=== PATIENT | female | born 1995 | race Two or more races ===

== ENCOUNTER 2023-01-19 13:39 | Outpatient (OUT) | payer MEDICAID, SELFPAY ==
--- NOTE | 2023-01-19 | US_ITS ---
The [address] [address] Patient Name: GUZMAN DEL CID MRN: [id number] date: 1995 Sex: F Assigned Patient Location: US Current Patient Location: US Accession/Order Number: [id number] Exam Date: 01/19/2023 14:15 Report Date: 01/19/2023 15:46 At the request of: BASIM BIRMINGHAM Procedure: US pelvis transvaginal EXAM: US pelvis transvaginal HISTORY: N92.6, N94.89, N92.1 irregular menses. Infertility. COMPARISON: None. TECHNIQUE: Realtime transvaginal imaging of the pelvis. Findings: The uterus measures 7.6 x 3.0 x 3.8 cm. Unremarkable parenchymal echotexture. No intrauterine mass. The endometrium is 0.2 cm thick. No fluid within the endometrial canal. Nabothian cysts. The right and left ovaries measure 3.2 x 1.5 x 2.2 and 2.0 x 1.2 x 2.4 cm. Bilateral ovarian follicles. Blood flow is identified bilaterally. No adnexal mass or free pelvic fluid. US/US pelvis transvaginal IMPRESSION: 1. Unremarkable sonographic appearance of the pelvis for age. Electronically authenticated by: EDEL MCDOWELL Date: 01/19/2023 15:46
[2023-01-19 14:19] LABS: Basophils Absolute Auto 0.1 10^3/uL (0.0-0.1); Basophils Percent Auto 0.8 % (0.2-2.0); Eosinophils Absolute Auto 0.5 10^3/uL (0.0-0.7); Eosinophils Percent Auto 5.8 % (0.9-7.0); Hematocrit 43.6 % (36.0-48.0); Hemoglobin 14.7 g/dL (12.0-16.0); Immature Granulocytes Abs Auto 0.01 10^3/uL (0.00-0.03); Immature Granulocytes Pct Auto 0.1 % (0.0-0.5); Lymphocytes Absolute Auto 2.8 10^3/uL (1.2-3.8); Lymphocytes Percent Auto 34.4 % (20.5-60.0); Mean Corpuscular HGB Conc 33.7 g/dL (29.9-35.2); Mean Corpuscular Hemoglobin 29.6 pg (26.7-34.0); Mean Corpuscular Volume 87.9 fL (81.0-99.0); Mean Platelet Volume 8.6 fL (9.5-13.5); Monocytes Absolute Auto 0.6 10^3/uL (0.3-0.8); Monocytes Percent Auto 7.3 % (1.7-12.0); Neutrophils Absolute Auto 4.1 10^3/uL (1.4-6.5); Neutrophils Percent Auto 51.6 % (43.0-75.0); Platelet Count 202 10^3/uL (150-450); Red Blood Count 4.96 10^6/uL (4.20-5.40); Red Cell Distribution Width 12.6 % (11.0-15.0)
[2023-01-19 14:30] LABS: Estimated Average Glucose 91 mg/dL; Glycohemoglobin A1C 4.8 % (4.5-6.2)
[2023-01-19 14:48] LABS: HCG Quantitative <1 mIU/mL; Thyroid Stimulating Hormone 2.316 uIU/mL (0.358-3.740)
[2023-01-19 14:49] LABS: Free T4 0.72 ng/dL (0.76-1.46)
[2023-01-20 04:07] LABS: DHEA-Sulfate 91.4 ug/dL (84.8-378.0); FSH 8.4 mIU/mL (.); Luteinizing Hormone(LH) 7.7 mIU/mL (.); Prolactin 4.4 ng/mL (4.8-23.3)
[2023-01-23 20:07] LABS: Anti-Mullerian Hormone (AMH) 0.895 ng/mL (.)
[2023-01-25 18:07] LABS: DHEA, Serum 141 ng/dL (31-701)
== END 2023-01-19 13:40 | disposition home or self-care (01) ==
PROVIDERS: PCP Nurse Practitioner Family; Visit Provider Obstetrics & Gynecology
DX: N92.1 Excessive and frequent menstruation with irregular cycle (principal); N92.6 Irregular menstruation, unspecified; N94.89 Other specified conditions associated with female genital organs and menstrual cycle
CPT/HCPCS: 36415; 76830; 82397; 82626; 82627; 83001; 83002; 83036; 84146; 84439; 84443; 84702; 85025

== ENCOUNTER 2023-04-20 14:12 | Outpatient (OUT) | payer MEDICAID, SELFPAY ==
[2023-04-21 04:09] LABS: Progesterone 13.6 ng/mL (.)
== END 2023-04-20 14:13 | disposition home or self-care (01) ==
LOC: LAB 14:17
PROVIDERS: PCP Nurse Practitioner Family; Visit Provider Obstetrics & Gynecology
DX: N97.0 Female infertility associated with anovulation (principal)
CPT/HCPCS: 36415; 84144

== ENCOUNTER 2024-02-20 22:37 | Outpatient (REF) | payer MEDICAID, SELFPAY ==
[2024-02-28 12:10] LABS: Age Gdln ACOG Testing Note (.); IGP, rfx Aptima HPV ASCU Note (.)
== END 2024-02-20 22:38 | disposition home or self-care (01) ==
LOC: LAB 22:37
PROVIDERS: PCP Nurse Practitioner Family; Visit Provider Obstetrics & Gynecology
DX: Z01.419 Encounter for gynecological examination (general) (routine) without abnormal findings (principal)
CPT/HCPCS: 88175

== ENCOUNTER 2024-11-17 09:40 | Emergency (ER) | payer MEDICAID, SELFPAY ==
--- OUTSIDE RECORDS SUMMARY | 2023-08-31 06:45 | XMS_ITS | Continuity of Care Document ---
Author Organization [facility] Address [address] [place] [address] Phone Care Team Providers Care Fuel Pilot Engineer Name Role Phone Jo Melvin DDS Unavailable [...] Visit Dental Bitewig-single Film Intraoral-periapical 1st Film Gwiubzkix-ufpwkftvsr-ttye Additional Jul Oral Hygiene Instruction Limited Oral Eval Oral/Facial Photographic Images 024 Prophylaxis Adult Nutrit Couns For Control Of [place] Dis Jul Oral Hygiene Instruction Oral Hygiene [...] Diagnoses Date Provider Providers Copied on Encounter [facility], [address] [place] [address], [id number], tel:[phone] Dental Clinic de (chief complaint) Encounter for screening for dental disorders [facility]. . tel:[phone] [facility], [address] [place] [address], [id number], [place] tel:[phone] Dental Clinic dl (chief complaint) Encounter for screening for dental disorders [facility]. [address] [place] [address], [id number], [place]. tel:[phone] [facility], [address] [place] [address], [id number], tel:[phone] Dental Clinic [place] (chief complaint) Body mass index [BMI] 28.0-28.9, adultEncounter for screening for dental disorders Aaron S Butch. [address] [place] [address], [id number], [place]. tel:[phone] [facility], [address] [place] [address], [id number], tel:[phone] Dental Clinic fill (chief complaint) Encounter for screening for dental disorders Ngoiz S Jo. . tel:[phone] [facility], [address] [place] [address], [id number], [place] tel:[phone] Dental Clinic fill (chief complaint) Encounter for screening for dental disorders Ngozi Osorio. . tel: [phone] [facility], [address] [place] [address], [id number], [place] tel:[phone] Dental Clinic fill (chief complaint) Encounter for screening for dental disorders Ngozi Osorio. . tel: [phone] [facility], [address] [place] [address], [id number], [place] tel:[phone] Dental Clinic DN (chief complaint) Encounter for screening for dental disorders Ngozi Osorio. . tel: [phone] Family History Family Member Type Diagnosis Age [...] 2022 due Goal Influenza vaccine. Due on due Goal Depression screening. Due on due Goal Depression screening. Due on due Goal RLP. Due on due Goal Tdap Vaccine. Due on 2022 due Goal PRAPARE ASSESSMENT. Due on S ep due Goal PAP. Due on due Goal Tdap. Due on due Goal Influenza vaccine. Due on Se due Goal PAP. Due on due Goal Tdap. Due on due Goal Depression screening. Due on due Goal RLP. Due on due Goal PRAPARE ASSESSMENT. Due on S due Goal Tdap Vaccine. Due on 2022 due Goal Influenza vaccine. Due on Se due Goal Influenza vaccine. Due on Au [...] Information Instructions Date Instruction Additional Infor natalia Giving encouragement to exercise Related to Body mass index [BMI] 28.0-28.9, adult Dietary management e ducation, guidance, and counseling Related to Body mass index [BMI] 28.0-28.9, adult Assessments Type Assessment Date No Information Patient Care Teams Name Effective Dates (start - stop) Status Members No Information
--- OUTSIDE RECORDS SUMMARY | 2024-11-17 09:49 | XMS_ITS | Encounter Summary ---
Author Organization [facility] Address [address] [place] [address] Care Team Providers Care Purchasing/Receiving Name Role Phone RosarioAmanda de la fuente Nikole EXTERIOR INTERIOR SPECIALIST Primary Care Provider Encounter Details Date Type Department Care Team (Late st Contact Info) Description 10/22/2024 Abstract [facility] [address] [place] [address] Kerrie Babcock MA Social History Tobacco Use Types Packs/Day Years Used Date Smoking Tobacco: Every Day Cigarettes 0.5 3 Smokeless Tobacco: Never Alcohol Use Standard Drinks/Week Comments Not Currently 0 (1 standard drink = 0.6 oz pure alcohol) caffeine: 1-2 cups per day tea Estimated Date of Delivery Comme nts Yes 04/23/2025 Based on Est. Da te of Conception Sex and Gender Information Value Date Recorded Sex Assigned at Female 01/19/2023 8:10 PM EDT Legal Sex Female 9:50 PM EDT Gender Identity Female 01/19/2023 8:10 PM EDT Sexual Orientation Not on file documented as of this encounter Plan of Treatment Upcoming Encounters Date Type Department Care Team (Late st Contact Info) Description 11/20/2024 8:40 AM EDT Routine [facility] [address] [place] [address] Les Martinez DO [address] [place] [address] 02/20/2025 1:00 PM EST Office Visit [facility] [place] [facility] [address] [place] [phone] Les Martinez DO [address] [place] [address] 08/21/2025 9:30 AM EDT Office Visit [facility] [address] [place] [address] Darleen Sinclair MD [address] [place] [address] documented as of this encounter Goals Goal Patient Goal Type Associated Problems Recent Progress Patient-Stated? Author Reminders Care Plan OB Reminders No Open Scheduling, Background documented as of this encounter Visit Diagnoses Not on filedocumented in this encounter Additional Health Concerns Active Problems Noted Date Diagnosed Date OB Reminders 10/22/2024 documented as of this encounter Care Teams Purchasing/Receiving Relationship Specialty Start Date End Date Amanda Ford NP [address] [facility] [place] [address] PCP - General Family Medicine 01/17/23 documented as of this encounter
--- OUTSIDE RECORDS SUMMARY | 2024-11-17 09:49 | XMS_ITS | Encounter Summary ---
Author Organization [facility] Address [address] [place] [address] Care Team Providers Care Emts Name Role Phone RosarioAmanda de la fuente Nikole CALCINE FURNACE TENDER Primary Care Provider Encounter Details Date Type Department Care Team (Late st Contact Info) Description 10/22/2024 Abstract [facility] [address] [place] [address] Kerrie Babcock MA Social History Tobacco [...] EDT Routine [facility] [address] [place] [address] Les Martinez DO [address] [place] [address] 02/20/2025 1:00 PM EST Office Visit [facility] [place] [facility] [address] [place] [phone] Les Martinez DO [address] [place] [address] 08/21/2025 9:30 AM EDT Office Visit [facility] [address] [place] [address] Darleen Sinclair MD [address] [place] [address] documented as of this encounter Goals Goal Patient Goal Type Associated Problems Recent Progress Patient-Stated? Author Reminders Care Plan OB Reminders No Open Scheduling, Background documented as of this encounter Visit Diagnoses Not on filedocumented in this encounter Additional Health Concerns Active Problems Noted Date Diagnosed Date OB Reminders 10/22/2024 documented as of this encounter Care Teams Emts Relationship Specialty Start Date End Date Amanda Ford NP [address] [facility] [place] [address] PCP - General Family Medicine 01/17/23 documented as of this encounter
--- OUTSIDE RECORDS SUMMARY | 2024-11-17 09:49 | XMS_ITS | Encounter Summary ---
Author Organization [facility] Address [address], [address] [place] [address] Care Team Providers Care Mimeographer Name Role Phone Robin Marquez MD Primary Care Provider [phone] Reason for Visit * Reason Comments Medication Refill Encounter Details Date Type Department Care Team (Late st Contact Info) Description 03/08/2019 Refill [facility] [address] [place] [address] [place] [phone] Christina Arreguin, ELECTRICAL SIGN WIRER - FOOTBALL COACH Medication Refill Social History Tobacco Use Types Packs/Day Years Used Date Smoking Tobacco: Never Smokeless Tobacco: Never Alcohol Use Standard Drinks/Week Comments No 0 (1 standard drink = 0.6 oz pur e alcohol) Comments No Sex and Gender Information Value Date Recorded Sex Assigned at Not on file Legal Sex Female 7:37 PM EST Gender Identity Not on file Sexual Orientation Not on file documented as of this encounter Plan of Treatment Not on file documented as of this encounter Visit Diagnoses Diagnosis Vitamin D deficiency Unspecified vitamin D deficiency documented in this encounter Additional Health Concerns Infection Onset Date Last Indicated Resolved Time COVID-19 (Rule Out) 05/02/2020 05/02/2020 05/04/19 21 6:03 AM EST documented as of this encounter Care Teams Mimeographer Relationship Specialty Start Date End Date Robin Marquez MD [address] [place] [address] PCP - General Family Medicine 10/10/18 documented as of this encounter
--- OUTSIDE RECORDS SUMMARY | 2024-11-17 09:49 | XMS_ITS | Encounter Summary ---
Author Organization [facility] Address [address] [place] [address] Care Team Providers Care Box Office Manager Name Role Phone RosarioAmanda de la fuente Nikole ECONOMIC SPECIALIST Primary Care Provider Encounter Details Date Type Department Care Team (Late st Contact Info) Description 10/22/2024 Abstract [facility] [address] [place] [address] Kerrie Babcock MA Social History Tobacco [...] EDT Routine [facility] [address] [place] [address] Les Martinez DO [address] [place] [address] 02/20/2025 1:00 PM EST Office Visit [facility] [place] [facility] [address] [place] [phone] Les Martinez DO [address] [place] [address] 08/21/2025 9:30 AM EDT Office Visit [facility] [address] [place] [address] Darleen Sinclair MD [address] [place] [address] documented as of this encounter Goals Goal Patient Goal Type Associated Problems Recent Progress Patient-Stated? Author Reminders Care Plan OB Reminders No Open Scheduling, Background documented as of this encounter Visit Diagnoses Not on filedocumented in this encounter Additional Health Concerns Active Problems Noted Date Diagnosed Date OB Reminders 10/22/2024 documented as of this encounter Care Teams Box Office Manager Relationship Specialty Start Date End Date Amanda Ford NP [address] [place] [place] [address] PCP - General Family Medicine 01/17/23 documented as of this encounter
--- OUTSIDE RECORDS SUMMARY | 2024-11-17 09:49 | XMS_ITS | Clinical Summary ---
Author Organization [facility] Address [address], [address] [place] [address] Care Team Providers Care Scleroscope Tester Name Role Phone Robin Marquez MD Primary Care Provider [phone] Allergies No known active allergies Medications levothyroxine (SYNTHROID) 175 MCG tablet TAKE 2 TABLETS BY MOUTH ONCE DAILY 2 9 Active ALPRAZolam (XANAX) 0.5 MG tablet TAKE 1 TO 2 TABLETS BY MOUTH AT BEDTIME NEEDED FOR ANXIETY FOR 30 DAYS 0 Active calcium carbonate (TUMS) 500 MG chewable tablet Take 1 tablet by mouth daily Active folic acid (FOLVITE) 1 MG tabletIndicatio ns:Low folate Take 1 tablet by mouth daily 30 tablet 1 Active Additional Information Patient not taking.Reported on 11/10/2020 busPIRone (BUSPAR) 10 MG tablet 1 Active lansoprazole (PREVACID) 30 MG delayed release capsule Take 30 mg by mouth daily Active Multiple Vitamins-Minera ls (THERAPEUTIC MULTIVITAMIN-CA NERALS) tablet Take 1 tablet by mouth daily Active D3 MAXIMUM STRENGTH 125 MCG (5000 UT) CAPS capsule TAKE 1 CAPSULE BY MOUTH ONCE DAILY WITH FOOD FOR 14 DAYS 1 Active Active Problems Patient Care Coordination No te Formatting of this note is d ifferent from the original. Post -op Bariatric Summary Procedure: sleeve Surgeon:Dr. Bianchi HT: 6' Date Weight Labs Ordered Labs Resulted Notes Initial Wt 10-10-18 443 Day of Surgery 05-06-20 419 1 Wk Post-op 05-14-20 405 5 Wk Post-op 06-13-20 383 y 3 Mon Post-op 08/11/20 344 Not ordered 08/08/20 6 Mon Post-op 11-10-20 300 9 Mon Post-op 02-09-21 258 ?y 1 Year Post-op 05-14-21 220 ? Annual ? ? Starting at 1 Wk Post-op: Bariatric Multivitamin with iron and Calcium Problem Noted Date Diagnosed Date Right upper quadrant abdominal pain 03/30/2021 Bradycardia 03/30/2021 Orthostatic dizziness 03/30/2021 Obesity (BMI 30-39.9) 02/09/2021 Obesity, Class III, BMI 40-49.9 (morbid obesity) 11/10/2020 Chronic low back pain 11/10/2020 Status post laparoscopic sleeve gastrectomy 04/18 Vitamin D deficiency 01/12/2019 Hypothyroidism 12/05/2018 Bipolar disease, chronic 12/05/2018 Plantar fasciitis, bilateral 12/05/2018 Marijuana use 12/05/2018 Resolved Problems Problem Noted Date Diagnosed Date Resolved Date Morbid obesity with BMI of 50.0-59.9, adult 04/27/2019 11/10/2020 Morbid obesity with BMI of 60.0-69.9, adult 12/05/2018 04/27/2019 Family History Medical History Relation Name Comments High Blood Pressure Father Other Mother Other Sister Relation Name Status Comments Father Alive thyroid Mother Alive thyroid Sister Other thyroid Social History Tobacco Use Types Packs/Day Years Used Date Smoking Tobacco: Never Smokeless Tobacco: Never Alcohol Use Standard Drinks/Week Comments No 0 (1 standard drink = 0.6 oz pur e alcohol) Comments No Sex and Gender Information Value Date Recorded Sex Assigned at Not on file Legal Sex Female 7:37 PM EST Gender Identity Not on file Sexual Orientation Not on file Last Filed Vital Signs Vital Sign Reading Time Taken Comments Blood Pressure 110/60 05/14/2021 2:44 PM EST Pulse 60 05/14/2021 2:44 PM EST Temperature 36.7 C (98.1 F) 03/30/2021 5:10 PM EST Respiratory Rate 20 03/30/2021 5:10 PM EST Oxygen Saturation 99% 03/30/2021 5:10 PM EST Inhaled Oxygen Concentration - - Weight 93 kg (205 lb) 09/04/2021 9:27 AM EDT Height 182.9 cm (6') 09/04/2021 9:27 AM EDT Body Mass Index 27.8 09/04/2021 9:27 AM EDT Plan of Treatment Not on file Insurance [employer] Advance Directives * Full Code (Latest Code Status on File) Date Activated Date Inactivated Comments 05/06/2020 4:42 PM 05/08/2020 3:13 PM Care Teams Scleroscope Tester Relationship Specialty Start Date End Date Robin Marquez MD [address] [id number] PCP - General Family Medicine 10/10/18
--- OUTSIDE RECORDS SUMMARY | 2024-11-17 09:49 | XMS_ITS | Clinical Summary ---
Author Organization [facility] Address [address] [place] [address] Care Team Providers Care Portfolio Director Name Role Phone Unavailable Primary Care Provider Unavailabl e Medications naltrexone 50 mg tablet Take 2 tablets by mouth two times a day. 06/03/2023 Active lansoprazole (PREVACID) 30 mg capsule Take 30 mg by mouth once daily. Active acetaminophen (TYLENOL) 500 mg tablet Take 500 mg by mouth every 8 hours as needed for pain. 12/06/2023 Active lamoTRIgine (LAMICTAL) 200 mg tablet Take 200 mg by mouth once daily. Active Polysaccharide Iron Complex (PRO FE) 180 mg iron cap Take 2 capsules by mouth two times a day. Active docusate sodium (COLACE) 100 mg capsule Take 100 mg by mouth two times a day as needed for constipation. Active busPIRone (BUSPAR) 15 mg tablet Take 15 mg by mouth two times a day. Active levothyroxine 50 mcg cap Take 50 mcg by mouth every morning. 10/13/2023 Active QUEtiapine (SEROQUEL) 25 mg tablet Take 25 mg by mouth daily at bedtime. Active buPROPion SR (WELLBUTRIN SR) 150 mg 12 hr tablet Take 1 tablet by mouth once daily. 90 tablet 08/20/2024 Active PNV Combo No.47-Iron-FA #1-DHA (PNV-DHA) 27 mg iron-1 mg -300 mg Take 1 capsule by mouth once daily. 08/20/2024 Active Active Problems Comments Yes No known active problems Encounters Date Type Department Care Team Description 09/03/2024 10:40 AM EDT Nurse Visit Reproductive Endocrinology Infertility [address] [place], [place] [id number] Early stage of (HCC) 09/03/2024 Patient Msg Reproductive Endocrinology Infertility [address] [facility] [address] Manisha Powell APRN.CNP Congratulations!!! 08/28/2024 11:10 AM EDT Nurse Visit Reproductive Endocrinology Infertility [address] [place] [address] 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) 08/24/2024 Telephone Reproductive Endocrinology Infertility [address] [place] [address] Shelly Hernandez APRN.PBX REPAIRER Patient Question 08/23/2024 Telephone [facility] Endocrinology [facility] [address] [place] [address] Shelly Hernandez APRN.PBX REPAIRER Pain 08/20/2024 8:30 AM EDT [facility] Reproductive Endocrinology Infertility [address] [place] [address] Shelly Hernandez APRN.JARROD 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) (Primary Dx) 08/18/2024 Get Medical Advice Reproductive Endocrinology Infertility [address] [place] [address] Shelly Hernandez APRN.PBX REPAIRER Ultrasound 08/17/2024 Travel from Last 3 Months Family History Medical History Relation Comments Diabetes Maternal Grandfather HTN Maternal Grandfather Relation Status Comments Maternal Grandfather Social History Tobacco Use Types Packs/Day Years Used Date Smoking Tobacco: Never Assessed Area Deprivation Index Answer Date Claudio rded National Score (1-100), lower number is lower ri sk 82 02/28/2024 State Score (1-10), lower number is lower risk 7 02/28/2024 Data from: https://www.neighborhoodatlas.medicine.[facility].edu/. Last address used for calculation [address] 02/28/2024 Comments Yes Sex and Gender Information Value Date Recorded Sex Assigned at Not on file Legal Sex Female 12:45 PM EDT Gender Identity Not on file Sexual Orientation Not on file Last Filed Vital Signs Vital Sign Reading Time Taken Comments Blood Pressure - - Pulse - - Temperature - - Respiratory Rate - - Oxygen Saturation - - Inhaled Oxygen Concentration - - Weight 98.3 kg (216 lb 11.4 oz) 02/28/2024 2:03 PM EST Height 180.3 cm (5' 11 ) 02/28/2024 2:03 PM EST Body Mass Index 30.23 02/28/2024 2:03 PM EST Plan of Treatment Health Maintenance Due Date Last Done Comments Anxiety Screening 2013 Depression Screening 2013 Hepatitis B Vaccine (1 of 3 - 19+ 3-dose series) 03/04 Cervical Cancer Screening 2016 Influenza Vaccine (#1) 2024 DTaP,Tdap,Td Vaccine (2 - Td or Tdap) 12/25/203212/2022 RSV Vaccine (1 - 1-dose 75+ series) 2070 HIV Screening Completed 04/02/2024 Hepatitis C Screening Completed 04/02/2024 Procedures Procedure Name Priority Date/Time Associated Diagnosis Comments OBSTETRIC ULTRASOUND WHI Routine 09/03/2024 10:27 AM EDT Early stage of (HCC) OBSTETRIC ULTRASOUND WHI Routine 08/28/2024 11:06 AM EDT 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) EXTERNAL LAB 08/17/2024 5:36 PM EDT EXTERNAL LAB 08/17/2024 11:53 AM EDT HIV 1/2 COMBO WITH REFLEX TO DIFFERENTIATION Routine 04/02/2024 3:21 PM EST Special screening examination for infectious diseases HEPATITIS C ANTIBODY IA WITH CONFIRMATION Routine 04/02/2024 3:21 PM EST Special screening examination for infectious diseases from Last 3 Months or Most Recently Relevant to Health Maintenance Results * OBSTETRIC ULTRASOUND WHI (09/03/2024 10:27 AM EDT) Anatomical Region Laterality Modality Other 09/03/2024 10:2 7 AM EDT Narrative 09/03/2024 12:12 PM EDT Indication Viability, Repeat Impression - Single, live, intrauterine . - An intrauterine gestational sac with a yolk sac and pole is present. - Laplace rump length measurement is consistent with the established gestational age. - heart rate is within normal limits. Recommendations Referral to OB Maternal Assessment Height 180 cm Height (ft) 5 ft Height (in) 11 in Weight 98 kg Weight (lb) 216 lb BMI 30.13 kg/m Method Transvaginal ultrasound examination [place] . Number of embryos: 1 Dating LMP on: 07/19/2024 GA by LMP 6 w + 4 d DARWIN by LMP: 04/25/2025 Conception on: 07/31/2024 GA by conception 6 w + 6 d DARWIN by conception: 04/23/2025 Ultrasound examination on: 09/03/2024 GA by U/S based upon: CRL GA by U/S 6 w + 5 d DARWIN by U/S: 04/24/2025 Assigned: based on the conception date, selected on 09/03/2024 Assigned GA 6 w + 6 d Assigned DARWIN: 04/23/2025 Biometry Standard FHR 114 bpm CRL 8.3 mm 6w 5d 71% Hadlock Extended YS 1.9 mm <1% Grisolia Assessment Gestational sac: visualized Location: intrauterine Yolk sac: visualized YS 1.9 mm <1% Grisolia Embryo: visualized CRL 8.3 mm 6w 5d 71% Hadlock Cardiac activity: present FHR 114 bpm Other: small hematoma 7 x 3 x 3 mm Maternal Structures Uterus / Cervix Uterus: Visualized Ovaries / Tubes / Adnexa Rt ovary: Visualized Rt ovarian corpus luteum: hemorrhagic Rt ovarian corpus luteum D1 15.0 mm Rt ovarian corpus luteum D2 16.0 mm Rt ovarian corpus luteum D3 19.0 mm Rt ovarian cyst(s): Cysts identified Rt ovarian cyst D1 10 mm Rt ovarian cyst D2 10 mm Rt ovarian cyst D3 12 mm Rt ovarian cyst mean 10.7 mm Rt ovarian cyst vol 0.628 cm Rt ovarian cyst findings: corpus luteum Lt ovary: Visualized Performed By: Nina Farnsworth; COBY Read By: Phoenix Raymond M.D. Shelly Hernandez WRAPPER CASER.[facility] Final Result * OBSTETRIC ULTRASOUND WHI (08/28/2024 11:06 AM EDT) Anatomical Region Laterality Modality Other 08/28/2024 11:0 6 AM EDT Narrative 08/28/2024 3:42 PM EDT Indication Viability Impression - Single, live, intrauterine . - An intrauterine gestational sac with a yolk sac and embryo is present. - Laplace rump length measurement is consistent with the established gestational age. - heart rate is within normal limits. - A small subchorionic hematoma noted. Recommendations recommend repeat scan in 7-14 days for follow up growth. Method Transvaginal ultrasound examination [place] . Number of embryos: 1 Dating LMP on: 07/19/2024 GA by LMP 5 w + 5 d DARWIN by LMP: 04/25/2025 Conception on: 07/31/2024 GA by conception 6 w + 0 d DARWIN by conception: 04/23/2025 Ultrasound examination on: 08/28/2024 GA by U/S based upon: CRL GA by U/S 5 w + 6 d DARWIN by U/S: 04/24/2025 Assigned: based on the conception date, selected on 08/28/2024 Assigned GA 6 w + 0 d Assigned DARWIN: 04/23/2025 Biometry Standard FHR 100 bpm CRL 2.4 mm 5w 6d <1% Hadlock Extended YS 2.1 mm <1% Grisolia Assessment Gestational sac: visualized Location: intrauterine Yolk sac: visualized YS 2.1 mm <1% Gr[place]ia Embryo: visualized CRL 2.4 mm 5w 6d <1% Hadlock Cardiac activity: present FHR 100 bpm Other: subchorionic hematoma noted measuring 16 x 7 x 11 mm Maternal Structures Uterus / Cervix Uterus: Visualized Uterus position: anteverted Description of uterine malformations: none Myometrium: normal Uterus length 88 mm Uterus width 57 mm Uterus height 40 mm Uterus Vol 106.4 cm Cervix: Visualized Cervix details: normal Ovaries / Tubes / Adnexa Rt ovary: Visualized Rt ovary morphology: normal Rt ovary D1 31 mm Rt ovary D2 22 mm Rt ovary D3 24 mm Rt ovary Vol 8.6 cm Rt ovarian cyst(s): Cysts identified Rt ovarian cyst D1 17 mm Rt ovarian cyst D2 17 mm Rt ovarian cyst D3 16 mm Rt ovarian cyst mean 16.7 mm Rt ovarian cyst vol 2.421 cm Rt ovarian cyst findings: Corpus luteum Lt ovary: Visualized Lt ovary morphology: normal Lt ovary D1 28 mm Lt ovary D2 20 mm Lt ovary D3 13 mm Lt ovary Vol 3.8 cm Cul de Sac / Bladder / Kidneys / Other Cul de Sac: Visualized Free fluid: no free fluid visualized Performed By: Arelis Chavez RDMS Read By: Hanna Glynn M.D. Shelly Hernandez APRN.PBX REPAIRER [facility] Final Result * EXTERNAL LAB (08/17/2024 5:36 PM EDT) Only the most recent of2 resultswithin the time period is included. us External Provider PA-C LABORATORY Final Res ult * HIV 1/2 COMBO WITH REFLEX TO DIFFERENTIATION (04/02/2024 3:21 PM EST) HIV 12 Combo (Ag/Ab) Nonreactive Nonreactive 04/03/2024 12:27 PM EST [facility] HIV-1/2 AB (Confirmatory) 04/03/2024 12:27 PM EST [facility] Comment:Test not indicated. HIV Interpretation 04/03/2024 12:27 PM EST [facility] Comment: No evidence of HIV-1 or HIV-2 infection. Should recent infection be suspected, repeat testing may be considered 2-3 weeks after this draw. [place] Rev. Code 3701.243(E): This information has been disclosed to you from confidential records protected from disclosure by state law. You shall make no further disclosure of this information without the specific, written, and informed release of the individual to whom it pertains or as otherwise permitted by state law. A general authorization for the release of medical or other information is not sufficient for the purpose of the release of HIV test results or diagnoses. Blood BLOOD SPECIMEN / Unknown Venipuncture / Unknown 04/02/2024 3:21 PM EST 04/02/2024 3:22 PM EST Shelly Hernandez WRAPPER CASER.PBX REPAIRER LABORATORY Final Result [facility] [address] [address], * HEPATITIS C ANTIBODY IA WITH CONFIRMATION (04/02/2024 3:21 PM EST) Hep C Antibody IA Negative Negative 04/03/2024 11:20 AM EST [facility] Comment:The result suggests no evidence of active infection with Hepatitis C virus. Should recent infection be suspected, repeat testing may be considered 4-6 weeks after this draw. Blood BLOOD SPECIMEN / Unknown Venipuncture / Unknown 04/02/2024 3:21 PM EST 04/02/2024 3:22 PM EST us Shelly Hernandez WRAPPER CASER.PBX REPAIRER LABORATORY Final Result [facility] [address] [facility] [facility] [address] [place] [address], from Last 3 Months or Most Recently Relevant to Health Maintenance Insurance [employer] BC[employer] [place]
--- OUTSIDE RECORDS SUMMARY | 2024-11-17 09:49 | XMS_ITS ---
Author Organization [facility] Source Produ ction (ClinicalSummary Clone) Address Unknown Care Team Providers Care Radiation Control Worker Name Role Phone Unavailable Primary Care Physician Unavailab le Results * [UNITY] ANEUPLOIDY NIPT Performed by: iRule Component Value Range Date Fraction 5.3% 10/17/2024 03 :23 am UT Rh(D) NIPT RhD DETECTED 10/17/2024 03:2 3 am UT Sex Chromosome Aneuploidy NOT DETECTED 03:23 am UT Monosomy X LOW RISK <1 in 10,000 2024 03:23 am UT Trisomy 13 LOW RISK <1 in 10,000 2024 03:23 am UTC Trisomy 18 LOW RISK <1 in 10,000 2024 03:23 am UT Trisomy 21 LOW RISK <1 in 10,000 2024 03:23 am UT Sex FEMALE 10/17/2024 03:2 3 am UTC Gestation CHRISTINA 10/18/19 03:23 am UT For detailed report, see PDF See PDF 10/17/2024 03:23 am UTC 10/17/2024 03:2 3 am [facility] Social History Observation Value Start Date End Date
--- OUTSIDE RECORDS SUMMARY | 2024-11-17 09:49 | XMS_ITS | Encounter Summary ---
Author Organization [facility] Address [address] [place] [address] Care Team Providers Care Cookie Breaker Name Role Phone Jovaninikkie Amanda Nikole MILLINERY DEPARTMENT MANAGER Primary Care Provider Encounter Details Date Type Department Care Team (Late Contact Info) Description 10/17/2024 Abstract [facility] [address] [facility] [address] Les Martinez DO [address] [facility] [address] [place], [place] [address] Social History Tobacco Use Types Packs/Day Years [...] 8:40 AM EDT Routine [facility] [address] [place] [phone] Les Martinez, DO [address] [facility] [place] [address] 02/20/2025 1:00 PM EST Office Visit [facility] [address] [facility] [phone] Les Martinez, DO [address] [facility] [address] [place], [place] [id number] 08/21/2025 9:30 AM EDT Office Visit [facility] [address] [place] [phone] Darleen Sinclair MD [address] [place] [address] documented as of this encounter Visit Diagnoses Not on filedocumented in this encounter Care Teams Cookie Breaker Relationship Specialty Start Date End Date Amanda Ford NP [address] [facility] [place] [address] PCP - General Family Medicine 01/17/23 documented as of this encounter
--- OUTSIDE RECORDS SUMMARY | 2024-11-17 09:49 | XMS_ITS | Encounter Summary ---
Author Organization [facility] Address [address] [place] [address] Care Team Providers Care Quality Control Clerk Name Role Phone Mariam Fordfer Nikole SOURCING INTERN Primary Care Provider Reason for Visit * Reason Comments Med Refill Encounter Details Date Type Department Care Team (Late st Contact Info) Description 11/05/2024 Refill [facility] [address] [place] [phone] Les Martinez DO [address] [address] [place], [facility] Other iron deficiency anemia Social History Tobacco Use Types Packs/Day Years [...] Info) Description 11/20/2024 8:40 AM EDT Routine [facility] [address] [facility] [phone] Les Martinez, DO [address] [facility] [place] [address] 02/20/2025 1:00 PM EST Office Visit [facility] [address] [facility] [phone] Les Martinez, DO [address] [facility] [place] [address] 08/21/2025 9:30 AM EDT Office Visit [facility] [address] [place] [address] Darleen Sinclair MD [address] [place] [address] documented as of this encounter Goals Goal Patient Goal Type Associated Problems Recent Progress Patient-Stated? Author Reminders Care Plan OB Reminders No Open Scheduling, Background documented as of this encounter Visit Diagnoses Diagnosis Other iron deficiency anemia documented in this encounter Additional Health Concerns Active Problems Noted Date Diagnosed Date OB Reminders 10/22/2024 documented as of this encounter Care Teams Quality Control Clerk Relationship Specialty Start Date End Date Amanda Ford NP [address] [facility] [place] [address] PCP - General Family Medicine 01/17/23 documented as of this encounter
--- OUTSIDE RECORDS SUMMARY | 2024-11-17 09:49 | XMS_ITS | Encounter Summary ---
Author Organization [facility] Address [address] [facility] [address], [address] [place] [address] Care Team Providers Care Workers Compensation Analyst Name Role Phone Robin Marquez MD Primary Care Provider [phone] Reason for Visit * Reason Comments Medication Refill Encounter Details Date Type Department Care Team (Late st Contact Info) Description 03/22/2019 Refill [facility] [address] [place] [address] [place] [phone] Christina Arreguin, BOLT SORTER - INTEGRITY CONSULTANT Medication Refill Social History Tobacco Use Types [...] documented as of this encounter Care Teams Workers Compensation Analyst Relationship Specialty Start Date End Date Robin Marquez MD [address] [place] [address] PCP - General Family Medicine 10/10/18 documented as of this encounter
[2024-11-17 09:50] VITALS: BP 137/68; PULSE 61; TEMP 36.6; O2SAT 97; BMI 33.5
--- OUTSIDE RECORDS SUMMARY | 2024-11-17 09:50 | XMS_ITS | Encounter Summary ---
Author Organization [facility] Address [address] [place] [address] Care Team Providers Care Commodity Trader Name Role Phone Unavailable Primary Care Provider Unavailabl e Source Comments In the event this information is protected by the Federal Confidentiality of Alcohol and Drug AbusePatient Records regulations: The Federal rules restrict any use of the information to criminally investigate or prosecute any alcohol or drug abuse patient.[facility] Encounter Details Date Type Department Care Team (Latest Contact Info) Description 05/09/2024 Patient Msg Reproductive Endocrinology Infertility [address] [place] [address] Shelly Hernandez APRN.SOFTWARE SYSTEMS ANALYST [address] [place] [address] Summary of Next Steps Social History Tobacco Use Types Packs/Day Years Used Date Smoking Tobacco: Never Assessed Area Deprivation Index Answer Date Claudio rded National Score (1-100), lower number is lower ri sk 82 02/28/2024 State Score (1-10), lower number is lower risk 7 02/28/2024 Data from: https://www.neighborhoodatlas.medicine.[facility].edu/. Last address used for calculation [address] 02/28/2024 Comments No Sex and Gender Information Value Date Recorded Sex Assigned at Not on file Legal Sex Female 12:45 PM EDT Gender Identity Not on file Sexual Orientation Not on file documented as of this encounter Plan of Treatment Not on file documented as of this encounter Visit Diagnoses Not on filedocumented in this encounter
--- OUTSIDE RECORDS SUMMARY | 2024-11-17 09:50 | XMS_ITS ---
Author Organization [facility] Source Produ ction (ClinicalSummary Clone) Address Unknown Care Team Providers Care Mechanical And Auto Body Car Checker Name Role Phone Unavailable Primary Care Physician Unavailab le Results * [UNITY] CARRIER SCREEN Performed by: [employer] Component Value Range Date Sickle Cell Disease/Beta-Thalassemia/Hemo globinopathies carrier screen NEGATIVE 10/19/2024 03:45 am UT Alpha-Thalassemia carrier screen NEGATIVE 10/19/2024 03:45 am UT Cystic Fibrosis carrier screen NEGATIVE 10/19/2024 03:45 am UT Spinal Muscular Atrophy carrier screen NEGATIVE 2 SMN1 copies, SNP not present 10/19/2024 03:45 am UT For detailed report, see PDF See PDF 10/19/2024 03:45 am UTC 10/19/2024 03:4 5 am [facility] Social History Observation Value Start Date End Date
--- OUTSIDE RECORDS SUMMARY | 2024-11-17 09:50 | XMS_ITS | Clinical Summary ---
Author Organization [facility] Address [address] [place] [address] Phone Care Team Providers Care Motorcycle Delivery Driver Name Role Phone Unavailable Primary Care Provider Unavailabl e Social History Tobacco Use Types Packs/Day Years Used Date Smoking Tobacco: Never Assessed Comments Unknown Sex and Gender Information Value Date Recorded Sex Assigned at Not on file Legal Sex Female 8:23 AM EDT Gender Identity Not on file Sexual Orientation Not on file Plan of Treatment Health Maintenance Due Date Last Done Comments HIV Screening 1995 Lipid Panel 1995 MMR Vaccines (1 of 1 - Standard series) 1996 Hepatitis C Screening 2013 Hepatitis B Vaccines (1 of 3 - 19+ 3-dose series) 2014 HPV/Cotest 2016 HPV Vaccines (1 - 3-dose standard series) 2022 COVID-19 Vaccine (3 - 2023-2 5 season) 2023 08/19/2020, 07/22/2020 Influenza Vaccine (#1) 2024 Yearly Adult Physical 02/20/2025 02/20/2024 Cervical Cancer Screening 02/19/2027 Pap Smear 02/19/2027 02/20/2024 DTaP/Tdap/Td Vaccines (2 - T d or Tdap) 12/25/2032 12/25/2022 Zoster Vaccines (1 of 2) 2045 HIB Vaccines Aged Out No longer eligi ble based on patient's age to complete this topic Hepatitis A Vaccines Aged Out No long er eligible based on patient's age to complete this topic IPV Vaccines Aged Out No longer eligi ble based on patient's age to complete this topic Meningococcal Vaccine Aged Out No allison larissa eligible based on patient's age to complete this topic Pneumococcal Vaccine: Pediatrics and At-Risk Adult Patients Aged Out No longer eligible b ased on patient's age to complete this topic Rotavirus Vaccines Aged Out No longer eligible based on patient's age to complete this topic Insurance [facility] MEDICAID
--- OUTSIDE RECORDS SUMMARY | 2024-11-17 09:50 | XMS_ITS | Encounter Summary ---
Author Organization [facility] Address [address] [place] [address] Care Team Providers Care Shovel Engineer Name Role Phone Unavailable Primary Care Provider Unavailabl e Source Comments In the event this information is protected by the Federal Confidentiality of Alcohol and Drug AbusePatient Records regulations: The Federal rules restrict any use of the information to criminally investigate or prosecute any alcohol or drug abuse patient.[facility] Encounter Details Date Type Department Care Team (Late st Contact Info) Description 05/15/2024 Get Medical Advice Reproductive Endocrinology Infertility [address] [place] [address] Shelly Hernandez APRN.PROOF SORTER [address] [place] [address] [employer] order Social History Tobacco Use Types Packs/Day Years Used Date Smoking Tobacco: Never Assessed Area Deprivation Index Answer Date Claudio rded National Score (1-100), lower number is lower ri sk 82 02/28/2024 State Score (1-10), lower number is lower risk 7 02/28/2024 Data from: https://www.neighborhoodatlas.medicine.[facility].edu/. Last address used for calculation [address] [...]
--- OUTSIDE RECORDS SUMMARY | 2024-11-17 09:50 | XMS_ITS | Encounter Summary ---
Author Organization [facility] Address [address] [place] [address] Care Team Providers Care Transformer Stock Clerk Name Role Phone MerylAmanda cervantes Nikole COLLECTION TECHNICIAN Primary Care Provider Encounter Details Date Type Department Care Team (Late st Contact Info) Description 05/04/2023 Abstract [facility] [address] [place] [phone] Lilibeth Green LPN [address] [facility] [place] [address] Social History Tobacco Use Types Packs/Day Years Used Date Smoking Tobacco: Every Day Cigarettes Alcohol Use Standard Drinks/Week Comments Yes 0 (1 standard drink = 0.6 oz pur e alcohol) caffeine: 1-2 cups per day tea Comments No Sex and Gender Information Value Date Recorded Sex Assigned at Female 01/19/2023 8:10 PM EDT Legal Sex Female 9:50 PM EDT Gender Identity Female 01/19/2023 8:10 PM EDT Sexual Orientation Not on file documented as of this encounter Plan of Treatment Upcoming Encounters Date Type Department Care Team (Late Contact Info) Description 11/20/2024 8:40 AM EDT Routine [facility] [address] [place] [address] Les Martinez DO [address] [place] [address] 02/20/2025 1:00 PM EST Office Visit [facility] [address] [facility] [place] [phone] Les Martinez DO [address] [facility] [place] [address] 08/21/2025 9:30 AM EDT Office Visit [facility] [address] [place] [address] Darleen Sinclair MD [address] [place] [address] documented as of this encounter Visit Diagnoses Not on filedocumented in this encounter Care Teams Transformer Stock Clerk Relationship Specialty Start Date End Date Amanda Ford NP [address] [place] [address] [place] [address] PCP - General Family Medicine 01/17/23 documented as of this encounter
--- OUTSIDE RECORDS SUMMARY | 2024-11-17 09:50 | XMS_ITS | Clinical Summary ---
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 Medications docusate sodium (Colace) 100 MG capsule 1 (one) time each day at the same time 06/18/19 23 Active lansoprazole (Prevacid) [address] capsule Take 30 mg by mouth Daily Active QUEtiapine (SEROquel) 25 MG tablet Take 25 mg by mouth at bedtime Active levothyroxine (Synthroid, Levoxyl) 50 MCG tabletIndications:N ontoxic goiter Take 1 tablet (50 mcg) by mouth in the morning. Take before meals. 90 tablet 3 08/23/19 25 026 Active sertraline (Zoloft) 25 MG tablet Take 25 mg by mouth 1 (one) time each day at the same time 09/26/19 25 Active ProFe 391.3 (180 Fe) MG capsuleIndications: Other iron deficiency anemia TAKE 1 CAPSULE BY MOUTH TWICE DAILY IN THE MORNING AND BEFORE BEDTIME 60 capsule 3 11/07/19 25 Active busPIRone (Buspar) 15 MG tablet Take 1 tablet by mouth as needed in the morning and 1 tablet as needed at noon and 1 tablet as needed in the evening. 025 Discontinued Strattera 40 MG capsule 1 (one) time each day at the same time. 01/26/20 025 Discontinued LaMICtal 200 MG tablet 025 Discontinued ferrous sulfate 325 (65 Fe) MG tablet 1 (one) time each day at the same time. 06/18/19 025 Discontinued iron polysaccharides (ProFe) 391.3 (180 Fe) MG capsuleIndications: Other iron deficiency anemia TAKE 1 CAPSULE BY MOUTH TWICE DAILY(MORN ING AND BEFORE BED) 60 capsule 3 07/12/19 025 Discontinued cyclobenzaprine (Flexeril) 10 MG tablet Take 5 mg by mouth 3 (three) times a day as needed for muscle spasms 025 Discontinued naltrexone (Depade) 50 MG tablet Take 50 mg by mouth in the morning and in the evening 2 TABS AM AND 2 TABS PM 025 Discontinued buPROPion XL (Wellbutrin XL) 150 MG 24 hr tablet Take 150 mg by mouth Daily Do not crush, chew, or split. 025 Discontinued Active Problems Problem Noted Date Diagnosed Date Anovulation 11/28/2023 Estimated Date of Delivery Comme nts Yes 04/23/2025 Based on Est. Da te of Conception Encounters Date Type Department Care Team Description 11/05/20[place] [address] Les Martinez DO Other iron deficiency anemia 10/22/2024 11:20 [place] [address] Les Martinez DO 13 weeks gestation of ([facility]); Second trimester ([facility]); Thyroid disease ; H/O gastric sleeve; H/O iron deficiency anemia; resulting from in vitro fertilization in first trimester ([facility]) 10/22/2024 Abstract [facility] [address] [place] [address] Kerrie Babcock MA 10/22/2024 Abstract [facility] [address] [facility] [place] [address] Kerrie Babcock [place] 10/22/2024 Abstract [facility] [address] [facility] [place] [address] Kerrie Babcock, [place] 10/21/2024 Travel 10/18/2024 Telephone [facility] [address] [facility] [place] [address] Les Martinez, DO 10/17/2024 Abstract [facility] [address] [place] [address] [place] [address] Les Martinez, DO 10/10/2024 Clinisync Result Encounter [facility] External Department Unsolicited Les Martinez, DO 09/26/2024 Telephone [facility] [address] [facility] [place] [address] Kerrie Babcock, [place] 09/20/2024 2:30 PM EDT Initial [facility] [address] [facility] [place] [address] GA: 9w2d 09/20/2024 2:00 PM EDT Ancillary Procedure [facility] [address] [facility] [place] [address] Missed menses 09/20/2024 Abstract [facility] [address] [facility] [place] [address] Les Martinez, DO 09/12/2024 Telephone [facility] [place] [facility] [address] [place] [phone] Ximena Padilla LPN LAB READ 08/22/2024 10:00 AM EDT Office Visit [facility] [place] [facility] [address] [place] [address] Darleen Sinclair MD Abnormal thyroid function test (Primary Dx); H/O gastric bypass; Nontoxic goiter ; Vitamin D deficiency 08/22/2024 Bamboo flowsheet [facility] [place] [facility] [address] [place] [address] Darleen Sinclair MD from Last 3 Months Immunizations Immunization Administration Dates Next Due Tdap 12/25/2022 Family History Medical History Relation Name Comments Diabetes Father Delbert nunez Hypertension Father Delbert nunez Thyroid disease Father Delbert nunez Obesity Mother Julieta nunez Skin cancer Mother Julieta nunez Thyroid disease Mother Julieta nunez Diabetes Paternal Grandfather Ayaan Easton Relation Name Status Comments Father Delbert nunez Alive Mother Julieta nunez Alive Paternal Grandfather Ayaan Easton Sister Alive Social History Tobacco Use Types Packs/Day Years Used Date Smoking Tobacco: Every Day Cigarettes 0.5 3 Smokeless Tobacco: Never Tobacco Cessation:Ready to Q uit: Not Asked; Counseling Given: Not Answered Alcohol Use Standard Drinks/Week Comments Not Currently [...] PM EDT Sexual Orientation Not on file Last Filed Vital Signs Vital Sign Reading Time Taken Comments Blood Pressure 110/62 10/22/2024 11:28 AM EDT Pulse 67 08/22/2024 10:04 AM EDT Temperature - - Respiratory Rate 16 08/22/2024 10:04 AM EDT Oxygen Saturation 99% 08/22/2024 10:04 AM EDT Inhaled Oxygen Concentration - - Weight 102 kg (224 lb) 10/22/2024 11:28 AM EDT Height 180.3 cm (5' 11 ) 08/22/2024 10:04 AM EDT Body Mass Index 31.24 08/22/2024 10:04 AM EDT Plan of Treatment Upcoming Encounters Date Type Department Care Team (Late st Contact Info) Description 11/20/2024 8:40 AM EDT Routine [facility] [address] [facility] [place] [phone] Les Martinez, DO [address] [facility] [place] [address] 02/20/2025 1:00 PM EST Office Visit [facility] [place] [facility] [address] [facility] [place] [phone] Les Martinez, DO [address] [facility] [place] [address] 08/21/2025 9:30 AM EDT Office Visit [facility] [address] [place] [address] Darleen Sinclair MD [address] [place] [address] Health Maintenance Due Date Last Done Comments Influenza Vaccine (#1) 2024 Goals Goal Patient Goal Type Associated Problems Recent Progress Patient-Stated? Author Reminders Care Plan OB Reminders No Open Scheduling, Background Procedures Procedure Name Priority Date/Time Associated Diagnosis Comments POCT URINALYSIS DIPSTICK Routine 10/22/2024 11:41 AM EDT 13 weeks gestation of ([facility]) Second trimester ([facility]) BOX TEST Routine 10/10/2024 11:18 AM EDT POCT URINALYSIS DIPSTICK Routine 09/20/2024 3:08 PM EDT Missed menses POCT , URINE Routine 09/20/2024 3:08 PM EDT Missed menses OB TRANSVAGINAL Routine 09/20/2024 2: 24 PM EDT Missed menses VITAMIN B1 Routine 08/27/2024 8:52 AM EDT H/O gastric bypass VITAMIN B12 Routine 08/27/2024 8:52 AM EDT H/O gastric bypass VITAMIN D 25 HYDROXY TOTAL Routine 08/27/2024 8:52 AM EDT H/O gastric bypass Vitamin D deficiency TSH Routine 08/27/2024 8:52 AM EDT Abnormal thyroid function test T4, FREE Routine 08/27/2024 8:52 AM EDT Abnormal thyroid function test T3, FREE Routine 08/27/2024 8:52 AM EDT Abnormal thyroid function test from Last 3 Months Results * POCT urinalysis dipstick manually resulted (10/22/2024 11:41 AM EDT) Only the most recent of2 resultswithin the time period is included. Color, UA Yellow Clarity, UA Clear Glucose, UA Negative Negative - 2000(110) ++++ mg/dL Bilirubin, UA Negative Negative - 4(70) +++ mg/dL Ketones, UA Negative Negative - 160(16) ++++ mg/dL Spec Grav, UA 1.010 1 - 1.03 Blood, UA Negative Negative - 50 Yehuda/mcL pH, UA 7.0 5 - 9 Protein, UA Negative Negative - 2000(20) ++++ mg/dL Urobilinogen, UA 1.0 0.2 - 12 mg/dL Leukocytes, UA Negative Negative - 500+++ Kourtney/mcL Nitrite, UA Negative Negative - Positive Urine 10/22/2024 11:4 1 AM EDT [employer] Juan DO POINT OF CARE TEST ENTER/EDIT OR DERABLES Final Result * BOX TEST (10/10/2024 11:18 AM EDT) BOX TEST SENT OUT [facility] BOX1 [employer] [facility] BOX2 10-10-24 [facility] 10/10/2024 11:1 8 AM EDT 10/10/2024 11:22 AM EDT Narrative [facility] - 10/10/2024 11:23 AM EDT [facility] [employer] Juan DO LAB BLOOD ORDERABLES Final Resul t [facility] * (ABNORMAL) POCT , urine manually resulted (09/20/2024 3:08 PM EDT) Preg Test, Ur Positive Negative Urine 09/20/2024 3:08 PM EDT us Les Juan DO POINT OF CARE TEST ENTER/EDIT OR DERABLES Final Result * US OB transvaginal (09/20/2024 2:24 PM EDT) Anatomical Region Laterality Modality Body Ultrasound 09/21/2024 8:28 AM EDT Narrative 09/21/2024 8:28 AM EDT EXAM: US OB TRANSVAGINAL HISTORY: Dating, IVF. COMPARISON: None available. TECHNIQUE: Two-dimensional transvaginal grayscale ultrasound imaging of the pelvis was performed. Color Doppler evaluation of the ovaries was also performed. FINDINGS: The uterus demonstrates a normal homogeneous echotexture. The cervix measures 4.0 cm in length and the cervical os is closed. The right ovary measures 2.7 x 2.1 x 2.5 cm and demonstrates a normal echotexture. There is normal color Doppler flow. There is a presumed corpus luteal cyst visualized. The left ovary measures 2.7 x 1.6 x 2.1 cm and demonstrates a normal echotexture. There is normal color Doppler flow. No fluid is present within the cul-de-sac. There is a single, live intrauterine gestation identified with a heart rate of 171 beats per minute and a crown-rump length measurement of 2.5 cm, correlating to a gestational age of 9 weeks 1 days (+/- 6 days). There is no subchorionic hemorrhage visualized. A yolk sac is visualized. IMPRESSION: 1. Single, live intrauterine gestation 9 weeks, 0 days by LMP. Today's ultrasound measurements correlate with a gestational age of 9 weeks 1 days (+/- 6 days). DARWIN by today's ultrasound is 04/24/2025. 2. Normal color Doppler evaluation of the bilateral ovaries. Interpreted by: Electronically signed by EDEL GARCIA II, MD, PHD at 21-Sep-2024 08:26:46 AM [facility] Procedure Note Edel Garcia MD - 09/21/2024 EXAM: US OB TRANSVAGINAL HISTORY: Dating, IVF. COMPARISON: None available. TECHNIQUE: Two-dimensional transvaginal grayscale ultrasound imaging ofthe pelvis was performed. Color Doppler evaluation of the ovaries was alsoperformed. FINDINGS: The uterus demonstrates a normal homogeneous echotexture. The cervixmeasures 4.0 cm in length and the cervical os is closed. The right ovary measures 2.7 x 2.1 x 2.5 cm and demonstrates a normalechotexture. There is normal color Doppler flow. There is a presumedcorpus luteal cyst visualized. The left ovary measures 2.7 x 1.6 x 2.1 cm and demonstrates a normalechotexture. There is normal color Doppler flow. No fluid is present within the cul-de-sac. There is a single, live intrauterine gestation identified with a fetalheart rate of 171 beats per minute and a crown-rump length measurement of2.5 cm, correlating to a gestational age of 9 weeks 1 days (+/- 6 days).There is no subchorionic hemorrhage visualized. A yolk sac isvisualized. IMPRESSION: 1. Single, live intrauterine gestation 9 weeks, 0 days by LMP. Today'sultrasound measurements correlate with a gestational age of 9 weeks 1 days(+/- 6 days). DARWIN by today's ultrasound is 04/24/2025. 2. Normal color Doppler evaluation of the bilateral ovaries. Interpreted by: Electronically signed by EDEL GARCIA II, MD, PHD [id number] 08:26:46 AM [facility] us Les Monsivaiso DO IMG OB US PROCEDURES Final Resul t * Vitamin D 25 hydroxy (08/27/2024 8:52 AM EDT) Blood Venous blood specimen / Unknown us Darleen Sinclair MD LAB BLOOD ORDERABLES Final Re sult EXTERNAL LAB * T3, free (08/27/2024 8:52 AM EDT) Blood Venous blood specimen / Unknown Darleen Sinclair MD LAB BLOOD ORDERABLES Final Re sult Performing Organization Address [facility] de Phone Number EXTERNAL LAB * TSH (08/27/2024 8:52 AM EDT) Blood Venous blood specimen / Unknown Darleen Sinclair MD LAB BLOOD ORDERABLES Final Re sult Performing Organization Address [facility] de Phone Number EXTERNAL LAB * T4, free (08/27/2024 8:52 AM EDT) Blood Venous blood specimen / Unknown Darleen Sinclair MD LAB BLOOD ORDERABLES Final Re sult Performing Organization Address [facility] de Phone Number EXTERNAL LAB * Thiamine (aka Vitamin B1) (08/27/2024 8:52 AM EDT) Blood Venous blood specimen / Unknown Darleen Sinclair MD LAB BLOOD ORDERABLES Final Re sult Performing Organization Address [facility] de Phone Number EXTERNAL LAB * Vitamin B12 (08/27/2024 8:52 AM EDT) Blood Venous blood specimen / Unknown Darleen Sinclair MD LAB BLOOD ORDERABLES Final Re sult Performing Organization Address [facility] de Phone Number EXTERNAL LAB from Last 3 Months Additional Health Concerns Active Problems Noted Date Diagnosed Date OB Reminders 10/22/2024 Insurance [facility] MEDICAID [place] Care Teams Concrete Stone Fabricator Relationship Specialty Start Date End Date Amanda Ford NP [address] [place] [address] PCP - General Family Medicine 01/17/23
--- OUTSIDE RECORDS SUMMARY | 2024-11-17 09:50 | XMS_ITS | Patient Health Record ---
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 Name Role Phone Jovani Jennifer Primary Care Provider Julieta Jefferson Unavailable [phone] Allergies No Known Allergies Reason For Referral No Information Medications Medication SIG (Take, Route, Frequency, Duration) Notes Start Date End Date Status lamoTRIgine 25 MG as directed Orally as directed; Duration: 30 day(s) 1 tab po daily x 2wks, then 1 BID x 2wks, then 2 AM and 1 PM x 2wks, then 2 BID x 2 wks, monitor rash/fever 02/05/2021 Not-Taking Docusate Sodium 100 MG 1 capsule as needed Orally Once a day Active LaMICtal 200 MG 1.5 tabs Orally hs Not-Taking Levothyroxine Sodium 50 MCG 1 tablet in the morning on an empty stomach Orally Once a day Active Ziprasidone HCl 40 MG 1 capsule with food Orally at bedtime 100-200 calories Not-Taking QUEtiapine Fumarate 25 MG 1 tablet at bedtime Orally Once a day Active Lansoprazole 30 MG 1 capsule before a meal Orally Once a day Active lamoTRIgine 200 MG 1 tablet Orally Once a day Active Cyclobenzaprine HCl 10 MG TAKE 1 TABLET BY MOUTH ONCE DAILY AT BEDTIME NEEDED FOR 30 DAYS; Duration: 30 Not-Taking Sertraline HCl 25 MG 1 tablet Orally Once a day; Duration: 90 days 09/25/2024 Active Strattera 40 MG 1 capsule in the morning Orally Once a day; Duration: 30 day(s) 01/25/2022 Not-Taking Xanax 0.5 MG 1 tablet Orally TID PRN F41.1 01/17/2023 Not-Taking ProFe 391.3 (180 Fe) MG 1 capsule Orally twice daily Active Social History Tobacco Use: Social History Observation Description Date Details (start date - stop date) Current Smoker NA - NA Tobacco Screen: Question Answer Notes Are you a: current smoker How often do you smoke cigarettes? every day How many cigarettes a day do you smoke? 6-10 Alcohol Screening: Question Answer Notes Did you have a drink containing alcohol in the p ast year? 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 Problem Anxiety state (053307541) Anxiety state, unspecified (F41.1) Active confirmed Problem Long-term current use of drug therapy (201049175) High risk medications (not anticoagulants) long-term use (Z79.899) Active confirmed Problem Bipolar affective disorder, currently manic, mild (433090697) Bipolar disorder, current episode manic without psychotic features, mild (F31.11) Active confirmed Vital Signs Heart Rate 84 /min 10/24/2024 Oximetry 98 % 10/24/2024 Blood pressure diastolic 68 mm Hg 10/24/2024 Height 71 in 10/24/2024 Blood pressure systolic 124 mm Hg 10/24/2024 Weight 218.2 lbs 10/24/2024 BMI 30.43 kg/m2 10/24/2024 Encounters Encounter Location Date Provider Diagnosis [facility] [address] [place] [address] 01/25/2024 [place] [address] [place] [address] 02/24/2024 [place] [address] [place] [address] 05/10/2024 [facility] Bipolar disorder, current episode manic without psychotic features, mild F31.11 and Anxiety state, unspecified F41.1 [place] [address] [place] [address] 05/24/2024 [facility] Bipolar disorder, current episode manic without psychotic features, mild F31.11 [facility] [address] [place] [address] 01/25/2024 Julieta Jefferson Bipolar disorder, current episode manic without psychotic features, mild F31.11 [facility] [address] [place] [address] 04/25/2024 Julieta Jefferson Bipolar disorder, current episode manic without psychotic features, mild F31.11 and Anxiety state, unspecified F41.1 [facility] [address] [place] [address] 08/24/2024 Jennifer Hahn Bipolar disorder, current episode manic without psychotic features, mild F31.11 and Anxiety state, unspecified F41.1 [facility] [address] [place] [address] 09/25/2024 Jennifer Hahn Bipolar disorder, current episode manic without psychotic features, mild F31.11 [facility] [address] [place] [address] 10/24/2024 Jennifer Hahn Bipolar disorder, current episode manic without psychotic features, mild F31.11 Assessments Encounter Date Diagnosis (ICD Code) Assessment Notes Treatment Notes Treatment Clinical Notes Section Notes 10/24/2024 Bipolar disorder, current episode manic without psychotic features, mild (ICD-10 - F31.11) Recommended treatment for Bipolar disorder includes FDA approved and OFF label medications: second generation antipsychotics and mood stabilizers. Discussed life threatening side effect of Lamotrigine. Pt is to monitor for new skin rashes or sensation of a sunburn or itchiness or redness, mouth sores or sores in mucus membranes, and call provider immediately and or go to ER, and stop the medication. Second generation antipsychotic medications can cause headache, drowsiness, agitation, dizziness, nausea, or extrapyramidal symptoms such as tremors, muscle spasms, slowness of movement or jerking of muscles. Stable The patient verbalizes understanding with all questions answered thoroughly and is in agreement with treatment plan. Continue current treatment. Call for problems . GOALS: . Maintain medication regimen _Improve mood stability _Improve anxiety control _Improve social and interpersonal functioning Patient/Guardian will call sooner if symptoms worsen. Patient understands to go to ER if needed if symptoms become severe. Crisis Intervention plan was discussed and agreed upon. Patient/Guardian will call 911 in case of emergency. Emergency contact information was provided to the patient/guardian. follow up 3 months Pharmacological management: . Alternative medication plans were discussed with the patient/guardian. All relevant side effects and potential adverse effects were discussed with the patient/guardian. Standard cautions and potential benefits were discussed. Patient/Guardian consented to the start/continuation of the treatment. 09/25/2024 Bipolar disorder, current episode manic without psychotic features, mild (ICD-10 - F31.11) Recommended treatment for Bipolar disorder includes FDA approved and OFF label medications: second generation antipsychotics and mood stabilizers. Discussed life threatening side effect of Lamotrigine. Pt is to monitor for new skin rashes or sensation of a sunburn or itchiness or redness, mouth sores or sores in mucus membranes, and call provider immediately and or go to ER, and stop the medication. Second generation antipsychotic medications can cause headache, drowsiness, agitation, dizziness, nausea, or extrapyramidal symptoms such as tremors, muscle spasms, slowness of movement or jerking of muscles. Stable The patient verbalizes understanding with all questions answered thoroughly and is in agreement with treatment plan. Continue current treatment with addition of sertraline. . Call for problems . GOALS: . Maintain medication regimen _Improve mood stability _Improve anxiety control _Improve social and interpersonal functioning Patient/Guardian will call sooner if symptoms worsen. Patient understands to go to ER if needed if symptoms become severe. Crisis Intervention plan was discussed and agreed upon. Patient/Guardian will call 911 in case of emergency. Emergency contact information was provided to the patient/guardian. follow up 1 month. Pharmacological management: . Alternative medication plans were discussed with the patient/guardian. All relevant side effects and potential adverse effects were discussed with the patient/guardian. Standard cautions and potential benefits were discussed. Patient/Guardian consented to the start/continuation of the treatment. 08/24/2024 Bipolar disorder, current episode manic without psychotic features, mild (ICD-10 - F31.11) Recommended treatment for Bipolar disorder includes FDA approved and OFF label medications: second generation antipsychotics and mood stabilizers. Discussed life threatening side effect of Lamotrigine. Pt is to monitor for new skin rashes or sensation of a sunburn or itchiness or redness, mouth sores or sores in mucus membranes, and call provider immediately and or go to ER, and stop the medication. Second generation antipsychotic medications can cause headache, drowsiness, agitation, dizziness, nausea, or extrapyramidal symptoms such as tremors, muscle spasms, slowness of movement or jerking of muscles. Stable The patient verbalizes understanding with all questions answered thoroughly and is in agreement with treatment plan. Continue current treatment. Call for problems . GOALS: . Maintain medication regimen _Improve mood stability _Improve anxiety control _Improve social and interpersonal functioning Patient/Guardian will call sooner if symptoms worsen. Patient understands to go to ER if needed if symptoms become severe. Crisis Intervention plan was discussed and agreed upon. Patient/Guardian will call 911 in case of emergency. Emergency contact information was provided to the patient/guardian. follow up 1 month Pharmacological management: . Alternative medication plans were discussed with the patient/guardian. All relevant side effects and potential adverse effects were discussed with the patient/guardian. Standard cautions and potential benefits were discussed. Patient/Guardian consented to the start/continuation of the treatment. 05/24/2024 Bipolar disorder, current episode manic without psychotic features, mild (ICD-10 - F31.11) 08/24/2024 Anxiety state, unspecified (ICD-10 - F41.1) 05/10/2024 Bipolar disorder, current episode manic without psychotic features, mild (ICD-10 - F31.11) 04/25/2024 Anxiety state, unspecified (ICD-10 - F41.1) 04/25/2024 Bipolar disorder, current episode manic without psychotic features, mild (ICD-10 - F31.11) cont current treatment transfer to [facility] . . Informed consent obtained: YES, we discussed the diagnosis/diagnoses , the treatment options, treatment(s) recommended vs. no treatment. We discussed risks and benefits of treatment options, treatment recommendations vs. no treatment. . . Discussed lifestyle/diet changes to help improve BMI. Recommend increasing activity, reducing portion sizes, limiting carbohydrates, increasing protein as appropriate. Discussed referral to airplane flight attendant supervisor if problem persists. . . Second generation antipsychotic medications can cause headache, drowsiness, agitation, dizziness, nausea, or extrapyramidal symptoms such as tremors, muscle spasms, slowness of movement or jerking of muscles. . . Currently at low risk for self harm. Denies ongoing feelings of hopelessness. Denies ongoing suicidal ideation, intent or plan in session. . 01/25/2024 Bipolar disorder, current episode manic without psychotic features, mild (ICD-10 - F31.11) . incrase naltrexine to 200mg daily for compulsive eating behaviors discussed flex dosing of queitpaine, will try 1 tab 2 hours before bedtime and repeat at bedtime. Can use up to 100mg at bedtime as needed . Informed consent obtained: YES, we discussed the diagnosis/diagnoses , the treatment options, treatment(s) recommended vs. no treatment. We discussed risks and benefits of treatment options, treatment recommendations vs. no treatment. . . Discussed lifestyle/diet changes to help improve BMI. Recommend increasing activity, reducing portion sizes, limiting carbohydrates, increasing protein as appropriate. Discussed referral to airplane flight attendant supervisor if problem persists. . . Continue current treatment plan, tolerating meds well, compliant; call for problems . GOALS: Maintain medication regimen Maintain mood stability Maintain anxiety stability Maintain social and interpersonal functioning Maintain attention and hyperactivity . . Pt is to continue current treatment plan Has good tolerability and compliance with medication Call for problems All questions and concerns discussed . . Currently at low risk for self harm. Denies ongoing feelings of hopelessness. Denies ongoing suicidal ideation, intent or plan in session. . 05/10/2024 Anxiety state, unspecified (ICD-10 - F41.1) Plan Of Treatment No Information Insurance Providers Payer Name Payer Address Payer Phone Subscriber Number Group Number Insured Name Patient Relationship to Insured Coverage Start Date Coverage End Date [facility] [address] [place] [address] [id number] MARIA EUGENIA GUZMAN Self - patient is the insured 3 [employer] [facility] [address] [place] [address] [id number] MARIA EUGENIA GUZMAN Self - patient is the insured 3 [facility] EZEKIEL ROSAS [address] [place] [phone] [id number] DEL CID, GUZMAN Self - patient is the insured 1 2 [facility] [employer] -termed 22 [phone] [id number] 1 MARIA EUGENIA GUZMAN Self - patient is the insured 1 3 [id number] after [employer]ter[employer] [address] [place] [address] [id number] MARIA EUGENIA GUZMAN Self - patient is the insured 1 3 Medical (General) History Medical History History ICD Code obesity bipolar hypothyroid Surgical History Surgery Date(Month/Year) cholecystectomy gastric SLEEVE 04/2020
--- OUTSIDE RECORDS SUMMARY | 2024-11-17 09:50 | XMS_ITS | Encounter Summary ---
Author Organization [facility] Address [address] [place] [address] Care Team Providers Care Bond Runner Name Role Phone MerylAmanda cervantes Nikole WEAVER NEEDLE LOOM Primary Care Provider Encounter Details Date Type Department Care Team (Late st Contact Info) Description 03/02/2024 Orders Only [facility] [address] [place] [id number] Yefri Converse, MA [address] [place] [address] Social History Tobacco Use Types Packs/Day Years [...] 8:40 AM EDT Routine [facility] [address] [place] [address] Les Martinez DO [address] [place] [address] 02/20/2025 1:00 PM EST Office Visit [facility] [address] [facility] [place] [address] Les Martinez DO [address] [facility] [place] [address] 08/21/2025 9:30 AM EDT Office Visit [facility] [address] [place] [address] Darleen Sinclair MD [address] [place] [address] documented as of this encounter Procedures Procedure Name Priority Date/Time Associated Diagnosis Comments PAP SMEAR Routine 02/20/2024 12:00 AM EST documented in this encounter Results * Pap Smear (02/20/2024 12:00 AM EST) Swab Cervical swab / Unknown us Les Martinez DO LAB CYTOLOGY ORDERABLES Final Re sult EXTERNAL LAB documented in this encounter Visit Diagnoses Not on filedocumented in this encounter Care Teams Bond Runner Relationship Specialty Start Date End Date Amanda Ford NP [address] [facility] [place] [address] PCP - General Family Medicine 01/17/23 documented as of this encounter
--- OUTSIDE RECORDS SUMMARY | 2024-11-17 09:50 | XMS_ITS | Encounter Summary ---
Author Organization [facility] Address [address] 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
--- OUTSIDE RECORDS SUMMARY | 2024-11-17 09:50 | XMS_ITS | CCD ---
Author Organization [facility] Care Team Providers Care Security Analyst Name Role Phone Robin Appiah Primary Care Provider MACKENZIE BRITO Referring Unavailable ROBIN APPIAH Primary Care Unavailable RASHARD OLIVERA Referring Unavailable ROBIN APPIAH Primary Care Unavailable RASHARD OLIVERA Referring Unavailable ROBIN APPIAH Primary Care Unavailable RASHARD OLIVERA Admitting Unavailable RASHARD OLIVERA Attending Unavailable ROBIN APPIAH Primary Care Unavailable ROBIN APPIAH Primary Care Unavailable ROBIN APPIAH Primary Care Physician [phone] Amanda Ford Unavailable MD Robin Appiah Primary Care Provider MELY Ford Attending Provider MELY Ford Primary Care Provider DO Jack Easton Emergency Provider [phone] MARYSOL Jett Emergency Provider [phone] MD Lashonda Farhad Admit Provider MD Lashonda Farhad Attending Provider [phone] MELY Ford Attending Provider SHARRON Jefferson Attending Provider Petr Lay Unavailable Romeo Santana Unavailable MELY Ford Primary Care Provider DO Romeo Santana Attending Provider Amanda Ford NP Primary Care Provider Unavailable Rohrbacher SECURITY INSTALLER, Amanda Primary Care Provider Romeo Santana DO Attending Provider Rosarioacher COATING MACHINE OPERATOR HELPER, Amanda A Primary Care Provider Unavailable Primary Care Provider Unavailabl e DAVID, SHELLY G Referring Unavailable Unavailable Primary Care Provider Unavailabl e SAÚL ENRIQUEZ Attending Unavailable Rohrbacher COATING MACHINE OPERATOR HELPER, Amanda A Primary Care Provider DAVID, SHELLY G Referring Unavailable DAVID, SHELLY G Attending Unavailable DAVID, SHELLY G Referring Unavailable ATTARAN, IGNACIO Attending Unavailable DAVID, SHELLY G Attending Unavailable SELF Referring Unavailable DUDZIAK, DANIEL Referring Unavailable DAVID, SHELLY G Referring Unavailable SELF Referring Unavailable ATTARAN, IGNACIO Attending Unavailable DUDZIAK, DANIEL Referring Unavailable ATTARAN, IGNACIO Referring Unavailable DUDZIAK, DANIEL Referring Unavailable MIKEY TORRES Attending Unav ailable DUDZIAK, DANIEL Referring Unavailable SELF Referring Unavailable DAVID, SHELLY G Attending Unavailable SELF Referring Unavailable DAVID, SHELLY G Attending Unavailable Romeo Santana DO Attending Unavailable Rohrbacher, Amanda Primary Care Unavailable Romeo Santana DO Admitting Unavailable Rohrbacher, Amanda Primary Care Unavailable Alan, Narda T Admitting Unavailable Alan, Narda T Attending Unavailable Rohrbacher, Amanda Primary Care Unavailable David, Shelly G Admitting Unavailable David, Shelly G Attending Unavailable Rohrbacher, Amanda Primary Care Unavailable David, Shelly G Admitting Unavailable David, Shelly G Attending Unavailable Rohrbacher, Amanda Primary Care Unavailable David, Shelly G Admitting Unavailable Rohrbacher, Amanda Primary Care Unavailable David, Shelly G Attending Unavailable Rohrbacher, Amanda Primary Care Unavailable JUAN, LES R Admitting Unavailable JUAN, LES R Attending Unavailable Rohrbacher SECURITY INSTALLER, Amanda Primary Care Provider Kassidy Arriaza DO Emergency Provider [phone] DARLEEN SINCLAIR Attending Unavailable DARLEEN ISNCLAIR Referring Unavailable LES MARTINEZ Attending Unavailable LES MARTINEZ Attending Unavailable LES MARTINEZ Attending Unavailable No Pcp, No Pcp Primary Care Provider UnavailRomeo Clemente Attending Unavailable Amanda Ford Primary Care Unavailable Romeo Santana Admitting Unavailable Amanda Ford Primary Care Unavailable Kassidy Arriaza Admitting Unavailable Kassidy Arriaza Attending Unavailable Romeo Santana Admitting Unavailable Romeo Santana Attending Unavailable Amanda Ford Primary Care Unavailable Allergies Allergy Classification Reported Allergen(s) Allergy Type Date of Onset Reaction(s) Facility (20 sources) Non-steroidal anti-inflammato ry agent Drug allergy Unknown [facility] Other (12 sources) Non-steroidal anti-inflammato ry agent; Translations: [NSAIDs] Drug Allergy 3 Unknown [facility] (1 source) ALLERGIES NOT ON FILE; Translations: [ALLERGIES NOT ON FILE] Propensity to adverse reactions (disorder) [facility] 3 Repository (2 sources) NSAIDs Propensity to adverse reactions to drug 5 [facility] (1 source) NSAIDs Drug allergy (disorder) 5 [facility] Repository Medications Current Medications Medication Drug Class(es) Dates Sig (Normalized) Sig (Original) acetaminophen 500 mg oral tablet (20 sources) Start: 12-06-2023 take 1 tablet by mouth every eight hours as needed acetaminophen (TYLENOL) 500 mg tablet Take 500 mg by mouth every 8 hours as needed for pain. 12/06/2023 Active Start: 12-06-2023 take 1 tablet by ashley every six hours as needed for pain Start: 11-28-2023 End: 01-17-2024 acetaminophen (Tylenol Extra Strength) Discontinued 1000 MG PO EVERY 8-10 HOURS as needed for pain November 28, 2023 12:00am January 17, 2024 12:03pm acetaminophen 500 mg / diphenhydrAMINE hydrochloride 25 mg oral tablet (4 sources) Histamine-1 Receptor Antagonist Start: 10-04-2019 take 2 tablets by mouth once daily at bedtime for sleep Tylenol Extra Strength PM oral tablet 2 tab(s), Oral, Once a day (at bedtime) for sleep, 60 tab(s), Refill(s) 2, [id number], 182, cm, 07/09/19 13:03:00 EDT, Height/Length Measured, 200.7, kg, 07/09/19 13:03:00 EDT, Weight Measured Start Date: 10/04/19 Status: Ordered acetaminophen 325 mg / oxyCODONE hydrochloride 5 mg oral tablet (2 sources) Opioid Agonist Start: 05-07-2020 End: 05-14-2020 take 1 tablet by mouth every six hours as needed for pain, then take 1 tablet by mouth as needed for pain oxyCODONE-acetamin ophen (PERCOCET) 5-325 MG per tablet Indications: Post-op pain Take 1 tablet by mouth every 6 hours as needed for Pain for up to 7 days. Intended supply: 3 days. Take lowest dose possible to manage pain 28 tablet 0 05/07/2020 05/14/2020 Active Start: 05-06-2020 oxyCODONE-acet aminophen (PERCOCET) 5-325 MG per tablet 1 tablet albuterol 0.833 mg/ml / ipratropium bromide 0.167 mg/ml inhalant solution (1 source) Anticholinergic, beta2-Adrenergic Agonist Start: 05-06-2020 ipratropium-albuterol (DUONEB) nebulizer solution 1 ampule ALPRAZolam 0.5 mg oral tablet (20 sources) Benzodiazepine Start: 06-17-2022 End: 09-20-2024 take 1 tablet by mouth twice daily as needed for anxiety Start: 06-10-2022 End: 06-03-2023 take 1 tablet by mouth once daily as needed for anxiety Alprazolam (Xanax) 0.5 mg Tablet Discontinued 0.5 MG PO Daily as needed for Anxiety June 10, 2022 1:00am June 03, 2023 9:04am Start: 01-30-2020 take 1-2 tablets by mouth every 30 days at bedtime as needed for anxiety alprazolam 0.5 mg Tab 1-2 tabs, Oral, Bedtime, PRN for anxiety, 30 day supply; DX: F41, anxiety, # 60 tab(s), Refills(s) 1, Pharmacy: [id number], 182, cm, 12/06/19 12:03:00 EDT, Height/Length Dosing, 200.7, kg, 11/28/19 9:08:00 EDT, Weight Dosing Start Date: 01/30/20 Status: Ordered Start: 10-08-2019 End: 04-10-2022 take 1 tablet by mouth three times daily as needed for anxiety Alprazolam (Xanax) 0.5 mg Tablet Discontinued 0.5 MG PO Three times daily as needed for Anxiety October 08, 2019 12:00am April 10, 2022 7:18pm benztropine mesylate 1 mg oral tablet (4 sources) Anticholinergic, Antihistamine Start: 01-30-2020 benztropine 1 mg Tab Refills(s) 0 Start Date: 01/30/20 Status: Ordered 12 hr buPROPion hydrochloride 150 mg extended release oral tablet (13 sources) Aminoketone Start: 04-26-2024 take 1 tablet by mouth once daily buPROPion SR (WELLBUTRIN SR) 150 mg 12 hr tablet Take 1 tablet by mouth once daily. 90 tablet 08/20/2024 Active End: 10-22-2024 take 1 tablet by mouth once daily buPROPion XL (Wellbutrin XL) 150 MG 24 hr tablet Take 150 mg by mouth Daily Do not crush, chew, or split. 10/22/2024 Discontinued busPIRone hydrochloride 15 mg oral tablet (20 sources) Start: 06-10-2022 End: 06-03-2023 take 1 tablet by mouth three times daily as needed Buspirone 15 mg tablet Discontinued 15 MG PO Three times daily June 10, 2022 1:00am June 03, 2023 9:04am TAKE 1 TABLET BY MOUTH THREE TIMES DAILY NEEDED FOR 30 DAYS Start: 04-10-2022 End: 10-22-2024 take 1 tablet by mouth twice daily Start: 04-10-2022 End: 06-10-2022 Buspirone Discontinued MG TA BLET April 10, 2022 1:00am June 10, 2022 6:28pm calcium chloride 0.0014 meq/ml / potassium chloride 0.004 meq/ml / sodium chloride 0.103 meq/ml / sodium lactate 0.028 meq/ml injectable solution (2 sources) Start: 05-06-2020 End: 05-06-2020 lactated ringers infusion docusate sodium 100 mg oral capsule (20 sources) Start: 04-16-2024 End: 04-26-2024 take 1 capsule by mouth twice daily as needed for constipation Start: 04-16-2024 End: 04-26-2024 take 1 capsule by mouth twice daily as needed for constipation Docusate Sodium (Stool Softener) 100 mg capsule Discontinued 0 .ROUTE .COMPLEX 90 April 16, 2024 8:58am April 26, 2024 8:57am TAKE 1 CAPSULE BY MOUTH TWICE DAILY NEEDED FOR CONSTIPATION Start: 06-17-2022 End: 04-16-2024 docusate sodium (Colace) 100 MG capsule 1 (one) time each day at the same time 06/17/2022 Active Start: 06-11-2022 End: 12-07-2023 take 1 capsule by mouth twice daily as needed for constipation Docusate Sodium (Colace) 100 mg capsule Discontinued 100 MG PO Twice daily as needed for Constipation 20 December 06, 2023 12:00am December 07, 2023 6:44am take 1 capsule by mouth once [place] Stool Softener 100 MG 1 capsule Orally Once a day for 3 days Active 0.6 ml enoxaparin sodium 100 mg/ml prefilled syringe (1 source) Low Molecular Weight Heparin Start: 05-07-2020 enoxaparin (LOVENOX) 60 MG/0.6ML injection Inject 0.6 mLs into the skin 2 times daily 28 Syringe 0 05/07/2020 Active 2 ml famotidine 10 mg/ml injection (1 source) Histamine-2 Receptor Antagonist Start: 05-06-2020 famotidine (PEPCID) injection 20 mg 1 ml heparin sodium, porcine 5000 unt/ml prefilled syringe (2 sources) Unfractionated Heparin, Anti-coagulant Start: 05-06-2020 End: 05-06-2020 heparin (porcine) injection 5,000 Units 1 ml HYDROmorphone hydrochloride 1 mg/ml cartridge (3 sources) Opioid Agonist Start: 05-06-2020 HYDROmorphone (DILAUDID) injection 1 mg Start: 05-06-2020 End: 05-06-2020 HYDROmorphone (DILAUDID) 1 M G/ML injection Start: 05-06-2020 End: 05-06-2020 HYDROmorphone (DILAUDID) inj ection 0.5 mg hydrOXYzine hydrochloride 50 mg oral tablet (4 sources) Antihistamine Start: 10-09-2018 take 1-2 tablets by mouth four times daily hydrOXYzine hydrochloride 50 mg oral tablet See Instructions, 1-2 tab(s) Oral QID, # 60 tab(s), Refills(s) 2, Pharmacy: [place] [id number] Start Date: 10/09/18 Status: Ordered lamoTRIgine 200 mg oral tablet (20 sources) Mood Stabilizer, Anti-epileptic Agent Start: 04-10-2022 Lamotrigine Active MG TABLET April 10, 2022 12:00am Start: 01-30-2020 lamotrigine 20 0 mg Tab 300 mg = 1.5 tab(s), Oral, Daily, # 45 tab(s), Refills(s) 5, Pharmacy: [facility], 182, cm, 12/06/19 12:03:00 EDT, Height/Length Dosing, 200.7, kg, 11/28/19 9:08:00 EDT, Weight Dosing Start Date: 01/30/20 Status: Ordered Start: 10-04-2018 End: 10-22-2024 take 1 tablet by mouth once daily in the morning LaMICtal 200 MG tablet 1.5 tabs Active levothyroxine sodium 0.05 mg oral tablet (20 sources) l-Thyroxine Start: 02-24-2024 End: 08-17-2025 take 1 tablet by mouth before mealtime levothyroxine (Synthroid, Levoxyl) 50 MCG tablet Indications: Nontoxic goiter Take 1 tablet (50 mcg) by mouth in the morning. Take before meals. 90 tablet 3 08/22/2024 08/17/2025 Active Start: 10-13-2023 End: 04-26-2024 take 1 capsule by mouth once daily in the morning Levothyroxine 50 mcg capsule Discontinued 50 MCG PO Every morning October 13, 2023 12:00am April 26, 2024 9:56am Start: 10-08-2019 End: 08-01-2021 take 1 tablet by mouth every other day Levothyroxine 175 mcg Tablet Discontinued 175 MCG PO every other day October 08, 2019 12:00am August 01, 2021 2:19pm 1 tablet on odd days Start: 10-08-2019 End: 08-01-2021 take 1.5 tablets by mouth every other day Levothyroxine 175 mcg Tablet Discontinued 262 MCG PO every other day October 08, 2019 12:00am August 01, 2021 2:19pm 1.5 tabs every other day on even days Start: 10-08-2019 End: 08-01-2021 take 1.5 tablets by mouth every other day Levothyroxine Discontinued 262 MCG PO every other day October 08, 2019 12:00am August 01, 2021 2:19pm 1.5 tabs every other day on even days Start: 09-03-2018 take 1 tablet by ashley th once daily levothyroxine 175 mcg (0.175 mg) Tab 175 microgram = 1 tab(s), Oral, Daily, # 30 tab(s), Refills(s) 0 Start Date: 09/03/18 Status: Ordered lidocaine 0.05 mg/mg medicated patch (20 sources) Antiarrhythmic, Amide Local Anesthetic Start: 02-24-2024 End: 04-26-2024 apply 1 dose transdermal route once daily Start: 02-24-2024 End: 02-24-2024 apply 1 dose topically once daily Lidocaine 5 % adhesive patch,medicated Discontinued 1 PATCH TOPICAL Daily February 24, 2024 1:00am February 24, 2024 9:54am leave on most painful area for up to 12 hrs Start: 10-24-2023 End: 01-17-2024 apply 1 dose transdermal route once daily Lidocaine 5 % adhesive patch,medicated Discontinued 0 .ROUTE .COMPLEX October 24, 2023 8:47am January 17, 2024 12:04pm APPLY 1 PATCH TOPICALLY ONCE DAILY. REMOVE AFTER 12 HOURS Start: 06-03-2023 End: 10-24-2023 apply 1 dose topically once daily as needed Lidocaine 5 % adhesive patch,medicated Discontinued 1 PATCH TOPICAL Daily as needed June 03, 2023 1:00am October 24, 2023 8:48am REMOVE AFTER 12 HOURS Start: 02-08-2022 Lidocaine 5 % 1 patch remove after 12 hours Externally Once a day for 30 day(s) PRN Jan, Active Lidocaine 5 % AP PLY 1 PATCH TOPICALLY ONCE DAILY. REMOVE AFTER 12 HOURS. for 30 Active lithium carbonate 450 mg extended release oral tablet (8 sources) Start: 03-17-2020 take 1 tablet by mouth once daily in the morning, then take 2 tablets by mouth once daily in the evening lithium 450 mg oral tablet, extended release See Instructions, 1 tab po qAM and 2 tabs qPM, # 90 tab(s), Refills(s) 2, Pharmacy: [id number], 182, cm, 12/06/19 12:03:00 EDT, Height/Length Dosing, 200.7, kg, 11/28/19 9:08:00 EDT, Weight Dosing Start Date: 03/17/20 Status: Ordered mupirocin 20 mg/ml topical cream (20 sources) RNA Synthetase Inhibitor Antibacterial Start: 06-10-2022 Start: 02-08-2022 Mupirocin Calc ium 2 % 1 application Externally Twice a day for 5 day(s) Jan, Active Start: 02-08-2022 Mupirocin Calc ium 2 % 1 application Externally Twice a day for 5 day(s) Jan, Active naltrexone hydrochloride 50 mg oral tablet (20 sources) Opioid Antagonist Start: 10-25-2023 End: 04-21-2024 naltrexone (Depade) 50 MG tablet every 12 (twelve) hours 10/25/2023 04/21/2024 Active Start: 06-03-2023 End: 10-22-2024 take 2 tablets by mouth twice daily naltrexone 50 mg tablet Take 2 tablets by mouth two times a day. 06/03/2023 Active Start: 06-03-2023 End: 04-23-2024 take 1 tablet by mouth twice daily Start: 06-03-2023 take 50 mg by mouth once daily Naltrexone Active 50 MG PO Daily June 03, 2023 1:00am take 1 tablet by ashley th every twenty-four hours Naltrexone HCl 50 MG 1 tablet Orally Once a day Active 2 ml ondansetron 2 mg/ml injection (1 source) Serotonin-3 Receptor Antagonist Start: 05-06-2020 ondansetron (ZOFRAN) injection 4 mg pantoprazole 40 mg extended release oral tablet (4 sources) Proton Pump Inhibitor Start: 09-03-2018 take 1 tablet by mouth once daily pantoprazole 40 mg Oral EC Tab 40 mg = 1 tab(s), Oral, Daily, # 30 tab(s), Refills(s) 0 Start Date: 09/03/18 Status: Ordered PNV Combo No.47-Iron-FA #1-DHA (PNV-DHA) 27 mg iron-1 mg -300 mg (5 sources) Start: 08-20-2024 take 1 capsule by mouth once daily PNV Combo No.47-Iron-FA #1-DHA (PNV-DHA) 27 mg iron-1 mg -300 mg Take 1 capsule by mouth once daily. 08/20/2024 Active polysaccharide iron complex 391 mg oral capsule (20 sources) Start: 04-23-2024 iron polysaccharides (ProFe) 391.3 (180 Fe) MG capsule Indications: Other iron deficiency anemia TAKE 1 CAPSULE BY MOUTH TWICE DAILY(MORNING AND BEFORE BED) 60 capsule 3 07/11/2024 Active Start: 12-07-2023 End: 04-23-2024 take 1 capsule by mouth once daily Polysaccharide Iron Complex (Pro Fe) 180 mg iron capsule Discontinued 180 MG PO Daily December 07, 2023 12:00am April 23, 2024 3:52pm take 2 capsules by m outh twice daily Polysaccharide Iron Complex (PRO FE) 180 mg iron cap Take 2 capsules by mouth two times a day. Active [id number] acid ( 19) 29 mg iron- 1 mg tablet,chewable (2 sources) [id number] acid ( 19) 29 mg iron- 1 mg tablet,chewable Chew 1 tablet and swallow in the morning. Active promethazine hydrochloride 25 mg oral tablet (8 sources) Phenothiazine Start: 05-07-19 take 1 tablet by mouth every six hours as needed for nausea promethazine (PHENERGAN) 25 MG tablet Take 1 tablet by mouth every 6 hours as needed for Nausea 30 tablet 0 05/07/2020 Active Start: 05-06-2020 End: 05-14-2020 take 1 tablet by mouth four times daily as needed for nausea promethazine (PHENERGAN) 25 MG tablet Take 1 tablet by mouth 4 times daily as needed for Nausea 20 tablet 0 05/07/2020 05/14/2020 Active Start: 05-06-2020 promethazine ( PHENERGAN) injection 12.5 mg Start: 03-28-2019 End: 05-07-2020 take 1 tablet by mouth every four hours as needed for nausea and vomiting promethazine (PHENERGAN) 25 MG tablet TAKE 1 TABLET BY MOUTH EVERY 4 HOURS NEEDED FOR NAUSEA AND VOMITING 0 03/28/2019 05/07/2020 Discontinued (REORDER) QUEtiapine 25 mg oral tablet (20 sources) Atypical Antipsychotic Start: 04-10-2022 take 1 tablet by mouth at bedtime Start: 04-10-2022 Quetiapine Act misti MG TABLET April 10, 2022 12:00am Start: 03-12-2020 take 2 tablets by mo [facility] at bedtime quetiapine 50 mg oral tablet 100 mg = 2 tab(s), Oral, Bedtime, # 60 tab(s), Refills(s) 5, Pharmacy: [id number], 182, cm, 12/06/19 12:03:00 EDT, Height/Length Dosing, 200.7, kg, 11/28/19 9:08:00 EDT, Weight Dosing Start Date: 03/12/20 Status: Ordered take 1 tablet by ashley once daily QUEtiapine (SEROQUEL XR) 50 MG extended release tablet Take 50 mg by mouth nightly 0 Active 72 hr scopolamine 0.0139 mg/hr transdermal system (2 sources) Anticholinergic Start: 05-06-2020 scopolamine (TRANSDERM-SCOP) transdermal patch 1 patch sertraline 25 mg oral tablet (4 sources) Serotonin Reuptake Inhibitor Start: 09-25-2024 take 1 tablet by mouth once daily sertraline (Zoloft) 25 MG tablet Take 25 mg by mouth 1 (one) time each day at the same time 09/25/2024 Active 3 ml sodium chloride 9 mg/ml injection (2 sources) Start: 05-06-2020 sodium chloride flush 0.9 % injection 10 mL Sprintec oral tablet (4 sources) Start: 05-25-2019 Sprintec oral tablet 1 tab(s), Oral, Daily, 28 tab(s), Refill(s) 0 Start Date: 05/25/19 Status: Ordered sulfamethoxazole 400 mg / trimethoprim 80 mg oral tablet (7 sources) Dihydrofolate Reductase Inhibitor Antibacterial, Sulfonamide Antimicrobial take 1 tablet by mouth every twenty-four hours Bactrim 400-80 MG 1 tablet Orally Once a day Active ziprasidone 80 mg oral capsule (20 sources) Atypical Antipsychotic Start: 03-12-2020 take 1 capsule by mouth twice daily at mealtime ziprasidone 80 mg Cap 80 mg = 1 cap(s), Oral, BID, with food, # 60 cap(s), Refills(s) 2, Pharmacy: [id number], 182, cm, 12/06/19 12:03:00 EDT, Height/Length Dosing, 200.7, kg, 11/28/19 9:08:00 EDT, Weight Dosing Start Date: 03/12/20 Status: Ordered Start: 10-08-2019 End: 08-01-2021 take 1 capsule by mouth twice daily Ziprasidone Hcl (Geodon) 60 mg Capsule Discontinued 60 MG PO Twice daily October 08, 2019 12:00am August 01, 2021 2:19pm take 2 capsules by m outh twice daily at mealtime ziprasidone (GEODON) 40 MG capsule Take 80 mg by mouth 2 times daily (with meals) 0 Active Completed/Discontinued Medications Medication Drug Class(es) Dates Sig (Normalized) Sig (Original) acetaminophen 325 mg / HYDROcodone bitartrate 5 mg oral tablet (20 sources) Opioid Agonist Start: 08-01-2021 End: 04-10-2022 take 1 tablet by mouth every eight hours as needed for pain Hydrocodone-Aceta minophen 5-325 mg tablet Discontinued 1 TAB PO Q8H as needed for pain 7 2 August 01, 2021 April 10, 2022 7:18pm atomoxetine 40 mg oral capsule (11 sources) Norepinephrine Reuptake Inhibitor Start: 01-25-2022 End: 10-22-2024 Strattera 40 MG capsule 1 (one) time each day at the same time. 01/25/2022 10/22/2024 Discontinued 30 ml bupivacaine hydrochloride 5 mg/ml injection (1 source) Amide Local Anesthetic Start: 05-06-2020 End: 05-06-2020 bupivacaine (PF) (MARCAINE) 0.5 % injection 200 mg Start: 05-06-2020 End: 05-06-2020 bupivacaine (PF) (MARCAINE) 0.5 % injection 200 mg ceFAZolin (ANCEF) 3 g in dextrose 5 % 100 mL IVPB (1 source) Start: 05-06-2020 End: 05-07-2020 ceFAZolin (ANCEF) 3 g in dextrose 5 % 100 mL IVPB cyclobenzaprine hydrochloride 10 mg oral tablet (20 sources) Muscle Relaxant Start: 06-10-2022 End: 11-28-2023 take 1 tablet by mouth at bedtime Cyclobenzaprine 10 mg tablet Discontinued 10 MG PO Bedtime June 10, 2022 1:00am November 28, 2023 3:55pm Start: 05-07-2020 End: 05-17-2020 take 1 tablet by mouth once daily as needed for muscle spasms cyclobenzaprine (FLEXERIL) 10 MG tablet Take 1 tablet by mouth nightly as needed for Muscle spasms 10 tablet 0 05/07/2020 05/17/2020 Active Start: 05-07-2020 take 1 tablet by ashley th twice daily as needed for muscle spasms cyclobenzaprine (FLEXERIL) 10 MG tablet Take 1 tablet by mouth 2 times daily as needed for Muscle spasms 20 tablet 0 05/07/2020 Active Start: 10-08-2019 End: 08-01-2021 take 1 tablet by mouth three times daily as needed for muscle spasms Cyclobenzaprine 10 mg tablet Discontinued 10 MG PO Three times daily as needed for Muscle Spasm October 08, 2019 12:00am August 01, 2021 2:19pm End: 10-22-2024 take 5 mg by mouth three times daily as needed for muscle spasms cyclobenzaprine (Flexeril) 10 MG tablet Take 5 mg by mouth 3 (three) times a day as needed for muscle spasms 10/22/2024 Discontinued diclofenac sodium 0.01 mg/mg topical gel (15 sources) Nonsteroidal Anti-inflammatory Drug Start: 11-28-2023 End: 01-17-2024 apply 1 g topically four times daily as needed for pain Diclofenac Sodium (Aleve (Diclofenac)) 1 % gel Discontinued 1 GM TOPICAL Four times daily as needed for pain November 28, 2023 12:00am January 17, 2024 12:03pm apply to single elbow, wrist or hand; for hand includes palm/fingers/back of hand Start: 03-30-2022 Diclofenac Sod ium 1 % 2 grams Externally Four times a day as needed for 30 day(s) Mar, Active doxycycline hyclate 100 mg oral tablet (20 sources) Tetracycline-class Drug Start: 08-01-2021 End: 04-10-2022 take 1 tablet by mouth twice daily Doxycycline Hyclate 100 mg tablet Discontinued 100 MG PO Twice daily August 01, 2021 12:00am April 10, 2022 7:18pm ergocalciferol 1.25 mg oral capsule (20 sources) Provitamin D2 Compound Start: 10-08-2019 End: 08-01-2021 Ergocalciferol (Vitamin D2) (Vitamin D2) 1,250 mcg (50,000 unit) capsule Discontinued [id number] UNIT PO every week October 08, 2019 12:00am August 01, 2021 2:19pm Takes on Tuesday Start: 05-25-2019 Vitamin D2 200 0 intl units oral capsule Refills(s) 0 Start Date: 05/25/19 Status: Ordered Start: 01-12-2019 End: 05-08-2020 take 1 capsule by mouth every week vitamin D (ERGOCALCIFEROL) 55660 units CAPS capsule Indications: Vitamin D deficiency Take 1 capsule by mouth once a week for 8 doses 8 capsule 0 01/12/2019 05/08/2020 Discontinued (Stop Taking at Discharge) End: 05-08-2020 Ergocalciferol (VITAMIN D2 P O) Take 50,000 capsules by mouth once a week 0 05/08/2020 Discontinued (Stop Taking at Discharge) Ergocalciferol ( VITAMIN D2 PO) Take 50,000 capsules by mouth once a week 0 Active Norgestimate-Ethinyl Estradiol (20 sources) Progestin, Estrogen Start: 10-08-2019 End: 08-01-2021 take 1 tablet by mouth once daily Norgestimate-Ethinyl Estradiol (Sprintec (28)) 0.25-35 mg-mcg tablet Discontinued 1 TAB PO Daily October 08, 2019 12:00am August 01, 2021 2:19pm Start: 10-08-2019 End: 08-01-2021 take 1 tablet by mouth once daily Norgestimate-Ethinyl Estradiol (Sprintec (28)) 0.25-35 mg-mcg tablet Discontinued 1 TAB PO Daily October 07, 2019 11:00pm August 01, 2021 1:19pm Start: 01-13-2019 take 1 tablet by ashley once daily SPRINTEC 28 0.25-35 MG-MCG per tablet TAKE 1 TABLET BY MOUTH ONCE DAILY 3 01/13/2019 Active 2 ml fentaNYL 0.05 mg/ml injection (1 source) Opioid Agonist Start: 05-06-2020 End: 05-06-2020 fentaNYL (SUBLIMAZE) injection 25 mcg ferrous sulfate 325 mg oral tablet (20 sources) Start: 01-30-2020 End: 10-22-2024 ferrous sulfate 325 (65 Fe) MG tablet 1 (one) time each day at the same time. 06/17/2022 10/22/2024 Discontinued gabapentin 300 mg oral capsule (1 source) Anti-epileptic Agent Start: 05-05-2020 End: 05-08-2020 take 1 capsule by mouth once daily, then take 1 capsule by mouth, then take 1 capsule by mouth gabapentin (NEURONTIN) 300 MG capsule Take 1 capsule by mouth daily for 2 days. Take one pill the night before and one the morning of surgery 2 capsule 0 05/05/2020 05/08/2020 Discontinued (Stop Taking at Discharge) iohexol (OMNIPAQUE 240) injection 30 mL (1 source) Start: 05-07-2020 End: 05-07-2020 iohexol (OMNIPAQUE 240) injection 30 mL 1 ml ketorolac tromethamine 15 mg/ml cartridge (1 source) Nonsteroidal Anti-inflammatory Drug, Cyclooxygenase Inhibitor Start: 05-07-2020 End: 05-07-2020 ketorolac (TORADOL) injection 15 mg Start: 05-07-2020 End: 05-07-2020 ketorolac (TORADOL) injectio n 15 mg lansoprazole 30 mg delayed release oral capsule (20 sources) Proton Pump Inhibitor Start: 10-08-2019 End: 08-07-2024 take 1 capsule by mouth once daily in the morning Lansoprazole 30 mg capsule,delayed release(DR/EC) Discontinued 30 MG PO Every morning November 28, 2023 12:00am February 10, 2024 11:58am letrozole 2.5 mg oral tablet (4 sources) Aromatase Inhibitor End: 09-20-2024 take 1 tablet by mouth once daily letrozole (Femara) 2.5 MG chemo tablet Take by mouth Daily. Take with or without food. 09/20/2024 Discontinued (Therapy completed) Lidocaine 5 % adhesive patch,medicated (3 sources) Start: 02-24-2024 End: 04-26-2024 apply 1 dose transdermal route once daily Lidocaine 5 % adhesive patch,medicated Discontinued 0 .ROUTE .COMPLEX February 24, 2024 8:53am April 26, 2024 8:57am APPLY 1 PATCH TOPICALLY ONCE DAILY. REMOVE AFTER 12 HOURS Start: 02-24-2024 apply 1 dose transde rmal route once daily Lidocaine 5 % adhesive patch,medicated Active 0 .ROUTE .COMPLEX February 24, 2024 8:53am APPLY 1 PATCH TOPICALLY ONCE DAILY. REMOVE AFTER 12 HOURS lurasidone hydrochloride 40 mg oral tablet (1 source) Atypical Antipsychotic End: 04-22-2020 take 1 tablet by mouth once daily lurasidone (LATUDA) 40 MG TABS tablet Take by mouth daily 0 04/22/2020 Discontinued (LIST CLEANUP) medroxyPROGESTERone acetate 10 mg oral tablet (20 sources) Progestin Start: 04-10-2022 End: 06-10-2022 Medroxyprogesterone (Provera) 10 mg tablet Discontinued 10 MG PO Daily 01 25April 10, 2022 1:00am June 10, 2022 6:28pm begin day 16 of cycle methylPREDNISolone acetate 80 mg/ml injectable suspension (20 sources) Corticosteroid Start: 10-11-2022 DEPO-Medrol Sep, 80 mg Start: 08-25-2022 methylPREDNISo lone 4 MG as directed Orally daily for 6 days August, Active Start: 02-08-2022 methylPREDNISo lone 4 MG as directed Orally daily for 6 days Jan, Not-Taking 2 ml midazolam 1 mg/ml injection (1 source) Benzodiazepine Start: 05-06-2020 End: 05-06-2020 midazolam PF (VERSED) injection 1 mg oxyCODONE hydrochloride 5 mg oral tablet (13 sources) Opioid Agonist Start: 12-09-2023 End: 12-20-2023 take 1 tablet by mouth at mealtime for pain Oxycodone 5 mg tablet Discontinued 5 MG PO .q6-8hrs as needed for severe pain 03 22December 09, 2023 December 20, 2023 10:47am Take with food. Do not fill until 12/10/23. Start: 12-06-2023 End: 12-07-2023 take 1 tablet by mouth every six hours as needed for pain Oxycodone 5 mg tablet Discontinued 5 MG PO Q6H as needed for Pain 20 5 December 06, 2023 December 07, 2023 7:13am risperiDONE 4 mg oral tablet (1 source) Atypical Antipsychotic Start: 09-19-2018 End: 04-22-2020 take 1 tablet by mouth in the morning risperiDONE (RISPERDAL) 4 MG tablet TAKE 1 2 (ONE HALF) TABLET BY MOUTH IN THE MORNING AND 1 TAB IN THE EVENING 2 09/19/2018 04/22/2020 Discontinued (LIST CLEANUP) traMADol hydrochloride 50 mg oral tablet (13 sources) Opioid Agonist Start: 12-07-2023 End: 01-17-2024 take 1 tablet by mouth every eight hours as needed for pain Tramadol 50 mg tablet Discontinued 50 MG PO Every 8 hours as needed for pain 15 7 December 15, 2023 3:44pm January 17, 2024 12:04pm trihexyphenidyl hydrochloride 2 mg oral tablet (1 source) Start: 03-28-2019 End: 04-22-2020 take 1 tablet by mouth twice daily trihexyphenidyl (ARTANE) 2 MG tablet TAKE 1 TABLET BY MOUTH TWICE DAILY FOR 30 DAYS 0 03/28/2019 04/22/2020 Discontinued (LIST CLEANUP) Problems Active Problems Problem Classification Problem Date Documented Da te Episodic/Chronic Abdominal pain (20 sources) Flank pain; Translations: [Unspecified abdominal pain] 07-03-2021 Episodic Administrative/social admission (2 sources) Treatment plan given; Translations: [Counseling, unspecified] 05-07-2024 Episodic Allergic reactions (3 sources) Acute urticaria; Translations: [Other urticaria] 04-26-2024 Episodic Anxiety disorders (20 sources) Mixed anxiety and depressive disorder; Translations: [Anxiety disorder, unspecified] 06-10-2022 Chronic Attention-deficit, conduct, and disruptive behavior disorders (20 sources) Attention deficit hyperactivity disorder, predominantly inattentive type; Translations: [Attention-deficit hyperactivity disorder, predominantly inattentive type] 06-03-2023 Chronic Attention-deficit, conduct, and disruptive behavior disorders (1 source) Attention-deficit hyperactivity disorder, predominantly inattentive type Chronic Attention-deficit, conduct, and disruptive behavior disorders (20 sources) Attention deficit hyperactivity disorder; Translations: [Attention-deficit hyperactivity disorder, predominantly inattentive type] Chronic Biliary tract disease (4 sources) Gallstone 09-03-2018 Episodic Contraceptive and procreative management (14 sources) 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 partner; Translations: [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] Onset: 4 03-08-2024 Episodic Deficiency and other anemia (17 sources) Anemia; Translations: [Anemia, unspecified] 06-10-2022 Episodic Deficiency and other anemia (20 sources) Iron deficiency anemia; Translations: [Iron deficiency anemia, unspecified] 06-10-2022 Episodic Deficiency and other anemia (4 sources) Anemia, unspecified; Translations: [Anemia, unspecified] 06-10-2022 Episodic Deficiency and other anemia (4 sources) Iron deficiency anemia, unspecified; Translations: [Iron deficiency anemia, unspecified] 06-10-2022 Episodic Deficiency and other anemia (2 sources) Other iron deficiency anemias Episodic Disorders usually diagnosed in infancy, childhood, or adolescence (20 sources) Non-organic primary nocturnal enuresis; Translations: [Enuresis not due to a substance or known physiological condition] Chronic Esophageal disorders (20 sources) Gastroesophageal reflux disease without esophagitis; Translations: [Gastro-esophageal reflux disease without esophagitis] Onset: 2 Resolved: 2 Chronic Female infertility (15 sources) Anovulation; Translations: [Female infertility associated with anovulation] Onset: 4 11-28-2023 Chronic Fever of unknown origin (14 sources) Fever; Translations: [Fever, unspecified] 06-08-2023 Episodic Genitourinary symptoms and ill-defined conditions (2 sources) Painful micturition, unspecified; Translations: [Other microscopic hematuria] Episodic Hemorrhage during ; abruptio placenta; placenta previa (2 sources) Bleeding from female genital tract during ; Translations: [Antepartum hemorrhage, unspecified, unspecified trimester] Onset: 5 10-18-2024 Episodic Immunizations and screening for infectious disease (2 sources) Patient encounter status; Translations: [Encounter for screening for infectious and parasitic diseases, unspecified] Onset: 4 03-11-2024 Episodic Menstrual disorders (20 sources) Menorrhagia; Translations: [Excessive and frequent menstruation with regular cycle] Chronic Mood disorders (20 sources) Bipolar disorder; Translations: [Bipolar affective disorder, currently depressed, mild] Onset: 9 12-05-2018 Chronic Nausea and vomiting (14 sources) Vomiting; Translations: [Vomiting, unspecified] 06-08-2023 Episodic Nutritional deficiencies (20 sources) Vitamin D deficiency; Translations: [Vitamin D deficiency, unspecified] Onset: 9 Resolved: 2 01-12-2019 Chronic Nutritional deficiencies (4 sources) Iron deficiency; Translations: [Vitamin A deficiency, unspecified] Onset: 2 Resolved: 2 Episodic Osteoarthritis (20 sources) Arthritis of shoulder region joint; Translations: [Primary osteoarthritis, unspecified shoulder] Chronic Other complications of (4 sources) Supervision of resulting from assisted reproductive technology, first trimester; Translations: [ resulting from assisted reproductive technology] Onset: 5 08-16-2024 Episodic Other complications of (2 sources) Conceived by in vitro fertilization; Translations: [Supervision of resulting from assisted reproductive technology, first trimester] 10-22-2024 Episodic Other connective tissue disease (4 sources) Plantar fasciitis 09-03-2018 Episodic Other connective tissue disease (1 source) Lateral epicondylitis, right elbow Episodic Other connective tissue disease (2 sources) Bursitis of right shoulder Episodic Other connective tissue disease (20 sources) Disorder of ligament, unspecified site; Translations: [Laxity of ligament] Episodic Other connective tissue disease (12 sources) Laxity of ligament; Translations: [Disorder of ligament, unspecified site] 10-12-2023 Episodic Comment on above: right shoulder Other connective tissue disease (4 sources) Bilateral plantar fasciitis; Translations: [Plantar fasciitis, bilateral] Onset: 9 12-05-2018 Other female genital disorders (20 sources) Abnormal uterine bleeding; Translations: [Other specified abnormal uterine and vaginal bleeding] 04-10-2022 Chronic Other gastrointestinal disorders (13 sources) Constipation; Translations: [Constipation, unspecified] 06-08-2023 Episodic Other gastrointestinal disorders (1 source) Constipation, unspecified; Translations: [Constipation, unspecified] 06-08-2023 Episodic Other gastrointestinal disorders (2 sources) History of bypass of stomach; 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] 08-22-2024 Episodic Other hematologic conditions (2 sources) H/O: anemia - iron deficient; Translations: [Personal history of diseases of the blood and blood-forming organs and certain disorders involving the immune mechanism] 10-22-2024 Episodic Other inflammatory condition of skin (1 source) Erythema intertrigo Episodic Other nervous system disorders (20 sources) Chronic pain; Translations: [Other chronic pain] 06-03-2023 Chronic Other nervous system disorders (2 sources) Other chronic pain; Translations: [Other chronic pain] Chronic Other nervous system disorders (10 sources) Carpal tunnel syndrome of right wrist; Translations: [Carpal tunnel syndrome, right upper limb] 11-01-2023 Chronic Other nervous system disorders (20 sources) Carpal tunnel syndrome, right upper limb; Translations: [Carpal tunnel syndrome] Onset: 11-01-2023 Chronic Other nervous system disorders (1 source) Postoperative pain ; Translations: [Post-op pain] Episodic Other nervous system disorders (12 sources) Numbness of hand; Translations: [Anesthesia of skin] 10-13-2023 Episodic Other nervous system disorders (13 sources) Anesthesia of skin; Translations: [Disturbance of skin sensation] 10-13-2023 Episodic Other non-traumatic joint disorders (16 sources) Derangement of right shoulder joint; Translations: [Other specific joint derangements of right shoulder, not elsewhere classified] Chronic Other non-traumatic joint disorders (1 source) Other specific joint derangements of right shoulder, not elsewhere classified Chronic Other non-traumatic joint disorders (3 sources) Pain in right shoulder Episodic Other non-traumatic joint disorders (20 sources) Other instability, unspecified shoulder; Translations: [Multidirectional instability of glenohumeral joint] Episodic Other non-traumatic joint disorders (20 sources) Other instability, right shoulder; Translations: [Other joint derangement, not elsewhere classified, shoulder region] Episodic Other non-traumatic joint disorders (12 sources) Instability of right shoulder joint; Translations: [Other instability, right shoulder] 10-12-2023 Episodic Other nutritional; endocrine; and metabolic disorders (8 sources) Body mass index 40+ - severely obese; Translations: [Morbid obesity with BMI of 50.0-59.9, adult] Onset: 9 Resolved: 0 04-27-2019 Chronic Other nutritional; endocrine; and metabolic disorders (4 sources) Morbid obesity 09-03-2018 Chronic Other and delivery including normal (6 sources) Early stage of ; Translations: [Encounter for supervision of normal , unspecified, unspecified trimester] Onset: 5 09-03-2024 Episodic Other screening for suspected conditions (not mental disorders or infectious disease) (2 sources) Thyroid function tests abnormal; Translations: [Abnormal results of thyroid function studies] 08-22-2024 Episodic Other skin disorders (1 source) Follicular disorder, unspecified Episodic Residual codes; unclassified (20 sources) Obstructive sleep apnea syndrome; Translations: [Obstructive sleep apnea (adult) (pediatric)] 06-03-2023 Chronic Comment on above: patient denies. 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]; Translations: [Personal history of surgery to other organs] 06-08-2023 Episodic Residual codes; unclassified (7 sources) History of arthroscopic procedure on shoulder; Translations: [Other specified postprocedural states] 12-06-2023 Episodic Residual codes; unclassified (1 source) Gestation period, 9 weeks; Translations: [9 weeks gestation of ] 09-20-2024 Episodic Residual codes; unclassified (2 sources) Gestation period, 13 weeks; Translations: [13 weeks gestation of ] 10-22-2024 Episodic Skin and subcutaneous tissue infections (20 sources) Abscess; Translations: [Cutaneous abscess, unspecified] 08-01-2021 Episodic Substance-related disorders (4 sources) Marijuana user; Translations: [Marijuana use] Onset: 9 12-05-2018 Thyroid disorders (20 sources) Hypothyroidism; Translations: [Acquired hypothyroidism] Onset: 9 Resolved: 2 12-05-2018 Chronic Thyroid disorders (2 sources) Disorder of thyroid gland; Translations: [Disorder of thyroid, unspecified] 10-22-2024 Episodic Unclassified (2 sources) History of sleeve gastrectomy; Translations: [Status post laparoscopic sleeve gastrectomy] Onset: 1 05-06-2020 Unclassified (5 sources) Patient encounter status; Translations: [Pre-op testing] 09-03-2018 Unclassified (1 source) 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) 08-20-2024 Unclassified (2 sources) OB Reminders Onset: 5 10-22-2024 Past or Other Problems Problem Classification Problem Date Documented Date Episodic/Chronic Residual codes; unclassified (19 sources) Other specified postprocedural states; Translations: [Other postprocedural status] Onset: 07-16-2021 Resolved: 07-16-2021 Episodic Screening and history of mental health and substance abuse codes (1 source) Personal history of nicotine dependence Onset: 07-16-2021 Resolved: 07-16-2021 Episodic Sprains and strains (20 sources) Strain of unspecified muscle, fascia and tendon at shoulder and upper arm level, right arm, initial encounter; Translations: [Strain of other muscles, fascia and tendons at shoulder and upper arm level, right arm, initial encounter] Onset: 12-07-2023 Episodic NEGATED: Highlighted row has been ruled out!Unclassified (1 source) No known active problems 08-20-2024 Results Test Name Value Interpretation Reference Range Facility Ultrasound - Officeon 2024 Radiology Study observation (narrative) [facility] Urinalysis macro (dipstick) panel (U)on 10-22-2024 Bilirubin, UA Negative Negative - 4(70) +++ mg/dL [facility] Blood, UA Negative Negative - 50 Yehuda/mcL [facility] Clarity, UA Clear [facility] Color, UA Yellow [facility] Glucose, UA Negative Negative - 2000(110) ++++ mg/dL [facility] Interpretation and review of laboratory results Normal [facility] Ketones, UA Negative Negative - 160(16) ++++ mg/dL [facility] Leukocytes, UA Negative Negative - 500+++ Kourtney/mcL [facility] Nitrite, UA Negative Negative - Positive [facility] pH, UA 7 5 - 9 [facility] Protein, UA Negative Negative - 2000(20) ++++ mg/dL [facility] Spec Grav, UA 1.01 1 - 1.03 [facility] Urobilinogen, UA 1.0 0.2 - 12 mg/dL [facility] Appearance of UrineOrdered B y: Kassidy Arriaza on 10-18-2024 Appearance (U) Clear Normal Clear [facility] Comment on above: Order Comment: Name Collection Type:: Clean-Voided Midstream Performed By: #### U A, CUU #### [facility] [address] [place] [address] Bilirubin Test strip Ql (U)O rdered By: Kassidy Brown on 10-18-2024 Bilirubin Ql (U) Negative Negative [facility] Chlamydia/GC Amplificationon 10-18-2024 Chlamydia Trachomotis, AC Negative Normal Negative [facility] Comment on above: Order Comment: SOURC E OF SPECIMEN: Genital Performed By: #### G CCHLAMAMP #### [facility] , #### CUGEN #### [facility] [address] [place] [address] Neisseria Gonorrhoeae, AC Negative Normal Negative [facility] Comment on above: Order Comment: SOURC E OF SPECIMEN: Genital Result Comment: Perf ormed at: =G - [facility] [address] [id number] Adding Machine Servicer: Dagmar Love MD, Phone: [phone] PERFORMED BY: [place] [address] PATHOLOGIST MATERIALS PLANNING MANAGER DAMIÁN DOSHI M.D. Performed By: #### G CCHLAMAMP #### [facility] , #### CUGEN #### [address] Color of Urine by AutoOrdere d By: Kassidy Brown on 10-18-2024 Color (U) Colorless Normal [facility] Comment on above: Order Comment: Name Collection Type:: Clean-Voided Midstream Performed By: #### U A, CUU #### [facility] [address] [place] [address] [place] Genital Cultureon 10-18-2024 Genital Culture Genital Results Light Normal Urogenital Damián 2 Days No More GC Specimen not tested for Neisseria gonorrheae PERFORMED BY: [place] [address] PATHOLOGIST MATERIALS PLANNING MANAGER DAMIÁN DOSHI M.D. Normal [facility] Comment on above: Performed By: #### G CCHLAMAMP #### [facility] , #### CUGEN #### [address] Glucose [Mass/volume] in Uri ne by Test stripOrdered By: Kassidy Arriaza on 10-18-2024 Glucose Test strip (U) [Mass/Vol] Normal mg/dL Normal [facility] Hemoglobin Test strip Ql (U) Ordered By: Kassidy Arriaza on 10-18-2024 Hemoglobin Ql (U) Negative Negative [facility] Ketones [Presence] in Urine by Test stripOrdered By: Kassidy Arriaza on 10-18-2024 Ketones Ql (U) Trace Normal Negative [facility] Comment on above: Order Comment: Name Collection Type:: Clean-Voided Midstream Performed By: #### U A, CUU #### [facility] [address] [place] [address] [place] Leukocyte esterase [Presence ] in Urine by Test stripOrdered By: Kassidy Arriaza on 10-18-2024 Leukocyte esterase Test strip Ql (U) Negative Normal Negative [facility] Comment on above: Order Comment: Name Collection Type:: Clean-Voided Midstream Performed By: #### U A, CUU #### [facility] [address] [place] [address] [place] Nitrite Test strip Ql (U)Ord ered By: Kassidy Arriaza on 10-18-2024 Nitrite Ql (U) Negative Negative [facility] Protein Test strip (U) [Mass /Vol]Ordered By: Kassidy Arriaza on 10-18-2024 Protein (U) [Mass/Vol] Negative Negative [facility] Specific gravity Test strip (U) [Rel density]Ordered By: Kassidy Arriaza on 10-18-2024 Specific gravity (U) [Rel density] 1.007 1.001-1.030 [facility] US OB <= 14 weeks fetuson US OB <= 14 weeks fetus [facility] [place] [address] Ultrasound Report Signed Patient: Jaz Sanders MR#: [id number] : 1995 Acct:[id number] Age/Sex: 29 / F ADM Date: 10/18/24 Loc: ER Room: Type: [facility] ER Attending Dr: Ordering Provider: Kassidy Arriaza DO Date of Service: 10/18/24 US/US OB <= 14 weeks fetus: OB/Uterine Contractions Copies to: Kassidy Arriaza DO OB ultrasound. Reason for exam:1 episode of vaginal spotting this morning. Comparison:None Technique: Transabdominal imaging of the gravid uterus was obtained. Findings: Single live intrauterine 13 weeks 1 day by CRL, DARWIN 04/24/2025. heart rate 160 bpm. Placenta is posterior in location without focal abnormality. No free fluid is seen. Ovaries not visualized. US/US OB <= 14 weeks fetus Impression: Single live intrauterine 13 weeks 1 day by CRL, DARWIN 04/24/2025. No acute abnormality is seen. Impression dictated by: Sravan Dickinson Jr., DTracy 10/18/2024 2:21 PM Dictation Location: [place] [address] Tech: Natalie Haji Transcribed By: MAITE 10/18/24 1421 Dictated By: Sravan Dickinson Jr, DO 10/18/24 1419 Signed By: 10/18/24 1421 Normal [facility] Unlisted Lab Teston 10-19-19 [facility] Urinalysison 10-18-2024 Bilirubin,Urine Negative Normal Negative [facility] Comment on above: Order Comment: Name Collection Type:: Clean-Voided Midstream Performed By: #### U A, CUU #### [address] Glucose Ql (U) Normal Normal Normal [facility] Comment on above: Order Comment: Name Collection Type:: Clean-Voided Midstream Performed By: #### U A, CUU #### [place] [address] [place] Nitrite,Urine Negative Normal Negative [facility] Comment on above: Order Comment: Name Collection Type:: Clean-Voided Midstream Performed By: #### U A, CUU #### [place] [address] [place] Occult Blood,Urine Negative Normal Negative [facility] Comment on above: Order Comment: Name Collection Type:: Clean-Voided Midstream Result Comment: PERF ORMED BY: [place] [address] PATHOLOGIST MATERIALS PLANNING MANAGER DAMIÁN DOSHI M.D. Performed By: #### U A, CUU #### [address] Protein,Urine Negative Normal Negative [facility] Comment on above: Order Comment: Name Collection Type:: Clean-Voided Midstream Performed By: #### U A, CUU #### [address] Specificy [place],Urine 1.007 Normal 1.001-1.030 [facility] Comment on above: Order Comment: Name Collection Type:: Clean-Voided Midstream Performed By: #### U A, CUU #### [place] [address] [place] Urobilinogen,Urine Normal Normal Normal [facility] Comment on above: Order Comment: Name Collection Type:: Clean-Voided Midstream Performed By: #### U A, CUU #### [address] Urine Cultureon 10-18-2024 Bacteria identified Cx Nom (U) <9,000 colonies/ml mixed bacterial skin contaminants 2 Days PERFORMED BY: [facility] [address] [place] [id number] PATHOLOGIST MATERIALS PLANNING MANAGER DAMIÁN DOSHI M.D. Normal [facility] Comment on above: Performed By: #### U A, CUU #### [facility] [address] [place] [id number] [facility] Urobilinogen Test strip (U) [Mass/Vol]Ordered By: Kassidy Arriaza on 10-18-2024 Urobilinogen (U) [Mass/Vol] Normal mg/dL Normal [facility] pH of Urine by Test stripOrd ered By: Kassidy Arriaza on 10-18-2024 pH (U) 7.0 [pH] Normal 5.0-9.0 [facility] Comment on above: Order Comment: Name Collection Type:: Clean-Voided Midstream Performed By: #### U A, CUU #### [facility] [address] [id number] [facility] Unlisted Lab Teston 10-17-19 [employer] BOX TESTon 10-10-2024 BOX TEST SENT OUT [employer] [facility]ful [address]OX[address] [employer] [facility] BOX2 10-10-24 [facility] Coding Summaryon 10-02-2024 Coding Summary HTMLBase 64 QtrgezohJRj9cHw+PGhlYWQ +RY1UYDAfS74qjDGprE2yV4 NMTElOSywgQVBQTElOSyIgb iFuLM3snQIeKOEs IC8+FM3aDGRwHjxlwVMfe0U 0mVV5A15ifc7hUXeutKJ9ZX EnItXllvizt9swdNa3MZiuT mluOyBt LSKjuY57ADS0nU33Xb74uJI ogUJhq0ikkBy7XmMlCMFpLE D9hRimDTgtq2WiSOTwV06vk SDdt0O9 RFSrmOsaqPLvTwYemLI6hG4 tLEhelurnh5jzzygjLed4cd 61mRMnq2O9cYH2Z4CvzvJ5Y GJvbGQg RfjdeUAJjG1apariu0pmsnh iDjDfWLMmKHv1YCc3PBJhjC dkHkSoSJ49PAU2LUQmhwReI 2FsLWFs ySyyRjE9h4S5Db1HP1FEDba sK2ACCOMFGLgfmLF+PC90cj 55Y5UzDbgoMpl0VOCePLY1h OS8eM4h HBOiQHodt2P4pTP1R5UxnlH gmy4du1wmMXIsVIroC23ujD Rym7A2PODbqTG1AYQxiUszQ iBzaG93 Oyc+ISSunYomp2PfHhlug5d gf0ppeZu4KoygBVEnyiWbbH zvKCK7l0FvLp0dANNrjNB4y SE0dC0c PpUxInD2TGwqE830KdHycWF hMqoyX16pX4OzqMW+PHRyPj v8OEPomZegPR5yY5YwNPQlz mctbGVm iExhUV3tKVHmntvyBGDcvM6 yLDUxT2p7VuZfBjW5VBcsM3 UyLURgvzwtBf08uS0zAzSeE kT5FSro H9WelrZ3ITUfdDHzISisFAI 3E11vi3J6PGYpGLQzWMY4oX L2tN5ucVebeymuzJUqiBvkn mVydGlj CRagGGuhK313YHTzfDxoHjB vZGluZyBEYXRlOiAgMDYvMT cvMjAyNTwvdGQ+TJAdZZK7k WxlPSAn sAMkDXihVw0ttJvfbAemZF5 hZOXchgtiTPCohP1bVTGtaA OwpRicTO5uRTQasffdy476P iAxMHB0 NXDtcXMnS2JcfP3gRgKfQNU qKEZhZ8TfqGDqFZjfS610GP gxKzC0VBOfmgNnK7UmQLFif WduOiB0 m1U8Tx5Uj5CtlzseQ2SieOD xHiQtKcwdBRv5G5ZdPknxrT I+AU80MWRiUB01PQn2SPT6m WxlPSdi GYUrM5DjcK0gOuHjHOZzLFC kOyc+PHRhYmxlIHdpZHRoPS xsDJClIsSklAxbTS3sQu2vB GVyLWNv kDoibNWuReZif6wpDYQuYYt bBA1bqMplX6BdtWE3NHFik1 l4Sl65C26zV8BizDT+PGNvb QL6uGN3 rU7yLjXpXbI1PPosQ005CrE uiANbWejbl7ajo0axfZi6Dv G4QREsywUraNxdWOM5o9OtM f31B32b IHdpZHRoPSIxNSUiIHZhbGl vmd1sxN7yCk9+DNZejZU4hB S8iR2fMnBvKxD2HNowZ631I nRvcCIv Rcpzq6jqx7dsaDp9DuYjGYK isbPpfWwsHED7q6ScEu16L7 McqRscl3UzBpl9hu18pJIbh 8N2bRI5 X8LmYVHnnfaraYRwgMjbMX4 uLKErvbbeSJVqrR4cCPOuN6 q7JdZlUlK7JQuwS1LthhV8F GJvbGQg IROdvYYWmX3estmqa6zkcsw nZnFqUCQgRDm6CEu2TTAchG fhMyDwMFC4JkY5GJM4tQZde O5ggDis pzdfsU4jMfa+KAU8tQUywFI KAH0dSyxvzHF+IJJoKRJ1wL msHSgxRDYyxI0fYGAvM6u8I iAwLjA1 TBgsM6WizpD7ACZfuUBrYHP zuESRfG6elrlps2pqxppmTq OcNWOfRYx1DJm2DPPalFeqQ iBsZWZ0 XfP1JQA2zZUobY6cbOerqjx szQ8dGaw+YqkslKpgSPG7HV o7V2MfWba4CUGnnWtcLN6rf GFkZGlu Ia8fuQweoKnuZP4sBCMrsup lj520KjGkx3dlGQOjyHXuXU vlYWB6Q67pd0C6OLApNQNhA UL1jGR4 iS3unKampkuvtXEamIcwhbQ lrEpzHVavOChzR497VZHftX agStBzHNz2P9SfAks8JDNzw AafJC0f tXAyWVhwGv8xhPhuqHoiHZ1 lXMYroerbm474KpXyu2zlJL YcgKArXOjoFHT1E33ty5J0J CMwMDAw NLD7sET1lC6vpMoqwnfarBB mdDsgdmVydGljYWwtYWxpZ2 61LPQojRgmTbWywHw0T6NpR uz3RZLq wJqoQP3tjVFpOPblOr0vwYy ieWocGY0yYUVsyootc142Qa Asc0irOJJhaROgQXhxUOC7P 38wt2X8 HBDxYZBvVEA7zMU4uP9emHu nbjogbGVmdDsgdmVydGljYW pyABwzA441QLGyuDbaPcYuf GllbnQg RXxvKWa6M0ChDvvynBW+PC9 2IECaAI03sKXhfSHib1ydzL l9ZuWvNHUrECQ8zAweDBldk 3JkZXIt E53gsSKnw8Z3TPOyjPuigCU yVhNsgIM8kE7jEIrblxsvv9 natqwvKtncz8gmil56eR19A 29sIHdp ZHRoPSIzMCUiIHZhbGlnbj0 adA3kCr7+LAUqxEO3gVD5zI 0iKWZiJdW9OMkxT779AwNwe CIvPjxj e2unu5lazWw0RsN2CXGsnpH igEdrZOH9u0SyJu92B78bJR dpZHRoPSIyMCUiIHZhbGlnb c5fgB0j Ii8+PWRuzWK0nIJ6mD6eRhX dHdR8KJoyI493XwUouJYaHo xkN94aU8IygAH+GTXyAky8R CBzdHls UQ1ckKEnNCmhPj2yIYJ3AyH cKiHqDGvoF8RtLJGwyazmxu ynuDJ0ASIdJGBtgM69Jw0hr DogMTBw jSRSsA7sjcjev9fyrtjgZbU aXPTiFHv3OCf1DWTnzQpmPq MtJRE5GbA4VOS8jDVffY1el Glnbjog nW2sQ0NiLPTjfsueVs11gA5 iHfBpZuR6JYujZla+TUNDQU 5OLCBIRUFUSEVSIEVMSVpBQ kVUSDwv dGQ+RKLfOVT7kRxsPMzbCOI esW0bHESrA0w3YzZsVuU4QC wxM5LxXURewrziDz80dD1sC iAwLjA1 FHtvB3UltgC5ZFIfwKVuLKh tJLH5T29st3Q3EMMoEPFpXF K7tHY3zE2ycSdbesmokDSkj DsgdmVy jWdiSSszGBreX069UZEmnVe lJyMaRpR0VuM3KMD6C8KuYr r6JNKpzLmyIU3qoDUbEJisV o8qqKhm rJgrJS6sUCZipbhwUBCfaV9 lLBIjuXGmaYnuKK8zMQVzlq xel676PqWeLVC2BTMtvYRrL 1EhrX5t WcEqAFNoTPLeN0RfmSCjYCl gD740ZWveNmH2ARWokfMuQ5 VzOTYueTrhRkJ0x2F9Fp3fE SBZZWFy czwvdGQ+YOFiOHQ6oCvcSUp wDWNqdM9oDBNxH8o9ZhKpQp A2URicF1DfONIfbvqeJq82a S0jVqZd ZrN8RBpkH8YzguQ8RZPsuGX dSUqkULC1D45vy0G1PIDqLS FqJJA8eYU4xK3zpTlftlyrw GVmdDsg llEsqZglYEivJVmcY027BRK vcDsnPkZFTUFMRTwvdGQ+PH PdDGM8nDrmPWujGJVwsM9vP DPdD6p2 PoDoFuE6DYhmF0PdBDHejzd ePj12nW9oSiMxOaM6CLaeP5 JjgcD6NJEkaTBxVIgzXEL0F 62du1P9 MFYfWDBhSAU1kHB9iX4etBe nbjogbGVmdDsgdmVydGljYW jeVYgkB165GETfgJsqMr9YM J51LH35 E8FuPlqnlQZswYS+PHRhYmx lIHdpZHRoPScxMDAlJyBzdH alON8iDp0sMMYmLFBgiMwwv HNlOiBj h1hgDXSgNCxqZK0nxXhyH7C flSE5ISGwh6o7Sn66N01pD1 JvdXA+PDOfxJU4yWR2pD1mW zAlIiB2 OGqgK070DtIssQHzKtpqy7s sy6yonSw9TrHpJXAtoyTjcB eqULP5r3OcYp11H64cBEdsD HRoPSIy GWTcAOUbiTljur4ytS3tMz0 +FPTwfMB8nNJ8bN9aQaLfSx X0PPpqR593NdMeeVQwRxrmZ 64dN9Kq dXA+GIBuJsp8MWNfsZcrZJ5 icHAdXOffYd7pCHW5YlBoDt DaMRudE3XiFIKzkoacqnvtz FV6FVGw DFNpsH01Tr5bbRgjFg5wZXB wUWG5QMWzyXWtJ2LrzT4cHc FwUVJrQHPgH8XvkYLcOKquA 246IGxl XvT8WAGnxwVkH6AaRXTtpTq tYcU7g3C9Rc3NyEbpwKJsDP 4gTcVrQXz3Y8GeMyl6LJWkl PglLW4s iWTfQTbhRe5udGbjiBqbND1 xEQMvlzqia574FiRtl3aqTQ WzqUSmXOioEXK8I42ug8I6P CMwMDAw OXF6bCN8kM8tfLhazvyxiRL mdDsgdmVydGljYWwtYWxpZ2 35ZIEagZlnJwSRXby9T5JvO bv0ISUm jSkeSF2neSJrISowMx8blGl wqQojVP9sDUGtexmzh788Lc Qga6blIIWqkVNuOOemWEI6N 28gd4U8 MRVgSJJuCBN6oTZ2wU6jaFp nbjogbGVmdDsgdmVydGljYW udSRhdT940SKYlyFepMm2FG nq9G4Jw Old5GKZxsNjuAP5crZTtDQd dQc5mlYpgdMhbEP5pWLRkmk pnw859TgWkh3nkNXVhpHHpZ GltZXM7 C83wj4P5CYTbRCGdFAV8wNG 3uB4zlUnndfzopWAurUujkb WwbJovXYenELejP685VHAdg DsnPlBh eWVyOjwvdGQ+WT34yu60A5E oQyxyDsz4PBMaQKV1yII5pH 7kGEQkEQecl6J3uUJ0D9Jon mLxdo5i b2x (more content not included)... Normal [facility] Compliance Drug Analysis, Ur LCon 10-02-2024 Summary LC FINAL Invalid Interpretation Code [facility] Comment on above: Result Comment: ===== TOXASSURE COMP DRUG ANALYSIS,UR ===== Test Result Flag Units Drug Present Carboxy-THC 180 ng/mg creat Carboxy-THC is a metabolite of tetrahydrocannabinol (THC). Source of THC is most commonly herbal marijuana or marijuana-based products, but THC is also present in a scheduled prescription medication. Trace amounts of THC can be present in hemp and cannabidiol (CBD) products. This test is not intended to distinguish between dgsar-6-mwazibmsdkuyfdfipknp, the predominant form of THC in most herbal or marijuana-based products, and rqlvk-7-lphfdqgpoxgxgelgmvro. Lamotrigine PRESENT Acetaminophen PRESENT ===== Test Result Flag Units Ref Range Creatinine 45 mg/dL >=20 ===== Declared Medications: Medication list was not provided. ===== For clinical consultation, please call . ===== ToxAssure, ToxAssure FLEX or MAT drug testin -Technical component - Data analysis performed at [facility], [address] [place] [address]. [phone]. Adding Machine Servicer César Bains MD. ToxAssure, ToxAssure FLEX or MAT drug testing: -Technical component - [facility] certification [facility] at [facility], [facility][note 3][address] [address]. [phone] [employer] Serv[employer] César Bains MD. Performed At: [employer] [address] [place] [id number] Brendon Galan [facility] Ph:[phone] Performed By: #### 1 [id number] ####[facility] (DEFAULT)[address] [place] [address] C Urineon 09-28-2024 C Urine Mixed skin, or urogenital damián. Clinically insignificant Normal [facility] Comment on above: Performed By: #### 6 [id number] ####[facility] (DEFAULT)[address] [place] [address] HBsAg Screen LCon 09-27-2024 HBsAg Screen LC Negative Invalid Interpretation Code Negative [facility] Comment on above: Result Comment: Perf ormed At: [address] [id number] J Luis Gray PhD Ph:[phone] Performed By: #### 1 [id number], 0003270, 2300979, 07228002, [id number], 27260959, [id number], [id number] ####[facility] (DEFAULT)[address] [place] [address] HIV 4th Gen Screen w Reflex LCon 09-27-2024 HIV Scr 4th Gen LC Non-Reactive Invalid Interpretation Code Non Reactive [facility] Comment on above: Result Comment: HIV- 1/HIV-2 antibodies and HIV-1 p24 antigen were NOT detected. There is no laboratory evidence of HIV infection. HIV Negative Performed At: [address] [id number] J Luis Gray PhD Ph:[phone] Performed By: #### 1 [id number] #### [facility] (DEFAULT) [address] [place] [address] RPR, Rfx Qn RPR/Confirm TP L Con 09-27-2024 RPR LC Non-Reactive Invalid Interpretation Code Non Reactive [facility] Comment on above: Performed By: #### 1 [id number], 8033760, 0573582, 31297491, [id number], 75923366, [id number], 83406584 ####[facility] (DEFAULT)[address] [place] [address] Rubella Antibodies, IgG LCon 09-27-2024 Rubella Antibodies, IgG LC 2.78 index Invalid Interpretation Code Immune >0.99 [facility] Comment on above: Result Comment: Non- immune <0.90 Equivocal 0.90 - 0.99 Immune >0.99 Performed At: [address] [id number] J Luis Gray PhD Ph:[phone] Performed By: #### 1 1501461, 3955608, 0716116, 03121230, 2149170658, 15137404, 1720810553, 57489265 ####[facility] (DEFAULT)[address] [place] [address] .Auto Diff 1on 09-26-2024 Auto [place] % 6 % Normal 04-29 [facility] Comment on above: Performed By: #### 1 5282407, 7907141, 0017614, 90311007, 0398496137, 97778197, 1583524590, 85987338 ####[facility] (DEFAULT)[address] [place] [address] Baso Abs# 0.0 x10 Normal 0.0-0.2 [facility] Comment on above: Performed By: #### 1 3416753, 2631604, 0698878, 43079960, 3361342968, 41945484, 1302190843, 07128925 ####[facility] (DEFAULT)[address] [place] [address] Basophils/100 WBC (Bld) 0.1 % Low 0.2-2.0 [facility] Comment on above: Performed By: #### 1 4652682, 7052295, 1938358, 32258804, 0553911643, 79388695, 3170106908, 54970316 ####[facility] (DEFAULT)[address] [place] [address] Eos Abs# 0.2 x10 Normal 0.0-0.4 [facility] Comment on above: Performed By: #### 1 6607982, 0890478, 9717784, 78874180, 6608116056, 66041016, 4632368236, 50492919 ####[facility] (DEFAULT)[address] [place] [address] Eosinophils/100 WBC (Bld) 2.0 % Normal 0.9-4.0 [facility] Comment on above: Performed By: #### 1 5670830, 7098482, 6167599, 23959756, 1303666003, 39665990, 5582279383, 58191628 ####[facility] (DEFAULT)[address] [place] [address]99 Lymph Abs# 2.0 x10 Normal 1.3-2.9 [facility] Comment on above: Performed By: #### 1 4776453, 2671801, 8258309, 38628938, 4220482651, 50704439, 9498915142, 83287922 ####[facility] (DEFAULT)[address] [place] [address] 39729 Lymphocytes/100 WBC (Bld) 26 % Normal 14-48 [facility] Comment on above: Performed By: #### 1 5901942, 8949929, 5350930, 23779384, 4152269328, 20759978, 1215971397, 36696321 ####[facility] (DEFAULT)[address] [place] [address] Billings Abs# 0.5 x10 Normal 0.0-0.8 [facility] Comment on above: Performed By: #### 1 7090875, 6776339, 2277368, 36303498, 9502607894, 54091930, 3371547762, 29447959 ####[facility] (DEFAULT)[address] [place] [address] Neut Abs# 5.1 x10 Normal 1.5-9.2 [facility] Comment on above: Performed By: #### 1 9474186, 3250591, 8553221, 29535079, 6491061870, 04118673, 0807835124, 36730194 ####[facility] (DEFAULT)[address] [place] [address] Neutrophils/100 WBC (Bld) 66 % Normal 44-88 [facility] Comment on above: Performed By: #### 1 5131809, 5735424, 8134455, 20120460, 7708089488, 97196202, 8588286901, 96509134 ####[facility] (DEFAULT)[address] [place] [address] ABORhon 09-26-2024 ABO and Rh group Nom (Bld) Hx Check: Not Found Anti-A: 4+ Anti-B: 0 Anti-D: 2+ DCon: NT A1: 0 B: 2+ ABORh Interp: A POS Invalid Interpretation Code [facility] Comment on above: Performed By: #### 1 1813702, 7779320, 5625066, 09825861, 1971261992, 48156925, 0797019836, 57867002 ####[facility] (DEFAULT)[address] [place] [address] ABSC Gelon 09-26-2024 ABSC Gel Negative Normal [facility] Comment on above: Performed By: #### 1 0627184, 6934990, 0610532, 87883841, 1869953665, 17485965, 1048452471, 66071211 ####[facility] (DEFAULT)[address] [place] [address] CBC w/ Auto Diffon Erythrocyte distribution width (RBC) [Ratio] 13.2 % Normal 11.5-15.0 [facility] Comment on above: Performed By: #### 1 0121993, 6052177, 5754215, 33534756, 8264280821, 80917689, 4014203535, 88144166 #### [facility] (DEFAULT) [address] [place] [address] Hematocrit (Bld) [Volume fraction] 39.9 % Normal 33.7-40.4 [facility] Comment on above: Performed By: #### 1 8590452, 2179153, 6200925, 80527383, 5917527355, 14697096, 3488427896, 55072767 #### [facility] (DEFAULT) [address] [place] [address] Hemoglobin (Bld) [Mass/Vol] 13.9 g/dL Normal 11.3-15.9 [facility] Comment on above: Performed By: #### 1 4149354, 9394705, 1567010, 21136454, 6279432360, 40764475, 8893570985, 43154745 #### [facility] (DEFAULT) [address] [place] [address] Man Diff? Auto Invalid Interpretation Code [facility] Comment on above: Performed By: #### 1 3050375, 5695307, 6968615, 22658715, 2114268958, 88535808, 8187866166, 92203629 #### [facility] (DEFAULT) [address] [place] [address] MCH (RBC) [Entitic mass] 29 pg Normal 24-34 [facility] Comment on above: Performed By: #### 1 3897321, 0741506, 1600911, 33910391, 1954772620, 60696296, 5031059566, 59101050 #### [facility] (DEFAULT) [address] [place] [address] MCHC (RBC) [Mass/Vol] 35 g/dL Normal 26-37 [facility] Comment on above: Performed By: #### 1 5623838, 6548979, 4684013, 07510191, 7544132125, 44836297, 5715204224, 58820623 #### [facility] (DEFAULT) [address] [place] [address] 17035 MCV (RBC) [Entitic vol] 84 fL Normal 81-100 [facility] Comment on above: Performed By: #### 1 0413718, 6810995, 7359595, 35623264, 5019035491, 78535746, 2121086107, 73365943 #### [facility] (DEFAULT) [address] [place] [address] Platelet 210 x10 Normal 138-427 [facility] Comment on above: Performed By: #### 1 0896543, 3074042, 7783006, 57696848, 5709481731, 14800976, 2807342463, 38028610 #### [facility] (DEFAULT) [address] [place] [address] 88412 Platelet mean volume (Bld) [Entitic vol] 6.3 fL Normal 6.3-10.2 [facility] Comment on above: Performed By: #### 1 1642833, 0473547, 2876623, 09387043, 5138386386, 92923638, 8867480817, 28537561 #### [facility] (DEFAULT) [address] [place] [address] 92494 RBC 4.76 x10 Normal 3.70-5.30 [facility] Comment on above: Performed By: #### 1 5648092, 0281656, 6725441, 64733895, 5886401876, 79359918, 6155383103, 40199433 #### [facility] (DEFAULT) [address] [place] [address] 45254 WBC 7.8 x10 Normal 3.5-10.5 [facility] Comment on above: Performed By: #### 1 5662599, 3298353, 5398989, 75285396, 4866561074, 32530161, 3271154469, 37092123 #### [facility] (DEFAULT) [address] [place] [address] 54495 HBV surface Ag IA Qlon 09-26 Hepatitis B Surface Antigen Negative [facility] HIV 1+2 Ab+HIV1 p24 Ag IA Ql on 09-26-2024 HIV 1&2 AB/AG Non-Reactive [facility] HgbA1c Standardon 09-26-2024 .Hb 13.1 Invalid Interpretation Code [facility] Comment on above: Performed By: #### 1 6496201, 8947919, 0828417, 11439352, 2299917926, 16072194, 7584483164, 79674555 ####[facility] (DEFAULT)[address] [place] [address] 58783 .Hgb A1c 0.38 g/dL Invalid Interpretation Code [facility] Comment on above: Performed By: #### 1 8433460, 4446353, 2742435, 26047955, 8906492586, 13638625, 3756676980, 38932849 ####[facility] (DEFAULT)[address] [place] [address] Glucose [Mass/Vol] 91 mg/dL Invalid Interpretation Code [facility] Comment on above: Performed By: #### 1 8946694, 8959178, 0837540, 66896651, 0047145404, 02973989, 0053716999, 56516921 ####[facility] (DEFAULT)[address] [place] [address] HbA1c (Bld) [Mass fraction] 4.8 % 4.0 - 6.0 % [facility] Comment on above: Performed By: #### 1 8274038, 3251253, 7438773, 39296021, 8189419709, 27330049, 3872932992, 84181389 ####[facility] (DEFAULT)[address] [place] [address] No Panel Informationon 09-26 [facility] Provider Orderson 09-26-2024 Provider Orders [id number] GTIFF Normal [facility] Rubella IGG immune statuson 09-26-2024 Rubella immune IgG 2.[address] [facility] T. pallidum IgG+IgM IA Ql (S )on 09-26-2024 Syphilis Non-Reactive [facility] Type and screenon 09-26-2024 Abo/Rh(D) Positive [facility] Ultrasound - Officeon 2024 [facility] HCG ( test) Ql (U)o n 09-20-2024 Interpretation and review of laboratory results Abnormal [facility] Preg Test, Ur Positive Negative [facility] US OB TRANSVAGINALon 025 US OB TRANSVAGINAL EXAM: US OB TRANSVAGINAL HISTORY: Dating, IVF. [...] II, MD, PHD at 21-Sep-2024 08:26:46 AM [facility] Normal Not Available Comment on above: Order Comment: US OB TRANSVAGINAL No LMP recorded. Urinalysis macro (dipstick) panel (U)on 09-20-2024 Bilirubin, UA Negative Negative - 4(70) +++ mg/dL [facility] Blood, UA Negative Negative - 50 Yehuda/mcL [facility] Clarity, UA Clear [facility] Color, UA Yellow [facility] Glucose, UA Negative Negative - 1999(110) ++++ mg/dL [facility] Interpretation and review of laboratory results Normal [facility] Ketones, UA Negative Negative - 160(16) ++++ mg/dL [facility] Leukocytes, UA Trace Negative - 500+++ Kourtney/mcL [facility] Nitrite, UA Negative Negative - Positive [facility] pH, UA 6.5 5 - 9 [facility] Protein, UA Negative Negative - 1999(20) ++++ mg/dL [facility] Spec Grav, UA 1.025 1 - 1.03 [facility] Urobilinogen, UA 0.2 0.2 - 12 mg/dL [facility] CNNURSEon 09-03-2024 CNNURSE Nurse Visit (REIAV) JAZ SANDERS ([id number]) 1995 F Date Time Provider Department 09/03/24 10:[address] REJ REIAV During your visit today, we recorded the following information about you: Charisse Weaver APRN.CNP 09/03/2024 5:42 PM Signed Jaz Sanders here today for a scan. This is her 2nd scan. History of ectopic: No History of SAB: No History of chemical - possible - not verified History of pelvic/abdominal surgeries: Yes - gall bladder and gastric sleeve LMP 07/19, natural cycle, date of LH surge: 07/30, IUI: 07/31 Latest Ref Rng 04/02/2024 ABO A Rh(D) Positive Antibody Screen Negative Type+Scr Expiration 04/05/2024 23:59 Varicella Zoster IgG, Qual Positive Positive Rubella IgG, Qual Positive Positive hCG levels: 08/13 - 63.6 08/15 - 160.6 08/17 - 362.7 Dating on 08/28 : Currently 6w0d based off of IUI date. By Ultrasound, measuring 5w6d FHR: 100 Dating for 09/03: LMP on: 07/19/2024 [place] by LMP 6 [...] w + 6 d Assigned DARWIN: 04/23/2025 FHR: 114 Plan Move on to OB Charisse Weaver APRN.CNP September 03, 2024 5:39 PM Referring Provider: SHELLY HERNANDEZ [[id number]] Allergies As of Date: 09/03/2024 (Not on File) Date Reviewed: 08/20/2024 Reviewed by: Shelly Hernandez APRN.POTATO INSPECTOR - Fully Assessed Visit Diagnosis:Early stage of (HCC) [Z34.90] Order(s):OBSTETRIC ULTRASOUND [facility] [[id number]] Order #: [id number]. #:[id number] WPOINTQty: 1 Prescriptions as of 09/03/2024 - buPROPion SR (WELLBUTRIN SR) 150 mg 12 hr tablet Take 1 tablet by mouth once daily. - PNV Combo No.47-Iron-FA #1-DHA (PNV-DHA) 27 mg iron-1 mg -300 mg Take 1 capsule by mouth once daily. - naltrexone 50 mg tablet Take 2 tablets by mouth two times a day. - lansoprazole (PREVACID) 30 mg capsule Take 30 mg by mouth once daily. - acetaminophen (TYLENOL) 500 mg tablet Take 500 mg by mouth every 8 hours as needed for pain. - lamoTRIgine (LAMICTAL) 200 mg tablet Take 200 mg by mouth once daily. - Polysaccharide Iron Complex (PRO FE) 180 mg iron cap Take 2 capsules by mouth two times a day. - docusate sodium (COLACE) 100 mg capsule Take 100 mg by mouth two times a day as needed for constipation. - busPIRone (BUSPAR) 15 mg tablet Take 15 mg by mouth two times a day. - levothyroxine 50 mcg cap Take 50 mcg by mouth every morning. - QUEtiapine (SEROQUEL) 25 mg tablet Take 25 mg by mouth daily at bedtime. Problem List As Of Date: 09/03/2024 (None) Encounter Status:Closed by BRADFORD DOSS on 09/03/24 Normal [facility] Examination level ultrasound on 09-03-2024 Indication Viability, Repeat Impression - Single, live, intrauterine . - An intrauterine gestational sac with a yolk sac and pole is present. - Edson rump length measurement is consistent with the established gestational age. - heart rate is within normal limits. Recommendations Referral to OB Maternal Assessment Height 180 cm Height (ft) 5 ft Height (in) 11 in Weight 98 kg Weight (lb) 216 lb BMI 30.13 kg/m Method Transvaginal ultrasound examination [place] . Number of embryos: 1 Dating LMP [...] Lt ovary: Visualized Performed By: Nina Farnsworth; RDMS Read By: Bradford Doss M.D. MATERNAL MEDICINE [facility] Radiology Study observation (narrative) [facility] CNNURSEon 08-28-2024 CNNURSE Nurse Visit (REIBD) JAZ SANDERS ([id number]) 1995 F Date Time Provider Department 08/28/24 11:10 AM US TECH 2 [facility] RE[facility]D During your visit today, we recorded the following information about you: Shelly Hernandez APRN.CNP 08/30/2024 4:36 PM Signed Jaz Sanders is here today for an early scan due to pain. This is her 1st scan. History of ectopic: No History of SAB: No History of chemical - possible - not verified History of pelvic/abdominal surgeries: Yes - gall bladder and gastric sleeve LMP 07/19, natural cycle, date of LH surge: 07/30, IUI: 07/31 Latest Ref Rng 04/02/2024 ABO A Rh(D) Positive Antibody Screen Negative Type+Scr Expiration 04/05/2024 23:59 Varicella Zoster IgG, Qual Positive Positive Rubella IgG, Qual Positive Positive hCG levels: 08/13 - 63.6 08/15 - 160.6 08/17 - 362.7 Dating: Currently 6w0d based off of IUI date. By Ultrasound, measuring 5w6d FHR: 100 Plan: repeat scan next week as scheduled MARQUITA Almaguer Julierut, MD 08/30/2024 4:36 PM Signed Viable ratliff IUP Size equal Date. Plan: patient to follow up with her ob for care. Stacy Banuelos MD Referring Provider: SHELLY HERNANDEZ [[id number]] Allergies As of Date: 08/28/2024 (Not on File) Date Reviewed: 08/20/2024 Reviewed by: Shelly Hernandez, SECURITY INSTALLER.POTATO INSPECTOR - Fully Assessed Visit Diagnosis: resulting from assisted reproductive technology in first trimester ([facility]) [O09.811] Order(s):OBSTETRIC ULTRASOUND [facility] [[id number]] Order #: [id number]. #:[id number] WPOINTQty: 1 Prescriptions as of 08/30/2024 - buPROPion SR (WELLBUTRIN SR) 150 mg 12 hr tablet Take 1 tablet by mouth once daily. - PNV Combo No.47-Iron-FA #1-DHA (PNV-DHA) 27 mg iron-1 mg -300 mg Take 1 capsule by mouth once daily. - naltrexone 50 mg tablet Take 2 tablets by mouth two times a day. - lansoprazole (PREVACID) 30 mg capsule Take 30 mg by mouth once daily. - acetaminophen (TYLENOL) 500 mg tablet Take 500 mg by mouth every 8 hours as needed for pain. - lamoTRIgine (LAMICTAL) 200 mg tablet Take 200 mg by mouth once daily. - Polysaccharide Iron Complex (PRO FE) 180 mg iron cap Take 2 capsules by mouth two times a day. - docusate sodium (COLACE) 100 mg capsule Take 100 mg by mouth two times a day as needed for constipation. - busPIRone (BUSPAR) 15 mg tablet Take 15 mg by mouth two times a day. - levothyroxine 50 mcg cap Take 50 mcg by mouth every morning. - QUEtiapine (SEROQUEL) 25 mg tablet Take 25 mg by mouth daily at bedtime. Problem List As Of Date: 08/28/2024 (None) Encounter Status:Closed by MIKEY HENLEY on 08/30/24 Normal [facility] Examination level ultrasound on 08-28-2024 Indication Viability Impression - Single, live, intrauterine . - An intrauterine gestational sac with a yolk sac and embryo is present. - Edson rump length measurement is consistent with the established gestational age. - heart rate is within normal limits. - A small subchorionic hematoma noted. Recommendations recommend repeat scan in 7-14 days for follow up growth. Method Transvaginal ultrasound examination [place] . Number of embryos: 1 Dating LMP [...] fluid: no free fluid visualized Performed By: rAelis Chavez RDMS Read By: Mikey Torres M.D. MATERNAL MEDICINE [facility] Radiology Study observation (narrative) [facility] Xavier 08-24-2024 CNPN Telephone (REIBD) JAZ SANDERS ([id number]) 1995 F Date Time Provider Department 08/24/24 SHELLY HERNANDEZ REIBAri During your visit today, we recorded the following information about you: Charisse Ding 08/24/2024 11:52 AM Signed Pt would like a call back Marianna Ward RN 08/24/2024 1:58 PM Signed See 08/23/24 TE Marianna Ward RN August 24, 2024 1:58 PM Allergies As of Date: 08/24/2024 (Not on File) Date Reviewed: 08/20/2024 Reviewed by: Shelly Hernandez, MELY.POTATO INSPECTOR - Fully Assessed Reason for Visit: Patient Question [2377] Prescriptions as of 08/24/2024 - buPROPion SR (WELLBUTRIN SR) 150 mg 12 hr tablet Take 1 tablet by mouth once daily. - PNV Combo No.47-Iron-FA #1-DHA (PNV-DHA) 27 mg iron-1 mg -300 mg Take 1 capsule by mouth once daily. - naltrexone 50 mg tablet Take 2 tablets by mouth two times a day. - lansoprazole (PREVACID) 30 mg capsule Take 30 mg by mouth once daily. - acetaminophen (TYLENOL) 500 mg tablet Take 500 mg by mouth every 8 hours as needed for pain. - lamoTRIgine (LAMICTAL) 200 mg tablet Take 200 mg by mouth once daily. - Polysaccharide Iron Complex (PRO FE) 180 mg iron cap Take 2 capsules by mouth two times a day. - docusate sodium (COLACE) 100 mg capsule Take 100 mg by mouth two times a day as needed for constipation. - busPIRone (BUSPAR) 15 mg tablet Take 15 mg by mouth two times a day. - levothyroxine 50 mcg cap Take 50 mcg by mouth every morning. - QUEtiapine (SEROQUEL) 25 mg tablet Take 25 mg by mouth daily at bedtime. Problem List As Of Date: 08/24/2024 (None) Encounter Status:Closed by MARIANNA WARD on 08/24/24 [facility] 08-23-2024 CNPN Telephone (REIBD) JAZ SANDERS ([id number]) 1995 F Date Time Provider Department 08/23/24 SHELLY HERNANDEZ REIBD During your visit today, we recorded the following information about you: Yisel Sliver Lap Tender, Lana 08/23/2024 10:39 AM Signed Name: Jaz Sanders called today. : 1995 (home) [phone] (cell) Reason for call: pt called today informing the nurse she has been experiencing pain of level 4 from 1-10. Pt has been experiencing pain for 2 day. 5 weeks today. The patients preferred pharmacy has been captured for this encounter? Angella Morillo Sliver Lap Tender Shelly Hernandez, MELY.[facility] 08/24/2024 5:58 PM Signed spoke with Jaz, she is having weird discomfort, denies cramping or pain, but feels pressure she is able to perform daily tasks, denies one sided pain. denies bleeding Location: Midline low front, low back History of ectopic: No History of SAB: No History of chemical - possible - not verified History of pelvic/abdominal surgeries: Yes - gall bladder and gastric sleeve LMP 07/19, natural cycle, date of LH surge: 07/30, IUI: 07/31 Latest Ref Rng 04/02/2024 ABO A Rh(D) Positive Antibody Screen Negative Type+Scr Expiration 04/05/2024 23:59 Varicella Zoster IgG, Qual Positive Positive Rubella IgG, Qual Positive Positive hCG levels: 08/13 - 63.6 08/15 - 160.6 08/17 - 362.7 Plan: discussed pro's/con's of repeat hcg level versus ultrasound Ultrasound will allow us to assess the pelvis and make sure is appropriate for dates. Please schedule the patient for the following- Location: [facility] Provider: nurse Visit type: scan Reason for visit/appointment notes: scan Date: 08/28 Time (requested): 1110 If slot is full, please schedule the closest open slot. Call to patient needed: no Morillo Sliver Lap Tender, Lana 08/25/2024 8:37 AM Signed Pt is scheduled on 09/03/2024. Shelly Hernandez APRN.CNP 08/27/2024 11:51 AM Signed Addended by: SHELLY HERNANDEZ on: 08/27/2024 11:51 AM Modules accepted: Orders Allergies As of Date: 08/23/2024 (Not on File) Date Reviewed: 08/20/2024 Reviewed by: Shelly Hernandez APRN.CNP - Fully Assessed Reason for Visit: Pain [78] Primary Visit Diagnosis:Early stage of (HCC) [Z34.90] Order(s):OBSTETRIC ULTRASOUND [facility] [[id number]] Order #: [id number]: 1 FUTURE Prescriptions as of 08/27/2024 - buPROPion SR (WELLBUTRIN SR) 150 mg 12 hr tablet Take 1 tablet by mouth once daily. - PNV Combo No.47-Iron-FA #1-DHA (PNV-DHA) 27 mg iron-1 mg -300 mg Take 1 capsule by mouth once daily. - naltrexone 50 mg tablet Take 2 tablets by mouth two times a day. - lansoprazole (PREVACID) 30 mg capsule Take 30 mg by mouth once daily. - acetaminophen (TYLENOL) 500 mg tablet Take 500 mg by mouth every 8 hours as needed for pain. - lamoTRIgine (LAMICTAL) 200 mg tablet Take 200 mg by mouth once daily. - Polysaccharide Iron Complex (PRO FE) 180 mg iron cap Take 2 capsules by mouth two times a day. - docusate sodium (COLACE) 100 mg capsule Take 100 mg by mouth two times a day as needed for constipation. - busPIRone (BUSPAR) 15 mg tablet Take 15 mg by mouth two times a day. - levothyroxine 50 mcg cap Take 50 mcg by mouth every morning. - QUEtiapine (SEROQUEL) 25 mg tablet Take 25 mg by mouth daily at bedtime. Problem List As Of Date: 08/23/2024 (None) Encounter Status:Closed by SHELLY HERNANDEZ on 08/24/24 [facility] Coding Summaryon 08-22-2024 Coding Summary HTMLBase 64 TcmufdqwTGo8bQl+PGhlYWQ +NJ9SCQWvA95wcJGyxY9wX9 NMTElOSywgQVBQTElOSyIgb qXrEG6rwTOeJNQz IC8+LJ5gDTFsZhqtgYVnp8S 6qPA3U15seb1oGAswwYT8IX ReGmGnizcst1epqKk8HMaoE mluOyBt NIXogX82QRS3mF41Sg92tSY ceXKpe3hfkYh2EpCjILBoDT P7bQofUGdpd1DnEIIbQ49id YUcw6Y8 IIHezWtbkOXrEqXuzQY3tX8 cJEyjulvex2hvbdbkJoy1to 67cOCsf7W3cMA5Z9FbocA5E GJvbGQg RoidhDPOfF4svodtu6czgpo gDmLqRGYfDKg1RVy6FTBacC uvDmAwEV97CIK1EGBnexOqT 2FsLWFs cNwwVxB8g7S9Zs1TH6DYOmu wU2QYKCZFXLbrlIB+PC90cj 57Z9BjYddcZxf8HNVgNVB5t XL9mP0l YZLfDFbew1Q7cQA3B4RrixD ugy5rx7ioYGCfOSvdW53qkF Ifm4T4IZGrkQN9QFWbvFybW iBzaG93 Oyc+RPLxmLfba5QtVmhlv7q ep7zddBe1NnjzQMDjftMriF jfBBI7r1CvJr5iVOZtbNF9r YL4rJ3v WtYvReY2ZIdmD148RrXukYL sDewoX40oR0CrtVJ+PHRyPj n1EKOduQjpWE3yP8XlMJOfi mctbGVm aZvxTC2uLUDylnbzTQVofL0 tREDsQ6f7VyUgLaL7KApuN4 ZyIYWsnbfiSa25vM7rUiJvY sQ3YRea D8SkfhN6PVUojUPjPNgdQSI 1C53lg9Z0DCMxKEQuENR6qC C3iF3eiSburpmssRTtxOtly mVydGlj WVdjSIudS720LMJziRoyEmB vZGluZyBEYXRlOiAgMDUvMD cvMjAyNTwvdGQ+IPDxKNP1n WxlPSAn fNPjNMsdLm8wyBhegHxnJD8 jLKKsovinMMZzxQ3sYMBygK RzqTneXM4tFFKdztxxp503W iAxMHB0 WSKubVHtJ7BsaT8nNmLgNWT uVTZzH6XnxYZnMTexT880LF gyWwC4KPJxnhHrU8FtCMLrq WduOiB0 c4W9Ud0Gd1ZxvyaoK3EeuWT tJrDfUdooZOz4O4LsSpczxT I+UT28QLOzSP32GOc6DCE9o WxlPSdi EEKzG9FgmX0tDhTnJMKtKQR kOyc+PHRhYmxlIHdpZHRoPS grWALqMlUtuUplAZ3zGs0qZ GVyLWNv gTvmdJPeHwSss6zqNITaITx yDF6ezTmwT0AtkZZ7AJFlh8 a3Go56H76jQ5GinCD+PGNvb WC7yDQ9 dH3lDkGhJvN1SQxjH736GwS ayEXwPmnlf5bkd7fmjLl0Ij X8TEAeqlOoiIozAOE5v9IqF h91C60z IHdpZHRoPSIxNSUiIHZhbGl roy3dzV2pZy7+RIPsrWC8xC K9sD7oCcQhSiF4OYcyO984I nRvcCIv Lditw0sqt3vpdUs8BfVeYWA txuCzjNpxHGW9o9KcAz85H3 LdsCgpo2DaWbe2rz73pRStk 2D3hZZ8 E4VkWWEejphhsNOrxSbwRG8 fVUEyizsuHJBggQ1xUZXsX8 t4MzCcGbI5OYqnM5AzygH1Y GJvbGQg XZKtxAZQnA3wryhnv2tgedd tVpZfOEZkJSg2QUb9QWVwaR qpOsZeVIB9IfR9EEE2dYMdu G2neZvw bqotwJ7wGmz+ICF8vZLxiFF TRP1gAnfkjKO+GQDkHWN0zJ oxCKjqQIPvfI2oJJFcE3u4S iAwLjA1 JRlyH3HlihY7HIPxcAIeAKV fwFCHoP8noydtd6ehmofhGn OkWXHrEMu9JVi8YOZebWwqL iBsZWZ0 ObD5GMW5dHQhgC5fpYwwyrn cnD5nYrv+RpiwwZmfRUT5XA s6U1PfSha4UESmvVmlCD5mg GFkZGlu Pk4edVvwvYixCU7zDUYdmln bs698IeOgc5qyNJPrqVLiCH cuBQL6P23mv9R0QBVkTXOuJ CV7tPP6 yW2liYxpfjexiFCggYoxqwH opWnaMZyjSQlzE894WDBvzP tyFnPqDZb9I6EsYrm8QGIpd VztAD4g cGIzBNxlOx4rhAxadQeyUG1 mGJViipyey866XySpq8zdHV NeuALsRDtxKSD5J22vq0M8S CMwMDAw YVS8fQI3fE4ubUejrroznZT mdDsgdmVydGljYWwtYWxpZ2 56LBUwoJfbJnVblAg6W3EqC dl6JZSu eAerUF0ymQKsSNabGf6hqWr mvYehYE6hLZFkrmxap217Di Rts8dnTSJwdJTyZRtyASY7Y 81fs6L9 NIShTNCvATA2gYL6wM9lqSm nbjogbGVmdDsgdmVydGljYW csYDicY750WPEjeDuaCyAah GllbnQg IHdcTFf3P3FwJrredNF+PC9 6UXTdVO64vAMqkVMpz9ujhH o6ZwDwHUFaBPY3wNhsYNjmb 3JkZXIt M84tbFHzy2U5PFWbkPolsWU zIoHgmXL9rL5nNOankkceo2 rswvxdKjoci5fcox84zO97K 29sIHdp ZHRoPSIzMCUiIHZhbGlnbj0 lpZ6pVy3+PMAxiNM3pOA9hP 9bWYLeYgH6QColK158LwZkb CIvPjxj m5bck1ltlKg3RwE0OFQqzhK uwWciCJA8a4KkKa94C14hIO dpZHRoPSIyMCUiIHZhbGlnb s1hoG8m Ii8+LEYicAA8aOH1zN0dVaV zJpF9JUnrZ896GcMleWUyAd mxX69pM1VlkTB+EYDeCjg4N CBzdHls HK6jjBHsFYsxRk7bKLK1BxQ jBnXiNDumA7AfALRmzarzrt zikDG7ZDZdQTTvwW08Rm5ei DogMTBw lYURmV9gsmzty6dmkpyxBvQ gQYSeFUs9REi5OEWgvNxtHs WbSOI3SdC3NXS8jQAunM6we Glnbjog bL9gT4PiVKJsjvaoNu31fJ4 mIpNbJvB7FLzrWes+TUNDQU 5OLCBIRUFUSEVSIEVMSVpBQ kVUSDwv dGQ+TLQeCKS4gCmaZRcbPIS upS2hNVOpJ6c2CqGiXmJ8XG vnT2YgHHGgmesvYn53wV7fP iAwLjA1 QWszU7LjvnB1JYMpfRTnADl dMFQ6I07cv7C2PJDhYLPbGO L3bXI0vV1iuFtssdxdwBZzb DsgdmVy uXerDKszHNszW776FVZbfFt aYuCmVqQ1IyS8LNZ0I6CqVf z4PHPzxOrbSW8nkGAlSGstX u1avBvr gEepDN5sYNTbuzcqTPJitD3 pENNvhXYggYwpDW0hPLAfxb tgg759NlXkLCP3HYIxgAYsF 4FimJ5l PqKhEKPpNZRmM7EqxVEkMVr vT752YNdxDdG6YJOuvnGgA0 UwXHRanUoyWuZ8d4X1Ep0sP SBZZWFy czwvdGQ+HOQgVGJ9cGdbUQp sMHXkqF2vBKCeT9b3FaGtGy G3MTfoN6CePONzbzujZb76n J0aWpLs GsY8DEyuR9TupsN9ZCJzbEP dMBqfVEV7D75jw8Q6CQKdEI RpNDS1tTY5tI8dgDwtxyaew GVmdDsg phDrdNpnDBfqDSsdW257VCR vcDsnPkZFTUFMRTwvdGQ+PH MtJVJ1dSlsYFrrSZTheG6cV QQfR5q2 AvPiDuG4FWapJ2RzEGVensd rZw00yX9oBsGpNzQ5QOyvQ9 GgkqE4JYLxrUOhSBxzQMJ0Y 92wj1R7 QHMxUMAtXER2yVO6qF3knRd nbjogbGVmdDsgdmVydGljYW okXMonO630UQHnjPisOj8BO B75BJ28 B6BjPghgnQEjbKI+PHRhYmx lIHdpZHRoPScxMDAlJyBzdH jpXJ1iWx0sXEPpPKPjgMuqo HNlOiBj t6qoUTWmFBraHM8cuZgfD1S jgGI5DYNid8d1Qe52R11tV2 JvdXA+QJIujOW0yYD0dY8mK zAlIiB2 OQnxS740NjKcuMChGbiql3k qm4acoBh8CbYwLSQwszDkcH ahOGW9m1NqHu61M27oYWsjB HRoPSIy MJQsIBPcrRossu9zaS9yTl4 +NFIlzET5vKV0iF0vFmKxVh B6VEhlJ157MmCurJXsWfspE 33kR3Rk dXA+FDPgXnc2UQAbuJuwJY5 raNGjESzcGh5yUYQ2NyOnIq DxDAfmW6FgIYApphjqnnstd KC1BNOw IYItvG36Sl1mpQbcRg1xZVP jLIW5FBEzpXEaD5ButA2pLd NbSEVeTWHiA5UjzXNoOQqhM 246IGxl WkY4OSBldzHhQ8LwYEPpaFr wJjZ8g4K5Ts8XeLmukYDoCH 9kKePrDOh2U6PxAoc9AZJiu IieLJ9z kAYpWFfpSq0bvJyopOrfBH2 rKAJkcsnfp371IqBla0ldXR WlsPEkKJjbPPS6C30dq5Z2U CMwMDAw CBT8oWP5dR3glBdkbsxjxON mdDsgdmVydGljYWwtYWxpZ2 47EMBkrSyvDsDBNhd7V3KdH ws1TBMk oMczUW7kwAReRKujHr0twIq egIncLK1zDTVzwwmtz235Fz Evb9ktFDGriPPnIEylHNC0C 83dz7Q2 EWNeYKHxNRG3xOC1qP5evLp nbjogbGVmdDsgdmVydGljYW ozQFeuK867JRBgoVbcDw5WY ff3H6Do Ago9VNPeqFipPO3vfPGfSTq aMn9whXcmiFppKP5qQXGtri cdo383XgOjv9nhVPBbmQFaA GltZXM7 Z70my7Z6NKEkPUTmAEC7xGF 3mQ1qbYqcyfuwdHOqhCydjg RvnMszZMdkONnuA397CGAau DsnPlBh eWVyOjwvdGQ+GU36nl11K8E fEtraRri9OZKkVRT2vTN1vM 1aXBVmPHtxv0R0rLH7B4Ypx xGwbz7p b2x (more content not included)... [facility] Coding Summaryon 08-20-2024 Coding Summary HTMLBase 64 EmnjzyedFXv3hEi+PGhlYWQ +FW6WEGJbI55drIEtrA7oY2 NMTElOSywgQVBQTElOSyIgb kVsNW5roQRoJSDt IC8+EX0xWSWaSaoxhHYcl6S 0xOP6D36knq5oTPthqLA3JL HeMrTdtrfmo1dbsFp6ALluH mluOyBt SJStcT65SIR9zM14Wr38cXN nnTIlr9tbuYa4OvKzPPPyUR Y7lDieDTzya2SpFGZhF27hc QRjt0K2 VRBzmQqpyACrGcMraBF6bU1 cCIkskrodc4puimhpWmo5lv 52eUQvo9D7tMH3I1RzlfB5V GJvbGQg LnptbVQStE2emvrok0rgwzl aRvDbXXAaZZq1PZo0VQSaiT cfStSfOW79CVO0EYBgouJyP 2FsLWFs xVhjTsL0n4B9Yy6VS0FCNxo hN3OGCMNMIZercZY+PC90cj 71Z9NyRexiKjz3ERMwXSQ5q CT2mY6p FFUbSSexr7D5cDD0R5EnozB eiu9yt7jhJTLgMAckY67lhS Zpf1O0KAWkoJM6DWAjoZrlS iBzaG93 Oyc+CSHhdCsol7RrKjkvw2i ex6soxOu4EsmtLQCfytBfqW hqVEB7h4KoTn3lYVAolKI9e TH5rW6c QoBgNaP6INjnM553QyHxzZB vCzbjR26fH4KwkFD+PHRyPj w0HQPumPkiJL5zM6LeYSLni mctbGVm pQekOL6cMNUgmbzwLECueO7 uVRWwB2q5MhAzQfP6WZvzV8 WtFFIkknbmEl58jA3nBpZcO kI2TPci P2OsxmZ2TIMlkBWoKGioGKR 5R62hn0X1FAVyDAFgZQQ1iK O6bD4kwPvfrcdvuUSmwNnfs mVydGlj XEsxNAnzD815YKVzfLxmEuP vZGluZyBEYXRlOiAgMDUvMD UvMjAyNTwvdGQ+IGLmSWJ3p WxlPSAn mJIuSNgsLh9ujQnplQavDO3 jSHArinrfFUKfbW1eKJHnbE ZysOhiYK2fYAEtmtiak011A iAxMHB0 SWXlbDEuY5LbvL4eRnNxZXY xLHSbF1JwaXGsYJsyH409AD jdBsX3XXBtxgByW2EmJEZsu WduOiB0 z6W2Dp3Pp6RqpqncM5PnbZZ wHkDoWaizXHs9W9GdRooiiQ I+QP32XOHsFI36IGg5CTS9s WxlPSdi XRFdI1MdtV8uJbXkWURyRVZ kOyc+PHRhYmxlIHdpZHRoPS ynSSZlSmQqgHnpNU9yRd9yP GVyLWNv nYkfgEIoUuHne4zdEIZqULx pKB7eiRalL1LgxPQ0QHLmt5 y2Ir71Q83nG1QwuID+PGNvb WU0qFR5 uH3bBdApEmV8WFuzV295CyU lsHPeXmfzk5uke4qerNw2Pk U8REXiiaKgaHqxRXY6n3WnJ d64O90p IHdpZHRoPSIxNSUiIHZhbGl kjy5aiO3mKm3+LIJpwQK4kZ Z0mH9uSwRrFmU6GKitG215B nRvcCIv Kkmjs2uid4fgfRl2FzWrLDB amvSeoNdrWRG3t5OzAv93J5 BjeWlcg8TbBwy5xf51oUUvn 3I6iGL6 S4HhAPNqwpqkdRUisHrqQB4 sDTSxmywsOGBhaZ8vKVKrV9 z9LgPmTfL5NSrgT1MhqmV3X GJvbGQg IZKjaSCRuK2vrgzpu7wyowk vMbHrLCKoHOu5HLh6MKLuqT bzJtBsLLL1RsP1ENN1mFHrd P8skTxl rwbowT0dBwa+SUD4cZIreSQ OZK5jOnjjeVO+HQPbOEF1pB fqNNccYZBqhM3yVBObT4m7T iAwLjA1 MLfsB3EhkxJ8TAViyJJbWPR obHXSxX9seppzg7aimfahCe FxHEQvCWm0SXm6ZJIciOqoN iBsZWZ0 FaJ1ZDX1uENmaY4yzLxppcn zlM6qEfn+WiofmUyySHA7HQ n9A2YaBge0BQCbvMxnFC5nk GFkZGlu Uq3rjYqpsTrxNB3hWMAmqpc gg591MrAzd7ifDHBssJWvEX ceNDX8N76yg1J4FXHsORFrS TY5dXO6 oR2tdGzzlhkccQPrdTwadhS hbGxwYLdoEJlyF879RAXclB zyWrRmAJl9M4DhFwl6ZNVbx NxmUV4s wPRtFDueDc0laBscsOboVF7 nSJFlalotw204KpBml0qhMI EhhCEzEFrhRQP1M23jb3A7E CMwMDAw TVY1hXZ5lM6bcFckjobelKX mdDsgdmVydGljYWwtYWxpZ2 35SQEvyJjfUlIhiGa5J1YxO xx9YAKl bBgrTI8cdBLvUGjoLt5rzXt aaAwvFU7pYKOfqzmqa756Kc Rhs6ttTCXshEQuFKziKNQ5H 98qd8C1 HXWxZZPfFFR7aCK2eT6uuTp nbjogbGVmdDsgdmVydGljYW cjFSgvE247GABtpEieMxXnn GllbnQg IJmnNMm7X7UwUkifpXW+PC9 7OQZaVP33rWPpzESqk6uqwD s7AiXjXRSbMVH9zEadGBohq 3JkZXIt Y17bjIEzn4T7IZYduMxopSI aQxXzoFF2uE9aJLqekhcli3 aquqcdBbimw6bevl72jQ10J 29sIHdp ZHRoPSIzMCUiIHZhbGlnbj0 wpW3kXz7+LLEixTU4zVV3xU 6fBFGgPyZ6YHtkY015SiGaq CIvPjxj g1ega7vyxXh9QsN6RFMhppI wiUigAUT0x2ZrMo74K60sYG dpZHRoPSIyMCUiIHZhbGlnb x6skD9s Ii8+HFPpfLU7eNX3bJ3xWrT pOjW2ZOwqO250FoFllOSgRg wzM51aT7BncXH+QOOaGlq2B CBzdHls AR7idZGuMDgfMh6lLAI2XcW lLdMsNQjuW5AjLPBishxlhu cqrSP0XWRnXCLtpL39Hu7tm DogMTBw jMKCcJ3flwybc2fhdmqiAhB yVUNvDEr3PNn2PZWbzGecIz IhUGS9UsO9BLW6sDIzkH6ms Glnbjog jL0fY6FlMGBjbavaDe16vU4 bQlWwZxM7SSnfWkf+TUNDQU 5OLCBIRUFUSEVSIEVMSVpBQ kVUSDwv dGQ+MFGxWMW7dDviCSxmGIP vjW1xULDkQ1m9NzYxAyH3FA fjC7UwGIXtgvljEc55sF7fY iAwLjA1 FKfrL2OrteK1FIAbzDHqMPt oAKA8O79jh5M4DHVtLCLmHU L4wOA4fF4zrGfmohhmnSBsp DsgdmVy tSaqVSpsMMrbX400RCBlsXo mDvCtUyB8QcO4TUU4M4DkQc k1XQHicXodXV7zgKFoMOlfA z2nxAcu dDhbGP4vADFclhtkSUWofP6 gHIJsnNTztDghKK7eEHUbsy kzm447UpQjFFK7DFKqhSEvZ 7ZtvT3t HrTeHVMcHABzQ8ErfHOpGPd bM568TSgvVnO6MYNcdbCcR7 DpDYOliZzsUaE3l2X0Yf1gW SBZZWFy czwvdGQ+MXFrFQW2oHibTZm pBUSlkT0aINUlI3b4HuOjRg H0THgeQ1TdJZAxyeziEz55t Y0jZuEp TaE7MNvwA3OazaZ3VXRhlPO mZXxbGQV4L34zy8B2RXHhMH PbFMH6tVU6fC6saKjzcgqme GVmdDsg ciNbdUcwRUjfFRztA208YYR vcDsnPkZFTUFMRTwvdGQ+PH DbOEO2dHrhRMguMVRsnW6yF THaX5e5 CiRbQgY3MIoxX5EaYPApwnk eDe64zR9jNbBgDcG3PHtnF6 VebjX6DSEswIFiOHcrERS9A 98sm4E6 QBOkHYDkPLH8aXA7oR0mvMa nbjogbGVmdDsgdmVydGljYW ryIKduM280JUBgkFqkJk2XS I99BX78 E7DiCgiliHYhnAN+PHRhYmx lIHdpZHRoPScxMDAlJyBzdH dhMF7mMt1tHZGdEHDvmCvbo HNlOiBj a2pwDXDyOWxvNF1fnMmdK5A usMV6EFQui3q5Ma05F21iN5 JvdXA+VYTudRW6kGF3vE8lM zAlIiB2 FSnkG555RzHdjWDwTqdwq2e kg1adgJs9PbZiBQOpmsZjrL fwVIT0a6XaYp89A46iGHzhK HRoPSIy ABIrHRKuzFryvy9wqK7cDt7 +OLNgmYF4aSY9dP6gRxPwVj C2LWemM187MlVraCBuBdeiY 90zZ9Kq dXA+KVUgTkb7IISjuVsdDN2 mrBVxXJntKt7lPJV3LmUdQy RnSQerQ7EnJJWnogpmqntmn VB5ZNVb BRIqyF19Zd4dpZcdAh4dMQK aMUX5JHDqsEEvV9HmxZ5kIm AdPQVhXGJiZ9ElyCWuDRrkH 246IGxl RmX6WVJmqnBaM1CcBQBrbVg kGdD4s8J3Wi5PjNzyxJEdKC 4tUcHzIWt7Z9AvAer1GXCze KqoUN5e nILsPNrkVa3eeTwshGmeRU2 sIYQqkomty913MqHwr3mdPW XigKHaIZicOFD9U11qt0B1Z CMwMDAw KLB9oNR0tC1vcPhwqszmnTB mdDsgdmVydGljYWwtYWxpZ2 25WYOxpGraKwEADvl1J4GeD sr1SYUq kFidMD8bsSVeOArjQl6nqGq zxJllRV5tSWCklryun071Rc Hen1qhFCNilHEdHBdzFHV8K 20ws7F3 EMAuZBJaXUF1bWX8iQ9ugJs nbjogbGVmdDsgdmVydGljYW atPMiqJ374MWWygQloXe3BJ zm8J4Pw Eun4XEKtwLhiSG6scCQpYBd mIy4xoSbfjUuhOK7bOTAtcd eok495PwChm7wqYZWzuBPbY GltZXM7 X02js9R6XSXnMUFdOHC5ySP 2yY8ikXvvhceyqLXtdEyigy CnlIroLRwfMCuxX050AYKuc DsnPlBh eWVyOjwvdGQ+IS26bd50B8F fQpbsVbr3QJNgSKG1aLO0oW 4lIUXaHVfog1E3eCD3K4Ovs jLgck2c b2x (more content not included)... [facility] Coding Summary HTMLBase 64 XhkdqedrLPs2nPz+PGhlYWQ +KF4ODPKrT29xnIZpkW3gS4 NMTElOSywgQVBQTElOSyIgb eWlRG6weOGzGTTe IC8+XP7rXCSmMauipLSej8L 2vAW2G89qdw8qGObsnCF4ZZ GoZrLdkqewd9yxiRi2JNrwE mluOyBt QASabG89TLH0bN42Qm74kGW etOMhx8pvqSl5GfBjHWSyCR Z6nEpsQTrix4FhPYYcG54sh BZgq2S7 DQDrhDyenQWgNuAobUN5fK9 pHTjbcvyig9zcakniOqg9wg 02hAEvj1Z5gWP8G2VhfzT7D GJvbGQg ZifbxTXXnB3dhszvk4zurnc rIdVeJHTdNHc5EWi4TDFvoF fnPlFkGR32CYI4UYHrapNiT 2FsLWFs rKrcYjF3y3M1Je6YI8MQZxm dT4YCSAWXRDtndMO+PC90cj 35M8YuRzorRqh3ULRiDWM0t IJ7aG5z JCVpIKccs8Z8uSI3F7EitwS qof2yv2phFHIuUCmbP26azQ Rxd8C0FMXjhOR7YEGaaIbuH iBzaG93 Oyc+GSHccOrox1KkAjgjl2z qk3keuNf5IbdcOHUownUxrX tsIHO5c0ItUu6qVJOgkQN2m YW1qA8e GrKnHkU8FXavD361YgGrtYQ uLhcaE37sS1MhvMU+PHRyPj o5TEOzcEfdFG6kR9UqVOBko mctbGVm vWzzWE6nSDHkcydyRJAheI6 aCNQtS3m5GaPaNgP6EUdjY6 TdYWVxxcvtDt95uB3vLyNrN tD7ZAws J6AheiT0RUPtpSQcGKqqGXY 8V07zx4U6BWKpLGEfMGE5nF O7kT7onLlhfdlzoNXytRzmp mVydGlj PFzyMCrgE336TLFypCduYaU vZGluZyBEYXRlOiAgMDUvMD UvMjAyNTwvdGQ+XGYkXWS4f WxlPSAn vSLzWZocXu8efLtzjXtgAL0 iWNDkhxiiFTEqmO0oKHJxtQ LslSftFS8pEXXfbrtne305F iAxMHB0 KZKmkOXgN9LctA4hUpTiMOS aLZCrX8CqeLInMMmvK567WQ ubIyI0CRBdntPlC1SuGSWbe WduOiB0 i1G7Iu5Ck9GpoglgZ3SdpZQ jGoVrHkyrOGh6M6WyZvhfaH I+NG18PMUvRP43PPv8EHA0e WxlPSdi TTIkT2XqnA1cPhDoFRVfRLI kOyc+PHRhYmxlIHdpZHRoPS qtANWsAwYbgRvhMD8hNl6fI GVyLWNv sPqizRUzCbEmd3czYXUmTPj zTH7qdKrqO4ZleET7DPYjf0 l2Pu63Q47dH9JawWF+PGNvb VQ4vTU3 bU6aJyPoVdN3SDtpL265YmG xvAZfFekyk3lpg6ivhZg5Fx K5GPGkayBzmZmtDRF5y1ZjX a38P82r IHdpZHRoPSIxNSUiIHZhbGl fob0xkH9uSg6+MEQmmXR4dJ P6vQ1oBoIjNaC3JKviA746I nRvcCIv Jsvmz0iso9bhbMp0QyHoDVW arrDqkEmtLCB2m4KfKy62C2 IhtBthm7WyKbp7mf31zEVbg 7Z2uCQ4 M8WdEDFhmeftbEBhnWcdJL7 iZOWitmizJSOvjO4oBMVjM7 g7EdBnTpP5XEplC1OyzkT0G GJvbGQg HPDqpTUPtN7vmnypo9uimet mIpZxSDQkFCy4JIq9TKEedZ bvNgJbNUT3LaA8HEE8oDFwm Q2lyRgh blvjqG0uBpm+WRJ0bXJwkPE TQN1yLklopMU+EOVkOOP9kK apPPocKDAolU5mXFTnT8j1T iAwLjA1 RFgfO1BsxeC8EXLgiHMsMAO fsFWVcS0bfsjgr0vqcbgbKc SbVCKcGFb0TVk5KRFknBlrZ iBsZWZ0 UkG7RLO4eDEidD9ceEyqibx yxQ1gCzj+OhbxhZhzRBL0HQ n7Q3ElBcg7MXDlnVmmUF7xu GFkZGlu Ef3kmKjmkRddEP2wFFNbzcy ej707UnWuk3klAEHxpEPnQU ceIUK2P83qr9Z2UHBeEOPvX FA2pJC4 zE6dyUeevplhjWZulWkdcyH rtQwxSEnlGEzqX300IRUpzR muEgFaCQn3Z1VsAry4LQUnf OewHF5o bRZnYPwcQw2onNhlwLcoSM3 dRJTumgxnc852FiKwz5seQN MdiJWxFNslQKT8F16sl5W3X CMwMDAw DVI2wQH2cI8xoVkfusdfyCT mdDsgdmVydGljYWwtYWxpZ2 89HOAnfQauZkNkwRk4K7ByF ri4JNLr jDafVC5kxZOrXNdzGx6veHt xoXnmMJ5xDCMfwbgwv449So Kfi1voRGCseQIkXVnuJYE1F 54bo4N8 QPAzAEZzKRR9eQT0tJ9zbVj nbjogbGVmdDsgdmVydGljYW cuHAsjI744NDAjyTfyVuLss GllbnQg FGqkSXl5W0CxBnnvzDY+PC9 2XVMtUH43bFWtgXCfu0hutY u5CbLiAFEuEJD8hUbmDXxwe 3JkZXIt P25hqIRsn1G0JIFusBowiIH nWaEynRT9cE2cZMttpfhhg0 qpjmcgEnefd6lmpe07zH01E 29sIHdp ZHRoPSIzMCUiIHZhbGlnbj0 fmM7rWi7+AICnsHH7kTL4dO 4mBLLlEpT7BTdzT369QlKzd CIvPjxj z6hph1vhcUn3PiV7JVBhytZ qyPlfQSU8z2EyCl74B76jFX dpZHRoPSIyMCUiIHZhbGlnb i0dwY9c Ii8+MOGhdEZ0xAR3iZ0jViX pAlV1UXowE643VsCgqWNkJe ykL59kV9LfqMT+UIDmEao5D CBzdHls MX4dgTYnPGocCg5wNSI6GlX mMtXhRTwbF1LgGJOiixezxu gmyIO4ZFVjCXTwlX64Uw2vv DogMTBw sGZLlC5scgsja0lpjlpqClZ fVKEoLQj8WFu1GOBvfQhrHs QeEQD4OkJ2ERL2bCLmaW3op Glnbjog xY7zI3CqHRIrjxfkWc11wG5 vFrRyLnK8SXfkYae+TUNDQU 5OLCBIRUFUSEVSIEVMSVpBQ kVUSDwv dGQ+FMXsRLD7pPfdOVjgESZ iuF1gNMQxB0l8YtYeYdL8UM vfY7GiFEZieaniMm41pS9hO iAwLjA1 QRwiE0SfoiH0EEEzmGJrZGq tEUD6U05xy1M1HXXtBCYrEO O3yOJ6wO5awLrswcwqlOFxp DsgdmVy kLqrBCgxQOyqX018WEAkbTq lUeKpOfN7TqM7YRK8Y9FnHo g6OILxaWkuQN7raWJoSVhzU c6tuWlj kMljGW7rTVOdmbnrFXIbyM0 oLOQabJObcKbzDF9oVFFdor fob657LzWpIBR6ZUAhhDNcP 5BpcF6e BqTxBKOcLZAaU2HcvJUkZPd qS205BFytMaA2JJTekpAlW0 UqRKHfpWqmSwO2p9A0Hk6kP SBZZWFy czwvdGQ+CPPpJZA5qMujYUn pQHBgjM2sMCAiR8f3UjVeLz J9CPmxB5PpCCDiybzuJe13n T3nWxQz AkL2IYyhC5QdxfK6KIMnmRO aXDlwNTB7J40zv0O8DIByRP KiUTZ5hXX3qQ5snDdylbmgh GVmdDsg vrLteGepROkrXQayB566EVQ vcDsnPkZFTUFMRTwvdGQ+PH UqGLP6nUjlXYauTKKlfC4uJ TWuC6z0 HyIhZfE7LTcxM4XjZHVylgy tOw40pV7nWrJpRfD0SDkkT1 BnxyN1FOUsbSRgNKvcNED5Y 75zh6J3 UVSdTBBvTHC5sUN5iZ3nbMr nbjogbGVmdDsgdmVydGljYW fqJFrfO562PWNwaDpeFa5WP S33HU89 I3MpLzwkqSCxcTO+PHRhYmx lIHdpZHRoPScxMDAlJyBzdH omCW7wTp3wGGHtBKKdkTeam HNlOiBj w5xuEXIoVFkpOE7hiOxfU0D ctYM1FFTtr2a9Ae91F67yV7 JvdXA+VIYlfKM9eQX4lE5aE zAlIiB2 PVbvB603SaJjcHVkRjnhl2j nq1uwrSa8JxWmPMCdgaUazR ikLAU8f3RlVd02F43vZNjxY HRoPSIy GOQyGGKjtHuctr3ddP8iJa1 +WYFzcOP1kTR4eI4yOaFcRf D2JGnpN581ZkTdeBHvNoqzG 76dL8Mf dXA+XHRuMls5WGHspDwyYB3 uwQHsEFqkGz9dHOS2XnVjDe KsGCknF6TaRCVqmgxvzyjrf IE0JNZe YBTodI53Gb8fdIczGy8zXZZ yZCH4FPIdxYTwU6VqeX7zYt JmIZCnGJHaM6BhkYVxMNdpZ 246IGxl EiJ1TFUvyfAaX9HaESLpiMh xBhN7a8X7Of0XsKyntPIeJL 3qWzFqCFu0K8RpAvr3JDRzj ZajFH9x pUVcOXduOe6uvVndxRryGT7 cVGIhpqxgi990FfAyx4deCE OyjARjHUqdFTY4E26vu1B0H CMwMDAw UOC0jWR5eD2vcWelbybqkAJ mdDsgdmVydGljYWwtYWxpZ2 11FONpnEjeAeQKSzk0C1JoE le1HZPc vVqyVK2wdRDwOWwbPr4xxHb azIdbER1dJPKydvgpk047Jj Dmg1adLFHubPGyUGdsATJ6T 86mh6D7 MNRzAJTyYUO4pNX4zN3wiEi nbjogbGVmdDsgdmVydGljYW bqACauO595YVYxjLmrLk5YF eh7C1Wz Qpi1XOTkcTxyNR3ttDGxDQq nSd1tmRrecIrgOM6bIPUpkf kmf456VgHxz1sgCXImuTBsY GltZXM7 V91yi4S8UPGtAEUkXMC6xSS 2vM4eqJultuwpkFDyrStjrz QboLegXJdcXIgyG941NMLsp DsnPlBh eWVyOjwvdGQ+ZD06gx75I6I xNysaKne5ZZTaTMO7aCZ9qX 8xEYLwSWfdq8F6tAX3L1Dqu lUeee8i b2x (more content not included)... [facility] Provider Orderson 08-17-2024 Provider Orders [id number] TGTIFF Normal [facility] [place] hCG Quantitativeon hCG Quantitative 362.7 mIU/mL High 0.0-0.6 [facility] Comment on above: Result Comment: Post -Menopausal Reference Range is: 0.1-11.6 mIU/mL Performed By: #### [id number] #### [facility] (DEFAULT) [address] 08-16-2024 JARRODN Telephone (REIBD) JAZ SANDERS ([id number]) 1995 F Date Time Provider Department 08/16/24 SHELLY HERNANDEZ During your visit today, we recorded the following information about you: Yisel Sliver Lap Tender, Lana 08/16/2024 12:31 PM Signed Name: Jaz Sanders called today. : 1995 (home) [phone] (cell) Reason for call: pt called that she got positive test, she has been having having cramping since last night , it happens every hours for couple minutes. The patients preferred pharmacy has been captured for this encounter? yes Angella Morillo Sliver Lap Tender Daniel Hanna APRN.CNP 08/16/2024 5:28 PM Signed Called patient back to phone number listed in [facility]-no answer. Lm for patient to look out for [employer] message. Daniel Hanna APRN.CNP August 16, 2024 5:15 PM Allergies As of Date: 08/16/2024 (Not on File) Date Reviewed: 05/09/2024 Reviewed by: Shelly Hernandez APRN.CNP - Fully Assessed Reason for Visit: positive for [Other] Primary Visit Diagnosis: resulting from assisted reproductive technology in first trimester ([facility]) [O09.811] Prescriptions as of 08/16/2024 - naltrexone 50 mg tablet Take 2 tablets by mouth two times a day. - lansoprazole (PREVACID) 30 mg capsule Take 30 mg by mouth once daily. - acetaminophen (TYLENOL) 500 mg tablet Take 500 mg by mouth every 8 hours as needed for pain. - lamoTRIgine (LAMICTAL) 200 mg tablet Take 200 mg by mouth once daily. - Polysaccharide Iron Complex (PRO FE) 180 mg iron cap Take 2 capsules by mouth two times a day. - docusate sodium (COLACE) 100 mg capsule Take 100 mg by mouth two times a day as needed for constipation. - busPIRone (BUSPAR) 15 mg tablet Take 15 mg by mouth two times a day. - levothyroxine 50 mcg cap Take 50 mcg by mouth every morning. - QUEtiapine (SEROQUEL) 25 mg tablet Take 25 mg by mouth daily at bedtime. Problem List As Of Date: 08/16/2024 (None) Letter Text Encounter Status:Closed by DANIEL HANNA on 08/16/24 [facility] 08-15-2024 [facility] Telephone (REIBD) JAZ SANDERS ([id number]) 1995 F Date Time Provider Department 08/15/24 SHELLY HERNANDEZ During your visit today, we recorded the following information about you: Charisse Ding 08/15/2024 2:10 PM Signed Pt is preg and wants to know if she can take benadryl due to her having hives Marianna Ward RN 08/23/2024 8:21 AM Signed See 08/20/24 visit with TY Vega RN August 23, 2024 8:21 AM Allergies As of Date: 08/15/2024 (Not on File) Date Reviewed: 05/09/2024 Reviewed by: Shelly Hernandez APRN.POTATO INSPECTOR - Fully Assessed Reason for Visit: Patient Question [1477] Prescriptions as of 08/23/2024 - buPROPion SR (WELLBUTRIN SR) 150 mg 12 hr tablet Take 1 tablet by mouth once daily. - PNV Combo No.47-Iron-FA #1-DHA (PNV-DHA) 27 mg iron-1 mg -300 mg Take 1 capsule by mouth once daily. - naltrexone 50 mg tablet Take 2 tablets by mouth two times a day. - lansoprazole (PREVACID) 30 mg capsule Take 30 mg by mouth once daily. - acetaminophen (TYLENOL) 500 mg tablet Take 500 mg by mouth every 8 hours as needed for pain. - lamoTRIgine (LAMICTAL) 200 mg tablet Take 200 mg by mouth once daily. - Polysaccharide Iron Complex (PRO FE) 180 mg iron cap Take 2 capsules by mouth two times a day. - docusate sodium (COLACE) 100 mg capsule Take 100 mg by mouth two times a day as needed for constipation. - busPIRone (BUSPAR) 15 mg tablet Take 15 mg by mouth two times a day. - levothyroxine 50 mcg cap Take 50 mcg by mouth every morning. - QUEtiapine (SEROQUEL) 25 mg tablet Take 25 mg by mouth daily at bedtime. Problem List As Of Date: 08/15/2024 (None) Encounter Status:Closed by SHELLY HERNANDEZ on 08/15/24 Normal [facility] Provider [place] 08-15-2024 Provider Orders [id number] TGTIFF Normal [facility] [place] hCG Quantitativeon hCG Quantitative 160.6 mIU/mL High 0.0-0.6 [facility] Comment on above: Result Comment: Post -Menopausal Reference Range is: 0.1-11.6 mIU/mL Performed By: #### [id number] #### [facility] (DEFAULT) [address] [place] [address] [place] 08-13-2024 JARRODN Telephone (REIBD) JAZ SANDERS ([id number]) 1995 F Date Time Provider Department 08/13/24 SHELLY HERNANDEZ During your visit today, we recorded the following information about you: Marianna Ward RN 08/13/2024 11:19 AM Signed Letters sent. MC sent to patient Marianna LEIGH Ward August 13, 2024 11:19 AM Allergies As of Date: 08/13/2024 (Not on File) Date Reviewed: 05/09/2024 Reviewed by: Shelly Hernandez APRN.POTATO INSPECTOR - Fully Assessed Reason for Visit: Wants hcg levels sent to [facility] / [place] far away [Other] Prescriptions as of 08/13/2024 - naltrexone 50 mg tablet Take 2 tablets by mouth two times a day. - lansoprazole (PREVACID) 30 mg capsule Take 30 mg by mouth once daily. - acetaminophen (TYLENOL) 500 mg tablet Take 500 mg by mouth every 8 hours as needed for pain. - lamoTRIgine (LAMICTAL) 200 mg tablet Take 200 mg by mouth once daily. - Polysaccharide Iron Complex (PRO FE) 180 mg iron cap Take 2 capsules by mouth two times a day. - docusate sodium (COLACE) 100 mg capsule Take 100 mg by mouth two times a day as needed for constipation. - busPIRone (BUSPAR) 15 mg tablet Take 15 mg by mouth two times a day. - levothyroxine 50 mcg cap Take 50 mcg by mouth every morning. - QUEtiapine (SEROQUEL) 25 mg tablet Take 25 mg by mouth daily at bedtime. Problem List As Of Date: 08/13/2024 (None) Letter Text Letter Text Encounter Status:Closed by MARIANNA WARD on 08/13/24 [facility] Provider [place] 08-13-2024 Provider Orders [id number] OTGTIFF Normal [facility] [place] hCG Quantitativeon hCG Quantitative 63.6 mIU/mL High 0.0-0.[address] [facility] Comment on above: Result Comment: Post -Menopausal Reference Range is: 0.1-11.6 mIU/mL Performed By: #### [id number] #### [facility] (DEFAULT) [address] [place] [address] CNOVon 07-31-2024 CNOV Office Visit (REIBD) JAZ SANDERS ([id number]) 1995 F Date Time Provider Department 07/31/24 3:00 PM SHELLY HERNANDEZ REARLET During your visit today, we recorded the following information about you: Last Period 07/19/24 Mustapha Tello MA 07/31/2024 3:12 PM Addendum Patient verified by full name and date of . Jaz Maria Eugenia is here today for an IUI. LMP: 07/19/2024 Natural cycle IUI Timed With: Ovulation Predictor Kit , Date: 07/30/2024 Segmental Paver Installer offered: Patient declines Mustapha Tello MA July 31, 2024 3:12 PM Dominguez Barry 09/05/2024 10:45 PM Signed IUI specimen released to provider Dominguez Barry July 31, 2024 3:24 PM Dominguez Barry 09/05/2024 10:45 PM Signed IUI Cryobio Donor # [id number] Pre: frozen washed specimen Post: 82 M/ml, 67% Insem # 27.5 million Shelly Hernandez APRN.CNP 09/05/2024 10:45 PM Signed WHI JAMEL IUI PROCEDURE NOTE Date: 07/31/2024 Primary Proceduralist: Shelly Hernandez APRN.CNP Consents and Labels Consent Signed: Informed Consent obtained and on the chart Labels Verified With Patient: Yes Indications: Jaz Sanders, is a 29 year old female here today for intrauterine insemination. IUI # 3. Cycle Day: Last menstrual period: 07/19/2024 [place] Protocol: UNIVERSAL PROTOCOL / SAFETY CHECKLIST Procedure to be Performed: IUI Sign In: A Moment of CARE was completed. Appropriate PPE (Personal Protective Equipment) worn by all providers involved with the procedure. Special equipment not required. Patient/Surrogate Stated/Verified: Patient name, Date of , Relevant allergies, and The intended procedure Time Out: Relevant labs, photos, and/or imaging studies are not applicable. Intended patient and procedure match the source document(s) (e.g. consent, HANDP, associated studies [imaging, pathology]) match the intended patient and procedure. Consent obtained and matches the intended procedure. Yes. Correct side/site is not applicable. Medications required for this procedure are not applicable. Fire risk assessed and is not applicable. Implants: are not applicable. Sign Out: Specimens not collected. All instruments, equipment, possible retained foreign bodies are accounted for. Yes. The post-procedure plan of care has been communicated to the patient or surrogate. IUI IUI Date: 07/31/24 Partner's Name: Sravan Sanders IUI Time: 3:24 PM EDT Partner's : 09/09/1997 IUI #: 3 Partner's Patient's LMP: 07/19/24 Pre-Procedure Diagnosis: Infertility Post-Procedure Diagnosis: Infertility Cycle Meds: Natural Cycle Catheter Type: Unisem catheter Tenaculum: No Catheter passed: Easy Complications: None Sperm Information: Source of Sperm: Donor Ejaculated: Yes Fresh/Frozen: Frozen TMC (total motile count of sperm after wash): 27.5 million Cycle reviewed, all questions answered. Pt instructed to take a test in 17 days if no menses and call with results. SIGNATURE: Shelly Hernandez APRN.CNP PATIENT NAME: Jaz Sanders DATE: September 05, 2024 TIME: 10:45 PM Referring Provider: SELF [200] Allergies As of Date: 07/31/2024 (Not on File) Date Reviewed: 05/09/2024 Reviewed by: Shelly Hernandez APRN.CNP - Fully Assessed Reason for Visit: Infertility [285] Cmt: IUI Primary Visit Diagnosis:Encounter for artificial insemination [Z31.89] Prescriptions as of 09/05/2024 - buPROPion SR (WELLBUTRIN SR) 150 mg 12 hr tablet Take 1 tablet by mouth once daily. - PNV Combo No.47-Iron-FA #1-DHA (PNV-DHA) 27 mg iron-1 mg -300 mg Take 1 capsule by mouth once daily. - naltrexone 50 mg tablet Take 2 tablets by mouth two times a day. - lansoprazole (PREVACID) 30 mg capsule Take 30 mg by mouth once daily. - acetaminophen (TYLENOL) 500 mg tablet Take 500 mg by mouth every 8 hours as needed for pain. - lamoTRIgine (LAMICTAL) 200 mg tablet Take 200 mg by mouth once daily. - Polysaccharide Iron Complex (PRO FE) 180 mg iron cap Take 2 capsules by mouth two times a day. - docusate sodium (COLACE) 100 mg capsule Take 100 mg by mouth two times a day as needed for constipation. - busPIRone (BUSPAR) 15 mg tablet Take 15 mg by mouth two times a day. - levothyroxine 50 mcg cap Take 50 mcg by mouth every morning. - QUEtiapine (SEROQUEL) 25 mg tablet Take 25 mg by mouth daily at bedtime. Problem List As Of Date: 07/31/2024 (None) Encounter Status:Closed by SHELLY HERNANDEZ on 09/05/24 [facility] CNOV Office Visit (ANDRBE ) JAZ SANDERS ([id number]) 1995 F Date Time Provider Department 07/31/24 2:30 PM ANDROLOGY MARKET RESEARCH MANAGER [facility] During your visit today, we recorded the following information about you: Dominguez Barry 07/31/2024 3:26 PM Signed Thaw for IUI. Dominguez Barry Referring Provider: SELF [200] Allergies As of Date: 07/31/2024 (Not on File) Date Reviewed: 05/09/2024 Reviewed by: Shelly Hernandez APRN.JARROD - Fully Assessed Primary Visit Diagnosis:Procreative management [Z31.9] Prescriptions as of 07/31/2024 - naltrexone 50 mg tablet Take 2 tablets by mouth two times a day. - lansoprazole (PREVACID) 30 mg capsule Take 30 mg by mouth once daily. - acetaminophen (TYLENOL) 500 mg tablet Take 500 mg by mouth every 8 hours as needed for pain. - lamoTRIgine (LAMICTAL) 200 mg tablet Take 200 mg by mouth once daily. - Polysaccharide Iron Complex (PRO FE) 180 mg iron cap Take 2 capsules by mouth two times a day. - docusate sodium (COLACE) 100 mg capsule Take 100 mg by mouth two times a day as needed for constipation. - busPIRone (BUSPAR) 15 mg tablet Take 15 mg by mouth two times a day. - levothyroxine 50 mcg cap Take 50 mcg by mouth every morning. - QUEtiapine (SEROQUEL) 25 mg tablet Take 25 mg by mouth daily at bedtime. Problem List As Of Date: 07/31/2024 (None) Encounter Status:Closed by DOMINGUEZ BARRY [facility]31[facility] (REIBD) JAZ SANDERS ([id number]) 1995 F Date Time Provider Department 07/30/24 SHELLY HERNANDEZ During your visit today, we recorded the following information about you: Sathyamanisha Charisse 07/30/2024 3:16 PM Signed N- ivf Pt has questions regarding IUI Shelly Hernandez APRN.POTATO INSPECTOR 07/30/2024 6:00 PM Signed patient's OPK today was dark but not positive Plan: test again tomorrow. if darker, schedule IUI on Tuesday if clinical orthoptist than today, schedule IUI the same day Shelly Hernandez APRN.CNP July 30, 2024 6:00 PM Allergies As of Date: 07/30/2024 (Not on File) Date Reviewed: 05/09/2024 Reviewed by: Shelly Hernandez APRN.CNP - Fully Assessed Reason for Visit: Patient Question [1477] Prescriptions as of 07/30/2024 - naltrexone 50 mg tablet Take 2 tablets by mouth two times a day. - lansoprazole (PREVACID) 30 mg capsule Take 30 mg by mouth once daily. - acetaminophen (TYLENOL) 500 mg tablet Take 500 mg by mouth every 8 hours as needed for pain. - lamoTRIgine (LAMICTAL) 200 mg tablet Take 200 mg by mouth once daily. - Polysaccharide Iron Complex (PRO FE) 180 mg iron cap Take 2 capsules by mouth two times a day. - docusate sodium (COLACE) 100 mg capsule Take 100 mg by mouth two times a day as needed for constipation. - busPIRone (BUSPAR) 15 mg tablet Take 15 mg by mouth two times a day. - levothyroxine 50 mcg cap Take 50 mcg by mouth every morning. - QUEtiapine (SEROQUEL) 25 mg tablet Take 25 mg by mouth daily at bedtime. Problem List As Of Date: 07/30/2024 (None) Encounter Status:Closed by SHELLY HERNANDEZ on 07/30/24 [facility] CNOVon 07-07-2024 CNOV Office Visit (REIBD) JAZ SANDERS ([id number]) 1995 F Date Time Provider Department 07/07/24 10:00 AM MIKEY TORRES During your visit today, we recorded the following information about you: TanMikey calvin MD 07/19/2024 7:48 AM Addendum WHI JAMEL IUI PROCEDURE NOTE Date: 07/07/2024 Primary Proceduralist: Naika Duran MD Consents and Labels Consent Signed: Informed Consent obtained and on the chart Labels Verified With Patient: Yes Indications: Jaz Sanders, is a 29 year old No obstetric history on file. female here today for intrauterine insemination. IUI # 2. Cycle Day: 14 Last menstrual period: 06/24/2024 [place] Protocol: UNIVERSAL PROTOCOL / SAFETY CHECKLIST Procedure to be Performed: IUI Sign In: A Moment of CARE was completed. Appropriate PPE (Personal Protective Equipment) worn by all providers involved with the procedure. Special equipment not required. Patient/Surrogate Stated/Verified: Patient name, Date of , Relevant allergies, and The intended procedure Time Out: Relevant labs, photos, and/or imaging studies have been reviewed. Intended patient and procedure match the source document(s) (e.g. consent, HANDP, associated studies [imaging, pathology]) match the intended patient and procedure. Consent obtained and matches the intended procedure. Yes. Correct side/site has been marked and visible. Medications required for this procedure are verified. Fire risk assessed and is not applicable. Implants: are not applicable. Sign Out: Specimens not collected. All instruments, equipment, possible retained foreign bodies are accounted for. Yes. The post-procedure plan of care has been communicated to the patient or surrogate`. IUI IUI Date: 07/07/24 Partner's Name: Sravan Sanders IUI Time: 10:15 AM EDT Partner's : 09/09/1997 IUI #: 2 Partner's Patient's LMP: 06/24/24 Cycle Day: 14 Pre-Procedure Diagnosis: Infertility Post-Procedure Diagnosis: Infertility Cycle Meds: Natural Cycle Trigger: LH Surge Date Catheter Type: Curve catheter Tenaculum: No Catheter passed: Mildly Difficult For difficult catheter pass, add additional details: Cervical Polyp, was able to perform IUI without US guidance. Complications: None Sperm Information: Source of Sperm: Donor Fresh/Frozen: Frozen TMC (total motile count of sperm after wash): 10.8 Million Donor ID #: [id number] Cycle reviewed, all questions answered. Pt instructed to take a test in 17 days if no menses and call with results. SIGNATURE: Nakia Duran MD PATIENT NAME: Jaz Sanders DATE: July 07, 2024 TIME: 10:04 AM Fellow performed the procedure, without direct supervision but with primary surgeon/proceduralist readily available and the remainder of the procedure was performed by the primary surgeon/proceduralist with assistance. MD Pauly Jim Meghan E 07/19/2024 7:50 AM Signed IUI specimen released to provider Nichelle Gonzalez July 07, 2024 10:10 AM Nichelle Gonzalez 07/19/2024 7:50 AM Signed IUI Cryobio #[id number] Washed frozen specimen Post: 31 m/ml, 77% Insem#: 10.8 million Referring Provider: DANIEL HANNA [[id number]] Allergies As of Date: 07/07/2024 (Not on File) Date Reviewed: 05/09/2024 Reviewed by: Shelly Hernandez APRN.POTATO INSPECTOR - Fully Assessed Primary Visit Diagnosis:Encounter for artificial insemination [Z31.89] Prescriptions as of 07/19/2024 - naltrexone 50 mg tablet Take 2 tablets by mouth two times a day. - lansoprazole (PREVACID) 30 mg capsule Take 30 mg by mouth once daily. - acetaminophen (TYLENOL) 500 mg tablet Take 500 mg by mouth every 8 hours as needed for pain. - lamoTRIgine (LAMICTAL) 200 mg tablet Take 200 mg by mouth once daily. - Polysaccharide Iron Complex (PRO FE) 180 mg iron cap Take 2 capsules by mouth two times a day. - docusate sodium (COLACE) 100 mg capsule Take 100 mg by mouth two times a day as needed for constipation. - busPIRone (BUSPAR) 15 mg tablet Take 15 mg by mouth two times a day. - levothyroxine 50 mcg cap Take 50 mcg by mouth every morning. - QUEtiapine (SEROQUEL) 25 mg tablet Take 25 mg by mouth daily at bedtime. Problem List As Of Date: 07/07/2024 (None) Encounter Status:Closed by MIKEY HENLEY on 07/19/24 Normal [facility] CNOV Office Visit (ANDRBE ) JAZ SANDERS ([id number]) 1995 F Date Time Provider Department 07/07/24 9:30 AM ANDROLOGY MARKET RESEARCH MANAGER [facility] During your visit today, we recorded the following information about you: Nichelle Gonzalez 07/07/2024 9:41 AM Signed Thaw for IUI Nichelle Gonzalez Referring Provider: DANIEL HANNA [[id number]] Allergies As of Date: 07/07/2024 (Not on File) Date Reviewed: 05/09/2024 Reviewed by: Shelly Hernandez APRN.POTATO INSPECTOR - Fully Assessed Primary Visit Diagnosis:Procreative management [Z31.9] Prescriptions as of 07/07/2024 - naltrexone 50 mg tablet Take 2 tablets by mouth two times a day. - lansoprazole (PREVACID) 30 mg capsule Take 30 mg by mouth once daily. - acetaminophen (TYLENOL) 500 mg tablet Take 500 mg by mouth every 8 hours as needed for pain. - lamoTRIgine (LAMICTAL) 200 mg tablet Take 200 mg by mouth once daily. - Polysaccharide Iron Complex (PRO FE) 180 mg iron cap Take 2 capsules by mouth two times a day. - docusate sodium (COLACE) 100 mg capsule Take 100 mg by mouth two times a day as needed for constipation. - busPIRone (BUSPAR) 15 mg tablet Take 15 mg by mouth two times a day. - levothyroxine 50 mcg cap Take 50 mcg by mouth every morning. - QUEtiapine (SEROQUEL) 25 mg tablet Take 25 mg by mouth daily at bedtime. Problem List As Of Date: 07/07/2024 (None) Encounter Status:Closed by NICHELLE GONZALEZ on 07/07/24 [facility] EUGENIAJAZ ([id number]) 1995 F Date Time Provider Department 07/06/24 SHELLY HERNANDEZ During your visit today, we recorded the following information about you: Sivan Roberto 07/06/2024 2:39 PM Signed Patient states she is calling back unsure about if she is okay to proceed with iui tomorrow. Please call patient. Becki Isaacs PA-C 07/06/2024 3:26 PM Signed Called the pt back. Pt had an US done 07/04/24--Possible small 4 mm intracervical canal polyp. No other abnormal findings. Advised to move on with IUI tomorrow. FYI: Dr. Guy and TY Vega. Please let me know if any different instructions. Becki Isaacs PA-C July 06, 2024 3:26 PM Allergies As of Date: 07/06/2024 (Not on File) Date Reviewed: 05/09/2024 Reviewed by: Shelly Hernandez APRN.POTATO INSPECTOR - Fully Assessed Reason for Visit: Patient calling back/re iui 07/07 unsure [Other] Primary Visit Diagnosis:Encounter for fertility planning [Z31.89] [Z31.89] Prescriptions as of 07/06/2024 - naltrexone 50 mg tablet Take 2 tablets by mouth two times a day. - lansoprazole (PREVACID) 30 mg capsule Take 30 mg by mouth once daily. - acetaminophen (TYLENOL) 500 mg tablet Take 500 mg by mouth every 8 hours as needed for pain. - lamoTRIgine (LAMICTAL) 200 mg tablet Take 200 mg by mouth once daily. - Polysaccharide Iron Complex (PRO FE) 180 mg iron cap Take 2 capsules by mouth two times a day. - docusate sodium (COLACE) 100 mg capsule Take 100 mg by mouth two times a day as needed for constipation. - busPIRone (BUSPAR) 15 mg tablet Take 15 mg by mouth two times a day. - levothyroxine 50 mcg cap Take 50 mcg by mouth every morning. - QUEtiapine (SEROQUEL) 25 mg tablet Take 25 mg by mouth daily at bedtime. Problem List As Of Date: 07/06/2024 (None) Encounter Status:Closed by BECKI ISAACS on 07/06/24 [facility] ([id number]) 1995 F Date Time Provider Department 07/05/24 IGNACIO GUY During your visit today, we recorded the following information about you: Sivan Roberto 07/05/2024 3:03 PM Signed On day 11 now, inquiring about if okay to proceed with iui with cervical polyp. Patient believes it will be tomorrow or Tuesday for iui- inquiring if polyp needs to be removed first. Marianna Ward RN 07/06/2024 11:18 AM Signed See other TE for 07/04 Marianna Ward RN July 06, 2024 11:17 AM Allergies As of Date: 07/05/2024 (Not on File) Date Reviewed: 05/09/2024 Reviewed by: Shelly Hernandez APRN.[facility] - Fully Assessed Reason for Visit: re iui this wknd/has cervical polyp question [Other] Prescriptions as of 07/06/2024 - naltrexone 50 mg tablet Take 2 tablets by mouth two times a day. - lansoprazole (PREVACID) 30 mg capsule Take 30 mg by mouth once daily. - acetaminophen (TYLENOL) 500 mg tablet Take 500 mg by mouth every 8 hours as needed for pain. - lamoTRIgine (LAMICTAL) 200 mg tablet Take 200 mg by mouth once daily. - Polysaccharide Iron Complex (PRO FE) 180 mg iron cap Take 2 capsules by mouth two times a day. - docusate sodium (COLACE) 100 mg capsule Take 100 mg by mouth two times a day as needed for constipation. - busPIRone (BUSPAR) 15 mg tablet Take 15 mg by mouth two times a day. - levothyroxine 50 mcg cap Take 50 mcg by mouth every morning. - QUEtiapine (SEROQUEL) 25 mg tablet Take 25 mg by mouth daily at bedtime. Problem List As Of Date: 07/05/2024 (None) Encounter Status:Closed by MARIANNA WARD on 07/06/24 [facility] 07-04-2024 JARR[facility]N Telephone (REIBD) JAZ SANDERS ([id number]) 1995 F Date Time Provider Department 07/04/24 SHELLY HERNANDEZ REIBAri During your visit today, we recorded the following information about you: Shelly Hernandez APRN.CNP 07/04/2024 7:30 PM Signed Spoke with Jaz regarding multiple questions. #1 - ultrasound results LMP 05/28, natural cycle, LH surge 06/08 -IUI 06/09 - cervix bled during IUI, Dr. Guy recommended ultrasound before getting another IUI. Ultrasound done today. Cervical polyp seen. Dr. Guy - please advise if this needs to be removed before doing another IUI. LMP 06/25, OPK getting a faint line but not yet positive. Patient is worried about ovulation. She is on cycle day 10 today, largest follicle on ultrasound was 15.8mm. Reassured patient that she is growing a follicle and I'm not surprised OPK is not yet positive. She is predicted to ovulate on Tuesday or Tuesday. Shelly Hernandez APRN.CNP July 04, 2024 7:30 PM Shelly Hernandez APRN.CNP 07/06/2024 4:59 PM Signed Ignacio Guy MD to Jamel Skylar Pool 07/05/24 9:05 AM Cervicalpolyp does not need to be removed. She will need [facility] guidance for her next IUI. Dr. Duran notified - she is scheduled for IUI tomorrow. Dr. Duran will arrange Shelly Hernandez APRN.CNP July 06, 2024 4:59 PM Allergies As of Date: 07/04/2024 (Not on File) Date Reviewed: 05/09/2024 Reviewed by: Shelly Hernandez APRN.CNP - Fully Assessed Reason for Visit: needs ultrasound guided IUI [Other] Primary Visit Diagnosis:Treatment plan provided [Z71.9] Prescriptions as of 07/06/2024 - naltrexone 50 mg tablet Take 2 tablets by mouth two times a day. - lansoprazole (PREVACID) 30 mg capsule Take 30 mg by mouth once daily. - acetaminophen (TYLENOL) 500 mg tablet Take 500 mg by mouth every 8 hours as needed for pain. - lamoTRIgine (LAMICTAL) 200 mg tablet Take 200 mg by mouth once daily. - Polysaccharide Iron Complex (PRO FE) 180 mg iron cap Take 2 capsules by mouth two times a day. - docusate sodium (COLACE) 100 mg capsule Take 100 mg by mouth two times a day as needed for constipation. - busPIRone (BUSPAR) 15 mg tablet Take 15 mg by mouth two times a day. - levothyroxine 50 mcg cap Take 50 mcg by mouth every morning. - QUEtiapine (SEROQUEL) 25 mg tablet Take 25 mg by mouth daily at bedtime. Problem List As Of Date: 07/04/2024 (None) Encounter Status:Closed by SHELLY HERNANDEZ on 07/04/24 Normal [facility] US Pelvison 07-04-2024 Indication infertility testing Impression Normal uterus. Trilaminar lining. Possible small 4 mm intracervical canal polyp. Normal ovaries bilaterally. Recommendations Additional follow-up as clinically indicated. Menstrual History LMP on 06/25/2024 Method Transabdominal, transvaginal, 3D ultrasound examination, Color Doppler examination Uterus Uterus: Visualized Endometrium: three-layer pattern Cervix details: increased Colorflow Doppler within the endocervical canal Uterus width 31 mm Endometrial thickness, total 8.6 mm Right Ovary Rt ovary: Visualized Rt ovary morphology: premenopausal polycystic Rt ovary D1 23 mm Rt ovary D2 20 mm Rt ovary D3 23 mm Rt ovary Vol 5.4 cm Rt ovarian follicle(s): Follicles identified Rt ovarian follicles other findings: 18 antral follicles< 10mm Left Ovary Lt ovary: Visualized Lt ovary D1 33 mm Lt ovary D2 28 mm Lt ovary D3 24 mm Lt ovary Vol 11.5 cm Lt ovarian follicle(s): Follicles identified Lt ovarian follicle D1 18.8 mm Lt ovarian follicle D2 12.7 mm Lt ovarian follicle mean 15.8 mm Lt ovarian follicle vol 1.592 cm Lt ovarian follicle D1 16.2 mm Lt ovarian follicle D2 7.4 mm Lt ovarian follicle mean 11.8 mm Lt ovarian follicle vol 0.463 cm Lt ovarian follicles other findings: 4 antral follicles< 10mm [place] Visualized. no free fluid visualized Performed By: Maria Elena Aceves RDMS Read By: Ignacio Guy M.D. MATERNAL MEDICINE [facility] Radiology Study observation (narrative) [facility] Xavier 06-29-2024 JARRODN Telephone (REIBD) JAZ SANDERS ([id number]) 1995 F Date Time Provider Department 06/29/24 SHELLY HERNANDEZ During your visit today, we recorded the following information about you: Kassidy Meyer 06/29/2024 8:53 AM Signed Pt had iui 06/09, pt isnt . Please follow up Cd1 06/23 . Pt had hematoma after iui Patricia Snow 07/02/2024 9:18 AM Signed Pt wants to know if she has to have us before iui this weekend Shelly Hernandez APRN.CNP 07/03/2024 12:34 PM Signed unable to reach, left message to return my call Shelly Hernandez APRN.JARROD July 03, 2024 12:33 PM Patricia Snow 08/13/2024 8:52 AM Signed Pos preg test Marianna Ward RN 08/13/2024 9:17 AM Signed See TE encounter dated 08/13 Marianna Ward RN August 13, 2024 9:16 AM Allergies As of Date: 06/29/2024 (Not on File) Date Reviewed: 05/09/2024 Reviewed by: Shelly Hernandez APRN.CNP - Fully Assessed Reason for Visit: 06/09 iui, negative [Other] pt wants to know if she has to have us before an iu i this [Other] pos preg test [Other] Primary Visit Diagnosis:Treatment plan provided [Z71.9] Prescriptions as of 08/13/2024 - naltrexone 50 mg tablet Take 2 tablets by mouth two times a day. - lansoprazole (PREVACID) 30 mg capsule Take 30 mg by mouth once daily. - acetaminophen (TYLENOL) 500 mg tablet Take 500 mg by mouth every 8 hours as needed for pain. - lamoTRIgine (LAMICTAL) 200 mg tablet Take 200 mg by mouth once daily. - Polysaccharide Iron Complex (PRO FE) 180 mg iron cap Take 2 capsules by mouth two times a day. - docusate sodium (COLACE) 100 mg capsule Take 100 mg by mouth two times a day as needed for constipation. - busPIRone (BUSPAR) 15 mg tablet Take 15 mg by mouth two times a day. - levothyroxine 50 mcg cap Take 50 mcg by mouth every morning. - QUEtiapine (SEROQUEL) 25 mg tablet Take 25 mg by mouth daily at bedtime. Problem List As Of Date: 06/29/2024 (None) Encounter Status:Closed by MARIANNA WARD on 08/13/24 [facility] CNOVon 06-09-2024 CNOV Office Visit (REIBD) JAZ SANDERS ([id number]) 1995 F Date Time Provider Department 06/09/24 11:00 AM IGNACIO GUY During your visit today, we recorded the following information about you: Nichelle Gonzalez 06/09/2024 12:30 PM Signed IUI specimen released to provider Nichelle Colt Pauly June 09, 2024 11:24 AM Nichelle Gonzalez Colt 06/09/2024 12:30 PM Signed IUI Cryobio #: [id number] Washed frozen sample Post: 42 m/ml, 74% Insem#: 15.5 million Vidhi Sheldon MD 06/09/2024 12:02 PM Addendum WHI JAMEL IUI PROCEDURE NOTE Date: 06/09/2024 Primary Proceduralist: Vidhi Sheldon MD Consents and Labels Consent Signed: Informed Consent obtained and on the chart Labels Verified With Patient: Yes Indications: Jaz Sanders, is a 29 year old No obstetric history on file. female here today for intrauterine insemination. IUI # 1. Cycle Day: 13 Last menstrual period: 05/28/2024 [place] Protocol: UNIVERSAL PROTOCOL / SAFETY CHECKLIST Procedure to be Performed: Intrauterine Insemination Sign In: A Moment of CARE was completed. Personnel directly involved with the procedure wore the appropriate PPE (Personal Protective Equipment). Patient/Surrogate Stated/Verified: PATIENT VERIFIED(optional for EMERGENT procedures): Patient name, Date of , Relevant allergies, and The intended procedure Time Out Communication: Intended patient and procedure match the source documents. Consent documented and matches the intended procedure. Sign Out: SIGN OUT (optional for EMERGENT procedures): No specimen collected. Participation of a fellow, resident, medical student, or advanced practice provider student in performing the sensitive examination was discussed with the patient or authorized housing management representative. The patient or authorized housing management representative has agreed to proceed with the sensitive examination. 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 Vidhi Sheldon MD IUI IUI Date: 06/09/24 Partner's Name: Sravan Sanders IUI Time: 11:50 AM EST Partner's : 09/09/1997 IUI #: 1 Partner's Patient's LMP: 05/28/24 Cycle Day: 13 Pre-Procedure Diagnosis: Infertility Post-Procedure Diagnosis: Infertility Cycle Meds: Natural Cycle Trigger: LH Surge Date Catheter Type: Curve catheter Tenaculum: No Catheter passed: Mildly Difficult For difficult catheter pass, add additional details: Recommend using long speculum and having patient come in with full bladder, placing additional anterior angle on catheter Complications: None Sperm Information: Source of Sperm: Donor Fresh/Frozen: Frozen TMC (total motile count of sperm after wash): 15.5 million Cycle reviewed, all questions answered. Pt instructed to take a test in 17 days if no menses and call with results. I performed this IUI. Pt did have some bleeding from the cervix post IUI and with pressure the bleeding from the cervix stopped. Will get pelivc scan here at [facility] if not with this IUI prior pt proceeding with another attmept at IUI. Ignacio Guy MD June 09, 2024 12:30 PM SIGNATURE: Vidhi Sheldon MD PATIENT NAME: Jaz Sanders DATE: June 09, 2024 TIME: 12:01 PM Referring Provider: DANIEL HANNA [[id number]] Allergies As of Date: 06/09/2024 (Not on File) Date Reviewed: 05/09/2024 Reviewed by: Shelly Hernandez APRN.POTATO INSPECTOR - Fully Assessed Primary Visit Diagnosis:Female infertility [N97.9] Prescriptions as of 06/09/2024 - naltrexone 50 mg tablet Take 2 tablets by mouth two times a day. - lansoprazole (PREVACID) 30 mg capsule Take 30 mg by mouth once daily. - acetaminophen (TYLENOL) 500 mg tablet Take 500 mg by mouth every 8 hours as needed for pain. - lamoTRIgine (LAMICTAL) 200 mg tablet Take 200 mg by mouth once daily. - Polysaccharide Iron Complex (PRO FE) 180 mg iron cap Take 2 capsules by mouth two times a day. - docusate sodium (COLACE) 100 mg capsule Take 100 mg by mouth two times a day as needed for constipation. - busPIRone (BUSPAR) 15 mg tablet Take 15 mg by mouth two times a day. - levothyroxine 50 mcg cap Take 50 mcg by mouth every morning. - QUEtiapine (SEROQUEL) 25 mg tablet Take 25 mg by mouth daily at bedtime. 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 - lansoprazole (PREVACID) 30 mg capsule Take 30 mg by mouth once daily. - acetaminophen (TYLENOL) 500 mg tablet Take 500 mg by mouth every 8 hours as needed for pain. - lamoTRIgine (LAMICTAL) 200 mg tablet Take 200 mg by mouth once daily. - Polysaccharide Iron Complex (PRO FE) 180 mg iron cap Take 2 capsules by mouth two times a day. - docusate sodium (COLACE) 100 mg capsule Take 100 mg by mouth two times a day as needed for constipation. - busPIRone (BUSPAR) 15 mg tablet Take 15 mg by mouth two times a day. - levothyroxine 50 mcg cap Take 50 mcg by mouth every morning. - QUEtiapine (SEROQUEL) 25 mg tablet Take 25 mg by mouth daily at bedtime. Problem List As Of Date: 06/09/2024 (None) Encounter Status:Closed by NICHELLE GONZALEZ on 06/09/24 [facility] Coding Summaryon 05-24-2024 Coding Summary HTMLBase 64 ZvvfcwdwVXx6jFc+PGhlYWQ +ZN9AFKTuP72cuLTsnB3yL8 NMTElOSywgQVBQTElOSyIgb aTkPD7esIIxUCNg IC8+NZ3tRZGwGpczyMCgy6V 7xZM1D91obs7iBWakuIY4LS AcUmSrkssld7wmoEe7FSehB mluOyBt FQOusH87TSP4jE88Jm16uFA ypGUbr5uvaVr0ChJiSRVnDG F2hOfpRPago0MrFPBqO99iq ZPdk8V6 OXJbaYpipWNsXfGelTO6mM9 iDKxzyxljl3uiteeqKlt1rn 57eHUkf2O9uHE8N0MujhZ5A GJvbGQg XxxasOLGwW1fpcfjv6jghay nJoBuWZVkAKu4ZLz9DTNxxB jrXgJtJB75PBN7ZKDvwnDgS 2FsLWFs uXjpGoS1z1A3Xc1BF6DRRsl lP0XNZVOLORetfZP+PC90cj 10K6DtTijgLsm6ENUbTNK8o SS0sR4t EORwPAqid1K6pUI8X6AfxkU nnd8xq0yjPKTsCAufQ33ltH Mva7J1QPFhjTS9HDWhvJamA iBzaG93 Oyc+WEGpnCmpx4VmMpaac9o ty0sewPf4AdhsIWJtbwNykG zgZIX3y5MuDy3vUIRtaGZ2b NC0yX3u CfVwLdZ4OOdxZ046FqCmeCB mFeqxP26fL3DsaHY+PHRyPj l8XPZsfGkvDX1xP1EgSIHse mctbGVm kXkgST2bDRIpdfefXGSpeS1 qWTDqR1f2WzSuClA6SZgfO9 JbFKGfjpsjNv12mU8mXtAlL yZ3RYcm Y7NubcP4ZOYdxETaOLhpVER 8A27hh4Q9TDCyRRFoKCS1kE L9rX7bxJadkvcshXEzyUysi mVydGlj XCtqBPqgG431SWEvcOamOtF vZGluZyBEYXRlOiAgMDIvMD YvMjAyNTwvdGQ+YMBpRVN7s WxlPSAn cDDwNQzhIo0bzUkqpYiiHO0 sPPXnovarEHGxzJ2rKHAwgJ MbvTzqUG3zSOKuinlso784Q iAxMHB0 BSAyhXHcX4LlsN2cWdPrMDO lNDGoS1LyxWLhPPsuG632MG jdYsG6DKKtupJzP5XgMXWeq WduOiB0 a8X3Hx2Ln0DucphsS9WfdET wPwTvEbjyPUs2I1ZlUfcryS I+CP05JUOuUZ86IVi1XPN3w WxlPSdi MQMdW1OsqS6vKiEaGNMnJJB kOyc+PHRhYmxlIHdpZHRoPS ghZBNwEyDziAwoBX6jDp5zQ GVyLWNv mKygrVBwPlIqv6rcHZGkLEp nWQ0ukAvjX6KukKF8YLTxr8 w7Wu83J54iO7SqnUC+PGNvb SC1cRL4 nJ0cEjGeHjI2AEgrZ253AmU bySLiTqafp0wea1fvwRg8Ba F1HEGnhjRquUfsHZP6b3WcT a31O33n IHdpZHRoPSIxNSUiIHZhbGl lfv5esI0yRe3+CSCwkCJ6qB Q0vK9nOxOcOfS8CKpoO220P nRvcCIv Qbieo4mrk8evmTg6ExGxNLP vusLqtIsoBXZ8l4HfEq78Z8 CifXpls4XuSrg9ga98tZOjf 6I4kKU4 A6SdGJJhhnxwlGZpyNaaRG7 hUTNazroxEQZncN9fCVHrA5 w2IjMuXsM3SOueR9OakyT9Y GJvbGQg SMYwyKOSvH2gelhnf3amlst jNrTjMZFfHEi4CRh5YXLuoQ neNjEkPXZ0ItT0EQL3tIKmd D7krQcp lzoqfK0gIwe+JHG2lYMfeFT NGI0rNugyrNX+RJArDLM3fA haCQjsBQTodM0nYBYpJ6k1S iAwLjA1 BMjlX7UckhE9KVBupQAfFXF ueAUGtS6lnnvoc9toeyfcXa XgPATwFLg2JLl5YXDxaUeoU iBsZWZ0 LuX8OLG2lTLhdU4vsJfifex atQ3lQjv+TfzhzRkoJUM8HA m3F6AaTww7LAFdzDkmYU7vl GFkZGlu Et5piQnkmLghCE6kSKXgwns hn545ClTnt9vyVICtvBZgOT auTGI2M41si8I7WMWtDODgU ZI7qAK5 qX1twWyxpmnxdMUyvEztyeJ dsZdkMTtoMJbwF124TAFdzS ovNfOqCFv8B7PqRdv4TBPau RnrNV3u iGEqEMkmHg2abJxktGwlTD7 oGROcmjvit467QzMwa0arLV TyfQOrCJntEAR4B89em1C4H CMwMDAw UUS7mYP9mY3nsRufgxjkeAF mdDsgdmVydGljYWwtYWxpZ2 03EELfnAhcDwYzfPb5G8PyY ud3EETi zZtcNV2jiJEjHOnsBt2teUf doZcgTW6kFHSzistir474Rj Qum8gvBHGjhNRiMYgcQPQ5P 10tl9M6 SBEgASQuZJH8aQO4zM8mqSd nbjogbGVmdDsgdmVydGljYW zyLWtiP349ZHSnfQrjDwDyt GllbnQg HFsfKRc0A6UtAvqowYY+PC9 0IYVkET76dZTnwGHxy1froE c7EhJkRFAxADU6iUiaKIvxr 3JkZXIt B72ptSFye2M6CMQvnTdfoEW hBpQcgWR0qU9tCCqettsnm3 hbdnisWrnfc3teus83gA56X 29sIHdp ZHRoPSIzMCUiIHZhbGlnbj0 coT1aCk1+TXXicAB9iQP6wP 3jHRWhXbH4XAolU854WoDbm CIvPjxj d1uuk4scqAx5QvZ4YLGelmF afHgpNGJ2e4XuHv79R17rVY dpZHRoPSIyMCUiIHZhbGlnb g4ziY9k Ii8+VQBxbEB0kBC5dI0hEkV sZzS6EInhV924CaKmoKSkDn vyZ67kM3YhuEZ+BFTpFaj5M CBzdHls BF7oqFBbMFacZw3hODH7OgF qRxUlEVgfU1GdNCYldpigtr pplTS2TAQfGYRtrN69Ed9ka DogMTBw lMFKrL2totcdy7duspzfXlO nFIJeEAg5CHd0KUUjxVxzPv CvUSU5DeO0SQY1dMLgxG4xz Glnbjog iB3sJ6DaVVVttiqbAc60vP2 kDoKjBpK1BGrzQbi+TUNDQU 5OLCBIRUFUSEVSIEVMSVpBQ kVUSDwv dGQ+OJZlCGI3jAaeSQksIQO efP7gFCJjT2p0IaLlTrM4VY rzK6ZeMVUhqapjRx94pC4tC iAwLjA1 ZUzdT2DedxX5GMIutLCtJRv mWTK4H80ah9I6UJUjCMPbTC D7fKE4fG2vsVjzngjnaOPun DsgdmVy zVmwSKfqQPlkM375CUOvoKx xGnXsVoX6RlT8OKO6Y4NwCa p0NPQkxIbtBQ3edVTvYUeoC y4heDzt rOitOT7uUMMfsdonXCFkeN8 lMWNppPRjcLvgLR8hKWIabe btc573CtCbLKI6EBWncAWtI 9XyyF1h EuXdKIJzZNQxO3YurPKrWQu bJ311JNqwLgY2EGKlvkEuP8 OvUMKqyBpyRwU5h2L7Vm6tP SBZZWFy czwvdGQ+FHDeFJN9bRszKEm uDDKasD2pYTNeM3f5HhMrQb C5VSzyU3HsGRClxmqgJv67n J5mPhEy EcP3KVjmU5EoxwM8FKXykNM yNAvxIGZ8F74gk5E6JCVoHU QdHYW8gOF2zZ2rgUvnnfmdv GVmdDsg plEckOpcTKbsWSviT262FHF vcDsnPkZFTUFMRTwvdGQ+PH SiRPB5eHloCDznRSBnxP6bZ XYdZ1e7 TrXoThH4TVwbX3MvNIIzkjk fMi13pE9dKiIlZoI5VJfpK8 KlwlC1OKIioJMrOYcpUMR9E 70dl7U9 FLDeUYXxFND9jYR7mU5jbZk nbjogbGVmdDsgdmVydGljYW dpJYdxT418UQRyjIqjGh0TR H15AL76 Q4XdYqkclFBqfPT+PHRhYmx lIHdpZHRoPScxMDAlJyBzdH qlSN7wOq2sAFIsILHopQuin HNlOiBj z1oyPFXkCHhzHJ8owJvrF5F xtOL3ZYQda8j8Tq27U85oH8 JvdXA+CQXftYC1cZO3rT0yR zAlIiB2 PRepS365FlRfpZVhSwwau3v nu5ojePx6PgKgJHMvzeDqrI muSRM3p3KvMd56K66vQGuyK HRoPSIy BFZmIEWlcUzrek4ebB8lPk4 +BVGttPX4cNY6fQ2yPzCpCn B7IEuyZ444DgPziHOmJtrcX 07hL5Xm dXA+EZOeXka0MUMnvEikLR8 nsVDiDXtiHp6lNEY6DnEcGm XcKUlrC5MaGVNlwtyrqrbbg EI6TXXw FKTxgA09Gh8peSysHi0fJPT iGFQ6PCQouCEuB0HpiY6wVe DoNLDuDHEaZ2YfzGYlEHzaK 246IGxl XmV8AQOaujObP3DwWQDbiRv fDuJ2s0Q1Ce0SyDnsnRIbQD 6zJvSsRTy6V8BkCkh5YRFwp CrySI1b oOWpQRbaKj1ehGvosDucDH2 cEMOkwshhn510KkEjg0luTE ZbkHDxKMvoOCU0Y63rd7T4U CMwMDAw UCE3aDW3nM2zqKtoznalsBO mdDsgdmVydGljYWwtYWxpZ2 12MEAswPhdSgPHAos9U9VpB bl8ONCl eGraUZ2nzIOiRLwxAa6gsOe hiOlxCG6oDYPixgsqa707Dk Zos8dbJBNgqADwSNsoRFZ4E 29jx0M7 RKTsTPGyLQW1rEX7eP3ewSm nbjogbGVmdDsgdmVydGljYW yjWMuqL963VJHobYimMj2QU nq7V7Oo Wfb1RLSgiLpcAQ8odGOgUAj dJd0tzUczvLlsVU6wTWKmct kpv132IrKaz7hnPJIkoYWoY GltZXM7 O41to2J1AJSxKZRvNEJ3jDQ 5oV2omOwjxiappTCqwIaytn CnwAlkCYnkDXfqY247OXHyw DsnPlBh eWVyOjwvdGQ+TL29do92S8D nNldzTpj4QLMkGDS9kPX9yH 9oBSQcGUycl8I0dZK6Q9Kzl aIiow8q b2x (more content not included)... Normal [facility] Progesterone LCon 05-22-2024 Progesterone LC 7.6 ng/mL Invalid Interpretation Code [facility] Comment on above: Result Comment: Foll icular phase 0.1 - 0.9 Luteal phase 1.8 - 23.9 Ovulation phase 0.1 - 12.0 First trimester 11.0 - 44.3 Second trimester 25.4 - 83.3 Third trimester 58.7 - 214.0 Postmenopausal 0.0 - 0.1 Performed At: [facility] [id number] J Luis Gray PhD Ph:[phone] Performed By: #### 3 [id number] ####[facility] (DEFAULT)[address] [place] [address] Provider Orderson 05-21-2024 Provider Orders [id number]#1.00 [facility] Physical Therapy Noteon 04-20 Physical Therapy Note [id number]#1.00O [facility] 25(OH)D3 SerPl-ncon 2023 25-hydroxyvitamin D3 [Mass/Vol] 28.8 ng/mL Low 31.0-80.0 [facility] Comment on above: Order Comment: Speci men Type: BLOOD SPECIMEN Ordering Facility: [facility] Address: [address] [place] [address] Result Comment: Clas sification of 25 [place] Vitamin D status: Deficiency/Insufficiency: < or = 30 ng/ml. Sufficiency/Optimal Levels: 31-80 ng/mL Toxicity: > 100 ng/mL. Test performed by chemiluminescent immunoassay. Performed By: #### 5 5454-3 #### [facility] CLIA [id number] [address] [place] [address] [place] C. trachomatis+N. gonorrhoea e DNA AC+probe Ql (Unsp spec)on 04-02-2024 C. trachomatis rRNA AC+probe Ql (Unsp spec) Not detected Normal Not detected [facility] Comment on above: Order Comment: Speci men Type: BLOOD SPECIMEN Ordering Facility: [facility] Address: [address] [place] [address] Performed By: #### 5 5454-3 #### [facility] CLIA [id number] [address] [place] [address] [place] N. gonorrhoeae rRNA AC+probe Ql (Unsp spec) Not detected Normal Not detected [facility] Comment on above: Order Comment: Speci men Type: BLOOD SPECIMEN Ordering Facility: [facility] Address: [address] [place] [address] Performed By: #### 5 5454-3 #### [facility] CLIA [id number] [address] [place] [address] [place] CARRIER SCREEN, EXPANDEDon 1 06-03-2023 CARRIER SCREEN RESULTS View results in S canned Documents link when available. Normal [facility] Comment on above: Order Comment: Speci men Type: BLOOD SPECIMEN Ordering Facility: [facility] Address: [address] [place] [address] Performed By: #### 5 5454-3 #### [facility] CLIA [id number] [address] [place] [address] [place] CMV IgG Qnon 04-02-2024 CMV IGG QUAL Negative Normal Negative [facility] Comment on above: Order Comment: Speci men Type: BLOOD SPECIMEN Ordering Facility: [facility] Address: [address] [place] [address] Result Comment: No s erological evidence of past exposure to Cytomegalovirus. Cannot exclude recent infection if the specimen collected within 4-6 weeks after infection. Performed By: #### 1 989-3, RIO, 7852-7, 7853-5, VZVG2 #### [facility] CLIA [id number] [address] [place] [address] [place] CMV IgG SerPl-aCncon 024 CMV IgG Qn <0.20 Normal [facility] Comment on above: Order Comment: Speci men Type: BLOOD SPECIMEN Ordering Facility: [facility] Address: [address] [place] [address] Result Comment: The magnitude of the measured result is not indicative of the amount of antibody present. U/mL values are interpreted as follows: Negative <0.6 Equivocal 0.6 to <0.70 Positive >=0.70 Performed By: #### 1 989-3, RIO, 7852-7, 7853-5, VZVG2 #### [facility] CLIA [id number] [address] [place] [address] [place] CMV IgM Qnon 04-02-2024 CMV IGM, QUAL Negative Normal Negative [facility] Comment on above: Order Comment: [place] negrete Type: BLOOD SPECIMEN Ordering Facility: [facility] Address: [address] [place] [address] Result Comment: No s erological evidence of recent exposure to Cytomegalovirus. Performed By: #### 1 989-3, RIO, 7852-7, 7853-5, VZVG2 #### [facility] CLIA [id number] [address] [place] [address] [place] HBV core Ab Ser Qlon 024 HBV core Ab Ql (S) Negative Normal Negative [facility] Comment on above: Order Comment: [place] [facility] Type: BLOOD SPECIMEN Ordering Facility: [facility] Address: [address] [place] [address] Result Comment: No e vidence of current or past infection with Hepatitis B virus. Should recent infection be suspected, repeat testing may be considered 3-4 weeks after this draw. Performed By: #### 1 6933-4, 5195-3, 84252-1, 52622-8 #### [facility] CLIA [id number] [address] [place] [address] [place] HBV surface Ag Ser Qlon 03-18 HBV surface Ag Ql (S) Negative Normal Negative [facility] Comment on above: Order Comment: Speci men Type: BLOOD SPECIMEN Ordering Facility: [facility] Address: [address] [place] [address] Performed By: #### 1 6933-4, 5195-3, 55650-5, 93225-0 #### [facility] CLIA [id number] [address] [place] [address] [place] HCV Ab Ser Qlon 04-02-2024 HCV Ab Ql (S) Negative Normal Negative [facility] Comment on above: Order Comment: Speci [facility] Type: BLOOD SPECIMEN Ordering Facility: [facility] Address: [address] [place] [address] Result Comment: The result suggests no evidence of active infection with Hepatitis C virus. Should recent infection be suspected, repeat testing may be considered 4-6 weeks after this draw. Performed By: #### 1 6128-1 #### [facility] CLIA [id number] [address] [place] [address] [place] HIV 1+2 Ab IA Qlon HIV 1 and 2 Ab IA.rapid Nom (S/P/Bld) Normal [facility] Comment on above: Order Comment: Speci [facility] Type: BLOOD SPECIMEN Ordering Facility: [facility] Address: [address] [place] [address] Result Comment: Test not indicated. Performed By: #### 1 6933-4, 5195-3, 71298-3, 66291-2 #### [facility] CLIA [id number] [address] [place] [address] [place] HIV 1+2 Ab+HIV1 p24 Ag IA Ql Non-Reactive Normal Nonreactive [facility] Comment on above: Order Comment: Speci men Type: BLOOD SPECIMEN Ordering Facility: [facility] Address: [address] [place] [address] Performed By: #### 1 6933-4, 5195-3, 45014-2, 43103-8 #### [facility] CLIA [id number] [address] [place] [address] [place] HIV immunoassay testing algorithm interpretation (S/P/Bld) [Interp] Normal [facility] Comment on above: Order Comment: Speci men Type: BLOOD SPECIMEN Ordering Facility: [facility] Address: [address] [place] [address] Result Comment: No e vidence of HIV-1 or HIV-2 infection. Should recent infection be suspected, repeat testing may be considered 2-3 weeks after this draw. [place] Rev. Code 3701.243(E): This information has been disclosed to you from confidential records protected from disclosure by state law. ???You shall make no further disclosure of this information without the specific, written, and informed release of the individual to whom it pertains or as otherwise permitted by state law. A general authorization for the release of medical or other information is not sufficient for the purpose of the release of HIV test results or diagnoses. Performed By: #### 1 6933-4, 5195-3, 52886-9, 15769-8 #### [facility] CLIA [id number] [address] [place] [address] [place] HbA1c (Bld)on 04-02-2024 Average glucose Estimated from glycated hemoglobin (Bld) [Mass/Vol] 85 mg/dL [facility] Comment on above: Order Comment: Speci men Type: BLOOD SPECIMEN Ordering Facility: [facility] Address: [address] [place] [address] Result Comment: eAG: (Estimated average glucose) is a calculated value from HgbA1c and is housing management representative of the average blood glucose level in the last 2-3 month period. Performed By: #### 5 5454-3 #### [facility] CLIA [id number] [address] [place] [address] [place] HbA1c (Bld) [Mass fraction] 4.6 % Normal 4.3-5.6 [facility] [facility] Comment on above: Order Comment: Linden negrete Type: BLOOD SPECIMEN Ordering Facility: [facility] Address: [address] [place] [address] Result Comment: [place] Diabetes Association guidelines indicate that patients with HgbA1c in the range 5.7-6.4% are at increased risk for development of diabetes, and intervention by lifestyle modification may be beneficial. HgbA1c greater or equal to 6.5% is considered diagnostic of diabetes. Performed By: #### 5 5454-3 #### [facility] CLIA [id number] [address] [place] [address] [place] RUBELLA IGG ANTIBODYon 04-02 RUBELLA IGG AB, QUAL Positive Normal Positive [facility] Comment on above: Order Comment: Linden negrete Type: BLOOD SPECIMEN Ordering Facility: [facility] Address: [address] [place] [address] Result Comment: The result suggests recent or past exposure to Rubella virus or history of Rubella vaccination. Positive result may also be seen due to presence of passively-transferred antibodies. Please correlate with patient's history. Performed By: #### 1 989-3, RUBIGG, 7852-7, 7853-5, VZVG2 #### [facility] CLIA [id number] [address] [place] [address] [place] Reagin and Treponema pallidu m IgG and IgM [Interp]on 04-02-2024 T. pallidum IgG+IgM IA Ql (S) Non-Reactive Normal Nonreactive [facility] Comment on above: Order Comment: Linden negrete Type: BLOOD SPECIMEN Ordering Facility: [facility] Address: [address] [place] [address] Performed By: #### 1 6933-4, 5195-3, 60880-0, 74186-7 #### [facility] CLIA [id number] [address] [place] [address] [place] Reagin+T pallidum IgG+IgM Se rPl-Impon 04-02-2024 Reagin and Treponema pallidum IgG and IgM [Interp] Cannot exclude recent Treponemal infection if specimen collected within 7-10 days after appearance of suspect lesions or 2-3 weeks after an exposure. Clinical correlation is required. [facility] Comment on above: Order Comment: Speci men Type: BLOOD SPECIMEN Ordering Facility: [facility] Address: [address] [place] [address] Performed By: #### 1 6933-4, 5195-3, 19571-1, 83949-1 #### [facility] CLIA [id number] [address] [place] [address] [place] TYPE + SCREEN PRENATALon ABO A Normal [facility] Comment on above: Order Comment: Speci men Type: BLOOD SPECIMEN Ordering Facility: [facility] Address: [address] [place] [address] Performed By: #### T SPN #### [facility] CLIA [id number] [address] [place] [address] [place] Rh Nom (Bld) Positive Normal [facility] Comment on above: Order Comment: Speci men Type: BLOOD SPECIMEN Ordering Facility: [facility] Address: [address] [place] [address] Performed By: #### T SPN #### [facility] CLIA [id number] [address] [place] [address] [place] TYPE AND SCREEN EXPIRATION 04/05/2024 23:59 Normal [facility] Comment on above: Order Comment: Speci men Type: BLOOD SPECIMEN Ordering Facility: [facility] Address: [address] [place] [address] Performed By: #### T SPN #### [facility] CLIA [id number] [address] [place] [address] [place] VARICELLA ZOSTER IGGon 04-02 VARICELLA ZOSTER IGG, QUAL Positive Normal Positive [facility] Comment on above: Order Comment: Speci men Type: BLOOD SPECIMEN Ordering Facility: [facility] Address: [address] [place] [address] Result Comment: The result suggests recent or past exposure to Varicella-Zoster virus or chickenpox vaccination or zoster vaccination. Positive result may also be seen due to presence of passively-transferred antibodies. Please correlate with patient's history. Performed By: #### 5 5454-3 #### [facility] CLIA [id number] [address] [place] [address] [place] [id number] [place] Coding Summaryon 03-20-2024 Coding Summary HTMLBase 64 YkcggfywQDm1fEq+PGhlYWQ +CK0XYJAbB67vvIAqdS4kC6 NMTElOSywgQVBQTElOSyIgb eEqUP1flZJiIGVg IC8+KQ4rXAEoDalvnQOhp0X 4yDF4W74cyc7oOAncsCN9AE GlKtUhqjfpg0bzfYo0EJtnQ mluOyBt FGOokX61MXU2wT87Dz45aCI wgJAoj1xfqJz1HmFtPXXiNP C0iPtwOPack0HtXSUnT60pz BNxl6D7 HHZvmFydsQAtDwPsvAB8xG6 hQUmknnsjf7glebzxMjj6fq 31eIWxx6C4zAU5H2IwacC6O GJvbGQg EoyqnSCEaK6yhdjva7btpxa yVpKbHZOeQNf7OKu6PZXwcQ vcIgPiGC90IMX0IDZfesNvX 2FsLWFs mPzqMwD8a9K5Dv8KJ9BSFqc vD3RBQTMMBHlpfSC+PC90cj 93F6YrDcnaVmv9WUPbUHD3k WS1qV7c CRYhIXlxq2R1vTS9C1WalnN cen5dm4ndHWGtFNfhI29lrA Trw6L6HGIliQX6SMGojFbaR iBzaG93 Oyc+RNVebHpkq7ZnMmofd9v cb5pfdTo6OtfaANKsnsEjlT whYYB7n7EtPr4bOWFyqBC6v OC0jR0e OuAoRlS5MWlmG471ItUzmTK eVttdJ14pF6LzyYX+PHRyPj i7VKWxkZplSA3cC7MgBKZfx mctbGVm vWjyHH9kSXLchgryTYGywU9 kRESqJ7v9QkNyLzW3KWbpP9 SvBVLxlydzUw42yK3cDoXlP xV2YBja N3IavaE9ZKXzsHNyHFgfYHH 4G26ca5U1MGNfTHQsRRN0oJ E1hL6ycXorldyacRGbxZuos mVydGlj JBsuSZsqD435CFQtlQhvOgG vZGluZyBEYXRlOiAgMTIvMD MvMjAyNDwvdGQ+PWNaPDT2u WxlPSAn jFCtDYqrZt4inSwurWmmML4 qWNWozhsrEUZouZ8kBGVuiJ OntDmtKO2rYWMhaiqus856A iAxMHB0 PCUmzEFbS5EbmD5rRjPgMDV tYHSwW3JqyMDxACsgX567DM yuMkP3NNDnebAwD1YvTPMmz WduOiB0 y2X7Cs9Qw2CgestbJ4GpyTV eMhXdWvjvFMk1E9TqBupxcW I+XA44PYNyEU07NSr4ZAO1z WxlPSdi XXDxH6PiuX2mPbHyLXLoQVE kOyc+PHRhYmxlIHdpZHRoPS hkGVElByKzoGmmSF2cQk7fM GVyLWNv zUbluJHmQdKwo0hiWZYcMVq vCB4vaHvmH0HfzWS1RBGsx7 l3Bt85C78yU7MgsST+PGNvb FS0xZB7 hP4rNfGdKcK9NCtnP408WmJ kxCHhEhueo9mmn6wmwKa7Kf D5AHQbcqTsbAmuGCB8i8VjF m03V79n IHdpZHRoPSIxNSUiIHZhbGl hom3lwB4gLu5+HEYgcNR5fR S6wD4uYfSaTtK2APmcQ543O nRvcCIv Vuiuc8gwp4dqvQs6HoOcTJF pflAfrKcoWAD8s4KmAm42D4 LzzUlnh7MmLzr9vl52aKDgi 2S3hIF2 V5QpKWSjrgtzcYLgaKgdUN3 kEAKyicdeBSTvjV5uEFOmX4 f2GnLkXvH9KNmxU5LiniF9Y GJvbGQg ZIAhaSDFoR2ujwibh0ngnky iKvEyDHFoKFl9QXr6NVZqdF acMtRvICC1AuE5SGL7yBTds U4ijVfy xdshoY7mVjm+NHG2eGNwcMU ZFN2sZbkccVB+YHNoGKB8hD vkBDhhSQEomS5zRLBmQ7e8F iAwLjA1 JVchA3TsqzU4QVQygSQqNMQ seGIJmT9rrtocf0ftljdoWy YyDINkVSi3QQm1HOPsrNlxE iBsZWZ0 AdE5XXH5eYAzsB9kcHyzydx iaA8eRlt+RcqapLwzTWI2HN f4P0KfSbr3DSKsmDwbGQ2bc GFkZGlu Xq3ozCqyyOcqWG7aEMUaceh sg399XcOba4zrJPUsdFFnXF lwRUC8C60ny6N7JGIsFXYsZ YR4wIX0 eY0uoKxoicxqjLEuxAkfmhE tkLzfRYhsYTdgF464SKJuoR vkTsNnGLw8S1XyEid1JRRfo FmsZY3a kMBoURzgMi1chKgtiAxuOH4 gNADsoemdd656EmWeq9quDW RofIQxAWbtYMF0R41hn6C2V CMwMDAw GUQ9eQW1yC1eiZbzwrshnOJ mdDsgdmVydGljYWwtYWxpZ2 44ZDPtnPmmIqMmvAv2R0LiE nn1XYIr mBsiNX9idUMrFArkFp2ggIs bhWqjIS4gAMTfehcna732Br Qtz8ciTDBloDBsWFdsSPL8H 63ah0Z5 WWEwSSXpXHN6hDM0vU2fkWu nbjogbGVmdDsgdmVydGljYW drKMyvL715FLLwgRuuRwTaz GllbnQg HNopQJr2C5NlVgluvLH+PC9 2NHWlSQ16oUGriNSqk6sxoN h6YfEyXEWbYDI9pDiuIUzuy 3JkZXIt D05ziHIww1H0YCHzpEpjqBF xAnZccOR0vZ9nBHzvxjwqc0 hfhohrEnggi4sjfc10zS64G 29sIHdp ZHRoPSIzMCUiIHZhbGlnbj0 tlZ3lIx0+NRKswJJ4eMT5jS 5tIXLvWiY5WWsoJ065AdYgg CIvPjxj k1nso7fmzGs2PaS3MUBqtkG grByqQLD0x0UwEk84Q96vIS dpZHRoPSIyMCUiIHZhbGlnb o7aeU6y Ii8+SVOdeKI3mVP9iB3pFjL sUsM5VWrfT911KbNebQJrCq mqF45yU7KcaMQ+NZVnHho1W CBzdHls HR8ftUAeZBkdCj7mRHI2RnS vOqFjNAbwJ6TpCMAglbafat xwqOF1EWNrYCUekF73Gx1gx DogMTBw tMKYzJ7ivydto2yjnsbwHyJ dWRAtXLg4ZOg1JIFkpDyhWy RoVVZ5BwP8MKR1oUUpfE3rj Glnbjog pH6dR9LwFNByvskzTf11iJ0 lNmEvUjY7JJkmVid+TUNDQU 5OLCBIRUFUSEVSIEVMSVpBQ kVUSDwv dGQ+SLCmDPI3cMcwUGoyHOC mvP5dBIXdP7u4VrLrCsN1LS wiR7WmOHRxgahaWf37sE9kX iAwLjA1 AFuyF7AnfyS6KRFlbVVlJCq oUPF4Q52xm0R3HNMzUPFnOM T1bTH7yK7toIvgzdclvDJnj DsgdmVy kKjdITwwVHcbL285HXKzpDi vRqScSfH1FbV3ZUI9J6UbFd u7ZDSfeKveTJ3eaNBlWIofK e7tqWus cLvqZU1cKEGklfirZJBkkW1 bYJZcvYQclCqwAO4vKQNmdz ntc646ZjWiGHU4RFHpgZUhA 6ZmwY0c AkQiCPEgYWMiC1EqyXXdVNy yU018IYtgQzA4TJNfmqNpQ2 BwEJTbyIwfIyQ0g2H8Zk2gW SBZZWFy czwvdGQ+CKJyMVT6sKfiBUa dLWCijL0hEDBtT8p0WeGcZb E2FEddK5AkTCClhgjmPh70s F6xRkMq NpJ3YJgpR8ZyfwK8OUHucSO jFLxmWYH5F96ql5W5LHJlTK QzQTH9hWT3aX7kaNntfteag GVmdDsg gzOjmEpcYMnwKFfqO945BRN vcDsnPkZFTUFMRTwvdGQ+PH BrJTS8nKbpSAybVYFjeG2jV USjM6t1 VaEeDmF1FGkeK5PxNHAebcr tQd38yO8bBvAsRaJ2RYxxY6 EfecT4BUVqdKNpTHhvWPX9T 51rv6S5 XSKuYHBqLIZ6yZY9rA9haNf nbjogbGVmdDsgdmVydGljYW cgFIsuA860ZHVdeIizGsUyW 3Vycmlu JpEInJDzCNWqJQ80VG63ZY0 6C0OcXxkhvDJcqCR+PHRhYm xlIHdpZHRoPScxMDAlJyBzd VhxOB7c Au5dAWQwCHCgbCchwCLxCfS sn9oyPROmMBeaJE9dlDryP9 ClrIH8HMJem0w2Zb95J43qR 3JvdXA+ NESxkIU4wQA8eQ1sHyZwRjA 2LUvsM528FdTgyHVqFxjit0 tip0lbfSw9DuDrQHRoquXma WduPSJ0 t7RwOs52B12mRUamZURtNOR oVQKiHLGjkTgrwe7tsQ5uHr 8+YUHzuHC9yTM1tH0uUzBvT pU9QWlh Q771XrYrcKWzDolgZ07sR5C vdXA+SQDhYon7SAVokJxqHX 1xsNSaENnlLt3sTYP2CdWfY jIwMGlu V7NlOTHhpkgzseyysMO9AVV fJAYtrT65Jc8eoNwtGg5aFL MgIPL2ICQcgUSfB2UsuI7nZ iAjMDAw EUVnH6RedPMiDHevD749NUm iJcR0XCRgzwDoD2QgCILxpG ghTcK8z8F0Ov9SoQrdgPIlL S1jKoJr SOj8X9TnKah6EIRvkXqwAA2 fiEPcSYwiVw7vuWdlrWxkLG 1pXCXociteo098AoKhd6elJ DEwcHQg ZRspKNF4P42ng3H9VXOcKZV aFWH1mAC0pD2qoOurxgtmtP VmdDsgdmVydGljYWwtYWxpZ 246IHRv hFckAwPYSku4I8NkLeh6TMN doMmnGG8dcOBbRIzbFi8jrR aurBxmTL5uYADtqnmzf640P uSmv5at FXQbtGIpTLotRQD1E61ie3A 3UJMeYEMrOTL7zNX4zK5edA lnbjogbGVmdDsgdmVydGljY WwtYWxp R562HNMouDxaNs7ZEqy7M4L oEvf4MNSakZolJO6lwZBxKV vtAv4blPqdqAvgAZ2zCTLdk neda100 MaCaf3hwULXhbVEgMQuzASB 8S51el4Y4KTVaMENzCML0iM C2xK0frQvaxwcjmKKxhRblu mVydGlj DJxxUFofM119CKVlzTosPmB heWVyOjwvdGQ+OV72cz76U9 JaOqejIkf7TEClUCT9jWB4j W6sOTYa [facility] (more content not included)... Normal [facility] Provider Orderson 03-07-2024 Provider Orders [id number] OTGTIFF [facility] .Auto Diff 1on 02-29-2024 Auto [place] % 3 % Normal 04-29 [facility] Comment on above: Performed By: #### 1 [id number], [id number], [id number] #### [facility] (DEFAULT) [address] [place] [address] Baso Abs# 0.0 x10 Normal 0.0-0.2 [facility] Comment on above: Performed By: #### 1 [id number], [id number], 5110652 #### [facility] (DEFAULT) [address] [place] [address] 23872 Basophils/100 WBC (Bld) 0.3 % Normal 0.2-2.0 [facility] Comment on above: Performed By: #### 1 [id number], [id number], [id number] #### [facility] (DEFAULT) [address] [place] [address] 15809 Eos Abs# 0.0 x10 Normal 0.0-0.4 [facility] Comment on above: Performed By: #### 1 [id number], 1507299, 0580472 #### [facility] (DEFAULT) [address] [place] [address]4563 Eosinophils/100 WBC (Bld) 0.1 % Low 0.9-4.0 [facility] Comment on above: Performed By: #### 1 [id number], [id number], [id number] #### [facility] (DEFAULT) [address] [place] [address] Lymph Abs# 1.5 x10 Normal 1.3-2.9 [facility] Comment on above: Performed By: #### 1 [id number], 6372162, 0255357 #### [facility] (DEFAULT) [address] [place] [address] 37848 Lymphocytes/100 WBC (Bld) 16 % Normal 14-48 [facility] Comment on above: Performed By: #### 1 [id number], 5808605, 8149403 #### [facility] (DEFAULT) [address] [place] [address] Billings Abs# 0.3 x10 Normal 0.0-0.8 [facility] Comment on above: Performed By: #### 1 [id number], 6637415, 8596506 #### [facility] (DEFAULT) [address] [place] [address] 41847 Neut Abs# 7.8 x10 Normal 1.5-9.2 [facility] Comment on above: Performed By: #### 1 2847171, 2945390, 3734393 #### [facility] (DEFAULT) [address] [place] [address] 30648 Neutrophils/100 WBC (Bld) 81 % Normal 44-88 [facility] Comment on above: Performed By: #### 1 [id number], 6805224, 6958179 #### [facility] (DEFAULT) [address] [place] [address] CBC w/ Auto Diffon 4 Erythrocyte distribution width (RBC) [Ratio] 13.9 % Normal 11.5-15.0 [facility] Comment on above: Performed By: #### 1 [id number], [id number], [id number] #### [facility] (DEFAULT) [address] [place] [address] Hematocrit (Bld) [Volume fraction] 45.3 % High 33.7-40.4 [facility] Comment on above: Performed By: #### 1 [id number], 0452704, 2713932 #### [facility] (DEFAULT) [address] [place] [address] Hemoglobin (Bld) [Mass/Vol] 15.5 g/dL Normal 11.3-15.9 [facility] Comment on above: Performed By: #### 1 5669761, 6716389, 4699992 #### [facility] (DEFAULT) [address] [place] [address] Man Diff? Auto Invalid Interpretation Code [facility] Comment on above: Performed By: #### 1 [id number], 3026972, [id number] #### [facility] (DEFAULT) [address] [place] [address] MCH (RBC) [Entitic mass] 29 pg Normal 24-34 [facility] Comment on above: Performed By: #### 1 [id number], 3363391, [id number] #### [facility] (DEFAULT) [address] [place] [address] MCHC (RBC) [Mass/Vol] 34 g/dL Normal 26-37 [facility] Comment on above: Performed By: #### 1 7556495, 1507753, 1521917 #### [facility] (DEFAULT) [address] [place] [address] MCV (RBC) [Entitic vol] 86 fL Normal 81-100 [facility] Comment on above: Performed By: #### 1 [id number], 6558041, 1845607 #### [facility] (DEFAULT) [address] [place] [address] Platelet 213 x10 Normal 138-427 [facility] Comment on above: Performed By: #### 1 3660428, 8414268, [id number] #### [facility] (DEFAULT) [address] [place] [address] Platelet mean volume (Bld) [Entitic vol] 6.8 fL Normal 6.3-10.2 [facility] Comment on above: Performed By: #### 1 6176166, 9711610, 9251155 #### [facility] (DEFAULT) [address] [place] [address] 01288 RBC 5.28 x10 Normal 3.70-5.30 [facility] Comment on above: Performed By: #### 1 5768854, 1076501, 8420345 #### [facility] (DEFAULT) [address] [place] [address] 19551 WBC 9.6 x10 Normal 3.5-10.5 [facility] Comment on above: Performed By: #### 1 [id number], 4224149, 9065037 #### [facility] (DEFAULT) [address] [place] [address] 34467 Ferritinon 02-29-2024 Ferritin [Mass/Vol] 20.6 ng/mL Normal 12.0-150.0 [facility] Comment on above: Performed By: #### 1 [id number], 8028956, [id number] #### [facility] (DEFAULT) [address] [place] [address] 94278 Iron Levelon 02-29-2024 Iron [Mass/Vol] 61.0 ug/dL Normal 28.0-170.0 [facility] Comment on above: Performed By: #### 9 [id number] ####[facility] (DEFAULT)[address] [place] [address] [id number] 02-28-2024 O ID: [id number] Author: IGNACIO GUY MD Service: ? 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 rates discussed and use of meds vs natural cycle was discussed. Given her periods are regular I would recommend timed IUI for now and hol doff on the HSG for three cycles. They will meet with COATING MACHINE OPERATOR HELPER to review the IUI checklist and sign consents. I spent a total of 45 minutes on the date of the service which included preparing to see the patient, iocj-[id number] patient care, completing clinical documentation, counseling and educating the patient/family/caregive r, and ordering medications, tests, or procedures. Ignacio Guy MD Normal [facility] CNOVon 02-28-2024 CNOV Office Visit (REIBD) JAZ SANDERS ([id number]) 1995 F Date Time Provider Department 02/28/24 2:00 PM IGNACIO GUY During your visit today, we recorded the following information about you: Weight Height Last Period 98.3 kg 1.803 m 02/18/24 Ignacio Guy MD 03/08/2024 8:45 PM Signed [facility] NEW PATIENT CLINIC NOTE SERVICE DATE: 02/28/2024 SERVICE TIME: 2:17 PM NAME: Jaz Sanders HISTORY OF PRESENT ILLNESS Jaz Sanders is a 28 year old No obstetric history on file. female with infertility for 8 years. They becames aware there was an issue with the sperm one year ago. She took femara for 4 cycles before they were aware that he has essentially azospermia. Then he saw Dr Singleton and took clomid. He had varicocele repair later. Here to discuss use of donor sperm. Pt had gastric sleeve surgery in apr 2020 and lost 225 lbs and her periods have normalized since that time. 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 Menstrual cycle pattern: Regular periods (25-34 days in length) Cycle length (days): 25-27 Days of bleedin-5 OPK use: Yes, able to detect Dysmenorrhea: Rarely Dyspareunia: No STI history: None Last Pap Smear Date: 02/20/24 Last pap outcome: Normal History of abnormal PAP: No, all prior PAP smears have been normal Procedure for abnormal pap smear: None Fertility Evaluations and Treatments: Eval Checklist Results Date Comments HSG Hysteroscopy Laparoscopy [facility] SIS Semen Analysis Ultrasound Other (See comments) LABS/IMAGING: Last scan was in Mar 2022, but not in these records. Pt states she thinks it was normal. PAST MEDICAL HISTORY Diagnosis Date Anemia Anxiety state Bipolar 1 disorder (HCC) Complication of anesthesia Hypothyroid Irregular menses Thyroid disease PAST SURGICAL HISTORY Procedure Laterality Date PAST SURGICAL HISTORY OF shoulder surgery REMOVAL GALLBLADDER 2015 FAMILY HISTORY Problem Relation Age of Onset other (HTN) Maternal Grandfather Diabetes Maternal Grandfather Current Outpatient Medications Medication Sig naltrexone 50 mg tablet Take 2 tablets by mouth two times a day. acetaminophen (TYLENOL) 500 mg tablet Take 500 mg by mouth every 8 hours as needed for pain. busPIRone (BUSPAR) 15 mg tablet Take 15 mg by mouth two times a day. levothyroxine 50 mcg cap Take 50 mcg by mouth every morning. lansoprazole (PREVACID) 30 mg capsule Take 30 mg by mouth once daily. lamoTRIgine (LAMICTAL) 200 mg tablet Take 200 mg by mouth once daily. Polysaccharide Iron Complex (PRO FE) 180 mg iron cap Take 2 capsules by mouth two times a day. docusate sodium (COLACE) 100 mg capsule Take 100 mg by mouth two times a day as needed for constipation. QUEtiapine (SEROQUEL) 25 mg tablet Take 25 mg by mouth daily at bedtime. No current facility-administered medications for this visit. Allergies As of Date: 02/28/2024 (Not on File) Fully Assessed 02/28/2024 _ Partner History Both patient and partner give permission to discuss test results and medication information with the other. Partner gives permission to access EMR. 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 ?: Yes Years together: 8 years Do they have children together?: No Any other Previous Pregnancies?: No Number of cigarettes smoked daily: >10 Marijuana use: Yes, daily Number of alcoholic beverages: Noneper week Pertinent Surgical Hx: varicoceal 12/2023 Fathered children prior relationship: No Partner has had: Semen analysis, Evaluation by urologist, Surgery on bladder, testicles, penis, or prior groin hernia repairs, Cigarette use, Marijuana use, Regular hot tub use Partner had fever in the last 4 months: No Partner has [facility] medical chart: Yes Partner had prior fertility testing or treatment elsewhere: Yes Semen analysis: azospermic _ Assessment and Plan 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 rates discussed and use of meds vs natural cycle was discussed. Given her periods are regular I would recommend timed IUI for now and hol doff on the HSG for three cycles. They will meet with COATING MACHINE OPERATOR HELPER to review the IUI checklist and sign consents. I spent a total of 45 minutes on the date of the service which included preparing to see the patient, [id number] patient care, com (more content not included)... Normal [facility] IGP,APTIMA HPV,AGE GDLNon AGE GDLN ACOG TESTING Note . [facility] Comment on above: TESTS RESULT FLAG UN ITS REF RANGE LAB Clinician Provided Cytology Information Source.............Cervix;Endocervix No. of containers..01 ThinPrep Vial Age Algo ACOG Amaya... FLAG LEGEND: L-Low Normal,H-High Normal,LL-Alert Low,HH-Alert High <-Panic Low,>-Panic High,A-Abnormal,AA-Critical Abnormal Performed at: 01 [facility] [address] [place] [address] Dagmar Love MD, IGP, RFX APTIMA HPV ASCU Note . [facility] Comment on above: TESTS RESULT FLAG UN ITS REF RANGE LAB DIAGNOSIS: 02 NEGATIVE FOR INTRAEPITHELIAL LESION OR MALIGNANCY. Specimen adequacy: 02 Satisfactory for evaluation. Endocervical and/or squamous metaplastic cells (endocervical component) are present. Performed by: Jim Sewell, Global Account Manager ([facility]) . 02 Note: Note 02 The Pap smear is a screening test designed to aid in the detection of premalignant and malignant conditions of the uterine cervix. It is not a diagnostic procedure and should not be used as the sole means of detecting cervical cancer. Both false-positive and false-negative reports do occur. Test Methodology: Note 02 This liquid based ThinPrep(R) pap test was screened with the use of an image guided system. . 02 The HPV DNA reflex criteria were not met with this specimen result therefore, no HPV testing was performed. FLAG LEGEND: L-Low Normal,H-High Normal,LL-Alert Low,HH-Alert High <-Panic Low,>-Panic High,A-Abnormal,AA-Critical Abnormal Performed at: [address] [id number] Dagmar Love MD, Performed at: = - [facility] [id number] Adding Machine Servicer: Dagmar Love MD, Phone: [phone] Performed at: - [facility] [id number] Adding Machine Servicer: Dagmar Love MD, Phone: [phone] BRUSH-SPATULA CERVIX ENDOCERVIX [facility] Coding Summaryon 02-20-2024 Coding Summary HTMLBase 64 FezesnbbVEw1pNw+PGhlYWQ +SW5AIHNqH01uxZAitM1oG9 NMTElOSywgQVBQTElOSyIgb tLhJZ2ugJAkNROl IC8+MF8pRHMsEsujfRFwd8A 8kJU6I01trz5oVQxufTY7XM KqGgUjasbgr6tsaTs3FLspD mluOyBt TVZuhR84FAE1bB89Zy14xGY rqCZcc8wvtXl5AeKpPRByKI K8lGgoIZnzr5UhHSNmN93sy ZDfk6S7 YWEemEmnaEAcNmSebAR4uE7 eEUycnqkxi0oimldgKks4dw 55pQWvu0U5fVK0Y0XcdyD3T GJvbGQg XerdpPLBnZ1pzpacx9fkofs uPdTrAQTwAPd0ZQz0PSVckT grRkUoYV63XLK0GEUkxfGoO 2FsLWFs vVwyQiA8n8B1Wv3SA1WTPvu hU5ZVDKLJEEsjuZW+PC90cj 40C2AoMwjmUgv3CWUmGXB9f HT5yW1w YPDfNLmbv9Q9kBA2S8VmcbL qxp0jb7ulFQHjSMasE01qjH Egv5H1SOUlsKY7PLUsiFboV iBzaG93 Oyc+KOIvsGrrd2BbOizri3k bp4ragFu3FerdVRVkriNenL ofGMC6d1BpTk3eYMAarGP5i UA9mK7n SoHpTwH2PMmvL944GnHtdMT fSuhqE90xD4PouXD+PHRyPj i4CEVcnXreTF1pR2IxUDSja mctbGVm tQadIL4sZKZqxevrLRDtnZ4 sFNOoM5z5CuQpNsX6BLakL3 WiDUGzjjeyLq49gH5aZxMjT pQ9LBlm Z7XvwgA5CDRvhDFkPDvzQBE 7I42tn4P9SWSeWXLvOTZ5sS I7pO4rhGjughvxkZNaeNchn mVydGlj MCfhIXbuM267KMEsnRkcTtS vZGluZyBEYXRlOiAgMTEvMD QvMjAyNDwvdGQ+HUFaGSC6m WxlPSAn rUUcBXueSg4txZkvwKdaRM9 eLROjhvjpYVDukU2pEGItwL TprIzgGX6hIMEdwewti240S iAxMHB0 XEHdaEOrC3JpdY0pCgSiVIR rBMInX6NsqPFzRRntL528AT qdOlG9WUBpziUzE4SjQIHof WduOiB0 k2P9Ht4Jm9TanrruW5NjxLE dAkTjWqexPCz0Y1UeHyweoN I+GE45KCNtNF74ASf5HCP6a WxlPSdi OUMnV1NdsE9rUpSnFCSgLBZ kOyc+PHRhYmxlIHdpZHRoPS eiGYCpJqYgmPhhCE5cLz5mD GVyLWNv aMaalDXaKaZhw9ioRMVsEBa kQZ2xsJocM8DvuKY0OHQsq5 w1Kr15E38eJ6WzpNC+PGNvb PV6dEK9 kB2mBqBsXpB2TNckW464MgN goFVsZdmxe1rii6lwwXn9Gp C8INKnwjWaaRnrZTB7u2KgZ e46E46y IHdpZHRoPSIxNSUiIHZhbGl pka2yjS7lDx4+PQWpzOY9qG B8rU4cKjEmDtY8EDmiF320S nRvcCIv Snvbp2ajj4hykPn1ZkOlTAX ggcLfoNkjFJU8q6YlAf01S9 OfhCivp5YoQov8gs88cEHov 5A1nQS0 P0ErLOSyjrfkaDUorZjrNI7 eHSFqgxsuKUSdsF2mLVIfU0 a0OpGnVrY2HWywS2HhzqD4Y GJvbGQg KEUmgUFXwG3yqmavg5dwxcx wAjNmKKXbNRz5MRw5AYKkcU qiBxEqVTR5MnH1XND6mZGgj O0pxXeb cqrckD0iCgf+PXF6sJHrkNE MUO4gBpyjpEU+LXDpAIW5pE frDRvwQYQikU3cBPShB8v6F iAwLjA1 UCvlP7BelqP9ODMtjCJwIQR zkPJGpM2qvtmyt8hutgzqHm WaSLUyBSx5WUh1CTHshVuhC iBsZWZ0 BiE4WPC0tYIpfP5tcSjhrol hkG2fBko+IzglgWfzYDZ5FI w5F7DuYoi8KXBjlYqbGJ8vc GFkZGlu To4iiEshhBowZX6lNEGrzqy gn814ZwFvb5pzBLMwvIXgVZ rhAPW0V82je4Z0NZNjSPTtK BS1qPC0 gG4ihJtwkcqskAHagQykozF eqXjoGRqoTYbkN711UGCosV qzBzQnEYb7X8CfRwp7IXJuf QsbBS3d cZHmGNtgRg6roPsruPmzFO8 rRNFtamlgh538SkGer4lrLH OdxVHrHHedUES7G29yd1K7B CMwMDAw HSX4mPJ4eS3ggLjsdikcdLW mdDsgdmVydGljYWwtYWxpZ2 56AFZhgLnyKhQprSz7Y4EcQ xv1KFFa lUliIC3fdKRrOKleAd3mwMy uhHkdZP6cQWJqxxonj875Gn Oka5arNQPmrTSmFXhrYNG6X 84hy5G2 UOOkIYUzMIX0eVB6mC8xbQd nbjogbGVmdDsgdmVydGljYW lgIIwoX743GVQclFuyVuYbi GllbnQg SIuyJRg6P1KlNsolmSB+PC9 2PNJlJU95sMLgaUDnf7cmyZ s6JyHdCBAfBMU5mGgaONkze 3JkZXIt T98uwDFyx7E3HMCgaEbhmAM fMcEkjOW9tF0qFDnpcisvl3 awpaflGmcox9cxyw43dL67X 29sIHdp ZHRoPSIzMCUiIHZhbGlnbj0 tlI7iAr3+GXZcpJN6wZP6fQ 0mTKRgWnX7WUgcM040ZfUaw CIvPjxj f2gxy1kisVt0EcZ1JZIeqoF nlIilJEA2h6YbYg44E30fBF dpZHRoPSIyMCUiIHZhbGlnb t0psC5d Ii8+TTZclYC7lRU0gC7mGaQ uJrV2EXuoK959OuInyBQhIr fbP41jF2CfkDP+JLJjWyy4U CBzdHls IT6dmCGzXXugUm6tAQE7UyT qMtBxRZinN6OxYLDlajjpof oujIY0ZWKlTBIgqK70Ba5tv DogMTBw dPZSbY4esiklh8zayypqWbA uFKSeWJz2ZFv8LJHmzJstGv FyIQN6PrX2VEU6aOUlsT0qi Glnbjog aJ8vV4SeQMFbxjkdXi03tK9 fLzMkHtK4WOosOfz+TUNDQU 5OLCBIRUFUSEVSIEVMSVpBQ kVUSDwv dGQ+QHJaMFV5pBvpLZsuLLE bpP1uMBDcJ9l0SvRvRrF1JK deC6RwUADloxenHu14zM6jP iAwLjA1 ZZotC8AaouR2RSRmcXDiEGf eZHR9U12oa8X2ILSyWIKuYF E4dCX0oQ3wvMierzpieODkz DsgdmVy rXicFQudVRawD350QQMwxJf sErHpYrX0WbD8AJS9I4FzVw n0DNFcnPqiGS2yiRAjEWptJ g8xaNsl iExtMO0hZGYyzypyJRUduF5 cIZYwwZSkrFrzST3wKTVwvo fqi226BzMaGPL5IGTjxBOcN 2EjbR7a HzVgYFHaVQSkT2JyhJSaITe pK164BFgeZaZ6FZTxhqVcB2 QvWZLkiDfbBdJ0h1V5Qi0hC CBZZWFy czwvdGQ+OOFyJXE5qAciCXx wMKEjnJ0cNWWpG2b1PvGaTg T8IBeuN0KfBASzhhrwGo01r Q9hEeYu CwO4FXwkA7LpczG2WZQucTP uNDpoCSN5J22fq0F8JKPgLD UnERQ6rDC0zC8xhGvrtlgtt GVmdDsg pfEigDquOSwrLCnhE157DXN vcDsnPkZFTUFMRTwvdGQ+PH MeIMT9cJjsZEyjUEFpsY3oF UYwW4l5 VfPeRaS2MKzxR2KkGSSktup yKj50iV6yWoSnMzN6USluY8 VpbyF5HFOkjNCpNAccYPM6Q 21kq4U7 HJPlUUKkXDN8iTM0eU0fvDu nbjogbGVmdDsgdmVydGljYW gnFYkzJ022CSVccUvyIxLeA 3Vycmlu FsBHbRPpUWUrCP89QJ98LQ3 3O0KhDakdlNViwEL+PHRhYm xlIHdpZHRoPScxMDAlJyBzd ByaHV2j Xm3nWLOnEEDlwBywsMHyMuA uo0jxZEFoWAuvOZ8arJhgT9 UumRN4FBBnj2y0Wk89M83hX 3JvdXA+ HXEnnOO3oGT9wC1oAuKcMgX 4HZzsE840KlQzfBHuAoazg7 wbh4iwrOg7WtRhGERmhvIml WduPSJ0 r1VuNh14N04iGIedMVJmOVX gDHLbKEPdvVjebq6poP5qDh 8+WKTlzUK3vAL7oZ7pCgJgW yO3MWyx D758LfUwiWGuTmnpJ63eQ8L vdXA+PUBgDby8XTXujBajYX 4tmZPlOAxfSr3qKOV0HiDiC jIwMGlu M6GdTHAjmpeseffwiXP6NDD xQDNesS48Yq1pfLrdVg4xWI FdPPO5UWZuiBDeH9JofT0kZ iAjMDAw SKWmB3QstMRrXSwtU596QAd rIdF9LJOazyRzM9NyMWRqcX yfIsD4t5D7Zw8VzOzjnHNxK A4fRtPh HPy5W7KmRxs2WCDvoFrjOQ0 wjWZfNPdxTx7ujFnltOxzQV 9vTVWzrxmfp063MlNqk6otE DEwcHQg GQaoMZH7T99xp9C6SWWxDCQ eZJO6eZT0hL5sgRfnkgbmtB VmdDsgdmVydGljYWwtYWxpZ 246IHRv xKbsOuSJVrt6K4OhVyt5FXR uhXrzWR8epTAjPPdjCv0mfH kyiIndEM3oFQBfqbhdt310C lLtq5bp PLSorBYrKIzlDJB7Y41bi2V 8EDGwKCIqWST2xTP3iC8pfD lnbjogbGVmdDsgdmVydGljY WwtYWxp C214LZYioNdjGc9IEbt7Z7M gWri1JLRhcDcrFE5rhTQaRG hoPt1fnWumaCjaLW0zCELvj hwgx801 KqHok6nbBHSixOThBPzkPYV 9T82xm4Q7TLUsTYYdDST4aQ W3oA5szVvtbaitdUAubFque mVydGlj XPeeKLvbC937WZGyhDufGaJ heWVyOjwvdGQ+JD25qi95L9 SsKczzOhm0PVEdFLF1hGG8i Y6cUNNq [facility] (more content not included)... [facility] Human papilloma virus 16+18+ 31+33+35+39+45+51+52+56+58+59+66+68 DNA [Presence] in [facility] 02-20-2024 HPV 16+18+31+33+35+39+45+5 1+52+56+58+59+66+68 DNA Probe+sig amp Ql (Cvx) Human papilloma virus 16+18+31+33+35+39+45+51 +52+56+58+59+66+68 DNA [Presence] in [facility] . [facility] Comment on above: TESTS RESULT FLAG UN ITS REF RANGE LAB DIAGNOSIS: 02 NEGATIVE FOR INTRAEPITHELIAL LESION OR MALIGNANCY.Specimen adequacy: 02 Satisfactory for evaluation. Endocervical and/or squamous metaplastic cells (endocervical component) are present.Performed by: 02 Edel Sewell, Global Account Manager ([facility]). 02Note: Note 02 The Pap smear is a screening test designed to aid in the detection of premalignant and malignant conditions of the uterine cervix. It is not a diagnostic procedure and should not be used as the sole means of detecting cervical cancer. Both false-positive and false-negative reports do occur.Test Methodology: Note 02 This liquid based ThinPrep(R) pap test was screened with the use of an image guided system.. 02 The HPV DNA reflex criteria were not met with this specimen result therefore, no HPV testing was performed. ------- FLAG LEGEND: L-Low Normal,H-High Normal,LL-Alert Low,HH-Alert High <-Panic Low,>-Panic High,A-Abnormal,AA-Critical Abnormal -----Performed at:[address] [facility] [address] [place] [address] Dagmar Love MD, Bijcofvqp at: =G - [facility] [address] [id number] Director: Dagmar Love MD, Phone: [phone] at: - [facility] [address], [place] [id number] Director: Dagmar Love MD, Phone: [phone] No Panel Informationon 02-19 Reference Lab Test Patient Age Note . [facility] Comment on above: TESTS RESULT FLAG UN ITS REF RANGE LAB Clinician Provided Cytology Information Source.............Cervix;Endocervix No. of containers..01 ThinPrep VialAge Algo ACOG Amaya... FLAG LEGEND: L-Low Normal,H-High Normal,LL-Alert Low,HH-Alert High <-Panic Low,>-Panic High,A-Abnormal,AA-Critical Abnormal -----Performed at:01 =G [address] [address] Dagmar Love MD, .Auto Diff 02-06-2024 Auto [place] % 6 % Normal -12 [facility] Comment on above: Performed By: #### 7 [id number] #### [facility] (DEFAULT) [address] [place] [address] Baso Abs# 0.0 x10 Normal 0.0-0.2 [facility] Comment on above: Performed By: #### 7 [id number] #### [facility] (DEFAULT) [address] [place] [address] Basophils/100 WBC (Bld) 0.3 % Normal 0.2-2.0 [facility] Comment on above: Performed By: #### 7 [id number] #### [facility] (DEFAULT) [address] [place] [address] Eos Abs# 0.2 x10 Normal 0.0-0.4 [facility] Comment on above: Performed By: #### 7 [id number] #### [facility] (DEFAULT) [address] [place] [address] Eosinophils/100 WBC (Bld) 3.4 % Normal 0.9-4.0 [facility] Comment on above: Performed By: #### 7 [id number] #### [facility] (DEFAULT) [address] [place] [address] Lymph Abs# 2.4 x10 Normal 1.3-2.9 [facility] Comment on above: Performed By: #### 7 [id number] #### [facility] (DEFAULT) [address] [place] [address] Lymphocytes/100 WBC (Bld) 34 % Normal 14-48 [facility] Comment on above: Performed By: #### 7 [id number] #### [facility] (DEFAULT) [address] [place] [address] Billings Abs# 0.4 x10 Normal 0.0-0.8 [facility] Comment on above: Performed By: #### 7 [id number] #### [facility] (DEFAULT) [address] [place] [address] Neut Abs# 4.0 x10 Normal 1.5-9.2 [facility] Comment on above: Performed By: #### 7 [id number] #### [facility] (DEFAULT) [address] [place] [address] Neutrophils/100 WBC (Bld) 56 % Normal 44-88 [facility] Comment on above: Performed By: #### 7 [id number] #### [facility] (DEFAULT) [address] [place] [address] CBC w/ Auto Diffon 4 Erythrocyte distribution width (RBC) [Ratio] 14.0 % Normal 11.5-15.0 [facility] Comment on above: Performed By: #### 7 [id number] #### [facility] (DEFAULT) [address] [place] [address] Hematocrit (Bld) [Volume fraction] 41.7 % High 33.7-40.4 [facility] Comment on above: Performed By: #### 7 [id number] #### [facility] (DEFAULT) [address] [place] [address] Hemoglobin (Bld) [Mass/Vol] 14.1 g/dL Normal 11.3-15.9 [facility] Comment on above: Performed By: #### 7 [id number] #### [facility] (DEFAULT) [address] [place] [address]268 Man Diff? Auto Invalid Interpretation Code [facility] Comment on above: Performed By: #### 7 [id number] #### [facility] (DEFAULT) [address] [place] [address]1226 MCH (RBC) [Entitic mass] 29 pg Normal 24-34 [facility] Comment on above: Performed By: #### 7 [id number] #### [facility] (DEFAULT) [address] [place] [address] MCHC (RBC) [Mass/Vol] 34 g/dL Normal 26-37 [facility] Comment on above: Performed By: #### 7 [id number] #### [facility] (DEFAULT) [address] [place] [address]14 MCV (RBC) [Entitic vol] 86 fL Normal 81-100 [facility] Comment on above: Performed By: #### 7 [id number] #### [facility] (DEFAULT) [address] [place] [address] Platelet 196 x10 Normal 138-427 [facility] Comment on above: Performed By: #### 7 [id number] #### [facility] (DEFAULT) [address] [place] [address]34 Platelet mean volume (Bld) [Entitic vol] 6.8 fL Normal 6.3-10.2 [facility] Comment on above: Performed By: #### 7 [id number] #### [facility] (DEFAULT) [address] [place] [address] 16106 RBC 4.84 x10 Normal 3.70-5.30 [facility] Comment on above: Performed By: #### 7 [id number] #### [facility] (DEFAULT) [address] [place] [address] WBC 7.1 x10 Normal 3.5-10.5 [facility] Comment on above: Performed By: #### 7 [id number] #### [facility] (DEFAULT) [address] [place] [address] Ferritinon 02-06-2024 Ferritin [Mass/Vol] 15.8 ng/mL Normal 12.0-150.0 [facility] Comment on above: Performed By: #### 1 [id number], [id number], [id number] #### [facility] (DEFAULT) [address] [place] [address] Iron Profileon 02-06-2024 Iron [Mass/Vol] 72.0 ug/dL Normal 28.0-170.0 [facility] Comment on above: Performed By: #### 1 [id number], [id number], [id number] #### [facility] (DEFAULT) [address] [place] [address] Iron Sat 19 % Low 20-55 [facility] Comment on above: Performed By: #### 1 [id number], [id number], [id number] #### [facility] (DEFAULT) [address] [place] [address] TIBC 384 mcg/dL Normal 250-400 [facility] Comment on above: Performed By: #### 1 [id number], [id number], [id number] #### [facility] (DEFAULT) [address] [place] [address]22 Transferrin [Mass/Vol] 274.6 mg/dL Normal 192.0-382.0 [facility] Comment on above: Performed By: #### 1 [id number], [id number], [id number] #### [facility] (DEFAULT) [address] [place] [address] Coding Summaryon 12-11-2023 Coding Summary HTMLBase 64 AwvilbmiMZc4rWh+PGhlYWQ +AY3VCDGwW71faHWuyO7rN8 NMTElOSywgQVBQTElOSyIgb wYcGF8hrXOnHCPe IC8+NS3dBNApGiyxwEFmy5Z 6dPC8L02wxn8aBIkmzUJ4ZN WsZxVgipfgz7dvqJv4IXjuL mluOyBt YDWdeA07RHR9jF34Lx89dJG yuPDxu7zkaLx4PsOpWIXxMT Z4cAdfMOnlo7SzSBJkF67dg WJrs2T1 CFJllPcspGShMqEtcIS1tG5 hKBzzxvupk6uveforVkj6ve 02gFYun6T9qOO3I8PjkuB2Y GJvbGQg OmoyyTRVbY5jdapsj5sgatb uMrOtSEWmOCv1NHh1EEZflF mvXkGeXP90ZUK9VZEttrXxY 2FsLWFs gVttFaU5m5Y1Jn1WK2UJTge kF9FNVZCKLRrupVS+PC90cj 63T6BdTzieYeb7YFJsSSV6a PV5cA3s JMJvPWpgt1G7eSB1N8ArytE ynj1hs2wbCYJnLOrqC21flK Pof4Y2KHKhwCC1IFLdbFaiW iBzaG93 Oyc+LAUelEmfz1ZzNupjy4x fd2aqmJv4YcxgUVYoybSvuI fbWSV1v9OyAv6wOQQsaSV2a HO5oN2n VbPqFgB9JCqcD058YbVaxMN uCarxC19dS7NwqXT+PHRyPj i9TRRvvTxvMB3mL2GkIVXhl mctbGVm vGokXI9eGJObakviTVSbqT5 iHPUtG4g1JiRnQfE6NTgxA2 HaZGSezrnbYm11eM2pUfKgX cH0NIpn W0RcybG2DTDtcONcPQsqESH 4N11ky9Z6IWMmNKOoBEJ9hK S7bY0bhCloajocoRCnfGrzp mVydGlj BIlgRPvhG769HSDsxZyuGoX vZGluZyBEYXRlOiAgMDgvMj UvMjAyNDwvdGQ+TEFgFMK6w WxlPSAn fKNtJLpbEa9mbFswoKsxQX3 vTEMzieupYLPsmZ4wZOYwjA JltAzdQM6hCDKjlitbz027Z iAxMHB0 PUYhkYIhG1UadZ3cQzCpIPD wCLKyB3JetEKuRShuB409IP xyWxU0GIYglcOlJ6YzNWSlc WduOiB0 v3W8Le4Sh8MaqzmfV1GoqAN uFuKnEsjoSQt5J7TpDgcciN I+LY95UVPvIF59AWg5FTP1g WxlPSdi ABWkW7ArtS7kDhFcOTLtKXZ kOyc+PHRhYmxlIHdpZHRoPS kxDMYaYwEhtVikWS8aQt6gD GVyLWNv eWwuiBFkNoLnq7nmNOTtSCf kUD5utTheB9NdpOD6BXAcm2 o2Ye79I16aF6XteQY+PGNvb AS9hXH9 dO4vVlMmRhD1SOotW542LoQ rhAItGcywa6amv5vbrBp0Jd O1RMWjcnSmgUeqBED5i8KsF a09P60l IHdpZHRoPSIxNSUiIHZhbGl anc3hpU2mGc0+FLXwkQZ7bJ R4iB5eVlOjWoE2UQuhC376C nRvcCIv Xrncg4nnt3jehMw1KjYpIXZ lwtZpjPrpJMR0v6JnKr20Y3 EyyWpzt0DeRzn6ff61pAHpi 2T7qQL9 Z7SjZYAqecbecTTyeVjjJO0 nGNQszzwsURMprE0zYVRsA3 d6YoUaRxA8IOxnB7SdspA1C GJvbGQg KIQxlAGXnN0npmiub1ifogb kKoCwJYDgDUr5QNu8IRJdeZ thYvMcQNC4TbS4CRI4mULsw X9qzNti iublvV9wUsh+FVL5uFEowYZ VNB7cNhlrbVZ+IOJePPX6jF ntTDtvHQCbaX9hMHHcQ7q4H iAwLjA1 SPkaW6GqtaO3CHDwvIThNFC crWFXxS4wjiiwm5kexbukKo QkZOAbMFe1VRs1DWLmvZlfY iBsZWZ0 AgM5EPC0tGOjaH3jvEgylfn mdM6hJvw+JztpmZciGMB0MS z2R0CcKnh7MOMnpIqpGJ1sk GFkZGlu Lz4rbWlbnQrbZK8vTXVddyz oi606ZtXwg1knMDUuoLOkTQ lfINB9V15fi8Z0LOQbIFDvP FI5xYL7 eG8okTgpvtlleLDdhTgkisD joNswIDgbRQimP782KUXlxB otOqUbWCi5I3DuMur1ZSDju GsoRA6a gCGiJZrwRw5lhIxbwYusNQ2 uXCWmvyqbr602XrHib0lrLY JlaUHoPIpgTZX7L95rr8L5J CMwMDAw YQA4oRU3sU6ukPzicwofrXJ mdDsgdmVydGljYWwtYWxpZ2 77NMGlgDvlHxJruWu8Y4EhK dh8ZYVd hKghRX1nxXXwQMdmPa5zjDr noSbgPL8uIQIspurrx364Pg Tgk0nyLZCzfZSlRYigTGW2T 83dn4P1 AKEnQVSkPYE5jSB5pJ8gwLr nbjogbGVmdDsgdmVydGljYW unLPlrB546AOJfxSlpUlOjh GllbnQg UQofXQl1T7VuNluhsOG+PC9 8RMFiRA07dOUqtABye5wvbX p3BjFhXVPeSLQ1cCpsPMpzy 3JkZXIt A72ywDQkx8T5EYXocLsitZX dGgBzwMX7wO0nDZjupfvct8 cssfmpYhccf3lxto19gL52A 29sIHdp ZHRoPSIzMCUiIHZhbGlnbj0 gyQ8qHr7+QKSwhID9qRY1eH 8oRAQaXxQ7DAvaT142LrJwo CIvPjxj e5lze6lqkGz5XgW2VGErqoL ppEejTNO0p3HfRt55M77vUR dpZHRoPSIyMCUiIHZhbGlnb w8jiB1t Ii8+TYVgnYF9jKO7hW2yBxW qRjB5KQrxW950UfKomVXoDq fkD93dN6ScaFW+HHCmJrk2M CBzdHls SZ3jjHZlBVdeTf1dBLC2IsI qXePyUIauY6CwTJLagzoqyx ygxMF2NBUuJBUuwS43Mc1lb DogMTBw ePLBpB7nwodyi7ffywtlEeY gBUGmXCe0WYk0KWWhrWioRs DvDCF9NkV7BZF5nECyhG2gm Glnbjog rZ6nI3IgVKWokbwpOn01cB6 cWaUaXjT9EXimVpu+TUNDQU 5OLCBIRUFUSEVSIEVMSVpBQ kVUSDwv dGQ+WIHqYJY5qQfkETggDKA nsN6sAEXsW9b0NeHhDrR4AT hgG4VbNVAqlqsfZu61nS9eW iAwLjA1 IRupV4OjymB0EQQarVArTLm uCIO5O07ri2L9ZQWjAFHkEE U9xJS0iE1ynLedlgkreQOvv DsgdmVy wNjuEZogZJolA942YSHtwGv tIiJxFrU6QbT8FST9K5DwJa n7KSFhqIffCS8ktQXjAGleM q9ikRid jOnuRQ5wSHLiudteAQIcpZ0 pDJDnvCMivWweRL1oSFKwwb lne266HvXnREM0LZZwkHVcG 4VmgM8q PfEdRWQoPQXhX1FjfDUeWFs lK980VIvlLxV3MADdirGuW6 QcNFKctLrjYpE0w9G5Xc9sU CBZZWFy czwvdGQ+SPPqGXC3rLbwOYq yKUPdlP4jWFPyE3q3MfXbPv X8UCrtL6XvEZVpwvdsAx87w T1jZnRh KkV6OUzfZ4ViyuC3LGQamSC jIMeqYDX5E12el5B2UTWxHE OwHMZ6gSC5kR1tmDtgiyjml GVmdDsg tvCeqHqrQBvwPZyoR175PML vcDsnPkZFTUFMRTwvdGQ+PH BcBLS8cSzsPBmeMMNtnW2vK ZZsA2q1 UmKkQcW5ELgkZ6ClWWPcxbs xVj18mD4yRdVtJuY3LFiqF7 IiluO1OHWgdHTbEGcbLXQ6R 80wj4V1 WXEkPWFqMCM1kBU1lZ9dqZf nbjogbGVmdDsgdmVydGljYW kdDGqkL245VZFliUkbLcRaQ 3Vycmlu GvRGdOEtGFGfUX72RK30SC2 7Q4VuCjtqrBLgnJF+PHRhYm xlIHdpZHRoPScxMDAlJyBzd PyqTL5c Ee2bHXScBEUilJcaxHSiExD xz1euZLAoPXquAW2kiMzuL9 MegBK3OPJij3u8Ak92F62pM 3JvdXA+ ZSKqvPG0jVN9qZ3bVkAyTrL 3UMgnW348BqNngLOfYhvfc9 zjd2cxpYy5KsUeKXJirfZai WduPSJ0 t8WcWr79K88dLZzjNVImVEZ qYZYiJKBquIbnca0qsC4gLk 8+VLUygOL6bDL2cT1zPnRpF rY5QWgy I632WgGxoKJtTzfnT37xD9B vdXA+MWAjSvn5WBGhlWrlVI 0dsSLyVVznRm7tCDW5FgAwS jIwMGlu F3CiPHZxoanakeumdUP7JSS dRULnyS53Mg8hfUovZb4xJA WcKYB0WDFymGMqR9UlmJ6eQ iAjMDAw TACgG2ShmMJwIJlwX782UMn wMbL4ERTukoZsZ7HtWVZcdP reTiI2z8P8Fo6KvQsfqHXmQ X1lObQs WYo9O5CtSou7ONQvxSjxGI5 heGUlJPbyAv9ugJeikIjgCL 9mEKRbhywxd434CiKsy8tfF DEwcHQg RAfrTDB0F32wz7I8WZOhQRW nCKW4oDZ9mP2fcWtitknryA VmdDsgdmVydGljYWwtYWxpZ 246IHRv qAmvKyXYPxa7X4TyRbk4UOA ztBfuLG6hxOByXMidNv3dvX wftRohHM0eBDSnarxqh134O nEse4fc GCXhyQMeQKrpBFR0H99ni2X 1LPDcWKSlPEL9hNW6oY4agV lnbjogbGVmdDsgdmVydGljY WwtYWxp C347SZBeaVefFu4QYyl2T9F iRae3SKFoxRbuAN3wqOLdEB qkFz7cpSlsqEsoTF6aOYQie ndad124 CsKtx1cmVRPhvMJcCIruHNX 5X79zl0G6PRPdQGKkORN3lS O6xG8ooGknhvvknMBawTxpw mVydGlj OBbaKQoyT671OWOktQefQtA heWVyOjwvdGQ+JT31ij91N0 ObOucoXat5ELQmXFW3vSQ8l F8pFKNv JSc (more content not included)... Normal [facility] Amphetamine Screen Ql (U)Ord ered By: Andry Lacy on 12-07-2023 Amphetamines Ql (U) Amphetamines screen Negativ e [facility] Amphetamines Ql (U) Negative Negative [facility] Barbiturates [Presence] in U rine by Screen methodOrdered By: Andry Lacy on 12-07-2023 Barbiturates Screen Ql (U) Negative Negative [facility] Barbiturates Screen Ql (U) Barbiturates [Presence] in Urine by Screen method Negative [facility] Benzodiazepines Screen Ql (U )Ordered By: Andry Lacy on 12-07-2023 Benzodiazepines Ql (U) Positive High Negative [facility] Benzodiazepines Ql (U) Benzodiazepines [Presence] in Urine by Screen method High Negative [facility] Benzoylecgonine [Presence] i n Urine by Screen methodOrdered By: Andry Lacy on 12-07-2023 Benzoylecgonine Screen Ql (U) Negative Negative [facility] Benzoylecgonine Screen Ql (U) Benzoylecgonine [Presence] in Urine by Screen method Negative [facility] Cannabinoids [Presence] in U rine by Screen methodOrdered By: Andry Lacy on 12-07-2023 Cannabinoids Screen Ql (U) Positive High Negative [facility] Comment on above: These are unconfirme d results and should not be used for legal purposes. Drug Cut-Off Concentration: AMPH 1000 ng/mL LUIS ANTONIO 200 ng/mL JOHN 200 ng/mL COCM 300 ng/mL OP 300 ng/mL PCP 25 ng/mL THC 20 ng/mL Cannabinoids Screen Ql (U) Cannabinoids [Presence] in Urine by Screen method High Negative [facility] Comment on above: These are unconfirme d results and should not be used for legal purposes. Drug Cut-Off Concentration: AMPH 1000 ng/mL LUIS ANTONIO 200 ng/mL JOHN 200 ng/mL COCM 300 ng/mL OP 300 ng/mL PCP 25 ng/mL THC 20 ng/mL Drug Screen,Urineon 12-07-19 24 Amphetamine Screen,Urine Negative Normal Negative [facility] Comment on above: Performed By: #### U RDS #### [place] [address] [place] Barbiturate Screen,Urine Negative Normal Negative [facility] Comment on above: Performed By: #### U RDS #### [facility] [address] [place] [address] [place] Benzodiazepines Screen,Urine Positive High Negative [facility] Comment on above: Performed By: #### U RDS #### [place] [address] [place] Cannabinoid Screen,Urine Positive High Negative [facility] Comment on above: Result Comment: Thes e are unconfirmed results and should not be used for legal purposes. Drug Cut-Off Concentration: AMPH 1000 ng/mL LUIS ANTONIO 200 ng/mL JOHN 200 ng/mL COCM 300 ng/mL OP 300 ng/mL PCP 25 ng/mL THC 20 ng/mL PERFORMED BY: [place] [address] PATHOLOGIST [employer]NA[employer] DANICA KUO M.D. Performed By: #### U RDS #### [place] [address] [place] Cocaine Screen,Urine Negative Normal Negative [facility] Comment on above: Performed By: #### U RDS #### [place] [address] [place] Opiate Screen,Urine Negative Normal Negative The [facility] Comment on above: Performed By: #### U RDS #### [place] [address] [place] Phencyclidine Screen,Urine Negative Normal Negative [facility] Comment on above: Performed By: #### U RDS #### [place] [address] [place] HCG ( test) Jared moreira Ql (U)Ordered By: Andry Lacy on 12-07-2023 HCG ( test) Ql (U) Negative [facility] HCG ( test) Ql (U) Urine human chorionic gonadotropin (hCG) detection by immunoassay [facility] HCG,Urineon 12-07-2023 Beta HCG ( test) Ql (U) Negative Normal [facility] Comment on above: Result Comment: PERF ORMED BY: [place] [address] PATHOLOGIST [employer]ING MANAGER DANICA KUO M.D. Performed By: #### U HCG #### [facility] [address] [place] [address] [facility] Opiates [Presence] in Urine by Screen methodOrdered By: Andry Lacy on 12-07-2023 Opiates Screen Ql (U) Negative Negative [facility] Opiates Screen Ql (U) Opiates [Presence] in Urine by Screen method Negative [facility] Phencyclidine Screen Ql (U)O rdered By: Andry Lacy on 12-07-2023 Phencyclidine Ql (U) Negative Negative [facility] Phencyclidine Ql (U) Phencyclidine [Presence] in Urine by Screen method Negative [facility] Alanine aminotransferase [En zymatic activity/volume] in Serum or PlasmaOrdered By: Romeo Santana on 11-28-2023 ALT [Catalytic activity/Vol] 14 U/L Normal 7-52 [facility] Comment on above: Performed By: #### C MP wRFX A1C, CBC #### [facility] [address] [place], [place] [id number] [place] Albumin [Mass/volume] in Ser um or Plasma by Bromocresol green (BCG) dye binding methoOrdered By: Romeo Santana on 11-28-2023 Albumin BCG dye [Mass/Vol] 4.6 g/dL 3.5-5.7 [facility] Alkaline phosphatase [Enzyma tic activity/volume] in Serum or PlasmaOrdered By: Romeo Santana on 11-28-2023 ALP [Catalytic activity/Vol] 41 U/L Normal 34-104 [facility] Comment on above: Result Comment: PERF ORMED BY: [address] [address] PATHOLOGIST [employer] MANAGER DANICA KUO M.D. Performed By: #### C MP wRFX A1C, CBC #### [facility] [address] [place] [id number] [place] Aspartate aminotransferase [ Enzymatic activity/volume] in Serum or PlasmaOrdered By: Romeo Santana on 11-28-2023 AST [Catalytic activity/Vol] 13 U/L Normal 13-39 [facility] Comment on above: Performed By: #### C MP wRFX A1C, CBC #### [address] Automated basophil %Ordered By: Romeo Santana on 11-28-2023 Basophils/100 WBC (Bld) 0.3 % Normal . [facility] Comment on above: Performed By: #### C MP wRFX A1C, CBC #### [address] Automated basophil countOrde red By: Romeo Santana on 11-28-2023 Basophils (Bld) [#/Vol] 0.0 10*3/uL Normal 0.0-0.2 [facility] Comment on above: Result Comment: PERF ORMED BY: [place] [address] PATHOLOGIST [employer]ING MANAGER DANICA KUO M.D. Performed By: #### C MP wRFX A1C, CBC #### [address] Automated blood monocyte cou ntOrdered By: Romeo Santana on 11-28-2023 Monocytes (Bld) [#/Vol] 0.4 10*3/uL Normal 0.0-0.8 [facility] Comment on above: Performed By: #### C MP wRFX A1C, CBC #### [address] Automated eosinophil %Ordere d By: Romeo Santana on 11-28-2023 Eosinophils/100 WBC (Bld) 3.5 % Normal . [facility] Comment on above: Performed By: #### C MP wRFX A1C, CBC #### [address] Automated eosinophil countOr dered By: Romeo Santana on 11-28-2023 Eosinophils (Bld) [#/Vol] 0.2 10*3/uL Normal 0.0-0.45 [facility] Comment on above: Performed By: #### C MP wRFX A1C, CBC #### [address] Automated monocyte %Ordered By: Romeo Santana on 11-28-2023 Monocytes/100 WBC (Bld) 5.8 % Normal . [facility] Comment on above: Performed By: #### C MP wRFX A1C, CBC #### [address] Automated neutrophil %Ordere d By: Romeo Santana on 11-28-2023 Neutrophils/100 WBC (Bld) 52.1 % Normal . [facility] Comment on above: Performed By: #### C MP wRFX A1C, CBC #### [address] Bilirubin.total [Mass/volume ] in Serum or PlasmaOrdered By: Romeo Santana on 11-28-2023 Bilirubin [Mass/Vol] 0.5 mg/dL Normal 0.3-1.0 [facility] Comment on above: Performed By: #### C MP wRFX A1C, CBC #### [address] CMP with reflex to A1Con Albumin [Mass/Vol] 4.6 g/dL Normal 3.5-5.7 [facility] Comment on above: Performed By: #### C MP wRFX A1C, CBC #### [place] [address] [place] GFR/1.73 sq M.predicted MDRD (S/P/Bld) [Vol rate/Area] mL/min/{1.73_m2} Normal [facility] Comment on above: Performed By: #### C MP wRFX A1C, CBC #### [address] Calcium [Mass/volume] in Ser um or PlasmaOrdered By: Romeo Santana on 11-28-2023 Calcium [Mass/Vol] 9.4 mg/dL Normal 8.6-10.3 [facility] Comment on above: Performed By: #### C MP wRFX A1C, CBC #### [facility] [address] [place] [address] Carbon dioxide, total [Moles /volume] in Serum or PlasmaOrdered By: Romeo Santana on 11-28-2023 CO2 [Moles/Vol] 27.8 mmol/L Normal 21.0-31.0 [facility] Comment on above: Performed By: #### C MP wRFX A1C, CBC #### [address] Chloride [Moles/volume] in S betty or PlasmaOrdered By: Romeo Santana on 11-28-2023 Chloride [Moles/Vol] 106 mmol/L Normal 98-107 [facility] Comment on above: Performed By: #### C MP wRFX A1C, CBC #### [address] Complete Blood Count Auto Di ffon 11-28-2023 Mean Corpuscular HGB Conc 33.8 g/dL Normal 32.0-35.0 [facility] Comment on above: Performed By: #### C MP wRFX A1C, CBC #### [address] NRBC% 0.0 /100{WBC} Normal 0-0.5 [facility] Comment on above: Performed By: #### C MP wRFX A1C, CBC #### [place] [address] [place] Creatinine [Mass/volume] in Serum or PlasmaOrdered By: Romeo Santana on 11-28-2023 Creatinine [Mass/Vol] 0.62 mg/dL Normal 0.60-1.20 [facility] Comment on above: Performed By: #### C MP wRFX A1C, CBC #### [place] [address] [place] ECG 12 lead ECGon 11-28-2023 ECG 12 lead ECG [facility] [place] [address] Electrocardiograph Report Signed Patient: Jaz Sanders MR#: [id number] : 1995 Acct:[id number] Age/Sex: 28 / F ADM Date: 11/28/23 Loc: PS Room: Type: [facility] Attending Dr: Romeo Santana DO Ordering Provider: Romeo Santana DO Date of Service: 11/28/2304/10/1539 ECG/ECG 12 lead ECG: Pre op Copies to: Test Reason : Blood Pressure : */* mmHG Vent. Rate : 49 BPM Atrial Rate : 49 BPM P-R Int : 126 ms QRS Dur : 96 ms QT Int : 478 ms P-R-T Axes : 28 47 36 degrees QTcB Int : 431 ms Sinus bradycardia Otherwise normal ECG When compared with ECG of 10-Jun-2022 15:39, No significant change was found Confirmed by Roverto Duran ([id number]) on 11/28/2023 5:20:45 PM Referred By: Electronically Signed By: Roverto Duran Transcribed By: MUS Signed By Roverto Duran MD 11/28/23 1720 Normal [facility] Erythrocyte distribution wid th [Ratio] by Automated countOrdered By: Romeo Santana on 11-28-2023 Erythrocyte distribution width (RBC) [Ratio] 14.0 % Normal 11.9-15.3 [facility] Comment on above: Performed By: #### C MP wRFX A1C, CBC #### [facility] [address] [id number] [place] Erythrocytes [#/volume] in B lood by Automated countOrdered By: Romeo Santana on 11-28-2023 RBC (Bld) [#/Vol] 4.63 10*6/uL Normal 3.60-5.00 [facility] Comment on above: Performed By: #### C MP wRFX A1C, CBC #### [facility] [address] [id number] [place] Glucose [Mass/volume] in Ser um or PlasmaOrdered By: Romeo Santana on 11-28-2023 Glucose [Mass/Vol] 76 mg/dL Normal 70-100 [facility] Comment on above: Performed By: #### C MP wRFX A1C, CBC #### [address] Hematocrit [Volume Fraction] of Blood by Automated countOrdered By: Romeo Santana on 11-28-2023 Hematocrit (Bld) [Volume fraction] 40.1 % Normal 34.0-46.4 [facility] Comment on above: Performed By: #### C MP wRFX A1C, CBC #### [facility] [address] Hemoglobin [Mass/volume] in BloodOrdered By: Romeo Santana on 11-28-2023 Hemoglobin (Bld) [Mass/Vol] 13.6 g/dL Normal 11.8-15.4 [facility] Comment on above: Performed By: #### C MP wRFX A1C, CBC #### [address] Leukocytes [#/volume] correc terry for nucleated erythrocytes in Blood by Automated counOrdered By: Romeo Santana on 11-28-2023 WBC corrected for nucl RBC Auto (Bld) [#/Vol] 6.4 10*3/uL 3.8-11.6 [facility] Leukocytes [#/volume] in Blo od by Automated countOrdered By: Romeo Santana on 11-28-2023 WBC (Bld) [#/Vol] 6.4 10*3/uL Normal 3.8-11.6 [facility] Comment on above: Performed By: #### C MP wRFX A1C, CBC #### [facility] [address] [place] [address] [place] Lymphocytes [#/volume] in Bl ood by Automated countOrdered By: Romeo Santana on 11-28-2023 Lymphocytes (Bld) [#/Vol] 2.4 10*3/uL Normal 1.00-4.8 [facility] Comment on above: Performed By: #### C MP wRFX A1C, CBC #### [facility] [address] [place] [address] [place] Lymphocytes/100 leukocytes i n Blood by Automated countOrdered By: oRmeo Santana on 11-28-2023 Lymphocytes/100 WBC (Bld) 38.3 % Normal . [facility] Comment on above: Performed By: #### C MP wRFX A1C, CBC #### [facility] [address] [place] [address] MCH [Entitic mass] by Automa terry countOrdered By: Romeo Santana on 11-28-2023 MCH (RBC) [Entitic mass] 29.3 pg Normal 24.7-34.3 [facility] Comment on above: Performed By: #### C MP wRFX A1C, CBC #### [facility] [address] [place] [address] MCHC Auto (RBC) [Mass/Vol]Or dered By: Romeo Santana on 11-28-2023 MCHC (RBC) [Mass/Vol] 33.8 g/dL 32.0-35.0 [facility] MCV [Entitic volume] by Auto mated countOrdered By: Romeo Santana on 11-28-2023 MCV (RBC) [Entitic vol] 86.7 fL Normal 80-100 [facility] Comment on above: Performed By: #### C MP wRFX A1C, CBC #### [facility] [address] [place] [address] Neutrophils [#/volume] in Bl ood by Automated countOrdered By: Romeo Santana on 11-28-2023 Neutrophils (Bld) [#/Vol] 3.3 10*3/uL Normal 1.8-7.7 [facility] Comment on above: Performed By: #### C MP wRFX A1C, CBC #### [facility] [address] [place] [address] No Panel InformationOrdered By: Romeo Santana on 11-28-2023 Estimated GFR (CKD-EPI) > 60.0 mL/Min [facility] Creatinine Clearance (Chem N/A [facility] Nucleated erythrocytes [Pres ence] in Blood by Automated countOrdered By: Romeo Santana on 11-28-2023 Nucleated RBC Auto Ql (Bld) 0.0 /100{WBC} 0-0.5 [facility] Platelet mean volume [Entiti c volume] in Blood by Automated countOrdered By: Romeo Santana on 11-28-2023 Platelet mean volume (Bld) [Entitic vol] 6.8 fL Normal 6.3-10.7 [facility] Comment on above: Performed By: #### C MP wRFX A1C, CBC #### [facility] [address] [place] [address] [place] Platelets [#/volume] in Bloo d by Automated countOrdered By: Romeo Santana on 11-28-2023 Platelets (Bld) [#/Vol] 159 10*3/uL Normal 150-450 [facility] Comment on above: Performed By: #### C MP wRFX A1C, CBC #### [facility] [address] Potassium [Moles/volume] in Serum or PlasmaOrdered By: Romeo Santana on 11-28-2023 Potassium [Moles/Vol] 4.2 mmol/L Normal 3.5-5.1 [facility] Comment on above: Performed By: #### C MP wRFX A1C, CBC #### [facility] [address] [place] [address] Protein [Mass/volume] in Ser um or PlasmaOrdered By: Romeo Santana on 11-28-2023 Protein [Mass/Vol] 6.6 g/dL Normal 6.4-8.9 [facility] Comment on above: Performed By: #### C MP wRFX A1C, CBC #### [address] Serum globulin measurement b y calculation (mass/volume)Ordered By: Romeo Santana on 11-28-2023 Globulin (S) [Mass/Vol] 2.0 g/dL Normal [facility] Comment on above: Performed By: #### C MP wRFX A1C, CBC #### [address] Serum or plasma albumin/glob ulin mass ratioOrdered By: Romeo Santana on 11-28-2023 Albumin/Globulin [Mass ratio] 2.3 {ratio} Normal [facility] Comment on above: Performed By: #### C MP wRFX A1C, CBC #### [facility] [address] Serum or plasma anion gap de terminationOrdered By: Romeo Santana on 11-28-2023 Anion gap [Moles/Vol] 10.4 mmol/L Normal 6.0-15.0 [facility] Comment on above: Performed By: #### C MP wRFX A1C, CBC #### [facility] [address] Sodium [Moles/volume] in Ser um or PlasmaOrdered By: Romeo Santana on 11-28-2023 Sodium [Moles/Vol] 140 mmol/L Normal 136-145 [facility] Comment on above: Performed By: #### C MP wRFX A1C, CBC #### [facility] [address] Urea nitrogen [Mass/volume] in Serum or PlasmaOrdered By: Romeo Santana on 11-28-2023 Urea nitrogen [Mass/Vol] 7 mg/dL Normal 7-25 [facility] Comment on above: Performed By: #### C MP wRFX A1C, CBC #### [facility] [address] Coding Summaryon 11-14-2023 Coding Summary HTMLBase 64 YesyxfgtHMb7bFy+PGhlYWQ +GW2ZTSXlZ35krFDxzT7zL3 NMTElOSywgQVBQTElOSyIgb yBhIZ2lkTHdAXZm IC8+AZ7vCLRkOlknsNJyi8A 2rKM6A03wte2bGYbcuSU2RE AhHrAlgepvw3iwsAe4LTsuW mluOyBt XDFrsN42ALP7tZ66Hk30bJR icYOyv3gnuVi2HhNeKKEpUA B3xIioNKhop9UrJHUyF87au RUwp0K5 AMNjaLtvePXsDgTcfVV5iE2 gNJfmvruqf8hjwcipLku4uj 39aGKfy5E8dTK7P1UrlzT7H GJvbGQg PzeixIMSxV4emefoy4gmthb cIuRkLSNrDJg9ROc4ZPFscZ akRtIzHF69XZP5GMWjcaNtT 2FsLWFs rHjcGpR5s9P0Ol2GS6WHQzj fC7LSIQPAUVuefBJ+PC90cj 90B3WdIeamCce2RXFjVOW4m LH8cG6l WEOgPMnnd9S9kRR1I1LtyqI yhb9az7yiUEKxEBejR58ptA Nmr5W2YHKnvMR2PAVzgKosX iBzaG93 Oyc+REQtoGvnd7NyVxjap6b jq5engTm0SjtkXJRxbqNbzE meSLS6q1CjPx4wXRSwcNY1q IP9cU4t QjOqUiV3UHzvU741FwUutYO tKzuiL48oW4QruET+PHRyPj s8JATxwItlIN0iZ1MrUMYyh mctbGVm vPjaEH6cBBZwcugeJZBamS9 gKXPqF4n8HjCaMlI1KGtsP1 TlTXClhhukXl34kW8zIpTuO bW8AIls P9DyjmI7WCJwuGYzTDiaQJS 1B36ck3M1FMSaNFMoIYH1vK S9aO4cfKffdgrwqVIfrLvek mVydGlj ZFkqEEbcM162PYKnhDqsUiO vZGluZyBEYXRlOiAgMDcvMj kvMjAyNDwvdGQ+AXGyAMK4c WxlPSAn xGCeRXdyAj5foAwyoNkiTJ4 yADRwyhnzLSEqwN4qONDnvO MtiOlmKF4bQFDrvnoxv864J iAxMHB0 JMBelVLmY4ZarH3kYzBbNUI rCLEaP0VnwHNkTNcoO576CI soRuB7OQNbvhTiC3EdYUPge WduOiB0 l9F5Ud2Ow1CpnmzbH2TwnFS hRsLmWnfeKXl4B8ReWpfujB I+YF90NWYfTL29VNq0RZA7k WxlPSdi GTNqU4VgfZ1bWkJeOGHhHPK kOyc+PHRhYmxlIHdpZHRoPS qcJAUxUpBqyEjgJU9mYf5eK GVyLWNv nUstnXGsHiJko8moXOKtELn kKX9jiVqoZ0VghPX9JHWpz5 v4Cv92J89tR9IagGG+PGNvb YP0kHZ0 yA2sVxRtSbW3IBzhT627YwS doURyKuphk8ewl0dbnNt9Cj I6OLYrcqBbmYyzNTL7g9ElY f78V52m IHdpZHRoPSIxNSUiIHZhbGl ijt9vhL0fOp6+TKBxdAC4rK G2nM8yWcSxFmB3SHwoR945D nRvcCIv Ckdyk9xhm1bteBx4VkPxTYX ysoKwbAawDIV7j8OpQi01K1 PnyTmgt7DwRmw8us12tBBoi 2P1yVG7 X1FaVUCndihfsYOtnNozDC9 lUYBbmlssKJSamW0uKYLiS4 o3NgWuNbK1CGxzS2GnyqX7M GJvbGQg UXGqxXOHiD0rcelnr0rpkqq hUoKrSTEuNTx6FFc2TGLvqU aoNgDzEFN4TyQ7VNW5hIHbt U2sfBrd ghjonW5gKop+JJK9mJGixXB NSK9gOghqdHD+INApQYK2kL doYYkuXLNjjI8vZCQxZ1e7A iAwLjA1 HViaZ0FfazQ2TLGtzWBeFFV afVCLgB3egulvd6evozhqOp BhUBZrQBq0OHh1ZTShiIkjI iBsZWZ0 IyS1QLT5xXMglK6llPjshxn umG0sHvg+KihdbNghYAC5JX t6W7NvNxn1HPWcoQlaDQ9ag GFkZGlu Ex6xzQrtiLctGD7lGKKocbg yj401YwQvg3ytPPQxyPJjNZ tvUQZ4C70xu7W6SLRfIGEpD KV1dNK8 hT6mbNqxdzecnKOhcWnjjhK ziQlvFHfpZZddI177HSKwsL cbPhWnOGv4D2LkGig0VYAga YueLN5h qKWxNTidCa7kiRpeoUhoIA8 uFLNktgyec077FoSrc8rmPS QqkFWoIMlqBBE9V08jk9D2G CMwMDAw EYM4rEK0nE1elTgvtptsgRL mdDsgdmVydGljYWwtYWxpZ2 47RNXohLtcUfAgcJe2W1CpJ hl2STXn gLlpUG5qsOTgLCpgPr5lcOs ocWiyGS8sQCHrvzyrp868Vs Awj1sjPPWfwJGeIMptBOU5X 96kf6Y7 KAHbRXFzLQT6iPR5mW0nuIu nbjogbGVmdDsgdmVydGljYW dySZobE798UDRmsZqyRsYik GllbnQg UUrcZUp8P3MuIcwjmPA+PC9 3GSCrBP64zPJvgWHxx4plhB y8LkBrBCHjGIZ6eXcsDWpbh 3JkZXIt I20hvGAyy5E5VCIpgXoryRX yCeLpcGC9lD4wCVpdgolbt9 bemcgaYucvp8wysc93vO14Q 29sIHdp ZHRoPSIzMCUiIHZhbGlnbj0 jxE6jAc3+GDYtvXZ4yFE3eH 3fLYAnGcA5JMzdY432YkRdn CIvPjxj l1vos3ykiZb1HsE3IKGzzyQ imLveZHC7f9StDo46T21aSF dpZHRoPSIyMCUiIHZhbGlnb w1dqJ1t Ii8+FMLrfXM8hCW1fQ5iOmH dSoW1KDryA652IiEaeGCeQt jvP00mU1IdmSO+JAWpUkp1U CBzdHls BR1luYLmLHbcFq8wRNV8MjF bQpQvPIlrL8EfTGKpxzcjhm nntXA5OHMxOBVmrM20Jx1fv DogMTBw iNMCdY2kvytth9lmpfccBzZ jCFMpIAo0BVl5SXRssKrkVp DjYQY2QxI1PPM7nUQopV8pp Glnbjog uQ0eA4MsXHTcvdngSb45uA9 qPlOlSxX4AOmcEpf+TUNDQU 5OLCBIRUFUSEVSIEVMSVpBQ kVUSDwv dGQ+XRFnPEC5rWbeFNdlAFX gtE3bJAZjR0m5YtVuIlQ0FQ ouX4XuHQMadawoVz17nH6pP iAwLjA1 YAaxP0FuvtQ0KAQfsAHkGAp cPZW2J80tp8M0KXNyGATwGF N0qZB9sQ0ztIcfuvzpbLNup DsgdmVy pOjeIIacQRokK837TYLufJf zLrZoTlE1KmW0FQC6V4LfIu r7JAVvpLazSP2ylOPaZYnpK f0zaBnk mBmeTU5yZIEtnndjUDGdiZ3 jAWHcuBGnqUqyRA6mBSHxog znm016SaCgOQU9RJAzuLAgS 1WwrF8l OkHfVDNdZCKfX5XesOQnVXv jG462PBwqKsW0HBDvnhMzP5 TxDNIsfVgvPrZ6w3A5Uu8lQ CBZZWFy czwvdGQ+YZZxBSC2nThgIFw kHQFqsC1vWLGcN7u2VaFlPl Z8LOerR1DlNJGjnfthDq21d S6rAoVw UaJ5RWjdZ8AlowZ8MVOhgYJ zJUhyVYL9F25za3G9OKZnVD WeNRZ4lRS6lY2vlDwjnldmh GVmdDsg lfThxHnbDGwdXNvyQ116FEH vcDsnPkZFTUFMRTwvdGQ+PH LgTRF8wPdeEOurPGSlcQ8pC PKnF6p5 WjGnWsF8TAucN5OmDPUrboo jTt82qS2xMjIiMoR3LNpgU9 TosfK9XIFkwBCdDJwdVUU4Z 83ex0L5 GSMmBCDbUUZ4bLV4mA8vwVk nbjogbGVmdDsgdmVydGljYW aqGNloQ968VTBotTeoMgUaS NJcEQ7u eTwvdGQ+PC87cv91F3GgVfa nQsd4FOJzYWG1eDR4nS7cLS QmFGjne5F6hEC4I8MrlhFsp t6ff4vk DWBkFHwhR18vdYVyg2Q3UWJ deDK2ETEzfDnvFaBxhE34Wr c+BBDcpCvjk8HhQrqul4tpj 7zgjYl5 EpJzXHCrdhStrXmhNPS2b1K uEn28R68kBEkfVOJbXNOvRR AaMOSoqUuksz7bbL2aXu3+P GNvbCB3 gTH5jR7oXlAbLzX4OIgkX12 1HsBojSHeCdigf1hkw6droR h2PqXwXJDclwJtlLblEOL0x 9RwQm78 G5IdrTyzi9XgTnb1mz08gYT qy6Y7vMC9T5TmJWBheypoeQ YriLedQG8hRHYmmtmgNNXke X5qVAYb N0e4QoUeUbO7AWuxV9SbhlY 6TPDujGAbSLSwjOPIvS4gji sgf6mgxhigYnBmPRHlYNn3P Ow1ZJKx aLhvWtYfSRJ9PkL9SBC6wHA pbL9ghPpouovyjX7kMei+UG r6u7ilwDHxRB1ktMU8TS05Y U70wRYv x8C2yVW0S2VhSVZzpadanly xsEX5PWCfGYTztA92Nf8nnH xjZc4oXLNxOQW7BAOokEUnF 7IlyC5t RaJsHIUwNQVcK5FtxJYtNBb kF685WCkhRkK9RIDokwJxY3 BxXCXgpHjnYsD1p6U4Bj1XH U20GX82 FA80yJDmc3Y4uCC8J8QdDOW gprsldkawdSC2HUWqXULusB 67Ou7wtOvlZe2fVQWjPJH9X FRpbWVz Y1SalH1fQjYtKPAyKKAmY3P npTXkXUanB772XIarGpM5AM XcdsPhC5GmUDCqhWmnSoM8n 2N5Gj4N Tc19CM96JD72iCMnx2L2rLE 8A8QpQYZwlcrjjtoyeOM7EJ TiBWFclC54Kn9cjEiwCe0dE CAxMHB0 EBUkbLOhJ1ZleE4oPnElAHH lXLLhW0SduVPvBXayI297DI qaBhG6OOMknqJiS6ZkFJCxl WduOiB0 b7A6Yv8HSLszkos1P2RhVxl vdHI+ZU76HACtHK17aZGlkO Sgs9xcoSl4LkIcLYVzBLQ1r WxlPSdi b3J (more content not included)... [facility] Coding Summary HTMLBase 64 MaexxcxzWEq9fRa+PGhlYWQ +ND5WZPRdJ78rvTBmzI9oN2 NMTElOSywgQVBQTElOSyIgb bHyLF2cjPTjXLNl IC8+ST3kVUEvZjiwxCVre6N 7cAY7W53kbk7yJGtvoFB2XQ IpCsGcozsco5bvdXg2KJvrD mluOyBt OAZiiK45HKO5nS37Wx46bUO zgSRee3jokKo8SuCsDEIsES Z0nVnvRXfsg2HlAZJsU05xy ZDqc8M9 WFMmsJdwaVNnPdLitZK1rV0 fHFvlkaxeh3mqbzksMyx3mt 66kVUcg6I6zFN8B7QvqzN0C GJvbGQg JwdfcTYDsI0hohlon4nttju oJwPwRQStMPi3VHx9FUZfmT xsKkMgLA21NKS9VXGjqxUsS 2FsLWFs zZmsZhZ1e4C6Nq0DL2WMNsk jH7AZYKECRQhqvDU+PC90cj 20W1UnYivsLlh4SCPtVBT0h GL7xI6b BWMlLKlyv8Y4zKH7L6VllkP dhv5dv3bnBBIaJOpbQ57sjN Fkt1S2CZAtbWW3NVQrvFzzX iBzaG93 Oyc+YCKjyJpxf4YyZiusm3h tx4gkoOg4PxmyVVVkuuXuaO woXIX1y6UwAf7oEVVtyLA5y SR7lT4i VsNcNwR1ZTqlG076XwEllRY yXrglU82rJ4GdcQW+PHRyPj m3FWUhlNolVH3kC1CpGOVse mctbGVm lMenBF7oORCnajppINBbxA3 lPRSpP4x2EsNeRmV0HSntV9 AvKUYevsgmZy64yB4wOiDfL sZ5LVar R2CahgD1AFGxkIHiHEyqCLH 9T74xf2N6MFNiLZFvYLI2lG R8pB8lmRpviorrrTKuxNxwv mVydGlj SYohFAhzR929CQZywQjeTqE vZGluZyBEYXRlOiAgMDcvMj kvMjAyNDwvdGQ+BPZzKYA7c WxlPSAn dQVpNFxrAc1khEhzxYbdCR2 hLDAbxitbEXBakQ3jMPQjfY JfyDucUJ4eHAKqfbkea890A iAxMHB0 WMMuaGSsY5IftB7vBbCxDYK gBBOrF7LoiALqWMnvK589VP mrEqW9IQMladFfF3WlGJAzz WduOiB0 v3T7Yw3Mm7XmkflwV9XmiXV eYuEvYebeITb7B4VoCcoznJ I+GZ26OUQdBI09ADb6MRH1k WxlPSdi TOOhI9KbsT7lOjUiAXNpEKU kOyc+PHRhYmxlIHdpZHRoPS yzQGLgTpUcpCzbKW8dIx7lL GVyLWNv pIjfrHGbUyTzs9ujKIUoHQy jTV5jtXygM9JrtQW1CMNzh0 l3Wf65L70rA0FvvFY+PGNvb JM5vKK1 pY1wRkMkJoA0VAicI562FcG mmJBnVjoxa9zgk5pnmJk0Ns W7IXPsvjVumRivKGS8b7SrQ m30M94k IHdpZHRoPSIxNSUiIHZhbGl qua5jlS2nXb2+WTLcaLD1dT N9hL5uXxAmZtD1UOhsO031Z nRvcCIv Kvrax2ccg0fsiIw3AjWjEKG ewyNgxJmjWSX1k9FmPq46G1 TprPfli9BgJlk1py25rQWyy 9P1oUH1 Z7LkIKSodxvsfERovAufSI4 tNHOnzxslSVDzhB6eFWXhX3 t4RvKuYtZ6PXvaT8OmddR4W GJvbGQg AUYmaAYXuU7ubigwf8zhtio qKgVcEGKmHXy2TSy8ESHqpC oqRyLeFBF4MnO1BSO1dPSdh E5ulHcw ctmydA8vOww+GEL1rGJgnKW JJN5uDogmlQD+PPVrYHQ2sY zcWJujKKLagK3zJNMkP1w3X iAwLjA1 FKplE7FwubL1OPAexCFoJCM guISEbK4pkspwp9mykojhLb HcGHWqBJh4ZRp5WVRfaKqjP iBsZWZ0 XpU1HLK2cWHweG8dcTvjodl wkT8eNgg+EryhpPstYUH3RQ v0D5BjWul2DHMsoFtzER7vd GFkZGlu El4rhPsckQwiNO6kSLUljow cr661QxEso6gnYPZbwTFuYG knKSZ3L23ww9T7YFIfQYQfN SP6dMD9 gC3smPqgmahtwXRtuBglguZ jrHtpMQfuRXkyJ396POGomX fcCyEvQYl0N5TkZdy1SAKlq RvjEW8c dTXdPSxjRw8mbWbneCefPV5 mHTVbtntsb255IrSct1qxHD FpxNGxIQwaPJF2W22ib6K1Q CMwMDAw JJY7hMT1wS7ceUebfcjkoFE mdDsgdmVydGljYWwtYWxpZ2 14DSNddFuuApQntLl9T5RdZ ih0WLKc qVswMF6joSPjMUnjZz2imLv wzTdmBJ5kUNVtctusa375Kd Xdk5kvEOOrnTHkIIjiQNI6E 84ed3K5 DRAvEXVyMCE6kYM8cS8frPz nbjogbGVmdDsgdmVydGljYW jiGBntQ672LTPhnOnaIjDqw GllbnQg XTwxKYv3S4IfAtbeoOQ+PC9 6CHDcJF32kDHebRHht3xnuJ y9FcXmCOIyKNV2eHizQPwai 3JkZXIt N96ivTJoh1A4IOZlqDldzNC vLdOxkNO2vZ9eBEsfwqrks1 xfhytoWdcgo9eqqm17mY82O 29sIHdp ZHRoPSIzMCUiIHZhbGlnbj0 jzJ3pWv8+MXDukVJ6uRA3dS 0cVNIcLyS5MKelE941CdVyv CIvPjxj l4lvg2crxDa0NkB6OXGsqwT quPffUQX2e8PaXc60I51mCO dpZHRoPSIyMCUiIHZhbGlnb u2ibS4p Ii8+NMRddSC1cIY9pM9wKxC xGuX5FOfcO589PfSsoAXvCo uwE78wF9HgsVF+UPDbQex0E CBzdHls QA3ohYYtYMffJf6fEFS2XdM aDwFdGGyzD4LnKARbjocplx krfOJ4VZDhPKQxlX08Sp0dl DogMTBw hSQGuK4nxpguw7ucsktcVuL nXFZsEGs4KAr8GTSbdQmvKe KxXAZ7VcU5REP6cYKnzY2kl Glnbjog rZ2zY5GlPIMvgxghYb70uW0 sOcTgTvD2XKvqXsr+TUNDQU 5OLCBIRUFUSEVSIEVMSVpBQ kVUSDwv dGQ+EZTvSWK4tIdlDBibJDA anQ5sKIRhX2c4FsTvKoY1GN tkJ9CvDHSlmloqOe72qO2iZ iAwLjA1 BCnqA0OmxzH3DDXfvMBqDWg uIYW4Y31ly4T2GHUsGWCoKM R5cWZ2vO2irVcaaaqeeEZok DsgdmVy bBzrZRlwJEgcE669TKMcbHl zZaSsBjY3VkE4ZBN3Y4AvAw e0HTXlbMvaAK6zpFIuWLooW y6odWnj zGesOA2xUQDwkggkXNWhpW0 lSYWvnUHhcLyiGK2bBYPqzi hum244AiRdFQI0RJEzfBQwM 1AiaW0w StDpVXGrSLYtS4XssWMvZSs hM070FVgzRkL5JYBxutDnN3 EwNQAzjSjvOcS7r3K8Ls0aN CBZZWFy czwvdGQ+AZNwPNV0dNnxJDq rKSLttB3hZAFoI3g1CdFtGa N2LVcvR3MgONUfniqmUb32q W3jYaBo TeY4NHvyD4HktiT7QUKfmKC dCHpxHJH5I71dp1V4HBGhCX WnBXP7jPD5oC1pfFybhenzp GVmdDsg btTqhJomTLpuYUvsJ386USU vcDsnPkZFTUFMRTwvdGQ+PH LrQJA9zRqjACecQLApaB1hH GXsM9t3 QlKxCdN2UEecE6JhYOHcbqa tMq01dW1mBtWsIkP4BUnlL3 RsqvI6GQEezAGrIOfbXTU6K 96yt9G4 OKFwHELnPBN0qDD2mK3rnOy nbjogbGVmdDsgdmVydGljYW icBMacH125SLEozMioNnIoD DXxCA1q eTwvdGQ+TK77vf27L1XkRhf sFdj7HMMsZHA8mBV9zH7gMF BeAItwy5R8oGI0Z6JdddNbv l8jt9pk MZJuRAiiL21csTCdj5V0HCB tfOZ3KYBqsPjrIzXawL73Ju c+XSPshKkyc6JpBkzdp3lzj 4iudVh5 DbWvBKFnbvEjmUpxZAY4c6G mSa81O96qXGyvAJUtVZHeLX OnRYIzfBzhqd8xlU3gFx1+P GNvbCB3 xQN0eC9iOhKqOkX9TQlsT71 0GbRrnUMjQifhc1aij4msbA f9CrQuCXCoaeRekYmrPAF0z 1RdRa58 D4LppYpzy4VlKpj7pf81hLL bq3P3gRD2L5CzVVLkmpbafT NpoDxrGB0qTZEmwuyyKXTrp M5qBQFs R8o6GrTmOuD5WPmbT6LgdfC 7HEKwqCJwRJVgjZVGjP6mic baa8usxpnjVsGuQAWhTMw9D Xj7SHZo fXifKcMeACJ5KvN9FZY5mUP zpD7nuEocdjpihT7bRmn+UG k6k8ybwCPsUS5nvSX4PU44C I58xJYl z7V5kWU7C1MsQNZnrkftpjo nlSO2OJMtQTYrkS98Sr9ifO pyTq8zNCRwOOB8ZUAyuZRsU 1VveM2p LoLoUARzUYFoM4EnmMBiLNr kR019IBilKgN7HQYhsgAmX8 HiRVJarEwfCiD3i7B3Rj2DX B19TA33 FZ91oWLxn6A1lUO0M6PiRLJ ykkujljgigTV1CYOlODMxhS 96Fh4mtCnsKw5wHRAqOIZ2E FRpbWVz J9DedP9oIbLqIDSmSBYkL3W owZDcHUeiF579LEfhUjQ0KI TatvLhK0GyKFWxoXzqWaD5i 9W7Ob1N Wy07AM12PY38lFNlo2B1hAJ 1D6NhRBGerjuovhiyrIC8JX SkBRTswX86Md0krKrxCq4uP CAxMHB0 OXWlbUXhD7CslO4wDiOdUQO xYHGpK3JlqIGeAJjlA134CP yzEyV7JQKkatReJ2FyOGVhu WduOiB0 o4A6My3UIRtnmmq8F5ZaLqj vdHI+JP58VOZlSS56nTDovD Mck8ncuYl7YfWeFEFpCMD0v WxlPSdi b3J (more content not included)... Normal [facility] Provider Orderson 11-09-2023 Provider Orders [id number]#1.00OT [facility] Chlamydia/GC Amplification L Con 11-04-2023 Chlamydia trachomatis, AC LC Negative Invalid Interpretation Code Negative [facility] Comment on above: Performed By: #### 7 [id number] #### [facility] (DEFAULT) [address] [place] [address] Neisseria gonorrhoeae, AC LC Negative Invalid Interpretation Code Negative [facility] Comment on above: Result Comment: Perf ormed At: [facility] [address] [facility] [place], [place] [id number] Ivan Calvin MD Ph:[phone] Performed By: #### 7 [id number] #### [facility] (DEFAULT) [address] [place] [address] Consent Formson 11-03-2023 Consent Forms [id number]#1.00OT [facility] ED Note-Nursingon 11-03-2023 ED Note-Nursing Fluconazole 150mg ta b called into [facility] Patient contacted and notified of the results of her culture and the prescription that was sent for her. Instructions on how to take the medication was given, patient verbalized understanding [facility] .Auto Diff 1on 11-02-2023 Auto [place] % 9 % Normal 12 [facility] Comment on above: Performed By: #### 1 [id number] #### [facility] (DEFAULT) [address] [place] [address]298 Baso Abs# 0.0 x10 Normal 0.0-0.2 [facility] Comment on above: Performed By: #### 1 [id number] #### [facility] (DEFAULT) [address] [place] [address] 68340 Basophils/100 WBC (Bld) 0.2 % Normal 0.2-2.0 [facility] Comment on above: Performed By: #### 1 [id number] #### [facility] (DEFAULT) [address] [place] [address] 42012 Eos Abs# 0.3 x10 Normal 0.0-0.4 [facility] Comment on above: Performed By: #### 1 [id number] #### [facility] (DEFAULT) [address] [place] [address] 74882 Eosinophils/100 WBC (Bld) 9.0 % High 0.9-4.0 [facility] Comment on above: Performed By: #### 1 [id number] #### [facility] (DEFAULT) [address] [place] [address] 66149 Lymph Abs# 0.4 x10 Low 1.3-2.9 [facility] Comment on above: Performed By: #### 1 [id number] #### [facility] (DEFAULT) [address] [place] [address] 54711 Lymphocytes/100 WBC (Bld) 12 % Low 14-48 [facility] Comment on above: Performed By: #### 1 [id number] #### [facility] (DEFAULT) [address] [place] [address] 55582 [place] Abs# 0.3 x10 Normal 0.0-0.8 [facility] Comment on above: Performed By: #### 1 [id number] #### [facility] (DEFAULT) [address] [place] [address] 19701 Neut Abs# 2.4 x10 Normal 1.5-9.2 [facility] [facility] [place] Comment on above: Performed By: #### 1 [id number], [id number], [id number] #### [facility] (DEFAULT) [address] [place] [address] 02031 Neutrophils/100 WBC (Bld) 70 % Normal 44-88 [facility] [place] Comment on above: Performed By: #### 1 [id number], [id number], [id number] #### [facility] (DEFAULT) [address] [place] [address] 59586 C Genitalon 11-02-2023 C Genital Heavy growth of Yeas t No CARLOS performed on this organism No growth of GC at 3 days. 4+ Gram Positive Rods Few Yeast No WBC's seen. Gram Negative Diplococci not seen. Normal [facility] [place] Comment on above: Performed By: #### 7 [id number] #### [facility] (DEFAULT) [address] [place] [address] 25663 CBC w/ Auto Diffon 4 Erythrocyte distribution width (RBC) [Ratio] 13.7 % Normal 11.5-15.0 [facility] [place] Comment on above: Performed By: #### 1 [id number], [id number], [id number] #### [facility] (DEFAULT) [address] [place] [address] 42557 Hematocrit (Bld) [Volume fraction] 40.5 % High 33.7-40.4 [facility] [place] Comment on above: Performed By: #### 1 [id number], [id number], [id number] #### [facility] (DEFAULT) [address] [place] [address] 78375 Hemoglobin (Bld) [Mass/Vol] 13.7 g/dL Normal 11.3-15.9 [facility] [place] Comment on above: Performed By: #### 1 [id number], [id number], [id number] #### [facility] (DEFAULT) [address] [place] [address] 90620 Man Diff? Auto Invalid Interpretation Code [facility] [place] Comment on above: Performed By: #### 1 [id number], [id number], [id number] #### [facility] (DEFAULT) [address] [place] [address] 32242 MCH (RBC) [Entitic mass] 29 pg Normal 24-34 [facility] [place] Comment on above: Performed By: #### 1 [id number], [id number], [id number] #### [facility] (DEFAULT) [address] [place] [address] 68193 MCHC (RBC) [Mass/Vol] 34 g/dL Normal 26-37 [facility] Comment on above: Performed By: #### 1 [id number], 9648792, [id number] #### [facility] (DEFAULT) [address] [place] [address] 59031 MCV (RBC) [Entitic vol] 85 fL Normal 81-100 [facility] [place] Comment on above: Performed By: #### 1 [id number], [id number], [id number] #### [facility] (DEFAULT) [address] [place] [address] 69733 Platelet 106 x10 Low 138-427 [facility] [place] Comment on above: Performed By: #### 1 [id number], [id number], [id number] #### [facility] (DEFAULT) [address] [place] [address] 52070 Platelet mean volume (Bld) [Entitic vol] 7.0 fL Normal 6.3-10.2 [facility] [place] Comment on above: Performed By: #### 1 [id number], [id number], [id number] #### [facility] (DEFAULT) [address] [place] [address] 98008 RBC 4.74 x10 Normal 3.70-5.30 [facility] [place] Comment on above: Performed By: #### 1 [id number], [id number], [id number] #### [facility] (DEFAULT) [address] [place] [address] 89538 WBC 3.5 x10 Normal 3.5-10.5 [facility] [place] Comment on above: Performed By: #### 1 [id number], 9235724, [id number] #### [facility] (DEFAULT) [address] [place] [address] 29377 CMP Standardon 11-02-2023 eGFR Non AA >60 Invalid Interpretation Code [facility] [place] Comment on above: Performed By: #### 1 [id number], [id number], [id number] #### [facility] (DEFAULT) [address] [place] [address] 27440 eGFR AA >60 Invalid Interpretation Code [facility] [place] Comment on above: Performed By: #### 1 [id number], 5708727, [id number] #### [facility] (DEFAULT) [address] [place] [address] 42207 Albumin [Mass/Vol] 4.1 g/dL Normal 3.5-5.0 [facility] Comment on above: Performed By: #### 1 [id number], 0283610, 9006212 #### [facility] (DEFAULT) [address] [place] [address] 25451 Albumin/Globulin [Mass ratio] 1.7 {ratio} Normal 1.4-2.6 [facility] [place] Comment on above: Performed By: #### 1 [id number], 2474372, 9170210 #### [facility] (DEFAULT) [address] [place] [address] 81298 Alk Phos 40 IU/L Normal 32-91 [facility] [place] Comment on above: Performed By: #### 1 [id number], 9176072, 9756891 #### [facility] (DEFAULT) [address] [place] [address] 10152 ALT [Catalytic activity/Vol] 20.0 U/L Normal 14.0-54.0 [facility] [place] Comment on above: Performed By: #### 1 [id number], 7091712, 9147126 #### [facility] (DEFAULT) [address] [place] [address] 65042 Anion gap [Moles/Vol] 9.5 mmol/L Normal 5.0-19.0 [facility] Comment on above: Performed By: #### 1 [id number], 2611722, 0347093 #### [facility] (DEFAULT) [address] [place] [address] 66760 AST [Catalytic activity/Vol] 19 U/L Normal 15-41 [facility] [place] Comment on above: Performed By: #### 1 [id number], 9241399, 7207186 #### [facility] (DEFAULT) [address] [place] [address] 13745 Bili Total 0.7 mg/dL Normal 0.3-1.2 [facility] [place] Comment on above: Performed By: #### 1 [id number], 3854056, 8467911 #### [facility] (DEFAULT) [address] [place] [address] 73540 Calcium [Mass/Vol] 8.4 mg/dL Low 8.9-10.3 [facility] Comment on above: Performed By: #### 1 [id number], 7366077, 6809653 #### [facility] (DEFAULT) [address] [place] [address] 27529 Chloride [Moles/Vol] 109 mmol/L Normal 101-111 [facility] Comment on above: Performed By: #### 1 [id number], 3748309, 6571055 #### [facility] (DEFAULT) [address] [place] [address] 47942 CO2 [Moles/Vol] 21 mmol/L Normal 21-32 [facility] [place] Comment on above: Performed By: #### 1 [id number], 3581489, [id number] #### [facility] (DEFAULT) [address] [place] [address] 74900 Creatinine [Mass/Vol] 0.71 mg/dL Normal 0.60-1.30 [facility] Comment on above: Performed By: #### 1 [id number], 3691125, 3721644 #### [facility] (DEFAULT) [address] [place] [address] 23671 Globulin (S) [Mass/Vol] 2.4 g/dL Normal 1.5-4.3 [facility] [place] Comment on above: Performed By: #### 1 [id number], 9454043, 6124528 #### [facility] (DEFAULT) [address] [place] [address] 24755 Glucose [Mass/Vol] 95.0 mg/dL Normal 74.0-118.0 [facility] Comment on above: Performed By: #### 1 [id number], 7808568, 0851601 #### [facility] (DEFAULT) [address] [place] [address] 34937 Osmolality 270 mOsm/L Invalid Interpretation Code [facility] [place] Comment on above: Performed By: #### 1 [id number], 2355374, 3815447 #### [facility] (DEFAULT) [address] [place] [address] 99498 Potassium [Moles/Vol] 3.5 mmol/L Low 3.6-5.1 [facility] Comment on above: Performed By: #### 1 [id number], 2849464, 9422965 #### [facility] (DEFAULT) [address] [place] [address] 33076 Protein [Mass/Vol] 6.5 g/dL Normal 6.5-8.1 [facility] Comment on above: Performed By: #### 1 4841314, 4724972, 2238426 #### [facility] (DEFAULT) [address] [place] [address] Sodium [Moles/Vol] 136.0 mmol/L Normal 136.0-144.0 [facility] Comment on above: Performed By: #### 1 3883051, 2395054, 8123433 #### [facility] (DEFAULT) [address] [place] [address] Urea nitrogen [Mass/Vol] 7 mg/dL Low 8-26 [facility] [place] Comment on above: Performed By: #### 1 1901657, 9870297, 7961077 #### [facility] (DEFAULT) [address] [place] [address] 81461 Urea nitrogen/Creatinine [Mass ratio] 9.8 mg/mg Normal 4.6-16.2 [facility] [place] Comment on above: Performed By: #### 1 [id number], 1948896, 9417393 #### [facility] (DEFAULT) [address] [place] [address] Abdomen/Pelvis w/ Contras ton 11-02-2023 CT Abdomen/Pelvis w/ Contrast EXAMINATION: CT Abdomen/Pelvis w/ Contrast, 11/02/2023, 9:30 AM EDT HISTORY: Abdominal pain, acute, nonlocalized COMPARISON: 03/30/2021 TECHNIQUE: CT scan of the abdomen and pelvis was performed with IV contrast. CT dose reduction technique was used, including Automated Exposure Control. FINDINGS: Lung bases are clear. There is a moderate hiatal hernia. Evidence of prior gastric surgery. The abdominal aorta is of normal caliber. Spleen, pancreas, adrenal glands are satisfactory. Gallbladder is surgically absent. No focal liver parenchymal lesions. Kidneys enhance symmetrically bilaterally. There is no hydronephrosis and no evidence of obstructive uropathy. The unopacified loops of small bowel and colon including the appendix are normal. There is no free air, free fluid, or obstruction. IMPRESSION: No acute intra-abdominal pathology. Final Dictated by: Kaela Monteiro DO Dictated DT/TM: 11/02/23 9:43 Signed (Electronic Signature): Kaela Monteiro DO 11/02/23 3:37 pm Technologist: Adama DUFFY [facility] ED Clinical Summaryon 2023 ED Clinical Summary [facility] [place] Emergency Department [address] [place] [address] ED Clinical Summary PERSON INFORMATION Name: JAZ SANDERS Age: 28 Years Sex: FEMALE : 1995 MRN: Acct#: Visit Reason: Abdominal pain; Nausea; FLANK/HIP PAIN, FEVER Arrival: 11/02/2023 07:57:28 Discharge: 11/02/2023 13:31:00 LOS: 000 05:34 Check In: 11/02/2023 07:57:28 Checkout:11/02/2023 13:31:00 Address: [address] [place] [address] PCP: Amanda Ford CNP PROVIDER INFORMATION Provider Role Assigned Unassigned Danita Dowling RN ED Nurse 11/02/2023 08:07:27 Narda Phillips MD ED Provider 11/02/2023 08:11:16 VITALS INFORMATION Vital Sign Triage Latest Temperature Tympanic Temperature Temporal Artery Pulse Rate 107 bpm 98 bpm O2 Sat 99 % 99 % Respiratory Rate 20 br/min 18 br/min Blood Pressure /63 mmHg /63 mmHg MEDICAL INFORMATION Medications Given: Medication Dose Route acetaminophen 1000 mg Oral ondansetron 4 mg IV Push iohexol (Omnipaque 350 100 ml) 350 mg IV Push Allergy Information: NSAIDs PHYSICIAN DOCUMENTATION DISCHARGE INFORMATION: Discharge Disposition: Home Discharge Location: Home PATIENT EDUCATION INFORMATION Instructions: Musculoskeletal Pain Follow-Up: With: Address: When: Amanda Ford CNP [address] [place] [address] [id number] Within 3 to 5 days DIAGNOSIS: 1:Hip pain Patient Understands: Yes - Patient/family/caregive r verbalizes understanding of instructions given Comment: [facility] ED Patient Summaryon 024 ED Patient Summary [facility] Emergency Department [address] [place] [address] 72382 PATIENT DISCHARGE INSTRUCTIONS Patient Information Name: JAZ SANDERS Age: 28 Years Date of : 1995 [facility]: [id number] Reason For Visit: Abdominal pain; Nausea; FLANK/HIP PAIN, FEVER Arrival Time: 11/02/2023 07:57:28 Primary Care Physician: Amanda Ford CNP Attending Physician: Narda Phillips MD Comment: Visit Diagnosis: Diagnoses This Visit Abdominal pain ([id number]) Hip pain (M25.559) Nausea ([id number] ) The Pharmacy at [facility] is open Tuesday through Tuesday from 9A to 6P and Tuesday and Tuesday from 9A to 5P Prescription Information: If you have been given a prescription for narcotics, seek immediate medical attention if you have any difficulty breathing or any sudden status changes such as confusion and sleepiness. If you or anyone you know is experiencing suicidal thoughts, mental health, alcohol and/or drug addiction problems; contact the [facility] 08/11 Crisis Hotline -text 4hope to 741741. If you received any narcotics, sedation, or any other medication that causes drowsiness for the next 24 hours, unless otherwise directed: ? Do not drive a car. ? Do not operate machinery such as power tools, lawn mowers, drills, sewing machines, or stoves ? Avoid alcoholic beverages and drugs for allergies, nerves, or sleep ? Do not make important personal or business decisions or sign any legal documents With: Address: When: Amanda Ford CNP [place] [address] Within 3 to 5 days Medication Information: The exam and treatment you received today in the [facility] Emergency Department were for an urgent problem and are not intended as complete care. It is important for you to follow up with a doctor, nurse practitioner, or physician?s bilingual office assistant for ongoing care. If your symptoms become worse or you do not improve as expected and you are unable to reach your usual health care provider, you should return to the Emergency Department, we are available 24 hours a day. For those patients who have received Radiology results, the interpretation of your X-ray as given to you by our Emergency Department physician is only a preliminary report. The Radiologist will review your films and if there is a change in the diagnosis you will be notified by phone. Please make sure you have provided a working phone number so we can reach you if necessary. In the event that you had a lab culture while you were a patient in the Emergency Department, you will be notified by phone if there is a need to change your antibiotic. Please make sure you have provided a working phone number so we can reach you if necessary. [facility] [place] Emergency Department has provided you with a complete list of medications post discharge. 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 Any specific questions regarding your chronic medications and dosages should be discussed with your primary care physician(s) and/or pharmacist. New Medications [facility] [address] [place], [place] [id number], [phone] cyclobenzaprine (cyclobenzaprine 10 mg oral tablet) 1 tab(s) Oral (given by mouth) 3 times per day as needed for spasm for 3 Days. Refills: 0. lidocaine topical (Lidoderm 5% topical film) 1 patch(es) Topical (on the skin) every day for 7 Days. Refills: 0. Additional medications on your home medication list not specifically addressed. Please contact the ordering physician if you have questions about these medications. albuterol (ProAir HFA 90 mcg/inh inhalation aerosol) 2 puff(s) Inhale (breathe in) every 4 hours as needed for wheezing. Refills: 1. ALPRAZolam (Xanax 0.5 mg oral tablet) 1 tab(s) Oral (given by mouth) 2 times per day. PRN. ascorbic acid (Vitamin C 500 mg oral tablet, chewable) 1 tab(s) Chewed every day. busPIRone (busPIRone 15 mg oral tablet) 1 tab(s) Oral (given by mouth) 2 times per day. ciprofloxacin (ciprofloxacin 500 mg oral tablet) 20 Milligrams/Kilogram Oral (given by mouth) Every 12 hours scheduled time for 10 Days. cyclobenzaprine (!-Flexeril) 10 Milligram Oral (given by mouth) once a day (at bedtime). PRN. docusate (docusate sodium 100 mg oral capsule) 1 cap(s) Oral (given by mouth) every day as needed for constipation. PRN. ferrous sulfate (ferrous sulfate 325 mg (65 mg elemental iron) oral tablet) 1 tab(s) Oral (given by mouth) 2 times per day. Empty stomach if possible. lamoTRIgine (lamoTRIgine 200 mg oral tablet) 1 tab(s) Oral (given by mouth) every day. TAKE 1 TABLET BY MOUTH ONCE DAILY FOR 30 DAYS. lansoprazole (lansoprazole 30 mg oral delayed release capsule) 1 cap(s) Oral (given by mouth) every day. MUST MAKE APPT FOR REFILLS. Refills: 0. lidocaine topic (more content not included)... [facility] Extra Green11-02-2023 Tube Collected Yes Invalid Interpretation Code [facility] [place] Comment on above: Performed By: #### 1 [id number], [id number], [id number] #### [facility] (DEFAULT) [address] [place] [address] Test Urine U Preg Negative [facility] Comment on above: Performed By: #### 7 [id number] #### [facility] (DEFAULT) [address] [place] [address] U Preg Internal Control Pass [facility] Comment on above: Performed By: #### 7 [id number] #### [facility] (DEFAULT) [address] [place] [address] 11450 UA Iiqpp1wr 11-02-2023 UA Bacteria Trace [facility] Comment on above: Order Comment: Urina lysis Microscopic order added on by [employer] Expert Rules system. Performed By: #### 7 [id number] #### [facility] (DEFAULT) [address] [place] [address] UA Mucous 1+ [facility] Comment on above: Order Comment: Urina lysis Microscopic order added on by [employer] Rules system. Performed By: #### 7 [id number] #### [facility] (DEFAULT) [address] [place] [address] UA RBC None Seen [facility] Comment on above: Order Comment: Urina lysis Microscopic order added on by [employer] Rules system. Performed By: #### 7 [id number] #### [facility] (DEFAULT) [address] [place] [address] 29608 UA Squam Epi Few [facility] Comment on above: Order Comment: Urina lysis Microscopic order added on by [employer] Rules system. Performed By: #### 7 [id number] #### [facility] (DEFAULT) [address] [place] [address] 81225 UA WBC None Seen [facility] Comment on above: Order Comment: Urina lysis Microscopic order added on by [employer] Rules system. Performed By: #### 7 [id number] #### [facility] (DEFAULT) [address] [place] [address] UA w Culture if Ind Standard on 11-02-2023 Breakpoint UA [facility] Comment on above: Performed By: #### 7 [id number] #### [facility] (DEFAULT) [address] [place] [address] Color (U) Dark Yellow [facility] Comment on above: Performed By: #### 7 [id number] #### [facility] (DEFAULT) [address] [place] [address] Culture? Not Indicated Invalid Interpretation Code [facility] [place] Comment on above: Result Comment: Resu lt created by rule GL_MAGR_ADD_UA_CULT Performed By: #### 7 [id number] #### [facility] (DEFAULT) [address] [place] [address] Glucose (U) [Mass/Vol] Negative [facility] Comment on above: Performed By: #### 7 [id number] #### [facility] (DEFAULT) [address] [place] [address] 26968 Ketones Ql (U) TRACE [facility] Comment on above: Performed By: #### 7 [id number] #### [facility] (DEFAULT) [address] [place] [address] 70517 Micro? Indicated Invalid Interpretation Code [facility] [place] Comment on above: Result Comment: Resu lt created by rule GL_MAGR_ADD_UA_MICRO Performed By: #### 7 [id number] #### [facility] (DEFAULT) [address] [place] [address] 66238 UA Bilirubin MODERATE Abnormal [facility] [place] Comment on above: Performed By: #### 7 [id number] #### [facility] (DEFAULT) [address] [place] [address] 76292 UA Blood Negative Normal NEGATIVE [facility] [place] Comment on above: Performed By: #### 7 [id number] #### [facility] (DEFAULT) [address] [place] [address] 72392 UA Clarity SL CLOUDY Abnormal CLEAR [facility] [place] Comment on above: Performed By: #### 7 [id number] #### [facility] (DEFAULT) [address] [place] [address] UA Leuk Est Negative Normal NEGATIVE [facility] [place] Comment on above: Performed By: #### 7 [id number] #### [facility] (DEFAULT) [address] [place] [address] 39034 UA Nitrite Negative Normal NEGATIVE [facility] [place] Comment on above: Performed By: #### 7 [id number] #### [facility] (DEFAULT) [address] [place] [address] 76904 UA pH 6.0 Normal 5-8 [facility] [place] Comment on above: Performed By: #### 7 [id number] #### [facility] (DEFAULT) [address] [place] [address] 93788 UA Protein 30 Abnormal NEGATIVE [facility] [place] Comment on above: Performed By: #### 7 [id number] #### [facility] (DEFAULT) [address] [place] [address] 75522 UA Spec Grav >=1.030 Normal 1.001-1.035 [facility] [place] Comment on above: Performed By: #### 7 [id number] #### [facility] (DEFAULT) [address] [place] [address] 81518 UA Urobilinogen 1.0 mg/dL Normal 0.2-1.0 [facility] [place] Comment on above: Performed By: #### 7 [id number] #### [facility] (DEFAULT) [address] [place] [address] 16251 Urine Source Clean Catch Normal [facility] Comment on above: Performed By: #### 7 [id number] #### [facility] (DEFAULT) [address] [place] [address] Wet Mount.on 11-02-2023 Wet Mount. Negative Normal [facility] [place] Comment on above: Performed By: #### 7 [id number] #### [facility] (DEFAULT) [address] [place] [address] Coding Summaryon 10-26-2023 Coding Summary HTMLBase 64 VgyruaizQXc3jHu+PGhlYWQ +FT5NZFJmB26qaGIccC8sK2 NMTElOSywgQVBQTElOSyIgb jVuFR8jxUEiJBMa IC8+TF9sBEJdPxfjuJFos8A 2fRR8F78tfn2uGWnjdPM6OG UjOwNdykyle4uoiTy4KAuuX mluOyBt IXGliA28PGS0xI60Qf81gHP qyAQgp6xvnMi4AnNrYSNuBS U1fTzuLBqqv8EjZUItY36op AKfl5G0 NEMxyMfvpVOkVaDbrPN6dG2 iCFwlchtmz3azzkypYvm2qo 02gFPxr9O3eUK7C3YmpvO4A GJvbGQg JxwuzTNDcM6idxsvv5jrxdx oVgHyOOVnQVg2SBa4XIKkiV yhThVmKI96LJJ8CVKqwrCxF 2FsLWFs zVeiWiN4s4L3Ht6CZ7FZAxq gA6VFQHBNQWmrhBX+PC90cj 16H5YxDlwxRlq9SOZwJKK8q JN8pU8w UIJaQZilq9M5vKV7W1McplT adz5gz5ogVKRiVShgI44naC Myd8K6WBDeaSC7YPBluNzrB iBzaG93 Oyc+YYPmuImef2ThSfiod0e re1idhIj9BnugDVWbjuRxsI qaHGR4m2ZfOs0aLNGuiFV9i DX6qV7h VsCqPpD3WKaiX261LvMbjRG yBagoC27tD9JwwHE+PHRyPj q4UBHpoZhuXP8xF7ScWBIud mctbGVm sTsePU6xCLMugtjvJNJvhQ6 qOFEhH7z9PxWiZtQ2TOdaS2 EvCNKmowmcUl93gQ4kImNpU vX6AIkv C3GkjqQ4CJNnpHInXWxbXYU 5Y38rr3O0BKUgHNWeJGX8zT Q7nX7bfGtvacdsoCWfdLqzu mVydGlj COkhFIybD477PMBpxTzuUwB vZGluZyBEYXRlOiAgMDcvMT AvMjAyNDwvdGQ+JPStLHQ9f WxlPSAn nKXaCUwiUi3feChewVvbZO0 fFPGphsikQDPawI2kAOXrtW UwvOqeMG1eLFDjvjpsn892V iAxMHB0 WOUgtTAsV1ZqiH2mHcOySVI aNDGtR4EvyAOwFMpfE815YY upYcN2NTNabuHuS9XtTJZzr WduOiB0 t3W7Qz7Ta3KjpyitG2CkhXP qDqZjAoolLFb3K7WoAfcusK I+WO84NPQsYR44LSg3LVL6k WxlPSdi FZHbV1GviH2bOtKpUHAuRSX kOyc+PHRhYmxlIHdpZHRoPS nkQQHdNxUeuTrkDA3bEa0jZ GVyLWNv jPjcnVRcDsBdj2nlEQZeXXo hCU7elUbqT5XzmUA5ASAbn8 m6Ac15X62aE4YwxJD+PGNvb CZ8uEU2 iA7cGyAuSpY9DVyjE989XvJ vbLNoXpjhb6nzo3wjiVh4Lt T7SSPgrkRzdPxfKGJ0v0UhD l12H13b IHdpZHRoPSIxNSUiIHZhbGl kcd3idZ8kJo1+HPGyoOH1hD S6xD1dZkAqVwR1IZhlM366F nRvcCIv Qygpp5mvo1cyxFs8NqByAFI utmNrfErxCOI6a3YcYs11L9 IepQoro9WsUan3ys86sUInf 6V0cND0 W3YxXUKjtkdxhIAruLqnVM6 nOENqvljxTGQtkG3kWMIuB4 r7TdVwFiN7LTmsP4UtikT5A GJvbGQg YSRlyQZIcI7wzolhf8npbnr qSwIdBRYhFWv3PNt8MHGswM yrCgBvIZW3JmQ7IAN5uGXyv B0ewBip fgbaqX1lIpk+AZO3oXEgvVY QDQ8bZlhdnMD+HELwMVH2jA fqQLlhNYNwmZ3xFSJdW3b4V iAwLjA1 YHinH1PuhcZ5RYZziYPqTKO bzTWVtF7wskqjo8ngkdfdQc DdVPCfIQw1OMk2HLBfkJiqG iBsZWZ0 DbS2IEJ2aHLapV7kaNqjqvy biL4dDbj+KagcaGslVLO8UZ l4B5FlHag7EGAcbQmmGA1cs GFkZGlu Bz0xcObcyPlzMV9lQFEvihj bg835LpGpl3fmRDSwgGMpOZ wnXGQ4J78db8P9KZCiIFWpB WD5bTU3 xJ6qdHoyskaxfLAznAaytfR myZseFQsiIYllQ358YRSwvC zgZsNqUIz8W4TtOjl6YKObt BljAW0w oTDnACevTv5huLjlxXfcKU1 lDRByglbtn421HkBud3sxZC TntCPhPQvwQVP6U08bm5L5P CMwMDAw RJG2aIX0bS8boExbmexflRK mdDsgdmVydGljYWwtYWxpZ2 19ICKphEybOiYazLu6B7ChH no7IWAr bWtnMU4gyXGtHTiwSu5nqKn bvZlyZS9oHVUrakyeg175Ol Eif2vfVUQlhSQnRYfoRGA0U 16rp0C4 VFDoLZRfNRF1cCA3gX7rmRc nbjogbGVmdDsgdmVydGljYW nmMNekI965IKTgjYsdAaZor GllbnQg OHweLFj6P5WpUbozzOF+PC9 0JWTnUX36vPLoaSRvx7ygnE s8LaYjFTFfRJW1dSekIEnfo 3JkZXIt W91kvBKjc4D9KFRivCfrpHY uTlJynGH5fX5dSXlnamkun8 ulfmenHonpc8jhvt31yL83D 29sIHdp ZHRoPSIzMCUiIHZhbGlnbj0 qxU6jVa8+XOKccZA3sNH7oJ 2sGHGwPlH5JRrkM824UrTji CIvPjxj g2okb5qgwNy0TvM7QBIfmdL ppRicECT1f2JsBg19Q32qFR dpZHRoPSIyMCUiIHZhbGlnb u7ziC0r Ii8+OJUwmEY6gJR7rE7cEcC rBzX2IKbuO632EgDlyASqFd yhU91cV5TfhMT+IPDlEka1N CBzdHls OG4baRPwBPssSu4gOCS9MoV iToBlJRlcP0WwUMCijsjgog ltrPS7QJRgHGWxgU75Fo6jq DogMTBw lUMHgE4zywowv1xlfsetQeP iCLOaYMs3VEv8FNRivBmfUk CzCZQ8BiV4DGS6dMPcyN9dj Glnbjog iL7lG1XeBNSdpobxOp96fS3 yYlGvZrD4HRkcLrm+TUNDQU 5OLCBIRUFUSEVSIEVMSVpBQ kVUSDwv dGQ+OKQxCKX9jObzGGkeZHX qiB0ePMMeO3d1LaNuKoV9AF kgH1VtPDGcapgwWz79iL9qX iAwLjA1 NSmvZ0YclyY2OITsbPDnFEg hQJJ3Y78ht5V3OTMoUIXxRH W8yCX9kX0pxQoargizqZSdu DsgdmVy dFpsSEnbLVyhJ933JODvhBb tPiRwKyL5ZmF7IOE0H5SuLq r9YXRwoIjeOT3xaAKkEBxuK q5lwArd aWqjMX9aJGIcdbsiKNDksW9 gEOHrvOAwhUqwYX4nNPRivn yfk548WmWhADR3BFFblUFhL 6MuuX6d OuYiTNEdIPJoK7IbbSNxHEh uZ348VMvsQeH2TBEvchBgG1 NiDWDfnJwvQnX7t9T2Dn5fW CBZZWFy czwvdGQ+TWCxGXY4uPrvJOp xPHFssV8nVJZtZ4y3SrBtKk H4TQprL8NpQYWbooegXj63o Z8aVdZi YpW6IGhnA4IrrrY8ORUwlVF kQBdpIVY9W02nk9R6VOYcWA BxOCG0nQP6qV2uwVtibyyhh GVmdDsg lkKmyFfyUIolBZukD581YWS vcDsnPkZFTUFMRTwvdGQ+PH AdMDC0dEkkTBhzXFNskA5uV BNxL5g7 MkDdCqQ9MXpaO1EvCEXgufa qTe57zO8uKuRkOkB9JOjwU2 XkiaK0ZBNtgLBuJLzvTMM6M 00gh5X4 BSGnLHLuHIG0cWF4tC1bsZd nbjogbGVmdDsgdmVydGljYW nmMIlrD827QQUpeKxeWxLeT 3Vycmlu LqULhIOuXAFkDE12KL97WT5 5C5OdWrrylVHmjVZ+PHRhYm xlIHdpZHRoPScxMDAlJyBzd CsyLE9s Lg2sXPTsUGFpeWukqYVtFvF ib9otZLUwMZriVM8flNubV2 VglOL7RLBjt7i6Cx50N66yF 3JvdXA+ HEGsxGI4zQQ7uQ3cBkZoHlL 9TAzrJ904MiMuuWImVoemi2 oak4ovqRk4EaIaWOPtyuIzp WduPSJ0 y5EuBv26S14qXTlhWBHtUPW bENDzMIJyhDolvu8xkJ1aAu 8+OEYwbYR5lNQ0yE2lQqKmR cK5VItz A521MpVvoCNoBbbpX27pB1Q vdXA+DIGuTvq5VISvnEddOS 9wzTMeKOdqMx5iYGZ4KiVxE jIwMGlu V0ReDKIlyjpncacifZW9FGO fIEEofQ89Xn5ttRoqVk8rOL KhMID5LZXdzBAhE4DtjK3zS iAjMDAw XKJfI2CfwUElCCmqF666ROv oAfG5NWGyzzBcP2OjSPYiqX hrRjR6r1S6Hy9NsBxmoIEcO R5oVxDd UAl0M5TtMnd8RAIjsYhkKI2 skZYhDJdiBa2fdNvlwVbaEP 5oBWVnovabh583HrDoq4rpS DEwcHQg SNdaGBQ0G25ky5V6WMJsSZR fKGL8bKQ8tS9fjMoikpnclU VmdDsgdmVydGljYWwtYWxpZ 246IHRv tNvcWbXVEni8P4BgWkh6DIC xhEehCI9zgFRwHBrwRv0ioI snyDxpFS0hYEMuykxnm567Q mIca7lc BSYkxYMjILjhBEG9W99qs2Z 1ORShUPXmIOG2lKT0iW1szS lnbjogbGVmdDsgdmVydGljY WwtYWxp H755TJSuzLrpMy1GWyk2R4G xJwz6JWSqzDoqLY5qzVVlAN plOp9cjQyeaUlxEO6sRKOpz spla663 ReKal5eeMWXepDIbQCobWVW 1A50lv9B8BEVwNUPwMCM4xA A8uF7akRkpatzivNEajQbxt mVydGlj CPmxBKliR680GPDdoTdjBuY heWVyOjwvdGQ+QC14ow13J4 QzXuaoEat1FZUlQOJ9aDA9d R9eSTPr [facility] [place] [facility] (more content not included)... Normal [facility] Basophils Auto (Bld) [#/Vol] on 09-15-2023 Basophils (Bld) [#/Vol] 0.0 x10 0.0-0.2 [facility] Basophils/100 WBC Auto (Bld) on 09-15-2023 Basophils/100 WBC (Bld) 0.3 % 0.2-2.0 [facility] Eosinophils/100 WBC Auto (Bl d)on 09-15-2023 Eosinophils/100 WBC (Bld) 2.7 % 0.9-4.0 [facility] Erythrocyte distribution wid th Auto (RBC) [Ratio]on 09-15-2023 Erythrocyte distribution width (RBC) [Ratio] 14.1 % 11.5-15.0 [facility] Hematocrit Auto (Bld) [Volum e fraction]on 09-15-2023 Hematocrit (Bld) [Volume fraction] 41.4 % High 33.7-40.4 [facility] Hemoglobin [Mass/volume] in Bloodon 09-15-2023 Hemoglobin (Bld) [Mass/Vol] 14.0 g/dL 11.3-15.9 [facility] Iron binding capacity [Mass/ volume] in Serum or Plasmaon 09-15-2023 Iron binding capacity [Mass/Vol] 405 mcg/dL High 250-400 [facility] Iron saturation [Mass Fracti on] in Serum or Plasmaon 09-15-2023 Iron saturation [Mass fraction] 12 % Low 20-55 [facility] Laboratory - Chemistry and C hemistry - challengeon 09-15-2023 Iron [Mass/Vol] 48.0 ug/dL 28.0-170.0 [facility] Transferrin [Mass/Vol] 289.2 mg/dL 192.0-382.0 [facility] Leukocytes [#/volume] correc terry for nucleated erythrocytes in Blood by Automated counon 09-15-2023 WBC corrected for nucl RBC Auto (Bld) [#/Vol] 6.4 x10 3.5-10.5 [facility] Lymphocytes Auto (Bld) [#/Vo l]on 09-15-2023 Lymphocytes (Bld) [#/Vol] 2.2 x10 1.3-2.9 [facility] Lymphocytes/100 WBC Auto (Bl d)on 09-15-2023 Lymphocytes/100 WBC (Bld) 34 % 14-48 [facility] MCH Auto (RBC) [Entitic mass ]on 09-15-2023 MCH (RBC) [Entitic mass] 29 pg 24-34 [facility] MCHC Auto (RBC) [Mass/Vol]on 09-15-2023 MCHC (RBC) [Mass/Vol] 34 g/dL 26-37 [facility] MCV Auto (RBC) [Entitic vol] on 09-15-2023 MCV (RBC) [Entitic vol] 87 fL 81-100 [facility] Monocytes Auto (Bld) [#/Vol] on 09-15-2023 Monocytes (Bld) [#/Vol] 0.4 x10 0.0-0.8 [facility] Monocytes/100 WBC Auto (Bld) on 09-15-2023 Monocytes/100 WBC (Bld) 6 % 1-12 [facility] Neutrophils Auto (Bld) [#/Vo l]on 09-15-2023 Neutrophils (Bld) [#/Vol] 3.7 x10 1.5-9.2 [facility] Neutrophils/100 WBC Auto (Bl d)on 09-15-2023 Neutrophils/100 WBC (Bld) 57 % 44-88 [facility] No Panel Informationon 09-14 Add Manual Differential Auto Auto [facility] Eosinophils # (Auto) 0.2 x10 0.0-0.4 [facility] Platelet mean volume Auto (B ld) [Entitic vol]on 09-15-2023 Platelet mean volume (Bld) [Entitic vol] 6.7 fL 6.3-10.2 [facility] Platelets Auto (Bld) [#/Vol] on 09-15-2023 Platelets (Bld) [#/Vol] 179 x10 138-427 [facility] RBC Auto (Bld) [#/Vol]on RBC (Bld) [#/Vol] 4.76 x10 3.70-5.30 [facility] Follitropin [Units/volume] i n Serum or PlasmaOrdered By: LEOBARDO BARROSO on 06-23-2022 Follitropin Qn 6.2 m[IU]/mL [facility] Comment on above: FEMALE NORMALS (DELROY ENOPAUSE) MID-FOLLICULAR PHASE: 3.9-8.8 mIU/mL MID-CYCLE PEAK: 4.5-22.5 mIU/mL MID-LUTEAL PHASE: 1.8-5.1 mIU/mLFEMALE NORMALS (POSTMENOPAUSE): 16.7-113.6 mIU/mLMALE NORMALS: 1.3-19.3 mIU/mL Prolactin [Mass/volume] in S betty or PlasmaOrdered By: LEOBARDO BARROSO on 06-23-2022 Prolactin [Mass/Vol] 7.58 ng/mL 3.34-26.[address] [facility] [address] biopsyOrdered By: Lisha Ford on 06-16-2022 Transferrin [Mass/Vol] 393 mg/dL 180-380 [facility] Iron [Mass/volume] in Serum or PlasmaOrdered By: Amanda Ford on 06-16-2022 Iron [Mass/Vol] 34 ug/dL 40-150 [facility] Iron binding capacity [Mass/ volume] in Serum or PlasmaOrdered By: Amanda Ford on 06-16-2022 Iron binding capacity [Mass/Vol] 550 ug/dL 255-450 [facility] Iron saturation [Mass Fracti on] in Serum or PlasmaOrdered By: Amanda Ford on 06-16-2022 Iron saturation [Mass fraction] 6.2 % 20-50 [facility] Anisocytosis LM Ql (Bld)Orde red By: Farhad Lashonda on 06-11-2022 Anisocytosis Ql (Bld) Marked [facility] Basophils Auto (Bld) [#/Vol] Ordered By: Farhad Lashonda on 06-11-2022 Basophils (Bld) [#/Vol] N/A [facility] Basophils/100 WBC Auto (Bld) Ordered By: Farhad Lashonda on 06-11-2022 Basophils/100 WBC (Bld) N/A [facility] Basophils/100 WBC Manual cnt (Bld)Ordered By: Farhad Lashonda on 06-11-2022 Basophils/100 WBC (Bld) 1 % 0-2 [facility] Eosinophils Auto (Bld) [#/Vo l]Ordered By: Farhad Lashonda on 06-11-2022 Eosinophils (Bld) [#/Vol] N/A [facility] Eosinophils/100 WBC Auto (Bl d)Ordered By: Farhad Lashonda on 06-11-2022 Eosinophils/100 WBC (Bld) N/A [facility] Eosinophils/100 WBC Manual c nt (Bld)Ordered By: Farhad Lashonda on 06-11-2022 Eosinophils/100 WBC (Bld) 7 % 1-3 [facility] Erythrocyte distribution wid th Auto (RBC) [Ratio]Ordered By: Farhad Lashonda on 06-11-2022 Erythrocyte distribution width (RBC) [Ratio] 26.1 % 11.9-15.3 [facility] Hematocrit Auto (Bld) [Volum e fraction]Ordered By: Farhad Lashonda on 06-11-2022 Hematocrit (Bld) [Volume fraction] 25.7 % 34.0-46.4 [facility] Hemoglobin [Mass/volume] in BloodOrdered By: Farhad Lashonda on 06-11-2022 Hemoglobin (Bld) [Mass/Vol] 8.0 g/dL 11.8-15.4 [facility] Hypochromia LM Ql (Bld)Order ed By: Farhad Gallego on 06-11-2022 Hypochromia Ql (Bld) Moderate [facility] Leukocytes [#/volume] correc terry for nucleated erythrocytes in Blood by Automated counOrdered By: Farhad Gallego on 06-11-2022 WBC corrected for nucl RBC Auto (Bld) [#/Vol] 5.0 10*3/uL 3.8-11.6 [facility] Lymphocytes Auto (Bld) [#/Vo l]Ordered By: Farhad Gallego on 06-11-2022 Lymphocytes (Bld) [#/Vol] N/A [facility] Lymphocytes/100 WBC Auto (Bl d)Ordered By: Farhad Gallego on 06-11-2022 Lymphocytes/100 WBC (Bld) N/A [facility] Lymphocytes/100 WBC Manual c nt (Bld)Ordered By: Farhad Gallego on 06-11-2022 Lymphocytes/100 WBC (Bld) 56 % 18-42 [facility] MCH Auto (RBC) [Entitic mass ]Ordered By: Farhad Gallego on 06-11-2022 MCH (RBC) [Entitic mass] 21.1 pg 24.7-34.3 [facility] MCHC Auto (RBC) [Mass/Vol]Or dered By: Farhad Gallego on 06-11-2022 MCHC (RBC) [Mass/Vol] 31.2 g/dL 32.0-35.0 [facility] MCV Auto (RBC) [Entitic vol] Ordered By: Farhad Gallego on 06-11-2022 MCV (RBC) [Entitic vol] 67.6 fL 80-100 [facility] Microcytes LM Ql (Bld)Ordere d By: Farhad Gallego on 06-11-2022 Microcytes Ql (Bld) Marked [facility] Monocytes Auto (Bld) [#/Vol] Ordered By: Farhad Gallego on 06-11-2022 Monocytes (Bld) [#/Vol] N/A [facility] Monocytes/100 WBC Auto (Bld) Ordered By: Farhad Gallego on 06-11-2022 Monocytes/100 WBC (Bld) N/A [facility] Monocytes/100 WBC Manual cnt (Bld)Ordered By: Farhad Lashonda on 06-11-2022 Monocytes/100 WBC (Bld) 5 % 2-11 [facility] Neutrophils Auto (Bld) [#/Vo l]Ordered By: Farhad Lashonda on 06-11-2022 Neutrophils (Bld) [#/Vol] N/A [facility] Neutrophils/100 WBC Auto (Bl d)Ordered By: Farhad Lashonda on 06-11-2022 Neutrophils/100 WBC (Bld) N/A [facility] Nucleated erythrocytes [Pres ence] in Blood by Automated countOrdered By: Farhad Lashonda on 06-11-2022 Nucleated RBC Auto Ql (Bld) N/A [facility] Platelet adequacy [Presence] in Blood by Light microscopyOrdered By: Farhad Lashonda on 06-11-2022 Platelets LM Ql (Bld) Normal Normal [facility] Platelet mean volume Auto (B ld) [Entitic vol]Ordered By: Farhad Lashonda on 06-11-2022 Platelet mean volume (Bld) [Entitic vol] 8.2 fL 6.3-10.7 [facility] Platelet morphology finding [Identifier] in BloodOrdered By: Farhad Lashonda on 06-11-2022 Platelet morphology finding Nom (Bld) Normal Normal [facility] Platelets Auto (Bld) [#/Vol] Ordered By: Farhad Lashonda on 06-11-2022 Platelets (Bld) [#/Vol] 165 10*3/uL 150-450 [facility] Polychromasia [Presence] in Blood by Light microscopyOrdered By: Farhad Lashonda on 06-11-2022 Polychromasia LM Ql (Bld) Marked [facility] RBC Auto (Bld) [#/Vol]Ordere d By: Farhad Lashonda on 06-11-2022 RBC (Bld) [#/Vol] 3.80 10*6/uL 3.60-5.00 [facility] RBC morphologyOrdered By: Jenny Gallego on 06-11-2022 RBC morphology finding Nom (Bld) N/A [facility] Segmented neutrophils/100 WB C Manual cnt (Bld)Ordered By: Farhad Gallego on 06-11-2022 Segmented neutrophils/100 WBC (Bld) 32 % 50-70 [facility] WBC Auto (Bld) [#/Vol]Ordere d By: Farhad Gallego on 06-11-2022 WBC (Bld) [#/Vol] 5.0 10*3/uL 3.8-11.6 [facility] Activated partial thrombopla stin time (aPTT) in platelet poor plasma by coagulation aOrdered By: Jean Jett on 06-10-2022 aPTT Coag (PPP) [Time] 29.8 s 25.1-36.5 [facility] Anisocytosis LM Ql (Bld)Orde red By: Jean Jett on 06-10-2022 Anisocytosis Ql (Bld) Marked [facility] Basophils Auto (Bld) [#/Vol] Ordered By: Jean Jett on 06-10-2022 Basophils (Bld) [#/Vol] 0.1 10*3/uL 0.0-0.2 [facility] Basophils/100 WBC Auto (Bld) Ordered By: Jean Jett on 06-10-2022 Basophils/100 WBC (Bld) 1.8 % . [facility] Bilirubin Test strip Ql (U)O rdered By: Jean Jett on 06-10-2022 Bilirubin Ql (U) Negative Negative [facility] CT biopsyOrdered By: Jean Jett on 06-10-2022 Transferrin [Mass/Vol] 380 mg/dL 180-380 [facility] Calcium [Mass/volume] in Ser um or PlasmaOrdered By: Jean Jett on 06-10-2022 Calcium [Mass/Vol] 8.6 mg/dL 8.2-10.2 [facility] Carbon dioxide, total [Moles /volume] in Serum or PlasmaOrdered By: Jean Jett on 06-10-2022 CO2 [Moles/Vol] 23.3 mmol/L 22.0-30.0 [facility] Chloride [Moles/volume] in S betty or PlasmaOrdered By: Jean Jett on 06-10-2022 Chloride [Moles/Vol] 106 mmol/L 95-114 [facility] Color Auto (U)Ordered By: Luis Fernando Jett on 06-10-2022 Color (U) Yellow Yellow [facility] Creatine kinase [Enzymatic a ctivity/volume] in Serum or PlasmaOrdered By: Jean Jett on 06-10-2022 CK [Catalytic activity/Vol] 100 U/L 22-269 [facility] Creatinine and Glomerular fi ltration rate.predicted panel (S/P/Bld)Ordered By: Jean Jett on 06-10-2022 Creatinine [Mass/Vol] 0.71 mg/dL 0.44-1.03 [facility] Eosinophils Auto (Bld) [#/Vo l]Ordered By: Jean Jett on 06-10-2022 Eosinophils (Bld) [#/Vol] 0.3 10*3/uL 0.0-0.45 [facility] Eosinophils/100 WBC Auto (Bl d)Ordered By: Jean Jett on 06-10-2022 Eosinophils/100 WBC (Bld) 5.0 % . [facility] Erythrocyte distribution wid th Auto (RBC) [Ratio]Ordered By: Jean Jett on 06-10-2022 Erythrocyte distribution width (RBC) [Ratio] 24.6 % 11.9-15.3 [facility] Estimated glomerular filtrat ion rate (GFR) non- AmericanOrdered By: Jean Jett on 06-10-2022 GFR/1.73 sq M.predicted among non-blacks MDRD (S/P/Bld) [Vol rate/Area] > 60 mL/Min [facility] Fecal occult blood detection by immunochemistryOrdered By: Jean Jett on 06-10-2022 Hemoglobin.gastrointes tinal Ql (Stl) [facility] Glucose [Mass/volume] in Ser um or PlasmaOrdered By: Jean Jett on 06-10-2022 Glucose [Mass/Vol] 94 mg/dL 70-100 [facility] Comment on above: ADA recommended refe rence rangeRandom Glucose Reference Range is dependent on time and content of last meal. Glucose of more than 200 mg/dL in a nonstressed, ambulatory subject supports the diagnosis of Diabetes Mellitus. HCG ( test) IA.rapi d Ql (U)Ordered By: Jean Jett on 06-10-2022 HCG ( test) Ql (U) Negative [facility] Hematocrit Auto (Bld) [Volum e fraction]Ordered By: Jean Jett on 06-10-2022 Hematocrit (Bld) [Volume fraction] 23.8 % 34.0-46.4 [facility] Hemoglobin [Mass/volume] in BloodOrdered By: Jean Jett on 06-10-2022 Hemoglobin (Bld) [Mass/Vol] 7.3 g/dL 11.8-15.4 [facility] Hypochromia LM Ql (Bld)Order ed By: Jean Jett on 06-10-2022 Hypochromia Ql (Bld) Marked [facility] Iron [Mass/volume] in Serum or PlasmaOrdered By: Jean Jett on 06-10-2022 Iron [Mass/Vol] 25 ug/dL 40-150 [facility] Iron binding capacity [Mass/ volume] in Serum or PlasmaOrdered By: Jean Jett on 06-10-2022 Iron binding capacity [Mass/Vol] 532 ug/dL 255-450 [facility] Iron saturation [Mass Fracti on] in Serum or PlasmaOrdered By: Jean Jett on 06-10-2022 Iron saturation [Mass fraction] 4.7 % 20-50 [facility] Ketones Auto test strip (U) [Mass/Vol]Ordered By: Jean Jett on 06-10-2022 Ketones (U) [Mass/Vol] Negative Negative [facility] Laboratory - Chemistry and C hemistry - challengeOrdered By: Jean Jett on 06-10-2022 Magnesium [Mass/Vol] 1.9 mg/dL 1.6-2.6 [facility] Natriuretic peptide B (Bld) [Mass/Vol] 23.0 pg/mL 5-100 [facility] Laboratory - CoagulationOrde red By: Jean Jett on 06-10-2022 PT Coag (PPP) [Time] 12.9 s 9.0-12.9 [facility] Leukocytes [#/volume] correc terry for nucleated erythrocytes in Blood by Automated counOrdered By: Jean Jett on 06-10-2022 WBC corrected for nucl RBC Auto (Bld) [#/Vol] 5.3 10*3/uL 3.8-11.6 [facility] Lymphocytes Auto (Bld) [#/Vo l]Ordered By: Jean Jett on 06-10-2022 Lymphocytes (Bld) [#/Vol] 2.2 10*3/uL 1.00-4.8 [facility] Lymphocytes/100 WBC Auto (Bl d)Ordered By: Jean Jett on 06-10-2022 Lymphocytes/100 WBC (Bld) 41.3 % . [facility] MCH Auto (RBC) [Entitic mass ]Ordered By: Jean Jett on 06-10-2022 MCH (RBC) [Entitic mass] 19.7 pg 24.7-34.3 [facility] MCHC Auto (RBC) [Mass/Vol]Or dered By: Jean Jett on 06-10-2022 MCHC (RBC) [Mass/Vol] 30.6 g/dL 32.0-35.0 [facility] MCV Auto (RBC) [Entitic vol] Ordered By: Jean Jett on 06-10-2022 MCV (RBC) [Entitic vol] 64.5 fL 80-100 [facility] Microcytes LM Ql (Bld)Ordere d By: Jean Jett on 06-10-2022 Microcytes Ql (Bld) Marked [facility] Monocyte distribution width [Entitic volume] in Blood by AutomatedOrdered By: Jean Jett on 06-10-2022 Monocyte distribution width Auto (Bld) [Entitic vol] 17.54 % 0.00-20.00 [facility] Monocytes Auto (Bld) [#/Vol] Ordered By: Jean Jett on 06-10-2022 Monocytes (Bld) [#/Vol] 0.4 10*3/uL 0.0-0.8 [facility] Monocytes/100 WBC Auto (Bld) Ordered By: Jean Jett on 06-10-2022 Monocytes/100 WBC (Bld) 6.8 % . [facility] Neutrophils Auto (Bld) [#/Vo l]Ordered By: Jean Jett on 06-10-2022 Neutrophils (Bld) [#/Vol] 2.4 10*3/uL 1.8-7.7 [facility] Neutrophils/100 WBC Auto (Bl d)Ordered By: Jean Jett on 06-10-2022 Neutrophils/100 WBC (Bld) 45.1 % . [facility] Nitrite Test strip Ql (U)Ord ered By: Jean Jett on 06-10-2022 Nitrite Ql (U) Negative Negative [facility] No Panel InformationOrdered By: Jean Jett on 06-10-2022 Estimated GFR () > 60 mL/Min [facility] Comment on above: GFR estimated refere nce range: According to KDOQI guidelines, <60 ml/min/1.73m2 is sufficient to diagnose a patient with chronic kidney disease. Pharmacy Creatinine Clearance (Chem 149.49 [facility] Nucleated erythrocytes [Pres ence] in Blood by Automated countOrdered By: Jean Jett on 06-10-2022 Nucleated RBC Auto Ql (Bld) 0.1 /100{WBC} 0-0.5 [facility] Ovalocyte detectionOrdered B y: Jean Jett on 06-10-2022 Ovalocytes LM Ql (Bld) S[facility] Platelet adequacy [Presence] in Blood by Light microscopyOrdered By: Jean Jett on 06-10-2022 Platelets LM Ql (Bld) Normal Normal [facility] Platelet mean volume Auto (B ld) [Entitic vol]Ordered By: Jean Jett on 06-10-2022 Platelet mean volume (Bld) [Entitic vol] 8.3 fL 6.3-10.7 [facility] Platelet morphology finding [Identifier] in BloodOrdered By: Jean Jett on 06-10-2022 Platelet morphology finding Nom (Bld) Normal Normal [facility] Platelet poor plasma interna tional normalized ratio (INR) by coagulation assay (relatOrdered By: Jean Jett on 06-10-2022 INR Coag (PPP) [Relative time] 1.1 {INR} [facility] Comment on above: INR Therapeutic Rang e A) Pre- and Peroperative OAT started two weeks before surgery. NOT HIP SURGERY: 1.5 - 2.5 HIP SURGERY: 2 - 3B) Primary and secondary prevention of venous THROMBOSIS: 2 - 3C) Active venous thrombosis, pulmonary embolismand prevention of recurrent venous thrombosis: 2 - 3D) Prevention of arterial thromboembolismincluding patients with mechanical heart valves: 3 - 4.5 Platelets Auto (Bld) [#/Vol] Ordered By: Jean Jett on 06-10-2022 Platelets (Bld) [#/Vol] 202 10*3/uL 150-450 [facility] Poikilocytosis [Presence] in Blood by Light microscopyOrdered By: Jean Jett on 06-10-2022 Poikilocytosis LM Ql (Bld) [facility] Polychromasia [Presence] in Blood by Light microscopyOrdered By: Jean Jett on 06-10-2022 Polychromasia LM Ql (Bld) [facility] Potassium [Moles/volume] in Serum or PlasmaOrdered By: Jean Jett on 06-10-2022 Potassium [Moles/Vol] 4.1 mmol/L 3.5-5.1 [facility] Protein Auto test strip (U) [Mass/Vol]Ordered By: Jean Jett on 06-10-2022 Protein (U) [Mass/Vol] Negative Negative [facility] RBC Auto (Bld) [#/Vol]Ordere d By: Jean Jett on 06-10-2022 RBC (Bld) [#/Vol] 3.69 10*6/uL 3.60-5.00 [facility] RBC morphologyOrdered By: Luis Fernando Jett on 06-10-2022 RBC morphology finding Nom (Bld) N/A [facility] Serum or plasma anion gap de terminationOrdered By: Jean Jett on 06-10-2022 Anion gap [Moles/Vol] 10.8 mmol/L 6.0-15.0 [facility] Sodium [Moles/volume] in Ser um or PlasmaOrdered By: Jean Jett on 06-10-2022 Sodium [Moles/Vol] 136 mmol/L 136-146 [facility] Specific gravity Auto test s trip (U) [Rel density]Ordered By: Jean Jett on 06-10-2022 Specific gravity (U) [Rel density] 1.010 1.001-1.030 [facility] Target cellsOrdered By: Mackenzie Jett on 06-10-2022 Target cells LM Ql (Bld) Slight [facility] Teardrop cell detectionOrder ed By: Jean Jett on 06-10-2022 Dacrocytes LM Ql (Bld) Slight [facility] Troponin I.cardiac [Mass/vol ume] in Serum or Plasma by High sensitivity methodOrdered By: Jean Jett on 06-10-2022 Troponin I.cardiac High sensitivity method [Mass/Vol] < 3 pg/mL 0-15 [facility] Urea nitrogen [Mass/volume] in Serum or PlasmaOrdered By: Jean Jett on 06-10-2022 Urea nitrogen [Mass/Vol] 9 mg/dL 01-08 [facility] Urine clarity by refractomet ry automatedOrdered By: Jean Jett on 06-10-2022 Clarity Refractometry automated (U) Clear Clear [facility] Urine glucose measurement by automated test strip (mass/volume)Ordered By: Jean Jett on 06-10-2022 Glucose Auto test strip (U) [Mass/Vol] Normal mg/dL Normal [facility] Urine hemoglobin detection b y automated test stripOrdered By: Jean Jett on 06-10-2022 Hemoglobin Auto test strip Ql (U) Negative Negative [facility] Urine leukocyte esterase det ection by automated test stripOrdered By: Jean Jett on 06-10-2022 Leukocyte esterase Auto test strip Ql (U) Negative Negative [facility] Urobilinogen Auto test strip (U) [Mass/Vol]Ordered By: Jean Jett on 06-10-2022 Urobilinogen (U) [Mass/Vol] Normal mg/dL Normal [facility] WBC Auto (Bld) [#/Vol]Ordere d By: Jean Jett on 06-10-2022 WBC (Bld) [#/Vol] 5.3 10*3/uL 3.8-11.6 [facility] pH Auto test strip (U)Ordere d By: Jean Jett on 06-10-2022 pH (U) 5.5 [pH] 5.0-9.0 [facility] Alkaline phosphatase [Enzyma tic activity/volume] in Serum or PlasmaOrdered By: Julieta Jefferson on 06-09-2022 ALP [Catalytic activity/Vol] 39 U/L 32-92 [facility] Anisocytosis LM Ql (Bld)Orde red By: Julieta Jefferson on 06-09-2022 Anisocytosis Ql (Bld) [facility] [facility] Aspartate aminotransferase [ Enzymatic activity/volume] in Serum or PlasmaOrdered By: Julieta Jefferson on 06-09-2022 AST [Catalytic activity/Vol] 15 U/L 10-42 [facility] Basophils Auto (Bld) [#/Vol] Ordered By: Julieta Jefferson on 06-09-2022 Basophils (Bld) [#/Vol] 0.1 10*3/uL 0.0-0.2 [facility] Basophils/100 WBC Auto (Bld) Ordered By: Julieta Jefferson on 06-09-2022 Basophils/100 WBC (Bld) 1.4 % . [facility] Body fluid albumin measureme nt (mass/volume)Ordered By: Julieta Jefferson on 06-09-2022 Albumin (Body fld) [Mass/Vol] 4.1 g/dL 3.2-5.5 [facility] Calcium [Mass/volume] in Ser um or PlasmaOrdered By: Julieta Jefferson on 06-09-2022 Calcium [Mass/Vol] 9.0 mg/dL 8.2-10.2 [facility] Carbon dioxide, total [Moles /volume] in Serum or PlasmaOrdered By: Julieta Jefferson on 06-09-2022 CO2 [Moles/Vol] 23.3 mmol/L 22.0-30.0 [facility] Cholesterol [Mass/volume] in Serum or PlasmaOrdered By: Juleita Jefferson on 06-09-2022 Cholesterol [Mass/Vol] 137 mg/dL 140-200 [facility] Comment on above: Chol less than 200 m g/dl low riskChol 201-239 mg/dl borderline riskChol 240 mg/dl and greater high risk Cholesterol in LDL Calc [Mas s/Vol]Ordered By: Julieta Jefferson on 06-09-2022 Cholesterol in LDL [Mass/Vol] 72 mg/dL 0-100 [facility] Comment on above: LDL ATP III CLASSIFI CATIONLDL less than 100 mg/dL OptimalLDL 100-129 mg/dL Near or above optimalLDL 130-159 mg/dL Borderline highLDL 160-189 mg/dL HighLDL greater than 189 mg/dL Very high Cholesterol in VLDL Calc [Ma ss/Vol]Ordered By: Julieta Jefferson on 06-09-2022 Cholesterol in VLDL [Mass/Vol] 9 mg/dL [facility] Creatinine and Glomerular fi ltration rate.predicted panel (S/P/Bld)Ordered By: Julieta Jefferson on 06-09-2022 Creatinine [Mass/Vol] 0.59 mg/dL 0.44-1.03 [facility] Eosinophils Auto (Bld) [#/Vo l]Ordered By: Julieta Jefferson on 06-09-2022 Eosinophils (Bld) [#/Vol] 0.3 10*3/uL 0.0-0.45 [facility] Eosinophils/100 WBC Auto (Bl d)Ordered By: Julieta Jefferson on 06-09-2022 Eosinophils/100 WBC (Bld) 6.8 % . [facility] Erythrocyte distribution wid th Auto (RBC) [Ratio]Ordered By: Julieta Jefferson on 06-09-2022 Erythrocyte distribution width (RBC) [Ratio] 24.5 % 11.9-15.3 [facility] Estimated glomerular filtrat ion rate (GFR) non- AmericanOrdered By: Julieta Jefferson on 06-09-2022 GFR/1.73 sq M.predicted among non-blacks MDRD (S/P/Bld) [Vol rate/Area] > 60 mL/Min [facility] Globulin Calc (S) [Mass/Vol] Ordered By: Julieta Jefferson on 06-09-2022 Globulin (S) [Mass/Vol] 2.3 g/dL [facility] Glucose mean value [Mass/vol ume] in Blood Estimated from glycated hemoglobinOrdered By: Julieta Jefferson on 06-09-2022 Average glucose Estimated from glycated hemoglobin (Bld) [Mass/Vol] 97 mg/dL [facility] Hematocrit Auto (Bld) [Volum e fraction]Ordered By: Julieta Jefferson on 06-09-2022 Hematocrit (Bld) [Volume fraction] 26.0 % 34.0-46.4 [facility] Hemoglobin A1c percentageOrd ered By: Julieta Jefferson on 06-09-2022 HbA1c (Bld) [Mass fraction] 5.0 % 4.3-5.6 [facility] Comment on above: Increased risk for d iabetes: 5.7 - 6.4diabetes: >6.4glycemic control for adults with diabetes: <7.0 Hemoglobin [Mass/volume] in BloodOrdered By: Julieta Jefferson on 06-09-2022 Hemoglobin (Bld) [Mass/Vol] 7.8 g/dL 11.8-15.4 [facility] Hypochromia LM Ql (Bld)Order ed By: Julieta Jefferson on 06-09-2022 Hypochromia Ql (Bld) Moderate [facility] Leukocytes [#/volume] correc terry for nucleated erythrocytes in Blood by Automated counOrdered By: Julieta Jefferson on 06-09-2022 WBC corrected for nucl RBC Auto (Bld) [#/Vol] 4.6 10*3/uL 3.8-11.6 [facility] Lymphocytes Auto (Bld) [#/Vo l]Ordered By: Julieta Jefferson on 06-09-2022 Lymphocytes (Bld) [#/Vol] 2.0 10*3/uL 1.00-4.8 [facility] Lymphocytes/100 WBC Auto (Bl d)Ordered By: Julieta Jefferson on 06-09-2022 Lymphocytes/100 WBC (Bld) 44.2 % . [facility] MCH Auto (RBC) [Entitic mass ]Ordered By: Julieta Jefferson on 06-09-2022 MCH (RBC) [Entitic mass] 19.7 pg 24.7-34.3 [facility] MCHC Auto (RBC) [Mass/Vol]Or dered By: Julieta Jefferson on 06-09-2022 MCHC (RBC) [Mass/Vol] 30.2 g/dL 32.0-35.0 [facility] MCV Auto (RBC) [Entitic vol] Ordered By: Julieta Jefferson on 06-09-2022 MCV (RBC) [Entitic vol] 65.3 fL 80-100 [facility] Microcytes LM Ql (Bld)Ordere d By: Julieta Jefferson on 06-09-2022 Microcytes Ql (Bld) Marked [facility] Monocytes Auto (Bld) [#/Vol] Ordered By: Julieta Jefferson on 06-09-2022 Monocytes (Bld) [#/Vol] 0.4 10*3/uL 0.0-0.8 [facility] Monocytes/100 WBC Auto (Bld) Ordered By: Julieta Jefferson on 06-09-2022 Monocytes/100 WBC (Bld) 8.9 % . [facility] Neutrophils Auto (Bld) [#/Vo l]Ordered By: Julieta Jefferson on 06-09-2022 Neutrophils (Bld) [#/Vol] 1.8 10*3/uL 1.8-7.7 [facility] Neutrophils/100 WBC Auto (Bl d)Ordered By: Julieta Jefferson on 06-09-2022 Neutrophils/100 WBC (Bld) 38.7 % . [facility] No Panel InformationOrdered By: Julieta Jefferson on 06-09-2022 Estimated GFR () > 60 mL/Min [facility] Comment on above: GFR estimated refere nce range: According to KDOQI guidelines, <60 ml/min/1.73m2 is sufficient to diagnose a patient with chronic kidney disease. Pharmacy Creatinine Clearance (Chem N/A [facility] Nucleated erythrocytes [Pres ence] in Blood by Automated countOrdered By: Julieta Jefferson on 06-09-2022 Nucleated RBC Auto Ql (Bld) 0.1 /100{WBC} 0-0.5 [facility] Platelet adequacy [Presence] in Blood by Light microscopyOrdered By: Julieta Jefferson on 06-09-2022 Platelets LM Ql (Bld) Normal Normal [facility] Platelet mean volume Auto (B ld) [Entitic vol]Ordered By: Julieta Jefferson on 06-09-2022 Platelet mean volume (Bld) [Entitic vol] 8.2 fL 6.3-10.7 [facility] Platelet morphology finding [Identifier] in BloodOrdered By: Julieta Jefferson on 06-09-2022 Platelet morphology finding Nom (Bld) Normal Normal [facility] Platelets Auto (Bld) [#/Vol] Ordered By: Julieta Jefferson on 06-09-2022 Platelets (Bld) [#/Vol] 200 10*3/uL 150-450 [facility] Poikilocytosis [Presence] in Blood by Light microscopyOrdered By: Julieta Jefferson on 06-09-2022 Poikilocytosis LM Ql (Bld) Slight [facility] Polychromasia [Presence] in Blood by Light microscopyOrdered By: Julieta Jefferson on 06-09-2022 Polychromasia LM Ql (Bld) Moderate [facility] Protein [Mass/volume] in Ser um or PlasmaOrdered By: Julieta Jefferson on 06-09-2022 Protein [Mass/Vol] 6.4 g/dL 6.1-7.9 [facility] RBC Auto (Bld) [#/Vol]Ordere d By: Julieta Jefferson on 06-09-2022 RBC (Bld) [#/Vol] 3.97 10*6/uL 3.60-5.00 [facility] RBC morphologyOrdered By: Guicho Jefferson on 06-09-2022 RBC morphology finding Nom (Bld) N/A [facility] Schistocytes [Presence] in B lood by Light microscopyOrdered By: Julieta Jefferson on 06-09-2022 Schistocytes LM Ql (Bld) Slight [facility] Serum or plasma alanine paredes otransferase measurement without P-5'-P (enzymatic activiOrdered By: Julieta Jefferson on 06-09-2022 ALT No additional P-5'-P [Catalytic activity/Vol] 14 U/L 10-60 [facility] Serum or plasma albumin/glob ulin mass ratioOrdered By: Julieta Jefferson on 06-09-2022 Albumin/Globulin [Mass ratio] 1.8 {ratio} [facility] Serum or plasma anion gap de terminationOrdered By: Julieta Jefferson on 06-09-2022 Anion gap [Moles/Vol] 11.5 mmol/L 6.0-15.0 [facility] Serum or plasma calcitriol m easurement (mass/volume)Ordered By: Julieta Jefferson on 06-09-2022 1,25-dihydroxyvitamin D3 [Mass/Vol] 60.5 pg/mL 24.8-81.5 [facility] Comment on above: Performed at: [address] [id number] Director: Jon Horton MD, Phone: [phone] Serum or plasma chloride robel surement (moles/volume)Ordered By: Julieta Jefferson on 06-09-2022 Chloride [Moles/Vol] 106 mmol/L 95-114 [facility] Serum or plasma glucose kelly urement (mass/volume)Ordered By: Julieta Jefferson on 06-09-2022 Glucose [Mass/Vol] 78 mg/dL 70-100 [facility] Comment on above: ADA recommended refe rence rangeRandom Glucose Reference Range is dependent on time and content of last meal. Glucose of more than 200 mg/dL in a nonstressed, ambulatory subject supports the diagnosis of Diabetes Mellitus. Serum or plasma high density lipoprotein (HDL) cholesterol measurementOrdered By: Julieta Jefferson on 06-09-2022 Cholesterol in HDL [Mass/Vol] 56 mg/dL 35-85 [facility] Comment on above: HDL CHOL ATP-III CLA SSIFICATION Cardiovascular RiskHDL > or equal to 60 mg/dL LOWHDL < 40 mg/dL HIGH Serum or plasma potassium me asurement (moles/volume)Ordered By: Julieta Jefferson on 06-09-2022 Potassium [Moles/Vol] 3.8 mmol/L 3.5-5.1 [facility] Serum or plasma sodium measu rement (moles/volume)Ordered By: Julieta Jefferson on 06-09-2022 Sodium [Moles/Vol] 137 mmol/L 136-146 [facility] Serum or plasma total biliru bin measurement (mass/volume)Ordered By: Julieta Jefferson on 06-09-2022 Bilirubin [Mass/Vol] 0.3 mg/dL 0.3-1.2 [facility] Serum or plasma total choles terol/high density lipoprotein (HDL) cholesterol mass ratOrdered By: Julieta Jefferson on 06-09-2022 Cholesterol.total/Chol esterol in HDL [Mass ratio] 2.4 {ratio} <5.0 [facility] TSH DL <= 0.005 mIU/L QnOrde red By: Julieta Jefferson on 06-09-2022 TSH Qn 4.10 m[IU]/L 0.45-5.33 [facility] Teardrop cell detectionOrder ed By: Julieta Jefferson on 02-22-2023 Dacrocytes LM Ql (Bld) Slight [facility] Triglyceride [Mass/volume] i n Serum or PlasmaOrdered By: Julieta Jefferson on 06-09-2022 Triglyceride [Mass/Vol] 45 mg/dL 35-149 [facility] Comment on above: TRIG ATP III CLASSIF ICATIONTRIG less than 150 mg/dL NormalTRIG 150-199 mg/dL Borderline highTRIG 200-500 mg/dL High TRIG greater than 500 mg/dL Very highStandard traceable to the Center for Disease Conrtrol and Prevention (CDC) test method. Urea nitrogen [Mass/volume] in Serum or PlasmaOrdered By: Julieta Jefferson on 06-09-2022 Urea nitrogen [Mass/Vol] 6 mg/dL 9- [facility] WBC Auto (Bld) [#/Vol]Ordere d By: Julieta Jefferson on 06-09-2022 WBC (Bld) [#/Vol] 4.6 10*3/uL 3.8-11.6 [facility] Urine 10 SGon 04-21-2022 Albumin DL <= 20 mg/L (U) [Mass/Vol] Negative [facility] Other pH (U) 7.0 [pH] [facility] Other Urine 10 SG Negative [facility] Other Urine 10 SG 1.020 [facility] Other Urine 10 SG large [employer] Other Urine Cultureon 04-21-2022 Bacteria identified Cx Nom (U) [employer] Other Urine culture routineOrdered By: Amanda Ford on 04-21-2022 Bacteria identified Cx Nom (U) 2 Days [facility] Activated partial thrombopla stin time (aPTT) in platelet poor plasma by coagulation aOrdered By: Phu Hdz on 04-10-2022 aPTT Coag (PPP) [Time] 30.4 s 25.1-36.5 [facility] Automated erythrocytes count in urine sediment (number/area)Ordered By: Jean Jett on 12-24-2022 RBC Auto (Urine sed) [#/Area] Innumerable [HPF] 0-4 [facility] Automated leukocytes count i n urine sediment (number/area)Ordered By: Jean Jett on 04-10-2022 WBC Auto (Urine sed) [#/Area] 3-4 [HPF] 0-4 [facility] Automated urine sediment mukesh cium oxalate crystal count by microscopy (number/high powOrdered By: Jean Jett on 04-10-2022 Calcium oxalate crystals LM.HPF (Urine sed) [#/Area] 1+ [HPF] [facility] Basophils Auto (Bld) [#/Vol] Ordered By: Jean Jett on 04-10-2022 Basophils (Bld) [#/Vol] 0.0 10*3/uL 0.0-0.2 [facility] Basophils/100 WBC Auto (Bld) Ordered By: Jean Jett on 04-10-2022 Basophils/100 WBC (Bld) 0.5 % . [facility] Bilirubin Test strip Ql (U)O rdered By: Jean Jett on 04-10-2022 Bilirubin Ql (U) 1+ Negative [facility] Casts typing in urine sedime nt by light microscopyOrdered By: Jean Jett on 04-10-2022 Casts LM Nom (Urine sed) None seen [LPF] None Seen [facility] Color Auto (U)Ordered By: Luis Fernando Jett on 04-10-2022 Color (U) Red Yellow [facility] Creatinine and Glomerular fi ltration rate.predicted panel (S/P/Bld)Ordered By: Jean Jett on 04-10-2022 Creatinine [Mass/Vol] 0.68 mg/dL 0.44-1.03 [facility] Eosinophils Auto (Bld) [#/Vo l]Ordered By: Jean Jett on 04-10-2022 Eosinophils (Bld) [#/Vol] 0.2 10*3/uL 0.0-0.45 [facility] Eosinophils/100 WBC Auto (Bl d)Ordered By: Jean Jett on 04-10-2022 Eosinophils/100 WBC (Bld) 2.1 % . [facility] Erythrocyte distribution wid th Auto (RBC) [Ratio]Ordered By: Jean Jett on 04-10-2022 Erythrocyte distribution width (RBC) [Ratio] 14.3 % 11.9-15.3 [facility] Estimated glomerular filtrat ion rate (GFR) non- AmericanOrdered By: Jean Jett on 04-10-2022 GFR/1.73 sq M.predicted among non-blacks MDRD (S/P/Bld) [Vol rate/Area] > 60 mL/Min [facility] HCG ( test) IA.rapi d Ql (U)Ordered By: Jean Jett on 04-10-2022 HCG ( test) Ql (U) Negative [facility] Hematocrit Auto (Bld) [Volum e fraction]Ordered By: Jean Jett on 04-10-2022 Hematocrit (Bld) [Volume fraction] 29.4 % 34.0-46.4 [facility] Hemoglobin [Mass/volume] in BloodOrdered By: Jean Jett on 04-10-2022 Hemoglobin (Bld) [Mass/Vol] 9.9 g/dL 11.8-15.4 [facility] Ketones Auto test strip (U) [Mass/Vol]Ordered By: Jean Jett on 04-10-2022 Ketones (U) [Mass/Vol] Negative Negative [facility] Laboratory - CoagulationOrde red By: Phu Hdz on 04-10-2022 PT Coag (PPP) [Time] 12.4 s 9.0-12.9 [facility] - UrinalysisOrder ed By: Jean Jett on 04-10-2022 Hyaline casts LM Ql (Urine sed) None seen [LPF] 0-8 [facility] Leukocytes [#/volume] correc terry for nucleated erythrocytes in Blood by Automated counOrdered By: Jean Jett on 04-10-2022 WBC corrected for nucl RBC Auto (Bld) [#/Vol] 8.5 10*3/uL 3.8-11.6 [facility] Lymphocytes Auto (Bld) [#/Vo l]Ordered By: Jean Jett on 04-10-2022 Lymphocytes (Bld) [#/Vol] 2.1 10*3/uL 1.00-4.8 [facility] Lymphocytes/100 WBC Auto (Bl d)Ordered By: Jean Jett on 04-10-2022 Lymphocytes/100 WBC (Bld) 25.2 % . [facility] MCH Auto (RBC) [Entitic mass ]Ordered By: Jean Jett on 04-10-2022 MCH (RBC) [Entitic mass] 28.8 pg 24.7-34.3 [facility] MCHC Auto (RBC) [Mass/Vol]Or dered By: Jean Jett on 04-10-2022 MCHC (RBC) [Mass/Vol] 33.6 g/dL 32.0-35.0 [facility] MCV Auto (RBC) [Entitic vol] Ordered By: Jean Jett on 04-10-2022 MCV (RBC) [Entitic vol] 85.7 fL 80-100 [facility] Monocyte distribution width [Entitic volume] in Blood by AutomatedOrdered By: Jean Jett on 04-10-2022 Monocyte distribution width Auto (Bld) [Entitic vol] 14.20 % 0.00-20.00 [facility] Monocytes Auto (Bld) [#/Vol] Ordered By: Jean Jett on 04-10-2022 Monocytes (Bld) [#/Vol] 0.5 10*3/uL 0.0-0.8 [facility] Monocytes/100 WBC Auto (Bld) Ordered By: Jean Jett on 04-10-2022 Monocytes/100 WBC (Bld) 5.7 % . [facility] Neutrophils Auto (Bld) [#/Vo l]Ordered By: Jean Jett on 04-10-2022 Neutrophils (Bld) [#/Vol] 5.6 10*3/uL 1.8-7.7 [facility] Neutrophils/100 WBC Auto (Bl d)Ordered By: Jean Jett on 04-10-2022 Neutrophils/100 WBC (Bld) 66.5 % . [facility] Nitrite Test strip Ql (U)Ord ered By: Jean Jett on 04-10-2022 Nitrite Ql (U) Positive Negative [facility] No Panel InformationOrdered By: Jean Jett on 04-10-2022 Estimated GFR () > 60 mL/Min [facility] Comment on above: GFR estimated refere nce range: According to KDOQI guidelines, <60 ml/min/1.73m2 is sufficient to diagnose a patient with chronic kidney disease. Pharmacy Creatinine Clearance (Chem 152.39 [facility] Nucleated erythrocytes [Pres ence] in Blood by Automated countOrdered By: Jean Jett on 04-10-2022 Nucleated RBC Auto Ql (Bld) 0.0 /100{WBC} 0-0.5 [facility] Platelet mean volume Auto (B ld) [Entitic vol]Ordered By: Jean Jett on 04-10-2022 Platelet mean volume (Bld) [Entitic vol] 6.9 fL 6.3-10.7 [facility] Platelet poor plasma interna tional normalized ratio (INR) by coagulation assay (relatOrdered By: Phu Hdz on 04-10-2022 INR Coag (PPP) [Relative time] 1.1 {INR} [facility] Comment on above: INR Therapeutic Rang e A) Pre- and Peroperative OAT started two weeks before surgery. NOT HIP SURGERY: 1.5 - 2.5 HIP SURGERY: 2 - 3B) Primary and secondary prevention of venous THROMBOSIS: 2 - 3C) Active venous thrombosis, pulmonary embolismand prevention of recurrent venous thrombosis: 2 - 3D) Prevention of arterial thromboembolismincluding patients with mechanical heart valves: 3 - 4.5 Platelets Auto (Bld) [#/Vol] Ordered By: Jean Jett on 04-10-2022 Platelets (Bld) [#/Vol] 263 10*3/uL 150-450 [facility] Protein Auto test strip (U) [Mass/Vol]Ordered By: Jean Jett on 04-10-2022 Protein (U) [Mass/Vol] 100 mg/dL Negative [facility] RBC Auto (Bld) [#/Vol]Ordere d By: Jean Jett on 04-10-2022 RBC (Bld) [#/Vol] 3.43 10*6/uL 3.60-5.00 [facility] Serum or plasma anion gap de terminationOrdered By: Jean Jett on 04-10-2022 Anion gap [Moles/Vol] 8.5 mmol/L 6.0-15.0 [facility] Serum or plasma calcium kelly urement (mass/volume)Ordered By: Jean Jett on 04-10-2022 Calcium [Mass/Vol] 8.6 mg/dL 8.2-10.2 [facility] Serum or plasma chloride robel surement (moles/volume)Ordered By: Jean Jett on 04-10-2022 Chloride [Moles/Vol] 106 mmol/L 95-114 [facility] Serum or plasma glucose kelly urement (mass/volume)Ordered By: Jean Jett on 04-10-2022 Glucose [Mass/Vol] 99 mg/dL 70-100 [facility] Comment on above: ADA recommended refe rence rangeRandom Glucose Reference Range is dependent on time and content of last meal. Glucose of more than 200 mg/dL in a nonstressed, ambulatory subject supports the diagnosis of Diabetes Mellitus. Serum or plasma potassium me asurement (moles/volume)Ordered By: Jean Jett on 04-10-2022 Potassium [Moles/Vol] 3.6 mmol/L 3.5-5.1 [facility] Serum or plasma sodium measu rement (moles/volume)Ordered By: Jean Jett on 04-10-2022 Sodium [Moles/Vol] 138 mmol/L 136-146 [facility] Serum or plasma total carbon dioxide measurement (moles/volume)Ordered By: Jean Jett on 04-10-2022 CO2 [Moles/Vol] 27.1 mmol/L 22.0-30.0 [facility] Serum or plasma urea nitroge n measurement (mass/volume)Ordered By: Jean Jett on 04-10-2022 Urea nitrogen [Mass/Vol] 5 mg/dL 9-23 [facility] Specific gravity Auto test s trip (U) [Rel density]Ordered By: Jean Jett on 04-10-2022 Specific gravity (U) [Rel density] 1.033 1.001-1.030 [facility] Squamous epithelial cells de tection in urine sediment by light microscopyOrdered By: Jean Jett on 04-10-2022 Epithelial cells.squamous LM Ql (Urine sed) 3-4 [HPF] 0-2 [facility] Urine bacteria detection by automated methodOrdered By: Jean Jett on 04-10-2022 Bacteria Auto Ql (U) None seen None Seen [facility] Urine clarity by refractomet ry automatedOrdered By: Jean Jett on 04-10-2022 Clarity Refractometry automated (U) Turbid Clear [facility] Urine culture routineOrdered By: Jean Jett on 04-10-2022 Bacteria identified Cx Nom (U) 2 Days [facility] Urine glucose measurement by automated test strip (mass/volume)Ordered By: Jean Jett on 04-10-2022 Glucose Auto test strip (U) [Mass/Vol] Normal mg/dL Normal [facility] Urine hemoglobin detection b y automated test stripOrdered By: Jean Jett on 04-10-2022 Hemoglobin Auto test strip Ql (U) 3+ Negative [facility] Urine leukocyte esterase det ection by automated test stripOrdered By: Jean Jett on 04-10-2022 Leukocyte esterase Auto test strip Ql (U) 2+ Negative [facility] Urine sediment crystal ident ification by light microscopyOrdered By: Jean Jett on 04-10-2022 Crystals LM Nom (Urine sed) None seen [HPF] [facility] Urobilinogen Auto test strip (U) [Mass/Vol]Ordered By: Jean Jett on 04-10-2022 Urobilinogen (U) [Mass/Vol] Normal mg/dL Normal [facility] WBC Auto (Bld) [#/Vol]Ordere d By: Jean Jett on 04-10-2022 WBC (Bld) [#/Vol] 8.5 10*3/uL 3.8-11.6 [facility] pH Auto test strip (U)Ordere d By: Jean Jett on 04-10-2022 pH (U) 5.5 [pH] 5.0-9.0 [facility] Basophils Auto (Bld) [#/Vol] Ordered By: PROVIDER TEMP on 04-08-2022 Basophils (Bld) [#/Vol] 0.0 10*3/uL 0.0-0.2 [facility] Basophils/100 WBC Auto (Bld) Ordered By: PROVIDER TEMP on 04-08-2022 Basophils/100 WBC (Bld) 0.4 % . [facility] Eosinophils Auto (Bld) [#/Vo l]Ordered By: PROVIDER TEMP on 04-08-2022 Eosinophils (Bld) [#/Vol] 0.4 10*3/uL 0.0-0.45 [facility] Eosinophils/100 WBC Auto (Bl d)Ordered By: PROVIDER TEMP on 04-08-2022 Eosinophils/100 WBC (Bld) 5.5 % . [facility] Erythrocyte distribution wid th Auto (RBC) [Ratio]Ordered By: PROVIDER TEMP on 04-08-2022 Erythrocyte distribution width (RBC) [Ratio] 14.1 % 11.9-15.3 [facility] Hematocrit Auto (Bld) [Volum e fraction]Ordered By: PROVIDER TEMP on 04-08-2022 Hematocrit (Bld) [Volume fraction] 33.9 % 34.0-46.4 [facility] Hemoglobin [Mass/volume] in BloodOrdered By: PROVIDER TEMP on 04-08-2022 Hemoglobin (Bld) [Mass/Vol] 11.4 g/dL 11.8-15.4 [facility] Leukocytes [#/volume] correc terry for nucleated erythrocytes in Blood by Automated counOrdered By: PROVIDER TEMP on 04-08-2022 WBC corrected for nucl RBC Auto (Bld) [#/Vol] 8.1 10*3/uL 3.8-11.6 [facility] Lymphocytes Auto (Bld) [#/Vo l]Ordered By: PROVIDER TEMP on 04-08-2022 Lymphocytes (Bld) [#/Vol] 2.3 10*3/uL 1.00-4.8 [facility] Lymphocytes/100 WBC Auto (Bl d)Ordered By: PROVIDER TEMP on 04-08-2022 Lymphocytes/100 WBC (Bld) 28.1 % . [facility] MCH Auto (RBC) [Entitic mass ]Ordered By: PROVIDER TEMP on 04-08-2022 MCH (RBC) [Entitic mass] 29.0 pg 24.7-34.3 [facility] MCHC Auto (RBC) [Mass/Vol]Or dered By: PROVIDER TEMP on 04-08-2022 MCHC (RBC) [Mass/Vol] 33.7 g/dL 32.0-35.0 [facility] MCV Auto (RBC) [Entitic vol] Ordered By: PROVIDER TEMP on 04-08-2022 MCV (RBC) [Entitic vol] 86.0 fL 80-100 [facility] Monocyte distribution width [Entitic volume] in Blood by AutomatedOrdered By: PROVIDER TEMP on 04-08-2022 Monocyte distribution width Auto (Bld) [Entitic vol] 13.83 % 0.00-20.00 [facility] Monocytes Auto (Bld) [#/Vol] Ordered By: PROVIDER TEMP on 04-08-2022 Monocytes (Bld) [#/Vol] 0.5 10*3/uL 0.0-0.8 [facility] Monocytes/100 WBC Auto (Bld) Ordered By: PROVIDER TEMP on 04-08-2022 Monocytes/100 WBC (Bld) 6.7 % . [facility] Neutrophils Auto (Bld) [#/Vo l]Ordered By: PROVIDER TEMP on 04-08-2022 Neutrophils (Bld) [#/Vol] 4.8 10*3/uL 1.8-7.7 [facility] Neutrophils/100 WBC Auto (Bl d)Ordered By: PROVIDER TEMP on 04-08-2022 Neutrophils/100 WBC (Bld) 59.3 % . [facility] Nucleated erythrocytes [Pres ence] in Blood by Automated countOrdered By: PROVIDER TEMP on 04-08-2022 Nucleated RBC Auto Ql (Bld) 0.2 /100{WBC} 0-0.5 [facility] Platelet mean volume Auto (B ld) [Entitic vol]Ordered By: PROVIDER TEMP on 04-08-2022 Platelet mean volume (Bld) [Entitic vol] 7.0 fL 6.3-10.7 [facility] Platelets Auto (Bld) [#/Vol] Ordered By: PROVIDER TEMP on 04-08-2022 Platelets (Bld) [#/Vol] 199 10*3/uL 150-450 [facility] RBC Auto (Bld) [#/Vol]Ordere d By: PROVIDER TEMP on 04-08-2022 RBC (Bld) [#/Vol] 3.94 10*6/uL 3.60-5.00 [facility] WBC Auto (Bld) [#/Vol]Ordere d By: PROVIDER TEMP on 04-08-2022 WBC (Bld) [#/Vol] 8.1 10*3/uL 3.8-11.6 [facility] XR shoulder RT min 2V*on XR shoulder RT min 2V* [facility] [place] Other XR shoulder RT min 2V* [facility] [place] Other XR shoulder RT min 2V* [address] [facility] [place] Other XR shoulder RT min 2V* LUKE Bazzi [id number] [facility] Other XR shoulder RT min 2V* XRay Report N [facility] Other XR shoulder RT min 2V* Signed No rt [facility] Other XR shoulder RT min 2V* Patient: Meagan Sanders MR#: [id number] [facility] Other XR shoulder RT min 2V* 978[address] No rt [employer] Other XR shoulder RT min 2V* : 1995 Acct:[id number] [facility] Other XR shoulder RT min 2V* Age/Sex: 27 / F A DM Date: 03/23/22 [facility] Other XR shoulder RT min 2V* [facility] T [facility] Other XR shoulder RT min 2V* Attending Dr: Daxa Ford APRN, COATING MACHINE OPERATOR HELPER-C [facility] Other XR shoulder RT min 2V* Copies to: Yaya Ford APRN, POTATO INSPECTOR [facility] Other XR shoulder RT min 2V* Ordering Provider : Amanda Ford APRN, POTATO INSPECTOR [facility] Other XR shoulder RT min 2V* Date of Service: 03/23/22 [facility] Other XR shoulder RT min 2V* XR/XR shoulder RT min 2V*: Other chronic pain;Pain in right shoulder [facility] Other XR shoulder RT min 2V* RIGHT SHOULDER - - 3 views [facility] Other XR shoulder RT min 2V* CLINICAL HISTORY: Pain lateral to right shoulder for 6 months. [facility] Other XR shoulder RT min 2V* COMPARISON: None [facility] Other XR shoulder RT min 2V* FINDINGS: No rtReverbeo Other XR shoulder RT min 2V* Minimal degenerat misti changes of the right AC joint. Glenohumeral joint is grossly unremarkable. No [facility] Other XR shoulder RT min 2V* acute bony process. [facility] Other XR shoulder RT min 2V* 0 XR/XR shoulder RT min 2V* [facility] Other XR shoulder RT min 2V* IMPRESSION: N Marginize Other XR shoulder RT min 2V* MINIMAL DEGENERAT MISTI CHANGES. NO ACUTE BONY PROCESS. [facility] Other XR shoulder RT min 2V* Impression dictat ed by: Sravan Dickinson Jr., D.ORenae03/23/2022 4:06 PM [facility] Other XR shoulder RT min 2V* Dictation Locatio n: RADIO-PC-12 [facility] Other XR shoulder RT min 2V* Transcribed By: Diaz OWENS 03/23/22 1606 [facility] Other XR shoulder RT min 2V* Dictated By: Jasiel Dickinson Jr, DO 03/23/22 1605 [facility] [place] Other XR shoulder RT min 2V* Signed By: No rt [employer] Other XR shoulder RT min 2V* 03/23/22 1606 [facility] Other Coding Summary.on 09-03-2021 Coding Summary. [id number] Gh0 bWw+PGhlYWQ+GV1GPUIxL36 abDHnfU7CW3mNDJ7WDQEDAU LTXR0OVD6uyQR5ICbyN2Pbe iAv GxrxpGPaFD65SSp6LUL0pMe jBBxfhK1zqIHaE8e8QfOyRV 77sM46LZwnEKZuNsB3CxMpj jsgbWFy D4zsAtGfbEGfIur+PHRhYmx lIHdpZHRoPScxMDAlJyBzdH faDI0cRw0yFQDbXZJahAkkz HNlOiBj z3ejKQTrDPdbZM0gmYuwL5C yzOX0YXEcs8k7Wv76oSB+PH ElUZS6vDdhBXzgo504NuJul 1pbCJI8 zNTnBFpqBDE2Y88xv6E4TSR zWPWvRYG7jBW4wM4teGzvvk toE1CcuFGvUsL8BIC7yDPpm D4txThh ksrcaA5oUgo+E80HQP7RCMP PUF7JGkc2T7PyZovulUR+PC 99REXgRJ24hWCxkJHwa2bgb Ib2JtKk GDCvRBE2nTqcWAklw7MaFRU mQ76kcPFjy9G2HAEhyVhdhV QmMwOypJO8kX2fTSakhjemy 2hvdzsn Ajvfl1wbpi43bH40R34kDCm wYFPzAQI7SNKbYLKsyXhqyx 5diK1dMj3+IHzsz1jtm3skt Sp5YvKx ALInltYjkFriNLD3x9JgLz9 4G2WptEjjr8OqAva3ri40pK Taq9T2qUU2WMktSKVniC8rN WxlZnQ6 ERMsZkVloK93bQUwOKcdPa8 vlUifvQwlGP3xUMBfdvxgKF DwmV8tLHOzpWOftQuhBV0hB TBpbjtm r048SzTdATK1SPNlyABmL0Z plA7gQaFwJKCpWONyK7RpwX FlNVpdE087BDhaPsA5OZYpr zFyQ2Un BIEdxMjeZkP0h1Z1Be0Lr3Y cjklfLAP3DXrlBSA0VqN0Ba CoVzB2L5SjUxz0EQEccLnyS S3iV3Gt VCTyfmhtdirkyVI1KRLsWOU ryN34jDMuGLlwTk7jw1U0j5 73LVVuGEXawN58Cc0oeLodJ TBwdCBU fG9gfedyg9gvwhwoYbSdGYY dJLe9XRx8SAGgyBrkCaBzCK G2FhC2WFY6ePCmqA1wrTnqj aaclN6y Oyc+S19zlX3mHWQ3DXT0ewt qWJOdhoUeSM98EX33L3AbEe wvdGFibGU+PGRpdiBzdHlsZ D6tZyWl g4eod0PsHQujV3LyWOVuIJt zMpk5HTBmMQY2lOV3pC7hSK ThECfsx8J8oBW6G3ExohHsi r4kn7zb DEXuWLigU99mpMNnh7P5PGE afYH9LCUqpLhhZiRbkK73Jj c+LOEkzAvcc2CdPalil6csf 9qjtVj8 TrVeXZPspvQmbRhjUTX1i1X fTd80Q22pDTtnOTZkYPQsCD QuZQUhpLnnrj6hqC2eVu8+P GNvbCB3 rQP5sG2iOFCtQaI1JSupS87 3VgIoiGCzAbcai4ulq3kjqJ o5WiAeCBTfihOmcRkxEPD6o 2PjKh96 P09pASrgOTPgFCQnKTFbHFD ljPemzd3ciN7dQs0+PC9jb2 msob83gR62lMH+HSLoCZK2n WxlPSdw JFJprB4lLNhsAhI4OYHhIrL lnP67fDHjKGbfJl6mxXvpkN utZZ3qPPOpzmfpa480NlLpb 2xkIDEw jMIzCAfsTIW6Q62ch2B0FOW aCFXyWUA8yUU3vA5pcXntes ogbGVmdDsgdmVydGljYWwtY PeuH621 IHRvcDsnPlBhdGllbnQgTmF vUZm4B1DmQyf4YFHssXzrOY 7paZMcDLzrIt4gbImonLehF Y1vLRDn ydsbq294AjEpm2kmQWVxhXN wRJqlTAI8H64lv9O9MACbEL IqBFW7kAX6zD8ycRneuuobo GVmdDsg roCwqQwnOWbwLPdyZ618IFE unMckSuNsgxJlSGVsdQK0VY 79OM36wSRxp0R0jBA7L2JxW GRpbmct vdtktUK7KQNjNGQomB58Zk2 deSqzIp7pNCYgCPJ7NWQpuV LjO5DuvW0rSfEdTBLeZCJzW 3RleHQt QPawV518QEghEmS3UXBkhzS sB3WgSFPmlEogXhL0u8G8Mt 2FU0X2KX09BK74pOMbm5F1t MJ7M2Kj VUUfwiihoadngPO3OVCqXCF guK95Mu9qiEfoTy7lDOTtSY A8MXYgkBJrX4DxmC2nCtUhU DAwMDAw Q9WxgDGsRDluN115OPemZkQ 5QHJljnYgB2RyQNRbpAgwFe B4t5J8Zl2CVBf9CL27IX05y XUab7H1 ySS8J0CxOHYyhjcpzlkkgJT 2RTOzQSOsqQ00Wr2rlKmuXe 6cKHEbSKZ9KMHgpZKhH7Zzl L8kJbYg OWSmDOFyS2XlePSqHGwwR09 9POlsIfC4GFWgaaQqV7BlOF HsxYxmBkP2v2S9Ca3VINQqM S45XEP5 rOS2EL42ZT70X8XsPxxkrWA ibGU+PHRhYmxlIHdpZHRoPS ocMEMrLlSylGiyPQ1aVn2fI GVyLWNv oQytsEIoEtNsb2rwCBAaDRx jPJ0oyGgzJ4EngJJ3XDMbq6 p9Si58Q72hP0ZqhAM+PGNvb GT0wZJ0 oT9wNsFvOkD0QRomG645XuA yxJReUddnu9olc1zgmJk5Sf W4JDFujyVlyBvgGAL8b1JlL b98J75p IHdpZHRoPSIxNSUiIHZhbGl eas0ezX9pHs2+AAAdpZU8hU Q0hW0iQiPsUqH4TEmeH307D nRvcCIv Ilurv0pcy7rohSf6XoOmHBG dxfSkwCwhAWY5i6KcLg87T8 EqjBian1MaWtd7ro41eUJkn 1U7aRF3 X8SmPOJjtejreZFhvHomYU5 kLYWawysyOBDxjR7vBDRoM8 a4UbTfYoP1LPkfP9GxuwZ8J DEwcHQg BSryGVM2L80sb4C4XHDaOBM pPAU7xZB9cR0xpJsmzowqwZ VmdDsgdmVydGljYWwtYWxpZ 246IHRv uFngXJMxrN5mLVNezHMxjRp aVL5sTMGkhdogYb8TU2SPNt wgSEVBVEhFUjwvdGQ+PHRkI CT4oEtw DIpqGTKmnU0hCZOnT3e0YmQ pXyX2FVnvQ0VkHBVgtiwsRe 08oQ0oTaWeYeF8LZzbN2Hgz lH6MKSb yMUuLSegXUB6E41oy7O3HEI tORVsYUM1vFA8lG9rcYnyzl ogbGVmdDsgdmVydGljYWwtY FwpD391 GMMvnRvqPmCnGzY6QnZ9MYK 2I6UuFsy6JKOckMysCF0tmN FwJDdsGq2sxGedcUtpMI1gP TBpbjtw FCJywP3pDYSzhRVkxCjwUG8 xHBXiukblo890IpMtITF8OD NfiWAwM6GcxM6hTuXgYNAjW DJyK7Pr kJVyBJocU494CXnpEgG4LMH befWgT7CaORKenVlfApI5i6 M5Ta5fZsMSVPFatcaxoLI+P HRkIHN0 wTuxKHtlQIRenT4eEZIiT0w 5JhHhFhF0SWzzI9RjGSWsek cpLk35tI6tLdAgEpZ5AXnfA 8ZxfoC9 INEdaLKeXFgdRBH7Z93bf8L 1GBRiWPFfITL4tRK1uF9txS lnbjogbGVmdDsgdmVydGljY WwtYWxp C794JRMwtSkaXsNbvJRgRYw vdGQ+ZLBzMQC7kZreVEdrDK WhsY5aJSShB7d1GlYsYnJ3R RtnK6Lo SWFjtzwdZs26gE1cWwAuJoZ 8THhsZ6AclqB3RUXzhBPgRK mgNWP0B64qc2Q9RATqPTHaK OC1tQL4 lZ9ubAaplviwkAGicSofjtD whSvyFAruPTrhI995PQYveX wzNx19jKUmwNsfvdG3K7KnR jwvdHI+ MZ80KWDyMW16mMTafIYmj6c hpAm5LbKlYQOoWJQ8kPykCH mjc5UcVIIcU02kdPPco3J8R GNvbGxh pGGpMoByvVW4bB0bJCnzuhk ov6myfxhyEoiyt2nadz87rK 32H26kQXmzDEQnDNXxIHAgR HZhbGln mm6ptY2pRk1+AJCqvWR2fAY 2rZ2iXjVxYaX3MChxI851Nx AnzLUaTlopx1vgz3mweIq3X jIwJSIg cwKizUjbAKO5t4HoHj81T79 sIHdpZHRoPSIyMCUiIHZhbG ecvx0yhI8wRn5+JJ4uj8edx h08pA92 dHI+LKCrZJR6iApdKUugEJG hsQ7kKPmxTiY2PZDqEsSqtH 75sNRyZBxfOc3nsWrphSylO S1lGAWb hhkwu227IeJpq0maHURycDU iPBlpCGZ5N50pb9B9CHGuJY SoTTS4kHA0jQ7gmLlqotyoj GVmdDsg zbNluTzbFTzlZSwtG594XGK qbBllJhDnkFFsA9pdolRYUZ 1lOjwvdGQ+SCCsFVO8eWhrP SdwYWRk kU9pSRGvK7s8DhAfLtG5XWi gX6RryaN1QAJbnBVbWOQriJ XItI0jqgnoz8tdwzusLkMcW DAwMDt0 LKo1JMVtoUliTdXfGMT1ByD 4VRF0oPJvwO2kyVazhxhaxL 9wOyc+RklOOjwvdGQ+PHRkI DN7dBro MPytYUQqiX8cZFBoA3w0EmO ySjG1QEnkG7NriqE1URJfwG RyCRXkyTJUcB8ttbwnv0vtp jogIzAw IGYuQRf1YCh9DZFcpSdbLpZ mQFR3XsT1SVP6aNIyqT0vqB ahmjyibY3hDde+TVJOOjwvd GQ+PHRk TFY2mQjfKPyyIVPojP0oNNF iV1x2TsZnIeY5RZxuT8Oolo T1CHNxvVKdVZGgdPPLoJ1pl cntq8qc ohnxYbRiGCNkQAm7BIx9QTE ybLmkBaMkRHA3PjM3KXQ6gZ JxtH2psOaztownjT0eJgo+U LS8ZYM8 GW79EY07W3KfGsxamWPdwWY +PHRhYmxlIHdpZHRoPScxMD ApWtDmdEcrWN1wMb0jJCRpK WNvbGxh cHNl (more content not included)... Normal [facility]/Cl inic Noteon 09-02-2021 Heart and Vascular Office/Clinic Note Chief Complaint Testing Follow Up History of Present Illness Jaz Sanders presents today for bradycardia and a follow-up of testing which included a stress test that was normal, transthoracic echocardiogram that was normal, and a normal Holter monitor. She reports that she has been feeling better; however, she is experiencing anxiety. She states that she had a panic attack on 08/29/2021, and one yesterday after her car broke down on the way to work. She has been wearing an Apple Watch with ECG technology and notes that she receives notifications every 15 minutes while sleeping that her heart rate has been below 45 BPM and is occasionally below 40 BPM. She states that she does not snore. Jaz has a history of hypothyroidism and questions if she has Pee's. She has followed with endocrinology in the past and took levothyroxine. Review of Systems Constitutional: no fever, no chills, no weakness, no fatigue Respiratory: no shortness of breath, no cough, no orthopnea, no wheezing Cardiovascular: no chest pain, no palpitations, no edema Neuro: no dizziness no light headed no syncope Additional ROS info: Except as noted in the above Review of Systems and in the History of Present Illness all other systems have been reviewed and are negative or noncontributory. Physical Exam Vitals & Measurements HR: 61(Peripheral) RR: 18 BP: 103/61 SpO2: 100% HT: 180.0 cm HT: 180 cm WT: 95.0 kg WT: 95 kg BMI: 29.32 General: alert, no acute distress Neck: Trachea midline, no JVD, no bruit Cardiovascular: regular rate and rhythm, no murmur, normal peripheral perfusion Respiratory: Lungs CTA, respirations non labored Extremities: no edema, no deformity, no trauma Neurological: oriented x 4, LOC appropriate for age, sensation equal & normal bilaterally, speech normal Skin: warm, dry intact Assessment/Plan The patient will follow up in 6 months. ATTESTATION: Documentation services were performed after patient or guardian consented to allow [employer] to record this visit. ANAMARIA fire support specialist and provider reviewed before signing. ANAMARAI: Rissa Arias. Follow-up No qualifying data available Problem List/Past Medical History Ongoing Bipolar disorder, current episode depressed, mild Bipolar disorder, current episode manic without psychotic features, mild Encounter for long-term (current) use of medications Hypothyroid Morbid obesity Plantar fasciitis, left Historical Gallstones Hypothyroid Procedure/Surgical History Cholecystectomy. Medications alprazolam 0.5 mg Tab, 1-2 tabs, Oral, Bedtime, PRN, 1 refills benztropine 1 mg Tab cyclobenzaprine 10 mg Tab, 10 mg= 1 tab(s), Oral, TID, PRN, 1 refills ferrous sulfate 325 mg Tab hydrOXYzine hydrochloride 50 mg oral tablet, See Instructions, 2 refills lamotrigine 200 mg Tab, 300 mg= 1.5 tab(s), Oral, Daily, 5 refills levothyroxine 175 mcg (0.175 mg) Tab, 175 mcg= 1 tab(s), Oral, Daily lithium 450 mg oral tablet, extended release, See Instructions, 2 refills pantoprazole 40 mg Oral EC Tab, 40 mg= 1 tab(s), Oral, Daily quetiapine 50 mg oral tablet, 100 mg= 2 tab(s), Oral, Bedtime, 5 refills Sprintec oral tablet, 1 tab(s), Oral, Daily Tylenol Extra Strength PM oral tablet, 2 tab(s), Oral, Once a day (at bedtime), PRN, 2 refills, Not taking: did not help Vitamin D2 2000 intl units oral capsule ziprasidone 80 mg Cap, 80 mg= 1 cap(s), Oral, BID, 2 refills Allergies No Known Medication Allergies Social History Tobacco Never (less than 100 in lifetime) Tobacco Use:. Never Smokeless Tobacco Use:., 03/12/2020 Family History Bipolar: Sister. Depression: Mother and Grandparent. [facility] Comment on above: Result Comment: Elec tronically Signed By: Jay DAVEY, Samir Rivera\.br\Date and Time Signed: 09/02/21 09:25 EDT\.br\Electronically Co-Signed By: Rissa Arias\.br\Date and Time Co-Signed: 09/01/21 17:11 EDT Coding Summary.on 09-01-2021 Coding Summary. [id number] Gh0 bWw+PGhlYWQ+RA2VFHEsP97 xhCTjqE5PG6aGVK1SGIUUBX QRIF8QFV8rlOU2MDarX0Qmq iAv UylfvPSrQD13HHc7SCX1eDv eUFfdsP2cpSEqC5y8LoIwBU 93yO50LNrwWHQtLlF4CzOuk jsgbWFy Z2koNsTghPSwBuw+PHRhYmx lIHdpZHRoPScxMDAlJyBzdH xpTN6iYm4iKYMxBQNdtSodj HNlOiBj m8mrSILxCXzaFA7naDdzU5W dzPW0UCFkz5m4Ea37rOF+PH FzBAJ1lVsdCBiml009DbFdw 3zcONE4 bWOgDWmtCRE5G87oq1Z9CIO bSWGiWQX0xMM1vX3ilMvmma bzD6SojQShZpF2NRB4tQTtk F0fhTtx vcejwF2wOud+Y25AHI3QFIO SFE4HPsj6O6QwIzewwJD+PC 14MJUeNU52lNAlaKTpa4jov Ro4WyNo BITbGJM1zGvbZZpgn0AdFWE wR30opUUrr2Y4YKZzrJbgeM TqXcXooAI6jH6uLYufvdhhq 2hvdzsn Majah8pnyl16fY21K46aFPr bSQClSCW2MQIiMQIhlDqogy 8maI6sPd4+YNxyo2goq1slh Wx5SfBy ICXnwkUydFljUOU0c3EgDa6 4A5CevZjfa1FbMkn2fc57oK Tno9I4sAH4GFcuQKKyzP5kI WxlZnQ6 PVSmEnQlzA07vQDjGGwjEn3 vyDlkfOmdCV2vHXWcxgizKF AkpE5aARMycIEiwBoiCS4mK TBpbjtm h473EnAaPLC8NGRjsFXeG9C daN4wVqEcQMVpCPWmS8EqnY AkVWmhM547UEhgFiQ2QFRyk wFvI9Jz HDXsrEzcFnI1k2B6Jd0Iq5T cbqdtSAP0XLvkTGO7EpS5Is RaQiL2A3CkXfv1BFPvjSdhJ R8wP4Ku ABMkessfefzzdCL5JPDyPZR gzS41lDEqMTatJj5fs4Z0d5 17UMEiJHCluN86Kl4vbGvyZ TBwdCBU sN7pjbfbr8shnfvuMvRpNEO bNPz8ISg7XVUuwIyzInOxXQ A7EvZ2EUV1nEErtJ0uqPnnj iulkH4p Oyc+C46qrQ6lGVM6BGG1hkx sYRXyurJsRM51MR21R6SuAi wvdGFibGU+PGRpdiBzdHlsZ F9eSgKp b5zrj3AtIAqdV0ByIIJgNNv rCcs8TURdFOA0iCS0rG5pSO YePXwfm7L4oEJ3Q5NgidGak r2ua9pi TPKlBAnsX49gtLVgw7C1HLV zzJR8SONauFpoPgCreN73Uu c+MHLhmCkxa1QdFaeid4wud 2wuqGl8 FaPiCHBcyzOroOiySFF8m7S gZk45N68kBAhyIQOdRKOzJZ UdVXNyzSicns5rzX1uKc5+P GNvbCB3 nCY1zP5sQZCoNaZ0CGhoL70 8FtNoqKKdRnljb3ofr7jabG y6IxVcVERaauThtQxzOZR2l 6TgVe87 E01jTTypUVLnFPVrPKYyGBW loNvwtx1xeQ3nCk4+PC9jb2 svok71jP16dKX+WWXzJKC4o WxlPSdw GYSdvT0dGEzhZkT2WOUsLyS njW33bGWwSAawCm4zbWvsnH ftDS8mJBYbagabn835PyLsz 2xkIDEw wXFkMAfvZWN5I50cc9H1GOA bJVFkHIE9eEO2qS3wkDowpf ogbGVmdDsgdmVydGljYWwtY VdnI897 IHRvcDsnPlBhdGllbnQgTmF mXDb0V1CmJbm0RFLeyKtdAK 4jdYKvQHxtKa6ouLafdGttK E1jWXPu wbvdp693LiLci7ndSJAbzBI eDFkoJPK8M35ou3Z7PMIrMR UtDHG7aPJ2uH0whGdudzuyy GVmdDsg avMquOkuKKhcUQzpE605KOO uzGgfIqHplzRrPVNobDF2ZY 94DM81tKKuw8D6fWB8B2XxL GRpbmct gexugID7HCMoIKNwjT68Gk1 tuAghMm8hSHVnAYA5MMOsnH OlH1JnuJ3qCdZwQDWnBDDdZ 3RleHQt CLiiB542CExhNpB9FGYkeaW wL0QzDOBoqWalJqF4i3C2Zp 4DT3Z8NA63AY32jWRxr3H0l RF0A5Oj WZZvxpsudkzksHL1ZXOaWND lpF45Jq0xwOwfNi4bCNSrKN R9HJBsoMWuQ7YumJ5xCjBcH DAwMDAw C9ZneJKhDIzvJ671VRukZeV 7OGRhamInX9EmQFFooNnjCt Y7a0G8Ea2UTFh1HR83XD47g FDpv5Y4 nGN7L7NbLYOazbwqlsmeeOM 7HMOrAKJjxL82Hz0wjInsQp 5xSFZyEGE9XCRouKSoB4Rsx Q7fLaCl SVFuIIHtW3IrfZThJAzdP76 2QCtwGsY6YNStluPeF5PdJI ZtlTenWvU8j9L8Nz4LLCTvF G91RWK2 iLH6AW37YV78R6XsLsjxuQB ibGU+PHRhYmxlIHdpZHRoPS bhVYAxVmDduHqpNG9yWt9vX GVyLWNv fNwcuENmKePma6jvBYWoSLn dKP1muKykR8JhoCV6YSVff2 i8Qt01Z04pT9JhiTX+PGNvb XA2kXC2 rI4vNnSnUlS6JLtxW000HkS okHZrJnelk2tmj0udcPx6Ri O2EXOawbOkrBqqTMF9o1HsY x82D30d IHdpZHRoPSIxNSUiIHZhbGl wrq4xjK3rOx9+MRGdlKG8mO V9wU0qHbFfIuF2QPzgP243E nRvcCIv Dfzlq1shy2uloJb3EgZjRWN foaYobIbvGEV6g2PkVz28L8 ScvGpyg3ZpOde4lk61pWPad 0A6tZQ6 R1LrNKMsoajfwZJgkLrhGX4 tRCOcheuyLEDpcH4aZJXdZ5 e9ZxUbSuV6QEanM9ChkhF8G DEwcHQg JMffBEH7I80za8Q1EKWpFEU uOCQ7lEO8eG3hpErzjsbffZ VmdDsgdmVydGljYWwtYWxpZ 246IHRv jYjlHKFeoQ5qKQKjfBFjsBm mYI1fLHOujltvSh6HX9IEIe wgSEVBVEhFUjwvdGQ+PHRkI XA1vZgx XPxkBDHalP5jMTKoM4k6WeY nWxL6LIhqG0OyZGHezowtGq 29gV0pIuCoZtA6TAejV0Uwu eQ0FFZh sKUdNNenSWA4O03yl4R0KMY mUVAgAPA4iTJ8jO8wbGdyjv ogbGVmdDsgdmVydGljYWwtY GiuF028 JVXizHpxUbBcEuJ6XuK5IOS 7G8WsSkc1EKGyuKqxJX2ulJ GxSIbbSr9oyUfqhPqmUB0fV TBpbjtw TSUwzH6rDDUrkOFyeBglUG4 oTCUxtalpc759SxRxOVD1FU HnmOUfT1YxwF0jTuUmFBTqT KDqL2Ym qRDoEAmdM886PBzcOwU5FBM vmtSdW1MtMRBvlNfnSuM0m7 Z3Td3cMtBCVIHlkmfciCD+P HRkIHN0 oMaqCXglORXtxG5jRUAjD5l 7RuOsGnG9JHwjS6VaFPTgcj xcZe36iD8eRdLzQhY5CMsiK 3WneyF9 RXTzwBOkWSaqPWP8D27ys8G 6ZECpXMXyKIK7eHW7uD9myI lnbjogbGVmdDsgdmVydGljY WwtYWxp A237HEUqjQvpNwEeuRYzQZu vdGQ+KUOfEDZ1pNefAYikIB FclI3eREZqJ9g2UzTqYoN4B SzwN9Lq CDSgktqpRa75rP7zWqCeZqF 1DOxzD4SfvnY3LDRptANqOA wuOMZ3C49sq7Z1EPWzSHApK SM9fXR1 yA0eaJawaedjiWBxmHqtozA ceGhkEPdwIOhfZ430PPClgG cdDt28sJYqaXleauF0Q1KtK jwvdHI+ CJ09UVBeFW06xNDcnHXeo4p ksAq7WfIxHWHpGUW0wPxyTZ gyb4SoFNApP34nuUMnn9H5J GNvbGxh fZJzKjOdcKG9rP4jBPmjvzx vz5hlfcfvXkrpb2zkaz80gG 75L66eCChlYUHaHIHtADIzN HZhbGln nr4fzB2wIm3+SUVqiDG6xAL 8pF1dGaVjFaK9WWexA865Zv HhvGDyBdrfn5icz8tniZp1A jIwJSIg khRdyFywTIK0w6YaZe67E04 sIHdpZHRoPSIyMCUiIHZhbG ohpi5irH4nRl5+WU7ei4die c94tP81 dHI+DCIqASR5gGzuVTzdVPK leK1hULfyZxW4IJJrCwEbiA 14pIRyFHipJz7wvDqmuXpoM A9tSFSg hqagk028XkNze0xqLNWjjNS iOKjdPEU2O55mt4O8WGFePZ MbFXB5yEM1pQ0ptFivohqmo GVmdDsg xgSqjFmeWObiEMuhC874DBG gpDiwTtJabQAjQ2aukaICWK 1lOjwvdGQ+OUBqHIK0qPejG SdwYWRk uN6qCWZxJ8s7VgZfMpE0SJa sP2VarzW2VUYlfAEiGHAjaI LXeA7hqpaek6wuaybnRyCfQ DAwMDt0 YJl6RJSouYrrBtKvMBV9WhB 1HLN2wYIxhK3tvSxxdvunmK 9wOyc+RklOOjwvdGQ+PHRkI GU6uPos BGbqZGUwwZ8bHXMyM8i5LgY hQiF1JRgqV8JswyC8WWWveZ CrGMJtgDGIqP1lncwvx9ith jogIzAw BGRiDOm5FUm7SSNqsTxzFyG gNDB2XhG9AWY1lHCwzK1yhU jqhuuhmL5sMkr+TVJOOjwvd GQ+PHRk NTF0cAazCShzPDBdcU4sNAO kE8d4KkPxJmV2ALonU0Dqjt Q6YSRzaLGcBMFcaBJKaJ4rz siif5ct liacZuPrPOHwJVo8VZr9PJE znPehWyFmUOJ5QqK1SZU8qG ZcqU5omYtxntgqxO2cOwv+U FS5KQQ6 AL23BK95Y5FdDckimNEifIA +PHRhYmxlIHdpZHRoPScxMD EjLwJquZucOO7aHt4oLSEhM WNvbGxh cHNl (more content not included)... Normal [facility] Consent for Treatmenton 08-16 Consent for Treatment [id number]#1.00C D:127 Normal [facility] Progress Note-Physicianon Progress Note-Physician [id number]#1.00 CD:127 Normal [facility] Holter Monitoron 08-27-2021 Holter Monitor 48-HOUR HOLTER MONIT OR ORDERING PHYSICIAN: Samir Thompson M.D. INTERPRETING PHYSICIAN: Robin Salazar M.D. TEST DATE: 08/06/2021 REPORT DATE: 08/26/2021 DURATION: 48 hours INDICATIONS: Bradycardia. No diary was turned in. REPORT SUMMARY: Basic rhythm: The patient's basic rhythm throughout the study was normal sinus rhythm at a minimum heart rate of 38 beats per minute and a maximum of 145 beats per minute. The patient had 0% atrial fibrillation noted. Ventricular ectopy: The patient had a total of 5 isolated premature ventricular contractions. The patient had no ventricular tachycardia noted. Supraventricular ectopy: The patient had a total of 16 isolated premature atrial contractions. The patient had no supraventricular tachycardia noted. Bradycardia: The patient had 1,990 bradycardic events totalling 10,609 bradycardic beats. The minimum heart rate was 39 beats per minute. The longest bradycardic run was 46 beats at 46 beats per minute at 03:42 on day two. The patient had no pauses greater than two seconds. CONCLUSIONS: 1. Essentially normal 48-hour Holter monitor. The patient had rare premature atrial contractions and premature ventricular contractions noted. 2. The patient had several episodes of bradycardia most of which took place while the patient was sleeping. The patient had not turned in her diary so we do not know whether there is any symptomatic relationship with her bradycardia or other arrhythmias. 3. No ventricular tachycardia, supraventricular tachycardia, or atrial fibrillation noted. 4. No diary turned in. READ BY: Robin Salazar M.D. ls Dictated: 08/26/2021 [id number] Transcribed: 08/27/2021 cc:Samir Thompson M.D. [facility] Comment on above: Result Comment: Elec tronically Signed By: Martin DAVEY, Robin Galan\.br\Date and Time Signed: 08/27/21 10:21 EDT Holter Monitor [id number]#1.00C D:127 [facility] Consent for Treatmenton 08-16 Consent for Treatment [id number]#1.00C D:127 [facility] Coding Summary.on 08-11-2021 Coding Summary. CD:[id number] Gh0 bWw+PGhlYWQ+MX7MEOXoT16 qiVBbsI6GT3yQMQ2YWKUWFK JZXO1JDW2mdYB5KWwfW4Clk iAv VupmyTKbZU46IGm1QBG0mOk zQTnmyN7wvQUfH7d5UfJaHS 66zD22BRmhJVNeTzF9RgMgj jsgbWFy F9oxTmOuhYJoJud+PHRhYmx lIHdpZHRoPScxMDAlJyBzdH jpDR1gWn0zCXMoGZPlgUqiu HNlOiBj r7rvUNEeBLmkXH0roHhpM3K ynIH4DTWql4c8Lz74rUO+PH YbOAN7xIuvFOzvj845DxJzd 9qeNXR1 dEGaGCyhHDC3F87yw5I7CUW iFEEwLKJ5qHG7pW9zwPmdrm niV6UdpTNdLgQ0UZL9pOLny E8xnCml kttqhU1iCoa+N01GXR9EZTY WJE5YVkr7R9QvLeqdcHR+PC 39XZDfQJ50zYYmaTHgp6djw Sl2OeBg OKSzSGD8oMmzJCspq5JhEYR hW63deCAsj6H1TZPseKjngR BxSgWofNU5aA7hNUdgcvapx 2hvdzsn Giucr1smlo79eL92R66sJOz bVMSdEUG3DLIsZMDkaYiwvg 4eqA2vCe3+VVqsk3nqu9ovu Oj1WtEx KYLhlmHtyCunYQV8m8BlKz2 3H6TjsGoid5DeSzt5gh82hS Fyk0F1nRQ6WQheJLQghV5vD WxlZnQ6 DZEoWnWqaP56kUXvWXurGt3 vaWovrKazCM0bPXXnajzdXI AtrD1eGSMloIRppDchOK9qV TBpbjtm o213FoXsOPC0KIDalZRhJ5X bqQ3pZdCtIZHqWFSsJ5SqbI FuHMpgN378QUqyYcN2JSUrr qHcD6Xe FTTboPgaUpS8s0E2Sx8Gs2B yfgsnYIN0LIdzNXU5DeM6Ef QyDxY2K7MgLtv6YMQuzTtrF B4gH1Ts VROkourhsdhqzET0WHMbBLN jjZ89oSBdFNobYy9mb1A7v1 90JEJuYECrnN72Ze5kdRkbZ TBwdCBU zZ9margnv8nxdutlFuGuHEO lDOd8PEq7DLNcuIpcAhMhPL P0DuW7HFL5cCAykI8bdLmbm dludM9x Oyc+W94bgG9sEDZ3AKV5aut hZKAahtHdRJ69LQ88X4HhXo wvdGFibGU+PGRpdiBzdHlsZ P6tUfYi x4pmi6QaWVsiK1VlNIDeXZi zKck3OTMwNUJ7oPO2eH6mCN GnIJwry8C4gCD3E0IypeXlf k6os7lx UYXyKYxnI54yyMYyz3X1LAY bwZR3VSSuxGpiSyXjhB26Ox c+BSItuAimq5TbUusdr0upl 2jqnFt7 XrBsVZPgbvXxkOzkTNC8e4V wCf00K96aHZioXKYqUVEeXI YcIHPuwNiaog8aqH8gSs5+P GNvbCB3 wDR9sE4nKUUeGhF5WQazM67 8AsZqaEIaZuofv7pox2srcL c0YhJoHALajbIatFsxHPM0h 5VtUz34 Q82tBBpoUVJdLSMfGYNvFAZ yzEugrc1jzX6sXm5+PC9jb2 xtqk60gW55wAW+KYIcVEY4j WxlPSdw SUWtfD9sFPzpKsB4QBBqIvQ zzJ16wXJuNFpfBh0grVgjmW isTS7aRLPpxfyki071GxPyy 2xkIDEw gQRpVXlxJLT9B57sj3B9UPV bIVXqQKO8vGM4wX3oaJnugy ogbGVmdDsgdmVydGljYWwtY FzcY620 IHRvcDsnPlBhdGllbnQgTmF gODa4R4TxNlz7FBQybNamXN 3rjVLfSVkgJs9hnXvjyUpiI H4lFFKs vmzqm230GeCrw8tnUOXijUQ pXLgiPQC9B02hd3X3MRMcCU DlQFP6gZI6eP5vdEnlakttg GVmdDsg kcYwqXlaLUcmHIcwC046ZBM etQddKdYbieAxYAFhsQC0WY 35DA27gPFny4Y2eUD4T4FaT GRpbmct allmjVW5XTWsIKTkiB01El8 mtVkfQg0fHUWlXUL6MSOaeA BpH8TfmJ3zMbNxGTSsAOYyI 3RleHQt TWtpK105HRdyDaV0CQAlbtA aE9PhDAAmmDtpNjW1j8V3Vs 7DI0V4JM96TR16tACwz5T6r JK4P2Aa JHPxubigmmztmCT1HCKyWFK yaX43Xc0zkYsjZi4gLBMfDF S8SPUupNWkE7VvxP4sVvRgC DAwMDAw D1EzpSWeRAtcC104QTroNoZ 9CJFpjjQhQ6OhAXUinPvsHd M5m2O0Ss4LZIy1QY59DZ70u CEvw2L0 mAB9F6AcHKWjpqoljfuygBG 1IVDvKLXslP07Oo7qiFyzTe 1uWUZoRWV7RQXlyWUxL8Weg A6qXaLf PKAbKKYdX6LsaMHxSBlgS29 4XZnzHiB8ITKwcdEfQ2YgDB JlhRyqXhC7v3L8Ad7GKIUwT D39HJN9 iPX9UO69KM28P2YhAoayvRP ibGU+PHRhYmxlIHdpZHRoPS mlIVArPeWudVkeTM0aUx1kB GVyLWNv oLtxyKGsFkEve4veKGFqHQe nQA2kuUbmJ0GqaST6QLTfn7 e2Ft66G10bM5JzaMZ+PGNvb AS9lOG4 qP1tDoLzVbW0IMkqX843IpY ndDSgQmejf1uvx2sgxYw9Dq H6UZKpngAfqUcfKFG5k3FkE w58Q10r IHdpZHRoPSIxNSUiIHZhbGl kxn6igW5zKl5+VPNvzHR6vD F1wW1bOnNlOkO9MElsR168T nRvcCIv Oezhm3fuz6cfdVq1AnBnLGC txvZtcCnaKSW0w4QuRs63K3 KdtNsbc8ExTkb7qt96uSGau 9S3mYU3 L6PnCPSodphadUPamQnkEY2 eGPUiurjiILIfdB9wZHTyS1 y6GkSzVlU8NQgnW1VkamM7L DEwcHQg BKmkOCA9T50fy4C2UGLhPGB wIVT5hOB9tP2dcBgmgnoudT VmdDsgdmVydGljYWwtYWxpZ 246IHRv cPogCCRlgD6uOIQaaEGrjFg uXL9pTHCythhvLt4VK2IARe wgSEVBVEhFUjwvdGQ+PHRkI XG1lBbg JFmmGXHafQ4ySOXmM0e2TvW xOpR0OTkuL6QiDZKjyimbKd 10fJ4aOuTkUiF3LRvxL8Zux wV4FLIu hSFvULlzNNN1U08ud7S2JGH wKDExFBV7dRK6sV2cyDqbob ogbGVmdDsgdmVydGljYWwtY TvpK746 SHEefEjoWwZmTzE0TyQ6VSF 7Q1OeRip6ZHWikIgkSH5vrL ZwKLtuTl2rrWquwSrtKB6xD TBpbjtw EBAsfL3jQWOhnTYryPccNX6 uUODxenwic088McPnHSC4KP XawHNiO4UiwN5rLzUmIVQoN LDlY7Jd aJBbBGvtK820LLehJsJ6SMW rgsThR8MxRUZybLcuGwO9h4 H7Sa6pPzLJZBQphizhcOD+P HRkIHN0 uFgnZXqfRWBkiB5kPUXiV3j 4FjZwQiY2HMlaG6CsMLGakk xeSs18pZ4xImJtHgN1OEfyQ 6GgcnN8 WCIsePNtSXthEFQ6T01bj8F 5KNTzATHkUAH5mDB2nP5kiF lnbjogbGVmdDsgdmVydGljY WwtYWxp F792BHBgyGwpOiDazJKoJVw vdGQ+UVZoUAL7lRqwRCczDC LxnS9mQCYdP5o6VwGnLrG4Z TfhV8Eb ZBHredzwGy05hO1dFeGsDaE 5CYkfY3QgqoU3KOOlxSIyGN biUBF3G49yx8I6ZEVhOJQnJ UP8mDF4 qS8grMmroiywlZTamBmqruP fdQhdEDdvSQmfG256WKJpnN mwNu84oHPveFsbkhJ4H9DuG jwvdHI+ RO53INLjYA54lYUlkTDad3b nrAc0MnEzKCTjMBE4wDerTB riv0ZnSPTcB90vbNZdl1X1H GNvbGxh rYCjRaVxzGY4vN5uSTydyqi tr3vcpmwwKqmlv8qztk90cP 79G60vVLqbHNAoFURpBHEtY HZhbGln xg2pjY9uAx6+ZKNivGY9jAW 2fD7iFdVlWdV9STgpS227Me JhzVXjFlvlp6gji6omgTb2M jIwJSIg gnWpdVfrDCB8s4OwSu41V31 sIHdpZHRoPSIyMCUiIHZhbG zpcr2ntH6oXv4+BJ6mk1fvl y14aG02 dHI+LWTuINA3cSfrLRlpEBV dcY1nTVocAoY1PPPvZwVisV 85gKKgOZqsRj7muVcwtKicP E0aBAJq fykde722YeMty6haSFWtbPA cNDgwXSX3O13yz6U5MYHiHG NlOND9jEK6wV9quDbinqpat GVmdDsg pyUdvQouMOdsSXcmG579RST guRiiUlCvcESqB7jebsWUHW 1lOjwvdGQ+LVNtTLM6nXnaL SdwYWRk vW8aINDaF4y1KxMqBrD8EXt jU6MzxkU5WUEcnUSnLEZalQ EYkI6wgmkru2nelkouApAgH DAwMDt0 TOa0ETAjpOkyKyGaRBK7TxN 7WPM9mGKshY6xaNlaoaoznZ 9wOyc+RklOOjwvdGQ+PHRkI TH0iPcu KIjcGIPzzB0hRICwC2g2NsB iAiJ9RNlzV2SlotG9RAOchY ZjIZRfdHUGfL4bukohb2foy jogIzAw UWXnFBk9IVg8YZDrbKfkIoY bKVA0HrU5XJM8fQHdyM8jmS pweusidC8wAia+TVJOOjwvd GQ+PHRk UDF6oOpfTKilUEEjeL1lZBC wY4k2VlVzDnG7WYaeW1Ejcx W7IFNxoXVvMHNzpJCNtW2bu tzss2dp gxjbAiEnZLDyVEy7NDe9BIF oaTvwSsDhCFD4FnZ1ITF8hA SjoU7hePjujpeuvI9yNwe+U CG7HQF7 WE94PO79N3XrYlwjfBZuxZQ +PHRhYmxlIHdpZHRoPScxMD YpGqYcwOsaJO5pKa9fWPOkV WNvbGxh cHNl (more content not included)... Normal [facility] Stress EKG Tracingson 2021 Stress EKG Tracings [id number]#1.00 CD:127 [facility] Consent for Treatmenton 07-18 Consent for Treatment [id number]#1.00C D:127 [facility] Coding Summary.on 08-03-2021 Coding Summary. CD:[id number]:[id number] Gh0 bWw+PGhlYWQ+DE0GVSPhR82 leJLfmM2SW6nBAE3ZSMGBVD WZZB4SIV6vvIF3BGuwF0Tjz iAv FzoztVNrHJ24HHh5WWI2aOl vURrenU4khZBsW1g9QoIiNR 72mS84HCvkWOEaKmB9TfJvo jsgbWFy H3weMsGqyXPvLer+PHRhYmx lIHdpZHRoPScxMDAlJyBzdH ehRO8fKq7eDYDkHJPpmBkdf HNlOiBj g4otTTQsXHpvDV2xdOasY1I mdWP6IKMla4t8On06rPC+PH KlGAR4xPabAEiym304MgXni 6kdWHC1 kKRcQSkqJQR5B92dh8M3ZZQ lFVBtCVH9jOF2qM6geRwman zrK9UbsQNeKpD6ROZ1wHEkv B1snTsm fjalmD5yEog+T89RXI0BKYH AMH8BAwi4Z6BdTsvooGK+PC 87OLRtIJ65pOHseQOhm6ast Li3KfWr ZIYiQTF7wWddHLhzp4HpLHS zG73yvZKkl2B2VZDraRrceA OsCzFnyQM6oY2wXVwokdcvu 2hvdzsn Swfvw7akqf93tF14W61sCBt gJWQaDGM1CFRdMXGigJyvpe 0ouF5xMr5+LQrpp2lqf2zka Or0LnJc KYWxcyZhzDohSVZ3l0McRb0 3M7IlzCgbf2YjRhw8sx15xY Pnw1J5mEG5JFrrRBOosZ9sK WxlZnQ6 KBYiWeQahP78lTKzEPnyDv8 knHglwVnjLA6vNDJxjremCV XtzW3gDBAtcSJiyPggEQ8dC TBpbjtm s351JiFdJGK8FBQduDMnD8E fuW9iDyFaNSHmZROjU2DspK ZhQGzdY779QIhhCwO4JYGjk eVnY1Bz ISYaaZbcLxQ8o9L6Cy8Hk6G ebwldBDB8MOtiCPX3IuO8Dv CrXtS1S0TyHnz9GIPbmKggA E8qA6Rs OKDdztqqfgvrpMT1MVWhDSS psW07gEAsZBiyCw6is3D8o1 92PUGpLMDeaY98Na5drUztC TBwdCBU nU4uquhdt4agfecwArVhLRP eCWq5BIx0KUXzuElrSaTuHR G7WiS7KYH8fFCywO6cgOedb vxqeL6f Oyc+O10hkA1rVEL6RHC3hht yFEKuqeSpEF98HK12R6ShKc wvdGFibGU+PGRpdiBzdHlsZ A3dRhWt s9eyt6NuWXrnP8SfUFOgMId jRwq0JHIaLLI3eFC9bA8bFF MnJBbuj7H9uPT9V7AwuwUwg k5bm1gs YDPyTGxxC60ijKAcu2C8UZO biTT5DCQmtHrgYlBgpK93Al c+LSTapTikr9YtIwfdy9ttw 0ckpBj8 BbBsFPMvsxHeoKxeFRJ9p1H dBr77Z91iVIrmWSPvAEPeJG JbKPFncLuryl3zzV8jXo3+P GNvbCB3 pHF3iQ0xUDGdLtT3GIoiI55 6KdHlvBZfTtgxi4zrt1qfrW p2NtVnAHXjbtBfgOvxJKT0m 1CgZh54 K34uFZxwPBJjMZDwXRFmHXQ wuWvsuu5jnF5sOu2+PC9jb2 ymfv63mG16wXG+HKKzPTJ0t WxlPSdw DAHwrJ0qNXqtXhN9HMZoGbP bgE51qABeEOapBp4yfCuedD yiBI2vULWmyszio502YdKpg 2xkIDEw hWQbLTsbLFV1A23na8R4LDL fDPFwMAT4wKV3rW6hmEjudo ogbGVmdDsgdmVydGljYWwtY WfmL588 IHRvcDsnPlBhdGllbnQgTmF lRIh0J2DoFro4GXYadLgoZK 7mtJZsDHbzHe2unVcumGdlQ G9zZNDy cdojo508WgGdv8idAZXwtGI aADsuBPX2Y41qd4I3UUGcPB MmCFP0bDU3iF3eqMlgvmvnq GVmdDsg boLnwYgvRTjlMGowH134BOY xuTphBwInyaAzODJbeAM9VS 93FE34bUNfz0S5eVL7U2WkX GRpbmct ztgjsEL6LSMcEPSwrT23Tv7 buWspFs3nBYClGLK9NFMosX DqG3LdhX6pKfHfYVPfJBBlU 3RleHQt YRqaQ675RYeiKlX4QGJfwjU tB7XqCNOooMvcFsO4t1S5Pp 5AM2E6QM39JD39hXNvl5O7p BM7A2Pj BVYhjxkcaiydoCP3YTZtHGR wgZ08Wr7khWcbTk7xAGQyGM M7QSJabNYdH9XsoK6gCaKwO DAwMDAw D8TmvTReUUnqG267YUkdMfU 2QVAveiXaC7VtYVQgvFlnNt Y0g3Z4Kw3TVUb8YT66RM68r ECmp1K7 fOC8F8EgNSRonilsgsnzcBY 1IRLqEZVcjR39Cc1qrIcvKh 2jJLQmHTD2EITltWDnA1Bvk O6jKnPa EVGgTKYzT4XjmODkGGxiX73 9JFytQgR9CTXkffHoN0MdIF JytDiaOyO8i9U1Fw9CELCcO T60DVR5 uXS6YB05ED62C2XvRbhgrVG ibGU+PHRhYmxlIHdpZHRoPS uuRTBdUoQsmZtdJK4hQy1eB GVyLWNv pTdyxINnUbExa5kfJGSbFCw rOJ3cxHxwJ1QckJB7GBAdn8 c5Fd91U40fJ1TsdXN+PGNvb XQ2qZC4 bZ5aOnGsCbY2KAitG547DmV jpBNdKkbid7lzh6ydcLn1Rq M8HDJdkgTigLeuLKS1v6WxP h96R67w IHdpZHRoPSIxNSUiIHZhbGl tda3tbE3dVq8+CHPclTC0uQ F0dC3jTiBnWnK4VVrmF847I nRvcCIv Zbisv9jon0sxvVm9EfVnGWX lpwEvmJkcYHL3i6ZsRi25G5 GkbUrtj2LfExs6sz85mRXob 4Q5mNO4 L1FlMKBkhbvziSCdkSexRU5 iXUDprgaiFSRcbP0qGZAdD3 e1QoQcMbY8JQtfN1FxflV2J DEwcHQg ZBaeWSB5S06bd8G1KKLuQZY aZVH9yNL4xT8vnJtuoosdnW VmdDsgdmVydGljYWwtYWxpZ 246IHRv rMtnCUYngH3rEZPipYWgwJt pOU5lQBZptdkvNd6MJ8WOGg wgSEVBVEhFUjwvdGQ+PHRkI MF6sKmv BHrgAVOpjJ7wIJThE7m5ZoV lIvS1OCtnI7YuDCYbmroeFz 06dI5vZoImSqW1MSmpU4Frg xP9HIJd aTGeLHoaXPK1A38dm5O4EEJ sERYrZAB7mYZ9zN9cgSfpeq ogbGVmdDsgdmVydGljYWwtY RmgI839 IRSlsQffOcCdIaB3IzG9SYU 8E2CdOlu1LOPomTqgIP4iyO FpJQkrQb7enRvooQfqSM0uT TBpbjtw PKJwiH7uTUZexQCacQxzFJ8 kPWHkdayyb129PsJnWDY1FV GebSYvV3FctE3gDmNdTICzA SSnP6Ra eGOlXNpuM322SLgtSaW4JBT nbpUwH9VkSRSsqHaoIgR8x8 Q5Zp5vYsFOTPHsscyndOT+P HRkIHN0 wPwnYOmvHMKcaK8wJLYmY4c 4OrZgMkS1QNpxR6NzTLQchq jtSi55zW7yGrMjSwG6UFvvB 7IslwX4 BSXvaRToCSlqYRO5C20ya7F 5BDYeSQEwRCQ6lHW4oP3smR lnbjogbGVmdDsgdmVydGljY WwtYWxp X767LHUcoVezQkVhrVKzMTt vdGQ+AMOrYDT9aWnjXRyvYC RgjJ3kZQChR5p9ZoHvWtE9K BiyZ7Ci KMWywjyyBg96xB2rDaQgJeV 1CVtbX1JudwF6ZYBfgGFuPM bsPDU3B54jy8X2WAUlWLCxD JI0aGO1 fL9ekBjhrcennHDvqNwymaQ wnZmgRFeqGZlzM309TCSprA fiYr31tNQfmSgzalA8I5UaI jwvdHI+ NH01EZYkRK22uYKmrUEeh7g nkCq0QmFeBLYsHIN7lSqwNQ vpk9FsAXStW54heQBsw6D9D GNvbGxh xBDmRvYziGO8rC4cRGvskrd on3svgcriXqzfx5emxs68uM 37R36kTCudINEhQIVuVGZcI HZhbGln xc8iyQ2uEq1+AOQoaZF1dXZ 7gX9lWbNpQhX7IQmwU531Gt GjaIUhWbrtx2stw3blvPw6U jIwJSIg bjIvkXwyWHN1e6RdLx98D84 sIHdpZHRoPSIyMCUiIHZhbG jxpg0feG9hKh3+KN0bg5ksl z90cO43 dHI+REWnAZH2sShjREcsLHV hwA8iTEneWbQ0HTZxCgXvtM 71tREoJNfoYs9nyWpfmTwiH G5zMTPe fsdzh789XwJpb9vvPPXexIN dROtgOSG7F96fq6Y3SBDnLK ZdUQO5cHU1nM1hfXdsbbfrs GVmdDsg xcZxfDrcTOocNSnrV430MBV zoXhcCoOuhTXmQ7dldoURXX 1lOjwvdGQ+DAWrKJP8tKwmL SdwYWRk jK0cOBHiI4m7AbZvEmM5FJz uJ6YycbD6PPUgnEJuCZDytQ XQyN4pcbohc6ebhnwfKjDnU DAwMDt0 INp0FPXlyCziMlHpLLH4BuN 9HBZ9kABllP3yiCqocrnebO 9wOyc+RklOOjwvdGQ+PHRkI PM7kGuh RLsnNEOigM2wXZBfJ9s5BrC jFtA9KDsuW5TrmpT8ABTptJ QcKYAhpEWFfU4kmrigv8ytu jogIzAw YXAcLPq4OOp9ITOnsGrlMfV oYFM3TrN3IOF6iJJxdH4jyM nnbndayX2oQiv+TVJOOjwvd GQ+PHRk WTJ7rWlwBWrdDJBryG1vEYK xA4o0EjEyZjZ0CVnhH6Veap A4ZWDfdCUeFYAuaWQObC6ad hvxt3dm zxjxKlCeQPNbLEs0QTk0OSI ivAinGxVzDUJ2LyI3XTU4zS XpjD9otQyizhvbmF5bRkp+U CF9SYS2 UF04GQ26C0GiZejewRIyqXK +PHRhYmxlIHdpZHRoPScxMD KgEpInyPkdFV2iUd8qZGAiS WNvbGxh cHNl (more content not included)... Normal [facility] Progress Note-Physicianon Progress Note-Physician [id number]#1.00 CD:127 Normal [facility] Heart and Vascular Office/Cl inic Noteon 07-27-2021 Heart and Vascular Office/Clinic Note Chief Complaint Bradycardia History of Present Illness Jaz Sanders presents today for a new patient evaluation of bradycardia. She states that she underwent weight-loss surgery in 04/2020 and has lost close to 250 pounds. Prior to surgery, her resting heart rate ranged from 120 to 130 BPM. Currently, her average heart rate is approximately 45 BPM. She notes that her heart rate increases with exercise. She presented to [facility] ER 2 weeks ago for suspected nephrolithiasis and states that her heart rate was 36 BPM during the 3 hours that she was there. She had a thyroid ultrasound recently that showed an enlarged thyroid; however, her thyroid labs, including thyroid antibodies, were within normal limits. She denies a history of Pee's. Levothyroxine is the only medication that she currently takes. The patient has a hernia. In 03/2021, during her surgical evaluation, she was sent to the ER for bradycardia and arrhythmia. She underwent an EKG and reports that it was unremarkable. She admits lightheadedness and dizziness beginning 9 months ago. She feels that it is worsening as her vision blacks out upon standing too quickly or bending over. She denies syncope but admits occasional chest pain. Her shortness of breath and lower extremity edema have improved following surgery. Occasionally, she has heart palpitations secondary to anxiety. Review of Systems Constitutional: no fever, no sweats, no weakness Skin: no rash, no lesions, no bruising/petechiae ENMT: no sore throat, no congestion, no hoarseness Respiratory: no shortness of breath, no cough, no orthopnea, no wheezing Cardiovascular: no chest pain, no palpitations, no edema Gastrointestinal: no nausea, no vomiting, no diarrhea, no GI bleeding Genitourinary: no anuria/oliguria no hematuria Musculoskeletal: no back pain, no trauma Neurologic: no headache, no dizziness, no numbness, no weakness Psychiatric: no sleeping problems, no irritability, no anxiety/depression. Heme/Lymph: no bleeding tendency, no bruising tendency Allergy/Immunologic: no recurrent infections, no impaired immunity Additional ROS info: Except as noted in the above Review of Systems and in the History of Present Illness all other systems have been reviewed and are negative or noncontributory Physical Exam Vitals & Measurements HR: 65(Peripheral) RR: 18 BP: 115/77 SpO2: 100% HT: 180.0 cm HT: 180 cm WT: 95.0 kg WT: 95 kg BMI: 29.32 General: alert, no acute distress Skin: warm, dry intact Head: atraumatic, normocephalic Neck: Trachea midline, no JVD, no bruit Eye: normal conjunctiva, sclera clear ENMT: oral mucosa moist Cardiovascular: regular rate and rhythm, no murmur, normal peripheral perfusion Respiratory: Lungs CTA, respirations non labored Chest wall: no deformity. Gastrointestinal: soft, non-distended, no tenderness, no guarding. Back: No tenderness, Normal ROM, Normal alignment. Extremities: no edema, no deformity, no trauma Neurological: oriented x 4, LOC appropriate for age, sensation equal & normal bilaterally, speech normal Psychiatric: cooperative, affect appropriate for age, normal judgement, normal psychiatric thoughts. Assessment/Plan For bradycardia, the patient will get an echo, GXT, and 48-hour Holter. Follow up in 4 weeks. ATTESTATION: Documentation services were performed after patient or guardian consented to allow [employer] to record this visit. ANAMARIA fire support specialist and provider reviewed before signing. ANAMARIA: Rissa Arias. Follow-up No qualifying data available Problem List/Past Medical History Ongoing Bipolar disorder, current episode depressed, mild Bipolar disorder, current episode manic without psychotic features, mild Encounter for long-term (current) use of medications Hypothyroid Morbid obesity Plantar fasciitis, left Historical Gallstones Hypothyroid Procedure/Surgical History Cholecystectomy. Medications alprazolam 0.5 mg Tab, 1-2 tabs, Oral, Bedtime, PRN, 1 refills benztropine 1 mg Tab cyclobenzaprine 10 mg Tab, 10 mg= 1 tab(s), Oral, TID, PRN, 1 refills ferrous sulfate 325 mg Tab hydrOXYzine hydrochloride 50 mg oral tablet, See Instructions, 2 refills lamotrigine 200 mg Tab, 300 mg= 1.5 tab(s), Oral, Daily, 5 refills levothyroxine 175 mcg (0.175 mg) Tab, 175 mcg= 1 tab(s), Oral, Daily lithium 450 mg oral tablet, extended release, See Instructions, 2 refills pantoprazole 40 mg Oral EC Tab, 40 mg= 1 tab(s), Oral, Daily quetiapine 50 mg oral tablet, 100 mg= 2 tab(s), Oral, Bedtime, 5 refills Sprintec oral tablet, 1 tab(s), Oral, Daily Tylenol Extra Strength PM oral tablet, 2 tab(s), Oral, Once a day (at bedtime), PRN, 2 refills, Not taking: did not help Vitamin D2 2000 intl units oral capsule ziprasidone 80 mg Cap, 80 mg= 1 cap(s), Oral, BID, 2 refills Allergies No Known Medication Allergies Social History Tobacco Never (less than 100 in lifetime) Tobacco Use:. Never [place] (more content not included)... Normal [facility] Comment on above: Result Comment: Elec tronically Signed By: Jay DAVEY, Samir Rivera\.br\Date and Time Signed: 07/27/21 10:44 EDT\.br\Electronically Co-Signed By: Rissa Arias\.br\Date and Time Co-Signed: 07/24/21 16:24 EDT Consent for Treatmenton Consent for Treatment [id number]#1.00C D:127 [facility] Referrals Officeon 2 Referrals Office [id number] CD:127 Normal [facility] BASIC METABOLIC PANEL 04-19 Anion gap [Moles/Vol] 8 mmol/L Low 9 - 17 mmol/L [place] Bun/Cre Ratio NOT REPORTED [place], [place] Calcium [Mass/Vol] 9.2 mg/dL 8.6 - 10. 4 mg/dL [place] Chloride [Moles/Vol] 105 mmol/L 98 - 10 7 mmol/L [place] CO2 [Moles/Vol] 26 mmol/L 20 - 31 mmol/L [place] Creatinine [Mass/Vol] 0.67 mg/dL 0.5 - 0.9 mg/dL [place] GFR >60 >60 mL/min [place] GFR Non- >60 >60 mL/min [place] GFR/1.73 sq M predicted among non-blacks MDRD (S/P/Bld) [Vol rate/Area] NOT REPORTED [place] GFR/1.73 sq M predicted among non-blacks MDRD (S/P/Bld) [Vol rate/Area] [place] Comment on above: Average GFR for 20-2 9 years old: 116 mL/min/1.73sq m Chronic Kidney Disease: <60 mL/min/1.73sq m Kidney failure: <15 mL/min/1.73sq m eGFR calculated using average adult body mass. Additional eGFR calculator available at: http://www.ItsMyURLs.[employer]/multiple_crcl_2012.htm Glucose [Mass/Vol] 99 mg/dL 70 - 99 mg/dL [place] Interpretation and review of laboratory results Abnormal [place] Potassium [Moles/Vol] 4.5 mmol/L 3.7 - 5.3 mmol/L [place] Sodium [Moles/Vol] 139 mmol/L 135 - 144 mmol/L [place] Urea nitrogen [Mass/Vol] 5 mg/dL Low 6 - 20 mg/dL [place] Basic Metabolic Profon 05-08 (cont.) Normal [facility] Comment on above: Result Comment: Aver age GFR for 20-29 years old: 116 mL/min/1.73sq m Chronic Kidney Disease: <60 mL/min/1.73sq m Kidney failure: <15 mL/min/1.73sq m eGFR calculated using average adult body mass. Additional eGFR calculator available at: http://www.Yammer/multiple_crcl_2012.htm Performed By: #### C BC, PT, PTT, BMP #### [employer] [facility] [address] [place] [address] [phone] Adding Machine Servicer: Casey Marques MD #### ANSAMMIET #### [facility] [address] [place] [phone] Adding Machine Servicer: Adolph Diaz MD Anion gap [Moles/Vol] 8 mmol/L Low 9-17 [facility] Comment on above: Performed By: #### C BC, PT, PTT, BMP #### [facility] [address] [place] [address] [phone] Adding Machine Servicer: Casey Marques MD #### ANSAMMIET #### [facility] [address] [place] [address] Adding Machine Servicer: Adolph Diaz MD Calcium [Mass/Vol] 9.2 mg/dL Normal 8.6-10.4 [facility] Comment on above: Performed By: #### C BC, PT, PTT, BMP #### [facility] [address] [place] [address] [phone] Adding Machine Servicer: Casey Marques MD #### ANICOT #### [facility] [address] [place] [address] Adding Machine Servicer: Adolph Diaz MD Chloride [Moles/Vol] 105 mmol/L Normal 98-107 [facility] Comment on above: Performed By: #### C BC, PT, PTT, BMP #### [facility] [address] [place] [phone] Adding Machine Servicer: Casey Marques MD #### ANICOT #### [facility] [address] [place], [place] [phone] Adding Machine Servicer: Adolph Diaz MD CO2 [Moles/Vol] 26 mmol/L Normal 20-31 [facility] Comment on above: Performed By: #### C BC, PT, PTT, BMP #### [facility] [address] [place] [phone] Adding Machine Servicer: Casey Marques MD #### ANICOT #### [facility] [address] [place], [place] [phone] Adding Machine Servicer: Adolph Diaz MD Creatinine [Mass/Vol] 0.67 mg/dL Normal 0.50-0.90 [facility] Comment on above: Performed By: #### C BC, PT, PTT, BMP #### [address] [phone] Adding Machine Servicer: Casey Marques MD #### ANICOT #### [facility] [address] [place], [place] [phone] Adding Machine Servicer: Adolph Diaz MD GFR, Amer >60 Normal >60 [facility] Comment on above: Performed By: #### C BC, PT, PTT, BMP #### [facility] [address] [place] [phone] Adding Machine Servicer: Casey Marques MD #### ANICOT #### [facility] [address] [place] [address] Adding Machine Servicer: Adolph Diaz MD GFR,non Amer >60 Normal >60 [facility] Comment on above: Performed By: #### C BC, PT, PTT, BMP #### [facility] [address] [place] [phone] Adding Machine Servicer: Casey Marques MD #### ANICOT #### [facility] [address] [place] [address] Adding Machine Servicer: Adolph Diaz MD Glucose [Mass/Vol] 99 mg/dL Normal 70-99 [facility] Comment on above: Performed By: #### C BC, PT, PTT, BMP #### [address] [phone] Adding Machine Servicer: Casey Marques MD #### ANICOT #### [facility] [address] [place] [address] Adding Machine Servicer: Adolph Diaz MD Potassium [Moles/Vol] 4.5 mmol/L Normal 3.7-5.3 [facility] Comment on above: Performed By: #### Rudi BC, PT, PTT, BMP #### [address] [phone] Adding Machine Servicer: Casey Marques MD #### ANICOT #### [facility] [address] [place] [phone] Adding Machine Servicer: Adolph Diaz MD Sodium [Moles/Vol] 139 mmol/L Normal 135-144 [facility] Comment on above: Performed By: #### C BC, PT, PTT, BMP #### [address] [phone] Adding Machine Servicer: Casey Marques MD #### ANICOT #### [facility] [address] [place] [address] Adding Machine Servicer: Adolph Diaz MD Urea nitrogen [Mass/Vol] 5 mg/dL Low 6-20 [facility] Comment on above: Performed By: #### C BC, PT, PTT, BMP #### [address] [phone] Adding Machine Servicer: Casey Marques MD #### ANICOT #### [facility] [address] [place], [place] [phone] Adding Machine Servicer: Adolph Diaz MD BUN/CRE Ratio NOT REPORTED Normal 01-05 [facility] Comment on above: Performed By: #### C BC, PT, PTT, BMP #### [facility] [place], [place] [phone] Adding Machine Servicer: Casey Marques MD #### ANICOT #### [facility] [address] [place], [place] [phone] Adding Machine Servicer: Adolph Diaz MD Staging: NOT REPORTED Normal [facility] Comment on above: Performed By: #### C BC, PT, PTT, BMP #### [facility] [address] [place] [address] [phone] Adding Machine Servicer: Casey Marques MD #### ANICOT #### [facility] [address] [place] [address] Adding Machine Servicer: Adolph Diaz MD CBC WITH AUTO DIFFERENTIALon 05-08-2020 Basophils (Bld) [#/Vol] 0.06 10*3/uL [place] Basophils/100 WBC (Bld) 1 % 0 - 2 % [place] Differential Type NOT REPORTED [place] Eosinophils (Bld) [#/Vol] 0.35 10*3/uL [place] Eosinophils/100 WBC (Bld) 3 % 1 - 4 % [place] Erythrocyte distribution width (RBC) [Ratio] 14.7 % High 11.8 - 14.4 % [place] Hematocrit (Bld) [Volume fraction] 38.4 % 36.3 - 47.1 % [place] Hemoglobin (Bld) [Mass/Vol] 12.0 g/dL 11.9 - 15.1 g/dL [place] Immature granulocytes (Bld) [#/Vol] 1 % High 0 [place] Immature granulocytes (Bld) [#/Vol] 0.06 10*3/uL [place] Interpretation and review of laboratory results Abnormal [place] Lymphocytes (Bld) [#/Vol] 2.21 10*3/uL [place] Lymphocytes/100 WBC (Bld) 21 % Low 24 - 43 % [place] MCH (RBC) [Entitic mass] 26.5 pg 25.2 - 33.5 pg [place] MCHC (RBC) [Mass/Vol] 31.3 g/dL 28.4 - 34.8 g/dL [place] MCV (RBC) [Entitic vol] 85.0 fL 82.6 - 102.9 fL [place] Monocytes (Bld) [#/Vol] 0.71 10*3/uL [place] Monocytes/100 WBC (Bld) 7 % 3 - 12 % [place] Platelet mean volume (Bld) [Entitic vol] 8.6 fL 8.1 - 13.5 fL [place] Platelets (Bld) [#/Vol] 256 10*3/uL [place] Platelets (Bld) [#/Vol] NOT REPORTED [place] RBC (Bld) [#/Vol] 4.52 10*6/uL 3.95 - 5.1 1 m/uL [place] RBC morphology finding Nom (Bld) ANISOCYTOSIS PRESENT [place] Segmented neutrophils/100 WBC (Bld) 67 % High 36 - 65 % [place] Segs Absolute 7.30 [place] WBC (Bld) [#/Vol] 10.7 10*3/uL [place] WBC (Bld) [#/Vol] 0.0 10*3/uL 0.0 per 10 0 WBC [place] WBC Morphology NOT REPORTED [place] CBC with Diffon 05-08-2020 Abs. Basophil 0.06 k/uL Normal 0.00-0.20 [facility] Comment on above: Performed By: #### C BC, PT, PTT, BMP #### [address] [phone] Adding Machine Servicer: Casey Marques MD #### ANICOT #### [facility] [address] [place] [address] Adding Machine Servicer: Adolph Diaz MD Abs.Imm.Granulocyte 0.06 k/uL Normal 0.00-0.30 [facility] Comment on above: Performed By: #### C BC, PT, PTT, BMP #### [address] [phone] Adding Machine Servicer: Casey Marques MD #### ANICOT #### [address] [phone] Adding Machine Servicer: Adolph Diaz MD Abs.Neutrophil (Seg) 7.30 k/uL Normal 1.50-8.10 [facility] Comment on above: Performed By: #### C BC, PT, PTT, BMP #### [place] [address] Adding Machine Servicer: Casey Marques MD #### ANICOT #### [facility] [address] [place] [id number] Adding Machine Servicer: Adolph Diaz MD Basophils/100 WBC (Bld) 1 % Normal 0-2 [facility] Comment on above: Performed By: #### C BC, PT, PTT, BMP #### [address] [phone] Adding Machine Servicer: Casey Marques MD #### ANICOT #### [facility] [address] [place], [place] [id number] Adding Machine Servicer: Adolph Diaz MD Eosinophils (Bld) [#/Vol] 0.35 10*3/uL Normal 0.00-0.44 [facility] Comment on above: Performed By: #### C BC, PT, PTT, BMP #### [id number] [place], [place] [id number] Adding Machine Servicer: Casey Marques MD #### ANICOT #### [facility] [address] [place], [place] [id number] Adding Machine Servicer: Adolph Diaz MD Eosinophils/100 WBC (Bld) 3 % Normal 1-4 [facility] Comment on above: Performed By: #### C BC, PT, PTT, BMP #### [address] [phone] Adding Machine Servicer: Casey Marques MD #### ANICOT #### [facility] [address] [place], [place] [id number] Adding Machine Servicer: Adolph Diaz MD Erythrocyte distribution width (RBC) [Ratio] 14.7 % High 11.8-14.4 [facility] Comment on above: Performed By: #### C BC, PT, PTT, BMP #### [address] [phone] Adding Machine Servicer: Casey Marques MD #### ANICOT #### [facility] [address] [place], [place] [phone] Adding Machine Servicer: Adolph Diaz MD Hematocrit (Bld) [Volume fraction] 38.4 % Normal 36.3-47.1 [facility] Comment on above: Performed By: #### C BC, PT, PTT, BMP #### [address] [phone] Adding Machine Servicer: Casey Marques MD #### ANICOT #### [facility] [address] [place], [place] [phone] Adding Machine Servicer: Adolph Diaz MD Hemoglobin (Bld) [Mass/Vol] 12.0 g/dL Normal 11.9-15.1 [facility] Comment on above: Performed By: #### C BC, PT, PTT, BMP #### [address] [id number] Adding Machine Servicer: Casey Marques MD #### ANICOT #### [facility] [address] [place] [address] Adding Machine Servicer: Adolph Diaz MD Immature granulocytes/100 WBC (Bld) 1 % High 0 [facility] Comment on above: Performed By: #### C BC, PT, PTT, BMP #### [address] [id number] Adding Machine Servicer: Casey Marques MD #### ANICOT #### [facility] [address] [place] [phone] Adding Machine Servicer: Adolph Diaz MD Lymphocytes (Bld) [#/Vol] 2.21 10*3/uL Normal 1.10-3.70 [facility] Comment on above: Performed By: #### C BC, PT, PTT, BMP #### [address] [address] Adding Machine Servicer: Casey Marques MD #### ANICOT #### [facility] [address] [place] [address] Adding Machine Servicer: Adolph Diaz MD Lymphocytes/100 WBC (Bld) 21 % Low 24-43 [facility] Comment on above: Performed By: #### C BC, PT, PTT, BMP #### [address] [address] Adding Machine Servicer: Casey Marques MD #### ANICOT #### [facility] [address] [place] [address] Adding Machine Servicer: Adolph Diaz MD MCH (RBC) [Entitic mass] 26.5 pg Normal 25.2-33.5 [facility] Comment on above: Performed By: #### C BC, PT, PTT, BMP #### [address] [phone] Adding Machine Servicer: Casey Marques MD #### ANICOT #### [facility] [address] [place] [address] Adding Machine Servicer: Adolph Diaz MD MCHC (RBC) [Mass/Vol] 31.3 g/dL Normal 28.4-34.8 [facility] Comment on above: Performed By: #### C BC, PT, PTT, BMP #### [address] [id number] Adding Machine Servicer: Casey Marques MD #### ANICOT #### [address] [phone] Adding Machine Servicer: Adolph Diaz MD MCV (RBC) [Entitic vol] 85.0 fL Normal 82.6-102.9 [facility] Comment on above: Performed By: #### C BC, PT, PTT, BMP #### [address] [phone] Adding Machine Servicer: Casey Marques MD #### ANICOT #### [facility] [address] [place] [phone] Adding Machine Servicer: Adolph Diaz MD Monocytes (Bld) [#/Vol] 0.71 10*3/uL Normal 0.10-1.20 [facility] Comment on above: Performed By: #### C BC, PT, PTT, BMP #### [address] [phone] Adding Machine Servicer: Casey Marques MD #### ANICOT #### [facility] [address] [place], [place] [phone] Adding Machine Servicer: Adolph Diaz MD Monocytes/100 WBC (Bld) 7 % Normal 3-12 [facility] Comment on above: Performed By: #### C BC, PT, PTT, BMP #### [address] [phone] Adding Machine Servicer: Casey Marques MD #### ANICOT #### [facility] [address] [place] [address] Adding Machine Servicer: Adolph Diaz MD Neutrophil (Seg) 67 % High 36-65 [facility] Comment on above: Performed By: #### C BC, PT, PTT, BMP #### [address] [address] Adding Machine Servicer: Casey Marques MD #### ANICOT #### [facility] [address] [place] [address] Adding Machine Servicer: Adolph Diaz MD NRBC Automated 0.0 per 100 WBC Normal 0.0 [facility] Comment on above: Performed By: #### C BC, PT, PTT, BMP #### [address] [address] Adding Machine Servicer: Casey Marques MD #### ANICOT #### [facility] [address] [place] [address] Adding Machine Servicer: Adolph Diaz MD Platelet mean volume (Bld) [Entitic vol] 8.6 fL Normal 8.1-13.5 [facility] Comment on above: Performed By: #### C BC, PT, PTT, BMP #### [address] [phone] Adding Machine Servicer: Casey Marques MD #### ANICOT #### [facility] [address] [place] [address] Adding Machine Servicer: Adolph Diaz MD Platelets (Bld) [#/Vol] 256 10*3/uL Normal 138-453 [facility] Comment on above: Performed By: #### C BC, PT, PTT, BMP #### [address] [address] Adding Machine Servicer: Casey Marques MD #### ANICOT #### [facility] [address] [place] [address] Adding Machine Servicer: Adolph Diaz MD RBC (Bld) [#/Vol] 4.52 10*6/uL Normal 3.95-5.11 [facility] Comment on above: Performed By: #### C BC, PT, PTT, BMP #### [address] [phone] Adding Machine Servicer: Casey Marques MD #### ANICOT #### [facility] [address] [place] [phone] Adding Machine Servicer: Adolph Diaz MD RBC morphology finding Nom (Bld) ANISOCYTOSIS PRESENT Normal [facility] Comment on above: Performed By: #### C BC, PT, PTT, BMP #### [address] [address] Adding Machine Servicer: Casey Marques MD #### ANICOT #### [facility] [address] [place] [address] Adding Machine Servicer: Adolph Diaz MD WBC (Bld) [#/Vol] 10.7 10*3/uL Normal 3.5-11.3 [facility] Comment on above: Performed By: #### C BC, PT, PTT, BMP #### [address] [address] Adding Machine Servicer: Casey Marques MD #### ANICOT #### [facility] [address] [place] [address] Adding Machine Servicer: Adolph Diaz MD Auto Diff Performed NOT REPORTED Normal [facility] Comment on above: Performed By: #### C BC, PT, PTT, BMP #### [facility] [address] [place] [address] Adding Machine Servicer: Casey Marques MD #### ANICOT #### [facility] [address] [place] [address] Adding Machine Servicer: Adolph Diaz MD Platelet Estimate NOT REPORTED Normal [facility] Comment on above: Performed By: #### C BC, PT, PTT, BMP #### [facility] [address] [place] [address] Adding Machine Servicer: Casey Marques MD #### ANICOT #### [facility] [address] [place] [address] Adding Machine Servicer: Adolph Diaz MD WBC Morphology NOT REPORTED Normal [facility] Comment on above: Performed By: #### C BC, PT, PTT, BMP #### [facility] [address] [place] [address] Adding Machine Servicer: Casey Marques MD #### ANICOT #### [facility] [address] [place] [address] Adding Machine Servicer: Adolph Diaz MD Surgical Pathologyon 021 Surgical Pathology Report -- Diagnosis -- STOMACH, SLEEVE GASTRECTOMY: - MODERATE CHRONIC INACTIVE GASTRITIS. - NEGATIVE FOR ACTIVE GASTRITIS, INTESTINAL METAPLASIA OR DYSPLASIA. Aaron Saunders M.D. Electronically Signed Out 05/08/2020 Clinical Information Pre-op Diagnosis: MORBID OBESITY, HYPOTHYROID Operative Findings: GASTRIC REMNANT Operation Performed: GASTRECTOMY SLEEVE LAPAROSCOPIC ROBOTIC, EGD Source of Specimen 1: GASTRIC REMNANT Gross Description JAZ SANDERS, GASTRIC REMNANT 21.0 x 5.5 x 4.0 cm portion of stomach with a staple line that runs along its length. The serosa is pink-banuelos and the mucosa is pink-red with no areas of granularity or masses. Maintenance Plumber sections 1cs. tm Microscopic Description Sections of gastric mucosa show increased lymphocytes and plasma cells in the lamina propria. There is no evidence of acute inflammation, intestinal metaplasia or dysplasia. There is no evidence of organisms suspicious for Helicobacter with the routine H&E stains. SURGICAL PATHOLOGY CONSULTATION Patient Name: JAZ SANDERS [facility] Rec: [id number] Path Number: [id number] [facility] ANATOMIC PATHOLOGY [address] [place] [address]. [place], [place] [address] [place], [place] Basic Metabolic Panelon 04-19 Anion gap [Moles/Vol] 13 mmol/L 9 - 17 mmol/L [place] Bun/Cre Ratio NOT REPORTED [place] Calcium [Mass/Vol] 9.4 mg/dL 8.6 - 10. 4 mg/dL [place] Chloride [Moles/Vol] 104 mmol/L 98 - 10 7 mmol/L [place] CO2 [Moles/Vol] 23 mmol/L 20 - 31 mmol/L [place] Creatinine [Mass/Vol] 0.73 mg/dL 0.5 - 0.9 mg/dL [place] GFR >60 >60 mL/min [place] GFR Non- >60 >60 mL/min [place] GFR/1.73 sq M predicted among non-blacks MDRD (S/P/Bld) [Vol rate/Area] NOT REPORTED [place] GFR/1.73 sq M predicted among non-blacks MDRD (S/P/Bld) [Vol rate/Area] [place] Comment on above: Average GFR for 20-2 9 years old: 116 mL/min/1.73sq m Chronic Kidney Disease: <60 mL/min/1.73sq m Kidney failure: <15 mL/min/1.73sq m eGFR calculated using average adult body mass. Additional eGFR calculator available at: http://www.ItsMyURLs.Glo[employer] Technology/multiple_crcl_2012.htm Glucose [Mass/Vol] 98 mg/dL 70 - 99 mg/dL [place] Potassium [Moles/Vol] 4.1 mmol/L 3.7 - 5.3 mmol/L [place] Sodium [Moles/Vol] 140 mmol/L 135 - 144 mmol/L [place] Urea nitrogen [Mass/Vol] 6 mg/dL 6 - 20 mg/dL [place] Basic Metabolic Profon 05-07 (cont.) Normal [facility] Comment on above: Result Comment: Aver age GFR for 20-29 years old: 116 mL/min/1.73sq m Chronic Kidney Disease: <60 mL/min/1.73sq m Kidney failure: <15 mL/min/1.73sq m eGFR calculated using average adult body mass. Additional eGFR calculator available at: http://www.Yammer/multiple_crcl_2011.htm Performed By: #### C BC, BMP #### [facility] [address] [place] [address] [phone] Adding Machine Servicer: Casey Marques MD Anion gap [Moles/Vol] 13 mmol/L Normal 9-17 [facility] Comment on above: Performed By: #### C BC, BMP #### [facility] [address] [place] [address] Adding Machine Servicer: Casey Marques MD Calcium [Mass/Vol] 9.4 mg/dL Normal 8.6-10.4 [facility] Comment on above: Performed By: #### C BC, BMP #### [facility] [address] [place] [address] [phone] Adding Machine Servicer: Casey Marques MD Chloride [Moles/Vol] 104 mmol/L Normal 98-107 [facility] Comment on above: Performed By: #### C BC, BMP #### [facility] [address] [place] [address] Adding Machine Servicer: Casey Marques MD CO2 [Moles/Vol] 23 mmol/L Normal 20-31 [facility] Comment on above: Performed By: #### C BC, BMP #### [facility] [address] [place] [address] Adding Machine Servicer: Casey Marques MD Creatinine [Mass/Vol] 0.73 mg/dL Normal 0.50-0.90 [facility] Comment on above: Performed By: #### C BC, BMP #### [facility] [address] [place] [address] Adding Machine Servicer: Casey Marques MD GFR, Amer >60 Normal >60 [facility] Comment on above: Performed By: #### C BC, BMP #### [facility] [address] [place] [address] Adding Machine Servicer: Casey Marques MD GFR,non Amer >60 Normal >60 [facility] Comment on above: Performed By: #### C BC, BMP #### [facility] [address] [place] [address] Adding Machine Servicer: Casey Marques MD Glucose [Mass/Vol] 98 mg/dL Normal 70-99 [facility] Comment on above: Performed By: #### C BC, BMP #### [address] [address] Adding Machine Servicer: Casey Marques MD Potassium [Moles/Vol] 4.1 mmol/L Normal 3.7-5.3 [facility] Comment on above: Performed By: #### C BC, BMP #### [facility] [address] [place] [address] Adding Machine Servicer: Casey Marques MD Sodium [Moles/Vol] 140 mmol/L Normal 135-144 [facility] Comment on above: Performed By: #### C BC, BMP #### [facility] [address] [place] [address] Adding Machine Servicer: Casey Marques MD Urea nitrogen [Mass/Vol] 6 mg/dL Normal 6-20 [facility] Comment on above: Performed By: #### C BC, BMP #### [facility] [address] [place] [address] Adding Machine Servicer: Casey Marques MD BUN/CRE Ratio NOT REPORTED Normal 01-05 [facility] Comment on above: Performed By: #### C BC, BMP #### [facility] [address] [place] [phone] Adding Machine Servicer: Casey Marques MD Staging: NOT REPORTED Normal [facility] Comment on above: Performed By: #### C BC, BMP #### [facility] [address] [place] [address] Adding Machine Servicer: Casey Marques MD CBCon 05-07-2020 Erythrocyte distribution width (RBC) [Ratio] 14.4 % Normal 11.8-14.4 [facility] Comment on above: Performed By: #### C BC, BMP #### [facility] [address] [place] [phone] Adding Machine Servicer: Casey Marques MD Hematocrit (Bld) [Volume fraction] 40.4 % Normal 36.3-47.1 [facility] Comment on above: Performed By: #### C BC, BMP #### [facility] [address] [place] [address] Adding Machine Servicer: Casey Marques MD Hemoglobin (Bld) [Mass/Vol] 12.6 g/dL Normal 11.9-15.1 [facility] Comment on above: Performed By: #### C BC, BMP #### [facility] [address] [place] [phone] Adding Machine Servicer: Casey Marques MD MCH (RBC) [Entitic mass] 26.1 pg Normal 25.2-33.5 [facility] Comment on above: Performed By: #### C BC, BMP #### [facility] [address] [place] [phone] Adding Machine Servicer: Casey Marques MD MCHC (RBC) [Mass/Vol] 31.2 g/dL Normal 28.4-34.8 [facility] Comment on above: Performed By: #### C BC, BMP #### [address] [address] Adding Machine Servicer: Casey Marques MD MCV (RBC) [Entitic vol] 83.8 fL Normal 82.6-102.9 [facility] Comment on above: Performed By: #### C BC, BMP #### [address] [address] Adding Machine Servicer: Casey Marques MD NRBC Automated 0.0 per 100 WBC Normal 0.0 [facility] Comment on above: Performed By: #### C BC, BMP #### [address] [address] Adding Machine Servicer: Casey Marques MD Platelet mean volume (Bld) [Entitic vol] 8.7 fL Normal 8.1-13.5 [facility] Comment on above: Performed By: #### C BC, BMP #### [address] [address] Adding Machine Servicer: Casey Marques MD Platelets (Bld) [#/Vol] 289 10*3/uL Normal 138-453 [facility] Comment on above: Performed By: #### C BC, BMP #### [address] [address] Adding Machine Servicer: Casey Marques MD RBC (Bld) [#/Vol] 4.82 10*6/uL Normal 3.95-5.11 [facility] Comment on above: Performed By: #### C BC, BMP #### [address] [address] Adding Machine Servicer: Casey Marques MD WBC (Bld) [#/Vol] 13.7 10*3/uL High 3.5-11.3 [facility] Comment on above: Performed By: #### C BC, TERRANCE #### [facility] [address] [place] [address] Adding Machine Servicer: Casey Marques MD Erythrocyte distribution width (RBC) [Ratio] 14.4 % 11.8 - 14.4 % [place] Hematocrit (Bld) [Volume fraction] 40.4 % 36.3 - 47.1 % [place] Hemoglobin (Bld) [Mass/Vol] 12.6 g/dL 11.9 - 15.1 g/dL [place] Interpretation and review of laboratory results Abnormal [place] MCH (RBC) [Entitic mass] 26.1 pg 25.2 - 33.5 pg [place] MCHC (RBC) [Mass/Vol] 31.2 g/dL 28.4 - 34.8 g/dL [place] MCV (RBC) [Entitic vol] 83.8 fL 82.6 - 102.9 fL [place] Platelet mean volume (Bld) [Entitic vol] 8.7 fL 8.1 - 13.5 fL [place] Platelets (Bld) [#/Vol] 289 10*3/uL [place] RBC (Bld) [#/Vol] 4.82 10*6/uL 3.95 - 5.1 1 m/uL [place] WBC (Bld) [#/Vol] 0.0 10*3/uL 0.0 per 10 0 WBC [place] WBC (Bld) [#/Vol] 13.7 10*3/uL High [place] ESOPHAGRAMon 05-07-2020 [place] ESOPHAGRAM EXAMINATION: SINGLE CONTRAST ESOPHAGRAM 05/07/2020 HISTORY: ORDERING SYSTEM PROVIDED HISTORY: sleeve TECHNOLOGIST PROVIDED HISTORY: sleeve Reason for Exam: Sleeve yesterday/ R/O leak/ 30 ml Omnipaque orally Acuity: Unknown Type of Exam: Unknown COMPARISON: None. TECHNIQUE: Multiple single contrast images of the esophagus and gastroesophageal junction were obtained following the oral administration of water soluble contrast FLUOROSCOPY DOSE AND TYPE OR TIME AND EXPOSURES: 0.8 minute. Air kerma 276.82 mGy FINDINGS: Postsurgical changes from gastric sleeve. No obstruction. No extravasation of contrast. IMPRESSION: No extravasation of contrast. Interpreted by: Petr Cullen MD Signed by: Petr Cullen MD 05/07/20 Final result Normal [facility] EXAMINATION: SINGLE CONTRAST ESOPHAGRAM 05/07/2020 HISTORY: ORDERING SYSTEM PROVIDED HISTORY: sleeve TECHNOLOGIST PROVIDED HISTORY: sleeve Reason for Exam: Sleeve yesterday/ R/O leak/ 30 ml Omnipaque orally Acuity: Unknown Type of Exam: Unknown COMPARISON: None. TECHNIQUE: Multiple single contrast images of the esophagus and gastroesophageal junction were obtained following the oral administration of water soluble contrast FLUOROSCOPY DOSE AND TYPE OR TIME AND EXPOSURES: 0.8 minute. Air kerma 276.82 mGy FINDINGS: Postsurgical changes from gastric sleeve. No obstruction. No extravasation of contrast. [place] Julius, [facility] Incoming Radiant Results From [employer] - 05/07/2020 10:04 AM EST EXAMINATION: SINGLE CONTRAST ESOPHAGRAM 05/07/2020 HISTORY: ORDERING SYSTEM PROVIDED HISTORY: sleeve TECHNOLOGIST PROVIDED HISTORY: sleeve Reason for Exam: Sleeve yesterday/ R/O leak/ 30 ml Omnipaque orally Acuity: Unknown Type of Exam: Unknown COMPARISON: None. TECHNIQUE: Multiple single contrast images of the esophagus and gastroesophageal junction were obtained following the oral administration of water soluble contrast FLUOROSCOPY DOSE AND TYPE OR TIME AND EXPOSURES: 0.8 minute. Air kerma 276.82 mGy FINDINGS: Postsurgical changes from gastric sleeve. No obstruction. No extravasation of contrast. IMPRESSION: No extravasation of contrast. [place] No extravasation of contrast. [place] POCT urine pregnancyon 05-07 Beta HCG ( test) Ql (U) Negative NEGATIVE [place] Comment on above: Specimens with hCG l evels near the threshold of the test (25 mIU/mL) may give a negative or indeterminate result. In such cases, another test should be performed with a new specimen in 48-72 hours. If early is suspected clinically in this setting, correlation with quantitative serum b-hCG level is suggested. Basic Metabolic Panelon 04-18 Anion gap [Moles/Vol] 10 mmol/L 9 - 17 mmol/L [place] Bun/Cre Ratio NOT REPORTED [place] Calcium [Mass/Vol] 9.5 mg/dL 8.6 - 10. 4 mg/dL [place] Chloride [Moles/Vol] 103 mmol/L 98 - 10 7 mmol/L [place] CO2 [Moles/Vol] 19 mmol/L Low 20 - 31 mmol/L [place] Creatinine [Mass/Vol] 0.9 mg/dL 0.5 - 0.9 mg/dL [place] GFR >60 >60 mL/min [place] GFR Non- >60 >60 mL/min [place] GFR/1.73 sq M predicted among non-blacks MDRD (S/P/Bld) [Vol rate/Area] NOT REPORTED [place] GFR/1.73 sq M predicted among non-blacks MDRD (S/P/Bld) [Vol rate/Area] [place] Comment on above: Average GFR for 20-2 9 years old: 116 mL/min/1.73sq m Chronic Kidney Disease: <60 mL/min/1.73sq m Kidney failure: <15 mL/min/1.73sq m eGFR calculated using average adult body mass. Additional eGFR calculator available at: http://www.ItsMyURLs.GloPos Technology/multiple_crcl_2011.htm Glucose [Mass/Vol] 162 mg/dL High 70 - 99 mg/dL [place] Interpretation and review of laboratory results Abnormal [place] Potassium [Moles/Vol] 3.9 mmol/L 3.7 - 5.3 mmol/L [place] Sodium [Moles/Vol] 132 mmol/L Low 135 - 144 mmol/L [place] Urea nitrogen [Mass/Vol] 10 mg/dL 6 - 20 mg/dL [place] Basic Metabolic Profon 05-06 (cont.) Normal [facility] Comment on above: Result Comment: Aver age GFR for 20-29 years old: 116 mL/min/1.73sq m Chronic Kidney Disease: <60 mL/min/1.73sq m Kidney failure: <15 mL/min/1.73sq m eGFR calculated using average adult body mass. Additional eGFR calculator available at: http://www.Yammer/multiple_crcl_2011.htm Performed By: #### C BC, BMP #### [facility] [address] [place] [address] Adding Machine Servicer: Casey Marques MD Anion gap [Moles/Vol] 10 mmol/L Normal 9-17 [facility] Comment on above: Performed By: #### C BC, BMP #### [facility] [address] [place] [address] Adding Machine Servicer: Casey Marques MD Calcium [Mass/Vol] 9.5 mg/dL Normal 8.6-10.4 [facility] Comment on above: Performed By: #### C BC, BMP #### [facility] [address] [place] [address] Adding Machine Servicer: Casey Marques MD Chloride [Moles/Vol] 103 mmol/L Normal 98-107 [facility] Comment on above: Performed By: #### C BC, BMP #### [facility] [address] [place] [address] Adding Machine Servicer: Casey Marques MD CO2 [Moles/Vol] 19 mmol/L Low 20-31 [facility] Comment on above: Performed By: #### C BC, BMP #### [facility] [address] [place] [address] Adding Machine Servicer: Casey Marques MD Creatinine [Mass/Vol] 0.90 mg/dL Normal 0.50-0.90 [facility] Comment on above: Performed By: #### C BC, BMP #### [facility] [address] [place] [address] Adding Machine Servicer: Casey Marques MD GFR, Amer >60 Normal >60 [facility] Comment on above: Performed By: #### C BC, BMP #### [address] [address] Adding Machine Servicer: Casey Marques MD GFR,non Amer >60 Normal >60 [facility] Comment on above: Performed By: #### C BC, BMP #### [address] [address] Adding Machine Servicer: Casey Marques MD Glucose [Mass/Vol] 162 mg/dL High 70-99 [facility] Comment on above: Performed By: #### C BC, BMP #### [address] [address] Adding Machine Servicer: Csaey Marques MD Potassium [Moles/Vol] 3.9 mmol/L Normal 3.7-5.3 [facility] Comment on above: Performed By: #### C BC, BMP #### [address] [address] Adding Machine Servicer: Casey Marques MD Sodium [Moles/Vol] 132 mmol/L Low 135-144 [facility] Comment on above: Performed By: #### C BC, BMP #### [address] [address] Adding Machine Servicer: Casey Marques MD Urea nitrogen [Mass/Vol] 10 mg/dL Normal 6-20 [facility] Comment on above: Performed By: #### C BC, BMP #### [facility] [address] [place] [address] Adding Machine Servicer: Casey Marques MD BUN/CRE Ratio NOT REPORTED Normal 9-20 [facility] Comment on above: Performed By: #### C BC, BMP #### [address] [address] Adding Machine Servicer: Casey Marques MD Staging: NOT REPORTED Normal [facility] Comment on above: Performed By: #### C BC, BMP #### [address] [address] Adding Machine Servicer: Casey Marques MD CBCon 05-06-2020 Erythrocyte distribution width (RBC) [Ratio] 14.6 % High 11.8-14.4 [facility] Comment on above: Performed By: #### C BC, BMP #### [facility] [address] [place] [address] Adding Machine Servicer: Casey Marques MD Hematocrit (Bld) [Volume fraction] 42.5 % Normal 36.3-47.1 [facility] Comment on above: Performed By: #### C BC, BMP #### [address] [address] Adding Machine Servicer: Casey Marques MD Hemoglobin (Bld) [Mass/Vol] 12.8 g/dL Normal 11.9-15.1 [facility] Comment on above: Performed By: #### C BC, BMP #### [address] [address] Adding Machine Servicer: Casey Marques MD MCH (RBC) [Entitic mass] 26.9 pg Normal 25.2-33.5 [facility] Comment on above: Performed By: #### C BC, BMP #### [facility] [address] [place] [address] Adding Machine Servicer: Casey Marques MD MCHC (RBC) [Mass/Vol] 30.1 g/dL Normal 28.4-34.8 [facility] Comment on above: Performed By: #### C BC, BMP #### [facility] [address] [place] [address] Adding Machine Servicer: Casey Marques MD MCV (RBC) [Entitic vol] 89.3 fL Normal 82.6-102.9 [facility] Comment on above: Performed By: #### C BC, BMP #### [address] [address] Adding Machine Servicer: Casey Marques MD NRBC Automated 0.0 per 100 WBC Normal 0.0 [facility] Comment on above: Performed By: #### C BC, BMP #### [address] [address] Adding Machine Servicer: Casey Marques MD Platelet mean volume (Bld) [Entitic vol] 8.4 fL Normal 8.1-13.5 [facility] Comment on above: Performed By: #### C BC, BMP #### [address] [address] Adding Machine Servicer: Casey Marques MD Platelets (Bld) [#/Vol] 300 10*3/uL Normal 138-453 [facility] Comment on above: Performed By: #### C BC, BMP #### [address] [address] Adding Machine Servicer: Casey Marques MD RBC (Bld) [#/Vol] 4.76 10*6/uL Normal 3.95-5.11 [facility] Comment on above: Performed By: #### C BC, BMP #### [address] [address] Adding Machine Servicer: Casey Marques MD WBC (Bld) [#/Vol] 14.3 10*3/uL High 3.5-11.3 [facility] Comment on above: Performed By: #### C BC, BMP #### [address] [address] Adding Machine Servicer: Casey Marques MD CBC without Diffon Erythrocyte distribution width (RBC) [Ratio] 14.6 % High 11.8 - 14.4 % [place] Hematocrit (Bld) [Volume fraction] 42.5 % 36.3 - 47.1 % [place] Hemoglobin (Bld) [Mass/Vol] 12.8 g/dL 11.9 - 15.1 g/dL [place] Interpretation and review of laboratory results Abnormal [place] MCH (RBC) [Entitic mass] 26.9 pg 25.2 - 33.5 pg [place] MCHC (RBC) [Mass/Vol] 30.1 g/dL 28.4 - 34.8 g/dL [place] MCV (RBC) [Entitic vol] 89.3 fL 82.6 - 102.9 fL [place] Platelet mean volume (Bld) [Entitic vol] 8.4 fL 8.1 - 13.5 fL [place] Platelets (Bld) [#/Vol] 300 10*3/uL [place] RBC (Bld) [#/Vol] 4.76 10*6/uL 3.95 - 5.1 1 m/uL [place] WBC (Bld) [#/Vol] 14.3 10*3/uL High [place] WBC (Bld) [#/Vol] 0.0 10*3/uL 0.0 per 10 0 WBC [place] Surgical Pathologyon 021 Surgical Pathology (NOTE) -- Diagnosis -- STOMACH, SLEEVE GASTRECTOMY: - MODERATE CHRONIC INACTIVE GASTRITIS. - NEGATIVE FOR ACTIVE GASTRITIS, INTESTINAL METAPLASIA OR DYSPLASIA. Aaron Saunders M.D. Electronically Signed Out 05/08/2020 Clinical Information Pre-op Diagnosis: MORBID OBESITY, HYPOTHYROID Operative Findings: GASTRIC REMNANT Operation Performed: GASTRECTOMY SLEEVE LAPAROSCOPIC ROBOTIC, EGD Source of Specimen 1: GASTRIC REMNANT Gross Description JAZ SANDERS, GASTRIC REMNANT 21.0 x 5.5 x 4.0 cm portion of stomach with a staple line that runs along its length. The serosa is pink-banuelos and the mucosa is pink-red with no areas of granularity or masses. Maintenance Plumber sections 1cs. tm Microscopic Description Sections of gastric mucosa show increased lymphocytes and plasma cells in the lamina propria. There is no evidence of acute inflammation, intestinal metaplasia or dysplasia. There is no evidence of organisms suspicious for Helicobacter with the routine BRI stains. SURGICAL PATHOLOGY CONSULTATION Patient Name: JAZ SANDERS [facility] Rec: [id number] Path Number: [id number] [facility] ANATOMIC PATHOLOGY [address] [place] [id number] [facility] Comment on above: Performed By: #### C BC, PT, PTT, BMP #### [address] [address] Adding Machine Servicer: Casey Marques MD #### ANICOT #### [facility] [address] [place] [address] Adding Machine Servicer: Adolph Diaz MD [id number] 05-04-2020 SARS-CoV-2 [facility] Comment on above: Performed By: #### C OVID #### [address] [address] Adding Machine Servicer: Casey Marques MD SARS-CoV-2 Not Detected [facility] Comment on above: Result Comment: The specimen is NEGATIVE for SARS-CoV-2, the novel coronavirus associated with COVID-19. A negative result does not rule out COVID-19. Bernard SARS-CoV-2 for use on the Bernard [employer] is a real-time RT-PCR test intended for the qualitative detection of nucleic acids from SARS-CoV-2 in clinician-collected nasal, nasopharyngeal, and oropharyngeal swab specimens from individuals who meet COVID-19 clinical and/or epidemiological criteria. Bernard SARS-CoV-2 is for use only under Emergency Use Authorization (EUA) in laboratories certified under Clinical Laboratory Improvement Amendments of 1988 (CLIA), 42 U.S.C. ?263a, that meet requirements to perform high or moderate complexity tests. An individual without symptoms of COVID-19 and who is not shedding SARS-CoV-2 virus would expect to have a negative (not detected) result in this assay. Fact sheet for Healthcare Providers: https://www.fda.gov/media/488673/download Fact sheet for Patients: https://www.fda.gov/media/653876/download METHODOLOGY: RT-PCR Performed By: #### C OVID #### [address] [address] Adding Machine Servicer: Casey Marques MD SARS-CoV-2,Rapid [facility] Comment on above: Performed By: #### C OVID #### [address] [address] Adding Machine Servicer: Casey Marques MD [id number] 05-03-2020 SARS-CoV-2 Source .NASOPHARYNGEAL SWAB [facility] Comment on above: Performed By: #### C OVID #### [address] [address] Adding Machine Servicer: Casey Marques MD Nicotineon 04-26-2020 [id number] <2 [facility] Comment on above: Performed By: #### C BC, PT, PTT, BMP #### [address] [address] Adding Machine Servicer: Casey Marques MD #### ANICOT #### [facility] [address] [place], [place] [id number] Adding Machine Servicer: Adolph Diaz MD Cotinine <2 [facility] Comment on above: Performed By: #### C BC, PT, PTT, BMP #### [address] [address] Adding Machine Servicer: Casey Marques MD #### ANICOT #### [facility] [address] [place], [place] [id number] Adding Machine Servicer: Adolph Diaz MD Nicotine <2 Normal [facility] Comment on above: Result Comment: (NOT E) Consistent with abstinence from nicotine-containing products for at least 1 week. INTERPRETIVE INFORMATION: Nicotine and Metabolites, Serum or Plasma, Quantitative Methodology: Quantitative Liquid Chromatography-Tandem Mass Spectrometry Positive cutoff: 2 ng/mL For medical purposes only; not valid for forensic use. This test is designed to evaluate recent use of nicotine-containing products. Passive and active exposure cannot be discriminated definitively, although a cutoff of 10 ng/mL cotinine is frequently used for surgery qualification purposes. For smoking cessation programs or compliance testing, the absence of expected drug(s) and/or drug metabolite(s) may indicate non-compliance, inappropriate timing of specimen collection relative to drug administration, poor drug absorption, or limitations of testing. This test cannot distinguish between use of tobacco and purified nicotine products. The concentration value must be greater than or equal to the cutoff to be reported as positive. Test developed and characteristics determined by [employer]. See Compliance Statement B: [employer]/CS Performed By: [employer] [facility] [address] [place] [address] Specialized Language Instructor: Lynn Layne MD Performed By: #### C BC, PT, PTT, BMP #### [facility] [place] [address] Adding Machine Servicer: Casey Marques MD #### ANICOT #### [facility] [address] [place] [address] Adding Machine Servicer: Adolph Diaz MD Nicotine, Bloodon 04-26-2020 [id number] <2 ng/mL [facility] [place], [place] Cotinine <2 ng/mL [facility], [place] Nicotine <2 ng/mL [facility], [place] Comment on above: (NOTE) Consistent with abstinence from nicotine-containing products for at least 1 week. INTERPRETIVE INFORMATION: Nicotine and Metabolites, Serum or Plasma, Quantitative Methodology: Quantitative Liquid Chromatography-Tandem Mass Spectrometry Positive cutoff: 2 ng/mL For medical purposes only; not valid for forensic use. This test is designed to evaluate recent use of nicotine-containing products. Passive and active exposure cannot be discriminated definitively, although a cutoff of 10 ng/mL cotinine is frequently used for surgery qualification purposes. For smoking cessation programs or compliance testing, the absence of expected drug(s) and/or drug metabolite(s) may indicate non-compliance, inappropriate timing of specimen collection relative to drug administration, poor drug absorption, or limitations of testing. This test cannot distinguish between use of tobacco and purified nicotine products. The concentration value must be greater than or equal to the cutoff to be reported as positive. Test developed and characteristics determined by [employer]. See Compliance Statement B: [employer] Performed By: [facility] [address] [place] [address] Specialized Language Instructor: Lynn Layne MD EKG 12 Leadon 04-23-2020 Atrial Rate 95 BPM [place], [place] P Ullin 14 degrees [place] P-R Interval 134 ms [place], [place] Q-T Interval 398 ms [place] QRS Duration 94 ms [place] QTc Calculation (Bazett) 500 ms [place], [place] R Ullin [address] [facility], [place] T Ullin 32 degrees [place] Ventricular Rate 95 BPM [place], [place] Normal sinus rhythm with sinus arrhythmia Prolonged QT Abnormal ECG No previous ECGs available [place], [place] Julius, Mhpn Incoming E kg Results From [facility] - 04/23/2020 12:32 PM EST Normal sinus rhythm with sinus arrhythmia Prolonged QT Abnormal ECG No previous ECGs available [place] APTTon 04-22-2020 aPTT Coag (Bld) [Time] 22.2 s Normal 20.5-30.5 [facility] Comment on above: Result Comment: IV Heparin Therapy Range: 48.6-77.8 Performed By: #### C BC, PT, PTT, BMP #### [facility] [address] [place] [address] Adding Machine Servicer: Casey Marques MD #### ANICOT #### [facility] [address] [place] [address] Adding Machine Servicer: Adolph Diaz MD aPTT Coag (Bld) [Time] 22.2 s [place], [place] Comment on above: IV Heparin Therapy Range: 48.6-77.8 Basic Metabolic Panelon Anion gap [Moles/Vol] 12 mmol/L 9 - 17 mmol/L [place] Bun/Cre Ratio NOT REPORTED [place], [place] Calcium [Mass/Vol] 9.2 mg/dL 8.6 - 10. 4 mg/dL [place] Chloride [Moles/Vol] 104 mmol/L 98 - 10 7 mmol/L [place] CO2 [Moles/Vol] 23 mmol/L 20 - 31 mmol/L [place] Creatinine [Mass/Vol] 0.69 mg/dL 0.5 - 0.9 mg/dL [place] GFR >60 >60 mL/min [place] GFR Non- >60 >60 mL/min [place] GFR/1.73 sq M predicted among non-blacks MDRD (S/P/Bld) [Vol rate/Area] NOT REPORTED [place] GFR/1.73 sq M predicted among non-blacks MDRD (S/P/Bld) [Vol rate/Area] [place] Comment on above: Average GFR for 20-2 9 years old: 116 mL/min/1.73sq m Chronic Kidney Disease: <60 mL/min/1.73sq m Kidney failure: <15 mL/min/1.73sq m eGFR calculated using average adult body mass. Additional eGFR calculator available at: http://www.ItsMyURLs.[employer]/multiple_crcl_2011.htm Glucose [Mass/Vol] 123 mg/dL High 70 - 99 mg/dL [place] Interpretation and review of laboratory results Abnormal [place] Potassium [Moles/Vol] 4.1 mmol/L 3.7 - 5.3 mmol/L [place] Sodium [Moles/Vol] 139 mmol/L 135 - 144 mmol/L [place] Urea nitrogen [Mass/Vol] 7 mg/dL 6 - 20 mg/dL [place] Basic Metabolic Profon 04-22 (cont.) Normal [facility] Comment on above: Result Comment: Aver age GFR for 20-29 years old: 116 mL/min/1.73sq m Chronic Kidney Disease: <60 mL/min/1.73sq m Kidney failure: <15 mL/min/1.73sq m eGFR calculated using average adult body mass. Additional eGFR calculator available at: http://www.Yammer/multiple_crcl_2012.htm Performed By: #### C BC, PT, PTT, BMP #### [facility] [address] [place] [address] Adding Machine Servicer: Casey Marques MD #### ANICOT #### [address] [address] Adding Machine Servicer: Adolph Diaz MD Anion gap [Moles/Vol] 12 mmol/L Normal 9-17 [facility] Comment on above: Performed By: #### C BC, PT, PTT, BMP #### [facility] [address] [place] [address] Adding Machine Servicer: Casey Marques MD #### ANICOT #### [address] [address] Adding Machine Servicer: Adolph Diaz MD Calcium [Mass/Vol] 9.2 mg/dL Normal 8.6-10.4 [facility] Comment on above: Performed By: #### C BC, PT, PTT, BMP #### [facility] [address] [place] [address] Adding Machine Servicer: Casey Marques MD #### ANICOT #### [facility] [address] [place] [address] Adding Machine Servicer: Adolph Diaz MD Chloride [Moles/Vol] 104 mmol/L Normal 98-107 [facility] Comment on above: Performed By: #### C BC, PT, PTT, BMP #### [facility] [address] [place] [address] Adding Machine Servicer: Casey Marques MD #### ANICOT #### [facility] [address] [place] [address] Adding Machine Servicer: Adolph Diaz MD CO2 [Moles/Vol] 23 mmol/L Normal 20-31 [facility] Comment on above: Performed By: #### C BC, PT, PTT, BMP #### [facility] [address] [place] [address] Adding Machine Servicer: Casey Marques MD #### ANICOT #### [facility] [address] [place], [place] [id number] Adding Machine Servicer: Adolph Diaz MD Creatinine [Mass/Vol] 0.69 mg/dL Normal 0.50-0.90 [facility] Comment on above: Performed By: #### C BC, PT, PTT, BMP #### [address] [address] Adding Machine Servicer: Casey Marques MD #### ANICOT #### [facility] [address] [place] [address] Adding Machine Servicer: Adolph Diaz MD GFR, Amer >60 Normal >60 [facility] Comment on above: Performed By: #### C BC, PT, PTT, BMP #### [facility] [address] [place] [address] Adding Machine Servicer: Casey Marques MD #### ANICOT #### [facility] [address] [place] [address] Adding Machine Servicer: Adolph Diaz MD GFR,non Amer >60 Normal >60 [facility] Comment on above: Performed By: #### C BC, PT, PTT, BMP #### [facility] [address] [place] [address] Adding Machine Servicer: Casey Marques MD #### ANICOT #### [facility] [address] [place] [address] Adding Machine Servicer: Adolph Diaz MD Glucose [Mass/Vol] 123 mg/dL High 70-99 [facility] Comment on above: Performed By: #### C BC, PT, PTT, BMP #### [facility] [address] [place] [address] Adding Machine Servicer: Casey Marques MD #### ANICOT #### [facility] [address] [place] [address] Adding Machine Servicer: Adolph Diaz MD Potassium [Moles/Vol] 4.1 mmol/L Normal 3.7-5.3 [facility] Comment on above: Performed By: #### C BC, PT, PTT, BMP #### [address] [address] Adding Machine Servicer: Casey Marques MD #### ANICOT #### [facility] [address] [place], [place] [id number] Adding Machine Servicer: Adolph Diaz MD Sodium [Moles/Vol] 139 mmol/L Normal 135-144 [facility] Comment on above: Performed By: #### C BC, PT, PTT, BMP #### [address] [address] Adding Machine Servicer: Casey Marques MD #### ANICOT #### [facility] [address] [place], [place] [id number] Adding Machine Servicer: Adolph Diaz MD Urea nitrogen [Mass/Vol] 7 mg/dL Normal 6-20 [facility] Comment on above: Performed By: #### C BC, PT, PTT, BMP #### [facility] [address] [place] [address] Adding Machine Servicer: Casey Marques MD #### ANICOT #### [facility] [address] [place] [address] Adding Machine Servicer: Adolph Diaz MD BUN/CRE Ratio NOT REPORTED Normal 9-20 [facility] Comment on above: Performed By: #### C BC, PT, PTT, BMP #### [address] [address] Adding Machine Servicer: Casey Marques MD #### ANICOT #### [facility] [address] [place] [address] Adding Machine Servicer: Adolph Diaz MD Staging: NOT REPORTED Normal [facility] Comment on above: Performed By: #### C BC, PT, PTT, BMP #### [address] [address] Adding Machine Servicer: Casey Marques MD #### ANICOT #### [facility] [address] [place] [address] Adding Machine Servicer: Adolph Diaz MD [facility] 04-22-2020 Erythrocyte distribution width (RBC) [Ratio] 14.6 % High 11.8-14.4 [facility] Comment on above: Performed By: #### C BC, PT, PTT, BMP #### [address] [address] Adding Machine Servicer: Casey Marques MD #### ANICOT #### [facility] [address] [place] [address] Adding Machine Servicer: Adolph Diaz MD Hematocrit (Bld) [Volume fraction] 40.8 % Normal 36.3-47.1 [facility] Comment on above: Performed By: #### C BC, PT, PTT, BMP #### [facility] [address] [place] [address] Adding Machine Servicer: Casey Marques MD #### ANICOT #### [facility] [address] [place], [place] [id number] Adding Machine Servicer: Adolph Diaz MD Hemoglobin (Bld) [Mass/Vol] 12.8 g/dL Normal 11.9-15.1 [facility] Comment on above: Performed By: #### C BC, PT, PTT, BMP #### [address] [phone] Adding Machine Servicer: Casey Marques MD #### ANICOT #### [facility] [address] [place] [phone] Adding Machine Servicer: Adolph Diaz MD MCH (RBC) [Entitic mass] 26.5 pg Normal 25.2-33.5 [facility] Comment on above: Performed By: #### C BC, PT, PTT, BMP #### [place] [phone] Adding Machine Servicer: Casey Marques MD #### ANICOT #### [address] [phone] Adding Machine Servicer: Adolph Diaz MD MCHC (RBC) [Mass/Vol] 31.4 g/dL Normal 28.4-34.8 [facility] Comment on above: Performed By: #### C BC, PT, PTT, BMP #### [address] [phone] Adding Machine Servicer: Casey Marques MD #### ANICOT #### [facility] [address] [place] [phone] Adding Machine Servicer: Adolph Diaz MD MCV (RBC) [Entitic vol] 84.5 fL Normal 82.6-102.9 [facility] Comment on above: Performed By: #### C BC, PT, PTT, BMP #### [address] [phone] Adding Machine Servicer: Casey Marques MD #### ANICOT #### [facility] [address] [place] [address] Adding Machine Servicer: Adolph Diaz MD NRBC Automated 0.0 per 100 WBC Normal 0.0 [facility] Comment on above: Performed By: #### C BC, PT, PTT, BMP #### [address] [address] Adding Machine Servicer: Casey Marques MD #### ANICOT #### [facility] [address] [place] [address] Adding Machine Servicer: Adolph Diaz MD Platelet mean volume (Bld) [Entitic vol] 8.7 fL Normal 8.1-13.5 [facility] Comment on above: Performed By: #### C BC, PT, PTT, BMP #### [address] [address] Adding Machine Servicer: Casey Marques MD #### ANICOT #### [facility] [address] [place] [address] Adding Machine Servicer: Adolph Diaz MD Platelets (Bld) [#/Vol] 298 10*3/uL Normal 138-453 [facility] Comment on above: Performed By: #### C BC, PT, PTT, BMP #### [address] [phone] Adding Machine Servicer: Casey Marques MD #### ANICOT #### [facility] [address] [place] [address] Adding Machine Servicer: Adolph Diaz MD RBC (Bld) [#/Vol] 4.83 10*6/uL Normal 3.95-5.11 [facility] Comment on above: Performed By: #### C BC, PT, PTT, BMP #### [address] [phone] Adding Machine Servicer: Casey Marques MD #### ANICOT #### [facility] [address] [place] [address] Adding Machine Servicer: Adolph Diza MD WBC (Bld) [#/Vol] 10.8 10*3/uL Normal 3.5-11.3 [facility] Comment on above: Performed By: #### C BC, PT, PTT, BMP #### [facility] [address] [place], [place] [phone] Adding Machine Servicer: Casey Marques MD #### ANICOT #### [facility] [address] [place] [address] Adding Machine Servicer: Adolph Diaz MD Erythrocyte distribution width (RBC) [Ratio] 14.6 % High 11.8 - 14.4 % [place] Hematocrit (Bld) [Volume fraction] 40.8 % 36.3 - 47.1 % [place] Hemoglobin (Bld) [Mass/Vol] 12.8 g/dL 11.9 - 15.1 g/dL [place] Interpretation and review of laboratory results Abnormal [place] MCH (RBC) [Entitic mass] 26.5 pg 25.2 - 33.5 pg [place] MCHC (RBC) [Mass/Vol] 31.4 g/dL 28.4 - 34.8 g/dL [place] MCV (RBC) [Entitic vol] 84.5 fL 82.6 - 102.9 fL [place] Platelet mean volume (Bld) [Entitic vol] 8.7 fL 8.1 - 13.5 fL [place] Platelets (Bld) [#/Vol] 298 10*3/uL [place] RBC (Bld) [#/Vol] 4.83 10*6/uL 3.95 - 5.1 1 m/uL [place] WBC (Bld) [#/Vol] 10.8 10*3/uL [place] WBC (Bld) [#/Vol] 0.0 10*3/uL 0.0 per [address] [facility] [place] Otheron 04-22-2020 No acute [facility] TWO XRA Y VIEWS OF THE CHEST 04/22/2020 2:46 pm COMPARISON: Baseline examination HISTORY: ORDERING SYSTEM PROVIDED HISTORY: preop gastric bypass Ben En Y TECHNOLOGIST PROVIDED HISTORY: preop gastric bypass Ben En Y Reason for Exam: preop gastric bypass FINDINGS: Normal cardiopericardial silhouette There are no significant pleural, parenchymal, mediastinal or osseous findings [facility] NORMA Julius, Mhpn Incoming Radiant Results From [facility] - 04/22/2020 3:28 PM EST EXAMINATION: TWO XRAY VIEWS OF THE CHEST 04/22/2020 2:46 pm COMPARISON: Baseline examination HISTORY: ORDERING SYSTEM PROVIDED HISTORY: preop gastric bypass Ben En Y TECHNOLOGIST PROVIDED HISTORY: preop gastric bypass Ben En Y Reason for Exam: preop gastric bypass FINDINGS: Normal cardiopericardial silhouette There are no significant pleural, parenchymal, mediastinal or osseous findings IMPRESSION: No acute cardiopulmonary findings [facility] [place] PTon 04-22-2020 INR Coag (PPP) [Relative time] 0.9 {INR} Normal [facility] Comment on above: Result Comment: Therapeutic Range: Moderate Anticoagulant Intensity: INR = 2.0-3.0 High Anticoagulant Intensity: INR = 2.5-3.5 Performed By: #### C BC, PT, PTT, BMP #### [facility] [address] [place] [address] Adding Machine Servicer: Casey Marques MD #### ANSAMMIET #### [facility] [address] [place] [address] Adding Machine Servicer: Adolph Diaz MD PT Coag (PPP) [Time] 9.3 s Normal 9.0-12.0 [facility] Comment on above: Performed By: #### C BC, PT, PTT, BMP #### [facility] [address] [place] [phone] Adding Machine Servicer: Casey Marques MD #### ANICOT #### [facility] [address] [place] [address] Adding Machine Servicer: Adolph Diaz MD [facility] 04-22-2020 INR Coag (PPP) [Relative time] 0.9 {INR} [place] Comment on above: Therapeutic Range: Moderate Anticoagulant Intensity: INR = 2.0-3.0 High Anticoagulant Intensity: INR = 2.5-3.5 PT Coag (PPP) [Time] 9.3 s [place] XR CHEST (2 VW)on 04-22-2020 XR CHEST (2 VW) EXAMINATION: TWO XRAY VIEWS OF THE CHEST 04/22/2020 2:46 pm COMPARISON: Baseline examination HISTORY: ORDERING SYSTEM PROVIDED HISTORY: preop gastric bypass Ben En Y TECHNOLOGIST PROVIDED HISTORY: preop gastric bypass Ben En Y Reason for Exam: preop gastric bypass FINDINGS: Normal cardiopericardial silhouette There are no significant pleural, parenchymal, mediastinal or osseous findings IMPRESSION: No acute cardiopulmonary findings Interpreted by: Roxanne Avitia MD Signed by: Roxanne Avitia MD 04/22/20 Final result Normal [facility] Vital Signs Date Time Vital Sign Value Performing Clinician Sonal lerma 10-22-2024 11:28-0400 Body mass index (BMI) [Ratio] 31.24 kg/m2 Les Juan DO Work Phone: [facility] 10-22-2024 11:28-0400 Body weight 101.61 kg Les Juan DO Work Phone: [facility] 10-22-2024 11:28-0400 Diastolic blood pressure 62 mm[Hg] Les Juan DO Work Phone: [facility] 10-22-2024 11:28-0400 Systolic blood pressure 110 mm[Hg] Les Juan DO Work Phone: [facility] 10-18-2024 13:34-0400 Diastolic blood pressure 71 mm[Hg] Amanda Ford APRN Work Phone: [facility] 10-18-2024 13:34-0400 Heart rate 60 /min Amanda Hahndeirdre SECURITY INSTALLER Work Phone: [facility] 10-18-2024 13:34-0400 Respiratory rate 18 /min Amanda Ford APRN Work Phone: [facility] 10-18-2024 13:34-0400 SaO2% (BldA) [Mass fraction] 99 % Amanda Ford SECURITY INSTALLER Work Phone: [facility] 10-18-2024 13:34-0400 Systolic blood pressure 112 mm[Hg] Amanda Ford SECURITY INSTALLER Work Phone: [facility] 10-18-2024 10:38-0400 Body height 180.34 cm Amanda Ford SECURITY INSTALLER Work Phone: [facility] 10-18-2024 10:38-0400 Body temperature 98.1 [degF] Amanda Ford APRN Work Phone: [facility] 10-18-2024 10:38-0400 Body weight 106.85 kg Amanda Ford APRN Work Phone: [facility] 09-20-2024 15:06-0400 Body mass index (BMI) [Ratio] 31.24 kg/m2 [facility] Nurse [facility] 09-20-2024 15:06-0400 Body weight 101.61 kg [facility] Nurse [facility] 09-20-2024 15:06-0400 Diastolic blood pressure 74 mm[Hg] [facility] Nurse [facility] 09-20-2024 15:06-0400 Systolic blood pressure 122 mm[Hg] [facility] Nurse [facility] 08-22-2024 10:04-0400 Body height 180.3 cm Darleen Sinclair MD Work Phone: [facility] 08-22-2024 10:04-0400 Body mass index (BMI) [Ratio] 29.99 kg/m2 Darleen Sinclair MD Work Phone: [facility] 08-22-2024 10:04-0400 Body weight 97.52 kg Darleen Sinclair MD Work Phone: [facility] 08-22-2024 10:04-0400 Diastolic blood pressure 56 mm[Hg] Darleen Sinclair MD Work Phone: [facility] 08-22-2024 10:04-0400 Heart rate 67 /min Darleen Sinclair MD Work Phone: [facility] 08-22-2024 10:04-0400 Respiratory rate 16 /min Darleen Sinclair MD Work Phone: [facility] 08-22-2024 10:04-0400 SaO2% (BldA) [Mass fraction] 99 % Darleen Sinclair MD Work Phone: [facility] 08-22-2024 10:04-0400 Systolic blood pressure 124 mm[Hg] Darleen Sinclair MD Work Phone: [facility] 04-26-2024 08:32-0500 Body height 180.34 cm [facility] 04-26-2024 08:32-0500 Body mass index (BMI) [Ratio] 30.4 kg/m2 [facility] 04-26-2024 08:32-0500 Body temperature 97.3 [degF] [facility] 04-26-2024 08:32-0500 Body weight 98.99 kg [facility] 04-26-2024 08:32-0500 Diastolic blood pressure 60 mm[Hg] [facility] 04-26-2024 08:32-0500 Heart rate 73 /min [facility] 04-26-2024 08:32-0500 SaO2% (BldA) [Mass fraction] 98 % [facility] 04-26-2024 08:32-0500 Systolic blood pressure 112 mm[Hg] [facility] 02-28-2024 14:03-0500 Body height 180.3 cm Ignacio Guy MD Work Phone: [facility] 02-28-2024 14:03-0500 Body mass index (BMI) [Ratio] 30.23 kg/m2 Ignacio Guy MD Work Phone: [facility] 02-28-2024 14:03-0500 Body weight 98.3 kg Ignacio Guy MD Work Phone: [facility] 02-20-2024 15:12-0500 Body mass index (BMI) [Ratio] 31.71 kg/m2 Les Juan DO Work Phone: [facility] 02-20-2024 15:12-0500 Body weight 100.25 kg Les Juan DO Work Phone: [facility] 02-20-2024 15:12-0500 Diastolic blood pressure 68 mm[Hg] Les Juan DO Work Phone: [facility] 02-20-2024 15:12-0500 Systolic blood pressure 118 mm[Hg] Les Juan DO Work Phone: [facility] 12-07-2023 11:46-0400 Diastolic blood pressure 67 mm[Hg] MELY Ford Work Phone: [facility] 12-07-2023 11:46-0400 Heart rate 76 /min SECURITY INSTALLERTanja Ford Work Phone: [facility] 12-07-2023 11:46-0400 Respiratory rate 16 /min SECURITY INSTALLERTanja Ford Work Phone: [facility] 12-07-2023 11:46-0400 SaO2% (BldA) [Mass fraction] 99 % SECURITY INSTALLERTanja Ford Work Phone: [facility] 12-07-2023 11:46-0400 Systolic blood pressure 149 mm[Hg] MELY Ford Work Phone: [facility] 12-07-2023 10:20-0400 Body temperature 98 [degF] MELY Ford Work Phone: [facility] 12-07-2023 09:55-0400 Inhaled oxygen flow rate 3 L/min SECURITY INSTALLERTanja Ford Work Phone: [facility] 12-07-2023 06:29-0400 Body height 180.34 cm MELY Becerrafer Logan Work Phone: [facility] 12-07-2023 06:29-0400 Body weight 95.25 kg MELY Ford Work Phone: [facility] 11-01-2023 11:56-0400 Body height 180.34 cm SECURITY INSTALLERTanja Ford Work Phone: [facility] 11-01-2023 11:56-0400 Body mass index (BMI) [Ratio] 28.8 kg/m2 SECURITY INSTALLERTanja Ford Work Phone: [facility] 11-01-2023 11:56-0400 Body weight 93.89 kg MELY Becerrafer Logan Work Phone: [facility] 06-08-2023 14:56-0500 Body height 180.34 cm [facility] 06-08-2023 14:56-0500 Body mass index (BMI) [Ratio] 29.4 kg/m2 [facility] 06-08-2023 14:56-0500 Body weight 95.7 kg [facility] 06-08-2023 14:56-0500 Diastolic blood pressure 68 mm[Hg] [facility] 06-08-2023 14:56-0500 Heart rate 51 /min [facility] 06-08-2023 14:56-0500 SaO2% (BldA) [Mass fraction] 98 % [facility] 06-08-2023 14:56-0500 Systolic blood pressure 122 mm[Hg] [facility] 05-17-2023 14:30-0500 Body height 180.34 cm Romeo Santana Other [facility] 05-17-2023 14:30-0500 Body mass index (BMI) [Ratio] 27.47 kg/m2 Romeo Santana Other [facility] Other 05-17-2023 14:30-0500 Body weight 89.36 kg Romeo Santana Other [facility] Other 05-17-2023 14:30-0500 Body weight 89.35 kg [facility] 02-07-2023 14:30-0400 Body height 180.34 cm Petr Lay Other [facility] Other 02-07-2023 14:30-0400 Body mass index (BMI) [Ratio] 27.61 kg/m2 Petr Lay Other [facility] Other 02-07-2023 14:30-0400 Body temperature 98.1 [degF] Petr Lay Other [facility] Other 02-07-2023 14:30-0400 Body weight 89.81 kg Petr Lay Other [facility] Other 02-07-2023 14:30-0400 Diastolic blood pressure 76 mm[Hg] Petr Lay Other [facility] Other 02-07-2023 14:30-0400 SaO2% (BldA) [Mass fraction] 99 % Petr Lay Other [facility] Other 02-07-2023 14:30-0400 Systolic blood pressure 128 mm[Hg] Petr Lay Other [facility] Other 12-27-2022 11:30-0400 Body height 180.34 cm Petr Lay Other [facility] Other 12-27-2022 11:30-0400 Body mass index (BMI) [Ratio] 28.03 kg/m2 Petr Lay Other [facility] Other 12-27-2022 11:30-0400 Body weight 91.17 kg Petr aLy Other [facility] Other 12-27-2022 11:30-0400 Diastolic blood pressure 64 mm[Hg] Petr Lay Other [facility] Other 12-27-2022 11:30-0400 Respiratory rate 18 /min Petr Lay Other [facility] Other 12-27-2022 11:30-0400 SaO2% (BldA) [Mass fraction] 99 % Petr Lay Other [facility] Other 12-27-2022 11:30-0400 Systolic blood pressure 128 mm[Hg] Petr Lay Other [facility] Other 10-11-2022 13:30-0400 Body height 180.34 cm Petr Lay Other [facility] Other 10-11-2022 13:30-0400 Body mass index (BMI) [Ratio] 28.78 kg/m2 Petr Lay Other [facility] Other 10-11-2022 13:30-0400 Body weight 93.62 kg Petr Lay Other [facility] Other 10-11-2022 13:30-0400 Diastolic blood pressure 78 mm[Hg] Petr Alireza Other [facility] Other 10-11-2022 13:30-0400 Respiratory rate 18 /min Petr Patmer Other [facility] Other 10-11-2022 13:30-0400 SaO2% (BldA) [Mass fraction] 98 % Petr Patmer Other [facility] Other 10-11-2022 13:30-0400 Systolic blood pressure 122 mm[Hg] Petr Alireza Other [facility] Other 09-30-2022 08:00-0400 Body height 180.34 cm Amanda Ford Other [facility] Other 09-30-2022 08:00-0400 Body mass index (BMI) [Ratio] 28.03 kg/m2 Amanda Ford Other [facility] Other 09-30-2022 08:00-0400 Body weight 91.17 kg Amanda Ford Other [facility] Other 09-30-2022 08:00-0400 Diastolic blood pressure 84 mm[Hg] Amanda Ford Other [facility] Other 09-30-2022 08:00-0400 SaO2% (BldA) [Mass fraction] 95 % Amanda Ford Other [facility] Other 09-30-2022 08:00-0400 Systolic blood pressure 126 mm[Hg] Amanda Ford Other [facility] Other 08-25-2022 15:30-0400 Body height 180.34 cm Amanda Ponceacher Other [facility] Other 08-25-2022 15:30-0400 Body mass index (BMI) [Ratio] 29.15 kg/m2 Amanda Shethrbacher Other [facility] Other 08-25-2022 15:30-0400 Body weight 94.8 kg Amanda Shethrbacher Other [facility] Other 08-25-2022 15:30-0400 Diastolic blood pressure 77 mm[Hg] Amanda Shethrbacher Other [facility] Other 08-25-2022 15:30-0400 Systolic blood pressure 126 mm[Hg] Amanda Shethrbacher Other [facility] Other 08-20-2022 11:00-0400 Body height 180.34 cm Amanda Ponceacher Other [facility] Other 08-20-2022 11:00-0400 Body mass index (BMI) [Ratio] 28.73 kg/m2 Amanda Merylrbacher Other [facility] Other 08-20-2022 11:00-0400 Body weight 93.44 kg Amanda Shethrbacher Other [facility] Other 08-20-2022 11:00-0400 Diastolic blood pressure 72 mm[Hg] Amanda Shethrbacher Other [facility] Other 08-20-2022 11:00-0400 SaO2% (BldA) [Mass fraction] 100 % Amanda Shethbilly Other [facility] [employer] Other 08-20-2022 11:00-0400 Systolic blood pressure 118 mm[Hg] Amanda Logan Other [facility] Other 06-11-2022 16:43-0500 Body temperature 98.1 [degF] MD Robin Appiah Work Phone: [facility] 06-11-2022 16:43-0500 Diastolic blood pressure 56 mm[Hg] MD Robin Appiah Work Phone: [facility] 06-11-2022 16:43-0500 Heart rate 60 /min MD Robin Appiah Work Phone: [facility] 06-11-2022 16:43-0500 Respiratory rate 16 /min MD Robin Appiah Work Phone: [facility] 06-11-2022 16:43-0500 SaO2% (BldA) [Mass fraction] 100 % MD Robin Appiah Work Phone: [facility] 06-11-2022 16:43-0500 Systolic blood pressure 102 mm[Hg] MD Robin Appiah Work Phone: [facility] 06-11-2022 09:40-0500 Body height 180.34 cm MD Robin Appiah Work Phone: [facility] 06-11-2022 05:42-0500 Body weight 93 kg MD Robin Appiah Work Phone: [facility] 06-10-2022 17:55-0500 Body temperature 98.1 [degF] MD Robin Appiah Work Phone: [facility] 06-10-2022 17:55-0500 Diastolic blood pressure 56 mm[Hg] MD Robin Appiah Work Phone: [facility] 06-10-2022 17:55-0500 Heart rate 62 /min MD Robin Appiah Work Phone: [facility] 06-10-2022 17:55-0500 Respiratory rate 18 /min MD Robin Appiah Work Phone: [facility] 06-10-2022 17:55-0500 SaO2% (BldA) [Mass fraction] 100 % MD Robin Appiah Work Phone: [facility] 06-10-2022 17:55-0500 Systolic blood pressure 122 mm[Hg] MD Robin Appiah Work Phone: [facility] 06-10-2022 14:22-0500 Body height 180.34 cm MD Robin Appiah Work Phone: [facility] 06-10-2022 14:22-0500 Body weight 92.7 kg MD Robin Appiah Work Phone: [facility] 04-21-2022 15:00-0500 Body height 180.34 cm Amanda Ford Other [facility] Other 04-21-2022 15:00-0500 Body mass index (BMI) [Ratio] 27.81 kg/m2 Amanda Ford Other [facility] Other 04-21-2022 15:00-0500 Body temperature 98.2 [degF] Amanda Ford Other [facility] Other 04-21-2022 15:00-0500 Body weight 90.45 kg Amanda Ford Other [facility] Other 04-21-2022 15:00-0500 Diastolic blood pressure 68 mm[Hg] Amanda Logan Other [facility] Other 04-21-2022 15:00-0500 Respiratory rate 18 /min Amanda Logan Other [facility] Other 04-21-2022 15:00-0500 SaO2% (BldA) [Mass fraction] 99 % Amanda Logan Other [facility] Other 04-21-2022 15:00-0500 Systolic blood pressure 111 mm[Hg] Amanda Logan Other [facility] Other 04-10-2022 21:41-0500 Diastolic blood pressure 56 mm[Hg] MD Robin Appiah Work Phone: [facility] 04-10-2022 21:41-0500 Systolic blood pressure 112 mm[Hg] MD Robin Appiah Work Phone: [facility] 04-10-2022 18:14-0500 Body height 180.34 cm MD Robin Appiah Work Phone: [facility] 04-10-2022 18:14-0500 Body temperature 98.1 [degF] MD Robin Appiah Work Phone: [facility] 04-10-2022 18:14-0500 Body weight 88 kg MD Robin Appiah Work Phone: [facility] 04-10-2022 18:14-0500 Heart rate 119 /min MD Robin Appiah Work Phone: [facility] 04-10-2022 18:14-0500 Respiratory rate 18 /min MD Robin Appiah Work Phone: [facility] 04-10-2022 18:14-0500 SaO2% (BldA) [Mass fraction] 100 % MD Robin Appiah Work Phone: [facility] 04-08-2022 17:15-0500 Body temperature 97.5 [degF] MD Robin Appiah Work Phone: [facility] 04-08-2022 17:15-0500 Diastolic blood pressure 59 mm[Hg] MD Robin Appiah Work Phone: [facility] 04-08-2022 17:15-0500 Heart rate 59 /min MD Robin pApiah Work Phone: [facility] 04-08-2022 17:15-0500 Respiratory rate 18 /min MD Robin Appiah Work Phone: [facility] 04-08-2022 17:15-0500 SaO2% (BldA) [Mass fraction] 100 % MD Robin Appiah Work Phone: [facility] 04-08-2022 17:15-0500 Systolic blood pressure 128 mm[Hg] MD Robin Appiah Work Phone: [facility] 04-08-2022 14:33-0500 Body height 180.34 cm MD Robin Appiah Work Phone: [facility] 04-08-2022 14:33-0500 Body weight 88.1 kg MD Robin Appiah Work Phone: [facility] 03-23-2022 15:30-0500 Body height 180.34 cm Amanda Ford Other [facility] Other 03-23-2022 15:30-0500 Body mass index (BMI) [Ratio] 27.05 kg/m2 Amanda Ford Other [facility] Other 03-23-2022 15:30-0500 Body weight 88 kg Amanda Ford Other [facility] Other 03-23-2022 15:30-0500 Diastolic blood pressure 82 mm[Hg] Amanda Logan Other [facility] Other 03-23-2022 15:30-0500 SaO2% (BldA) [Mass fraction] 98 % Amanda Logan Other [facility] Other 03-23-2022 15:30-0500 Systolic blood pressure 137 mm[Hg] Amanda Logan Other [facility] Other 02-08-2022 10:00-0400 Body height 180.34 cm Amanda Logan Other [facility] Other 02-08-2022 10:00-0400 Body mass index (BMI) [Ratio] 27.47 kg/m2 Amanda Logan Other [facility] Other 02-08-2022 10:00-0400 Body weight 89.36 kg Amanda Logan Other [facility] Other 02-08-2022 10:00-0400 Diastolic blood pressure 62 mm[Hg] Amanda Ford Other [facility] Other 02-08-2022 10:00-0400 Systolic blood pressure 110 mm[Hg] Amanda Ford Other [facility] Other 09-01-2021 14:38-0400 Blood Pressure Location Samir [facility] 09-01-2021 14:38-0400 Diastolic blood pressure 61 mm[Hg] Samir [facility]off[facility] 09-01-2021 14:38-0400 Heart rate 61 /min Samir Christoff[facility] 09-01-2021 14:38-0400 Respiratory rate 18 /min Samir [facility]off[facility] 09-01-2021 14:38-0400 SaO2% (BldA) [Mass fraction] 100 % Samir [facility] 09-01-2021 14:38-0400 Systolic blood pressure 103 mm[Hg] Samir [facility] 07-24-2021 14:39-0400 Blood Pressure Location Samir Christoff[facility] 07-24-2021 14:39-0400 Diastolic blood pressure 77 mm[Hg] Samir [facility] 07-24-2021 14:39-0400 Heart rate 65 /min Samir [facility]off[facility] 07-24-2021 14:39-0400 Respiratory rate 18 /min Samir [facility] 07-24-2021 14:39-0400 SaO2% (BldA) [Mass fraction] 100 % Samir [facility] 07-24-2021 14:39-0400 Systolic blood pressure 115 mm[Hg] Samir [facility] 07-16-2021 11:00-0400 Body height 180.34 cm Amanda Ford Other [facility] Other 07-16-2021 11:00-0400 Body mass index (BMI) [Ratio] 29.15 kg/m2 Amanda Ricci [facility] Other 07-16-2021 11:00-0400 Body weight 94.8 kg Amanda Logan Other [facility] Other 07-16-2021 11:00-0400 Diastolic blood pressure 64 mm[Hg] Amanda Logan Other [facility] Other 07-16-2021 11:00-0400 SaO2% (BldA) [Mass fraction] 98 % Amanda Logan Other [facility] Other 07-16-2021 11:00-0400 Systolic blood pressure 102 mm[Hg] Amanda Logan Other [facility] Other 05-08-2020 08:20-0500 Body Temperature 97.7 [degF] [facility] [employer] 05-08-2020 08:20-0500 BP Diastolic 89 mm[Hg] [facility] [place] [facility] 08:20-0500 BP Systolic 156 mm[Hg] [facility] [place] 05-08-2020 08:20-0500 Pulse (Heart Rate) 101 /min Rashard Olivera [employer] [facility] [place] 05-08-2020 08:20-0500 Pulse Oximetry 96 % [facility] [place] 05-08-2020 08:20-0500 Respiratory Rate 19 /min [facility] [place] 05-06-2020 08:51-0500 BMI (Body Mass Index) 58.86 kg/m2 [facility] [place] 05-06-2020 08:51-0500 Body weight 191.42 kg [facility] [place] 05-06-2020 08:51-0500 Height 180.3 cm Rashard Olivera [facility] 04-22-2020 13:30-0500 BMI (Body Mass Index) 61.79 kg/m2 [address], [place] 04-22-2020 13:30-0500 Body Temperature 97.11 [degF] [address], [place] 04-22-2020 13:30-0500 Body weight 200.[address] , [place] 04-22-2020 13:30-0500 BP Diastolic 90 mm[Hg] [address] , [place] 04-22-2020 13:30-0500 BP Systolic 148 mm[Hg] [address] , [place] 04-22-2020 13:30-0500 Height 180.[address] , [place] 04-22-2020 13:30-0500 Pulse (Heart Rate) 104 /min [address], [place] 04-22-2020 13:30-0500 Pulse Oximetry 97 % [address] , [place] 04-22-2020 13:30-0500 Respiratory Rate 18 /min [address] Encounters Encounter Date Encounter Type Care Provider Facility Start: 10-26-2024 End: 10-26-2024 Orders Only Not In System Ref Prov [facility] Start: 10-22-2024 End: 10-22-2024 Office outpatient visit 15 minutes Les Martinez DO Work Phone: [facility] OB Comment on above: 13 weeks gestation o f ([facility]); Second trimester ([facility]); Thyroid disease ; H/O gastric sleeve; H/O iron deficiency anemia; resulting from in vitro fertilization in first trimester ([facility]) Start: 10-22-2024 End: 10-22-2024 ambulatory LES MARTINEZ Not Available Start: 10-18-2024 End: 10-18-2024 Emergency department patient visit Amanda Ford APRN Work Phone: -Emergency Room Work Phone: Start: 10-10-2024 End: 10-10-2024 Clinisync Result Encounter Les Martinez DO Work Phone: [facility] Unsolicited Start: 10-10-2024 End: 10-10-2024 Clinisync Result Encounter Les Martinez DO Work Phone: [facility] Unsolicited Start: 09-26-2024 End: 09-26-2024 [facility] Start: 09-20-2024 End: 09-20-2024 Office outpatient visit 5 minutes [facility] Juan Nurse [facility] Comment on above: GA: 9w2d Start: 09-20-2024 End: 09-20-2024 ambulatory DARLEEN SINCLAIR Not Available Start: 09-03-2024 End: 09-03-2024 Nursing evaluation of patient and report [facility] Rej Work Phone: [facility] Comment on above: Early stage of pregn paulo ([facility]) Start: 09-03-2024 End: 09-03-2024 ambulatory SHELLY HERNANDEZ [facility] Start: 08-28-2024 End: 08-28-2024 Nursing evaluation of patient and report [employer] [facility] Beac Work Phone: [facility] Comment on above: resulting from assisted reproductive technology in first trimester ([facility]) Start: 08-28-2024 End: 08-28-2024 ambulatory SHELLY HERNANDEZ Facility:[facility] Start: 08-24-2024 End: 08-24-2024 Telephone encounter Shelly Hernandez SECURITY INSTALLER.POTATO INSPECTOR Work Phone: [facility] Comment on above: Patient Question Start: 08-23-2024 End: 08-24-2024 Telephone encounter Shelly Hernandez SECURITY INSTALLER.POTATO INSPECTOR Work Phone: [facility] Comment on above: Pain Start: 08-22-2024 End: 08-22-2024 Bamboo flowsheet Darleen Sinclair MD Work Phone: [facility] Start: 08-22-2024 End: 08-22-2024 Bamboo flowsheet Darleen Sinclair MD Work Phone: [facility] Start: 08-22-2024 End: 08-22-2024 Office outpatient visit 25 minutes Darleen Sinclair MD Work Phone: [facility] Comment on above: Abnormal thyroid fun ction test (Primary Dx); H/O gastric bypass; 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[facility]); Vitamin D deficiency Start: 08-22-2024 End: 08-22-2024 ambulatory DARLEEN SINCLAIR Not Available Start: 08-20-2024 End: 08-20-2024 Telemedicine consultation with patient Shelly Hernandez APRN.CNP Work Phone: [facility] Start: 08-20-2024 End: 08-20-2024 ambulatory Shelly Hernandez APRN.POTATO INSPECTOR Work Phone: [facility] Comment on above: 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) (Primary Dx) Start: 08-18-2024 End: 08-23-2024 ambulatory Shelly Hernandez APRN.CNP Work Phone: [facility] Comment on above: Ultrasound Start: 08-17-2024 End: 08-17-2024 ambulatory Amanda Ford Facility:[facility] [place] Start: 08-16-2024 End: 08-16-2024 Telephone encounter Shelly Hernandez APRN.POTATO INSPECTOR Work Phone: [facility] Comment on above: positive for pregnan cy Start: 08-15-2024 End: 08-15-2024 Telephone encounter Shelly Hernandez APRN.POTATO INSPECTOR Work Phone: [facility] Comment on above: Patient Question Start: 08-15-2024 End: 08-15-2024 ambulatory Shelly Hernandez Facility:[facility] Start: 08-13-2024 End: 08-13-2024 ambulatory Shelly Hernandez Facility:[facility] Start: 07-31-2024 End: 07-31-2024 ambulatory SELF Facility:[facility] Start: 07-31-2024 End: 07-31-2024 Patient encounter procedure Andrology Forestry Extension Specialist Work Phone: [facility] Comment on above: Procreative manageme nt (Primary Dx) Start: 07-30-2024 End: 07-30-2024 Telephone encounter Shelly Hernandez APRN.POTATO INSPECTOR Work Phone: [facility] Comment on above: Patient Question Start: 07-25-2024 End: 07-25-2024 ambulatory SELF Facility:[facility] Start: 07-07-2024 End: 07-07-2024 ambulatory MIKEY TORRES Facility:[facility] Start: 07-07-2024 End: 07-07-2024 Patient encounter procedure Andrology Forestry Extension Specialist Work Phone: [facility] Comment on above: Procreative manageme nt (Primary Dx) Encounter for artifi cial insemination (Primary Dx) Start: 07-06-2024 End: 07-06-2024 Telephone encounter Shelly Hernandez APRN.POTATO INSPECTOR Work Phone: [facility] Comment on above: Patient calling back /re iui 07/07 unsure Start: 07-05-2024 End: 07-06-2024 Telephone encounter Ignacio Guy MD Work Phone: [facility] Comment on above: re iui this wknd/has cervical polyp question Start: 07-04-2024 End: 07-04-2024 Telephone encounter Shelly Hernandez APRN.POTATO INSPECTOR Work Phone: [facility] Comment on above: Treatment Planning Start: 07-04-2024 End: 07-11-2024 ambulatory Shelly Hernnadez APRN.POTATO INSPECTOR Work Phone: [facility] Comment on above: Ovulating Start: 07-04-2024 End: 07-04-2024 Patient encounter procedure [employer] 3 [facility] Be[facility] Work Phone: [facility] Start: 07-02-2024 End: 07-02-2024 ambulatory SHELLY HERNANDEZ Facility[facility] Start: 06-29-2024 End: 06-29-2024 ambulatory SHELLY HERNANDEZ Facility[facility] Start: 06-23-2024 End: 06-29-2024 ambulatory Shelly Hernandez SECURITY INSTALLER.POTATO INSPECTOR Work Phone: [facility] Comment on above: Negative t est and possible hematoma Start: 06-09-2024 End: 06-09-2024 ambulatory IGNACIO LAWSONHARISH Facility[facility] Start: 06-09-2024 End: 06-09-2024 Patient encounter procedure Andrology Forestry Extension Specialist Work Phone: [facility] Comment on above: Procreative manageme nt (Primary Dx) Female infertility ( Primary Dx) Start: 06-05-2024 End: 06-07-2024 ambulatory Shelly Hernandez SECURITY INSTALLER.POTATO INSPECTOR Work Phone: [facility] Start: 06-05-2024 End: 06-07-2024 Patient encounter procedure Shelly Hernandez SECURITY INSTALLER.POTATO INSPECTOR Work Phone: [facility] Comment on above: IUI appointment Start: 05-22-2024 End: 05-23-2024 ambulatory Shelly Hernandez SECURITY INSTALLER.POTATO INSPECTOR Work Phone: [facility] Comment on above: Progesterone results Start: 05-21-2024 End: 05-21-2024 ambulatory Shelly Hernandez Facility:[facility] Start: 05-18-2024 End: 05-18-2024 ambulatory SHELLY HERNANDEZ Facility[facility] Start: 05-09-2024 End: 05-09-2024 ambulatory Shelly Hernandez SECURITY INSTALLER.POTATO INSPECTOR Work Phone: [facility] Comment on above: Reproductive mgmt, 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) Start: 05-09-2024 End: 05-09-2024 Telemedicine consultation with patient Shelly Hernandez SECURITY INSTALLER.POTATO INSPECTOR Work Phone: [facility] Start: 05-06-2024 End: 05-07-2024 ambulatory Shelly Hernandez SECURITY INSTALLER.POTATO INSPECTOR Work Phone: [facility] Comment on above: Consent form Start: 05-02-2024 End: 05-02-2024 Telemedicine consultation with patient Saúl Enriquez PhD Work Phone: [facility] Comment on above: Bipolar 1 disorder ( Multi) (Primary Dx); Infertility counseling Start: 05-02-2024 End: 05-02-2024 ambulatory SAÚL Nikole [facility] Ambulatory Start: 04-26-2024 End: 04-26-2024 ambulatory [facility] Work Phone: Start: 04-26-2024 End: 04-26-2024 Patient encounter procedure [facility] Work Phone: Start: 04-24-2024 End: 04-24-2024 ambulatory SHELLY DAVID [facility] Start: 04-23-2024 End: 04-23-2024 [facility] Work Phone: Start: 04-23-2024 End: 04-23-2024 Patient encounter procedure [facility] Work Phone: Start: 04-02-2024 End: 04-03-2024 ambulatory Shelly Hernandez SECURITY INSTALLER.POTATO INSPECTOR Work Phone: Reproductive Endocrinology Infertility Comment on above: Genetic testing Start: 03-09-2024 End: 03-09-2024 ambulatory Shelly Hernandez SECURITY INSTALLER.POTATO INSPECTOR Work Phone: Reproductive Endocrinology Infertility Comment on above: Reproductive mgmt, 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); Special screening examination for infectious diseases; Encounter for other genetic testing of female for procreative management Start: 03-09-2024 End: 03-09-2024 Telemedicine consultation with patient Shelly Hernandez SECURITY INSTALLER.POTATO INSPECTOR Work Phone: Reproductive Endocrinology Infertility Start: 02-29-2024 End: 02-29-2024 ambulatory SHELLY HERNANDEZ [facility] Start: 02-28-2024 End: 02-28-2024 ambulatory IGNACIO GUY [facility] Start: 02-28-2024 End: 02-28-2024 Patient encounter procedure Ignacio Guy MD Work Phone: Reproductive Endocrinology Infertility Comment on above: Encounter for male f actor 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 (Primary Dx) Start: 02-27-2024 End: 02-27-2024 ambulatory Amanda Ford APRN Work Phone: [facility] Work Phone: Start: 02-27-2024 End: 02-27-2024 Patient encounter procedure Amanda Ford APRN Work Phone: [facility] Work Phone: Start: 02-20-2024 Non-patient / Non-visit [facility] Work Phone: Start: 02-20-2024 End: 02-20-2024 Patient encounter procedure Les Juan DO Work Phone: [facility] Start: 02-20-2024 End: 02-20-2024 Periodic preventive med est patient 18-39 yrs Les Juan DO Work Phone: [facility] Comment on above: Well woman exam with routine gynecological exam Start: 02-20-2024 End: 02-20-2024 ambulatory LES JUAN Not Available Start: 02-20-2024 End: 02-20-2024 Bamboo flowsheet Les Juan DO Work Phone: [facility] Start: 02-20-2024 End: 02-28-2024 Bamboo flowsheet Les Juan DO Work Phone: [facility] Start: 02-20-2024 End: 02-28-2024 Clinisync Result Encounter Les Juan DO Work Phone: [facility] Unsolicited Start: 01-17-2024 End: 01-17-2024 ambulatory SECURITY INSTALLER Amanda Ford Work Phone: [facility] Work Phone: Start: 01-17-2024 End: 01-17-2024 Patient encounter procedure SECURITY INSTALLER Amanda Logan Work Phone: [facility] Work Phone: Start: 01-10-2024 Non-patient / Non-visit SECURITY INSTALLER Amanda Logan Work Phone: [facility] Work Phone: Start: 12-20-2023 End: 12-20-2023 ambulatory SECURITY INSTALLER Amanda Logan Work Phone: [facility] Work Phone: Start: 12-20-2023 End: 12-20-2023 Patient encounter procedure SECURITY INSTALLERTanja MittalAmanda Logan Work Phone: [facility] [place] [facility] Work Phone: Start: 12-09-2023 ambulatory Romeo Santana [facility] Start: 12-07-2023 Non-patient / Non-visit SECURITY INSTALLER Amanda Logan Work Phone: [facility] Work Phone: Start: 12-07-2023 End: 12-07-2023 Admission to same day surgery center SECURITY INSTALLERTanja MittalAmandahina Ford Work Phone: [facility] [place] Start: 12-07-2023 End: 12-07-2023 ambulatory SECURITY INSTALLERTanja Ford Work Phone: [facility] Work Phone: Start: 12-01-2023 End: 12-01-2023 ambulatory MELY Ford Work Phone: [facility] Work Phone: Start: 12-01-2023 End: 12-01-2023 Patient encounter procedure SECURITY INSTALLERTanja Patel Jovanir Work Phone: [facility] Work Phone: Start: 11-28-2023 End: 11-28-2023 Patient encounter procedure SECURITY INSTALLERTanja Patel Rosarioacher Work Phone: [facility] Work Phone: Start: 11-28-2023 End: 11-28-2023 ambulatory SECURITY INSTALLERTanja Patel Rosarioangelr Work Phone: [facility] Work Phone: Start: 11-28-2023 End: 11-28-2023 ambulatory LES MARTINEZ Not Available Start: 11-02-2023 End: 11-02-2023 Emergency department patient visit Amanda Ford Facility:[facility] Start: 11-01-2023 End: 11-01-2023 ambulatory SECURITY INSTALLERTanja Shethsarahangeldeirdre Work Phone: [facility] Work Phone: Start: 11-01-2023 End: 11-01-2023 Patient encounter procedure SECURITY INSTALLERTanja Hahnr Work Phone: [facility] Physician [facility] [place] [facility] Work Phone: Start: 10-26-2023 End: 10-26-2023 ambulatory SECURITY INSTALLERTanja Patel Merylstefanyr Work Phone: [facility] Work Phone: Start: 10-26-2023 End: 10-26-2023 Patient encounter procedure SECURITY INSTALLERTanja Patel Merylstefanyr Work Phone: [facility] Work Phone: Start: 10-13-2023 End: 10-13-2023 ambulatory [facility] Work Phone: Start: 10-13-2023 End: 10-13-2023 Patient encounter procedure [facility] Work Phone: Start: 09-15-2023 Non-patient / Non-visit [facility] Work Phone: Start: 06-08-2023 End: 06-08-2023 ambulatory [facility] Work Phone: Start: 06-08-2023 End: 06-08-2023 Patient encounter procedure [facility] Work Phone: Start: 05-17-2023 End: 05-17-2023 ambulatory Amanda Fodr Other [employer] Other Start: 05-17-2023 Office outpatient visit 15 minutes Romeo Santana [facility] Start: 05-17-2023 Telephone encounter Amanda Janet her [facility] Start: 05-17-2023 End: 05-17-2023 Patient encounter procedure [facility]- Start: 04-28-2023 End: 04-28-2023 ambulatory Amanda Ford Other [employer] Other Start: 04-28-2023 Telephone encounter Amanda Janet her [facility] Start: 04-22-2023 End: 04-22-2023 ambulatory Amanda Ford Other [employer] Other Start: 04-22-2023 Telephone encounter Amanda Janet her [facility] Start: 04-19-2023 End: 04-19-2023 ambulatory Amanda Ford Other [employer] Other Start: 04-19-2023 Telephone encounter Amanda Janet her [facility] [address] Start: 04-14-2023 End: 04-14-2023 ambulatory Amanda Ford Other [employer] Other Start: 04-14-2023 Telephone encounter Amanda Gonzales her [facility] Start: 03-17-2023 End: 03-17-2023 ambulatory Romeo Esther Other [employer] Other Start: 03-17-2023 Telephone encounter Romeo Esther [facility] Start: 02-07-2023 End: 02-07-2023 ambulatory Amanda Jovanir Other [employer] Other Start: 02-07-2023 Office outpatient visit 15 minutes Petr Lay [facility] [place] Start: 02-07-2023 Telephone encounter Amanda Shethsarahsari her [facility] Start: 01-27-2023 End: 01-27-2023 ambulatory Amanda Logan Other [employer] Other Start: 01-27-2023 Telephone encounter Amanda Shethsarahsari her [facility] [place] Start: 01-19-2023 End: 01-19-2023 ambulatory Amanda Rosarioacher Other [employer] Other Start: 01-19-2023 Telephone encounter Amanda Shethsarahsari her [facility] Start: 01-13-2023 End: 01-13-2023 ambulatory Amanda Merylrbacher Other [employer] Other Start: 01-13-2023 Telephone encounter Amanda Gonzales her [facility] Start: 01-10-2023 End: 01-10-2023 ambulatory Amanda Merylrbacher Other [employer] Other Start: 01-10-2023 Telephone encounter Amanda Gonzales her [facility] Start: 01-06-2023 End: 01-06-2023 ambulatory Amanda Logan Other [employer] Other Start: 01-06-2023 Telephone encounter Amanda Gonzales her [facility] Start: 12-27-2022 End: 12-27-2022 ambulatory Petr Lay Other [employer] Other Start: 12-27-2022 Office outpatient visit 15 minutes Petr Lay [facility] [place] Start: 11-10-2022 End: 11-10-2022 ambulatory Amanda Logan Other [employer] Other Start: 11-10-2022 Telephone encounter Amanda Shethsarahsari her [facility] [place] Start: 10-21-2022 End: 10-21-2022 ambulatory Amanda Logan Other [employer] Other Start: 10-21-2022 Telephone encounter Amanda Shethfelecia her [facility] [place] Start: 10-11-2022 End: 10-11-2022 ambulatory Petr Lay Other [employer] Other Start: 10-11-2022 Office consultation new/estab patient 40 min Petr Lay [facility] [place] Start: 09-30-2022 End: 09-30-2022 ambulatory Amanda Logan Other [employer] Other Start: 09-30-2022 Office outpatient visit 15 minutes Amanda Ford [facility] [place] Start: 08-25-2022 End: 08-25-2022 ambulatory Amanda Ponceacher Other [employer] Other Start: 08-25-2022 Office outpatient visit 15 minutes Amanda Ford [facility] Start: 08-20-2022 End: 08-20-2022 ambulatory Amanda Logan Other [employer] Other Start: 08-20-2022 Office outpatient visit 15 minutes Amanda Logan [facility] Start: 07-19-2022 End: 07-19-2022 ambulatory Amanda Logan Other [employer] Other Start: 07-19-2022 Telephone encounter Amanda Shethfelecia her [facility] Start: 07-08-2022 End: 07-08-2022 ambulatory Amanda Logan Other [employer] Other Start: 07-08-2022 Telephone encounter Amanda Shethfelecia her [facility] Start: 06-23-2022 End: 06-23-2022 ambulatory SECURITY INSTALLER Amanda Logan Work Phone: [facility] Work Phone: Start: 06-23-2022 End: 06-23-2022 Patient encounter procedure SECURITY INSTALLER Amanda Logan Work Phone: [facility] [place] Work Phone: Start: 06-17-2022 End: 06-17-2022 ambulatory Amanda Logan Other [employer] Other Start: 06-17-2022 Telephone encounter Amanda Janet her [employer] Start: 06-16-2022 End: 06-16-2022 ambulatory SECURITY INSTALLERTanja Patel Logan Work Phone: [facility] Work Phone: Start: 06-16-2022 End: 06-16-2022 Patient encounter procedure SECURITY INSTALLER Amanda Rohrbacher Work Phone: [facility] [place] Work Phone: Start: 06-10-2022 End: 06-11-2022 Evaluation and management of inpatient MD Robin Appiah Work Phone: [facility] Work Phone: Start: 06-10-2022 observation encounter MD Estrada Appiah Work Phone: [facility] Work Phone: Start: 06-09-2022 End: 06-09-2022 ambulatory MD Robin Appiah Work Phone: [facility] Work Phone: Start: 06-09-2022 End: 06-09-2022 Patient encounter procedure MD Robin Appiah Work Phone: [facility] [place] Work Phone: Start: 04-26-2022 End: 04-26-2022 ambulatory Amanda Logan Other [facility] [employer] Other Start: 04-26-2022 Telephone encounter Amanda Shethfelecia her [facility] Start: 04-23-2022 End: 04-23-2022 ambulatory Amanda Ford Other [facility] [employer] Other Start: 04-23-2022 Telephone encounter Amanda Shethfelecia her [facility] Start: 04-21-2022 End: 04-21-2022 Departed Referred MD Robin Appiah Work Phone: [facility] [place] Work Phone: Start: 04-21-2022 End: 04-21-2022 ambulatory MD Robin Appiah Work Phone: [facility] Work Phone: Start: 04-21-2022 Office outpatient visit 15 minutes Amanda Logan [facility] [place] Start: 04-20-2022 End: 04-20-2022 ambulatory Amanda Logan Other [employer] Other Start: 04-20-2022 Telephone encounter Amanda Gonzales her [facility] [place] Start: 04-13-2022 End: 04-13-2022 ambulatory Amanda Logan Other [employer] Other Start: 04-13-2022 Telephone encounter Amanda Shethsarahsari her [facility] Start: 04-10-2022 End: 04-10-2022 Emergency department patient visit MD Robin Appiah Work Phone: [facility] Work Phone: Start: 04-08-2022 End: 04-08-2022 Emergency department patient visit MD Robin Appiah Work Phone: [facility] Work Phone: Start: 03-30-2022 End: 03-30-2022 ambulatory Amanda Logan Other [employer] Other Start: 03-30-2022 Telephone encounter Amanda Janet her [facility] [place] Start: 03-23-2022 End: 03-23-2022 Patient encounter procedure MD Robin Appiah Work Phone: [facility] [place] Start: 03-23-2022 End: 03-23-2022 ambulatory Amanda Logan Other [employer] Other Start: 03-23-2022 Office outpatient visit 15 minutes Amanda Logan [facility] [place] Start: 03-17-2022 End: 03-17-2022 ambulatory Amanda Ford Other [employer] Other Start: 03-17-2022 Telephone encounter Amanda Gonzales her [facility] Start: 02-08-2022 End: 02-08-2022 ambulatory Amanda Logan Other [employer] Other Start: 02-08-2022 Office outpatient visit 25 minutes Amanda Logan [facility] Start: 09-01-2021 End: 09-01-2021 Patient encounter procedure Samir Thompson [facility] Start: 08-25-2021 End: 08-25-2021 Patient encounter procedure Samir Thompson [facility] Start: 08-06-2021 End: 08-06-2021 Patient encounter procedure Samir Thompson [facility] Start: 07-24-2021 End: 07-24-2021 Patient encounter procedure Samir Thompson [facility] Start: 07-23-2021 End: 07-23-2021 ambulatory Amanda Logan Other [employer] Other Start: 07-23-2021 Telephone encounter Amanda Gonzales her [facility] Start: 07-16-2021 End: 07-16-2021 ambulatory Amanda Logan Other [employer] Other Start: 07-16-2021 Office outpatient ne w 30 minutes Amanda Logan [facility] Start: 03-30-2021 End: 03-30-2021 Emergency department patient visit ROBIN APPIAH [facility] Start: 05-06-2020 End: 05-08-2020 ambulatory RASHARD Gilmore [facility] Start: 05-06-2020 End: 05-08-2020 Subsequent hospital visit by physician Rashard Olivera Work Phone: [facility] Comment on above: Post-op pain (Primar y Dx) Start: 05-02-2020 End: 05-03-2020 Patient encounter procedure MACKENZIE BRITO [facility] Start: 05-02-2020 End: 05-02-2020 Subsequent hospital visit by physician Michael Hendricks Screening Schedule MICHAEL Covid Screening Comment on above: Pre-op testing (Prim cj Dx) Start: 04-22-2020 End: 04-25-2020 ambulatory [facility] Start: 04-22-2020 End: 04-27-2020 ambulatory RASHARD Gilmore [facility] Start: 04-22-2020 End: 04-24-2020 Subsequent hospital visit by physician Lam [facility] Comment on above: Arrived Start: 04-22-2020 End: 04-26-2020 Subsequent hospital visit by physician Maritta [facility] 2 [facility] Pre-Admit Testing Procedures Date Procedure Procedure Detail Performing Clinician Start: 10-22-2024 Urnls dip stick/tabl et rgnt non-auto w/o micrscp Les Juan DO Work Phone: Start: 10-18-2024 UNLISTED LAB TEST Not I n System Ref Prov Start: 10-18-2024 Determination of kendrick wth of fungi Amanda Ford SECURITY INSTALLER Work Phone: Start: 10-18-2024 Trichomonas vaginali s detection Amanda Ford APRN Work Phone: Start: 10-18-2024 Diagnostic ultrasoun d of gravid uterus Amanda Ford APRN Work Phone: Start: 10-16-2024 UNLISTED LAB TEST Not I n System Ref Prov Start: 10-10-2024 BOX TEST Les Monsivais mario DO Work Phone: Start: 09-26-2024 Antibody rubella Not In System Ref Prov Start: 09-26-2024 Antibody screen Marylin Garcia MD Work Phone: Start: 09-26-2024 Hemoglobin glycosyla terry a1c Scanning Provider External Start: 09-26-2024 HIV 1&2 AB/AG SCREEN (P24 AG) Not In System Ref Prov Start: 09-26-2024 Iaad ia hepatitis b surface antigen Not In System Ref Prov Start: 09-26-2024 SYPHILIS TOTAL(UNKNO WN SYPHILIS STATUS) Not In System Ref Prov Start: 09-26-2024 TYPE AND SCREEN Not In System Ref Prov Start: 09-21-2024 ULTRASOUND OFFICE Not I n System Ref Prov Start: 09-20-2024 Urnls dip stick/tabl et rgnt non-auto w/o micrscp Les Juan DO Work Phone: Start: 09-03-2024 Us preg uterus after 1st trimest 04/18 gestation Shelly Hernandez SECURITY INSTALLER.POTATO INSPECTOR Work Phone: Start: 08-28-2024 Us preg uterus after 1st trimest 04/18 gestation Shelly Hernandez SECURITY INSTALLER.POTATO INSPECTOR Work Phone: Start: 07-04-2024 Us pelvic nonobstetr ic real-time image complete Ignacio Guy MD Work Phone: Start: 04-02-2024 Antibody screen SHELLY HERNANDEZ Comment on above: Order Comment: Speci men Type: BLOOD SPECIMEN Ordering Facility: [facility] Address: [address] [place] [id number] Performed By: #### T SPN #### [facility] CLIA [id number] [id number] [place] [address] [place] Start: 02-20-2024 IGP,APTIMA HPV,AGE GDLN Leschip Martinez DO Work Phone: Start: 02-20-2024 Microscopic observat ion [Identifier] in Cervix by Cyto stain Saúl Enriquez PhD Work Phone: Start: 12-07-2023 OR Shoulder Scope RCR/Biceps Tendon (Right) SECURITY INSTALLER Amanda Logan Work Phone: Start: 06-10-2022 Computed tomography of abdomen and pelvis with contrast MD Robin Appiah Work Phone: Start: 06-10-2022 Screening for occult blood in feces MD Robin Appiah Work Phone: Start: 04-21-2022 Urine culture MD Robin Appiah Work Phone: Start: 04-10-2022 Urine culture MD Robin Appiah Work Phone: Start: 03-23-2022 Plain X-ray of right shoulder MD Robin Appiah Work Phone: Start: 05-08-2020 Basic metabolic pane l calcium total Rei Montez Work Phone: Start: 05-08-2020 Blood count complete auto&auto difrntl wbc Mukesh Agustin Montez Work Phone: Start: 05-07-2020 Radex esophagus Rashard Olivera Work Phone: Start: 05-07-2020 Basic metabolic pane l calcium total Rashard Olivera Work Phone: Start: 05-07-2020 Blood count complete automated Rashard Olivera Work Phone: Start: 05-06-2020 Basic metabolic pane l calcium total Rashard Olivera Work Phone: Start: 05-06-2020 Blood count complete automated Rashard Olivera Work Phone: Start: 05-06-2020 End: 05-06-2020 GASTRECTOMY SLEEVE LAPAROSCOPIC ROBOTIC Rashard Olivera Work Phone: Start: 05-06-2020 Urine test visual color cmprsn meths Rashard Olivera Work Phone: Start: 05-06-2020 Level iv surg pathol ogy gross&microscopic exam Rashard Olivera Work Phone: Start: 04-22-2020 Radiologic exam ches t 2 views Rashard Olivera Work Phone: Start: 04-22-2020 Assay of nicotine Rashad Gilmore [employer] Work Phone: Start: 04-22-2020 Basic metabolic pane l calcium total Rashard Olivera Work Phone: Start: 04-22-2020 Blood count complete automated Rashard Olivera Work Phone: Start: 04-22-2020 Prothrombin time Narendra y Deirdre Olivera Work Phone: Start: 04-22-2020 Thromboplastin time partial plasma/whole blood Rashard Pérezton Work Phone: Start: 04-22-2020 Ecg routine ecg w/le ast 12 lds i&r only Rashard Olivera Work Phone: Start: 04-22-2020 EKG REPORT Hpf Scanni ng Cholecystectomy Samir Gurinder robertson Comment on above: 2015 Plan of Treatment Date Care Activity Detail Author Start: 2070 RSV Vaccine (1 - 1-dose 75+ series) RSV Vaccine (1 - 1-dose 75+ series) [facility] Start: 2045 Zoster Vaccines (1 of 2) Zoster Vaccines (1 of 2) [facility] Start: 12-25-2032 DTaP/Tdap/Td Vaccines (2 - Td or Tdap) DTaP/Tdap/Td Vaccines (2 - Td or Tdap) [facility] Start: 12-25-2032 Urine microalbumin profile DTaP,Tdap,Td Vaccine (2 - Td or Tdap) [facility] Start: 02-19-2027 Screening for malignant neoplasm of cervix [facility] Start: 08-21-2025 End: 08-21-2025 Patient encounter procedure 08/21/2025 9:30 AM EDT Office Visit [facility] [address] [place] [address] Darleen Sinclair MD [address], [address] [place] [address] [facility] Start: 02-20-2025 End: 02-20-2025 Patient encounter procedure 02/20/2025 1:00 PM EST Office Visit [facility] [address] [place] [phone] Les Martinez, DO [address] [place] [address] [facility] Start: 12-17-2024 Influenza vaccination [facility] Start: 12-05-2024 End: 12-05-2024 Patient encounter procedure [facility] Start: 11-20-2024 End: 11-20-2024 Patient encounter procedure 11/20/2024 8:40 AM EDT Routine [facility] [address] [place] [phone] Les Martinez, DO [address] [place] [address] [facility] Start: 10-22-2024 End: 10-22-2024 Patient encounter procedure 10/22/2024 11:20 AM EDT Routine [facility] [address] [place] [phone] Les Martinez, DO [address] [place] [address] [facility] Start: 10-18-2024 Bacteria identified in Urine by Culture Urine Culture [facility] Start: 10-18-2024 Genital Culture Genital Culture [facility] Start: 10-18-2024 Urine culture [facility] Start: 10-18-2024 [facility] Start: 09-20-2024 End: 09-20-2025 ABO/Rh ABO/Rh Lab Routine Missed menses , unspecified gestational age Expected: 09/20/2024 (Approximate), Expires: 09/20/2025 [facility] Comment on above: Expected: 09/20/2024 (Approximate), Expi res: 09/20/2025 Start: 09-20-2024 End: 09-20-2025 Blood type and Indirect antibody screen panel - Blood Type and screen Lab Routine Missed menses , unspecified gestational age Expected: 09/20/2024 (Approximate), Expires: 09/20/2025 [facility] Work Phone: Comment on above: Expected: 09/20/2024 (Approximate), Expi res: 09/20/2025 Start: 09-20-2024 End: 09-20-2025 Drugs of abuse panel - Urine by Screen method Rapid drug screen, urine Lab Routine , unspecified gestational age Encounter for supervision of normal first in first trimester Expected: 09/20/2024 (Approximate), Expires: 09/20/2025 [facility] Comment on above: Expected: 09/20/2024 (Approximate), Expi res: 09/20/2025 Start: 09-13-2024 End: 09-13-2024 ambulatory 09/13/2024 2:30 PM EDT Initial [facility] [address] [address] [facility] Start: 09-13-2024 End: 09-13-2024 Professional / ancillary services management 09/13/2024 2:00 PM EDT Ancillary Procedure [facility] [address] [place] [address] [facility] Start: 09-03-2024 End: 09-03-2024 Nursing evaluation of patient and report Rep[facility] Endocrinology Infertility Comment on above: scan ob scan, non ivf Start: 08-22-2024 End: 08-22-2025 25-hydroxyvitamin D3 [Mass/volume] in Serum or Plasma Vitamin D 25 hydroxy Lab Routine H/O gastric bypass Vitamin D deficiency Expected: 08/22/2024 (Approximate), Expires: 08/22/2025 [facility] Comment on above: Expected: 08/22/2024 (Approximate), Expi res: 08/22/2025 Start: 08-22-2024 End: 08-22-2025 Cobalamin (Vitamin B12) [Mass/volume] in Serum or Plasma Vitamin B12 Lab Routine H/O gastric bypass Expected: 08/22/2024 (Approximate), Expires: 08/22/2025 [facility] Comment on above: Expected: 08/22/2024 (Approximate), Expi res: 08/22/2025 Start: 08-22-2024 End: 08-22-2025 Thiamine (aka Vitamin B1) Thiamine (aka Vitamin B1) Lab Routine H/O gastric bypass Expected: 08/22/2024 (Approximate), Expires: 08/22/2025 [facility] Comment on above: Expected: 08/22/2024 (Approximate), Expi res: 08/22/2025 Start: 08-22-2024 End: 08-22-2025 Thyrotropin [Units/volume] in Serum or Plasma TSH Lab Routine Abnormal thyroid function test Expected: 08/22/2024 (Approximate), Expires: 08/22/2025 [facility] Comment on above: Expected: 08/22/2024 (Approximate), Expi res: 08/22/2025 Start: 08-22-2024 End: 08-22-2025 Thyroxine (T4) free [Mass/volume] in Serum or Plasma T4, free Lab Routine Abnormal thyroid function test Expected: 08/22/2024 (Approximate), Expires: 08/22/2025 [facility] Comment on above: Expected: 08/22/2024 (Approximate), Expi res: 08/22/2025 Start: 08-22-2024 End: 08-22-2025 Triiodothyronine (T3) Free [Mass/volume] in Serum or Plasma T3, free Lab Routine Abnormal thyroid function test Expected: 08/22/2024 (Approximate), Expires: 08/22/2025 [facility] Work Phone: Comment on above: Expected: 08/22/2024 (Approximate), Expi res: 08/22/2025 Start: 08-22-2024 End: 08-22-2024 Patient encounter procedure 08/22/2024 10:00 AM EDT Office Visit [facility] [address] [place] [address] Darleen Sinclair MD Kristie Edwards, [address] [place] [address] [facility] Comment on above: Arrived Start: 08-20-2024 End: 08-20-2025 OBSTETRIC ULTRASOUND WHI OBSTETRIC ULTRASOUND WHI Anc Imaging Routine 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) Expected: 08/20/2024, Expires: 08/20/2025 [facility] Work Phone: Comment on above: Expected: 08/20/2024, Expires: Start: 08-20-2024 End: 08-20-2024 ambulatory 08/20/2024 8:30 AM EDT [facility] Reproductive Endocrinology Infertility [address] [place] [address] Shelly Hernandez, SECURITY INSTALLER.POTATO INSPECTOR [address] [facility] [address] [place] [address] preg appt Reproductive Endocrinology Infertility Comment on above: preg appt Start: 07-07-2024 End: 07-07-2024 Patient encounter procedure [facility] Comment on above: donor thaw iui d Start: 05-09-2024 End: 05-09-2024 ambulatory 05/09/2024 8:00 AM EST [facility] Reproductive Endocrinology Infertility [address] [place] [address] Shelly Hernandez, SECURITY INSTALLER.POTATO INSPECTOR [address] 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 Expected: 03/11/2024, Expires: 06/10/2024 [facility] Comment on above: Expected: 03/11/2024, Expires: Start: 03-11-2024 End: 06-10-2024 CARRIER SCREEN, EXPANDED CARRIER SCREEN, EXPANDED Lab Routine Encounter for other genetic testing of female for procreative management Expected: 03/11/2024, Expires: 06/10/2024 [facility] Comment on above: Expected: 03/11/2024, Expires: Start: 03-11-2024 End: 06-10-2024 Chlamydia trachomatis+Neisseria gonorrhoeae DNA [Presence] in Unspecified specimen by AC with probe detection GONORRHEA/CHLAMYDIA NAAT Lab Routine Special screening examination for infectious diseases Expected: 03/11/2024, Expires: 06/10/2024 [facility] Comment on above: Expected: 03/11/2024, Expires: Start: 03-11-2024 End: 06-10-2024 Cytomegalovirus IgG Ab [Units/volume] in Serum or Plasma CMV IGG ANTIBODY BL Lab Routine Special screening examination for infectious diseases Expected: 03/11/2024, Expires: 06/10/2024 [facility] Comment on above: Expected: 03/11/2024, Expires: Start: 03-11-2024 End: 06-10-2024 Cytomegalovirus IgM Ab [Units/volume] in Serum or Plasma CMV IGM AB Lab Routine Special screening examination for infectious diseases Expected: 03/11/2024, Expires: 06/10/2024 [facility] Comment on above: Expected: 03/11/2024, Expires: Start: 03-11-2024 End: 06-10-2024 Hemoglobin A1c in Blood HEMOGLOBIN A1C Lab Routine Reproductive mgmt, 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 Expected: 03/11/2024, Expires: 06/10/2024 [facility] Comment on above: Expected: 03/11/2024, Expires: Start: 03-11-2024 End: 06-10-2024 Hepatitis B virus core Ab [Presence] in Serum HEPATITIS B CORE ANTIBODY TOTAL Lab Routine Special screening examination for infectious diseases Expected: 03/11/2024, Expires: 06/10/2024 [facility] Comment on above: Expected: 03/11/2024, Expires: Start: 03-11-2024 End: 06-10-2024 Hepatitis B virus surface Ag [Presence] in Serum HEPATITIS B SURFACE ANTIGEN Lab Routine Special screening examination for infectious diseases Expected: 03/11/2024, Expires: 06/10/2024 [facility] Comment on above: Expected: 03/11/2024, Expires: Start: 03-11-2024 End: 06-10-2024 Hepatitis C virus Ab [Presence] in Serum HEPATITIS C ANTIBODY IA WITH CONFIRMATION Lab Routine Special screening examination for infectious diseases Expected: 03/11/2024, Expires: 06/10/2024 [facility] Comment on above: Expected: 03/11/2024, Expires: Start: 03-11-2024 End: 06-10-2024 HIV 1+2 Ab [Presence] in Serum or Plasma by Immunoassay HIV 1/2 COMBO WITH REFLEX TO DIFFERENTIATION Lab Routine Special screening examination for infectious diseases Expected: 03/11/2024, Expires: 06/10/2024 [facility] Comment on above: Expected: 03/11/2024, Expires: Start: 03-11-2024 End: 06-10-2024 RUBELLA IGG ANTIBODY RUBELLA IGG ANTIBODY Lab Routine Special screening examination for infectious diseases Expected: 03/11/2024, Expires: 06/10/2024 [facility] Comment on above: Expected: 03/11/2024, Expires: Start: 03-11-2024 End: 06-10-2024 SYPHILIS TREPONEMAL W/REFLEX SYPHILIS TREPONEMAL W/REFLEX Lab Routine Special screening examination for infectious diseases Expected: 03/11/2024, Expires: 06/10/2024 [facility] Comment on above: Expected: 03/11/2024, Expires: Start: 03-11-2024 End: 06-10-2024 TYPE + SCREEN TYPE + SCREEN Blood Bank Routine Reproductive mgmt, 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 Expected: 03/11/2024, Expires: 06/10/2024 [facility] Comment on above: Expected: 03/11/2024, Expires: 5 Start: 03-11-2024 End: 06-10-2024 VARICELLA ZOSTER IGG VARICELLA ZOSTER IGG Lab Routine Special screening examination for infectious diseases Expected: 03/11/2024, Expires: 06/10/2024 [facility] Work Phone: Comment on above: Expected: 03/11/2024, Expires: 5 Start: 03-09-2024 End: 03-09-2024 ambulatory 03/09/2024 10:00 AM EST [facility] Reproductive Endocrinology Infertility [address] [place], [place] [id number] Shelly Hernandez APRN.POTATO INSPECTOR [address] [place] [address] Donor sperm teach [facility]ertility Comment on above: Donor sperm teach Start: 02-20-2024 End: 02-20-2024 Patient encounter procedure 02/20/2024 2:50 PM EST Office Visit [facility] [address] [address] Les Martinez, [address] [place], [place] [address] Arrived [facility] Comment on above: Arrived Start: 12-18-2023 Covid-19 Vaccine ( season) Covid-19 Vaccine ( season) [facility] Start: 12-18-2023 Covid-19 Vaccine ( season) Covid-19 Vaccine ( season) [facility] Start: 12-18-2023 Influenza vaccination Influenza Vaccine (#1) [facility] Start: 12-07-2023 End: 12-07-2023 [facility] Start: 06-15-2022 [facility] Start: 06-14-2022 [facility] Start: 06-13-2022 [facility] Start: 06-12-2022 [facility] Start: 06-11-2022 End: 06-11-2022 [facility] Start: 06-10-2022 Hospital admission [facility] Start: 06-10-2022 [facility] Start: 06-10-2022 [facility] Start: 06-09-2022 [facility] Start: 04-21-2022 Bacteria identified in Urine by Culture Urine Culture [facility] Start: 04-10-2022 Bacteria identified in Urine by Culture Urine Culture [facility] Start: 05-16-2020 End: 05-16-2020 Office Visit 05/16/2020 Office Visit Bariatrics Rashard Olivera, [address] [facility] [address] [place] [address] [facility] Invasive Bariatric Surg Start: 05-06-2020 End: 05-06-2020 Hospital Encounter [facility] Comment on above: XI LAPAROSCOPIC ROBOTIC GASTRIC BYPASS R OUX-EN-Y, LIVER BIOPSY, EGD- GI UNIT SCHEDULED. Start: 05-02-2020 End: 05-01-2021 COVID-19 COVID-19 Lab Routine Pre-op testing Expected: 05/02/2020, Expires: 05/01/2021 [place] Comment on above: Expected: 05/02/2020, Expires: Start: 05-02-2020 End: 05-02-2020 Office Visit [facility] Invasive Bariatric Surg Start: 01-11-2020 TSH Qn TSH testing [place], [place] Start: 12-18-2019 Influenza vaccination Flu vaccine (#1) [place] Start: 2016 Screening for malignant neoplasm of cervix [facility] Start: 2014 DTaP,Tdap and Td Vaccines (1 - Tdap) DTaP,Tdap and Td Vaccines (1 - Tdap) [employer] [facility] Start: 2014 DTaP/Tdap/Td vaccine (1 - Tdap) DTaP/Tdap/Td vaccine (1 - Tdap) [place] Start: 2014 Hepatitis B Vaccine (1 of 3 - 19+ 3-dose series) Hepatitis B Vaccine (1 of 3 - 19+ 3-dose series) [facility] Start: 2014 Hepatitis B Vaccines (1 of 3 - 19+ 3-dose series) Hepatitis B Vaccines (1 of 3 - 19+ 3-dose series) [facility] Start: 2014 Urine microalbumin profile DTaP,Tdap,Td Vaccine (1 - Tdap) [facility] Start: 2013 Adult BMI Screening Adult BMI Screening [facility] Start: 2013 Anxiety Screening Anxiety Screening [facility] Start: 2013 Depression Screening Depression Screening [facility] Start: 2013 Hepatitis C screening Hepatitis C Screening [facility] Start: 2013 HIV screening HIV Screening [facility] Start: 2010 HIV screening HIV screen [place], [place] Start: 2008 Varicella vaccination Varicella Vaccines (1 of 2 - 13+ 2-dose series) [facility] Start: 2007 Depression Screening Depression Screening [facility] Start: 2007 Tobacco Screening Tobacco Screening [facility] Start: 2006 HPV vaccine (1 - 2-dose series) HPV vaccine (1 - 2-dose series) [place] Start: 1996 MMR Vaccines (1 of 1 - Standard series) MMR Vaccines (1 of 1 - Standard series) [facility] Start: 1996 Varicella vaccine (1 of 2 - 2-dose childhood series) Varicella vaccine (1 of 2 - 2-dose childhood series) [place] Start: 1995 Hepatitis C screening Hepatitis C screen [place] Start: 1995 HIV screening HIV Screening [facility] Start: 1995 Lipid panel Lipid Panel [facility] Start: 1995 Yearly Adult Physical Yearly Adult Physical [facility] aPTT in Platelet poo r plasma by Coagulation assay [facility] Bacteria identified in Genital specimen by Aerobe culture [facility] Bacteria identified in Urine by Culture Urine culture Microbiology Routine Missed menses Ordered: 09/20/2024 [facility] Comment on above: Ordered: 09/20/2024 Calcitriol [Mass/vol ume] in Serum or Plasma [facility] CBC W Auto Different ial panel - Blood CBC and differential Lab Routine Missed menses , unspecified gestational age Ordered: 09/20/2024 [facility] Comment on above: Ordered: 09/20/2024 Continuous pulse oximetry Pulse oximetry, continuous Respiratory Care Routine Every 4hr until discontinued starting 05/06/2020 [facility] [place] Comment on above: Every 4hr until discontinued starting CT Abdomen and Pelvi s WO and W contrast IV [facility] Cytology Cervical or vaginal smear or scraping study Pap Smear Pathology and Cytology Routine Well woman exam with routine gynecological exam Ordered: 02/20/2024 [facility] Work Phone: Comment on above: Ordered: 02/20/2024 Electromyography [facility] F5 gene mutations fo und [Identifier] in Blood or Tissue by Molecular genetics method Nominal [facility] Factor VIII: C assay [facility] Glucose measurement estimated from glycated hemoglobin [facility] Hemoglobin A1c/Hemoglobin.total in Blood [facility] Hemoglobin A1c/Hemoglobin.total in Blood Hemoglobin A1c Lab Routine Missed menses , unspecified gestational age Ordered: 09/20/2024 [facility] Comment on above: Ordered: 09/20/2024 Hepatitis B virus priest rface Ag [Presence] in Serum or Plasma by Immunoassay Hepatitis B surface antigen Lab Routine Missed menses , unspecified gestational age Ordered: 09/20/2024 [facility] Comment on above: Ordered: 09/20/2024 Hepatitis C virus Ab [Presence] in Serum or Plasma by Immunoassay Hepatitis C antibody Lab Routine Missed menses , unspecified gestational age Ordered: 09/20/2024 [facility] Comment on above: Ordered: 09/20/2024 HIV-1/HIV-2 antigen/antibody combination immunoassay HIV-1 and HIV-2 antibodies Lab Routine Missed menses , unspecified gestational age Ordered: 09/20/2024 [facility] Comment on above: Ordered: 09/20/2024 INR in Platelet poor plasma by Coagulation assay [facility] Mullerian inhibiting substance [Mass/volume] in Serum or Plasma [facility] Nebulizer therapy HHN Treatment Respiratory Care Routine TID until discontinued starting 05/06/2020 [facility] [place] Comment on above: TID until discontinued starting 05/06/19 21 Oxygen therapy [[facility]ini [facility] Data Set] Initiate Oxygen Therapy Protocol Respiratory Care Routine Daily until discontinued starting 05/06/2020 [facility] [place] Comment on above: Daily until discontinued starting 2020 Patient Education [facility] Work Phone: Patient referral [facility] Work Phone: Reagin Ab [Presence] in Serum by RPR RPR Lab Routine Missed menses , unspecified gestational age Ordered: 09/20/2024 [facility] Comment on above: Ordered: 09/20/2024 Rubella antibody, IgG Rubella an tibody, IgG Lab Routine Missed menses , unspecified gestational age Ordered: 09/20/2024 [facility] Comment on above: Ordered: 09/20/2024 Spirometry panel Incentive marti metry Respiratory Care Routine Every 2hr while awake until discontinued starting 05/06/2020 [facility] [place] Comment on above: Every 2hr while awake until discontinued starting 05/06/2020 Surgical Pathology Surgical Path ology Lab Routine Release Upon Ordering for 1 Occurrences starting 05/06/2020 [facility] [place] Comment on above: Release Upon Ordering for 1 Occurrences starting 05/06/2020 von Willebrand facto r (vWf) Ag [Units/volume] in Platelet poor plasma [facility] von Willebrand facto r (vWf) multimers in Platelet poor plasma by Immunoblot [facility] von Willebrand facto r (vWf) ristocetin cofactor actual/normal in Platelet poor plasma by Platelet aggregation [facility] Immunizations Immunization Date Immunization Notes Care Provider Fa cility 12-25-2022 tetanus toxoid, reduced diphtheria toxoid, and acellular pertussis vaccine, adsorbed Darleen Sinclair MD Work Phone: [facility] 08-19-2020 COVID-19 mRNA-1273 (Moderna) MELY Ford Work Phone: [facility] 07-22-2020 COVID-19 mRNA-1273 (Moderna) MELY Ford Work Phone: [facility] Payers Date Payer Category Payer Self-pay [id number] 2022 Medicaid [id number] 2022 Medicaid [id number] 2020 Unknown [id number] 2015 Unknown [id number] .[id number] 1995 Unknown [id number] 2.16.840.1.225655.3.579.2.176 1995 Unknown [id number] 2.16.840.1.304756.3.579.2.175 1995 Unknown [id number] 2.16.840.1.960579.3.579.2.175 1995 Unknown [id number] 2.16.840.1.537766.3.579.2.175 1995 Unknown [id number] 2.16.840.1.811000.3.579.2.175 1995 Unknown [id number] 2.16.840.1.182558.3.579.2.124 4 1995 Unknown [id number] 2.16.840.1.354219.3.579.2.718 1995 Unknown [id number] 2.16.840.1.815524.3.579.2.718 1995 Unknown [id number] 2.16.840.1.697513.3.579.2.718 1995 Unknown [id number] 2.16.840.1.313694.3.579.2.718 1995 Unknown [id number] 2.16.840.1.587995.3.579.2.718 1995 Unknown [id number] 2.16.840.1.348988.3.579.2.718 1995 Unknown [id number] 2.16.840.1.378548.3.579.2.718 1995 Unknown [id number] 2.16840.1.118796.3.579.2.125 9 1995 Unknown [id number] 2.16.840.1.141708.3.579.2.125 9 1995 Unknown [id number] 2.16840.1.231013.3.579.2.125 9 1995 Unknown [id number] 2.16840.1.919300.3.579.2.125 9 1995 Unknown [id number] 2.840.1.953939.3.579.2.125 9 1995 Unknown [id number] 2.16.840.1.127761.3.579.2.125 9 Private Health Insurance [facility] [id number] Unknown [id number] 2.840.1.923001.19 Unknown [id number] Unknown [id number] 2.16840.1.925544.3.579.2.531 Unknown [id number] 2.16840.1.370450.3.579.2.531 Social History Date Type Detail Facility Start: 04-22-2020 End: 06-08-2023 Tobacco smoking status NHIS Never smoker [place] Start: 04-22-2020 End: 10-26-2024 Tobacco use and exposure Never used [place] Start: 04-22-2020 End: 05-02-2020 Alcohol intake Current non-drinker of alcohol (finding) [facility] Start: 1995 Sex Assigned At Not on file [facility] Exposure to SARS-CoV-2 (event) [facility] sure [facility] Tobacco smoking status Never [facility] Start: 05-20-2020 End: 11-28-2023 Sex Assigned At Female Taggled Other Start: 1995 Sex Assigned At Female [facility] Start: 06-10-2022 Tobacco smoking status TXIS Current some day smoker [facility] Start: 11-28-2023 End: 12-07-2023 Tobacco smoking status NHIS Smoker (finding) [facility] Start: 11-28-2023 End: 10-26-2024 Tobacco smoking status TXIS Smokes tobacco daily [facility] History of tobacco use Cigarette Smoker [facility] Start: 05-20-2020 End: 11-28-2023 Cigarettes smoked current (pack per day) - Reported 0.5 [facility] Start: 11-28-2023 End: 10-26-2024 Alcoholic beverage intake Ex-drinker (finding) [facility] Start: 01-10-2023 Alcohol Comment caffeine: 1-2 cups per day tea [facility] Start: 01-19-2023 Gender identity Identifies as female gender (finding) [facility] Start: 05-20-2020 End: 02-27-2024 Sex Female (finding) [facility] Tobacco smoking status TXIS Tobacco smoking consumption unknown [facility] Start: 08-01-2023 [facility] Start: 10-18-2024 Tobacco smoking status TXIS Ex-smoker (finding) [facility] NEGATED: Highlighted row [facility] Medical Equipment Procedure Code Equipment Code Equipment Origin al Text Equipment Identifier Dates Functional endoscopic sinus surgery (FESS) with sinuplasty BUTTON NASAL SEPTAL 3CM FDA Start: 10-15-2019 Functional endoscopic sinus surgery (FESS) with sinuplasty BUTTON NASAL SEPTAL 3CM FDA Start: 10-15-2019 Functional endoscopic sinus surgery (FESS) with sinuplasty BUTTON NASAL SEPTAL 3CM FDA Start: 10-15-2019 Functional endoscopic sinus surgery (FESS) with sinuplasty BUTTON NASAL SEPTAL 3CM FDA Start: 10-15-2019 Functional endoscopic sinus surgery (FESS) with sinuplasty BUTTON NASAL SEPTAL 3CM FDA Start: 10-15-2019 Functional endoscopic sinus surgery (FESS) with sinuplasty BUTTON NASAL SEPTAL 3CM FDA Start: 10-15-2019 Functional endoscopic sinus surgery (FESS) with sinuplasty BUTTON NASAL SEPTAL 3CM FDA Start: 10-15-2019 Functional endoscopic sinus surgery (FESS) with sinuplasty BUTTON NASAL SEPTAL 3CM FDA Start: 10-15-2019 Functional endoscopic sinus surgery (FESS) with sinuplasty BUTTON NASAL SEPTAL 3CM FDA Start: 10-15-2019 Functional endoscopic sinus surgery (FESS) with sinuplasty BUTTON NASAL SEPTAL 3CM FDA Start: 10-15-2019 Functional endoscopic sinus surgery (FESS) with sinuplasty BUTTON NASAL SEPTAL 3CM FDA Start: 10-15-2019 Functional endoscopic sinus surgery (FESS) with sinuplasty BUTTON NASAL SEPTAL 3CM FDA Start: 10-15-2019 Functional endoscopic sinus surgery (FESS) with sinuplasty BUTTON NASAL SEPTAL 3CM FDA Start: 10-15-2019 Functional endoscopic sinus surgery (FESS) with sinuplasty BUTTON NASAL SEPTAL 3CM FDA Start: 10-15-2019 Functional endoscopic sinus surgery (FESS) with sinuplasty BUTTON NASAL SEPTAL 3CM FDA Start: 10-15-2019 Functional endoscopic sinus surgery (FESS) with sinuplasty BUTTON NASAL SEPTAL 3CM FDA Start: 10-15-2019 Functional endoscopic sinus surgery (FESS) with sinuplasty BUTTON NASAL SEPTAL 3CM FDA Start: 10-15-2019 Functional endoscopic sinus surgery (FESS) with sinuplasty BUTTON NASAL SEPTAL 3CM FDA Start: 10-15-2019 Functional endoscopic sinus surgery (FESS) with sinuplasty BUTTON NASAL SEPTAL 3CM FDA Start: 10-15-2019 Functional endoscopic sinus surgery (FESS) with sinuplasty BUTTON NASAL SEPTAL 3CM FDA Start: 10-15-2019 Tendon/ligament bone anchor, non-bioabsorbable ()[id number] FDA Start: 12-07-2023 Tendon/ligament bone anchor, non-bioabsorbable ()[id number] FDA Start: 12-07-2023 Tendon/ligament bone anchor, non-bioabsorbable ()[id number] FDA Start: 12-07-2023 Tendon/ligament bone anchor, non-bioabsorbable ()[id number] FDA Start: 12-07-2023 Goals Date Patient Goal Desired Activity /State Personal health goal Functional Status Date Assessment Result Facility 06-11-2022 Functional status Patient at Baseline [facility] Work Phone: 06-10-2022 Functional status Patient at Baseline [facility] Work Phone: Mental Status Date Assessment Result Facility 06-11-2022 Cognitive function Cognitive Sta tus Patient at Baseline [facility] Work Phone: 06-10-2022 Cognitive function Cognitive Sta tus Patient at Baseline [facility] Work Phone: Clinical Notes 07-16-2021 to 10-22-2024 Mima Duenas NP - 10/22/2024 11:20 AM EDAnna Asif MA - 09/20/2024 2:30 PM Charisse Etienne APRN.JARROD - 09/03/2024 5:39 PM [id number] mtz MD - 08/30/2024 4:36 PM EDT Note Date & Type Note Facility 10-22-2024 History of Presen t illness Narrative Reason for Appointment: Patient ID: Jaz Sanders is a 29 y.o. female who presents for Routine Visit Patient presents today for Return OB appointment. MEDICATIONS Current Outpatient Medications Medication Instructions docusate sodium (Colace) 100 MG capsule Every 24 hours iron polysaccharides (ProFe) 391.3 (180 Fe) MG capsule TAKE 1 CAPSULE BY MOUTH TWICE DAILY(MORNING AND BEFORE BED) lansoprazole (PREVACID) 30 mg, Daily levothyroxine (SYNTHROID, LEVOXYL) 50 mcg, Oral, Daily before breakfast QUEtiapine (SEROQUEL) 25 mg, Nightly sertraline (ZOLOFT) 25 mg, Every 24 hours ALLERGIES Allergies Allergen Reactions Nsaids Unknown Patient had gastric bypass surgery in April 2020. PROBLEMS Active Ambulatory Problems Diagnosis Date Noted Anovulation 11/28/2023 Resolved Ambulatory Problems Diagnosis Date Noted No Resolved Ambulatory Problems Past Medical History: Diagnosis Date Abnormal results of thyroid function studies ADD (attention deficit disorder) Anemia Bariatric surgery status Bipolar disorder (HCC) Dysmenorrhea Female infertility Functional enuresis GERD (gastroesophageal reflux disease) Pee thyroiditis History of transfusion Hypothyroidism Irregular menses Nontoxic goiter, unspecified Ovarian cyst Polycystic ovary syndrome Smoker Thyroid disease Urinary incontinence Urinary tract infection Vitamin D deficiency HISTORY PAST MEDICAL HISTORY SOCIAL HISTORY Past Medical History: Diagnosis Date Abnormal results of thyroid function studies ADD (attention deficit disorder) Anemia hospitalization history (06/10/22) Bariatric surgery status Bipolar disorder (HCC) Dysmenorrhea Female infertility Functional enuresis GERD (gastroesophageal reflux disease) Pee thyroiditis History of transfusion Hypothyroidism Irregular menses Nontoxic goiter, unspecified Ovarian cyst Polycystic ovary syndrome Smoker Thyroid disease Urinary incontinence Urinary tract infection Vitamin D deficiency Social History Tobacco Use Smoking status: Every Day Current packs/day: 0.50 Average packs/day: 0.5 packs/day for 3.0 years (1.5 ttl pk-yrs) Types: Cigarettes Smokeless tobacco: Never Substance Use Topics Alcohol use: Not Currently Comment: caffeine: 1-2 cups per day tea Drug use: Never FAMILY HISTORY Family History Problem Relation Name Age of Onset Skin cancer Mother Julieta velarde Obesity Mother Julieta velarde Thyroid disease Mother Julieta velarde Diabetes Father Delbert velarde Thyroid disease Father Delbert velarde Hypertension Father Delbert velarde Diabetes Paternal Grandfather Ayaan Easton SURGICAL HISTORY Past Surgical History: Procedure Laterality Date ABDOMINAL SURGERY May 06 2020 BARIATRIC SURGERY 05/06/2020 Gastric Sleeve bypass CHOLECYSTECTOMY 11/2015 NASAL ENDOSCOPY Bilateral 10/15/2019 with septal button REVIEW OF SYSTEMS Review of Systems: Review of Systems Constitutional: Negative. HENT: Negative. Eyes: Negative. Respiratory: Negative. Cardiovascular: Negative. Gastrointestinal: Negative. Genitourinary: Negative. Musculoskeletal: Negative. Skin: Negative. Neurological: Negative. All other systems reviewed and are negative. Hematological: Negative. Endocrine: Negative. Allergic/Immunologic: Negative. OBJECTIVE Objective: Physical Exam Constitutional: Appearance: Normal appearance. She is well-developed. Cardiovascular: Rate and Rhythm: Normal rate and regular rhythm. Pulmonary: Effort: Pulmonary effort is normal. Breath sounds: Normal breath sounds. Abdominal: General: Bowel sounds are normal. There is no distension. Palpations: Abdomen is soft. Tenderness: There is no abdominal tenderness. There is no guarding or rebound. Musculoskeletal: General: No swelling. Normal range of motion. Right lower leg: No edema. Left lower leg: No edema. Neurological: Mental Status: She is alert and oriented to person, place, and time. Skin: General: Skin is warm and dry. Psychiatric: Mood and Affect: Mood normal. Behavior: Behavior normal. Vitals and nursing note reviewed. Exam conducted with a circulation librarian present. Vitals: Estimated body mass index is 31.24 kg/m as calculated from the following: Height as of 08/22/24: 5' 11 . Weight as of this encounter: 224 lb. BP: 110/62 No LMP recorded. Patient is . ASSESSMENT & PLAN ICD-10-CM 1. 13 weeks gestation of ([facility]) Z3A.13 POCT urinalysis dipstick manually resulted 2. Second trimester ([facility]) Z34.92 POCT urinalysis dipstick manually resulted 3. Thyroid disease E07.9 4. H/O gastric sleeve Z90.3 5. H/O iron deficiency anemia Z86.2 6. resulting from in vitro fertilization in first trimester ([facility]) O09.811 Return OB: Patient presents today for a routine obstetrics appointment. Patient is currently 13w6d . Patient states she is doing well but has complaints of being tired due to current . Patient has verbalizes frequent movement. labor precautions was discussed/given and patient was instructed to perform kick counts three times a day. Orders Placed This Encounter Procedures POCT urinalysis dipstick manually resulted Follow Up: Patient is to return to office in 4 week for routine OB appointment. History of gastric sleeve will make referral to [facility]. Documented by Mima Duenas NP on behalf of: Les Martinez DO documented in this encounter [facility] 10-18-2024 Radiology Diagnostic study note [facility] [place] [address] Ultrasound Report Signed Patient: Jaz Sanders MR#: [id number] : 1995 Acct:[id number] Age/Sex: 29 / F ADM Date: 5 Loc: ER Room: Type: [facility] ER Attending Dr: Ordering Provider: Kassidy Arriaza DO Date of Service: 10/18/24 US/US OB <= 14 weeks fetus: OB/Uterine Contractions Copies to: Kassidy Arriaza DO~ OB ultrasound. Reason for exam:1 episode of vaginal spotting this morning. Comparison:None Technique: Transabdominal imaging of the gravid uterus was obtained. Findings: Single live intrauterine 13 weeks 1 day by CRL, DARWIN 04/24/2025. heart rate 160 bpm. Placenta is posterior in location without focal abnormality. No free fluid is seen. Ovaries not visualized. US/US OB <= 14 weeks fetus Impression: Single live intrauterine 13 weeks 1 day by CRL, DARWIN 04/24/2025. No acute abnormality is seen. Impression dictated by: Sravan Dickinson Jr., D.ORenae 10/18/2024 2:21 PM Dictation Location: [place] [address] Tech: Natalie Haji Transcribed By: MAITE 10/18/24 1421 Dictated By: Sravan Dickinson Jr, DO 10/18/24 1419 Signed By: 10/18/24 1421 [facility] 09-20-2024 History of Presen t illness Narrative Reason for Appointment: Patient ID: Jaz Sanders is a 29 y.o. female who presents for Amenorrhea Patient presents today for a Nurse OB Intake appointment. Patient is 9w2d with a Estimated Date of Delivery: 04/23/25 OB History Para Term AB Living 1 0 0 0 0 0 SAB IAB Ectopic Multiple Live Births 0 0 0 0 0 # Outcome Date GA Lbr George/2nd Weight Sex Type Anes PTL Lv 1 Current Obstetric Comments Periods: Irregular Last pap smear: 11/15/20 NILM STD: none Menarche: Age onset of maternal menarche: 12 Menstruation: [noted 06/18/22] Time since last period: 1-2 months Time between periods: 21 to 32 days apart Lasts: 4-5 days Pad/tampon use/day: 1-3 regular tampons Character: with moderate pain Current Medications: has a current medication list which includes the following prescription(s): bupropion xl, buspirone, cyclobenzaprine, docusate sodium, ferrous sulfate, profe, lamictal, lansoprazole, levothyroxine, naltrexone, quetiapine, and strattera. Medical History: Active Ambulatory Problems Diagnosis Date Noted Anovulation 11/28/2023 Resolved Ambulatory Problems Diagnosis Date Noted No Resolved Ambulatory Problems Past Medical History: Diagnosis Date Abnormal results of thyroid function studies ADD (attention deficit disorder) Anemia Bariatric surgery status Bipolar disorder Dysmenorrhea Female infertility Functional enuresis GERD (gastroesophageal reflux disease) Pee thyroiditis (CMS/HCC) History of transfusion Hypothyroidism (CMS/HCC) Irregular menses Nontoxic goiter, unspecified (CMS/HCC) Ovarian cyst Polycystic ovary syndrome Smoker Thyroid disease (CMS/HCC) Urinary incontinence Urinary tract infection Vitamin D deficiency Family History Problem Relation Name Age of Onset Skin cancer Mother Julieta velarde Obesity Mother Julieta velarde Thyroid disease Mother Julieta velarde Diabetes Father Delbert velarde Thyroid disease Father Delbert velarde Hypertension Father Delbert velarde Diabetes Paternal Grandfather Ayaan Easton Social History Tobacco Use Smoking status: Every Day Current packs/day: 0.50 Average packs/day: 0.5 packs/day for 3.0 years (1.5 ttl pk-yrs) Types: Cigarettes Smokeless tobacco: Never Substance Use Topics Alcohol use: Not Currently Comment: caffeine: 1-2 cups per day tea Drug use: Never Past Surgical History: Procedure Laterality Date ABDOMINAL SURGERY May 06 2020 BARIATRIC SURGERY 05/06/2020 Gastric Sleeve bypass CHOLECYSTECTOMY 11/2015 NASAL ENDOSCOPY Bilateral 10/15/2019 with septal button Allergies Allergen Reactions Nsaids Unknown Patient had gastric bypass surgery in April 2020. Vitals: Estimated body mass index is 31.24 kg/m as calculated from the following: Height as of 08/22/24: 5' 11 . Weight as of this encounter: 224 lb. BP: 122/74 No LMP recorded. Patient is . Assessment/Plan Diagnoses and all orders for this visit: Amenorrhea 9 weeks gestation of Missed menses - Type and screen; Future - ABO/Rh; Future - CBC and differential - Hemoglobin A1c - RPR - Rubella antibody, IgG - Hepatitis B surface antigen - Hepatitis C antibody - HIV-1 and HIV-2 antibodies - Urine culture - POCT , urine manually resulted - POCT urinalysis dipstick manually resulted , unspecified gestational age - Type and screen; Future - ABO/Rh; Future - CBC and differential - Hemoglobin A1c - RPR - Rubella antibody, IgG - Hepatitis B surface antigen - Hepatitis C antibody - HIV-1 and HIV-2 antibodies - Rapid drug screen, urine; Future Encounter for supervision of normal first in first trimester - Rapid drug screen, urine; Future Nurse Note: Patient declined [place] at this time. Patient is an IVF from [facility]. OB Intake: Patient presents today for first OB visit. Patients history has been reviewed in great detail including any potential risks. Patient signed consent forms and patient desires testing in both trimesters. Patient currently has no complaints and has been advised to drink 6-8 glasses of water a day, eat no raw or undercooked meat, and stay away from [facility]. Patient has also been advised to not change litter boxes and eat 6 small meals a day. Patient has been consulted regarding the do's and don'ts of . Patient was given labs and all questions and concerns were answered. Follow Up: Patient is to return in 4 weeks for routine OB appointment. Follow Up: Patient is to have labs drawn at directed and return to office for initial OB appointment with provider. Patient may call office as needed with any concerns or questions. Nurse Visit Completed by: Marsha Asif MA documented in this encounter [facility] 09-05-2024 Note HNO ID: [id number] Author: SHELLY HERNANDEZ APRN.JARROD Service: ? Author Type: Nurse Practitioner Type: Procedures Filed: 09/05/2024 22:45 Note Text: WHI JAMEL IUI PROCEDURE NOTE Date: 07/31/2024 Primary Proceduralist: Shelly Hernandez APRN.POTATO INSPECTOR Consents and Labels Consent Signed: Informed Consent obtained and on the chart Labels Verified With Patient: Yes Indications: Jaz Sanders, is a 29 year old female here today for intrauterine insemination. IUI # 3. Cycle Day: Last menstrual period: 07/19/2024 [place] Protocol: UNIVERSAL PROTOCOL / SAFETY CHECKLIST Procedure to be Performed: IUI Sign In: A Moment of CARE was completed. Appropriate PPE (Personal Protective Equipment) worn by all providers involved with the procedure. Special equipment not required. Patient/Surrogate Stated/Verified: Patient name, Date of , Relevant allergies, and The intended procedure Time Out: Relevant labs, photos, and/or imaging studies are not applicable. Intended patient and procedure match the source document(s) (e.g. consent, HANDP, associated studies [imaging, pathology]) match the intended patient and procedure. Consent obtained and matches the intended procedure. Yes. Correct side/site is not applicable. Medications required for this procedure are not applicable. Fire risk assessed and is not applicable. Implants: are not applicable. Sign Out: Specimens not collected. All instruments, equipment, possible retained foreign bodies are accounted for. Yes. The post-procedure plan of care has been communicated to the patient or surrogate. IUI IUI Date: 07/31/24 Partner's Name: Sravan Sanders IUI Time: 3:24 PM EDT Partner's : 09/09/1997 IUI #: 3 Partner's Patient's LMP: 07/19/24 Pre-Procedure Diagnosis: Infertility Post-Procedure Diagnosis: Infertility Cycle Meds: Natural Cycle Catheter Type: Unisem catheter Tenaculum: No Catheter passed: Easy Complications: None Sperm Information: Source of Sperm: Donor Ejaculated: Yes Fresh/Frozen: Frozen TMC (total motile count of sperm after wash): 27.5 million Cycle reviewed, all questions answered. Pt instructed to take a test in 17 days if no menses and call with results. SIGNATURE: Shelly Hernandez APRN.CNP PATIENT NAME: Jaz Sanders DATE: September 05, 2024 TIME: 10:45 PM [facility] 09-03-2024 History of Presen t illness Narrative Jaz Sanders here today for a scan. This is her 2nd scan. History of ectopic: No History of SAB: No History of chemical - possible - not verified History of pelvic/abdominal surgeries: Yes - gall bladder and gastric sleeve LMP 07/19, natural cycle, date of LH surge: 07/30, IUI: 07/31 Latest Ref Rng 04/02/2024 ABO A Rh(D) Positive Antibody Screen Negative Type+Scr Expiration 04/05/2024 23:59 Varicella Zoster IgG, Qual Positive Positive Rubella IgG, Qual Positive Positive hCG levels: 08/13 - 63.6 08/15 - 160.6 08/17 - 362.7 Dating on 08/28 : Currently 6w0d based off of IUI date. By Ultrasound, measuring 5w6d FHR: 100 Dating for 09/03: LMP on: 07/19/2024 GA by LMP 6 [...] w + 6 d Assigned DARWIN: 04/23/2025 FHR: 114 Plan Move on to OB Charisse Weaver APRN.CNP September 03, 2024 5:39 PM documented in this encounter [facility] 09-03-2024 Note HNO ID: [id number] Author: CHARISSE WEAVER APRN.CNP Service: ? Author Type: Nurse Practitioner Type: Progress Notes Filed: 09/03/2024 17:42 Note Text: Jaz Sanders here today for a scan. This is her 2nd scan. History of ectopic: No History of SAB: No History of chemical - possible - not verified History of pelvic/abdominal surgeries: Yes - gall bladder and gastric sleeve LMP 3, natural cycle, date of LH surge: 07/30, IUI: 07/31 Latest Ref Rng 04/02/2024 ABO A Rh(D) Positive Antibody Screen Negative Type+Scr Expiration 04/05/2024 23:59 Varicella Zoster IgG, Qual Positive Positive Rubella IgG, Qual Positive Positive hCG levels: 08/13 - 63.6 08/15 - 160.6 / - 362.7 Dating on 08/28 : Currently 6w0d based off of IUI date. By Ultrasound, measuring 5w6d FHR: 100 Dating for 09/03: LMP on: 07/19/2024 GA by LMP 6 [...] w + 6 d Assigned DARWIN: 04/23/2025 FHR: 114 Plan Move on to OB Charisse Weaver APRN.POTATO INSPECTOR September 03, 2024 5:39 PM [facility] 08-30-2024 Note HNO ID: [id number] Author: MIKEY TORRES MD Service: ? Author Type: Physician Type: Progress Notes Filed: 08/30/2024 16:36 Note Text: Viable ratliff IUP Size equal Date. Plan: patient to follow up with her ob for care. Stacy Banuelos MD [facility] 08-30-2024 History of Presen t illness Narrative Viable ratliff IUP Size equal Date. Plan: patient to follow up with her ob for care. Stacy Banuelos MD Jaz Sanders is here today for an early scan due to pain. This is her 1st scan. History of ectopic: No History of SAB: No History of chemical - possible - not verified History of pelvic/abdominal surgeries: Yes - gall bladder and gastric sleeve LMP 07/19, natural cycle, date of LH surge: 07/30, IUI: 07/31 Latest Ref Rng 04/02/2024 ABO A Rh(D) Positive Antibody Screen Negative Type+Scr Expiration 04/05/2024 23:59 Varicella Zoster IgG, Qual Positive Positive Rubella IgG, Qual Positive Positive hCG levels: / - 63.6 4/30 - 160.6 5/2 - 362.7 Dating: Currently 6w0d based off of IUI date. By Ultrasound, measuring 5w6d FHR: 100 Plan: repeat scan next week as scheduled Shelly Hernandez APRN.CNP documented in this encounter [facility] 08-28-2024 Note HNO ID: [id number] Author: SHELLY HERNANDEZ APRN.CNP Service: ? Author Type: Nurse Practitioner Type: Progress Notes Filed: 08/30/2024 16:36 Note Text: Jaz Sanders is here today for an early scan due to pain. This is her 1st scan. History of ectopic: No History of SAB: No History of chemical - possible - not verified History of pelvic/abdominal surgeries: Yes - gall bladder and gastric sleeve LMP 07/19, natural cycle, date of LH surge: 07/30, IUI: 07/31 Latest Ref Rng 04/02/2024 ABO A Rh(D) Positive Antibody Screen Negative Type+Scr Expiration 04/05/2024 23:59 Varicella Zoster IgG, Qual Positive Positive Rubella IgG, Qual Positive Positive hCG levels: / - 63.6 4/30 - 160.6 5/2 - 362.7 Dating: Currently 6w0d based off of IUI date. By Ultrasound, measuring 5w6d FHR: 100 Plan: repeat scan next week as scheduled Shelly Hernandez APRN.CNP [facility] 08-24-2024 Telephone encounter Note spoke with Jaz, she is having weird discomfort, denies cramping or pain, but feels pressure she is able to perform daily tasks, denies one sided pain. denies bleeding Location: Midline low front, low back History of ectopic: No History of SAB: No History of chemical - possible - not verified History of pelvic/abdominal surgeries: Yes - gall bladder and gastric sleeve LMP 07/19, natural cycle, date of LH surge: 07/30, IUI: 07/31 Latest Ref Rng 04/02/2024 ABO A Rh(D) Positive Antibody Screen Negative Type+Scr Expiration 04/05/2024 23:59 Varicella Zoster IgG, Qual Positive Positive Rubella IgG, Qual Positive Positive hCG levels: 08/13 - 63.6 08/15 - 160.6 08/17 - 362.7 Plan: discussed pro's/con's of repeat hcg level versus ultrasound Ultrasound will allow us to assess the pelvis and make sure is appropriate for dates. Please schedule the patient for the following- Location: D Provider: nurse Visit type: scan Reason for visit/appointment notes: scan Date: 08/28 Time (requested): 1110 If slot is full, please schedule the closest open slot. Call to patient needed: no [facility] 08-24-2024 Miscellaneous Notes spoke with Jaz, she is having weird discomfort, denies cramping or pain, but feels pressure she is able to perform daily tasks, denies one sided pain. denies bleeding Location: Midline low front, low back History of ectopic: No History of SAB: No History of chemical - possible - not verified History of pelvic/abdominal surgeries: Yes - gall bladder and gastric sleeve LMP 07/19, natural cycle, date of LH surge: 07/30, IUI: 07/31 Latest Ref Rng 04/02/2024 ABO A Rh(D) Positive Antibody Screen Negative Type+Scr Expiration 04/05/2024 23:59 Varicella Zoster IgG, Qual Positive Positive Rubella IgG, Qual Positive Positive hCG levels: 08/13 - 63.6 08/15 - 160.6 08/17 - 362.7 Plan: discussed pro's/con's of repeat hcg level versus ultrasound Ultrasound will allow us to assess the pelvis and make sure is appropriate for dates. Please schedule the patient for the following- Location: [facility] Provider: nurse Visit type: scan Reason for visit/appointment notes: scan Date: 08/28 Time (requested): 1110 If slot is full, please schedule the closest open slot. Call to patient needed: no Name: Jaz Sanders called today. : 1995 (home) [phone] (cell) Reason for call: pt called today informing the nurse she has been experiencing pain of level 4 from 1-10. Pt has been experiencing pain for 2 day. 5 weeks today. The patients preferred pharmacy has been captured for this encounter? [facility] documented in this encounter [facility] 08-24-2024 Telephone encounter Note See 08/23/24 LIBBY Ward RN August 24, 2024 1:58 PM [facility] 08-24-2024 Miscellaneous Notes See 08/23/24 LIBBY Ward RN August 24, 2024 1:58 PM Pt would like a call back documented in this encounter [facility] 08-24-2024 Telephone encounter Note Pt would like a call back [facility] 08-23-2024 Telephone encounter Note Name: Jaz Sanders called today. : 1995 (home) [phone] (cell) Reason for call: pt called today informing the nurse she has been experiencing pain of level 4 from 1-10. Pt has been experiencing pain for 2 day. 5 weeks today. The patients preferred pharmacy has been captured for this encounter? [facility] 08-23-2024 Telephone encounter Note See 08/20 Distance health visit Marianna Ward RN August 23, 2024 8:53 AM [facility] 08-23-2024 Miscellaneous Notes See 08/20 Distance health visit Marianna Ward RN August 23, 2024 8:53 AM documented in this encounter [facility] 08-22-2024 History of Presen t illness Narrative Jaz Sanders is a 29 y.o. female Darleen Sinclair MD presents with chief complaint of Thyroid Problem and Follow-up (1.5 YRS ) HPI: History of Present Illness The patient is a 29-year-old female who presents for a follow-up visit. She was last seen in 03/2023. 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 There have been no changes in her medication since the last visit. She is also taking Wellbutrin, BuSpar, Lamictal, and Seroquel, and is under the care of a psychiatrist. Her overall health status is satisfactory, with no significant weight fluctuations. She reports no gastrointestinal symptoms related to her previous gastric bypass surgery and is compliant with her vitamin supplementation. She has requested an evaluation of her vitamin D levels, as she had a deficiency prior to her weight loss surgery, which has since improved. She is uncertain about the recent assessment of her B12 levels. PAST SURGICAL HISTORY: Gastric bypass Interim History: 03/2023 Follow-up visit 03/31/2023 for lab, in October/2022 within normal limits: TSH 4.42, free T3 3.2 (2-4.4), free T4 0.72. Repeated lab in January/2023: TSH 2.34, free T4 0.72 (0.76-1.46), but she is in treatment plan, [place], for fertility. HPI : 09/2022 New patient sent from Amanda Ford NP, for abnormal thyroid antibodies. TPO 180. Ultrasound done. She has 6.8 x 2.6 x 2.5 cm and right lobe 6.5 x 2.4 x 2.6; left lobe, no nodules. She used to be on high-dose thyroid medication before, had gastric bypass and she had it in 2020. She lost almost 250 pounds from maximum of 450 to 200, which is her current weight. SUBJECTIVE: MEDICATIONS: Current Outpatient Medications Medication Instructions buPROPion XL (WELLBUTRIN XL) 150 mg, Daily busPIRone (Buspar) 15 MG tablet 1 tablet, 3 times daily PRN cyclobenzaprine (FLEXERIL) 5 mg, 3 times daily PRN docusate sodium (Colace) 100 MG capsule Every 24 hours ferrous sulfate 325 (65 Fe) MG tablet Every 24 hours iron polysaccharides (ProFe) 391.3 (180 Fe) MG capsule TAKE 1 CAPSULE BY MOUTH TWICE DAILY(MORNING AND BEFORE BED) LaMICtal 200 MG tablet lansoprazole (PREVACID) 30 mg, Daily letrozole (Femara) 2.5 MG chemo tablet Daily levothyroxine (SYNTHROID, LEVOXYL) 50 mcg, Oral, Daily before breakfast naltrexone (DEPADE) 50 mg, 2 times daily (12/01) QUEtiapine (SEROQUEL) 25 mg, Nightly Strattera 40 MG capsule Every 24 hours Xanax 0.5 MG tablet As needed ALLERGIES: Allergies Allergen Reactions Nsaids Unknown Patient had gastric bypass surgery in April 2020. Past Medical History: Diagnosis Date Abnormal results of thyroid function studies ADD (attention deficit disorder) Anemia hospitalization history (06/10/22) Bariatric surgery status Bipolar disorder Dysmenorrhea Female infertility Functional enuresis GERD (gastroesophageal reflux disease) Pee thyroiditis (CMS/HCC) History of transfusion Hypothyroidism (CMS/HCC) Irregular menses Nontoxic goiter, unspecified (CMS/HCC) Ovarian cyst Polycystic ovary syndrome Smoker Thyroid disease (CMS/HCC) Urinary incontinence Urinary tract infection Vitamin D deficiency Past Surgical History: Procedure Laterality Date ABDOMINAL SURGERY May 06 2020 BARIATRIC SURGERY 05/06/2020 Gastric Sleeve bypass CHOLECYSTECTOMY 11/2015 NASAL ENDOSCOPY Bilateral 10/15/2019 with septal button REVIEW OF SYMPTOMS: 14 POINT OF SYSTEM REVIEWED AND NEGATIVE OBJECTIVE: Visit Vitals BP 124/56 Pulse 67 Resp 16 Ht 5' 11 Wt 215 lb SpO2 99% BMI 29.99 kg/m OB Status Having periods Smoking Status Every Day BSA 2.21 m Physical Exam Constitutional: Appearance: Normal appearance. She is normal weight. HENT: Head: Normocephalic and atraumatic. Right Ear: External ear normal. Nose: Nose normal. Mouth/Throat: Pharynx: Oropharynx is clear. Eyes: Extraocular Movements: Extraocular movements intact. Pupils: Pupils are equal, round, and reactive to light. Cardiovascular: Rate and Rhythm: Normal rate and regular rhythm. Pulmonary: Effort: Pulmonary effort is normal. Abdominal: General: Abdomen is flat. Palpations: Abdomen is soft. Musculoskeletal: General: Normal range of motion. Skin: General: Skin is warm. Neurological: General: No focal deficit present. Mental Status: She is alert. Psychiatric: Mood and Affect: Mood normal. Behavior: Behavior normal. ASSESSMENT AND PLAN: Assessment/Plan Diagnoses and all orders for this visit: Abnormal thyroid function test - T3, free; Future - T4, free; Future - TSH; Future H/O gastric bypass - Vitamin D 25 hydroxy; Future - Vitamin B12; Future - Thiamine (aka Vitamin B1); Future 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CMS/HCC) - levothyroxine (Synthroid, Levoxyl) 50 MCG tablet; Take 1 tablet (50 mcg) by mouth in the morning. Take before meals. Vitamin D deficiency - Vitamin D 25 hydroxy; Future Assessment & Plan 1. Hypothyroidism: - Currently taking levothyroxine 50 mcg daily. - Thyroid function tests will be conducted to ensure optimal management. - Advised to contact the office if no communication is received within a week following the blood work. - Prescription for levothyroxine will be sent but should not be filled until lab results are reviewed for potential dose adjustment. 2. Vitamin D deficiency: - History of vitamin D deficiency, improved since weight loss surgery. - Vitamin D levels will be checked. - High-dose vitamin D supplementation may be considered depending on results. - Will be contacted with the results. 3. Vitamin B12 levels: - Vitamin B12 levels will be checked as part of routine monitoring. - Will be contacted with the results. - No recent checks reported by the patient. - Routine monitoring every 3 to 6 months recommended. 4. Medication Management: - Currently taking Wellbutrin, BuSpar, Lamictal, and Seroquel. - Followed by a psychiatrist. - No changes to psychiatric medications discussed during this visit. - Patient reports feeling good overall with no significant GI symptoms post-gastric bypass. Follow up in about 1 year (around 08/22/2025). documented in this encounter [facility] 08-20-2024 Note HNO ID: [id number] Author: SHELLY HERNANDEZ APRN.POTATO INSPECTOR Service: ? Author Type: Nurse Practitioner Type: Progress Notes Filed: 08/20/2024 10:19 Note Text: REPRODUCTIVE ENDOCRINOLOGY AND INFERTILITY New SERVICE DATE: 08/20/2024 SERVICE TIME: 8:33 AM NAME: Jaz Sanders VIRTUAL VISIT PROGRESS NOTE This is a virtual visit. It required patient-provider interaction for the medical decision making as documented below. Patient name and birthday verified: Yes Location of patient: home Persons Present: patient I have communicated my name and active licensure. The patient's identity and physical location were verified at the time of this visit. Either the patient or their legal housing management representative has been informed of the risks and benefits of -- and alternatives to -- treatment through a remote evaluation and consents to proceed with the evaluation remotely. Reason for visit: new , next steps History of ectopic: No History of SAB: No History of chemical - possible - not verified History of pelvic/abdominal surgeries: Yes - gall bladder and gastric sleeve LMP 07/19, natural cycle, date of LH surge: 07/30, IUI: 07/31 Latest Ref Rng 04/02/2024 ABO A Rh(D) Positive Antibody Screen Negative Type+Scr Expiration 04/05/2024 23:59 Varicella Zoster IgG, Qual Positive Positive Rubella IgG, Qual Positive Positive hCG levels: 08/13 - 63.6 08/15 - 160.6 08/17 - 362.7 Dating: Currently 4w6d based off of IUI date. Symptoms: Pain: slight discomfort, not cramping or pain breast tenderness/changes sleep difficulties Bleeding: no Nausea/Vomiting: queasy, no vomiting Current Medications: reviewed Taking PNV: yes Reviewed history, intake and most recent plan from primary JAMEL provider. Encounter Diagnosis ICD-10-CM 1. resulting from assisted reproductive technology in first trimester ([facility]) O09.811 OBSTETRIC ULTRASOUND [facility] Plan: further labwork needed: no scan scheduled: 09/03 medications to discontinue: patient to discuss status with her providers Schedule with OB: 09/13 Shelly Hernandez APRN.POTATO INSPECTOR August 20, 2024 8:33 AM Please schedule the patient for the following- Location: [place] Provider: nurse Visit type: Reason for visit/appointment notes: scan Date: 09/03 Time (requested): 1040 If slot is full, please schedule the closest open slot. Call to patient needed: no I spent a total of 30 minutes on the date of the service which included preparing to see the patient, [id number] patient care, completing clinical documentation, obtaining and/or reviewing separately obtained history, counseling and educating the patient/family/caregiver, ordering medications, tests, or procedures, independently interpreting results (not separately reported), communicating results to the patient/family/caregiver, and care coordination (not separately reported). To patients reading this note: Please be advised the primary purpose of this note is for me to communicate with myself and other members of your medical team. Standard sentence structure is not always used. Medical terminology and medical abbreviations may be used. There may be grammatical and typographical errors missed in proofreading. [facility] 08-20-2024 History of Presen t illness Narrative Images from the original note were not included. REPRODUCTIVE ENDOCRINOLOGY AND INFERTILITY New SERVICE DATE: 08/20/2024 SERVICE TIME: 8:33 AM NAME: Jaz Sanders VIRTUAL VISIT PROGRESS NOTE This is a virtual visit. It required patient-provider interaction for the medical decision making as documented below. Patient name and birthday verified: Yes Location of patient: home Persons Present: patient I have communicated my name and active licensure. The patient's identity and physical location were verified at the time of this visit. Either the patient or their legal housing management representative has been informed of the risks and benefits of -- and alternatives to -- treatment through a remote evaluation and consents to proceed with the evaluation remotely. Reason for visit: new , next steps History of ectopic: No History of SAB: No History of chemical - possible - not verified History of pelvic/abdominal surgeries: Yes - gall bladder and gastric sleeve LMP 07/19, natural cycle, date of LH surge: 07/30, IUI: 07/31 Latest Ref Rng 04/02/2024 ABO A Rh(D) Positive Antibody Screen Negative Type+Scr Expiration 04/05/2024 23:59 Varicella Zoster IgG, Qual Positive Positive Rubella IgG, Qual Positive Positive hCG levels: 08/13 - 63.6 08/15 - 160.6 5/ - 362.7 Dating: Currently 4w6d based off of IUI date. Symptoms: Pain: slight discomfort, not cramping or pain breast tenderness/changes sleep difficulties Bleeding: no Nausea/Vomiting: queasy, no vomiting Current Medications: reviewed Taking PNV: yes Reviewed history, intake and most recent plan from primary JAMEL provider. Encounter Diagnosis ICD-10-CM 1. 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) O09.811 OBSTETRIC ULTRASOUND [facility] Plan: further labwork needed: no scan scheduled: 09/03 medications to discontinue: patient to discuss status with her providers Schedule with OB: 09/13 Shelly Hernandez APRN.POTATO INSPECTOR August 20, 2024 8:33 AM Please schedule the patient for the following- Location: [place] Provider: nurse Visit type: Reason for visit/appointment notes: scan Date: 09/03 Time (requested): 1040 If slot is full, please schedule the closest open slot. Call to patient needed: no I spent a total of 30 minutes on the date of the service which included preparing to see the patient, [id number] patient care, completing clinical documentation, obtaining and/or reviewing separately obtained history, counseling and educating the patient/family/caregiver, ordering medications, tests, or procedures, independently interpreting results (not separately reported), communicating results to the patient/family/caregiver, and care coordination (not separately reported). To patients reading this note: Please be advised the primary purpose of this note is for me to communicate with myself and other members of your medical team. Standard sentence structure is not always used. Medical terminology and medical abbreviations may be used. There may be grammatical and typographical errors missed in proofreading. documented in this encounter [facility] 08-16-2024 Telephone encounter Note Called patient back to phone number listed in [employer]-no answer. Lm for patient to look out for Mychart message. Daniel Hanna APRN.CNP August 16, 2024 5:15 PM [facility] 08-16-2024 Miscellaneous Notes Called patient back to phone number listed in [facility]-no answer. Lm for patient to look out for Mychart message. Daniel Hanna APRN.CNP August 16, 2024 5:15 PM Name: Jaz Sanders called today. : 1995 (home) [phone] (cell) Reason for call: pt called that she got positive test, she has been having having cramping since last night , it happens every hours for couple minutes. The patients preferred pharmacy has been captured for this encounter? yes Angella Morillo [facility] documented in this encounter [facility] 08-16-2024 Telephone encounter Note Name: Jaz Sanders called today. : 1995 (home) [phone] (cell) Reason for call: pt called that she got positive test, she has been having having cramping since last night , it happens every hours for couple minutes. The patients preferred pharmacy has been captured for this encounter? yes Angella Moralezdad [facility] 08-15-2024 Telephone encounter Note Pt is preg and wants to know if she can take benadryl due to her having hives [facility] 08-15-2024 Miscellaneous Notes Pt is preg and wants to know if she can take benadryl due to her having hives documented in this encounter [facility] 07-31-2024 Note HNO ID: [id number] Author: DOMINGUEZ BARRY, ? Service: ? Author Type: Candle Wrapper Type: Progress Notes Filed: 09/05/2024 22:45 Note Text: IUI Cryobio Donor # [id number] Pre: frozen washed specimen Post: 82 M/ml, 67% Insem # 27.5 million [facility] 07-31-2024 Note HNO ID: [id number] Author: DOMINGUEZ BARRY, ? Service: ? Author Type: Candle Wrapper Type: Progress Notes Filed: 07/31/2024 15:26 Note Text: Thaw for IUI. Dominguez Barry [facility] 07-31-2024 History of Presen t illness Narrative Thaw for IUI. Dominguez Barry documented in this encounter [facility] 07-31-2024 Note HNO ID: [id number] Author: DOMINGUEZ BARRY, ? Service: ? Author Type: Candle Wrapper Type: Progress Notes Filed: 09/05/2024 22:45 Note Text: IUI specimen released to provider Dominguez Barry July 31, 2024 3:24 PM [facility] 07-31-2024 Note HNO ID: [id number] Author: MUSTAPHA TELLO MA Service: ? Author Type: Women'S Health Care Nurse Practitioner Type: Progress Notes Filed: 07/31/2024 15:12 Note Text: Patient verified by full name and date of . Jaz Sanders is here today for an IUI. LMP: 07/19/2024 Natural cycle IUI Timed With: Ovulation Predictor Kit , Date: 07/30/2024 Segmental Paver Installer offered: Patient declines Mustapha Tello MA July 31, 2024 3:12 PM [facility] 07-30-2024 Telephone encounter Note patient's OPK today was dark but not positive Plan: test again tomorrow. if darker, schedule IUI on Tuesday if clinical orthoptist than today, schedule IUI the same day Shelly Hernandez APRN.CNP July 30, 2024 6:00 PM [facility] 07-30-2024 Miscellaneous Notes patient's OPK today was dark but not positive Plan: test again tomorrow. if darker, schedule IUI on Tuesday if clinical orthoptist than today, schedule IUI the same day Shelly Hernandez APRN.CNP July 30, 2024 6:00 PM N- ivf Pt has questions regarding IUI documented in this encounter [facility] 07-30-2024 Telephone encounter Note N- ivf Pt has questions regarding IUI [facility] 07-08-2024 Note HNO ID: [id number] Author: NICHELLE GONZALEZ, ? Service: ? Author Type: Candle Wrapper Type: Progress Notes Filed: 07/19/2024 07:50 Note Text: IUI Cryobio #[id number] Washed frozen specimen Post: 31 m/ml, 77% Insem#: 10.8 million [facility] 07-08-2024 History of Presen t illness Narrative IUI Cryobio #[id number] Washed frozen specimen Post: 31 m/ml, 77% Insem#: 10.8 million IUI specimen released to provider Nichelle Gonzalez July 07, 2024 10:10 AM documented in this encounter [facility] 07-07-2024 Note HNO ID: [id number] Author: NICHELLE GONZALEZ, ? Service: ? Author Type: Candle Wrapper Type: Progress Notes Filed: 07/19/2024 07:50 Note Text: IUI specimen released to provider Nichelle Gonzalez July 07, 2024 10:10 AM [facility] 07-07-2024 Note HNO ID: [id number] Author: MIKEY TORRES MD Service: ? Author Type: Physician Type: Procedures Filed: 07/19/2024 07:48 Note Text: WHI JAMEL IUI PROCEDURE NOTE Date: 07/07/2024 Primary Proceduralist: Nakia Duran MD Consents and Labels Consent Signed: Informed Consent obtained and on the chart Labels Verified With Patient: Yes Indications: Jaz Sanders, is a 29 year old No obstetric history on file. female here today for intrauterine insemination. IUI # 2. Cycle Day: 14 Last menstrual period: 06/24/2024 [place] Protocol: UNIVERSAL PROTOCOL / SAFETY CHECKLIST Procedure to be Performed: IUI Sign In: A Moment of CARE was completed. Appropriate PPE (Personal Protective Equipment) worn by all providers involved with the procedure. Special equipment not required. Patient/Surrogate Stated/Verified: Patient name, Date of , Relevant allergies, and The intended procedure Time Out: Relevant labs, photos, and/or imaging studies have been reviewed. Intended patient and procedure match the source document(s) (e.g. consent, HANDP, associated studies [imaging, pathology]) match the intended patient and procedure. Consent obtained and matches the intended procedure. Yes. Correct side/site has been marked and visible. Medications required for this procedure are verified. Fire risk assessed and is not applicable. Implants: are not applicable. Sign Out: Specimens not collected. All instruments, equipment, possible retained foreign bodies are accounted for. Yes. The post-procedure plan of care has been communicated to the patient or surrogate`. IUI IUI Date: 07/07/24 Partner's Name: Sravan Sanders IUI Time: 10:15 AM EDT Partner's : 09/09/1997 IUI #: 2 Partner's Patient's LMP: 06/24/24 Cycle Day: 14 Pre-Procedure Diagnosis: Infertility Post-Procedure Diagnosis: Infertility Cycle Meds: Natural Cycle Trigger: LH Surge Date Catheter Type: Curve catheter Tenaculum: No Catheter passed: Mildly Difficult For difficult catheter pass, add additional details: Cervical Polyp, was able to perform IUI without US guidance. Complications: None Sperm Information: Source of Sperm: Donor Fresh/Frozen: Frozen TMC (total motile count of sperm after wash): 10.8 Million Donor ID #: [id number] Cycle reviewed, all questions answered. Pt instructed to take a test in 17 days if no menses and call with results. SIGNATURE: Nakia Duran MD PATIENT NAME: Jaz Sanders DATE: July 07, 2024 TIME: 10:04 AM Fellow performed the procedure, without direct supervision but with primary surgeon/proceduralist readily available and the remainder of the procedure was performed by the primary surgeon/proceduralist with assistance. Stacy Banuelos MD [facility] 07-07-2024 Procedure note WHI JAMEL IUI PROCEDURE NOTE Date: 07/07/2024 Primary Proceduralist: Nakia Duran MD Consents and Labels Consent Signed: Informed Consent obtained and on the chart Labels Verified With Patient: Yes Indications: Jaz Sanders, is a 29 year old No obstetric history on file. female here today for intrauterine insemination. IUI # 2. Cycle Day: 14 Last menstrual period: 06/24/2024 [place] Protocol: UNIVERSAL PROTOCOL / SAFETY CHECKLIST Procedure to be Performed: IUI Sign In: A Moment of CARE was completed. Appropriate PPE (Personal Protective Equipment) worn by all providers involved with the procedure. Special equipment not required. Patient/Surrogate Stated/Verified: Patient name, Date of , Relevant allergies, and The intended procedure Time Out: Relevant labs, photos, and/or imaging studies have been reviewed. Intended patient and procedure match the source document(s) (e.g. consent, H&P, associated studies [imaging, pathology]) match the intended patient and procedure. Consent obtained and matches the intended procedure. Yes. Correct side/site has been marked and visible. Medications required for this procedure are verified. Fire risk assessed and is not applicable. Implants: are not applicable. Sign Out: Specimens not collected. All instruments, equipment, possible retained foreign bodies are accounted for. Yes. The post-procedure plan of care has been communicated to the patient or surrogate`. IUI IUI Date: 07/07/24 Partner's Name: Sravan Sanders IUI Time: 10:15 AM EDT Partner's : 09/09/1997 IUI #: 2 Partner's Patient's LMP: 06/24/24 Cycle Day: 14 Pre-Procedure Diagnosis: Infertility Post-Procedure Diagnosis: Infertility Cycle Meds: Natural Cycle Trigger: LH Surge Date Catheter Type: Curve catheter Tenaculum: No Catheter passed: Mildly Difficult For difficult catheter pass, add additional details: Cervical Polyp, was able to perform IUI without US guidance. Complications: None Sperm Information: Source of Sperm: Donor Fresh/Frozen: Frozen TMC (total motile count of sperm after wash): 10.8 Million Donor ID #: [id number] Cycle reviewed, all questions answered. Pt instructed to take a test in 17 days if no menses and call with results. SIGNATURE: Nakia Duran MD PATIENT NAME: Jaz Sanders DATE: July 07, 2024 TIME: 10:04 AM Fellow performed the procedure, without direct supervision but with primary surgeon/proceduralist readily available and the remainder of the procedure was performed by the primary surgeon/proceduralist with assistance. Stacy Banuelos MD [facility] 07-07-2024 Procedure note I JAMEL IUI PROCEDURE NOTE Date: 07/07/2024 Primary Proceduralist: Nakia Duran MD Consents and Labels Consent Signed: Informed Consent obtained and on the chart Labels Verified With Patient: Yes Indications: Jaz Sanders, is a 29 year old No obstetric history on file. female here today for intrauterine insemination. IUI # 2. Cycle Day: 14 Last menstrual period: 06/24/2024 [place] Protocol: UNIVERSAL PROTOCOL / SAFETY CHECKLIST Procedure to be Performed: IUI Sign In: A Moment of CARE was completed. Appropriate PPE (Personal Protective Equipment) worn by all providers involved with the procedure. Special equipment not required. Patient/Surrogate Stated/Verified: Patient name, Date of , Relevant allergies, and The intended procedure Time Out: Relevant labs, photos, and/or imaging studies have been reviewed. Intended patient and procedure match the source document(s) (e.g. consent, H&P, associated studies [imaging, pathology]) match the intended patient and procedure. Consent obtained and matches the intended procedure. Yes. Correct side/site has been marked and visible. Medications required for this procedure are verified. Fire risk assessed and is not applicable. Implants: are not applicable. Sign Out: Specimens not collected. All instruments, equipment, possible retained foreign bodies are accounted for. Yes. The post-procedure plan of care has been communicated to the patient or surrogate`. IUI IUI Date: 07/07/24 Partner's Name: Sravan Sanders IUI Time: 10:15 AM EDT Partner's : [birth year]/09/1997 IUI #: 2 Partner's Patient's LMP: 06/24/24 Cycle Day: 14 Pre-Procedure Diagnosis: Infertility Post-Procedure Diagnosis: Infertility Cycle Meds: Natural Cycle Trigger: LH Surge Date Catheter Type: Curve catheter Tenaculum: No Catheter passed: Mildly Difficult For difficult catheter pass, add additional details: Cervical Polyp, was able to perform IUI without US guidance. Complications: None Sperm Information: Source of Sperm: Donor Fresh/Frozen: Frozen TMC (total motile count of sperm after wash): 10.8 Million Donor ID #: [id number] Cycle reviewed, all questions answered. Pt instructed to take a test in 17 days if no menses and call with results. SIGNATURE: Nakia Duran MD PATIENT NAME: Jaz Sanders DATE: July 07, 2024 TIME: 10:04 AM Fellow performed the procedure, without direct supervision but with primary surgeon/proceduralist readily available and the remainder of the procedure was performed by the primary surgeon/proceduralist with assistance. Stacy Banuelos MD documented in this encounter [facility] 07-07-2024 Note HNO ID: [id number] Author: NICHELLE GONZALEZ, ? Service: ? Author Type: Candle Wrapper Type: Progress Notes Filed: 07/07/2024 09:41 Note Text: Thaw for IUI Nichelle Gonzalez [facility] 07-07-2024 History of Presen t illness Narrative Thaw for IUI Nichelle Gonzalez documented in this encounter [facility] 07-06-2024 Telephone encounter Note Called the pt back. Pt had an US done 07/04/24--Possible small 4 mm intracervical canal polyp. No other abnormal findings. Advised to move on with IUI tomorrow. FYI: Dr. Guy and Silvia, COATING MACHINE OPERATOR HELPER. Please let me know if any different instructions. Becki Isaacs PA-C July 06, 2024 3:26 PM [facility] 07-06-2024 Miscellaneous Notes Called the pt back. Pt had an US done 07/04/24--Possible small 4 mm intracervical canal polyp. No other abnormal findings. Advised to move on with IUI tomorrow. FYI: Dr. Guy and Silvia, COATING MACHINE OPERATOR HELPER. Please let me know if any different instructions. Becki Isaacs PA-C July 06, 2024 3:26 PM Patient states she is calling back unsure about if she is okay to proceed with iui tomorrow. Please call patient. documented in this encounter [facility] 07-06-2024 Telephone encounter Note Patient states she is calling back unsure about if she is okay to proceed with iui tomorrow. Please call patient. [facility] 07-06-2024 Telephone encounter Note See other TE for 07/04 Marianna Ward RN July 06, 2024 11:17 AM [facility] 07-06-2024 Miscellaneous Notes See other TE for 07/04 Marianna Ward RN July 06, 2024 11:17 AM On day 11 now, inquiring about if okay to proceed with iui with cervical polyp. Patient believes it will be tomorrow or Tuesday for iui- inquiring if polyp needs to be removed first. documented in this encounter [facility] 07-05-2024 Telephone encounter Note On day 11 now, inquiring about if okay to proceed with iui with cervical polyp. Patient believes it will be tomorrow or Tuesday for iui- inquiring if polyp needs to be removed first. [facility] 07-04-2024 Telephone encounter Note Spoke with Jaz regarding multiple questions. #1 - ultrasound results LMP 2/10, natural cycle, LH surge 06/08 -IUI 2/ - cervix bled during IUI, Dr. Guy recommended ultrasound before getting another IUI. Ultrasound done today. Cervical polyp seen. Dr. Guy - please advise if this needs to be removed before doing another IUI. LMP 3/10, OPK getting a faint line but not yet positive. Patient is worried about ovulation. She is on cycle day 10 today, largest follicle on ultrasound was 15.8mm. Reassured patient that she is growing a follicle and I'm not surprised OPK is not yet positive. She is predicted to ovulate on Tuesday or Tuesday. Shelly Hernandez APRN.CNP July 04, 2024 7:30 PM [facility] 07-04-2024 Miscellaneous Notes Spoke with Jaz regarding multiple questions. #1 - ultrasound results LMP 2/10, natural cycle, LH surge 06/08 -IUI 2/22 - cervix bled during IUI, Dr. Guy recommended ultrasound before getting another IUI. Ultrasound done today. Cervical polyp seen. Dr. Guy - please advise if this needs to be removed before doing another IUI. LMP 06/25, OPK getting a faint line but not yet positive. Patient is worried about ovulation. She is on cycle day 10 today, largest follicle on ultrasound was 15.8mm. Reassured patient that she is growing a follicle and I'm not surprised OPK is not yet positive. She is predicted to ovulate on Tuesday or Tuesday. Shelly Hernandez APRN.CNP July 04, 2024 7:30 PM documented in this encounter [facility] 07-04-2024 Note HNO ID: [id number] Author: IGNACIO GUY MD Service: ? Author Type: Physician Type: Progress Notes Filed: 07/04/2024 16:27 Note Text: 1 [facility] 07-04-2024 History of Presen t illness Narrative 1 documented in this encounter [facility] 06-09-2024 Note HNO ID: [id number] Author: IGNACIO GUY MD Service: ? Author Type: Fellow Type: Procedures Filed: 06/09/2024 12:30 Note Text: WHI JAMEL IUI PROCEDURE NOTE Date: 06/09/2024 Primary Proceduralist: Vidhi Sheldon MD Consents and Labels Consent Signed: Informed Consent obtained and on the chart Labels Verified With Patient: Yes Indications: Jaz Sanders, is a 29 year old No obstetric history on file. female here today for intrauterine insemination. IUI # 1. Cycle Day: 13 Last menstrual period: 05/28/2024 Galva Protocol: UNIVERSAL PROTOCOL / SAFETY CHECKLIST Procedure to be Performed: Intrauterine Insemination Sign In: A Moment of CARE was completed. Personnel directly involved with the procedure wore the appropriate PPE (Personal Protective Equipment). Patient/Surrogate Stated/Verified: PATIENT VERIFIED(optional for EMERGENT procedures): Patient name, Date of , Relevant allergies, and The intended procedure Time Out Communication: Intended patient and procedure match the source documents. Consent documented and matches the intended procedure. Sign Out: SIGN OUT (optional for EMERGENT procedures): No specimen collected. Participation of a fellow, resident, medical student, or advanced practice provider student in performing the sensitive examination was discussed with the patient or authorized housing management representative. The patient or authorized housing management representative has agreed to proceed with the sensitive examination. 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 Vidhi Sheldon MD IUI IUI Date: 06/09/24 Partner's Name: Sravan Sanders IUI Time: 11:50 AM EST Partner's : 09/09/1997 IUI #: 1 Partner's Patient's LMP: 05/28/24 Cycle Day: 13 Pre-Procedure Diagnosis: Infertility Post-Procedure Diagnosis: Infertility Cycle Meds: Natural Cycle Trigger: LH Surge Date Catheter Type: Curve catheter Tenaculum: No Catheter passed: Mildly Difficult For difficult catheter pass, add additional details: Recommend using long speculum and having patient come in with full bladder, placing additional anterior angle on catheter Complications: None Sperm Information: Source of Sperm: Donor Fresh/Frozen: Frozen TMC (total motile count of sperm after wash): 15.5 million Cycle reviewed, all questions answered. Pt instructed to take a test in 17 days if no menses and call with results. I performed this IUI. Pt did have some bleeding from the cervix post IUI and with pressure the bleeding from the cervix stopped. Will get pelivc scan here at [facility] if not with this IUI prior pt proceeding with another attmept at IUI. Ignacio Guy MD June 09, 2024 12:30 PM SIGNATURE: Vidhi Sheldon MD PATIENT NAME: Jaz Sanders DATE: June 09, 2024 TIME: 12:01 PM [facility] 06-09-2024 Procedure note WHI JAMEL IUI PROCEDURE NOTE Date: 06/09/2024 Primary Proceduralist: Vidhi Sheldon MD Consents and Labels Consent Signed: Informed Consent obtained and on the chart Labels Verified With Patient: Yes Indications: Jaz Sanders, is a 29 year old No obstetric history on file. female here today for intrauterine insemination. IUI # 1. Cycle Day: 13 Last menstrual period: 05/28/2024 Galva Protocol: UNIVERSAL PROTOCOL / SAFETY CHECKLIST Procedure to be Performed: Intrauterine Insemination Sign In: A Moment of CARE was completed. Personnel directly involved with the procedure wore the appropriate PPE (Personal Protective Equipment). Patient/Surrogate Stated/Verified: PATIENT VERIFIED(optional for EMERGENT procedures): Patient name, Date of , Relevant allergies, and The intended procedure Time Out Communication: Intended patient and procedure match the source documents. Consent documented and matches the intended procedure. Sign Out: SIGN OUT (optional for EMERGENT procedures): No specimen collected. Participation of a fellow, resident, medical student, or advanced practice provider student in performing the sensitive examination was discussed with the patient or authorized housing management representative. The patient or authorized housing management representative has agreed to proceed with the sensitive examination. 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 Vidhi Sheldon MD IUI IUI Date: 06/09/24 Partner's Name: Sravan Sanders IUI Time: 11:50 AM EST Partner's : 09/09/1997 IUI #: 1 Partner's Patient's LMP: 05/28/24 Cycle Day: 13 Pre-Procedure Diagnosis: Infertility Post-Procedure Diagnosis: Infertility Cycle Meds: Natural Cycle Trigger: LH Surge Date Catheter Type: Curve catheter Tenaculum: No Catheter passed: Mildly Difficult For difficult catheter pass, add additional details: Recommend using long speculum and having patient come in with full bladder, placing additional anterior angle on catheter Complications: None Sperm Information: Source of Sperm: Donor Fresh/Frozen: Frozen TMC (total motile count of sperm after wash): 15.5 million Cycle reviewed, all questions answered. Pt instructed to take a test in 17 days if no menses and call with results. I performed this IUI. Pt did have some bleeding from the cervix post IUI and with pressure the bleeding from the cervix stopped. Will get pelivc scan here at [facility] if not with this IUI prior pt proceeding with another attmept at IUI. Ignacio Guy MD June 09, 2024 12:30 PM SIGNATURE: Vidhi Sheldon MD PATIENT NAME: Jaz Sanders DATE: June 09, 2024 TIME: 12:01 PM [facility] Work Phone: 06-09-2024 Procedure note WHI JAMEL IUI PROCEDURE NOTE Date: 06/09/2024 Primary Proceduralist: Vidhi Sheldon MD Consents and Labels Consent Signed: Informed Consent obtained and on the chart Labels Verified With Patient: Yes Indications: Jaz Sanders, is a 29 year old No obstetric history on file. female here today for intrauterine insemination. IUI # 1. Cycle Day: 13 Last menstrual period: 05/28/2024 Galva Protocol: UNIVERSAL PROTOCOL / SAFETY CHECKLIST Procedure to be Performed: Intrauterine Insemination Sign In: A Moment of CARE was completed. Personnel directly involved with the procedure wore the appropriate PPE (Personal Protective Equipment). Patient/Surrogate Stated/Verified: PATIENT VERIFIED(optional for EMERGENT procedures): Patient name, Date of , Relevant allergies, and The intended procedure Time Out Communication: Intended patient and procedure match the source documents. Consent documented and matches the intended procedure. Sign Out: SIGN OUT (optional for EMERGENT procedures): No specimen collected. Participation of a fellow, resident, medical student, or advanced practice provider student in performing the sensitive examination was discussed with the patient or authorized housing management representative. The patient or authorized housing management representative has agreed to proceed with the sensitive examination. 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 Vidhi Sheldon MD IUI IUI Date: 06/09/24 Partner's Name: Sravan Sanders IUI Time: 11:50 AM EST Partner's : 09/09/1997 IUI #: 1 Partner's Patient's LMP: 05/28/24 Cycle Day: 13 Pre-Procedure Diagnosis: Infertility Post-Procedure Diagnosis: Infertility Cycle Meds: Natural Cycle Trigger: LH Surge Date Catheter Type: Curve catheter Tenaculum: No Catheter passed: Mildly Difficult For difficult catheter pass, add additional details: Recommend using long speculum and having patient come in with full bladder, placing additional anterior angle on catheter Complications: None Sperm Information: Source of Sperm: Donor Fresh/Frozen: Frozen TMC (total motile count of sperm after wash): 15.5 million Cycle reviewed, all questions answered. Pt instructed to take a test in 17 days if no menses and call with results. I performed this IUI. Pt did have some bleeding from the cervix post IUI and with pressure the bleeding from the cervix stopped. Will get pelivc scan here at [facility] if not with this IUI prior pt proceeding with another attmept at IUI. Ignacio Guy MD June 09, 2024 12:30 PM SIGNATURE: Vidhi Sheldon MD PATIENT NAME: Jaz Sanders DATE: June 09, 2024 TIME: 12:01 PM documented in this encounter [facility] 06-09-2024 Note HNO ID: [id number] Author: NICHELLE GONZALEZ, ? Service: ? Author Type: Candle Wrapper Type: Progress Notes Filed: 06/09/2024 12:30 Note Text: IUI [employer] #: [id number] Washed frozen sample Post: 42 m/ml, 74% Insem#: 15.5 million [facility] 06-09-2024 History of Presen t illness Narrative IUI [employer] #: [id number] Washed frozen sample Post: 42 m/ml, 74% Insem#: 15.5 million IUI specimen released to provider Nichelle Gonzalez June 09, 2024 11:24 AM documented in this encounter [facility] 06-09-2024 Note HNO ID: [id number] Author: NICHELLE GONZALEZ, ? Service: ? Author Type: Candle Wrapper Type: Progress Notes Filed: 06/09/2024 11:48 Note Text: Thaw for IUI Nichelle Gonzalez [facility] 06-09-2024 History of Presen t illness Narrative Thaw for IUI Nichelle Gonzalez documented in this encounter [facility] 06-09-2024 Note HNO ID: [id number] Author: NICHELLE GONZALEZ, ? Service: ? Author Type: Candle Wrapper Type: Progress Notes Filed: 06/09/2024 12:30 Note Text: IUI specimen released to provider Nichelle Gonzalez June 09, 2024 11:24 AM [facility] 05-09-2024 Instructions Shelly Hernandez APRN.POTATO INSPECTOR - 05/09/2024 9:08 AM EST Images from the original note were not included. REPRODUCTIVE ENDOCRINOLOGY AND INFERTILITY DONOR SPERM HANDOUT Donor Sperm Checklist: Complete Next Steps: Progesterone blood test 6-8 days after your LH surge - please let me know the test result when you get it. IUI Procedure consent form - sent to you via [employer] today. Please sign when you can. Order sperm Financial Clearance - I sent your chart to the front attendant today. Treatment plan: Natural cycle/IUI x 3 cycles. Please schedule a follow up visit with Dr. Guy if you are not after 3 cycles. Sperm Ordering Instructions We need 1 vial per cycle. You will likely need 3-6 vials to establish a . You are welcome to buy more than one and store with the [facility]. Mailing address: Attention: Nichelle Gonzalez [address] [place] [address], [address] [place] [address] Storage at the [facility] is available. Fees are yearly and only start once you are not actively trying. Please ask the financial team ([phone]) for current cost information. Donor Insemination Scheduling Instructions Please call during the first business day of your menstrual cycle to let the front attendant know you will be testing and doing an insemination this cycle. Make sure you are authorized/cleared to do an IUI. Timing In order to determine the timing for IUI you will need to use an Ovulation Predictor Kit. Upon rising, empty your bladder. Collect the second urine of the day 1 hour later and use this to test your LH surge. Please start testing on cycle day 9/10 and continue until you get a positive reading. You come in for IUI the day after your LH surge. Please avoid Ibuprofen or similar medications (Advil, Motrin, Anaprox, or Aleve) for 2 days after the LH surge as they may interfere with ovulation. Please use Tylenol instead. If you do not get a positive on your OPK by cycle day 21, please call the office to discuss. Location [address], [place] [address] Available every day, including weekends and holidays (except Zulay and New Years.) Weekday IUI scheduling The day you get your LH surge, please call [phone] between 8:00am - 12:00pm to schedule your insemination for the next day. If you call after 12pm, we may not be able to schedule your appointment. IUI s are done by appointment only. You will make 2 appointments -an arrival time and a procedure time. [address], [place] [address] Available every day, including weekends and holidays (except Zulay and New Years.) Available for IUI using fresh and frozen samples. Check in location for sperm wash and IUI: [address] The sperm wash takes 60-90 minutes. Weekend/Holiday IUI Scheduling If your LH surge occurs on a weekend or holiday, please call between 8am and 12pm. If you call after 12pm, we may not be able to schedule your appointment. There will be a pre-recorded greeting announcing the office is closed. Please stay on the line for the answering service. They will put a page through to the staff on-call. Return calls may take an hour or longer as we are in the office doing procedures. We will return your call as soon as we are able and give you appointment times for the following day. Due to new guidelines, we have a limited number of procedure slots available on the weekend. After IUI: take a home test 14-17 days after IUI (even if you bleed) and call the office with updates. If you are , we will order blood tests, schedule a Virtual Visit and perform an ultrasound before you graduate from our department. If you get your period and want to do another IUI: Call the front attendant to make sure you are financially cleared. Ask to speak to an SKYLAR to confirm your treatment plan. Important phone number: [phone] documented in this encounter [facility] 05-09-2024 Note HNO ID: [id number] Author: SHELLY HERNANDEZ APRN.CNP Service: ? Author Type: Nurse Practitioner Type: Progress Notes Filed: 05/09/2024 09:12 Note Text: REPRODUCTIVE ENDOCRINOLOGY AND INFERTILITY DONOR SPERM FOLLOW UP SERVICE DATE: 05/09/2024 SERVICE TIME: 8:12 AM NAME: Jaz Sanders VIRTUAL VISIT PROGRESS NOTE This is a virtual visit. It required patient-provider interaction for the medical decision making as documented below. Patient name and birthday verified: Yes Location of patient: home Persons Present: patient and patient's spouse/significant other I have communicated my name and active licensure. The patient's identity and physical location were verified at the time of this visit. Either the patient or their legal housing management representative has been informed of the risks and benefits of -- and alternatives to -- treatment through a remote evaluation and consents to proceed with the evaluation remotely. Reason for visit: donor sperm follow up MARCUS Sebastian () and Sravan present for donor sperm follow up Treatment plan: Natural cycle/IUI-D x 3 cycles Latest Ref Rng 04/02/2024 ABO A Rh(D) Positive Antibody Screen Negative Type+Scr Expiration 04/05/2024 23:59 HIV 12 Combo (Ag/Ab) Nonreactive Nonreactive HIV 1/2 Ab -- HIV Interpretation -- CMV IgG Qualitative Negative Negative CMV Antibody, IgG U/mL <0.20 Syphilis Treponemal Screen Nonreactive Nonreactive Syphilis Interpretation Cannot exclude recent Treponemal infection if specimen collected within 7-10 days after appearance of suspect lesions or 2-3 weeks after an exposure. Clinical correlation is required. Neisseria gonorrhoeae RNA Not detected Not detected Chlamydia trachomatis RNA Not detected Not detected Hemoglobin A1C 4.3 - 5.6 % 4.6 Estimated Average Glucose mg/dL 85 Varicella Zoster IgG, Qual Positive Positive Rubella IgG, Qual Positive Positive CMV IgM, Qual Negative Negative Hep C Antibody IA Negative Negative Hep B Core Ab, Total Negative Negative Hep B Surface Ag Negative Negative Vitamin D 25 Hydroxy 31.0 - 80.0 ng/mL 28.8 (L) Latest Ref Rng 04/02/2024 ABO A Rh(D) Positive Antibody Screen Negative Type+Scr Expiration 04/05/2024 23:59 HIV 12 Combo (Ag/Ab) Nonreactive Nonreactive HIV 1/2 Ab -- HIV Interpretation -- CMV IgG Qualitative Negative Negative CMV Antibody, IgG U/mL <0.20 Syphilis Treponemal Screen Nonreactive Nonreactive Syphilis Interpretation Cannot exclude recent Treponemal infection if specimen collected within 7-10 days after appearance of suspect lesions or 2-3 weeks after an exposure. Clinical correlation is required. Neisseria gonorrhoeae RNA Not detected Not detected Chlamydia trachomatis RNA Not detected Not detected CMV IgM, Qual Negative Negative Hep C Antibody IA Negative Negative Hep B Core Ab, Total Negative Negative Hep B Surface Ag Negative Negative Donor Sperm Checklist Done Still Needed [x] [] Donor Sperm Teach [x] [] Psychosocial Assessment [x] [] Donor Sperm Consent Form -05/08/2024 [] [] IUI Consent Form Donor Sperm Labs [x] [] Patient [x] [] Partner Genetic Carrier Screening [x] [] Patient [x] [] labs: TANDS, Rubella IgG, Varicella IgG, HbA1c [x] [] Well woman care - last annual/pap 02/20/2024 Imaging: [] [] HSG - defer for 3 cycles [x] [] Pelvic Ultrasound - done [] [] Practice cycle LMP 05/04 She has been tracking her cycles and she does get a positive around cycle day 12 LMP 04/08, + OPK 1/2 - cycle day 12 Donor Search Criteria Blood type: Any CMV Status: negative Genetic carrier considerations: If the donor is a carrier for any conditions, please make sure you were tested for those conditions and do not carry them. No double whammies. 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 Vial types available: IUI and ART Considerations when using this donor: IUI vial recommended Green light Plan: Donor Sperm episode/checklist updated Pending checklist items: Progesterone blood test, IUI consent, order sperm Confirmed best vial type to order: IUI Shelly Hernandez APRN.POTATO INSPECTOR May 09, 2024 8:12 AM I spent a total of 60 minutes on the date of the service which included preparing to see the patient, [id number] patient care, completing clinical documentation, obtaining and/or reviewing separately obtained history, counseling and educating the patient/family/caregiver, ordering medications, tests, or procedures, independently interpreting results (not separately reported), communicating results to the patient/family/caregiver, and care coordination (not separately reported). To patients reading this note: Please be advised the primary purpose of this note is for me to communicate with myself and other members of your medical team. Standard se (more content not included)... [facility] 05-09-2024 History of Presen t illness Narrative Images from the original note were not included. REPRODUCTIVE ENDOCRINOLOGY AND INFERTILITY DONOR SPERM FOLLOW UP SERVICE DATE: 05/09/2024 SERVICE TIME: 8:12 AM NAME: Jaz Sanders VIRTUAL VISIT PROGRESS NOTE This is a virtual visit. It required patient-provider interaction for the medical decision making as documented below. Patient name and birthday verified: Yes Location of patient: home Persons Present: patient and patient's spouse/significant other I have communicated my name and active licensure. The patient's identity and physical location were verified at the time of this visit. Either the patient or their legal housing management representative has been informed of the risks and benefits of -- and alternatives to -- treatment through a remote evaluation and consents to proceed with the evaluation remotely. Reason for visit: donor sperm follow up MARCUS Sebastian () and Sravan present for donor sperm follow up Treatment plan: Natural cycle/IUI-D x 3 cycles Latest Ref Rng 04/02/2024 ABO A Rh(D) Positive Antibody Screen Negative Type+Scr Expiration 04/05/2024 23:59 HIV 12 Combo (Ag/Ab) Nonreactive Nonreactive HIV 1/2 Ab -- HIV Interpretation -- CMV IgG Qualitative Negative Negative CMV Antibody, IgG U/mL <0.20 Syphilis Treponemal Screen Nonreactive Nonreactive Syphilis Interpretation Cannot exclude recent Treponemal infection if specimen collected within 7-10 days after appearance of suspect lesions or 2-3 weeks after an exposure. Clinical correlation is required. Neisseria gonorrhoeae RNA Not detected Not detected Chlamydia trachomatis RNA Not detected Not detected Hemoglobin A1C 4.3 - 5.6 % 4.6 Estimated Average Glucose mg/dL 85 Varicella Zoster IgG, Qual Positive Positive Rubella IgG, Qual Positive Positive CMV IgM, Qual Negative Negative Hep C Antibody IA Negative Negative Hep B Core Ab, Total Negative Negative Hep B Surface Ag Negative Negative Vitamin D 25 Hydroxy 31.0 - 80.0 ng/mL 28.8 (L) Latest Ref Rng 04/02/2024 ABO A Rh(D) Positive Antibody Screen Negative Type+Scr Expiration 04/05/2024 23:59 HIV 12 Combo (Ag/Ab) Nonreactive Nonreactive HIV 1/2 Ab -- HIV Interpretation -- CMV IgG Qualitative Negative Negative CMV Antibody, IgG U/mL <0.20 Syphilis Treponemal Screen Nonreactive Nonreactive Syphilis Interpretation Cannot exclude recent Treponemal infection if specimen collected within 7-10 days after appearance of suspect lesions or 2-3 weeks after an exposure. Clinical correlation is required. Neisseria gonorrhoeae RNA Not detected Not detected Chlamydia trachomatis RNA Not detected Not detected CMV IgM, Qual Negative Negative Hep C Antibody IA Negative Negative Hep B Core Ab, Total Negative Negative Hep B Surface Ag Negative Negative Donor Sperm Checklist Done Still Needed [x] [] Donor Sperm Teach [x] [] Psychosocial Assessment [x] [] Donor Sperm Consent Form -05/08/2024 [] [] IUI Consent Form Donor Sperm Labs [x] [] Patient [x] [] Partner Genetic Carrier Screening [x] [] Patient [x] [] labs: T&S, Rubella IgG, Varicella IgG, HbA1c [x] [] Well woman care - last annual/pap 02/20/2024 Imaging: [] [] HSG - defer for 3 cycles [x] [] Pelvic Ultrasound - done [] [] Practice cycle LMP 05/04 She has been tracking her cycles and she does get a positive around cycle day 12 LMP 04/08, + OPK 1/2 - cycle day 12 Donor Search Criteria Blood type: Any CMV Status: negative Genetic carrier considerations: If the donor is a carrier for any conditions, please make sure you were tested for those conditions and do not carry them. No double whammies. Sperm bank/donor #: [employer] [phone] Blood type: A negative CMV Status: negative Genetic carrier considerations: patient Myriad negative donor is a carrier of: CFTR, [id number] Vial types available: IUI and ART Considerations when using this donor: IUI vial recommended Green light Plan: Donor Sperm episode/checklist updated Pending checklist items: Progesterone blood test, IUI consent, order sperm Confirmed best vial type to order: IUI Shelly Hernandez APRN.CNP May 09, 2024 8:12 AM I spent a total of 60 minutes on the date of the service which included preparing to see the patient, [id number] patient care, completing clinical documentation, obtaining and/or reviewing separately obtained history, counseling and educating the patient/family/caregiver, ordering medications, tests, or procedures, independently interpreting results (not separately reported), communicating results to the patient/family/caregiver, and care coordination (not separately reported). To patients reading this note: Please be advised the primary purpose of this note is for me to communicate with myself and other members of your medical team. Standard sentence structure is not always used. Medical terminology and medical abbreviations may be used. There may be grammatical and typographical errors missed in proofreading. documented in this encounter [facility] 05-02-2024 History of Presen t illness Narrative Psychosocial Consultation for [employer] Virtual visit with audio and visual equipment POS 10 No SI, Falls, Tobacco use On May 02, 2024, I met virtually with Jaz and Sravan Sanders. They were referred by Shelly Hernandez at [facility] for their required psychosocial consultation regarding third republican reproduction. Relevant History Jaz, 29, and Demetrius, 26, have been together for 8.5 years and for 6.5 years. 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 Demetrius also works at that [employer] station. The couple has been trying to conceive for 8 years. It was not until more recently that Jaz and Demetrius considered that Demetrius may have some male factor infertility. When assessed, he was diagnosed with a varicocele and has virtually no viable sperm. It was Demetrius who first suggested that they consider using IUI with donor sperm. Although disappointed to not be able to use his own sperm, Demetrius is well aware that a genetic tie is not what makes a parent. He has no contact with his biological father and is very close with his step-father who was able to adopt him. The Maria Eugenia's have already chosen a donor from [employer] in [place]. They chose this donor because he is CMV-, met their genetic screen (he does not have a history of bipolar disorder) and is phenotypically very similar to Demetrius. He is also listed as open ID. With regard to disclosure, the Janae are prepared and interested in disclosure to offspring and we reviewed the data on disclosure at a young age and discussed books that are for children to explain the concept. We also discussed the possibility of donor siblings and the lack of anonymity in third republican reproduction. They are very comfortable with disclosure. Jaz reports that she has been diagnosed with bipolar disorder (not sure if I or 2) and has an excellent relationship with her psychiatrist who has already altered her medication to choose medicines safer for a . Jaz and the psychiatrist are aware of her increased risk for a / mood disorder and will meet regularly during her and . She has never had a manic episode and has never been hospitalized. Demetrius denies any psychiatric history. Both deny any substance abuse or history of physical or sexual abuse. Impression: It is my clinical opinion that Jaz and Sravan Sanders are able to give informed consent and have carefully considered the psychosocial issues inherent in this third republican reproductive option. documented in this encounter [facility] Work Phone: 03-11-2024 Note HNO ID: [id number] Author: SHELLY HERNANDEZ APRN.JARROD Service: ? Author Type: Nurse Practitioner Type: Progress Notes Filed: 03/11/2024 23:04 Note Text: REPRODUCTIVE ENDOCRINOLOGY AND INFERTILITY DONOR SPERM TEACH SERVICE DATE: 03/11/2024 SERVICE TIME: 10:42 PM NAME: Jaz Sanders VIRTUAL VISIT PROGRESS NOTE This is a virtual visit. It required patient-provider interaction for the medical decision making as documented below. Patient name and birthday verified: Yes Location of patient: home Persons Present: patient and patient's spouse/significant other I have communicated my name and active licensure. The patient's identity and physical location were verified at the time of this visit. Either the patient or their legal housing management representative has been informed of the risks and benefits of -- and alternatives to -- treatment through a remote evaluation and consents to proceed with the evaluation remotely. Reason for visit: procreative management, desire for donor sperm IUI HPI Jaz and Sravan present to discuss donor sperm IUI. Treatment plan: Natural cycle/IUI-D x 3 cycles Patient's ideal timeline to proceed with treatment plan: as soon as able Donor Sperm Checklist Done Still Needed [x] [] Donor Sperm Teach [] [] Psychosocial Assessment [] [] Donor Sperm Consent Form [] [] IUI Consent Form Donor Sperm Labs [] [] Patient [] [] Partner Genetic Carrier Screening [] [] Patient [] [] labs: TANDS, Rubella IgG, Varicella IgG, HbA1c [] [] Well woman care - last annual/pap 02/20/2024 Imaging: [] [] HSG - defer for 3 cycles [] [] Pelvic Ultrasound - done [] [] Practice cycle Plan: Episode created.Reviewed checklist - [employer] Appt message sent Practice cycle: recommended OPKs to test for ovulation and timing of IUIs, patient to call with +OPK, confirm ovulation with progesterone level Follow up once checklist is complete to discuss test results and next steps. Shelly Hernandez, MELY.POTATO INSPECTOR March 11, 2024 10:42 PM I spent a total of 55 minutes on the date of the service which included preparing to see the patient, [id number] patient care, completing clinical documentation, obtaining and/or reviewing separately obtained history, counseling and educating the patient/family/caregiver, ordering medications, tests, or procedures, independently interpreting results (not separately reported), communicating results to the patient/family/caregiver, and care coordination (not separately reported). To patients reading this note: Please be advised the primary purpose of this note is for me to communicate with myself and other members of your medical team. Standard sentence structure is not always used. Medical terminology and medical abbreviations may be used. There may be grammatical and typographical errors missed in proofreading. [facility] 03-11-2024 History of Presen t illness Narrative Images from the original note were not included. REPRODUCTIVE ENDOCRINOLOGY AND INFERTILITY DONOR SPERM TEACH SERVICE DATE: 03/11/2024 SERVICE TIME: 10:42 PM NAME: Jaz Sanders VIRTUAL VISIT PROGRESS NOTE This is a virtual visit. It required patient-provider interaction for the medical decision making as documented below. Patient name and birthday verified: Yes Location of patient: home Persons Present: patient and patient's spouse/significant other I have communicated my name and active licensure. The patient's identity and physical location were verified at the time of this visit. Either the patient or their legal housing management representative has been informed of the risks and benefits of -- and alternatives to -- treatment through a remote evaluation and consents to proceed with the evaluation remotely. Reason for visit: procreative management, desire for donor sperm IUI HPI Jaz and Sravan present to discuss donor sperm IUI. Treatment plan: Natural cycle/IUI-D x 3 cycles Patient's ideal timeline to proceed with treatment plan: as soon as able Donor Sperm Checklist Done Still Needed [x] [] Donor Sperm Teach [] [] Psychosocial Assessment [] [] Donor Sperm Consent Form [] [] IUI Consent Form Donor Sperm Labs [] [] Patient [] [] Partner Genetic Carrier Screening [] [] Patient [] [] labs: T&S, Rubella IgG, Varicella IgG, HbA1c [] [] Well woman care - last annual/pap 02/20/2024 Imaging: [] [] HSG - defer for 3 cycles [] [] Pelvic Ultrasound - done [] [] Practice cycle Plan: Episode created.Reviewed checklist - [employer] message sent Practice cycle: recommended OPKs to test for ovulation and timing of IUIs, patient to call with +OPK, confirm ovulation with progesterone level Follow up once checklist is complete to discuss test results and next steps. Shelly Hernandez APRN.POTATO INSPECTOR March 11, 2024 10:42 PM I spent a total of 55 minutes on the date of the service which included preparing to see the patient, [id number] patient care, completing clinical documentation, obtaining and/or reviewing separately obtained history, counseling and educating the patient/family/caregiver, ordering medications, tests, or procedures, independently interpreting results (not separately reported), communicating results to the patient/family/caregiver, and care coordination (not separately reported). To patients reading this note: Please be advised the primary purpose of this note is for me to communicate with myself and other members of your medical team. Standard sentence structure is not always used. Medical terminology and medical abbreviations may be used. There may be grammatical and typographical errors missed in proofreading. documented in this encounter [facility] 03-09-2024 Instructions Shelly Hernandez APRN.CNP - 03/09/2024 10:08 AM EST Images from the original note were not included. REPRODUCTIVE ENDOCRINOLOGY AND INFERTILITY DONOR SPERM INFORMATION Dear Jaz, It was so nice to meet you at your recent appointment. I look forward to working with you. Here is a summary of everything we discussed. The best way to reach me: MyChart Message. If you have a time sensitive/urgent question, please call the office. ~Silvia Hernandez APRN.CNP [phone] Donor Sperm Checklist Donor Sperm Labs Mandatory for Jaz and Sravan Blood Type, HIV, Syphilis, Hepatitis B (Surface Ag & Core Ab), Hepatitis C, Gonorrhea, Chlamydia, CMV IgG, CMV IgM Valid for 1 year. If you are still undergoing treatment at that time, we will need to update this testing. Genetic Carrier Screening (testing for Jaz) Done to identify any recessive hereditary disorders you carry to help with the donor selection process. Processing time takes 2-3 weeks. If your insurance doesn't cover it, the self-pay de oliveira is $250. Counselor Assessment - Sravan must be present Amanda Gillespie MD ([place]) - [phone] Rani Sims (Filomena Hernandez) - [phone] - virtual visit Saúl Enriquez, - virtual visit Margie Leonard, - virtual visit Donor sperm consent form - must be signed by both of you signature must be witnessed by our staff or notarized. This was sent to you in a MyChart Letter. Testing/Fertility Testing labs: Rubella & Varicella titers, HBA1c, Vitamin D Practice cycle to confirm ovulation. See instructions below. Imaging tests: Pelvic ultrasound to look at reproductive anatomy = already done. HSG to make sure your fallopian tubes are open = decided to defer for 3 cycles. You need to be up to date with your well woman care (annual exam in the last year, pap testing/mammogram up to date). Please get scheduled with your nuclear waste process operator or pcp if needed. Practice with Ovulation Predictor Kit (OPK) First day of full flow is cycle day #1. Start using on ovulation predictor kit on cycle day 10. Use your OPK once a day, in the morning with your second urine of the day. Send in a [employer] message when you get a positive OPK. ( Practice cycle, progesterone level needed. ) A progesterone order will be placed. Please go to the lab 6-8 days after the positive on your OPK. If you do not get a positive on your OPK by cycle day 21, please call the office. We will order the progesterone level at that time to confirm your ovulation status. Once your checklist is complete, please call [phone] to get scheduled for a donor sperm follow up appointment. Sperm Bank Website [employer] Cryobank [email or web address]/ [facility] [email or web address]/ [employer] https://www.cryosinternational. com/ [place] [facility] https://blueKiwi Software.com/ [facility] Sperm Bank https://www.[facility] rehabilitationLittleCast, Inc.perDune Networksank.co m/ [facility] [place] https://www.thespermbankofca.or g/ [place] [facility] https://www.Ciashopbank.co m/ [employer] https://www.[email or web address].GloPos Technology/ If you would like to start browsing sperm doshi, this is a list of doshi we currently use. We can use any bank that is FDA approved. If you wish to use a bank not listed here, please review the name with me. We will confirm whether or not we can receive samples from this bank. *Please do not finalize your selection as we have to take your test results into consideration. Once your testing is complete, I will send you donor sperm search criteria. *Do not order any sperm until your checklist is complete. We will review ordering instructions at your follow up visit. Codes for Donor Sperm Labs Please check with your insurance to make sure these labs are covered. If your insurance does not cover, a self pay panel is available. Please reach out to me if this is needed. 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 rates discussed and use of meds vs natural cycle was discussed. Given her periods are regular I would recommend timed IUI for now and hol doff on the HSG for three cycles. They will meet with COATING MACHINE OPERATOR HELPER to review the IUI checklist and sign consents. I spent a total of 45 minutes on the date of the service which included preparing to see the patient, pbkt-qk-emzl patient care, completing clinical documentation, counseling and educating the patient/family/caregiver, and ordering medications, tests, or procedures. 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 rates discussed and use of meds vs natural cycle was discussed. Given her periods are regular I would recommend timed IUI for now and hol doff on the HSG for three cycles. They will meet with COATING MACHINE OPERATOR HELPER to review the IUI checklist and sign consents. I spent a total of 45 minutes on the date of the service which included preparing to see the patient, [id number]-[id number]-jgig patient care, completing clinical documentation, counseling and educating the patient/family/caregiver, and ordering medications, tests, or procedures. Ignacio Guy MD documented in this encounter [facility] 02-28-2024 Instructions Ignacio Guy MD - 02/28/2024 2:47 PM EST Dear Jaz Sanders Using donor sperm at the [facility] requires some set up (outlined below). Requirements to use donor sperm at the [facility]: Teaching with JAMEL SKYLAR - please call [phone] to schedule a donor sperm teach with my nurse practitioner, Silvia Hernandez. If you have a partner/spouse, they need to be present during this appointment. She will talk you through the process, answer all of your questions and place orders for required testing at that time. Lab work You and your partner/spouse will need to undergo testing for Blood Type, CMV status, STD screening. The full list and codes are below. These tests are mandatory and must be current within 1 year. If you are still undergoing treatment at that time, we will have to update these tests. Please check with your insurance for coverage using the codes provided below. If your insurance does not cover this testing, we have a self-pay panel available. Genetic screening is available to identify any recessive hereditary disorders you carry to help with the donor selection process. i[employer]py[employer] Carrier Screen is the test ordered. Processing time takes 2-3 weeks. If your insurance doesn't cover it, the self-pay de oliveira is ~$250. Counselor You and your partner/spouse (if applicable) must see a counselor for a donor sperm assessment. Amanda Gillespie MD ([place]) - [phone] Rani Sims (Filomena [facility] Ramon[facility]) - [phone] Doris Lama ([place]) - [phone] Consent form - must be signed by you and your spouse (if applicable), signature must be witnessed by our staff or notarized. Other - Rubella and Varicella titers are a part of general screening. Only the patient carrying the needs these tests. If you are negative for these antibodies, booster shots will be recommended before we start treatment. Rubella/Varicella infection during can cause defects. Make sure you are up to date with pap/HPV screening. We will discuss anything else pertinent to your treatment plan during your teaching appointment. Codes for Required Tests Test: CPT Code: Blood type 56999 HIV 85475 CMV IgG 56601 CMV IgM 04952 Syphilis 02173 Hepatitis B Surface Ag 61810 Hepatitis B Core Ab, IgG and IgM 62500 Hepatitis C Ab 16785 Rubella 31312 Varicella 42657 Chlamydia 70894 Gonorrhea 99853 For the above tests, reference the diagnosis code of Z31.49. [employer] Carrier Screen - [employer] will check coverage for you. For this genetic screening panel, diagnosis code of Z31.430 Sperm Doshi If you would like to start browsing sperm doshi, this is a list of doshi we currently use. We can use any bank that is FDA approved. If you wish to use a bank not listed here, please review the name with me. We will confirm whether or not we can receive samples from this bank. *Please do not finalize your selection as we have to take your test results into consideration. Sperm Bank [employer] [place] [facility] ([place]) [facility] Sperm Bank Cryobank [employer] ([facility] [place]) [place] [facility] [employer] *Do not order any sperm until your checklist is complete. We will review ordering instructions at your follow up visit. Next Steps: Call insurance to verify coverage for donor sperm panel. Schedule donor sperm teach with my nurse practitioner, Silvia Hernandez. Ignacio Guy MD [phone] documented in this encounter [facility] 02-28-2024 Note HNO ID: [id number] Author: IGNACIO GUY MD Service: ? Author Type: Physician Type: Progress Notes Filed: 03/08/2024 20:45 Note Text: REPRODUCTIVE ENDOCRINOLOGY AND INFERTILITY NEW PATIENT CLINIC NOTE SERVICE DATE: 02/28/2024 SERVICE TIME: 2:17 PM NAME: Jaz Sanders HISTORY OF PRESENT ILLNESS Jaz Sanders is a 28 year old No obstetric history on file. female with infertility for 8 years. They becames aware there was an issue with the sperm one year ago. She took femara for 4 cycles before they were aware that he has essentially azospermia. Then he saw Dr Singleton and took clomid. He had varicocele repair later. Here to discuss use of donor sperm. Pt had gastric sleeve surgery in apr 2020 and lost 225 lbs and her periods have normalized since that time. 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 Menstrual cycle pattern: Regular periods (25-34 days in length) Cycle length (days): 25-27 Days of bleedin-5 OPK use: Yes, able to detect Dysmenorrhea: Rarely Dyspareunia: No STI history: None Last Pap Smear Date: 02/20/24 Last pap outcome: Normal History of abnormal PAP: No, all prior PAP smears have been normal Procedure for abnormal pap smear: None Fertility Evaluations and Treatments: Eval Checklist Results Date Comments HSG Hysteroscopy Laparoscopy [facility] SIS Semen Analysis Ultrasound Other (See comments) LABS/IMAGING: Last scan was in Mar 2022, but not in these records. Pt states she thinks it was normal. PAST MEDICAL HISTORY Diagnosis Date Anemia Anxiety state Bipolar 1 disorder (HCC) Complication of anesthesia Hypothyroid Irregular menses Thyroid disease PAST SURGICAL HISTORY Procedure Laterality Date PAST SURGICAL HISTORY OF shoulder surgery REMOVAL GALLBLADDER 2014 FAMILY HISTORY Problem Relation Age of Onset other (HTN) Maternal Grandfather Diabetes Maternal Grandfather Current Outpatient Medications Medication Sig naltrexone 50 mg tablet Take 2 tablets by mouth two times a day. acetaminophen (TYLENOL) 500 mg tablet Take 500 mg by mouth every 8 hours as needed for pain. busPIRone (BUSPAR) 15 mg tablet Take 15 mg by mouth two times a day. levothyroxine 50 mcg cap Take 50 mcg by mouth every morning. lansoprazole (PREVACID) 30 mg capsule Take 30 mg by mouth once daily. lamoTRIgine (LAMICTAL) 200 mg tablet Take 200 mg by mouth once daily. Polysaccharide Iron Complex (PRO FE) 180 mg iron cap Take 2 capsules by mouth two times a day. docusate sodium (COLACE) 100 mg capsule Take 100 mg by mouth two times a day as needed for constipation. QUEtiapine (SEROQUEL) 25 mg tablet Take 25 mg by mouth daily at bedtime. No current facility-administered medications for this visit. Allergies As of Date: 02/28/2024 (Not on File) Fully Assessed 02/28/2024 Partner History Both patient and partner give permission to discuss test results and medication information with the other. Partner gives permission to access EMR. 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 ?: Yes Years together: 8 years Do they have children together?: No Any other Previous Pregnancies?: No Number of cigarettes smoked daily: >10 Marijuana use: Yes, daily Number of alcoholic beverages: Noneper week Pertinent Surgical Hx: varicoceal 12/2023 Fathered children prior relationship: No Partner has had: Semen analysis, Evaluation by urologist, Surgery on bladder, testicles, penis, or prior groin hernia repairs, Cigarette use, Marijuana use, Regular hot tub use Partner had fever in the last 4 months: No Partner has [facility] medical chart: Yes Partner had prior fertility testing or treatment elsewhere: Yes Semen analysis: azospermic Assessment and Plan 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 rates discussed and use of meds vs natural cycle was discussed. Given her periods are regular I would recommend timed IUI for now and hol doff on the HSG for three cycles. They will meet with COATING MACHINE OPERATOR HELPER to review the IUI checklist and sign consents. I spent a total of 45 minutes on the date of the service which included preparing to see the patient, lvtm-[id number]-[id number] patient care, completing clinical documentation, counseling and educating the patient/family/caregiver, and ordering medications, tests, or procedures. Ignacio Guy MD [facility] 02-28-2024 History of Presen t illness Narrative Images from the original note were not included. REPRODUCTIVE ENDOCRINOLOGY AND INFERTILITY NEW PATIENT CLINIC NOTE SERVICE DATE: 02/28/2024 SERVICE TIME: 2:17 PM NAME: Jaz Sanders HISTORY OF PRESENT ILLNESS Jaz Sanders is a 28 year old No obstetric history on file. female with infertility for 8 years. They becames aware there was an issue with the sperm one year ago. She took femara for 4 cycles before they were aware that he has essentially azospermia. Then he saw Dr Singleton and took clomid. He had varicocele repair later. Here to discuss use of donor sperm. Pt had gastric sleeve surgery in apr 2020 and lost 225 lbs and her periods have normalized since that time. 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 Menstrual cycle pattern: Regular periods (25-34 days in length) Cycle length (days): 25-27 Days of bleedin-5 OPK use: Yes, able to detect Dysmenorrhea: Rarely Dyspareunia: No STI history: None Last Pap Smear Date: 02/20/24 Last pap outcome: Normal History of abnormal PAP: No, all prior PAP smears have been normal Procedure for abnormal pap smear: None Fertility Evaluations and Treatments: Eval Checklist Results Date Comments HSG Hysteroscopy Laparoscopy [facility] SIS Semen Analysis Ultrasound Other (See comments) LABS/IMAGING: Last scan was in Mar 2022, but not in these records. Pt states she thinks it was normal. PAST MEDICAL HISTORY Diagnosis Date Anemia Anxiety state Bipolar 1 disorder (HCC) Complication of anesthesia Hypothyroid Irregular menses Thyroid disease PAST SURGICAL HISTORY Procedure Laterality Date PAST SURGICAL HISTORY OF shoulder surgery REMOVAL GALLBLADDER 2015 FAMILY HISTORY Problem Relation Age of Onset other (HTN) Maternal Grandfather Diabetes Maternal Grandfather Current Outpatient Medications Medication Sig naltrexone 50 mg tablet Take 2 tablets by mouth two times a day. acetaminophen (TYLENOL) 500 mg tablet Take 500 mg by mouth every 8 hours as needed for pain. busPIRone (BUSPAR) 15 mg tablet Take 15 mg by mouth two times a day. levothyroxine 50 mcg cap Take 50 mcg by mouth every morning. lansoprazole (PREVACID) 30 mg capsule Take 30 mg by mouth once daily. lamoTRIgine (LAMICTAL) 200 mg tablet Take 200 mg by mouth once daily. Polysaccharide Iron Complex (PRO FE) 180 mg iron cap Take 2 capsules by mouth two times a day. docusate sodium (COLACE) 100 mg capsule Take 100 mg by mouth two times a day as needed for constipation. QUEtiapine (SEROQUEL) 25 mg tablet Take 25 mg by mouth daily at bedtime. No current facility-administered medications for this visit. Allergies As of Date: 02/28/2024 (Not on File) Fully Assessed 02/28/2024 Partner History Both patient and partner give permission to discuss test results and medication information with the other. Partner gives permission to access EMR. 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 ?: Yes Years together: 8 years Do they have children together?: No Any other Previous Pregnancies?: No Number of cigarettes smoked daily: >10 Marijuana use: Yes, daily Number of alcoholic beverages: Noneper week Pertinent Surgical Hx: varicoceal 12/2023 Fathered children prior relationship: No Partner has had: Semen analysis, Evaluation by urologist, Surgery on bladder, testicles, penis, or prior groin hernia repairs, Cigarette use, Marijuana use, Regular hot tub use Partner had fever in the last 4 months: No Partner has [facility] medical chart: Yes Partner had prior fertility testing or treatment elsewhere: Yes Semen analysis: azospermic Assessment and Plan 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 rates discussed and use of meds vs natural cycle was discussed. Given her periods are regular I would recommend timed IUI for now and hol doff on the HSG for three cycles. They will meet with COATING MACHINE OPERATOR HELPER to review the IUI checklist and sign consents. I spent a total of 45 minutes on the date of the service which included preparing to see the patient, yqcg-gs-zisq patient care, completing clinical documentation, counseling and educating the patient/family/caregiver, and ordering medications, tests, or procedures. Ignacio Guy MD documented in this encounter [facility] 02-27-2024 Evaluation note Diagnosis Onset Date Resolution Degenerative superior labral cbnhxiwv-bc-ayqnpwmfu (SLAP) tear of right matthias acute Novembe r 2023 2:25pm Laxity of ligament acute Novemb er 2023 2:25pm Multidirectional instability of glenohumeral joint acute February 2:25pm Other instability, right shoulder acute February 26, 2 024 2:25pm Right carpal tunnel syndrome acute February 26, 2 024 2:25pm Status post arthroscopy of right shoulder acute February 27, 2024 2:25pm Status post surgery noneactive Novem wenceslao 2023 2:25pm Degenerative superior labral ahrynttg-lu-rqaolpmbd (SLAP) tear of right matthias acute April 23, 2024 2:29pm Laxity of ligament acute Melvin saunders 2024 2:29pm Multidirectional instability of glenohumeral joint acute April 23, 2024 2:29pm Other instability, right shoulder acute April 23 2:29pm Right carpal tunnel syndrome acute April 23 2:29pm Status post arthroscopy of right shoulder acute April 23, 2 025 2:29pm [facility] Work Phone: 1(454) 204-497011-11-2024 Evaluation note* Diagnosis Onset Date Resolution Status Admit Date Degenerative superior labral ztqdiisn-wo-oncyicmxm (SLAP) tear of right matthias acute February 27, 2024 2:25pm Laxity of ligament acute Novemb er 2023 2:25pm Multidirectional instability of glenohumeral joint acute February 162023 2:25pm Other instability, right shoulder acute February 26, 2 024 2:25pm Right carpal tunnel syndrome acute February 27, 2024 2:25pm Status post arthroscopy of right shoulder acute February 26, 2 024 2:25pm Status post surgery noneactive Novem wenceslao 2023 2:25pm Degenerative superior labral oosawzzc-xx-thqbggqrm (SLAP) tear of right matthias acute April 23, 2 025 2:29pm Laxity of ligament acute 2024 2:29pm Multidirectional instability of glenohumeral joint acute April 2:29pm Other instability, right shoulder acute April 23 2:29pm Right carpal tunnel syndrome acute April 23, 2024 2:29pm Status post arthroscopy of right shoulder acute April 23 2:29pm Acute urticaria acute April 262024 8:29am Hypothyroid acute April 26, 2024 8:29am Other chronic pain acute 2024 8:29am [facility] Work Phone: 1(779) 949-576211-04-2024 History of Present illness Narrative* Marsha Aisf MA - 02/20/2024 2:50 PM EST Reason for Appointment: Patient ID: Jaz Sanders is a 28 y.o. female who presents for Gynecologic Exam Patient presents today for Annual Exam. MEDICATIONS Current Outpatient Medications Medication Instructions busPIRone (Buspar) 15 MG tablet 1 tablet, Oral, 3 times daily PRN docusate sodium (Colace) 100 MG capsule Every 24 hours ferrous sulfate 325 (65 Fe) MG tablet Every 24 hours LaMICtal 200 MG tablet 1.5 tabs lansoprazole (PREVACID) 30 mg, Oral, Daily naltrexone (Depade) 50 MG tablet Every 12 hours QUEtiapine (SEROQUEL) 25 mg, Oral, Nightly Strattera 40 MG capsule Every 24 hours Xanax 0.5 MG tablet As needed ALLERGIES Allergies Allergen Reactions Nsaids Unknown Patient had gastric bypass surgery in April 2020. PROBLEMS Active Ambulatory Problems Diagnosis Date Noted Anovulation 11/28/2023 Resolved Ambulatory Problems Diagnosis Date Noted No Resolved Ambulatory Problems Past Medical History: Diagnosis Date Anemia Dysmenorrhea Female infertility History of transfusion Hypothyroidism (CMS/HCC) Irregular menses Ovarian cyst Polycystic ovary syndrome Thyroid disease (CMS/HCC) Urinary incontinence Urinary tract infection HISTORY PAST MEDICAL HISTORY SOCIAL HISTORY Past Medical History: Diagnosis Date Anemia hospitalization history (06/10/22) Dysmenorrhea Female infertility History of transfusion Hypothyroidism (CMS/HCC) Irregular menses Ovarian cyst Polycystic ovary syndrome Thyroid disease (CMS/HCC) Urinary incontinence Urinary tract infection Social History Tobacco Use Smoking status: Every Day Current packs/day: 0.50 Average packs/day: 0.5 packs/day for 3.0 years (1.5 ttl pk-yrs) Types: Cigarettes Smokeless tobacco: Never Substance Use Topics Alcohol use: Not Currently Comment: caffeine: 1-2 cups per day tea Drug use: Never FAMILY HISTORY Family History Problem Relation Name Age of Onset Skin cancer Mother Julieta velarde Obesity Mother Julieta velarde Other (Thyroid Disorder) Mother Julieta velarde Thyroid disease Mother Julieta velarde Diabetes Father Delbert velarde Thyroid disease Father Delbert velarde Diabetes Paternal Grandfather Ayaan Easton SURGICAL HISTORY Past Surgical History: Procedure Laterality Date ABDOMINAL SURGERY May 06 2020 BARIATRIC SURGERY 05/06/2020 Gastric Sleeve bypass CHOLECYSTECTOMY 11/2015 NASAL ENDOSCOPY Bilateral 10/15/2019 with septal button REVIEW OF SYSTEMS Review of Systems: Review of Systems Constitutional: Negative. HENT: Negative. Eyes: Negative. Respiratory: Negative. Cardiovascular: Negative. Gastrointestinal: Negative. Genitourinary: Negative. Musculoskeletal: Negative. Skin: Negative. Neurological: Negative. All other systems reviewed and are negative. Hematological: Negative. Endocrine: Negative. Allergic/Immunologic: Negative. OBJECTIVE Objective: Physical Exam Constitutional: Appearance: Normal appearance. She is well-developed. Genitourinary: Vulva normal. Right Adnexa: not tender and no mass present. Left Adnexa: not tender and no mass present. No cervical discharge. Breasts: Breasts are soft. Right: Normal. Left: Normal. HENT: Head: Normocephalic. Nose: Nose normal. Mouth/Throat: Mouth: Mucous membranes are moist. Cardiovascular: Rate and Rhythm: Normal rate and regular rhythm. Pulmonary: Effort: Pulmonary effort is normal. Breath sounds: Normal breath sounds. Abdominal: General: Bowel sounds are normal. There is no distension. Palpations: Abdomen is soft. Tenderness: There is no abdominal tenderness. There is no guarding or rebound. Musculoskeletal: General: No swelling. Normal range of motion. Cervical back: Normal range of motion. Right lower leg: No edema. Left lower leg: No edema. Neurological: General: No focal deficit present. Mental Status: She is alert and oriented to person, place, and time. Skin: General: Skin is warm and dry. Psychiatric: Mood and Affect: Mood normal. Behavior: Behavior normal. Vitals and nursing note reviewed. Exam conducted with a circulation librarian present. Vitals: Estimated body mass index is 30.13 kg/m as calculated from the following: Height as of 11/28/23: 5' 10 . Weight as of 11/28/23: 210 lb. BP: No LMP recorded. ASSESSMENT & PLAN ICD-10-CM 1. Well woman exam with routine gynecological exam Z01.419 Pap Smear Annual Exam: Patient presents today for an annual exam. Patient states she is doing well and has complaints of irregular periods. Pt will be going to see fertility this month and requested her lab work so she cantake it up with her. Lab results were given to patient. Pap was obtained without difficulty. No orders of the defined types were placed in this encounter. Follow Up: Patient is to return in one year for annual unless needed otherwise. Documented by Marsha Asif MA on behalf of: TRENT Engle documented in this encounterB[facility] [id number] Note [id number]#1.00[facility]09-03-2024 Evaluation note* Diagnosis Onset Date Resolution Status Admit Date Degenerative superior labral voddzerw-je-cpflttuxl (SLAP) tear of right matthias acute December 20, 2023 10:11am Laxity of ligament acute Septem wenceslao 2023 10:11am Multidirectional instability of glenohumeral joint acute December 20, 2023 10:11am Other instability, right shoulder acute December 19 10:11am Right carpal tunnel syndrome acute December 20, 2023 10:11am Status post arthroscopy of right shoulder acute December 19 10:11am Status post surgery noneactive Septe mber 2023 10:11am Degenerative superior labral minfdlax-bs-evgpniuqm (SLAP) tear of right matthias acute January 16 11:58am Laxity of ligament acute Octobe r 2023 11:58am Multidirectional instability of glenohumeral joint acute January 11:58am Other instability, right shoulder acute January 16 11:58am Right carpal tunnel syndrome acute January 17, 2024 11:58am Status post arthroscopy of right shoulder acute January 16 11:58am Status post surgery noneactive Octob er 2023 11:58am Degenerative superior labral okmxwwyg-my-chbedxudy (SLAP) tear of right matthias acute February 27, 2024 2:25pm Laxity of ligament acute Novemb er 2023 2:25pm Multidirectional instability of glenohumeral joint acute February 162023 2:25pm Other instability, right shoulder acute February 26 024 2:25pm Right carpal tunnel syndrome acute February 27, 2024 2:25pm Status post arthroscopy of right shoulder acute February 26 024 2:25pm Status post surgery noneactive Novem wenceslao 2023 2:25pm [facility] Work Phone: 1(982) 290-922207-17-2024 NoteEducation Materials Orthopedics Musculoskeletal Pain Musculoskeletal pain refers to aches and pains in your bones, joints, muscles, and the tissues thatsurround them. This pain can occur in any part of the body. It can last for a short time (acute) ora long time (chronic). A physical exam, lab tests, and imaging studies may be done to find the cause of your musculoskeletal pain. Follow these instructions at home: Lifestyle ? Try to control or lower your stress levels. Stress increases muscle tension and can worsen musculoskeletal pain. It is important to recognize when you are anxious or stressed and learn ways to manage it. This may include: ? Meditation or yoga. ? Cognitive or behavioral therapy. ? Acupuncture or massage therapy. ? You may continue all activities unless the activities cause more pain. When the pain gets better,slowly resume your normal activities. Gradually increase the intensity and duration of your activities or exercise. Managing pain, stiffness, and swelling ? Treatment may include medicines for pain and inflammation that are taken by mouth or applied to the skin. Take cdpw-bmj-coxufvx and prescription medicines only as told by your health care provider. ? When your pain is severe, bed rest may be helpful. Lie or sit in any position that is comfortable, but get out of bed and walk around at least every couple of hours. ? If directed, apply heat to the affected area as often as told by your health care provider. Use the heat source that your health care provider recommends, such as a moist heat pack or a heating pad. ? Place a towel between your skin and the heat source. ? Leave the heat on for 20?30 minutes. ? Remove the heat if your skin turns bright red. This is especially important if you are unable to feel pain, heat, or cold. You may have a greater risk of getting burned. ? If directed, put ice on the painful area. To do this: ? Put ice in a plastic bag. ? Place a towel between your skin and the bag. ? Leave the ice on for 20 minutes, 2?3 times a day. ? Remove the ice if your skin turns bright red. This is very important. If you cannot feel pain, heat, or cold, you have a greater risk of damage to the area. General instructions ? Your health care provider may recommend that you see a physical therapist. This person can help you come up with a safe exercise program. ? If told by your health care provider, do physical therapy exercises to improve movement and strength in the affected area. ? Keep all follow-up visits. This is important. This includes any physical therapy visits. Contact a health care provider if: ? Your pain gets worse. ? Medicines do not help ease your pain. ? You cannot use the part of your body that hurts, such as your arm, leg, or neck. ? You have trouble sleeping. ? You have trouble doing your normal activities. Get help right away if: ? You have a new injury and your pain is worse or different. ? You feel numb or you have tingling in the painful area. Summary ? Musculoskeletal pain refers to aches and pains in your bones, joints, muscles, and the tissues that surround them. ? This pain can occur in any part of the body. ? Your health care provider may recommend that you see a physical therapist. This person can help you come up with a safe exercise program. Do any exercises as told by your physical therapist. ? Lower your stress level. Stress can worsen musculoskeletal pain. Ways to lower stress may includemeditation, yoga, cognitive or behavioral therapy, acupuncture, and massage therapy. This information is not intended to replace advice given to you by your health care provider. Make sure you discuss any questions you have with your health care provider. Document Revised: 08/07/2020 Document Reviewed: 07/16/2020 [employer] Patient Education ? 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 Her symptoms are starting to return. We discussed she should continue physical therapy or mimic those exercises at home as well. We discussed that because she got relief from therapy, she does not need surgery at this time. We will give her another order for therapy and stressed the importance of doing these exercises at home. Advised she can take Aleve or Meloxicam, however she is on fertility treatments and may not be able to take them at this time. She can follow up as needed. Apr, Instability of right shoulder joint (ICD-10 - M25.311) Apr, Laxity, ligament (ICD-10 - M24.20) Apr, Acute pain of right shoulder (ICD-10 - M25.511) [facility] Other 01-05-2024 Evaluation note* Encounter Date Diagnosis Assessment Notes Treatment Notes Treatment Clinical Notes Apr, Other iron deficiency anemia (ICD-10 - D50.8) [facility] Other 12-28-2023 Evaluation note* Encounter Date Diagnosis Assessment Notes Treatment Notes Treatment Clinical Notes Mar, Vitamin D deficiency (ICD-10 - E55.9) [facility] Other 10-23-2023 Evaluation note* Encounter Date Diagnosis Assessment Notes Treatment Notes Treatment Clinical Notes Jan, Tear of right glenoid labrum, initial encounter (ICD-10 - S43.431A) MRI reviewed with the patient and she has an inferior labrum tear and because of her continued ongoing pain consistent with labrum tear pain I would recommend seeing orthopedic surgery to discuss surgical intervention. Patient has not responded significantly to conservative treatments and given her young age and activity level surgical intervention would be an option for her that needs to be explored. Patient in agreement for this and referral was given. [facility] Other 09-21-2023 Evaluation note* Encounter Date Diagnosis Assessment Notes Treatment Notes Treatment Clinical Notes Dec, Other iron deficiency anemia (ICD-10 - D50.8) Dec, Low folic acid (ICD-10 - E53.8) [facility] Other 09-11-2023 Evaluation note* Encounter Date Diagnosis Assessment Notes Treatment Notes Treatment Clinical Notes Dec, Internal derangement of right shoulder (ICD-10 - M24.811) Patient's right shoulder today on examination shows no concerns for rotator cuff tear but there is concern for labrum injury. She has not responded with long-term pain relief from an injection and she is not significantly improved from rehab exercises that she has been doing over the last couple of months. Because of this an MR arthrogram will be obtained and she will be reevaluated after the arthrogram to review the imaging results with her. For now patient is to do activities that she can and continue to do the exercises for strength. [facility] Other 07-06-2023 Evaluation note* Encounter Date Diagnosis Assessment Notes Treatment Notes Treatment Clinical Notes Oct, Iron deficiency (ICD-10 - E61.1) [facility] Other 06-26-2023 Evaluation note* Encounter Date Diagnosis Assessment Notes Treatment Notes Treatment Clinical Notes Sep, Subacromial bursitis of right shoulder joint (ICD-10 - M75.51) Explained to patient that based on her history and examination she has subacromial bursitis with rotator cuff impingement. This is causing the pain in the shoulder and then she is changing the biomechanics of how she moves her shoulders because she is active at work which is then contributing to muscular tightness in the trapezius and the rhomboids. This muscle tightness is then causing nerve pinching which is causing some radicular symptoms down the arm. I recommended doing a steroid injection into the subacromial bursa given the fact that she has done other conservative and prescription strength treatment options which have not provided her with long-lasting benefit. She is to wait 2 to 3 days and then start rehab exercises. I did offer physical therapy and she would like to think about this but in the meantime rehab exercise handouts and therapy bands were given to her. She is to let me know if she would like formal physical therapy on top of this and she is to follow-up if not resolving as expected within the next 4 to 6 weeks. Sep, Strain of right trapezius muscle, initial encounter (ICD-10 - S46.811A) Instructed patient that she is overutilizing her trapezius which is contributing to her radicular symptoms and causing pain down the arm. [facility] Other 06-15-2023 Evaluation note* Encounter Date Diagnosis Assessment Notes Treatment Notes Treatment Clinical Notes Sep, Arthritis of shoulder (ICD-10 - M19.019) right - minimal XR done, and this did show minimal astrhitis of the AC joint. , discussed final report c pt while in clinic. RICE therapy. otc tylenol prn for pain. ice/warm compresses as directed. Direcetred on exercises and printed a handout and demonstrated in office. Will refer to sports medicine for possible injection. immediate eval if warning symptoms of neurovascular compromise. otherwise follow up if new/worsening symptoms. pt verbalizes understanding and agrees c tx plan. [facility] Other 05-10-2023 Evaluation note* Encounter Date Diagnosis Assessment Notes Treatment Notes Treatment Clinical Notes August, Acute pain of right shoulder (ICD-10 - M25.511) Discussed treatment options icluding steriod burst, ice, and Tylenol. Take medication as prescribed. Complete all doses of medication, even if sx are no longer present. Pt instructed to take medication with food. Informed pt that medication may make pt feel jittery, hungry and give you extra energy. Medication may also increase blood pressure and increase blood sugar. Pt also advised not to take NSAIDs while using steroids.Directed on use of prednisone. Discussed with patient to use ice for 20 minute intervals 3-4 times per day. May need referral to PT if no improvement. Educated patient on strenghtening exercises to perform 2-3 times per day. May do Massage therapy. Discussed with patient that that if symptoms worsen, change or show no improvement to follow-up if no improvement. She verbalizes understnading. [facility] Other 05-05-2023 Evaluation note* Encounter Date Diagnosis Assessment Notes Treatment Notes Treatment Clinical Notes August, Acquired hypothyroidism (ICD-10 - E03.9) Discussed with pt symptoms and lab resutls. Discussed treatment and evaluation. Referral placed to Dr. Sinclair. 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 Patient is comfortable at rest. States that she feel significantly better since she came in. She started having menstrual cyclelast night. States that she had to use tampon due to heavy bleeding. Exam Physical Exam Vital Signs: Temp Pulse Resp BP Pulse Ox O2 Del Method 98.2 F 62 20 106/63 99 Room Air 06/11/22 12:00 06/11/22 12:00 06/11/22 12:00 06/11/22 12:00 06/11/22 12:00 06/11/22 12:00 Narrative: General: Awake, alert, oriented x3 not in acute distress HEENT: Normocephalic, atraumatic, PERRLA, pallor noted Cardiovascular: Regular rate and rhythm , S1-S2 heard, no murmurs or gallops Lungs: No wheezing or rhonchi heard Gastrointestinal: Soft, nontender, bowel sounds heard Extremities: No edema Neurological: no sensory or motor deficit Skin: Dry and warm, no rashes or lesions Psych: Normal mood and affect Objective Lab Results 06/11/22 04:29 06/10/22 14:51 Microbiology Results Microbiology 06/10/22 15:50 Stool Stool Occult Blood (CARLOS) - Final Meds Allergies and Active Meds Allergies NSAIDS (Non-Steroidal Anti-Inflamma Adverse Reaction (Verified 04/10/22 18:18) Unknown Reaction Active Meds: Active Medications Generic Name Dose Route Start Last Admin Trade Name Amy PRN Reason Stop Dose Admin Acetaminophen 650 mg 06/10/22 17:33 Acetaminophen 325 Mg Tablet PO 06/10/23 17:32 Q6HR PRN Pain Scale 1 - 3 or fever Alprazolam 0.5 mg 06/10/22 17:35 Alprazolam 0.5 Mg Tablet PO 12/07/22 17:34 DAILY PRN Anxiety Buspirone HCl 15 mg 06/10/22 22:00 06/11/22 08:48 Buspirone 15 Mg Tablet PO 06/10/23 21:59 15 mg TID KEYONA Administration Cyclobenzaprine HCl 10 mg 06/10/22 22:00 06/10/22 21:18 Cyclobenzaprine 10 Mg Tablet PO 06/10/23 21:59 10 mg HS KEYONA Administration Sodium Chloride 500 mls @ 20 mls/hr 06/10/22 15:23 0.9 % Sodium Chloride IV 06/11/22 15:22 PROTOCOL PRN BLOOD TRANSFUSION Ferric Sodium Gluconate 270 mls @ 135 mls/hr 06/11/22 09:00 06/11/22 09:13 Complex 250 mg/ Sodium IV 06/11/23 08:59 135 mls/hr Chloride QAM KEYONA Administration Sodium Chloride 500 mls @ 20 mls/hr 06/11/22 13:03 0.9 % Sodium Chloride IV 06/12/22 13:02 PROTOCOL PRN BLOOD TRANSFUSION Lamotrigine 200 mg 06/11/22 09:00 06/11/22 08:48 Lamotrigine 100 Mg Tablet PO 06/11/23 08:59 200 mg DAILY KEYONA Administration Mupirocin 1 applic 06/10/22 17:35 Mupirocin 2% Cr 15 Gm Tube TOPICAL 06/10/23 17:34 BID PRN GENITAL BOILS Pantoprazole Sodium 40 mg 06/11/22 09:00 06/11/22 08:48 Pantoprazole 40 Mg Tablet. PO 06/11/23 08:59 40 mg DAILY KEYONA Administration Quetiapine Fumarate 25 mg 06/10/22 22:00 06/10/22 21:18 Quetiapine Fumarate 25 Mg Tablet PO 06/10/23 21:59 25 mg HS KEYONA Administration Sodium Chloride 0 ml 06/10/22 14:23 06/10/22 16:32 Sodium Chloride 0.9 % 10 Ml Syringe IV-PUSH 06/10/23 14:22 10 ml PRN PRN Administration Flush A&P - Hospitalist Assessment/Plan (1) Anemia: (2) Iron deficiency anemia: (3) Anxiety and depression: (4) Bipolar disorder: Plan Patient denies any complaints She is hemodynamically stable, saturating well on room air Hemoglobin 8, received 2 units of PRBC. Started having menstrual cycle last night with heavy bleeding. Will transfuse 1 more unit of PRBC. Patient does not want to stay overnight. She is anxious to be discharged home. IV iron 250 mg transfused. We will check CBC again in 5 days. Patient has an appointment with her MEDICATION CARE MANAGER next week. Educated her to go to ED if she continues to have heavy bleeding with symptoms, she verbalized understanding. We will send patient home on iron supplements and docusate as needed for constipation Patient is being discharged today. Documented By: Farhad Gallego MD 06/11/22 1306 Signed By: <Electronically signed by Farhad Gallego MD> 06/11/22 1316 [facility] Work Phone: 1([phone]) 164-916702-23-2023 History and physical note Author Fahrad Gallego [facility] June 10, 2022 6:28pm Note Date/Time June 10, 2022 5:39pm [facility] [address] [place] [address] Hospitalist H&P Signed Patient: Jaz Sanders MR#: [id number] : 1995 Acct:[id number] Age/Sex: 27 / F Adm Date: 3 Loc: Room: [address] [place] [address] Type: ADM INOo Attending Dr: Farhad Gallego MD Copies to: MD Amanda Correa, SECURITY INSTALLER, POTATO INSPECTOR~ HPI DATE OF EXAMINATION: 06/10/22 CHIEF COMPLAINT: weakness, sob HISTORY OF PRESENT ILLNESS: Patient is a 27-year-old lady past medical history of gastric sleeve surgery, anxiety and depression, bipolar was sent to the emergency department by her PCP after she was found to have severe anemia on routine labs. Patient noted that she had severe vaginal bleeding from April 02 to April 20 and was given progesterone at the time to control bleeding. She has not had any menstrual cycle since then. States that she is to have dizziness upon standing from sitting position which got worse lately. She also felt short of breath with moderate exertion lately. In the ED CBC was done again. Hemoglobin 7.3. Stoolfor occult blood negative. Patient denies any nausea, vomiting, abdominal pain. She smokes but does not drink alcohol. Review of Systems Review of Systems All other systems reviewed & are negative unless noted below or in HPI PMFSH Vaccinated for COVID-19?: Yes Medical History (Updated 06/10/22 @ 18:24 by Jean Jett PA-C) Anxiety and depression Bipolar disorder Hypothyroid Last menstrual period (LMP) > 10 days ago March 5th to 7th Morbid obesity with BMI of 50.0-59.9, adult OAB (overactive bladder) Vitamin D deficiency Surgical History H/O gastric sleeve History of esophagogastroduodenoscopy (EGD) History of laparoscopic cholecystectomy 2014 History of nasal surgery NASAL PLUG PLACED Family History Mother Depression OAB (overactive bladder) Father Hypertension OAB (overactive bladder) Sister OAB (overactive bladder) Other Hypothyroidism Social History Smoking Status: Current every day smoker Tobacco Type: cigarettes Substance Use Type: Marijuana Substance Abuse Comment: weekly marijuana user Meds Medications and Allergies Allergies NSAIDS (Non-Steroidal Anti-Inflamma Adverse Reaction (Verified 04/10/22 18:18) Unknown Reaction Home Medications lansoprazole 30 mg capsule,delayed release 30 mg PO DAILY GERD 10/08/19 [History Confirmed 06/10/22] lamotrigine 200 mg tablet 200 mg PO DAILY 04/10/22 [History Confirmed 06/10/22] quetiapine 25 mg tablet 25 mg PO HS 04/10/22 [History Confirmed 06/10/22] alprazolam 0.5 mg tablet (Xanax) 0.5 mg PO DAILY PRN Anxiety 06/10/22 [History Confirmed 06/10/22] buspirone 15 mg tablet 15 mg PO TID 06/10/22 [History Confirmed 06/10/22] cyclobenzaprine 10 mg tablet 10 mg PO HS 06/10/22 [History Confirmed 06/10/22] mupirocin calcium 2 % topical cream 1 applic topical BID PRN GENITAL BOILS 06/10/22 [History Confirmed 06/10/22] Exam Physical Exam Vital Signs: Temp Pulse Resp BP Pulse Ox O2 Del Method 98.8 F 60 14 115/55 L 100 Room Air 06/10/22 17:18 06/10/22 17:18 06/10/22 17:18 06/10/22 17:18 06/10/22 17:18 06/10/22 16:30 Narrative: General: Awake, alert, oriented x3 not in acute distress HEENT: Normocephalic, atraumatic, PERRLA, pallor noted Cardiovascular: Regular rate and rhythm , S1-S2 heard, no murmurs or gallops Lungs: No wheezing or rhonchi heard Gastrointestinal: Soft, nontender, bowel sounds heard Extremities: No edema Neurological: no sensory or motor deficit Skin: Dry and warm, no rashes or lesions Psych: Normal mood and affect Results Lab Results Labs: Laboratory Last Values Corrected WBC 5.3 X10E3/uL (3.8-11.6) 06/10/22 14:51 Uncorrected WBC Count 5.3 x10E3/uL (3.8-11.6) 06/10/22 14:51 RBC 3.69 X10E6/uL (3.60-5.00) 06/10/22 14:51 Hgb 7.3 g/dL (11.8-15.4) L 06/10/22 14:51 Hct 23.8 % (34.0-46.4) L 06/10/22 14:51 MCV 64.5 fl (80-100) L 06/10/22 14:51 MCH 19.7 pg (24.7-34.3) L 06/10/22 14:51 MCHC 30.6 g/dL (32.0-35.0) L 06/10/22 14:51 RDW 24.6 % (11.9-15.3) H 06/10/22 14:51 Plt Count 202 x10E3/uL (150-450) 06/10/22 14:51 MPV 8.3 fl (6.3-10.7) 06/10/22 14:51 Neut % (Auto) 45.1 % (.) 06/10/22 14:51 Lymph % (Auto) 41.3 % (.) 06/10/22 14:51 [place] % (Auto) 6.8 % (.) 06/10/22 14:51 Eos % (Auto) 5.0 % (.) 06/10/22 14:51 Baso % (Auto) 1.8 % (.) 06/10/22 14:51 Nucleat RBC Rel Count 0.1 /100 WBC (0-0.5) 06/10/22 14:51 Neut # (Auto) 2.4 x10E3/uL (1.8-7.7) 06/10/22 14:51 Lymph # (Auto) 2.2 x10E3/uL (1.00-4.8) 06/10/22 14:51 [place] # (Auto) 0.4 x10E3/uL (0.0-0.8) 06/10/22 14:51 Eos # (Auto) 0.3 x10E3/uL (0.0-0.45) 06/10/22 14:51 Baso # (Auto) 0.1 x10E3/uL (0.0-0.2) 06/10/22 14:51 Monocyte Dist Width 17.54 % (0.00-20.00) 06/10/22 14:51 Platelet Estimate Normal (Normal) 06/10/22 14:51 Plt Morphology Comment Normal (Normal) 06/10/22 14:51 RBC Morphology N/A 06/10/22 14:51 Polychromasia Slight 06/10/22 14:51 Hypochromasia Marked 06/10/22 14:51 Poikilocytosis Slight 06/10/22 14:51 Anisocytosis Marked 06/10/22 14:51 Microcytosis Marked 06/10/22 14:51 Target Cells Slight 06/10/22 14:51 Tear Drop Cells Slight 06/10/22 14:51 Ovalocytes Slight 06/10/22 14:51 PT 12.9 Seconds (9.0-12.9) 06/10/22 14:51 INR 1.1 06/10/22 14:51 APTT 29.8 Seconds (25.1-36.5) 06/10/22 14:51 PHA Creatinine Clear 149.49 06/10/22 14:51 Sodium 136 mmol/L (136-146) 06/10/22 14:51 Potassium 4.1 mmol/L (3.5-5.1) 06/10/22 14:51 Chloride 106 mmol/L (95-114) 06/10/22 14:51 Carbon Dioxide 23.3 mmol/L (22.0-30.0) 06/10/22 14:51 Anion Gap 10.8 mEq/L (6.0-15.0) 06/10/22 14:51 BUN 9 mg/dL (9-23) 06/10/22 14:51 Creatinine 0.71 mg/dL (0.44-1.03) 06/10/22 14:51 Est GFR ( Amer) > 60 mL/Min 06/10/22 14:51 Est GFR (Non-Af Amer) > 60 mL/Min 06/10/22 14:51 Glucose 94 mg/dL (70-100) 06/10/22 14:51 Calcium 8.6 mg/dL (8.2-10.2) 06/10/22 14:51 Magnesium 1.9 mg/dL (1.6-2.6) 06/10/22 14:51 Iron 25 ug/dL (40-150) L 06/10/22 14:51 TIBC 532 ug/dL (255-450) H 06/10/22 14:51 Iron Saturation 4.7 % (20-50) L 06/10/22 14:51 Transferrin 380 mg/dL (180-380) 06/10/22 14:51 Total Creatine Kinase 100 U/L (22-269) 06/10/22 14:51 Troponin I High Sens < 3 pg/mL (0-15) 06/10/22 14:51 B-Natriuretic Peptide 23.0 pg/mL (5-100) 06/10/22 14:51 Urine Color Yellow (Yellow) 06/10/22 15:40 Urine Appearance Clear (Clear) 06/10/22 15:40 Urine pH 5.5 (5.0-9.0) 06/10/22 15:40 Ur Specific [place] 1.010 (1.001-1.030) 06/10/22 15:40 Urine Protein Negative mg/dL (Negative) 06/10/22 15:40 Urine Glucose (UA) Normal mg/dL (Normal) 06/10/22 15:40 Urine Ketones Negative (Negative) 06/10/22 15:40 Urine Occult Blood Negative (Negative) 06/10/22 15:40 Urine Nitrite Negative (Negative) 06/10/22 15:40 Urine Bilirubin Negative (Negative) 06/10/22 15:40 Urine Urobilinogen Normal mg/dL (Normal) 06/10/22 15:40 Ur Leukocyte Esterase Negative (Negative) 06/10/22 15:40 Urine HCG, Qual Negative 06/10/22 15:40 Blood Type A Positive 06/10/22 14:51 Blood Type Recheck A Positive 06/10/22 15:54 Antibody Screen Negative 06/10/22 14:51 Crossmatch (AHG) See Detail 06/10/22 14:51 Microbiology Results Micro: Microbiology - Results from entire visit 06/10/22 15:50 Stool Stool Occult Blood (CARLOS) - Final A&P - Hospitalist Assessment/Plan (1) Anemia: (2) Iron deficiency anemia: (3) Anxiety and depression: (4) Bipolar disorder: Plan Patient will be admitted to floor for further evaluation management She is hemodynamically stable, saturating well on room air Labs showed hemoglobin 7.3 with no leukocytosis with normal kidney functions. MCV 64.5 Iron panel showed iron deficiency Stool for occult blood negative 2 units of blood ordered in the ED, please transfuse We will order IV iron Continue home meds Fall precautions DVT prophylaxis CODE STATUS full code Documented By: Farhad Gallego MD 06/10/22 1730 Signed By: <Electronically signed by Farhad Gallego MD> 06/10/22 [address] [facility] Work Phone: [phone]) 640-909201-04-2023 Evaluation note* Encounter Date Diagnosis Assessment Notes Treatment Notes Treatment Clinical Notes Apr, Painful urination (ICD-10 - R30.9) The patient was seen today for ER/Urgent Care follow-up. All available records were reviewed and discussed with the patient. All new medications prescribed were reviewed. Any additional changes are noted above. Reviewed with pt that the urine diptstick, only showed large amount of blood no leucocylres, Will culture the urine and call with further recommendations. Also discussed ultrasound of the bladder and kidneys to evaluate for other causes of symptoms. pt agrees to plan of care. Apr, Other microscopic hematuria (ICD-10 - R31.29) Ordered Kidney and bladder ultrasound Apr, Menorrhagia with regular cycle (ICD-10 - N92.0) Pt has a follow-up Dr. Elder for bleeding. Keep appointment with Dr. Elder. Taggled Other 12-13-2022 Evaluation note* Encounter Date Diagnosis Assessment Notes Treatment Notes Treatment Clinical Notes Mar, Arthritis of shoulder (ICD-10 - M19.019) [facility]aggled Other 12-06-2022 Evaluation note* Encounter Date Diagnosis Assessment Notes Treatment Notes Treatment Clinical Notes Mar, Other chronic pain (ICD-10 - G89.29) Discussed symptoms will proceed with x-ray evaluation of the shoulder due to continued pain and no improvement with Lidoderm patches and steroid. RICE therapy. otc tylenol prn for pain. ice/warm compresses as directed. immediate eval if warning symptoms of neurovascular compromise. Will call with results of the x-ray with further recommendations otherwise follow up if new/worsening symptoms. pt verbalizes understanding and agrees with tx plan. Mar, Pain in right shoulder (ICD-10 - M25.511) Mar, Attention deficit hyperactivity disorder (ADHD), predominantly inattentive type (ICD-10 - F90.0) [facility] due to she is currently treating her for anxiety and depression. And she has discussed this with Julieta and she had offered her treatement for this. [facility]agg[facility] Other 11-30-2022 Evaluation note* Encounter Date Diagnosis Assessment Notes Treatment Notes Treatment Clinical Notes Feb, Gastroesophageal ref lux disease without esophagitis (ICD-10 - K21.9) Taggled Other 10-24-2022 Evaluation note* Encounter Date Diagnosis Assessment Notes Treatment Notes Treatment Clinical Notes Jan, Strain of right shoulder, initial encounter (ICD-10 - S46.911A) Discussed symptoms are most likely related to strain. RICE therapy.tylenol prn for pain. Lidoderm patches as directed. ice/warm compresses as directed. immediate eval if warning symptoms of neurovascular compromise. otherwise follow up if new/worsening symptoms. pt verbalizes understanding and agrees c tx plan. Jan, Lateral epicondylitis of right elbow (ICD-10 - M77.11) D Discussed with patient that symptoms and exam are consistent with lateral epicondylitis. Discussed treatment options icluding steriod burst, ice, and Tylenol. Take medication as prescribed. Complete all doses of medication, even if sx are no longer present. Pt instructed to take medication with food. Informed pt that medication may make pt feel jittery, hungry and give you extra energy. Medication may also increase blood pressure and increase blood sugar. Pt also advised not to take NSAIDs while using steroids.Directed on use of prednisone. Discussed with patient to use ice for 20 minute intervals 3-4 times per day. Educated patient on strenghtening exercises to perform 2-3 times per day. Also suggested to use a tennis elbow brace during working hours to exert pressue on the area. Discussed with patient that that if symptoms worsen, change or show no improvement to follow-up if no improvement. She verbalizes understnading Jan, Folliculitis (ICD-10 - L73.9) Discussed folliculitis vs hydrantative supprative. Discussed trial of Mupiricon ointment at the onset of symptoms. Discussed when to follow-up for further treatment. Pt would like to trial the ointment. Follow-up as needed. Taggled Other 05-11-2022 NoteEchocardiology Procedure Exam Date/Time Accession # Ordering Echo Transthoracic 08/25/2021 15:36 EDT [id number] Jay DAVEY, Samir Rivera CPT code 55281 Reason for Exam (Echo Transthoracic Complete) Bradycardia;Other (please specify) Report Patient Height: 71 in Patient Weight: 209 lb Blood Pressure: 115/66 1. LVIDd m(3.8-5.8cm)w(3.8-5.2cm) 5.7 cm 2. LVIDs m(2.1-3.9cm)w(2.2-3.5cm) 3.1 cm 3. IVSd m(0.6-1.0cm) 1.2 cm 4. LVPWd (0.6-1.0cm) 1.0 cm 5. LAs (2.7-4.0cm) 3.7 cm 6. LA Vol. Index (16-34 mL/m2) 26 mL/m2 7. AOd Root (3.0-3.4cm) 2.8 cm 8. AO Annulus (2.3-2.6cm) _ cm 9. AO Sinus of Valsalva (3.0-3.4cm) _ cm 10. AO Sinotubular Junction (2.6-2.9cm) _ cm 11. Ascending Aorta (2.7-3.0cm) _ cm 12. RVIDd (2.0-3.0cm) 3.5 cm 13. AoV Peak Gradient _ mmHg 14. AoV Mean Gradient _ mmHg 15. LVOT Diam _ cm INDICATIONS : Bradycardia. PROCEDURE : Two-dimensional echocardiogram with Doppler. M-MODE/2D/DOPPLER REPORT : 1. The patient appears to have normal LV size and function with an LVEF of 65%. 2. The right ventricle is mildly dilated with normal RV function. 3. Left atrium is normal. 4. Right atrium is normal. 5. The aortic valve is tricuspid and opens normally. No evidence of aortic stenosis or aortic insufficiency. 6. The mitral valve shows trivial mitral regurgitation. Normal diastolic function for age. 7. Pulmonary valve shows trivial pulmonary insufficiency. 8. Tricuspid valve shows mild tricuspid regurgitation with normal RVSP of 33 mm Hg. Echocardiology Report 9. Pericardium is normal. 10. Interatrial septum is intact. 11. Aorta is normal. SUMMARY/CONCLUSION : 1. Normal left ventricular size and function with a left ventricular ejection fraction of 65%. 2. Mild right ventricular enlargement with normal RV function. 3. Normal diastolic function for age. 4. Mild tricuspid regurgitation with normal RVSP of 33 mm Hg. 5. No old echocardiograms for comparison. FINAL REPORT Signed (Electronic Signature): 08/26/2021 8:49 am Signed by: Robin Salazar MD Transcribed by: kerry Technologist: [facility]04-21-2022 Note Echocardiology Procedure Exam Date/Time Accession # Ordering ECG Stress Exercise 08/06/2021 10:22 EDT [id number] Jay DAVEY, Samir Rivera CPT code 72419 Reason for Exam (ECG Stress Exercise) bradycardia;Other (please specify) Report INDICATION: Bradycardia. RESTING EKG: The patient has sinus bradycardia at a rate of 57 beats per minute, normal axis, normal intervals, no evidence of previous myocardial infarction. TREADMILL EKG: The patient exercised according to a César protocol for 9 minutes and 4 seconds achieving a maximum workload of 10.20 METS. Resting heart rate was 60 beats per minute and trell to a maximum of 169 beats per minute which represents 87% of the maximal age- predicted heart rate. Resting blood pressure was 134/89 and trell to a maximum of 172/67. Test was terminated due to the attainment of target heart rate. During exercise, the patient's heart rate increased as expected. The patient had no significant dynamic EKG changes to suggest ischemia. No anginal symptoms noted. No arrhythmias noted. CONCLUSIONS: Normal, adequate, treadmill electrocardiogram. Negative for ischemia by electro cardiographic criteria. No anginal symptoms noted. No arrhythmias noted. Appropriate blood pressure response to exercise. Below average exercise capacity for age. Test terminated due to the attainment of target heart rate. Patient tolerated procedure well. No complications. FINAL REPORT Signed (Electronic Signature): 08/06/2021 2:57 pm Signed by: Robin Salazar MD Transcribed by: nakul Technologist: [facility]03-31-2022 Evaluation note* Encounter Date Diagnosis Assessment Notes Treatment Notes Treatment Clinical Notes Jun, Acquired hypothyroidism (ICD-10 - E03.9) She is currently note on medication for this. Notes had her TSH drawn yestersay. This was reviewed and attached to chart was normal. Asymptomatic at this time, Denies any unexplained weight change, hair loss or fatigue. Patient to continue with above medication and we will continue to monitor through routine blood work Jun, Enlarged thyroid (ICD-10 - E04.9) Discussed with pt further evaluation of tyroid with ultrasound. Pt would like to proceed. Reports that this was idenitifed while she was in high school on two different occasions.Order faxed to [employer] Jun, Gastroesophageal reflux disease without esophagitis (ICD-10 - K21.9) Reflux symptoms remain unchanged. Discussed the importance of meal content. They should avoid overeating and eating meals late in the evening. Take medication as directed and we will continue to monitor. Jun, History of gastric surgery (ICD-10 - Z98.890) Jun, Iron deficiency (ICD-10 - E61.1) Last iron levels were within normal from April. Scanned into pt chart. Jun, Vitamin D deficiency (ICD-10 - E55.9) Her last Vitmain D was 24, and this results was scanned into chart. Jun, Vitamin A deficiency (ICD-10 - E50.9) Last level in April was low, discussed needing to take a Mutivitmain. Jun, Former smoker (ICD-1 0 - Z87.891) [facility] Other Evaluation + Plan note Future Appointments Appointment Date:08/06/2021 09:30:00 AM Scheduled Provider: Location[facility] Appointment Type:CV Stress (FT) Appointment Date:08/06/2021 11:00:00 AM Scheduled Provider: Location[facility] Appointment Type:CV Holter/Event (FT) Future Scheduled Tests Radiology* Echo Transthoracic Complete 07/24/21 * [facility] Appointment Date:08/11/2021 10:30:00 AM Scheduled Provider:Samir Thompson MD Location:[facility]ments Appointment Date:09/01/2021 02:30:00 PM Scheduled Provider:Samir Thompson MD Location[facility]ments Appointment Date:2022 11:15:00 AM Scheduled Provider:Samir Thompson MD [facility] InformationNort Get[employer] Other evaluation noteNo assessment information available [facility] Work Phone: evaluation note* Diagnosis Onset Date Resolution Status Anemia acute Anxiety and depression acute Bipolar disorder acute Iron deficiency anemia acute [facility] Work Phone: evaluation note* Diagnosis Onset Date Resolution Status Abdominal pain acute Chills acute Constipation acute Fever acute H/O gastric sleeve acute Vomiting acute [facility] Work Phone: evalucbjgt note* Diagnosis Onset Date Resolution Status [id number] acute Laxity of ligament acute Multidirectional instability of glenohumeral joint acute Numbness of right hand acute Other instability, right shoulder acute [facility] Work Phone: evaluation note* Diagnosis Onset Date Resolution Status [id number] acute Laxity of ligament acute Multidirectional instability of glenohumeral joint acute Numbness of right hand acute Other instability, right shoulder acute [id number] acute Laxity of ligament acute Multidirectional instability of glenohumeral joint acute Numbness of right hand acute Other instability, right shoulder acute Right carpal tunnel syndrome acute [facility] Work Phone: Evaluation note* Diagnosis Onset Date Resolution Status [id number] acute Laxity of ligament acute Multidirectional instability of glenohumeral joint acute Numbness of right hand acute Other instability, right shoulder acute [id number] acute Laxity of ligament acute Multidirectional instability of glenohumeral joint acute Numbness of right hand acute Other instability, right shoulder acute Right carpal tunnel syndrome acute [id number] acute Laxity of ligament acute Multidirectional instability of glenohumeral joint acute Other instability, right shoulder acute Right carpal tunnel syndrome acute [facility] Work Phone: Evaluation note* Diagnosis Onset Date Resolution Status [id number] acute Laxity of ligament acute Multidirectional instability of glenohumeral joint acute Numbness of right hand acute Other instability, right shoulder acute [id number] acute Laxity of ligament acute Multidirectional instability of glenohumeral joint acute Numbness of right hand acute Other instability, right shoulder acute Right carpal tunnel syndrome acute [id number] acute Laxity of ligament acute Multidirectional instability of glenohumeral joint acute Other instability, right shoulder acute Right carpal tunnel syndrome acute [id number] acute Laxity of ligament acute Multidirectional instability of glenohumeral joint acute Other instability, right shoulder acute Right carpal tunnel syndrome acute Status post arthroscopy of right shoulder acute [facility] Work Phone: Evaluation note* Diagnosis Onset Date Resolution Status [id number] acute Laxity of ligament acute Multidirectional instability of glenohumeral joint acute Numbness of right hand acute Other instability, right shoulder acute Right carpal tunnel syndrome acute [id number] acute Laxity of ligament acute Multidirectional instability of glenohumeral joint acute Other instability, right shoulder acute Right carpal tunnel syndrome acute [id number] acute Laxity of ligament acute Multidirectional instability of glenohumeral joint acute Other instability, right shoulder acute Right carpal tunnel syndrome acute Status post arthroscopy of right shoulder acute Status post surgery noneacti ve [id number] acute Laxity of ligament acute Multidirectional instability of glenohumeral joint acute Other instability, right shoulder acute Right carpal tunnel syndrome acute Status post arthroscopy of right shoulder acute Status post surgery noneacti ve [facility] Work Phone: Evaluation note* Diagnosis Well woman exam with routine gynecological exam Routine gynecological examination [facility] [place] [facility] Diagnosis 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 documented in this encounter [facility] note* Diagnosis Reproductive mgmt, 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 Special screening examination for infectious diseases Screening examination for unspecified infectious disease Encounter for other genetic testing of female for procreative management documented in this encounter [facility] note* Diagnosis Bipolar 1 disorder (Multi)- Primary Infertility counseling documented in this encounter [facility] Work Phone: Evaluation note* Diagnosis Treatment plan provided- Primary documented in this encounter [facility] note* Diagnosis Reproductive mgmt, 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 documented in this encounter [facility] note* Diagnosis Procreative management- Primary Unspecified procreative management documented in this encounter [facility] note* Diagnosis Female infertility- Primary Female infertility of unspecified origin [facility] [place] [facility] Diagnosis Fertility testing- Primary Female infertility Female infertility of unspecified origin [facility] [place] [facility]* Diagnosis Encounter for fertility planning [Z31.89]- Primary Other specified procreative management documented in this encounter [facility] note* Diagnosis Encounter for artificial insemination- Primary Artificial insemination [facility] [place] [facility]* Diagnosis 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)- Primary documented in this encounter [facility] note* Diagnosis 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)- Primary [facility] Diagnosis Abnormal thyroid function test- Primary Nonspecific abnormal results of thyroid function study 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 Vitamin D deficiency documented in this encounter [facility]* Diagnosis 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) [facility] [place] [facility] Diagnosis Early stage of (HCC) state, incidental [facility] [place] [facility]* Diagnosis Amenorrhea Absence of menstruation 9 weeks gestation of Missed menses , unspecified gestational age Encounter for supervision of normal first in first trimester documented in this encounter [facility]* Diagnosis 13 weeks gestation of (HHS-HCC) Second trimester (HHS-HCC) state, incidental Thyroid disease Unspecified disorder of thyroid H/O gastric sleeve H/O iron deficiency anemia resulting from in vitro fertilization in first trimester ([facility]) [facility] - [facility]* Type Description Date Surgical History cholecystectomy 2014 Surgical History gastric sleeve 2020 Taggled Other History general Narrative - Reported* Type Description Date Medical History Hypothyroidism Medical History MNG Medical History enuresis Medical History extreme obesity Medical History GERD with esophagitis Medical History headache Medical History Goiter, nontoxic, multinodular Medical History Vitamin D deficiency Surgical History cholecystectomy 2014 Surgical History cholecystectomy 2016 Surgical History gastric sleeve 2020 Hospitalization History Anemia 05/2022 Taggled Other Hospital course Narrative No data available for this section [facility] Discharge instructions No data available for this section [facility] Discharge instructions Additional Instructions POSTOPERATIVE INSTRUCTIONS FOR SHOULDER LABRAL REPAIR Romeo Santana DO Orthopedic Surgeon [facility] GENERAL INSTRUCTIONS: Use ice packs to the shoulder as much as you can tolerate (30 minutes on/30 minutes off) over the first 48-72 hours post-operatively. DO NOT apply ice directly to the skin. Always place a towel between the ice pack and skin. Low grade temperatures are common after surgery. Please notify the office if your temperature exceeds 101.5 degrees Fahrenheit. DO NOT make critical decisions or sign legal papers for the first 24 hours after surgery or while taking pain medication. MEDICATIONS AND DIET: You may resume all pre-operative medications unless otherwise specified. Only take pain medication as prescribed, as needed. We encourage ambulation to help prevent blood clots from developing in your legs You should take pain medication with food. It is not uncommon to have nausea or an upset stomach after surgery. Medication refills require a 48 hour notice; no exceptions will be made. NO REFILLS will be authorized over the weekend. Do not take extra Tylenol while taking prescription pain medication unless otherwise specified. If you have a reaction to your medications, stop taking them and call the office immediately. If you develop a significant rash, or have trouble breathing, call 911 or go immediately to the nearest emergency room. ACTIVITY: Your operative extremity is in shoulder sling. Please wear this as all times. You may remove this for bathing purposes. You may also come out of the sling 2-3 times per day to perform gentle pendulum exercises as well as gentle movement of your elbow. Do not actively move your shoulder otherwise. Wear the sling while sleeping at night . You are non-weightbearing on your operative arm. DRESSING/BANDAGES: Your surgical bandage may show some drainage over the first 24-48 hours following surgery. Keep steri-strips intact if they are present If your bandage becomes saturated, please notify the office. Your shoulder dressing is to be left on for the first 72 hours after surgery. On the third day after surgery, you may remove your dressing and cover with band-aids as needed DO NOT soak the incision. You may shower once the bandage is off. Allow water to wash over the incisions. Do not scrub the area DO NOT submerge the incision in a bath, hot tub, swimming pool, or any other body of water for the first 4 weeks following surgery. FOLLOW UP: Your first post-operative appointment should already be scheduled for you. If you do not already have a post-operative appointment, our office will contact you to schedule one. You should be seen in the office two weeks following your surgery unless otherwise specified. If you notice any increasing swelling, wound redness, or drainage, please contact our office immediately. Romeo Santana DO Orthopedic Surgeon [facility] Office: [address] [place] [address] Office number: [phone] [facility] Work Phone: Hospital Discharge instructionsAmbulatory Orders* Referral to Allergy/Immunology Time Frame: 04/26/24, Location: None Selected [facility] Work Phone: Hospital Discharge instructions Additional Instructions We evaluated you for your vaginal bleeding in . Your ultrasound was normal, the baby has a good heart rate, measuring at 13 weeks and 1 day. Your cervix was closed. Follow-up closely with your MEDICATION CARE MANAGER. Return to the emergency department if you develop any worsening or concerning symptoms.[facility] Work Phone: InstructionsNot on filedocumented in this encounter [facility]ative)No reason for referral information availableAshtabula [facility] Work Phone: Reason for visit Narrative* Consult, Test, Treat (Routine) - Closed Specialty Diagnoses / Procedures Referred By Contact Referred To Contact [facility]PRODUCT[facility] ENDOCRINOLOGY [facility] FERTILITY Diagnoses Encounter for procreative management, unspecified Encounter for other procreative management Procedures ARTIFIC INSEMINATION INTRAUTERIN THAWING CRYOPRESERVED SPERM/SEMEN EACH ALIQUOT Daniel Hanna APRN.POTATO INSPECTOR [address] [place] [address] Phone: tel:[phone] fax:[phone] Reproductive Endocrinology Infertility [address] [place] [address] Phone: tel: Referral ID Status Reason Start Date Expiration Date V isits Requested Visits Authorized [id number] Closed Financial Clearance Required - Self Pay Patient Cleared - True Self-Pay required payment collected Do Not Bill Insurance - SP patient 05/17/2024 08/15/2024 2 2 [facility] [place] for visit Narrative* Diagnostic Procedure Only (Routine) - Authorized Specialty Diagnoses / Procedures Referred By Saud tavera Referred To Contact [facility] Diagnoses Fertility testing Procedures PELVIC US WHI US PELVIC NONOBSTETRIC REAL-TIME IMAGE COMPLETE Ignacio Guy MD [address] [place] [address] Phone: tel: fax: [facility] [address] [place] [address] Referral ID Status Reason Start Date Expiration Date Visits Requested Visits Authorized [id number] Authorized Auto-Generate d Referral Patient Cleared - True Self-Pay required payment collected Do Not Bill Insurance - SP patient 06/09/2024 06/09/2025 2 2 [facility] [place] for visit Narrative* Consult, Test, Treat (Routine) - Closed Specialty Diagnoses / Procedures Referred By Contact Referred To Contact [facility]ODUCT[facility] ENDOCRINOLOGY [facility] FERTILITY Diagnoses Encounter for procreative management, unspecified Encounter for other procreative management Procedures THAWING CRYOPRESERVED SPERM/SEMEN EACH ALIQUOT ARTIFIC INSEMINATION INTRAUTERIN Daniel Hanna, SECURITY INSTALLER.POTATO INSPECTOR [address] [place] [id number] Phone: tel:[phone] fax:[phone] Reproductive Endocrinology Infertility [address] [place] [id number] Phone: tel: Referral ID Status Reason Start Date Expiration Date V isits Requested Visits Authorized [id number] Closed Patient Cleared - True Self-Pay required payment collected Do Not Bill Insurance - SP patient 06/29/2024 09/27/2024 2 2 [facility] [place] for visit Narrative* Financial Clearance (Routine) - Closed Specialty Diagnoses / Procedures Referred By Saud t Referred To Contact FINANCE Diagnoses Collect for IUI-D washed sample Procedures THAWING CRYOPRESERVED SPERM/SEMEN EACH ALIQUOT ARTIFIC INSEMINATION INTRAUTERIN FINANCIAL CLEARANCE PHONE CALL Self Financial Clearance Phone Screening [place] [address] Referral ID Status Reason Start Date Expiration Date V isits Requested Visits Authorized [id number] Closed Financial Clearance Required - Self Pay Patient Cleared - True Self-Pay required payment collected Do Not Bill Insurance - SP patient 07/25/2024 09/23/2024 2 2 [facility] [place] for visit Narrative* Diagnostic Procedure Only (Routine) - Closed Specialty Diagnoses / Procedures Referred By Contsari t Referred To Contact [facility] Diagnoses 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) Procedures OBSTETRIC ULTRASOUND WHI US PREG UTERUS AFTER 1ST TRIMEST 1/ GESTATION Shelly Hernandez, SECURITY INSTALLER.POTATO INSPECTOR [address] [place] [id number] Phone: tel: fax: [facility] [address] [place] [address] Referral ID Status Reason Start Date Expiration Date V isits Requested Visits Authorized [id number] Closed Auto-Generate d Referral 08/20/2024 08/20/2025 1 1 [facility]* Diagnostic Procedure Only (Routine) - Closed Specialty Diagnoses / Procedures Referred By Saud tavera Referred To Contact [facility] Diagnoses Early stage of (HCC) Procedures OBSTETRIC ULTRASOUND WHI US PREG UTERUS AFTER 1ST TRIMEST GESTATION Shelly Hernandez APRN.POTATO INSPECTOR [address] [place] [address] Phone: tel: fax: [facility] [address] [place] [address] Referral ID Status Reason Start Date Expiration Date V isits Requested Visits Authorized [id number] Closed Auto-Generate d Referral 09/03/2024 04/17/2025 1 1 [facility] Advance Directives No Advanced Directives Records FoundDocuments on File Type Date Recorded 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 ACP-Advance Directive ACP-Power of Roastmaster Documents on File Type Date Recorded 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 gatorade per surgeon (Follow bowel prep instructions if instructed by your surgeon.) Arrive at the surgery center (Entrance B) by 8:20 on 05/06/2020 (or as directed by your surgeon's office). Please stop any blood thinning medications as directed by your surgeon or prescribing physician. Failure to stop certain medications may interfere with your scheduled surgery. These may include: Aspirin, Warfarin (Coumadin), Clopidogrel (Plavix), Ibuprofen (Motrin, Advil), Naproxen (Aleve), Meloxicam (Mobic), Celecoxib (Celebrex), Eliquis, Pradaxa, Xarelto, Effient, Fish Oil, Herbal supplements. You may continue the rest of your medications through the night before surgery unless instructed otherwise. Please take only the following medication(s) the day of surgery with a small sip of water: Prevacid, synthroid Please use and bring inhalers the day of surgery. Please bring CPAP the day of surgery. 04/22/20 8:15 AM Signature (Patient) Signature/date(Provider) REMINDERS: If you are going home the day of your procedure, you will need a friend or family member to drive you home after your procedure. Your lunch truck driver must be 18 years of age or older and able to sign off on your discharge instructions. Taxi cabs or any form of public transportation is not acceptable. It is preferable that the friend or family member stay at the hospital throughout your procedure. If you are going home the same day as your procedure, someone must remain with you for the first24 hours after your surgery if you receive anesthesia or sedation. If you do not have someone to stay with you, your procedure may be cancelled. Please do not wear any jewelry or body piercings the day of surgery. PREPARING FOR YOUR SURGERY: Before surgery, you can play an important role in your own health. Because skin is not sterile, we need to be sure that your skin is as free of germs as possible before surgery by carefully washing before surgery. Preparing or prepping skin before surgery can reduce the risk of a surgical site infection. Do not shave the area of your body where your surgery will be performed unless you received specific permission from your physician. You will need to shower at home the night before surgery and the morning of surgery with a special soap called chlorhexidine gluconate (CHG*). *Not to be used by people allergic to Chlorhexidine Gluconate (CHG). Following these instructions will help you be sure that your skin is clean before surgery. Instructions on cleaning your skin before surgery: The night before your surgery: ? You will need to shower with warm water (not hot) and the CHG soap. ? Use a clean wash cloth and a clean towel. Have clean clothes available to put on after the shower. ? First wash your hair with regular shampoo. Rinse your hair and body thoroughly to remove the shampoo. ? Wash your face with your regular soap or water only. Thoroughly rinse your body with warm water from the neck down. ? Turn water off to prevent rinsing the soap off too soon. ? With a clean wet washcloth and half of the CHG soap in the bottle, lather your entire body from the neck down. Do not use CHG soap near your eyes or ears to avoid injury to those areas. ? Wash thoroughly, paying special attention to the area where your surgery will be performed. ? Wash your body gently for five (5) minutes. Avoid scrubbing your skin too hard. ? Turn the water back on and rinse your body thoroughly. ? Pat yourself dry with a clean, soft towel. Do not apply lotion, cream or powder. ? Dress with clean freshly washed clothes. The morning of surgery: ? Repeat shower following steps above - using remaining half of CHG soap in bottle. If you have any questions, call the Pre-Admission Testing Unit at [phone]. Day of Surgery/Procedure As a patient at [facility] you can expect quality medical and nursing care that is centered on your individual needs. Our goal is to make your surgical experience as comfortableas possible . Directions to the Surgery Center [facility] is located at [address] [place] [address]. Please pull into the Emergency parking lot and stop at the moss picker dotson. We offer free moss picker service for all our surgery patients, if you choose not to have moss picker parking we have additional parking across the street.You will enter the facility following the [facility] sign. Please stop at the switchboard operator receptionist desk where you will be checked in by the staff. If you have any questions please call [phone]. Transportation after your procedure. You will need a friend or family member to drive you home after your procedure. Your lunch truck driver must be18 years of age or older and able to sign off on your discharge instructions. Taxi cabs or any formof public transportation is not acceptable. It is preferable that the friend or family member stay at the hospital throughout your procedure. Someone must remain at home with you for the first 24 hours after your surgery if you receive anesthesia or sedation. If you do not have someone to stay with you, your procedure may be cancelled. Patient Instructions ? If you are having any type of anesthesia you are to have nothing to eat or drink after midnight the night before your surgery. This includes gum, mints, water or smoking or chewing tobacco. The only exception to this is a small sip of water to take with any morning dose of heart, blood pressure, or seizure medications. ? Bring a list of all medications you take, along with the dose of the medications and how often you take it. If more convenient bring the pharmacy bottles in a zip lock bag. ? Please shower the night before and the morning of surgery with an antibacterial soap. Please use the wipes given to you the night before your surgery after your shower. Unless otherwise told by your physician, please do not shave legs or any part of your body below your neck the night before or day of your surgery. You may shave your face or neck. ? [place] your teeth but do not swallow water. ? Bring your inhaler if you are currently using one. ? Bring your eyeglasses and case with you. No contacts are to be worn the day of surgery. You also may bring your hearing aids. ? Bring your blood band if one has been given to you. Please do not close the clasp. ? If you are on C-PAP or Bi-PAP at home and plan on staying in the hospital overnight for your surgery please bring the machine with you. ? Do not wear any jewelry or body piercings day of surgery. Also, NO lotion, perfume or deodorant to be used the day of surgery. ? Do not bring any valuables, such as jewelry, [place] or credit cards. If you are staying overnight with us, please bring a SMALL bag of personal items. We cannot accommodate large items, like suitcases. ? Please wear loose, comfortable clothing. If you are potentially going to have a cast or brace bring clothing that will fit over them. ? In case of illness If you have cold or flu like symptoms (high fever, runny nose, sore throat, cough, etc.) rash, nausea, vomiting, loose stools, and/or recent contact with someone who has a contagious disease (chicken pox, measles, etc.) Please call your doctor before coming to the hospital. ? If your child is having surgery please make arrangements for any other children to be cared for at home on the day of surgery. Other children are not permitted in recovery room and we want you to be able to spend time with the patient. If other arrangements are not available then we suggest that you have a second adult to stay in the waiting room. If you have any other questions regarding your procedure or the day of surgery, please call [phone], or [phone] documented in this encounter* Instructions* Mukesh Montez, - 05/06/2020 Rectus Block Instructions What is a nerve block and how does it work? Nerves control movement, pain and normal sensation. The Anesthesiologist has administered a local anesthetic medication to block normal sensations in the desired nerve ( s). The nerve block can causefeelings such as tingling or numbness in your abdomen. How long will the nerve block last? The nerve block can last anywhere from 2-48 hours depending on the medications used. Normal sensation will gradually return. Frequently, weakness goes away first, then numbness or tingling, followed by the return of the feeling of pain. However these feelings can return in any order. It usually takes 60 minutes for sensation to fully return once the nerve block starts to wear off. If the block does not wear off in 48 hours call the anesthesia department at [phone]. Will you need pain medication? The nerve block is only one of many forms of pain relief available. If your surgeon has prescribed oral pain medication, then take it as prescribed as the numbness starts to wear off or at the first sign of pain to keep the pain from getting out of control once the block is gone. If you have questions or concerns after receiving a nerve block please phone the Anesthesiology Department at [phone]. If the phone does not get answered please contact the hospital emergency operator at [phone] to page the traffic operations engineer anesthesiologist Discharge Instructions for Bariatric Surgery You had a Laparoscopic Sleeve Gastrectomy (79958) surgery to treat obesity. Recovery from this surgery can take several weeks and requires permanent lifestyle changes. What You Will Need Protein Supplements Bariatric Vitamins Abdominal Binder Incentive spirometer (a breathing device) Home Care It is important to keep the incisions clean and dry to promote healing. Shower with soap and rinse and dry thoroughly. If incisions are oozing, you may cover with clean gauze. Use the incentive spirometer every couple of hours. This is to make sure you are breathing deeply and keeping the air sacs within your lungs as open as possible to prevent respiratory problems. Diet It is important to follow the diet progression very closely in order to prevent complications. When arriving home, follow the Phase 1A Liquid Diet for one weeks. Dehydration and changes in bowelhabits can occur after surgery. Refer to your educational binder provided pre-op for additional information. Once you move to solids, food must be chewed well. When making food choices, you'll need to ensure adequate protein intake, while avoiding sweets and fatty foods. Eating too much or too quickly can cause vomiting or intense pain under your breastbone. Most people quickly learn how much food they can tolerate. Physical Activity When home, we recommend that you take frequent walks, as tolerated, to prevent complications and increase your endurance. Ask your doctor when you will be able to return to work. You may need to wait 2- [address] unless you are no longer using pain medications Do not lift anything over ten pounds for 4 weeks. Medications Remember to avoid aspirin, aspirin-containing products, and nonsteroidal anti- inflammatory drugs (NSAIDs, such as ibuprofen, naproxen, etc.). If you were taking these medications before the procedure, and had to stop, ask your doctor when you can resume taking them. Be sure to review your medications with your primary care provider at yourfollow up office visit. Lifestyle Changes Changing your diet and level of activity are the biggest lifestyle changes associated with your success. Be aware that you may have emotional ups and downs after this surgery. Follow-up Follow up with your primary care physician in one week. Follow up with Dr. Olivera in 1 week. If you don't already have a scheduled appointment, please call the office at [phone]. Call Your Doctor If Any of the Following Occurs Monitor your recovery once you leave the hospital. If any of the following occur, call your doctor: Signs of infection, including fever above 100.5F Redness, swelling, increasing pain, excessive bleeding, or any discharge from the incision site Persistent nausea and/or vomiting Pain that you can't control with the medications you've been given Shortness of breath and/or chest pain Tachycardia (racing heart sensation) unrelieved by rest Pain, redness and/or swelling in your feet or legs Sudden onset of severe left shoulder pain or severe abdominal pain Any symptoms that are causing you concern In case of an emergency, call 911 immediately. documented in this encounter History of Present Illness * Kunal Newman PA - 04/22/2020 2:00 PM EST Anesthesia Focused Assessment STOP-BANG Sleep Apnea Questionnaire SNORE loudly (heard through closed doors)? Yes TIRED, fatigued, sleepy during daytime? No OBSERVED stopping breathing during sleep? No High blood PRESSURE being treated? No BMI over 35? Yes AGE over 50? No NECK circumference over 16 ? Yes GENDER (male)? No Total 3 High risk 5-8 Intermediate risk 3-4 Low risk 0-2 Obstructive Sleep Apnea: snores but denies apnea If YES, machine used: no Type 1 DM: no T2DM: no Coronary Artery Disease: no Hypertension: no Active smoker: no Drinks Alcohol: no Dentition: benign Defib / AICD / Pacemaker: no Renal Failure/dialysis: no Patient was evaluated in PAT & anesthesia guidelines were applied. NPO guidelines, medication instructions and scheduled arrival time were reviewed with patient. Hx of anesthesia complications: PONV post op, required medication prior to nasal surgery and did well. Family hx of anesthesia complications: no Anesthesia contacted: no Medical or cardiac clearance ordered: PCP clearance pending. KUNAL NEWMAN PA-C 04/22/20 2:52 PM documented in this encounter* Trell Olivia - 05/08/2020 11:33 AM EST CLINICAL PHARMACY NOTE: MEDS TO [facility] Select Patient?: No Total # of Prescriptions Filled: 3 The following medications were delivered to the patient: Oxycodone-acetaminophen 5/325 mg tab Cyclobenzaprine 10 mg tab Enoxaparin 60mg /0.6 ml syr Total # of Interventions Completed: 1 Time Spent (min): 60 Additional Documentation:called director of casework about the high co-pay on the enoxaparin and they sent a voucher for it! We delivered medications to the patient in her room (246) 05/08 @11:15 am . * Mukesh Montez, DO - 05/07/2020 6:23 AM EST General Surgery: Daily Progress Note PATIENT NAME: Jaz Sanders TODAY'S DATE: 05/07/2020, 6:23 AM SUBJECTIVE: Pt seen and examined at bedside this morning. No acute events overnight. Afebrile. Pain well controlled. Patient reports nausea and 2 episodes of vomiting. Otherwise tolerating bariatric clear liquiddiet. Out of bed ambulating. OBJECTIVE: VITALS: BP (!) 148/83 Pulse 97 Temp 97.9 F (36.6 C) (Oral) Resp 16 Ht 5' 11 (1.803 m) Wt(!) 422 lb (191.4 kg) LMP 04/08/2020 SpO2 94% BMI 58.86 kg/m INTAKE/OUTPUT: Intake/Output Summary (Last 24 hours) at 05/07/2020 0623 Last data filed at 05/06/2020 2359 Gross per 24 hour Intake 1430 ml Output 730 ml Net 700 ml PHYSICAL EXAM: General Appearance: awake, alert, oriented, in no acute distress HEENT: Normocephalic, atraumatic, mucus membranes moist Skin: Skin color, texture, turgor normal. No rashes or lesions. Lungs: No chest wall tenderness. Heart: Heart regular rate and rhythm Abdomen: Soft, nontender, nondistended, no peritoneal signs, no rebound tenderness, drain in place with SS output, port site incisions healing well with glue intact Extremities: pulses present in all extremities Data: CBC with Differential: Lab Results Component Value Date WBC 13.7 05/07/2020 RBC 4.82 05/07/2020 HGB 12.6 05/07/2020 HCT 40.4 05/07/2020 PLT 289 05/07/2020 MCV 83.8 05/07/2020 MCH 26.1 05/07/2020 MCHC 31.2 05/07/2020 RDW 14.4 05/07/2020 LYMPHOPCT 30 01/10/2019 MONOPCT 7 01/10/2019 EOSPCT 3.0 01/10/2019 BASOPCT 0.5 01/10/2019 MONOSABS 0.7 01/10/2019 LYMPHSABS 2.9 01/10/2019 EOSABS 0.3 01/10/2019 BASOSABS 0.0 01/10/2019 DIFFTYPE NOT REPORTED 06/13/2014 BMP: Lab Results Component Value Date NA 140 05/07/2020 K 4.1 05/07/2020 CL 104 05/07/2020 CO2 23 05/07/2020 BUN 6 05/07/2020 LABALBU 3.6 01/10/2019 CREATININE 0.73 05/07/2020 CALCIUM 9.4 05/07/2020 GFRAA >60 05/07/2020 LABGLOM >60 05/07/2020 GLUCOSE 98 05/07/2020 ASSESSMENT: Active Hospital Problems Diagnosis Date Noted Status post laparoscopic sleeve gastrectomy [Z98.84] 05/06/2020 25 y.o. female postop day 1 status post sleeve gastrectomy Plan: 1. Patient seen examined at bedside this morning. 2. Continue bariatric clear liquid diet 3. Esophagram this morning 4. Pain control 5. Nausea control 6. Encourage patient to be out of bed to ambulate 7. Continue to use incentive spirometer, practice deep breathing 8. Discharge planning * Ritu Wells RCP - 05/06/2020 9:07 PM EST BRONCHOSPASM/BRONCHOCONSTRICTION [x] IMPROVE AERATION/BREATH SOUNDS [x] ADMINISTER BRONCHODILATOR THERAPY APPROPRIATE [x] ASSESS BREATH SOUNDS [] IMPLEMENT AEROSOL/MDI PROTOCOL [x] PATIENT EDUCATION NEEDED * Silvia Chen RN - 05/06/2020 4:38 PM EST Patient transferred to room 246 via bed with belongings including glasses. accompanied patient to unit. * Silvia Chen RN - 05/06/2020 4:33 PM EST Report called to Pattie ABRAHAM. * Silvia Chen RN - 05/06/2020 3:00 PM EST Patient meets floor criteria. Awaiting bed placement. * Cuca Cote RN - 05/06/2020 11:17 AM EST Patient and updated on surgery delay. * Amy Cook RN - 05/06/2020 10:49 AM EST [phone] Dr Cohen to the bedside, time out performed, Pt monitored, 02, Tip Rectus Sheath nerve block completed using Bupivacaine, 0.5% 20 ml to each side. pt tolerated procedure well, Site CDI, (seecharting) vss, Versed Given: 2 mg Fentanyl 50 mcg, pt denies co pain or discomfort, family back to the bedside, * Ariane Lehman RN - 04/30/2020 2:04 PM EST Medical Clearance obtained for OR 05-06-20 documented in this encounter Assessments Diagnosis Post-op pain- Primary Other acute postoperative pain Status post laparoscopic sleeve gastrectomy Diagnosis Pre-op testing- Primary Preoperative examination, unspecified Summary Purpose Family History No Family History Records Found Relationship Condition Age at Onset Recorded Date/T sanjuanita Not Specified Hypothyroidism Unknown Not Specified Depression Unknown Overactive bladder Unknown father Hypertension Unknown sister Overactive bladder Unknown Relationship Condition Age at Onset Recorded Date/T sanjuanita Not Specified Hypothyroidism Unknown Not Specified Depression Unknown Overactive bladder Unknown father Hypertension Unknown sister Overactive bladder Unknown Family history of thyroid disease Unknown Diabetes mellitus Unknown Not Specified Family history of mental disorder Unknow n Relationship Condition Age at Onset Recorded Date/T sanjuanita Not Specified Hypothyroidism Unknown mother Depression Unknown Overactive bladder Unknown father Hypertension Unknown sister Overactive bladder Unknown Family history of thyroid disease Unknown Diabetes mellitus Unknown mother Family history of mental disorder Unknown Relationship Condition Age at Onset Recorded Date/T sanjuanita mother Overactive bladder Unknown Depression Unknown Hypothyroidism Unknown Family history of thyroid disease Unknown Family history of mental disorder Unknown father Overactive bladder Unknown Hypertension Unknown Diabetes mellitus Unknown sister Overactive bladder Unknown Chief Complaint and Reason for Visit Chief Complaint G89.29 M25.511 vaginal bleeding Urogenital/Dizziness Chief Complaint G89.29 M25.511 vaginal bleeding Urogenital/Dizziness R30.9 Chief Complaint G89.29 M25.511 vaginal bleeding Urogenital/Dizziness R30.9 abnormal labs Reason for Visit Anemia Anxiety and depression Bipolar disorder Iron deficiency anemia Chief Complaint vaginal bleeding Urogenital/Dizziness R30.9 abnormal labs Reason for Visit Anemia Anxiety and depression Bipolar disorder Iron deficiency anemia Chief Complaint vaginal bleeding Urogenital/Dizziness R30.9 Z79.899 abnormal labs Reason for Visit Anemia Anxiety and depression Bipolar disorder Iron deficiency anemia Chief Complaint 8 Weeks After Therap y Abdominal Pain/ Bowel Issues Reason for Visit Abdominal pain Chills Constipation Fever H/O gastric sleeve Vomiting Chief Complaint OP SP RT SHOULDER DI SCUSS SURGERY Reason for Visit [id number] Laxity of ligament Multidirectional instability of glenohumeral joint Numbness of right hand Other instability, right shoulder Chief Complaint OP SP RT SHOULDER DI SCUSS SURGERY R20.0 Reason for Visit [id number] Laxity of ligament Multidirectional instability of glenohumeral joint Numbness of right hand Other instability, right shoulder Chief Complaint OP SP RT SHOULDER DI SCUSS SURGERY R20.0 EMG RESULTS Reason for Visit [id number] Laxity of ligament Multidirectional instability of glenohumeral joint Numbness of right hand Other instability, right shoulder [id number] Laxity of ligament Multidirectional instability of glenohumeral joint Numbness of right hand Other instability, right shoulder Right carpal tunnel syndrome Chief Complaint OP SP RT SHOULDER DI SCUSS SURGERY R20.0 EMG RESULTS Shoulder pain Reason for Visit [id number] Laxity of ligament Multidirectional instability of glenohumeral joint Numbness of right hand Other instability, right shoulder [id number] Laxity of ligament Multidirectional instability of glenohumeral joint Numbness of right hand Other instability, right shoulder Right carpal tunnel syndrome Chief Complaint OP SP RT SHOULDER DI SCUSS SURGERY R20.0 EMG RESULTS Shoulder pain H & P RIGHT SHOULDER ARTHROSCOPY 12-07-23 Reason for Visit [id number] Laxity of ligament Multidirectional instability of glenohumeral joint Numbness of right hand Other instability, right shoulder [id number] Laxity of ligament Multidirectional instability of glenohumeral joint Numbness of right hand Other instability, right shoulder Right carpal tunnel syndrome [id number] Laxity of ligament Multidirectional instability of glenohumeral joint Other instability, right shoulder Right carpal tunnel syndrome Chief Complaint OP SP RT SHOULDER DI SCUSS SURGERY R20.0 EMG RESULTS Shoulder pain H & P RIGHT SHOULDER ARTHROSCOPY 12-07-23 Shoulder pain Shoulder pain Reason for Visit [id number] Laxity of ligament Multidirectional instability of glenohumeral joint Numbness of right hand Other instability, right shoulder [id number] Laxity of ligament Multidirectional instability of glenohumeral joint Numbness of right hand Other instability, right shoulder Right carpal tunnel syndrome [id number] Laxity of ligament Multidirectional instability of glenohumeral joint Other instability, right shoulder Right carpal tunnel syndrome Chief Complaint OP SP RT SHOULDER DI SCUSS SURGERY R20.0 EMG RESULTS Shoulder pain H & P RIGHT SHOULDER ARTHROSCOPY 12-07-23 Shoulder pain Shoulder pain 10-14 DAYS POST OP Reason for Visit [id number] Laxity of ligament Multidirectional instability of glenohumeral joint Numbness of right hand Other instability, right shoulder [id number] Laxity of ligament Multidirectional instability of glenohumeral joint Numbness of right hand Other instability, right shoulder Right carpal tunnel syndrome [id number] Laxity of ligament Multidirectional instability of glenohumeral joint Other instability, right shoulder Right carpal tunnel syndrome [id number] Laxity of ligament Multidirectional instability of glenohumeral joint Other instability, right shoulder Right carpal tunnel syndrome Status post arthroscopy of right shoulder Chief Complaint R20.0 EMG RESULTS Shoulder pain H & P RIGHT SHOULDER ARTHROSCOPY 12-07-23 Shoulder pain Shoulder pain 10-14 DAYS POST OP R20.0 4 WEEKS Reason for Visit [id number] Laxity of ligament Multidirectional instability of glenohumeral joint Numbness of right hand Other instability, right shoulder Right carpal tunnel syndrome [id number] Laxity of ligament Multidirectional instability of glenohumeral joint Other instability, right shoulder Right carpal tunnel syndrome [id number] Laxity of ligament Multidirectional instability of glenohumeral joint Other instability, right shoulder Right carpal tunnel syndrome Status post arthroscopy of right shoulder Status post surgery [id number] Laxity of ligament Multidirectional instability of glenohumeral joint Other instability, right shoulder Right carpal tunnel syndrome Status post arthroscopy of right shoulder Status post surgery Chief Complaint Admit Date Shoulder pain December 07, 2023 5: 51am Shoulder pain December 07, 2023 9: 47am 10-14 DAYS POST OP December 20, 2023 10:11am R20.0 January 10, 2024 12:00am 4 WEEKS January 17, 2024 11 :58am 6 WEEKS February 27, 2024 2:25pm Reason for Visit Admit Date Degenerative superior labral gdmaqtka-lc-jwueennlg (SLAP) tear of right matthias December 20, 2023 10:11am Laxity of ligament December 20, 2023 10:11am Multidirectional instability of glenohum eral joint December 20, 2023 10:11am Other instability, right shoulder Septem 2023 10:11am Right carpal tunnel syndrome December 192023 10:11am Status post arthroscopy of right shoulde r December 20, 2023 10:11am Status post surgery December 20, 2023 10:11am Degenerative superior labral eaerkodb-dv-utwplfedj (SLAP) tear of right matthias January 17, 2024 11:58am Laxity of ligament January 17, 2024 11 :58am Multidirectional instability of glenohum eral joint January 17, 2024 11:58am Other instability, right shoulder Octobe 2023 11:58am Right carpal tunnel syndrome January 11:58am Status post arthroscopy of right shoulde r January 17, 2024 11:58am Status post surgery January 17, 2024 11 :58am Degenerative superior labral hesaqimr-la-dcolsbacm (SLAP) tear of right matthias February 27, 2024 2:25pm Laxity of ligament February 27, 2024 2:25pm Multidirectional instability of glenohum eral joint February 27, 2024 2:25pm Other instability, right shoulder Novemb er 2023 2:25pm Right carpal tunnel syndrome February 262023 2:25pm Status post arthroscopy of right shoulde r February 27, 2024 2:25pm Status post surgery February 27, 2024 2:25pm Chief Complaint Admit Date 6 WEEKS February 27, 2024 2:25pm 6-8 WEEKS April 23, 2024 2: 29pm Reason for Visit Admit Date Degenerative superior labral akpnodos-dt-xhzavbnnf (SLAP) tear of right matthias February 27, 2024 2:25pm Laxity of ligament February 27, 2024 2:25pm Multidirectional instability of glenohum eral joint February 27, 2024 2:25pm Other instability, right shoulder Novemb er 2023 2:25pm Right carpal tunnel syndrome February 262023 2:25pm Status post arthroscopy of right shoulde r February 27, 2024 2:25pm Status post surgery February 27, 2024 2:25pm Degenerative superior labral ykkqnkpu-jq-wicpevbel (SLAP) tear of right matthias April 23, 2024 2:29pm Laxity of ligament April 23, 2024 2: 29pm Multidirectional instability of glenohum eral joint April 23, 2024 2:29pm Other instability, right shoulder Apruar y 2024 2:29pm Right carpal tunnel syndrome April 2:29pm Status post arthroscopy of right shoulde r April 23, 2024 2:29pm Chief Complaint Admit Date 6 WEEKS February 27, 2024 2:25pm 6-8 WEEKS April 23, 2024 2: 29pm talk about getting allergy tested Apruar y 2024 8:29am Reason for Visit Admit Date Degenerative superior labral bydqcyry-qq-tgfvszuul (SLAP) tear of right matthias February 27, 2024 2:25pm Laxity of ligament February 27, 2024 2:25pm Multidirectional instability of glenohum eral joint February 27, 2024 2:25pm Other instability, right shoulder Novemb er 2023 2:25pm Right carpal tunnel syndrome February 262023 2:25pm Status post arthroscopy of right shoulde r February 27, 2024 2:25pm Status post surgery February 27, 2024 2:25pm Degenerative superior labral svkecgiz-ia-enjjybcrf (SLAP) tear of right matthias April 23, 2024 2:29pm Laxity of ligament April 23, 2024 2: 29pm Multidirectional instability of glenohum eral joint April 23, 2024 2:29pm Other instability, right shoulder Januar y 2024 2:29pm Right carpal tunnel syndrome April 2:29pm Status post arthroscopy of right shoulde r April 23, 2024 2:29pm Acute urticaria April 26, 2024 8: 29am Hypothyroid April 26, 2024 8: 29am Other chronic pain April 26, 2024 8: 29am Chief Complaint Admit Date 13 weeks prego spotting October 18, 2024 1 0:16am Reason for Referral Reason assess for surgical fixation of labrum tear, failed therapy exercises and steroid injection, MRI at [facility], Dr. 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) Referral Organization [facility] Family Medicin e Victoria Referring Provider First Name Amanda Referring Provider Last Name Logan Referring Provider Specialty Nurse Pract itioner Referred Organization [employer] Referred Provider Darleen Sinclair Referred Address [address],[place], [place],[address] Referred Provider Specialty Endocrinolog y Referral Priority Routine General Notes Fore, Chelsi M 023 11:26:34 AM >Received today and waiting for office notes to be locked before sending referral Additional Source Comments Reason for Visit (unrecogniz ed section and content) Status Reason Specialty Diagnoses / Procedures Referre d By Contact Referred To Contact Diagnoses Morbid obesity (HCC) MORBID OBESITY, HYPOTHYROID Procedures NV LAP GASTRIC BYPASS/BEN-EN-Y XI LAPAROSCOPIC ROBOTIC GASTRIC BYPASS BEN-EN-Y, LIVER BIOPSY, EGD- GI UNIT SCHEDULED. Rashard Olivera, [address] 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 [facility] [address] [place] [address] Referral ID Status Reason Start Date Expiration Date V isits Requested Visits Authorized [id number] Closed Financial Clearance Required - Self Pay Patient Cleared - True Self-Pay required payment collected Do Not Bill Insurance - SP patient Financial Clearance Not Required 12/30/2023 02/28/2024 1 1 Reason Comments 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 [place] [address] [facility] [address] [place] [address] Referral ID Status Reason Start Date Expiration Date V isits Requested Visits Authorized [id number] Closed Financial Clearance Required - Self Pay Patient Cleared - True Self-Pay required payment collected Do Not Bill Insurance - SP patient 02/28/2024 05/28/2024 1 1 Specialty Diagnoses / Procedures Referred By [facility] Referred To Contact REPRODUCTIVE ENDOCRINOLOGY & FERTILITY Diagnoses Encounter for fertility testing Procedures OFFICE/OUTPATIENT ESTABLISHED LOW MDM 20 MIN [facility] [address] [place] [address] [facility] [address] [place] [address] Referral ID Status Reason Start Date Expiration Date V isits Requested Visits Authorized [id number] Closed Financial Clearance Required - Self Pay Patient Cleared - True Self-Pay required payment collected Do Not Bill Insurance - SP patient 04/24/2024 07/23/2024 1 1 Reason Comments Treatment Planning Reason Comments re iui this wknd/has cervical polyp ques tion Reason Comments Patient calling back/re iui 07/07 unsure Reason Comments Patient Question Reason Comments positive for Reason Comments Reason Comments Thyroid Problem Follow-up 1.5 YRS Reason Comments Pain Reason Comments Amenorrhea Reason Comments Routine Visit Ordered Prescriptions (unrec ognized section and content) Prescription Sig Dispensed Refills Start Date End Da te enoxaparin (LOVENOX) 60 MG/0.6ML injection Inject 0.6 mLs into the skin 2 times daily 28 Syringe 0 05/07/2020 cyclobenzaprine (FLEXERIL) 10 MG tablet Take 1 tablet by mouth 2 times daily as needed for Muscle spasms 20 tablet 0 05/07/2020 cyclobenzaprine (FLEXERIL) 10 MG tablet Take 1 tablet by mouth nightly as needed for Muscle spasms 10 tablet 0 05/07/2020 05/17/2020 promethazine (PHENERGAN) 25 MG tablet Take 1 tablet by mouth every 6 hours as needed for Nausea 30 tablet 0 05/07/2020 promethazine (PHENERGAN) 25 MG tablet Take 1 tablet by mouth 4 times daily as needed for Nausea 20 tablet 0 05/07/2020 05/14/2020 oxyCODONE-acetaminophen (PERCOCET) 5-325 MG per tabletIndications:Post- op pain Take 1 tablet by mouth every 6 hours as needed for Pain for up to 7 days. Intended supply: 3 days. Take lowest dose possible to manage pain 28 tablet 0 05/07/2020 05/14/2020 INFORMATION SOURCE (unrecogn ized section and content) DATE CREATED AUTHOR 05/08/2020 [facility] DATE CREATED AUTHOR AUTHOR'S ORGANIZ ATION 03/31/2021 [facility] DATE CREATED AUTHOR AUTHOR'S ORGANIZ ATION 09/04/2021 [facility] DATE CREATED AUTHOR AUTHOR'S ORGANIZ ATION 04/19/2024 [facility] DATE CREATED AUTHOR AUTHOR'S ORGANIZ ATION 05/05/2024 [facility] DATE CREATED AUTHOR AUTHOR'S ORGANIZ ATION 09/12/2024 [facility] DATE CREATED AUTHOR AUTHOR'S ORGANIZ ATION 10/05/2024 [facility] DATE CREATED AUTHOR AUTHOR'S ORGANIZ ATION 10/26/2024 [facility] EPIC DATE CREATED AUTHOR AUTHOR'S ORGANIZ ATION 11/09/2024 [facility] Care Teams (unrecognized sec tion and content) Team Status: Inactive Member Role Status Dates Robin Appiah MD Primary Care Provider Active Amanda Ford APRN COATING MACHINE OPERATOR HELPER-C Attending Provider Act misti Team Status: Inactive Member Role Status Dates Amanda Ford APRN COATING MACHINE OPERATOR HELPER-C Primary Care Provider Active Jean Jett PA-C Emergency Provider Active Team Status: Inactive Member Role Status Dates Amanda Ford APRN COATING MACHINE OPERATOR HELPER-C Primary Care Provider Active Jack Easton DO Emergency Provider Active Team Status: Active Member Role Status Dates Amanda Ford APRN COATING MACHINE OPERATOR HELPER-C Primary Care Provider Active Team Status: Inactive Member Role Status Dates Amanda Ford APRN COATING MACHINE OPERATOR HELPER-C Primary Care Provider, Attending Provider Active Team Status: Active Member Role Status Dates Amanda Ford APRN COATING MACHINE OPERATOR HELPER-C Primary Care Provider Active Jean Jett PA-C Emergency Provider Active Farhad Gallego MD Admit Provider, Attending Provider A ctive Team Status: Inactive Member Role Status Dates Amanda Ford APRN COATING MACHINE OPERATOR HELPER-C Primary Care Provider Active Jean Jett PA-C Emergency Provider Active Farhad Gallego MD Admit Provider, Attending Provider A ctive Team Status: Inactive Member Role Status Dates Amanda Ford APRN COATING MACHINE OPERATOR HELPER-C Primary Care Provider Active ANDREW GrecoC Attending Provider Active Team Status: Inactive Member Role Status Dates Provider Conversion Attending Provider Active St art: May 17, 2023 End: May 17, 2023 Team Status: Inactive Member Role Status Dates Amanda Ford APRN COATING MACHINE OPERATOR HELPER-C Primary Care Provider, Attending Provider Active Start: June 08, 2023 End: June 08, 2023 Team Status: Active Member Role Status Dates Amanda Ford APRN COATING MACHINE OPERATOR HELPER-C Primary Care Provider, Attending Provider Active Start: September 15, 2023 Team Status: Inactive Member Role Status Dates Amanda Ford APRN COATING MACHINE OPERATOR HELPER-C Primary Care Provider Active Start: October 13, 2023 End: October 13, 2023 Romeo Santana DO Attending Provider Active St art: October 13, 2023 End: October 13, 2023 Team Status: Inactive Member Role Status Dates Amanda Ford APRN COATING MACHINE OPERATOR HELPER-C Primary Care Provider Active Start: October 26, 2023 End: October 26, 2023 Romeo Santana DO Attending Provider Active St art: October 26, 2023 End: October 26, 2023 Team Status: Inactive Member Role Status Dates Amanda Ford APRN COATING MACHINE OPERATOR HELPER-C Primary Care Provider Active Start: November 01, 2023 End: November 01, 2023 Romeo Santana DO Attending Provider Active St art: November 01, 2023 End: November 01, 2023 Team Status: Inactive Member Role Status Dates Amanda Ford APRN COATING MACHINE OPERATOR HELPER-C Primary Care Provider Active Start: November 28, 2023 End: November 28, 2023 Romeo Santana DO Attending Provider Active St art: November 28, 2023 End: November 28, 2023 Team Status: Inactive Member Role Status Dates Amanda Ford APRN COATING MACHINE OPERATOR HELPER-C Primary Care Provider Active Start: December 01, 2023 End: December 01, 2023 Romeo Santana DO Attending Provider Active St art: December 01, 2023 End: December 01, 2023 Team Status: Inactive Member Role Status Dates Amanda Ford APRN COATING MACHINE OPERATOR HELPER-C Primary Care Provider Active Start: December 07, 2023 End: December 07, 2023 Romeo Santana DO Attending Provider Active St art: December 07, 2023 End: December 07, 2023 Team Status: Active Member Role Status Dates Amanda Ford APRN COATING MACHINE OPERATOR HELPER-C Primary Care Provider Active Start: November Romeo Santana DO Attending Provider, Other Provider Active Start: December 07, 2023 Team Status: Inactive Member Role Status Dates Amanda Ford APRN COATING MACHINE OPERATOR HELPER-C Primary Care Provider Active Start: December 192023 End: December 20, 2023 Romeo Santana DO Attending Provider Active St art: December 20, 2023 End: December 20, 2023 Team Status: Active Member Role Status Dates Amanda Ford APRN COATING MACHINE OPERATOR HELPER-C Primary Care Provider Active Start: December 182023 Romeo Santana DO Other Provider Active Start: January 10, 2024 Daniel Hampton MD Attending Provider Active Start: January 10, 2024 Team Status: Inactive Member Role Status Dates Amanda Ford APRN COATING MACHINE OPERATOR HELPER-C Primary Care Provider Active Start: January 17, 2024 End: January 17, 2024 Romeo Santana DO Attending Provider Active St art: January 17, 2024 End: January 17, 2024 Security Analyst Relationship Specialty Start Date End Date Amanda Ford COATING MACHINE OPERATOR HELPER [address] [facility] [address] PCP - [facility] Family Medicine 01/17/23 Security Analyst Relationship Specialty Start Date End Date Amanda Ford COATING MACHINE OPERATOR HELPER [address] [facility] [address] PCP - [facility] Family Medicine 01/17/23 Team Status: Inactive Member Role Status Dates Amanda Ford APRN COATING MACHINE OPERATOR HELPER-C Primary Care Provider Active Start: February 262023 End: February 27, 2024 Romeo Santana DO Attending Provider Active St art: February 27, 2024 End: February 27, 2024 Security Analyst Relationship Specialty Start Date End Date Amanda Ford NP PCP - General Family Medicine 01/17/23 Team Status: Active Member Role Status Dates Amanda Ford APRN COATING MACHINE OPERATOR HELPER-C Primary Care Provider Active Start: February Les Martinez DO Attending Provider Active Start : February 20, 2024 Team Status: Inactive Member Role Status Dates Amanda Ford APRN COATING MACHINE OPERATOR HELPER-C Primary Care Provider Active Start: April 23, 2024 End: April 23, 2024 Romeo Santana DO Attending Provider Active St art: April 23, 2024 End: April 23, 2024 Team Status: Inactive Member Role Status Dates Amanda Ford APRN COATING MACHINE OPERATOR HELPER-C Primary Care Provider, Attending Provider Active Start: April 26, 2024 End: April 26, 2024 Security Analyst Relationship Specialty Start Date End Date Amanda Ford NP [address] [place] [address] [place] [address] PCP - General Family Medicine 01/17/23 Security Analyst Relationship Specialty Start Date End Date Amanda Ford NP [address] [place] [address] [place] [address] PCP - General Family Medicine 01/17/23 Security Analyst Relationship Specialty Start Date End Date Amanda Ford NP [address] [place] [address] [place] [address] PCP - General Family Medicine 01/17/23 Security Analyst Relationship Specialty Start Date End Date Amanda Ford NP [address] [address] [place] [address] PCP - General Family Medicine 01/17/23 Team Status: Inactive Member Role Status Dates Amanda Ford APRN COATING MACHINE OPERATOR HELPER-C Primary Care Provider Active Start: October 18, 2024 End: October 18, 2024 Kassidy Arriaza DO Emergency Provider Active Start: October 18, 2024 End: October 18, 2024 Security Analyst Relationship Specialty Start Date End Date Amanda Ford NP [address] [address] [place] [address] PCP - General Family Medicine 01/17/23 Security Analyst Relationship Specialty Start Date End Date No Pcp, [place] [address] PCP - General Family Medicine 05/20/20 Security Analyst Relationship Specialty Start Date End Date No Pcp, [place] [address] PCP - General Family Medicine 05/20/20 Goals (unrecognized section and content) Goals may be documented in a n alternate section Source Comments (unrecognize d section and content) In the event this informatio n is protected by the Federal Confidentiality of Alcohol and Drug Abuse Patient Records regulations: The Federal rules restrict any use of the information to criminally investigate or prosecute any alcohol or drug abuse patient.[facility] the event this information is protected by the Federal Confidentiality of Alcohol and Drug Abuse Patient Records regulations: The Federal rules restrict any use of the information to criminally investigate or prosecute any alcohol or drug abuse patient.[facility] CenterIn the event this information is protected by the Federal Confidentiality of Alcohol and Drug Abuse Patient Records regulations: The Federal rules restrict any use of the information to criminally investigate or prosecute any alcohol or drug abuse patient.[facility] CenterIn the event this information is protected by the Federal Confidentiality of Alcohol and Drug Abuse Patient Records regulations: The Federal rules restrict any use of the information to criminally investigate or prosecute any alcohol or drug abuse patient.[facility] CenterIn the event this information is protected by the Federal Confidentiality of Alcohol and Drug Abuse Patient Records regulations: The Federal rules restrict any use of the information to criminally investigate or prosecute any alcohol or drug abuse patient.[facility] CenterIn the event this information is protected by the Federal Confidentiality of Alcohol and Drug Abuse Patient Records regulations: The Federal rules restrict any use of the information to criminally investigate or prosecute any alcohol or drug abuse patient.[facility] CenterIn the event this information is protected by the Federal Confidentiality of Alcohol and Drug Abuse Patient Records regulations: The Federal rules restrict any use of the information to criminally investigate or prosecute any alcohol or drug abuse patient.[facility] CenterIn the event this information is protected by the Federal Confidentiality of Alcohol and Drug Abuse Patient Records regulations: The Federal rules restrict any use of the information to criminally investigate or prosecute any alcohol or drug abuse patient.[facility] CenterIn the event this information is protected by the Federal Confidentiality of Alcohol and Drug Abuse Patient Records regulations: The Federal rules restrict any use of the information to criminally investigate or prosecute any alcohol or drug abuse patient.[facility] CenterIn the event this information is protected by the Federal Confidentiality of Alcohol and Drug Abuse Patient Records regulations: The Federal rules restrict any use of the information to criminally investigate or prosecute any alcohol or drug abuse patient.[facility] CenterIn the event this information is protected by the Federal Confidentiality of Alcohol and Drug Abuse Patient Records regulations: The Federal rules restrict any use of the information to criminally investigate or prosecute any alcohol or drug abuse patient.[facility] CenterIn the event this information is protected by the Federal Confidentiality of Alcohol and Drug Abuse Patient Records regulations: The Federal rules restrict any use of the information to criminally investigate or prosecute any alcohol or drug abuse patient.[facility] CenterIn the event this information is protected by the Federal Confidentiality of Alcohol and Drug Abuse Patient Records regulations: The Federal rules restrict any use of the information to criminally investigate or prosecute any alcohol or drug abuse patient.[facility] CenterIn the event this information is protected by the Federal Confidentiality of Alcohol and Drug Abuse Patient Records regulations: The Federal rules restrict any use of the information to criminally investigate or prosecute any alcohol or drug abuse patient.[facility] CenterIn the event this information is protected by the Federal Confidentiality of Alcohol and Drug Abuse Patient Records regulations: The Federal rules restrict any use of the information to criminally investigate or prosecute any alcohol or drug abuse patient.[facility] CenterIn the event this information is protected by the Federal Confidentiality of Alcohol and Drug Abuse Patient Records regulations: The Federal rules restrict any use of the information to criminally investigate or prosecute any alcohol or drug abuse patient.[facility] CenterIn the event this information is protected by the Federal Confidentiality of Alcohol and Drug Abuse Patient Records regulations: The Federal rules restrict any use of the information to criminally investigate or prosecute any alcohol or drug abuse patient.[facility] CenterIn the event this information is protected by the Federal Confidentiality of Alcohol and Drug Abuse Patient Records regulations: The Federal rules restrict any use of the information to criminally investigate or prosecute any alcohol or drug abuse patient.[facility] CenterIn the event this information is protected by the Federal Confidentiality of Alcohol and Drug Abuse Patient Records regulations: The Federal rules restrict any use of the information to criminally investigate or prosecute any alcohol or drug abuse patient.[facility] CenterIn the event this information is protected by the Federal Confidentiality of Alcohol and Drug Abuse Patient Records regulations: The Federal rules restrict any use of the information to criminally investigate or prosecute any alcohol or drug abuse patient.[facility] CenterIn the event this information is protected by the Federal Confidentiality of Alcohol and Drug Abuse Patient Records regulations: The Federal rules restrict any use of the information to criminally investigate or prosecute any alcohol or drug abuse patient.[facility] CenterIn the event this information is protected by the Federal Confidentiality of Alcohol and Drug Abuse Patient Records regulations: The Federal rules restrict any use of the information to criminally investigate or prosecute any alcohol or drug abuse patient.[facility] CenterIn the event this information is protected by the Federal Confidentiality of Alcohol and Drug Abuse Patient Records regulations: The Federal rules restrict any use of the information to criminally investigate or prosecute any alcohol or drug abuse patient.[facility] CenterIn the event this information is protected by the Federal Confidentiality of Alcohol and Drug Abuse Patient Records regulations: The Federal rules restrict any use of the information to criminally investigate or prosecute any alcohol or drug abuse patient.[facility] CenterIn the event this information is protected by the Federal Confidentiality of Alcohol and Drug Abuse Patient Records regulations: The Federal rules restrict any use of the information to criminally investigate or prosecute any alcohol or drug abuse patient.[facility] CenterIn the event this information is protected by the Federal Confidentiality of Alcohol and Drug Abuse Patient Records regulations: The Federal rules restrict any use of the information to criminally investigate or prosecute any alcohol or drug abuse patient.[facility] CenterIn the event this information is protected by the Federal Confidentiality of Alcohol and Drug Abuse Patient Records regulations: The Federal rules restrict any use of the information to criminally investigate or prosecute any alcohol or drug abuse patient.[facility] FOR RECORDS PERTAINING TO PATIENTS WHO ARE OR HAVE BEEN ENROLLED IN A CHEMICAL DEPENDENCY/SUBSTANCEABUSE PROGRAM, SOME INFORMATION MAY BE OMITTED. This clinical summary was aggregated from multiple sources. Caution should be exercised in using it in the provision of clinical care. This summary normalizes information from multiple sources, and as a consequence, information in this document may materially change the coding, format and clinical context of patient data. In addition, data may be omitted in some cases. CLINICAL DECISIONS SHOULD BE BASED ON THE PRIMARY CLINICAL RECORDS. [facility] [employer] [facility]. provides no warranty or guarantee of the accuracy or completeness of information in this document.
--- OUTSIDE RECORDS SUMMARY | 2024-11-17 09:50 | XMS_ITS | Clinical Summary ---
Author Organization [employer] tem Address [id number] [address] [place] [address] Care Team Providers Care Expense Analyst Name Role Phone No Pcp, No Pcp Primary Care Provider Unavailabl e Allergies Active Allergy Reactions Criticality Noted Date Comments Nsaids (Non-Steroidal Anti-I nflammatory Drug) 10/26/2024 Medications [id number] c acid ( 19) 29 mg iron- 1 mg tablet,chewable Chew 1 tablet and swallow in the morning. Active sertraline (ZOLOFT) 25 mg tablet Take 1 tablet (25 mg total) by mouth in the morning. Active docusate sodium (COLACE) 100 mg capsule Take 1 capsule (100 mg total) by mouth in the morning and 1 capsule (100 mg total) before bedtime. Active ferrous sulfate 325 (65 FE) MG tablet Take 1 tablet (325 mg total) by mouth daily with breakfast. Active levothyroxine (SYNTHROID, LEVOTHROID) 50 MCG tablet Take 1 tablet (50 mcg total) by mouth in the morning. Active Encounters Date Type Department Care Team Description 10/26/2024 Orders Only Maternal- Medicine at [facility] [address] [place] [phone] Ref Prov, Not In System 10/26/2024 Abstract Maternal- Medicine at [facility] [address] [place] [address] Latricia Garcia MD from Last 3 Months Family History Medical History Relation Name Comments Diabetes Father Hypertension Father Thyroid disease Father Diabetes Maternal Grandfather Skin cancer Mother Thyroid disease Mother Relation Name Status Comments Father Maternal Grandfather Mother Social History Tobacco Use Types Packs/Day Years Used Date Smoking Tobacco: Every Day Cigarettes 0.5 3 Smokeless Tobacco: Never Tobacco Cessation:Ready to Q uit: Not Asked; Counseling Given: Not Answered Alcohol Use Standard Drinks/Week Comments Not Currently 0 (1 standard drink = 0.6 oz pur e alcohol) Childcare Answer Date Recorded Childcare Unknown 05/20/2020 Employment Answer Date Recorded Employment Unknown 05/20/2020 Purpose - Life Answer Date Recorded Purpose and direction in life Unknown Comments No Sex and Gender Information Value Date Recorded Sex Assigned at Not on file Legal Sex Female 2:20 PM EST Gender Identity Not on file Sexual Orientation Not on file Plan of Treatment Upcoming Encounters Date Type Department Care Team (Late st Contact Info) Description 12/05/2024 1:00 PM EDT Appointment [facility] [address] [place] [phone] 12/05/2024 2:00 PM EDT Office Visit Maternal- Medicine at [facility] [address] [place] [address] Latricia Garcia MD [address] [facility], [address] [place] [id number] Health Maintenance Due Date Last Done Comments Tobacco Counseling 1995 Depression Screening 2007 Tobacco Screening 2007 Adult BMI Screening 2013 DTaP,Tdap and Td Vaccines (1 - Tdap) 2014 Pap Smear 2016 Influenza Vaccine 12/17/2024 Medical Devices Not on file Procedures Procedure Name Priority Date/Time Associated Diagnosis Comments UNLISTED LAB TEST Routine 10/18/2024 2:3 7 PM EDT UNLISTED LAB TEST Routine 10/16/2024 2:3 6 PM EDT TYPE AND SCREEN Routine 09/26/2024 HEPATITIS B SURFACE ANTIGEN Routine 09/26/2024 RUBELLA IGG IMMUNE STATUS Routine 09/26/2024 SYPHILIS TOTAL(UNKNOWN SYPHILIS STATUS) Routine 09/26/2024 HEMOGLOBIN A1C Routine 09/26/2024 HIV 1&2 AB/AG SCREEN (P24 AG) Routine 09/26/2024 ULTRASOUND OFFICE Routine 09/21/2024 2:0 6 PM EDT from Last 3 Months Results * Unlisted Lab Test (10/18/2024 2:37 PM EDT) Only the most recent of2 resultswithin the time period is included. us Not In System Ref Prov LAB BLOOD ORDERABLES Danna l Result Performing Organization Address City/[facility]/ZIP Co de Phone Number MANUALLY TRANSCRIBED RESULTS * HIV 1&2 AB/AG Screen (P24 AG) (09/26/2024) HIV 1&2 AB/AG non reactive MAN UALLY TRANSCRIBED RESULTS Blood Venous blood / Unknown us Not In System Ref Prov LAB BLOOD ORDERABLES Danna l Result Performing Organization Address City/[facility]/ZIP Co de Phone Number MANUALLY TRANSCRIBED RESULTS * Rubella IGG immune status (09/26/2024) Rubella immune IgG 2.78 MANUALLY TRANSCRIBED RESULTS Blood Venous blood / Unknown us Not In System Ref Prov LAB BLOOD ORDERABLES Danna l Result MANUALLY TRANSCRIBED RESULTS * Syphilis Total (Unknown Syphilis Status) (09/26/2024) Syphilis non reactive MANUALL Y TRANSCRIBED RESULTS Blood Venous blood / Unknown us Not In System Ref Prov LAB BLOOD ORDERABLES Danna l Result MANUALLY TRANSCRIBED RESULTS * Hepatitis B surface antigen (09/26/2024) Hepatitis B Surface Antigen negative MANUALLY TRANSCRIBED RESULTS Blood Venous blood / Unknown us Not In System Ref Prov LAB BLOOD ORDERABLES Danna l Result Performing Organization Address City/[facility] Co de Phone Number MANUALLY TRANSCRIBED RESULTS * Type and screen (09/26/2024) Abo/Rh(D) O Positive MANUALLY TRANSCRIBED RESULTS Antibody Screen negative MANUALLY TRANSCRIBED RESULTS Blood Venous blood / Unknown us Not In System Ref Prov BLOOD BANK TEST ORDERABLE S Final Result Performing Organization Address [facility] Co de Phone Number MANUALLY TRANSCRIBED RESULTS * Hemoglobin A1c (09/26/2024) Hemoglobin A1C 4.8 4.0 - 6.0 % MANUALLY TRANSCRIBED RESULTS Blood Venous blood / Unknown us Scanning Provider External LAB BLOOD ORDERABLES Final Result Performing Organization Address [facility] Co de Phone Number MANUALLY TRANSCRIBED RESULTS * Ultrasound - Office (09/21/2024 2:06 PM EDT) Anatomical Region Laterality Modality AMB Ultrasound us Not In System Ref Prov IMG US ORDERABLES Final R esult from Last 3 Months Insurance [facility] MEDICAID Care Teams Expense Analyst Relationship Specialty Start Date End Date No Pcp, [place] [address] PCP - General Family Medicine 05/20/20
--- OUTSIDE RECORDS SUMMARY | 2024-11-17 09:50 | XMS_ITS | Encounter Summary ---
Author Organization [facility] Address [address] [place] [address] Care Team Providers Care Multiple Slide Operator Name Role Phone Jovaninikkie Amanda Nikole VP DIRECTOR OF FINANCE Primary Care Provider Encounter Details Date Type Department Care Team (Late Contact Info) Description 09/20/2024 Abstract [facility] [address] [email or web address] [address] Les Martinez DO [address] [facility] [place], [place] [address] Social History Tobacco Use Types Packs/Day Years [...] 8:40 AM EDT Routine [facility] [address] [facility] [place] [place] [phone] Les Martinez, DO [address] [place] [address] 02/20/2025 1:00 PM EST Office Visit [facility] [address] [facility] [place] [phone] Les Martinez, DO [address] [facility] [place] [place], [place] [id number] 08/21/2025 9:30 AM EDT Office Visit [facility] [address] [place] [phone] Darleen Sinclair MD [address] [place] [address] documented as of this encounter Visit Diagnoses Not on filedocumented in this encounter Care Teams Multiple Slide Operator Relationship Specialty Start Date End Date Amanda Ford NP [address] [facility] [place] [address] PCP - General Family Medicine 01/17/23 documented as of this encounter
--- OUTSIDE RECORDS SUMMARY | 2024-11-17 09:50 | XMS_ITS | Encounter Summary ---
Author Organization [facility] Address [address] [place] [address] Care Team Providers Care Crop Ranch Hand Name Role Phone Amanda Ford DIRECTOR OF COMMUNITY SERVICES Primary Care Provider Encounter Details Date Type Department Care Team (Late st Contact Info) Description 01/19/2023 Clinisync Result Encounter [facility] External Department Unsolicited Basim Martinez, DO [address] [place] [address] Social History Tobacco Use Types Packs/Day Years [...] AM EDT Routine [facility] [address] [place] [phone] Basim Martinez DO [address] [place] [address] 02/20/2025 1:00 PM EST Office Visit [facility] [place] [facility] [address] [facility] [phone] Baism Martinez DO [address] [facility] [place] [address] 08/21/2025 9:30 AM EDT Office Visit [facility] [address] [place] [address] Darleen Sinclair MD [address] [place] [address] documented as of this encounter Procedures Procedure Name Priority Date/Time Associated Diagnosis Comments US PELVIS TRANSVAGINAL 3:46 PM EDT [facility] PROLACTIN Routine 01/19/2023 2:10 PM EDT ALL LUTEINIZING HORMONE Routine 01/20/20 2:10 PM EDT ALL FOLLICLE STIMULATING HORMONE Routine 01/19/2023 2:10 PM EDT ALL DHEA SULFATE Routine 01/19/2023 2:10 PM EDT ALL DEHYDROEPIANDROSTERONE Routine 01/19 2:10 PM EDT ALL ANTI-MULLERIAN HORMONE Routine 01/19 2:10 PM EDT documented in this encounter Results * US PELVIS TRANSVAGINAL (01/19/2023 3:46 PM EDT) Anatomical Region Laterality Modality Other 01/19/2023 3:46 PM EDT Narrative 01/19/2023 3:46 PM EDT The [address] [address] Ultrasound Report Signed Patient: GUZMAN DEL CID MR#: [id number] : 1995 Acct:[id number] Age/Sex: 27 / F ADM Date: 01/19/23 Loc: US Attending Dr: Basim Martinez D.O. Ordering Physician: Basim Martinez D.O. Date of Service: 01/19/23 Procedure(s): US pelvis transvaginal Accession Number(s): [id number] cc: Basim Martinez D.O.; AMANDA FORD [place] [id number] Patient Name: GUZMAN DEL CID MRN: [id number] date: 1995 Sex: F Assigned Patient Location: US Current Patient Location: US Accession/Order Number: [id number] Exam Date: 01/19/2023 14:15 Report Date: 01/19/2023 15:46 At the request of: BASIM MARTINEZ Procedure: US pelvis transvaginal EXAM: US pelvis transvaginal HISTORY: N92.6, N94.89, N92.1 irregular menses. Infertility. COMPARISON: None. TECHNIQUE: Realtime transvaginal imaging of the pelvis. Findings: The uterus measures 7.6 x 3.0 x 3.8 cm. Unremarkable parenchymal echotexture. No intrauterine mass. The endometrium is 0.2 cm thick. No fluid within the endometrial canal. Nabothian cysts. The right and left ovaries measure 3.2 x 1.5 x 2.2 and 2.0 x 1.2 x 2.4 cm. Bilateral ovarian follicles. Blood flow is identified bilaterally. No adnexal mass or free pelvic fluid. US/US pelvis transvaginal IMPRESSION: 1. Unremarkable sonographic appearance of the pelvis for age. Electronically authenticated by: EDEL MCDOWELL Date: 01/19/2023 15:46 Dictated By: Edel Mcdowell M.D. Signed By: 01/19/23 1549 DD/ 1546 TD/TT: It Manager: Procedure Note Radiology, Radiologist, MD - 01/19/2023 [place] [address] Ultrasound Report Signed Patient: GUZMAN DEL CIDMR#: [id number] : 1995Acct:[id number] Age/Sex: 27 / FADM Date: 01/19/23 Loc: US Attending Dr: Basim Martinez D.O. Ordering Physician: Basim Martinez D.O. Date of Service: 01/19/23 Procedure(s): US pelvis transvaginal Accession Number(s): [id number] cc: Basim Martinez D.O.; AMANDA FORD [place] [address] Patient Name: GUZMAN DEL CID MRN: [id number] date: 1995 Sex: F Assigned Patient Location: US Current Patient Location: US Accession/Order Number: [id number] Exam Date: 01/19/2023 14:15 Report Date: 01/19/2023 15:46 At the request of: BASIM MARTINEZ Procedure: US pelvis transvaginal EXAM: US pelvis transvaginal HISTORY: N92.6, N94.89, N92.1 irregular menses. Infertility. COMPARISON: None. TECHNIQUE: Realtime transvaginal imaging of the pelvis. Findings: The uterus measures 7.6 x 3.0 x 3.8 cm. Unremarkable parenchymalechotexture. No intrauterine mass. The endometrium is 0.2 cm thick. No fluid within the endometrial canal. Nabothian cysts. The right and left ovaries measure 3.2 x 1.5 x 2.2 and 2.0 x 1.2 x 2.4 cm. Bilateral ovarian follicles. Blood flow is identified bilaterally. No adnexal mass or free pelvic fluid. US/US pelvis transvaginal IMPRESSION: 1. Unremarkable sonographic appearance of the pelvis for age. Electronically authenticated by: EDEL MCDOWELL Date: 01/19/2023 15:46 Dictated By: Edel Mcdowell M.D. Signed By:01/19/23 1549 DD/ 1546 TD/TT: It Manager: us Basim Juan DO [facility] Final Result * ALL DEHYDROEPIANDROSTERONE (01/19/2023 2:10 PM EDT) DHEA, SERUM 141 31 - 701 ng/dL [facility] Comment: This test was developed and its performance characteristics determined by [facility]. It has not been cleared or approved by the Food and Drug Administration. Performed at: [address] [id number] Prototype Fabricator: Jon Horton MD, Phone: [phone] 01/19/2023 2:10 PM EDT 01/19/2023 2:12 PM EDT Narrative [facility] - 01/25/2023 6:07 PM EDT [facility] Juan DO [facility] Final Result [facility] * ALL ANTI-MULLERIAN HORMONE (01/19/2023 2:10 PM EDT) Pathologist [facility] ANTI-MULLERIAN HORMONE (AMH) 0.895 . ng/mL [facility] Comment: For assays employing antibodies, the possibility exists for interference by heterophile antibodies in the samples.1 1.Yessenia [place]field. Interferences in Immunoassays - still a threat. Clin. Chem. 2000; 46: 5796-6362. This test was developed and its performance characteristics determined by [facility]. It has not been cleared or approved by the Food and Drug Administration. Reference Range: Females 26 - 30y: 1.03 - 11.10 Median 4.20 AMH concentrations of >= 1.06 ng/mL is correlated with a better response to ovarian stimulation, produced more retrievable oocytes and higher odds of live according to Gleicher et al. Fertility and Sterility. 2010: 94:8808-3996. The current AMH test method correlates with the study method with a slope of 0.94. Females at risk of ovarian hyperstimulation syndrome or polycystic ovarian syndrome (PCOS) may exhibit elevated serum AMH concentrations. AMH levels from PCOS patients may be 2 to 5 fold higher than age-appropriate reference interval values. Granulosa cell tumors of the ovary may secrete AMH along with other tumor markers. Elevated AMH is not specific for malignancy, and the assay should not be used exclusively to diagnose or exclude an AMH-secreting ovarian tumor. Performed at: [facility] [address] [place] [id number] Prototype Fabricator: James Pereyra MD, Phone: [phone] 01/19/2023 2:1 0 PM EDT 01/19/2023 2:12 PM EDT Narrative [facility] - 01/23/2023 8:07 PM EDT us Basim Juan DO [facility] Final Result [facility] * (ABNORMAL) TBH PROLACTIN (01/19/2023 2:10 PM EDT) PROLACTIN 4.4(A) 4.8 - 23.3 ng/mL [facility] Comment: Performed at: - [facility] [id number] Prototype Fabricator: Isaac Dietz PhD, Phone: [phone] 01/19/2023 2:10 PM EDT 01/19/2023 2:12 PM EDT Narrative [facility] - 01/20/2023 4:07 AM EDT us Basim Juan DO [facility] Final Result Performing Organization Address City/[facility]/ZIP Co de Phone Number [facility] TB * ALL FOLLICLE STIMULATING HORMONE (01/19/2023 2:10 PM EDT) FSH 8.4 . mIU/mL [facility] Comment: Adult Female: Follicular phase 3.5 - 12.5 Ovulation phase 4.7 - 21.5 Luteal phase 1.7 - 7.7 Postmenopausal 25.8 - 134.8 01/19/2023 2:1 0 PM EDT 01/19/2023 2:12 PM EDT Narrative [facility] - 01/20/2023 4:07 AM EDT us Basim Juan DO [facility] Final Result Performing Organization Address City/[facility]/ZIP Co de Phone Number [facility] * ALL LUTEINIZING HORMONE (01/19/2023 2:10 PM EDT) LUTEINIZING HORMONE(LH) 7.7 . mIU/mL [facility] Comment: Adult Female: Follicular phase 2.4 - 12.6 Ovulation phase 14.0 - 95.6 Luteal phase 1.0 - 11.4 Postmenopausal 7.7 - 58.5 01/19/2023 2:10 PM EDT 01/19/2023 2:12 PM EDT Narrative CL[facility]NC - 01/20/2023 4:07 AM EDT Basim Juan DO [facility] Final Result Performing Organization Address [facility]/ZIP Co de Phone Number [facility] * ALL DHEA SULFATE (01/19/2023 2:10 PM EDT) DHEA-SULFATE 91.4 84.8 - 378.0 ug/dL [facility] 01/19/2023 2:10 PM EDT 01/19/2023 2:12 PM EDT Narrative [facility] - 01/20/2023 4:07 AM EDT Basim Juan DO [facility] Final Result Performing Organization Address City/[facility]/ZIP Co de Phone Number [facility] documented in this encounter Visit Diagnoses Not on filedocumented in this encounter Care Teams Crop [place] Hand Relationship Specialty Start Date End Date Amanda Ford NP [address] [facility] [place] [address] [place] [address] PCP - General Family Medicine 01/17/23 documented as of this encounter
--- NOTE | 2024-11-17 10:00 | US_ITS ---
[place] [id number] Patient Name: GUZMAN DEL CID MRN: [id number] date: 1995 Sex: F Assigned Patient Location: ER Current Patient Location: ER Accession/Order Number: [id number] Exam Date: 11/17/2024 10:53 Report Date: 11/17/2024 10:56 At the request of: BELLA BORREGO MD Procedure: US OB limited US OB limited 11/17/2024 10:31 AM SIGNS AND SYMPTOMS: ^18 weeks ago ^Spotting, fell 5 days ago \S.br\ COMPARISON: None. TECHNIQUE: Transabdominal sonographic imaging of the gravid uterus. FINDINGS: An intrauterine is identified. The visualized fetus has an estimated gestational age of 17 weeks 4 days . A heart rate is identified at 143 bpm. A normal amount of amniotic fluid is present. There is no evidence for placenta previa or subchorionic hemorrhage. Pelvic survey reveals no gross abnormalities. The cervix measures 3.4 cm in length US/US OB limited IMPRESSION: Single live IUP with an estimated gestational age of 17 weeks and 4 days with a normal heart rate. Impression dictated by: Zachary Simon M.D. 11/17/2024 10:56 AM Dictation Location: [facility] Electronically authenticated by: [id number] Y Date: 11/17/2024 10:56
--- NOTE | 2024-11-17 10:01 | ED.GENADUL1 ---
HPI HPI - General Adult General Chief complaint: Vaginal Bleeding Stated complaint: 18 WEEKS SPOTTING FALL Time Seen by Provider: 11/17/24 09:57 Source: patient and friend Mode of arrival: walk-in Limitations: no limitations History of Present Illness HPI narrative: 29-year-old female presents for vaginal spotting. She is currently , about 18 weeks. 5 days ago she fell several feet off of a bunk bed stepladder and landed on her back. She did not hit her head and does not have any back pain. Last night she started having some spotting. No complaints of abdominal pain or vomiting. Related Data Home Medications ?Medication ?Instructions ?Recorded ?Confirmed docusate sodium 100 mg capsule 100 mg PO DAILY 11/17/24 11/17/24 lamotrigine 200 mg tablet 200 mg PO DAILY 11/17/24 11/17/24 lansoprazole 30 mg capsule,delayed 30 mg PO DAILY 11/17/24 11/17/24 release levothyroxine 50 mcg tablet 50 mcg PO DAILY 11/17/24 11/17/24 polysaccharide iron complex 180 mg 180 mg PO BID 11/17/24 11/17/24 iron capsule (Pro Fe) quetiapine 25 mg tablet 25 mg PO .qhs 11/17/24 11/17/24 sertraline 25 mg tablet 25 mg PO DAILY 11/17/24 11/17/24 Allergies Allergy/AdvReac Type Severity Reaction Status Date / Time No Known Drug Allergies Allergy Verified 11/17/24 09:50 Review of Systems ROS Narrative A ten point review of systems is negative except as noted above. PFSH PFSH Social History Little interest or pleasure in doing things: not at all Feeling down, depressed, or hopeless: not at all Exam Narrative Exam Narrative: Nurses note and vital signs reviewed and patient is not hypoxic. General: The patient appears well and in no apparent distress. Patient is resting comfortably on cart. Skin: Warm, dry, no pallor noted. There is no rash noted. Head: Normocephalic, atraumatic Eye: Normal conjunctiva, no drainage Ears, Nose, Mouth, and Throat: oral mucosa is moist. Nares patent. Cardiovascular: Regular Rate and Rhythm Respiratory: Patient is in no distress, no accessory muscle use, lungs are clear to auscultation, no wheezing, rales or rhonchi Back: non-tender along the cervical, thoracic, and lumbar spines. No tenderness elsewhere GI: Soft and nontender Musculoskeletal: All joints have full range of motion Neurological: A&O, normal speech Psychiatric: Cooperative Constitutional Vital Signs, click to edit/add: Last Vital Signs Temp 97.9 F 11/17/24 09:50 Pulse 61 11/17/24 09:50 Resp 18 11/17/24 09:50 BP 137/68 11/17/24 09:50 Pulse Ox 97 11/17/24 09:50 O2 Del Method Room Air 11/17/24 09:50 Course Vital Signs Vital signs: Vital Signs Temperature 97.9 F 11/17/24 09:50 Pulse Rate 61 11/17/24 09:50 Respiratory Rate 18 11/17/24 09:50 Blood Pressure 137/68 11/17/24 09:50 Pulse Oximetry 97 11/17/24 09:50 Oxygen Delivery Method Room Air 11/17/24 09:50 Temperature 97.9 F 11/17/24 09:50 Pulse Rate 61 11/17/24 09:50 Respiratory Rate 18 11/17/24 09:50 Blood Pressure 137/68 11/17/24 09:50 Pulse Oximetry 97 11/17/24 09:50 Oxygen Delivery Method Room Air 11/17/24 09:50 Medical Decision Making MDM Narrative Medical decision making narrative: Ultrasound shows live IUP. Findings are discussed with the patient and she is discharged home. UA negative. 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 Treatment diagnosis and follow-up were discussed with the patient. Differential Diagnosis Differential Diagnosis: Miscarriage, subchorionic hemorrhage, threatened Lab Data Lab results reviewed: Yes I reviewed the patient's lab results Labs: Lab Results 11/17/24 Range/Units 10:06 Urine Color Lt. yellow (YELLOW) Urine Clarity Clear (CLEAR) Urine pH 7.5 (5.0-9.0) Ur Specific [place] 1.010 (1.005-1.025) Urine Protein Negative (NEG/TRACE) mg/dL Urine Glucose (UA) Negative (NEGATIVE) mg/dL Urine Ketones Negative (NEGATIVE) mg/dL Urine Occult Blood Negative (NEGATIVE) Urine Nitrite Negative (NEGATIVE) Urine Bilirubin Negative (NEGATIVE) Urine Urobilinogen 1.0 (0.2-1.0) EU/dL Ur Leukocyte Esterase Negative (NEGATIVE) Urine RBC None seen (0-2) #/HPF Urine WBC None seen (NONE SEEN) #/HPF Ur Squamous Epith Cells Rare (NONE/RARE) #/LPF Urine Crystals None seen (None Seen) #/HPF Urine Bacteria Trace A (NONE SEEN) #/HPF Urine Casts None seen (NONE SEEN) #/LPF Urine Mucus None seen (NONE SEEN) Ur Culture Indicated? No Imaging Data Pelvic ultrasound: Radiologist's impression: ITS Impressions Obstetrics Ultrasound 11/17/24 10:00 IMPRESSION: Single live IUP with an estimated gestational age of 17 weeks and 4 days with a normal heart rate. Impression dictated by: Zachary Simon M.D. 11/17/2024 10:56 AM Dictation Location: [employer] Electronically authenticated by: [id number] Y Date: 11/17/2024 10:56 Discharge Plan Discharge Chief Complaint: Vaginal Bleeding Clinical Impression: Vaginal bleeding in Patient Disposition: Home, Self-Care Time of Disposition Decision: 11:06 Condition: Good Mode of Transportation: Private Vehicle Prescriptions / Home Meds: No Action docusate sodium 100 mg capsule 100 mg PO DAILY lamotrigine 200 mg tablet 200 mg PO DAILY lansoprazole 30 mg capsule,delayed release(DR/EC) 30 mg PO DAILY levothyroxine 50 mcg tablet 50 mcg PO DAILY quetiapine 25 mg tablet 25 mg PO .qhs sertraline 25 mg tablet 25 mg PO DAILY Pro Fe 180 mg iron capsule 180 mg PO BID Print Language: Uzbek Additional Instructions: See Dr. Martinez at your appointment on Tuesday. Referrals: NAVIN HEWITT [Primary Care Provider, Unknown] - 1 week
--- NOTE | 2024-11-17 10:01 | PC.NURSE ---
pt fell off small ladder a few days ago and landed on back. yesterday had 1 bout of spotting with wiping. denies any pain or cramping
[2024-11-17 10:20] LABS: Glucose Urine UA NEGATIVE (NEGATIVE)
[2024-11-17 10:34] LABS: Cast Seen? NONE SEEN #/LPF (NONE SEEN); Crystals Seen? None Seen #/HPF (None Seen)
[2024-11-17 10:35] LABS: Urine Culture Indicated NO
== END 2024-11-17 11:15 | disposition home or self-care (01) ==
PROVIDERS: Emergency Provider Emergency Medicine; PCP Nurse Practitioner Family
DX: O20.9 Hemorrhage in early pregnancy, unspecified (principal); Z3A.17 17 weeks gestation of pregnancy
CPT/HCPCS: 76815; 81001; 99284

== ENCOUNTER 2024-11-20 10:19 | Outpatient (OUT) | payer MEDICAID, SELFPAY ==
--- OUTSIDE RECORDS SUMMARY | 2024-11-20 08:40 | XMS_ITS | Encounter Summary ---
Author Organization [facility] Address [address] [place] [address] Care Team Providers Care Billet Grinder Name Role Phone Amanda Ford COLOR CORRECTOR Primary Care Provider Reason for Visit * Reason Comments Routine Visit Encounter Details Date Type Department Care Team (Latest Contact Info) Description 11/20/2024 8:40 AM EDT Routine [facility] [address] [facility] [phone] Les Martinez DO [address] [facility] [address] [place], [facility] Well woman exam with routine gynecological exam; Exposure to STD; Second trimester ([facility]); 18 weeks gestation of ([facility]); Need for maternal serum alpha-protein (MSAFP) screening ([facility]); Screening, , for anatomic survey ([facility]); Thyroid disease Social History Tobacco Use Types Packs/Day Years [...] on file documented as of this encounter Last Filed Vital Signs Vital Sign Reading Time Taken Comments Blood Pressure 114/64 11/20/2024 9:10 AM EDT Pulse - - Temperature - - Respiratory Rate - - Oxygen Saturation - - Inhaled Oxygen Concentration - - Weight 116 kg (256 lb) 11/20/2024 9:10 AM EDT Height - - Body Mass Index 35.7 08/22/2024 10:04 AM EDT documented in this encounter Progress Notes * Alanagaudencio Valverde, YANDEL - 11/20/2024 8:40 AM EDT Reason for Appointment: Patient ID: Jaz Sanders is a 29 y.o. female who presents for Routine Visit Patient presents today for STD Check. and Return OB appointment. MEDICATIONS Current Outpatient Medications Medication Instructions docusate sodium (Colace) 100 MG capsule Every 24 hours lansoprazole (PREVACID) 30 mg, Daily levothyroxine (SYNTHROID, LEVOXYL) 50 mcg, Oral, Daily before breakfast ProFe 391.3 (180 Fe) MG capsule TAKE 1 CAPSULE BY MOUTH TWICE DAILY IN THE MORNING AND BEFORE BEDTIME QUEtiapine (SEROQUEL) 25 mg, Nightly sertraline (ZOLOFT) [...] Age of Onset Skin cancer Mother Julieta nunez Obesity Mother Julieta nunez Thyroid disease Mother Julieta nunez Diabetes Father Delbert nunez Thyroid disease Father Delbert nunez Hypertension Father Delbert nunez Diabetes Paternal Grandfather Ayaan Easton SURGICAL HISTORY [...] appearance. She is well-developed. Genitourinary: Vulva normal. Cardiovascular: Rate and Rhythm: Normal rate and [...] nursing note reviewed. Exam conducted with a erecting engineer present. Vitals: Estimated body mass index is 35.7 kg/m?? as calculated from the following: Height as of 08/22/24: 5' 11 . Weight as of this encounter: 256 lb. BP: 114/64 No LMP recorded. Patient is . ASSESSMENT & PLAN ICD-10-CM 1. Well woman exam with routine gynecological exam Z01.419 2. Exposure to STD Z20.2 SURESWAB(R) ADVANCED VAGINITIS PLUS, TMA CHLAMYDIA TRACHOMATIS (GENITO/STI) Neisseria gonorrhea DNA probe, direct 3. Second trimester ([facility]) Z34.92 POCT urinalysis dipstick manually resulted 4. 18 weeks gestation of ([facility]) Z3A.18 5. Need for maternal serum alpha-protein (MSAFP) screening ([facility]) Z36.1 Alpha fetoprotein, maternal Alpha fetoprotein, maternal 6. Screening, , for anatomic survey ([facility]) Z36.89 US OB 14+ weeks anatomy scan Return OB/Annual Exam: Patient presents today for a cultures/routine obstetrics appointment. Patient is currently 18w0d . Patient states she is doing well but has complaints of nausea in the morning. Cultures was obtained without difficulty and patient was given orders for anatomy scan and msAFP to be obtained. Orders Placed This Encounter Procedures US OB 14+ weeks anatomy scan CHLAMYDIA TRACHOMATIS (GENITO/STI) Neisseria gonorrhea DNA probe, direct Alpha fetoprotein, maternal POCT urinalysis dipstick manually resulted Follow Up: Patient is to schedule annual exam for next year and return to office in 4 weeks for OB appointment. Documented by Alana Valverde LPN on behalf of: Les Martinez DO documented in this encounter Plan of Treatment Upcoming Encounters Date Type Department Care Team (Late st Contact Info) Description 12/04/2024 8:30 AM EDT Ancillary Procedure GUDELIA HERNANDEZ [address] [place] [address] 12/19/2024 10:00 AM EDT Routine [facility] [address] [place] [address] Jojo Ames PA [address] [place] [address] 02/20/2025 1:00 PM EST Office Visit GUDELIA HERNANDEZ [address] [place] [address] Les Martinez, DO [address] [place] [address] 08/21/2025 9:30 AM EDT Office Visit [facility] [place] [facility] [address] [place] [address] Darleen Sinclair MD [address] [place] [address] Scheduled Orders Name Type Priority Associated Diagnoses Order Schedule SURESWAB(R) ADVANCED VAGINITIS PLUS, TMA Pathology and Cytology Routine Exposure to STD Ordered: 11/20/2024 CHLAMYDIA TRACHOMATIS (GENITO/STI) Lab Routine Exposure to STD Ordered: 11/20/2024 Neisseria gonorrhea DNA probe, direct Lab Routine Exposure to STD Ordered: 11/20/2024 Alpha fetoprotein, maternal Lab Routine Need for maternal serum alpha-protein (MSAFP) screening ([facility]) Expected: 11/20/2024 (Approximate), Expires: 12/21/2024 OB 14+ weeks anatomy scan Imaging Routine Screening, , for anatomic survey ([facility]) Expected: 11/20/2024 (Approximate), Expires: 02/20/2025 TSH Lab Routine Thyroid disease every 4 weeks for 6 Occurrences starting 11/20/2024 until 11/20/2025 documented as of this encounter Goals Goal Patient Goal Type Associated Problems Recent Progress Patient-Stated? Author Reminders Care Plan OB Reminders No Open Scheduling, Background documented as of this encounter Procedures Procedure Name Priority Date/Time Associated Diagnosis Comments POCT URINALYSIS DIPSTICK Routine 11/20/2024 9:12 AM EDT Second trimester ([facility]) documented in this encounter Results * (ABNORMAL) POCT urinalysis dipstick manually resulted (11/20/2024 9:12 AM EDT) Color, UA Yellow Clarity, UA Clear Glucose, UA Negative Negative - 2000(110) ++++ mg/dL Bilirubin, UA Negative Negative - 4(70) +++ mg/dL Ketones, UA Negative Negative - 160(16) ++++ mg/dL Spec Grav, UA 1.010 1 - 1.03 Blood, UA Negative Negative - 50 Yehuda/mcL pH, UA 8.0 5 - 9 Protein, UA Negative Negative - 2000(20) ++++ mg/dL Urobilinogen, UA 1.0 0.2 - 12 mg/dL Leukocytes, UA 2+ Negative - 500+++ Kourtney/mcL Nitrite, UA Negative Negative - Positive Urine 11/20/2024 9:12 AM EDT Les Martinez DO POINT OF CARE TEST ENTER/EDIT OR DERABLES Final Result documented in this encounter Visit Diagnoses Diagnosis Well woman exam with routine gynecological exam Routine gynecological examination Exposure to STD Second trimester ([facility]) state, incidental 18 weeks gestation of ([facility]) Need for maternal serum alpha-protein (MSAFP) screening ([facility]) Screening, , for anatomic survey ([facility]) Encounter for anatomic survey Thyroid disease Unspecified disorder of thyroid documented in this encounter Additional Health Concerns Active Problems Noted Date Diagnosed Date OB Reminders 10/22/2024 documented as of this encounter Care Teams Billet Grinder Relationship Specialty Start Date End Date Amanda Ford NP [address] [place], [place] [id number] PCP - General Family Medicine 01/17/23 documented as of this encounter
--- OUTSIDE RECORDS SUMMARY | 2024-11-20 10:22 | XMS_ITS | Encounter Summary ---
Author Organization [facility] Address [address] [place] [address] Care Team Providers Care Risk Management Internship Name Role Phone Unavailable Primary Care Provider Unavailabl e Source Comments In the event this information is protected by the Federal Confidentiality of Alcohol and Drug AbusePatient Records regulations: The Federal rules restrict any use of the information to criminally investigate or prosecute any alcohol or drug abuse patient.[facility] Encounter Details Date Type Department Care Team (Late st Contact Info) Description 09/03/2024 Patient Msg Reproductive Endocrinology Infertility [address] [facility] [place] [address] Manisha Powell APRN.ROAD PASSENGER FIRER [address] [facility] [address] Congratulations!!! Social History Tobacco Use Types Packs/Day Years Used Date Smoking Tobacco: Never Assessed Area Deprivation Index Answer Date Claudio rded National Score (1-100), lower number is lower ri sk 82 02/28/2024 State Score (1-10), lower number is lower risk 7 02/28/2024 Data from: https://www.neighborhoodatlas.medicine.[facility].edu/. Last address used for calculation [address] 02/28/2024 Comments Yes Sex and Gender Information Value Date Recorded Sex Assigned at Not on file Legal Sex Female 12:45 PM EDT Gender Identity Not on file Sexual Orientation Not on file documented as of this encounter Plan of Treatment Not on file documented as of this encounter Visit Diagnoses Not on filedocumented in this encounter
--- OUTSIDE RECORDS SUMMARY | 2024-11-20 10:23 | XMS_ITS | Encounter Summary ---
Author Organization [facility] Address [address] [place] [address] Care Team Providers Care Senior Health Educator Name Role Phone Unavailable Primary Care Provider Unavailabl e Source Comments In the event this information is protected by the Federal Confidentiality of Alcohol and Drug AbusePatient Records regulations: The Federal rules restrict any use of the information to criminally investigate or prosecute any alcohol or drug abuse patient.[facility] Encounter Details Date Type Department Care Team (Latest Contact Info) Description 05/09/2024 Patient Msg Reproductive Endocrinology Infertility [address] [place] [address] Shelly Hernandez APRN.ELECTRICIAN AIRCRAFT [address] [place] [address] Summary of Next Steps Social History Tobacco Use Types Packs/Day Years Used Date Smoking Tobacco: Never Assessed Area Deprivation Index Answer Date Claudio rded National Score (1-100), lower number is lower ri sk 82 02/28/2024 State Score (1-10), lower number is lower risk 7 02/28/2024 Data from: https://www.neighborhoodatlas.medicine.[facility].edu/. Last address used for calculation [address] [...]
--- OUTSIDE RECORDS SUMMARY | 2024-11-20 10:23 | XMS_ITS | Clinical Summary ---
Author Organization [employer] Address [id number] [address] [place] [address] Care Team Providers Care I O Psychologist Name Role Phone No Pcp, No Pcp Primary Care Provider Unavailabl e Allergies Active Allergy Reactions Criticality Noted Date Comments Nsaids (Non-Steroidal Anti-I nflammatory Drug) 10/26/2024 Medications [id number] c acid ( 19) 29 mg iron- [...] Description 10/26/2024 Orders Only Maternal- Medicine at [facility] [address] [place] [phone] Ref Prov, Not In System 10/26/2024 Abstract Maternal- Medicine at [facility] [address] [place] [address] Latricia Garcia MD from Last [...] Info) Description 12/05/2024 1:00 PM EDT Appointment [facility] [address] [place] [phone] 12/05/2024 2:00 PM EDT Office Visit Maternal- Medicine at [facility] [address] [place] [address] Latricia Garcia MD [address] COUNT INCLUDES [facility], [address] [place] [address] Health Maintenance Due Date Last Done Comments [...] ORDERABLES Danna l Result Performing Organization Address City/[facility]/ZIP Co de Phone Number MANUALLY TRANSCRIBED RESULTS * HIV 1&2 AB/AG Screen (P24 AG) (09/26/2024) HIV 1&2 AB/AG non reactive MAN UALLY TRANSCRIBED RESULTS Blood Venous blood / Unknown us Not In System Ref Prov LAB BLOOD ORDERABLES Danna l Result Performing Organization Address City/[facility]/ZIP Co de Phone Number MANUALLY TRANSCRIBED RESULTS [...] ORDERABLES Danna l Result Performing Organization Address City/[facility] Co de Phone Number MANUALLY TRANSCRIBED RESULTS * Type and screen (09/26/2024) Abo/Rh(D) O Positive MANUALLY TRANSCRIBED RESULTS Antibody Screen negative MANUALLY TRANSCRIBED RESULTS Blood Venous blood / Unknown us Not In System Ref Prov BLOOD BANK TEST ORDERABLE S Final Result Performing Organization Address [facility] Co de Phone Number MANUALLY TRANSCRIBED RESULTS * Hemoglobin A1c (09/26/2024) Hemoglobin A1C 4.8 4.0 - 6.0 % MANUALLY TRANSCRIBED RESULTS Blood Venous blood / Unknown us Scanning Provider External LAB BLOOD ORDERABLES Final Result Performing Organization Address [facility] Co de Phone Number MANUALLY TRANSCRIBED RESULTS * Ultrasound - Office (09/21/2024 2:06 PM EDT) Anatomical Region Laterality Modality AMB Ultrasound us Not In System Ref Prov IMG US ORDERABLES Final R esult from Last 3 Months Insurance COUNTS INCLUDE 234 BEDS AT [facility] MEDICAID Care Teams I O Psychologist Relationship Specialty Start Date End Date No Pcp, [place] [address] PCP - General Family Medicine 05/20/20
--- OUTSIDE RECORDS SUMMARY | 2024-11-20 10:23 | XMS_ITS | Clinical Summary ---
Author Organization [facility] Address [address] [place] [address] Care Team Providers Care Regulatory Technician Name Role Phone Unavailable Primary Care Provider [...] AM EDT Nurse Visit Reproductive Endocrinology Infertility [address] [place], [place] [phone] Early stage of (HCC) 09/03/2024 Patient Msg Reproductive Endocrinology Infertility [address] [facility] [place] [address] Manisha Powell APRN.CNP Congratulations!!! 08/28/2024 11:10 AM EDT Nurse Visit Reproductive Endocrinology Infertility [address] [place] [address] 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) 08/24/2024 Telephone Reproductive Endocrinology Infertility [address] [place] [address] Shelly Hernandez APRN.CNP Patient Question 08/23/2024 Telephone Reproductive Endocrinology Infertility [address] [place] [address] Shelly Hernandez APRN.PULMONARY DISEASE SPECIALIST Pain 08/20/2024 8:30 AM EDT [facility] Reproductive Endocrinology Infertility [address] [place] [address] Shelly Hernandez APRN.CNP 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) (Primary Dx) from Last 3 Months Family History Medical [...] is lower risk 7 02/28/2024 Data from: https://www.neighborhoodatlas.medicine.[facility].edu/. Last address used for calculation [address] 02/28/2024 Comments Yes Sex and Gender Information [...] assisted reproductive technology in first trimester (HCC) HIV 1/2 COMBO WITH REFLEX TO DIFFERENTIATION [...] yolk sac and pole is present. - O'Donnell rump length measurement is consistent with the [...] Performed By: Nina Farnsworth; RDMS Read By: Phoenix Raymond M.D. Shelly Hernandez ROVING CAN TENDER.[facility] Final Result * OBSTETRIC ULTRASOUND WHI (08/28/2024 11:06 AM EDT) Anatomical Region Laterality Modality Other 08/28/2024 11:0 6 AM EDT Narrative 08/28/2024 3:42 PM EDT Indication Viability Impression - Single, live, intrauterine . - An intrauterine gestational sac with a yolk sac and embryo is present. - O'Donnell rump length measurement is consistent with the [...] Chavez RDMS Read By: Hanna Glynn M.D. us Shelly Hernandez ROVING CAN TENDER.[facility] Final Result * HIV 1/2 COMBO WITH REFLEX TO DIFFERENTIATION (04/02/2024 3:21 PM EST) HIV 12 Combo (Ag/Ab) Nonreactive Nonreactive 04/03/2024 12:27 PM EST [facility] HIV-1/2 AB (Confirmatory) 04/03/2024 12:27 PM EST [facility] Comment:Test not indicated. HIV Interpretation 04/03/2024 12:27 PM EST [facility] Comment: No evidence of HIV-1 or HIV-2 infection. Should recent infection be suspected, repeat testing may be considered 2-3 weeks after this draw. [place] Rev. Code 3701.243(E): This information has been [...] 04/02/2024 3:22 PM EST us Shelly Hernandez APRN.CNP LABORATORY Final Result Performing Organization Address City/[facility] Co de Phone Number [facility] [address] [place] [address], * HEPATITIS C ANTIBODY IA WITH CONFIRMATION (04/02/2024 3:21 PM EST) Hep C Antibody IA Negative Negative 04/03/2024 11:20 AM EST [facility] Comment:The result suggests no evidence of active infection with Hepatitis C virus. Should recent infection be suspected, repeat testing may be considered 4-6 weeks after this draw. Blood BLOOD SPECIMEN / Unknown Venipuncture / Unknown 04/02/2024 3:21 PM EST 04/02/2024 3:22 PM EST us Shelly Hernandez APRN.CNP LABORATORY Final Result [facility] [address] [facility] [address] [place] [address], [place] from Last 3 Months or Most Recently Relevant to Health Maintenance Insurance AN[employer] BCBS MEDICAID [place]
--- OUTSIDE RECORDS SUMMARY | 2024-11-20 10:23 | XMS_ITS | Clinical Summary ---
Author Organization [facility] Address [address] [place] [address] Care Team Providers Care Direct Customer Service Representative Name Role Phone Amanda Ford GOL[employer] FACER Primary Care Provider Allergies Active Allergy Reactions [...] AND BEFORE BED) 60 capsule 3 07/12/19 25 025 Discontinued cyclobenzaprine (Flexeril) 10 MG tablet [...] Encounters Date Type Department Care Team Description 11/20/2024 8:40 [place] [address] Les Martinez DO Well woman exam with routine gynecological exam; Exposure to STD; Second trimester ([facility]); 18 weeks gestation of ([facility]); Need for maternal serum alpha-protein (MSAFP) screening ([facility]); Screening, , for anatomic survey ([facility]); Thyroid disease 11/20/2024 [place] [address] Les Martinez DO 11/05/2024 [place] [address] Les Martinez DO Other iron deficiency anemia 10/22/2024 11:20 AM EDT Routine [facility] [address] [facility] [place] [address] Les Martinez, 13 weeks gestation of ([facility]); Second trimester ([facility]); Thyroid disease ; H/O gastric sleeve; H/O iron deficiency anemia; resulting from in vitro fertilization in first trimester ([facility]) 10/22/2024 Abstract [facility] [address] [place] [address] Kerrie [place] 10/22/2024 Abstract [facility] [address] [place] [address] Kerrie [place] 10/22/2024 Abstract [facility] [address] [place] [address] Kerrie [place] 10/21/2024 Travel 10/18/2024 Telephone [facility] [address] [place] [address] Les Martinez, 10/17/2024 Abstract [facility] [address] [place] [address] Les Martinez, 10/10/2024 Clinisync Result Encounter NOMS External Department Unsolicited Les Martinez, DO 09/26/2024 Telephone [facility] [address] [place] [address] Kerrie [place]cock [place] 09/20/2024 2:30 PM EDT Initial [place] [address] GA: 9w2d 09/20/2024 2:00 PM EDT Ancillary Procedure [facility]ERM[facility] [address] [place] [address] Missed menses 09/20/2024 Abstract [facility] HERNANDEZ [address] [facility] [place] [address] Les Martinez DO 09/12/2024 Telephone [facility] [address] [place] [address] Ximena Padilla LPN LAB READ 08/22/2024 10:00 AM EDT Office Visit [facility] [place] [facility] [address] [place] [address] Darleen Sinclair MD Abnormal thyroid function test (Primary Dx); H/O gastric bypass; Nontoxic goiter ; Vitamin D deficiency 08/22/2024 Bamboo flowsheet [facility] [place] [facility] [address] [place] [address] Darleen Sinclair MD from Last 3 Months [...] Pressure 114/64 11/20/2024 9:10 AM EDT Pulse 67 08/22/2024 10:04 AM EDT Temperature - - Respiratory Rate 16 08/22/2024 10:04 AM EDT Oxygen Saturation 99% 08/22/2024 10:04 AM EDT Inhaled Oxygen Concentration - - Weight 116 kg (256 lb) 11/20/2024 9:10 AM EDT Height 180.3 cm (5' 11 ) 08/22/2024 10:04 AM EDT Body Mass Index 35.7 08/22/2024 10:04 AM EDT Plan of Treatment Upcoming Encounters Date Type Department Care Team (Late st Contact Info) Description 12/04/2024 8:30 AM EDT Ancillary Procedure [facility] HERNANDEZ [address] [facility] [place] [phone] 12/19/2024 10:00 AM EDT Routine [facility]OM[facility] HERNANDEZ [address] [facility] [place] [phone] Jojo Ames PA [address] [facility] [address] [place], [place] [phone] 02/20/2025 1:00 PM EST Office Visit GUDELIA HERNANDEZ [address] [facility] [place] [phone] Les Martinez DO [address] [facility] [address] [place], [place] [phone] 08/21/2025 9:30 AM EDT Office Visit [facility] [address] [place] [phone] Darleen Sinclair MD [address] [place] [address] Health Maintenance Due Date Last Done Comments Influenza Vaccine (#1) 2024 Goals Goal Patient Goal Type Associated Problems Recent Progress Patient-Stated? Author Reminders Care Plan OB Reminders No Open Scheduling, Background Procedures Procedure Name Priority Date/Time Associated Diagnosis Comments POCT URINALYSIS DIPSTICK Routine 11/20/2024 9:12 AM EDT Second trimester ([facility]) POCT URINALYSIS DIPSTICK Routine 10/22/2024 11:41 AM EDT 13 weeks gestation of ([facility]) Second trimester ([facility]) BOX TEST Routine 10/10/2024 11:18 AM EDT POCT URINALYSIS DIPSTICK Routine 09/20/2024 3:08 PM EDT Missed menses POCT , URINE Routine 09/20/2024 3:08 PM EDT Missed menses US OB TRANSVAGINAL Routine 09/20/2024 2: 24 PM [...] test from Last 3 Months Results * (ABNORMAL) POCT urinalysis dipstick manually resulted (11/20/2024 9:12 AM EDT) Only the most recent of3 resultswithin the time period is included. Color, [...] - Positive Urine 11/20/2024 9:12 AM EDT us Les Juan DO POINT OF CARE TEST ENTER/EDIT OR DERABLES Final Result * BOX TEST (10/10/2024 11:18 AM EDT) BOX TEST [facility] OUT [facility] 10-10-24 [facility] 10/10/2024 11:1 8 AM EDT 10/10/2024 11:22 AM EDT Narrative [facility] - 10/10/2024 11:23 AM EDT [facility] DO LAB BLOOD ORDERABLES Final Resul t [facility] * (ABNORMAL) POCT , urine manually resulted [...] II, MD, PHD at 21-Sep-2024 08:26:46 AM [facility] Procedure Note Edel Garcia MD - [...] signed by EDEL GARCIA II, MD, PHD [id number] 08:26:46 AM [facility] Les Martinez DO IMG OB US PROCEDURES Final Resul t * Vitamin D 25 hydroxy (08/27/2024 8:52 AM EDT) Blood Venous blood specimen / Unknown Darleen Sinclair MD LAB BLOOD ORDERABLES Final Re sult Performing Organization Address [facility] de Phone Number EXTERNAL LAB * T3, free (08/27/2024 8:52 AM EDT) Blood Venous blood specimen / Unknown Darleen Sinclair MD LAB BLOOD ORDERABLES Final Re sult Performing Organization Address [facility] de Phone Number EXTERNAL LAB * TSH (08/27/2024 8:52 AM EDT) Blood Venous blood specimen / Unknown Darleen Sinclair MD LAB BLOOD ORDERABLES Final Re sult Performing Organization Address [facility] de Phone Number EXTERNAL LAB * T4, free (08/27/2024 8:52 AM EDT) Blood Venous blood specimen / Unknown Darleen Sinclair MD LAB BLOOD ORDERABLES Final Re sult EXTERNAL LAB * Thiamine (aka Vitamin B1) (08/27/2024 8:52 AM EDT) Blood Venous blood specimen / Unknown us Darleen Sinclair MD LAB BLOOD ORDERABLES Final Re sult Performing Organization Address City/[facility]/ZIP Co de Phone Number EXTERNAL LAB * Vitamin B12 (08/27/2024 8:52 AM EDT) Blood Venous blood specimen / Unknown us Darleen Sinclair MD LAB BLOOD ORDERABLES Final Re sult Performing Organization Address [facility] Co de Phone Number EXTERNAL LAB from Last 3 Months Additional Health Concerns Active Problems Noted Date Diagnosed Date OB Reminders 10/22/2024 Insurance [employer]BS [place]ICAID [place] Care Teams Direct Customer Service Representative Relationship Specialty Start Date End Date Amanda Ford NP [address] [place] [address] [place] [address] PCP - General Family Medicine 01/17/23
--- OUTSIDE RECORDS SUMMARY | 2024-11-20 10:23 | XMS_ITS | Encounter Summary ---
Author Organization [facility] Address [address] [facility], [address] [place] [address] Care Team Providers Care Patient Service Representative Name Role Phone Robin Marquez MD Primary Care Provider [phone] Reason for Visit * Reason Comments Medication Refill Encounter Details Date Type Department Care Team (Late st Contact Info) Description 03/08/2019 Refill [facility] [address] [place] [address] [place] [phone] Christina Arreguin, LICENSED TAX CONSULTANT - IT SECURITY ENGINEER Medication Refill Social History Tobacco Use Types [...] documented as of this encounter Care Teams Patient Service Representative Relationship Specialty Start Date End Date Robin Marquez MD [address] [place] [address] PCP - General Family Medicine 10/10/18 documented as of this encounter
--- OUTSIDE RECORDS SUMMARY | 2024-11-20 10:23 | XMS_ITS | Encounter Summary ---
Author Organization [facility] Address [address] [place] [address] Care Team Providers Care Radiology Manager Name Role Phone MerylAmanda cervantes Nikole IMAGING TECHNICIAN Primary Care Provider Encounter Details Date Type Department Care Team (Late st Contact Info) Description 03/02/2024 Orders Only GUDELIA HERNANDEZ [address] [place] [address] Esperanza AsifTurner, [place] [address] [place] [address] Social History Tobacco Use Types Packs/Day Years [...] AM EDT Ancillary Procedure NOMMarixa HERNANDEZ [address] [place] [address] 12/19/2024 10:00 AM EDT Routine NOMMarixa HERNANDEZ [address] [place] [address] Jojo Ames PA [address] [facility] [address] [place], [place] [address] 02/20/2025 1:00 PM EST Office Visit NOMMarixa HERNANDEZ [address] [facility] [place] [address] Les Martinez DO [address] [facility] [address] [place], [place] [address] 08/21/2025 9:30 AM EDT Office Visit [facility] [place] [facility] [address] [place] [phone] Darleen Sinclair MD [address] [place] [address] documented as of this encounter Procedures Procedure Name Priority Date/Time Associated Diagnosis Comments PAP SMEAR Routine 02/20/2024 12:00 AM EST documented in this encounter Results * Pap Smear (02/20/2024 12:00 AM EST) Swab Cervical swab / Unknown us Les Martinez DO LAB CYTOLOGY ORDERABLES Final Re sult EXTERNAL LAB documented in this encounter Visit Diagnoses Not on filedocumented in this encounter Care Teams Radiology Manager Relationship Specialty Start Date End Date Amanda Ford NP [address] [place] [phone] PCP - General Family Medicine 01/17/23 documented as of this encounter
--- OUTSIDE RECORDS SUMMARY | 2024-11-20 10:23 | XMS_ITS | Encounter Summary ---
Author Organization [facility] Address [address] [place] [address] Care Team Providers Care Cook'S Assistant Name Role Phone Mariam Fordfer Nikole SENSITIZED PAPER TESTER Primary Care Provider Reason for Visit * Reason Comments Med Refill Encounter Details Date Type Department Care Team (Late st Contact Info) Description 11/05/2024 Refill GUDELIA HERNANDEZ [address] [place] [phone] Les Martienz DO [address] [place], [facility] Other iron deficiency anemia Social History Tobacco [...] Description 12/04/2024 8:30 AM EDT Ancillary Procedure [facility] Ricco HERNANDEZ [address] [facility] [place] [address] 12/19/2024 10:00 AM EDT Routine [facility] Ricco LLANESN [address] [facility] [place] [address] Jojo Ames PA [address] [facility] [place] [address] 02/20/2025 1:00 PM EST Office Visit NOMMarixa HERNANDEZ [address] [facility] [place] [address] Les Martinez DO [address] [facility] [place] [address] 08/21/2025 9:30 AM EDT Office Visit [facility] [address] [place] [address] Darleen Sinclair MD [address] [place] [address] documented as of this encounter Goals Goal Patient Goal Type Associated Problems Recent Progress Patient-Stated? Author Reminders Care Plan OB Reminders No Open Scheduling, Background documented as of this encounter Visit Diagnoses Diagnosis Other iron deficiency anemia documented in this encounter Additional Health Concerns Active Problems Noted Date Diagnosed Date OB Reminders 10/22/2024 documented as of this encounter Care Teams Cook'S Assistant Relationship Specialty Start Date End Date Amanda Ford NP [address] [facility] [place] [place] [address] PCP - General Family Medicine 01/17/23 documented as of this encounter
--- OUTSIDE RECORDS SUMMARY | 2024-11-20 10:23 | XMS_ITS | Encounter Summary ---
Author Organization [facility] Address [address] [facility], [address] [place] [address] Care Team Providers Care Drafter Geological Name Role Phone Robin Marquez MD Primary Care Provider [phone] Reason for Visit * Reason Comments Medication Refill Encounter Details Date Type Department Care Team (Late st Contact Info) Description 03/22/2019 Refill [facility] [address] [place] [address] [place] [address] Christina Arreguin, DIRECTOR OF FEDERAL SALES - DIRECTOR OF COMMUNITY LIFE Medication Refill Social History Tobacco Use Types [...] documented as of this encounter Care Teams Drafter Geological Relationship Specialty Start Date End Date Robin Marquez MD [address] [place] [address] PCP - General Family Medicine 10/10/18 documented as of this encounter
--- OUTSIDE RECORDS SUMMARY | 2024-11-20 10:23 | XMS_ITS | Encounter Summary ---
Author Organization [facility] Address [address] [place] [address] Care Team Providers Care Fuel Quality Tech Name Role Phone Logan Amanda Nikole GYROSCOPIC INSTRUMENT MECHANIC Primary Care Provider Encounter Details Date Type Department Care Team (Late st Contact Info) Description 10/22/2024 Abstract [facility] Ricco HERNANDEZ [address] [place] [address] Sadiq [place], [place] Social History Tobacco Use Types Packs/Day Years [...] EDT Ancillary Procedure [facility] Ricco HERNANDEZ [address] [place] [address] 12/19/2024 10:00 AM EDT Routine [place] [address] Jojo Ames PA [address] [facility] [place] [address] 02/20/2025 1:00 PM EST Office Visit [facility] Ric[facility]BGYN [address] [facility] [place] [address] Les Martinez DO [address] [facility] [place] [address] 08/21/2025 9:30 AM EDT Office Visit [facility] [place] [facility] [address] [place] [address] Darleen Sinclair MD [address] [place] [address] documented as of this encounter Goals Goal Patient Goal Type Associated Problems Recent Progress Patient-Stated? Author Reminders Care Plan OB Reminders No Open Scheduling, Background documented as of this encounter Visit Diagnoses Not on filedocumented in this encounter Additional Health Concerns Active Problems Noted Date Diagnosed Date OB Reminders 10/22/2024 documented as of this encounter Care Teams Fuel Quality Tech Relationship Specialty Start Date End Date Amanda Ford NP [address] [facility] [place] [address] PCP - General Family Medicine 01/17/23 documented as of this encounter
--- OUTSIDE RECORDS SUMMARY | 2024-11-20 10:23 | XMS_ITS | Patient Health Record ---
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) Active confirmed Problem Anxiety state (645253178) Anxiety state, unspecified (F41.1) Active confirmed Problem Long-term current use of drug therapy (351417426) High risk medications (not anticoagulants) long-term use (Z79.899) Active confirmed Problem Bipolar affective disorder, currently manic, mild (218587117) Bipolar disorder, current episode manic without psychotic features, mild (F31.11) Active confirmed Vital Signs Heart Rate 84 /min 10/24/2024 Oximetry 98 % 10/24/2024 Blood pressure diastolic 68 mm Hg 10/24/2024 Height 71 in 10/24/2024 Blood pressure systolic 124 mm Hg 10/24/2024 Weight 218.2 lbs 10/24/2024 BMI 30.43 kg/m2 10/24/2024 Encounters Encounter Location Date Provider Diagnosis [facility] [address] [place] [address] 01/25/2024 [place] [address] [place] [address] 02/24/2024 [address] [place] [place] [address] 05/10/2024 [facility] Bipolar disorder, current episode manic without psychotic features, mild F31.11 and Anxiety state, unspecified F41.1 [place] [address] [place] [address] 05/24/2024 [facility] Bipolar disorder, current episode manic without psychotic features, mild F31.11 [facility] [address] [facility] [place] [address] 01/25/2024 Julieta Jefferson Bipolar disorder, current episode manic without psychotic features, mild F31.11 [facility] [address] [facility] [address] 04/25/2024 Julieta Jefferson Bipolar disorder, current episode manic without psychotic features, mild F31.11 and Anxiety state, unspecified F41.1 [facility] [address] [facility] [place] [place] [address] 08/24/2024 Jennifer Hahn Bipolar disorder, current episode manic without psychotic features, mild F31.11 and Anxiety state, unspecified F41.1 [facility] [address] [place] [facility] [place] [place] [address] 09/25/2024 Jennifer Hahn Bipolar disorder, current episode manic without psychotic features, mild F31.11 [facility] [address] [facility] [place] [address] 10/24/2024 Jennifer Hahn Bipolar disorder, current episode manic without psychotic features, mild F31.11 Assessments Encounter Date Diagnosis (ICD Code) Assessment Notes Treatment Notes Treatment Clinical Notes Section Notes 08/24/2024 Bipolar disorder, current episode manic without [...] consented to the start/continuation of the treatment. 10/24/2024 Bipolar disorder, current episode manic without [...] consented to the start/continuation of the treatment. 05/10/2024 Bipolar disorder, current episode manic without psychotic features, mild (ICD-10 - F31.11) 05/24/2024 Bipolar disorder, current episode manic without psychotic features, mild (ICD-10 - F31.11) 08/24/2024 Anxiety state, unspecified (ICD-10 - F41.1) 01/25/2024 Bipolar disorder, current episode manic without [...] increasing protein as appropriate. Discussed referral to mill stenciler if problem persists. . . Continue current [...] ideation, intent or plan in session. . 04/25/2024 Anxiety state, unspecified (ICD-10 - F41.1) 04/25/2024 Bipolar disorder, current episode manic without psychotic features, mild (ICD-10 - F31.11) cont current treatment transfer to [facility] . . Informed consent obtained: YES, we discussed the diagnosis/diagnoses , the treatment options, treatment(s) recommended vs. no treatment. We discussed risks and benefits of treatment options, treatment recommendations vs. no treatment. . . Discussed lifestyle/diet changes to help improve BMI. Recommend increasing activity, reducing portion sizes, limiting carbohydrates, increasing protein as appropriate. Discussed referral to mill stenciler if problem persists. . . Second generation [...] Insured Coverage Start Date Coverage End Date [facility] [address] [place] [address] [id number] DEL CID GUZMAN Self - patient is the insured 3 [employer] [facility] [address] [place] [address] [id number] DEL CID GUZMAN Self - patient is the insured 3 [facility] EZEKIEL ROSAS [address] [place] [address] [id number] MARIA EUGENIA GUZMAN Self - patient is the insured 1 2 [facility] [employer] -termed 22 [address] [place] [address] [id number] 1 MARIA EUGENIA GUZMAN Self - patient is the insured 1 3 [employer] MEDICAID [employer] after [employer] -termed [address] [place] [address] [id number] MARIA EUGENIA GUZMAN Self - patient is the insured 1 3 Medical (General) History Medical History History ICD Code obesity bipolar hypothyroid Surgical History Surgery Date(Month/Year) cholecystectomy gastric SLEEVE 04/2020
--- OUTSIDE RECORDS SUMMARY | 2024-11-20 10:23 | XMS_ITS | Encounter Summary ---
Author Organization [facility] Address [address] [place] [address] Care Team Providers Care Nurses Educator Name Role Phone Logan Amanda Nikole ETHYLBENZENE CRACKING SUPERVISOR Primary Care Provider Encounter Details Date Type Department Care Team (Late st Contact Info) Description 01/19/2023 Clinisync Result Encounter NOMS External Department Unsolicited Basim Martinez, DO [address] [place] [address] Social History Tobacco Use Types Packs/Day Years [...] AM EDT Ancillary Procedure [facility] Ricco HERNANDEZ [facility] [place] [address] 12/19/2024 10:00 AM EDT Routine [facility]OMS Ricco HERNANDEZ [facility] [place] [address] Jojo Ames PA [address] [facility] [place] [address] 02/20/2025 1:00 PM EST Office Visit GUDELIA HERNANDEZ [address] [facility] [place] [place] [address] Basim Martinez DO [address] [facility] [address] [place], [place] [address] 08/21/2025 9:30 AM EDT Office Visit [facility] [address] [place] [address] Darleen Sinclair MD [address], [address] [place] [address] documented as of this encounter Procedures Procedure [...] PM EDT Narrative 01/19/2023 3:46 [place] [address] Ultrasound Report Signed Patient: GUZMAN DEL CID MR#: [id number] : 1995 Acct:[id number] Age/Sex: 27 / F ADM Date: 01/19/23 Loc: US Attending Dr: Basim Martinez D.O. Ordering Physician: Basim Martinez D.O. Date of Service: 01/19/23 Procedure(s): US pelvis transvaginal Accession Number(s): [id number] cc: Basim Martinez D.O.; AMANDA FORD [place] [address] Patient Name: GUZMAN DEL CID MRN: [id number] date: 1995 Sex: F Assigned Patient Location: US Current Patient Location: US Accession/Order Number: [id number] Exam Date: 01/19/2023 14:15 Report Date: 01/19/2023 [...] Signed By: 01/19/23 1549 DD/ 1546 TD/TT: Filter Plant Supervisor: Procedure Note Radiology, Radiologist, MD - 01/19/2023 [place] [address] Ultrasound Report Signed Patient: GUZMAN DEL CIDMR#: [id number] : 1995Acct:[id number] Age/Sex: 27 / FADM Date: 01/19/23 Loc: US Attending Dr: Basim Martinez D.O. Ordering Physician: Basim Martinez D.O. Date of Service: 01/19/23 Procedure(s): US pelvis transvaginal Accession Number(s): [id number] cc: Basim Martinez D.O.; AMANDA FORD [place] [address] Patient Name: GUZMAN DEL CID MRN: [id number] date: 1995 Sex: F Assigned Patient Location: US Current Patient Location: US Accession/Order Number: [id number] Exam Date: 01/19/2023 14:15 Report Date: 01/19/2023 [...] M.D. Signed By:01/19/23 1549 DD/ 1546 TD/TT: Filter Plant Supervisor: [facility] DO [facility] Final Result * ALL DEHYDROEPIANDROSTERONE (01/19/2023 2:10 PM EDT) DHEA, SERUM 141 31 - 701 ng/dL [facility] Comment: This test was developed and its performance characteristics determined by [facility]. It has not been cleared or approved by the Food and Drug Administration. Performed at: [address] [id number] Leadership Development Consultant: Jon Horton MD, Phone: [phone] 01/19/2023 2:10 PM EDT 01/19/2023 2:12 PM EDT Narrative CLINISYNC - 01/25/2023 6:07 PM EDT [facility] Final [facility] * ALL ANTI-MULLERIAN HORMONE (01/19/2023 2:10 PM EDT) Pathologist [facility] ANTI-MULLERIAN HORMONE (AMH) 0.895 . ng/mL [facility] Comment: For assays employing antibodies, the possibility exists for interference by heterophile antibodies in the samples.1 1.Yessenia Mayfield. Interferences in Immunoassays - still a threat. Clin. Chem. 2000; 46: 2424-8762. This test was developed and its performance characteristics determined by [facility]. It has not been cleared or approved by the Food and Drug Administration. Reference Range: Females 26 - 30y: 1.03 - 11.10 Median 4.20 AMH concentrations of >= 1.06 ng/mL is correlated with a better response to ovarian stimulation, produced more retrievable oocytes and higher odds of live according to Gary et al. Fertility and Sterility. 2010: 94:1559-8748. The current AMH test method correlates with [...] exclude an AMH-secreting ovarian tumor. Performed at: [facility] [address] [place] [id number] Leadership Development Consultant: James Pereyra MD, Phone: [phone] 01/19/2023 2:10 PM EDT 01/19/2023 2:12 PM EDT Narrative CLINISYNC - 01/23/2023 8:07 PM EDT Basim Juan DO [facility] Final Result Performing Organization Address [facility]/ZIP Co de Phone Number [facility] * (ABNORMAL) [facility] PROLACTIN (01/19/2023 2:10 PM EDT) PROLACTIN 4.4(A) 4.8 - 23.3 ng/mL [facility] Comment: Performed at: - [facility] [id number] Leadership Development Consultant: Isaac Dietz PhD, Phone: [phone] 01/19/2023 2:10 PM EDT 01/19/2023 2:12 PM EDT Narrative CLINISYNC - 01/20/2023 4:07 AM EDT Basim Juan DO [facility] Final Result [facility] * ALL FOLLICLE STIMULATING HORMONE (01/19/2023 2:10 PM EDT) FSH 8.4 . mIU/mL [facility] Comment: Adult Female: Follicular phase 3.5 - 12.5 Ovulation phase 4.7 - 21.5 Luteal phase 1.7 - 7.7 Postmenopausal 25.8 - 134.8 01/19/2023 2:10 PM EDT 01/19/2023 2:12 PM EDT Narrative CLINISYNC - 01/20/2023 4:07 AM EDT Basim Juan DO CLINISY[facility] Final Result Performing Organization Address City/[facility] Co de Phone Number CLINISYNC [facility] * [...] DO CLINISYNC Final Result Performing Organization Address [facility] Co de Phone Number [facility] * ALL DHEA SULFATE (01/19/2023 2:10 PM EDT) DHEA-SULFATE 91.4 84.8 - 378.0 ug/dL [facility] 01/19/2023 2:10 PM EDT 01/19/2023 2:12 PM EDT Narrative CLINISYNC - 01/20/2023 4:07 AM EDT Basim Juan DO CLINISYNC Final Result Performing Organization Address [facility] Co de Phone Number CLINISYNC TB documented in this encounter Visit Diagnoses Not on filedocumented in this encounter Care Teams Nurses Educator Relationship Specialty Start Date End Date Amanda Frod NP [facility] [place] [address] PCP - General Family Medicine 01/17/23 documented as of this encounter
--- OUTSIDE RECORDS SUMMARY | 2024-11-20 10:23 | XMS_ITS | Encounter Summary ---
Author Organization [facility] Address [address] [place] [address] Phone Care Team Providers Care Career Counselor Name Role Phone Unavailable Primary Care Provider Unavailabl e Encounter Details Date Type Department Care Team (Late st Contact Info) Description 05/02/2024 Scanned Document Yelena Castanon Pavilimanisha [address] [address] [place] [address] [address] Department of LABEL C[place]ER-[place] [address] Social History Tobacco Use Types Packs/Day Years [...]
--- OUTSIDE RECORDS SUMMARY | 2024-11-20 10:23 | XMS_ITS | Encounter Summary ---
Author Organization [facility] Address [address] [place] [address] Care Team Providers Care Hydroelectric Powerplant Supervisor Name Role Phone Unavailable Primary Care Provider Unavailabl e Source Comments In the event this information is protected by the Federal Confidentiality of Alcohol and Drug AbusePatient Records regulations: The Federal rules restrict any use of the information to criminally investigate or prosecute any alcohol or drug abuse patient.[facility] Encounter Details Date Type Department Care Team (Late st Contact Info) Description 05/15/2024 Get Medical Advice Reproductive Endocrinology Infertility [address] [place] [address] Shelly Hernandez APRN.BUSINESS PLANNING MANAGER [address] [place] [address] [employer] order Social History Tobacco Use Types Packs/Day Years Used Date Smoking Tobacco: Never Assessed Area Deprivation Index Answer Date Claudio rded National Score (1-100), lower number is lower ri sk 82 02/28/2024 State Score (1-10), lower number is lower risk 7 02/28/2024 Data from: https://www.neighborhoodatlas.medicine.[facility].edu/. Last address used for calculation [address] [...]
--- OUTSIDE RECORDS SUMMARY | 2024-11-20 10:23 | XMS_ITS | Clinical Summary ---
Author Organization [facility] Address [address] [facility], [address] [place] [address] Care Team Providers Care Button Sewing Machine Operator Name Role Phone Robin Marquez MD Primary Care Provider [phone] Allergies No known active allergies Medications levothyroxine [...] 4:42 PM 05/08/2020 3:13 PM Care Teams Button Sewing Machine Operator Relationship Specialty Start Date End Date Robin Marquez MD [address] [id number] PCP - General Family Medicine 10/10/18
--- OUTSIDE RECORDS SUMMARY | 2024-11-20 10:23 | XMS_ITS | Encounter Summary ---
Author Organization [facility] Address [address] [place] [address] Care Team Providers Care Groover And Striper Operator Name Role Phone Jovaninikkie Amanda Nikole EAP CLINICIAN Primary Care Provider Encounter Details Date Type Department Care Team (Late Contact Info) Description 09/20/2024 Abstract NOMMarixa HERNANDEZ [address] [place] [address] Les Martinez DO [address] [facility] [address] [place], [place] [address] Social History Tobacco Use Types Packs/Day Years [...] Department Care Team (Late Contact Info) Description 12/04/2024 8:30 AM EDT Ancillary Procedure NOMMarixa HERNANDEZ [address] [place] [address] 12/19/2024 10:00 AM EDT Routine [facility] Ricco HERNANDEZ [address] [place] [address] Jojo Ames PA [address] [facility] [place] [address] 02/20/2025 1:00 PM EST Office Visit [facility] Ricco HERNANDEZ [address] [place] [address] Les Martinez DO [address] [facility] [address] [place], [place] [address] 08/21/2025 9:30 AM EDT Office Visit [facility] [place] [facility] [address] [place] [address] Darleen Sinclair MD [address] [place] [address] documented as of this encounter Visit Diagnoses Not on filedocumented in this encounter Care Teams Groover And Striper Operator Relationship Specialty Start Date End Date Amanda Ford NP [address] [facility] [place] [address] PCP - General Family Medicine 01/17/23 documented as of this encounter
--- OUTSIDE RECORDS SUMMARY | 2024-11-20 10:23 | XMS_ITS | Encounter Summary ---
Author Organization [facility] Address [address] [place] [address] Care Team Providers Care Employer Relations Representative Name Role Phone Logan Amanda Nikole PLAN CHECKER Primary Care Provider Encounter Details Date Type Department Care Team (Late st Contact Info) Description 10/22/2024 Abstract [facility] HERNANDEZ [address] [place] [address] Sadiq Ker[place], [place] Social History Tobacco [...] Procedure [facility] HERNANDEZ [address] [place] [address] 12/19/2024 10:00 AM EDT Routine [place] [address] Jojo Ames PA [address] [facility] [place] [address] 02/20/2025 1:00 PM EST Office Visit [facility] [address] [facility] [place] [phone] Les Martinez DO [address] [facility] [place] [address] 08/21/2025 9:30 AM EDT Office Visit [facility] [place] [facility] [address] [place] [address] Darleen Sinclair MD [address] [place] [address] documented as of this encounter Goals Goal Patient Goal Type Associated Problems Recent Progress Patient-Stated? Author Reminders Care Plan OB Reminders No Open Scheduling, Background documented as of this encounter Visit Diagnoses Not on filedocumented in this encounter Additional Health Concerns Active Problems Noted Date Diagnosed Date OB Reminders 10/22/2024 documented as of this encounter Care Teams Employer Relations Representative Relationship Specialty Start Date End Date Amanda Ford NP [address] [place] [facility] [address] PCP - General Family Medicine 01/17/23 documented as of this encounter
--- OUTSIDE RECORDS SUMMARY | 2024-11-20 10:23 | XMS_ITS | Clinical Summary ---
Author Organization [facility] Address [address] [place] [address] Phone Care Team Providers Care Devops Name Role Phone Unavailable Primary Care Provider [...] patient's age to complete this topic Insurance [facility] MEDICAID
--- OUTSIDE RECORDS SUMMARY | 2024-11-20 10:23 | XMS_ITS | Encounter Summary ---
Author Organization [facility] Address [address] [place] [address] Care Team Providers Care Manager Heart Failure Name Role Phone Jovaninikkie Amanda Nikole LEAVE COORDINATOR Primary Care Provider Encounter Details Date Type Department Care Team (Late Contact Info) Description 05/04/2023 Abstract [facility] HERNANDEZ [address] [place] [phone] Lilibeth Green LPN [address] [place] [address] Social History Tobacco Use Types Packs/Day Years [...] AM EDT Ancillary Procedure [facility] HERNANDEZ [address] [place] [address] 12/19/2024 10:00 AM EDT Routine [facility] HERNANDEZ [address] [facility] [place] [phone] Jojo Ames PA [address] [facility] [place] [address] 02/20/2025 1:00 PM EST Office Visit [facility] HERNANDEZ [address] [facility] [place] [phone] Les Martinez DO [address] [facility] [place] [address] 08/21/2025 9:30 AM EDT Office Visit [facility] [address] [place] [address] Darleen Sinclair MD [address] [place] [address] documented as of this encounter Visit Diagnoses Not on filedocumented in this encounter Care Teams Manager Heart Failure Relationship Specialty Start Date End Date Amanda Ford NP [address] [place] [address] [place] [address] PCP - General Family Medicine 01/17/23 documented as of this encounter
--- OUTSIDE RECORDS SUMMARY | 2024-11-20 10:23 | XMS_ITS | Encounter Summary ---
Author Organization [facility] Address [address] [place] [address] Care Team Providers Care Digital Imager Name Role Phone Logan Amanda Nikole NEWSPAPER MANAGING EDITOR Primary Care Provider Encounter Details Date Type Department Care Team (Late st Contact Info) Description 10/22/2024 Abstract [facility] HERNANDEZ [address] [place] [address] Sadiq [place], [place] Social History Tobacco Use Types Packs/Day Years [...] Procedure [facility] HERNANDEZ [address] [place] [address] 12/19/2024 10:00 AM EDT Routine [place] [address] Jojo Ames PA [address] [facility] [place] [address] 02/20/2025 1:00 PM EST Office Visit [facility] [address] [place] [phone] Les Martinez DO [address] [facility] [place] [address] 08/21/2025 9:30 AM EDT Office Visit [facility] [place] [facility] [address] [place] [address] Darleen Sinclair MD [address] [place] [address] documented as of this encounter Goals Goal Patient Goal Type Associated Problems Recent Progress Patient-Stated? Author Reminders Care Plan OB Reminders No Open Scheduling, Background documented as of this encounter Visit Diagnoses Not on filedocumented in this encounter Additional Health Concerns Active Problems Noted Date Diagnosed Date OB Reminders 10/22/2024 documented as of this encounter Care Teams Digital Imager Relationship Specialty Start Date End Date Amanda Ford NP [address] [facility] [place] [address] PCP - General Family Medicine 01/17/23 documented as of this encounter
--- OUTSIDE RECORDS SUMMARY | 2024-11-20 10:23 | XMS_ITS | Encounter Summary ---
Author Organization [facility] Address [address] [place] [address] Care Team Providers Care Certified Dialysis Technician Name Role Phone Logan Amanda Nikole BAILER TENDERS SUPERVISOR Primary Care Provider Encounter Details Date Type Department Care Team (Late st Contact Info) Description 11/20/2024 Bamboo flowsheet GUDELIA HERNANDEZ [address] [place] [phone] Les Martinez DO [address] [place], [facility] Social History Tobacco Use Types Packs/Day Years [...] AM EDT Ancillary Procedure GUDELIA HERNANDEZ [address] [place] [phone] 12/19/2024 10:00 AM EDT Routine [facility] LLANESN [address] [facility] [place] [phone] Jojo Ames PA [address] [facility] [place] [address] 02/20/2025 1:00 PM EST Office Visit [facility] HERNANDEZ [address] [facility] [place] [address] Les Martinez DO [address] [facility] [address] [place], [place] [phone] 08/21/2025 9:30 AM EDT Office Visit [facility] [address] [place] [address] Darleen Sinclair MD [address] [place] [address] documented as of this encounter Goals Goal Patient Goal Type Associated Problems Recent Progress Patient-Stated? Author Reminders Care Plan OB Reminders No Open Scheduling, Background documented as of this encounter Visit Diagnoses Not on filedocumented in this encounter Additional Health Concerns Active Problems Noted Date Diagnosed Date OB Reminders 10/22/2024 documented as of this encounter Care Teams Certified Dialysis Technician Relationship Specialty Start Date End Date Amanda Ford NP [address] [place] [address] [place] [address] PCP - General Family Medicine 01/17/23 documented as of this encounter
--- OUTSIDE RECORDS SUMMARY | 2024-11-20 10:23 | XMS_ITS | Encounter Summary ---
Author Organization [facility] Address [address] [place] [address] Care Team Providers Care Instrument Man Name Role Phone Jovaninikkie Amanda Nikole LPN OR MEDICAL ASSISTANT Primary Care Provider Encounter Details Date Type Department Care Team (Late Contact Info) Description 10/17/2024 Abstract [facility] HERNANDEZ [address] [place] [address] Les Martinez DO [address] [facility] [address] [place], [place] [address] Social History Tobacco Use Types Packs/Day Years [...] AM EDT Ancillary Procedure [facility]OM[facility]a HERNANDEZ [address] [place] [address] 12/19/2024 10:00 AM EDT Routine [facility] HERNANDEZ [address] [facility] [place] [address] Jojo Ames PA [address] [facility] [place] [address] 02/20/2025 1:00 PM EST Office Visit [facility] HERNANDEZ [address] [facility] [place] [address] Les Martinez DO [address] [facility] [address] [place], [place] [phone] 08/21/2025 9:30 AM EDT Office Visit [facility] [place] [facility] [address] [place] [address] Darleen Sinclair MD [address] [place] [address] documented as of this encounter Visit Diagnoses Not on filedocumented in this encounter Care Teams Instrument Man Relationship Specialty Start Date End Date Amanda Ford NP [address] [facility] [place] [address] PCP - General Family Medicine 01/17/23 documented as of this encounter
[2024-11-20 11:18] LABS: Thyroid Stimulating Hormone 1.702 uIU/mL (0.358-3.740)
== END 2024-11-20 10:20 | disposition home or self-care (01) ==
LOC: LAB 10:21
PROVIDERS: PCP Nurse Practitioner Family; Visit Provider Obstetrics & Gynecology
DX: Z34.92 Encounter for supervision of normal pregnancy, unspecified, second trimester (principal); Z36.1 Encounter for antenatal screening for raised alphafetoprotein level; Z3A.18 18 weeks gestation of pregnancy; E07.9 Disorder of thyroid, unspecified
CPT/HCPCS: 36415; 82105; 84443

== ENCOUNTER 2024-11-30 11:50 | Emergency (ER) | payer MEDICAID, SELFPAY ==
--- OUTSIDE RECORDS SUMMARY | 2023-08-31 06:45 | XMS_ITS | Continuity of Care Document ---
Author Organization [facility] Address [address] [place] [address] Phone Care Team Providers Care Real Estate Coordinator Name Role Phone Jo Melvin DDS Unavailable [...] Visit Dental Bitewig-single Film Intraoral-periapical 1st Film Jtrwluuwv-qdsxibtvua-azhq Additional Jul Oral Hygiene Instruction Limited Oral Eval Oral/Facial Photographic Images 024 Prophylaxis Adult Nutrit Couns For Control Of [place] Dis Jul Oral Hygiene Instruction Oral Hygiene [...] Diagnoses Date Provider Providers Copied on Encounter [facility], [address] [place] [address], [id number], tel:[phone] Dental Clinic de (chief complaint) Encounter for screening for dental disorders [facility]. . tel:[phone] [facility], [address] [place] [address], [id number], [place] tel:[phone] Dental Clinic dl (chief complaint) Encounter for screening for dental disorders [facility]. [address] [place] [address], [id number], [place]. tel:[phone] [facility], [address] [place] [address], [id number], tel:[phone] Dental Clinic [place] (chief complaint) Body mass index [BMI] 28.0-28.9, adultEncounter for screening for dental disorders Aaron S Butch. [address] [place] [address], [id number], [place]. tel:[phone] [facility], [address] [place] [address], [id number], tel:[phone] Dental Clinic fill (chief complaint) Encounter for screening for dental disorders Ngozi S Jo. . tel:[phone] [facility], [address] [place] [address], [id number], [place] tel:[phone] Dental Clinic fill (chief complaint) Encounter for screening for dental disorders Ngozi Osorio. . tel: [phone] [facility], [address] [place] [address], [id number], [place] tel:[phone] Dental Clinic fill (chief complaint) Encounter for screening for dental disorders Ngozi Osorio. . tel: [phone] [facility], [address] [place] [address], [id number], [place] tel:[phone] Dental Clinic DN (chief complaint) Encounter for screening for dental disorders Ngozi Osorio. . tel: [phone] Family History Family Member Type Diagnosis Age At Onset No Information Payers Payer name Insurance type Covered libertarian ID Authoriza tion(s) No Information Social History [...]
--- OUTSIDE RECORDS SUMMARY | 2024-11-20 08:40 | XMS_ITS | Encounter Summary ---
Author Organization [facility] Address [address] [place] [address] Care Team Providers Care Research Home Economist Name Role Phone Amanda Ford BOARDMARKER Primary Care Provider Reason for Visit * Reason Comments Routine Visit Encounter Details Date Type Department Care Team (Latest Contact Info) Description 11/20/2024 8:40 AM EDT Routine [facility] [address] [place] [phone] Les Martinez DO [address] [facility] [address] Justo [place], [facility] [address] [address] Well woman exam with routine gynecological exam; Exposure to STD; Second trimester ([facility]); 18 weeks gestation of ([facility]); Need for maternal serum alpha-protein (MSAFP) screening ([facility]); Screening, , for anatomic survey ([facility]); Thyroid disease Social History Tobacco Use Types [...] nursing note reviewed. Exam conducted with a ag equipment field service technician present. Vitals: Estimated body mass index is [...] gonorrhea DNA probe, direct 3. Second trimester ([facility]) Z34.92 POCT urinalysis dipstick manually resulted 4. 18 weeks gestation of ([facility]) Z3A.18 5. Need for maternal serum alpha-protein (MSAFP) screening ([facility]) Z36.1 Alpha fetoprotein, maternal Alpha fetoprotein, maternal 6. Screening, , for anatomic survey ([facility]) Z36.89 US OB 14+ weeks anatomy scan [...] Ancillary Procedure GUDELIA HERNANDEZ [address] [place] [address] 12/19/2024 10:00 AM EDT Routine [facility] HERNANDEZ [address] [place] [address] Jojo Ames PA [address] [place] [address] 02/20/2025 1:00 PM EST Office Visit GUDELIA HERNANDEZ [address] [place] [address] Les Martinez, DO [address] [place] [address] 08/21/2025 9:30 AM EDT Office Visit [facility] [place] [facility] [address] [place] [address] Darleen Sinclair MD [address] [place] [address] Scheduled Orders Name Type Priority Associated Diagnoses Order Schedule SURESWAB(R) ADVANCED VAGINITIS PLUS, TMA Pathology and Cytology Routine Exposure to STD Ordered: 11/20/2024 CHLAMYDIA TRACHOMATIS (GENITO/STI) Lab Routine Exposure to STD Ordered: 11/20/2024 Neisseria gonorrhea DNA probe, direct Lab Routine Exposure to STD Ordered: 11/20/2024 Alpha fetoprotein, maternal Lab Routine Need for maternal serum alpha-protein (MSAFP) screening ([facility]) Expected: 11/20/2024 (Approximate), Expires: 12/21/2024 OB 14+ weeks anatomy scan Imaging Routine Screening, , for anatomic survey ([facility]) Expected: 11/20/2024 (Approximate), Expires: 02/20/2025 TSH Lab [...] Routine 11/20/2024 9:12 AM EDT Second trimester ([facility]) documented in this encounter Results * (ABNORMAL) [...] gynecological examination Exposure to STD Second trimester ([facility]) state, incidental 18 weeks gestation of ([facility]) Need for maternal serum alpha-protein (MSAFP) screening ([facility]) Screening, , for anatomic survey ([facility]) Encounter for anatomic survey Thyroid disease Unspecified disorder of thyroid documented in this encounter Additional Health Concerns Active Problems Noted Date Diagnosed Date OB Reminders 10/22/2024 documented as of this encounter Care Teams Research Home Economist Relationship Specialty Start Date End Date Amanda Ford NP [address] [place], [place] [phone] PCP - General Family Medicine 01/17/23 documented as of this encounter
[2024-11-30] VITALS (12 sets, daily range): BP systolic 113–132; BP diastolic 62–82; PULSE 65–89; TEMP 37.1; O2SAT 99–100; BMI 35.6
--- OUTSIDE RECORDS SUMMARY | 2024-11-30 11:56 | XMS_ITS | Encounter Summary ---
Author Organization [facility] Address [address] [place] [address] Care Team Providers Care Passenger Service Supervisor Name Role Phone JovaniDaxa lundyAmanda Nikole SYS DIR Primary Care Provider Encounter Details Date Type Department Care Team (Late st Contact Info) Description 11/20/2024 Clinisync Result Encounter [facility] External Department Unsolicited Les Martinez, [address] [place] [address] Social History Tobacco Use Types Packs/Day Years [...] 8:30 AM EDT Ancillary Procedure [facility] [address] [place] [address] 12/19/2024 10:00 AM EDT Routine [facility] [place] [facility] [address] [facility] [place] [address] Jojo Ames PA [address] [facility] [address] [place], [place] [address] 02/20/2025 1:00 PM EST Office Visit [facility] [place] [facility] [address] [facility] [place] [address] Les Martinez DO [address] [facility] [address] [place], [place] [address] 08/21/2025 9:30 AM EDT Office Visit [facility] [address] [place] [address] Darleen Sinclair MD [address] [place] [address] documented as of this encounter Goals Goal Patient Goal Type Associated Problems Recent Progress Patient-Stated? Author Reminders Care Plan OB Reminders No Open Scheduling, Background documented as of this encounter Procedures Procedure Name Priority Date/Time Associated Diagnosis Comments AFP, SERUM, OPEN SPINA BIFIDA Routine 11/20/2024 10:37 AM EDT ALL THYROID STIM HORMONE Routine 11/20/2024 10:37 AM EDT documented in this encounter Results * AFP, SERUM, OPEN SPINA BIFIDA (11/20/2024 10:37 AM EDT) RESULTS Report . [facility] TEST RESULTS: *Screen Negative* . [facility] GEST. AGE ON COLLECTION DATE 18.0 . weeks [facility] GESTAT. AGE BASED ON Ultrasound . [facility] Comment: 18.0 on 11/20/2024 Recalculations are not recommended when gestational dating by LMP and ultrasound are within 10 days. MATER[age] DARWIN 30.1 . [age] [facility] RACE Other . [facility] WEIGHT 256 . lbs [facility] INSULIN DEP DIABETES No . [facility] MULTIPLE GESTATION No . [facility] AFP VALUE 27.6 . ng/mL H AFP MOM 0.87 . [facility] OS[place] [address] [place] [address] . [facility] INTERPRETATION Comment . [facility] Comment: Interpretation: Screen Negative This result is screen negative for OSB. The AFP MoM calculated is based on the gestational age provided. MS-AFP can identify up to 80% of open neural tube defects. Closed neural tube defects and some open defects may not be detected by this test. This test does not screen for Down Syndrome or Trisomy 18. If screening for Down Syndrome or Trisomy 18 is desired, contact [facility] to discuss available options. The [place] [employer] recommends amniocentesis be offered to women age 35 and older. COMMENT: Comment . [facility] Comment: Gisel Gandhi, Ph.D., [facility] Director References: Available Upon Request. Multiples Of Median Cutoffs For AFP Elevations [place] 2.5 Black 2.8 IDD 2.0 Twins 4.5 Abbreviation Definitions IDD - Insulin Dep Diabetes OSBR - Open Spina Bifida Risk For further inquiries contact [facility] at [phone]. This test was developed and its performance characteristics determined by [facility]. It has not been cleared or approved by the Food and Drug Administration. Performed at: [facility] [address] [id number] Web Operations Manager: Lorena Ellis [facility], Phone: [phone] 11/20/2024 10:3 7 AM EDT 11/20/2024 10:49 AM EDT Narrative [facility] - 11/22/2024 1:07 AM EDT N N ULTRASOUND [id number] 0 18 N 1 256 N N N N N White/ us Les Juan DO LAB BLOOD ORDERABLES Final Resul t [facility] * ALL THYROID STIM HORMONE (11/20/2024 10:37 AM EDT) THYROID STIMULATING HORMONE 1.702 0.358 - 3.740 uIU/mL [facility] 11/20/2024 10:3 7 AM EDT 11/20/2024 10:49 AM EDT Narrative [facility] - 11/20/2024 11:26 AM EDT Les Martinez DO [facility] Final Result [facility] documented in this encounter Visit Diagnoses Not on filedocumented in this encounter Additional Health Concerns Active Problems Noted Date Diagnosed Date OB Reminders 10/22/2024 documented as of this encounter Care Teams Passenger Service Supervisor Relationship Specialty Start Date End Date Amanda Ford NP [facility] [place] [address] PCP - General Family Medicine 01/17/23 documented as of this encounter
--- OUTSIDE RECORDS SUMMARY | 2024-11-30 11:56 | XMS_ITS | Clinical Summary ---
Author Organization [facility] Address [address] [place] [address] Care Team Providers Care Concrete Pipe Making Machine Operator Name Role Phone Unavailable Primary Care Provider [...] AM EDT Nurse Visit [facility]roductive Endocrinology Infertility [address] [place], [place] [phone] Early stage of (HCC) 09/03/2024 Patient Msg Reproductive Endocrinology Infertility [address] [place] [address] Manisha Powell APRN.JARROD Congratulations!!! from Last 3 Months Family History Medical [...] is lower risk 7 02/28/2024 Data from: https://www.neighborhoodatlas.medicine.[facility].edu/. Last address used for calculation [address] [...] 3-dose series) 03/04 Cervical Cancer Screening 2016 HPV Vaccine (1 - 3-dose SCDM series) 2022 Influenza Vaccine (#1) 2024 DTaP,Tdap,Td Vaccine (2 - Td or Tdap) 12/25/203212/2022 RSV Vaccine (1 - 1-dose 75+ series) 2070 HIV Screening Completed 04/02/2024 Hepatitis C Screening Completed 04/02/2024 Procedures Procedure Name Priority Date/Time Associated Diagnosis Comments OBSTETRIC ULTRASOUND WHI Routine 09/03/2024 10:27 AM EDT Early stage of (HCC) HIV 1/2 COMBO WITH REFLEX TO [...] yolk sac and pole is present. - [place] rump length measurement is consistent with the [...] Read By: Phoenix Raymond M.D. Shelly Hernandez FOIL OPERATOR.[facility] Final Result * HIV 1/2 COMBO WITH REFLEX TO DIFFERENTIATION (04/02/2024 3:21 PM EST) HIV 12 Combo (Ag/Ab) Nonreactive Nonreactive 04/03/2024 12:27 PM EST [facility] HIV-1/2 AB (Confirmatory) 04/03/2024 12:27 PM EST [facility] Comment:Test not indicated. HIV Interpretation 04/03/2024 12:27 PM EST [facility] Comment: No evidence of HIV-1 or HIV-2 infection. Should recent infection be suspected, repeat testing may be considered 2-3 weeks after this draw. [place] Rev. Code 3701.243(E): This information has been [...] EST 04/02/2024 3:22 PM EST Shelly Hernandez FOIL OPERATOR.[facility] Final Result [facility] [address] [address], * HEPATITIS C ANTIBODY IA WITH CONFIRMATION (04/02/2024 3:21 PM EST) Hep C Antibody IA Negative Negative 04/03/2024 11:20 AM EST [facility] Comment:The result suggests no evidence of active infection with Hepatitis C virus. Should recent infection be suspected, repeat testing may be considered 4-6 weeks after this draw. Blood BLOOD SPECIMEN / Unknown Venipuncture / Unknown 04/02/2024 3:21 PM EST 04/02/2024 3:22 PM EST us Shelly Hernandez FOIL OPERATOR.[facility] Final Result [facility] [address] [place] [place] [address], from Last 3 Months or Most Recently Relevant to Health Maintenance Insurance [employer] [place]
--- OUTSIDE RECORDS SUMMARY | 2024-11-30 11:56 | XMS_ITS | Encounter Summary ---
Author Organization [facility] Address [address] [place] [address] Care Team Providers Care Nut Dehydrator Operator Name Role Phone Jovaniinkkie Amanda Nikole LAP CUTTER Primary Care Provider Encounter Details Date Type Department Care Team (Late Contact Info) Description 10/17/2024 Abstract [facility] HERNANDEZ [address] [facility] [place] [address] Les Martinez DO [address] [facility] [address] [place], [place] [address] Social History Tobacco Use Types Packs/Day Years [...] AM EDT Ancillary Procedure NOMMarixa HERNANDEZ [address] [place] [address] 12/19/2024 10:00 AM EDT Routine [facility] Ricco HERNANDEZ [address] [facility] [place] [address] Jojo Ames PA [address] [facility] [place] [address] 02/20/2025 1:00 PM EST Office Visit [facility] Ricco HERNANDEZ [address] [facility] [place] [address] Les Martinez DO [address] [facility] [address] [place], [place] [address] 08/21/2025 9:30 AM EDT Office Visit [facility] [place] [facility] [address] [place] [address] Darleen Sinclair MD [address] [place] [address] documented as of this encounter Visit Diagnoses Not on filedocumented in this encounter Care Teams Nut Dehydrator Operator Relationship Specialty Start Date End Date Amanda Ford NP [address] [facility] [place] [address] PCP - General Family Medicine 01/17/23 documented as of this encounter
--- OUTSIDE RECORDS SUMMARY | 2024-11-30 11:56 | XMS_ITS | Encounter Summary ---
Author Organization [facility] Address [address] [place] [address] Care Team Providers Care Lead Software Architect Name Role Phone Unavailable Primary Care Provider Unavailabl e Source Comments In the event this information is protected by the Federal Confidentiality of Alcohol and Drug AbusePatient Records regulations: The Federal rules restrict any use of the information to criminally investigate or prosecute any alcohol or drug abuse patient.[facility] Encounter Details Date Type Department Care Team (Latest Contact Info) Description 05/09/2024 Patient Msg Reproductive Endocrinology Infertility [address] [place] [address] Shelly Hernandez APRN.ADVERTISING ANALYST [address] [place] [address] Summary of Next Steps Social History Tobacco Use Types Packs/Day Years Used Date Smoking Tobacco: Never Assessed Area Deprivation Index Answer Date Claudio rded National Score (1-100), lower number is lower ri sk 82 02/28/2024 State Score (1-10), lower number is lower risk 7 02/28/2024 Data from: https://www.neighborhoodatlas.medicine.[facility].edu/. Last address used for calculation [...]
--- OUTSIDE RECORDS SUMMARY | 2024-11-30 11:56 | XMS_ITS | Encounter Summary ---
Author Organization [facility] Address [address] [place] [address] Care Team Providers Care Credit Risk Officer Name Role Phone Amanda Ford LANDSCAPE MAINTENANCE INTERNSHIP Primary Care Provider Encounter Details Date Type Department Care Team (Late st Contact Info) Description 11/30/2024 Telephone [facility] HERNANDEZ [address] [place] [address] Lisa Campbell LPN [address] [place] [address] Social History Tobacco Use Types Packs/Day Years [...] on file documented as of this encounter Miscellaneous Notes * Telephone Encounter - Lisa Campbell LPN - 11/30/2024 9:17 AM EDT Hi, my name is Jaz, man, my birthday is [id number] just had a question about possibly having high blood pressure. I am 20 weeks on Tuesday next week. I have been having really bad headachesfor the last couple weeks. And feel like my heart is beating really hard sometimes and my feet and my ankles have Started getting pretty swollen in the last week or so. So I was just wondering if that was high blood pressure or what you guys wanted me to do about it. My numbers [phone]. Thank you. I advised pt to go to the ER and get evaluated, that way if BP is high, she can get started on medication and can get further testing done if needed. PVU documented in this encounter Plan of Treatment Upcoming Encounters Date Type Department Care Team (Late st Contact Info) Description 12/04/2024 8:30 AM EDT Ancillary Procedure [facility]a HERNANDEZ [address] [facility] [place] [address] 12/19/2024 10:00 AM EDT Routine NOMMar[facility]a HERNANDEZ [address] [place] [address] Jojo Ames PA [address] [facility] [address] 02/20/2025 1:00 PM EST Office Visit GUDELIA HERNANDEZ [address] [place] [address] Les Martinez DO [address] [facility] [place] [place] [address] 08/21/2025 9:30 AM EDT Office Visit [facility] [address] [place] [address] Darleen Sinclair MD [address], [address] [place] [address] documented as of this encounter Goals Goal Patient Goal Type Associated Problems Recent Progress Patient-Stated? Author Reminders Care Plan OB Reminders No Open Scheduling, Background documented as of this encounter Visit Diagnoses Not on filedocumented in this encounter Additional Health Concerns Active Problems Noted Date Diagnosed Date OB Reminders 10/22/2024 documented as of this encounter Care Teams Credit Risk Officer Relationship Specialty Start Date End Date Amanda Ford NP [address] [place] [address] PCP - General Family Medicine 01/17/23 documented as of this encounter
--- OUTSIDE RECORDS SUMMARY | 2024-11-30 11:56 | XMS_ITS | Encounter Summary ---
Author Organization [facility] Address [address] [facility], [address] [place] [address] Care Team Providers Care Turbine Technician Name Role Phone Robin Marquez MD Primary Care Provider [phone] Reason for Visit * Reason Comments Medication Refill Encounter Details Date Type Department Care Team (Late st Contact Info) Description 03/22/2019 Refill [facility] [address] [place] [address] [place] [address] Christina Arreguin, CIAIO LUMITE INJECTOR - BUTTON RIVETER Medication Refill Social History Tobacco Use Types [...] documented as of this encounter Care Teams Turbine Technician Relationship Specialty Start Date End Date Robin Marquez MD [address] [place] [address] PCP - General Family Medicine 10/10/18 documented as of this encounter
--- OUTSIDE RECORDS SUMMARY | 2024-11-30 11:56 | XMS_ITS | Encounter Summary ---
Author Organization [facility] Address [address] [place] [address] Care Team Providers Care Fraud Examiner Name Role Phone Logan Amanda Nikole PATENT LAW SPECIALIST Primary Care Provider Encounter Details Date Type Department Care Team (Late st Contact Info) Description 10/22/2024 Abstract [facility] [address] [place] [address] Sadiq Kerrie, [place] Social History Tobacco Use Types Packs/Day Years [...] Procedure [facility] [address] [place] [address] 12/19/2024 10:00 AM EDT Routine [place] [phone] Jojo Ames PA [address] [facility] [place] [address] 02/20/2025 1:00 PM EST Office Visit [facility] [address] [facility] [place] [phone] Les Martinez DO [address] [facility] [place] [address] 08/21/2025 9:30 AM EDT Office Visit [facility] [address] [place] [address] Darleen Sinclair MD [address] [place] [address] documented as of this encounter Goals Goal Patient Goal Type Associated Problems Recent Progress Patient-Stated? Author Reminders Care Plan OB Reminders No Open Scheduling, Background documented as of this encounter Visit Diagnoses Not on filedocumented in this encounter Additional Health Concerns Active Problems Noted Date Diagnosed Date OB Reminders 10/22/2024 documented as of this encounter Care Teams Fraud Examiner Relationship Specialty Start Date End Date Amanda Ford NP [address] [facility] [place] [address] PCP - General Family Medicine 01/17/23 documented as of this encounter
--- OUTSIDE RECORDS SUMMARY | 2024-11-30 11:56 | XMS_ITS | Encounter Summary ---
Author Organization [facility] Address [address] [facility] [facility], [address] [place] [address] Care Team Providers Care Design Editor Name Role Phone Robin Marquez MD Primary Care Provider [phone] Reason for Visit * Reason Comments Medication Refill Encounter Details Date Type Department Care Team (Late st Contact Info) Description 03/08/2019 Refill [facility] [address] [place] [address] [place] [phone] Chritsina Arreguin, SKIMMER SCOOP OPERATOR - VP DIRECTOR OF CREATIVE STRATEGY Medication Refill Social History Tobacco Use Types [...] documented as of this encounter Care Teams Design Editor Relationship Specialty Start Date End Date Robin Marquez MD [address] [place] [address] PCP - General Family Medicine 10/10/18 documented as of this encounter
--- OUTSIDE RECORDS SUMMARY | 2024-11-30 11:56 | XMS_ITS | Encounter Summary ---
Author Organization [facility] Address [address] [place] [address] Care Team Providers Care Production Planner Name Role Phone Unavailable Primary Care Provider Unavailabl e Source Comments In the event this information is protected by the Federal Confidentiality of Alcohol and Drug AbusePatient Records regulations: The Federal rules restrict any use of the information to criminally investigate or prosecute any alcohol or drug abuse patient.[facility] Encounter Details Date Type Department Care Team (Late st Contact Info) Description 05/15/2024 Get Medical Advice Reproductive Endocrinology Infertility [address] [place] [address] Shelly Hernandez APRN.PRODUCTION LAPPING MACHINE OPERATOR [address] [place] [address] [employer] order Social History Tobacco Use Types Packs/Day Years Used Date Smoking Tobacco: Never Assessed Area Deprivation Index Answer Date Claudio rded National Score (1-100), lower number is lower ri sk 82 02/28/2024 State Score (1-10), lower number is lower risk 7 02/28/2024 Data from: https://www.neighborhoodatlas.medicine.[facility].edu/. Last address used for calculation [...]
--- OUTSIDE RECORDS SUMMARY | 2024-11-30 11:56 | XMS_ITS | Encounter Summary ---
Author Organization [facility] Address [address] [place] [address] Care Team Providers Care Surgery Assistant Name Role Phone Unavailable Primary Care Provider Unavailabl e Source Comments In the event this information is protected by the Federal Confidentiality of Alcohol and Drug AbusePatient Records regulations: The Federal rules restrict any use of the information to criminally investigate or prosecute any alcohol or drug abuse patient.[facility] Encounter Details Date Type Department Care Team (Late st Contact Info) Description 09/03/2024 Patient Msg Reproductive Endocrinology Infertility [address] [facility] [place] [place] [address] Manisha Powell APRN.LOT ATTENDANT [address] [place] [address] Congratulations!!! Social History Tobacco Use Types Packs/Day Years Used Date Smoking Tobacco: Never Assessed Area Deprivation Index Answer Date Claudio rded National Score (1-100), lower number is lower ri sk 82 02/28/2024 State Score (1-10), lower number is lower risk 7 02/28/2024 Data from: https://www.neighborhoodatlas.medicine.[facility].edu/. Last address used for calculation [address] [...]
--- OUTSIDE RECORDS SUMMARY | 2024-11-30 11:56 | XMS_ITS | Clinical Summary ---
Author Organization [facility] Address [address], [address] [place] [address] Care Team Providers Care Rn Occupational Name Role Phone Robin Marquez MD Primary Care Provider [phone] Allergies No known active allergies Medications levothyroxine [...] 4:42 PM 05/08/2020 3:13 PM Care Teams Rn Occupational Relationship Specialty Start Date End Date Robin Marquez MD [address] [id number] PCP - General Family Medicine 10/10/18
--- OUTSIDE RECORDS SUMMARY | 2024-11-30 11:56 | XMS_ITS | Encounter Summary ---
Author Organization [facility] Address [address] [place] [address] Care Team Providers Care Laborer Chemical Processing Name Role Phone Logan Amanda Nikole STEAM DRIER OPERATOR Primary Care Provider Encounter Details Date Type Department Care Team (Late st Contact Info) Description 10/22/2024 Abstract [facility] [address] [place] [address] Sadiq Ker[place], [place] Social History Tobacco Use Types Packs/Day Years [...] Procedure [facility] [address] [place] [address] 12/19/2024 10:00 AM EDT Routine [place] [phone] Jojo Ames PA [address] [facility] [place] [address] 02/20/2025 1:00 PM EST Office Visit [facility] [address] [facility] [place] [phone] Les Martinez DO [address] [facility] [place] [address] 08/21/2025 9:30 AM EDT Office Visit [facility] [address] [place] [address] Darleen Sinclair MD [address] [place] [address] documented as of this encounter Goals Goal Patient Goal Type Associated Problems Recent Progress Patient-Stated? Author Reminders Care Plan OB Reminders No Open Scheduling, Background documented as of this encounter Visit Diagnoses Not on filedocumented in this encounter Additional Health Concerns Active Problems Noted Date Diagnosed Date OB Reminders 10/22/2024 documented as of this encounter Care Teams Laborer Chemical Processing Relationship Specialty Start Date End Date Amanda Ford NP [address] [facility] [place] [address] PCP - General Family Medicine 01/17/23 documented as of this encounter
--- OUTSIDE RECORDS SUMMARY | 2024-11-30 11:56 | XMS_ITS | Encounter Summary ---
Author Organization [facility] Address [address] [place] [address] Care Team Providers Care Flight Engineer Name Role Phone Logan Amanda Nikole BRUSH CUTTER Primary Care Provider Encounter Details Date Type Department Care Team (Late st Contact Info) Description 10/22/2024 Abstract [facility] [address] [place] [address] Sadiq Kerrie, [place] Social History Tobacco Use Types Packs/Day Years [...] Procedure [facility] [address] [place] [address] 12/19/2024 10:00 AM EDT Routine [place] [phone] Jojo Ames PA [address] [facility] [place] [address] 02/20/2025 1:00 PM EST Office Visit [facility] [address] [facility] [phone] Les Martinez DO [address] [facility] [place] [address] 08/21/2025 9:30 AM EDT Office Visit [facility] [address] [place] [address] Darleen Sinclair MD [address] [place] [address] documented as of this encounter Goals Goal Patient Goal Type Associated Problems Recent Progress Patient-Stated? Author Reminders Care Plan OB Reminders No Open Scheduling, Background documented as of this encounter Visit Diagnoses Not on filedocumented in this encounter Additional Health Concerns Active Problems Noted Date Diagnosed Date OB Reminders 10/22/2024 documented as of this encounter Care Teams Flight Engineer Relationship Specialty Start Date End Date Amanda Ford NP [address] [place] [address] PCP - General Family Medicine 01/17/23 documented as of this encounter
--- OUTSIDE RECORDS SUMMARY | 2024-11-30 11:56 | XMS_ITS | Continuity of Care Document ---
Author Organization [facility] Address [address] [place] [address] Phone Care Team Providers Care Micropaleontologist Name Role Phone Amanda Ford APRN Primary Care Provider Kassidy Arriaza DO Emergency Provider Care Teams Patient Care Team Team Status: Active Member Role Status Dates Amanda Ford APRN CERTIFIED FINANCIAL PLANNER-C Primary Care Provider Active Visit Care Team Team Status: Inactive Member Role Status Dates Amanda Ford APRN CERTIFIED FINANCIAL PLANNER-C Primary Care Provider Active Start: October 18, 2024 End: October 18, 2024 Kassidy Arriaza DO Emergency Provider Active Start: October 18, 2024 End: October 18, 2024 Chief Complaint and Reason for Visit Chief Complaint Admit Date 13 weeks prego spotting October 18, 2024 1 0:16am Allergies, Adverse Reactions, Alerts Allergen Type Severity Reaction Last Updated Verified Status NSAIDS (Non-Steroidal Anti-Inflamma Allergy Unknown Instructed not to take NSAIDS by PCP d/t weight loss surgery October 18, 2024 10:39am Yes Active Social History Smoking Status Status Start Date End Date Date of Observa tion Ex-smoker (finding) October 11:39am Observation Status Observation Response Date of Response Legal Sex Female (finding) Sex Assigned At Female [birth year] Status Y October 18, 2024 Family History Relationship Condition Age at Onset Recorded Date/T sanjuanita mother Overactive bladder Unknown Depression Unknown Hypothyroidism Unknown Family history of thyroid disease Unknown Family history of mental disorder Unknown father Overactive bladder Unknown Hypertension Unknown Hypothyroidism Unknown Family history of thyroid disease Unknown Diabetes mellitus Unknown sister Overactive bladder Unknown Hypothyroidism Unknown Family history of thyroid disease Unknown Problems Active Problems Medical Problem Onset Date Status Comments Right carpal tunnel syndrome Unknown Active Acute flank pain Unknown Active Acute urticaria Unknown Active Status post arthroscopy of r ight shoulder Unknown Active Degenerative superior labral pgerqwwg-uq-qsojfihgd (SLAP) tear of right shoulder Unknown Active 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 sleep study 2009 Other instability, right shoulder Unknown Active Laxity of ligament Unknown Active right matthias ulder Fever Unknown Active Chills Unknown Active DUB (dysfunctional uterine bleeding) Unknown Acti ve Abscess Unknown Active Anemia Unknown Active ADD (attention deficit disorder) Unknown Active Bipolar disorder Unknown Active Encounter for recheck of abs cess following incision and drainage Unknown Active Hypothyroid Unknown Active Other chronic pain Unknown Active H/O gastric sleeve Unknown Active April 19 Numbness of right hand Unknown Active Iron deficiency anemia Unknown Active Gastroesophageal reflux dise ase without esophagitis Unknown Active Anxiety and depression Unknown Active Abdominal pain Unknown Active Constipation Unknown Active Vomiting Unknown Active Inactive/Resolved Problems Medical Problem Onset Date Status Comments Vaginal bleeding during Unknown Resolve d Medications Medication Status Dose Units Route Directions Qty Days St art Date Stop Date End Date Instructions Adherence Lansoprazol e 30 mg capsule,del ayed release(DR/ EC) Discont inued 30 MG PO Daily 90 August 15, 2023 8:55am Augus t 2023 4:02p m Docusate Sodium 100 mg capsule Discont inued 100 MG PO Twice daily as needed for constipatio n 90 August 15, 2023 12:59p m Augus t 2023 6:43a m Ferrous Sulfate 325 mg (65 mg iron) tablet Discont inued 325 MG PO Daily August 29, 2023 11:07a m Augus t 2023 3:18p m Lidocaine 5 % adhesive patch,medic ated Discont inued 0 .ROUTE .COMPLEX October 24, 2023 8:47am Octob er 2023 12:04 pm APPLY 1 PATCH TOPICALLY ONCE DAILY. REMOVE AFTER 12 HOURS Oxycodone 5 mg tablet Discont inued 5 MG PO Q6H as needed for Pain 04 09December 06, 2023 Augus t 2023 7:13a m Docusate Sodium (Colace) 100 mg capsule Discont inued 100 MG PO Twice daily as needed for Constipatio n 20 10 December 06, 2023 12:00a m Augus t 2023 6:44a m Acetaminoph en 500 mg tablet Active 500 MG PO Q6H as needed for Pain December 06, 2023 12:00a m Unknown Oxycodone 5 mg tablet Discont inued 5 MG PO .q6-8hrs as needed for severe pain 12 5 December 09, 2023 Septe mber 2023 10:47 am Take with food. Do not fill until 12/10/23. Tramadol 50 mg tablet Discont inued 50 MG PO Every 8 hours as needed for pain 15 7 December 15, 2023 3:44pm Octob er 2023 12:04 pm Lansoprazol e 30 mg capsule,del ayed release(DR/ EC) Discont inued 30 MG PO Every morning 90 Octobe r 2023 11:57a m August 07, 2024 2:30p m Lidocaine 5 % adhesive patch,medic ated Discont inued 1 PATCH TOPICA L Daily Novemb er 2023 1:00am 2023 9:54a m leave on most painful area for up to 12 hrs Lidocaine 5 % adhesive patch,medic ated Discont inued 0 .ROUTE .COMPLEX 30 Novemb er 2023 9:53am 2024 9:57a m APPLY 1 PATCH TOPICALLY ONCE DAILY. REMOVE AFTER 12 HOURS Docusate Sodium 100 mg capsule Discont inued 100 MG PO Daily 60 Decemb er 2023 1:00am [facility] wenceslao 2023 9:58a m Docusate Sodium (Stool Softener) 100 mg capsule Discont inued 0 .ROUTE .COMPLEX 90 Decemb er 2023 9:58am 2024 9:57a m TAKE 1 CAPSULE BY MOUTH TWICE DAILY NEEDED FOR CONSTIPATION Lansoprazol e 30 mg capsule,del ayed release(DR/ EC) Active 30 MG PO Every morning 90 90 August 07, 2024 2:29pm Unknown Quetiapine 25 mg tablet Active 25 MG PO Bedtime Decemb er 2021 1:00am Unknown Lamotrigine 200 mg tablet Active 200 MG PO Every morning Decemb er 2021 1:00am Unknown Buspirone 15 mg tablet Discont inued MG [facility] er 2021 1:00am Febru cj 2022 6:28p m Medroxyprog esterone (Provera) 10 mg tablet Discont inued 10 MG PO Daily 10 10 [facility] er 2021 1:00am Febru cj 2022 6:28p m begin day 16 of cycle Polysacchar tico Iron Complex (Pro Fe) 180 mg iron capsule Discont inued 180 MG PO Daily December 07, 2023 12:00a m Janua ry 2024 3:52p m Tramadol 50 mg tablet Discont inued 50 MG PO Every 8 hours as needed for pain 7 December 07, 2023 12:00a m Augus t 2023 3:45p m Polysacchar tico Iron Complex (Pro Fe) 180 mg iron capsule Active 180 MG PO Twice daily r y 2024 3:51pm Unknown Levothyroxi ne 175 mcg Tablet Discont inued 175 MCG PO every other day October 08, 2019 12:00a m August 01, 2021 2:19p m 1 tablet on odd days Cyclobenzap rine 10 mg tablet Discont inued 10 MG PO Three times daily as needed for Muscle Spasm October 08, 2019 12:00a m August 01, 2021 2:19p m Levothyroxi ne 175 mcg Tablet Discont inued 262 MCG PO every other day October 08, 2019 12:00a m August 01, 2021 2:19p m 1.5 tabs every other day on even days Norgestimat e-Ethinyl Estradiol (Sprintec (28)) 0.25-35 mg-mcg tablet Discont inued 1 TAB PO Daily October 08, 2019 12:00a m August 01, 2021 2:19p m Lamotrigine 200 mg tablet Discont inued 200 MG PO Daily at bedtime October 08, 2019 12:00a m August 01, 2021 2:19p m Alprazolam (Xanax) 0.5 mg Tablet Discont inued 0.5 MG PO Three times daily as needed for Anxiety October 08, 2019 12:00a m Dece 2021 7:18p m Lansoprazol e 30 mg capsule,del ayed release(DR/ EC) Discont inued 30 MG PO Daily October 08, 2019 12:00a m August 15, 2023 8:56a m Ergocalcife rol (Vitamin D2) (Vitamin D2) 1,250 mcg (50,000 unit) capsule Discont inued 07774 UNIT PO every week October 08, 2019 12:00a m August 01, 2021 2:19p m Takes on Tuesday Ziprasidone Hcl (Geodon) 60 mg Capsule Discont inued 60 MG PO Twice daily October 08, 2019 12:00a m August 01, 2021 2:19p m Doxycycline Hyclate 100 mg tablet Discont inued 100 MG PO Twice daily August 01, 2021 12:00a m Dece 2021 7:18p m Hydrocodone -Acetaminop hen 5-325 mg tablet Discont inued 1 TAB PO Q8H as needed for pain 7 August 01, 2021 Dece wenceslao 2021 7:18p m Cyclobenzap rine 10 mg tablet Discont inued 10 MG PO Bedtime 2022 1:00am Augus t 2023 3:55p m Alprazolam (Xanax) 0.5 mg Tablet Discont inued 0.5 MG PO Daily as needed for Anxiety 2022 1:00am u 2023 9:04a m Buspirone 15 mg tablet Discont inued 15 MG PO Three times daily 2022 1:00am u 2023 9:04a m TAKE 1 TABLET BY MOUTH THREE TIMES DAILY NEEDED FOR 30 DAYS Mupirocin Calcium 2 % cream Active 1 APPLIC TOPICA L Twice daily as needed for GENITAL BOILS 2022 1:00am Unknown Ferrous Sulfate 325 mg (65 mg iron) tablet Discont inued 325 MG PO Daily 2022 1:00am August 29, 2023 11:07 am Docusate Sodium 100 mg capsule Discont inued 100 MG PO Twice daily as needed for constipatio n 30 2022 2:05pm August 15, 2023 12:59 pm Buspirone 15 mg tablet Active 15 MG PO Twice daily 2023 9:01am Unknown Alprazolam (Xanax) 0.5 mg tablet Active 0.5 MG PO Twice daily as needed for Anxiety 2023 9:03am Unknown acetaminoph en (Tylenol Extra Strength) Discont inued 1000 MG PO EVERY 8-10 HOURS as needed for pain November 28, 2023 12:00a m Octob er 2023 12:03 pm Diclofenac Sodium (Aleve (Diclofenac )) 1 % gel Discont inued 1 GM TOPICA L Four times daily as needed for pain November 28, 2023 12:00a m Octob er 2023 12:03 pm apply to single elbow, wrist or hand; for hand includes palm/fingers/ back of hand Lansoprazol e 30 mg capsule,del ayed release(DR/ EC) Discont inued 30 MG PO Every morning November 28, 2023 12:00a m Octob 2023 11:58 am Levothyroxi ne 50 mcg capsule Discont inued 50 MCG PO Every morning October 13, 2023 12:00a m 2024 9:56a m Lidocaine 5 % adhesive patch,medic ated Discont inued 1 PATCH TOPICA L Daily as needed 2023 1:00am October 24, 2023 8:48a m REMOVE AFTER 12 HOURS Naltrexone 50 mg tablet Discont inued 50 MG PO Twice daily 2023 1:00am 2024 3:52p m Naltrexone 50 mg tablet Active 100 MG PO Twice daily 2024 3:51pm Unknown Bupropion Hcl (Wellbutrin Sr) 150 mg tablet sustained-r elease 12 hr Active 150 MG PO Daily 2024 1:00am Unknown Docusate Sodium (Stool Softener) 100 mg capsule Active 0 .ROUTE .COMPLEX 2024 9:52am TAKE 1 CAPSULE BY MOUTH TWICE DAILY NEEDED FOR CONSTIPATION Unknown Lidocaine 5 % adhesive patch,medic ated Active 0 .ROUTE .COMPLEX 30 30 2024 9:53am APPLY 1 PATCH TOPICALLY ONCE DAILY. REMOVE AFTER 12 HOURS Unknown Levothyroxi ne 50 mcg tablet Active 50 MCG PO Daily 90 90 2024 1:00am Unknown Immunizations Immunization Event Date Not Given Reason Dose Number Chair Finisher Lot Number Vaccine Information Statement (VIS) Detail Administration Location COVID-19 mRNA-1273 (Moderna) July 22, 2020 COVID-19 mRNA-1273 (Moderna) August 19, 2020 Medical Equipment Device Date Implanted Device Details Tendon/ligament bone anchor, non-bioabsorbable December 07, 2023 GIULIANO: ()[id number] Issuing Agency: [facility] [[email or web address]] Device Id: [id number] Expiration Date: 2028-09-15 Lot Number: [id number] Tendon/ligament bone anchor, non-bioabsorbable December 07, 2023 GIULIANO: ()[id number] Issuing Agency: [facility] [[email or web address]] Device Id: [id number] Expiration Date: 2028-09-15 Lot Number: [id number] Tendon/ligament bone anchor, non-bioabsorbable December 07, 2023 GIULIANO: ()[id number] Issuing Agency: [facility] [[email or web address]] Device Id: [id number] Expiration Date: 2028-09-15 Lot Number: [id number] Tendon/ligament bone anchor, non-bioabsorbable December 07, 2023 GIULIANO: ()[id number] Issuing Agency: [facility] [[email or web address]] Device Id: [id number] Expiration Date: 2028-09-15 Lot Number: [id number] Tendon/ligament bone anchor, non-bioabsorbable December 07, 2023 GIULIANO: ()[id number] Issuing Agency: [facility] [[email or web address]] Device Id: [id number] Expiration Date: 2028-09-15 Lot Number: [id number] Tendon/ligament bone anchor, non-bioabsorbable December 07, 2023 GIULIANO: ()[id number] Issuing Agency: [facility] [[email or web address]] Device Id: [id number] Expiration Date: 2028-09-15 Lot Number: [id number] Tendon/ligament bone anchor, non-bioabsorbable December 07, 2023 GIULIANO: ()[id number] Issuing Agency: [facility] [[email or web address]] Device Id: [id number] Expiration Date: 2028-09-15 Lot Number: [id number] Tendon/ligament bone anchor, non-bioabsorbable December 07, 2023 GIULIANO: ()[id number] Issuing Agency: [facility] [[email or web address]] Device Id: [id number] Expiration Date: 2028-05-18 Lot Number: [id number] Tendon/ligament bone anchor, non-bioabsorbable December 07, 2023 GIULIANO: ()[id number] Issuing Agency: [facility] [[email or web address]] Device Id: [id number] Expiration Date: 2028-05-18 Lot Number: [id number] Tendon/ligament bone anchor, non-bioabsorbable December 07, 2023 GIULIANO: ()[id number] Issuing Agency: [facility] [[email or web address]] Device Id: [id number] Expiration Date: 2028-05-18 Lot Number: [id number] BUTTON NASAL SEPTAL 3CM October 15, 2019 Procedures Procedure Date Performed Status US OB <= 14 weeks fetus October 18, 2024 12:16pm c ompleted Urine Culture October 18, 2024 completed Genital Culture October 18, 2024 completed Fungal Smear October 18, 2024 cancelled Trichomonas Wet Mount October 18, 2024 cancelled Relevant Diagnostic Tests and/or Laboratory Data Laboratory Results Test Collection Date/Time Result Date/Time Result Interpretation Reference Range Result Comment Performing Site Urine Color October 18, 2024 1:10pm October 18, 2024 1:48pm Colorless [facility] [id number] [address] [place] [address] Urine Appearan ce October 18, 2024 1:10pm October 18, 2024 1:48pm Clear Clear [facility] [id number] [address] [facility] [address] Urine Specific Avinger October 18, 2024 1:10pm October 18, 2024 1:48pm 1.007 1.001-1.03 0 [facility] [id number] [address] [place] [address] Urine pH October 18, 2024 1:10pm October 18, 2024 1:48pm 7.0 5.0-9.0 [facility] [id number] [address] [facility] [address] Urine Leukocyt e Esterase October 18, 2024 1:10pm October 18, 2024 1:48pm Negative Negative [facility] [id number] [address] [place] [address] Urine Nitrite October 18, 2024 1:10pm October 18, 2024 1:48pm Negative Negative [facility] [id number] [address] [place] [address] Urine Protein October 18, 2024 1:10pm October 18, 2024 1:48pm Negative mg/dL Negative [facility] [id number] [address] [place] [address] Urine Glucose (UA) October 18, 2024 1:10pm October 18, 2024 1:48pm Normal mg/dL Normal [facility] [id number] [address] [place] [address] Urine Ketones October 18, 2024 1:10pm October 18, 2024 1:48pm Trace Above high normal Negative [facility] [id number] [address] [place] [address] 459[address] Urine Urobilin ogen October 18, 2024 1:10pm October 18, 2024 1:48pm Normal mg/dL Normal [facility] [id number] [address] [place] [address]338 Urine Bilirubi n October 18, 2024 1:10pm October 18, 2024 1:48pm Negative Negative [facility] [id number] [address] [place] [address] Urine Occult Blood October 18, 2024 1:10pm October 18, 2024 1:48pm Negative Negative [facility] [id number] [address] [place] [address] Chlamydi a trachoma tis DNA (AC) October 18, 2024 12:25pm October 22, 2024 8:08pm Negative Negative [facility] 00 Neisseri a gonorrho eae DNA (AC) October 18, 2024 12:25pm October 22, 2024 8:08pm Negative Negative Performed at: =[facility] [id number] Director: Dagmar Love MD, Phone: [phone] [facility] 00 Microbiology Results Procedure Source Result Collection Date/Time Result Date/Time Result Comment Performing Site Urine Culture Clean Void Midstream 2 Days October 18, 2024 1:10pm October 20, 2024 9:42am [facility] [id number] [address] [place] [address] Genital Culture Genital October 18, 2024 12:25pm October 20, 2024 9:16am [facility] [id number] [address] [place] [address] Diagnostic Imaging Reports Author Sraavn Dickinson [facility] Authored October 18, 2024 2:19p m Report Dictated Date/Time Dictated By Status Radiology Report October 18, 2024 2:19pm Sravan leblanc Jr DO completed [facility] [address] [address] Ultrasound Report Signed Patient: Jaz Sanders MR#: [id number] : 1995 Acct:[id number] Age/Sex: 29 / F ADM Date: 5 Loc: ER Room: Type: [facility] ER Attending Dr: Ordering Provider: Kassidy [...] seen. Impression dictated by: Sravan Dickinson Jr., D.O. 10/18/2024 2:21 PM Dictation Location: [place] [address] Tech: Natalie Haji Transcribed By: MAITE 10/18/24 1421 Dictated By: Sravan Dickinson Jr, DO 10/18/24 1419 Signed By: <Electronically signed by Sravan Dickinson Jr DO in OV> 10/18/24 1421 Vital Signs Vital Reading Result Reference Range Collection Date/Time Height 71 [in_i] October 18, 2024 10:38am Weight 106.85 kg October 18, 2024 10:38am Body Temperature 98.1 [degF] 97.6-99.0 October 18, 2 025 10:38am Heart Rate 60 /min 60-100 October 18, 2024 1:34pm Respiratory rate 18 /min 12-24 October 18, 2 025 1:34pm Oxygen saturation by Pulse oximetry 99 % 95-100 October 18, 2024 1:34p m BP Systolic 112 mm[Hg] 100-140 October 18, 2024 1:34pm BP Diastolic 71 mm[Hg] 60-100 October 18, 2024 1:34pm Advance Directives Advance Directive Response Recorded Date/ Time Advance Directives No March 4:24pm Insurance Providers Guarantor Jaz Sanders Address [address] [place] [id number] Contact Info. Home Phone: Payer Policy Id Subscriber's Name Subscriber Id Effectiv e Date Expiration Date [facility] [id number] Julieta Nunez [id number] Encounters Encounter Location(s) Arrival/Admit Date Discharge/Depart Date Provider(s) Departed Emergency -Emergency Room October 18, 2024 10:16am October 18, 2024 2:49pm Plan of Treatment Future Tests Future scheduled test information is unavailable Pending Tests Pending diagnostic test information is unavailable Future Visits Future appointment information is unavailable Referrals to Other Providers Reason for Referral Referral Start Date Provider Provider Contact Information Provider Address Amanda Ford APRN MANUSCRIPTS CURATOR Work Phone: [address] [place] [address] Future Procedures Future procedure information is unavailable Future Medications Future medication information is unavailable Patient Instructions Instruction Admit Date Bleeding in late October 18 10:16am Hospital Discharge Instructions Additional Instructions We evaluated you for your vaginal bleeding in . Your ultrasound was normal, the baby has a good heart rate, measuring at 13 weeks and 1 day. Your cervix was closed. Follow-up closely with your MEDICAL LABORATORY TECHNOLOGIST. Return to the emergency department if you develop any worsening or concerning symptoms.
--- OUTSIDE RECORDS SUMMARY | 2024-11-30 11:56 | XMS_ITS | Encounter Summary ---
Author Organization [facility] Address [address] [place] [address] Care Team Providers Care Office Assistant Name Role Phone Jovaninikkie Amanda Nikole TANK SETTER HELPER Primary Care Provider Encounter Details Date Type Department Care Team (Late st Contact Info) Description 11/20/2024 External Result Encounter [facility] Unsolicited Les Martinez, DO [address] [place] [address] Social History Tobacco Use Types Packs/Day Years [...] EDT Ancillary Procedure [facility] [address] [place] [id number] 12/19/2024 10:00 AM EDT Routine [facility] [address] [place] [phone] Jojo Ames PA [address] [place] [address] 02/20/2025 1:00 PM EST Office Visit [facility] [place] [facility] [address] [place] [address] Les Martinez DO [address] [place] [place], [place] [id number] 08/21/2025 9:30 AM EDT Office Visit [facility] [address] [place] [address] Darleen Sinclair MD [address] [place] [address] documented as of this encounter Goals Goal Patient Goal Type Associated Problems Recent Progress Patient-Stated? Author Reminders Care Plan OB Reminders No Open Scheduling, Background documented as of this encounter Procedures Procedure Name Priority Date/Time Associated Diagnosis Comments RECURRENT VAGINITIS (HTRX) Routine 11/20/2024 10:51 AM EDT documented in this encounter Results * RECURRENT VAGINITIS (HTRX) (11/20/2024 10:51 AM EDT) ATOPOBIUM VAGINAE 0 19.961 - 24.689 ppm 11/21/2024 5:57 AM EDT [facility] ATOPOBIUM VAGINAE Not Detected 19.961 - 24.689 ppm 11/21/2024 5:57 AM EDT [facility] BVAB 2,3 (BACTERIAL VAGINOSIS ASSOCIATED BACTERIA 2, 3); MOBILUNCUS SPP 0 19.961 - 24.689 ppm 11/21/2024 5:57 AM EDT [facility] BVAB 2,3 (BACTERIAL VAGINOSIS ASSOCIATED BACTERIA 2, 3); MOBILUNCUS SPP Not Detected 19.961 - 24.689 ppm 11/21/2024 5:57 AM EDT [facility] GLORIA ALBICANS, PARAPSILOSIS, TROPICALIS 0 23.000 - 30.347 ppm 11/21/2024 5:57 AM EDT [facility] GLORIA ALBICANS, PARAPSILOSIS, TROPICALIS Not Detected 23.000 - 30.347 ppm 11/21/2024 5:57 AM EDT [facility] GLORIA GLABRATA 0 23.000 - 31.618 ppm 11/21/2024 5:57 AM EDT [facility] GLORIA GLABRATA Not Detected 23.000 - 31.618 ppm 11/21/2024 5:57 AM EDT [facility] GLORIA KRUSEI 0 23.000 - 30.873 ppm 11/21/2024 5:57 AM EDT [facility] GLORIA KRUSEI Not Detected 23.000 - 30.873 ppm 11/21/2024 5:57 AM EDT [facility] CHLAMYDIA TRACHOMATIS 0 23.000 - 31.586 ppm 11/21/2024 5:57 AM EDT [facility] CHLAMYDIA TRACHOMATIS Not Detected 23.000 - 31.586 ppm 11/21/2024 5:57 AM EDT [facility] GARDNERELLA VAGINALIS 0 19.961 - 24.689 ppm 11/21/2024 5:57 AM EDT [facility] GARDNERELLA VAGINALIS Not Detected 19.961 - 24.689 ppm 11/21/2024 5:57 AM EDT [facility] MEGASPHAERA (TYPES 1, 2) 0 19.961 - 24.689 ppm 11/21/2024 5:57 AM EDT [facility] MEGASPHAERA (TYPES 1, 2) Not Detected 19.961 - 24.689 ppm 11/21/2024 5:57 AM EDT [facility] NEISSERIA GONORRHOEAE 0 23.000 - 32.587 ppm 11/21/2024 5:57 AM EDT [facility] NEISSERIA GONORRHOEAE Not Detected 23.000 - 32.587 ppm 11/21/2024 5:57 AM EDT [facility] TRICHOMONAS VAGINALIS 0 23.000 - 31.995 ppm 11/21/2024 5:57 AM EDT [facility] TRICHOMONAS VAGINALIS Not Detected 23.000 - 31.995 ppm 11/21/2024 5:57 AM EDT [facility] MYCOPLASMA GENITALIUM 0 19.961 - 24.689 ppm 11/21/2024 5:57 AM EDT [facility] MYCOPLASMA GENITALIUM Not Detected 19.961 - 24.689 ppm 11/21/2024 5:57 AM EDT [facility] Tissue 11/20/2024 10:5 1 AM EDT 11/21/2024 1:16 AM EDT us Les Martinez DO LAB BLOOD ORDERABLES Final Resul t [facility] [address] [place] [address] documented in this encounter Visit Diagnoses Not on filedocumented in this encounter Additional Health Concerns Active Problems Noted Date Diagnosed Date OB Reminders 10/22/2024 documented as of this encounter Care Teams Office Assistant Relationship Specialty Start Date End Date Amanda Ford NP [address] [place], [place] [id number] PCP - General Family Medicine 01/17/23 documented as of this encounter
--- OUTSIDE RECORDS SUMMARY | 2024-11-30 11:57 | XMS_ITS | Clinical Summary ---
Author Organization [facility] Address [address] [place] [address] Care Team Providers Care Palliative Care Specialist Name Role Phone Amanda Ford TAIL SAWYER Primary Care Provider Allergies Active Allergy Reactions [...] BEDTIME 60 capsule 3 11/07/19 25 Active iron polysaccharides (ProFe) 391.3 (180 Fe) MG capsuleIndications: Other iron deficiency anemia TAKE 1 CAPSULE BY MOUTH TWICE DAILY(MORN ING AND BEFORE BED) 60 capsule 3 03/ 025 Discontinued Active Problems Problem Noted Date Diagnosed Date Anovulation 11/28/2023 Estimated Date of Delivery Comme nts Yes 04/23/2025 Based on Est. Da te of Conception Encounters Date Type Department Care Team Description 11/30/2024 [place] [address] Lisa Campbell LPN 11/20/2024 8:40 [place] [address] Les Martinez DO Well woman exam with routine gynecological exam; Exposure to STD; Second trimester ([facility]); 18 weeks gestation of ([facility]); Need for maternal serum alpha-protein (MSAFP) screening ([facility]); Screening, , for anatomic survey ([facility]); Thyroid disease 11/20/2024 External Result Encounter NOMS External Department Unsolicited Les Martinez, 11/20/2024 Clinisync Result Encounter NOMS External Department Unsolicited Les Martinez, DO 11/20/2024 Bamboo [place] [address] Les Martinez DO 11/05/20[place] [address] Les Martinez DO Other iron deficiency anemia 10/22/2024 11:20 [place] [address] Les Martinez DO 13 weeks gestation of ([facility]); Second trimester ([facility]); Thyroid disease ; H/O gastric sleeve; H/O iron deficiency anemia; resulting from in vitro fertilization in first trimester ([facility]) 10/22/2024 [place] [address] Kerrie Babcock [place] 10/22/2024 Abstract [facility] [address] [place] [address] Kerrie Babcock [place] 10/22/2024 Abstract [facility] [place] [facility] [address] [place] [address] Kerrie Babcock, [place] 10/21/2024 Travel 10/18/2024 Telephone [facility] [address] [place] [address] Les Martinez, DO 10/17/2024 Abstract [facility] [address] [place] [address] Les Martinez, DO 10/10/2024 Clinisync Result Encounter NOMS External Department Unsolicited Les Martinez, DO 09/26/2024 Telephone [facility] [address] [place] [address] Kerrie Babcock, [place] 09/20/2024 2:30 PM EDT Initial [facility] [address] [place] [address] GA: 9w2d 09/20/2024 2:00 PM EDT Ancillary Procedure [facility] [address] [place] [address] Missed menses 09/20/2024 Abstract [facility] [address] [place] [address] Les Martinez, DO 09/12/2024 Telephone [facility] [place] [facility] [address] [place] [address] Ximena Padilla LPN LAB READ from Last 3 Months Immunizations Immunization Administration [...] EDT Ancillary Procedure [facility] [address] [place] [address] 12/19/2024 10:00 AM EDT Routine [facility] [address] [address] [place] [address] Jojo Ames PA [address] [place] [address] 02/20/2025 1:00 PM EST Office Visit [facility] [address] [place] [address] Les Martinez DO [address] [facility] [place] [address] 08/21/2025 9:30 AM EDT Office Visit [facility] [address] [place] [address] Darleen Sinclair MD [address] [place] [address] Health Maintenance Due Date Last Done Comments Influenza Vaccine (#1) 2024 Goals Goal Patient Goal Type Associated Problems Recent Progress Patient-Stated? Author Reminders Care Plan OB Reminders No Open Scheduling, Background Procedures Procedure Name Priority Date/Time Associated Diagnosis Comments RECURRENT VAGINITIS (HTRX) Routine 11/20/2024 10:51 AM EDT AFP, SERUM, OPEN SPINA BIFIDA Routine 11/20/2024 10:37 AM EDT ALL THYROID STIM HORMONE Routine 11/20/2024 10:37 AM EDT POCT URINALYSIS DIPSTICK Routine 11/20/2024 9:12 AM EDT Second trimester ([facility]) POCT URINALYSIS DIPSTICK Routine 10/22/2024 11:41 AM EDT 13 weeks gestation of ([facility]) Second trimester ([facility]) BOX TEST Routine 10/10/2024 11:18 AM EDT POCT URINALYSIS DIPSTICK Routine 09/20/2024 3:08 PM EDT Missed menses POCT , URINE Routine 09/20/2024 3:08 PM EDT Missed menses US OB TRANSVAGINAL Routine 09/20/2024 2: 24 PM EDT Missed menses from Last 3 Months Results * RECURRENT VAGINITIS (HTRX) (11/20/2024 10:51 AM EDT) [facility] ATOPOBIUM VAGINAE 0 19.961 - 24.689 ppm 11/21/2024 5:57 AM EDT [facility] ATOPOBIUM VAGINAE Not Detected 19.961 - 24.689 [...] EDT [facility] NEISSERIA GONORRHOEAE Not Detected 23.000 - 32.587 ppm 11/21/2024 5:57 AM EDT [facility] TRICHOMONAS VAGINALIS 0 23.000 - 31.995 ppm 11/21/2024 5:57 AM EDT [facility] TRICHOMONAS VAGINALIS Not Detected 23.000 - 31.995 ppm 11/21/2024 5:57 AM EDT [facility] MYCOPLASMA GENITALIUM 0 19.961 - 24.689 ppm 11/21/2024 5:57 AM EDT [facility] MYCOPLASMA GENITALIUM Not Detected 19.961 - 24.689 ppm 11/21/2024 5:57 AM EDT [facility] Tissue 11/20/2024 10:5 1 AM EDT 11/21/2024 1:16 AM EDT us Les Juan DO LAB BLOOD ORDERABLES Final Resul t [facility] [address] [address] * AFP, SERUM, OPEN SPINA BIFIDA (11/20/2024 10:37 AM EDT) Pathologist [facility] [place] RESULTS Report . [facility] TEST RESULTS: *Screen Negative* . [facility] GEST. AGE ON COLLECTION DATE 18.0 . weeks [facility] GESTAT. AGE BASED ON Ultrasound . [facility] Comment: 18.0 on 11/20/2024 Recalculations are not recommended when gestational dating by LMP and ultrasound are within 10 days. [age] DARWIN [age] [facility] RACE Other . [facility] WEIGHT 256 . lbs [facility] INSULIN DEP DIABETES No . [facility] MULTIPLE GESTATION No . [facility] AFP VALUE 27.6 . ng/mL [facility] AFP MOM 0.87 . [facility] [place] [address] [place] [address] . [facility] INTERPRETATION Comment . [facility] Comment: Interpretation: Screen Negative This result [...] Customer Services to discuss available options. The [employer] recommends amniocentesis be offered to women age 35 and older. COMMENT: Comment . [facility] Comment: Gisel Gandhi, Ph.D., [facility] Director References: Available Upon Request. Multiples Of Median Cutoffs For AFP Elevations [place] 2.5 Black 2.8 IDD 2.0 Twins 4.5 Abbreviation Definitions IDD - Insulin Dep Diabetes OSBR - Open Spina Bifida Risk For further inquiries contact [facility] at [phone]. This test was developed and its performance characteristics determined by [facility]. It has not been cleared or approved by the Food and Drug Administration. Performed at: [facility] [address] [place], [place] [id number] Public Health Informatician: Lorena Ellis [facility], Phone: [phone] 11/20/2024 10:3 7 AM EDT 11/20/2024 10:49 AM EDT Narrative [facility] - 11/22/2024 1:07 AM EDT N N ULTRASOUND [id number] 0 18 N 1 256 N N N N N White/ us Les Juan DO LAB BLOOD ORDERABLES Final Resul t [facility] * ALL THYROID STIM HORMONE (11/20/2024 10:37 AM EDT) THYROID STIMULATING HORMONE 1.702 0.358 - 3.740 uIU/mL [facility] 11/20/2024 10:3 7 AM EDT 11/20/2024 10:49 AM EDT Narrative [facility] - 11/20/2024 11:26 AM EDT us Les Juan DO CL[facility] Final Result Performing Organization Address City/[facility]/ZIP Co de Phone Number [facility] * (ABNORMAL) POCT urinalysis dipstick manually resulted [...] 11:18 AM EDT) BOX TEST SENT OUT PENDING SALE TO [facility] BOX1 PENDING SALE TO [facility] BOX2 10-10-24 [facility] 10/10/2024 11:1 8 AM EDT 10/10/2024 11:22 AM EDT Narrative [facility] - 10/10/2024 11:23 AM EDT [facility] us Les Juan DO LAB BLOOD ORDERABLES Final Resul t [facility] * (ABNORMAL) POCT , urine [...] II, MD, PHD at 21-Sep-2024 08:26:46 AM [facility] Procedure Note Edel Garcia MD - [...] signed by EDEL GARCIA II, MD, PHD [id number] 08:26:46 AM [facility] us Leschip Monsivaiso DO IMG OB US PROCEDURES Final Resul t from Last 3 Months Additional Health Concerns Active Problems Noted Date Diagnosed Date OB Reminders 10/22/2024 Insurance [employer] MEDICAID [place] Care Teams Palliative Care Specialist Relationship Specialty Start Date End Date Amanda Ford NP [address] [place] [address] [place] [address] PCP - General Family Medicine 01/17/23
--- OUTSIDE RECORDS SUMMARY | 2024-11-30 11:57 | XMS_ITS | Encounter Summary ---
Author Organization [facility] Address [address] [place] [address] Phone Care Team Providers Care Chemical Instrumentation Officer Name Role Phone Unavailable Primary Care Provider Unavailabl e Encounter Details Date Type Department Care Team (Late st Contact Info) Description 05/02/2024 Scanned Document Yelena Castanon Pavilimanisha [address] [address] [place] [address] [address] Department of INFORMATICS DEVELOPER-Behavior[place] [address] Social History Tobacco Use Types Packs/Day Years [...]
--- OUTSIDE RECORDS SUMMARY | 2024-11-30 11:57 | XMS_ITS | Encounter Summary ---
Author Organization [facility] Address [address] [place] [address] Care Team Providers Care Lumber Hacker Name Role Phone Jovaninikkie Amanda Nikole TIN DIPPER Primary Care Provider Encounter Details Date Type Department Care Team (Late Contact Info) Description 09/20/2024 Abstract [facility] [address] [facility] [place] [address] Les Martinez DO [address] [facility] [address] [place], [place] [address] Social History Tobacco Use Types Packs/Day Years [...] AM EDT Ancillary Procedure [facility] [address] [place] [address] 12/19/2024 10:00 AM EDT Routine [facility] [address] [facility] [place] [address] Jjoo Ames PA [address] [facility] [place] [address] 02/20/2025 1:00 PM EST Office Visit [facility] [address] [facility] [place] [address] Les Martinez DO [address] [facility] [address] [place], [place] [address] 08/21/2025 9:30 AM EDT Office Visit [facility] [place] [facility] [address] [place] [address] Darleen Sinclair MD [address] [place] [address] documented as of this encounter Visit Diagnoses Not on filedocumented in this encounter Care Teams Lumber Hacker Relationship Specialty Start Date End Date Amanda Ford NP [address] [facility] [place] [address] PCP - General Family Medicine 01/17/23 documented as of this encounter
--- OUTSIDE RECORDS SUMMARY | 2024-11-30 11:57 | XMS_ITS | Encounter Summary ---
Author Organization [facility] Address [address] [place] [address] Care Team Providers Care Major Assembler Name Role Phone MerylAmanda cervantes Nikole TEST BORER HELPER Primary Care Provider Encounter Details Date Type Department Care Team (Late st Contact Info) Description 03/02/2024 Orders Only [facility] [address]Z [address] [place] [phone] Esperanza AsifClinton, [place] [address] [place] [address] Social History Tobacco Use Types Packs/Day Years [...] Ancillary Procedure [facility] [address] [place] [address] 12/19/2024 10:00 AM EDT Routine [facility] [address] [place] [address] Jojo Ames PA [address] [facility] [address] [place], [place] [address] 02/20/2025 1:00 PM EST Office Visit [facility] [address] [facility] [place] [address] Les Martinez DO [address] [facility] [address] [place], [place] [address] 08/21/2025 9:30 AM EDT Office Visit [facility] [place] [facility] [address] [place] [address] Darleen Sinclair MD [address] [place] [address] documented as of this encounter [...] on filedocumented in this encounter Care Teams Major Assembler Relationship Specialty Start Date End Date Amanda Ford NP [address] [place] [id number] PCP - General Family Medicine 01/17/23 documented as of this encounter
--- OUTSIDE RECORDS SUMMARY | 2024-11-30 11:57 | XMS_ITS | Encounter Summary ---
Author Organization [facility] Address [address] [place] [address] Care Team Providers Care Rn Float Name Role Phone Logan Amanda Nikole METER REPAIRER Primary Care Provider Encounter Details Date Type Department Care Team (Late st Contact Info) Description 11/20/2024 Bamboo flowsheet [facility]NANDEZ [address] [place] [address] Les Martinez DO [address] [place], [facility] Social History Tobacco Use Types Packs/Day Years [...] AM EDT Ancillary Procedure [facility] HERNAN[facility]Z [address] [place] [address] 12/19/2024 10:00 AM EDT Routine [facility] [address] [facility] [address] Jojo Ames PA [address] [facility] [place] [address] 02/20/2025 1:00 PM EST Office Visit [facility] HERNAN[facility]Z [address] [facility] [place] [address] Les Martinez DO [address] [facility] [address] [place], [place] [address] 08/21/2025 9:30 AM EDT Office Visit [facility] [address] [place] [address] Darleen Sinclair MD [address] [place] [address] documented as of this encounter Goals Goal Patient Goal Type Associated Problems Recent Progress Patient-Stated? Author Reminders Care Plan OB Reminders No Open Scheduling, Background documented as of this encounter Visit Diagnoses Not on filedocumented in this encounter Additional Health Concerns Active Problems Noted Date Diagnosed Date OB Reminders 10/22/2024 documented as of this encounter Care Teams Rn Float Relationship Specialty Start Date End Date Amanda Ford NP [address] [place] [address] [place] [address] PCP - General Family Medicine 01/17/23 documented as of this encounter
--- OUTSIDE RECORDS SUMMARY | 2024-11-30 11:57 | XMS_ITS | Clinical Summary ---
Author Organization [facility] Address [address] [place] [address] Phone Care Team Providers Care Swatch Checker Name Role Phone Unavailable Primary Care Provider [...] patient's age to complete this topic Insurance [facility] MEDICAID
--- OUTSIDE RECORDS SUMMARY | 2024-11-30 11:58 | XMS_ITS | Encounter Summary ---
Author Organization [facility] Address [address] [place] [address] Care Team Providers Care Senior Business Broker Name Role Phone JovaniAmanda lundy Nikole HOOK AND EYE MACHINE OPERATOR Primary Care Provider Encounter Details Date Type Department Care Team (Late Contact Info) Description 05/04/2023 Abstract [facility] [address] [place] [address] Lilibeth Green LPN [address] [place] [address] Social History Tobacco Use Types Packs/Day Years [...] AM EDT Ancillary Procedure [facility] [address] [place] [address] 12/19/2024 10:00 AM EDT Routine [facility] HERNA[facility] [address] [facility] [facility] [address] Jojo Ames PA [address] [facility] [place] [address] 02/20/2025 1:00 PM EST Office Visit [facility] HERNAN[facility] [address] [facility] [facility] [place] [address] Les Martinez DO [address] [facility] [place] [address] 08/21/2025 9:30 AM EDT Office Visit [facility] [address] [place] [address] Darleen Sinclair MD [address] [place] [address] documented as of this encounter Visit Diagnoses Not on filedocumented in this encounter Care Teams Senior Business Broker Relationship Specialty Start Date End Date Amanda Ford NP [address] [place] [address] [place] [address] PCP - General Family Medicine 01/17/23 documented as of this encounter
--- OUTSIDE RECORDS SUMMARY | 2024-11-30 11:58 | XMS_ITS | Patient Health Record ---
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) Active confirmed Problem Anxiety state (121059807) Anxiety state, unspecified (F41.1) Active confirmed Problem Long-term current use of drug therapy (385763718) High risk medications (not anticoagulants) long-term use (Z79.899) Active confirmed Problem Bipolar affective disorder, currently manic, mild (317679891) Bipolar disorder, current episode manic without psychotic features, mild (F31.11) Active confirmed Vital Signs Heart Rate 84 /min 10/24/2024 Oximetry 98 % 10/24/2024 Blood pressure diastolic 68 mm Hg 10/24/2024 Height 71 in 10/24/2024 Blood pressure systolic 124 mm Hg 10/24/2024 Weight 218.2 lbs 10/24/2024 BMI 30.43 kg/m2 10/24/2024 Encounters Encounter Location Date Provider Diagnosis [facility] [address] [place] [address] 01/25/2024 [place] [address] [place] [address] 02/24/2024 [place] [address] [place] [address] 05/10/2024 [facility] Bipolar disorder, current episode manic without psychotic features, mild F31.11 and Anxiety state, unspecified F41.1 [place] [address] [place] [address] 05/24/2024 [facility] Bipolar disorder, current episode manic without psychotic features, mild F31.11 [facility] [address] [facility] [place] [address] 01/25/2024 Julieta Jefferson Bipolar disorder, current episode manic without psychotic features, mild F31.11 [facility] [address] [place] [address] 04/25/2024 Julieta Jefferson Bipolar disorder, current episode manic without psychotic features, mild F31.11 and Anxiety state, unspecified F41.1 [facility] [address] [facility] [place] [address] 08/24/2024 Jennifer Hahn Bipolar disorder, current episode manic without psychotic features, mild F31.11 and Anxiety state, unspecified F41.1 [facility] [address] [facility] [place] [address] 09/25/2024 Jennifer Hahn Bipolar disorder, current episode manic without psychotic features, mild F31.11 [facility] [address] [facility] [place] [address] 10/24/2024 Jennifer Hahn Bipolar disorder, current episode [...] increasing protein as appropriate. Discussed referral to buttonhole machine operator if problem persists. . . Continue current [...] - F31.11) cont current treatment transfer to [facility] . . Informed consent obtained: YES, we discussed the diagnosis/diagnoses , the treatment options, treatment(s) recommended vs. no treatment. We discussed risks and benefits of treatment options, treatment recommendations vs. no treatment. . . Discussed lifestyle/diet changes to help improve BMI. Recommend increasing activity, reducing portion sizes, limiting carbohydrates, increasing protein as appropriate. Discussed referral to buttonhole machine operator if problem persists. . . Second generation [...] Insured Coverage Start Date Coverage End Date [facility] [address] [place] [address] [id number] DEL CID GUZMAN Self - patient is the insured 3 [employer] [facility] [address] [place] [address] [id number] DEL CID GUZMAN Self - patient is the insured 3 [facility] EZEKIEL ROSAS [address] [place] [address] [id number] MARIA EUGENIA GUZMAN Self - patient is the insured 1 2 [facility] [employer] -termed 22 [address] [place] [address] [id number] 1 MARIA EUGENIA GUZMAN Self - patient is the insured 1 3 [employer] MEDICAID [employer] after [employer]ter[employer] [address] [place] [address] [id number] MARIA EUGENIA GUZMAN Self - patient is the insured 1 3 Medical (General) History Medical History History ICD Code obesity bipolar hypothyroid Surgical History Surgery Date(Month/Year) cholecystectomy gastric SLEEVE 04/2020
--- OUTSIDE RECORDS SUMMARY | 2024-11-30 11:59 | XMS_ITS | Clinical Summary ---
Author Organization Everlater tem Address [id number] [address] [place] [address] Care Team Providers Care Logistic Specialist Name Role Phone No Pcp, No Pcp Primary Care Provider Unavailabl e Allergies Active Allergy Reactions Criticality Noted Date Comments Nsaids (Non-Steroidal Anti-I nflammatory Drug) 10/26/2024 Medications [id number] c acid ( 19) 29 mg iron- [...] Description 10/26/2024 Orders Only [facility]- Medicine at [facility] [address] [place] [phone] Ref Prov, Not In System 10/26/2024 Abstract Maternal- Medicine at [facility] [address] [place] [address] Latricia Garcia MD from Last [...] Info) Description 12/05/2024 1:00 PM EDT Appointment [facility] [address] [place] [phone] 12/05/2024 2:00 PM EDT Office Visit Maternal- Medicine at [facility] [address] [place] [address] Latricia Garcia MD [address] [facility], [address] [place] [address] Health Maintenance Due Date Last Done Comments [...] ORDERABLES Danna l Result Performing Organization Address City/[facility]/ZIP Co de Phone Number MANUALLY TRANSCRIBED RESULTS * HIV 1&2 AB/AG Screen (P24 AG) (09/26/2024) HIV 1&2 AB/AG non reactive MAN UALLY TRANSCRIBED RESULTS Blood Venous blood / Unknown us Not In System Ref Prov LAB BLOOD ORDERABLES Danna l Result Performing Organization Address City/[facility]/ZIP Co de Phone Number MANUALLY TRANSCRIBED [...] ORDERABLES Danna l Result Performing Organization Address City/[facility] Co de Phone Number MANUALLY TRANSCRIBED RESULTS * Type and screen (09/26/2024) Abo/Rh(D) O Positive MANUALLY TRANSCRIBED RESULTS Antibody Screen negative MANUALLY TRANSCRIBED RESULTS Blood Venous blood / Unknown us Not In System Ref Prov BLOOD BANK TEST ORDERABLE S Final Result Performing Organization Address [facility] Co de Phone Number MANUALLY TRANSCRIBED RESULTS * Hemoglobin A1c (09/26/2024) Hemoglobin A1C 4.8 4.0 - 6.0 % MANUALLY TRANSCRIBED RESULTS Blood Venous blood / Unknown us Scanning Provider External LAB BLOOD ORDERABLES Final Result Performing Organization Address [facility] Co de Phone Number MANUALLY TRANSCRIBED RESULTS * Ultrasound - Office (09/21/2024 2:06 PM EDT) Anatomical Region Laterality Modality AMB Ultrasound us Not In System Ref Prov IMG US ORDERABLES Final R esult from Last 3 Months Insurance [facility] MEDICAID Care Teams Logistic Specialist Relationship Specialty Start Date End Date No Pcp, [place] [address] PCP - General Family Medicine 05/20/20
--- OUTSIDE RECORDS SUMMARY | 2024-11-30 11:59 | XMS_ITS | Encounter Summary ---
Author Organization [facility] Address [address] [place] [address] Care Team Providers Care Wardrobe Coordinator Name Role Phone Logan Amanda Nikole DOCTOR OF PODIATRY Primary Care Provider Encounter Details Date Type Department Care Team (Late st Contact Info) Description 01/19/2023 Clinisync Result Encounter [facility] External Department Unsolicited Basim Martinez, DO [address] [place] [address] Social History Tobacco Use Types Packs/Day Years [...] AM EDT Ancillary Procedure [facility] Ricco HERNANDEZ [facility] [place] [phone] 12/19/2024 10:00 AM EDT Routine [facility] Ricco HERNANDEZ [facility] [place] [address] Jojo Ames PA [address] [facility] [place] [address] 02/20/2025 1:00 PM EST Office Visit GUDELIA HERNANDEZ [address] [place] [phone] Basim Martinez DO [address] [facility] [address] [place], [place] [phone] 08/21/2025 9:30 AM EDT Office Visit [facility] [address] [place] [address] Darleen Sinclair MD [address] [place] [address] documented as of this encounter Procedures Procedure [...] PM EDT Narrative 01/19/2023 3:46 [place] [address] Ultrasound Report Signed Patient: GUZMAN DEL CID MR#: [id number] : 1995 Acct:[id number] Age/Sex: 27 / F ADM Date: 01/19/23 Loc: US Attending Dr: Basim Martinez D.O. Ordering Physician: Basim Martinez D.O. Date of Service: 01/19/23 Procedure(s): US pelvis transvaginal Accession Number(s): [id number] cc: Basim Martinez D.O.; AMANDA FORD [place] [address] Patient Name: GUZMAN DEL CID MRN: [id number] date: 1995 Sex: F Assigned Patient Location: US Current Patient Location: US Accession/Order Number: [id number] Exam Date: 01/19/2023 14:15 Report Date: 01/19/2023 [...] Signed By: 01/19/23 1549 DD/ 1546 TD/TT: Financial Aid Director: Procedure Note Radiology, Radiologist, MD - 01/19/2023 [place] [address] Ultrasound Report Signed Patient: GUZMAN DEL CIDMR#: [id number] : 1995Acct:[id number] Age/Sex: 27 / FADM Date: 01/19/23 Loc: US Attending Dr: Basim Martinez D.O. Ordering Physician: Basim Martinez D.O. Date of Service: 01/19/23 Procedure(s): US pelvis transvaginal Accession Number(s): [id number] cc: Basim Martinez D.O.; AMANDA FORD [place] [address] Patient Name: GUZMAN DEL CID MRN: [id number] date: 1995 Sex: F Assigned Patient Location: US Current Patient Location: US Accession/Order Number: [id number] Exam Date: 01/19/2023 14:15 Report Date: 01/19/2023 [...] M.D. Signed By:01/19/23 1549 DD/ 1546 TD/TT: Financial Aid Director[facility] Final Result * ALL DEHYDROEPIANDROSTERONE (01/19/2023 2:10 PM EDT) DHEA, SERUM 141 31 - 701 ng/dL [facility] Comment: This test was developed and its performance characteristics determined by [facility]. It has not been cleared or approved by the Food and Drug Administration. Performed at: [address] [id number] Police Service Technician: Jon Horton MD, Phone: [phone] 01/19/2023 2:10 PM EDT 01/19/2023 2:12 PM EDT Narrative CLINISYNC - 01/25/2023 6:07 PM EDT [facility] Final Result [facility] * ALL ANTI-MULLERIAN HORMONE (01/19/2023 2:10 PM EDT) Pathologist [facility] ANTI-MULLERIAN HORMONE (AMH) 0.895 . ng/mL [facility] Comment: For assays employing antibodies, the possibility exists for interference by heterophile antibodies in the samples.1 1.Yessenia Mayfield. Interferences in Immunoassays - still a threat. Clin. Chem. 2000; 46: 1977-8883. This test was developed and its performance characteristics determined by [facility]. It has not been cleared or approved by the Food and Drug Administration. Reference Range: Females 26 - 30y: 1.03 - 11.10 Median 4.20 AMH concentrations of >= 1.06 ng/mL is correlated with a better response to ovarian stimulation, produced more retrievable oocytes and higher odds of live according to Gary et al. Fertility and Sterility. 2010: 94:7319-6382. The current AMH test method correlates with [...] exclude an AMH-secreting ovarian tumor. Performed at: [facility] [address] [place] [id number] Police Service Technician: James Pereyra MD, Phone: [phone] 01/19/2023 2:10 PM EDT 01/19/2023 2:12 PM EDT Narrative [facility] - 01/23/2023 8:07 PM EDT Basim Juan DO [facility] Final Result Performing Organization Address [facility]/ZIP Co de Phone Number [facility] * (ABNORMAL) [facility] PROLACTIN (01/19/2023 2:10 PM EDT) PROLACTIN 4.4(A) 4.8 - 23.3 ng/mL [facility] Comment: Performed at: - [facility] [id number] Police Service Technician: Isaac Dietz PhD, Phone: [phone] 01/19/2023 2:10 PM EDT 01/19/2023 2:12 PM EDT Narrative [facility] - 01/20/2023 4:07 AM EDT Basim Juan DO [facility] Final Result [facility] * ALL FOLLICLE STIMULATING HORMONE (01/19/2023 2:10 PM EDT) FSH 8.4 . mIU/mL [facility] Comment: Adult Female: Follicular phase 3.5 - 12.5 Ovulation phase 4.7 - 21.5 Luteal phase 1.7 - 7.7 Postmenopausal 25.8 - 134.8 01/19/2023 2:10 PM EDT 01/19/2023 2:12 PM EDT Narrative [facility] - 01/20/2023 4:07 AM EDT Basim Juan DO [facility] Final Result Performing Organization Address City/[facility] Co de Phone Number [facility] * [...] DO CL[facility] Final Result Performing Organization Address [facility] Co de Phone Number [facility] * ALL DHEA SULFATE (01/19/2023 2:10 PM EDT) DHEA-SULFATE 91.4 84.8 - 378.0 ug/dL [facility] 01/19/2023 2:10 PM EDT 01/19/2023 2:12 PM EDT Narrative CLINISYNC - 01/20/2023 4:07 AM EDT Basim Juan DO [facility] Final Result Performing Organization Address City/[facility] Co de Phone Number CL[facility]ISYNC TB documented in this encounter Visit Diagnoses Not on filedocumented in this encounter Care Teams Wardrobe Coordinator Relationship Specialty Start Date End Date Amanda Ford NP [facility] [place] [address] PCP - General Family Medicine 01/17/23 documented as of this encounter
--- OUTSIDE RECORDS SUMMARY | 2024-11-30 12:03 | XMS_ITS | CCD ---
Author Organization [facility] Care Team Providers Care [employer] Director Name Role Phone Robin Appiah Primary Care Provider [phone] MACKENZIE BRITO Referring Unavailable ROBIN APPIAH Primary Care Unavailable RASHARD OLIVERA Referring Unavailable ROBIN APPIAH Primary Care Unavailable RASHARD OLIVERA Referring Unavailable ROBIN APPIAH Primary Care Unavailable RASHARD OLIVERA Admitting Unavailable RASHARD OLIVERA Attending Unavailable ROBIN APPIAH Primary Care Unavailable ROBIN APPIAH Primary Care Unavailable ROBIN APPIAH Primary Care Physician Amanda Ford Unavailable MD Robin Appiah Primary Care Provider [phone] MELY Ford Attending Provider MELY Ford Primary Care Provider DO Jack Easton Emergency Provider MARYSOL Jett Emergency Provider [phone] MD Lashonda Farhad Admit Provider MD Farhad Gallego Attending Provider [phone] MELY Ford Attending Provider SHARRON Jefferson Attending Provider Petr Lay Unavailable Romeo Santana Unavailable MELY Ford Primary Care Provider DO Romeo Santana Attending Provider [phone] Daxa Ford NPnifer Primary Care Provider Unavailable Rohrbacher SOURCING SPECIALIST, Amanda Primary Care Provider Romeo Santana DO Attending Provider Merylrbacher ORTHOTIST PROSTHETIST, Amanda Agustin Primary Care Provider Unavailable Primary Care Provider Unavailabl e DAVID, SHELLY G Referring Unavailable Unavailable Primary Care Provider Unavailabl e SAÚL ENRIQUEZ Attending Unavailable Rohrbacher ORTHOTIST PROSTHETIST, Amanda A Primary Care Provider DAVID, SHELLY [...] Unavailable Romeo Santana DO Admitting Unavailable Rohrbacher, Maanda Primary Care Unavailable Alan, Narda T Admitting [...] Unavailable JUAN, LES R Attending Unavailable Rohrbacher SOURCING SPECIALIST, Amanda Primary Care Provider Kassidy Arriaza DO Emergency Provider No Pcp, No Pcp Primary Care Provider Unavailabl e Ethan Santanain A Attending Unavailable Amanda Ford Primary Care Unavailable Romeo Santana Admitting Unavailable Amanda Ford Primary Care Unavailable Kassidy Arriaza Admitting Unavailable Kassidy Arriaza Attending Unavailable Romeo Santana Admitting Unavailable Romeo Santana Attending Unavailable Amanda Ford Primary Care Unavailable DARLEEN SINCLAIR Attending Unavailable DARLEEN SINCLAIR Referring Unavailable LES MARTINEZ Attending Unavailable LES MARTINEZ Attending Unavailable LES MARTINEZ Attending Unavailable LES MARTINEZ Attending Unavailable Allergies Allergy Classification Reported Allergen(s) Allergy Type Date of Onset Reaction(s) Facility (20 sources) Non-steroidal anti-inflammato ry agent Drug allergy Unknown [employer] Other (17 sources) Non-steroidal anti-inflammato ry agent; Translations: [NSAIDs] Drug Allergy 3 Unknown [facility] Healthcare (1 source) ALLERGIES NOT ON FILE; Translations: [ALLERGIES NOT ON FILE] Propensity to adverse reactions (disorder) [facility] 3 Repository (2 sources) NSAIDs Propensity to adverse reactions to drug 5 [employer] (1 source) NSAIDs Drug allergy (disorder) 5 [facility] Repository Medications Current Medications Medication Drug Class(es) Dates Sig (Normalized) Sig (Original) acetaminophen 500 mg oral tablet (20 sources) Start: 12-06-2023 take 1 tablet by mouth every eight hours as needed acetaminophen (TYLENOL) 500 mg tablet Take 500 mg by mouth every 8 hours as needed for pain. 12/06/2023 Active Start: 12-06-2023 take 1 tablet by ashley th every six hours as needed for pain [...] bedtime) for sleep, 60 tab(s), Refill(s) 2, [facility], 182, cm, 07/09/19 [...] anxiety, # 60 tab(s), Refills(s) 1, Pharmacy: [facility], 182, cm, 12/06/19 [...] QID, # 60 tab(s), Refills(s) 2, Pharmacy: [facility] Start Date: 10/09/18 Status: Ordered lamoTRIgine 200 mg oral tablet (20 sources) Mood Stabilizer, Anti-epileptic Agent Start: 04-10-2022 Lamotrigine Active MG TABLET April 10, 2022 12:00am Start: 01-30-2020 lamotrigine 20 0 mg Tab 300 mg = 1.5 tab(s), Oral, Daily, # 45 tab(s), Refills(s) 5, Pharmacy: [facility], 182, cm, 12/06/19 12:03:00 EDT, Height/Length Dosing, [...] qPM, # 90 tab(s), Refills(s) 2, Pharmacy: [facility], 182, cm, 12/06/19 [...] 391 mg oral capsule (20 sources) Start: 11-06-2024 take 1 capsule by mouth twice daily at bedtime ProFe 391.3 (180 Fe) MG capsule Indications: Other iron deficiency anemia TAKE 1 CAPSULE BY MOUTH TWICE DAILY IN THE MORNING AND BEFORE BEDTIME 60 capsule 3 11/06/2024 Active Start: 04-23-2024 iron polysacch arides (ProFe) 391.3 (180 Fe) MG capsule Indications: [...] by mouth two times a day. Active [id number]-bayk-adldl acid ( 19) 29 mg iron- 1 mg tablet,chewable (2 sources) yw618-momz-ragyj acid ( 19) 29 mg iron- 1 [...] Start: 03-12-2020 take 2 tablets by mo [facility] at bedtime quetiapine 50 mg oral tablet 100 mg = 2 tab(s), Oral, Bedtime, # 60 tab(s), Refills(s) 5, Pharmacy: [facility], 182, cm, 12/06/19 [...] 1 patch sertraline 25 mg oral tablet (9 sources) Serotonin Reuptake Inhibitor Start: 09-25-2024 take [...] food, # 60 cap(s), Refills(s) 2, Pharmacy: [facility], 182, cm, 12/06/19 [...] Start: 05-07-2020 take 1 tablet by ashley twice daily as needed for muscle spasms [...] D2) 1,250 mcg (50,000 unit) capsule Discontinued 23412 UNIT PO every week October 08, 2019 12:00am August 01, 2021 2:19pm Takes on Tuesday Start: 05-25-2019 Vitamin D2 200 0 intl units oral capsule Refills(s) 0 Start Date: 05/25/19 Status: Ordered Start: 01-12-2019 End: 05-08-2020 take 1 capsule by mouth every week vitamin D (ERGOCALCIFEROL) 11695 units CAPS capsule Indications: Vitamin D deficiency [...] Start: 01-13-2019 take 1 tablet by ashley th once daily SPRINTEC 28 0.25-35 MG-MCG per [...] severe pain 12 5 December 09, 2023 December 20, 2023 10:47am Take [...] Onset: 2 Resolved: 2 Chronic Female infertility (20 sources) Anovulation; Translations: [Female infertility associated with [...] Episodic Immunizations and screening for infectious disease (6 sources) Patient encounter status; Translations: [Encounter for [...] 09-03-2018 Chronic Other and delivery including normal (8 sources) Early stage of ; Translations: [Encounter for supervision of normal , unspecified, unspecified trimester] Onset: 5 09-03-2024 Episodic Other screening for suspected conditions (not mental disorders or infectious disease) (4 sources) Thyroid function tests abnormal; Translations: [Abnormal [...] [13 weeks gestation of ] 10-22-2024 Episodic Residual codes; unclassified (2 sources) Gestation period, 18 weeks; Translations: [18 weeks gestation of ] 11-20-2024 Episodic Skin and subcutaneous tissue infections (20 sources) Abscess; Translations: [Cutaneous abscess, unspecified] 08-01-2021 Episodic Substance-related disorders (4 sources) Marijuana user; Translations: [Marijuana use] Onset: 9 12-05-2018 Thyroid disorders (20 sources) Hypothyroidism; Translations: [Acquired hypothyroidism] Onset: 9 Resolved: 2 12-05-2018 Chronic Thyroid disorders (4 sources) Disorder of thyroid gland; Translations: [Disorder of thyroid, unspecified] 10-22-2024 Episodic Unclassified (2 sources) History of sleeve gastrectomy; Translations: [Status post laparoscopic sleeve gastrectomy] Onset: 1 05-06-2020 Unclassified (5 sources) Patient encounter status; Translations: [Pre-op testing] 09-03-2018 Unclassified (1 source) 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) 08-20-2024 Unclassified (7 sources) OB Reminders Onset: 5 10-22-2024 Past [...] Test Name Value Interpretation Reference Range Facility RECURRENT VAGINITIS (HTRX)on 11-21-2024 ATOPOBIUM VAGINAE 0 [facility] ATOPOBIUM VAGINAE Not detected [facility] BVAB 2,3 (BACTERIAL VAGINOSIS ASSOCIATED BACTERIA 2, 3); MOBILUNCUS SPP 0 [facility] BVAB 2,3 (BACTERIAL VAGINOSIS ASSOCIATED BACTERIA 2, 3); MOBILUNCUS SPP Not detected [facility] GLORIA ALBICANS, PARAPSILOSIS, TROPICALIS 0 [facility] GLORIA ALBICANS, PARAPSILOSIS, TROPICALIS Not detected [facility] GLORIA GLABRATA 0 [facility] GLORIA GLABRATA Not detected [facility] GLORIA KRUSEI 0 [facility] GLORIA KRUSEI Not detected [facility] CHLAMYDIA TRACHOMATIS 0 [facility] CHLAMYDIA TRACHOMATIS Not detected N OMS [facility] GARDNERELLA VAGINALIS 0 [facility] S [facility] GARDNERELLA VAGINALIS Not detected N [facility] MEGASPHAERA (TYPES 1, 2) 0 [facility] MEGASPHAERA (TYPES 1, 2) Not detected [facility] MYCOPLASMA GENITALIUM 0 [facility] MYCOPLASMA GENITALIUM Not detected N [facility] NEISSERIA GONORRHOEAE 0 [facility] NEISSERIA GONORRHOEAE Not detected N [facility] TRICHOMONAS VAGINALIS 0 [facility] TRICHOMONAS VAGINALIS Not detected N [facility] ALL THYROID STIM HORMONEon 0 11-20-2024 TSH Qn 1.702 m[IU]/L [facility] Urinalysis macro (dipstick) panel (U)on 11-20-2024 Bilirubin, UA Negative Negative - 4(70) +++ mg/dL [facility] Blood, UA Negative Negative - 50 Yehuda/mcL [facility] Clarity, UA Clear [facility] Color, UA Yellow [facility] Glucose, UA Negative Negative - 1999(110) ++++ mg/dL [facility] Interpretation and review of laboratory results Abnormal [facility] Ketones, UA Negative Negative - 160(16) ++++ mg/dL [facility] Leukocytes, UA 2+ Negative - 500+++ Kourtney/mcL [facility] Nitrite, UA Negative Negative - Positive [facility] pH, UA 8 5 - 9 [facility] Protein, UA Negative Negative - 1999(20) ++++ mg/dL [facility] Spec Grav, UA 1.01 1 - 1.03 [facility] Urobilinogen, UA 1.0 0.2 - 12 mg/dL [facility] Ultrasound - Officeon 2024 Radiology Study observation (narrative) [facility] Urinalysis macro (dipstick) panel (U)on 10-22-2024 Bilirubin, UA Negative Negative - 4(70) +++ mg/dL [facility] Blood, UA Negative Negative - 50 Yehuda/mcL [facility] Clarity, UA Clear [facility] Color, UA Yellow [facility] Glucose, UA Negative Negative - 1999(110) ++++ mg/dL [facility] Interpretation and review of laboratory results Normal [facility] Ketones, UA Negative Negative - 160(16) ++++ mg/dL [facility] Leukocytes, UA Negative Negative - 500+++ Kourtney/mcL [facility] Nitrite, UA Negative Negative - Positive [facility] pH, UA 7 5 - 9 [facility] Protein, UA Negative Negative - 1999(20) ++++ mg/dL [facility] Spec Grav, UA 1.01 1 - 1.03 [facility] Urobilinogen, UA 1.0 0.2 - 12 mg/dL [facility] Appearance of UrineOrdered B y: Kassidy Arriaza on 10-18-2024 Appearance (U) Clear Normal Clear [facility] Comment on above: Order Comment: Name Collection Type:: Clean-Voided Midstream Performed By: #### U A, CUU #### [facility] [address] Bilirubin Test strip Ql (U)O rdered By: Kassidy Arsalan on 10-18-2024 Bilirubin Ql (U) Negative Negative [facility] Chlamydia/GC Amplificationon 10-18-2024 Chlamydia Trachomotis, AC Negative Normal Negative [facility] Comment on above: Order Comment: SOURC E OF SPECIMEN: Genital Performed By: #### G CCHLAMAMP #### [facility] , #### CUGEN #### [facility] [address] Neisseria Gonorrhoeae, AC Negative Normal Negative [facility] Comment on above: Order Comment: SOURC E OF SPECIMEN: Genital Result Comment: Perf ormed at: =G - [facility] [address] [id number] Tour Agent: Dagmar Love MD, Phone: [phone] PERFORMED BY: [place] [address] PATHOLOGIST HEAVY FORGER HELPER DAMIÁN DOSHI M.D. Performed By: #### G CCHLAMAMP #### [facility] , #### CUGEN #### [address] Color of Urine by AutoOrdere d By: Kassidy Arriaza on 10-18-2024 Color (U) Colorless Normal Yellow [facility] Comment on above: Order Comment: Name Collection Type:: Clean-Voided Midstream Performed By: #### U A, CUU #### [address] Genital Cultureon 10-18-2024 Genital Culture Genital Results Light Normal Urogenital Damián 2 Days No More GC Specimen not tested for Neisseria gonorrheae PERFORMED BY: [place] [address] PATHOLOGIST HEAVY FORGER HELPER DAMIÁN DOSHI M.D. Normal [facility] Comment on above: Performed By: #### G CCHLAMAMP #### [facility] , #### CUGEN #### [place] [address] [place] Glucose [Mass/volume] in Uri ne by Test stripOrdered By: Kassidy Arriaza on 10-18-2024 Glucose Test strip (U) [Mass/Vol] Normal mg/dL Normal [facility] Hemoglobin Test strip Ql (U) Ordered By: Kassidy Arriaza on 10-18-2024 Hemoglobin Ql (U) Negative Negative [facility] Ketones [Presence] in Urine by Test stripOrdered By: Kassidy Arriaza on 10-18-2024 Ketones Ql (U) Trace Normal Negative [facility] Comment on above: Order Comment: Name Collection Type:: Clean-Voided Midstream Performed By: #### U A, CUU #### [place] [address] [place] Leukocyte esterase [Presence ] in Urine by Test stripOrdered By: Kassidy Arriaza on 10-18-2024 Leukocyte esterase Test strip Ql (U) Negative Normal Negative [facility] Comment on above: Order Comment: Name Collection Type:: Clean-Voided Midstream Performed By: #### U ESTRADA Agustin #### [address] Nitrite Test strip Ql (U)Ord ered By: Kassidy Arriaza on 10-18-2024 Nitrite Ql (U) Negative Negative [facility] Protein Test strip (U) [Mass /Vol]Ordered By: Kassidy Arriaza on 10-18-2024 Protein (U) [Mass/Vol] Negative Negative [facility] Specific gravity Test strip (U) [Rel density]Ordered By: Kassidy Arriaza on 10-18-2024 Specific gravity (U) [Rel density] 1.007 1.001-1.030 [facility] US OB <= 14 weeks fetuson US OB <= 14 weeks fetus [facility] [place] [address] [place] [address] Ultrasound Report Signed Patient: Jaz Sanders MR#: [id number] : 1995 Acct:[id number] Age/Sex: 29 / F ADM Date: 10/18/24 Loc: ER Room: Type: [facility] ER Attending Dr: Ordering Provider: Kassidy Arriaza [...] Jr., D.O. 10/18/2024 2:21 PM Dictation Location: [place] [address] Tech: Natalie Haji Transcribed By: MAITE 10/18/24 1421 Dictated By: Sravan Dickinson Jr, DO 10/18/24 1419 Signed By: 10/18/24 1421 Normal [facility] Unlisted Lab Teston 10-19-19 [facility] Urinalysison 10-18-2024 Bilirubin,Urine Negative Normal Negative [facility] Comment on above: Order Comment: Name Collection Type:: Clean-Voided Midstream Performed By: #### U A, CUU #### [place] [address] [place] Glucose Ql (U) Normal Normal Normal [facility] Comment on above: Order Comment: Name Collection Type:: Clean-Voided Midstream Performed By: #### U A, CUU #### [place] [address] [place] Nitrite,Urine Negative Normal Negative [facility] Comment on above: Order Comment: Name Collection Type:: Clean-Voided Midstream Performed By: #### U A, CUU #### [place] [address] [place] Occult Blood,Urine Negative Normal Negative [facility] Comment on above: Order Comment: Name Collection Type:: Clean-Voided Midstream Result Comment: PERF ORMED BY: [place] [address] PATHOLOGIST HEAVY FORGER HELPER DAMIÁN DOSHI M.D. Performed By: #### U A, CUU #### [place] [address] [place] Protein,Urine Negative Normal Negative [facility] Comment on above: Order Comment: Name Collection Type:: Clean-Voided Midstream Performed By: #### U A, CUU #### [place] [id number] [place] Specificy [place],Urine 1.007 Normal 1.001-1.030 [facility] Comment on above: Order Comment: Name Collection Type:: Clean-Voided Midstream Performed By: #### U A, CUU #### [facility] [address] Urobilinogen,Urine Normal Normal Normal [facility] Comment on above: Order Comment: Name Collection Type:: Clean-Voided Midstream Performed By: #### U A, CUU #### [address] Urine Cultureon 10-18-2024 Bacteria identified Cx Nom (U) <9,000 colonies/ml mixed bacterial skin contaminants 2 Days PERFORMED BY: [place] [address] PATHOLOGIST HEAVY FORGER HELPER DAMIÁN DOSHI M.D. Normal [facility] Comment on above: Performed By: #### U A, CUU #### [address] Urobilinogen Test strip (U) [Mass/Vol]Ordered By: Kassidy Arriaza on 10-18-2024 Urobilinogen (U) [Mass/Vol] Normal mg/dL Normal [facility] pH of Urine by Test stripOrd ered By: Kassidy Arriaza on 10-18-2024 pH (U) 7.0 [pH] Normal 5.0-9.0 [facility] Comment on above: Order Comment: Name Collection Type:: Clean-Voided Midstream Performed By: #### U A, CUU #### [address] Unlisted Lab Teston 10-17-19 [facility] BOX TESTon 10-10-2024 BOX TEST SENT OUT [facility] [address] [facility] [address] 10-10-24 [facility] Coding Summaryon 10-02-2024 Coding Summary HTMLBase 64 ZhvslvshBAw1gPr+PGhlYWQ +PJ3CKQMeE33xlIFhsG9iC1 NMTElOSywgQVBQTElOSyIgb cAgJC3zeIFtBJVj IC8+SN5pFNZgUkewkABgk9L 9yBN5J28vat8iSSmheLV1IS BdSdLgrplko6gtpZr5HBpxE mluOyBt VKJkhA68EAS2eU15Oz22qFC faVNyy5qylLa8ArKkLFLyTG U5rLmkYZswq6QnDEQfI52eh FLgt1F5 BNFprCuurFPkGcLfaZW7gO5 jITrqoryou3wcqcsjRwq4kf 00iKIho8S1mLQ7S9TqirK3U GJvbGQg KumpeSUVfH8zvamon8xqzba lYtYbATJyPGr2LZl9JCVdeB irNxHqSU39XNU8UNIhmsKhN 2FsLWFs cJzbBtP1w1K7Ko5XS8SKGzf hU1RCAITOEWaryIF+PC90cj 33U9YyEuswYuh8WGQaGVE5z ZO6oT3t PFKkTYcxl2A6dIM0E1GkxwT jrv3wh4hbQNCaDMsuQ36uuW Nlh1O7XJAutAX3BUGmuHpaI iBzaG93 Oyc+JQBcxDqkh8MaGuytc8p pv0otuFm9ItqbPHRaquSvnW hnLIF2x9HqJi2zJYZqtYO3u MP9cD5q QsNnBqK9NHdnY212RgWnpKW kKdrtX02xV0ZgtQX+PHRyPj l0NCXacShxFI1tI0VxOYEfy mctbGVm hRekRN9bTKOpumnkCGCmnE7 yYIQdZ1t3LoEtVeP7GEtxP7 LoXWCwieaxWc69wH9wYeRbG jB5MHjg K3LdleT7NNPblPZdUEyaCLV 3U24ky5L0OZEsDQCkOTF7yF P8fP2orZegjenhtFZoxJxbk mVydGlj TPsjHVgzW565IWJeyIapBjP vZGluZyBEYXRlOiAgMDYvMT cvMjAyNTwvdGQ+ELAzBPT3y WxlPSAn eKPyKCusLr0aeAqgcBcsJB7 tHMQrcfltRKZzdI7xAYYxlZ WpqSbaDP0jLLCxwvfnx832E iAxMHB0 DABqdAGrE6VvxZ0yDnOsTWG tNEQuB2UivUKsIUytN576SI ckAuS3LHSrffYvO9YpZQAui WduOiB0 d4N9Jf2Ok7LogawtC6IfvAS xCyCnVvkuVMg9T1GbQprbaJ I+SG69JWBeDJ15AZe6TPT2k WxlPSdi KBTbT1WqvQ1lAhItLJOqZMK kOyc+PHRhYmxlIHdpZHRoPS pwRYGxYdHjxLdiEV9pVi7aZ GVyLWNv vXaryQDyAoGeh0xzIAQiZSt gRJ2ymYluX9LqzVI5MZOtz7 l4Xg65L10oU9GswDM+PGNvb SA7gEG3 oK7uBaDfJeG8RMnqZ771OnA enFRmToixn8vxv4kitNq8Np J0QSPqymJsjYbiAWR6b5FfZ l63P57b IHdpZHRoPSIxNSUiIHZhbGl yvh5llP9tHf9+DUUvhFI0jI C6hD2jToQrAsO1MZlaX586K nRvcCIv Fvsnj9gck1ufjSr6NwVpCEX mjiSuxLxzEVD9v3JpEn80Q3 GndWfau3ZbOpj4ew84vBLsb 9Y8zMR6 B1KhZHGzuumclRWfgVxsSL6 qWTVuulfsKKDwfE7eQYInU2 u5MkBzShO0FLxzV6BbpiK7L GJvbGQg YBGycZXOoE2nsgreq7vlqvq eCxKyMVGkOLe6TLs9MJPdgO wxUdXxEPW1KwJ9VFC2gBFlo O5xiZxk avzfkJ2mZet+VEW1hASfrKF XRN1yTsokcSV+XPTqBVY8hU wqGVltOGZvoE2vZRYfE1z9O iAwLjA1 WIrwC4LzllI6MXSdqJGbKAF pdDIHxH2mtertw6alpgqjAd YwIPDrOJq5PWu6LJUbsIugJ iBsZWZ0 LmJ1VQZ1qQAvkZ3hiUdcclk umC2qOcy+XyvxlTkxXMC3PC h4G4QnCnl9SHRukZedUR6oz GFkZGlu As1toUtooZsuAJ8yLLIktoh jt403DqBnz4cjKIZraXGqLA kbFJE7V42ti2W1ZLUnOYCoG NZ9yDP1 gM1inPvksccncNLwfZnwpjV vhPgkKRvzZZcpT019VLLgpA ydGsHiLHr5A7UvRhy5FNGqn PmcKB6m lVJnSXsoCc7btDgxnXxmGF2 qCSPnrrsjj190QzNlg1bnNS VtpXXbROywVDS1O43id1C6N CMwMDAw RLJ6pCU0xZ1xoPbxptvhlUC mdDsgdmVydGljYWwtYWxpZ2 79BIHrmAbrUkUjwAl8O5AhV yg7KMVs tPtaZS3lpTAoKHpvIv6gbEc yuSmvWZ2uZOQuqsrjn445Xr Rqz4chALEdaZEwMRlnQUH4O 35xw6Y8 VRNmVMLgQPJ1eDR8mW5grFg nbjogbGVmdDsgdmVydGljYW zvWMbjW498WIJljYalJnVpd GllbnQg VIohAWe4J4DyZpcssRN+PC9 3HPEyWQ31lZGcjCUgm2wcnP u5QyUaBKMgEQH3vXfrNLlgy 3JkZXIt L79btTAwc9Y2TEUadIpmpQY oZhXefAB1pN3aFLtqhhvcf0 lmwlyzAcoxb0zjar07eE85I 29sIHdp ZHRoPSIzMCUiIHZhbGlnbj0 pvU7zEu5+QUGmePY6pZK4iX 8oCISoOdF8ANfyR094HiHto CIvPjxj m0sfa7brmHp0PfL7UJTcccE hrGdaQCY0b0JiYr57Y32sDL dpZHRoPSIyMCUiIHZhbGlnb p7qeM5j Ii8+HCXczYA6xKD1mL2hVcT iHfH9FDlnO094OcCypLHnFz goI66lQ8DdmMC+YOIgHwm6R CBzdHls CO7oyBXuIOatZu4zLQZ7TbF tOuNfEIwgW0JmJNMamhodbp spaAM2VHGpJFTrlI40Lp5zk DogMTBw rMPRyZ3ielbdc5tepqigXzN wFQVdYIl6CWk9OQJhnMzaRm EqRRC2SgB4AZW6zMOzpY1gs Glnbjog tD4eC0LgTSHhxrdoGa65nM8 xTsNjIdJ5YXzgUrs+TUNDQU 5OLCBIRUFUSEVSIEVMSVpBQ kVUSDwv dGQ+NOJwXOS6rMyxADwfQVU mxK3wAHYkL9t7PyEoVqH0PS opP7MeYYLqxlnyLx50tX2pU iAwLjA1 VXihG7XjxnH5ZFLztLWdMYk wJGM5U21xp8I2JSNqVMSrCI Z8cUB4pV1vaEhmrprpaDCad DsgdmVy pMiiUBciMLxfF217DZAcoUj pObZzRoW7CsH6CKT5O2MlMj u0ZDDzgIuaPC0okATmMPyxC x7ksRqm lLqwMX9eETXydxviMQEabE4 tEXNjpAOelLvvRP9aJZUovs let547JzKcHSC1SESehOByA 0IepF8b OkYsDEKhHSTvU9UdpXHlYNf mO604VOsuIwI4MFYuycPnC0 XpUUAvtQpiMkH0k7M8Lc5tD SBZZWFy czwvdGQ+ENVeKOK3hRteLZc xKPYtcA2yIRBkN4o9JxPzMs Q5ZFcyX9PqYJEfrlkdPo21u Z4nPsKn VeJ4UNkyZ5DeqcM4STUcbLE mFCquYOK8A49bv3E4XZCpDR DdPAL3kSL8lX8npVvyontqs GVmdDsg ixXbrRgsPLhcFRbxQ868QCS vcDsnPkZFTUFMRTwvdGQ+PH SdBPX1gWjuCBqtIBIyuN4lP RAsB6f9 QnVzBrL5AApnV0UqEIYisma dWw53rL0fVoPcFyG9KIavR8 VmjcB8QJKqpFOdBKhyBUA2U 44hu9J6 MLCkZQGoRJN3xJX4lD1vzTe nbjogbGVmdDsgdmVydGljYW gwTQsgY597VRNkbFoqQq3OP F39TI70 R4DwYityeWMahAL+PHRhYmx lIHdpZHRoPScxMDAlJyBzdH uxLM3eMh2sVKTkXILhaAdcq HNlOiBj d7fgJJFrQEyxXS9awZjwD7C cqOC8VTUwp3y3Qs25W51dK9 JvdXA+GGTkzBQ2zAB7kE3eH zAlIiB2 ATngN697FjVztDDyNnphp4s yq1gxwQn2FkQoSUBwouCfjS zsHGJ4s0NwQs82F73cEBtwC HRoPSIy HOCtJXFmrMnuxu5hnW0rUp1 +YJDovRT1rNO3mW7oZrGrXm R1NVsjK288LlFjmIDlQcuqX 81yA6Am dXA+JUUiVsa7IBSssOwiRS5 gqUYhRJvbHs1xEFA0ZfCsUx VgMLltR6NpATShkctruvkhi VG5SRXu JKBjaU36Jo8tyEvvCx4nLVT eGDQ9XOVvcTFvM5YxoI3pJp MwUOUiQULoA2PfzLWuYOmkA 246IGxl OvP2QWJlmcMuU4GyNLXxcYf xMuY2p6P9Vj9KnLqpgPMtJS 0vVmNuSZt7O9DsKkb0JUZog YuxXL4r uJHsLOprWn2lfMekgMmlBD8 pIZPxahlww485FtGkl2vkWJ QtgNWaFSdwOAP4S43sr7E6I CMwMDAw YDK5gHF2gY8fcEddvepeoDU mdDsgdmVydGljYWwtYWxpZ2 20TDGoaXraBeIXMmo5X7KxN au5ZMZh zAfuTI0zaUNoJDglSv3naFu abWriYK1cDGYrgahba940Og Qmg9cfIMZylEMhSVomSTT1M 87xe7W4 UQNyBPFzHDT2rTR5cA9ksZe nbjogbGVmdDsgdmVydGljYW bnATgyF240JOPvsPvsEy3LN zd7R6Ej Jej8TNTjmDtkGV4mhNGnRQf dEc6yaHtthTfxJN4aHYEbtu ype728XqKin0uvJAAkzCRrV GltZXM7 F93up9O4JCYoAGRoYAB4jUP 9fZ0cjAvenetraCBujXciob IzgRxtOGgqEAtgD995NTGnn DsnPlBh eWVyOjwvdGQ+YO22il21I5L kFldaAod8ANRwSTP5sQL9mT 9wCWNdLNhil5R1aKC0V7Fyv iBxjp4i b2x (more content not included)... [facility] Compliance Drug Analysis, Ur LCon 10-02-2024 Summary LC FINAL Invalid Interpretation Code [facility] Comment on above: Result Comment: ===== TOXASSURE [...] test is not intended to distinguish between tyjdg-8-nbutonsezucrgzifctar, the predominant form of THC in most herbal or marijuana-based products, and prpgo-3-zagpqtpkpsfjsjkibsqk. Lamotrigine PRESENT Acetaminophen PRESENT ===== Test Result Flag Units Ref Range Creatinine 45 mg/dL >=20 ===== Declared Medications: Medication list was not provided. ===== For clinical consultation, please call . ===== ToxAssure, ToxAssure FLEX or MAT drug testin -Technical component - [facility] [address]. [phone]. Tour Agent César Bains MD. ToxAssure, ToxAssure FLEX or MAT drug testing: -Technical component - [facility] [address]. [phone] Tour Agent César Bains MD. Performed At: [facility] [address] [place] [address] [id number] Brendon Galan [facility] Ph:[phone] Performed By: #### 1 [id number] ####[facility] (DEFAULT)[address] [place] [address] C Urineon 09-28-2024 C Urine Mixed skin, or urogenital damián. Clinically insignificant Normal [facility] Comment on above: Performed By: #### 6 [id number] ####[facility] (DEFAULT)[address] [place] [address] 52282 HBsAg Screen LCon 09-27-2024 HBsAg Screen LC Negative Invalid Interpretation Code Negative [facility] Comment on above: Result Comment: Perf ormed At: [facility] [id number] [place], [place] [id number] J Luis Gray PhD Ph:[phone] Performed By: #### 1 [id number], 0098758, 0184374, 40451191, [id number], 47380943, [id number], [id number] ####[facility] (DEFAULT)[address] [place] [address] 00784 HIV 4th Gen Screen w Reflex LCon 09-27-2024 HIV Scr 4th Gen LC Non-Reactive Invalid Interpretation Code Non Reactive [facility] Comment on above: Result Comment: HIV- 1/HIV-2 antibodies and HIV-1 p24 antigen were NOT detected. There is no laboratory evidence of HIV infection. HIV Negative Performed At: [address] [id number] J Luis Gray PhD Ph:[phone] Performed By: #### 1 [id number] #### [facility] (DEFAULT) [address] [place] [address] 90696 RPR, Rfx Qn RPR/Confirm TP L Con 09-27-2024 RPR LC Non-Reactive Invalid Interpretation Code Non Reactive [facility] Comment on above: Performed By: #### 1 6904309, 4089717, 5703452, 66126327, 9622348615, 62828092, 9875409059, 52027165 ####[facility] (DEFAULT)[address] [place] [address] 83524 Rubella Antibodies, IgG LCon 09-27-2024 Rubella Antibodies, IgG LC 2.78 index Invalid Interpretation Code Immune >0.99 [facility] Comment on above: Result Comment: Non- immune <0.90 Equivocal 0.90 - 0.99 Immune >0.99 Performed At: [id number] [place], [place] [id number] J Luis Gray PhD Ph:[phone] Performed By: #### 1 2233412, 6328856, 7395646, 71623388, 4139899552, 03831063, 3217343504, 05071832 ####[facility] (DEFAULT)[address] [place] [address] 69452 .Auto Diff 1on 09-26-2024 Auto [place] % 6 % Normal 04-29 [facility] Comment on above: Performed By: #### 1 1624385, 7590287, 9828599, 89482964, 1672790972, 36832722, 8062426562, 61715637 ####[facility] (DEFAULT)[address] [place] [address] 59015 Baso Abs# 0.0 x10 Normal 0.0-0.2 [facility] Comment on above: Performed By: #### 1 4335485, 0963442, 5321703, 57800550, 3627995812, 61922832, 3463248621, 55168166 ####[facility] (DEFAULT)[address] [place] [address] 49848 Basophils/100 WBC (Bld) 0.1 % Low 0.2-2.0 [facility] Comment on above: Performed By: #### 1 7497493, 8673163, 6672171, 76128930, 1045910069, 16748579, 0402240238, 43905928 ####[facility] (DEFAULT)[address] [place] [address] 23017 Eos Abs# 0.2 x10 Normal 0.0-0.4 [facility] Comment on above: Performed By: #### 1 6367793, 2673425, 7408683, 78692494, 6242247277, 86556636, 4352995799, 57136364 ####[facility] (DEFAULT)[address] [place] [address] 44196 Eosinophils/100 WBC (Bld) 2.0 % Normal 0.9-4.0 [facility] Comment on above: Performed By: #### 1 8952206, 2154860, 6538716, 35642604, 0284089493, 29850393, 7897789822, 76491422 ####[facility] (DEFAULT)[address] [place] [address] 60263 Lymph Abs# 2.0 x10 Normal 1.3-2.9 [facility] Comment on above: Performed By: #### 1 2587703, 2468266, 9405747, 31414596, 6986524149, 67061382, 2889969658, 10261556 ####[facility] (DEFAULT)[address] [place] [address] 84915 Lymphocytes/100 WBC (Bld) 26 % Normal 14-48 [facility] Comment on above: Performed By: #### 1 4736298, 4150522, 6261680, 49789969, 0350100144, 97141223, 4877603529, 27550086 ####[facility] (DEFAULT)[address] [place] [address] [place] Abs# 0.5 x10 Normal 0.0-0.8 [facility] Comment on above: Performed By: #### 1 2461790, 5612655, 5524114, 28735557, 4343310060, 59487307, 1163375829, 71577200 ####[facility] (DEFAULT)[address] [place] [address] Neut Abs# 5.1 x10 Normal 1.5-9.2 [facility] Comment on above: Performed By: #### 1 4911594, 2700879, 0167843, 03834835, 5390109291, 27814495, 6372504827, 79083428 ####[facility] (DEFAULT)[address] [place] [address] Neutrophils/100 WBC (Bld) 66 % Normal 44-88 [facility] Comment on above: Performed By: #### 1 3634179, 0902989, 2998510, 99793959, 3073073113, 95320672, 9725919096, 17360287 ####[facility] (DEFAULT)[address] [place] [address] ABORhon 09-26-2024 ABO and Rh group Nom (Bld) Hx Check: Not Found Anti-A: 4+ Anti-B: 0 Anti-D: 2+ DCon: NT A1: 0 B: 2+ ABORh Interp: A POS Invalid Interpretation Code [facility] Comment on above: Performed By: #### 1 3390663, 7392792, 0189473, 99140389, 7495163533, 48316051, 6855656419, 59892751 ####[facility] (DEFAULT)[address] [place] [address] ABSC Gelon 09-26-2024 ABSC Gel Negative Normal [facility] Comment on above: Performed By: #### 1 1097026, 2345288, 5506378, 24294548, 9401074960, 27903939, 0450751294, 54042761 ####[facility] (DEFAULT)[address] [place] [address] 08828 CBC w/ Auto Diffon Erythrocyte distribution width (RBC) [Ratio] 13.2 % Normal 11.5-15.0 [facility] Comment on above: Performed By: #### 1 2950772, 0974052, 1358934, 15622314, 9768085789, 66083401, 2838533209, 39382326 #### [facility] (DEFAULT) [address] [place] [address] Hematocrit (Bld) [Volume fraction] 39.9 % Normal 33.7-40.4 [facility] Comment on above: Performed By: #### 1 1802008, 0783565, 6647471, 54512038, 8952779901, 65560640, 4543847828, 98362326 #### [facility] (DEFAULT) [address] [place] [address] Hemoglobin (Bld) [Mass/Vol] 13.9 g/dL Normal 11.3-15.9 [facility] Comment on above: Performed By: #### 1 2257895, 9691248, 3465196, 40508151, 8636138905, 35210124, 8592249070, 44382389 #### [facility] (DEFAULT) [address] [place] [address] 9[address]30 Man Diff? Auto Invalid Interpretation Code [facility] Comment on above: Performed By: #### 1 6668282, 2285508, 1951678, 73638756, 4299636754, 35170056, 4306328021, 73469958 #### [facility] (DEFAULT) [address] [place] [address] 34357 MCH (RBC) [Entitic mass] 29 pg Normal 24-34 [facility] Comment on above: Performed By: #### 1 3250217, 7862085, 0529285, 80091012, 8199439087, 94289219, 9000667750, 03704476 #### [facility] (DEFAULT) [address] [place] [address] MCHC (RBC) [Mass/Vol] 35 g/dL Normal 26-37 [facility] Comment on above: Performed By: #### 1 3700980, 1482161, 5418023, 65220011, 7296231630, 41513737, 5198749059, 76998594 #### [facility] (DEFAULT) [address] [place] [address] MCV (RBC) [Entitic vol] 84 fL Normal 81-100 [facility] Comment on above: Performed By: #### 1 2082595, 8757730, 1574649, 47112128, 7784099759, 83618485, 1557352706, 64939165 #### [facility] (DEFAULT) [address] [place] [address] Platelet 210 x10 Normal 138-427 [facility] Comment on above: Performed By: #### 1 9078756, 0533121, 6273871, 14661378, 6028436959, 77448495, 0803422557, 92695319 #### [facility] (DEFAULT) [address] [place] [address] Platelet mean volume (Bld) [Entitic vol] 6.3 fL Normal 6.3-10.2 [facility] Comment on above: Performed By: #### 1 2880847, 6679551, 4669003, 99838246, 7410876874, 12062629, 9674207154, 77816277 #### [facility] (DEFAULT) [address] [place] [address] RBC 4.76 x10 Normal 3.70-5.30 [facility] Comment on above: Performed By: #### 1 2392973, 4388183, 9303851, 24186473, 8551555662, 61122058, 3198035450, 57613501 #### [facility] (DEFAULT) [address] [place] [address] WBC 7.8 x10 Normal 3.5-10.5 [facility] Comment on above: Performed By: #### 1 5049751, 2898461, 2847590, 58543122, 2988286597, 18580410, 6586358535, 09803184 #### [facility] (DEFAULT) [address] [place] [address] HBV surface Ag IA Qlon 09-26 Hepatitis B Surface Antigen Negative [facility] HIV 1+2 Ab+HIV1 p24 Ag IA Ql on 09-26-2024 HIV 1&2 AB/AG Non-Reactive [facility] HgbA1c Standardon 09-26-2024 .Hb 13.1 Invalid Interpretation Code [facility] Comment on above: Performed By: #### 1 0343896, 5343269, 3883447, 78881845, 8443619509, 12184336, 6458409593, 19901136 ####[facility] (DEFAULT)[address] [place] [address] .Hgb A1c 0.38 g/dL Invalid Interpretation Code [facility] Comment on above: Performed By: #### 1 6618331, 2944733, 7294142, 89625976, 2058182773, 94654648, 2670500341, 52317701 ####[facility] (DEFAULT)[address] [place] [address] Glucose [Mass/Vol] 91 mg/dL Invalid Interpretation Code [facility] Comment on above: Performed By: #### 1 4211264, 8175837, 2314881, 59825628, 3526746821, 57716175, 6971518159, 45076437 ####[facility] (DEFAULT)[address] [place] [address] HbA1c (Bld) [Mass fraction] 4.8 % 4.0 - 6.0 % [facility] Comment on above: Performed By: #### 1 4804749, 7976013, 1549189, 77265252, 1402801243, 03907398, 0253818048, 48474040 ####[facility] (DEFAULT)[address] [place] [address] No Panel Informationon 09-26 [facility] Provider Orderson 09-26-2024 Provider Orders [id number] GTIFF Normal [facility] Rubella IGG immune statuson 09-26-2024 Rubella immune IgG 2.78 [facility] T. pallidum IgG+IgM IA Ql (S )on 09-26-2024 Syphilis Non-Reactive [facility] Type and screenon 09-26-2024 Abo/Rh(D) Positive [facility] Ultrasound - Officeon 2024 [facility] HCG ( test) Ql (U)o n 09-20-2024 Interpretation and review of laboratory results Abnormal [facility] Preg Test, Ur Positive Negative [facility] US OB TRANSVAGINALon 025 US OB TRANSVAGINAL [...] II, MD, PHD at 21-Sep-2024 08:26:46 AM [facility] Normal Not Available Comment on above: Order Comment: US OB TRANSVAGINAL No LMP recorded. Urinalysis macro (dipstick) panel (U)on 09-20-2024 Bilirubin, UA Negative Negative - 4(70) +++ mg/dL [facility] Blood, UA Negative Negative - 50 Yehuda/mcL [facility] Clarity, UA Clear [facility] Color, UA Yellow [facility] Glucose, UA Negative Negative - 1999(110) ++++ mg/dL [facility] Interpretation and review of laboratory results Normal [facility] Ketones, UA Negative Negative - 160(16) ++++ mg/dL [facility] Leukocytes, UA Trace Negative - 500+++ Kourtney/mcL [facility] Nitrite, UA Negative Negative - Positive [facility] pH, UA 6.5 5 - 9 [facility] Protein, UA Negative Negative - 1999(20) ++++ mg/dL [facility] Spec Grav, UA 1.025 1 - 1.03 [facility] Urobilinogen, UA 0.2 0.2 - 12 mg/dL [facility] CNNURSEon 09-03-2024 CNNURSE Nurse Visit (REIAV) JAZ SANDERS ([id number]) 1995 F Date Time Provider Department 09/03/24 10:40 AM US TECH [facility] REJ REIAV During your visit today, we recorded the following information about you: Charisse Weaver APRN.[facility] REGISTERED NURSE NICU 09/03/2024 5:42 PM Signed Jaz Sanders here [...] 2024 5:39 PM Referring Provider: SHELLY HERNANDEZ [[id number]] Allergies As of Date: 09/03/2024 (Not on File) Date Reviewed: 08/20/2024 Reviewed by: Shelly Hernandez APRN.CNP - Fully Assessed Visit Diagnosis:Early stage of (HCC) [Z34.90] Order(s):OBSTETRIC ULTRASOUND I [[id number]] Order #: [id number]. #:[id number] WPOINTQty: 1 Prescriptions as of 09/03/2024 - [...] yolk sac and pole is present. - [place] rump length measurement is consistent with the [...] Read By: Bradford Doss M.D. MATERNAL MEDICINE [facility] Radiology Study observation (narrative) [facility] CNNURSEon 08-28-2024 CNNURSE Nurse Visit (REIBD) JAZ SANDERS ([id number]) 1995 F Date Time Provider Department 08/28/24 11:10 AM TECH 2 [facility] BEAC REIBD During your visit today, we recorded the following information about you: Shelly Hernandez, SOURCING SPECIALIST.[facility]EL REGISTERED NURSE NICU 08/30/2024 4:36 PM Signed Jaz Maria Eugenia is here today for an early scan [...] scan next week as scheduled Shelly Hernandez APRN.[facility]AVEL REGISTERED NURSE NICU Mikey Torres MD 08/30/2024 4:36 PM Signed Viable ratliff IUP Size equal Date. Plan: patient to follow up with her ob for care. Stacy Kahn MD Referring Provider: SHELLY HERNANDEZ [[id number]] Allergies As of Date: 08/28/2024 (Not on File) Date Reviewed: 08/20/2024 Reviewed by: Shelly Hernandez APRN.[facility]EL REGISTERED NURSE NICU - Fully Assessed Visit Diagnosis: resulting from assisted reproductive technology in first trimester ([facility]) [O09.811] Order(s):OBSTETRIC ULTRASOUND [facility] [[id number]] Order #: [id number]. #:[id number] WPOINTQty: 1 Prescriptions as of 08/30/2024 - [...] yolk sac and embryo is present. - [place] rump length measurement is consistent with the [...] Performed By: Arelis Chavez RDMS Read By: Mikey Torres M.D. MATERNAL MEDICINE [facility] Radiology Study observation (narrative) [facility] Xavier 08-24-2024 CNPN Telephone (REIBD) JAZ SANDERS ([id number]) 1995 F Date Time Provider Department 08/24/24 SHELLY HERNANDEZ During your visit today, we recorded the following information about you: Charisse Ding 08/24/2024 11:52 AM Signed Pt would like a call back Marianna Ward RN 08/24/2024 1:58 PM Signed See 08/23/24 LIBBY Ward RN August 24, 2024 1:58 PM Allergies As of Date: 08/24/2024 (Not on File) Date Reviewed: 08/20/2024 Reviewed by: Shelly Hernandez, SOURCING SPECIALIST.TRAVEL REGISTERED NURSE NICU - Fully Assessed Reason for Visit: Patient Question [1477] Prescriptions as of 08/24/2024 - buPROPion SR [...] Encounter Status:Closed by MARIANNA WARD on 08/24/24 [facility] 08-23-2024 MIL Telephone (REIBD) JAZ SANDERS ([id number]) 1995 F Date Time Provider Department 08/23/24 SHELLY HERNANDEZ During your visit today, we recorded the following information about you: Angella Mccarthy 08/23/2024 10:39 AM Signed Name: Jaz Maria Eugenia called today. : 1995 (home) [phone] (cell) Reason for call: pt called today informing the nurse she has been experiencing pain of level 4 from 1-10. Pt has been experiencing pain for 2 day. 5 weeks today. The patients preferred pharmacy has been captured for this encounter? [facility] Shelly Hernandez APRN.[facility] 08/24/2024 5:58 PM Signed spoke with [...] slot. Call to patient needed: no [facility], Lana 08/25/2024 8:37 AM Signed Pt is scheduled on 09/03/2024. Shelly Hernandez APRN.CNP 08/27/2024 11:51 AM Signed Addended by: SHELLY HERNANDEZ on: 08/27/2024 11:51 AM Modules accepted: Orders Allergies As of Date: 08/23/2024 (Not on File) Date Reviewed: 08/20/2024 Reviewed by: Shelly Hernandez APRN.CNP - Fully Assessed Reason for Visit: Pain [78] Primary Visit Diagnosis:Early stage of (HCC) [Z34.90] Order(s):OBSTETRIC ULTRASOUND WHI [[id number]] Order #: [id number]: 1 FUTURE Prescriptions as of 08/27/2024 - [...] Encounter Status:Closed by SHELLY HERNANDEZ on 08/24/24 [facility] Coding Summaryon 08-22-2024 Coding Summary HTMLBase 64 TpzlbdrzBXg8pFe+PGhlYWQ +OD4ZIEDeR96xzVKayH8aJ0 NMTElOSywgQVBQTElOSyIgb oTnJO2gzJUlSZSs IC8+WN8bCEYoZgvvaRAuq4E 0qPS5E00uzl6qCQjoyUG4OS JaJlWfahulu6rmaMq5TUouS mluOyBt IPSmeR52QRR9nE29Hy94yOW uzRNig6dwjCh0PbMtWCFcRU D6dMxdUQqrt2YxMLMbF59wm AYdl6U7 MSVtuFsodYTyEsElpAI9zF9 dMWsspahzp4dwqbvnSkb4sd 47vGKou1Q4uOI3U5DhvsK1O GJvbGQg RynaxSFOiX5pzjvfw9umiij pDsNcXWKfRYh1RMq3PKCvxM gsKvLkHD77YWP6JBMjzoLtI 2FsLWFs aVvtRyX6a6Z0Dq7UZ9OGVrp tX7XVQUOPPXxzrNK+PC90cj 26A6MjNqbtVdf9LMHwOUG2g XN7rH5b YUYbNXqqw9M5dCJ6B9GkjuT sgg2hn8rgTUYzGQmwX32dmK Dtt5J3CDAtnXD9UEIyvGleY iBzaG93 Oyc+HAMjqEwuk4IgUlxwh3b am8ftuFw4MpskCIKydvZsvT ibGXB3n8SqHw6iFCHnpUB7q PB3wD8b GpUeUnU9QNxwJ955PgEbeUR oGrxsX04iD8WwgTE+PHRyPj x1RJZmgOnqFW8tY6AcGNPem mctbGVm xIswKH1qBTHjaqmtSAWzrE1 pUHDaI6h8PxWbTjM9FEyeO5 LkVIWxrugrNk01vG8kHwLwN jL1WNhf L8GeugN6ZAXgbIJlGHpxRVX 9W53jl6V8UIImJWFnPXI0vO I9cG3mhSdlpiikpOActXabr mVydGlj TXajIUcfO262ZRHqoGjkXzB vZGluZyBEYXRlOiAgMDUvMD cvMjAyNTwvdGQ+IGFvSMS8g WxlPSAn vOWhYIxeQk6veUggoWlvHP9 wSJVacnleCSOcrK1qCZQxyR PinWgoBI6gHSAtebqtu729P iAxMHB0 NUOvmZOsC3IrvZ9zPfVzCUS oAYZqX0PdpUQrQAfyL193BP leJuT1JNKvzvUaX9OiEGLtm WduOiB0 q2I1Iz2Gr6VuaqupS0XjiZL tEsHgGygdAAe4T4GyNokbeR I+JO98KFBmFD82GTm0UCS0s WxlPSdi PSKmH6MciX1qTwDmWQSqFRI kOyc+PHRhYmxlIHdpZHRoPS erNMLiYcAgmFyjYA9pCe3sC GVyLWNv oEvynFXcZkAly6fiFROdNSz vTU6bhJbuH8IwdPZ1IBTff2 w2Ge34J51rM5ZkbQW+PGNvb BL5xAY7 nO1oAxNkApU0XNvqI755MqI zuPTeXnrlr5dyx8rkjTi3Mx Z0YAHkgaSqmYkaWUY0c4GzB x03P11l IHdpZHRoPSIxNSUiIHZhbGl kzx0rcZ1cAc0+RNBpkJT9qC D3xT0uTeQmVpL8UCljW945F nRvcCIv Qeqvq8acc5rniCi2RyTnXYD ktyUutUapXOZ2y7AdXh36P3 LdjIdyw5XgTbs1ca04jVCoi 8S2kNS2 I6OjLDYbyzbjrQAvwSanRQ5 bPQVmilbtIQPgaC4cCFBaK4 j1SgVfZhF9IOvnE1VcnxC7B GJvbGQg OIRnlNDFpY1tqgdhj4xsaix kFfTuZOJjURc1EXt1MZXxjS orVrExEND2TvV3EVS4tTAav X9liMcf jkqdpN4dLfc+VLX5kPOqwUB MMP3bTrxreWF+IVAeGWI9bE kiQElnMEMviB0sBTRnT8y1W iAwLjA1 UUjoZ6YemtD5UYAdsMSyNXQ xxTYReC3pkfrua7iemwizYg DnGNSnKSb0TZa4LJRgeZeoV iBsZWZ0 MiM9NRK6pBUgrG1bfEgngbs inC2yBlf+LqjltNosXHM5NC l0X1FvTqr3YNJxcBxxRI1lc GFkZGlu Jy1fyBjteLueYC8kAOXzqvz or857DqSdi3lnIAYinWQhQW gnWAF2G67hd8E1JINyYNEyE JT8rUH6 oG3jzHwdtuonxGPqpFgbxnO enNayYKxuWLedX601NTBlzI jrOkOjKUd4S4ElNzw8FZAyc NogBC4s nVAsMMwsJj6dnEtunFecWU0 nPCKhqfttg263MhXkl5bzNA GitEArJKwwXDZ5I44iw7W6O CMwMDAw IAS3cUP0jU9qnEhcpjeqzEN mdDsgdmVydGljYWwtYWxpZ2 77YRXtyJwmDlTsxGd1E4TfC dg4HDLj qVeuVZ0kvUNzEFkdPy2tpQx wbQegYM1sTNQbpcfwb640Bx Wdh1vcWBKqcXEgWBwnLEB6F 40oi6C8 QPIpIUNxTBQ2tFG5iW1bcDt nbjogbGVmdDsgdmVydGljYW tdYBasV998VWYydWidOhVcx GllbnQg ZMipREz3T9UmEpixmXP+PC9 3LTZgVZ06fRVzzKVmk7xkuN h5TwQpYUNqJPH7tBntECrow 3JkZXIt F35siIMje0J7YAWwqUgkbZF hXrAscLQ3iW1jZYmxdoetf8 ypiktcVlcbt5doya76hO64L 29sIHdp ZHRoPSIzMCUiIHZhbGlnbj0 aoM1jXr7+KZDdgEB6vUK7pN 1eOWOjFlK2ERnnJ723YcSei CIvPjxj t9ijw4tzgLu2IlC3FZIpbsT fzIzsAZU8u1UqZi31F72cTV dpZHRoPSIyMCUiIHZhbGlnb t2ozE7c Ii8+FXMckSC5rSH3cB8xFjJ yLyD3ZJieV873DmAtiPBfQh flP04nR6HuwFE+YQZbCqy0E CBzdHls FZ1avWCwZNtcGj5nUYJ8JgP dReObJSavU3KoUDDwavjqlt lvtNG4SILaQDXvcI69Yq4rg DogMTBw yCVQmS2poytvi7ciezyvKdM lUPHqTQc7FLh2TEOtyUglQl OxWYZ3LnS2JUQ8cNSxqI4wa Glnbjog kO1qX6VrZQRorpyhQw49vM9 tZcRxEnZ2KTerLse+TUNDQU 5OLCBIRUFUSEVSIEVMSVpBQ kVUSDwv dGQ+PQNsDDA1bJrzMOlyUFD wbH4wNTGgG9y1OqYpAwV4GQ kfP1LvTAEqslxkVn07cM8qS iAwLjA1 MAxcO1VmnbC4WNIylOFzLZx nFBV3F93wd9T2NQQeUXUwAW F9mGH2hX6qjHjinxkmqJClc DsgdmVy cUidDJgpAIuuN416TSGtxGy oFcAdPpW7JrP5GMB8U8UjDk r7TQJjqGjyJW3ivTEqDPeiB t0zzFxp yLamEW7cWFRhlonhQYGieZ5 xCMGtdXPxcZgxFR4eDUUsph zkc447MtLjPFI7FCQxjIYqD 9IwdO5i IkOmGTOqVPNfI2MkuXGpFDi cN529RRdkGqZ2YJIobvNsW5 ZqZCRdzAwsLeM4k1K7Li8vZ SBZZWFy czwvdGQ+FBQwGMK0nTzoMWo mJVBzfJ5kXMHxG4h4NuHqSs G3TCfqR3FmHCXkksrgKk67g S5pPbUf KlF2DMhzT6UnmkN1ANXziVE qSUapXWJ1B33ai9V5UDXqAC SaDPZ7aMG1nU0viRupucpzh GVmdDsg ytMkvSntNCegTDeqG818JIY vcDsnPkZFTUFMRTwvdGQ+PH ByBEQ1rRpgCVqqHJMldB6fB QYkW4v1 KpGxRjX1OBlxJ2PqZHFrvsd eEb95kD9uNjNxYpM9VVbpG6 JzkuJ6EURhfLYoBWvvPIY7R 52pr4I1 SYPsRINkOMD8iBO5pY6diCu nbjogbGVmdDsgdmVydGljYW luFIbjL350QDIweYleLe5OR G06LX28 R5YsOivdtLRwrJK+PHRhYmx lIHdpZHRoPScxMDAlJyBzdH wwFB5vEo5zHPPdHRGpkPnea HNlOiBj h6glSOOmHBhfNA2biPltH0K ebOS4IFYon2q7Df66D90yP5 JvdXA+JVJbtRX7lUW9nH5dW zAlIiB2 QJqzS018ZsXtjWCvTuodl9u ej9ojcSm0JsDzGTUwuwRepR moIUO9i9OcFx37Y32qZWcsN HRoPSIy PGQeYOUcrQjzhl4tsL8dPh7 +RINmfNG1tEG4gY2mAqGjBt R5DIitV080DnSqhNNrOidiF 12oI6Qn dXA+WPCpUgc1PDPzlXzeRL9 ucDXoFSjjBz4tKRS9JoNuIn ImXMsjZ8PzOBLpfggfkocqy TV5CSVd RSUegR01Ov3xtXfnZe8dWRJ lBUO3AUCskCOqV3QjcD2eRu WoEGGmWHYoF8NrbWRvSVifB 246IGxl TlC7SKUnljXhQ3MmWFAuoDg sInO8k9U0Mn8HgIyzpCIrST 5lGvFnNGa6E3KfDuk1LPDcf UqhBC1c wABqPNppKb9rlXbnbQcaPK2 aWNMddtmem451SqWbi4xyKK EpdDBlXTebMKW7D15pd6X2F CMwMDAw NPQ1eMU5oL3zqUkkfxlkhIB mdDsgdmVydGljYWwtYWxpZ2 64IVNdmVuoCiYWPqx2R5RkP bl5LHXm fEdeOJ7jeDKmRTcqNy4ugUu ooGkjKH5kNDDqhiyvx998Is Zoi1opPINprUIbWObiXWA0K 27kd9B1 PLCzHLEkLOA5zAS4lJ3uwIo nbjogbGVmdDsgdmVydGljYW krOPviA121PRKopVjxOf3NN ip4B9Nz Xlk3YXVgrPdtVX5ewWAxZDl xOs9eyCgyzLbmWX0eLCUxuj rli830UvLsa2wiTXXmlLPdV GltZXM7 T87vv4E4SKEdFMTuNWB1qFQ 8eU9ieAthiptehXJlhIrdmt JpqEimTNsyNGszE514KJAwj DsnPlBh eWVyOjwvdGQ+DE24dx87Y1P yJgjhKsy2QQRsDYH6gXU9cU 8dWYFtIVlec2Q8wFQ2A7Sgl rObhk9a b2x (more content not included)... [facility] Coding Summaryon 08-20-2024 Coding Summary HTMLBase 64 FippvxngUCu2bBb+PGhlYWQ +BY3UFTGwW82wbQCfiF0fG0 NMTElOSywgQVBQTElOSyIgb tWuIE1ylGCqPKWw IC8+GO1cXSKgFetljSXdj2Q 5bNT1D46def0uZTtamML5RS ImFhYjgexfp2pgaNm0LHbkS mluOyBt KJCxvE59HVY8fQ42Nf86fWU iiATkq9nymDr8VvMcLDLyJG M9yNlcTWfdv6EyJASnS53bu ZUqr2Y8 BGNtzHigzDLjGuLizTA1yF1 eQJehztvor4qylbnfEmo2gq 46kQOyz9G9hOS8Y1NbshW4V GJvbGQg GaetwJUKtW4vlckqa0yvzct jDwPrPGVmACw3UFc4RBKedH vsUnAqDK53BAG3DHVjwgGgB 2FsLWFs kVfxHsP2r2Z5Vf4HN3MCMzk eK7PBNQDRHBsqzHE+PC90cj 06E7ZvCtcmXbi5JEXsSTA7k WD9kF6j JWGmTSlmz4X1vET8B2AsvyG czj4hc1skUVVkFHqzG02yuS Mrf6L1ISDgmFO4RJVnmTxcN iBzaG93 Oyc+WPUfhXdso3HdJuovh8x fn9kfuEn0ZrjeSRGnfjIxaE plMFY1p6CrOv6mSVVoqUD4m QV3lJ9q OuEhTqS9KNdzB543YcHzfFG fBdoeG43iD6SzwJJ+PHRyPj m7CWTviIzvTH0oX9LxDJNtt mctbGVm iImkUH4fLSNxjfeuAKNbsW2 vHWAqO0t2QyMoWnA7YTwlB2 GfQNRuctcfLe23gR1sDrYsT dE7DFat U1XlwxK5KKYnrUFbQUhhFXT 2C32mk2R2DEUxJDLoJNT2yB F5zA4ziHubbgmggRUirCmuj mVydGlj FYxrIUztC114NBNdwLhkNxO vZGluZyBEYXRlOiAgMDUvMD UvMjAyNTwvdGQ+FNUhGSY3x WxlPSAn gGHxMWnkQb9ygYttcZlrXA8 iUGNzrazrOXQnpJ2aGAKweP VjaZhaFA6kJWWzgdcbd376F iAxMHB0 SJMgtMMbW3VwmI0rVzJoFER zIPObK9YteECvXDapL760KF bqRrV8QIXrwgHnH1UrHOWkg WduOiB0 o8Y9Mi5Zh6OnjhoyO6YpwXX zKhMvChcnWSh2L6HxUreigX I+DA18JHBgCD34KLk9DSK3p WxlPSdi VWGrI8DdoU9jTqKoUKMnTWT kOyc+PHRhYmxlIHdpZHRoPS dmEVAmEmLstVjxXR9oWe0tT GVyLWNv sJelyBJeIqVok8kwQBAnJUf pMP5xkQljA8YuiKO8PKZvz4 u8Cj83S35aT3PgrSR+PGNvb WN6tDS3 aE5nHcAzYrU9IMsnT938SaC icMDoEjpev3dug2ssbNq1Bu P5XLHfvcIxxBytCWK4c7CbY c99T38z IHdpZHRoPSIxNSUiIHZhbGl ztd3sjW7kPj4+LGEdhQU7uL T3vU0eQyZzRvI5RIrtQ031D nRvcCIv Fchbh9bor5atkDd7CvItNVA ysuItyDpoIBV2p4PrAh74E6 RlqWazc6IfZyu6cz15bJTdz 0J4pCD2 V2WxILFcvaeahVEtnKouXN9 jKJNzxgtgVSMkgS6qJIUlC2 s3BoKpCqS1SFilD9GuyaE8N GJvbGQg ISUafHVIdA7kuraeu0aizrg fZuSqOFClBHk2ZJu5KIEreS mmUeIfXBK6ApW3ZSS3nKWal C1vbZkg lbfjrA4tHkt+YMT7yRYklPI NWN6xOiwcoNO+NALlUXA2yW pfPGixQKEjfZ0qHCSlT7x7R iAwLjA1 RNklH0ZbwnZ4ESNtgYRwIFY rrSGWjQ8yqnlkn2tguqeeSq CyPQWkVMp2MRb7HIPfrVbtJ iBsZWZ0 PoU3BXA4eUMrpH9jpLdbsln itU5nIdq+FtvitBznVRM3VU c2D7BqWrb7TKNjcZipHV0tq GFkZGlu Am8yoFkdpPvyNT8sCRGcark an346VsOgh1jrCCZwhMDrEX vmSZH3Q98pk7W9SLFrNZXoA PX5vXG0 bH1btOqihyqqbIWsrIyyzcZ csDhpGLrdZWomT090XARqaY esRdJcYPq7L2FoJca7ANIae RciTJ8m yOFySMfdHh5upHlmzUvdMZ7 hSKJbvyfqa271ZwTcp0kzSN ZzuQRmOTqbDQA4C27dh9C1M CMwMDAw DRN4bGM7oD7anLfslaodfVG mdDsgdmVydGljYWwtYWxpZ2 48ZWNgpQbeZnZnjDo8C6TbL fw1XBHa xNlxKS6ksVCwSFekHl4qjHn jnJfvSX2eCPZukzkcd150Lw Zxo3irLXOerUGaOBbtYHS3A 38ka9R9 WAQiLESdRNM9vHU5uT0ovYe nbjogbGVmdDsgdmVydGljYW zeISioQ228CORrbOdkCeKgg GllbnQg XZgaAZq0R1ThSeumlYD+PC9 0KLAwBI71sVOelBDti0axdE q6CeDeQTGfKKL7pBdjXNjdj 3JkZXIt V02wqRUlc9M6DKDgwTaqpXG tSxUufJY7fW8vZYzcqugla9 pjnsaoHmcqn0rwqj46aT31W 29sIHdp ZHRoPSIzMCUiIHZhbGlnbj0 wpB0uId5+ZERqpRH0fOO4tF 9uBWLqFkM2WCvzP558BgTdc CIvPjxj g2oga4ddwLo8AwH4DXGgkrU lcBkvFRX0j6ZkXw70U96iTK dpZHRoPSIyMCUiIHZhbGlnb t3rcS4v Ii8+TWJbxNE0oHJ2wV0vFqB qVeL4JXwwF817EpTlbDKgBm dmH74jT9LjoWF+KDUuBms5G CBzdHls YD0diWPfGZwfKo4qTCC7LnD gEfXyNLviO3PlGEZvncsotg hqgXS5BVIsZLTylD97Qq0qo DogMTBw dBPNwU8bfiurd6sfpbudNiR pQBHdKDf4WXw4RPHdtLlgEd LsHYZ5PqF6SSB8iQScxP7wx Glnbjog mP0xG6TeOVKyvuxxXm57bN7 kIsXlEuW1ZXjfNqj+TUNDQU 5OLCBIRUFUSEVSIEVMSVpBQ kVUSDwv dGQ+FJSjGZD1kTdtBAfsIWW ncF7sFVRzZ8v2AbScDcU2PB jpX7IeUWEfdafsPi02gV7aZ iAwLjA1 UJmvB1UonoI4ZDUsfBVwUDu uPXX9C04rd7Y9GUVjESEkZW N2xRM9cE9fyNpcrbggrGJxn DsgdmVy aTajGUiaBOvtT119SJLfgGv uQtBlWcG6SoP1YYD5X3ZuTi j8NSYzgAriFB0yoDCtFLbbC o2gxXue sYnyKP5gDVBjzxyaBZGczT2 jPJQsxINskWhnQC9jYHCufp afz365UbWiDMF7OFSbrMAvA 8TmjD5u IfPhXCQgLMLkA1FyyDSnXOi oM766WMrhKfV1EEHlwaPhR1 YeUCPhpSbfCxP7g7Z2My1lB SBZZWFy czwvdGQ+XNZeIVN6hWpiBRc wRSZktR0bZEHzC5y4ZdMoBz W1JLkdK4DfFQQrthfeAl33f C3kLoCc PjE0ERhaQ6OubjD2QJCshQE hTHkdTJN9K28pr9I8XQQaLT TlJTB2aYJ3sM0eqVbywxvzn GVmdDsg zbDirMtlVFhmCIunG389PEW vcDsnPkZFTUFMRTwvdGQ+PH ElFHL3wAndUTtzWHFnoY6sY RZvA8j8 TzMkQiJ6YHlaV7VgVNDxllh yAr03hH1bXaBuOnT8FJvjI1 SqosW0SPIqyFImFIbnSBT5C 76rb9I8 BEPlQATwYHJ0gMF7yN9toNw nbjogbGVmdDsgdmVydGljYW ixPKbjC847YPCfjFwoXx4DO H83WZ44 A4AoOxhtdDFnrRV+PHRhYmx lIHdpZHRoPScxMDAlJyBzdH edSD2eJx1cCWRfOGOwzUidi HNlOiBj o9wtBSTwQPhxEM9zvCimH6M blWQ6QKQek9k5Zv19A76zJ5 JvdXA+VSHnuSS3uZN1bK8jE zAlIiB2 BWneU346NaNnjQRkZtwye8k mw1gitZo2XgXfFWOpajObbY fwYGO8i5DkGx97Q50lFOuvO HRoPSIy DDKqVSWezYszhr9izP2lWh7 +CMUueEI2kSY9hH2sWuLkTm O6LKcuA766TzRdwQMeYpdoJ 84tQ4Qo dXA+WSRrUqv8OYUjtPjnFN8 ruQNpLKpnQz9kDVB2BcAuGy YlSUmaY5LkBPKhxnfqdzkyr OC2RQNh PPQelZ28Hj7toSceSj1oTNS aEVV9ERGclZYbO2WfpQ1pAf KnTPDiAQIsB7FhwPLxHRktB 246IGxl MsB9MYNlfxVpX3AiUUFbwOo jMqC6t8H3Ya9MwByzeNTtJS 2tYxZoTCb3E8IdJzq0ISRbs FfoHZ8d uRMqZThvOw8bbRdkiAqcVK8 pGGHnytdzi920WzMwv7ezOU BadWXjINjvZZP4A53nf4Q8B CMwMDAw CKJ8sJS8nI7buEqwxyhsgZV mdDsgdmVydGljYWwtYWxpZ2 08HKGpdNrtVbBZTsi8X8NeH en4BMHb hSmrZX6txAZtINxaPq1oeWz cmZulAT1bRTOueswlc394Kh Ckw4hpZLPnuVPhJRztQYQ2J 16nf4N2 OSJnPAIpRXS0oFZ0tA0oiEj nbjogbGVmdDsgdmVydGljYW hzFIdmT356EXIpcOhmYp5FJ vi4Q4Ng Hcb7HSHtjBhgQE5lwPDqZBg oFr5qlHwwvBplFR8lYHHppq sed399LeRbi1kpHTHswHWdJ GltZXM7 C14gg1J3CDErEKYtTNK5zWE 4jB7tvIzpznafdNSgoLmles ParPujNIriNGjwO505XGEwk DsnPlBh eWVyOjwvdGQ+OD72sw52Y0W hFshzOsp5ZTHfUHO3oLN0jG 7qOCCzSHkao4J3hQZ0Q7Wpl pVirq0b b2x (more content not included)... Normal [facility] Coding Summary HTMLBase 64 XavojpsiBSe9uVb+PGhlYWQ +FY4BDBBaY37bzKUpbY4nB1 NMTElOSywgQVBQTElOSyIgb vIgXO0uuPEmODEu IC8+TF9yNVPoIupmuEWdp3F 1pWT8I27rzp8gDOsfjOV9CW VtLaFtbhiur7aseFk5IOwuG mluOyBt DWTnwL59MPA2zQ33Tm76yHT yaGPnv7okqLl5UaXwJAPhUP V6bLarCJtrj5FlIYNbW54ab ULdn7P0 BRPfbVbwxBGmYgMxpMF3cG9 aTXhnfrqta1odhmxcNgu7rh 18kGVyv8Z8mEV2V2ZcnsR9I GJvbGQg VpkwxBSPdI6owsytd7hjbli kNuRgCSUrXOc9YNh8GNAbiM gyRfDgMI17FPW9YYGqbvKjW 2FsLWFs qHluEfE6h5C5Ws6NW9XEGvk yF2RDDZNTNAkceMR+PC90cj 33F1TwQpwzQmp5FHLaYLK1k KX5iT4h YZZwIAhte8D5cYC2B3AsmqC gjr9eu6lwIDGtIZidN99uzM Yde7E3LTLcmCM7XTOawCemX iBzaG93 Oyc+BYYuzQjyo6IwUrybj1n et8qbhHo3QzumOBJhdjXltW thHBS1e2EbHm5xJKHerTB1g VV6tC9q OqDuHmO8WBabO081MmWrjJE gDxxtF93uS8JauBE+PHRyPj b5LPMfmLpeGG1pM3MwTAArw mctbGVm gLqgWI6yUOQpzwtcXPCeuS5 tHUQhE7v0ZaDqWzH7OZxmM8 JtKUXfrjkxQg97pH0qIhKrN hE8VPdk J7VwnvN8JFIorYLeOSmbKYD 0T96ox1K9MVWySDZtUPA2mT Q8cA2tiEnteefijSRezNwwd mVydGlj XQlxXDiuS569GEZuwNeoXhQ vZGluZyBEYXRlOiAgMDUvMD UvMjAyNTwvdGQ+QNZpQYP4c WxlPSAn zBUtJWkjYw8hvMyrrLoaCV3 kGRXrhzkuLUIgmB9aXOYgiI FfcVmfEC2bFXApkhden443Y iAxMHB0 IGQmjSLuJ7BwoS4nUfJaLHK oQPZiH9TweRCcOBteX592NX xfQzB0YBCrjrBkM1PsVRIzv WduOiB0 l0J4Dv9Dm2SbbkrpZ9NdkTK fApWfPswmJQk8C7IoFkitcO I+GQ24TUSuAC06KSy8FWR8p WxlPSdi IDCpK1GoaA3oIuZyMAEgOWQ kOyc+PHRhYmxlIHdpZHRoPS bmPYSvPyTzyIwpCL4hNj4uR GVyLWNv eQdqjOPtHbEyd3xgHUVaNMv oMK6kwDuvH3AgaJN2PBWdp7 p0Yr22V21nC6WivLH+PGNvb NI6wDL8 yJ4uRvHwGrQ7TViaN653BaH ryDFpWucxu5zvh1ygvFi6Cj V1GDFylgAqcZwjGGM0t4FfC f55A48i IHdpZHRoPSIxNSUiIHZhbGl bvx7rlR8qCm1+RJDzwVP5yI U5wV6rDbDqEoF6RVzhB325R nRvcCIv Gooev3mem6dhsCl1FsUzXWD mdsRydOgiEOL6g6DwOv28F8 SisRdlt4HsVfc8qd63fCAgy 0D2rRD3 M3AwPGZgzkmzuFYaoGmqYW2 uJUDpxwsdYXYkmD2nCGCxN0 g7VnIsTsU3QQtnU4EklvX9R GJvbGQg LQBjwSHNoK6uhmdwp8vpjnd oQwBlMAIbTSd5HNg7UXPflH zdMdBmNPM5UlE3OKT0eOGfn V5flZpq fughqZ2cUah+IRB3rAUwkZA PMM6nJwxzzTI+ZJGvHTI1mY emFKqqVHFvbX8bOEUlC2w2N iAwLjA1 VYnrV3WasqQ4LKGrdFAyPOW jcPSMzN0njdfei7yjxmpxIc DvMKKsPLb5RFq9XLUwkPzbY iBsZWZ0 TpA2VXM9kBJmxR9lnVqlbym xrA6eVtk+AkoyqGzlRSO5KC n7O9OwGjm3SEYxxIybRM3pr GFkZGlu Hz8maRlxeHzyVV3gKUBzhhb je841VaAmz4huCFSbgJYfGN wgBWT3G04ev0X1ADVvWDPuC QZ5oCM8 dR5nqSvqfxcnaXNkpMhgazA tgYviGEhxWWfbN846KEKrsF zdAwGfVJm2W2ZmWfp2HBSvz ZfkFM1a wAEeVFjrOt5lgIhwrLthMK3 mHFEhukufr775HjPvl3mqSX PquOYcHKyeJPM4C69fb7Y9G CMwMDAw IJW4aYA1dQ9atTrrvzabaZZ mdDsgdmVydGljYWwtYWxpZ2 78WFQalYpzIvIvsUf1Y6CbT wg6QVTb eRzeCX2wbIBqOPnlYm4ihOa zjLuyGY0tALTaqogmy305Qh Nxn6vrFMOueEBaYTcsAMI4K 33hi4B8 JNEyDMUeUSI3eJJ7hM2stSy nbjogbGVmdDsgdmVydGljYW scVWdlN051SWWxuJyoNtXxz GllbnQg TVrtURe1U2SfFuumfEV+PC9 6ZPNpPF79uBVyqNWjx5cpoA f5OxPeUVPyDPR8bFhnFIfvm 3JkZXIt T81oyRJtu2Q3TUBhmBsjdNG iQbKvpCM2dT1jADnbhjikl3 shuudtFwzfj2dwhe57mP92T 29sIHdp ZHRoPSIzMCUiIHZhbGlnbj0 sgK7tTh5+VWJmlNY9yHY0qG 8kEWFeIqG7UBzhQ571IxRie CIvPjxj f2bqj3owuPz7IfC2QABjcbL fgNogQHP4z6ZrUq57V82xOT dpZHRoPSIyMCUiIHZhbGlnb k8juX1m Ii8+VUHqxXP6kQA6sY5tRjG dNgB6VZbdG850CaQadRTmFm tuW08mS4ZbtSM+JNOtSom7P CBzdHls HG3rsVVbTEakYx8rPGD5CzH gVkYeWCelK9GiNHPtbiwcdc scbOD8KHTeZHPtzF02Xx3il DogMTBw fDHHcC6pyapus4ovkwsaBhG eLETyVIf8KPf0VISigEmpAj RmJUQ0IpS0UGU3fUGybR0rd Glnbjog cB4nF8UvSERdctmkPt41lZ8 xWmFcTjU1CBsbYrv+TUNDQU 5OLCBIRUFUSEVSIEVMSVpBQ kVUSDwv dGQ+KGFfZRO9eKqsHBstYCZ qyN0rBOAeL5n8LlNhZpT1RD gvP1UePQNwmqcrEr52sK5pG iAwLjA1 TXatT3ZqssF4SYPtxCTiWCw dEWS4K60wi7N1OIOxAHPfJN I7xJM7xD2gjYmyuhzkhAYrv DsgdmVy qVvrGPsxGDixT202SMPthEo nSuTiKpC8LrS0GAD9R3AfXw o0NBWlaJpwJO3nzSEiCExjN u3poBpa kAvpMF1sOTFcdemwFIOplZ8 gQBElwCWbaCnzCG1fPVNham zsk138JdDlICJ5PARjoQPqC 3WzyZ8e DfDcMFXmDXFxX2JvgEDiRZy pD468YUaiHqH4PIWnwlSuZ8 OkFKTmhMjhCeE8u7O4Ak1bO SBZZWFy czwvdGQ+WIQgQAJ0rKqkRUq eXOIbwP8dWEJkF9r0DcVzLl M8SNxwZ3LpZFIlndqjKu87s K2gQxCs AqD7FSrbV7AmzxL3FDJzuUP pKYmdPBB5V75fj2H4BCDxKI XgBIJ6fBC9iT6gqXnlqtham GVmdDsg hcSmvHbvNFmrSEuiN356DJW vcDsnPkZFTUFMRTwvdGQ+PH GaGOG9gLmkZYdcIFVwgB6oD RUsM6m8 IlGsQpV1LLwmM1CfSKAmwoh eSu63gO5zFjIwZsA4NBejO0 VdbiW9TWCyaSZuVLlyWUU1R 81xs3Y8 SCVzDHUpRXX3pFU6oR3soKp nbjogbGVmdDsgdmVydGljYW cdXUfjA959LKPouJheQs0PA C65QC77 H8JaQpgvyQQnbDW+PHRhYmx lIHdpZHRoPScxMDAlJyBzdH xvNN1kEg9mEFFvOJDkfCzsz HNlOiBj v2ggFWNtHRpdNX9ifTejB5T ldZJ5QFDjz2t3Iz91B04iB2 JvdXA+PGLfaGK8uRZ9qN2wO zAlIiB2 DAanA275BsMzlJQlOeean7j id0nvvGs1RkWwCTQhpjHucP ciATR8t5ChKj14E03hPZpdZ HRoPSIy FJIeIEIceGpmdn8sqY9iPq6 +QAFeoHW8wIO6lK5vHiXiEu A7MAnzQ066ZuFxeQQzOlgyI 94zJ8Zm dXA+MKJmSlq7GEXzoMxfSJ9 mnDKjFOamYb5iVRF7XwTxDw PjQBoaN4LrPWPyjjjjkirxp SZ0MFLa WFBvrK47Vs7jxXegPd4zKKN qDEV0LWNcsUUnN9EppV2oIu TcRTCtKWRhL0JdcZIdFItcF 246IGxl ReG0AJNywbQtT5ZvWBIxxZh eOmC9e8B3Wc7HrTmjvYQcZE 6fRdBkQUj9I1WxFvg4CQWqg ZisHI6f rTRvFEllRb3dwKfwsKnwQT5 yYARcnuvig289IzXig1tsQX HkcPJfPDpySFF9P41he0D7I CMwMDAw OHH3oLV3mQ8auFoctomqiMX mdDsgdmVydGljYWwtYWxpZ2 54LVXygEwlEmGOZkd0R4HnR fk1PQJx tCkbVY9msXHzFPndXp8czBy isAmdUK2aWFIyawwwt355Tw Wgw4udUBPkgPAcOJduURT8F 16pt5W2 SZSvDFNuDEL4vKN8mO6uaYn nbjogbGVmdDsgdmVydGljYW auWHjnW681EHYmjAlfHc1CL xu3M0An Cpp7VKCsmHylPM8sdIIvBXh zRg8rnDhdhFmaHI2fZVLomz idp126HgUvi4zjJMCxcGRbD GltZXM7 C38ps9O9PMAaAGUbOJL3vEQ 8dU5awLolhzgraLOfmRktwq OciQgcTMwgTOwiS707JGGyq DsnPlBh eWVyOjwvdGQ+YE02xi31C7Y fVzejEmp0RYWfWAM1qJJ8zF 1lGSTcDDuxr0H3wNI6X0Mdo aCnsx7q b2x (more content not included)... Normal [facility] Provider [place] 08-17-2024 Provider Orders [id number]#1.00O TGTIFF Normal [facility] hCG Quantitativeon hCG Quantitative 362.7 mIU/mL High 0.0-0.6 [facility] Comment on above: Result Comment: Post -Menopausal Reference Range is: 0.1-11.6 mIU/mL Performed By: #### [id number] #### [facility] (DEFAULT) [address] [place] [address] 08-16-2024 [facility] Telephone (REIBD) JAZ SANDERS ([id number]) 1995 F Date Time Provider Department 08/16/24 SHELLY HERNANDEZ During your visit today, we recorded the following information about you: Angella Mccarthy 08/16/2024 12:31 PM Signed Name: Jaz Maldonadoann called today. : 1995 (home) [phone] (cell) Reason for call: pt called that she got positive test, she has been having having cramping since last night , it happens every hours for couple minutes. The patients preferred pharmacy has been captured for this encounter? yes Angella Morillo Lead BlenderDaniel Li APRN.JARROD 08/16/2024 5:28 PM Signed Called patient back to phone number listed in [facility]-no answer. Lm for patient to look out for [employer] message. Daniel Hanna APRN.JARROD August 16, 2024 5:15 PM Allergies As of Date: 08/16/2024 (Not on File) Date Reviewed: 05/09/2024 Reviewed by: Shelly Hernandez APRN.CNP - Fully Assessed Reason for Visit: positive for [Other] Primary Visit Diagnosis: resulting from assisted reproductive technology in first trimester ([facility]) [O09.811] Prescriptions as of 08/16/2024 - naltrexone [...] Encounter Status:Closed by DANIEL HANNA on 08/16/24 [facility] 08-15-2024 [place] Telephone (REIBD) JAZ SANDERS ([id number]) 1995 F Date Time Provider Department 08/15/24 SHELLY HERNANDEZ REIBD During your visit today, [...] File) Date Reviewed: 05/09/2024 Reviewed by: Shelly Hernandez, SOURCING SPECIALIST.TRAVEL REGISTERED NURSE NICU - Fully Assessed Reason for Visit: Patient [...] Encounter Status:Closed by SHELLY HERNANDEZ on 08/15/24 [facility] Provider [place] 08-15-2024 Provider Orders [id number] [facility] [id number]#1.00O [facility] Quantitativeon hCG Quantitative 160.6 mIU/mL High 0.0-0.6 [facility] Comment on above: Result Comment: Post -Menopausal Reference Range is: 0.1-11.6 mIU/mL Performed By: #### 7 [id number] #### [facility] (DEFAULT) [address] [place] [address] CNPNon 08-13-2024 CNPN Telephone (REIBD) JAZ SANDERS ([id number]) 1995 F Date Time Provider Department 08/13/24 SHELLY HERNANDEZ During your visit today, we recorded the following information about you: Marianna Wrad RN 08/13/2024 11:19 AM Signed Letters sent. sent to patient Marianna Ward RN August 13, 2024 11:19 AM Allergies As of Date: 08/13/2024 (Not on File) Date Reviewed: 05/09/2024 Reviewed by: Shelly Hernandez APRN.TRAVEL REGISTERED NURSE NICU - Fully Assessed Reason for Visit: Wants hcg levels sent to [facility] / lives far away [Other] Prescriptions as [...] Encounter Status:Closed by MARIANNA WARD on 08/13/24 Normal [facility] Provider [place] 08-13-2024 Provider Orders [id number] OTGTIFF Normal [facility] hCG Quantitativeon hCG Quantitative 63.6 mIU/mL High 0.0-0.6 [facility] Comment on above: Result Comment: Post -Menopausal Reference Range is: 0.1-11.6 mIU/mL Performed By: #### 7 [id number] #### [facility] (DEFAULT) [address] [place] [id number] CNOVon 07-31-2024 CNOV Office Visit (REIBD) JAZ SANDERS ([id number]) 1995 F Date Time Provider Department 07/31/24 3:00 PM SHELLY HERNANDEZ REIBD During your visit today, we recorded the following information about you: Last Period 07/19/24 Mustapha Tello MA 07/31/2024 3:12 PM Addendum Patient verified by full name and date of . Jaz Sanders is here today for an IUI. LMP: 07/19/2024 Natural cycle IUI Timed With: Ovulation Predictor Kit , Date: 07/30/2024 Drum Tester offered: Patient declines Mustapha Tello MA July 31, 2024 3:12 PM Dominguez Barry 09/05/2024 10:45 PM Signed IUI specimen released to provider Dominguez Barry July 31, 2024 3:24 PM Dominguez Barry 09/05/2024 10:45 PM Signed IUI [facility] Donor # [id number] Pre: frozen washed specimen Post: 82 M/ml, [...] 3. Cycle Day: Last menstrual period: 07/19/2024 [facility] Protocol: UNIVERSAL PROTOCOL / SAFETY CHECKLIST Procedure [...] Encounter Status:Closed by SHELLY HERNANDEZ on 09/05/24 [facility] CNOV Office Visit (ANDRBE ) JAZ SANDERS ([id number]) 1995 F Date Time Provider Department 07/31/24 2:30 PM [facility] During your visit today, we recorded the following information about you: Dominguez Barry 07/31/2024 3:26 PM Signed Thaw for IUI. Dominguez Barry Referring Provider: SELF [[id number]] Allergies As of Date: 07/31/2024 (Not on File) Date Reviewed: 05/09/2024 Reviewed by: Shelly Hernandez APRN.CNP - Fully Assessed Primary Visit Diagnosis:Procreative management [...] Encounter Status:Closed by DOMINGUEZ BARRY on 07/31/24 [facility] Xavier 07-30-2024 JARROD Telephone (REIBD) MARIA EUGENIAJAZ ([id number]) 1995 F Date Time Provider Department 07/30/24 SHELLY HERNANDEZ REIBD During your visit today, we recorded the following information about you: Charisse Ding 07/30/2024 3:16 PM Signed N- ivf Pt has questions regarding IUI Shelly Hernandez APRN.CNP 07/30/2024 6:00 PM Signed patient's OPK today was dark but not positive Plan: test again tomorrow. if darker, schedule IUI on Tuesday if clinic lead than today, schedule IUI the same day Shelly Hernandez APRN.CNP July 30, 2024 6:00 PM Allergies As of Date: 07/30/2024 (Not on File) Date Reviewed: 05/09/2024 Reviewed by: Shelly Hernandez APRN.CNP - Fully Assessed Reason for Visit: Patient Question [6367] Prescriptions as of 07/30/2024 - naltrexone 50 [...] Encounter Status:Closed by SHELLY HERNANDEZ on 07/30/24 Normal [facility] CNOVon 07-07-2024 CNOV Office Visit (REIBD) JAZ SANDERS ([id number]) 1995 F Date Time Provider Department 07/07/24 10:00 AM MIKEY TORRES During your visit today, we recorded the following information about you: Mikey Torres MD 07/19/2024 7:48 AM Addendum WHI JAMEL IUI PROCEDURE NOTE Date: 07/07/2024 Primary Proceduralist: Nakia Duran MD Consents and Labels Consent Signed: Informed Consent obtained and on the chart Labels Verified With Patient: Yes Indications: Jaz Sanders, is a 29 year old No obstetric history on file. female here today for intrauterine insemination. IUI # 2. Cycle Day: 14 Last menstrual period: 06/24/2024 [facility] Protocol: UNIVERSAL PROTOCOL / SAFETY CHECKLIST Procedure [...] Gonzalez 07/19/2024 7:50 AM Signed IUI [facility] #[id number] Washed frozen specimen Post: 31 m/ml, 77% Insem#: 10.8 million Referring Provider: DANIEL HANNA [[id number]] Allergies As of Date: 07/07/2024 (Not on File) Date Reviewed: 05/09/2024 Reviewed by: Shelly Hernandez APRN.TRAVEL REGISTERED NURSE NICU - Fully Assessed Primary Visit Diagnosis:Encounter for [...] Encounter Status:Closed by MIKEY HENLEY on 07/19/24 [facility] Office Visit (ANDRBE ) JAZ SANDERS ([id number]) 1995 F Date Time Provider Department 07/07/24 9:30 AM [facility] During your visit today, we recorded the following information about you: Nichelle Gonzalez 07/07/2024 9:41 AM Signed Thaw for IUI Nichelle Gonzalez Referring Provider: DANIEL HANNA [[id number]] Allergies As of Date: 07/07/2024 (Not on File) Date Reviewed: 05/09/2024 Reviewed by: Shelly Hernandez APRN.TRAVEL REGISTERED NURSE NICU - Fully Assessed Primary Visit Diagnosis:Procreative management [...] Encounter Status:Closed by NICHELLE GONZALEZ on 07/07/24 [facility] ([id number]) 1995 F Date Time Provider Department 07/06/24 SHELLY HERNANDEZ REIBD During your visit today, [...] Date Reviewed: 05/09/2024 Reviewed by: Shelly Hernandez APRN.TRAVEL REGISTERED NURSE NICU - Fully Assessed Reason for Visit: Patient [...] Encounter Status:Closed by BECKI ISAACS on 07/06/24 [facility] 07[facility]05-2024 [facility] ([id number]) 1995 F Date Time Provider Department 07/05/24 [...] Date Reviewed: 05/09/2024 Reviewed by: Shelly Hernandez APRN.TRAVEL REGISTERED NURSE NICU - Fully Assessed Reason for Visit: re [...] Encounter Status:Closed by MARIANNA WARD on 07/06/24 [facility] 07[facility]04-2024 [facility]AND[facility] ([id number]) 1995 F Date Time Provider Department 07/04/24 SHELLY HERNANDEZ REIBD During your visit today, we recorded the following information about you: Shelly Hernandez, SOURCING SPECIALIST.[facility] 07/04/2024 7:30 PM Signed Spoke with Jaz [...] Signed Ignacio Guy MD to Jamel Skylar Carpio 07/05/24 9:05 AM Cervicalpolyp does not need to be removed. She will need [facility] guidance for her next IUI. Dr. [...] Read By: Ignacio Guy M.D. MATERNAL MEDICINE [facility] Radiology Study observation (narrative) [facility] Xavier 06-29-2024 [place] Telephone (REIBD) JAZ SANDERS ([id number]) 1995 F Date Time Provider Department 06/29/24 SHELLY HERNANDEZ REIBD During your visit today, we recorded the following information about you: Kassidy Meyer 06/29/2024 8:53 AM Signed Pt had iui 06/09, pt isnt . Please follow up Cd1 06/23 . Pt had hematoma after iui Charlotte Snowthia 07/02/2024 9:18 AM Signed Pt wants to know if she has to have us before iui this weekend Shelly Hernandez APRN.JARROD 07/03/2024 12:34 PM Signed unable to reach, [...] Encounter Status:Closed by MARIANNA WARD on 08/13/24 Normal [facility] CNOVon 06-09-2024 CNOV Office Visit (REIBD) JAZ SANDERS ([id number]) 1995 F Date Time Provider Department 06/09/24 11:00 AM IGNACIO GUY During your visit today, we recorded the following information about you: Nichelle Gonzalez 06/09/2024 12:30 PM Signed IUI specimen released to provider Nichelle Gonzalez June 09, 2024 11:24 AM Nichelle Gonzalez 06/09/2024 12:30 PM Signed IUI Cryobio #: [id number] Washed frozen sample Post: 42 m/ml, 74% [...] Cycle Day: 13 Last menstrual period: 05/28/2024 [facility] Protocol: UNIVERSAL PROTOCOL / SAFETY CHECKLIST Procedure [...] was discussed with the patient or authorized risk control field representative. The patient or authorized risk control field representative has agreed to proceed with the sensitive examination. (Sensitive examination includes inspection and/or palpation of the breasts, pelvis, prostate and anorectal regions) Patient declined call or contact centre manager. Vidhi Sheldon MD IUI IUI Date: 06/09/24 [...] stopped. Will get pelivc scan here at [facility] if not with this IUI prior pt proceeding with another attmept at IUI. Ignacio Guy MD June 09, 2024 12:30 PM SIGNATURE: Vidhi Sheldon MD PATIENT NAME: Jaz Sanders DATE: June 09, 2024 TIME: 12:01 PM Referring Provider: DANIEL HANNA [[id number]] Allergies As of Date: 06/09/2024 (Not on File) Date Reviewed: 05/09/2024 Reviewed by: Shelly Hernandez APRN.[facility] REGISTERED NURSE NICU - Fully Assessed Primary Visit Diagnosis:Female infertility [...] Encounter Status:Closed [facility] ([id number]) 1995 F Date Time Provider Department 06/09/24 10:30 AM [facility]Y [facility] During your visit today, we recorded the following information about you: Nichelle Gonzalez 06/09/2024 11:48 AM Signed Thaw for IUI Nichelle Gonzalez Referring Provider: DANIEL HANNA [[id number]] Allergies As of Date: 06/09/2024 (Not on File) Date Reviewed: 05/09/2024 Reviewed by: Shelly Hernandez APRN.[facility]AVEL REGISTERED NURSE NICU - Fully Assessed Primary Visit Diagnosis:Procreative management [...] Encounter Status:Closed by NICHELLE GONZALEZ on 06/09/24 [facility] Coding Summaryon 05-24-2024 Coding Summary HTMLBase 64 ScwkrjfzZLo6xJc+PGhlYWQ +FK3ARLHsL82htZPmaC9wZ0 NMTElOSywgQVBQTElOSyIgb uThHR2ghBBdINSq IC8+IW0fIIAsVgobiBPpm9W 5tOK9O78prz7kHFqunJH4HE CzMbYicbofs7odwPo6VUldV mluOyBt VBGmjW59ULT0qX10Xz61cGR qaOVos4hhfEs4PpXjHWQnKN F3pZtaDGzul9OuCBXdZ30pd DGxn1T6 NHGnhXeivEOpXuCqqNG6gC1 wYBfdcdssb7qypnboIko2kw 51iSAyz8G6pPR5U4ExaqX2F GJvbGQg KrnkgVHPzN1ifhjvw4mppms iVdPjNRHuRRw4VEh7VBRxdI nmPxIpUI78RTX4NBMviwKiE 2FsLWFs nYxzBgC2i4Y1Ya3KK0XHDlf eB5ZFETZNASzjjYL+PC90cj 14I4LuTljcTbq4VOIjJLR0g JU1hT6i MGPdQKpnx8T9ySD6H4QxpdD xjw5ho1sxPDPeWDvlT03rxU Vjh6P6JYMptBT0EKQjkIacV iBzaG93 Oyc+UVZbrXtlf3EzBhndd5p no3xeeOl8IgkeUZIrerVxwS lvISP8b0GoOy2cNBRikPI2v HK2lM1e WyIaTiX6NKjeE890ItRodLK nNrmkN21eS0JxrQZ+PHRyPj t5DMUgeXcqMX5cB6TiVVUxn mctbGVm bWgyIY0eJNIqwjobCLUwrW4 dXCDdE5g4BdOwDtS4BJafQ8 NgDSGqhywaFl70kZ2pZeExO bW5QNmv A4IavlO3TKAckEAeQWucKKL 4W58do9L2CTMyCBAtEYX0aL V0pK8yvYpdoyxepWSolCkyv mVydGlj SFnmGCdsS197YWSfjGrxImQ vZGluZyBEYXRlOiAgMDIvMD YvMjAyNTwvdGQ+LERwCJC0p WxlPSAn cWIqOZpyUz9jqJpjnOlqLM2 gBAJhsorcSOHqcQ7lZRRjuQ KqkBfkNY6kXHPyanszd146Z iAxMHB0 FMJeiAIkK4AfmI5nJgTuMVA pYJNtV2LotQRfURulO048VI aaZpN7LRKvfqVhK5CzSRMat WduOiB0 b6Q9Za9Uf3DdnsfpK7XzoPY zEkBgQmiqYKq8F1PlHqtiiA I+EU52LKJnAI75TXg5KYS9x WxlPSdi LUFvV0MfrF0fMsDuMXRyNCZ kOyc+PHRhYmxlIHdpZHRoPS juCXPmRbRawKjiHV8qFn7yH GVyLWNv iIiicGWgDvVmc0lrPYJeNFe uYG1ryZqbA1GmgKP0BDHaf5 r0Nq85H56hI1NwgCZ+PGNvb IA2uNJ9 rW0vGwWhEpT0GTbtD068ZpY ezUDrOwaax5dtq6wnjMd7Zi B7ZEScegSguBwsPJF6a0JtF d38X90s IHdpZHRoPSIxNSUiIHZhbGl zpr3rlD3bQn9+BGSbqHO6wX F2lF5gTwJcSvZ7DIklI753F nRvcCIv Bloyk9nwj9jsaEw6IcIcBNP luyOlwRiuITJ2o3OpZe99V5 PfyTypd0UhKvz2ex88iRJpj 7E3qGD4 P0DlUVSvdeqxfITooDjjPS2 wSPGfsdlcUMDplV5wUGSoA0 u0SyCoZnH0DCsrY5OkmvR4A GJvbGQg CTFojPYHyI5upjqrz9ahcis yBiJuCNKsOJk8ZSx1LDQmgH vjMlOpMYO0YvQ9OJG3xDBzl L8ekIxv wukrmX1gDwl+LKE0fVGkfWF LEJ9mNoxcrGB+HXNtNBX1tJ mfAKhpIHRrgQ6yYOPwG0f0A iAwLjA1 RArxP7CsnpM6GDLkzEStDOY ceFOEwJ0dkjfgw1rsafrcPl CfIXOyLIp2JRf1RMWsoGlaK iBsZWZ0 ZxS3ZFZ8vJJcnM8pdZusbvj wzP8oBpr+ZbxtyArrHZD2XV o0H1ZdZhn9VFGcuFjtDG9hc GFkZGlu Kj8ggHverVuoQJ3hGGMqnph ax173GzHej3wvFUKmuEOuVA ciYCN3O51xx1T2YEIhIHPpX FV4dWP6 aY6aiRyheljyqLPfuNjnlzB dvJguAPsqADufH141WCLerR vkGfRbGRv1Y0XcOzb7THYfk HgfZI8u sYWpLUjsMw0sdKlwvCmqYC9 iUFEidauzz270MsLav2dxAT LawELkNMzeUGF6R42es1E1O CMwMDAw PIA7pSK7qX7foGtcdssyjJD mdDsgdmVydGljYWwtYWxpZ2 67DGKteYvrMuVdtXm1N5NyI ym3BYCl gZypRT5qsMPyYXjmId9gpPk kgUodNN6dADMzsouzd869Nc Htl7dbMXVvgMDzZSbdKBY9H 59sa4C5 YLTcDEMqBWX2lHT4tK7mlCi nbjogbGVmdDsgdmVydGljYW qgEYecS835TNFunLgcAqRdh GllbnQg VIjwMQe6X8ZcAbtvuZC+PC9 9VLZmWX69pMQrnDOls8jpfI h1LfEfTKRpGMI7qFtoEMreu 3JkZXIt C06nlTKdp6Q4JZPgwOgnyIQ iMnUufDO9vW7bDImdcglhy9 xzxjtgSdbxa4qjse65oY46A 29sIHdp ZHRoPSIzMCUiIHZhbGlnbj0 cgC6dJp0+KXXlzOB2tVT7fR 1zZBAuNgC3SRxyR981YzQub CIvPjxj y1xhd1iqsRw8PxH7GTIwfrK tjPffGRP2u1VcHf65C63gOD dpZHRoPSIyMCUiIHZhbGlnb h1nfO4g Ii8+SXVveVC7nNW2wD2eDhB rXrA1XRxrY980FuNlnOLoHz uqL17yV2QslCC+KVGrDkh8C CBzdHls FL2bhVZvEYemJm5kCFU2CaH rRmBwKImxV2ZyMLZjcmgwfa awnMF8NBByAGBziO44Vo7zv DogMTBw bGBOyN1tvnamj4dhubupNaZ vBHYkILm9DUs1XJQifVeuWa RcKVU9LfD4FOO3wBUhyF6dp Glnbjog sX3jY1StXRCpchboVw79wF2 lUzUtAqO8XFmyJsp+TUNDQU 5OLCBIRUFUSEVSIEVMSVpBQ kVUSDwv dGQ+WSWxTKX3pKbhGUxkLGD xyL9qPOVvP8l4WrAcQsT1TV keR0ZaDYAbbfdhZz16iN3pW iAwLjA1 FKknX2PzxrK5MPEhbHZfRTt vZVM2Y76uj5U4KTGoGDBjON L4tUO4aH8emPvllcveeUFjr DsgdmVy iNrtVNyaRDvhY581RLFdsAv fFqFzAaJ3OgA5KET4A1YkSi o7MGQsxRthQZ4pxYYkDVwsS c1teYog mAqdGU9zQEZjprurQKHhnO6 jOIOdfCWrfZufBF8yWTOyuq gon439DrXnGRX5XBIorQLzC 4FhrK2b NrLlHQBjRCYtE3QieYLhHZu oO772URxvGgQ5OZIvvzSpF6 YnMRIztVdvVjC5z2F1Qc3qR SBZZWFy czwvdGQ+NWZvWKK7oQabAQg tBFAueS0cCHKvK0o4QbBcPk M1HEmbW0PaGZNzcdqaKq19m G7lLcLx ZdF5IVmlY7FgpiX1LZXjqSF zFNagGXU9A99vs0T8VIPlEA YhLNY1wLM8uJ3ibAesupuwm GVmdDsg paEizJflJFyePBucH942NWA vcDsnPkZFTUFMRTwvdGQ+PH YuOND5wSrvOBsqJSKvlH1gZ VUoK6r4 ZxWfPyB2UWmtM4QfBUJncqk hQc80aC8xVwNhArF6KDqtS4 HqnbT6YZZwlEIuXOaxJLS4G 23qu5M4 PRIbLXCbKGE0aCZ7iC0kiEa nbjogbGVmdDsgdmVydGljYW bvTBfkR793CTJslNieMz0TM I77MR15 K6UcYuxlvRYmrMU+PHRhYmx lIHdpZHRoPScxMDAlJyBzdH nvDN3cTy6hFRCdPHSsdOhdy HNlOiBj t3arFFYkAModHP1imVotS6A lzFM0ZERmw7q0Wu15V34lT9 JvdXA+ZQUpiQJ7tOM6oS1aL zAlIiB2 DGdqM461CmTckHTdXeakp4u xe6uzvBl6IxNwRKCfrfWsrD ioESE7l4WsNj54T00qCDymO HRoPSIy LHVrDDCsxFbnqf7fxA7nTv5 +RHDqoJN1cRV0sW3wFsRjCe K9ZDyuX629BsLoyHXgAgstV 63uZ5Fm dXA+URVxRdr0DZWurLpwXW3 sqFHfYZzoWk5gTRS7LvYsFs WlWThdG5PzMYSyyojqrrlcp IL4GZPu RDOhvU20Np2luYovEi1mSSF mEWI6IXAmwQTmR1QrdD9bXe ThVNBhQVDfE3XazFSpGZmsJ 246IGxl ZoQ3ROHwgiIdU0LnHTIdnZf pYrG6r3T1Ju0QcRkoqIDeTO 1dUrJcYGf2C3XzQib4GIDlh UtzTG7m mZPwBCphEs9ovVsrcInyHN7 cBEBwydmiv839VxAmk5ymWM SkyEIjBPynYJP9Q58rf8N7G CMwMDAw XWK5vMH6nJ3qjNudevbuxQU mdDsgdmVydGljYWwtYWxpZ2 32SFCreOseTlRIOjd9Q6JdG kv1NYHs gTzjVM7wwXZzCDvlZd7zwUg vyYacZC4aRVEgpogbf345Pr Utn2itTMQgaOQjWDppYYH4L 39af9T6 VIRxSPQjXLH6nPJ9fO1lbTk nbjogbGVmdDsgdmVydGljYW wcWPlrQ884HOKhiHikYt2TR uj7I2Qc Alj5FOYztCfaXC2txGLnHKv cDe2kjXczzKskDM1eXUJebx aqz809PfStu1amXWTwnIRvS GltZXM7 H97xc2E4HTFrRKTsZGK9uWG 0wK7eaEjhpckywFHpfDtqfu RdcDtzPRnsCErjJ364ZSIai DsnPlBh eWVyOjwvdGQ+PP71ly39B6B vQdamJlk7LIQyMBD8iGN0uU 9lWBQeNGrmh5A7vUQ1X6Upr vJtwf9m b2x (more content not included)... [facility] Progesterone LCon 05-22-2024 Progesterone LC 7.6 ng/mL Invalid Interpretation Code [facility] Comment on above: Result Comment: Foll icular phase 0.1 - 0.9 Luteal phase 1.8 - 23.9 Ovulation phase 0.1 - 12.0 First trimester 11.0 - 44.3 Second trimester 25.4 - 83.3 Third trimester 58.7 - 214.0 Postmenopausal 0.0 - 0.1 Performed At: Lab[address] [id number] J Luis Gray PhD Ph:[phone] Performed By: #### 3 [id number] ####[facility] (DEFAULT)[address] [place] [address] Provider Orderson 05-21-2024 Provider Orders [id number]#[id number] [facility] Physical Therapy Note [id number]#1.00[facility](OH)D3 SerPl-mCncon 2023 25-hydroxyvitamin D3 [Mass/Vol] 28.8 ng/mL Low 31.0-80.0 [facility] Comment on above: Order Comment: Speci men Type: BLOOD SPECIMEN Ordering Facility: [facility] Address: [address] [place] [address] Result Comment: Clas sification of 25 [place] Vitamin D status: Deficiency/Insufficiency: < or = 30 ng/ml. Sufficiency/Optimal Levels: 31-80 ng/mL Toxicity: > 100 ng/mL. Test performed by chemiluminescent immunoassay. Performed By: #### 5 5454-3 #### [facility] CLIA [id number] [address] [place] [address] [place] C. trachomatis+N. gonorrhoea e DNA AC+probe Ql (Unsp spec)on 04-02-2024 C. trachomatis rRNA AC+probe Ql (Unsp spec) Not detected Normal Not detected [facility] Comment on above: Order Comment: Speci men Type: BLOOD SPECIMEN Ordering Facility: [facility] Address: [address] [place] [address] Performed By: #### 5 5454-3 #### [facility] CLIA [id number] [address] [place] [address] [place] N. gonorrhoeae rRNA AC+probe Ql (Unsp spec) Not detected Normal Not detected [facility] Comment on above: Order Comment: Speci men Type: BLOOD SPECIMEN Ordering Facility: [facility] Address: [address] [place] [address] Performed By: #### 5 5454-3 #### [facility] CLIA [id number] [address] [place] [address] [place] CARRIER SCREEN, EXPANDEDon 1 06-03-2023 CARRIER SCREEN RESULTS View results in S canned Documents link when available. Normal [facility] Comment on above: Order Comment: Speci men Type: BLOOD SPECIMEN Ordering Facility: [facility] Address: [address] [place] [address] Performed By: #### 5 5454-3 #### [facility] CLIA [id number] [address] [place] [address] [place] CMV IgG Qnon 04-02-2024 CMV IGG QUAL Negative Normal Negative [facility] Comment on above: Order Comment: Speci [facility] Type: BLOOD SPECIMEN Ordering Facility: [facility] Address: [address] [place] [address] Result Comment: No s erological evidence of past exposure to Cytomegalovirus. Cannot exclude recent infection if the specimen collected within 4-6 weeks after infection. Performed By: #### 1 989-3, RUBOTIS, 7852-7, 7853-5, VZVG2 #### [facility] CLIA [id number] [address] [place] [address] [place] [facility] CMV IgG Qn <0.20 Normal [facility] Comment on above: [facility]: [facility]: [facility] Address: [address] [place] [address] Result Comment: The magnitude of the measured result is not indicative of the amount of antibody present. U/mL values are interpreted as follows: Negative <0.6 Equivocal 0.6 to <0.70 Positive >=0.70 Performed By: #### 1 989-3, RUBOTIS, 7852-7, 7853-5, VZVG2 #### [facility] CLIA [id number] [address] [place] [address] [place] CMV IgM Qnon 04-02-2024 CMV IGM, QUAL Negative Normal [facility] Comment on above: [facility]: [facility]LOOD [facility] Address: [address] [place] [address] Result Comment: No s erological evidence of recent exposure to Cytomegalovirus. Performed By: #### 1 989-3, RUBIGG, 7852-7, 7853-5, VZVG2 #### [facility] CLIA [id number] [address] [place] [address] [place] HBV core Ab Ser Qlon 024 HBV core Ab Ql (S) Negative Normal Negative [facility] Comment on above: Order Comment: Speci men Type: BLOOD SPECIMEN Ordering Facility: [facility] Address: [address] [place] [address] Result Comment: No e vidence of current or past infection with Hepatitis B virus. Should recent infection be suspected, repeat testing may be considered 3-4 weeks after this draw. Performed By: #### 1 6933-4, 5195-3, 99623-3, 13351-3 #### [facility] CLIA [id number] [address] [place] [address] [place] HBV surface Ag Ser Qlon 03-18 HBV surface Ag Ql (S) Negative Normal Negative [facility] Comment on above: Order Comment: Speci men Type: BLOOD SPECIMEN Ordering Facility: [facility] Address: [address] [place] [address] Performed By: #### 1 6933-4, 5195-3, 46298-2, 84404-9 #### [facility] CLIA [id number] [address] [place] [address] [place] HCV Ab Ser Qlon 04-02-2024 HCV Ab Ql (S) Negative Normal Negative [facility] Comment on above: Order Comment: Speci men Type: BLOOD SPECIMEN Ordering Facility: [facility] Address: [address] [place] [address] Result Comment: The result suggests no evidence of active infection with Hepatitis C virus. Should recent infection be suspected, repeat testing may be considered 4-6 weeks after this draw. Performed By: #### 1 6128-1 #### [facility] CLIA [id number] [address] [place] [address] [place] HIV 1+2 Ab IA Qlon 4 HIV 1 and 2 Ab IA.rapid Nom (S/P/Bld) Normal [facility] Comment on above: Order Comment: Speci men Type: BLOOD SPECIMEN Ordering Facility: [facility] Address: [address] [place] [address] Result Comment: Test not indicated. Performed By: #### 1 6933-4, 5195-3, 54945-0, 04720-0 #### [facility] CLIA [id number] [address] [place] [address] [place] HIV 1+2 Ab+HIV1 p24 Ag IA Ql Non-Reactive Normal Nonreactive [facility] Comment on above: Order Comment: Speci men Type: BLOOD SPECIMEN Ordering Facility: [facility] Address: [address] [place] [address] Performed By: #### 1 6933-4, 5195-3, 83118-7, 54062-2 #### [facility] CLIA [id number] [address] [place] [address] [place] HIV immunoassay testing algorithm interpretation (S/P/Bld) [Interp] [facility] Comment on above: Order Comment: Speci men Type: BLOOD SPECIMEN Ordering Facility: [facility] Address: [address] [place] [address] Result Comment: No e vidence of HIV-1 or HIV-2 infection. Should recent infection be suspected, repeat testing may be considered 2-3 weeks after this draw. [place] Rev. Code 3701.243(E): This information has been [...] diagnoses. Performed By: #### 1 6933-4, 5195-3, 25128-0, 67781-8 #### [facility] CLIA [id number] [address] [place] [address] [place] HbA1c (Bld)on 04-02-2024 Average glucose Estimated from glycated hemoglobin (Bld) [Mass/Vol] 85 mg/dL Normal [facility] Comment on above: Order Comment: Linden negrete Type: BLOOD SPECIMEN Ordering Facility: [facility] Address: [address] [place] [address] Result Comment: eAG: (Estimated average glucose) is a calculated value from HgbA1c and is risk control field representative of the average blood glucose level in the last 2-3 month period. Performed By: #### 5 5454-3 #### [facility] CLIA [id number] [address] [place] [address] [place] HbA1c (Bld) [Mass fraction] 4.6 % Normal 4.3-5.6 [facility] Comment on above: Order Comment: Linden negrete Type: BLOOD SPECIMEN Ordering Facility: [facility] Address: [address] [place] [address] Result Comment: [place] Diabetes Association guidelines indicate that patients with HgbA1c in the range 5.7-6.4% are at increased risk for development of diabetes, and intervention by lifestyle modification may be beneficial. HgbA1c greater or equal to 6.5% is considered diagnostic of diabetes. Performed By: #### 5 5454-3 #### [facility] CLIA [id number] [address] [place] [address] [place] RUBELLA IGG ANTIBODYon 04-02 RUBELLA IGG AB, QUAL Positive Normal Positive [facility] Comment on above: Order Comment: Linden penelope Type: BLOOD SPECIMEN Ordering Facility: [facility] Address: [address] [place] [address] Result Comment: The result suggests recent or past exposure to Rubella virus or history of Rubella vaccination. Positive result may also be seen due to presence of passively-transferred antibodies. Please correlate with patient's history. Performed By: #### 1 989-3, RUBIGG, 7852-7, 7853-5, VZVG2 #### [facility] CLIA [id number] [address] [place] [address] [place] Reagin and Treponema pallidu m IgG and IgM [Interp]on 04-02-2024 T. pallidum IgG+IgM IA Ql (S) Non-Reactive Normal Nonreactive [facility] Comment on above: Order Comment: Speci men Type: BLOOD SPECIMEN Ordering Facility: [facility] Address: [address] [place] [address] Performed By: #### 1 6933-4, 5195-3, 81879-0, 23057-4 #### [facility] CLIA [id number] [address] [place] [address] [place] Reagin+T pallidum IgG+IgM Se rPl-Impon 04-02-2024 Reagin and Treponema pallidum IgG and IgM [Interp] Cannot exclude recent Treponemal infection if specimen collected within 7-10 days after appearance of suspect lesions or 2-3 weeks after an exposure. Clinical correlation is required. Normal [facility] Comment on above: Order Comment: Speci men Type: BLOOD SPECIMEN Ordering Facility: [facility] Address: [address] [place] [address] Performed By: #### 1 6933-4, 5195-3, 23168-7, 29526-5 #### [facility] CLIA [id number] [address] [place] [address] [place] TYPE + SCREEN PRENATALon ABO A Normal [facility] Comment on above: Order Comment: Speci men Type: BLOOD SPECIMEN Ordering Facility: [facility] Address: [address] [place] [address] Performed By: #### T SPN #### [facility] CLIA [id number] [address] [place] [address] [place] Rh Nom (Bld) Positive Normal [facility] Comment on above: Order Comment: Speci men Type: BLOOD SPECIMEN Ordering Facility: [facility] Address: [address] [place] [address] Performed By: #### T SPN #### [facility] CLIA [id number] [address] [place] [address] [place] TYPE AND SCREEN EXPIRATION 04/05/2024 23:59 Normal [facility] Comment on above: Order Comment: Speci men Type: BLOOD SPECIMEN Ordering Facility: [facility] Address: [address] [place] [address] Performed By: #### T SPN #### [facility] CLIA [id number] [address] VARICELLA ZOSTER IGGon 04-02 VARICELLA ZOSTER IGG, QUAL Positive Normal Positive [facility] Comment on above: Order Comment: Speci men Type: BLOOD SPECIMEN Ordering Facility: [facility] Address: [address] [place] [address] Result Comment: The result suggests recent or past exposure to Varicella-Zoster virus or chickenpox vaccination or zoster vaccination. Positive result may also be seen due to presence of passively-transferred antibodies. Please correlate with patient's history. Performed By: #### 5 5454-3 #### [facility] CLIA [id number] [address] [place] [address] [place] Coding Summaryon 03-20-2024 Coding Summary HTMLBase 64 BwwjbpvaVIc3iAf+PGhlYWQ +IJ2KCDQfC09pwOFiuF6cW1 NMTElOSywgQVBQTElOSyIgb zMzII6ziEExQILd IC8+CR4tQVDtLnasiNYle3K 3mQG7D20czh8yIZnsfXV3EK CoNtLnwlnut7zjcOf2KSdhE mluOyBt NKRwlB42TUB2gV44Xu47uPW fbEGeq2velCv6VqPjJDBfXO D5lGowQZjtg4KwEHTmL61vh MAyj1H3 FZIxrAjxfYKwTgXwaPF1cC3 dNMugyktcd3tuskfyFsj8eu 05kVWtr8S9tWP1V5VkdnD4Z GJvbGQg EwddiPFGaL0bngqpy9xkape tHyZiKABdSSh5LWi3GQGexY ahEqUmLQ49HOU4SSKbrqVzM 2FsLWFs iYlnZrZ7d7A4Yk9SO0XZAbc sD7XYYRQQDWwazIJ+PC90cj 14V5ErArlfPbc0RGVnGZI3l KS8vE8p ZHUlYCpzu3I8mRA2A2IsznM zpb0ze8ctOHWtJAzhL20clA Wsy5E3MALovAC2SWGokFepI iBzaG93 Oyc+ROFovRsbs9DiGkoub9y lt1yvtFe4VfiqRRQcktHieW zbBGM6k3AjEn3yUFFvcYU7e IX7qO8o HvEiHqE3LGvdI509UaTefIF eEzwkE70bX4JykTP+PHRyPj a4JZAzzDraYX1sW7ZeMEAzo mctbGVm uEwbPX7bKTFijbesYCWeaK3 qPSVlB7t0FjNrFgI0WBlgO5 SuSSWxmdytKu88gE4bKfSjM vT2MQhs F3JjwhD5HESnoKYcKCnwKOV 0X51sp5S0LVXyGSSkLJZ4qL L9eN6jpDqcpryxoQZhzTfag mVydGlj AUzzSElwD840LTHueWalUdS vZGluZyBEYXRlOiAgMTIvMD MvMjAyNDwvdGQ+DOBkIYA6r WxlPSAn xHJeUBquCf5lqLreyOsqYU4 fXWXreytePUStrU9fBTCbqM JxxFwmLQ4dBCLuuvqfq243E iAxMHB0 PVPjrDKpG1IsoH5xAnUuANL cXSPkM8XzxLWpUOtfE236GZ ggEpA2BPHjfsTdI0DiAWNxc WduOiB0 p7C6Cx6Yr8SzgnimI6DtcFQ mKbGbYtqlVHy1I9JeUtvofI I+SB89OFQqZG34FUy7WDV0a WxlPSdi BYNiR5PbvH9cYgEpZNMxHDS kOyc+PHRhYmxlIHdpZHRoPS ocETWdCcXiuDqoFQ8uSe6jM GVyLWNv vFjbmPRvIvYcu2giQWOwILf wZD9aySavV2ToaCE3HOQel5 a0Ak87P04fB8SmhOC+PGNvb UK8xRU4 nB2hNzAeAvT5KIltW659WjM hzGTrUmopp2dsc5wkpTy2Rz F9FQAbmwMwgEhiCVY5n9XaU w65Q28f IHdpZHRoPSIxNSUiIHZhbGl jjk3jsB0cMs3+BXKzlXZ9yV H4dI3eVjDxSeY3YXzfE241Y nRvcCIv Qpman4gut7qrcYl5PcHtLFH iieEooZgiGKS1o9HmNb46A2 VvtNway7QsZzk6tb41vLOue 7I2tMT6 H3SjQFBubieftSRgnYsiWB1 cTAWjgfkrANChzV5pYBHbX8 v0QoWqMbI1HZouM4LglrM1Y GJvbGQg ZYJnhAHGmA9xobxuf6hdbjf zEdLpMIBjOHr8BTd2FHQhhQ hnLqKlVCY6HrO8GRG6fBNct W3nuSej geeokZ5gKbq+TNP9wORnsEH XCC5zVroydWW+AXMfPIO1gM glEOpuOHDpcP4qGOWqM3z1V iAwLjA1 NAlvG3EgghR3OZMunXOxBAL wiUBVyF9wklrkn6exbmvwFm XhLDHwYYd5HIp4TTEimZvrW iBsZWZ0 SoZ9VKD3sOVliF4xrIpdtiv olY7sMnx+GhmjsZlsFQY4QN c4B6AnQup1NRIrbLtxUO3oh GFkZGlu Uk1bgEajhIkmVZ0mNJLqkld sc857BvAdh2plRGTwvYBsPZ vgBXF1X72kn6Y3VVYoIMHoC DT5lRQ2 yM8mvLktykebjIFrzXjfnvR zuDqcLDmnKRbgL147DYLwwD otAiQpQPp5A6BoUvv6DQPli UvuFM9p xWGgEXviLp0msAgojNqwPY3 eINWvltfbf690EdNke6dkZA QcqFAbUAbnONX8J58xd8A9G CMwMDAw FBF2fYR6aA2qzVpvawjhtIT mdDsgdmVydGljYWwtYWxpZ2 78JOGdcOokJwNenDt6D8GuE fy4NMBn jMquAN8ihBQoJObuYl5pnOk uaCjtAD4kCJClzxcft753Me Tkb8ruFECirCTtGUhpTRO0P 29pp0Q3 LVUnTNZmJQO2rZA0iN8xpKn nbjogbGVmdDsgdmVydGljYW rhUFegG987UHErrYdwNnHql GllbnQg HFgqMAv8M0KqTeihxCY+PC9 2AESdFR88oWXfxKExs2jkqL e5HpBxQADyLQU8fXxwQFzrn 3JkZXIt J18wfFKyn1V4CWRpwWnjcQB lTiJlaSR7fH1nGMtfzwqah8 pcqnbfMcbie1elug75aY69Q 29sIHdp ZHRoPSIzMCUiIHZhbGlnbj0 ewX9xGq2+IWSfjXE3rFC2eR 9vFFDfMxM4DSkeC148GaMtx CIvPjxj d2mlq5gcfLj4XiO5TCHbtfR sqVuyORX9p4CfBu78B37vMH dpZHRoPSIyMCUiIHZhbGlnb r6rlB7l Ii8+MKGodVO1zTF8rD4mHtM nJxJ5KAicV532FnDoeTWcRd qhM88yX3TnbIL+CKYdZxt8S CBzdHls DT4llHRrMJtpOo9pHAO9NiR fBwCnHMxgA7DzTEAznafqma yjvJZ6AHEqLFYroP51Yk0tc DogMTBw yPOUlV4gztwhk1crqbhxAgI wLGOoQUp3HXo5CCTwbPgnZf AnQQO0JzE0FHM6yWTsmL5uc Glnbjog sQ7rD1MjNJNwbmzuWg65mP0 gSuNdLpR9UKuzOmf+TUNDQU 5OLCBIRUFUSEVSIEVMSVpBQ kVUSDwv dGQ+AEFsCTT6hZsiYDtfHJL mgR7qLCRgI2e8GlZfFoA9JW ypU3FbKMFgejfsTk14nM1mY iAwLjA1 QDdwB3DhrhN5DKOknAFgDMq qKML8I74bq4L6VECuDLUeIG M5aSM2sW5qkXrbbbcdkQAoo DsgdmVy bItkEUmvJMhxP202DIKovNc dHcWeWbR0VcH3RAC4O8DeUu r2GASlzTjjTC9mmRKaWYazC y4dvIbw gUeuPE6nQWUblvknWZIwtB0 nUBDesLBazQnaIO4zSKQayi abd136PjIoRFI2DOGilLAqR 0JuiH0k UpMhZDKdSFIcU0QadPSjFRy aE075CCqvSzF1MLUxusXtZ7 KrJBWgkOhzIeD1q7V7Cd7tO SBZZWFy czwvdGQ+INHvOZU3gGduJFr qPUTwqZ0wUXUxT1i3OdQpRp X5BRevQ3XmWEEulzllXy01u Z8bTxQi KqO9EErpA9RuuoG5EAUivEB bPHrcKMJ3C61yv9W6APUbSZ AdHRJ8xUF0tQ5twSjimscbb GVmdDsg ruHkmYzhSXekKEbfH555XOX vcDsnPkZFTUFMRTwvdGQ+PH RjXIV2aLvlZCxaQGUxyN0tM YXeS0z5 IyDcLbZ4RMjnS3RxURGkcpy vRp16cK5kUlRhOaE6OSbuX6 RxyfC5EKJznZGcKUxiQRE9R 62ra9D6 KPGnBCPzHWT4hGF7pP8kaCh nbjogbGVmdDsgdmVydGljYW dnTRioE400AJTtoDhjFfDoX 3Vycmlu NtIYzDTkVIMwAE97ST42SG4 4Q2BcBpzzcHRftMO+PHRhYm xlIHdpZHRoPScxMDAlJyBzd TqtRW2f Ux1uGSVaLKIbhCueqZYhHkY cc4xvONOwESptOJ8xuFggK3 KqsHC9NWOta1l4Qp78S22zA 3JvdXA+ PWVbqAV0hTH4iF4uRcNxQtL 8SMfvJ824JhIaeQLkXodgn0 mcv1dhbZy5WwGcDBQlbuBqb WduPSJ0 v3UbWc18D04dNXzqPECgRZY bMYGcZCYdnBxxao4koJ5uXx 8+CFDvsWU1xJL7qF8oHjBkU uE7VBbq L315QpEfrWEdXobkK11kC0D vdXA+PPQbGmp8BQCycMqtKN 9qgBUaZHynIi0zUWV4GtIfN jIwMGlu L5WjRWPvybhdljrjtHO0PGT wWYAvbK69Qj6tiUkrDw8zUM NpBOM8BGTikJSrU0FhdM7wK iAjMDAw UAEyJ8GhsZEfDEjxT426EIu tFfJ7XMSslqTnT3PrHDUomW dfToN1x2H6Ao1QtYwrlZOtH B0iWuPe VSa4S2EwFye4ZJEmaRraXO8 uiDOiWHhcLg0qxEtmfTauVF 0mULQhsijtz450NuYuw3biI DEwcHQg BBpgNPK9R01ek2H7LXIlGRC lMSL1gSQ8dS2ycRrjgguwcO VmdDsgdmVydGljYWwtYWxpZ 246IHRv zWwqCwDLQaj3W2CnMqc8ZYF uaXddAJ8xmYGjNQeqLv3trD oekSvkYF4zFDEccuypp533P lZeh2zw SWPcoFQkRSsfWJR2K66rs4I 3HYMrEODuFAS9dRP4cP5beC lnbjogbGVmdDsgdmVydGljY WwtYWxp Y995QABqlVlsEk9GZsg4N9Y mIui6XKJxfVvgTQ6khUEbVJ zfFg9bwAtsfFkoZD0dGKQgq lzrx671 VaMma0txNYRseSJcFFgkIQC 6Y60fy4G0EKViVJLfCAZ4sW K1sY4fjAcnusnxnEKesUcgc mVydGlj UUxkLWheH414IHBlfBluQeQ heWVyOjwvdGQ+AL90en87J4 HyVzvmLzz3TQVmEPJ1fPB4h O1eDNTs JSc (more content not included)... Normal [facility] Provider Orderson 03-07-2024 Provider Orders [id number]#1.00 [facility] .Auto Diff 102-29-2024 Auto [place] % 3 % Normal 04-29 [facility] Comment on above: Performed By: #### 1 [id number], [id number], [id number] #### [facility] (DEFAULT) [address] [place] [address] Baso Abs# 0.0 x10 Normal 0.0-0.2 [facility] Comment on above: Performed By: #### 1 [id number], [id number], [id number] #### [facility] (DEFAULT) [address] [place] [address] Basophils/100 WBC (Bld) 0.3 % Normal 0.2-2.0 [facility] Comment on above: Performed By: #### 1 [id number], [id number], [id number] #### [facility] (DEFAULT) [address] [place] [address] Eos Abs# 0.0 x10 Normal 0.0-0.4 [facility] Comment on above: Performed By: #### 1 [id number], [id number], [id number] #### [facility] (DEFAULT) [address] [place] [address] Eosinophils/100 WBC (Bld) 0.1 % Low 0.9-4.0 [facility] Comment on above: Performed By: #### 1 [id number], 0649052, [id number] #### [facility] (DEFAULT) [address] [place] [address] Lymph Abs# 1.5 x10 Normal 1.3-2.9 [facility] Comment on above: Performed By: #### 1 [id number], [id number], [id number] #### [facility] (DEFAULT) [address] [place] [address] Lymphocytes/100 WBC (Bld) 16 % Normal 14-48 [facility] Comment on above: Performed By: #### 1 [id number], 8471110, [id number] #### [facility] (DEFAULT) [address] [place] [address] [place] Abs# 0.3 x10 Normal 0.0-0.8 [facility] Comment on above: Performed By: #### 1 [id number], 3113741, 0976131 #### [facility] (DEFAULT) [address] [place] [address] Neut Abs# 7.8 x10 Normal 1.5-9.2 [facility] Comment on above: Performed By: #### 1 [id number], 8298695, 8142305 #### [facility] (DEFAULT) [address] [place] [address] Neutrophils/100 WBC (Bld) 81 % Normal 44-88 [facility] Comment on above: Performed By: #### 1 [id number], 8470204, 7448571 #### [facility] (DEFAULT) [address] [place] [address] CBC w/ Auto Diffon Erythrocyte distribution width (RBC) [Ratio] 13.9 % Normal 11.5-15.0 [facility] Comment on above: Performed By: #### 1 [id number], 3998455, 8572675 #### [facility] (DEFAULT) [address] [place] [address] Hematocrit (Bld) [Volume fraction] 45.3 % High 33.7-40.4 [facility] Comment on above: Performed By: #### 1 [id number], 9450553, 7513782 #### [facility] (DEFAULT) [address] [place] [address] Hemoglobin (Bld) [Mass/Vol] 15.5 g/dL Normal 11.3-15.9 [facility] Comment on above: Performed By: #### 1 [id number], 4845322, 7233620 #### [facility] (DEFAULT) [address] [place] [address] Man Diff? Auto Invalid Interpretation Code [facility] Comment on above: Performed By: #### 1 [id number], 8445416, [id number] #### [facility] (DEFAULT) [address] [place] [address] MCH (RBC) [Entitic mass] 29 pg Normal 24-34 [facility] Comment on above: Performed By: #### 1 [id number], 0673523, [id number] #### [facility] (DEFAULT) [address] [place] [address] MCHC (RBC) [Mass/Vol] 34 g/dL Normal 26-37 [facility] Comment on above: Performed By: #### 1 [id number], 1920549, 6738122 #### [facility] (DEFAULT) [address] [place] [address] MCV (RBC) [Entitic vol] 86 fL Normal 81-100 [facility] Comment on above: Performed By: #### 1 [id number], 7844462, 5311525 #### [facility] (DEFAULT) [address] [place] [address] Platelet 213 x10 Normal 138-427 [facility] Comment on above: Performed By: #### 1 [id number], 9265255, 4548207 #### [facility] (DEFAULT) [address] [place] [address] Platelet mean volume (Bld) [Entitic vol] 6.8 fL Normal 6.3-10.2 [facility] Comment on above: Performed By: #### 1 [id number], 0470267, [id number] #### [facility] (DEFAULT) [address] [place] [address] RBC 5.28 x10 Normal 3.70-5.30 [facility] Comment on above: Performed By: #### 1 [id number], 9464521, 9821244 #### [facility] (DEFAULT) [address] [place] [address] WBC 9.6 x10 Normal 3.5-10.5 [facility] Comment on above: Performed By: #### 1 [id number], 8152639, 7155872 #### [facility] (DEFAULT) [address] [place] [address] Ferritinon 02-29-2024 Ferritin [Mass/Vol] 20.6 ng/mL Normal 12.0-150.0 [facility] Comment on above: Performed By: #### 1 [id number], 7214974, 5059064 #### [facility] (DEFAULT) [address] [place] [address] Iron Levelon 02-29-2024 Iron [Mass/Vol] 61.0 ug/dL Normal 28.0-170.0 [facility] Comment on above: Performed By: #### 9 [id number] ####[facility] (DEFAULT)[address] [place] [address] [id number] 02-28-2024 HNO ID: [id number] Author: IGNACIO GUY MD Service: ? Author [...] for three cycles. They will meet with [employer] to review the IUI checklist and sign consents. I spent a total of 45 minutes on the date of the service which included preparing to see the patient, setm-in-mvty patient care, completing clinical documentation, counseling and educating the patient/family/caregive r, and ordering medications, tests, or procedures. Ignacio Guy MD [facility] CNOVon 02-28-2024 CNOV Office Visit (REIBD) SANDERSJAZ ANDERSON ([id number]) 1995 F Date Time Provider Department 02/28/24 [...] OB History Obstetric History No data available ACID CONCENTRATOR HISTORY: Patient's last menstrual period was 02/18/2024. 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 They will meet with ORTHOTIST PROSTHETIST to review the IUI checklist and sign consents. I spent a total of 45 minutes on the date of the service which included preparing to see the patient, gxkp-xl-cbub patient care, com (more content not included)... Normal [facility] IGP,APTIMA HPV,AGE GDLNon -2023 AGE GDLN ACOG TESTING Note . [facility] Comment on above: TESTS RESULT FLAG UN ITS REF RANGE LAB Clinician Provided Cytology Information Source.............Cervix;Endocervix No. of containers..01 ThinPrep Vial Age Tayler SINHA Amaya... FLAG LEGEND: L-Low Normal,H-High Normal,LL-Alert Low,HH-Alert High <-Panic Low,>-Panic High,A-Abnormal,AA-Critical Abnormal Performed at: 01 [facility] [address] [place] [address] Dagmar Love MD, IGP, RFX APTIMA HPV ASCU Note . [facility] Comment on above: TESTS RESULT FLAG UN ITS REF RANGE LAB DIAGNOSIS: 02 NEGATIVE FOR INTRAEPITHELIAL LESION OR MALIGNANCY. Specimen adequacy: 02 Satisfactory for evaluation. Endocervical and/or squamous metaplastic cells (endocervical component) are present. Performed by: 02 Edel Sewell, Hide House Supervisor ([facility]) . 02 Note: Note 02 The Pap [...] <-Panic Low,>-Panic High,A-Abnormal,AA-Critical Abnormal Performed at: [address] [address] Dagmar Love MD, Performed at: = - [address] [id number] Tour Agent: Dagmar Love MD, Phone: [phone] Performed at: [address] [id number] Tour Agent: Dagmar Love MD, Phone: [phone] BRUSH-SPATULA CERVIX ENDOCERVIX [facility] Coding Summaryon 02-20-2024 Coding Summary HTMLBase 64 XgmsyxgzBBz8xAt+PGhlYWQ +ZT4TMYXzB88tjGXxjM8lS2 NMTElOSywgQVBQTElOSyIgb dHqYB9oiBNdAPSp IC8+KU8fZDCxBvzsmNCbt9Z 3hNR9L19ooc5lQRqsaRR6XE JnKrEuhwwsh4imfBr4YQdxX mluOyBt KWWrcC19THS9eL43Ig83qDP nmFLdg3lqfTy3TfSgATIuMH A5dNkoRXktq0XpDCXrX93wj HGwy3K8 FCPnhAqfoIQuJeSxaPP6qX8 cFOozswgvk9czkgvtRnb7it 81nOGwy4Q2uGL1S5NcpoZ0N GJvbGQg JcjvhEFFkS1iypjip4dsudp tKrYxEVHaUZa3PQy5VFMmpX boMoDhGZ08IOX8SHBnuyXlR 2FsLWFs xJruYxA1o9D3Dd3XR8QBTlw fJ1EJHZSYBUgnuZV+PC90cj 55E3DaCekqZud3RMEeIXG2a TX9eS8h MHYyCLjgi9N0jIN7W5AiyhV rkn8fk2ylIVPeQYjcW50utS Yjp2O9RGXmuAF8IGVjuMueS iBzaG93 Oyc+WTVnvYmnd1HyGxkza5t dn1aigXs4NsfdAODobbNtvV tzTZG6s1VqZw0jXAAfwKI1u SC2sE4c JqXiJiX4RXyvD852TbPqlAL xUvecN98wP1EblET+PHRyPj q1MCBywQkaZN6dF8PdFFLrj mctbGVm bTdnZI4kFOBxnomiMINcsR7 xNAKqK2z2LdYdDjS9JNyiV4 KvMCAqkntgIt83cZ1zPoHuI nW7JJtk M7CnyqS7YKRkeXXlEYmfIIU 2B29lb7J1BODiEKNtJLC8iB F3yI4qbMnhiibdySQruVdkn mVydGlj QVvsRUgfN017WEEfgEapSyE vZGluZyBEYXRlOiAgMTEvMD QvMjAyNDwvdGQ+PINcMVK7t WxlPSAn gCLlDPxnHn2cwVteiGecXR0 bJCEgqgefHRUqsT2kOKKxiL QlgPufFZ0vYSEejpktq335A iAxMHB0 GDQvwEVzH8HaqU1vExUyHVN bROLoH3DcvDRdAXpfF991JM sgMxC7GBYhuuBdD7MqDIFtz WduOiB0 v3Z9Cs0Kf3YhpwqzJ7AheTI gXbAgRgegNGw5B9WdQyqlpB I+CM77XOQaSI88QQb2VEE1z WxlPSdi UDOoR8CwfA1rWyPwBPXaPPE kOyc+PHRhYmxlIHdpZHRoPS ovTFApTxYsgKrtZZ0xSc3xZ GVyLWNv nZqstVDoSnEwj7afJXUcPRa uAT6goHvmN5KqtXQ6XQYsr6 u8Dy57U63oY8FenWT+PGNvb QT6oEF6 lF3lFsLtQkS6KJvfG098CzH tlWAcUjfpn7oua6vxnKw9Mg U5IWFgnxCdsXkxGCU8a8ClA y97U00s IHdpZHRoPSIxNSUiIHZhbGl xjs2btH4mDl5+IGOhqVM7bZ X9pG7fQbEpZaC9KYowF683P nRvcCIv Jlgkl4hkv3enrKi2RwEnNMV odrGxnWwcXAZ2o0FmWc40D9 TxuRknj4LwXnb7yj27tHHpd 2U3kNB1 P6PnDDNlbletwUUhlTpfIS2 gPXTlsqekQMHnnJ2tVTUoE8 a6JyTmMrN1FWhwE6CzgmX3M GJvbGQg XGGjeZEJyQ5hnidph0jcweu aPrMyYEYjKUl5HUb3XTRnmU sjLpAqZYG3VeB0YSV7eLAkv M4bsXny blcftP7gLty+EWR3cEQriSJ ZKF3bOdgfbHE+XHIfEWR5xI ovAZniAJNgnZ7eTEFgQ1u1B iAwLjA1 TXvzT2GdqxR3DCDqrVRxUKE laJGYwD8nihhxd0kleufwCs HrXMExWHe4SNj6GRAilXtwG iBsZWZ0 BgY9YVN7cYAstX1ujJsrmov oqG3rNny+InbleZusNEL6JD b1E3SuSve4RTZdnHsrUQ8uv GFkZGlu Zd0yhGnwbMzrGG7pHEHecqn es557PqYwu4amCMSesGDhWC uuVAL7B14om4I9QDXpEBShQ BA0lCW8 rQ9ltGeyizwlyQOghOlafyO nxFuwOJvdIQsrQ309XVYakO xcLxHrLWz5I7EtXfy6ALYqk PkaTQ4c ePWoOOksAy3siXiqgSbkBN6 kWADvzwavw400EiVph9deDQ UuyTYfUIlnCHU2Y95ut6R7Z CMwMDAw DKL6nHE1jV4vuVgzvryioYY mdDsgdmVydGljYWwtYWxpZ2 77PTVgsQchNkLhwAs5O5OzO ks6FUDv oMoqCU0eqKHpXLwlIc6wdJi cpGwcPD7qUBHeebfbk681Hm Tdj2diZBLldBVvYRdcQAC8D 73ek9D7 YIFiSUPuPLI2eFZ6fH9zvKn nbjogbGVmdDsgdmVydGljYW uzUYtcF549MOSfdQhaHwGpa GllbnQg IDnuLOm4Q5WyHyshiTI+PC9 8MIPaUS61eIOrcNVsn2peeG k5LbNxWWVuZDV1kSztPFppk 3JkZXIt D90axAHsd6M3AHLtwHudbZJ pQcSrfHJ2vA5eJXwpxaesx8 ujrffvJqavz4aeri21gF17B 29sIHdp ZHRoPSIzMCUiIHZhbGlnbj0 tzU4qIa7+NQFcbMA0yIH7kG 1dVMXuTiO5WJfhF438LmUak CIvPjxj a1uqb4bofWf5EvU5MLFlphP hbSvyJYK9h0XjWh44A49sHD dpZHRoPSIyMCUiIHZhbGlnb f3qeL4z Ii8+XJRmbTM9sSV0lJ1mNyZ kEsW0TNxkZ190YbBcsINnHr bdX80iM7VboPK+EGNtYsr4J CBzdHls ST4qsKUeKDbfDe8vNGY9NcF fPzLsDBlcZ7IoITAfzyrgpl ypbLL1NBBsMXUgvT76Vp2dh DogMTBw pSZOuF9wbwbcu2nheuzxEwS zJFKyOSp1DLh3KEWkqRuaCz AyIRM4VqO1BSS2mCVuxP2jo Glnbjog pN8lP3ZfJVMnnadeIr50bW5 lSmXtNxD1TRljElj+TUNDQU 5OLCBIRUFUSEVSIEVMSVpBQ kVUSDwv dGQ+RTJsFOF8lRysMGumPLR ohC6iOTIxR2g8HdOjAnP5NR pyN7DtNZFccqjmUk93kF7dJ iAwLjA1 AJefR9HnjmB6VAOpmBXxGLk nCTR6E91gl0O5BQSnIAUsTL K2nMS7eE5ocBgshvfgnAObj DsgdmVy mWmhJQxyFIidS377PNYkaPq lRlKkYnB9IpP9ETA1W7BnRd i3PEKdqYiyZO5jkRXiRHjaR q0oxTnr jQhnSN3yPLJugkltPUVrkD6 bSVLieSFwdDnoBW3oUWRpqq uke385OhYhVRS9UDKseYUiC 1OgmB3f SmJiVZHaWFScB9XlmVBpDQj wA265MGhkVrI9PJWntoNfJ5 LdRSIbuCkfXyI3s8X3Dr2hW CBZZWFy czwvdGQ+PJFmVWQ4cVwrFYi vZMXvvD8sYLOrV9q4AwCsTh T3FTudN5SqUUIewnfoAb81e S9iZuSv YaC0PNffL2AhgtC0VDIzoQG kCSbiQVF6O49fh1R8KCGgPQ TxPGU1iRQ0oW0cnZtcjmhca GVmdDsg ztAizTkhEVjkGNwtD516DLP vcDsnPkZFTUFMRTwvdGQ+PH DaKWS2iAtkYYyzOVUbdY2xR WYxG1v3 QiChYcL3VDhoD1RlBTMcqjm cTp90cI5hTgJiIuK9VZxzM8 ZvyiO6EBKhbAGyTWxbYVY5X 94mx5Z6 JKJsTCQhUCJ4tXB5yS2odVj nbjogbGVmdDsgdmVydGljYW ulFNouV261LUXzzAbkNrTyF 3Vycmlu XaHEbMXaPQPtRC68KK72LU4 1X7SiRyczkCIyvJX+PHRhYm xlIHdpZHRoPScxMDAlJyBzd HclXA6a Gg4dMCPiEMOraPmzgICtOpS tg7qqHSQyVNncOQ3giZqqM8 RtbJJ9MBNut9t7Ct83P72eU 3JvdXA+ XSNjtDT9jNA1qW3lOeAeCgF 0TAfiN307GbLzxOJnHnkdk6 ayb0icaBk6PsTrMMVahtYxv WduPSJ0 b8IcWx87G71wFRdvOQVrGPM pKQChPXOfgLlcpa5kxE1gZt 8+JFLrsWW9wHN7uW6wKnQbY hG2YFsc C746DoYzcZFoNxfsK01iJ5R vdXA+QMVdLvw9JPDgtRxsMU 5jjCAzVHytWq9pCFO8KfPpX jIwMGlu T7XoZRAdunoflkqjpLC6RBI jIJYedF66Wz8wfPkvYk5mMU RyWOD7TXVtfDLuY0LtuP2rF iAjMDAw GBLuQ3QbtODpEBsbR902GYd hCuJ8QVAgvnIvB1EqDLLviF hgGmW1v2Q2Lx1PwVqwsSIlD U2yTlPm OHm6T0HqBwc4TRChoGkoCZ8 ncDHaLXwfNs7ctCwwxAuvIV 0vCTXjtgngf191ElEgi2cmW DEwcHQg VZlyCZX3A05gs2K4RVMaUAG iBFZ1iGH6gN3lgSjbckaemY VmdDsgdmVydGljYWwtYWxpZ 246IHRv aElyVrSYOft3D3QqRrc0HCI oqFwhBG3ikKYoBDcbBh3wuY kasJlfIZ8mAVGrqrcfp126E xRvm4ic KWEdsTBqFCbdIFH0K00ou0B 8HIDeWAXdTNN8kYL2kT8qwZ lnbjogbGVmdDsgdmVydGljY WwtYWxp Q637GFXrdGqcFm6XSfc6O0N zXml6GQMkdJkoRI3guGXpII awZf6nuZyddJtaFI2zTFSco ymyh609 AbHbg9gsGNAxbBInPKmrVCS 2Q15dv7P1BTNfAENlWVM4hK G6gM8ujQnequpnfZPpmGlgf mVydGlj VQpsHDsjE690TSIhaZdiRcO heWVyOjwvdGQ+GQ19qg72F3 CzNeyePmn8WPUdROC7iQY7k B0xFLRq JSc (more content not included)... [facility] Human papilloma virus 16+18+ 31+33+35+39+45+51+52+56+58+59+66+68 DNA [Presence] in [facility] 02-20-2024 HPV 16+18+31+33+35+39+45+5 1+52+56+58+59+66+68 DNA Probe+sig amp Ql (Cvx) Human papilloma virus 16+18+31+33+35+39+45+51 +52+56+58+59+66+68 DNA [Presence] in [facility] . [facility] Comment on above: TESTS RESULT FLAG UN ITS REF RANGE LAB DIAGNOSIS: 02 NEGATIVE FOR INTRAEPITHELIAL LESION OR MALIGNANCY.Specimen adequacy: 02 Satisfactory for evaluation. Endocervical and/or squamous metaplastic cells (endocervical component) are present.Performed by: 02 Edel Sewell, Hide House Supervisor (ASCP). 02Note: Note 02 The Pap smear is [...] High <-Panic Low,>-Panic High,A-Abnormal,AA-Critical Abnormal -----Performed at:[address] [place] [address] Dagmar Love MD, Ignrnfluj at: =G - [facility] [place], [place] [id number] Director: Dagmar Love MD, Phone: [phone] at: WB - [facility] [place], [place] [id number] Director: Dagmar Love MD, Phone: [phone] No Panel Informationon 02-19 Reference Lab Test Patient Age Note . [facility] Comment on above: TESTS RESULT FLAG UN ITS REF RANGE LAB Clinician Provided Cytology Information Source.............Cervix;Endocervix No. of containers..01 ThinPrep VialAge Olafo SARIOG Amaya... FLAG LEGEND: L-Low Normal,H-High Normal,LL-Alert Low,HH-Alert High <-Panic Low,>-Panic High,A-Abnormal,AA-Critical Abnormal -----Performed at:01 =G [facility] [address] [place] [address] Dagmar Love MD, .Auto Diff 02-06-2024 Auto [place] % 6 % Normal -12 [facility] Comment on above: Performed By: #### 7 [id number] #### [facility] (DEFAULT) [address] [place] [address] Loretta Abs# 0.0 x10 Normal 0.0-0.2 [facility] Comment on above: Performed By: #### 7 [id number] #### [facility] (DEFAULT) [address] [place] [address] Basophils/100 WBC (Bld) 0.3 % Normal 0.2-2.0 [facility] Comment on above: Performed By: #### 7 [id number] #### [facility] (DEFAULT) [address] [place] [address] Eos Abs# 0.2 x10 Normal 0.0-0.4 [facility] Comment on above: Performed By: #### 7 [id number] #### [facility] (DEFAULT) [address] [place] [address] Eosinophils/100 WBC (Bld) 3.4 % Normal 0.9-4.0 [facility] Comment on above: Performed By: #### 7 [id number] #### [facility] (DEFAULT) [address] [place] [address] Lymph Abs# 2.4 x10 Normal 1.3-2.9 [facility] Comment on above: Performed By: #### 7 [id number] #### [facility] (DEFAULT) [address] [place] [address] Lymphocytes/100 WBC (Bld) 34 % Normal 14-48 [facility] Comment on above: Performed By: #### 7 [id number] #### [facility] (DEFAULT) [address] [place] [address] [place] Abs# 0.4 x10 Normal 0.0-0.8 [facility] Comment on above: Performed By: #### 7 [id number] #### [facility] (DEFAULT) [address] [place] [address] Neut Abs# 4.0 x10 Normal 1.5-9.2 [facility] Comment on above: Performed By: #### 7 [id number] #### [facility] (DEFAULT) [address] [place] [address] Neutrophils/100 WBC (Bld) 56 % Normal 44-88 [facility] Comment on above: Performed By: #### 7 [id number] #### [facility] (DEFAULT) [address] [place] [address] CBC w/ Auto Diffon Erythrocyte distribution width (RBC) [Ratio] 14.0 % Normal 11.5-15.0 [facility] Comment on above: Performed By: #### 7 [id number] #### [facility] (DEFAULT) [address] [place] [address] Hematocrit (Bld) [Volume fraction] 41.7 % High 33.7-40.4 [facility] Comment on above: Performed By: #### 7 [id number] #### [facility] (DEFAULT) [address] [place] [address] Hemoglobin (Bld) [Mass/Vol] 14.1 g/dL Normal 11.3-15.9 [facility] Comment on above: Performed By: #### 7 [id number] #### [facility] (DEFAULT) [address] [place] [address] Man Diff? Auto Invalid Interpretation Code [facility] Comment on above: Performed By: #### 7 [id number] #### [facility] (DEFAULT) [address] [place] [address]684 MCH (RBC) [Entitic mass] 29 pg Normal 24-34 [facility] Comment on above: Performed By: #### 7 [id number] #### [facility] (DEFAULT) [address] [place] [address] MCHC (RBC) [Mass/Vol] 34 g/dL Normal 26-37 [facility] Comment on above: Performed By: #### 7 [id number] #### [facility] (DEFAULT) [address] [place] [address]482 MCV (RBC) [Entitic vol] 86 fL Normal 81-100 [facility] Comment on above: Performed By: #### 7 [id number] #### [facility] (DEFAULT) [address] [place] [address] Platelet 196 x10 Normal 138-427 [facility] Comment on above: Performed By: #### 7 [id number] #### [facility] (DEFAULT) [address] [place] [address] Platelet mean volume (Bld) [Entitic vol] 6.8 fL Normal 6.3-10.2 [facility] Comment on above: Performed By: #### 7 [id number] #### [facility] (DEFAULT) [address] [place] [address] RBC 4.84 x10 Normal 3.70-5.30 [facility] Comment on above: Performed By: #### 7 [id number] #### [facility] (DEFAULT) [address] [place] [address] WBC 7.1 x10 Normal 3.5-10.5 [facility] Comment on above: Performed By: #### 7 [id number] #### [facility] (DEFAULT) [address] [place] [address] Ferritinon 02-06-2024 Ferritin [Mass/Vol] 15.8 ng/mL Normal 12.0-150.0 [facility] Comment on above: Performed By: #### 1 [id number], [id number], [id number] #### [facility] (DEFAULT) [address] [place] [address] Iron Profileon 02-06-2024 Iron [Mass/Vol] 72.0 ug/dL Normal 28.0-170.0 [facility] Comment on above: Performed By: #### 1 [id number], [id number], [id number] #### [facility] (DEFAULT) [address] [place] [address] Iron Sat 19 % Low 20-55 [facility] Comment on above: Performed By: #### 1 [id number], [id number], [id number] #### [facility] (DEFAULT) [address] [place] [address] TIBC 384 mcg/dL Normal 250-400 [facility] Comment on above: Performed By: #### 1 [id number], [id number], [id number] #### [facility] (DEFAULT) [address] [place] [address] Transferrin [Mass/Vol] 274.6 mg/dL Normal 192.0-382.0 [facility] Comment on above: Performed By: #### 1 [id number], [id number], [id number] #### [facility] ([facility]) [address] [place] [address] Coding Summaryon 12-11-2023 Coding Summary HTMLBase 64 LydweflqNTd2nOm+PGhlYWQ +AN6CRTIzV73jwZEplN3hN4 NMTElOSywgQVBQTElOSyIgb tOyKU2knNUiODOr IC8+HY9pXCStBcihaXRgt4I 7pIO0M21umj5fFKaxoIM4QP ZeKxUnsmjtn6njfZr3HYpbD mluOyBt NEUxkP28ELW3jY18Mb48bYA rgNMqz8ozcSt0TeRpKXHxDQ W0oMniSIlmi4TvTPReP62wj TIpz1O4 ENIezWpqxRKaAeAppDS9bZ9 dLCvkthfze8nbdgjcTaf3ke 51iRDeh9K3zSI0E6GywmK6B GJvbGQg IaswcUQQtK5duwavd6plmqj zZsMnHDVtSDq1KTb0XQMbxB cgUeWkIV86VZN9QVDovgNnX 2FsLWFs tYqmLkK9m1Q9Pv2RY4WSAwr nK0KVYCCDOQbxhQH+PC90cj 22T1IiUkcnTzj3BHFdAFD5s QN7cD7a WFLmKAnhl0M3vOV1M8BcavH cau2fh7mcKWSrBFlxQ46tnY Vqa3C4ZSPezSM2QEJlhBxlQ iBzaG93 Oyc+AGChkEgra6UhHrwmr6w gs7xsuHs9RjwpHYAgmsHgpY gdRID1b2QqMu3vKURghRU1g XP6xS5o JbZnDaD2KNpnX111QzDgpKX xPoinT31mU3XbcZO+PHRyPj f5UQHyfDsvWM4yW8LaSKXrl mctbGVm dCyiAO4xUYAuzzgbMIBhzS8 uBWHbY1u5AwPkRdB0NYipD3 AmJFVvixqpMz73fE8jBwYjF rQ6YCuh P9TobkF2KZTttNKeKNrcITW 6B64md0U0UTIoZSThBRH9hX O3pD3njNgalkssuFRlmVprg mVydGlj FMfsTLxlF407SWIrwSnqYtX vZGluZyBEYXRlOiAgMDgvMj UvMjAyNDwvdGQ+VPVhFGM1a WxlPSAn nYCkBWotXy0gjOiijWzhPN1 nJJDqldoxMRFzoM0cSYBhsU HmxSbnTY2fBFMlyfjrb149M iAxMHB0 DAGwqTFvS7RlfV3yAyEmGLH oTEFuZ5NotSMgPFxgT941QL icMeI1YRQhwrVfZ3JcLQRej WduOiB0 l2E6Tz2Zm8QopgehR3GvfFD zBsPiVozeLZp6A1TwEqdfiA I+AZ90NJCbBA50TBg5DSU9h WxlPSdi CCLoR3YekE3rUeSwFJSwDAY kOyc+PHRhYmxlIHdpZHRoPS luDOZnJvMdmZvyPM5lAw9qO GVyLWNv iMmccCBzOqFgr5ioPGOfVKd bGH4jsPduX0FqhFW1UQSxp0 i4Tf68G25sL2SgyQK+PGNvb CP9jFB4 bU9uQgCcKlV5MNnuO356ThZ trXNuKbcdc9wca3tmsRn7Yb H2JHSpyiIilTvgSJQ1z9AzO j99G73x IHdpZHRoPSIxNSUiIHZhbGl mwj1fyX2pMs6+WEQbeSW2oP D6hV6bWhInBoZ9QHlkF384K nRvcCIv Mhrdq5chl1iybRv3FpNdUNI lixQuwFidNRG4l0WvQj29W4 OjyHyfl3ZmAou6tv08wSCji 8K1zXV2 R5LrDMLwnkoysCLbiMsyKC7 yCKKjgpiySPRsdS4sHREsF7 k2VyOfHtR2OMrmR1QipoP1B GJvbGQg EXUglVOIbS7aiausf2nxiol wFbDgLNPxXIl1YKt0UBOopM yeGnYkOXV6XpE3IGM3bTEuv I9mqStb kdjswA7dHwu+BHU3uRYpjOZ FBJ9lPusrgMW+PKGbVMA5bS clCLvoZFFruL0qWLFlD6z1K iAwLjA1 IJfpJ1EruyG9RUPahIFsPSI vtBTLgI8zvefmt7ohjpixId DlJVFuWLa0CWd8WZKriJbjP iBsZWZ0 GlK5RQU2dVKnjN9jpBtlkwy wfP7aIii+HlahrQrnFMI9IV t2B6DySxu4FYOleEfkHF0zi GFkZGlu Jh8opVvyjMlbOH1vZTCfjkl js803TdHpn6omNDEzpIOiYJ svVFY6U42lz7Z8QKEoZZKnG HD5rHG9 zG3lnIasiadngFNvvOggnpE yhTdhWZunYGrfU857LEZfdQ fjDqAsKLd6A7PmCua3SQYxx GsqNU2f vMMjZBnmVu8uxOtapWdxMA8 lFAEofovps630YfPxg3biRS HmaRMzDPxdPCA1V50pf2W8F CMwMDAw UUJ4eLD1dK8suJppulreeTD mdDsgdmVydGljYWwtYWxpZ2 63SLZcjHcbUiPtrPq7Q3LmB wq0IJTf cFnxPG3beLYiLLvhPe6aeMo rxTgoYJ3kPTWjqcgrg498Hb Nvb9goYFCdfEVvJVxsBJN4X 84zo1J3 OSYoKERtVSV0zVT4rC7bvZs nbjogbGVmdDsgdmVydGljYW vhCOngD375ARXaxTdcLuHji GllbnQg OFncMAl8Q3CsPjwyxZJ+PC9 1XVDcIC93oERapSAnm4uzmJ j8HbOtXNIpFPT5qAkgJIowd 3JkZXIt U47qpPUcc8N4FBHbaWetnOV mUbColGU1yJ4nBZfvrmzfr2 kentzrPpfpa1cuzw86kY56G 29sIHdp ZHRoPSIzMCUiIHZhbGlnbj0 ukM5iUx3+AAHfhUM4jUV7fH 3kCWCyFsP2QBmgR005MaYji CIvPjxj s1urs4hnfHn8TzA9ILMspoR mdWqiIYH6i8MwUk76M78sDA dpZHRoPSIyMCUiIHZhbGlnb n4slD5o Ii8+PSAtzDZ2lOC4tJ9hYtP cVuT4ULijN539VxRozYLzMo dgX13nU9StsIV+FBBdOdu2Z CBzdHls YC3amUZpNUguIu4sWFI8EgZ oDbDsLYxzJ8MoXVCwvwcksj eaeMQ1ZNUaDKFbtD44Jv3vt DogMTBw dIJByT0jafzyn1dhddgyYbV fZPIcJIk4TKi9FRLolFcpIp ZqPRI4PtP3BPC4yVYshV6yb Glnbjog vY3oM4GqSJArlonsJc10hB9 nSgYlVmM0NSyzTzh+TUNDQU 5OLCBIRUFUSEVSIEVMSVpBQ kVUSDwv dGQ+XKLwIRH6lKwcRSzvDMQ slO3jWUNeH9c6BgFlXtV7OR eiX8GdFYTahmzhHm48oB5fI iAwLjA1 DVruG8FrawC0RKOaoGNnNUj bXNU8C31nu3R8TBEqFFWxVB H1fQU3yI7uvAcnjlvnjCZli DsgdmVy xVzrBOjcXZmxX766HUNtuSf dMvHySwH4UoC5KXC2J4VbTb h7HNGlsZdxVA9xkBVrYDmzG a3duKtf tBobEV4oYTPcdrofXSSoeV4 dUVCbkXGwlGdkKL1xRIRqaq bnh889ZkUqSSU8KKXunBKrM 4HfyF1i KsUfOHYnWMVaA1KugOMqZZe wP211KKucDzD2JAPopyHyM9 UtJMKwoBmbDwD9p2A8Eh6lA CBZZWFy czwvdGQ+VTQdMZW9fMxvKEs sMHZjwU7lDGBmL4q1YzQzYh J0NHhsA1GyIMQudvhaJd59a P1eQcXp PaM4SSqcH8CioqY9KJDgkFJ dAXdlYPM1M03ba4E1PMHpCX WzYYP0ePT2nF2nfRgntxwyq GVmdDsg gmUdeDlyZAvuTEmfN684TGM vcDsnPkZFTUFMRTwvdGQ+PH JiCNQ3tLbeHOagULMyiE1qJ UBeK1i7 JzNlPuH4VYgnZ7YhKLLuaun eUq62sN4kZjFlIxG3WXguK3 ApopQ1UHCamAMpUGnnXVR7O 11yw0I3 FDXnWTWoCRA1fKH6hK8zoUn nbjogbGVmdDsgdmVydGljYW rkXIcoY995TRHtzCoeYfFsV 3Vycmlu YaYVfWFkAHJrUO15JV69JO4 2Z2NsAcygkTVuiCQ+PHRhYm xlIHdpZHRoPScxMDAlJyBzd XlmOI7g Tc5iGCHnHXLsvOvjcFZzNqL mj8jkJHVwBDcoXA7xwLmlA4 LspIS7EOVsr4k7Sq11H88kJ 3JvdXA+ PFXjeJP3nJW9hK4wSwSlGmG 0FWpyY378LvOkwUQyHcrdr4 gjo6jyuYj0HwCbVBTngqElr WduPSJ0 l1NmMh66G67eJTlkIVWmJDK gRQYnITGcuWsndc4zjM7kCc 8+ZNCogOX5nIN6qU8gIgTlL jV8CCve R824VyGgpDOhRhnvB35lY8Y vdXA+LMHuXfd5OBTgdUofIT 4yiHRbYWyaPe7aBKO5VlOoB jIwMGlu T0PdHYQxjplllcaxgOZ8FCW sVMJxrX29Fs9fiKklBl5pES JvZSY4SZXzoSOhX2TtwZ4vA iAjMDAw PVFnZ4PhgQGwVMnoU561GIe nFtJ2ZRHzcrCsU8YlSUVglP czClT0j4H8Mk1TbKadcDXoQ Q9xSeXb DPk3W3RkSkx2XOWfaRzkCP9 qjAYfIVnwPk2alKsraEvtXW 6vMPBgaaznu586ZdNyt9swX DEwcHQg XCoeRMB8C17vo6J1INRtRMW bEFA3lQF4lM3luEtfgcdmwO VmdDsgdmVydGljYWwtYWxpZ 246IHRv eNrfXxQHVri2U5LhOut3HKA osKktRE7goAYcNLbjZi7ciS oppIvtDV7yGYTxrktzh751G iOmd9ca KAOlzWZtMAvxGOP6V38ei3J 9XHNjYWCoLSO0mEG8fR5nsF lnbjogbGVmdDsgdmVydGljY WwtYWxp K650KKVgsHtfHx5HOno8R5D vOca4RJUboQgvDW2uqKThIP oaAh0giKyowZwaEM8oGTEfk oqqx963 PsPyr5grLPJqhIXoRXkkHLS 8N02ex7Z1VKCgTTPmOUJ8rX S4lB1ftQokyibxiAMljAyyg mVydGlj TMtbYBwxK906PBNstWsyUfH heWVyOjwvdGQ+AW84cy47Z0 LmMhbxPgm1MOCpBZJ0bUP9f [id number] [facility] (more content not included)... Normal [facility] Amphetamine Screen Ql (U)Ord ered By: Andry Lacy on 12-07-2023 Amphetamines Ql (U) Amphetamines screen Negativ e [facility] Amphetamines Ql (U) Negative Negative [facility] Barbiturates [Presence] in U rine by Screen methodOrdered By: Andry Lacy on 12-07-2023 Barbiturates Screen Ql (U) Negative Negative [facility] Barbiturates Screen Ql (U) Barbiturates [Presence] in Urine by Screen method Negative [facility] Benzodiazepines Screen Ql (U )Ordered By: Andry Lacy on 12-07-2023 Benzodiazepines Ql (U) Positive High Negative [facility] Benzodiazepines Ql (U) Benzodiazepines [Presence] in Urine by Screen method High Negative [facility] Benzoylecgonine [Presence] i n Urine by Screen methodOrdered By: Andry Lacy on 12-07-2023 Benzoylecgonine Screen Ql (U) Negative Negative [facility] Benzoylecgonine Screen Ql (U) Benzoylecgonine [Presence] in Urine by Screen method Negative [facility] Cannabinoids [Presence] in U rine by Screen methodOrdered By: Andry Lacy on 12-07-2023 Cannabinoids Screen Ql (U) Positive High Negative [facility] Comment on above: These are unconfirme d results and should not be used for legal purposes. Drug Cut-Off Concentration: AMPH 1000 ng/mL LUIS ANTONIO 200 ng/mL JOHN 200 ng/mL COCM 300 ng/mL OP 300 ng/mL PCP 25 ng/mL THC 20 ng/mL Cannabinoids Screen Ql (U) Cannabinoids [Presence] in Urine by Screen method High Negative [facility] Comment on above: These are unconfirme d results and should not be used for legal purposes. Drug Cut-Off Concentration: AMPH 1000 ng/mL LUIS ANTONIO 200 ng/mL JOHN 200 ng/mL COCM 300 ng/mL OP 300 ng/mL PCP 25 ng/mL THC 20 ng/mL Drug Screen,Urineon 12-07-19 Amphetamine Screen,Urine Negative Normal Negative [facility] Comment on above: Performed By: #### U RDS #### [address] Barbiturate Screen,Urine Negative Normal Negative [facility] Comment on above: Performed By: #### U RDS #### [address] Benzodiazepines Screen,Urine Positive High Negative [facility] Comment on above: Performed By: #### U RDS #### [address] Cannabinoid Screen,Urine Positive High Negative [facility] Comment on above: Result Comment: Thes e are unconfirmed results and should not be used for legal purposes. Drug Cut-Off Concentration: AMPH 1000 ng/mL LUIS ANTONIO 200 ng/mL JOHN 200 ng/mL COCM 300 ng/mL OP 300 ng/mL PCP 25 ng/mL THC 20 ng/mL PERFORMED BY: [place] [address] PATHOLOGIST [employer] DANICA KUO M.D. Performed By: #### U RDS #### [place] [address] [place] Cocaine Screen,Urine Negative Normal Negative [facility] Comment on above: Performed By: #### U RDS #### [place] [address] [place] Opiate Screen,Urine Negative Normal Negative [facility] Comment on above: Performed By: #### U RDS #### [place] [address] [place] Phencyclidine Screen,Urine Negative Normal Negative [facility] Comment on above: Performed By: #### U RDS #### [facility] [address] HCG ( test) IA.maii d Ql (U)Ordered By: Andry Lacy on 12-07-2023 HCG ( test) Ql (U) Negative [facility] HCG ( test) Ql (U) Urine human chorionic gonadotropin (hCG) detection by immunoassay [facility] HCG,Urineon 12-07-2023 Beta HCG ( test) Ql (U) Negative Normal [facility] Comment on above: Result Comment: PERF ORMED BY: [place] [address] PATHOLOGIST [employer] DANICA KUO M.D. Performed By: #### U HCG #### [facility] [address] Opiates [Presence] in Urine by Screen methodOrdered By: Andry Lacy on 12-07-2023 Opiates Screen Ql (U) Negative Negative [facility] Opiates Screen Ql (U) Opiates [Presence] in Urine by Screen method Negative [facility] Phencyclidine Screen Ql (U)O rdered By: Adnry Lacy on 12-07-2023 Phencyclidine Ql (U) Negative Negative [facility] Phencyclidine Ql (U) Phencyclidine [Presence] in Urine by Screen method Negative [facility] Alanine aminotransferase [En zymatic activity/volume] in Serum or PlasmaOrdered By: Romeo Santana on 11-28-2023 ALT [Catalytic activity/Vol] 14 U/L Normal 7-52 [facility] [facility] Comment on above: Performed By: #### C MP wRFX A1C, CBC #### [facility] [address] [place] [address] [place] Albumin [Mass/volume] in Ser um or Plasma by Bromocresol green (BCG) dye binding methoOrdered By: Romeo Santana on 11-28-2023 Albumin BCG dye [Mass/Vol] 4.6 g/dL 3.5-5.7 [facility] Alkaline phosphatase [Enzyma tic activity/volume] in Serum or PlasmaOrdered By: Romeo Santana on 11-28-2023 ALP [Catalytic activity/Vol] 41 U/L Normal 34-104 [facility] Comment on above: Result Comment: PERF ORMED BY: [place] [address] PATHOLOGIST [employer] DANICA KUO M.D. Performed By: #### C MP wRFX A1C, CBC #### [address] Aspartate aminotransferase [ Enzymatic activity/volume] in Serum or PlasmaOrdered By: Romeo Santana on 11-28-2023 AST [Catalytic activity/Vol] 13 U/L Normal 13-39 [facility] Comment on above: Performed By: #### C MP wRFX A1C, CBC #### [address] Automated basophil %Ordered By: Romeo Santana on 11-28-2023 Basophils/100 WBC (Bld) 0.3 % Normal . [facility] Comment on above: Performed By: #### C MP wRFX A1C, CBC #### [address] Automated basophil countOrde red By: Romeo Santana on 11-28-2023 Basophils (Bld) [#/Vol] 0.0 10*3/uL Normal 0.0-0.2 [facility] Comment on above: Result Comment: PERF ORMED BY: [place] [address] PATHOLOGIST [employer] DANICA KUO M.D. Performed By: #### C MP wRFX A1C, CBC #### [address] Automated blood monocyte cou ntOrdered By: Romeo Santana on 11-28-2023 Monocytes (Bld) [#/Vol] 0.4 10*3/uL Normal 0.0-0.8 [facility] Comment on above: Performed By: #### C MP wRFX A1C, CBC #### [place] [address] [place] Automated eosinophil %Ordere d By: Romeo Santana on 11-28-2023 Eosinophils/100 WBC (Bld) 3.5 % Normal . [facility] Comment on above: Performed By: #### C MP wRFX A1C, CBC #### [facility] [address] Automated eosinophil countOr dered By: Romeo Santana on 11-28-2023 Eosinophils (Bld) [#/Vol] 0.2 10*3/uL Normal 0.0-0.45 [facility] Comment on above: Performed By: #### C MP wRFX A1C, CBC #### [facility] [address] Automated monocyte %Ordered By: Romeo Santana on 11-28-2023 Monocytes/100 WBC (Bld) 5.8 % Normal . [facility] Comment on above: Performed By: #### C MP wRFX A1C, CBC #### [address] Automated neutrophil %Ordere d By: Romeo Santana on 11-28-2023 Neutrophils/100 WBC (Bld) 52.1 % Normal . [facility] Comment on above: Performed By: #### C MP wRFX A1C, CBC #### [address] Bilirubin.total [Mass/volume ] in Serum or PlasmaOrdered By: Romeo Santana on 11-28-2023 Bilirubin [Mass/Vol] 0.5 mg/dL Normal 0.3-1.0 [facility] Comment on above: Performed By: #### C MP wRFX A1C, CBC #### [facility] [address] CMP with reflex to A1Con Albumin [Mass/Vol] 4.6 g/dL Normal 3.5-5.7 [facility] Comment on above: Performed By: #### C MP wRFX A1C, CBC #### [facility] [address] [place] [address] [place] GFR/1.73 sq M.predicted MDRD (S/P/Bld) [Vol rate/Area] mL/min/{1.73_m2} Normal [facility] Comment on above: Performed By: #### C MP wRFX A1C, CBC #### [facility] [address] Calcium [Mass/volume] in Ser um or PlasmaOrdered By: Romeo Santana on 11-28-2023 Calcium [Mass/Vol] 9.4 mg/dL Normal 8.6-10.3 [facility] Comment on above: Performed By: #### C MP wRFX A1C, CBC #### [address] Carbon dioxide, total [Moles /volume] in Serum or PlasmaOrdered By: Romeo Santana on 11-28-2023 CO2 [Moles/Vol] 27.8 mmol/L Normal 21.0-31.0 [facility] Comment on above: Performed By: #### C MP wRFX A1C, CBC #### [place] [address] [place] Chloride [Moles/volume] in S betty or PlasmaOrdered By: Romeo Santana on 11-28-2023 Chloride [Moles/Vol] 106 mmol/L Normal 98-107 [facility] Comment on above: Performed By: #### C MP wRFX A1C, CBC #### [address] Complete Blood Count Auto Di ffon 11-28-2023 Mean Corpuscular HGB Conc 33.8 g/dL Normal 32.0-35.0 [facility] Comment on above: Performed By: #### C MP wRFX A1C, CBC #### [place] [address] [place] NRBC% 0.0 /100{WBC} Normal 0-0.5 [facility] Comment on above: Performed By: #### C MP wRFX A1C, CBC #### [place] [address] [place] Creatinine [Mass/volume] in Serum or PlasmaOrdered By: Romeo Santana on 11-28-2023 Creatinine [Mass/Vol] 0.62 mg/dL Normal 0.60-1.20 [facility] Comment on above: Performed By: #### C MP wRFX A1C, CBC #### [facility] [address] [place] [address] ECG 12 lead ECGon 11-28-2023 ECG 12 lead ECG [facility] [place] [address] [place] [address] Electrocardiograph Report Signed Patient: Jaz Sanders MR#: [id number] : 1995 Acct:[id number] Age/Sex: 28 / F ADM Date: 11/28/23 Loc: Room: Type: [facility] Attending Dr: Romeo Santana DO Ordering Provider: [...] change was found Confirmed by Roverto Duran ([id number]) on 11/28/2023 5:20:45 PM Referred By: Electronically Signed By: Roverto Duran Transcribed By: MUS Signed By Roverto Duran MD 11/28/23 1720 Normal [facility] Erythrocyte distribution wid th [Ratio] by Automated countOrdered By: Romeo Santana on 11-28-2023 Erythrocyte distribution width (RBC) [Ratio] 14.0 % Normal 11.9-15.3 [facility] Comment on above: Performed By: #### C MP wRFX A1C, CBC #### [facility] [address] [place] [address] [place] Erythrocytes [#/volume] in B lood by Automated countOrdered By: Romeo Santana on 11-28-2023 RBC (Bld) [#/Vol] 4.63 10*6/uL Normal 3.60-5.00 [facility] Comment on above: Performed By: #### C MP wRFX A1C, CBC #### [facility] [address] [place] [address] [place] Glucose [Mass/volume] in Ser um or PlasmaOrdered By: Romeo Santana on 11-28-2023 Glucose [Mass/Vol] 76 mg/dL Normal 70-100 [facility] Comment on above: Performed By: #### C MP wRFX A1C, CBC #### [address] Hematocrit [Volume Fraction] of Blood by Automated countOrdered By: Romeo Santana on 11-28-2023 Hematocrit (Bld) [Volume fraction] 40.1 % Normal 34.0-46.4 [facility] Comment on above: Performed By: #### C MP wRFX A1C, CBC #### [facility] [address] Hemoglobin [Mass/volume] in BloodOrdered By: Romeo Santana on 11-28-2023 Hemoglobin (Bld) [Mass/Vol] 13.6 g/dL Normal 11.8-15.4 [facility] Comment on above: Performed By: #### C MP wRFX A1C, CBC #### [address] Leukocytes [#/volume] correc terry for nucleated erythrocytes in Blood by Automated counOrdered By: Romeo Santana on 11-28-2023 WBC corrected for nucl RBC Auto (Bld) [#/Vol] 6.4 10*3/uL 3.8-11.6 [facility] Leukocytes [#/volume] in Blo od by Automated countOrdered By: Romeo Santana on 11-28-2023 WBC (Bld) [#/Vol] 6.4 10*3/uL Normal 3.8-11.6 [facility] Comment on above: Performed By: #### C MP wRFX A1C, CBC #### [address] [place] [address] [place] Lymphocytes [#/volume] in Bl ood by Automated countOrdered By: Romeo Santana on 11-28-2023 Lymphocytes (Bld) [#/Vol] 2.4 10*3/uL Normal 1.00-4.8 [facility] Comment on above: Performed By: #### C MP wRFX A1C, CBC #### [address] Lymphocytes/100 leukocytes i n Blood by Automated countOrdered By: Romeo Santana on 11-28-2023 Lymphocytes/100 WBC (Bld) 38.3 % Normal . [facility] Comment on above: Performed By: #### C MP wRFX A1C, CBC #### [address] MCH [Entitic mass] by Automa terry countOrdered By: Romeo Santana on 11-28-2023 MCH (RBC) [Entitic mass] 29.3 pg Normal 24.7-34.3 [facility] Comment on above: Performed By: #### C MP wRFX A1C, CBC #### [address] MCHC Auto (RBC) [Mass/Vol]Or dered By: Romeo Santana on 11-28-2023 MCHC (RBC) [Mass/Vol] 33.8 g/dL 32.0-35.0 [facility] MCV [Entitic volume] by Auto mated countOrdered By: Romeo Santana on 11-28-2023 MCV (RBC) [Entitic vol] 86.7 fL Normal 80-100 [facility] Comment on above: Performed By: #### C MP wRFX A1C, CBC #### [facility] [address] [place] [address] [place] Neutrophils [#/volume] in Bl ood by Automated countOrdered By: Romeo Santana on 11-28-2023 Neutrophils (Bld) [#/Vol] 3.3 10*3/uL Normal 1.8-7.7 [facility] Comment on above: Performed By: #### C MP wRFX A1C, CBC #### [facility] [address] No Panel InformationOrdered By: Romeo Santana on 11-28-2023 Estimated GFR (CKD-EPI) > 60.0 mL/Min [facility] Creatinine Clearance (Chem N/A [facility] Nucleated erythrocytes [Pres ence] in Blood by Automated countOrdered By: Romeo Santana on 11-28-2023 Nucleated RBC Auto Ql (Bld) 0.0 /100{WBC} 0-0.5 [facility] Platelet mean volume [Entiti c volume] in Blood by Automated countOrdered By: Romeo Santana on 11-28-2023 Platelet mean volume (Bld) [Entitic vol] 6.8 fL Normal 6.3-10.7 [facility] Comment on above: Performed By: #### C MP wRFX A1C, CBC #### [facility] [address] [place] [address] [place] Platelets [#/volume] in Bloo d by Automated countOrdered By: Romeo Santana on 11-28-2023 Platelets (Bld) [#/Vol] 159 10*3/uL Normal 150-450 [facility] Comment on above: Performed By: #### C MP wRFX A1C, CBC #### [place] [address] [place] Potassium [Moles/volume] in Serum or PlasmaOrdered By: Romeo Santana on 11-28-2023 Potassium [Moles/Vol] 4.2 mmol/L Normal 3.5-5.1 [facility] Comment on above: Performed By: #### C MP wRFX A1C, CBC #### [facility] [address] [place] [address] [place] Protein [Mass/volume] in Ser um or PlasmaOrdered By: Romeo Santana on 11-28-2023 Protein [Mass/Vol] 6.6 g/dL Normal 6.4-8.9 [facility] Comment on above: Performed By: #### C MP wRFX A1C, CBC #### [place] [address] [place] Serum globulin measurement b y calculation (mass/volume)Ordered By: Romeo Santana on 11-28-2023 Globulin (S) [Mass/Vol] 2.0 g/dL [facility] Comment on above: Performed By: #### C MP wRFX A1C, CBC #### [facility] [address] [place] [address] Serum or plasma albumin/glob ulin mass ratioOrdered By: Romeo Santana on 11-28-2023 Albumin/Globulin [Mass ratio] 2.3 {ratio} [facility] Comment on above: Performed By: #### C MP wRFX A1C, CBC #### [address] Serum or plasma anion gap de terminationOrdered By: Romeo Santana on 11-28-2023 Anion gap [Moles/Vol] 10.4 mmol/L Normal 6.0-15.0 [facility] Comment on above: Performed By: #### C MP wRFX A1C, CBC #### [address] Sodium [Moles/volume] in Ser um or PlasmaOrdered By: Romeo Santana on 11-28-2023 Sodium [Moles/Vol] 140 mmol/L Normal 136-145 [facility] Comment on above: Performed By: #### C MP wRFX A1C, CBC #### [address] Urea nitrogen [Mass/volume] in Serum or PlasmaOrdered By: Romeo Santana on 11-28-2023 Urea nitrogen [Mass/Vol] 7 mg/dL Normal 7-25 [facility] Comment on above: Performed By: #### C MP wRFX A1C, CBC #### [address] Coding Summaryon 11-14-2023 Coding Summary HTMLBase 64 BpfzjtnnEAz4zBu+PGhlYWQ +[id number] NMTElOSywgQVBQTElOSyIgb iWcSR5guIWeEDZg IC8+YP0hIJZbJjykgJVia2E 8yLF4E69cqj7lVWaetTJ0KV YqXiUeljopz8tiiRd6BFanQ mluOyBt TJHynS51FUG5nL87Wg23aCN yvDIdt2bdjMp3VaKiWUCnAR F4hWguHTcby9BdPPGhY17mu ICrt0J1 PUCtqZxebQNxZoOfaKO0xX1 hKDmngnasy7xfjtnlYus3er 40jOWuo4S5tGB8O7ScwiZ7E GJvbGQg EsipaKUEdM5emwbyj8umenw uTaAxNMHpJTh1XZi4PLXdbW guVyAgMI83WIF3EKBobtDbF 2FsLWFs dNooIdT5m2O0Ru8WG7ZXPnf jX5LYVYBHHXjjcZK+PC90cj 64W0QtGeehNap3EAHkMGB1s KC8oI4d NDGuFBvnw7Q1pPA4Z3CtpyP ang7se4huECShVFklF55sxZ Lec4K0ABVtpOF1ZUVyvKgsG iBzaG93 Oyc+CSLyuMbmo7DwQuaof3h cy0xpkJg7GofhXEEioxBbsB wfYIF4k9LwKe1hBXYqsEZ2s VG8vC6y TsBzLhR3OChoC744ObWhcOF wZpqsQ14aO6UhvLJ+PHRyPj y1QNDdjKnaIU9vN4RdZNFst mctbGVm sSjqML2cMPRzqxeqQGUbxJ1 dVAMeJ5x9WjDjIhA3VLlqL1 ZjTOPckmntNy08lX2eImVhR xI1CReq J2QnkmS6PFVigPYtIWesWJR 3C61bp9I8KHOaDIAuBFG8pB Z2dW5vaVmwuvigdQItuBzcq mVydGlj ZFmxNIloZ038YGJibXqrPgM vZGluZyBEYXRlOiAgMDcvMj kvMjAyNDwvdGQ+JDKdZKI6n WxlPSAn oQIxFVixPr1bmDpiyGyuTL2 mJIUmqtlgMLMagE9tHDFciZ SoxXivZN3xYZIawfupw041V iAxMHB0 HQIrlKLpK7GzvJ9tGqPzJXO qMODnS3CszXMuESlrC271ES urRpV8CZWvicCsL8XeCSWvw WduOiB0 c6A1Yr6Dp0MnpkzpA0MfjNK yTpRwZcntALi4C9ZnMowydX I+WP00NUDvPR00VCz5FFL2z WxlPSdi HNUvB5FihI5xEdTmVLCqNGN kOyc+PHRhYmxlIHdpZHRoPS alTIElDuDikJgpTQ4xCm3cD GVyLWNv pJheaMOtOxEdw8xdZGJvVTv cHE0liQvtH5AiiJM7MILli2 n8Am21L01zQ0MbbMG+PGNvb UK8dCC3 fY1tIbJwKsG5GAmyK890RpJ ewTWaGvotd9ajz7vsmFo8Vl G4STXoctGckFakGAA7g6GpC e19J97s IHdpZHRoPSIxNSUiIHZhbGl gfo1otH5wQk8+KJLesTT3aD N2vJ5mUiKrBbO3BOgkT719U nRvcCIv Cgvgt4mhu8ocwIl0ErWoTVA itcTspRzhJTO6a6EwXu11B1 JqyErrk7EbPau0lm23xDGsy 3G8bUH6 N0MtDSItjdwxdFTaaZscKH3 tNIAulmiiIPWuvR0kAPOgY6 x7TgReEgD8BQrlN8KurcV5U GJvbGQg XAGvnHGYhV8rxnyqz2wdidm yZiVjQEOdXQy3MQp3NMKqyH gzLoEmZRQ2ZbP9QOV3dGPoo A5hsUfw wsdghJ4eUth+ORR3tIVtdEM EBH7cKazoqOE+DDEdVDU7iZ buTBxwXCZzyD2yFYTyR9u4L iAwLjA1 NYygV4JuaaL2TMCgjLStBHW cxAFDoX8gmvelb8rcpqgbIn MbMAIaLCg0YRy7EYVwwEmkK iBsZWZ0 NrZ9DUE5rXKmzJ5pwCquews xwP3bJbn+ImwonBxiRDO7XE z7E1GrAvc0GQCxsXbgJZ0rs GFkZGlu Ph7kbWeujOtaCC3dHVYgvyd uh258FrJln0amQMTgeOReRR pyTDB9B48kp5M4TYFoKRMxH IE6vRQ0 xV7vfDnpikgdtQOtmXizcwJ dqHvfUUwiNNiaK595SXHjyD yfAqNiAFb4V3DlPaa5VNPta UlsLZ1m rTUtFMlhIj5isEnuaUuzZS1 zLYWrmpxay803YsQre5foNZ JypWUxMVkgUJU2N71av7N6W CMwMDAw RAR6tQD1qL0lmMxkjslduLS mdDsgdmVydGljYWwtYWxpZ2 31IJTiqBwzGbVyvWc4N4HkE pc3WERt gXkiBI2doTTkQFwaNh9ekUo tpJowBA3mECQdkqbwm923Hi Iaa8enNZYkeMUqFQmdZQE9C 68bg9K6 INXgFEWeJWP3rSC4oX0chJf nbjogbGVmdDsgdmVydGljYW glMQkwO896OASatYxhRoSiv GllbnQg LXhfNYh4I6JbXaoyjIM+PC9 1MZMhWL60yONywEYah3aemI k1CoPlGVEyEYJ6sAdmEQrzv 3JkZXIt D53yuJGhb0O9MHJpdHpsgJH iZcIghTZ2tN8gTZeywczla5 fmasokGptrc7qxdx62kI20W 29sIHdp ZHRoPSIzMCUiIHZhbGlnbj0 zbA8bLe5+IXRzaPP8sVP9nW 8iPZVoFbE8CRovL041FaZcf CIvPjxj b3ewj7lbePe1HvY8UHCkngV flCwzJHH6o4MyBm88Q24oUO dpZHRoPSIyMCUiIHZhbGlnb t9biR8e Ii8+ECBmjDX7kNY8gT9uOqJ qMvK2AFsqE231AfEdvMMuEy xsP74oI5CjqDC+ELGrYgd6Q CBzdHls KH6gfCRwBFwvXp8lEHP4NdX hIcIsGHgoQ8MpEOZiscnxvf epfAX8HIFlABQieE25He1yb DogMTBw gYRNcC4osvizo4fcjugbVcM pSQNvAZm2POq3AKHmrYpkMv TvMUZ3TjP5XPW6vZOzbZ2ik Glnbjog kV0tS2ZbGUThnxhvSz15fI2 rHnTmBzQ6PRguNil+TUNDQU 5OLCBIRUFUSEVSIEVMSVpBQ kVUSDwv dGQ+BFInDDF8sIpjBOxjYZR fxH5uHRGpU2p0YoWvVoZ7OT rlE0DhLGDnqlvjSd34jF6dZ iAwLjA1 VPnwQ5EfvbK6WDPxkLDaDQj zBNK6P11jz6C8FKXfXLPaCD G4rKQ5yY1tpFsqswllpSZvd DsgdmVy gOwdYKygMBqrT029AWOlkUb hEbPmIwZ0WtC5KIT4V4DuOq z4UMRzyXnsPE4mzAJrILfkY p9htAfp dQfeHU5tPOWritzbHDHdiM1 pZFZquOTcxQqxMN1fCMDdvv wno431YvEwACC9EFZivJLxS 8TfhE2g GqFdQLQpTOMbU6XemVEaBGc pG984PPdlCxB1UMXlxnWnX6 VhOJNpcKziBuC6e6J8Wt4dL CBZZWFy czwvdGQ+OAVgOOL7dQwkXOa dRJQkrX4lCZUsG5g0WvQzZa I1YMhqR4LnKEOmkwgmBy03o E9wNyGg VnU9UWvfQ1YhnvP1PEUueOO eVUplZIH5E43eq6S3QDYbYJ DgGAH7iQC3sJ4tlHzdybtvq GVmdDsg geLdmMosRClyJQfqA356GUB vcDsnPkZFTUFMRTwvdGQ+PH DrFAG2mRbwZUxkAHQlnK8bW XJmK7y0 PuVfPfC2CZcwA4KfIPEnkkm fNl62eM6vPmXwBcW6RHirV4 VlziN7NMDrvSThQOeyJUL1F 03kp1M1 KTXqTUKwZZX5rQE8oL1ymBm nbjogbGVmdDsgdmVydGljYW szSVykP983HSPrtFhiSdDuK SJqLZ8w eTwvdGQ+WP35qp75Q3PsYrv cIem9FRTlBPS1eCG0mB0rOV YoVKanl5T1gQY6G6IjlxWgq t7jc1ks EAEjISqdN61gmHZad0K0OTT hyRP3XFThoZwzMiDosK62Rt c+GIJqsLutq4IvPwfga2zre 8wpkNi9 NsHlEGWkxuKqmHuvSHG2b3I zAb31U76qIBbvOQZiMQVxIY FsRIKioAhtbp2vfW9tLp4+P GNvbCB3 aKT0eL4tSkJhRiY3DRupN68 2IeKbqOCkMtpdg6omd5rbbL f7YiJmYVJvkiHjsLcbKHK2g 6OuXw38 G7ArdIlmg3NvDqq9ng31dHM nc2L9kAB6J2QaZFNyrixunU LhpYotBO3dQEQtfxuqHLZnw Q2kZLYp S7v4MqIiMwS2ICsbH8IclrM 3VLVicYFuKHZnhAQLbQ6ctu djj1jlhpudAeFpOKRoMTg8D Gn0LTCb yNruSjHvCQJ4DcD6UXB4vVP vsN3rnPjmlfknaF2zEyd+UG m7a9mzcJYhIW1nsCE9YP70Z G75rPBf b4E2pMV2R4MwWNQocmwpmqt snSF4PIMsIIJkhA68Ts9lwQ doIe8qCNNmVRJ4WQStiTCtP 4EccC5w WvVgWEHeTGVnD0BlyKZqKZj nW560FTcmQmY7AOKlpcMxO6 UzSEVqtChgQqA5b4U2Cm8DI F01OL47 UB24kFLoy0U9sXR5A8NwMTM rvwjsdneikSW9EDJvNHYljQ 84Fm6dgVqdUl0wUCVxLUM8K FRpbWVz F9SdvY1iFfDhIGBfJILjL4Y qzELyWJlyA629XVsiOvK2NU JwzsMvS5ToZROuaNiiMyZ2z 8J8Uh9I Nb14PY36MS57fNRjz1K6rSK 5W1YtXZAvdrbabaosgHN1JI JqEDMybW63Qj0qfPblIa4zD CAxMHB0 BPNozPLmL2QheC5yDlQxLWZ aAVTgS2AyzOHkONbhX674MS vbJnL8JKQtzkYpZ2ZmWUCgk WduOiB0 d6B8Ot6HRIhjigv8V6HnSdu vdHI+ZW41ZWVkWR72jZBwrO Ngh9ilrSo2HvZxPQInRXL6a WxlPSdi b3J (more content not included)... [facility] Coding Summary HTMLBase 64 CnuoqtnuCEj6kMz+PGhlYWQ +EY5QSCMjQ18piTVegF3fX4 NMTElOSywgQVBQTElOSyIgb oOsKG6mjOJbHWEr IC8+OE5nBRYvYkrdqTOlq9Q 9wTP5L51zal9pPZmznKF6SI HkVaVxzausw2wvsHz2TXzpI mluOyBt MRIuoX86RUB1mH71Dd57dNF vwCHoj5odfKz7HyLlYJAdGJ M4oIesHXacw9CyZHNyB67sv GAqr3A5 MDBwkFvmxIFfGbNclBG4xB1 iETbsutczb3hzvdqcEsf0tx 96jGJzw7W5lFH7R3ChbcF7T GJvbGQg CdpnvWTTxE7wfcwrv4wbdwt sMzRpUVJfWWc6NMg6XCGpcR veAtVsBU82SAX5XJIbhzYkV 2FsLWFs dPpfFzB4h4I2Uk4KB5TKXlg cB4KSGRMYFRydsNN+PC90cj 33F8YoLiilEdm3AEWdCQM9c EI1wG5o DQWkQEzti9P1cLU8J5QwbaJ ktz0qv6exKHIuTZxaO15mwI Mxc7K5MIJzhJS8HWXbfChvM iBzaG93 Oyc+AXIdkZxyc7OoLxapc4l km3xtgMt5IkbaEIOveqEhyB chZJH4m9VdLu9zFLHqgEB7g SV2wC4u EcShMtT5AWsjG511DmSvcWK wXjevZ70lG7CqxRF+PHRyPj d0CMNdvYltAX1gV1IqGWDji mctbGVm wWtgVB3dVOSovqvjCZJtfH7 lUOIjZ4e6CdNgXyJ5QHgjA6 CoORKtftppVm35hJ9ySmRjX uX4NPll P2VwbfY6CNDvmYMqRUgrAFT 1W81ew5A7HRSlSBOoJNW5yC D2iZ6teJjipwbpkEIygZdjw mVydGlj UAudAVvgY130VMHuqFrkVgY vZGluZyBEYXRlOiAgMDcvMj kvMjAyNDwvdGQ+TWHzZAK4p WxlPSAn gIOkZGxqZb1ytHjbzTdpJW2 tJSGpfaruJOJilL5yISHstX NsgXulVF3yKQPlwcuzg655O iAxMHB0 GWRunGSkG5FsqH1kDrMbSPU yAFXfI0NhrEZmITerW669CY thNiE0QAPntnFsZ1UjPPNts WduOiB0 i7K4Ax7Fo5BdlathU2FuaBJ lDoVwRqbcYYh7W3UlUqgfsK I+EW53HPAaGL99MIp6JZK9w WxlPSdi MAArY3DndN1zQpMcGUDdZUZ kOyc+PHRhYmxlIHdpZHRoPS ehSMXtMpYgvTiyYA3bNn3hC GVyLWNv wUjgoZBfBfJhh3gtHWAnQXp hGO8bxTfqN0WvmYR7EBIxl4 i1Ub03H96sF3DvmDJ+PGNvb XS5sYM9 qW7aGsHdRzV6WFkvO518NnE naWDpGjvpk9pdu9mgzEq0Oy J1HSSsktXzrJiyTRT3p0RaW g48H17r IHdpZHRoPSIxNSUiIHZhbGl lpo6udE5qUu1+TZHkhGI4eV O6nD9zFxSeDzP9YYqtU920E nRvcCIv Jurok0uxw6ebbLd7MpVhSRB kqyEwbHojVGA8h2GiRk59K4 FmaLual4YqWvr2hw29bHMne 8Z8tKQ1 W4EfASMadwkfvKLbjXjcOF5 yEHBlxjpgFOWjvW0iYWLlJ5 m7BvNrKjS6ZFogJ6SbqoC0C GJvbGQg KAJztSAZyA6ghvvjs9bhmxr xPsZxVKWoKEo5BBj4BPFmqA njXeEqILX6KjU6PDK2yTNsi Y8whFap ncctcO8hUnt+IVZ8tGXaaED VGP0wCeglvKJ+ZZZyFLE1pK utXBvzSUHmlW8gKJOiE2s9R iAwLjA1 FCsoE9YusyP2YEFweVHhHWW jpGWQoI5liaoti9jltfyhUw IeFSDxACc3ZWm7JXMrvLgqT iBsZWZ0 ZrD7UWF5kMBymE9cvBdnuox twL1iZtk+OqzqaFgpVOR2IQ z7R0NoFie4LAFspMydZF7iu GFkZGlu Bi1ouRiovCqtAR9wDCCjwuk qt111RyKxd3mxDKCcoSBjNG geTMI1S21oj5G8QNKkGJSpW PX9xNF0 kH7hnCkcyuilkJTovYnnqeR elDrpWRkeWNnsR876JPDwiZ aqRrOlMNl7F0OtNye8RQRbx XkoOW3n dUXiFOnpXf5imMzhiVkhTY4 iAYEdphzix892GqSnx9dvHJ BsbOPiRVveHCA5I50iv2K0J CMwMDAw DKI8lBC2cG2roSppkmoywFK mdDsgdmVydGljYWwtYWxpZ2 52LXOdgEkjXvAdoZg1L0SeU tz5XWQq nIleNT5nxFAwBLhpEn1rdPv niTwdTF2jRHDidrepy644Eq Lqg0raTFSgnIGbJWsxTNG0Z 48uz7Q1 MYMzOLZaITG0vBB1aU7llQu nbjogbGVmdDsgdmVydGljYW foTQkiC173AWEbwIivPlLvd GllbnQg KOkdCLs6F9IeMcvlnID+PC9 3AOYbXK14aWHjzLOfc4yysW x8TbFiJYXbDYT1tRrbPPibg 3JkZXIt M56nzXBsa1C2PMFraPfotLX eWcEanIC3bC6yXAgnkyugl1 ouwsboYbgyb9rirq13wD10D 29sIHdp ZHRoPSIzMCUiIHZhbGlnbj0 reR5oMv1+BEShfWK9oEL7hI 4jXVKwDsW7VBelP729EhIog CIvPjxj i8ngz1xzkUf4NjP3DTKteqT fqUrkXWI4u9OaEu39S63aVS dpZHRoPSIyMCUiIHZhbGlnb f7yzW6z Ii8+HTIrcYI0vZN3qH3iDhT bFgA5YGiiL930NwNcvKKoHz vhT72eN4BwjYP+SPRcNqq7D CBzdHls LN3wjAXnOVwrVi6uGBX6XdK vQdHcLDhjR3EcNUTbjyyhbr tqiPN3XGRpIJBqxK86Pt9vk DogMTBw gPZHhV3gzihnb6ejfombXyQ wGFNfPNt2WEe7QYSppZiqWa GfLDJ3SbW4ELN4fEDmsY5nl Glnbjog uV5nD7VvHFPbjjipWf17aP2 vUzRsUiG8MSlhNsh+TUNDQU 5OLCBIRUFUSEVSIEVMSVpBQ kVUSDwv dGQ+LWTuVXK2vQfuREepJOS gwI7bBORaJ7w5WaCoZrF5YV uwM3QqQMFglusaYv53jJ1lC iAwLjA1 SBswE4SpquT2XMLcbNFbRQp uLMM1A39xc6Y0BLKjUYGxVB P2hEC5aZ1bpOeyanvpeDEqu DsgdmVy rGoiQAdqQInlQ513JZRwaRc wJfCvBdC2VkA5CEY9G4UjAu k7VEPffUfrZI2giMKzPCadZ j2evXwk dOeeNS8xHZFqmkizEOXqrD0 iAUQqeEHenZjvHV9hZSHjjw pef121MkSyFCG0IKWwsIJoE 5DhdZ0w VwVeZOWsOHQsL6WvyXDmXUh nR833GVgvCkH2DMVpkiAwW3 RzKTEpnNnsThA1e7D4Gn0fO CBZZWFy czwvdGQ+BWZeOVB7eEndROx xUNJulG9tRIQxV3g1WzPuMv S2HPohT9KzMGWiutmpNn07h G5gNkLp BpN5XJggF7MdyxB7UTUhxNP gUMecSYS6T55xe6U6ZSAeJL LaEZQ2dHD3sJ3byAbxnabfw GVmdDsg agIolAqvVTehKGkiW038XBO vcDsnPkZFTUFMRTwvdGQ+PH GaLBR3qOqnPJvqUKLtbQ3uX ZYsB8l0 CyHrZiH5HQvsI2DeXVYwnss dWd03iO9qKmFyVsH3RPthC3 VxnmL7MPWqyNExJJrtPDU2I 52ri5I9 DUBiWUDgDCZ9kMD1qM2ygFj nbjogbGVmdDsgdmVydGljYW pwCNabE034FPDrdKdtIdYeX QBdHI8l eTwvdGQ+XA99ac97V1PzRia oYtn0VWNhAZK2kAG8tU1rEZ UdFBtrc5B1kOM6J4PosgSpw e4xm2df YHGhXMwnS05wyBBmz1E5MPD nwMW2GRTppVgtToOdyB35Xf c+SKTbbWpnw7TqRcyeu1ijx 0zalZd0 HlNgRZShewTglTprUAB6o8G qVi37U89zENnwTNUwPTCdLR EuHMNmcDsldu6atE1zSm3+P GNvbCB3 vHS5fS0bDfXoEgQ9EAwiF21 7GvCjaAHaGhqbd3tix6tyiG b3DdXdYPFkyfDuuSsfTBQ3o 2GwOg80 V2WkcVske1BpMke3lv46fLL fx3S5zXG0X5FjJXUonviciN NgcVghXM2bUBKfdtjmBNEzo H6sIQYf B5b1WnCqVfR4QNavT7DsolR 1NCFhcUFeMJMzrKHXzS2sxs eto1ychuosLxUpSDBbOQb4W Hu3VSCn yNgdCoNxRLU6LoW9BOY8pUJ mzF5wpNeikxwcvB7kKnu+UG h1f0qjyFLpTQ8hvFM9BH97W D82wLGl r0B5gMF4K2BhRCGvddmnwfa cwZV7BSCrYINpuU76Zc7kgH hwZp5gWLGmZBL6HHScdJKzT 1KfaL2t OhDxKJRuVXFdZ2ZgrVFxGYw vN107WHgfLtV9YDKdsqOcX6 AmWIZprJmfXkC8u3M8Ld2ZY I76EL21 LN40tWGig3N1xJD2W4XvTMB qhrjhjalutMZ3ECGyGYWddE 30Tp2phIklFl5tJKFmRLD6D FRpbWVz C7QxxO1dKlCaIZClIDUqU8Z gqDHqFDdnQ461VUhhYtW2TL BwivDkT9JySGRlgGjdZwS3r 7P9Hz4H Kj42YW09PC86mGAhg1Q4hVQ 3S0KuDAZpwlranqyfoAB7OX ZqYNObxW54Gq0obXwzKl3aT CAxMHB0 XAMonQCoV1IwcT1jHsMrPZY oNJWuD6MasLKoSLkwV035ML neTsY6TFOznkDbK4StECBhe WduOiB0 o3J8Bk8QQGkpcpu9P8HaJal vdHI+NZ14KENfUM32yTLxsS Tyo3jdqDx4UjBoTQVxECG9g WxlPSdi b3J (more content not included)... [facility] Provider Orderson 11-09-2023 Provider Orders [id number] [facility] Chlamydia/GC Amplification L Con 11-04-2023 Chlamydia trachomatis, AC LC Negative Invalid Interpretation Code Negative [facility] Comment on above: Performed By: #### [id number] #### [facility] (DEFAULT) [address] [place] [address] Neisseria gonorrhoeae, AC LC Negative Invalid Interpretation Code Negative [facility] Comment on above: Result Comment: Perf ormed At: [facility] [address] [place], [place] [id number] Ivan Calvin MD Ph:[phone] Performed By: #### 7 [id number] #### [facility] (DEFAULT) [address] [place] [address] Consent Formson 11-03-2023 Consent Forms [id number] [facility] ED Note-Nursingon 11-03-2023 ED Note-Nursing Fluconazole 150mg ta b called into [facility] Patient contacted and notified of the results of her culture and the prescription that was sent for her. Instructions on how to take the medication was given, patient verbalized understanding [facility] .Auto Diff 1on 11-02-2023 Auto [place] % 9 % Normal 04-29 [facility] Comment on above: Performed By: #### 1 [id number] #### [facility] (DEFAULT) [address] [place] [id number] Baso Abs# 0.0 x10 Normal 0.0-0.2 [facility] Comment on above: Performed By: #### 1 [id number] #### [facility] (DEFAULT) [address] [place] [address] Basophils/100 WBC (Bld) 0.2 % Normal 0.2-2.0 [facility] Comment on above: Performed By: #### 1 [id number] #### [facility] (DEFAULT) [address] [place] [address] Eos Abs# 0.3 x10 Normal 0.0-0.4 [facility] Comment on above: Performed By: #### 1 [id number] #### [facility] (DEFAULT) [address] [place] [address] Eosinophils/100 WBC (Bld) 9.0 % High 0.9-4.0 [facility] Comment on above: Performed By: #### 1 [id number] #### [facility] (DEFAULT) [address] [place] [address] Lymph Abs# 0.4 x10 Low 1.3-2.9 [facility] Comment on above: Performed By: #### 1 [id number], [id number], [id number] #### [facility] (DEFAULT) [address] [place] [address] Lymphocytes/100 WBC (Bld) 12 % Low 14-48 [facility] Comment on above: Performed By: #### 1 [id number], [id number], [id number] #### [facility] (DEFAULT) [address] [place] [address] [place] Abs# 0.3 x10 Normal 0.0-0.8 [facility] Comment on above: Performed By: #### 1 [id number], [id number], [id number] #### [facility] (DEFAULT) [address] [place], [place] [id number] Neut Abs# 2.4 x10 Normal 1.5-9.2 [facility] Comment on above: Performed By: #### 1 [id number], 3272711, [id number] #### [facility] (DEFAULT) [address] [place] [address] Neutrophils/100 WBC (Bld) 70 % Normal 44-88 [facility] Comment on above: Performed By: #### 1 [id number], 3650970, 4157714 #### [facility] (DEFAULT) [address] [place] [address] C Genitalon 11-02-2023 C Genital Heavy growth of Yeas t No CARLOS performed on this organism No growth of GC at 3 days. 4+ Gram Positive Rods Few Yeast No WBC's seen. Gram Negative Diplococci not seen. Normal [facility] Comment on above: Performed By: #### 7 [id number] #### [facility] (DEFAULT) [address] [place] [address] CBC w/ Auto Diffon Erythrocyte distribution width (RBC) [Ratio] 13.7 % Normal 11.5-15.0 [facility] Comment on above: Performed By: #### 1 [id number], [id number], [id number] #### [facility] (DEFAULT) [address] [place] [address] Hematocrit (Bld) [Volume fraction] 40.5 % High 33.7-40.4 [facility] Comment on above: Performed By: #### 1 [id number], 3990565, [id number] #### [facility] (DEFAULT) [address] [place] [address] 55636 Hemoglobin (Bld) [Mass/Vol] 13.7 g/dL Normal 11.3-15.9 [facility] Comment on above: Performed By: #### 1 [id number], 5622573, 5982678 #### [facility] (DEFAULT) [address] [place] [address] Man Diff? Auto Invalid Interpretation Code [facility] Comment on above: Performed By: #### 1 [id number], 2452095, [id number] #### [facility] (DEFAULT) [address] [place] [address] 26378 MCH (RBC) [Entitic mass] 29 pg Normal 24-34 [facility] Comment on above: Performed By: #### 1 [id number], 2748589, 2092503 #### [facility] (DEFAULT) [address] [place] [address] 47034 MCHC (RBC) [Mass/Vol] 34 g/dL Normal 26-37 [facility] Comment on above: Performed By: #### 1 [id number], 2493513, 6773019 #### [facility] (DEFAULT) [address] [place] [address] 66495 MCV (RBC) [Entitic vol] 85 fL Normal 81-100 [facility] Comment on above: Performed By: #### 1 [id number], 1346393, 2146662 #### [facility] (DEFAULT) [address] [place] [address] 75222 Platelet 106 x10 Low 138-427 [facility] Comment on above: Performed By: #### 1 [id number], 2371583, 1678701 #### [facility] (DEFAULT) [address] [place] [address] 06284 Platelet mean volume (Bld) [Entitic vol] 7.0 fL Normal 6.3-10.2 [facility] Comment on above: Performed By: #### 1 [id number], 3863636, 3419344 #### [facility] (DEFAULT) [address] [place] [address] 08220 RBC 4.74 x10 Normal 3.70-5.30 [facility] Comment on above: Performed By: #### 1 [id number], 6178024, 5665571 #### [facility] (DEFAULT) [address] [place] [address] 17665 WBC 3.5 x10 Normal 3.5-10.5 [facility] Comment on above: Performed By: #### 1 [id number], 2699857, 1723756 #### [facility] (DEFAULT) [address] [place] [address] 09823 CMP Standardon 11-02-2023 eGFR Non AA >60 Invalid Interpretation Code [facility] Comment on above: Performed By: #### 1 [id number], 7540795, 9763327 #### [facility] (DEFAULT) [address] [place] [address] 92085 eGFR AA >60 Invalid Interpretation Code [facility] Comment on above: Performed By: #### 1 [id number], 9467728, 3682308 #### [facility] (DEFAULT) [address] [place] [address] 75154 Albumin [Mass/Vol] 4.1 g/dL Normal 3.5-5.0 [facility] Comment on above: Performed By: #### 1 [id number], 5573948, 0320302 #### [facility] (DEFAULT) [address] [place] [address] Albumin/Globulin [Mass ratio] 1.7 {ratio} Normal 1.4-2.6 [facility] Comment on above: Performed By: #### 1 [id number], 8731417, 3120184 #### [facility] (DEFAULT) [address] [place] [address] 42118 Alk Phos 40 IU/L Normal 32-91 [facility] Comment on above: Performed By: #### 1 [id number], 3906149, 3233445 #### [facility] (DEFAULT) [address] [place] [address] 78723 ALT [Catalytic activity/Vol] 20.0 U/L Normal 14.0-54.0 [facility] Comment on above: Performed By: #### 1 [id number], 1774170, 5158608 #### [facility] (DEFAULT) [address] [place] [address] 95818 Anion gap [Moles/Vol] 9.5 mmol/L Normal 5.0-19.0 [facility] Comment on above: Performed By: #### 1 [id number], 4081083, 4853192 #### [facility] (DEFAULT) [address] [place] [address] 64060 AST [Catalytic activity/Vol] 19 U/L Normal 15-41 [facility] Comment on above: Performed By: #### 1 [id number], 0787951, 1294380 #### [facility] (DEFAULT) [address] [place] [address] 69920 Bili Total 0.7 mg/dL Normal 0.3-1.2 [facility] Comment on above: Performed By: #### 1 [id number], 2372039, 2742342 #### [facility] (DEFAULT) [address] [place] [address] 23700 Calcium [Mass/Vol] 8.4 mg/dL Low 8.9-10.3 [facility] Comment on above: Performed By: #### 1 [id number], 7050242, 9178449 #### [facility] (DEFAULT) [address] [place] [address] 61769 Chloride [Moles/Vol] 109 mmol/L Normal 101-111 [facility] Comment on above: Performed By: #### 1 [id number], 2484020, 6215577 #### [facility] (DEFAULT) [address] [place] [address] 83611 CO2 [Moles/Vol] 21 mmol/L Normal 21-32 [facility] Comment on above: Performed By: #### 1 [id number], 7134610, 5429584 #### [facility] (DEFAULT) [address] [place] [address] 98910 Creatinine [Mass/Vol] 0.71 mg/dL Normal 0.60-1.30 [facility] Comment on above: Performed By: #### 1 4591042, 7133138, 2217495 #### [facility] (DEFAULT) [address] [place] [address] 24645 Globulin (S) [Mass/Vol] 2.4 g/dL Normal 1.5-4.3 [facility] Comment on above: Performed By: #### 1 [id number], 4567586, 9965074 #### [facility] (DEFAULT) [address] [place] [address] 11934 Glucose [Mass/Vol] 95.0 mg/dL Normal 74.0-118.0 [facility] Comment on above: Performed By: #### 1 6506945, 9302752, 2158711 #### [facility] (DEFAULT) [address] [place] [address] 19949 Osmolality 270 mOsm/L Invalid Interpretation Code [facility] Comment on above: Performed By: #### 1 [id number], 8415609, 6037288 #### [facility] (DEFAULT) [address] [place] [address] 73522 Potassium [Moles/Vol] 3.5 mmol/L Low 3.6-5.1 [facility] Comment on above: Performed By: #### 1 3755007, 2169241, 8600788 #### [facility] (DEFAULT) [address] [place] [address] 26774 Protein [Mass/Vol] 6.5 g/dL Normal 6.5-8.1 [facility] Comment on above: Performed By: #### 1 [id number], 2449166, 8166640 #### [facility] (DEFAULT) [address] [place] [address] 86253 Sodium [Moles/Vol] 136.0 mmol/L Normal 136.0-144.0 [facility] Comment on above: Performed By: #### 1 [id number], 1425576, 6648712 #### [facility] (DEFAULT) [address] [place] [address] 89019 Urea nitrogen [Mass/Vol] 7 mg/dL Low 8-26 [facility] Comment on above: Performed By: #### 1 [id number], 3371722, 9837607 #### [facility] (DEFAULT) [address] [place] [address] 59808 Urea nitrogen/Creatinine [Mass ratio] 9.8 mg/mg Normal 4.6-16.2 [facility] Comment on above: Performed By: #### 1 [id number], 5368379, 9352211 #### [facility] (DEFAULT) [address] [place] [address] Abdomen/Pelvis w/ Contras ton 11-02-2023 CT [...] DO 11/02/23 3:37 pm Technologist: Adama DUFFY [facility] ED Clinical Summaryon 2023 ED Clinical Summary [facility] - Emergency Department [address] [place], [place] [id number] ED Clinical Summary PERSON INFORMATION Name: JAZ SANDERS Age: 28 Years Sex: FEMALE : 1995 MRN: Acct#: Visit Reason: Abdominal pain; Nausea; FLANK/HIP PAIN, FEVER Arrival: 11/02/2023 07:57:28 Discharge: 11/02/2023 13:31:00 LOS: 000 05:34 Check In: 11/02/2023 07:57:28 Checkout:11/02/2023 13:31:00 Address: [address] [place], [place] [address] PCP: Amanda Ford CNP PROVIDER INFORMATION Provider [...] Musculoskeletal Pain Follow-Up: With: Address: When: Amanda Fodr CNP [address] [place] [address] Within 3 to 5 days DIAGNOSIS: 1:Hip pain Patient Understands: Yes - Patient/family/caregive r verbalizes understanding of instructions given Comment: Normal [facility] ED Patient Summaryon 024 ED Patient Summary [facility] - Emergency Department [address] [place] [address] PATIENT DISCHARGE INSTRUCTIONS Patient Information Name: JAZ SANDERS Age: 28 Years Date of : 1995 Reason For Visit: Abdominal pain; Nausea; FLANK/HIP PAIN, FEVER Arrival Time: 11/02/2023 07:57:28 Primary Care Physician: Amanda Ford CNP Attending Physician: Narda Phillips MD Comment: Visit Diagnosis: Diagnoses This Visit Abdominal pain ([id number]) Hip pain (M25.559) Nausea ([id number] ) The Pharmacy at [facility] is open Tuesday through Tuesday from [...] alcohol and/or drug addiction problems; contact the Mental Health & Recovery Board [facility] 08/11 Crisis Hotline -Text 5TBIE ht [phone]. If you received any narcotics, sedation, or [...] sign any legal documents With: Address: When: Daxa Ford CNPnifer [address] [place] [address] Within 3 to 5 days Medication Information: The exam and treatment you received today in the [facility] Emergency Department were for an urgent problem and are not intended as complete care. It is important for you to follow up with a doctor, nurse practitioner, or physician?s data control assistant for ongoing care. If your symptoms [...] so we can reach you if necessary. [facility] Emergency Department has provided you with a complete list of medications post discharge. Please inform your cementer hand/provider of your visit and for further instruction on these medications. Any specific questions regarding your chronic medications and dosages should be discussed with your primary care physician(s) and/or pharmacist. New Medications [facility] [address] [place], [place] [id number], [phone] cyclobenzaprine (cyclobenzaprine 10 mg oral tablet) 1 [...] 0. lidocaine topic (more content not included)... [facility] Extra Greenon 11-02-2023 Tube Collected Yes Invalid Interpretation Code [facility] Comment on above: Performed By: #### 1 [id number], 1347364, 7332225 #### [facility] (DEFAULT) [address] [place] [address] 14820 Test Urine U Preg Negative [facility] Comment on above: Performed By: #### 7 [id number] #### [facility] (DEFAULT) [address] [place] [address] 91187 U Preg Internal Control Pass [facility] Comment on above: Performed By: #### 7 [id number] #### [facility] (DEFAULT) [address] [place] [address] 82899 UA [id number] 11-02-2023 UA Bacteria Trace [facility] Comment on above: Order Comment: Urina lysis Microscopic order added on by [employer] Expert Rules system. Performed By: #### 7 [id number] #### [facility] (DEFAULT) [address] [place] [address] 85447 UA Mucous 1+ [facility] Comment on above: Order Comment: Urina lysis Microscopic order added on by [employer] Rules system. Performed By: #### 7 [id number] #### [facility] (DEFAULT) [address] [place] [address] 51421 UA RBC None Seen [facility] Comment on above: Order Comment: Urina lysis Microscopic order added on by [employer] Rules system. Performed By: #### 7 [id number] #### [facility] (DEFAULT) [address] [place] [address] 61579 UA Squam Epi Few [facility] Comment on above: Order Comment: Urina lysis Microscopic order added on by [employer] Rules system. Performed By: #### 7 [id number] #### [facility] (DEFAULT) [address] [place] [address] 42287 UA WBC None Seen [facility] Comment on above: Order Comment: Urina lysis Microscopic order added on by [employer] Rules system. Performed By: #### 7 [id number] #### [facility] (DEFAULT) [address] [place] [address] 35127 UA w Culture if Ind Standard on 11-02-2023 Breakpoint UA [facility] Comment on above: Performed By: #### 7 [id number] #### [facility] (DEFAULT) [address] [place] [address] Color (U) Dark Yellow [facility] Comment on above: Performed By: #### 7 [id number] #### [facility] (DEFAULT) [address] [place] [address] 45140 Culture? Not Indicated Invalid Interpretation Code [facility] Comment on above: Result Comment: Resu lt created by rule GL_MAGR_ADD_UA_CULT Performed By: #### 7 [id number] #### [facility] (DEFAULT) [address] [place] [address] 10855 Glucose (U) [Mass/Vol] Negative Normal [facility] Comment on above: Performed By: #### 7 [id number] #### [facility] (DEFAULT) [address] [place] [address] 04377 Ketones Ql (U) TRACE Normal [facility] Comment on above: Performed By: #### 7 [id number] #### [facility] (DEFAULT) [address] [place] [address] 77482 Micro? Indicated Invalid Interpretation Code [facility] Comment on above: Result Comment: Resu lt created by rule GL_MAGR_ADD_UA_MICRO Performed By: #### 7 [id number] #### [facility] (DEFAULT) [address] [place] [address] 16353 UA Bilirubin MODERATE Abnormal [facility] Comment on above: Performed By: #### 7 [id number] #### [facility] (DEFAULT) [address] [place] [address] 28932 UA Blood Negative Normal [facility] Comment on above: Performed By: #### 7 [id number] #### [facility] (DEFAULT) [address] [place] [address] 62085 UA Clarity SL CLOUDY Abnormal CLEAR [facility] Comment on above: Performed By: #### 7 [id number] #### [facility] (DEFAULT) [address] [place] [address] 81153 UA Leuk Est Negative Normal NEGATIVE [facility] Comment on above: Performed By: #### 7 [id number] #### [facility] (DEFAULT) [address] [place] [address] 42389 UA Nitrite Negative Normal NEGATIVE [facility] Comment on above: Performed By: #### 7 [id number] #### [facility] (DEFAULT) [address] [place] [address] 12214 UA pH 6.0 Normal 5-8 [facility] Comment on above: Performed By: #### 7 [id number] #### [facility] (DEFAULT) [address] [place] [address] 52964 UA Protein 30 Abnormal NEGATIVE [facility] Comment on above: Performed By: #### 7 [id number] #### [facility] (DEFAULT) [address] [place] [address] 45553 UA Spec Grav >=1.030 Normal 1.001-1.035 [facility] Comment on above: Performed By: #### 7 [id number] #### [facility] (DEFAULT) [address] [place], [place] [id number] UA Urobilinogen 1.0 mg/dL Normal 0.2-1.0 [facility] Comment on above: Performed By: #### 7 [id number] #### [facility] (DEFAULT) [address] [place] [address] Urine Source Clean Catch Normal [facility] Comment on above: Performed By: #### 7 [id number] #### [facility] (DEFAULT) [address] [place] [address] 47314 Wet Mount.on 11-02-2023 Wet Mount. Negative Normal [facility] Comment on above: Performed By: #### 7 [id number] #### [facility] (DEFAULT) [address] [place] [address] 43315 Coding Summaryon 10-26-2023 Coding Summary HTMLBase 64 IoztahboJWw9eYo+PGhlYWQ +XP7SKYFsE22kbWWoaX3wR7 NMTElOSywgQVBQTElOSyIgb lFsZB7ouXOeCAFv IC8+JU3sZHNwThezqNWes8T 3fDJ3P42akw1kOOovcYI1EN KqWuUifjjhy8ntjVx3UWhtH mluOyBt CLVdzC31ODB2yJ25Ez84lOF imDXsx3cmqZx0EsPdASLmDW L6dHpoGDgis7IzMMVeN46gn YBqb3I8 LSCslEbsyYEcZnYswIR7tA3 xSLvuuycbc2ztmnixVoz6or 89bIIde4M5hFL7L5AeewI7V GJvbGQg BgezkUGIsZ6wvdwbm6eyzwr xKvAcGHMbZKi5JWj9KCNqrK cuHwRcOA48JSA9UJXnqxIxK 2FsLWFs bIpkZlE2q5T7Hf1VG0REPjq jF2LALROQOTfhqQE+PC90cj 52S0UxIjltXpj8TZUoPPQ0a KV2iL0u RTAiMYcvn7L3vOX1N6SbuoM nld2ht0enHZNvSTreG13jfT Fuu7I9PJIqyOS8MBQevYcqG iBzaG93 Oyc+YFZmmAsic3DgZtpau0t wf2bgeIn4PpciMGDjkbHweL deQCL2p2ZhPk2vGVKmxAA9y BT3hL0n WtGdPqD9WOjhT688QgLiuGL sKkhrB12uC9DjqJZ+PHRyPj w2EYLcuHhkGZ7bH4ClZITtl mctbGVm jVvrYV9sUNYqgtxoSXHfyA7 nYZJlU3y7PiCaVyF1VKgpN6 PwPIZrzcegPy56oY4fVdBdX vN3OQdr T5KqhfO8ABKgzZVpDThkTWH 4B95gu5Z0TJGgEAYrBJZ4aF S3pO1dzQfgjonkaYTdbEudf mVydGlj XKdqJAfeG459YXKyqQrdFyS vZGluZyBEYXRlOiAgMDcvMT AvMjAyNDwvdGQ+TGJqTQJ7z WxlPSAn mHRjUBciTk7mxXujzOhoTZ1 jDPMkqxsuSZFhiT9rBNAksU WohFxgXF6mQDNsyivvj129Q iAxMHB0 YKCmvYJsI9VnvT5eCbVbJBW cEBDsM2JnhIGmUBesX077MH unVdQ9LYRmthCcG5DxCCZru WduOiB0 y3V6Qy7Wi1ZcfpfqM7QcgGX mNjUlJzxnPWp5A0FoZpqwqI I+RF03QECtKL72JCo5CQV8l WxlPSdi XQRtY7AuwK3pXcRkUDCuRAQ kOyc+PHRhYmxlIHdpZHRoPS tvUTQbVnSthYrqBO3eVt8sP GVyLWNv tHhkdWZaNaEau0nlUNQlPGk kXB2ezOygC5HdgSZ0QNYwn7 s7Hv28W28uU6VpoND+PGNvb EW2nUV0 pS3dKaBcWyR3JOtsQ500TaZ ujUBsQnoyn4hyt3mgbKm5Cp V0ZVCzrtWdrYygQMR2h0ItT d05F58f IHdpZHRoPSIxNSUiIHZhbGl zpi1iuC9fTo3+HEFxfWC5qD B0gD8dAvUwTlL4TWguR478N nRvcCIv Afohn1wig9ysnPc8QfDsHTN vlnWtkYvzBGB9d0LjOa89T0 ZqpPsgz7EnAia9jg46aIGhm 3W2oVI7 P7GbQBTizmgmoSRyfXjtYO7 lMOGmzmxnXIXehR5bAHCcA4 s9KfUuAcJ9FPtvH6XvlqH1W GJvbGQg XZLlwYPKtW1cgsnwh7asjst zZvKqOVZbPOn6UPj5UNHwtC amMkWoSDO7PsR4WLA7zYShi T8ymSwi khgijK4nPhe+YOC4pOUcuMY PRH6zVbmojLJ+WQZcMJZ1aD vpMQhvEPWdkW4uTUEdL1b3S iAwLjA1 CEhpG6NdzaB9PZDlxBJdHUU ouUAUeC5bannbj1hdtakmXl YkVJDmREd9WPx8JERtsEraR iBsZWZ0 AdQ1UPD0bBEmsR1coEtxfcm xoY5dBvl+SiaqbTtkEAS6JS v1V1CeWgu4EBDjsLpvMV8gw GFkZGlu Is3tcYnsfPixBZ4uTDQohwz ln418AkJpc9nmGMNnvSGlIX nuLAX1Y64gc6G9JKHhNANlJ PP7nHQ0 dV5arUithatfsPFnmIbyxeO gwTrwBJiwVTamU378ZEYycW jvGhJiWAx7A7LfErv1GGDje IohFZ8r gRFpUDymZg4gyCrqoOzlGZ1 eOSDecijga603CzKhd0yaDR AllKUxXSmeIIK1A78oj1A8A CMwMDAw RCT9pIV5gN6flCtcudvfhOY mdDsgdmVydGljYWwtYWxpZ2 25LTQxcWloZcYkjZo6D2UeA gv3NFHn nWirGN3ncHLnLMjyEj0rbNp lfVjoPA3rTWIsdqymn596Iu Cts9jnSDEboVKyOTvlNVW9D 99wl9R2 WRRrRBSbFCY5wSR3oS2umDu nbjogbGVmdDsgdmVydGljYW xzHUzqM515STRoqGuvRtUvs GllbnQg AMmgWOr9A2PpVuojkTN+PC9 4KDZqHE97xFZphBQgl5ejlZ p8SuVcVVEcSOQ0nVouDZjjv 3JkZXIt F42xmRJle4H2DHFetNsoyEH qTrFtnBK3qI1vSMdblazuj0 uhomolQyhad8jtja23aM78G 29sIHdp ZHRoPSIzMCUiIHZhbGlnbj0 oaK5pAi8+ZVGkdOA7gRH1rD 7xSUBgTcC3JIgaF054TpYhu CIvPjxj t1vxo1vdsNq3McY4QGEnaqR sxIgbVJQ4f7OrRp52S68hCA dpZHRoPSIyMCUiIHZhbGlnb s9rnV4y Ii8+PKBzgXA4aHP6mJ7dYxX dSyX8FLcoB422XuIejQLnHk ktU78oT7NqsCV+JHFfCgz5I CBzdHls BI4muWZuNHlwQg6gJNZ2WqX sYrSeNMuzF0ZvEMXyzvxxdf lgfIZ4PCViNDPseM48Jq5uw DogMTBw nKRSaY0avaltf5cbusveSqM qWVTdIFa5KKt1HGXvuRckOv AcAUX1WoS1YMK8gMInvS2ld Glnbjog kJ4pF5XqVYWljoebXj12jX2 lMjCtVxW8FEqtPik+TUNDQU 5OLCBIRUFUSEVSIEVMSVpBQ kVUSDwv dGQ+VKDnESN1tJkmHZrwSNY ryS0kYBRzX0y0VlGrIbZ6EZ hzQ4UoEAAyoircNg15xW2nY iAwLjA1 XBpiC8TjszL7ZXEgoFCtOVk nOKJ9N16oe5X5GPDeQWJuNZ M8iJA7yF4lmAucnzvpwLBgf DsgdmVy wBpkWKufWGleZ394PKOpgTl eOhQxItP0YxL8VVT9G7TyFd x7RRJukSkyNP3viHTuQVvvL i3wyWkz eMwxQB6uZXGvcmlyWNMvvV3 sOHEdlZGyfJtxAG6rOYKtee tpm759PkCmHIY8OIQnlUTpA 2UsfU4c BqLlGXYyJTNuM7NnyBIgARj lK897EKbbFgA2SONrwfRyT0 VnMEQvtMxrIiY5q8K8Yq0vV CBZZWFy czwvdGQ+DVJbGBN8cZwoKVh iSRLkuN6mENUaJ3p9MyCfVi J2ALcaE5AyBMByderzFg77s D0iUeIk KeB7MAuiJ4SmgxV9SQIykHL lELhqEBJ4V84cm3I3YRJcKF CkMTX6yOZ6nW8weMbroyqkz GVmdDsg dlAmtIfuQBnwUSjqM155WBJ vcDsnPkZFTUFMRTwvdGQ+PH ShXXU7mKeaWHomRRQeeV2gT ZZfI7u3 MgFgUmW9ONcdM3OnXJIxwgc mYh57aW2mMqVqCdB7ZXxtG2 EqqrG5TWBiwOHcRMgiGQG5I 77nc1Z5 UDQsJNTfKYE6mUQ9lO2odKa nbjogbGVmdDsgdmVydGljYW xfCChmN521JEFziCwfMjLeX 3Vycmlu HoSWaZLaWCGwZH97SV95HU9 9Y7TtTwhkeLQacLW+PHRhYm xlIHdpZHRoPScxMDAlJyBzd QlbQB5v Fk0nNWYhZIIzmJsvqZArJqE he4ajRYZuIGnxXC6psXfuZ3 TryHJ6PAKqx5p2Lz64P15fU 3JvdXA+ ZBFhvXI5yUX4gT1iWuUvHhY 5VXchN104VcXdaYUtCvtbk7 ywz6lmdTb8TjGoHNFjuyTtt WduPSJ0 o2UrTn54T10sRUadMYLsSDK kHBNfCJNnyUxhvk0uiN9uOu 8+IHImwCO0dWE1bP6pAcOcF yI5JIxg B166QgXabKTtOvisB52aD9D vdXA+OKWiJkb5TEXyuMoiUM 7alKVmLLcmTf8hPVB2OaHfJ jIwMGlu Q4RkUYTajjtofwwalNI0KMU aIUPbuL56Bb4yvIwrFr2lFT VmCBR0QKMebKAlS3OubF9wA iAjMDAw UVTlL0UlhUBpIEvhC928NPq iIpT2WBSrpmRyJ0OkYBWnzP qrLlH6h2B1Ec4HqMhcaONpN D6xZyPj REi7I0CoOiu6TWTpzVkdMY7 xhNVvDPebMb1bcLfzkHuzKW 8jNLLuyameh397ErDzp3ddC DEwcHQg TTueLUF0K88mo4C5ZHEyMVJ fOSC2dMH0nP6igCpfzmfwgW VmdDsgdmVydGljYWwtYWxpZ 246IHRv zDjaQiMEXah2Q5HpRii7KJQ mfVhmZB3enNSnGNgdMo3dmU lnqOjnIC7xWVDdeepes604M bDii1wq QRNwoSJqSNprLTH0J67fc2T 3QGDlEYWrQWB5hGU5xT2utH lnbjogbGVmdDsgdmVydGljY WwtYWxp T596OHUjzKhvXk9IIex1C7P aJzg8NHLuuSbwJA2jwCLvIZ cwOp2hcJkrrIgnTJ4sMULre odrs162 UiQbo1ewJUPbwSNeYYifKWN 5P25fy0L3QAMpEERgZZG3yZ O0zQ6efIncsqtjcEBkzOffx mVydGlj VTfkJOnpR519KYUooDiaHiO heWVyOjwvdGQ+EN34zo26K5 VmMongHlk0FFMyYQW2lVA7k V7cNZLr JSc (more content not included)... Normal [facility] Basophils Auto (Bld) [#/Vol] on 09-15-2023 Basophils (Bld) [#/Vol] 0.0 x10 0.0-0.2 [facility] Basophils/100 WBC Auto (Bld) on 09-15-2023 Basophils/100 WBC (Bld) 0.3 % 0.2-2.0 [facility] Eosinophils/100 WBC Auto (Bl d)on 09-15-2023 Eosinophils/100 WBC (Bld) 2.7 % 0.9-4.0 [facility] Erythrocyte distribution wid th Auto (RBC) [Ratio]on 09-15-2023 Erythrocyte distribution width (RBC) [Ratio] 14.1 % 11.5-15.0 [facility] Hematocrit Auto (Bld) [Volum e fraction]on 09-15-2023 Hematocrit (Bld) [Volume fraction] 41.4 % High 33.7-40.4 [facility] Hemoglobin [Mass/volume] in Bloodon 09-15-2023 Hemoglobin (Bld) [Mass/Vol] 14.0 g/dL 11.3-15.9 [facility] Iron binding capacity [Mass/ volume] in Serum or Plasmaon 09-15-2023 Iron binding capacity [Mass/Vol] 405 mcg/dL High 250-400 [facility] Iron saturation [Mass Fracti on] in Serum or Plasmaon 09-15-2023 Iron saturation [Mass fraction] 12 % Low 20-55 [facility] - Chemistry and C hemistry - challengeon 09-15-2023 Iron [Mass/Vol] 48.0 ug/dL 28.0-170.0 [facility] Transferrin [Mass/Vol] 289.2 mg/dL 192.0-382.0 [facility] Leukocytes [#/volume] correc terry for nucleated erythrocytes in Blood by Automated counon 09-15-2023 WBC corrected for nucl RBC Auto (Bld) [#/Vol] 6.4 x10 3.5-10.5 [facility] Lymphocytes Auto (Bld) [#/Vo l]on 09-15-2023 Lymphocytes (Bld) [#/Vol] 2.2 x10 1.3-2.9 [facility] Lymphocytes/100 WBC Auto (Bl d)on 09-15-2023 Lymphocytes/100 WBC (Bld) 34 % 14-48 [facility] MCH Auto (RBC) [Entitic mass ]on 09-15-2023 MCH (RBC) [Entitic mass] 29 pg 24-34 [facility] MCHC Auto (RBC) [Mass/Vol]on 09-15-2023 MCHC (RBC) [Mass/Vol] 34 g/dL 26-37 [facility] MCV Auto (RBC) [Entitic vol] on 09-15-2023 MCV (RBC) [Entitic vol] 87 fL 81-100 [facility] Monocytes Auto (Bld) [#/Vol] on 09-15-2023 Monocytes (Bld) [#/Vol] 0.4 x10 0.0-0.8 [facility] Monocytes/100 WBC Auto (Bld) on 09-15-2023 Monocytes/100 WBC (Bld) 6 % 1-12 [facility] Neutrophils Auto (Bld) [#/Vo l]on 09-15-2023 Neutrophils (Bld) [#/Vol] 3.7 x10 1.5-9.2 [facility] Neutrophils/100 WBC Auto (Bl d)on 09-15-2023 Neutrophils/100 WBC (Bld) 57 % 44-88 [facility] No Panel Informationon 09-14 Add Manual Differential Auto Auto [facility] Eosinophils # (Auto) 0.2 x10 0.0-0.4 [facility] Platelet mean volume Auto (B ld) [Entitic vol]on 09-15-2023 Platelet mean volume (Bld) [Entitic vol] 6.7 fL 6.3-10.2 [facility] Platelets Auto (Bld) [#/Vol] on 09-15-2023 Platelets (Bld) [#/Vol] 179 x10 138-427 [facility] RBC Auto (Bld) [#/Vol]on RBC (Bld) [#/Vol] 4.76 x10 3.70-5.30 [facility] Follitropin [Units/volume] i n Serum or PlasmaOrdered By: LEOBARDO BARROSO on 06-23-2022 Follitropin Qn 6.2 m[IU]/mL [facility] Comment on above: FEMALE NORMALS (DELROY ENOPAUSE) MID-FOLLICULAR PHASE: 3.9-8.8 mIU/mL MID-CYCLE PEAK: 4.5-22.5 mIU/mL MID-LUTEAL PHASE: 1.8-5.1 mIU/mLFEMALE NORMALS (POSTMENOPAUSE): 16.7-113.6 mIU/mLMALE NORMALS: 1.3-19.3 mIU/mL Prolactin [Mass/volume] in S betty or PlasmaOrdered By: LEOBARDO BARROSO on 06-23-2022 Prolactin [Mass/Vol] 7.58 ng/mL 3.34-26.72 [facility] CT biopsyOrdered By: Lisha Ford on 06-16-2022 Transferrin [Mass/Vol] 393 mg/dL 180-380 [facility] Iron [Mass/volume] in Serum or PlasmaOrdered By: Amanda Ford on 06-16-2022 Iron [Mass/Vol] 34 ug/dL 40-150 [facility] Iron binding capacity [Mass/ volume] in Serum or PlasmaOrdered By: Amanda Ford on 06-16-2022 Iron binding capacity [Mass/Vol] 550 ug/dL 255-450 [facility] Iron saturation [Mass Fracti on] in Serum or PlasmaOrdered By: Amanda Ford on 06-16-2022 Iron saturation [Mass fraction] 6.2 % 20-50 [facility] Anisocytosis LM Ql (Bld)Orde red By: Farhad Gallego on 06-11-2022 Anisocytosis Ql (Bld) Marked [facility] Basophils Auto (Bld) [#/Vol] Ordered By: Farhad Lashonda on 06-11-2022 Basophils (Bld) [#/Vol] N/A [facility] Basophils/100 WBC Auto (Bld) Ordered By: Farhad Lashonda on 06-11-2022 Basophils/100 WBC (Bld) N/A [facility] Basophils/100 WBC Manual cnt (Bld)Ordered By: Farhad Lashonda on 06-11-2022 Basophils/100 WBC (Bld) 1 % 0-2 [facility] Eosinophils Auto (Bld) [#/Vo l]Ordered By: Farhad Lashonda on 06-11-2022 Eosinophils (Bld) [#/Vol] N/A [facility] Eosinophils/100 WBC Auto (Bl d)Ordered By: Farhad Lashonda on 06-11-2022 Eosinophils/100 WBC (Bld) N/A [facility] Eosinophils/100 WBC Manual c nt (Bld)Ordered By: Farhad Lashonda on 06-11-2022 Eosinophils/100 WBC (Bld) 7 % 1-3 [facility] Erythrocyte distribution wid th Auto (RBC) [Ratio]Ordered By: Farhad Lashonda on 06-11-2022 Erythrocyte distribution width (RBC) [Ratio] 26.1 % 11.9-15.3 [facility] Hematocrit Auto (Bld) [Volum e fraction]Ordered By: Farhad Gallego on 06-11-2022 Hematocrit (Bld) [Volume fraction] 25.7 % 34.0-46.4 [facility] Hemoglobin [Mass/volume] in BloodOrdered By: Farhad Gallego on 06-11-2022 Hemoglobin (Bld) [Mass/Vol] 8.0 g/dL 11.8-15.4 [facility] Hypochromia LM Ql (Bld)Order ed By: Farhad Gallego on 06-11-2022 Hypochromia Ql (Bld) Moderate [facility] Leukocytes [#/volume] correc terry for nucleated erythrocytes in Blood by Automated counOrdered By: Farhad Gallego on 06-11-2022 WBC corrected for nucl RBC Auto (Bld) [#/Vol] 5.0 10*3/uL 3.8-11.6 [facility] Lymphocytes Auto (Bld) [#/Vo l]Ordered By: Farhad Gallego on 06-11-2022 Lymphocytes (Bld) [#/Vol] N/A [facility] Lymphocytes/100 WBC Auto (Bl d)Ordered By: Farhad Gallego on 06-11-2022 Lymphocytes/100 WBC (Bld) N/A [facility] Lymphocytes/100 WBC Manual c nt (Bld)Ordered By: Farhad Gallego on 06-11-2022 Lymphocytes/100 WBC (Bld) 56 % 18-42 [facility] MCH Auto (RBC) [Entitic mass ]Ordered By: Farhad Gallego on 06-11-2022 MCH (RBC) [Entitic mass] 21.1 pg 24.7-34.3 [facility] MCHC Auto (RBC) [Mass/Vol]Or dered By: Farhad Gallego on 06-11-2022 MCHC (RBC) [Mass/Vol] 31.2 g/dL 32.0-35.0 [facility] MCV Auto (RBC) [Entitic vol] Ordered By: Farhad Gallego on 06-11-2022 MCV (RBC) [Entitic vol] 67.6 fL 80-100 [facility] Microcytes LM Ql (Bld)Ordere d By: Farhad Lashonda on 06-11-2022 Microcytes Ql (Bld) Marked [facility] Monocytes Auto (Bld) [#/Vol] Ordered By: Farhad Lashonda on 06-11-2022 Monocytes (Bld) [#/Vol] N/A [facility] Monocytes/100 WBC Auto (Bld) Ordered By: Farhad Lashonda on 06-11-2022 Monocytes/100 WBC (Bld) N/A [facility] Monocytes/100 WBC Manual cnt (Bld)Ordered By: Farhad Lashonda on 06-11-2022 Monocytes/100 WBC (Bld) 5 % 2-11 [facility] Neutrophils Auto (Bld) [#/Vo l]Ordered By: Farhad Lashonda on 06-11-2022 Neutrophils (Bld) [#/Vol] N/A [facility] Neutrophils/100 WBC Auto (Bl d)Ordered By: Farhad Lashonda on 06-11-2022 Neutrophils/100 WBC (Bld) N/A [facility] Nucleated erythrocytes [Pres ence] in Blood by Automated countOrdered By: Farhad Lashonda on 06-11-2022 Nucleated RBC Auto Ql (Bld) N/A [facility] Platelet adequacy [Presence] in Blood by Light microscopyOrdered By: Farhad Lashonda on 06-11-2022 Platelets LM Ql (Bld) Normal Normal [facility] Platelet mean volume Auto (B ld) [Entitic vol]Ordered By: Farhad Lashonda on 06-11-2022 Platelet mean volume (Bld) [Entitic vol] 8.2 fL 6.3-10.7 [facility] Platelet morphology finding [Identifier] in BloodOrdered By: Farhad Lashonda on 06-11-2022 Platelet morphology finding Nom (Bld) Normal Normal [facility] Platelets Auto (Bld) [#/Vol] Ordered By: Farhad Lashonda on 06-11-2022 Platelets (Bld) [#/Vol] 165 10*3/uL 150-450 [facility] Polychromasia [Presence] in Blood by Light microscopyOrdered By: Farhad Gallego on 06-11-2022 Polychromasia LM Ql (Bld) Marked [facility] RBC Auto (Bld) [#/Vol]Ordere d By: Farhad Gallego on 06-11-2022 RBC (Bld) [#/Vol] 3.80 10*6/uL 3.60-5.00 [facility] RBC morphologyOrdered By: An scarlet Gallego on 06-11-2022 RBC morphology finding Nom (Bld) N/A [facility] Segmented neutrophils/100 WB C Manual cnt (Bld)Ordered By: Farhad Gallego on 06-11-2022 Segmented neutrophils/100 WBC (Bld) 32 % 50-70 [facility] WBC Auto (Bld) [#/Vol]Ordere d By: Farhad Gallego on 06-11-2022 WBC (Bld) [#/Vol] 5.0 10*3/uL 3.8-11.6 [facility] Activated partial thrombopla stin time (aPTT) in platelet poor plasma by coagulation aOrdered By: Jean Jett on 06-10-2022 aPTT Coag (PPP) [Time] 29.8 s 25.1-36.5 Fi [facility] Anisocytosis LM Ql (Bld)Orde red By: Jean Jett on 06-10-2022 Anisocytosis Ql (Bld) Marked [facility] Basophils Auto (Bld) [#/Vol] Ordered By: Jean Jett on 06-10-2022 Basophils (Bld) [#/Vol] 0.1 10*3/uL 0.0-0.2 [facility] Basophils/100 WBC Auto (Bld) Ordered By: Jean Jett on 06-10-2022 Basophils/100 WBC (Bld) 1.8 % . [facility] Bilirubin Test strip Ql (U)O rdered By: Jean Jett on 06-10-2022 Bilirubin Ql (U) Negative Negative [facility] CT biopsyOrdered By: Jean Jett on 06-10-2022 Transferrin [Mass/Vol] 380 mg/dL 180-380 Fi [facility] Calcium [Mass/volume] in Ser um or PlasmaOrdered By: Jean Jett on 06-10-2022 Calcium [Mass/Vol] 8.6 mg/dL 8.2-10.2 [facility] Carbon dioxide, total [Moles /volume] in Serum or PlasmaOrdered By: Jean Jett on 06-10-2022 CO2 [Moles/Vol] 23.3 mmol/L 22.0-30.0 [facility] Chloride [Moles/volume] in S betty or PlasmaOrdered By: Jean Jett on 06-10-2022 Chloride [Moles/Vol] 106 mmol/L 95-114 [facility] Color Auto (U)Ordered By: Luis Fernando Jett on 06-10-2022 Color (U) Yellow Yellow [facility] Creatine kinase [Enzymatic a ctivity/volume] in Serum or PlasmaOrdered By: Jean Jett on 06-10-2022 CK [Catalytic activity/Vol] 100 U/L 22-269 [facility] Creatinine and Glomerular fi ltration rate.predicted panel (S/P/Bld)Ordered By: Jean Jett on 06-10-2022 Creatinine [Mass/Vol] 0.71 mg/dL 0.44-1.03 [facility] Eosinophils Auto (Bld) [#/Vo l]Ordered By: Jean Jett on 06-10-2022 Eosinophils (Bld) [#/Vol] 0.3 10*3/uL 0.0-0.45 [facility] Eosinophils/100 WBC Auto (Bl d)Ordered By: Jean Jett on 06-10-2022 Eosinophils/100 WBC (Bld) 5.0 % . [facility] Erythrocyte distribution wid th Auto (RBC) [Ratio]Ordered By: Jean Jett on 06-10-2022 Erythrocyte distribution width (RBC) [Ratio] 24.6 % 11.9-15.3 [facility] Estimated glomerular filtrat ion rate (GFR) non- AmericanOrdered By: Jean Jett on 06-10-2022 GFR/1.73 sq M.predicted among non-blacks MDRD (S/P/Bld) [Vol rate/Area] > 60 mL/Min [facility] Fecal occult blood detection by immunochemistryOrdered By: Jean Jett on 06-10-2022 Hemoglobin.gastrointes tinal Ql (Stl) [facility] Glucose [Mass/volume] in Ser um or PlasmaOrdered By: Jean Jett on 06-10-2022 Glucose [Mass/Vol] 94 mg/dL 70-100 [facility] Comment on above: ADA recommended refe rence rangeRandom Glucose Reference Range is dependent on time and content of last meal. Glucose of more than 200 mg/dL in a nonstressed, ambulatory subject supports the diagnosis of Diabetes Mellitus. HCG ( test) IA.rapi d Ql (U)Ordered By: Jean Jett on 06-10-2022 HCG ( test) Ql (U) Negative [facility] Hematocrit Auto (Bld) [Volum e fraction]Ordered By: Jean Jett on 06-10-2022 Hematocrit (Bld) [Volume fraction] 23.8 % 34.0-46.4 [facility] Hemoglobin [Mass/volume] in BloodOrdered By: Jean Jett on 06-10-2022 Hemoglobin (Bld) [Mass/Vol] 7.3 g/dL 11.8-15.4 [facility] Hypochromia LM Ql (Bld)Order ed By: Jean Jett on 06-10-2022 Hypochromia Ql (Bld) Marked [facility] Iron [Mass/volume] in Serum or PlasmaOrdered By: Jean Jett on 06-10-2022 Iron [Mass/Vol] 25 ug/dL 40-150 [facility] Iron binding capacity [Mass/ volume] in Serum or PlasmaOrdered By: Jean Jett on 06-10-2022 Iron binding capacity [Mass/Vol] 532 ug/dL 255-450 [facility] Iron saturation [Mass Fracti on] in Serum or PlasmaOrdered By: Jean Jett on 06-10-2022 Iron saturation [Mass fraction] 4.7 % 20-50 [facility] Ketones Auto test strip (U) [Mass/Vol]Ordered By: Jean Jett on 06-10-2022 Ketones (U) [Mass/Vol] Negative Negative [facility] - Chemistry and C hemistry - challengeOrdered By: Jean Jett on 06-10-2022 Magnesium [Mass/Vol] 1.9 mg/dL 1.6-2.6 [facility] Natriuretic peptide B (Bld) [Mass/Vol] 23.0 pg/mL 5-100 [facility] - CoagulationOrde red By: Jean Jett on 06-10-2022 PT Coag (PPP) [Time] 12.9 s 9.0-12.9 [facility] Leukocytes [#/volume] correc terry for nucleated erythrocytes in Blood by Automated counOrdered By: Jean Jett on 06-10-2022 WBC corrected for nucl RBC Auto (Bld) [#/Vol] 5.3 10*3/uL 3.8-11.6 [facility] Lymphocytes Auto (Bld) [#/Vo l]Ordered By: Jean Jett on 06-10-2022 Lymphocytes (Bld) [#/Vol] 2.2 10*3/uL 1.00-4.8 [facility] Lymphocytes/100 WBC Auto (Bl d)Ordered By: Jean Jett on 06-10-2022 Lymphocytes/100 WBC (Bld) 41.3 % . [facility] MCH Auto (RBC) [Entitic mass ]Ordered By: Jean Jett on 06-10-2022 MCH (RBC) [Entitic mass] 19.7 pg 24.7-34.3 [facility] MCHC Auto (RBC) [Mass/Vol]Or dered By: Jean Jett on 06-10-2022 MCHC (RBC) [Mass/Vol] 30.6 g/dL 32.0-35.0 [facility] MCV Auto (RBC) [Entitic vol] Ordered By: Jean Jett on 06-10-2022 MCV (RBC) [Entitic vol] 64.5 fL 80-100 [facility] Microcytes LM Ql (Bld)Ordere d By: Jean Jett on 06-10-2022 Microcytes Ql (Bld) Marked [facility] Monocyte distribution width [Entitic volume] in Blood by AutomatedOrdered By: Jean Jett on 06-10-2022 Monocyte distribution width Auto (Bld) [Entitic vol] 17.54 % 0.00-20.00 [facility] Monocytes Auto (Bld) [#/Vol] Ordered By: Jean Jett on 06-10-2022 Monocytes (Bld) [#/Vol] 0.4 10*3/uL 0.0-0.8 [facility] Monocytes/100 WBC Auto (Bld) Ordered By: Jean Jett on 06-10-2022 Monocytes/100 WBC (Bld) 6.8 % . [facility] Neutrophils Auto (Bld) [#/Vo l]Ordered By: Jean Jett on 06-10-2022 Neutrophils (Bld) [#/Vol] 2.4 10*3/uL 1.8-7.7 [facility] Neutrophils/100 WBC Auto (Bl d)Ordered By: Jean Jett on 06-10-2022 Neutrophils/100 WBC (Bld) 45.1 % . [facility] Nitrite Test strip Ql (U)Ord ered By: Jean Jett on 06-10-2022 Nitrite Ql (U) Negative Negative [facility] No Panel InformationOrdered By: Jean Jett on 06-10-2022 Estimated GFR () > 60 mL/Min [facility] Comment on above: GFR estimated refere nce range: According to KDOQI guidelines, <60 ml/min/1.73m2 is sufficient to diagnose a patient with chronic kidney disease. Pharmacy Creatinine Clearance (Chem 149.49 [facility] Nucleated erythrocytes [Pres ence] in Blood by Automated countOrdered By: Jean Jett on 06-10-2022 Nucleated RBC Auto Ql (Bld) 0.1 /100{WBC} 0-0.5 [facility] Ovalocyte detectionOrdered B y: Jean Jett on 06-10-2022 Ovalocytes LM Ql (Bld) [facility] Platelet adequacy [Presence] in Blood by Light microscopyOrdered By: Jean Jett on 06-10-2022 Platelets LM Ql (Bld) Normal Normal [facility] Platelet mean volume Auto (B ld) [Entitic vol]Ordered By: Jean Jett on 06-10-2022 Platelet mean volume (Bld) [Entitic vol] 8.3 fL 6.3-10.7 [facility] Platelet morphology finding [Identifier] in BloodOrdered By: Jean Jett on 06-10-2022 Platelet morphology finding Nom (Bld) Normal Normal [facility] Platelet poor plasma interna tional normalized ratio (INR) by coagulation assay (relatOrdered By: Jean Jett on 06-10-2022 INR Coag (PPP) [Relative time] 1.1 {INR} [facility] Comment on above: INR Therapeutic Rang [...] 06-10-2022 Platelets (Bld) [#/Vol] 202 10*3/uL 150-450 [facility] Poikilocytosis [Presence] in Blood by Light microscopyOrdered By: Jean Jtet on 06-10-2022 Poikilocytosis LM Ql (Bld) [facility] Polychromasia [Presence] in Blood by Light microscopyOrdered By: Jean Jett on 06-10-2022 Polychromasia LM Ql (Bld) [facility] Potassium [Moles/volume] in Serum or PlasmaOrdered By: Jean Jett on 06-10-2022 Potassium [Moles/Vol] 4.1 mmol/L 3.5-5.1 [facility] Protein Auto test strip (U) [Mass/Vol]Ordered By: Jean Jett on 06-10-2022 Protein (U) [Mass/Vol] Negative Negative Fi [facility] RBC Auto (Bld) [#/Vol]Ordere d By: Jean Jett on 06-10-2022 RBC (Bld) [#/Vol] 3.69 10*6/uL 3.60-5.00 [facility] RBC morphologyOrdered By: Luis Fernando Jett on 06-10-2022 RBC morphology finding Nom (Bld) N/A [facility] Serum or plasma anion gap de terminationOrdered By: Jean Jett on 06-10-2022 Anion gap [Moles/Vol] 10.8 mmol/L 6.0-15.0 [facility] Sodium [Moles/volume] in Ser um or PlasmaOrdered By: Jean Jett on 06-10-2022 Sodium [Moles/Vol] 136 mmol/L 136-146 [facility] Specific gravity Auto test s trip (U) [Rel density]Ordered By: Jean Jett on 06-10-2022 Specific gravity (U) [Rel density] 1.010 1.001-1.030 [facility] Target cellsOrdered By: Mackenzie Jett on 06-10-2022 Target cells LM Ql (Bld) Slight [facility] Teardrop cell detectionOrder ed By: Jean Jett on 06-10-2022 Dacrocytes LM Ql (Bld) Slight [facility] Troponin I.cardiac [Mass/vol ume] in Serum or Plasma by High sensitivity methodOrdered By: Jean Jett on 06-10-2022 Troponin I.cardiac High sensitivity method [Mass/Vol] < 3 pg/mL 0-15 [facility] Urea nitrogen [Mass/volume] in Serum or PlasmaOrdered By: Jean Jett on 06-10-2022 Urea nitrogen [Mass/Vol] 9 mg/dL 01-08 [facility] Urine clarity by refractomet ry automatedOrdered By: Jean Jett on 06-10-2022 Clarity Refractometry automated (U) Clear Clear [facility] Urine glucose measurement by automated test strip (mass/volume)Ordered By: Jean Jett on 06-10-2022 Glucose Auto test strip (U) [Mass/Vol] Normal mg/dL Normal [facility] Urine hemoglobin detection b y automated test stripOrdered By: Jean Jett on 06-10-2022 Hemoglobin Auto test strip Ql (U) Negative Negative [facility] Urine leukocyte esterase det ection by automated test stripOrdered By: Jean Jett on 06-10-2022 Leukocyte esterase Auto test strip Ql (U) Negative Negative [facility] Urobilinogen Auto test strip (U) [Mass/Vol]Ordered By: Jean Jett on 02-23-2023 Urobilinogen (U) [Mass/Vol] Normal mg/dL Normal [facility] WBC Auto (Bld) [#/Vol]Ordere d By: Jean Jett on 06-10-2022 WBC (Bld) [#/Vol] 5.3 10*3/uL 3.8-11.6 [facility] pH Auto test strip (U)Ordere d By: Jean Jett on 06-10-2022 pH (U) 5.5 [pH] 5.0-9.0 [facility] Alkaline phosphatase [Enzyma tic activity/volume] in Serum or PlasmaOrdered By: Julieta Jefferson on 06-09-2022 ALP [Catalytic activity/Vol] 39 U/L 32-92 [facility] Anisocytosis LM Ql (Bld)Orde red By: Julieta Jefferson on 06-09-2022 Anisocytosis Ql (Bld) Marked [facility] Aspartate aminotransferase [ Enzymatic activity/volume] in Serum or PlasmaOrdered By: Julieta Jefferson on 06-09-2022 AST [Catalytic activity/Vol] 15 U/L 10-42 [facility] Basophils Auto (Bld) [#/Vol] Ordered By: Julieta Jefferson on 06-09-2022 Basophils (Bld) [#/Vol] 0.1 10*3/uL 0.0-0.2 [facility] Basophils/100 WBC Auto (Bld) Ordered By: Julieta Jefferson on 06-09-2022 Basophils/100 WBC (Bld) 1.4 % . [facility] Body fluid albumin measureme nt (mass/volume)Ordered By: Julieta Jefferson on 06-09-2022 Albumin (Body fld) [Mass/Vol] 4.1 g/dL 3.2-5.5 [facility] Calcium [Mass/volume] in Ser um or PlasmaOrdered By: Julieta Jefferson on 06-09-2022 Calcium [Mass/Vol] 9.0 mg/dL 8.2-10.2 [facility] Carbon dioxide, total [Moles /volume] in Serum or PlasmaOrdered By: Julieta Jefferson on 06-09-2022 CO2 [Moles/Vol] 23.3 mmol/L 22.0-30.0 [facility] Cholesterol [Mass/volume] in Serum or PlasmaOrdered By: Julieta Jefferson on 06-09-2022 Cholesterol [Mass/Vol] 137 mg/dL 140-200 [facility] Comment on above: Chol less than 200 m g/dl low riskChol 201-239 mg/dl borderline riskChol 240 mg/dl and greater high risk Cholesterol in LDL Calc [Mas s/Vol]Ordered By: Julieta Jefferson on 06-09-2022 Cholesterol in LDL [Mass/Vol] 72 mg/dL 0-100 [facility] Comment on above: LDL ATP III CLASSIFI CATIONLDL less than 100 mg/dL OptimalLDL 100-129 mg/dL Near or above optimalLDL 130-159 mg/dL Borderline highLDL 160-189 mg/dL HighLDL greater than 189 mg/dL Very high Cholesterol in VLDL Calc [Ma ss/Vol]Ordered By: Julieta Jefferson on 06-09-2022 Cholesterol in VLDL [Mass/Vol] 9 mg/dL [facility] Creatinine and Glomerular fi ltration rate.predicted panel (S/P/Bld)Ordered By: Julieta Jefferson on 06-09-2022 Creatinine [Mass/Vol] 0.59 mg/dL 0.44-1.03 [facility] Eosinophils Auto (Bld) [#/Vo l]Ordered By: Julieta Jefferson on 06-09-2022 Eosinophils (Bld) [#/Vol] 0.3 10*3/uL 0.0-0.45 [facility] Eosinophils/100 WBC Auto (Bl d)Ordered By: Julieta Jefferson on 06-09-2022 Eosinophils/100 WBC (Bld) 6.8 % . [facility] Erythrocyte distribution wid th Auto (RBC) [Ratio]Ordered By: Julieta Jefferson on 06-09-2022 Erythrocyte distribution width (RBC) [Ratio] 24.5 % 11.9-15.3 [facility] Estimated glomerular filtrat ion rate (GFR) non- AmericanOrdered By: Julieta Jefferson on 06-09-2022 GFR/1.73 sq M.predicted among non-blacks MDRD (S/P/Bld) [Vol rate/Area] > 60 mL/Min [facility] Globulin Calc (S) [Mass/Vol] Ordered By: Julieta Jefferson on 06-09-2022 Globulin (S) [Mass/Vol] 2.3 g/dL [facility] Glucose mean value [Mass/vol ume] in Blood Estimated from glycated hemoglobinOrdered By: Julieta Jefferson on 06-09-2022 Average glucose Estimated from glycated hemoglobin (Bld) [Mass/Vol] 97 mg/dL [facility] Hematocrit Auto (Bld) [Volum e fraction]Ordered By: Julieta Jefferson on 06-09-2022 Hematocrit (Bld) [Volume fraction] 26.0 % 34.0-46.4 [facility] Hemoglobin A1c percentageOrd ered By: Julieta Jefferson on 06-09-2022 HbA1c (Bld) [Mass fraction] 5.0 % 4.3-5.6 [facility] Comment on above: Increased risk for d iabetes: 5.7 - 6.4diabetes: >6.4glycemic control for adults with diabetes: <7.0 Hemoglobin [Mass/volume] in BloodOrdered By: Julieta Jefferson on 06-09-2022 Hemoglobin (Bld) [Mass/Vol] 7.8 g/dL 11.8-15.4 [facility] Hypochromia LM Ql (Bld)Order ed By: Julieta Jefferson on 06-09-2022 Hypochromia Ql (Bld) Moderate [facility] Leukocytes [#/volume] correc terry for nucleated erythrocytes in Blood by Automated counOrdered By: Julieta Jefferson on 06-09-2022 WBC corrected for nucl RBC Auto (Bld) [#/Vol] 4.6 10*3/uL 3.8-11.6 [facility] Lymphocytes Auto (Bld) [#/Vo l]Ordered By: Julieta Jefferson on 06-09-2022 Lymphocytes (Bld) [#/Vol] 2.0 10*3/uL 1.00-4.8 [facility] Lymphocytes/100 WBC Auto (Bl d)Ordered By: Julieta Jefferson on 06-09-2022 Lymphocytes/100 WBC (Bld) 44.2 % . [facility] MCH Auto (RBC) [Entitic mass ]Ordered By: Julieta Jefferson on 06-09-2022 MCH (RBC) [Entitic mass] 19.7 pg 24.7-34.3 [facility] MCHC Auto (RBC) [Mass/Vol]Or dered By: Julieta Jefferson on 06-09-2022 MCHC (RBC) [Mass/Vol] 30.2 g/dL 32.0-35.0 [facility] MCV Auto (RBC) [Entitic vol] Ordered By: Julieta Jefferson on 06-09-2022 MCV (RBC) [Entitic vol] 65.3 fL 80-100 [facility] Microcytes LM Ql (Bld)Ordere d By: Julieta Jefferson on 06-09-2022 Microcytes Ql (Bld) Marked [facility] Monocytes Auto (Bld) [#/Vol] Ordered By: Julieta Jefferson on 06-09-2022 Monocytes (Bld) [#/Vol] 0.4 10*3/uL 0.0-0.8 [facility] Monocytes/100 WBC Auto (Bld) Ordered By: Julieta Jefferson on 06-09-2022 Monocytes/100 WBC (Bld) 8.9 % . [facility] Neutrophils Auto (Bld) [#/Vo l]Ordered By: Julieta Jefferson on 06-09-2022 Neutrophils (Bld) [#/Vol] 1.8 10*3/uL 1.8-7.7 [facility] Neutrophils/100 WBC Auto (Bl d)Ordered By: Julieta Jefferson on 06-09-2022 Neutrophils/100 WBC (Bld) 38.7 % . [facility] No Panel InformationOrdered By: Julieta Jefferson on 06-09-2022 Estimated GFR () > 60 mL/Min [facility] Comment on above: GFR estimated refere nce range: According to KDOQI guidelines, <60 ml/min/1.73m2 is sufficient to diagnose a patient with chronic kidney disease. Pharmacy Creatinine Clearance (Chem N/A [facility] Nucleated erythrocytes [Pres ence] in Blood by Automated countOrdered By: Julieta Jefferson on 06-09-2022 Nucleated RBC Auto Ql (Bld) 0.1 /100{WBC} 0-0.5 [facility] Platelet adequacy [Presence] in Blood by Light microscopyOrdered By: Julieta Jefferson on 06-09-2022 Platelets LM Ql (Bld) Normal Normal [facility] Platelet mean volume Auto (B ld) [Entitic vol]Ordered By: Julieta Jefferson on 06-09-2022 Platelet mean volume (Bld) [Entitic vol] 8.2 fL 6.3-10.7 [facility] Platelet morphology finding [Identifier] in BloodOrdered By: Julieta Jefferson on 06-09-2022 Platelet morphology finding Nom (Bld) Normal Normal [facility] Platelets Auto (Bld) [#/Vol] Ordered By: Julieta Jefferson on 06-09-2022 Platelets (Bld) [#/Vol] 200 10*3/uL 150-450 [facility] Poikilocytosis [Presence] in Blood by Light microscopyOrdered By: Julieta Jefferson on 06-09-2022 Poikilocytosis LM Ql (Bld) Slight [facility] Polychromasia [Presence] in Blood by Light microscopyOrdered By: Julieta Jefferson on 06-09-2022 Polychromasia LM Ql (Bld) Moderate [facility] Protein [Mass/volume] in Ser um or PlasmaOrdered By: Julieta Jefferson on 06-09-2022 Protein [Mass/Vol] 6.4 g/dL 6.1-7.9 [facility] RBC Auto (Bld) [#/Vol]Ordere d By: Julieta Jefferson on 06-09-2022 RBC (Bld) [#/Vol] 3.97 10*6/uL 3.60-5.00 [facility] RBC morphologyOrdered By: Guicho Jefferson on 06-09-2022 RBC morphology finding Nom (Bld) N/A [facility] Schistocytes [Presence] in B lood by Light microscopyOrdered By: Julieta Jefferson on 06-09-2022 Schistocytes LM Ql (Bld) Slight [facility] Serum or plasma alanine paredes otransferase measurement without P-5'-P (enzymatic activiOrdered By: Julieta Jefferson on 06-09-2022 ALT No additional P-5'-P [Catalytic activity/Vol] 14 U/L 10-60 [facility] Serum or plasma albumin/glob ulin mass ratioOrdered By: Julieta Jefferson on 06-09-2022 Albumin/Globulin [Mass ratio] 1.8 {ratio} [facility] Serum or plasma anion gap de terminationOrdered By: Julieta Jefferson on 06-09-2022 Anion gap [Moles/Vol] 11.5 mmol/L 6.0-15.0 [facility] Serum or plasma calcitriol m easurement (mass/volume)Ordered By: Julieta Jefferson on 06-09-2022 1,25-dihydroxyvitamin D3 [Mass/Vol] 60.5 pg/mL 24.8-81.5 [facility] Comment on above: Performed at: - [address] [id number] Director: Jon Horton MD, Phone: [phone] Serum or plasma chloride robel surement (moles/volume)Ordered By: Julieta Jefferson on 06-09-2022 Chloride [Moles/Vol] 106 mmol/L 95-114 [facility] Serum or plasma glucose kelly urement (mass/volume)Ordered By: Julieta Jefferson on 06-09-2022 Glucose [Mass/Vol] 78 mg/dL 70-100 [facility] Comment on above: ADA recommended refe rence rangeRandom Glucose Reference Range is dependent on time and content of last meal. Glucose of more than 200 mg/dL in a nonstressed, ambulatory subject supports the diagnosis of Diabetes Mellitus. Serum or plasma high density lipoprotein (HDL) cholesterol measurementOrdered By: Julieta Jefferson on 06-09-2022 Cholesterol in HDL [Mass/Vol] 56 mg/dL 35-85 [facility] Comment on above: HDL CHOL ATP-III CLA SSIFICATION Cardiovascular RiskHDL > or equal to 60 mg/dL LOWHDL < 40 mg/dL HIGH Serum or plasma potassium me asurement (moles/volume)Ordered By: Julieta Jefferson on 06-09-2022 Potassium [Moles/Vol] 3.8 mmol/L 3.5-5.1 [facility] Serum or plasma sodium measu rement (moles/volume)Ordered By: Julieta Jefferson on 06-09-2022 Sodium [Moles/Vol] 137 mmol/L 136-146 [facility] Serum or plasma total biliru bin measurement (mass/volume)Ordered By: Julieta Jefferson on 06-09-2022 Bilirubin [Mass/Vol] 0.3 mg/dL 0.3-1.2 [facility] Serum or plasma total choles terol/high density lipoprotein (HDL) cholesterol mass ratOrdered By: Julieta Jefferson on 06-09-2022 Cholesterol.total/Chol esterol in HDL [Mass ratio] 2.4 {ratio} <5.0 [facility] TSH DL <= 0.005 mIU/L QnOrde red By: Julieta Jefferson on 06-09-2022 TSH Qn 4.10 m[IU]/L 0.45-5.33 [facility] Teardrop cell detectionOrder ed By: Julieta Jefferson on 06-09-2022 Dacrocytes LM Ql (Bld) Slight Fi [facility] Triglyceride [Mass/volume] i n Serum or PlasmaOrdered By: Julieta Jefferson on 06-09-2022 Triglyceride [Mass/Vol] 45 mg/dL 35-149 [facility] Comment on above: TRIG ATP III CLASSIF ICATIONTRIG less than 150 mg/dL NormalTRIG 150-199 mg/dL Borderline highTRIG 200-500 mg/dL High TRIG greater than 500 mg/dL Very highStandard traceable to the Center for Disease Conrtrol and Prevention (CDC) test method. Urea nitrogen [Mass/volume] in Serum or PlasmaOrdered By: Julieta Jefferson on 06-09-2022 Urea nitrogen [Mass/Vol] 6 mg/dL 9-23 [facility] WBC Auto (Bld) [#/Vol]Ordere d By: Julieta Jefferson on 06-09-2022 WBC (Bld) [#/Vol] 4.6 10*3/uL 3.8-11.6 [facility] Urine 10 SGon 04-21-2022 Albumin DL <= 20 mg/L (U) [Mass/Vol] Negative [employer] Other pH (U) 7.0 [pH] [employer] Other Urine 10 SG Negative [employer] Other Urine 10 SG 1.020 [employer] Other Urine 10 SG large [employer] Other Urine Cultureon 04-21-2022 Bacteria identified Cx Nom (U) [employer] Other Urine culture routineOrdered By: Amanda Ford on 04-21-2022 Bacteria identified Cx Nom (U) 2 Days [facility] Activated partial thrombopla stin time (aPTT) in platelet poor plasma by coagulation aOrdered By: Phu Hdz on 04-10-2022 aPTT Coag (PPP) [Time] 30.4 s 25.1-36.5 [facility] Automated erythrocytes count in urine sediment (number/area)Ordered By: Jean Jett on 04-10-2022 RBC Auto (Urine sed) [#/Area] Innumerable [HPF] 0-4 [facility] Automated leukocytes count i n urine sediment (number/area)Ordered By: Jean Jett on 04-10-2022 WBC Auto (Urine sed) [#/Area] 3-4 [HPF] 0-4 [facility] Automated urine sediment mukesh cium oxalate crystal count by microscopy (number/high powOrdered By: Jean Jett on 04-10-2022 Calcium oxalate crystals LM.HPF (Urine sed) [#/Area] 1+ [HPF] [facility] Basophils Auto (Bld) [#/Vol] Ordered By: Jean Jett on 04-10-2022 Basophils (Bld) [#/Vol] 0.0 10*3/uL 0.0-0.2 [facility] Basophils/100 WBC Auto (Bld) Ordered By: Jean Jett on 04-10-2022 Basophils/100 WBC (Bld) 0.5 % . [facility] Bilirubin Test strip Ql (U)O rdered By: Jean Jett on 04-10-2022 Bilirubin Ql (U) 1+ Negative [facility] Casts typing in urine sedime nt by light microscopyOrdered By: Jean Jett on 04-10-2022 Casts LM Nom (Urine sed) None seen [LPF] None Seen [facility] Color Auto (U)Ordered By: Luis Fernando Jett on 04-10-2022 Color (U) Red Yellow [facility] Creatinine and Glomerular fi ltration rate.predicted panel (S/P/Bld)Ordered By: Jean Jett on 04-10-2022 Creatinine [Mass/Vol] 0.68 mg/dL 0.44-1.03 [facility] Eosinophils Auto (Bld) [#/Vo l]Ordered By: Jean Jett on 04-10-2022 Eosinophils (Bld) [#/Vol] 0.2 10*3/uL 0.0-0.45 [facility] Eosinophils/100 WBC Auto (Bl d)Ordered By: Jean Jett on 04-10-2022 Eosinophils/100 WBC (Bld) 2.1 % . [facility] Erythrocyte distribution wid th Auto (RBC) [Ratio]Ordered By: Jean Jett on 04-10-2022 Erythrocyte distribution width (RBC) [Ratio] 14.3 % 11.9-15.3 [facility] Estimated glomerular filtrat ion rate (GFR) non- AmericanOrdered By: Jean Jett on 04-10-2022 GFR/1.73 sq M.predicted among non-blacks MDRD (S/P/Bld) [Vol rate/Area] > 60 mL/Min [facility] HCG ( test) IA.rapi d Ql (U)Ordered By: Jean Jett on 04-10-2022 HCG ( test) Ql (U) Negative [facility] Hematocrit Auto (Bld) [Volum e fraction]Ordered By: Jean Jett on 04-10-2022 Hematocrit (Bld) [Volume fraction] 29.4 % 34.0-46.4 [facility] Hemoglobin [Mass/volume] in BloodOrdered By: Jean Jett on 04-10-2022 Hemoglobin (Bld) [Mass/Vol] 9.9 g/dL 11.8-15.4 [facility] Ketones Auto test strip (U) [Mass/Vol]Ordered By: Jean Jett on 04-10-2022 Ketones (U) [Mass/Vol] Negative Negative [facility] Laboratory - CoagulationOrde red By: Phu Hdz on 04-10-2022 PT Coag (PPP) [Time] 12.4 s 9.0-12.9 [facility] Laboratory - UrinalysisOrder ed By: Jean Jett on 04-10-2022 Hyaline casts LM Ql (Urine sed) None seen [LPF] 0-8 [facility] Leukocytes [#/volume] correc terry for nucleated erythrocytes in Blood by Automated counOrdered By: Jean Jett on 04-10-2022 WBC corrected for nucl RBC Auto (Bld) [#/Vol] 8.5 10*3/uL 3.8-11.6 [facility] Lymphocytes Auto (Bld) [#/Vo l]Ordered By: Jean Jett on 04-10-2022 Lymphocytes (Bld) [#/Vol] 2.1 10*3/uL 1.00-4.8 [facility] Lymphocytes/100 WBC Auto (Bl d)Ordered By: Jean Jett on 04-10-2022 Lymphocytes/100 WBC (Bld) 25.2 % . [facility] MCH Auto (RBC) [Entitic mass ]Ordered By: Jean Jett on 04-10-2022 MCH (RBC) [Entitic mass] 28.8 pg 24.7-34.3 [facility] MCHC Auto (RBC) [Mass/Vol]Or dered By: Jean Jett on 04-10-2022 MCHC (RBC) [Mass/Vol] 33.6 g/dL 32.0-35.0 [facility] MCV Auto (RBC) [Entitic vol] Ordered By: Jean Jett on 04-10-2022 MCV (RBC) [Entitic vol] 85.7 fL 80-100 [facility] Monocyte distribution width [Entitic volume] in Blood by AutomatedOrdered By: Jean Jett on 04-10-2022 Monocyte distribution width Auto (Bld) [Entitic vol] 14.20 % 0.00-20.00 [facility] Monocytes Auto (Bld) [#/Vol] Ordered By: Jean Jett on 04-10-2022 Monocytes (Bld) [#/Vol] 0.5 10*3/uL 0.0-0.8 [facility] Monocytes/100 WBC Auto (Bld) Ordered By: Jean Jett on 04-10-2022 Monocytes/100 WBC (Bld) 5.7 % . [facility] Neutrophils Auto (Bld) [#/Vo l]Ordered By: Jean Jett on 04-10-2022 Neutrophils (Bld) [#/Vol] 5.6 10*3/uL 1.8-7.7 [facility] Neutrophils/100 WBC Auto (Bl d)Ordered By: Jean Jett on 04-10-2022 Neutrophils/100 WBC (Bld) 66.5 % . [facility] Nitrite Test strip Ql (U)Ord ered By: Jean Jett on 04-10-2022 Nitrite Ql (U) Positive Negative [facility] No Panel InformationOrdered By: Jean Jett on 04-10-2022 Estimated GFR () > 60 mL/Min [facility] Comment on above: GFR estimated refere nce range: According to KDOQI guidelines, <60 ml/min/1.73m2 is sufficient to diagnose a patient with chronic kidney disease. Pharmacy Creatinine Clearance (Chem 152.39 [facility] Nucleated erythrocytes [Pres ence] in Blood by Automated countOrdered By: Jean Jett on 04-10-2022 Nucleated RBC Auto Ql (Bld) 0.0 /100{WBC} 0-0.5 [facility] Platelet mean volume Auto (B ld) [Entitic vol]Ordered By: Jean Jett on 04-10-2022 Platelet mean volume (Bld) [Entitic vol] 6.9 fL 6.3-10.7 [facility] Platelet poor plasma interna tional normalized ratio (INR) by coagulation assay (relatOrdered By: Phu Hdz on 04-10-2022 INR Coag (PPP) [Relative time] 1.1 {INR} [facility] Comment on above: INR Therapeutic Rang [...] 04-10-2022 Platelets (Bld) [#/Vol] 263 10*3/uL 150-450 [facility] Protein Auto test strip (U) [Mass/Vol]Ordered By: Jean Jett on 04-10-2022 Protein (U) [Mass/Vol] 100 mg/dL Negative Fi [facility] RBC Auto (Bld) [#/Vol]Ordere d By: Jean Jett on 04-10-2022 RBC (Bld) [#/Vol] 3.43 10*6/uL 3.60-5.00 [facility] Serum or plasma anion gap de terminationOrdered By: Jean Jett on 04-10-2022 Anion gap [Moles/Vol] 8.5 mmol/L 6.0-15.0 [facility] Serum or plasma calcium kelly urement (mass/volume)Ordered By: Jean Jett on 04-10-2022 Calcium [Mass/Vol] 8.6 mg/dL 8.2-10.2 [facility] Serum or plasma chloride robel surement (moles/volume)Ordered By: Jean Jett on 04-10-2022 Chloride [Moles/Vol] 106 mmol/L 95-114 [facility] Serum or plasma glucose kelly urement (mass/volume)Ordered By: Jean Jett on 04-10-2022 Glucose [Mass/Vol] 99 mg/dL 70-100 [facility] Comment on above: ADA recommended refe rence rangeRandom Glucose Reference Range is dependent on time and content of last meal. Glucose of more than 200 mg/dL in a nonstressed, ambulatory subject supports the diagnosis of Diabetes Mellitus. Serum or plasma potassium me asurement (moles/volume)Ordered By: Jean Jett on 04-10-2022 Potassium [Moles/Vol] 3.6 mmol/L 3.5-5.1 [facility] Serum or plasma sodium measu rement (moles/volume)Ordered By: Jean Jett on 04-10-2022 Sodium [Moles/Vol] 138 mmol/L 136-146 [facility] Serum or plasma total carbon dioxide measurement (moles/volume)Ordered By: Jean Jett on 04-10-2022 CO2 [Moles/Vol] 27.1 mmol/L 22.0-30.0 [facility] Serum or plasma urea nitroge n measurement (mass/volume)Ordered By: Jean Jett on 04-10-2022 Urea nitrogen [Mass/Vol] 5 mg/dL 9-23 [facility] Specific gravity Auto test s trip (U) [Rel density]Ordered By: Jean Jett on 04-10-2022 Specific gravity (U) [Rel density] 1.033 1.001-1.030 [facility] Squamous epithelial cells de tection in urine sediment by light microscopyOrdered By: Jean Jett on 04-10-2022 Epithelial cells.squamous LM Ql (Urine sed) 3-4 [HPF] 0-2 [facility] Urine bacteria detection by automated methodOrdered By: Jean Jett on 04-10-2022 Bacteria Auto Ql (U) None seen None Seen [facility] Urine clarity by refractomet ry automatedOrdered By: Jean Jett on 04-10-2022 Clarity Refractometry automated (U) Turbid Clear [facility] Urine culture routineOrdered By: Jean Jett on 04-10-2022 Bacteria identified Cx Nom (U) 2 Days [facility] Urine glucose measurement by automated test strip (mass/volume)Ordered By: Jean Jett on 04-10-2022 Glucose Auto test strip (U) [Mass/Vol] Normal mg/dL Normal [facility] Urine hemoglobin detection b y automated test stripOrdered By: Jean Jett on 04-10-2022 Hemoglobin Auto test strip Ql (U) 3+ Negative [facility] Urine leukocyte esterase det ection by automated test stripOrdered By: Jean Jett on 04-10-2022 Leukocyte esterase Auto test strip Ql (U) 2+ Negative [facility] Urine sediment crystal ident ification by light microscopyOrdered By: Jean Jett on 04-10-2022 Crystals LM Nom (Urine sed) None seen [HPF] [facility] Urobilinogen Auto test strip (U) [Mass/Vol]Ordered By: Jean Jett on 04-10-2022 Urobilinogen (U) [Mass/Vol] Normal mg/dL Normal [facility] WBC Auto (Bld) [#/Vol]Ordere d By: Jean Jett on 04-10-2022 WBC (Bld) [#/Vol] 8.5 10*3/uL 3.8-11.6 [facility] pH Auto test strip (U)Ordere d By: Jean Jett on 04-10-2022 pH (U) 5.5 [pH] 5.0-9.0 [facility] Basophils Auto (Bld) [#/Vol] Ordered By: PROVIDER TEMP on 04-08-2022 Basophils (Bld) [#/Vol] 0.0 10*3/uL 0.0-0.2 [facility] Basophils/100 WBC Auto (Bld) Ordered By: PROVIDER TEMP on 04-08-2022 Basophils/100 WBC (Bld) 0.4 % . [facility] Eosinophils Auto (Bld) [#/Vo l]Ordered By: PROVIDER TEMP on 04-08-2022 Eosinophils (Bld) [#/Vol] 0.4 10*3/uL 0.0-0.45 [facility] Eosinophils/100 WBC Auto (Bl d)Ordered By: PROVIDER TEMP on 04-08-2022 Eosinophils/100 WBC (Bld) 5.5 % . [facility] Erythrocyte distribution wid th Auto (RBC) [Ratio]Ordered By: PROVIDER TEMP on 04-08-2022 Erythrocyte distribution width (RBC) [Ratio] 14.1 % 11.9-15.3 [facility] Hematocrit Auto (Bld) [Volum e fraction]Ordered By: PROVIDER TEMP on 04-08-2022 Hematocrit (Bld) [Volume fraction] 33.9 % 34.0-46.4 [facility] Hemoglobin [Mass/volume] in BloodOrdered By: PROVIDER TEMP on 04-08-2022 Hemoglobin (Bld) [Mass/Vol] 11.4 g/dL 11.8-15.4 [facility] Leukocytes [#/volume] correc terry for nucleated erythrocytes in Blood by Automated counOrdered By: PROVIDER TEMP on 04-08-2022 WBC corrected for nucl RBC Auto (Bld) [#/Vol] 8.1 10*3/uL 3.8-11.6 [facility] Lymphocytes Auto (Bld) [#/Vo l]Ordered By: PROVIDER TEMP on 04-08-2022 Lymphocytes (Bld) [#/Vol] 2.3 10*3/uL 1.00-4.8 [facility] Lymphocytes/100 WBC Auto (Bl d)Ordered By: PROVIDER TEMP on 04-08-2022 Lymphocytes/100 WBC (Bld) 28.1 % . [facility] MCH Auto (RBC) [Entitic mass ]Ordered By: PROVIDER TEMP on 04-08-2022 MCH (RBC) [Entitic mass] 29.0 pg 24.7-34.3 [facility] MCHC Auto (RBC) [Mass/Vol]Or dered By: PROVIDER TEMP on 04-08-2022 MCHC (RBC) [Mass/Vol] 33.7 g/dL 32.0-35.0 [facility] MCV Auto (RBC) [Entitic vol] Ordered By: PROVIDER TEMP on 04-08-2022 MCV (RBC) [Entitic vol] 86.0 fL 80-100 [facility] Monocyte distribution width [Entitic volume] in Blood by AutomatedOrdered By: PROVIDER TEMP on 04-08-2022 Monocyte distribution width Auto (Bld) [Entitic vol] 13.83 % 0.00-20.00 [facility] Monocytes Auto (Bld) [#/Vol] Ordered By: PROVIDER TEMP on 04-08-2022 Monocytes (Bld) [#/Vol] 0.5 10*3/uL 0.0-0.8 [facility] Monocytes/100 WBC Auto (Bld) Ordered By: PROVIDER TEMP on 04-08-2022 Monocytes/100 WBC (Bld) 6.7 % . [facility] Neutrophils Auto (Bld) [#/Vo l]Ordered By: PROVIDER TEMP on 04-08-2022 Neutrophils (Bld) [#/Vol] 4.8 10*3/uL 1.8-7.7 [facility] Neutrophils/100 WBC Auto (Bl d)Ordered By: PROVIDER TEMP on 04-08-2022 Neutrophils/100 WBC (Bld) 59.3 % . [facility] Nucleated erythrocytes [Pres ence] in Blood by Automated countOrdered By: PROVIDER TEMP on 04-08-2022 Nucleated RBC Auto Ql (Bld) 0.2 /100{WBC} 0-0.5 [facility] Platelet mean volume Auto (B ld) [Entitic vol]Ordered By: PROVIDER TEMP on 04-08-2022 Platelet mean volume (Bld) [Entitic vol] 7.0 fL 6.3-10.7 [facility] Platelets Auto (Bld) [#/Vol] Ordered By: PROVIDER TEMP on 04-08-2022 Platelets (Bld) [#/Vol] 199 10*3/uL 150-450 [facility] RBC Auto (Bld) [#/Vol]Ordere d By: PROVIDER TEMP on 04-08-2022 RBC (Bld) [#/Vol] 3.94 10*6/uL 3.60-5.00 [facility] WBC Auto (Bld) [#/Vol]Ordere d By: PROVIDER TEMP on 04-08-2022 WBC (Bld) [#/Vol] 8.1 10*3/uL 3.8-11.6 [facility] XR shoulder RT min 2V*on XR shoulder RT min 2V* [facility] [employer] Other XR shoulder RT min 2V* [facility] [employer] Other XR shoulder RT min 2V* [address] [place] [address] [employer] Other XR shoulder RT min 2V* [place] [address] [email or web address] [facility] [employer] Other XR shoulder RT min 2V* XRay Report N [facility] [employer] Other XR shoulder RT min 2V* Signed No rt [employer] Other XR shoulder RT min 2V* Patient: Meagan Sanders MR#: [id number] [employer] Other XR shoulder RT min 2V* 978[address] No rt [employer] Other XR shoulder RT min 2V* : 1995 Acct:[id number] [employer] Other XR shoulder RT min 2V* Age/Sex: 27 / F A DM Date: 03/23/22 [employer] Other XR shoulder RT min 2V* Loc: XDPC Room: T ype: REG CLI [employer] Other XR shoulder RT min 2V* Attending Dr: Daxa Ford APRN, ANDREWC [employer] Other XR shoulder RT min 2V* Copies to: Yaya Ford APRN, JARROD [employer] Other XR shoulder RT min 2V* Ordering Provider : Amanda Ford APRN, JARROD [employer] Other XR shoulder RT min 2V* Date of Service: 03/23/22 [employer] Other XR shoulder RT min 2V* XR/XR shoulder RT min 2V*: Other chronic pain;Pain in right shoulder [employer] Other XR shoulder RT min 2V* RIGHT SHOULDER - - 3 views [employer] Other XR shoulder RT min 2V* CLINICAL HISTORY: Pain lateral to right shoulder for 6 months. [employer] Other XR shoulder RT min 2V* COMPARISON: None [employer] Other XR shoulder RT min 2V* FINDINGS: No [employer] Other XR shoulder RT min 2V* Minimal degenerat misti changes of the right AC joint. Glenohumeral joint is grossly unremarkable. No [employer] Other XR shoulder RT min 2V* acute bony process. [employer] Other XR shoulder RT min 2V* 0 XR/XR shoulder RT min 2V* [employer] Other XR shoulder RT min 2V* IMPRESSION: N Indexing Other XR shoulder RT min 2V* MINIMAL DEGENERAT MISTI CHANGES. NO ACUTE BONY PROCESS. [employer] Other XR shoulder RT min 2V* Impression dictat ed by: Sravan Dickinson Jr., DRenaeORenae03/23/2022 4:06 PM [employer] Other XR shoulder RT min 2V* Dictation Locatio n: RADIO-PC-12 [employer] Other XR shoulder RT min 2V* Transcribed By: Diaz OWENS 03/23/22 1606 [employer] Other XR shoulder RT min 2V* Dictated By: Jasiel Dickinson Jr DO 03/23/22 1605 [employer] Other XR shoulder RT min 2V* Signed By: Ana Rosa rt [employer] Other XR shoulder RT min 2V* 03/23/22 1606 [employer] Other Coding Summary.on 09-03-2021 Coding Summary. [id number] Gh0 bWw+PGhlYWQ+PK8BMMRbR44 pdICpsL6DO5bGUJ8KQJOBJG VDPG2FBJ0reWA3MMpgC3Hkt iAv OjqmrHOePC67YEk9VHC9xPg tLMhthO7ywGNoC3k9CwWcRZ 41fQ37EWumQBMyNdU8RyVul jsgbWFy S8plNpMuvGHfTng+PHRhYmx lIHdpZHRoPScxMDAlJyBzdH ozCO7qFa5oOPEqQPQgyOwuf HNlOiBj t3fnLWFbYUjlMB9ytEzcW2L agHO4SAHbe4s0Uz49rKF+PH YgAUO5zKhiWNkws907FoPkb 7xfKJK7 uPGbOCwzREJ1X81fg2N0VAE hXMInHIV1lJZ2zJ0vfDdgpq erG0NfoOLjAsF2DHJ4kJWzf Q4ezVfx emvimC6vSyq+T41BRU3XYAE KSE1LVgg3B7EuDhzijVU+PC 07ARUtQM16hWJwvSOvw3nhv Da5ZsLg BEDwKLG2oKiyTLjbr8YmMML cV42hbBBez0O7BOKigEvllV GoPeJezTX8wP1iRZzxpoufq 2hvdzsn Vaneg8impm34jJ13D67wTAt rQYNpQSR4DWBtBZPelKpfip 0yaB3yBu0+ARjmd9jsp2pma Tr5VmAt YMDhorTazTrfRCB0d8XmIm3 5T2FrlRvqn8GkCof9fm47wO Sen3R9oSA6PFtdMZBaxV5wU WxlZnQ6 PENlOfOaoG06dKHmRAxnSl2 cfHeoyNkxLN8uYSTdlohdEZ PriG1tHQDrsWNypFscWK3fT TBpbjtm j029CyNlFMQ9CRJwtAUpB5B stU1eHlXxENTqHHWzN0YsoN HxWCkoB395PJglTyU3DYBye vOwN5Zr JIVuzZggIdH7w7V0Hw4Dc8L vhgftWSE9VStiRCS5CpH6Jc SoTxO2X1AjPsx4IUTgfBajT L6cH2Ts TPWdttpllfopwPR6PBUeRHA haL05dSGnBOciQo6xu1T0v5 05MLRxXJQrcT03Tj5uzRybW TBwdCBU yF4jiiyth3dasdduGfLoWDA oFTv4SQk8HVDqjXboCoZnJW W4CyU3AVL8jNAskR0hlFmov ltsmR8u Oyc+P67reC1vDMJ0OOO7cku uWNPuvjTcWF69HV98B1UjCy wvdGFibGU+PGRpdiBzdHlsZ Y3zLhJa r5fin0WnQKutH0QgFBBcIBq bJjc9RNClKUS7kCS1zG6eVY ZvBKqyp2I9cKB3S1VgiaMwo m6yy3ie IVChWDrsT45paZZcy0I4FKL ctVK6HPYsxTezMbQngL39Wp c+DEHqwXsmb8BgIerbn2dbd 9lumYf0 DqCqZSUoicFkfErsQWK5u0R uIc48S09sOVxmWTReIBXbSF MgDWFelDiuzk1lqR1jTg9+P GNvbCB3 lAS0bT2aQTRqCyA1QYyfN00 3XdGcfTYiLdrxn4xyl0bdfR f4UwEeLZSxtjInjMldXPZ7p 3LkRz57 Z14eKBgfWNFsXWJyPGGkATI gdHmhij0nhS6dZy4+PC9jb2 xnul25eG28kIK+NKRoAFE9b WxlPSdw SPQamG3kDCtzXtP9LZAuXrY mqP08fPVrSArjPp2reDlpfD poUV6aJCTgzeqlz746MeYvx 2xkIDEw iSYmLXmwPFO1M31tt1W3WAJ eEOViSGG0yMV5sU6oqMgsbd ogbGVmdDsgdmVydGljYWwtY XffH732 IHRvcDsnPlBhdGllbnQgTmF nVXg0N7UrBli9VMTigVelNL 1xxEEcGFyzOq3npQvtfVgcM E7zLFLu okptd614LbMfe1vzYOSuuFV gDUykQEI0V99hw2V5DWCrKZ XhPAF9sXH4nN3zaHtjhvpxq GVmdDsg paVqeYxwQSokLIgvH075XUW zcHosEdEcdhJdFARkhWA7VZ 05HF21fJCgj5K9eIP2P8OkC GRpbmct wkemaFD1GGYlZYRpuW73Ho3 nmAqwOz3bPFLaRBE7EENncA IeE3RcmA0xAgByOCBlMTWqN 3RleHQt MOvxR770MDkhMjD6WWQjbuB pN2FcFLZbeSbnXsS1d7P1Fw 5OR7E8MD81RO28tUIkd6Z8d GK7D0Ls AUKhabxentxstEM1VZVbPPU ppR28Cl7hjKltPi2cDBQkAK U5AIJqgDKoK0YdmY3kQtVnW DAwMDAw B0UymAByTZqhF311JJqmNuP 7WVUjnoZfJ1HwGFNbmZgbSe C7u3I2Ht9GWOm0NU54NZ62x LIzv4L8 hPV7C9GrGDGiexzxbnhljXY 7LFIoUVPutX70Mi7gpDskTr 6vWXUpGEQ4QUNqqAXnI8Woj L2gBbGu KSNlCIKsR5UdfPVpEJlpS37 6TNfeReX0DKHvkaRfN6UqVC GrkXlrQwV7x8G1Vx2IBFHiE S63XGD4 wDD2BI91OF25Z0VyXjjffMY ibGU+PHRhYmxlIHdpZHRoPS tuQHIsWeZgmCooKB5xXd3kB GVyLWNv nQtpoDWjQuNjm6wyOUMuIFf mIK3hjBnzL0OnqLP7AXKrx3 i7Jv56B86qA8TssAN+PGNvb HP1yPC0 dJ1iIcMtOtD0FBogD015HgY meZMgRugri8inh7nbsHy3Cn Z4TQAzgxCpvSxzEKE0w4FeM z18M23v IHdpZHRoPSIxNSUiIHZhbGl iwg7gjZ9zQw5+JJKsjCE9aG W9eL2xCoRsDkA3ASzoS470J nRvcCIv Zqvwt8bar7tovEj6WdYdQDH lkrAnaIlcUSU9y7JdDv04F6 OhcAvuv5OuKkp8dl99zWLry 6R4vFC5 T3DiKACjueorcMImyQmeHN0 kHGUpomhkDIFbmA7zPOLqZ6 a2FkLwQeU2RLbqY9WesbP0R DEwcHQg VIgkGUY2V31uf2S6SNMxRZS yJHJ3nQZ6bG4qfRhxjnruwA VmdDsgdmVydGljYWwtYWxpZ 246IHRv bQmyBFGioV5lHBWtfVDugRz eGO2jEHAkvfdtJr8JA7FRTi wgSEVBVEhFUjwvdGQ+PHRkI TO1zZmc LTxxOIPnuR7yWPOkI2k9LjP tRfM6RPpsO9PlXKWswrapKx 71tB8gZmLjWeS3BTsxW1Haz uK5NIYo hZDtIChxYST3L06sq0N2XYH wLDThFMT8eCM7pL4otDwyiz ogbGVmdDsgdmVydGljYWwtY KbbG913 VXIqiMyzZiExPnL0RaX2NJA 0R9XxRtu0JLRduXneCZ4uaA ZpNXiwMn9xjIwrfMxrUM5oP TBpbjtw HRRxdB9dXBGmgUGddPxsGQ9 rTGEzpfyfm241XkWlQTY0IG FrfQTdM5BxuI5uMfXaUVOhF JChK2Qd hITbLPvqT447LQhhHaX5CLP mkfGkT1ZtQXHefVjlYzZ3h5 Q9Ux5yTdUHLNSqjztjzAA+P HRkIHN0 iOeuNMxcVCIadP4fACPhQ6t 7VhEyFcZ7RYdrF7MoEQZmjq lvUm37kS8qXqYdStM4NQhyL 3FzvaN9 DBRqiGWtZEodXVD5M38dt0Q 8YXHbVUMvITE8uNJ4vO8vdY lnbjogbGVmdDsgdmVydGljY WwtYWxp O335YVHccJvtXcSukEQyJCe vdGQ+TYGyXET5rDbnJLpyWI WhgW4vMKEqF3w7MwArWcW9Q YjuB5Vw BJLrvjgeTr46bG6iRfHiFfE 0BLsbR9RrabU9JPHedXRqGG gqPLP8V27zy2A1CLNgKCCcP CO0yRR8 rP0teUdptkirsLMbeYubsnQ mxFcxRDqtLVopN127JYZcjL zhIk12vONoxRbeolK9L4YdE jwvdHI+ DU06XLTpLE21wJPchLHba5c amPu5ZeVqTIYuXBY7oUemSX yrf3HtFTEzI40zaDXmr6P2E GNvbGxh mFDjPdMziUA0zL9tNNyabqq ju4ftiyhpPsunx1poqr41bJ 38B60lQBqfHNQlKUAbVYRlI HZhbGln nh7fgQ8iGl7+BMWmcBS7jJR 2gP2bPySoSlW2NZryP866Ks EquGYdGpyjp9zsm6nizEv8Q jIwJSIg wjBfrPwkJFK4x5ZjEk93H72 sIHdpZHRoPSIyMCUiIHZhbG amft7kbM4vFn7+LG3pp8jdd k42dZ68 dHI+RRVaUDE4bNphLBiuSGX cdR0wFMgbPpU3IUMyQbWtjS 80iQStUNqrIf6exHildTopJ J5aFSYg qzhvj994LdUzj6lxEZMmwMA pVOddJOV6C09tj2J5DNDmNB KeHTE9fAI1iN3jxWkfqsljq GVmdDsg qmZyqFnmVMqdXXkyA810UBY smAxjReZyxUMdJ9ujdcUFFV 1lOjwvdGQ+ANBfOUJ2tFpbQ SdwYWRk eW5wLSKdH1u4MuZfBsV7BCv rS5AyjqY7BDIivHKaUDEzoS EZgW2kclgfn7aedthgGtInG DAwMDt0 YMv8AUHzaAurCnYhLWM1VbE 5FLG6hPLgiU7ugDstgftnjE 9wOyc+RklOOjwvdGQ+PHRkI DQ8bJru ORkpXGTkjY1aTPRjX8q4HsZ vHcX7PAzzF3SmchM5YUZbvG OjWMUxmZPDhX1jsgopn5pdr jogIzAw DVWrFOd7CTs4ADSnxOivJgW rOYR1KkU9UCZ4pSKwiM8alD jwrrdmmS0aMsq+TVJOOjwvd GQ+PHRk JAS3hJpwDKhuFADgxZ1xWVI oH2f2YlFsKtA5GUbtW4Qicj G3PXTzsAEwZLIvcCTGiN2th xzjk9nl bjuiFsZiMWZdYHo6NAn3POD yzSbbNwPsHDY2OsF4PKB8iE UmbO2jgSgkkhltjD1eEqo+U HR0WWZ5 EG79PL62A1KuCdywdIFyeDN +PHRhYmxlIHdpZHRoPScxMD ZmOxSoaYrhNJ6jGm6aQIQoB WNvbGxh cHNl (more content not included)... [facility] Office/Cl in Noteon 09-02-2021 Heart and Vascular Office/Clinic Note [...] to work. She has been wearing an [employer] Watch with ECG technology and notes that [...] after patient or guardian consented to allow [employer] to record this visit. [employer] mobile security specialist and provider reviewed before signing. ANAMARIA: [...] History Bipolar: Sister. Depression: Mother and Grandparent. [facility] Comment on above: Result Comment: Elec tronically Signed By: Jay DAVEY, Samir Rivera\.br\Date and Time Signed: 09/02/21 09:25 EDT\.br\Electronically Co-Signed By: Rissa Arias\.br\Date and Time Co-Signed: 09/01/21 17:11 EDT Coding Summary.on 09-01-2021 Coding Summary. CD:[id number] Gh0 bWw+PGhlYWQ+EV4CFHBbC56 hzXWhdD4HM1rTCU1UNXSSDD NYNK1ZID3suVA8GQywJ1Rnp iAv GxoczDSlUL29JWm8FZI5fDf hEXsxkP3fjYHyI1i8EcYyMA 99yT94GXsfDYHxAiI4JzYzu jsgbWFy T6gwLuWagQUlWor+PHRhYmx lIHdpZHRoPScxMDAlJyBzdH jpOB6yXi0jYEJfETLitYzzz HNlOiBj a8zmBEVfYTvvIK1cvAiyV6T vsUK4SHTss6o5Ae09nDW+PH DnPCE8hPuiDBvlp171VaOlf 4fkNZL8 rZPoIOkgZUV0B98ix8N0JIE kFCEqWEU9pSP4oQ1grWflbc pmN8HyxATfAsX0MEP6dGTqa Z8tvRac kwrcmR3qZts+L23VHE8OYBU TBO2WZhf8T9WsThywuPK+PC 24BYJjJR52xGSilAYix3hys Vb3ExUh FNBbYOV0aMfsQIodv0NiGYI bL47ozSCgv5S9GZGasZzutV VjKtLliSL6zP5uOXkdwlnst 2hvdzsn Zyfeg9rcgw48hI35V20mHXa sBZQeUBQ4FFBcJAHgcRvvbe 7gbJ1iWc0+EDstc7hdb3zyc Fh9EwBj BOCmieBuwSymHNO0r4ArUc7 9G3UugKqpo3YqWbj9im90iO Rra4U6xRU0DTnsZQMkpO2eP WxlZnQ6 ZIOmZpTkpV80dCZnQPxoAz0 txKxzfWnhHA3gBFGtdgbmZH IodF9rSKHsvUFexFzoZP6aX TBpbjtm e517IkZvGCP5ZGRcsNPrU8E enC0nXcQnYQGkVDQqN2PviM XmGDljA449IUsbWgG5MYJrl oJpN3Qt YRLnjPpoFwR5o0N7Ow8Cz5S wlxkoJVU8ODcsPFT6ZfH9Ob BtMsZ7Y0MjVwp6WOMghKayO M9rZ7Aa JOLsdpgbwundpRC6CVAqQOJ nfO11tAUhLFkeKv7zd9H1s7 19KHDwTVQqlI39Kt2yaWamK TBwdCBU lO0yaadkf4ezqtdyTdGcZNZ vAAe9HGm0UPWuxJtfDlLbXV N2EdL5VUW5dIBlfZ3hvLocq nzuaK7e Oyc+X80lwD2rUZE4UON6owm hXVIctzMePW98TM37O1ToXb wvdGFibGU+PGRpdiBzdHlsZ N4uVkUa n7nqd2TzCUkaI9MvXZYkPMz mMmh1PVAtWUQ8jQJ0kV6uHJ NbLFzar7A0mDO5L3JgntSxz y9jj1mp ITDjOFftR80rzVLrb8U0AWE dpSH2VCTdlUmkOxLcbW68Pg c+AAGfbSimv9HcUdlgx7jae 3wttSf0 PuQrMWHobiWgmHhvNZH8t7F iFv26J41yQGtbHXMbAGNcFP GoNRTuiCxshe4keW5aDw4+P GNvbCB3 dJT1wR4aAQOlPkP4AYpvU33 5GqHwqMBdDrqal9nbt3afmD r1JyJcPJJioxOvoLasCQX5f 0CgDo85 A90mMJdzQXTxVBGaUPIiJDL qmZfvrs8ulP0nAb1+PC9jb2 astz11tW95qVQ+WYDsCXT8n WxlPSdw POPmrC7zANabPxU4FTHbPrD hmW55xXVqFPwuRe4fbNajlP vuUX3iWPExdufgk997MrZvb 2xkIDEw tMYxCTlmLJY7X69ue3O6GUL rAADoZIC3wZX8wI4rnCblka ogbGVmdDsgdmVydGljYWwtY NfdH637 IHRvcDsnPlBhdGllbnQgTmF gMSg8E6WtKzj0NLEubQltHB 9rmHMpFKhhGt3nqZknlTzeT A7iFJHy lpgrl107ApFgn5iaBGNuiHT oETawJGG4U76ui0G3IOYzUI XlTFT6zKT8mW6qnZddwelnv GVmdDsg wxEzbJqhCGnhPAuuN977ITC viNqpKsQtpvGiQCVufLO6MT 92BA70aRUfb9P6nED5I9UoU GRpbmct kxjlaMY6XCNuPIEdoD85Xl2 esYzwMz7gMBAnYVO0SCFvpU PiV9WezM7yRuMoUCSwDVAoW 3RleHQt NNtyI411TQiyEiS5DRXbccO oF0XlPCQnbEkoAiN2l8V4Je 1WG3E5AZ19QX96bOGjq5O1w YG8B9Lh QVPtmznxxwameYQ0VUTyYMY yaF46Yr5cyBucHg7qTXJlHV K9GDRztTRmU6EttM2kMhDoM DAwMDAw J7XxbXCeNWzxL135SUwrItV 5BXKzyvVfZ4EqWEVptXpxUa O6d5G8Au3YGRy6JE97MF87b GVbf1O5 dOD9W1XvEWSdvvmrypezqOI 1PDDnIIKbjD29Rk3toKsrTr 8uVLJeEFS1QPHigSLjH1Ont U2eEnTc WUSeHHBlH2JhmYYkQBtkB83 0RDnnFkN1XZNwoqVuH8VlGM SlfIdjZcU0x2L8Rf7RBTIhW P22NOY3 vCG5RQ44BZ63M1BlJkoijQD ibGU+PHRhYmxlIHdpZHRoPS mjLDAbZlJkkCuaQA9rOy9dH GVyLWNv vOlwzYThNuIfb7oaHBPrWPx qMK1emQuqN3BqvLU6FPMpj1 k4Ke04F51sZ2SahLR+PGNvb PW9fVY6 mK0zAuTwMeJ0UIhzE286XnG kiRGsEzdqi0fbt2tmbCk3Ud D0VSCfzuIcrJmhLZT0d0YdK y12P82e IHdpZHRoPSIxNSUiIHZhbGl oux3ykB5sCp8+UVZpoJP0wX E2cF4jKpMgAuE9HIteO512K nRvcCIv Misqp5zgm7mppVo6NmHuZHS cucQbyEqbLUX5k3JuGv68F3 LfwOhgq0SeKxl9bg77fXHjg 6E9vTQ8 W5TpOILezxizzJLgtQpzII3 vOGXebynwLPMuiO8bVRNqN6 i5UwPlDgK3MMtbJ0FdpoS7E DEwcHQg MRioVCY7Z39nr1H2ECSaMMN yYVN4xBU1gX1ssMuyccshjR VmdDsgdmVydGljYWwtYWxpZ 246IHRv aXuxSWLnqN2fQPFmjDOqqYk iFG8lHXFmonfbVp9HM2QCOt wgSEVBVEhFUjwvdGQ+PHRkI ML3aNss QPitFGUubT8sHVMoH1h7PvB iMwY5HAjfE1OlTBXzgrxjIj 31aE4qNfMsLjU4CUlvU1Viw aJ4FCGp sGPwBMlgJQG2Y53rz1G2AEX oBHIoTJX1qQT3iB5qaQetqj ogbGVmdDsgdmVydGljYWwtY YxsH822 QXTsrHhsEmHdRhE7QxO9LQL 7J9YpIfx4KEYlpLydCH0hzG IxGBlnJr1ruBfcyBipQQ6sJ TBpbjtw HHRnxO1pCFBujLNxyKvkMM1 bDYGmpxddz374ZsWaDBU3HW QhkAOgV9FnxS3iYnBbPXMuV MGiX0Xt xXSnUTrvW679FHaxEgQ8YHS ulrQsP0HzRCWuzLyiFfO1o8 I6Bu8qXyEVQIBdliosgCA+P HRkIHN0 uQhzYTgwNAJasY2cZQTxY3r 7IfCjBnM8TZafE9IdZSRnbk cnXn54lI3hCxPiRiD2VGgvU 9LsixH9 IJBbbJOlTKbqLDI8Q87od5F 5DPNcZNRbQJD6fSB5sH0bzR lnbjogbGVmdDsgdmVydGljY WwtYWxp K734GNIrfPfjSnRbvDQdDPn vdGQ+QYLnWTF0jRskJOqgIV ZwrZ2wRILbJ2p8DlEpPbR4X TpyU5Pv OKPrzqlsLj16qI3pMgDfPoD 9CUvzI8ZwcuH4ATPseOZrOA phAAE3S52nn3H3VMYuYLNzD RX3hGA5 wQ6uqAcnwlawtYBmiJsqkqG cvRrxYHvzRJuuG020IJBwrH muNf14iNElkWhgfjC6F3BeV jwvdHI+ LW17RJZrAY71zIZrpUGno5f gnFo3ViTgTRFeVES3gRquHD nox7JcWWWeP80erGBkj0J7U GNvbGxh pKJfWdKgrGX5zR8zUVxrekh pn8dchgvlGkdpw7ygbz61hD 56M08wOQutSWJnXTPkRWVyL HZhbGln cw0haL1uWs1+CWLnoST7yVO 4aO5jCsErDtR6AUczA813Os OueQNdTuvhp9ykc4ymmMd3V jIwJSIg ukDjcMmkUWN4x6YjSc12N10 sIHdpZHRoPSIyMCUiIHZhbG jmbb2cyL6aTh5+PH2sl9pyk n74uK34 dHI+UKVvOQO3nXokAFwdPIM aeM2qOKmpYuE2MSDsBhAfcT 10gBQdSLtzRy7igUmlxHjuG O2fCAOa uwoho391BcJmj9dzWOImzLZ gVPicGJZ6E35kc0S5WEWrZW OoKFE6lAN0gF8vpPfzcfzbj GVmdDsg hdTcpAswTZypGIdyV043DVY enEupKjWyxIUrS4xhzpTYUQ 1lOjwvdGQ+BCGtJIT7kOxlD SdwYWRk fF9hMWYnZ1b5VyMfQzH4ZBi lZ5KqleS6DGNcuHQmLTHzoB FPhL6ugzyut7xkyaqwFiGtH DAwMDt0 MDu9QCJjpNfoXuEoGGI5RaM 4FGY2tJNykZ6boIzclyljcY 9wOyc+RklOOjwvdGQ+PHRkI RD1xIdm CVdlNBZzjJ4oWRBdU1t5NrG oUoN3FFyqU9NcazY9WQXquV EtSWHbcDXToE8sagckc6hdh jogIzAw SYYvVDg1PSl0VODlcSlwFnT pTCP6VuS0PJA8hTTsmF3wnJ exffpvdX3lIwh+TVJOOjwvd GQ+PHRk QTV1bGjqIHelJPKskE3hCUK aP8c7WbShHuX3TMtbF7Gljl W1OGSmaOTrJGEjpUVCqT3ep csji1yp oadwOrOyWEJkXHq9LRz5KXJ fiEyyEwEcSHW8McF5ZPL1lD CqnV7jeYrjhpizaV0cDny+U YK0CXH4 JK41UN77O1AqOuqxiCPyxKT +PHRhYmxlIHdpZHRoPScxMD NhIhReyNzaML0kOf8nGWUqL WNvbGxh cHNl (more content not included)... Normal [facility] Consent for Treatmenton 08-16 Consent for Treatment [id number]#1.00C D:127 Normal [facility] Progress Note-Physicianon Progress Note-Physician [id number]#1.00 CD:127 Normal [facility] Holter Monitoron 08-27-2021 Holter Monitor 48-HOUR HOLTER [...] BY: Robin Salazar M.D. ls Dictated: 08/26/2021 [id number] Transcribed: 08/27/2021 cc:Samir Thompson M.D. [facility] Comment on above: Result Comment: Elec tronically Signed By: Martin DAVEY, Robin Galan\.br\Date and Time Signed: 08/27/21 10:21 EDT Holter Monitor [id number]#1.00C D:127 [facility] Consent for Treatmenton 08-16 Consent for Treatment [id number]#1.00C D:127 [facility] Coding Summary.on 08-11-2021 Coding Summary. CD:[id number]:[id number] Gh0 bWw+PGhlYWQ+EL9WXDHqM31 bhDFzoH4TU5eLUX9WHKSCZH UKBS9EQN5gkJT9QPwdM5Jmb iAv IfmaiXYrYW04MIo0XMF1bWg iBHxshB2mzKOmG7c1ScXxEL 37dM54PTuzXECzBpH8FeJsy jsgbWFy D9pqSvXgmLKkCta+PHRhYmx lIHdpZHRoPScxMDAlJyBzdH rsWQ9zMa9iYWEoZHAzaRmzf HNlOiBj l7nyATMxAZkpAS2toCnpW7R prEE1QZQab8r0Jm36vTV+PH SgAOX9qHkaMYjyu070PtOvm 2rbUIO6 cVTzPGxlNKI9Y60sk5M3LCF jJNBpOBH4qSX8xU0sfSafis qhS1DqqCVaOrU8QXQ3gJJqv N0exBec fekigT2cGkp+R78HWV1KMOA EDD5EVjs9B8BsPapnrTG+PC 00OVTsYW63xJAtzDHmp5bft Fr3AeOp REVwGOK0tSysXKjbo6KqVYH qY74jpGOct2P2MACytUnmiO EfHfQbcUY1rB8qLCaisyjfm 2hvdzsn Olamr5dbuv16uF77U76fYBh yOELtEYZ6BVPvQXAksVkaxd 6vaF4lEx3+XGnsa0ium5qvq Tr0IgYl IUFxbpDflWbwUSJ7y9VwUj4 4C0BnxZglq6AjSph9vi60xC Qmo0T8hSF4XNztQCZyjM9bU WxlZnQ6 BQRuCwAkiU59iUArTUvtDp3 kfTryoIyiUR7iVMPqlqzzUF VptU5tCNQlnYNiaIyoVW9wI TBpbjtm b708RgBtJXG3NLEiaVNoI1O stF2qLqIyNJAsDCHxU0IkgA IrOCqqH802DRrsOcK2XDQxh nHfD8Pm DUViyGgqMtB4e1O1Ch4Ul8N lizreCDC0ZQrdZBO9AsC6If BjOiS7A8VuYou7XKVwzYusZ K5fR2Yo FKVdbvjyvbhrjBU7SROhLIT snS13mZQkRAinZk4fq6J5b9 75XVBiKOOyuR38Aa3spQxfG TBwdCBU tP7zuslnm1bycjxbOpMsMMV oTLb6LBp9XYVunIrxQeKbUK E2FzD4SWR3fOFfaS6doLjsb gceeS5b Oyc+B88wxV8qOHV4DAW2dgh lZYGyquZxQP56MF26W3YnCx wvdGFibGU+PGRpdiBzdHlsZ X7rDeEi u5zoh5CpGQxaE8YqZYSxCFh oGzu2PLYtIWL8zLP4zU4bAD XyAZtqf5T7lRQ1R1PcryFut z6en6hy ENGyPKsvE60ktRJhd9M6JWT hjOB9FRIozKlbOqWcmT67Fs c+DLOzfEsaz9NqHhctt4ooc 7qkoRj2 TxBjSJGjhfDlbFqwSOO5r8Q uUd78H51cODpnHZZaSVPsOS RyFQEhsEhikt4ukH3sFs4+P GNvbCB3 vJY1bF0bFNIqTrD6OEbcW06 6QvEuxKAiNbkhv9hwl5arlQ o5KsNfLGXikxXceSssTRR1s 0HcIf45 O09qGYdlJMIqLEYcZJFeVDR mdMmflc0zzN5wHi0+PC9jb2 nbgt63eR51dCI+WRFwTYW5w WxlPSdw YRPqhS8dLVjnCfM3IGEzUbY wsJ26hRZvSFpsFs7ysKebxG xxVP5lSAQijypsx978IdWjp 2xkIDEw xQHyUXjiNQG6E24ml7R0YSF wXWZyUTW5gFZ4eE4tjLhzzm ogbGVmdDsgdmVydGljYWwtY VzyK971 IHRvcDsnPlBhdGllbnQgTmF yPGp1H7GbLgc6EWUaiMkeIF 2prXDaDCwoPe2uiYnmzFhiZ S5dJQXu ocktn747IyBlg9mfCFHdnZL xJTlcVYK2Z92xm5V8DWXiJC ZlWID8cAY1sS1rdRonkktvb GVmdDsg xhOagQdpGSzwPNblI398MBJ qhGmzTyGgqeCtAKBzkPC8YE 90GW08gYAxo0X8cZB8E7LkK GRpbmct bupwwGB8ZLUmXZGtmU23Ds1 ejUpkHs9eVIUyJHG9UUYtzC YpC7YfkK0tIlEwCSXtIXGnI 3RleHQt LEjqC209WNgbJvC4BVQppgJ cN0CoJDQhbHwxZeA3t4H9Ar 6OM1M0PT61WB20hAPqm3Q3z UZ7E2Jk QOFjhdyjqgtjlBJ5NTCnQWS rtI68Mn3uyMpoEu6iJXUtCO C8RGBogEGvN8LtnU5yAsYqV DAwMDAw K3LbpYMzXOhcT808HJjmPwJ 9UUHgvvYqH2KxMURnkPsiUa A4s6G6Lf6QCEt7NK54TX44a PDnz4N1 zRK6J4RbVPKfmbrryqnlpKF 8JGKrFOKmvA46Nx9pvJdeIl 3jHYLgGLX3GSShiZCzK7Bwc V6aBnFy JDLtXWYaV7OvxPTpTTygK71 5YLeyQqY4TKWvsgCiC1KvQQ XesYlzWhZ2v7N7Lt9YQGKeS A63REL1 iZE8UQ54OZ88Y9WeNgqlqCQ ibGU+PHRhYmxlIHdpZHRoPS frUMGsNiBuqZsjCE4tCi4iN GVyLWNv fMolmVBsKqJzw6siLNFzCMa zIW4byLhyU4PbjHZ0LFGsu9 q4Pf29E68mN5FtkJZ+PGNvb AW7nUM7 oQ6yVdKkBcT1PFddS797CsG qlVTwTcoap6guv2diqTq3Pv Y1ASRssyOdxPrzODY6n7ZbV p75A60e IHdpZHRoPSIxNSUiIHZhbGl fcr1vnK6nTl2+BASslXR8cU U3xK7kPlYcQwH0KHieW454O nRvcCIv Zjpgz2mly3rnlLn1MlIzAMA nzrTuyZsyLFE3g6WzQh03C5 VpiHkjr2EhWcx0fo05oKDgg 9U9pAQ9 X2UeFDSlizpgvXYjeCcmGX9 aULCsbkriTSQsdF0yODHiU3 q8FsTlOkE1VGooJ1UsimV3V DEwcHQg ELcdATW3T47ay6M4VVNrSKI eARX7kSE3jC0mmHfagzwxdG VmdDsgdmVydGljYWwtYWxpZ 246IHRv xWxyIMHybI2oCMYryKQfmGd tZN6iEYYmpvqrIb8WY3BJFj wgSEVBVEhFUjwvdGQ+PHRkI CN1qTkh OHedISFhdB1hBDKsA1x3QqV xThZ8ISkqU5HjLNGcqhnxLa 59rE1kKlAsJjM1OZncS3Dlv sE5FETi jLJxZUbyTEN2B62xa1R5KCQ sZIHoLQB8jHC2xG3byCvxqz ogbGVmdDsgdmVydGljYWwtY ZunT418 VESgcDyxYdEnKjU2JpY1KWE 2N5SoCqr4XYQhuVsnVC0paF OvKUsoWi9cxJadvOpjCV8rD TBpbjtw MSKiqG1dPQScnVGxrIbfQQ3 pLLLwgblhs515NoApSXE9FZ FrfJBkV9ZwlQ0dTdIjSLAnD XEhB5Fp aCPdNGssJ010CBpuIfU2OBY dfjXwF8SzNWTjgRgjWlJ1d6 C7Fd1eMaKICBVsdwfsfLP+P HRkIHN0 dZmhHMtdLDEinG7nICOyT6o 9OhTnUuC7ZGabL1NbRFOdgo zyZk64yW9hSkHlPjL6IQxrI 1EfivH9 BGPsxRYxHFalROU7V37ug4J 6OORwDSEnFKP4zAQ5yW6uyS lnbjogbGVmdDsgdmVydGljY WwtYWxp C263DVAwcGkbEjOgeYJzCJs vdGQ+RDEdDII0sIwuEAmgPB EqoP2cZVHbO3n1IiFdSgX0H JzeY5Hh KXZxggybHb50pN1eOeFrMzV 4GJzlL0BudrN6JKDunGYwZS jzATN9Y00lj6S7YZXxKFFoL HR9qDT4 wP7jbAmgiafakOCfrOgsloJ kyZloRXupVBhbU845WWMxzB grPb81nDSuuTeuolG2C9NoJ jwvdHI+ EY54ELHvWE28tWVewYNuy2r hrJn9BgYzYKOlOLV2rDwmXK wvw7ZaKIBsJ93krQSbe3J2K GNvbGxh tIZbWpVcsLC9sT7iBQfoeev ur4zdfojxJlhge5xudm12gO 41O96fBNxeTTIxIVItJGCbK HZhbGln aw0nnU3sQp9+AXMlcQM8vZM 3nP2rFkDhGzK5MAheR954Vj UsvOUcHxqmn2khi5cczNg8I jIwJSIg caTznLazUBA8o7CyLf82P31 sIHdpZHRoPSIyMCUiIHZhbG phje2ctK5lQj7+SZ0ry0ahl u45xW52 dHI+ECDiLHT1tYruDWbgJHW elE2iRKgyMmA5SQDxYkQtyE 69zGKwMCupUz7akJgggJygE B4jCZTg ijyed202GrMka2fyPOPiqKN iNScxUFQ5S92tr5E7HGSaLX NjQLD0cQN0iZ5zkAsebyqen GVmdDsg hrVloGebJZyqILuuK966XZM myFpaCiDexVTkV1qdecKBCC 1lOjwvdGQ+ESLnLEE2sNnpO SdwYWRk lE4uTRXyX0n5KdBsPmZ5NEp gG5VqwrQ9MEYbzAZbUBIyiV EClU6wyesuf5qhcxwjTeUxS DAwMDt0 MUm4DPIoiTmqVhPuTUS3JzY 3QMR7sYKqkQ9tcWvtixiicT 9wOyc+RklOOjwvdGQ+PHRkI FY9cWam DLutBXLcuQ5rDYFdF7u4SqA bAgL4GWgxY6HggdV6WQLzbV ClGTJoaPSOqE0eltusb5iig jogIzAw AOMaBCx8GCg6RHWegZklToO zLCR2VjW9YSP7rEPzaB1uwG wuvxpolW1bUef+TVJOOjwvd GQ+PHRk AOL4zVuxGRgwHRYcvQ0yIJC zI9t6CvHeGbE7FAbuD7Yncq H0KTOvoZCuOCYwlAKPgJ3qe fcvo1nr ktpcBtZxJQZhXZg7CXx6USW ctGpvPzSqGUF2EqG3WEP8lM ZbdP9bwGpbbgrjpS3qZsl+U WX7GTE0 KB96IN33U8UaVsuylRVffAV +PHRhYmxlIHdpZHRoPScxMD UfXyRihBixSX1dTu2tTGQdN WNvbGxh cHNl (more content not included)... Normal [facility] Stress EKG Tracingson 2021 Stress EKG Tracings [id number] 052 [id number]#1.00 CD:127 Normal [facility] Consent for Treatmenton 07-18 Consent for Treatment [id number]#1.00C D:127 Normal [facility] Coding Summary.on 08-03-2021 Coding Summary. CD:[id number]:[id number] Gh0 bWw+PGhlYWQ+OH1QOPEkP97 ruZRfqK5ME5yPRR2AWYPJQZ IQPU6WAQ1svST0GNokZ3Gcq iAv KufhcAPtPB13PBm3XKX8xQc mBKoxgX7cdPFgW1p3HlOpCJ 35fB21EGodLVFgMhJ6PcYxb jsgbWFy L3vbVqXjkXTeZzs+PHRhYmx lIHdpZHRoPScxMDAlJyBzdH wpMA7hQl2bFXDbMQDqmCtnh HNlOiBj i5qaIHLgTTkxLJ2flDeqP4G foDK4ESGcw1f8Tw23cSN+PH RvSHL8iSwmCKeae008BwFul 7qrBAS7 aMRjXMisOAM5D71tm0P1BBZ yTWFdNPU8tYJ6nO7phJlvrn nnS9SjmCItGxV7WMM1uWDkf M0npTqu omqmyO9yIjq+U47SNJ5FKDT HQB3WBup1Q5MyZsxmcRZ+PC 14GSSnND57fWFvrNNxn9vru Sy9IpNe NQVkPHZ2tTyaGRsxh0IuBXR sA64hgMWbr2W5DMTjuFgiwK KgHwHiwXB2oA0bQGfynkmnd 2hvdzsn Wspam4euzz50fN57E96sLSl oRCJgEKF2IXLdLWQqbMxcie 5diD9rAy4+DZggh0poe0udl Du2EaXf WMJfqpNdzZzkQEC0z2YrTy0 4B3VmnFudu8MwZqr8qn97uL Iep4J8mIY7HZvtPOKglV4yT WxlZnQ6 VHDiWjPscK29iNNsEZlpRf0 cwDeyuXgrXZ8kJRDzqhmzWD YrwO8gIVYbrOVttYfqAO0jY TBpbjtm n837KuHeCDH3TBCjgLMzW4W dxI0tMkZdSXFfFZDhS0AllU GkWRguT535YOlsAsX8GIWho pHoQ8Td XLVtoItqRnZ6r9P4Dx3Or1Q ublljFKI1UKmiQYN0NyT7Ta PqIpY3G6MiGbx0RBYfmFnoW L3oR2Sv WMQssnqlhhxcqKX3KPWsSZN tiA34aSEyXFteXn2ho0C8g1 36HDQeYJLlnQ17Gg5zxVqfT TBwdCBU uY0hfnxml2ynigxkYqCnJZQ yVTi3AYl4EKAifDzlPyTnSD F6IbM8SEL6dXKpqR5lyBcbn wvrkM3p Oyc+O92acI3qPQT4EPV0xle dZVPcpaNyTL19NT25O0EcVi wvdGFibGU+PGRpdiBzdHlsZ C3uDkWo w1dob7SyTPnaD0AmMVMtJLt kMip2KQPrXIT2yWB7wE8gTB VcDYxck4U4rSZ8B3MozbRyl x3ms3yj DOVnCEveV38izDWwk2T7VZS dgEE5MFEcjWgqIiBmjK45Ul c+XMRsjHusu1GaEbhzk8vkk 4xapRk4 FwUhBQDsmpTatGybCKO9y5Q vYg59B76eFKvaEPScENSfSU TrECDbmTdsyz1zoT2sXr0+P GNvbCB3 vEU5vC2hANMbKwL5KXoqQ79 6RjSmhIYoDiuwg4zwe1uvvB f1TjStIEMbedGjhBcgMRX8x 0BmHl48 S01vVEucQKZaWXPcEWNeFJU ccLdqfp6yeX7uAf1+PC9jb2 wpey67bR23cXB+IYDaEKM7n WxlPSdw WZGtwT2xFFwhOmT9AMFcRbS yiG70tSUcYNsoWl8mmSvvoA kfBZ5cQWMxbeass321SvTtq 2xkIDEw gEIgYUmbYEL0T73dz0W5XWA xJGVuKWY7rTH2uS9rpXukwe ogbGVmdDsgdmVydGljYWwtY OdkS744 IHRvcDsnPlBhdGllbnQgTmF hXMr3I7OxQfi5AXZhdDhrCL 7rmJAmZRjgZl1yiKnxgPzxV C2pBPUr askdu371YgOiq4maKKNfeTG rYIdzSPE2N77wu6N3TOGcXT IqWIU4ySX2sD7ycGhdbgpho GVmdDsg geZsmNdeHLnkRUcgI672LSV qcIbsAoQcbvIqDAFhfHZ7RO 65FF49mNPdl5E1lHQ5I3LoD GRpbmct mxqysHD4WESoHMXnlX32Ch5 zcCwlLb0lXDLvKHX2FIBkvO KaF3VyiK1xSfZiBFNoRONoQ 3RleHQt VJszI607ONmqGqJ0WUNauxA bZ7LzKSFkaUewQgL0l9D4Ig 7LZ3H8GB39DF45pXPcz5Z7x XA7D0Eg GIGjcwafmwdefLB2ATJnUYM lbB63Hf7gwRkoDe2aKOBoPT N7WTCfxGMqE6JqvL6vSrNsI DAwMDAw M8NguULvSFlxF636MClpSjB 8QDGvrkHsM5JmFNOkgZdgJp T7f2F7Ys4FODv4FN10CA78x VAha8M0 oMB2Q6RqCHZajfkibpjqqKF 0UPIiTENpvB79Tu0bfVkjRo 7bKDFnSIS4GVZxpRJbD7Hjb H0zTiFp GPIyXLXcR1WogDYdWLenH59 5PRsmDgZ2OGQiqgLxU2WcAN FliHvdVxK7k6A7Vk5KIZSwY M34FIX0 qEY5IN40ZE09E3VyMlnscCH ibGU+PHRhYmxlIHdpZHRoPS plHHNhZyBizEoaBR5hVq7yA GVyLWNv mAydvMKkScIhf9lxQQHmPJh eII4yvIanK1KjaQL0SBMik2 l3Tg60A44xY5JdvMS+PGNvb MW5iDG9 lS5eOkTeGaH1OPvwX592CaZ uhMOsGkkul7ulk4yncOv9Pn T9LAZgstNipZzzOKM4u7UiK w14Y44z IHdpZHRoPSIxNSUiIHZhbGl hkx7hhF4jPv5+YEOoeFG7rB E2qT1xIdFmNhT3JJzqX455K nRvcCIv Hzkdw3zrm7oyiCi2ZwXbYDV mnjKocZhmLQH4v8DjWk62H1 ZpuLttd9ZrPft8od43vYEcr 7M2oLN4 W0JiZBLlvoyczYYnqHdeTZ9 nUPKznameHQXtqR6hBLTrW8 o2EeLtRoW8NCdiL8EhlzL9I DEwcHQg SLjiFZA5Q24ei6W5FYKfHEU pAEB0rTR6fV6clDjyjvmlgL VmdDsgdmVydGljYWwtYWxpZ 246IHRv yUaoVDEtfR5dTNJniAEpeCy eEP6jUEWecjpsSo2JE5YOAw wgSEVBVEhFUjwvdGQ+PHRkI TB3iFkc ABiyKVXlkL8oMVFqA5i0QpR pRxR4UDldT1AuMTKfdakmTb 11xG5zVqBqIpB0KQbpU1Ebb fX3LIFm wGNhMCdkSMZ8K19nn5F5CDZ xOZHgTLN1tZN7tZ1vhGksmn ogbGVmdDsgdmVydGljYWwtY GlcA510 ITRtuVmvIoUeGkM0CjF0BPE 4M4IdWlw2ZTTgaCkoQC8epI NlNUgcNh7wyQwkhXgdHZ2oC TBpbjtw XMJyjP1yRUArnSUruEjzNJ5 rALWuscgud409DbObFZT6JX QceAYeD8OtiL4sNxFhXLRpH KIuG1Of eEByBNzjA732LBvhPzS8KEO ynrWkP5WlQJKdvMygBhZ6v0 W2Ko1eTdHIJCBqcwnneJD+P HRkIHN0 uWssFBhkZCLusZ4nBOHvO1a 3XrUuQyL7BSnxE3NpSPZadi naTs50fL8lNoGkOcM9ITsrV 8NsbdU1 WHKjiSBfDVvbVFU9R05ah5K 7KEUeGDAxIOO1bVS3yQ8jkI lnbjogbGVmdDsgdmVydGljY WwtYWxp G632FGQtjHggPrCknWSiKQo vdGQ+VPXtNDN0oHdoSByjDA QukS2aIJTnT2l2JdDqLsJ4K GuoL3Gr NUIhvnqkQb36hD1xKkGaDgZ 5LYpgQ6CcroH0HKRtyPDsKE bdSIZ1H71oc7T7JFGqWAWeM IG1bIB7 tB6hkRyfjucprNDwiUjnzcV grJjrRHivPQchJ686CZKgyB ioGk10bKHyxZurcwB4O8KcY jwvdHI+ FM40EURiEN66nEEhpUGlw0d lhNm6ZgDfHFYvGSF4eYohIC fau6BnUUPvH48jeQExn5R2U GNvbGxh uBFgLhIvdPC3lO5kSDyxhyt gj1spdzqjPqkkq3csas33jX 61K77vXJsoFNDaTNEzTDVmI HZhbGln ss4zkH8qDj2+HGWjyFC1vKR 8lS4sBsCvMeP2UEvwX866Js XrzYXxSnozd5fnk7qhkPd7H jIwJSIg coWdjSkcVDF5d3SeId48T32 sIHdpZHRoPSIyMCUiIHZhbG lcop8zeT9gWx0+KZ4oy6mpb z37hM93 dHI+IQTtKSC1iAqqUCxaMFZ vaI8hKIznIpH9BJLpSqIptX 16lGMcXCcrOd5lrRwvdHgiY C8dVDBz adlhj643SvXmw2qfJDHnjPV eQBxvFWQ6U89fo2F7LMXrQT NqSFM1pNT6hA1lhJcsfyseg GVmdDsg sfWfaBtjCLagRQogD639HRO utIfmAqUzdDAjR6eyobIDVZ 1lOjwvdGQ+GNDpLQJ1bPqdV SdwYWRk aV3rIFVnT2j3RkGrVqO3RMn eT5JnluY3DRJjmPNuTIImcR QGnU3uqsmsx0qnrfqpFyKtW DAwMDt0 OXx6GXRmwYiqFuIqCZM5GeF 8BJD6hYKsiR2opOqzjenqbI 9wOyc+RklOOjwvdGQ+PHRkI HN0yBdl ULyxCNXzrR4lMWRfS0p3IzC cFgY5JRqrC8AatwC4VKVlnO PiYFQgjKGGnG9tnpjoh7tec jogIzAw FJIkCAh7CBk8PALeuKkkBlU eCEJ6LsI8POG3dXGsiH3jeV qvascvdC6pHkh+TVJOOjwvd GQ+PHRk PSP9hDglJQciOHHjjS3uGBB fT7v6QxLfUiT8HAynB0Faki Z3EFAwsJXyKPPxjEKKkW0dg dfia1to gvlrUhQvUQJkZSr4GYf1QFK pcSxmRgVwPNS1JdE7SAX1mD ObcJ6ehVibpbmbyN7rGyz+U VG0OSN5 SA08HD64I5GuKdrjwXDuyUX +PHRhYmxlIHdpZHRoPScxMD AhAtVbfRntQO3wGz5cKNXoJ WNvbGxh cHNl (more content not included)... Normal [facility] Progress Note-Physicianon Progress Note-Physician [id number]#[id number] CD:127 Normal [facility] Heart and Vascular Office/Cl inic Noteon 07-27-2021 [...] rate increases with exercise. She presented to [facility] 2 weeks ago for suspected nephrolithiasis [...] after patient or guardian consented to allow Stefani Carrion to record this visit. ANAMARIA mobile security specialist and provider reviewed before signing. ANAMARIA: [...] Never [place] (more content not included)... Normal [facility] Comment on above: Result Comment: Elec tronically Signed By: Jay DAVEY, Samir Rivera\.br\Date and Time Signed: 07/27/21 10:44 EDT\.br\Electronically Co-Signed By: Rissa Arias.br\Date and Time Co-Signed: 07/24/21 16:24 EDT Consent for Treatmenton 0 Consent for Treatment [id number] D:127 Normal [facility] Referrals Officeon 2 Referrals Office [id number]#[id number] CD:127 Normal [facility] BASIC METABOLIC PANELon 04-19 Anion gap [Moles/Vol] 8 mmol/L Low 9 - 17 mmol/L [place] Bun/Cre Ratio NOT REPORTED [place], [place] Calcium [Mass/Vol] 9.2 mg/dL 8.6 - 10. 4 mg/dL [place] Chloride [Moles/Vol] 105 mmol/L 98 - 10 7 mmol/L [place] CO2 [Moles/Vol] 26 mmol/L 20 - 31 mmol/L [place] Creatinine [Mass/Vol] 0.67 mg/dL 0.5 - 0.9 mg/dL [place] GFR >60 >60 mL/min [place], [place] GFR Non- >60 >60 mL/min [place] GFR/1.73 sq M predicted among non-blacks MDRD (S/P/Bld) [Vol rate/Area] NOT REPORTED [place] GFR/1.73 sq M predicted among non-blacks MDRD (S/P/Bld) [Vol rate/Area] [place] Comment on above: Average GFR for 20-2 9 years old: 116 mL/min/1.73sq m Chronic Kidney Disease: <60 mL/min/1.73sq m Kidney failure: <15 mL/min/1.73sq m eGFR calculated using average adult body mass. Additional eGFR calculator available at: http://www.[employer]/multiple_crcl_2012.htm Glucose [Mass/Vol] 99 mg/dL 70 - 99 mg/dL [place] Interpretation and review of laboratory results Abnormal [place] Potassium [Moles/Vol] 4.5 mmol/L 3.7 - 5.3 mmol/L [place] Sodium [Moles/Vol] 139 mmol/L 135 - 144 mmol/L [place] Urea nitrogen [Mass/Vol] 5 mg/dL Low 6 - 20 mg/dL [place] Basic Metabolic Profon 05-08 (cont.) Normal [facility] Comment on above: Result Comment: Aver age GFR for 20-29 years old: 116 mL/min/1.73sq m Chronic Kidney Disease: <60 mL/min/1.73sq m Kidney failure: <15 mL/min/1.73sq m eGFR calculated using average adult body mass. Additional eGFR calculator available at: http://www.[employer]/multiple_crcl_2011.htm Performed By: #### C BC, PT, PTT, BMP #### [facility] [place] [address] [place] [id number] Tour Agent: Casey Marques MD #### RICKYT #### [facility] [address] [place] [address] Tour Agent: Adolph Diaz MD Anion gap [Moles/Vol] 8 mmol/L Low 9-17 [facility] Comment on above: Performed By: #### C BC, PT, PTT, BMP #### [facility] [place] [address] [place] [address] [id number] Tour Agent: Casey Marques MD #### ANSAMMIET #### [facility] [address] [place] [address] Tour Agent: Adolph Diaz MD Calcium [Mass/Vol] 9.2 mg/dL Normal 8.6-10.4 [facility] Comment on above: Performed By: #### C BC, PT, PTT, BMP #### [address] [id number] Tour Agent: Casey Marques MD #### ANICOT #### [facility] [address] [place] [address] Tour Agent: Adolph Diaz MD Chloride [Moles/Vol] 105 mmol/L Normal 98-107 [facility] Comment on above: Performed By: #### C BC, PT, PTT, BMP #### [address] [address] Tour Agent: Casey Marques MD #### ANICOT #### [address] [address] Tour Agent: Adolph Diaz MD CO2 [Moles/Vol] 26 mmol/L Normal 20-31 [facility] Comment on above: Performed By: #### C BC, PT, PTT, BMP #### [address] [address] Tour Agent: Casey Marques MD #### ANICOT #### [address] [address] Tour Agent: Adolph Diaz MD Creatinine [Mass/Vol] 0.67 mg/dL Normal 0.50-0.90 [facility] Comment on above: Performed By: #### C BC, PT, PTT, BMP #### [address] [address] Tour Agent: Casey Marques MD #### ANICOT #### [facility] [address] [place] [address] Tour Agent: Adolph Diaz MD GFR, Amer >60 Normal >60 [place] Comment on above: Performed By: #### C BC, PT, PTT, BMP #### [address] [address] Tour Agent: Casey Marques MD #### ANICOT #### [facility] [address] [place] [address] Tour Agent: Adolph Diaz MD GFR,non Amer >60 Normal >60 [facility] Comment on above: Performed By: #### C BC, PT, PTT, BMP #### [facility] [address] [place] [id number] Tour Agent: Casey Marques MD #### ANICOT #### [facility] [address] [place] [address] Tour Agent: Adolph Diaz MD Glucose [Mass/Vol] 99 mg/dL Normal 70-99 [facility] Comment on above: Performed By: #### C BC, PT, PTT, BMP #### [address] [address] Tour Agent: Casey Marques MD #### ANICOT #### [facility] [address] [place] [address] Tour Agent: Adolph Diaz MD Potassium [Moles/Vol] 4.5 mmol/L Normal 3.7-5.3 [facility] Comment on above: Performed By: #### C BC, PT, PTT, BMP #### [facility] [address] [place] [id number] Tour Agent: Casey Marques MD #### ANICOT #### [facility] [address] [place] [address] Tour Agent: Adolph Diaz MD Sodium [Moles/Vol] 139 mmol/L Normal 135-144 [facility] Comment on above: Performed By: #### C BC, PT, PTT, BMP #### [facility] [address] [place] [id number] Tour Agent: Casey Marques MD #### ANICOT #### [facility] [address] [place], [place] [id number] Tour Agent: Adolph Diaz MD Urea nitrogen [Mass/Vol] 5 mg/dL Low - [facility] Comment on above: Performed By: #### C BC, PT, PTT, BMP #### [facility] [address] [place] [id number] Tour Agent: Casey Marques MD #### ANICOT #### [facility] [address] [place], [place] [id number] Tour Agent: Adolph Diaz MD BUN/CRE Ratio NOT REPORTED Normal 01-05 [facility] Comment on above: Performed By: #### C BC, PT, PTT, BMP #### [address] [address] Tour Agent: Casey Marques MD #### ANICOT #### [facility] [address] [place] [address] Tour Agent: Adolph Diaz MD Staging: NOT REPORTED Normal [facility] Comment on above: Performed By: #### C BC, PT, PTT, BMP #### [address] [address] Tour Agent: Casey Marques MD #### ANICOT #### [facility] [address] [place] [address] Tour Agent: Adolph Diaz MD CBC WITH AUTO DIFFERENTIALon 05-08-2020 Basophils (Bld) [#/Vol] 0.06 10*3/uL [facility], [place] Basophils/100 WBC (Bld) 1 % 0 - 2 % [facility], [place] Differential Type NOT REPORTED [facility] [place] Eosinophils (Bld) [#/Vol] 0.35 10*3/uL [facility] Eosinophils/100 WBC (Bld) 3 % 1 - 4 % [place] Erythrocyte distribution width (RBC) [Ratio] 14.7 % High 11.8 - 14.4 % [place] Hematocrit (Bld) [Volume fraction] 38.4 % 36.3 - 47.1 % [place] Hemoglobin (Bld) [Mass/Vol] 12.0 g/dL 11.9 - 15.1 g/dL [place] Immature granulocytes (Bld) [#/Vol] 1 % High 0 [place] Immature granulocytes (Bld) [#/Vol] 0.06 10*3/uL [place] Interpretation and review of laboratory results Abnormal [place] Lymphocytes (Bld) [#/Vol] 2.21 10*3/uL [place] Lymphocytes/100 WBC (Bld) 21 % Low 24 - 43 % [place] MCH (RBC) [Entitic mass] 26.5 pg 25.2 - 33.5 pg [place] MCHC (RBC) [Mass/Vol] 31.3 g/dL 28.4 - 34.8 g/dL [place] MCV (RBC) [Entitic vol] 85.0 fL 82.6 - 102.9 fL [place] Monocytes (Bld) [#/Vol] 0.71 10*3/uL [place] Monocytes/100 WBC (Bld) 7 % 3 - 12 % [place] Platelet mean volume (Bld) [Entitic vol] 8.6 fL 8.1 - 13.5 fL [place] Platelets (Bld) [#/Vol] 256 10*3/uL [place] Platelets (Bld) [#/Vol] NOT REPORTED [place] RBC (Bld) [#/Vol] 4.52 10*6/uL 3.95 - 5.1 1 m/uL [place] RBC morphology finding Nom (Bld) ANISOCYTOSIS PRESENT [place] Segmented neutrophils/100 WBC (Bld) 67 % High 36 - 65 % [place] Segs Absolute 7.30 [place] WBC (Bld) [#/Vol] 10.7 10*3/uL [place] WBC (Bld) [#/Vol] 0.0 10*3/uL 0.0 per 10 0 WBC [place] WBC Morphology NOT REPORTED [place], [place] CBC with Diffon 05-08-2020 Abs. Basophil 0.06 k/uL Normal 0.00-0.20 [facility] Comment on above: Performed By: #### C BC, PT, PTT, BMP #### [address] [phone] Tour Agent: Casey Marques MD #### ANICOT #### [facility] [address], [place] [phone] Tour Agent: Adolph Diaz MD Abs.Imm.Granulocyte 0.06 k/uL Normal 0.00-0.30 [facility] Comment on above: Performed By: #### C BC, PT, PTT, BMP #### [address] [phone] Tour Agent: Casey Marques MD #### ANICOT #### [facility] [address] [place] [address] Tour Agent: Adolph Diaz MD Abs.Neutrophil (Seg) 7.30 k/uL Normal 1.50-8.10 [facility] Comment on above: Performed By: #### C BC, PT, PTT, BMP #### [facility] [address] [place] [address] [phone] Tour Agent: Casey Marques MD #### ANICOT #### [facility] [address], [place] [phone] Tour Agent: Adolph Diaz MD Basophils/100 WBC (Bld) 1 % Normal 0-2 [facility] Comment on above: Performed By: #### C BC, PT, PTT, BMP #### [address] [address] Tour Agent: Casey Marques MD #### ANICOT #### [facility] [address], [place] [phone] Tour Agent: Adolph Diaz MD Eosinophils (Bld) [#/Vol] 0.35 10*3/uL Normal 0.00-0.44 [facility] Comment on above: Performed By: #### C BC, PT, PTT, BMP #### [address] [phone] Tour Agent: Casey Marques MD #### ANICOT #### [address] [phone] Tour Agent: Adolph Diaz MD Eosinophils/100 WBC (Bld) 3 % Normal 1-4 [facility] Comment on above: Performed By: #### C BC, PT, PTT, BMP #### [address] [phone] Tour Agent: Casey Marques MD #### ANICOT #### [address] [address] Tour Agent: Adolph Diaz MD Erythrocyte distribution width (RBC) [Ratio] 14.7 % High 11.8-14.4 [facility] Comment on above: Performed By: #### C BC, PT, PTT, BMP #### [address] [phone] Tour Agent: Casey Marques MD #### ANICOT #### [facility] [address] [place] [address] Tour Agent: Adolph Diaz MD Hematocrit (Bld) [Volume fraction] 38.4 % Normal 36.3-47.1 [facility] Comment on above: Performed By: #### C BC, PT, PTT, BMP #### [facility] [address] [place] [address] [phone] Tour Agent: Casey Marques MD #### ANICOT #### [facility] [address], [place] [phone] Tour Agent: Adolph Diaz MD Hemoglobin (Bld) [Mass/Vol] 12.0 g/dL Normal 11.9-15.1 [facility] Comment on above: Performed By: #### C BC, PT, PTT, BMP #### [address] [phone] Tour Agent: Casey Marques MD #### ANICOT #### [address] [address] Tour Agent: Adolph Diaz MD Immature granulocytes/100 WBC (Bld) 1 % High 0 [facility] Comment on above: Performed By: #### C BC, PT, PTT, BMP #### [address] [phone] Tour Agent: Casey Marques MD #### ANICOT #### [address] [phone] Tour Agent: Adolph Diaz MD Lymphocytes (Bld) [#/Vol] 2.21 10*3/uL Normal 1.10-3.70 [facility] Comment on above: Performed By: #### C BC, PT, PTT, BMP #### [address] [phone] Tour Agent: Casey Marques MD #### ANICOT #### [facility] [address], [place] [phone] Tour Agent: Adolph Diaz MD Lymphocytes/100 WBC (Bld) 21 % Low 24-43 [facility] Comment on above: Performed By: #### C BC, PT, PTT, BMP #### [address] [phone] Tour Agent: Casey Marques MD #### ANICOT #### [facility] [address], [place] [phone] Tour Agent: Adolph Diaz MD MCH (RBC) [Entitic mass] 26.5 pg Normal 25.2-33.5 [facility] Comment on above: Performed By: #### C BC, PT, PTT, BMP #### [address] [phone] Tour Agent: Casey Marques MD #### ANICOT #### [address] [phone] Tour Agent: Adolph Diaz MD MCHC (RBC) [Mass/Vol] 31.3 g/dL Normal 28.4-34.8 [facility] Comment on above: Performed By: #### C BC, PT, PTT, BMP #### [address] [phone] Tour Agent: Casey Marques MD #### ANICOT #### [facility] [address], [place] [phone] Tour Agent: Adolph Diaz MD MCV (RBC) [Entitic vol] 85.0 fL Normal 82.6-102.9 [facility] Comment on above: Performed By: #### C BC, PT, PTT, BMP #### [address] [phone] Tour Agent: Casey Marques MD #### ANICOT #### [facility] [address], [place] [phone] Tour Agent: Adolph Diaz MD Monocytes (Bld) [#/Vol] 0.71 10*3/uL Normal 0.10-1.20 [facility] Comment on above: Performed By: #### C BC, PT, PTT, BMP #### [address] [address] Tour Agent: Casey Marques MD #### ANICOT #### [facility] [address], [place] [phone] Tour Agent: Adolph Diaz MD Monocytes/100 WBC (Bld) 7 % Normal 3-12 [facility] Comment on above: Performed By: #### C BC, PT, PTT, BMP #### [address] [address] Tour Agent: Casey Marques MD #### ANICOT #### [facility] [address], [place] [phone] Tour Agent: Adolph Diaz MD Neutrophil (Seg) 67 % High 36-65 [place] Comment on above: Performed By: #### C BC, PT, PTT, BMP #### [address] [address] Tour Agent: Casey Marques MD #### ANICOT #### [facility] [address], [place] [phone] Tour Agent: Adolph Diaz MD NRBC Automated 0.0 per 100 WBC Normal 0.0 [facility] Comment on above: Performed By: #### C BC, PT, PTT, BMP #### [facility] [address] [place] [address] Tour Agent: Casey Marques MD #### ANICOT #### [facility] [address], [place] [phone] Tour Agent: Adolph Diaz MD Platelet mean volume (Bld) [Entitic vol] 8.6 fL Normal 8.1-13.5 [facility] Comment on above: Performed By: #### C BC, PT, PTT, BMP #### [facility] [address] [place] [address] Tour Agent: Casey Marques MD #### ANICOT #### [facility] [address] [place] [address] Tour Agent: Adolph Diaz MD Platelets (Bld) [#/Vol] 256 10*3/uL Normal 138-453 [facility] Comment on above: Performed By: #### C BC, PT, PTT, BMP #### [address] [address] Tour Agent: Casey Marques MD #### ANICOT #### [facility] [address] [place] [address] Tour Agent: Adolph Diaz MD RBC (Bld) [#/Vol] 4.52 10*6/uL Normal 3.95-5.11 [facility] Comment on above: Performed By: #### C BC, PT, PTT, BMP #### [address] [address] Tour Agent: Casey Marques MD #### ANICOT #### [facility] [address] [place] [address] Tour Agent: Adolph Diaz MD RBC morphology finding Nom (Bld) ANISOCYTOSIS PRESENT Normal [facility] Comment on above: Performed By: #### C BC, PT, PTT, BMP #### [address] [address] Tour Agent: Casey Marques MD #### ANICOT #### [facility] [address] [place] [address] Tour Agent: Adolph Diaz MD WBC (Bld) [#/Vol] 10.7 10*3/uL Normal 3.5-11.3 [facility] Comment on above: Performed By: #### C BC, PT, PTT, BMP #### [facility] [place] [address] Tour Agent: Casey Marques MD #### ANICOT #### [facility] [address] [place] [address] Tour Agent: Adolph Diaz MD Auto Diff Performed NOT REPORTED Normal [facility] Comment on above: Performed By: #### C BC, PT, PTT, BMP #### [facility] [address] [place] [address] Tour Agent: Casey Marques MD #### ANICOT #### [facility] [address] [place] [address] Tour Agent: Adolph Diaz MD Platelet Estimate NOT REPORTED Normal [facility] Comment on above: Performed By: #### C BC, PT, PTT, BMP #### [facility] [address] [place] [address] Tour Agent: Casey Marques MD #### ANICOT #### [facility] [address] [place] [address] Tour Agent: Adolph Diaz MD WBC Morphology NOT REPORTED Normal [place] Comment on above: Performed By: #### C BC, PT, PTT, BMP #### [facility] [address] [place] [address] Tour Agent: Casey Marques MD #### ANICOT #### [facility] [address] [place] [address] Tour Agent: Adolph Diaz MD Surgical Pathologyon 021 Surgical Pathology Report -- Diagnosis -- STOMACH, SLEEVE GASTRECTOMY: - MODERATE CHRONIC INACTIVE GASTRITIS. - NEGATIVE FOR ACTIVE GASTRITIS, INTESTINAL METAPLASIA OR DYSPLASIA. Aaron Suanders M.D. Electronically Signed Out 05/08/2020 Clinical Information Pre-op Diagnosis: MORBID OBESITY, HYPOTHYROID Operative Findings: GASTRIC REMNANT Operation Performed: GASTRECTOMY SLEEVE LAPAROSCOPIC ROBOTIC, EGD Source of Specimen 1: GASTRIC REMNANT Gross Description JAZ SANDERS, GASTRIC REMNANT 21.0 x 5.5 x 4.0 cm portion of stomach with a staple line that runs along its length. The serosa is pink-kahn and the mucosa is pink-red with no areas of granularity or masses. [employer] sections 1cs. tm Microscopic Description Sections of gastric mucosa show increased lymphocytes and plasma cells in the lamina propria. There is no evidence of acute inflammation, intestinal metaplasia or dysplasia. There is no evidence of organisms suspicious for Helicobacter with the routine H&E stains. SURGICAL PATHOLOGY CONSULTATION Patient Name: JAZ SANDERS [facility] Rec: [id number] Path Number: [id number] [facility] [employer] [facility] ANATOMIC PATHOLOGY [address] [place] [address]. [place], [place] [address] [place] Basic Metabolic Panelon 04-19 Anion gap [Moles/Vol] 13 mmol/L 9 - 17 mmol/L [place] Bun/Cre Ratio NOT REPORTED [place] Calcium [Mass/Vol] 9.4 mg/dL 8.6 - 10. 4 mg/dL [place] Chloride [Moles/Vol] 104 mmol/L 98 - 10 7 mmol/L [place] CO2 [Moles/Vol] 23 mmol/L 20 - 31 mmol/L [place] Creatinine [Mass/Vol] 0.73 mg/dL 0.5 - 0.9 mg/dL [place] GFR >60 >60 mL/min [place] GFR Non- >60 >60 mL/min [place] GFR/1.73 sq M predicted among non-blacks MDRD (S/P/Bld) [Vol rate/Area] NOT REPORTED [place] GFR/1.73 sq M predicted among non-blacks MDRD (S/P/Bld) [Vol rate/Area] [place] Comment on above: Average GFR for 20-2 9 years old: 116 mL/min/1.73sq m Chronic Kidney Disease: <60 mL/min/1.73sq m Kidney failure: <15 mL/min/1.73sq m eGFR calculated using average adult body mass. Additional eGFR calculator available at: http://www.[employer]/multiple_crcl_2012.htm Glucose [Mass/Vol] 98 mg/dL 70 - 99 mg/dL [place] Potassium [Moles/Vol] 4.1 mmol/L 3.7 - 5.3 mmol/L [place] Sodium [Moles/Vol] 140 mmol/L 135 - 144 mmol/L [place] Urea nitrogen [Mass/Vol] 6 mg/dL 6 - 20 mg/dL [place] Basic Metabolic Profon 05-07 (cont.) Normal [facility] Comment on above: Result Comment: Aver age GFR for 20-29 years old: 116 mL/min/1.73sq m Chronic Kidney Disease: <60 mL/min/1.73sq m Kidney failure: <15 mL/min/1.73sq m eGFR calculated using average adult body mass. Additional eGFR calculator available at: http://www.[employer]/multiple_crcl_2012.htm Performed By: #### Rudi BLANK, BMP #### [facility] [address] [place] [address] [phone] Tour Agent: Casey Marques MD Anion gap [Moles/Vol] 13 mmol/L Normal 9-17 [facility] Comment on above: Performed By: #### Rudi BLANK, BMP #### [facility] [address] [place], [place] [phone] Tour Agent: Casey Marques MD Calcium [Mass/Vol] 9.4 mg/dL Normal 8.6-10.4 [facility] Comment on above: Performed By: #### Rudi BLANK, BMP #### [facility] [place] [address] [place], [place] [phone] Tour Agent: Casey Marques MD Chloride [Moles/Vol] 104 mmol/L Normal 98-107 [facility] Comment on above: Performed By: #### C BC, BMP #### [facility] [address] [place] [address] Tour Agent: Casey Marques MD CO2 [Moles/Vol] 23 mmol/L Normal 20-31 [facility] Comment on above: Performed By: #### C BC, BMP #### [facility] [address] [place] [address] Tour Agent: Casey Marques MD Creatinine [Mass/Vol] 0.73 mg/dL Normal 0.50-0.90 [facility] Comment on above: Performed By: #### C BC, BMP #### [facility] [address] [place] [address] Tour Agent: Casey Marques MD GFR, Amer >60 Normal >60 [place] Comment on above: Performed By: #### C BC, BMP #### [facility] [address] [place] [address] Tour Agent: Casey Marques MD GFR,non Amer >60 Normal >60 [facility] Comment on above: Performed By: #### C BC, BMP #### [facility] [address] [place] [address] Tour Agent: Casey Marques MD Glucose [Mass/Vol] 98 mg/dL Normal 70-99 [facility] Comment on above: Performed By: #### C BC, BMP #### [facility] [address] [place] [address] Tour Agent: Casey Marques MD Potassium [Moles/Vol] 4.1 mmol/L Normal 3.7-5.3 [facility] Comment on above: Performed By: #### C BC, BMP #### [facility] [address] [place] [address] Tour Agent: Casey Marques MD Sodium [Moles/Vol] 140 mmol/L Normal 135-144 [facility] Comment on above: Performed By: #### C BC, BMP #### [facility] [address] [place] [address] Tour Agent: Casey Marques MD Urea nitrogen [Mass/Vol] 6 mg/dL Normal - [facility] Comment on above: Performed By: #### C BC, BMP #### [facility] [address] [place] [address] Tour Agent: Casey Marques MD BUN/CRE Ratio NOT REPORTED Normal - [facility] Comment on above: Performed By: #### C BC, BMP #### [facility] [address] [place] [address] Tour Agent: Casey Marques MD Staging: NOT REPORTED Normal [facility] Comment on above: Performed By: #### C BC, BMP #### [facility] [address] [place] [address] Tour Agent: Casey Marques MD CBCon 05-07-2020 Erythrocyte distribution width (RBC) [Ratio] 14.4 % Normal 11.8-14.4 [facility] Comment on above: Performed By: #### C BC, BMP #### [facility] [address] [place] [address] Tour Agent: Casey Marques MD Hematocrit (Bld) [Volume fraction] 40.4 % Normal 36.3-47.1 [facility] Comment on above: Performed By: #### C BC, BMP #### [facility] [address] [place] [address] Tour Agent: Casey Marques MD Hemoglobin (Bld) [Mass/Vol] 12.6 g/dL Normal 11.9-15.1 [facility] Comment on above: Performed By: #### C BC, BMP #### [address] [address] Tour Agent: Casey Marques MD MCH (RBC) [Entitic mass] 26.1 pg Normal 25.2-33.5 [facility] Comment on above: Performed By: #### C BC, BMP #### [address] [address] Tour Agent: Casey Marques MD MCHC (RBC) [Mass/Vol] 31.2 g/dL Normal 28.4-34.8 [facility] Comment on above: Performed By: #### C BC, BMP #### [address] [address] Tour Agent: Casey Marques MD MCV (RBC) [Entitic vol] 83.8 fL Normal 82.6-102.9 [facility] Comment on above: Performed By: #### C BC, BMP #### [address] [address] Tour Agent: Casey Marques MD NRBC Automated 0.0 per 100 WBC Normal 0.0 [facility] Comment on above: Performed By: #### C BC, BMP #### [address] [address] Tour Agent: Casey Marques MD Platelet mean volume (Bld) [Entitic vol] 8.7 fL Normal 8.1-13.5 [facility] Comment on above: Performed By: #### C BC, BMP #### [address] [address] Tour Agent: Casey Marques MD Platelets (Bld) [#/Vol] 289 10*3/uL Normal 138-453 [facility] Comment on above: Performed By: #### C BC, BMP #### [address] [place], [place] [phone] Tour Agent: Casey Marques MD RBC (Bld) [#/Vol] 4.82 10*6/uL Normal 3.95-5.11 [facility] Comment on above: Performed By: #### C ABHAY, BMP #### [facility] [address] [place], [place] [phone] Tour Agent: Casey Marques MD WBC (Bld) [#/Vol] 13.7 10*3/uL High 3.5-11.3 [facility] Comment on above: Performed By: #### C ABHAY, BMP #### [facility] [address] [place], [place] [phone] Tour Agent: Casey Marques MD Erythrocyte distribution width (RBC) [Ratio] 14.4 % 11.8 - 14.4 % [place] Hematocrit (Bld) [Volume fraction] 40.4 % 36.3 - 47.1 % [place] Hemoglobin (Bld) [Mass/Vol] 12.6 g/dL 11.9 - 15.1 g/dL [place] Interpretation and review of laboratory results Abnormal [place] MCH (RBC) [Entitic mass] 26.1 pg 25.2 - 33.5 pg [place] MCHC (RBC) [Mass/Vol] 31.2 g/dL 28.4 - 34.8 g/dL [place] MCV (RBC) [Entitic vol] 83.8 fL 82.6 - 102.9 fL [place] Platelet mean volume (Bld) [Entitic vol] 8.7 fL 8.1 - 13.5 fL [place] Platelets (Bld) [#/Vol] 289 10*3/uL [place] RBC (Bld) [#/Vol] 4.82 10*6/uL 3.95 - 5.1 1 m/uL [place] WBC (Bld) [#/Vol] 0.0 10*3/uL 0.0 per 10 0 WBC [place] WBC (Bld) [#/Vol] 13.7 10*3/uL [place] ESOPHAGRAMon 05-07-2020 [place] ESOPHAGRAM EXAMINATION: [...] Petr Cullen MD 05/07/20 Final result Normal [facility] EXAMINATION: SINGLE CONTRAST ESOPHAGRAM 05/07/2020 HISTORY: ORDERING [...] sleeve. No obstruction. No extravasation of contrast. [place], [facility] Incoming Radiant Results From [employer] - 05/07/2020 10:04 AM EST EXAMINATION: SINGLE [...] of contrast. IMPRESSION: No extravasation of contrast. [place] No extravasation of contrast. [place] POCT urine pregnancyon 05-07 Beta HCG ( test) Ql (U) Negative NEGATIVE [place] Comment on above: Specimens with hCG [...] [Moles/Vol] 10 mmol/L 9 - 17 mmol/L [place] Bun/Cre Ratio NOT REPORTED [place] Calcium [Mass/Vol] 9.5 mg/dL 8.6 - 10. 4 mg/dL [place] Chloride [Moles/Vol] 103 mmol/L 98 - 10 7 mmol/L [place] CO2 [Moles/Vol] 19 mmol/L Low 20 - 31 mmol/L [place] Creatinine [Mass/Vol] 0.9 mg/dL 0.5 - 0.9 mg/dL [place] GFR >60 >60 mL/min [place] GFR Non- >60 >60 mL/min [place] GFR/1.73 sq M predicted among non-blacks MDRD (S/P/Bld) [Vol rate/Area] NOT REPORTED [place] GFR/1.73 sq M predicted among non-blacks MDRD (S/P/Bld) [Vol rate/Area] [place] Comment on above: Average GFR for 20-2 9 years old: 116 mL/min/1.73sq m Chronic Kidney Disease: <60 mL/min/1.73sq m Kidney failure: <15 mL/min/1.73sq m eGFR calculated using average adult body mass. Additional eGFR calculator available at: http://www.[employer]/multiple_crcl_2012.htm Glucose [Mass/Vol] 162 mg/dL High 70 - 99 mg/dL [place] Interpretation and review of laboratory results Abnormal [place] Potassium [Moles/Vol] 3.9 mmol/L 3.7 - 5.3 mmol/L [place] Sodium [Moles/Vol] 132 mmol/L Low 135 - 144 mmol/L [place] Urea nitrogen [Mass/Vol] 10 mg/dL 6 - 20 mg/dL [place] Basic Metabolic Profon 05-06 (cont.) Normal [facility] Comment on above: Result Comment: Aver age GFR for 20-29 years old: 116 mL/min/1.73sq m Chronic Kidney Disease: <60 mL/min/1.73sq m Kidney failure: <15 mL/min/1.73sq m eGFR calculated using average adult body mass. Additional eGFR calculator available at: http://www.[employer]/multiple_crcl_2011.htm Performed By: #### C BC, BMP #### [facility] [address] [place] [address] Tour Agent: Casey Marques MD Anion gap [Moles/Vol] 10 mmol/L Normal 9-17 [facility] Comment on above: Performed By: #### C BC, BMP #### [facility] [address] [place] [address] Tour Agent: Casey Marques MD Calcium [Mass/Vol] 9.5 mg/dL Normal 8.6-10.4 [facility] Comment on above: Performed By: #### C BC, BMP #### [facility] [address] [place] [address] Tour Agent: Casey Marques MD Chloride [Moles/Vol] 103 mmol/L Normal 98-107 [facility] Comment on above: Performed By: #### C BC, BMP #### [facility] [address] [place] [address] [phone] Tour Agent: Casey Marques MD CO2 [Moles/Vol] 19 mmol/L Low 20-31 [facility] Comment on above: Performed By: #### C BC, BMP #### [facility] [address] [place] [address] Tour Agent: Casey Marques MD Creatinine [Mass/Vol] 0.90 mg/dL Normal 0.50-0.90 [facility] Comment on above: Performed By: #### C BC, BMP #### [facility] [address] [place] [address] Tour Agent: Casey Marques MD GFR, Amer >60 Normal >60 [place] Comment on above: Performed By: #### C BC, BMP #### [facility] [address] [place] [address] Tour Agent: Casey Marques MD GFR,non Amer >60 Normal >60 [facility] Comment on above: Performed By: #### C BC, BMP #### [address] [address] Tour Agent: Casey Marques MD Glucose [Mass/Vol] 162 mg/dL High 70-99 [facility] Comment on above: Performed By: #### C BC, BMP #### [facility] [address] [place] [address] Tour Agent: Casey Marques MD Potassium [Moles/Vol] 3.9 mmol/L Normal 3.7-5.3 [facility] Comment on above: Performed By: #### C BC, BMP #### [facility] [address] [place] [address] Tour Agent: Casey Marques MD Sodium [Moles/Vol] 132 mmol/L Low 135-144 [facility] Comment on above: Performed By: #### C BC, BMP #### [facility] [address] [place] [address] Tour Agent: Casey Marques MD Urea nitrogen [Mass/Vol] 10 mg/dL Normal 6-20 [facility] Comment on above: Performed By: #### C BC, BMP #### [facility] [address] [place] [address] Tour Agent: Casey Marques MD BUN/CRE Ratio NOT REPORTED Normal 9-20 [facility] Comment on above: Performed By: #### C BC, BMP #### [facility] [address] [place] [phone] Tour Agent: Casey Marques MD Staging: NOT REPORTED Normal [facility] Comment on above: Performed By: #### C BC, BMP #### [address] [address] Tour Agent: Casey Marques MD CBCon 05-06-2020 Erythrocyte distribution width (RBC) [Ratio] 14.6 % High 11.8-14.4 [facility] Comment on above: Performed By: #### C BC, BMP #### [address] [address] Tour Agent: Casey Marques MD Hematocrit (Bld) [Volume fraction] 42.5 % Normal 36.3-47.1 [facility] Comment on above: Performed By: #### C BC, BMP #### [address] [address] Tour Agent: Casey Marques MD Hemoglobin (Bld) [Mass/Vol] 12.8 g/dL Normal 11.9-15.1 [facility] Comment on above: Performed By: #### C BC, BMP #### [facility] [address] [place] [address] Tour Agent: Casey Marques MD MCH (RBC) [Entitic mass] 26.9 pg Normal 25.2-33.5 [facility] Comment on above: Performed By: #### C BC, BMP #### [facility] [address] [place] [address] Tour Agent: Casey Marques MD MCHC (RBC) [Mass/Vol] 30.1 g/dL Normal 28.4-34.8 [facility] Comment on above: Performed By: #### C BC, BMP #### [facility] [address] [place] [address] Tour Agent: Casey Marques MD MCV (RBC) [Entitic vol] 89.3 fL Normal 82.6-102.9 [facility] Comment on above: Performed By: #### C BC, BMP #### [facility] [address] [place] [address] Tour Agent: Casey Marques MD NRBC Automated 0.0 per 100 WBC Normal 0.0 [facility] Comment on above: Performed By: #### C BC, BMP #### [facility] [address] [place] [address] Tour Agent: Casey Marques MD Platelet mean volume (Bld) [Entitic vol] 8.4 fL Normal 8.1-13.5 [facility] Comment on above: Performed By: #### C BC, BMP #### [address] [address] Tour Agent: Casey Marques MD Platelets (Bld) [#/Vol] 300 10*3/uL Normal 138-453 [facility] Comment on above: Performed By: #### C BC, BMP #### [facility] [address] [place] [address] Tour Agent: Casey Marques MD RBC (Bld) [#/Vol] 4.76 10*6/uL Normal 3.95-5.11 [facility] Comment on above: Performed By: #### C BC, BMP #### [facility] [address] [place] [address] Tour Agent: Casey Marques MD WBC (Bld) [#/Vol] 14.3 10*3/uL High 3.5-11.3 [facility] Comment on above: Performed By: #### C BC, BMP #### [facility] [address] [place] [address] Tour Agent: Casey Marques MD CBC without Diffon Erythrocyte distribution width (RBC) [Ratio] 14.6 % High 11.8 - 14.4 % [place] Hematocrit (Bld) [Volume fraction] 42.5 % 36.3 - 47.1 % [place] Hemoglobin (Bld) [Mass/Vol] 12.8 g/dL 11.9 - 15.1 g/dL [place] Interpretation and review of laboratory results Abnormal [place] MCH (RBC) [Entitic mass] 26.9 pg 25.2 - 33.5 pg [place] MCHC (RBC) [Mass/Vol] 30.1 g/dL 28.4 - 34.8 g/dL [place] MCV (RBC) [Entitic vol] 89.3 fL 82.6 - 102.9 fL [place] Platelet mean volume (Bld) [Entitic vol] 8.4 fL 8.1 - 13.5 fL [place] Platelets (Bld) [#/Vol] 300 10*3/uL [place] RBC (Bld) [#/Vol] 4.76 10*6/uL 3.95 - 5.1 1 m/uL [place] WBC (Bld) [#/Vol] 14.3 10*3/uL [place] WBC (Bld) [#/Vol] 0.0 10*3/uL 0.0 per 10 0 WBC [place] Surgical Pathologyon 021 Surgical Pathology (NOTE) [...] runs along its length. The serosa is pink-kahn and the mucosa is pink-red with no areas of granularity or masses. Automatic Quilling Machine Operator sections 1cs. tm Microscopic Description Sections of gastric mucosa show increased lymphocytes and plasma cells in the lamina propria. There is no evidence of acute inflammation, intestinal metaplasia or dysplasia. There is no evidence of organisms suspicious for Helicobacter with the routine BRI stains. SURGICAL PATHOLOGY CONSULTATION Patient Name: JAZ S[facility]ERS [facility] Rec: [id number] Path Number: [id number] [facility] ANATOMIC PATHOLOGY [address] [place] [phone] [facility] Comment on above: Performed By: #### C BC, PT, PTT, BMP #### [facility] [address] [place] [address] Tour Agent: Casey Marques MD #### ANICOT #### [facility] [address] [place] [address] Tour Agent: Adolph Diaz MD [id number] 05-04-2020 SARS-CoV-2 Normal [facility] Comment on above: Performed By: #### C OVID #### [employer] [facility] [address] [place] [address] Tour Agent: Casey Marques MD SARS-CoV-2 Not Detected [facility] Comment on above: Result Comment: The specimen is NEGATIVE for SARS-CoV-2, the novel coronavirus associated with COVID-19. A negative result does not rule out COVID-19. Bernard SARS-CoV-2 for use on the Bernard Reveal0/8800 [employer] is a real-time RT-PCR test intended [...] this assay. Fact sheet for Healthcare Providers: https://www.fda.gov/media/680068/download Fact sheet for Patients: https://www.fda.gov/media/610106/download METHODOLOGY: RT-PCR Performed By: #### C OVID #### [facility] [address] [place] [address] Tour Agent: Casey Marques MD SARS-CoV-2,Rapid [facility] Comment on above: Performed By: #### C OVID #### [facility] [address] [place] [address] Tour Agent: Casey Marques MD [id number] 05-03-2020 SARS-CoV-2 Source .NASOPHARYNGEAL SWAB [facility] Comment on above: Performed By: #### C OVID #### [facility] [address] [place] [address] Tour Agent: Casey Marques MD Nicotineon 04-26-2020 [id number] <2 [facility] Comment on above: Performed By: #### C BC, PT, PTT, BMP #### [facility] [address] [place] [address] Tour Agent: Casey Marques MD #### ANICOT #### [address] [address] Tour Agent: Adolph Diaz MD Cotinine <2 Normal [facility] Comment on above: Performed By: #### C BC, PT, PTT, BMP #### [facility] [place] [address] [place] [address] Tour Agent: Casey Marques MD #### ANICOT #### [facility] [address] [place] [phone] Tour Agent: Adolph Diaz MD Nicotine <2 Normal [facility] Comment on above: Result Comment: (NOT E) [...] positive. Test developed and characteristics determined by [facility] See Compliance Statement B: [employer]raCell/CS Performed By: [facility] [address] [place] [address] Website Optimization Strategist: Lynn Layne MD Performed By: #### C BC, PT, PTT, BMP #### [facility] [address] [place] [address] Tour Agent: Casey Marques MD #### ANICOT #### [facility] [address] [place], [place] [phone] Tour Agent: Adolph Diaz MD Nicotine, Bloodon 04-26-2020 [id number] <2 ng/mL [facility] [place], [place] Cotinine <2 ng/mL [place] Nicotine <2 ng/mL [place] Comment on above: (NOTE) Consistent with [...] positive. Test developed and characteristics determined by [employer] See Compliance Statement B: [employer]/CS Performed By: [facility] [address] [place] [address] Website Optimization Strategist: Lynn Layne MD EKG 12 Leadon 04-23-2020 Atrial Rate 95 BPM [place] P [place] 14 degrees [place] P-R Interval 134 ms [place] Q-T Interval 398 ms [place] QRS Duration 94 ms [place] QTc Calculation (Bazett) 500 ms [place] R [place] 15 degrees [place] T [place] 32 degrees [place] Ventricular Rate 95 BPM [place], [place] Normal sinus rhythm with sinus arrhythmia Prolonged QT Abnormal ECG No previous ECGs available [place] Julius, Mh[facility] Incoming E kg Results From [facility] [place] - 04/23/2020 12:32 PM EST Normal sinus rhythm with sinus arrhythmia Prolonged QT Abnormal ECG No previous ECGs available [place] APTTon 04-22-2020 aPTT Coag (Bld) [Time] 22.2 s Normal 20.5-30.5 [facility] Comment on above: Result Comment: IV Heparin Therapy Range: 48.6-77.8 Performed By: #### C BC, PT, PTT, BMP #### [facility] [address] [place] [address] Tour Agent: Casey Marques MD #### ANALI #### [facility] [address] [place] [address] Tour Agent: Adolph Diaz MD aPTT Coag (Bld) [Time] 22.2 s [place], [place] Comment on above: IV Heparin Therapy Range: 48.6-77.8 Basic Metabolic Panelon Anion gap [Moles/Vol] 12 mmol/L 9 - 17 mmol/L [place] Bun/Cre Ratio NOT REPORTED [place], [place] Calcium [Mass/Vol] 9.2 mg/dL 8.6 - 10. 4 mg/dL [place] Chloride [Moles/Vol] 104 mmol/L 98 - 10 7 mmol/L [place] CO2 [Moles/Vol] 23 mmol/L 20 - 31 mmol/L [place] Creatinine [Mass/Vol] 0.69 mg/dL 0.5 - 0.9 mg/dL [place] GFR >60 >60 mL/min [place] GFR Non- >60 >60 mL/min [place] GFR/1.73 sq M predicted among non-blacks MDRD (S/P/Bld) [Vol rate/Area] NOT REPORTED [place] GFR/1.73 sq M predicted among non-blacks MDRD (S/P/Bld) [Vol rate/Area] [place] Comment on above: Average GFR for 20-2 9 years old: 116 mL/min/1.73sq m Chronic Kidney Disease: <60 mL/min/1.73sq m Kidney failure: <15 mL/min/1.73sq m eGFR calculated using average adult body mass. Additional eGFR calculator available at: http://www.[employer].TheraCell/multiple_crcl_2012.htm Glucose [Mass/Vol] 123 mg/dL High 70 - 99 mg/dL [place] Interpretation and review of laboratory results Abnormal [place] Potassium [Moles/Vol] 4.1 mmol/L 3.7 - 5.3 mmol/L [place] Sodium [Moles/Vol] 139 mmol/L 135 - 144 mmol/L [place] Urea nitrogen [Mass/Vol] 7 mg/dL 6 - 20 mg/dL [place] Basic Metabolic Profon 04-22 (cont.) Normal [facility] Comment on above: Result Comment: Aver age GFR for 20-29 years old: 116 mL/min/1.73sq m Chronic Kidney Disease: <60 mL/min/1.73sq m Kidney failure: <15 mL/min/1.73sq m eGFR calculated using average adult body mass. Additional eGFR calculator available at: http://www.[employer]/multiple_crcl_2012.htm Performed By: #### C BC, PT, PTT, BMP #### [facility] [address] [place] [phone] Tour Agent: Casey Marques MD #### ANICOT #### [facility] [address] [place] [address] Tour Agent: Adolph Diaz MD Anion gap [Moles/Vol] 12 mmol/L Normal 9-17 [facility] Comment on above: Performed By: #### C BC, PT, PTT, BMP #### [facility] [address] [place] [address] Tour Agent: Casey Marques MD #### ANICOT #### [facility] [address] [place] [address] Tour Agent: Adolph Diaz MD Calcium [Mass/Vol] 9.2 mg/dL Normal 8.6-10.4 [facility] Comment on above: Performed By: #### C BC, PT, PTT, BMP #### [facility] [address] [place] [address] Tour Agent: Casey Marques MD #### ANICOT #### [facility] [address] [place] [address] Tour Agent: Adolph Diaz MD Chloride [Moles/Vol] 104 mmol/L Normal 98-107 [facility] Comment on above: Performed By: #### C BC, PT, PTT, BMP #### [address] [address] Tour Agent: Casey Marques MD #### ANICOT #### [facility] [address] [place] [address] Tour Agent: Adolph Diaz MD CO2 [Moles/Vol] 23 mmol/L Normal 20-31 [facility] Comment on above: Performed By: #### C BC, PT, PTT, BMP #### [address] [address] Tour Agent: Casey Marques MD #### ANICOT #### [facility] [address] [place] [address] Tour Agent: Adolph Diaz MD Creatinine [Mass/Vol] 0.69 mg/dL Normal 0.50-0.90 [facility] Comment on above: Performed By: #### C BC, PT, PTT, BMP #### [facility] [address] [place] [address] Tour Agent: Casey Marques MD #### ANICOT #### [facility] [address] [place] [address] Tour Agent: Adolph Diaz MD GFR, Amer >60 Normal >60 [place] Comment on above: Performed By: #### C BC, PT, PTT, BMP #### [facility] [address] [place] [address] Tour Agent: Casey Marques MD #### ANICOT #### [facility] [address] [place], [place] [phone] Tour Agent: Adolph Diaz MD GFR,non Amer >60 Normal >60 [facility] Comment on above: Performed By: #### C BC, PT, PTT, BMP #### [address] [address] Tour Agent: Casey Marques MD #### ANICOT #### [facility] [address] [place] [address] Tour Agent: Adolph Diaz MD Glucose [Mass/Vol] 123 mg/dL High 70-99 [facility] Comment on above: Performed By: #### C BC, PT, PTT, BMP #### [address] [address] Tour Agent: Casey Marques MD #### ANICOT #### [facility] [address] [place] [address] Tour Agent: Adolph Diaz MD Potassium [Moles/Vol] 4.1 mmol/L Normal 3.7-5.3 [facility] Comment on above: Performed By: #### C BC, PT, PTT, BMP #### [address] [address] Tour Agent: Casey Marques MD #### ANICOT #### [facility] [address] [place] [address] Tour Agent: Adolph Diaz MD Sodium [Moles/Vol] 139 mmol/L Normal 135-144 [facility] Comment on above: Performed By: #### C BC, PT, PTT, BMP #### [address] [address] Tour Agent: Casey Marques MD #### ANICOT #### [facility] [address] [place] [address] Tour Agent: Adolph Diaz MD Urea nitrogen [Mass/Vol] 7 mg/dL Normal - [facility] Comment on above: Performed By: #### C BC, PT, PTT, BMP #### [address] [address] Tour Agent: Casey Marques MD #### ANICOT #### [facility] [address] [place] [address] Tour Agent: Adolph Diaz MD BUN/CRE Ratio NOT REPORTED Normal - [facility] Comment on above: Performed By: #### C BC, PT, PTT, BMP #### [address] [address] Tour Agent: Casey Marques MD #### ANICOT #### [facility] [address] [place], [place] [phone] Tour Agent: Adolph Diaz MD Staging: NOT REPORTED Normal [facility] Comment on above: Performed By: #### C BC, PT, PTT, BMP #### [address] [address] Tour Agent: Casey Marques MD #### ANICOT #### [facility] [address] [place] [address] Tour Agent: Adolph Diaz MD CBCon 04-22-2020 Erythrocyte distribution width (RBC) [Ratio] 14.6 % High 11.8-14.4 [facility] Comment on above: Performed By: #### C BC, PT, PTT, BMP #### [facility] [address] [place] [address] Tour Agent: Casey Marques MD #### ANICOT #### [facility] [address] [place] [address] Tour Agent: Adolph Diaz MD Hematocrit (Bld) [Volume fraction] 40.8 % Normal 36.3-47.1 [facility] Comment on above: Performed By: #### C BC, PT, PTT, BMP #### [address] [phone] Tour Agent: Casey Marques MD #### ANICOT #### [address] [phone] Tour Agent: Adolph Diaz MD Hemoglobin (Bld) [Mass/Vol] 12.8 g/dL Normal 11.9-15.1 [facility] Comment on above: Performed By: #### C BC, PT, PTT, BMP #### [address] [address] Tour Agent: Casey Marques MD #### ANICOT #### [address] [phone] Tour Agent: Adolph Diaz MD MCH (RBC) [Entitic mass] 26.5 pg Normal 25.2-33.5 [facility] Comment on above: Performed By: #### C BC, PT, PTT, BMP #### [address] [phone] Tour Agent: Casey Marques MD #### ANICOT #### [facility] [address] [place] [address] [phone] Tour Agent: Adolph Diaz MD MCHC (RBC) [Mass/Vol] 31.4 g/dL Normal 28.4-34.8 [facility] Comment on above: Performed By: #### C BC, PT, PTT, BMP #### [address] [phone] Tour Agent: Casey Marques MD #### ANICOT #### [address] [place] [address] Tour Agent: Adolph Diaz MD MCV (RBC) [Entitic vol] 84.5 fL Normal 82.6-102.9 [facility] Comment on above: Performed By: #### C BC, PT, PTT, BMP #### [address] [address] Tour Agent: Casey Marques MD #### ANICOT #### [facility] [address] [place] [address] Tour Agent: Adolph Diaz MD NRBC Automated 0.0 per 100 WBC Normal 0.0 [facility] Comment on above: Performed By: #### C BC, PT, PTT, BMP #### [address] [address] Tour Agent: Casey Marques MD #### ANICOT #### [address] [address] Tour Agent: Adolph Diaz MD Platelet mean volume (Bld) [Entitic vol] 8.7 fL Normal 8.1-13.5 [facility] Comment on above: Performed By: #### C BC, PT, PTT, BMP #### [address] [address] Tour Agent: Casey Marques MD #### ANICOT #### [address] [address] Tour Agent: Adolph Diaz MD Platelets (Bld) [#/Vol] 298 10*3/uL Normal 138-453 [facility] Comment on above: Performed By: #### C BC, PT, PTT, BMP #### [address] [address] Tour Agent: Casey Marques MD #### ANICOT #### [address] [place] [address] Tour Agent: Adolph Diaz MD RBC (Bld) [#/Vol] 4.83 10*6/uL Normal 3.95-5.11 [facility] Comment on above: Performed By: #### C BC, PT, PTT, BMP #### [address] [phone] Tour Agent: Casey Marques MD #### ANICOT #### [facility] [address] [place], [place] [phone] Tour Agent: Adolph Diaz MD WBC (Bld) [#/Vol] 10.8 10*3/uL Normal 3.5-11.3 [facility] Comment on above: Performed By: #### C BC, PT, PTT, BMP #### [address] [phone] Tour Agent: Casey Marques MD #### ANICOT #### [facility] [address] [place], [place] [phone] Tour Agent: Adolph Diaz MD Erythrocyte distribution width (RBC) [Ratio] 14.6 % High 11.8 - 14.4 % [place] Hematocrit (Bld) [Volume fraction] 40.8 % 36.3 - 47.1 % [place] Hemoglobin (Bld) [Mass/Vol] 12.8 g/dL 11.9 - 15.1 g/dL [place] Interpretation and review of laboratory results Abnormal [place] MCH (RBC) [Entitic mass] 26.5 pg 25.2 - 33.5 pg [place] MCHC (RBC) [Mass/Vol] 31.4 g/dL 28.4 - 34.8 g/dL [place] MCV (RBC) [Entitic vol] 84.5 fL 82.6 - 102.9 fL [place] Platelet mean volume (Bld) [Entitic vol] 8.7 fL 8.1 - 13.5 fL [place] Platelets (Bld) [#/Vol] 298 10*3/uL [place] RBC (Bld) [#/Vol] 4.83 10*6/uL 3.95 - 5.1 1 m/uL [place] WBC (Bld) [#/Vol] 10.8 10*3/uL [place] WBC (Bld) [#/Vol] 0.0 10*3/uL 0.0 per 10 0 WBC [place] Otheron 04-22-2020 No acute cardiopulmonary findings [place] EXAMINATION: TWO XRA Y VIEWS OF THE CHEST 04/22/2020 2:46 pm COMPARISON: Baseline examination HISTORY: ORDERING SYSTEM PROVIDED HISTORY: preop gastric bypass [employer] TECHNOLOGIST PROVIDED HISTORY: preop gastric bypass [employer] Reason for Exam: preop gastric bypass FINDINGS: Normal cardiopericardial silhouette There are no significant pleural, parenchymal, mediastinal or osseous findings [place] Julius, Mh[facility] Incoming Radiant Results From [employer] - 04/22/2020 3:28 PM EST EXAMINATION: TWO XRAY VIEWS OF THE CHEST 04/22/2020 2:46 pm COMPARISON: Baseline examination HISTORY: ORDERING SYSTEM PROVIDED HISTORY: preop gastric bypass [employer] TECHNOLOGIST PROVIDED HISTORY: preop gastric bypass [employer] Reason for Exam: preop gastric bypass FINDINGS: Normal cardiopericardial silhouette There are no significant pleural, parenchymal, mediastinal or osseous findings IMPRESSION: No acute cardiopulmonary findings [place] PTon 04-22-2020 INR Coag (PPP) [Relative time] 0.9 {INR} Normal [facility] Comment on above: Result Comment: Therapeutic Range: Moderate Anticoagulant Intensity: INR = 2.0-3.0 High Anticoagulant Intensity: INR = 2.5-3.5 Performed By: #### C BC, PT, PTT, BMP #### [facility] [address] [place] [address] Tour Agent: Casey Marques MD #### ANALI #### [facility] [address] [place] [address] Tour Agent: Adolph Diaz MD PT Coag (PPP) [Time] 9.3 s Normal 9.0-12.0 [facility] Comment on above: Performed By: #### C BC, PT, PTT, BMP #### [facility] [address] [place], [place] [phone] Tour Agent: Casey Marques MD #### ANICOT #### [facility] [address] [place] [address] Tour Agent: Adolph Diaz MD [employer]-INRon 04-22-2020 INR Coag (PPP) [Relative time] 0.9 {INR} [place] Comment on above: Therapeutic Range: Moderate Anticoagulant Intensity: INR = 2.0-3.0 High Anticoagulant Intensity: INR = 2.5-3.5 PT Coag (PPP) [Time] 9.3 s [place] XR CHEST (2 VW)on 04-22-2020 XR [...] Roxanne Avitia MD 04/22/20 Final result Normal [facility] Vital Signs Date Time Vital Sign Value Performing Clinician Sonal keith 11-20-2024 09:10-0400 Body mass index (BMI) [Ratio] 35.7 kg/m2 [employer] Work Phone: [facility] 11-20-2024 09:10-0400 Body weight 116.12 kg Les Juan S[employer] Work Phone: [facility] 11-20-2024 09:10-0400 Diastolic blood pressure 64 mm[Hg] [facility] DO Work Phone: [facility] 11-20-2024 09:10-0400 Systolic blood pressure 114 mm[Hg] Les Juan DO Work Phone: [facility] 10-22-2024 11:28-0400 Body mass index (BMI) [Ratio] 31.24 kg/m2 Les Juan DO Work Phone: [facility] 10-22-2024 11:28-0400 Body weight 101.61 kg Les Juan DO Work Phone: [facility] 10-22-2024 11:28-0400 Diastolic blood pressure 62 mm[Hg] Les Juan DO Work Phone: [facility] 10-22-2024 11:28-0400 Systolic blood pressure 110 mm[Hg] Les Juan DO Work Phone: [facility] 10-18-2024 13:34-0400 Diastolic blood pressure 71 mm[Hg] Amanda Ford SOURCING SPECIALIST Work Phone: [facility] 10-18-2024 13:34-0400 Heart rate 60 /min Amanda Ford SOURCING SPECIALIST Work Phone: [facility] 10-18-2024 13:34-0400 Respiratory rate 18 /min Amanda Ford SOURCING SPECIALIST Work Phone: [facility] 10-18-2024 13:34-0400 SaO2% (BldA) [Mass fraction] 99 % Amanda Ford SOURCING SPECIALIST Work Phone: [facility] 10-18-2024 13:34-0400 Systolic blood pressure 112 mm[Hg] Amanda Ford SOURCING SPECIALIST Work Phone: [facility] 10-18-2024 10:38-0400 Body height 180.34 cm Amanda Ford SOURCING SPECIALIST Work Phone: [facility] 10-18-2024 10:38-0400 Body temperature 98.1 [degF] Amanda Ford SOURCING SPECIALIST Work Phone: [facility] 10-18-2024 10:38-0400 Body weight 106.85 kg Amanda Ford SOURCING SPECIALIST Work Phone: [facility] 09-20-2024 15:06-0400 Body mass index (BMI) [Ratio] 31.24 kg/m2 [facility] 09-20-2024 15:06-0400 [facility] 09-20-2024 15:06-0400 Diastolic blood pressure 74 mm[Hg] [facility] 09-20-2024 15:06-0400 Systolic blood pressure 122 mm[Hg] [facility] 08-22-2024 10:04-0400 Body height 180.3 cm Darleen Sinclair MD Work Phone: [facility] 08-22-2024 10:04-0400 Body mass index (BMI) [Ratio] 29.99 kg/m2 Darleen Sinclair MD Work Phone: [facility] 08-22-2024 10:04-0400 Body weight 97.52 kg Darleen Sinclair MD Work Phone: [facility] 08-22-2024 10:04-0400 Diastolic blood pressure 56 mm[Hg] Darleen Sinclair MD Work Phone: [facility] 08-22-2024 10:04-0400 Heart rate 67 /min Darleen Sinclair MD Work Phone: [facility] 08-22-2024 10:04-0400 Respiratory rate 16 /min Darleen Sinclair MD Work Phone: [facility] 08-22-2024 10:04-0400 SaO2% (BldA) [Mass fraction] 99 % Darleen Sinclair MD Work Phone: [facility] 08-22-2024 10:04-0400 Systolic blood pressure 124 mm[Hg] Darleen Sinclair MD Work Phone: [facility] 04-26-2024 08:32-0500 Body height 180.34 cm [facility] 04-26-2024 08:32-0500 Body mass index (BMI) [Ratio] 30.4 kg/m2 [facility] 04-26-2024 08:32-0500 Body temperature 97.3 [degF] [facility] 04-26-2024 08:32-0500 Body weight 98.99 kg [facility] 04-26-2024 08:32-0500 Diastolic blood pressure 60 mm[Hg] [facility] 04-26-2024 08:32-0500 Heart rate 73 /min [facility] 04-26-2024 08:32-0500 SaO2% (BldA) [Mass fraction] 98 % [facility] 04-26-2024 08:32-0500 Systolic blood pressure 112 mm[Hg] [facility] 02-28-2024 14:03-0500 Body height 180.3 cm Ignacio Guy MD Work Phone: [facility] 02-28-2024 14:03-0500 Body mass index (BMI) [Ratio] 30.23 kg/m2 Ignacio Guy MD Work Phone: [facility] 02-28-2024 14:03-0500 Body weight 98.3 kg Ignacio Guy MD Work Phone: [facility] 02-20-2024 15:12-0500 Body mass index (BMI) [Ratio] 31.71 kg/m2 Les Juan DO Work Phone: [facility] 02-20-2024 15:12-0500 Body weight 100.25 kg Les Juan DO Work Phone: [facility] 02-20-2024 15:12-0500 Diastolic blood pressure 68 mm[Hg] Les Juan DO Work Phone: [facility] 02-20-2024 15:12-0500 Systolic blood pressure 118 mm[Hg] Les Juan DO Work Phone: [facility] 12-07-2023 11:46-0400 Diastolic blood pressure 67 mm[Hg] SOURCING SPECIALISTTanja Ford Work Phone: [facility] 12-07-2023 11:46-0400 Heart rate 76 /min SOURCING SPECIALISTTanja BecerraAmanda Rosarioacher Work Phone: [facility] 12-07-2023 11:46-0400 Respiratory rate 16 /min SOURCING SPECIALISTTanja Ponceacher Work Phone: [facility] 12-07-2023 11:46-0400 SaO2% (BldA) [Mass fraction] 99 % SOURCING SPECIALISTTanja Ford Work Phone: [facility] 12-07-2023 11:46-0400 Systolic blood pressure 149 mm[Hg] SOURCING SPECIALISTTanja Ford Work Phone: [facility] 12-07-2023 10:20-0400 Body temperature 98 [degF] SOURCING SPECIALISTTanja Ford Work Phone: [facility] 12-07-2023 09:55-0400 Inhaled oxygen flow rate 3 L/min SOURCING SPECIALISTTanja Ford Work Phone: [facility] 12-07-2023 06:29-0400 Body height 180.34 cm SOURCING SPECIALISTTanja Ford Work Phone: [facility] 12-07-2023 06:29-0400 Body weight 95.25 kg SOURCING SPECIALISTTanja Ford Work Phone: [facility] 11-01-2023 11:56-0400 Body height 180.34 cm SOURCING SPECIALISTTanja Hahnr Work Phone: [facility] 11-01-2023 11:56-0400 Body mass index (BMI) [Ratio] 28.8 kg/m2 SOURCING SPECIALISTTanja Ford Work Phone: [facility] 11-01-2023 11:56-0400 Body weight 93.89 kg MELY Ford Work Phone: [facility] 06-08-2023 14:56-0500 Body height 180.34 cm [facility] 06-08-2023 14:56-0500 Body mass index (BMI) [Ratio] 29.4 kg/m2 [facility] 06-08-2023 14:56-0500 Body weight 95.7 kg [facility] 06-08-2023 14:56-0500 Diastolic blood pressure 68 mm[Hg] [facility] 06-08-2023 14:56-0500 Heart rate 51 /min [facility] 06-08-2023 14:56-0500 SaO2% (BldA) [Mass fraction] 98 % [facility] 06-08-2023 14:56-0500 Systolic blood pressure 122 mm[Hg] [facility] 05-17-2023 14:30-0500 Body height 180.34 cm Romeo Santana Other [facility] 05-17-2023 14:30-0500 Body mass index (BMI) [Ratio] 27.47 kg/m2 Romeo Santana Other [email or web address] [facility] [employer] Other 05-17-2023 14:30-0500 Body weight 89.36 kg Romeo Santana Other [employer] Other 05-17-2023 14:30-0500 Body weight 89.35 kg [facility] 02-07-2023 14:30-0400 Body height 180.34 cm Petr Lay Other [employer] Other 02-07-2023 14:30-0400 Body mass index (BMI) [Ratio] 27.61 kg/m2 Petr Lay Other [employer] Other 02-07-2023 14:30-0400 Body temperature 98.1 [degF] Petr Lay Other [employer] Other 02-07-2023 14:30-0400 Body weight 89.81 kg Petr Lay Other [employer] Other 02-07-2023 14:30-0400 Diastolic blood pressure 76 mm[Hg] Petr Lay Other [employer] Other 02-07-2023 14:30-0400 SaO2% (BldA) [Mass fraction] 99 % Petr Lay Other [employer] Other 02-07-2023 14:30-0400 Systolic blood pressure 128 mm[Hg] Petr Lay Other [employer] Other 12-27-2022 11:30-0400 Body height 180.34 cm Petr Lay Other [employer] Other 12-27-2022 11:30-0400 Body mass index (BMI) [Ratio] 28.03 kg/m2 Petr Lay Other [employer] Other 12-27-2022 11:30-0400 Body weight 91.17 kg Petr Lay Other [employer] Other 12-27-2022 11:30-0400 Diastolic blood pressure 64 mm[Hg] Petr Lay Other [employer] Other 12-27-2022 11:30-0400 Respiratory rate 18 /min Petr Lay Other [employer] Other 12-27-2022 11:30-0400 SaO2% (BldA) [Mass fraction] 99 % Petr Lay Other [employer] Other 12-27-2022 11:30-0400 Systolic blood pressure 128 mm[Hg] Petr Lay Other [employer] Other 10-11-2022 13:30-0400 Body height 180.34 cm Petr Lay Other [employer] Other 10-11-2022 13:30-0400 Body mass index (BMI) [Ratio] 28.78 kg/m2 Petr Lay Other [employer] Other 10-11-2022 13:30-0400 Body weight 93.62 kg Petr Lay Other [employer] Other 10-11-2022 13:30-0400 Diastolic blood pressure 78 mm[Hg] Petr Lay Other [employer] Other 10-11-2022 13:30-0400 Respiratory rate 18 /min Petr Lay Other [employer] Other 10-11-2022 13:30-0400 SaO2% (BldA) [Mass fraction] 98 % Petr Lay Other [employer] Other 10-11-2022 13:30-0400 Systolic blood pressure 122 mm[Hg] Petr Lay Other [employer] Other 09-30-2022 08:00-0400 Body height 180.34 cm Amanda Ford Other [employer] Other 09-30-2022 08:00-0400 Body mass index (BMI) [Ratio] 28.03 kg/m2 Amanda Shethbilly Other [employer] Other 09-30-2022 08:00-0400 Body weight 91.17 kg Amanda Rosarioacher Other [employer] Other 09-30-2022 08:00-0400 Diastolic blood pressure 84 mm[Hg] Amanda Rosarioacher Other [employer] Other 09-30-2022 08:00-0400 SaO2% (BldA) [Mass fraction] 95 % Amanda Logan Other [employer] Other 09-30-2022 08:00-0400 Systolic blood pressure 126 mm[Hg] Amanda Rosarioacher Other [employer] Other 08-25-2022 15:30-0400 Body height 180.34 cm Amanda Jovanir Other [employer] Other 08-25-2022 15:30-0400 Body mass index (BMI) [Ratio] 29.15 kg/m2 Amanda Rosarioacher Other [employer] Other 08-25-2022 15:30-0400 Body weight 94.8 kg Amanda Rosarioacher Other [employer] Other 08-25-2022 15:30-0400 Diastolic blood pressure 77 mm[Hg] Amanda Rosarioacher Other [employer] Other 08-25-2022 15:30-0400 Systolic blood pressure 126 mm[Hg] Amanda Poncesudhakar Other [employer] Other 08-20-2022 11:00-0400 Body height 180.34 cm Amanda Ford Other [employer] Other 08-20-2022 11:00-0400 Body mass index (BMI) [Ratio] 28.73 kg/m2 Amanda Ford Other [employer] Other 08-20-2022 11:00-0400 Body weight 93.44 kg Amanda Ford Other [employer] Other 08-20-2022 11:00-0400 Diastolic blood pressure 72 mm[Hg] Amanda Poncesudhakar Other [employer] Other 08-20-2022 11:00-0400 SaO2% (BldA) [Mass fraction] 100 % Amanda Poncesudhakar Other [employer] Other 08-20-2022 11:00-0400 Systolic blood pressure 118 mm[Hg] Amanda Logan Other [employer] Other 06-11-2022 16:43-0500 Body temperature 98.1 [degF] MD Robin Appiah Work Phone: [facility] 06-11-2022 16:43-0500 Diastolic blood pressure 56 mm[Hg] MD Robin Appiah Work Phone: [facility] 06-11-2022 16:43-0500 Heart rate 60 /min MD Robin Appiah Work Phone: [facility] 06-11-2022 16:43-0500 Respiratory rate 16 /min MD Robin Appiah Work Phone: [facility] 06-11-2022 16:43-0500 SaO2% (BldA) [Mass fraction] 100 % MD Robin Appiah Work Phone: [facility] 06-11-2022 16:43-0500 Systolic blood pressure 102 mm[Hg] MD Robin Appiah Work Phone: [facility] 06-11-2022 09:40-0500 Body height 180.34 cm MD Robin Appiah Work Phone: [facility] 06-11-2022 05:42-0500 Body weight 93 kg MD Robin Appiah Work Phone: [facility] 06-10-2022 17:55-0500 Body temperature 98.1 [degF] MD Robin Appiah Work Phone: [facility] 06-10-2022 17:55-0500 Diastolic blood pressure 56 mm[Hg] MD Robin Appiah Work Phone: [facility] 06-10-2022 17:55-0500 Heart rate 62 /min MD Robin Appiah Work Phone: [facility] 06-10-2022 17:55-0500 Respiratory rate 18 /min MD Robin Appiah Work Phone: [facility] 06-10-2022 17:55-0500 SaO2% (BldA) [Mass fraction] 100 % MD Robin Appiah Work Phone: [facility] 06-10-2022 17:55-0500 Systolic blood pressure 122 mm[Hg] MD Robin Appiah Work Phone: [facility] 06-10-2022 14:22-0500 Body height 180.34 cm MD Robin Appiah Work Phone: [facility] 06-10-2022 14:22-0500 Body weight 92.7 kg MD Robin Appiah Work Phone: [facility] 04-21-2022 15:00-0500 Body height 180.34 cm Amanda Ford Other [employer] Other 04-21-2022 15:00-0500 Body mass index (BMI) [Ratio] 27.81 kg/m2 Amanda Ford Other [employer] Other 04-21-2022 15:00-0500 Body temperature 98.2 [degF] Amanda Ford Other [employer] Other 04-21-2022 15:00-0500 Body weight 90.45 kg Amanda Ford Other [employer] Other 04-21-2022 15:00-0500 Diastolic blood pressure 68 mm[Hg] Amanda Ford Other [employer] Other 04-21-2022 15:00-0500 Respiratory rate 18 /min Amanda Ford Other [employer] Other 04-21-2022 15:00-0500 SaO2% (BldA) [Mass fraction] 99 % Amanda Ford Other [employer] Other 04-21-2022 15:00-0500 Systolic blood pressure 111 mm[Hg] Amanda Ford Other [employer] Other 04-10-2022 21:41-0500 Diastolic blood pressure 56 mm[Hg] MD Robin Appiah Work Phone: [facility] 04-10-2022 21:41-0500 Systolic blood pressure 112 mm[Hg] MD Robin Appiah Work Phone: [facility] 04-10-2022 18:14-0500 Body height 180.34 cm MD Robin Appiah Work Phone: [facility] 04-10-2022 18:14-0500 Body temperature 98.1 [degF] MD Robin Appiah Work Phone: [facility] 04-10-2022 18:14-0500 Body weight 88 kg MD Robin Appiah Work Phone: [facility] 04-10-2022 18:14-0500 Heart rate 119 /min MD Robin Appiah Work Phone: [facility] 04-10-2022 18:14-0500 Respiratory rate 18 /min MD Robin Appiah Work Phone: [facility] 04-10-2022 18:14-0500 SaO2% (BldA) [Mass fraction] 100 % MD Robin Appiah Work Phone: [facility] 04-08-2022 17:15-0500 Body temperature 97.5 [degF] MD Robin Appiah Work Phone: [facility] 04-08-2022 17:15-0500 Diastolic blood pressure 59 mm[Hg] MD Robin Appiah Work Phone: [facility] 04-08-2022 17:15-0500 Heart rate 59 /min MD Robin Appiah Work Phone: [facility] 04-08-2022 17:15-0500 Respiratory rate 18 /min MD Robin Appiah Work Phone: [facility] 04-08-2022 17:15-0500 SaO2% (BldA) [Mass fraction] 100 % MD Robin Appiah Work Phone: [facility] 04-08-2022 17:15-0500 Systolic blood pressure 128 mm[Hg] MD Robin Appiah Work Phone: [facility] 04-08-2022 14:33-0500 Body height 180.34 cm MD Robin Appiah Work Phone: [facility] 04-08-2022 14:33-0500 Body weight 88.1 kg MD Robin Appiah Work Phone: [facility] 03-23-2022 15:30-0500 Body height 180.34 cm Amanda Ford Other [employer] Other 03-23-2022 15:30-0500 Body mass index (BMI) [Ratio] 27.05 kg/m2 Amanda Ford Other [employer] Other 03-23-2022 15:30-0500 Body weight 88 kg Amanda Ford Other [employer] Other 03-23-2022 15:30-0500 Diastolic blood pressure 82 mm[Hg] Amanda Ford Other [employer] Other 03-23-2022 15:30-0500 SaO2% (BldA) [Mass fraction] 98 % Amanda Ford Other [employer] Other 03-23-2022 15:30-0500 Systolic blood pressure 137 mm[Hg] Amanda Ford Other [employer] Other 02-08-2022 10:00-0400 Body height 180.34 cm Amanda Ford Other [employer] Other 02-08-2022 10:00-0400 Body mass index (BMI) [Ratio] 27.47 kg/m2 Amanda Logan Other [employer] Other 02-08-2022 10:00-0400 Body weight 89.36 kg Amanda Logan Other [employer] Other 02-08-2022 10:00-0400 Diastolic blood pressure 62 mm[Hg] Amanda Logan Other [employer] Other 02-08-2022 10:00-0400 Systolic blood pressure 110 mm[Hg] Amanda Logan Other [employer] Other 09-01-2021 14:38-0400 Blood Pressure Location [facility] 09-01-2021 14:38-0400 Diastolic blood pressure 61 mm[Hg] [facility] 09-01-2021 14:38-0400 Heart rate 61 /min [facility] 09-01-2021 14:38-0400 Respiratory rate 18 /min [facility] 09-01-2021 14:38-0400 SaO2% (BldA) [Mass fraction] 100 % [facility] 09-01-2021 14:38-0400 Systolic blood pressure 103 mm[Hg] [facility] 07-24-2021 14:39-0400 Blood Pressure Location [facility] 07-24-2021 14:39-0400 Diastolic blood pressure 77 mm[Hg] [facility] 07-24-2021 14:39-0400 Heart rate 65 /min [facility] 07-24-2021 14:39-0400 Respiratory rate 18 /min [facility] 07-24-2021 14:39-0400 SaO2% (BldA) [Mass fraction] 100 % [facility] 07-24-2021 14:39-0400 Systolic blood pressure 115 mm[Hg] [facility] 07-16-2021 11:00-0400 Body height 180.34 cm Amanda Ford Other [employer] Other 07-16-2021 11:00-0400 Body mass index (BMI) [Ratio] 29.15 kg/m2 Amanda Ford Other [employer] Other 07-16-2021 11:00-0400 Body weight 94.8 kg Amanda Ford Other [employer] Other 07-16-2021 11:00-0400 Diastolic blood pressure 64 mm[Hg] Amanda Ford Other [employer] Other 07-16-2021 11:00-0400 SaO2% (BldA) [Mass fraction] 98 % Amanda Ford Other [employer] Other 07-16-2021 11:00-0400 Systolic blood pressure 102 mm[Hg] Amanda Ford Other [facility] [employer] Other 05-08-2020 08:20-0500 Body Temperature 97.7 [degF] [facility] [place] 05-08-2020 08:20-0500 BP Diastolic 89 mm[Hg] [facility] [place] 05-08-2020 08:20-0500 BP Systolic 156 mm[Hg] Rashard [facility], [place] 05-08-2020 08:20-0500 Pulse (Heart Rate) 101 /min Rashard [facility], [place] 05-08-2020 08:20-0500 Pulse Oximetry 96 % Rashard [facility] 05-08-2020 08:20-0500 Respiratory Rate 19 /min Rashard [facility], [place] 05-06-2020 08:51-0500 BMI (Body Mass Index) 58.86 kg/m2 [facility] [place] 05-06-2020 08:51-0500 Body weight [facility].42 [facility] [place] [place] [place] 05-06-2020 08:51-0500 Height 180.3 cm Rashard [facility] [place] 04-22-2020 13:30-0500 BMI (Body Mass Index) 61.79 kg/m2 [address], [place] 04-22-2020 13:30-0500 Body Temperature 97.11 [degF] [address], [place] 04-22-2020 13:30-0500 Body weight 200.[address] , [place] 04-22-2020 13:30-0500 BP Diastolic 90 mm[Hg] [facility] , [place] 04-22-2020 13:30-0500 BP Systolic 148 mm[Hg] [facility] , [place] 04-22-2020 13:30-0500 Height 180.[address] , [place] 04-22-2020 13:30-0500 Pulse (Heart Rate) 104 /min [facility] 2 [facility], [place] 04-22-2020 13:30-0500 Pulse Oximetry 97 % [facility] , [place] 04-22-2020 13:30-0500 Respiratory Rate 18 /min [facility] [place] Encounters Encounter Date Encounter Type Care Provider Facility Start: 11-20-2024 End: 11-20-2024 Bamboo flowsheet Les Juan DO Work Phone: [facility] Start: 11-20-2024 End: 11-21-2024 Bamboo flowsheet Els Juan DO Work Phone: [facility] Start: 11-20-2024 End: 11-20-2024 Clinisync Result Encounter Les Juan DO Work Phone: [facility] Unsolicited Start: 11-20-2024 End: 11-21-2024 External Result Encounter Les Juan DO Work Phone: [facility] Unsolicited Start: 11-20-2024 End: 11-20-2024 Patient encounter procedure Les Juan DO Work Phone: [facility] Start: 11-20-2024 End: 11-20-2024 Periodic preventive med est patient 18-39 yrs Leschip Monsivaiso DO Work Phone: [facility] Comment on above: Well woman exam with routine gynecological exam; Exposure to STD; Second trimester ([facility]); 18 weeks gestation of ([facility]); Need for maternal serum alpha-protein (MSAFP) screening ([facility]); Screening, , for anatomic survey ([facility]); Thyroid disease Start: 11-20-2024 End: 11-20-2024 ambulatory LES MONSIVAISO Not Available Start: 10-26-2024 End: 10-26-2024 Orders Only Not In System Ref Prov [facility] Start: 10-22-2024 End: 10-22-2024 Office outpatient visit 15 minutes Les Juan DO Work Phone: [facility] Comment on above: 13 weeks gestation o f ([facility]); Second trimester ([facility]); Thyroid disease ; H/O gastric sleeve; H/O iron deficiency anemia; resulting from in vitro fertilization in first trimester ([facility]) Start: 10-22-2024 End: 10-22-2024 ambulatory LES MONSIVAISO Not Available Start: 10-18-2024 End: 10-18-2024 Emergency department patient visit Amanda Shethbilly SOURCING SPECIALIST Work Phone: -Emergency Room Work Phone: Start: 10-10-2024 End: 10-10-2024 Clinisync Result Encounter Les Juan DO Work Phone: [facility] External [facility] Unsolicited Start: 10-10-2024 End: 10-10-2024 Clinisync Result Encounter Les Juan DO Work Phone: [facility] Unsolicited Start: 09-26-2024 End: 09-26-2024 ambulatory Amanda Ford Facility:[facility] Start: 09-20-2024 End: 09-20-2024 Office outpatient visit 5 minutes [facility] Juan Nurse [facility] Comment on above: GA: 9w2d Start: 09-20-2024 End: 09-20-2024 ambulatory DARLEEN SINCLAIR Not Available Start: 09-03-2024 End: 09-03-2024 Nursing evaluation of patient and report Us Tech 1 c Rej Work Phone: [facility] Comment on above: Early stage of pregn paulo ([facility]) Start: 09-03-2024 End: 09-03-2024 ambulatory SHELLY HERNANDEZ Facility:[facility] Start: 08-28-2024 End: 08-28-2024 Nursing evaluation of patient and report [facility] 2 [facility] Work Phone: [facility] Comment on above: resulting from assisted reproductive technology in first trimester ([facility]) Start: 08-28-2024 End: 08-28-2024 ambulatory SHELLY GONZALEZKEY Facility:[facility] Start: 08-24-2024 End: 08-24-2024 Telephone encounter Shelly Hernandez MELY.TRAVEL REGISTERED NURSE NICU Work Phone: [facility] Comment on above: Patient Question Start: 08-23-2024 End: 08-24-2024 Telephone encounter Shelly Keene David BOONE.TRAVEL REGISTERED NURSE NICU Work Phone: [facility] Comment on above: Pain Start: 08-22-2024 End: 08-22-2024 Bamboo flowsheet Darleen Sinclair MD Work Phone: [facility] Start: 08-22-2024 End: 08-22-2024 Bamboo flowsheet Darleen Sinclair MD Work Phone: [facility] Start: 08-22-2024 End: 08-22-2024 Office outpatient visit 25 minutes Darleen Sinclair MD Work Phone: [facility] Comment on above: Abnormal thyroid fun ction test (Primary Dx); H/O gastric bypass; 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CMS/HCC); Vitamin D deficiency Start: 08-22-2024 End: 08-22-2024 ambulatory DARLEEN SINCLAIR Not Available Start: 08-20-2024 End: 08-20-2024 Telemedicine consultation with patient Shelly Hernandez MELY.TRAVEL REGISTERED NURSE NICU Work Phone: [facility] Start: 08-20-2024 End: 08-20-2024 ambulatory Shelly Hernandez SOURCING SPECIALIST.TRAVEL REGISTERED NURSE NICU Work Phone: [facility] Comment on above: 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) (Primary Dx) Start: 08-18-2024 End: 08-23-2024 ambulatory Shelly Keene David BOONE.TRAVEL REGISTERED NURSE NICU Work Phone: [facility] Comment on above: Ultrasound Start: 08-17-2024 End: 08-17-2024 ambulatory Amanda Ford Facility:[facility] Start: 08-16-2024 End: 08-16-2024 Telephone encounter Shelly Hernandez APRN.TRAVEL REGISTERED NURSE NICU Work Phone: [facility] Comment on above: positive for pregnan cy Start: 08-15-2024 End: 08-15-2024 Telephone encounter Shelly Hernandez APRN.TRAVEL REGISTERED NURSE NICU Work Phone: [facility] Comment on above: Patient Question Start: 08-15-2024 End: 08-15-2024 ambulatory [facility] Yecenia David Facility:[facility] Start: 08-13-2024 End: 08-13-[address] [facility] Facility:[facility] Start: 07-31-2024 End: 07-31-2024 ambulatory SELF Facility:[facility] Start: 07-31-2024 End: 07-31-2024 Patient encounter procedure Andrology Ophthalmic Nurse Work Phone: [facility] Comment on above: Procreative manageme nt (Primary Dx) Start: 07-30-2024 End: 07-30-2024 Telephone encounter Shelly Hernandez APRN.TRAVEL REGISTERED NURSE NICU Work Phone: [facility] Comment on above: Patient Question Start: 07-25-2024 End: 07-25-2024 ambulatory SELF Facility:[facility] Start: 07-07-2024 End: 07-07-2024 ambulatory MARKTY KAHNEMORY Facility:[facility] Start: 07-07-2024 End: 07-07-2024 Patient encounter procedure Andrology Ophthalmic Nurse Work Phone: [facility] Comment on above: Procreative manageme nt (Primary Dx) Encounter for artifi cial insemination (Primary Dx) Start: 07-06-2024 End: 07-06-2024 Telephone encounter Shelly Hernandez APRN.TRAVEL REGISTERED NURSE NICU Work Phone: [facility] Comment on above: Patient calling back /re iui 07/07 unsure Start: 07-05-2024 End: 07-06-2024 Telephone encounter Ignacio Guy MD Work Phone: [facility] Comment on above: re iui this wknd/has cervical polyp question Start: 07-04-2024 End: 07-04-2024 Telephone encounter Shelly Hernandez APRN.TRAVEL REGISTERED NURSE NICU Work Phone: [facility] Comment on above: Treatment Planning Start: 07-04-2024 End: 07-11-2024 ambulatory Shelly Hernandez SOURCING SPECIALIST.TRAVEL REGISTERED NURSE NICU Work Phone: [facility] Comment on above: Ovulating Start: 07-04-2024 End: 07-04-2024 Patient encounter procedure Us Tech 3 [facility] Work Phone: [facility] Start: 07-02-2024 End: 07-02-2024 ambulatory SHELLY HERNANDEZ Facility:[facility] Start: 06-29-2024 End: 06-29-2024 ambulatory SHELLY HERNANDEZ Facility:[facility] Start: 06-23-2024 End: 06-29-2024 ambulatory Shelly Hernandez SOURCING SPECIALIST.TRAVEL REGISTERED NURSE NICU Work Phone: [facility] Comment on above: Negative t est and possible hematoma Start: 06-09-2024 End: 06-09-2024 ambulatory IGNACIO ATTARAN Facility:[facility] Start: 06-09-2024 End: 06-09-2024 Patient encounter procedure Andrology Ophthalmic Nurse Work Phone: [facility] Comment on above: Procreative manageme nt (Primary Dx) Female infertility ( Primary Dx) Start: 06-05-2024 End: 06-07-2024 ambulatory Shelly Hernandez SOURCING SPECIALIST.TRAVEL REGISTERED NURSE NICU Work Phone: [facility] Start: 06-05-2024 End: 06-07-2024 Patient encounter procedure Shelly Hernandez SOURCING SPECIALIST.TRAVEL REGISTERED NURSE NICU Work Phone: [facility] Comment on above: IUI appointment Start: 05-22-2024 End: 05-23-2024 ambulatory Shelly Hernandez SOURCING SPECIALIST.TRAVEL REGISTERED NURSE NICU Work Phone: [facility] Comment on above: Progesterone results Start: 05-21-2024 End: 05-21-2024 ambulatory Shelly Hernandez Facility:[facility] Start: 05-18-2024 End: 05-18-2024 ambulatory SHELLY HERNANDEZ Facility:[facility] Start: 05-09-2024 End: 05-09-2024 ambulatory Shelly Hernandez SOURCING SPECIALIST.TRAVEL REGISTERED NURSE NICU Work Phone: [facility] Comment on above: Reproductive mgmt, 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) Start: 05-09-2024 End: 05-09-2024 Telemedicine consultation with patient Shelly Hernandez SOURCING SPECIALIST.TRAVEL REGISTERED NURSE NICU Work Phone: [facility] Start: 05-06-2024 End: 05-07-2024 ambulatory Shelly Hernandez SOURCING SPECIALIST.TRAVEL REGISTERED NURSE NICU Work Phone: [facility] Comment on above: Consent form Start: 05-02-2024 End: 05-02-2024 Telemedicine consultation with patient Saúl Agustin Destin PhD Work Phone: [facility] Comment on above: Bipolar 1 disorder ( Multi) (Primary Dx); Infertility counseling Start: 05-02-2024 End: 05-02-2024 ambulatory [facility] Ambulatory Start: 04-26-2024 End: 04-26-2024 ambulatory [facility] Work Phone: Start: 04-26-2024 End: 04-26-2024 Patient encounter procedure [facility] Work Phone: Start: 04-24-2024 End: 04-24-2024 ambulatory SHELLY DAVID Facility:[facility] Start: 04-23-2024 End: 04-23-2024 ambulatory [facility] Work Phone: Start: 04-23-2024 End: 04-23-2024 Patient encounter procedure [facility] Work Phone: Start: 04-02-2024 End: 04-03-2024 ambulatory Shelly Hernandez SOURCING SPECIALIST.TRAVEL REGISTERED NURSE NICU Work Phone: Reproductive Endocrinology Infertility Comment on above: Genetic testing Start: 03-09-2024 End: 03-09-2024 ambulatory Shelly Hernandez SOURCING SPECIALIST.TRAVEL REGISTERED NURSE NICU Work Phone: Reproductive Endocrinology Infertility Comment on above: Reproductive mgmt, 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); Special screening examination for infectious diseases; Encounter for other genetic testing of female for procreative management Start: 03-09-2024 End: 03-09-2024 Telemedicine consultation with patient Shelly Hernandez SOURCING SPECIALIST.TRAVEL REGISTERED NURSE NICU Work Phone: Reproductive Endocrinology Infertility Start: 02-29-2024 End: 02-29-2024 ambulatory SHELLY HERNANDEZ Facility:[facility] Start: 02-28-2024 End: 02-28-2024 ambulatory IGNACIO GUY Facility:[facility] Start: 02-28-2024 End: 02-28-2024 Patient encounter procedure Ignacio Guy MD Work Phone: Reproductive Endocrinology Infertility Comment on above: Encounter for male f actor 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 (Primary Dx) Start: 02-27-2024 End: 02-27-2024 ambulatory Amanda Ford APRN Work Phone: [facility] Work Phone: Start: 02-27-2024 End: 02-27-2024 Patient encounter procedure Amanda Ford APRN Work Phone: [facility] Work Phone: Start: 02-20-2024 Non-patient / Non-visit [facility] Work Phone: Start: 02-20-2024 [...] Department Unsolicited Start: 01-17-2024 End: 01-17-2024 ambulatory SOURCING SPECIALISTTanja Patel Logan Work Phone: [facility] Work Phone: Start: 01-17-2024 End: 01-17-2024 Patient encounter procedure SOURCING SPECIALIST Amanda Logan Work Phone: [facility] Work Phone: Start: 01-10-2024 Non-patient / Non-visit SOURCING SPECIALIST Amanda Logan Work Phone: [facility] Work Phone: Start: 12-20-2023 End: 12-20-2023 ambulatory SOURCING SPECIALIST Amanda Jovanir Work Phone: [facility] Work Phone: Start: 12-20-2023 End: 12-20-2023 Patient encounter procedure SOURCING SPECIALIST Amanda Rosarioacher Work Phone: [facility] [place] [facility] Work Phone: Start: 12-09-2023 ambulatory Romeo Santana DO [facility] Start: 12-07-2023 Non-patient / Non-visit SOURCING SPECIALISTTanja MittalAmanda Logan Work Phone: [facility] [place] [facility] Work Phone: Start: 12-07-2023 End: 12-07-2023 Admission to same day surgery center MELY Patel Logan Work Phone: [facility] [place] Start: 12-07-2023 End: 12-07-2023 ambulatory MELY Shethsarahangeldeirdre Work Phone: [facility] Work Phone: Start: 12-01-2023 End: 12-01-2023 ambulatory SOURCING SPECIALISTTanja Patel Logan Work Phone: [facility] Work Phone: Start: 12-01-2023 End: 12-01-2023 Patient encounter procedure SOURCING SPECIALISTTanja Patel Logan Work Phone: [facility] Work Phone: Start: 11-28-2023 End: 11-28-2023 Patient encounter procedure SOURCING SPECIALIST Amanda Logan Work Phone: [facility] Work Phone: Start: 11-28-2023 End: 11-28-2023 ambulatory MELY Patel Logan Work Phone: [facility] Work Phone: Start: 11-28-2023 End: 11-28-2023 ambulatory LESChip MONSIVAISO Not Available Start: 11-02-2023 End: 11-02-2023 Emergency department patient visit Amanda Ford Facility:[facility] Start: 11-01-2023 End: 11-01-2023 ambulatory SOURCING SPECIALIST Amanda Logan Work Phone: [facility] Work Phone: Start: 11-01-2023 End: 11-01-2023 Patient encounter procedure SOURCING SPECIALIST Amanda Logan Work Phone: [facility] [place] [facility] Work Phone: Start: 10-26-2023 End: 10-26-2023 ambulatory SOURCING SPECIALIST Amanda Logan Work Phone: [facility] Work Phone: Start: 10-26-2023 End: 10-26-2023 Patient encounter procedure SOURCING SPECIALIST Amanda Logan Work Phone: [facility] Work Phone: Start: 10-13-2023 End: 10-13-2023 ambulatory [facility] Work Phone: Start: 10-13-2023 End: 10-13-2023 Patient encounter procedure [facility] [facility] Work Phone: Start: 09-15-2023 Non-patient / Non-visit [facility] Work Phone: Start: 06-08-2023 End: 06-08-2023 ambulatory [facility] Work Phone: Start: 06-08-2023 End: 06-08-2023 Patient encounter procedure [facility] [facility] [employer] [facility] Work Phone: Start: 05-17-2023 End: 05-17-2023 ambulatory Amanda Ford Other [employer] Other Start: 05-17-2023 Office outpatient visit 15 minutes Romeo Santana [facility] Start: 05-17-2023 Telephone encounter Amanda Janet her [facility] Start: 05-17-2023 End: 05-17-2023 Patient encounter procedure [facility]- Start: 04-28-2023 End: 04-28-2023 ambulatory Amanda Ford Other [employer] Other Start: 04-28-2023 Telephone encounter Amanda Janet her [facility] Start: 04-22-2023 End: 04-22-2023 ambulatory Amanda Ford Other [employer] Other Start: 04-22-2023 Telephone encounter Amanda Gonzales her [facility] Start: 04-19-2023 End: 04-19-2023 ambulatory Amanda Hahnr Other [employer] Other Start: 04-19-2023 Telephone encounter Amanda Gonzales her [facility] [address] Start: 04-14-2023 End: 04-14-2023 ambulatory Amanda Shethsarahangelr Other [employer] Other Start: 04-14-2023 Telephone encounter Amanda Gonzales her [facility] Start: 03-17-2023 End: 03-17-2023 ambulatory Romeo Santana Other [employer] Other Start: 03-17-2023 Telephone encounter Romeo Santana [facility] [facility] Start: 02-07-2023 End: 02-07-2023 ambulatory Amanda Jovanir Other [employer] Other Start: 02-07-2023 Office outpatient visit 15 minutes Petr Alireza [facility] [place] Start: 02-07-2023 Telephone encounter Amanda Shethsarahsari her [facility] Start: 01-27-2023 End: 01-27-2023 ambulatory Amanda Hahnr Other [employer] Other Start: 01-27-2023 Telephone encounter Amanda Gonzales her [facility] [place] Start: 01-19-2023 End: 01-19-2023 ambulatory Amanda Rosarioacher Other [employer] Other Start: 01-19-2023 Telephone encounter Amanda Gonzales her [facility] Start: 01-13-2023 End: 01-13-2023 ambulatory Amanda Ford Other [employer] Other Start: 01-13-2023 Telephone encounter Amanda Gonzales her [facility] Start: 01-10-2023 End: 01-10-2023 ambulatory Amanda Hahnr Other [employer] Other Start: 01-10-2023 Telephone encounter Amanda Gonzales her [facility] Start: 01-06-2023 End: 01-06-2023 ambulatory Amanda Hahnr Other [employer] Other Start: 01-06-2023 Telephone encounter Amanda Gonzales her [facility] Start: 12-27-2022 End: 12-27-2022 ambulatory Petr Alireza Other [employer] Other Start: 12-27-2022 Office outpatient visit 15 minutes Petr Lya [facility] [place] Start: 11-10-2022 End: 11-10-2022 ambulatory Amanda Ford Other [employer] Other Start: 11-10-2022 Telephone encounter Amanda Gonzales her [facility] Start: 10-21-2022 End: 10-21-2022 ambulatory Amanda Ponceacher Other [employer] Other Start: 10-21-2022 Telephone encounter Amanda Gonzales her [facility] [place] Start: 10-11-2022 End: 10-11-2022 ambulatory Petr Patmer Other [employer] Other Start: 10-11-2022 Office consultation new/estab patient 40 min Petr Lay [facility] [place] Start: 09-30-2022 End: 09-30-2022 ambulatory Amanda Rosarioacher Other [employer] Other Start: 09-30-2022 Office outpatient visit 15 minutes Amanda Rosarioacher [facility] Start: 08-25-2022 End: 08-25-2022 ambulatory Amanda Rosarioacher Other [employer] Other Start: 08-25-2022 Office outpatient visit 15 minutes Amanda Rosarioacher [facility] Start: 08-20-2022 End: 08-20-2022 ambulatory Amanda Rosarioacher Other [employer] Other Start: 08-20-2022 Office outpatient visit 15 minutes Amanda Rosarioacher [facility] Start: 07-19-2022 End: 07-19-2022 ambulatory Amanda Shethsarahacher Other [employer] Other Start: 07-19-2022 Telephone encounter Amanda Gonzales her [facility] [place] Start: 07-08-2022 End: 07-08-2022 ambulatory Amanda Shethsarahacher Other [employer] Other Start: 07-08-2022 Telephone encounter Amanda Gonzales her [facility] [place] Start: 06-23-2022 End: 06-23-2022 ambulatory SOURCING SPECIALIST Amanda Logan Work Phone: [facility] Work Phone: Start: 06-23-2022 End: 06-23-2022 Patient encounter procedure SOURCING SPECIALIST Amanda Logan Work Phone: [facility] [place] Work Phone: Start: 06-17-2022 End: 06-17-2022 ambulatory Amanda Logan Other [employer] Other Start: 06-17-2022 Telephone encounter Amanda Janet her [employer] Start: 06-16-2022 End: 06-16-2022 ambulatory MELY Patel Logan Work Phone: [facility] Work Phone: Start: 06-16-2022 End: 06-16-2022 Patient encounter procedure SOURCING SPECIALIST Amanda Logan Work Phone: [facility] [place] Work Phone: Start: 06-10-2022 End: 06-11-2022 Evaluation and management of inpatient MD Robin Appiah Work Phone: [facility] Work Phone: Start: 06-10-2022 observation encounter MD Estrada Appiah Work Phone: [facility] Work Phone: Start: 06-09-2022 End: 06-09-2022 ambulatory MD Robin Appiah Work Phone: [facility] Work Phone: Start: 06-09-2022 End: 06-09-2022 Patient encounter procedure MD Robin Appiah Work Phone: [facility] [place] Work Phone: Start: 04-26-2022 End: 04-26-2022 ambulatory Amanda Logan Other [employer] Other Start: 04-26-2022 Telephone encounter Amanda Janet her [employer] Start: 04-23-2022 End: 04-23-2022 ambulatory Amanda Ford Other [employer] Other Start: 04-23-2022 Telephone encounter Amanda Shethfelecia her [facility] Start: 04-21-2022 End: 04-21-2022 Departed Referred MD Robin Appiah Work Phone: [facility] [place] Work Phone: Start: 04-21-2022 End: 04-21-2022 ambulatory MD Robin Appiah Work Phone: [facility] Work Phone: Start: 04-21-2022 Office outpatient visit 15 minutes Amanda Ford [facility] Start: 04-20-2022 End: 04-20-2022 ambulatory Amanda Logan Other [employer] Other Start: 04-20-2022 Telephone encounter Amanda Shethfelecia her [facility] Start: 04-13-2022 End: 04-13-2022 ambulatory Amanda Logan Other [employer] Other Start: 04-13-2022 Telephone encounter Amanda Shethsarahsari her [facility] [facility] Start: 04-10-2022 End: 04-10-2022 Emergency department patient visit MD Robin Appiah Work Phone: [facility] Work Phone: Start: 04-08-2022 End: 04-08-2022 Emergency department patient visit MD Robin Appiah Work Phone: [facility] Work Phone: Start: 03-30-2022 End: 03-30-2022 ambulatory Amanda Logan Other [employer] Other Start: 03-30-2022 Telephone encounter Amanda Shethfelecia her [facility] Start: 03-23-2022 End: 03-23-2022 Patient encounter procedure MD Robin Appiah Work Phone: [facility] Start: 03-23-2022 End: 03-23-2022 ambulatory Amanda Ford Other [employer] Other Start: 03-23-2022 Office outpatient visit 15 minutes Amanda Ford [facility] Start: 03-17-2022 End: 03-17-2022 ambulatory Amandarufnio Ford Other [employer] Other Start: 03-17-2022 Telephone encounter Amanda cha [facility] Start: 02-08-2022 End: 02-08-2022 ambulatory Amanda Ford Other [employer] Other Start: 02-08-2022 Office outpatient visit 25 minutes Amanda Ford [facility] Start: 09-01-2021 End: 09-01-2021 Patient encounter procedure [facility] Start: 08-25-2021 End: 08-25-2021 Patient encounter procedure [facility] Start: 08-06-2021 End: 08-06-2021 Patient encounter procedure [facility] Start: 07-24-2021 End: 07-24-2021 Patient encounter procedure [facility] Start: 07-23-2021 End: 04-07-2022 ambulatory Amanda Ford Other [employer] Other Start: 07-23-2021 Telephone encounter Amanda Shethfelecia her [employer] [facility] Start: 07-16-2021 End: 07-16-2021 ambulatory Amanda Logan Other [employer] Other Start: 07-16-2021 Office outpatient ne w 30 minutes Amanda Ford [facility] [place] Start: 03-30-2021 End: 03-30-2021 Emergency department patient visit ROBIN DOMINGUEZGRICELDA [facility] Start: 05-06-2020 End: 05-08-2020 ambulatory [facility] Start: 05-06-2020 End: 05-08-2020 Subsequent hospital visit by physician Rashard Murray Phone: [facility]o/Med Surg Comment on above: Post-op pain (Primar y Dx) Start: 05-02-2020 End: 05-03-2020 Patient encounter procedure NIKKI [facility] Start: 05-02-2020 End: 05-02-2020 Subsequent hospital visit by physician Michael Hendricks Screening Schedule MICHAEL Covid Screening Comment on above: Pre-op testing (Prim cj Dx) Start: 04-22-2020 End: 04-25-2020 ambulatory RASHARD Gilmore [facility] Start: 04-22-2020 End: 04-27-2020 ambulatory RASHARD Gilmore [facility] Start: 04-22-2020 End: 04-24-2020 Subsequent hospital visit by physician Lam C-[facility] Comment on above: Arrived Start: 04-22-2020 End: 04-26-2020 Subsequent hospital visit by physician Martita Mercedes 2 [facility] Pre-Admit Testing Procedures Date Procedure Procedure Detail Performing Clinician Start: 11-20-2024 RECURRENT VAGINITIS (HTRX) Les Martinez DO Work Phone: Start: 11-20-2024 ALL THYROID STIM HORMONE Les Juan DO Work Phone: Start: 11-20-2024 Urnls dip stick/tabl et rgnt non-auto w/o micrscp Les Juan DO Work Phone: Start: 10-22-2024 Urnls dip stick/tabl et rgnt non-auto w/o micrscp Les Juan DO Work Phone: Start: 10-18-2024 UNLISTED LAB TEST Not I n System Ref Prov Start: 10-18-2024 Determination of kendrick wth of fungi Amanda Ford SOURCING SPECIALIST Work Phone: Start: 10-18-2024 Trichomonas vaginali s detection Amanda Ford SOURCING SPECIALIST Work Phone: Start: 10-18-2024 Diagnostic ultrasoun d of gravid uterus Amanda Ford SOURCING SPECIALIST Work Phone: Start: 10-16-2024 UNLISTED LAB TEST Not I n System Ref Prov Start: 10-10-2024 BOX TEST Les Fazi o DO Work Phone: Start: 09-26-2024 Antibody rubella [...] after 1st trimest 04/18 gestation Shelly Hernandez SOURCING SPECIALIST.TRAVEL REGISTERED NURSE NICU Work Phone: Start: 08-28-2024 Us preg uterus after 1st trimest 04/18 gestation Shelly Hernandez SOURCING SPECIALIST.TRAVEL REGISTERED NURSE NICU Work Phone: Start: 07-04-2024 Us pelvic nonobstetr ic real-time image complete Ignacio Guy MD Work Phone: Start: 04-02-2024 Antibody screen SHELLY HERNANDEZ Comment on above: Order Comment: Speci men Type: BLOOD SPECIMEN Ordering Facility: [facility] Address: [address] [place] [address] Performed By: #### T SPN #### [facility] CLIA [id number] [address] [place] [address] [place] Start: 02-20-2024 IGP,APTIMA HPV,AGE GDLN Les Juan DO Work Phone: Start: 02-20-2024 Microscopic observat ion [Identifier] in Cervix by Cyto stain Saúl Enriquez PhD Work Phone: Start: 12-07-2023 OR Shoulder Scope RCR/Biceps Tendon (Right) MELY Ford Work Phone: Start: 06-10-2022 Computed tomography of [...] Basic metabolic pane l calcium total Rei Bishop Work Phone: Start: 05-08-2020 Blood count complete auto&auto difrntl wbc Rei Work Phone: Start: 05-07-2020 Radex esophagus Rashard Olivera Work Phone: Start: 05-07-2020 Basic metabolic pane l calcium total Rashard Deirdre Olivera Work Phone: Start: 05-07-2020 Blood count complete automated Rashard Gilmore [facility] Work Phone: Start: 05-06-2020 Basic metabolic pane l calcium total Rashard Gilmore Arias Work Phone: Start: 05-06-2020 Blood count complete automated Rashard Gilmore Arias Work Phone: Start: 05-06-2020 End: 05-06-2020 GASTRECTOMY SLEEVE LAPAROSCOPIC ROBOTIC Rashard Gilmore Arias Work Phone: Start: 05-06-2020 Urine test visual color cmprsn meths Rashard Gilmore Arias Work Phone: Start: 05-06-2020 Level iv surg pathol ogy gross&microscopic exam Rashard Deirdre Arias Work Phone: Start: 04-22-2020 Radiologic exam ches t 2 views Rashard Olivera Work Phone: Start: 04-22-2020 Assay of nicotine Rashad daley Deirdre PérezOlivera Work Phone: Start: 04-22-2020 Basic metabolic pane l calcium total Rashard Gilmore Arias Work Phone: Start: 04-22-2020 Blood count complete automated Rashard Gilmore Arias Work Phone: Start: 04-22-2020 Prothrombin time Narendra Gilmore Arias Work Phone: Start: 04-22-2020 Thromboplastin time partial plasma/whole blood Rashard Gilmore Airas Work Phone: Start: 04-22-2020 Ecg routine ecg w/le ast 12 lds i&r only Rashard Gilmore Arias Work Phone: Start: 04-22-2020 EKG REPORT Hpf Ksenia ng Cholecystectomy Samir robertson Comment on above: 2015 Plan of Treatment Date Care Activity Detail Author Start: 2070 RSV Vaccine (1 - 1-dose 75+ series) RSV Vaccine (1 - 1-dose 75+ series) [facility] Start: 2045 Zoster Vaccines (1 of 2) Zoster Vaccines (1 of 2) [facility] Start: 12-25-2032 DTaP/Tdap/Td Vaccines (2 - Td or Tdap) DTaP/Tdap/Td Vaccines (2 - Td or Tdap) [facility] Start: 12-25-2032 Urine microalbumin profile DTaP,Tdap,Td Vaccine (2 - Td or Tdap) [facility] Start: 02-19-2027 Screening for malignant neoplasm of cervix [facility] Start: 08-21-2025 End: 08-21-2025 Patient encounter procedure [facility] Start: 02-20-2025 End: 02-20-2025 Patient encounter procedure [facility] Start: 12-19-2024 End: 12-19-2024 Patient encounter procedure 12/19/2024 10:00 AM EDT Routine [facility] [address] [place] [id number] Jojo Ames PA [address] [place] [address] [facility] Start: 12-17-2024 Influenza vaccination [facility] Start: 12-05-2024 End: 12-05-2024 Patient encounter procedure [facility] Start: 12-04-2024 End: 12-04-2024 Professional / ancillary services management 12/04/2024 8:30 AM EDT Ancillary Procedure GUDELIA Lamb OBNAOMIE [address] [place] [id number] [facility] Start: 11-20-2024 End: 12-21-2024 Alpha fetoprotein, maternal Alpha fetoprotein, maternal Lab Routine Need for maternal serum alpha-protein (MSAFP) screening ([facility]) Expected: 11/20/2024 (Approximate), Expires: 12/21/2024 [facility] Comment on above: Expected: 11/20/2024 (Approximate), Expi res: 12/21/2024 Start: 11-20-2024 End: 02-20-2025 US for US OB 14+ weeks anatomy scan Imaging Routine Screening, , for anatomic survey ([facility]) Expected: 11/20/2024 (Approximate), Expires: 02/20/2025 [facility] Comment on above: Expected: 11/20/2024 (Approximate), Expi res: 02/20/2025 Start: 11-20-2024 End: 11-20-2024 Patient encounter procedure [facility] Comment on above: Arrived Start: 10-22-2024 End: 10-22-2024 Patient encounter procedure 10/22/2024 11:20 AM EDT Routine [facility] [address] [place] [id number] Les Martinez, [address] [place] [address] [facility] Start: 10-18-2024 Bacteria identified in Urine by Culture Urine Culture [facility] Start: 10-18-2024 Genital Culture Genital Culture [facility] Start: 10-18-2024 Urine culture [facility] Start: 10-18-2024 [facility] Start: 09-20-2024 End: 09-20-2025 ABO/Rh ABO/Rh Lab Routine Missed menses , unspecified gestational age Expected: 09/20/2024 (Approximate), Expires: 09/20/2025 [facility] Comment on above: Expected: 09/20/2024 (Approximate), Expi res: 09/20/2025 Start: 09-20-2024 End: 09-20-2025 Blood type and Indirect antibody screen panel - Blood Type and screen Lab Routine Missed menses , unspecified gestational age Expected: 09/20/2024 (Approximate), Expires: 09/20/2025 [facility] Work Phone: Comment on above: Expected: 09/20/2024 (Approximate), Expi res: 09/20/2025 Start: 09-20-2024 End: 09-20-2025 Drugs of abuse panel - Urine by Screen method Rapid drug screen, urine Lab Routine , unspecified gestational age Encounter for supervision of normal first in first trimester Expected: 09/20/2024 (Approximate), Expires: 09/20/2025 [facility] Comment on above: Expected: 09/20/2024 (Approximate), Expi res: 09/20/2025 Start: 09-13-2024 End: 09-13-2024 ambulatory 09/13/2024 2:30 PM EDT Initial [facility] [address] [place] [address] [place] [address] [facility] Start: 09-13-2024 End: 09-13-2024 Professional / ancillary services management 09/13/2024 2:00 PM EDT Ancillary Procedure [facility] [place] [address] [facility] Start: 09-03-2024 End: 09-03-2024 Nursing evaluation of patient and report Reproductive Endocrinology Infertility Comment on above: scan ob scan, non ivf Start: 08-22-2024 End: 08-22-2025 25-hydroxyvitamin D3 [Mass/volume] in Serum or Plasma Vitamin D 25 hydroxy Lab Routine H/O gastric bypass Vitamin D deficiency Expected: 08/22/2024 (Approximate), Expires: 08/22/2025 [facility] Comment on above: Expected: 08/22/2024 (Approximate), Expi res: 08/22/2025 Start: 08-22-2024 End: 08-22-2025 Cobalamin (Vitamin B12) [Mass/volume] in Serum or Plasma Vitamin B12 Lab Routine H/O gastric bypass Expected: 08/22/2024 (Approximate), Expires: 08/22/2025 [facility] Comment on above: Expected: 08/22/2024 (Approximate), Expi res: 08/22/2025 Start: 08-22-2024 End: 08-22-2025 Thiamine (aka Vitamin B1) Thiamine (aka Vitamin B1) Lab Routine H/O gastric bypass Expected: 08/22/2024 (Approximate), Expires: 08/22/2025 [facility] Comment on above: Expected: 08/22/2024 (Approximate), Expi res: 08/22/2025 Start: 08-22-2024 End: 08-22-2025 Thyrotropin [Units/volume] in Serum or Plasma TSH Lab Routine Abnormal thyroid function test Expected: 08/22/2024 (Approximate), Expires: 08/22/2025 [facility] Comment on above: Expected: 08/22/2024 (Approximate), Expi res: 08/22/2025 Start: 08-22-2024 End: 08-22-2025 Thyroxine (T4) free [Mass/volume] in Serum or Plasma T4, free Lab Routine Abnormal thyroid function test Expected: 08/22/2024 (Approximate), Expires: 08/22/2025 [facility] Comment on above: Expected: 08/22/2024 (Approximate), Expi res: 08/22/2025 Start: 08-22-2024 End: 08-22-2025 Triiodothyronine (T3) Free [Mass/volume] in Serum or Plasma T3, free Lab Routine Abnormal thyroid function test Expected: 08/22/2024 (Approximate), Expires: 08/22/2025 [facility] Work Phone: Comment on above: Expected: 08/22/2024 (Approximate), Expi res: 08/22/2025 Start: 08-22-2024 End: 08-22-2024 Patient encounter procedure 08/22/2024 10:00 AM EDT Office Visit [facility] ENDOCRINOLOG[facility] [address] [place] [address] Darleen Sinclair MD [address] [place] [address] Arrived [facility] Comment on above: Arrived Start: 08-20-2024 End: 08-20-2025 OBSTETRIC ULTRASOUND WHI OBSTETRIC ULTRASOUND WHI Anc Imaging Routine 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) Expected: 08/20/2024, Expires: 08/20/2025 [facility] Work Phone: Comment on above: Expected: 08/20/2024, Expires: Start: 08-20-2024 End: 08-20-2024 ambulatory 08/20/2024 8:30 AM EDT [facility] Reproductive Endocrinology Infertility [address] [place] [address] Shelly Hernandez APRN.TRAVEL REGISTERED NURSE NICU [address] [place] [address] preg appt Reproductive Endocrinology Infertility Comment on above: preg appt Start: 07-07-2024 End: 07-07-2024 Patient encounter procedure [facility] Comment on above: donor thaw iui d Start: 05-09-2024 End: 05-09-2024 ambulatory 05/09/2024 8:00 AM EST [facility] Reproductive Endocrinology Infertility [address] [place] [address] Shelly Hernandez APRN.TRAVEL REGISTERED NURSE NICU [address] [place] [address] donor sperm teach Reproductive Endocrinology Infertility Comment on above: donor sperm teach Start: 04-26-2024 Patient referral [facility] Work Phone: Start: 03-11-2024 End: 06-10-2024 25-hydroxyvitamin D3 [Mass/volume] in Serum or Plasma VITAMIN D 25 HYDROXY Lab Routine Reproductive mgmt, 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 Expected: 03/11/2024, Expires: 06/10/2024 [facility] Comment on above: Expected: 03/11/2024, Expires: Start: 03-11-2024 End: 06-10-2024 CARRIER SCREEN, EXPANDED CARRIER SCREEN, EXPANDED Lab Routine Encounter for other genetic testing of female for procreative management Expected: 03/11/2024, Expires: 06/10/2024 [facility] Comment on above: Expected: 03/11/2024, Expires: Start: 03-11-2024 End: 06-10-2024 Chlamydia trachomatis+Neisseria gonorrhoeae DNA [Presence] in Unspecified specimen by AC with probe detection GONORRHEA/CHLAMYDIA NAAT Lab Routine Special screening examination for infectious diseases Expected: 03/11/2024, Expires: 06/10/2024 [facility] Comment on above: Expected: 03/11/2024, Expires: Start: 03-11-2024 End: 06-10-2024 Cytomegalovirus IgG Ab [Units/volume] in Serum or Plasma CMV IGG ANTIBODY BL Lab Routine Special screening examination for infectious diseases Expected: 03/11/2024, Expires: 06/10/2024 [facility] Comment on above: Expected: 03/11/2024, Expires: Start: 03-11-2024 End: 06-10-2024 Cytomegalovirus IgM Ab [Units/volume] in Serum or Plasma CMV IGM AB Lab Routine Special screening examination for infectious diseases Expected: 03/11/2024, Expires: 06/10/2024 [facility] Comment on above: Expected: 03/11/2024, Expires: Start: 03-11-2024 End: 06-10-2024 Hemoglobin A1c in Blood HEMOGLOBIN A1C Lab Routine Reproductive mgmt, 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 Expected: 03/11/2024, Expires: 06/10/2024 [facility] Comment on above: Expected: 03/11/2024, Expires: Start: 03-11-2024 End: 06-10-2024 Hepatitis B virus core Ab [Presence] in Serum HEPATITIS B CORE ANTIBODY TOTAL Lab Routine Special screening examination for infectious diseases Expected: 03/11/2024, Expires: 06/10/2024 [facility] Comment on above: Expected: 03/11/2024, Expires: Start: 03-11-2024 End: 06-10-2024 Hepatitis B virus surface Ag [Presence] in Serum HEPATITIS B SURFACE ANTIGEN Lab Routine Special screening examination for infectious diseases Expected: 03/11/2024, Expires: 06/10/2024 [facility] Comment on above: Expected: 03/11/2024, Expires: Start: 03-11-2024 End: 06-10-2024 Hepatitis C virus Ab [Presence] in Serum HEPATITIS C ANTIBODY IA WITH CONFIRMATION Lab Routine Special screening examination for infectious diseases Expected: 03/11/2024, Expires: 06/10/2024 [facility] Comment on above: Expected: 03/11/2024, Expires: Start: 03-11-2024 End: 06-10-2024 HIV 1+2 Ab [Presence] in Serum or Plasma by Immunoassay HIV 1/2 COMBO WITH REFLEX TO DIFFERENTIATION Lab Routine Special screening examination for infectious diseases Expected: 03/11/2024, Expires: 06/10/2024 [facility] Comment on above: Expected: 03/11/2024, Expires: Start: 03-11-2024 End: 06-10-2024 RUBELLA IGG ANTIBODY RUBELLA IGG ANTIBODY Lab Routine Special screening examination for infectious diseases Expected: 03/11/2024, Expires: 06/10/2024 [facility] Comment on above: Expected: 03/11/2024, Expires: Start: 03-11-2024 End: 06-10-2024 SYPHILIS TREPONEMAL W/REFLEX SYPHILIS TREPONEMAL W/REFLEX Lab Routine Special screening examination for infectious diseases Expected: 03/11/2024, Expires: 06/10/2024 [facility] Comment on above: Expected: 03/11/2024, Expires: Start: 03-11-2024 End: 06-10-2024 TYPE + SCREEN TYPE + SCREEN Blood Bank Routine Reproductive mgmt, 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 Expected: 03/11/2024, Expires: 06/10/2024 [facility] Comment on above: Expected: 03/11/2024, Expires: Start: 03-11-2024 End: 06-10-2024 VARICELLA ZOSTER IGG VARICELLA ZOSTER IGG Lab Routine Special screening examination for infectious diseases Expected: 03/11/2024, Expires: 06/10/2024 [facility] Work Phone: Comment on above: Expected: 03/11/2024, Expires: Start: 03-09-2024 End: 03-09-2024 ambulatory 03/09/2024 10:00 AM EST [facility] Reproductive Endocrinology Infertility [address] [place] [address] Shelly Hernandez APRN.TRAVEL REGISTERED NURSE NICU [address] [place] [address] Donor sperm teach Reproductive Endocrinology Infertility Comment on above: Donor sperm teach Start: 02-20-2024 End: 02-20-2024 Patient encounter procedure 02/20/2024 2:50 PM EST Office Visit [facility] [address] [place] [id number] Les Martinez DO [address] [place] [address] Arrived [facility] Comment on above: Arrived Start: 12-18-2023 Covid-19 Vaccine ( season) Covid-19 Vaccine ( season) [facility] Start: 12-18-2023 Covid-19 Vaccine ( season) Covid-19 Vaccine ( season) [facility] Start: 12-18-2023 Influenza vaccination Influenza Vaccine (#1) [facility] Start: 12-07-2023 End: 12-07-2023 [facility] Start: 06-15-2022 [facility] Start: 06-14-2022 [facility] Start: 06-13-2022 [facility] Start: 06-12-2022 [facility] Start: 06-11-2022 End: 06-11-2022 [facility] Start: 06-10-2022 Hospital admission [facility] Start: 06-10-2022 [facility] Start: 06-10-2022 [facility] Start: 06-09-2022 [facility] Start: 04-21-2022 Bacteria identified in Urine by Culture Urine Culture [facility] Start: 04-10-2022 Bacteria identified in Urine by Culture Urine Culture [facility] Start: 05-16-2020 End: 05-16-2020 Office Visit 05/16/2020 Office Visit Bariatrics Rashard Olivera, [address] [place] [id number] Camille Linton Invasive Bariatric Surg Start: 05-06-2020 End: 05-06-2020 Hospital Encounter [facility] Comment on above: XI LAPAROSCOPIC ROBOTIC GASTRIC BYPASS R OUX-EN-Y, LIVER BIOPSY, EGD- GI UNIT SCHEDULED. Start: 05-02-2020 End: 05-01-2021 COVID-19 COVID-19 Lab Routine Pre-op testing Expected: 05/02/2020, Expires: 05/01/2021 [place] Comment on above: Expected: 05/02/2020, Expires: Start: 05-02-2020 End: 05-02-2020 Office Visit [facility] Invasive Bariatric Surg Start: 01-11-2020 TSH Qn TSH testing [place] Start: 12-18-2019 Influenza vaccination Flu vaccine (#1) [place] Start: 2016 Screening for malignant neoplasm of cervix [facility] Start: 2014 DTaP,Tdap and Td Vaccines (1 - Tdap) DTaP,Tdap and Td Vaccines (1 - Tdap) [facility] Start: 2014 DTaP/Tdap/Td vaccine (1 - Tdap) DTaP/Tdap/Td vaccine (1 - Tdap) [place] Start: 2014 Hepatitis B Vaccine (1 of 3 - 19+ 3-dose series) Hepatitis B Vaccine (1 of 3 - 19+ 3-dose series) [facility] Start: 2014 Hepatitis B Vaccines (1 of 3 - 19+ 3-dose series) Hepatitis B Vaccines (1 of 3 - 19+ 3-dose series) [facility] Start: 2014 Urine microalbumin profile DTaP,Tdap,Td Vaccine (1 - Tdap) [facility] Start: 2013 Adult BMI Screening Adult BMI Screening [facility] Start: 2013 Anxiety Screening Anxiety Screening [facility] Start: 2013 Depression Screening Depression Screening [facility] Start: 2013 Hepatitis C screening Hepatitis C Screening [facility] Start: 2013 HIV screening HIV Screening [facility] Start: 2010 HIV screening HIV screen [place] Start: 2008 Varicella vaccination Varicella Vaccines (1 of 2 - 13+ 2-dose series) [facility] Start: 2007 Depression Screening Depression Screening [facility] Start: 2007 Tobacco Screening Tobacco Screening [facility] Start: 2006 HPV vaccine (1 - 2-dose series) HPV vaccine (1 - 2-dose series) [place] Start: 1996 MMR Vaccines (1 of 1 - Standard series) MMR Vaccines (1 of 1 - Standard series) [facility] Start: 1996 Varicella vaccine (1 of 2 - 2-dose childhood series) Varicella vaccine (1 of 2 - 2-dose childhood series) [place] Start: 1995 Hepatitis C screening Hepatitis C screen [place] Start: 1995 HIV screening HIV Screening [facility] Start: 1995 Lipid panel Lipid Panel [facility] Start: 1995 Yearly Adult Physical Yearly Adult Physical [facility] aPTT in Platelet poo r plasma by Coagulation assay [facility] Bacteria identified in Genital specimen by Aerobe culture [facility] Bacteria identified in Urine by Culture Urine culture Microbiology Routine Missed menses Ordered: 09/20/2024 [facility] Comment on above: Ordered: 09/20/2024 Calcitriol [Mass/vol ume] in Serum or Plasma [facility] CBC W Auto Different ial panel - Blood CBC and differential Lab Routine Missed menses , unspecified gestational age Ordered: 09/20/2024 [facility] Comment on above: Ordered: 09/20/2024 CHLAMYDIA TRACHOMATI S (GENITO/STI) CHLAMYDIA TRACHOMATIS (GENITO/STI) Lab Routine Exposure to STD Ordered: 11/20/2024 [facility] Comment on above: Ordered: 11/20/2024 Continuous pulse oximetry Pulse oximetry, continuous Respiratory Care Routine Every 4hr until discontinued [facility] 05/06[facility]2020 [facility] Comment on above: Every 4hr until discontinued starting CT Abdomen and Pelvi s WO and W contrast IV [facility] Cytology Cervical or vaginal smear or scraping study Pap Smear Pathology and Cytology Routine Well woman exam with routine gynecological exam Ordered: 02/20/2024 [facility] Work Phone: Comment on above: Ordered: 02/20/2024 Electromyography [facility] F5 gene mutations fo und [Identifier] in Blood or Tissue by Molecular genetics method Nominal [facility] Factor VIII: C assay [facility] Glucose measurement estimated from glycated hemoglobin [facility] Hemoglobin A1c/Hemoglobin.total in Blood [facility] Hemoglobin A1c/Hemoglobin.total in Blood Hemoglobin A1c Lab Routine Missed menses , unspecified gestational age Ordered: 09/20/2024 [facility] Comment on above: Ordered: 09/20/2024 Hepatitis B virus priest rface Ag [Presence] in Serum or Plasma by Immunoassay Hepatitis B surface antigen Lab Routine Missed menses , unspecified gestational age Ordered: 09/20/2024 [facility] Comment on above: Ordered: 09/20/2024 Hepatitis C virus Ab [Presence] in Serum or Plasma by Immunoassay Hepatitis C antibody Lab Routine Missed menses , unspecified gestational age Ordered: 09/20/2024 [facility] Comment on above: Ordered: 09/20/2024 HIV-1/HIV-2 antigen/antibody combination immunoassay HIV-1 and HIV-2 antibodies Lab Routine Missed menses , unspecified gestational age Ordered: 09/20/2024 [facility] Comment on above: Ordered: 09/20/2024 INR in Platelet poor plasma by Coagulation assay [facility] Mullerian inhibiting substance [Mass/volume] in Serum or Plasma [facility] Nebulizer therapy HHN Treatment Respiratory Care Routine TID until discontinued starting 05/06/2020 [facility] Comment on above: TID until discontinued starting 05/06/19 21 Neisseria gonorrhoea e DNA [Presence] in Unspecified specimen by AC with probe detection Neisseria gonorrhea DNA probe, direct Lab Routine Exposure to STD Ordered: 11/20/2024 [facility] Comment on above: Ordered: 11/20/2024 Oxygen therapy [Mini [facility] Data Set] Initiate Oxygen Therapy Protocol Respiratory Care Routine Daily until discontinued starting 05/06/2020 [facility] Comment on above: Daily until discontinued starting 2020 Patient Education [facility] Work Phone: Patient referral [facility] Work Phone: Reagin Ab [Presence] in Serum by RPR RPR Lab Routine Missed menses , unspecified gestational age Ordered: 09/20/2024 [facility] Comment on above: Ordered: 09/20/2024 Rubella antibody, IgG Rubella an tibody, IgG Lab Routine Missed menses , unspecified gestational age Ordered: 09/20/2024 [facility] Comment on above: Ordered: 09/20/2024 Spirometry panel Incentive marti metry Respiratory Care Routine Every 2hr while awake until discontinued starting 05/06/2020 [facility] Comment on above: Every 2hr while awake until discontinued starting 05/06/2020 SURESWAB(R) ADVANCED VAGINITIS PLUS, TMA SURESWAB(R) ADVANCED VAGINITIS PLUS, TMA Pathology and Cytology Routine Exposure to STD Ordered: 11/20/2024 [facility] [employer] Work Phone: Comment on above: Ordered: 11/20/2024 Surgical Pathology Surgical Path ology Lab Routine Release Upon Ordering for 1 Occurrences starting 05/06/2020 [facility] Comment on above: Release Upon Ordering for 1 Occurrences starting 05/06/2020 End: 11-20-2025 Thyrotropin [Units/volume] in Serum or Plasma TSH Lab Routine Thyroid disease every 4 weeks for 6 Occurrences starting 11/20/2024 until 11/20/2025 [facility] Comment on above: every 4 weeks for 6 Occurrences starting 11/20/2024 until 11/20/2025 von Willebrand facto r (vWf) Ag [Units/volume] in Platelet poor plasma [facility] von Willebrand facto r (vWf) multimers in Platelet poor plasma by Immunoblot [facility] von Willebrand facto r (vWf) ristocetin cofactor actual/normal in Platelet poor plasma by Platelet aggregation [facility] Immunizations Immunization Date Immunization Notes Care Provider Fa cility 12-25-2022 tetanus toxoid, reduced diphtheria toxoid, and acellular pertussis vaccine, adsorbed Darleen Sinclair MD Work Phone: [facility] 08-19-2020 COVID-19 mRNA-1273 (Moderna) MELY Ford Work Phone: [facility] 07-22-2020 COVID-19 mRNA-1273 (Moderna) MELY Ford Work Phone: [facility] Payers Date Payer Category Payer Self-pay [id number] 2022 Medicaid [id number] 2022 Medicaid [id number] 2020 Unknown [id number] 2015 Unknown [id number] .[id number] 1995 Unknown [id number] 2.16.840.1.288726.3.579.2.176 1995 Unknown [id number] 2.16840.1.767674.3.579.2.175 1995 Unknown [id number] 2.16.840.1.712341.3.579.2.175 1995 Unknown [id number] 2.16.840.1.931054.3.579.2.175 1995 Unknown [id number] 2.16.840.1.666541.3.579.2.175 1995 Unknown [id number] 2.16.840.1.586714.3.579.2.124 4 1995 Unknown [id number] 2.16.840.1.131317.3.579.2.718 1995 Unknown [id number] 2.16840.1.467939.3.579.2. 1995 Unknown [id number] 2.16840.1.894803.3.579.2. 1995 Unknown [id number] 2.840.1.447756.3.579.2. 1995 Unknown [id number] 2.16840.1.942404.3.579.2. 1995 Unknown [id number] 2.840.1.363213.3.579.2. 1995 Unknown [id number] 2.840.1.230091.3.579.2. 1995 Unknown [id number] 2.840.1.583505.3.579.2.125 9 1995 Unknown [id number] 2.840.1.327267.3.579.2.125 9 1995 Unknown [id number] 2.840.1.531165.3.579.2.125 9 1995 Unknown [id number] 2.840.1.718621.3.579.2.125 9 1995 Unknown [id number] 2840.1.531587.3.579.2.125 9 1995 Unknown [id number] 2.16840.1.298169.3.579.2.125 9 1995 Unknown [id number] 2.16840.1.687967.3.579.2.125 9 Private Health Insurance [facility] [id number] Unknown [id number] Unknown [id number] 2840.1.386029.3.579.2.531 Unknown [id number] 2.16.840.1.325623.3.579.2.531 Unknown [id number] 2.16.840.1.002989.3.579.2.531 Social History Date Type Detail Facility Start: 04-22-2020 End: 06-08-2023 Tobacco smoking status NHIS Never smoker [place] Start: 04-22-2020 End: 11-28-2023 Tobacco use and exposure Never used [email or web address] [email or web address] [place] Start: 04-22-2020 End: 05-02-2020 Alcohol intake Current non-drinker of alcohol (finding) [place], [place] Start: 1995 Sex Assigned At Not on file [place] Exposure to SARS-CoV-2 (event) Not sure [place] Tobacco smoking status Never [facility] Start: 05-20-2020 End: 11-28-2023 Sex Assigned At Female [employer] Other Start: 1995 Sex Assigned At Female [facility] Start: 06-10-2022 Tobacco smoking status VAIS Current some day smoker [facility] Start: 11-28-2023 End: 12-07-2023 Tobacco smoking status NHIS Smoker (finding) [facility] Start: 11-28-2023 End: 10-26-2024 Tobacco smoking status VAIS Smokes tobacco daily [facility] History of tobacco use Cigarette Smoker [facility] Start: 05-20-2020 End: 11-28-2023 Cigarettes smoked current (pack per day) - Reported 0.5 [facility] Start: 11-28-2023 End: 11-20-2024 Alcoholic beverage intake Ex-drinker (finding) [facility] Start: 01-10-2023 Alcohol Comment caffeine: 1-2 cups per day tea [facility] Start: 01-19-2023 Gender identity Identifies as female gender (finding) [facility] Start: 05-20-2020 End: 02-27-2024 Sex Female (finding) [facility] Tobacco smoking status VAIS Tobacco smoking consumption unknown [facility] Start: 08-01-2023 [facility] Start: 10-18-2024 Tobacco smoking status NHIS Ex-smoker (finding) [facility] NEGATED: Highlighted row [facility] Medical Equipment Procedure Code Equipment Code [...] FDA Start: 10-15-2019 Tendon/ligament bone anchor, non-bioabsorbable [id number] FDA Start: 12-07-2023 Tendon/ligament bone anchor, non-bioabsorbable ()[id number] FDA Start: 12-07-2023 Tendon/ligament bone anchor, non-bioabsorbable ()[id number] FDA Start: 12-07-2023 Tendon/ligament bone anchor, non-bioabsorbable ()[id number] FDA Start: 12-07-2023 Goals Date Patient Goal Desired Activity /State Personal health goal Functional Status Date Assessment Result Facility 06-11-2022 Functional status Patient at Baseline [facility] Work Phone: 06-10-2022 Functional status Patient at Baseline [facility] Work Phone: Mental Status Date Assessment Result Facility 06-11-2022 Cognitive function Cognitive Sta tus Patient at Baseline [facility] Work Phone: 06-10-2022 Cognitive function Cognitive Sta tus Patient at Baseline [facility] Work Phone: Clinical Notes 07-16-2021 to 11-20-2024 Alana Valverde LPN - 11/20/2024 8:40 AM Cedric Duenas NP - 10/22/2024 11:20 AM Haim Asif MA - 09/20/2024 2:30 PM Charisse Etienne APRN.TRAVEL REGISTERED NURSE NICU - 09/03/2024 5:39 PM EDTPatient Instructions Note Date & Type Note Facility 11-20-2024 History of Presen t illness Narrative Reason [...] nursing note reviewed. Exam conducted with a call or contact centre manager present. Vitals: Estimated body mass index is 35.7 kg/m as calculated from the following: Height as of 08/22/24: 5' 11 . Weight as of this encounter: 256 lb. BP: 114/64 No LMP recorded. Patient is . ASSESSMENT & PLAN ICD-10-CM 1. Well woman exam with routine gynecological exam Z01.419 2. Exposure to STD Z20.2 SURESWAB(R) ADVANCED VAGINITIS PLUS, TMA CHLAMYDIA TRACHOMATIS (GENITO/STI) Neisseria gonorrhea DNA probe, direct 3. Second trimester ([facility]) Z34.92 POCT urinalysis dipstick manually resulted 4. 18 weeks gestation of ([facility]) Z3A.18 5. Need for maternal serum alpha-protein (MSAFP) screening ([facility]) Z36.1 Alpha fetoprotein, maternal Alpha fetoprotein, maternal 6. Screening, , for anatomic survey ([facility]) Z36.89 US OB 14+ weeks anatomy scan [...] Les Martinez DO documented in this encounter [facility] 10-22-2024 History of Presen t illness Narrative [...] nursing note reviewed. Exam conducted with a call or contact centre manager present. Vitals: Estimated body mass index is 31.24 kg/m as calculated from the following: Height as of 08/22/24: 5' 11 . Weight as of this encounter: 224 lb. BP: 110/62 No LMP recorded. Patient is . ASSESSMENT & PLAN ICD-10-CM 1. 13 weeks gestation of ([facility]) Z3A.13 POCT urinalysis dipstick manually resulted 2. Second trimester ([facility]) Z34.92 POCT urinalysis dipstick manually resulted 3. Thyroid disease E07.9 4. H/O gastric sleeve Z90.3 5. H/O iron deficiency anemia Z86.2 6. resulting from in vitro fertilization in first trimester ([facility]) O09.811 Return OB: Patient presents today for [...] of gastric sleeve will make referral to M. Documented by Mima Duenas NP on behalf of: Les Martinez DO documented in this encounter [facility] 10-18-2024 Radiology Diagnostic study note [facility] [place] [address] [place] [address] Ultrasound Report Signed Patient: Jaz Sanders MR#: [id number] : 1995 Acct:[id number] Age/Sex: 29 / F ADM Date: 5 Loc: ER Room: Type: [facility] ER Attending Dr: Ordering Provider: Kassidy Arriaza [...] Jr., DTracy 10/18/2024 2:21 PM Dictation Location: [place] [address] Tech: Natalie Haji Transcribed By: MAITE 10/18/24 1421 Dictated By: Sravan Dickinson Jr, DO 10/18/24 1419 Signed By: 10/18/24 1421 [facility] 09-20-2024 History of Presen t illness [...] screen, urine; Future Nurse Note: Patient declined [place] at this time. Patient is an IVF from [facility]. OB Intake: Patient presents today for first OB visit. Patients history has been reviewed in great detail including any potential risks. Patient signed consent forms and patient desires testing in both trimesters. Patient currently has no complaints and has been advised to drink 6-8 glasses of water a day, eat no raw or undercooked meat, and stay away from [facility]. Patient has also been advised to [...] Marsha Asif MA documented in this encounter [facility] 09-05-2024 Note HNO ID: [id number] Author: SHELLY HERNANDEZ APRN.JARROD Service: ? Author Type: Nurse Practitioner Type: Procedures Filed: 09/05/2024 22:45 Note Text: WHI JAMEL IUI PROCEDURE NOTE Date: 07/31/2024 Primary Proceduralist: Shelly Hernandez APRN.TRAVEL REGISTERED NURSE NICU Consents and Labels Consent Signed: Informed Consent obtained and on the chart Labels Verified With Patient: Yes Indications: Jaz Sanders, is a 29 year old female here today for intrauterine insemination. IUI # 3. Cycle Day: Last menstrual period: 07/19/2024 Armstrong Protocol: UNIVERSAL PROTOCOL / SAFETY CHECKLIST Procedure [...] 2024 5:39 PM documented in this encounter [facility] 09-03-2024 Note HNO ID: [id number] Author: CHARISSE WEAVER APRN.CNP Service: ? Author [...] Weaver APRN.CNP September 03, 2024 5:39 PM [facility] 08-30-2024 Note HNO ID: [id number] Author: MIKEY TORRES MD Service: ? Author Type: Physician Type: Progress Notes Filed: 08/30/2024 16:36 Note Text: Viable ratliff IUP Size equal Date. Plan: patient to follow up with her ob for care. Stacy Kahn MD [facility] 08-30-2024 History of Presen t illness Narrative Viable ratliff IUP Size equal Date. Plan: patient to follow up with her ob for care. Stacy Kahn MD Jaz Sanders is here today for [...] 63.6 08/15 - 160.6 / - 362.7 Dating: Currently 6w0d based off of IUI date. By Ultrasound, measuring 5w6d FHR: 100 Plan: repeat scan next week as scheduled Shelly Hernandez APRN.CNP documented in this encounter [facility] 08-28-2024 Note HNO ID: [id number] Author: SHELLY HERNANDEZ APRN.TRAVEL REGISTERED NURSE NICU Service: ? Author Type: Nurse Practitioner Type: Progress Notes Filed: 08/30/2024 16:36 Note Text: Jaz Sanders is here today for an early scan due to pain. This is her 1st scan. History of ectopic: No History of SAB: No History of chemical - possible - not verified History of pelvic/abdominal surgeries: Yes - gall bladder and gastric sleeve LMP 4/3, natural cycle, date of LH surge: 07/30, IUI: 07/31 Latest Ref Rng 04/02/2024 ABO A Rh(D) Positive Antibody Screen Negative Type+Scr Expiration 04/05/2024 23:59 Varicella Zoster IgG, Qual Positive Positive Rubella IgG, Qual Positive Positive hCG levels: 08/13 - 63.6 08/15 - 160.6 5/ - 362.7 Dating: Currently 6w0d based off of IUI date. By Ultrasound, measuring 5w6d FHR: 100 Plan: repeat scan next week as scheduled Shelly Hernandez APRN.TRAVEL REGISTERED NURSE NICU [facility] 08-24-2024 Telephone [...] - gall bladder and gastric sleeve LMP 4/3, natural cycle, date of LH surge: 07/30, IUI: 07/31 Latest Ref Rng 04/02/2024 ABO A Rh(D) Positive Antibody Screen Negative Type+Scr Expiration 04/05/2024 23:59 Varicella Zoster IgG, Qual Positive Positive Rubella IgG, Qual Positive Positive hCG levels: 08/13 - 63.6 08/15 - 160.6 5/ - 362.7 Plan: discussed pro's/con's of repeat hcg level versus ultrasound Ultrasound will allow us to assess the pelvis and make sure is appropriate for dates. Please schedule the patient for the following- Location: [facility] Provider: nurse Visit type: scan Reason for visit/appointment notes: scan Date: 08/28 Time (requested): 1110 If slot is full, please schedule the closest open slot. Call to patient needed: no [facility] 08-24-2024 Miscellaneous Notes spoke with Jaz, she [...] schedule the patient for the following- Location: [facility] Provider: nurse Visit type: scan Reason for visit/appointment notes: scan Date: 08/28 Time (requested): 1110 If slot is full, please schedule the closest open slot. Call to patient needed: no Name: Jaz Sanders called today. : 1995 (home) [phone] (cell) Reason for call: pt called today informing the nurse she has been experiencing pain of level 4 from 1-10. Pt has been experiencing pain for 2 day. 5 weeks today. The patients preferred pharmacy has been captured for this encounter? [facility] documented in this encounter [facility] 08-24-2024 Telephone encounter Note See 08/23/24 LIBBY Ward RN August 24, 2024 1:58 PM [facility] 08-24-2024 Miscellaneous Notes See 08/23/24 LIBBY Ward RN August 24, 2024 1:58 PM Pt would like a call back documented in this encounter [facility] 08-24-2024 Telephone encounter Note Pt would like a call back [facility] 08-23-2024 Telephone encounter Note Name: Jaz Sanders called today. : 1995 (home) [phone] (cell) Reason for call: pt called today informing the nurse she has been experiencing pain of level 4 from 1-10. Pt has been experiencing pain for 2 day. 5 weeks today. The patients preferred pharmacy has been captured for this encounter? [facility] 08-23-2024 Telephone encounter Note See 08/20 Distance health visit Marianna Ward RN August 23, 2024 8:53 AM [facility] 08-23-2024 Miscellaneous Notes See 08/20 Distance health visit Marianna Ward RN August 23, 2024 8:53 AM documented in this encounter [facility] 08-22-2024 History of Presen t illness Narrative [...] levothyroxine 50 mcg daily, administered in the appliance technician on an empty stomach. There have been [...] (0.76-1.46), but she is in treatment plan, Femara, for fertility. HPI : 09/2022 New patient [...] year (around 08/22/2025). documented in this encounter [facility] 08-20-2024 Note HNO ID: [id number] Author: SHELLY HERNANDEZ APRN.TRAVEL REGISTERED NURSE NICU Service: ? Author Type: Nurse Practitioner Type: [...] visit. Either the patient or their legal risk control field representative has been informed of the risks [...] providers Schedule with OB: 09/13 Shelly Hernandez APRN.TRAVEL REGISTERED NURSE NICU August 20, 2024 8:33 AM Please schedule the patient for the following- Location: [facility] Provider: nurse Visit type: Reason for visit/appointment notes: scan Date: 09/03 Time (requested): 1040 If slot is full, please schedule the closest open slot. Call to patient needed: no I spent a total of 30 minutes on the date of the service which included preparing to see the patient, [id number] patient care, completing clinical documentation, obtaining and/or [...] visit. Either the patient or their legal risk control field representative has been informed of the risks [...] from assisted reproductive technology in first trimester ([facility]) O09.811 OBSTETRIC ULTRASOUND WHI Plan: further labwork needed: no scan scheduled: 09/03 medications to discontinue: patient to discuss status with her providers Schedule with OB: 09/13 Shelly Hernandez APRN.TRAVEL REGISTERED NURSE NICU August 20, 2024 8:33 AM Please schedule the patient for the following- Location: [place] Provider: nurse Visit type: Reason for visit/appointment notes: scan Date: 09/03 Time (requested): 1040 If slot is full, please schedule the closest open slot. Call to patient needed: no I spent a total of 30 minutes on the date of the service which included preparing to see the patient, [id number] patient care, completing clinical documentation, obtaining and/or [...] missed in proofreading. documented in this encounter [facility] 08-16-2024 Telephone encounter Note Called patient back to phone number listed in Epic-no answer. Lm for patient to look out for Mychart message. Daniel Hanna APRN.CNP August 16, 2024 5:15 PM [facility] 08-16-2024 Miscellaneous Notes Called patient back to phone number listed in Epic-no answer. Lm for patient to look out for Mychart message. Daniel Hanna APRN.CNP August 16, 2024 5:15 PM Name: Jaz Sanders called today. : 1995 (home) [phone] (cell) Reason for call: pt called that she got positive test, she has been having having cramping since last night , it happens every hours for couple minutes. The patients preferred pharmacy has been captured for this encounter? yes [facility] documented in this encounter [facility] 08-16-2024 Telephone encounter Note Name: Jaz Sanders called today. : 1995 (home) [phone] (cell) Reason for call: pt called that she got positive test, she has been having having cramping since last night , it happens every hours for couple minutes. The patients preferred pharmacy has been captured for this encounter? yes Angella Yisel [facility] 08-15-2024 Telephone encounter Note Pt is preg and wants to know if she can take benadryl due to her having hives [facility] 08-15-2024 Miscellaneous Notes Pt is preg and wants to know if she can take benadryl due to her having hives documented in this encounter [facility] 07-31-2024 Note HNO ID: [id number] Author: DOMINGUEZ BARRY, ? Service: ? Author Type: Case Management Associate Type: Progress Notes Filed: 09/05/2024 22:45 Note Text: IUI Cryobio Donor # [id number] Pre: frozen washed specimen Post: 82 M/ml, 67% Insem # 27.5 million [facility] 07-31-2024 Note HNO ID: [id number] Author: DOMINGUEZ BARRY, ? Service: ? Author Type: Case Management Associate Type: Progress Notes Filed: 07/31/2024 15:26 Note Text: Thaw for IUI. Dominguez Barry [facility] 07-31-2024 History of Presen t illness Narrative Thaw for IUI. Dominguez Barry documented in this encounter [facility] 07-31-2024 Note HNO ID: [id number] Author: DOMINGUEZ BARRY, ? Service: ? Author Type: Case Management Associate Type: Progress Notes Filed: 09/05/2024 22:45 Note Text: IUI specimen released to provider Dominguez Barry July 31, 2024 3:24 PM [facility] 07-31-2024 Note HNO ID: [id number] Author: MUSTAPHA TELLO MA Service: ? Author Type: Customer Quality Specialist Type: Progress Notes Filed: 07/31/2024 15:12 Note Text: Patient verified by full name and date of . Jaz Sanders is here today for an IUI. LMP: 07/19/2024 Natural cycle IUI Timed With: Ovulation Predictor Kit , Date: 07/30/2024 Drum Tester offered: Patient declines Mustapha Tello MA July 31, 2024 3:12 PM [facility] 07-30-2024 Telephone encounter Note patient's OPK today was dark but not positive Plan: test again tomorrow. if darker, schedule IUI on Tuesday if clinic lead than today, schedule IUI the same day Shelly Hernandez APRN.CNP July 30, 2024 6:00 PM [facility] 07-30-2024 Miscellaneous Notes patient's OPK today was dark but not positive Plan: test again tomorrow. if darker, schedule IUI on Tuesday if clinic lead than today, schedule IUI the same day Shelly Hernandez APRN.CNP July 30, 2024 6:00 PM N- ivf Pt has questions regarding IUI documented in this encounter [facility] 07-30-2024 Telephone encounter Note N- ivf Pt has questions regarding IUI [facility] 07-08-2024 Note HNO ID: [id number] Author: NICHELLE GONZALEZ, ? Service: ? Author Type: Case Management Associate Type: Progress Notes Filed: 07/19/2024 07:50 Note Text: IUI Cryobio #[id number] Washed frozen specimen Post: 31 m/ml, 77% Insem#: 10.8 million [facility] 07-08-2024 History of Presen t illness Narrative IUI Cryobio #[id number] Washed frozen specimen Post: 31 m/ml, 77% Insem#: 10.8 million IUI specimen released to provider Nichelle Gonzalez July 07, 2024 10:10 AM documented in this encounter [facility] 07-07-2024 Note HNO ID: [id number] Author: NICHELLE GONZALEZ, ? Service: ? Author Type: Case Management Associate Type: Progress Notes Filed: 07/19/2024 07:50 Note Text: IUI specimen released to provider Nichelle Gonzalez July 07, 2024 10:10 AM [facility] 07-07-2024 Note HNO ID: [id number] Author: MIKEY TORRES MD Service: ? Author [...] Cycle Day: 14 Last menstrual period: 06/24/2024 Armstrong Protocol: UNIVERSAL PROTOCOL / SAFETY CHECKLIST Procedure [...] by the primary surgeon/proceduralist with assistance. Stacy Kahn MD [facility] 07-07-2024 [...] Cycle Day: 14 Last menstrual period: 06/24/2024 Armstrong Protocol: UNIVERSAL PROTOCOL / SAFETY CHECKLIST Procedure [...] by the primary surgeon/proceduralist with assistance. Stacy Kahn MD [facility] 07-07-2024 Procedure note WHI JAMEL IUI PROCEDURE NOTE Date: 07/07/2024 Primary Proceduralist: Nakia Duran MD Consents and Labels Consent Signed: Informed Consent obtained and on the chart Labels Verified With Patient: Yes Indications: Jaz Sanders, is a 29 year old No obstetric history on file. female here today for intrauterine insemination. IUI # 2. Cycle Day: 14 Last menstrual period: 06/24/2024 Armstrong Protocol: UNIVERSAL PROTOCOL / SAFETY CHECKLIST Procedure [...] by the primary surgeon/proceduralist with assistance. Stacy Kahn MD documented in this encounter [facility] 07-07-2024 Note HNO ID: [id number] Author: NICHELLE GONZALEZ, ? Service: ? Author Type: Case Management Associate Type: Progress Notes Filed: 07/07/2024 09:41 Note Text: Thaw for IUI Nichelle Gonzalez [facility] 07-07-2024 History of Presen t illness Narrative Thaw for IUI Nichelle Gonzalez documented in this encounter [facility] 07-06-2024 Telephone encounter Note Called the pt back. Pt had an US done 07/04/24--Possible small 4 mm intracervical canal polyp. No other abnormal findings. Advised to move on with IUI tomorrow. FYI: Dr. Guy and Silvia ORTHOTIST PROSTHETIST. Please let me know if any different instructions. Becki Isaacs PA-C July 06, 2024 3:26 PM [facility] 07-06-2024 Miscellaneous Notes Called the pt back. Pt had an US done 07/04/24--Possible small 4 mm intracervical canal polyp. No other abnormal findings. Advised to move on with IUI tomorrow. FYI: Dr. Guy and Silvia, ORTHOTIST PROSTHETIST. Please let me know if any different instructions. Becki Isaacs PA-C July 06, 2024 3:26 PM Patient states she is calling back unsure about if she is okay to proceed with iui tomorrow. Please call patient. documented in this encounter [facility] 07-06-2024 Telephone encounter Note Patient states she is calling back unsure about if she is okay to proceed with iui tomorrow. Please call patient. [facility] 07-06-2024 Telephone encounter Note See other TE for 07/04 Marianna Ward RN July 06, 2024 11:17 AM [facility] 07-06-2024 Miscellaneous Notes See other TE for 07/04 Marianna Ward RN July 06, 2024 11:17 AM On day 11 now, inquiring about if okay to proceed with iui with cervical polyp. Patient believes it will be tomorrow or Tuesday for iui- inquiring if polyp needs to be removed first. documented in this encounter [facility] 07-05-2024 Telephone encounter Note On day 11 now, inquiring about if okay to proceed with iui with cervical polyp. Patient believes it will be tomorrow or Tuesday for iui- inquiring if polyp needs to be removed first. [facility] 07-04-2024 Telephone encounter Note Spoke with Jaz regarding multiple questions. #1 - ultrasound results LMP 2/10, natural cycle, LH surge 2/21 -IUI 2/22 - cervix bled during IUI, [...] Hernandez APRN.CNP July 04, 2024 7:30 PM [facility] 07-04-2024 Miscellaneous Notes Spoke with Jaz regarding multiple questions. #1 - ultrasound results LMP 2/10, natural cycle, LH surge 2/21 -IUI 2/22 - cervix bled during IUI, [...] 2024 7:30 PM documented in this encounter [facility] 07-04-2024 Note HNO ID: [id number] Author: IGNACIO GUY MD Service: ? Author Type: Physician Type: Progress Notes Filed: 07/04/2024 16:27 Note Text: 1 [facility] 07-04-2024 History of Presen t illness Narrative 1 documented in this encounter [facility] 06-09-2024 Note HNO ID: [id number] Author: IGNACIO GUY MD Service: ? Author [...] Cycle Day: 13 Last menstrual period: 05/28/2024 Armstrong Protocol: UNIVERSAL PROTOCOL / SAFETY CHECKLIST Procedure [...] was discussed with the patient or authorized risk control field representative. The patient or authorized risk control field representative has agreed to proceed with the sensitive examination. (Sensitive examination includes inspection and/or palpation of the breasts, pelvis, prostate and anorectal regions) Patient declined call or contact centre manager. Vidhi Sheldon MD IUI IUI Date: 06/09/24 [...] stopped. Will get pelivc scan here at [facility] if not with this IUI prior pt [...] Cycle Day: 13 Last menstrual period: 05/28/2024 Armstrong Protocol: UNIVERSAL PROTOCOL / SAFETY CHECKLIST Procedure [...] was discussed with the patient or authorized risk control field representative. The patient or authorized risk control field representative has agreed to proceed with the sensitive examination. (Sensitive examination includes inspection and/or palpation of the breasts, pelvis, prostate and anorectal regions) Patient declined call or contact centre manager. Vidhi Sheldon MD IUI IUI Date: 06/09/24 [...] stopped. Will get pelivc scan here at [facility] if not with this IUI prior pt proceeding with another attmept at IUI. Ignacio Guy MD June 09, 2024 12:30 PM SIGNATURE: Vidhi Sheldon MD PATIENT NAME: Jaz Sanders DATE: June 09, 2024 TIME: 12:01 PM [facility] Work Phone: 06-09-2024 Procedure note WHI JAMEL IUI PROCEDURE NOTE Date: 06/09/2024 Primary Proceduralist: Vidhi Sheldon MD Consents and Labels Consent Signed: Informed Consent obtained and on the chart Labels Verified With Patient: Yes Indications: Jaz Sanders, is a 29 year old No obstetric history on file. female here today for intrauterine insemination. IUI # 1. Cycle Day: 13 Last menstrual period: 05/28/2024 Armstrong Protocol: UNIVERSAL PROTOCOL / SAFETY CHECKLIST Procedure [...] was discussed with the patient or authorized risk control field representative. The patient or authorized risk control field representative has agreed to proceed with the sensitive examination. (Sensitive examination includes inspection and/or palpation of the breasts, pelvis, prostate and anorectal regions) Patient declined call or contact centre manager. Vidhi Sheldon MD IUI IUI Date: 06/09/24 [...] stopped. Will get pelivc scan here at [facility] if not with this IUI prior pt proceeding with another attmept at IUI. Ignacio Guy MD June 09, 2024 12:30 PM SIGNATURE: Vidhi Sheldon MD PATIENT NAME: Jaz Sanders DATE: June 09, 2024 TIME: 12:01 PM documented in this encounter [facility] 06-09-2024 Note HNO ID: [id number] Author: NICHELLE GONZALEZ, ? Service: ? Author Type: Case Management Associate Type: Progress Notes Filed: 06/09/2024 12:30 Note Text: IUI Cryobio #: [id number] Washed frozen sample Post: 42 m/ml, 74% Insem#: 15.5 million [facility] 06-09-2024 History of Presen t illness Narrative IUI Cryobio #: [id number] Washed frozen sample Post: 42 m/ml, 74% Insem#: 15.5 million IUI specimen released to provider Nichelle Gonzalez June 09, 2024 11:24 AM documented in this encounter [facility] 06-09-2024 Note HNO ID: [id number] Author: NICHELLE GONZALEZ, ? Service: ? Author Type: Case Management Associate Type: Progress Notes Filed: 06/09/2024 11:48 Note Text: Thaw for IUI Nichelle Gonzalez [facility] 06-09-2024 History of Presen t illness Narrative Thaw for IUI Nichelle Gonzalez documented in this encounter [facility] 06-09-2024 Note HNO ID: [id number] Author: NICHELLE GONZALEZ, ? Service: ? Author Type: Case Management Associate Type: Progress Notes Filed: 06/09/2024 12:30 Note Text: IUI specimen released to provider Nichelle Gonzalez June 09, 2024 11:24 AM [facility] 05-09-2024 Instructions Shelly Hernandez, SOURCING SPECIALIST.TRAVEL REGISTERED NURSE NICU - 05/09/2024 9:08 AM EST Images from the original note were not included. [facility] ENDOCRIN[facility] INFERTILITY DONOR SPERM HANDOUT Donor Sperm Checklist: Complete Next Steps: Progesterone blood test 6-8 days after your LH surge - please let me know the test result when you get it. IUI Procedure consent form - sent to you via [employer] today. Please sign when you can. Order sperm Financial Clearance - I sent your chart to the supervisor front today. Treatment plan: Natural cycle/IUI x 3 cycles. Please schedule a follow up visit with Dr. Guy if you are not after 3 cycles. Sperm Ordering Instructions We need 1 vial per cycle. You will likely need 3-6 vials to establish a . You are welcome to buy more than one and store with the [facility]. Mailing address: Attention: Nichelle Gonzalez [address] [place] [address], [address] [place] [address] Storage at the [facility] is available. Fees are yearly and only start once you are not actively trying. Please ask the financial team ([phone]) for current cost information. Donor Insemination Scheduling Instructions Please call during the first business day of your menstrual cycle to let the supervisor front know you will be testing and doing [...] please call the office to discuss. Location [facility] [id number] [place] [address], [address] [place] [address] Available every day, including weekends and holidays (except [place] and New Years.) Weekday IUI scheduling The day you get your LH surge, please call [phone] between 8:00am - 12:00pm to schedule your insemination for the next day. If you call after 12pm, we may not be able to schedule your appointment. IUI s are done by appointment only. You will make 2 appointments -an arrival time and a procedure time. Sheldon: [id number] [place] [address], [address] [place] [address] Available every day, including weekends and holidays (except [place] and New Years.) Available for IUI using fresh and frozen samples. Check in location for sperm wash and IUI: [address] [facility]. The sperm wash takes 60-90 minutes. Weekend/Holiday [...] want to do another IUI: Call the supervisor front to make sure you are financially cleared. Ask to speak to an SKYLAR to confirm your treatment plan. Important phone number: [phone] documented in this encounter [facility] 05-09-2024 Note HNO ID: [id number] Author: SHELLY HERNANDEZ APRN.CNP Service: ? Author [...] visit. Either the patient or their legal risk control field representative has been informed of the risks and benefits of -- and alternatives to -- treatment through a remote evaluation and consents to proceed with the evaluation remotely. Reason for visit: donor sperm follow up HPI Jaz () and Sravan present for donor sperm follow up Treatment plan: Natural cycle/IUI-D x 3 cycles Latest Ref Rn 04/02/2024 ABO A Rh(D) Positive Antibody Screen [...] cycle day 12 LMP 04/08, + OPK 04/19 - cycle day 12 Donor Search Criteria [...] negative donor is a carrier of: CFTR, [id number] Vial types available: IUI and ART Considerations [...] which included preparing to see the patient, [id number] patient care, completing clinical documentation, obtaining and/or [...] visit. Either the patient or their legal risk control field representative has been informed of the risks and benefits of -- and alternatives to -- treatment through a remote evaluation and consents to proceed with the evaluation remotely. Reason for visit: donor sperm follow up HPI Jaz () and Sravan present for donor sperm follow up Treatment plan: Natural cycle/IUI-D x 3 cycles Latest Ref Rn 04/02/2024 ABO A Rh(D) Positive Antibody Screen [...] cycle day 12 LMP 04/08, + OPK 04/19 - cycle day 12 Donor Search Criteria [...] negative donor is a carrier of: CFTR, [id number] Vial types available: IUI and ART Considerations when using this donor: IUI vial recommended Green light Plan: Donor Sperm episode/checklist updated Pending checklist items: Progesterone blood test, IUI consent, order sperm Confirmed best vial type to order: IUI Shelly Hernandez APRN.TRAVEL REGISTERED NURSE NICU May 09, 2024 8:12 AM I spent a total of 60 minutes on the date of the service which included preparing to see the patient, [id number] patient care, completing clinical documentation, obtaining and/or [...] missed in proofreading. documented in this encounter [facility] 05-02-2024 History of Presen t illness Narrative Psychosocial Consultation for Third Libertarian Reproduction Virtual visit with audio and visual equipment POS 10 No SI, Falls, Tobacco use On May 02, 2024, I met virtually with Jaz and Sravan Maria Eugenia. They were referred by Shelly Hernandez at [facility] for their required psychosocial consultation regarding third libertarian reproduction. Relevant History Jaz, 29, and Demetrius, 26, have been together for 8.5 years and for 6.5 years. 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 Demetrius also works at that [employer]. The couple has been trying to conceive [...] Eugenia's have already chosen a donor from [employer] in [place]. They chose this donor because he is CMV-, met their genetic screen (he does not have a history of bipolar disorder) and is phenotypically very similar to Demetrius. He is also listed as open ID. With regard to disclosure, the Sanders's are prepared and interested in disclosure to offspring and we reviewed the data on disclosure at a young age and discussed books that are for children to explain the concept. We also discussed the possibility of donor siblings and the lack of anonymity in third libertarian reproduction. They are very comfortable with disclosure. [...] the psychosocial issues inherent in this third libertarian reproductive option. documented in this encounter [facility] Work Phone: 03-11-2024 Note HNO ID: [id number] Author: SHELLY HERNANDEZ APRN.TRAVEL REGISTERED NURSE NICU Service: ? Author Type: Nurse Practitioner Type: [...] visit. Either the patient or their legal risk control field representative has been informed of the risks [...] Practice cycle Plan: Episode created.Reviewed checklist - Intern [place] message sent Practice cycle: recommended OPKs to test for ovulation and timing of IUIs, patient to call with +OPK, confirm ovulation with progesterone level Follow up once checklist is complete to discuss test results and next steps. Shelly Hernandez APRN.TRAVEL REGISTERED NURSE NICU March 11, 2024 10:42 PM I spent a total of 55 minutes on the date of the service which included preparing to see the patient, svmx-tg-xbcr patient care, completing clinical documentation, obtaining and/or [...] visit. Either the patient or their legal risk control field representative has been informed of the risks [...] Practice cycle Plan: Episode created.Reviewed checklist - Intern [place] message sent Practice cycle: recommended OPKs to test for ovulation and timing of IUIs, patient to call with +OPK, confirm ovulation with progesterone level Follow up once checklist is complete to discuss test results and next steps. Shelly Hernandez APRN.CNP March 11, 2024 10:42 PM I spent a total of 55 minutes on the date of the service which included preparing to see the patient, yjxf-jb-ogsc patient care, completing clinical documentation, obtaining and/or [...] missed in proofreading. documented in this encounter [facility] 03-09-2024 Instructions Shelly Hernandez APRN.CNP - 03/09/2024 [...] sensitive/urgent question, please call the office. ~Silvia GonzalezMELY dang.[facility] [phone] Donor Sperm Checklist Donor Sperm Labs Mandatory for Melvin Blood Type, HIV, Syphilis, Hepatitis B (Surface [...] Sravan must be present Amanda Gillespie MD ([place]ldon) - [phone] Rani Sims (Filomena Hernandez) - [phone] - virtual visit Saúl Destin, - virtual visit Margie Leonard, - virtual [...] to date). Please get scheduled with your cannoneer or pcp if needed. Practice with Ovulation Predictor Kit (OPK) First day of full flow is cycle day #1. Start using on ovulation predictor kit on cycle day 10. Use your OPK once a day, in the morning with your second urine of the day. Send in a Mezmerizhart message when you get a positive OPK. [...] Once your checklist is complete, please call [phone] to get scheduled for a donor sperm follow up appointment. Sperm Bank Website [place] [facility] https://www.[email or web address]/ [facility] https://cryobio.com/ [employer] [employer] https://www.cryosinternational. com/ [place] [facility] https://fairfaVitaldent.com/ [place] [facility] https://www.[place] Youboy Network.co m/ [facility] [place] https://www.thespermbankEvergage.or g/ [place] [facility] https://www.Andre Phillipe.Freight Farms m/ [facility] https://www.Eddingpharm ([place]).TheraCell/ If you would like to start browsing [...] is needed. Test: CPT Code: Blood type 38293 HIV 24236 CMV IgG 66775 CMV IgM 60913 Syphilis 05476 Hepatitis B Surface Ag 50168 Hepatitis B Core Ab, IgG and IgM 06201 Hepatitis C Ab 83574 Rubella 77983 Varicella 26773 Chlamydia 88925 Gonorrhea 55561 For the above tests, reference the diagnosis code of Z11.9 documented in this encounter [facility] 02-28-2024 Plan of care note Assessment- male [...] for three cycles. They will meet with ORTHOTIST PROSTHETIST to review the IUI checklist and sign consents. I spent a total of 45 minutes on the date of the service which included preparing to see the patient, pnxo-hv-kndo patient care, completing clinical documentation, counseling and educating the patient/family/caregiver, and ordering medications, tests, or procedures. 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 They will meet with ORTHOTIST PROSTHETIST to review the IUI checklist and sign consents. I spent a total of 45 minutes on the date of the service which included preparing to see the patient, xpio-kq-edjz patient care, completing clinical documentation, counseling and educating the patient/family/caregiver, and ordering medications, tests, or procedures. Ignacio Guy MD documented in this encounter [facility] 02-28-2024 Instructions Ignacio Guy MD - 02/28/2024 2:47 PM EST Dear Jaz Sanders Using donor sperm at the [facility] requires some set up (outlined below). Requirements to use donor sperm at the [facility]: Teaching with JAMEL SKYLAR - please call [phone] to schedule a donor sperm teach with [...] to help with the donor selection process. [employer] Carrier Screen is the test ordered. Processing time takes 2-3 weeks. If your insurance doesn't cover it, the self-pay de oliveira is ~$250. Counselor You and your partner/spouse (if applicable) must see a counselor for a donor sperm assessment. Amanda Gillespie MD ([place]) - [phone] Rani Sims ([facility]) - [phone] Doris Lama (Joice) - [phone] Consent form - must be signed by [...] Required Tests Test: CPT Code: Blood type 74334 HIV 49624 CMV IgG 15286 CMV IgM 71676 Syphilis 45242 Hepatitis B Surface Ag 39664 Hepatitis B Core Ab, IgG and IgM 86738 Hepatitis C Ab 96555 Rubella 39436 Varicella 79091 Chlamydia 41121 Gonorrhea 22719 For the above tests, reference the diagnosis code of Z31.49. [employer] Carrier Screen - [employer] will check coverage for you. For this [...] your test results into consideration. Sperm Bank [employer] [place] [facility] ([place]) [facility] [place] [facility] [employer] ([facility] [place]) [place] [facility] *Do not order any sperm until your checklist is complete. We will review ordering instructions at your follow up visit. Next Steps: Call insurance to verify coverage for donor sperm panel. Schedule donor sperm teach with my nurse practitioner, Silvia Hernandez. Ignacio Guy MD [phone] documented in this encounter [facility] 02-28-2024 Note HNO ID: [id number] Author: IGNACIO GUY MD Service: ? Author [...] OB History Obstetric History No data available ACID CONCENTRATOR HISTORY: Patient's last menstrual period was 02/18/2024. 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 They will meet with ORTHOTIST PROSTHETIST to review the IUI checklist and sign consents. I spent a total of 45 minutes on the date of the service which included preparing to see the patient, wgvg-tb-laru patient care, completing clinical documentation, counseling and [...] OB History Obstetric History No data available ACID CONCENTRATOR HISTORY: Patient's last menstrual period was 02/18/2024. 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 They will meet with ORTHOTIST PROSTHETIST to review the IUI checklist and sign consents. I spent a total of 45 minutes on the date of the service which included preparing to see the patient, dzvz-wm-svtb patient care, completing clinical documentation, counseling and educating the patient/family/caregiver, and ordering medications, tests, or procedures. Ignacio Guy MD documented in this encounter [facility] 02-27-2024 Evaluation note Diagnosis Onset Date Resolution Degenerative superior labral tbbvmgxq-yr-zwtpolfeg (SLAP) tear of right matthias acute Novembe [...] Novem wenceslao 2023 2:25pm Degenerative superior labral swmwtjoz-ke-mczcrusjl (SLAP) tear of right matthias acute April 23, 2024 2:29pm Laxity of ligament acute 2024 2:29pm Multidirectional instability of glenohumeral joint acute April 23, 2024 2:29pm Other instability, right shoulder acute April 23 2:29pm Right carpal tunnel syndrome acute April 23 2:29pm Status post arthroscopy of right shoulder acute April 23, 2 025 2:29pm [facility] Work Phone: 1(479) 562-389011-11-2024 Evaluation note* Diagnosis Onset Date Resolution Status Admit Date Degenerative superior labral zqtxcowc-ig-otggzjuia (SLAP) tear of right matthias acute February 27, 2024 2:25pm Laxity of ligament acute Novemb er 2023 2:25pm Multidirectional instability of glenohumeral joint acute February 162023 2:25pm Other instability, right shoulder acute February 26, 2 024 2:25pm Right carpal tunnel syndrome acute February 27, 2024 2:25pm Status post arthroscopy of right shoulder acute February 26, 2 024 2:25pm Status post surgery noneactive Novem 2023 2:25pm Degenerative superior labral opxpwwjf-oj-udmbwioew (SLAP) tear of right matthias acute April [...] 8:29am Other chronic pain acute 2024 8:29am [facility] Work Phone: 1(598) 739-456411-04-2024 History of Present illness Narrative* Marsha Asif MA - 02/20/2024 2:50 PM EST Reason [...] nursing note reviewed. Exam conducted with a call or contact centre manager present. Vitals: Estimated body mass index is [...] behalf of: TRENT Engle documented in this encounterMadison [facility] [id number] Note [id number]#1.00[facility]09-03-2024 Evaluation note* Diagnosis Onset Date Resolution Status Admit Date Degenerative superior labral uiejebxb-jn-lxocrsblc (SLAP) tear of right matthias acute December 20, 2023 10:11am Laxity of ligament acute Septem 2023 10:11am Multidirectional instability of glenohumeral joint acute December 20, 2023 10:11am Other instability, right shoulder acute December 19 10:11am Right carpal tunnel syndrome acute December 20, 2023 10:11am Status post arthroscopy of right shoulder acute December 19 10:11am Status post surgery noneactive Septe [facility] [place] 2023 10:11am Degenerative superior labral fxzhwooa-ex-xdllxfgeh (SLAP) tear of right matthias acute January 16, 2 024 11:58am Laxity of ligament acute Octobe r 2023 11:58am Multidirectional instability of glenohumeral joint acute January 11:58am Other instability, right shoulder acute January 16 11:58am Right carpal tunnel syndrome acute January 17, 2024 11:58am Status post arthroscopy of right shoulder acute January 16 11:58am Status post surgery noneactive Octob er 2023 11:58am Degenerative superior labral whhfrqsa-ew-qzxyoxqgb (SLAP) tear of right matthias acute February 27, 2024 2:25pm Laxity of ligament acute Novemb er 2023 2:25pm Multidirectional instability of glenohumeral joint acute February 162023 2:25pm Other instability, right shoulder acute February 26 024 2:25pm Right carpal tunnel syndrome acute February 27, 2024 2:25pm Status post arthroscopy of right shoulder acute February 26, 024 2:25pm Status post surgery noneactive Novem wenceslao 2023 2:25pm [facility] Work Phone: 1(235) 877-214307-17-2024 NoteEducation Materials Orthopedics Musculoskeletal Pain Musculoskeletal pain [...] mouth or applied to the skin. Take cfwy-nbf-teodzsj and prescription medicines only as told by [...] provider. Document Revised: 08/07/2020 Document Reviewed: 07/16/2020 [employer] Patient Education ? 2022 [employer].[facility] Healthcare [id number] Evaluation note* Encounter Date Diagnosis Assessment Notes Treatment Notes Treatment Clinical Notes Apr, Intertrigo (ICD-10 - L30.4) [facility] Other 01-30-2024 Evaluation note* Encounter Date Diagnosis [...] pain of right shoulder (ICD-10 - M25.511) [facility] Other 01-05-2024 Evaluation note* Encounter Date Diagnosis Assessment Notes Treatment Notes Treatment Clinical Notes Apr, Other iron deficiency anemia (ICD-10 - D50.8) [facility] Other 12-28-2023 Evaluation note* Encounter Date Diagnosis Assessment Notes Treatment Notes Treatment Clinical Notes Mar, Vitamin D deficiency (ICD-10 - E55.9) [facility] Other 10-23-2023 Evaluation note* Encounter Date Diagnosis [...] agreement for this and referral was given. [facility] Other 09-21-2023 Evaluation note* Encounter Date Diagnosis Assessment Notes Treatment Notes Treatment Clinical Notes Dec, Other iron deficiency anemia (ICD-10 - D50.8) Dec, Low folic acid (ICD-10 - E53.8) [facility] Other 09-11-2023 Evaluation note* Encounter Date Diagnosis [...] continue to do the exercises for strength. [facility] Other 07-06-2023 Evaluation note* Encounter Date Diagnosis Assessment Notes Treatment Notes Treatment Clinical Notes Oct, Iron deficiency (ICD-10 - E61.1) [facility] Other 06-26-2023 Evaluation note* Encounter Date Diagnosis [...] symptoms and causing pain down the arm. [facility] Other 06-15-2023 Evaluation note* Encounter Date Diagnosis [...] verbalizes understanding and agrees c tx plan. [facility] Other 05-10-2023 Evaluation note* Encounter Date Diagnosis [...] follow-up if no improvement. She verbalizes understnading. [facility] Other 05-05-2023 Evaluation note* Encounter Date Diagnosis Assessment Notes Treatment Notes Treatment Clinical Notes August, Acquired hypothyroidism (ICD-10 - E03.9) Discussed with pt symptoms and lab resutls. Discussed treatment and evaluation. Referral placed to Dr. Sinclair. 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 Patient has an appointment with her DRIVABILITY TECHNICIAN next week. Educated her to go to ED if she continues to have heavy bleeding with symptoms, she verbalized understanding. We will send patient home on iron supplements and docusate as needed for constipation Patient is being discharged today. Documented By: Farhad Gallego MD 06/11/22 1306 Signed By: <Electronically signed by Farhad Gallego MD> 06/11/22 1316 [facility] Work Phone: 1(497) 929-232402-23-2023 History and physical note Author Farhad Gallego [facility] June 10, 2022 6:28pm Note Date/Time June 10, 2022 5:39pm [facility] [address] [place] [address] Hospitalist H&P Signed Patient: Jaz Sanders MR#: [id number] : 1995 Acct:[id number] Age/Sex: 27 / F Adm Date: 3 Loc: 4N Room: 5Y7623-3 Type: ADM INOo Attending Dr: Farhad Gallego MD Copies to: MD Amanda Correa, SOURCING SPECIALIST, TRAVEL REGISTERED NURSE NICU~ HPI DATE OF EXAMINATION: 06/10/22 CHIEF COMPLAINT: [...] menstrual period (LMP) > 10 days ago June 20 to Morbid obesity with BMI of 50.0-59.9, adult OAB (overactive bladder) Vitamin D deficiency Surgical History H/O gastric sleeve History of esophagogastroduodenoscopy (EGD) History of laparoscopic cholecystectomy 2015 History of nasal surgery NASAL PLUG PLACED [...] % (Auto) 41.3 % (.) 06/10/22 14:51 [place] % (Auto) 6.8 % (.) 06/10/22 14:51 Eos % (Auto) 5.0 % (.) 06/10/22 14:51 Baso % (Auto) 1.8 % (.) 06/10/22 14:51 Nucleat RBC Rel Count 0.1 /100 WBC (0-0.5) 06/10/22 14:51 Neut # (Auto) 2.4 x10E3/uL (1.8-7.7) 06/10/22 14:51 Lymph # (Auto) 2.2 x10E3/uL (1.00-4.8) 06/10/22 14:51 [place] # (Auto) 0.4 x10E3/uL (0.0-0.8) 06/10/22 14:51 [...] pH 5.5 (5.0-9.0) 06/10/22 15:40 Ur Specific [place] 1.010 (1.001-1.030) 06/10/22 15:40 Urine Protein Negative [...] code Documented By: Farhad Gallego MD 06/10/22 1739 Signed By: <Electronically signed by Farhad Gallego MD> 06/10/22 5298 [facility] Work Phone: 1([phone]) 758-652501-04-2023 Evaluation note* Encounter Date Diagnosis Assessment Notes [...] for bleeding. Keep appointment with Dr. Elder. [facility] Other 12-13-2022 Evaluation note* Encounter Date Diagnosis Assessment Notes Treatment Notes Treatment Clinical Notes Mar, Arthritis of shoulder (ICD-10 - M19.019) [facility] Other 12-06-2022 Evaluation note* Encounter Date Diagnosis [...] (ICD-10 - F90.0) [facility] due to she is currently treating her for anxiety and depression. And she has discussed this with Julieta and she had offered her treatement for this. [facility] Other 11-30-2022 Evaluation note* Encounter Date Diagnosis Assessment Notes Treatment Notes Treatment Clinical Notes Feb, Gastroesophageal ref lux disease without esophagitis (ICD-10 - K21.9) [facility] Other 10-24-2022 Evaluation note* Encounter Date Diagnosis [...] to trial the ointment. Follow-up as needed. [facility] Other 05-11-2022 NoteEchocardiology Procedure Exam Date/Time Accession # Ordering Echo Transthoracic 08/25/2021 15:36 EDT [id number] Jay DAVEY, Samir Rivera CPT code 52945 Reason for Exam (Echo Transthoracic Complete) Bradycardia;Other [...] Robin Salazar MD Transcribed by: kerry Technologist: [facility]04-21-2022 Note Echocardiology Procedure Exam Date/Time Accession # Ordering ECG Stress Exercise 08/06/2021 10:22 EDT [id number] Jay DAVEY, Samir Chapman. CPT code 66211 Reason for Exam (ECG Stress Exercise) bradycardia;Other [...] Robin Salazar MD Transcribed by: nakul Technologist: [facility]03-31-2022 Evaluation note* Encounter Date Diagnosis Assessment Notes [...] school on two different occasions.Order faxed to [facility]. Jun, Gastroesophageal reflux disease without esophagitis (ICD-10 [...] Jun, Former smoker (ICD-1 0 - Z87.891) [facility] Other Evaluation + Plan note Future Appointments Appointment Date:08/06/2021 09:30:00 AM Scheduled Provider: Location:[facility] Appointment Type:CV Stress (FT) Appointment Date:08/06/2021 11:00:00 AM Scheduled Provider: Location:[facility] Appointment Type:CV Holter/Event (FT) Future Scheduled Tests Radiology* Echo Transthoracic Complete 07/24/21 * ECG [facility] Appointment Date:08/11/2021 10:30:00 AM Scheduled Provider:Jay DAVEY, Samir Rivera Location[facility] [place] Appointment Type[facility]iology Follow Up [facility] Future Appointments Appointment Date:09/01/2021 02:30:00 PM Scheduled Provider:Samir Thompson MD [facility] App[facility] Future Appointments Appointment Date:2022 11:15:00 AM Scheduled Provider:Samir Thompson MD Location:[facility] App[facility]ment Type[facility] note[facility] InformationNort [employer] Other evaluation noteNo assessment information available [facility] Work Phone: evaluation note* Diagnosis Onset Date Resolution Status Anemia acute Anxiety and depression acute Bipolar disorder acute Iron deficiency anemia acute [facility] Work Phone: evaluation note* Diagnosis Onset Date Resolution Status Abdominal pain acute Chills acute Constipation acute Fever acute H/O gastric sleeve acute Vomiting acute [facility] Work Phone: evaluation note* Diagnosis Onset Date Resolution Status [id number] acute Laxity of ligament acute Multidirectional instability of glenohumeral joint acute Numbness of right hand acute Other instability, right shoulder acute [facility] Work Phone: evaluation note* Diagnosis Onset Date Resolution Status [id number] acute Laxity of ligament acute Multidirectional instability of glenohumeral joint acute Numbness of right hand acute Other instability, right shoulder acute [id number] acute Laxity of ligament acute Multidirectional instability of glenohumeral joint acute Numbness of right hand acute Other instability, right shoulder acute Right carpal tunnel syndrome acute [facility] Work Phone: evaluation note* Diagnosis Onset Date Resolution Status [id number] acute Laxity of ligament acute Multidirectional instability of glenohumeral joint acute Numbness of right hand acute Other instability, right shoulder acute [id number] acute Laxity of ligament acute Multidirectional instability of glenohumeral joint acute Numbness of right hand acute Other instability, right shoulder acute Right carpal tunnel syndrome acute [id number] acute Laxity of ligament acute Multidirectional instability of glenohumeral joint acute Other instability, right shoulder acute Right carpal tunnel syndrome acute [facility] Work Phone: Evaluation note* Diagnosis Onset Date Resolution Status [id number] acute Laxity of ligament acute Multidirectional instability of glenohumeral joint acute Numbness of right hand acute Other instability, right shoulder acute [id number] acute Laxity of ligament acute Multidirectional instability of glenohumeral joint acute Numbness of right hand acute Other instability, right shoulder acute Right carpal tunnel syndrome acute [id number] acute Laxity of ligament acute Multidirectional instability of glenohumeral joint acute Other instability, right shoulder acute Right carpal tunnel syndrome acute [id number] acute Laxity of ligament acute Multidirectional instability of glenohumeral joint acute Other instability, right shoulder acute Right carpal tunnel syndrome acute Status post arthroscopy of right shoulder acute [facility] Work Phone: Evaluation note* Diagnosis Onset Date Resolution Status [id number] acute Laxity of ligament acute Multidirectional instability of glenohumeral joint acute Numbness of right hand acute Other instability, right shoulder acute Right carpal tunnel syndrome acute [id number] acute Laxity of ligament acute Multidirectional instability of glenohumeral joint acute Other instability, right shoulder acute Right carpal tunnel syndrome acute [id number] acute Laxity of ligament acute Multidirectional instability of glenohumeral joint acute Other instability, right shoulder acute Right carpal tunnel syndrome acute Status post arthroscopy of right shoulder acute Status post surgery noneacti ve [id number] acute Laxity of ligament acute Multidirectional instability of glenohumeral joint acute Other instability, right shoulder acute Right carpal tunnel syndrome acute Status post arthroscopy of right shoulder acute Status post surgery noneacti ve [facility] Work Phone: Evaluation note* Diagnosis Well woman exam with routine gynecological exam Routine gynecological examination documented [facility] Diagnosis 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 documented in this encounter [facility] note* Diagnosis Reproductive mgmt, 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 Special screening examination for infectious diseases Screening examination for unspecified infectious disease Encounter for other genetic testing of female for procreative management documented in this encounter [facility] note* Diagnosis Bipolar 1 disorder (Multi)- Primary Infertility counseling documented in this encounter [facility] Diagnosis Treatment plan provided- Primary documented in this encounter [facility] note* Diagnosis Reproductive mgmt, 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 documented in this encounter [facility] note* Diagnosis Procreative management- Primary Unspecified procreative management documented in this encounter [facility] note* Diagnosis Female infertility- Primary Female infertility of unspecified origin documented in this encounter [facility] note* Diagnosis Fertility testing- Primary Female infertility Female infertility of unspecified origin documented in this encounter [facility] note* Diagnosis Encounter for fertility planning [Z31.89]- Primary Other specified procreative management documented in this encounter [facility] note* Diagnosis Encounter for artificial insemination- Primary Artificial insemination documented in this encounter [facility] note* Diagnosis 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)- Primary documented in this encounter [facility] note* Diagnosis 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)- Primary documented in this encounter [facility] note* Diagnosis Abnormal thyroid function test- Primary Nonspecific abnormal results of thyroid function study 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 Vitamin D deficiency [facility] Diagnosis 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) documented in this encounter [facility] note* Diagnosis Early stage of (HCC) state, incidental documented in this encounter [facility] note* Diagnosis Amenorrhea Absence of menstruation 9 weeks gestation of Missed menses , unspecified gestational age Encounter for supervision of normal first in first trimester documented in this encounter [facility] note* Diagnosis 13 weeks gestation of ([facility]HS-HCC) Second trimester ([facility]) state, incidental Thyroid disease Unspecified disorder of thyroid H/O gastric sleeve H/O iron deficiency anemia resulting from in vitro fertilization in first trimester ([facility]) documented in this encounter [facility]* Diagnosis Well woman exam with routine gynecological exam Routine gynecological examination Exposure to STD Second trimester ([facility]) state, incidental 18 weeks gestation of ([facility]) Need for maternal serum alpha-protein (MSAFP) screening ([facility]) Screening, , for anatomic survey ([facility]) Encounter for anatomic survey Thyroid disease Unspecified disorder of thyroid documented in this encounter [facility] HealthcareHistory general Narrative - Reported* Type Description Date Surgical History cholecystectomy 2014 Surgical History gastric sleeve 2020 [facility] Other History general Narrative - Reported* Type Description Date Medical History Hypothyroidism Medical History MNG Medical History enuresis Medical History extreme obesity Medical History GERD with esophagitis Medical History headache Medical History Goiter, nontoxic, multinodular Medical History Vitamin D deficiency Surgical History cholecystectomy 2014 Surgical History cholecystectomy 2015 Surgical History gastric sleeve 2020 Hospitalization History Anemia 05/2022 [facility] Other Hospital course Narrative No data available for this section [facility] Discharge instructions No data available for this section [facility] Discharge instructions Additional Instructions POSTOPERATIVE INSTRUCTIONS FOR SHOULDER LABRAL REPAIR Romeo Santana DO Orthopedic Sur[facility] GENERAL INSTRUCTIONS: Use ice packs to the [...] office immediately. Romeo Santana DO Orthopedic Surgeon [facility] Office: [address] [place] [address] Office number: [phone] [facility] Work Phone: Hospital Discharge instructionsAmbulatory Orders* Referral to Allergy/Immunology Time Frame: 04/26/24, Location: None [facility] Work Phone: Hospital Discharge instructions Additional Instructions We evaluated you for your vaginal bleeding in . Your ultrasound was normal, the baby has a good heart rate, measuring at 13 weeks and 1 day. Your cervix was closed. Follow-up closely with your DRIVABILITY TECHNICIAN. Return to the emergency department if you develop any worsening or concerning symptoms.[facility] Work Phone: InstructionsNot on filedocumented in this encounter [facility] SystemReason for referral (narrative)No reason for referral information [facility] Work Phone: Reason for visit Narrative* Consult, Test, Treat (Routine) - Closed Specialty Diagnoses / Procedures Referred By Contact Referred To Contact REPRODUCTIVE ENDOCRINOLOGY & FERTILITY Diagnoses Encounter for procreative management, unspecified Encounter for other procreative management Procedures ARTIFIC INSEMINATION INTRAUTERIN THAWING CRYOPRESERVED SPERM/SEMEN EACH ALIQUOT Daniel Hanna, MELY.TRAVEL REGISTERED NURSE NICU [address] [place] [id number] Phone: tel:[phone] fax:[phone] Reproductive Endocrinology Infertility [address] [place] [id number] Phone: tel: Referral ID Status Reason Start Date Expiration Date V isits Requested Visits Authorized [id number] Closed Financial Clearance Required - Self Pay Patient Cleared - True Self-Pay required payment collected Do Not Bill Insurance - SP patient 05/17/2024 08/15/2024 2 2 [facility] for visit Narrative* Diagnostic Procedure Only (Routine) - Authorized Specialty Diagnoses / Procedures Referred By Contac t Referred To Contact [facility] Diagnoses Fertility testing Procedures PELVIC US WHI US PELVIC NONOBSTETRIC REAL-TIME IMAGE COMPLETE Ignacio Guy MD [address] [place] [address] Phone: tel: fax: [facility] [address] [place] [address] Referral ID Status Reason Start Date Expiration Date Visits Requested Visits Authorized [id number] Authorized Auto-Generate d Referral Patient Cleared - True Self-Pay required payment collected Do Not Bill Insurance - SP patient 06/09/2024 06/09/2025 2 2 [facility] for visit Narrative* Consult, Test, Treat (Routine) - Closed Specialty Diagnoses / Procedures Referred By Contact Referred To Contact REPRODUCTIVE ENDOCRINOLOGY & FERTILITY Diagnoses Encounter for procreative management, unspecified Encounter for other procreative management Procedures THAWING CRYOPRESERVED SPERM/SEMEN EACH ALIQUOT ARTIFIC INSEMINATION INTRAUTERIN Daniel Hanna, SOURCING SPECIALIST.TRAVEL REGISTERED NURSE NICU [address] [place] [address] Phone: tel:[phone] fax:[phone] Reproductive Endocrinology Infertility [address] [place] [id number] Phone: tel: Referral ID Status Reason Start Date Expiration Date V isits Requested Visits Authorized [id number] Closed Patient Cleared - True Self-Pay required payment collected Do Not Bill Insurance - SP patient 06/29/2024 09/27/2024 2 2 [facility] for visit Narrative* Financial Clearance (Routine) - Closed Specialty Diagnoses / Procedures Referred By Saud tavera Referred To Contact FINANCE Diagnoses Collect for IUI-D washed sample Procedures THAWING CRYOPRESERVED SPERM/SEMEN EACH ALIQUOT ARTIFIC INSEMINATION INTRAUTERIN FINANCIAL CLEARANCE PHONE CALL Self Financial Clearance Phone Screening [place] [address] Referral ID Status Reason Start Date Expiration Date V isits Requested Visits Authorized [id number] Closed Financial Clearance Required - Self Pay Patient Cleared - True Self-Pay required payment collected Do Not Bill Insurance - SP patient 07/25/2024 09/23/2024 2 2 [facility] for visit Narrative* Diagnostic Procedure Only (Routine) - Closed Specialty Diagnoses / Procedures Referred By Saud tavera Referred To Contact [facility] Diagnoses 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) Procedures OBSTETRIC ULTRASOUND WHI US PREG UTERUS AFTER 1ST TRIMEST GESTATION Shelly Hernandez, SOURCING SPECIALIST.TRAVEL REGISTERED NURSE NICU [address] [address] Phone: tel: fax: [facility] [address] [place] [address] Referral ID Status Reason Start Date Expiration Date V isits Requested Visits Authorized [id number] Closed Auto-Generate d Referral 08/20/2024 08/20/2025 1 1 [facility] for visit Narrative* Diagnostic Procedure Only (Routine) - Closed Specialty Diagnoses / Procedures Referred By Contac t Referred To Contact [facility] Diagnoses Early stage of (HCC) Procedures OBSTETRIC ULTRASOUND WHI US PREG UTERUS AFTER 1ST TRIMEST GESTATION Shelly Hernandez APRN.TRAVEL REGISTERED NURSE NICU [address] [place] [address] Phone: tel: fax: [facility] [place] [address] Referral ID Status Reason Start Date Expiration Date V isits Requested Visits Authorized [id number] Closed Auto-Generate d Referral 09/03/2024 04/17/2025 1 1 [facility] Advance Directives No Advanced Directives Records FoundDocuments on File Type Date Recorded Patient Automatic Quilling Machine Operator Expl anation ACP-Advance Directive ACP-Power of Biomaterials Engineer Documents on File Type Date Recorded Patient Automatic Quilling Machine Operator Expl anation ACP-Advance Directive ACP-Power of Biomaterials Engineer Latest Code Status on File Code Status [...] drive you home after your procedure. Your grab driver must be 18 years of age [...] questions, call the Pre-Admission Testing Unit at [phone]. Day of Surgery/Procedure As a patient at [facility] you can expect quality medical and nursing care that is centered on your individual needs. Our goal is to make your surgical experience as comfortableas possible . Directions to the Surgery Center [facility] is located at [address] [place] [address]. Please pull into the Emergency parking lot and stop at the bike mechanic dotson. We offer free bike mechanic service for all our surgery patients, if you choose not to have bike mechanic parking we have additional parking across the street.You will enter the facility following the [facility] sign. Please stop at the receptionist doctor's office desk where you will be checked in by the staff. If you have any questions please call [phone]. Transportation after your procedure. You will need a friend or family member to drive you home after your procedure. Your grab driver must be18 years of age or [...] may shave your face or neck. ? Ty Ty your teeth but do not swallow water. [...] or the day of surgery, please call [phone], or [phone] documented in this encounter* Instructions* Mukesh Montez, DO - 05/06/2020 Rectus Block Instructions What is [...] 48 hours call the anesthesia department at [phone]. Will you need pain medication? The nerve [...] block please phone the Anesthesiology Department at [phone]. If the phone does not get answered please contact the hospital crimping machine operator at [phone] to page the irrigation worker anesthesiologist Discharge Instructions for Bariatric Surgery You had a Laparoscopic Sleeve Gastrectomy (40595) surgery to treat obesity. Recovery from this [...] scheduled appointment, please call the office at [phone]. Call Your Doctor If Any of the [...] AM EST CLINICAL PHARMACY NOTE: MEDS TO [facility] Patient?: No Total # of Prescriptions Filled: 3 The following medications were delivered to the patient: Oxycodone-acetaminophen 5/325 mg tab Cyclobenzaprine 10 mg tab Enoxaparin 60mg /0.6 ml syr Total # of Interventions Completed: 1 Time Spent (min): 60 Additional Documentation:called director of casework services about the high co-pay on the enoxaparin and they sent a voucher for it! We delivered medications to the patient in her room (246) 05/08 @11:15 am . * Mukesh Montez DO - 05/07/2020 6:23 AM EST General [...] Cook RN - 05/06/2020 10:[id number] Cohen to the bedside, time out [...] SHOULDER DI SCUSS SURGERY Reason for Visit [id number] Laxity of ligament Multidirectional instability of glenohumeral joint Numbness of right hand Other instability, right shoulder Chief Complaint OP SP RT SHOULDER DI SCUSS SURGERY R20.0 Reason for Visit [id number] Laxity of ligament Multidirectional instability of glenohumeral joint Numbness of right hand Other instability, right shoulder Chief Complaint OP SP RT SHOULDER DI SCUSS SURGERY R20.0 EMG RESULTS Reason for Visit [id number] Laxity of ligament Multidirectional instability of glenohumeral joint Numbness of right hand Other instability, right shoulder [id number] Laxity of ligament Multidirectional instability of glenohumeral joint Numbness of right hand Other instability, right shoulder Right carpal tunnel syndrome Chief Complaint OP SP RT SHOULDER DI SCUSS SURGERY R20.0 EMG RESULTS Shoulder pain Reason for Visit [id number] Laxity of ligament Multidirectional instability of glenohumeral joint Numbness of right hand Other instability, right shoulder [id number] Laxity of ligament Multidirectional instability of glenohumeral joint Numbness of right hand Other instability, right shoulder Right carpal tunnel syndrome Chief Complaint OP SP RT SHOULDER DI SCUSS SURGERY R20.0 EMG RESULTS Shoulder pain H & P RIGHT SHOULDER ARTHROSCOPY 12-07-23 Reason for Visit [id number] Laxity of ligament Multidirectional instability of glenohumeral joint Numbness of right hand Other instability, right shoulder [id number] Laxity of ligament Multidirectional instability of glenohumeral joint Numbness of right hand Other instability, right shoulder Right carpal tunnel syndrome [id number] Laxity of ligament Multidirectional instability of glenohumeral joint Other instability, right shoulder Right carpal tunnel syndrome Chief Complaint OP SP RT SHOULDER DI SCUSS SURGERY R20.0 EMG RESULTS Shoulder pain H & P RIGHT SHOULDER ARTHROSCOPY 12-07-23 Shoulder pain Shoulder pain Reason for Visit [id number] Laxity of ligament Multidirectional instability of glenohumeral joint Numbness of right hand Other instability, right shoulder [id number] Laxity of ligament Multidirectional instability of glenohumeral joint Numbness of right hand Other instability, right shoulder Right carpal tunnel syndrome [id number] Laxity of ligament Multidirectional instability of glenohumeral joint Other instability, right shoulder Right carpal tunnel syndrome Chief Complaint OP SP RT SHOULDER DI SCUSS SURGERY R20.0 EMG RESULTS Shoulder pain H & P RIGHT SHOULDER ARTHROSCOPY 12-07-23 Shoulder pain Shoulder pain 10-14 DAYS POST OP Reason for Visit [id number] Laxity of ligament Multidirectional instability of glenohumeral joint Numbness of right hand Other instability, right shoulder [id number] Laxity of ligament Multidirectional instability of glenohumeral joint Numbness of right hand Other instability, right shoulder Right carpal tunnel syndrome [id number] Laxity of ligament Multidirectional instability of glenohumeral joint Other instability, right shoulder Right carpal tunnel syndrome [id number] Laxity of ligament Multidirectional instability of glenohumeral joint Other instability, right shoulder Right carpal tunnel syndrome Status post arthroscopy of right shoulder Chief Complaint R20.0 EMG RESULTS Shoulder pain H & P RIGHT SHOULDER ARTHROSCOPY 12-07-23 Shoulder pain Shoulder pain 10-14 DAYS POST OP R20.0 4 WEEKS Reason for Visit [id number] Laxity of ligament Multidirectional instability of glenohumeral joint Numbness of right hand Other instability, right shoulder Right carpal tunnel syndrome [id number] Laxity of ligament Multidirectional instability of glenohumeral joint Other instability, right shoulder Right carpal tunnel syndrome [id number] Laxity of ligament Multidirectional instability of glenohumeral joint Other instability, right shoulder Right carpal tunnel syndrome Status post arthroscopy of right shoulder Status post surgery [id number] Laxity of ligament Multidirectional instability of glenohumeral [...] for Visit Admit Date 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 December 20, 2023 10:11am Laxity of ligament December 20, 2023 10:11am Multidirectional instability of glenohum eral joint December 20, 2023 10:11am Other instability, right shoulder Septem 2023 10:11am Right carpal tunnel syndrome December 192023 10:11am Status post arthroscopy of right shoulde r December 20, 2023 10:11am Status post surgery December 20, 2023 10:11am Degenerative superior labral jdwturcg-wm-gqphtsili (SLAP) tear of right matthias January 17, 2024 11:58am Laxity of ligament January 17, 2024 11 :58am Multidirectional instability of glenohum eral joint January 17, 2024 11:58am Other instability, right shoulder Octobe 2023 11:58am Right carpal tunnel syndrome January 11:58am Status post arthroscopy of right shoulde r January 17, 2024 11:58am Status post surgery January 17, 2024 11 :58am Degenerative superior labral hymmyskh-tv-dgpdvrmvn (SLAP) tear of right matthias February 27, [...] for Visit Admit Date Degenerative superior labral rjbwxdbr-or-aahsggizr (SLAP) tear of right matthias February 27, 2024 2:25pm Laxity of ligament February 27, 2024 2:25pm Multidirectional instability of glenohum eral joint February 27, 2024 2:25pm Other instability, right shoulder Novemb er 2023 2:25pm Right carpal tunnel syndrome February 262023 2:25pm Status post arthroscopy of right shoulde r February 27, 2024 2:25pm Status post surgery February 27, 2024 2:25pm Degenerative superior labral hyjzmnjt-zl-nvzyyoyaf (SLAP) tear of right matthias April 23, 2024 2:29pm Laxity of ligament April 23, 2024 2: 29pm Multidirectional instability of glenohum eral joint April 23, 2024 2:29pm Other instability, right shoulder r 2024 2:29pm Right carpal tunnel syndrome April 2:29pm Status post arthroscopy of right shoulde r April 23, 2024 2:29pm Chief Complaint Admit Date 6 WEEKS February 27, 2024 2:25pm 6-8 WEEKS April 23, 2024 2: 29pm talk about getting allergy tested r y 2024 8:29am Reason for Visit Admit Date Degenerative superior labral zhfgxhpz-mz-dkvgdzfcv (SLAP) tear of right matthias February 27, 2024 2:25pm Laxity of ligament February 27, 2024 2:25pm Multidirectional instability of glenohum eral joint February 27, 2024 2:25pm Other instability, right shoulder Novemb er 2023 2:25pm Right carpal tunnel syndrome February 262023 2:25pm Status post arthroscopy of right shoulde r February 27, 2024 2:25pm Status post surgery February 27, 2024 2:25pm Degenerative superior labral fzlnnxkk-ju-qzlidvyfu (SLAP) tear of right matthias April 23, [...] therapy exercises and steroid injection, MRI at [facility], Dr. Santana Diagnosis 1 Tear of right glenoi d labrum, initial encounter (S43.431A) Referral Organization 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 Family Medicin e Casey Referring Provider First Name Amanda Referring Provider Last Name Logan Referring Provider Specialty Nurse Destiney hall Referred Organization [facility] Referred Provider Darleen Sinclair Referred Address [address] [facility] [address],[place], [place],[address] Referred Provider Specialty Endocrinolog y Referral Priority Routine General Notes Fore, Chelsi M 023 11:26:34 AM >Received today and waiting for office notes to be locked before sending referral Additional Source Comments Reason for Visit (unrecogniz ed section and content) Status Reason Specialty Diagnoses / Procedures Referre d By Contact Referred To Contact Diagnoses Morbid obesity (HCC) MORBID OBESITY, HYPOTHYROID Procedures NM LAP GASTRIC BYPASS/BEN-EN-Y XI LAPAROSCOPIC ROBOTIC GASTRIC BYPASS BEN-EN-Y, LIVER BIOPSY, EGD- GI UNIT SCHEDULED. Rashard Olivera DO [address] [facility] [address] [place] [address] [facility] Reason Comments Gynecologic Exam Reason Comments Infertility Specialty Diagnoses / Procedures Referred By [facility] Referred To Contact REPRODUCTIVE ENDOCRINOLOGY & FERTILITY Diagnoses Female infertility, unspecified Procedures VV OFFICE/OP CONSLTJ NEW/EST PT MOD MDM 40 MINUTES Ana Rosa Toscano, SOURCING SPECIALIST [facility] [address] [place] [address] Referral ID Status Reason Start Date Expiration Date V isits Requested Visits Authorized [id number] Closed Financial Clearance Required - Self Pay Patient Cleared - True Self-Pay required payment collected Do Not Bill Insurance - SP patient Financial Clearance Not Required 12/30/2023 02/28/2024 1 1 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 [address] [place] [phone] [facility] [address] [place] [address] Referral ID Status Reason Start Date Expiration Date V isits Requested Visits Authorized [id number] Closed Financial Clearance Required - Self Pay Patient Cleared - True Self-Pay required payment collected Do Not Bill Insurance - SP patient 02/28/2024 05/28/2024 1 1 Specialty Diagnoses / Procedures Referred By [facility] Referred To Contact REPRODUCTIVE ENDOCRINOLOGY & FERTILITY Diagnoses Encounter for fertility testing Procedures OFFICE/OUTPATIENT ESTABLISHED LOW MDM [address] [facility] [address] [place] [address] [facility] [address] [place] [address] Referral ID Status Reason Start Date Expiration Date V isits Requested Visits Authorized [id number] Closed Financial Clearance Required - Self Pay [...] section and content) DATE CREATED AUTHOR 05/08/2020 [facility] DATE CREATED AUTHOR AUTHOR'S ORGANIZ ATION 03/31/2021 [facility] DATE CREATED AUTHOR AUTHOR'S ORGANIZ ATION 09/04/2021 [facility] DATE CREATED AUTHOR AUTHOR'S ORGANIZ ATION 04/19/2024 [facility] DATE CREATED AUTHOR AUTHOR'S ORGANIZ ATION 05/05/2024 [facility] DATE CREATED AUTHOR AUTHOR'S ORGANIZ ATION 09/12/2024 [facility] DATE CREATED AUTHOR AUTHOR'S ORGANIZ ATION 10/05/2024 [facility] DATE CREATED AUTHOR AUTHOR'S ORGANIZ ATION 11/09/2024 [facility] DATE CREATED AUTHOR AUTHOR'S ORGANIZ ATION 11/22/2024 [facility] Care Teams (unrecognized sec tion and content) Team Status: Inactive Member Role Status Dates Robin Appiah MD Primary Care Provider Active Amanda Ford APRN ORTHOTIST PROSTHETIST-C Attending Provider Act misti Team Status: Inactive Member Role Status Dates Amanda Ford APRN ORTHOTIST PROSTHETIST-C Primary Care Provider Active Jean Jett PA-C Emergency Provider Active Team Status: Inactive Member Role Status Dates Amanda Ford APRN ORTHOTIST PROSTHETIST-C Primary Care Provider Active Jack Easton DO Emergency Provider Active Team Status: Active Member Role Status Dates Amanda Ford APRN ORTHOTIST PROSTHETIST-C Primary Care Provider Active Team Status: Inactive Member Role Status Dates Amanda Ford APRN ORTHOTIST PROSTHETIST-C Primary Care Provider, Attending Provider Active Team Status: Active Member Role Status Dates Amanda Ford APRN ORTHOTIST PROSTHETIST-C Primary Care Provider Active Jean Jett PA-C Emergency Provider Active Farhad Gallego MD Admit Provider, Attending Provider A ctive Team Status: Inactive Member Role Status Dates Amanda Ford APRN ORTHOTIST PROSTHETIST-C Primary Care Provider Active Jean Jett PA-C Emergency Provider Active Farhad Gallego MD Admit Provider, Attending Provider A ctive Team Status: Inactive Member Role Status Dates Amanda Ford APRN ORTHOTIST PROSTHETIST-C Primary Care Provider Active SHARRON Greco Attending Provider Active Team Status: Inactive Member Role Status Dates Provider Conversion Attending Provider Active St art: May 17, 2023 End: May 17, 2023 Team Status: Inactive Member Role Status Dates Amanda Ford APRN ORTHOTIST PROSTHETIST-C Primary Care Provider, Attending Provider Active Start: June 08, 2023 End: June 08, 2023 Team Status: Active Member Role Status Dates Amanda Ford APRN ORTHOTIST PROSTHETIST-C Primary Care Provider, Attending Provider Active Start: September 15, 2023 Team Status: Inactive Member Role Status Dates Amanda Ford APRN ORTHOTIST PROSTHETIST-C Primary Care Provider Active Start: October 13, 2023 End: October 13, 2023 Romeo Santana DO Attending Provider Active St art: October 13, 2023 End: October 13, 2023 Team Status: Inactive Member Role Status Dates Amanda Ford APRN ORTHOTIST PROSTHETIST-C Primary Care Provider Active Start: October 26, 2023 End: October 26, 2023 Romeo Santana , Attending Provider Active St art: October 26, 2023 End: October 26, 2023 Team Status: Inactive Member Role Status Dates Amanda Ford APRN ORTHOTIST PROSTHETIST-C Primary Care Provider Active Start: November 01, 2023 End: November 01, 2023 Romeo Santana , DO Attending Provider Active St art: November 01, 2023 End: November 01, 2023 Team Status: Inactive Member Role Status Dates Amanda Ford APRN ORTHOTIST PROSTHETIST-C Primary Care Provider Active Start: November 28, 2023 End: November 28, 2023 Romeo Santana , DO Attending Provider Active St art: November 28, 2023 End: November 28, 2023 Team Status: Inactive Member Role Status Dates Amanda Ford APRN ORTHOTIST PROSTHETIST-C Primary Care Provider Active Start: December 01, 2023 End: December 01, 2023 Romeo Santana DO Attending Provider Active St art: December 01, 2023 End: December 01, 2023 Team Status: Inactive Member Role Status Dates Amanda Ford APRN ORTHOTIST PROSTHETIST-C Primary Care Provider Active Start: December 07, 2023 End: December 07, 2023 Romeo Santana DO Attending Provider Active St art: December 07, 2023 End: December 07, 2023 Team Status: Active Member Role Status Dates Amanda Ford APRN ORTHOTIST PROSTHETIST-C Primary Care Provider Active Start: November Romeo Santana DO Attending Provider, Other Provider Active Start: December 07, 2023 Team Status: Inactive Member Role Status Dates Amanda Ford APRN ORTHOTIST PROSTHETIST-C Primary Care Provider Active Start: December 192023 End: December 20, 2023 Romeo Santana DO Attending Provider Active St art: December 20, 2023 End: December 20, 2023 Team Status: Active Member Role Status Dates Amanda Ford APRN ORTHOTIST PROSTHETIST-C Primary Care Provider Active Start: December 182023 Romeo Santana DO Other Provider Active Start: January 10, 2024 Daniel Hampton MD Attending Provider Active Start: January 10, 2024 Team Status: Inactive Member Role Status Dates Amanda Ford APRN ORTHOTIST PROSTHETIST-C Primary Care Provider Active Start: January 17, 2024 End: January 17, 2024 Romeo Santana DO Attending Provider Active St art: January 17, 2024 End: January 17, 2024 [employer] Relationship Specialty Start Date End Date Amanda Ford NP [address] [facility] [place] [address] PCP - General Family Medicine 01/17/23 [employer] Relationship Specialty Start Date End Date Amanda Ford NP [address] [facility] [place] [place] [address] PCP - General Family Medicine 01/17/23 Team Status: Inactive Member Role Status Dates Amanda Ford APRN ORTHOTIST PROSTHETIST-C Primary Care Provider Active Start: February 262023 End: February 27, 2024 Romeo Santana DO Attending Provider Active St art: February 27, 2024 End: February 27, 2024 [employer] Relationship Specialty Start Date End Date Amanda Ford NP PCP - General Family Medicine 01/17/23 Team Status: Active Member Role Status Dates Amanda Ford APRN ORTHOTIST PROSTHETIST-C Primary Care Provider Active Start: February Les Martinez DO Attending Provider Active Start : February 20, 2024 Team Status: Inactive Member Role Status Dates Amanda Ford APRN ORTHOTIST PROSTHETIST-C Primary Care Provider Active Start: April 23, 2024 End: April 23, 2024 Romeo Santana DO Attending Provider Active St art: April 23, 2024 End: April 23, 2024 Team Status: Inactive Member Role Status Dates Amanda Ford APRN ORTHOTIST PROSTHETIST-C Primary Care Provider, Attending Provider Active Start: April 26, 2024 End: April 26, 2024 [employer] Relationship Specialty Start Date End Date Amanda Ford NP [facility] [place] [address] PCP - General Family Medicine 01/17/23 [employer] Director Relationship Specialty Start Date End Date Amanda Ford NP [address] [place] [address] [place] [address] PCP - General Family Medicine 01/17/23 [employer] Director Relationship Specialty Start Date End Date Amanda Ford NP [address] [place] [address] [place] [address] PCP - General Family Medicine 01/17/23 [employer] Relationship Specialty Start Date End Date Amanda Ford NP [address] [place] [address] [place] [address] PCP - General Family Medicine 01/17/23 Team Status: Inactive Member Role Status Dates Amanda Ford APRN ORTHOTIST PROSTHETIST-C Primary Care Provider Active Start: October 18, 2024 End: October 18, 2024 Kassidy Arriaza DO Emergency Provider Active Start: October 18, 2024 End: October 18, 2024 [employer] Relationship Specialty Start Date End Date Amanda Ford NP [address] [place] [address] [place] [address] PCP - General Family Medicine 01/17/23 [employer] Director Relationship Specialty Start Date End Date No Pcp, [place] [address] PCP - General Family Medicine 05/20/20 [employer] Relationship Specialty Start Date End Date No Pcp, [place] [address] PCP - General Family Medicine 05/20/20 [employer] Relationship Specialty Start Date End Date Amanda Ford NP [address] [place] [address] [place] [address] PCP - General Family Medicine 01/17/23 [employer] Director Relationship Specialty Start Date End Date Amanda Ford NP [address] [place] [address] [place] [address] PCP - General Family Medicine 01/17/23 [employer] Director Relationship Specialty Start Date End Date Amanda Ford NP [address] [place] [address] [place] [address] PCP - General Family Medicine 01/17/23 Goals (unrecognized section and content) Goals may be documented in a n alternate section Source Comments (unrecognize d section and content) In the event this informatio n is protected by the Federal Confidentiality of Alcohol and Drug Abuse Patient Records regulations: The Federal rules restrict any use of the information to criminally investigate or prosecute any alcohol or drug abuse patient.[facility] the event this information is protected by the Federal Confidentiality of Alcohol and Drug Abuse Patient Records regulations: The Federal rules restrict any use of the information to criminally investigate or prosecute any alcohol or drug abuse patient.[facility] the event this information is protected by the Federal Confidentiality of Alcohol and Drug Abuse Patient Records regulations: The Federal rules restrict any use of the information to criminally investigate or prosecute any alcohol or drug abuse patient.[facility] the event this information is protected by the Federal Confidentiality of Alcohol and Drug Abuse Patient Records regulations: The Federal rules restrict any use of the information to criminally investigate or prosecute any alcohol or drug abuse patient.[facility] the event this information is protected by the Federal Confidentiality of Alcohol and Drug Abuse Patient Records regulations: The Federal rules restrict any use of the information to criminally investigate or prosecute any alcohol or drug abuse patient.[facility] the event this information is protected by the Federal Confidentiality of Alcohol and Drug Abuse Patient Records regulations: The Federal rules restrict any use of the information to criminally investigate or prosecute any alcohol or drug abuse patient.[facility] the event this information is protected by the Federal Confidentiality of Alcohol and Drug Abuse Patient Records regulations: The Federal rules restrict any use of the information to criminally investigate or prosecute any alcohol or drug abuse patient.[facility] the event this information is protected by the Federal Confidentiality of Alcohol and Drug Abuse Patient Records regulations: The Federal rules restrict any use of the information to criminally investigate or prosecute any alcohol or drug abuse patient.[facility] the event this information is protected by the Federal Confidentiality of Alcohol and Drug Abuse Patient Records regulations: The Federal rules restrict any use of the information to criminally investigate or prosecute any alcohol or drug abuse patient.[facility] the event this information is protected by the Federal Confidentiality of Alcohol and Drug Abuse Patient Records regulations: The Federal rules restrict any use of the information to criminally investigate or prosecute any alcohol or drug abuse patient.[facility] the event this information is protected by the Federal Confidentiality of Alcohol and Drug Abuse Patient Records regulations: The Federal rules restrict any use of the information to criminally investigate or prosecute any alcohol or drug abuse patient.[facility] the event this information is protected by the Federal Confidentiality of Alcohol and Drug Abuse Patient Records regulations: The Federal rules restrict any use of the information to criminally investigate or prosecute any alcohol or drug abuse patient.[facility] the event this information is protected by the Federal Confidentiality of Alcohol and Drug Abuse Patient Records regulations: The Federal rules restrict any use of the information to criminally investigate or prosecute any alcohol or drug abuse patient.[facility] the event this information is protected by the Federal Confidentiality of Alcohol and Drug Abuse Patient Records regulations: The Federal rules restrict any use of the information to criminally investigate or prosecute any alcohol or drug abuse patient.[facility] the event this information is protected by the Federal Confidentiality of Alcohol and Drug Abuse Patient Records regulations: The Federal rules restrict any use of the information to criminally investigate or prosecute any alcohol or drug abuse patient.[facility]In the event this information is protected by the Federal Confidentiality of Alcohol and Drug Abuse Patient Records regulations: The Federal rules restrict any use of the information to criminally investigate or prosecute any alcohol or drug abuse patient.[facility]In the event this information is protected by the Federal Confidentiality of Alcohol and Drug Abuse Patient Records regulations: The Federal rules restrict any use of the information to criminally investigate or prosecute any alcohol or drug abuse patient.[facility]In the event this information is protected by the Federal Confidentiality of Alcohol and Drug Abuse Patient Records regulations: The Federal rules restrict any use of the information to criminally investigate or prosecute any alcohol or drug abuse patient.[facility]In the event this information is protected by the Federal Confidentiality of Alcohol and Drug Abuse Patient Records regulations: The Federal rules restrict any use of the information to criminally investigate or prosecute any alcohol or drug abuse patient.[facility]In the event this information is protected by the Federal Confidentiality of Alcohol and Drug Abuse Patient Records regulations: The Federal rules restrict any use of the information to criminally investigate or prosecute any alcohol or drug abuse patient.[facility]In the event this information is protected by the Federal Confidentiality of Alcohol and Drug Abuse Patient Records regulations: The Federal rules restrict any use of the information to criminally investigate or prosecute any alcohol or drug abuse patient.[facility]In the event this information is protected by the Federal Confidentiality of Alcohol and Drug Abuse Patient Records regulations: The Federal rules restrict any use of the information to criminally investigate or prosecute any alcohol or drug abuse patient.[facility]In the event this information is protected by the Federal Confidentiality of Alcohol and Drug Abuse Patient Records regulations: The Federal rules restrict any use of the information to criminally investigate or prosecute any alcohol or drug abuse patient.[facility]In the event this information is protected by the Federal Confidentiality of Alcohol and Drug Abuse Patient Records regulations: The Federal rules restrict any use of the information to criminally investigate or prosecute any alcohol or drug abuse patient.[facility]In the event this information is protected by the Federal Confidentiality of Alcohol and Drug Abuse Patient Records regulations: The Federal rules restrict any use of the information to criminally investigate or prosecute any alcohol or drug abuse patient.[facility]In the event this information is protected by the Federal Confidentiality of Alcohol and Drug Abuse Patient Records regulations: The Federal rules restrict any use of the information to criminally investigate or prosecute any alcohol or drug abuse patient.[facility]In the event this information is protected by the Federal Confidentiality of Alcohol and Drug Abuse Patient Records regulations: The Federal rules restrict any use of the information to criminally investigate or prosecute any alcohol or drug abuse patient.[facility] FOR RECORDS PERTAINING TO PATIENTS WHO ARE [...] BE BASED ON THE PRIMARY CLINICAL RECORDS. [facility] [employer] [facility]. provides no warranty or guarantee of the accuracy or completeness of information in this document.
--- NOTE | 2024-11-30 12:20 | ECG_ITS ---
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 Measurements Intervals [place] Rate: 64 P: 37 IN: 146 QRS: 32 QRSD: 94 T: 13 QT: 418 QTc: 427 Interpretive Statements 1100 Sinus rhythm 8102 Low QRS voltage in chest leads 9120 atypical ECG No previous ECG available for comparison Electronically Signed On 11-30-2024 20:53:16 EDT by RACHAEL GAITAN M.D.
--- NOTE | 2024-11-30 12:28 | ED_ITS ---
HPI HPI - General Adult General Chief complaint: Headache Stated complaint: 19 WKS ; HIGH BLOOD PRESSURE, HEADACHE, AN Time Seen by Provider: 11/30/24 12:14 Source: patient Mode of arrival: walk-in Limitations: no limitations History of Present Illness HPI narrative: 29-year-old female presents for swelling in her feet and headache. She has had a headache for few weeks and there is been no trauma. She is currently , about 19 weeks. No bleeding or abdominal pain. 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 This is her first . Related Data Home Medications ?Medication ?Instructions ?Recorded ?Confirmed docusate sodium 100 mg capsule 100 mg PO DAILY 5 11/17/24 lamotrigine 200 mg tablet 200 mg PO DAILY 11/17/2406/12 lansoprazole 30 mg capsule,delayed 30 mg PO DAILY 06/1211/17/24 release levothyroxine 50 mcg tablet 50 mcg PO DAILY 11/17/24 0 11/17/24 polysaccharide iron complex 180 mg 180 mg PO BID 11/1711/17/24 iron capsule (Pro Fe) quetiapine 25 mg tablet 25 mg PO .qhs 11/17/2411/17 sertraline 25 mg tablet 25 mg PO DAILY 11/17/2406/12 Allergies Allergy/AdvReac Type Severity Reaction Status Date / Time No Known Drug Allergies Allergy Verified 11/17/24 09:50 Review of Systems ROS Narrative A ten point review of systems is negative except as noted above. PFSH PFSH Social History Little interest or pleasure in doing things: not at all Feeling down, depressed, or hopeless: not at all Exam Narrative Exam Narrative: Nurses note and vital signs reviewed and patient is not hypoxic. General: The patient appears well and in no apparent distress. Patient is resting comfortably on cart. Skin: Warm, dry, no pallor noted. There is no rash noted. Head: Normocephalic, atraumatic Eye: Normal conjunctiva, no drainage Ears, Nose, Mouth, and Throat: oral mucosa is moist. Nares patent. Cardiovascular: Regular Rate and Rhythm Respiratory: Patient is in no distress, no accessory muscle use, lungs are clear to auscultation, no wheezing, rales or rhonchi Back: non-tender GI: Soft and nontender Musculoskeletal: There is no pitting edema in her feet or ankles but they are mildly swollen. Her hands are not swollen. Neurological: A&O, normal speech Psychiatric: Cooperative Constitutional Vital Signs, click to edit/add: Last Vital Signs Temp 98.8 F 11/30/24 12:05 Pulse 89 11/30/24 13:10 Resp 17 11/30/24 13:10 BP 113/62 11/30/24 13:04 Pulse Ox 100 11/30/24 12:05 O2 Del Method Room Air 11/30/24 12:05 Course Vital Signs Vital signs: Vital Signs Temperature 98.8 F 11/30/24 12:05 Pulse Rate 78 11/30/24 12:05 Respiratory Rate 18 11/30/24 12:05 Blood Pressure 120/68 11/30/24 12:05 Pulse Oximetry 100 11/30/24 12:05 Oxygen Delivery Method Room Air 11/30/24 12:05 Temperature 98.8 F 11/30/24 12:05 Pulse Rate 89 11/30/24 13:10 Respiratory Rate 17 11/30/24 13:10 Blood Pressure 113/62 11/30/24 13:04 Pulse Oximetry 100 11/30/24 12:05 Oxygen Delivery Method Room Air 11/30/24 12:05 Medical Decision Making MDM Narrative Medical decision making narrative: Her laboratory analysis is negative and blood pressure is normal. She was recommended elevating her feet and she will follow-up with Dr. Martinez. No evidence of -induced hypertension or HELLP syndrome. Treatment diagnosis and follow-up were discussed with the patient. Differential Diagnosis Differential Diagnosis: -induced hypertension, HELLP syndrome, peripheral edema Lab Data Lab results reviewed: Yes I reviewed the patient's lab results Labs: Lab Results 11/30/24 11/30/24 Range/Units 12:24 13:13 WBC 8.7 (4.0-11.0) 10^3/uL RBC 4.20 (4.20-5.40) 10^6/uL Hgb 12.6 (12.0-16.0) g/dL Hct 36.2 (36.0-48.0) % MCV 86.2 (81.0-99.0) fL MCH 30.0 (26.7-34.0) pg MCHC 34.8 (29.9-35.2) g/dL RDW 14.1 (11.0-15.0) % Plt Count 185 (150-450) 10^3/uL MPV 8.7 L (9.5-13.5) fL Neut % (Auto) 67.3 (43.0-75.0) % Lymph % (Auto) 22.9 (20.5-60.0) % [place] % (Auto) 7.2 (1.7-12.0) % Eos % (Auto) 1.7 (0.9-7.0) % Baso % (Auto) 0.2 (0.2-2.0) % Neut # (Auto) 5.9 (1.4-6.5) 10^3/uL Lymph # (Auto) 2.0 (1.2-3.8) 10^3/uL [place] # (Auto) 0.6 (0.3-0.8) 10^3/uL Eos # (Auto) 0.2 (0.0-0.7) 10^3/uL Baso # (Auto) 0.0 (0.0-0.1) 10^3/uL Abs Immat Gran (auto) 0.06 H (0.00-0.03) 10^3/uL Imm/Tot Granulo (auto) 0.7 H (0.0-0.5) % Sodium 142 (136-145) mmol/L Potassium 4.1 (3.5-5.1) mmol/L Chloride 108 H (98-107) mmol/L Carbon Dioxide 26.0 (21.0-32.0) mmol/L Anion Gap 12.1 BUN 7.0 (7.0-18.0) mg/dL Creatinine 0.32 L (0.55-1.02) mg/dL Est GFR ( Amer) >60 (>=60 mL/min/1.73m^2) Est GFR (Non-Af Amer) >60 (>=60 mL/min/1.73m^2) BUN/Creatinine Ratio 21.9 Glucose 74 (74-106) mg/dL Uric Acid 3.0 (2.6-6.0) mg/dL Calcium 8.8 (8.5-10.1) mg/dL Total Bilirubin 0.3 (0.2-1.0) mg/dL Direct Bilirubin 0.1 (0.0-0.2) mg/dL AST 12 L (15-37) U/L ALT 20 (14-59) U/L Alkaline Phosphatase 47 (46-116) U/L Total Protein 6.4 (6.4-8.2) g/dL Albumin 3.1 L (3.4-5.0) g/dL Globulin 3.3 g/dL Albumin/Globulin Ratio 0.9 Urine Color Lt. yellow (YELLOW) Urine Clarity Clear (CLEAR) Urine pH 6.0 (5.0-9.0) Ur Specific [place] 1.015 (1.005-1.025) Urine Protein Negative (NEG/TRACE) mg/dL Urine Glucose (UA) Negative (NEGATIVE) mg/dL Urine Ketones Negative (NEGATIVE) mg/dL Urine Occult Blood Negative (NEGATIVE) Urine Nitrite Negative (NEGATIVE) Urine Bilirubin Negative (NEGATIVE) Urine Urobilinogen 1.0 (0.2-1.0) EU/dL Ur Leukocyte Esterase Small A (NEGATIVE) Urine RBC 0-2 (0-2) #/HPF Urine WBC 0-2 A (NONE SEEN) #/HPF Ur Squamous Epith Cells Few A (NONE/RARE) #/LPF Urine Crystals None seen (None Seen) #/HPF Urine Bacteria Moderate A (NONE SEEN) #/HPF Urine Casts None seen (NONE SEEN) #/LPF Urine Mucus Trace A (NONE SEEN) Ur Culture Indicated? Yes-[facility] [place] ECG Data Attestation: I personally reviewed and interpreted this ECG as follows: (EKG on my interpretation shows normal sinus rhythm with a rate of 64 and no acute change) Discharge Plan Discharge Chief Complaint: Headache Clinical Impression: Edema, peripheral Patient Disposition: Home, Self-Care Time of Disposition Decision: 13:37 Condition: Good Mode of Transportation: Private Vehicle Prescriptions / Home Meds: No Action docusate sodium 100 mg capsule 100 mg PO DAILY lamotrigine 200 mg tablet 200 mg PO DAILY lansoprazole 30 mg capsule,delayed release(DR/EC) 30 mg PO DAILY levothyroxine 50 mcg tablet 50 mcg PO DAILY quetiapine 25 mg tablet 25 mg PO .qhs sertraline 25 mg tablet 25 mg PO DAILY Pro Fe 180 mg iron capsule 180 mg PO BID Print Language: Mongolian Instructions: Leg Edema (ED) Additional Instructions: Elevate your legs. Follow-up with Dr. Martinez. Return to ED for worsening sym ptoms. Referrals: NAVIN HEWITT [Primary Care Provider, Unknown] - 1 week
[2024-11-30 12:33] LABS: Hematocrit 36.2 % (36.0-48.0); Hemoglobin 12.6 g/dL (12.0-16.0); Immature Granulocytes Abs Auto 0.06 10^3/uL (0.00-0.03); Immature Granulocytes Pct Auto 0.7 % (0.0-0.5); Lymphocytes Absolute Auto 2.0 10^3/uL (1.2-3.8); Mean Corpuscular HGB Conc 34.8 g/dL (29.9-35.2); Mean Corpuscular Hemoglobin 30.0 pg (26.7-34.0); Mean Corpuscular Volume 86.2 fL (81.0-99.0); Platelet Count 185 10^3/uL (150-450); Red Blood Count 4.20 10^6/uL (4.20-5.40); White Blood Count 8.7 10^3/uL (4.0-11.0)
[2024-11-30 12:47] LABS: Alanine Aminotransferase 20 U/L (14-59); Albumin Globulin Ratio 0.9; Albumin Level 3.1 g/dL (3.4-5.0); Alkaline Phosphatase 47 U/L (46-116); Anion Gap 12.1; Aspartate Amino Transferase 12 U/L (15-37); Blood Urea Nitrogen 7.0 mg/dL (7.0-18.0); Calcium 8.8 mg/dL (8.5-10.1); Carbon Dioxide 26.0 mmol/L (21.0-32.0); Chloride 108 mmol/L (98-107); Estimated GFR (African America >60 (>=60 mL/min/1.73m^2); Estimated GFR (Non-African Ame >60 (>=60 mL/min/1.73m^2); Globulin 3.3 g/dL; Glucose 74 mg/dL (74-106); Potassium 4.1 mmol/L (3.5-5.1); Sodium 142 mmol/L (136-145); Total Protein 6.4 g/dL (6.4-8.2)
[2024-11-30 12:57] LABS: Uric Acid 3.0 mg/dL (2.6-6.0)
[2024-11-30 13:25] LABS: Glucose Urine UA NEGATIVE (NEGATIVE)
[2024-11-30 13:35] LABS: Cast Seen? NONE SEEN #/LPF (NONE SEEN); Crystals Seen? None Seen #/HPF (None Seen); Urine Culture Indicated YES-FRMC
== END 2024-11-30 13:45 | disposition home or self-care (01) ==
PROVIDERS: Emergency Provider Emergency Medicine; PCP Nurse Practitioner Family
DX: O26.892 Other specified pregnancy related conditions, second trimester (principal); Z3A.19 19 weeks gestation of pregnancy; R60.0 Localized edema; R51.9 Headache, unspecified
CPT/HCPCS: 36415; 80048; 80076; 81001; 84550; 85025; 87086; 93005; 99284

== ENCOUNTER 2024-12-01 14:21 | Emergency (ER) | payer MEDICAID, SELFPAY ==
[2024-12-01 14:26] VITALS: BP 132/79; PULSE 75; O2SAT 98; BMI 35.6
--- OUTSIDE RECORDS SUMMARY | 2024-12-01 14:29 | XMS_ITS | CCD ---
Author Organization [facility] Care Team Providers Care Undercover Operator Name Role Phone Robin Appiah Primary Care Provider [phone] MACKENZIE BRITO Referring Unavailable ROBIN APPIAH Primary Care Unavailable RASHARD OLIVERA Referring Unavailable ROBIN APPIAH Primary Care Unavailable RASHARD OLIVERA Referring Unavailable ROBIN APPIAH Primary Care Unavailable RASHARD OLIVERA Admitting Unavailable RASHARD OLIVERA Attending Unavailable RBOIN APPIAH Primary Care Unavailable ROBIN APPIAH Primary Care Unavailable ROBIN APPIAH Primary Care Physician Amanda Ford Unavailable MD Robin Appiah Primary Care Provider [phone] MELY Frod Attending Provider MELY Ford Primary Care Provider DO Jack Easton Emergency Provider MARYSOL Jett Emergency Provider [phone] MD Lashonda Farhad Admit Provider MD Lashonda Farhad Attending Provider [phone] MELY Ford Attending Provider SHARRON Jefferson Attending Provider [phone] Petr Lay Unavailable Romeo Santana Unavailable MELY Ford Primary Care Provider DO Romeo Santana Attending Provider Rohrbacher FIRE RANGE TECHNICIAN, Amanda A Primary Care Provider Unavailable Rohrbacher CARDROOM SUPERVISORAmanda Agrawal Primary Care Provider Romeo Santana DO Attending Provider [phone] Logan FIRE RANGE TECHNICIAN, Amanda Agustin Primary Care Provider Unavailable Primary Care Provider Unavailabl e DAVID, SHELLY G Referring Unavailable Unavailable Primary Care Provider Unavailabl e SAÚL ENRIQUEZ Attending Unavailable Merylrbacher FIRE RANGE TECHNICIAN, Amanda Agustin Primary Care Provider DAVID, SHELLY G Referring Unavailable DAVID, SHELLY G Attending Unavailable DAVID, SHELLY G Referring Unavailable ATTARAN, IGNACIO Attending Unavailable DAVID, SHELLY G Attending Unavailable SELF Referring Unavailable DUDZIAK, DANIEL Referring Unavailable DAVID, SHELLY G Referring Unavailable SELF Referring Unavailable ATTARAN, IGNACIO Attending Unavailable DUDZIAK, DANIEL Referring Unavailable ATTARAN, IGNACIO Referring Unavailable DUDZIAK, DANIEL Referring Unavailable FEMITIBMIKEY HERNÁNDEZ Attending Unav ailable DUDZIAK, DANIEL Referring Unavailable [...] Unavailable JUAN, LES R Attending Unavailable Rohrbacher CARDROOM SUPERVISOR, Amanda Primary Care Provider Kassidy Arriaza DO Emergency Provider [phone] No Pcp, No Pcp Primary Care Provider Unavailangeles e Romeo Santana Attending Unavailable Amanda Ford Primary Care Unavailable Romeo Santana Admitting Unavailable Amanda Ford Primary Care Unavailable Kassidy Arriaza Admitting Unavailable Kassidy Arriaza Attending Unavailable Romeo Santana Admitting Unavailable Romeo Santana Attending Unavailable Amanda Ford Primary Care Unavailable DARLEEN SINCLAIR Attending Unavailable LAUREN SINCLAIRMAAri F Referring Unavailable LES MARTINEZ Attending Unavailable LES MARTINEZ Attending Unavailable LES MARTINEZ Attending Unavailable LES MARTINEZ Attending Unavailable Chris Dickerson DO Attending Provider Les Martinez DO Attending Provider [phone] Allergies Allergy Classification Reported Allergen(s) Allergy Type Date of Onset Reaction(s) Facility (20 sources) Non-steroidal anti-inflammato ry agent Drug allergy Unknown W-21 Other (17 sources) Non-steroidal anti-inflammato ry agent; Translations: [NSAIDs] Drug Allergy 3 Unknown [facility] (1 source) ALLERGIES NOT ON FILE; Translations: [ALLERGIES NOT ON FILE] Propensity to adverse reactions (disorder) [facility] 3 Repository (2 sources) NSAIDs Propensity to adverse reactions [facility] drug [facility] ([facility]) NSAIDs Drug allergy (disorder) 5 [facility] Repository Medications Current Medications Medication Drug Class(es) [...] bedtime) for sleep, 60 tab(s), Refill(s) 2, [facility], 182, cm, 07/09/19 13:03:00 EDT, [...] anxiety, # 60 tab(s), Refills(s) 1, Pharmacy: [facility], 182, cm, 12/06/19 12:03:00 EDT, [...] hydrochloride 150 mg extended release oral tablet (14 sources) Aminoketone Start: 04-26-2024 take 1 tablet by mouth once daily End: 10-22-2024 take 1 tablet by mouth once daily buPROPion XL (Wellbutrin XL) 150 MG 24 hr tablet Take 150 mg by mouth Daily Do not crush, chew, or split. 10/22/2024 Discontinued calcium chloride 0.0014 meq/ml / potassium chloride [...] NEEDED FOR CONSTIPATION Start: 06-17-2022 End: 04-16-2024 take 1 capsule by mouth once daily Docusate Sodium 100 mg capsule Discontinued 100 MG PO Daily 60 April 16, 2024 1:00am April 16, 2024 9:58am Start: 06-11-2022 End: 12-07-2023 take 1 capsule [...] QID, # 60 tab(s), Refills(s) 2, Pharmacy: [facility] Start Date: 10/09/18 Status: Ordered lamoTRIgine 200 mg oral tablet (20 sources) Mood Stabilizer, Anti-epileptic Agent Start: 04-10-2022 Lamotrigine Active MG TABLET April 10, 2022 12:00am Start: 01-30-2020 lamotrigine 20 0 mg Tab 300 mg = 1.5 tab(s), Oral, Daily, # 45 tab(s), Refills(s) 5, Pharmacy: [facility], 182, cm, 12/06/19 12:03:00 EDT, Height/Length Dosing, 200.7, kg, 11/28/19 9:08:00 EDT, Weight Dosing Start Date: 01/30/20 Status: Ordered Start: 10-04-2018 End: 10-22-2024 take 1 tablet by mouth once daily at bedtime Lamotrigine 200 mg tablet Discontinued 200 MG PO Daily at bedtime October 08, 2019 12:00am August 01, 2021 2:19pm LaMICtal 200 MG tablet 1.5 tabs Active levothyroxine sodium 0.05 mg oral tablet (20 sources) l-Thyroxine Start: 02-24-2024 End: 08-17-2025 take 1 tablet by mouth once daily Start: 10-13-2023 End: 04-26-2024 take 1 capsule [...] Start: 09-03-2018 take 1 tablet by ashley once daily levothyroxine 175 mcg (0.175 mg) [...] qPM, # 90 tab(s), Refills(s) 2, Pharmacy: [facility], 182, cm, 12/06/19 12:03:00 EDT, [...] mg oral capsule (20 sources) Start: 04-23-2024 take 1 capsule by mouth twice daily at bedtime ProFe 391.3 (180 Fe) MG capsule Indications: Other iron deficiency anemia TAKE 1 CAPSULE BY MOUTH TWICE DAILY IN THE MORNING AND BEFORE BEDTIME 60 capsule 3 11/06/2024 Active Start: 12-07-2023 End: 04-23-2024 take 1 capsule by mouth once daily Polysaccharide Iron Complex (Pro Fe) 180 mg iron capsule Discontinued 180 MG PO Daily December 07, 2023 12:00am April 23, 2024 3:52pm take 2 capsules by m outh twice daily Polysaccharide Iron Complex (PRO FE) 180 mg iron cap Take 2 capsules by mouth two times a day. Active [id number] acid ( 19) 29 mg iron- 1 mg tablet,chewable (2 sources) [id number]-plxgb acid ( 19) 29 mg iron- 1 [...] Start: 03-12-2020 take 2 tablets by mo uth at bedtime quetiapine 50 mg oral tablet 100 mg = 2 tab(s), Oral, Bedtime, # 60 tab(s), Refills(s) 5, Pharmacy: [facility], 182, cm, 12/06/19 12:03:00 EDT, [...] food, # 60 cap(s), Refills(s) 2, Pharmacy: [facility], 182, cm, 12/06/19 12:03:00 EDT, [...] (PF) (MARCAINE) 0.5 % injection 200 mg busPIRone hydrochloride 15 mg oral tablet (20 sources) Start: 04-10-2022 End: 06-03-2023 take 1 tablet by mouth [...] 10, 2022 1:00am June 10, 2022 6:28pm ceFAZolin (ANCEF) 3 g in dextrose 5 [...] Discontinued diclofenac sodium 0.01 mg/mg topical gel (16 sources) Nonsteroidal Anti-inflammatory Drug Start: 11-28-2023 End: [...] D2) 1,250 mcg (50,000 unit) capsule Discontinued 90394 UNIT PO every week October 08, 2019 12:00am August 01, 2021 2:19pm Takes on Tuesday Start: 05-25-2019 Vitamin D2 200 0 intl units oral capsule Refills(s) 0 Start Date: 05/25/19 Status: Ordered Start: 01-12-2019 End: 05-08-2020 take 1 capsule by mouth every week vitamin D (ERGOCALCIFEROL) 90692 units CAPS capsule Indications: Vitamin D deficiency [...] tablet (20 sources) Start: 01-30-2020 End: 10-22-2024 take 1 tablet by mouth once daily Ferrous Sulfate 325 mg (65 mg iron) tablet Discontinued 325 MG PO Daily June 11, 2022 1:00am August 29, 2023 11:07am gabapentin 300 mg oral capsule (1 source) [...] mg oxyCODONE hydrochloride 5 mg oral tablet (15 sources) Opioid Agonist Start: 12-09-2023 End: 12-20-2023 [...] CLEANUP) traMADol hydrochloride 50 mg oral tablet (15 sources) Opioid Agonist Start: 12-07-2023 End: 01-17-2024 [...] Translations: [Counseling, unspecified] 05-07-2024 Episodic Allergic reactions (4 sources) Acute urticaria; Translations: [Other urticaria] 04-26-2024 [...] 4 03-08-2024 Episodic Deficiency and other anemia (18 sources) Anemia; Translations: [Anemia, unspecified] 06-10-2022 Episodic [...] 4 11-28-2023 Chronic Fever of unknown origin (15 sources) Fever; Translations: [Fever, unspecified] 06-08-2023 Episodic Genitourinary symptoms and ill-defined conditions (2 sources) Painful micturition, unspecified; Translations: [Other microscopic hematuria] Episodic Hemorrhage during ; abruptio placenta; placenta previa (3 sources) Bleeding from female genital tract during [...] Onset: 9 12-05-2018 Chronic Nausea and vomiting (15 sources) Vomiting; Translations: [Vomiting, unspecified] 06-08-2023 Episodic [...] of ligament] Episodic Other connective tissue disease (13 sources) Laxity of ligament; Translations: [Disorder of ligament, unspecified site] 10-12-2023 Episodic Comment on above: right shoulder Other connective tissue disease (4 sources) Bilateral plantar fasciitis; Translations: [Plantar fasciitis, bilateral] Onset: 9 12-05-2018 Other female genital disorders (20 sources) Abnormal uterine bleeding; Translations: [Other specified abnormal uterine and vaginal bleeding] 04-10-2022 Chronic Other gastrointestinal disorders (14 sources) Constipation; Translations: [Constipation, unspecified] 06-08-2023 Episodic [...] chronic pain] Chronic Other nervous system disorders (11 sources) Carpal tunnel syndrome of right wrist; Translations: [Carpal tunnel syndrome, right upper limb] 11-01-2023 Chronic Other nervous system disorders (20 sources) Carpal tunnel syndrome, right upper limb; Translations: [Carpal tunnel syndrome] Onset: 11-01-2023 Chronic Other nervous system disorders (1 source) Postoperative pain ; Translations: [Post-op pain] Episodic Other nervous system disorders (13 sources) Numbness of hand; Translations: [Anesthesia of [...] shoulder region] Episodic Other non-traumatic joint disorders (13 sources) Instability of right shoulder joint; Translations: [...] slee p study 2009 Residual codes; unclassified (14 sources) Chill; Translations: [Chills (without fever)] 06-08-2023 Episodic Residual codes; unclassified (16 sources) History of sleeve gastrectomy; Translations: [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]] 06-08-2023 Episodic Comment on above: April 2020 Residual codes; unclassified (1 source) Chills (without fever); Translations: [Chills (without fever)] 06-08-2023 Episodic Residual codes; unclassified (1 source) 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]; Translations: [Personal history of surgery to other organs] 06-08-2023 Episodic Residual codes; unclassified (8 sources) History of arthroscopic procedure on shoulder; [...] Abscess; Translations: [Cutaneous abscess, unspecified] 08-01-2021 Episodic Sprains and strains (20 sources) Strain of unspecified muscle, fascia and tendon at shoulder and upper arm level, right arm, initial encounter; Translations: [Strain of other muscles, fascia and tendons at shoulder and upper arm level, right arm, initial encounter] Onset: 4 Episodic Substance-related disorders (4 sources) Marijuana user; [...] nicotine dependence Onset: 07-16-2021 Resolved: 07-16-2021 Episodic NEGATED: Highlighted row has been ruled out!Unclassified (1 source) No known active problems 08-20-2024 Results Test Name Value Interpretation Reference Range Facility Basophils Auto (Bld) [#/Vol] Ordered By: Chris Dickerson on 11-30-2024 Basophils (Bld) [#/Vol] 0.0 10 3/uL 0.0-0.1 [facility] Basophils/100 WBC Auto (Bld) Ordered By: Chris Dickerson on 11-30-2024 Basophils/100 WBC (Bld) 0.2 % 0.2-2.0 [facility] Eosinophils/100 WBC Auto (Bl d)Ordered By: Chris Dickerson on 11-30-2024 Eosinophils/100 WBC (Bld) 1.7 % 0.9-7.0 [facility] Erythrocyte distribution wid th Auto (RBC) [Ratio]Ordered By: Chris Dickerson on 11-30-2024 Erythrocyte distribution width (RBC) [Ratio] 14.1 % 11.0-15.0 [facility] Globulin Calc (S) [Mass/Vol] Ordered By: Chris Dickerson on 11-30-2024 Globulin (S) [Mass/Vol] 3.3 g/dL [facility] Glomerular filtration rate ( GFR) estimation in non- AmericanOrdered By: Chris Dickerson on 11-30-2024 GFR/1.73 sq M.predicted among non-blacks MDRD (S/P/Bld) [Vol rate/Area] mL/min/{1.73_m2} >=60 mL/min/1.73m 2 [facility] Hematocrit Auto (Bld) [Volum e fraction]Ordered By: Chris Dickerson on 11-30-2024 Hematocrit (Bld) [Volume fraction] 36.2 % 36.0-48.0 [facility] Hemoglobin [Mass/volume] in BloodOrdered By: Chris Dickerson on 11-30-2024 Hemoglobin (Bld) [Mass/Vol] 12.6 g/dL 12.0-16.0 [facility] Laboratory - Chemistry and C hemistry - challengeOrdered By: Chris Dickerson on 11-30-2024 Bilirubin Ql (U) Negative NEGATIVE [facility] Glucose (U) [Mass/Vol] Negative NEGATIVE [facility] Ketones Ql (U) Negative NEGATIVE [facility] pH (U) 6.0 [pH] 5.0-9.0 [facility] Specific gravity (U) [Rel density] 1.015 1.005-1.025 [facility] Urobilinogen Qn (U) 1.0 {Fabián'U}/dL 0.2-1.0 [facility] Albumin [Mass/Vol] 3.1 g/dL Low 3.4-5.0 [facility] ALP [Catalytic activity/Vol] 47 U/L 46-116 [facility] ALT [Catalytic activity/Vol] 20 U/L 14-59 [facility] AST [Catalytic activity/Vol] 12 U/L Low 15-37 [facility] Bilirubin [Mass/Vol] 0.3 mg/dL 0.2-1.0 [facility] Bilirubin.direct [Mass/Vol] 0.1 mg/dL 0.0-0.2 [facility] Calcium [Mass/Vol] 8.8 mg/dL 8.5-10.1 [facility] Chloride [Moles/Vol] 108 mmol/L High 98-107 [facility] CO2 [Moles/Vol] 26.0 mmol/L 21.0-32.0 [facility] Creatinine [Mass/Vol] 0.32 mg/dL Low 0.55-1.02 [facility] GFR/1.73 sq M.predicted MDRD (S/P/Bld) [Vol rate/Area] mL/min/{1.73_m2} >=60 mL/min/1.73m 2 [facility] Glucose [Mass/Vol] 74 mg/dL 74-106 [facility] Potassium [Moles/Vol] 4.1 mmol/L 3.5-5.1 [facility] Protein [Mass/Vol] 6.4 g/dL 6.4-8.2 [facility] Sodium [Moles/Vol] 142 mmol/L 136-145 [facility] Urate [Mass/Vol] 3.0 mg/dL 2.6-6.0 [facility] Urea nitrogen [Mass/Vol] 7.0 mg/dL 7.0-18.0 [facility] Urea nitrogen/Creatinine [Mass ratio] 21.9 mg/mg [facility] Laboratory - Hematology and Cell countsOrdered By: Chris Dickerson on 11-30-2024 Immature granulocytes/100 WBC (Bld) 0.7 % High 0.0-0.5 [facility] Laboratory - Specimen inform ationOrdered By: Chris Dickerson on 11-30-2024 Appearance (U) CLEAR CLEAR [facility] Color (U) LT. YELLOW YELLOW [facility] Laboratory - UrinalysisOrder ed By: Chris Dickerson on 11-30-2024 Leukocyte esterase Test strip Ql (U) SMALL Abnormal NEGATIVE [facility] Mucus Ql (Urine sed) TRACE Abnormal NONE SEEN [facility] Nitrite Ql (U) Negative NEGATIVE [facility] Protein Ql (U) Negative NEG/TRACE [facility] Leukocytes [#/volume] correc terry for nucleated erythrocytes in Blood by Automated counOrdered By: Chris Dickerson on 11-30-2024 WBC corrected for nucl RBC Auto (Bld) [#/Vol] 8.7 10 3/uL 4.0-11.0 [facility] Lymphocytes Auto (Bld) [#/Vo l]Ordered By: Chris Dickerson on 11-30-2024 Lymphocytes (Bld) [#/Vol] 2.0 10 3/uL 1.2-3.8 [facility] Lymphocytes/100 WBC Auto (Bl d)Ordered By: Chris Dickerson on 11-30-2024 Lymphocytes/100 WBC (Bld) 22.9 % 20.5-60.0 [facility] MCH Auto (RBC) [Entitic mass ]Ordered By: Chris Dickerson on 11-30-2024 MCH (RBC) [Entitic mass] 30.0 pg 26.7-34.0 [facility] MCHC Auto (RBC) [Mass/Vol]Or dered By: Chris Dickerson on 11-30-2024 MCHC (RBC) [Mass/Vol] 34.8 g/dL 29.9-35.2 [facility] MCV Auto (RBC) [Entitic vol] Ordered By: Crhis Dickerson on 11-30-2024 MCV (RBC) [Entitic vol] 86.2 fL 81.0-99.0 [facility] Monocytes Auto (Bld) [#/Vol] Ordered By: Chris Dickerson on 11-30-2024 Monocytes (Bld) [#/Vol] 0.6 10 3/uL 0.3-0.8 [facility] Monocytes/100 WBC Auto (Bld) Ordered By: Chris Dickerson on 11-30-2024 Monocytes/100 WBC (Bld) 7.2 % 1.7-12.0 [facility] Neutrophils Auto (Bld) [#/Vo l]Ordered By: Chris Dickerson on 11-30-2024 Neutrophils (Bld) [#/Vol] 5.9 10 3/uL 1.4-6.5 [facility] Neutrophils/100 WBC Auto (Bl d)Ordered By: Chris Dickerson on 11-30-2024 Neutrophils/100 WBC (Bld) 67.3 % 43.0-75.0 [facility] No Panel InformationOrdered By: Chris Dickerson on 11-30-2024 Urine Bacteria MODERATE #/HPF Abnormal NONE SEEN [facility] Urine Culture Reflexed YES-[facility] Urine Occult Blood Negative NEGATIVE [facility] Urine Other Casts NONE SEEN #/LPF NONE SEEN [facility] Urine Other Crystals None Seen #/HPF None Seen [facility] Urine RBC 0-2 #/HPF 0-2 [facility] Urine Squamous Epithelial Cells FEW #/LPF Abnormal NONE/RARE [facility] Urine WBC 0-2 #/HPF Abnormal NONE SEEN [facility] Eosinophils # (Auto) 0.2 10 3/uL 0.0-0.7 [facility] Immature Granulocyte # (Auto) 0.06 10 3/uL High 0.00-0.03 [facility] Platelet mean volume Auto (B ld) [Entitic vol]Ordered By: Chris Dickerson on 11-30-2024 Platelet mean volume (Bld) [Entitic vol] 8.7 fL Low 9.5-13.5 [facility] Platelets Auto (Bld) [#/Vol] Ordered By: Chris Dickerson on 11-30-2024 Platelets (Bld) [#/Vol] 185 10 3/uL 150-450 [facility] RBC Auto (Bld) [#/Vol]Ordere d By: Chris Dickerson on 11-30-2024 RBC (Bld) [#/Vol] 4.20 10 6/uL 4.20-5.40 [facility] Serum or plasma albumin/glob ulin mass ratioOrdered By: Chris Dickerson on 11-30-2024 Albumin/Globulin [Mass ratio] 0.9 {ratio} [facility] Serum or plasma anion gap de terminationOrdered By: Chris Dickerson on 11-30-2024 Anion gap [Moles/Vol] 12.1 mmol/L [facility] RECURRENT VAGINITIS (HTRX)on 11-21-2024 ATOPOBIUM VAGINAE 0 [facility] ATOPOBIUM VAGINAE Not detected [facility] BVAB 2,3 (BACTERIAL VAGINOSIS ASSOCIATED BACTERIA 2, 3); MOBILUNCUS SPP 0 [facility] BVAB 2,3 (BACTERIAL VAGINOSIS ASSOCIATED BACTERIA 2, 3); MOBILUNCUS SPP Not detected [facility] GLORIA ALBICANS, PARAPSILOSIS, TROPICALIS 0 [facility] GLORIA ALBICANS, PARAPSILOSIS, TROPICALIS Not detected [facility] GLORIA GLABRATA 0 [facility] GLORIA GLABRATA Not detected [facility] GLORIA KRUSEI 0 [facility] GLORIA KRUSEI Not detected [facility] CHLAMYDIA TRACHOMATIS 0 [facility] CHLAMYDIA TRACHOMATIS Not detected [facility] GARDNERELLA VAGINALIS 0 [facility] GARDNERELLA VAGINALIS Not detected [facility] MEGASPHAERA (TYPES 1, 2) 0 [facility] MEGASPHAERA (TYPES 1, 2) Not detected [facility] MYCOPLASMA GENITALIUM 0 [facility] MYCOPLASMA GENITALIUM Not detected [facility] NEISSERIA GONORRHOEAE 0 [facility] NEISSERIA GONORRHOEAE Not detected [facility] TRICHOMONAS VAGINALIS 0 [facility] TRICHOMONAS VAGINALIS Not detected [facility] ALL THYROID STIM HORMONEon 0 11-20-2024 TSH Qn 1.702 m[IU]/L [facility] Alpha-fetoprotein (AFP) kelly urement ([id number])Ordered By: Les Martinez on 11-20-2024 AFP [MoM] 0.87 . [facility] Assess gestational ageOrdere d By: Les Martinez on 11-20-2024 Gestational age 18.0 weeks . [facility] Estimation of maternal age-s pecific risk of Down syndrome birthOrdered By: Les Martinez on 11-20-2024 [age] [Time] 30.1 yr . [facility] Insulin dependent diabetes m ellitus detectionOrdered By: Les Martinez on 11-20-2024 Insulin dependent diabetes mellitus Ql No . [facility] Interpretation of serum or p lasma second trimester quad maternal screen (narrative reOrdered By: Les Martinez on 11-20-2024 Second trimester quad maternal screen Gonzales [Interp] Comment . [facility] Comment on above: Interpretation: Scre en NegativeThis result is screen negative for OSB. The AFP MoMcalculated is based on the gestational age provided. MS-AFPcan identify up to 80% of open neural tube defects.Closed neural tube defects and some open defects may not bedetected by this test. This test does not screen for fetalDown Syndrome or Trisomy 18. If screening for Down Syndromeor Trisomy 18 is desired, contact [facility] [employer] to discuss available options. The AmericanCollege of Obstetricians and Gynecologists recommendsamniocentesis be offered to women age 35 and older. Second trimester quad maternal screen Gonzales [Interp] Negative . [facility] Laboratory - Chemistry and C hemistry - challengeOrdered By: Les Martinez on 11-20-2024 TSH Qn 1.702 m[IU]/L 0.358-3.740 [facility] No Panel InformationOrdered By: Les Martinez on 11-20-2024 AFP Triple Screen Comment Comment . [facility] Comment on above: Gisel Gandhi , Ph.D., DABCCDirectorReferences: Available Upon Request.Multiples Of Median Cutoffs For AFP ElevationsSingleton 2.5 Black 2.8IDD 2.0 Twins 4.5 Abbreviation DefinitionsIDD - Insulin Dep DiabetesOSBR - Open Spina Bifida RiskFor further inquiries contact [facility] at [phone].This test was developed and its performance characteristicsdetermined by 1234ENTER. It has not been cleared or approvedby the Food and Drug Administration.Performed at: [facility] [employer] [id number] [place], [place] [id number] Director: Lorena Ellis [facility], Phone: [phone] Alpha Fetoprotein Results Received Report . [facility] Gestational Age Calculation Method Ultrasound . [facility] Comment on above: 18.0 on 11/20/2024Re calculations are not recommended when gestational datingby LMP and ultrasound are within 10 days. Maternal Quad Test Risk [address] . [facility] Maternal Race Other . [facility] Multiple No . [facility] Serum or plasma brzme-6-sfmz protein measurement (mass/volume)Ordered By: Les Martinez on 11-20-2024 AFP [Mass/Vol] 27.6 ng/mL . [facility] Urinalysis macro (dipstick) panel (U)on 11-20-2024 Bilirubin, UA Negative Negative - 4(70) +++ mg/dL [facility] Blood, UA Negative Negative - 50 Yehuda/mcL [facility] Clarity, UA Clear [facility] Color, UA Yellow [facility] Glucose, UA Negative Negative - 1999(110) ++++ mg/dL [facility] Interpretation and review of laboratory results Abnormal [facility] Ketones, UA Negative Negative - 160(16) ++++ mg/dL [facility] Leukocytes, UA 2+ Negative - 500+++ Kourtney/mcL [facility] Nitrite, UA Negative Negative - Positive [facility] pH, UA 8 5 - 9 [facility] Protein, UA Negative Negative - 1999(20) ++++ mg/dL [facility] Spec Grav, UA 1.01 1 - 1.03 [facility] Urobilinogen, UA 1.0 0.2 - 12 mg/dL [facility] [place] [facility] Laboratory - Chemistry and C hemistry - challengeOrdered By: Chris Dickerson on 11-17-2024 Bilirubin Ql (U) Negative NEGATIVE [facility] Glucose (U) [Mass/Vol] Negative [facility]IVE [facility] Ketones Ql (U) Negative NEGATIVE [facility] pH (U) 7.5 [pH] 5.0-9.0 [facility] Specific gravity (U) [Rel density] 1.010 1.005-1.025 [facility] Urobilinogen Qn (U) 1.0 {Fabián'U}/dL 0.2-1.0 [facility] Laboratory - Specimen inform ationOrdered By: Chris Dickerson on 11-17-2024 Appearance (U) CLEAR CLEAR [facility] Color (U) LT. YELLOW YELLOW [facility] Laboratory - UrinalysisOrder ed By: Chris Dickerson on 11-17-2024 Leukocyte esterase Test strip Ql (U) Negative NEGATIVE [facility] Mucus Ql (Urine sed) NONE SEEN NONE SEEN [facility] Nitrite Ql (U) Negative NEGATIVE [facility] Protein Ql (U) Negative NEG/TRACE [facility] No Panel InformationOrdered By: Chris Dickerson on 11-17-2024 Urine Bacteria TRACE #/HPF Abnormal NONE SEEN [facility] Urine Culture Reflexed NO [facility] Urine Occult Blood Negative NEGATIVE [facility] Urine Other Casts NONE SEEN #/LPF NONE SEEN [facility] Urine Other Crystals None Seen #/HPF None Seen [facility] Urine RBC NONE SEEN #/HPF 0-2 [facility] Urine Squamous Epithelial Cells RARE #/LPF NONE/RARE [facility] Urine WBC NONE SEEN #/HPF NONE SEEN [facility] Ultrasound - Officeon 2024 Radiology Study observation (narrative) [facility] Urinalysis macro (dipstick) panel (U)on 10-22-2024 Bilirubin, UA Negative Negative - 4(70) +++ mg/dL [facility] Blood, UA Negative Negative - 50 Yehuda/mcL [facility] Clarity, UA Clear [facility] Color, UA Yellow [facility] Glucose, UA Negative Negative - 2000(110) ++++ mg/dL [facility] Interpretation and review of laboratory results Normal [facility] Ketones, UA Negative Negative - 160(16) ++++ mg/dL [facility] Leukocytes, UA Negative Negative - 500+++ Kourtney/mcL [facility] Nitrite, UA Negative Negative - Positive [facility] pH, UA 7 5 - 9 [facility] Protein, UA Negative Negative - 2000(20) ++++ mg/dL [facility] Spec Grav, UA 1.01 1 - 1.03 [facility] Urobilinogen, UA 1.0 0.2 - 12 mg/dL [facility] Appearance of UrineOrdered B y: Kassidy Arriaza on 10-18-2024 Appearance (U) Clear Clear [facility] Comment on above: Order Comment: Name Collection Type:: Clean-Voided Midstream Performed By: #### U A, CUU #### [address] Bilirubin Test strip Ql (U)O rdered By: Kassidy Arriaza on 10-18-2024 Bilirubin Ql (U) Negative Negative [facility] Chlamydia/GC Amplificationon 10-18-2024 Chlamydia Trachomotis, AC Negative Normal Negative [facility] Comment on above: Order Comment: SOURC E OF SPECIMEN: Genital Performed By: #### G CCHLAMAMP #### [facility] , #### CUGEN #### [address] Neisseria Gonorrhoeae, AC Negative Normal Negative [facility] Comment on above: Order Comment: SOURC E OF SPECIMEN: Genital Result Comment: Perf ormed at: =G - [facility] [address] [id number] Operations Business Partner: Dagmar Love MD, Phone: [phone] PERFORMED BY: [place] [address] PATHOLOGIST FITNESS MANAGER DAMIÁN DOSHI M.D. Performed By: #### G CCHLAMAMP #### [facility] , #### CUGEN #### [address] Color of Urine by AutoOrdere d By: Kassidy Arriaza on 10-18-2024 Color (U) Colorless Yellow [facility] Comment on above: Order Comment: Name Collection Type:: Clean-Voided Midstream Performed By: #### U A, CUU #### [place] [address] [place] Genital Cultureon 10-18-2024 Genital Culture Genital Results Light Normal Urogenital Damián 2 Days No More GC Specimen not tested for Neisseria gonorrheae PERFORMED BY: [place] [address] PATHOLOGIST FITNESS MANAGER DAMIÁN DOSHI M.D. Normal [facility] Comment on above: Performed By: #### G CCHLAMAMP #### [facility] , #### CUGEN #### [facility] [address] [place] [address] Genital specimen bacteria id entification by aerobic cultureOrdered By: Kassidy Arriaza on 10-18-2024 Bacteria identified Aer cx Nom (Genital specimen) [facility] Glucose [Mass/volume] in Uri ne by Test stripOrdered By: Kassidy Arriaza on 10-18-2024 Glucose Test strip (U) [Mass/Vol] Normal mg/dL Normal [facility] Hemoglobin Test strip Ql (U) Ordered By: Kassidy Arriaza on 10-18-2024 Hemoglobin Ql (U) Negative Negative [facility] Ketones [Presence] in Urine by Test stripOrdered By: Kassidy Arriaza on 10-18-2024 Ketones Ql (U) Trace High Negative [facility] Comment on above: Order Comment: Name Collection Type:: Clean-Voided Midstream Performed By: #### U A, CUU #### [address] Laboratory - Microbiology an d Antimicrobial susceptibilityOrdered By: Kassidy Arriaza on 10-18-2024 C. trachomatis DNA AC+probe Ql (Unsp spec) Negative Negative [facility] N. gonorrhoeae DNA AC+probe Ql (Unsp spec) Negative Negative [facility] Comment on above: Performed at: =[address] [id number] Director: Dagmar Love MD, Phone: [phone] Leukocyte esterase [Presence ] in Urine by Test stripOrdered By: Kassidy Arriaza on 10-18-2024 Leukocyte esterase Test strip Ql (U) Negative Negative [facility] Comment on above: Order Comment: Name Collection Type:: Clean-Voided Midstream Performed By: #### U A, CUU #### [facility] [address] [place] [address] Nitrite Test strip Ql (U)Ord ered By: Kassidy Arriaza on 10-18-2024 Nitrite Ql (U) Negative Negative [facility] Protein Test strip (U) [Mass /Vol]Ordered By: Kassidy Arriaza on 10-18-2024 Protein (U) [Mass/Vol] Negative Negative [facility] Specific gravity Test strip (U) [Rel density]Ordered By: Kassidy Arriaza on 10-18-2024 Specific gravity (U) [Rel density] 1.007 1.001-1.030 [facility] US OB <= 14 weeks fetuson US OB <= 14 weeks fetus [facility] [place] [address] Ultrasound Report Signed Patient: Jaz Sanders MR#: [id number] : 1995 Acct:[id number] Age/Sex: 29 / F ADM Date: 10/18/24 Loc: ER Room: Type: [facility] ER Attending Dr: Ordering Provider: Kassidy [...] Jr., D.O. 10/18/2024 2:21 PM Dictation Location: [place] [address] Tech: Natalie Haji Transcribed By: MAITE 10/18/24 1421 Dictated By: Sravan Dickinson Jr, DO 10/18/24 1419 Signed By: 10/18/24 1421 Normal [facility] Unlisted Lab Teston 10-19-19 [employer] [facility] Urinalysison 10-18-2024 Bilirubin,Urine Negative Normal Negative [facility] Comment on above: Order Comment: Name Collection Type:: Clean-Voided Midstream Performed By: #### U A, CUU #### [address] Glucose Ql (U) Normal Normal Normal [facility] Comment on above: Order Comment: Name Collection Type:: Clean-Voided Midstream Performed By: #### U A, CUU #### [place] [address] [place] Nitrite,Urine Negative Normal Negative [facility] Comment on above: Order Comment: Name Collection Type:: Clean-Voided Midstream Performed By: #### U A, CUU #### [place] [address] [place] Occult Blood,Urine Negative Normal Negative [facility] Comment on above: Order Comment: Name Collection Type:: Clean-Voided Midstream Result Comment: PERF ORMED BY: [place] [address] PATHOLOGIST FITNESS MANAGER DAMIÁN DOSHI M.D. Performed By: #### U A, CUU #### [place] [address] [place] Protein,Urine Negative Normal Negative [facility] Comment on above: Order Comment: Name Collection Type:: Clean-Voided Midstream Performed By: #### U A, CUU #### [address] Specificy [place],Urine 1.007 Normal 1.001-1.030 [facility] Comment on above: Order Comment: Name Collection Type:: Clean-Voided Midstream Performed By: #### U A, CUU #### [place] [address] [place] Urobilinogen,Urine Normal Normal Normal [facility] Comment on above: Order Comment: Name Collection Type:: Clean-Voided Midstream Performed By: #### U A, CUU #### [place] [address] [place] Urine Cultureon 10-18-2024 Bacteria identified Cx Nom (U) <9,000 colonies/ml mixed bacterial skin contaminants 2 Days PERFORMED BY: [place] [id number] PATHOLOGIST FITNESS MANAGER DAMIÁN DOSHI M.D. Normal [facility] Comment on above: Performed By: #### U Nikole CUU #### [facility] [address] [id number] [facility] Urine cultureOrdered By: Jemima Arriaza on 10-18-2024 Bacteria identified Cx Nom (U) 2 Days [facility] Urobilinogen Test strip (U) [Mass/Vol]Ordered By: Kassidy Arriaza on 10-18-2024 Urobilinogen (U) [Mass/Vol] Normal mg/dL Normal [facility] pH of Urine by Test stripOrd ered By: Kassidy Arriaza on 10-18-2024 pH (U) 7.0 [pH] 5.0-9.0 [facility] Comment on above: Order Comment: Name Collection Type:: Clean-Voided Midstream Performed By: #### U A, CUU #### [facility] [address] [id number] [facility] Unlisted Lab Teston 10-17-19 [employer] BOX TESTon 10-10-2024 BOX TEST SENT OUT [employer] [facility] [address] [employer] [facility] [address] 10-10-24 [facility] Coding Summaryon 10-02-2024 Coding Summary HTMLBase 64 MkjymokzIUg8zBu+PGhlYWQ +MY3FZXVqA17yzJBewI9vO9 NMTElOSywgQVBQTElOSyIgb xIlSQ4zlIJlHHFx IC8+NP0xOHMbPfpxqXRjd0M 1cLV3X85sdk3fAEltzVV1OW ChYtYbepmoj1sagIp6NOubI mluOyBt ONCwfF13EBY7wU88Wp06eNX heFJia6jquXu3PcBiXYXoPN R7jIsyIJodp9OaIROwT17ew IOoc6N7 JMJmiEvdaPYuLjUvhLS9eY9 cBIysvsrpf6oifwrpMht9ws 70jZYgo7U9eJQ7D7RvffJ1N GJvbGQg EkldgIWAxZ4jgaqog7kvyhe vTrXtEXZdAHr6LHq2ANOuyW vtNnKtNP65KGI3OYYxdeOgI 2FsLWFs vOrmUwS9h4G3Jd9MB9IRCrh dF7SDGWBKIAtrbEB+PC90cj 66A5XjGqxpCdq3ULXrHWQ6u VV7eI0j GOPxNLmzr9Y3hPU7Q7YxuoB nap1wj3myPFYbQBpfJ45qvW Lxn8N7RFXqeEE7NHXxbEqkJ iBzaG93 Oyc+RBTnoZadg7AyHaimz6m vc2drrGm7PzgxATRoyhPjqK vuHPA2g1OxPf3uXAFmvVY2z QC1jJ5t ShOyQmG2KOfbM288PgUgmQO zIgtiR09kB0QvmBD+PHRyPj p5XYSpbLhuRC7zZ7ZzAOEiz mctbGVm hYjjDX0bXTQbaxmxMSErnV6 eCVQaZ3t6TnGiSrL4XCsrA6 RxWNZuncdhBb42lR2fScXwL aF0IMnc U8OdprU2FYJctNZaAPwjWCT 6G47sy2E9MDAuJEXtFQZ9zH X3aU8efRkpqblaiIEyiNats mVydGlj YMbrYVwbC578ZCOlbXaeKwX vZGluZyBEYXRlOiAgMDYvMT cvMjAyNTwvdGQ+VZRqGSA9y WxlPSAn xAGrZGyvIq6hnWxzgMzaEC6 yIDRthuseASQgzQ9xFPFmaK ZuhSwxMK6vWEVpdjdox828D iAxMHB0 RRPciFErT7HehT8qJhWcOJZ iJSDeE5WidKLwTHklT336WF zfTtU3ODMnsaLzF5QwLABqo WduOiB0 w3I4To3Gu2GuongkY5SprIW oDlViHdosEYp7D2HdOxobvJ I+DJ85QOKfUJ81TWn2UOC1g WxlPSdi PAXkC8BwgX8fOgMuWQNoNJU kOyc+PHRhYmxlIHdpZHRoPS xhBDPqZkXwrOfqUV0dOt5vC GVyLWNv sKwwtMYvIeNth3wtWDNpXSj xWL8ehZzuL2TxpWA5OTYvt3 v4Sc53L08hE3ApsGW+PGNvb FT5aOH4 iB4iCoKoNyL1HIbaE515HrH fhXMiBgbmq1tuc6imkFi7Kd E4GUDxrfYjwCoqLRE8o1HuO j83T17o IHdpZHRoPSIxNSUiIHZhbGl bhb0fgY2yIt3+BDSwpMQ8hS U2jN5jPmIwRhA4KLqgU239C nRvcCIv Tzfgr7xwb6awiEo8LlJcCAN cycFljFrmTVH4d7FuTu79O8 LgfOtql2IoOjs7lz83xQHum 9M5zBJ9 S2AkPNHnqmtdtTPdpLrtOQ0 eMVLkehcoMSSvxV6gCTZnI6 l0OzEhXpD7EHcmJ6WzvwW1U GJvbGQg XSDwxPAGwH1ykhucv8aqakc dWtGtBICzDNj8GXi2HZQdcQ ejEbCxLLS7FaR5CBN5dUZmh D4rqGvj faxiiN6aSwo+FOG5fYCdlYM VOS9yCzrwoSZ+LGZnLXO5nP yrNDfzGIGxtA0oZFHlP0z8Q iAwLjA1 CWkmW4XpalB1QMAizLJeNLS cpRIKhQ0vdfmkg3jgbcmmSu CaDPPlTBg8JVt9CHYtjXbwB iBsZWZ0 KfI0LWQ0aRFfaN1tkBgjdos tqQ3oCfm+FnnoeUtkEAU0YY c4Q3JlMhh1SVPpcPzdCF2eh GFkZGlu Br8ajXdeyUbeNT5mKMXpqdj mb661IxUkp6qzWXNhcSPmBY bzHAC1H08bu1W1KYHsYLPgZ IM3kVF3 nI7tvHlpluenrZQbxRmzajV vsZavSXafOFgdS830NRDolP uiOdNgUGv2Y9TeGso9JOBek MqtIW7r qCQkTXrcAo8lrWrejCxsID1 aMORrkfmdt077CjZbi4fgLY EnhIZnUWnnDXS3N23gx8S3R CMwMDAw UCI9aFG7sI5jvYfdfvkhpKP mdDsgdmVydGljYWwtYWxpZ2 89OBGkuKbzCnBhzOp1Q4YtU iw4WCDh jXksYG3ntSBeABylHj9rxOy tjXzgNG3aXFXzvkipj826Xr Eei2jkCHJbrOQaVLjwALT6W 32fz2H0 ENNdUKTgTYP5eSZ6lG0mjUt nbjogbGVmdDsgdmVydGljYW yiDWkpQ139CODxyMizWiTjx GllbnQg URmdBFs4H6HeWnejaPQ+PC9 4RHBrCO41nULzzCLue0gzdJ b1FyVhAQMvCGR1gMjeRVghm 3JkZXIt K52olNPea1W4UKZvcUxmaUG eKqJxdDR3hN8xCLtxwkgvu5 wsujyqLndgs7uvoz90rJ39U 29sIHdp ZHRoPSIzMCUiIHZhbGlnbj0 hxU9qUi8+XCZvcCH4aMJ2hZ 1jBPIwIrX5ZTnkC355DkKyg CIvPjxj q2zkw8awtMh6ZsN2VEHemdT wxXcbQHN2c8JcEu83Y65sOD dpZHRoPSIyMCUiIHZhbGlnb x0ilQ6i Ii8+DKFbaEH1dMH2oN7xYoV pLkB3HVciR771YtYelDItIo gbT99bT2HjwEC+UUGcLys3T CBzdHls VO2qsIWpRBwsGl7uAKK3PcB pJdUoATleM7WeNGUggzeveq mrrWD1GGJxQLUfyV80Jy6en DogMTBw vJQItU8swocty8uzadzhXbN eHIOpJWl6CGe0MGPtnSimVw QnEQF5UkC6LEH5gARrlX1qy Glnbjog kA2sU1WgCHXuedxmKp82cY8 xMhOtLuA5BCzrRxo+TUNDQU 5OLCBIRUFUSEVSIEVMSVpBQ kVUSDwv dGQ+CRMiVDX1zEvqNLvqEEB mrH3zLUWqS4o5ThFpQxG2IX mdO1OzDFQgtwcqPm87wX4uL iAwLjA1 ONosY7GrgyY6RACutNWxVIi oUGV6X38ds5T8UYSdGVGfCI X3kWS4gH8xlGskqrwwaQZzs DsgdmVy aKoqTFdaPLxtX051KUTshAd pZtQfXrE8DjP4RRO6J2IjBp e0ICBtfOshUK2bdZMwTCiwN y2jzQwj qKcfRE1eGRKpztnjOPXehW5 qXYHlfFFzsGytGC6eRSEgye oce331QgHdCFA5IMCmwLPbT 6HaaJ2x GeFsENQuGNVwV3HosJUlAWy zL242QIjkSbM2AUGuetWkQ4 EaMKZoyYkrEuZ2z9K7He0tC SBZZWFy czwvdGQ+PYAvLNZ8tOtfMXc cKNCijW6xSGCjS3v0EhJuYk X9BVmhP3DpGKZnmvgdIu80u L2tXcOh NkA2MFrrJ3MeajC0LDGsmOM kEQtcDSX0M33jn4K0DSAgBC NfNXX5iNW2zL9jwSejpkdlb GVmdDsg fkOchHkoQMrgZUyhS846TFI vcDsnPkZFTUFMRTwvdGQ+PH XlJEQ6uRauONadHUMawJ5aP SYiK3v7 PjIkHbH0SMerA3UgDJKerjy oCf44nQ5eCeErQfU6ZNleF3 KkhnD1GGTmkDZqFBncNPM7S 82gn8G0 CRPuLJAhEVI8cNE4bO6irSt nbjogbGVmdDsgdmVydGljYW hoOCblJ774XXGkdDbzDk9EP H72CX29 N0QrMomudGMkpMC+PHRhYmx lIHdpZHRoPScxMDAlJyBzdH viJO5dDn9fGUJaYAGjkKqkd HNlOiBj b5hiEOCgSKgoLK2kcZyzR1H twEY1OVCfx8s7Og44B14gE7 JvdXA+UIJccEO3hZV5lL9fE zAlIiB2 YHxoP076OgHrrUKkWzxnq9t ch0fayOy6WhBxIJLfoyMngT qhBRL4a9KuEv88S65gUBlpQ HRoPSIy IUByIKEbqVnodi0acU0jZw2 +ZYJjqSO9uJN7eX9hOrTnWd W2CFtyF659RzMqfTGfTcatO 80wD4Sq dXA+NGAiGvv7FPCssHeoTL0 yeAJcHPwkMd9eXYO0WxOkYe MzNCkjB7LtVCTowdqjjzxxx PA6EALw WRRvpW24Zr9ntRpbDt6tTRI iGCI4PBUzlXWvA6AtlZ0lHs XlABDcMVSxA5HetDUfPXhaA 246IGxl CwM2JMUzsqKkE7FyEWHeuNc xBiI8k6T4Xs0QqOomiBVdEE 2uBiUxTRf6I0KtXxy9KXDzj DvuWP3s jDGsFLsfMa7ipAwcpUzxWN3 fSXHyeeswz089UtYbd0lqMQ LwmWXzVIwdUSM1J59js5A6Y CMwMDAw WZZ6lPY7iS0mfDixjpyakUG mdDsgdmVydGljYWwtYWxpZ2 39HJWaaGzcXoISRjd4G9VhW rq0OCTt wCdkAR8voHZhFEmdJn7ptPl glQyyLM2jHRBvnpgri789Mk Tbz5qnAELlkUCjTFfcFUB7X 38cp4Q2 WCTtHEBiCPS0yAA5wJ0vaFm nbjogbGVmdDsgdmVydGljYW vyZWnyR333RACxhAtdUn5JL va4N9Nf Vlr7LIKkjJnpVC9kwKCcNUu yVd4mfErhjEpnUW9gGHMpcx vcy524SgQuu6rfGKKacRXeB GltZXM7 Q20ze3F4ZSAlXJHjNRU2qNZ 6nM2nmAawczwmdBZtyWcjeu ViuWknJEtwLLxeL691LULfo DsnPlBh eWVyOjwvdGQ+FW53jq81G4O hBphoTmz8ETDvGLO8oGO6iV 2iBLXgOJgzb7G0xCJ3Z9Cbp kTwqg3d b2x (more content not included)... Normal [facility] Compliance Drug Analysis, [facility] 10-02-2024 Summary LC FINAL Invalid Interpretation Code [facility] Comment on above: Result Comment: ===== TOXASSURE [...] test is not intended to distinguish between lijsd-6-xvxlanvulqrjptczzzsi, the predominant form of THC in most herbal or marijuana-based products, and xbdjb-5-afptlzydiwgxtvfqfcdx. Lamotrigine PRESENT Acetaminophen PRESENT ===== Test Result Flag Units Ref Range Creatinine 45 mg/dL >=20 ===== Declared Medications: Medication list was not provided. ===== For clinical consultation, please call . ===== ToxAssure, ToxAssure FLEX or MAT drug testin -Technical component - Data analysis performed at [facility], [address] [place] [id number]. [phone]. Operations Business Partner César Bains MD. [employer]oxAssure, ToxAssure FLEX or MAT drug testing: -Technical component - Result certification performed at [facility], [address] [place] [id number]. [phone] Operations Business Partner César Bains MD. Performed At: [facility] [address] [id number] Brendon Tsang Ph:[phone] Performed By: #### 1 [id number] ####[facility] (DEFAULT)[address] [place] [id number] C Urineon 09-28-2024 C Urine Mixed skin, or urogenital damián. Clinically insignificant Normal [facility] Comment on above: Performed By: #### 6 [id number] ####[facility] (DEFAULT)[address] [place] [address] HBsAg Screen LCon 09-27-2024 HBsAg Screen LC Negative Invalid Interpretation Code Negative [facility] Comment on above: Result Comment: Perf ormed At: [address] [id number] J Luis Gray PhD Ph:[phone] Performed By: #### 1 [id number], [id number], [id number], [id number] ####[facility] (DEFAULT)[address] [place] [address] HIV 4th Gen Screen w Reflex LCon 09-27-2024 HIV Scr 4th Gen LC Non-Reactive Invalid Interpretation Code Non Reactive [facility] Comment on above: Result Comment: HIV- 1/HIV-2 antibodies and HIV-1 p24 antigen were NOT detected. There is no laboratory evidence of HIV infection. HIV Negative Performed At: [address] [place], [place] [id number] J Luis Gray PhD Ph:[phone] Performed By: #### 1 [id number] #### [facility] (DEFAULT) [address] [place] [address] RPR, Rfx Qn RPR/Confirm TP L Con 09-27-2024 RPR LC Non-Reactive Invalid Interpretation Code Non Reactive [facility] Comment on above: Performed By: #### 1 [id number], [id number], [id number], [id number], [id number], [id number], [id number] ####[facility] (DEFAULT)[address] [place] [address] Rubella Antibodies, IgG LCon 09-27-2024 Rubella Antibodies, IgG LC 2.78 index Invalid Interpretation Code Immune >0.99 [facility] Comment on above: Result Comment: Non- immune <0.90 Equivocal 0.90 - 0.99 Immune >0.99 Performed At: [facility] [address] [place], [place] [id number] J Luis Gray PhD Ph:[phone] Performed By: #### 1 [id number], [id number], [id number], [id number], [id number], [id number], [id number], [id number] ####[facility] (DEFAULT)[address] [place] [address] .Auto Diff 1on 09-26-2024 Auto Fannin % 6 % Normal 04-29 [facility] Comment on above: Performed By: #### 1 [id number], [id number], [id number], [id number], [id number], [id number], [id number], [id number] ####[facility] (DEFAULT)[address] [place] [id number] Baso Abs# 0.0 x10 Normal 0.0-0.2 [facility] Comment on above: Performed By: #### 1 [id number], 4534264, 5030244, 52225156, [id number], 79610572, [id number], [id number] ####[facility] (DEFAULT)[address] [place] [address] 02962 Basophils/100 WBC (Bld) 0.1 % Low 0.2-2.0 [facility] Comment on above: Performed By: #### 1 [id number], 3576084, 4902295, 84504496, [id number], 10960924, [id number], [id number] ####[facility] (DEFAULT)[address] [place] [address] 31362 Eos Abs# 0.2 x10 Normal 0.0-0.4 [facility] Comment on above: Performed By: #### 1 [id number], 4930774, 6428292, 78870837, [id number], 58599433, [id number], 95669332 ####[facility] (DEFAULT)[address] [place] [address] 02841 Eosinophils/100 WBC (Bld) 2.0 % Normal 0.9-4.0 [facility] Comment on above: Performed By: #### 1 [id number], 4827637, 5090234, 24108700, 7783584252, 20033110, [id number], 13271842 ####[facility] (DEFAULT)[address] [place] [address] 76769 Lymph Abs# 2.0 x10 Normal 1.3-2.9 [facility] Comment on above: Performed By: #### 1 [id number], 2515616, 3614102, 90580076, 3474344125, 71908025, [id number], [id number] ####[facility] (DEFAULT)[address] [place] [address] [id number] Lymphocytes/100 WBC (Bld) 26 % Normal 14-48 [facility] Comment on above: Performed By: #### 1 5141618, 5866591, 4070700, 91148083, [id number], 28189802, 1400762124, 38273464 ####[facility] (DEFAULT)[address] [place] [address] 82558 Fannin Abs# 0.5 x10 Normal 0.0-0.8 [facility] Comment on above: Performed By: #### 1 4787530, 1907612, 6299566, 24812007, 6808201944, 20626981, [id number], 69769776 ####[facility] (DEFAULT)[address] [place] [address] 58266 Neut Abs# 5.1 x10 Normal 1.5-9.2 [facility] Comment on above: Performed By: #### 1 [id number], 8479735, 9408418, 10558083, 3586931106, 65631934, 0136806327, 43929769 ####[facility] (DEFAULT)[address] [place] [address] Neutrophils/100 WBC (Bld) 66 % Normal 44-88 [facility] Comment on above: Performed By: #### 1 0991205, 4518549, 2102292, 53918579, [id number], 84817780, [id number], 74187230 ####[facility] (DEFAULT)[address] [place] [address] ABORhon 09-26-2024 ABO and Rh group Nom (Bld) Hx Check: Not Found Anti-A: 4+ Anti-B: 0 Anti-D: 2+ DCon: NT A1: 0 B: 2+ ABORh Interp: A POS Invalid Interpretation Code [facility] Comment on above: Performed By: #### 1 [id number], 9434214, 4131296, 57703309, [id number], 61673054, [id number], [id number] ####[facility] (DEFAULT)[address] [place] [address] 96322 ABSC Gelon 09-26-2024 ABSC Gel Negative Normal [facility] Comment on above: Performed By: #### 1 [id number], 1723672, 7758843, 89308670, [id number], 25175504, [id number], [id number] ####[facility] (DEFAULT)[address] [place] [address] 02244 CBC w/ Auto Diffon 06-11-202 5 Erythrocyte distribution width (RBC) [Ratio] 13.2 % Normal 11.5-15.0 [facility] Comment on above: Performed By: #### 1 [id number], 3257079, 1367111, 60246894, 7553181548, 36894538, [id number], 63217490 #### [facility] (DEFAULT) [address] [place] [address] Hematocrit (Bld) [Volume fraction] 39.9 % Normal 33.7-40.4 [facility] Comment on above: Performed By: #### 1 1389056, 1198031, 7470294, 60259396, 6521248618, 32791557, [id number], 82402926 #### [facility] (DEFAULT) [address] [place] [address] Hemoglobin (Bld) [Mass/Vol] 13.9 g/dL Normal 11.3-15.9 [facility] Comment on above: Performed By: #### 1 0782755, 7529655, 2191366, 15271170, 9478034959, 18768413, 7391567623, 18774185 #### [facility] (DEFAULT) [address] [place] [address] Man Diff? Auto Invalid Interpretation Code [facility] Comment on above: Performed By: #### 1 8000382, 1363955, 2608220, 50809367, 7967375106, 89123932, [id number], [id number] #### [facility] (DEFAULT) [address] [place] [address] MCH (RBC) [Entitic mass] 29 pg Normal 24-34 [facility] Comment on above: Performed By: #### 1 7573727, 9827163, 7188757, 47621519, 5430215172, 30900286, 4848387130, 95436778 #### [facility] (DEFAULT) [address] [place] [address] MCHC (RBC) [Mass/Vol] 35 g/dL Normal 26-37 [facility] Comment on above: Performed By: #### 1 6399161, 8352254, 3200717, 52565403, 6274417332, 31281606, 1806284091, 80092611 #### [facility] (DEFAULT) [address] [place] [address]997 MCV (RBC) [Entitic vol] 84 fL Normal 81-100 [facility] Comment on above: Performed By: #### 1 9458829, 0667563, 4361619, 66284334, 5811975738, 35739094, 1767298700, 56789108 #### [facility] (DEFAULT) [address] [place] [address] 46495 Platelet 210 x10 Normal 138-427 [facility] Comment on above: Performed By: #### 1 4820009, 4446232, 0951380, 00019129, 8228003870, 06343478, 4132517662, 88007508 #### [facility] (DEFAULT) [address] [place] [address] 13499 Platelet mean volume (Bld) [Entitic vol] 6.3 fL Normal 6.3-10.2 [facility] Comment on above: Performed By: #### 1 9847497, 9974849, 9924544, 22196232, 7503958071, 85137850, 9485349222, 78845715 #### [facility] (DEFAULT) [address] [place] [address] 85880 RBC 4.76 x10 Normal 3.70-5.30 [facility] Comment on above: Performed By: #### 1 2889003, 3081132, 5163652, 11721275, 1226324779, 58085150, 0809618739, 54786955 #### [facility] (DEFAULT) [address] [place] [address] 97307 WBC 7.8 x10 Normal 3.5-10.5 [facility] Comment on above: Performed By: #### 1 8077166, 2654508, 4781311, 10944743, 9737600880, 46583721, 7324848244, 10301564 #### [facility] (DEFAULT) [address] [place] [address] HBV surface Ag IA Qlon 09-26 Hepatitis B Surface Antigen Negative [facility] HIV 1+2 Ab+HIV1 p24 Ag IA Ql on 09-26-2024 HIV 1&2 AB/AG Non-Reactive [facility] HgbA1c Standardon 09-26-2024 .Hb 13.1 Invalid Interpretation Code [facility] Comment on above: Performed By: #### 1 6824145, 4517290, 1797525, 50576633, 9071452008, 04072388, 8585794520, 10004404 ####[facility] (DEFAULT)[address] [place] [address] 20123 .Hgb A1c 0.38 g/dL Invalid Interpretation Code [facility] Comment on above: Performed By: #### 1 3359081, 1298596, 7401847, 77738595, 6283007712, 25081677, 8569646115, 33274186 ####[facility] (DEFAULT)[address] [place] [address] 44278 Glucose [Mass/Vol] 91 mg/dL Invalid Interpretation Code [facility] Comment on above: Performed By: #### 1 6085850, 3011325, 9181226, 40636504, 9266217113, 19364942, 2252132080, 02282570 ####[facility] (DEFAULT)[address] [place] [address] 05803 HbA1c (Bld) [Mass fraction] 4.8 % 4.0 - 6.0 % [facility] Comment on above: Performed By: #### 1 3713891, 0109449, 6472994, 14047611, 2621249059, 15996556, 5794768408, 55732813 ####[facility] (DEFAULT)[address] [place] [address] 45087 No Panel Informationon 09-26 [facility] Provider Orderson 09-26-2024 Provider Orders [id number] GTIFF Normal [facility] Rubella IGG immune statuson 09-26-2024 Rubella immune IgG 2.78 [facility] T. pallidum IgG+IgM IA Ql (S )on 09-26-2024 Syphilis Non-Reactive [facility] Type and screenon 09-26-2024 Abo/Rh(D) Positive [facility] Ultrasound - Officeon 2024 [facility] HCG ( test) Ql (U)o n 09-20-2024 Interpretation and review of laboratory results Abnormal [facility] Preg Test, Ur Positive Negative [facility] US OB TRANSVAGINALon 025 US OB TRANSVAGINAL [...] II, MD, PHD at 21-Sep-2024 08:26:46 AM [facility] Normal Not Available Comment on above: Order Comment: US OB TRANSVAGINAL No LMP recorded. Urinalysis macro (dipstick) panel (U)on 09-20-2024 Bilirubin, UA Negative Negative - 4(70) +++ mg/dL [facility] Blood, UA Negative Negative - 50 Yehuda/mcL [facility] Clarity, UA Clear [facility] Color, UA Yellow [facility] Glucose, UA Negative Negative - 1999(110) ++++ mg/dL [facility] Interpretation and review of laboratory results Normal [facility] Ketones, UA Negative Negative - 160(16) ++++ mg/dL [facility] Leukocytes, UA Trace Negative - 500+++ Kourtney/mcL [facility] Nitrite, UA Negative Negative - Positive [facility] pH, UA 6.5 5 - 9 [facility] Protein, UA Negative Negative - 1999(20) ++++ mg/dL [facility] Spec Grav, UA 1.025 1 - 1.03 [facility] Urobilinogen, UA 0.2 0.2 - 12 mg/dL [facility] CNNURSEon 09-03-2024 CNNURSE Nurse Visit (REIAV) JAZ SANDERS ([id number]) 1995 F Date Time Provider Department 09/03/24 10:40 AM US TECH 1 [facility] REJ REIAV During your visit today, we recorded the following information about you: Charisse Weaver APRN.YOUTH DEVELOPMENT PROFESSIONAL 09/03/2024 5:42 PM Signed Jaz Sanders here [...] 2024 5:39 PM Referring Provider: SHELLY HERNANDEZ [[id number]] Allergies As of Date: 09/03/2024 (Not on File) Date Reviewed: 08/20/2024 Reviewed by: Shelly Hernandez APRN.YOUTH DEVELOPMENT PROFESSIONAL - Fully Assessed Visit Diagnosis:Early stage of (HCC) [Z34.90] Order(s):OBSTETRIC ULTRASOUND [facility] [[id number]] Order #: [id number]. #:[id number] WPOINTQty: 1 Prescriptions as of 09/03/2024 - [...] Status:Closed by BRADFORD DOSS on 09/03/24 Normal [facility] Examination level ultrasound on 09-03-2024 Indication Viability, Repeat Impression - Single, live, intrauterine . - An intrauterine gestational sac with a yolk sac and pole is present. - [place] rump length measurement is consistent with the [...] Read By: Bradford Doss M.D. MATERNAL MEDICINE [facility] Radiology Study observation (narrative) [facility] CNNURSEon 08-28-2024 CNNURSE Nurse Visit (REIBD) JAZ SANDERS ([id number]) 1995 F Date Time Provider Department 08/28/24 11:10 AM US [facility] 2 [facility] BEAC REIBD During your visit [...] next week as scheduled Shelly Hernandez APRN.CNP Mikey Torres MD 08/30/2024 4:36 PM Signed Viable ratliff IUP Size equal Date. Plan: patient to follow up with her ob for care. Stacy Banuelos MD Referring Provider: SHELLY HERNANDEZ [[id number]] Allergies As of Date: 08/28/2024 (Not on File) Date Reviewed: 08/20/2024 Reviewed by: Shelly Hernandez APRN.YOUTH DEVELOPMENT PROFESSIONAL - Fully Assessed Visit Diagnosis: resulting from assisted reproductive technology in first trimester ([facility]) [O09.811] Order(s):OBSTETRIC ULTRASOUND [facility] [[id number]] Order #: [id number]. #:[id number] WPOINTQty: 1 Prescriptions as of 08/30/2024 - [...] Status:Closed by MIKEY HENLEY on 08/30/24 Normal [facility] Examination level ultrasound on 08-28-2024 Indication Viability Impression - Single, live, intrauterine . - An intrauterine gestational sac with a yolk sac and embryo is present. - [place] rump length measurement is consistent with the [...] no free fluid visualized Performed By: Arelis Chvaez RDMS Read By: Mikey Torres M.D. MATERNAL MEDICINE [facility] Radiology Study observation (narrative) [facility] Xavier 08-24-2024 JARRODN Telephone (REIBD) JAZ SANDERS ([id number]) 1995 F Date Time Provider Department 08/24/24 [...] Date Reviewed: 08/20/2024 Reviewed by: Shelly Hernandez, MELY.YOUTH DEVELOPMENT PROFESSIONAL - Fully Assessed Reason for Visit: Patient Question [9257] Prescriptions as of 08/24/2024 - buPROPion SR [...] Encounter Status:Closed by MARIANNA WARD on 08/24/24 [facility] 08-23-2024 JARRODN Telephone (REIBD) JAZ SANDERS ([id number]) 1995 F Date Time Provider Department 08/23/24 SHELLY HERNANDEZ REARLET During your visit today, we recorded the following information about you: Angella Mccarthy 08/23/2024 10:39 AM Signed Name: Jaz Sanders called today. : 1995 (home) [phone] (cell) Reason for call: pt called today informing the nurse she has been experiencing pain of level 4 from 1-10. Pt has been experiencing pain for 2 day. 5 weeks today. The patients preferred pharmacy has been captured for this encounter? [facility] [employer] Shelly Hernandez APRN.[facility] 08/24/2024 5:58 PM Signed spoke with [...] schedule the patient for the following- Location: [facility] Provider: nurse Visit type: scan Reason for visit/appointment notes: scan Date: 08/28 Time (requested): 1110 If slot is full, please schedule the closest open slot. Call to patient needed: ana rosa [employer] [employer], Lana 08/25/2024 8:37 AM Signed Pt is scheduled on 09/03/2024. Shelly Hernandez APRN.CNP 08/27/2024 11:51 AM Signed Addended by: SHELLY HERNANDEZ on: 08/27/2024 11:51 AM Modules accepted: Orders Allergies As of Date: 08/23/2024 (Not on File) Date Reviewed: 08/20/2024 Reviewed by: Shelly Hernandez APRN.CNP - Fully Assessed Reason for Visit: Pain [78] Primary Visit Diagnosis:Early stage of (HCC) [Z34.90] Order(s):OBSTETRIC ULTRASOUND [facility] [[id number]] Order #: [id number]: 1 FUTURE Prescriptions as of 08/27/2024 - [...] Encounter Status:Closed by SHELLY HERNANDEZ on 08/24/24 [facility] Coding Summaryon 08-22-2024 Coding Summary HTMLBase 64 ElvhgxgjGAn7lPq+PGhlYWQ +NP2ZGVQkM24qmDGsfZ4bJ8 NMTElOSywgQVBQTElOSyIgb zKeHO7hkALtMOVi IC8+SW3sRCLqPasjcEElj6B 0fDU4D49xdq7pZGsmpWL4YF TsBlFzqpmnz3wfuPg8IKbjY mluOyBt UUEpcP02UIQ3uW41Ut12aAB ybHBih3jfsDm5GgJnKUSjFH C6rClhEHqtk8FsVCPlM87rr MDjc6B1 JXQopYuefDKeMnUtiUC9hX0 sLHmtwragx3dplgxvTrf2zc 67qDCbh6F8cDO1N0EflrS9A GJvbGQg DsgdcLMNtA2nyxhvt1lsnkk hDbUsILTyLCv0KJy0IORscY jpJcCmJT53LVI8WIQavnJtS 2FsLWFs pMtmEzD4t9M8Kw7BU7NGHll pK7RKKOEVLXrirEF+PC90cj 68Q5ZsJenwRle5KYIhOWN7z LN4mR1f WABmIKtkr0R9iUK3D1AmiaS eqs0rc0evFULsPXsfN95ypA Tjo4H5UDFdsPZ5QBHpwQfyF iBzaG93 Oyc+FAFhoVoef0McQqfwk7s db5djbSa7YlxrJBEzeaYtpM vhMJR1u6AyUg2tWBUoxPS3p HR9gC3g HhJbLcI0PLokE051KkMcjQH yLsphU75xS0RsmKI+PHRyPj z3YJEuvJuiTK2hL4FdDNDic mctbGVm rUvgLQ0qNWIfehvcFMZvsL2 gHBOqQ1m2QtSbPwG7XIzmA9 ZiQCSepuxvAh31zG8xVfJnG cK8SByd Z3MqmwY1IQPkwBPuPSgjSVP 5W78nt0O4XHKzFCTrAQJ1rL P0eJ2coAbegxgqxDZrnUceq mVydGlj FGuhOOxaX614AQItuDciKmZ vZGluZyBEYXRlOiAgMDUvMD cvMjAyNTwvdGQ+MTYbRGA4y WxlPSAn pLVhHWqcMz3ukIffoEpoHS4 jNCQrghzyGNGibX7oQOZboG JbbJepAO6hHTQefhppj833Z iAxMHB0 SGLmyHLcD6WdlG6uTtAmNFQ nFDJgT7HshOBsWMcaB202SX kdUjH5OYDgirLbS5OiOOJdr WduOiB0 h8Y2Ns7Kf2KktznuZ6EzkOK tWcUhRraxHKy3K3NcDrysjB I+GK14QGSvAJ06AZf1DFM8x WxlPSdi EPRnA2RnyK6qWuOkQUOmJEH kOyc+PHRhYmxlIHdpZHRoPS ubHABbNoJlrNbcVS6pYk3zF GVyLWNv mNxhiVDrKuCpy8afHMEnWGs xQB2naBvkR6GvyVX0QPRow3 n4Fz68T26mJ3OxyNJ+PGNvb AF7nAC5 mP5jJhSjCkW7BRvmF431XvW tmRAcGrvzj5mjv7eyxWm1Hn G0AHYbusQyrTzxZWQ9l3KgA u19M24z IHdpZHRoPSIxNSUiIHZhbGl hpp6zwF1rDg1+AEPizSB5kQ S1jS0wYiDrPoP0UEzgL212Z nRvcCIv Qkuqk6atk8qhvIc5IjKzFUI kagNprIufRWQ2u5CsIy52M3 AbdUqmz4NeLiw5ua46vNJck 3C1rXW7 F0CgDOWfnnwhpAJnmHwxRE8 kDPGyjaznFAFteS6uZFKvW5 g7HvTmRyE0FHblQ2DouoW9L GJvbGQg HCNitQMShO4vrkxgm2ustqu pHaVtJAFoLJr3YMe5FYFatL goYjHeZQO6IuR3IID9oUWoh U7mvZos supwoR8xFdw+YAS8yHXqqFU IPW5xQixnuPM+YAPwNKT6uG nkYTcaZXTbiQ3sJWQjG0r7X iAwLjA1 UWjmH8AxyzY9GXOsuPSuQCQ hyHXOoG6oqwqkm2kocvwiGl UqPBBtTKj5CIc0SXRnzLolE iBsZWZ0 HuX3OSE3oFZrnQ8mkLqpzps ueB1bCfh+ZekzcGmjWHU4AY j2I2UhUex7GEEjlOgzIA8xr GFkZGlu Mw3wjFezkBgbXM7jWATnyhn ep643TyWnr4tfPPBerKVoJJ mfTTR7R68vk2I0KNPyINIfH PL9jCV9 yW2ezWnbmcrwkHZvuSzfytC nwFtmDHkzEQtvS702MJBqfM zhZoNdCUx0F4OiRrl0QCGgt GgtUB5q kWTlEXwjVt0whCozaFemPM7 qIWGxktkne707TtYba9dsXA VqbLDmAZreYLF7L61dg2V1L CMwMDAw MKQ1fUY3tI3pmNrekndabFY mdDsgdmVydGljYWwtYWxpZ2 33GGCjbMpxAfCaoVn4I3GiP cc8VLUo tRxgVK0yeKOhSDfnYo6jtQn hcVjcNC0hRHAykcfgd459Wo Wve2ujRBDdlYUoFFbfRJM4C 38eb7D2 YERfAWAyWXO3dIX0tI1agEz nbjogbGVmdDsgdmVydGljYW wyFQpcE126SMLwgRiwGmPgj GllbnQg LWpjUBx9D4PjCugrzIG+PC9 9GDQdNR44lOEoxLLeo5jnbN v4KwUsMLCxMHG0tDfbRElnd 3JkZXIt J82suZAsb2M5YJCygBedjZL lScQxkQB7eH1fURacjwcrf1 iwszcjBucgn5jonv69iJ39H 29sIHdp ZHRoPSIzMCUiIHZhbGlnbj0 njN3xKl1+RFDkgUB3iJN2oS 5fBWEhXkA7YOzdP535SsIgh CIvPjxj r3lcc2idxHu6AsH4EICsreG rbYqrOBN6p8VeOw33L02sSV dpZHRoPSIyMCUiIHZhbGlnb n9umH0o Ii8+ZZMvkOK6cVR8zU5fTbW vTkM6ADkjA614SaZvlSOyCt ycD00fH1GckBB+XQBrOvv6S CBzdHls ET1jhDTuULiwZr0uGCH4MiR zQpQrXXqlD9UeUZCshwhmyf vnrWN5PHMnLYRcrZ31Zf4sv DogMTBw mWNMdF7gegclj0gaovffRqL aNNEsYPl0GSe4BNEatJmeAx YdLMS0YjN9DRT1bWRzcW1bs Glnbjog iF5bW3MoEAXcttlxDc53sD7 eAhYkTaI6TWagIaj+TUNDQU 5OLCBIRUFUSEVSIEVMSVpBQ kVUSDwv dGQ+HWTkTLD9tKqiJRojHIE zqS9iJBDiQ3g4SzEaTcN5CW cyT7UyUNTjinbeHl40xS8tA iAwLjA1 LIdpG9FhxsS7JQYapPBhHYl uFNQ2C92qt7F4ZRKvVXEqMD U9yHZ0cS0nbZtczctgxBGfm DsgdmVy fPvtFFpeXYiiL948YKWkkDs xOvDdWcW8VbZ4JHE6A1KqKl p9KULnpRwpWE8kjSLyFEzdA x1zbZys jLqeYL2bYLXabsgrGYIweK0 aQFWmuMHppRwzWQ8mLPXgme qgr150VvGxYFK3UMCqqKBrQ 6AafB7s EuSvJVOiOSBsC1OfdRDqLAi zF510TFdmFsA1HLBzugClM8 AoAFYbxRwtNxX7t9A8Ko0jD SBZZWFy czwvdGQ+DZUxGKT9cEkpRQw iPWDfcI0oVUVjM0c8AdKzRy B6BFckE7QdXWHbngtgFf31h Q9mTqIs ZnB4BHjqD1HckaO4PQOswEV tZZhoBWM7K87iv7V1WXAxUD FjSLE2aDE0bR0jqUhftujxa GVmdDsg lnFqbCsnHZfuYQgtA548DMJ vcDsnPkZFTUFMRTwvdGQ+PH ZnMEO6vKarKUeyWCBlhT2iZ KKsR2q3 JyBiVxJ5MFedW7XgCMXwoeo eBv93dA8gCpXzOnQ9JNeqB5 JihjP4AGMvtOXdZGheHMG9B 53yv3L4 EVRmCQGoAVH4iSR2eA6oiFu nbjogbGVmdDsgdmVydGljYW ogETcxL217PAEfsSmbIr6NA L85KU87 N2ZcWbaclMLuwXX+PHRhYmx lIHdpZHRoPScxMDAlJyBzdH jhLV1bHo7eMLIwZHMwhIxax HNlOiBj w7jxUKDvIYfkBB3uyExbE6Z uiXO3YFQhn0w6Hs70P20pH0 JvdXA+RQQigKK7zNM9yC7xB zAlIiB2 QGmqH298UfUpzPOpMjhpa6e sd8zibYv9ZaWcSBJfoeWtnW fyOBG0x4IuDa30Q40qEVedF HRoPSIy DHEmXDZwvOwpda2ymP8lIg5 +OSFrxLD3cOS8wU8cDbGxGp U4VIauE649PnCoyBUhPkvfK 69qI5Vz dXA+NFDzGyt9KVKmjBvxXR6 ehFJqITkuWa9fUXF3HqWcCg ViYIzpI5LlSNQzrhbpkkmvg JQ6IVQf NCCdaP86Vf5ymYkxOp3nTSS bUGB0JHXyiTDpU4JxaU1zGu RoXYAnXKIeK1PqvOEgKHrrY 246IGxl QlT5KHLhijRxX2AmXLKjwBv rYcE1n5I3Tt1XuSyqxRLiFV 8sIbClWZp1M5WuDdv1CLVpd EeiMO1m cDOiFMfbOj4veDsrcIfqKB1 jHIQwrfkbo893UcHpj7inIF PhlREfOBiiGNK3W25vj3M7E CMwMDAw YQE5lMN9pZ5vqXtmcdltiPG mdDsgdmVydGljYWwtYWxpZ2 61FUUmyZcrOqAOGrx6V0VpZ io4JQWi tCkxPM9qrBAdWNioLq6rhYe izOzuHB0fYOJfdsonp458Uy Yzb7cfHUNciFWuVEilXVA0V 39iw1A2 EQEoJRChTUC5fKK7pP6qdTb nbjogbGVmdDsgdmVydGljYW wfSTcoT939PHTbxTkwVc1VN ck4H7Ht Uqm2JRMhvMaoOP7ybORtBKf yWs8pxQkgcZqzAE4yQXPnvr ylx373YrYay7wsATGfzZScV GltZXM7 I68qx1G4VAFqCWNsBSE6bRQ 7sS0ujWjhpwtjvCFaxHsojn HklOuuDZqdKEatM805EEPcw DsnPlBh eWVyOjwvdGQ+OY11my27D7X tPsnlFoc3BHRyURZ0hEL0eO 0tXUNqLAooy1L5nAX4C7Dss oTggu4p b2x (more content not included)... [facility] Coding Summaryon 08-20-2024 Coding Summary HTMLBase 64 VeynxtzpKDu8rXk+PGhlYWQ +NK2PVMRhG37peHEozA3fF3 NMTElOSywgQVBQTElOSyIgb fEhLJ8smVWzMZMn IC8+QB8bFCBjLvapzFOlw9B 5jSF1A44qpi9vLHqrzXZ6XR ItBzOcfcrgc1dzwZp2QCdsG mluOyBt MGZwxA81OLC9wJ55Lp31vFO ryOSvi7bagJp3UhWnKLOqRS S3oVovBGtwq2MqDSAuU03ml KUol9G4 FTJrjCywzLOfOfYysFP0zM3 iWHbzxpuxd2cauyhcNnx3fd 07iJNmn8H2zCO3Y2DyvrR1X GJvbGQg RgtopLPIeC8wcizvo0pgasj nTuEeHAGhCDy5HIi4WACtcL zfFuHjFK05DKQ8DOMlntHdU 2FsLWFs jGuuEuI0c5M1Oa2OP3SNGwj uA1UXEWNCTOwctUX+PC90cj 68T3SrKekcUso3VXZyMRA8f DT9wF1z LUCkURmdb8W3wUM9E5DwhxU oar4uz9xxJCMaMFwiJ34rhT Pea8C5LPNmbBY1VVKapFaiR iBzaG93 Oyc+ESWumRizh6XtNjqsr0m to8gjzDy9CnvcDSIuwlLawE czOHW5i8LgHs6cNFXuaMF2a HZ1gB1i WvSlCnZ7WEyoH946GsLulKT zYbewA44cR1IqhAJ+PHRyPj o0AMDwyRtqOV7rO9HfIVIhq mctbGVm hXlnVN1uPGJitzdvTHKidM9 rKFSoS0n7XwYbQkR6NAykR9 SsSHOgslkbLq27nF8qPlDyJ rR9TYmi K0InqjE9OAVwrTMoHEaxGYI 0E68wh4H6LUIfASYyLMU5bN L5lA4mzObagvxwxAWsdYhjn mVydGlj TJylCFvjK953JABrhSspBbX vZGluZyBEYXRlOiAgMDUvMD UvMjAyNTwvdGQ+LKHeUDW7p WxlPSAn qGKiTVjgQr8aqRlxgFaoXB2 wPBGqzylcLUIwkL3lAYUncL DtoVbxZX9gTNEktwdec390Q iAxMHB0 WDWqcFOkV3GcoD9dStLsRSP dFIKgA5IraXWjIAsbX849GA taGcN9ZVIydmXxW4HkSGGoe WduOiB0 k0S4We8No5TtwcqcS2KpwYJ eRmKxZjshALg9W6QiXkhjcB I+DU42PWDmIQ29VLm8OXP3u WxlPSdi MISuL4OecH0nEvNrCMKiUUZ kOyc+PHRhYmxlIHdpZHRoPS lrXXYpHiIzdOmfPZ2zMd9rQ GVyLWNv sLajmSUgMiBhz4pnXQEmTQg sZF5ucFpnC8YhcTS7CXHku6 y6Ry22G61bE8AczNU+PGNvb YL8bEK9 mY2cRzWoRkY2TRwyA118AnK qyIZzCcdsa5wqb4vlhAo5Oo C2VJCzzdVxqCmjEYP7l9GdP c56Y75c IHdpZHRoPSIxNSUiIHZhbGl prc3cnA1tCd1+ZJZuxDD0lS H2nG8mBkCvUnJ8FNqdZ171N nRvcCIv Ndaeq4kei5tkgWc5HrSkBRY perYuqHasDOI8l5IeSf88W3 PewStwo6BiCxq4ck65sXTjd 6A9iAT8 G8OyDZHfkkvjfAKalQclLS1 cQUTqrgooBTSfpP4cORYnB7 p6OhVmPtE7XYtfM7BcdpA2Q GJvbGQg CVMbzHVHoK8aewdjn4gxebr zRdShMAMzXBx6ZJa9EZQhfT tiImPmYFA4MtH0MRF3kMJmj V1qgQrg bslqjY9jOoe+PKY6nFUwvWM BOT1xUmpquNF+EZOgLXS2xG rfGIwnUUVntK0wNVYbW5q8E iAwLjA1 PMidH0XkmtN5JRTquSMxANZ bvKSGuR0isqgwc3sufgxlEw WoTPUpYFl9VLc0QPEzaNbtZ iBsZWZ0 JcM9HRA3rMEusZ2kmLgeapf lgQ3xEnl+LxaetAkdNQY0GN g2W4JhCkr1WTBydMybJN3pl GFkZGlu Eb0iqIgriDdeMQ6wDSNhhmg ky446MgGvd8pxLHVdtUYnQK ckDCF4I65pg4B5PBQyFGIvP HL9cKP0 xW5wySuviceeeNQtvNusxpC bqXflJGkrUCybH808TBKmgT goCjNtAJi6G6HhQip2YVUax ZmvDX6v yRVyLFeoIm9vgIwhiUihLR5 cZRUkgajrk265QeEmp7cdTT GywQJbBRqwELH2D60yf7Q9N CMwMDAw RLI2fGG6rY4obKrfqyeknZH mdDsgdmVydGljYWwtYWxpZ2 28SIYpgWciUsZsmHi9E8DiU ib3JYQh gSckCK5ndFVtYDkkXk4lkRc biAmsDU2vTNKkzyjcd966Wx Doc0wmROQmqQCtOPmjUYA4T 20oa1U4 NMQxYRNlSCO9yPI8pK0pkLe nbjogbGVmdDsgdmVydGljYW ywYIdjT668AIVikNpwZuBfk GllbnQg WEvbPWn7X1PkIduemTN+PC9 3XXVlVF45dQWewWTzr4xxjH t1DnVkFEGjCJX2rPdrHHnzn 3JkZXIt O86baZXbz0H6KKUpnNpchRD qQoTklZP1yK3gXLwmwhusq1 bxilrdDgdpy8vjgg82pN16S 29sIHdp ZHRoPSIzMCUiIHZhbGlnbj0 vhZ7aJg9+TPMtfAZ2uWU8yK 1iCZNkJjU3VTxgZ010PnYpv CIvPjxj p8xnq1dbgXu5ZyN9TSPgdlC nwIgxEIP2g5VrTe20I85hOS dpZHRoPSIyMCUiIHZhbGlnb e7rtB3a Ii8+OUVnsNH6zZJ1tS0lFnL cOuR6VMdtQ532QpUgfEJeZw syD00uM0OtqMT+QMMhTxz8O CBzdHls BV3csJEzTScsJw5mMMF8KeH wOsLnVJwqC3KlFLVvqwvjih mmlSJ3RGCpNUVjpM54Zn7dz DogMTBw iTDFgI6zlfarh6raiuhaAhH yLOZwJZu6FXn6JPMjwOkmPv KlOUV2YzX8XXC8kLHncA1gi Glnbjog sP9eG5XhOHEwujdvHb70uU4 rGhZmNcD8IRssGpt+TUNDQU 5OLCBIRUFUSEVSIEVMSVpBQ kVUSDwv dGQ+BWVwMQM2pFegNNvtYZJ lbP4yMZKsF6g5IuEfPeN5PF spA8JvBDFnanhbGc49nT1xQ iAwLjA1 CAqlS7EkjlP4TPFgtPViTEg jOEV0O68os9O2ZFKsCZEgEO D8wPH5uR3nyAiowcbsgZYqo DsgdmVy kZcdIGlwOUxbU719DAMccUk xEwSqVwR4AjH8JXE2Q9HzVc n8ENJscWbyWA0tcALdGTepM f5xsDat nVwmSC8yZCYbxlhhBERahB6 hLGMxcCNphNsnZS9fSBOfxq mwj639IcHnHII5SKYbkXIfX 4HnyX7h PaAuCQWoGSJvV1BtqKTmWKf uZ323KObpNtR0BYGkfpSqH1 TnWPFkqIcdHwI7h7S2Po3kI SBZZWFy czwvdGQ+ZXZsMBR7lHxjLZm nGCMayG0dEWGnC8h8LdIpJi G5VVesQ0LyVVQromhpOv56m X4qPeXk KuM8CUwtV5WiydA2RMYawVP sJCgaLSP3B28pu8H7JTZgXR WxILN4aRI0lV1exVkvyayft GVmdDsg quVnkCswPFsdLGolU430ZEI vcDsnPkZFTUFMRTwvdGQ+PH LmHOL4zMxwURyjHZYwmF4lB DShL8f8 AwZdPhO5VPmcU6EgEIMflph cAn07iX9fPgHzKfV7REjxM7 IdcvT3IHHqpSSrOYjwZMR4Z 72zb9R6 AJTyQXItYEP5tHO1qD0hsTy nbjogbGVmdDsgdmVydGljYW cbMEctD650GIRbuKnrJc5OZ G71GJ97 U1EsUcsksNDrzII+PHRhYmx lIHdpZHRoPScxMDAlJyBzdH tyTE1hQi2aVOYfSLQqqVggp HNlOiBj d6woUKTsIStzXL9ciJzpH4J hrNK1BQXpt5d2Wd09K91qN1 JvdXA+FWVhlRK2yHB5kZ0rL zAlIiB2 NRteE057DtJxqYTmXnhnq2m fg4mbrKs1ZcSqFYNjfyIgbI vsIPN4c3UyTi91A40qCVkfL HRoPSIy XWRpKPByiMbzns2zeJ7sIu9 +YHUpaBQ7lOY2eF7kZdZkSx G2VKgsW958VmNwgWPwFpgtT 66jG0Ds dXA+JQPaItv2PJRtyJzpOD1 sfVTlUWlhQw5qVQI4ZqRaXf VsLRxvS3QwQIGhmhkjhiujf SD5AUJy NIFexT16Ik6sqFxqRf8bRYD fGTY8COBysPLbV3TwrG5rEx UmCISrFBFpN9TxxBJzTRrhI 246IGxl WaV2HNDsmdKiM3VyXSZmnRn uXuR0s3A6Lc6NaWghoUFpYS 5cPkRqJGb4Q6UpNen4YRNmx HopCR4z sUVbQDpeQm3plTvyfUczJY4 pDXHqwrpgb362FvAck6xqJC BsmECpEWjmTEH3V90zl9S3P CMwMDAw ZVO6kOG2kM3tsXedyrutyIP mdDsgdmVydGljYWwtYWxpZ2 47QMUnuPfrWlOYBao1F0XsG cf8YKSb sWvsYP9viDAiIJlmHw1gjQn jmCkiRN4uMRLzzixhn755Bs Gpf6laXNNmeRNoFVtsHZN8M 57as8S5 GHIkDUHlGQQ4kPQ1qU5meTt nbjogbGVmdDsgdmVydGljYW gyNPkbD828CZWkzVnoVs2QB te9L5Jf Xez4CWOmgXooRX6dhLYjUYg vMs9oyVcoaXtfGB5zRQGdga edg375TpDpx1emWKMryITiJ GltZXM7 U71qg0S5WMWiFFCsECJ2bCK 6qZ2hnHtsftfydGGofDigps ZzwWyaQRtoOHqzN498XZSyx DsnPlBh eWVyOjwvdGQ+ZF72sx76Y2J rJrlgMet1DQElFAU5tQB5dH 0tUBYeOShqy4E3fCI9T0Uiw zFnbo0i b2x (more content not included)... [facility] Coding Summary HTMLBase 64 IevsxjeeJHn2sLy+PGhlYWQ +QR0IPLUxE98vqRLsvT3eX2 NMTElOSywgQVBQTElOSyIgb uMjDF1pvGVqMKSr IC8+KJ7nRKGcCsjnaMAfq3I 6gWF7W62wzx3aTNpxfIN3IT ViFaCfvqkkr2mbcBx9SLmgU mluOyBt BISsnQ12JMG8vM04Iq73vOP stVDyq9fjkFb8PdDtFNFjDE Y0jCfrWRcpq5MnKMPrL19wp OHoy3D4 OBJhjSvzxXKfBjEzdAQ2vK9 dNPwvxcujc0uggygzLiu7bq 23wVWxt2J1qRS2S2SnheM4R GJvbGQg ObbzgPUDgU6gbfwlh6hhyak hUmJdLVBfHUx6SOz4SAUsuE poQhVyKH85SDJ4WLAwvgMrC 2FsLWFs jZddDwY0c0T8Ql8WA8NZVwy oL3MEFYUSYKtayCQ+PC90cj 88Z1JePddoEtb5DQHoDQE3w EL7jU1y KBGzMKbmx8H2mCP5Z8DfvdU myn7ps6gmMKOxWPveU52zwW Exj2T7WIMyiSP7NKLkrWrnN iBzaG93 Oyc+PLFvwImox0WdHvcps6s eo8hxeCd3MrxaBUPuolOllU woCPO5x3PeNc8vLVVgdNP8l QG0pC0u BlOmKeI1EYtmS857DoZmzBV rCuvkM07nP2LyjBL+PHRyPj l5BJMqfXqyWI3yI8IkDDIbx mctbGVm bQpcNY7zBWMvkvjnHQQlnX9 cAXPaJ9n9YnZcVmV4DUoqG9 ObDLUdqtmaKm73gI6bDfHmZ lQ1HCro N8EmfzQ0SRZcaZTaTRgqEBB 1W89wu6L3HSKxBTDoNBQ6qX C8jZ4cvCzulgnsfWKbmKlev mVydGlj URhfVScbN650OXSmqDktWoE vZGluZyBEYXRlOiAgMDUvMD UvMjAyNTwvdGQ+RFVgCQD5l WxlPSAn dENkBMnjGd4zcHipdUvmBY9 tOALubnnjOAGnjM1sVZTiuZ WvcTcnZW2oHIGyyymqd094G iAxMHB0 TSBonHRpR4OteK6wTaZsHAU rYPUlW7JwgBVlWWlaH473AZ dxQfI3RXIguoZmH5PvJMTfy WduOiB0 t2V5Nl4Of7DstloeY9EmwFP mLeQxElysVCp8V6SbMigmbA I+IB50CXWeKJ23HTy4AZZ6h WxlPSdi WIDoW0QrsQ8aPdYdSSYzISY kOyc+PHRhYmxlIHdpZHRoPS dkXFNiChZiuAdtGZ5eYq2fN GVyLWNv cJqlpRUfRlIuk7ltTPSpWNm sYJ0fhGbuM4YqlTM9ECGiy9 i6Dj69O80aN1EqkEH+PGNvb OM8kKT4 zB7kPaWkGvV8PIdvF152GaT inRAeRkrbh8sej3wrfRh6Oi S8XOOpsbYriXpcQCO8s8TpS f21O95v IHdpZHRoPSIxNSUiIHZhbGl unj3onM3iEd7+MBFcpCJ8mD L9dQ6jUrChQsZ0CTnaI739E nRvcCIv Evihj3gbu4ndxZx8HlGgJKL uwmKcmDyeQRR3j7PiKn39Q2 AfqZvyx4FbRey1cs55dIOxk 7J3fTI3 H5CsSGKlxtlvuNMwnRgdXS6 oRYYeokqlWSFonU0qCPGzA6 c2FsKxElY1FQozF2IzvtU3N GJvbGQg XSJggNMZpV5cvltqw3azgsl pHeIjFEGyRIr9IZy1AAMrgP tyMqNmQVF8YmD4NQO9pOOjg V7dbFpc swnbxR1lVxj+ODF1uSJkgBB QLH8fJftqoYZ+TSLbYQJ6iH jyRQgkUEQtiE3yRIDrX4h9T iAwLjA1 SJjeT5PgfhC4XHJruEWyWDB etXBCpF6fjbugr1pvckrvBo ArWDFgFQm4XZi2CHZfgKifY iBsZWZ0 ZtS5HVF7rGAkqJ0geHwbrcl frG3oWkh+UibmxOcxFDW3HO s6H1UzQhm3EPVrbHimNE3ec GFkZGlu Cq2paHxwkTgyEK8cYJDcgwm ou378YcMra4reXLDvlAGhIE qvYNR2O78hw8C7VTTzAXWhJ ND4pMC6 kA3anByaiqdrsOIwgKaqdjL cpGtpRZycDFnrS200WEDpfP ejVcHjHZg5C6MfQxi1XQDxx BgjJM4g rSChYRkoRw0edMmgcYqrBS4 oTFQogpean786AeQwd6dtFT GqiUZwIGbnZUU9T68et5A5G CMwMDAw BOK7lYB0hA5cqRotchgkdYN mdDsgdmVydGljYWwtYWxpZ2 64WGFeoFcqHqWobYf6L6GkG if3GACf pIynZV2ugCFrQSnoHb0roLf eePpdQL6uSDMcjcowl132Vt Qyp0kkXMTkhXWgJOxjLPG6I 22bs6O2 KZPsXBDbUZL6gER8fV6pjUu nbjogbGVmdDsgdmVydGljYW seQSknT763GKXiyXnnOdYwj GllbnQg HWsyPFh3Z4MkPpkmhRL+PC9 2TJBrSD65iMZglVCaq4yhdL a7TsOfJNWuJWN2iEzgBWadq 3JkZXIt G30moRWmf0P4JPKenWoycZH vJnQnyCK0vP0dNSxvgoheu1 jejogyScnmn7lvvf54bA46S 29sIHdp ZHRoPSIzMCUiIHZhbGlnbj0 xkB2bVn8+HDZzuSJ7eUX9nL 0nKHLwEvP7KYpgD575DgZbt CIvPjxj x0fil4qqlLu2VcE6HEIlsrR bhYsbQYS7h7IkQb46W84pPI dpZHRoPSIyMCUiIHZhbGlnb u7azN8m Ii8+ORRfcBR8kOR3yN3rJxB tPeQ3HBjxM879HoMbqHFuLo jzN93iZ5SnrCU+ZTCoHki8M CBzdHls UZ7lyUOtTQfxOj8bZYC5BgT cCoStKRvhG5JkOQPyedqevh jttWD5OHDxJVWjyS97Jl5dv DogMTBw vZZNmF7ohwcns6ooycqaHqY wPTOlAXe5KRa7OQHvoVsuDg DnPQQ0RbH7ASH0mYWqgQ6dl Glnbjog dA1sF5WgXEWtprrzNz90wY3 nMoStPbH2JFrxBit+TUNDQU 5OLCBIRUFUSEVSIEVMSVpBQ kVUSDwv dGQ+SFJhPVS0aUwfBEftJKM rcB6fJVAuQ9z8OdIcDsX8WZ kdS5GmQFWoplwhCs32zI9tC iAwLjA1 BBwxB4GodrF7HPCumQJyLOy dYYV1U80hm1R3XXYdLFLjDO J2lSU1cV3lqEhlsgfhvLPtz DsgdmVy uNgzOJliGMmaS806ZEBhlIf gMbTrPnV8BhT7PKE5X5YhWf i5YGMcvMhbVO8iaLDnFPpzT z2boIii sDnbVA0gEUCeegfnPKOptT9 dSCSivFQulGomNC8cSWZank kpa218GeDjRNQ2TPVdhUZkS 7RgfK4y ByTfVKQmGBAnL6CmsKZkTLr iH998NAtfDgY1EJQxspBvG6 FtDIWlaAttGgB7v8N2Bf3qE SBZZWFy czwvdGQ+KEIfXLM6lEqaBDw lOUOkgE5oCPWqY0r5GcJwFa L8OEklL0JoJYDsmwukNn48x H0rAkBx GwH3ZAczA6NvabS5VSQfvMO cVQmgGGT7X49jr7N9JRZePH GzVUN1yNO9bC0umIvflnneq GVmdDsg gsMfhFseIBgtKLecB829MOL vcDsnPkZFTUFMRTwvdGQ+PH YzWAN5vAlfEGctQRQrjZ7sC RLbQ4n9 UqEvZoZ4YHdsM2WcXHPuvxs xJc83iI5oXxNnGxM0HNgxQ4 MfihD2ISSeeOOrXIhdCGT4Z 87wn7A0 KWMiTKGlLSP2wRM2sC2bfKc nbjogbGVmdDsgdmVydGljYW noBUitX393ZGZvoKfbJs2HN N87OG39 B8PcPvnkdBHpaWV+PHRhYmx lIHdpZHRoPScxMDAlJyBzdH veJR8gFa7nPUVmARDgkVpuj HNlOiBj y1doLNSaYIfnQS7aeNdwR0H jeNF7SGVoe0w9Eu14S65rD7 JvdXA+OUMrwNT0kAH5bG3tF zAlIiB2 CWohQ411DlVpnSAgUbvrb7w cs9iywXg0HhJzUFWwryRcfQ vaGXJ0w0XxMk37P33zATnkP HRoPSIy TQXqCQGlgPpvcl2ozE2rPj2 +FVWefAR8pHL4wZ3sCqExQj J2RWeyS869AvKrpZOnCzqtH 08rS9Sd dXA+UFOsObr8GDLwsMilEG2 ziGBeMTeuIq3wGCP0OyUjWo CkIOsbM6WyCPUzscpzzlbaa GK3HZKp IFHupT47Og0neKjzVy1dIHM dHFG6HHNfkARjW8AmdF1gRe SnBBGiINFbZ1YpvISnXStnP 246IGxl LnH2HXYlwpNgA0OrXJXwrQg jSyR6a8T0Lj9AvMgapIZkQE 0aOpGcWNl6C1HlVtf2YRFhf NifVV5d iPFbPBikOy0cbZahcZknCF7 ePOQktzmya468SdQav3gfGQ VzbIBcFYfrGHJ3E76xk7Z4A CMwMDAw XZC7hTU6pB3bkFkgagzalAV mdDsgdmVydGljYWwtYWxpZ2 83RURlpBmpCzNFSih4I3WkD qb2WNHm vWttNC2oaNGjBMinMk4upQc viKrrNR2qNZNlosdzk626Iy Oxe2mtFZXteQMaVFsvBFP2O 99en8S6 IZLrWUFiOSH4mDT2bM9nkVd nbjogbGVmdDsgdmVydGljYW qvFHdrB127FMSlhRajSr9SQ en8L4Qw Jrx2CERznFevNA7bhYXfGLa rAb1vhHvewLblQQ9zHNWnqy ocg789ZlFdv7nnZGYnqJQwG GltZXM7 Z57yv4F6SBRfOBVfHLB9gVK 5yL3zuGurzpxvdQClkSfljv IbsBrmEHnjVSxcT150ISDos DsnPlBh eWVyOjwvdGQ+CQ89gr66L1K pDbhzLql8OBCfMAA3eUK9mW 4wHNNzQBuqi9F4eLM6X2Buh qNpjr2y b2x (more content not included)... Normal [facility] Provider [place] 08-17-2024 Provider Orders [id number]#1.00O TGTIFF Normal [facility] hCG Quantitativeon hCG Quantitative 362.7 mIU/mL High 0.0-0.6 [facility] Comment on above: Result Comment: Post -Menopausal Reference Range is: 0.1-11.6 mIU/mL Performed By: #### [id number] #### [facility] (DEFAULT) [address] [place] [address] [facility] 08-16-2024 [place] Telephone (REIBD) JAZ SANDERS ([id number]) 1995 F Date Time Provider Department 08/16/24 SHELLY HERNANDEZ During your visit today, we recorded the following information about you: Angella Mccarthy 08/16/2024 12:31 PM Signed Name: Jaz Sanders called today. : 1995 (home) [phone] (cell) Reason for call: pt called that she got positive test, she has been having having cramping since last night , it happens every hours for couple minutes. The patients preferred pharmacy has been captured for this encounter? yes Angella [employer] [employer] Custodian Daniel Hanna APRN.CNP 08/16/2024 5:28 PM Signed Called patient back to phone number listed in Epic-no answer. Lm for patient to look out for Mdundo message. Daniel Hanna APRN.CNP August 16, 2024 5:15 PM Allergies As of Date: 08/16/2024 (Not on File) Date Reviewed: 05/09/2024 Reviewed by: David, Shelly G, CARDROOM SUPERVISOR.YOUTH DEVELOPMENT PROFESSIONAL - Fully Assessed Reason for Visit: positive for [Other] Primary Visit Diagnosis: resulting from assisted reproductive technology in first trimester ([facility]) [O09.811] Prescriptions as of 08/16/2024 [...] Encounter Status:Closed by DANIEL HANNA on 08/16/24 [facility] 08-15-2024 [facility] Telephone (REIBD) JAZ SANDERS ([id number]) 1995 F Date Time Provider Department 08/15/24 SHELLY HERNANDEZ During your visit today, we recorded the following information about you: Charisse Ding 08/15/2024 2:10 PM Signed Pt is preg and wants to know if she can take benadryl due to her having hives Marianna Ward, LEIGH 08/23/2024 8:21 AM Signed See 08/20/24 visit with TY Vega RN August 23, 2024 8:21 AM Allergies As of Date: 08/15/2024 (Not on File) Date Reviewed: 05/09/2024 Reviewed by: Shelly Hernandez APRN.YOUTH DEVELOPMENT PROFESSIONAL - Fully Assessed Reason for Visit: Patient [...] Status:Closed by SHELLY HERNANDEZ on 08/15/24 Normal [facility] Provider [place] 08-15-2024 Provider Orders [id number]#1.00O TGTIFF Normal [facility] hCG Quantitativeon hCG Quantitative 160.6 mIU/mL High 0.0-0.6 [facility] Comment on above: Result Comment: Post -Menopausal Reference Range is: 0.1-11.6 mIU/mL Performed By: #### [id number] #### [facility] (DEFAULT) [address] [place] [address] [facility] 08-13-2024 [facility] Telephone (REIBD) JAZ SANDERS ([id number]) 1995 F Date Time Provider Department 08/13/24 SHELLY HERNANDEZ REIBD During your visit today, we recorded the following information about you: Marianna Ward RN 08/13/2024 11:19 AM Signed Letters sent. sent to patient Marianna LEIGH Ward August 13, 2024 11:19 AM Allergies As of Date: 08/13/2024 (Not on File) Date Reviewed: 05/09/2024 Reviewed by: Shelly Hernandez, CARDROOM SUPERVISOR.YOUTH DEVELOPMENT PROFESSIONAL - Fully Assessed Reason for Visit: Wants hcg levels sent to [facility] / [place] far away [Other] Prescriptions as [...] Encounter Status:Closed by MARIANNA WARD on 08/13/24 [facility] Provider [place] 08-13-2024 Provider Orders [id number]#1.00 OTGTIFF Normal [facility] hCG Quantitativeon hCG Quantitative 63.6 mIU/mL High 0.0-0.6 [facility] Comment on above: Result Comment: Post -Menopausal Reference Range is: 0.1-11.6 mIU/mL Performed By: #### [id number] #### [facility] (DEFAULT) [address] [place], [place] [id number] CNOVon 07-31-2024 CNOV Office Visit (REIBD) JAZ SANDERS ([id number]) 1995 F Date Time Provider Department 07/31/24 3:00 PM SHELLY HERNANDEZ REARLET During your visit today, we recorded the following information about you: Last Period 07/19/24 Mustapha Tello MA 07/31/2024 3:12 PM Addendum Patient verified by full name and date of . Jaz Lynda is here today for an IUI. LMP: 07/19/2024 Natural cycle IUI Timed With: Ovulation Predictor Kit , Date: 07/30/2024 Revenue Inspector offered: Patient declines Mustapha Tello MA July 31, 2024 3:12 PM Dominguez Barry 09/05/2024 10:45 PM Signed IUI specimen released to provider Dominguez Barry July 31, 2024 3:24 PM Dominguez Barry 09/05/2024 10:45 PM Signed IUI Cryobio Donor # [id number] Pre: frozen washed specimen Post: 82 M/ml, 67% Insem # 27.5 million Shelly Hernandez, CARDROOM SUPERVISOR.YOUTH DEVELOPMENT PROFESSIONAL 09/05/2024 10:45 PM Signed WHI JAMEL IUI PROCEDURE NOTE Date: 07/31/2024 Primary Proceduralist: Shelly Hernandez APRN.CNP Consents and Labels Consent Signed: Informed Consent obtained and on the chart Labels Verified With Patient: Yes Indications: Jaz Sanders, is a 29 year old female here today for intrauterine insemination. IUI # 3. Cycle Day: Last menstrual period: 07/19/2024 [place] Protocol: UNIVERSAL PROTOCOL / SAFETY CHECKLIST Procedure [...] Date Reviewed: 05/09/2024 Reviewed by: Shelly Hernandez APRN.YOUTH DEVELOPMENT PROFESSIONAL - Fully Assessed Reason for Visit: Infertility [...] Encounter Status:Closed by SHELLY HERNANDEZ on 09/05/24 [facility] CNOV Office Visit (ANDRBE ) JAZ SANDERS ([id number]) 1995 F Date Time Provider Department 07/31/24 2:30 PM ANDROLOGY BUSINESS BANKING OFFICER ANDE During your visit today, we recorded the following information about you: Dominguez Barry 07/31/2024 3:26 PM Signed Thaw for IUI. Dominguez Barry Referring Provider: SELF [[id number]] Allergies As of Date: 07/31/2024 (Not on File) Date Reviewed: 05/09/2024 Reviewed by: Shelly Hernandez APRN.YOUTH DEVELOPMENT PROFESSIONAL - Fully Assessed Primary Visit Diagnosis:Procreative management [...] Encounter Status:Closed by DOMINGUEZ BARRY on 07/31/24 [facility] 07-30-2024 [facility] Telephone (REIBD) JAZ SANDERS ([id number]) 1995 F Date Time Provider Department 07/30/24 SHELLY HERNANDEZ During your visit today, we recorded the following information about you: SathyamanishaCharisse 07/30/2024 3:16 PM Signed N- ivf Pt has questions regarding IUI Shelly Hernandez APRN.YOUTH DEVELOPMENT PROFESSIONAL 07/30/2024 6:00 PM Signed patient's OPK today was dark but not positive Plan: test again tomorrow. 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, schedule IUI the same day [...] Encounter Status:Closed by SHELLY HERNANDEZ on 07/30/24 [facility] CNOVon 07-07-2024 CNOV Office Visit (REIBD) JAZ SANDERS ([id number]) 1995 F Date Time Provider Department 07/07/24 10:00 AM MIKEY TORRES REIBD During your visit today, we recorded [...] Cycle Day: 14 Last menstrual period: 06/24/2024 [place] Protocol: UNIVERSAL PROTOCOL / SAFETY CHECKLIST Procedure [...] Gonzalez 07/19/2024 7:50 AM Signed IUI Cryobio #[id number] Washed frozen specimen Post: 31 m/ml, 77% Insem#: 10.8 million Referring Provider: DANIEL HANNA [[id number]] Allergies As of Date: 07/07/2024 (Not on File) Date Reviewed: 05/09/2024 Reviewed by: Shelly Hernandez APRN.YOUTH DEVELOPMENT PROFESSIONAL - Fully Assessed Primary Visit Diagnosis:Encounter for [...] Encounter Status:Closed by MIKEY HENLEY on 07/19/24 [facility] CNOV Office Visit (ANDRBE ) JAZ SANDERS ([id number]) 1995 F Date Time Provider Department 07/07/24 9:30 AM ANDROLOGY BUSINESS BANKING OFFICER ANDRBE During your visit today, we recorded the following information about you: Nichelle Gonzalez 07/07/2024 9:41 AM Signed Thaw for IUI Nichelle Gonzalez Referring Provider: DANIEL HANNA [[id number]] Allergies As of Date: 07/07/2024 (Not on File) Date Reviewed: 05/09/2024 Reviewed by: Shelly Hernandez APRN.YOUTH DEVELOPMENT PROFESSIONAL - Fully Assessed Primary Visit Diagnosis:Procreative management [...] Encounter Status:Closed by NICHELLE GONZALEZ on 07/07/24 [facility] SANDERSJAZ ANDERSON ([id number]) 1995 F Date Time Provider Department 07/06/24 [...] Date Reviewed: 05/09/2024 Reviewed by: Shelly Hernandez APRN.YOUTH DEVELOPMENT PROFESSIONAL - Fully Assessed Reason for Visit: Patient [...] Encounter Status:Closed by BECKI ISAACS on 07/06/24 [facility] 07[facility]05-2024 [facility] J[facility] SAND[facility] ([id number]) 1995 F Date Time Provider Department 07/05/24 [...] Date Reviewed: 05/09/2024 Reviewed by: Shelly Hernandez APRN.YOUTH DEVELOPMENT PROFESSIONAL - Fully Assessed Reason for Visit: re [...] Encounter Status:[facility] [place] Tele[facility] (REIBD) JAZ SANDERS ([id number]) 1995 F Date Time Provider Department 07/04/24 SHELLY HERNANDEZ REARLET During your visit today, [...] need to be removed. She will need [facility] guidance for her next IUI. Dr. Duran [...] Status:Closed by SHELLY HERNANDEZ on 07/04/24 Normal [facility] US [facility] 07-04-2024 Indication infertility [...] Read By: Ignacio Guy M.D. MATERNAL MEDICINE [facility] Rad[facility]ative[facility] [place] [facility] (REIBD) JAZ SANDERS ([id number]) 1995 F Date Time Provider Department 06/29/24 SHELLY HERNANDEZ REIBAri During your visit today, we recorded the following information about you: Kassidy Meyer 06/29/2024 8:53 AM Signed Pt had iui 06/09, pt isnt . Please follow up Cd1 06/23 . Pt had hematoma after iui Patricia Snow 07/02/2024 9:18 AM Signed Pt wants to know if she has to have us before iui this weekend Shelly Hernandez, MARQUITA 07/03/2024 12:34 PM Signed unable to reach, left message to return my call Shelly Hernandez APRN.CNP July 03, 2024 12:33 PM Ptaricia Snow 08/13/2024 8:52 AM Signed Pos preg test Marianna Ward, LEIGH 08/13/2024 9:17 AM Signed See TE encounter [...] Encounter Status:Closed by MARIANNA WARD on 08/13/24 [facility] CNOVon 06-09-2024 CNOV Office Visit (REIBD) JAZ SANDERS ([id number]) 1995 F Date Time Provider Department 06/09/24 11:00 AM IGNACIO GUYARLET During your visit today, we recorded the following information about you: LarrykimberlyNichelle 06/09/2024 12:30 PM Signed IUI specimen released to provider Nichelle Gonzalez June 09, 2024 11:24 AM Nichelle Gonzalez 06/09/2024 12:30 PM Signed IUI Cryobio #: [id number] Washed frozen sample Post: 42 m/ml, 74% [...] Cycle Day: 13 Last menstrual period: 05/28/2024 [place] Protocol: UNIVERSAL PROTOCOL / SAFETY CHECKLIST Procedure [...] was discussed with the patient or authorized sales representative electric service. The patient or authorized sales representative electric service has agreed to proceed with the sensitive examination. (Sensitive examination includes inspection and/or palpation of the breasts, pelvis, prostate and anorectal regions) Patient declined mutuel teller. Vidhi Sheldon MD IUI IUI Date: 06/09/24 [...] stopped. Will get pelivc scan [facility] at [facility] if not with this IUI prior pt proceeding with another attmept at IUI. Ignacio Guy MD June 09, 2024 12:30 PM SIGNATURE: Vidhi Sheldon MD PATIENT NAME: Jaz Sanders DATE: June 09, 2024 TIME: 12:01 PM Referring Provider: DANIEL HANNA [[id number]] Allergies As of Date: 06/09/2024 (Not on File) Date Reviewed: 05/09/2024 Reviewed by: Shelly Hernandez APRN.YOUTH DEVELOPMENT PROFESSIONAL - Fully Assessed Primary Visit Diagnosis:Female infertility [...] Encounter Status:Closed by IGNACIO GUY on 06/09/24 [facility] CN Office Visit (ANDRBE ) JAZ SANDERS ([id number]) 1995 F Date Time Provider Department 06/09/24 10:30 AM ANDROLOGY BUSINESS B[facility] During your visit today, we recorded the following information about you: Nichelle Gonzalez 06/09/2024 11:48 AM Signed Thaw for IUI Nichelle Gonzalez Referring Provider: DANIEL HANNA [[id number]] Allergies As of Date: 06/09/2024 (Not on File) Date Reviewed: 05/09/2024 Reviewed by: Shelly Hernandez APRN.YOUTH DEVELOPMENT PROFESSIONAL - Fully Assessed Primary Visit Diagnosis:Procreative management [...] Encounter Status:Closed by NICHELLE GONZALEZ on 06/09/24 [facility] Coding Summaryon 05-24-2024 Coding Summary HTMLBase 64 LoprpafgQTh7vEy+PGhlYWQ +GS2HLXHgN88vqGCazF5tQ0 NMTElOSywgQVBQTElOSyIgb fWsOD8pzEFuNVAj IC8+JP7wKGGiNopkeMGye3F 6oDJ2D26emd0lWEeavHP4GS LsLwSmfmeuk0gzuCg9ZUwuF mluOyBt HUDkrS30EEJ8sT47Nw65pEZ apACwp6azfMl6PmCuPTXtOM O3iEeiTJydo6PlKQBtZ53xc BQjb0O3 IRIihEjqwLZdSbTziIW8bL7 uKZlwtkual6axhdvcSay7wj 83gTLno3U4vXG3N0OzopG1Y GJvbGQg VtusmBTBiK8cvryhh5dzfor kSbPaXRDpYPs1RXg0PFSdxN mgTpHpII61VYA9AYFicwDqB 2FsLWFs tLquJrO7r1H3Au5IX5AKRxj lD1VUGICFPLyibYC+PC90cj 88U6RpLihgFnt1JYWdSHI0g AN3jB0h PJScQToir4B4dIG1P0UhnsZ bac8gf6soLVVsTVbfQ77itP Kzh8C8EGPcrVI3TDWbrJjhK iBzaG93 Oyc+ZPXgjMftb4YwGedpg4u yr5ccfXs2JmgqPIUvsuSloB fiWCH4o6LuXz2hMECokMJ2y DU2pV6c FrTzKvG6XCqzK432YfKckMY dUlyjS05wJ4AgtNK+PHRyPj j4RVPypTvvHW8oV2IeHQEsu mctbGVm dKbiIO7tFLUjbcofNUCdaP6 rPMDvX4q9ZyAgDwD5MCtoQ0 KuUJXbqcvjBr98xL8nKjHhB hG5XNri P2QhchN8GBEzkZWwFIbkZTH 3I11yc2S9HKTuLCGvWOV3fO K1kJ5vhZoytjjxxTQslCcqj mVydGlj EEeuCEgiU085GYLioCsuJdO vZGluZyBEYXRlOiAgMDIvMD YvMjAyNTwvdGQ+KLUfYUS8d WxlPSAn kJLfSYhqFn0bnVhhzQnlJB9 pCQIklolhOVUwfM2qYBSewV YtrUmgWH5xYROhsrvia513P iAxMHB0 LKPalQUyM9SleF0hGoBeJEZ wONUvX6WemDSeIFsfR987SE oiWvI6NSHclgNbC1QyDHJkj WduOiB0 u6O6Ua7Ve2UovcltP0LyeGR aGuFuZawsRTf7Z8HhCphtxU I+SK76DYYnMD76UAd2VPL4m WxlPSdi LGUzO0ZztM0pTyJyKOZnXFT kOyc+PHRhYmxlIHdpZHRoPS pyQAVxWnFgrOgnJD8zXm5zX GVyLWNv tMekeITzGxAxs7pvQBLyLLt pZZ2ctMuvI0QawQP6LOJls9 s9Ep07O41uM3VmcEZ+PGNvb RO0eBM5 oL1jFjYaLlT0HXnzX781YnE lyRStPmvoa2mar7wxaTn1Zp T1NENlkvBxlTwoJDC4w2BhD p72G53h IHdpZHRoPSIxNSUiIHZhbGl vmn8rwN7jZe2+KRQecOM2nN P8vW3gMwEkVxU6BKteD537N nRvcCIv Snzup4ixr5blzOb6JlKkSRC srvJftYtxNMU0x1RqXq47A4 KcjXecz8FtDgn9fi10xJFbh 6D5yRG5 N4XnRSBjqblyjQSfxLvcCB7 bMASwweqyJVMihB8uYOBrS7 i8TvKzNoW7EWclK9TqiwM6O GJvbGQg DOKwuTGJrI7lsdpdn6vzxon hEnUzMTZoFGo5FGb9PQXljN mzOaTrKFJ3EfI1YHX4yFGdt E1sgWux gkyuzI4dHjq+ZLH6gFYtdVH IDM9qEnkwfNZ+KQWlDEM5xG tjIXlyORGayH9nHOTrG4r2M iAwLjA1 HXwmP1ZlzkP0RTGnlVSvAOB gkHSBiJ1qzeriu5xqnzfaKx XaAACsTTy5HJc2HDRbhYruP iBsZWZ0 QhW8GMK1zRPjyA9eeKkmsam whR8kRgr+PvvbwOoeBBI3ZM x7K6IgNdr4VZHnqCvgVQ6sk GFkZGlu Fg1pjLpffNjnQH3fYFHxuoe lg546XsSnq0ibWCKtpZVtGP avOAD6E21vc5O0DLTzUFIoT IZ4tNF2 gO0aoJgpsivzvOLoyMwisrU nzJdxPIvwWBxfM582PKLahJ qiXbFzDHs1A5OaOkm1PSZaf KhxMB9q kYXhXUkvEe8qmBlorWpbLZ9 aVXMeegpzz874ZuNqt7ofRA AirHXpGDmdFSW5D28ms7E9F CMwMDAw IJF2jXP1oB9ouHkqtmfubOQ mdDsgdmVydGljYWwtYWxpZ2 24BPYccSxeJqVshQl8I5ZuC su5UGHw eLuhSY1egGSoSYjiZn5mnFh bbYjpAM9oYMFzsuwuv718Kc Yhg8yaUYZhnLCuLZmzTBK3R 14wu4O7 YXZnRIMoVUE9sGU9bF9lsMz nbjogbGVmdDsgdmVydGljYW ocQKmgN712TABlwTjbTyXyu GllbnQg CTycEKm8U8IwLyuhoVO+PC9 3RCIlOA73uXOxdTYfq8kpcQ u5UuPyFKDoBIA3oIhsETedr 3JkZXIt I59wrQDya8R0UFBpiHrrhDJ qLwPjxOM4jJ5dUVmyubljj3 ivotluSxmjv3lhys94aG00F 29sIHdp ZHRoPSIzMCUiIHZhbGlnbj0 jpY3mGd3+JGRamTY5hHI9rD 0fGINtOzI4PNumW734PyTus CIvPjxj n6obr3kobQv2AeT4XUWbkvF ucGohDYK2c8OuPm29H89zZK dpZHRoPSIyMCUiIHZhbGlnb f0azP4f Ii8+ARWfzQW5kAV8aT1oJrO vLaF0HVctM750ZeMzuCRtJw xmR25cG0KqiKU+MMGhRnp1M CBzdHls SY4ojBBeNBixKi5lUFV4NzU vXvUeLNzsM2RgXPOtgmnulz becCC5WDQmSFYcaL64Yd2md DogMTBw mUEJtG6heahqf9zeuazvZtV uFBUdENy3IMm9CNLamWmcNy XmXTX5SzW0XIM9qOTqzI3db Glnbjog fA2iP5QeACWhfacnTb56yR0 jAlTvLzU8WEisUmm+TUNDQU 5OLCBIRUFUSEVSIEVMSVpBQ kVUSDwv dGQ+KOTyVDN4eSprOXieJKW woV7rOGIrJ8w1UkNaIoX1NH edG3TmHHLwiufdJh29fU8gA iAwLjA1 KQioL3KqgbF2GGEytLMvTFt jPUG8R84kz7O2JBZdCURjST Z1fZH6lC9oxGpsatmsxLMlj DsgdmVy aLfsMBmeZWouN962MASzzHd yKsWkUvP7SbP6MLQ7E6WkIv n8HZHupVeqUF9afLCaHGlcB q0jqKup rSidLG3tMUMivrrbCBZhoR1 cSRNvwIUftZumNY7dCSUamq nfs599UsNzWXR3UTVclYOmH 5LumS5s SeKqRFFlNDKvR8ThrIGgSUt bZ021ULmqQnX7CQLvbcFqM0 LqKVXwwNilHcH7w3H5Ug9nP SBZZWFy czwvdGQ+UJLyQFN1cZmwUFb uRGUnjK4pGPJxP5d8WnWlFd I4AXdoB2OfXCBwxccsUp43m H2lLxCi CpZ3ZThnS9EnzvJ1MGKmaML cGTcrLRM3H79or5P5OICdKQ JrUWO2aHW9hX8vjIiqqagsn GVmdDsg toYopZfuMRjnIFhrQ068XYA vcDsnPkZFTUFMRTwvdGQ+PH EfNAI7vWxcIWntRDXujG6hF ANyX1v6 LhXyBkT4VAhiU0PxCKCmzcm kPj88nN4zLwRoRuZ1LRrvO2 PapgZ0YOKqeJYnORqaCQI6Y 62uu8U6 ROJhNQVjPDC0dQK3rT2iwBs nbjogbGVmdDsgdmVydGljYW hpWStlD556QBWsvQjuPo4TX Q30QB23 V1UaZxvpeGUkiON+PHRhYmx lIHdpZHRoPScxMDAlJyBzdH tpPF4iVp4uEFDwXQCwcSdvt HNlOiBj i3upHQPoNEuoQE3mfAbrS3D toEW9YFRfs6y2Sp51Z03zK0 JvdXA+AMZriET9lMM5bB2dV zAlIiB2 VBmqK080TgYchAGnRqlyy9z vg7fwtUt3MdTcHJFwajEbtK rtPQT0u2MwXm88O22iWDaiS HRoPSIy RWJsZQHwzMpyce2jeO9cPl2 +YTIiqLU1yJC0lE9mYoScGr N6EZtyI717GeKwrSOcVaqiO 94oT0Df dXA+UCYkDzs4LEQcoDufFT3 adEVoKOsaWv1iMKI0AkGcCb FoTFbtB6CfQJVvmweyxetzx FD4UJSb ZYCdyS91On5wpFnzSz0wTPF hAPX3RYCqhDKbJ1LlfL9nTx TaHAPyDEOdK3ThgJRrAUolG 246IGxl LwF2KRRjvhQoX4LbBLNhsMl fOhJ6c5C1Hs0RfQevkLKkVZ 5vVmItYPu2X7HtAtl0OFSkh TtnZQ6x uTGbDIynHi8veWqgqGzrIH5 fUKQttwcjr470FuLnk3enNV EuzCViFQggRVI0K21wq8E3Q CMwMDAw HRP1wMX5gZ3icXcmnvteiSJ mdDsgdmVydGljYWwtYWxpZ2 76HUQpkOylXgLKBli6Q0HoD dy8WIIk dKqnJJ9acGEjTEmcGe2phOt msTsdBF1sSKAqmmpey517Ov Aum1fgNYWhhCQrCBksQMG3E 20pc8T4 CBDpQMRhAHG8tWK5sN3ppKj nbjogbGVmdDsgdmVydGljYW noJAudG212HDKuaLbaMn0MY um5U6Vo Oxa0UMOfdKwhHI8htMEsBWp qVk5hnXcjhNjvWA1vBOUpew fxw749XqQnx4xxDCIbjEQmG GltZXM7 D16wa9Y4CWBuAENtYDE3bAZ 3eK3nzEgekygkhSPufAiyni ZqnUrkKUmbKEryC909FIYyq DsnPlBh eWVyOjwvdGQ+QJ07ne41G8G mBucfBsc4ANYsLSA6kYJ4rR 0jDDDdRNoje7T1rVD0A7Psh hHnup1s b2x (more content not included)... Normal [facility] Progesterone LCon 05-22-2024 Progesterone LC 7.6 ng/mL Invalid Interpretation Code [facility] Comment on above: Result Comment: Foll icular phase 0.1 - 0.9 Luteal phase 1.8 - 23.9 Ovulation phase 0.1 - 12.0 First trimester 11.0 - 44.3 Second trimester 25.4 - 83.3 Third trimester 58.7 - 214.0 Postmenopausal 0.0 - 0.1 Performed At: [facility] [address] [id number] J Luis Gray PhD Ph:[phone] Performed By: #### 3 [id number] ####[facility] (DEFAULT)[address] [place] [address] Provider Orderson 05-21-2024 Provider Orders [id number]#1.00 [facility]20 Physical Therapy Note [id number]#1.00O [facility] 25(OH)D3 [facility] 25-hydroxyvitamin D3 [Mass/Vol] 28.8 ng/mL Low 31.0-80.0 [facility] Comment on above: Order Comment: Speci men Type: BLOOD SPECIMEN Ordering Facility: [facility] Address: [address] [place] [address] [place] [address] Result Comment: Clas sification of 25 [place] Vitamin D status: Deficiency/Insufficiency: < or = 30 ng/ml. Sufficiency/Optimal Levels: 31-80 ng/mL Toxicity: > 100 ng/mL. Test performed by chemiluminescent immunoassay. Performed By: #### 5 5454-3 #### [facility] CLIA [id number] [address] [place] [address] [place] C. trachomatis+N. gonorrhoea e DNA AC+probe Ql (Unsp spec)on 04-02-2024 C. trachomatis rRNA AC+probe Ql (Unsp spec) Not detected Normal Not detected [facility] Comment on above: Order Comment: Speci men Type: BLOOD SPECIMEN Ordering Facility: [facility] Address: [address] [place] [address] Performed By: #### 5 5454-3 #### [facility] CLIA [id number] [address] [place] [address] [place] N. gonorrhoeae rRNA AC+probe Ql (Unsp spec) Not detected Normal Not detected [facility] Comment on above: Order Comment: Speci men Type: BLOOD SPECIMEN Ordering Facility: [facility] Address: [address] [place] [address] Performed By: #### 5 5454-3 #### [facility] CLIA [id number] [address] [place] [address] [place] CARRIER SCREEN, EXPANDEDon 1 06-03-2023 CARRIER SCREEN RESULTS View results in S canned Documents link when available. Normal [facility] Comment on above: Order Comment: Speci men Type: BLOOD SPECIMEN Ordering Facility: [facility] Address: [address] [place] [address] Performed By: #### 5 5454-3 #### [facility] CLIA [id number] [address] [place] [address] [place] CMV IgG Qnon 04-02-2024 CMV IGG QUAL Negative Normal [facility] Comment on above: Order Comment: Speci men Type: BLOOD SPECIMEN Ordering Facility: [facility] Address: [address] [place] [address] Result Comment: No s erological evidence of past exposure to Cytomegalovirus. Cannot exclude recent infection if the specimen collected within 4-6 weeks after infection. Performed By: #### 1 989-3, RIO, 7852-7, 7853-5, VZVG2 #### [facility] CLIA [id number] [address] [place] [address] [place] CMV IgG SerPl-aCncon 024 CMV IgG Qn <0.20 Normal [facility] Comment on above: Order Comment: Speci men Type: BLOOD SPECIMEN Ordering Facility: [facility] Address: [address] [place] [address] Result Comment: The magnitude of the measured result is not indicative of the amount of antibody present. U/mL values are interpreted as follows: Negative <0.6 Equivocal 0.6 to <0.70 Positive >=0.70 Performed By: #### 1 989-3, RIO, 7852-7, 7853-5, VZVG2 #### [facility] CLIA [id number] [address] [place] [address] [place] CMV IgM Qnon 04-02-2024 CMV IGM, QUAL Negative Normal Negative [facility] Comment on above: Order Comment: Speci men Type: BLOOD SPECIMEN Ordering Facility: [facility] Address: [address] [place] [address] Result Comment: No s erological evidence of recent exposure to Cytomegalovirus. Performed By: #### 1 989-3, RIO, 7852-7, 7853-5, VZVG2 #### [facility] CLIA [id number] [address] [place] [address] [place] HBV core Ab Ser Qlon 024 HBV core Ab Ql (S) Negative Normal Negative [facility] Comment on above: Order Comment: Speci men Type: BLOOD SPECIMEN [facility]ing Facility: [facility] Address: [address] [place] [address] Result Comment: No e vidence of current or past infection with Hepatitis B virus. Should recent infection be suspected, repeat testing may be considered 3-4 weeks after this draw. Performed By: #### 1 6933-4, 5195-3, 92429-7, 09015-6 #### [facility] CLIA [id number] [address] [place] [address] [place] HBV surface Ag Ser Qlon 03-18 HBV surface Ag Ql (S) Negative Normal Negative [facility] Comment on above: Order Comment: Speci men Type: BLOOD SPECIMEN [facility]ing Facility: [facility] Address: [address] [place] [address] Performed By: #### 1 6933-4, 5195-3, 16056-9, 84958-9 #### [facility] CLIA [id number] [address] [place] [address] [place] HCV Ab Ser Qlon 04-02-2024 HCV Ab Ql (S) Negative Normal Negative [facility] Comment on above: Order Comment: Speci [facility] Type: BLOOD SPECIMEN [facility]ing Facility: [facility] Address: [address] [place] [address] Result Comment: The result suggests no evidence of active infection with Hepatitis C virus. Should recent infection be suspected, repeat testing may be considered 4-6 weeks after this draw. Performed By: #### 1 6128-1 #### [facility] CLIA [id number] [address] [place] [address] [place] HIV 1+2 Ab IA Qlon 4 HIV 1 and 2 Ab IA.rapid Nom (S/P/Bld) Normal [facility] Comment on above: Order Comment: Speci men Type: BLOOD SPECIMEN [facility]ing Facility: [facility] Address: [address] [place] [address] Result Comment: Test not indicated. Performed By: #### 1 6933-4, 5195-3, 07446-0, 20085-9 #### [facility] CLIA [id number] [address] [place] [address] [place] HIV 1+2 Ab+HIV1 p24 Ag IA Ql Non-Reactive Normal Nonreactive [facility] Comment on above: Order Comment: Speci men Type: BLOOD SPECIMEN [facility]ing Facility: [facility] Address: [address] [place] [address] Performed By: #### 1 6933-4, 5195-3, 88357-6, 60429-8 #### [facility] CLIA [id number] [address] [place] [address] [place] HIV immunoassay testing algorithm interpretation (S/P/Bld) [Interp] Normal [facility] Comment on above: Order Comment: Speci men Type: BLOOD SPECIMEN [facility]ing Facility: [facility] Address: [address] [place] [address] Result Comment: No e vidence of HIV-1 or HIV-2 infection. Should recent infection be suspected, repeat testing may be considered 2-3 weeks after this draw. [place] Rev. Code 3701.243(E): This information has been [...] diagnoses. Performed By: #### 1 6933-4, 5195-3, 36398-3, 96509-6 #### [facility] CLIA [id number] [address] [place], [place] [address] [place] HbA1c (Bld)on 04-02-2024 Average glucose Estimated from glycated hemoglobin (Bld) [Mass/Vol] 85 mg/dL [facility] Comment on above: Order Comment: Speci men Type: BLOOD SPECIMEN Ordering Facility: [facility] Address: [address] [place] [address] Result Comment: eAG: (Estimated average glucose) is a calculated value from HgbA1c and is sales representative electric service of the average blood glucose level in the last 2-3 month period. Performed By: #### 5 5454-3 #### [facility] CLIA [id number] [address] [place] [address] [place] HbA1c (Bld) [Mass fraction] 4.6 % Normal 4.3-5.6 [facility] Comment on above: Order Comment: Speci [facility] Type: BLOOD SPECIMEN [facility]ing Facility: [facility] Address: [address] [place] [address] Result Comment: Amer [place] Diabetes Association guidelines indicate that patients with HgbA1c in the range 5.7-6.4% are at increased risk for development of diabetes, and intervention by lifestyle modification may be beneficial. HgbA1c greater or equal to 6.5% is considered diagnostic of diabetes. Performed By: #### 5 5454-3 #### [facility] CLIA [id number] [address] [place] [address] [place] RUBELLA IGG ANTIBODYon 04-02 RUBELLA IGG AB, QUAL Positive Normal Positive [facility] Comment on above: Order Comment: [facility] Type: BLOOD SPECIMEN Ordering Facility: [facility] Address: [address] [place] [address] Result Comment: The result suggests recent or past exposure to Rubella virus or history of Rubella vaccination. Positive result may also be seen due to presence of passively-transferred antibodies. Please correlate with patient's history. Performed By: #### 1 989-3, RUBIGG, 7852-7, 7853-5, VZVG2 #### [facility] CLIA [id number] [address] [place] [address] [place] Reagin and Treponema pallidu m IgG and IgM [Interp]on 04-02-2024 T. pallidum IgG+IgM IA Ql (S) Non-Reactive Normal Nonreactive [facility] Comment on above: Order Comment: [facility] Type: BLOOD SPECIMEN Ordering Facility: [facility] Address: [address] [place] [address] Performed By: #### 1 6933-4, 5195-3, 15749-2, 86862-8 #### [facility] CLIA [id number] [address] [place] [address] [place] Reagin+T pallidum IgG+IgM Se rPl-Impon 04-02-2024 Reagin and Treponema pallidum IgG and IgM [Interp] Cannot exclude recent Treponemal infection if specimen collected within 7-10 days after appearance of suspect lesions or 2-3 weeks after an exposure. Clinical correlation is required. [facility] Comment on above: Order Comment: Speci men Type: BLOOD SPECIMEN [facility]ing Facility: [facility] Address: [address] [place] [address] Performed By: #### 1 6933-4, 5195-3, 14991-1, 55722-7 #### [facility] CLIA [id number] [address] [place] [address] [place] TYPE + SCREEN PRENATALon ABO A [facility] Comment on above: Order Comment: Speci men Type: BLOOD SPECIMEN [facility]ing Facility: [facility] Address: [address] [place] [address] Performed By: #### T SPN #### [facility] CLIA [id number] [address] [place] [address] [place] Rh Nom (Bld) Positive Normal [facility] Comment on above: Order Comment: Speci men Type: BLOOD SPECIMEN [facility]ing Facility: [facility] Address: [address] [place] [address] Performed By: #### T SPN #### [facility] CLIA [id number] [address] [place] [address] [place] TYPE AND SCREEN EXPIRATION 04/05/2024 23:59 [facility] Comment on above: Order Comment: Speci men Type: BLOOD SPECIMEN [facility]ing Facility: [facility] Address: [address] [place] [address] Performed By: #### T SPN #### [facility] CLIA [id number] [address] VARICELLA ZOSTER IGGon 04-02 VARICELLA ZOSTER IGG, QUAL Positive Normal Positive [facility] Comment on above: Order Comment: Speci men Type: BLOOD SPECIMEN [facility]ing Facility: [facility] Address: [address] [place] [address] Result Comment: The result suggests recent or past exposure to Varicella-Zoster virus or chickenpox vaccination or zoster vaccination. Positive result may also be seen due to presence of passively-transferred antibodies. Please correlate with patient's history. Performed By: #### 5 5454-3 #### [facility] CLIA [id number] [address] [place] [address] [place] [facility] Coding Summaryon 03-20-2024 Coding Summary [employer]Base 64 UlfgbmiwDTx8bNr+PGhlYWQ +NL8OXNPtS70kzVDjvA8jK5 NMTElOSywgQVBQTElOSyIgb hHeBU3gzMTdNODv IC8+AY6qSGDfCfsvaTDfm7J 7qWH2R56twv0uHPilxMH3BF SwAnKkajaby2jcuTc8KKghY mluOyBt HSJyjX84KQW4tA56Ei15sIR uuVRhp5uxvQu2VqVkNYWzXK M4rJtcPRqpw8EuPGPbR69zd LVbf0H5 OHDdjSbokHXlKpIcjCN4qW9 pKJblqxqfi6kkczffIcx0dm 95oQPpc1T4nDY9U2XimlX8V GJvbGQg SllmyUERkX8cjdoiy7czsye fBaHpFKJlMZw8GPs8MUIljU iwBqLfRY42SXA4SHDmcfGuN 2FsLWFs tGatCiT3d4C2Jb8SY7AMXsw bT9JRXCJTFKsucWB+PC90cj 22N8MbWzrfBfa7IXHbQNE6a WD3xN4o CIUwMUwjx4L4dXX7R4VdcyQ qpj6au7wfJFTtGMfvM12deO Mcv6G7YGOnuZY2MEXdrLonX iBzaG93 Oyc+XYLayYmgw7ImXbsfx4v ql5qddQe7BixzZJAhqhAnnE voNIL7p6KeAr8wWGIemHN1l LF6fF3l MfOzGpP4YXqkO650ZpEaoAO uBgrzU22cN6FepSE+PHRyPj q4MDOqmNzoSP1sJ1YvPMVlr mctbGVm hFtrKB4yRNDnavqeODYykE7 xPMYmE6c8ArCjCrN0BZvdS8 JvZVGkljlwWl63cN4aWhNxQ jE6MBno H8BiiuN9WHSjbQWePGgmLHO 8S22fp8P2HOYrVLCfTAW5wD F5vC1qmQqphcuuwJDucAhrx mVydGlj GZydVFluF678SNNwbBjsAhD vZGluZyBEYXRlOiAgMTIvMD MvMjAyNDwvdGQ+RAPcSRK8y WxlPSAn lSFpYFewOe1xiHqrcQebNG0 aJTVkzlspMYDovO7tQOObxY YtzKnpAT1yXEUclicuf222T iAxMHB0 KIHpcXAjX9MgsH2qOaCkVHB lGOQmE9JrbELdNOytL134FT gxBpP8MTAchtDeR7NmPDPub WduOiB0 d4J6Be7Kj2CbuvwfW7NmbJB yDnPgTdbfKNp7I8BwXnjajQ I+ZY30XHOyGL39YHg3ZWA7w WxlPSdi HVQzN6LnvZ7lXqEfOTRaJOT kOyc+PHRhYmxlIHdpZHRoPS nlHBDuXbKtmXcfGK7dLg0lN GVyLWNv pUgbrXKpJpQlq9rnKOTvXGi xLC2hzCxjN4EucUB9PZTqq4 i7Lu98S28xC1XlqCL+PGNvb ZD3bUL1 uP4rIsEbRhJ5SDebE351GfN etQXcJhgre4ouf6timVw9Le D2GJRewmPxiYatMSI1n5GrZ e70O44o IHdpZHRoPSIxNSUiIHZhbGl aow4ebV6aDp3+CXYqlMX1xX G6lW8mHoGgRuP3KAkeB064F nRvcCIv Jhwid5sda3kmuTw7LfCaQYA awoJmkHjcXYM4d2FpQc82S1 YweAfqw1BhWba4yf34xLFao 4H9rGA5 R6LkEQKkwgyjuEZumEweEG4 oAJTgocelFSYleZ2tHARjI2 a6IlDlKyK6JQbpA1TdtyR7T GJvbGQg DKFlmQZGvX3xcklwu3xsnna gBpVgBDGnWTy9JIs2JHGvqJ hsNoFcIXY8VsX1RNK8xNHrl L7hbClk djwulU0wJtg+XEI8sHHcwRD FPW7sYznfvEQ+FQHhVOK1pQ sfPMbpAFPwbC0vJRYyG4e1E iAwLjA1 QEvoX3HydoW9XXRriABfJAP wzYDIsR8gpfckz9dwxuveUr VzJBItXFs5CCo0YXHzvYmzG iBsZWZ0 OkS9TJZ0bPZmsB2jhVnsabl ilB9yUdp+HnhduPoxHXM2BG h0E0BzJio6PQCdbLltFC2wv GFkZGlu Ai8qiOgbaJcyBK5dIXVzcny cc700XkJgy0coHQVqsANsSB czQVE6K29ia5A1QKGiSRNnD GO6yMN5 sI2tyJoldqbtzBUzoRjdsxG dfCjkGRcuJNcrN699ZQLneA zvPmTiMLb3G8WhXzc2TDCqq GksQF2c mFFnNKjoZh6ahCxgmTcfUD1 lHOPouhmxl833RsWma1uiLT XvzPEaQPhnSTS3K98du8N9T CMwMDAw GUL1lHP2yR8xjHazmppbpZO mdDsgdmVydGljYWwtYWxpZ2 67IQMmkCvbIbAyxZj0L1DjG cq5HAWl kKiySW4wzJTnPZmjCp8vfPy ukZirPU7jSEPebmfyh140Qp Eli1pfKWFxpGAuLOjnFWR2J 75ys4K6 MJWvPXCnDHR7dNV1mQ1lzFj nbjogbGVmdDsgdmVydGljYW vwOTbpF450CXRtdNhlUkYpx GllbnQg MBgnHLo3K3YxTyqjoAB+PC9 0DTPhIV69yKXkjSRlp4lmnQ u3LuSvXDZdIDE6lFxaNIckm 3JkZXIt Y29ioGPwo0N8LBYddJoruCP aVmBkuUV8nJ9fCGyikgype7 gmpipyJarvd7ybqf48rS68Z 29sIHdp ZHRoPSIzMCUiIHZhbGlnbj0 zcA0rRy0+FOXlcSB0dIV8qP 1sVXEtVhU7JVycH574EmLny CIvPjxj x3ytr6msqIy7IeY0RUIqbvI fpWvlGQV1d5QuLi15B24zLB dpZHRoPSIyMCUiIHZhbGlnb x2bjM9c Ii8+AKFqhUC8sEO0aK4wKaV eZvW1VOefU763SyNbqTYvFo tvM28nX7KgzLK+RCNvPtt6I CBzdHls MX6ggLVpDAeeBj1iQXF9XxD rZpSpJWnxK4WcGKXxmlaioe lijEX7PEKxODSnyT20Wy0mu DogMTBw hEWCgL5msfigv0gaqqgxHfT fOEUiVUe7KSj7UNWvhXcsSa YuEWY6ZuB0XJE3hJUvuS1jx Glnbjog cG3aA7DtMDIttglgRu05sT7 xSdBlNiH6ROyuHdk+TUNDQU 5OLCBIRUFUSEVSIEVMSVpBQ kVUSDwv dGQ+ETObMKS8lBhhFXcjGGG ohS1mVGTtH3m3YqWfXhH9JC czX8KjGPMdrbwjIb03bJ7tA iAwLjA1 CKpxW6NoteR1HOAekNEtKSq rACI5Y29dj5A5RKUuBHYiPQ P0jGT1sR8vlAiogoyhqEMba DsgdmVy zVpiCDqeHDjaC984ZOWmwPm bEeCxVkT0AgY5DFT2D6OcWv t8PUJutQomQH2utAZmVWywU x0qwGgy qXqxYK4tKAGsaanpKFJiyR9 zJEOnjTUwpQrdHC9hTZEkpr qpt127ClStQXF4IEMgaPBnY 3ZedK7o JfCnDQFmKTMiU4YreERgWPb iB974YJjvUxX4KHSzuhPzA0 OoPTHnfJvyEqG6o4E3Zm1sD SBZZWFy czwvdGQ+ITJkKBS1qPllWTn cZHKikM2pCNWlJ0s4PdEvEz Z3DKglZ2IbBRJizwhzSu03q O9pDhQf XuL6BNcrC1TemmU9NUCjxRD dRCbxOJL8G33do0V0HODaVE DxPXJ3hRZ5jJ1mwSfmbcznz GVmdDsg bcFucSmxXXgvMGylR956SFJ vcDsnPkZFTUFMRTwvdGQ+PH SpGPE5lVptQUbbABAwmD1oT POwE0w1 YlSmGvL1MJnaT5IbRNUcxpv hZe32cV4dVbEqVqZ8VDnqT3 CnbtU7WNExzIOiJSzeTEK3G 52ow1Z2 RAGrABMxYUC3vIR1cF8xkYs nbjogbGVmdDsgdmVydGljYW qbRJkjT399EUKbbWqbDcBfG 3Vycmlu GjNPrIPbPBVuIA45FN05AD4 5M3VfLmzpcIWvmMX+PHRhYm xlIHdpZHRoPScxMDAlJyBzd KnuEE8h Gw3dLUSzRHCfeBtmuCMiEdQ dk8pzMGTjTSawHW5dtXopB7 XjmWS5EPIqz6x6Zh64I62eT 3JvdXA+ XZDoaCY0wIS8wI9fFpUiSaY 8IBgsP693ZuVbbWIuQksur5 jvi7xauGv8ZzZhBYIjmqTjw WduPSJ0 g3NcAm67H83aXBpnGYCzEHJ yMCMvMPTgyObevx8keU1aLx 8+SWWfoOG4sGX0sK5yGpCfI kE0NFjc M019BbCrcASlXmqpV44gQ7J vdXA+HLGmYnw5YZSoaIadIK 6njPXdYYnzQu1iORC3AiZlM jIwMGlu N2RnFTJgreoudqwvzGZ2PFX zEKAyrK71Dx4znDkdBf6iTQ LlJOO8FFSdvVZxO7JhfN3qI iAjMDAw ZALnF0HspCBtBXvhW506FHl hElT6ANCitwEgA1CmOVUxrW khSdK2z3P6Cy6GvCgwhGNvJ E2fYuHa WTf5V0WwCsw8ONQkoMlzCF7 xrCRjJIueSl1ozWpfbNckJR 6pHNGqwzmzq182JyUpa8vsY DEwcHQg HHrxDXS7I43pu5E3WVJbEPV lHMU5gTJ1jW0chBgcpjtqfY VmdDsgdmVydGljYWwtYWxpZ 246IHRv fOmpIcGJJul9P3VwPez7EUF jhHzcJN9ofWGqXDabSv4evI ujyGjtBZ0gXZLrqzogr861F zGbi4kz GINlcKEhCTjmEYW9J01ql5O 8HDXqHPKzQZU2bFN2vT9wkR lnbjogbGVmdDsgdmVydGljY WwtYWxp Q017ATFwiNurHw7WImz7T6K vQoz5BZLvrInwUR0znWQnQF avLv2whLplrNmsUP5fQQSlv bioq736 NrKeg5ziQMOzxQCkLMlwIIB 2F46ve0N7GNNnPXOhDJW2vY X5oN8qnHbkpyeibPEunHgws mVydGlj MVorKMrxH244NJXqxVfwNsV heWVyOjwvdGQ+AE29za42Q1 ZwEvynMrx6EYZoRYZ9vQG4s X5rBKXd [facility] (more content not included)... [facility] Provider Orderson 03-07-2024 Provider Orders [id number] [facility] [id number]#[id number] [facility] .Auto Diff 1on 02-29-2024 Auto Fannin % 3 % Normal 04-29 [facility] Comment on above: Performed By: #### 1 [id number], [id number], [id number] #### [facility] (DEFAULT) [address] [place] [address] 53099 Baso Abs# 0.0 x10 Normal 0.0-0.2 [facility] Comment on above: Performed By: #### 1 [id number], 1792361, [id number] #### [facility] (DEFAULT) [address] [place] [address] 32092 Basophils/100 WBC (Bld) 0.3 % Normal 0.2-2.0 [facility] Comment on above: Performed By: #### 1 [id number], 5676236, [id number] #### [facility] (DEFAULT) [address] [place] [address] 21159 Eos Abs# 0.0 x10 Normal 0.0-0.4 [facility] Comment on above: Performed By: #### 1 [id number], 3710614, [id number] #### [facility] (DEFAULT) [address] [place] [address] 36673 Eosinophils/100 WBC (Bld) 0.1 % Low 0.9-4.0 [facility] Comment on above: Performed By: #### 1 7449639, 9826147, 4577474 #### [facility] (DEFAULT) [address] [place] [address] 19875 Lymph Abs# 1.5 x10 Normal 1.3-2.9 [facility] Comment on above: Performed By: #### 1 [id number], 2613725, 8166622 #### [facility] (DEFAULT) [address] [place] [address] 25879 Lymphocytes/100 WBC (Bld) 16 % Normal 14-48 [facility] Comment on above: Performed By: #### 1 0863302, 8831115, 4214010 #### [facility] (DEFAULT) [address] [place] [address] 14525 Fannin Abs# 0.3 x10 Normal 0.0-0.8 [facility] Comment on above: Performed By: #### 1 3337580, 9349400, 5860318 #### [facility] (DEFAULT) [address] [place] [address] 19178 Neut Abs# 7.8 x10 Normal 1.5-9.2 [facility] Comment on above: Performed By: #### 1 [id number], 8383012, 0746026 #### [facility] (DEFAULT) [address] [place] [address] 51685 Neutrophils/100 WBC (Bld) 81 % Normal 44-88 [facility] Comment on above: Performed By: #### 1 9889045, 6254148, 7922510 #### [facility] (DEFAULT) [address] [place] [address] 20394 CBC w/ Auto Diffon 4 Erythrocyte distribution width (RBC) [Ratio] 13.9 % Normal 11.5-15.0 [facility] Comment on above: Performed By: #### 1 [id number], 3814184, 6435350 #### [facility] (DEFAULT) [address] [place] [address] Hematocrit (Bld) [Volume fraction] 45.3 % High 33.7-40.4 [facility] Comment on above: Performed By: #### 1 [id number], 1543854, 6567063 #### [facility] (DEFAULT) [address] [place] [address] Hemoglobin (Bld) [Mass/Vol] 15.5 g/dL Normal 11.3-15.9 [facility] Comment on above: Performed By: #### 1 [id number], 2755282, 7977084 #### [facility] (DEFAULT) [address] [place] [address] Man Diff? Auto Invalid Interpretation Code [facility] Comment on above: Performed By: #### 1 1136716, 7566775, 7806479 #### [facility] (DEFAULT) [address] [place] [address] MCH (RBC) [Entitic mass] 29 pg Normal 24-34 [facility] Comment on above: Performed By: #### 1 [id number], 5965126, 8341013 #### [facility] (DEFAULT) [address] [place] [address] 05356 MCHC (RBC) [Mass/Vol] 34 g/dL Normal 26-37 [facility] Comment on above: Performed By: #### 1 0839906, 8554071, 2976015 #### [facility] (DEFAULT) [address] [place] [address] 74265 MCV (RBC) [Entitic vol] 86 fL Normal 81-100 [facility] Comment on above: Performed By: #### 1 [id number], [id number] #### [facility] (DEFAULT) [address] [place] [address] 25704 Platelet 213 x10 Normal 138-427 [facility] Comment on above: Performed By: #### 1 [id number], [id number], [id number] #### [facility] (DEFAULT) [address] [place] [address] 18179 Platelet mean volume (Bld) [Entitic vol] 6.8 fL Normal 6.3-10.2 [facility] Comment on above: Performed By: #### 1 [id number], [id number], [id number] #### [facility] (DEFAULT) [address] [place] [address] 12819 RBC 5.28 x10 Normal 3.70-5.30 [facility] Comment on above: Performed By: #### 1 [id number], [id number], [id number] #### [facility] (DEFAULT) [address] [place] [address] 50408 WBC 9.6 x10 Normal 3.5-10.5 [facility] Comment on above: Performed By: #### 1 [id number], [id number], [id number] #### [facility] (DEFAULT) [address] [place] [address] 69266 Ferritinon 02-29-2024 Ferritin [Mass/Vol] 20.6 ng/mL Normal 12.0-150.0 [facility] Comment on above: Performed By: #### 1 [id number], [id number], [id number] #### [facility] (DEFAULT) [address] [place] [address] Iron Levelon 02-29-2024 Iron [Mass/Vol] 61.0 ug/dL Normal 28.0-170.0 [facility] Comment on above: Performed By: #### 9 [id number] ####[facility] (DEFAULT)[address] [place] [address] 11268 [id number] 02-28-2024 HNO ID: [id number] Author: IGNACIO GUY MD Service: ? Author [...] for three cycles. They will meet with FIRE RANGE TECHNICIAN to review the IUI checklist and sign consents. I spent a total of 45 minutes on the date of the service which included preparing to see the patient, mlri-xl-qdpb patient care, completing clinical documentation, counseling and educating the patient/family/caregive r, and ordering medications, tests, or procedures. Ignacio Guy MD Normal [facility] CNOVon 02-28-2024 CNOV Office Visit (REIBD) JAZ SANDERS ([id number]) 1995 F Date Time Provider Department 02/28/24 2:00 PM IGNACIO GUY REARLET During your visit today, we recorded [...] OB History Obstetric History No data available [employer] SAL[employer] HOST/HOSTESS HISTORY: Patient's last menstrual period was 02/18/2024. 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 They will meet with FIRE RANGE TECHNICIAN to review the IUI checklist and sign consents. I spent a total of 45 minutes on the date of the service which included preparing to see the patient, nmrw-bh-adxg patient care, com (more content not included)... Normal [facility] IGP,APTIMA HPV,AGE GDLNon AGE GDLN ACOG TESTING Note . [facility] Comment on above: TESTS RESULT FLAG UN ITS REF RANGE LAB Clinician Provided Cytology Information Source.............Cervix;Endocervix No. of containers..01 ThinPrep Vial Age Algo ACOG Amaya... FLAG LEGEND: L-Low Normal,H-High Normal,LL-Alert Low,HH-Alert High <-Panic Low,>-Panic High,A-Abnormal,AA-Critical Abnormal Performed at: 01 =[address] [address] Dagmar Love MD, IGP, RFX APTIMA HPV ASCU Note . [facility] Comment on above: TESTS RESULT FLAG UN ITS REF RANGE LAB DIAGNOSIS: 02 NEGATIVE FOR INTRAEPITHELIAL LESION OR MALIGNANCY. Specimen adequacy: 02 Satisfactory for evaluation. Endocervical and/or squamous metaplastic cells (endocervical component) are present. Performed by: 02 Edel Sewell, Manager Regulatory ([facility]) . 02 Note: Note 02 The [...] <-Panic Low,>-Panic High,A-Abnormal,AA-Critical Abnormal Performed at: [address] [address] Dagmar Love MD, Performed at: = - [facility] [id number] Operations Business Partner: Dagmar Love MD, Phone: [phone] Performed at: - [facility] [id number] Operations Business Partner: Dagmar Love MD, Phone: [phone] BRUSH-SPATULA CERVIX ENDOCERVIX [facility][note 3] Coding Summaryon 02-20-2024 Coding Summary HTMLBase 64 AnncuxbqCXr0fDn+PGhlYWQ +KH7FARShQ00pnUSbiZ2mU9 NMTElOSywgQVBQTElOSyIgb aRsRT2bzMKdUNGi IC8+FF2fZZWcFknjkXRwm5P 8eOA8B29nmz2vZPcxaSH3SM YuTyJtergfn1hchTw8IAjcH mluOyBt ZEZjaR09BBU5fJ04Tr26bXB riNCuc1ulbLa7OsKjNLClJA C6tIypTZlvw9DmEUHaV81dc RGzh9M0 OYSxhCcimFAxQmNkkBM9gF4 lGEnlerlog7labmhwCfv3ij 33qNWsl9F0nRC7M1MwatU0Q GJvbGQg NrelpWYItO7yxdypo9fqbkm jLwXuLHOpRJy4MEb4FBPfwY ztRzNrCH75FRH9ZQCiwdZuO 2FsLWFs aSimXaG8o5K9Zm5OA8MCOeq bM5CBPRLEZTtzbLX+PC90cj 05Y9MwCdwvMhe1BIWsXBA9l QK8lC4e AUKvBGxjx7Q5jYX8D8TtrgL wjr0oy1smSAVwMWnkH95hrB Qda5H0DQNpwLV4OZDjnCakC iBzaG93 Oyc+AEOikIgtn1TbBzgoc1d dq9rhzVv4YrosYKAzgvOrmU fiEWY5y6AqOj7bARRjtLT7x RZ3pK6y GrAuNxF1HSimV321PfKjgUF oPvvjI19vA5OnbOB+PHRyPj h9EGBcmYjpKP7jX9ZaFRMtv mctbGVm cAgjJG4mIPCcbpdyZZGcsY2 zQBNaW0l2DhUhAvZ7ITtiJ6 LsLYDxssiuDe84eQ2vUdQtT kP5HWrr K7TttkV4RKFtyLIjTHxkGEU 4N21mb0X5ZNFvWSVrBRM3yE V6kS1zuOiujoiezQCbkCzml mVydGlj KDseAEqnK397TUEprDltYtS vZGluZyBEYXRlOiAgMTEvMD QvMjAyNDwvdGQ+GTUjHNF9i WxlPSAn eIEuDUydBa0crFbohWkpQE8 hPJZarqwpKIZlpN2kVLEdhI MulKiiJA2sTFTqylgra420Q iAxMHB0 JOHmzHJsF2MftX0jZjQuJBW mRERrX9TbeJLwXAxmE446XY luDpR9LFKjeyVxM0EbWZHpd WduOiB0 m1P9Mv5Qu9OwxxkxF7YodFI vNcJrEgvrCRc4J3CrPoqbkM I+OB60ZTJhKF16UJo4OBX0m WxlPSdi DKCeS0VveX3cJpXdUALyNUR kOyc+PHRhYmxlIHdpZHRoPS kpQSSgCzTesLgoML4pSx9aP GVyLWNv oFtojKFlZyScp8vzCHKwGOs lKA0crBzzT4UskEP0HZAnh3 n6Ck31Y91yM6DgdQM+PGNvb SO4kAY5 lX9zAsRzWmH3MKpyE417HlH cdINdCbxlu5sdr7ogcHg2Xg I5HBWtarQjyDsjDGE1h8SfP z85J05j IHdpZHRoPSIxNSUiIHZhbGl hcb0ukU4aBl7+DXHaxCY5dI P7aT0gIgLxBzI4SPpsL992G nRvcCIv Swqeo6seo5iksXq1CpThHXZ oixNwyNgpSVL4u9RlSl43Y2 WuvVsqa5VaAyc7br61xGWvr 8N2zOI6 A0TqIMZsdtnnsNTbzBtvBA2 gEPQrujdxHDTfiG8mWNVxJ4 q6PaVqKnC2IElyN0GtmaI6P GJvbGQg GJArtUJLrY1rcucxj5tjzfm mFyVaNFCcNVy3MBo5RYLszA btDzDkGIU4HtG1NBG5eOQhp H6ztVmw egmuhL1jSzd+ZJQ2aYThnKX QFL2xEskfgOH+XYDnNGI6wE ivNDjjRIGxiN8eMWDvX4t7X iAwLjA1 QAxrJ5NwxlH5BGMqnSWwXWC abJTRwF2mqtbbz0bkkjexNz SgCVWsWTo5IRg6WBTqfQwkO iBsZWZ0 DaS0SYS8fTKmiV2uuJbgrka keL3bBoq+MpuahNtrRPF1QJ s1Q8ReQgz9QLUysZejST3bm GFkZGlu Ns0yvDgwmKriXO6iSYVslfl cp472YrVxp1pzSFGhrTNbTB ltCPI4S41io6J7WOIbWJTuS VD3yTS8 tI4ehZmtuspwlUGixQrvmjB vsGfmALxjYUrqG692UXMggD yvFbDxQMz4T8NvImt2DEXmg MihNX2m zCQqSFgcEk3nkNprhEcdOW3 yDDVspocfp698XzKft6cfYD FejQToIUlzWCU5E70st3H9X CMwMDAw KFZ3mVE3jA7saPdrythvkLZ mdDsgdmVydGljYWwtYWxpZ2 76YOSfmVtzOpQxeSs5A4JsL nu0VCCh iEvtPU2urFXcKKlpBq9hdGm mvHwsIW3aEEDoqocvf267Yi Adv5dtLKJycBQgXYrfPWB5T 98yn6U5 XMApIODhGGP2iAR4zV4bsZe nbjogbGVmdDsgdmVydGljYW cjFGvnI165UYEowMclKiNof GllbnQg QRnuQNj7V5RlEbcntNS+PC9 6GXHdGJ77zFQruWVpe8cjfV h6EuRtWSGnNZC2tUppPTrgr 3JkZXIt K80puMFbo0B9WRExeOlavHZ lFeVoiDP3qN2zFKxjhezkj8 zoglleHaunq3vgxs59kG95V 29sIHdp ZHRoPSIzMCUiIHZhbGlnbj0 tfA6pBj8+NXMkmPV7mHS5hA 6qCVJjBxA0LRqdG506BlFlj CIvPjxj f5jpe0aukFv4YyL8QKSwajV hvUyyTNV6a9DfSs80M19cGL dpZHRoPSIyMCUiIHZhbGlnb i0ciK0i Ii8+PBLvvQK3zAX3cY5vKgB mRmI7XSoyX024UjVzuTNvDe sbK65uU8PdxRC+APMdXxb4W CBzdHls IJ2kcTWeJKonHq2lKWY0EiH nBmCaPAgsX5DbXYVlnyhnqz oqaUJ6IMQtPSMkvT53Xj9mt DogMTBw mNGVbY7syrvqp7avegziZcN lQAKxXCx2JIt9WKMynGbeYc ByHCX0RzU7RNT9wNQtkX4vi Glnbjog oO2eE9WhIYTqwlhdKu13xQ4 sBkSzFiP5OWawUuz+TUNDQU 5OLCBIRUFUSEVSIEVMSVpBQ kVUSDwv dGQ+HEFqJUW2iRpyTEgfLIG huP4jPREpB0l1GmOyWlM0CL rrH3KaHNCzgejbPn91kR7sM iAwLjA1 IOyqK3PkkiE8XFQytGCuUBh dJRB7G90gp8D4SGHnOIQuRL Y2cDH2yC8maUstdbixfECem DsgdmVy tHgrFIqdHVzdM482NRSrvLy fMhEzLfK7GnC1PEB7N2YdOo f4XILpzZfvLI8nbRPpCRciX h5efDhr eGmzDD1jLFIcsoajPWRodB0 uNKKzbXHxuUdeEE8yOWLlnf lhz464DbGyZMW6ZVVkhOVzA 3RnqZ0a HjGsMCKhFFOsE9DbyBTaCDg aM696LMndBkZ4TTEbfpAaJ3 BgMHIplHliFyG6n6I5Lb7kT CBZZWFy czwvdGQ+NWSrKGO3nCyuGNi zYCCgaE6oIYNbE8v3KcDySf V5XQhjK4UrPZLdgtapBq62m U6cBqMq VtF4MFhnX9SabxK0JFTsnPX eKUlmIWA8F30sp5B1PILxST JgPIA1wBD9yU2ypUgajbwxe GVmdDsg anBhoDfuIGfnHQzsV294TCH vcDsnPkZFTUFMRTwvdGQ+PH KvHFX2hFcaKLdiAGWdvM1hH PZdQ1r5 JjMpMiO3XUznA7WuUAYtxsa wFb76pB5zCdZdCjM7DXtmI9 YlkcV1WAXgfBWdFUjsDMY4P 27qe4U6 VZFkVLHfQPU4lPW5wC9apZy nbjogbGVmdDsgdmVydGljYW nzDHtfZ389KBAyjGinCpGjY 3Vycmlu ZtSPcZZqCLSiDE22MX63SC1 4I0PlKjyluEFdjDN+PHRhYm xlIHdpZHRoPScxMDAlJyBzd UqrVA5u Tv7wUVRtNBRfdVdrkQTpOlC xo0wwWIReIQirGD9pxBkmX8 UofTR3CQSko7x3Qb76G73qC 3JvdXA+ HBOfxTH8zHL7aF2xTmZxLpU 0BIcuG243UqXpaCAwWsjye0 bcn0vdlJg4QcIvSKJdqiYot WduPSJ0 y9VyKt25G69qLYrgAMVyXIU vMMTyHOXgwGcqwn1mbI1mIu 8+UBLuyDV9hHI1zF7rDxUzL qM7YYak V477WcFvtKIfIvagR03pE4P vdXA+TWKfVev2JFJdnOseGF 3kgZHgQOmmOi2oNZF6XxIjD jIwMGlu Q2PxTCRpcgxvmesnwAK6CZZ kQMMhwI04Cd0vaInvVy4eON BiEBM8WMKtrSRbL6HknV5tZ iAjMDAw RGGvE2NyeSNfBXixW981GBa jDnR2URRebcYpV9AsMQErtE vfTrT8s9Q7Kn6MzRajlYQyZ Q3sGaMf LZp4E5RkPym6ASClfGpePI9 swYLzALbxLo1eqRgocMuqFB 8gVEGpaukzb925AsMxa8ndE DEwcHQg LGrsYMY4R62lb9I8DFRgORS qKAC0lXW7cT6czUovpzfooY VmdDsgdmVydGljYWwtYWxpZ 246IHRv fZemIhQOLbj4C3QwAda4OED jjRitXY4mdOFwOFuzDk6wsF gjtMloKU0dPYWzddumm409T vQgt4mz QFLidOEzCEcyJKC5E02gr6P 0ABOuKTNrUPO9yYE7jT1mlG lnbjogbGVmdDsgdmVydGljY WwtYWxp C599UTGegVxqZt9TSze0A1B aQxd4ARRkvJhzLA0bkZJxIY rmMk3quCrucTeiLC9fOZJgy tsos107 RvZjs3ouWBIlrUDjKAvzXDR 1A51yn8D5LVHdPJZmPQQ5zV M0cG5etHcqkjicnNRqgRldi mVydGlj SGgeBPykA642AZMcaConApP heWVyOjwvdGQ+FL19qu06U0 ZhMlsyNir7UZAeXIS2qOD3j R3fANIh [facility] (more content not included)... [facility] Human papilloma virus 16+18+ 31+33+35+39+45+51+52+56+58+59+66+68 DNA [Presence] in [facility] 02-20-2024 HPV 16+18+31+33+35+39+45+5 1+52+56+58+59+66+68 DNA Probe+sig amp Ql (Cvx) Human papilloma virus 16+18+31+33+35+39+45+51 +52+56+58+59+66+68 DNA [Presence] in [facility] . [facility] Comment on above: TESTS RESULT FLAG UN ITS REF RANGE LAB DIAGNOSIS: 02 NEGATIVE FOR INTRAEPITHELIAL LESION OR MALIGNANCY.Specimen adequacy: 02 Satisfactory for evaluation. Endocervical and/or squamous metaplastic cells (endocervical component) are present.Performed by: 02 Edel Sewell, Manager Regulatory ([facility]). 02Note: Note 02 The Pap smear [...] <-Panic Low,>-Panic High,A-Abnormal,AA-Critical Abnormal -----Performed at:[address] [facility] [address] [place] [address] Dagmar Love MD, Wmzctdszc at: =G - [facility] [address] [id number] Director: Dagmar Love MD, Phone: [phone] at: [facility] [address] [id number] Director: Dagmar Love MD, Phone: [phone] No Panel Informationon 02-19 Reference Lab Test Patient Age Note . [facility] Comment on above: TESTS RESULT FLAG UN ITS REF RANGE LAB Clinician Provided Cytology Information Source.............Cervix;Endocervix No. of containers..01 ThinPrep VialAge Algo ACOG Amaya... FLAG LEGEND: L-Low Normal,H-High Normal,LL-Alert Low,HH-Alert High <-Panic Low,>-Panic High,A-Abnormal,AA-Critical Abnormal -----Performed at:01 =G [address] [address] Dagmar Love MD, .Auto Diff 1on 02-06-2024 Auto Fannin % 6 % Normal 1-12 [facility] Comment on above: Performed By: #### 7 [id number] #### [facility] (DEFAULT) [address] [place] [address] Baso Abs# 0.0 x10 Normal 0.0-0.2 [facility] Comment on above: Performed By: #### 7 [id number] #### [facility] (DEFAULT) [address] [place] [address] Basophils/100 WBC (Bld) 0.3 % Normal 0.2-2.0 [facility] Comment on above: Performed By: #### 7 [id number] #### [facility] (DEFAULT) [address] [place] [address] Eos Abs# 0.2 x10 Normal 0.0-0.4 [facility] Comment on above: Performed By: #### 7 [id number] #### [facility] (DEFAULT) [address] [place] [address] Eosinophils/100 WBC (Bld) 3.4 % Normal 0.9-4.0 [facility] Comment on above: Performed By: #### 7 [id number] #### [facility] (DEFAULT) [address] [place] [address] Lymph Abs# 2.4 x10 Normal 1.3-2.9 [facility] Comment on above: Performed By: #### 7 [id number] #### [facility] (DEFAULT) [address] [place] [address] Lymphocytes/100 WBC (Bld) 34 % Normal 14-48 [facility] Comment on above: Performed By: #### 7 [id number] #### [facility] (DEFAULT) [address] [place] [address] Fannin Abs# 0.4 x10 Normal 0.0-0.8 [facility] Comment on above: Performed By: #### 7 [id number] #### [facility] (DEFAULT) [address] [place] [address] Neut Abs# 4.0 x10 Normal 1.5-9.2 [facility] Comment on above: Performed By: #### 7 [id number] #### [facility] (DEFAULT) [address] [place] [address] Neutrophils/100 WBC (Bld) 56 % Normal 44-88 [facility] Comment on above: Performed By: #### 7 [id number] #### [facility] (DEFAULT) [address] [place] [address] CBC w/ Auto Diffon 4 Erythrocyte distribution width (RBC) [Ratio] 14.0 % Normal 11.5-15.0 [facility] Comment on above: Performed By: #### 7 [id number] #### [facility] (DEFAULT) [address] [place] [address] Hematocrit (Bld) [Volume fraction] 41.7 % High 33.7-40.4 [facility] Comment on above: Performed By: #### 7 [id number] #### [facility] (DEFAULT) [address] [place] [address] Hemoglobin (Bld) [Mass/Vol] 14.1 g/dL Normal 11.3-15.9 [facility] Comment on above: Performed By: #### 7 [id number] #### [facility] (DEFAULT) [address] [place] [address] 327[address] Man Diff? Auto Invalid Interpretation Code [facility] Comment on above: Performed By: #### 7 [id number] #### [facility] (DEFAULT) [address] [place] [address] MCH (RBC) [Entitic mass] 29 pg Normal 24-34 [facility] Comment on above: Performed By: #### 7 [id number] #### [facility] (DEFAULT) [address] [place] [address] MCHC (RBC) [Mass/Vol] 34 g/dL Normal 26-37 [facility] Comment on above: Performed By: #### 7 [id number] #### [facility] (DEFAULT) [address] [place] [address] MCV (RBC) [Entitic vol] 86 fL Normal 81-100 [facility] Comment on above: Performed By: #### 7 [id number] #### [facility] (DEFAULT) [address] [place] [address] Platelet 196 x10 Normal 138-427 [facility] Comment on above: Performed By: #### 7 [id number] #### [facility] (DEFAULT) [address] [place] [address]26[address] Platelet mean volume (Bld) [Entitic vol] 6.8 fL Normal 6.3-10.2 [facility] Comment on above: Performed By: #### 7 [id number] #### [facility] (DEFAULT) [address] [place] [address] 58911 RBC 4.84 x10 Normal 3.70-5.30 [facility] Comment on above: Performed By: #### 7 [id number] #### [facility] (DEFAULT) [address] [place] [address] WBC 7.1 x10 Normal 3.5-10.5 [facility] Comment on above: Performed By: #### 7 [id number] #### [facility] (DEFAULT) [address] [place] [address] Ferritinon 02-06-2024 Ferritin [Mass/Vol] 15.8 ng/mL Normal 12.0-150.0 [facility] Comment on above: Performed By: #### 1 [id number], [id number], [id number] #### [facility] (DEFAULT) [address] [place] [address] Iron Profileon 02-06-2024 Iron [Mass/Vol] 72.0 ug/dL Normal 28.0-170.0 [facility] Comment on above: Performed By: #### 1 [id number], [id number], [id number] #### [facility] (DEFAULT) [address] [place] [address] Iron Sat 19 % Low 20-55 [facility] Comment on above: Performed By: #### 1 [id number], [id number], [id number] #### [facility] (DEFAULT) [address] [place] [address] TIBC 384 mcg/dL Normal 250-400 [facility] Comment on above: Performed By: #### 1 [id number], [id number], [id number] #### [facility] (DEFAULT) [address] [place] [address] Transferrin [Mass/Vol] 274.6 mg/dL Normal 192.0-382.0 [facility] Comment on above: Performed By: #### 1 [id number], [id number], [id number] #### [facility] (DEFAULT) [address] [place] [address] Coding Summaryon 12-11-2023 Coding Summary HTMLBase 64 AclvfrkqFVt6aHb+PGhlYWQ +PI4BCALjK18bhRHtfY5dQ9 NMTElOSywgQVBQTElOSyIgb cLeZG8soHSgQKLe IC8+WB4eLPKjNfffeFAtt4A 5fDT9V03zco8jEDlcoBM4KF QvFoUdistmf5rtwNo5XFtbL mluOyBt QDMtoQ63AYK1kQ17En65wYC lzPHpo8nwyOy7QaMaGSHpKB I4zPqjIKfik7AbFJNkC83yk UFzv4G9 AZLhgNfahZUeAyXugMS0aL9 yKDwcmofgp1wnfvoyMpg3tb 20hWBqn1W5pKP5G2ZdesB7D GJvbGQg OwsswYABlK3ztmjec3ebpbv lJuDwRZUiGDc1JIt2STLlvM mrPlUzNF68LPA8YCLdhvZhU 2FsLWFs wMryEmL5a5D7Cs5JO8TRHic rQ0QFPRDXUNyknFA+PC90cj 59I8DyHlgnVcq6WTDhOOI5b YI1wQ3k BVTuIFich4R1qTC5E1PltfH ukn7jx5qbVCNnYRuvY47wnW Kfq7I7VJGakMS6IVAayWdaC iBzaG93 Oyc+XPDqaNqik6CzRpakf2k pd2myuAh9DomyUNBubiJdcX giKUZ2f7SwOu5vRHDgyNV9n LS9bI4u NrBaAaI7HWxlO857PbOgfTI tIgmdB16aS8MddAM+PHRyPj w0HRXzaEcaBB1sV8BxZJByh mctbGVm bIhvNF6wSUUmaazwZAUecX1 gIHTvV6a6RcMjEyO0COtwO8 QsVNSwwouxWw89gO7tGsWhK nS9WCvp N8DmzzC2LQTjxLYwSHjlBDT 3E54qr7F4UPMdLPTbUUP1eF H4gM0vtAsngvsodDVogPzqs mVydGlj PUjgLOqaL543JNSobDedArV vZGluZyBEYXRlOiAgMDgvMj UvMjAyNDwvdGQ+YFPhNEW8v WxlPSAn tOHtYVnjWe0fgRapbLxjCS6 wIFParryfKOKtcJ6gXSHmuF LdlCleBY8eKLYfhiwlr695Z iAxMHB0 LUDryZHrD8GvqF9vPlKlYAO mRUJsI0RmsLHuPJymU900UW wtXqB3IHZzleIgG4MiRSXxg WduOiB0 h4R1Gs2Xw3SzabhkL9RbfNN hMgDdMxviJMj7E9IxAebfzF I+XR95MAQgXB12BWv0ZCT4i WxlPSdi SNUaG9KzrJ4nWnGlZZRpJUI kOyc+PHRhYmxlIHdpZHRoPS puZNEdMlJfvSymJH6bSw7pQ GVyLWNv vIqxnXOuMkRua5bwONQpTWc eRB2hyNgpL1VlmXE7DCRtz1 i1Dj09N63pM3WqnUQ+PGNvb IZ2uTT8 yJ9uLzBoYpH0QZgrO106EqH qeYIiLnjxn4pse0mgvUf8Ov Y0ZIXhcwHsaTzgVLS2c0DyK g62C47b IHdpZHRoPSIxNSUiIHZhbGl unw0mtP9yVc0+PCKfjOK1hA O2bO4aRdLtLeN0GVivR967U nRvcCIv Bigor9jtv7vcrZe2RkReZDR rdjJjoYmeKEI1y1PpLc01J7 LewZjoq4AwZrj9rq91sEJbk 3D2yJA3 V2JxEMPecncsxSHfxAupHS1 bMSDcljpkZPNqmX5zWFLcY4 x0YlHkXkU5LSrlN2ChijP0A GJvbGQg WZTutKDSsN3ebxkfc6nghig eGwXrUSAfDXq5AZl8TBIjdS agXwGqJKJ5RkO3SFB8lKGnt Z9goXje aiafaX6rMau+ENT8hPNdrPD VYG7jCozckFJ+KXKyUCI0iG hvCJysBHQyoD5fLATuD1h1S iAwLjA1 NSroZ9AociV6CXOjuYZaJAG vvYGGmO4squavp1jxoasyJq SqJFXhVSh2FSi6IWTbzGncQ iBsZWZ0 CpN4WDY4kZCjxX7vxGumpea kwC0sAgi+AqftwGruLCP7VT n4Z1CaJzt3MSGjkIeqRX0ge GFkZGlu Jr0kqPqwqDogWG7cUBIoyve gk771GzObz0adPUNuiQUxNZ mbAFF6G50vu0P5VDHjPUNoL IQ4yAM1 nL2aeJdhjpntwMHhwJgtpxA ntIboRMotTPeqQ491QRBeqT hwHfGdSRm4K9IiAjo0AQIjs DfcDE3p yWAyTVntVg5oiOgypHuoMC9 eXNSotteko476WoDyz8riEK IkjLEiAXqbGYW5F92iq9I1O CMwMDAw MAL7jSM5dS5nuOnrijzxiKU mdDsgdmVydGljYWwtYWxpZ2 27RXTbdBfqVpBgsMu2G2IvQ sp4IBEv cFjxFK3biIZpJGlmZk6xuQj lxRpoFB0jQUWpjyxib864Wf Nyl5gsZNMrjZQuPUtqIXG6A 44da1R8 JINbMWKoKEU9zZC1oM8kjSj nbjogbGVmdDsgdmVydGljYW lyDIbiU752PGVmmOtuUrFlj GllbnQg MEmbSSy6R4QjXcnjvUG+PC9 6OWIvXP07qRLgbWAzg3sjcD x4LiTtKJTmJVG8sAjgDGbso 3JkZXIt B44tnLHfi5R6KKYcpYpxfIY kEmMfcKQ4jB3rTFxjummgp2 cjdvnqJhqyg1kayd55oR41Z 29sIHdp ZHRoPSIzMCUiIHZhbGlnbj0 bhI5dBo9+KKQuhKZ0mOV5tS 3xXVWuWnS2OPwgL898ElBbx CIvPjxj m4ggj0iudIq4BvJ8YLSimdS zoLtsUCK5p0QsOb32G99gJO dpZHRoPSIyMCUiIHZhbGlnb l6qoX0t Ii8+ZQUhxZZ3gOP1oR7dQyV pZzN3SEcoU274OgRuwUMuGq adP04eV3SanRY+XTShRjp5D CBzdHls NZ2tiLStJJvmNw4nPXR5FmN vVxBmTYmuK1YqSRFocacykl lwvCJ4IRJgSLMneL35Dc0np DogMTBw xSFZsT7niizox4gsmyqjKkF tBUDaCLg5SLb8EDAgjFxhHa TwCVY7WzT0GOJ9qSZmnD0nf Glnbjog oQ2yC7WkCKZmmnusPh67rB1 sCxQzNnB7CLlkTyx+TUNDQU 5OLCBIRUFUSEVSIEVMSVpBQ kVUSDwv dGQ+RIKdIXK3qYloCOxyWHC acC4qQJTaI8f3OjKoXgB6YF hqJ9KsDTLjsoabWm48wV0jO iAwLjA1 ZCuuB0LbuwW5BGIqeUNiIPa gLCZ3K31vl1M4WGJaNEXrZL K8qGS7lU8ixBlppxmemODfz DsgdmVy gFurFZciKTiqC275KXEicWw hJhNzQbQ3KvP0VSG2W2WzXs v7WSNnpCqgIP5qwPZtQDdfR r5blFni uZrnLA5oMNOfwsjqRSLwwX1 tJPUjuNLahXsrKL9ePGOfor ygv692JvQbLOE5JMWlxYIkI 1JmkL0w KdRnRPOcUKMwN2YteWZvKBt iD478KKsvHvN0KDUskzOuS7 PfQWCtiFucMoQ2u5D9Je1gJ CBZZWFy czwvdGQ+QSNlAQI1mZokTAz bZSHbtY4jPDObO6d9GpAfXy D1KTgbJ4IuLNYfilszZt85g A0vFbAo QwN8LVhjN6HqlaL5KFVosTK kGReqPUC8B49vm6M1PXVwQY FxASW9lWU0gE8nlDixeffhy GVmdDsg mmXkcQaqWXfpVKmuL169TCS vcDsnPkZFTUFMRTwvdGQ+PH OhXEU7rMowHRzfUYZomV5tW QZnQ8m0 WjAhZdP7TEylE9NmRBMeieo dNj31aS8eTxQkEeE2JXjjN0 RjdwI1GZRroXPlDMnvHAS5C 72fx0D0 WHTnTURaMVW2jUO7nZ8psZq nbjogbGVmdDsgdmVydGljYW tsQKbtV775UUOxqXdfXuZmG 3Vycmlu RcOClAYuJPCgTF99IH55XH1 9L2UkTcksaZFsjPH+PHRhYm xlIHdpZHRoPScxMDAlJyBzd JoeJD0k Gk9lRVLzHJCyaDrpfPNzVhF jd8hdUVXtVKudVH8xrXsrZ4 JliUJ3RALld5f9Mp68T80nI 3JvdXA+ UVBmbEZ5yUT2oG9tQoUtOlA 3TDxpT630FcTrkEDvCsnjh9 net9prrAj9ErSwMMMfvdAcf WduPSJ0 f7KwMe38E68dADheVEUpQUS eIWYdPFPgsNcfns5uyC2yOh 8+EZBswPG0aAA8hF5bCsZuM vA0ZWxf U449KdXqkOPnXomzO55mU5Q vdXA+JXMeNmd5RZYmrXxvUU 8pvKKkSVkaHb8kYZB3CfZtP jIwMGlu A6MmSRQjnescoloomXG7TUA xRQFzzW23Xd0btSdqUf4dAV SgONY1YDGfmPZjO7MfcA7kT iAjMDAw SGEdR4SasOJfOZxzW650UTm yWyN7KJGhlkKnC4SsVWEwoP lqTsP2x7T4Rq7QeGbzqCIbF F6rHgXs JZh0L0MhYdt3YDCfiDjjFK3 bmBHpNRolVb9hkKoyoBtsCQ 7rRYVidjsod461SdLar3jsW DEwcHQg HIfuHTU3R19ih6O2OOAoFJM lCEV1jUU2hX5emJhkpldwfE VmdDsgdmVydGljYWwtYWxpZ 246IHRv pKjsLsZSCwr0P3FiFwk2RKJ uwDqbPV4rqRLzRYsaZg9huQ tabItkHE6eBFBorgggs126A lKdb4sw AKRcmKLyKKfuGWX6S89km2K 8WYZeVGSkAFJ3aQA4cY9tlK lnbjogbGVmdDsgdmVydGljY WwtYWxp F178SBZhpOcxZs8ARtw8W6U sWzb0VHOshKpqVC7uaPMcSX cnHv4dvFxfrFchCC7dFSGhj jpdu950 PdRmo8yzRYLtmNQwJQllZQH 9W21cj0H6VFWpSTMwTEG5yQ X7mC7eiTvzhyeuvVNvcJbdr mVydGlj YCqpNNdnM842WTMxvSrvVaT heWVyOjwvdGQ+TX12hs99B1 PaUqdwWfj4GVHyTXQ6bWW1z N0nTXHc [facility] [place] content not included)... Normal [facility] Amphetamine Screen Ql (U)Ord ered By: Andry Lacy on 12-07-2023 Amphetamines Ql (U) Amphetamines screen Negativ e [facility] Amphetamines Ql (U) Negative Negative [facility] Barbiturates [Presence] in U rine by Screen methodOrdered By: Andry Lacy on 12-07-2023 Barbiturates Screen Ql (U) Negative Negative [facility] Barbiturates Screen Ql (U) Barbiturates [Presence] in Urine by Screen method Negative [facility] Benzodiazepines Screen Ql (U )Ordered By: Andry Lacy on 12-07-2023 Benzodiazepines Ql (U) Positive High Negative [facility] Benzodiazepines Ql (U) Benzodiazepines [Presence] in Urine by Screen method High Negative [facility] Benzoylecgonine [Presence] i n Urine by Screen methodOrdered By: Andry Lacy on 12-07-2023 Benzoylecgonine Screen Ql (U) Negative Negative [facility] Benzoylecgonine Screen Ql (U) Benzoylecgonine [Presence] in Urine by Screen method Negative [facility] Cannabinoids [Presence] in U rine by Screen methodOrdered By: Andry Lacy on 12-07-2023 Cannabinoids Screen Ql (U) Positive High Negative [facility] Comment on above: These are unconfirme d results and should not be used for legal purposes. Drug Cut-Off Concentration: AMPH 1000 ng/mL LUIS ANTONIO 200 ng/mL JOHN 200 ng/mL COCM 300 ng/mL OP 300 ng/mL PCP 25 ng/mL THC 20 ng/mL Cannabinoids Screen Ql (U) Cannabinoids [Presence] in Urine by Screen method High Negative [facility] Comment on above: These are unconfirme d results and should not be used for legal purposes. Drug Cut-Off Concentration: AMPH 1000 ng/mL LUIS ANTONIO 200 ng/mL JOHN 200 ng/mL COCM 300 ng/mL OP 300 ng/mL PCP 25 ng/mL THC 20 ng/mL Drug Screen,Urineon 12-07-19 24 Amphetamine Screen,Urine Negative Normal Negative [facility] Comment on above: Performed By: #### U RDS #### [address] Barbiturate Screen,Urine Negative Normal Negative [facility] Comment on above: Performed By: #### U RDS #### [place] [address] [place] Benzodiazepines Screen,Urine Positive High Negative [facility] Comment on above: Performed By: #### U RDS #### [address] Cannabinoid Screen,Urine Positive High Negative [facility] Comment on above: Result Comment: Thes e are unconfirmed results and should not be used for legal purposes. Drug Cut-Off Concentration: AMPH 1000 ng/mL LUIS ANTONIO 200 ng/mL JOHN 200 ng/mL COCM 300 ng/mL OP 300 ng/mL PCP 25 ng/mL THC 20 ng/mL PERFORMED BY: [place] [address] PATHOLOGIST [employer] MANAGER DANICA KUO M.D. Performed By: #### U RDS #### [address] Cocaine Screen,Urine Negative Normal Negative [facility] Comment on above: Performed By: #### U RDS #### [address] Opiate Screen,Urine Negative Normal Negative [facility] Comment on above: Performed By: #### U RDS #### [place] [address] [place] Phencyclidine Screen,Urine Negative Normal Negative [facility] Comment on above: Performed By: #### U RDS #### [address] HCG ( test) IA.rapi d Ql (U)Ordered By: Andry Lacy on 12-07-2023 HCG ( test) Ql (U) Negative [facility] HCG ( test) Ql (U) Urine human chorionic gonadotropin (hCG) detection by immunoassay [facility] HCG,Urineon 12-07-2023 Beta HCG ( test) Ql (U) Negative Normal [facility] Comment on above: Result Comment: PERF ORMED BY: [place] [address] PATHOLOGIST FITNESS MANAGER DANICA KUO M.D. Performed By: #### U HCG #### [facility] [address] Opiates [Presence] in Urine by Screen methodOrdered By: Andry Lacy on 12-07-2023 Opiates Screen Ql (U) Negative Negative [facility] Opiates Screen Ql (U) Opiates [Presence] in Urine by Screen method Negative [facility] Phencyclidine Screen Ql (U)O rdered By: Andry Lacy on 12-07-2023 Phencyclidine Ql (U) Negative Negative [facility] Phencyclidine Ql (U) Phencyclidine [Presence] in Urine by Screen method Negative [facility] Alanine aminotransferase [En zymatic activity/volume] in Serum or PlasmaOrdered By: Romeo Santana on 11-28-2023 ALT [Catalytic activity/Vol] 14 U/L Normal 7-52 [facility] Comment on above: Performed By: #### C MP wRFX A1C, CBC #### [facility] [address] [place] [address] [place] Albumin [Mass/volume] in Ser um or Plasma by Bromocresol green (BCG) dye binding methoOrdered By: Romeo Santana on 11-28-2023 Albumin BCG dye [Mass/Vol] 4.6 g/dL 3.5-5.7 [facility] Alkaline phosphatase [Enzyma tic activity/volume] in Serum or PlasmaOrdered By: Romeo Santana on 11-28-2023 ALP [Catalytic activity/Vol] 41 U/L Normal 34-104 [facility] Comment on above: Result Comment: PERF ORMED BY: [facility] [address] [place] [address] PATHOLOGIST [employer] MANAGER DANICA KUO M.D. Performed By: #### C MP wRFX A1C, CBC #### [facility] [address] Aspartate aminotransferase [ Enzymatic activity/volume] in Serum or PlasmaOrdered By: Romeo Santana on 11-28-2023 AST [Catalytic activity/Vol] 13 U/L Normal 13-39 [facility] Comment on above: Performed By: #### C MP wRFX A1C, CBC #### [facility] [address] [place] [address] Automated basophil %Ordered By: Romeo Santana on 11-28-2023 Basophils/100 WBC (Bld) 0.3 % Normal . [facility] Comment on above: Performed By: #### C MP wRFX A1C, CBC #### [address] Automated basophil countOrde red By: Romeo Santana on 11-28-2023 Basophils (Bld) [#/Vol] 0.0 10*3/uL Normal 0.0-0.2 [facility] Comment on above: Result Comment: PERF ORMED BY: [place] [address] PATHOLOGIST FITNESS MANAGER DANICA KUO M.D. Performed By: #### C MP wRFX A1C, CBC #### [address] Automated blood monocyte cou ntOrdered By: Romeo Santana on 11-28-2023 Monocytes (Bld) [#/Vol] 0.4 10*3/uL Normal 0.0-0.8 [facility] Comment on above: Performed By: #### C MP wRFX A1C, CBC #### [address] Automated eosinophil %Ordere d By: Romeo Santana on 11-28-2023 Eosinophils/100 WBC (Bld) 3.5 % Normal . [facility] Comment on above: Performed By: #### C MP wRFX A1C, CBC #### [address] Automated eosinophil countOr dered By: Romeo Santana on 11-28-2023 Eosinophils (Bld) [#/Vol] 0.2 10*3/uL Normal 0.0-0.45 [facility] Comment on above: Performed By: #### C MP wRFX A1C, CBC #### [facility] [address] Automated monocyte %Ordered By: Romeo Santana on 11-28-2023 Monocytes/100 WBC (Bld) 5.8 % Normal . [facility] Comment on above: Performed By: #### C MP wRFX A1C, CBC #### [facility] [address] Automated neutrophil %Ordere d By: Romeo Santana on 11-28-2023 Neutrophils/100 WBC (Bld) 52.1 % Normal . [facility] Comment on above: Performed By: #### C MP wRFX A1C, CBC #### [address] Bilirubin.total [Mass/volume ] in Serum or PlasmaOrdered By: Romeo Santana on 11-28-2023 Bilirubin [Mass/Vol] 0.5 mg/dL Normal 0.3-1.0 [facility] Comment on above: Performed By: #### C MP wRFX A1C, CBC #### [facility] [address] CMP with reflex to A1Con Albumin [Mass/Vol] 4.6 g/dL Normal 3.5-5.7 [facility] Comment on above: Performed By: #### C MP wRFX A1C, CBC #### [facility] [address] [place] [address] [place] GFR/1.73 sq M.predicted MDRD (S/P/Bld) [Vol rate/Area] mL/min/{1.73_m2} Normal [facility] Comment on above: Performed By: #### C MP wRFX A1C, CBC #### [place] [address] [place] Calcium [Mass/volume] in Ser um or PlasmaOrdered By: Romeo Santana on 11-28-2023 Calcium [Mass/Vol] 9.4 mg/dL Normal 8.6-10.3 [facility] Comment on above: Performed By: #### C MP wRFX A1C, CBC #### [facility] [address] Carbon dioxide, total [Moles /volume] in Serum or PlasmaOrdered By: Romeo Santana on 11-28-2023 CO2 [Moles/Vol] 27.8 mmol/L Normal 21.0-31.0 [facility] Comment on above: Performed By: #### C MP wRFX A1C, CBC #### [address] Chloride [Moles/volume] in S betty or PlasmaOrdered By: Romeo Santana on 11-28-2023 Chloride [Moles/Vol] 106 mmol/L Normal 98-107 [facility] Comment on above: Performed By: #### C MP wRFX A1C, CBC #### [address] Complete Blood Count Auto Di ffon 11-28-2023 Mean Corpuscular HGB Conc 33.8 g/dL Normal 32.0-35.0 [facility] Comment on above: Performed By: #### C MP wRFX A1C, CBC #### [address] NRBC% 0.0 /100{WBC} Normal 0-0.5 [facility] Comment on above: Performed By: #### C MP wRFX A1C, CBC #### [address] Creatinine [Mass/volume] in Serum or PlasmaOrdered By: Romeo Santana on 11-28-2023 Creatinine [Mass/Vol] 0.62 mg/dL Normal 0.60-1.20 [facility] Comment on above: Performed By: #### C MP wRFX A1C, CBC #### [place] [address] [place] ECG 12 lead ECGon 11-28-2023 ECG 12 lead ECG [facility] [employer] [address] [place] [address] Electrocardiograph Report Signed Patient: Jaz Sanders MR#: [id number] : 1995 Acct:[id number] Age/Sex: 28 / F ADM Date: 11/28/23 Loc: Room: Type: [facility] Attending Dr: Romeo Santana DO Ordering Provider: [...] change was found Confirmed by Roverto Duran ([id number]) on 11/28/2023 5:20:45 PM Referred By: Electronically Signed By: Roevrto Duran Transcribed By: MUS Signed By Roverto Duran MD 11/28/23 1720 Normal [facility] Erythrocyte distribution wid th [Ratio] by Automated countOrdered By: Romeo Santana on 11-28-2023 Erythrocyte distribution width (RBC) [Ratio] 14.0 % Normal 11.9-15.3 [facility] Comment on above: Performed By: #### C MP wRFX A1C, CBC #### [facility] [address] [place] [address] [place] Erythrocytes [#/volume] in B lood by Automated countOrdered By: Romeo Santana on 11-28-2023 RBC (Bld) [#/Vol] 4.63 10*6/uL Normal 3.60-5.00 [facility] Comment on above: Performed By: #### C MP wRFX A1C, CBC #### [facility] [address] [place] [address] [place] Glucose [Mass/volume] in Ser um or PlasmaOrdered By: Romeo Santana on 11-28-2023 Glucose [Mass/Vol] 76 mg/dL Normal 70-100 [facility] Comment on above: Performed By: #### C MP wRFX A1C, CBC #### [facility] [address] Hematocrit [Volume Fraction] of Blood by Automated countOrdered By: Romeo Santana on 11-28-2023 Hematocrit (Bld) [Volume fraction] 40.1 % Normal 34.0-46.4 [facility] Comment on above: Performed By: #### C MP wRFX A1C, CBC #### [facility] [address] Hemoglobin [Mass/volume] in BloodOrdered By: Romeo Santana on 11-28-2023 Hemoglobin (Bld) [Mass/Vol] 13.6 g/dL Normal 11.8-15.4 [facility] Comment on above: Performed By: #### C MP wRFX A1C, CBC #### [facility] [address] Leukocytes [#/volume] correc terry for nucleated erythrocytes in Blood by Automated counOrdered By: Romeo Santana on 11-28-2023 WBC corrected for nucl RBC Auto (Bld) [#/Vol] 6.4 10*3/uL 3.8-11.6 [facility] Leukocytes [#/volume] in Blo od by Automated countOrdered By: Romeo Santana on 11-28-2023 WBC (Bld) [#/Vol] 6.4 10*3/uL Normal 3.8-11.6 [facility] Comment on above: Performed By: #### C MP wRFX A1C, CBC #### [facility] [address] [place] [address] [place] Lymphocytes [#/volume] in Bl ood by Automated countOrdered By: Romeo Santana on 11-28-2023 Lymphocytes (Bld) [#/Vol] 2.4 10*3/uL Normal 1.00-4.8 [facility] Comment on above: Performed By: #### C MP wRFX A1C, CBC #### [facility] [address] [place] [address] Lymphocytes/100 leukocytes i n Blood by Automated countOrdered By: Romeo Santana on 11-28-2023 Lymphocytes/100 WBC (Bld) 38.3 % Normal . [facility] Comment on above: Performed By: #### C MP wRFX A1C, CBC #### [address] MCH [Entitic mass] by Automa terry countOrdered By: Romeo Santana on 11-28-2023 MCH (RBC) [Entitic mass] 29.3 pg Normal 24.7-34.3 [facility] Comment on above: Performed By: #### C MP wRFX A1C, CBC #### [address] MCHC Auto (RBC) [Mass/Vol]Or dered By: Romeo Santana on 11-28-2023 MCHC (RBC) [Mass/Vol] 33.8 g/dL 32.0-35.0 [facility] MCV [Entitic volume] by Auto mated countOrdered By: Romeo Santana on 11-28-2023 MCV (RBC) [Entitic vol] 86.7 fL Normal 80-100 [facility] Comment on above: Performed By: #### C MP wRFX A1C, CBC #### [address] Neutrophils [#/volume] in Bl ood by Automated countOrdered By: Romeo Santana on 11-28-2023 Neutrophils (Bld) [#/Vol] 3.3 10*3/uL Normal 1.8-7.7 [facility] Comment on above: Performed By: #### C MP wRFX A1C, CBC #### [address] No Panel InformationOrdered By: Romeo Santana on 11-28-2023 Estimated GFR (CKD-EPI) > 60.0 mL/Min [facility] Creatinine Clearance (Chem N/A [facility] Nucleated erythrocytes [Pres ence] in Blood by Automated countOrdered By: Romeo Santana on 11-28-2023 Nucleated RBC Auto Ql (Bld) 0.0 /100{WBC} 0-0.5 [facility] Platelet mean volume [Entiti c volume] in Blood by Automated countOrdered By: Romeo Santana on 11-28-2023 Platelet mean volume (Bld) [Entitic vol] 6.8 fL Normal 6.3-10.7 [facility] Comment on above: Performed By: #### C MP wRFX A1C, CBC #### [facility] [address] Platelets [#/volume] in Bloo d by Automated countOrdered By: Romeo Santana on 11-28-2023 Platelets (Bld) [#/Vol] 159 10*3/uL Normal 150-450 [facility] Comment on above: Performed By: #### C MP wRFX A1C, CBC #### [address] Potassium [Moles/volume] in Serum or PlasmaOrdered By: Romeo Santana on 11-28-2023 Potassium [Moles/Vol] 4.2 mmol/L Normal 3.5-5.1 [facility] Comment on above: Performed By: #### C MP wRFX A1C, CBC #### [address] Protein [Mass/volume] in Ser um or PlasmaOrdered By: Romeo Santana on 11-28-2023 Protein [Mass/Vol] 6.6 g/dL Normal 6.4-8.9 [facility] Comment on above: Performed By: #### C MP wRFX A1C, CBC #### [facility] [address] [place] [address] Serum globulin measurement b y calculation (mass/volume)Ordered By: Romeo Santana on 11-28-2023 Globulin (S) [Mass/Vol] 2.0 g/dL Normal [facility] Comment on above: Performed By: #### C MP wRFX A1C, CBC #### [address] Serum or plasma albumin/glob ulin mass ratioOrdered By: Romeo Santana on 11-28-2023 Albumin/Globulin [Mass ratio] 2.3 {ratio} Normal [facility] Comment on above: Performed By: #### C MP wRFX A1C, CBC #### [facility] [address] Serum or plasma anion gap de terminationOrdered By: Romeo Satnana on 11-28-2023 Anion gap [Moles/Vol] 10.4 mmol/L Normal 6.0-15.0 [facility] Comment on above: Performed By: #### C MP wRFX A1C, CBC #### [facility] [address] Sodium [Moles/volume] in Ser um or PlasmaOrdered By: Romeo Santana on 11-28-2023 Sodium [Moles/Vol] 140 mmol/L Normal 136-145 [facility] Comment on above: Performed By: #### C MP wRFX A1C, CBC #### [facility] [address] Urea nitrogen [Mass/volume] in Serum or PlasmaOrdered By: Romeo Santana on 11-28-2023 Urea nitrogen [Mass/Vol] 7 mg/dL Normal 7-25 [facility] Comment on above: Performed By: #### C MP wRFX A1C, CBC #### [facility] [address] Coding Summaryon 11-14-2023 Coding Summary HTMLBase 64 GqqpcxpxCTz8wJl+PGhlYWQ +SI8LDSJmX24rgOHkmA2sU5 NMTElOSywgQVBQTElOSyIgb gKzLP3xfHLaUTOs IC8+GE0nWJEqIqktiQYdr9B 2xBX6Q89pwy4eTWyzlLW4UI VgVgXesicmk0axpVl2WTncF mluOyBt DKHyeB77ZLI7yR75Px63qER grYLux6obuFg3YqOmFWMhTA E8jSknGUckr6YqDBFcK98ag JEmp9X7 MGPjgOgjaAUmPuJltKA7yZ7 cKKfqpssjb6kaxfkjVzq2my 85rKNwx6H6yPJ7Z8HnlaP9Q GJvbGQg TggsvLOSlN8oudiqc6lrhhj iOlBwBZPhRZc6RHx9DCImfN euDhSgVD09DWB2SQZmtlQsL 2FsLWFs wGluOwL9q5J6Uk4FS1TONmk aL8PJJRORPSqkrWZ+PC90cj 64O1SyZdjiKfs3XGXsMBL0z DN0tZ5i WZDzTVyub5A7wCY6A0MmquB kbb4cr6raZZBkFJybP68mfN Mpa1X6CKJlaFN1MCKgiZkkW iBzaG93 Oyc+OQWrmQasp4LdWbgia3y wr0zegQo5LtfgHZHiyaKleB onJWM4o1KgBd9zJGHntUC1w XF9sN1v SpXtWoV9AJgtA347WbDsdRG eNsfgE66iK1RgdRY+PHRyPj i5EHGjvJejEL1tL5FuTKTbk mctbGVm zKjbXI9qUJXfpvtoXGVsdY7 yHZUyC2a7UfKjDxS0ATuaX4 DdIILdtwbjZy70aU8zQiVmR qZ1UUms U2VztmS1LHObiAKoWIlyVHS 0Y09hi6B6CEZtTGVtBHY9yC Q2qA3dtZfnrmnpgDRvhNmyl mVydGlj IDjtCPmzB648AJPgxUwyZjI vZGluZyBEYXRlOiAgMDcvMj kvMjAyNDwvdGQ+XNDhSAY8v WxlPSAn rKDxUDyoFa3zoUmmsVcoJR4 xGKFonuceCCCimO7uFITuvM NczAopHL0fTEMiixcok864Z iAxMHB0 EJMtpWWzQ9XdqX6aWpUqGNH dMJYvV9DyzEYiOJseI255MG vuSzR1HITnitUnI1IqXNQvg WduOiB0 t7B2Rg3Bx2KevqoxW0QakLF jRcJxQjnyRJj5U5AfUasxsQ I+PH97DDAvXD60NDk0IJO6d WxlPSdi MAJsQ0CawF2fTyBqAFTyJUS kOyc+PHRhYmxlIHdpZHRoPS boZFDmRuLwgJrpEJ0hOk3lE GVyLWNv gUsdeULzXcPhs3byOZOyIZo tIS4ukHifX4YlbZM2FJEwr2 i7Wn80H50pJ4TusUK+PGNvb UN4bTK8 qY6pMqDlCmQ2FKfkR383TsU ulPIxWafeq2men8qvzYo1Zd F5GXQnorHhlYxeSIY2f3BnE p05A92y IHdpZHRoPSIxNSUiIHZhbGl nlp2pgV8yPn6+WBOjhSM6jF C0wU0dQbQvBgQ8HBizD348H nRvcCIv Zvnih0yqe4jagGe0FnQiAAX fhbYoaNvlTKY1r1RsNz19K5 VspJugr2XsEtn3xg36lYYrr 9R9cBL3 W8ZpJJUlpjmiiUFayLcmFM0 aGUYwhzrkDBTylU8pBEMsD3 p2AuNkNoF6OAraM1BmpcC4F GJvbGQg UJCgqYGOuF2foouip7txnen mCaXuXTZbQMg8IWl2ZQWnbQ gmTxLjJJG0NdU6MIG4rDMtc S0ciVpu bliebE5nHxk+TPJ5xZXezYN DLS0dUmevhSX+GIObCVR2dR cbKSpjHVBzyY0wTPSgD8b9B iAwLjA1 LJtdI9RrbwX1RQGjjMHjPQQ yqFRHoP0cdvpgz9fmhraoHq RiYKEpVVg4BFr5XZShwPqeX iBsZWZ0 GqC3IKY4cCUueV0aaCcmalu gvM9lCas+DjmroTnpWHZ7CE j4K7GfUjb1OYCvlMqrTG4ce GFkZGlu Tp4mdFikxYlnRC7qGBLikcl nx160LqJrk5pzSFBphBGxRP xtAWO1G62ga1L0JEErIKFxE LC2tKO6 zA9psYyyunlpsEOcrEsjjyQ dlRuqLFuuUFkpV833TYDxvP xkZtXbQKq4E6ZqDjq1DCLpo FwcSD2m lVMxQEjxGz5vyVpfwZyjZY7 eCHGawtyxx890KoQvw1ksGY QurYQmTCgrXOI7U82se0I5P CMwMDAw QFM7sAY5dA6cuZxvbzbieWF mdDsgdmVydGljYWwtYWxpZ2 79FHVszXovMrFsmDu0T0HsO ay7HBSp kUqaQQ3chRZtEIcpNs1zzNq inUiqNK9wYELdtgitx329Yr Gzw9lpUVAclDSuIXqaEFZ1X 02qw9X9 BGSbZZMyRGT2gKR0yF4kuBq nbjogbGVmdDsgdmVydGljYW kxPZgkE122JRXgcCnxFoTec GllbnQg CKwwAAr0Q5NeQixduRS+PC9 9HESySV73vOOxhLJpf4wfqA p5XkWeCHNfWBX0xPzyZCibc 3JkZXIt B01grRCxo5T5GKMtyRwrtNX pZfZluAZ6cP1uSVcoskpaq0 qsyqdvSvenu7uchj94nC60K 29sIHdp ZHRoPSIzMCUiIHZhbGlnbj0 zuC1pVz4+OSTmxZV9wGJ6nU 3pZVUeBmZ3XHyuI307MsDgt CIvPjxj w3gki8logQj6MzR1ZZFpbjR veYvyJPR9c0HvUn55A90iYQ dpZHRoPSIyMCUiIHZhbGlnb e3pnK4r Ii8+BBIhjZX8nDP6fY9lXiP vRkI0JJppX248QaCvdZDqHa ouC82mF7ZsxXM+QKHvOku3H CBzdHls KZ2qjMXoZGupQl4rSJB8ZyC wXaLsQGowL2VdOLTqofzjky jkxHU0NZQyRMLojT07Gz6vq DogMTBw gDZZkD6ortsrr8qznhepIhH rQCOuBUm3NIm8SQOmgXecNz JaZWI5FrT4IXZ4gDJznN6ks Glnbjog bC6aR4SzEUXkfdnzNt45cO9 uWxDwShU7MLpzTne+TUNDQU 5OLCBIRUFUSEVSIEVMSVpBQ kVUSDwv dGQ+GPPnNEY9dIinAQcgEYO wxG8yLWLzG5z6FoHyMeF8VU zxY5WkXBPjbynnMq58fF2iA iAwLjA1 SQvsP7AjxlO5HNHmqIEtWUh yEGR1I72po1R6EDGxCJPuVZ J1aKO2vB3xzWzncybmgCQzr DsgdmVy eTsoICzpRFslV429UPAmbQd xIjCsEoF8BkT9ONY6B9DfCo a9MDLizSgcJY8vxMMlHZzhX n6zhNfh sCmkGX0xOBYvaksgJOZdvI7 eZHBscEAzxHptCC6oWTFdhi xqr922VfTnEDA7AAJgkVGtN 7XzdW4h NxRrOIUhMEToT0WkyVVcMLt lS803YVvvKpA4KJUeouHmB7 QwOEAqxIueJtT6r1T2Fd5dW CBZZWFy czwvdGQ+NGSaHYJ5dYcxNZt wIOUbbR9mQLZhX2z4FyZvGw V0SBnuS9AlXADlgibpNw38u B1pLxHl HqB4YXrkH0PzlgP8EWIkoRB aACzoVYK0E97nq1F6NWNmID QrHGF8nTF4xD5puLpbcjovz GVmdDsg krMrkGbwHTdrWOopP419NHO vcDsnPkZFTUFMRTwvdGQ+PH AuQHR8cKafYJndFOPbhG4hN RVwW8g1 SlItUxA0YMkxU2ClRTRlnod oYz58wX5oBaOaHfE7WVevR3 KpatA7RDThyBTwJGjsAKS3Q 80sc4I0 MRRfUXCaNUY6wGR8kT2yjEf nbjogbGVmdDsgdmVydGljYW gfYVqnK643OPCxfDheFdZsK ZUvSY0t eTwvdGQ+FP05dj18H4BmEsz yVhy8WDTsQDT3kVC7xT5eTT ZhEAnqe6A4dZF2C9VuccIac o9yh3rj MDIoRMdoR97pkQObm7A7FCA roCW8YJPknFffNpNtuJ82Zg c+CUZzhIjia1TkPssdw0sxc 8nfcFn7 KpMsPNSzcoOscDzpIWX3n1P nVv46F06fIJtlFNUlHQJrOA VnAPUsnEjtzb6zxB3iFi3+P GNvbCB3 mMW6qY9yDqTrEzB9BJrkS26 2HoNonNLlHtgyd6dvk1pdlO w1LrIpOTPoinTfwSekGVG3k 3ImFh00 K5DljKldd4RjYbq0vn95vRE tr7Q9pUY0I0JhXQBxvxwsmT HppWvfAV4iFBBueoemQYDeg H8oIXPv K2i1XmNpFsM6QNasQ0OxxeR 0XQTutAYuOANvvVCTgA5fxb xyw1jaunesXuWdBDRwNHn1Y Xv3DSBl eCouKbRyNLS7NoG8IEK5oDF gaF3tjOwsbqukeA5aSgj+UG t2s1wrrEPsIW8buWI5BG61W R72gFXd j5A7zGU6H5KaSIHwwuzrwtv vaRS5UTSyASOmhW91Rx8jeK psIz0hPRMsRMM5EEGwpTNpQ 5ThoN0w YcVjCWShAOZzJ9PdyJEwAPl eD639VApnNsC7MANucgWvC0 WjCZCtdXbcVdC7e9G6Go9UP Z42MC68 VZ44tGOki4L9kFU8O8VaWXH rewhanncqtXP6CZUeDMMrjO 71Ld9hjKezWt2cZUCwTVR5P FRpbWVz N1VheZ1hPqMlDVOfKUOgJ2U tbCObGVysR884EEgzAkG8QD PxyzWbT9VeQGMdcKfbLqR3p 7V7Gr7B Fn86HV23WB10yEToh6Y0fLB 0U0IeRJMmdbvnhuefsBP3FO OtLWPhlB58Gq2nsYvxVo0hZ CAxMHB0 IMVheLVfX8VqlB8jCvEtYFN dKFMnK3OefUZeATldF466KN loWwD6EEFgbbCnW4TvYPYlt WduOiB0 q4H7Gg3FJWrqpkz7D4QdUlv vdHI+TY62RVNwLY57wWPrnF Pmu4aywPr5OvYxUVUjKJM4z WxlPSdi b3J (more content not included)... [facility] Coding Summary HTMLBase 64 MngijohtNYm7kJl+PGhlYWQ +ST4VYQBxR49coHFshF6iH1 NMTElOSywgQVBQTElOSyIgb lNpXM3ocUGxCYAg IC8+SH1eLWDeKmktiIEeu8F 0kND4D89dcm2wCOhjdKG0KU YiXiAmptpak2bfgYz3YRhmF mluOyBt QIGvtR38NZY7rZ25Tw60gRF jlXHvh7fckLv2TpWkQLYzQZ Q3vAunQLapi3XgZOKsZ00vc ESex8B6 STTckJjeuIDlLsPmbVB9mL9 gZZiplijjx2zlehanLbw6jr 15vUIiq3T3xLA6V9FwbtF0T GJvbGQg FydspFIEyZ1udcmfb6whvsv iAxWeZSErLCy3LXr6PAOwmO ouSyKeKZ03KCJ6UUTqwxLpG 2FsLWFs eRxwAoB1d8P0Xw9CF2RFLza iO1OLGSSRJOtqfEB+PC90cj 18V1SePsdiLtd4TCFzEMH9b LD4xZ8x EIZxRGbiw1J6kNK9P5WttfH apu5wc6etPOZiDQvaB69fwB Bxp8C3QSEwxAG7OKGmmLbhM iBzaG93 Oyc+FBXstHnqp7XsYmupj3i eg7ktbNu6HfhtGESusnRlsN pjEJZ2a6AhCy6wACPweVR1h SW2cE2c MnCuQxY3LHdvI311OaFynTX vWccuA17dD3XmtAR+PHRyPj d1HACruHjsTT5jK5PpHLHvy mctbGVm nLceVB3fLALhvshsQPWqkR9 uSFWhG8v0EhJuWsX4EDavH9 VtSTAsmivyQm46nN9bElYoD yI2MBhn N5LboeT7DFJvuEVfXQuyGQF 3F07wx1A7FGLaHBLlCDW3pS G7wQ5jxGjkhvoqoWJteRwsq mVydGlj LQreUOsbX171TSEstZtwEzP vZGluZyBEYXRlOiAgMDcvMj kvMjAyNDwvdGQ+MZUqDRL7l WxlPSAn wBFfOIvbRo2qlVjrnLzhRK1 nPSVbcibiNZHkfL6pJNFpoS MxzAkaLD5uPRDffqorz679P iAxMHB0 MUQngTKnX6CgcM8gYqBqKLT sIDCzK6ZvwCSuSXtyU936BO bfVgD7JBDafhBeE8ErFKTkw WduOiB0 p8Q9Ad4Pz3VnindxQ9WcqUI vMjHjYabiHYu7Y6SaNiytfQ I+CK60SCJqDA82KSf1EAP4z WxlPSdi CLBuB5IlhX7sXkCoITEpXFN kOyc+PHRhYmxlIHdpZHRoPS ekSMYjIlVzkWgaYQ2yId6mT GVyLWNv zXptsCXxRrPkb2cwEEIzJSb yPI9pjZoiJ3HusBM5BNJza2 f2Wv64J16kH7IjdZB+PGNvb XB8sAY5 bC4rVuQcSgQ1NFyzR394FwX hsEZnIalwr9qco3bdlAo7We E9GZXsrpEbyJzeYHA5i6XuB h64P54q IHdpZHRoPSIxNSUiIHZhbGl mrc7wlU2rKp5+KAVfzVZ4wY G8wT6aQgNrBkV1YHhzX416Q nRvcCIv Iintm9uun4bwgZa4ZpRmDZY yqpHgmBniTTY3k5UsZj23E9 ZswIbcc5RfKzx7ty42oAVlz 8L6nUD8 N3LcEJZrrdycrGIliKxlFP8 dHLEnyguiYHQtxT0cKJGzX3 d4YbOyUyH0YAljK7JcuvB3Q GJvbGQg MOBdxDDUaF7qpdfvl6njdql fQzNcKZWcMGn8RHi0XIFpxK haVeQcVPO9ZyL5IYE6oYYpo A0kuEef lssioW8wDwr+BAP0iBPbmIT GWY5rEkyxtWI+ILDtNRQ4vU pkWHruGZTuuP4gXJTeO3m3D iAwLjA1 HLbgN2JkrrQ0KZSuxUUbQQI ilUYZpH2vsnxwo2lcexhjKr KgKJTdGXd1CPg4CRJpbXlxF iBsZWZ0 IvH9FAX0wNOqiX3ssGdwuqc ddV9yRbj+UtzznDojVDT2IM r8Y2IeIyv0LAUndGaaLM0es GFkZGlu Xq2xeAzdtEpnCY5hTBYozpq hx774IcKsb5ldOGHmsXPiSV khJNZ4M44ob1T6TYHrGQSqG NB4dIP1 nU8ajNfyxtszmFWgqHxocnL gtFyuUXdyPBgnH579WWLprQ plEvRcCBc6U3AwLti8UUMwc CggDA5b bFCpWDigZh7qxKadmJkdKV1 oANBatnxqs322EeZwy1ocLG HlsSDcDEgrPJJ5Y53za0S1T CMwMDAw DXI2wOH2eD0qcQiwivjmlHN mdDsgdmVydGljYWwtYWxpZ2 66RHTnaJzqPqCeoEk8N1OvL gw1STPo mHtlSM7mgHBbBPimIl1vfIg hjGmmMV0pZMXcxcgnc405Sv Yuc5ntDQHajFDdHXvsZGI8P 71kv9D2 IJVxPKZzTFH5iER8rO1xuMy nbjogbGVmdDsgdmVydGljYW liIJsyV502KRYexLeiSpJkr GllbnQg INeqNId2N3FmFgyyrXY+PC9 3JHRvXH73xLTauBNwg7inhQ y7SdBsEMQtOPY9pEuaSQsbu 3JkZXIt U00owILqf6J6WONfnJbwrBR pPtHtbOB0gG0wYXmugxhtu2 plicbyCceil7vlzn93eP96T 29sIHdp ZHRoPSIzMCUiIHZhbGlnbj0 tnL9uXm6+KBUyjUP4rPL3rP 7fZNCqIyA4SEijV794ObBrs CIvPjxj g3bsy3nxkJw9RgJ2DIFexrA ntGnvIQE5q8KfUc77L62fGV dpZHRoPSIyMCUiIHZhbGlnb g6duH9v Ii8+HMZnbUF6tPE8uL1vTwY hWaA1HGbwZ321CoSoqELbNj rdO48zX2TxoHK+ELYjUqq9K CBzdHls YD2ziEMkPBigBq0rRFR2QmZ xUmBaSZpnH3DnHNCoafrxkn zomLE2AULqMKLhrD36Wf1qq DogMTBw pVLByY3yuatna7qwhfyqOmR oTJPxEAn3WCo0VVWukYouVm NoEEL0LaG3PYW8rAFngH4sm Glnbjog jJ7fL4HwPIJiehtxKp77aC0 eNwHhPuU2UIagJlt+TUNDQU 5OLCBIRUFUSEVSIEVMSVpBQ kVUSDwv dGQ+PJLjPVJ6jIuzLWasJJJ rcU8kFDXrI1o7LhBfIxU5CX afA5YwIMTvbpehKb25pO7eW iAwLjA1 XMhnS5MbhhF0CKWewORfTOk nOJN9T04sc4F8VITjCDVbCA J5vMK1fE0mmNyvbwzssUQqy DsgdmVy yFqrDIvmXYdcN033BQBxyWs oGwIjAnN0LfZ9XDH5H8GjOf l5MSSqeIgrXZ4jnUUcJJkxI p7tlRqm hIlySN8gXIMvdtpsBIFnkV4 sFCCyxZZxzSkhRG6lYRArhz etb155HnSaQNK0VEZltNUbK 5BdfI8q PsEqBAPuWFLuK8TisABoWVp eJ631DOroMlN3NHMkvfVaA4 AoYDKknEpoXtW9e7K1Am6sP CBZZWFy czwvdGQ+USLxZOS6zTqqKVc iOHXxfO0hBWXvT1x1CjNiPs H2GNaxW6SsVBUevtdqQr28u M8cVeBs JdX8ASdjQ8PlpcO8WHVydPG uVViuZEM0C43mb3F7OOBfXB AyAMV0mXB9wH0ftDcnrdksg GVmdDsg euIeaSgmLSplZUmlK350BLU vcDsnPkZFTUFMRTwvdGQ+PH UsCBD1rOmfYTdvAGCmnC1rU QVkV4y6 DjSaWtJ2JXcmN6XfINMcqva tMx21hR6nFyHeKeH9HUxjL8 WmmkW4OEAvbVMzOIqoTEV2R 26co8G3 VYIbSUYxYSJ5tGK1gK6apYk nbjogbGVmdDsgdmVydGljYW rhABitI331WJAmrOzkMmPkI TYeHF8c eTwvdGQ+XZ75em78Q5LnJdg kAgy7OIUqRDK9qGS6fN5zLK WgCGnze2G7nNY7Q3QcjiRlk h9hh8qj XXYzQWdjT80qiEKoe5J0PFD oxMD0TXFhbStaPvNzeL12Uj c+JSNbwHspt4CzGephv0xvn 7bjiJo7 HqHhCJXgpgXgaUaoMYS3k4H xFp12Q95wDPovZODgKISvKU EdIYVzmZqgco3ifN7jLx3+P GNvbCB3 hCA9oJ7cBtYiZiK1UPiwF00 6HoWcfDOgJacsy2ako1xkgA d3QdYhGMMorcTtsDbdHJA5m 3RaDy87 Q6GurBqgb8HtOgx9au80sNB hd9P9eDL1C6HiWOCummtagW KdaAygBF0hXEBtkdvzKHYar F9iSSLg H6m2QvKhCcM3IIxbE7RnptH 8WQTnnFSyWFJrbWIWhF9ikm ydn4wnttheQwAvWUWbDOw7Z Ut2LTNs bBinHwNhMPU4KuA6OGA2eDL weL5yfDmyrzkbxJ0aUyj+UG m0q5veyLFtFK2cgCE6AB85U E26fLVt b2G7yQR1H9DjOVGhnxnhfes dfSK0KCCdSHTcyH60Yn5vdC qdSi0uRQScVQP3ZJGlyHVkG 8OkhP4h WeCnYQCnHEAkK6SwyOWkAUf tZ213LCdtYdQ0MHMukfKoL2 DlODKwgHctNoJ4v8M8Gs0SQ I14PG78 PG54jMPej2L1xIX0X4IjLEY vdhjhzaydtXL0AXTaKJYhcV 12Wn2ckYckUo1kVOJkYXZ9E FRpbWVz I7MwlO1lFmJtJEGwCHXrT5V ryRLzFYqmD923NKtiVsJ0KB IeozPoP5DgEXSioNctQmZ7v 7C3Xy1D Qv37IP26KZ05mQHcq3W1dJC 4M0VzYQZchixnfqjavUL6ZJ QlXPEtxV45Yc9qfPyeHn5nR CAxMHB0 TXMmbYAbM6WmrU2jOuKvAML oHIFrX9MszXTxKWinF953DL ukVzE2XVQbvmPvK2GfBADmv WduOiB0 d3J5Zl7YJFitrzn4I7YsUxi vdHI+ZI70CCXiKL44uIVmeD Lpg1jzgZo0RlSjTEPvVVU5s WxlPSdi b3J (more content not included)... [facility] Provider Orderson 11-09-2023 Provider Orders [id number] GTIFF [facility] Chlamydia/GC Amplification L Con 11-04-2023 Chlamydia trachomatis, AC LC Negative Invalid Interpretation Code Negative [facility] Comment on above: Performed By: #### [id number] #### [facility] (DEFAULT) [address] [place] [address] Neisseria gonorrhoeae, AC LC Negative Invalid Interpretation Code Negative [facility] Comment on above: Result Comment: Perf ormed At: =G [facility] [address] [id number] Ivan Calvin MD Ph:[phone] Performed By: #### 7 [id number] #### [facility] (DEFAULT) [address] [place] [address] Consent Formson 11-03-2023 Consent Forms [id number] [facility] ED Note-Nursingon 11-03-2023 ED Note-Nursing Fluconazole 150mg ta b called into [facility] Patient contacted and notified of the results of her culture and the prescription that was sent for her. Instructions on how to take the medication was given, patient verbalized understanding [facility] .Auto Diff 111-02-2023 Auto Fannin % 9 % Normal 12 [facility] Comment on above: Performed By: #### 1 [id number] #### [facility] (DEFAULT) [address] [place] [address] Baso Abs# 0.0 x10 Normal 0.0-0.2 [facility] Comment on above: Performed By: #### 1 [id number] #### [facility] (DEFAULT) [address] [place] [id number] Basophils/100 WBC (Bld) 0.2 % Normal 0.2-2.0 [facility] Comment on above: Performed By: #### 1 [id number] #### [facility] (DEFAULT) [address] [place] [address] Eos Abs# 0.3 x10 Normal 0.0-0.4 [facility] Comment on above: Performed By: #### 1 [id number] #### [facility] (DEFAULT) [address] [place] [address]493 Eosinophils/100 WBC (Bld) 9.0 % High 0.9-4.0 [facility] Comment on above: Performed By: #### 1 [id number], [id number], [id number] #### [facility] (DEFAULT) [address] [place] [address] 40998 Lymph Abs# 0.4 x10 Low 1.3-2.9 [facility] Comment on above: Performed By: #### 1 [id number], [id number], [id number] #### [facility] (DEFAULT) [address] [place] [address] 40339 Lymphocytes/100 WBC (Bld) 12 % Low 14-48 [facility] Comment on above: Performed By: #### 1 [id number], [id number], [id number] #### [facility] (DEFAULT) [address] [place] [address] 08695 Fannin Abs# 0.3 x10 Normal 0.0-0.8 [facility] Comment on above: Performed By: #### 1 [id number], [id number], [id number] #### [facility] (DEFAULT) [address] [place] [address] 96033 Neut Abs# 2.4 x10 Normal 1.5-9.2 [facility] Comment on above: Performed By: #### 1 [id number], [id number], [id number] #### [facility] (DEFAULT) [address] [place] [address] 67122 Neutrophils/100 WBC (Bld) 70 % Normal 44-88 [facility] Comment on above: Performed By: #### 1 [id number], [id number], [id number] #### [facility] (DEFAULT) [address] [place] [address] 62862 C Genitalon 11-02-2023 C Genital Heavy growth of Yeas t No CARLOS performed on this organism No growth of GC at 3 days. 4+ Gram Positive Rods Few Yeast No WBC's seen. Gram Negative Diplococci not seen. Normal [facility] Comment on above: Performed By: #### 7 [id number] #### [facility] (DEFAULT) [address] [place] [address] CBC w/ Auto Diffon Erythrocyte distribution width (RBC) [Ratio] 13.7 % Normal 11.5-15.0 [facility] Comment on above: Performed By: #### 1 [id number], [id number], [id number] #### [facility] (DEFAULT) [address] [place] [address] Hematocrit (Bld) [Volume fraction] 40.5 % High 33.7-40.4 [facility] Comment on above: Performed By: #### 1 [id number], [id number], [id number] #### [facility] (DEFAULT) [address] [place] [address] Hemoglobin (Bld) [Mass/Vol] 13.7 g/dL Normal 11.3-15.9 [facility] Comment on above: Performed By: #### 1 [id number], [id number], [id number] #### [facility] (DEFAULT) [address] [place] [address] 08434 Man Diff? Auto Invalid Interpretation Code [facility] Comment on above: Performed By: #### 1 [id number], [id number], [id number] #### [facility] (DEFAULT) [address] [place] [address] 40540 MCH (RBC) [Entitic mass] 29 pg Normal 24-34 [facility] Comment on above: Performed By: #### 1 [id number], 1525774, [id number] #### [facility] (DEFAULT) [address] [place] [address] 30471 MCHC (RBC) [Mass/Vol] 34 g/dL Normal 26-37 [facility] Comment on above: Performed By: #### 1 [id number], [id number], [id number] #### [facility] (DEFAULT) [address] [place] [address] MCV (RBC) [Entitic vol] 85 fL Normal 81-100 [facility] Comment on above: Performed By: #### 1 [id number], 2426861, [id number] #### [facility] (DEFAULT) [address] [place] [address] Platelet 106 x10 Low 138-427 [facility] Comment on above: Performed By: #### 1 [id number], 2186948, 0604654 #### [facility] (DEFAULT) [address] [place] [address] Platelet mean volume (Bld) [Entitic vol] 7.0 fL Normal 6.3-10.2 [facility] Comment on above: Performed By: #### 1 [id number], [id number], [id number] #### [facility] (DEFAULT) [address] [place] [address] RBC 4.74 x10 Normal 3.70-5.30 [facility] Comment on above: Performed By: #### 1 [id number], 3108235, 5385982 #### [facility] (DEFAULT) [address] [place] [address] WBC 3.5 x10 Normal 3.5-10.5 [facility] Comment on above: Performed By: #### 1 [id number], 0410689, [id number] #### [facility] (DEFAULT) [address] [place] [address] CMP Standardon 11-02-2023 eGFR Non AA >60 Invalid Interpretation Code [facility] Comment on above: Performed By: #### 1 [id number], 2315704, [id number] #### [facility] (DEFAULT) [address] [place] [address] eGFR AA >60 Invalid Interpretation Code [facility] Comment on above: Performed By: #### 1 [id number], 9601064, [id number] #### [facility] (DEFAULT) [address] [place] [address] Albumin [Mass/Vol] 4.1 g/dL Normal 3.5-5.0 [facility] Comment on above: Performed By: #### 1 [id number], 8305785, [id number] #### [facility] (DEFAULT) [address] [place] [address] 98110 Albumin/Globulin [Mass ratio] 1.7 {ratio} Normal 1.4-2.6 [facility] Comment on above: Performed By: #### 1 [id number], 1214205, 1351910 #### [facility] (DEFAULT) [address] [place] [address] 22038 Alk Phos 40 IU/L Normal 32-91 [facility] Comment on above: Performed By: #### 1 [id number], 1375429, 4929901 #### [facility] (DEFAULT) [address] [place] [address] 57515 ALT [Catalytic activity/Vol] 20.0 U/L Normal 14.0-54.0 [facility] Comment on above: Performed By: #### 1 [id number], 5911864, 6528743 #### [facility] (DEFAULT) [address] [place] [address] 64191 Anion gap [Moles/Vol] 9.5 mmol/L Normal 5.0-19.0 [facility] Comment on above: Performed By: #### 1 [id number], 9637217, 8411847 #### [facility] (DEFAULT) [address] [place] [address] 20510 AST [Catalytic activity/Vol] 19 U/L Normal 15-41 [facility] Comment on above: Performed By: #### 1 [id number], 9246782, 7214606 #### [facility] (DEFAULT) [address] [place] [address] 70955 Bili Total 0.7 mg/dL Normal 0.3-1.2 [facility] Comment on above: Performed By: #### 1 6367904, 8026333, 0388515 #### [facility] (DEFAULT) [address] [place] [address] 65932 Calcium [Mass/Vol] 8.4 mg/dL Low 8.9-10.3 [facility] Comment on above: Performed By: #### 1 [id number], 8895567, 4390751 #### [facility] (DEFAULT) [address] [place] [address] 63336 Chloride [Moles/Vol] 109 mmol/L Normal 101-111 [facility] Comment on above: Performed By: #### 1 [id number], 0909248, 0084267 #### [facility] (DEFAULT) [address] [place] [address] 92657 CO2 [Moles/Vol] 21 mmol/L Normal 21-32 [facility] Comment on above: Performed By: #### 1 [id number], 4852007, 5901433 #### [facility] (DEFAULT) [address] [place] [address] 64575 Creatinine [Mass/Vol] 0.71 mg/dL Normal 0.60-1.30 [facility] Comment on above: Performed By: #### 1 [id number], 2309898, 7112300 #### [facility] (DEFAULT) [address] [place] [address] 38814 Globulin (S) [Mass/Vol] 2.4 g/dL Normal 1.5-4.3 [facility] Comment on above: Performed By: #### 1 [id number], 0388499, 0051722 #### [facility] (DEFAULT) [address] [place] [address] 56089 Glucose [Mass/Vol] 95.0 mg/dL Normal 74.0-118.0 [facility] Comment on above: Performed By: #### 1 2594948, 7956512, 8040278 #### [facility] (DEFAULT) [address] [place] [address] 42363 Osmolality 270 mOsm/L Invalid Interpretation Code [facility] Comment on above: Performed By: #### 1 [id number], 5525029, 9453589 #### [facility] (DEFAULT) [address] [place] [address] 82424 Potassium [Moles/Vol] 3.5 mmol/L Low 3.6-5.1 [facility] Comment on above: Performed By: #### 1 [id number], 3210119, 1203138 #### [facility] (DEFAULT) [address] [place] [address] Protein [Mass/Vol] 6.5 g/dL Normal 6.5-8.1 [facility] Comment on above: Performed By: #### 1 [id number], 1318143, 2927742 #### [facility] (DEFAULT) [address] [place] [address] 82602 Sodium [Moles/Vol] 136.0 mmol/L Normal 136.0-144.0 [facility] Comment on above: Performed By: #### 1 5249787, 3366696, 9758323 #### [facility] (DEFAULT) [address] [place] [address] 23772 Urea nitrogen [Mass/Vol] 7 mg/dL Low 8-26 [facility] Comment on above: Performed By: #### 1 [id number], 9362061, 4313582 #### [facility] (DEFAULT) [address] [place] [address] 16035 Urea nitrogen/Creatinine [Mass ratio] 9.8 mg/mg Normal 4.6-16.2 [facility] Comment on above: Performed By: #### 1 [id number], 5739471, 5877375 #### [facility] (DEFAULT) [address] [place] [address] Abdomen/Pelvis w/ Contras ton 11-02-2023 CT [...] DO 11/02/23 3:37 pm Technologist: Adama DUFFY [facility] ED Clinical Summaryon 2023 ED Clinical Summary [facility] Emergency Department [address] [place] [address] [id number] ED Clinical Summary PERSON INFORMATION Name: JAZ SANDERS Age: 28 Years Sex: FEMALE : 1995 MRN: Acct#: Visit Reason: Abdominal pain; Nausea; FLANK/HIP PAIN, FEVER Arrival: 11/02/2023 07:57:28 Discharge: 11/02/2023 13:31:00 LOS: 000 05:34 Check In: 11/02/2023 07:57:28 Checkout:11/02/2023 13:31:00 Address: [facility] [address] PCP: Amanda Ford CNP PROVIDER INFORMATION Provider [...] Follow-Up: With: Address: When: Amanda Ford CNP [address] [place] [address] Within 3 to 5 days DIAGNOSIS: 1:Hip pain Patient Understands: Yes - Patient/family/caregive r verbalizes understanding of instructions given Comment: [facility] ED Patient Summaryon 024 ED Patient Summary [facility] - Emergency Department [address] [place] [address] PATIENT DISCHARGE INSTRUCTIONS Patient Information Name: JAZ SANDERS Age: 28 Years Date of : 1995 Reason For Visit: Abdominal pain; Nausea; FLANK/HIP PAIN, FEVER Arrival Time: 11/02/2023 07:57:28 Primary Care Physician: Amanda Ford CNP Attending Physician: Narda Phillips MD Comment: Visit Diagnosis: Diagnoses This Visit Abdominal pain ([id number]) Hip pain (M25.559) Nausea ([id number] ) The Pharmacy at [facility] is open Tuesday through Tuesday from [...] alcohol and/or drug addiction problems; contact the [facility] 08/11 Crisis Hotline -Text 6EUCN ll [phone]. If you received any narcotics, sedation, or [...] documents With: Address: When: Amanda Ford CNP [facility] [place] [address] Within 3 to 5 days Medication Information: The exam and treatment you received today in the [facility] Emergency Department were for an urgent problem and are not intended as complete care. It is important for you to follow up with a doctor, nurse practitioner, or physician?s histology assistant for ongoing care. If your symptoms [...] so we can reach you if necessary. [facility] Emergency Department has provided you with a complete list of medications post discharge. Please inform your nurse practitioner/provider of your visit and for further instruction on these medications. Any specific questions regarding your chronic medications and dosages should be discussed with your primary care physician(s) and/or pharmacist. New Medications [facility] [address] [place], [place] [id number], [phone] cyclobenzaprine (cyclobenzaprine 10 mg oral tablet) 1 [...] 0. lidocaine topic (more content not included)... [facility] Extra Greenon 11-02-2023 Tube Collected Yes Invalid Interpretation Code [facility] Comment on above: Performed By: #### 1 [id number], [id number], [id number] #### [facility] (DEFAULT) [address] [place] [address] 05852 Test Urine 1on U Preg Negative [facility] Comment on above: Performed By: #### 7 [id number] #### [facility] (DEFAULT) [address] [place] [address] 92897 U Preg Internal Control Pass [facility] Comment on above: Performed By: #### 7 [id number] #### [facility] (DEFAULT) [address] [place] [address] 15509 UA Vijgv9ve 11-02-2023 UA Bacteria Trace [facility] Comment on above: Order Comment: Urina lysis Microscopic order added on by [employer] Expert Rules system. Performed By: #### 7 [id number] #### [facility] (DEFAULT) [address] [place] [address] 70393 UA Mucous 1+ [facility] Comment on above: Order Comment: Urina lysis Microscopic order added on by [employer] Rules system. Performed By: #### 7 [id number] #### [facility] (DEFAULT) [address] [place] [address] 40759 UA RBC None Seen [facility] Comment on above: Order Comment: Urina lysis Microscopic order added on by [employer] Rules system. Performed By: #### 7 [id number] #### [facility] (DEFAULT) [address] [place] [address] 79828 UA Squam Epi Few [facility] Comment on above: Order Comment: Urina lysis Microscopic order added on by [employer] Rules system. Performed By: #### 7 [id number] #### [facility] (DEFAULT) [address] [place] [address] 51543 UA WBC None Seen [facility] Comment on above: Order Comment: Urina lysis Microscopic order added on by [employer] Rules system. Performed By: #### 7 [id number] #### [facility] (DEFAULT) [address] [place] [address] 56649 UA w Culture if Ind Standard on 11-02-2023 Breakpoint UA [facility] Comment on above: Performed By: #### 7 [id number] #### [facility] (DEFAULT) [address] [place] [address] 72133 Color (U) Dark Yellow [facility] Comment on above: Performed By: #### 7 [id number] #### [facility] (DEFAULT) [address] [place] [address] 09535 Culture? Not Indicated Invalid Interpretation Code [facility] Comment on above: Result Comment: Resu lt created by rule GL_MAGR_ADD_UA_CULT Performed By: #### 7 [id number] #### [facility] (DEFAULT) [address] [place] [address] 65531 Glucose (U) [Mass/Vol] Negative Normal [facility] Comment on above: Performed By: #### 7 [id number] #### [facility] (DEFAULT) [address] [place] [address] 23992 Ketones Ql (U) TRACE [facility] Comment on above: Performed By: #### 7 [id number] #### [facility] (DEFAULT) [address] [place] [address] 63872 Micro? Indicated Invalid Interpretation Code [facility] Comment on above: Result Comment: Resu lt created by rule GL_MAGR_ADD_UA_MICRO Performed By: #### 7 [id number] #### [facility] (DEFAULT) [address] [place] [address] 34497 UA Bilirubin MODERATE Abnormal [facility] Comment on above: Performed By: #### 7 [id number] #### [facility] (DEFAULT) [address] [place] [address] 41475 UA Blood Negative Normal NEGATIVE [facility] Comment on above: Performed By: #### 7 [id number] #### [facility] (DEFAULT) [address] [place] [address] 21743 UA Clarity SL CLOUDY Abnormal CLEAR [facility] Comment on above: Performed By: #### 7 [id number] #### [facility] (DEFAULT) [address] [place] [address] 16871 UA Leuk Est Negative Normal NEGATIVE [facility] Comment on above: Performed By: #### 7 [id number] #### [facility] (DEFAULT) [address] [place] [address] UA Nitrite Negative Normal NEGATIVE [facility] Comment on above: Performed By: #### 7 [id number] #### [facility] (DEFAULT) [address] [place] [address] 57663 UA pH 6.0 Normal 5-8 [facility] Comment on above: Performed By: #### 7 [id number] #### [facility] (DEFAULT) [address] [place] [address] 93405 UA Protein 30 Abnormal NEGATIVE [facility] Comment on above: Performed By: #### 7 [id number] #### [facility] (DEFAULT) [address] [place] [address] 23978 UA Spec Grav >=1.030 Normal 1.001-1.035 [facility] Comment on above: Performed By: #### 7 [id number] #### [facility] (DEFAULT) [address] [place] [address] 19502 UA Urobilinogen 1.0 mg/dL Normal 0.2-1.0 [facility] Comment on above: Performed By: #### 7 [id number] #### [facility] (DEFAULT) [address] [place] [address] 36022 Urine Source Clean Catch [facility] Comment on above: Performed By: #### 7 [id number] #### [facility] (DEFAULT) [address] [place] [address] 34928 Wet Mount.on 11-02-2023 Wet Mount. Negative [facility] Comment on above: Performed By: #### 7 [id number] #### [facility] (DEFAULT) [address] [place], [place] [address] Coding Summaryon 10-26-2023 Coding Summary HTMLBase 64 GakkondvVLg6gRo+PGhlYWQ +JD1QLJGjF22dmPJflW7rG4 NMTElOSywgQVBQTElOSyIgb bXyRH7jdYSuGINp IC8+MM1iZUPgLfwjsIHaw9H 8cDI3T80xta0uIEtmjSD3UY CpBnNwputds7vvoBp3KZmxV mluOyBt VEKtsL29MLV1aR90Je43qUM mtFMdv4otmTp7JbCxTWImVQ K8wTxdGAfnf4XnKDHvB39jb ESic4S8 YIJfyVxnqWFhIkLyyQD0bA4 iWAjiltosp4wbprchEqx9qf 68tXPll0H5yHZ3L2TdtgP4V GJvbGQg LljpgSZNvC5eqxpvw8zmygf hRdViZSUgEUs0KXr4CSWdoU tuPaVhVY75EDR8YSMobeJnI 2FsLWFs uDqmYsT8w6B5Tq7UU3BIMkt uT3QKYPCYJKughJC+PC90cj 58R6RaIncePiu6ONYtLFY8a MN2bM4r VIFzTOuri3F8jDF9F0BgyxA pez5ax9fwRKZvTYpcK27upY Cnm4D7VCScyYG8OFXrxWguI iBzaG93 Oyc+MPKueXria1GsNvorb8s ws4yguSa3BvkrODNjfdYgyJ xiOAS7n7JxVg4qOHMyaWE8i XJ3hN4h DuQfVsZ0NVoaG944ScEcbKT rYbtsZ38eU7DsbHB+PHRyPj j4SIVnqYsuGV9aG0ObNVGxt mctbGVm fUojSF6lVDHdzbcnNISrjS1 fUDHdN5d4LnRlZnK1FJqoV5 CtDIPdaruaIc92gB9jJhUfA vM5VLwl M3RiqaY7KOZvlAGiVBejXMB 7W88ej7I3KODqWPIiQLO3gP Q7yH4bxVywfxbkmBJayHkkb mVydGlj XQfyEEeiK975IFMptOqxAjG vZGluZyBEYXRlOiAgMDcvMT AvMjAyNDwvdGQ+ALSuJDN1q WxlPSAn cLKpXVkqSl6qkNgphKzzUY0 rSHTugxwjICBldX0vZDVlqA JpaOwqYA7bSJOyqhtcf924Y iAxMHB0 WIVmvVGiV8OelC8rIcSjVUV sYHXbF2BwiJCdKLiwJ745OJ vuPzA5QQZsfxBeJ4KjVQIok WduOiB0 p9Q8Dh4Nq3NretqlC0BnkGN xLiQnSvutAWz8U2KlOskzmU I+AT66VYDuIM00LHb1RCK0l WxlPSdi IYNvQ7AioM0eDcTtMNYlLVB kOyc+PHRhYmxlIHdpZHRoPS npPFAvZkBrzUnvIH3tLk4rN GVyLWNv kKqikHQjWcCcp6nnVUCqYUn nEM8pnKppI4YwmAU4VPRkr5 b7Du98Z01hE0VvcCL+PGNvb KM0gTO4 yS0uUkVnGuX0BGzdD124EnM qgFArIwxrr7lfl8ydpPr4Mi V7CGHlisDmuHrvSCS8d6IrL g48A56a IHdpZHRoPSIxNSUiIHZhbGl nkt5ueH1fJr8+ZQFqjPT9wH N8qB1uFnGqMqP8CJhfI133F nRvcCIv Qrnkg2ctn4ggrSy4UqCcOQW bglAyjGeqWJM5g4UkPn84U2 FptHfzo7MvDgm1uq31cYFgi 4A9lLN6 D6HlLCMkcnyhqLPbsMnzJB2 lBZGvzixjLIBnnK5oWMWmT9 e9CoTiFqJ0HWehM5LgzyE1Q GJvbGQg IACqvMGWvL5atamqh7ulwyx mFuJqERPoQNw3YKz6SPNclC tmNbMjLSE9KgP7DWQ7wMHha K4ueNtd xdefnG1zOer+JXD9tFQjyCV FEE8oYhofuXR+ELZcKVV4sM qcENfeGYUjvQ6oETQeJ2u2Q iAwLjA1 KNzuE9WmauL7MIDmmDQjEJL mmWDBeY4xqxpwi3yywzlkQc IdLGNyKZr1SJd6TWBsrSwrG iBsZWZ0 GnQ3PZD1bBYfvP9ihSmlcyv uxA2wQlq+PrwryFdkHRP6LX p0S6QoXkt7ECRntSdzRZ8qh GFkZGlu Az9rrQehbWmwDL0uFGIjivz kv407NwRtz1ubLNFfqACkRJ dhBNG9Y40ru0M0OKBmQGLhY UL0zSW0 kK8rnDteypoijTGpeTaqzoF mnYrmSGmiNYlqN341WFIerU pnMtYjSFc2X6VtFkb5NHAnf XlzXZ0r tAIrYEtpQg1pxFihaXlpWI0 oJNKxjmuyo930UtBtq9ozWU LmqHKdGRbzRZL8D95cp3S5W CMwMDAw WCU8pVT2kN6yeIsngkvicQD mdDsgdmVydGljYWwtYWxpZ2 86XCPhoJzhDvLahMt3S8GaP ia9NZTk kDvpVN8orUZtOPleOy2gaQn shGciIR6dEGUccemki340Au Iqf5lvTVBhlRHuITcwFUA3N 08wh9J5 JLRjNUHnFEE5uJU4vW2rcIl nbjogbGVmdDsgdmVydGljYW egOSrqG646GOLotIngIiEni GllbnQg LDnkKVl1B2IrJtkovAV+PC9 8GLCeQH08cJCexVOmb4amvK s4OoPgGFVjAUX7eBtkFIbur 3JkZXIt F52ulZGfp8D4GCIqdTzugID aAlJxnVB7zN3nJLgnfujsm3 tmkjqlOkfpa9zryi40mT95L 29sIHdp ZHRoPSIzMCUiIHZhbGlnbj0 krQ3nEi9+JVHntOE0lHC9mY 1zDPTsZdR8BUjpB891RzIvv CIvPjxj d0lpl6iyeOk8IxV0JXVbxuB plXteRGH6k3MpIa56D43fAN dpZHRoPSIyMCUiIHZhbGlnb k7feL5i Ii8+NWRwgFG3dIB2sU3tJbA bXtO3THeuY542VyHdkIYeRd xaP63rE5TfoMM+SEEpQvs2P CBzdHls YD3rnRHfQBilGt1qWIX9LcY xJjHdOOsxL6BsJGKfcdzlxn oicFV9BLLnJSHzeE50Ct1po DogMTBw iBKRaO5ltlhye2icbjehGaU zDVFzVJv0LSo5PIKqkHaqVc MqYYI9KxO4DLN1kRSenK9ve Glnbjog kO9nZ8LcGSQljprsAd05zD1 jRpXnViR3NHbbEpe+TUNDQU 5OLCBIRUFUSEVSIEVMSVpBQ kVUSDwv dGQ+DDTpWDT2wCjzMFvhOCD beH3lESTuZ5c3WwSoZyH8BV zjC2JcATEqltapRh77wQ5yZ iAwLjA1 FHkiG9MhmrU8ZSSocKRgINt ePCA5B81sy3T0GKGwBLLaQG F9hKD6mF5poFkahpthuPHzg DsgdmVy pHneANioTGrsJ332XNRybFb eYoZpSlB2WcE2RRX1J4TqBn v3QLZrfFfjTE7coXKsMCbgG m6skDka tYzqPM0hSKCthcqpKRFgcH6 rTPUxfNVagJmxPK4mNORgmi olj456ReCgLUT6UAOouYSfG 1JvqR7y XtEiTNErYASjU7EolHAuQRq lO075YIzeUtY4WDFeqeCcA1 UyRTMzwUsoVfD6j6J1La5tN CBZZWFy czwvdGQ+LSGaMTT8vNufMJp hICOoeG6aGBTqS1s0PbFnEm B0ZRxgZ2GpGSIqipnwMk37g I1qPfGa OlN4UHofD2ToodA2GGTwyEC wPIzoTAL2A36pt6T8VCZvHJ RoEIE1gKN6qO3tlSibaigfr GVmdDsg bmZkwLfiOCfoLXvjN117HUO vcDsnPkZFTUFMRTwvdGQ+PH LgQYI3jSirQHnsCSOwrZ2aL LIqB6y2 SpKlDfY2PXxwQ1HkOSIwvqr xZj63yI7zWvEjZyE2YSijZ5 VblaV4RNOqsVRsMBwgENA5O 82xs1H9 VKQsPAWkHPD9uIZ1mI1iuTn nbjogbGVmdDsgdmVydGljYW goSHfgX642HFGmbRzmIhUxZ 3Vycmlu BeJMpBVtETSsYL05QO91VE4 6T9TcZeoliAKztCS+PHRhYm xlIHdpZHRoPScxMDAlJyBzd GlvHQ3u Vd8qDJAhXPYaxJjngYAbUcH yg1jrUASvTEzyVK3pzPubZ1 ItjYE0SIPoy2y8Kz94B95pF 3JvdXA+ CQYjpCC0mQW7iC6nAdRjGvI 7UHsmZ592MaMwaCJiXwxee6 swd1ajcUa3BbFwUHAubnLbj WduPSJ0 c6QoEk02H26sRZyhEGQsLMJ jCEKsNHRcfUgxxd5bhP5gNa 8+QIZbpKL2pJY4jX5nYwExW cQ3MYmd G691EmShsNFpSxwgI58cT2D vdXA+QJTeBro0MCGvxHuoQW 8ydTFdNRxcKz1vFNY2BfVvG jIwMGlu N4RfOHBiiloaslnxlDS9KLC wGYKslK98Gh0hvYcuJl8qAD YlBEO4OROzkFRuB8CpzE8fX iAjMDAw AYMoZ7QbzNMbUDtlW708DEh kCfA9KGBxxjTlQ0RoKWQdgO sxSmE8z5A1Ms7UrSlsaVFpH B9cVjIo JOb3D6BiQqb4FQRxcYhuPE7 seEDsAZcxXi8jaIyagYvyMA 1iWSZlipbrj868KtBsv5wpU DEwcHQg LWggPKC3T60nh5T5COFvTCP kNYO2tOC7xG6iaPbbvrziuK VmdDsgdmVydGljYWwtYWxpZ 246IHRv rBvaIrMJGzf8R0JzIol2IGJ flCrhZD1shYSaRWxlEh9wjN hjnIwnJR0mFAQtojcxn464R pDlw6qo EVUxrQRnVCqmKGD8Y55cm2X 8GYIbNVZeQAZ3gNB1yM3zmV lnbjogbGVmdDsgdmVydGljY WwtYWxp S483BUDvoJziSg2AYbw3E2G rHkz9ERPqdXzeGJ7ssNUqQB cqSz9vnXxlhWmqET7pUIAll oqhk319 ZoVog4vrUNGukDQiGPqlGCN 3Q44ux1I0GGZbTPOlPSV3vT V6mO3pgOfvulkwnLPqcUhcq mVydGlj VGtvCTddN103KSMjiOvjQgN heWVyOjwvdGQ+EW98qq76F1 FrUomdTui2NKDvITU7mZU7x W0g[place] [facility] [place] content [place])... [facility] Basophils Auto (Bld) [#/Vol] on 09-15-2023 Basophils (Bld) [#/Vol] 0.0 x10 0.0-0.2 [facility] Basophils/100 WBC Auto (Bld) on 09-15-2023 Basophils/100 WBC (Bld) 0.3 % 0.2-2.0 [facility] Eosinophils/100 WBC Auto (Bl d)on 09-15-2023 Eosinophils/100 WBC (Bld) 2.7 % 0.9-4.0 [facility] Erythrocyte distribution wid th Auto (RBC) [Ratio]on 09-15-2023 Erythrocyte distribution width (RBC) [Ratio] 14.1 % 11.5-15.0 [facility] Hematocrit Auto (Bld) [Volum e fraction]on 09-15-2023 Hematocrit (Bld) [Volume fraction] 41.4 % High 33.7-40.4 [facility] Hemoglobin [Mass/volume] in Bloodon 09-15-2023 Hemoglobin (Bld) [Mass/Vol] 14.0 g/dL 11.3-15.9 [facility] Iron binding capacity [Mass/ volume] in Serum or Plasmaon 09-15-2023 Iron binding capacity [Mass/Vol] 405 mcg/dL High 250-400 [facility] Iron saturation [Mass Fracti on] in Serum or Plasmaon 09-15-2023 Iron saturation [Mass fraction] 12 % Low 20-55 [facility] Laboratory - Chemistry and C hemistry - challengeon 09-15-2023 Iron [Mass/Vol] 48.0 ug/dL 28.0-170.0 [facility] Transferrin [Mass/Vol] 289.2 mg/dL 192.0-382.0 [facility] Leukocytes [#/volume] correc terry for nucleated erythrocytes in Blood by Automated counon 09-15-2023 WBC corrected for nucl RBC Auto (Bld) [#/Vol] 6.4 x10 3.5-10.5 [facility] Lymphocytes Auto (Bld) [#/Vo l]on 09-15-2023 Lymphocytes (Bld) [#/Vol] 2.2 x10 1.3-2.9 [facility] Lymphocytes/100 WBC Auto (Bl d)on 09-15-2023 Lymphocytes/100 WBC (Bld) 34 % 14-48 [facility] MCH Auto (RBC) [Entitic mass ]on 09-15-2023 MCH (RBC) [Entitic mass] 29 pg 24-34 [facility] MCHC Auto (RBC) [Mass/Vol]on 09-15-2023 MCHC (RBC) [Mass/Vol] 34 g/dL 26-37 [facility] MCV Auto (RBC) [Entitic vol] on 09-15-2023 MCV (RBC) [Entitic vol] 87 fL 81-100 [facility] Monocytes Auto (Bld) [#/Vol] on 09-15-2023 Monocytes (Bld) [#/Vol] 0.4 x10 0.0-0.8 [facility] Monocytes/100 WBC Auto (Bld) on 09-15-2023 Monocytes/100 WBC (Bld) 6 % 1-12 [facility] Neutrophils Auto (Bld) [#/Vo l]on 09-15-2023 Neutrophils (Bld) [#/Vol] 3.7 x10 1.5-9.2 [facility] Neutrophils/100 WBC Auto (Bl d)on 09-15-2023 Neutrophils/100 WBC (Bld) 57 % 44-88 [facility] No Panel Informationon 09-14 Add Manual Differential Auto Auto [facility] Eosinophils # (Auto) 0.2 x10 0.0-0.4 [facility] Platelet mean volume Auto (B ld) [Entitic vol]on 09-15-2023 Platelet mean volume (Bld) [Entitic vol] 6.7 fL 6.3-10.2 [facility] Platelets Auto (Bld) [#/Vol] on 09-15-2023 Platelets (Bld) [#/Vol] 179 x10 138-427 [facility] RBC Auto (Bld) [#/Vol]on RBC (Bld) [#/Vol] 4.76 x10 3.70-5.30 [facility] Follitropin [Units/volume] i n Serum or PlasmaOrdered By: LEOBARDO BARROSO on 06-23-2022 Follitropin Qn 6.2 m[IU]/mL [facility] Comment on above: FEMALE NORMALS (DELROY ENOPAUSE) MID-FOLLICULAR PHASE: 3.9-8.8 mIU/mL MID-CYCLE PEAK: 4.5-22.5 mIU/mL MID-LUTEAL PHASE: 1.8-5.1 mIU/mLFEMALE NORMALS (POSTMENOPAUSE): 16.7-113.6 mIU/mLMALE NORMALS: 1.3-19.3 mIU/mL Prolactin [Mass/volume] in S betty or PlasmaOrdered By: LEOBARDO BARROSO on 06-23-2022 Prolactin [Mass/Vol] 7.58 ng/mL 3.34-26.[address] [facility] [address] biopsyOrdered By: Lisha Ford on 06-16-2022 Transferrin [Mass/Vol] 393 mg/dL 180-380 [facility] Iron [Mass/volume] in Serum or PlasmaOrdered By: Amanda Ford on 06-16-2022 Iron [Mass/Vol] 34 ug/dL 40-150 [facility] Iron binding capacity [Mass/ volume] in Serum or PlasmaOrdered By: Amanda Ford on 06-16-2022 Iron binding capacity [Mass/Vol] 550 ug/dL 255-450 [facility] Iron saturation [Mass Fracti on] in Serum or PlasmaOrdered By: Amanda Ford on 06-16-2022 Iron saturation [Mass fraction] 6.2 % 20-50 [facility] Anisocytosis LM Ql (Bld)Orde red By: FarhadCalvilloam on 06-11-2022 Anisocytosis Ql (Bld) Marked [facility] Basophils Auto (Bld) [#/Vol] Ordered By: Farhad Lashonda on 06-11-2022 Basophils (Bld) [#/Vol] N/A [facility] Basophils/100 WBC Auto (Bld) Ordered By: Farhad Lashonda on 06-11-2022 Basophils/100 WBC (Bld) N/A [facility] Basophils/100 WBC Manual cnt (Bld)Ordered By: Farhad Lashonda on 06-11-2022 Basophils/100 WBC (Bld) 1 % 0-2 [facility] Eosinophils Auto (Bld) [#/Vo l]Ordered By: Farhad Lashonda on 06-11-2022 Eosinophils (Bld) [#/Vol] N/A [facility] Eosinophils/100 WBC Auto (Bl d)Ordered By: Farhad Lashonda on 06-11-2022 Eosinophils/100 WBC (Bld) N/A [facility] Eosinophils/100 WBC Manual c nt (Bld)Ordered By: Farhad Lashonda on 06-11-2022 Eosinophils/100 WBC (Bld) 7 % 1-3 [facility] Erythrocyte distribution wid th Auto (RBC) [Ratio]Ordered By: Farhad Lashonda on 06-11-2022 Erythrocyte distribution width (RBC) [Ratio] 26.1 % 11.9-15.3 [facility] Hematocrit Auto (Bld) [Volum e fraction]Ordered By: Farhad Lashonda on 06-11-2022 Hematocrit (Bld) [Volume fraction] 25.7 % 34.0-46.4 [facility] Hemoglobin [Mass/volume] in BloodOrdered By: Farhad Gallego on 06-11-2022 Hemoglobin (Bld) [Mass/Vol] 8.0 g/dL 11.8-15.4 [facility] Hypochromia LM Ql (Bld)Order ed By: Farhad Gallego on 06-11-2022 Hypochromia Ql (Bld) Moderate [facility] Leukocytes [#/volume] correc terry for nucleated erythrocytes in Blood by Automated counOrdered By: Farhad Gallego on 06-11-2022 WBC corrected for nucl RBC Auto (Bld) [#/Vol] 5.0 10*3/uL 3.8-11.6 [facility] Lymphocytes Auto (Bld) [#/Vo l]Ordered By: Farhad Gallego on 06-11-2022 Lymphocytes (Bld) [#/Vol] N/A [facility] Lymphocytes/100 WBC Auto (Bl d)Ordered By: Farhad Gallego on 06-11-2022 Lymphocytes/100 WBC (Bld) N/A [facility] Lymphocytes/100 WBC Manual c nt (Bld)Ordered By: Farhad Gallego on 06-11-2022 Lymphocytes/100 WBC (Bld) 56 % 18-42 [facility] MCH Auto (RBC) [Entitic mass ]Ordered By: Farhad Gallego on 06-11-2022 MCH (RBC) [Entitic mass] 21.1 pg 24.7-34.3 [facility] MCHC Auto (RBC) [Mass/Vol]Or dered By: Farhad Gallego on 06-11-2022 MCHC (RBC) [Mass/Vol] 31.2 g/dL 32.0-35.0 [facility] MCV Auto (RBC) [Entitic vol] Ordered By: Farhad Gallego on 06-11-2022 MCV (RBC) [Entitic vol] 67.6 fL 80-100 [facility] Microcytes LM Ql (Bld)Ordere d By: Farhad Gallego on 06-11-2022 Microcytes Ql (Bld) [facility]ed [facility] Monocytes Auto (Bld) [#/Vol] Ordered By: Farhad Gallego on 06-11-2022 Monocytes (Bld) [#/Vol] N/A [facility] Monocytes/100 WBC Auto (Bld) Ordered By: Farhad Jasonam on 06-11-2022 Monocytes/100 WBC (Bld) N/A [facility] Monocytes/100 WBC Manual cnt (Bld)Ordered By: Farhad Lashonda on 06-11-2022 Monocytes/100 WBC (Bld) 5 % 2-11 [facility] Neutrophils Auto (Bld) [#/Vo l]Ordered By: Farhad Lashonda on 06-11-2022 Neutrophils (Bld) [#/Vol] N/A [facility] Neutrophils/100 WBC Auto (Bl d)Ordered By: Farhad Lashonda on 06-11-2022 Neutrophils/100 WBC (Bld) N/A [facility] Nucleated erythrocytes [Pres ence] in Blood by Automated countOrdered By: Farhad Jasonam on 06-11-2022 Nucleated RBC Auto Ql (Bld) N/A [facility] Platelet adequacy [Presence] in Blood by Light microscopyOrdered By: FarhadCalvilloam on 06-11-2022 Platelets LM Ql (Bld) Normal Normal [facility] Platelet mean volume Auto (B ld) [Entitic vol]Ordered By: Farhad Lashonda on 06-11-2022 Platelet mean volume (Bld) [Entitic vol] 8.2 fL 6.3-10.7 [facility] Platelet morphology finding [Identifier] in BloodOrdered By: FarhadCalvilloam on 06-11-2022 Platelet morphology finding Nom (Bld) Normal Normal [facility] Platelets Auto (Bld) [#/Vol] Ordered By: Farhad Lashonda on 06-11-2022 Platelets (Bld) [#/Vol] 165 10*3/uL 150-450 [facility] Polychromasia [Presence] in Blood by Light microscopyOrdered By: Farhad Lashonda on 06-11-2022 Polychromasia LM Ql (Bld) Marked [facility] RBC Auto (Bld) [#/Vol]Ordere d By: Farhad Lashonda on 06-11-2022 RBC (Bld) [#/Vol] 3.80 10*6/uL 3.60-5.00 [facility] RBC morphologyOrdered By: An scarlet Gallego on 06-11-2022 RBC morphology finding Nom (Bld) N/A [facility] Segmented neutrophils/100 WB C Manual cnt (Bld)Ordered By: Farhad Gallego on 06-11-2022 Segmented neutrophils/100 WBC (Bld) 32 % 50-70 [facility] WBC Auto (Bld) [#/Vol]Ordere d By: Farhad Gallego on 06-11-2022 WBC (Bld) [#/Vol] 5.0 10*3/uL 3.8-11.6 [facility] Activated partial thrombopla stin time (aPTT) in platelet poor plasma by coagulation aOrdered By: Jean Jett on 06-10-2022 aPTT Coag (PPP) [Time] 29.8 s 25.1-36.5 [facility] Anisocytosis LM Ql (Bld)Orde red By: Jean Jett on 06-10-2022 Anisocytosis Ql (Bld) Marked [facility] Basophils Auto (Bld) [#/Vol] Ordered By: Jean Jett on 06-10-2022 Basophils (Bld) [#/Vol] 0.1 10*3/uL 0.0-0.2 [facility] Basophils/100 WBC Auto (Bld) Ordered By: Jean Jett on 06-10-2022 Basophils/100 WBC (Bld) 1.8 % . [facility] Bilirubin Test strip Ql (U)O rdered By: Jean Jett on 06-10-2022 Bilirubin Ql (U) Negative Negative [facility] CT biopsyOrdered By: Jean Jett on 06-10-2022 Transferrin [Mass/Vol] 380 mg/dL 180-380 [facility] Calcium [Mass/volume] in Ser um or PlasmaOrdered By: Jean Jett on 06-10-2022 Calcium [Mass/Vol] 8.6 mg/dL 8.2-10.2 [facility] Carbon dioxide, total [Moles /volume] in Serum or PlasmaOrdered By: Jean Jett on 02-23-2023 CO2 [Moles/Vol] 23.3 mmol/L 22.0-30.0 [facility] Chloride [Moles/volume] in S betty or PlasmaOrdered By: Jean Jett on 06-10-2022 Chloride [Moles/Vol] 106 mmol/L 95-114 [facility] Color Auto (U)Ordered By: Luis Fernando Jett on 06-10-2022 Color (U) Yellow Yellow [facility] Creatine kinase [Enzymatic a ctivity/volume] in Serum or PlasmaOrdered By: Jean Jett on 06-10-2022 CK [Catalytic activity/Vol] 100 U/L 22-269 [facility] Creatinine and Glomerular fi ltration rate.predicted panel (S/P/Bld)Ordered By: Jean Jett on 06-10-2022 Creatinine [Mass/Vol] 0.71 mg/dL 0.44-1.03 [facility] Eosinophils Auto (Bld) [#/Vo l]Ordered By: Jean Jett on 06-10-2022 Eosinophils (Bld) [#/Vol] 0.3 10*3/uL 0.0-0.45 [facility] Eosinophils/100 WBC Auto (Bl d)Ordered By: Jean Jett on 06-10-2022 Eosinophils/100 WBC (Bld) 5.0 % . [facility] Erythrocyte distribution wid th Auto (RBC) [Ratio]Ordered By: Jean Jett on 06-10-2022 Erythrocyte distribution width (RBC) [Ratio] 24.6 % 11.9-15.3 [facility] Estimated glomerular filtrat ion rate (GFR) non- AmericanOrdered By: Jean Jett on 06-10-2022 GFR/1.73 sq M.predicted among non-blacks MDRD (S/P/Bld) [Vol rate/Area] > 60 mL/Min [facility] Fecal occult blood detection by immunochemistryOrdered By: Jean Jett on 06-10-2022 Hemoglobin.gastrointes tinal Ql (Stl) [facility] Glucose [Mass/volume] in Ser um or PlasmaOrdered By: Jean Jett on 06-10-2022 Glucose [Mass/Vol] 94 mg/dL 70-100 [facility] Comment on above: ADA recommended refe rence rangeRandom Glucose Reference Range is dependent on time and content of last meal. Glucose of more than 200 mg/dL in a nonstressed, ambulatory subject supports the diagnosis of Diabetes Mellitus. HCG ( test) IA.rapi d Ql (U)Ordered By: Jean Jett on 06-10-2022 HCG ( test) Ql (U) Negative [facility] Hematocrit Auto (Bld) [Volum e fraction]Ordered By: Jean Jett on 06-10-2022 Hematocrit (Bld) [Volume fraction] 23.8 % 34.0-46.4 [facility] Hemoglobin [Mass/volume] in BloodOrdered By: Jean Jett on 06-10-2022 Hemoglobin (Bld) [Mass/Vol] 7.3 g/dL 11.8-15.4 [facility] Hypochromia LM Ql (Bld)Order ed By: Jean Jett on 06-10-2022 Hypochromia Ql (Bld) Marked [facility] Iron [Mass/volume] in Serum or PlasmaOrdered By: Jean Jett on 06-10-2022 Iron [Mass/Vol] 25 ug/dL 40-150 [facility] Iron binding capacity [Mass/ volume] in Serum or PlasmaOrdered By: Jean Jett on 06-10-2022 Iron binding capacity [Mass/Vol] 532 ug/dL 255-450 [facility] Iron saturation [Mass Fracti on] in Serum or PlasmaOrdered By: Jean Jett on 06-10-2022 Iron saturation [Mass fraction] 4.7 % 20-50 [facility] Ketones Auto test strip (U) [Mass/Vol]Ordered By: Jean Jett on 06-10-2022 Ketones (U) [Mass/Vol] Negative [facility] - Chemistry and C hemistry - challengeOrdered By: Jean Jett on 06-10-2022 Magnesium [Mass/Vol] 1.9 mg/dL 1.6-2.6 [facility] Natriuretic peptide B (Bld) [Mass/Vol] 23.0 pg/mL 5-100 [facility] Laboratory - CoagulationOrde red By: Jean Jett on 06-10-2022 PT Coag (PPP) [Time] 12.9 s 9.0-12.9 [facility] Leukocytes [#/volume] correc terry for nucleated erythrocytes in Blood by Automated counOrdered By: Jean Jett on 06-10-2022 WBC corrected for nucl RBC Auto (Bld) [#/Vol] 5.3 10*3/uL 3.8-11.6 [facility] Lymphocytes Auto (Bld) [#/Vo l]Ordered By: Jean Jett on 06-10-2022 Lymphocytes (Bld) [#/Vol] 2.2 10*3/uL 1.00-4.8 [facility] Lymphocytes/100 WBC Auto (Bl d)Ordered By: Jean Jett on 06-10-2022 Lymphocytes/100 WBC (Bld) 41.3 % . [facility] MCH Auto (RBC) [Entitic mass ]Ordered By: Jean Jett on 06-10-2022 MCH (RBC) [Entitic mass] 19.7 pg 24.7-34.3 [facility] MCHC Auto (RBC) [Mass/Vol]Or dered By: Jean Jett on 06-10-2022 MCHC (RBC) [Mass/Vol] 30.6 g/dL 32.0-35.0 [facility] MCV Auto (RBC) [Entitic vol] Ordered By: Jean Jett on 06-10-2022 MCV (RBC) [Entitic vol] 64.5 fL 80-100 [facility] Microcytes LM Ql (Bld)Ordere d By: Jean Jett on 06-10-2022 Microcytes Ql (Bld) Marked [facility] Monocyte distribution width [Entitic volume] in Blood by AutomatedOrdered By: Jean Jett on 06-10-2022 Monocyte distribution width Auto (Bld) [Entitic vol] 17.54 % 0.00-20.00 [facility] Monocytes Auto (Bld) [#/Vol] Ordered By: Jean Jett on 06-10-2022 Monocytes (Bld) [#/Vol] 0.4 10*3/uL 0.0-0.8 [facility] Monocytes/100 WBC Auto (Bld) Ordered By: Jean Jett on 06-10-2022 Monocytes/100 WBC (Bld) 6.8 % . [facility] Neutrophils Auto (Bld) [#/Vo l]Ordered By: Jean Jett on 06-10-2022 Neutrophils (Bld) [#/Vol] 2.4 10*3/uL 1.8-7.7 [facility] Neutrophils/100 WBC Auto (Bl d)Ordered By: Jean Jett on 06-10-2022 Neutrophils/100 WBC (Bld) 45.1 % . [facility] Nitrite Test strip Ql (U)Ord ered By: Jean Jett on 06-10-2022 Nitrite Ql (U) Negative Negative [facility] No Panel InformationOrdered By: Jean Jett on 06-10-2022 Estimated GFR () > 60 mL/Min [facility] Comment on above: GFR estimated refere nce range: According to KDOQI guidelines, <60 ml/min/1.73m2 is sufficient to diagnose a patient with chronic kidney disease. Pharmacy Creatinine Clearance (Chem 149.49 [facility] Nucleated erythrocytes [Pres ence] in Blood by Automated countOrdered By: Jean Jett on 06-10-2022 Nucleated RBC Auto Ql (Bld) 0.1 /100{WBC} 0-0.5 [facility] Ovalocyte detectionOrdered B y: Jean Jett on 06-10-2022 Ovalocytes LM Ql (Bld) Slight [facility] Platelet adequacy [Presence] in Blood by Light microscopyOrdered By: Jean Jett on 06-10-2022 Platelets LM Ql (Bld) Normal Normal [facility] Platelet mean volume Auto (B ld) [Entitic vol]Ordered By: Jean Jett on 06-10-2022 Platelet mean volume (Bld) [Entitic vol] 8.3 fL 6.3-10.7 [facility] Platelet morphology finding [Identifier] in BloodOrdered By: Jean Jett on 06-10-2022 Platelet morphology finding Nom (Bld) Normal Normal [facility] Platelet poor plasma interna tional normalized ratio (INR) by coagulation assay (relatOrdered By: Jean Jett on 06-10-2022 INR Coag (PPP) [Relative time] 1.1 {INR} [facility] Comment on above: INR Therapeutic Rang e [...] 06-10-2022 Platelets (Bld) [#/Vol] 202 10*3/uL 150-450 [facility] Poikilocytosis [Presence] in Blood by Light microscopyOrdered By: Jean Jett on 06-10-2022 Poikilocytosis LM Ql (Bld) [facility] Polychromasia [Presence] in Blood by Light microscopyOrdered By: Jean Jett on 06-10-2022 Polychromasia LM Ql (Bld) [facility] Potassium [Moles/volume] in Serum or PlasmaOrdered By: Jean Jett on 06-10-2022 Potassium [Moles/Vol] 4.1 mmol/L 3.5-5.1 [facility] Protein Auto test strip (U) [Mass/Vol]Ordered By: Jean Jett on 06-10-2022 Protein (U) [Mass/Vol] Negative Negative [facility] RBC Auto (Bld) [#/Vol]Ordere d By: Jean Jett on 06-10-2022 RBC (Bld) [#/Vol] 3.69 10*6/uL 3.60-5.00 [facility] RBC morphologyOrdered By: Luis Fernando Jett on 06-10-2022 RBC morphology finding Nom (Bld) N/A [facility] Serum or plasma anion gap de terminationOrdered By: Jean Jett on 06-10-2022 Anion gap [Moles/Vol] 10.8 mmol/L 6.0-15.0 [facility] Sodium [Moles/volume] in Ser um or PlasmaOrdered By: Jean Jett on 06-10-2022 Sodium [Moles/Vol] 136 mmol/L 136-146 [facility] Specific gravity Auto test s trip (U) [Rel density]Ordered By: Jean Jett on 06-10-2022 Specific gravity (U) [Rel density] 1.010 1.001-1.030 [facility] Target cellsOrdered By: Mackenzie Jett on 06-10-2022 Target cells LM Ql (Bld) Slight [facility] Teardrop cell detectionOrder ed By: Jean Jett on 06-10-2022 Dacrocytes LM Ql (Bld) Slight [facility] Troponin I.cardiac [Mass/vol ume] in Serum or Plasma by High sensitivity methodOrdered By: Jean Jett on 06-10-2022 Troponin I.cardiac High sensitivity method [Mass/Vol] < 3 pg/mL 0-15 [facility] Urea nitrogen [Mass/volume] in Serum or PlasmaOrdered By: Jean Jett on 06-10-2022 Urea nitrogen [Mass/Vol] 9 mg/dL 01-08 [facility] Urine clarity by refractomet ry automatedOrdered By: Jean Jett on 06-10-2022 Clarity Refractometry automated (U) Clear Clear [facility] Urine glucose measurement by automated test strip (mass/volume)Ordered By: Jean Jett on 06-10-2022 Glucose Auto test strip (U) [Mass/Vol] Normal mg/dL Normal [facility] Urine hemoglobin detection b y automated test stripOrdered By: Jean Jett on 06-10-2022 Hemoglobin Auto test strip Ql (U) Negative Negative [facility] Urine leukocyte esterase det ection by automated test stripOrdered By: Jean Jett on 06-10-2022 Leukocyte esterase Auto test strip Ql (U) Negative Negative [facility] Urobilinogen Auto test strip (U) [Mass/Vol]Ordered By: Jean Jett on 06-10-2022 Urobilinogen (U) [Mass/Vol] Normal mg/dL Normal [facility] WBC Auto (Bld) [#/Vol]Ordere d By: Jean Jett on 06-10-2022 WBC (Bld) [#/Vol] 5.3 10*3/uL 3.8-11.6 [facility] pH Auto test strip (U)Ordere d By: Jean Jett on 06-10-2022 pH (U) 5.5 [pH] 5.0-9.0 [facility] Alkaline phosphatase [Enzyma tic activity/volume] in Serum or PlasmaOrdered By: Julieta Jefferson on 06-09-2022 ALP [Catalytic activity/Vol] 39 U/L 32-92 [facility] Anisocytosis LM Ql (Bld)Orde red By: Julieta Jefferson on 06-09-2022 Anisocytosis Ql (Bld) Marked [facility] Aspartate aminotransferase [ Enzymatic activity/volume] in Serum or PlasmaOrdered By: Julieta Jefferson on 06-09-2022 AST [Catalytic activity/Vol] 15 U/L 10-42 [facility] Basophils Auto (Bld) [#/Vol] Ordered By: Julieta Jefferson on 06-09-2022 Basophils (Bld) [#/Vol] 0.1 10*3/uL 0.0-0.2 [facility] Basophils/100 WBC Auto (Bld) Ordered By: Julieta Jefferson on 06-09-2022 Basophils/100 WBC (Bld) 1.4 % . [facility] Body fluid albumin measureme nt (mass/volume)Ordered By: Julieta Jefferson on 06-09-2022 Albumin (Body fld) [Mass/Vol] 4.1 g/dL 3.2-5.5 [facility] Calcium [Mass/volume] in Ser um or PlasmaOrdered By: Julieta Jefferson on 06-09-2022 Calcium [Mass/Vol] 9.0 mg/dL 8.2-10.2 [facility] Carbon dioxide, total [Moles /volume] in Serum or PlasmaOrdered By: Julieta Jefferson on 06-09-2022 CO2 [Moles/Vol] 23.3 mmol/L 22.0-30.0 [facility] Cholesterol [Mass/volume] in Serum or PlasmaOrdered By: Julieta Jefferson on 06-09-2022 Cholesterol [Mass/Vol] 137 mg/dL 140-200 [facility] Comment on above: Chol less than 200 m g/dl low riskChol 201-239 mg/dl borderline riskChol 240 mg/dl and greater high risk Cholesterol in LDL Calc [Mas s/Vol]Ordered By: Julieta Jefferson on 06-09-2022 Cholesterol in LDL [Mass/Vol] 72 mg/dL 0-100 [facility] Comment on above: LDL ATP III CLASSIFI CATIONLDL less than 100 mg/dL OptimalLDL 100-129 mg/dL Near or above optimalLDL 130-159 mg/dL Borderline highLDL 160-189 mg/dL HighLDL greater than 189 mg/dL Very high Cholesterol in VLDL Calc [Ma ss/Vol]Ordered By: Julieta Jefferson on 06-09-2022 Cholesterol in VLDL [Mass/Vol] 9 mg/dL [facility] Creatinine and Glomerular fi ltration rate.predicted panel (S/P/Bld)Ordered By: Julieta Jefferson on 06-09-2022 Creatinine [Mass/Vol] 0.59 mg/dL 0.44-1.03 [facility] Eosinophils Auto (Bld) [#/Vo l]Ordered By: Julieta Jefferson on 06-09-2022 Eosinophils (Bld) [#/Vol] 0.3 10*3/uL 0.0-0.45 [facility] Eosinophils/100 WBC Auto (Bl d)Ordered By: Julieta Jefferson on 06-09-2022 Eosinophils/100 WBC (Bld) 6.8 % . [facility] Erythrocyte distribution wid th Auto (RBC) [Ratio]Ordered By: Julieta Jefferson on 06-09-2022 Erythrocyte distribution width (RBC) [Ratio] 24.5 % 11.9-15.3 [facility] Estimated glomerular filtrat ion rate (GFR) non- AmericanOrdered By: Julieta Jefferson on 06-09-2022 GFR/1.73 sq M.predicted among non-blacks MDRD (S/P/Bld) [Vol rate/Area] > 60 mL/Min [facility] Globulin Calc (S) [Mass/Vol] Ordered By: Julieta Jefferson on 06-09-2022 Globulin (S) [Mass/Vol] 2.3 g/dL [facility] Glucose mean value [Mass/vol ume] in Blood Estimated from glycated hemoglobinOrdered By: Julieta Jefferson on 06-09-2022 Average glucose Estimated from glycated hemoglobin (Bld) [Mass/Vol] 97 mg/dL [facility] Hematocrit Auto (Bld) [Volum e fraction]Ordered By: Julieta Jefferson on 06-09-2022 Hematocrit (Bld) [Volume fraction] 26.0 % 34.0-46.4 [facility] Hemoglobin A1c percentageOrd ered By: Julieta Jefferson on 06-09-2022 HbA1c (Bld) [Mass fraction] 5.0 % 4.3-5.6 [facility] Comment on above: Increased risk for d iabetes: 5.7 - 6.4diabetes: >6.4glycemic control for adults with diabetes: <7.0 Hemoglobin [Mass/volume] in BloodOrdered By: Julieta Jefferson on 06-09-2022 Hemoglobin (Bld) [Mass/Vol] 7.8 g/dL 11.8-15.4 [facility] Hypochromia LM Ql (Bld)Order ed By: Julieta Jefferson on 06-09-2022 Hypochromia Ql (Bld) Moderate [facility] Leukocytes [#/volume] correc terry for nucleated erythrocytes in Blood by Automated counOrdered By: Julieta Jefferson on 06-09-2022 WBC corrected for nucl RBC Auto (Bld) [#/Vol] 4.6 10*3/uL 3.8-11.6 [facility] Lymphocytes Auto (Bld) [#/Vo l]Ordered By: Julieta Jefferson on 06-09-2022 Lymphocytes (Bld) [#/Vol] 2.0 10*3/uL 1.00-4.8 [facility] Lymphocytes/100 WBC Auto (Bl d)Ordered By: Julieta Jefferson on 06-09-2022 Lymphocytes/100 WBC (Bld) 44.2 % . [facility] MCH Auto (RBC) [Entitic mass ]Ordered By: Julieta Jefferson on 06-09-2022 MCH (RBC) [Entitic mass] 19.7 pg 24.7-34.3 [facility] MCHC Auto (RBC) [Mass/Vol]Or dered By: Julieta Jefferson on 06-09-2022 MCHC (RBC) [Mass/Vol] 30.2 g/dL 32.0-35.0 [facility] MCV Auto (RBC) [Entitic vol] Ordered By: Julieta Jefferson on 06-09-2022 MCV (RBC) [Entitic vol] 65.3 fL 80-100 [facility] Microcytes LM Ql (Bld)Ordere d By: Julieta Jefferson on 06-09-2022 Microcytes Ql (Bld) Marked [facility] Monocytes Auto (Bld) [#/Vol] Ordered By: Julieta Jefferson on 06-09-2022 Monocytes (Bld) [#/Vol] 0.4 10*3/uL 0.0-0.8 [facility] Monocytes/100 WBC Auto (Bld) Ordered By: Julieta Jefferson on 06-09-2022 Monocytes/100 WBC (Bld) 8.9 % . [facility] Neutrophils Auto (Bld) [#/Vo l]Ordered By: Julieta Jefferson on 06-09-2022 Neutrophils (Bld) [#/Vol] 1.8 10*3/uL 1.8-7.7 [facility] Neutrophils/100 WBC Auto (Bl d)Ordered By: Julieta Jefferson on 06-09-2022 Neutrophils/100 WBC (Bld) 38.7 % . [facility] No Panel InformationOrdered By: Julieta Jefferson on 06-09-2022 Estimated GFR () > 60 mL/Min [facility] Comment on above: GFR estimated refere nce range: According to KDOQI guidelines, <60 ml/min/1.73m2 is sufficient to diagnose a patient with chronic kidney disease. Pharmacy Creatinine Clearance (Chem N/A [facility] Nucleated erythrocytes [Pres ence] in Blood by Automated countOrdered By: Julieta Jefferson on 06-09-2022 Nucleated RBC Auto Ql (Bld) 0.1 /100{WBC} 0-0.5 [facility] Platelet adequacy [Presence] in Blood by Light microscopyOrdered By: Julieta Jefferson on 06-09-2022 Platelets LM Ql (Bld) Normal Normal [facility] Platelet mean volume Auto (B ld) [Entitic vol]Ordered By: Julieta Jefferson on 06-09-2022 Platelet mean volume (Bld) [Entitic vol] 8.2 fL 6.3-10.7 [facility] Platelet morphology finding [Identifier] in BloodOrdered By: Julieta Jefferson on 06-09-2022 Platelet morphology finding Nom (Bld) Normal Normal [facility] Platelets Auto (Bld) [#/Vol] Ordered By: Julieta Jefferson on 02-22-2023 Platelets (Bld) [#/Vol] 200 10*3/uL 150-450 [facility] Poikilocytosis [Presence] in Blood by Light microscopyOrdered By: Julieta Jefferson on 06-09-2022 Poikilocytosis LM Ql (Bld) Slight [facility] Polychromasia [Presence] in Blood by Light microscopyOrdered By: Julieta Jefferson on 06-09-2022 Polychromasia LM Ql (Bld) Moderate [facility] Protein [Mass/volume] in Ser um or PlasmaOrdered By: Julieta Jefferson on 06-09-2022 Protein [Mass/Vol] 6.4 g/dL 6.1-7.9 [facility] RBC Auto (Bld) [#/Vol]Ordere d By: Julieta Jefferson on 06-09-2022 RBC (Bld) [#/Vol] 3.97 10*6/uL 3.60-5.00 [facility] RBC morphologyOrdered By: Sanaz Jefferson on 06-09-2022 RBC morphology finding Nom (Bld) N/A [facility] Schistocytes [Presence] in B lood by Light microscopyOrdered By: Julitea Jefferson on 06-09-2022 Schistocytes LM Ql (Bld) Slight [facility] Serum or plasma alanine paredes otransferase measurement without P-5'-P (enzymatic activiOrdered By: Julieta Jefferson on 06-09-2022 ALT No additional P-5'-P [Catalytic activity/Vol] 14 U/L 10-60 [facility] Serum or plasma albumin/glob ulin mass ratioOrdered By: Julieta Jefferson on 06-09-2022 Albumin/Globulin [Mass ratio] 1.8 {ratio} [facility] Serum or plasma anion gap de terminationOrdered By: Julieta Jefferson on 06-09-2022 Anion gap [Moles/Vol] 11.5 mmol/L 6.0-15.0 [facility] Serum or plasma calcitriol m easurement (mass/volume)Ordered By: Julieta Jefferson on 06-09-2022 1,25-dihydroxyvitamin D3 [Mass/Vol] 60.5 pg/mL 24.8-81.5 [facility] Comment on above: Performed at: [address], [place] [id number] Director: Jon Horton MD, Phone: [phone] Serum or plasma chloride robel surement (moles/volume)Ordered By: Julieta Jefferson on 06-09-2022 Chloride [Moles/Vol] 106 mmol/L 95-114 [facility] Serum or plasma glucose kelly urement (mass/volume)Ordered By: Julieta Jefferson on 06-09-2022 Glucose [Mass/Vol] 78 mg/dL 70-100 [facility] Comment on above: ADA recommended refe rence rangeRandom Glucose Reference Range is dependent on time and content of last meal. Glucose of more than 200 mg/dL in a nonstressed, ambulatory subject supports the diagnosis of Diabetes Mellitus. Serum or plasma high density lipoprotein (HDL) cholesterol measurementOrdered By: Julieta Jefferson on 06-09-2022 Cholesterol in HDL [Mass/Vol] 56 mg/dL 35-85 [facility] Comment on above: HDL CHOL ATP-III CLA SSIFICATION Cardiovascular RiskHDL > or equal to 60 mg/dL LOWHDL < 40 mg/dL HIGH Serum or plasma potassium me asurement (moles/volume)Ordered By: Julieta Jefferson on 06-09-2022 Potassium [Moles/Vol] 3.8 mmol/L 3.5-5.1 [facility] Serum or plasma sodium measu rement (moles/volume)Ordered By: Julieta Jefferson on 06-09-2022 Sodium [Moles/Vol] 137 mmol/L 136-146 [facility] Serum or plasma total biliru bin measurement (mass/volume)Ordered By: Julieta Jefferson on 06-09-2022 Bilirubin [Mass/Vol] 0.3 mg/dL 0.3-1.2 [facility] Serum or plasma total choles terol/high density lipoprotein (HDL) cholesterol mass ratOrdered By: Julieta Jefferson on 06-09-2022 Cholesterol.total/Chol esterol in HDL [Mass ratio] 2.4 {ratio} <5.0 [facility] TSH DL <= 0.005 mIU/L QnOrde red By: Julieta Jefferson on 06-09-2022 TSH Qn 4.10 m[IU]/L 0.45-5.33 [facility] Teardrop cell detectionOrder ed By: Julieta Jefferson on 06-09-2022 Dacrocytes LM Ql (Bld) Slight [facility] Triglyceride [Mass/volume] i n Serum or PlasmaOrdered By: Julieta Jefferson on 06-09-2022 Triglyceride [Mass/Vol] 45 mg/dL 35-149 [facility] Comment on above: TRIG ATP III CLASSIF ICATIONTRIG less than 150 mg/dL NormalTRIG 150-199 mg/dL Borderline highTRIG 200-500 mg/dL High TRIG greater than 500 mg/dL Very highStandard traceable to the Center for Disease Conrtrol and Prevention (CDC) test method. Urea nitrogen [Mass/volume] in Serum or PlasmaOrdered By: Julieta Jefferson on 06-09-2022 Urea nitrogen [Mass/Vol] 6 mg/dL 01-08 [facility] WBC Auto (Bld) [#/Vol]Ordere d By: Julieta Jefferson on 06-09-2022 WBC (Bld) [#/Vol] 4.6 10*3/uL 3.8-11.6 [facility] Urine 10 SGon 04-21-2022 Albumin DL <= 20 mg/L (U) [Mass/Vol] Negative W-21 Other pH (U) 7.0 [pH] W-21 Other Urine 10 SG Negative W-21 Other Urine 10 SG 1.020 W-21 Other Urine 10 SG large W-21 Other Urine Cultureon 04-21-2022 Bacteria identified Cx Nom (U) W-21 Other Urine culture routineOrdered By: Amanda Ford on 04-21-2022 Bacteria identified Cx Nom (U) 2 Days [facility] Activated partial thrombopla stin time (aPTT) in platelet poor plasma by coagulation aOrdered By: Phu Hdz on 04-10-2022 aPTT Coag (PPP) [Time] 30.4 s 25.1-36.5 [facility] Automated erythrocytes count in urine sediment (number/area)Ordered By: Jean Jett on 04-10-2022 RBC Auto (Urine sed) [#/Area] Innumerable [HPF] 0-4 [facility] Automated leukocytes count i n urine sediment (number/area)Ordered By: Jean Jett on 04-10-2022 WBC Auto (Urine sed) [#/Area] 3-4 [HPF] 0-4 [facility] Automated urine sediment mukesh cium oxalate crystal count by microscopy (number/high powOrdered By: Jean Jett on 04-10-2022 Calcium oxalate crystals LM.HPF (Urine sed) [#/Area] 1+ [HPF] [facility] Basophils Auto (Bld) [#/Vol] Ordered By: Jean Jett on 04-10-2022 Basophils (Bld) [#/Vol] 0.0 10*3/uL 0.0-0.2 [facility] Basophils/100 WBC Auto (Bld) Ordered By: Jean Jett on 04-10-2022 Basophils/100 WBC (Bld) 0.5 % . [facility] Bilirubin Test strip Ql (U)O rdered By: Jean Jett on 04-10-2022 Bilirubin Ql (U) 1+ Negative [facility] Casts typing in urine sedime nt by light microscopyOrdered By: Jean Jett on 04-10-2022 Casts LM Nom (Urine sed) None seen [LPF] None Seen [facility] Color Auto (U)Ordered By: Luis Fernando Jett on 04-10-2022 Color (U) Red Yellow [facility] Creatinine and Glomerular fi ltration rate.predicted panel (S/P/Bld)Ordered By: Jean Jett on 04-10-2022 Creatinine [Mass/Vol] 0.68 mg/dL 0.44-1.03 [facility] Eosinophils Auto (Bld) [#/Vo l]Ordered By: Jean Jett on 04-10-2022 Eosinophils (Bld) [#/Vol] 0.2 10*3/uL 0.0-0.45 [facility] Eosinophils/100 WBC Auto (Bl d)Ordered By: Jean Jett on 04-10-2022 Eosinophils/100 WBC (Bld) 2.1 % . [facility] Erythrocyte distribution wid th Auto (RBC) [Ratio]Ordered By: Jean Jett on 04-10-2022 Erythrocyte distribution width (RBC) [Ratio] 14.3 % 11.9-15.3 [facility] Estimated glomerular filtrat ion rate (GFR) non- AmericanOrdered By: Jean Jett on 04-10-2022 GFR/1.73 sq M.predicted among non-blacks MDRD (S/P/Bld) [Vol rate/Area] > 60 mL/Min [facility] HCG ( test) IA.rapi d Ql (U)Ordered By: Jean Jett on 04-10-2022 HCG ( test) Ql (U) Negative [facility] Hematocrit Auto (Bld) [Volum e fraction]Ordered By: Jean Jett on 04-10-2022 Hematocrit (Bld) [Volume fraction] 29.4 % 34.0-46.4 [facility] Hemoglobin [Mass/volume] in BloodOrdered By: Jean Jett on 04-10-2022 Hemoglobin (Bld) [Mass/Vol] 9.9 g/dL 11.8-15.4 [facility] Ketones Auto test strip (U) [Mass/Vol]Ordered By: Jean Jett on 04-10-2022 Ketones (U) [Mass/Vol] Negative [facility] - CoagulationOrde red By: Phu Hdz on 04-10-2022 PT Coag (PPP) [Time] 12.4 s 9.0-12.9 [facility] - UrinalysisOrder ed By: Jean Jett on 04-10-2022 Hyaline casts LM Ql (Urine sed) None seen [LPF] 0-8 [facility] Leukocytes [#/volume] correc terry for nucleated erythrocytes in Blood by Automated counOrdered By: Jean Jett on 04-10-2022 WBC corrected for nucl RBC Auto (Bld) [#/Vol] 8.5 10*3/uL 3.8-11.6 [facility] Lymphocytes Auto (Bld) [#/Vo l]Ordered By: Jean Jett on 04-10-2022 Lymphocytes (Bld) [#/Vol] 2.1 10*3/uL 1.00-4.8 [facility] Lymphocytes/100 WBC Auto (Bl d)Ordered By: Jean Jett on 04-10-2022 Lymphocytes/100 WBC (Bld) 25.2 % . [facility] MCH Auto (RBC) [Entitic mass ]Ordered By: Jean Jett on 04-10-2022 MCH (RBC) [Entitic mass] 28.8 pg 24.7-34.3 [facility] MCHC Auto (RBC) [Mass/Vol]Or dered By: Jean Jett on 04-10-2022 MCHC (RBC) [Mass/Vol] 33.6 g/dL 32.0-35.0 [facility] MCV Auto (RBC) [Entitic vol] Ordered By: Jean Jett on 04-10-2022 MCV (RBC) [Entitic vol] 85.7 fL 80-100 [facility] Monocyte distribution width [Entitic volume] in Blood by AutomatedOrdered By: Jean Jett on 04-10-2022 Monocyte distribution width Auto (Bld) [Entitic vol] 14.20 % 0.00-20.00 [facility] Monocytes Auto (Bld) [#/Vol] Ordered By: Jean Jett on 04-10-2022 Monocytes (Bld) [#/Vol] 0.5 10*3/uL 0.0-0.8 [facility] Monocytes/100 WBC Auto (Bld) Ordered By: Jean Jett on 04-10-2022 Monocytes/100 WBC (Bld) 5.7 % . [facility] Neutrophils Auto (Bld) [#/Vo l]Ordered By: Jean Jett on 04-10-2022 Neutrophils (Bld) [#/Vol] 5.6 10*3/uL 1.8-7.7 [facility] Neutrophils/100 WBC Auto (Bl d)Ordered By: Jean Jett on 04-10-2022 Neutrophils/100 WBC (Bld) 66.5 % . [facility] Nitrite Test strip Ql (U)Ord ered By: Jean Jett on 04-10-2022 Nitrite Ql (U) Positive Negative [facility] No Panel InformationOrdered By: Jean Jett on 04-10-2022 Estimated GFR () > 60 mL/Min [facility] Comment on above: GFR estimated refere nce range: According to KDOQI guidelines, <60 ml/min/1.73m2 is sufficient to diagnose a patient with chronic kidney disease. Pharmacy Creatinine Clearance (Chem 152.39 [facility] Nucleated erythrocytes [Pres ence] in Blood by Automated countOrdered By: Jean Jett on 04-10-2022 Nucleated RBC Auto Ql (Bld) 0.0 /100{WBC} 0-0.5 [facility] Platelet mean volume Auto (B ld) [Entitic vol]Ordered By: Jean Jett on 04-10-2022 Platelet mean volume (Bld) [Entitic vol] 6.9 fL 6.3-10.7 [facility] Platelet poor plasma interna tional normalized ratio (INR) by coagulation assay (relatOrdered By: Phu Hdz on 04-10-2022 INR Coag (PPP) [Relative time] 1.1 {INR} [facility] Comment on above: INR Therapeutic Rang e [...] 04-10-2022 Platelets (Bld) [#/Vol] 263 10*3/uL 150-450 [facility] Protein Auto test strip (U) [Mass/Vol]Ordered By: Jena Jett on 04-10-2022 Protein (U) [Mass/Vol] 100 mg/dL Negative [facility] RBC Auto (Bld) [#/Vol]Ordere d By: Jean Jett on 04-10-2022 RBC (Bld) [#/Vol] 3.43 10*6/uL 3.60-5.00 [facility] Serum or plasma anion gap de terminationOrdered By: Jean Jett on 04-10-2022 Anion gap [Moles/Vol] 8.5 mmol/L 6.0-15.0 [facility] Serum or plasma calcium kelly urement (mass/volume)Ordered By: Jean Jett on 04-10-2022 Calcium [Mass/Vol] 8.6 mg/dL 8.2-10.2 [facility] Serum or plasma chloride robel surement (moles/volume)Ordered By: Jean Jett on 04-10-2022 Chloride [Moles/Vol] 106 mmol/L 95-114 [facility] Serum or plasma glucose kelly urement (mass/volume)Ordered By: Jean Jett on 04-10-2022 Glucose [Mass/Vol] 99 mg/dL 70-100 [facility] Comment on above: ADA recommended refe rence rangeRandom Glucose Reference Range is dependent on time and content of last meal. Glucose of more than 200 mg/dL in a nonstressed, ambulatory subject supports the diagnosis of Diabetes Mellitus. Serum or plasma potassium me asurement (moles/volume)Ordered By: Jean Jett on 04-10-2022 Potassium [Moles/Vol] 3.6 mmol/L 3.5-5.1 [facility] Serum or plasma sodium measu rement (moles/volume)Ordered By: Jean Jett on 04-10-2022 Sodium [Moles/Vol] 138 mmol/L 136-146 [facility] Serum or plasma total carbon dioxide measurement (moles/volume)Ordered By: Jean Jett on 04-10-2022 CO2 [Moles/Vol] 27.1 mmol/L 22.0-30.0 [facility] Serum or plasma urea nitroge n measurement (mass/volume)Ordered By: Jean Jett on 04-10-2022 Urea nitrogen [Mass/Vol] 5 mg/dL 9-23 [facility] Specific gravity Auto test s trip (U) [Rel density]Ordered By: Jean Jett on 04-10-2022 Specific gravity (U) [Rel density] 1.033 1.001-1.030 [facility] Squamous epithelial cells de tection in urine sediment by light microscopyOrdered By: Jean Jett on 04-10-2022 Epithelial cells.squamous LM Ql (Urine sed) 3-4 [HPF] 0-2 [facility] Urine bacteria detection by automated methodOrdered By: Jean Jett on 04-10-2022 Bacteria Auto Ql (U) None seen None Seen [facility] Urine clarity by refractomet ry automatedOrdered By: Jean Jett on 04-10-2022 Clarity Refractometry automated (U) Turbid Clear [facility] Urine culture routineOrdered By: Jean Jett on 04-10-2022 Bacteria identified Cx Nom (U) 2 Days [facility] Urine glucose measurement by automated test strip (mass/volume)Ordered By: Jean Jett on 04-10-2022 Glucose Auto test strip (U) [Mass/Vol] Normal mg/dL Normal [facility] Urine hemoglobin detection b y automated test stripOrdered By: Jean Jett on 04-10-2022 Hemoglobin Auto test strip Ql (U) 3+ Negative [facility] Urine leukocyte esterase det ection by automated test stripOrdered By: Jean Jett on 04-10-2022 Leukocyte esterase Auto test strip Ql (U) 2+ Negative [facility] Urine sediment crystal ident ification by light microscopyOrdered By: Jean Jett on 04-10-2022 Crystals LM Nom (Urine sed) None seen [HPF] [facility] Urobilinogen Auto test strip (U) [Mass/Vol]Ordered By: Jean Jett on 04-10-2022 Urobilinogen (U) [Mass/Vol] Normal mg/dL Normal [facility] WBC Auto (Bld) [#/Vol]Ordere d By: Jean Jett on 04-10-2022 WBC (Bld) [#/Vol] 8.5 10*3/uL 3.8-11.6 [facility] pH Auto test strip (U)Ordere d By: Jean Jett on 04-10-2022 pH (U) 5.5 [pH] 5.0-9.0 [facility] Basophils Auto (Bld) [#/Vol] Ordered By: PROVIDER TEMP on 04-08-2022 Basophils (Bld) [#/Vol] 0.0 10*3/uL 0.0-0.2 [facility] Basophils/100 WBC Auto (Bld) Ordered By: PROVIDER TEMP on 04-08-2022 Basophils/100 WBC (Bld) 0.4 % . [facility] Eosinophils Auto (Bld) [#/Vo l]Ordered By: PROVIDER TEMP on 04-08-2022 Eosinophils (Bld) [#/Vol] 0.4 10*3/uL 0.0-0.45 [facility] Eosinophils/100 WBC Auto (Bl d)Ordered By: PROVIDER TEMP on 04-08-2022 Eosinophils/100 WBC (Bld) 5.5 % . [facility] Erythrocyte distribution wid th Auto (RBC) [Ratio]Ordered By: PROVIDER TEMP on 04-08-2022 Erythrocyte distribution width (RBC) [Ratio] 14.1 % 11.9-15.3 [facility] Hematocrit Auto (Bld) [Volum e fraction]Ordered By: PROVIDER TEMP on 04-08-2022 Hematocrit (Bld) [Volume fraction] 33.9 % 34.0-46.4 [facility] Hemoglobin [Mass/volume] in BloodOrdered By: PROVIDER TEMP on 04-08-2022 Hemoglobin (Bld) [Mass/Vol] 11.4 g/dL 11.8-15.4 [facility] Leukocytes [#/volume] correc terry for nucleated erythrocytes in Blood by Automated counOrdered By: PROVIDER TEMP on 04-08-2022 WBC corrected for nucl RBC Auto (Bld) [#/Vol] 8.1 10*3/uL 3.8-11.6 [facility] Lymphocytes Auto (Bld) [#/Vo l]Ordered By: PROVIDER TEMP on 04-08-2022 Lymphocytes (Bld) [#/Vol] 2.3 10*3/uL 1.00-4.8 [facility] Lymphocytes/100 WBC Auto (Bl d)Ordered By: PROVIDER TEMP on 04-08-2022 Lymphocytes/100 WBC (Bld) 28.1 % . [facility] MCH Auto (RBC) [Entitic mass ]Ordered By: PROVIDER TEMP on 04-08-2022 MCH (RBC) [Entitic mass] 29.0 pg 24.7-34.3 [facility] MCHC Auto (RBC) [Mass/Vol]Or dered By: PROVIDER TEMP on 04-08-2022 MCHC (RBC) [Mass/Vol] 33.7 g/dL 32.0-35.0 [facility] MCV Auto (RBC) [Entitic vol] Ordered By: PROVIDER TEMP on 04-08-2022 MCV (RBC) [Entitic vol] 86.0 fL 80-100 [facility] Monocyte distribution width [Entitic volume] in Blood by AutomatedOrdered By: PROVIDER TEMP on 04-08-2022 Monocyte distribution width Auto (Bld) [Entitic vol] 13.83 % 0.00-20.00 [facility] Monocytes Auto (Bld) [#/Vol] Ordered By: PROVIDER TEMP on 04-08-2022 Monocytes (Bld) [#/Vol] 0.5 10*3/uL 0.0-0.8 [facility] Monocytes/100 WBC Auto (Bld) Ordered By: PROVIDER TEMP on 04-08-2022 Monocytes/100 WBC (Bld) 6.7 % . [facility] Neutrophils Auto (Bld) [#/Vo l]Ordered By: PROVIDER TEMP on 04-08-2022 Neutrophils (Bld) [#/Vol] 4.8 10*3/uL 1.8-7.7 [facility] Neutrophils/100 WBC Auto (Bl d)Ordered By: PROVIDER TEMP on 04-08-2022 Neutrophils/100 WBC (Bld) 59.3 % . [facility] Nucleated erythrocytes [Pres ence] in Blood by Automated countOrdered By: PROVIDER TEMP on 04-08-2022 Nucleated RBC Auto Ql (Bld) 0.2 /100{WBC} 0-0.5 [facility] Platelet mean volume Auto (B ld) [Entitic vol]Ordered By: PROVIDER TEMP on 04-08-2022 Platelet mean volume (Bld) [Entitic vol] 7.0 fL 6.3-10.7 [facility] Platelets Auto (Bld) [#/Vol] Ordered By: PROVIDER TEMP on 04-08-2022 Platelets (Bld) [#/Vol] 199 10*3/uL 150-450 [facility] RBC Auto (Bld) [#/Vol]Ordere d By: PROVIDER TEMP on 04-08-2022 RBC (Bld) [#/Vol] 3.94 10*6/uL 3.60-5.00 [facility] WBC Auto (Bld) [#/Vol]Ordere d By: PROVIDER TEMP on 04-08-2022 WBC (Bld) [#/Vol] 8.1 10*3/uL 3.8-11.6 [facility] XR shoulder RT min 2V*on XR shoulder RT min 2V* [facility] Novel Other XR shoulder RT min 2V* [facility] Novel Other XR shoulder RT min 2V* [address] [place] [address] Novel Other XR shoulder RT min 2V* [place] [address] W-21 Other XR shoulder RT min 2V* XRay Report N [facility] Other XR shoulder RT min 2V* Signed No rt [facility] Other XR shoulder RT min 2V* Patient: Meagan Sanders MR#: [id number] W-21 Other XR shoulder RT min 2V* 9782 No rt [facility] Other XR shoulder RT min 2V* : 1995 Acct:[id number] W-21 Other XR shoulder RT min 2V* Age/Sex: 27 / F A DM Date: 03/23/22 W-21 Other XR shoulder RT min 2V* Loc: [facility] Room: T ype: [facility] W-21 Other XR shoulder RT min 2V* Attending Dr: Daxa Ford APRN, FIRE RANGE TECHNICIAN-C W-21 Other XR shoulder RT min 2V* Copies to: Yaya Ford APRN, YOUTH DEVELOPMENT PROFESSIONAL W-21 Other XR shoulder RT min 2V* Ordering Provider : Amanda Ford APRN, CNP W-21 Other XR shoulder RT min 2V* Date of Service: 03/23/22 W-21 Other XR shoulder RT min 2V* XR/XR shoulder RT min 2V*: Other chronic pain;Pain in right shoulder W-21 Other XR shoulder RT min 2V* RIGHT SHOULDER - - 3 views W-21 Other XR shoulder RT min 2V* CLINICAL HISTORY: Pain lateral to right shoulder for 6 months. W-21 Other XR shoulder RT min 2V* COMPARISON: None W-21 Other XR shoulder RT min 2V* FINDINGS: No rt [facility] Other XR shoulder RT min 2V* Minimal degenerat misti changes of the right AC joint. Glenohumeral joint is grossly unremarkable. No W-21 Other XR shoulder RT min 2V* acute bony process. W-21 Other XR shoulder RT min 2V* 0 XR/XR shoulder RT min 2V* W-21 Other XR shoulder RT min 2V* IMPRESSION: N [facility] Other XR shoulder RT min 2V* MINIMAL DEGENERAT MISTI CHANGES. NO ACUTE BONY PROCESS. W-21 Other XR shoulder RT min 2V* Impression dictat ed by: Sravan Dickinson Jr., D.O.03/23/2022 4:06 PM W-21 Other XR shoulder RT min 2V* Dictation Locatio n: [facility]12 W-21 Other XR shoulder RT min 2V* Transcribed By: Diaz OWENS 03/23/22 1606 W-21 Other XR shoulder RT min 2V* Dictated By: Jaisel Dickinson Jr, DO 03/23/22 1605 [facility] Novel Other XR shoulder RT min 2V* Signed By: No rt [facility] Other XR shoulder RT min 2V* 03/23/22 160 W-21 Other Coding Summary.on 09-03-2021 Coding Summary. [id number] Gh0 bWw+PGhlYWQ+AN1HKNUyB76 raYPzyF4QX1jJWI9AQXXACZ JVIX8FSD6cjIO6LTpnZ0Ptc iAv IqhchXQqIL14ANt6HAL4iVw oMPqdhA5gzGPyP3q5PcMyAR 65gA94SCrkBRQzAyB5NdTec jsgbWFy V4csRyAixLWyFvc+PHRhYmx lIHdpZHRoPScxMDAlJyBzdH jtMF0mFb3uDEJqSMMyhQhme HNlOiBj m8nnWVGaIWcbIP5jiAkmN0C cqQC4JTMou4s7Cv59rSA+PH XvXYC4vVnjHJmjj578NqJqn 5zdZUP1 hCBoKJnvPHC4P20ru8E6ZMJ iICLyWVG0dXK2gX6jtNehbo oyH4CedEYcUiX2ZCP7qZUop K9odRce wdsjqT6fDxr+F14TQL1STAZ UYM4BGwk9Z6OiFyfikYO+PC 54VOWoSE00gPUeoIFkk7oil Pf0XmYh HRCnXUN6gEyuZBmqj6EkCTY dC83inXEqg4D8ZOPbxUoqlG QpGmQgjIO4bI9cPJliuxmib 2hvdzsn Kgtle9hjvv34oS87H74vSCs sKFOtCJE8UFPkFYVoaOcvql 3snT4dRx3+LIght2kbn1ukg Un2OgWl SREzeuYnwTgnJGC5f7FhEg9 2I0CyrKvrh6QhKyc1mj20uQ Mvt1P0xUM9LSafVRGziM4kR WxlZnQ6 BGQeGnUkiU56oBVmFMimYp2 hvMkxyZptYU1lVDGxbyoeIA DniI1zZVAzmNNwbRqqRH6gH TBpbjtm v596IfPjFZV8RSMvpNUmX0N neN9aItAuHIXtWWUsE4OneG CeOYtcM899ZQpiSkY5PXTgy wLjK4Uy ZSAmxXvyPdN0k9X1Sp9Dj1Z uwfyxKBR4IUnlKZT1KuX2Ae ZpSbJ5C7YsJmr9TEXjmEgtX C1eN1Qe GQEpjqpakhssrHZ3HCNbGTB blW75cCPrGRvoTo9uy1T1s6 64KDIdUMGweA44Gf0qeDlcD TBwdCBU gD6zlrrvi9pzbtmlStAnHFT tDOo2LPp4EIWsfShdQuScMF E0AhT8GOU5hGMbcJ0lvLkqa sckqY9r Oyc+Z42tgU9xNME4QXY6sqj qQPQluePaVJ82UG78G4VfLr wvdGFibGU+PGRpdiBzdHlsZ Q5sYiKr c7lgx9PeRTjmD2ImDEJhVSz cEew8KJQqRBM5yWP2hQ1mLJ BbGCnzk0E9hNR7O0WonhYkt p9qo0jy TEEbKApjF99jlMJsm1C5ULO fnNC9XCEncVkrEnJkeZ38Cq c+WDMdfIsnb1JbOslsm5eim 4yzjBe4 ShBkDWMwmmUceHcyOFM8j0R jEz91E66eGXjdIPIyUAFpOA TcONXemEvjge6rfZ1oDp5+P GNvbCB3 zQX9fP6jRPGtQeY6HLfeH90 5XxBtnGVpXhkwa6pyv1mhyZ o2MhNdFZDvooJbfMgkCIA6a 2SuDo87 D94zIEtvIJVuWCEjZBGfAVX itGcktp4zlA2bLf4+PC9jb2 rnme38fQ20mBC+ZHEvNIW5i WxlPSdw YBQurO2bHMthYkN5ILOmKbC pbC46yYVhXWquHn4djQpfqN dcGC9oDEAwprrah119YnKfe 2xkIDEw lKCrEFqyUWP1V47cz9G0HNS dTKFqKDX0gGW3vB7xiPmorj ogbGVmdDsgdmVydGljYWwtY VyiU304 IHRvcDsnPlBhdGllbnQgTmF wRMm1G5ErMse3HREfpCvvVZ 1bzMNjKNicGu0jiUaxsQytT I1iIWBg lxgky074KqWun6ufSYNvxBE oHBwjUWT9B85ls9A2IHXrFC WmDIP8mPP4pN8yyRoqnmwhn GVmdDsg abXecGrpYOnoLSizV497MLN bhHygLvQzynRgHNQfbDT7CR 48BX83cKJyq8G4bOJ5U6VjS GRpbmct zqphuTF5UFOqKUHwdM46Un4 mkQtcSo0mPEApWPY6HICdfQ RiT6VddI0mFnFfQFSrLRJsN 3RleHQt QWbhI545XZslOyK7RXZdoaA iR0WiJQDbvZoxRsT6t3H6Ns 6NW7Z3PU07PU79tRGrf3H3o EX6I6Lx HCBhiedbobuqtPQ9MOTuHFS znA72Ly2bzJbwEv2fHGSeWN U0CRRmfXKrQ7LqfR7pMrKpX DAwMDAw T1DghKHkAWboF881KPhuWcQ 0CIYqcwDjW1TwBZNlzVcqLc D8y9H0Ml0FWSq9UV15ZI89u ASga9M3 wZJ3U8CoUUXdfmnhsbncrZG 5OPUrXYAabT28Qp9puBpuVt 7nFHUsHXK3RRIfsCVfR1Lru H2rElLj VSWyWSUfZ5JrgXAuUKyyO95 3JFzaYgC9MHMgvbFkY0OtXY UorPvrCqT3k5B5Em5NHPErA G59LZX2 fHY7WJ82IQ01I6VgIuvhfRT ibGU+PHRhYmxlIHdpZHRoPS omXQKiBzJauTfvIW4bLj4hA GVyLWNv vKqhbPDzYkSdj3ruEFTcCAs iZL5saTwyI8JbeSN7UAYye0 w5Mh54K11bJ7UvfCJ+PGNvb NK2oWZ8 gW7uBqSvXaT6QUixX603NmA tkRGzIcigj5qib4qkxAo0Sz S4LHBgztUkbHepWOW0k6PhD x72K79i IHdpZHRoPSIxNSUiIHZhbGl rva5yrS7hXu5+JNDwsBX8jZ V6fX6pVgLiEaJ3APmtY608L nRvcCIv Cmkuv2nsa6ngaOf7NmAkJFB dmyZgpYqxNGN5y9TeJo07T4 DanCxfs1IwYes5ho62uTCkf 6H2lNG6 Y9ZmFIOwmjoeeQYwbRpiAT8 iAJHluynyVKMeaV9oPMMaR5 c9UpKsXuB2BWdxD9QdydY1A DEwcHQg LTipIQT7B43jf1B5EHRoVVV uFOW2gWO9tT5ikOqakjnniG VmdDsgdmVydGljYWwtYWxpZ 246IHRv xRssWQClcJ3cRRLeaCUpmEb kIZ5gISDsquqfAq7VE8QOPx wgSEVBVEhFUjwvdGQ+PHRkI DP9xNwv RZoyHLFyrW5bQZPrI0a0GkA mZrG5HAeaC2DtBXEyrsfnRb 16oA5iRlQeQpB2BDhsV9Lyv mW4ICFi zKEzMEtjTJL1P36oa8E7FWT xSNTiOAT7bEW4lI4iiDkeqi ogbGVmdDsgdmVydGljYWwtY XtgC267 LQPuuEwmQnWdNvL3CoK3ALA 3T0DoXgc7KXMnmVdgVQ3soI SzKQcfJx7wmBdwuHqnWK8wN TBpbjtw MEVrcA3oHLWykMLbzDrgXQ3 vDJKokdhcj883WdGhRQE5WM KjoRCfP3PpwY4mChZvDNSlA GNiH0Mu lBDsAVxuD207CRdnLoC2BGM kghAgS7UkNCRxdXxmXcJ4x6 C4Pm2yClPFPUQumaoweOM+P HRkIHN0 zGvoKRwbJSDgaL0dCSIuZ6q 1CkWzPxV5NUlbO8MkYCZwcr vvWh11yN6hSiZuDeH1KSfgB 6GiluE1 WCHgbVVyMYnnZSW8F77xt7G 7ZNVcDTLbVTS6tHX1zR7jvC lnbjogbGVmdDsgdmVydGljY WwtYWxp J634NMKepEbwKhWwtZWpZSy vdGQ+THHlIBH0lXyjTNwwWS VgjZ3aARIsS2a1QxHkRvK9M MesV6Ac AKZrnisyKa43yR3oYsGlOwM 1CLidM2IkucQ7SQXlrMCvMI asSHS2V60fy2Z9QTVqSVXhH OH1vTI6 gU7qmCisgthxlGNzxGnhwxU ynQseTZhwMBofZ105VFJvwU drGq02zVIxaKbwrkO3R8EmH jwvdHI+ VO05PVFbAG94aBFkjXIda2n keYn3WcDmJOWlVBK4mHuiLM vqp9NkORLoZ96yuTCda0U2Q GNvbGxh gCDeFqIgtNN4aO7sYDrzohw mk9qvablpCjybf1bvkw47tC 87O69oWGonWEAgDPCsCUSeP HZhbGln af2fuB2fAx5+JRMmkZH0sUM 4fI4lToXmNqF2MPcfI120Bh YflAByVzocr0mcq3wcdQd1Q jIwJSIg qkIklVktJJB6w9WwXt16P25 sIHdpZHRoPSIyMCUiIHZhbG pqrw6xmS8xFk1+HC7ym9caq m25jC62 dHI+KTVoWFZ1rXahCGwdJEU vaV6rYLukMsN4GUIjEdRyfM 89gDNwTCixGk2crRbasHmfF B2mRIZx rspuc347NaYja0tfZLLjsVB dANtyBJL3A26im9T3TPWwPN LcLEZ7zEK0lV3kuCxgjeile GVmdDsg ceMmqAnrCTpgVCbcH747VOY vcPcpVfXxdVTuP7clfmIQNB 1lOjwvdGQ+WJVkKHU9nTqzK SdwYWRk aG9kUYBcX7e3FvOmWeL2RHk fD4KmwmQ8EEFdrWBhTICaiC YDoC4lcbpfq4lunzpiUdFoF DAwMDt0 ARo4VEPdrPlmQfFhEAC2KkV 9LQR9pCLwbT3fuAqdcduxaV 9wOyc+RklOOjwvdGQ+PHRkI HK1nMvz DItuELHnuV7aRXKeX1k7OfC xWsN6UJdjE3QhooA4MTBdaK XzMLBexBNQwX0wnrhwh2bzf jogIzAw PZKdLAo5HNf2ETUmzXoeZfA bYYC8YuT6SEQ1wNVjkU5abJ ymgzmkuM3oTpw+TVJOOjwvd GQ+PHRk TGQ3nGugMCecWRChzX2iOIC iM1u3BjNdApI9GGqqB0Svbj N5TSTqoEExWCYlsEWEpI4si sooa1rg rywaBxSfGCGoPZb6BHy8NQT arPweUtTaQRP9UqU7XPD6iS LksF3kuGgxupmugS8aEcp+U RP2MLQ3 MW60VH03C2WxUgwonJJixOI +PHRhYmxlIHdpZHRoPScxMD CyLrXdzZhmXV1kYp1pXGJeG WNvbGxh cHNl (more content not included)... Normal [facility]/Cl in Noteon [...] to work. She has been wearing an [employer] Watch with ECG technology and notes that [...] patient or guardian consented to allow [facility] [employer] to record this visit. 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 ANAMARIA: [...] History Bipolar: Sister. Depression: Mother and Grandparent. [facility] Comment on above: Result Comment: Elec tronically Signed By: Jay DAVEY, Samir Rivera\.br\Date and Time Signed: 09/02/21 09:25 EDT\.br\Electronically Co-Signed By: Rissa Arias\.br\Date and Time Co-Signed: 09/01/21 17:11 EDT Coding Summary.on 09-01-2021 Coding Summary. [id number] Gh0 bWw+PGhlYWQ+SK2FLBVbB00 rrVYnuV5BK6pYXJ2IJQBEVZ HBYD2MMM0nhDA2UPjgP3Dcc iAv HtdhuKKjVT37WYf8MXE4zPh wBMpcfH0eoRVmP6c4SpFzDH 77fL71FTxmOASyOrT1BtKum jsgbWFy I2tzCfZzdSTdRzl+PHRhYmx lIHdpZHRoPScxMDAlJyBzdH fiWN9ePl4fPMNoIIMqaQkcg HNlOiBj k7xeEXSrPOlfMS2ioZhzN0K cyCG5FOVyk3m8Rk17pRH+PH RxJRS9mWkrMJneq421UoPyg 1xwFZG2 yYGeJSpnIXF5E35yf5U3EYH lPJBaAJX5zZY5lC7gcSfnil whT1PpnSQlZvU7ILO7eYKoz C1bjLqk inhfzC0eXuo+G70QCX9MRSH GYW2PGgk4L7VrMlavsGO+PC 97UXLlML56mZJicRHso3lie Bh0RlFp MONaLOX7xDykWHdsh7CqILS oR60ayGLda1P7XHXhwGnowN MrTbDpdTF5zF9pOYnbprmff 2hvdzsn Eilcd2ctnk30gI31S29wVAh tYZFzDEU2WRHmSFYgmLcjqj 6xdQ2gYn5+LGylz4aon7kwt Ms7RrTf BMEsywLmyHtgNAA7b3EfJu2 2C0ZnoTwhu7MkHcj1ft23tU Sne8M4bEC1XCcsZTIgrC6nG WxlZnQ6 WFQlTlGdpO56pBUrCBidXz1 osDozcVrwOH6lXITmrqdzCW YwpK5oYKAqbSMynTyqVZ1mT TBpbjtm l663LqLjBWY3KCPvfCUxT1P siT3kSqCpLUZcSQPnF9DkhO SyYSfaS570VGqcUaR2EVYez pDgO1Wp ICXixGvkJtJ7z8S2Lw6Xn8H jhyihJGQ5AEbnUWN0QoM8Rh PxCaQ9D7ItNbi4HTJtzBztK V1pR0Qm TMKorkrbnwfqbUA0BBFhKEB ahG33tITxJNzvNt4vx0T5c0 74BNMzYAGrmQ02Ni3uvDvxW TBwdCBU vO5dckalh7xbuthnJlKaRAU kAIt8TXx8IAYknHqlNwNeKE L9JeS9MPO8wDTnyY9rjEctj mncyX4d Oyc+M29amC9vHRI5PDQ4sdk fEOJkirPbTF57OV15L7VpUq wvdGFibGU+PGRpdiBzdHlsZ R5pFnCn r4dsy2QbHSycU4VbHKQwIFq iYdw7KRXuBPY3lVL8jD5jHF MgXOnvf6W8aNJ5L2NjiwRxp q8iq7li XNTgSRgbV44gtGYip3T0CFC uvJW8ZBMwzPmyUrIkdD72Ri c+SLUmoMvhg8GwSkdrg3diw 6hlxVj3 RdDkXIZwymStmTvoQAT8c4C cDx37F15iGNnuXLHhIVOpFI ZxNTLmcTsvxc0klZ9tKx6+P GNvbCB3 lMV3xZ0tFTErAjJ0LOfzV16 6TvUexWDtZlhdy6btm0flqX y9RbWhAUCmmeQvhMugLXE8o 4ItUo64 O68dLCmkFIRzBLPfQSHaAGA ggBrqot2ilZ0rCa2+PC9jb2 hsyy84hU42pHO+HIPuJIK2o WxlPSdw ODOrfC5pBOwxSzQ1TSGmIlO yqJ49mIHyKNbbIu4rxCxrdF fkCV6tJPBddawry883EvSlv 2xkIDEw jNKwEUunXET9Q61eg1Q8VAA fXTXxNDR5gLO1lE6ucSdgxs ogbGVmdDsgdmVydGljYWwtY IbmV960 IHRvcDsnPlBhdGllbnQgTmF wMMf4C6AeZap8HQTmzKkyUP 4miNFfYMmbDr6exOddtAfoV Q7tYCRr ajlbk735CcNpc5fuVXPouBO oFHsjTDH7N17dj7L4BASbEO HaPWQ0vLR2nR7kzQjobafji GVmdDsg zhMngCoaXMfaJSehB005TIG dxGlkDrHbvvQnMQFsnKP5GX 68WD57dZBwm2L6uWF0I4EoI GRpbmct jabkqHZ7YVVsRSZtjS68Qq7 qcWyyXt6nBFVcAFF9GMHkcY LgW3KxrK6nXjIrLBYlCDWwC 3RleHQt WJvfL141MWjtAbN1HDWzymE yD4NkQBIhyZprPkK1z9T5Rn 6DN9Q7JE07YK19dNEqa6D4c UO5N0Qq BRIpreholfmqpJN5JLNpMIY adL20Cv6zwYqzJg8bQXBhCM B8BKUfxQTuA9FnyL2hChEtO DAwMDAw F4LknJZrKLwuE632IDnnMnA 9LJKrouKbQ7RaAHItvTjdPx C5c0I7De8WBRt5WB19UB10v AFwm3I4 iEM3B7HrAGHqsxxtkvhgcCG 0CVKvPGFcmO45Qn4ayEgbWz 8nLTUkTTU8LIEraFZxP0Kiw Y5hFeBl OPThSEGiR6OoeIGqVNbuR18 9HKvxEuU9BCOzycSxI7CoYE QmcJvsYdJ1a3R1It6LNDDmJ R30EWV6 eNY0XB19MR53O2PvPeabeCM ibGU+PHRhYmxlIHdpZHRoPS xoOHIeMzKswZakYL8zWi5lT GVyLWNv wRqcyGErYsPlz3lgYOQsMFu dTD8kiWriK1HdgNL8LGHcv1 j9Fp92L06tQ8OhrXB+PGNvb BJ6xAN9 yI3mGaKzFyC4BSqkI053IfJ uqHRbNbyns1qxz0mgaIv7Sc R3YXDadyBzcHpwVMJ8n8XtM y22J48c IHdpZHRoPSIxNSUiIHZhbGl jxx4vnZ8cSy2+KFOblWA0wE L3gK3gLtImJlI9YUcwH195Q nRvcCIv Orepz6kpu4iqyOt6JkViPNN umdSqzFhzLKX7l3CkRj23V5 RmpQsvz3OaLyl1fz38aWKkr 9U6nIO7 T4GhMLIljbjjkGWwpWpeFN5 iRTZufvszRATrqM5zZCVsT5 z7WsIqQcP6CHnaN7LufvD5F DEwcHQg OCthWVM0U44af9T1AHZnRAX ySGU0kCU8xH0olNqcwognwT VmdDsgdmVydGljYWwtYWxpZ 246IHRv lSjzWAOqrE4uMVPwsNAeiZy mIQ5iNOVfjwrtMk1RP1UJEp wgSEVBVEhFUjwvdGQ+PHRkI HF6lAfg ENylOTLwzY6hSJDfP5p4CyG bDaL9XBxhT9VcEZDudtodFm 06xZ4tPiQhWrF2EKewY2Gun gX0VDEc hKQoVGghMBK4Y06bw7G6KUB gNCVfHIQ1oBM1lE1wkQkouj ogbGVmdDsgdmVydGljYWwtY QbgI184 RFOjhQxdDcKlNxI6BhA9DCX 4Q0OaYur9WKQwiQgoOS5nkU KcCOrfNi9uaMmkpHnnWW8iJ TBpbjtw GSPgaF3eBCYcyCFsyUooUW5 uQUIzqsthq831ScIdNNT6PW BugXSkH4MzsX3gXhLiCHRmW EVfN8Dh sBAdTPynP955FHqeSpQ0WSX pyoYiD6UsMSXwsPtgKhW4h1 I1Lh0pDwJQROJofngquED+P HRkIHN0 oMytKJplWQOwyW7dCPGyC3x 3DcBqYtT7BRtuM9XkOCRzvu qzJj43iH0nUbYbRnV8KJrxE 7FlndN5 KDDgxUPkSLhqTRR4Z64rl7V 4ZIDvMJMyPOZ4iMG6yD0ndW lnbjogbGVmdDsgdmVydGljY WwtYWxp Y029JGLtiHpeTgKomBKzBIe vdGQ+ACAqCQC3qGdiIKaeFL RjkH9kQRCyE9e8UeQxMkK8V YrwW7Vf GQPgpglyLt22cQ0eCaEaYgT 0KIcrI7VawpH3KOEvpKFdQY nlCQM1P85gu3N5JLFhSIZkZ BU2nBS7 sL8bpOzrfjzymHRalThycyK iwUidVMojPFeaZ883SHWgoO pcKx76wFYdvGtsxfM0D4NtS jwvdHI+ AP29ZCWgDZ10bMTaxSAhu4a zpYl4YcTkVTCiKJV2aTszPN mlh5LlUUQlG40syJHti0U1A GNvbGxh xJFkJiSmsMG3xL3wJQfvcss ac5nebdrsPdzwx2snzx03nY 17B07qQXdrSQQcSKTnNQDlZ HZhbGln bx8mlY7tGf7+QFAivGU6pGN 7xV1hLuBkSiG6YNneY479Ml OshIFpYknsn1jzv6wdkFp0V jIwJSIg mrSqrMqbWMK4d0SvYz14U89 sIHdpZHRoPSIyMCUiIHZhbG wbjz2seD8wVb6+LE0we8pgv i10uE39 dHI+JNMuETG3hHcaCVplTZZ olJ0bUFmzQcO9XYZzAqMwaU 74uYSgBJidTb9psAmbrOsmY I7lEMFy sbzur623YnAqf9euAROxaWQ oSQnuYJT0T82cd5V1WTAnVO PpIQG4eCM8pC2mtRupsmgbc GVmdDsg hsBccFaiQBgqZLykH863DZG sjSnmQjItiGMmT6wbdcKAAT 1lOjwvdGQ+GHTmQDB2qZcyM SdwYWRk gX2yCAMxN7e4LfLpJzT9JRm oV5CeyxD5KZLupWMnPURjxV MFzZ6rvqpiw7jeyvlzGiLeC DAwMDt0 ZKu7KYJeeCicCnVhHKL8UrZ 9KDO1lNSteI2xjYrifhqoiU 9wOyc+RklOOjwvdGQ+PHRkI JQ6dLph LUtiIGAhcG7rLFKzM1t7MdD gGoQ0KHosW9CyhwL1WWJquE DiEYWslDFRrW2cdrjpy5god jogIzAw NAIwAEu7DRd3QSBbdKcyEoL oFBC1CpT0ZDI2wNRyfC2fwO hmmexbvA7gUks+TVJOOjwvd GQ+PHRk RMU7pZxlFArwKHHbfK9fGJC cI1r9NfFuJrS2TGovE8Ldwi X9KHXwlZEdEMWixEOLkE5og zcfb3dk exysNoCnQJIlPDt4NPf1PDJ ewEgxKvHoUNF4PnE0QOH1cE ClvU9rdZjhycodaW6jXru+U VK3GAN1 TZ58QT38G2HbIedjeEVhiYE +PHRhYmxlIHdpZHRoPScxMD IwBvJdpIibGD8rYr0xWEIkL WNvbGxh cHNl (more content not included)... Normal [facility] Consent for Treatmenton 08-16 Consent for Treatment [id number]#1.00C D:127 Normal [facility] Progress Note-Physicianon Progress Note-Physician [id number]#1.00 CD:127 Normal [facility] Holter Monitoron 08-27-2021 Holter Monitor 48-HOUR [...] turned in. READ BY: Robin Salazar M.D. Dictated: 08/26/2021 [id number] Transcribed: 08/27/2021 cc:Samir Thompson M.D. [facility] Comment on above: Result Comment: Elec tronically Signed By: Martin DAVEY, Robin J\.br\Date and Time Signed: 08/27/21 10:21 EDT Holter Monitor [id number] [id number]#1.00C D:127 [facility] Consent for Treatmenton 08-16 Consent for Treatment [id number]#1.00C D:127 [facility] Coding Summary.on 08-11-2021 Coding Summary. CD:[id number]:1900610V Gh0 bWw+PGhlYWQ+KQ9TRYMdZ57 ynQHpmW5OI8zHLB9DVWSEOV QIOX8BRQ1ekVD5BXmqO1Koo iAv NvaqhRDtGD36JDd0HJO5aWs aIVmnmK5glQUaV9a1QeFqBI 13dJ36RGihSHUsIpZ2SsRpi jsgbWFy N1czMfRqwQZfIwf+PHRhYmx lIHdpZHRoPScxMDAlJyBzdH rrYQ2uHi6iGPQwZVHarXjpu HNlOiBj a4lwQLPaRGfrMU5unTtvD4O dcGQ1QVQew4e8Wg21xLA+PH QiFWN6aDqjAZebm046TgKqe 4lfSEZ8 vJKfYHzvDQZ8G17za5S6SPT aEHGhRRE2sZV8oT6wfPugix ncX7PesRCjSqD0GFG6zELwb V7bcUtn xqzveQ7vXkp+L13TPG7ANAR IMG1YYzz4B7BfAhmzkOB+PC 07IMGzMX05rSLdaYQgl0cvb Dp4YqSh LCPvNKW5zMefYYmzd9BzXYM dV27moSWsw0F0RAUblReqeY CtKsIzgMN9lH1kDDjvufakt 2hvdzsn Bbktk0ahtz20qE69C19lBYx vOLSoBTI3RLAuTSYuvPujak 2doH7kIl0+UXvxv9icn2dnw Up7KlDc TOWqdsCaxUxdPMQ4u1FkSu8 7R0PjnDwdn7PrEjg4ne79eT Aid4Y1sDC9IQvmKUKroM5fK WxlZnQ6 UGCzCsRdaY74fOLeBHvtKz6 zjSkbrCfeFN1oNNNqlopgSC ThvH5zMCYvdOVprKtmSP8sN TBpbjtm o746UyFbUMQ0WZKdjCXkY9Q uzQ8lYzFhNXOdQEAmS1MneP HgEOolZ489SQkbAqK5JFPoo qKuO5Id JFOsqUtsSxZ1b6U4Va3Hq6M vzbkcPMN5CWshEIS2HdD6Ie DoSfI1G5LdSnz8SSGhwKxdJ A2aN1Or XURsemdpswhzfJL5IPDsZFI obV78yGGjVDfyMx1sw8C4n9 97MDVkGAWztF38Tw7zwXqeS TBwdCBU uS9cylupe0rddizmBfSiTDQ kOTq5EKn4KGDyyFgsOgPrIB W6RqG9OKD8oKNvwJ9wmIwgm duynL8b Oyc+X22rzE3eHSJ3FMC5vgm aBGKsbtFnZO90HF11F6RyIv wvdGFibGU+PGRpdiBzdHlsZ Q5lRfEr d4ban1ImNVmiB2IiOIPlJMo vNyu8AFVdTMU9wBE1qX5gRO EsDYkov6L0vUW4X1TvmyQcv m7et5gq MTDmHVhlW23auDWoi5V8KVS guXV5EFRpaRejJmGfdR51Hp c+RXFalFpsu5PbMxedd4enz 3hsvAb1 QiEaFBMobrUezUhhFZQ3j9T gYe10I93lTDbzDAHaAKUmBY ApSXAtsGcedo6ilU6bFs1+P GNvbCB3 dAP5rR9aPRPhGlE4HAqwY77 1AvVxtOFmRkthf9sks7ronW e4AwUfPUBnnvDaaWnqNOB1w 3ZkNy98 B52vQQibNMJxZZGfFZKiQDS cpHanrv4guC3zJw8+PC9jb2 oust04zV53mSQ+MSSjNIZ6z WxlPSdw TLMlmL4fSRvzTaZ6VHJlHxJ dlV96bNFpDAyjQp8skIrmlG ziUV3xTEHzrqyac263OtCiu 2xkIDEw qSOxMGyaAUB8N94gw2S0KUJ kSDViNTA2lHV8tY7hgTwgqt ogbGVmdDsgdmVydGljYWwtY PefH344 IHRvcDsnPlBhdGllbnQgTmF rTYe7J8NmGcs9KQVjlNefOK 0opBAvIYcfGh6vaBbtmOpeJ E7tUEBc oizki620JdFxd7siKPHqeSX hKXhsSTM1G38mu2V8WWFeDO GbPSU7uKL3zX2nfRcbgjdwh GVmdDsg vyUeeQcrUMzuNAjcC546LNN qcGpvQtQzldVyQHWdhHN3NO 39NC40iCEtj2L8pFX7B0KjU GRpbmct bdohaIX6XOOcDOVscP50Dg4 ipMxrBm5mDLKcLKE0XWRlrO AwJ7TvmA6zDjOuVQIxZOKyH 3RleHQt FHlpZ567EKctNdY1MSJtuuO sN6XoQNZtwQcsXxZ4r5H0Ln 8XY3O7IQ57MD47tMNpd3K8s OC4N2Yv UITldcmpvulsaAX5ATWaVGW aqJ84Wg8gxVqsTe9aOXSmIF A1SAUtuGOeL1KynY1jXbFsG DAwMDAw N0UizAOdACacU448QLyvZcR 1CJLaxiRhR5AzFZOwxYytAq L2w6P3Mh6BBRv8IT33OL93l RCqs0Z8 wOD6D1PnIGKfzwyqhrornYH 6QVWzXXHjgR29Ke3wjKrkFn 4vILUiMWY0SHHkeYHrT1Gux S4jNvZy IWJkMTJdR9LojFRzZQthX77 9HEvcDzA0HLYdmiDtO2TlQO UbkRxiIcT5u3J5If8TZWLkW I42XDI8 sUK5HM52FT73H0TgJqhysFV ibGU+PHRhYmxlIHdpZHRoPS ldULApNxZyhAgpAS3dEk1vZ GVyLWNv nTxmrLRdNhLdz8vvWDBqPMg fSB4dzChwW9BiyAJ8HMDpq8 q9Mn98A04cN7AfdCH+PGNvb IJ3oRL7 hM4cMyHqDwX4LPsqI548UvG obVFhOzgqu8igd6wjoPs1Wz M1PDAsljGsgCifOSG7a0BiI n44Y31d IHdpZHRoPSIxNSUiIHZhbGl zlp2hfG6qQg0+HWJhoTY2lC W4pN6gGkKfHgE4NMlpR310O nRvcCIv Nzoxp1cjh7zkgCv8ScYrWBG guvGplNbqLNF1g8FjWt38X5 AhtVbkh5VwUhb3kk66wCBal 3U3fAC4 C3OfMMBcpmvlnGUrlYqxFN6 dKIOnisqoLMHgcE1jGVRtZ2 d2RuEaUzV2PYgbJ7JqwmF8T DEwcHQg OIhjZKA6V51xr2Z3QEYiZIN bGAG4dAV0qJ7ieOjdjeckqK VmdDsgdmVydGljYWwtYWxpZ 246IHRv zXzcTBCseN1rMFTuuADzcAk tXY2hMWSbvqzpXl3FN4QRPp wgSEVBVEhFUjwvdGQ+PHRkI NR2cXmv YWzwKQKhmP6hNTUfK7v2DhD qFmF5NJamT8LoLTZxctvxYc 29jK6mAtCpAvY9YJncR5Aqx sC5RMVg qVIjTNhnAWR0Y21hx7U8FQE wINBiSMO6hQR9sU1ckPvpgq ogbGVmdDsgdmVydGljYWwtY DjuA158 XSHukQjiRqZjUjQ6CpJ0GME 1L3QgRxp0VWLuyDkmLT6nuF BsDNhuLl6nrZqkeLjbMO7fM TBpbjtw FZFojM2nQHRpnNXroSqzEO0 fYXDlwhyms595CzBmANR3PB OduLUqD1LsmL6aFpWeTCXxK ERoN7Se rYXgLKcvN016XZziCjS1KXI vqdLbH3UwGRGabLqgWiV2p5 O0Hy8mJkXDWMQpzgkmqUR+P HRkIHN0 iWteUGceSQVdwY6bXPGrL6d 1IgIpUdT3KLgiH0SjJQJizj rgKm55zM3bWiItXxC8ZHvqJ 3HyhfY8 USHheYOcECsuKQG5A04gf7E 7NYWnLTBcDWT3iMW7hW3axO lnbjogbGVmdDsgdmVydGljY WwtYWxp X872DUTjxVtzKgNxkBUcHSd vdGQ+RUTeFNY2wQflJQhoSU CqkT5cQLUwX8e8LrWfBdI2K EmfX2Ct JUKtevzgLm01dR1bVqPyQmQ 0WAanC2WhwbX9YNZkzZZmIW ciPFA2D44hs7H4UNYjKFExC XD7eFO7 oS3soSyafnwvqPSlfMgstsC yzFvbKPrfYAwnA151DGMolK gbXv11yDYdsIhkpuA5B9EvC jwvdHI+ SF82WJXlRZ73zAAwvPKzc2h syGx2AfEbKWDvSVG1zGibGB vts6UaPTQpP07qdMBpv2Y3M GNvbGxh kLGxTeLrvEZ4gN9fRPtcusi az2ptwhkqYtlil5apte54wJ 94P66bDYoiSAHePCWfPQAqA HZhbGln uf2yaJ3zGc1+PAYgoAF2tED 7yD3fEwEqNfJ2SDkdT591Be XbiGMnNfxpy8lju9ipvZv6R jIwJSIg msRunWefDWM8j3NaFs08L08 sIHdpZHRoPSIyMCUiIHZhbG inft1yyT9tHw3+KM5ig4uzo q02nG45 dHI+OSElQVN1zGhdVCkeFBK lpY4jVVgpPyQ2ARAmYqScnL 73gISqKXheKy6tdWxclJdgG I3mPUDo znwpa930TjSkn5xoNXCpiLV cIWmgXMY7N42aq3N0CPBgJM NeVVL0rSZ0uG4aeFieqgieu GVmdDsg nvDqcGfkAPzrUJqlQ491MLD vmOulReFzrFNbW3emtrZMZK 1lOjwvdGQ+QMJgTEP0qFfoV SdwYWRk eR5bSMDsA6g0HzRwJvY6TUp qD7KsttQ8OGNyhQKuOPSboX GDdR1lngvjv7edpwjiXjUcO DAwMDt0 ESr7OTRljGljNxSyKTS2NhK 5IJE4oJZuoO4pcFpglegjnX 9wOyc+RklOOjwvdGQ+PHRkI WX3hLty RQyfTNMfwF2tRLOaZ6i2XqY aGvZ4NAemS9VoegM3FHRoaZ ToWHHqdRYZoD1inpjeo7gro jogIzAw XHZaEJb5IZc9XFInbEabNsX aVQQ1VeW2RHM9cVDdoT1ysI wapruqsE0bMli+TVJOOjwvd GQ+PHRk EOJ4cYqcOShuWUIzzF2oNIR aI1f8OoUhUhL5CIamH8Nixm Z4YRFdzINbARZksPQCjC8lu xtwf3qn eppdItJvHKAhIUt7GNz5NMF jfZjzFlBaATT8HdC5HJS0dZ MdwV5oeFtceiufdJ8lMmk+U SK9OZK4 FA86KY41L4SrOqxrrQTyvMZ +PHRhYmxlIHdpZHRoPScxMD CfNmNtgKoxMG2yUf8iASUrT WNvbGxh cHNl (more content not included)... Normal [facility] Stress EKG Tracingson 2021 Stress EKG Tracings [id number] [id number]#1.00 CD:127 Normal [facility] Consent for Treatmenton 07-18 Consent for Treatment [id number]#1.00C D:127 Normal [facility] Coding Summary.on 08-03-2021 Coding Summary. CD:[id number]:7198661V Gh0 bWw+PGhlYWQ+VJ0EXCKoI52 jlJNhfX1CQ8iOIX1HCLVCCI QLMR5XDV3fcDX2SFgiH9Bgx iAv JzwuqLUeIJ55EYe4JST6xWj aMXxsbQ3qzXUzW9j0TqWgYO 57uU76UXtyLAUpOuG1BjZvp jsgbWFy U7bcXaBexHKmXet+PHRhYmx lIHdpZHRoPScxMDAlJyBzdH fzRA5cBx6zMJUeAPPddMyna HNlOiBj k2itBTToAHcwMW3ysEfdO1L xmAJ9NKEfz1z0Aa43gHC+PH IoTUJ1rPbjWUmri534LyQqs 7xkQQE5 kSLjXFzcDIB3L74xx1Q1HFN xSCTcFDE0xSI8tC5kkFxhxs rpV7RvbIAhBgJ7QRO8oYXmw K1vrLic gkxmoA5pSjn+T73SYQ5XGLA QXI0KTit6A3YtYqbzjRH+PC 58LFPwON09iJNlrHCmz5gps Wo4UyFb GMVzTVX3jTrcWNpia7FcWHQ vL47igVJzj0K5WFShzBzrgE DiEiMbcEX0xD8qSBixhlyko 2hvdzsn Wnebp7qutq91mG94Z78xIEl cWPEhFOH2STXjIBZyfCeszp 0kaB1sVl1+YXhcg8tlm0lxm Hn6KeJp FUHnwkPapTpaPMY2c4GkOf6 4X4ThyIurf2EvUeh2vu20oY Umf0I8qZO9DSbuBFKolR6lD WxlZnQ6 DFEpTySmdR28uOSqFBsmOy4 rtCizlFvqKM2cUMVmvqshVQ VxbM9nISXoxADogMqbJT7eH TBpbjtm d334BbEmXVP8DVCqyXEoS3M dlA5oGjXoELWzUPHyZ7FfkL AsRZbjP468MUsmPmJ1FBAko nZgX1Hv HJKnrFlhFsV4x1N7Wf7Ox6A zztyfGJJ7BTwtNYI4EjZ4Qk MoYbV0H6RcGia6ESSolOgqA Z7eN7Vj VMWwknvlbzhtkTV6JCMoELX jlF66qHLuKIraKh2ks0Y8s1 64SGZbNUBfnC69Xz1etNlrA TBwdCBU jV4fzozyy0yyeqgeRlHnTER lWIx3YOj8GCSiqKpqJhSuYR B3WrS6YMC4rZGemE0ciFsjt cqukA2h Oyc+S59cpP6pEXO7EHW6hwy yPEWebxLtAG85SO20Z4AgYg wvdGFibGU+PGRpdiBzdHlsZ D4aVmMs e9hfs0QbXRbzI8DzITNlPNs aWhm9HIXoYBC3yVN2mF5fEZ SaIDtbr8Y5rUB5T1WoolPmz p9nh0vw UHEiBGcbQ69ipQYzd3D1FYV fbID2OINggWqpJeAyvG46Ke c+FBReqEmoa6PwQhdtr4sqs 9jjfXo2 TxIeAWRjepHsxJmqYKS2g4R bXu38V04vEPmvZZQnDXLlOO GjHQCrjEbghj4joT8dFy8+P GNvbCB3 fHT3bV4bPKYtRvG1UWtzY16 4NrPcpCEdKbdiy2sqw1crkO s9XmTdFJWswkTpkDnbOET5t 1VkNf65 S96jKBpwUCKdDSQiMYOlJAC ueNsryn3toQ2rZk8+PC9jb2 clkx24nC15tWE+TSMvJRC2x WxlPSdw NCFfyK4eDUbuXsN5GHJrBkS dcN43tZYyBCjzYp7xgDfxcL pwVD2bZYLbxyrlm628UmSky 2xkIDEw jHPkHKaeDGK0M68fk0U8GZO zFTZbKRM0hLS4yQ3qfMtfat ogbGVmdDsgdmVydGljYWwtY PlmG648 IHRvcDsnPlBhdGllbnQgTmF bZTo9Q5MgWeh9DWEkvKbfAC 7hrJJcJOrfQb1pcHddyYmuN K6aQDQh xyklr208OuTmk1qmZPNpvVN vPNffHVF8T52sd6B3FFMkOX KlTMI3lMQ1lN7auAeokuogn GVmdDsg tnPsoPsjTHsbTEitD437JFE jeNdxXdFrrlXkHBHwvNE2QE 37AX07hNGdd4R4lQT1N4HxZ GRpbmct wkstsRP9BKWtDULzfU80Gg1 ucOqyTf7vEQWaMWD4THRbqC ZdW9NyeF7sKaQiUVHsIVIaA 3RleHQt WKgmM542EUluXcA6WVXdwgS lG1RjNBTlkHldKrR1g4D9Uh 4MG5Z1LJ68CG25zSTco7B3l KX7Y1Hb WHBcwvlmjseuwEC9BLLoQSA hpQ52Ny8weHhfNl8yFOQeSJ C8GHOhoAEhS1QkgD3lRjXoQ DAwMDAw K9RipITsZTohA204SIzaTfY 8DAYphzBuU4YwOMJcaJesDc M8c2B4Vs9VCVa4XD97ZP24c BNns8H2 jAX9A3EaYRBpqxttelokaFN 9JKYfYXReeS22Vq2hoDssTm 7aJZStJND9UCKnnNHrP2Wcn G9lXxJl ZAZgQGZlM4MpvKExTHqyC34 8EHveZoL7WLRwjpSsO0IxAY AazOeuRxG1n1O5Ir4SLRQsH Z73HBB7 zEN6HD52NT18B7DiGvhjuOF ibGU+PHRhYmxlIHdpZHRoPS jnJOMgRvByhLgrOU3uGi6cC GVyLWNv gSwrwVRdWnZdx6ugXJMzZVb bAK6xiZqoF7XqlVN3ERGig1 c1Kt37A90cE4RdaBP+PGNvb QH0aGB4 lH9uWfLaBwX4XHzoN011NsE vzWSbIrlje6hmv1scoQn4Eu H0UXXdycIgkMjaQGC6i7NnC v69R72z IHdpZHRoPSIxNSUiIHZhbGl law1auI1gDf3+FIIvoRV3vB R2lO1sIfCsZoO2OQviE406P nRvcCIv Gsszo1cqv2xlnWd1ErTnPFB nsnHbsZetXFZ1q6IsXy76C7 XgaTqfv1SjLya9gt45oMVfc 9K6dQW4 Y1VoLZKzwgngyFQujLvgBE0 zULDeebpxZGWosM5vNSNlE5 z9HbFvEjV0ZMfdG8WdmlW5Z DEwcHQg XConKFD2N04fv5D7CLPkKUJ gREL7gSO7yO9tfMahptpkoR VmdDsgdmVydGljYWwtYWxpZ 246IHRv mHjhLXDsiX8nQPGpgBSvqQb xCR0eUHDlanmxOk6YS6WVUi wgSEVBVEhFUjwvdGQ+PHRkI ZC9xTlc IQohLUYtlR8oRFDwN1u7ObX mVrF7YOdvT7NpVDSaexfaCv 69bF2lItDfWlX8BWpuX1Ppf yS0PFVm iEAmNJviWIT1H01oh0U3YDL pOALkJXS2uJH2zL7ngMfcgx ogbGVmdDsgdmVydGljYWwtY RvxY395 BQOuhLwxWpXhTqM1CwD0FQB 3D0BnXwq7MRVjmOebXK2zcO BpUTpaIk3uaTqvxVpnNQ3vJ TBpbjtw CSUfpF9gASOtgZNkiSqnDZ6 hBUXmbsjdh542QhCmJLN7ES GdkGVzT4MrvJ7uXoRbEGTjX JEuR6Nr tKEuUAduJ172JMayKsY3ZMY sbpXpN5YnLVUdsOvzEsM0f7 J4Ij6vYkUUPJHusfvaaDO+P HRkIHN0 iGesCHysIWNlyA9uZVNkX1m 3TjPbDzS8AWhlZ5IiBQLmtu gxZf41cW7vToAoTuF0LNpdX 1JhqnI0 GLTukNTlJKwdUGS3I59ya1I 0NRDdWZAfVVW4kMG8lP7whF lnbjogbGVmdDsgdmVydGljY WwtYWxp S070ITZchDlfZmJttEBfGZv vdGQ+VYQyVOM7zNyqQWvoII KmgL3dIHQfJ0f0FeIrJyL5J LpsP5Yv ZMEczjsyQp29kV6uLiLzCkO 7RSxxF9MtwaN7HHUtwYSaFR jsCRZ0B00xf9H9EMWkDMQcE RL0uMV5 lY7eqQydhysytDPkeOkvwrE etNxpJDreDBszF435OVFvsL xpPr39qLZlcIpkozN6X9FsY jwvdHI+ OS33CTObVG55uZOthXDgi7r zoWn3FwPmPDWwZCE6pZhbIL mwc8MzNMWaF42itLHxk0W1S GNvbGxh iLVpXgAsdTN5tS9hMHqokwx tf2trjfybAfcdi6qxjz64tC 35I66iENexVAEnBVZtDDKaW HZhbGln lm3anC4mPw1+VPYrxPE1sGO 2dE1oJvYoJpM2BFluG670Ci XbbQBuLhbkk4xgf1lqaVu4Z jIwJSIg igEhzHxbSIS7k6UnBy52J26 sIHdpZHRoPSIyMCUiIHZhbG bazw0ekD1eWi7+LJ7px5mxz o29iL31 dHI+OMMeSBV7pJnnLUpjNUO pwV7uPMabZwC2UMOhVjNdkZ 32nHCkYLjkUi3vaRioxBpqV J6hMPGz lhcvf880XaJna1geDDQzkPJ sATuaOZY4J29bk6D1ZBYfMR MuFEE7lUI6aQ9lbPbqwrqio GVmdDsg tnZkeKbsCAopKNaeM002WTU eeVgoOwBqrDYwS9brvsYLPZ 1lOjwvdGQ+NXSsOKF6iZmwV SdwYWRk yS2cKEHrJ1r2DjIdQdX5CZm nX9RjywJ2MQOzjUUdAJNyiJ MSgY8bwnuum0qeezqsJaByO DAwMDt0 QNx8ZUMiqXsdVeDvHGA7MhD 7UIG1aXOyiK6jeEaeevunnR 9wOyc+RklOOjwvdGQ+PHRkI UX2iSap YGrrOTZogW2lFRVhU2c1PpF yHcI6UFbjD7MszjK5TVLqoP BmVMRkpQSUkM2xvcvov6xzn jogIzAw WNEkKTe0THc5LYVlmVwaMoH mYGN3DfI3PLS9jDPysA1dzS spcacmjV0tOiw+TVJOOjwvd GQ+PHRk YCV1cIntAUxyYEXliW4bEOS vF2v4BqBdEiL8SLtrP3Oydv J5GOKdcEZePEBcfEOLjO6id kkhh3oi fnuxBgRhJRWrEWq0VPx6EYM obSgmWdSlYRM1BrR3OQB8zH ZdrX4uhNihoyfrfF8pXij+U LU8MAS0 MG14BG73O3OwPjssiUOhbDB +PHRhYmxlIHdpZHRoPScxMD QrAeBzfBvbVL6iWz6hAYMnY WNvbGxh cHNl (more content not included)... Normal [facility] Progress Note-Physicianon Progress Note-Physician [id number]#[id number] CD:127 Normal [facility] Heart and Vascular Office/Cl inic Noteon [...] rate increases with exercise. She presented to [facility] 2 weeks ago for suspected nephrolithiasis [...] after patient or guardian consented to allow [employer] to record this visit. 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 ANAMARIA: [...] Never [place] (more content not included)... Normal [facility] Comment on above: Result Comment: Elec tronically Signed By: Jay DAVEY, Samir Rivera\.br\Date and Time Signed: 07/27/21 10:44 EDT\.br\Electronically Co-Signed By: Rissa Arias\.br\Date and Time Co-Signed: 07/24/21 16:24 EDT Consent for Treatmenton Consent for Treatment [id number] D:127 Normal [facility] Referrals Officeon Referrals Office [id number] CD:127 Normal [facility] BASIC METABOLIC PANELon 04-19 Anion gap [Moles/Vol] 8 mmol/L Low 9 - 17 mmol/L [place] Bun/Cre Ratio NOT REPORTED [place] Calcium [Mass/Vol] 9.2 mg/dL 8.6 - 10. 4 mg/dL [place] Chloride [Moles/Vol] 105 mmol/L 98 - 10 7 mmol/L [place] CO2 [Moles/Vol] 26 mmol/L 20 - 31 mmol/L [place] Creatinine [Mass/Vol] 0.67 mg/dL 0.5 - 0.9 mg/dL [place] GFR >60 >60 mL/min [place] GFR Non- >60 >60 mL/min [place] GFR/1.73 sq M predicted among non-blacks MDRD (S/P/Bld) [Vol rate/Area] NOT REPORTED [place] GFR/1.73 sq M predicted among non-blacks MDRD (S/P/Bld) [Vol rate/Area] [place] Comment on above: Average GFR for 20-2 9 years old: 116 mL/min/1.73sq m Chronic Kidney Disease: <60 mL/min/1.73sq m Kidney failure: <15 mL/min/1.73sq m eGFR calculated using average adult body mass. Additional eGFR calculator available at: http://www.Yub.hipages.com.au/multiple_crcl_2012.htm Glucose [Mass/Vol] 99 mg/dL 70 - 99 mg/dL [place] Interpretation and review of laboratory results Abnormal [place] Potassium [Moles/Vol] 4.5 mmol/L 3.7 - 5.3 mmol/L [place] Sodium [Moles/Vol] 139 mmol/L 135 - 144 mmol/L [place] Urea nitrogen [Mass/Vol] 5 mg/dL Low 6 - 20 mg/dL [place] Basic Metabolic Profon 05-08 (cont.) Normal [facility] Comment on above: Result Comment: Aver age GFR for 20-29 years old: 116 mL/min/1.73sq m Chronic Kidney Disease: <60 mL/min/1.73sq m Kidney failure: <15 mL/min/1.73sq m eGFR calculated using average adult body mass. Additional eGFR calculator available at: http://www.[employer]/multiple_crcl_2012.htm Performed By: #### C BC, PT, PTT, BMP #### [facility] [address] [place] [address] Operations Business Partner: Casey Marques MD #### ANICOT #### [facility] [address] [place] [address] Operations Business Partner: Adolph Diaz MD Anion gap [Moles/Vol] 8 mmol/L Low 9-17 [facility] Comment on above: Performed By: #### C BC, PT, PTT, BMP #### [facility] [address] [place] [address] Operations Business Partner: Casey Marques MD #### ANICOT #### [facility] [address] [place] [address] Operations Business Partner: Adolph Diaz MD Calcium [Mass/Vol] 9.2 mg/dL Normal 8.6-10.4 [facility] Comment on above: Performed By: #### C BC, PT, PTT, BMP #### [facility] [address] [place] [address] [phone] Operations Business Partner: Casey Marques MD #### ANICOT #### [facility] [address] [place] [address] Operations Business Partner: Adolph Diaz MD Chloride [Moles/Vol] 105 mmol/L Normal 98-107 [facility] Comment on above: Performed By: #### C BC, PT, PTT, BMP #### [address] [address] Operations Business Partner: Casey Marques MD #### ANICOT #### [facility] [address] [place], [place] [phone] Operations Business Partner: Adolph Diaz MD CO2 [Moles/Vol] 26 mmol/L Normal 20-31 [facility] Comment on above: Performed By: #### C BC, PT, PTT, BMP #### [address] [address] Operations Business Partner: Casey Marques MD #### ANICOT #### [facility] [address] [place] [phone] Operations Business Partner: Adolph Diaz MD Creatinine [Mass/Vol] 0.67 mg/dL Normal 0.50-0.90 [facility] Comment on above: Performed By: #### C BC, PT, PTT, BMP #### [address] [address] Operations Business Partner: Casey Marques MD #### ANICOT #### [facility] [address] [place], [place] [phone] Operations Business Partner: Adolph Diaz MD GFR, Amer >60 Normal >60 [facility] Comment on above: Performed By: #### C BC, PT, PTT, BMP #### [address] [address] Operations Business Partner: Casey Marques MD #### ANICOT #### [facility] [address] [place], [place] [phone] Operations Business Partner: Adolph Diaz MD GFR,non Amer >60 Normal >60 [facility] Comment on above: Performed By: #### C BC, PT, PTT, BMP #### [facility] [address] [place] [address] Operations Business Partner: Casey Marques MD #### ANICOT #### [facility] [address] [place], [place] [phone] Operations Business Partner: Adolph Diaz MD Glucose [Mass/Vol] 99 mg/dL Normal 70-99 [facility] Comment on above: Performed By: #### C BC, PT, PTT, BMP #### [facility] [address] [place] [address] Operations Business Partner: Casey Marques MD #### ANICOT #### [address] [phone] Operations Business Partner: Adolph Diaz MD Potassium [Moles/Vol] 4.5 mmol/L Normal 3.7-5.3 [facility] Comment on above: Performed By: #### C BC, PT, PTT, BMP #### [address] [address] Operations Business Partner: Casey Marques MD #### ANICOT #### [facility] [address] [place] [address] [phone] Operations Business Partner: Adolph Diaz MD Sodium [Moles/Vol] 139 mmol/L Normal 135-144 [facility] Comment on above: Performed By: #### C BC, PT, PTT, BMP #### [facility] [address] [place] [address] Operations Business Partner: Casey Marques MD #### ANICOT #### [facility] [address] [place], [place] [phone] Operations Business Partner: Adolph Diaz MD Urea nitrogen [Mass/Vol] 5 mg/dL Low 6-20 [facility] Comment on above: Performed By: #### C BC, PT, PTT, BMP #### [facility] [address] [place] [address] Operations Business Partner: Casey Marques MD #### ANICOT #### [facility] [address] [place], [place] [phone] Operations Business Partner: Adolph Diaz MD BUN/CRE Ratio NOT REPORTED Normal -20 [facility] Comment on above: Performed By: #### C BC, PT, PTT, BMP #### [facility] [place] [address] Operations Business Partner: Casey Marques MD #### ANICOT #### [facility] [address] [place], [place] [phone] Operations Business Partner: Adolph Diaz MD Staging: NOT REPORTED Normal [facility] Comment on above: Performed By: #### C BC, PT, PTT, BMP #### [facility] [address] [place] [address] Operations Business Partner: Casey Marques MD #### ANICOT #### [facility] [address] [place], [place] [phone] Operations Business Partner: Adolph Diaz MD CBC WITH AUTO DIFFERENTIALon 05-08-2020 Basophils (Bld) [#/Vol] 0.06 10*3/uL [place] Basophils/100 WBC (Bld) 1 % 0 - 2 % [place] Differential Type NOT REPORTED [place] Eosinophils (Bld) [#/Vol] 0.35 10*3/uL [place] Eosinophils/100 WBC (Bld) 3 % 1 - 4 % [place] Erythrocyte distribution width (RBC) [Ratio] 14.7 % High 11.8 - 14.4 % [place] Hematocrit (Bld) [Volume fraction] 38.4 % 36.3 - 47.1 % [place] Hemoglobin (Bld) [Mass/Vol] 12.0 g/dL 11.9 - 15.1 g/dL [place] Immature granulocytes (Bld) [#/Vol] 1 % High 0 [place] Immature granulocytes (Bld) [#/Vol] 0.06 10*3/uL [place] Interpretation and review of laboratory results Abnormal [place] Lymphocytes (Bld) [#/Vol] 2.21 10*3/uL [place] Lymphocytes/100 WBC (Bld) 21 % Low 24 - 43 % [place] MCH (RBC) [Entitic mass] 26.5 pg 25.2 - 33.5 pg [place] MCHC (RBC) [Mass/Vol] 31.3 g/dL 28.4 - 34.8 g/dL [place] MCV (RBC) [Entitic vol] 85.0 fL 82.6 - 102.9 fL [place] Monocytes (Bld) [#/Vol] 0.71 10*3/uL [place] Monocytes/100 WBC (Bld) 7 % 3 - 12 % [place] Platelet mean volume (Bld) [Entitic vol] 8.6 fL 8.1 - 13.5 fL [place] Platelets (Bld) [#/Vol] 256 10*3/uL [place] Platelets (Bld) [#/Vol] NOT REPORTED [place] RBC (Bld) [#/Vol] 4.52 10*6/uL 3.95 - 5.1 1 m/uL [place] RBC morphology finding Nom (Bld) ANISOCYTOSIS PRESENT [place] Segmented neutrophils/100 WBC (Bld) 67 % High 36 - 65 % [place] Segs Absolute 7.30 [place] WBC (Bld) [#/Vol] 10.7 10*3/uL [place] WBC (Bld) [#/Vol] 0.0 10*3/uL 0.0 per 10 0 WBC [place] WBC Morphology NOT REPORTED [place] CBC with Diffon 05-08-2020 Abs. Basophil 0.06 k/uL Normal 0.00-0.20 [facility] Comment on above: Performed By: #### C BC, PT, PTT, BMP #### [address] [address] Operations Business Partner: Casey Marques MD #### ANICOT #### [address] [address] Operations Business Partner: Adolph Diaz MD Abs.Imm.Granulocyte 0.06 k/uL Normal 0.00-0.30 [facility] Comment on above: Performed By: #### C BC, PT, PTT, BMP #### [place] [address] Operations Business Partner: Casey Marques MD #### ANICOT #### [address] [phone] Operations Business Partner: Adolph Diaz MD Abs.Neutrophil (Seg) 7.30 k/uL Normal 1.50-8.10 [facility] Comment on above: Performed By: #### C BC, PT, PTT, BMP #### [place] [address] Operations Business Partner: Casey Marques MD #### ANICOT #### [address] [phone] Operations Business Partner: Adolph Diaz MD Basophils/100 WBC (Bld) 1 % Normal 0-2 [facility] Comment on above: Performed By: #### C BC, PT, PTT, BMP #### [place] [address] Operations Business Partner: Casey Marques MD #### ANICOT #### [address] [phone] Operations Business Partner: Adolph Diaz MD Eosinophils (Bld) [#/Vol] 0.35 10*3/uL Normal 0.00-0.44 [facility] Comment on above: Performed By: #### C BC, PT, PTT, BMP #### [address] [address] Operations Business Partner: Casey Marques MD #### ANICOT #### [facility] [address] [place], [place] [phone] Operations Business Partner: Adolph Diaz MD Eosinophils/100 WBC (Bld) 3 % Normal 1-4 [facility] Comment on above: Performed By: #### C BC, PT, PTT, BMP #### [address] [address] Operations Business Partner: Casey Marques MD #### ANICOT #### [facility] [address] [phone] Operations Business Partner: Adolph Diaz MD Erythrocyte distribution width (RBC) [Ratio] 14.7 % High 11.8-14.4 [facility] Comment on above: Performed By: #### C BC, PT, PTT, BMP #### [address] [phone] Operations Business Partner: Casey Marques MD #### ANICOT #### [facility] [address] [place] [phone] Operations Business Partner: Adolph Diaz MD Hematocrit (Bld) [Volume fraction] 38.4 % Normal 36.3-47.1 [facility] Comment on above: Performed By: #### C BC, PT, PTT, BMP #### [address] [phone] Operations Business Partner: Casey Marques MD #### ANICOT #### [facility] [address] [place], [place] [phone] Operations Business Partner: Adolph Diaz MD Hemoglobin (Bld) [Mass/Vol] 12.0 g/dL Normal 11.9-15.1 [facility] Comment on above: Performed By: #### C BC, PT, PTT, BMP #### [address] [address] Operations Business Partner: Casey Marques MD #### ANICOT #### [facility] [address] [place] [address] Operations Business Partner: Adolph Diaz MD Immature granulocytes/100 WBC (Bld) 1 % High 0 [facility] Comment on above: Performed By: #### C BC, PT, PTT, BMP #### [address] [address] Operations Business Partner: Casey Marques MD #### ANICOT #### [address] [address] Operations Business Partner: Adolph Diaz MD Lymphocytes (Bld) [#/Vol] 2.21 10*3/uL Normal 1.10-3.70 [facility] Comment on above: Performed By: #### C BC, PT, PTT, BMP #### [address] [address] Operations Business Partner: Casey Marques MD #### ANICOT #### [facility] [address] [place] [address] Operations Business Partner: Adolph Diaz MD Lymphocytes/100 WBC (Bld) 21 % Low 24-43 [facility] Comment on above: Performed By: #### C BC, PT, PTT, BMP #### [address] [address] Operations Business Partner: Casey Marques MD #### ANICOT #### [facility] [address] [place] [address] Operations Business Partner: Adolph Diaz MD MCH (RBC) [Entitic mass] 26.5 pg Normal 25.2-33.5 [facility] Comment on above: Performed By: #### C BC, PT, PTT, BMP #### [address] [address] Operations Business Partner: Casey Marques MD #### ANICOT #### [facility] [address] [place], [place] [phone] Operations Business Partner: Adolph Diaz MD MCHC (RBC) [Mass/Vol] 31.3 g/dL Normal 28.4-34.8 [facility] Comment on above: Performed By: #### C BC, PT, PTT, BMP #### [address] [phone] Operations Business Partner: Casey Marques MD #### ANICOT #### [address] [phone] Operations Business Partner: Adolph Diaz MD MCV (RBC) [Entitic vol] 85.0 fL Normal 82.6-102.9 [facility] Comment on above: Performed By: #### C BC, PT, PTT, BMP #### [address] [phone] Operations Business Partner: Casey Marques MD #### ANICOT #### [facility] [address] [place], [place] [phone] Operations Business Partner: Adolph Diaz MD Monocytes (Bld) [#/Vol] 0.71 10*3/uL Normal 0.10-1.20 [facility] Comment on above: Performed By: #### C BC, PT, PTT, BMP #### [address] [phone] Operations Business Partner: Casey Marques MD #### ANICOT #### [facility] [address] [place], [place] [phone] Operations Business Partner: Adolph Diaz MD Monocytes/100 WBC (Bld) 7 % Normal 3-12 [facility] Comment on above: Performed By: #### C BC, PT, PTT, BMP #### [address] [address] Operations Business Partner: Casey Marques MD #### ANICOT #### [facility] [address] [place] [address] Operations Business Partner: Adolph Diaz MD Neutrophil (Seg) 67 % High 36-65 [facility] Comment on above: Performed By: #### C BC, PT, PTT, BMP #### [address] [address] Operations Business Partner: Casey Marques MD #### ANICOT #### [facility] [address] [place], [place] [phone] Operations Business Partner: Adolph Diaz MD NRBC Automated 0.0 per 100 WBC Normal 0.0 [facility] Comment on above: Performed By: #### C BC, PT, PTT, BMP #### [address] [address] Operations Business Partner: Casey Marques MD #### ANICOT #### [facility] [address] [place], [place] [phone] Operations Business Partner: Adolph Diaz MD Platelet mean volume (Bld) [Entitic vol] 8.6 fL Normal 8.1-13.5 [facility] Comment on above: Performed By: #### C BC, PT, PTT, BMP #### [address] [address] Operations Business Partner: Casey Marques MD #### ANICOT #### [facility] [address] [place] [address] Operations Business Partner: Adolph Diaz MD Platelets (Bld) [#/Vol] 256 10*3/uL Normal 138-453 [facility] Comment on above: Performed By: #### C BC, PT, PTT, BMP #### [address] [address] Operations Business Partner: Casey Marques MD #### ANICOT #### [facility] [address] [place] [address] Operations Business Partner: Adolph Diaz MD RBC (Bld) [#/Vol] 4.52 10*6/uL Normal 3.95-5.11 [facility] Comment on above: Performed By: #### C BC, PT, PTT, BMP #### [address] [address] Operations Business Partner: Casey Marques MD #### ANICOT #### [address] [address] Operations Business Partner: Adolph Diaz MD RBC morphology finding Nom (Bld) ANISOCYTOSIS PRESENT Normal [facility] Comment on above: Performed By: #### C BC, PT, PTT, BMP #### [address] [address] Operations Business Partner: Casey Marques MD #### ANICOT #### [facility] [address] [place] [address] Operations Business Partner: Adolph Diaz MD WBC (Bld) [#/Vol] 10.7 10*3/uL Normal 3.5-11.3 [facility] Comment on above: Performed By: #### C BC, PT, PTT, BMP #### [address] [address] Operations Business Partner: Casey Marques MD #### ANICOT #### [facility] [address] [place] [address] Operations Business Partner: Adolph Diaz MD Auto Diff Performed NOT REPORTED Normal [facility] Comment on above: Performed By: #### C BC, PT, PTT, BMP #### [facility] [address] [place] [address] Operations Business Partner: Casey Marques MD #### ANICOT #### [facility] [address] [place] [address] Operations Business Partner: Adolph Diaz MD Platelet Estimate NOT REPORTED Normal [facility] Comment on above: Performed By: #### C BC, PT, PTT, BMP #### [facility] [address] [place] [address] Operations Business Partner: Casey Marques MD #### ANICOT #### [facility] [address] [place] [address] Operations Business Partner: Adolph Diaz MD WBC Morphology NOT REPORTED Normal [facility] Comment on above: Performed By: #### C BC, PT, PTT, BMP #### [facility] [address] [place] [address] Operations Business Partner: Casey Marques MD #### ANICOT #### [facility] [address] [place] [address] Operations Business Partner: Adolph Diaz MD Surgical Pathologyon 021 Surgical [...] with no areas of granularity or masses. Underwriting Analyst sections 1cs. tm Microscopic Description Sections of gastric mucosa show increased lymphocytes and plasma cells in the lamina propria. There is no evidence of acute inflammation, intestinal metaplasia or dysplasia. There is no evidence of organisms suspicious for Helicobacter with the routine H&E stains. SURGICAL PATHOLOGY CONSULTATION Patient Name: JAZ SANDERS [facility] Rec: [id number] Path Number: [id number] [facility] CONSULTING PATHOLOGISTS [facility] ANATOMIC PATHOLOGY [address] [place] [address]. [place], [place] [address] [place] Basic Metabolic Panelon -2 Anion gap [Moles/Vol] 13 mmol/L 9 - 17 mmol/L [place] Bun/Cre Ratio NOT REPORTED [place] Calcium [Mass/Vol] 9.4 mg/dL 8.6 - 10. 4 mg/dL [place] Chloride [Moles/Vol] 104 mmol/L 98 - 10 7 mmol/L [place] CO2 [Moles/Vol] 23 mmol/L 20 - 31 mmol/L [place] Creatinine [Mass/Vol] 0.73 mg/dL 0.5 - 0.9 mg/dL [place] GFR >60 >60 mL/min [place] GFR Non- >60 >60 mL/min [place] GFR/1.73 sq M predicted among non-blacks MDRD (S/P/Bld) [Vol rate/Area] NOT REPORTED [place] GFR/1.73 sq M predicted among non-blacks MDRD (S/P/Bld) [Vol rate/Area] [place] Comment on above: Average GFR for 20-2 9 years old: 116 mL/min/1.73sq m Chronic Kidney Disease: <60 mL/min/1.73sq m Kidney failure: <15 mL/min/1.73sq m eGFR calculated using average adult body mass. Additional eGFR calculator available at: http://www.Yub.hipages.com.au/multiple_crcl_2012.htm Glucose [Mass/Vol] 98 mg/dL 70 - 99 mg/dL [place] Potassium [Moles/Vol] 4.1 mmol/L 3.7 - 5.3 mmol/L [place] Sodium [Moles/Vol] 140 mmol/L 135 - 144 mmol/L [place] Urea nitrogen [Mass/Vol] 6 mg/dL 6 - 20 mg/dL [place] Basic Metabolic Profon 05-07 (cont.) Normal [facility] Comment on above: Result Comment: Aver age GFR for 20-29 years old: 116 mL/min/1.73sq m Chronic Kidney Disease: <60 mL/min/1.73sq m Kidney failure: <15 mL/min/1.73sq m eGFR calculated using average adult body mass. Additional eGFR calculator available at: http://www.Personal [employer]/multiple_crcl_2012.htm Performed By: #### Rudi BLANK, BMP #### [facility] [address] [place] [address] Operations Business Partner: Casey Marques MD Anion gap [Moles/Vol] 13 mmol/L Normal 9-17 [facility] Comment on above: Performed By: #### C ABHAY, BMP #### [facility] [address] [place] [address] Operations Business Partner: Casey Marques MD Calcium [Mass/Vol] 9.4 mg/dL Normal 8.6-10.4 [facility] Comment on above: Performed By: #### C ABHAY, BMP #### [facility] [address] [place] [address] Operations Business Partner: Casey Marques MD Chloride [Moles/Vol] 104 mmol/L Normal 98-107 [facility] Comment on above: Performed By: #### C ABHAY, BMP #### [facility] [address] [place] [address] [phone] Operations Business Partner: Casey Marques MD CO2 [Moles/Vol] 23 mmol/L Normal 20-31 [facility] Comment on above: Performed By: #### C BC, BMP #### [facility] [address] [place] [address] Operations Business Partner: Casey Marques MD Creatinine [Mass/Vol] 0.73 mg/dL Normal 0.50-0.90 [facility] Comment on above: Performed By: #### C BC, BMP #### [facility] [address] [place] [address] Operations Business Partner: Casey Marques MD GFR, Amer >60 Normal >60 [facility] Comment on above: Performed By: #### C BC, BMP #### [facility] [address] [place] [address] Operations Business Partner: Casey Marques MD GFR,non Amer >60 Normal >60 [facility] Comment on above: Performed By: #### C BC, BMP #### [facility] [address] [place] [address] Operations Business Partner: Casey Marques MD Glucose [Mass/Vol] 98 mg/dL Normal 70-99 [facility] Comment on above: Performed By: #### C BC, BMP #### [facility] [address] [place] [address] Operations Business Partner: Casey Marques MD Potassium [Moles/Vol] 4.1 mmol/L Normal 3.7-5.3 [facility] Comment on above: Performed By: #### C BC, BMP #### [facility] [address] [place] [address] Operations Business Partner: Casey Marques MD Sodium [Moles/Vol] 140 mmol/L Normal 135-144 [facility] Comment on above: Performed By: #### C BC, BMP #### [facility] [address] [place] [address] Operations Business Partner: Casey Marques MD Urea nitrogen [Mass/Vol] 6 mg/dL Normal 6-20 [facility] Comment on above: Performed By: #### C BC, BMP #### [facility] [address] [place] [address]37 Operations Business Partner: Casey Marques MD BUN/CRE Ratio NOT REPORTED Normal 9- [facility] Comment on above: Performed By: #### C BC, BMP #### [facility] [address] [place] [address] 81599 Operations Business Partner: Casey Marques MD Staging: NOT REPORTED Normal [facility] Comment on above: Performed By: #### C BC, BMP #### [facility] [address] [place] [address] 54810 Operations Business Partner: Casey Marques MD CBCon 05-07-2020 Erythrocyte distribution width (RBC) [Ratio] 14.4 % Normal 11.8-14.4 [facility] Comment on above: Performed By: #### C BC, BMP #### [address] [address] Operations Business Partner: Casey Marques MD Hematocrit (Bld) [Volume fraction] 40.4 % Normal 36.3-47.1 [facility] Comment on above: Performed By: #### C BC, BMP #### [facility] [address] [place] [address]16 Operations Business Partner: Casey Marques MD Hemoglobin (Bld) [Mass/Vol] 12.6 g/dL Normal 11.9-15.1 [facility] Comment on above: Performed By: #### C BC, BMP #### [facility] [address] [place] [address]2597 Operations Business Partner: Casey Marques MD MCH (RBC) [Entitic mass] 26.1 pg Normal 25.2-33.5 [facility] Comment on above: Performed By: #### C BC, BMP #### [address] [address] Operations Business Partner: Casey Marques MD MCHC (RBC) [Mass/Vol] 31.2 g/dL Normal 28.4-34.8 [facility] Comment on above: Performed By: #### C BC, BMP #### [address] [address] Operations Business Partner: Casey Marques MD MCV (RBC) [Entitic vol] 83.8 fL Normal 82.6-102.9 [facility] Comment on above: Performed By: #### C BC, BMP #### [address] [address] Operations Business Partner: Casey Marques MD NRBC Automated 0.0 per 100 WBC Normal 0.0 [facility] Comment on above: Performed By: #### C BC, BMP #### [address] [address] Operations Business Partner: Casey Marques MD Platelet mean volume (Bld) [Entitic vol] 8.7 fL Normal 8.1-13.5 [facility] Comment on above: Performed By: #### C BC, BMP #### [address] [address] Operations Business Partner: Casey Marques MD Platelets (Bld) [#/Vol] 289 10*3/uL Normal 138-453 [facility] Comment on above: Performed By: #### C BC, BMP #### [address] [address] Operations Business Partner: Casey Marques MD RBC (Bld) [#/Vol] 4.82 10*6/uL Normal 3.95-5.11 [facility] Comment on above: Performed By: #### C BC, BMP #### [address] [address] Operations Business Partner: Casey Marques MD WBC (Bld) [#/Vol] 13.7 10*3/uL [facility] 3.5-11.3 [facility] Comment on above: Performed By: #### C , BMP #### [facility] [address] [place], [place] [id number] Operations Business Partner: Casey Marques MD Erythrocyte distribution width (RBC) [Ratio] 14.4 % 11.8 - 14.4 % [place] Hematocrit (Bld) [Volume fraction] 40.4 % 36.3 - 47.1 % [place] Hemoglobin (Bld) [Mass/Vol] 12.6 g/dL 11.9 - 15.1 g/dL [place] Interpretation and review of laboratory results Abnormal [place] MCH (RBC) [Entitic mass] 26.1 pg 25.2 - 33.5 pg [place] MCHC (RBC) [Mass/Vol] 31.2 g/dL 28.4 - 34.8 g/dL [place] MCV (RBC) [Entitic vol] 83.8 fL 82.6 - 102.9 fL [place] Platelet mean volume (Bld) [Entitic vol] 8.7 fL 8.1 - 13.5 fL [place] Platelets (Bld) [#/Vol] 289 10*3/uL [place] RBC (Bld) [#/Vol] 4.82 10*6/uL 3.95 - 5.1 1 m/uL [place] WBC (Bld) [#/Vol] 0.0 10*3/uL 0.0 per 10 0 WBC [place] WBC (Bld) [#/Vol] 13.7 10*3/uL [place] ESOPHAGRAMon 05-07-2020 [place] ESOPHAGRAM EXAMINATION: [...] MD 05/07/20 Final result Normal [facility] EXAMINATION: SINGLE CONTRAST ESOPHAGRAM 05/07/2020 HISTORY: ORDERING [...] sleeve. No obstruction. No extravasation of contrast. [place], [place] Incoming Radiant Results From [employer] - 05/07/2020 10:04 AM EST EXAMINATION: SINGLE [...] of contrast. IMPRESSION: No extravasation of contrast. [place] No extravasation of contrast. [place] POCT urine pregnancyon 05-07 Beta HCG ( test) Ql (U) Negative NEGATIVE [place] Comment on above: Specimens with hCG [...] [Moles/Vol] 10 mmol/L 9 - 17 mmol/L [place] Bun/Cre Ratio NOT REPORTED [place] Calcium [Mass/Vol] 9.5 mg/dL 8.6 - 10. 4 mg/dL [place] Chloride [Moles/Vol] 103 mmol/L 98 - 10 7 mmol/L [place] CO2 [Moles/Vol] 19 mmol/L Low 20 - 31 mmol/L [place] Creatinine [Mass/Vol] 0.9 mg/dL 0.5 - 0.9 mg/dL [place] GFR >60 >60 mL/min [place] GFR Non- >60 >60 mL/min [place] GFR/1.73 sq M predicted among non-blacks MDRD (S/P/Bld) [Vol rate/Area] NOT REPORTED [place] GFR/1.73 sq M predicted among non-blacks MDRD (S/P/Bld) [Vol rate/Area] [place] Comment on above: Average GFR for 20-2 9 years old: 116 mL/min/1.73sq m Chronic Kidney Disease: <60 mL/min/1.73sq m Kidney failure: <15 mL/min/1.73sq m eGFR calculated using average adult body mass. Additional eGFR calculator available at: http://www.Yub.hipages.com.au/multiple_crcl_2012.htm Glucose [Mass/Vol] 162 mg/dL High 70 - 99 mg/dL [place] Interpretation and review of laboratory results Abnormal [place] Potassium [Moles/Vol] 3.9 mmol/L 3.7 - 5.3 mmol/L [place] Sodium [Moles/Vol] 132 mmol/L Low 135 - 144 mmol/L [place] Urea nitrogen [Mass/Vol] 10 mg/dL 6 - 20 mg/dL [facility], [place] Basic Metabolic Profon 05-06 (cont.) Normal [facility] Comment on above: Result Comment: Aver age GFR for 20-29 years old: 116 mL/min/1.73sq m Chronic Kidney Disease: <60 mL/min/1.73sq m Kidney failure: <15 mL/min/1.73sq m eGFR calculated using average adult body mass. Additional eGFR calculator available at: http://www.Personal On Demand/multiple_crcl_2012.htm Performed By: #### C BC, BMP #### [facility] [address] [place] [address] Operations Business Partner: Casey Marques MD Anion gap [Moles/Vol] 10 mmol/L Normal 9-17 [facility] Comment on above: Performed By: #### C BC, BMP #### [facility] [address] [place] [address] 22946 Operations Business Partner: Casey Marques MD Calcium [Mass/Vol] 9.5 mg/dL Normal 8.6-10.4 [facility] Comment on above: Performed By: #### C BC, BMP #### [facility] [address] [place] [address] 6[address] Operations Business Partner: Casey Marques MD Chloride [Moles/Vol] 103 mmol/L Normal 98-107 [facility] Comment on above: Performed By: #### C BC, BMP #### [facility] [address] [place] [address] Operations Business Partner: Casey Marques MD CO2 [Moles/Vol] 19 mmol/L Low 20-31 [facility] Comment on above: Performed By: #### C BC, BMP #### [facility] [address] [place] [address] Operations Business Partner: Casey Marques MD Creatinine [Mass/Vol] 0.90 mg/dL Normal 0.50-0.90 [facility] Comment on above: Performed By: #### C BC, BMP #### [facility] [address] [place] [address] 80768 Operations Business Partner: Casey Marques MD GFR, Amer >60 Normal >60 [facility] Comment on above: Performed By: #### C BC, BMP #### [facility] [address] [place] [address]18 Operations Business Partner: Casey Marques MD GFR,non Amer >60 Normal >60 [facility] Comment on above: Performed By: #### C BC, BMP #### [facility] [address] [place] [address] 32626 Operations Business Partner: Casey Marques MD Glucose [Mass/Vol] 162 mg/dL High 70-99 [facility] Comment on above: Performed By: #### C BC, BMP #### [facility] [address] [place] [address] Operations Business Partner: Casey Marques MD Potassium [Moles/Vol] 3.9 mmol/L Normal 3.7-5.3 [facility] Comment on above: Performed By: #### C BC, BMP #### [facility] [address] [place] [address]14 Operations Business Partner: Casey Marques MD Sodium [Moles/Vol] 132 mmol/L Low 135-144 [facility] Comment on above: Performed By: #### C BC, BMP #### [facility] [address] [place] [address] 54067 Operations Business Partner: Casey Marques MD Urea nitrogen [Mass/Vol] 10 mg/dL Normal 6-20 [facility] Comment on above: Performed By: #### C BC, BMP #### [facility] [address] [place] [address] Operations Business Partner: Casey Marques MD BUN/CRE Ratio NOT REPORTED Normal 9- [facility] Comment on above: Performed By: #### C BC, BMP #### [address] [address] Operations Business Partner: Casey Marques MD Staging: NOT REPORTED Normal [facility] Comment on above: Performed By: #### C BC, BMP #### [address] [address] Operations Business Partner: Casey Marques MD CBCon 05-06-2020 Erythrocyte distribution width (RBC) [Ratio] 14.6 % High 11.8-14.4 [facility] Comment on above: Performed By: #### C BC, BMP #### [facility] [address] [place] [address] 10496 Operations Business Partner: Casey Marques MD Hematocrit (Bld) [Volume fraction] 42.5 % Normal 36.3-47.1 [facility] Comment on above: Performed By: #### C BC, BMP #### [address] [address] Operations Business Partner: Casey Marques MD Hemoglobin (Bld) [Mass/Vol] 12.8 g/dL Normal 11.9-15.1 [facility] Comment on above: Performed By: #### C BC, BMP #### [address] [address] Operations Business Partner: Casey Marques MD MCH (RBC) [Entitic mass] 26.9 pg Normal 25.2-33.5 [facility] Comment on above: Performed By: #### C BC, BMP #### [facility] [address] [place] [address] 00586 Operations Business Partner: Casey Marques MD MCHC (RBC) [Mass/Vol] 30.1 g/dL Normal 28.4-34.8 [facility] Comment on above: Performed By: #### C BC, BMP #### [address] [address] Operations Business Partner: Casey Marques MD MCV (RBC) [Entitic vol] 89.3 fL Normal 82.6-102.9 [facility] Comment on above: Performed By: #### C BC, BMP #### [address] [address] Operations Business Partner: Casey Marques MD NRBC Automated 0.0 per 100 WBC Normal 0.0 [facility] Comment on above: Performed By: #### C BC, BMP #### [address] [address] Operations Business Partner: Casey Marques MD Platelet mean volume (Bld) [Entitic vol] 8.4 fL Normal 8.1-13.5 [facility] Comment on above: Performed By: #### C BC, BMP #### [address] [address] Operations Business Partner: Casey Marques MD Platelets (Bld) [#/Vol] 300 10*3/uL Normal 138-453 [facility] Comment on above: Performed By: #### C BC, BMP #### [address] [address] Operations Business Partner: Casey Marques MD RBC (Bld) [#/Vol] 4.76 10*6/uL Normal 3.95-5.11 [facility] Comment on above: Performed By: #### C BC, BMP #### [address] [address] Operations Business Partner: Casey Marques MD WBC (Bld) [#/Vol] 14.3 10*3/uL High 3.5-11.3 [facility] Comment on above: Performed By: #### C BC, BMP #### [facility] [address] [place] [address] Operations Business Partner: Casey Marques MD CBC without Diffon Erythrocyte distribution width (RBC) [Ratio] 14.6 % High 11.8 - 14.4 % [place] Hematocrit (Bld) [Volume fraction] 42.5 % 36.3 - 47.1 % [place] Hemoglobin (Bld) [Mass/Vol] 12.8 g/dL 11.9 - 15.1 g/dL [place] Interpretation and review of laboratory results Abnormal [place] MCH (RBC) [Entitic mass] 26.9 pg 25.2 - 33.5 pg [place] MCHC (RBC) [Mass/Vol] 30.1 g/dL 28.4 - 34.8 g/dL [place] MCV (RBC) [Entitic vol] 89.3 fL 82.6 - 102.9 fL [place] Platelet mean volume (Bld) [Entitic vol] 8.4 fL 8.1 - 13.5 fL [place] Platelets (Bld) [#/Vol] 300 10*3/uL [place] RBC (Bld) [#/Vol] 4.76 10*6/uL 3.95 - 5.1 1 m/uL [place] WBC (Bld) [#/Vol] 14.3 10*3/uL [place] WBC (Bld) [#/Vol] 0.0 10*3/uL 0.0 per 10 0 WBC [place] Surgical Pathologyon 021 Surgical Pathology (NOTE) [...] with no areas of granularity or masses. Underwriting Analyst sections 1cs. tm Microscopic Description Sections of gastric mucosa show increased lymphocytes and plasma cells in the lamina propria. There is no evidence of acute inflammation, intestinal metaplasia or dysplasia. There is no evidence of organisms suspicious for Helicobacter with the routine BRI stains. SURGICAL PATHOLOGY CONSULTATION Patient Name: JAZ SANDERS [facility] Rec: [id number] Path Number: [id number] [facility] ANATOMIC PATHOLOGY [address] [place] [id number] [facility] Comment on above: Performed By: #### C BC, PT, PTT, BMP #### [address] [phone] Operations Business Partner: Casey Marques MD #### ANICOT #### [facility] [address] [place] [address] Operations Business Partner: Adolph Diaz MD [id number] 05-04-2020 SARS-CoV-2 [facility] Comment on above: Performed By: #### C OVID #### [address] [phone] Operations Business Partner: Casey Marques MD SARS-CoV-2 Not Detected [facility] Comment on above: Result Comment: The specimen is NEGATIVE for SARS-CoV-2, the novel coronavirus associated with COVID-19. A negative result does not rule out COVID-19. Bernard SARS-CoV-2 for use on the Bernard [employer] is a real-time RT-PCR test intended [...] this assay. Fact sheet for Healthcare Providers: https://www.fda.gov/media/020554/download Fact sheet for Patients: https://www.fda.gov/media/793793/download METHODOLOGY: RT-PCR Performed By: #### C OVID #### [facility] [address] [place] [address] Operations Business Partner: Casey Marques MD SARS-CoV-2,Rapid [facility] Comment on above: Performed By: #### C OVID #### [facility] [address] [place] [address] 360[address] Operations Business Partner: Casey Marques MD [id number] 05-03-2020 SARS-CoV-2 Source .NASOPHARYNGEAL SWAB [facility] Comment on above: Performed By: #### C OVID #### [facility] [address] [place] [address] Operations Business Partner: Casey Marques MD Nicotineon 04-26-2020 [id number] <2 [facility] Comment on above: Performed By: #### C BC, PT, PTT, BMP #### [facility] [address] [place] [address] Operations Business Partner: Casey Marques MD #### ANICOT #### [facility] [address] [place] [address] Operations Business Partner: Adolph Diaz MD Cotinine <2 [facility] Comment on above: Performed By: #### C BC, PT, PTT, BMP #### [facility] [address] [place] [address] Operations Business Partner: Casey Marques MD #### ANICOT #### [facility] [address] [place] [address] Operations Business Partner: Adolph Diaz MD Nicotine <2 Normal [facility] Comment on above: Result Comment: (NOT E) [...] positive. Test developed and characteristics determined by [facility]. See Compliance Statement B: [email or web address] Performed By: [facility] [address] [place] [address] Farm Facility Manager: Lynn Layne MD Performed By: #### C BC, PT, PTT, BMP #### [facility] [address] [place] [address] Operations Business Partner: Casey Marques MD #### ANICOT #### [facility] [address] [place] [address] Operations Business Partner: Adolph Diaz MD Nicotine, Bloodon 04-26-2020 [id number] <2 ng/mL [facility], [place] Cotinine <2 ng/mL [facility] [place], [place] Nicotine <2 ng/mL [facility] [place], [place] Comment on above: (NOTE) Consistent with [...] positive. Test developed and characteristics determined by [facility]. See Compliance Statement B: [email or web address] Performed By: [facility] [address] [place] [address] Farm Facility Manager: Lynn Layne MD EKG 12 Leadon 04-23-2020 Atrial Rate 95 BPM [facility], [place] P [place] 14 degrees [facility] P-R Interval 134 ms [facility] Q-T Interval 398 ms [facility] QRS Duration 94 ms [facility] QTc Calculation (Bazett) 500 ms [facility] R [place] 15 degrees [facility] T [place] 32 degrees [facility] Ventricular Rate 95 BPM [facility], [place] Normal sinus rhythm with sinus arrhythmia Prolonged QT Abnormal ECG No previous ECGs available [place], [place] Incoming E kg Results From [facility] - 04/23/2020 12:32 PM EST Normal sinus rhythm with sinus arrhythmia Prolonged QT Abnormal ECG No previous ECGs available [place] APTTon 04-22-2020 aPTT Coag (Bld) [Time] 22.2 s Normal 20.5-30.5 [facility] Comment on above: Result Comment: IV Heparin Therapy Range: 48.6-77.8 Performed By: #### C BC, PT, PTT, BMP #### [facility] [address] [place] [address] Operations Business Partner: Casey Marques MD #### ANICOT #### [facility] [address] [place] [address] Operations Business Partner: Adolph Diaz MD aPTT Coag (Bld) [Time] 22.2 s [place] Comment on above: IV Heparin Therapy Range: 48.6-77.8 Basic Metabolic Panelon Anion gap [Moles/Vol] 12 mmol/L 9 - 17 mmol/L [place] Bun/Cre Ratio NOT REPORTED [place] Calcium [Mass/Vol] 9.2 mg/dL 8.6 - 10. 4 mg/dL [place] Chloride [Moles/Vol] 104 mmol/L 98 - 10 7 mmol/L [place] CO2 [Moles/Vol] 23 mmol/L 20 - 31 mmol/L [place] Creatinine [Mass/Vol] 0.69 mg/dL 0.5 - 0.9 mg/dL [place] GFR >60 >60 mL/min [place] GFR Non- >60 >60 mL/min [place] GFR/1.73 sq M predicted among non-blacks MDRD (S/P/Bld) [Vol rate/Area] NOT REPORTED [place] GFR/1.73 sq M predicted among non-blacks MDRD (S/P/Bld) [Vol rate/Area] [place] Comment on above: Average GFR for 20-2 9 years old: 116 mL/min/1.73sq m Chronic Kidney Disease: <60 mL/min/1.73sq m Kidney failure: <15 mL/min/1.73sq m eGFR calculated using average adult body mass. Additional eGFR calculator available at: http://www.Yub.hipages.com.au/multiple_crcl_2012.htm Glucose [Mass/Vol] 123 mg/dL High 70 - 99 mg/dL [place] Interpretation and review of laboratory results Abnormal [place] Potassium [Moles/Vol] 4.1 mmol/L 3.7 - 5.3 mmol/L [place] Sodium [Moles/Vol] 139 mmol/L 135 - 144 mmol/L [place] Urea nitrogen [Mass/Vol] 7 mg/dL 6 - 20 mg/dL [place] Basic Metabolic Profon 04-22 (cont.) Normal [facility] Comment on above: Result Comment: Aver age GFR for 20-29 years old: 116 mL/min/1.73sq m Chronic Kidney Disease: <60 mL/min/1.73sq m Kidney failure: <15 mL/min/1.73sq m eGFR calculated using average adult body mass. Additional eGFR calculator available at: http://www.Personal On Demand/multiple_crcl_2012.htm Performed By: #### C BC, PT, PTT, BMP #### [facility] [address] [place] [address] [phone] Operations Business Partner: Casey Marques MD #### ANICOT #### [facility] [address] [place] [address] Operations Business Partner: Adolph Diaz MD Anion gap [Moles/Vol] 12 mmol/L Normal 9-17 [facility] Comment on above: Performed By: #### C BC, PT, PTT, BMP #### [facility] [address] [place] [address] Operations Business Partner: Casey Marques MD #### ANICOT #### [facility] [address] [place] [address] Operations Business Partner: Adolph Diaz MD Calcium [Mass/Vol] 9.2 mg/dL Normal 8.6-10.4 [facility] Comment on above: Performed By: #### C BC, PT, PTT, BMP #### [facility] [address] [place] [address] [phone] Operations Business Partner: Casey Marques MD #### ANICOT #### [facility] [address] [place] [address] Operations Business Partner: Adolph Diaz MD Chloride [Moles/Vol] 104 mmol/L Normal 98-107 [facility] Comment on above: Performed By: #### C BC, PT, PTT, BMP #### [facility] [address] [place] [address] Operations Business Partner: Casey Marques MD #### ANICOT #### [facility] [address] [place], [place] [phone] Operations Business Partner: Adolph Diaz MD CO2 [Moles/Vol] 23 mmol/L Normal 20-31 [facility] Comment on above: Performed By: #### C BC, PT, PTT, BMP #### [facility] [address] [place] [address] Operations Business Partner: Casey Marques MD #### ANICOT #### [facility] [address] [place] [address] [phone] Operations Business Partner: Adolph Diaz MD Creatinine [Mass/Vol] 0.69 mg/dL Normal 0.50-0.90 [facility] Comment on above: Performed By: #### C BC, PT, PTT, BMP #### [address] [address] Operations Business Partner: Casey Marques MD #### ANICOT #### [facility] [address] [place], [place] [phone] Operations Business Partner: Adolph Diaz MD GFR, Amer >60 Normal >60 [facility] Comment on above: Performed By: #### C BC, PT, PTT, BMP #### [facility] [address] [place] [address] Operations Business Partner: Casey Marques MD #### ANICOT #### [facility] [address] [place] [address] Operations Business Partner: Adolph Diaz MD GFR,non Amer >60 Normal >60 [facility] Comment on above: Performed By: #### C BC, PT, PTT, BMP #### [facility] [address] Operations Business Partner: Casey Marques MD #### ANICOT #### [facility] [address] [place], [place] [phone] Operations Business Partner: Adolph Diaz MD Glucose [Mass/Vol] 123 mg/dL High 70-99 [facility] Comment on above: Performed By: #### C BC, PT, PTT, BMP #### [address] [address] Operations Business Partner: Casey Marques MD #### ANICOT #### [facility] [address] [place], [place] [phone] Operations Business Partner: Adolph Diaz MD Potassium [Moles/Vol] 4.1 mmol/L Normal 3.7-5.3 [facility] Comment on above: Performed By: #### C BC, PT, PTT, BMP #### [address] [address] Operations Business Partner: Casey Marques MD #### ANICOT #### [facility] [address] [place] [address] [phone] Operations Business Partner: Adolph Diaz MD Sodium [Moles/Vol] 139 mmol/L Normal 135-144 [facility] Comment on above: Performed By: #### C BC, PT, PTT, BMP #### [address] [address] Operations Business Partner: Casey Marques MD #### ANICOT #### [facility] [address] [place] [address] Operations Business Partner: Adolph Diaz MD Urea nitrogen [Mass/Vol] 7 mg/dL Normal 6-20 [facility] Comment on above: Performed By: #### C BC, PT, PTT, BMP #### [facility] [address] [place] [address] Operations Business Partner: Casey Marques MD #### ANICOT #### [facility] [address] [place], [place] [phone] Operations Business Partner: Adolph Diaz MD BUN/CRE Ratio NOT REPORTED Normal - [facility] Comment on above: Performed By: #### C BC, PT, PTT, BMP #### [address] [address] Operations Business Partner: Casey Marques MD #### ANICOT #### [facility] [address] [place], [place] [phone] Operations Business Partner: Adolph Diaz MD Staging: NOT REPORTED Normal [facility] Comment on above: Performed By: #### C BC, PT, PTT, BMP #### [address] [address] Operations Business Partner: Casey Marques MD #### ANICOT #### [facility] [address] [place], [place] [phone] Operations Business Partner: Adolph Diaz MD [facility] 04-22-2020 Erythrocyte distribution width (RBC) [Ratio] 14.6 % High 11.8-14.4 [facility] Comment on above: Performed By: #### C BC, PT, PTT, BMP #### [facility] [address] [place] [address] Operations Business Partner: Casey Marques MD #### ANICOT #### [facility] [address], [place] [id number] Operations Business Partner: Adolph Diaz MD Hematocrit (Bld) [Volume fraction] 40.8 % Normal 36.3-47.1 [facility] Comment on above: Performed By: #### C BC, PT, PTT, BMP #### [facility] [address] [place] [address] Operations Business Partner: Casey Marques MD #### ANICOT #### [facility] [address] [place] [address] Operations Business Partner: Adolph Diaz MD Hemoglobin (Bld) [Mass/Vol] 12.8 g/dL Normal 11.9-15.1 [facility] Comment on above: Performed By: #### C BC, PT, PTT, BMP #### [address] [address] Operations Business Partner: Casey Marques MD #### ANICOT #### [facility] [address] [place] [address] Operations Business Partner: Adolph Diaz MD MCH (RBC) [Entitic mass] 26.5 pg Normal 25.2-33.5 [facility] Comment on above: Performed By: #### C BC, PT, PTT, BMP #### [address] [address] Operations Business Partner: Casey Marques MD #### ANICOT #### [address] [address] Operations Business Partner: Adolph Diaz MD MCHC (RBC) [Mass/Vol] 31.4 g/dL Normal 28.4-34.8 [facility] Comment on above: Performed By: #### C BC, PT, PTT, BMP #### [address] [address] Operations Business Partner: Casey Marques MD #### ANICOT #### [facility] [address] [place] [address] Operations Business Partner: Adolph Diaz MD MCV (RBC) [Entitic vol] 84.5 fL Normal 82.6-102.9 [facility] Comment on above: Performed By: #### C BC, PT, PTT, BMP #### [facility] [address] [place] [address] Operations Business Partner: Casey Marques MD #### ANICOT #### [facility] [address] [place] [address] Operations Business Partner: Adolph Diaz MD NRBC Automated 0.0 per 100 WBC Normal 0.0 [facility] Comment on above: Performed By: #### C BC, PT, PTT, BMP #### [address] [id number] Operations Business Partner: Casey Marques MD #### ANICOT #### [facility] [address], [place] [id number] Operations Business Partner: Adolph Diaz MD Platelet mean volume (Bld) [Entitic vol] 8.7 fL Normal 8.1-13.5 [facility] Comment on above: Performed By: #### C BC, PT, PTT, BMP #### [place] [address] Operations Business Partner: Casey Marques MD #### ANICOT #### [facility] [address] [place] [address] Operations Business Partner: Adolph Diaz MD Platelets (Bld) [#/Vol] 298 10*3/uL Normal 138-453 [facility] Comment on above: Performed By: #### C BC, PT, PTT, BMP #### [address] [address] Operations Business Partner: Casey Marques MD #### ANICOT #### [facility] [address] [place] [address] Operations Business Partner: Adolph Diaz MD RBC (Bld) [#/Vol] 4.83 10*6/uL Normal 3.95-5.11 [facility] Comment on above: Performed By: #### C BC, PT, PTT, BMP #### [address] [place] [address] Operations Business Partner: Casey Marques MD #### ANICOT #### [facility] [address] [place] [address] Operations Business Partner: Adolph Diaz MD WBC (Bld) [#/Vol] 10.8 10*3/uL Normal 3.5-11.3 [facility] Comment on above: Performed By: #### C BC, PT, PTT, BMP #### [facility] [address], [place] [phone] Operations Business Partner: Casey Marques MD #### ANICOT #### [facility] [address] [place] [address] Operations Business Partner: Adolph Diaz MD Erythrocyte distribution width (RBC) [Ratio] 14.6 % High 11.8 - 14.4 % [place], [place] Hematocrit (Bld) [Volume fraction] 40.8 % 36.3 - 47.1 % [place], [place] Hemoglobin (Bld) [Mass/Vol] 12.8 g/dL 11.9 - 15.1 g/dL [place] Interpretation and review of laboratory results Abnormal [place] MCH (RBC) [Entitic mass] 26.5 pg 25.2 - 33.5 pg [place] MCHC (RBC) [Mass/Vol] 31.4 g/dL 28.4 - 34.8 g/dL [place] MCV (RBC) [Entitic vol] 84.5 fL 82.6 - 102.9 fL [place] Platelet mean volume (Bld) [Entitic vol] 8.7 fL 8.1 - 13.5 fL [place] Platelets (Bld) [#/Vol] 298 10*3/uL [place] RBC (Bld) [#/Vol] 4.83 10*6/uL 3.95 - 5.1 1 m/uL [place] WBC (Bld) [#/Vol] 10.8 10*3/uL [facility] NORMA WBC (Bld) [#/Vol] 0.0 10*3/uL 0.0 per 10 0 [facility]: TWO XRA Y VIEWS OF THE CHEST 04/22/2020 2:46 pm COMPARISON: Baseline examination HISTORY: ORDERING SYSTEM PROVIDED HISTORY: preop gastric bypass [employer] TECHNOLOGIST PROVIDED HISTORY: preop gastric bypass Ben En Y Reason for Exam: preop gastric bypass FINDINGS: Normal cardiopericardial silhouette There are no significant pleural, parenchymal, mediastinal or osseous findings [place], [place] Julius, [facility] Incoming Radiant Results From [employer] - 04/22/2020 3:28 PM EST EXAMINATION: TWO XRAY VIEWS OF THE CHEST 04/22/2020 2:46 pm COMPARISON: Baseline examination HISTORY: ORDERING SYSTEM PROVIDED HISTORY: preop gastric bypass Ben En Y TECHNOLOGIST PROVIDED HISTORY: preop gastric bypass Ben En Y Reason for Exam: preop gastric bypass FINDINGS: Normal cardiopericardial silhouette There are no significant pleural, parenchymal, mediastinal or osseous findings IMPRESSION: No acute cardiopulmonary findings [facility] [place] PTon 04-22-2020 INR Coag (PPP) [Relative time] 0.9 {INR} Normal [facility] Comment on above: Result Comment: Therapeutic Range: Moderate Anticoagulant Intensity: INR = 2.0-3.0 High Anticoagulant Intensity: INR = 2.5-3.5 Performed By: #### C BC, PT, PTT, BMP #### [facility] [address] [place] [address] Operations Business Partner: Casey Marques MD #### ANICOT #### [facility] [address] [place] [address] Operations Business Partner: Adolph Diaz MD PT Coag (PPP) [Time] 9.3 s Normal 9.0-12.0 [facility] Comment on above: Performed By: #### C BC, PT, PTT, BMP #### [facility] [address] [place] [address] Operations Business Partner: Casey Marques MD #### ANICOT #### [facility] [address] [place] [address] Operations Business Partner: Adolph Diaz MD [employer] 04-22-2020 INR Coag (PPP) [Relative time] 0.9 {INR} [place] Comment on above: Therapeutic Range: Moderate Anticoagulant Intensity: INR = 2.0-3.0 High Anticoagulant Intensity: INR = 2.5-3.5 PT Coag (PPP) [Time] 9.3 s [place], [place] XR CHEST (2 VW)on 04-22-2020 XR [...] MD 04/22/20 Final result Normal [facility] Vital Signs Date Time Vital Sign Value Performing Clinician Sonal lerma 11-20-2024 10:37-0400 Body weight 116.1216 kg Amanda Ford APRN Work Phone: [facility] 11-20-2024 09:10-0400 Body mass index (BMI) [Ratio] 35.7 kg/m2 Les Juan DO Work Phone: [facility] 11-20-2024 09:10-0400 Body weight 116.12 kg Les Juan DO Work Phone: [facility] 11-20-2024 09:10-0400 Diastolic blood pressure 64 mm[Hg] Les Juan DO Work Phone: [facility] 11-20-2024 09:10-0400 Systolic blood pressure 114 mm[Hg] Les Juan DO Work Phone: [facility] 10-22-2024 11:28-0400 Body mass index (BMI) [Ratio] 31.24 kg/m2 Les Juan DO Work Phone: [facility] 10-22-2024 11:28-0400 Body weight 101.61 kg Les Juan DO Work Phone: [facility] 10-22-2024 11:28-0400 Diastolic blood pressure 62 mm[Hg] Les Juan DO Work Phone: [facility] 10-22-2024 11:28-0400 Systolic blood pressure 110 mm[Hg] Les Juan DO Work Phone: [facility] 10-18-2024 13:34-0400 Diastolic blood pressure 71 mm[Hg] Amanda Ford CARDROOM SUPERVISOR Work Phone: [facility] 10-18-2024 13:34-0400 Heart rate 60 /min Amanda Ford CARDROOM SUPERVISOR Work Phone: [facility] 10-18-2024 13:34-0400 Respiratory rate 18 /min Amanda Ford CARDROOM SUPERVISOR Work Phone: [facility] 10-18-2024 13:34-0400 SaO2% (BldA) [Mass fraction] 99 % Amanda Ford CARDROOM SUPERVISOR Work Phone: [facility] 10-18-2024 13:34-0400 Systolic blood pressure 112 mm[Hg] Amanda Ford CARDROOM SUPERVISOR Work Phone: [facility] 10-18-2024 10:38-0400 Body height 180.34 cm Amanda Ford APRN Work Phone: [facility] 10-18-2024 10:38-0400 Body temperature 98.1 [degF] Amanda Ford CARDROOM SUPERVISOR Work Phone: [facility] 10-18-2024 10:38-0400 Body weight 106.85 kg Amanda Ford APRN Work Phone: [facility] 09-20-2024 15:06-0400 Body mass index (BMI) [Ratio] 31.24 kg/m2 [facility] Nurse [facility] 09-20-2024 15:06-0400 Body weight 101.61 kg [facility] Nurse [facility] 09-20-2024 15:06-0400 Diastolic blood pressure 74 mm[Hg] [facility] Nurse [facility] 09-20-2024 15:06-0400 Systolic blood pressure 122 mm[Hg] [facility] Nurse [facility] 08-22-2024 10:04-0400 Body height 180.3 cm Darleen Sinclair MD Work Phone: [facility] 08-22-2024 10:04-0400 Body mass index (BMI) [Ratio] 29.99 kg/m2 Darleen Sinclair MD Work Phone: [facility] 08-22-2024 10:04-0400 Body weight 97.52 kg Darleen Sinclair MD Work Phone: [facility] 08-22-2024 10:04-0400 Diastolic blood pressure 56 mm[Hg] Darleen Sinclair MD Work Phone: [facility] 08-22-2024 10:04-0400 Heart rate 67 /min Darleen Sinclair MD Work Phone: [facility] 08-22-2024 10:04-0400 Respiratory rate 16 /min Darleen Sinclair MD Work Phone: [facility] 08-22-2024 10:04-0400 SaO2% (BldA) [Mass fraction] 99 % Darleen Sinclair MD Work Phone: [facility] 08-22-2024 10:04-0400 Systolic blood pressure 124 mm[Hg] Darleen Sinclair MD Work Phone: [facility] 04-26-2024 08:32-0500 Body height 180.34 cm [facility] 04-26-2024 08:32-0500 Body mass index (BMI) [Ratio] 30.4 kg/m2 [facility] 04-26-2024 08:32-0500 Body temperature 97.3 [degF] [facility] 04-26-2024 08:32-0500 Body weight 98.99 kg [facility] 04-26-2024 08:32-0500 Diastolic blood pressure 60 mm[Hg] [facility] 04-26-2024 08:32-0500 Heart rate 73 /min [facility] 04-26-2024 08:32-0500 SaO2% (BldA) [Mass fraction] 98 % [facility] 04-26-2024 08:32-0500 Systolic blood pressure 112 mm[Hg] [facility] 02-28-2024 14:03-0500 Body height 180.3 cm Ignacio Guy MD Work Phone: [facility] 02-28-2024 14:03-0500 Body mass index (BMI) [Ratio] 30.23 kg/m2 Ignacio Guy MD Work Phone: [facility] 02-28-2024 14:03-0500 Body weight 98.3 kg Ignacio Guy MD Work Phone: [facility] 02-20-2024 15:12-0500 Body mass index (BMI) [Ratio] 31.71 kg/m2 Les Juan DO Work Phone: [facility] 02-20-2024 15:12-0500 Body weight 100.25 kg Les Juan DO Work Phone: [facility] 02-20-2024 15:12-0500 Diastolic blood pressure 68 mm[Hg] Les Juan DO Work Phone: [facility] 02-20-2024 15:12-0500 Systolic blood pressure 118 mm[Hg] Les Juan DO Work Phone: [facility] 12-07-2023 11:46-0400 Diastolic blood pressure 67 mm[Hg] MELY Ford Work Phone: [facility] 12-07-2023 11:46-0400 Heart rate 76 /min CARDROOM SUPERVISOR Amanda Rosarioacher Work Phone: [facility] 12-07-2023 11:46-0400 Respiratory rate 16 /min CARDROOM SUPERVISOR Amanda Merylrbacher Work Phone: [facility] 12-07-2023 11:46-0400 SaO2% (BldA) [Mass fraction] 99 % CARDROOM SUPERVISOR Amanda Merylrbacher Work Phone: [facility] 12-07-2023 11:46-0400 Systolic blood pressure 149 mm[Hg] CARDROOM SUPERVISOR Amanda Rosarioacher Work Phone: [facility] 12-07-2023 10:20-0400 Body temperature 98 [degF] CARDROOM SUPERVISORTanja MittalAmanda Rosarioacher Work Phone: [facility] 12-07-2023 09:55-0400 Inhaled oxygen flow rate 3 L/min CARDROOM SUPERVISOR Amanda Merylrbacher Work Phone: [facility] 12-07-2023 06:29-0400 Body height 180.34 cm CARDROOM SUPERVISOR Amanda Merylsarahacher Work Phone: [facility] 12-07-2023 06:29-0400 Body weight 95.25 kg CARDROOM SUPERVISORTanja MittalAmanda Rosarioacher Work Phone: [facility] 11-01-2023 11:56-0400 Body height 180.34 cm CARDROOM SUPERVISOR Amanda Merylrbacher Work Phone: [facility] 11-01-2023 11:56-0400 Body mass index (BMI) [Ratio] 28.8 kg/m2 CARDROOM SUPERVISOR Amanda Merylrbacher Work Phone: [facility] 11-01-2023 11:56-0400 Body weight 93.89 kg CARDROOM SUPERVISORTanja BecerraAmanda Rosarioacher Work Phone: [facility] 06-08-2023 14:56-0500 Body height 180.34 cm [facility] 06-08-2023 14:56-0500 Body mass index (BMI) [Ratio] 29.4 kg/m2 [facility] 06-08-2023 14:56-0500 Body weight 95.7 kg [facility] 06-08-2023 14:56-0500 Diastolic blood pressure 68 mm[Hg] [facility] 06-08-2023 14:56-0500 Heart rate 51 /min [facility] 06-08-2023 14:56-0500 SaO2% (BldA) [Mass fraction] 98 % [facility] 06-08-2023 14:56-0500 Systolic blood pressure 122 mm[Hg] [facility] 05-17-2023 14:30-0500 Body height 180.34 cm Romeo Esther Other [facility] 05-17-2023 14:30-0500 Body mass index (BMI) [Ratio] 27.47 kg/m2 Romeo Esther Other [facility] Other 05-17-2023 14:30-0500 Body weight 89.36 kg Romeo Millerley Other [facility] Other 05-17-2023 14:30-0500 Body weight 89.35 kg [facility] 02-07-2023 14:30-0400 Body height 180.34 cm Petr Lay Other [facility] Other 02-07-2023 14:30-0400 Body mass index (BMI) [Ratio] 27.61 kg/m2 Petr Lay Other [facility] Other 02-07-2023 14:30-0400 Body temperature 98.1 [degF] Petr aLy Other [facility] Other 02-07-2023 14:30-0400 Body weight 89.81 kg Petr Lay Other [facility] Other 02-07-2023 14:30-0400 Diastolic blood pressure 76 mm[Hg] Petr Lay Other [facility] Other 02-07-2023 14:30-0400 SaO2% (BldA) [Mass fraction] 99 % Petr Lay Other [facility] Other 02-07-2023 14:30-0400 Systolic blood pressure 128 mm[Hg] Petr Lay Other [facility] Other 12-27-2022 11:30-0400 Body height 180.34 cm Petr Lay Other [facility] Other 12-27-2022 11:30-0400 Body mass index (BMI) [Ratio] 28.03 kg/m2 Petr Lay Other [facility] Other 12-27-2022 11:30-0400 Body weight 91.17 kg Petr Lay Other [facility] Other 12-27-2022 11:30-0400 Diastolic blood pressure 64 mm[Hg] Petr Lay Other [facility] Other 12-27-2022 11:30-0400 Respiratory rate 18 /min Petr Lay Other [facility] Other 12-27-2022 11:30-0400 SaO2% (BldA) [Mass fraction] 99 % Petr Lay Other [facility] Other 12-27-2022 11:30-0400 Systolic blood pressure 128 mm[Hg] Petr Alireza Other [facility] Other 10-11-2022 13:30-0400 Body height 180.34 cm Petr Alireza Other [facility] Other 10-11-2022 13:30-0400 Body mass index (BMI) [Ratio] 28.78 kg/m2 Petr Alireza Other [facility] Other 10-11-2022 13:30-0400 Body weight 93.62 kg Petr Alireza Other [facility] Other 10-11-2022 13:30-0400 Diastolic blood pressure 78 mm[Hg] Petr Lay Other [facility] Other 10-11-2022 13:30-0400 Respiratory rate 18 /min Petr Alireza Other [facility] Other 10-11-2022 13:30-0400 SaO2% (BldA) [Mass fraction] 98 % Petr Lay Other [facility] Other 10-11-2022 13:30-0400 Systolic blood pressure 122 mm[Hg] Petr Lay Other [facility] Other 09-30-2022 08:00-0400 Body height 180.34 cm Amanda Ford Other [facility] Other 09-30-2022 08:00-0400 Body mass index (BMI) [Ratio] 28.03 kg/m2 Amanda Ricci [facility] Other 09-30-2022 08:00-0400 Body weight 91.17 kg Amanda Hahnr Other [facility] Other 09-30-2022 08:00-0400 Diastolic blood pressure 84 mm[Hg] Amanda Ponceacher Other [facility] Other 09-30-2022 08:00-0400 SaO2% (BldA) [Mass fraction] 95 % Amanda Hahnr Other [facility] Other 09-30-2022 08:00-0400 Systolic blood pressure 126 mm[Hg] Amanda Ponceacher Other [facility] Other 08-25-2022 15:30-0400 Body height 180.34 cm Amanda Hahnr Other [facility] Other 08-25-2022 15:30-0400 Body mass index (BMI) [Ratio] 29.15 kg/m2 Amanda Hahnr Other [facility] Other 08-25-2022 15:30-0400 Body weight 94.8 kg Amanda Hahnr Other [facility] Other 08-25-2022 15:30-0400 Diastolic blood pressure 77 mm[Hg] Amanda Ponceacher Other [facility] Other 08-25-2022 15:30-0400 Systolic blood pressure 126 mm[Hg] Amanda Ponceacher Other [facility] Other 08-20-2022 11:00-0400 Body height 180.34 cm Amanda Shethbilly Other [facility] Other 08-20-2022 11:00-0400 Body mass index (BMI) [Ratio] 28.73 kg/m2 Amanda Logan Other [facility] Other 08-20-2022 11:00-0400 Body weight 93.44 kg Amanda Shethbilly Other [facility] Other 08-20-2022 11:00-0400 Diastolic blood pressure 72 mm[Hg] Amanda Logan Other [facility] Other 08-20-2022 11:00-0400 SaO2% (BldA) [Mass fraction] 100 % Amanda Logan Other [facility] Other 08-20-2022 11:00-0400 Systolic blood pressure 118 mm[Hg] Amanda Logan Other [facility] Other 06-11-2022 16:43-0500 Body temperature 98.1 [degF] MD Robin Appiah Work Phone: [facility] 06-11-2022 16:43-0500 Diastolic blood pressure 56 mm[Hg] MD Robin Appiah Work Phone: [facility] 06-11-2022 16:43-0500 Heart rate 60 /min MD Robin Appiah Work Phone: [facility] 06-11-2022 16:43-0500 Respiratory rate 16 /min MD Robin Appiah Work Phone: [facility] 06-11-2022 16:43-0500 SaO2% (BldA) [Mass fraction] 100 % MD Robin Appiah Work Phone: [facility] 06-11-2022 16:43-0500 Systolic blood pressure 102 mm[Hg] MD Robin Appiah Work Phone: [facility] 06-11-2022 09:40-0500 Body height 180.34 cm MD Robin Appiah Work Phone: [facility] 06-11-2022 05:42-0500 Body weight 93 kg MD Robin Appiah Work Phone: [facility] 06-10-2022 17:55-0500 Body temperature 98.1 [degF] MD Robin Appiah Work Phone: [facility] 06-10-2022 17:55-0500 Diastolic blood pressure 56 mm[Hg] MD Robin Appiah Work Phone: [facility] 06-10-2022 17:55-0500 Heart rate 62 /min MD Robin Appiah Work Phone: [facility] 06-10-2022 17:55-0500 Respiratory rate 18 /min MD Robin Appiah Work Phone: [facility] 06-10-2022 17:55-0500 SaO2% (BldA) [Mass fraction] 100 % MD Robin Appiah Work Phone: [facility] 06-10-2022 17:55-0500 Systolic blood pressure 122 mm[Hg] MD Robin Appiah Work Phone: [facility] 06-10-2022 14:22-0500 Body height 180.34 cm MD Robin Appiah Work Phone: [facility] 06-10-2022 14:22-0500 Body weight 92.7 kg MD Robin Appiah Work Phone: [facility] 04-21-2022 15:00-0500 Body height 180.34 cm Amanda Logan Other [facility] Other 04-21-2022 15:00-0500 Body mass index (BMI) [Ratio] 27.81 kg/m2 Amanda Logan Other [facility] Other 04-21-2022 15:00-0500 Body temperature 98.2 [degF] Amanda Logan Other [facility] Other 04-21-2022 15:00-0500 Body weight 90.45 kg Amanda Shethbilly Other [facility] Other 04-21-2022 15:00-0500 Diastolic blood pressure 68 mm[Hg] Amanda Logan Other [facility] Other 04-21-2022 15:00-0500 Respiratory rate 18 /min Amanda Logan Other [facility] Other 04-21-2022 15:00-0500 SaO2% (BldA) [Mass fraction] 99 % Amanda Logan Other [facility] Other 04-21-2022 15:00-0500 Systolic blood pressure 111 mm[Hg] Amanda Ford Other [facility] Other 04-10-2022 21:41-0500 Diastolic blood pressure 56 mm[Hg] MD Robin Appiah Work Phone: [facility] 04-10-2022 21:41-0500 Systolic blood pressure 112 mm[Hg] MD Robin Appiah Work Phone: [facility] 04-10-2022 18:14-0500 Body height 180.34 cm MD Robin Appiah Work Phone: [facility] 04-10-2022 18:14-0500 Body temperature 98.1 [degF] MD Robin Appiah Work Phone: [facility] 04-10-2022 18:14-0500 Body weight 88 kg MD Robin Appiah Work Phone: [facility] 04-10-2022 18:14-0500 Heart rate 119 /min MD Robin Appiah Work Phone: [facility] 04-10-2022 18:14-0500 Respiratory rate 18 /min MD Robin Appiah Work Phone: [facility] 04-10-2022 18:14-0500 SaO2% (BldA) [Mass fraction] 100 % MD Robin Appiah Work Phone: [facility] 04-08-2022 17:15-0500 Body temperature 97.5 [degF] MD Robin Appiah Work Phone: [facility] 04-08-2022 17:15-0500 Diastolic blood pressure 59 mm[Hg] MD Robin Appiah Work Phone: [facility] 04-08-2022 17:15-0500 Heart rate 59 /min MD Robin Appiah Work Phone: [facility] 04-08-2022 17:15-0500 Respiratory rate 18 /min MD Robin Appiah Work Phone: [facility] 04-08-2022 17:15-0500 SaO2% (BldA) [Mass fraction] 100 % MD Robin Appiah Work Phone: [facility] 04-08-2022 17:15-0500 Systolic blood pressure 128 mm[Hg] MD Robin Appiah Work Phone: [facility] 04-08-2022 14:33-0500 Body height 180.34 cm MD Robin Appiah Work Phone: [facility] 04-08-2022 14:33-0500 Body weight 88.1 kg MD Robin Appiah Work Phone: [facility] 03-23-2022 15:30-0500 Body height 180.34 cm Amanda Ford Other [facility] Other 03-23-2022 15:30-0500 Body mass index (BMI) [Ratio] 27.05 kg/m2 Amanda Ford Other [facility] Other 03-23-2022 15:30-0500 Body weight 88 kg Amanda Ford Other [facility] Other 03-23-2022 15:30-0500 Diastolic blood pressure 82 mm[Hg] Amanda Ford Other [facility] Other 03-23-2022 15:30-0500 SaO2% (BldA) [Mass fraction] 98 % Amanda Ford Other [facility] Other 03-23-2022 15:30-0500 Systolic blood pressure 137 mm[Hg] Amanda Ford Other [facility] Other 02-08-2022 10:00-0400 Body height 180.34 cm Amanda Ford Other [facility] Other 02-08-2022 10:00-0400 Body mass index (BMI) [Ratio] 27.47 kg/m2 Amanda Ford Other [facility] Other 02-08-2022 10:00-0400 Body weight 89.36 kg Amanda Logan Other [facility] Other 02-08-2022 10:00-0400 Diastolic blood pressure 62 mm[Hg] Amanda Logan Other [facility] Other 02-08-2022 10:00-0400 Systolic blood pressure 110 mm[Hg] Amanda Logan Other [facility] Other 09-01-2021 14:38-0400 Blood Pressure Location Samir Jaimeofferson [facility] 09-01-2021 14:38-0400 Diastolic blood pressure 61 mm[Hg] Samir Christofferson [facility] 09-01-2021 14:38-0400 Heart rate 61 /min Samir Christofferson [facility] 09-01-2021 14:38-0400 Respiratory rate 18 /min Samir Christofferson [facility] 09-01-2021 14:38-0400 SaO2% (BldA) [Mass fraction] 100 % Samir Christofferson [facility] 09-01-2021 14:38-0400 Systolic blood pressure 103 mm[Hg] Samir Christofferson [facility] 07-24-2021 14:39-0400 Blood Pressure Location Samir Christofferson [facility] 07-24-2021 14:39-0400 Diastolic blood pressure 77 mm[Hg] Samir Christofferson [facility] 07-24-2021 14:39-0400 Heart rate 65 /min [facility] [facility] 07-24-2021 14:39-0400 Respiratory rate 18 /min Samir Thompson [facility] 07-24-2021 14:39-0400 SaO2% (BldA) [Mass fraction] 100 % Samir Thompson [facility] 07-24-2021 14:39-0400 Systolic blood pressure 115 mm[Hg] Samir Thompson [facility] 07-16-2021 11:00-0400 Body height 180.34 cm Amanda Ford Other [facility] Other 07-16-2021 11:00-0400 Body mass index (BMI) [Ratio] 29.15 kg/m2 Amanda Ford Other [facility] Other 07-16-2021 11:00-0400 Body weight 94.8 kg Amanda Ford Other [facility] Other 07-16-2021 11:00-0400 Diastolic blood pressure 64 mm[Hg] Amanda Ford Other [facility] Other 07-16-2021 11:00-0400 SaO2% (BldA) [Mass fraction] 98 % Amanda Ford Other [facility] Other 07-16-2021 11:00-0400 Systolic blood pressure 102 mm[Hg] Amanda Ford Other [facility] Other 05-08-2020 08:20-0500 Body Temperature 97.7 [degF] [facility] [place] 05-08-2020 08:20-0500 BP Diastolic 89 mm[Hg] Rashard [facility] [place] 05-08-2020 08:20-0500 BP Systolic 156 mm[Hg] [facility] [place] 05-08-2020 08:20-0500 Pulse (Heart Rate) 101 /min Rashard [facility], [place] 05-08-2020 08:20-0500 Pulse Oximetry 96 % Rashard [facility] [place] 05-08-2020 08:20-0500 Respiratory Rate 19 /min Rashard [facility] 05-06-2020 08:51-0500 BMI (Body Mass Index) 58.86 kg/m2 Rashard [facility] 05-06-2020 08:51-0500 [facility] [place] 05-06-2020 08:51-0500 [facility] [place] 04-22-2020 13:30-0500 BMI (Body Mass Index) 61.79 kg/m2 [address], [place] 04-22-2020 13:30-0500 Body Temperature 97.11 [degF] [address], [place] 04-22-2020 13:30-0500 Body weight 200.[address] , [place] 04-22-2020 13:30-0500 BP Diastolic 90 mm[Hg] [address] , [place] 04-22-2020 13:30-0500 BP Systolic 148 mm[Hg] [address] , [place] 04-22-2020 13:30-0500 Height 180.[address] , [place] 04-22-2020 13:30-0500 Pulse (Heart Rate) 104 /min [address], [place] 04-22-2020 13:30-0500 Pulse Oximetry 97 % [address] , [place] 04-22-2020 13:30-0500 Respiratory Rate 18 /min Stvz 2 [facility] [place] Encounters Encounter Date Encounter Type Care Provider Facility Start: 11-30-2024 End: 11-30-2024 ambulatory Amanda Logan BOONE Work Phone: [facility] Work Phone: Start: 11-30-2024 End: 11-30-2024 Departed Referred Chris Chapman DO -[facility] Start: 11-30-2024 Non-patient / Non-visit Chris Chapman DO -[facility] Work Phone: Start: 11-20-2024 End: 11-20-2024 Bamboo flowsheet Les Juan DO Work Phone: [facility] Start: 11-20-2024 End: 11-21-2024 Bamboo flowsheet Les Juan DO Work Phone: [facility] Start: 11-20-2024 End: 11-20-2024 Clinisync Result Encounter Les Juan DO Work Phone: [facility] Unsolicited Start: 11-20-2024 End: 11-21-2024 External Result Encounter Les Juan DO Work Phone: [facility] Unsolicited Start: 11-20-2024 Non-patient / Non-visit Les Juan -[facility] Work Phone: Start: 11-20-2024 End: 11-20-2024 Patient encounter procedure Les Juan DO Work Phone: [facility] Start: 11-20-2024 End: 11-20-2024 Periodic preventive med est patient 18-39 yrs Les Juan DO Work Phone: [facility] Comment on above: Well woman exam with routine gynecological exam; Exposure to STD; Second trimester (HHS-HCC); 18 weeks gestation of (HHS-HCC); Need for maternal serum alpha-protein (MSAFP) screening ([facility]); Screening, , for anatomic survey ([facility]); Thyroid disease Start: 11-20-2024 End: 11-20-2024 ambulatory LES JUAN Not Available Start: 11-17-2024 Non-patient / Non-visit Chris Chapman DO -[facility] Work Phone: Start: 10-26-2024 End: 10-26-2024 Orders Only Not In System Ref Prov [facility] Start: 10-22-2024 End: 10-22-2024 Office outpatient visit 15 minutes Les Juan DO Work Phone: [facility] Comment on above: 13 weeks gestation o f ([facility]); Second trimester ([facility]); Thyroid disease ; H/O gastric sleeve; H/O iron deficiency anemia; resulting from in vitro fertilization in first trimester ([facility]) Start: 10-22-2024 End: 10-22-2024 ambulatory LES JUAN Not Available Start: 10-18-2024 End: 10-18-2024 Emergency department patient visit Amanda Ford CARDROOM SUPERVISOR Work Phone: -Emergency Room Work Phone: Start: 10-10-2024 End: 10-10-2024 Clinisync Result Encounter Les Juan DO Work Phone: [facility] External [facility] Unsolicited Start: 10-10-2024 End: 10-10-2024 Clinisync Result Encounter Les Juan DO Work Phone: [facility] External [facility] Unsolicited Start: 09-26-2024 End: 09-26-2024 ambulatory Amanda Ford Facility:[facility] Start: 09-20-2024 End: 09-20-2024 Office outpatient visit 5 minutes [facility] Juan Nurse [facility] Comment on above: GA: 9w2d Start: 09-20-2024 End: 09-20-2024 ambulatory DARLEEN SINCLAIR Not Available Start: 09-03-2024 End: 09-03-2024 Nursing evaluation of patient and report Us Tech 1 [facility] Rej Work Phone: [facility]ductive Endocrinology Infertility Comment on above: Early stage of pregn paulo ([facility]) Start: 09-03-2024 End: 09-03-2024 ambulatory SHELLY Yecenia HERNANDEZ Facility:[facility] Start: 08-28-2024 End: 08-28-2024 Nursing evaluation of patient and report Us Tech 2 [facility] Beac Work Phone: Reproductive Endocrinology Infertility Comment on above: resulting from assisted reproductive technology in first trimester ([facility]) Start: 08-28-2024 End: 08-28-2024 ambulatory SHELLY Yecenia DAVID Facility:[facility] Start: 08-24-2024 End: 08-24-2024 Telephone encounter Shelly Hernandez APRN.YOUTH DEVELOPMENT PROFESSIONAL Work Phone: Reproductive Endocrinology Infertility Comment on above: Patient Question Start: 08-23-2024 End: 08-24-2024 Telephone encounter Shelly Hernandez APRN.YOUTH DEVELOPMENT PROFESSIONAL Work Phone: Reproductive Endocrinology Infertility Comment on above: Pain Start: 08-22-2024 End: 08-22-2024 Bamboo flowsheet Darleen Sinclair MD Work Phone: [facility] Start: 08-22-2024 End: 08-22-2024 Bamboo flowsheet Darleen Sinclair MD Work Phone: [facility] Start: 08-22-2024 End: 08-22-2024 Office outpatient visit 25 minutes Darleen Sinclair MD Work Phone: [facility] Comment on above: Abnormal thyroid fun ction test (Primary Dx); H/O gastric bypass; 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[facility]); Vitamin D deficiency Start: 08-22-2024 End: 08-22-2024 ambulatory DARLEEN SINCLAIR Not Available Start: 08-20-2024 End: 08-20-2024 Telemedicine consultation with patient Shellymiriam Hernandez CARDROOM SUPERVISOR.YOUTH DEVELOPMENT PROFESSIONAL Work Phone: Reproductive Endocrinology Infertility Start: 08-20-2024 End: 08-20-2024 ambulatory Shelly Hernandez CARDROOM SUPERVISOR.YOUTH DEVELOPMENT PROFESSIONAL Work Phone: Reproductive Endocrinology Infertility Comment on above: 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) (Primary Dx) Start: 08-18-2024 End: 08-23-2024 ambulatory Shelly Hernandez CARDROOM SUPERVISOR.YOUTH DEVELOPMENT PROFESSIONAL Work Phone: Reproductive Endocrinology Infertility Comment on above: Ultrasound Start: 08-17-2024 End: 08-17-2024 ambulatory Amanda Ford Facility:[facility] Start: 08-16-2024 End: 08-16-2024 Telephone encounter Shelly Hernandez CARDROOM SUPERVISOR.YOUTH DEVELOPMENT PROFESSIONAL Work Phone: Reproductive Endocrinology Infertility Comment on above: positive for pregnan cy Start: 08-15-2024 End: 08-15-2024 Telephone encounter Shelly Hernandez CARDROOM SUPERVISOR.YOUTH DEVELOPMENT PROFESSIONAL Work Phone: Reproductive Endocrinology Infertility Comment on above: Patient Question Start: 08-15-2024 End: 08-15-2024 ambulatory Shellymiriam Hernandez Facility:[facility] Start: 08-13-2024 End: 08-13-2024 ambulatory [facility] Facility:[facility] Start: 07-31-2024 End: 07-31-2024 ambulatory SELF Facility:[facility] Start: 07-31-2024 End: 07-31-2024 Patient encounter procedure Andrology Toll Test Desk Worker Work Phone: [facility] Comment on above: Procreative manageme nt (Primary Dx) Start: 07-30-2024 End: 07-30-2024 Telephone encounter Shelly Hernandez CARDROOM SUPERVISOR.YOUTH DEVELOPMENT PROFESSIONAL Work Phone: Reproductive Endocrinology Infertility Comment on above: Patient Question Start: 07-25-2024 End: 07-25-2024 ambulatory SELF Facility:[facility] Start: 07-07-2024 End: 07-07-2024 ambulatory MIKEY TORRES Facility:[facility] Start: 07-07-2024 End: 07-07-2024 Patient encounter procedure Andrology Toll Test Desk Worker Work Phone: [facility] Comment on above: Procreative manageme nt (Primary Dx) Encounter for artifi cial insemination (Primary Dx) Start: 07-06-2024 End: 07-06-2024 Telephone encounter Shelly Hernandez APRN.YOUTH DEVELOPMENT PROFESSIONAL Work Phone: Reproductive Endocrinology Infertility Comment on above: Patient calling back /re iui 07/07 unsure Start: 07-05-2024 End: 07-06-2024 Telephone encounter Ignacio Guy MD Work Phone: Reproductive Endocrinology Infertility Comment on above: re iui this wknd/has cervical polyp question Start: 07-04-2024 End: 07-04-2024 Telephone encounter Shelly Hernandez APRN.JARROD Work Phone: Reproductive Endocrinology Infertility Comment on above: Treatment Planning Start: 07-04-2024 End: 07-11-2024 ambulatory Shelly Hernandez APRN.YOUTH DEVELOPMENT PROFESSIONAL Work Phone: Reproductive Endocrinology Infertility Comment on above: Ovulating Start: 07-04-2024 End: 07-04-2024 Patient encounter procedure Us Tech 3 [facility] Beac Work Phone: Reproductive Endocrinology Infertility Start: 07-02-2024 End: 07-02-2024 ambulatory SHELLY HERNANDEZ Facility:[facility] Start: 06-29-2024 End: 06-29-2024 ambulatory SHELLY HERNANDEZ Facility:[facility] Start: 06-23-2024 End: 06-29-2024 ambulatory Shelly Hernandez APRN.YOUTH DEVELOPMENT PROFESSIONAL Work Phone: Reproductive Endocrinology Infertility Comment on above: Negative t est and possible hematoma Start: 06-09-2024 End: 06-09-2024 ambulatory IGNACIO GUY Facility:[facility] Start: 06-09-2024 End: 06-09-2024 Patient encounter procedure Andrology Toll Test Desk Worker Work Phone: [facility] Comment on above: Procreative manageme nt (Primary Dx) Female infertility ( Primary Dx) Start: 06-05-2024 End: 06-07-2024 ambulatory Shelly Hernandez CARDROOM SUPERVISOR.YOUTH DEVELOPMENT PROFESSIONAL Work Phone: Rep[facility]ductive Endocrinology Infertility Start: 06-05-2024 End: 06-07-2024 Patient encounter procedure Shelly Hernandez CARDROOM SUPERVISOR.YOUTH DEVELOPMENT PROFESSIONAL Work Phone: Reproductive Endocrinology Infertility Comment on above: IUI appointment Start: 05-22-2024 End: 05-23-2024 ambulatory Shelly Hernandez CARDROOM SUPERVISOR.YOUTH DEVELOPMENT PROFESSIONAL Work Phone: Reproductive Endocrinology Infertility Comment on above: Progesterone results Start: 05-21-2024 End: 05-21-2024 ambulatory Shelly Hernandez Facility:[facility] Start: 05-18-2024 End: 05-18-2024 ambulatory SHELLY HERNANDEZ Facility:[facility] Start: 05-09-2024 End: 05-09-2024 ambulatory Shelly Hernandez CARDROOM SUPERVISOR.YOUTH DEVELOPMENT PROFESSIONAL Work Phone: Reproductive Endocrinology Infertility Comment on above: Reproductive mgmt, 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) Start: 05-09-2024 End: 05-09-2024 Telemedicine consultation with patient Shelly Hernandez CARDROOM SUPERVISOR.YOUTH DEVELOPMENT PROFESSIONAL Work Phone: [facility]ocrinology [facility] Start: 05-06-2024 End: 05-07-2024 ambulatory Shelly Hernandez CARDROOM SUPERVISOR.YOUTH DEVELOPMENT PROFESSIONAL Work Phone: Reproductive Endocrinology Infertility Comment on above: Consent form Start: 05-02-2024 End: 05-02-2024 Telemedicine consultation with patient Saúl Enriquez PhD Work Phone: [facility] Comment on above: Bipolar 1 disorder ( Multi) (Primary Dx); Infertility counseling Start: 05-02-2024 End: 05-02-2024 ambulatory [facility] Nikole [facility] Ambulatory Start: 04-26-2024 End: 04-26-2024 ambulatory [facility] Work Phone: Start: 04-26-2024 End: 04-26-2024 Patient encounter procedure [facility] Work Phone: Start: 04-24-2024 End: 04-24-2024 ambulatory SHELLY HERNANDEZ Facility:[facility] Start: 04-23-2024 End: 04-23-2024 ambulatory [facility] Work Phone: Start: 04-23-2024 End: 04-23-2024 Patient encounter procedure [facility] Physician [facility] Work Phone: Start: 04-02-2024 End: 04-03-2024 ambulatory Shelly Hernandez CARDROOM SUPERVISOR.YOUTH DEVELOPMENT PROFESSIONAL Work Phone: Reproductive Endocrinology Infertility Comment on above: Genetic testing Start: 03-09-2024 End: 03-09-2024 ambulatory Shelly Hernandez CARDROOM SUPERVISOR.YOUTH DEVELOPMENT PROFESSIONAL Work Phone: Reproductive Endocrinology Infertility Comment on above: Reproductive mgmt, 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); Special screening examination for infectious diseases; Encounter for other genetic testing of female for procreative management Start: 03-09-2024 End: 03-09-2024 Telemedicine consultation with patient Shelly Hernandez CARDROOM SUPERVISOR.YOUTH DEVELOPMENT PROFESSIONAL Work Phone: Reproductive Endocrinology Infertility Start: 02-29-2024 End: 02-29-2024 ambulatory SHELLYMIRIAM HERNANDEZ Facility:[facility] Start: 02-28-2024 End: 02-28-2024 ambulatory IGNACIO GUY Facility:[facility] Start: 02-28-2024 End: 02-28-2024 Patient encounter procedure Ignacio Guy MD Work Phone: Reproductive Endocrinology Infertility Comment on above: Encounter for male f actor 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 (Primary Dx) Start: 02-27-2024 End: 02-27-2024 ambulatory Amanda Ford APRN Work Phone: [facility] Work Phone: Start: 02-27-2024 End: 02-27-2024 Patient encounter procedure Amanda Ford APRN Work Phone: [facility] Work Phone: Start: 02-20-2024 Non-patient / Non-visit [facility] Work Phone: Start: 02-20-2024 [...] Department Unsolicited Start: 01-17-2024 End: 01-17-2024 ambulatory CARDROOM SUPERVISORTanja Ford Work Phone: [facility] Work Phone: Start: 01-17-2024 End: 01-17-2024 Patient encounter procedure MELY Ford Work Phone: [facility] [place] [facility] Work Phone: Start: 01-10-2024 Non-patient / Non-visit MELY Ford Work Phone: [facility] Physician [facility] Work Phone: Start: 12-20-2023 End: 12-20-2023 ambulatory MELY Ford Work Phone: [facility] Work Phone: Start: 12-20-2023 End: 12-20-2023 Patient encounter procedure CARDROOM SUPERVISORTanja MittalAmanda Rosarioacher Work Phone: [facility] [place] [facility] Work Phone: Start: 12-09-2023 ambulatory Romeo Santana DO Prakash y:[facility] Start: 12-07-2023 Non-patient / Non-visit CARDROOM SUPERVISORTanja BecerraAmanda Jovanir Work Phone: [facility] [place] [facility] Work Phone: Start: 12-07-2023 End: 12-07-2023 Admission to same day surgery center CARDROOM SUPERVISORTanja BecerraAmanda Logan Work Phone: [facility] [place] Start: 12-07-2023 End: 12-07-2023 ambulatory CARDROOM SUPERVISORTanja Hahnr Work Phone: [facility] Work Phone: Start: 12-01-2023 End: 12-01-2023 ambulatory CARDROOM SUPERVISOR Amanda Rosarioacher Work Phone: [facility] Work Phone: Start: 12-01-2023 End: 12-01-2023 Patient encounter procedure CARDROOM SUPERVISOR Amanda Rosarioacher Work Phone: [facility] Physician [facility] [place] [facility] Work Phone: Start: 11-28-2023 End: 11-28-2023 Patient encounter procedure CARDROOM SUPERVISOR Amanda Rosarioacher Work Phone: [facility] Work Phone: Start: 11-28-2023 End: 11-28-2023 ambulatory CARDROOM SUPERVISOR Amanda Rosarioacher Work Phone: [facility] Work Phone: Start: 11-28-2023 End: 11-28-2023 ambulatory LES JUAN Not Available Start: 11-02-2023 End: 11-02-2023 Emergency department patient visit Amanda Ford Facility:[facility] Start: 11-01-2023 End: 11-01-2023 ambulatory CARDROOM SUPERVISORTanja Patel Logan Work Phone: [facility] Work Phone: Start: 11-01-2023 End: 11-01-2023 Patient encounter procedure CARDROOM SUPERVISOR Amanda Logan Work Phone: [facility] Physician [facility] Work Phone: Start: 10-26-2023 End: 10-26-2023 ambulatory MELY Patel Logan Work Phone: [facility] Work Phone: Start: 10-26-2023 End: 10-26-2023 Patient encounter procedure CARDROOM SUPERVISOR Amanda Logan Work Phone: [facility] Work Phone: Start: 10-13-2023 End: 10-13-2023 ambulatory [facility] Work Phone: Start: 10-13-2023 End: 10-13-2023 Patient encounter procedure [facility] Physician [facility] [place] [facility] Work Phone: Start: 09-15-2023 Non-patient / Non-visit [facility] Physician [facility] Professional [employer] Work Phone: Start: 06-08-2023 End: 06-08-2023 ambulatory [facility] Work Phone: Start: 06-08-2023 End: 06-08-2023 Patient encounter procedure [facility] Physician [facility] Work Phone: Start: 05-17-2023 End: 05-17-2023 ambulatory Amanda Ford Other [facility] Other Start: 05-17-2023 Office outpatient visit 15 minutes Romeo Santana [facility] [place] [facility] Start: 05-17-2023 Telephone encounter Amanda Gonzales her [facility] Start: 05-17-2023 End: 05-17-2023 Patient encounter procedure [facility]- Start: 04-28-2023 End: 04-28-2023 ambulatory Amanda Shethsarahsudhakar Other [facility] Other Start: 04-28-2023 Telephone encounter Amnada Gonzales her [facility] Start: 04-22-2023 End: 04-22-2023 ambulatory Amanda Rosariosudhakar Other [facility] Other Start: 04-22-2023 Telephone encounter Amanda Gonzales her [facility] Start: 04-19-2023 End: 04-19-2023 ambulatory Amanda Lgoan Other [facility] Other Start: 04-19-2023 Telephone encounter Amanda Gonzales her [facility] [address] Start: 04-14-2023 End: 04-14-2023 ambulatory Amanda Shethsarahsudhakar Other [facility] Other Start: 04-14-2023 Telephone encounter Amanda Gonzales her [facility] Start: 03-17-2023 End: 03-17-2023 ambulatory Romeo Santana Other [facility] Other Start: 03-17-2023 Telephone encounter Romeo Santana [facility] [place] [facility] Start: 02-07-2023 End: 02-07-2023 ambulatory Amanda Logan Other [facility] Other Start: 02-07-2023 Office outpatient visit 15 minutes Petr Lay [facility] [place] Start: 02-07-2023 Telephone encounter Amanda Gonzales her [facility] Start: 01-27-2023 End: 01-27-2023 ambulatory Amanda Ponceacher Other [facility] Other Start: 01-27-2023 Telephone encounter Amanda Gonzales her [facility] [place] Start: 01-19-2023 End: 01-19-2023 ambulatory Amanda Ponceacher Other [facility] Other Start: 01-19-2023 Telephone encounter Amanda Gonzales her [facility] Start: 01-13-2023 End: 01-13-2023 ambulatory Amanda Ponceacher Other [facility] Other Start: 01-13-2023 Telephone encounter Amanda Gonzales her [facility] Start: 01-10-2023 End: 01-10-2023 ambulatory Amanda Shethrbacher Other [facility] Other Start: 01-10-2023 Telephone encounter Amanda Gonzales her [facility] Start: 01-06-2023 End: 01-06-2023 ambulatory Amanda Ponceacher Other [facility] Other Start: 01-06-2023 Telephone encounter Amanda Gonzales her [facility] Start: 12-27-2022 End: 12-27-2022 ambulatory Petr Lay Other [facility] Other Start: 12-27-2022 Office outpatient visit 15 minutes Petr Lay [facility] [place] Start: 11-10-2022 End: 11-10-2022 ambulatory Amanda Ponceacher Other [facility] Other Start: 11-10-2022 Telephone encounter Amanda Gonzales her [facility] [place] Start: 10-21-2022 End: 10-21-2022 ambulatory Amanda Logan Other [facility] Other Start: 10-21-2022 Telephone encounter Amanda Gonzales her [facility] [place] Start: 10-11-2022 End: 10-11-2022 ambulatory Petr Lay Other [facility] Other Start: 10-11-2022 Office consultation new/estab patient 40 min Petr Lay [facility] [place] Start: 09-30-2022 End: 09-30-2022 ambulatory Amanda Ford Other [facility] Other Start: 09-30-2022 Office outpatient visit 15 minutes Amanda Ford [facility] [place] Start: 08-25-2022 End: 08-25-2022 ambulatory Amanda Jovanir Other [facility] Other Start: 08-25-2022 Office outpatient visit 15 minutes Amanda Logan [facility] [place] Start: 08-20-2022 End: 08-20-2022 ambulatory Amanda Jovanir Other [facility] Other Start: 08-20-2022 Office outpatient visit 15 minutes Amanda Logan [facility] [place] Start: 07-19-2022 End: 07-19-2022 ambulatory Amanda Jovanir Other [facility] Other Start: 07-19-2022 Telephone encounter Amanda Shethsarahsari her [facility] [place] Start: 07-08-2022 End: 07-08-2022 ambulatory Amandarufino Hahnr Other [facility] Other Start: 07-08-2022 Telephone encounter Amanda Janet her [facility] [place] Start: 06-23-2022 End: 06-23-2022 ambulatory CARDROOM SUPERVISORTanja Ford Work Phone: [facility] Work Phone: Start: 06-23-2022 End: 06-23-2022 Patient encounter procedure CARDROOM SUPERVISOR Amanda Ford Work Phone: [facility] [place] Work Phone: Start: 06-17-2022 End: 06-17-2022 ambulatory Amanda Logan Other [facility] Other Start: 06-17-2022 Telephone encounter Amanda Jaent her [facility] Start: 06-16-2022 End: 06-16-2022 ambulatory CARDROOM SUPERVISORTanja Ford Work Phone: [facility] Work Phone: Start: 06-16-2022 End: 06-16-2022 Patient encounter procedure CARDROOM SUPERVISOR Amanda Ford Work Phone: [facility] [place] Work Phone: Start: 06-10-2022 End: 06-11-2022 Evaluation and management of inpatient MD Robin Appiah Work Phone: [facility] Work Phone: Start: 06-10-2022 observation encounter MD Estrada Appiah Work Phone: [facility] Work Phone: Start: 06-09-2022 End: 06-09-2022 ambulatory MD Robin Appiah Work Phone: [facility] Work Phone: Start: 06-09-2022 End: 06-09-2022 Patient encounter procedure MD Robin Appiah Work Phone: [facility] [place] Work Phone: Start: 04-26-2022 End: 04-26-2022 ambulatory Amanda Logan Other W-21 Other Start: 04-26-2022 Telephone encounter Amanda aJnet her [facility] Start: 04-23-2022 End: 04-23-2022 ambulatory Amanda Logan Other W[facility] Other Start: 04-23-2022 Telephone encounter Amanda Shethfelecia her [place] [facility] Start: 04-21-2022 End: 04-21-2022 Departed Referred MD Robin Appiah Work Phone: [facility] [place] Work Phone: Start: 04-21-2022 End: 04-21-2022 ambulatory MD Robin Appiah Work Phone: [facility] Work Phone: Start: 04-21-2022 Office outpatient visit 15 minutes Amanda Ford [facility] Start: 04-20-2022 End: 04-20-2022 ambulatory Amanda Ford Other W[facility] Other Start: 04-20-2022 Telephone encounter Amanda Janet her [facility] Start: 04-13-2022 End: 04-13-2022 ambulatory Amanda Logan Other W-21 Other Start: 04-13-2022 Telephone encounter Amanda Janet her [place] [facility] Start: 04-10-2022 End: 04-10-2022 Emergency department patient visit MD Robin Appiah Work Phone: [facility] Work Phone: Start: 04-08-2022 End: 04-08-2022 Emergency department patient visit MD Robin Appiah Work Phone: [facility] Work Phone: Start: 03-30-2022 End: 03-30-2022 ambulatory Amanda Ford Other W-21 Other Start: 03-30-2022 Telephone encounter Amanda Shethsarahsari her [facility] Start: 03-23-2022 End: 03-23-2022 Patient encounter procedure MD Robin Appiah Work Phone: [facility] [place] Start: 03-23-2022 End: 03-23-2022 ambulatory Aamnda Ford Other W-21 Other Start: 03-23-2022 Office outpatient visit 15 minutes Amanda oLgan [facility] [place] Start: 03-17-2022 End: 03-17-2022 ambulatory Amanda Jovanir Other W-21 Other Start: 03-17-2022 Telephone encounter Amanda Shethsarahsari her [facility] [place] Start: 02-08-2022 End: 02-08-2022 ambulatory Amanda Rosarioacher Other W-21 Other Start: 02-08-2022 Office outpatient visit 25 minutes Amanda Rosarioacher [facility] Start: 09-01-2021 End: 09-01-2021 Patient encounter procedure Samir Thompson [facility] Start: 08-25-2021 End: 08-25-2021 Patient encounter procedure Samir Thompson [facility] Start: 08-06-2021 End: 08-06-2021 Patient encounter procedure Samir Thompson [facility] Start: 07-24-2021 End: 07-24-2021 Patient encounter procedure Samir Rivera Jaimegolden [facility] Start: 07-23-2021 End: 07-23-2021 ambulatory Amanda Ford Other W-21 Other Start: 07-23-2021 Telephone encounter Amanda Gonzales [facility] [place] Start: 07-16-2021 End: 07-16-2021 ambulatory Amanda Ford Other W-21 Other Start: 07-16-2021 Office outpatient ne w 30 minutes Amanda Ford [facility] [place] Start: 03-30-2021 End: 03-30-2021 Emergency department patient visit ROBIN CADGRICELDA [facility] Start: 05-06-2020 End: 05-08-2020 ambulatory RASHARD Gilmore [facility] Start: 05-06-2020 End: 05-08-2020 Subsequent hospital visit by physician Rashard Olivera Work Phone: [facility]o/Med Surg Comment on above: Post-op pain (Primar y Dx) Start: 05-02-2020 End: 05-03-2020 Patient encounter procedure MACKENZIE BRITO [facility] Start: 05-02-2020 End: 05-02-2020 Subsequent hospital visit by physician Michael Hernandezid Screening Schedule [facility] Covid Screening Comment on above: Pre-op testing (Prim cj Dx) Start: 04-22-2020 End: 04-25-2020 ambulatory RASHARD Gilmore [facility] Start: 04-22-2020 End: 04-27-2020 ambulatory RASHARD Gilmore [facility] Start: 04-22-2020 End: 04-24-2020 Subsequent hospital visit by physician Lam GonzalezArm 2 [facility] Comment on above: Arrived Start: 04-22-2020 End: 04-26-2020 Subsequent hospital visit by physician Martita Pat 2 MART[facility] Pre-Admit Testing Procedures Date Procedure Procedure Detail Performing Clinician Start: 11-20-2024 RECURRENT VAGINITIS (HTRX) Les Juan DO Work Phone: Start: 11-20-2024 ALL THYROID STIM HORMONE Les Juan DO Work Phone: Start: 11-20-2024 Urnls dip stick/tabl et rgnt non-auto w/o micrscp Les Juan DO Work Phone: Start: 10-22-2024 Urnls dip stick/tabl et rgnt non-auto w/o micrscp Les Juan DO Work Phone: Start: 10-18-2024 UNLISTED LAB TEST Not I n System Ref Prov Start: 10-18-2024 Bacteria identificat ion test Amanda Ford [employer]PER[employer] Work Phone: Start: 10-18-2024 Determination of kendrick wth of fungi Amanda Ford [employer] SUPER[employer] Work Phone: Start: 10-18-2024 Trichomonas vaginali s detection Amanda Ford [employer] SUPER[employer] Work Phone: Start: 10-18-2024 Urine culture Amanda Ford [employer] SUPER[employer] Work Phone: Start: 10-18-2024 Diagnostic ultrasoun d of gravid uterus Amanda Ford [employer] SUPERVIS[employer] Work Phone: Start: 10-16-2024 UNLISTED LAB TEST [...] stick/tabl et rgnt non-auto w/o micrscp Les Martinez DO Work Phone: Start: 09-03-2024 Us preg uterus after 1st trimest / gestation Shelly Hernandez CARDROOM SUPERVISOR.YOUTH DEVELOPMENT PROFESSIONAL Work Phone: Start: 08-28-2024 Us preg uterus after 1st trimest / gestation Shelly Hernandez CARDROOM SUPERVISOR.YOUTH DEVELOPMENT PROFESSIONAL Work Phone: Start: 07-04-2024 Us pelvic nonobstetr ic real-time image complete Ignacio Guy MD Work Phone: Start: 04-02-2024 Antibody screen SHELLY HERNANDEZ Comment on above: Order Comment: Speci men Type: BLOOD SPECIMEN Ordering Facility: [facility] Address: [address] [place] [address] Performed By: #### T SPN #### [facility] CLIA [id number] [address] [place] [address] [place] Start: 02-20-2024 IGP,APTIMA HPV,AGE GDLN Les Martinez DO Work Phone: Start: 02-20-2024 Microscopic observat ion [Identifier] in Cervix by Cyto stain Saúl Enriquez PhD Work Phone: Start: 12-07-2023 OR Shoulder Scope RCR/Biceps Tendon (Right) [employer] SUPERVISOR Amanda Ford Work Phone: Start: 06-10-2022 Computed tomography [...] 05-08-2020 Basic metabolic pane l calcium total Mukesh Montez Work Phone: Start: 05-08-2020 Blood count complete auto&auto difrntl wbc Rei Montez Work Phone: Start: 05-07-2020 Radex esophagus [...] Start: 04-22-2020 Assay of nicotine Rashad Gilmore [employer] Work Phone: Start: 04-22-2020 Basic metabolic pane l calcium total Rashard Olivera Work Phone: Start: 04-22-2020 Blood count complete automated Rashard Olivera Work Phone: Start: 04-22-2020 Prothrombin time Narendra Pérezton Work Phone: Start: 04-22-2020 Thromboplastin time partial plasma/whole blood Rashard Olivera Work Phone: Start: 04-22-2020 Ecg routine ecg w/le ast 12 lds i&r only Rashard Olivera Work Phone: Start: 04-22-2020 EKG REPORT Hpf Scanni ng Cholecystectomy Samir robertson Comment on above: 2016 Plan of Treatment Date Care Activity Detail Author Start: 2070 RSV Vaccine (1 - 1-dose 75+ series) RSV Vaccine (1 - 1-dose 75+ series) [facility] Start: 2045 Zoster Vaccines (1 of 2) Zoster Vaccines (1 of 2) [facility] Start: 12-25-2032 DTaP/Tdap/Td Vaccines (2 - Td or Tdap) DTaP/Tdap/Td Vaccines (2 - Td or Tdap) [facility] Start: 12-25-2032 Urine microalbumin profile DTaP,Tdap,Td Vaccine (2 - Td or Tdap) [facility] Start: 02-19-2027 Screening for malignant neoplasm of cervix [facility] Start: 08-21-2025 End: 08-21-2025 Patient encounter procedure [facility] Start: 02-20-2025 End: 02-20-2025 Patient encounter procedure [facility] Start: 12-19-2024 End: 12-19-2024 Patient encounter procedure 12/19/2024 10:00 AM EDT Routine [facility] [address] [facility] [place] [phone] Jojo Ames PA [address] [facility] [place] [address] GU[facility]IA [facility]acko [facility] Start: 12-17-2024 Influenza vaccination [facility] Start: 12-05-2024 End: 12-05-2024 Patient encounter procedure [facility] Start: 12-04-2024 End: 12-04-2024 Professional / ancillary services management 12/04/2024 8:30 AM EDT Ancillary Procedure GUDELIA HERNANDEZ [address] [facility] [place] [address] [facility] Start: 11-30-2024 Bacteria identified in Urine by Culture Urine Culture [facility] Start: 11-30-2024 Urine culture [facility] Start: 11-20-2024 End: 12-21-2024 Alpha fetoprotein, maternal Alpha fetoprotein, maternal Lab Routine Need for maternal serum alpha-protein (MSAFP) screening ([facility]) Expected: 11/20/2024 (Approximate), Expires: 12/21/2024 [facility] Comment on above: Expected: 11/20/2024 (Approximate), Expi res: 12/21/2024 Start: 11-20-2024 End: 02-20-2025 US for US OB 14+ weeks anatomy scan Imaging Routine Screening, , for anatomic survey ([facility]) Expected: 11/20/2024 (Approximate), Expires: 02/20/2025 [facility] Comment on above: Expected: 11/20/2024 (Approximate), Expi res: 02/20/2025 Start: 11-20-2024 End: 11-20-2024 Patient encounter procedure [facility] Comment on above: Arrived Start: 10-22-2024 End: 10-22-2024 Patient encounter procedure 10/22/2024 11:20 AM EDT Routine [facility] [address] [facility] [place] [phone] Les Martinez DO [address] [facility] [place] [address] [facility] Start: 10-18-2024 Bacteria identified in Urine by Culture Urine Culture [facility] Start: 10-18-2024 Genital Culture Genital Culture [facility] Start: 10-18-2024 Urine culture [facility] Start: 10-18-2024 [facility] Start: 09-20-2024 End: 09-20-2025 ABO/Rh ABO/Rh Lab Routine Missed menses , unspecified gestational age Expected: 09/20/2024 (Approximate), Expires: 09/20/2025 [facility] Comment on above: Expected: 09/20/2024 (Approximate), Expi res: 09/20/2025 Start: 09-20-2024 End: 09-20-2025 Blood type and Indirect antibody screen panel - Blood Type and screen Lab Routine Missed menses , unspecified gestational age Expected: 09/20/2024 (Approximate), Expires: 09/20/2025 [facility] Work Phone: Comment on above: Expected: 09/20/2024 (Approximate), Expi res: 09/20/2025 Start: 09-20-2024 End: 09-20-2025 Drugs of abuse panel - Urine by Screen method Rapid drug screen, urine Lab Routine , unspecified gestational age Encounter for supervision of normal first in first trimester Expected: 09/20/2024 (Approximate), Expires: 09/20/2025 [facility] Comment on above: Expected: 09/20/2024 (Approximate), Expi res: 09/20/2025 Start: 09-13-2024 End: 09-13-2024 ambulatory 09/13/2024 2:30 PM EDT Initial [facility] [address] [place] [address] [place] [phone] [facility] Start: 09-13-2024 End: 09-13-2024 Professional / ancillary services management 09/13/2024 2:00 PM EDT Ancillary Procedure [facility] [address] [place] [address] [place] [address] [facility] Start: 09-03-2024 End: 09-03-2024 Nursing evaluation of patient and report Reproductive Endocrinology Infertility Comment on above: scan ob scan, non ivf Start: 08-22-2024 End: 08-22-2025 25-hydroxyvitamin D3 [Mass/volume] in Serum or Plasma Vitamin D 25 hydroxy Lab Routine H/O gastric bypass Vitamin D deficiency Expected: 08/22/2024 (Approximate), Expires: 08/22/2025 [facility] Comment on above: Expected: 08/22/2024 (Approximate), Expi res: 08/22/2025 Start: 08-22-2024 End: 08-22-2025 Cobalamin (Vitamin B12) [Mass/volume] in Serum or Plasma Vitamin B12 Lab Routine H/O gastric bypass Expected: 08/22/2024 (Approximate), Expires: 08/22/2025 [facility] Comment on above: Expected: 08/22/2024 (Approximate), Expi res: 08/22/2025 Start: 08-22-2024 End: 08-22-2025 Thiamine (aka Vitamin B1) Thiamine (aka Vitamin B1) Lab Routine H/O gastric bypass Expected: 08/22/2024 (Approximate), Expires: 08/22/2025 [facility] Comment on above: Expected: 08/22/2024 (Approximate), Expi res: 08/22/2025 Start: 08-22-2024 End: 08-22-2025 Thyrotropin [Units/volume] in Serum or Plasma TSH Lab Routine Abnormal thyroid function test Expected: 08/22/2024 (Approximate), Expires: 08/22/2025 [facility] Comment on above: Expected: 08/22/2024 (Approximate), Expi res: 08/22/2025 Start: 08-22-2024 End: 08-22-2025 Thyroxine (T4) free [Mass/volume] in Serum or Plasma T4, free Lab Routine Abnormal thyroid function test Expected: 08/22/2024 (Approximate), Expires: 08/22/2025 [facility] Comment on above: Expected: 08/22/2024 (Approximate), Expi res: 08/22/2025 Start: 08-22-2024 End: 08-22-2025 Triiodothyronine (T3) Free [Mass/volume] in Serum or Plasma T3, free Lab Routine Abnormal thyroid function test Expected: 08/22/2024 (Approximate), Expires: 08/22/2025 [facility] Work Phone: Comment on above: Expected: 08/22/2024 (Approximate), Expi res: 08/22/2025 Start: 08-22-2024 End: 08-22-2024 Patient encounter procedure 08/22/2024 10:00 AM EDT Office Visit [facility] [address] [place] [address] Darleen Sinclair MD [address] [place] [address] Arrived [facility] Comment on above: Arrived Start: 08-20-2024 End: 08-20-2025 OBSTETRIC ULTRASOUND WHI OBSTETRIC ULTRASOUND WHI Anc Imaging Routine 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) Expected: 08/20/2024, Expires: 08/20/2025 [facility] Work Phone: Comment on above: Expected: 08/20/2024, Expires: Start: 08-20-2024 End: 08-20-2024 ambulatory 08/20/2024 8:30 AM EDT [facility] Reproductive Endocrinology Infertility [address] [place] [address] Shelly Hernandez, CARDROOM SUPERVISOR.YOUTH DEVELOPMENT PROFESSIONAL [address] [place] [address] preg appt Reproductive Endocrinology Infertility Comment on above: preg appt Start: 07-07-2024 End: 07-07-2024 Patient encounter procedure [facility] Comment on above: donor thaw iui d Start: 05-09-2024 End: 05-09-2024 ambulatory 05/09/2024 8:00 AM EST [facility] Reproductive Endocrinology Infertility [address] [place] [address] Shelly Hernandez APRN.YOUTH DEVELOPMENT PROFESSIONAL [address] [place] [address] donor sperm teach Reproductive Endocrinology Infertility Comment on above: donor sperm teach Start: 04-26-2024 Patient referral [facility] Work Phone: Start: 03-11-2024 End: 06-10-2024 25-hydroxyvitamin D3 [Mass/volume] in Serum or Plasma VITAMIN D 25 HYDROXY Lab Routine Reproductive mgmt, 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 Expected: 03/11/2024, Expires: 06/10/2024 [facility] Comment on above: Expected: 03/11/2024, Expires: Start: 03-11-2024 End: 06-10-2024 CARRIER SCREEN, EXPANDED CARRIER SCREEN, EXPANDED Lab Routine Encounter for other genetic testing of female for procreative management Expected: 03/11/2024, Expires: 06/10/2024 [facility] Comment on above: Expected: 03/11/2024, Expires: Start: 03-11-2024 End: 06-10-2024 Chlamydia trachomatis+Neisseria gonorrhoeae DNA [Presence] in Unspecified specimen by AC with probe detection GONORRHEA/CHLAMYDIA NAAT Lab Routine Special screening examination for infectious diseases Expected: 03/11/2024, Expires: 06/10/2024 [facility] Comment on above: Expected: 03/11/2024, Expires: Start: 03-11-2024 End: 06-10-2024 Cytomegalovirus IgG Ab [Units/volume] in Serum or Plasma CMV IGG ANTIBODY BL Lab Routine Special screening examination for infectious diseases Expected: 03/11/2024, Expires: 06/10/2024 [facility] Comment on above: Expected: 03/11/2024, Expires: Start: 03-11-2024 End: 06-10-2024 Cytomegalovirus IgM Ab [Units/volume] in Serum or Plasma CMV IGM AB Lab Routine Special screening examination for infectious diseases Expected: 03/11/2024, Expires: 06/10/2024 [facility] Comment on above: Expected: 03/11/2024, Expires: Start: 03-11-2024 End: 06-10-2024 Hemoglobin A1c in Blood HEMOGLOBIN A1C Lab Routine Reproductive mgmt, 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 Expected: 03/11/2024, Expires: 06/10/2024 [facility] Comment on above: Expected: 03/11/2024, Expires: Start: 03-11-2024 End: 06-10-2024 Hepatitis B virus core Ab [Presence] in Serum HEPATITIS B CORE ANTIBODY TOTAL Lab Routine Special screening examination for infectious diseases Expected: 03/11/2024, Expires: 06/10/2024 [facility] Comment on above: Expected: 03/11/2024, Expires: Start: 03-11-2024 End: 06-10-2024 Hepatitis B virus surface Ag [Presence] in Serum HEPATITIS B SURFACE ANTIGEN Lab Routine Special screening examination for infectious diseases Expected: 03/11/2024, Expires: 06/10/2024 [facility] Comment on above: Expected: 03/11/2024, Expires: Start: 03-11-2024 End: 06-10-2024 Hepatitis C virus Ab [Presence] in Serum HEPATITIS C ANTIBODY IA WITH CONFIRMATION Lab Routine Special screening examination for infectious diseases Expected: 03/11/2024, Expires: 06/10/2024 [facility] Comment on above: Expected: 03/11/2024, Expires: Start: 03-11-2024 End: 06-10-2024 HIV 1+2 Ab [Presence] in Serum or Plasma by Immunoassay HIV 1/2 COMBO WITH REFLEX TO DIFFERENTIATION Lab Routine Special screening examination for infectious diseases Expected: 03/11/2024, Expires: 06/10/2024 [facility] Comment on above: Expected: 03/11/2024, Expires: Start: 03-11-2024 End: 06-10-2024 RUBELLA IGG ANTIBODY RUBELLA IGG ANTIBODY Lab Routine Special screening examination for infectious diseases Expected: 03/11/2024, Expires: 06/10/2024 [facility] Comment on above: Expected: 03/11/2024, Expires: Start: 03-11-2024 End: 06-10-2024 SYPHILIS TREPONEMAL W/REFLEX SYPHILIS TREPONEMAL W/REFLEX Lab Routine Special screening examination for infectious diseases Expected: 03/11/2024, Expires: 06/10/2024 [facility] Comment on above: Expected: 03/11/2024, Expires: Start: 03-11-2024 End: 06-10-2024 TYPE + SCREEN TYPE + SCREEN Blood Bank Routine Reproductive mgmt, 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 Expected: 03/11/2024, Expires: 06/10/2024 [facility] Comment on above: Expected: 03/11/2024, Expires: Start: 03-11-2024 End: 06-10-2024 VARICELLA ZOSTER IGG VARICELLA ZOSTER IGG Lab Routine Special screening examination for infectious diseases Expected: 03/11/2024, Expires: 06/10/2024 [facility] Work Phone: Comment on above: Expected: 03/11/2024, Expires: Start: 03-09-2024 End: 03-09-2024 ambulatory 03/09/2024 10:00 AM EST [facility] Reproductive Endocrinology Infertility [address] [place] [address] Shelly Hernandez APRN.YOUTH DEVELOPMENT PROFESSIONAL [address] [place] [address] Donor sperm teach Reproductive Endocrinology Infertility Comment on above: Donor sperm teach Start: 02-20-2024 End: 02-20-2024 Patient encounter procedure 02/20/2024 2:50 PM EST Office Visit [facility] [address] [facility] [address] [place] [address] Les Martinez DO [address] [place] [address] Arrived [facility] Comment on above: Arrived Start: 12-18-2023 Covid-19 Vaccine ( season) Covid-19 Vaccine ( season) [facility] Start: 12-18-2023 Covid-19 Vaccine ( season) Covid-19 Vaccine () [facility] Start: 12-18-2023 Influenza vaccination Influenza Vaccine (#1) [facility] Start: 12-07-2023 End: 12-07-2023 [facility] Start: 06-15-2022 [facility] Start: 06-14-2022 [facility] Start: 06-13-2022 [facility] Start: 06-12-2022 [facility] Start: 06-11-2022 End: 06-11-2022 [facility] Start: 06-10-2022 Hospital admission [facility] Start: 06-10-2022 [facility] Start: 06-10-2022 [facility] Start: 06-09-2022 [facility] Start: 04-21-2022 Bacteria identified in Urine by Culture Urine Culture [facility] Start: 04-10-2022 Bacteria identified in Urine by Culture Urine Culture [facility] Start: 05-16-2020 End: 05-16-2020 Office Visit 05/16/2020 Office Visit [place] Rashard Olivera, [address] [phone] [facility] Start: 05-06-2020 End: 05-06-2020 Hospital Encounter [facility] OR Comment on above: XI LAPAROSCOPIC ROBOTIC GASTRIC BYPASS R OUX-EN-Y, LIVER BIOPSY, EGD- GI UNIT SCHEDULED. Start: 05-02-2020 End: 05-01-2021 COVID-19 COVID-19 Lab Routine Pre-op testing Expected: 05/02/2020, Expires: 05/01/2021 [facility] [place] Comment on above: Expected: 05/02/2020, Expires: Start: 05-02-2020 End: 05-02-2020 [facility] Start: 01-11-2020 TSH Qn TSH testing [place] Start: 12-18-2019 Influenza vaccination Flu vaccine (#1) [place], [place] Start: 2016 Screening for malignant neoplasm of cervix [facility] Start: 2014 DTaP,Tdap and Td Vaccines (1 - Tdap) DTaP,Tdap and Td Vaccines (1 - Tdap) [facility] Start: 2014 DTaP/Tdap/Td vaccine (1 - Tdap) DTaP/Tdap/Td vaccine (1 - Tdap) [place] Start: 2014 Hepatitis B Vaccine (1 of 3 - 19+ 3-dose series) Hepatitis B Vaccine (1 of 3 - 19+ 3-dose series) [facility] Start: 2014 Hepatitis B Vaccines (1 of 3 - 19+ 3-dose series) Hepatitis B Vaccines (1 of 3 - 19+ 3-dose series) [facility] Start: 2014 Urine microalbumin profile DTaP,Tdap,Td Vaccine (1 - Tdap) [facility] Start: 2013 Adult BMI Screening Adult BMI Screening [facility] Start: 2013 Anxiety Screening Anxiety Screening [facility] Start: 2013 Depression Screening Depression Screening [facility] Start: 2013 Hepatitis C screening Hepatitis C Screening [facility] Start: 2013 HIV screening HIV Screening [facility] Start: 2010 HIV screening HIV screen [place], [place] Start: 2008 Varicella vaccination Varicella Vaccines (1 of 2 - 13+ 2-dose series) [facility] Start: 2007 Depression Screening Depression Screening [facility] Start: 2007 Tobacco Screening Tobacco Screening [facility] Start: 2006 HPV vaccine (1 - 2-dose series) HPV vaccine (1 - 2-dose series) [place] Start: 1996 MMR Vaccines (1 of 1 - Standard series) MMR Vaccines (1 of 1 - Standard series) [facility] Start: 1996 Varicella vaccine (1 of 2 - 2-dose childhood series) Varicella vaccine (1 of 2 - 2-dose childhood series) [place] Start: 1995 Hepatitis C [facility] Start: 1995 HIV screening HIV Screening [facility] Start: 1995 Lipid panel Lipid Panel [facility] Start: 1995 Yearly Adult Physical Yearly Adult Physical [facility] aPTT in Platelet poo r plasma by Coagulation assay [facility] Bacteria identified in Genital specimen by [facility] [facility] Bacteria identified in Urine by Culture Urine culture Microbiology Routine Missed menses Ordered: 09/20/2024 [facility] Comment on above: Ordered: 09/20/2024 Calcitriol [Mass/vol ume] in Serum or Plasma [facility] CBC W Auto Different ial panel - Blood CBC and differential Lab Routine Missed menses , unspecified gestational age Ordered: 09/20/2024 [facility] Comment on above: Ordered: 09/20/2024 CHLAMYDIA TRACHOMATI S (GENITO/STI) CHLAMYDIA TRACHOMATIS (GENITO/STI) Lab Routine Exposure to STD Ordered: 11/20/2024 [facility] Comment on above: Ordered: 11/20/2024 Continuous pulse oximetry Pulse oximetry, continuous Respiratory Care Routine Every 4hr until [facility]: Every 4hr until discontinued starting CT Abdomen and Pelvi s WO and W contrast IV [facility] Cytology Cervical or vaginal smear or scraping study Pap Smear Pathology and Cytology Routine Well woman exam with routine gynecological exam Ordered: 02/20/2024 [facility] Work Phone: Comment on above: Ordered: 02/20/2024 Electromyography [facility] F5 gene mutations fo und [Identifier] in Blood or Tissue by Molecular genetics method Nominal [facility] Factor VIII: C assay [facility] Glucose measurement estimated from glycated hemoglobin [facility] Hemoglobin A1c/Hemoglobin.total in Blood [facility] Hemoglobin A1c/Hemoglobin.total in Blood Hemoglobin A1c Lab Routine Missed menses , unspecified gestational age Ordered: 09/20/2024 [facility] Comment on above: Ordered: 09/20/2024 Hepatitis B virus priest rface Ag [Presence] in Serum or Plasma by Immunoassay Hepatitis B surface antigen Lab Routine Missed menses , unspecified gestational age Ordered: 09/20/2024 [facility] Comment on above: Ordered: 09/20/2024 Hepatitis C virus Ab [Presence] in Serum or Plasma by Immunoassay Hepatitis C antibody Lab Routine Missed menses , unspecified gestational age Ordered: 09/20/2024 [facility] Comment on above: Ordered: 09/20/2024 HIV-1/HIV-2 antigen/antibody combination immunoassay HIV-1 and HIV-2 antibodies Lab Routine Missed menses , unspecified gestational age Ordered: 09/20/2024 [facility] Comment on above: Ordered: 09/20/2024 INR in Platelet poor plasma by Coagulation assay [facility] Mullerian inhibiting substance [Mass/volume] in Serum or Plasma [facility] Nebulizer therapy HHN Treatment Respiratory Care Routine TID until discontinued [facility]: TID until discontinued starting 05/06/19 21 Neisseria gonorrhoea e DNA [Presence] in Unspecified specimen by AC with probe detection Neisseria gonorrhea DNA probe, direct Lab Routine Exposure to STD Ordered: 11/20/2024 [facility] Comment on above: Ordered: 11/20/2024 Oxygen therapy [[facility] Set] Initiate Oxygen Therapy Protocol Respiratory Care Routine Daily until discontinued [facility]06[facility] on above: Daily until discontinued starting 2020 Patient Education [facility] Work Phone: Patient referral [facility] Work Phone: Reagin Ab [Presence] in Serum by RPR RPR Lab Routine Missed menses , unspecified gestational age Ordered: 09/20/2024 [facility] Comment on above: Ordered: 09/20/2024 Rubella antibody, IgG Rubella an tibody, IgG Lab Routine Missed menses , unspecified gestational age Ordered: 09/20/2024 [facility] Comment on above: Ordered: 09/20/2024 Spirometry panel Incentive marti metry Respiratory Care Routine Every 2hr while awake until discontinued starting [facility]06[facility] above: Every 2hr while awake until discontinued starting 05/06/2020 SURESWAB(R) ADVANCED VAGINITIS PLUS, TMA SURESWAB(R) ADVANCED VAGINITIS PLUS, TMA Pathology and Cytology Routine Exposure to STD Ordered: 11/20/2024 [facility] Work Phone: Comment on above: Ordered: 11/20/2024 Surgical Pathology Surgical Path ology Lab Routine Release Upon Ordering for 1 Occurrences starting 05/06/2020 [place] Comment on above: Release Upon Ordering for 1 Occurrences starting 05/06/2020 End: 11-20-2025 Thyrotropin [Units/volume] in Serum or Plasma TSH Lab Routine Thyroid disease every 4 weeks for 6 Occurrences starting 11/20/2024 until 11/20/2025 [facility] Comment on above: every 4 weeks for 6 Occurrences starting 11/20/2024 until 11/20/2025 von Willebrand facto r (vWf) Ag [Units/volume] in Platelet poor plasma [facility] von Willebrand facto r (vWf) multimers in Platelet poor plasma by Immunoblot [facility] von Willebrand facto r (vWf) ristocetin cofactor actual/normal in Platelet poor plasma by Platelet aggregation [facility] Immunizations Immunization Date Immunization Notes Care Provider Fa cility 12-25-2022 tetanus toxoid, reduced diphtheria toxoid, and acellular pertussis vaccine, adsorbed Darleen Sinclair MD Work Phone: [facility] 08-19-2020 COVID-19 mRNA-1273 (Moderna) MELY Ford Work Phone: [facility] 07-22-2020 COVID-19 mRNA-1273 (Moderna) MELY Ford Work Phone: [facility] Payers Date Payer Category Payer Self-pay [id number] 2022 Medicaid [id number] 2022 Medicaid [id number] 2020 Unknown [id number] 2015 Unknown [id number] .[id number] 1995 Unknown [id number] 2.16.840.1.779133.3.579.2.176 1995 Unknown [id number] 2.16.840.1.805196.3.579.2.175 1995 Unknown [id number] 2.16.840.1.358898.3.579.2.175 1995 Unknown [id number] 2.16.840.1.314476.3.579.2.175 1995 Unknown [id number] 2.16.840.1.765308.3.579.2.175 1995 Unknown [id number] 2.16.840.1.806292.3.579.2.124 4 1995 Unknown [id number] 2.16.840.1.708186.3.579.2.718 1995 Unknown [id number] 2.16.840.1.730421.3.579.2.718 1995 Unknown [id number] 2.16.840.1.378571.3.579.2.718 1995 Unknown [id number] 2.16.840.1.245406.3.579.2.718 1995 Unknown [id number] 2.16.840.1.425801.3.579.2.718 1995 Unknown [id number] 2.16.840.1.557933.3.579.2.718 1995 Unknown [id number] 2.16.840.1.714194.3.579.2.718 1995 Unknown [id number] 2.16.840.1.581680.3.579.2.125 9 1995 Unknown [id number] 2.16.840.1.466038.3.579.2.125 9 1995 Unknown [id number] 2.16.840.1.536572.3.579.2.125 9 1995 Unknown [id number] 2.16.840.1.592003.3.579.2.125 9 1995 Unknown [id number] 2.16.840.1.139691.3.579.2.125 9 1995 Unknown [id number] 2.16.840.1.748791.3.579.2.125 9 1995 Unknown [id number] 2.16.840.1.763192.3.579.2.125 [address] [facility] [id number] Unknown [id number] 2.16.840.1.561693.19 Unknown [id number] 2.16.840.1.344666.3.579.2.531 Unknown [id number] 2.16.840.1.892395.3.579.2.531 Unknown [id number] 2.16.840.1.985816.3.579.2.531 Social History Date Type Detail Facility Start: 04-22-2020 End: 06-08-2023 Tobacco smoking status NHIS Never smoker [place] Start: 04-22-2020 End: 11-28-2023 Tobacco use and exposure Never used [place] Start: 04-22-2020 End: 05-02-2020 Alcohol intake Current non-drinker of alcohol (finding) [place] Start: 1995 Sex Assigned At Not on file [place] Exposure to SARS-CoV-2 (event) Not sure [place] Tobacco smoking status Never [facility] Start: 05-20-2020 End: 11-28-2023 Sex Assigned At Female W-21 Other Start: 1995 Sex Assigned At Female [facility] Start: 06-10-2022 Tobacco smoking status NHIS Current some day smoker [facility] Start: 11-28-2023 End: 12-07-2023 Tobacco smoking status NHIS Smoker (finding) [facility] Start: 11-28-2023 End: 10-26-2024 Tobacco smoking status NHIS Smokes tobacco daily [facility] History of tobacco use Cigarette Smoker [facility] Start: 05-20-2020 End: 11-28-2023 Cigarettes smoked current (pack per day) - Reported 0.5 [facility] Start: 11-28-2023 End: 11-20-2024 Alcoholic beverage intake Ex-drinker (finding) [facility] Start: 01-10-2023 Alcohol Comment caffeine: 1-2 cups per day tea [facility] Start: 01-19-2023 Gender identity Identifies as female gender (finding) [facility] Start: 05-20-2020 End: 02-27-2024 Sex Female (finding) [facility] Tobacco smoking status NHIS Tobacco smoking consumption unknown [facility] Start: 08-01-2023 [facility] Start: 10-18-2024 Tobacco smoking status NHIS Ex-smoker (finding) [facility] NEGATED: Highlighted row [facility] Medical Equipment Procedure Code Equipment Code Equipment [...] FDA Start: 10-15-2019 Tendon/ligament bone anchor, non-bioabsorbable ()[id number] FDA Start: 12-07-2023 Tendon/ligament bone anchor, non-bioabsorbable ()[id number] FDA Start: 12-07-2023 Tendon/ligament bone anchor, non-bioabsorbable ()[id number] FDA Start: 12-07-2023 Tendon/ligament bone anchor, non-bioabsorbable ()[id number] FDA Start: 12-07-2023 Goals Date Patient Goal Desired Activity /State Personal health goal Functional Status Date Assessment Result Facility 06-11-2022 Functional status Patient at Baseline [facility] Work Phone: 06-10-2022 Functional status Patient at Baseline [facility] Work Phone: Mental Status Date Assessment Result Facility 06-11-2022 Cognitive function Cognitive Sta tus Patient at Baseline [facility] Work Phone: 06-10-2022 Cognitive function Cognitive Sta tus Patient at Baseline [facility] Work Phone: Clinical Notes 07-16-2021 to 11-20-2024 Alana Valverde LPN - 11/20/2024 8:40 AM Cedric Duenas NP - 10/22/2024 11:20 AM EDAnna Asif MA - 09/20/2024 2:30 PM Charisse Etienne APRN.JARROD - 09/03/2024 5:39 PM EDTPatient Instructions Note [...] nursing note reviewed. Exam conducted with a mutuel teller present. Vitals: Estimated body mass index is [...] gonorrhea DNA probe, direct 3. Second trimester ([facility]) Z34.92 POCT urinalysis dipstick manually resulted 4. 18 weeks gestation of ([facility]) Z3A.18 5. Need for maternal serum alpha-protein (MSAFP) screening ([facility]) Z36.1 Alpha fetoprotein, maternal Alpha fetoprotein, maternal 6. Screening, , for anatomic survey ([facility]) Z36.89 US OB 14+ weeks [...] Les Martinez DO documented in this encounter [facility] 10-22-2024 History of Presen t illness Narrative [...] nursing note reviewed. Exam conducted with a mutuel teller present. Vitals: Estimated body mass index is 31.24 kg/m as calculated from the following: Height as of 08/22/24: 5' 11 . Weight as of this encounter: 224 lb. BP: 110/62 No LMP recorded. Patient is . ASSESSMENT & PLAN ICD-10-CM 1. 13 weeks gestation of ([facility]) Z3A.13 POCT urinalysis dipstick manually resulted 2. Second trimester ([facility]) Z34.92 POCT urinalysis dipstick manually resulted 3. Thyroid disease E07.9 4. H/O gastric sleeve Z90.3 5. H/O iron deficiency anemia Z86.2 6. resulting from in vitro fertilization in first trimester ([facility]) O09.811 Return OB: Patient presents today for [...] Les Martinez DO documented in this encounter [facility] 10-18-2024 Radiology Diagnostic study note [facility] [place] [address] Ultrasound Report Signed Patient: Jaz Sanders MR#: [id number] : 1995 Acct:[id number] Age/Sex: 29 / F ADM Date: 5 Loc: ER Room: Type: [facility] ER Attending Dr: Ordering Provider: Kassidy [...] Jr., D.ORenae 10/18/2024 2:21 PM Dictation Location: [place] [address] Tech: Natalie Haji Transcribed By: MAITE 10/18/24 1421 Dictated By: Sravan Dickinson Jr, DO 10/18/24 1419 Signed By: 10/18/24 1421 [facility] 09-20-2024 History of Presen t illness Narrative [...] Surgical History: Procedure Laterality Date ABDOMINAL SURGERY Josephine 19 2021 BARIATRIC SURGERY 05/06/2020 Gastric Sleeve bypass CHOLECYSTECTOMY [...] screen, urine; Future Nurse Note: Patient declined [place] at this time. Patient is an IVF from [facility]. OB Intake: Patient presents today for first OB visit. Patients history has been reviewed in great detail including any potential risks. Patient signed consent forms and patient desires testing in both trimesters. Patient currently has no complaints and has been advised to drink 6-8 glasses of water a day, eat no raw or undercooked meat, and stay away from [facility]. Patient has also been advised to [...] Marsha Asif MA documented in this encounter [facility] 09-05-2024 Note HNO ID: [id number] Author: SHELLY HERNANDEZ APRN.CNP Service: ? Author [...] 3. Cycle Day: Last menstrual period: 07/19/2024 [place] Protocol: UNIVERSAL PROTOCOL / SAFETY CHECKLIST Procedure [...] DATE: September 05, 2024 TIME: 10:45 PM [facility] 09-03-2024 History of Presen t [...] 2024 5:39 PM documented in this encounter [facility] 09-03-2024 Note HNO ID: [id number] Author: CHARISSE WEAVER APRN.CNP Service: ? Author [...] Plan Move on to OB Charisse Weaver APRN.YOUTH DEVELOPMENT PROFESSIONAL September 03, 2024 5:39 PM [facility] 08-30-2024 Note HNO ID: [id number] Author: MIKEY TORRES MD Service: ? Author Type: Physician Type: Progress Notes Filed: 08/30/2024 16:36 Note Text: Viable ratliff IUP Size equal Date. Plan: patient to follow up with her ob for care. Stacy Banuelos MD [facility] 08-30-2024 History of Presen t [...] Positive Positive hCG levels: 08/13 - 63.6 4/30 - 160.6 5/2 - 362.7 Dating: Currently 6w0d based off of IUI date. By Ultrasound, measuring 5w6d FHR: 100 Plan: repeat scan next week as scheduled Shelly Hernandez APRN.CNP documented in this encounter [facility] 08-28-2024 Note HNO ID: [id number] Author: SHELLY HERNANDEZ APRN.CNP Service: ? Author [...] Positive Positive hCG levels: 08/13 - 63.6 4/30 - 160.6 5/2 - 362.7 Dating: Currently 6w0d based off of IUI date. By Ultrasound, measuring 5w6d FHR: 100 Plan: repeat scan next week as scheduled Shelly Hernandez APRN.CNP [facility] 08-24-2024 Telephone encounter Note spoke [...] schedule the patient for the following- Location: [facility] Provider: nurse Visit type: scan Reason for visit/appointment notes: scan Date: 08/28 Time (requested): 1110 If slot is full, please schedule the closest open slot. Call to patient needed: no [facility] 08-24-2024 Miscellaneous Notes spoke with Jaz, [...] schedule the patient for the following- Location: [facility] Provider: nurse Visit type: scan Reason for visit/appointment notes: scan Date: 08/28 Time (requested): 1110 If slot is full, please schedule the closest open slot. Call to patient needed: no Name: Jaz Sanders called today. : 1995 (home) [phone] (cell) Reason for call: pt called today informing the nurse she has been experiencing pain of level 4 from 1-10. Pt has been experiencing pain for 2 day. 5 weeks today. The patients preferred pharmacy has been captured for this encounter? [facility] [employer] documented in this encounter [facility] 08-24-2024 Telephone encounter Note See 08/23/24 LIBBY Ward RN August 24, 2024 1:58 PM [facility] 08-24-2024 Miscellaneous Notes See 08/23/24 TE Marianna Ward RN August 24, 2024 1:58 PM Pt would like a call back documented in this encounter [facility] 08-24-2024 Telephone encounter Note Pt would like a call back [facility] 08-23-2024 Telephone encounter Note Name: Jaz Snaders called today. : 1995 (home) [phone] (cell) Reason for call: pt called today informing the nurse she has been experiencing pain of level 4 from 1-10. Pt has been experiencing pain for 2 day. 5 weeks today. The patients preferred pharmacy has been captured for this encounter? 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 There have been [...] year (around 08/22/2025). documented in this encounter [facility] 08-20-2024 Note HNO ID: [id number] Author: SHELLY HERNANDEZ APRN.JARROD Service: ? Author [...] visit. Either the patient or their legal sales representative electric service has been informed of the risks and [...] from assisted reproductive technology in first trimester ([facility]) O09.811 OBSTETRIC ULTRASOUND WHI Plan: further labwork needed: no scan scheduled: 09/03 medications to discontinue: patient to discuss status with her providers Schedule with OB: 09/13 Shelly Hernandez APRN.YOUTH DEVELOPMENT PROFESSIONAL August 20, 2024 8:33 AM Please schedule the patient for the following- Location: [place] Provider: nurse Visit type: Reason for visit/appointment notes: scan Date: 09/03 Time (requested): 1040 If slot is full, please schedule the closest open slot. Call to patient needed: no I spent a total of 30 minutes on the date of the service which included preparing to see the patient, [id number] patient care, completing clinical documentation, obtaining and/or [...] grammatical and typographical errors missed in proofreading. [facility] 08-20-2024 History of Presen t [...] visit. Either the patient or their legal sales representative electric service has been informed of the risks and [...] in first trimester ([facility]) O09.811 OBSTETRIC ULTRASOUND I Plan: further labwork needed: no scan scheduled: 09/03 medications to discontinue: patient to discuss status with her providers Schedule with OB: 09/13 Shelly Hernandez APRN.CNP August 20, 2024 8:33 AM Please schedule the patient for the following- Location: [place] Provider: nurse Visit type: Reason for visit/appointment notes: scan Date: 09/03 Time (requested): 1040 If slot is full, please schedule the closest open slot. Call to patient needed: no I spent a total of 30 minutes on the date of the service which included preparing to see the patient, [id number] patient care, completing clinical documentation, obtaining and/or [...] missed in proofreading. documented in this encounter [facility] 08-16-2024 Telephone encounter Note Called patient back to phone number listed in nChannel-no answer. Lm for patient to look out for Mychart message. Daniel Hanna APRN.CNP August 16, 2024 5:15 PM [facility] 08-16-2024 Miscellaneous Notes Called patient back to phone number listed in nChannel-no answer. Lm for patient to look out for Mychart message. Daniel Hanna APRN.JARROD August 16, 2024 5:15 PM Name: Jaz Sanders called today. : 1995 (home) [phone] (cell) Reason for call: pt called that she got positive test, she has been having having cramping since last night , it happens every hours for couple minutes. The patients preferred pharmacy has been captured for this encounter? yes [facility] [employer] documented in this encounter [facility] 08-16-2024 Telephone encounter Note Name: Jaz Sanders called today. : 1995 (home) [phone] (cell) Reason for call: pt called that she got positive test, she has been having having cramping since last night , it happens every hours for couple minutes. The patients preferred pharmacy has been captured for this encounter? yes [facility] [employer] [facility] 08-15-2024 Telephone encounter Note Pt is preg and wants to know if she can take benadryl due to her having hives [facility] 08-15-2024 Miscellaneous Notes Pt is preg and wants to know if she can take benadryl due to her having hives documented in this encounter [facility] 07-31-2024 Note HNO ID: [id number] Author: DOMINGUEZ BARRY, ? Service: ? Author Type: Biochemist Type: Progress Notes Filed: 09/05/2024 22:45 Note Text: IUI [facility] Donor # [id number] Pre: frozen washed specimen Post: 82 M/ml, 67% Insem # 27.5 million [facility] 07-31-2024 Note HNO ID: [id number] Author: DOMINGUEZ BARRY, ? Service: ? Author Type: Biochemist Type: Progress Notes Filed: 07/31/2024 15:26 Note Text: Thaw for IUI. Dominguez Barry [facility] 07-31-2024 History of Presen t illness Narrative Thaw for IUI. Dominguez Barry documented in this encounter [facility] 07-31-2024 Note HNO ID: [id number] Author: DOMINGUEZ BARRY, ? Service: ? Author Type: Biochemist Type: Progress Notes Filed: 09/05/2024 22:45 Note Text: IUI specimen released to provider Dominguez Barry July 31, 2024 3:24 PM [facility] 07-31-2024 Note HNO ID: [id number] Author: MUSTAPHA TELLO MA Service: ? Author Type: Plush Finisher Type: Progress Notes Filed: 07/31/2024 15:12 Note Text: Patient verified by full name and date of . Jaz Sanders is here today for an IUI. LMP: 07/19/2024 Natural cycle IUI Timed With: Ovulation Predictor Kit , Date: 07/30/2024 Revenue Inspector offered: Patient declines Mustapha Tello MA July 31, 2024 3:12 PM [facility] 07-30-2024 Telephone encounter Note patient's OPK today was dark but not positive Plan: test again tomorrow. 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 Service: ? Author Type: Biochemist Type: Progress Notes Filed: 07/19/2024 07:50 Note Text: IUI [employer] #[id number] Washed frozen specimen Post: 31 m/ml, 77% Insem#: 10.8 million [facility] 07-08-2024 History of Presen t illness Narrative IUI [facility] #[id number] Washed frozen specimen Post: 31 m/ml, 77% Insem#: 10.8 million IUI specimen released to provider Nichelle Gonzalez July 07, 2024 10:10 AM documented in this encounter [facility] 07-07-2024 Note HNO ID: [id number] Author: NICHELLE GONZALEZ, ? Service: ? Author Type: Biochemist Type: Progress Notes Filed: 07/19/2024 07:50 Note Text: IUI specimen released to provider Nichelle Gonzalez July 07, 2024 10:10 AM [facility] 07-07-2024 Note HNO ID: [id number] Author: MIKEY TORRES MD Service: ? Author [...] Cycle Day: 14 Last menstrual period: 06/24/2024 [place] Protocol: UNIVERSAL PROTOCOL / SAFETY CHECKLIST Procedure [...] primary surgeon/proceduralist with assistance. Stacy Banuelos MD [facility] 07-07-2024 Procedure note WHI JAMEL IUI PROCEDURE NOTE Date: 07/07/2024 Primary Proceduralist: Nakia Duran MD Consents and Labels Consent Signed: Informed Consent obtained and on the chart Labels Verified With Patient: Yes Indications: Jaz Sanders, is a 29 year old No obstetric history on file. female here today for intrauterine insemination. IUI # 2. Cycle Day: 14 Last menstrual period: 06/24/2024 [place] Protocol: UNIVERSAL PROTOCOL / SAFETY CHECKLIST Procedure [...] primary surgeon/proceduralist with assistance. Stacy Banuelos MD [facility] 07-07-2024 Procedure note I JAMEL IUI PROCEDURE NOTE Date: 07/07/2024 Primary Proceduralist: Nakia Duran MD Consents and Labels Consent Signed: Informed Consent obtained and on the chart Labels Verified With Patient: Yes Indications: Jaz Sanders, is a 29 year old No obstetric history on file. female here today for intrauterine insemination. IUI # 2. Cycle Day: 14 Last menstrual period: 06/24/2024 [place] Protocol: UNIVERSAL PROTOCOL / SAFETY CHECKLIST Procedure [...] Stacy Banuelos MD documented in this encounter [facility] 07-07-2024 Note HNO ID: [id number] Author: NICHELLE GONZALEZ, ? Service: ? Author Type: Biochemist Type: Progress Notes Filed: 07/07/2024 09:41 Note Text: Thaw for IUI Nichelle Gonzalez [facility] 07-07-2024 History of Presen t illness Narrative Thaw for IUI Nichelle Gonzalez documented in this encounter [facility] 07-06-2024 Telephone encounter Note Called the pt back. Pt had an US done 07/04/24--Possible small 4 mm intracervical canal polyp. No other abnormal findings. Advised to move on with IUI tomorrow. FYI: Dr. Guy and Silvia, FIRE RANGE TECHNICIAN. Please let me know if any different instructions. Becki Isaacs PA-C July 06, 2024 3:26 PM [facility] 07-06-2024 Miscellaneous Notes Called the pt back. Pt had an US done 07/04/24--Possible small 4 mm intracervical canal polyp. No other abnormal findings. Advised to move on with IUI tomorrow. FYI: Dr. Guy and Silvia, FIRE RANGE TECHNICIAN. Please let me know if any different instructions. Becki Isaacs PA-C July 06, 2024 3:26 PM Patient states she is calling back unsure about if she is okay to proceed with iui tomorrow. Please call patient. documented in this encounter [facility] 07-06-2024 Telephone encounter Note Patient states she is calling back unsure about if she is okay to proceed with iui tomorrow. Please call patient. [facility] 07-06-2024 Telephone encounter Note See other TE for 07/04 Marianna Ward RN July 06, 2024 11:17 AM [facility] 07-06-2024 Miscellaneous Notes See other TE for 07/04 Marianna Ward RN July 06, 2024 11:17 AM On day 11 now, inquiring about if okay to proceed with iui with cervical polyp. Patient believes it will be tomorrow or Tuesday for iui- inquiring if polyp needs to be removed first. documented in this encounter [facility] 07-05-2024 Telephone encounter Note On day 11 now, inquiring about if okay to proceed with iui with cervical polyp. Patient believes it will be tomorrow or Tuesday for iui- inquiring if polyp needs to be removed first. [facility] 07-04-2024 Telephone encounter Note Spoke with [...] ovulate on Tuesday or Tuesday. Shelly Hernandez APRN.YOUTH DEVELOPMENT PROFESSIONAL July 04, 2024 7:30 PM [facility] 07-04-2024 Miscellaneous Notes Spoke with Jaz [...] 2024 7:30 PM documented in this encounter [facility] 07-04-2024 Note HNO ID: [id number] Author: IGNACIO GUY MD Service: ? Author Type: Physician Type: Progress Notes Filed: 07/04/2024 16:27 Note Text: 1 [facility] 07-04-2024 History of Presen t illness Narrative 1 documented in this encounter [facility] 06-09-2024 Note HNO ID: [id number] Author: IGNACIO GUY MD Service: ? Author [...] Cycle Day: 13 Last menstrual period: 05/28/2024 [place] Protocol: UNIVERSAL PROTOCOL / SAFETY CHECKLIST Procedure [...] was discussed with the patient or authorized sales representative electric service. The patient or authorized sales representative electric service has agreed to proceed with the sensitive examination. (Sensitive examination includes inspection and/or palpation of the breasts, pelvis, prostate and anorectal regions) Patient declined mutuel teller. iVdhi Sheldon MD IUI IUI Date: 06/09/24 Partner's [...] stopped. Will get pelivc scan here at [facility] if not with this IUI prior pt proceeding with another attmept at IUI. Ignacio Guy MD June 09, 2024 12:30 PM SIGNATURE: Vidhi Sheldon MD PATIENT NAME: Jaz Sanders DATE: June 09, 2024 TIME: 12:01 PM [facility] 06-09-2024 Procedure note WHI JAMEL IUI PROCEDURE NOTE Date: 06/09/2024 Primary Proceduralist: Vidhi Sheldon MD Consents and Labels Consent Signed: Informed Consent obtained and on the chart Labels Verified With Patient: Yes Indications: Jaz Sanders, is a 29 year old No obstetric history on file. female here today for intrauterine insemination. IUI # 1. Cycle Day: 13 Last menstrual period: 05/28/2024 [place] Protocol: UNIVERSAL PROTOCOL / SAFETY CHECKLIST Procedure [...] was discussed with the patient or authorized sales representative electric service. The patient or authorized sales representative electric service has agreed to proceed with the sensitive examination. (Sensitive examination includes inspection and/or palpation of the breasts, pelvis, prostate and anorectal regions) Patient declined mutuel teller. Vidhi Sheldon MD IUI IUI Date: 06/09/24 [...] stopped. Will get pelivc scan here at [facility] if not with this IUI prior pt proceeding with another attmept at IUI. Ignacio Guy MD June 09, 2024 12:30 PM SIGNATURE: Vidhi Sheldon MD PATIENT NAME: Jaz Sanders DATE: June 09, 2024 TIME: 12:01 PM [facility] Work Phone: 06-09-2024 Procedure note WHI [...] Cycle Day: 13 Last menstrual period: 05/28/2024 [place] Protocol: UNIVERSAL PROTOCOL / SAFETY CHECKLIST Procedure [...] was discussed with the patient or authorized sales representative electric service. The patient or authorized sales representative electric service has agreed to proceed with the sensitive examination. (Sensitive examination includes inspection and/or palpation of the breasts, pelvis, prostate and anorectal regions) Patient declined mutuel teller. Vidhi Sheldon MD IUI IUI Date: 06/09/24 [...] stopped. Will get pelivc scan here at [facility] if not with this IUI prior pt proceeding with another attmept at IUI. Ignacio Guy MD June 09, 2024 12:30 PM SIGNATURE: Vidhi Sheldon MD PATIENT NAME: Jaz Sanders DATE: June 09, 2024 TIME: 12:01 PM documented in this encounter [facility] 06-09-2024 Note HNO ID: [id number] Author: NICHELLE GONZALEZ, ? Service: ? Author Type: Biochemist Type: Progress Notes Filed: 06/09/2024 12:30 Note Text: IUI Cryobio #: [id number] Washed frozen sample Post: 42 m/ml, 74% Insem#: 15.5 million [facility] 06-09-2024 History of Presen t illness Narrative IUI Cryobio #: [id number] Washed frozen sample Post: 42 m/ml, 74% Insem#: 15.5 million IUI specimen released to provider Nichelle Gonzalez June 09, 2024 11:24 AM documented in this encounter [facility] 06-09-2024 Note HNO ID: [id number] Author: NICHELLE GONZALEZ, ? Service: ? Author Type: Biochemist Type: Progress Notes Filed: 06/09/2024 11:48 Note Text: Thaw for IUI Nichelle Gonzalez [facility] 06-09-2024 History of Presen t illness Narrative Thaw for IUI Nichelle Gonzalez documented in this encounter [facility] 06-09-2024 Note HNO ID: [id number] Author: NICHELLE GONZALEZ, ? Service: ? Author Type: Biochemist Type: Progress Notes Filed: 06/09/2024 12:30 Note Text: IUI specimen released to provider Nichelle Gonzalez June 09, 2024 11:24 AM [facility] 05-09-2024 Instructions Shelly Hernandez APRN.YOUTH DEVELOPMENT PROFESSIONAL - 05/09/2024 9:08 AM EST Images from the original note were not included. REPRODUCTIVE ENDOCRINOLOGY AND INFERTILITY DONOR SPERM HANDOUT Donor Sperm Checklist: Complete Next Steps: Progesterone blood test 6-8 days after your LH surge - please let me know the test result when you get it. IUI Procedure consent form - sent to you via Parcel today. Please sign when you can. Order sperm Financial Clearance - I sent your chart to the manager front office today. Treatment plan: Natural cycle/IUI x 3 cycles. Please schedule a follow up visit with Dr. Guy if you are not after 3 cycles. Sperm Ordering Instructions We need 1 vial per cycle. You will likely need 3-6 vials to establish a . You are welcome to buy more than one and store with the [facility]. Mailing address: Attention: Nichelle Gonzalez [id number] [place] [address], [address] [place] [address] Storage at the [facility] is available. Fees are yearly and only start once you are not actively trying. Please ask the financial team ([phone]) for current cost information. Donor Insemination Scheduling Instructions Please call during the first business day of your menstrual cycle to let the manager front office know you will be testing and doing [...] please call the [place] [address] Available every day, including weekends and holidays (except [place] and New Years.) Weekday IUI scheduling The day you get your LH surge, please call [phone] between 8:00am - 12:00pm to schedule your insemination for the next day. If you call after 12pm, we may not be able to schedule your appointment. IUI s are done by appointment only. You will make 2 appointments -an arrival time and a procedure time. [place]: [address] [place] [address] Available every day, including weekends and holidays (except [place] and New Years.) Available for IUI using fresh and frozen samples. Check in location for sperm wash and IUI: [address] [facility]. The sperm wash takes 60-90 minutes. Weekend/Holiday [...] want to do another IUI: Call the manager front office to make sure you are financially cleared. Ask to speak to an SKYLAR to confirm your treatment plan. Important phone number: [phone] documented in this encounter [facility] 05-09-2024 Note HNO ID: [id number] Author: SHELLY HERNANDEZ APRN.CNP Service: ? Author [...] visit. Either the patient or their legal sales representative electric service has been informed of the risks and [...] them. No double whammies. Sperm bank/donor #: Brennen [id number] Blood type: A negative CMV Status: negative Genetic carrier considerations: patient Myriad negative donor is a carrier of: CFTR, [id number] Vial types available: IUI and ART Considerations [...] which included preparing to see the patient, grbg-ft-nbut patient care, completing clinical documentation, obtaining and/or [...] team. Standard se (more content not included)... [facility] 05-09-2024 History of Presen t [...] visit. Either the patient or their legal sales representative electric service has been informed of the risks and benefits of -- and alternatives to -- treatment through a remote evaluation and consents to proceed with the evaluation remotely. Reason for visit: donor sperm follow up MARCUS Jaz () can Hinson present for donor sperm follow up Treatment [...] negative donor is a carrier of: CFTR, [id number] Vial types available: IUI and ART Considerations [...] which included preparing to see the patient, xmbf-bg-zhgc patient care, completing clinical documentation, obtaining and/or [...] missed in proofreading. documented in this encounter [facility] 05-02-2024 History of Presen t illness Narrative Psychosocial Consultation for Third Democrat Reproduction Virtual visit with audio and visual equipment POS 10 No SI, [place], Tobacco use On May 02, 2024, I met virtually with Jaz and Sravan Sanders. They were referred by Shelly Hernandez at [facility] for their required psychosocial consultation regarding third democrat reproduction. Relevant History Jaz, 29, and Demetrius, 26, have been together for 8.5 years and for 6.5 years. 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 The couple has been trying to [...] who was able to adopt him. The Lynda's have already chosen a donor from [employer] in [place]. They chose this donor because he is CMV-, met their genetic screen (he does not have a history of bipolar disorder) and is phenotypically very similar to Demetrius. He is also listed as open ID. With regard to disclosure, the Lynda's are prepared and interested in disclosure to offspring and we reviewed the data on disclosure at a young age and discussed books that are for children to explain the concept. We also discussed the possibility of donor siblings and the lack of anonymity in third democrat reproduction. They are very comfortable with disclosure. [...] the psychosocial issues inherent in this third democrat reproductive option. documented in this encounter [facility] Work Phone: 03-11-2024 Note HNO ID: [id number] Author: SHELLY HERNANDEZ APRN.JARROD Service: ? Author [...] visit. Either the patient or their legal sales representative electric service has been informed of the risks and [...] Practice cycle Plan: Episode created.Reviewed checklist - Parcel message sent Practice cycle: recommended OPKs to [...] which included preparing to see the patient, nigf-sq-ufwq patient care, completing clinical documentation, obtaining and/or [...] grammatical and typographical errors missed in proofreading. [facility] 03-11-2024 History of Presen t [...] visit. Either the patient or their legal sales representative electric service has been informed of the risks and [...] Practice cycle Plan: Episode created.Reviewed checklist - Mobile Event Guidet message sent Practice cycle: recommended OPKs to [...] which included preparing to see the patient, ujuw-nk-edvt patient care, completing clinical documentation, obtaining and/or [...] missed in proofreading. documented in this encounter [facility] 03-09-2024 Instructions Shelly Hernandez APRN.CNP - [...] please call the office. ~Silvia Hernandez APRN.CNP [phone] Donor Sperm Checklist Donor Sperm Labs Mandatory [...] Sravan must be present Amanda Gillespie MD ([place]) - [phone] Rani Sims (Filomena Hernandez) - [phone] - virtual visit Saúl Enriquez, - virtual [...] to date). Please get scheduled with your film tests checker or pcp if needed. Practice with Ovulation Predictor Kit (OPK) First day of full flow is cycle day #1. Start using on ovulation predictor kit on cycle day 10. Use your OPK once a day, in the morning with your second urine of the day. Send in a EDMdesigner message when you get a positive OPK. [...] Once your checklist is complete, please call [phone] to get scheduled for a donor sperm follow up appointment. Sperm Bank Website [place] [facility] https://www.cryobank.com/ [facility] https://cryobio.com/ [facility] https://www.cryosinternational. com/ [facility] https://fairfaxcryobank.com/ [place] https://www.Vivakorestspermbank.co m/ [facility] [place] https://www.thespermbankofca.or g/ [place] [facility] https://www.Musicmetric.co m/ [facility] https://www.[employer] Cloud Technologiestex.hipages.com.au/ If you would like to start browsing [...] is needed. Test: CPT Code: Blood type 80823 HIV 06312 CMV IgG 65617 CMV IgM 76335 Syphilis 74647 Hepatitis B Surface Ag 37920 Hepatitis B Core Ab, IgG and IgM 90900 Hepatitis C Ab 13570 Rubella 07582 Varicella 51889 Chlamydia 61529 Gonorrhea 57723 For the above tests, reference the diagnosis code of Z11.9 documented in this encounter [facility] 02-28-2024 Plan of care note Assessment- [...] for three cycles. They will meet with FIRE RANGE TECHNICIAN to review the IUI checklist and sign consents. I spent a total of 45 minutes on the date of the service which included preparing to see the patient, mlof-ga-dfxw patient care, completing clinical documentation, counseling and educating the patient/family/caregiver, and ordering medications, tests, or procedures. 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 rates discussed and use of meds vs natural cycle was discussed. Given her periods are regular I would recommend timed IUI for now and hol ff on the HSG for three cycles. They will meet with FIRE RANGE TECHNICIAN to review the IUI checklist and sign consents. I spent a total of 45 minutes on the date of the service which included preparing to see the patient, puxq-zy-cjkr patient care, completing clinical documentation, counseling and educating the patient/family/caregiver, and ordering medications, tests, or procedures. Ignacio Guy MD documented in this encounter [facility] 02-28-2024 Instructions Ignacio Guy MD - 02/28/2024 2:47 PM EST Dear Jaz Sanders Using donor sperm at the [facility] requires some set up (outlined below). Requirements to use donor sperm at the [facility]: Teaching with [employer] SKYLAR - please call [phone] to schedule a donor sperm teach with [...] to help with the donor selection process. [employer] Carrier Screen is the test ordered. Processing time takes 2-3 weeks. If your insurance doesn't cover it, the self-pay de oliveira is ~$250. Counselor You and your partner/spouse (if applicable) must see a counselor for a donor sperm assessment. Amanda Gillespie MD ([place]) - [phone] Rani Lamar & Ramonita) - [phone] Doris Lama ([place]) - [phone] Consent form - must be signed by [...] Required Tests Test: CPT Code: Blood type 36489 HIV 54384 CMV IgG 80500 CMV IgM 29722 Syphilis 93871 Hepatitis B Surface Ag 36957 Hepatitis B Core Ab, IgG and IgM 14544 Hepatitis C Ab 49892 Rubella 35873 Varicella 18015 Chlamydia 12062 Gonorrhea 06158 For the above tests, reference the diagnosis code of Z31.49. [employer] Foresight Carrier Screen - [employer] will check coverage for you. For this [...] your test results into consideration. Sperm Bank [facility] [place] [facility] ([place]) [facility] [place] [facility] [employer] ([facility] [place]) [place] [facility] *Do not order any sperm until your checklist is complete. We will review ordering instructions at your follow up visit. Next Steps: Call insurance to verify coverage for donor sperm panel. Schedule donor sperm teach with my nurse practitioner, Silvia Hernandez. Ignacio Guy MD [phone] documented in this encounter [facility] 02-28-2024 Note HNO ID: [id number] Author: IGNACIO GUY MD Service: ? 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 They will meet with FIRE RANGE TECHNICIAN to review the IUI checklist and sign consents. I spent a total of 45 minutes on the date of the service which included preparing to see the patient, sbrh-jr-xqae patient care, completing clinical documentation, counseling and educating the patient/family/caregiver, and ordering medications, tests, or procedures. Ignacio Guy MD [facility] 02-28-2024 History of Presen t [...] OB History Obstetric History No data available PARTY PLAN SALES HOST/HOSTESS HISTORY: Patient's last menstrual period was 02/18/2024. 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 They will meet with FIRE RANGE TECHNICIAN to review the IUI checklist and sign consents. I spent a total of 45 minutes on the date of the service which included preparing to see the patient, axro-pu-cmjj patient care, completing clinical documentation, counseling and educating the patient/family/caregiver, and ordering medications, tests, or procedures. Ignacio Guy MD documented in this encounter [facility] 02-27-2024 Evaluation note Diagnosis Onset Date Resolution Degenerative superior labral ltnsbics-sv-qrtigljbc (SLAP) tear of right matthias acute Novembe [...] Novem wenceslao 2023 2:25pm Degenerative superior labral ibyezxww-tc-yqyvfgvil (SLAP) tear of right matthias acute April 23, 2024 2:29pm Laxity of ligament acute 2024 2:29pm Multidirectional instability of glenohumeral joint acute April 23, 2024 2:29pm Other instability, right shoulder acute April 23 2:29pm Right carpal tunnel syndrome acute April 23 2:29pm Status post arthroscopy of right shoulder acute April 23, 2 025 2:29pm [facility] Work Phone: 1(850) 974-320311-11-2024 Evaluation note* Diagnosis Onset Date Resolution Status Admit Date Degenerative superior labral ttvgbpov-dm-crslretdn (SLAP) tear of right matthias acute February 27, 2024 2:25pm Laxity of ligament acute Novem er 2023 2:25pm Multidirectional instability of glenohumeral joint acute February 162023 2:25pm Other instability, right shoulder acute February 26, 2 024 2:25pm Right carpal tunnel syndrome acute February 27, 2024 2:25pm Status post arthroscopy of right shoulder acute February 26, 2 024 2:25pm Status post surgery noneactive Novem wenceslao 2023 2:25pm Degenerative superior labral rpjexqnf-qa-hyxerqsei (SLAP) tear of right matthias acute April [...] 8:29am Other chronic pain acute 2024 8:29am [facility] Work Phone: 1(333) 964-448411-04-2024 History of Present illness Narrative* Marsha AsifSANAZ - 02/20/2024 2:50 PM EST Reason for [...] nursing note reviewed. Exam conducted with a mutuel teller present. Vitals: Estimated body mass index is [...] behalf of: TRENT Engle [id number] Note [id number]#1.00[facility]09-03-2024 Evaluation note* Diagnosis Onset Date Resolution Status Admit Date Degenerative superior labral qjrjokle-ii-ainvltzfz (SLAP) tear of right amtthias acute December 20, 2023 10:11am Laxity of ligament acute Septem wenceslao 2023 10:11am Multidirectional instability of glenohumeral joint acute December 20, 2023 10:11am Other instability, right shoulder acute December 19 10:11am Right carpal tunnel syndrome acute December 20, 2023 10:11am Status post arthroscopy of right shoulder acute December 19 10:11am Status post surgery noneactive Septe mber 2023 10:11am Degenerative superior labral ihdbuicj-cw-udqhsyqdt (SLAP) tear of right matthias acute January 16 11:58am Laxity of ligament acute Octobe r 2023 11:58am Multidirectional instability of glenohumeral joint acute January 11:58am Other instability, right shoulder acute January 16 11:58am Right carpal tunnel syndrome acute January 17, 2024 11:58am Status post arthroscopy of right shoulder acute January 16 11:58am Status post surgery noneactive Octob er 2023 11:58am Degenerative superior labral cerknbkh-hm-ydfwiwqcy (SLAP) tear of right matthias acute February 27, 2024 2:25pm Laxity of ligament acute Novemb er 2023 2:25pm Multidirectional instability of glenohumeral joint acute February 162023 2:25pm Other instability, right shoulder acute February 26 2:25pm Right carpal tunnel syndrome acute February 27, 2024 2:25pm Status post arthroscopy of right shoulder acute November 11th, 2 024 2:25pm Status post surgery noneactive Novem 2023 2:25pm [facility] Work Phone: 1(387) 941-432807-17-2024 NoteEducation Materials Orthopedics Musculoskeletal Pain Musculoskeletal pain [...] mouth or applied to the skin. Take fxoe-wmt-fgznihu and prescription medicines only as told by [...] provider. Document Revised: 08/07/2020 Document Reviewed: 07/16/2020 [employer] Patient Education ? 2022 [id number] Evaluation note* Encounter Date Diagnosis Assessment Notes Treatment Notes Treatment Clinical Notes Apr, Intertrigo (ICD-10 - L30.4) W-21 Other 01-30-2024 Evaluation note* Encounter Date Diagnosis [...] pain of right shoulder (ICD-10 - M25.511) W-21 Other 01-05-2024 Evaluation note* Encounter Date Diagnosis Assessment Notes Treatment Notes Treatment Clinical Notes Apr, Other iron deficiency anemia (ICD-10 - D50.8) W-21 Other 12-28-2023 Evaluation note* Encounter Date Diagnosis Assessment Notes Treatment Notes Treatment Clinical Notes Mar, Vitamin D deficiency (ICD-10 - E55.9) W-21 Other 10-23-2023 Evaluation note* Encounter Date Diagnosis [...] agreement for this and referral was given. W-21 Other 09-21-2023 Evaluation note* Encounter Date Diagnosis Assessment Notes Treatment Notes Treatment Clinical Notes Dec, Other iron deficiency anemia (ICD-10 - D50.8) Dec, Low folic acid (ICD-10 - E53.8) W-21 Other 09-11-2023 Evaluation note* Encounter Date Diagnosis [...] continue to do the exercises for strength. W-21 Other 07-06-2023 Evaluation note* Encounter Date Diagnosis Assessment Notes Treatment Notes Treatment Clinical Notes Oct, Iron deficiency (ICD-10 - E61.1) W-21 Other 06-26-2023 Evaluation note* Encounter Date Diagnosis [...] symptoms and causing pain down the arm. W-21 Other 06-15-2023 Evaluation note* Encounter Date Diagnosis [...] verbalizes understanding and agrees c tx plan. W-21 Other 05-10-2023 Evaluation note* Encounter Date Diagnosis [...] follow-up if no improvement. She verbalizes understnading. W-21 Other 05-05-2023 Evaluation note* Encounter Date Diagnosis Assessment Notes Treatment Notes Treatment Clinical Notes August, Acquired hypothyroidism (ICD-10 - E03.9) Discussed with pt symptoms and lab resutls. Discussed treatment and evaluation. Referral placed to Dr. Sinclair. 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 Patient has an appointment with her SUPERVISOR ORCHARD next week. Educated her to go to ED if she continues to have heavy bleeding with symptoms, she verbalized understanding. We will send patient home on iron supplements and docusate as needed for constipation Patient is being discharged today. Documented By: Farhad Gallego MD 06/11/22 1306 Signed By: <Electronically signed by Farhad Gallego MD> 06/11/22 1316 [facility] Work Phone: 1(807) 680-722002-23-2023 History and physical note Author Farhad Gallego [facility] June 10, 2022 6:28pm Note Date/Time June 10, 2022 5:39pm [facility] [address] [place] [address] Hospitalist H&P Signed Patient: Jaz Sanders MR#: [id number] : 1995 Acct:[id number] Age/Sex: 27 / F Adm Date: 3 Loc: Room: [address] [place] [address] Type: ADM INOo Attending Dr: Farhad Gallego MD Copies to: MD Amanda Correa, CARDROOM SUPERVISOR, YOUTH DEVELOPMENT PROFESSIONAL~ HPI DATE OF EXAMINATION: 06/10/22 CHIEF COMPLAINT: [...] % (Auto) 41.3 % (.) 06/10/22 14:51 Fannin % (Auto) 6.8 % (.) 06/10/22 14:51 Eos % (Auto) 5.0 % (.) 06/10/22 14:51 Baso % (Auto) 1.8 % (.) 06/10/22 14:51 Nucleat RBC Rel Count 0.1 /100 WBC (0-0.5) 06/10/22 14:51 Neut # (Auto) 2.4 x10E3/uL (1.8-7.7) 06/10/22 14:51 Lymph # (Auto) 2.2 x10E3/uL (1.00-4.8) 06/10/22 14:51 Fannin # (Auto) 0.4 x10E3/uL (0.0-0.8) 06/10/22 14:51 [...] pH 5.5 (5.0-9.0) 06/10/22 15:40 Ur Specific Robins 1.010 (1.001-1.030) 06/10/22 15:40 Urine Protein Negative [...] code Documented By: Farhad Gallego MD 06/10/22 1736 Signed By: <Electronically signed by Farhad Gallego MD> 06/10/22 1828 [facility] Work Phone: 1(859) 861-547901-04-2023 Evaluation note* Encounter Date Diagnosis Assessment Notes [...] for bleeding. Keep appointment with Dr. Elder. W-21 Other 12-13-2022 Evaluation note* Encounter Date Diagnosis Assessment Notes Treatment Notes Treatment Clinical Notes Mar, Arthritis of shoulder (ICD-10 - M19.019) W-21 Other 12-06-2022 Evaluation note* Encounter Date Diagnosis [...] - F90.0) [facility] due to she is currently treating her for anxiety and depression. And she has discussed this with Julieta and she had offered her treatement for this. W-21 Other 11-30-2022 Evaluation note* Encounter Date Diagnosis Assessment Notes Treatment Notes Treatment Clinical Notes Feb, Gastroesophageal ref lux disease without esophagitis (ICD-10 - K21.9) W-21 Other 10-24-2022 Evaluation note* Encounter Date Diagnosis [...] to trial the ointment. Follow-up as needed. W-21 Other 05-11-2022 NoteEchocardiology Procedure Exam Date/Time Accession # Ordering Echo Transthoracic 08/25/2021 15:36 EDT [id number] Jay DAVEY, Samir Rivera CPT code 00241 Reason for Exam (Echo Transthoracic Complete) Bradycardia;Other [...] Robin Salazar MD Transcribed by: kerry Technologist: [facility]04-21-2022 Note Echocardiology Procedure Exam Date/Time Accession # Ordering ECG Stress Exercise 08/06/2021 10:22 EDT [id number] Jay DAVEY, Samir Rivera CPT code 40063 Reason for Exam (ECG Stress Exercise) bradycardia;Other [...] Robin Salazar MD Transcribed by: nakul Technologist: [facility]03-31-2022 Evaluation note* Encounter Date Diagnosis Assessment [...] school on two different occasions.Order faxed to [facility]. Jun, Gastroesophageal reflux disease without esophagitis (ICD-10 [...] Jun, Former smoker (ICD-1 0 - Z87.891) [facility] Other Evaluation + Plan note Future Appointments Appointment Date:08/06/2021 09:30:00 AM Scheduled Provider: Location:.[facility] Appointment Type:CV Stress (FT) Appointment Date:08/06/2021 11:00:00 AM Scheduled [facility]: [facility] Type:CV Holter/Event (FT) Future Scheduled Tests Radiology* Echo Transthoracic Complete 07/24/21 * ECG [facility]ments Appointment Date:08/11/2021 10:30:00 AM Scheduled Provider:Samir Thompson MD Location:.Cardiology [facility] Appointment Type:Cardiology Follow Up (FT) [facility] Future Appointments Appointment Date:09/01/2021 02:30:00 PM Scheduled Provider:Samir Thompson MD Location:.Cardiology [facility] Appointment Type:Cardiology [facility] (FT) [facility] Future Appointments Appointment Date:2022 11:15:00 AM Scheduled Provider:Samir Thompson MD Location:.Cardiology Clinic Appointment Type[facility]iology [facility] ([facility] noteNo InformationN[facility] Other Evaluommqx noteNo assessment information available [facility] Work Phone: evaluyufor note* Diagnosis Onset Date Resolution Status Anemia acute Anxiety and depression acute Bipolar disorder acute Iron deficiency anemia acute [facility] Work Phone: Evaluation note* Diagnosis Onset Date Resolution Status Abdominal pain acute Chills acute Constipation acute Fever acute H/O gastric sleeve acute Vomiting acute [facility] Work Phone: Evaluation note* Diagnosis Onset Date Resolution Status [id number] acute Laxity of ligament acute Multidirectional instability of glenohumeral joint acute Numbness of right hand acute Other instability, right shoulder acute [facility] Work Phone: Evaluation note* Diagnosis Onset Date Resolution Status [id number] acute Laxity of ligament acute Multidirectional instability of glenohumeral joint acute Numbness of right hand acute Other instability, right shoulder acute [id number] acute Laxity of ligament acute Multidirectional instability of glenohumeral joint acute Numbness of right hand acute Other instability, right shoulder acute Right carpal tunnel syndrome acute [facility] Work Phone: Evaluation note* Diagnosis Onset Date Resolution Status [id number] acute Laxity of ligament acute Multidirectional instability of glenohumeral joint acute Numbness of right hand acute Other instability, right shoulder acute [id number] acute Laxity of ligament acute Multidirectional instability of glenohumeral joint acute Numbness of right hand acute Other instability, right shoulder acute Right carpal tunnel syndrome acute [id number] acute Laxity of ligament acute Multidirectional instability of glenohumeral joint acute Other instability, right shoulder acute Right carpal tunnel syndrome acute [facility] Work Phone: Evaluation note* Diagnosis Onset Date Resolution Status [id number] acute Laxity of ligament acute Multidirectional instability of glenohumeral joint acute Numbness of right hand acute Other instability, right shoulder acute [id number] acute Laxity of ligament acute Multidirectional instability of glenohumeral joint acute Numbness of right hand acute Other instability, right shoulder acute Right carpal tunnel syndrome acute [id number] acute Laxity of ligament acute Multidirectional instability of glenohumeral joint acute Other instability, right shoulder acute Right carpal tunnel syndrome acute [id number] acute Laxity of ligament acute Multidirectional instability of glenohumeral joint acute Other instability, right shoulder acute Right carpal tunnel syndrome acute Status post arthroscopy of right shoulder acute [facility] Work Phone: Evaluation note* Diagnosis Onset Date Resolution Status [id number] acute Laxity of ligament acute Multidirectional instability of glenohumeral joint acute Numbness of right hand acute Other instability, right shoulder acute Right carpal tunnel syndrome acute [id number] acute Laxity of ligament acute Multidirectional instability of glenohumeral joint acute Other instability, right shoulder acute Right carpal tunnel syndrome acute [id number] acute Laxity of ligament acute Multidirectional instability of glenohumeral joint acute Other instability, right shoulder acute Right carpal tunnel syndrome acute Status post arthroscopy of right shoulder acute Status post surgery noneacti ve [id number] acute Laxity of ligament acute Multidirectional instability of glenohumeral joint acute Other instability, right shoulder acute Right carpal tunnel syndrome acute Status post arthroscopy of right shoulder acute Status post surgery noneacti ve [facility] Work Phone: Evaluation note* Diagnosis Well woman exam with routine gynecological exam Routine gynecological examination [facility] 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 [facility]* Diagnosis Reproductive mgmt, 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 [facility] Diagnosis Procreative management- Primary Unspecified procreative management [facility] Diagnosis Female infertility- Primary Female infertility of unspecified origin documented [facility]* Diagnosis Fertility testing- Primary Female infertility Female infertility of unspecified origin documented [facility]* Diagnosis Encounter for fertility planning [Z31.89]- Primary Other specified procreative management documented [facility]* Diagnosis Encounter for artificial insemination- Primary Artificial insemination documented in this [facility]* Diagnosis 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)- Primary [facility]* Diagnosis 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)- Primary [facility] in [facility]* Diagnosis Abnormal thyroid function test- Primary Nonspecific abnormal results of thyroid function study 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[facility]HCC) Unspecified nontoxic nodular goiter Vitamin D deficiency [facility]* Diagnosis 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) documented [facility] encounter [facility]* Diagnosis Early stage of (HCC) state, incidental documented in this encounter [facility] note* Diagnosis Amenorrhea Absence of menstruation 9 weeks gestation of Missed menses , unspecified gestational age Encounter for supervision of normal first in first trimester [facility]* Diagnosis 13 weeks gestation of ([facility]-HCC) Second trimester ([facility]) state, incidental Thyroid disease Unspecified disorder of thyroid H/O gastric sleeve H/O iron deficiency anemia resulting from in vitro fertilization in first trimester ([facility]) documented in [facility] encounter [facility]* Diagnosis Well woman exam with routine gynecological exam Routine gynecological examination Exposure to STD Second trimester ([facility]-HCC) state, incidental 18 weeks gestation of ([facility]-HCC) Need for maternal serum alpha-protein (MSAFP) screening ([facility]) Screening, , for anatomic survey ([facility]) Encounter for anatomic survey Thyroid disease Unspecified disorder of thyroid [facility] N[facility]ative - Reported* Type Description Date Surgical History cholecystectomy 2014 Surgical History gastric sleeve 2020 W-21 Other History general Narrative - Reported* Type Description Date Medical History Hypothyroidism Medical History MNG Medical History enuresis Medical History extreme obesity Medical History GERD with esophagitis Medical History headache Medical History Goiter, nontoxic, multinodular Medical History Vitamin D deficiency Surgical History cholecystectomy 2014 Surgical History cholecystectomy 2016 Surgical History gastric sleeve 2020 Hospitalization History Anemia 05/2022 W-21 Other Hospital course Narrative No data available for this section [facility] Discharge instructions No data available for this section [facility] Discharge instructions Additional Instructions POSTOPERATIVE INSTRUCTIONS [...] DO Orthopedic Surgeon Critical [facility] Hospital Office: [address] [place] [address] Office number: [phone] [facility] Work Phone: Hospital Discharge instructionsAmbulatory Orders* Referral to Allergy/Immunology Time Frame: 04/26/24, Location: None Selected [facility] Work Phone: Hospital Discharge instructions Additional Instructions We evaluated you for your vaginal bleeding in . Your ultrasound was normal, the baby has a good heart rate, measuring at 13 weeks and 1 day. Your cervix was closed. Follow-up closely with your SUPERVISOR ORCHARD. Return to the emergency department if you develop any worsening or concerning symptoms.[facility] Work Phone: InstructionsNot on filedocumented in this encounter [facility] SystemReason for referral (narrative)No reason for referral information availableBlanchard [facility] Work Phone: Reason for visit Narrative* Consult, Test, Treat (Routine) - Closed Specialty Diagnoses / Procedures Referred By Contact Referred To Contact [facility] Diagnoses Encounter for procreative management, unspecified Encounter for other procreative management Procedures ARTIFIC INSEMINATION INTRAUTERIN THAWING CRYOPRESERVED SPERM/SEMEN EACH ALIQUOT Daniel Hanna APRN.YOUTH DEVELOPMENT PROFESSIONAL [address] [place] [address] Phone: tel:[phone] fax: [phone] Reproductive Endocrinology Infertility [address] [place] [address] Phone: tel: Referral ID Status Reason Start Date Expiration Date V isits Requested Visits Authorized [id number] Closed Financial Clearance Required - Self Pay Patient Cleared - True Self-Pay required payment collected Do Not Bill Insurance - SP patient 05/17/2024 08/15/2024 2 2 [facility] for visit Narrative* Diagnostic Procedure Only (Routine) - Authorized Specialty Diagnoses / Procedures Referred By Contac t Referred To Contact [facility] Diagnoses Fertility testing Procedures PELVIC US WHI US PELVIC NONOBSTETRIC REAL-TIME IMAGE COMPLETE Ignacio Guy MD [address] [place] [address] Phone: tel: fax: [facility] [address] [place] [address] Referral ID Status Reason Start Date Expiration Date Visits Requested Visits Authorized [id number] Authorized Auto-Generate d Referral Patient Cleared - True Self-Pay required payment collected Do Not Bill Insurance - SP patient 06/09/2024 06/09/2025 2 2 [facility] for visit Narrative* Consult, Test, Treat (Routine) - Closed Specialty Diagnoses / Procedures Referred By Contact Referred To Contact [facility]OCRINOLOGY [facility] Diagnoses Encounter for procreative management, unspecified Encounter for other procreative management Procedures THAWING CRYOPRESERVED SPERM/SEMEN EACH ALIQUOT ARTIFIC INSEMINATION INTRAUTERIN Daniel Hanna APRN.YOUTH DEVELOPMENT PROFESSIONAL [address] [place] [address] Phone: tel: [phone] fax: [phone] Reproductive Endocrinology Infertility [address] [place] [address] Phone: tel: Referral ID Status Reason Start Date Expiration Date V isits Requested Visits Authorized [id number] Closed Patient Cleared - True Self-Pay required payment collected Do Not Bill Insurance - SP patient 06/29/2024 09/27/2024 2 2 [facility] for visit Narrative* Financial Clearance (Routine) - Closed Specialty Diagnoses / Procedures Referred By Contac t Referred To Contact FINANCE Diagnoses Collect for IUI-D washed sample Procedures THAWING CRYOPRESERVED SPERM/SEMEN EACH ALIQUOT ARTIFIC INSEMINATION INTRAUTERIN FINANCIAL CLEARANCE PHONE CALL Self Financial Clearance Phone Screening [place] [address] Referral ID Status Reason Start Date Expiration Date V isits Requested Visits Authorized [id number] Closed Financial Clearance Required - Self Pay Patient Cleared - True Self-Pay required payment collected Do Not Bill Insurance - SP patient 07/25/2024 09/23/2024 2 2 [facility] for visit Narrative* Diagnostic Procedure Only (Routine) - Closed Specialty Diagnoses / Procedures Referred By Contac t Referred To Contact [facility] Diagnoses 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) Procedures OBSTETRIC ULTRASOUND WHI US PREG UTERUS AFTER 1ST TRIMEST 1/ GESTATION Shelly Hernandez, CARDROOM SUPERVISOR.YOUTH DEVELOPMENT PROFESSIONAL [address] [place] [address] Phone: tel: fax: [address] [address] Referral ID Status Reason Start Date Expiration Date V isits Requested Visits Authorized [id number] Closed Auto-Generate d Referral 08/20/2024 08/20/2025 1 1 [facility] for visit Narrative* Diagnostic Procedure Only (Routine) - Closed Specialty Diagnoses / Procedures Referred By Contac t Referred To Contact [facility] Diagnoses Early stage of (HCC) Procedures OBSTETRIC ULTRASOUND WHI US PREG UTERUS AFTER 1ST TRIMEST 1/ GESTATION Shelly Hernandez, CARDROOM SUPERVISOR.YOUTH DEVELOPMENT PROFESSIONAL [address] [place] [address] Phone: tel: fax: [address] [address] Referral ID Status Reason Start Date Expiration Date V isits Requested Visits Authorized [id number] Closed Auto-Generate d Referral 09/03/2024 04/17/2025 1 1 [facility] Advance Directives Documents on File Type Date Recorded Patient Underwriting Analyst Expl anation ACP-Advance Directive ACP-Power of Manager Location Documents on File Type Date Recorded Patient Underwriting Analyst Expl anation ACP-Advance Directive ACP-Power of Manager Location Latest Code Status on File Code Status [...] drive you home after your procedure. Your security patrol driver must be 18 years of age [...] questions, call the Pre-Admission Testing Unit at [phone]. Day of Surgery/Procedure As a patient at [facility] you can expect quality medical and nursing care that is centered on your individual needs. Our goal is to make your surgical experience as comfortableas possible . Directions to the Surgery Center [facility] is located at [address] [place] [address]. Please pull into the Emergency parking lot and stop at the hematology oncology consultant dotson. We offer free hematology oncology consultant service for all our surgery patients, if you choose not to have hematology oncology consultant parking we have additional parking across the street.You will enter the facility following the [facility] sign. Please stop at the corporate receptionist desk where you will be checked in by the staff. If you have any questions please call [phone]. Transportation after your procedure. You will need a friend or family member to drive you home after your procedure. Your security patrol driver must be18 years of age or [...] may shave your face or neck. ? [place]arrison your teeth but do not swallow water. [...] or the day of surgery, please call [phone], or [phone] documented in this encounter* Instructions* Mukesh Montez, [...] 48 hours call the anesthesia department at [phone]. Will you need pain medication? The nerve [...] block please phone the Anesthesiology Department at [phone]. If the phone does not get answered please contact the hospital yoker machine operator at [phone] to page the propulsion systems engineer anesthesiologist Discharge Instructions for Bariatric Surgery You had a Laparoscopic Sleeve Gastrectomy (22940) surgery to treat obesity. Recovery from this [...] scheduled appointment, please call the office at [phone]. Call Your Doctor If Any of the [...] AM EST CLINICAL PHARMACY NOTE: MEDS TO [facility] Patient?: No Total # of Prescriptions Filled: 3 The following medications were delivered to the patient: Oxycodone-acetaminophen 5/325 mg tab Cyclobenzaprine 10 mg tab Enoxaparin 60mg /0.6 ml syr Total # of Interventions Completed: 1 Time Spent (min): 60 Additional Documentation:called case work aide about the high co-pay on the enoxaparin [...] Patient meets floor criteria. Awaiting bed placement. LINA * Cuca Cote RN - 05/06/2020 11:17 [...] Preoperative examination, unspecified Summary Purpose Family History Relationship Condition Age at Onset [...] SHOULDER DI SCUSS SURGERY Reason for Visit [id number] Laxity of ligament Multidirectional instability of glenohumeral joint Numbness of right hand Other instability, right shoulder Chief Complaint OP SP RT SHOULDER DI SCUSS SURGERY R20.0 Reason for Visit [id number] Laxity of ligament Multidirectional instability of glenohumeral joint Numbness of right hand Other instability, right shoulder Chief Complaint OP SP RT SHOULDER DI SCUSS SURGERY R20.0 EMG RESULTS Reason for Visit [id number] Laxity of ligament Multidirectional instability of glenohumeral joint Numbness of right hand Other instability, right shoulder [id number] Laxity of ligament Multidirectional instability of glenohumeral joint Numbness of right hand Other instability, right shoulder Right carpal tunnel syndrome Chief Complaint OP SP RT SHOULDER DI SCUSS SURGERY R20.0 EMG RESULTS Shoulder pain Reason for Visit [id number] Laxity of ligament Multidirectional instability of glenohumeral joint Numbness of right hand Other instability, right shoulder [id number] Laxity of ligament Multidirectional instability of glenohumeral joint Numbness of right hand Other instability, right shoulder Right carpal tunnel syndrome Chief Complaint OP SP RT SHOULDER DI SCUSS SURGERY R20.0 EMG RESULTS Shoulder pain H & P RIGHT SHOULDER ARTHROSCOPY 12-07-23 Reason for Visit [id number] Laxity of ligament Multidirectional instability of glenohumeral joint Numbness of right hand Other instability, right shoulder [id number] Laxity of ligament Multidirectional instability of glenohumeral joint Numbness of right hand Other instability, right shoulder Right carpal tunnel syndrome [id number] Laxity of ligament Multidirectional instability of glenohumeral joint Other instability, right shoulder Right carpal tunnel syndrome Chief Complaint OP SP RT SHOULDER DI SCUSS SURGERY R20.0 EMG RESULTS Shoulder pain H & P RIGHT SHOULDER ARTHROSCOPY 12-07-23 Shoulder pain Shoulder pain Reason for Visit [id number] Laxity of ligament Multidirectional instability of glenohumeral joint Numbness of right hand Other instability, right shoulder [id number] Laxity of ligament Multidirectional instability of glenohumeral joint Numbness of right hand Other instability, right shoulder Right carpal tunnel syndrome [id number] Laxity of ligament Multidirectional instability of glenohumeral joint Other instability, right shoulder Right carpal tunnel syndrome Chief Complaint OP SP RT SHOULDER DI SCUSS SURGERY R20.0 EMG RESULTS Shoulder pain H & P RIGHT SHOULDER ARTHROSCOPY 12-07-23 Shoulder pain Shoulder pain 10-14 DAYS POST OP Reason for Visit [id number] Laxity of ligament Multidirectional instability of glenohumeral joint Numbness of right hand Other instability, right shoulder [id number] Laxity of ligament Multidirectional instability of glenohumeral joint Numbness of right hand Other instability, right shoulder Right carpal tunnel syndrome [id number] Laxity of ligament Multidirectional instability of glenohumeral joint Other instability, right shoulder Right carpal tunnel syndrome [id number] Laxity of ligament Multidirectional instability of glenohumeral joint Other instability, right shoulder Right carpal tunnel syndrome Status post arthroscopy of right shoulder Chief Complaint R20.0 EMG RESULTS Shoulder pain H & P RIGHT SHOULDER ARTHROSCOPY 12-07-23 Shoulder pain Shoulder pain 10-14 DAYS POST OP R20.0 4 WEEKS Reason for Visit [id number] Laxity of ligament Multidirectional instability of glenohumeral joint Numbness of right hand Other instability, right shoulder Right carpal tunnel syndrome [id number] Laxity of ligament Multidirectional instability of glenohumeral joint Other instability, right shoulder Right carpal tunnel syndrome [id number] Laxity of ligament Multidirectional instability of glenohumeral joint Other instability, right shoulder Right carpal tunnel syndrome Status post arthroscopy of right shoulder Status post surgery [id number] Laxity of ligament Multidirectional instability of glenohumeral [...] for Visit Admit Date Degenerative superior labral bpwzlsad-vj-zasgnsdbw (SLAP) tear of right matthias December 20, 2023 10:11am Laxity of ligament December 20, 2023 10:11am Multidirectional instability of glenohum eral joint December 20, 2023 10:11am Other instability, right shoulder Septem 2023 10:11am Right carpal tunnel syndrome December 192023 10:11am Status post arthroscopy of right shoulde r December 20, 2023 10:11am Status post surgery December 20, 2023 10:11am Degenerative superior labral iorwgpvy-jm-wtswsovvt (SLAP) tear of right matthias January 17, 2024 11:58am Laxity of ligament January 17, 2024 11 :58am Multidirectional instability of glenohum eral joint January 17, 2024 11:58am Other instability, right shoulder Octobe 2023 11:58am Right carpal tunnel syndrome January 11:58am Status post arthroscopy of right shoulde r January 17, 2024 11:58am Status post surgery January 17, 2024 11 :58am Degenerative superior labral exlfsaao-rl-gsalcjrpo (SLAP) tear of right matthias February 27, [...] for Visit Admit Date Degenerative superior labral fuxcncqy-pi-cduagwmbr (SLAP) tear of right matthias February 27, 2024 2:25pm Laxity of ligament February 27, 2024 2:25pm Multidirectional instability of glenohum eral joint February 27, 2024 2:25pm Other instability, right shoulder Novemb er 2023 2:25pm Right carpal tunnel syndrome February 262023 2:25pm Status post arthroscopy of right shoulde r February 27, 2024 2:25pm Status post surgery February 27, 2024 2:25pm Degenerative superior labral xxmfppsk-sc-vadunrfsq (SLAP) tear of right matthias April 23, [...] for Visit Admit Date Degenerative superior labral tzvanvrl-tx-yjepbzkph (SLAP) tear of right matthias February 27, 2024 2:25pm Laxity of ligament February 27, 2024 2:25pm Multidirectional instability of glenohum eral joint February 27, 2024 2:25pm Other instability, right shoulder Novemb er 2023 2:25pm Right carpal tunnel syndrome February 262023 2:25pm Status post arthroscopy of right shoulde r February 27, 2024 2:25pm Status post surgery February 27, 2024 2:25pm Degenerative superior labral mizjvmdp-vl-yacqwvdju (SLAP) tear of right matthias April 23, [...] prego spotting October 18, 2024 1 0:16am Chief Complaint Admit Date 13 weeks prego spotting October 18, 2024 1 0:16am Unknown November 30, 2024 1: 13pm Reason for Referral Reason assess for surgical fixation of labrum tear, failed therapy exercises and steroid injection, MRI at [facility], Dr. 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) Referral Organization [facility] Family Medicin e Rice Referring Provider First Name Amanda Referring Provider Last Name Logan Referring Provider Specialty Nurse Destiney hall Referred Organization [employer] Referred Provider Darleen Sinclair Referred Address [address] [facility],[place], [place],[address] Referred Provider Specialty Endocrinolog y Referral Priority Routine General Notes Chelsi Avalos M 023 11:26:34 AM >Received today and waiting for office notes to be locked before sending referral Additional Source Comments Reason for Visit (unrecogniz ed section and content) Status Reason Specialty Diagnoses / Procedures Referre d By Contact Referred To Contact Diagnoses Morbid obesity (HCC) MORBID OBESITY, HYPOTHYROID Procedures CT LAP GASTRIC BYPASS/BEN-EN-Y XI LAPAROSCOPIC ROBOTIC GASTRIC BYPASS BEN-EN-Y, LIVER BIOPSY, EGD- GI UNIT SCHEDULED. Rashard Olivera, [address] [facility] [address] [place] [address] [facility] Reason Comments Gynecologic Exam Reason Comments Infertility Specialty Diagnoses / Procedures Referred By Saud tavera Referred To Contact [facility] ENDOCRINOLOGY & FERTILITY Diagnoses Female infertility, unspecified Procedures VV OFFICE/OP CONSLTJ NEW/EST PT MOD MDM 40 MINUTES Pcp, Ana Rosa, CARDROOM SUPERVISOR Whi Jamel [facility] [address] [place] [address] Referral ID Status Reason Start Date Expiration Date V isits Requested Visits Authorized [id number] Closed Financial Clearance Required - Self Pay Patient Cleared - True Self-Pay required payment collected Do Not Bill Insurance - SP patient Financial Clearance Not Required 12/30/2023 02/28/2024 1 1 Reason Comments donor sperm teach Specialty Diagnoses / Procedures Referred By Saud tavera Referred To Contact REPRODUCTIVE ENDOCRINOLOGY & FERTILITY Diagnoses Infertility counseling Procedures OFFICE/OUTPATIENT ESTABLISHED MOD MDM 30 MIN Shelly Hernandez G, CARDROOM SUPERVISOR.YOUTH DEVELOPMENT PROFESSIONAL [address] [place] [address] Whi Jamel [facility] [place] [address] [place] [address] Referral ID Status Reason Start Date Expiration Date V isits Requested Visits Authorized [id number] Closed Financial Clearance Required - Self Pay Patient Cleared - True Self-Pay required payment collected Do Not Bill Insurance - SP patient 02/28/2024 05/28/2024 1 1 Specialty Diagnoses / Procedures Referred By Saud tavera Referred To Contact REPRODUCTIVE ENDOCRINOLOGY & FERTILITY Diagnoses Encounter for fertility testing Procedures OFFICE/OUTPATIENT ESTABLISHED LOW MDM 20 MIN [facility] [address] [address] [place] [address] i Jamel [facility] [address] [place] [address] Referral ID Status Reason Start Date Expiration Date V isits Requested Visits Authorized [id number] Closed Financial Clearance Required - Self Pay [...] section and content) DATE CREATED AUTHOR 05/08/2020 [facility] DATE CREATED AUTHOR AUTHOR'S ORGANIZ ATION 03/31/2021 [facility] DATE CREATED AUTHOR AUTHOR'S ORGANIZ ATION 09/04/2021 [facility] DATE CREATED AUTHOR AUTHOR'S ORGANIZ ATION 04/19/2024 [facility] DATE CREATED AUTHOR AUTHOR'S ORGANIZ ATION 05/05/2024 [facility] DATE CREATED AUTHOR AUTHOR'S ORGANIZ ATION 09/12/2024 [facility] DATE CREATED AUTHOR AUTHOR'S ORGANIZ ATION 10/05/2024 [facility] DATE CREATED AUTHOR AUTHOR'S ORGANIZ ATION 11/09/2024 [facility] DATE CREATED AUTHOR AUTHOR'S ORGANIZ ATION 11/22/2024 [facility] EPIC Care Teams (unrecognized sec tion and content) Team Status: Inactive Member Role Status Dates Robin Appiah MD Primary Care Provider Active Amanda Ford APRN NP-Rudi Attending Provider Act misti Team Status: Inactive Member Role Status Dates Amanda Ford APRN FIRE RANGE TECHNICIAN-C Primary Care Provider Active Jean Jett PA-C Emergency Provider Active Team Status: Inactive Member Role Status Dates Amanda Ford APRN FIRE RANGE TECHNICIAN-C Primary Care Provider Active Jack Easton DO Emergency Provider Active Team Status: Active Member Role Status Dates Amanda Ford APRN FIRE RANGE TECHNICIAN-Rudi Primary Care Provider Active Team Status: Inactive Member Role Status Dates Amanda Ford APRN NP-Rudi Primary Care Provider, Attending Provider Active Team Status: Active Member Role Status Dates Amanda Ford APRN FIRE RANGE TECHNICIAN-C Primary Care Provider Active Jean Jett PA-C Emergency Provider Active Farhad Gallego MD Admit Provider, Attending Provider A ctive Team Status: Inactive Member Role Status Dates Amanda Ford APRN FIRE RANGE TECHNICIAN-C Primary Care Provider Active Jean Jett PA-C Emergency Provider Active Farhad Gallego MD Admit Provider, Attending Provider A ctive Team Status: Inactive Member Role Status Dates Amanda Ford APRN FIRE RANGE TECHNICIAN-C Primary Care Provider Active Julieta Jefferson FIRE RANGE TECHNICIAN-C Attending Provider Active Team Status: Inactive Member Role Status Dates Provider Conversion Attending Provider Active St art: May 17, 2023 End: May 17, 2023 Team Status: Inactive Member Role Status Dates Amanda Ford APRN FIRE RANGE TECHNICIAN-C Primary Care Provider, Attending Provider Active Start: June 08, 2023 End: June 08, 2023 Team Status: Active Member Role Status Dates Amanda Ford APRN FIRE RANGE TECHNICIAN-C Primary Care Provider, Attending Provider Active Start: September 15, 2023 Team Status: Inactive Member Role Status Dates Amanda Ford APRN FIRE RANGE TECHNICIAN-C Primary Care Provider Active Start: October 13, 2023 End: October 13, 2023 Romeo Santana DO Attending Provider Active St art: October 13, 2023 End: October 13, 2023 Team Status: Inactive Member Role Status Dates Amanda Ford APRN FIRE RANGE TECHNICIAN-C Primary Care Provider Active Start: October 26, 2023 End: October 26, 2023 Romeo Santana DO Attending Provider Active St art: October 26, 2023 End: October 26, 2023 Team Status: Inactive Member Role Status Dates Amanda Ford APRN FIRE RANGE TECHNICIAN-C Primary Care Provider Active Start: November 01, 2023 End: November 01, 2023 Romeo Santana DO Attending Provider Active St art: November 01, 2023 End: November 01, 2023 Team Status: Inactive Member Role Status Dates Amanda Ford APRN FIRE RANGE TECHNICIAN-C Primary Care Provider Active Start: November 28, 2023 End: November 28, 2023 Romeo Santana DO Attending Provider Active St art: November 28, 2023 End: November 28, 2023 Team Status: Inactive Member Role Status Dates Amanda Ford APRN FIRE RANGE TECHNICIAN-C Primary Care Provider Active Start: December 01, 2023 End: December 01, 2023 Romeo Santana DO Attending Provider Active St art: December 01, 2023 End: December 01, 2023 Team Status: Inactive Member Role Status Dates Amanda Ford APRN FIRE RANGE TECHNICIAN-C Primary Care Provider Active Start: December 07, 2023 End: December 07, 2023 Romeo Santana DO Attending Provider Active St art: December 07, 2023 End: December 07, 2023 Team Status: Active Member Role Status Dates Amanda Ford APRN FIRE RANGE TECHNICIAN-C Primary Care Provider Active Start: November Romeo Santana DO Attending Provider, Other Provider Active Start: December 07, 2023 Team Status: Inactive Member Role Status Dates Amanda Ford APRN FIRE RANGE TECHNICIAN-C Primary Care Provider Active Start: December 192023 End: December 20, 2023 Romeo Santana DO Attending Provider Active St art: December 20, 2023 End: December 20, 2023 Team Status: Active Member Role Status Dates Amanda Ford APRN FIRE RANGE TECHNICIAN-C Primary Care Provider Active Start: December 182023 Romeo Santana DO Other Provider Active Start: January 10, 2024 Daniel Hampton MD Attending Provider Active Start: January 10, 2024 Team Status: Inactive Member Role Status Dates Amanda Ford APRN FIRE RANGE TECHNICIAN-C Primary Care Provider Active Start: January 17, 2024 End: January 17, 2024 Romeo Santana DO Attending Provider Active St art: January 17, 2024 End: January 17, 2024 Undercover Operator Relationship Specialty Start Date End Date Amanda Ford NP [address] [place] [address] PCP - General Family Medicine 01/17/23 Undercover Operator Relationship Specialty Start Date End Date Amanda Ford NP [address] [place] [address] PCP - General Family Medicine 01/17/23 Team Status: Inactive Member Role Status Dates Amanda Ford APRN FIRE RANGE TECHNICIAN-C Primary Care Provider Active Start: February 262023 End: February 27, 2024 Romeo Santana DO Attending Provider Active St art: February 27, 2024 End: February 27, 2024 Undercover Operator Relationship Specialty Start Date End Date Amanda Ford NP PCP - General Family Medicine 01/17/23 Team Status: Active Member Role Status Dates Amanda Ford APRN FIRE RANGE TECHNICIAN-C Primary Care Provider Active Start: February Les Martinez DO Attending Provider Active Start : February 20, 2024 Team Status: Inactive Member Role Status Dates Amanda Ford APRN FIRE RANGE TECHNICIAN-C Primary Care Provider Active Start: April 23, 2024 End: April 23, 2024 Romeo Santana DO Attending Provider Active St art: April 23, 2024 End: April 23, 2024 Team Status: Inactive Member Role Status Dates Amanda Ford APRN FIRE RANGE TECHNICIAN-C Primary Care Provider, Attending Provider Active Start: April 26, 2024 End: April 26, 2024 Undercover Operator Relationship Specialty Start Date End Date Amanda Ford NP [address] [facility] [place] [address] [place] [address] PCP - General Family Medicine 01/17/23 Undercover Operator Relationship Specialty Start Date End Date Amanda Ford NP [address] [facility] [place] [address] [place] [address] PCP - General Family Medicine 01/17/23 Undercover Operator Relationship Specialty Start Date End Date Amanda Ford NP [address] [place], [place] [id number] PCP - General Family Medicine 01/17/23 Undercover Operator Relationship Specialty Start Date End Date Amanda Ford NP [address] [place], [place] [id number] PCP - General Family Medicine 01/17/23 Team Status: Inactive Member Role Status Dates Amanda Ford APRN FIRE RANGE TECHNICIAN-C Primary Care Provider Active Start: October 18, 2024 End: October 18, 2024 Kassidy Arriaza DO Emergency Provider Active Start: October 18, 2024 End: October 18, 2024 Undercover Operator Relationship Specialty Start Date End Date Amanda Ford NP [address] [place] [address] PCP - General Family Medicine 01/17/23 Undercover Operator Relationship Specialty Start Date End Date No Pcp, [place] [address] PCP - General Family Medicine 05/20/20 Undercover Operator Relationship Specialty Start Date End Date No Pcp, [place] [address] PCP - General Family Medicine 05/20/20 Undercover Operator Relationship Specialty Start Date End Date Amanda Ford NP [address] [place] [address] PCP - General Family Medicine 01/17/23 Undercover Operator Relationship Specialty Start Date End Date Amanda Ford NP [address] [place] [address] PCP - General Family Medicine 01/17/23 Undercover Operator Relationship Specialty Start Date End Date Amanda Ford NP [address] [place] [id number] PCP - General Family Medicine 01/17/23 Team Status: Active Member Role Status Dates Amanda Ford APRN FIRE RANGE TECHNICIAN-C Primary Care Provider Active Start: November 17, 2024 Chris Dickerson DO Attending Provider Active S tart: November 17, 2024 Team Status: Active Member Role Status Dates Amanda Ford APRN FIRE RANGE TECHNICIAN-C Primary Care Provider Active Start: November 20, 2024 Les Juan , DO Attending Provider Active Start : November 20, 2024 Team Status: Active Member Role Status Dates Amanda Ford APRN FIRE RANGE TECHNICIAN-C Primary Care Provider Active Start: November 30, 2024 Chris Dickerson , DO Attending Provider Active S tart: November 30, 2024 Team Status: Inactive Member Role Status Dates Chris Dickerson , DO Attending Provider Active S tart: November 30, 2024 End: November 30, 2024 Goals (unrecognized section and content) Goals may be documented in a n alternate section Source Comments (unrecognize d section and content) In the event this informatio n is protected by the Federal Confidentiality of Alcohol and Drug Abuse Patient Records regulations: The Federal rules restrict any use of the information to criminally investigate or prosecute any alcohol or drug abuse patient.[facility] the event this information is protected by the Federal Confidentiality of Alcohol and Drug Abuse Patient Records regulations: The Federal rules restrict any use of the information to criminally investigate or prosecute any alcohol or drug abuse patient.[facility] the event this information is protected by the Federal Confidentiality of Alcohol and Drug Abuse Patient Records regulations: The Federal rules restrict any use of the information to criminally investigate or prosecute any alcohol or drug abuse patient.[facility] the event this information is protected by the Federal Confidentiality of Alcohol and Drug Abuse Patient Records regulations: The Federal rules restrict any use of the information to criminally investigate or prosecute any alcohol or drug abuse patient.[facility] the event this information is protected by the Federal Confidentiality of Alcohol and Drug Abuse Patient Records regulations: The Federal rules restrict any use of the information to criminally investigate or prosecute any alcohol or drug abuse patient.[facility] the event this information is protected by the Federal Confidentiality of Alcohol and Drug Abuse Patient Records regulations: The Federal rules restrict any use of the information to criminally investigate or prosecute any alcohol or drug abuse patient.[facility] the event this information is protected by the Federal Confidentiality of Alcohol and Drug Abuse Patient Records regulations: The Federal rules restrict any use of the information to criminally investigate or prosecute any alcohol or drug abuse patient.[facility] the event this information is protected by the Federal Confidentiality of Alcohol and Drug Abuse Patient Records regulations: The Federal rules restrict any use of the information to criminally investigate or prosecute any alcohol or drug abuse patient.[facility] the event this information is protected by the Federal Confidentiality of Alcohol and Drug Abuse Patient Records regulations: The Federal rules restrict any use of the information to criminally investigate or prosecute any alcohol or drug abuse patient.[facility] the event this information is protected by the Federal Confidentiality of Alcohol and Drug Abuse Patient Records regulations: The Federal rules restrict any use of the information to criminally investigate or prosecute any alcohol or drug abuse patient.[facility] the event this information is protected by the Federal Confidentiality of Alcohol and Drug Abuse Patient Records regulations: The Federal rules restrict any use of the information to criminally investigate or prosecute any alcohol or drug abuse patient.[facility] the event this information is protected by the Federal Confidentiality of Alcohol and Drug Abuse Patient Records regulations: The Federal rules restrict any use of the information to criminally investigate or prosecute any alcohol or drug abuse patient.[facility] the event this information is protected by the Federal Confidentiality of Alcohol and Drug Abuse Patient Records regulations: The Federal rules restrict any use of the information to criminally investigate or prosecute any alcohol or drug abuse patient.[facility] Hospital[facility] the event this information is protected by the Federal Confidentiality of Alcohol and Drug Abuse Patient Records regulations: The Federal rules restrict any use of the information to criminally investigate or prosecute any alcohol or drug abuse patient.[facility] the event this information is protected by the Federal Confidentiality of Alcohol and Drug Abuse Patient Records regulations: The Federal rules restrict any use of the information to criminally investigate or prosecute any alcohol or drug abuse patient.[facility]In the event this information is protected by the Federal Confidentiality of Alcohol and Drug Abuse Patient Records regulations: The Federal rules restrict any use of the information to criminally investigate or prosecute any alcohol or drug abuse patient.[facility] the event this information is protected by the Federal Confidentiality of Alcohol and Drug Abuse Patient Records regulations: The Federal rules restrict any use of the information to criminally investigate or prosecute any alcohol or drug abuse patient.[facility] the event this information is protected by the Federal Confidentiality of Alcohol and Drug Abuse Patient Records regulations: The Federal rules restrict any use of the information to criminally investigate or prosecute any alcohol or drug abuse patient.[facility]In the event this information is protected by the Federal Confidentiality of Alcohol and Drug Abuse Patient Records regulations: The Federal rules restrict any use of the information to criminally investigate or prosecute any alcohol or drug abuse patient.[facility] the event this information is protected by the Federal Confidentiality of Alcohol and Drug Abuse Patient Records regulations: The Federal rules restrict any use of the information to criminally investigate or prosecute any alcohol or drug abuse patient.[facility]In the event this information is protected by the Federal Confidentiality of Alcohol and Drug Abuse Patient Records regulations: The Federal rules restrict any use of the information to criminally investigate or prosecute any alcohol or drug abuse patient.[facility] the event this information is protected by the Federal Confidentiality of Alcohol and Drug Abuse Patient Records regulations: The Federal rules restrict any use of the information to criminally investigate or prosecute any alcohol or drug abuse patient.[facility] the event this information is protected by the Federal Confidentiality of Alcohol and Drug Abuse Patient Records regulations: The Federal rules restrict any use of the information to criminally investigate or prosecute any alcohol or drug abuse patient.[facility]In the event this information is protected by the Federal Confidentiality of Alcohol and Drug Abuse Patient Records regulations: The Federal rules restrict any use of the information to criminally investigate or prosecute any alcohol or drug abuse patient.[facility]In the event this information is protected by the Federal Confidentiality of Alcohol and Drug Abuse Patient Records regulations: The Federal rules restrict any use of the information to criminally investigate or prosecute any alcohol or drug abuse patient.[facility]In the event this information is protected by the Federal Confidentiality of Alcohol and Drug Abuse Patient Records regulations: The Federal rules restrict any use of the information to criminally investigate or prosecute any alcohol or drug abuse patient.[facility]In the event this information is protected by the Federal Confidentiality of Alcohol and Drug Abuse Patient Records regulations: The Federal rules restrict any use of the information to criminally investigate or prosecute any alcohol or drug abuse patient.[facility] FOR RECORDS PERTAINING TO PATIENTS WHO [...] BE BASED ON THE PRIMARY CLINICAL RECORDS. [employer] [facility]. provides no warranty or guarantee of the accuracy or completeness of information in this document.
[2024-12-01 15:28] VITALS: BP 115/70
[2024-12-01 15:30] VITALS: BP 110/64
--- NOTE | 2024-12-01 15:41 | ED.GENADUL1 ---
HPI HPI - General Adult General Chief complaint: Recheck/Abnormal Lab/Rx Stated complaint: less than 20 weeks preg - bp check Time Seen by Provider: 12/01/24 15:18 History of Present Illness HPI narrative: 29 year old female presents to the ED for a headache, leg swelling. She is concerned about her blood pressure. States she has a BP cuff at home. She has been checking her BP, but it has no been elevated. States she has had a headache for 2-3 weeks. Reports her leg swelling has improved, but is still present. Reports it feels as if her heart is beating hard at times, but her HR has not been elevated. States she is 19 weeks, 4 days . She was evaluated here yesterday for the same. She is . Denies fever, chills, vision changes, dizziness, CP, SOB. Denies abd pain, urinary symptoms. She has been taking Tylenol for her WALTER without improvement. Related Data Home Medications ?Medication ?Instructions ?Recorded ?Confirmed docusate sodium 100 mg capsule 100 mg PO DAILY 11/17/24 12/01/24 lamotrigine 200 mg tablet 200 mg PO DAILY 11/17/24 12/01/24 lansoprazole 30 mg capsule,delayed 30 mg PO DAILY 11/17/24 12/01/24 release levothyroxine 50 mcg tablet 50 mcg PO DAILY 11/17/24 12/01/24 polysaccharide iron complex 180 mg 180 mg PO BID 11/17/24 12/01/24 iron capsule (Pro Fe) quetiapine 25 mg tablet 25 mg PO .qhs 11/17/24 12/01/24 sertraline 25 mg tablet 25 mg PO DAILY 11/17/24 12/01/24 Allergies Allergy/AdvReac Type Severity Reaction Status Date / Time No Known Drug Allergies Allergy Verified 12/01/24 14:26 Opioid HPI Opioid Management Most Recent Opioid Data: Last Pain Scale 5 Today, 14:26 Review of Systems ROS Constitutional Denies: fever or chills Ears, nose, mouth, and throat Denies: throat pain Cardiovascular Reports: edema and swelling of feet/ankles; Denies: chest pain or lightheadedness Respiratory Denies: shortness of breath Gastrointestinal Denies: abdominal pain, nausea or vomiting Genitourinary Denies: painful urination, urinary frequency or urinary urgency Musculoskeletal Denies: back pain or neck pain Neurological Reports: headache; Denies: numbness in extremities, weakness in extremities or dizziness PFSH PFSH Social History Little interest or pleasure in doing things: not at all Feeling down, depressed, or hopeless: not at all Exam Constitutional Vital Signs, click to edit/add: Last Vital Signs Temp 97.6 F 12/01/24 16:59 Pulse 75 12/01/24 14:26 Resp 18 12/01/24 14:26 BP 118/62 12/01/24 16:30 Pulse Ox 98 12/01/24 14:26 O2 Del Method Room Air 12/01/24 14:26 Common normals: no apparent distress and oriented x3 General appearance: cooperative HENMT Common normals: moist oral mucous membranes Eye Common normals: EOMs intact bilaterally, conjunctivae normal and no scleral icterus Neck & C-Spine Common normals: supple Respiratory Common normals: normal respiratory effort, no use of accessory muscles and clear to auscultation bilaterally Effort & inspection: able to speak in complete sentences and symmetric chest movement Cardio Common normals: regular rate and regular rhythm Extremity Other: No pitting edema noted. Minimal swelling to her feet noted at this time. Pedal pulses palpable. Neuro Common normals: oriented x3 and moves all extremities Sensorium/orientation: awake and alert Speech: speech normal Course Vital Signs Vital signs: Vital Signs Pulse Rate 75 12/01/24 14:26 Respiratory Rate 18 12/01/24 14:26 Blood Pressure 132/79 12/01/24 14:26 Pulse Oximetry 98 12/01/24 14:26 Oxygen Delivery Method Room Air 12/01/24 14:26 Temperature 97.6 F 12/01/24 16:59 Pulse Rate 75 12/01/24 14:26 Respiratory Rate 18 12/01/24 14:26 Blood Pressure 118/62 12/01/24 16:30 Pulse Oximetry 98 12/01/24 14:26 Oxygen Delivery Method Room Air 12/01/24 14:26 Medical Decision Making MDM Narrative Medical decision making narrative: CBC, CMP, and urinalysis were unremarkable. BP was unremarkable here in the ED. She was encouraged to elevate her legs. Follow up with [facility] for a recheck, further evaluation and treatment. Medical Records Medical records reviewed: Yes I reviewed the patient's medical records Lab Data Lab results reviewed: Yes I reviewed the patient's lab results Labs: Lab Results 12/01/24 12/01/24 Range/Units 16:17 16:46 WBC 10.0 (4.0-11.0) 10^3/uL RBC 4.36 (4.20-5.40) 10^6/uL Hgb 13.0 (12.0-16.0) g/dL Hct 38.0 (36.0-48.0) % MCV 87.2 (81.0-99.0) fL MCH 29.8 (26.7-34.0) pg MCHC 34.2 (29.9-35.2) g/dL RDW 14.0 (11.0-15.0) % Plt Count 177 (150-450) 10^3/uL MPV 8.3 L (9.5-13.5) fL Neut % (Auto) 68.3 (43.0-75.0) % Lymph % (Auto) 22.1 (20.5-60.0) % Saline % (Auto) 6.5 (1.7-12.0) % Eos % (Auto) 1.8 (0.9-7.0) % Baso % (Auto) 0.3 (0.2-2.0) % Neut # (Auto) 6.9 H (1.4-6.5) 10^3/uL Lymph # (Auto) 2.2 (1.2-3.8) 10^3/uL Saline # (Auto) 0.7 (0.3-0.8) 10^3/uL Eos # (Auto) 0.2 (0.0-0.7) 10^3/uL Baso # (Auto) 0.0 (0.0-0.1) 10^3/uL Abs Immat Gran (auto) 0.10 H (0.00-0.03) 10^3/uL Imm/Tot Granulo (auto) 1.0 H (0.0-0.5) % Sodium 139 (136-145) mmol/L Potassium 3.9 (3.5-5.1) mmol/L Chloride 106 (98-107) mmol/L Carbon Dioxide 25.7 (21.0-32.0) mmol/L Anion Gap 11.2 BUN 3.0 L (7.0-18.0) mg/dL Creatinine 0.37 L (0.55-1.02) mg/dL Est GFR ( Amer) >60 (>=60 mL/min/1.73m^2) Est GFR (Non-Af Amer) >60 (>=60 mL/min/1.73m^2) BUN/Creatinine Ratio 8.1 Glucose 61 L (74-106) mg/dL Calcium 8.6 (8.5-10.1) mg/dL Total Bilirubin 0.4 (0.2-1.0) mg/dL AST 14 L (15-37) U/L ALT 20 (14-59) U/L Alkaline Phosphatase 45 L (46-116) U/L Total Protein 6.7 (6.4-8.2) g/dL Albumin 3.1 L (3.4-5.0) g/dL Globulin 3.6 g/dL Albumin/Globulin Ratio 0.9 Urine Color Lt. yellow (YELLOW) Urine Clarity Clear (CLEAR) Urine pH 6.0 (5.0-9.0) Ur Specific [place] 1.025 (1.005-1.025) Urine Protein Negative (NEG/TRACE) mg/dL Urine Glucose (UA) Negative (NEGATIVE) mg/dL Urine Ketones Negative (NEGATIVE) mg/dL Urine Occult Blood Negative (NEGATIVE) Urine Nitrite Negative (NEGATIVE) Urine Bilirubin Negative (NEGATIVE) Urine Urobilinogen 1.0 (0.2-1.0) EU/dL Ur Leukocyte Esterase Negative (NEGATIVE) Discharge Plan Discharge Chief Complaint: Recheck/Abnormal Lab/Rx Clinical Impression: Edema, peripheral Patient Disposition: Home, Self-Care Time of Disposition Decision: 17:00 Condition: Good Mode of Transportation: Private Vehicle Prescriptions / Home Meds: No Action docusate sodium 100 mg capsule 100 mg PO DAILY lamotrigine 200 mg tablet 200 mg PO DAILY lansoprazole 30 mg capsule,delayed release(DR/EC) 30 mg PO DAILY levothyroxine 50 mcg tablet 50 mcg PO DAILY quetiapine 25 mg tablet 25 mg PO .qhs sertraline 25 mg tablet 25 mg PO DAILY Pro Fe 180 mg iron capsule 180 mg PO BID Print Language: Vietnamese Instructions: Leg Edema (ED) Additional Instructions: Elevate your legs. Follow-up with Dr. Martinez. Return to the ED for worsening symptoms. Referrals: NAVIN HEWITT [Primary Care Provider, Unknown] - 1 week
[2024-12-01 16:22] LABS: Hematocrit 38.0 % (36.0-48.0); Hemoglobin 13.0 g/dL (12.0-16.0); Immature Granulocytes Abs Auto 0.10 10^3/uL (0.00-0.03); Immature Granulocytes Pct Auto 1.0 % (0.0-0.5); Lymphocytes Absolute Auto 2.2 10^3/uL (1.2-3.8); Mean Corpuscular HGB Conc 34.2 g/dL (29.9-35.2); Mean Corpuscular Hemoglobin 29.8 pg (26.7-34.0); Mean Corpuscular Volume 87.2 fL (81.0-99.0); Platelet Count 177 10^3/uL (150-450); Red Blood Count 4.36 10^6/uL (4.20-5.40); White Blood Count 10.0 10^3/uL (4.0-11.0)
[2024-12-01 16:30] VITALS: BP 118/62
[2024-12-01 16:36] LABS: Alanine Aminotransferase 20 U/L (14-59); Albumin Globulin Ratio 0.9; Albumin Level 3.1 g/dL (3.4-5.0); Alkaline Phosphatase 45 U/L (46-116); Anion Gap 11.2; Aspartate Amino Transferase 14 U/L (15-37); Blood Urea Nitrogen 3.0 mg/dL (7.0-18.0); Calcium 8.6 mg/dL (8.5-10.1); Carbon Dioxide 25.7 mmol/L (21.0-32.0); Chloride 106 mmol/L (98-107); Estimated GFR (African America >60 (>=60 mL/min/1.73m^2); Estimated GFR (Non-African Ame >60 (>=60 mL/min/1.73m^2); Globulin 3.6 g/dL; Glucose 61 mg/dL (74-106); Potassium 3.9 mmol/L (3.5-5.1); Sodium 139 mmol/L (136-145); Total Protein 6.7 g/dL (6.4-8.2)
[2024-12-01 16:54] LABS: Glucose Urine UA NEGATIVE (NEGATIVE)
[2024-12-01 16:59] VITALS: TEMP 36.4
== END 2024-12-01 17:16 | disposition home or self-care (01) ==
PROVIDERS: Nurse Practitioner Family; Emergency Provider Emergency Medicine; PCP Nurse Practitioner Family
DX: O26.892 Other specified pregnancy related conditions, second trimester (principal); Z3A.19 19 weeks gestation of pregnancy; R51.9 Headache, unspecified; R60.0 Localized edema
CPT/HCPCS: 36415; 80053; 81003; 85025; 99284

== ENCOUNTER 2024-12-15 23:16 | Observation (INO) | payer MEDICAID, SELFPAY ==
--- OUTSIDE RECORDS SUMMARY | 2023-08-31 06:45 | XMS_ITS | Continuity of Care Document ---
Author Organization [facility] Address [address] [place] [address] Phone Care Team Providers Care Mason Helper Name Role Phone Jo Melvin DDS Unavailable [...] Visit Dental Bitewig-single Film Intraoral-periapical 1st Film Qrijcymfb-ofgjccvkic-fgjk Additional Jul Oral Hygiene Instruction Limited Oral Eval Oral/Facial Photographic Images 024 Prophylaxis Adult Nutrit Couns For Control Of [place] Dis Jul Oral Hygiene Instruction Oral Hygiene [...] Diagnoses Date Provider Providers Copied on Encounter [facility], [address] [place] [address], [id number], tel:[phone] Dental Clinic de (chief complaint) Encounter for screening for dental disorders [facility]. . tel:[phone] [facility], [address] [place] [address], [id number], [place] tel:[phone] Dental Clinic dl (chief complaint) Encounter for screening for dental disorders [facility]. [address] [place] [address], [id number], [place]. tel:[phone] [facility], [address] [place] [address], [id number], tel:[phone] Dental Clinic [place] (chief complaint) Body mass index [BMI] 28.0-28.9, adultEncounter for screening for dental disorders Aaron S Butch. [address] [place] [address], [id number], [place]. tel:[phone] [facility], [address] [place] [address], [id number], tel:[phone] Dental Clinic fill (chief complaint) Encounter for screening for dental disorders [facility]gozi S Oj. . tel:[phone] [facility], [address] [place] [address], [id number], [place] tel:[phone] Dental Clinic fill (chief complaint) Encounter for screening for dental disorders Ngozi Osorio. . tel: [phone] [facility], [address] [place] [address], [id number], [place] tel:[phone] Dental Clinic fill (chief complaint) Encounter for screening for dental disorders Ngozi Osorio. . tel: [phone] [facility], [address] [place] [address], [id number], [place] tel:[phone] Dental Clinic DN (chief complaint) Encounter for screening for dental disorders Ngozi Osorio. . tel: [phone] Family History Family Member Type Diagnosis Age At Onset No Information Payers Payer name Insurance type Covered democrat ID Authoriza tion(s) No Information Social History [...] due Goal RLP. Due on due Goal PAP. Due on due Goal Tdap. Due on due Goal Influenza vaccine. Due on Se due Goal PRAPARE ASSESSMENT. Due on S due Goal Tdap Vaccine. Due on 2022 due Goal PAP. Due on due Goal Tdap Vaccine. Due on 2022 due Goal PRAPARE ASSESSMENT. Due on A due Goal RLP. Due on due Goal Depression screening. Due on due Goal Influenza vaccine. Due on Au due Goal Tdap. Due on due Goal Hep A. Due on du e History Of Present Illness Encounter Date Complaint [...]
--- OUTSIDE RECORDS SUMMARY | 2024-04-25 09:30 | XMS_ITS ---
Author Organization [facility] Address [address] [place] [address] Care Team Providers Care Tone Regulator Name Role Phone Jennifer Hahn Primary Care Provider [phone] Julieta Sher [phone] REASON FOR VISIT 3 month f/u Encounters Encounter Location Date Provider Diagnosis [facility] [address] [place] [address] 04/25/2024 Julieta Jefferson Plan Of Treatment No Information Progress Notes * GUZMAN DEL CIDDOB: 5 (29 yo F)Acc No.[id number]:04/25/2024 Behavioral Health Patient: GUZMAN AMES Appointment Provider: Adin Jefferson :1995 A ge:29 Y S ex:Female Date:04/25/2024 Address:[address], [id number] Pcp:Jennifer Hahn Subjective: * Chief Complaints: * 1 . 3 month f/u. * Medical History: Objective: * Vitals: Assessment: Plan: * Treatment: * Images: * Electronic signature of NELIDA Newell FNP on 12/15/2024 at 11:20 PM EDT Sign off status: Pending * Appointment Provider: Adin Jefferson Date: 0 04/25/2024 Generated for Printi ng/Faxing/eTransmitting on: 0 12/15/2024 11:20 PM EDT
--- OUTSIDE RECORDS SUMMARY | 2024-07-25 06:30 | XMS_ITS ---
Author Organization [facility] Address [address] [place] [address] Care Team Providers Care Focused Factory Manager Name Role Phone Jennifer Hahn Primary Care Provider [phone] Julieta Sher [phone] REASON FOR VISIT 3 month f/u Encounters Encounter Location Date Provider Diagnosis [facility] [address] [place] [address] 07/25/2024 Julieta Jefferson Plan Of Treatment No Information Progress Notes * GUZMAN DEL CIDDOB: 5 (29 yo F)Acc No.[id number]:07/25/2024 Behavioral Health Patient: GUZMAN AMES Appointment Provider: Adin Jefferson :1995 A ge:29 Y S ex:Female Date:07/25/2024 Address:[address], [id number] Pcp:Jennifer Hahn Subjective: * Chief Complaints: * 1 . 3 month f/u. * Medical History: Objective: * Vitals: Assessment: Plan: * Treatment: * Images: * Electronic signature of NELIDA Newell FNP on 12/15/2024 at 11:19 PM EDT Sign off status: Pending * Appointment Provider: Adin Jefferson Date: 0 07/25/2024 Generated for Printi ng/Faxing/eTransmitting on: 0 12/15/2024 11:19 PM EDT
--- OUTSIDE RECORDS SUMMARY | 2024-12-04 08:30 | XMS_ITS | Encounter Summary ---
Author Organization [facility] Address [address] [place] [address] Care Team Providers Care Reference And Instruction Librarian Name Role Phone Amanda Ford RETRIMMER Primary Care Provider Encounter Details Date Type Department Care Team (Latest Contact Info) Description 12/04/2024 8:30 AM EDT Ancillary Procedure [facility] [address] [place] [phone] Screening, , for anatomic survey ([facility]) Social History Tobacco Use Types Packs/Day Years [...] Care Team (Late st Contact Info) Description 12/19/2024 10:00 AM EDT Routine [facility] [address] [place] [phone] Jojo Ames PA [address] [place] [address] 02/20/2025 1:00 PM EST Office Visit [facility] [address] [place] [phone] Les Martinez, DO [address] [place] [address] 08/21/2025 9:30 AM EDT Office Visit [facility] [address] [place] [phone] Darleen Sinclair MD [address] [place] [address] documented as of this encounter Goals Goal Patient Goal Type Associated Problems Recent Progress Patient-Stated? Author Reminders Care Plan OB Reminders No Open Scheduling, Background documented as of this encounter Procedures Procedure Name Priority Date/Time Associated Diagnosis Comments US OB 14+ WEEKS ANATOMY SCAN Routine 12/04/2024 9:26 AM EDT Screening, , for anatomic survey ([facility]) documented in this encounter Results * US OB 14+ weeks anatomy scan (12/04/2024 9:26 AM EDT) Anatomical Region Laterality Modality Body Ultrasound 12/06/2024 8:06 AM EDT Narrative 12/06/2024 8:06 AM EDT EXAM: US OB 14+ WEEKS ANATOMY SCAN HISTORY: anatomy, IVF. COMPARISON: Ob ultrasound 09/20/2024. TECHNIQUE: Two-dimensional transabdominal grayscale ultrasound imaging of the pelvis was performed. Limited exam due to patient body habitus. FINDINGS: Gestation: Single Presentation: Cephalic Cardiac Activity: 149 beats per minute Placental Location: Posterior with no sonographic abnormalities identified. Distance from Placental Tip to Cervix: 3.5 cm Cervical Length: 4.6 cm Amniotic Fluid: Appears adequate MEASUREMENTS: BPD: 4.8 cm EGA: 20 weeks 3 days HC: 17.9 cm EGA: 20 weeks 2 days AC: 15.0 cm EGA: 20 weeks 2 days FL: 3.3 cm EGA: 20 weeks 1 days HC/AC Ratio: 1.19 The gestational age by today's ultrasound is 20 weeks 2 days (+/- 10 days gestation). Estimated Weight: 340 grams, +/- 51 grams ( 0 lb 12 oz). Weight Percentile for gestational age: 58 % ANATOMY C-Spine: Unremarkable T-Spine: Unremarkable L-Spine: Unremarkable Sacrum: Unremarkable Four Chamber Heart: Unremarkable LVOT: Unremarkable RVOT: Unremarkable Stomach: Unremarkable Kidneys: Unremarkable Bladder: Unremarkable Diaphragm: Unremarkable Cord insertion: Unremarkable Cord vessels: Three Lateral Ventricles: Unremarkable Cerebellum: Unremarkable Cisterna Magna: Unremarkable Posterior Fossa: Unremarkable Right Femur: Unremarkable Left Femur: Unremarkable Right Tib/Fib: Unremarkable Left Tib/Fib: Unremarkable Right Rad/Ulnar: Unremarkable Left Rad/Ulnar: Unremarkable Right Humerus: Unremarkable Left Humerus: Unremarkable Nose/Lips: Not visualized Profile: Limited Orbits: Unremarkable IMPRESSION: 1. Single, live intrauterine gestation 20 weeks, 0 days by LMP. Today's ultrasound measurements correlate with a gestational age of 20 weeks 2 days. Estimated weight is 340 grams, +/- 51 grams ( 0 lb 12 oz) which correlates to 58 %. DARWIN by today's ultrasound is 04/21/2025. 2. Unremarkable anatomy with limited visualization of the profile and nose/lips. A short-term follow-up ultrasound is recommended. Interpreted by: Electronically signed by EDEL GARCIA II, MD, PHD at 06-Dec-2024 08:04:50 AM [facility] Procedure Note Edel Garcia MD - 12/06/2024 EXAM: US OB 14+ WEEKS ANATOMY SCAN HISTORY: anatomy, IVF. COMPARISON: Ob ultrasound 09/20/2024. TECHNIQUE: Two-dimensional transabdominal grayscale ultrasound imaging ofthe pelvis was performed. Limited exam due to patient body habitus. FINDINGS: Gestation: Single Presentation: Cephalic Cardiac Activity: 149 beats per minute Placental Location: Posterior with no sonographic abnormalitiesidentified. Distance from Placental Tip to Cervix: 3.5 cm Cervical Length: 4.6 cm Amniotic Fluid: Appears adequate MEASUREMENTS: BPD: 4.8 cm EGA: 20 weeks 3 days HC: 17.9 cm EGA: 20 weeks 2 days AC: 15.0 cm EGA: 20 weeks 2 days FL: 3.3 cm EGA: 20 weeks 1 days HC/AC Ratio: 1.19 The gestational age by today's ultrasound is 20 weeks 2 days (+/- 10 daysgestation). Estimated Weight: 340 grams, +/- 51 grams ( 0 lb 12 oz). Weight Percentile for gestational age: 58 % ANATOMY C-Spine: Unremarkable T-Spine: Unremarkable L-Spine: Unremarkable Sacrum: Unremarkable Four Chamber Heart: Unremarkable LVOT: Unremarkable RVOT: Unremarkable Stomach: Unremarkable Kidneys: Unremarkable Bladder: Unremarkable Diaphragm: Unremarkable Cord insertion: Unremarkable Cord vessels: Three Lateral Ventricles: Unremarkable Cerebellum: Unremarkable Cisterna Magna: Unremarkable Posterior Fossa: Unremarkable Right Femur: Unremarkable Left Femur: Unremarkable Right Tib/Fib: Unremarkable Left Tib/Fib: Unremarkable Right Rad/Ulnar: Unremarkable Left Rad/Ulnar: Unremarkable Right Humerus: Unremarkable Left Humerus: Unremarkable Nose/Lips: Not visualized Profile: Limited Orbits: Unremarkable IMPRESSION: 1. Single, live intrauterine gestation 20 weeks, 0 days by LMP. Today'sultrasound measurements correlate with a gestational age of 20 weeks 2days. Estimated weight is 340 grams, +/- 51 grams ( 0 lb 12 oz)which correlates to 58 %. DARWIN by today's ultrasound is 04/21/2025. 2. Unremarkable anatomy with limited visualization of the fetalprofile and nose/lips. A short-term follow-up ultrasound isrecommended. Interpreted by: Electronically signed by EDEL GARCIA II, MD, PHD 08:04:50 AM [facility] us Les Martinez DO [facility] [place] US PROCEDURES Final Resul t documented in this encounter Visit Diagnoses Diagnosis Screening, , for anatomic survey ([facility]) Encounter for anatomic survey documented in this encounter Additional Health Concerns Active Problems Noted Date Diagnosed Date OB Reminders 10/22/2024 documented as of this encounter Care Teams Reference And Instruction Librarian Relationship Specialty Start Date End Date Amanda Ford NP [facility] [facility] [address] [place] [id number] PCP - General Family Medicine 10/2/23 documented as of this encounter
--- OUTSIDE RECORDS SUMMARY | 2024-12-05 12:36 | XMS_ITS | Encounter Summary ---
[id number] [address] [place] [address] Care Team Providers Care Cap Blocker Name Role Phone No Pcp, No Pcp Primary Care Provider Unavailabl e Reason for Visit * Diagnostic Imaging (Routine) - Pending Review Specialty Diagnoses / Procedures Referred By Contac t Referred To Contact Maternal and Medicine Diagnoses Screening, , for anatomic survey Procedures US MFM with or without consult US MFM with or without consult Enrike Garcia MD [address] [address] Phone: tel: fax: Maternal- Medicine at [facility] [address] [place] [address] Phone: tel: fax: Referral ID Status Reason Start Date Expiration Date V isits Requested Visits Authorized [id number] Pending Review 10/26/2024 10/26/2025 1 1 Encounter Details Date Type Department Care Team (Latest Contact Info) Description 12/05/2024 12:36 PM EDT - 12/05/2024 11:59 PM EDT Hospital Encounter [facility] - MFM US Imaging [address] [place] [id number] Screening, , for anatomic survey Discharge Disposition: Home Social History Tobacco Use Types Packs/Day Years Used Date Smoking Tobacco: Every Day Cigarettes 0.5 3 Smokeless Tobacco: Never Alcohol Use Standard Drinks/Week Comments Not Currently 0 (1 standard drink = 0.6 oz pur e alcohol) Childcare Answer Date Recorded Childcare Unknown 05/20/2020 Employment Answer Date Recorded Employment Unknown 05/20/2020 Hunger Screening Answer Date Recorded Within the past 12 months we worried whether our food would run out before we got money to buy more. Never True 12/05/2024 Within the past 12 months th e food we bought just didn't last and we didn't have money to get more. Never True 12/05/2024 Purpose - Life Answer Date Recorded Purpose and direction in life Unknown Estimated Date of Delivery Comme nts Yes 04/23/2025 Based on Other B asis, IUI conception date 07/31/2024 Sex and Gender Information Value Date Recorded Sex Assigned at Not on file Legal Sex Female 12:10 PM EDT Gender Identity Not on file Sexual Orientation Not on file documented as of this encounter Medications at Time of Discharge docusate sodium (COLACE) 100 mg capsule Take 1 capsule (100 mg total) by mouth in the morning. ferrous sulfate 325 (65 FE) MG tablet Take 1 tablet (325 mg total) by mouth in the morning and 1 tablet (325 mg total) in the evening. Take with meals. lamoTRIgine (LaMICtal) 200 mg tablet Take 1 tablet (200 mg total) by mouth in the morning. lansoprazole (PREVACID) 30 mg capsule Take 1 capsule (30 mg total) by mouth in the morning. levothyroxine (SYNTHROID, LEVOTHROID) 50 MCG tablet Take 1 tablet (50 mcg total) by mouth in the morning. magnesium oxide (MAGOX) 400 mg tabletIndications : headache in second trimester Take 1 tablet (400 mg total) by mouth in the morning and 1 tablet (400 mg total) before bedtime. 120 tablet 1 12/05/2024 [id number] acid ( 19) 29 mg iron- 1 mg tablet,chewable Chew 1 tablet and swallow in the morning. QUEtiapine (SEROquel) 25 mg tablet Take 1 tablet (25 mg total) by mouth nightly. sertraline (ZOLOFT) 25 mg tablet Take 1 tablet (25 mg total) by mouth in the morning. documented as of this encounter Plan of Treatment Upcoming Encounters Date Type Department Care Team (Late st Contact Info) Description 01/03/2025 2:15 PM EDT Appointment Maternal Medicine [place] [address] [facility] [address] [place] [address] documented as of this encounter Procedures Procedure Name Priority Date/Time Associated Diagnosis Comments US MF COMPREHENSIVE ANATOMIC SURVEY Routine 12/05/2024 2:42 PM EDT Screening, , for anatomic survey documented in this encounter Results * US MFM COMPREHENSIVE ANATOMIC SURVEY (12/05/2024 2:42 PM EDT) Anatomical Region Laterality Modality OB-HEEL ROOM SUPERVISOR Ultrasound 12/05/2024 1:21 PM EDT Narrative 12/05/2024 4:11 PM EDT NAME: MARIA EUGENIA HINDS : 1995 SEX: F Accession Number: [id number] ORDERING PHYSICIAN: ENRIKE GARCIA REFERRING PHYSICIAN: BASIM BIRMINGHAM Coding ----- --------- Procedures [id number]: Ultrasound, uterus, real time with image documentation, and maternal evaluation plus detailed anatomic examination, transabdominal approach;single or first gestation [id number]: Transvaginal Ultrasound (OB) Indication ----- --------- Screening for Anatomic Survey, Screening for cervical length, resulting from assisted reproductive technology- IUI, History of Gastric sleeve, Obesity in . History ----- --------- OB History 1. Para 0 [id number] Current ----- --------- Cell free DNA low risk analysis Maternal Assessment ----- --------- Physical Exam Height 180 cm, 5 ft 11 in. Weight 117 kg, 257 lb. Initial weight 102 kg, 224 lb. BMI 35.84 kg/m . Initial BMI 31.24 kg/m . Weight gain 15 kg, 33 lb Method ----- --------- Transabdominal and transvaginal ultrasound examination. View: Suboptimal view: limited by position and maternal body habitus. ----- --------- [place] . Number of fetuses: 1 Dating ----- --------- LMP on: 07/19/2024 GA by LMP 19 w + 6 d DARWIN by LMP: 04/25/2025 Conception on: 07/31/2024 GA by conception 20 w + 1 d DARWIN by conception: 04/23/2025 Previous Ultrasound on: 08/28/2024 Type of prior assessment: GA GA at prior assessment date 5 w + 6 d GA by previous U/S 20 w + 0 d DARWIN by previous Ultrasound: 04/24/2025 Ultrasound examination on: 12/05/2024 GA by U/S based upon: AC, BPD, Femur, HC GA by U/S 20 w + 5 d DARWIN by U/S: 04/19/2025 Assigned: based on the conception date, selected on 12/05/2024 Assigned GA (weeks days) 20 w + 1 d Assigned DARWIN: 04/23/2025 General Evaluation ----- --------- Cardiac activity Present. FHR 146 bpm. Presentation: breech Placenta: Placental site: posterior, away from cervical os Umbilical cord: Cord vessels: 3 vessel cord. Insertion site: normal insertion Amniotic fluid: Amount of AF: normal amount. MVP 5.2 cm Biometry ----- --------- Standard BPD 47.4 mm 20w 2d 58% Hadlock OFD 62.6 mm 21w 3d 88% Gayle HC 177.0 mm 20w 1d 44% Hadlock Cerebellum tr 20.1 mm 19w 2d 45% Hill Nuchal fold 4.0 mm AC 163.5 mm 21w 3d 83% Hadlock Femur 34.7 mm 21w 0d 70% Hadlock Humerus 32.3 mm 20w 6d 78% Gayle HC / AC 1.08 7% Hadlock EFW 396 g 89% Hadlock EFW (lb) 0 lb EFW (oz) 14 oz EFW by: Hadlock ([id number]) Extended Tibia 27.0 mm 19w 5d 43% Gayle Gleason Gear Generator 8.2 mm CM 4.2 mm 24% Nicolaides Nasal bone 5.4 mm 6% [place] Head / Face / Neck Cephalic index 0.76 19% Nicolaides Nasal bone: present Extremities / Bony Struc FL / BPD 0.73 77% Hadlock FL / HC 0.20 90% Hadlock FL / AC 0.21 32% Hadlock Other Structures FHR 146 bpm Anatomy ----- --------- The following structures appear normal: Head/Neck: Cranium. Lateral ventricles. Choroid plexus. Midline falx. Cavum septi pellucidi. Cerebellum. Cisterna magna. Parenchyma. Vermis. Neck. Nuchal fold. Face: Nasal bone. Maxilla. Mandible. Orbits. Heart/Thorax: Situs. Cardiac rhythm. Right lung. Left lung. Abdomen: Abdom. wall. Cord insertion. Stomach. Kidneys. Bladder. Small bowel. Large bowel. Right renal artery. Left renal artery. Spine: Cervical spine. Thoracic spine. Lumbar spine. Sacral spine. Extremities/Skeleton: Right upper arm. Right forearm. Right hand. Left upper arm. Left forearm. Right upper leg. Right lower leg. Left upper leg. The following structures could not be adequately visualized: Face Lips. Profile. Nose. Heart / Thorax 4-chamber view. Aortic arch view. Interventricular septum. Cardiac position. Cardiac axis. Cardiac size. Diaphragm. Extremities / Left hand. Left lower leg. Skeleton The following structures could not be examined: Heart / Thorax RVOT view. LVOT view. 3-vessel view. 9-gddzyg-zyyvuvy view. Bicaval view. Ductal arch view. Great vessels. Abdomen Genitals. Extremities / Right foot. Left foot. Skeleton Maternal Structures ----- --------- Uterus Visualized Cervix Visualized Approach - Transvaginal: Cervical length 3.21 cm Right Ovary Not visualized Left Ovary Not visualized Cul de Sac Visualized. No free fluid visualized Impression ----- --------- Single viable intrauterine consistent with 20w 1d with an DARWIN of 04/23/2025. Transvaginal cervical length measures 3.21 cm. Amniotic fluid MVP measures 5.2 cm. Recommendations ----- --------- Please see MFM documentation from today. The patient is scheduled in four to six week(s) to complete anatomic survey. Subsequent follow up or other follow up as clinically determined by primary OB provider unless otherwise specified by MFM. Results forwarded to ordering provider so they can follow up with the patient as necessary. Procedure Note Enrike Garcia MD - 12/05/2024 NAME: MARIA EUGENIA HINDS : 1995 SEX: F Accession Number: [id number] ORDERING PHYSICIAN: ENRIKE GARCIA REFERRING PHYSICIAN: BASIM BIRMINGHAM Coding ----- --------- Procedures [id number]: Ultrasound, uterus, real time with imagedocumentation, and maternal evaluation plus detailed anatomic examination, transabdominalapproach;single or first gestation [id number]: Transvaginal Ultrasound (OB) Indication ----- --------- Screening for Anatomic Survey, Screening for cervical length, Pregnancyresulting from assisted reproductive technology- IUI, History of Gastric sleeve, Obesity in . History ----- --------- OB History 1. Para 0 [id number] Current ----- --------- Cell free DNA low risk analysis Maternal Assessment ----- --------- Physical Exam Height 180 cm, 5 ft 11 in. Weight 117 kg, 257 lb. Initialweight 102 kg, 224 lb. BMI 35.84 kg/m . Initial BMI 31.24 kg/m . Weight gain 15 kg, 33 lb Method ----- --------- Transabdominal and transvaginal ultrasound examination. View: Suboptimalview: limited by position and maternal body habitus. ----- --------- [place] . Number of fetuses: 1 Dating ----- --------- LMP on: 07/19/2024 GA by LMP 19 w + 6 d DARWIN by LMP: 04/25/2025 Conception on: 07/31/2024 GA by conception 20 w + 1 d DARWIN by conception: 04/23/2025 Previous Ultrasound on: 08/28/2024 Type of prior assessment: GA GA at prior assessment date 5 w + 6 d GA by previous U/S 20 w + 0 d DARWIN by previous Ultrasound: 04/24/2025 Ultrasound examination on: 12/05/2024 GA by U/S based upon: AC, BPD, Femur, HC GA by U/S 20 w + 5 d DARWIN by U/S: 04/19/2025 Assigned: based on the conception date, selected on 12/05/2024 Assigned GA (weeks days) 20 w + 1 d Assigned DARWIN: 04/23/2025 General Evaluation ----- --------- Cardiac activity Present. FHR 146 bpm. Presentation: breech Placenta: Placental site: posterior, away from cervical os Umbilical cord: Cord vessels: 3 vessel cord. Insertion site: normalinsertion Amniotic fluid: Amount of AF: normal amount. MVP 5.2 cm Biometry ----- --------- Standard BPD 47.4 mm 20w 2d 58% Hadlock OFD 62.6 mm 21w 3d 88% Gayle HC 177.0 mm 20w 1d 44% Hadlock Cerebellum tr 20.1 mm 19w 2d 45% Hill Nuchal fold 4.0 mm AC 163.5 mm 21w 3d 83% Hadlock Femur 34.7 mm 21w 0d 70% Hadlock Humerus 32.3 mm 20w 6d 78% Gayle HC / AC 1.08 7% Hadlock EFW 396 g 89% Hadlock EFW (lb) 0 lb EFW (oz) 14 oz EFW by: Hadlock ([id number]) Extended Tibia 27.0 mm 19w 5d 43% Gayle Gleason Gear Generator 8.2 mm CM 4.2 mm 24% Nicolaides Nasal bone 5.4 mm 6% [place] Head / Face / Neck Cephalic index 0.76 19% Nicolaides Nasal bone: present Extremities / Bony Struc FL / BPD 0.73 77% Hadlock FL / HC 0.20 90% Hadlock FL / AC 0.21 32% Hadlock Other Structures FHR 146 bpm Anatomy ----- --------- The following structures appear normal: Head/Neck: Cranium. Lateral ventricles. Choroid plexus. Midline falx.Cavum septi pellucidi. Cerebellum. Cisterna magna. Parenchyma. Vermis. Neck. Nuchal fold. Face: Nasal bone. Maxilla. Mandible. Orbits. Heart/Thorax: Situs. Cardiac rhythm. Right lung. Left lung. Abdomen: Abdom. wall. Cord insertion. Stomach. Kidneys. Bladder. Smallbowel. Large bowel. Right renal artery. Left renal artery. Spine: Cervical spine. Thoracic spine. Lumbar spine. Sacral spine. Extremities/Skeleton: Right upper arm. Right forearm. Right hand. Leftupper arm. Left forearm. Right upper leg. Right lower leg. Left upper leg. The following structures could not be adequately visualized: Face Lips. Profile. Nose. Heart / Thorax 4-chamber view. Aortic arch view. Interventricular septum.Cardiac position. Cardiac axis. Cardiac size. Diaphragm. Extremities / Left hand. Left lower leg. Skeleton The following structures could not be examined: Heart / Thorax RVOT view. LVOT view. 3-vessel view. 8-kthrns-ndnzgrv view.Bicaval view. Ductal arch view. Great vessels. Abdomen Genitals. Extremities / Right foot. Left foot. Skeleton Maternal Structures ----- --------- Uterus Visualized Cervix Visualized Approach - Transvaginal: Cervical length 3.21 cm Right Ovary Not visualized Left Ovary Not visualized Cul de Sac Visualized. No free fluid visualized Impression ----- --------- Single viable intrauterine consistent with 20w 1d with an DARWIN of04/23/2025. Transvaginal cervical length measures 3.21 cm. Amniotic fluid MVP measures 5.2 cm. Recommendations ----- --------- Please see [facility] documentation from today. The patient is scheduled in four to six week(s) to complete anatomicsurvey. Subsequent follow up or other follow up as clinically determined byprimary OB provider unless otherwise specified by [facility]. Results forwarded to ordering provider so they can follow up with thepatient as necessary. Enrike Garcia MD [facility] ORDERABLES Final Re sult documented in this encounter Visit Diagnoses Diagnosis Screening, , for anatomic survey Encounter for anatomic survey documented in this encounter Care Teams Cap Blocker Relationship Specialty Start Date End Date No Pcp[place] [id number] PCP - General Family Medicine 05/20/20 documented as of this encounter
--- OUTSIDE RECORDS SUMMARY | 2024-12-05 14:00 | XMS_ITS | Encounter Summary ---
Author Organization [facility] tem Address [id number] [address] [place] [address] Care Team Providers Care Medical Billing Representative Name Role Phone No Pcp, No Pcp Primary Care Provider Unavailabl e Reason for Visit * Reason Comments IUI Hx gastric bypass Pee's Thyroiditis Encounter Details Date Type Department Care Team (Late st Contact Info) Description 12/05/2024 2:00 PM EDT Office Visit Maternal- Medicine at [facility] [address] [place] [id number] Latricia Garcia MD [address] [address] 20 weeks gestation of (Primary Dx); Previous gastric bypass affecting , antepartum; Obesity affecting in second trimester, unspecified obesity type; Hypothyroidism affecting in second trimester; 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 ([facility]); headache in second trimester Social History Tobacco Use Types Packs/Day Years Used Date Smoking Tobacco: Former Cigarettes S tarted: 2023 Smokeless Tobacco: Never Tobacco Cessation:Counseling Given: Not Answered Alcohol Use Standard Drinks/Week [...] Sign Reading Time Taken Comments Blood Pressure 95/62 12/05/2024 12:46 PM EDT Pulse 73 12/05/2024 12:46 PM EDT Temperature - - Respiratory Rate - - Oxygen Saturation - - Inhaled Oxygen Concentration - - Weight 116.6 kg (257 lb) 12/05/2024 12:46 PM EDT Height 180.3 cm (5' 11 ) 12/05/2024 12:46 PM EDT Body Mass Index 35.84 12/05/2024 12:46 PM EDT documented in this encounter Patient Instructions * Attachments The following attachments cannot be sent through Care Everywhere. * Preeclampsia (Vietnamese) documented in this encounter Progress Notes * Latricia Garcia MD - 12/05/2024 2:00 PM EDT Images from the original note were not included. [facility] Maternal- Medicine Consult Note Reason For Consult: HPI: Jaz Howell is a 29 y.o. at 20w1d with Estimated Date of Delivery: 04/23/25 Chief Complaint Patient presents with IUI Hx gastric bypass Pee's Thyroiditis I have reviewed the pertinent available patient records including but not limited to notes, labs and images She presents today with her significant other. She reports that she is doing well. She reports normal movements and she denies leakage of fluid, contractions or vaginal bleeding. She denies fever, chills, nausea, vomiting, shortness of breath, chest pain, headache, blurry vision, right upper quadrant pain or edema. Had an episode of vaginal bleeding over the weekend that has since resolved. 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 History of elevated TPO. She has had significant improvement of the thyroid since the weight loss Bipolar disorder on seroquel lamictal and zoloft.She follows with the behavioral health up in [place] History of migraines. Has been getting some worsening of her headaches during the She has a history of a significant bleeding episode which was believed to be secondary to a miscarriage event where she had prolonged bleeding for about 20 days. No history of heavy menses or easy bruising otherwise, She also had a Hematology workup at that time her von Willebrand level was normal. She did require progesterone and tranexamic acid as well as a blood transfusion and this was in 2022 Denies family history of: Learning difficulties, congenital anomalies, DVT/VTE, or other inherited conditions Cell free DNA: low risk Carrier screen: negative MSAFP: negative Denies smoking, alcohol or other substance use in Denies exposure to cat litter, farming animals, toxic exposure to chemical at work/environment Recent hospitalization: no Review of systems: Review of systems was noncontributory OB Hx: OB History Para Term AB Living 1 SAB IAB Ectopic Multiple Live Births # Outcome Date GA Lbr George/2nd Weight Sex Type Anes PTL Lv 1 Current PMH: Past Medical History: Diagnosis Date ADD (attention deficit disorder) Anemia Bipolar 1 disorder (CMS-HCC) Disease of thyroid gland GERD (gastroesophageal reflux disease) Pee's thyroiditis Hx of iron deficiency anemia 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 Take with meals., Disp: , Rfl: lamoTRIgine (LaMICtal) 200 mg tablet, Take 1 tablet (200 mg total) by mouth in the morning., Disp: , Rfl: lansoprazole (PREVACID) 30 mg capsule, Take 1 capsule (30 mg total) by mouth in the morning., Disp:, Rfl: levothyroxine (SYNTHROID, LEVOTHROID) 50 MCG tablet, Take 1 tablet (50 mcg total) by mouth in the morning., Disp: , Rfl: [id number] acid ( 19) 29 mg iron- 1 mg tablet,chewable, Chew 1 tablet and swallow in the morning., Disp: , Rfl: QUEtiapine (SEROquel) 25 mg tablet, Take 1 tablet (25 mg total) by mouth nightly., Disp: , Rfl: sertraline (ZOLOFT) 25 mg tablet, Take 1 tablet (25 mg total) by mouth in the morning., Disp: , Rfl: magnesium oxide (MAGOX) 400 mg tablet, Take 1 tablet (400 mg total) by mouth in the morning and 1 tablet (400 mg total) before bedtime., Disp: 120 tablet, Rfl: 1 SH: Social History Socioeconomic History Marital status: Spouse name: Not on file Number of children: Not on file Years of education: Not on file Highest education level: Not on file Occupational History Not on file Tobacco Use Smoking status: Former Types: Cigarettes Start date: 2023 Smokeless tobacco: Never Vaping Use Vaping status: Never Used Substance and Sexual Activity Alcohol use: Not Currently Drug use: Never Sexual activity: Yes Partners: Male control/protection: Other Other Topics Concern Not on file Social History Narrative Not on file Social Drivers of Health Financial Resource Strain: Not on file Food Insecurity: No Food Insecurity (12/05/2024) Hunger Screening Food Insecurity - Worry: Never True Food Insecurity - Inability: Never True Transportation Needs: Not on file Physical Activity: Not on file Stress: Not on file Social Connections: Not on file Interpersonal Safety: Not on file Housing Instability: Not on file Physical Exam: Vital Signs Vitals: 12/05/24 1246 BP: 95/62 BP Site: Left Arm BP Postition: Lying BP CUFF SIZE: L (13-17 inches) Pulse: 73 Weight: 116.6 kg (257 lb) Height: 180.3 cm (5' 11 ) Physical Exam: Gen: Not in acute distress, alert and oriented. Eyes: Pupils equal and reactive Chest: Nonlabored breathing Cardiac: Pulse was regular on vital signs assessment Abdomen: Gravid Skin/extremities: Appears intact. No visible lesions MS:no visible edema Neuro: No focal deficits Notes/Imaging/Labs reviewed No visits with results within 1 Month(s) from this visit. Latest known visit with results is: Abstract on 10/26/2024 Component Date Value Ref Range Status HIV 1&2 AB/AG 09/26/2024 non reactive Final Hemoglobin A1C 09/26/2024 4.8 4.0 - 6.0 % Final Syphilis 09/26/2024 non reactive Final Rubella immune IgG 09/26/2024 2.78 Final Abo/Rh(D) 09/26/2024 O Positive Final Antibody Screen 09/26/2024 negative Final Hepatitis B Surface Antigen 09/26/2024 negative Final Ultrasound findings Pertinent Ultrasound findings are see report Assessment/Plan 29 y.o. @ at 20w1d with Estimated Date of Delivery: 04/23/25 here for consultation regardin. 20 weeks gestation of This is an IUI . On ultrasound today placenta is away from the cervical os. Anatomy scan incomplete. This is a sperm donor who is a carrier for cystic fibrosis. She has screened negative. Understands 50% risk for the fetus to be a carrier. 2. Previous gastric bypass affecting , antepartum 3. Obesity affecting in second trimester, unspecified obesity type Sleeve gastrectomy resect the greater curvature of the stomach including the fundus. It promote rapid gastric emptying, accelerated transient of nutrients into duodenum and proximal tested and fairlychanges the microbiome. Complications associated with following bariatric surgery include but not limited to bowel obstruction, Band slippage, gastric ulcers and staple line strictures. Micronutrient supplementation may include Vitamins B1, B6, B12, D, and K, zinc, biotin, iron and calcium citrate. We discussed that given the theoretical risk of dumping syndrome with a 50 g glucose challenge testalternative testing for gestational diabetes should be considered in those pregnancies who cannot tolerate sugared soft drinks. Dumping syndrome typically does not occur in women who have undergone restrictive-type bariatric procedures such as gastric banding. These women can undergo standard testing for GDM. Prior A1c was 4.8, which excludes pre-gestational diabetes. The patient has been able to tolerate high glucose drink so far. She is interested in to trialing the Glucola screen. If she is not able to tolerate it then reviewed the option of monitoring FSBG x4/day (fasting and 1hr postprandial) for 1-2 weeks at 24-28 weeks gestation. Additional recommendations for woman status post bariatric surgery include a nutrition consult (if not already placed), surveillance for adequate maternal weight gain during , serial growth ultrasounds. Due to micronutrient deficiencies, initial evaluation for micronutrient deficiencies includes laboratory workup of CBC, thiamine, vitamin B12, ferritin, iron, folate, vitamin-D and calcium. In each trimester follow-up with routine routine laboratory workup CBC, ferritin, B12, calcium and vitamin-D is recommended. Vitamin B1 deficiency is associated with neurological deficits, that are prominent if left untreated. The most common manifestation vitamin B1 deficiency in post bariatric bypass surgical patients isWernicke encephalopathy (encephalopathy, ocular motor dysfunction, and gait ataxia). Patients are re commended 50 mg of thiamine once to twice daily following bariatric surgery. Vitamin B12 deficiency results in pernicious anemia. Chronic vitamin B12 deficiency can also resultin peripheral neuropathy, which may not be reversible. Typically the body has 12-18 months storage of vitamin B12, thus vitamin B12 deficiencies commonly identified 2 years following bariatric surgery. Her current BMI is 35 risks of obesity in the reviewed. Micronutrient Dosing Recommendations: Calcium: recommend 1000-1200mg daily; if deficient, recommend 7073-6231 mg PO daily in divided doses Vitamin D: recommend 800IU during and ; if deficient, recommend 3000-6000IU of D3 daily Vitamin B1: recommend 50mg daily; if deficient, recommend 100-250mg monthly IM injects or 100mg TIDPO until symptoms resolve Vitamin B12: recommend 35-100mcg daily PO; if deficient, recommend 1000mcg daily PO until level normalize Folate: recommend 800mcg-1000mcg daily PO (do not exceed 1mg daily); if deficient, recommend 1000mcg daily PO until levels normalize Iron: recommend 45-60mg of elemental iron daily from all sources; if deficient, recommend 150-300mgPO BID to TID OR IV iron 4. Hypothyroidism affecting in second trimester In regards to her hypothyroidism, although profound hypothyroidism is associated with an increase in numerous complications including miscarriage, premature delivery, placental abrutpion, preeclampsia, growth restriction, and neuro psychological and cognitive impairments, these risks are quite avoidable with routine replacement to a euthyroid state. She should have regular screening over the balance of her (typically every 4-6 weeks) with adjustments in her medication dose to maintain a euthyroid state. Specifically you should attempt to maintain TSH values less than 2.5 mU/L.After delivery, the dose of the thyroxine should be reduced to pre- levels and TSH measured 6 to 8 weeks later. She has been compliant with her Synthroid medication. Last TSH was within goal. 5. 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 ([facility]) I reviewed with the patient that stability of mood for 6 to 24 months prior to is predictive of a lower risk of recurrent mood episodes during and . Bipolar affective disorder in is associated with an increased risk for recurrent mood episodes during and especially in the period such as depression and psychosis. Treatment with psychotropics has been shown to decrease the frequency of recurrence of these episodes. Lamictal is a first-line medication with a favorable safety profile. Due to metabolic changes in , it is likely that she will need to have serum levels of her lamotrigine checked in the furj3cw and 3rd trimester in order to ensure adequate dosing. While monotherapy with low doses of psychotropics and mood stabilizers is typically the rule of thumb during , Quetiapine is a second-line agent and as an atypical antipsychotic has a relatively low placental passage rate compared to other atypical antipsychotics. Most studies looking at risk of congenital anomalies in patients with bipolar affective disorder do not show an increased risk compared to the general population, i.e., 2% to 5% percent risk for defects. Some studies looking at quetiapine specifically have suggested a mild increase in the risk of certain anomalies such as cardiovascular malformations, though the absolute risk is very low. Quetiapine has also been associated in some studies with growth disorders ranging from large for gestational age to small for gestational age. Risk of extrapyramidal effects and withdrawal symptoms in the discussed. Lack of long-term neurodevelopmental studies reviewed. Serial growth scans are recommended to screen for these disorders. As an atypical antipsychotic, quetiapine can make patients prone to obesity or inappropriately high weight gain during andgestational diabetes mellitus. I recommended an early 1 hour GTT to screen for this and an appointme nt with a dietitian. I also reviewed with the patient that patients taking atypical antipsychotics can sometimes have neonates with adaptation syndrome. The torch straightener and heater should be made awareat the time of delivery of the mother's medication exposures. She is also on zoloft. Most studies show that SSRIs aren't associated with defects. Reviewed the risk of pulmonary hypertension in less than 04/999 fetus is exposed to SSRIs in . In addition we discussed withdrawal and reviewed with her that her baby might experience temporary signs and symptoms of discontinuation -- such as jitters, irritability, poor feeding and respiratory distress -- for up to a month after . Well designed studies on long-term neurodevelopmental outcomesare lacking. She vocalized understanding. Recent concerns from the FDA reviewed and current ACOG /SMFM guidelines discussed. The patient accepts risks with the above medications and desires to continue them. She should closely follow-up with her psychiatrist. 6. headache in second trimester - magnesium oxide (MAGOX) 400 mg tablet; Take 1 tablet (400 mg total) by mouth in the morning and 1tablet (400 mg total) before bedtime. Dispense: 120 tablet; Refill: 1 Supportive measures for headache management in discussed. Education on red flag symptoms given. If her headaches persist refer to neurology and consider brain imaging. She is not interested in further genetic testing. Recommendations: Follow-up survey scheduled Serial growth assessments every 4 weeks after the anatomy scan at primary OB office testing to be initiated at 32 weeks weekly NST and DVP in the setting of multiple maternal comorbidities at primary OB office Continue to monitor patient mood. The patient should continue to follow with her psychiatrist. Continue to monitor her thyroid function please see above recommendations Continue evaluation for micronutrient deficiencies every trimester: CBC, ferritin, B12, calcium andVitamin D Alternative testing for gestational diabetes should be considered if patient cannot tolerate 50g GCT. Consider FSBG x4/day x1-2 weeks as alternative testing Term delivery anticipated local hospital please consider induction of labor at 39 weeks Ensure the patient has adequate IV access during labor she is at risk of hemorrhage. The patient was given bleeding precautions Plan reviewed with patient. She vocalized understanding all questions answered. The patient is to continue with routine care in your office Thank you for allowing me to participate in her care. Please contact me if you have any concerns. Latricia Garcia MD, FACOG (she/hers) Maternal- Medicine [facility] [address] [facility] [address] [place] [address] This document was created with [email or web address] technology. Though I make every effort to review the dictation as it is transcribed, on occasion the spoken word can be misinterpreted by the technology leading to inappropriate words, phrases, or sentences. This note is addressed to the requesting provider as a consultation for clinical guidance. Specificmedical abbreviations are occasionally used and those are generally approved by the [place] [employer]?Board of?Obstetrics and?Gynecology?as well as?[place]???s abbreviations. The above plan of care was based solely on the diagnoses for which a consultation was requested. ?More frequent testing may be indicated based on her other medical/obstetrical conditions. The management of other or medical conditions is beyond the scope of requested consultation and will c ontinue to be followed by the primary hand striper or primary care provider. Note to patient: The Century Cures Act makes medical notes like these available to patients inthe interest of transparency. However, be advised this is a medical document. It is intended as peer to peer communication. It is written in medical language and may contain abbreviations or verbiagethat are unfamiliar. It may appear blunt or direct. Medical documents are intended to carry relevant information, facts as evident, and the clinical opinion of the practitioner. * Chiquita Shen RN - 12/05/2024 2:00 PM EDT Headache/epigastric pain/blurry vision/swelling? Patient reports daily moderate headaches, nothing helps with the pain. Reports swelling severe swelling in feet last week but took 2 days off work andswelling improved. Patient went to the hospital to get evaluated for high BP. BP was never elevatedin hospital and she was discharged home. Cramping/contractions? No Spotting/vaginal bleeding? Reports bright red bleeding with clots on Tuesday night. Patient went to triage and was checked and cervix was closed and was told everything looked okay. Patient dischargedhome, she is still getting brown old blood. Loss or gush of fluid like your water may have broken? No Do you have cats at home? Yes Do you change the litter box (reason: risk of toxoplasmosis)? Patient does not change litter Genetic testing done this here or other office? Yes, low risk. 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 NA Recent ER visits or hospitalizations? See notes above Bring blood sugar log or meter with you today? (Please bring them with you for every visit at [facility]) NA Flu vaccine (Feb-June)? NA Any concerns that you would like me to mention to the provider today? Questions about glucose testing and her having gastric bypass surgery documented in this encounter Plan of Treatment Upcoming Encounters Date Type Department Care Team (Late st Contact Info) Description 01/03/2025 2:15 PM EDT Appointment Maternal Medicine [place] [address] [place] [id number] documented as of this encounter Visit Diagnoses Diagnosis 20 weeks gestation of - Primary Previous gastric bypass affecting , antepartum Obesity affecting in second trimester, unspecified obesity type Hypothyroidism affecting in second trimester 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 ([facility]) headache in second trimester documented in this encounter Care Teams Medical Billing Representative Relationship Specialty Start Date End Date No Pcp, [place] [id number] PCP - General Family Medicine 05/20/20 documented as of this encounter
--- OUTSIDE RECORDS SUMMARY | 2024-12-15 23:19 | XMS_ITS | Encounter Summary ---
Author Organization [facility] Address [address] [place] [address] Care Team Providers Care Lacing String Cutter Name Role Phone Unavailable Primary Care Provider Unavailabl e Source Comments In the event this information is protected by the Federal Confidentiality of Alcohol and Drug AbusePatient Records regulations: The Federal rules restrict any use of the information to criminally investigate or prosecute any alcohol or drug abuse patient.[facility] Encounter Details Date Type Department Care Team (Late st Contact Info) Description 09/03/2024 Patient Msg Reproductive Endocrinology Infertility [id number] [place] [address] Manisha Powell APRN.WHEEL MILL OPERATOR [address] [place] [address] Congratulations!!! Social History Tobacco Use Types Packs/Day Years Used Date Smoking Tobacco: Never Assessed Area Deprivation Index Answer Date Claudio rded National Score (1-100), lower number is lower ri sk 82 02/28/2024 State Score (1-10), lower number is lower risk 7 02/28/2024 Data from: https://www.neighborhoodatlas.medicine.[facility].edu/. Last address used for calculation [address] [...]
--- OUTSIDE RECORDS SUMMARY | 2024-12-15 23:20 | XMS_ITS | CCD ---
Author Organization [facility] ion [facility] Care Team Providers Care Recoverer Name Role Phone Robin Appiah Primary Care Provider [phone] MACKENZIE BRITO Referring Unavailable ROBIN APPIAH Primary Care Unavailable RASHARD OLIVERA Referring Unavailable ROBIN APPIAH Primary Care Unavailable RASHARD OLIVERA Referring Unavailable ROBIN APPIAH Primary Care Unavailable RASHARD OLIVERA Admitting Unavailable RASHARD OLIVERA Attending Unavailable ROBIN APPIAH Primary Care Unavailable ROBIN APPIAH Primary Care Unavailable ROBIN APPIAH Primary Care Physician Amanda Ford Unavailable [phone] MD Robin Appiah Primary Care Provider [phone] MELY Ford Attending Provider MELY Ford Primary Care Provider DO Jack Easton Emergency Provider MARYSOL Jett Emergency Provider [phone] MD Lashonda Farhad Admit Provider MD Farhad Gallego Attending Provider [phone] MELY Ford Attending Provider SHARRON Jefferson Attending Provider Petr Lay Unavailable Romeo Santana Unavailable MELY Ford Primary Care Provider Esther, DO Romeo A Attending Provider [phone] Merylrbacher PUBLIC RELATIONS PLAYER, Amanda A Primary Care Provider Unavailable Rohrbacher MOLDING FITTER, Amanda Primary Care Provider Romeo Santana DO Attending Provider Rosarioacher PUBLIC RELATIONS PLAYER, Amanda A Primary Care Provider Unavailable Primary Care Provider Unavailabl e DAVID, SHELLY G Referring Unavailable Unavailable Primary Care Provider Unavailabl e SAÚL ENRIQUEZ Attending Unavailable Rohrbacher PUBLIC RELATIONS PLAYER, Amanda A Primary Care Provider DAVID, SHELLY [...] Unavailable David, Shelly G Attending Unavailable Rohrbacher, [facility] Primary Care Unavailable David, Shelly G Admitting Unavailable David, Shelly G Attending Unavailable Rohrbacher, [facility] Primary Care Unavailable David, Shelly G Admitting Unavailable Rohrbacher, Amanda Primary Care Unavailable David, Shelly G Attending Unavailable Rohrbacher, [facility] Primary Care Unavailable JUAN, LES R Admitting Unavailable JUAN, LES R Attending Unavailable Rohrbacher MOLDING FITTER, Amanda Primary Care Provider Kassidy Arriaza DO Emergency Provider No Pcp, No Pcp Primary Care Provider Unavailabl e Chris Dickerson DO Attending Provider Les Martinez DO Attending Provider Elizabeth Tom Attending Provider Eduardo Cruz DO Attending Provider [phone] JUAN, LES R Referring Unavailable NO PCP, NO PCP Primary Care Unavailable LATRICIA LINDQUIST Attending Unavailable JUAN, LES R Referring Unavailable NO PCP, NO PCP Primary Care Unavailable Amanda Ford Primary Care Unavailable Kassidy Arriaza Admitting Unavailable Kassidy Arriaza Attending Unavailable Chris Dickerson Admitting Unavailable Chris Dickerson Attending Unavailable Eduardo Cruz Admitting Unavailable Eduardo Cruz Attending Unavailable Amanda Ford Primary Care Unavailable DARLEEN SINCLAIR Attending Unavailable LAUREN SINCLAIRMAAri F Referring Unavailable UNIQUE MARTINEZY Attending Unavailable LES MARTINEZ Attending Unavailable UNIQUE MARTINEZY Referring Unavailable UNIQUE MARTINEZY Attending Unavailable Allergies Allergy Classification Reported Allergen(s) Allergy Type Date of Onset Reaction(s) Facility (20 sources) Non-steroidal anti-inflammato ry agent Drug allergy Unknown Vetr Other (18 sources) Non-steroidal anti-inflammato ry agent; Translations: [NSAIDs] Drug Allergy 3 Unknown [facility] Healthcare (1 source) ALLERGIES NOT ON FILE; Translations: [ALLERGIES NOT ON FILE] Propensity to adverse reactions (disorder) [facility] 3 Repository (5 sources) NSAIDs; Translations: [NSAIDS (NON-STEROIDAL ANTI-INFLAMMATO RY DRUG)] Propensity to adverse reactions to drug 5 [employer] [facility] (1 source) NSAIDs Drug allergy (disorder) 5 [facility] Repository Medications Current Medications Medication Drug [...] bedtime) for sleep, 60 tab(s), Refill(s) 2, [id number], 182, cm, 07/09/19 13:03:00 EDT, [...] 05-06-2020 ipratropium-albuterol (DUONEB) nebulizer solution 1 ampule benztropine mesylate 1 mg oral tablet (4 sources) Anticholinergic, Antihistamine Start: 01-30-2020 benztropine 1 mg Tab Refills(s) 0 Start Date: 01/30/20 Status: Ordered calcium chloride 0.0014 meq/ml / potassium chloride [...] 100 mg capsule Active 0 .ROUTE .COMPLEX April 26, 2024 9:52am TAKE 1 CAPSULE BY MOUTH TWICE DAILY NEEDED FOR CONSTIPATION Complies with drug therapy Start: 04-16-2024 End: 04-26-2024 take 1 capsule by mouth twice daily as needed for constipation Docusate Sodium (Stool Softener) 100 mg capsule Discontinued 0 .ROUTE .COMPLEX April 16, 2024 8:58am April 26, 2024 8:57am TAKE 1 CAPSULE BY MOUTH TWICE DAILY NEEDED FOR CONSTIPATION Start: 06-17-2022 End: 04-16-2024 take 1 capsule by mouth once daily Docusate Sodium 100 mg capsule Discontinued 100 MG PO Daily April 16, 2024 1:00am April 16, 2024 9:58am Start: 06-11-2022 End: 12-07-2023 take 1 capsule by mouth twice daily as needed for constipation Docusate Sodium (Colace) 100 mg capsule Discontinued 100 MG PO Twice daily as needed for Constipation 04 02December 06, 2023 12:00am December 07, 2023 6:44am [...] QID, # 60 tab(s), Refills(s) 2, Pharmacy: [facility] Start Date: 10/09/18 Status: Ordered lamoTRIgine 200 mg oral tablet (20 sources) Mood Stabilizer, Anti-epileptic Agent Start: 04-10-2022 Lamotrigine Active MG TABLET April 10, 2022 12:00am Start: 01-30-2020 lamotrigine 20 0 mg Tab 300 mg = 1.5 tab(s), Oral, Daily, # 45 tab(s), Refills(s) 5, Pharmacy: [facility], 182, cm, 12/06/19 12:03:00 EDT, Height/Length Dosing, [...] take 1 tablet by mouth once daily Levothyroxine 50 mcg tablet Active 50 MCG PO Daily 90 90 April 26, 2024 1:00am Complies with drug therapy Start: 10-13-2023 End: 04-26-2024 take 1 capsule [...] % adhesive patch,medicated Active 0 .ROUTE .COMPLEX April 26, 2024 9:53am APPLY 1 PATCH TOPICALLY ONCE DAILY. REMOVE AFTER 12 HOURS Complies with drug therapy Start: 02-24-2024 End: 02-24-2024 apply 1 dose [...] qPM, # 90 tab(s), Refills(s) 2, Pharmacy: [id number], 182, cm, 12/06/19 12:03:00 EDT, Height/Length Dosing, 200.7, kg, 11/28/19 9:08:00 EDT, Weight Dosing Start Date: 03/17/20 Status: Ordered magnesium oxide 400 mg oral tablet (2 sources) Start: 12-05-2024 take 1 tablet by mouth once in the morning, then take 1 tablet by mouth at bedtime magnesium oxide (MAGOX) 400 mg tablet Indications: headache in second trimester Take 1 tablet (400 mg total) by mouth in the morning and 1 tablet (400 mg total) before bedtime. 120 tablet 1 12/05/2024 Active 2 ml ondansetron 2 mg/ml injection [...] take 1 capsule by mouth twice daily Polysaccharide Iron Complex (Pro Fe) 180 mg iron capsule Active 180 MG PO Twice daily April 23, 2024 3:51pm Complies with drug therapy Start: 12-07-2023 End: 04-23-2024 take 1 capsule by mouth once daily Polysaccharide Iron Complex (Pro Fe) 180 mg iron capsule Discontinued 180 MG PO Daily December 07, 2023 12:00am April 23, 2024 3:52pm take 2 capsules by m outh twice daily Polysaccharide Iron Complex (PRO FE) 180 mg iron cap Take 2 capsules by mouth two times a day. Active [id number] acid ( 19) 29 mg iron- 1 mg tablet,chewable (4 sources) [id number] acid ( 19) 29 mg iron- 1 [...] take 1 tablet by mouth at bedtime Quetiapine 25 mg tablet Active 25 MG PO Bedtime April 10, 2022 1:00am Complies with drug therapy Start: 04-10-2022 Quetiapine Act misti MG TABLET April 10, 2022 12:00am Start: 03-12-2020 take 2 tablets by mo [facility] at bedtime quetiapine 50 mg oral tablet 100 mg = 2 tab(s), Oral, Bedtime, # 60 tab(s), Refills(s) 5, Pharmacy: [id number], 182, cm, 12/06/19 12:03:00 EDT, Height/Length Dosing, 200.7, kg, 11/28/19 9:08:00 EDT, Weight Dosing Start Date: 03/12/20 Status: Ordered take 1 tablet by [facility] once daily QUEtiapine (SEROQUEL XR) 50 MG extended release tablet Take 50 mg by mouth nightly 0 Active 72 hr scopolamine 0.0139 mg/hr transdermal system (2 sources) Anticholinergic Start: 05-06-2020 scopolamine (TRANSDERM-SCOP) transdermal patch 1 patch sertraline 25 mg oral tablet (13 sources) Serotonin Reuptake Inhibitor Start: 09-25-2024 3 ml sodium chloride 9 mg/ml injection [...] food, # 60 cap(s), Refills(s) 2, Pharmacy: [facility], 182, cm, 12/06/19 12:03:00 EDT, [...] every eight hours as needed for pain Hydrocodone-Acetami nophen 5-325 mg tablet Discontinued 1 TAB PO Q8H as needed for pain 7 2 August 01, 2021 April 10, 2022 7:18pm ALPRAZolam 0.5 mg oral tablet (20 sources) Benzodiazepine Start: 06-17-2022 End: 12-02-2024 take 1 tablet by mouth twice daily as needed for anxiety Alprazolam (Xanax) 0.5 mg tablet Discontinued 0.5 MG PO Twice daily as needed for Anxiety June 03, 2023 9:03am December 02, 2024 11:33pm Start: 06-10-2022 End: 06-03-2023 take 1 tablet [...] anxiety, # 60 tab(s), Refills(s) 1, Pharmacy: [id number], 182, cm, 12/06/19 12:03:00 EDT, Height/Length Dosing, 200.7, kg, 11/28/19 9:08:00 EDT, Weight Dosing Start Date: 01/30/20 Status: Ordered Start: 10-08-2019 End: 04-10-2022 take 1 tablet by mouth three times daily as needed for anxiety Alprazolam (Xanax) 0.5 mg Tablet Discontinued 0.5 MG PO Three times daily as needed for Anxiety October 08, 2019 12:00am April 10, 2022 7:18pm atomoxetine 40 mg [...] (PF) (MARCAINE) 0.5 % injection 200 mg 12 hr buPROPion hydrochloride 150 mg extended release oral tablet (15 sources) Aminoketone Start: 04-26-2024 End: 12-02-2024 take 1 tablet by mouth once daily Bupropion Hcl (Wellbutrin Sr) 150 mg tablet sustained-release 12 hr Discontinued 150 MG PO Daily April 26, 2024 1:00am December 02, 2024 11:34pm End: 10-22-2024 take 1 tablet by mouth [...] NEEDED FOR 30 DAYS Start: 04-10-2022 End: 12-02-2024 take 1 tablet by mouth twice daily Buspirone 15 mg tablet Discontinued 15 MG PO Twice daily June 03, 2023 9:01am December 02, 2024 11:34pm Start: 04-10-2022 End: 06-10-2022 Buspirone Discontinued MG [...] Discontinued diclofenac sodium 0.01 mg/mg topical gel (17 sources) Nonsteroidal Anti-inflammatory Drug Start: 11-28-2023 End: [...] D2) 1,250 mcg (50,000 unit) capsule Discontinued 58130 UNIT PO every week October 08, 2019 12:00am August 01, 2021 2:19pm Takes on Tuesday Start: 05-25-2019 Vitamin D2 200 0 intl units oral capsule Refills(s) 0 Start Date: 05/25/19 Status: Ordered Start: 01-12-2019 End: 05-08-2020 take 1 capsule by mouth every week vitamin D (ERGOCALCIFEROL) 70134 units CAPS capsule Indications: Vitamin D deficiency [...] 05-06-2020 midazolam PF (VERSED) injection 1 mg mupirocin 20 mg/ml topical cream (20 sources) RNA Synthetase Inhibitor Antibacterial Start: 06-10-2022 End: 12-02-2024 Mupirocin Calcium 2 % cream Discontinued 1 APPLIC TOPICAL Twice daily as needed for GENITAL BOILS June 10, 2022 1:00am December 02, 2024 11:34pm Start: 02-08-2022 Mupirocin Calc ium 2 % [...] a day. 06/03/2023 Active Start: 06-03-2023 End: 12-02-2024 take 1 tablet by mouth twice daily Naltrexone 50 mg tablet Discontinued 100 MG PO Twice daily April 23, 2024 3:51pm December 02, 2024 11:34pm Start: 06-03-2023 take 50 mg by mouth once daily Naltrexone Active 50 MG PO Daily June 03, 2023 1:00am take 1 tablet by ashley th every twenty-four hours Naltrexone HCl 50 MG 1 tablet Orally Once a day Active oxyCODONE hydrochloride 5 mg oral tablet (17 sources) Opioid Agonist Start: 12-09-2023 End: 12-20-2023 [...] CLEANUP) traMADol hydrochloride 50 mg oral tablet (17 sources) Opioid Agonist Start: 12-07-2023 End: 01-17-2024 [...] Translations: [Counseling, unspecified] 05-07-2024 Episodic Allergic reactions (5 sources) Acute urticaria; Translations: [Other urticaria] 04-26-2024 [...] 4 03-08-2024 Episodic Deficiency and other anemia (19 sources) Anemia; Translations: [Anemia, unspecified] 06-10-2022 Episodic [...] 4 11-28-2023 Chronic Fever of unknown origin (16 sources) Fever; Translations: [Fever, unspecified] 06-08-2023 Episodic Genitourinary symptoms and ill-defined conditions (2 sources) Painful micturition, unspecified; Translations: [Other microscopic hematuria] Episodic Headache; including migraine (1 source) Headache; including migraine; Translations: [Headache, unspecified] Onset: 5 Hemorrhage during ; abruptio placenta; placenta previa (4 sources) Bleeding from female genital tract during [...] Onset: 9 12-05-2018 Chronic Nausea and vomiting (16 sources) Vomiting; Translations: [Vomiting, unspecified] 06-08-2023 Episodic Nutritional deficiencies (20 sources) Vitamin D deficiency; Translations: [Vitamin D deficiency, unspecified] Onset: 9 Resolved: 2 01-12-2019 Chronic Nutritional deficiencies (4 sources) Iron deficiency; Translations: [Vitamin A deficiency, unspecified] Onset: 2 Resolved: 2 Episodic Osteoarthritis (20 sources) Arthritis of shoulder region joint; Translations: [Primary osteoarthritis, unspecified shoulder] Chronic Other complications of (3 sources) Maternal obesity complicating , childbirth and the puerperium, antepartum; Translations: [Obesity complicating , second trimester] 12-05-2024 Chronic Other complications of (4 sources) Supervision of resulting from assisted reproductive technology, first trimester; Translations: [ resulting from assisted reproductive technology] Onset: 5 08-16-2024 Episodic Other complications of (2 sources) Conceived by in vitro fertilization; Translations: [Supervision of resulting from assisted reproductive technology, first trimester] 10-22-2024 Episodic Other complications of (5 sources) Hypothyroidism in ; Translations: [Endocrine, nutritional and metabolic diseases complicating , second trimester] Onset: 5 12-05-2024 Episodic Other complications of (4 sources) Bipolar disorder; Translations: [Other mental disorders complicating , second trimester] Onset: 5 12-05-2024 Episodic Other complications of (1 source) Supervision of resulting from assisted reproductive technology, unspecified trimester; Translations: [ resulting from assisted reproductive technology] 12-05-2024 Episodic Other complications of (3 sources) Headache; Translations: [Other specified related conditions, second trimester] Onset: 5 12-05-2024 Episodic Other complications of (1 source) Other specified related conditions, second trimester; Translations: [Other specified related conditions, second trimester] Onset: 5 Episodic Other connective tissue disease (4 sources) Plantar fasciitis 09-03-2018 Episodic Other connective tissue disease (1 source) Lateral epicondylitis, right elbow Episodic Other connective tissue disease (2 sources) Bursitis of right shoulder Episodic Other connective tissue disease (20 sources) Disorder of ligament, unspecified site; Translations: [Laxity of ligament] Episodic Other connective tissue disease (14 sources) Laxity of ligament; Translations: [Disorder of ligament, unspecified site] 10-12-2023 Episodic Comment on above: right shoulder Other connective tissue disease (4 sources) Bilateral plantar fasciitis; Translations: [Plantar fasciitis, bilateral] Onset: 9 12-05-2018 Other female genital disorders (20 sources) Abnormal uterine bleeding; Translations: [Other specified abnormal uterine and vaginal bleeding] 04-10-2022 Chronic Other gastrointestinal disorders (15 sources) Constipation; Translations: [Constipation, unspecified] 06-08-2023 Episodic Other gastrointestinal disorders (1 source) Constipation, unspecified; Translations: [Constipation, unspecified] 06-08-2023 Episodic Other gastrointestinal disorders (6 sources) History of bypass of stomach; 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] Onset: 5 08-22-2024 Episodic Other hematologic conditions (2 sources) [...] chronic pain] Chronic Other nervous system disorders (12 sources) Carpal tunnel syndrome of right wrist; Translations: [Carpal tunnel syndrome, right upper limb] 11-01-2023 Chronic Other nervous system disorders (20 sources) Carpal tunnel syndrome, right upper limb; Translations: [Carpal tunnel syndrome] 11-01-2023 Chronic Other nervous system disorders (1 source) Postoperative pain ; Translations: [Post-op pain] Episodic Other nervous system disorders (14 sources) Numbness of hand; Translations: [Anesthesia of [...] shoulder region] Episodic Other non-traumatic joint disorders (14 sources) Instability of right shoulder joint; Translations: [...] conditions (not mental disorders or infectious disease) (5 sources) Thyroid function tests abnormal; Translations: [Abnormal results of thyroid function studies] Onset: 5 08-22-2024 Episodic Other skin disorders (1 source) Follicular disorder, unspecified Episodic Residual codes; unclassified (20 sources) Obstructive sleep apnea syndrome; Translations: [Obstructive sleep apnea (adult) (pediatric)] 06-03-2023 Chronic Comment on above: patient denies. slee p study 2009 Residual codes; unclassified (18 sources) Other specified postprocedural states; Translations: [Other postprocedural status] Onset: 2 Resolved: 2 Episodic Residual codes; unclassified (15 sources) Chill; Translations: [Chills (without fever)] 06-08-2023 Episodic Residual codes; unclassified (17 sources) History of sleeve gastrectomy; Translations: [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]] 06-08-2023 Episodic Comment on above: April 2020 Residual codes; unclassified (1 source) Chills (without fever); Translations: [Chills (without fever)] 06-08-2023 Episodic Residual codes; unclassified (1 source) 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]; Translations: [Personal history of surgery to other organs] 06-08-2023 Episodic Residual codes; unclassified (9 sources) History of arthroscopic procedure on shoulder; [...] [18 weeks gestation of ] 11-20-2024 Episodic Residual codes; unclassified (1 source) Gestation period, 20 weeks; Translations: [20 weeks gestation of ] 12-05-2024 Episodic Skin and subcutaneous tissue infections (20 sources) Abscess; Translations: [Cutaneous abscess, unspecified] 08-01-2021 Episodic Sprains and strains (20 sources) Strain of unspecified muscle, fascia and tendon at shoulder and upper arm level, right arm, initial encounter; Translations: [Strain of other muscles, fascia and tendons at shoulder and upper arm level, right arm, initial encounter] Episodic Substance-related disorders (4 sources) Marijuana user; [...] technology in first trimester (HCC) 08-20-2024 Unclassified (8 sources) OB Reminders Onset: 5 10-22-2024 Unclassified (2 sources) keep next scheduled appointment Unclassified (1 source) IUI Onset: 5 Unclassified (1 source) Pee's Thyroiditis Onset: 5 Past or Other Problems Problem Classification Problem Date Documented Da te Episodic/Chronic Screening and history of mental health and substance abuse codes (1 source) Personal history of nicotine dependence Onset: 07-16-2021 Resolved: 07-16-2021 Episodic Unclassified (1 source) History of bypass of stomach 12-05-2024 Unclassified (1 source) Encounter for supervision of resulting from assisted reproductive technology, antepartum 12-05-2024 NEGATED: Highlighted row has been ruled out!Unclassified (1 source) No known active problems 08-20-2024 Results Test Name Value Interpretation Reference Range Facility US OB 14+ WEEKS ANATOMY SCAN on 12-04-2024 US OB 14+ WEEKS ANATOMY SCAN EXAM: US OB 14+ WEEKS ANATOMY SCAN [...] II, MD, PHD at 06-Dec-2024 08:04:50 AM [facility] Normal Not Available Comment on above: Order Comment: US OB ANATOMY SINGLE W US OB CERVICAL LENGTH Estimated Date of Delivery: 04/23/25 Gestational Age as of 11/20/2024: 18w0d Urinalysis complete panel (U )on 12-03-2024 Comment c/o urinary symptoms or increased blood pressure Name Collection Type:: Voided [facility] Appearance of Urineon 2024 Appearance (U) Clear Normal Clear [facility] Comment on above: Order Comment: Comme nt c/o urinary symptoms or increased blood pressure Name Collection Type:: Voided Performed By: #### A DDONUAPLUS #### [address] Bacteria [Presence] in Urine by AutomatedOrdered By: Eduardo Cruz on 12-02-2024 Bacteria Auto Ql (U) 1+ [HPF] High None Seen [facility] Bilirubin Test strip Ql (U)O rdered By: Eduardo Cruz on 12-02-2024 Bilirubin Ql (U) Negative Negative [facility] Color of Urine by Autoon Color (U) Light-Yellow Normal Yellow [facility] Comment on above: Order Comment: Comme nt c/o urinary symptoms or increased blood pressure Name Collection Type:: Voided Performed By: #### A DDONUAPLUS #### [place] [address] [place] Dipstick and Microscopicon 0 12-02-2024 Bacteria,Urine 1+ [HPF] Normal None Seen [facility] Comment on above: Order Comment: Comme nt c/o urinary symptoms or increased blood pressure Name Collection Type:: Voided Performed By: #### A DDONUAPLUS #### [place] [address] [place] BILIRUBIN,URINE Negative Normal Negative [facility] Comment on above: Order Comment: Comme nt c/o urinary symptoms or increased blood pressure Name Collection Type:: Voided Performed By: #### A DDONUAPLUS #### [address] Glucose Ql (U) Normal Normal Normal [facility] Comment on above: Order Comment: Comme nt c/o urinary symptoms or increased blood pressure Name Collection Type:: Voided Performed By: #### A DDONUAPLUS #### [place] [address] [place] Hyaline Casts,Urine None Normal 0-8 [facility] Comment on above: Order Comment: Comme nt c/o urinary symptoms or increased blood pressure Name Collection Type:: Voided Performed By: #### A DDONUAPLUS #### [place] [address] [place] Mucus,Urine 1+ [LPF] Critically abnormal [facility] Comment on above: Order Comment: Comme nt c/o urinary symptoms or increased blood pressure Name Collection Type:: Voided Result Comment: PERF ORMED BY: [place] [address] PATHOLOGIST TELECASTING ENGINEER DAMIÁN DOSHI M.D. Performed By: #### A DDONUAPLUS #### [address] NITRITE,URINE Negative Normal Negative [facility] Comment on above: Order Comment: Comme nt c/o urinary symptoms or increased blood pressure Name Collection Type:: Voided Performed By: #### A DDONUAPLUS #### [address] OCCULT BLOOD,URINE 3+ Normal Negative [facility] Comment on above: Order Comment: Comme nt c/o urinary symptoms or increased blood pressure Name Collection Type:: Voided Result Comment: PERF ORMED BY: [place] [address] PATHOLOGIST TELECASTING ENGINEER DAMIÁN DOSHI M.D. Performed By: #### A DDONUAPLUS #### [address] PROTEIN,URINE Negative Normal Negative [facility] Comment on above: Order Comment: Comme nt c/o urinary symptoms or increased blood pressure Name Collection Type:: Voided Performed By: #### A DDONUAPLUS #### [address] RBC,Urine 1-2 Normal 0-4 [facility] Comment on above: Order Comment: Comme nt c/o urinary symptoms or increased blood pressure Name Collection Type:: Voided Performed By: #### A DDONUAPLUS #### [address] SPECIFICY GRAVITY,URINE 1.017 Normal 1.001-1.030 [facility] Comment on above: Order Comment: Comme nt c/o urinary symptoms or increased blood pressure Name Collection Type:: Voided Performed By: #### A DDONUAPLUS #### [place] [address] [place] Squamous Epithelial Cell,Urine 1-2 Normal 0-2 [facility] Comment on above: Order Comment: Comme nt c/o urinary symptoms or increased blood pressure Name Collection Type:: Voided Performed By: #### A DDONUAPLUS #### [address] UROBILINOGEN,URINE Normal Normal Normal [facility] Comment on above: Order Comment: Comme nt c/o urinary symptoms or increased blood pressure Name Collection Type:: Voided Performed By: #### A DDONUAPLUS #### [address] WBC,Urine 1-2 Normal 0-4 [facility] Comment on above: Order Comment: Comme nt c/o urinary symptoms or increased blood pressure Name Collection Type:: Voided Performed By: #### A DDONUAPLUS #### [address] Epithelial cells.squamous [# /area] in Urine sediment by Automated countOrdered By: Eduardo Cruz on 12-02-2024 Epithelial cells.squamous Auto (Urine sed) [#/Area] 1-2 [HPF] 0-2 [facility] Erythrocytes [#/area] in Uri ne sediment by Automated countOrdered By: Eduardo Cruz on 12-02-2024 RBC Auto (Urine sed) [#/Area] 1-2 [HPF] 0-4 [facility] Glucose [Mass/volume] in Uri ne by Test stripOrdered By: Eduardo Cruz on 12-02-2024 Glucose Test strip (U) [Mass/Vol] Normal mg/dL Normal [facility] Hemoglobin Test strip Ql (U) Ordered By: Eduardo Cruz on 12-02-2024 Hemoglobin Ql (U) 3+ High Negative [facility] Hyaline casts [#/area] in Ur ine sediment by Automated countOrdered By: Eduardo Cruz on 12-02-2024 Hyaline casts Auto (Urine sed) [#/Area] None [LPF] 0-8 [facility] Ketones [Presence] in Urine by Test stripon 12-02-2024 Ketones Ql (U) Negative Normal Negative [facility] Comment on above: Order Comment: Comme nt c/o urinary symptoms or increased blood pressure Name Collection Type:: Voided Performed By: #### A DDONUAPLUS #### [address] Leukocyte esterase [Presence ] in Urine by Test stripon 12-02-2024 Leukocyte esterase Test strip Ql (U) Negative Normal Negative [facility] Comment on above: Order Comment: Comme nt c/o urinary symptoms or increased blood pressure Name Collection Type:: Voided Performed By: #### A DDONUAPLUS #### [facility] [address] Leukocytes [#/area] in Urine sediment by Automated countOrdered By: Eduardo Cruz on 12-02-2024 WBC Auto (Urine sed) [#/Area] 1-2 [HPF] 0-4 [facility] Mucus [Presence] in Urine by AutomatedOrdered By: Eduardo Cruz on 12-02-2024 Mucus Auto Ql (U) 1+ [LPF] Abnormal [facility] Nitrite Test strip Ql (U)Ord ered By: Eduardo Cruz on 12-02-2024 Nitrite Ql (U) Negative Negative [facility] Protein Test strip (U) [Mass /Vol]Ordered By: Eduardo Cruz on 12-02-2024 Protein (U) [Mass/Vol] Negative Negative [facility] Specific gravity Test strip (U) [Rel density]Ordered By: Eduardo Cruz on 12-02-2024 Specific gravity (U) [Rel density] 1.017 1.001-1.030 [facility] Urobilinogen Test strip (U) [Mass/Vol]Ordered By: Eduardo Cruz on 12-02-2024 Urobilinogen (U) [Mass/Vol] Normal mg/dL Normal [facility] pH of Urine by Test stripon 12-02-2024 pH (U) 5.5 [pH] Normal 5.0-9.0 [facility] Comment on above: Order Comment: Comme nt c/o urinary symptoms or increased blood pressure Name Collection Type:: Voided Performed By: #### A DDONUAPLUS #### [facility] [address] [place] [address] [place] Basophils Auto (Bld) [#/Vol] Ordered By: Elizabeth Osborne ([place]) on 12-01-2024 Basophils (Bld) [#/Vol] 0.0 10 3/uL 0.0-0.1 [facility] Basophils/100 WBC Auto (Bld) Ordered By: Johnson ([place]) [place] on 12-01-2024 Basophils/100 WBC (Bld) 0.3 % 0.2-2.0 [facility] Eosinophils/100 WBC Auto (Bl d)Ordered By: (Roman) Elizabeth [place] on 12-01-2024 Eosinophils/100 WBC (Bld) 1.8 % 0.9-7.0 [facility] Erythrocyte distribution wid th Auto (RBC) [Ratio]Ordered By: (Roman) Elizabeth Osborne on 12-01-2024 Erythrocyte distribution width (RBC) [Ratio] 14.0 % 11.0-15.0 [facility] Globulin Calc (S) [Mass/Vol] Ordered By: (Roman) Elizabeth Osborne on 12-01-2024 Globulin (S) [Mass/Vol] 3.6 g/dL [facility] Glomerular filtration rate ( GFR) estimation in non- AmericanOrdered By: Elizabeth Osborne ([place]) on 12-01-2024 GFR/1.73 sq M.predicted among non-blacks MDRD (S/P/Bld) [Vol rate/Area] mL/min/{1.73_m2} >=60 mL/min/1.73m 2 [facility] Hematocrit Auto (Bld) [Volum e fraction]Ordered By: Elizabeth Osborne ([place]) on 12-01-2024 Hematocrit (Bld) [Volume fraction] 38.0 % 36.0-48.0 [facility] Hemoglobin [Mass/volume] in BloodOrdered By: Elizabeth Osborne ([place]) on 12-01-2024 Hemoglobin (Bld) [Mass/Vol] 13.0 g/dL 12.0-16.0 [facility] Laboratory - Chemistry and C hemistry - challengeOrdered By: Elizabeth Osborne ([place]) on 12-01-2024 Bilirubin Ql (U) Negative NEGATIVE [facility] Glucose (U) [Mass/Vol] Negative NEGATIVE [facility] Ketones Ql (U) Negative NEGATIVE [facility] pH (U) 6.0 [pH] 5.0-9.0 [facility] Specific gravity (U) [Rel density] 1.025 1.005-1.025 [facility] Urobilinogen Qn (U) 1.0 {Fabián'U}/dL 0.2-1.0 [facility] Albumin [Mass/Vol] 3.1 g/dL Low 3.4-5.0 [facility] ALP [Catalytic activity/Vol] 45 U/L Low 46-116 [facility] ALT [Catalytic activity/Vol] 20 U/L 14-59 [facility] AST [Catalytic activity/Vol] 14 U/L Low 15-37 [facility] Bilirubin [Mass/Vol] 0.4 mg/dL 0.2-1.0 [facility] Calcium [Mass/Vol] 8.6 mg/dL 8.5-10.1 [facility] Chloride [Moles/Vol] 106 mmol/L 98-107 [facility] CO2 [Moles/Vol] 25.7 mmol/L 21.0-32.0 [facility] Creatinine [Mass/Vol] 0.37 mg/dL Low 0.55-1.02 [facility] GFR/1.73 sq M.predicted MDRD (S/P/Bld) [Vol rate/Area] mL/min/{1.73_m2} >=60 mL/min/1.73m 2 [facility] Glucose [Mass/Vol] 61 mg/dL Low 74-106 [facility] Potassium [Moles/Vol] 3.9 mmol/L 3.5-5.1 [facility] Protein [Mass/Vol] 6.7 g/dL 6.4-8.2 [facility] Sodium [Moles/Vol] 139 mmol/L 136-145 [facility] Urea nitrogen [Mass/Vol] 3.0 mg/dL Low 7.0-18.0 [facility] Urea nitrogen/Creatinine [Mass ratio] 8.1 mg/mg [facility] Laboratory - Hematology and Cell countsOrdered By: Elizabeth Osborne ([place]) on 12-01-2024 Immature granulocytes/100 WBC (Bld) 1.0 % High 0.0-0.5 [facility] Laboratory - Specimen inform ationOrdered By: Johnson ([place]) [place] on 12-01-2024 Appearance (U) CLEAR CLEAR [facility] Color (U) LT. YELLOW YELLOW [facility] Laboratory - UrinalysisOrder ed By: Johnson ([place]) [place] on 12-01-2024 Leukocyte esterase Test strip Ql (U) Negative NEGATIVE [facility] Nitrite Ql (U) Negative NEGATIVE [facility] Protein Ql (U) Negative NEG/TRACE [facility] Leukocytes [#/volume] correc terry for nucleated erythrocytes in Blood by Automated counOrdered By: Angelina) Elizabeth [place] on 12-01-2024 WBC corrected for nucl RBC Auto (Bld) [#/Vol] 10.0 10 3/uL 4.0-11.0 [facility] Lymphocytes Auto (Bld) [#/Vo l]Ordered By: Angelina) Elizabeth [place] on 12-01-2024 Lymphocytes (Bld) [#/Vol] 2.2 10 3/uL 1.2-3.8 [facility] Lymphocytes/100 WBC Auto (Bl d)Ordered By: Angelina) Elizabeth [place] on 12-01-2024 Lymphocytes/100 WBC (Bld) 22.1 % 20.5-60.0 [facility] MCH Auto (RBC) [Entitic mass ]Ordered By: Johnson ([place]) [place] on 12-01-2024 MCH (RBC) [Entitic mass] 29.8 pg 26.7-34.0 [facility] MCHC Auto (RBC) [Mass/Vol]Or dered By: (Roman) Elizabeth [place] on 12-01-2024 MCHC (RBC) [Mass/Vol] 34.2 g/dL 29.9-35.2 [facility] MCV Auto (RBC) [Entitic vol] Ordered By: Angelina) Elizabeth Osborne on 12-01-2024 MCV (RBC) [Entitic vol] 87.2 fL 81.0-99.0 [facility] Monocytes Auto (Bld) [#/Vol] Ordered By: (Roman) Elizabeth Osborne on 12-01-2024 Monocytes (Bld) [#/Vol] 0.7 10 3/uL 0.3-0.8 [facility] Monocytes/100 WBC Auto (Bld) Ordered By: Angelina) Elizabeth [place] on 12-01-2024 Monocytes/100 WBC (Bld) 6.5 % 1.7-12.0 [facility] Neutrophils Auto (Bld) [#/Vo l]Ordered By: Angelina) Elizabeth [place] on 12-01-2024 Neutrophils (Bld) [#/Vol] 6.9 10 3/uL High 1.4-6.5 [facility] Neutrophils/100 WBC Auto (Bl d)Ordered By: Angelina) Elizabeth [place] on 12-01-2024 Neutrophils/100 WBC (Bld) 68.3 % 43.0-75.0 [facility] No Panel InformationOrdered By: Elizabeth Osborne ([place]) on 12-01-2024 Urine Microscopic Review NO [facility] Urine Occult Blood Negative NEGATIVE [facility] Eosinophils # (Auto) 0.2 10 3/uL 0.0-0.7 [facility] Immature Granulocyte # (Auto) 0.10 10 3/uL High 0.00-0.03 [facility] Platelet mean volume Auto (B ld) [Entitic vol]Ordered By: Johnson ([place]) [place] on 12-01-2024 Platelet mean volume (Bld) [Entitic vol] 8.3 fL Low 9.5-13.5 [facility] Platelets Auto (Bld) [#/Vol] Ordered By: Johnson ([place]) [place] on 12-01-2024 Platelets (Bld) [#/Vol] 177 10 3/uL 150-450 [facility] RBC Auto (Bld) [#/Vol]Ordere d By: Johnson ([place]) [place] on 12-01-2024 RBC (Bld) [#/Vol] 4.36 10 6/uL 4.20-5.40 [facility] Serum or plasma albumin/glob ulin mass ratioOrdered By: Elizabeth Osborne ([place]) on 12-01-2024 Albumin/Globulin [Mass ratio] 0.9 {ratio} [facility] Serum or plasma anion gap de terminationOrdered By: Elizabeth Osborne ([place]) on 12-01-2024 Anion gap [Moles/Vol] 11.2 mmol/L [facility] Basophils Auto (Bld) [#/Vol] Ordered By: Chris Dickerson on 11-30-2024 Basophils (Bld) [#/Vol] 0.0 10 3/uL 0.0-0.1 [facility] Basophils/100 WBC Auto (Bld) Ordered By: Chris Dickerson on 11-30-2024 Basophils/100 WBC (Bld) 0.2 % 0.2-2.0 [facility] Eosinophils/100 WBC Auto (Bl d)Ordered By: Chris Dickerson on 11-30-2024 Eosinophils/100 WBC (Bld) 1.7 % 0.9-7.0 [facility] Erythrocyte distribution wid th Auto (RBC) [Ratio]Ordered By: Chris Dickerson on 11-30-2024 Erythrocyte distribution width (RBC) [Ratio] 14.1 % 11.0-15.0 [facility] Globulin Calc (S) [Mass/Vol] Ordered By: Chris Dickerson on 11-30-2024 Globulin (S) [Mass/Vol] 3.3 g/dL [facility] Glomerular filtration rate ( GFR) estimation in non- AmericanOrdered By: Chris Dickerson on 11-30-2024 GFR/1.73 sq M.predicted among non-blacks MDRD (S/P/Bld) [Vol rate/Area] mL/min/{1.73_m2} >=60 mL/min/1.73m 2 [facility] Hematocrit Auto (Bld) [Volum e fraction]Ordered By: Chris Dickerson on 11-30-2024 Hematocrit (Bld) [Volume fraction] 36.2 % 36.0-48.0 [facility] Hemoglobin [Mass/volume] in BloodOrdered By: Chris Dickerson on 11-30-2024 Hemoglobin (Bld) [Mass/Vol] 12.6 g/dL 12.0-16.0 [facility] Laboratory - Chemistry and C hemistry - challengeOrdered By: Chris Dickerson on 11-30-2024 Bilirubin Ql (U) Negative NEGATIVE [facility] Glucose (U) [Mass/Vol] [facility] Ketones Ql (U) Negative NEGATIVE [facility] pH (U) 6.0 [pH] 5.0-9.0 [facility] Specific gravity (U) [Rel density] 1.015 1.005-1.025 [facility] Urobilinogen Qn (U) 1.0 {Fabián'U}/dL 0.2-1.0 [facility] Albumin [Mass/Vol] 3.1 g/dL Low 3.4-5.0 [facility] ALP [Catalytic activity/Vol] 47 U/L 46-116 [facility] ALT [Catalytic activity/Vol] 20 U/L 14-59 [facility] AST [Catalytic activity/Vol] 12 U/L Low 15-37 [facility] Bilirubin [Mass/Vol] 0.3 mg/dL 0.2-1.0 [facility] Bilirubin.direct [Mass/Vol] 0.1 mg/dL 0.0-0.2 [facility] Calcium [Mass/Vol] 8.8 mg/dL 8.5-10.1 [facility] Chloride [Moles/Vol] 108 mmol/L High 98-107 [facility] CO2 [Moles/Vol] 26.0 mmol/L 21.0-32.0 [facility] Creatinine [Mass/Vol] 0.32 mg/dL Low 0.55-1.02 [facility] GFR/1.73 sq M.predicted MDRD (S/P/Bld) [Vol rate/Area] mL/min/{1.73_m2} >=60 mL/min/1.73m 2 [facility] Glucose [Mass/Vol] 74 mg/dL 74-106 [facility] Potassium [Moles/Vol] 4.1 mmol/L 3.5-5.1 [facility] Protein [Mass/Vol] 6.4 g/dL 6.4-8.2 [facility] Sodium [Moles/Vol] 142 mmol/L 136-145 [facility] Urate [Mass/Vol] 3.0 mg/dL 2.6-6.0 [facility] Urea nitrogen [Mass/Vol] 7.0 mg/dL 7.0-18.0 [facility] Urea nitrogen/Creatinine [Mass ratio] 21.9 mg/mg [facility] Laboratory - Hematology and Cell countsOrdered By: Chris Dickerson on 11-30-2024 Immature granulocytes/100 WBC (Bld) 0.7 % High 0.0-0.5 [facility] Laboratory - Specimen inform ationOrdered By: Chris Dickerson on 11-30-2024 Appearance (U) CLEAR CLEAR [facility] Color (U) LT. YELLOW YELLOW [facility] Laboratory - UrinalysisOrder ed By: Chris Dickerson on 11-30-2024 Leukocyte esterase Test strip Ql (U) SMALL Abnormal NEGATIVE [facility] Mucus Ql (Urine sed) TRACE Abnormal NONE SEEN [facility] Nitrite Ql (U) Negative NEGATIVE [facility] Protein Ql (U) Negative NEG/TRACE [facility] Leukocytes [#/volume] correc terry for nucleated erythrocytes in Blood by Automated counOrdered By: Chris Dickerson on 11-30-2024 WBC corrected for nucl RBC Auto (Bld) [#/Vol] 8.7 10 3/uL 4.0-11.0 [facility] Lymphocytes Auto (Bld) [#/Vo l]Ordered By: Chris Dickerson on 11-30-2024 Lymphocytes (Bld) [#/Vol] 2.0 10 3/uL 1.2-3.8 [facility] Lymphocytes/100 WBC Auto (Bl d)Ordered By: Chris Dickerson on 11-30-2024 Lymphocytes/100 WBC (Bld) 22.9 % 20.5-60.0 [facility] MCH Auto (RBC) [Entitic mass ]Ordered By: Chris Dickerson on 11-30-2024 MCH (RBC) [Entitic mass] 30.0 pg 26.7-34.0 [facility] MCHC Auto (RBC) [Mass/Vol]Or dered By: Chris Dickerson on 11-30-2024 MCHC (RBC) [Mass/Vol] 34.8 g/dL 29.9-35.2 [facility] MCV Auto (RBC) [Entitic vol] Ordered By: Chris Dickerson on 11-30-2024 MCV (RBC) [Entitic vol] 86.2 fL 81.0-99.0 [facility] Monocytes Auto (Bld) [#/Vol] Ordered By: Chris Dickerson on 11-30-2024 Monocytes (Bld) [#/Vol] 0.6 10 3/uL 0.3-0.8 [facility] Monocytes/100 WBC Auto (Bld) Ordered By: Chris Dickerson on 11-30-2024 Monocytes/100 WBC (Bld) 7.2 % 1.7-12.0 [facility] Neutrophils Auto (Bld) [#/Vo l]Ordered By: Chris Dickerson on 11-30-2024 Neutrophils (Bld) [#/Vol] 5.9 10 3/uL 1.4-6.5 [facility] Neutrophils/100 WBC Auto (Bl d)Ordered By: Chris Dickerson on 11-30-2024 Neutrophils/100 WBC (Bld) 67.3 % 43.0-75.0 [facility] No Panel InformationOrdered By: Chris Dickerson on 11-30-2024 Urine Bacteria MODERATE #/HPF Abnormal NONE SEEN [facility] Urine Culture Reflexed YES-[facility] Urine Occult Blood Negative NEGATIVE [facility] Urine Other Casts NONE SEEN #/LPF NONE SEEN [facility] Urine Other Crystals None Seen #/HPF None Seen [facility] Urine RBC 0-2 #/HPF 0-2 [facility] Urine Squamous Epithelial Cells FEW #/LPF Abnormal NONE/RARE [facility] Urine WBC 0-2 #/HPF Abnormal NONE SEEN [facility] Eosinophils # (Auto) 0.2 10 3/uL 0.0-0.7 [facility] Immature Granulocyte # (Auto) 0.06 10 3/uL High 0.00-0.03 [facility] Platelet mean volume Auto (B ld) [Entitic vol]Ordered By: Chris Dickerson on 11-30-2024 Platelet mean volume (Bld) [Entitic vol] 8.7 fL Low 9.5-13.5 [facility] Platelets Auto (Bld) [#/Vol] Ordered By: Chris Dickerson on 11-30-2024 Platelets (Bld) [#/Vol] 185 10 3/uL 150-450 [facility] RBC Auto (Bld) [#/Vol]Ordere d By: Chris Dickerson on 11-30-2024 RBC (Bld) [#/Vol] 4.20 10 6/uL 4.20-5.40 [facility] Serum or plasma albumin/glob ulin mass ratioOrdered By: Chris Dickerson on 11-30-2024 Albumin/Globulin [Mass ratio] 0.9 {ratio} [facility] Serum or plasma anion gap de terminationOrdered By: Chris Dickerson on 11-30-2024 Anion gap [Moles/Vol] 12.1 mmol/L [facility] Urine Cultureon 11-30-2024 Bacteria identified Cx Nom (U) 50,000 colonies/ml mixed bacterial skin contaminants 2 Days PERFORMED BY: [place] [address] PATHOLOGIST TELECASTING ENGINEER DAMIÁN Burgos [facility] Comment on above: Performed By: #### C UU #### [address] RECURRENT VAGINITIS (HTRX)on 11-21-2024 ATOPOBIUM VAGINAE 0 [facility] ATOPOBIUM VAGINAE Not detected [facility] BVAB 2,3 (BACTERIAL VAGINOSIS ASSOCIATED BACTERIA 2, 3); MOBILUNCUS SPP 0 [facility] BVAB 2,3 (BACTERIAL VAGINOSIS ASSOCIATED BACTERIA 2, 3); MOBILUNCUS SPP Not detected [facility] GLORIA ALBICANS, PARAPSILOSIS, TROPICALIS 0 [facility] GLORIA ALBICANS, PARAPSILOSIS, TROPICALIS Not detected [facility] GLORIA GLABRATA 0 [facility] GLORIA [...] HORMONEon 0 11-20-2024 TSH Qn 1.702 m[IU]/L [facility] Alpha-fetoprotein (AFP) kelly urement ([id number])Ordered By: Les Martinez on 11-20-2024 AFP [MoM] 0.87 . [facility] Assess gestational ageOrdere d By: Les Martinez on 11-20-2024 Gestational age 18.0 weeks . [facility] Estimation of maternal age-s pecific risk of Down syndrome birthOrdered By: Les Martinez on 11-20-2024 [age] [Time] 30[age]1 yr . [facility] Insulin dependent diabetes m ellitus detectionOrdered By: Les Martinez on 11-20-2024 Insulin dependent diabetes mellitus Ql No . [facility] Interpretation of serum or p lasma second trimester quad maternal screen (narrative reOrdered By: Les Martinez on 11-20-2024 Second trimester quad maternal screen Gonzales [Interp] Comment . [facility] Comment on above: Interpretation: Scre en NegativeThis [...] quad maternal screen Gonzales [Interp] Negative . [facility] Laboratory - Chemistry and C hemistry - challengeOrdered By: Les Martinez on 11-20-2024 TSH Qn 1.702 m[IU]/L 0.358-3.740 [facility] No Panel InformationOrdered By: Les Martinez on 11-20-2024 AFP Triple Screen Comment Comment . [facility] Comment on above: Gisel Gandhi , Ph.D., DABCCDirectorReferences: Available Upon Request.Multiples Of Median Cutoffs For AFP ElevationsSingleton 2.5 Black 2.8IDD 2.0 Twins 4.5 Abbreviation DefinitionsIDD - Insulin Dep DiabetesOSBR - Open Spina Bifida RiskFor further inquiries contact [employer] at [phone].This test was developed and its performance characteristicsdetermined by [employer]. It has not been cleared or approvedby the Food and Drug Administration.Performed at: [facility] [employer] NAX[address] [place], [place] [id number] Director: Lorena Ellis [facility], Phone: [phone] Alpha Fetoprotein Results Received Report . [facility] Gestational Age Calculation Method Ultrasound . [facility] Comment on above: 18.0 on 11/20/2024Re calculations are not recommended when gestational datingby LMP and ultrasound are within 10 days. Maternal Quad Test Risk 68969 . [facility] Maternal Race Other . [facility] Multiple No . [facility] Serum or plasma [id number]-[id number] protein measurement (mass/volume)Ordered By: Les Martinez on 11-20-2024 AFP [Mass/Vol] 27.6 ng/mL . [facility] Urinalysis macro (dipstick) panel (U)on 11-20-2024 Bilirubin, UA Negative Negative - 4(70) +++ mg/dL [facility] Healthcare Blood, UA Negative Negative - 50 Yehuda/mcL [facility] Clarity, UA Clear [facility] Color, UA Yellow [facility] Glucose, UA Negative Negative - 2000(110) ++++ mg/dL [facility] Interpretation and review of laboratory results Abnormal [facility] Ketones, UA Negative Negative - 160(16) ++++ mg/dL [facility] Healthcare Leukocytes, UA 2+ Negative - 500+++ Kourtney/mcL [facility] Nitrite, UA Negative Negative - Positive [facility] pH, UA 8 5 - 9 [facility] Protein, UA Negative Negative - 2000(20) ++++ mg/dL [facility] Spec Grav, UA 1.01 1 - 1.03 [facility] Urobilinogen, UA 1.0 0.2 - 12 mg/dL [facility] Laboratory - Chemistry and C hemistry - challengeOrdered By: Chris Dickerson on 11-17-2024 Bilirubin Ql (U) Negative NEGATIVE [facility] Glucose (U) [Mass/Vol] Negative NEGATIVE [facility] Ketones Ql (U) Negative NEGATIVE [facility] pH (U) 7.5 [pH] 5.0-9.0 [facility] Specific gravity (U) [Rel density] 1.010 1.005-1.025 [facility] Urobilinogen Qn (U) 1.0 {Fabián'U}/dL 0.2-1.0 [facility] Laboratory - Specimen inform ationOrdered By: Chris Dickerson on 11-17-2024 Appearance (U) CLEAR CLEAR [facility] Color (U) LT. YELLOW YELLOW [facility] Laboratory - UrinalysisOrder ed By: Chris Dickerson on 11-17-2024 Leukocyte esterase Test strip Ql (U) Negative NEGATIVE [facility] Mucus Ql (Urine sed) NONE SEEN NONE SEEN [facility] Nitrite Ql (U) Negative NEGATIVE [facility] Protein Ql (U) Negative NEG/TRACE [facility] No Panel InformationOrdered By: Chris Dickerson on 11-17-2024 Urine Bacteria TRACE #/HPF Abnormal NONE SEEN [facility] Urine Culture Reflexed NO [facility] Urine Occult Blood Negative NEGATIVE [facility] Urine Other Casts NONE SEEN #/LPF NONE SEEN [facility] Urine Other Crystals None Seen #/HPF None Seen [facility] Urine RBC NONE SEEN #/HPF 0-2 [facility] Urine Squamous Epithelial Cells RARE #/LPF NONE/RARE [facility] Urine WBC NONE SEEN #/HPF NONE SEEN [facility] Ultrasound - Officeon 2024 Radiology Study observation (narrative) [facility] Urinalysis macro (dipstick) panel (U)on 10-22-2024 Bilirubin, UA Negative Negative - 4(70) +++ mg/dL [facility] Blood, UA Negative Negative - 50 Yehuda/mcL [facility] Clarity, UA Clear [facility] Color, UA Yellow [facility] Glucose, UA Negative Negative - 1999(110) ++++ mg/dL [facility] Interpretation and review of laboratory results Normal [facility] Ketones, UA Negative Negative - 160(16) ++++ mg/dL [facility] Leukocytes, UA Negative Negative - 500+++ Kourtney/mcL [facility] Nitrite, UA Negative Negative - Positive [facility] pH, UA 7 5 - 9 [facility] Protein, UA Negative Negative - 2000(20) ++++ mg/dL [facility] Spec Grav, UA 1.01 1 - 1.03 [facility] Urobilinogen, UA 1.0 0.2 - 12 mg/dL [facility] Appearance of UrineOrdered B y: Kassidy Arriaza on 10-18-2024 Appearance (U) Clear Normal Clear [facility] Comment on above: Order Comment: Name Collection Type:: Clean-Voided Midstream Performed By: #### U A, CUU #### [facility] [address] Bilirubin Test strip Ql (U)O rdered By: Kassidy Arriaza on 10-18-2024 Bilirubin Ql (U) Negative Negative [facility] Chlamydia/GC Amplificationon 10-18-2024 Chlamydia Trachomotis, AC Negative Normal Negative [facility] Comment on above: Order Comment: SOURC E OF SPECIMEN: Genital Performed By: #### G CCHLAMAMP #### [facility] , #### CUGEN #### [facility] [address] Neisseria Gonorrhoeae, AC Negative Normal Negative [facility] Comment on above: Order Comment: SOURC E OF SPECIMEN: Genital Result Comment: Perf ormed at: =G - [facility] [address] [id number] Strip Cutting Machine Operator: Dagmar Love MD, Phone: [phone] PERFORMED BY: [place] [address] PATHOLOGIST TELECASTING ENGINEER DAMIÁN DOSHI M.D. Performed By: #### G CCHLAMAMP #### [facility] , #### CUGEN #### [facility] [address] [place] [address] Color of Urine by AutoOrdere d By: Kassidy Arriaza on 10-18-2024 Color (U) Colorless Normal Yellow [facility] Comment on above: Order Comment: Name Collection Type:: Clean-Voided Midstream Performed By: #### U A, CUU #### [address] Genital Cultureon 10-18-2024 Genital Culture Genital Results Light Normal Urogenital Damián 2 Days No More GC Specimen not tested for Neisseria gonorrheae PERFORMED BY: [place] [address] PATHOLOGIST TELECASTING ENGINEER DAMIÁN DOSHI M.D. Normal [facility] Comment on above: Performed By: #### G CCHLAMAMP #### [facility] , #### CUGEN #### [address] Genital specimen bacteria id entification by aerobic cultureOrdered By: Kassidy Arriaza on 10-18-2024 Bacteria identified Aer cx Nom (Genital specimen) [facility] Glucose [Mass/volume] in Uri ne by Test stripOrdered By: Kassidy Arriaza on 10-18-2024 Glucose Test strip (U) [Mass/Vol] Normal mg/dL Normal [facility] Hemoglobin Test strip Ql (U) Ordered By: Kassidy Arriaza on 10-18-2024 Hemoglobin Ql (U) Negative Negative [facility] Ketones [Presence] in Urine by Test stripOrdered By: Kassidy Arriaza on 10-18-2024 Ketones Ql (U) Trace Normal Negative [facility] Comment on above: Order Comment: Name Collection Type:: Clean-Voided Midstream Performed By: #### U A, CUU #### [facility] [address] Laboratory - Microbiology an d Antimicrobial susceptibilityOrdered By: Kassidy Arriaza on 10-18-2024 C. trachomatis DNA AC+probe Ql (Unsp spec) Negative Negative [facility] N. gonorrhoeae DNA AC+probe Ql (Unsp spec) Negative Negative [facility] Comment on above: Performed at: [address] [id number] Director: Dagmar Love MD, Phone: [phone] Leukocyte esterase [Presence ] in Urine by Test stripOrdered By: Kassidy Arriaza on 10-18-2024 Leukocyte esterase Test strip Ql (U) Negative Normal Negative [facility] Comment on above: Order Comment: Name Collection Type:: Clean-Voided Midstream Performed By: #### U A, CUU #### [facility] [address] [place] [address] Nitrite Test strip Ql (U)Ord ered By: Kassidy Arriaza on 10-18-2024 Nitrite Ql (U) Negative Negative [facility] Protein Test strip (U) [Mass /Vol]Ordered By: Kassidy Arriaza on 10-18-2024 Protein (U) [Mass/Vol] Negative Negative [facility] Specific gravity Test strip (U) [Rel density]Ordered By: Kassidy Arriaza on 10-18-2024 Specific gravity (U) [Rel density] 1.007 1.001-1.030 [facility] US OB <= 14 weeks fetuson US OB <= 14 weeks fetus [facility] Main [place] [id number] Ultrasound Report Signed Patient: Jaz Sanders MR#: [id number] : 1995 Acct:[id number] Age/Sex: 29 / F ADM Date: 10/18/24 Loc: ER Room: Type: [facility] ER Attending Dr: Ordering Provider: Kassidy Arriaza DO Date of Service: 10/18/24 US/US OB <= 14 weeks fetus: OB/Uterine Contractions Copies to: Kassidy M Brown, DO OB ultrasound. Reason for exam:1 episode [...] seen. Impression dictated by: Sravan Dickinson Jr., Ari.ORenae 10/18/2024 2:21 PM Dictation Location: [place] [address] Tech: Natalie Haji Transcribed By: MAITE 10/18/24 1421 Dictated By: Sravan Dickinson Jr, DO 10/18/24 1419 Signed By: 10/18/24 1421 Normal [facility] Unlisted Lab Teston 10-19-19 [facility] Urinalysison 10-18-2024 Bilirubin,Urine Negative Normal Negative [facility] Comment on above: Order Comment: Name Collection Type:: Clean-Voided Midstream Performed By: #### U A, CUU #### [address] Glucose Ql (U) Normal Normal Normal [facility] Comment on above: Order Comment: Name Collection Type:: Clean-Voided Midstream Performed By: #### U A, CUU #### [facility] [address] [place] [address] [place] Nitrite,Urine Negative Normal Negative [facility] Comment on above: Order Comment: Name Collection Type:: Clean-Voided Midstream Performed By: #### U A, CUU #### [facility] [address] [place] [id number] [place] Occult Blood,Urine Negative Normal Negative [facility] Comment on above: Order Comment: Name Collection Type:: Clean-Voided Midstream Result Comment: PERF ORMED BY: [place] [address] PATHOLOGIST TELECASTING ENGINEER DAMIÁN DOSHI M.D. Performed By: #### U A, CUU #### [address] Protein,Urine Negative Normal Negative [facility] Comment on above: Order Comment: Name Collection Type:: Clean-Voided Midstream Performed By: #### U A, CUU #### [address] Specificy [place],Urine 1.007 Normal 1.001-1.030 [facility] Comment on above: Order Comment: Name Collection Type:: Clean-Voided Midstream Performed By: #### U A, CUU #### [address] Urobilinogen,Urine Normal Normal Normal [facility] Comment on above: Order Comment: Name Collection Type:: Clean-Voided Midstream Performed By: #### U A, CUU #### [address] Urine Cultureon 10-18-2024 Bacteria identified Cx Nom (U) <9,000 colonies/ml mixed bacterial skin contaminants 2 Days PERFORMED BY: [place] [address] PATHOLOGIST TELECASTING ENGINEER DAMIÁN DOSHI M.D. Normal [facility] Comment on above: Performed By: #### U A, CUU #### [address] Urine cultureOrdered By: Jemima Arriaza on 10-18-2024 Bacteria identified Cx Nom (U) 2 Days [facility] Urobilinogen Test strip (U) [Mass/Vol]Ordered By: Kassidy Arriaza on 10-18-2024 Urobilinogen (U) [Mass/Vol] Normal mg/dL Normal [facility] pH of Urine by Test stripOrd ered By: Kassidy Arriaza on 10-18-2024 pH (U) 7.0 [pH] Normal 5.0-9.0 [facility] Comment on above: Order Comment: Name Collection Type:: Clean-Voided Midstream Performed By: #### U ABA AgustinU #### [facility] [address] Unlisted Lab Teston 10-17-19 [facility] [employer] BOX TESTon 10-10-2024 BOX TEST SENT OUT [facility] [address] [facility] [address] 10-10-24 [facility] Coding Summaryon 10-02-2024 Coding Summary HTMLBase 64 RmuirziqUYo0tNl+PGhlYWQ +IO5FUXTuX77aaILxhO7pY7 NMTElOSywgQVBQTElOSyIgb mBvUO7stLEkQMTs IC8+EH0lIODkCvtpaCBab5T 9hMM1S22cst9mYCwoiVN9OZ HfItHxtwlop5zclHm2NSqdQ mluOyBt JCBjvR85PQJ3sX82Jq42aUP spNHci6fgwAo5NiIeTZMrSG Q4ySzpRHxqz4WoEZLmG77cw QEge1P9 PARzmPirnKGbHhMitJN7sT7 hEZvuoewrl6jrnvpmThx0uo 48tXXdh3T6cTE3S5DeuyU5M GJvbGQg EuwmiONBtB1ondofj7ntofy zHgIgFPApLHa9ZBf3KBJudU bzWvGvZB48LZK5TPAyptTnS 2FsLWFs xIotJxU9v6U4Cp1QZ2JDFxb nN2RFSLUARMpatYP+PC90cj 69A7NrOsqmBfw4SQTjACU6g PA8uQ4f VQIiDVwxi7G5mPX8Y2LlcfT mqe8nl2rxWDRlNGgkK41goR Pyl9F5UBAdfHD6ENXayQpxI iBzaG93 Oyc+TJDgqRntk8TmWtqbh5b fa8dkoTc4TcwwBWDbinGiuW taBXS0l7JrPk2sXZFapDU3p EW1bL1q XbHqJhT4HZruA611DiXbaEU dRhtsV79lD4VbrJO+PHRyPj v4LDSwhPgdDQ8xG2NhKWKhn mctbGVm aLvkNL5iEPThiehvQFJfcI4 yQHMvX2o6ZyNsRmJ0DZwoZ7 GnAAHmhoeqJa81uR3ePqWqW yZ5RCow J7FdyoW3WCJenQUfBThxCBC 0K43vp1N2DCDfXETxMTU1bS O2uF3atOjhxlothYKhnKsxj mVydGlj EEbgTCrlV800DEQgpHiwZdT vZGluZyBEYXRlOiAgMDYvMT cvMjAyNTwvdGQ+ZJQmNVX5x WxlPSAn yNViBVxbFt8afJsnbZwbYU7 zEXNydmfuMZYpxY9oRTFzdH LccYqpAW9bGZVlhhtcg053D iAxMHB0 YUKzmVZpY5ZnaI9jZeLbDLU hNFWxU2QlzHLbCNebU624JJ wsQlU8YOLezzOfZ7HgTBSce WduOiB0 c3C2By0Fn0YuxfpkB7KsgTS tBbTvBoucCRz2C6DwTsvzkO I+QF86ETFsLB48IOb4CXD6j WxlPSdi GKPhY2AcuZ1zRmKtGXMsNMM kOyc+PHRhYmxlIHdpZHRoPS hfQXOkLoGgfNprBD0lTk9dT GVyLWNv xEgeyOKnJiLwa2qrKLTkNLw jJV3qyYveE6HqzLW7HJNvq0 u2Yh26H77rV3CcdLM+PGNvb ZJ0sKK8 zZ3sPiEiDvI7YOgeY263UxQ yhBTdXujlh3vrv3inkSl2Dc E3MBXwgmQztEtcSIG5c1UxY o48D06a IHdpZHRoPSIxNSUiIHZhbGl qoo8bsW9zBa0+CHFlzVB6rB T0qQ4cAzBqEzG1VUobT083F nRvcCIv Ubekh1cav7sfjNs1XqXrWFB jrhQsjGbpAPR3k6AyWx12T1 EzkLssh6VwRpl0uh03nTJxd 8R6uAZ5 U2HbGZHczngukIOaeChzYU0 rTMJxjvdyBCXzlE7qQVPuE5 l4HgUcYjW0IIqkY3HtpoO8S GJvbGQg YCIgzOJRyM1hjgdha1hsezp hOaKoHHLdKKc7IGq1EHUxxI huCqElDWS2ObG4YMN0cUGqa I0bfIqi rdlaiR4zYzo+GOM7tEGplWY JAX9aUmfvfND+VRTsZAW3gR uaAPqmXBRawN5eSIReI5b0F iAwLjA1 GXdkH8GykbJ5EHFudIDkEMU fsRSIsK9bpzwqx4kquapkBh HvJBBzVTi2FDg3ZQWxwUplZ iBsZWZ0 RgU1JPD8hGMajV1njKngglj btY4kBut+ZmyspKsdNPK1ZY c0V7VeUsd4NIHmiYofDO4dg GFkZGlu Tm8wkBtnxTpeQV8fDYLztrl qp816PiMmq3klVSIvlEJrLS orEZG2H81az8P9BWFrWSWbJ FN0iDC0 tG9aoXsnwsbrgXDgiRtdfrZ oxNjuXTjcYBmkQ361GLNyuQ zbLsHmLOp0M5YyUta1ZQPna HvkOC7v fJXvRVoiBm5ppGtxcYiuTN6 wINKqpemwy314IuSvx1amTM BzuIUlGEalUTB7X66lv7I7J CMwMDAw WYW1fLA0eS1jsKcpmxwiyBB mdDsgdmVydGljYWwtYWxpZ2 78VMWigUivSpFwrUo7O2OeJ ij3BMRk ySarPA8drXAxSPinFq5leMd shRybPF7qCWAbrwbxn825Et Cfq9qrRGFoyRWvNUrbUMY7C 86gc4Y2 IHOtJCXtXKQ0pPM8fF1obBf nbjogbGVmdDsgdmVydGljYW qjIYpkM871QWAkzNrtLnMqp GllbnQg BRmeGBi7V6BjAppgzRH+PC9 2YRCeXS77iLCorBVfp0okaN t9YcXnVXWaYPV5mTwxBEvhq 3JkZXIt D83zqUPse1I6PLYlmWdgkEV vDdAanAV4rS8mQFbapofhu9 ztcdiyRsfqx1ghzn32tF05K 29sIHdp ZHRoPSIzMCUiIHZhbGlnbj0 myX8gVs1+ZNBxoMK7vBR3pX 1lNOJtXcP2NLamL642LjGzu CIvPjxj p8guo7ouvCn1PcD6DWMeofC asLjpQCC4u2NzSj20F24dHS dpZHRoPSIyMCUiIHZhbGlnb w9rxB9x Ii8+MXZduUD0pCK5yT2mHjW vOvD6YJboV170VlYjaJDmLk euA34wX9BdnRO+OJLlYzv6O CBzdHls AN5dbLPuRDraPk3eWBI1GwU sZzSdLXyvF9EtIYUsaqnjiu satYL0BUQvVSObyP77Pe2vg DogMTBw eKPDtJ8qkdqvp7cxjilbZpE gBEPvBEc8OTs8OUQilSlqGx FoTAB2DyE9RXT1zXKajY3oo Glnbjog sV4mR0QfIMRpstgrXe66rC3 bGbXwHnW1PIsfIdu+TUNDQU 5OLCBIRUFUSEVSIEVMSVpBQ kVUSDwv dGQ+DJZkTMP3mOfbGGvzQSM anS8sRUSoU9p2DzFlRhK0DO jwW6JgPNRtpthePn09aZ1oR iAwLjA1 DAeqG1UokwA5ELHkhTEhUJl tLYN6X78iz2S5DGQhJFXyTD D8nBT2uU1zuWkxhbepqUBdm DsgdmVy vVqoRUuwEWwjJ284NFIkhMs nTaCfNcR3GqO3OTE8N3SfWw x1OVWwwJaxSH9xfXCgTBmeZ v2qjDyg iRrbQL5nMPBcrvceHOUfxP5 qAPFygAYmrKiwYO5dTAYmhz pjr717LbRtLNL0LDCtjDFsV 1WmjG1e CpKnWKWlYOWpT2DgmOByCDy kZ055AGzlIcY9OQRvgfGwT1 EjYEFqhGkcMmO4l5U1Py6zQ SBZZWFy czwvdGQ+EFHoYVS6jTaiFZj vPKIloK2xEJOuG3j6OaPpUk L1STutL6LlRIAandwwHo39t S9cCwYf PwH4KMutF4EcpiW7MZHomMA dRJsaFRH9J25ti5L1WHYyTF MvNDP8qQQ2yR5lhLtlyhccs GVmdDsg dgFclIuxQJrbWFznF065LXI vcDsnPkZFTUFMRTwvdGQ+PH IwUYJ2oVmyYAytHVGabA7bT EPtF7k8 YjToQeI2MNegS6RoKQUdxiv xUy97uI3tJmSeSbP1NAsqF5 KyxuG6RXAyqCXvFDtbDPB9F 83uw1M0 YEOrTFVxSGS3nSX5xX2wkQg nbjogbGVmdDsgdmVydGljYW xvMNgoP893USNbvZkcCg5CN C37KT06 G6LyRqeikSAuiQD+PHRhYmx lIHdpZHRoPScxMDAlJyBzdH skCC8xFn4vWVMxTHIqzJllo HNlOiBj z4kzHOAeVPtsUU9ddGfsP1C drLW5DCAij3x2Bl75Q37iY4 JvdXA+XULcbFF6uLN9cO8nB zAlIiB2 HSldZ718TwFrrVNtXolpn5j ol4zknGj4KhQtCCEcwbPmaH lxNGH8w5BoKo09L16pVFvvR HRoPSIy NCHhKPUdsGtvsm7ryJ3jEi7 +SLJlcSD6kCF3zN6uGyPpZr W7FLkcU809VsTxxBQvNsmcG 88pM6Tb dXA+SNVxCwk1VGCeiMhrIZ6 faGFkKBwyVv2bZLD4PsCmOy CeIAsaY3XaWMGsobeqtzkzb YP2TSTv LOWlaR87Yh2jjPkqQu1jEOO kHUD4VVKjnGSuO2LxvR6aQx OtVTXzFITpF4PwgALwUEhaO 246IGxl DpP4JHVexjZkZ7LaMZRamRj mBcZ7i4X5Sl5IxCilrEToAV 0mIeDcPKh5H1TzXun7VSCmt ZtzYF1n eWXwLPmvSn1aoHrsgWgbND6 bUGLnkdjcv114NcRbs8ijII WauXBxTOopEGG2D13te5F4K CMwMDAw STY9qUN6mM7wyQnkhqguvHQ mdDsgdmVydGljYWwtYWxpZ2 53SFGenBmdZlXROmf5K4NwS kx4TBJu hXcaKS1laIMvYPmwGx4swTa soJpfID1mUJEwewcxa770Qc Duo4ifMZTxrSGrECegUAV6K 80kk4L1 LQYxEBHjMRS9nFK1vK4duLp nbjogbGVmdDsgdmVydGljYW glIIvkI663NOJmsRfkIc9CQ bz7N4Kl Jcp0IKEwkSwgJS4deHUmXNs dWq3ldIybgDwrRV3bEVZtfk sky650FhBnm3rvYVSvlTNmP GltZXM7 G29bi3Z9SGAgNEFoHHR7dOH 1vZ3peKvkxlkxcDFikCcjmv VksKkdTQckBParB007UBJml DsnPlBh eWVyOjwvdGQ+QU97ar77U8K tNdhiSux9TZHnNJX3sGZ8nQ 5zAEVlZHzlm3S0cTT6J8Oji eVufd4j b2x (more content not included)... Normal [facility] Compliance Drug Analysis, Ur LCon 10-02-2024 Summary LC FINAL Invalid Interpretation Code [facility] Comment on above: Result Comment: ===== TOXASSURE [...] test is not intended to distinguish between rcfsw-8-pfpnacvdpgkhgxrocnvg, the predominant form of THC in most herbal or marijuana-based products, and gnoon-2-jsblyicpjrurlykmzlri. Lamotrigine PRESENT Acetaminophen PRESENT ===== Test Result Flag Units Ref Range Creatinine 45 mg/dL >=20 ===== Declared Medications: Medication list was not provided. ===== For clinical consultation, please call . ===== ToxAssure, ToxAssure FLEX or MAT drug testin -Technical component - Data analysis performed at [facility] [place], [address] [place] [address]. [phone]. Strip Cutting Machine Operator César Bains MD. ToxAssure, ToxAssure FLEX or MAT drug testing: -Technical component - Result certification performed at [facility] [place], [address], [place] [address]. [phone] Strip Cutting Machine Operator César Bains MD. Performed At: [employer] [address] [place] [id number] Brendon Tsang Ph:[phone] Performed By: #### 1 [id number] ####[facility] ([facility])[address] [place] [address] Urineon 09-28-2024 C Urine Mixed skin, or urogenital damián. Clinically insignificant Normal [facility] Comment on above: Performed By: #### 6 [id number] ####[facility] (DEFAULT)[address] [place] [address] HBsAg Screen LCon 09-27-2024 HBsAg Screen LC Negative Invalid Interpretation Code Negative [facility] Comment on above: Result Comment: Perf ormed At: [address] [id number] J Luis Gray PhD Ph:[phone] Performed By: #### 1 [id number], 6710777, 3920544, 38291376, [id number], [id number], [id number], [id number] ####[facility] (DEFAULT)[address] [place] [address]181 HIV 4th Gen Screen w Reflex LCon 09-27-2024 HIV Scr 4th Gen LC Non-Reactive Invalid Interpretation Code Non Reactive [facility] Comment on above: Result Comment: HIV- 1/HIV-2 antibodies and HIV-1 p24 antigen were NOT detected. There is no laboratory evidence of HIV infection. HIV Negative Performed At: [address] [id number] J Luis Gray PhD Ph:[phone] Performed By: #### 1 [id number] #### [facility] (DEFAULT) [address] [place] [address] RPR, Rfx Qn RPR/Confirm TP L Con 09-27-2024 RPR LC Non-Reactive Invalid Interpretation Code Non Reactive [facility] Comment on above: Performed By: #### 1 [id number], 3864408, 6734121, 76521218, [id number], 52471601, [id number], [id number] ####[facility] (DEFAULT)[address] [place] [address]346 Rubella Antibodies, IgG LCon 09-27-2024 Rubella Antibodies, IgG LC 2.78 index Invalid Interpretation Code Immune >0.99 [facility] Comment on above: Result Comment: Non- immune <0.90 Equivocal 0.90 - 0.99 Immune >0.99 Performed At: [facility] [id number] J Luis Gray PhD Ph:[phone] Performed By: #### 1 1858173, 9836975, 7090719, 92693297, [id number], 66698658, 2779426454, [id number] ####[facility] (DEFAULT)[address] [place] [address] .Auto Diff 09-26-2024 Auto Lagrange % 6 % Normal 12 [facility] Comment on above: Performed By: #### 1 3579102, 2097609, 4452248, 19001445, 8733337875, 28411286, 9264536340, 78698588 ####[facility] (DEFAULT)[address] [place] [address] Baso Abs# 0.0 x10 Normal 0.0-0.2 [facility] Comment on above: Performed By: #### 1 9750080, 1804666, 8761312, 76936422, 1269377453, 35058908, 9386703456, 87789754 ####[facility] (DEFAULT)[address] [place] [address]3238 Basophils/100 WBC (Bld) 0.1 % Low 0.2-2.0 [facility] Comment on above: Performed By: #### 1 4083529, 2512736, 7224003, 08869052, 5507248821, 85198508, 6358493289, 39065245 ####[facility] (DEFAULT)[address] [place] [address] Eos Abs# 0.2 x10 Normal 0.0-0.4 [facility] Comment on above: Performed By: #### 1 1282144, 9393471, 6740662, 99395470, 9498038490, 01514050, 8450611010, 01438813 ####[facility] (DEFAULT)[address] [place] [address] 47310 Eosinophils/100 WBC (Bld) 2.0 % Normal 0.9-4.0 [facility] Comment on above: Performed By: #### 1 8326459, 0063035, 1352984, 41248981, 3657209702, 75408184, 4846668907, 16921409 ####[facility] (DEFAULT)[address] [place] [address] 02027 Lymph Abs# 2.0 x10 Normal 1.3-2.9 [facility] Comment on above: Performed By: #### 1 2609722, 2519800, 3043982, 07273235, 6929038266, 63101946, 2048001512, 95802484 ####[facility] (DEFAULT)[address] [place] [address] 39701 Lymphocytes/100 WBC (Bld) 26 % Normal 14-48 [facility] Comment on above: Performed By: #### 1 4034274, 8994209, 4331369, 57904509, 2726980184, 05223495, 1029236465, 22725174 ####[facility] (DEFAULT)[address] [place] [address] 20845 Lagrange Abs# 0.5 x10 Normal 0.0-0.8 [facility] Comment on above: Performed By: #### 1 6524295, 2455560, 1871383, 65640537, 7256841419, 43786133, 2215172416, 29694957 ####[facility] (DEFAULT)[address] [place] [address] 26250 Neut Abs# 5.1 x10 Normal 1.5-9.2 [facility] Comment on above: Performed By: #### 1 9290730, 1777000, 5601237, 77807535, 9156292545, 45607722, 8288922190, 97080762 ####[facility] (DEFAULT)[address] [place] [address] 71209 Neutrophils/100 WBC (Bld) 66 % Normal 44-88 [facility] Comment on above: Performed By: #### 1 2224151, 6344950, 2224311, 32428836, 8231353807, 03631946, 4878176695, 39061576 ####[facility] (DEFAULT)[address] [place] [address] 31878 ABORhon 09-26-2024 ABO and Rh group Nom (Bld) Hx Check: Not Found Anti-A: 4+ Anti-B: 0 Anti-D: 2+ DCon: NT A1: 0 B: 2+ ABORh Interp: A POS Invalid Interpretation Code [facility] Comment on above: Performed By: #### 1 4499897, 1917693, 3728987, 26897356, 4192666521, 68742365, 5537227909, 37380815 ####[facility] (DEFAULT)[address] [place], [place] [address] ABSC Gelon 09-26-2024 ABSC Gel Negative Normal [facility] Comment on above: Performed By: #### 1 1892589, 9473111, 9398390, 03764121, 4554864158, 94564281, 1916689192, 83532691 ####[facility] (DEFAULT)[address] [place] [address] CBC w/ Auto Diffon Erythrocyte distribution width (RBC) [Ratio] 13.2 % Normal 11.5-15.0 [facility] Comment on above: Performed By: #### 1 4555200, 8216835, 8061803, 87450477, 8552021556, 06528505, 6098883645, 79014175 #### [facility] (DEFAULT) [address] [place] [address] Hematocrit (Bld) [Volume fraction] 39.9 % Normal 33.7-40.4 [facility] Comment on above: Performed By: #### 1 3769430, 7703813, 5202316, 69466003, 9993181569, 20245264, 5766009284, 37366861 #### [facility] (DEFAULT) [address] [place] [address] Hemoglobin (Bld) [Mass/Vol] 13.9 g/dL Normal 11.3-15.9 [facility] Comment on above: Performed By: #### 1 [id number], 6965586, 5399605, 26366540, [id number], 22332399, [id number], 30298474 #### [facility] (DEFAULT) [address] [place] [address] Man Diff? Auto Invalid Interpretation Code [facility] Comment on above: Performed By: #### 1 [id number], 0803017, 6143205, 69426248, [id number], 38900435, 8101264989, 00435274 #### [facility] (DEFAULT) [address] [place] [address] MCH (RBC) [Entitic mass] 29 pg Normal 24-34 [facility] Comment on above: Performed By: #### 1 4678823, 1630569, 3903101, 34038367, [id number], 40807755, [id number], 77426290 #### [facility] (DEFAULT) [address] [place] [address] MCHC (RBC) [Mass/Vol] 35 g/dL Normal 26-37 [facility] Comment on above: Performed By: #### 1 5521734, 8479870, 6902214, 89846574, 1957251507, 37607754, 1597309552, 19808788 #### [facility] (DEFAULT) [address] [place] [address] MCV (RBC) [Entitic vol] 84 fL Normal 81-100 [facility] Comment on above: Performed By: #### 1 3610522, 9746240, 6229288, 15066178, 2158064434, 79430713, 1532586833, 49783988 #### [facility] (DEFAULT) [address] [place] [address] Platelet 210 x10 Normal 138-427 [facility] Comment on above: Performed By: #### 1 3329741, 0726850, 9895186, 05533437, 2671609866, 83985288, 5024629456, 63347250 #### [facility] (DEFAULT) [address] [place] [address] Platelet mean volume (Bld) [Entitic vol] 6.3 fL Normal 6.3-10.2 [facility] Comment on above: Performed By: #### 1 2798852, 5528097, 5398601, 86324929, 3563186319, 76638884, 6951053226, 19872681 #### [facility] (DEFAULT) [address] [place] [address] RBC 4.76 x10 Normal 3.70-5.30 [facility] Comment on above: Performed By: #### 1 9513819, 5494560, 6134788, 99340560, 3221214258, 37561121, 9235297897, 26147658 #### [facility] (DEFAULT) [address] [place] [address] WBC 7.8 x10 Normal 3.5-10.5 [facility] Comment on above: Performed By: #### 1 8867647, 6466209, 5237288, 13688574, 4516327387, 09012629, 2466681004, 06589403 #### [facility] (DEFAULT) [address] [place] [address] HBV surface Ag IA Qlon 09-26 Hepatitis B Surface Antigen Negative [facility] HIV 1+2 Ab+HIV1 p24 Ag IA Ql on 09-26-2024 HIV 1&2 AB/AG Non-Reactive [facility] HgbA1c Standardon 09-26-2024 .Hb 13.1 Invalid Interpretation Code [facility] Comment on above: Performed By: #### 1 6646544, 6304380, 1199016, 18571953, 5798133386, 68946719, 1981785849, 35435375 ####[facility] (DEFAULT)[address] [place] [address] .Hgb A1c 0.38 g/dL Invalid Interpretation Code [facility] Comment on above: Performed By: #### 1 8827302, 2751659, 2059586, 30858507, 9790143764, 51966226, 2620026674, 61858787 ####[facility] (DEFAULT)[address] [place] [address] Glucose [Mass/Vol] 91 mg/dL Invalid Interpretation Code [facility] Comment on above: Performed By: #### 1 4324235, 9455509, 3439860, 78846332, 6741860014, 42497753, 8579293363, 48158674 ####[facility] (DEFAULT)[address] [place] [address] HbA1c (Bld) [Mass fraction] 4.8 % 4.0 - 6.0 % [facility] Comment on above: Performed By: #### 1 6337981, 6223021, 9738384, 49044570, 0647828279, 01659044, 1528394289, 23317681 ####[facility] (DEFAULT)[address] [place] [address] No Panel Informationon 09-26 [facility] Provider Orderson 09-26-2024 Provider Orders [id number] GTIFF Normal [facility] Rubella IGG immune statuson 09-26-2024 Rubella immune IgG 2.78 [facility] T. pallidum IgG+IgM IA Ql (S )on 09-26-2024 Syphilis Non-Reactive [facility] Type and screenon 09-26-2024 Abo/Rh(D) Positive [facility] Ultrasound - Officeon 2024 [facility] HCG ( test) Ql (U)o n 09-20-2024 Interpretation and review of laboratory results Abnormal [facility] Preg Test, Ur Positive Negative [facility] US OB TRANSVAGINALon 025 US OB [...] II, MD, PHD at 21-Sep-2024 08:26:46 AM [facility] idiag Normal Not Available Comment on above: Order Comment: US OB TRANSVAGINAL No LMP recorded. Urinalysis macro (dipstick) panel (U)on 09-20-2024 Bilirubin, UA Negative Negative - 4(70) +++ mg/dL [facility] Blood, UA Negative Negative - 50 Yehuda/mcL [facility] Clarity, UA Clear [facility] Color, UA Yellow [facility] Glucose, UA Negative Negative - 1999(110) ++++ mg/dL [facility] Interpretation and review of laboratory results Normal [facility] Ketones, UA Negative Negative - 160(16) ++++ mg/dL [facility] Leukocytes, UA Trace Negative - 500+++ Kourtney/mcL [facility] Nitrite, UA Negative Negative - Positive [facility] pH, UA 6.5 5 - 9 [facility] Protein, UA Negative Negative - 2000(20) ++++ mg/dL [facility] Spec Grav, UA 1.025 1 - 1.03 [facility] Urobilinogen, UA 0.2 0.2 - 12 mg/dL [facility] CNNURSEon 09-03-2024 [facility] Nurse Visit (REIAV) JAZ SANDERS ([id number]) 1995 F Date Time Provider Department 09/03/24 10:40 AM TECH 1 [facility] REJ LURDES During your visit today, we recorded the following information about you: Charisse Weaver APRN.CNP 09/03/2024 5:42 PM Signed Jaz Lynda here today for a scan. This is [...] 2024 5:39 PM Referring Provider: SHELLY HERNANDEZ [[id number]] Allergies As of Date: 09/03/2024 (Not on File) Date Reviewed: 08/20/2024 Reviewed by: Shelly Hernandez APRN.WORKER'S COMPENSATION CLAIMS EXAMINER - Fully Assessed Visit Diagnosis:Early stage of (HCC) [Z34.90] Order(s):OBSTETRIC ULTRASOUND [facility] [[id number]] Order #: [id number]. #:[id number] WPOINTQty: 1 Prescriptions as of 09/03/2024 - [...] Status:Closed by BRADFORD DOSS on 09/03/24 Normal [facility] Examination level ultrasound on 09-03-2024 Indication Viability, Repeat Impression - Single, live, intrauterine . - An intrauterine gestational sac with a yolk sac and pole is present. - [place] rump length measurement is consistent with the [...] Read By: Bradford Doss M.D. MATERNAL MEDICINE [facility] Radiology Study observation (narrative) [facility] CNNURSEon 08-28-2024 CNNURSE Nurse Visit (REIBD) JAZ SANDERS ([id number]) 1995 F Date Time Provider Department 08/28/24 11:10 AM [facility] 2 [facility] BEAC REIBD During your visit today, we [...] Stacy Banuelos MD Referring Provider: SHELLY HERNANDEZ [[id number]] Allergies As of Date: 08/28/2024 (Not on File) Date Reviewed: 08/20/2024 Reviewed by: Shelly Hernandez APRN.CNP - Fully Assessed Visit Diagnosis: 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) [O09.811] Order(s):OBSTETRIC ULTRASOUND I [[id number]] Order #: [id number]. #:[id number] WPOINTQty: 1 Prescriptions as of 08/30/2024 - [...] Status:Closed by MIKEY HENLEY on 08/30/24 Normal [facility] Examination level ultrasound on 08-28-2024 Indication Viability Impression - Single, live, intrauterine . - An intrauterine gestational sac with a yolk sac and embryo is present. - [place] rump length measurement is consistent with the [...] Read By: Mikey Torres M.D. MATERNAL MEDICINE [facility] Radiology Study observation (narrative) [facility] 08-24-2024 [facility] Telephone (REIBD) JAZ SANDERS ([id number]) 1995 F Date Time Provider Department 08/24/24 SHELLY HERNANDEZ During your visit today, we recorded the following information about you: Charisse Ding 08/24/2024 11:52 AM Signed Pt would like a call back Marianna Ward, LEIGH 08/24/2024 1:58 PM Signed See 08/23/24 LIBBY Ward RN August 24, 2024 1:58 PM Allergies As of Date: 08/24/2024 (Not on File) Date Reviewed: 08/20/2024 Reviewed by: Shelly Hernandez APRN.WORKER'S COMPENSATION CLAIMS EXAMINER - Fully Assessed Reason for Visit: Patient [...] Encounter Status:Closed by MARIANNA WARD on 08/24/24 [facility] 08-23-2024 [place] Telephone (REIBD) JAZ SANDERS ([id number]) 1995 F Date Time Provider Department 08/23/24 SHELLY HERNANDEZ During your visit today, we recorded the following information about you: Angella Mccarthy 08/23/2024 10:39 AM Signed Name: Jaz Sanders called today. : 1995 (home) [phone] (cell) Reason for call: pt called today informing the nurse she has been experiencing pain of level 4 from 1-10. Pt has been experiencing pain for 2 day. 5 weeks today. The patients preferred pharmacy has been captured for this encounter? [facility] [employer] Shelly Hernandez, MOLDING FITTER.WORKER'S COMPENSATION CLAIMS EXAMINER 08/24/2024 5:58 PM Signed spoke with Jaz, [...] schedule the patient for the following- Location: [facility] Provider: nurse Visit type: scan Reason for visit/appointment notes: scan Date: 08/28 Time (requested): 1110 If slot is full, please schedule the closest open slot. Call to patient needed: no [employer], Angella 08/25/2024 8:37 AM Signed Pt is scheduled on 09/03/2024. Shelly Hernandez APRN.CNP 08/27/2024 11:51 AM Signed Addended by: SHELLY HERNANDEZ on: 08/27/2024 11:51 AM Modules accepted: Orders Allergies As of Date: 08/23/2024 (Not on File) Date Reviewed: 08/20/2024 Reviewed by: Shelly Hernandez APRN.CNP - Fully Assessed Reason for Visit: Pain [78] Primary Visit Diagnosis:Early stage of (HCC) [Z34.90] Order(s):OBSTETRIC ULTRASOUND [facility] [[id number]] Order #: [id number]: 1 FUTURE Prescriptions as of 08/27/2024 - [...] Encounter Status:Closed by SHELLY HERNANDEZ on 08/24/24 [facility] Coding Summaryon 08-22-2024 Coding Summary HTMLBase 64 BgfmbquyAWf3bLw+PGhlYWQ +HF2FJPPqV55ihDDrnK4fA2 NMTElOSywgQVBQTElOSyIgb jDlTU8lzIGrLWBl IC8+NI7bBTYdQkhzwDEkj1L 0hGF4C45zyd8fUJcnuLL3RY QpAhQdxdkti4wghRj8RPpeM mluOyBt AWXfcN24FAN2lV34Yp90fZE tzUMiv7ojcUh2AiQkNWXxAI G3aYxnMZadn3RtKAWbV91ac GIyi6W5 IBMbuCudrOAzHuTfmAK8kJ6 jKRumpfxty8djpnyvGdr8sl 84bLVmy6I4rQW9Q7CdkoN0Y GJvbGQg CwevxEGWxN2mbmxrp0lmeoy bTsDjFUUsKGt6EMn8DFZswP mnDuTiKN81XYR8GGPymhRfG 2FsLWFs uShfVlZ6g1X7Rb3XA6MFDwr lB3JTAMJRIKwbqAL+PC90cj 98C7MlEdafZvj3MZZjWSW2n MH5sT0b ZAIjGFvtd5N3hEE5H9ZxdtO nia0cu3klALUhSAkyM04ndR Wjb6K1ONYvbVH3SRZeaKrsC iBzaG93 Oyc+JDYwkAfjn7FvNntqq1i iv6dvfTj2EwkoETGeolItwO txNCJ5i5JyZq0cENFebJS5c NC2nB4t UpGgQcU5FSgnF226SuFdbBA eUimqX74iK6RqlHN+PHRyPj b5CMZigZfuVX6bQ8WgQIWaf mctbGVm mNxsDT7hSWZbvdhvDITjcK4 tUVNgE9z0AnLcDuW1LBowK3 BzGYDpgthcCs44mW2oWqKnJ wC2VOpf I6LkllR8YMVlxKZlVKisMRH 0X53kb6E1FWTqFOLzIWR5yN H7gG0azUpedhojmDKuhOygd mVydGlj NYwjIIyxG955IZUpcUioRjA vZGluZyBEYXRlOiAgMDUvMD cvMjAyNTwvdGQ+PIQsSOY9f WxlPSAn qVCpLZnsHf8xgUmpwFmwXX4 nBOOzoplhBPAjmO7uVHKxaW YqwXnpZW9tODNrhaudt483Q iAxMHB0 AXIudRApN3DalC6tDlGrXLD aGLEwZ0XdtUYeCPazV221SF faCxT2PDBeltLcI7RzCHKut WduOiB0 c3O1Pk2El8LzmtnpM7HelUY yNtNjCglpXSy9N7JqAbqefS I+UO98PKVwSN37CCp0MVX0e WxlPSdi RZYlH8PuqB7yQfBqEXSlNLQ kOyc+PHRhYmxlIHdpZHRoPS fzYNYdTdAlzDboLC9tBh7oU GVyLWNv oNzjeDLdMtFtk8lfIXLlAXo uAU0jeGqsL3RpbPS2NAIqm0 e8Ob27H50iO0KttMX+PGNvb SU7oPZ8 cV0qCsCrFgY6BPwuR456BgJ ifQHjOfspk7biv5mzdJf2Qi P0YVTtsoMubFieHAH8z3YjY n99A65p IHdpZHRoPSIxNSUiIHZhbGl oxa8lvM6rXz6+VVQqxZM6bL T0fL7dIwVyTrE3QDlwS595H nRvcCIv Utkgt7kjh6fcjLp3PrKnVCD smoJanKniAPZ4b8VxXo33E0 WnrRkib4DuOqk9yr25tOYrl 5H2uJQ2 U5HbKJBaackxlCGjxGvcTM7 zFBXbdufiKZNtmT6gVIQnM3 b6TlWdBbZ1BYquO0QgyhX2U GJvbGQg OXLttRQClF5qtcaei8drnbg jCjJgFIVmPKo1BSl5APPskH knJlYtPLR9QvV9REL1rBMpp X9oqOhu vnheuO7eBon+YII7oTVbfKT FBJ1zHlkgsUZ+YGNkIJZ1xP kwKWcnYXNtzQ4qFESbM4p4N iAwLjA1 UJlpU4PzcpK6LUMwqKBbBLJ yhKBTkP7xmrfym2fkkzcoAj PnWKJiFPa5FLe7BGNevYxlM iBsZWZ0 WnD0VLV5mOCnkR4xvZkjxpw seT9rUpu+HdpdnBsmQLM9AP r6C9KeZxq3JLDnsVvgTB7ru GFkZGlu Yi9jzEbwhQelFG6yWCZqbjf ua086SyVdk5zxBCPvxOCfSP ufUDQ2R00aw2S0UOKyQHQmQ QG1zMI8 iX5trSwjuhzgwUMznOphszF uvMccFAnxLJalH226EBDdkX wcMxEnFXn5B5GuQcf1LSSom OhiDI9k yVGnBFwiSa5uaFezpMrnOV0 uPRCfyqtnf078NaXef9qqSS PhxNBcZCanBWQ5N24gr9H4M CMwMDAw THE2eSG0yU4crVzgipmszVI mdDsgdmVydGljYWwtYWxpZ2 07MKXuaKmlMwJfnKd2Z6CsJ jj2CZBw qEkhRY6kmAVvCRooKr3qcYw yyWyiVP9rGMLuwcrzh015Tc Jcq2qnOBAkwFZvUYkcUQB0D 18jp6D6 UCSpKJKcIFT6oRF4nQ1wvYb nbjogbGVmdDsgdmVydGljYW weCNllN214GSXdpEgqDgTrh GllbnQg ZKpzLUy0U0QgQepyhME+PC9 0DMWcGZ28wWFevKZss7fsvI t1MoAiPKJiICV5oGddBLrte 3JkZXIt O65rgVEwj6D5JPKpuZbfwNY sQkPoiKS5qS9dRCizlvuyb7 hqvajqZajfz6truo67fV19K 29sIHdp ZHRoPSIzMCUiIHZhbGlnbj0 caN0xUv8+DDXbeKW6fNX2gY 4iEIOkFrU6EXieZ817MmIkm CIvPjxj g6uji1gmtXh6GpA3TGXhxdQ zdVpoFJA7l1ZtFh99W72sDQ dpZHRoPSIyMCUiIHZhbGlnb m2xoA9z Ii8+HMGsjUE4mLX4dL5vTwZ sBvF6EUwqY265LdRtlWUiMd xrP23sG5FvaUX+NTCyPuw3I CBzdHls NO9igBEqNUbqKk5aEWU8QqN xEbJfEUqfF7FwBVSreeixru cnxSS5MFMeIQNobK49Fy1ni DogMTBw rOGWfI8fvjhzo2ipfpkoVgA mEXToASa0REk6UKYdmXcjAs GiJXV8OgN9WGB3yYLqoH2sa Glnbjog kK2uI5XjCFBryrkdLm93yA1 vGxUtWmA7POziQcs+TUNDQU 5OLCBIRUFUSEVSIEVMSVpBQ kVUSDwv dGQ+JFPxJEL3yToqMUzcBTL laG0xFZHgY3c1UcHnAxJ1FV wgK2VjYCUparsfGt82eX1jL iAwLjA1 CXoaS1MxdwF2MUUdaBOrGJw dYZX7K63lx8R4WWPxDSVlSB W7gHS1rJ1uyAkqmelvzXTkj DsgdmVy dWkdLAnsKKjjV623VLJarUs tByYtVtU2TmR5GRK4V5BsCo e9JXQkoYybLB4gfZIcWQhgF o4vzLwu cMgoGR3cNTMznobfKLXyxR0 rCIBunURzwPcsWZ6bKNEhsr rjh375CoCgWNU5BNRfdIHxW 5XloX4k HiSqLOWaJZFbS3HqeVRfOOr uL577ILjoAxG3WUPeeyUbP5 OdSWPfsYwqHjK1r4F5Cm3dA SBZZWFy czwvdGQ+TRAoVCH8eVoqIYq xJBLkiD6uURFgH5k6UyPpVl E9NYjgQ7SuJSBxmiavJx45y B5qPuEm YqL5BJgnI0UrgpY2ZSPkeZG nTDdzJIW7O44nk5F6DEJdBH VbEXM4aVN1iW6dsLyicxfai GVmdDsg hdTwpZxmMPnfMZytW664TSA vcDsnPkZFTUFMRTwvdGQ+PH OqKKU6gDieIOebSCJuvB6dK HEmY4a7 LeMwQeR6LLtqS5BeBFPlvir kHz30lZ0wRwYwFcN5UCpaQ2 IdvlP1FFMcrZJrFVhaLGR1N 52ec4M8 XYNfCNYzIFB8bOF7qN5arQi nbjogbGVmdDsgdmVydGljYW wlPLtvD392IJTfaSdsMm1UF T48ZC71 L4JqKzknwBAhrIQ+PHRhYmx lIHdpZHRoPScxMDAlJyBzdH eoTU8cSp1kANQvUIXjcKnul HNlOiBj v1fvRCSiQDocLP7vqDtiD7T tpDC8GDCmr5w8Lx23P13pL1 JvdXA+TJYypSM3gDW1nX0gN zAlIiB2 XFfiL433CnEzcKFmHrcym7s pv4hxjOw7IwNsJGMnlhWsnX raSAD0b5HtBu16D07mWTmzE HRoPSIy SQFmIBGxcVgnlu7vcT7tCb2 +ENChtHP2kYS6cS8nAgOvNt F6ZPnzO998SoUvaDQiWydpG 01gZ6Ty dXA+MSQkWgb9BBFckNhkJS3 arLVfHXzoXs5kIOB3FkKbYx DjRDpkE1UyGGXtnbbjvfszy DJ9KUCq YHFewI43Hj4rpLvtBz3jWHR tODU2WPNfrZSdU7NjtX0aXg AcEIGvQKGeT6JagGMlUYfjF 246IGxl EeE6UJOmcyAjF1JxKGDlhEa hFiT7n7T3Uv0ZvQzvmIMtNF 7eGrKmLTe9W3BqRri7TNTxn LrcCP8a pWEcCEnoIg7vxQxxmOqiOP0 zGKAblzssn140LgRet9yzMQ QyvVLkMIlvXWW6V15bz0G1J CMwMDAw OKX2aHF4oV7zrLkmuxjkeMO mdDsgdmVydGljYWwtYWxpZ2 74WFZjnSbiZnGSXzr9K3OqH pf5CDUc vEojTN8ydXAvDKliXf2tvPr ucWsjXU1cIGDjxarmd020Bg Cqb4hpYUDpuRQrJJloKRZ0V 42uk2A0 FIMzVWFjLQE3aYP4zY0rmHu nbjogbGVmdDsgdmVydGljYW oaJVifJ913IVSunPgmFn7DP yx2C6Ag Ebg5PCZsxYuhTV2vrHHyPXq yGi2atJlhhYomDS1xFXFpsf tgk713TmHae2feCBBffRErT GltZXM7 C30qg8Y0ASGhPUIpQDO5tHQ 9wM9jwRskdfzmfMDbiUbdcm XmhNlsOAvcWXceG617GQShp DsnPlBh eWVyOjwvdGQ+QL71do79T2P yDagiAed2NMNrLUZ9qGZ7vD 6bPSCsRTpei8Q6oRT5S8Jcf qZcpt9r b2x (more content not included)... [facility] Coding Summaryon 08-20-2024 Coding Summary HTMLBase 64 TeptmkhrHPh8iGt+PGhlYWQ +VT3MCYXgT77ugDAgxH4oC2 NMTElOSywgQVBQTElOSyIgb tVwJF7oxQEcVOKp IC8+CM9lZWXvWozqoHFir0M 1zYM4D00jgc6oAImqrDO6SR ZgOgGggrqaz8vvfSv2EHofD mluOyBt IFXjcU16GBP7sZ93Mi80oIR xsGPaj1itzAe0VpDxCEZaZE X7kOgtJPcbt6RpQRWwY44jy WSrx3B5 FETzhQtlyGTaOrBujYO1iF4 qGKarmqxpr0axgfqqIhr3wo 19vPAah4K4xUH1F0JqscN8T GJvbGQg HbkmwBHKgN4zytphf5kkxoj mUjWoTSDuZOn2PYe3OVGhyK nsLiQvOL70MPM7RAGyzxUvF 2FsLWFs zPaxZnD3m8N7Vd9ZD3VVSrs qF9GROJREMDiejTW+PC90cj 31J9NaDgarPdc1JSKfSJC4z FC2cN1w SFVzOBsld8G6aHI4D1HxbxA gyf9oy6omZJYfUEgiC65gxS Xsp2I3BIZzvIP0TULmlPtpB iBzaG93 Oyc+FYSnvXjvy9FiNcjbc5b gw9cbcBq3EvtsDXKdkiPdtS cjAYG9v0VvNq1vXCNriST8q FL1uX3q WmNoBhO8NVleU711RfHgjPE hYlunA43xL8CwmWG+PHRyPj h4QIOymTpkBI8aN0VzBEBao mctbGVm mUmfVW9uRVDfmupxXHOwqA0 zXKXlV4m8RpJzUdB4FYoyU6 FnUWWkwbpkIu38hD2wAxYaP iO8SDvp R0HpnzS2OCMkzHYvUWooOMH 3S27zs5U6KWNpFPKzTEH8jR I7uI8nsMldsgnhkOMbeGbhb mVydGlj LUevQLqaB699NBTusAulLnH vZGluZyBEYXRlOiAgMDUvMD UvMjAyNTwvdGQ+TMWzQGM5t WxlPSAn jYFhIIfsCl7okRljuQgtYU9 bSCEucuseCVFgxU8lPLLynY RwgHlaLN0eWGIqiraru557L iAxMHB0 QNEciPQvU3UyuO1zLrJzHUM kINIgQ6PslKMmGYcxF461LV dfJmU0FKHokhXrA5YwBVMsg WduOiB0 m0V8Ez7Qr2YgvxdfG4UmyFF xYyBpLemhRYa9C1McAeeuyO I+RA24PYAaWN96MIz3WYV7s WxlPSdi IMHyT4NuoY8yIhYmONFdIZD kOyc+PHRhYmxlIHdpZHRoPS aiMCWeGjTvfCzqZQ2mTq5uG GVyLWNv bPbxkCZuIqHtc6qeJBEhXWz aXU2ccBsxY7RssLY9GWKxl7 z3Wm59S34zM5AerYR+PGNvb MJ9pYG8 wE3nEbHtTzM8LGekT788ScJ ncIByHeysd6znp6cptFr3Pe O6PGEsewFzcXtpAUB0q3AgW f13P02b IHdpZHRoPSIxNSUiIHZhbGl kqe4czM6lKv9+ZUAvvRT3uR E4uG9gIvGtLtN6RQkwI594V nRvcCIv Dqktb7nlh8cukPm3SbAsIFA cbqSozLpgCVJ4u7RfQk58Z4 PeqSrdn4NfEvm3lf34eYKsx 6M6yPK0 A3UkCFFqhzgydZQqzZfbOW8 dPOWrkxmyVPUawP7vRJCuD2 x1IcTwDwF6GOgsJ3ContT7O GJvbGQg FHHbdGFAcA8zkspsa9puczn nGxGdMEHrTYt9PYw0DBSywN wkKgPhNGZ7OkW3PAI4wMOaa S6hxGij ejgupR9bAzm+DMJ5iAIpqGM MOU3yBcgmqQV+NUJbIWY6hV yvWAxbUYPkgZ1oYODsP9s8I iAwLjA1 STmmI5PagfP0XEFosAWpOER jkEXGkC7tzfmdx2larareYj ShHQIyQTe5ZFm0TUIhcVlyQ iBsZWZ0 HgB8TXP1bOXvcX2mkNysitk xqS8kGog+KlwueKklYKR2TF u5R6VtFxa9SFOlaQowVR8tb GFkZGlu Yl2yyPflsQqxWO3bZXDowdh te736OnDln2ytCCMzmNUkAD ivAPZ4J86wu2W7MLPyEVWcC AL5nTP1 cA9tpPyuxpfbsJDbuTigruZ agPjtBAwpOEgeJ963ILOqnW ltVcHdAKg3F1YzBtf7OUXcr PkhBG6y eUWrTTdvFx1stJfoyGsmLW5 hLITjpxgaf953CxQdh8ibAR RacCRaIFafARS8N75iy4B4N CMwMDAw GEK7uTV4aP2foBybtwftoUB mdDsgdmVydGljYWwtYWxpZ2 13BCDxxWloBdHnvEl4R1HrO ta3TQUs iRnvGB5gyAWrIUzbGh7yhOr tpUrnYP9sLZOjfntby366Nw Zkb4muDVOkuWLbFIqdHVM7F 61hy4N4 ROZvOJYzSWU6wLN3bS1nbVa nbjogbGVmdDsgdmVydGljYW qoMTdgY852KFZicZruApGtq GllbnQg TNhpCOi5R6OrRdqjmWD+PC9 4ACTeXJ50iPKigTIdm3tnkD x3EhRqLBEoKHI0cNmnAUxtb 3JkZXIt R52xfQXpf6J1YOEbzEcewIC jEtPvsEB6uW1aGEqpmibsu7 rsnwotKtysr9dxxy68oZ54N 29sIHdp ZHRoPSIzMCUiIHZhbGlnbj0 tdD3xHd2+COHhyHE1gLH5mR 2mPBQtTsX0BWhlY342UlEwv CIvPjxj w2bfi0zpgZs8WyM2ALFfeuW uwUkjHHJ6f8IoJy79J69oCJ dpZHRoPSIyMCUiIHZhbGlnb f4cxB8p Ii8+UGUulCD1uHK5kI2cEqW dHxK0NItuK387FwEdkEGjKg agL57nH9RacGK+QAPcXym3T CBzdHls FT7yyDZnJYgsWm2aWBX3FtJ bQbUnPUzcR2RlQEBnqnfujq iuhEW2OPDcFGGqqS90Yy9yz DogMTBw sUKTlC5gdzunh6wimgkqHyI dNPCwJLw7COu3UNXfzBldQo EyBQS0DeW6CBY6xAAgmY1pp Glnbjog rB7aR0YpBCUengonGi32gE7 iKzEzFiS7JMqoSbr+TUNDQU 5OLCBIRUFUSEVSIEVMSVpBQ kVUSDwv dGQ+UETaKTN5aSygRHucSGQ gcL4zNRMyN1u4QcIiEgL9MZ vgI7CgTQGqvcfbAc39kB4sB iAwLjA1 JWcoC1JpwmS1ZNXmmRMdJEo nLUC5P84ao8H7KFNsDVUgDW U7zEE7kO6tnIjtlqxtdHYtn DsgdmVy zVjqBIqcBWacR248AOTyvLd lFqVqTkG4DpI8QNP8K6BiAn v8AIRvgIwfJG2flJItPUscT p2bePwu iHbrZY1tYTLoivcxYZSqyH0 bMRKlzWGiuMkkPD2zDDCbfd nsf368QkVsPQH4JJKdiSFvM 0XaxO7w FlSdTQYkRLNqE5CrcVVvZDu cO546RHajMsR0JSRkyyEkE0 LsOWAdwDzxRbE3a2I1Co8nB SBZZWFy czwvdGQ+SETtTSN3fJqpBXe rNVIecH1mSSKoJ4f5PtJhBk Y4RUyaV8LqINLpjehwXd61s F1hNaMv TiM5ICcgT4NbxvS6JWLvtTY jMJpaNXK0P51eu5F4BXMsLV VzNAZ7uUB7cD2shKolafyub GVmdDsg qsDovPeaCEgsBAsoC618CLL vcDsnPkZFTUFMRTwvdGQ+PH AcYQN5dDgyNSvcFMGlrB1jC SAfP4q5 EgRfNpO3KGcuI7ZdERKehqz gAa18mB6tPdTrQrE6LFlnN6 WpjtW2CKNtbECxJSatUUX4X 32cr5O3 PLWpKEFtEWO3hBU5sG0vuVw nbjogbGVmdDsgdmVydGljYW nfEAirJ804TZIwwLryPd1NH T51CU50 A9OmZjtzrTZyxBB+PHRhYmx lIHdpZHRoPScxMDAlJyBzdH dxKP5bKr0sHVSsJPCwlDmca HNlOiBj e5oiTXShMNhqGA9sgOafW1J ctVB2IKGft4x3Vt56X38yW4 JvdXA+YTAbnOW5fMP8kA0mL zAlIiB2 GJmtW208CoVqkIDpCfqpq9z zc7tecXr0IqKwKGNpwtCxmP rmZAY9s1BiTx70A56eALswW HRoPSIy JELfOHSmgStmjn7kkR2rVy7 +BPZguTR0uTU6nZ2vAwXvLr Z0TQibS286FuMkaESbLrirK 41gE1Hw dXA+DLEwWnf0ILAyrZcsDT5 jjRPpPYctMm7iIZF4CaVmPu LgSWcsL9RyYEGzsesjdplln CD4SWWs ULRevK86Wf7qkVsdNp4bRVJ cFQZ2DNMrfWNwG3SdvK6mUw IiNFKaHSKqN4SmjTJcMVmzN 246IGxl SmZ7AYXqbwToR2GlDAPlvGt wHpN1i6D3Wp2FoElqnHRkYV 9zWnLbHVr3Q2NnIsk0AXFba IfqWF4b uKYhMAsqDy7rmTsdmHcfAS0 lHAMucaawv941TvEtq8yrFT PlrBKyAMwxQFK5O13jq5U2O CMwMDAw RAH8jVU4cX4hzOlrcbdlkZV mdDsgdmVydGljYWwtYWxpZ2 96NGDkkNmeCeDZOsx0I8UkQ ne9WWGv zVxyHQ0btBJnEOxfBm7urCn bsCvlRV3rVZAesaifj563Eo Bzb0omVGWnzJCeJQfaRIH6P 91cy0S7 YKVaQBWtIHQ5uJX9nI5dwLt nbjogbGVmdDsgdmVydGljYW chKZqnA813NFWlvHenPm5FP xb2L1Gm Sxd0NWUtuLmhVS1qbNHmZGx fWq7pkApwgVqwTR2zRUVkor evz148AxYhe1iwYBJwsNJrH GltZXM7 P17ke8J2UBDzNBGqPCV6jZP 1fL3pgKuoyaulcVYgbAmuli KsnFopAUroUCasJ951MHAwg DsnPlBh eWVyOjwvdGQ+TX57xt51B8V gVlsnDrg1PMDgORV9xAI6eI 8vURPhCRvqe0P0uBJ3Q7Pln bGmxc0t b2x (more content not included)... [facility] Coding Summary HTMLBase 64 UzwjgiggNFk0uNk+PGhlYWQ +IB0NNJNdY40xnQPhsC8bN6 NMTElOSywgQVBQTElOSyIgb oWxXL5urIRuZSLf IC8+WX0aOXBnFxgfhKRie1O 6tZL8F74ner8mTFmczNW1KG XxWcWeblhmp2bsqZf9TNgxQ mluOyBt OZKaeH89NJI4mD02Dk62lRN xjJPlf9vjxWv0KrWrHDXuAR B1vBzlJIazx3ZbSCWnB13gw ODuo0W9 BPKpoZszzNMiXxYpgVB5vB4 zOIkarootk8gfkejaUiv9ws 56hDQal8J8pRK0E6OavbF0O GJvbGQg DwdhnBHIjV2wgrlym7vpcbd bEnFuIAVgEBu6JAe1WHVojL fqShEdCG16GII4UVLzaqNuN 2FsLWFs gVreByR0a2Y0Sl1OO1EMCbc iN6GKTJAKVTcjiXU+PC90cj 40T2JuFcsbZjr2BDZqRYW4u JE7wD6w NOUwYErtq9T7wNR5O1YohsG ymx6jc9meUQNfXTqwK32uxC Tcc8Y7YDBecCU6IRRrtLstJ iBzaG93 Oyc+RMBnlQydu3QqFpfyo4h td3eldFr5JdxaCTQmgdHmkV atDCN6b0XqZr5bUMLdnLY0r PS5dU8n NrTtMmG1CMwjS298NfNzdYZ aZabrZ34hO1JaaKY+PHRyPj r7KUYgaYegRO4uK4YmBFDaf mctbGVm eQbcRI5uTCGbnlbjYXDjeP6 lDOViL4t0TpBnOrN6RHreN7 NbWYJdpmmeDf38wC0kLpQkB gC0NRok H4EcpmJ3PUPguKYyFUeoKST 5F65zm1B2HYKlLKOtCHD7uN I4bR3taUpxknwuaGTjiCcjr mVydGlj TAkeQIftM666AHBzbRjvNdI vZGluZyBEYXRlOiAgMDUvMD UvMjAyNTwvdGQ+YAIzSWG5v WxlPSAn nVIaGUsaLw4bxJxafZwgVN5 gQQIkxaovBJFczF2nIHDsuN FvdAvpWK8uOBPapdtst784Z iAxMHB0 JKFkbHHuJ7UsgO4uVqVjVEI zUUVsN0TsqSZiLLhtV836NW zqQhY2QGDdetRpV0HfNRJum WduOiB0 z5Y8Jy9Xo8YscymvQ0YjeCE jEwCyFbntQTs1E9JpMdaydS I+CL97AJNgWU61KLa5QKU1c WxlPSdi RCOkC6OqpI1dPkUqYKDvYOD kOyc+PHRhYmxlIHdpZHRoPS ifCOAmYaGsjAucWB9vPy0sO GVyLWNv tXcpkVZdIqWkw5mwBLZdFBl nGX2wgKzlF6AksAP1PDXid4 h0Nw19V13oB0TbzCF+PGNvb QD4nHB6 eR2ySiBrQzS2OGyqG563RcH rhVGeFpfde3tfy4yztUk8Wt H7ZOFxyhVeeLywVHB1a2DbU s96U72o IHdpZHRoPSIxNSUiIHZhbGl hsh3uxY3bWb9+IRFjiKO6oQ C8vK3cDbVpUxS9KHhaZ076U nRvcCIv Ytwhd4ayf5wcjSd2CkZjNGL iskPsfIwrPLV4w5CxWm31V4 IiaFhqz0QhGcc1vn45kAAzk 4D9gBL9 P6EcEXCuntbfrKVxuDqiUI2 zYZTsnvrtVAKfdL2oDGMnR9 d1VqXlPhL7FTxnH7SymjC1G GJvbGQg HUDagYBFjS6vtrwzp2gdwfw eKhWzYYVtZJr6OIc0HQAodP hgJfKiIFJ5AlD8PTZ8kYOdx C3orExh rqatfF1vEvh+VUR1iBUzvSX AYE6rKuzqcOS+PYHiLZG4uQ prDAalFSBaeA3gCPSeS2z8C iAwLjA1 UCfgS3FjekY1HKXieCTmQTR mvGGYpX3jouqej9phnikoKr MtJNRtSJv3FFi2TNDxmDwiK iBsZWZ0 PgC5BOT7dVBqzC8iqElpzii rgH8eUlc+MwyazHlwPUP2FV n5J0AkIna2FMPgkZffKC3gf GFkZGlu El5ovOivqBudYH6aLOBuqjq nl809MfTou9olBEQeiWTfDG phEWF9H68mv7Q6JJCuNHKjI VJ8hOQ0 uG1wmJjotwsitJHjpZjqxjW jeKhuGCkvBThjE678IYUydR djZrAfVFf8D6BwVkf7PRKtk LrkVZ1t vHJqQXuhJe7cnXrfzKcfDI1 yJKEyqgfrv488EfIbn5dmPY NecFHyWWbnEBZ7T76rg8S5D CMwMDAw MAM8sZB0yY4btQavzwkfuGB mdDsgdmVydGljYWwtYWxpZ2 40NPXwoXrcPjQfeEn2W7TiC lh4JEXb hEugZO6vvUPmIEevMe0vxGj qkPmpOT0jFRDsjpvbp007Jz Nsn1bgUEKxhFKqOBsmKXH1G 87xc4D1 WDHfJKSxMTG9oPN3xI8evKi nbjogbGVmdDsgdmVydGljYW leTTsnK817OMKmlAirFpVvi GllbnQg ZGluOOv7Z9KwPojovTX+PC9 4YCYfMD55zFFprIZnp5chcO i8AhJsKHPaDLU7tOqfXPikz 3JkZXIt U33xoDUoy6G5OZZwvGfcuXB eBpEwzUZ7rB9uBYkqnrhpj1 tyzehxGhqmk7yzpu93pQ96H 29sIHdp ZHRoPSIzMCUiIHZhbGlnbj0 qnQ8oWe4+HUCwjLO4qAU5gN 5eMUYlXeY2BVilZ485SvAmq CIvPjxj u6cae5vevHw8FxC5OXKjvsV zfJevDOC0x6ImMw86I18hIB dpZHRoPSIyMCUiIHZhbGlnb i0gfC1s Ii8+DJEvlAY2fYG2gH8vWqI kCxD4ITtpS786EyGccMGfMe rmX14jN5RltCY+DJDcDbx4M CBzdHls QU2enUIpYKaaLs2hEQF8GsF oJwMpPOniJ3KpAFIsresuuc ixbVB5KXYwIHXyzT00Bv4dt DogMTBw jXSBfW9atnbhj9mojoegIcE fCMDsNZx8HJc1XFBkgYvyOm GmJTH9NxC5TTO2bHQvmK6im Glnbjog qV7vC7EcGGZmmdauLs72gK8 iCeWmBvR4MPzgTgu+TUNDQU 5OLCBIRUFUSEVSIEVMSVpBQ kVUSDwv dGQ+PFNvOEI9iQnxBHdiVRO tzK8zMPMcC7k6QrCxSzW3OG ajQ9CpPPJopmibMp32lG3yO iAwLjA1 XNcgA9UluzS9BBAmgYUqEIa qEBQ9S97er1D7WJYvXLNsVO N8sUN3zF8glNdnybzlePWbz DsgdmVy lHieDChoCBbtL767WLYowYv tFsBdAwD2XlK0FRE8X8DfEq q8EDDdrVunEV5eyZYdASskV d7hrAlq rZjgZD6wTXDhjgdqEIZweP8 lZBNfmOKrlFiqLJ5tXDAtcn gfz431MvHdMCT6TYIbjRWxR 0UbfH6p AbVtQZGsLLMjL0MeyNRoYNk sH753FBnqWiG6PYTadeJsN8 OxIHFjzNgoHeS5o8S1Th6gD SBZZWFy czwvdGQ+RGDiNJJ3wTrsIVl zSHNcyA7vGNKeF1u4FsCoHt V6EKihB6TcNQNjzmifHi90i E1aOdXs RzJ4PQzoX9BqaoE7IGEziLS eKRtrBUY3N27zu3N3SXCuXZ KsLAM9aUO4iB7psRhpjvzee GVmdDsg tuYbbLngRFjvPOtkD969DEI vcDsnPkZFTUFMRTwvdGQ+PH HaGYW6wNluYPfbFIVnmT3iP TKyS4f5 JfFrVzS9YSlcD5BhWAVttog nPh54kG7gSgHyLhV7GOmfX6 HtymM3NHFtlKScIWbdEMF9N 72bk7H2 JGPfWMQuHTV7hIE8qE4moTr nbjogbGVmdDsgdmVydGljYW ieOKrfM465KAClkWflQz8DU R63TM55 A4CzQhqjvJSqhNT+PHRhYmx lIHdpZHRoPScxMDAlJyBzdH oeNQ3wHa7vWEFiYPMwbOrjq HNlOiBj n3elNDTeQQgfMD8emSltX8V byAK5VXAbo3r1Pt83O35sM4 JvdXA+NBAqxOP9sIX6vC0tQ zAlIiB2 JYgpD300RdHuqCEaWtkvx9s ya8pciBk8QgZmBJFtsaIymU hfIXZ9v1XpGz71E06hVUiwL HRoPSIy WEHbYPFctDcbla2zzH4tGp2 +NYMqcFY6nPR6nY2lIbZrSe E9CYhpY538XiCwbTIdQudyP 88oQ4Gt dXA+TSNeBun1UKLosDziNK1 uwZPpJYjgPb7zLWK0HwQuSd FdNHloY7RaGTOqixavjxghx AU0DQOf PLAqmW44Ki2hlMfaXf4tCIW aWRP9MULucPBjJ0CnaM6eYd UdJZKqKMWrQ3RsfYFkYAizA 246IGxl BeW5GDIlbfSwH7KaJDHxrNx fKzN5g1Y7Vk5HtPslyVUvBL 0pGjVcRSi5F2HuMja6XLRso TkwMQ3o gBBrVAezNv5amAgmtZhhWH7 hTVNqfwsew487FuTwh9tvIY IstVPiMSwgPBY3T15ow9P5V CMwMDAw ZYD9pGA1qW4aaRfvlaymbPJ mdDsgdmVydGljYWwtYWxpZ2 62QJDmdXttAwJGKmi1P7JgM xm3VBRj bWwgMS7skVCiNOuhHi9yhTz ffUcfGO1mICWbxkivp167Tn Kdy1plMCAiiLMwERfoEAD1H 81qb0K4 KSXuYOVsBXF2yBI5nO0fpWn nbjogbGVmdDsgdmVydGljYW uzEMvcS992LFVbeQmaCd0BY yf0A4Vw Usp6UOYihByfKR0egNXkAIu mGa2plTrcpAziKF1jLAWjex zel745AuTfc4mgDXFnmPQiU GltZXM7 U31up3J7AITdPXQsJIJ1gGC 4kR4ntUphgolmxGNdrFtwgp DadCreLIioKTehT588MSCad DsnPlBh eWVyOjwvdGQ+IJ64ph71M8Z lItkwLww9GWNyYNF2fEA1rQ 8uSCKaUVjmy9V9zOD4E0Lyf xErzb3l b2x (more content not included)... [facility] Provider [place] 08-17-2024 Provider Orders [id number] TGTIFF [facility] hCG Quantitativeon hCG Quantitative 362.7 mIU/mL High 0.0-0.6 [facility] Comment on above: Result Comment: Post -Menopausal Reference Range is: 0.1-11.6 mIU/mL Performed By: #### [id number] #### [facility] (DEFAULT) [address] [place] [address] Xavier 08-16-2024 [place] Telephone (REIBD) JAZ SANDERS ([id number]) 1995 F Date Time Provider Department 08/16/24 SHELLY HERNANDEZ During your visit today, we recorded the following information about you: Angella Mccarthy 08/16/2024 12:31 PM Signed Name: Jaz Sanders called today. : 1995 (home) [phone] (cell) Reason for call: pt called that she got positive test, she has been having having cramping since last night , it happens every hours for couple minutes. The patients preferred pharmacy has been captured for this encounter? yes Angella Morillo Soft Sugar SupervisorDaniel Li APRN.JARROD 08/16/2024 5:28 PM Signed Called patient back to phone number listed in [facility]-no answer. Lm for patient to look out for [employer] message. Daniel Hanna APRN.CNP August 16, 2024 5:15 PM Allergies As of Date: 08/16/2024 (Not on File) Date Reviewed: 05/09/2024 Reviewed by: Shelly Hernandez APRN.WORKER'S COMPENSATION CLAIMS EXAMINER - Fully Assessed Reason for Visit: positive for [Other] Primary Visit Diagnosis: 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) [O09.811] Prescriptions as of 08/16/2024 - naltrexone [...] Encounter Status:Closed by DANIEL [facility] ([id number]) 1995 F Date Time Provider Department 08/15/24 SHELLY HERNANDEZ REARLET During your visit today, [...] Date Reviewed: 05/09/2024 Reviewed by: Shelly Hernandez, MELY.WORKER'S COMPENSATION CLAIMS EXAMINER - Fully Assessed Reason for Visit: Patient Question [3447] Prescriptions as of 08/23/2024 - buPROPion SR [...] Encounter Status:Closed by SHELLY HERNANDEZ on 08/15/24 [facility] Provider [place] 08-15-2024 Provider Orders [id number]#1.00O TGTIFF Normal [facility] hCG Quantitativeon hCG Quantitative 160.6 mIU/mL High 0.0-0.6 [facility] Comment on above: Result Comment: Post -Menopausal Reference Range is: 0.1-11.6 mIU/mL Performed By: #### 7 [id number] #### [facility] (DEFAULT) [address] [place] [address] Xavier 08-13-2024 [place] Telephone (REIBD) JAZ SANDERS ([id number]) 1995 F Date Time Provider Department 08/13/24 SHELLY HERNANDEZ REIBAri During your visit today, we recorded the following information about you: Marianna Ward RN 08/13/2024 11:19 AM Signed Letters sent. sent to patient Marianna Ward RN August 13, 2024 11:19 AM Allergies As of Date: 08/13/2024 (Not on File) Date Reviewed: 05/09/2024 Reviewed by: Shelly Hernandez, MOLDING FITTER.WORKER'S COMPENSATION CLAIMS EXAMINER - Fully Assessed Reason for Visit: Wants hcg levels sent to [facility] / [place] far away [Other] Prescriptions [...] Encounter Status:Closed by MARIANNA WARD on 08/13/24 [facility] Provider Orderson 08-13-2024 Provider Orders [id number]#1.00 OTGTIFF [facility] hCG Quantitativeon hCG Quantitative 63.6 mIU/mL High 0.0-0.6 [facility] Comment on above: Result Comment: Post -Menopausal Reference Range is: 0.1-11.6 mIU/mL Performed By: #### 7 [id number] #### [facility] (DEFAULT) [address] [place] [address] CNOVon 07-31-2024 CNOV Office Visit (REIBD) JAZ SANDERS ([id number]) 1995 F Date Time Provider Department 07/31/24 3:00 PM SHELLY HERNANDEZ During your visit today, we recorded the following information about you: Last Period 07/19/24 Mustapha Tello MA 07/31/2024 3:12 PM Addendum Patient verified by full name and date of . Jaz Sanders is here today for an IUI. LMP: 07/19/2024 Natural cycle IUI Timed With: Ovulation Predictor Kit , Date: 07/30/2024 Metal Can Inspector offered: Patient declines Mustapha Tello MA July 31, 2024 3:12 PM Dominguez Barry 09/05/2024 10:45 PM Signed IUI specimen released to provider Dominguez Barry July 31, 2024 3:24 PM Dominguez Barry 09/05/2024 10:45 PM Signed IUI Cryobio Donor # [id number] Pre: frozen washed specimen Post: 82 M/ml, 67% Insem # 27.5 million Shelly Hernandez APRN.CNP 09/05/2024 10:45 PM Signed WHI JAMLE IUI PROCEDURE NOTE Date: 07/31/2024 Primary Proceduralist: Shelly Hernandez APRN.CNP Consents and Labels Consent Signed: Informed Consent obtained and on the chart Labels Verified With Patient: Yes Indications: Jaz Sanders, is a 29 year old female here today for intrauterine insemination. IUI # 3. Cycle Day: Last menstrual period: 07/19/2024 [place] Protocol: UNIVERSAL PROTOCOL / SAFETY CHECKLIST Procedure [...] Encounter Status:Closed by SHELLY HERNANDEZ on 09/05/24 [facility] CNOV Office Visit (ANDRBE ) JAZ SANDERS ([id number]) 1995 F Date Time Provider Department 07/31/24 2:30 PM ANDROLOGY MUSHROOM CUTTER [facility] During your visit today, we recorded the following information about you: Dominguez Barry 07/31/2024 3:26 PM Signed Thaw for IUI. Dominguez Barry Referring Provider: SELF [[id number]] Allergies As of Date: 07/31/2024 (Not on File) Date Reviewed: 05/09/2024 Reviewed by: Shelly Hernandez, MOLDING FITTER.WORKER'S COMPENSATION CLAIMS EXAMINER - Fully Assessed Primary Visit Diagnosis:Procreative management [...] Encounter Status:Closed by DOMINGUEZ BARRY on 07/31/24 [facility] [place] Telephone (REIBD) JAZ SANDERS ([id number]) 1995 F Date Time Provider Department 07/30/24 SHELLY HERNANDEZ REARLET During your visit today, we recorded the following information about you: Charisse Ding 07/30/2024 3:16 PM Signed N- ivf Pt has questions regarding IUI Shelly Hernandez APRN.CNP 07/30/2024 6:00 PM Signed patient's OPK today was dark but not positive Plan: test again tomorrow. if darker, schedule IUI on Tuesday if park interpreter than today, schedule IUI the same day Shelly Hernandez APRN.CNP July 30, 2024 6:00 PM Allergies As of Date: 07/30/2024 (Not on File) Date Reviewed: 05/09/2024 Reviewed by: Shelly Hernandez APRN.CNP - Fully Assessed Reason for Visit: Patient Question [2567] Prescriptions as of 07/30/2024 - naltrexone 50 [...] Status:Closed by SHELLY HERNANDEZ on 07/30/24 Normal [facility] CNOVon 07-07-2024 CNOV Office Visit (REIBD) JAZ SANDERS ([id number]) 1995 F Date Time Provider Department 07/07/24 [...] Cycle Day: 14 Last menstrual period: 06/24/2024 [place] Protocol: UNIVERSAL PROTOCOL / SAFETY CHECKLIST Procedure [...] Gonzalez 07/19/2024 7:50 AM Signed IUI [facility]obio #[id number] Washed frozen specimen Post: 31 m/ml, 77% Insem#: 10.8 million Referring Provider: DANIEL HANNA [[id number]] Allergies As of Date: 07/07/2024 (Not on File) Date Reviewed: 05/09/2024 Reviewed by: Shelly Hernandez APRN.CNP - Fully Assessed Primary Visit Diagnosis:Encounter for [...] Encounter Status:Closed by MIKEY HENLEY on 07/19/24 [facility] CNOV Office Visit (ANDRBE ) JAZ SANDERS ([id number]) 1995 F Date Time Provider Department 07/07/24 9:30 AM ANDROLOGY MUSHROOM CUTTER [place] During your visit today, we recorded the following information about you: Nichelle Gonzalez 07/07/2024 9:41 AM Signed Thaw for IUI Nichelle Gonzalez Referring Provider: DANIEL HANNA [[id number]] Allergies As of Date: 07/07/2024 (Not on File) Date Reviewed: 05/09/2024 Reviewed by: David, Shelly G, MOLDING FITTER.WORKER'S COMPENSATION CLAIMS EXAMINER - Fully Assessed Primary Visit Diagnosis:Procreative management [...] Encounter Status:Closed by NICHELLE GONZALEZ on 07/07/24 [facility] Telephone (REIBD) JAZ SANDERS ([id number]) 1995 F Date Time Provider Department 07/06/24 [...] Date Reviewed: 05/09/2024 Reviewed by: Shelly Hernandez APRN.WORKER'S COMPENSATION CLAIMS EXAMINER - Fully Assessed Reason for Visit: Patient [...] Encounter Status:Closed by BECKI ISAACS on 07/06/24 [facility] Telephone (REIBD) JAZ SANDERS ([id number]) 1995 F Date Time Provider Department 07/05/24 [...] Date Reviewed: 05/09/2024 Reviewed by: Shelly Hernandez APRN.WORKER'S COMPENSATION CLAIMS EXAMINER - Fully Assessed Reason for Visit: re [...] Encounter Status:Closed by MARIANNA WARD on 07/06/24 [facility] Xavier 07-04-2024 [place] Telephone (REIBD) SANDERSJAZ ANDERSON ([id number]) 1995 F Date Time Provider Department 07/04/24 SHELLY HERNANDEZ During your visit today, we [...] Signed Ignacio Guy MD to Jamel Skylar Walnut 07/05/24 9:05 AM Cervicalpolyp does not need to be removed. [facility] her [facility] IUI. Dr. Duran [...] Status:Closed by SHELLY HERNANDEZ on 07/04/24 Normal [facility] US Pelvison 07-04-2024 Indication infertility testing Impression [...] Read By: Ignacio Guy M.D. MATERNAL MEDICINE [facility] Radiology Study observation (narrative) [facility] Xavier 06-29-2024 [place] Telephone (REIBD) JAZ SANDERS ([id number]) 1995 F Date Time Provider Department 06/29/24 [...] us before iui this weekend Shelly Hernandez APRN.WORKER'S COMPENSATION CLAIMS EXAMINER 07/03/2024 12:34 PM Signed unable to reach, left message to return my call Shelly Hernandez APRN.[facility] July 03, 2024 12:33 PM Patricia Snow 08/13/2024 8:52 AM Signed Pos preg test Marianna Ward RN 08/13/2024 9:17 AM Signed See TE encounter dated 08/13 Marianna Ward RN August 13, 2024 9:16 AM Allergies As of Date: 06/29/2024 (Not on File) Date Reviewed: 05/09/2024 Reviewed by: Shelly Hernandez APRN.WORKER'S COMPENSATION CLAIMS EXAMINER - Fully Assessed Reason for Visit: 06/09 [...] Encounter Status:Closed by MARIANNA WARD on 08/13/24 [facility] CNOVon 06-09-2024 CNOV Office Visit (REIBD) JAZ SANDERS ([id number]) 1995 F Date Time Provider Department 06/09/24 11:00 AM IGNACIO GUY During your visit today, we recorded the following information about you: Nichelle Gonzalez 06/09/2024 12:30 PM Signed IUI specimen released to provider Nichelle Gonzalez June 09, 2024 11:24 AM Nichelle Gonzalez 06/09/2024 12:30 PM Signed IUI Cryobio #: [id number] Washed frozen sample Post: 42 m/ml, 74% [...] Cycle Day: 13 Last menstrual period: 05/28/2024 [place] Protocol: UNIVERSAL PROTOCOL / SAFETY CHECKLIST Procedure [...] was discussed with the patient or authorized product representative. The patient or authorized product representative has agreed to proceed with the sensitive examination. (Sensitive examination includes inspection and/or palpation of the breasts, pelvis, prostate and anorectal regions) Patient declined accounting reconciliation clerk. Vidhi Sheldon MD IUI IUI Date: 06/09/24 [...] stopped. [facility] if not with this IUI prior pt proceeding with another attmept at IUI. Ignacio Guy MD June 09, 2024 12:30 PM SIGNATURE: Vidhi Sheldon MD PATIENT NAME: Jaz Sanders DATE: June 09, 2024 TIME: 12:01 PM Referring Provider: DANIEL HANNA [[id number]] Allergies As of Date: 06/09/2024 (Not on File) Date Reviewed: 05/09/2024 Reviewed by: Shelly Hernandez APRN.WORKER'S COMPENSATION CLAIMS EXAMINER - Fully Assessed Primary Visit Diagnosis:Female infertility [...] Encounter Status:Closed by IGNACIO GUY on 06/09/24 [facility] CNOV Office Visit (ANDRBE ) JAZ SANDERS ([id number]) 1995 F Date Time Provider Department 06/09/24 10:30 AM ANDROLOGY MUSHROOM CUTTER ANDE During your visit today, we recorded the following information about you: Nichelle Gonzalez 06/09/2024 11:48 AM Signed Thaw for IUI Nichelle Gonzalez Referring Provider: DANIEL HANNA [[id number]] Allergies As of Date: 06/09/2024 (Not on File) Date Reviewed: 05/09/2024 Reviewed by: Shelly Hernandez APRN.WORKER'S COMPENSATION CLAIMS EXAMINER - Fully Assessed Primary Visit Diagnosis:Procreative management [...] Encounter Status:Closed by NICHELLE GONZALEZ on 06/09/24 [facility] Coding Summaryon 05-24-2024 Coding Summary HTMLBase 64 XgrlriowZLn6oDt+PGhlYWQ +VC2UQHUhG02eiSOjbZ7lM5 NMTElOSywgQVBQTElOSyIgb uTuNX1huRToFAKg IC8+DG9yMLPaItuoaVRxn3P 2aOG3Z71ekw4iDYnacSE8LY LiVnAahicbj5wqrAg1PJwoC mluOyBt VDFeeT48VYQ2lQ92Sm15dYC xuQZwk8wagUv8SuMpHKWyTH B7mUeaYAumw0HdWJJsJ00xq SXee1U4 VGHciDlsuDCyZfYnrES9aR7 cIWiifsbwi3itlrrkYgc1fe 46uRCdr7H5aAJ3F1RvihD6J GJvbGQg DiqqhFJZnN1zzwjgh5ldyjq mQvYoPMGnRVp8EKb9BAHwvY kmJcSoGE39QRY5QWEbuqFhU 2FsLWFs sVhyDhU8x3M3Vg0BN8SYDva yA5SAQDQMYMencMK+PC90cj 47G0EeSonaDxu2ZCCjKXL1q OT3sG1i ROLzLBgjk0Y5gYS8R5GsddD frg1cz3soKZDyCRqvD46abE Dbe6T0KFIpuIB0SDObyCrfS iBzaG93 Oyc+CCHzgJkvc1SlTvjll8o rs2yerQv5DqkkHHEtxyNqeR jrRSE1j9WaJv6gUUAwoJL7c GB8aT8c IcMvZiH4HOduE748OnMwfVV oPoahV47gV2TwbNR+PHRyPj u2MSHjeXkfRG5aA2KyJIWwc mctbGVm iDziAO6bBKMayhipSDFcmQ9 xAVAtC3z1PdRgUjR1PBhgO2 MpBCKuryntEl90yF6pXuBxU bP0XCnx Z3RcyjE6GVJoxYCyFBglPPH 2B17fz7D4NMBnIIQlTJU9rP S8sB1dvSwgxeuinLGemDqcp mVydGlj YNalCHfuN205TLMxzFohGoZ vZGluZyBEYXRlOiAgMDIvMD YvMjAyNTwvdGQ+PMKxSWU7d WxlPSAn sUCuQZvoQy6cbEeetYtbSI6 xRDZprjqcODXhoB6xPHImqX KglBkdSS4yLAZaflwup208U iAxMHB0 OSRjgBYnO7ChxB5aTlNeJEJ pPESzN8PjuUOoGFmiB629AL wyYiW7AYRdnoKcN0DfLJBag WduOiB0 z8I5Sh9Ni6VckovvB3PkzZQ zHvOrTwbhHGc3R7DiWydyuB I+OV72QGOzWX47IAo4OKM8t WxlPSdi LPSqI2OseV0wOgYiOYPuHXA kOyc+PHRhYmxlIHdpZHRoPS eeHTUrPpEpxMplQU5wMb5hT GVyLWNv dHmgcSBkJaDug5zgLUVnPOl oRB9ifJcgG6NkeAC3HKPks9 k2Iz59Y90fB9UuoWT+PGNvb UE6eMP2 aK1fLoYkGnY4LYhoR835TyW grKHlFmgtd7iqo0fahCb3Ik T3HJDjyrHsnGvtLCC4y0IoP e54E75w IHdpZHRoPSIxNSUiIHZhbGl tpw1guI9qAv6+HRBzoIE0aW A7wK6rEwXtAjZ3YJpgJ470H nRvcCIv Tylmy0zwy3xkwMj3AjDdVUA olrJmoOywBXJ7h9UeHv45X3 ZnfNhro8ShVzi2kv51vRVan 7M4nOS8 L0UjDLDfoduizEKllFnsDK9 eNGHcqsbcJMPgqL8pETQcG5 m5RrDrJgF5ZRkdT9GhgeL5P GJvbGQg LMFqnKDQyF3cbtqeb4zmbvk xZvEsBEKuSGx8TQp9VDAivM emQyOoBRH7JnM6PNX0rJGjj X3vdAzs nrmqlK5ePut+TXI7bYZefLK TPT2xAkemhAX+NEWqVVX8hP sdZPfpSCXzeS4iOUJuI7u1K iAwLjA1 OButM5VqucR1CDUxsFXgZPU xpOCDtE7qhheur4yzdhagGc OmZSYoWDd2YAx0HYVrrWghK iBsZWZ0 QrE4ZTM4tFOtwW1puTyidiy gpJ1sRqh+PcifcUllGHS8HJ h4S7SyWjc4QFUpjAvkME9st GFkZGlu Ba3fpOpmqHkqTG4tPVWawwy rw600RiIhh5uxBIBlqBRlXY wrXVK0Q95sh4O0IBGsAZCpG DM7tUU3 cQ0pqAskfuguoOCvhGxsdtF nxOlfSTtvXJzzR054QONprI hdTgNbVTp0U8JwCog9VJHlk GycMT9v yZBzMZjmKl6jcAqxuEyuCP2 iTGBqywszf409NhBxc0ogEQ CckKYgQDzlFDR4T43dn3V6J CMwMDAw LQB0qFZ3oV5ocOxeaxwyyCQ mdDsgdmVydGljYWwtYWxpZ2 74JCVsaMmdOkIgwNm0X4ZzV bq7HRSd mTmlSS6wgJVbTOfuRn5hiNf fcUyrSL9nKLNssnmiz173Lh Jjn0ddNHCcpTKmFDacOIK6Q 21ii9Y0 ONWfDARdRTW8mTJ3nN8ukCs nbjogbGVmdDsgdmVydGljYW qtCNuiD221EKAjwKlzTnOnm GllbnQg UIicTWc4R4RwAwuacJS+PC9 5JLPqXU69gEWvnFOxe1gmaZ f5AeWlBVByKPI6fIqpWJpui 3JkZXIt I17vsMWxq3I7XOBmjUkitNI iXiXlpTZ8xH3aCUgnwdcwq5 jskdvcQqcvj2xedr48iP58X 29sIHdp ZHRoPSIzMCUiIHZhbGlnbj0 reM2vLl9+MXZmoRN9qNK9iO 2sEWPiCcX4KVdvJ712GrWwu CIvPjxj u5gtt5nevXf2MrC2PRVjrxG goCceHEO7h5FeBt69A90zYA dpZHRoPSIyMCUiIHZhbGlnb n7dkF9f Ii8+NUEvjDM6zCP7jD9mTqS eMvV4GMcaA502OaSgdQRmIv fdI81dR1GkcZZ+GIMjVua9K CBzdHls LZ8mmBUkSRthIm2tLNE9FbP rOpFxTZydS3NdTSWxsvllbu jfwEU1ULGsALOovS74Dy1fw DogMTBw aTUSbN4mooolh9mlefxqQoT tUFQlFSk3PKo3PAYgkVohGb ZtQLM2IhE8WWF2kFSoeH0ni Glnbjog nT8kI1AaOIVwmfhkZl86fY2 mUsDdMnO7DGxzOhb+TUNDQU 5OLCBIRUFUSEVSIEVMSVpBQ kVUSDwv dGQ+DSDgOQN7bDiaWLekPIJ qbM5jFALcK3a7KwDbSdY9KL ykX3BeTRSyiiniKu18qS4eZ iAwLjA1 PJxcQ6OvveU2WIVgpTZjRQv iAAK3V90dh2B9ESScDOPwOE Q0nLD3oI2eqXyeogfvbNUka DsgdmVy jOkeJIhoIJtfK939YMSloTv qQpUcVcY1KoX3SBP2Z2RlBi r2YMDgiMpkDB3mmJPhXHivZ y5fsMyb uNeuHM6mBPYpoebxENUnoS2 qTBDbrMApsGufWX6aTEKvqo ova062QmJxXFM2KBGftPGbA 9SpqS1m HtKeMEUeZBNmW4FobMKuMVo cV647TAgkQnT4IARaizKrB0 YeJBNgiJvePxV3r4R9Hi0oX SBZZWFy czwvdGQ+ABByITI9zOzyOUb wZNZqmD7dGCEcN9k8AqUlFw N3EXclT0BuMEDplvchPy48e V3xAlBf AnP1VYezD0UssaS6GJKgkBC wSYjaNPE6C28zn6M1CWJoXI WvJUR1sXX1xM1lcLcoznqoi GVmdDsg twIksQvuNWgwVLuvJ503QML vcDsnPkZFTUFMRTwvdGQ+PH WmLFM1uGdxVVkhQLPuqH8oN VSpY8e6 TiOqDlY4FOcvP2WrLMUxesq pXb85fD8cNrOyOxD4DPsbG2 AozxD2LLEwiRNjYBffNML5I 28qo0B7 DCMyNVKcFZG6cHP7eK6oxYj nbjogbGVmdDsgdmVydGljYW rdEKvyC596RRUwsMvyNw3TS E40AL84 H1YpKgyrwEAumMC+PHRhYmx lIHdpZHRoPScxMDAlJyBzdH agMD7wNj0rQMPlHIWzhTjor HNlOiBj g7qqJGZeRXptMX0kpSurW1C wnZR1KOJkb1t7Fc42K87gF6 JvdXA+ZJYsaAH4hEM0vD1pK zAlIiB2 NFujE848DrIjwEOcQjcvh4i yd0ugjKu6VtUmIWRuvzKpvF wiLJW1y2PdBx63H82wBLkoA HRoPSIy OQAeAKJdqGbuuy4hdI0sSk4 +EDGcpGK7mTC5xT4kBdMaMn H9SOdhQ141ZpLsrBCrSmrkD 71nW1Gy dXA+NZRaOwn4TKJkmLvrOT3 dwHUsMFstDq0pUXP4ZyMdIg QgHNpzU5EaYHRporcroygbl VE0KRWb KYJarB67Bl5qyCcsEk3qEWA oBGQ0IICsgQXyM6KrhU6vPs BtKSMjCZMkB2XygQBjCSulP 246IGxl SzK4HBQnmrWeP1RrHZQcdDt pPpE8p8W9Pk1GtVxjjJZwIL 4kByVuORv0R5MbKur9OKLzc LyyXA0z wJSjOTclHl2asVrraEchEP5 fWUKqrqeuy927TdLha7brET HkwYMsRLjcWVY5C48hy2R8C CMwMDAw BTU2lXE0gZ9fjXnjcwyxcDK mdDsgdmVydGljYWwtYWxpZ2 95UVBujBweSkAGGjx3G0FuQ vf9QQWi yFbtGM8pyFKiHSbhZg6akNh crQbrBQ3bZNUappclk317Nt Gwk1veRXRqwIMnBEnpZMY7C 85gp9E6 MDNwZUYrDHE3pEM3pN1thKi nbjogbGVmdDsgdmVydGljYW nhLSuyH765QUDcgZhxZq5DT zu0G6Mu Ycj2SICjlFluMR9rfWOeYTp bYe3rtXqsbVbwLD1kCWYkzn jjb707OiDzf9tuPPMjmRNnC GltZXM7 W96gz4V0BYAnIAFwDIV9bLN 5hX5wtGzblnqouMBywCkoew VuzMjmDKirIIzzW306SMQug DsnPlBh eWVyOjwvdGQ+PE29dy25U0K gHgovPhz5RJViVVV9xTQ0nV 8pGQRsNAhzw9X0hLX2T8Own gOxua1y b2x (more content not included)... Normal [facility] Progesterone LCon 05-22-2024 Progesterone LC 7.6 ng/mL Invalid Interpretation Code [facility] Comment on above: Result Comment: Foll icular phase 0.1 - 0.9 Luteal phase 1.8 - 23.9 Ovulation phase 0.1 - 12.0 First trimester 11.0 - 44.3 Second trimester 25.4 - 83.3 Third trimester 58.7 - 214.0 Postmenopausal 0.0 - 0.1 Performed At: [facility] [id number] J Luis Gray PhD Ph:[phone] Performed By: #### 3 [id number] ####[facility] (DEFAULT)[address] [place] [address] Provider Orderson 05-21-2024 Provider Orders [id number]#1.00 [facility] Physical Therapy Note [id number]#1.00O [facility] 25(OH)D3 SerPl-mCncon 2023 25-hydroxyvitamin D3 [Mass/Vol] 28.8 ng/mL Low 31.0-80.0 [facility] Comment on above: Order Comment: Speci men Type: BLOOD SPECIMEN Ordering Facility: [facility] Address: [address] [place] [address] Result Comment: Clas sification of 25 [place] Vitamin D status: Deficiency/Insufficiency: < or = 30 ng/ml. Sufficiency/Optimal Levels: 31-80 ng/mL Toxicity: > 100 ng/mL. Test performed by chemiluminescent immunoassay. Performed By: #### 5 5454-3 #### [facility] CLIA [id number] [address] [place] [address] [place] C. trachomatis+N. gonorrhoea e DNA AC+probe Ql (Unsp spec)on 04-02-2024 C. trachomatis rRNA AC+probe Ql (Unsp spec) Not detected Normal Not detected [facility] Comment on above: Order Comment: Speci men Type: BLOOD SPECIMEN Ordering Facility: [facility] Address: [address] [place] [address] Performed By: #### 5 5454-3 #### [facility] CLIA [id number] [address] [id number] [address] [place] N. gonorrhoeae rRNA AC+probe Ql (Unsp spec) Not detected Normal Not detected [facility] Comment on above: Order Comment: Speci men Type: BLOOD SPECIMEN Ordering Facility: [facility] Address: [address] [place] [address] Performed By: #### 5 5454-3 #### [facility] CLIA [id number] [address] [place] [address] [place] CARRIER SCREEN, EXPANDEDon 06-03-2023 CARRIER SCREEN RESULTS View results in S canned Documents link when available. Normal [facility] Comment on above: Order Comment: Speci men Type: BLOOD SPECIMEN Ordering Facility: [facility] Address: [address] [place] [address] Performed By: #### 5 5454-3 #### [facility] CLIA [id number] [address] [place] [address] [place] CMV IgG Qnon 04-02-2024 CMV IGG QUAL Negative Normal Negative [facility] Comment on above: Order Comment: Speci men Type: BLOOD SPECIMEN Ordering Facility: [facility] Address: [address] [place] [address] Result Comment: No s erological evidence of past exposure to Cytomegalovirus. Cannot exclude recent infection if the specimen collected within 4-6 weeks after infection. Performed By: #### 1 989-3, RUBIGG, 7852-7, 7853-5, VZVG2 #### [facility] CLIA [id number] [address] [place] [address] [place] CMV IgG SerPl-aCncon 024 CMV IgG Qn <0.20 Normal [facility] Comment on above: Order Comment: Speci men Type: BLOOD SPECIMEN Ordering Facility: [facility] Address: [address] [place] [address] Result Comment: The magnitude of the measured result is not indicative of the amount of antibody present. U/mL values are interpreted as follows: Negative <0.6 Equivocal 0.6 to <0.70 Positive >=0.70 Performed By: #### 1 989-3, RUBIGG, 7852-7, 7853-5, VZVG2 #### [facility] CLIA [id number] [address] [place] [address] [place] CMV IgM Qnon 04-02-2024 CMV IGM, QUAL Negative Normal Negative [facility] Comment on above: Order Comment: Speci men Type: BLOOD SPECIMEN Ordering Facility: [facility] Address: [address] [place] [address] Result Comment: No s erological evidence of recent exposure to Cytomegalovirus. Performed By: #### 1 989-3, RUBIGG, 7852-7, 7853-5, VZVG2 #### [facility] CLIA [id number] [address] [place] [address] [place] HBV core Ab Ser Qlon HBV core Ab Ql (S) Negative Normal Negative [facility] Comment on above: Order Comment: Speci [facility] Type: BLOOD SPECIMEN Ordering Facility: [facility] Address: [address] [place] [address] Result Comment: No e vidence of current or past infection with Hepatitis B virus. Should recent infection be suspected, repeat testing may be considered 3-4 weeks after this draw. Performed By: #### 1 6933-4, 5195-3, 00138-3, 93214-3 #### [facility] CLIA [id number] [address] [place] [address] [place] HBV surface Ag Ser Qlon 03-18 HBV surface Ag Ql (S) Negative Normal Negative [facility] Comment on above: [facility] Ordering Facility: [facility] Address: [address] [place] [address] Performed By: #### 1 6933-4, 5195-3, 36568-8, 66539-5 #### [facility] CLIA [id number] [address] [place] [address] [place] HCV Ab Ser Qlon 04-02-2024 HCV Ab Ql (S) Negative Normal Negative [facility] Comment on above: Order Comment: Speci men Type: BLOOD SPECIMEN Ordering Facility: [facility] Address: [address] [place] [address] Result Comment: The result suggests no evidence of active infection with Hepatitis C virus. Should recent infection be suspected, repeat testing may be considered 4-6 weeks after this draw. Performed By: #### 1 6128-1 #### [facility] CLIA [id number] [address] [place] [address] [place] HIV 1+2 Ab IA Qlon HIV 1 and 2 Ab IA.rapid Nom (S/P/Bld) Normal [facility] Comment on above: Order Comment: Speci men Type: BLOOD SPECIMEN Ordering Facility: [facility] Address: [address] [place] [address] Result Comment: Test not indicated. Performed By: #### 1 6933-4, 5195-3, 99412-0, 70574-9 #### [facility] CLIA [id number] [address] [place] [address] [place] HIV 1+2 Ab+HIV1 p24 Ag IA Ql Non-Reactive Normal Nonreactive [facility] Comment on above: Order Comment: Speci men Type: BLOOD SPECIMEN Ordering Facility: [facility] Address: [address] [place] [address] Performed By: #### 1 6933-4, 5195-3, 33023-1, 92346-9 #### [facility] CLIA [id number] [address] [place] [address] [place] HIV immunoassay testing algorithm interpretation (S/P/Bld) [Interp] Normal [facility] Comment on above: Order Comment: Speci men Type: BLOOD SPECIMEN Ordering Facility: [facility] Address: [address] [place] [address] Result Comment: No e vidence of HIV-1 or HIV-2 infection. Should recent infection be suspected, repeat testing may be considered 2-3 weeks after this draw. [place] Rev. Code 3701.243(E): This information has been [...] diagnoses. Performed By: #### 1 6933-4, 5195-3, 48611-7, 71433-1 #### [facility] CLIA [id number] [address] [place] [address] [place] HbA1c (Bld)on 04-02-2024 Average glucose Estimated from glycated hemoglobin (Bld) [Mass/Vol] 85 mg/dL Normal [facility] Comment on above: Order Comment: Speci men Type: BLOOD SPECIMEN Ordering Facility: [facility] Address: [address] [place] [address] Result Comment: eAG: (Estimated average glucose) is a calculated value from HgbA1c and is product representative of the average blood glucose level in the last 2-3 month period. Performed By: #### 5 5454-3 #### [facility] CLIA [id number] [address] [place] [address] [place] HbA1c (Bld) [Mass fraction] 4.6 % Normal 4.3-5.6 [facility] Comment on above: Order Comment: Speci men Type: BLOOD SPECIMEN Ordering Facility: [facility] Address: [address] [place] [address] Result Comment: [place] [place] [employer] guidelines indicate that patients with HgbA1c in the range 5.7-6.4% are at increased risk for development of diabetes, and intervention by lifestyle modification may be beneficial. HgbA1c greater or equal to 6.5% is considered diagnostic of diabetes. Performed By: #### 5 5454-3 #### [facility] CLIA [id number] [address] [place] [address] [place] RUBELLA IGG ANTIBODYon 04-02 RUBELLA IGG AB, QUAL Positive Normal Positive [facility] Comment on above: Order Comment: Speci men Type: BLOOD SPECIMEN Ordering Facility: [facility] Address: [address] [place] [address] Result Comment: The result suggests recent or past exposure to Rubella virus or history of Rubella vaccination. Positive result may also be seen due to presence of passively-transferred antibodies. Please correlate with patient's history. Performed By: #### 1 989-3, RUBIGG, 7852-7, 7853-5, VZVG2 #### [facility] CLIA [id number] [address] [place] [address] [place] Reagin and Treponema pallidu m IgG and IgM [Interp]on 04-02-2024 T. pallidum IgG+IgM IA Ql (S) Non-Reactive Normal Nonreactive [facility] Comment on above: Order Comment: Speci men Type: BLOOD SPECIMEN Ordering Facility: [facility] Address: [address] [place] [address] Performed By: #### 1 6933-4, 5195-3, 54498-5, 15217-7 #### [facility] CLIA [id number] [address] [place] [address] [place] Reagin+T pallidum IgG+IgM Se rPl-Impon 04-02-2024 Reagin and Treponema pallidum IgG and IgM [Interp] Cannot exclude recent Treponemal infection if specimen collected within 7-10 days after appearance of suspect lesions or 2-3 weeks after an exposure. Clinical correlation is required. Normal [facility] Comment on above: Order Comment: Speci men Type: BLOOD SPECIMEN Ordering Facility: [facility] Address: [address] [place] [address] Performed By: #### 1 6933-4, 5195-3, 79574-9, 35128-6 #### [facility] CLIA [id number] [address] [place] [address] [place] TYPE + SCREEN PRENATALon ABO A Normal [facility] Comment on above: Order Comment: Speci men Type: BLOOD SPECIMEN Ordering Facility: [facility] Address: [address] [place] [address] Performed By: #### T SPN #### [facility] CLIA [id number] [address] [place] [address] [place] Rh Nom (Bld) Positive Normal [facility] Comment on above: Order Comment: Speci men Type: BLOOD SPECIMEN Ordering Facility: [facility] Address: [address] [place] [address] Performed By: #### T SPN #### [facility] CLIA [id number] [address] [place] [address] [facility] TYPE AND SCREEN EXPIRATION 04/05/2024 23:59 Normal [facility] Comment on above: Order Comment: Speci men Type: BLOOD SPECIMEN Ordering Facility: [facility] Address: [address] [place] [address] Performed By: #### T SPN #### [facility] CLIA [id number] [address] [place] [id number] [place] VARICELLA ZOSTER IGGon 04-02 VARICELLA ZOSTER IGG, QUAL Positive Normal Positive [facility] Comment on above: Order Comment: Speci men Type: BLOOD SPECIMEN Ordering Facility: [facility] Address: [address] [place] [address] Result Comment: The result suggests recent or past exposure to Varicella-Zoster virus or chickenpox vaccination or zoster vaccination. Positive result may also be seen due to presence of passively-transferred antibodies. Please correlate with patient's history. Performed By: #### 5 5454-3 #### [facility] CLIA [id number] [address] [place] [address] [id number] [place] Coding Summaryon 03-20-2024 Coding Summary HTMLBase 64 SbqseqwxRVd0dIb+PGhlYWQ +RE5UIAWpG55huGWxwG1jX9 NMTElOSywgQVBQTElOSyIgb hHpVP2yxROcZEQn IC8+VD5aAIJwJvoovFOhe9R 4jER9T26kks6vZVmdcFU1PB UgMaFongpeu4gchSc0SPdkL mluOyBt SZItlW75JJU7mG94Dp00cON pjKAkh5zcoBp8UiQnQWOdUE R7hBbvAYezw3UdWSIoW22bk LAce1S3 BKMogEyvyQIzLeQjuGJ3qD1 cJKwkqtzoy9qzjxijEbf7ax 81bIAjb9X9uZD4D6KzriJ2L GJvbGQg UnpbcHBTsC2fnakvz9mtblz tXlPmQMSbAZw6FEw2UGIvbQ bcQfBxLB17SSQ0GKTbfhShD 2FsLWFs gTihPaD6z3Q4Ew4LO8SERwr cM4CBIRVWIMdxgRJ+PC90cj 23D9EeRaxiKgq2HKSvMYU5g VZ1iK6f COJvPSdby0P7lNW4G6OxotH ihi0mv4leFFIfCYptR81hpA Fht7S1ATQwnUE6LHRrzPgmF iBzaG93 Oyc+RCJpuGffh0ZlTffbv5a dp9tcaCd1BcohCXOmozMqwJ fyGGC6u7DyHi6qANRsuCZ4d MH0rX3u KiYhXoF9THlhH932JrXhkOL cHpyoL60pG6NdcHL+PHRyPj g8RZHktYopIO0qW5AsCNFcr mctbGVm dEkaPP7hZVNfgppbYLVmcC5 iAWQaY8g1VxUcDeU6XGsxG7 YqBWOiubgsBj78nP9wOrAiT vB0RErn V9WoezZ8SJHntTOsMBbkYUB 2V43ii2V3OKEjCZUhNHK9oU B2aE2wiJspmipxmXVtcUuic mVydGlj WFfvBWzcU009RTRctShbPwD vZGluZyBEYXRlOiAgMTIvMD MvMjAyNDwvdGQ+XEUsERB7g WxlPSAn yUYyWNkeZn6gvYohhJgwHM6 kHRUuklzwFZWdaH6vNSMinI FmvEnoTO7uNWKflmmas149H iAxMHB0 OKKldFEvY5IzuU6kUiWmPKF wEQPiT8OujMOoHWmzB249YS luQxI1ZPTacyYsQ3XrWWUus WduOiB0 h9A9Ud7Ar2IeysctB9QbtGG oZvAwBuaoTAv8B1RmOknfgJ I+ZX16VEXuCK41DTx9DTD7u WxlPSdi DTPrU1SepE6lWyXjEKLoXYK kOyc+PHRhYmxlIHdpZHRoPS byUKBsXsEyfUsbCE7jUm1tJ GVyLWNv oZnjlTPmUqMla4djAQKvQFv aLX4naUixH1ViwOL6JGCog3 m8Kw79B60sN8PvwRM+PGNvb XC4xPR0 dT9yJtPjBtU4NQkdW645XdI pkMLyQvtkf1sts7djgIq3Jx Y0BOKqfsViuMpnHCC4l5NaH s18A13z IHdpZHRoPSIxNSUiIHZhbGl gxx9mjO8pYr7+LVXopSR1iQ E4sB2wEeFmXtY8UXuaG360W nRvcCIv Svujt7pcx3vusDa5EzDaCDQ dliEqsUwmLPB6w2KiYm84Y6 RnxIvur6ZkRrb4uf79hXKbj 3G2uFN9 I5VvXAVdhikqmCFxdYnwGE6 dGDQamdlaGCIrcD5oLYKcU6 e0YbUoQdQ8ZOzeJ5RnrpM6O GJvbGQg UBFypTTYzH5lksjzd5auhod qWyBmPGIxPJe0OSk5VEYtfM lmZxTuEHV8FsM9FVO3tSSxx P7lpAow igpqbK1hTsq+EWD5vNMzvXU OBY0lJakdlKR+XJNfTEL9vN xuPVycBUUxqK2pRSGzU9p4H iAwLjA1 TWqmG2PmawA2BZVzmWGmELN foIYWqU5hradsn9tsudjcXr YuPUQfILv9ZMp1PFZamVhmN iBsZWZ0 JmL0OXX9kIAoaB6gfFisqld gpH9vXjv+JbdatWxrGUU2VJ k3C9XqCfl0OOHcpJirBK0xl GFkZGlu Jo3izIazcGoxEI5lSIXxxdk nk506OsPsg6asIJRlwTGkGT wkWOQ3V14ot5B4RNEzYOShM NA8uGK6 vS7jxJicfdvbhYSewJfphjV eaTdyRJhpBRxuI758HZAfjI xyOvHkBYm5Q1EmXfq0VOUtz BimOS4e mSDmECfpXv1auCwvePucAZ8 sFGDpxipom555TcRdu8qgOP AcbRQwGDwmWXJ5G84lb3A7G CMwMDAw IWA8uDK2vP5eoDjtetfoaFW mdDsgdmVydGljYWwtYWxpZ2 37QQUuoSubGoLxvEw5P3ZbJ ay7TXQu gJqnLY7jnXQmRXokKu2xqYc vyVnfED9mVBOhoenjv679Ru Chg7ieFYAluBPbPDtfOIV5T 36rv9T9 AJWnBGBaIDL0bAN3tA8zsPr nbjogbGVmdDsgdmVydGljYW msGUhuW920EEOoqQizKuBqu GllbnQg TOhrLWx8S5PuXkyibWE+PC9 8GVEtKW84yIPwcRJyd2zlbS j1ByBmZEUgXRZ2wYchWYbue 3JkZXIt P04irBOkw7O4WZAsdXdusGO yNyZiaLV0gL3uHQqgbyslm3 uquuinJiknj6mibl71zU70L 29sIHdp ZHRoPSIzMCUiIHZhbGlnbj0 olW6jSy1+XADfoFE9rCC3kY 6aBGAkRgB8RCysF061YlUhd CIvPjxj x5ajw3lgfEt1PnB1IREmoaM iaVdmGVR2f7HxXq89Y67kDL dpZHRoPSIyMCUiIHZhbGlnb i0boK6b Ii8+NELqtHQ0xEW6bT6fGqL jZkA8PXbhZ909SmSleZLaWr irE36iZ5JkbFK+QRQwOvu2T CBzdHls VK3mlVRtVUetYq6sRCN7HzD iVtZjENscW5EkAVKceocvwj bybCS1GLRzBWEtkJ32Qc4zz DogMTBw gJHLrC9sniaam8gvspzrVpK qABRgQSu2PAo8UGKiyIqoUs WdUHO3UcY4TCM3nUDehD6ji Glnbjog cV1eC8AdEVBlcnduKp41uF6 xLlEtUpA2ORudDfq+TUNDQU 5OLCBIRUFUSEVSIEVMSVpBQ kVUSDwv dGQ+KQTeGEZ3xWyhFAydFHN kyR0jNCRfL5d9YuHiXzF7RF guN8HmMQRwlcxjGv29tC4hM iAwLjA1 PGngH3MagnW8MWEyhICgRWi oXYX5B51ok4P9BIPwSQUkAZ I4mXD7gS4ceXgvxgxqhXGdx DsgdmVy xQitTAxzQQexQ392IPBtdVt zYwLdVnM3DhT5RAK0G5AmBq s4QFRqsKdxTA7neCJuUJxaX g1ixUnd aRspTJ5eWQYzfiqrQAKktL3 sLUJmkGJqsLdmBG9lLZIych sme244CnFaMFQ0RUXtaHOvS 1WasE1r AyEfJIZkUQBvI3OviKGnALk qC947KDrrNhC2PBDjzvZnR3 IwQNEffUnhSiS9h5J4Fx9bP SBZZWFy czwvdGQ+NWWsJPA5cVdwTKf hXNCwwJ0vGKFgQ6e4BjPaTc H2AIxmR2AeEUNawxhkMa20v F4zOyXr CgS8JVwyM4SayaZ1GYRklXI gKQmbOZB6O65bo5M8QNUuOF OxUQQ0fKP6aE5tdMujorxye GVmdDsg xlJymDatPVkjNEryU232ORC vcDsnPkZFTUFMRTwvdGQ+PH DuWGQ8nZamBBasUZVxmF3oU KXoU3f3 ZiYjWbW0BBimF7GnNVFzwts oIv86wT4iRsHhBuS3RQjzN5 MqydF5UNLeiSGbQMdtOWW0E 42ht6F5 OOVjBQWdFYN0pJJ9wH2xaQn nbjogbGVmdDsgdmVydGljYW cnWRkcA058WROwyOuwMqSkW 3Vycmlu NcGPpGNwNCQkCE61GW26NT5 3H4MuYrqxdILedEQ+PHRhYm xlIHdpZHRoPScxMDAlJyBzd XyeAQ0g Qf8wJAHeUPXyrLkwpKWmSiV qz8kcBMWtHBukXM7qaXdtC9 LhtHW5NDGcd9g1Ta81E02fC 3JvdXA+ AOXwuVK2oNI1oT9oWwShGoE 6DWkuO045VcZsqYHkPcofn0 vfe6lurEj9AqSsZNWeriXzw WduPSJ0 n1GxHj79U28qCQhrKEKlBLU iETDhILXbkEhwnr7fuJ2rRc 8+LCOglZD8pKI9eK2lJmJbW iE0JIuo W368SuWehPGlVivmS18lF0W vdXA+QIEcLhe1EOPdjGimBI 8gxVBuQVkbAj5cIKL7KqQfE jIwMGlu C0NgLBSlvwjycvtauYR0BAY mSLIntH09Kl7hoEusTv0yLN MpUAG4ZLJqbJBbQ2RaxP2qQ iAjMDAw LVUhE9ZlqMTaXRimJ637RCs kPqU4FZVcowJjW8IgESXitW ifJbY8h9M8Ef4CdQgozKWbJ S7tDpBm JWk0N6ErEol8SVNbtOxoZT7 fmALkXDdgJs7gkXfonYjnOA 9kQNMfmvbwz120ThEnh0asL DEwcHQg JWcrONQ1S86bx5B3EVQrGRO jCOW8eMI7eX6jtIcdllfqvP VmdDsgdmVydGljYWwtYWxpZ 246IHRv zRhlGoOCTxn0N6RcYre7MIN idHbbTA1jxHAsWUttGm8ojM maoQwaVH7hTEOqjeogr468B kPvo6we JRFxlTWiKQtwOBG8F50dj6A 5RQLeIVQuNOJ7xGE4hN5hwE lnbjogbGVmdDsgdmVydGljY WwtYWxp G162QWIllZtkDl9LKex6I8O eFxi5FDPujErgWY3lpKNgJJ oaGl7qlPcneKwpSS5tDYYwd ejon713 AcIpj4fuCDJluIJtCLnrCHS 0C47my2A9NKWaSRXmPZX5gL P4lQ7vhSzqtgjctQGaoSuyt mVydGlj FCpkKFhvB176CEBhpEskAjT heWVyOjwvdGQ+PL04kt80I9 UnGmqwSbp8IQXjYME6cMD5t Q8xKRKb [facility] (more content not included)... Normal [facility] Provider Orderson 03-07-2024 Provider Orders [id number] [facility] [id number]#1.00 OTGTIFF Normal [facility] .Auto Diff 1on 02-29-2024 Auto Lagrange % 3 % Normal 12 [facility] Comment on above: Performed By: #### 1 [id number], [id number], [id number] #### [facility] (DEFAULT) [address] [place] [address] Baso Abs# 0.0 x10 Normal 0.0-0.2 [facility] Comment on above: Performed By: #### 1 [id number], 7839418, 0953183 #### [facility] (DEFAULT) [address] [place] [address] Basophils/100 WBC (Bld) 0.3 % Normal 0.2-2.0 [facility] Comment on above: Performed By: #### 1 1302337, 9872805, 8300347 #### [facility] (DEFAULT) [address] [place] [address] Eos Abs# 0.0 x10 Normal 0.0-0.4 [facility] Comment on above: Performed By: #### 1 [id number], 1618592, 0312286 #### [facility] (DEFAULT) [address] [place] [address]5664 Eosinophils/100 WBC (Bld) 0.1 % Low 0.9-4.0 [facility] Comment on above: Performed By: #### 1 0464047, 1481676, 4360944 #### [facility] (DEFAULT) [address] [place] [address] 00825 Lymph Abs# 1.5 x10 Normal 1.3-2.9 [facility] Comment on above: Performed By: #### 1 1632829, 7938103, 8079342 #### [facility] (DEFAULT) [address] [place] [address] 14225 Lymphocytes/100 WBC (Bld) 16 % Normal 14-48 [facility] Comment on above: Performed By: #### 1 0897119, 2040851, 2485043 #### [facility] (DEFAULT) [address] [place] [address] Lagrange Abs# 0.3 x10 Normal 0.0-0.8 [facility] Comment on above: Performed By: #### 1 2263978, 3169349, 0279016 #### [facility] (DEFAULT) [address] [place] [address] Neut Abs# 7.8 x10 Normal 1.5-9.2 [facility] Comment on above: Performed By: #### 1 6167085, 2545735, 1112108 #### [facility] (DEFAULT) [address] [place] [address] Neutrophils/100 WBC (Bld) 81 % Normal 44-88 [facility] Comment on above: Performed By: #### 1 8105382, 6643984, 1208851 #### [facility] (DEFAULT) [address] [place] [address] CBC w/ Auto Diffon 4 Erythrocyte distribution width (RBC) [Ratio] 13.9 % Normal 11.5-15.0 [facility] Comment on above: Performed By: #### 1 7639400, 4209170, 6908109 #### [facility] (DEFAULT) [address] [place] [address] Hematocrit (Bld) [Volume fraction] 45.3 % High 33.7-40.4 [facility] Comment on above: Performed By: #### 1 [id number], 8411460, 1988380 #### [facility] (DEFAULT) [address] [place] [address] Hemoglobin (Bld) [Mass/Vol] 15.5 g/dL Normal 11.3-15.9 [facility] Comment on above: Performed By: #### 1 2756469, 0635086, 5578741 #### [facility] (DEFAULT) [address] [place] [address] Man Diff? Auto Invalid Interpretation Code [facility] Comment on above: Performed By: #### 1 9919451, 8671903, 2922240 #### [facility] (DEFAULT) [address] [place] [address] 28333 MCH (RBC) [Entitic mass] 29 pg Normal 24-34 [facility] Comment on above: Performed By: #### 1 0822323, 2309036, 5625590 #### [facility] (DEFAULT) [address] [place] [address] MCHC (RBC) [Mass/Vol] 34 g/dL Normal 26-37 [facility] Comment on above: Performed By: #### 1 8483782, 1301064, 2251580 #### [facility] (DEFAULT) [address] [place] [address] MCV (RBC) [Entitic vol] 86 fL Normal 81-100 [facility] Comment on above: Performed By: #### 1 3640038, 5567243, 9353350 #### [facility] (DEFAULT) [address] [place] [address] Platelet 213 x10 Normal 138-427 [facility] Comment on above: Performed By: #### 1 6694728, 8824580, 2011473 #### [facility] (DEFAULT) [address] [place] [address] Platelet mean volume (Bld) [Entitic vol] 6.8 fL Normal 6.3-10.2 [facility] Comment on above: Performed By: #### 1 4198539, 8000683, 3150626 #### [facility] (DEFAULT) [address] [place] [address] RBC 5.28 x10 Normal 3.70-5.30 [facility] Comment on above: Performed By: #### 1 3541118, 1734481, 5071833 #### [facility] (DEFAULT) [address] [place] [address] WBC 9.6 x10 Normal 3.5-10.5 [facility] Comment on above: Performed By: #### 1 9733510, 8673344, 7193519 #### [facility] (DEFAULT) [address] [place] [address] Ferritinon 02-29-2024 Ferritin [Mass/Vol] 20.6 ng/mL Normal 12.0-150.0 [facility] Comment on above: Performed By: #### 1 1486826, 8989183, 0238402 #### [facility] (DEFAULT) [address] [place] [address] Iron Levelon 02-29-2024 Iron [Mass/Vol] 61.0 ug/dL Normal 28.0-170.0 [facility] Comment on above: Performed By: #### 9 [id number] ####[facility] (DEFAULT)[address] [place] [address] [id number] 02-28-2024 HNO ID: [id number] Author: IGNACIO GUY MD Service: ? Author [...] for three cycles. They will meet with PUBLIC RELATIONS PLAYER to review the IUI checklist and sign consents. I spent a total of 45 minutes on the date of the service which included preparing to see the patient, rnle-cy-ssor patient care, completing clinical documentation, counseling and educating the patient/family/caregive r, and ordering medications, tests, or procedures. 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 They will meet with PUBLIC RELATIONS PLAYER to review the IUI checklist and sign consents. I spent a total of 45 minutes on the date of the service which included preparing to see the patient, ddpg-gr-uduf patient care, com (more content not included)... Normal [facility] IGP,APTIMA HPV,AGE GDLNon AGE GDLN ACOG TESTING Note . [facility] Comment on above: TESTS RESULT FLAG UN ITS REF RANGE LAB Clinician Provided Cytology Information Source.............Cervix;Endocervix No. of containers..01 ThinPrep Vial Age Algo ACOG Amaya... - 01 FLAG LEGEND: L-Low Normal,H-High Normal,LL-Alert Low,HH-Alert High <-Panic Low,>-Panic High,A-Abnormal,AA-Critical Abnormal Performed at: 01 =G [facility] [place] [address] Dagmar Love MD, IGP, RFX APTIMA HPV ASCU Note . [facility] Comment on above: TESTS RESULT FLAG UN ITS REF RANGE LAB DIAGNOSIS: 02 NEGATIVE FOR INTRAEPITHELIAL LESION OR MALIGNANCY. Specimen adequacy: 02 Satisfactory for evaluation. Endocervical and/or squamous metaplastic cells (endocervical component) are present. Performed by: 02 Edel Sewell, Assistant Store Manager Operations ([facility]) . 02 Note: Note 02 The [...] <-Panic Low,>-Panic High,A-Abnormal,AA-Critical Abnormal Performed at: [address] [place] [address] Dagmar Love MD, Performed at: =G - [facility] [address] [id number] Strip Cutting Machine Operator: Dagmar Love MD, Phone: [phone] Performed at: [facility] [id number] Strip Cutting Machine Operator: Dagmar Love MD, Phone: [phone] BRUSH-SPATULA CERVIX ENDOCERVIX [facility] Coding Summaryon 02-20-2024 Coding Summary HTMLBase 64 GwcqbwodAWv3cWk+PGhlYWQ +TD9JVRFpM98efVKahB9sX0 NMTElOSywgQVBQTElOSyIgb fWnEZ4avIZbJBSh IC8+TV5fBIMnXgoopYYfz5P 0iTC5X20nmd6uAQscfSN5AK JvUkToatklq0curXv3NHrzC mluOyBt ACXxiL59UOI2pB00Kg81kFW xrMBed8ndbVj2ZyUiTFWuJW C4fDirLSioz7IeYMPkV98gt PZbe8U7 ZUGesNbypLLyGdBvwOM3dZ6 nYNqrrspoh5whqqhnIhq2gp 79hYKml8J7xTM0A0OsbkB0Y GJvbGQg WjhmhWTNkO3ikyjme5cjtjz xSyAbKAZzJBf9ZUf8MUXjgV ebAbNuTO35TEA7AFUadfNkE 2FsLWFs iLrgTwV6e3N4Uz1SX9IDQdb eT9QTOZSWONzydWZ+PC90cj 50T1CxPjazOvo2YRJbXVA3n XB5nK7n KMWtHPkhb6G8pWG5E6OysrW wlt7ap8lzQCUpBSrdB53pfP Kix6K4AQLawHQ9NOUeiFzjJ iBzaG93 Oyc+XHJbqDjlf8AeDiopf5k mt9kgpBf1QdapEJLqclWofH rvHJG5z3DuOf1dSZUuzAP4k HD6yJ2m HxZoJeE9QUfqE239XlJvdRQ xYuklE73uG9JxxTY+PHRyPj y3RDBdiZsqAZ8yQ0WyYBSgd mctbGVm yGegPW6iVKToubkvIFNqfU5 mTMEzE9t7KaAhKaQ6NCjdT3 NxLZZlxgjtYy91vV3hNrZlT bC5VTij H5XtsvE8LPAfaZNbNOpoKYK 5N59if6A2ABKxEZLqZXU9wL I5rN2tzKmiasjsgRBjaGyzt mVydGlj NYdxQFcsG101OFPywVruFqG vZGluZyBEYXRlOiAgMTEvMD QvMjAyNDwvdGQ+XVBbCGR3e WxlPSAn yUKkFXyoUu7ywKsncHxgLX6 sUDYfzddmPMUxhU1fCZHixV RotFjkBU5yTNVejcbtx374K iAxMHB0 TBRijWQvG1WkaR5sDjCoHGM zZMXzK0ZafVHuFMisP425TE xhKnM5VVJsatPcY5MqSPQvh WduOiB0 l1O2Af5Yd0EfragtN5MggDQ fJkDuMwjoZEj5E0BrOrptbL I+UY50BGCgCV72PIv3SIK2s WxlPSdi IMLeQ1MgwD3jYsClLRQmJLM kOyc+PHRhYmxlIHdpZHRoPS iiSUExCuPiaGqnEB8bIx1fI GVyLWNv eGaqpIKaXxDhz0kxOCXkHAz nRG4vkJnwZ6MeiEH5JFXhq3 m0Jy18T25uY2HyyLU+PGNvb PU6gJR0 vN5pLpAwZxY4CCgoT345AxC arNPzOhhcn8ggb7kmpZm7Uo V6KECxvdCqdIufJPV3x2UfR i65T14p IHdpZHRoPSIxNSUiIHZhbGl wol4apO0xUd1+VIEvwEI2sZ Q1rH4iMvNiOvP2DOcxI401X nRvcCIv Emxum6vso6ejjHp6DeVnYQD kweZseVikQAE6z4MpQr06B6 FldXrui9LzCin6nl03mOOss 4I6wIO1 N1QgRSUkngynxJYgtXhqDW2 qEWFmcfkmLQChjV0rHMUoC8 e8KwNgIzY5YNknD6JjefY1W GJvbGQg KTQswPFWfR9kzpfsl8lnuvg pPzDkWAHaHIo9LOs6LHXtbM taEqYlLYE0GiE7WBQ5mTUea D8ujYls nnvpqK6jHwy+IEA9xFCmkPX SSA4aTrlfhXM+VITzHBS8mL udDLebWVYbeC7jNYPhV0g0O iAwLjA1 NEveH9TlbzO5JLElhIEgMAS idJHRiU4bdkswh9zhsztdFx BjWBOhWNz5DKl2TAKreIsfZ iBsZWZ0 LpN0ILH7fTGojH1fuNzanhb qoC3bQbw+AiulcLrjEDF5UW j6Y9XtIdt4GUXcoUjtEB1wl GFkZGlu Cp6qiDzczNzbIL3zRZIoznf qf556UzWbd3ppGMBgjUZaCQ ydAGO9S23nd9I3MGPvJZIiV PY7jHN1 qV4mxRusynyiaXPuhYfdijN diElyHDuiZFayJ712AKZreM fwOkGlJGi7B1GsGye7HWZtu DzbDP5w oLEeVAsfVw4jzTmolBzjDV1 fQVWcyceoh898OjEvy1bbEO EyvYZiPRtvLLJ2C04ii6K4O CMwMDAw CMV0hIH4vU2yjQslofgrjAT mdDsgdmVydGljYWwtYWxpZ2 68OCTwgTvjKqLpgHe7P5XkC pl7AKXi xNxwKC9dqIUwLUvhQu4kqPw vmArpAT6mGGKcfghnu609Od Mpn3ccYSBxbJQlZKtnRRF7R 34ha5H5 ENBsBYYaNGT8rQC8fI7thHn nbjogbGVmdDsgdmVydGljYW iaSRyeA006FZRxtZhaXkUpr GllbnQg XEaxAMo0N3XkPaymqCE+PC9 8RWFwTZ11lGBogLHbs3ennF b7EmBkXRKjDDK9tQxbCVpvo 3JkZXIt O65xtQKyx9G5DEOfsJuueDR pAjDjuYF4dZ9xESfncoqvu1 fufvkrQjxnx3nbnx24tY37T 29sIHdp ZHRoPSIzMCUiIHZhbGlnbj0 fgG7nBb2+BXOzqNM1mEW4eJ 1zPEMlHjP2OLrqK380EbNxd CIvPjxj o4wgw9hqvRs6IwL9HFTsgaU hrZhzZGT9v0JmYx81T35tNZ dpZHRoPSIyMCUiIHZhbGlnb n7fqA2c Ii8+GTForGT9rPP3rD1uEfR oPlN9SOxjJ223SnHrkRJmOs xmL62pK4GfbWQ+DPBhUmf5O CBzdHls NV6foRHvCOllSx0hKSI4GzB mJtYkNCccP3EqDAAfvofzmv tolAX4VLFfYAFxxE13Kr7qe DogMTBw jWJVsR8dhoapa8avcwdlLuQ oFZFnXJl4MMd4TDMecOnkMk QeASD3AsA4BCQ6sBMddY0vq Glnbjog lX9iG4PrPBRnblpqSe54fS8 dZtHmGtZ1CBoxMsm+TUNDQU 5OLCBIRUFUSEVSIEVMSVpBQ kVUSDwv dGQ+UKCwHKH8iVnuUCjzMUB pzQ9pVPVcY4g6BpVwJcL9XR qbS0IpYMVjksxbNm79pN9zH iAwLjA1 LKihU3VciyS5FUXwxKBbTKn bWHT3U22bk1B2DPDlFUSnVL V5pLR1xM7lmJvttkrtnDCty DsgdmVy rXadUSqrKEoxQ473XRNueZr tMlZxQvC9JcG9JKT7O4CrIb l6IERkdVhcNC9ygBAuUNsiY b6cuPgz eHncJJ2vTYVnrczvXBZagG1 aWVXncQJjbNifWQ7oMUAlzw vro118LaGiAGT4WWSoaKTuB 6TkiN4u OxKhMXNiQWTuB7RrsMOfOKu uG305IEyfXwK7CVKbjgJyU1 PjXDXgdBdkCoZ8j7Z9Fw3kV CBZZWFy czwvdGQ+NUDkUQJ5kOahFIr lNANydE1uVTHnT7g7EnNcFj I5WGvuS0XdKSUgntlkPf18q M1pQpPu IsP4VIlaC3RppyR8WBVraLR bTThsKKJ1B70ca8S8XBByUB MlFRW3wPK2kP8iyUtlfoqkt GVmdDsg nyJdjLcrZWhmOTwdI614JFT vcDsnPkZFTUFMRTwvdGQ+PH TpXXT3mBqwAPyaTDLkyK2jQ NBeI5a3 LbEmRqV4JWpeA5RmKCSkfni iHi16gO1sUlAtRvC3DJwgZ1 OrgnW4GYMpwJJsMXodABL7X 96qn0B1 XLNeYMPhBKP7iOI3yG6zqOs nbjogbGVmdDsgdmVydGljYW cbDGufP647ULUpiGxmPiLiI 3Vycmlu DfKBvHWgQKGyAM42RD02BE5 2X7WtSnnvcEYvcVI+PHRhYm xlIHdpZHRoPScxMDAlJyBzd WdoEV7d Kf3xTPQiTJBgcBilwIEqCzQ vf1vnPOQtVKmvDH8lvStrS2 CbxUB8PFZzn3b1Pq82E01mO 3JvdXA+ EILodRQ5sDM8tT2dUxKpVjS 0SFaxR150MzLkvXYzUupsg8 vbl4eljVe0YoRkGGVnbjGkq WduPSJ0 n5GeSr86S76zFFjjJWBtSKO qMLOwNLBtvFdppo0ihN7gGx 8+QPByzVD1eCV7eT9mFxAhH zW2HRrr I995LwFviJEnKobvG18qM9M vdXA+BWMcVwx9QYZwwFpkFU 1poLMxNOqvEw7rHTD9ZrQfT jIwMGlu I8MqQFPduquterpkaKM8KKF cOQFdeB95Ll4jkYsnVd8fQD BaXNO3UZUepCDzL8JrwQ9dC iAjMDAw YHJfY1VojCPhVQgyQ919XGx xYoO5DHPgnmVjJ8IiSMPicG crEmC6c7T5Uq1HhIrevSIfP E5mFcMu EPm2U8DcWyo0MBAnlZwmKU2 axRDaFWvwCo4ytKzbdRhhVK 0rIAPxdnenn778ZvWdd5qlQ DEwcHQg PPmhMOU0Q02uj7R2XIRjFXY oDJG5gSV6vR7veIafhrcthL VmdDsgdmVydGljYWwtYWxpZ 246IHRv xFffDzMZJub3E6IsXrf7TGD psNplID2fgRDjYOftUb5dvQ ulaCjmMD2lPIEbjopjd529B tIil7kp QVUheXTtYDhrMBT6E34og7Z 4WTLiFIKjOZP0bZB8pI5qbI lnbjogbGVmdDsgdmVydGljY WwtYWxp F259LBVymBhnFj8WBva2G2C lQdv4RNMxbXqmNZ5kqPCaYM wlNa2yjDvmaKihSO0eMDTfu nrcw687 GqGge0diFOOslSZmEWsnPWL 8G63ln1Z0ZLFqVHNfMYF8uO N2dG6phDslihqgkYEsxWkns mVydGlj VYiqKKtaJ045CCMtiYabAaK heWVyOjwvdGQ+XA95zx20B9 QnUnkfBtm7RTLaFZY9oFM9x [id number] [facility] [place] (more content not included)... Normal [facility] Human papilloma virus 16+18+ 31+33+35+39+45+51+52+56+58+59+66+68 DNA [Presence] in Addi 02-20-2024 HPV 16+18+31+33+35+39+45+5 1+52+56+58+59+66+68 DNA Probe+sig amp Ql (Cvx) Human papilloma virus 16+18+31+33+35+39+45+51 +52+56+58+59+66+68 DNA [Presence] in Cer . [facility] Comment on above: TESTS RESULT FLAG UN ITS REF RANGE LAB DIAGNOSIS: 02 NEGATIVE FOR INTRAEPITHELIAL LESION OR MALIGNANCY.Specimen adequacy: 02 Satisfactory for evaluation. Endocervical and/or squamous metaplastic cells (endocervical component) are present.Performed by: 02 Edel Sewell, Assistant Store Manager Operations (ASCP). 02Note: Note 02 The Pap smear [...] High <-Panic Low,>-Panic High,A-Abnormal,AA-Critical Abnormal -----Performed at:[address] [facility] [address] Dagmar Love MD, Pxptnaypd at: [facility] [id number] Director: Dagmar Love MD, Phone: [phone] at: [facility] [id number] Director: Dagmar Love MD, Phone: [phone] No Panel Informationon 02-19 Reference Lab Test Patient Age Note . [facility] Comment on above: TESTS RESULT FLAG UN ITS REF RANGE LAB Clinician Provided Cytology Information Source.............Cervix;Endocervix No. of containers..01 ThinPrep VialAge Tayler SINHA Amaya... FLAG LEGEND: L-Low Normal,H-High Normal,LL-Alert Low,HH-Alert High <-Panic Low,>-Panic High,A-Abnormal,AA-Critical Abnormal -----Performed at:01 [facility] [address] Dagmar Love MD, .Auto Diff 02-06-2024 Auto [place] % 6 % Normal -12 [facility] Comment on above: Performed By: #### 7 [id number] #### [facility] (DEFAULT) [address] [place] [address] [id number] Baso Abs# 0.0 x10 Normal 0.0-0.2 [facility] Comment on above: Performed By: #### 7 [id number] #### [facility] (DEFAULT) [address] [place] [address] 03844 Basophils/100 WBC (Bld) 0.3 % Normal 0.2-2.0 [facility] Comment on above: Performed By: #### 7 [id number] #### [facility] (DEFAULT) [address] [place] [address] [id number] Eos Abs# 0.2 x10 Normal 0.0-0.4 [facility] Comment on above: Performed By: #### 7 [id number] #### [facility] (DEFAULT) [address] [place] [address] 12978 Eosinophils/100 WBC (Bld) 3.4 % Normal 0.9-4.0 [facility] Comment on above: Performed By: #### 7 [id number] #### [facility] (DEFAULT) [address] [place] [address] 43879 Lymph Abs# 2.4 x10 Normal 1.3-2.9 [facility] Comment on above: Performed By: #### 7 [id number] #### [facility] (DEFAULT) [address] [place] [address] 41779 Lymphocytes/100 WBC (Bld) 34 % Normal 14-48 [facility] Comment on above: Performed By: #### 7 [id number] #### [facility] (DEFAULT) [address] [place] [address] 82513 Lagrange Abs# 0.4 x10 Normal 0.0-0.8 [facility] Comment on above: Performed By: #### 7 [id number] #### [facility] (DEFAULT) [address] [place] [address] 45296 Neut Abs# 4.0 x10 Normal 1.5-9.2 [facility] Comment on above: Performed By: #### 7 [id number] #### [facility] (DEFAULT) [address] [place] [address] 16675 Neutrophils/100 WBC (Bld) 56 % Normal 44-88 [facility] Comment on above: Performed By: #### 7 [id number] #### [facility] (DEFAULT) [address] [place] [address] [id number] CBC w/ Auto Diffon 4 Erythrocyte distribution width (RBC) [Ratio] 14.0 % Normal 11.5-15.0 [facility] Comment on above: Performed By: #### 7 [id number] #### [facility] (DEFAULT) [address] [place] [address] Hematocrit (Bld) [Volume fraction] 41.7 % High 33.7-40.4 [facility] Comment on above: Performed By: #### 7 [id number] #### [facility] (DEFAULT) [address] [place] [address] Hemoglobin (Bld) [Mass/Vol] 14.1 g/dL Normal 11.3-15.9 [facility] Comment on above: Performed By: #### 7 [id number] #### [facility] (DEFAULT) [address] [place] [address] 21016 Man Diff? Auto Invalid Interpretation Code [facility] Comment on above: Performed By: #### 7 [id number] #### [facility] (DEFAULT) [address] [place] [address] 97495 MCH (RBC) [Entitic mass] 29 pg Normal 24-34 [facility] Comment on above: Performed By: #### 7 [id number] #### [facility] (DEFAULT) [address] [place] [address] 28027 MCHC (RBC) [Mass/Vol] 34 g/dL Normal 26-37 [facility] Comment on above: Performed By: #### 7 [id number] #### [facility] (DEFAULT) [address] [place] [address] [id number] MCV (RBC) [Entitic vol] 86 fL Normal 81-100 [facility] Comment on above: Performed By: #### 7 [id number] #### [facility] (DEFAULT) [address] [place] [address] 36640 Platelet 196 x10 Normal 138-427 [facility] Comment on above: Performed By: #### 7 [id number] #### [facility] (DEFAULT) [address] [place] [address] 96858 Platelet mean volume (Bld) [Entitic vol] 6.8 fL Normal 6.3-10.2 [facility] Comment on above: Performed By: #### 7 [id number] #### [facility] (DEFAULT) [address] [place] [address] RBC 4.84 x10 Normal 3.70-5.30 [facility] Comment on above: Performed By: #### 7 [id number] #### [facility] (DEFAULT) [address] [place] [address] 75170 WBC 7.1 x10 Normal 3.5-10.5 [facility] Comment on above: Performed By: #### 7 [id number] #### [facility] (DEFAULT) [address] [place] [address] Ferritinon 02-06-2024 Ferritin [Mass/Vol] 15.8 ng/mL Normal 12.0-150.0 [facility] Comment on above: Performed By: #### 1 [id number] #### [facility] (DEFAULT) [address] [place] [address] [id number] Iron Profileon 02-06-2024 Iron [Mass/Vol] 72.0 ug/dL Normal 28.0-170.0 [facility] Comment on above: Performed By: #### 1 [id number] #### [facility] (DEFAULT) [address] [place] [address] Iron Sat 19 % Low 20-55 [facility] Comment on above: Performed By: #### 1 [id number] #### [facility] (DEFAULT) [address] [place] [address] TIBC 384 mcg/dL Normal 250-400 [facility] Comment on above: Performed By: #### 1 [id number] #### [facility] (DEFAULT) [address] [place] [address] Transferrin [Mass/Vol] 274.6 mg/dL Normal 192.0-382.0 [facility] Comment on above: Performed By: #### 1 [id number] #### [facility] (DEFAULT) [address] [place] [address] 49472 Coding Summaryon 12-11-2023 Coding Summary HTMLBase 64 MrfpgjxqZAu8gCl+PGhlYWQ +YZ7HGVZdV84ugGKqqW8wR1 NMTElOSywgQVBQTElOSyIgb hZrJE5pgYGlIQSo IC8+RU3oZWYhYolcmHKbc7Z 6kPR9T39hir6zHUmwoLF0MK XcTaHhswvdy2qwoOp9LRdgX mluOyBt XOMwdG38OMX0cT03Ji81dPP wpPYjv8lcxBt7CkNsEBZqRB E2eXbvSXyeu6WaUJBuP69qj OEco2W8 AJYplQcpgHYqUjQkzAV3yB1 vPDoqwlcxw7tisrjmTyu5tx 20dBMbg1Q5eUZ8S6SczgS5Q GJvbGQg ChaylBHKeR5xlmesh0btuqt zOrWsSMTaNLy0REg7QWPngV veInLbAN87ERU3XMPfriSiA 2FsLWFs gOdiSpU0n4R0Es3UA7EJMhy wV4UBLGIFNIhadZW+PC90cj 30Z3PbYowpRlp0JJRoNYK8u JM2kC3a WEFuMYayi4J9sZC2V9SiqcK bjy9zt2jkFHLnYWzkL93ioB Xix7Y7PPIioTG3KARquYokE iBzaG93 Oyc+WFCqcVbli9EvPfnbs4b ny5mjeZs4GtdaTSCzkgMnlT tdVNG9x3QeTw7oKJJpzTF7h BQ2aJ5b PzLiZlD0BMoaF056BmWkvRJ cLtyvY66yU7IsqCC+PHRyPj e6ZNAnpTxbRF2lL5RmVVNwn mctbGVm eHimLE4cFGPdlhxdNKJioG5 eWDJjA2w9IfEoKyA6QDgjJ9 JcVVZzszasMa18iI0qHsPtB qZ9FZeh Z3WfcoF9PIJerEBmJYwkSQH 5U25tu7L5UDJoLUCqPHN2wZ J5nZ0sqWeiiclkoEUruRjvs mVydGlj TMefJGmuS068FKIebEvoVxX vZGluZyBEYXRlOiAgMDgvMj UvMjAyNDwvdGQ+PPBiVIA9m WxlPSAn aFDiMYcbNa8zzKhrhKjcQQ6 fBKRvutxxZTTuaC5nFINfkT LxjCpsPC9xKHUjmlcmz832W iAxMHB0 CULvgXAlG9UcbW3oCtZvSKD sPITkO7SwqCQcSSfnZ249WE cgIxO4JLFeebYiV4FzMYKpc WduOiB0 d9O6Xp7Ct4BniibkC0QcpGB wTgPyBifnEIk7U9ZbGexhbV I+RA05GUYeIB64FHx7FNI5b WxlPSdi VRYeR6KmvL4tRhElHFAzBOH kOyc+PHRhYmxlIHdpZHRoPS iaMJHqFlKdxVerUG4cHg3sD GVyLWNv wJvmcZFoKkKwk6mtGQXgCQt lXC6mwMmsU0CcaVC5SPOui4 c0Lr70K85cK6RlxXJ+PGNvb QP5sVX7 gC7qWjRtQcP7XXzvZ843EdE pgRCkMlpov4scc2ttjHx2Dk T2UXUwfgZzyBglDDX2b0UkA z63I14a IHdpZHRoPSIxNSUiIHZhbGl tik0fyA3yDv9+JSXgdLR4kO Y3yA7zKdXfJpK9OGegN535U nRvcCIv Npoqp9tuj7hweQm5NwPnDUU pykDafGupIXZ0z1RrUy75N0 PapOmnf2UcWfr6it37yZKzm 8V2aHQ2 C3TfHYUfgnqtsESnyDjuEE8 iWBRflokhLVKclE3zTOUhG4 n7OrDnAzC0EKxbC1VptxK5G GJvbGQg ISLhdBPQmX6bomirz7wxzdi hPpPvCSUnSIp7TWc6LJAnyF lbKeWcZMU0HvZ8DPV1pDFci O5loKur fxyuqZ0cEff+MMM1sTDhaPS SAO7cXfrbvDB+DCQkACI2yP rbAYufGGRgkO7qQAAuS9w2B iAwLjA1 BBltP7UhidX7WMUblWUbANI cxOSPsM2zrzxfe0hhvkjeRu AyXHHePYm9WLd1QNXvwMpeR iBsZWZ0 AdY1HGK0gYIprE4shBaxjus vjQ3fZep+WsudvIioUXU3JH h1D9FtXnj3BIDrbIojHC7jo GFkZGlu Tk0zjMzpfUkrNO9vMZMgbox so251UjAde2nhSGSxtGFfZV vyMXG2S75ep5Z5ZTOvLBDwN NY9hJI9 hL6yhAeoykjjgLNgmOxfinQ xxWltRCpkZUndY158LTWagG kaDkUiRTa8C0EvWsi2OBXeo HpsKR3j yDXwAVhcPr3yaVfdfXzsRP3 tMBEguiyyw217MwKcb6ciXZ YqtIAqPGdcOQF2M98wo7Z0H CMwMDAw MDH9qSE1qG3dzVfdwpwpeHZ mdDsgdmVydGljYWwtYWxpZ2 83CBZvnVqsLlHxtYm6E0BtE ja4UYOt wUwoDA7lfIMaJCtnQb1aaVp gpDjxFK1oUEEtxyvvx643Gx Huc4cfHUTkbURbPSgdSCE5L 84hf8G9 OQSeMWOxLMY8fYQ5qY3liHc nbjogbGVmdDsgdmVydGljYW oyNPtlG275NMYtqOayUiTiz GllbnQg GGpgDVy2O0BoIhkgyWM+PC9 0MQUrQF09tCNstVFgr5mouC u0MeGaQFIeAPH2xMvrOFtih 3JkZXIt D73gtJEyt5U8ZQEzdEeiaSW tUkOwgKD4iM8uXTzbrmrpi4 vkyubgEgxow8roqc33eU38H 29sIHdp ZHRoPSIzMCUiIHZhbGlnbj0 nkJ7oKm9+UDOvrRH1rYI6dK 5cUMCuOrM8NDogL388JqSnr CIvPjxj b6huq2kbtIt1JtK5XRKhqwZ nuSyrRJR1b6GdNl07T62aDK dpZHRoPSIyMCUiIHZhbGlnb z7nkS0e Ii8+XRBpbUN2kMK8iN3hXpW gAzN0VOjxT788JzYwgTCtEe drN52mK7RrtST+DTUeKfg3E CBzdHls BA2omEIsYXipRa9rSYP1RkF xQqRwFBdoX9UsKVAmpopwcm rawRN9YOGgOMTywU22Hw2wo DogMTBw lOTGrX6mshybf2erlrvvBpI lNCJrRHl3YBx3MFOnwUpnGz PrCRB6OwK2MYZ7uXOopY4bq Glnbjog aH7rZ1LvFGCgearwMl68xM2 zUsBqVvS4WKovYmx+TUNDQU 5OLCBIRUFUSEVSIEVMSVpBQ kVUSDwv dGQ+EFAyWZD6fNqbZAnpFXU tzJ1pZULfI1w2BjRfLwB8ML ilH1OrUOPsghlwNe79yF8dI iAwLjA1 XPzsQ2OxfwS0UAWpoZPbZJx sAMI3T45hm2S8RFEsGZQhBQ F4jYI3zC2byGmgwxiepDNrg DsgdmVy uMnoDSrdNFdrN480GCHciYb yUtExOzN4TkO6CWQ9B6ZrVq i5XEGdgYflAV1ryXMbVIepL v2pgVdj dZbhHS3cQFRctoddKDAalD6 iBDLyvWZniFqxIS4vXHElsl rhg240GsRuFOS9HNQzkMGfR 4VizA6d BtNkRZAlMAPkA2CtxOAeEPa wW854VPhxKnF2HVNmlqKdZ4 NqYJZphYtnRjO2c4Q1Ps3gO CBZZWFy czwvdGQ+RMNnEAS4kAxgODr jUDVixM3eVNCmX8q9XaLuKv T5ZKgiC7WhNQVxvuvyKq50q J0xZlSv SeR5GGxiA0FjwdD7APArsJJ iXQocQKT5J18zy5E3NZBsXY MkDBM7iWN6tB2riNlowdohu GVmdDsg yaOgsOcdIWzzBSspO887NLT vcDsnPkZFTUFMRTwvdGQ+PH YxRFS1yNlpYSavDCTjdL7zX PAuQ0r5 KkXbTnI3CLqdH6LbMHPntua rGj63zH9xAoFmQpM7ROefR2 TdefQ6GHZdyESkWXnkCRP8W 78jx4T0 AHIxCUXoTIE3cAD0vQ9giUp nbjogbGVmdDsgdmVydGljYW bbCRsdF079CIXuqChqPrCuY 3Vycmlu TgWDkBAnHUHcHD16LR10OQ3 2V2IaArshxCXiwNY+PHRhYm xlIHdpZHRoPScxMDAlJyBzd DgtWA7z Yj0wTLEmCBTtbAagrEWvDxV hk1ruKNSkFVatNU2ziIhzH4 UvbFQ7OLEge9u2Yb73X53dM 3JvdXA+ RVJgyZB2iIT4yN0hBrQgTzH 5HDjbB702MqIpiUEuZpetg5 tqe1rieMx0DfEjBHSzjhHpf WduPSJ0 x9MtOd01E73aBLqaHJQfPLL cNSKdWWOirVwijs1msD1dFz 8+KOSayRQ4eMH5rN4hThBeK hQ1XLsg W134UkWaxFZpLvyeW18sU2Y vdXA+CVNxOib4BHXeiTehWO 7vlSDnPXqvGk3tARZ9CnGnH jIwMGlu Z7NpFLVbtrvzbowxsUR3UHL zNPWygZ79Sf9dqLqwYq3eOZ SuJTX6FTWesTOoC8JdpI1qK iAjMDAw OYBuM7GufKPpFZfvS510LZr xEhG5QTQfyvByQ5DuRQQsaF vfPrB9e4J2Rs6RiQnieDHoD T5nHuUz FUv1P5RqWju5MBFjrVmlBN2 jzQUtRXjrIg1niAloxQjuFN 3vKPAfvuytt733NdIvn1bmD DEwcHQg KSjgETC2K95gl8C2EJHoDNS cZGB7uED9rQ9bvTqyhvgdvE VmdDsgdmVydGljYWwtYWxpZ 246IHRv xBsgYjXCIbg3X2RxRmf8ORY taZodWA5ssMNkFLgnPv9pwN htwBthYR0aDUSihxdpi006K wNqs4am IIQvdVLhEHgtLJB3G97ao7U 0OJOnUFBiHHR2bFC3iE1lqP lnbjogbGVmdDsgdmVydGljY WwtYWxp Y056ZSEihIpjHi0HAhm5Z6O jBzz8QSOprFvjSO4dgZGfIA qiRk5cnJtvmSabYX8gDNOhg xkyl724 YdCmw0juBIZpsACzYRnkVXF 0H74bd0G1RHTgTTEyCBY7yA I3dL4geBvvbpufdRAvfFslk mVydGlj TKieYWtyI958IUKrpSoyOaF heWVyOjwvdGQ+HM46nm08I9 VmLzpxFjk9BZDxELL1lKL3h J5nTZZd c (more content not included)... Normal [facility] Amphetamine Screen Ql (U)Ord ered By: Andry Lacy on 12-07-2023 Amphetamines Ql (U) Amphetamines screen Negativ e [facility] Amphetamines Ql (U) Negative Negative [facility] Barbiturates [Presence] in U rine by Screen methodOrdered By: Andry Lacy on 12-07-2023 Barbiturates Screen Ql (U) Negative Negative [facility] Barbiturates Screen Ql (U) Barbiturates [Presence] in Urine by Screen method Negative [facility] Benzodiazepines Screen Ql (U )Ordered By: Andry Lacy on 12-07-2023 Benzodiazepines Ql (U) Positive High Negative [facility] Benzodiazepines Ql (U) Benzodiazepines [Presence] in Urine by Screen method High Negative [facility] Benzoylecgonine [Presence] i n Urine by Screen methodOrdered By: Andry Lacy on 12-07-2023 Benzoylecgonine Screen Ql (U) Negative Negative [facility] Benzoylecgonine Screen Ql (U) Benzoylecgonine [Presence] in Urine by Screen method Negative [facility] Cannabinoids [Presence] in U rine by Screen methodOrdered By: Andry Lacy on 12-07-2023 Cannabinoids Screen Ql (U) Positive High Negative [facility] Comment on above: These are unconfirme d results and should not be used for legal purposes. Drug Cut-Off Concentration: AMPH 1000 ng/mL LUIS ANTONIO 200 ng/mL JOHN 200 ng/mL COCM 300 ng/mL OP 300 ng/mL PCP 25 ng/mL THC 20 ng/mL Cannabinoids Screen Ql (U) Cannabinoids [Presence] in Urine by Screen method High Negative [facility] Comment on above: These are unconfirme d results and should not be used for legal purposes. Drug Cut-Off Concentration: AMPH 1000 ng/mL LUIS ANTONIO 200 ng/mL JOHN 200 ng/mL COCM 300 ng/mL OP 300 ng/mL PCP 25 ng/mL THC 20 ng/mL HCG ( test) IA.rapi d Ql (U)Ordered By: nAdry Lacy on 12-07-2023 HCG ( test) Ql (U) Negative [facility] HCG ( test) Ql (U) Urine human chorionic gonadotropin (hCG) detection by immunoassay [facility] Opiates [Presence] in Urine by Screen methodOrdered By: Andry Lacy on 12-07-2023 Opiates Screen Ql (U) Negative Negative [facility] Opiates Screen Ql (U) Opiates [Presence] in Urine by Screen method Negative [facility] Phencyclidine Screen Ql (U)O rdered By: Andry Lacy on 12-07-2023 Phencyclidine Ql (U) Negative Negative [facility] Phencyclidine Ql (U) Phencyclidine [Presence] in Urine by Screen method Negative [facility] Alanine aminotransferase [En zymatic activity/volume] in Serum or PlasmaOrdered By: Romeo Santana on 11-28-2023 ALT [Catalytic activity/Vol] 14 U/L 7-52 [facility] Albumin [Mass/volume] in Ser um or Plasma by Bromocresol green (BCG) dye binding methoOrdered By: Romeo Santana on 11-28-2023 Albumin BCG dye [Mass/Vol] 4.6 g/dL 3.5-5.7 [facility] Alkaline phosphatase [Enzyma tic activity/volume] in Serum or PlasmaOrdered By: Romeo Santana on 11-28-2023 ALP [Catalytic activity/Vol] 41 U/L 34-104 [facility] Aspartate aminotransferase [ Enzymatic activity/volume] in Serum or PlasmaOrdered By: Romeo Santana on 11-28-2023 AST [Catalytic activity/Vol] 13 U/L 13-39 [facility] Basophils Auto (Bld) [#/Vol] Ordered By: Romeo Santana on 11-28-2023 Basophils (Bld) [#/Vol] 0.0 10*3/uL 0.0-0.2 [facility] Basophils/100 WBC Auto (Bld) Ordered By: Romeo Santana on 11-28-2023 Basophils/100 WBC (Bld) 0.3 % . [facility] Bilirubin.total [Mass/volume ] in Serum or PlasmaOrdered By: Romeo Santana on 11-28-2023 Bilirubin [Mass/Vol] 0.5 mg/dL 0.3-1.0 [facility] Calcium [Mass/volume] in Ser um or PlasmaOrdered By: Romeo Santana on 11-28-2023 Calcium [Mass/Vol] 9.4 mg/dL 8.6-10.3 [facility] Carbon dioxide, total [Moles /volume] in Serum or PlasmaOrdered By: Romeo Santana on 11-28-2023 CO2 [Moles/Vol] 27.8 mmol/L 21.0-31.0 [facility] Chloride [Moles/volume] in S betty or PlasmaOrdered By: Romeo Santana on 11-28-2023 Chloride [Moles/Vol] 106 mmol/L 98-107 [facility] Creatinine [Mass/volume] in Serum or PlasmaOrdered By: Romeo Santana on 11-28-2023 Creatinine [Mass/Vol] 0.62 mg/dL 0.60-1.20 [facility] Eosinophils Auto (Bld) [#/Vo l]Ordered By: Romeo Santana on 11-28-2023 Eosinophils (Bld) [#/Vol] 0.2 10*3/uL 0.0-0.45 [facility] Eosinophils/100 WBC Auto (Bl d)Ordered By: Romeo Santana on 11-28-2023 Eosinophils/100 WBC (Bld) 3.5 % . [facility] Erythrocyte distribution wid th Auto (RBC) [Ratio]Ordered By: Romeo Santana on 11-28-2023 Erythrocyte distribution width (RBC) [Ratio] 14.0 % 11.9-15.3 [facility] Globulin Calc (S) [Mass/Vol] Ordered By: Romeo Santana on 11-28-2023 Globulin (S) [Mass/Vol] 2.0 g/dL [facility] Glucose [Mass/volume] in Ser um or PlasmaOrdered By: Romeo Santana on 11-28-2023 Glucose [Mass/Vol] 76 mg/dL 70-100 [facility] Hematocrit Auto (Bld) [Volum e fraction]Ordered By: Romeo Santana on 11-28-2023 Hematocrit (Bld) [Volume fraction] 40.1 % 34.0-46.4 [facility] Hemoglobin [Mass/volume] in BloodOrdered By: Romeo Santana on 11-28-2023 Hemoglobin (Bld) [Mass/Vol] 13.6 g/dL 11.8-15.4 [facility] Leukocytes [#/volume] correc terry for nucleated erythrocytes in Blood by Automated counOrdered By: Romeo Santana on 11-28-2023 WBC corrected for nucl RBC Auto (Bld) [#/Vol] 6.4 10*3/uL 3.8-11.6 [facility] Lymphocytes Auto (Bld) [#/Vo l]Ordered By: Romeo Santana on 11-28-2023 Lymphocytes (Bld) [#/Vol] 2.4 10*3/uL 1.00-4.8 [facility] Lymphocytes/100 WBC Auto (Bl d)Ordered By: Romeo Santana on 11-28-2023 Lymphocytes/100 WBC (Bld) 38.3 % . [facility] MCH Auto (RBC) [Entitic mass ]Ordered By: Romeo Santana on 11-28-2023 MCH (RBC) [Entitic mass] 29.3 pg 24.7-34.3 [facility] MCHC Auto (RBC) [Mass/Vol]Or dered By: Romeo Santana on 11-28-2023 MCHC (RBC) [Mass/Vol] 33.8 g/dL 32.0-35.0 [facility] MCV Auto (RBC) [Entitic vol] Ordered By: Romeo Santana on 11-28-2023 MCV (RBC) [Entitic vol] 86.7 fL 80-100 [facility] Monocytes Auto (Bld) [#/Vol] Ordered By: Romeo Santana on 11-28-2023 Monocytes (Bld) [#/Vol] 0.4 10*3/uL 0.0-0.8 [facility] Monocytes/100 WBC Auto (Bld) Ordered By: Romeo Santana on 11-28-2023 Monocytes/100 WBC (Bld) 5.8 % . [facility] Neutrophils Auto (Bld) [#/Vo l]Ordered By: Romeo Santana on 11-28-2023 Neutrophils (Bld) [#/Vol] 3.3 10*3/uL 1.8-7.7 [facility] Neutrophils/100 WBC Auto (Bl d)Ordered By: Romeo Santana on 11-28-2023 Neutrophils/100 WBC (Bld) 52.1 % . [facility] No Panel InformationOrdered By: Romeo Santana on 11-28-2023 Estimated GFR (CKD-EPI) > 60.0 mL/Min [facility] Creatinine Clearance (Chem N/A [facility] Nucleated erythrocytes [Pres ence] in Blood by Automated countOrdered By: Romeo Santana on 11-28-2023 Nucleated RBC Auto Ql (Bld) 0.0 /100{WBC} 0-0.5 [facility] Platelet mean volume Auto (B ld) [Entitic vol]Ordered By: Romeo Santana on 11-28-2023 Platelet mean volume (Bld) [Entitic vol] 6.8 fL 6.3-10.7 [facility] Platelets Auto (Bld) [#/Vol] Ordered By: Romeo Santana on 11-28-2023 Platelets (Bld) [#/Vol] 159 10*3/uL 150-450 [facility] Potassium [Moles/volume] in Serum or PlasmaOrdered By: Romeo Santana on 11-28-2023 Potassium [Moles/Vol] 4.2 mmol/L 3.5-5.1 [facility] Protein [Mass/volume] in Ser um or PlasmaOrdered By: Romeo Santana on 11-28-2023 Protein [Mass/Vol] 6.6 g/dL 6.4-8.9 [facility] RBC Auto (Bld) [#/Vol]Ordere d By: Romeo Santana on 11-28-2023 RBC (Bld) [#/Vol] 4.63 10*6/uL 3.60-5.00 [facility] Serum or plasma albumin/glob ulin mass ratioOrdered By: Romeo Santana on 11-28-2023 Albumin/Globulin [Mass ratio] 2.3 {ratio} [facility] Serum or plasma anion gap de terminationOrdered By: Romeo Santana on 11-28-2023 Anion gap [Moles/Vol] 10.4 mmol/L 6.0-15.0 [facility] Sodium [Moles/volume] in Ser um or PlasmaOrdered By: Romeo Santana on 11-28-2023 Sodium [Moles/Vol] 140 mmol/L 136-145 [facility] Urea nitrogen [Mass/volume] in Serum or PlasmaOrdered By: Romeo Santana on 11-28-2023 Urea nitrogen [Mass/Vol] 7 mg/dL 7-25 [facility] WBC Auto (Bld) [#/Vol]Ordere d By: Romeo Santana on 11-28-2023 WBC (Bld) [#/Vol] 6.4 10*3/uL 3.8-11.6 [facility] Coding Summaryon 11-14-2023 Coding Summary HTMLBase 64 YnrpndylJBw2fXi+PGhlYWQ +QO2YLAImE68gyWMzzZ1lS1 NMTElOSywgQVBQTElOSyIgb hVtYA1jtFPcBIHz IC8+KL1rIXOgSgzwgJLyi0B 7gQH1S95gei8hMWewlZY4GG BvKlXigiwmv6qjiJn1CYuvF mluOyBt EXDjjQ59KMG0fU68Vn50wQW wzJCmt7nwnQb0SfHxBULyUU M5kPfcLTvom2AkKCYtB16en XZpr2T3 JJEjjCcduVVgZfNzjSS4tN2 nBZwjjhgoh6gnhqzuWlx7dp 55eFPhp9A9mGZ7W4YylpG9W GJvbGQg IzqqrRPZlU1qglola7pyapj oEnOhPOEyEYg5NUu3IZOujJ ahNpQrHP51OUJ9PNKmhtCwO 2FsLWFs nWrqEwC2j4V4Dc0SS7HDZdy dX8IJFFMFQYugaHZ+PC90cj 36S2JbCjubUiq9EKNkRJX5c QR6cC6g FESwIAxik0K8eCQ8V7DrflI zdt0nq8faHTHzVYwaH20veN Osh5Y0CNQkdTU2BUWxwQhlU iBzaG93 Oyc+GYDbyEpai6GoDqjxa7w um0xgmMt2DferZMIiwdHpeW uqYCG7g9WoVn6iVFUaoRN2a TD4iJ0a YbToWbA5FIrmT218YyXbaAL eXekoX39zF6DmvGX+PHRyPj i0JVQouOuuJY5gS7PyLKXqt mctbGVm rUzaVC0mFUTmouyhYZGjdV2 kGVGsR3d8GwZiYeA7ZFizG5 BbLTNxsdzoNi96gX6wUzJiO aU1TFdw P5FuzqP6NDRdqIQcTVnqGJX 0J20ry8V0BWJiWIXoOXJ9lE C3eE9ynNcbdvnqoLXwhGvcx mVydGlj XGxgKGclQ214ZCZhoPcuBnU vZGluZyBEYXRlOiAgMDcvMj kvMjAyNDwvdGQ+TOViKLP9h WxlPSAn qHApDWwpXq9yoVpgmKjqDN6 yILHkpaxfLWWcsL2gJNJzwY FbwNouPD7zROTolyfoy545O iAxMHB0 TBYvfFMmO0BykY7tHiCcBCG jLXWmB7AghCTyYMwqI027RO xiFtD1TASsxgXtM0MoESAjd WduOiB0 d9C8Oy1Aq0TuaygcX0UucBY vYxHiYvlpXOh0N7TuTqndlE I+GS82BARzQC67MFr7FFE9c WxlPSdi POOkC7YqsQ1gVsTcCYYlOHI kOyc+PHRhYmxlIHdpZHRoPS miWKCdFhEkqEgoWV1iJe8iS GVyLWNv lTfqwXQoWbVmo3yhENYzLJu fFG3vuJweC1PbhQZ1QQOvf1 i9Kl50S38oM4HgdDG+PGNvb KC5nBV7 rQ7jJsHkCaE6TFanN957UgT suCKbYmqmu1sqz1fjfZs6Su F2XFCmirLszUycGAT3o1GpA x69H10k IHdpZHRoPSIxNSUiIHZhbGl fbk3bpY5rKc4+RBZluRJ6yP I0uE7uOuFsYsJ4HJigK839R nRvcCIv Icion0jvk9mjsQo5YoZpRLK qqkIxdLodSXT6n3IfWo32O4 TyvNadv0KjStx5yq08yOTwc 0F8rTB1 B2ArAOBvorsnfIAzlRhbMI9 vJKLvvxsvPQHzmE0rNLCcE4 v0OoEvZdF7HFirF4GlnoB1L GJvbGQg IQXjrEZNsB5edkguq3mveiu sDcNbZDWqLCe8FSw6HYAreJ cbHaEnUQA8RqU2LKP6kADwh U9bvMfc zozagG3sFnl+JPC7bYUydOE QMZ3eRrymyMV+FFQdFSS2gM hqSXocEGOibN9xONToD7l6N iAwLjA1 SHfrQ1BhrqL1VUCldJGmMPC gmLFLnO9ekrsps9aikmvjPq PeALJyGRb2GIa5PMUirXjbL iBsZWZ0 IqR6UXS6rJOrgK8wvTedsni fwA7mToy+VhlvhJzzRGO7TD e8E8TvFtx5LYBnuObvUJ0ug GFkZGlu Wq9eySdhrZjxRE2aRLNvjsx wr098CbJwd2ktFDYgqWHvKF xhJKV0H44fw3M9XTRcSOVsW HS5nFT6 gE2mtRtslsdslNLkpMseyfR zfPwaDNzcZBnfJ940KOZfuG fjCqCvKTn8B2JeUwa0ZTXcp KvvMK1g lNLvSIfzPu0qzUdfzCtlNG9 oCTWfdqbtj362BxFmd5cwNL XloMJzZDzrDCL7C56ln0Y7Q CMwMDAw SDM5iPL5sA4wwZmcozjiuAG mdDsgdmVydGljYWwtYWxpZ2 77SNVamAtyFaSwzFt6J6RgY rf0BPBn lFslOU3saXBmIJucTs6eaXx xvFisKK0eKLUjxetwl707Qy Arw7ylKGShdLNqILmuHUA1I 83gb9H9 JAXkHXPcLJK7tSG3hJ8ksDi nbjogbGVmdDsgdmVydGljYW vtPYjlU940LIZveDdpDvCxn GllbnQg NOpeELz9H5EiZvllrIQ+PC9 4RNDwVT98iFBrcZUvn9ehnY b9AgVfNGGtCYL3yPnhHEbhn 3JkZXIt I36jrPPca6J1SXDyxPcciYL xUkChhKL2nI0gWWbusotay0 jrfnsoGenkz3hjry97nX55Z 29sIHdp ZHRoPSIzMCUiIHZhbGlnbj0 grK8fBx2+WQGqnRB7qMU7fB 8lGBNdDqJ8RLkgW074EtTew CIvPjxj t0emg2czhPn5McP9MRIemkS ncEnyAQY2u2AaZy02K37bKA dpZHRoPSIyMCUiIHZhbGlnb r4maV6b Ii8+JOFttWO5uND5oX7iJoQ bAqP6SLojB748EsBbuXOkSn nqV07sD9UmmLP+CPGoUfr8G CBzdHls WK4zhCJfQCosXx0dRPK6BcM wVgUlRSppF5YzFSOtcukkbt pkdKN1AUNqUKTyvY90Rn0ou DogMTBw uKGSeW1cbputc3oykxwwRkC lUTOdRYn8QPa8PYXxuJmiMs RtBYQ2NvP2LBF4oDLlqM3ri Glnbjog oH8gC3NuRNOjvxtmNf75vQ8 dGbHwGsH1MXfoQbi+TUNDQU 5OLCBIRUFUSEVSIEVMSVpBQ kVUSDwv dGQ+YFVxHVS3wBwjNSkbKFA mgW2cZEPhY5a6UgVeUeN5YB mvK2LzFHBcogquTh40hE6hS iAwLjA1 XHkrF1GkixQ1ARTpaFImXGx pTXQ8Y23re3B0ISDxBUWkPJ A0wGE4yX9crSbptkdryYIcp DsgdmVy aRvkREfhHAcyX045IKGmiOa yXvHvJfM4AyA0PWM6E2NgNo x2LWYteVorDI1lhMViSKibU u0vdRan mHosWN3bQKUxrpzzJNNntY6 kKKRnuLXvdQylSN2lZAOxkf yjt757MkXbJGN4FFSzwLYxM 9IqjQ1m WaQgDYTwBVAxK2QjnUNgFQh rZ032XNxlDnC7PADzbaXpU9 FfNYZfsZkqRlV4i3T5Dd9tE CBZZWFy czwvdGQ+HAUnGME3xBvrKJn cDIStiS9tRERgC9s4RtRgVw K6TAatJ4LlGBCvjbawIw37h C3zSrYv QyV4XWheF3UgseN3ANIesXO mYMnwTMV8Q05so5U7OCBxOZ IiXEM1tLI3xN7umPwqozklc GVmdDsg gjTllYrnDEikPIocZ819HLN vcDsnPkZFTUFMRTwvdGQ+PH JoHZD3bVolQNasPCJxdR8fT JOnW3v9 CjKlQcZ9BGpxA4ZyAQLptat rLf86lP3aBsMrEeO9YTjyW9 ItsmM3JOOgxDYhSEqyJRU2D 62on9V8 PDMvTPWeSRT5yFV1qH9miYw nbjogbGVmdDsgdmVydGljYW amAIilH410BXAueFmtMhIdV BQySY5p eTwvdGQ+DV21ae71I6JmGvj fEbj6IKRjQDG2nIC4hU5sRC LpCMqln4T6fWO8B6RovrClq r9sg1lo PWFgEZmiB96abUSmz3R4WQU jdJK9BAVmzOzwUtVnzN54Fi c+TVQpbYalj0FhOiwvj7emd 7raoBm9 JkStHZMavvAzfVhfNXE4u3U sCs75L01uFNgnQIQmIRXvKD ZcTQIelNytcv4jjS9mCv1+P GNvbCB3 vMF2yL9kObWlHdL6VHhzE80 3CcIrjGGhBwfej5icw4cxtT m6LwUpZSZzgpAvmEzdONN3g 0EcOt93 C3PfcNndi5IsPai9uo80rMX kq4I6bPS4E9NlYZTmonccsQ OrrAdhFF6iDGUarjnpYAUtw T2vIYSy O5t4TpAdRkZ4QOsrS1MiqvI 5GUAvdHWsKRFodXGBoF9pec ofw6gypzgyZzJjXLXhTMc3G Dz8VCTm rGpkGnHsLNB4MiT6OXE9tUX cjQ9odBgylmgctC8bXaj+UG u2i3htnFAhUY9dwBF8JE08T N95wEMf d5C6hSG3C0FaVHFwojhkudp uaTZ1ICMlCAKwqH62Nn7fpY joEs1cDLQkQHV5UPRvoBWrU 4CxiS1s DhSjOHPqAZEaW3KxhVFoVNs uT499AEozTrU4PFKuxzNdI9 ObQONbzEicAkI2t5R8Uw2MM K34GS38 RD24mXEtx9F8aDW0R0QtXSI fdzmmfhuguMM2EVPyKMBylB 09Xd9shWtjGj3oUSXxKKI9J FRpbWVz E2RfzF0fQsYfTXPrYBTbS9L rgATwNLubT184WNjiKyT8TU VlhbOiP9BqCTIcjOqtMnY8d 1M5Rg4H Ut86FG14AB97bMYcw4E0dCL 8A9YwRPRqblmucqzvrJN6BA WiTLPcbO35Pc3usAlyMm3yJ CAxMHB0 EKQybKJxF4WypA2iJgVrNEM tLYEzQ3OdmAAsCPbtF292LX tiWdT0VKNjysJvA4KfTKSip WduOiB0 x1N1Wo9RVKedabv0I1GxZvr vdHI+PG92QYMyOA60fCIofC Huo0nteFy3IiQfJPLbTGC5c WxlPSdi b3J (more content not included)... [facility] Coding Summary HTMLBase 64 TqvfchnsUYv4hCy+PGhlYWQ +LB4PTZTjQ57piGPbcT9mL7 NMTElOSywgQVBQTElOSyIgb bJeGU0xdEFpELQh IC8+ZD2yCYQoOdovsOLxo1C 2oRG9W47hvz9jZEnofVT7VF ZySvHbxtbow6yvhUm4RLfiG mluOyBt SKXlxL49HWH5gA31Hu97nYV ucCTql8kwkSc3DcSzCMTzDY S3dPwmOQdic6TnQAWmH84fk ZPlq1O5 UYRywNxdoRRhLuKlbRE3yK8 wPOvfzragt6vffgpqKaq4fy 58cJRig3K8uGU7H7FutvG9G GJvbGQg PfzspRDUmN2ghvept1fjhls nVxKoTLOxYPv6CQq0ONJduI pcUjWwJZ10YFU6IMEojjOmJ 2FsLWFs iYnvGmL1k0X1Uc9RG1URAue fS2SYQRAGQDygbFH+PC90cj 99Z5TvBuvgBag0TPTfAIV7g LI8tI0g VSAzKLvwi8V7zKP6G0FufoM xnl9lh0ueGATrXSvsX76wzT Ery9A4YCKziNG6XJXmqRldE iBzaG93 Oyc+SBPorTgag5TzLmase0t rd5cuiYw9YykkDTBaatDhsM adVME6x1DvMx9sQSRriSA4l VV9yQ0p HvQfZuZ3PBvxM618DnAheZU fNicaH38pV7SqjRO+PHRyPj s2KRSaxJhtCJ5qC6NtJCTpi mctbGVm xRduHY4zRODfhzwkEPCqzJ1 eRHNuR1n8LaWfLxF7LUiuV9 GbDUAkhlpcEd31gQ0vNyYmP aE2EVum F4IvsdT9SSToeAIxTKpiFHU 4P58pk4A5FACpKMBeCFS6pO N8lM6fcMcakodgyCYxxGmpx mVydGlj CFwxWZcsW747XBDqqVziFqS vZGluZyBEYXRlOiAgMDcvMj kvMjAyNDwvdGQ+SPRuKMY4q WxlPSAn lOAkXTefRx2spQnjrEirHI4 bFQBkllgwDFRukQ8sOLYcvD OofDlpFV1uNKIzhipvd525V iAxMHB0 EQSplXBxR0EngW8rIsTcWTL hMJGpO6RcsGGeLHxdL067AN wiJdT2CXMailAzA5SdTKPyu WduOiB0 x6N2Kt5Xc0VqouomB2RcrOO hEvDmGvatRQv6V4JqUrmydQ I+XK35MCWxJR16KLe2ODT8f WxlPSdi MPDqE2RgzA1hToJtYEOdLQR kOyc+PHRhYmxlIHdpZHRoPS amWGGsCmCulHmwOK6eZe7tC GVyLWNv rEfebVVlNeMdq1ymEZNcDLg jSX5jaKuiK8RfzIW7SZWma2 d2Cz10A29fN8SteMA+PGNvb OD6jMA8 hI5qUlCsQoV4HZwiW204NdR reTNgHsbbi5bem1zawAu6Tz L8FFWvxsPhkFjiIYA9l7RnM d89P94l IHdpZHRoPSIxNSUiIHZhbGl lot5sjF2qIs8+OEHluEF6pB X8dP8gEqAvPuQ3CEblF224H nRvcCIv Xjhkc6uxw4docUn3ZhYbHDP pefAtrZhvINE6n2PkOp62L7 JnoSzsb2CiAiq0uy59oTOwt 0L6qCE0 E2DgEHKyvdpflGTodOabBA9 hNGXdkwjaRJMlpV3sLTXrG9 v7TdOgZmG5QOfvV7KukcF0U GJvbGQg NGKasVCNgN7yzhsaa1pwyfw cZdYzOYKoXHz2TPu2KBIldW wqPrAtRTO2BqY2IIY3eQVcw W7iuIzk pmkjlU3wKal+YOS2pPQtgGV HWE5iYkevpAK+XWZlCAS5fP foDMfdAPGvnH3vWGDdI1i6W iAwLjA1 HSygR5VazyO9LOUwfKCfFME ceKBIaU0elpjmb4pgazhqKe LpYYPpBCs3VSh2HXPxuQzwS iBsZWZ0 BbX4TOF8tUEzyK4zbVuwqiq dhA6lWcs+JpokxFrqTSS4JG v8G2UkZst6DRHheGcnLA0iy GFkZGlu Aj1zdXktkZitEE0kDYLipuk ms709VpYib2thKQEadVPkIV avOMM8I92aq5P3BVRcSVEqO NL2yJU0 yF9jlEmcqxanpYPckVerbsM zjCxgBUqqIHcaV557GOOuvL hgAaAmSDk9T3VoMnv3VJKjk FmeAN5w qEIqVSufSd9mcRbngRbaVD8 xQDBrgquav476NyQsy7luVW TssLWiJLwgUHU1J77de1X0S CMwMDAw JMD5wAL1oD3bvHnbpvgblDM mdDsgdmVydGljYWwtYWxpZ2 14EVLjvLxiYgVijFb3J5SyG ya8HBBc jWjlRV6bfQAtBBjwTn3oiAl wuQguLO5vXWAbkipny879Pd Fba7gtBGFavHRhSOfwOEE4K 80yf3H9 UTQcFHKmMNQ8jGH6dY8kqJc nbjogbGVmdDsgdmVydGljYW zeGUtjZ392YRWvbTjoOgUbf GllbnQg JVejAAx7L2WxRuhlyHN+PC9 7TSNhMP66yZEsgPBdl5qutN k7IuNpUTItENU9sNkoCPmzx 3JkZXIt L71qiADlo0V1HASadPuvmJZ cPrHbzDN3dX2nDDvwsaxjg1 dbxthpLqlib8pdrk23lJ18M 29sIHdp ZHRoPSIzMCUiIHZhbGlnbj0 onJ8lUt2+JRZmfUD4dPT8dU 0xBKKkOtH2PRtvK298LnLoh CIvPjxj d9ale3emkFp7FjY9URKvejD ccLmlQBB9l0NaBh98W52aYC dpZHRoPSIyMCUiIHZhbGlnb h6saO5v Ii8+WQXmqVU7jUD4nG7iCpN hVuH9QOlkZ448QlBqeRPgKs plZ10qY7IxyMF+DJQaRkl9J CBzdHls YO9gdGXrWWtzOc1yPEN6FvG nPyKoWCzcF9MqKUDymikxvd apdNN9VUQaANIqjK16Ua0yq DogMTBw dBJWfT1qgthqb9ydyxujWvL kYOYgRZr1EOi2MQGuqLkxUg JmERZ3JqX1VWA0rWTqvH3gm Glnbjog aJ6dU9OfQGGkpllhDt02wA8 eQpLtMeZ9RUzzWjk+TUNDQU 5OLCBIRUFUSEVSIEVMSVpBQ kVUSDwv dGQ+RDQsLPP7xBtcTQihVXW tlE5mZCIdM8j3UrExAoY5TQ pbD4FnOPEqejbgTy80hW9cW iAwLjA1 HSfdE1IcjwK9LXHylNVcBDa fMDK1T89np7L9SVOdMWFiEO T2uCS1wN3uoXmxxbbyhVKas DsgdmVy hDfdOUudXOudC671YIVvbMa pJbJdEkH9KvD9BMJ4J3JwSk o4GRSqkLdpVK4chQClZRbpS w8awFiy tPwoIX0mDDFhfbcqKQKtfT8 pQLUxdFMgnGxjVM7eFMBzyn zck050WmJzFEE4WIKckWQsL 9NqoJ7m MpZgJORaIQKsB5PijABwXKv yH249XCnzGcN8EXDaivRjB6 BbUCRzwGcjVsP3n3J5Ww1oO CBZZWFy czwvdGQ+PNVeOZW3jGnzJRh yBRGgjO2wPJZaY0x3MtUmAe A5BZnjD4EePDDrumilNs95h V4mJoVi UeW3QDggE8OkrnU9WQGcuWV lOVcsNFF7N78xi3Z5CJIlFQ XyLNC7rXM7qR6edOlooktda GVmdDsg ysGujBjjQHaaHSdnN236ENY vcDsnPkZFTUFMRTwvdGQ+PH NnUCG3zUnqLZhjGHYunH1aI QFoX2h1 GiIeQpD7TBzcF3FhYICmapw gBn19aV9cAxXdDgO3JGqiW5 YgpxK0EUQkmRZgHYmmAHR8Q 24tw9M4 JEPtUTJpSQW2qYJ2gP3srLq nbjogbGVmdDsgdmVydGljYW jzQGpcH135GIWctYgkHxViI BGdZT8b eTwvdGQ+XQ60ps80C4DrIsm cLyn2EWJtEFU0xAZ8gQ6pFE IwUZulv1H4rHZ5C2LpqjKhw a7vt6rm MXHiCKhcT09vmAZym0Q1DGK tsYQ4IXWnnFsjKfPhfA27At c+YRRqmUmvm7ZbYmilz5jfo 9cgrZr4 DnMlZUVqvaIwhHboVSV5b3J jVi84E05nMWxnKYNaDJYdKX SgLKSioNywwv7jbP7yKn7+P GNvbCB3 fSF3sI3cHrOyNrW4TTdoO10 5AcQhmSMuEadpa3tjy6nfvW c4UfTqJZQdsuQadCpoLVC5t 4InBd74 M9RneDezx3RhZtu8wk53fHZ tk1I2pBY2B4FjDJFaqjqcyC AhrOntEK7xMBSwfytuFMUpw X0fNJCz F2h1UwQzKlQ7GKqxP5RrzuG 2LJBzsRWgNWUeoSCNbW5rlq qkd2ifnoahLxYhKAQaYCd6Q Iy7YUXb dCpjLiIqTVQ8GpQ5JOS7lBK idS9pzRofwhaniX0lHuu+UG h5a4rifXKgEO0kbOV7VT20E Y42xFEb v2A5bJA8M7HdLHUahuqsatt psIH7URLuKAGtrO83Zh6ahG hmFi3iWCEwGSO3GZPfjGXiU 5BehK2h BhKsPMCfKXAcS7PudBCdLQn yT400JJufPfR4UCVizxMfQ1 WuSSVfxCqxWoU8x1E9Ue1FB K29IL55 MX07dUPbb2Q8pBM6I8LwFGU mhquyntygxHM5DTUoZGVvoK 01Lt6kdNhfOx3qNUJvXBE9U FRpbWVz Z7QkuX8pChVzEGQtECInX0R naOWcRNzzM954GPptWeT8KE WvjnTdM3VxZKKwlXowNkM9n 4A9Eo6S Gt24EV81GW85nOOqj7M4oUG 7O1EkAVOynfspygpddAQ5LE LyDDFidE15Zp0rwGncUz9iE CAxMHB0 IKMxoFZpL6IarD2jUgMoFCW dDFQuA3CdaKNdCFxeU436FP zgUqA0BSVwajPbY1VkXTJcb WduOiB0 p4A2Lg6GLPylcsq1V2VrIci vdHI+VR41VXUmPM33iGQyyJ Bkg3pbbKa8TaAyEHFcLTL8v WxlPSdi b3J (more content not included)... [facility] Provider Orderson 11-09-2023 Provider Orders [id number]#[id number] GTIFF [facility] Chlamydia/GC Amplification L Con 11-04-2023 Chlamydia trachomatis, AC LC Negative Invalid Interpretation Code Negative [facility] Comment on above: Performed By: #### 7 [id number] #### [facility] (DEFAULT) [address] [place] [address] Neisseria gonorrhoeae, AC LC Negative Invalid Interpretation Code Negative [facility] Comment on above: Result Comment: Perf ormed At: =G [facility] [id number] Ivan Calvin MD Ph:[phone] Performed By: #### 7 [id number] #### [facility] (DEFAULT) [address] [place] [address] Consent Formson 11-03-2023 Consent Forms [id number]#[id number] GTIFF [facility] ED Note-Nursingon 11-03-2023 ED Note-Nursing Fluconazole 150mg ta b called into [facility] Patient contacted and notified of the results of her culture and the prescription that was sent for her. Instructions on how to take the medication was given, patient verbalized understanding Normal [facility] .Auto Diff 1on 11-02-2023 Auto Lagrange % 9 % Normal 1-12 [facility] Comment on above: Performed By: #### 1 [id number], [id number], [id number] #### [facility] (DEFAULT) [address] [place] [address] 61891 Baso Abs# 0.0 x10 Normal 0.0-0.2 [facility] Comment on above: Performed By: #### 1 [id number], [id number], [id number] #### [facility] (DEFAULT) [address] [place] [address] 02978 Basophils/100 WBC (Bld) 0.2 % Normal 0.2-2.0 [facility] Comment on above: Performed By: #### 1 [id number], [id number], 7151097 #### [facility] (DEFAULT) [address] [place] [address] 54786 Eos Abs# 0.3 x10 Normal 0.0-0.4 [facility] Comment on above: Performed By: #### 1 [id number], [id number], [id number] #### [facility] (DEFAULT) [address] [place] [address] 53972 Eosinophils/100 WBC (Bld) 9.0 % High 0.9-4.0 [facility] Comment on above: Performed By: #### 1 [id number], 5728070, 2412752 #### [facility] (DEFAULT) [address] [place] [address] 80135 Lymph Abs# 0.4 x10 Low 1.3-2.9 [facility] Comment on above: Performed By: #### 1 [id number], 5786054, 8562726 #### [facility] (DEFAULT) [address] [place] [address] 92740 Lymphocytes/100 WBC (Bld) 12 % Low 14-48 [facility] Comment on above: Performed By: #### 1 [id number], 8333607, 3475622 #### [facility] (DEFAULT) [address] [place] [address] 26476 Lagrange Abs# 0.3 x10 Normal 0.0-0.8 [facility] Comment on above: Performed By: #### 1 [id number], 1184848, 3400349 #### [facility] (DEFAULT) [address] [place] [address] 72622 Neut Abs# 2.4 x10 Normal 1.5-9.2 [facility] Comment on above: Performed By: #### 1 [id number], 6068096, 3907940 #### [facility] (DEFAULT) [address] [place] [address] 38238 Neutrophils/100 WBC (Bld) 70 % Normal 44-88 [facility] Comment on above: Performed By: #### 1 [id number], 5416304, 4385043 #### [facility] (DEFAULT) [address] [place] [address] 75282 C Genitalon 11-02-2023 C Genital Heavy growth of Yeas t No CARLOS performed on this organism No growth of GC at 3 days. 4+ Gram Positive Rods Few Yeast No WBC's seen. Gram Negative Diplococci not seen. Normal [facility] Comment on above: Performed By: #### 7 [id number] #### [facility] (DEFAULT) [address] [place] [address] 85519 CBC w/ Auto Diffon Erythrocyte distribution width (RBC) [Ratio] 13.7 % Normal 11.5-15.0 [facility] Comment on above: Performed By: #### 1 [id number], 2673022, 4586816 #### [facility] (DEFAULT) [address] [place] [address] 60329 Hematocrit (Bld) [Volume fraction] 40.5 % High 33.7-40.4 [facility] Comment on above: Performed By: #### 1 [id number], 2391581, 5786424 #### [facility] (DEFAULT) [address] [place] [address] 55779 Hemoglobin (Bld) [Mass/Vol] 13.7 g/dL Normal 11.3-15.9 [facility] Comment on above: Performed By: #### 1 [id number], 0862223, 2764122 #### [facility] (DEFAULT) [address] [place] [address] Man Diff? Auto Invalid Interpretation Code [facility] Comment on above: Performed By: #### 1 [id number], 0464847, 7896844 #### [facility] (DEFAULT) [address] [place] [address] 73928 MCH (RBC) [Entitic mass] 29 pg Normal 24-34 [facility] Comment on above: Performed By: #### 1 [id number], 8390839, 1318577 #### [facility] (DEFAULT) [address] [place] [address] 66714 MCHC (RBC) [Mass/Vol] 34 g/dL Normal 26-37 [facility] Comment on above: Performed By: #### 1 [id number], 0298079, 5211803 #### [facility] (DEFAULT) [address] [place] [address] 13963 MCV (RBC) [Entitic vol] 85 fL Normal 81-100 [facility] Comment on above: Performed By: #### 1 [id number], 7365881, 6707299 #### [facility] (DEFAULT) [address] [place] [address] 58505 Platelet 106 x10 Low 138-427 [facility] Comment on above: Performed By: #### 1 [id number], 6953258, 4950558 #### [facility] (DEFAULT) [address] [place] [address] 15783 Platelet mean volume (Bld) [Entitic vol] 7.0 fL Normal 6.3-10.2 [facility] Comment on above: Performed By: #### 1 [id number], 5891955, 7577107 #### [facility] (DEFAULT) [address] [place] [address] 12809 RBC 4.74 x10 Normal 3.70-5.30 [facility] Comment on above: Performed By: #### 1 2328576, 2856599, 7843447 #### [facility] (DEFAULT) [address] [place] [address] 35942 WBC 3.5 x10 Normal 3.5-10.5 [facility] Comment on above: Performed By: #### 1 [id number], 2045782, 8558096 #### [facility] (DEFAULT) [address] [place] [address] 98712 CMP Standardon 11-02-2023 eGFR Non AA >60 Invalid Interpretation Code [facility] Comment on above: Performed By: #### 1 [id number], 7509229, 5928972 #### [facility] (DEFAULT) [address] [place] [address] 72574 eGFR AA >60 Invalid Interpretation Code [facility] Comment on above: Performed By: #### 1 4392370, 0049998, 1339325 #### [facility] (DEFAULT) [address] [place] [address] 65188 Albumin [Mass/Vol] 4.1 g/dL Normal 3.5-5.0 [facility] Comment on above: Performed By: #### 1 1938353, 4114079, 4737153 #### [facility] (DEFAULT) [address] [place] [address] 31991 Albumin/Globulin [Mass ratio] 1.7 {ratio} Normal 1.4-2.6 [facility] Comment on above: Performed By: #### 1 5189095, 7486896, 2673000 #### [facility] (DEFAULT) [address] [place] [address] 91644 Alk Phos 40 IU/L Normal 32-91 [facility] Comment on above: Performed By: #### 1 8985771, 4200751, 2827843 #### [facility] (DEFAULT) [address] [place] [address] 66534 ALT [Catalytic activity/Vol] 20.0 U/L Normal 14.0-54.0 [facility] Comment on above: Performed By: #### 1 [id number], 4693963, 9692462 #### [facility] (DEFAULT) [address] [place] [address] 85978 Anion gap [Moles/Vol] 9.5 mmol/L Normal 5.0-19.0 [facility] Comment on above: Performed By: #### 1 0690208, 0257912, 7131509 #### [facility] (DEFAULT) [address] [place] [address] 54216 AST [Catalytic activity/Vol] 19 U/L Normal 15-41 [facility] Comment on above: Performed By: #### 1 [id number], 2537237, 3936845 #### [facility] (DEFAULT) [address] [place] [address] 75833 Bili Total 0.7 mg/dL Normal 0.3-1.2 [facility] Comment on above: Performed By: #### 1 [id number], 0911855, 4123442 #### [facility] (DEFAULT) [address] [place] [address] 11675 Calcium [Mass/Vol] 8.4 mg/dL Low 8.9-10.3 [facility] Comment on above: Performed By: #### 1 4643558, 1113187, 7989479 #### [facility] (DEFAULT) [address] [place] [address] 56441 Chloride [Moles/Vol] 109 mmol/L Normal 101-[address] [facility] Comment on above: Performed By: #### 1 0797974, 7279929, 2055497 #### [facility] (DEFAULT) [address] [place] [address] 28620 CO2 [Moles/Vol] 21 mmol/L Normal 21-32 [facility] Comment on above: Performed By: #### 1 9990905, 8111959, 1710380 #### [facility] (DEFAULT) [address] [place] [address] 18056 Creatinine [Mass/Vol] 0.71 mg/dL Normal 0.60-1.30 [facility] Comment on above: Performed By: #### 1 [id number], 6758466, 9824751 #### [facility] (DEFAULT) [address] [place] [address] 64379 Globulin (S) [Mass/Vol] 2.4 g/dL Normal 1.5-4.3 [facility] Comment on above: Performed By: #### 1 6343752, 6764322, 7420008 #### [facility] (DEFAULT) [address] [place] [address] 86758 Glucose [Mass/Vol] 95.0 mg/dL Normal 74.0-118.0 [facility] Comment on above: Performed By: #### 1 [id number], 3841737, 0054400 #### [facility] (DEFAULT) [address] [place] [address] 70399 Osmolality 270 mOsm/L Invalid Interpretation Code [facility] Comment on above: Performed By: #### 1 [id number], 1000413, 7109538 #### [facility] (DEFAULT) [address] [place] [address] 91250 Potassium [Moles/Vol] 3.5 mmol/L Low 3.6-5.1 [facility] Comment on above: Performed By: #### 1 [id number], 0243814, 5701313 #### [facility] (DEFAULT) [address] [place] [address] 25824 Protein [Mass/Vol] 6.5 g/dL Normal 6.5-8.1 [facility] Comment on above: Performed By: #### 1 6241242, 5713953, 5049346 #### [facility] (DEFAULT) [address] [place] [address] 33816 Sodium [Moles/Vol] 136.0 mmol/L Normal 136.0-144.0 [facility] Comment on above: Performed By: #### 1 0615318, 8843281, 9793026 #### [facility] (DEFAULT) [address] [place] [address] 30158 Urea nitrogen [Mass/Vol] 7 mg/dL Low 8-26 [facility] Comment on above: Performed By: #### 1 [id number], 7050816, 5211843 #### [facility] (DEFAULT) [address] [place] [address] 75708 Urea nitrogen/Creatinine [Mass ratio] 9.8 mg/mg Normal 4.6-16.2 [facility] Comment on above: Performed By: #### 1 [id number], 3032470, 4513039 #### [facility] (DEFAULT) [address] [place] [id number] Abdomen/Pelvis w/ Contras ton 11-02-2023 CT [...] DO 11/02/23 3:37 pm Technologist: Adama DUFFY [facility] ED Clinical Summaryon 2023 ED Clinical Summary [facility] - Emergency Department [address] [place], [place] [id number] ED Clinical Summary PERSON INFORMATION Name: AJZ SANDERS Age: 28 Years Sex: FEMALE : 1995 MRN: Acct#: Visit Reason: Abdominal pain; Nausea; FLANK/HIP PAIN, FEVER Arrival: 11/02/2023 07:57:28 Discharge: 11/02/2023 13:31:00 LOS: 000 05:34 Check In: 11/02/2023 07:57:28 Checkout:11/02/2023 13:31:00 Address: [facility] [address] PCP: Amanda Ford CNP PROVIDER INFORMATION Provider Role Assigned Unassigned Danita Dowling STEEL FABRICATOR Nurse 11/02/2023 08:07:27 Narda Phillips MD ED [...] Follow-Up: With: Address: When: Amanda Ford CNP [address] [place] [address] Within 3 to 5 days DIAGNOSIS: 1:Hip pain Patient Understands: Yes - Patient/family/caregive r verbalizes understanding of instructions given Comment: Normal [facility] ED Patient Summaryon 024 ED Patient Summary [facility] - Emergency Department [address] [place] [address] PATIENT DISCHARGE INSTRUCTIONS Patient Information Name: JAZ SANDERS Age: 28 Years Date of : 1995 Reason For Visit: Abdominal pain; Nausea; FLANK/HIP PAIN, FEVER Arrival Time: 11/02/2023 07:57:28 Primary Care Physician: Amanda Ford CNP Attending Physician: Narda Phillips MD Comment: Visit Diagnosis: Diagnoses This Visit Abdominal pain ([id number]) Hip pain (M25.559) Nausea ([id number] ) The Pharmacy at [facility] is open Tuesday through Tuesday from [...] alcohol and/or drug addiction problems; contact the [facility] 08/11 Crisis Hotline -Text 6ZIPM fn 147773. If you received any narcotics, sedation, or [...] sign any legal documents With: Address: When: Logan [address] [place] [address] Within 3 to 5 days Medication Information: The exam and treatment you received today in the [facility] Emergency Department were for an urgent problem and are not intended as complete care. It is important for you to follow up with a doctor, nurse practitioner, or physician?s care team assistant for ongoing care. If your symptoms [...] can reach you if necessary. [facility] Emergency Department has provided you with a complete list of medications post discharge. Please inform your block paver/provider of your visit and for further instruction on these medications. Any specific questions regarding your chronic medications and dosages should be discussed with your primary care physician(s) and/or pharmacist. New Medications [facility] [place], [place] [id number], [phone] cyclobenzaprine (cyclobenzaprine 10 mg oral tablet) 1 [...] 0. lidocaine topic (more content not included)... Normal [facility] Extra Green11-02-2023 Tube Collected Yes Invalid Interpretation Code [facility] Comment on above: Performed By: #### 1 [id number] #### [facility] (DEFAULT) [address] [place] [address] 10082 Test Urine U Preg Negative [facility] Comment on above: Performed By: #### 7 [id number] #### [facility] (DEFAULT) [address] [place] [address] 18999 U Preg Internal Control Pass Normal [facility] Comment on above: Performed By: #### 7 [id number] #### [facility] (DEFAULT) [address] [place] [address] UA [id number] 11-02-2023 UA Bacteria Trace [facility] Comment on above: Order Comment: Urina lysis Microscopic order added on by Discern Expert Rules system. Performed By: #### 7 [id number] #### [facility] (DEFAULT) [address] [place] [address] UA Mucous 1+ Normal [facility] Comment on above: Order Comment: Urina lysis Microscopic order added on by Discern Expert Rules system. Performed By: #### 7 [id number] #### [facility] (DEFAULT) [address] [place] [address] UA RBC None Seen [facility] Comment on above: Order Comment: Urina lysis Microscopic order added on by Endoart Expert Rules system. Performed By: #### 7 [id number] #### [facility] (DEFAULT) [address] [place] [address] UA Squam Epi Few [facility] Comment on above: Order Comment: Urina lysis Microscopic order added on by End[employer] Expert Rules system. Performed By: #### 7 [id number] #### [facility] (DEFAULT) [address] [place] [address] UA WBC None Seen [facility] Comment on above: Order Comment: Urina lysis Microscopic order added on by [employer] Expert Rules system. Performed By: #### 7 [id number] #### [facility] (DEFAULT) [address] [place] [id number] UA w Culture if Ind Standard on 11-02-2023 Breakpoint UA [facility] Comment on above: Performed By: #### 7 [id number] #### [facility] (DEFAULT) [address] [place] [address] Color (U) Dark Yellow [facility] Comment on above: Performed By: #### 7 [id number] #### [facility] (DEFAULT) [address] [place] [address]61 Culture? Not Indicated Invalid Interpretation Code [facility] [place] Comment on above: Result Comment: Resu lt created by rule GL_MAGR_ADD_UA_CULT Performed By: #### [id number] #### [facility] (DEFAULT) [address] [place] [address] [id number] Glucose (U) [Mass/Vol] Negative Normal [facility] Comment on above: Performed By: #### [id number] #### [facility] (DEFAULT) [address] [place] [address] [phone] Ketones Ql (U) TRACE Normal [facility] Comment on above: Performed By: #### [id number] #### [facility] (DEFAULT) [address] [place] [address] [id number] Micro? Indicated Invalid Interpretation Code [facility] Comment on above: Result Comment: Resu lt created by rule GL_MAGR_ADD_UA_MICRO Performed By: #### [id number] #### [facility] (DEFAULT) [address] [place] [address] [phone] UA Bilirubin MODERATE Abnormal [facility] Comment on above: Performed By: #### [id number] #### [facility] (DEFAULT) [address] [place] [address] [phone] UA Blood Negative Normal NEGATIVE [facility] Comment on above: Performed By: #### [id number] #### [facility] (DEFAULT) [address] [place] [address] [id number] UA Clarity SL CLOUDY Abnormal CLEAR [facility] Comment on above: Performed By: #### [id number] #### [facility] (DEFAULT) [address] [place] [address] [id number] UA Leuk Est Negative Normal NEGATIVE [facility] Comment on above: Performed By: #### [id number] #### [facility] (DEFAULT) [address] [place] [address] 46846 UA Nitrite Negative Normal NEGATIVE [facility] Comment on above: Performed By: #### [id number] #### [facility] (DEFAULT) [address] [place] [address] [phone] UA pH 6.0 Normal 5-8 [facility] Comment on above: Performed By: #### [id number] #### [facility] (DEFAULT) [address] [place] [address] 44349 UA Protein 30 Abnormal NEGATIVE [facility] Comment on above: Performed By: #### [id number] #### [facility] (DEFAULT) [address] [place] [address] UA Spec Grav >=1.030 Normal 1.001-1.035 [facility] Comment on above: Performed By: #### [id number] #### [facility] (DEFAULT) [address] [place] [address] UA Urobilinogen 1.0 mg/dL Normal 0.2-1.0 [facility] Comment on above: Performed By: #### [id number] #### [facility] (DEFAULT) [address] [place] [address] Urine Source Clean Catch Normal [facility] Comment on above: Performed By: #### [id number] #### [facility] (DEFAULT) [address] [place] [address] [place].on 11-02-2023 [place]. Negative Normal [facility] Comment on above: Performed By: #### [id number] #### [facility] (DEFAULT) [address] [place] [address] Coding Summaryon 10-26-2023 Coding Summary HTMLBase 64 JtqexbcjLEj0gRw+PGhlYWQ +HW9WZBLaJ92fgEHqaR6rH1 NMTElOSywgQVBQTElOSyIgb qIyBH5lzSDjEVFd IC8+FF6iJXQcKnmmhFDjq3U 7bBO1K94tmc8uJPyozRC8UN AsHrRrejict4arzSi4ZQkzG mluOyBt YOAvcT29CXN4iC33Db85qAZ xyHNnt9ugxIs2WxDzOFAzIY G6qOpiBRraj1VcTSIgE58hk YIjk3F2 UZVqxRzzhQTdPgDfdWC7uM0 dQRewaxslq6ndxztkRdv5fb 46hJJdi7U6fAM9Y4FdlvX6T GJvbGQg UwdvcYXIcS1vofefk1tuieu bVhJtPYGyAAv0LTt4YRHqzK izBdOjMT20XRF2ZJWwrwXzY 2FsLWFs hNmvFwB9g5J1Ou1NK7YOXed tX2CPSGTAIJsweHW+PC90cj 88T0GkYlzdUme5ZRBxJHU7x NQ0kW8l PUCsVSkkv9B4nIX4L5UszxW upm8gi9dbHARcOHbwC21ueV Vvl1M1ZOXrcKT9LVSigMekX iBzaG93 Oyc+EOYhdMzvt0JgCzxjx3i ft2fotVd0CwydXVXbtdEorT gfWQG4z0GuOf8cIMKpzQW1p CF7dU9u VpAcRfK6GAuqT805WpUzdDW rIlsgV77mB6DjyQY+PHRyPj g7LMYkqUegBJ0xE4QgBOFqz mctbGVm lPpeOA2kOXLajtfnMLNvnZ2 mSKSsJ2w3CxEyEjJ7SWihH8 SwMTGdybeuXw31zM0cVpVcL pX4UVxi P0MbwxC2ZFKitMZgAQlxJIQ 7Z20pq6H1OTEpDYDbOSA2tG R0eP6auMlfgdbcfYYwiEgeb mVydGlj CTvqSLvuK817RTPwpYadIgD vZGluZyBEYXRlOiAgMDcvMT AvMjAyNDwvdGQ+SIQuDIB2g WxlPSAn mKTsETirLa8wqYggtExxUG2 jKYDazgeaKAUazZ5yVUCxwT NngFrgOF8wVYIdvqblz557U iAxMHB0 HBAthWKzZ0LfzB1tQwKcUEV rVMGrP9PbxLRdVBbxM363JM uqMdL2AYKnrbYkV3RqDHVyn WduOiB0 i2M7Nk2Wr1RlieokN0VkmLY zFbGqRodjSPm8V2BqVgqukB I+PG64TQRqMO07FKi6FYE2k WxlPSdi QBJqT3LpyE5wPiIlSRXlWLS kOyc+PHRhYmxlIHdpZHRoPS ssUBDpVdYbmMmbHD1bKr5wP GVyLWNv nPabiJWrEoHkq5hdTVVzKYy tRB2gsXujH8YljNS7YUApr0 a3Tr07P59wG6JpiNS+PGNvb PO0qRG0 oP4eQdPhIrB8GDlzF880LcC trRFqVkulf1mqx8xvwXr4Pd N3HSMocnSleBfsULQ4z7JxE y76H57l IHdpZHRoPSIxNSUiIHZhbGl ndm2ymB1wCk3+HPFjgTO3cN S2hD2hPoVmMuC9CRzdP680J nRvcCIv Rdmnx5evk0wnlTu9HvFiQHY fqcNecIchUDH9j5QwEq16G8 RwuIcqu1MfOdd6sj63yDQip 9O0uQH9 I7QyHZZwfhytwKQunJzcID7 yKMDtoilhTSWalA9lLFFxQ8 x3QdCuDhO6LRdpD6SvujM7W GJvbGQg WGQecKGRcG4huksyr6ngxos xCgPpQGBmYFz4TFg6HWUjzU rzAsSmWUO7FlJ1ARS9iWRgp A4pxGhw ozurfE6kSwt+EPP7aGMlvEW IJC4eGtxlyPS+ELWzAPD1jO lvEDvqOZLkzL2vJXAuR9m7Q iAwLjA1 PVqpB5EcfsJ8ESOwbEZoNQK oxKEAvH1okxicu9jealcmJk UcHPJhCEq2VBh3ERRaaQclW iBsZWZ0 QmK0QER0aARswV6dbIrissu rbU6cMjn+OallqRakDFI8MU v5C7YzRrr2PDUgoYwkVU3kj GFkZGlu Se6ykTltwEenNP8qFXPburj kl880TtRat5hkASVdfLDrPX mvBKH6U96rx6H1QJBqWKAmB KI3lXY1 rO6ncFucdkzhmGDfzDyoicK cxAtpRBigKLtsL717TCOlwN fuNxUoTFe9R9ZjNfj7NSEet ZrpRO7w hTAzRPngJk9ykEcbvTduIZ8 yKQWqyvovm568HlItg4jqQZ JvoMLrAPwoXFO6Y75hp3J3Y CMwMDAw RTN9lBP1kP1kiEourxihdMC mdDsgdmVydGljYWwtYWxpZ2 18YFQsxZtpZcLqwMi1S5DeY jr9PPGn qPcmMG9qhPNkAEyaSn8deXr joHvzOC3lONMpkyduh052Ww Way9xtNQCipLNiZCoyRFG8S 83ff3P9 ZCYwWMGdXFC1hVK2hS1xgKc nbjogbGVmdDsgdmVydGljYW thJBloH109UXZfzCtzDhRwk GllbnQg RCzaFMp3U0TsYezfaNQ+PC9 2INBmMI25nLEfrJCov3zezA v0KrSxATCqQOF5uYtrPDzrq 3JkZXIt Y03qdGJvz4I2BIJmqBwqgJC dAzLldMC9tC2mCTmbbrqgz8 olieqdHfwnp4bixs06hU87U 29sIHdp ZHRoPSIzMCUiIHZhbGlnbj0 drQ5vGa4+KKFetKX2rCP6gT 9xCKXwTgJ7YZpbN099FvUir CIvPjxj q0vju0ctzXu6VfQ4WBZhysV seNmjFDG6y3HtXg34A05oBA dpZHRoPSIyMCUiIHZhbGlnb r2acZ9o Ii8+AKXoqAG9iBF6tB5qJuZ lJnA4FXqiR420TmVvdCSiSe eoS86yN1UxdVO+WVHxFax5M CBzdHls ZO5miBLgGBajQi1kSOE5ZcO aUvIfLNxvT8BcPOEgihhlms htjXA5EYYeBBDulG31Xm6ou DogMTBw xWDMbY8cnumze3iennwuGnK cTGNiWOj3DLb4HIIsgHcsNk GoXNC2VcX8BRN3dGSjsF7nz Glnbjog gG0zN6IwPFVmhrjhEj31aU6 fAdZvIhZ3DYoyJmb+TUNDQU 5OLCBIRUFUSEVSIEVMSVpBQ kVUSDwv dGQ+AJWvTQQ5oFcfMUmxVMZ ybG5bESMbG0k1TiHmIpE8VO mkU5LtMYGopkdsPs60jU7nE iAwLjA1 OChcQ0VozmS8BPGlwNKeQZj vJDJ1K79or4Z7BRSlUTYaII W7iIL4mC0ucWyclfvsbTGtc DsgdmVy nRunRHazEBuuJ108FHZtrTk xRbBiOsX0ZhV8PRJ0W6MdUl z3QBGjvUzpEQ5dlUCeJBcdZ l9gmSbj rQohRV4uRWZaesiwLKKvgO2 lAQIttWQyoWmmTU9lIBFgza rxd638RbUmVSK4WIOplWRdX 9JuhZ7c EyXoZMWvLOQbL5DarFHtYDe hD662FJniYcR5EGJqvwXgK4 PrJJPodCdlJrI7d9T9Gc1cF CBZZWFy czwvdGQ+FRQcXRD9dJxfGIb bGMTudV4iPAHeH8i8XfIxIn F4NFzaY3HtVCCjmkhfSm66n Q9oUjSk XpQ5PUznP5OmqcY6GMMnxPA rVGdtHWZ7P45dg9Y0BEHgXZ DwRKA1jQD2kG6cxZgzvuhkh GVmdDsg evCpmRqlQEfxLQibS468SKW vcDsnPkZFTUFMRTwvdGQ+PH PlIHE3bCbeOCznAPPydB7nT EEeX1q6 GqKdPhM9NFamO4JbNGDtmxo rDd02eC0eTkQzGdR7WQzbP2 RmvlB5QMDbgAUlOCpcHBN3J 79tk8M9 BRMqYQNgRMM8lZW3hY7bwVj nbjogbGVmdDsgdmVydGljYW txUCneQ817FQBnpQsgYjTeP 3Vycmlu LpPKxUTrTQIxAT39WB61ZZ5 9Y6DzVzosaJDbiBF+PHRhYm xlIHdpZHRoPScxMDAlJyBzd YzfBH7j Ec3tPDNgBTUgxPmjoSOgBwL mt0hpZQEiEGgfNL9prYjuM2 CvfRW3HPEay9g2Cs04S24nU 3JvdXA+ QVGglLI6lOP0sF9oSsHsBeQ 2ONyfV102EiKnzRQkAyejc7 jaa8ndzRd0QqCaYVTvwfGht WduPSJ0 x7NsJa65I24fQTivCPBtWZP oVECvDKKbvJmgvt0caG1hSi 8+ZQEdrPL8zCZ7gE0uYaHeV gW9GYmg H383DlYdbSJeHnyiE41yU1U vdXA+FVKkEbi0LAShxWjtFT 0btWQbQPytNt7mPUY8IlViZ jIwMGlu K8SuPPEszfjllezhvHF0ASX dZFDzxZ99Ye6vmAqeWm5fRE ZfVOR8QIQgzPSpQ0AxqD2qZ iAjMDAw FKWfW0AfsWSjSBbyA089XQn sQcB7RBGfrdCyM8LgXXRysH oiWuM9w6M8Qi3VlUjuhMBiN N5lHiGj INe6F1ClTwg2JPSliJskXL0 oiISmTNcoXa6krQdscAxmJK 6fUNKncsurb386JgRfw6afQ DEwcHQg TMnbBER1K08in6X4EMXlUQM uMBI1kNL9aW4uuLrxxufneM VmdDsgdmVydGljYWwtYWxpZ 246IHRv wCsuLhAFVas5P0GcVcv1WXH anPxjKV2cdUQwWAaeEi9flL ocmDdlJH8dYSHacrfqr400N uRic9mj YLUliCSzTQdzZHG6W36ih5C 5JPHjTOAbQDY6qVZ6fI1nqK lnbjogbGVmdDsgdmVydGljY WwtYWxp F558ONBebNxoEe5KFko1U8T bFnf1XNKacNuoBD9lzQPkJE vrIs7pgVwtaPdmRK4xIKFco qavw364 UgVng2xcLPQznYHoQDlzLBS 5K76fx5W4SUAoNKYgRXK8zL N0oF1fmOgaxwlhpAInqZeus mVydGlj QWacKGiiG452HMDulQbzVcS heWVyOjwvdGQ+QT42pe98I1 MtBzntIxy1AWLxCIZ7jLH4x W1kBMOv JSc (more content not included)... Normal [facility] Basophils Auto (Bld) [#/Vol] on 09-15-2023 Basophils (Bld) [#/Vol] 0.0 x10 0.0-0.2 [facility] Basophils/100 WBC Auto (Bld) on 09-15-2023 Basophils/100 WBC (Bld) 0.3 % 0.2-2.0 [facility] Eosinophils/100 WBC Auto (Bl d)on 09-15-2023 Eosinophils/100 WBC (Bld) 2.7 % 0.9-4.0 [facility] Erythrocyte distribution wid th Auto (RBC) [Ratio]on 09-15-2023 Erythrocyte distribution width (RBC) [Ratio] 14.1 % 11.5-15.0 [facility] Hematocrit Auto (Bld) [Volum e fraction]on 09-15-2023 Hematocrit (Bld) [Volume fraction] 41.4 % High 33.7-40.4 [facility] Hemoglobin [Mass/volume] in Bloodon 09-15-2023 Hemoglobin (Bld) [Mass/Vol] 14.0 g/dL 11.3-15.9 [facility] Iron binding capacity [Mass/ volume] in Serum or Plasmaon 09-15-2023 Iron binding capacity [Mass/Vol] 405 mcg/dL High 250-400 [facility] Iron saturation [Mass Fracti on] in Serum or Plasmaon 09-15-2023 Iron saturation [Mass fraction] 12 % Low 20-55 [facility] Laboratory - Chemistry and C hemistry - challengeon 09-15-2023 Iron [Mass/Vol] 48.0 ug/dL 28.0-170.0 [facility] Transferrin [Mass/Vol] 289.2 mg/dL 192.0-382.0 [facility] Leukocytes [#/volume] correc terry for nucleated erythrocytes in Blood by Automated counon 09-15-2023 WBC corrected for nucl RBC Auto (Bld) [#/Vol] 6.4 x10 3.5-10.5 [facility] Lymphocytes Auto (Bld) [#/Vo l]on 09-15-2023 Lymphocytes (Bld) [#/Vol] 2.2 x10 1.3-2.9 [facility] Lymphocytes/100 WBC Auto (Bl d)on 09-15-2023 Lymphocytes/100 WBC (Bld) 34 % 14-48 [facility] MCH Auto (RBC) [Entitic mass ]on 09-15-2023 MCH (RBC) [Entitic mass] 29 pg 24-34 [facility] MCHC Auto (RBC) [Mass/Vol]on 09-15-2023 MCHC (RBC) [Mass/Vol] 34 g/dL 26-37 [facility] MCV Auto (RBC) [Entitic vol] on 09-15-2023 MCV (RBC) [Entitic vol] 87 fL 81-100 [facility] Monocytes Auto (Bld) [#/Vol] on 09-15-2023 Monocytes (Bld) [#/Vol] 0.4 x10 0.0-0.8 [facility] Monocytes/100 WBC Auto (Bld) on 09-15-2023 Monocytes/100 WBC (Bld) 6 % 1-12 [facility] Neutrophils Auto (Bld) [#/Vo l]on 09-15-2023 Neutrophils (Bld) [#/Vol] 3.7 x10 1.5-9.2 [facility] Neutrophils/100 WBC Auto (Bl d)on 09-15-2023 Neutrophils/100 WBC (Bld) 57 % 44-88 [facility] No Panel Informationon 09-14 Add Manual Differential Auto Auto [facility] Eosinophils # (Auto) 0.2 x10 0.0-0.4 [facility] Platelet mean volume Auto (B ld) [Entitic vol]on 09-15-2023 Platelet mean volume (Bld) [Entitic vol] 6.7 fL 6.3-10.2 [facility] Platelets Auto (Bld) [#/Vol] on 09-15-2023 Platelets (Bld) [#/Vol] 179 x10 138-427 [facility] RBC Auto (Bld) [#/Vol]on RBC (Bld) [#/Vol] 4.76 x10 3.70-5.30 [facility] Follitropin [Units/volume] i n Serum or PlasmaOrdered By: LEOBARDO BARROSO on 06-23-2022 Follitropin Qn 6.2 m[IU]/mL [facility] Comment on above: FEMALE NORMALS (DELROY ENOPAUSE) MID-FOLLICULAR PHASE: 3.9-8.8 mIU/mL MID-CYCLE PEAK: 4.5-22.5 mIU/mL MID-LUTEAL PHASE: 1.8-5.1 mIU/mLFEMALE NORMALS (POSTMENOPAUSE): 16.7-113.6 mIU/mLMALE NORMALS: 1.3-19.3 mIU/mL Prolactin [Mass/volume] in S betty or PlasmaOrdered By: LEOBARDO BARROSO on 06-23-2022 Prolactin [Mass/Vol] 7.58 ng/mL 3.34-26.72 [facility] CT biopsyOrdered By: Lisha Ford on 06-16-2022 Transferrin [Mass/Vol] 393 mg/dL 180-380 [facility] Iron [Mass/volume] in Serum or PlasmaOrdered By: Amanda Ford on 06-16-2022 Iron [Mass/Vol] 34 ug/dL 40-150 [facility] Iron binding capacity [Mass/ volume] in Serum or PlasmaOrdered By: Amanda Ford on 06-16-2022 Iron binding capacity [Mass/Vol] 550 ug/dL 255-450 [facility] Iron saturation [Mass Fracti on] in Serum or PlasmaOrdered By: Amadna Ford on 06-16-2022 Iron saturation [Mass fraction] 6.2 % 20-50 [facility] Anisocytosis LM Ql (Bld)Orde red By: Farhad Gallego on 06-11-2022 Anisocytosis Ql (Bld) Marked [facility] Basophils Auto (Bld) [#/Vol] Ordered By: Farhad Lashonda on 06-11-2022 Basophils (Bld) [#/Vol] N/A [facility] Basophils/100 WBC Auto (Bld) Ordered By: Farhad Lashonda on 06-11-2022 Basophils/100 WBC (Bld) N/A [facility] Basophils/100 WBC Manual cnt (Bld)Ordered By: Farhad Lashonda on 06-11-2022 Basophils/100 WBC (Bld) 1 % 0-2 [facility] Eosinophils Auto (Bld) [#/Vo l]Ordered By: Farhad Lashonda on 06-11-2022 Eosinophils (Bld) [#/Vol] N/A [facility] Eosinophils/100 WBC Auto (Bl d)Ordered By: Farhad Lashonda on 06-11-2022 Eosinophils/100 WBC (Bld) N/A [facility] Eosinophils/100 WBC Manual c nt (Bld)Ordered By: Farhda Lashonda on 06-11-2022 Eosinophils/100 WBC (Bld) 7 % 1-3 [facility] Erythrocyte distribution wid th Auto (RBC) [Ratio]Ordered By: Farhad Gallego on 06-11-2022 Erythrocyte distribution width (RBC) [Ratio] 26.1 % 11.9-15.3 [facility] Hematocrit Auto (Bld) [Volum e fraction]Ordered By: Farhad Gallego on 06-11-2022 Hematocrit (Bld) [Volume fraction] 25.7 % 34.0-46.4 [facility] Hemoglobin [Mass/volume] in BloodOrdered By: Farhad Gallego on 06-11-2022 Hemoglobin (Bld) [Mass/Vol] 8.0 g/dL 11.8-15.4 [facility] Hypochromia LM Ql (Bld)Order ed By: Farhad Gallego on 06-11-2022 Hypochromia Ql (Bld) Moderate [facility] Leukocytes [#/volume] correc terry for nucleated erythrocytes in Blood by Automated counOrdered By: Farhad Gallego on 06-11-2022 WBC corrected for nucl RBC Auto (Bld) [#/Vol] 5.0 10*3/uL 3.8-11.6 [facility] Lymphocytes Auto (Bld) [#/Vo l]Ordered By: Farhad Gallego on 06-11-2022 Lymphocytes (Bld) [#/Vol] N/A [facility] Lymphocytes/100 WBC Auto (Bl d)Ordered By: Farhad Gallego on 06-11-2022 Lymphocytes/100 WBC (Bld) N/A [facility] Lymphocytes/100 WBC Manual c nt (Bld)Ordered By: Farhad Gallego on 06-11-2022 Lymphocytes/100 WBC (Bld) 56 % 18-42 [facility] MCH Auto (RBC) [Entitic mass ]Ordered By: Farhad Gallego on 06-11-2022 MCH (RBC) [Entitic mass] 21.1 pg 24.7-34.3 [facility] MCHC Auto (RBC) [Mass/Vol]Or dered By: Farhad Gallego on 06-11-2022 MCHC (RBC) [Mass/Vol] 31.2 g/dL 32.0-35.0 [facility] MCV Auto (RBC) [Entitic vol] Ordered By: Farhad Lashonda on 06-11-2022 MCV (RBC) [Entitic vol] 67.6 fL 80-100 [facility] Microcytes LM Ql (Bld)Ordere d By: Farhad Lashonda on 06-11-2022 Microcytes Ql (Bld) Marked [facility] Monocytes Auto (Bld) [#/Vol] Ordered By: Farhad Lashonda on 06-11-2022 Monocytes (Bld) [#/Vol] N/A [facility] Monocytes/100 WBC Auto (Bld) Ordered By: Farhad Lashonda on 06-11-2022 Monocytes/100 WBC (Bld) N/A [facility] Monocytes/100 WBC Manual cnt (Bld)Ordered By: Farhad Lashonda on 06-11-2022 Monocytes/100 WBC (Bld) 5 % 2-11 [facility] Neutrophils Auto (Bld) [#/Vo l]Ordered By: Farhad Lashonda on 06-11-2022 Neutrophils (Bld) [#/Vol] N/A [facility] Neutrophils/100 WBC Auto (Bl d)Ordered By: Farhad Lashonda on 06-11-2022 Neutrophils/100 WBC (Bld) N/A [facility] Nucleated erythrocytes [Pres ence] in Blood by Automated countOrdered By: Farhad Lashonda on 06-11-2022 Nucleated RBC Auto Ql (Bld) N/A [facility] Platelet adequacy [Presence] in Blood by Light microscopyOrdered By: Farhad Lashonda on 06-11-2022 Platelets LM Ql (Bld) Normal Normal [facility] Platelet mean volume Auto (B ld) [Entitic vol]Ordered By: Farhad Lashonda on 06-11-2022 Platelet mean volume (Bld) [Entitic vol] 8.2 fL 6.3-10.7 [facility] Platelet morphology finding [Identifier] in BloodOrdered By: Farhad Lashonda on 06-11-2022 Platelet morphology finding Nom (Bld) Normal Normal [facility] Platelets Auto (Bld) [#/Vol] Ordered By: Farhad Gallego on 06-11-2022 Platelets (Bld) [#/Vol] 165 10*3/uL 150-450 [facility] Polychromasia [Presence] in Blood by Light microscopyOrdered By: Farhad Gallego on 06-11-2022 Polychromasia LM Ql (Bld) Marked [facility] RBC Auto (Bld) [#/Vol]Ordere d By: Farhad Gallego on 06-11-2022 RBC (Bld) [#/Vol] 3.80 10*6/uL 3.60-5.00 [facility] RBC morphologyOrdered By: An scarlet Gallego on 06-11-2022 RBC morphology finding Nom (Bld) N/A [facility] Segmented neutrophils/100 WB C Manual cnt (Bld)Ordered By: Farhad Gallego on 06-11-2022 Segmented neutrophils/100 WBC (Bld) 32 % 50-70 [facility] WBC Auto (Bld) [#/Vol]Ordere d By: Farhad Gallego on 06-11-2022 WBC (Bld) [#/Vol] 5.0 10*3/uL 3.8-11.6 [facility] Activated partial thrombopla stin time (aPTT) in platelet poor plasma by coagulation aOrdered By: Jean Jett on 06-10-2022 aPTT Coag (PPP) [Time] 29.8 s 25.1-36.5 [facility] Anisocytosis LM Ql (Bld)Orde red By: Jean Jett on 06-10-2022 Anisocytosis Ql (Bld) Marked [facility] Basophils Auto (Bld) [#/Vol] Ordered By: Jean Jett on 06-10-2022 Basophils (Bld) [#/Vol] 0.1 10*3/uL 0.0-0.2 [facility] Basophils/100 WBC Auto (Bld) Ordered By: Jean Jett on 06-10-2022 Basophils/100 WBC (Bld) 1.8 % . [facility] Bilirubin Test strip Ql (U)O rdered By: Jean Jett on 06-10-2022 Bilirubin Ql (U) Negative Negative [facility] CT biopsyOrdered By: Jean Jett on 06-10-2022 Transferrin [Mass/Vol] 380 mg/dL 180-[facility] Calcium [Mass/volume] in Ser um or PlasmaOrdered By: Jean Jett on 06-10-2022 Calcium [Mass/Vol] 8.6 mg/dL 8.2-10.2 [facility] Carbon dioxide, total [Moles /volume] in Serum or PlasmaOrdered By: Jean Jett on 06-10-2022 CO2 [Moles/Vol] 23.3 mmol/L 22.0-30.0 [facility] Chloride [Moles/volume] in S betty or PlasmaOrdered By: Jean Jett on 06-10-2022 Chloride [Moles/Vol] 106 mmol/L 95-114 [facility] Color Auto (U)Ordered By: Luis Fernando Jett on 06-10-2022 Color (U) Yellow Yellow [facility] Creatine kinase [Enzymatic a ctivity/volume] in Serum or PlasmaOrdered By: Jean Jett on 06-10-2022 CK [Catalytic activity/Vol] 100 U/L 22-269 [facility] Creatinine and Glomerular fi ltration rate.predicted panel (S/P/Bld)Ordered By: Jean Jett on 06-10-2022 Creatinine [Mass/Vol] 0.71 mg/dL 0.44-1.03 [facility] Eosinophils Auto (Bld) [#/Vo l]Ordered By: Jean Jett on 06-10-2022 Eosinophils (Bld) [#/Vol] 0.3 10*3/uL 0.0-0.45 [facility] Eosinophils/100 WBC Auto (Bl d)Ordered By: Jean Jett on 06-10-2022 Eosinophils/100 WBC (Bld) 5.0 % . [facility] Erythrocyte distribution wid th Auto (RBC) [Ratio]Ordered By: Jean Jett on 06-10-2022 Erythrocyte distribution width (RBC) [Ratio] 24.6 % 11.9-15.3 [facility] Estimated glomerular filtrat ion rate (GFR) non- AmericanOrdered By: Jean Jett on 06-10-2022 GFR/1.73 sq M.predicted among non-blacks MDRD (S/P/Bld) [Vol rate/Area] > 60 mL/Min [facility] Fecal occult blood detection by immunochemistryOrdered By: Jean Jett on 06-10-2022 Hemoglobin.gastrointes tinal Ql (Stl) [facility] Glucose [Mass/volume] in Ser um or PlasmaOrdered By: Jean Jett on 06-10-2022 Glucose [Mass/Vol] 94 mg/dL 70-100 [facility] Comment on above: ADA recommended refe rence rangeRandom Glucose Reference Range is dependent on time and content of last meal. Glucose of more than 200 mg/dL in a nonstressed, ambulatory subject supports the diagnosis of Diabetes Mellitus. HCG ( test) IA.rapi d Ql (U)Ordered By: Jean Jett on 06-10-2022 HCG ( test) Ql (U) Negative [facility] Hematocrit Auto (Bld) [Volum e fraction]Ordered By: Jean Jett on 06-10-2022 Hematocrit (Bld) [Volume fraction] 23.8 % 34.0-46.4 [facility] Hemoglobin [Mass/volume] in BloodOrdered By: Jean Jett on 06-10-2022 Hemoglobin (Bld) [Mass/Vol] 7.3 g/dL 11.8-15.4 [facility] Hypochromia LM Ql (Bld)Order ed By: Jean Jett on 06-10-2022 Hypochromia Ql (Bld) Marked [facility] Iron [Mass/volume] in Serum or PlasmaOrdered By: Jean Jett on 06-10-2022 Iron [Mass/Vol] 25 ug/dL 40-150 [facility] Iron binding capacity [Mass/ volume] in Serum or PlasmaOrdered By: Jean Jett on 06-10-2022 Iron binding capacity [Mass/Vol] 532 ug/dL 255-450 [facility] Iron saturation [Mass Fracti on] in Serum or PlasmaOrdered By: Jean Jett on 06-10-2022 Iron saturation [Mass fraction] 4.7 % 20-50 [facility] Ketones Auto test strip (U) [Mass/Vol]Ordered By: Jean Jett on 06-10-2022 Ketones (U) [Mass/Vol] Negative Negative [facility] - Chemistry and C hemistry - challengeOrdered By: Jean Jett on 06-10-2022 Magnesium [Mass/Vol] 1.9 mg/dL 1.6-2.6 [facility] Natriuretic peptide B (Bld) [Mass/Vol] 23.0 pg/mL 5-100 [facility] - CoagulationOrde red By: Jean Jett on 06-10-2022 PT Coag (PPP) [Time] 12.9 s 9.0-12.9 [facility] Leukocytes [#/volume] correc terry for nucleated erythrocytes in Blood by Automated counOrdered By: Jean Jett on 06-10-2022 WBC corrected for nucl RBC Auto (Bld) [#/Vol] 5.3 10*3/uL 3.8-11.6 [facility] Lymphocytes Auto (Bld) [#/Vo l]Ordered By: Jean Jett on 06-10-2022 Lymphocytes (Bld) [#/Vol] 2.2 10*3/uL 1.00-4.8 [facility] Lymphocytes/100 WBC Auto (Bl d)Ordered By: Jean Jett on 06-10-2022 Lymphocytes/100 WBC (Bld) 41.3 % . [facility] MCH Auto (RBC) [Entitic mass ]Ordered By: Jean Jett on 06-10-2022 MCH (RBC) [Entitic mass] 19.7 pg 24.7-34.3 [facility] MCHC Auto (RBC) [Mass/Vol]Or dered By: Jean Jett on 06-10-2022 MCHC (RBC) [Mass/Vol] 30.6 g/dL 32.0-35.0 [facility] MCV Auto (RBC) [Entitic vol] Ordered By: Jean Jett on 06-10-2022 MCV (RBC) [Entitic vol] 64.5 fL 80-100 [facility] Microcytes LM Ql (Bld)Ordere d By: Jean Jett on 06-10-2022 Microcytes Ql (Bld) Marked [facility] Monocyte distribution width [Entitic volume] in Blood by AutomatedOrdered By: Jean Jett on 06-10-2022 Monocyte distribution width Auto (Bld) [Entitic vol] 17.54 % 0.00-20.00 [facility] Monocytes Auto (Bld) [#/Vol] Ordered By: Jean Jett on 06-10-2022 Monocytes (Bld) [#/Vol] 0.4 10*3/uL 0.0-0.8 [facility] Monocytes/100 WBC Auto (Bld) Ordered By: Jean Jett on 06-10-2022 Monocytes/100 WBC (Bld) 6.8 % . [facility] Neutrophils Auto (Bld) [#/Vo l]Ordered By: Jean Jett on 06-10-2022 Neutrophils (Bld) [#/Vol] 2.4 10*3/uL 1.8-7.7 [facility] Neutrophils/100 WBC Auto (Bl d)Ordered By: Jean Jett on 06-10-2022 Neutrophils/100 WBC (Bld) 45.1 % . [facility] Nitrite Test strip Ql (U)Ord ered By: Jean Jett on 06-10-2022 Nitrite Ql (U) Negative Negative [facility] No Panel InformationOrdered By: Jean Jett on 06-10-2022 Estimated GFR () > 60 mL/Min [facility] Comment on above: GFR estimated refere nce range: According to KDOQI guidelines, <60 ml/min/1.73m2 is sufficient to diagnose a patient with chronic kidney disease. Pharmacy Creatinine Clearance (Chem 149.49 [facility] Nucleated erythrocytes [Pres ence] in Blood by Automated countOrdered By: Jean Jett on 06-10-2022 Nucleated RBC Auto Ql (Bld) 0.1 /100{WBC} 0-0.5 [facility] Ovalocyte detectionOrdered B y: Jean Jett on 06-10-2022 Ovalocytes LM Ql (Bld) [facility] Platelet adequacy [Presence] in Blood by Light microscopyOrdered By: Jean Jett on 06-10-2022 Platelets LM Ql (Bld) Normal Normal [facility] Platelet mean volume Auto (B ld) [Entitic vol]Ordered By: Jean Jett on 06-10-2022 Platelet mean volume (Bld) [Entitic vol] 8.3 fL 6.3-10.7 [facility] Platelet morphology finding [Identifier] in BloodOrdered By: Jean Jett on 06-10-2022 Platelet morphology finding Nom (Bld) Normal Normal [facility] Platelet poor plasma interna tional normalized ratio (INR) by coagulation assay (relatOrdered By: Jean Jett on 06-10-2022 INR Coag (PPP) [Relative time] 1.1 {INR} [facility] Comment on above: INR Therapeutic Rang [...] 06-10-2022 Platelets (Bld) [#/Vol] 202 10*3/uL 150-450 [facility] Poikilocytosis [Presence] in Blood by Light microscopyOrdered By: Jean Jett on 06-10-2022 Poikilocytosis LM Ql (Bld) [facility] Polychromasia [Presence] in Blood by Light microscopyOrdered By: Jean Jett on 06-10-2022 Polychromasia LM Ql (Bld) [facility] Potassium [Moles/volume] in Serum or PlasmaOrdered By: Jean Jett on 06-10-2022 Potassium [Moles/Vol] 4.1 mmol/L 3.5-5.1 [facility] Protein Auto test strip (U) [Mass/Vol]Ordered By: Jean Jett on 06-10-2022 Protein (U) [Mass/Vol] Negative Negative [facility] RBC Auto (Bld) [#/Vol]Ordere d By: Jean Jett on 06-10-2022 RBC (Bld) [#/Vol] 3.69 10*6/uL 3.60-5.00 [facility] RBC morphologyOrdered By: Luis Fernando Jett on 06-10-2022 RBC morphology finding Nom (Bld) N/A [facility] Serum or plasma anion gap de terminationOrdered By: Jean Jett on 06-10-2022 Anion gap [Moles/Vol] 10.8 mmol/L 6.0-15.0 [facility] Sodium [Moles/volume] in Ser um or PlasmaOrdered By: Jean Jett on 06-10-2022 Sodium [Moles/Vol] 136 mmol/L 136-146 [facility] Specific gravity Auto test s trip (U) [Rel density]Ordered By: Jean Jett on 06-10-2022 Specific gravity (U) [Rel density] 1.010 1.001-1.030 [facility] Target cellsOrdered By: Mackenzie Jett on 06-10-2022 Target cells LM Ql (Bld) Slight [facility] Teardrop cell detectionOrder ed By: Jean Jett on 06-10-2022 Dacrocytes LM Ql (Bld) Slight [facility] Troponin I.cardiac [Mass/vol ume] in Serum or Plasma by High sensitivity methodOrdered By: Jean Jett on 06-10-2022 Troponin I.cardiac High sensitivity method [Mass/Vol] < 3 pg/mL 0-15 [facility] Urea nitrogen [Mass/volume] in Serum or PlasmaOrdered By: Jean Jett on 06-10-2022 Urea nitrogen [Mass/Vol] 9 mg/dL 01-08 [facility] Urine clarity by refractomet ry automatedOrdered By: Jean Jett on 06-10-2022 Clarity Refractometry automated (U) Clear Clear [facility] Urine glucose measurement by automated test strip (mass/volume)Ordered By: Jean Jett on 06-10-2022 Glucose Auto test strip (U) [Mass/Vol] Normal mg/dL Normal [facility] Urine hemoglobin detection b y automated test stripOrdered By: Jean Jett on 06-10-2022 Hemoglobin Auto test strip Ql (U) Negative Negative [facility] Urine leukocyte esterase det ection by automated test stripOrdered By: Jean Jett on 06-10-2022 Leukocyte esterase Auto test strip Ql (U) Negative Negative [facility] Urobilinogen Auto test strip (U) [Mass/Vol]Ordered By: Jean Jett on 06-10-2022 Urobilinogen (U) [Mass/Vol] Normal mg/dL Normal [facility] WBC Auto (Bld) [#/Vol]Ordere d By: Jean Jett on 06-10-2022 WBC (Bld) [#/Vol] 5.3 10*3/uL 3.8-11.6 [facility] pH Auto test strip (U)Ordere d By: Jean Jett on 06-10-2022 pH (U) 5.5 [pH] 5.0-9.0 [facility] Alkaline phosphatase [Enzyma tic activity/volume] in Serum or PlasmaOrdered By: Julieta Jefferson on 06-09-2022 ALP [Catalytic activity/Vol] 39 U/L 32-92 [facility] Anisocytosis LM Ql (Bld)Orde red By: Julieta Jefferson on 06-09-2022 Anisocytosis Ql (Bld) Marked [facility] Aspartate aminotransferase [ Enzymatic activity/volume] in Serum or PlasmaOrdered By: Julieta Jefferson on 06-09-2022 AST [Catalytic activity/Vol] 15 U/L 10-42 [facility] Basophils Auto (Bld) [#/Vol] Ordered By: Julieta Jefferson on 06-09-2022 Basophils (Bld) [#/Vol] 0.1 10*3/uL 0.0-0.2 [facility] Basophils/100 WBC Auto (Bld) Ordered By: Julieta Jefferson on 06-09-2022 Basophils/100 WBC (Bld) 1.4 % . [facility] Body fluid albumin measureme nt (mass/volume)Ordered By: Julieta Jefferson on 06-09-2022 Albumin (Body fld) [Mass/Vol] 4.1 g/dL 3.2-5.5 [facility] Calcium [Mass/volume] in Ser um or PlasmaOrdered By: Julieta Jefferson on 06-09-2022 Calcium [Mass/Vol] 9.0 mg/dL 8.2-10.2 [facility] Carbon dioxide, total [Moles /volume] in Serum or PlasmaOrdered By: Julieta Jefferson on 06-09-2022 CO2 [Moles/Vol] 23.3 mmol/L 22.0-30.0 [facility] Cholesterol [Mass/volume] in Serum or PlasmaOrdered By: Julieta Jefferson on 06-09-2022 Cholesterol [Mass/Vol] 137 mg/dL 140-200 [facility] Comment on above: Chol less than 200 m g/dl low riskChol 201-239 mg/dl borderline riskChol 240 mg/dl and greater high risk Cholesterol in LDL Calc [Mas s/Vol]Ordered By: Julieta Jefferson on 06-09-2022 Cholesterol in LDL [Mass/Vol] 72 mg/dL 0-100 [facility] Comment on above: LDL ATP III CLASSIFI CATIONLDL less than 100 mg/dL OptimalLDL 100-129 mg/dL Near or above optimalLDL 130-159 mg/dL Borderline highLDL 160-189 mg/dL HighLDL greater than 189 mg/dL Very high Cholesterol in VLDL Calc [Ma ss/Vol]Ordered By: Julieta Jefferson on 06-09-2022 Cholesterol in VLDL [Mass/Vol] 9 mg/dL [facility] Creatinine and Glomerular fi ltration rate.predicted panel (S/P/Bld)Ordered By: Julieta Jefferson on 06-09-2022 Creatinine [Mass/Vol] 0.59 mg/dL 0.44-1.03 [facility] Eosinophils Auto (Bld) [#/Vo l]Ordered By: Julieta Jefferson on 06-09-2022 Eosinophils (Bld) [#/Vol] 0.3 10*3/uL 0.0-0.45 [facility] Eosinophils/100 WBC Auto (Bl d)Ordered By: Julieta Jefferson on 06-09-2022 Eosinophils/100 WBC (Bld) 6.8 % . [facility] Erythrocyte distribution wid th Auto (RBC) [Ratio]Ordered By: Julieta Jefferson on 06-09-2022 Erythrocyte distribution width (RBC) [Ratio] 24.5 % 11.9-15.3 [facility] Estimated glomerular filtrat ion rate (GFR) non- AmericanOrdered By: Julieta Jefferson on 06-09-2022 GFR/1.73 sq M.predicted among non-blacks MDRD (S/P/Bld) [Vol rate/Area] > 60 mL/Min [facility] Globulin Calc (S) [Mass/Vol] Ordered By: Julieta Jefferson on 06-09-2022 Globulin (S) [Mass/Vol] 2.3 g/dL [facility] Glucose mean value [Mass/vol ume] in Blood Estimated from glycated hemoglobinOrdered By: Julieta Jefferson on 06-09-2022 Average glucose Estimated from glycated hemoglobin (Bld) [Mass/Vol] 97 mg/dL [facility] Hematocrit Auto (Bld) [Volum e fraction]Ordered By: Julieta Jefferson on 06-09-2022 Hematocrit (Bld) [Volume fraction] 26.0 % 34.0-46.4 [facility] Hemoglobin A1c percentageOrd ered By: Julieta Jefferson on 06-09-2022 HbA1c (Bld) [Mass fraction] 5.0 % 4.3-5.6 [facility] Comment on above: Increased risk for d iabetes: 5.7 - 6.4diabetes: >6.4glycemic control for adults with diabetes: <7.0 Hemoglobin [Mass/volume] in BloodOrdered By: Julieta Jefferson on 06-09-2022 Hemoglobin (Bld) [Mass/Vol] 7.8 g/dL 11.8-15.4 [facility] Hypochromia LM Ql (Bld)Order ed By: Julieta Jefferson on 06-09-2022 Hypochromia Ql (Bld) Moderate [facility] Leukocytes [#/volume] correc terry for nucleated erythrocytes in Blood by Automated counOrdered By: Julieta Jefferson on 06-09-2022 WBC corrected for nucl RBC Auto (Bld) [#/Vol] 4.6 10*3/uL 3.8-11.6 [facility] Lymphocytes Auto (Bld) [#/Vo l]Ordered By: Julieta Jefferson on 06-09-2022 Lymphocytes (Bld) [#/Vol] 2.0 10*3/uL 1.00-4.8 [facility] Lymphocytes/100 WBC Auto (Bl d)Ordered By: Julieta Jefferson on 06-09-2022 Lymphocytes/100 WBC (Bld) 44.2 % . [facility] MCH Auto (RBC) [Entitic mass ]Ordered By: Julieta Jefferson on 06-09-2022 MCH (RBC) [Entitic mass] 19.7 pg 24.7-34.3 [facility] MCHC Auto (RBC) [Mass/Vol]Or dered By: Julieta Jefferson on 06-09-2022 MCHC (RBC) [Mass/Vol] 30.2 g/dL 32.0-35.0 [facility] MCV Auto (RBC) [Entitic vol] Ordered By: Julieta Jefferson on 06-09-2022 MCV (RBC) [Entitic vol] 65.3 fL 80-100 [facility] Microcytes LM Ql (Bld)Ordere d By: Julieta Jefferson on 06-09-2022 Microcytes Ql (Bld) Marked [facility] Monocytes Auto (Bld) [#/Vol] Ordered By: Julieta Jefferson on 06-09-2022 Monocytes (Bld) [#/Vol] 0.4 10*3/uL 0.0-0.8 [facility] Monocytes/100 WBC Auto (Bld) Ordered By: Julieta Jefferson on 06-09-2022 Monocytes/100 WBC (Bld) 8.9 % . [facility] Neutrophils Auto (Bld) [#/Vo l]Ordered By: Julieta Jefferson on 06-09-2022 Neutrophils (Bld) [#/Vol] 1.8 10*3/uL 1.8-7.7 [facility] Neutrophils/100 WBC Auto (Bl d)Ordered By: Julieta Jefferson on 06-09-2022 Neutrophils/100 WBC (Bld) 38.7 % . [facility] No Panel InformationOrdered By: Julieta Jefferson on 06-09-2022 Estimated GFR () > 60 mL/Min [facility] Comment on above: GFR estimated refere nce range: According to KDOQI guidelines, <60 ml/min/1.73m2 is sufficient to diagnose a patient with chronic kidney disease. Pharmacy Creatinine Clearance (Chem N/A [facility] Nucleated erythrocytes [Pres ence] in Blood by Automated countOrdered By: Julieta Jefferson on 06-09-2022 Nucleated RBC Auto Ql (Bld) 0.1 /100{WBC} 0-0.5 [facility] Platelet adequacy [Presence] in Blood by Light microscopyOrdered By: Julieta Jefferson on 06-09-2022 Platelets LM Ql (Bld) Normal Normal [facility] Platelet mean volume Auto (B ld) [Entitic vol]Ordered By: Julieta Jefferson on 06-09-2022 Platelet mean volume (Bld) [Entitic vol] 8.2 fL 6.3-10.7 [facility] Platelet morphology finding [Identifier] in BloodOrdered By: Julieta Jefferson on 06-09-2022 Platelet morphology finding Nom (Bld) Normal Normal [facility] Platelets Auto (Bld) [#/Vol] Ordered By: Julieta Jefferson on 06-09-2022 Platelets (Bld) [#/Vol] 200 10*3/uL 150-450 [facility] Poikilocytosis [Presence] in Blood by Light microscopyOrdered By: Julieta Jefferson on 06-09-2022 Poikilocytosis LM Ql (Bld) Slight [facility] Polychromasia [Presence] in Blood by Light microscopyOrdered By: Julieta Jefferson on 06-09-2022 Polychromasia LM Ql (Bld) Moderate [facility] Protein [Mass/volume] in Ser um or PlasmaOrdered By: Julieta Jefferson on 06-09-2022 Protein [Mass/Vol] 6.4 g/dL 6.1-7.9 [facility] RBC Auto (Bld) [#/Vol]Ordere d By: Julieta Jefferson on 06-09-2022 RBC (Bld) [#/Vol] 3.97 10*6/uL 3.60-5.00 [facility] RBC morphologyOrdered By: Guicho Jefferson on 06-09-2022 RBC morphology finding Nom (Bld) N/A [facility] Schistocytes [Presence] in B lood by Light microscopyOrdered By: Julieta Jefferson on 06-09-2022 Schistocytes LM Ql (Bld) Slight [facility] Serum or plasma alanine paredes otransferase measurement without P-5'-P (enzymatic activiOrdered By: Julieta Jefferson on 06-09-2022 ALT No additional P-5'-P [Catalytic activity/Vol] 14 U/L 10-60 [facility] Serum or plasma albumin/glob ulin mass ratioOrdered By: Julieta Jefferson on 02-22-2023 Albumin/Globulin [Mass ratio] 1.8 {ratio} [facility] Serum or plasma anion gap de terminationOrdered By: Julieta Jefferson on 06-09-2022 Anion gap [Moles/Vol] 11.5 mmol/L 6.0-15.0 [facility] Serum or plasma calcitriol m easurement (mass/volume)Ordered By: Julieta Jefferson on 06-09-2022 1,25-dihydroxyvitamin D3 [Mass/Vol] 60.5 pg/mL 24.8-81.5 [facility] Comment on above: Performed at: - [address] [id number] Director: Jon Horton MD, Phone: [phone] Serum or plasma chloride robel surement (moles/volume)Ordered By: Julieta Jefferson on 06-09-2022 Chloride [Moles/Vol] 106 mmol/L 95-114 [facility] Serum or plasma glucose kelly urement (mass/volume)Ordered By: Julieta Jefferson on 06-09-2022 Glucose [Mass/Vol] 78 mg/dL 70-100 [facility] Comment on above: ADA recommended refe rence rangeRandom Glucose Reference Range is dependent on time and content of last meal. Glucose of more than 200 mg/dL in a nonstressed, ambulatory subject supports the diagnosis of Diabetes Mellitus. Serum or plasma high density lipoprotein (HDL) cholesterol measurementOrdered By: Julieta Jefferson on 06-09-2022 Cholesterol in HDL [Mass/Vol] 56 mg/dL 35-85 [facility] Comment on above: HDL CHOL ATP-III CLA SSIFICATION Cardiovascular RiskHDL > or equal to 60 mg/dL LOWHDL < 40 mg/dL HIGH Serum or plasma potassium me asurement (moles/volume)Ordered By: Julieta Jefferson on 06-09-2022 Potassium [Moles/Vol] 3.8 mmol/L 3.5-5.1 [facility] Serum or plasma sodium measu rement (moles/volume)Ordered By: Julieta Jefferson on 06-09-2022 Sodium [Moles/Vol] 137 mmol/L 136-146 [facility] Serum or plasma total biliru bin measurement (mass/volume)Ordered By: Julieta Jefferson on 06-09-2022 Bilirubin [Mass/Vol] 0.3 mg/dL 0.3-1.2 [facility] Serum or plasma total choles terol/high density lipoprotein (HDL) cholesterol mass ratOrdered By: Julieta Jefferson on 06-09-2022 Cholesterol.total/Chol esterol in HDL [Mass ratio] 2.4 {ratio} <5.0 [facility] TSH DL <= 0.005 mIU/L QnOrde red By: Julieta Jefferson on 06-09-2022 TSH Qn 4.10 m[IU]/L 0.45-5.33 [facility] Teardrop cell detectionOrder ed By: Julieta Jefferson on 06-09-2022 Dacrocytes LM Ql (Bld) Slight [facility] Triglyceride [Mass/volume] i n Serum or PlasmaOrdered By: Julieta Jefferson on 06-09-2022 Triglyceride [Mass/Vol] 45 mg/dL 35-149 [facility] Comment on above: TRIG ATP III CLASSIF ICATIONTRIG less than 150 mg/dL NormalTRIG 150-199 mg/dL Borderline highTRIG 200-500 mg/dL High TRIG greater than 500 mg/dL Very highStandard traceable to the Center for Disease Conrtrol and Prevention (CDC) test method. Urea nitrogen [Mass/volume] in Serum or PlasmaOrdered By: Julieta Jefferson on 06-09-2022 Urea nitrogen [Mass/Vol] 6 mg/dL 9-23 [facility] WBC Auto (Bld) [#/Vol]Ordere d By: Julieta Jefferson on 06-09-2022 WBC (Bld) [#/Vol] 4.6 10*3/uL 3.8-11.6 [facility] Urine 10 SGon 04-21-2022 Albumin DL <= 20 mg/L (U) [Mass/Vol] Negative Vetr Other pH (U) 7.0 [pH] Vetr Other Urine 10 SG Negative Vetr Other Urine 10 SG 1.020 Vetr Other Urine 10 SG large Vetr Other Urine Cultureon 04-21-2022 Bacteria identified Cx Nom (U) Vetr Other Urine culture routineOrdered By: Amanda Ford on 04-21-2022 Bacteria identified Cx Nom (U) 2 Days [facility] Activated partial thrombopla stin time (aPTT) in platelet poor plasma by coagulation aOrdered By: Phu Hdz on 04-10-2022 aPTT Coag (PPP) [Time] 30.4 s 25.1-36.5 [facility] Automated erythrocytes count in urine sediment (number/area)Ordered By: Jean Jett on 04-10-2022 RBC Auto (Urine sed) [#/Area] Innumerable [HPF] 0-4 [facility] Automated leukocytes count i n urine sediment (number/area)Ordered By: Jean Jett on 04-10-2022 WBC Auto (Urine sed) [#/Area] 3-4 [HPF] 0-4 [facility] Automated urine sediment mukesh cium oxalate crystal count by microscopy (number/high powOrdered By: Jean Jett on 04-10-2022 Calcium oxalate crystals LM.HPF (Urine sed) [#/Area] 1+ [HPF] [facility] Basophils Auto (Bld) [#/Vol] Ordered By: Jean Jett on 04-10-2022 Basophils (Bld) [#/Vol] 0.0 10*3/uL 0.0-0.2 [facility] Basophils/100 WBC Auto (Bld) Ordered By: Jean Jett on 04-10-2022 Basophils/100 WBC (Bld) 0.5 % . [facility] Bilirubin Test strip Ql (U)O rdered By: Jean Jett on 04-10-2022 Bilirubin Ql (U) 1+ Negative [facility] Casts typing in urine sedime nt by light microscopyOrdered By: Jean Jett on 04-10-2022 Casts LM Nom (Urine sed) None seen [LPF] None Seen [facility] Color Auto (U)Ordered By: Luis Fernando Jett on 04-10-2022 Color (U) Red Yellow [facility] Creatinine and Glomerular fi ltration rate.predicted panel (S/P/Bld)Ordered By: Jean Jett on 04-10-2022 Creatinine [Mass/Vol] 0.68 mg/dL 0.44-1.03 [facility] Eosinophils Auto (Bld) [#/Vo l]Ordered By: Jean Jett on 04-10-2022 Eosinophils (Bld) [#/Vol] 0.2 10*3/uL 0.0-0.45 [facility] Eosinophils/100 WBC Auto (Bl d)Ordered By: Jean Jett on 04-10-2022 Eosinophils/100 WBC (Bld) 2.1 % . [facility] Erythrocyte distribution wid th Auto (RBC) [Ratio]Ordered By: Jean Jett on 04-10-2022 Erythrocyte distribution width (RBC) [Ratio] 14.3 % 11.9-15.3 [facility] Estimated glomerular filtrat ion rate (GFR) non- AmericanOrdered By: Jean Jett on 04-10-2022 GFR/1.73 sq M.predicted among non-blacks MDRD (S/P/Bld) [Vol rate/Area] > 60 mL/Min [facility] HCG ( test) IA.rapi d Ql (U)Ordered By: Jean Jett on 04-10-2022 HCG ( test) Ql (U) Negative [facility] Hematocrit Auto (Bld) [Volum e fraction]Ordered By: Jean Jett on 04-10-2022 Hematocrit (Bld) [Volume fraction] 29.4 % 34.0-46.4 [facility] Hemoglobin [Mass/volume] in BloodOrdered By: Jean Jett on 04-10-2022 Hemoglobin (Bld) [Mass/Vol] 9.9 g/dL 11.8-15.4 [facility] Ketones Auto test strip (U) [Mass/Vol]Ordered By: Jean Jett on 04-10-2022 Ketones (U) [Mass/Vol] Negative Negative [facility] Laboratory - CoagulationOrde red By: Phu Hdz on 04-10-2022 PT Coag (PPP) [Time] 12.4 s 9.0-12.9 [facility] Laboratory - UrinalysisOrder ed By: Jean Jett on 04-10-2022 Hyaline casts LM Ql (Urine sed) None seen [LPF] 0-8 [facility] Leukocytes [#/volume] correc terry for nucleated erythrocytes in Blood by Automated counOrdered By: Jean Jett on 04-10-2022 WBC corrected for nucl RBC Auto (Bld) [#/Vol] 8.5 10*3/uL 3.8-11.6 [facility] Lymphocytes Auto (Bld) [#/Vo l]Ordered By: Jean Jett on 04-10-2022 Lymphocytes (Bld) [#/Vol] 2.1 10*3/uL 1.00-4.8 [facility] Lymphocytes/100 WBC Auto (Bl d)Ordered By: Jean Jett on 04-10-2022 Lymphocytes/100 WBC (Bld) 25.2 % . [facility] MCH Auto (RBC) [Entitic mass ]Ordered By: Jean Jett on 04-10-2022 MCH (RBC) [Entitic mass] 28.8 pg 24.7-34.3 [facility] MCHC Auto (RBC) [Mass/Vol]Or dered By: Jean Jett on 04-10-2022 MCHC (RBC) [Mass/Vol] 33.6 g/dL 32.0-35.0 [facility] MCV Auto (RBC) [Entitic vol] Ordered By: Jean Jett on 04-10-2022 MCV (RBC) [Entitic vol] 85.7 fL 80-100 [facility] Monocyte distribution width [Entitic volume] in Blood by AutomatedOrdered By: Jean Jett on 04-10-2022 Monocyte distribution width Auto (Bld) [Entitic vol] 14.20 % 0.00-20.00 [facility] Monocytes Auto (Bld) [#/Vol] Ordered By: Jean Jett on 04-10-2022 Monocytes (Bld) [#/Vol] 0.5 10*3/uL 0.0-0.8 [facility] Monocytes/100 WBC Auto (Bld) Ordered By: Jean Jett on 04-10-2022 Monocytes/100 WBC (Bld) 5.7 % . [facility] Neutrophils Auto (Bld) [#/Vo l]Ordered By: Jean Jett on 04-10-2022 Neutrophils (Bld) [#/Vol] 5.6 10*3/uL 1.8-7.7 [facility] Neutrophils/100 WBC Auto (Bl d)Ordered By: Jean Jett on 04-10-2022 Neutrophils/100 WBC (Bld) 66.5 % . [facility] Nitrite Test strip Ql (U)Ord ered By: Jean Jett on 04-10-2022 Nitrite Ql (U) Positive Negative [facility] No Panel InformationOrdered By: Jean Jett on 04-10-2022 Estimated GFR () > 60 mL/Min [facility] Comment on above: GFR estimated refere nce range: According to KDOQI guidelines, <60 ml/min/1.73m2 is sufficient to diagnose a patient with chronic kidney disease. Pharmacy Creatinine Clearance (Chem 152.39 [facility] Nucleated erythrocytes [Pres ence] in Blood by Automated countOrdered By: Jean Jett on 04-10-2022 Nucleated RBC Auto Ql (Bld) 0.0 /100{WBC} 0-0.5 [facility] Platelet mean volume Auto (B ld) [Entitic vol]Ordered By: Jean Jett on 04-10-2022 Platelet mean volume (Bld) [Entitic vol] 6.9 fL 6.3-10.7 [facility] Platelet poor plasma interna tional normalized ratio (INR) by coagulation assay (relatOrdered By: Phu Hdz on 04-10-2022 INR Coag (PPP) [Relative time] 1.1 {INR} [facility] Comment on above: INR Therapeutic Rang [...] 04-10-2022 Platelets (Bld) [#/Vol] 263 10*3/uL 150-450 [facility] Protein Auto test strip (U) [Mass/Vol]Ordered By: Jean Jett on 04-10-2022 Protein (U) [Mass/Vol] 100 mg/dL Negative [facility] RBC Auto (Bld) [#/Vol]Ordere d By: Jean Jett on 04-10-2022 RBC (Bld) [#/Vol] 3.43 10*6/uL 3.60-5.00 [facility] Serum or plasma anion gap de terminationOrdered By: Jean Jett on 04-10-2022 Anion gap [Moles/Vol] 8.5 mmol/L 6.0-15.0 [facility] Serum or plasma calcium kelly urement (mass/volume)Ordered By: Jean Jett on 04-10-2022 Calcium [Mass/Vol] 8.6 mg/dL 8.2-10.2 [facility] Serum or plasma chloride robel surement (moles/volume)Ordered By: Jean Jett on 04-10-2022 Chloride [Moles/Vol] 106 mmol/L 95-114 [facility] Serum or plasma glucose kelly urement (mass/volume)Ordered By: Jean Jett on 04-10-2022 Glucose [Mass/Vol] 99 mg/dL 70-100 [facility] Comment on above: ADA recommended refe rence rangeRandom Glucose Reference Range is dependent on time and content of last meal. Glucose of more than 200 mg/dL in a nonstressed, ambulatory subject supports the diagnosis of Diabetes Mellitus. Serum or plasma potassium me asurement (moles/volume)Ordered By: Jean Jett on 04-10-2022 Potassium [Moles/Vol] 3.6 mmol/L 3.5-5.1 [facility] Serum or plasma sodium measu rement (moles/volume)Ordered By: Jean Jett on 04-10-2022 Sodium [Moles/Vol] 138 mmol/L 136-146 [facility] Serum or plasma total carbon dioxide measurement (moles/volume)Ordered By: Jean Jett on 04-10-2022 CO2 [Moles/Vol] 27.1 mmol/L 22.0-30.0 [facility] Serum or plasma urea nitroge n measurement (mass/volume)Ordered By: Jean Jett on 04-10-2022 Urea nitrogen [Mass/Vol] 5 mg/dL 01-08 [facility] Specific gravity Auto test s trip (U) [Rel density]Ordered By: Jean Jett on 04-10-2022 Specific gravity (U) [Rel density] 1.033 1.001-1.030 [facility] Squamous epithelial cells de tection in urine sediment by light microscopyOrdered By: Jean Jett on 04-10-2022 Epithelial cells.squamous LM Ql (Urine sed) 3-4 [HPF] 0-2 [facility] Urine bacteria detection by automated methodOrdered By: Jean Jett on 04-10-2022 Bacteria Auto Ql (U) None seen None Seen [facility] Urine clarity by refractomet ry automatedOrdered By: Jean Jett on 04-10-2022 Clarity Refractometry automated (U) Turbid Clear [facility] Urine culture routineOrdered By: Jean Jett on 04-10-2022 Bacteria identified Cx Nom (U) 2 Days [facility] Urine glucose measurement by automated test strip (mass/volume)Ordered By: Jean Jett on 04-10-2022 Glucose Auto test strip (U) [Mass/Vol] Normal mg/dL Normal [facility] Urine hemoglobin detection b y automated test stripOrdered By: Jean Jett on 04-10-2022 Hemoglobin Auto test strip Ql (U) 3+ Negative [facility] Urine leukocyte esterase det ection by automated test stripOrdered By: Jean Jett on 04-10-2022 Leukocyte esterase Auto test strip Ql (U) 2+ Negative [facility] Urine sediment crystal ident ification by light microscopyOrdered By: Jean Jett on 04-10-2022 Crystals LM Nom (Urine sed) None seen [HPF] [facility] Urobilinogen Auto test strip (U) [Mass/Vol]Ordered By: Jean Jett on 04-10-2022 Urobilinogen (U) [Mass/Vol] Normal mg/dL Normal [facility] WBC Auto (Bld) [#/Vol]Ordere d By: Jean Jett on 04-10-2022 WBC (Bld) [#/Vol] 8.5 10*3/uL 3.8-11.6 [facility] pH Auto test strip (U)Ordere d By: Jean Jett on 04-10-2022 pH (U) 5.5 [pH] 5.0-9.0 [facility] Basophils Auto (Bld) [#/Vol] Ordered By: PROVIDER TEMP on 04-08-2022 Basophils (Bld) [#/Vol] 0.0 10*3/uL 0.0-0.2 [facility] Basophils/100 WBC Auto (Bld) Ordered By: PROVIDER TEMP on 04-08-2022 Basophils/100 WBC (Bld) 0.4 % . [facility] Eosinophils Auto (Bld) [#/Vo l]Ordered By: PROVIDER TEMP on 04-08-2022 Eosinophils (Bld) [#/Vol] 0.4 10*3/uL 0.0-0.45 [facility] Eosinophils/100 WBC Auto (Bl d)Ordered By: PROVIDER TEMP on 04-08-2022 Eosinophils/100 WBC (Bld) 5.5 % . [facility] Erythrocyte distribution wid th Auto (RBC) [Ratio]Ordered By: PROVIDER TEMP on 04-08-2022 Erythrocyte distribution width (RBC) [Ratio] 14.1 % 11.9-15.3 [facility] Hematocrit Auto (Bld) [Volum e fraction]Ordered By: PROVIDER TEMP on 04-08-2022 Hematocrit (Bld) [Volume fraction] 33.9 % 34.0-46.4 [facility] Hemoglobin [Mass/volume] in BloodOrdered By: PROVIDER TEMP on 04-08-2022 Hemoglobin (Bld) [Mass/Vol] 11.4 g/dL 11.8-15.4 [facility] Leukocytes [#/volume] correc terry for nucleated erythrocytes in Blood by Automated counOrdered By: PROVIDER TEMP on 04-08-2022 WBC corrected for nucl RBC Auto (Bld) [#/Vol] 8.1 10*3/uL 3.8-11.6 [facility] Lymphocytes Auto (Bld) [#/Vo l]Ordered By: PROVIDER TEMP on 04-08-2022 Lymphocytes (Bld) [#/Vol] 2.3 10*3/uL 1.00-4.8 [facility] Lymphocytes/100 WBC Auto (Bl d)Ordered By: PROVIDER TEMP on 04-08-2022 Lymphocytes/100 WBC (Bld) 28.1 % . [facility] MCH Auto (RBC) [Entitic mass ]Ordered By: PROVIDER TEMP on 04-08-2022 MCH (RBC) [Entitic mass] 29.0 pg 24.7-34.3 [facility] MCHC Auto (RBC) [Mass/Vol]Or dered By: PROVIDER TEMP on 04-08-2022 MCHC (RBC) [Mass/Vol] 33.7 g/dL 32.0-35.0 [facility] MCV Auto (RBC) [Entitic vol] Ordered By: PROVIDER TEMP on 04-08-2022 MCV (RBC) [Entitic vol] 86.0 fL 80-100 [facility] Monocyte distribution width [Entitic volume] in Blood by AutomatedOrdered By: PROVIDER TEMP on 04-08-2022 Monocyte distribution width Auto (Bld) [Entitic vol] 13.83 % 0.00-20.00 [facility] Monocytes Auto (Bld) [#/Vol] Ordered By: PROVIDER TEMP on 04-08-2022 Monocytes (Bld) [#/Vol] 0.5 10*3/uL 0.0-0.8 [facility] Monocytes/100 WBC Auto (Bld) Ordered By: PROVIDER TEMP on 04-08-2022 Monocytes/100 WBC (Bld) 6.7 % . [facility] Neutrophils Auto (Bld) [#/Vo l]Ordered By: PROVIDER TEMP on 04-08-2022 Neutrophils (Bld) [#/Vol] 4.8 10*3/uL 1.8-7.7 [facility] Neutrophils/100 WBC Auto (Bl d)Ordered By: PROVIDER TEMP on 04-08-2022 Neutrophils/100 WBC (Bld) 59.3 % . [facility] Nucleated erythrocytes [Pres ence] in Blood by Automated countOrdered By: PROVIDER TEMP on 04-08-2022 Nucleated RBC Auto Ql (Bld) 0.2 /100{WBC} 0-0.5 [facility] Platelet mean volume Auto (B ld) [Entitic vol]Ordered By: PROVIDER TEMP on 04-08-2022 Platelet mean volume (Bld) [Entitic vol] 7.0 fL 6.3-10.7 [facility] Platelets Auto (Bld) [#/Vol] Ordered By: PROVIDER TEMP on 04-08-2022 Platelets (Bld) [#/Vol] 199 10*3/uL 150-450 [facility] RBC Auto (Bld) [#/Vol]Ordere d By: PROVIDER TEMP on 04-08-2022 RBC (Bld) [#/Vol] 3.94 10*6/uL 3.60-5.00 [facility] WBC Auto (Bld) [#/Vol]Ordere d By: PROVIDER TEMP on 04-08-2022 WBC (Bld) [#/Vol] 8.1 10*3/uL 3.8-11.6 [facility] XR shoulder RT min 2V*on XR shoulder RT min 2V* [facility] [employer] Other XR shoulder RT min 2V* [facility] [employer] Other XR shoulder RT min 2V* [address] [place] [address] [employer] Other XR shoulder RT min 2V* [place] [address] [facility] [employer] Other XR shoulder RT min 2V* XRay Report N [facility] [employer] Other XR shoulder RT min 2V* Signed No rt [employer] Other XR shoulder RT min 2V* Patient: Meagan Sanders MR#: [id number] [employer] Other XR shoulder RT min 2V* 9782 No rt [employer] Other XR shoulder RT min 2V* : 1995 Acct:[id number] [employer] Other XR shoulder RT min 2V* Age/Sex: 27 / F A DM Date: 03/23/22 [facility] Other XR shoulder RT min 2V* Loc: [facility] Room: T ype: REG CLI [employer] Other XR shoulder RT min 2V* Attending Dr: Daxa Ford APRN, PUBLIC RELATIONS PLAYER-C [employer] Other XR shoulder RT min 2V* Copies to: Yaya Ford APRN, WORKER'S COMPENSATION CLAIMS EXAMINER [employer] Other XR shoulder RT min 2V* Ordering Provider : Amanda Ford APRN, JARROD [employer] Other XR shoulder RT min 2V* Date of Service: 03/23/22 [facility] Other XR shoulder RT min 2V* XR/XR shoulder RT min 2V*: Other chronic pain;Pain in right shoulder [employer] Other XR shoulder RT min 2V* RIGHT SHOULDER - - 3 views [facility] Other XR shoulder RT min 2V* CLINICAL HISTORY: Pain lateral to right shoulder for 6 months. [facility] Other XR shoulder RT min 2V* COMPARISON: None [facility] Other XR shoulder RT min 2V* FINDINGS: No [employer] Other XR shoulder RT min 2V* Minimal degenerat misti changes of the right AC joint. Glenohumeral joint is grossly unremarkable. No [employer] Other XR shoulder RT min 2V* acute bony process. [facility] Other XR shoulder RT min 2V* 0 XR/XR shoulder RT min 2V* [facility] Other XR shoulder RT min 2V* IMPRESSION: N [employer] Other XR shoulder RT min 2V* MINIMAL DEGENERAT MISTI CHANGES. NO ACUTE BONY PROCESS. [facility] Other XR shoulder RT min 2V* Impression dictat ed by: Sravan Dickinson Jr., D.O.03/23/2022 4:06 PM [facility] Other XR shoulder RT min 2V* Dictation Locatio n: RADIO-PC-12 [facility] Other XR shoulder RT min 2V* Transcribed By: Diaz OWENS 03/23/22 1606 [employer] Other XR shoulder RT min 2V* Dictated By: Jasiel Dickinson Jr, DO 03/23/22 1605 [employer] Other XR shoulder RT min 2V* Signed By: No rt [employer] Other XR shoulder RT min 2V* 03/23/22 1606 [employer] Other Coding Summary.on 09-03-2021 Coding Summary. [id number] Gh0 bWw+PGhlYWQ+OG9CSUOrV86 yuEQhjT9MA5fFWG9KLVYOPK SRJD5LZA2nfZH5PCuhK2Ypy iAv BowpnKFxSW97GFr0WMY8bPn uPVhlaW3dmLZyM1j8MeFyGD 89fX88ZDzoHDTxJnW5TsVhp jsgbWFy M3tyIoInbZRxDjg+PHRhYmx lIHdpZHRoPScxMDAlJyBzdH ffGQ7rLs5zKRGuLJVyfMdye HNlOiBj d7trRCPnNZsjAM9tsGuaY9J ttGE3EFCca6y4Hc43yVT+PH BaJGH1kHarVQmio565KaYif 9zuYWF9 vEYrTCduTLK2M24zc8U4VMQ mJMMyVBY9kSU4lI0quAbuvv feJ5LtoLTgGyC1UPF5xWPjh I5qeWti zcexhJ3iGlv+Y80HMD3UTZR OFZ5EWwc3K4XtWfaloHX+PC 21ITQeJG98qLIuqOYba8zyg Jb0YbEd SVUvOPK0eKmnZVrmi7TaACX jQ31tiIIrs8I3FWXaiMdzoU XjSsRqhTR0cT7hQCaoxmpaw 2hvdzsn Fcizt1xrxn01mA08X41cQMc qBYNeTZT7PKPjRQQpkSqycr 5ogS7sHa0+AXauq6lxe3qjy Wk0EjWh WBUbgbUpeKduCLS6w9GoWb7 8O0NbcQqvy4IvIuj8tw42rL Hjh2Z1zNA9HUxbYEVsuJ3uV WxlZnQ6 GQUlBmHnwH47gVOfKRxdYm2 laJbpsKbkIU1bIQDeigvxOM ZwsR8vVJFhpJVkkJxuWW0fS TBpbjtm s106HfOjODI8LNIzxIUcY8T xpK8eUoMjSSMoQVCgT9OkvB MfLEeaN144MOsaQrK7DGZay rZxM7Rv MEErhIagUxJ1p8V6Jz6Cx4V fzzghNCH1TSfmVFN8TtJ4Rt CqKuU7L3FiOey5HLRmiQdgB X9eW0Mx WGVxwfyerwxhgUJ1ATJzMAU dpW02tEQhGJnxAo8cf1T5t7 90WWHxKJIhmT72De5vzLxeJ TBwdCBU oF2nseemm2covpnqYmZcZEX hMRg0HCo6TWSmzRdoJuSzOI W7CnQ8JNQ9pMGqpB9upUnlv zmkkU8u Oyc+V70juM0rXVE1KNH0rve pGXGgkvWnEF67TK18F8SaLv wvdGFibGU+PGRpdiBzdHlsZ I3iKsKq z5ixl4HwSFchT7IqIMQcCQp qJas8ILGeZUF5oND1rY3hIV GfYEows1S8wUY5G4YctmTvg c0ja2xs GSZvBBqsF13rhSTlk8R0IMX ueGQ9SJGnlTdzDeUhlU44Eu c+GIRpjAmmj1LcLsgjw8dwv 6voaRo0 RkXpFXFqrtCnpYbwKMG9q9I fOa87Z37gTIuiZGGdJZZaRY PyGKWmoPaibq9mrL8vBo5+P GNvbCB3 hKO0jP4uRBKtRtS1UEfyB67 2MgGxlPTsYbjzt0ppk8nvcZ h5GvWqRQOpaqTxrKcvPDW5u 3MfOs51 U70oQIdbZAHaLYGiEPYkDDM dyVslbj5qiZ1pAx1+PC9jb2 elva29dU18rQA+QSBiMZW0e WxlPSdw AMAggN7xVZsgSsI4MMNySyH tyW52oBDnWXpcXh0gjSespI mbJC1hKHFkotlpt709ViPfh 2xkIDEw sUZySMzjAEV5K59oq4N6MSX jEBTmONR7dSG4dJ6awNrjnl ogbGVmdDsgdmVydGljYWwtY DduP545 IHRvcDsnPlBhdGllbnQgTmF nEXv0F1HpSfp0ANZtqAqiMQ 6edYLrURzkXi3hxIqalSnqC P4rNQJj lixfz326XrQln9jyRXKpiPN sBIrzWFQ2L25ez2L0DOIiVK PzFZH4nTH1yG9tnPjynplrc GVmdDsg pnEkpEsgIGifAIsoT997ZWX otYtpXdHaswYuPRBkpRW8RN 59LT28wGPmo3C0bNP6W8TsI GRpbmct bxrvgEF5HBOqEAHvbV20Um2 ohSicDe3oZOAtWMN9HEPtlQ SrU6FtyY7aTaAxNWAqCHArR 3RleHQt BXhrN070THdoUbB5ZASmfvV rZ7MbSEXnqAutHfR2a1P6Jf 2OK3K9WZ32FW85wFKbe5E9h YZ5H5Tb TKYcmrgonhukjZV0FSZdIUE wyE56Hu3jxRnqOw3xWXQoIT R4ZADhzUMhT0EvlN6mAnPwR DAwMDAw B1WqjCNzCOgaN935ZZnoRuH 5RWXqaqXaF8UmZDJtoSrmAc O2z8X6Ji7TMPz3YB31AT49t RFwg5Z6 cLJ1U3NmPFEturhrvkmmpXL 5WJGzXBRjfC97Ci4yrDbrYc 6qIYExVBV0ZZJjzHOqG2Kqf E0bDrHi FWFtVBOcE0EalTEiKWloN45 9SGkgHmU2LSXcpcBwS7PqPM UnfDelHeN6d9N5Jf4IHGSeT E31YIC7 uVS6BD23UX09V2HnVuujqZW ibGU+PHRhYmxlIHdpZHRoPS yjFJLuNjUnkLbjDW7gFc8fW GVyLWNv qAkczXDjNmZke5nfSGDyVSy uGL4eeCwcX3PioFW9DYNpe4 g3Tb51N47sJ8GpfGX+PGNvb NT5pHX1 sT1rPrYgBpA4BNnmW178OzA alJOoHfolz0prr1pwwCs4Ta J2GNNtduVdtDccXGC1b8VrT p42P58g IHdpZHRoPSIxNSUiIHZhbGl cmf8tyA4yLt0+CBQjyPW1cU K6tU1fDuAgRmO1DLjuP100J nRvcCIv Ggntz0zzb9qokBi1PcQqRTD mruIzlCijWJG6p4ByAu43R0 RrnUzyk9WhQog6va50zPKzt 8C4rJW4 L2YsGAFmgmvfkESxjHshKQ6 eBEZjiybuGJLimT2gCWMhG6 t2DbCbNlE0LEffV7DvktU2Q DEwcHQg LFlkJMZ0B81zp1M2KWYzRHZ lSPC7gFZ6yH0rqQhkiwlyqJ VmdDsgdmVydGljYWwtYWxpZ 246IHRv aXiyXVLfwJ8mIIQwyBPtvAw sNP9rBJYciwdpYa0QM4QXGi wgSEVBVEhFUjwvdGQ+PHRkI VG8yNux PRakNMSbvB6jPJSsD6r9HfE yXjK3SQtkV2GxDMHhkmmqHf 33mB1jKwDdCiK2CGynH2Eyc fU9UIYd eDNpXFvyMWZ2O30pu1S7ZJX vTCEoRPK1bMI4yB5joTdqmf ogbGVmdDsgdmVydGljYWwtY YqkK577 DJIkwTucNuOmQoY6RdJ3NFO 2Z4YjNit8VHMnzZamOE7hhZ PrXBxmLq9ioMxtuDzcFU1xB TBpbjtw DCNddX5oZFVmpIEexDebJF1 eQWIyclljr521XpHeUEG3GQ ZceISsR8HtcW8yBqKxQPUeG SSvU0Uv bYTtQZqzZ689FSzcPnF6NJY eygDcG4RcNOFtrYucWsH9z9 D5So5yAzVJYSFqumtamMK+P HRkIHN0 pPedOZhpJKCobG3yOGMuK2h 1XrZxGlO3TWdsB7XvCRGhbj vzPs58pT7hJoHgHbQ8RNbdB 5CjvnH8 YJAncBFiRCumGIH3I84ce3O 1LECrNJNyXDR7jAN8wR7wyY lnbjogbGVmdDsgdmVydGljY WwtYWxp Q954LSXcrAbaMyIrqNGfSVm vdGQ+DBAnGGI5yNprHLxbJW ZqvK3aRUPsG9s2FvRbAzG0D AmvF0Dk UWCefnhcYk74nY6uCuWnEkY 1DFknL3MsjxR8CVBvvNRrXY ygLHX6U33cs2M0ZMEfPOGoF KB8nZM0 oB7btAjwzpxeiXScaRjyyjT rcMllOUijPUioI237POBhaZ seYi54bPLexErtttM7K4VmV jwvdHI+ US64NTXoLE93bSLwbENbt7n mqPr7PrKhSUMuFWP2jEvyBE lqk8BxYMKtM51pjKIff9D3Y GNvbGxh jJUjDdYceWC8jR1zLUxwokq kp0ddhrhlLjuik1zpdo97bT 98U72lPSxqOYHjQSYwEYHyX HZhbGln ys9vzP2uLk0+OCXhoHN3ePI 0qR4eCgRlLrY2KDaoH483Qv DrtJYpVxjnb6klq2iiyYn0B jIwJSIg tsWimZbgMYH9y8VqHu59M85 sIHdpZHRoPSIyMCUiIHZhbG giga2ovW3iZo7+CX3pr9muu h78iT03 dHI+ZEEtVRK0sYbiZKjaJYJ fdL4lSUstQqF6IQGaVaZeaX 31nIRvMCqgTq8fbGwflVadM Q2vLVGe uiooy570GvOaa9haMZYkaEO nVXalOEF2A14kg5P6HAZlVP VpDUE6qCS1rG7udZnlrfuhq GVmdDsg tuMubKymQZsuGLtmH137VZT deXadQiXeyUVyK3gtgmQIKC 1lOjwvdGQ+FTUhGYO1mXqgH SdwYWRk tQ9eTGLqS5y5MsFjGtO1ANl kH9MflwV0PHPrfXYdCVHpzA MIyO4cjsajb2lnzqttVhVhR DAwMDt0 BKf4NWJmaOoaRhGcWLG8PoA 2JVD6rQJevZ4fxMphglsjdM 9wOyc+RklOOjwvdGQ+PHRkI EQ7jGin SFcaMCObzO9tYJZqO3h1SrE mKnR5FAkpR1ZjahI5ZKQpzM HtFEKpeXWTkM4jneewe3drt jogIzAw KYBtNMy1QPy9PWKrgBtgQdE tUYV7EvM3SOH1dOQscK3lcM rvzluvbC2iHue+TVJOOjwvd GQ+PHRk ZYU2aYrzTUwpPYWocE5vRQT vF1b0RfXjDxB9QIdwE0Zgvb Q1SJJxdBOzDTLdhPLUgU7eo ouun4pg dhbxHbSgMUVrKWk3GMl9YDW keNjcFcCfSLJ7LkQ5EOC3tE NbfQ4sgEbahmfzoL9lPjy+U HF6ROR8 DE48EV64T0LcSaakbKLgvYX +PHRhYmxlIHdpZHRoPScxMD ZlMgQqhThsDG9xPs3hPTQfG WNvbGxh cHNl (more content not included)... Normal [facility] Office/Cl inic Noteon 09-02-2021 [...] to work. She has been wearing an [employer] Watch with ECG technology and notes that [...] Jack [employer] to record this visit. ANAMARIA program specialist and provider reviewed before signing. ANAMARIA: [...] History Bipolar: Sister. Depression: Mother and Grandparent. [facility] Comment on above: Result Comment: Elec tronically Signed By: Jay DAVEY, Samir Rivera\.br\Date and Time Signed: 09/02/21 09:25 EDT\.br\Electronically Co-Signed By: Rissa Arias\.br\Date and Time Co-Signed: 09/01/21 17:11 EDT Coding Summary.on 09-01-2021 Coding Summary. [id number] Gh0 bWw+PGhlYWQ+XZ2INXJmH94 xcFCrtJ5TM5bKPL6MKXPLFD IRBZ4UMH2lrYN1RGjsI5Bgz iAv QxfypYVqDK76GLk2OVB1uPx xCMkxlR2mpXBhX5p4HyRkOI 95wP06HOssKUZpYxG0DnCqd jsgbWFy G7biYjWwpDGjIzz+PHRhYmx lIHdpZHRoPScxMDAlJyBzdH beUF4bFp9oIERyYQHhcYqrt HNlOiBj d4ddEHViGAisWX2szRbqJ6P teGF2PODsz5r3Ac17kFW+PH FsYRF6zYazRBkwn816FyXem 8gtTME5 mBYuAAfwZFR2Z49fd4L2YSF yIVCmZHE5uGC0uL5avWcuea zlN8FerZLbVnV7VEP8lYDzf J5naYdi feaeuI1eTwi+R90NBZ6BBIW OZM1NEjx5A0PyFhccmAJ+PC 55HBNcGD74jRFcrQUjz7ftn Nv8UdIw XXAkZYK4cRaiCTmpf6WcDGE iX72wrDStc9R1IAUyaDjymX YnMaDtqFD0fS8jDPxthduox 2hvdzsn Rwecv2geqe11gO14B57tFOx kUVXlKRZ5VVVxAQGbvLznzr 1lrP8nTr6+CVmny7tof0mye Ps0QnYg OHCkpsLbuFeiWZV9a1LsJp1 7B6PfcImly7ZrPis1lx63zL Eqg0C6pJZ0ETubKUAlxT3tQ WxlZnQ6 RHNiKlFruJ01zXWhXCefMe2 fgLbbtMxrIH1lQKNanwxzAW SxhG0tKALvhDLgpBciDV0cT TBpbjtm r078HkEaQTB3UUFcsAXlL8K ncG1uRrFdFORhHGEcU9YgeS VhLRjiM848SUsrCrT4IWKyc bSyD0Rk QHQbvNhgUhU8q6T1Es8Fj6M grrgaQOW9POouFHR8SgC0Mi JbXlZ2F7JgXgo1IPKhwBzkO U5aF0Zz KTEedvmrvsliaUT4LQXlJDI uvP23cAZkZKoqVa6kq6C0x8 10CJHfPUBlmB65Qy6tuYqgL TBwdCBU kD9mzghgn4wvjazkCiEyFKC kACq1YAo5CXEebAvsVlJsQJ D1YdD2BYJ1iGSryJ1dyPxsh xlsuB7j Oyc+V99psY1rMZS5ZVA3hoe aJSKcktVeFM65CF58K6LmYs wvdGFibGU+PGRpdiBzdHlsZ N0uUfTk e6zkq2TiMUjjO1RdWBWhZIz uLjf6DTGqTMO8mFT0aT2wLF ZuOZyki4I1eVC3T4GbunPpb d6uk3vb UMIqOJkfT82slKHiq8M2GML nnRQ6MJHmtTdoSsDbrF15Hk c+AJGlrNxuh2CdAappk6pgd 9hteWc8 PsYpWULbfbKicLqqVTT1x5B pBl44I30eHVbsEOMiYXBlCL DzNHWarVslvk9luD2oVf7+P GNvbCB3 gSW0iL5fLUDvIgB6TBquL82 2QfSftCWiLbpzs7gmk2msfK t1PkVaIBKqddRudYgwCMY9c 0WpDv34 K43wNOvzNCVkZENgXKOqIMY oeVgczn2kkL8wDk1+PC9jb2 gdum71fB08eJE+PBOgCXI5b WxlPSdw ILMezW2nHKykQqE7FYGrLlP ohO86wCPsVQluFt1brRlbwD efVT1bPHXhdfwdg665WiYmg 2xkIDEw uJYrMXanIZR1J84qi9O3AQW lCEEiARH9vMU3iD2djJcvya ogbGVmdDsgdmVydGljYWwtY FzlW164 IHRvcDsnPlBhdGllbnQgTmF fWFo8X2EbDsz0DUAbcGvgKZ 0ipIQsQGwiCq3rlLwzsQvtN X2kCGLh sbnfo259LuFca5nyQDZizVY rMSyxBTF9X04ks3K6SYHaSG JhBNJ4qGL4jZ3weTshgkykp GVmdDsg rxGfwOkrQVyjGQueC926KUV ieQvwAaYmauEkLIGrfCT9MI 38BA82pTKyx1M2xXP9U4SoK GRpbmct ijzmvFS1XEJsONTxrQ80Xg3 acBxfBq5yLBCjCQY9VDCdaE OyN3ParI8gJzWcQGOsORViP 3RleHQt UDdmS995KEsrZiL2ZDAofiX dJ5TvPZFhiIveJzL9l0C5Ra 2OD9G9WU69KS73qXPkr6J2e XF9U8Mu GVHbrysrjrayxOM1MVLzYJM jsH49Gs9csKijLq7oZWCmPQ Z0BVGsfWVsW6YawO1fPpLoT DAwMDAw R7YmvEWtRCrxU497WXvzDnG 9XQWlswRkK3ZnPIEytRqtYc G4n0J6Od8CSAv4ML64FN43e JObo4E2 hMS3Z9VsNWVxcfdntzwtlGL 6PMJdLETbvM45Ah0hcGgwKv 0cAFQlIGT3OBDdnAOvG8Tqq J5pVjPa CFWsBTHjU9PykHLaPEooM21 3XNcrLzO4QLDfvpLnV9PpAL QgsJhkAzD5w4M8Uy1ABGRoI W84IGM2 iEG4GG47YI76W0ZoGmekkAS ibGU+PHRhYmxlIHdpZHRoPS tcAMKxHmKfxIvdYC4dGc8bQ GVyLWNv pIfeqVEjWcIke1pjHGBjYWm yLB1bwYfqH1AfgXY4ZPLmk2 c3Ut51I76cM0WjbNZ+PGNvb SU1tXM5 wJ8bIpClFvT2QQxwP755KaT maMYeBghoa3agr0hqaKt8Zk L9VCWzduAppXckNFU3g0DwA k19U88l IHdpZHRoPSIxNSUiIHZhbGl wwl8gaL0bTr6+MWRwwJK6pY E4lM4hHzXnSeV8CGjmG485S nRvcCIv Xsaox7zzz2yofIl7ZvAfBWU nesYnuSljJYH1j7OtGy87Q5 PmoJskq6RsHec5pu79jAJzg 7P7rHX0 O8PfBEBbodqrtWZqyEtoML5 xDTQeyzysLIYdpR2rUTRbM9 g1CnPfEjB1LTzvI1YclvV3H DEwcHQg EEteGLE7Q01dr7O1PJRzRER eSER9lMQ5pD8bkXjyqhthaR VmdDsgdmVydGljYWwtYWxpZ 246IHRv uUgvWLPiuX0iHXWsmKVvsNr mBC1xZYFtfecnMf6LP7MMQc wgSEVBVEhFUjwvdGQ+PHRkI JF9jCjp MXgnALBnbO4dPNYaP2g7VdO yAzM8VHlwW4YzSOZtwttrOy 59bC1bLdAvYoF9IVfhF5Ccv eG5PFIr cTPfHEvqECX6W37de2W0UBG pBKEnQFE1zPT6nM3gvRqbkr ogbGVmdDsgdmVydGljYWwtY XcaB798 MRCclAotJcTpTfK2MjZ1RJY 4F5NoVrv1VNUbeNraOW3wvL BfTYjxWh8mfXnmnKhlSK9cS TBpbjtw OQDtaL5mOPThpXWcoWvqNB7 mJIIkhcpou304LgQqPAM2HX BpcTYhW9OwoT6eIgBpSVOxG GVsS9Jh kQNgHEjeT972FNthSuH6EWP trjWqT3YcVMEbhRuiWcN3t8 B1Dc4wBqRWKYBjigvhxAH+P HRkIHN0 xBqsCSfjYJRjiA2nRVFxN5h 6VqQyTcR8SNnxM7FxCBYigx xqZc18zC8iJaYlAyA2ALxmK 4RgvqX4 VIPusWJjRRlkHOX0C02wd0H 4GSAlEVJcVRK3wUJ3rK5ooU lnbjogbGVmdDsgdmVydGljY WwtYWxp A938IXLthVoaOzRwyJQeEQb vdGQ+PQVdLED5zUqdAHpuAI GszP0bLRJlE6n4PpUlLnA5S TwjA3Bx CVTlfgvyUz28cS6eWeJiEbI 9JBzfN0SqidP6XFWydTGgON seMXB0M80io7L6NURwVIZuS UX8vKX5 yW5ztXackwfmfYYkbIhnkbN hjGvyWLbdFLdgS870IFMayJ dtDg85pLKjmLrbsqV1A5LrT jwvdHI+ OA16VSCiWN45wLTokVIcs7b avLq9ZaErKOFjGEO1zWadTZ xar6OyTQPbP34foWLip2L7G GNvbGxh xIJsXoGhnDV2eE3aTYwoswi fh2ighnscDdrun3qclt52aR 51O96mDYvnZUOoEMMpDWDzH HZhbGln vw3jaV7vSy2+MKYlhCG1sMA 1yA7wPnJgLoT8RQpkB893Bg RynFOpLcckr1oxf3zfuJu3F jIwJSIg ucZyuUliSXY3r7OaHe05G31 sIHdpZHRoPSIyMCUiIHZhbG aadb7gbU8bOz9+YX4rx7ach c61hR13 dHI+RPKrKMS5rAgnQWjjKTM sgB6yBBdsJkK6YHZkSiInaF 59pBGkTBodUf0ftOvzkDpvL K8tQPGk lcjls816TnSnj7leGJDdlUI wHIciVNI4O05sc1X7GZRfTA AmKCC7uLV8pB3xyHncjsrwk GVmdDsg fyCxbIhxQGhvQZjiN798ZAQ piNmtRaZqvJSyL6bcgsYKJR 1lOjwvdGQ+YLBbVND7eKmcV SdwYWRk sH6uRONhN4k9BkWfUlO4FEe fR8YlnaY0WZByaLGvQIUhaQ JAaZ4bznsxu0acxhvuVzUvE DAwMDt0 NSc7WFFkkCadJeRzHME5QuJ 2JBY5zPYwfJ7yfUvfbnoiwZ 9wOyc+RklOOjwvdGQ+PHRkI MK3nLzf VAocLRSdtC5lYCJoO5o3AsL iMmQ2UTtpA3UsptT1XTZdhG NdBIDyeFEBzN9axvhpc6wqk jogIzAw XSYwOOd4RRa5LKEcsPoaOmW jUOQ6VeK3PBM7dSFkdJ8usI orilyrgG8nXah+TVJOOjwvd GQ+PHRk DJR7rTivEFkbYBUibK4hMHU lF0w9JfWnFuX0VZsgY8Drkh Y2DQPywCVxYLMcoNJCzV5lc buaa2nc qoxmFeXwIIVeEMn6HCs5IZM cxSnkLzWjDVS3DiM6EIJ8yO OxsH8owAzlnkjikY0cFgh+U AW0TBI5 JP66WT58Q9SkXjpdlOKjlVQ +PHRhYmxlIHdpZHRoPScxMD UpAxDoeAxhEA8fPx8fGUJzX WNvbGxh cHNl (more content not included)... Normal [facility] Consent for Treatmenton 08-16 Consent for Treatment [id number]#1.00C D:127 Normal [facility] Progress Note-Physicianon Progress Note-Physician [id number]#1.00 CD:127 [facility] Holter Monitoron 08-27-2021 Holter Monitor 48-HOUR [...] READ BY: Robin Salazar M.D. Dictated: 08/26/2021 [id number] Transcribed: 08/27/2021 cc:Samir Thompson M.D. [facility] Comment on above: Result Comment: Elec tronically Signed By: Martin DAVEY, Robin Galan\.br\Date and Time Signed: 08/27/21 10:21 EDT Holter Monitor [id number] [id number]#1.00C D:127 [facility] Consent for Treatmenton 08-16 Consent for Treatment [id number]#1.00C D:127 Normal [facility] Coding Summary.on 08-11-2021 Coding Summary. CD:[id number] Gh0 bWw+PGhlYWQ+UM8TATOjX60 fhDWspE8FA1aAVW5OFITZRF XHIG5WKB6acJW1SPuxG3Myz iAv BeyyjAXaBP83NRs5NHE5zLp yWDyjqP3siTRpY2q5YzAxKU 19jQ10GDukKEEwKlA0HiTow jsgbWFy I2vtQfRyvSGgQtc+PHRhYmx lIHdpZHRoPScxMDAlJyBzdH woBU4tWa6eZBHhPYGlkYqeq HNlOiBj t3glURLcUJomWR8uaOwbV9E rnVC7OCWxa3o2Fo23jEA+PH FaAWQ5hXitXFusu572XwZek 9krPYM6 iMMjNLfhTFJ3T87mv5W7GHK nHVTwIZC9oWP6wA8ksIlsvo plS4KacNSrKfZ5BYE6wJHkj M8whEls cqauqP0wDsb+B54PSH1RLFB TKE3AUmu5D9HaKlgkkGM+PC 19SCOrZD50qJZrlESoh3fnm Hl5OwSy PMItXHN9sYwlMGyzd3LbODC sD63nkEFtz2B0ZDQstWwxrT AoBxXhxCS6uJ0gYAojvmclk 2hvdzsn Yiljw8twpn69iP25B96gDUh nUFJfRWA0RAGbCIMugPppcm 3mnP6aBn1+BBrgt0oxw3gun Qp6ZjOa SRLhfnBzpGidNMS8e1QtCj5 0L4VhjRnxb6DoVhl9jm89xX Nzp7K5bXS9KDyfAYClnN3nC WxlZnQ6 ESXrGqLbqS22rSLpZSuzNl6 myIfxlHwwQW0wMMVydsnwSI OcsH8dWQUoxAQwbVdlCQ7qY TBpbjtm y346JfSpRJD2UIAvlIGpT6F ooP6qLeJsEUEjJMKrP0OkhP SeWRiaX610BYnzDxB2HHRph nUgQ8Yf KOQzvMhwSiJ0x6Q3Yr6Dq9L wzfbsQJB2DJabAJF2CrL1Yp NaJxA8P4PmNxo1LCWizAlpX B7hT9Bo RKJqjobuntlqoFQ0RCGfJTJ hwN39lSAnAMatHg0uq5V7t2 49XQYpOBSqdJ30Ox9heXloZ TBwdCBU tH6kfuzpt2pamhucItWqDZL sWWx8DMn0KILkuDxhQkNjCF J7YiB4KXZ6pMZosH8ozEabo hlxhB4g Oyc+B77ddC4cTGV1BCM0tdy jVEOzyzTzRB46AA05O4XqDr wvdGFibGU+PGRpdiBzdHlsZ R6cVaHo k5dev7AgWDecQ6PvCWGmTKq bLgz0PEApQQV3gNS3hN9rKV XaGSiyl3M7hFD3T9JzbjUbn v6fx1gm SBXhDYgwW60hiVAiq8W9GZW qcQS3WSWgcCtfWxRwfQ34Ih c+TLJygMamx1UlUvykn5nmm 4kbbDe9 ZgEoZGLdquSmjKshWLL4f9Q sQz42I47rUJudHUFwBDOxQR QqRZRzyCrkil8vhJ4aWf2+P GNvbCB3 nEB7fF9jFTJnWoD5UXwmK33 7IcIjwJZtZmnvy6dcu6sxcA j6GnSaYSMkpuFxaBzjIGV7v 6NpPd24 L20hSCxzKUMsDOOoZJGyHKN dwZnspb5hpI2iJg7+PC9jb2 zbej63pS06iCC+LHQmAHN7q WxlPSdw TULwnY2oRSviYnH4MFVmJuW kgV83iCVsNSovDb2ytUteqU hkNM7rXCAequyod277CtKsz 2xkIDEw cEBcIGjcQVT9N37vq9V5RSG vZBVaKUR5wLO8lP8ctNuggv ogbGVmdDsgdmVydGljYWwtY PhmV555 IHRvcDsnPlBhdGllbnQgTmF cPNi0J1SdGim5HRRbuDtjMN 6jaEBzUXbsYa5hfFutzRzaM C5yFVYr mvitl403PmQbk3etCCZjfRW eBKzqWCN0D78jm6A2RQRvYG SxJHG0zSU8qT1wyInawvefp GVmdDsg bmDfmTbtXVsnJWwaM027DUQ mtPqyFgOcrbJuXFFrtNB5BQ 30VH08uKKmc0M0dTQ8D3OyW GRpbmct epgfyVT4XULbFDXdnE63Rj4 ekNhlCc5yFTKaHUR1ICZyyT JhI7YjyT7bSdYpTDAiPTFeX 3RleHQt TNlmQ905LLngFaN4LRDrtvM pM5LfBVWdyHnxItL5h1K0Zr 1XI4L6BE00FB63aDEey9X6p NB5D7Jy SGLrlmvnhcnsrMA2LIGeYQM icD29Lc0mmUsiCm9fCCRwUT J2QAHnjSYjZ3DdnO7wJkCdE DAwMDAw R2CbzOQtJXdzB495MSfbSpL 9BTEsrsFvF0LwRXUctCqyFk Z3n9K4Vt6BWYd8KP81GH77l CZje6Z2 rOM2P6PrNKMmrixjctfcoMC 9CFVnFYKoaB95Zx9bwHjvSx 3vXLRcHCT5UBEplKIzW2Cdc A9bIgYe IBYrDLEcG3RygBGgZLzoD87 5YUruJlC1IZKlftTwO0YgXX XjcRumDnP0f6X4Vh2CJPGnQ L19RMX2 mIZ0LQ69KS84Z1LgNtxbrCD ibGU+PHRhYmxlIHdpZHRoPS fbQSCuOqFcsRadQO3lMw5rE GVyLWNv jLyzwPXsIaZnj9izHYNsJQa uUL9utKnuG4LjnLN9WEMvv0 j1Qb50E73tL3LcaEZ+PGNvb TD3zMD3 wH0vFbGfVwV4WRalD114GbN htNReMayoq3zfs7rrvAu5Si H6WAOavtJxcNnqQIC2d4TxL h42B02f IHdpZHRoPSIxNSUiIHZhbGl rgf3nrB0aRz0+YSLibYD8wW S6uU6gQeMcAaY2LVwiG445H nRvcCIv Bpgdr4lgd3sddFj1SoClAUR dqvKbvMruEAZ8g7CtRy87Y2 BepJlnz2YcEio9kg25rGPcd 4Q0nHJ9 Z3JkCFGxccxdbBNqsXqoWG0 qKWEcjnmgQMTcsE7eJMFkD7 c5VcEtEwR1MBhsU0ZgjhU6M DEwcHQg QMisJHV5B72uv8U1NQKkSTA iIUN9jWX5qB2zuAvyjmgsiV VmdDsgdmVydGljYWwtYWxpZ 246IHRv tQyfJVSnvJ7pGKNrmCAvzGj hGJ1mFBQtlkilGf4UB9ZTRk wgSEVBVEhFUjwvdGQ+PHRkI RG4lPjr MVtoNXXliA7iIGVwT3q7OgO oUbX1HDmaU1McONUvlkjbNg 20vO4wXbOhNqR9RJorD5Pro lU5GEYw hBRzDUtiWCQ6S14aj7O4OBB xLKAkQCD8hXL3qQ9zdMzgyn ogbGVmdDsgdmVydGljYWwtY DszC228 KAFabAwcBgLnBxM9QxQ9RIU 8O6ZiZwg9BOKtmVzoSI5xyQ NfYVcaRh3twUzzeEgoIF3sL TBpbjtw SDPuvR0mPQZnkLMhjVojWD7 tZLUihhhoe451KxKkTDI6HO HkjWOyM5WztE5uNdLvIYTgQ WQsY3Zb zIPsCGlvD692DGxeDxD2LKY iypYwG5VkJFMqkHvyHbE2c5 K6Cr6jGpCMAZOvseqjsST+P HRkIHN0 zHqsGUozFSWhiT7aZOUkM0x 4UhDnAdK3QZdyS1ZmIBWehx tpAf66pG3jPzNsWqY8YKrbB 8VujtY0 NHDdwVZlXClbFSA4I67zx0Y 6XYZkOCMbFQR0dFU0mG4xrW lnbjogbGVmdDsgdmVydGljY WwtYWxp U838BJPvqEheRmApnKZxKUm vdGQ+JCKpJWQ3vDguECutNM McaJ2fOKBzB0k4OaIiCpL4T JurZ0Op CYDimrhzIs40hA6sCcEhNkC 5GAdvQ6KvmnI5HYQbxUJaTQ hhCTG2H99hw8F1JFTjFLPqA LM2rMQ2 tE4amBffwpocvVZdgWzltkM xvGapOCsbZDezW279CPFobK axUg81uNWbsTrppgJ4K7BbU jwvdHI+ NW13JOOoHD60fNKopXLvc4l umMd4YbGqXSNwZVH6qKovVC dqa4KoNIIeO10zoRLbq2K1R GNvbGxh lZYgIeGxoPO5gJ6eLPakifv hq3fecejgLnnoa0dwcd16gP 92S01cJUoqEGIfBDGmXTGaW HZhbGln wd0kaM7aMb4+ONUehLA7kMZ 0iS2pKjReReR7SDatC467Um IilVCyMphnr1tfp3wqcKg1J jIwJSIg ydRtlMrwHZC3p9AoGr90C48 sIHdpZHRoPSIyMCUiIHZhbG lqgb7hdW9kPl3+MP6ga6vaa g76gF65 dHI+YRItHBC1qFahPAffBSZ inN8oNLgjWmM0FBXkAqQjoH 89aVJgBUgfJn3qyXqqxOfpR L2nAIUh ponkt839IlOnq9yxSSIcxHG nACxbQCP8I97bx3I9EZOpAE OqYKG4dVG8gQ6sbNikialmp GVmdDsg noGsqLrlVTfqVQgkR051YLY mnLurDnWhgFSmK8nebfQSHZ 1lOjwvdGQ+IXSoXYB7oXdkS SdwYWRk mE1mDMCfV5m8AjCqGnV2JRz gY1VmexS2DUUrxCSqOVCxjL PKwX7hrrxye2nhcbuiIuUiC DAwMDt0 PPi4QJLmxMtfGpYrKZT8ZtD 1LSL2oVRwxJ3rcHnanooowK 9wOyc+RklOOjwvdGQ+PHRkI LO8vQub SXtaSPNlsS3dZIYnL7c2EoT zBpY0YKjcL4KlbjJ0FOZlaI WaMLXpfGFDgM0sayqmm3zcy jogIzAw WYWaKTs2NYq8OEAedQkzSwL mUFY5WcW5XMO3fHWlqK3nyV ixftgatI0hJxb+TVJOOjwvd GQ+PHRk ISX0rZiiXUziFEQrcL5dTZY fS4p2MyDwZsY2LAjhG4Ruez G8BKElaOFoSYCbePPGyD7cg rxdi6jn vihpEgQySHWjUIn4MKx1SJR jmRrkQbExWZM5MbX7GTX9cE CqcC1gcLvsjijpnB1dFqx+U ZF9QUP3 EB87VR61D8CkDitcvQSgjZQ +PHRhYmxlIHdpZHRoPScxMD KzAlNzcJvrIT8hPa8fDYMnC WNvbGxh cHNl (more content not included)... Normal [facility] Stress EKG Tracingson 2021 Stress EKG Tracings [id number] 052 [id number]#1.00 CD:127 Normal [facility] Consent for Treatmenton 07-18 Consent for Treatment [id number]#[id number] D:127 Normal [facility] Coding Summary.on 08-03-2021 Coding Summary. CD:[id number] Gh0 bWw+PGhlYWQ+EP9KQXFfK87 jwXKsjZ0BF0vFKT1ISVSEIF QDLX0ABV0stIF2JQvrI9Hdl iAv MmrmcUWxKY32UBl1VYT4tFd vIByieP4xrXYpS5z3SvHjQO 95qX02GMcuCVAiPsF1XbEuj jsgbWFy R9ocZoMmfMQrPow+PHRhYmx lIHdpZHRoPScxMDAlJyBzdH xfTX4jQa1tGLOdHGLfvCmaj HNlOiBj c6tdMKFpUWuxBA0vaMwuQ6W amGS8UZVnx1p3Ha51aXS+PH XsPHI5hLdaLFhkz001AuVfn 3dkFPW3 gYApXGjvWPY9F67me2Y9QWV jOJUzKXA9eVB4vH0vdPqnpp neJ9DszBUbEuR2AFO7rJPed F1wcFcf jafokS0xRoq+R47ZAC0PAHE IKT1FFir8S0IkHwavoCZ+PC 20NOKpYD03nKYfeRZoh3mti Bn7RkWs MNJwOVC9eYexOZqym2KmDKP eU47vnNVet5M5ZPJvvSbezT RdTxYggYF2tP3tZHzysrmnd 2hvdzsn Wspoq1lqwi66tF42Z00pUQf dBWPrBFA2ZVHcNINmlBlefu 1xnG9fMr7+FEdsr4vle0xnl Ry8KpJj NWXzwfSyeDgwAAN5x5JuEx0 6I8JxzTjni8ZrMcm3mi39vE Cmq6Y2qTA8REhvGMYvoH4oM WxlZnQ6 QHLyKkTftQ45fSDuQFnkUl3 qmEwwkVzzYY1mJYIrseyjCK CytW9uXYNzkPWhxVidJE4aM TBpbjtm u001DrQvZMX2TRKljNHkH4S kuV4qUaFwTGEtNXUjL8AzyD BfIYhlQ288DIocOgM9PCWyi mBhT8Uc ZSJqeYqkYhQ5r4T5Ls7Au4V hrdjxPOG8KQlmFPI5JrA8Ke RmNkU2C7KyOwb9NIHpfKchL J0uJ1Ac MVXlotxndzpdqRA4LAAfPKI maM30rMZsODsoSb6jo8H3t1 38RGGcVIAeuS49Jq1bbYdxT TBwdCBU qX7whufxz8wwxabmScMcFED eFLz2XBn7RVCryDavCeMqGD R6YsE4DXP3vOYgsK1rtAdpq ckbcR1z Oyc+A17niH5wYSG0TDJ6whd cLXTopaEpWF29HY39J0PsWb wvdGFibGU+PGRpdiBzdHlsZ F9nXoXe r1bjm6YrBIepA9VuXWVfPRj xLff0RVVyYRS1aJV9hC7dCO NnZUhao7P6oEB3V7BymeRsq o6kt5ft UTJtWIgdZ68ngNSyl7U2FYC qpWK6MDGjgKwvByWtkM91Uf c+DKLypZfek6PeReykp2eta 6nsdJr9 KlDuLBBiduKkzHrcKFC7e6L nEw61L37vDFrlKYFhLNXtSS TiBIHcrYhfqv3iyH9mPd8+P GNvbCB3 oGY4aM2jUHMqQeT8CDcjA27 2JmLpwIPzTzsbr5muk7qmfT e4MiUbZTXvopAumXjjYJG3t 6NaIb50 V88cJNwkSHLrVKNoCLBpLCK vkYvgsu9vzD9fCh4+PC9jb2 zvsx02hP06qEZ+EVEvTLE3k WxlPSdw IYAwtU5hCLosLwR9AAQcWdP xkD91lQWkWRbgEs9mzDhwzB prMH2vHBXrbxvlj071KbBdd 2xkIDEw gFKyUAclWFM8J68an9Z4LAN kSLXnBZZ1xDT0xQ9gcHksyj ogbGVmdDsgdmVydGljYWwtY BjdQ633 IHRvcDsnPlBhdGllbnQgTmF zFTb0E7GeHbr7FXIykWemCV 8hwEEwWWlxYe8yhVzwnTozR S8vSSCo cnxqg907NiZha2igZXXzjQE jLOozLPF0Q17tv4K5SAEjNA UfVWC9oZH0fG0tcPfcxmvdb GVmdDsg nmUcwKneNRzgCDomL766AHG pcFucAuAxtvAmIGZssDN9SR 70KK77uRIds1Z8nVC7O6JbZ GRpbmct omassVN8THDoRANemY87Wa4 pnMltOp7cKDXpPPH2WZGqhM QqM6NruM0rJqDvXCDtJKGlN 3RleHQt OSiyR016DWumSwB6FYYtngS kH2LbYKIibQxxBbS7x7R7Vz 4BI0Q9HB58CV08tGCpv7Q8d FC9A8Nt YJWrttybrkjsiLZ8ADEeTPR xoM39Ca1lfPurQs5nNEHcNF I8OBXwwRKoA3WgfP1uYhDwD DAwMDAw D0FyhRMbCYjuR830QUmkOeN 2OKUxolIeJ3ZcPWJujQnvEo E6l9K2Yw0ZMSp1SO90BF32l AOue8K9 jKS8L5HwJAYnivxcygtetCS 5ZMDfVLBcwA41Cp0jxHvpMl 7jUZTjCRT5OGMwqASvG5Erf Z9vXiNx IVNpXGZnJ6ThkTRjBPylW50 6VOinKyU5WXBlerRbW4PkXN FsuDxcSwL3o3D5Dv8CJLStU F91GKB4 vZL7HF64OS02Q2AjBkakxNA ibGU+PHRhYmxlIHdpZHRoPS vxOWWjNvJarZuaDZ8eZl9zF GVyLWNv rEtzfQGfZaPds2pmWMRsUVm iTV9knYakZ6EacUD1FVVia0 f7Hy44Z63wR8JqgRI+PGNvb NL8cGF5 lG3fRrOgLwH5JLbhW509ZiA txVHnFaoab1xsi4edyEf3Zf D5AMYxqbKibYiqRRQ0b4SoT b81Q87i IHdpZHRoPSIxNSUiIHZhbGl txj5znD9tLd8+CRQisEO5nO F8lO2sYqCaCyC9BAmhN625J nRvcCIv Thagn3awl2ldcZb9FfGlZUV mkqTsbDtySSN9l0DzRy37I2 UgbWzzg5TqZrn0na15lSHtz 3X8bTG4 Y8WuPOVcxntgwMLtdSxeIP0 mVHDogfozNERtvC6vWWUeI4 l4AcNbNiV1ODhsA6BpssT5C DEwcHQg KQfbFMG0R23iw4D8FCThUHQ bGWI9kRD8tX4mkCojbjwjoN VmdDsgdmVydGljYWwtYWxpZ 246IHRv lWipFZPeyQ0eRKNsdXDwvIi sJT4iYBBsqldmFh6CS8YSQb wgSEVBVEhFUjwvdGQ+PHRkI KB6jJtm TUceQJVjsK2lIAAtD5a6TwN sWlA8CEfdY1GtSBZlffubNg 61aF2kHoThOlB6LCmqF0Vad hQ0KZUr tHZwTPatTFZ3W72qt9C2CDP kCQXbVAA1rFM6tC8iiDwuuc ogbGVmdDsgdmVydGljYWwtY RhoU640 VVIlzUhoHxIdMsM4RgQ1UBK 1C6DnIps2SIIlyQekSK3eiM AnCLbwVq8lhRtoqTmjYF4dC TBpbjtw JDCkmQ1vLEIdzSZhrCmqRV4 nBZXeqfsyk618TyYsSXD5YF UttTUqY6AhnB7qKeRxMIGwN HYdB2Xc zIUfFZsfH146RBelZrL3CFR qmdCbI7BkFZWviRshLpH2l6 S5Jd5mQvWWQXTqgnnjrKZ+P HRkIHN0 qXayXNooYPJrzO3kHZPqB0o 4IxLkXsR6RFraF9MuKLAgbs xpPs15rK6eNrKiZaD0QQmsE 7XqpuP7 BYSwnENsRYoqCOR2I83xi7A 2JBBkZOEsKIX7iFM0nI9uyO lnbjogbGVmdDsgdmVydGljY WwtYWxp H147PCUzjJbtNaJjnRReTRb vdGQ+BCKlFXJ1nMkqGMkeVO UduN4tLNBaG4j1IqKdDsO5S CscF3Dh PLVlvdgkAf71uU3iQwDtLwN 0BLsoT5PasfA3CTPloFUrUT idZQD4O71ed3Y3VEFtYIBuV AM0cTR5 aX9npPsmecvzkMQyjCscgxY lfSnkGPtdJNhuA487LMPvgM qyUi90pHYpmXdnbhQ8H1MlT jwvdHI+ JT77WVVwTE70hQMhiDApz5z vaYo1CiNqCGUsAER0jJbzGB llr6UhIEGkP63yjCCex0X3M GNvbGxh pLKrQsZbkMP8dC1hJMilpxb cr8binkcyKuwzq2dwea59dQ 90M97rDOznPBDaMHTwVDHuE HZhbGln lj1izH3fLh1+CETbrON1vEI 8tE9lTwGdNmC2AJqsQ068Vj VzjXGwOwzna1vcp4qmoSt9Y jIwJSIg ubOqdXfrDQS8z9FzYq59Y21 sIHdpZHRoPSIyMCUiIHZhbG lwct6piG5nYk5+OD8au0ofb o88eW81 dHI+NRIeMMT4xQyePXiaWBT vbO1bCBbtBjQ0NMDbFuFrcX 20gBNiWChaXj3beGubhQmdU Z8xVPTh ipbbp034DoVwm1ruQEIlqXL bEUedSBQ4G13vx1U2XLYeWR AmGSZ7zWD3lQ3wpNvrsrzdi GVmdDsg vxWviDywUNhgAVhrX462WKF vbVphLiVenWJpQ9ixoxNRKT 1lOjwvdGQ+EMVgLIA9qMjyQ SdwYWRk eW4tCUYdG5k4ZrBqCmS0NFk iL2TmlnS9JCPxuXLoIJGqkQ TMcP9xmqlev2fdeaoeVvKgX DAwMDt0 BYc4OCLmxBeiEoLaJTV3CdT 7CBU9aKKivR1axOkerakzjM 9wOyc+RklOOjwvdGQ+PHRkI DU2zRxx QNhrNOYtxI8dPIXwO9z4GlB pPtV6YBdyQ0XbmcF7YZHeoL OgHBZtgQLZfL0dogqjf2xbu jogIzAw HULvOVz6EIw0WLVboLevQzI qQTU6BrS8IXV2fEMcjE5czH khfkyicU6zGig+TVJOOjwvd GQ+PHRk OSC9dDovZWgaXUVtgJ8oYOU hE9r0AcWmIeK9YBwcI8Tqgn L6RSKedNHlNZPktZCXqP6vd mjoa2cm kicyDyZwWPOlHQo8LHq8OMS cmVdwQvBmZDB9PyF2WVV7kK ZggI6lzHzeqoxkwT9jWdw+U YZ2CVK6 QY19PR58H2ZpTumlqTCamEI +PHRhYmxlIHdpZHRoPScxMD XrNrRnsLsbDW6oWx1mYBQaD WNvbGxh cHNl (more content not included)... Normal [facility] Progress Note-Physicianon Progress Note-Physician [id number]#1.00 CD:127 Normal [facility] Heart and Vascular Office/Cl inic Noteon 07-27-2021 [...] rate increases with exercise. She presented to [facility] ER 2 weeks ago for suspected [...] after patient or guardian consented to allow [employer] to record this visit. ANAMARIA program specialist and provider reviewed before signing. ANAMARIA: [...] Use:. Never [employer] (more content not included)... [facility] Comment on above: Result Comment: Elec tronically Signed By: Jay DAVEY, Samir Rivera\.br\Date and Time Signed: 07/27/21 10:44 EDT\.br\Electronically Co-Signed By: Rissa Arias\.br\Date and Time Co-Signed: 07/24/21 16:24 EDT Consent for Treatmenton Consent for Treatment [id number]#1.00C D:127 [facility] Referrals Officeon Referrals Office [id number]#[id number] CD:127 [facility] BASIC METABOLIC PANELon 04-19 Anion gap [Moles/Vol] 8 mmol/L Low 9 - 17 mmol/L [place] Bun/Cre Ratio NOT REPORTED [place], [place] Calcium [Mass/Vol] 9.2 mg/dL 8.6 - 10. 4 mg/dL [place] Chloride [Moles/Vol] 105 mmol/L 98 - 10 7 mmol/L [place] CO2 [Moles/Vol] 26 mmol/L 20 - 31 mmol/L [place] Creatinine [Mass/Vol] 0.67 mg/dL 0.5 - 0.9 mg/dL [place] GFR >60 >60 mL/min [place], [place] GFR Non- >60 >60 mL/min [place] GFR/1.73 sq M predicted among non-blacks MDRD (S/P/Bld) [Vol rate/Area] NOT REPORTED [place] GFR/1.73 sq M predicted among non-blacks MDRD (S/P/Bld) [Vol rate/Area] [place] Comment on above: Average GFR for 20-2 9 years old: 116 mL/min/1.73sq m Chronic Kidney Disease: <60 mL/min/1.73sq m Kidney failure: <15 mL/min/1.73sq m eGFR calculated using average adult body mass. Additional eGFR calculator available at: http://www.[employer]oustice[employer]/multiple_crcl_2012.htm Glucose [Mass/Vol] 99 mg/dL 70 - 99 mg/dL [place] Interpretation and review of laboratory results Abnormal [place] Potassium [Moles/Vol] 4.5 mmol/L 3.7 - 5.3 mmol/L [place] Sodium [Moles/Vol] 139 mmol/L 135 - 144 mmol/L [place] Urea nitrogen [Mass/Vol] 5 mg/dL Low 6 - 20 mg/dL [place] Basic Metabolic Profon 05-08 (cont.) Normal [facility] Comment on above: Result Comment: Aver age GFR for 20-29 years old: 116 mL/min/1.73sq m Chronic Kidney Disease: <60 mL/min/1.73sq m Kidney failure: <15 mL/min/1.73sq m eGFR calculated using average adult body mass. Additional eGFR calculator available at: http://www.[employer]/multiple_crcl_2012.htm Performed By: #### C BC, PT, PTT, BMP #### [facility] [address] [place] [address] [employer] Operator: Casey Marques MD #### ANICOT #### [facility] [address] [place] [address] [employer] Operator: Adolph Diaz MD Anion gap [Moles/Vol] 8 mmol/L Low 9-17 [facility] Comment on above: Performed By: #### C BC, PT, PTT, BMP #### [employer] [address] [place] [address] [employer] Operator: Casey Marques MD #### ANICOT #### [facility] [address] [place] [address] [employer] Operator: Adolph Diaz MD Calcium [Mass/Vol] 9.2 mg/dL Normal 8.6-10.4 [facility] Comment on above: Performed By: #### C BC, PT, PTT, BMP #### [address] [id number] [employer] Operator: Casey Marques MD #### ANICOT #### [facility] [address] [place], [place] [id number] [employer] Operator: Adolph Diaz MD Chloride [Moles/Vol] 105 mmol/L Normal 98-107 [facility] Comment on above: Performed By: #### C BC, PT, PTT, BMP #### [address] [phone] [employer] Operator: Casey Marques MD #### ANICOT #### [facility] [address] [place] [address] [employer] Cutting Machine Operator: Adolph Diaz MD CO2 [Moles/Vol] 26 mmol/L Normal 20-31 [facility] Comment on above: Performed By: #### C BC, PT, PTT, BMP #### [address] [phone] [employer] Operator: Casey Marques MD #### ANICOT #### [facility] [address] [place] [address] [employer] Cutting Machine Operator: Adolph Diaz MD Creatinine [Mass/Vol] 0.67 mg/dL Normal 0.50-0.90 [facility] Comment on above: Performed By: #### C BC, PT, PTT, BMP #### [address] [address] [employer] Operator: Casey Marques MD #### ANICOT #### [facility] [address], [place] [id number] [employer]ting Machine Operator: Adolph Diaz MD GFR, Amer >60 Normal >60 [facility] [place] [facility] Comment on above: Performed By: #### C BC, PT, PTT, BMP #### [address] [address] [employer] Operator: Casey Marques MD #### ANICOT #### [facility] [address], [place] [id number] [employer] Machine Operator: Adolph Diaz MD GFR,non Amer >60 Normal >60 [facility] Comment on above: Performed By: #### C BC, PT, PTT, BMP #### [address] [phone] [employer] Operator: Casey Marques MD #### ANICOT #### [address] [address] [employer] Cutting Machine Operator: Adolph Diaz MD Glucose [Mass/Vol] 99 mg/dL Normal 70-99 [facility] Comment on above: Performed By: #### C BC, PT, PTT, BMP #### [address] [phone] [employer] Operator: Casey Marques MD #### ANICOT #### [facility] [address] [place] [address] [phone] [employer] Operator: Adolph Diaz MD Potassium [Moles/Vol] 4.5 mmol/L Normal 3.7-5.3 [facility] Comment on above: Performed By: #### C BC, PT, PTT, BMP #### [address] [phone] [employer] Operator: Casey Marques MD #### ANICOT #### [facility] [address], [place] [id number] [employer] Operator: Adolph Diaz MD Sodium [Moles/Vol] 139 mmol/L Normal 135-144 [facility] Comment on above: Performed By: #### C BC, PT, PTT, BMP #### [facility] [place] [address] Strip Cutting Machine Operator: Casey Marques MD #### ANICOT #### [facility] [address], [place] [id number] [employer] Machine Operator: Adolph Diaz MD Urea nitrogen [Mass/Vol] 5 mg/dL Low -20 [facility] Comment on above: Performed By: #### C BC, PT, PTT, BMP #### [facility] [address] [place] [address] [employer] Operator: Casey Marques MD #### ANICOT #### [facility] [address] [place] [address] [employer] Cutting Machine Operator: Adolph Diaz MD BUN/CRE Ratio NOT REPORTED Normal - [facility] Comment on above: Performed By: #### C BC, PT, PTT, BMP #### [facility] [address] [place] [address] [employer] Operator: Casey Marques MD #### ANICOT #### [facility] [address] [place] [address] [employer] Cutting Machine Operator: Adolph Diaz MD Staging: NOT REPORTED Normal [facility] Comment on above: Performed By: #### C BC, PT, PTT, BMP #### [facility] [address] [place] [address] [employer] Operator: Casey Marques MD #### ANICOT #### [facility] [address] [place] [address] [employer] Cutting Machine Operator: Adolph Diaz MD CBC WITH AUTO DIFFERENTIALon 05-08-2020 Basophils (Bld) [#/Vol] 0.06 10*3/uL [facility], [place] Basophils/100 WBC (Bld) 1 % 0 - 2 % [facility], [place] Differential Type NOT REPORTED [place] Eosinophils (Bld) [#/Vol] 0.35 10*3/uL [place] Eosinophils/100 WBC (Bld) 3 % 1 - 4 % [place] Erythrocyte distribution width (RBC) [Ratio] 14.7 % High 11.8 - 14.4 % [place] Hematocrit (Bld) [Volume fraction] 38.4 % 36.3 - 47.1 % [place] Hemoglobin (Bld) [Mass/Vol] 12.0 g/dL 11.9 - 15.1 g/dL [place] Immature granulocytes (Bld) [#/Vol] 1 % High 0 [place] Immature granulocytes (Bld) [#/Vol] 0.06 10*3/uL [place] Interpretation and review of laboratory results Abnormal [place] Lymphocytes (Bld) [#/Vol] 2.21 10*3/uL [place] Lymphocytes/100 WBC (Bld) 21 % Low 24 - 43 % [place] MCH (RBC) [Entitic mass] 26.5 pg 25.2 - 33.5 pg [place] MCHC (RBC) [Mass/Vol] 31.3 g/dL 28.4 - 34.8 g/dL [place] MCV (RBC) [Entitic vol] 85.0 fL 82.6 - 102.9 fL [place] Monocytes (Bld) [#/Vol] 0.71 10*3/uL [place] Monocytes/100 WBC (Bld) 7 % 3 - 12 % [place] Platelet mean volume (Bld) [Entitic vol] 8.6 fL 8.1 - 13.5 fL [place] Platelets (Bld) [#/Vol] 256 10*3/uL [place] Platelets (Bld) [#/Vol] NOT REPORTED [place] RBC (Bld) [#/Vol] 4.52 10*6/uL 3.95 - 5.1 1 m/uL [place] RBC morphology finding Nom (Bld) ANISOCYTOSIS PRESENT [place] Segmented neutrophils/100 WBC (Bld) 67 % High 36 - 65 % [place] Segs Absolute 7.30 [place] WBC (Bld) [#/Vol] 10.7 10*3/uL [place] WBC (Bld) [#/Vol] 0.0 10*3/uL 0.0 per 10 0 WBC [place] WBC Morphology NOT REPORTED [place], [place] CBC with Diffon 05-08-2020 Abs. Basophil 0.06 k/uL Normal 0.00-0.20 [facility] Comment on above: Performed By: #### C BC, PT, PTT, BMP #### [address] [address] Strip Cutting Machine Operator: Casey Marques MD #### SERENEICOT #### [address] [address] Strip Cutting Machine Operator: Adolph Diaz MD Abs.Imm.Granulocyte 0.06 k/uL Normal 0.00-0.30 [facility] Comment on above: Performed By: #### Rudi BC, PT, PTT, BMP #### [address] [id number] [employer] Operator: Casey Marques MD #### ANICOT #### [facility] [address] [place] [address] Strip Cutting Machine Operator: Adolph Diaz MD Abs.Neutrophil (Seg) 7.30 k/uL Normal 1.50-8.10 [facility] Comment on above: Performed By: #### C BC, PT, PTT, BMP #### [facility] [address] [place] [address] Strip Cutting Machine Operator: Casey Marques MD #### ANICOT #### [facility] [address] [place] [address] Strip Cutting Machine Operator: Adolph Diaz MD Basophils/100 WBC (Bld) 1 % Normal 0-2 [facility] Comment on above: Performed By: #### C BC, PT, PTT, BMP #### [address] [address] [employer]ting [employer] Operator: Casey Marques MD #### ANICOT #### [facility] [address] [place] [address] [employer] Cutting Machine Operator: Adolph Diaz MD Eosinophils (Bld) [#/Vol] 0.35 10*3/uL Normal 0.00-0.44 [facility] Comment on above: Performed By: #### C BC, PT, PTT, BMP #### [address] [phone] [employer] Operator: Casey Marques MD #### ANICOT #### [address] [phone] [employer] Operator: Adolph Diaz MD Eosinophils/100 WBC (Bld) 3 % Normal 1-4 [facility] Comment on above: Performed By: #### C BC, PT, PTT, BMP #### [address] [phone] [employer] Operator: Casey Marques MD #### ANICOT #### [facility] [address] [place] [address] [id number] [employer] Operator: Adolph Diaz MD Erythrocyte distribution width (RBC) [Ratio] 14.7 % High 11.8-14.4 [facility] Comment on above: Performed By: #### C BC, PT, PTT, BMP #### [address] [address] [employer] Operator: Casey Marques MD #### ANICOT #### [facility] [address] [place], [place] [id number] Strip Cutting Machine Operator: Adolph Diaz MD Hematocrit (Bld) [Volume fraction] 38.4 % Normal 36.3-47.1 [facility] Comment on above: Performed By: #### C BC, PT, PTT, BMP #### [address] [address] [employer] Operator: Casey Marques MD #### ANICOT #### [address] [phone] [employer] Operator: Adolph Diaz MD Hemoglobin (Bld) [Mass/Vol] 12.0 g/dL Normal 11.9-15.1 [facility] Comment on above: Performed By: #### C BC, PT, PTT, BMP #### [address] [phone] [employer] Operator: Casey Marques MD #### ANICOT #### [address] [phone] [employer] Operator: Adolph Diaz MD Immature granulocytes/100 WBC (Bld) 1 % High 0 [facility] Comment on above: Performed By: #### C BC, PT, PTT, BMP #### [address] [phone] [employer] Operator: Casey Marques MD #### ANICOT #### [address] [phone] [employer] Operator: Adolph Diaz MD Lymphocytes (Bld) [#/Vol] 2.21 10*3/uL Normal 1.10-3.70 [facility] Comment on above: Performed By: #### C BC, PT, PTT, BMP #### [address] [phone] [employer] Operator: Casey Marques MD #### ANICOT #### [address] [phone] [employer] Operator: Adolph Diaz MD Lymphocytes/100 WBC (Bld) 21 % Low 24-43 [facility] Comment on above: Performed By: #### C BC, PT, PTT, BMP #### [address] [address] [employer] Operator: Casey Marques MD #### ANICOT #### [address] [phone] [employer] Operator: Adolph Diaz MD MCH (RBC) [Entitic mass] 26.5 pg Normal 25.2-33.5 [facility] Comment on above: Performed By: #### C BC, PT, PTT, BMP #### [address] [phone] [employer] Operator: Casey Marques MD #### ANICOT #### [address] [phone] [employer] Operator: Adolph Diaz MD MCHC (RBC) [Mass/Vol] 31.3 g/dL Normal 28.4-34.8 [facility] Comment on above: Performed By: #### C BC, PT, PTT, BMP #### [address] [address] [employer] Operator: Casey Marques MD #### ANICOT #### [address] [phone] [employer] Operator: Adolph Diaz MD MCV (RBC) [Entitic vol] 85.0 fL Normal 82.6-102.9 [facility] Comment on above: Performed By: #### C BC, PT, PTT, BMP #### [address] [address] [employer] Operator: Casey Marques MD #### ANICOT #### [address] [address] [employer] Operator: Adolph Diaz MD Monocytes (Bld) [#/Vol] 0.71 10*3/uL Normal 0.10-1.20 [facility] Comment on above: Performed By: #### C BC, PT, PTT, BMP #### [address] [address] [employer] Operator: Casey Marques MD #### ANICOT #### [facility] [address] [place] [address] [employer] Cutting Machine Operator: Adolph Diaz MD Monocytes/100 WBC (Bld) 7 % Normal 3-12 [facility] Comment on above: Performed By: #### C BC, PT, PTT, BMP #### [address] [address] [employer] Operator: Casey Marques MD #### ANICOT #### [facility] [address] [place] [address] [employer] Operator: Adolph Diaz MD Neutrophil (Seg) 67 % High 36-65 [facility] [place] [facility] Comment on above: Performed By: #### C BC, PT, PTT, BMP #### [address] [address] [employer] Operator: Casey Marques MD #### ANICOT #### [facility] [address] [place] [address] [employer] Operator: Adolph Diaz MD NRBC Automated 0.0 per 100 WBC Normal 0.0 [facility] Comment on above: Performed By: #### C BC, PT, PTT, BMP #### [address] [address] [employer] Operator: Casey Marques MD #### ANICOT #### [facility] [address] [place] [address] [employer] Operator: Adolph Diaz MD Platelet mean volume (Bld) [Entitic vol] 8.6 fL Normal 8.1-13.5 [facility] Comment on above: Performed By: #### C BC, PT, PTT, BMP #### [address] [address] [employer] Operator: Casey Marques MD #### ANICOT #### [facility] [address] [place] [address] [employer] Operator: Adolph Diaz MD Platelets (Bld) [#/Vol] 256 10*3/uL Normal 138-453 [facility] Comment on above: Performed By: #### C BC, PT, PTT, BMP #### [address] [address] [employer] Operator: Casey Marques MD #### ANICOT #### [address] [address] [employer] Operator: Adolph Diaz MD RBC (Bld) [#/Vol] 4.52 10*6/uL Normal 3.95-5.11 [facility] Comment on above: Performed By: #### C BC, PT, PTT, BMP #### [address] [address] [employer] Operator: Casey Marques MD #### ANICOT #### [facility] [address] [place] [address] [employer] Operator: Adolph Diaz MD RBC morphology finding Nom (Bld) ANISOCYTOSIS PRESENT Normal [facility] Comment on above: Performed By: #### C BC, PT, PTT, BMP #### [address] [address] [employer] Operator: Casey Marques MD #### ANICOT #### [facility] [address] [place], [place] [id number] [employer] Operator: Adolph Diaz MD WBC (Bld) [#/Vol] 10.7 10*3/uL Normal 3.5-11.3 [facility] Comment on above: Performed By: #### C BC, PT, PTT, BMP #### [address] [address] [employer] Operator: Casey Marques MD #### ANICOT #### [facility] [address] [place] [address] [employer] Operator: Adolph Diaz MD Auto Diff Performed NOT REPORTED Normal [facility] Comment on above: Performed By: #### C BC, PT, PTT, BMP #### [address] [address] [employer] Operator: Casey Marques MD #### ANICOT #### [facility] [address] [place] [address] [employer] Operator: Adolph Diaz MD Platelet Estimate NOT REPORTED Normal [facility] Comment on above: Performed By: #### C BC, PT, PTT, BMP #### [address] [address] [employer] Operator: Casey Marques MD #### ANICOT #### [facility] [address] [place] [address] [employer] Operator: Adolph Diaz MD WBC Morphology NOT REPORTED Normal [facility] Comment on above: Performed By: #### C BC, PT, PTT, BMP #### [facility] [address] [place] [address] [employer] Operator: Casey Marques MD #### ANICOT #### [facility] [address] [place] [address] [employer] Machine Operator: Adolph Diaz MD Surgical Pathologyon 021 Surgical [...] with no areas of granularity or masses. [employer] sections 1cs. tm Microscopic Description Sections of gastric mucosa show increased lymphocytes and plasma cells in the lamina propria. There is no evidence of acute inflammation, intestinal metaplasia or dysplasia. There is no evidence of organisms suspicious for Helicobacter with the routine H&E stains. SURGICAL PATHOLOGY CONSULTATION Patient Name: JAZ SANDERS [facility] Rec: [id number] Path Number: [id number] [facility] [employer] [facility] ANATOMIC PATHOLOGY [address] [place] [address]. [place], [place] [address] [place], [place] Basic Metabolic Panelon 2 Anion gap [Moles/Vol] 13 mmol/L 9 - 17 mmol/L [place], [place] Bun/Cre Ratio NOT REPORTED [place], [place] Calcium [Mass/Vol] 9.4 mg/dL 8.6 - 10. 4 mg/dL [place] Chloride [Moles/Vol] 104 mmol/L 98 - 10 7 mmol/L [place] CO2 [Moles/Vol] 23 mmol/L 20 - 31 mmol/L [place] Creatinine [Mass/Vol] 0.73 mg/dL 0.5 - 0.9 mg/dL [place] GFR >60 >60 mL/min [place], [place] GFR Non- >60 >60 mL/min [place] GFR/1.73 sq M predicted among non-blacks MDRD (S/P/Bld) [Vol rate/Area] NOT REPORTED [place] GFR/1.73 sq M predicted among non-blacks MDRD (S/P/Bld) [Vol rate/Area] [place], [place] Comment on above: Average GFR for 20-2 9 years old: 116 mL/min/1.73sq m Chronic Kidney Disease: <60 mL/min/1.73sq m Kidney failure: <15 mL/min/1.73sq m eGFR calculated using average adult body mass. Additional eGFR calculator available at: http://www.Acousticeye/multiple_crcl_2012.htm Glucose [Mass/Vol] 98 mg/dL 70 - 99 mg/dL [place] Potassium [Moles/Vol] 4.1 mmol/L 3.7 - 5.3 mmol/L [place] Sodium [Moles/Vol] 140 mmol/L 135 - 144 mmol/L [place] Urea nitrogen [Mass/Vol] 6 mg/dL 6 - 20 mg/dL [place] Basic Metabolic Profon 05-07 (cont.) Normal [facility] Comment on above: Result Comment: Aver age GFR for 20-29 years old: 116 mL/min/1.73sq m Chronic Kidney Disease: <60 mL/min/1.73sq m Kidney failure: <15 mL/min/1.73sq m eGFR calculated using average adult body mass. Additional eGFR calculator available at: http://www.Acousticeye/multiple_crcl_2012.htm Performed By: #### Rudi BLANK BMP #### [facility] [address] [place] [address] Strip Cutting Machine Operator: Casey Marques MD Anion gap [Moles/Vol] 13 mmol/L Normal 9-17 [facility] Comment on above: Performed By: #### Rudi BLANK BMP #### [facility] [address] [place] [phone] Strip Cutting Machine Operator: Casey Marques MD Calcium [Mass/Vol] 9.4 mg/dL Normal 8.6-10.4 [facility] Comment on above: Performed By: #### TERRANCE FLORES #### [facility] [address] [place] [address] [employer] Cutting Machine Operator: Casey Marques MD Chloride [Moles/Vol] 104 mmol/L Normal 98-107 [facility] Comment on above: Performed By: #### C BC, BMP #### [facility] [address] [place] [address] Strip Cutting Machine Operator: Casey Marques MD CO2 [Moles/Vol] 23 mmol/L Normal 20-31 [facility] Comment on above: Performed By: #### C BC, BMP #### [address] [address] Strip Cutting Machine Operator: Casey Marques MD Creatinine [Mass/Vol] 0.73 mg/dL Normal 0.50-0.90 [facility] Comment on above: Performed By: #### C BC, BMP #### [address] [address] Strip Cutting Machine Operator: Casey Marques MD GFR, Amer >60 Normal >60 [facility] [place] [facility] Comment on above: Performed By: #### C BC, BMP #### [facility] [address] [place] [address] Strip Cutting Machine Operator: Casey Marques MD GFR,non Amer >60 Normal >60 [facility] Comment on above: Performed By: #### C BC, BMP #### [facility] [address] [place] [address] [employer] Cutting Machine Operator: Casey Marques MD Glucose [Mass/Vol] 98 mg/dL Normal 70-99 [facility] Comment on above: Performed By: #### C BC, BMP #### [facility] [address] [place] [address] Strip Cutting Machine Operator: Casey Marques MD Potassium [Moles/Vol] 4.1 mmol/L Normal 3.7-5.3 [facility] Comment on above: Performed By: #### C BC, BMP #### [facility] [address] [place] [address] 14327 Strip Cutting Machine Operator: Casey Marques MD Sodium [Moles/Vol] 140 mmol/L Normal 135-144 [facility] Comment on above: Performed By: #### C BC, BMP #### [facility] [address] [place] [address]57 Strip Cutting Machine Operator: Casey Marques MD Urea nitrogen [Mass/Vol] 6 mg/dL Normal -20 [facility] Comment on above: Performed By: #### C BC, BMP #### [facility] [address] [place] [address] Strip Cutting Machine Operator: Casey Marques MD BUN/CRE Ratio NOT REPORTED Normal - [facility] Comment on above: Performed By: #### C BC, BMP #### [facility] [address] [place] [address] 7[address]67 Strip Cutting Machine Operator: Casey Marques MD Staging: NOT REPORTED Normal [facility] Comment on above: Performed By: #### C BC, BMP #### [facility] [address] [place] [address] 8[address]45 Strip Cutting Machine Operator: Casey Marques MD CBCon 05-07-2020 Erythrocyte distribution width (RBC) [Ratio] 14.4 % Normal 11.8-14.4 [facility] Comment on above: Performed By: #### C BC, BMP #### [facility] [address] [place] [address] 13846 Strip Cutting Machine Operator: Casey Marques MD Hematocrit (Bld) [Volume fraction] 40.4 % Normal 36.3-47.1 [facility] Comment on above: Performed By: #### C BC, BMP #### [facility] [address] [place] [address] Strip Cutting Machine Operator: Casey Marques MD Hemoglobin (Bld) [Mass/Vol] 12.6 g/dL Normal 11.9-15.1 [facility] Comment on above: Performed By: #### C BC, BMP #### [address] [address] Strip Cutting Machine Operator: Casey Marques MD MCH (RBC) [Entitic mass] 26.1 pg Normal 25.2-33.5 [facility] Comment on above: Performed By: #### C BC, BMP #### [address] [address] Strip Cutting Machine Operator: Casey Marques MD MCHC (RBC) [Mass/Vol] 31.2 g/dL Normal 28.4-34.8 [facility] Comment on above: Performed By: #### C ABHAY, BMP #### [address] [address] Strip Cutting Machine Operator: Casey Marques MD MCV (RBC) [Entitic vol] 83.8 fL Normal 82.6-102.9 [facility] Comment on above: Performed By: #### C BC, BMP #### [address] [address] Strip Cutting Machine Operator: Casey Marques MD NRBC Automated 0.0 per 100 WBC Normal 0.0 [facility] Comment on above: Performed By: #### C BC, BMP #### [address] [address] Strip Cutting Machine Operator: Casey Marques MD Platelet mean volume (Bld) [Entitic vol] 8.7 fL Normal 8.1-13.5 [facility] Comment on above: Performed By: #### C BC, BMP #### [address] [address] Strip Cutting Machine Operator: Casey Marques MD Platelets (Bld) [#/Vol] 289 10*3/uL Normal 138-453 [facility] Comment on above: Performed By: #### C BC, BMP #### [facility] [address] [place], [place] [phone] Strip Cutting Machine Operator: Casey Marques MD RBC (Bld) [#/Vol] 4.82 10*6/uL Normal 3.95-5.11 [facility] Comment on above: Performed By: #### C BC, BMP #### [facility] [address] [place] [address] Strip Cutting Machine Operator: Casey Marques MD WBC (Bld) [#/Vol] 13.7 10*3/uL High 3.5-11.3 [facility] Comment on above: Performed By: #### C BC, BMP #### [facility] [place], [place] [phone] Strip Cutting Machine Operator: Casey Marques MD Erythrocyte distribution width (RBC) [Ratio] 14.4 % 11.8 - 14.4 % [place] Hematocrit (Bld) [Volume fraction] 40.4 % 36.3 - 47.1 % [place] Hemoglobin (Bld) [Mass/Vol] 12.6 g/dL 11.9 - 15.1 g/dL [place] Interpretation and review of laboratory results Abnormal [place] MCH (RBC) [Entitic mass] 26.1 pg 25.2 - 33.5 pg [place] MCHC (RBC) [Mass/Vol] 31.2 g/dL 28.4 - 34.8 g/dL [place] MCV (RBC) [Entitic vol] 83.8 fL 82.6 - 102.9 fL [place] Platelet mean volume (Bld) [Entitic vol] 8.7 fL 8.1 - 13.5 fL [place] Platelets (Bld) [#/Vol] 289 10*3/uL [place] RBC (Bld) [#/Vol] 4.82 10*6/uL 3.95 - 5.1 1 m/uL [place] WBC (Bld) [#/Vol] 0.0 10*3/uL 0.0 per 10 0 WBC [place] WBC (Bld) [#/Vol] 13.7 10*3/uL [place] ESOPHAGRAMon 05-07-2020 [place] ESOPHAGRAM EXAMINATION: [...] Petr Cullen MD 05/07/20 Final result Normal [facility] EXAMINATION: SINGLE CONTRAST ESOPHAGRAM 05/07/2020 HISTORY: [...] sleeve. No obstruction. No extravasation of contrast. [place], [place] Julius, Mhpn Incoming Radiant Results From [employer] - 05/07/2020 10:04 AM EST EXAMINATION: SINGLE [...] of contrast. IMPRESSION: No extravasation of contrast. [place] No extravasation of contrast. [place] POCT urine pregnancyon 05-07 Beta HCG ( test) Ql (U) Negative NEGATIVE [place] Comment on above: Specimens with hCG [...] [Moles/Vol] 10 mmol/L 9 - 17 mmol/L [place] Bun/Cre Ratio NOT REPORTED [place] Calcium [Mass/Vol] 9.5 mg/dL 8.6 - 10. 4 mg/dL [place] Chloride [Moles/Vol] 103 mmol/L 98 - 10 7 mmol/L [place] CO2 [Moles/Vol] 19 mmol/L Low 20 - 31 mmol/L [place] Creatinine [Mass/Vol] 0.9 mg/dL 0.5 - 0.9 mg/dL [place] GFR >60 >60 mL/min [place] GFR Non- >60 >60 mL/min [place] GFR/1.73 sq M predicted among non-blacks MDRD (S/P/Bld) [Vol rate/Area] NOT REPORTED [place] GFR/1.73 sq M predicted among non-blacks MDRD (S/P/Bld) [Vol rate/Area] [place], [place] Comment on above: Average GFR for 20-2 9 years old: 116 mL/min/1.73sq m Chronic Kidney Disease: <60 mL/min/1.73sq m Kidney failure: <15 mL/min/1.73sq m eGFR calculated using average adult body mass. Additional eGFR calculator available at: http://www.Acousticeye/multiple_crcl_2012.htm Glucose [Mass/Vol] 162 mg/dL High 70 - 99 mg/dL [place] Interpretation and review of laboratory results Abnormal [place] Potassium [Moles/Vol] 3.9 mmol/L 3.7 - 5.3 mmol/L [place] Sodium [Moles/Vol] 132 mmol/L Low 135 - 144 mmol/L [place] Urea nitrogen [Mass/Vol] 10 mg/dL 6 - 20 mg/dL [place] Basic Metabolic Profon 05-06 (cont.) Normal [facility] Comment on above: Result Comment: Aver age GFR for 20-29 years old: 116 mL/min/1.73sq m Chronic Kidney Disease: <60 mL/min/1.73sq m Kidney failure: <15 mL/min/1.73sq m eGFR calculated using average adult body mass. Additional eGFR calculator available at: http://www.Acousticeye/multiple_crcl_2012.htm Performed By: #### C BC, BMP #### [facility] [address] [place] [address] Strip Cutting Machine Operator: Casey Marques MD Anion gap [Moles/Vol] 10 mmol/L Normal 9-17 [facility] Comment on above: Performed By: #### C BC, BMP #### [facility] [address] [place], [place] [phone] Strip Cutting Machine Operator: Casey Marques MD Calcium [Mass/Vol] 9.5 mg/dL Normal 8.6-10.4 [facility] Comment on above: Performed By: #### C BC, BMP #### [facility] [address] [place] [address] [phone] Strip Cutting Machine Operator: Casey Marques MD Chloride [Moles/Vol] 103 mmol/L Normal 98-107 [facility] Comment on above: Performed By: #### C BC, BMP #### [facility] [address] [place] [address] Strip Cutting Machine Operator: Casey Marques MD CO2 [Moles/Vol] 19 mmol/L Low 20-31 [facility] Comment on above: Performed By: #### C BC, BMP #### [facility] [address] [place] [address] Strip Cutting Machine Operator: Casey Marques MD Creatinine [Mass/Vol] 0.90 mg/dL Normal 0.50-0.90 [facility] Comment on above: Performed By: #### C BC, BMP #### [facility] [address] [place] [address] Strip Cutting Machine Operator: Casey Marques MD GFR, Amer >60 Normal >60 [facility] [place] [facility] Comment on above: Performed By: #### C BC, BMP #### [facility] [address] [place] [address] 9[address]92 Strip Cutting Machine Operator: Casey Marques MD GFR,non Amer >60 Normal >60 [facility] Comment on above: Performed By: #### C BC, BMP #### [facility] [address] [place] [address] 98582 Strip Cutting Machine Operator: Casey Marques MD Glucose [Mass/Vol] 162 mg/dL High 70-99 [facility] Comment on above: Performed By: #### C BC, BMP #### [facility] [address] [place] [address] Strip Cutting Machine Operator: Casey Marques MD Potassium [Moles/Vol] 3.9 mmol/L Normal 3.7-5.3 [facility] Comment on above: Performed By: #### C BC, BMP #### [facility] [address] [place] [address]99 Strip Cutting Machine Operator: Casey Marques MD Sodium [Moles/Vol] 132 mmol/L Low 135-144 [facility] Comment on above: Performed By: #### C BC, BMP #### [facility] [address] [place] [address] Strip Cutting Machine Operator: Casey Marques MD Urea nitrogen [Mass/Vol] 10 mg/dL Normal 6-20 [facility] Comment on above: Performed By: #### C BC, BMP #### [facility] [address] [place] [address] Strip Cutting Machine Operator: Casey Marques MD BUN/CRE Ratio NOT REPORTED Normal -20 [facility] Comment on above: Performed By: #### C BC, BMP #### [facility] [address] [place] [address] [phone] Strip Cutting Machine Operator: Casey Marques MD Staging: NOT REPORTED Normal [facility] Comment on above: Performed By: #### C BC, BMP #### [facility] [address] [place] [address] Strip Cutting Machine Operator: Casey Marques MD CBCon 05-06-2020 Erythrocyte distribution width (RBC) [Ratio] 14.6 % High 11.8-14.4 [facility] Comment on above: Performed By: #### C BC, BMP #### [facility] [address] [place] [address]20 Strip Cutting Machine Operator: Casey Marques MD Hematocrit (Bld) [Volume fraction] 42.5 % Normal 36.3-47.1 [facility] Comment on above: Performed By: #### C BC, BMP #### [facility] [address] [place] [address] Strip Cutting Machine Operator: Casey Marques MD Hemoglobin (Bld) [Mass/Vol] 12.8 g/dL Normal 11.9-15.1 [facility] Comment on above: Performed By: #### C BC, BMP #### [facility] [address] [place] [address] [phone] Strip Cutting Machine Operator: Casey Marques MD MCH (RBC) [Entitic mass] 26.9 pg Normal 25.2-33.5 [facility] Comment on above: Performed By: #### C BC, BMP #### [address] [address] Strip Cutting Machine Operator: Casey Marques MD MCHC (RBC) [Mass/Vol] 30.1 g/dL Normal 28.4-34.8 [facility] Comment on above: Performed By: #### C BC, BMP #### [address] [address] Strip Cutting Machine Operator: Casey Marques MD MCV (RBC) [Entitic vol] 89.3 fL Normal 82.6-102.9 [facility] Comment on above: Performed By: #### C BC, BMP #### [address] [address] Strip Cutting Machine Operator: Casey Marques MD NRBC Automated 0.0 per 100 WBC Normal 0.0 [facility] Comment on above: Performed By: #### C BC, BMP #### [address] [address] Strip Cutting Machine Operator: Casey Marques MD Platelet mean volume (Bld) [Entitic vol] 8.4 fL Normal 8.1-13.5 [facility] Comment on above: Performed By: #### C BC, BMP #### [address] [address] Strip Cutting Machine Operator: Casey Marques MD Platelets (Bld) [#/Vol] 300 10*3/uL Normal 138-453 [facility] Comment on above: Performed By: #### C BC, BMP #### [address] [address] Strip Cutting Machine Operator: Casey Marques MD RBC (Bld) [#/Vol] 4.76 10*6/uL Normal 3.95-5.11 [facility] Comment on above: Performed By: #### C BC, BMP #### [facility] [address] [place], [place] [phone] Strip Cutting Machine Operator: Casey Marques MD WBC (Bld) [#/Vol] 14.3 10*3/uL High 3.5-11.3 [facility] Comment on above: Performed By: #### C BC, BMP #### [facility] [address] [place], [place] [phone] Strip Cutting Machine Operator: Casey Marques MD CBC without Diffon Erythrocyte distribution width (RBC) [Ratio] 14.6 % High 11.8 - 14.4 % [place] Hematocrit (Bld) [Volume fraction] 42.5 % 36.3 - 47.1 % [place] Hemoglobin (Bld) [Mass/Vol] 12.8 g/dL 11.9 - 15.1 g/dL [place] Interpretation and review of laboratory results Abnormal [place] MCH (RBC) [Entitic mass] 26.9 pg 25.2 - 33.5 pg [place] MCHC (RBC) [Mass/Vol] 30.1 g/dL 28.4 - 34.8 g/dL [place] MCV (RBC) [Entitic vol] 89.3 fL 82.6 - 102.9 fL [place] Platelet mean volume (Bld) [Entitic vol] 8.4 fL 8.1 - 13.5 fL [place] Platelets (Bld) [#/Vol] 300 10*3/uL [place] RBC (Bld) [#/Vol] 4.76 10*6/uL 3.95 - 5.1 1 m/uL [place] WBC (Bld) [#/Vol] 14.3 10*3/uL [place] WBC (Bld) [#/Vol] 0.0 10*3/uL 0.0 per 10 0 WBC [facility], [place] Surgical Pathologyon 021 Surgical Pathology (NOTE) -- Diagnosis -- STOMACH, SLEEVE GASTRECTOMY: - MODERATE CHRONIC INACTIVE GASTRITIS. - NEGATIVE FOR ACTIVE GASTRITIS, INTESTINAL METAPLASIA OR DYSPLASIA. Aaron Saunders M.D. Electronically Signed Out jet05/08/2020 Clinical Information Pre-op Diagnosis: MORBID OBESITY, HYPOTHYROID [...] with no areas of granularity or masses. [employer] sections 1cs. tm Microscopic Description Sections of gastric mucosa show increased lymphocytes and plasma cells in the lamina propria. There is no evidence of acute inflammation, intestinal metaplasia or dysplasia. There is no evidence of organisms suspicious for Helicobacter with the routine BRI stains. SURGICAL PATHOLOGY CONSULTATION Patient Name: JAZ SANDERS [facility] Rec: [id number] Path Number: [id number] [facility] [employer] [facility] ANATOMIC PATHOLOGY [address] [place] [phone] Normal [facility] Comment on above: Performed By: #### C BC, PT, PTT, BMP #### [facility] [address] [place] [address] [phone] Strip Cutting Machine Operator: Casey Marques MD #### ANICOT #### [address] [address] Strip Cutting Machine Operator: Adolph Diaz MD [id number] 05-04-2020 SARS-CoV-2 Normal [facility] Comment on above: Performed By: #### C OVID #### [facility] [address] [place] [address] [phone] Strip Cutting Machine Operator: Casey Marques MD SARS-CoV-2 Not Detected Normal [facility] Comment on above: Result Comment: The specimen is NEGATIVE for SARS-CoV-2, the novel coronavirus associated with COVID-19. A negative result does not rule out COVID-19. Bernard SARS-CoV-2 for use on the Bernard [employer] is a real-time RT-PCR test intended [...] this assay. Fact sheet for Healthcare Providers: https://www.fda.gov/media/356907/download Fact sheet for Patients: https://www.fda.gov/media/576021/download METHODOLOGY: RT-PCR Performed By: #### C OVID #### [facility] [address] [place] [address] Strip Cutting Machine Operator: Casey Marques MD SARS-CoV-2,Rapid [facility] Comment on above: Performed By: #### C OVID #### [facility] [address] [place] [address] Strip Cutting Machine Operator: Casey Marques MD [id number] 05-03-2020 SARS-CoV-[address] SWAB [facility] Comment on above: Performed By: #### C OVID #### [employer] [address] [place] [address] Strip Cutting Machine Operator: Casey Marques MD Nicotineon 04-26-2020 [id number] <2 [facility] Comment on above: Performed By: #### C BC, PT, PTT, BMP #### [facility] [address] [place] [address] Strip Cutting Machine Operator: Casey Marques MD #### ANICOT #### [facility] [address] [place] [address] Strip Cutting Machine Operator: Adolph Diaz MD Cotinine <2 Normal [facility] Comment on above: Performed By: #### C BC, PT, PTT, BMP #### [facility] [address] [place], [place] [phone] Strip Cutting Machine Operator: Casey Marques MD #### ANICOT #### [facility] [address] [place] [address] Strip Cutting Machine Operator: Adolph Diaz MD Nicotine <2 Normal [facility] Comment on above: Result Comment: (NOT [...] positive. Test developed and characteristics determined by [facility]. See Compliance Statement B: [employer] Performed By: [facility] [address] [place] [address] Photo Colorer: Lynn Layne MD Performed By: #### C BC, PT, PTT, BMP #### [facility] [place], [place] [phone] Strip Cutting Machine Operator: Casey Marques MD #### ANICOT #### [facility] [address] [place] [address] Strip Cutting Machine Operator: Adolph Diaz MD Nicotine, Bloodon 04-26-2020 [id number] <2 ng/mL [facility], [place] Cotinine <2 ng/mL [facility], [place] Nicotine <2 ng/mL [facility] Comment on above: (NOTE) Consistent with abstinence [...] positive. Test developed and characteristics determined by [facility]. See Compliance Statement B: [employer] Performed By: [facility] [address] [place] [phone] Photo Colorer: Lynn Layne MD EKG 12 Leadon 04-23-2020 Atrial Rate 95 BPM [facility], [place] P [place] 14 degrees [facility] P-R Interval 134 ms [facility], [place] Q-T Interval 398 ms [facility], [place] QRS Duration 94 ms [facility], [place] QTc Calculation (Bazett) 500 ms [facility], [place] R [place] 15 degrees [facility] [place], [place] T [place] 32 degrees [facility], [place] Ventricular Rate 95 BPM [facility] [place], [place] Normal sinus rhythm with sinus arrhythmia Prolonged QT Abnormal ECG No previous ECGs available [facility], [place] Julius, Mhpn Incoming E kg Results From [facility] - 04/23/2020 12:32 PM EST Normal sinus rhythm with sinus arrhythmia Prolonged QT Abnormal ECG No previous ECGs available [facility] APTTon 04-22-2020 aPTT Coag (Bld) [Time] 22.2 s Normal 20.5-30.5 [facility] Comment on above: Result Comment: IV Heparin Therapy Range: 48.6-77.8 Performed By: #### C BC, PT, PTT, BMP #### [facility] [address] [place] [address] Strip Cutting Machine Operator: Casey Marques MD #### ANLAI #### [facility] [address] [place] [address] Strip Cutting Machine Operator: Adolph Diaz MD aPTT Coag (Bld) [Time] 22.2 s [place] Comment on above: IV Heparin Therapy Range: 48.6-77.8 Basic Metabolic Panelon Anion gap [Moles/Vol] 12 mmol/L 9 - 17 mmol/L [place] Bun/Cre Ratio NOT REPORTED [place], [place] Calcium [Mass/Vol] 9.2 mg/dL 8.6 - 10. 4 mg/dL [place] Chloride [Moles/Vol] 104 mmol/L 98 - 10 7 mmol/L [place] CO2 [Moles/Vol] 23 mmol/L 20 - 31 mmol/L [place] Creatinine [Mass/Vol] 0.69 mg/dL 0.5 - 0.9 mg/dL [place] GFR >60 >60 mL/min [place] GFR Non- >60 >60 mL/min [place] GFR/1.73 sq M predicted among non-blacks MDRD (S/P/Bld) [Vol rate/Area] NOT REPORTED [place] GFR/1.73 sq M predicted among non-blacks MDRD (S/P/Bld) [Vol rate/Area] [place] Comment on above: Average GFR for 20-2 9 years old: 116 mL/min/1.73sq m Chronic Kidney Disease: <60 mL/min/1.73sq m Kidney failure: <15 mL/min/1.73sq m eGFR calculated using average adult body mass. Additional eGFR calculator available at: http://www.Acousticeye/multiple_crcl_2012.htm Glucose [Mass/Vol] 123 mg/dL High 70 - 99 mg/dL [place] Interpretation and review of laboratory results Abnormal [place] Potassium [Moles/Vol] 4.1 mmol/L 3.7 - 5.3 mmol/L [place] Sodium [Moles/Vol] 139 mmol/L 135 - 144 mmol/L [place] Urea nitrogen [Mass/Vol] 7 mg/dL 6 - 20 mg/dL [place] Basic Metabolic Profon 04-22 (cont.) Normal [facility] Comment on above: Result Comment: Aver age GFR for 20-29 years old: 116 mL/min/1.73sq m Chronic Kidney Disease: <60 mL/min/1.73sq m Kidney failure: <15 mL/min/1.73sq m eGFR calculated using average adult body mass. Additional eGFR calculator available at: http://www.Acousticeye/multiple_crcl_2012.htm Performed By: #### C BC, PT, PTT, BMP #### [employer] [address] [place] [phone] Strip Cutting Machine Operator: Casey Marques MD #### ANICOT #### [facility] [address] [place] [address] Strip Cutting Machine Operator: Adolph Diaz MD Anion gap [Moles/Vol] 12 mmol/L Normal 9-17 [facility] Comment on above: Performed By: #### C BC, PT, PTT, BMP #### [employer] [address] [place] [address] [phone] Strip Cutting Machine Operator: Casey Marques MD #### ANICOT #### [facility] [address] [place] [address] Strip Cutting Machine Operator: Adolph Diaz MD Calcium [Mass/Vol] 9.2 mg/dL Normal 8.6-10.4 [facility] Comment on above: Performed By: #### C BC, PT, PTT, BMP #### [address] [id number] [employer] Operator: Casey Marques MD #### ANICOT #### [facility] [address], [place] [id number] [employer] Operator: Adolph Diaz MD Chloride [Moles/Vol] 104 mmol/L Normal 98-107 [facility] Comment on above: Performed By: #### C BC, PT, PTT, BMP #### [address] [id number] [employer] Operator: Casey Marques MD #### ANICOT #### [address] [address] [employer] Operator: Adolph Diaz MD CO2 [Moles/Vol] 23 mmol/L Normal 20-31 [facility] Comment on above: Performed By: #### C BC, PT, PTT, BMP #### [address] [id number] [employer] Operator: Casey Marques MD #### ANICOT #### [address] [id number] [employer] Operator: Adolph Diaz MD Creatinine [Mass/Vol] 0.69 mg/dL Normal 0.50-0.90 [facility] Comment on above: Performed By: #### C BC, PT, PTT, BMP #### [address] [id number] [employer] Operator: Casey Marques MD #### ANICOT #### [facility] [address] [place] [address] [employer] Operator: Adolph Diaz MD GFR, Amer >60 Normal >60 [facility] [place] [facility] Comment on above: Performed By: #### C BC, PT, PTT, BMP #### [address] [address] [employer] Operator: Casey Marques MD #### ANICOT #### [facility] [address] [place] [address] [employer] Operator: Adolph Diaz MD GFR,non Amer >60 Normal >60 [facility] Comment on above: Performed By: #### C BC, PT, PTT, BMP #### [address] [address] [employer] Operator: Casey Marques MD #### ANSAMMIET #### [address] [address] [employer] Operator: Adolph Diaz MD Glucose [Mass/Vol] 123 mg/dL High 70-99 [facility] Comment on above: Performed By: #### C BC, PT, PTT, BMP #### [address] [address] [employer] Operator: Casey Marques MD #### ANICOT #### [address] [address] [employer] Operator: Adolph Diaz MD Potassium [Moles/Vol] 4.1 mmol/L Normal 3.7-5.3 [facility] Comment on above: Performed By: #### C BC, PT, PTT, BMP #### [address] [address] [employer] Operator: Casey Marques MD #### ANICOT #### [facility] [address] [place] [address] [employer] Operator: Adolph Diaz MD Sodium [Moles/Vol] 139 mmol/L Normal 135-144 [facility] Comment on above: Performed By: #### C BC, PT, PTT, BMP #### [facility] [address] [employer] Operator: Casey Marques MD #### ANICOT #### [facility] [address] [place] [address] [employer] Operator: Adolph Diaz MD Urea nitrogen [Mass/Vol] 7 mg/dL Normal 6-20 [facility] Comment on above: Performed By: #### C BC, PT, PTT, BMP #### [address] [address] [employer] Operator: Casey Marques MD #### ANICOT #### [facility] [address] [place] [address] [employer] Operator: Adolph Diaz MD BUN/CRE Ratio NOT REPORTED Normal -20 [facility] Comment on above: Performed By: #### C BC, PT, PTT, BMP #### [address] [address] [employer] Operator: Casey Marques MD #### ANICOT #### [facility] [address] [place] [address] [employer] Operator: Adolph Diaz MD Staging: NOT REPORTED Normal [facility] Comment on above: Performed By: #### C BC, PT, PTT, BMP #### [address] [address] [employer] Operator: Casey Marques MD #### ANICOT #### [facility] [address] [place] [address] [employer] Operator: Adolph Diaz MD CBCon 04-22-2020 Erythrocyte distribution width (RBC) [Ratio] 14.6 % High 11.8-14.4 [facility] Comment on above: Performed By: #### C BC, PT, PTT, BMP #### [facility] [address] [place] [address] [employer] Operator: Casey Marques MD #### ANICOT #### [facility] [address] [place] [address] [employer] Operator: Adolph Diaz MD Hematocrit (Bld) [Volume fraction] 40.8 % Normal 36.3-47.1 [facility] Comment on above: Performed By: #### C BC, PT, PTT, BMP #### [facility] [address] [place] [address] [id number] [employer] Operator: Casey Marques MD #### ANICOT #### [facility] [address] [place] [address] [employer] Operator: Adolph Diaz MD Hemoglobin (Bld) [Mass/Vol] 12.8 g/dL Normal 11.9-15.1 [facility] Comment on above: Performed By: #### C BC, PT, PTT, BMP #### [place] [address] [employer] Operator: Casey Marques MD #### ANICOT #### [facility] [address] [place] [address] [employer] Operator: Adolph Diaz MD MCH (RBC) [Entitic mass] 26.5 pg Normal 25.2-33.5 [facility] Comment on above: Performed By: #### C BC, PT, PTT, BMP #### [facility] [address] [place] [address] [employer] Operator: Casey Marques MD #### ANICOT #### [facility] [address] [place] [address] [employer] Operator: Adolph Diaz MD MCHC (RBC) [Mass/Vol] 31.4 g/dL Normal 28.4-34.8 [facility] Comment on above: Performed By: #### C BC, PT, PTT, BMP #### [address] [id number] [employer] Operator: Casey Marques MD #### ANICOT #### [facility] [address] [place] [address] [employer] Operator: Adolph Diaz MD MCV (RBC) [Entitic vol] 84.5 fL Normal 82.6-102.9 [facility] Comment on above: Performed By: #### C BC, PT, PTT, BMP #### [address] [phone] [employer] Operator: Casey Marques MD #### ANICOT #### [facility] [address] [place] [address] [employer] Operator: Adolph Diaz MD NRBC Automated 0.0 per 100 WBC Normal 0.0 [facility] Comment on above: Performed By: #### C BC, PT, PTT, BMP #### [address] [address] [employer] Operator: Casey Marques MD #### ANICOT #### [address] [address] [employer] Operator: Adolph Diaz MD Platelet mean volume (Bld) [Entitic vol] 8.7 fL Normal 8.1-13.5 [facility] Comment on above: Performed By: #### C BC, PT, PTT, BMP #### [address] [address] [employer] Operator: Casey Marques MD #### ANICOT #### [facility] [address] [place] [address] [employer] Operator: Adolph Diaz MD Platelets (Bld) [#/Vol] 298 10*3/uL Normal 138-453 [facility] Comment on above: Performed By: #### C BC, PT, PTT, BMP #### [facility] [address] [place] [address] [phone] [employer] Operator: Casey Marques MD #### ANICOT #### [facility] [address], [place] [id number] [employer] Operator: Adolph Diaz MD RBC (Bld) [#/Vol] 4.83 10*6/uL Normal 3.95-5.11 [facility] Comment on above: Performed By: #### C BC, PT, PTT, BMP #### [facility] [address] [place] [address] [id number] [employer] Operator: Casey Marques MD #### ANICOT #### [facility] [address], [place] [id number] [employer] Operator: Adolph Diaz MD WBC (Bld) [#/Vol] 10.8 10*3/uL Normal 3.5-11.3 [facility] Comment on above: Performed By: #### C BC, PT, PTT, BMP #### [address] [id number] [employer] Operator: Casey Marques MD #### ANICOT #### [facility] [address], [place] [id number] [employer] Operator: Adolph Diaz MD Erythrocyte distribution width (RBC) [Ratio] 14.6 % High 11.8 - 14.4 % [place], [place] Hematocrit (Bld) [Volume fraction] 40.8 % 36.3 - 47.1 % [place] Hemoglobin (Bld) [Mass/Vol] 12.8 g/dL 11.9 - 15.1 g/dL [place] Interpretation and review of laboratory results Abnormal [place] MCH (RBC) [Entitic mass] 26.5 pg 25.2 - 33.5 pg [place] MCHC (RBC) [Mass/Vol] 31.4 g/dL 28.4 - 34.8 g/dL [place] MCV (RBC) [Entitic vol] 84.5 fL 82.6 - 102.9 fL [place] Platelet mean volume (Bld) [Entitic vol] 8.7 fL 8.1 - 13.5 fL [place] Platelets (Bld) [#/Vol] 298 10*3/uL [place] RBC (Bld) [#/Vol] 4.83 10*6/uL 3.95 - 5.1 1 m/uL [place] WBC (Bld) [#/Vol] 10.8 10*3/uL [place] WBC (Bld) [#/Vol] 0.0 10*3/uL 0.0 per 10 0 WBC [place] Otheron 04-22-2020 No acute cardiopulmonary findings [place] EXAMINATION: TWO XRA Y VIEWS OF THE CHEST 04/22/2020 2:46 pm COMPARISON: Baseline examination HISTORY: ORDERING SYSTEM PROVIDED HISTORY: preop gastric bypass [employer] TECHNOLOGIST PROVIDED HISTORY: preop gastric bypass Ben En Y Reason for Exam: preop gastric bypass FINDINGS: Normal cardiopericardial silhouette There are no significant pleural, parenchymal, mediastinal or osseous findings [place], [place] Julius, [facility] Incoming Radiant Results From [facility] - 04/22/2020 3:28 PM EST EXAMINATION: TWO XRAY VIEWS OF THE CHEST 04/22/2020 2:46 pm COMPARISON: Baseline examination HISTORY: ORDERING SYSTEM PROVIDED HISTORY: preop gastric bypass Ben [employer] TECHNOLOGIST PROVIDED HISTORY: preop gastric bypass Ben En Y Reason for Exam: preop gastric bypass FINDINGS: Normal cardiopericardial silhouette There are no significant pleural, parenchymal, mediastinal or osseous findings IMPRESSION: No acute cardiopulmonary findings [place], [place] PTon 04-22-2020 INR Coag (PPP) [Relative time] 0.9 {INR} Normal [facility] Comment on above: Result Comment: Therapeutic Range: Moderate Anticoagulant Intensity: INR = 2.0-3.0 High Anticoagulant Intensity: INR = 2.5-3.5 Performed By: #### C BC, PT, PTT, BMP #### [facility] [address] [place] [address] [place] [address] [employer] Cut[employer] Operator: Casey Marques MD #### ANICOT #### [facility] [address], [place] [id number] [employer] Operator: Adolph Diaz MD PT Coag (PPP) [Time] 9.3 s Normal 9.0-12.0 [facility] Comment on above: Performed By: #### C BC, PT, PTT, BMP #### [facility] [place] [address] Strip Cutting Machine Operator: Casey Marques MD #### ANICOT #### [facility] [address] [place] [address] [employer] Operator: Adolph Diaz MD [employer] 04-22-2020 INR Coag (PPP) [Relative time] 0.9 {INR} [place], [place] Comment on above: Therapeutic Range: Moderate Anticoagulant Intensity: INR = 2.0-3.0 High Anticoagulant Intensity: INR = 2.5-3.5 PT Coag (PPP) [Time] 9.3 s [place], [place] XR CHEST (2 VW)on 04-22-2020 XR [...] Roxanne Avitia MD 04/22/20 Final result Normal [facility] Vital Signs Date Time Vital Sign Value Performing Clinician Sonal lerma 12-05-2024 12:46-0400 Body height 180.3 cm Latricia Lindquist MD Work Phone: [employer] 12-05-2024 12:46-0400 Body mass index (BMI) [Ratio] 35.84 kg/m2 Latricia Lindquist MD Work Phone: [facility] 12-05-2024 12:46-0400 Body weight 116.57 kg Latricia Lindquist MD Work Phone: [facility] 12-05-2024 12:46-0400 Diastolic blood pressure 62 mm[Hg] Latricia Lindquist MD Work Phone: [facility] 12-05-2024 12:46-0400 Heart rate 73 /min Latricia Lindquist MD Work Phone: [facility] 12-05-2024 12:46-0400 Systolic blood pressure 95 mm[Hg] Latricia Lindquist MD Work Phone: [facility] 12-02-2024 23:35-0400 Body height 180.34 cm Amanda Ford APRN Work Phone: [facility] 12-02-2024 23:35-0400 Body temperature 97.2 [degF] Amanda Ford APRN Work Phone: [facility] 12-02-2024 23:35-0400 Body weight 115.66 kg Amanda Ford APRN Work Phone: [facility] 12-02-2024 23:35-0400 Diastolic blood pressure 56 mm[Hg] Amanda Ford APRN Work Phone: [facility] 12-02-2024 23:35-0400 Heart rate 75 /min Amanda Ford APRN Work Phone: [facility] 12-02-2024 23:35-0400 Respiratory rate 16 /min Amanda Ford APRN Work Phone: [facility] 12-02-2024 23:35-0400 SaO2% (BldA) [Mass fraction] 97 % Amanda Ford APRN Work Phone: [facility] 12-02-2024 23:35-0400 Systolic blood pressure 119 mm[Hg] Amanad Ford MOLDING FITTER Work Phone: [facility] 11-20-2024 10:37-0400 Body weight 116.1216 kg Amanda Ford MOLDING FITTER Work Phone: [facility] 11-20-2024 09:10-0400 Body mass index (BMI) [Ratio] 35.7 kg/m2 Les Juan DO Work Phone: [facility] 11-20-2024 09:10-0400 Body weight 116.12 kg Les Juan DO Work Phone: [facility] 11-20-2024 09:10-0400 Diastolic blood pressure 64 mm[Hg] Les Juan DO Work Phone: [facility] 11-20-2024 09:10-0400 Systolic blood pressure 114 mm[Hg] Les Juan DO Work Phone: [facility] 10-22-2024 11:28-0400 Body mass index (BMI) [Ratio] 31.24 kg/m2 Les Juan DO Work Phone: [facility] 10-22-2024 11:28-0400 Body weight 101.61 kg Les Juan DO Work Phone: [facility] 10-22-2024 11:28-0400 Diastolic blood pressure 62 mm[Hg] Les Juan DO Work Phone: [facility] 10-22-2024 11:28-0400 Systolic blood pressure 110 mm[Hg] Les Juan DO Work Phone: [facility] 10-18-2024 13:34-0400 Diastolic blood pressure 71 mm[Hg] Amanda Ford MOLDING FITTER Work Phone: [facility] 10-18-2024 13:34-0400 Heart rate 60 /min Amanda Ford MOLDING FITTER Work Phone: [facility] 10-18-2024 13:34-0400 Respiratory rate 18 /min Amanda Hahndeirdre MOLDING FITTER Work Phone: [facility] 10-18-2024 13:34-0400 SaO2% (BldA) [Mass fraction] 99 % Amanda Ford MOLDING FITTER Work Phone: [facility] 10-18-2024 13:34-0400 Systolic blood pressure 112 mm[Hg] Amanda Hahndeirdre MOLDING FITTER Work Phone: [facility] 10-18-2024 10:38-0400 Body height 180.34 cm Amanda Hahndeirdre MOLDING FITTER Work Phone: [facility] 10-18-2024 10:38-0400 Body temperature 98.1 [degF] Amanda Hahndeirdre MOLDING FITTER Work Phone: [facility] 10-18-2024 10:38-0400 Body weight 106.85 kg Amanda Hahndeirdre MOLDING FITTER Work Phone: [facility] 09-20-2024 15:06-0400 Body mass index (BMI) [Ratio] 31.24 kg/m2 [facility] 09-20-2024 15:06-0400 Body weight 101.61 kg [facility] 09-20-2024 15:06-0400 Diastolic blood pressure 74 mm[Hg] [facility] 09-20-2024 15:06-0400 Systolic blood pressure 122 mm[Hg] [facility] 08-22-2024 10:04-0400 Body height 180.3 cm Darleen Sinclair MD Work Phone: [facility] 08-22-2024 10:04-0400 Body mass index (BMI) [Ratio] 29.99 kg/m2 Darleen Sinclair MD Work Phone: [facility] 08-22-2024 10:04-0400 Body weight 97.52 kg Darleen Sinclair MD Work Phone: [facility] 08-22-2024 10:04-0400 Diastolic blood pressure 56 mm[Hg] Darleen Sinclair MD Work Phone: [facility] 08-22-2024 10:04-0400 Heart rate 67 /min Darleen Sinclair MD Work Phone: [facility] 08-22-2024 10:04-0400 Respiratory rate 16 /min Darleen Sinclair MD Work Phone: [facility] 08-22-2024 10:04-0400 SaO2% (BldA) [Mass fraction] 99 % Darleen Sinclair MD Work Phone: [facility] 08-22-2024 10:04-0400 Systolic blood pressure 124 mm[Hg] Darleen Sinclair MD Work Phone: [facility] 04-26-2024 08:32-0500 Body height 180.34 cm [facility] 04-26-2024 08:32-0500 Body mass index (BMI) [Ratio] 30.4 kg/m2 [facility] 04-26-2024 08:32-0500 Body temperature 97.3 [degF] [facility] 04-26-2024 08:32-0500 Body weight 98.99 kg [facility] 04-26-2024 08:32-0500 Diastolic blood pressure 60 mm[Hg] [facility] 04-26-2024 08:32-0500 Heart rate 73 /min [facility] 04-26-2024 08:32-0500 SaO2% (BldA) [Mass fraction] 98 % [facility] 04-26-2024 08:32-0500 Systolic blood pressure 112 mm[Hg] [facility] 02-28-2024 14:03-0500 Body height 180.3 cm Ignacio Guy MD Work Phone: [facility] 02-28-2024 14:03-0500 Body mass index (BMI) [Ratio] 30.23 kg/m2 Ignacio Guy MD Work Phone: [facility] 02-28-2024 14:03-0500 Body weight 98.3 kg Ignacio Guy MD Work Phone: [facility] 02-20-2024 15:12-0500 Body mass index (BMI) [Ratio] 31.71 kg/m2 Les Juan DO Work Phone: [facility] 02-20-2024 15:12-0500 Body weight 100.25 kg Els Juan DO Work Phone: [facility] 02-20-2024 15:12-0500 Diastolic blood pressure 68 mm[Hg] Les Juan DO Work Phone: [facility] 02-20-2024 15:12-0500 Systolic blood pressure 118 mm[Hg] Les Juan DO Work Phone: [facility] 12-07-2023 11:46-0400 Diastolic blood pressure 67 mm[Hg] MELY Ford Work Phone: [facility] 12-07-2023 11:46-0400 Heart rate 76 /min MOLDING FITTERTanja Ford Work Phone: [facility] 12-07-2023 11:46-0400 Respiratory rate 16 /min MELY Frod Work Phone: [facility] 12-07-2023 11:46-0400 SaO2% (BldA) [Mass fraction] 99 % MELY Ford Work Phone: [facility] 12-07-2023 11:46-0400 Systolic blood pressure 149 mm[Hg] MELY Ford Work Phone: [facility] 12-07-2023 10:20-0400 Body temperature 98 [degF] MELY Ford Work Phone: [facility] 12-07-2023 09:55-0400 Inhaled oxygen flow rate 3 L/min MOLDING FITTERTanja Patel Logan Work Phone: [facility] 12-07-2023 06:29-0400 Body height 180.34 cm MOLDING FITTER Amanda Roasriosudhakar Work Phone: [facility] 12-07-2023 06:29-0400 Body weight 95.25 kg MOLDING FITTERTanja MittalAmanda Rosariosudhakar Work Phone: [facility] 11-01-2023 11:56-0400 Body height 180.34 cm MOLDING FITTER Amanda Rosariosudhakar Work Phone: [facility] 11-01-2023 11:56-0400 Body mass index (BMI) [Ratio] 28.8 kg/m2 MOLDING FITTERTanja Patel Rosariosudhakar Work Phone: [facility] 11-01-2023 11:56-0400 Body weight 93.89 kg MOLDING FITTER Amanda Rosariosudhakar Work Phone: [facility] 06-08-2023 14:56-0500 Body height 180.34 cm [facility] 06-08-2023 14:56-0500 Body mass index (BMI) [Ratio] 29.4 kg/m2 [facility] 06-08-2023 14:56-0500 Body weight 95.7 kg [facility] 06-08-2023 14:56-0500 Diastolic blood pressure 68 mm[Hg] [facility] 06-08-2023 14:56-0500 Heart rate 51 /min [facility] 06-08-2023 14:56-0500 SaO2% (BldA) [Mass fraction] 98 % [facility] 06-08-2023 14:56-0500 Systolic blood pressure 122 mm[Hg] [facility] 05-17-2023 14:30-0500 Body height 180.34 cm Romeo Santana Other [facility] 05-17-2023 14:30-0500 Body mass index (BMI) [Ratio] 27.47 kg/m2 Romeo Santana Other [facility] Other 05-17-2023 14:30-0500 Body weight 89.36 kg Romeo Santana Other [facility] 05-17-2023 14:30-0500 Body weight 89.35 kg [facility] 02-07-2023 14:30-0400 Body height 180.34 cm Petr Lay Other [facility] Other 02-07-2023 14:30-0400 Body mass index (BMI) [Ratio] 27.61 kg/m2 Petr Lay Other [facility] 02-07-2023 14:30-0400 Body temperature 98.1 [degF] Petr Lay Other [facility] 02-07-2023 14:30-0400 Body weight 89.81 kg Petr Lay Other [facility] 02-07-2023 14:30-0400 Diastolic blood pressure 76 mm[Hg] Petr Lay Other [facility] Other 02-07-2023 14:30-0400 SaO2% (BldA) [Mass fraction] 99 % Petr Lay Other [facility] 02-07-2023 14:30-0400 Systolic blood pressure 128 mm[Hg] Petr Lay Other [facility] 12-27-2022 11:30-0400 Body height 180.34 cm Petr Lay Other [facility] 12-27-2022 11:30-0400 Body mass index (BMI) [Ratio] 28.03 kg/m2 Petr Lay Other [facility] Other 12-27-2022 11:30-0400 Body weight 91.17 kg Petr Lay Other [facility] Other 12-27-2022 11:30-0400 Diastolic blood pressure 64 mm[Hg] Petr Lay Other [facility] Other 12-27-2022 11:30-0400 Respiratory rate 18 /min Petr Lay Other [facility] Other 12-27-2022 11:30-0400 SaO2% (BldA) [Mass fraction] 99 % Petr Lay Other [facility] Other 12-27-2022 11:30-0400 Systolic blood pressure 128 mm[Hg] Petr Lay Other [facility] Other 10-11-2022 13:30-0400 Body height 180.34 cm Petr Lay Other [facility] Other 10-11-2022 13:30-0400 Body mass index (BMI) [Ratio] 28.78 kg/m2 Petr Lay Other [facility] Other 10-11-2022 13:30-0400 Body weight 93.62 kg Petr Lay Other [facility] Other 10-11-2022 13:30-0400 Diastolic blood pressure 78 mm[Hg] Petr Lay Other [facility] Other 10-11-2022 13:30-0400 Respiratory rate 18 /min Petr Lay Other [facility] Other 10-11-2022 13:30-0400 SaO2% (BldA) [Mass fraction] 98 % Petr Lay Other [facility] Other 10-11-2022 13:30-0400 Systolic blood pressure 122 mm[Hg] Petr Lay Other [facility] Other 09-30-2022 08:00-0400 Body height 180.34 cm Amanda Ford Other [facility] Other 09-30-2022 08:00-0400 Body mass index (BMI) [Ratio] 28.03 kg/m2 Amanda Ford Other [facility] Other 09-30-2022 08:00-0400 Body weight 91.17 kg Amanda Ford Other [facility] 09-30-2022 08:00-0400 Diastolic blood pressure 84 mm[Hg] Amanda Ford Other [facility] 09-30-2022 08:00-0400 SaO2% (BldA) [Mass fraction] 95 % Amanda Ford Other [facility] Other 09-30-2022 08:00-0400 Systolic blood pressure 126 mm[Hg] Amanda Ford Other [facility] 08-25-2022 15:30-0400 Body height 180.34 cm Amanda Hahndeirdre Other [facility] Other 08-25-2022 15:30-0400 Body mass index (BMI) [Ratio] 29.15 kg/m2 Amanda Hahnr Other [facility] Other 08-25-2022 15:30-0400 Body weight 94.8 kg Amanad Shethsarahangelr Other [facility] Other 08-25-2022 15:30-0400 Diastolic blood pressure 77 mm[Hg] Amanda Shethstefanyr Other [facility] Other 08-25-2022 15:30-0400 Systolic blood pressure 126 mm[Hg] Amanda Jovanir Other [facility] 08-20-2022 11:00-0400 Body height 180.34 cm Amanda Shethsarahangeldeirdre Other [facility] Other 08-20-2022 11:00-0400 Body mass index (BMI) [Ratio] 28.73 kg/m2 Amanda Jovanir Other [facility] Other 08-20-2022 11:00-0400 Body weight 93.44 kg Amanda Shethsarahacher Other [facility] Other 08-20-2022 11:00-0400 Diastolic blood pressure 72 mm[Hg] Amanda Rosarioacher Other [facility] Other 08-20-2022 11:00-0400 SaO2% (BldA) [Mass fraction] 100 % Amanda Ford Other [facility] [employer] Other 08-20-2022 11:00-0400 Systolic blood pressure 118 mm[Hg] Amanda Logan Other [facility] [employer] Other 06-11-2022 16:43-0500 Body temperature 98.1 [degF] MD Robin Appiah Work Phone: [facility] 06-11-2022 16:43-0500 Diastolic blood pressure 56 mm[Hg] MD Robin Appiah Work Phone: [facility] 06-11-2022 16:43-0500 Heart rate 60 /min MD Robin Appiah Work Phone: [facility] 06-11-2022 16:43-0500 Respiratory rate 16 /min MD Robin Appiah Work Phone: [facility] 06-11-2022 16:43-0500 SaO2% (BldA) [Mass fraction] 100 % MD Robin Appiah Work Phone: [facility] 06-11-2022 16:43-0500 Systolic blood pressure 102 mm[Hg] MD Robin Appiah Work Phone: [facility] 06-11-2022 09:40-0500 Body height 180.34 cm MD Robin Appiah Work Phone: [facility] 06-11-2022 05:42-0500 Body weight 93 kg MD Robin Appiah Work Phone: [facility] 06-10-2022 17:55-0500 Body temperature 98.1 [degF] MD Robin Appiah Work Phone: [facility] 06-10-2022 17:55-0500 Diastolic blood pressure 56 mm[Hg] MD Robin Appiah Work Phone: [facility] 06-10-2022 17:55-0500 Heart rate 62 /min MD Robin Appiah Work Phone: [facility] 06-10-2022 17:55-0500 Respiratory rate 18 /min MD Robin Appiah Work Phone: [facility] 06-10-2022 17:55-0500 SaO2% (BldA) [Mass fraction] 100 % MD Robin Appiah Work Phone: [facility] 06-10-2022 17:55-0500 Systolic blood pressure 122 mm[Hg] MD Robin Appiah Work Phone: [facility] 06-10-2022 14:22-0500 Body height 180.34 cm MD Robin Appiah Work Phone: [facility] 06-10-2022 14:22-0500 Body weight 92.7 kg MD Robin Appiah Work Phone: [facility] 04-21-2022 15:00-0500 Body height 180.34 cm Amanda Ford Other [facility] Other 04-21-2022 15:00-0500 Body mass index (BMI) [Ratio] 27.81 kg/m2 Amanda Ford Other [facility] Other 04-21-2022 15:00-0500 Body temperature 98.2 [degF] Amanda Ford Other [facility] Other 04-21-2022 15:00-0500 Body weight 90.45 kg Amanda Ford Other [facility] Other 04-21-2022 15:00-0500 Diastolic blood pressure 68 mm[Hg] Amanda Ford Other [facility] Other 04-21-2022 15:00-0500 Respiratory rate 18 /min Amanda Logan Other Vetr Other 04-21-2022 15:00-0500 SaO2% (BldA) [Mass fraction] 99 % Amanda Logan Other Vetr Other 04-21-2022 15:00-0500 Systolic blood pressure 111 mm[Hg] Amanda Logan Other Vetr Other 04-10-2022 21:41-0500 Diastolic blood pressure 56 mm[Hg] MD Robin Appiah Work Phone: [facility] 04-10-2022 21:41-0500 Systolic blood pressure 112 mm[Hg] MD Robin Appiah Work Phone: [facility] 04-10-2022 18:14-0500 Body height 180.34 cm MD Robin Appiah Work Phone: [facility] 04-10-2022 18:14-0500 Body temperature 98.1 [degF] MD Robin Appiah Work Phone: [facility] 04-10-2022 18:14-0500 Body weight 88 kg MD Robin Appiah Work Phone: [facility] 04-10-2022 18:14-0500 Heart rate 119 /min MD Robin Appiah Work Phone: [facility] 04-10-2022 18:14-0500 Respiratory rate 18 /min MD Robin Appiah Work Phone: [facility] 04-10-2022 18:14-0500 SaO2% (BldA) [Mass fraction] 100 % MD Robin Appiah Work Phone: [facility] 04-08-2022 17:15-0500 Body temperature 97.5 [degF] MD Robin Appiah Work Phone: [facility] 04-08-2022 17:15-0500 Diastolic blood pressure 59 mm[Hg] MD Robin Appiah Work Phone: [facility] 04-08-2022 17:15-0500 Heart rate 59 /min MD Robin Appiah Work Phone: [facility] 04-08-2022 17:15-0500 Respiratory rate 18 /min MD Robin Appiah Work Phone: [facility] 04-08-2022 17:15-0500 SaO2% (BldA) [Mass fraction] 100 % MD Robin Appiah Work Phone: [facility] 04-08-2022 17:15-0500 Systolic blood pressure 128 mm[Hg] MD Robin Appiah Work Phone: [facility] 04-08-2022 14:33-0500 Body height 180.34 cm MD Robin Appiah Work Phone: [facility] 04-08-2022 14:33-0500 Body weight 88.1 kg MD Robin Appiah Work Phone: [facility] 03-23-2022 15:30-0500 Body height 180.34 cm Amanda Ford Other Vetr Other 03-23-2022 15:30-0500 Body mass index (BMI) [Ratio] 27.05 kg/m2 Amanda Ford Other Vetr Other 03-23-2022 15:30-0500 Body weight 88 kg Amanda Ford Other Vetr Other 03-23-2022 15:30-0500 Diastolic blood pressure 82 mm[Hg] Amanda Logan Other Vetr Other 03-23-2022 15:30-0500 SaO2% (BldA) [Mass fraction] 98 % Amanda Logan Other Vetr Other 03-23-2022 15:30-0500 Systolic blood pressure 137 mm[Hg] Amanda Logan Other Vetr Other 02-08-2022 10:00-0400 Body height 180.34 cm Amanda Logan Other Vetr Other 02-08-2022 10:00-0400 Body mass index (BMI) [Ratio] 27.47 kg/m2 Amanda Logan Other Vetr Other 02-08-2022 10:00-0400 Body weight 89.36 kg Amanda Shethbilly Other Vetr Other 02-08-2022 10:00-0400 Diastolic blood pressure 62 mm[Hg] Amadna Logan Other Vetr Other 02-08-2022 10:00-0400 Systolic blood pressure 110 mm[Hg] Amanda Logan Other Vetr Other 09-01-2021 14:38-0400 Blood Pressure Location Samir Thompson [facility] 09-01-2021 14:38-0400 Diastolic blood pressure 61 mm[Hg] Samir Thompson [facility] 09-01-2021 14:38-0400 Heart rate 61 /min Samir Christofferson [facility] 09-01-2021 14:38-0400 Respiratory rate 18 /min Samir Christofferson [facility] 09-01-2021 14:38-0400 SaO2% (BldA) [Mass fraction] 100 % Samir Christofferson [facility] 09-01-2021 14:38-0400 Systolic blood pressure 103 mm[Hg] Samir Christofferson [facility] 07-24-2021 14:39-0400 Blood Pressure Location Samir Christofferson [facility] 07-24-2021 14:39-0400 Diastolic blood pressure 77 mm[Hg] Samir Christofferson [facility] 07-24-2021 14:39-0400 Heart rate 65 /min Samir Christofferson [facility] 07-24-2021 14:39-0400 Respiratory rate 18 /min Samir Christofferson [facility] 07-24-2021 14:39-0400 SaO2% (BldA) [Mass fraction] 100 % Samir Christofferson [facility] 07-24-2021 14:39-0400 Systolic blood pressure 115 mm[Hg] Samir Christofferson [facility] 07-16-2021 11:00-0400 Body height 180.34 cm Amanda Ford Other Vetr Other 07-16-2021 11:00-0400 Body mass index (BMI) [Ratio] 29.15 kg/m2 Amanda Ford Other Vetr Other 07-16-2021 11:00-0400 Body weight 94.8 kg Amanda Shethbilly Other Vetr Other 07-16-2021 11:00-0400 Diastolic blood pressure 64 mm[Hg] Amanda Loagn Other Vetr Other 07-16-2021 11:00-0400 SaO2% (BldA) [Mass fraction] 98 % Amanda Logan Other Vetr Other 07-16-2021 11:00-0400 Systolic blood pressure 102 mm[Hg] Amanda Logan Other Vetr Other 05-08-2020 08:20-0500 Body Temperature 97.7 [degF] [facility] [place] 05-08-2020 08:20-0500 BP Diastolic 89 mm[Hg] [facility] [place] 05-08-2020 08:20-0500 BP Systolic 156 mm[Hg] [facility] [place] 05-08-2020 08:20-0500 Pulse (Heart Rate) 101 /min Rashard Olivera [facility] [place] 05-08-2020 08:20-0500 Pulse Oximetry 96 % [facility] [place] 05-08-2020 08:20-0500 Respiratory Rate 19 /min [facility] [place] 05-06-2020 08:51-0500 BMI (Body Mass Index) 58.86 kg/m2 Rashard Olivera [facility] [place] 05-06-2020 08:51-0500 Body weight 191.42 kg [facility]ard [facility] [place] 05-06-2020 08:51-0500 Height 180.3 cm Rashard [facility] [place] 04-22-2020 13:30-0500 BMI (Body Mass Index) 61.79 kg/m2 [address], [place] 04-22-2020 13:30-0500 Body Temperature 97.11 [degF] [address], [place] 04-22-2020 13:30-0500 Body weight 200.[address] , [place] 04-22-2020 13:30-0500 BP Diastolic 90 mm[Hg] [address] , [place] 04-22-2020 13:30-0500 BP Systolic 148 mm[Hg] [address] , [place] 04-22-2020 13:30-0500 Height 180.[address] , [place] 04-22-2020 13:30-0500 Pulse (Heart Rate) 104 /min [address] 04-22-2020 13:30-0500 Pulse Oximetry 97 % [address] , [place] 04-22-2020 13:30-0500 Respiratory Rate 18 /min [address] Encounters Encounter Date Encounter Type Care Provider Facility Start: 12-05-2024 End: 12-05-2024 Office consultation new/estab patient 80 min Latricia Lindquist MD Work Phone: [facility] Comment on above: 20 weeks gestation o f (Primary Dx); Previous gastric bypass affecting , antepartum; Obesity affecting in second trimester, unspecified obesity type; Hypothyroidism affecting in second trimester; 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 ([facility]); headache in second trimester Start: 12-05-2024 End: 12-05-2024 Orders Only Chiquita Shen RN [facility] at [facility] Comment on above: Previous gastric byp ass affecting , antepartum (Primary Dx); Hypothyroidism affecting in second trimester; 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 ([facility]); Obesity affecting in second trimester, unspecified obesity type; Encounter for supervision of resulting from assisted reproductive technology, antepartum Start: 12-04-2024 End: 12-04-2024 ambulatory LES JUAN Not Available Start: 12-02-2024 End: 12-03-2024 Patient encounter procedure Eduardo A Visci DO -[facility] - O/P Start: 12-02-2024 End: 12-03-2024 ambulatory Amanda Ford MOLDING FITTER Work Phone: [facility] Work Phone: Start: 12-02-2024 End: 12-03-2024 External Result Encounter Eduardo A Visci DO Work Phone: [facility] External Department Unsolicited Start: 12-02-2024 End: 12-03-2024 External Result Encounter Eduardo A Visci DO Work Phone: [facility] External Department Unsolicited Start: 12-01-2024 Non-patient / Non-visit ([place]) Elizabeth MCDERMOTT -[facility] Work Phone: Start: 11-30-2024 End: 11-30-2024 ambulatory Amanda Ford MOLDING FITTER Work Phone: [facility] Work Phone: Start: 11-30-2024 End: 11-30-2024 Departed Referred Chris Chapman DO -[facility] Start: 11-30-2024 Non-patient / Non-visit Chris Chapman DO -[facility] Work Phone: Start: 11-20-2024 End: 11-20-2024 Bamboo flowsheet Les Juan DO Work Phone: [facility] Start: 11-20-2024 End: 11-21-2024 Bamboo flowsheet Les Juan DO Work Phone: [facility] Start: 11-20-2024 End: 11-20-2024 Clinisync Result Encounter Les Juan DO Work Phone: [facility] External Department Unsolicited Start: 11-20-2024 End: 11-21-2024 External Result Encounter Les Monsivaiso DO Work Phone: [facility] External Department Unsolicited Start: 11-20-2024 Non-patient / Non-visit Les Martinez -[facility] [employer] [facility] Work Phone: Start: 11-20-2024 End: 11-20-2024 Patient encounter procedure Les Monsivaiso DO Work Phone: [facility] Start: 11-20-2024 End: 11-20-2024 Periodic preventive med est patient 18-39 yrs Les Monsivaiso DO Work Phone: [facility] Comment on above: Well woman exam with routine gynecological exam; Exposure to STD; Second trimester ([facility]); 18 weeks gestation of ([facility]); Need for maternal serum alpha-protein (MSAFP) screening ([facility]); Screening, , for anatomic survey ([facility]); Thyroid disease Start: 11-20-2024 End: 11-20-2024 ambulatory LES JUAN Not Available Start: 11-17-2024 Non-patient / Non-visit Chris Chapman -[facility] Work Phone: Start: 10-26-2024 End: 10-26-2024 Orders Only Not In System Ref Prov [facility]- [facility] at [facility] Start: 10-22-2024 End: 10-22-2024 Office outpatient visit 15 minutes Les Monsivaiso DO Work Phone: [facility] Comment on above: 13 weeks gestation o f ([facility]); Second trimester ([facility]); Thyroid disease ; H/O gastric sleeve; H/O iron deficiency anemia; resulting from in vitro fertilization in first trimester ([facility]) Start: 10-22-2024 End: 10-22-2024 ambulatory LES JUAN Not Available Start: 10-18-2024 End: 10-18-2024 Emergency department patient visit Amanda Ford MOLDING FITTER Work Phone: -Emergency Room Work Phone: Start: 10-10-2024 End: 10-10-2024 Clinisync Result Encounter Les Martinez DO Work Phone: [facility] External Department Unsolicited Start: 10-10-2024 End: 10-10-2024 Clinisync Result Encounter Les Martinez DO Work Phone: [facility] External Department Unsolicited Start: 09-26-2024 End: 09-26-2024 ambulatory Amanda Ford Facility:[facility] Start: 09-20-2024 End: 09-20-2024 Office outpatient visit 5 minutes [facility] Juan Nurse [facility] Comment on above: GA: 9w2d Start: 09-20-2024 End: 09-20-2024 ambulatory DARLEEN SINCLAIR Not Available Start: 09-03-2024 End: 09-03-2024 Nursing evaluation of patient and report Us Tech [facility] Rej Work Phone: [facility] Endocrinology Inf[facility] Comment on above: Early stage of pregn paulo (HCC) Start: 09-03-2024 End: 09-03-2024 ambulatory SHELLY HERNANDEZ Facility:[facility] Start: 08-28-2024 End: 08-28-2024 Nursing evaluation of patient and report Us Tech 2 [facility] Beac Work Phone: [facility]ocrinology [facility]ertility Comment on above: resulting from assisted reproductive technology in first trimester ([facility]) Start: 08-28-2024 End: 08-28-2024 ambulatory SHELLY HERNANDEZ Facility:[facility] Start: 08-24-2024 End: 08-24-2024 Telephone encounter Shelly Hernandez MOLDING FITTER.WORKER'S COMPENSATION CLAIMS EXAMINER Work Phone: [facility] Comment on above: Patient Question Start: 08-23-2024 End: 08-24-2024 Telephone encounter Shelly Hernandez MOLDING FITTER.WORKER'S COMPENSATION CLAIMS EXAMINER Work Phone: [facility] Comment on above: Pain Start: 08-22-2024 End: 08-22-2024 Bamboo flowsheet Darleen Sinclair MD Work Phone: [facility] Start: 08-22-2024 End: 08-22-2024 Bamboo flowsheet Darleen Sinclair MD Work Phone: [facility] Start: 08-22-2024 End: 08-22-2024 Office outpatient visit 25 minutes Darleen Sinclair MD Work Phone: [facility] Comment on above: Abnormal thyroid fun ction test (Primary Dx); H/O gastric bypass; 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); Vitamin D deficiency Start: 08-22-2024 End: 08-22-2024 ambulatory DARLEEN SINCLAIR Not Available Start: 08-20-2024 End: 08-20-2024 Telemedicine consultation with patient Shelly Hernandez APRN.WORKER'S COMPENSATION CLAIMS EXAMINER Work Phone: [facility] Start: 08-20-2024 End: 08-20-2024 ambulatory Shelly Hernandez APRN.WORKER'S COMPENSATION CLAIMS EXAMINER Work Phone: [facility] Comment on above: 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) (Primary Dx) Start: 08-18-2024 End: 08-23-2024 ambulatory Shelly Hernandez MOLDING FITTER.WORKER'S COMPENSATION CLAIMS EXAMINER Work Phone: [facility]ocr[facility]ology [facility] Comment on above: Ultrasound Start: 08-17-2024 End: 08-17-2024 ambulatory Amanda Ford Facility:[facility] Start: 08-16-2024 End: 08-16-2024 Telephone encounter Shelly Hernandez APRN.WORKER'S COMPENSATION CLAIMS EXAMINER Work Phone: [facility] Comment on above: positive for pregnan cy Start: 08-15-2024 End: 08-15-2024 Telephone encounter Shelly Hernandez APRN.WORKER'S COMPENSATION CLAIMS EXAMINER Work Phone: [facility] Comment on above: Patient Question Start: 08-15-2024 End: 08-15-2024 ambulatory Shelly Hernandez Facility:[facility] Start: 08-13-2024 End: 08-13-2024 ambulatory Shelly Hernandez Facility:[facility] Start: 07-31-2024 End: 07-31-2024 ambulatory SELF Facility:[facility] Start: 07-31-2024 End: 07-31-2024 Patient encounter procedure Andrology Information Services Assistant Work Phone: [facility] Comment on above: Procreative manageme nt (Primary Dx) Start: 07-30-2024 End: 07-30-2024 Telephone encounter Shelly Hernandez APRN.WORKER'S COMPENSATION CLAIMS EXAMINER Work Phone: [facility]ocrinology [facility] Comment on above: Patient Question Start: 07-25-2024 End: 07-25-2024 ambulatory SELF Facility:[facility] Start: 07-07-2024 End: 07-07-2024 [facility] Start: 07-07-2024 End: 07-07-2024 Patient encounter procedure Andrology Information Services Assistant Work Phone: [facility] Comment on above: Procreative manageme nt (Primary Dx) Encounter for artifi cial insemination (Primary Dx) Start: 07-06-2024 End: 07-06-2024 Telephone encounter Shelly Hernandez APRN.WORKER'S COMPENSATION CLAIMS EXAMINER Work Phone: [facility] Comment on above: Patient calling back /re iui 07/07 unsure Start: 07-05-2024 End: 07-06-2024 Telephone encounter Ignacio Guy MD Work Phone: [facility] Comment on above: re iui this wknd/has cervical polyp question Start: 07-04-2024 End: 07-04-2024 Telephone encounter Shelly Hernandez APRN.WORKER'S COMPENSATION CLAIMS EXAMINER Work Phone: [facility] Comment on above: Treatment Planning Start: 07-04-2024 End: 07-11-2024 ambulatory Shelly Hernandez APRN.WORKER'S COMPENSATION CLAIMS EXAMINER Work Phone: [facility] Comment on above: Ovulating Start: 07-04-2024 End: 07-04-2024 Patient encounter procedure Us Tech 3 [facility] Beac Work Phone: [facility]ology [facility] Start: 07-02-2024 End: 07-02-2024 ambulatory SHELLY HERNANDEZ Facility:[facility] Start: 06-29-2024 End: 06-29-2024 ambulatory SHELLY HERNANDEZ Facility:[facility] Start: 06-23-2024 End: 06-29-2024 ambulatory Shelly Hernandez MOLDING FITTER.WORKER'S COMPENSATION CLAIMS EXAMINER Work Phone: [facility] Comment on above: Negative t est and possible hematoma Start: 06-09-2024 End: 06-09-2024 ambulatory IGNACIO LAWSONHARISH Facility:[facility] Start: 06-09-2024 End: 06-09-2024 Patient encounter procedure Andrology Information Services Assistant Work Phone: [facility] Comment on above: Procreative manageme nt (Primary Dx) Female infertility ( Primary Dx) Start: 06-05-2024 End: 06-07-2024 ambulatory Shelly Keene David MOLDING FITTER.WORKER'S COMPENSATION CLAIMS EXAMINER Work Phone: [facility] Start: 06-05-2024 End: 06-07-2024 Patient encounter procedure Shelly Hernandez MOLDING FITTER.WORKER'S COMPENSATION CLAIMS EXAMINER Work Phone: [facility] Comment on above: IUI appointment Start: 05-22-2024 End: 05-23-2024 ambulatory Shelly Mcraekey MOLDING FITTER.WORKER'S COMPENSATION CLAIMS EXAMINER Work Phone: [facility] Comment on above: Progesterone results Start: 05-21-2024 End: 05-21-2024 ambulatory Shellymiriam Hernandez Facility:[facility] Start: 05-18-2024 End: 05-18-2024 ambulatory SHELLY HERNANDEZ Facility:[facility] Start: 05-09-2024 End: 05-09-2024 ambulatory Shelly Hernandez MOLDING FITTER.WORKER'S COMPENSATION CLAIMS EXAMINER Work Phone: [facility] Comment on above: Reproductive mgmt, 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) Start: 05-09-2024 End: 05-09-2024 Telemedicine consultation with patient Shelly Hernandez MOLDING FITTER.WORKER'S COMPENSATION CLAIMS EXAMINER Work Phone: [facility] Start: 05-06-2024 End: 05-07-2024 ambulatory Shelly Hernandez MOLDING FITTER.WORKER'S COMPENSATION CLAIMS EXAMINER Work Phone: [facility] Comment on above: Consent form Start: 05-02-2024 End: 05-02-2024 Telemedicine consultation with patient Saúl Enriquez PhD Work Phone: [facility] Comment on above: Bipolar 1 disorder ( Multi) (Primary Dx); Infertility counseling Start: 05-02-2024 End: 05-02-2024 ambulatory [facility] Nikole [facility] Ambulatory Start: 04-26-2024 End: 04-26-2024 ambulatory [facility] Work Phone: Start: 04-26-2024 End: 04-26-2024 Patient encounter procedure [facility] Work Phone: Start: 04-24-2024 End: 04-24-2024 ambulatory SHELLY DAVID Facility:[facility] Start: 04-23-2024 End: 04-23-2024 ambulatory [facility] Work Phone: Start: 04-23-2024 End: 04-23-2024 Patient encounter procedure [facility] Work Phone: Start: 04-02-2024 End: 04-03-2024 ambulatory Shelly Keene David MOLDING FITTER.WORKER'S COMPENSATION CLAIMS EXAMINER Work Phone: [facility] Comment on above: Genetic testing Start: 03-09-2024 End: 03-09-2024 ambulatory Shelly Keene David MOLDING FITTER.WORKER'S COMPENSATION CLAIMS EXAMINER Work Phone: [facility] Comment on above: Reproductive mgmt, 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); Special screening examination for infectious diseases; Encounter for other genetic testing of female for procreative management Start: 03-09-2024 End: 03-09-2024 Telemedicine consultation with patient Shelly Hernandez MOLDING FITTER.WORKER'S COMPENSATION CLAIMS EXAMINER Work Phone: [facility] Start: 02-29-2024 End: 02-29-2024 ambulatory SHELLY HERNANDEZ Facility:[facility] Start: 02-28-2024 End: 02-28-2024 ambulatory IGNACIO GUY Facility:[facility] Start: 02-28-2024 End: 02-28-2024 Patient encounter procedure Ignacio Guy MD Work Phone: [facility] Comment on above: Encounter for male f actor 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 (Primary Dx) Start: 02-27-2024 End: 02-27-2024 ambulatory Amanda Ford APRN Work Phone: [facility] Work Phone: Start: 02-27-2024 End: 02-27-2024 Patient encounter procedure Amanda Ford APRN Work Phone: [facility] Work Phone: Start: 02-20-2024 Non-patient / Non-visit [facility] Work Phone: Start: 02-20-2024 End: [...] Department Unsolicited Start: 01-17-2024 End: 01-17-2024 ambulatory MOLDING FITTER Amanda Ford Work Phone: [facility] Work Phone: Start: 01-17-2024 End: 01-17-2024 Patient encounter procedure MOLDING FITTER Amanda Logan Work Phone: [facility] Work Phone: Start: 01-10-2024 Non-patient / Non-visit MOLDING FITTERTanja Ford Work Phone: [facility] Work Phone: Start: 12-20-2023 End: 12-20-2023 ambulatory MOLDING FITTERTanja MittalAmanda Logan Work Phone: [facility] Work Phone: Start: 12-20-2023 End: 12-20-2023 Patient encounter procedure MELY Mittalnihina Ford Work Phone: [facility] Work Phone: Start: 12-09-2023 ambulatory Romeo Santana [facility] Start: 12-07-2023 Non-patient / Non-visit MOLDING FITTER Amandahina Ford Work Phone: [facility] Phys[facility] Work Phone: Start: 12-07-2023 End: 12-07-2023 Admission to same day surgery center MOLDING FITTERTanja Ford Work Phone: [facility] [place] Start: 12-07-2023 End: 12-07-2023 ambulatory MOLDING FITTERTanja Ford Work Phone: [facility] Work Phone: Start: 12-01-2023 End: 12-01-2023 ambulatory MELY Ford Work Phone: [facility] Work Phone: Start: 12-01-2023 End: 12-01-2023 Patient encounter procedure MOLDING FITTERTanja Ford Work Phone: [facility] Work Phone: Start: 11-28-2023 End: 11-28-2023 ambulatory MOLDING FITTERTanja Ponceacher Work Phone: [facility] Work Phone: Start: 11-28-2023 End: 11-28-2023 Patient encounter procedure MOLDING FITTERTanja Ford Work Phone: [facility] Work Phone: Start: 11-02-2023 End: 11-02-2023 Emergency department patient visit Amanda Ford Facility:[facility] Start: 11-01-2023 End: 11-01-2023 ambulatory MOLDING FITTERTanja Ford Work Phone: [facility] Work Phone: Start: 11-01-2023 End: 11-01-2023 Patient encounter procedure MOLDING FITTERTanja Ford Work Phone: [facility] Work Phone: Start: 10-26-2023 End: 10-26-2023 ambulatory MOLDING FITTERTanja Ford Work Phone: [facility] Work Phone: Start: 10-26-2023 End: 10-26-2023 Patient encounter procedure MOLDING FITTER Amanda Hahnr Work Phone: [facility] Work Phone: Start: 10-13-2023 End: 10-13-2023 ambulatory [facility] Work Phone: Start: 10-13-2023 End: 10-13-2023 Patient encounter procedure [facility] Work Phone: Start: 09-15-2023 Non-patient / Non-visit [facility] [employer] Work Phone: Start: 06-08-2023 End: 06-08-2023 ambulatory [facility] Work Phone: Start: 06-08-2023 End: 06-08-2023 Patient encounter procedure [facility] Physician [facility] Work Phone: Start: 05-17-2023 End: 05-17-2023 ambulatory Amanda Logan Other [employer] Other Start: 05-17-2023 Office outpatient visit 15 minutes Romeo Santana [facility] Start: 05-17-2023 Telephone encounter Amanda Janet her [facility] Start: 05-17-2023 End: 05-17-2023 Patient encounter procedure [facility] Physician [facility]- Start: 04-28-2023 End: 04-28-2023 ambulatory Amanda Logan Other [employer] Other Start: 04-28-2023 Telephone encounter Amanda Janet her [facility] Start: 04-22-2023 End: 04-22-2023 ambulatory Amanda Rosarioacher Other [employer] Other Start: 04-22-2023 Telephone encounter Amanda Shethfelecia her [facility] Start: 04-19-2023 End: 04-19-2023 ambulatory Amanda Rosarioacher Other [employer] Other Start: 04-19-2023 Telephone encounter Amanda Janet her [facility] [address] [facility] Start: 04-14-2023 End: 04-14-2023 ambulatory Amanda Ponceacher Other [employer] Other Start: 04-14-2023 Telephone encounter Amanda Gonzales her [facility] Start: 03-17-2023 End: 03-17-2023 ambulatory Romeo Santana Other [facility] Other Start: 03-17-2023 Telephone encounter Romeo Millerley [facility] Start: 02-07-2023 End: 02-07-2023 ambulatory Amanda Rosarioacher Other [facility] Other Start: 02-07-2023 Office outpatient visit 15 minutes Petr Alireza [facility] Start: 02-07-2023 Telephone encounter Amanda Gonzales her [facility] Start: 01-27-2023 End: 01-27-2023 ambulatory Amanda Rosarioacher Other [employer] Other Start: 01-27-2023 Telephone encounter Amanda Gonzales her [facility] [place] Start: 01-19-2023 End: 01-19-2023 ambulatory Amanda Merylrbacher Other [facility] Other Start: 01-19-2023 Telephone encounter Amanda Gonzales her [facility] Start: 01-13-2023 End: 01-13-2023 ambulatory Amanda Merylrbacher Other [facility] Other Start: 01-13-2023 Telephone encounter Amanda Gonzales her [facility] Start: 01-10-2023 End: 01-10-2023 ambulatory Amanda Merylrbacher Other [facility] Other Start: 01-10-2023 Telephone encounter Amanda Gonzales her [facility] Start: 01-06-2023 End: 01-06-2023 ambulatory Amanda Merylrbacher Other [facility] Other Start: 01-06-2023 Telephone encounter Amanda Shethfelecia her [facility] Start: 12-27-2022 End: 12-27-2022 ambulatory Petr Lay Other [facility] Other Start: 12-27-2022 Office outpatient visit 15 minutes Petr Lay [facility] Start: 11-10-2022 End: 11-10-2022 ambulatory Amanda Jovanir Other [facility] Other Start: 11-10-2022 Telephone encounter Amanda Gonzales her [facility] Start: 10-21-2022 End: 10-21-2022 ambulatory Amanda Rosarioacher Other [facility] Other Start: 10-21-2022 Telephone encounter Amanda Shethfelecia her [facility] [place] Start: 10-11-2022 End: 10-11-2022 ambulatory Petr Lay Other [facility] Other Start: 10-11-2022 Office consultation new/estab patient 40 min Petr Lay [facility] Start: 09-30-2022 End: 09-30-2022 ambulatory Amanda Hahnr Other [facility] Other Start: 09-30-2022 Office outpatient visit 15 minutes Amanda Ponceacher [facility] [place] Start: 08-25-2022 End: 08-25-2022 ambulatory Amanda Ponceacher Other [facility] Other Start: 08-25-2022 Office outpatient visit 15 minutes Amandarufino Ponceacher [facility] [place] Start: 08-20-2022 End: 08-20-2022 ambulatory Amanda Rosarioacher Other [facility] Other Start: 08-20-2022 Office outpatient visit 15 minutes Amanda Logan [facility] Start: 07-19-2022 End: 07-19-2022 ambulatory Amanda Logan Other [facility] Other Start: 07-19-2022 Telephone encounter Amanda Shethsarahsari her [facility] Start: 07-08-2022 End: 07-08-2022 ambulatory Amanad Logan Other [facility] Other Start: 07-08-2022 Telephone encounter Amanda Gonzales her [facility] Start: 06-23-2022 End: 06-23-2022 ambulatory MOLDING FITTER Amanda Logan Work Phone: [facility] Work Phone: Start: 06-23-2022 End: 06-23-2022 Patient encounter procedure MOLDING FITTER Amandahina Ford Work Phone: [facility] [place] Work Phone: Start: 06-17-2022 End: 06-17-2022 ambulatory Amanda Logan Other [facility] Other Start: 06-17-2022 Telephone encounter Amanda Gonzales her [employer] Start: 06-16-2022 End: 06-16-2022 ambulatory MOLDING FITTER Amandahina Ford Work Phone: [facility] Work Phone: Start: 06-16-2022 End: 06-16-2022 Patient encounter procedure MOLDING FITTER Amanda Logan Work Phone: [facility] [place] Work Phone: Start: 06-10-2022 End: 06-11-2022 Evaluation and management of inpatient MD Robin Appiah Work Phone: [facility] Work Phone: Start: 06-10-2022 observation encounter MD Estrada Appiah Work Phone: [facility] Work Phone: Start: 06-09-2022 End: 06-09-2022 ambulatory MD Robin Appiah Work Phone: [facility] Work Phone: Start: 06-09-2022 End: 06-09-2022 Patient encounter procedure MD Robin Appiah Work Phone: [facility] [place] Work Phone: Start: 04-26-2022 End: 04-26-2022 ambulatory Amanda Ford Other [facility] [employer] Other Start: 04-26-2022 Telephone encounter Amanda Gonzales her [facility] Start: 04-23-2022 End: 04-23-2022 ambulatory Amanda Ford Other [facility] [employer] Other Start: 04-23-2022 Telephone encounter Amanda Gonzales her [facility] Start: 04-21-2022 End: 04-21-2022 Departed Referred MD Robin Appiah Work Phone: [facility] [place] Work Phone: Start: 04-21-2022 End: 04-21-2022 ambulatory MD Robin Appiah Work Phone: [facility] Work Phone: Start: 04-21-2022 Office outpatient visit 15 minutes Amanda Ford [facility] Start: 04-20-2022 End: 04-20-2022 ambulatory Amanda Ford Other [facility] Other Start: 04-20-2022 Telephone encounter Amanda Gonzales her [facility] [place] Start: 04-13-2022 End: 04-13-2022 ambulatory Amanda Shethstefanyderidre Other [facility] Other Start: 04-13-2022 Telephone encounter Amanda Gonzales her [employer] Start: 04-10-2022 End: 04-10-2022 Emergency department patient visit MD Robin Appiah Work Phone: [facility] Work Phone: Start: 04-08-2022 End: 04-08-2022 Emergency department patient visit MD Robin Appiah Work Phone: [facility] Work Phone: Start: 03-30-2022 End: 03-30-2022 ambulatory Amanda Jovanideirdre Other [employer] Other Start: 03-30-2022 Telephone encounter Amanda Gonzales her [facility] Start: 03-23-2022 End: 03-23-2022 Patient encounter procedure MD Robin Appiah Work Phone: [facility] [place] Start: 03-23-2022 End: 03-23-2022 ambulatory Amanda Logan Other [employer] Other Start: 03-23-2022 Office outpatient visit 15 minutes Amanda Logan [facility] Start: 03-17-2022 End: 03-17-2022 ambulatory Amanda Jovanir Other [facility] Other Start: 03-17-2022 Telephone encounter Amanda Shethfelecia her [facility] Start: 02-08-2022 End: 02-08-2022 ambulatory Amanda Logan Other [employer] Other Start: 02-08-2022 Office outpatient visit 25 minutes Amanda Ford [facility] Start: 09-01-2021 End: 09-01-2021 Patient encounter procedure Samir Thompson [facility] Start: 08-25-2021 End: 08-25-2021 Patient encounter procedure Samir Thompson [facility] Start: 08-06-2021 End: 08-06-2021 Patient encounter procedure Samir Thompson [facility] Start: 07-24-2021 End: 07-24-2021 Patient encounter procedure Samir Thompson [facility] Start: 07-23-2021 End: 07-23-2021 ambulatory Amanda Logan Other [facility] Other Start: 07-23-2021 Telephone encounter Amanda Shethfelecia her [employer] Start: 07-16-2021 End: 07-16-2021 ambulatory Amanda Logan Other [facility] Other Start: 07-16-2021 Office outpatient ne w 30 minutes Amanda Ford [facility] Start: 03-30-2021 End: 03-30-2021 Emergency department patient visit ROBIN APPIAH [facility] Start: 05-06-2020 End: 05-08-2020 ambulatory RASHARD Gilmore [facility] Start: 05-06-2020 End: 05-08-2020 Subsequent hospital visit by physician Rashard Olivera Work Phone: [facility] Comment on above: Post-op pain (Primar y Dx) Start: 05-02-2020 End: 05-03-2020 Patient encounter procedure MACKENZIE Gregory BRITO [facility] Start: 05-02-2020 End: 05-02-2020 Subsequent hospital visit by physician Michael Covid Screening Schedule [facility] Covid Screening Comment on above: Pre-op testing (Prim cj Dx) Start: 04-22-2020 End: 04-25-2020 ambulatory [facility] Start: 04-22-2020 End: 04-27-2020 ambulatory [facility] Start: 04-22-2020 End: 04-24-2020 Subsequent hospital visit by physician Lam C-Arm 2 [facility] Radiology Comment on above: Arrived Start: 04-22-2020 End: 04-26-2020 Subsequent hospital visit by physician Martita Pat 2 [facility] Pre-Admit Testing Procedures Date Procedure Procedure Detail Performing Clinician Start: 12-02-2024 Urnls dip stick/tabl et rgnt auto w/o microscopy Eduardo Cruz DO Work Phone: Start: 11-20-2024 RECURRENT VAGINITIS (HTRX) Les Juan [...] 10-18-2024 Bacteria identificat ion test Amanda Ford APRN Work Phone: Start: 10-18-2024 Determination of kendrick wth of fungi Amanda Ford APRN Work Phone: Start: 10-18-2024 Trichomonas vaginali s detection Amanda Ford APRN Work Phone: Start: 10-18-2024 Urine culture Amanda Ford APRN Work Phone: Start: 10-18-2024 Diagnostic ultrasoun d of gravid uterus Amanda Ford APRN Work Phone: Start: 10-16-2024 UNLISTED LAB TEST Not I n System Ref Prov Start: 10-10-2024 BOX TEST Les martin DO Work Phone: Start: 09-26-2024 Antibody rubella Not In System Ref Prov Start: 09-26-2024 Antibody screen Marylin Lindquist MD Work Phone: Start: 09-26-2024 Hemoglobin glycosyla [...] after 1st trimest / gestation Shelly Hernandez MOLDING FITTER.WORKER'S COMPENSATION CLAIMS EXAMINER Work Phone: Start: 08-28-2024 Us preg uterus after 1st trimest / gestation Shelly Hernandez MOLDING FITTER.WORKER'S COMPENSATION CLAIMS EXAMINER Work Phone: Start: 07-04-2024 Us pelvic nonobstetr ic real-time image complete Ignacio Guy MD Work Phone: Start: 04-02-2024 Antibody screen SHELLY HERNANDEZ Comment on above: Order Comment: Speci men Type: BLOOD SPECIMEN Ordering Facility: [facility] Address: [address] [place] [address] Performed By: #### T SPN #### [facility] CLIA [id number] [place] [address] [facility] Start: 02-20-2024 IGP,APTIMA HPV,AGE GDLN Les Monsivaiso DO Work Phone: Start: 02-20-2024 Microscopic observat [...] Blood count complete auto&auto difrntl wbc Mukesh Montez Work Phone: Start: 05-07-2020 Radex esophagus [...] Start: 04-22-2020 Assay of nicotine Rashad Gilmore [employer] Work Phone: Start: 04-22-2020 Basic metabolic pane l calcium total Rashard Olivera Work Phone: Start: 04-22-2020 Blood count complete automated Rashard Olivera Work Phone: Start: 04-22-2020 Prothrombin time Narendra chip Deirdre Olivera Work Phone: Start: 04-22-2020 Thromboplastin [...] RSV Vaccine (1 - 1-dose 75+ series) [facility] Start: 2045 Zoster Vaccines (1 of 2) Zoster Vaccines (1 of 2) [facility] Start: 12-25-2032 DTaP,Tdap and Td Vaccines (2 - Td or Tdap) DTaP,Tdap and Td Vaccines (2 - Td or Tdap) [facility] Start: 12-25-2032 DTaP/Tdap/Td Vaccines (2 - Td or Tdap) DTaP/Tdap/Td Vaccines (2 - Td or Tdap) [facility] Start: 12-25-2032 Urine microalbumin profile DTaP,Tdap,Td Vaccine (2 - Td or Tdap) [facility] Start: 02-19-2027 Screening for malignant neoplasm of cervix [facility] Start: 12-05-2025 Adult BMI Screening Adult BMI Screening [facility] Start: 12-05-2025 Tobacco Screening Tobacco Screening [facility] Start: 12-05-2025 End: 12-05-2025 US MFM with or without consult US MFM with or without consult Imaging Routine Previous gastric bypass affecting , antepartum Hypothyroidism affecting in second trimester 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 ([facility]) Obesity affecting in second trimester, unspecified obesity type Encounter for supervision of resulting from assisted reproductive technology, antepartum Expected: 12/05/2025 (Approximate), Expires: 12/05/2025 [employer] Work Phone: Comment on above: Expected: 12/05/2025 (Approximate), Expi res: 12/05/2025 Start: 08-21-2025 End: 08-21-2025 Patient encounter procedure [facility] Start: 02-20-2025 End: 02-20-2025 Patient encounter procedure [facility] Start: 01-03-2025 End: 01-03-2025 Patient encounter procedure 01/03/2025 2:15 PM EDT Appointment [facility] [place] [address] [facility] [address] [place] [address] [facility] [place] Start: 12-19-2024 End: 12-19-2024 Patient encounter procedure 12/19/2024 10:00 AM EDT Routine [facility] Zainab HERNANDEZ [address] [place] [id number] Jojo Ames PA [address] [place] [address] [facility] Start: 12-17-2024 Influenza vaccination [facility] Start: 12-05-2024 End: 12-05-2024 Patient encounter procedure [facility] Start: 12-04-2024 End: 12-04-2024 Professional / ancillary services management 12/04/2024 8:30 AM EDT Ancillary Procedure GUDELIA HERNANDEZ [address] [place] [place] [phone] [facility] Start: 12-02-2024 Hospital admission [facility] Start: 12-02-2024 [facility] Start: 11-30-2024 Bacteria identified in Urine by Culture Urine Culture [facility] Start: 11-30-2024 End: 11-30-2024 Urine culture [facility] Start: 11-20-2024 End: 12-21-2024 Alpha fetoprotein, maternal Alpha fetoprotein, maternal Lab Routine Need for maternal serum alpha-protein (MSAFP) screening ([facility]) Expected: 11/20/2024 (Approximate), Expires: 12/21/2024 [facility] Comment on above: Expected: 11/20/2024 (Approximate), Expi res: 12/21/2024 Start: 11-20-2024 End: 02-20-2025 US for US OB 14+ weeks anatomy scan Imaging Routine Screening, , for anatomic survey ([facility]) Expected: 11/20/2024 (Approximate), Expires: 02/20/2025 [facility] Comment on above: Expected: 11/20/2024 (Approximate), Expi res: 02/20/2025 Start: 11-20-2024 End: 11-20-2024 Patient encounter procedure [facility] Comment on above: Arrived Start: 10-22-2024 End: 10-22-2024 Patient encounter procedure 10/22/2024 11:20 AM EDT Routine [facility] [address] [place] [place] [phone] Les Martinez DO [address] [place] [address] [facility] Start: 10-18-2024 Bacteria identified in Urine by Culture Urine Culture [facility] Start: 10-18-2024 Genital Culture Genital Culture [facility] Start: 10-18-2024 Urine culture [facility] Start: 10-18-2024 [facility] Start: 09-20-2024 End: 09-20-2025 ABO/Rh ABO/Rh Lab Routine Missed menses , unspecified gestational age Expected: 09/20/2024 (Approximate), Expires: 09/20/2025 [facility] Comment on above: Expected: 09/20/2024 (Approximate), Expi res: 09/20/2025 Start: 09-20-2024 End: 09-20-2025 Blood type and Indirect antibody screen panel - Blood Type and screen Lab Routine Missed menses , unspecified gestational age Expected: 09/20/2024 (Approximate), Expires: 09/20/2025 [facility] Work Phone: Comment on above: Expected: 09/20/2024 (Approximate), Expi res: 09/20/2025 Start: 09-20-2024 End: 09-20-2025 Drugs of abuse panel - Urine by Screen method Rapid drug screen, urine Lab Routine , unspecified gestational age Encounter for supervision of normal first in first trimester Expected: 09/20/2024 (Approximate), Expires: 09/20/2025 [facility] Comment on above: Expected: 09/20/2024 (Approximate), Expi res: 09/20/2025 Start: 09-13-2024 End: 09-13-2024 ambulatory 09/13/2024 2:30 PM EDT Initial [facility] [address] [place] [place] [phone] [facility] Start: 09-13-2024 End: 09-13-2024 Professional / ancillary services management 09/13/2024 2:00 PM EDT Ancillary Procedure [facility] [address] [place] [address] [facility] Start: 09-03-2024 End: 09-03-2024 Nursing evaluation of patient and report [facility]inology [facility] Comment on above: scan ob scan, non ivf Start: 08-22-2024 End: 08-22-2025 25-hydroxyvitamin D3 [Mass/volume] in Serum or Plasma Vitamin D 25 hydroxy Lab Routine H/O gastric bypass Vitamin D deficiency Expected: 08/22/2024 (Approximate), Expires: 08/22/2025 [facility] Healthcare Comment on above: Expected: 08/22/2024 (Approximate), Expi res: 08/22/2025 Start: 08-22-2024 End: 08-22-2025 Cobalamin (Vitamin B12) [Mass/volume] in Serum or Plasma Vitamin B12 Lab Routine H/O gastric bypass Expected: 08/22/2024 (Approximate), Expires: 08/22/2025 [facility] Healthcare Comment on above: Expected: 08/22/2024 (Approximate), Expi res: 08/22/2025 Start: 08-22-2024 End: 08-22-2025 Thiamine (aka Vitamin B1) Thiamine (aka Vitamin B1) Lab Routine H/O gastric bypass Expected: 08/22/2024 (Approximate), Expires: 08/22/2025 [facility] Healthcare Comment on above: Expected: 08/22/2024 (Approximate), Expi res: 08/22/2025 Start: 08-22-2024 End: 08-22-2025 Thyrotropin [Units/volume] in Serum or Plasma TSH Lab Routine Abnormal thyroid function test Expected: 08/22/2024 (Approximate), Expires: 08/22/2025 [facility] Healthcare Comment on above: Expected: 08/22/2024 (Approximate), Expi res: 08/22/2025 Start: 08-22-2024 End: 08-22-2025 Thyroxine (T4) free [Mass/volume] in Serum or Plasma T4, free Lab Routine Abnormal thyroid function test Expected: 08/22/2024 (Approximate), Expires: 08/22/2025 [facility] Comment on above: Expected: 08/22/2024 (Approximate), Expi res: 08/22/2025 Start: 08-22-2024 End: 08-22-2025 Triiodothyronine (T3) Free [Mass/volume] in Serum or Plasma T3, free Lab Routine Abnormal thyroid function test Expected: 08/22/2024 (Approximate), Expires: 08/22/2025 [facility] Work Phone: Comment on above: Expected: 08/22/2024 (Approximate), Expi res: 08/22/2025 Start: 08-22-2024 End: 08-22-2024 Patient encounter procedure 08/22/2024 10:00 AM EDT Office Visit [facility] [address] [place] [phone] Darleen Sinclair MD [address] [place] [address] Arrived [facility] Comment on above: Arrived Start: 08-20-2024 End: 08-20-2025 OBSTETRIC ULTRASOUND WHI OBSTETRIC ULTRASOUND WHI Anc Imaging Routine 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) Expected: 08/20/2024, Expires: 08/20/2025 [facility] Work Phone: Comment on above: Expected: 08/20/2024, Expires: Start: 08-20-2024 End: 08-20-2024 ambulatory 08/20/2024 8:30 AM EDT [facility]ocrinology Infertility [address] [place] [address] Shelly Hernandez APRN.WORKER'S COMPENSATION CLAIMS EXAMINER [address] [place] [address] preg appt [facility]roductive Endocrinology Infertility Comment on above: preg appt Start: 07-07-2024 End: 07-07-2024 Patient encounter procedure [facility] Comment on above: donor thaw iui d Start: 05-09-2024 End: 05-09-2024 ambulatory 05/09/2024 8:00 AM 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 Expected: 03/11/2024, Expires: 06/10/2024 [facility] Comment on above: Expected: 03/11/2024, Expires: Start: 03-11-2024 End: 06-10-2024 CARRIER SCREEN, EXPANDED CARRIER SCREEN, EXPANDED Lab Routine Encounter for other genetic testing of female for procreative management Expected: 03/11/2024, Expires: 06/10/2024 [facility] Comment on above: Expected: 03/11/2024, Expires: Start: 03-11-2024 End: 06-10-2024 Chlamydia trachomatis+Neisseria gonorrhoeae DNA [Presence] in Unspecified specimen by AC with probe detection GONORRHEA/CHLAMYDIA NAAT Lab Routine Special screening examination for infectious diseases Expected: 03/11/2024, Expires: 06/10/2024 [facility] Comment on above: Expected: 03/11/2024, Expires: Start: 03-11-2024 End: 06-10-2024 Cytomegalovirus IgG Ab [Units/volume] in Serum or Plasma CMV IGG ANTIBODY BL Lab Routine Special screening examination for infectious diseases Expected: 03/11/2024, Expires: 06/10/2024 [facility] Comment on above: Expected: 03/11/2024, Expires: Start: 03-11-2024 End: 06-10-2024 Cytomegalovirus IgM Ab [Units/volume] in Serum or Plasma CMV IGM AB Lab Routine Special screening examination for infectious diseases Expected: 03/11/2024, Expires: 06/10/2024 [facility] Comment on above: Expected: 03/11/2024, Expires: Start: 03-11-2024 End: 06-10-2024 Hemoglobin A1c in Blood HEMOGLOBIN A1C Lab Routine Reproductive mgmt, 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 Expected: 03/11/2024, Expires: 06/10/2024 [facility] Comment on above: Expected: 03/11/2024, Expires: Start: 03-11-2024 End: 06-10-2024 Hepatitis B virus core Ab [Presence] in Serum HEPATITIS B CORE ANTIBODY TOTAL Lab Routine Special screening examination for infectious diseases Expected: 03/11/2024, Expires: 06/10/2024 [facility] Comment on above: Expected: 03/11/2024, Expires: Start: 03-11-2024 End: 06-10-2024 Hepatitis B virus surface Ag [Presence] in Serum HEPATITIS B SURFACE ANTIGEN Lab Routine Special screening examination for infectious diseases Expected: 03/11/2024, Expires: 06/10/2024 [facility] Comment on above: Expected: 03/11/2024, Expires: Start: 03-11-2024 End: 06-10-2024 Hepatitis C virus Ab [Presence] in Serum HEPATITIS C ANTIBODY IA WITH CONFIRMATION Lab Routine Special screening examination for infectious diseases Expected: 03/11/2024, Expires: 06/10/2024 [facility] Comment on above: Expected: 03/11/2024, Expires: Start: 03-11-2024 End: 06-10-2024 HIV 1+2 Ab [Presence] in Serum or Plasma by Immunoassay HIV 1/2 COMBO WITH REFLEX TO DIFFERENTIATION Lab Routine Special screening examination for infectious diseases Expected: 03/11/2024, Expires: 06/10/2024 [facility] Comment on above: Expected: 03/11/2024, Expires: Start: 03-11-2024 End: 06-10-2024 RUBELLA IGG ANTIBODY RUBELLA IGG ANTIBODY Lab Routine Special screening examination for infectious diseases Expected: 03/11/2024, Expires: 06/10/2024 [facility] Comment on above: Expected: 03/11/2024, Expires: Start: 03-11-2024 End: 06-10-2024 SYPHILIS TREPONEMAL W/REFLEX SYPHILIS TREPONEMAL W/REFLEX Lab Routine Special screening examination for infectious diseases Expected: 03/11/2024, Expires: 06/10/2024 [facility] Comment on above: Expected: 03/11/2024, Expires: Start: 03-11-2024 End: 06-10-2024 TYPE + SCREEN TYPE + SCREEN Blood Bank Routine Reproductive mgmt, 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 Expected: 03/11/2024, Expires: 06/10/2024 [facility] Comment on above: Expected: 03/11/2024, Expires: Start: 03-11-2024 End: 06-10-2024 VARICELLA ZOSTER IGG VARICELLA ZOSTER IGG Lab Routine Special screening examination for infectious diseases Expected: 03/11/2024, Expires: 06/10/2024 [facility] Work Phone: Comment on above: Expected: 03/11/2024, Expires: Start: 03-09-2024 End: 03-09-2024 ambulatory 03/09/2024 10:00 AM EST [facility] [address] [place] [address] Shelly Hernandez APRN.WORKER'S COMPENSATION CLAIMS EXAMINER [address] [place] [address] [facility] Comment on above: Donor sperm teach Start: 02-20-2024 End: 02-20-2024 Patient encounter procedure 02/20/2024 2:50 PM EST Office Visit [facility] [address] [place] [id number] Les Martinez DO [address] [place] [address] Arrived [facility] Comment on above: Arrived Start: 12-18-2023 Covid-19 Vaccine ( season) Covid-19 Vaccine ( season) [facility] Start: 12-18-2023 Covid-19 Vaccine ( season) Covid-19 Vaccine () [facility] Start: 12-18-2023 Influenza vaccination Influenza Vaccine (#1) [facility] Start: 12-07-2023 End: 12-07-2023 [facility] Start: 06-15-2022 [facility] Start: 06-14-2022 [facility] Start: 06-13-2022 [facility] Start: 06-12-2022 [facility] Start: 06-11-2022 End: 06-11-2022 [facility] Start: 06-10-2022 Hospital admission [facility] Start: 06-10-2022 [facility] Start: 06-10-2022 [facility] Start: 06-09-2022 [facility] Start: 04-21-2022 Bacteria identified in Urine by Culture Urine Culture [facility] Start: 04-10-2022 Bacteria identified in Urine by Culture Urine Culture [facility] Start: 05-16-2020 End: 05-16-2020 Office Visit 05/16/2020 Office Visit Bariatrics Rashard Olivera, [address] [facility] [address] [place] [id number] [facility] Invasive Bariatric Surg Start: 05-06-2020 End: 05-06-2020 Hospital Encounter [facility] Comment on above: XI LAPAROSCOPIC ROBOTIC GASTRIC BYPASS R OUX-EN-Y, LIVER BIOPSY, EGD- GI UNIT SCHEDULED. Start: 05-02-2020 End: 05-01-2021 COVID-19 COVID-19 Lab Routine Pre-op testing Expected: 05/02/2020, Expires: 05/01/2021 [facility] NORMA BUTLER Comment on above: Expected: 05/02/2020, Expires: Start: 05-02-2020 End: 05-02-2020 Office Visit Camille Linton Invasive Bariatric Surg Start: 01-11-2020 TSH Qn TSH testing [place], [place] Start: 12-18-2019 Influenza vaccination Flu vaccine (#1) [place], [place] Start: 2016 Screening for malignant neoplasm of cervix [facility] Start: 2014 DTaP,Tdap and Td Vaccines (1 - Tdap) DTaP,Tdap and Td Vaccines (1 - Tdap) [facility] Start: 2014 DTaP/Tdap/Td vaccine (1 - Tdap) DTaP/Tdap/Td vaccine (1 - Tdap) [place], [place] Start: 2014 Hepatitis B Vaccine (1 of 3 - 19+ 3-dose series) Hepatitis B Vaccine (1 of 3 - 19+ 3-dose series) [facility] Start: 2014 Hepatitis B Vaccines (1 of 3 - 19+ 3-dose series) Hepatitis B Vaccines (1 of 3 - 19+ 3-dose series) [facility] Start: 2014 Urine microalbumin profile DTaP,Tdap,Td Vaccine (1 - Tdap) [facility] Start: 2013 Adult BMI Follow Up Plan Adult BMI Follow Up Plan [facility] Start: 2013 Adult BMI Screening Adult BMI Screening [facility] Start: 2013 Anxiety Screening Anxiety Screening [facility] Start: 2013 Depression Screening Depression Screening [facility] Start: 2013 Hepatitis C screening Hepatitis C Screening [facility] Start: 2013 HIV screening HIV Screening [facility] Start: 2010 HIV screening HIV screen [place], [place] Start: 2008 Varicella vaccination Varicella Vaccines (1 of 2 - 13+ 2-dose series) [facility] Start: 2007 Depression Screening Depression Screening [facility] Start: 2007 Tobacco Screening Tobacco Screening [facility] Start: 2006 HPV vaccine (1 - 2-dose series) HPV vaccine (1 - 2-dose series) [place] Start: 1996 MMR Vaccines (1 of 1 - Standard series) MMR Vaccines (1 of 1 - Standard series) [facility] Start: 1996 Varicella vaccine (1 of 2 - 2-dose childhood series) Varicella vaccine (1 of 2 - 2-dose childhood series) [place] Start: 1995 Hepatitis C screening Hepatitis C screen [place] Start: 1995 HIV screening HIV Screening [facility] Start: 1995 Lipid panel Lipid Panel [facility] Start: 1995 Yearly Adult Physical Yearly Adult Physical [facility] aPTT in Platelet poo r plasma by Coagulation assay [facility] Bacteria identified in Genital specimen by Aerobe culture [facility] Bacteria identified in Urine by Culture Urine culture Microbiology Routine Missed menses Ordered: 09/20/2024 [facility] Comment on above: Ordered: 09/20/2024 Calcitriol [Mass/vol ume] in Serum or Plasma [facility] CBC W Auto Different ial panel - Blood CBC and differential Lab Routine Missed menses , unspecified gestational age Ordered: 09/20/2024 [facility] Comment on above: Ordered: 09/20/2024 CHLAMYDIA TRACHOMATI S (GENITO/STI) CHLAMYDIA TRACHOMATIS (GENITO/STI) Lab Routine Exposure to STD Ordered: 11/20/2024 [facility] Comment on above: Ordered: 11/20/2024 Continuous pulse oximetry Pulse oximetry, continuous Respiratory Care Routine Every 4hr until discontinued starting 05/06/2020 [place], [place] Comment on above: Every 4hr until discontinued starting CT Abdomen and Pelvi s WO and W contrast IV [facility] Cytology Cervical or vaginal smear or scraping study Pap Smear Pathology and Cytology Routine Well woman exam with routine gynecological exam Ordered: 02/20/2024 [facility] Work Phone: Comment on above: Ordered: 02/20/2024 Electromyography [facility] F5 gene mutations fo und [Identifier] in Blood or Tissue by Molecular genetics method Nominal [facility] Factor VIII: C assay [facility] Glucose measurement estimated from glycated hemoglobin [facility] Hemoglobin A1c/Hemoglobin.total in Blood [facility] Hemoglobin A1c/Hemoglobin.total in Blood Hemoglobin A1c Lab Routine Missed menses , unspecified gestational age Ordered: 09/20/2024 [facility] Comment on above: Ordered: 09/20/2024 Hepatitis B virus priest rface Ag [Presence] in Serum or Plasma by Immunoassay Hepatitis B surface antigen Lab Routine Missed menses , unspecified gestational age Ordered: 09/20/2024 [facility] Comment on above: Ordered: 09/20/2024 Hepatitis C virus Ab [Presence] in Serum or Plasma by Immunoassay Hepatitis C antibody Lab Routine Missed menses , unspecified gestational age Ordered: 09/20/2024 [facility] Comment on above: Ordered: 09/20/2024 HIV-1/HIV-2 antigen/antibody combination immunoassay HIV-1 and HIV-2 antibodies Lab Routine Missed menses , unspecified gestational age Ordered: 09/20/2024 [facility] Comment on above: Ordered: 09/20/2024 INR in Platelet poor plasma by Coagulation assay [facility] Mullerian inhibiting substance [Mass/volume] in Serum or Plasma [facility] Nebulizer therapy HHN Treatment Respiratory Care Routine TID until discontinued starting 05/06/2020 [facility] [place] Comment on above: TID until discontinued starting 05/06/19 21 Neisseria gonorrhoea e DNA [Presence] in Unspecified specimen by AC with probe detection Neisseria gonorrhea DNA probe, direct Lab Routine Exposure to STD Ordered: 11/20/2024 [facility] Comment on above: Ordered: 11/20/2024 Oxygen therapy [[facility] Data Set] Initiate Oxygen Therapy Protocol Respiratory Care Routine Daily until discontinued starting 05/06/2020 [place] Comment on above: Daily until discontinued starting 2020 [facility] Work Phone: Patient referral [facility] Work Phone: Reagin Ab [Presence] in Serum by RPR RPR Lab Routine Missed menses , unspecified gestational age Ordered: 09/20/2024 [facility] Comment on above: Ordered: 09/20/2024 Rubella antibody, IgG Rubella an tibody, IgG Lab Routine Missed menses , unspecified gestational age Ordered: 09/20/2024 [facility] Comment on above: Ordered: 09/20/2024 Spirometry panel Incentive marti metry Respiratory Care Routine Every 2hr while awake until discontinued starting 05/06/2020 [facility] [place] Comment on above: Every 2hr while awake until discontinued starting 05/06/2020 SURESWAB(R) ADVANCED VAGINITIS PLUS, TMA SURESWAB(R) ADVANCED VAGINITIS PLUS, TMA Pathology and Cytology Routine Exposure to STD Ordered: 11/20/2024 [facility] Work Phone: Comment on above: Ordered: 11/20/2024 Surgical Pathology Surgical Path ology Lab Routine Release Upon Ordering for 1 Occurrences starting 05/06/2020 [facility] [place] Comment on above: Release Upon Ordering for 1 Occurrences starting 05/06/2020 End: 11-20-2025 Thyrotropin [Units/volume] in Serum or Plasma TSH Lab Routine Thyroid disease every 4 weeks for 6 Occurrences starting 11/20/2024 until 11/20/2025 [facility] Comment on above: every 4 weeks for 6 Occurrences starting 11/20/2024 until 11/20/2025 von Willebrand facto r (vWf) Ag [Units/volume] in Platelet poor plasma [facility] von Willebrand facto r (vWf) multimers in Platelet poor plasma by Immunoblot [facility] von Willebrand facto r (vWf) ristocetin cofactor actual/normal in Platelet poor plasma by Platelet aggregation [facility] Immunizations Immunization Date Immunization Notes Care Provider Fa cility 12-25-2022 tetanus toxoid, reduced diphtheria toxoid, and acellular pertussis vaccine, adsorbed Darleen Sinclair MD Work Phone: [facility] 08-19-2020 COVID-19 mRNA-1273 (Moderna) MELY Fodr Work Phone: [facility] 07-22-2020 COVID-19 mRNA-1273 (Moderna) MELY Ford Work Phone: [facility] Payers Date Payer Category Payer Self-pay [id number] 2022 Medicaid [id number] 2022 Medicaid [id number] 2020 Unknown [id number] 2015 Unknown [id number] .[id number] 1995 Unknown [id number] 2.16.840.1.526967.3.579.2.176 1995 Unknown [id number] 2.16.840.1.313427.3.579.2.175 1995 Unknown [id number] 2.16.840.1.009038.3.579.2.175 1995 Unknown [id number] 2.16.840.1.447197.3.579.2.175 1995 Unknown [id number] 2.16.840.1.196115.3.579.2.175 1995 Unknown [id number] 2.16.840.1.717843.3.579.2.124 4 1995 Unknown [id number] 2.16.840.1.392794.3.579.2.718 1995 Unknown [id number] 2.16.840.1.215878.3.579.2.718 1995 Unknown [id number] 2.16.840.1.896377.3.579.2.718 1995 Unknown [id number] 2.16.840.1.873301.3.579.2.718 1995 Unknown [id number] 2.16.840.1.955702.3.579.2.718 1995 Unknown [id number] 2.16.840.1.675680.3.579.2.718 1995 Unknown [id number] 2.16.840.1.937698.3.579.2.718 1995 Unknown [id number] 2.16.840.1.870314.3.579.2.128 6 1995 Unknown [id number] 2.16.840.1.836244.3.579.2.128 6 1995 Unknown [id number] 2.16840.1.370888.3.579.2.125 9 1995 Unknown [id number] 2.16840.1.628374.3.579.2.125 9 1995 Unknown [id number] 2.16840.1.625970.3.579.2.125 9 1995 Unknown [id number] 2.16840.1.248457.3.579.2.125 9 1995 Unknown [id number] 2.840.1.635865.3.579.2.125 9 1995 Unknown [id number] 2.840.1.077141.3.579.2.125 9 1995 Unknown [id number] 2.16840.1.395196.3.579.2.125 9 Private Health Insurance [facility] [id number] Unknown [id number] Unknown [id number] 2.840.1.347878.3.579.2.531 Unknown [id number] 2.16840.1.409471.3.579.2.531 Unknown [id number] 2.16840.1.611773.3.579.2.531 Social History Date Type Detail Facility Start: 04-22-2020 End: 06-08-2023 Tobacco smoking status [facility] Never smoker [place] Start: 04-22-2020 End: 12-05-2024 Tobacco use and exposure Never used [facility] Start: 04-22-2020 End: 05-02-2020 Alcohol intake Current non-drinker of alcohol (finding) [facility] Start: 1995 Sex Assigned At Not on file [facility] Exposure to SARS-CoV-2 (event) Not sure [employer] [employer] Tobacco smoking status Never [facility] Start: 05-20-2020 End: 11-28-2023 Sex Assigned At Female [facility] Other Start: 1995 Sex Assigned At Female [facility] Start: 06-10-2022 Tobacco smoking status RIIS Current some day smoker [facility] Start: 04-18-2023 End: 12-07-2023 Tobacco smoking status RIIS Smoker (finding) [facility] Start: 11-28-2023 End: 10-26-2024 Tobacco smoking status RIIS Smokes tobacco daily [facility] Start: 04-18-2023 History of tobacco use Cigarette Smoker [facility] Start: 05-20-2020 End: 11-28-2023 Cigarettes smoked current (pack per day) - Reported 0.5 [facility] Start: 11-28-2023 End: 12-05-2024 Alcoholic beverage intake Ex-drinker (finding) [facility] Start: 01-10-2023 Alcohol Comment caffeine: 1-2 cups per day tea [facility] Start: 01-19-2023 Gender identity Identifies as female gender (finding) [facility] Start: 11-21-2014 End: 02-27-2024 Sex Female (finding) [facility] Tobacco smoking status RIIS Tobacco smoking consumption unknown [facility] Start: 08-01-2023 [facility] Start: 10-18-2024 End: 12-05-2024 Tobacco smoking status RIIS Ex-smoker (finding) [facility] NEGATED: Highlighted row [facility] Medical Equipment Procedure Code Equipment Code [...] FDA Start: 10-15-2019 Tendon/ligament bone anchor, non-bioabsorbable [id number] FDA Start: 12-07-2023 Tendon/ligament bone anchor, non-bioabsorbable [id number] FDA Start: 12-07-2023 Tendon/ligament bone anchor, non-bioabsorbable [id number] FDA Start: 12-07-2023 Tendon/ligament bone anchor, non-bioabsorbable [id number] FDA Start: 12-07-2023 Goals Date Patient Goal Desired Activity /State Personal health goal Functional Status Date Assessment Result Facility 06-11-2022 Functional status Patient at Baseline [facility] Work Phone: 06-10-2022 Functional status Patient at Baseline [facility] Work Phone: Mental Status Date Assessment Result Facility 06-11-2022 Cognitive function Cognitive Sta tus Patient at Baseline [facility] Work Phone: 06-10-2022 Cognitive function Cognitive Sta tus Patient at Baseline [facility] Work Phone: Clinical Notes 07-16-2021 to 12-05-2024 Latricia Lindquist MD - 12/05/2024 2:00 PM Zachariah Shen RN - 12/05/2024 2:00 PM Valentina Valverde LPN - 11/20/2024 8:40 AM Cedric Duenas NP - 10/22/2024 11:20 AM EDTPatient Instructions Note Date & Type Note Facility 12-05-2024 History of Present illness Narrative Images from the original note were not included. [facility] Consult Note Reason For Consult: HPI: Jaz Sanders is a 29 y.o. at 20w1d with [...] cystic fibrosis, The patient has screened negative for cystic fibrosis History of gastric sleeve in 2020, lost about 250 lbs Hypothyroidism on Synthroid last TSH 1.7 on 11/20/24. History of elevated TPO. She has had significant improvement of the thyroid since the weight loss Bipolar disorder on seroquel lamictal and zoloft.She follows with the behavioral health up in [place] History of migraines. Has been getting some [...] (attention deficit disorder) Anemia Bipolar 1 disorder ([facility]) Disease of thyroid gland GERD (gastroesophageal reflux disease) Pee's thyroiditis Hx of iron deficiency anemia [place] product of in vitro fertilization (IVF) Ovarian [...] mouth in the morning., Disp: , Rfl: levothyroxine (SYNTHROID, LEVOTHROID) 50 MCG tablet, Take 1 tablet (50 mcg total) by mouth in the morning., Disp: , Rfl: [id number] acid ( 19) 29 mg iron- 1 [...] nutrients into duodenum and proximal tested and fairly changes the microbiome. Complications associated with following bariatric surgery include but not limited to bowel obstruction, Band slippage, gastric ulcers and staple line strictures. Micronutrient supplementation may include Vitamins B1, B6, B12, D, and K, zinc, biotin, iron and calcium citrate. We discussed that given the theoretical risk of dumping syndrome with a 50 g glucose challenge test alternative testing for gestational diabetes should be considered [...] deficiency in post bariatric bypass surgical patients is Wernicke encephalopathy (encephalopathy, ocular motor dysfunction, and gait ataxia). Patients are recommended 50 mg of thiamine once to twice daily following bariatric surgery. Vitamin B12 deficiency results in pernicious anemia. Chronic vitamin B12 deficiency can also result in peripheral neuropathy, which may not be reversible. Typically the body has 12-18 months storage of vitamin B12, thus vitamin B12 deficiencies commonly identified 2 years following bariatric surgery. Her current BMI is 35 risks of obesity in the reviewed. Micronutrient Dosing Recommendations: Calcium: recommend 1000-1200mg daily; if deficient, recommend 5972-8785 mg PO daily in divided doses Vitamin D: recommend 800IU during and ; if deficient, recommend 3000-6000IU of D3 daily Vitamin B1: recommend 50mg daily; if deficient, recommend 100-250mg monthly IM injects or 100mg TID PO until symptoms resolve Vitamin B12: recommend 35-100mcg daily PO; if deficient, recommend 1000mcg daily PO until level normalize Folate: recommend 800mcg-1000mcg daily PO (do not exceed 1mg daily); if deficient, recommend 1000mcg daily PO until levels normalize Iron: recommend 45-60mg of elemental iron daily from all sources; if deficient, recommend 150-300mg PO BID to TID OR IV iron 4. [...] to maintain TSH values less than 2.5 mU/L. After delivery, the dose of the thyroxine should be reduced to pre- levels and TSH measured 6 to 8 weeks later. She has been compliant with her Synthroid medication. Last TSH was within goal. 5. 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 ([facility]) I reviewed with the patient that stability [...] levels of her lamotrigine checked in the late 2nd and 3rd trimester in order to ensure [...] obesity or inappropriately high weight gain during and gestational diabetes mellitus. I recommended an early 1 hour GTT to screen for this and an appointment with a dietitian. I also reviewed with the patient that patients taking atypical antipsychotics can sometimes have neonates with adaptation syndrome. The metal roaster should be made aware at the time of delivery of the mother's [...] . Well designed studies on long-term neurodevelopmental outcomes are lacking. She vocalized understanding. Recent concerns from the FDA reviewed and current ACOG /S MFM guidelines discussed. The patient accepts risks with the above medications and desires to continue them. She should closely follow-up with her psychiatrist. 6. headache in second trimester - magnesium oxide (MAGOX) 400 mg tablet; Take 1 tablet (400 mg total) by mouth in the morning and 1 tablet (400 mg total) before bedtime. Dispense: 120 [...] deficiencies every trimester: CBC, ferritin, B12, calcium and Vitamin D Alternative testing for gestational diabetes should [...] me if you have any concerns. Latricia Lindquist MD, FACOG (she/hers) Maternal- Medicine [facility] [address] 1[address] [place] [address] This document was created with [employer] technology. Though I make every effort to review the dictation as it is transcribed, on occasion the spoken word can be misinterpreted by the technology leading to inappropriate words, phrases, or sentences. This note is addressed to the requesting provider as a consultation for clinical guidance. Specific medical abbreviations are occasionally used and those are generally approved by the [place]?Board of?Obstetrics and?Gynecology?as well as?Marilee s abbreviations. The above plan of care was based solely on the diagnoses for which a consultation was requested. ?More frequent testing may be indicated based on her other medical/obstetrical conditions. The management of other or medical conditions is beyond the scope of requested consultation and will continue to be followed by the primary senior geotechnical engineer or primary care provider. Note to patient: The 21st Century Cures Act makes medical notes like these available to patients in the interest of transparency. However, be advised this is a medical document. It is intended as peer to peer communication. It is written in medical language and may contain abbreviations or verbiage that are unfamiliar. It may appear blunt or direct. Medical documents are intended to carry relevant information, facts as evident, and the clinical opinion of the practitioner. Headache/epigastric pain/blurry vision/swelling? Patient reports daily moderate headaches, nothing helps with the pain. Reports swelling severe swelling in feet last week but took 2 days off work and swelling improved. Patient went to the hospital to get evaluated for high BP. BP was never elevated in hospital and she was discharged home. Cramping/contractions? No Spotting/vaginal bleeding? Reports bright red bleeding with clots on Tuesday night. Patient went to triage and was checked and cervix was closed and was told everything looked okay. Patient discharged home, she is still getting brown old blood. [...] CF Have you been seen here at [facility] in a previous ? NA Recent ER visits or hospitalizations? See notes above Bring blood sugar log or meter with you today? (Please bring them with you for every visit at [facility]) NA Flu vaccine (Feb-June)? NA Any concerns that you would like me to mention to the provider today? Questions about glucose testing and her having gastric bypass surgery [facility] History of Present illness Narrative Reason for Appointment: Patient ID: [...] nursing note reviewed. Exam conducted with a accounting reconciliation clerk present. Vitals: Estimated body mass index is [...] gonorrhea DNA probe, direct 3. Second trimester ([facility]) Z34.92 POCT urinalysis dipstick manually resulted 4. 18 weeks gestation of ([facility]) Z3A.18 5. Need for maternal serum alpha-protein (MSAFP) screening ([facility]) Z36.1 Alpha fetoprotein, maternal Alpha fetoprotein, maternal 6. Screening, , for anatomic survey ([facility]) Z36.89 US OB 14+ weeks anatomy [...] Les Martinez DO documented in this encounter [facility] 10-22-2024 History of Present illness Narrative Reason for Appointment: Patient ID: [...] nursing note reviewed. Exam conducted with a accounting reconciliation clerk present. Vitals: Estimated body mass index is 31.24 kg/m as calculated from the following: Height as of 08/22/24: 5' 11 . Weight as of this encounter: 224 lb. BP: 110/62 No LMP recorded. Patient is . ASSESSMENT & PLAN ICD-10-CM 1. 13 weeks gestation of ([facility]) Z3A.13 POCT urinalysis dipstick manually resulted 2. Second trimester ([facility]) Z34.92 POCT urinalysis dipstick manually resulted 3. Thyroid disease E07.9 4. H/O gastric sleeve Z90.3 5. H/O iron deficiency anemia Z86.2 6. resulting from in vitro fertilization in first trimester ([facility]) O09.811 Return OB: Patient presents today for [...] of gastric sleeve will make referral to MFM. Documented by Mima Duenas NP on behalf of: Les Martinez DO documented in this encounter [facility] 10-18-2024 Radiology Diagnostic study note [facility] Main [place] [address] [place] [address] Ultrasound Report Signed Patient: Jaz Sanders MR#: [id number] : 1995 Acct:[id number] Age/Sex: 29 / F ADM Date: 5 Loc: ER Room: Type: [facility] ER Attending Dr: Ordering Provider: Kassidy [...] Jr., D.ORenae 10/18/2024 2:21 PM [facility]: Natalie Haji Transcribed By: MAITE 10/18/24 1421 Dictated By: Sravan Dickinson Jr, DO 10/18/24 1419 Signed By: 10/18/24 1421 [facility] 09-20-2024 History of Present illness Narrative Reason for Appointment: Patient ID: [...] screen, urine; Future Nurse Note: Patient declined Tiff at this time. Patient is an IVF from [facility]. OB Intake: Patient presents today for first OB visit. Patients history has been reviewed in great detail including any potential risks. Patient signed consent forms and patient desires testing in both trimesters. Patient currently has no complaints and has been advised to drink 6-8 glasses of water a day, eat no raw or undercooked meat, and stay away from [facility]. Patient has also been advised to [...] Marsha Asif MA documented in this encounter [facility] 09-05-2024 Note HNO ID: [id number] Author: SHELLY HERNANDEZ APRN.WORKER'S COMPENSATION CLAIMS EXAMINER Service: ? Author Type: Nurse Practitioner Type: [...] 3. Cycle Day: Last menstrual period: 07/19/2024 [place] Protocol: UNIVERSAL PROTOCOL / SAFETY CHECKLIST Procedure [...] DATE: September 05, 2024 TIME: 10:45 PM [facility] 09-03-2024 History of Present illness Narrative Jaz Sanders here today for [...] 2024 5:39 PM documented in this encounter [facility] 09-03-2024 Note HNO ID: [id number] Author: CHARISSE WEAVER APRN.CNP Service: ? Author [...] Plan Move on to OB Charisse Weaver APRN.WORKER'S COMPENSATION CLAIMS EXAMINER September 03, 2024 5:39 PM [facility] 08-30-2024 Note HNO ID: [id number] Author: MIKEY TORRES MD Service: ? Author Type: Physician Type: Progress Notes Filed: 08/30/2024 16:36 Note Text: Viable ratliff IUP Size equal Date. Plan: patient to follow up with her ob for care. Stacy Banuelos MD [facility] 08-30-2024 History of Present illness Narrative Viable ratliff IUP Size equal [...] Shelly Hernandez APRN.CNP documented in this encounter [facility] 08-28-2024 Note HNO ID: [id number] Author: SHELLY HERNANDEZ APRN.CNP Service: ? Author [...] Positive Positive hCG levels: 08/13 - 63.6 4/ - 160.6 5/2 - 362.7 Dating: Currently 6w0d based off of IUI date. By Ultrasound, measuring 5w6d FHR: 100 Plan: repeat scan next week as scheduled Shelly Hernandez APRN.CNP [facility] 08-24-2024 Telephone encounter Note spoke with Jaz, [...] schedule the patient for the following- Location: [facility] Provider: nurse Visit type: scan Reason for visit/appointment notes: scan Date: 08/28 Time (requested): 1110 If slot is full, please schedule the closest open slot. Call to patient needed: no [facility] 08-24-2024 Miscellaneous Notes spoke with [...] Jaz Sanders called today. : 1995 (home) [phone] (cell) Reason for call: pt called today informing the nurse she has been experiencing pain of level 4 from 1-10. Pt has been experiencing pain for 2 day. 5 weeks today. The patients preferred pharmacy has been captured for this encounter? Angella Morillo Soft [employer] Supervisor documented in this encounter [facility] 08-24-2024 Telephone encounter Note See 08/23/24 LIBBY aWrd RN August 24, 2024 1:58 PM [facility] 08-24-2024 Miscellaneous Notes See 08/23/24 TE Marianna Ward RN August 24, 2024 1:58 PM Pt would like a call back documented in this encounter [facility] 08-24-2024 Telephone encounter Note Pt would like a call back [facility] 08-23-2024 Telephone encounter Note Name: Jaz Sanders called today. : 1995 (home) [phone] (cell) Reason for call: pt called today informing the nurse she has been experiencing pain of level 4 from 1-10. Pt has been experiencing pain for 2 day. 5 weeks today. The patients preferred pharmacy has been captured for this encounter? Angella Morillo Soft Sugar Supervisor [facility] 08-23-2024 Telephone encounter Note See 08/20 Distance health visit Marianna Ward RN August 23, 2024 8:53 AM [facility] 08-23-2024 Miscellaneous Notes See 08/20 Distance health visit Marianna Ward RN August 23, 2024 8:53 AM documented in this encounter [facility] 08-22-2024 History of Present illness Narrative Jaz Sanders is a 29 y.o. female Darleen Sinclair MD presents with chief complaint of Thyroid Problem and Follow-up (1.5 YRS ) HPI: History of Present Illness The patient is a 29-year-old female who presents for a follow-up visit. She was last seen in 03/2023. She continues her regimen of levothyroxine 50 mcg daily, administered in the acid splicer on an empty stomach. There have been [...] year (around 08/22/2025). documented in this encounter [facility] 08-20-2024 Note HNO ID: [id number] Author: SHELLY HERNANDEZ APRN.JARROD Service: ? Author [...] visit. Either the patient or their legal product representative has been informed of the risks [...] from assisted reproductive technology in first trimester ([facility]) O09.811 OBSTETRIC ULTRASOUND WHI Plan: further labwork needed: no scan scheduled: 09/03 medications to discontinue: patient to discuss status with her providers Schedule with OB: 09/13 Shelly Hernandez APRN.WORKER'S COMPENSATION CLAIMS EXAMINER August 20, 2024 8:33 AM Please schedule the patient for the following- Location: [place] Provider: nurse Visit type: Reason for visit/appointment notes: scan Date: 09/03 Time (requested): 1040 If slot is full, please schedule the closest open slot. Call to patient needed: no I spent a total of 30 minutes on the date of the service which included preparing to see the patient, [id number] patient care, completing clinical documentation, obtaining and/or [...] grammatical and typographical errors missed in proofreading. [facility] 08-20-2024 History of Present illness Narrative Images from the original note [...] visit. Either the patient or their legal product representative has been informed of the risks [...] from assisted reproductive technology in first trimester ([facility]) O09.811 OBSTETRIC ULTRASOUND I Plan: further labwork needed: no scan scheduled: 09/03 medications to discontinue: patient to discuss status with her providers Schedule with OB: 09/13 Shelly Hernandez APRN.CNP August 20, 2024 8:33 AM Please schedule the patient for the following- Location: [place] Provider: nurse Visit type: Reason for visit/appointment notes: scan Date: 09/03 Time (requested): 1040 If slot is full, please schedule the closest open slot. Call to patient needed: no I spent a total of 30 minutes on the date of the service which included preparing to see the patient, [id number] patient care, completing clinical documentation, obtaining and/or [...] missed in proofreading. documented in this encounter [facility] 08-16-2024 Telephone encounter Note Called patient back to phone number listed in Loaded Pocket-no answer. Lm for patient to look out for Mychart message. Daniel Hanna APRN.CNP August 16, 2024 5:15 PM [facility] 08-16-2024 Miscellaneous Notes Called patient back to phone number listed in Loaded Pocket-no answer. Lm for patient to look out for Mychart message. Daniel Hanna APRN.CNP August 16, 2024 5:15 PM Name: Jaz Sanders called today. : 1995 (home) [phone] (cell) Reason for call: pt called that she got positive test, she has been having having cramping since last night , it happens every hours for couple minutes. The patients preferred pharmacy has been captured for this encounter? yes Angella Morillo Soft Sugar Supervisor documented in this encounter [facility] 08-16-2024 Telephone encounter Note Name: Jaz Sanders called today. : 1995 (home) [phone] (cell) Reason for call: pt called that she got positive test, she has been having having cramping since last night , it happens every hours for couple minutes. The patients preferred pharmacy has been captured for this encounter? yes Angella Morillo Soft Sugar Supervisor [facility] 08-15-2024 Telephone encounter Note Pt is preg and wants to know if she can take benadryl due to her having hives [facility] 08-15-2024 Miscellaneous Notes Pt is preg and wants to know if she can take benadryl due to her having hives documented in this encounter [facility] 07-31-2024 Note HNO ID: [id number] Author: DOMINGUEZ BARRY, ? Service: ? Author Type: Fortune Teller Type: Progress Notes Filed: 09/05/2024 22:45 Note Text: IUI Cryobio Donor # [id number] Pre: frozen washed specimen Post: 82 M/ml, 67% Insem # 27.5 million [facility] 07-31-2024 Note HNO ID: [id number] Author: DOMINGUEZ BARRY, ? Service: ? Author Type: Fortune Teller Type: Progress Notes Filed: 07/31/2024 15:26 Note Text: Thaw for IUI. Dominguez Barry [facility] 07-31-2024 History of Present illness Narrative Thaw for IUI. Dominguez Barry documented in this encounter [facility] 07-31-2024 Note HNO ID: [id number] Author: DOMINGUEZ BARRY, ? Service: ? Author Type: Fortune Teller Type: Progress Notes Filed: 09/05/2024 22:45 Note Text: IUI specimen released to provider Dominguez Barry July 31, 2024 3:24 PM [facility] 07-31-2024 Note HNO ID: [id number] Author: MUSTAPHA TELLO MA Service: ? Author Type: Industrial Real Estate Agent Type: Progress Notes Filed: 07/31/2024 15:12 Note Text: Patient verified by full name and date of . Jaz Sanders is here today for an IUI. LMP: 07/19/2024 Natural cycle IUI Timed With: Ovulation Predictor Kit , Date: 07/30/2024 Metal Can Inspector offered: Patient declines Mustapha Tello MA July 31, 2024 3:12 PM [facility] 07-30-2024 Telephone encounter Note patient's OPK today was dark but not positive Plan: test again tomorrow. if darker, schedule IUI on Tuesday if park interpreter than today, schedule IUI the same day Shelly Hernandez APRN.CNP July 30, 2024 6:00 PM [facility] 07-30-2024 Miscellaneous Notes patient's OPK today was dark but not positive Plan: test again tomorrow. if darker, schedule IUI on Tuesday if park interpreter than today, schedule IUI the same day Shelly Hernandez APRN.CNP July 30, 2024 6:00 PM N- ivf Pt has questions regarding IUI documented in this encounter [facility] 07-30-2024 Telephone encounter Note N- ivf Pt has questions regarding IUI [facility] 07-08-2024 Note HNO ID: [id number] Author: NICHELLE GONZALEZ, ? Service: ? Author Type: Fortune Teller Type: Progress Notes Filed: 07/19/2024 07:50 Note Text: IUI Cryobio #[id number] Washed frozen specimen Post: 31 m/ml, 77% Insem#: 10.8 million [facility] 07-08-2024 History of Present illness Narrative IUI Cryobio #[id number] Washed frozen specimen Post: 31 m/ml, 77% Insem#: 10.8 million IUI specimen released to provider Nichelle Gonzalez July 07, 2024 10:10 AM documented in this encounter [facility] 07-07-2024 Note HNO ID: [id number] Author: NICHELLE GONZALEZ, ? Service: ? Author Type: Fortune Teller Type: Progress Notes Filed: 07/19/2024 07:50 Note Text: IUI specimen released to provider Nichelle Gonzalez July 07, 2024 10:10 AM [facility] 07-07-2024 Note HNO ID: [id number] Author: MIKEY TORRES MD Service: ? Author [...] Cycle Day: 14 Last menstrual period: 06/24/2024 [place] Protocol: UNIVERSAL PROTOCOL / SAFETY CHECKLIST Procedure [...] primary surgeon/proceduralist with assistance. Stacy Banuelos MD [facility] 07-07-2024 Procedure note WHI JAMEL IUI PROCEDURE NOTE Date: 07/07/2024 Primary Proceduralist: Nakia Duran MD Consents and Labels Consent Signed: Informed Consent obtained and on the chart Labels Verified With Patient: Yes Indications: Jaz Sanders, is a 29 year old No obstetric history on file. female here today for intrauterine insemination. IUI # 2. Cycle Day: 14 Last menstrual period: 06/24/2024 [place] Protocol: UNIVERSAL PROTOCOL / SAFETY CHECKLIST Procedure [...] primary surgeon/proceduralist with assistance. Stacy Banuelos MD [facility] 07-07-2024 Procedure note WHI [...] Cycle Day: 14 Last menstrual period: 06/24/2024 [place] Protocol: UNIVERSAL PROTOCOL / SAFETY CHECKLIST Procedure [...] Stacy Banuelos MD documented in this encounter [facility] 07-07-2024 Note HNO ID: [id number] Author: NICHELLE GONZALEZ, ? Service: ? Author Type: Fortune Teller Type: Progress Notes Filed: 07/07/2024 09:41 Note Text: Thaw for IUI Nichelle Gonzalez [facility] 07-07-2024 History of Present illness Narrative Thaw for IUI Nichelle Gonzalez documented in this encounter [facility] 07-06-2024 Telephone encounter Note Called the pt back. Pt had an US done 07/04/24--Possible small 4 mm intracervical canal polyp. No other abnormal findings. Advised to move on with IUI tomorrow. FYI: Dr. Guy and Silvia, PUBLIC RELATIONS PLAYER. Please let me know if any different instructions. Becki Isaacs PA-C July 06, 2024 3:26 PM [facility] 07-06-2024 Miscellaneous Notes Called the pt back. Pt had an US done 07/04/24--Possible small 4 mm intracervical canal polyp. No other abnormal findings. Advised to move on with IUI tomorrow. FYI: Dr. Guy and Silvia, PUBLIC RELATIONS PLAYER. Please let me know if any different instructions. Becki Isaacs PA-C July 06, 2024 3:26 PM Patient states she is calling back unsure about if she is okay to proceed with iui tomorrow. Please call patient. documented in this encounter [facility] 07-06-2024 Telephone encounter Note Patient states she is calling back unsure about if she is okay to proceed with iui tomorrow. Please call patient. [facility] 07-06-2024 Telephone encounter Note See other TE for 07/04 Marianna Ward RN July 06, 2024 11:17 AM [facility] 07-06-2024 Miscellaneous Notes See other TE for 07/04 Marianna Ward RN July 06, 2024 11:17 AM On day 11 now, inquiring about if okay to proceed with iui with cervical polyp. Patient believes it will be tomorr or Tuesday for iui- inquiring if polyp needs to be removed first. documented in this encounter [facility] 07-05-2024 Telephone encounter Note On day 11 now, inquiring about if okay to proceed with iui with cervical polyp. Patient believes it will be tomorr or Tuesday for iui- inquiring if polyp needs to be removed first. [facility] 07-04-2024 Telephone encounter Note Spoke with Jaz regarding multiple questions. #1 - ultrasound results LMP 2, natural cycle, LH surge 06/08 -IUI 06/09 - cervix bled during IUI, Dr. Guy recommended ultrasound before getting another IUI. Ultrasound done today. Cervical polyp seen. Dr. Guy - please advise if this needs to be removed before doing another IUI. LMP 3/, OPK getting a faint line but not yet positive. Patient is worried about ovulation. She is on cycle day 10 today, largest follicle on ultrasound was 15.8mm. Reassured patient that she is growing a follicle and I'm not surprised OPK is not yet positive. She is predicted to ovulate on Tuesday or Tuesday. Shelly Hernandez APRN.CNP July 04, 2024 7:30 PM [facility] 07-04-2024 Miscellaneous Notes Spoke with [...] 2024 7:30 PM documented in this encounter [facility] 07-04-2024 Note HNO ID: [id number] Author: IGNACIO GUY MD Service: ? Author Type: Physician Type: Progress Notes Filed: 07/04/2024 16:27 Note Text: 1 [facility] 07-04-2024 History of Present illness Narrative 1 documented in this encounter [facility] 06-09-2024 Note HNO ID: [id number] Author: IGNACIO GUY MD Service: ? Author [...] Cycle Day: 13 Last menstrual period: 05/28/2024 [place] Protocol: UNIVERSAL PROTOCOL / SAFETY CHECKLIST Procedure [...] was discussed with the patient or authorized product representative. The patient or authorized product representative has agreed to proceed with the sensitive examination. (Sensitive examination includes inspection and/or palpation of the breasts, pelvis, prostate and anorectal regions) Patient declined accounting reconciliation clerk. Vidhi Sheldon MD IUI IUI Date: 06/09/24 [...] stopped. [facility] if not with this IUI prior pt proceeding with another attmept at IUI. Ignacio Guy MD June 09, 2024 12:30 PM SIGNATURE: Vidhi Sheldon MD PATIENT NAME: Jaz Sanders DATE: June 09, 2024 TIME: 12:01 PM [facility] 06-09-2024 Procedure note WHI JAMEL IUI PROCEDURE NOTE Date: 06/09/2024 Primary Proceduralist: Vidhi Sheldon MD Consents and Labels Consent Signed: Informed Consent obtained and on the chart Labels Verified With Patient: Yes Indications: Jaz Sanders, is a 29 year old No obstetric history on file. female here today for intrauterine insemination. IUI # 1. Cycle Day: 13 Last menstrual period: 05/28/2024 [place] Protocol: UNIVERSAL PROTOCOL / SAFETY CHECKLIST Procedure [...] was discussed with the patient or authorized product representative. The patient or authorized product representative has agreed to proceed with the sensitive examination. (Sensitive examination includes inspection and/or palpation of the breasts, pelvis, prostate and anorectal regions) Patient declined accounting reconciliation clerk. Vidhi Sheldon MD IUI IUI Date: 06/09/24 [...] stopped. Will get pelivc scan [facility] if not with this IUI prior pt proceeding with another attmept at IUI. Ignacio Guy MD June 09, 2024 12:30 PM SIGNATURE: Vidhi Sheldon MD PATIENT NAME: Jaz Sanders DATE: June 09, 2024 TIME: 12:01 PM [facility] Work Phone: 06-09-2024 Procedure note [...] Cycle Day: 13 Last menstrual period: 05/28/2024 [place] Protocol: UNIVERSAL PROTOCOL / SAFETY CHECKLIST Procedure [...] was discussed with the patient or authorized product representative. The patient or authorized product representative has agreed to proceed with the sensitive examination. (Sensitive examination includes inspection and/or palpation of the breasts, pelvis, prostate and anorectal regions) Patient declined accounting reconciliation clerk. Vidhi Sheldon MD IUI IUI Date: 06/09/24 [...] stopped. Will get pelivc scan [facility] if not with this IUI prior pt proceeding with another attmept at IUI. Ignacio Guy MD June 09, 2024 12:30 PM SIGNATURE: Vidhi Sheldon MD PATIENT NAME: Jaz Sanders DATE: June 09, 2024 TIME: 12:01 PM documented in this encounter [facility] 06-09-2024 Note HNO ID: [id number] Author: NICHELLE GONZALEZ, ? Service: ? Author Type: Fortune Teller Type: Progress Notes Filed: 06/09/2024 12:30 Note Text: IUI Cryobio #: [id number] Washed frozen sample Post: 42 m/ml, 74% Insem#: 15.5 million [facility] 06-09-2024 History of Present illness Narrative IUI Cryobio #: [id number] Washed frozen sample Post: 42 m/ml, 74% Insem#: 15.5 million IUI specimen released to provider Nichelle Gonzalez June 09, 2024 11:24 AM documented in this encounter [facility] 06-09-2024 Note HNO ID: [id number] Author: NICHELLE GONZALEZ, ? Service: ? Author Type: Fortune Teller Type: Progress Notes Filed: 06/09/2024 11:48 Note Text: Thaw for IUI Nichelle Gonzalez [facility] 06-09-2024 History of Present illness Narrative Thaw for IUI Nichelle Gonzalez documented in this encounter [facility] 06-09-2024 Note HNO ID: [id number] Author: NICHELLE GONZALEZ, ? Service: ? Author Type: Fortune Teller Type: Progress Notes Filed: 06/09/2024 12:30 Note Text: IUI specimen released to provider Nichelle Gonzalez June 09, 2024 11:24 AM [facility] 05-09-2024 Instructions Shelly Hernandez APRN.WORKER'S COMPENSATION CLAIMS EXAMINER - 05/09/2024 9:08 AM EST Images from the original note were not included. [facility]ODUCT[facility] ENDOCRINOLOGY AND INFERTILITY DONOR SPERM HANDOUT Donor Sperm Checklist: Complete Next Steps: Progesterone blood test 6-8 days after your LH surge - please let me know the test result when you get it. IUI Procedure consent form - sent to you via [employer] today. Please sign when you can. Order sperm Financial Clearance - I sent your chart to the front end loader driver today. Treatment plan: Natural cycle/IUI x 3 cycles. Please schedule a follow up visit with Dr. Guy if you are not after 3 cycles. Sperm Ordering Instructions We need 1 vial per cycle. You will likely need 3-6 vials to establish a . You are welcome to buy more than one and store with the [facility]. Mailing address: Attention: Nichelle Gonzalez [id number] [place] [address], [address] [place] [address] Storage at the [facility] is available. Fees are yearly and only start once you are not actively trying. Please ask the financial team ([phone]) for current cost information. Donor Insemination Scheduling Instructions Please call during the first business day of your menstrual cycle to let the front end loader driver know you will be testing and doing [...] please call the office [place] [address] Available every day, including weekends and holidays (except [place] and New Years.) Weekday IUI scheduling The day you get your LH surge, please call [phone] between 8:00am - 12:00pm to schedule your insemination for the next day. If you call after 12pm, we may not be able to schedule your appointment. IUI s are done by appointment only. You will make 2 appointments -an arrival [place] [address] Available every day, including weekends and holidays (except [place] and New Years.) Available for IUI using fresh and frozen samples. Check in location for sperm wash and IUI: [address] The sperm wash takes 60-90 minutes. [...] to do another IUI: Call the front end loader driver to make sure you are financially cleared. Ask to speak to an SKYLAR to confirm your treatment plan. Important phone number: [phone] documented in this encounter [facility] 05-09-2024 Note HNO ID: [id number] Author: SHELLY HERNANDEZ APRN.CNP Service: ? Author [...] visit. Either the patient or their legal product representative has been informed of the risks [...] them. No double whammies. Sperm bank/donor #: [employer] [id number] Blood type: A negative CMV Status: negative Genetic carrier considerations: patient Myriad negative donor is a carrier of: CFTR, [id number] Vial types available: IUI and ART Considerations [...] which included preparing to see the patient, [id number]-[id number] patient care, completing clinical documentation, obtaining and/or [...] team. Standard se (more content not included)... [facility] 05-09-2024 History of Present illness Narrative Images from the original note [...] visit. Either the patient or their legal product representative has been informed of the risks [...] cycle day 12 LMP 04/08, + OPK /2 - cycle day 12 Donor Search Criteria [...] negative donor is a carrier of: CFTR, [id number] Vial types available: IUI and ART Considerations [...] which included preparing to see the patient, [id number] patient care, completing clinical documentation, obtaining and/or [...] missed in proofreading. documented in this encounter [facility] 05-02-2024 History of Present illness Narrative Psychosocial Consultation for Third Alliance Party Reproduction Virtual visit with audio and visual equipment POS 10 No SI, Falls, Tobacco use On May 02, 2024, I met virtually with Jaz and Sravan Sanders. They were [facility] by Shelly [facility] for their required psychosocial consultation regarding third alliance party reproduction. Relevant History Jaz, 29, and Demetrius, 26, have been together for 8.5 years and for 6.5 years. 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 Demetrius also works at that [employer]. The couple has been trying to conceive [...] Lynda's have already chosen a donor from [facility] in [place]. They chose this donor because he is CMV-, met their genetic screen (he does not have a history of bipolar disorder) and is phenotypically very similar to Demetrius. He is also listed as open ID. With regard to disclosure, the Tracys are prepared and interested in disclosure to offspring and we reviewed the data on disclosure at a young age and discussed books that are for children to explain the concept. We also discussed the possibility of donor siblings and the lack of anonymity in third alliance party reproduction. They are very comfortable with disclosure. [...] the psychosocial issues inherent in this third alliance party reproductive option. documented in this encounter [facility] Work Phone: 03-11-2024 Note HNO ID: [id number] Author: SHELLY HERNANDEZ APRN.JARROD Service: ? Author [...] visit. Either the patient or their legal product representative has been informed of the risks [...] Practice cycle Plan: Episode created.Reviewed checklist - G-modehart message sent Practice cycle: recommended OPKs to test for ovulation and timing of IUIs, patient to call with +OPK, confirm ovulation with progesterone level Follow up once checklist is complete to discuss test results and next steps. Shelly Hernandez, MELY.WORKER'S COMPENSATION CLAIMS EXAMINER March 11, 2024 10:42 PM I spent a total of 55 minutes on the date of the service which included preparing to see the patient, xgqk-bw-wite patient care, completing clinical documentation, obtaining and/or [...] grammatical and typographical errors missed in proofreading. [facility] 03-11-2024 History of Present illness Narrative Images from the original note [...] visit. Either the patient or their legal product representative has been informed of the risks [...] Practice cycle Plan: Episode created.Reviewed checklist - View3t message sent Practice cycle: recommended OPKs to test for ovulation and timing of IUIs, patient to call with +OPK, confirm ovulation with progesterone level Follow up once checklist is complete to discuss test results and next steps. Shelly Hernandez APRN.WORKER'S COMPENSATION CLAIMS EXAMINER March 11, 2024 10:42 PM I spent a total of 55 minutes on the date of the service which included preparing to see the patient, abfr-oo-qwkg patient care, completing clinical documentation, obtaining and/or [...] missed in proofreading. documented in this encounter [facility] 03-09-2024 Instructions Shelly Hernandez APRN.CNP [...] please call the office. ~Silvia Hernandez APRN.CNP [phone] Donor Sperm Checklist Donor Sperm Labs Mandatory [...] Sravan must be present Amanda Gillespie MD ([place]) - [phone] Rani Sims (Filomena Hernandez) - [phone] - virtual visit Saúl Enriquez, - virtual [...] to date). Please get scheduled with your veneer taper or pcp if needed. Practice with Ovulation Predictor Kit (OPK) First day of full flow is cycle day #1. Start using on ovulation predictor kit on cycle day 10. Use your OPK once a day, in the morning with your second urine of the day. Send in a [employer] message when you get a positive OPK. [...] Once your checklist is complete, please call [phone] to get scheduled for a donor sperm follow up appointment. Sperm Bank Website [place] [facility] https://www.[email or web address]/ [facility] https://cryobio.com/ [facility] https://www.cryosinternational.co m/ [place] [facility] https://Newgen Software TechnologiesfaEyeview.com/ [place] [facility] https://www.HOMEOSTASIS LABSperNix Hydraank.com/ [facility] [place] https://www.thespermbankofca.org/ [facility] https://www.[employer]is [employer] Limited.GlyGenix Therapeutics/ [facility] https://www.xytex.com/ If you would like to start browsing [...] is needed. Test: CPT Code: Blood type 39014 HIV 94552 CMV IgG 97025 CMV IgM 60343 Syphilis 89166 Hepatitis B Surface Ag 56527 Hepatitis B Core Ab, IgG and IgM 83741 Hepatitis C Ab 82655 Rubella 06151 Varicella 75169 Chlamydia 40315 Gonorrhea 83063 For the above tests, reference the diagnosis code of Z11.9 documented in this encounter [facility] 02-28-2024 Plan of care note [...] for three cycles. They will meet with PUBLIC RELATIONS PLAYER to review the IUI checklist and sign consents. I spent a total of 45 minutes on the date of the service which included preparing to see the patient, lvhk-qu-gmmy patient care, completing clinical documentation, counseling and educating the patient/family/caregiver, and ordering medications, tests, or procedures. Ignacio Guy MD [facility] 02-28-2024 Miscellaneous Notes Assessment- male [...] for three cycles. They will meet with PUBLIC RELATIONS PLAYER to review the IUI checklist and sign consents. I spent a total of 45 minutes on the date of the service which included preparing to see the patient, oiib-ns-vdpw patient care, completing clinical documentation, counseling and educating the patient/family/caregiver, and ordering medications, tests, or procedures. Ignacio Guy MD documented in this encounter [facility] 02-28-2024 Instructions Ignacio Guy MD - 02/28/2024 2:47 PM EST Dear Jaz Sanders Using donor sperm at the [facility] requires some set up (outlined below). Requirements to use donor sperm at the [facility]: Teaching with JAMEL SKYLAR - please call [phone] to schedule a donor sperm teach with [...] to help with the donor selection process. [employer] Carrier Screen is the test ordered. Processing time takes 2-3 weeks. If your insurance doesn't cover it, the self-pay de oliveira is ~$250. Counselor You and your partner/spouse (if applicable) must see a counselor for a donor sperm assessment. Amanda Gillespie MD ([place]) - [phone] Rani Sims ([place]a Hernandez) - [phone] Doris Lama ([place]) - [phone] Consent form - must be signed by [...] Required Tests Test: CPT Code: Blood type 00657 HIV 14087 CMV IgG 53700 CMV IgM 79573 Syphilis 91331 Hepatitis B Surface Ag 57032 Hepatitis B Core Ab, IgG and IgM 17433 Hepatitis C Ab 42821 Rubella 29350 Varicella 95764 Chlamydia 48470 Gonorrhea 61894 For the above tests, reference the diagnosis code of Z31.49. Friend Traveler Foresight Carrier Screen - Friend Traveler will check coverage for you. For this [...] your test results into consideration. Sperm Bank [facility] [place] [facility] ([place]) [facility] [place] [facility] [place] ([facility] [place]) [place] [facility] *Do not order any sperm until your checklist is complete. We will review ordering instructions at your follow up visit. Next Steps: Call insurance to verify coverage for donor sperm panel. Schedule donor sperm teach with my nurse practitioner, Silvia Hernandez. Ignacio Guy MD [phone] documented in this encounter [facility] 02-28-2024 Note HNO ID: [id number] Author: IGNACIO GUY MD Service: ? Author [...] OB History Obstetric History No data available AUDIT TECH HISTORY: Patient's last menstrual period was 02/18/2024. [...] 02/28/2024 (Not on File) Fully Assessed 02/28/2024 ____ Partner History Both patient and partner give permission to discuss test results and medication information with the other. Partner gives permission to access EMR. 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 They will meet with PUBLIC RELATIONS PLAYER to review the IUI checklist and sign consents. I spent a total of 45 minutes on the date of the service which included preparing to see the patient, eyol-vn-dhel patient care, completing clinical documentation, counseling and educating the patient/family/caregiver, and ordering medications, tests, or procedures. Ignacio Guy MD [facility] 02-28-2024 History of Present illness Narrative Images from the original note [...] OB History Obstetric History No data available AUDIT TECH HISTORY: Patient's last menstrual period was 02/18/2024. [...] 02/28/2024 (Not on File) Fully Assessed 02/28/2024 ____ Partner History Both patient and partner give permission to discuss test results and medication information with the other. Partner gives permission to access EMR. 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 They will meet with PUBLIC RELATIONS PLAYER to review the IUI checklist and sign consents. I spent a total of 45 minutes on the date of the service which included preparing to see the patient, elqn-kf-mevx patient care, completing clinical documentation, counseling and educating the patient/family/caregiver, and ordering medications, tests, or procedures. Ignacio Guy MD documented in this encounter [facility] 02-27-2024 Evaluation note Diagnosis Onset Date Resolution Degenerative superior labral uzofywrr-nv-vcbporubp (SLAP) tear of right matthias acute Novembe r 2023 2:25pm Laxity of ligament acute Novemb er 2023 2:25pm Multidirectional instability of glenohumeral joint acute February 2:25pm Other instability, right shoulder acute February 26, 024 2:25pm Right carpal tunnel syndrome acute February 26 024 2:25pm Status post arthroscopy of right shoulder acute February 27, 2024 2:25pm Status post surgery noneactive Novem wenceslao 2023 2:25pm Degenerative superior labral itzmvqgd-mi-xiezuwraj (SLAP) tear of right matthias acute April 23, 2024 2:29pm Laxity of ligament acute 2024 2:29pm Multidirectional instability of glenohumeral joint acute April 23, 2024 2:29pm Other instability, right shoulder acute April 23 2:29pm Right carpal tunnel syndrome acute April 23 2:29pm Status post arthroscopy of right shoulder acute April 23, 2 025 2:29pm [facility] Work Phone: 1(793) 506-480711-11-2024 Evaluation note* Diagnosis Onset Date Resolution Status Admit Date Degenerative superior labral tfttwrze-fs-nryaviign (SLAP) tear of right matthias acute February [...] Novem wenceslao 2023 2:25pm Degenerative superior labral lakpmrkm-ib-ztajgsekk (SLAP) tear of right matthias acute April [...] 8:29am Other chronic pain acute 2024 8:29am [facility] Work Phone: 1(444) 879-396311-04-2024 History of Present illness Narrative* Marsha Asif [...] nursing note reviewed. Exam conducted with a accounting reconciliation clerk present. Vitals: Estimated body mass index is [...] by Marsha Asif MA on behalf of: Jojo Kwaku, PAC documented in this [facility]fdaq[facility]-81-6053 Note [id number]#1.00[facility]09-03-2024 Evaluation note* Diagnosis Onset Date Resolution Status Admit Date Degenerative superior labral tnhfnecd-ss-ocqoxrbdo (SLAP) tear of right matthias acute December [...] Septe mber 2023 10:11am Degenerative superior labral ukzdlfim-jd-zggujwwkm (SLAP) tear of right matthias acute January 16 11:58am Laxity of ligament acute Octobe r 2023 11:58am Multidirectional instability of glenohumeral joint acute January 11:58am Other instability, right shoulder acute January 16 11:58am Right carpal tunnel syndrome acute January 17, 2024 11:58am Status post arthroscopy of right shoulder acute January 16 11:58am Status post surgery noneactive Octob er 2023 11:58am Degenerative superior labral asicsmqh-mk-uqpplrtvy (SLAP) tear of right matthias acute February [...] post surgery noneactive Novem wenceslao 2023 2:25pm [facility] Work Phone: 1(758) 148-357307-17-2024 NoteEducation Materials Orthopedics Musculoskeletal Pain Musculoskeletal pain [...] mouth or applied to the skin. Take eads-oqp-focfeyo and prescription medicines only as told by [...] provider. Document Revised: 08/07/2020 Document Reviewed: 07/16/2020 [employer] Patient Education ? 2022 [place].[facility]qqc[facility]nt03-07-0081 Evaluation note* Encounter Date Diagnosis Assessment Notes Treatment Notes Treatment Clinical Notes Apr, Intertrigo (ICD-10 - L30.4) [facility] Other 01-30-2024 Evaluation note* Encounter Date Diagnosis [...] pain of right shoulder (ICD-10 - M25.511) [facility] Other 01-05-2024 Evaluation note* Encounter Date Diagnosis Assessment Notes Treatment Notes Treatment Clinical Notes Apr, Other iron deficiency anemia (ICD-10 - D50.8) [facility] Other 12-28-2023 Evaluation note* Encounter Date Diagnosis Assessment Notes Treatment Notes Treatment Clinical Notes Mar, Vitamin D deficiency (ICD-10 - E55.9) [facility] Other 10-23-2023 Evaluation note* Encounter Date Diagnosis [...] agreement for this and referral was given. [facility] Other 09-21-2023 Evaluation note* Encounter Date Diagnosis Assessment Notes Treatment Notes Treatment Clinical Notes Dec, Other iron deficiency anemia (ICD-10 - D50.8) Dec, Low folic acid (ICD-10 - E53.8) [facility] Other 09-11-2023 Evaluation note* Encounter Date Diagnosis [...] continue to do the exercises for strength. [facility] Other 07-06-2023 Evaluation note* Encounter Date Diagnosis Assessment Notes Treatment Notes Treatment Clinical Notes Oct, Iron deficiency (ICD-10 - E61.1) [facility] Other 06-26-2023 Evaluation note* Encounter Date Diagnosis [...] symptoms and causing pain down the arm. [facility] Other 06-15-2023 Evaluation note* Encounter Date Diagnosis [...] verbalizes understanding and agrees c tx plan. [facility] Other 05-10-2023 Evaluation note* Encounter Date Diagnosis [...] follow-up if no improvement. She verbalizes understnading. [facility] Other 05-05-2023 Evaluation note* Encounter Date Diagnosis Assessment Notes Treatment Notes Treatment Clinical Notes August, Acquired hypothyroidism (ICD-10 - E03.9) Discussed with pt symptoms and lab resutls. Discussed treatment and evaluation. Referral placed to Dr. Sinclair. 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 Patient has an appointment with her VIBRATION TECHNICIAN next week. Educated her to go to ED if she continues to have heavy bleeding with symptoms, she verbalized understanding. We will send patient home on iron supplements and docusate as needed for constipation Patient is being discharged today. Documented By: Farhad Gallego MD 06/11/22 1306 Signed By: <Electronically signed by Farhad Gallego MD> 06/11/22 1316 [facility] Work Phone: 1(300) 908-587402-23-2023 History and physical note Author Farhad Gallego [facility] June 10, 2022 6:28pm Note Date/Time June 10, 2022 5:39pm [facility] [address] [place] [address] Hospitalist H&P Signed Patient: Jaz Sanders MR#: [id number] : 1995 Acct:[id number] Age/Sex: 27 / F Adm Date: 3 Loc: Room: [address] [place] [address] Type: ADM INOo Attending Dr: Farhad Gallego MD Copies to: MD Amanda Correa, MOLDING FITTER, WORKER'S COMPENSATION CLAIMS EXAMINER~ HPI DATE OF EXAMINATION: 06/10/22 CHIEF COMPLAINT: [...] % (Auto) 41.3 % (.) 06/10/22 14:51 [place] % (Auto) 6.8 % (.) 06/10/22 14:51 Eos % (Auto) 5.0 % (.) 06/10/22 14:51 Baso % (Auto) 1.8 % (.) 06/10/22 14:51 Nucleat RBC Rel Count 0.1 /100 WBC (0-0.5) 06/10/22 14:51 Neut # (Auto) 2.4 x10E3/uL (1.8-7.7) 06/10/22 14:51 Lymph # (Auto) 2.2 x10E3/uL (1.00-4.8) 06/10/22 14:51 [place] # (Auto) 0.4 x10E3/uL (0.0-0.8) 06/10/22 14:51 [...] pH 5.5 (5.0-9.0) 06/10/22 15:40 Ur Specific [place] 1.010 (1.001-1.030) 06/10/22 15:40 Urine Protein Negative [...] signed by Farhad Gallego MD> 06/10/22 1828 [facility] Work Phone: 1(727) 776-643601-04-2023 Evaluation note* Encounter Date Diagnosis Assessment Notes [...] for bleeding. Keep appointment with Dr. Elder. 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 And she has discussed this with Julieta and she had offered her treatement for this. [facility] Other 11-30-2022 Evaluation note* Encounter Date Diagnosis Assessment Notes Treatment Notes Treatment Clinical Notes Feb, Gastroesophageal ref lux disease without esophagitis (ICD-10 - K21.9) [facility] Other 10-24-2022 Evaluation note* Encounter Date Diagnosis [...] to trial the ointment. Follow-up as needed. [facility] Other 05-11-2022 NoteEchocardiology Procedure Exam Date/Time Accession # Ordering Echo Transthoracic 08/25/2021 15:36 EDT [id number] Jay DAVEY, Samir Rivera CPT code 54704 Reason for Exam (Echo Transthoracic Complete) Bradycardia;Other [...] Robin Salazar MD Transcribed by: kerry Technologist: [facility]04-21-2022 Note Echocardiology Procedure Exam Date/Time Accession # Ordering ECG Stress Exercise 08/06/2021 10:22 EDT [id number] Jay DAVEY, Samir Rivera CPT code 15347 Reason for Exam (ECG Stress Exercise) bradycardia;Other [...] Robin Salazar MD Transcribed by: nakul Technologist: [facility]03-31-2022 Evaluation note* Encounter Date Diagnosis Assessment [...] school on two different occasions.Order faxed to [employer]. Jun, Gastroesophageal reflux disease without esophagitis (ICD-10 [...] Jun, Former smoker (ICD-1 0 - Z87.891) [facility] [employer] Other evaluation + Plan note Future Appointments Appointment Date:08/06/2021 09:30:00 AM Scheduled Provider: [facility] Appoint[facility] Type:CV Stress (FT) Appointment Date:08/06/2021 11:00:00 AM Scheduled Provider: [facility] Appoint[facility] Type:CV Holter/Event (FT) Future Scheduled Tests Radiology* Echo Transthoracic Complete 07/24/21 * ECG [facility] Appointment Date:08/11/2021 10:30:00 AM Scheduled Provider:Samir Thompson MD [facility] [place] [facility] Type:Cardiology Follow Up (FT) [facility] Future App[facility]ments Appointment Date:09/01/2021 02:30:00 PM Scheduled Provider:Samir Thompson MD [facility] [place] [facility] Type:[facility]iology [facility] Up (FT) [facility] Future App[facility]ments Appointment Date:2022 11:15:00 AM Scheduled Provider:Samir Thompson MD Location:.[facility]iology Clinic Appointment Type:Cardiology Follow Up (FT) [facility] noteNo InformationNortNew [facility] Other evaluation noteNo assessment information available [facility] Work Phone: evaluation note* Diagnosis Onset Date Resolution Status Anemia acute Anxiety and depression acute Bipolar disorder acute Iron deficiency anemia acute [facility] Work Phone: evaluation note* Diagnosis Onset Date Resolution Status Abdominal pain acute Chills acute Constipation acute Fever acute H/O gastric sleeve acute Vomiting acute [facility] Work Phone: evaluation note* Diagnosis Onset Date Resolution Status [id number] acute Laxity of ligament acute Multidirectional instability of glenohumeral joint acute Numbness of right hand acute Other instability, right shoulder acute [facility] Work Phone: Evaluation note* Diagnosis Onset Date Resolution Status [id number] acute Laxity of ligament acute Multidirectional instability of glenohumeral joint acute Numbness of right hand acute Other instability, right shoulder acute [id number] acute Laxity of ligament acute Multidirectional instability of glenohumeral joint acute Numbness of right hand acute Other instability, right shoulder acute Right carpal tunnel syndrome acute [facility] Work Phone: Evaluation note* Diagnosis Onset Date Resolution Status [id number] acute Laxity of ligament acute Multidirectional instability of glenohumeral joint acute Numbness of right hand acute Other instability, right shoulder acute [id number] acute Laxity of ligament acute Multidirectional instability of glenohumeral joint acute Numbness of right hand acute Other instability, right shoulder acute Right carpal tunnel syndrome acute [id number] acute Laxity of ligament acute Multidirectional instability of glenohumeral joint acute Other instability, right shoulder acute Right carpal tunnel syndrome acute [facility] Work Phone: Evaluation note* Diagnosis Onset Date Resolution Status [id number] acute Laxity of ligament acute Multidirectional instability of glenohumeral joint acute Numbness of right hand acute Other instability, right shoulder acute [id number] acute Laxity of ligament acute Multidirectional instability of glenohumeral joint acute Numbness of right hand acute Other instability, right shoulder acute Right carpal tunnel syndrome acute [id number] acute Laxity of ligament acute Multidirectional instability of glenohumeral joint acute Other instability, right shoulder acute Right carpal tunnel syndrome acute [id number] acute Laxity of ligament acute Multidirectional instability of glenohumeral joint acute Other instability, right shoulder acute Right carpal tunnel syndrome acute Status post arthroscopy of right shoulder acute [facility] Work Phone: Evaluation note* Diagnosis Onset Date Resolution Status [id number] acute Laxity of ligament acute Multidirectional instability of glenohumeral joint acute Numbness of right hand acute Other instability, right shoulder acute Right carpal tunnel syndrome acute [id number] acute Laxity of ligament acute Multidirectional instability of glenohumeral joint acute Other instability, right shoulder acute Right carpal tunnel syndrome acute [id number] acute Laxity of ligament acute Multidirectional instability of glenohumeral joint acute Other instability, right shoulder acute Right carpal tunnel syndrome acute Status post arthroscopy of right shoulder acute Status post surgery noneacti ve [id number] acute Laxity of ligament acute Multidirectional instability of glenohumeral joint acute Other instability, right shoulder acute Right carpal tunnel syndrome acute Status post arthroscopy of right shoulder acute Status post surgery noneacti ve [facility] Work Phone: Evaluation note* Diagnosis Well woman exam with routine gynecological exam Routine gynecological examination [facility] Diagnosis 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 note* Diagnosis Bipolar 1 disorder (Multi)- Primary Infertility counseling documented in this encounter [facility] Work Phone: Evaluation note* Diagnosis Treatment plan provided- Primary documented in this encounter 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 note* Diagnosis Fertility testing- Primary Female infertility Female infertility of unspecified origin [facility]* Diagnosis Encounter for fertility planning [Z31.89]- Primary Other specified procreative management documented in this encounter [facility] note* Diagnosis Encounter for artificial insemination- Primary Artificial insemination [facility] Diagnosis 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)- Primary [facility] Diagnosis 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)- Primary [facility] Diagnosis Abnormal thyroid function test- Primary Nonspecific abnormal results of thyroid function study 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 Vitamin D deficiency documented in this encounter [facility]* Diagnosis 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) [facility] Diagnosis Early stage of (HCC) state, incidental [facility] Diagnosis Amenorrhea Absence of menstruation 9 weeks gestation of Missed menses , unspecified gestational age Encounter for supervision of normal first in first trimester documented in this encounter [facility] Healthcare[facility] note* Diagnosis 13 weeks gestation of ([facility]) Second trimester ([facility]) state, incidental Thyroid disease Unspecified disorder of thyroid H/O gastric sleeve H/O iron deficiency anemia resulting from in vitro fertilization in first trimester ([facility]) documented in this encounter [facility] HealthcareEvaluation note* Diagnosis Well woman exam with routine gynecological exam Routine gynecological examination Exposure to STD Second trimester ([facility]) state, incidental 18 weeks gestation of ([facility]) Need for maternal serum alpha-protein (MSAFP) screening ([facility]) Screening, , for anatomic survey ([facility]) Encounter for anatomic survey Thyroid disease Unspecified disorder of thyroid documented in this encounter [facility] HealthcareEvaluation note* Diagnosis Previous gastric bypass affecting , antepartum- Primary Hypothyroidism affecting in second trimester 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 ([facility]) Obesity affecting in second trimester, unspecified obesity type Encounter for supervision of resulting from assisted reproductive technology, antepartum documented in this encounter [facility] Diagnosis 20 weeks gestation of - Primary Previous gastric bypass affecting , antepartum Obesity affecting in second trimester, unspecified obesity type Hypothyroidism affecting in second trimester 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 ([facility]) headache in second trimester documented in this [facility] N[facility]ative - Reported* Type Description Date Surgical History cholecystectomy 2014 Surgical History gastric sleeve 2020 [facility] [employer] Other History general Narrative - Reported* Type Description Date Medical History Hypothyroidism Medical History MNG Medical History enuresis Medical History extreme obesity Medical History GERD with esophagitis Medical History headache Medical History Goiter, nontoxic, multinodular Medical History Vitamin D deficiency Surgical History cholecystectomy 2014 Surgical History cholecystectomy 2016 Surgical History gastric sleeve 2020 Hospitalization History Anemia 05/2022 [facility] [employer] Other Hospital course Narrative No data available for this section [facility] Discharge instructions No data available for this section [facility] Discharge instructions Additional Instructions POSTOPERATIVE INSTRUCTIONS FOR SHOULDER LABRAL REPAIR Romeo Santana DO Orthopedic Surgeon [facility] INSTRUCTIONS: Use ice packs to the shoulder [...] office immediately. Romeo Santana DO Orthopedic Surgeon [facility] Office: [address] [place], [place] [address] Office number: [phone] [facility] Work Phone: Hospital Discharge instructionsAmbulatory Orders* Referral to Allergy/Immunology Time Frame: 04/26/24, Location: None Selected [facility] Work Phone: Hospital Discharge instructions Additional Instructions We evaluated you for your vaginal bleeding in . Your ultrasound was normal, the baby has a good heart rate, measuring at 13 weeks and 1 day. Your cervix was closed. Follow-up closely with your VIBRATION TECHNICIAN. Return to the emergency department if you develop any worsening or concerning symptoms.[facility] Work Phone: InstructionsNot on filedocumented in this encounter [facility]ructionsNot on filedocumented in this encounter [facility]Instructions* Attachments The following attachments cannot be sent through Care Everywhere. * Preeclampsia (Burmese) [facility] SystemReason for referral (narrative)No reason for referral [facility] Work Phone: Ressm rehab for visit Narrative* Consult, Test, Treat (Routine) - Closed Specialty Diagnoses / Procedures Referred By Contact Referred To Contact [facility] Diagnoses Encounter for procreative management, unspecified Encounter for other procreative management Procedures ARTIFIC INSEMINATION INTRAUTERIN THAWING CRYOPRESERVED SPERM/SEMEN EACH ALIQUOT Daniel Hanna APRN.WORKER'S COMPENSATION CLAIMS EXAMINER [address] [place] [id number] Phone: tel: [phone] fax: [phone] Reproductive Endocrinology Infertility [address] [place] [id number] Phone: tel: Referral ID Status Reason Start Date Expiration Date V isits Requested Visits Authorized [id number] Closed Financial Clearance Required - Self Pay Patient Cleared - True Self-Pay required payment collected Do Not Bill Insurance - SP patient 05/17/2024 08/15/2024 2 2 [facility] for visit Narrative* Diagnostic Procedure Only (Routine) - Authorized Specialty Diagnoses / Procedures Referred By Contac t Referred To Contact [facility] Diagnoses Fertility testing Procedures PELVIC US WHI US PELVIC NONOBSTETRIC REAL-TIME IMAGE COMPLETE Ignacio Guy MD [address] [place] [place] [id number] Phone: tel: fax: [facility] [address] [place] [address] Referral ID Status Reason Start Date Expiration Date Visits Requested Visits Authorized [id number] Authorized Auto-Generate d Referral Patient Cleared - True Self-Pay required payment collected Do Not Bill Insurance - SP patient 06/09/2024 06/09/2025 2 2 [facility] for visit Narrative* Consult, Test, Treat (Routine) - Closed Specialty Diagnoses / Procedures Referred By Contact Referred To Contact [facility] Diagnoses Encounter for procreative management, unspecified Encounter for other procreative management Procedures THAWING CRYOPRESERVED SPERM/SEMEN EACH ALIQUOT ARTIFIC INSEMINATION INTRAUTERIN Daniel Hanna, MELY.WORKER'S COMPENSATION CLAIMS EXAMINER [address] [place] [id number] Phone: tel:[phone] fax: [phone] Reproductive Endocrinology Infertility [address] [place] [address] Phone: tel: Referral ID Status Reason Start Date Expiration Date V isits Requested Visits Authorized [id number] Closed Patient Cleared - True Self-Pay required payment collected Do Not Bill Insurance - SP patient 06/29/2024 09/27/2024 2 2 [facility] for visit Narrative* Financial Clearance (Routine) - Closed Specialty Diagnoses / Procedures Referred By Saud t Referred To Contact [facility] Diagnoses Collect for IUI-D washed sample Procedures THAWING CRYOPRESERVED SPERM/SEMEN EACH ALIQUOT ARTIFIC INSEMINATION INTRAUTERIN FINANCIAL CLEARANCE PHONE CALL Self Financial Clearance Phone Screening [place] [address] Referral ID Status Reason Start Date Expiration Date V isits Requested Visits Authorized [id number] Closed Financial Clearance Required - Self Pay Patient Cleared - True Self-Pay required payment collected Do Not Bill Insurance - SP patient 07/25/2024 09/23/2024 2 2 [facility] for visit Narrative* Diagnostic Procedure Only (Routine) - Closed Specialty Diagnoses / Procedures Referred By Saud tavera Referred To Contact [facility] Diagnoses 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) Procedures OBSTETRIC ULTRASOUND WHI US PREG UTERUS AFTER 1ST TRIMEST GESTATION Shelly Hernandez APRN.WORKER'S COMPENSATION CLAIMS EXAMINER [address] [place] [id number] Phone: tel: fax: [address] [address] Referral ID Status Reason Start Date Expiration Date V isits Requested Visits Authorized [id number] Closed Auto-Generate d Referral 08/20/2024 08/20/2025 1 1 [facility] for visit Narrative* Diagnostic Procedure Only (Routine) - Closed Specialty Diagnoses / Procedures Referred By Saud t Referred To Contact [facility] Diagnoses Early stage of (HCC) Procedures OBSTETRIC ULTRASOUND WHI US PREG UTERUS AFTER 1ST TRIMEST / GESTATION Shelly Hernandez APRN.WORKER'S COMPENSATION CLAIMS EXAMINER [address] [address] Phone: tel: fax: [address] [address] Referral ID Status Reason Start Date Expiration Date V isits Requested Visits Authorized [id number] Closed Auto-Generate d Referral 09/03/2024 04/17/2025 1 1 [facility] Advance Directives No Advanced Directives Records FoundDocuments on File Type Date Recorded Patient Diesel Retrofit Designer Expl anation ACP-Advance Directive ACP-Power of Gastroenterology Professor Documents on File Type Date Recorded Patient Diesel Retrofit Designer Expl anation ACP-Advance Directive ACP-Power of Gastroenterology Professor Latest Code Status on File Code Status [...] drive you home after your procedure. Your sales route driver helper must be 18 years of age or [...] questions, call the Pre-Admission Testing Unit at [phone]. Day of Surgery/Procedure As a patient at [facility] you can expect quality medical and nursing care that is centered on your individual needs. Our goal is to make your surgical experience as comfortableas possible . Directions to the Surgery Center [facility] is located at [address] [place] [address]. Please pull into the Emergency parking lot and stop at the municipal bond trader dotson. We offer free municipal bond trader service for all our surgery patients, if you choose not to have municipal bond trader parking we have additional parking across the street.You will enter the facility following the [facility] sign. Please stop at the kettle chipper desk where you will be checked in by the staff. If you have any questions please call [phone]. Transportation after your procedure. You will need a friend or family member to drive you home after your procedure. Your sales route driver helper must be18 years of age or older [...] may shave your face or neck. ? [place] your teeth but do not swallow water. [...] or the day of surgery, please call [phone], or [phone] documented in this encounter* Instructions* Mukesh Montez, [...] 48 hours call the anesthesia department at [phone]. Will you need pain medication? The nerve [...] block please phone the Anesthesiology Department at [phone]. If the phone does not get answered please contact the hospital under seal operator at [phone] to page the environmental educator anesthesiologist Discharge Instructions for Bariatric Surgery You had a Laparoscopic Sleeve Gastrectomy (84602) surgery to treat obesity. Recovery from this [...] scheduled appointment, please call the office at [phone]. Call Your Doctor If Any of the [...] AM EST CLINICAL PHARMACY NOTE: MEDS TO [facility] Select Patient?: No Total # of Prescriptions Filled: 3 The following medications were delivered to the patient: Oxycodone-acetaminophen 5/325 mg tab Cyclobenzaprine 10 mg tab Enoxaparin 60mg /0.6 ml syr Total # of Interventions Completed: 1 Time Spent (min): 60 Additional Documentation:called disease case manager about the high co-pay on the enoxaparin [...] SHOULDER DI SCUSS SURGERY Reason for Visit [id number] Laxity of ligament Multidirectional instability of glenohumeral joint Numbness of right hand Other instability, right shoulder Chief Complaint OP SP RT SHOULDER DI SCUSS SURGERY R20.0 Reason for Visit [id number] Laxity of ligament Multidirectional instability of glenohumeral joint Numbness of right hand Other instability, right shoulder Chief Complaint OP SP RT SHOULDER DI SCUSS SURGERY R20.0 EMG RESULTS Reason for Visit [id number] Laxity of ligament Multidirectional instability of glenohumeral joint Numbness of right hand Other instability, right shoulder [id number] Laxity of ligament Multidirectional instability of glenohumeral joint Numbness of right hand Other instability, right shoulder Right carpal tunnel syndrome Chief Complaint OP SP RT SHOULDER DI SCUSS SURGERY R20.0 EMG RESULTS Shoulder pain Reason for Visit [id number] Laxity of ligament Multidirectional instability of glenohumeral joint Numbness of right hand Other instability, right shoulder [id number] Laxity of ligament Multidirectional instability of glenohumeral joint Numbness of right hand Other instability, right shoulder Right carpal tunnel syndrome Chief Complaint OP SP RT SHOULDER DI SCUSS SURGERY R20.0 EMG RESULTS Shoulder pain H & P RIGHT SHOULDER ARTHROSCOPY 12-07-23 Reason for Visit [id number] Laxity of ligament Multidirectional instability of glenohumeral joint Numbness of right hand Other instability, right shoulder [id number] Laxity of ligament Multidirectional instability of glenohumeral joint Numbness of right hand Other instability, right shoulder Right carpal tunnel syndrome [id number] Laxity of ligament Multidirectional instability of glenohumeral joint Other instability, right shoulder Right carpal tunnel syndrome Chief Complaint OP SP RT SHOULDER DI SCUSS SURGERY R20.0 EMG RESULTS Shoulder pain H & P RIGHT SHOULDER ARTHROSCOPY 12-07-23 Shoulder pain Shoulder pain Reason for Visit [id number] Laxity of ligament Multidirectional instability of glenohumeral joint Numbness of right hand Other instability, right shoulder [id number] Laxity of ligament Multidirectional instability of glenohumeral joint Numbness of right hand Other instability, right shoulder Right carpal tunnel syndrome [id number] Laxity of ligament Multidirectional instability of glenohumeral joint Other instability, right shoulder Right carpal tunnel syndrome Chief Complaint OP SP RT SHOULDER DI SCUSS SURGERY R20.0 EMG RESULTS Shoulder pain H & P RIGHT SHOULDER ARTHROSCOPY 12-07-23 Shoulder pain Shoulder pain 10-14 DAYS POST OP Reason for Visit [id number] Laxity of ligament Multidirectional instability of glenohumeral joint Numbness of right hand Other instability, right shoulder [id number] Laxity of ligament Multidirectional instability of glenohumeral joint Numbness of right hand Other instability, right shoulder Right carpal tunnel syndrome [id number] Laxity of ligament Multidirectional instability of glenohumeral joint Other instability, right shoulder Right carpal tunnel syndrome [id number] Laxity of ligament Multidirectional instability of glenohumeral joint Other instability, right shoulder Right carpal tunnel syndrome Status post arthroscopy of right shoulder Chief Complaint R20.0 EMG RESULTS Shoulder pain H & P RIGHT SHOULDER ARTHROSCOPY 12-07-23 Shoulder pain Shoulder pain 10-14 DAYS POST OP R20.0 4 WEEKS Reason for Visit [id number] Laxity of ligament Multidirectional instability of glenohumeral joint Numbness of right hand Other instability, right shoulder Right carpal tunnel syndrome [id number] Laxity of ligament Multidirectional instability of glenohumeral joint Other instability, right shoulder Right carpal tunnel syndrome [id number] Laxity of ligament Multidirectional instability of glenohumeral joint Other instability, right shoulder Right carpal tunnel syndrome Status post arthroscopy of right shoulder Status post surgery [id number] Laxity of ligament Multidirectional instability of glenohumeral [...] for Visit Admit Date 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 December 20, 2023 10:11am Laxity of ligament December 20, 2023 10:11am Multidirectional instability of glenohum eral joint December 20, 2023 10:11am Other instability, right shoulder Septem 2023 10:11am Right carpal tunnel syndrome December 192023 10:11am Status post arthroscopy of right shoulde r December 20, 2023 10:11am Status post surgery December 20, 2023 10:11am Degenerative superior labral zebvczfm-ii-veckoqvlx (SLAP) tear of right matthias January 17, 2024 11:58am Laxity of ligament January 17, 2024 11 :58am Multidirectional instability of glenohum eral joint January 17, 2024 11:58am Other instability, right shoulder Octobe 2023 11:58am Right carpal tunnel syndrome January 11:58am Status post arthroscopy of right shoulde r January 17, 2024 11:58am Status post surgery January 17, 2024 11 :58am Degenerative superior labral babvnsmo-do-baxdjpipa (SLAP) tear of right matthias February 27, [...] for Visit Admit Date Degenerative superior labral viinxxci-hv-uisgaitcg (SLAP) tear of right matthias February 27, 2024 2:25pm Laxity of ligament February 27, 2024 2:25pm Multidirectional instability of glenohum eral joint February 27, 2024 2:25pm Other instability, right shoulder Novemb er 2023 2:25pm Right carpal tunnel syndrome February 262023 2:25pm Status post arthroscopy of right shoulde r February 27, 2024 2:25pm Status post surgery February 27, 2024 2:25pm Degenerative superior labral mqukncke-et-jblcjuppa (SLAP) tear of right matthias April 23, [...] 2: 29pm talk about getting allergy tested 2024 8:29am Reason for Visit Admit Date Degenerative superior labral wvfaetme-jz-mghyrurhb (SLAP) tear of right matthias February 27, 2024 2:25pm Laxity of ligament February 27, 2024 2:25pm Multidirectional instability of glenohum eral joint February 27, 2024 2:25pm Other instability, right shoulder Novemb er 2023 2:25pm Right carpal tunnel syndrome February 262023 2:25pm Status post arthroscopy of right shoulde r February 27, 2024 2:25pm Status post surgery February 27, 2024 2:25pm Degenerative superior labral uhejfbyn-hf-retrmjfnz (SLAP) tear of right matthias April 23, 2024 2:29pm Laxity of ligament April 23, 2024 2: 29pm Multidirectional instability of glenohum eral joint April 23, 2024 2:29pm Other instability, right shoulder Apruar 2024 2:29pm Right carpal tunnel syndrome April [...] 0:16am Unknown November 30, 2024 1: 13pm Chief Complaint Admit Date 13 weeks prego spotting October 18, 2024 1 0:16am Unknown November 30, 2024 1: 13pm 19 weeks 5 days IUP, Bright red bleeding with clot December 02, 2024 11:16pm Reason for Referral Reason assess for surgical fixation of labrum tear, failed therapy exercises and steroid injection, MRI at [facility], Dr. 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) Referral Organization [facility] [place] Referring Provider First Name Amanda Referring Provider Last Name Logan Referring Provider Specialty Nurse Pract itioner Referred Organization [facility] Referred Provider Darleen Sinclair Referred Address [address] [facility] [address],[place], [place],[address] Referred Provider Specialty Endocrinolog y Referral Priority Routine General Notes Fore, Chelsi M 023 11:26:34 AM >Received today and waiting for office notes to be locked before sending referral Additional Source Comments Reason for Visit (unrecogniz ed section and content) Status Reason Specialty Diagnoses / Procedures Referre d By Contact Referred To Contact Diagnoses Morbid obesity (HCC) MORBID OBESITY, HYPOTHYROID Procedures WI LAP GASTRIC BYPASS/BEN-EN-Y XI LAPAROSCOPIC ROBOTIC GASTRIC BYPASS BEN-EN-Y, LIVER BIOPSY, EGD- GI UNIT SCHEDULED. Rashard Olivera DO [address] [facility] [address] [place] [address] [facility] Reason Comments Gynecologic Exam Reason Comments Infertility Specialty Diagnoses / Procedures Referred By Saud tavera Referred To Contact [facility] Diagnoses Female infertility, unspecified Procedures VV OFFICE/OP CONSLTJ NEW/EST PT MOD MDM 40 MINUTES Pcp, Ana Rosa, MOLDING FITTER carlos Garcia [facility] [address] [place] [address] Referral ID Status Reason Start Date Expiration Date V isits Requested Visits Authorized [id number] Closed Financial Clearance Required - Self Pay Patient Cleared - True Self-Pay required payment collected Do Not Bill Insurance - SP patient Financial Clearance Not Required 12/30/2023 02/28/2024 1 1 Reason Comments donor sperm teach Specialty Diagnoses / Procedures Referred By Saud tavera Referred To Contact REPRODUCTIVE ENDOCRINOLOGY & FERTILITY Diagnoses Infertility counseling Procedures OFFICE/OUTPATIENT ESTABLISHED MOD MDM 30 MIN Shelly Hernandez, MELY.WORKER'S COMPENSATION CLAIMS EXAMINER [id number] [facility] [address] [id number] carlos Garcia [facility] [address] [address] [place] [address] Referral ID Status Reason Start Date Expiration Date V isits Requested Visits Authorized [id number] Closed Financial Clearance Required - Self Pay Patient Cleared - True Self-Pay required payment collected Do Not Bill Insurance - SP patient 02/28/2024 05/28/2024 1 1 Specialty Diagnoses / Procedures Referred By Saud tavera Referred To Contact REPRODUCTIVE ENDOCRINOLOGY & FERTILITY Diagnoses Encounter for fertility testing Procedures OFFICE/OUTPATIENT ESTABLISHED LOW MDM 20 MIN [facility] [address] [place] [address] [facility] [address] [place] [address] Referral ID Status Reason Start Date Expiration Date V isits Requested Visits Authorized [id number] Closed Financial Clearance Required - Self Pay [...] Reason Comments Amenorrhea Reason Comments Routine Visit Reason Comments IUI Hx gastric bypass Pee's Thyroiditis Ordered Prescriptions (unrec ognized section and content) [...] section and content) DATE CREATED AUTHOR 05/08/2020 [facility] DATE CREATED AUTHOR AUTHOR'S ORGANIZ ATION 03/31/2021 [facility] DATE CREATED AUTHOR AUTHOR'S ORGANIZ ATION 09/04/2021 [facility] DATE CREATED AUTHOR AUTHOR'S ORGANIZ ATION 04/19/2024 [facility] DATE CREATED AUTHOR AUTHOR'S ORGANIZ ATION 05/05/2024 [facility] DATE CREATED AUTHOR AUTHOR'S ORGANIZ ATION 09/12/2024 [facility] DATE CREATED AUTHOR AUTHOR'S ORGANIZ ATION 10/05/2024 [facility] DATE CREATED AUTHOR AUTHOR'S ORGANIZ ATION 12/07/2024 [facility] DATE CREATED AUTHOR AUTHOR'S ORGANIZ ATION 12/07/2024 [facility] DATE CREATED AUTHOR AUTHOR'S ORGANIZ ATION 12/08/2024 [facility] EPIC Care Teams (unrecognized sec tion and content) Team Status: Inactive Member Role Status Dates Robin Appiah MD Primary Care Provider Active Amanda Ford APRN PUBLIC RELATIONS PLAYER-C Attending Provider Act misti Team Status: Inactive Member Role Status Dates Amanda Ford APRN PUBLIC RELATIONS PLAYER-C Primary Care Provider Active Jean Jett PA-C Emergency Provider Active Team Status: Inactive Member Role Status Dates Amanda Ford APRN PUBLIC RELATIONS PLAYER-C Primary Care Provider Active Jack Easton DO Emergency Provider Active Team Status: Active Member Role Status Dates Amanda Ford APRN PUBLIC RELATIONS PLAYER-C Primary Care Provider Active Team Status: Inactive Member Role Status Dates Amanda Ford APRN PUBLIC RELATIONS PLAYER-C Primary Care Provider, Attending Provider Active Team Status: Active Member Role Status Dates Amanda Ford APRN PUBLIC RELATIONS PLAYER-C Primary Care Provider Active Jean Jett PA-C Emergency Provider Active Farhad Gallego MD Admit Provider, Attending Provider A ctive Team Status: Inactive Member Role Status Dates Amanda Ford APRN PUBLIC RELATIONS PLAYER-C Primary Care Provider Active Jean Jett PA-C Emergency Provider Active Farhad Gallego MD Admit Provider, Attending Provider A ctive Team Status: Inactive Member Role Status Dates Amanda Ford APRN PUBLIC RELATIONS PLAYER-C Primary Care Provider Active ANDREW GrecoC Attending Provider Active Team Status: Inactive Member Role Status Dates Provider Conversion Attending Provider Active St art: May 17, 2023 End: May 17, 2023 Team Status: Inactive Member Role Status Dates Amanda Ford APRN PUBLIC RELATIONS PLAYER-C Primary Care Provider, Attending Provider Active Start: June 08, 2023 End: June 08, 2023 Team Status: Active Member Role Status Dates Amanda Ford APRN PUBLIC RELATIONS PLAYER-C Primary Care Provider, Attending Provider Active Start: September 15, 2023 Team Status: Inactive Member Role Status Dates Amanda Ford APRN PUBLIC RELATIONS PLAYER-C Primary Care Provider Active Start: October 13, 2023 End: October 13, 2023 Romeo Santana DO Attending Provider Active St art: October 13, 2023 End: October 13, 2023 Team Status: Inactive Member Role Status Dates Amanda Ford APRN PUBLIC RELATIONS PLAYER-C Primary Care Provider Active Start: October 26, 2023 End: October 26, 2023 Romeo Santana DO Attending Provider Active St art: October 26, 2023 End: October 26, 2023 Team Status: Inactive Member Role Status Dates Amanda Ford APRN PUBLIC RELATIONS PLAYER-C Primary Care Provider Active Start: November 01, 2023 End: November 01, 2023 Romeo Santana DO Attending Provider Active St art: November 01, 2023 End: November 01, 2023 Team Status: Inactive Member Role Status Dates Amanda Ford APRN PUBLIC RELATIONS PLAYER-C Primary Care Provider Active Start: November 28, 2023 End: November 28, 2023 Romeo Santana DO Attending Provider Active St art: November 28, 2023 End: November 28, 2023 Team Status: Inactive Member Role Status Dates Amanda Ford APRN PUBLIC RELATIONS PLAYER-C Primary Care Provider Active Start: December 01, 2023 End: December 01, 2023 Romeo Santana DO Attending Provider Active St art: December 01, 2023 End: December 01, 2023 Team Status: Inactive Member Role Status Dates Amanda Ford APRN PUBLIC RELATIONS PLAYER-C Primary Care Provider Active Start: December 07, 2023 End: December 07, 2023 Romeo Santana DO Attending Provider Active St art: December 07, 2023 End: December 07, 2023 Team Status: Active Member Role Status Dates Amanda Ford APRN PUBLIC RELATIONS PLAYER-C Primary Care Provider Active Start: November Romeo Santana DO Attending Provider, Other Provider Active Start: December 07, 2023 Team Status: Inactive Member Role Status Dates Amanda Ford APRN PUBLIC RELATIONS PLAYER-C Primary Care Provider Active Start: December 192023 End: December 20, 2023 Romeo Santana DO Attending Provider Active St art: December 20, 2023 End: December 20, 2023 Team Status: Active Member Role Status Dates Amanda Ford APRN PUBLIC RELATIONS PLAYER-C Primary Care Provider Active Start: December 182023 Romeo Santana DO Other Provider Active Start: January 10, 2024 Daniel Hampton MD Attending Provider Active Start: January 10, 2024 Team Status: Inactive Member Role Status Dates Amanda Ford APRN PUBLIC RELATIONS PLAYER-C Primary Care Provider Active Start: January 17, 2024 End: January 17, 2024 Romeo Santana DO Attending Provider Active St art: January 17, 2024 End: January 17, 2024 Recoverer Relationship Specialty Start Date End Date Amanda Ford NP [address] [facility] [address] PCP - [facility] Medicine 01/17/23 Recoverer Relationship Specialty Start Date End Date Amanda Ford NP [address] [place] [address] PCP - [facility] Medicine 01/17/23 Team Status: Inactive Member Role Status Dates Amanda Ford APRN PUBLIC RELATIONS PLAYER-C Primary Care Provider Active Start: February 262023 End: February 27, 2024 Romeo Santana DO Attending Provider Active St art: February 27, 2024 End: February 27, 2024 Recoverer Relationship Specialty Start Date End Date Amanda Ford NP [facility] - [facility] Medicine 01/17/23 Team Status: Active Member Role Status Dates Amanda Ford APRN PUBLIC RELATIONS PLAYER-C Primary Care Provider Active Start: February Les Martinez DO Attending Provider Active Start : February 20, 2024 Team Status: Inactive Member Role Status Dates Amanda Ford APRN PUBLIC RELATIONS PLAYER-C Primary Care Provider Active Start: April 23, 2024 End: April 23, 2024 Romeo Santana DO Attending Provider Active St art: April 23, 2024 End: April 23, 2024 Team Status: Inactive Member Role Status Dates Amanda Ford APRN PUBLIC RELATIONS PLAYER-C Primary Care Provider, Attending Provider Active Start: April 26, 2024 End: April 26, 2024 Recoverer Relationship Specialty Start Date End Date Amanda Ford NP [facility] [id number] PCP - General Family Medicine 01/17/23 Recoverer Relationship Specialty [place] [address] [place] [address] [place] [address] PCP - General Family Medicine 01/17/23 Recoverer Relationship Specialty Start Date End Date Amanda Ford NP [address] [place] [address] [place] [address] PCP - General Family Medicine 01/17/23 Recoverer Relationship Specialty Start Date End Date Amanda Ford NP [address] [place] [address] [place] [address] PCP - General Family Medicine 01/17/23 Team Status: Inactive Member Role Status Dates Amanda Ford APRN PUBLIC RELATIONS PLAYER-C Primary Care Provider Active Start: October 18, 2024 End: October 18, 2024 Kassidy Arriaza DO Emergency Provider Active Start: October 18, 2024 End: October 18, 2024 Recoverer Relationship Specialty Start Date End Date Amanda Ford NP [address] [place] [address] [place] [address] PCP - General Family Medicine 01/17/23 Recoverer Relationship Specialty Start Date End Date No Pcp, [place] [address] PCP - General Family Medicine 05/20/20 Recoverer Relationship Specialty Start Date End Date No Pcp, [place] [address] PCP - General Family Medicine 05/20/20 Recoverer Relationship Specialty [place] [address] [place] [address] [place] [address] PCP - General Family Medicine 01/17/23 Recoverer Relationship Specialty Start Date End Date Amanda Ford PUBLIC RELATIONS PLAYER [facility] [place] [address] PCP - General Family Medicine 01/17/23 Recoverer Relationship Specialty Start Date End Date Amanda Ford PUBLIC RELATIONS PLAYER [facility] [facility] [place] [address] PCP - General Family Medicine 01/17/23 Team Status: Active Member Role Status Dates Amanda Ford APRN PUBLIC RELATIONS PLAYER-C Primary Care Provider Active Start: November 17, 2024 Chris Dickerson DO Attending Provider Active S tart: November 17, 2024 Team Status: Active Member Role Status Dates Amanda Ford APRN PUBLIC RELATIONS PLAYER-C Primary Care Provider Active Start: November 20, 2024 Les Martinez DO Attending Provider Active Start : November 20, 2024 Team Status: Active Member Role Status Dates Amanda Ford APRN PUBLIC RELATIONS PLAYER-C Primary Care Provider Active Start: November 30, 2024 Chris Dickerson DO Attending Provider Active S tart: November 30, 2024 Team Status: Inactive Member Role Status Dates Chris Dickerson DO Attending Provider Active S tart: November 30, 2024 End: November 30, 2024 Team Status: Active Member Role Status Dates ANDREW ZhouC Attending Provider Active S tart: December 01, 2024 Team Status: Inactive Member Role Status Dates Amanda Ford APRN PUBLIC RELATIONS PLAYER-C Primary Care Provider Active Start: December 02, 2024 End: December 03, 2024 Eduardo Cruz DO Attending Provider Active Sta rt: December 02, 2024 End: December 03, 2024 Recoverer Relationship Specialty Start Date End Date No Pcp, [place] [address] PCP - General Family Medicine 05/20/20 Recoverer Relationship Specialty Start Date End Date No Pcp, [place] [address] PCP - General Family Medicine 05/20/20 Goals (unrecognized section and content) Type Treatment Intervention Code Status: Full Code Goals may be documented in an alternate section Source Comments (unrecognize d section and content) In the event this informatio n is protected by the Federal Confidentiality of Alcohol and Drug Abuse Patient Records regulations: The Federal rules restrict any use of the information to criminally investigate or prosecute any alcohol or drug abuse patient.[facility] the event this information is protected by the Federal Confidentiality of Alcohol and Drug Abuse Patient Records regulations: The Federal rules restrict any use of the information to criminally investigate or prosecute any alcohol or drug abuse patient.[facility] Center[facility] the event this information is protected by the Federal Confidentiality of Alcohol and Drug Abuse Patient Records regulations: The Federal rules restrict any use of the information to criminally investigate or prosecute any alcohol or drug abuse patient.[facility] the event this information is protected by the Federal Confidentiality of Alcohol and Drug Abuse Patient Records regulations: The Federal rules restrict any use of the information to criminally investigate or prosecute any alcohol or drug abuse patient.[facility] the event this information is protected by the Federal Confidentiality of Alcohol and Drug Abuse Patient Records regulations: The Federal rules restrict any use of the information to criminally investigate or prosecute any alcohol or drug abuse patient.[facility] Center[facility] the event this information is protected by the Federal Confidentiality of Alcohol and Drug Abuse Patient Records regulations: The Federal rules restrict any use of the information to criminally investigate or prosecute any alcohol or drug abuse patient.[facility] Center[facility] the event this information is protected by the Federal Confidentiality of Alcohol and Drug Abuse Patient Records regulations: The Federal rules restrict any use of the information to criminally investigate or prosecute any alcohol or drug abuse patient.[facility] Center[facility] the event this information is protected by the Federal Confidentiality of Alcohol and Drug Abuse Patient Records regulations: The Federal rules restrict any use of the information to criminally investigate or prosecute any alcohol or drug abuse patient.[facility] Center[facility] the event this information is protected by the Federal Confidentiality of Alcohol and Drug Abuse Patient Records regulations: The Federal rules restrict any use of the information to criminally investigate or prosecute any alcohol or drug abuse patient.[facility] Center[facility] the event this information is protected by the Federal Confidentiality of Alcohol and Drug Abuse Patient Records regulations: The Federal rules restrict any use of the information to criminally investigate or prosecute any alcohol or drug abuse patient.[facility] Center[facility] the event this information is protected by the Federal Confidentiality of Alcohol and Drug Abuse Patient Records regulations: The Federal rules restrict any use of the information to criminally investigate or prosecute any alcohol or drug abuse patient.[facility] Center[facility] the event this information is protected by the Federal Confidentiality of Alcohol and Drug Abuse Patient Records regulations: The Federal rules restrict any use of the information to criminally investigate or prosecute any alcohol or drug abuse patient.[facility] Center[facility] the event this information is protected by the Federal Confidentiality of Alcohol and Drug Abuse Patient Records regulations: The Federal rules restrict any use of the information to criminally investigate or prosecute any alcohol or drug abuse patient.[facility] Center[facility] the event this information is protected by the Federal Confidentiality of Alcohol and Drug Abuse Patient Records regulations: The Federal rules restrict any use of the information to criminally investigate or prosecute any alcohol or drug abuse patient.[facility] Center[facility] the event this information is protected by the Federal Confidentiality of Alcohol and Drug Abuse Patient Records regulations: The Federal rules restrict any use of the information to criminally investigate or prosecute any alcohol or drug abuse patient.[facility] Center[facility] the event this information is protected by the Federal Confidentiality of Alcohol and Drug Abuse Patient Records regulations: The Federal rules restrict any use of the information to criminally investigate or prosecute any alcohol or drug abuse patient.[facility] Center[facility] the event this information is protected by the Federal Confidentiality of Alcohol and Drug Abuse Patient Records regulations: The Federal rules restrict any use of the information to criminally investigate or prosecute any alcohol or drug abuse patient.[facility] CenterIn the event this information is protected by the Federal Confidentiality of Alcohol and Drug Abuse Patient Records regulations: The Federal rules restrict any use of the information to criminally investigate or prosecute any alcohol or drug abuse patient.[facility] CenterIn the event this information is protected by the Federal Confidentiality of Alcohol and Drug Abuse Patient Records regulations: The Federal rules restrict any use of the information to criminally investigate or prosecute any alcohol or drug abuse patient.[facility] CenterIn the event this information is protected by the Federal Confidentiality of Alcohol and Drug Abuse Patient Records regulations: The Federal rules restrict any use of the information to criminally investigate or prosecute any alcohol or drug abuse patient.[facility] Center[facility] the event this information is protected by the Federal Confidentiality of Alcohol and Drug Abuse Patient Records regulations: The Federal rules restrict any use of the information to criminally investigate or prosecute any alcohol or drug abuse patient.[facility] CenterIn the event this information is protected by the Federal Confidentiality of Alcohol and Drug Abuse Patient Records regulations: The Federal rules restrict any use of the information to criminally investigate or prosecute any alcohol or drug abuse patient.[facility] CenterIn the event this information is protected by the Federal Confidentiality of Alcohol and Drug Abuse Patient Records regulations: The Federal rules restrict any use of the information to criminally investigate or prosecute any alcohol or drug abuse patient.[facility] CenterIn the event this information is protected by the Federal Confidentiality of Alcohol and Drug Abuse Patient Records regulations: The Federal rules restrict any use of the information to criminally investigate or prosecute any alcohol or drug abuse patient.[facility] CenterIn the event this information is protected by the Federal Confidentiality of Alcohol and Drug Abuse Patient Records regulations: The Federal rules restrict any use of the information to criminally investigate or prosecute any alcohol or drug abuse patient.[facility] CenterIn the event this information is protected by the Federal Confidentiality of Alcohol and Drug Abuse Patient Records regulations: The Federal rules restrict any use of the information to criminally investigate or prosecute any alcohol or drug abuse patient.[facility] CenterIn the event this information is protected by the Federal Confidentiality of Alcohol and Drug Abuse Patient Records regulations: The Federal rules restrict any use of the information to criminally investigate or prosecute any alcohol or drug abuse patient.[facility] FOR RECORDS PERTAINING TO PATIENTS [...] BE BASED ON THE PRIMARY CLINICAL RECORDS. [facility] [employer] [facility]. provides no warranty or guarantee of the accuracy or completeness of information in this document.
--- OUTSIDE RECORDS SUMMARY | 2024-12-15 23:20 | XMS_ITS | Encounter Summary ---
Author Organization [facility] Address [address], [address] [place] [address] Care Team Providers Care Charging Machine Operator Name Role Phone Robin Marquez MD Primary Care Provider Reason for Visit * Reason Comments Medication Refill Encounter Details Date Type Department Care Team (Late st Contact Info) Description 03/22/2019 Refill [facility] [address] [place] [address] [place] [id number] Christina Arreguin, PROFESSOR OF HISTORICAL THEOLOGY - FIBER OPTIC SPLICER Medication Refill Social History Tobacco Use Types [...] documented as of this encounter Care Teams Charging Machine Operator Relationship Specialty Start Date End Date Robin Marquez MD [address] [place] [address] PCP - General Family Medicine 10/10/18 documented as of this encounter
--- OUTSIDE RECORDS SUMMARY | 2024-12-15 23:20 | XMS_ITS | Encounter Summary ---
Author Organization [facility] Address [address] [place] [address] Care Team Providers Care Blower Mechanic Name Role Phone Unavailable Primary Care Provider Unavailabl e Source Comments In the event this information is protected by the Federal Confidentiality of Alcohol and Drug AbusePatient Records regulations: The Federal rules restrict any use of the information to criminally investigate or prosecute any alcohol or drug abuse patient.[facility] Encounter Details Date Type Department Care Team (Late st Contact Info) Description 05/15/2024 Get Medical Advice Reproductive Endocrinology Infertility [address] [place] [address] Shelly Hernandez APRN.UTILITY SALES AND SERVICE MANAGER [address] [place] [address] [employer] order Social History Tobacco Use Types Packs/Day Years Used Date Smoking Tobacco: Never Assessed Area Deprivation Index Answer Date Claudio rded National Score (1-100), lower number is lower ri sk 82 02/28/2024 State Score (1-10), lower number is lower risk 7 02/28/2024 Data from: https://www.neighborhoodatlas.medicine.[facility].edu/. Last address used for calculation [address] [...]
--- OUTSIDE RECORDS SUMMARY | 2024-12-15 23:20 | XMS_ITS | Clinical Summary ---
Author Organization [facility] Address [address], [address] [place] [address] Care Team Providers Care Bread Wrapper Operator Name Role Phone Robin Marquez MD Primary Care Provider [phone] Allergies No known active allergies Medications levothyroxine [...] mouth daily Active Multiple Vitamins-Minera ls (THERAPEUTIC MULTIVITAMIN-FL NERALS) tablet Take 1 tablet by mouth [...] 4:42 PM 05/08/2020 3:13 PM Care Teams Bread Wrapper Operator Relationship Specialty Start Date End Date Robin Marquez MD [address] [id number] PCP - General Family Medicine 10/10/18
--- OUTSIDE RECORDS SUMMARY | 2024-12-15 23:20 | XMS_ITS | Clinical Summary ---
Author Organization [facility] Address [address] [place] [address] Phone Care Team Providers Care Pipe Out Worker Name Role Phone Unavailable Primary Care Provider [...] patient's age to complete this topic Insurance [facility] MEDICAID
--- OUTSIDE RECORDS SUMMARY | 2024-12-15 23:20 | XMS_ITS | Encounter Summary ---
Author Organization [facility] Address [address] [place] [address] Care Team Providers Care Agent Contract Clerk Name Role Phone RosarioAmanda de la fuente Nikole STEEL BARREL REAMER Primary Care Provider Encounter Details Date Type Department Care Team (Late Contact Info) Description 12/02/2024 External Result Encounter [facility] External Department Unsolicited Eduardo Cruz, DO [address] [facility] [address] [place] [address] Social History Tobacco Use Types Packs/Day Years [...] Department Care Team (Late Contact Info) Description 12/19/2024 10:00 AM EDT Routine [facility] [address] [facility] [place] [address] Jojo Ames PA [address] [place] [address] 02/20/2025 1:00 PM EST Office Visit [facility] [place] [facility] [address] [place] [phone] Les Martinez, DO [address] [facility] [address] [place], [place] [address] 08/21/2025 9:30 AM EDT Office Visit [facility] [place] [facility] [address] [place] [address] Darleen Sinclair MD [address] [place] [address] documented as of this encounter Goals Goal Patient Goal Type Associated Problems Recent Progress Patient-Stated? Author Reminders Care Plan OB Reminders No Open Scheduling, Background documented as of this encounter Procedures Procedure Name Priority Date/Time Associated Diagnosis Comments URINALYSIS REFLEX STAT 12/02/2024 11: 40 PM EDT documented in this encounter Results * (ABNORMAL) Urinalysis with reflex microscopic (12/02/2024 11:40 PM EDT) COLOR,URINE Light-Yellow Yellow 12/03/2024 12:00 AM EDT [facility] APPEARANCE,URI NE Clear Clear 12/03/2024 12:00 AM EDT [facility] SPECIFICY GRAVITY,URINE 1.017 1.001 - 1.030 12/03/2024 12:00 AM EDT [facility] PH,URINE 5.5 5.0 - 9.0 12/03/2024 12:00 AM EDT [facility] LEUKOCYTE ESTERASE,URINE Negative Negative 12/03/2024 12:00 AM EDT [facility] NITRITE,URINE Negative Negative 12/03/2024 12:00 AM EDT [facility] PROTEIN,URINE Negative Negative mg/dL 12/03/2024 12:00 AM EDT [facility] GLUCOSE,URINE (UA) Normal Normal mg/dL 12/03/2024 12:00 AM EDT [facility] KETONES,URINE Negative Negative 12/03/2024 12:00 AM EDT [facility] UROBILINOGEN,U RINE Normal Normal mg/dL 12/03/2024 12:00 AM EDT [facility] BILIRUBIN,URIN E Negative Negative 12/03/2024 12:00 AM EDT [facility] OCCULT BLOOD,URINE 3+ Negative 12/03/2024 12:00 AM EDT [facility] RBC,URINE 1-2 0 - 4 [HPF] 12/[facility]-2 0 - 4 [HPF] 12/03/2024 12:17 AM EDT [facility] SQUAMOUS EPITHELIAL CELL,URINE 1-2 0 - 2 [HPF] 12/03/2024 12:17 AM EDT [facility] BACTERIA,URINE 1+ None Seen [HPF] 12/03/2024 12:17 AM EDT [facility] HYALINE CASTS,URINE None 0 - 8 [LPF] 12/03/2024 12[facility] MUCUS,[facility] 1+(AA) [LPF] 12/03/2024 12:17 AM [facility] Other 12/02/2024 11:4 0 PM EDT 12/02/2024 11:49 PM EDT Narrative [facility] - 12/03/2024 12:17 AM EDT Comment c/o urinary symptoms or increased blood pressure Name Collection Type:: Voided us Eduardo Cruz DO LAB URINE ORDERABLES Final Re sult [facility] [address] [place] [address], [facility] [address] [place] [address] documented in this encounter Visit Diagnoses Not on filedocumented in this encounter Additional Health Concerns Active Problems Noted Date Diagnosed Date OB Reminders 10/22/2024 documented as of this encounter Care Teams Agent Contract Clerk Relationship Specialty Start Date End Date Amanda Ford NP [facility] [place] [address] PCP - General Family Medicine 01/17/23 documented as of this encounter
--- OUTSIDE RECORDS SUMMARY | 2024-12-15 23:20 | XMS_ITS | Encounter Summary ---
Author Organization [facility] Address [address] [place] [address] Care Team Providers Care Property Insurance Claims Examiner Name Role Phone Jovaninikkie Amanda Nikole SCRAP BREAKER Primary Care Provider Encounter Details Date Type Department Care Team (Late Contact Info) Description 10/17/2024 Abstract [facility] [address] [place] [address] Les Martinez DO [address] [facility] [address] [place] [place], [place] [address] Social History Tobacco Use Types Packs/Day Years [...] Info) Description 12/19/2024 10:00 AM EDT Routine [facility] [address] [place] [phone] Jojo Ames PA [address] [facility] [place] [place] [address] 02/20/2025 1:00 PM EST Office Visit [facility] [address] [facility] [place] [address] Les Martinez DO [address] [facility] [address] [place] [place], [place] [id number] 08/21/2025 9:30 AM EDT Office Visit [facility] [place] [facility] [address] [place] [phone] Darleen Sinclair MD [address] [place] [address] documented as of this encounter Visit Diagnoses Not on filedocumented in this encounter Care Teams Property Insurance Claims Examiner Relationship Specialty Start Date End Date Amanda Ford NP [address] [facility] [place] [id number] PCP - General Family Medicine 01/17/23 documented as of this encounter
--- OUTSIDE RECORDS SUMMARY | 2024-12-15 23:20 | XMS_ITS | Encounter Summary ---
Author Organization [facility] Address [address] [place] [address] Care Team Providers Care Sleeve Setter Lockstitch Name Role Phone Logan Amanda Nikole CHANNEL ACCOUNT MANAGER Primary Care Provider Encounter Details Date Type Department Care Team (Late Contact Info) Description 10/22/2024 Abstract [facility] [address] [facility] [place] [address] Veronica Babcockraliang [place] Social History Tobacco Use Types Packs/Day Years [...] Routine [facility] [address] [facility] [place] [address] Jojo Ames PA [address] [facility] [place] [address] 02/20/2025 1:00 PM EST Office Visit [facility] [place] [facility] [address] [facility] [place] [phone] Les Martinez DO [address] [facility] [place] [address] 08/21/2025 9:30 AM EDT Office Visit [facility] [address] [place] [address] Darleen Sinclair MD [address] [place] [address] documented as of this encounter Goals Goal Patient Goal Type Associated Problems Recent Progress Patient-Stated? Author Reminders Care Plan OB Reminders No Open Scheduling, Background documented as of this encounter Visit Diagnoses Not on filedocumented in this encounter Additional Health Concerns Active Problems Noted Date Diagnosed Date OB Reminders 10/22/2024 documented as of this encounter Care Teams Sleeve Setter Lockstitch Relationship Specialty Start Date End Date Amanda Ford NP [facility] [facility] [place] [address] PCP - General Family Medicine 01/17/23 documented as of this encounter
--- OUTSIDE RECORDS SUMMARY | 2024-12-15 23:20 | XMS_ITS | Encounter Summary ---
Author Organization [facility] Address [address] [facility] [address], [address] [place] [address] Care Team Providers Care Apprentice Cosmetologist Name Role Phone Robin Marquez MD Primary Care Provider [phone] Reason for Visit * Reason Comments Medication Refill Encounter Details Date Type Department Care Team (Late st Contact Info) Description 03/08/[address] [facility] [address] [place] [address] [place] [phone] Christina Arreguin, ENTEROSTOMAL THERAPY NURSE - INTERNAL CONTROLS MANAGER Medication Refill Social History Tobacco Use Types [...] documented as of this encounter Care Teams Apprentice Cosmetologist Relationship Specialty Start Date End Date Robin Marquez MD [address] [place] [address] PCP - General Family Medicine 10/10/18 documented as of this encounter
--- OUTSIDE RECORDS SUMMARY | 2024-12-15 23:20 | XMS_ITS | Encounter Summary ---
Author Organization [facility] Address [address] [place] [address] Care Team Providers Care Bakery Associate Name Role Phone Unavailable Primary Care Provider [...] Description 05/09/2024 Patient Msg Reproductive Endocrinology Infertility [address] [place] [address] Shelly Hernandez APRN.MANAGER CASH [address] [place] [address] Summary of Next Steps Social History Tobacco Use Types Packs/Day Years Used Date Smoking Tobacco: Never Assessed Area Deprivation Index Answer Date Claudio rded National Score (1-100), lower number is lower ri sk 82 02/28/2024 State Score (1-10), lower number is lower risk 7 02/28/2024 Data from: https://www.neighborhoodatlas.medicine.[facility].edu/. Last address used for calculation [address] [...]
--- OUTSIDE RECORDS SUMMARY | 2024-12-15 23:20 | XMS_ITS | Encounter Summary ---
Author Organization [facility] Address [address] [place] [address] Care Team Providers Care Seal Mixer Name Role Phone Jovaninikkie Amanda Nikole MAID SUPERVISOR Primary Care Provider Encounter Details Date Type Department Care Team (Late Contact Info) Description 09/20/2024 Abstract [facility] [address] [place] [address] Les Martinez DO [address] [facility] [address] [place], [place] [address] Social History Tobacco Use Types Packs/Day Years [...] 10:00 AM EDT Routine [facility] [address] [facility] [place] [phone] Jojo Ames PA [address] [place] [address] 02/20/2025 1:00 PM EST Office Visit [facility] [address] [facility] [place] [address] Les Martinez DO [address] [facility] [address] [place], [place] [id number] 08/21/2025 9:30 AM EDT Office Visit [facility] [place] [facility] [address] [place] [phone] Darleen Sinclair MD [address] [place] [address] documented as of this encounter Visit Diagnoses Not on filedocumented in this encounter Care Teams Seal Mixer Relationship Specialty Start Date End Date Amanda Ford NP [address] [facility] [place] [id number] PCP - General Family Medicine 01/17/23 documented as of this encounter
--- OUTSIDE RECORDS SUMMARY | 2024-12-15 23:20 | XMS_ITS | Clinical Summary ---
Author Organization [facility] Address [address] [place] [address] Care Team Providers Care C Unix Developer Name Role Phone Amanda Ford TOBACCO SAMPLER Primary Care Provider Allergies Active Allergy Reactions Criticality Noted Date Comments Nsaids Unknown High 01/17/2023 Patient had gastric bypass surgery in April 2020. Medications docusate sodium (Colace) 100 MG capsule 1 (one) time each day at the same time 06/17/2022 Active lansoprazole (Prevacid) [address] capsule Take 30 mg by mouth Daily Active QUEtiapine (SEROquel) 25 MG tablet Take 25 mg by mouth at bedtime Active levothyroxine (Synthroid, Levoxyl) 50 MCG tabletIndicatio ns:Nontoxic goiter Take 1 tablet (50 mcg) by mouth in the morning. Take before meals. 90 tablet 3 08/22/2024 Active sertraline (Zoloft) 25 MG tablet Take 25 mg by mouth 1 (one) time each day at the same time 09/25/2024 Active ProFe 391.3 (180 Fe) MG capsuleIndicati ons:Other iron deficiency anemia TAKE 1 CAPSULE BY MOUTH TWICE DAILY IN THE MORNING AND BEFORE BEDTIME 60 capsule 3 11/06/2024 Active Active Problems Problem Noted Date Diagnosed Date Anovulation 11/28/2023 Estimated Date of Delivery Comme nts Yes 04/23/2025 Based on Est. Da te of Conception Encounters Date Type Department Care Team Description 12/12/2024 Travel 12/05/2024 External Result Encounter [facility] [address] [place] [address] Basim Martinez, 12/04/2024 8:30 AM EDT Ancillary Procedure [facility] [address] [place] [address] Screening, , for anatomic survey ([facility]) 12/02/2024 External Result Encounter [facility] External Department Unsolicited Eduardo Cruz, DO 11/30/2024 Telephone [facility] [address] [place] [address] Lisa Campbell LPN 11/20/2024 8:40 AM EDT Routine [facility] [address] [place] [address] Basim Martinez, Well woman exam with routine gynecological exam; Exposure to STD; Second trimester ([facility]); 18 weeks gestation of ([facility]); Need for maternal serum alpha-protein (MSAFP) screening ([facility]); Screening, , for anatomic survey ([facility]); Thyroid disease 11/20/2024 External Result Encounter [facility] External Department Unsolicited Basim Martinez, 11/20/2024 Clinisync Result Encounter [facility] External Department Unsolicited Basim Martinez, 11/20/2024 Bamboo flowsheet [facility] [address] [place] [address] Basim Martinez, 11/05/2024 Refill [facility] [address] [place] [address] Basim Martinez, Other iron deficiency anemia 10/22/2024 11:20 AM EDT Routine [facility] [address] [place] [address] Basim Martinez, DO 13 weeks gestation of ([facility]); Second trimester ([facility]); Thyroid disease ; H/O gastric sleeve; H/O iron deficiency anemia; resulting from in vitro fertilization in first trimester ([facility]) 10/22/2024 Abstract [facility] [address] [place] [address] [place]rie [place], [place] 10/22/2024 Abstract [facility] [address] [place] [address] Garfield Bab[place], [place] 10/22/2024 Abstract [facility] [address] [place] [address] Kerrie Babcock [place] 10/21/2024 Travel 10/18/2024 Telephone [facility] [address] [place] [address] Basim Martinez, 10/17/2024 Abstract [facility] [address] [place] [address] Basim Martinez, 10/10/2024 Clinisync Result Encounter [facility] External Department Unsolicited Basim Martinez, 09/26/2024 Telephone [facility] [address] [place] [address] Kerrie [place], [place] 09/20/2024 2:30 PM EDT Initial [facility] [address] [place] [address] GA: 9w2d 09/20/2024 2:00 PM EDT Ancillary Procedure [facility] [address] [place] [address] Missed menses 09/20/2024 Abstract [facility] [address] [place] [place] [phone] Basim Martinez DO from Last 3 Months Immunizations Immunization Administration [...] AM EDT Routine [facility] [address] [place] [phone] Jojo Ames PA [address] [place], [place] [id number] 02/20/2025 1:00 PM EST Office Visit [facility] [address] [place] [address] Basim Martinez, [address] [place] [address] 08/21/2025 9:30 AM EDT Office Visit [facility] [address] [place] [address] Darleen Sinclair MD [address], [address] [place] [address] Health Maintenance Due Date Last Done Comments Influenza Vaccine (#1) 2024 Goals Goal Patient Goal Type Associated Problems Recent Progress Patient-Stated? Author Reminders Care Plan OB Reminders No Open Scheduling, Background Procedures Procedure Name Priority Date/Time Associated Diagnosis Comments US OB 14+ WEEKS ANATOMY SCAN 12/05/2024 4:12 PM EDT US OB 14+ WEEKS ANATOMY SCAN Routine 12/04/2024 9:26 AM EDT Screening, , for anatomic survey ([facility]) URINALYSIS REFLEX STAT 12/02/2024 11: 40 PM EDT RECURRENT VAGINITIS (HTRX) Routine 11/20/2024 10:51 AM EDT AFP, SERUM, OPEN SPINA BIFIDA Routine 11/20/2024 10:37 AM EDT ALL THYROID STIM HORMONE Routine 11/20/2024 10:37 AM EDT POCT URINALYSIS DIPSTICK Routine 11/20/2024 9:12 AM EDT Second trimester [facility]) POCT URINALYSIS DIPSTICK Routine 10/22/2024 11:41 AM EDT 13 weeks gestation of ([facility]) Second trimester ([facility]) BOX TEST Routine 10/10/2024 11:18 AM EDT POCT URINALYSIS DIPSTICK Routine 09/20/2024 3:08 PM EDT Missed menses POCT , URINE Routine 09/20/2024 3:08 PM EDT Missed menses US OB TRANSVAGINAL Routine 09/20/2024 2: 24 PM EDT Missed menses from Last 3 Months Results * US OB 14+ weeks anatomy scan (12/05/2024 4:12 PM EDT) Only the most recent of2 resultswithin the time period is included. Anatomical Region Laterality Modality Body Ultrasound 12/05/2024 4:12 PM EDT Narrative 12/05/2024 4:11 PM EDT THIS EXAM WAS PERFORMED AT [facility] NAME: MARIA EUGENIA HINDS : 1995 SEX: F Accession Number: [id number] ORDERING PHYSICIAN: ENRIKE LINDQUIST REFERRING PHYSICIAN: BASIM MARTINEZ Coding ----- --------- Procedures [id number]: Ultrasound, uterus, real time with image documentation, and maternal evaluation plus detailed anatomic examination, transabdominal approach;single or first gestation 97672: Transvaginal Ultrasound (OB) Indication ----- --------- Screening for Anatomic Survey, Screening for cervical length, resulting from assisted reproductive technology- IUI, History of Gastric sleeve, Obesity in . History ----- --------- OB History 1. Para 0 [id number] Current ----- --------- Cell free DNA low risk analysis Maternal Assessment ----- --------- Physical Exam Height 180 cm, 5 ft 11 in. Weight 117 kg, 257 lb. Initial weight 102 kg, 224 lb. BMI 35.84 kg/m???. Initial BMI 31.24 kg/m???. Weight gain 15 kg, 33 lb Method [...] EFW (oz) 14 oz EFW by: Hadlock ([id number]) Extended Tibia 27.0 mm 19w 5d 43% Gayle Scorekeeper 8.2 mm CM 4.2 mm 24% Nicolaides [...] Thorax RVOT view. LVOT view. 3-vessel view. 5-akojht-dwnbfqu view. Bicaval view. Ductal arch view. Great [...] primary OB provider unless otherwise specified by M. Results forwarded to ordering provider so they can follow up with the patient as necessary. The copy-to physician of this order is BASIM Herring The ordering physician of this order is ENRIKE Alfaro Procedure Note Radiology, Radiologist, MD - 12/05/2024 THIS EXAM WAS PERFORMED AT [facility] NAME: MARIA EUGENIA HINDS : 1995 SEX: F Accession Number: [id number] ORDERING PHYSICIAN: ENRIKE LINDQUIST REFERRING PHYSICIAN: BASIM MARTINEZ Coding ----- --------- Procedures 08767: Ultrasound, uterus, real time with imagedocumentation, and maternal evaluation plus detailed anatomic examination, transabdominalapproach;single or first gestation 29782: Transvaginal Ultrasound (OB) Indication ----- --------- Screening for Anatomic Survey, Screening for cervical length, Pregnancyresulting from assisted reproductive technology- IUI, History of Gastric sleeve, Obesity in . History ----- --------- OB History 1. Para 0 [id number] Current ----- --------- Cell free DNA low risk analysis Maternal Assessment ----- --------- Physical Exam Height 180 cm, 5 ft 11 in. Weight 117 kg, 257 lb. Initialweight 102 kg, 224 lb. BMI 35.84 kg/m???. Initial BMI 31.24 kg/m???. Weight gain 15 kg, 33 lb Method [...] EFW (oz) 14 oz EFW by: Hadlock ([id number]) Extended Tibia 27.0 mm 19w 5d 43% Gayle Scorekeeper 8.2 mm CM 4.2 mm 24% Nicolaides [...] Thorax RVOT view. LVOT view. 3-vessel view. 9-hrtjoj-hwybfzy view.Bicaval view. Ductal arch view. Great vessels. [...] 5.2 cm. Recommendations ----- --------- Please see [facility] documentation from today. The patient is scheduled in four to six week(s) to complete anatomicsurvey. Subsequent follow up or other follow up as clinically determined byprimary OB provider unless otherwise specified by [facility]. Results forwarded to ordering provider so they can follow up with thepatient as necessary. The copy-to physician of this order is BASIM Herring The ordering physician of this order is ENRIKE Alfaro us Basim Martinez DO [facility] OB US PROCEDURES Final Resul t * (ABNORMAL) Urinalysis with reflex microscopic (12/02/2024 11:40 PM EDT) COLOR,URINE Light-Yellow Yellow 12/03/2024 12:00 AM [facility] APPEARANCE,URI NE Clear Clear 12/03/2024 12:00 AM [facility] SPECIFICY GRAVITY,URINE 1.017 1.001 - 1.030 12/03/2024 12:00 AM [facility] PH,URINE 5.5 5.0 - 9.0 12/03/2024 12:00 AM [facility] LEUKOCYTE ESTERASE,URINE Negative Negative 12/03/2024 12:00 AM [facility] NITRITE,URINE Negative Negative 12/03/2024 12:00 AM [facility] PROTEIN,URINE Negative Negative mg/dL 12/03/2024 12:00 AM [facility] GLUCOSE,URINE (UA) Normal Normal mg/dL 12/03/2024 12:00 AM [facility] KETONES,URINE Negative Negative 12/03/2024 12:00 AM [facility] UROBILINOGEN,U RINE Normal Normal mg/dL 12/03/2024 12:00 AM [facility] BILIRUBIN,URIN E Negative Negative 12/03/2024 12:00 AM [facility] OCCULT BLOOD,URINE 3+ Negative 12/03/2024 12:00 AM [facility] RBC,URINE 1-2 0 - 4 [HPF] 12/03/2024 12:17 AM [facility] WBC,URINE 1-2 0 - 4 [HPF] 12/03/2024 12:17 AM [facility] SQUAMOUS EPITHELIAL CELL,URINE 1-2 0 - 2 [HPF] 12/03/2024 12:17 AM [facility] BACTERIA,URINE 1+ None Seen [HPF] 12/03/2024 12:17 AM [facility] HYALINE CASTS,URINE None 0 - 8 [LPF] 12/03/2024 12:17 AM [facility] MUCUS,URINE 1+(AA) [LPF] 12/03/2024 12:17 AM EDT [facility] Other 12/02/2024 11:4 0 PM EDT 12/02/2024 11:49 PM EDT Narrative [facility] - 12/03/2024 12:17 AM EDT Comment c/o urinary symptoms or increased blood pressure Name Collection Type:: Voided us Eduardo Cruz DO LAB URINE ORDERABLES Final Re sult [facility] [address] [place] [address], [facility] [address] [place] [address] * RECURRENT VAGINITIS (HTRX) (11/20/2024 10:51 AM EDT) [facility] ATOPOBIUM VAGINAE 0 19.961 - 24.689 ppm 11/21/2024 5:57 AM EDT [facility] ATOPOBIUM VAGINAE Not Detected 19.961 - 24.689 ppm 11/21/2024 5:57 AM EDT [facility] BVAB 2,3 (BACTERIAL VAGINOSIS ASSOCIATED BACTERIA 2, 3); MOBILUNCUS SPP 0 19.961 - 24.689 ppm 11/21/2024 5:57 AM EDT [facility] BVAB 2,3 (BACTERIAL VAGINOSIS ASSOCIATED BACTERIA 2, 3); MOBILUNCUS SPP Not Detected 19.961 - 24.689 ppm 11/21/2024 5:57 AM EDT [facility] GLORIA ALBICANS, PARAPSILOSIS, TROPICALIS 0 23.000 - 30.347 ppm 11/21/2024 5:57 AM EDT [facility] GLORIA ALBICANS, PARAPSILOSIS, TROPICALIS Not Detected 23.000 - 30.347 ppm 11/21/2024 5:57 AM EDT [facility] GLORIA GLABRATA 0 23.000 - 31.618 ppm 11/21/2024 5:57 AM EDT [facility] GLORIA GLABRATA Not Detected 23.000 - 31.618 ppm 11/21/2024 5:57 AM EDT [facility] GLORIA KRUSEI 0 23.000 - 30.873 ppm 11/21/2024 5:57 AM EDT [facility] GLORIA KRUSEI Not Detected 23.000 - 30.873 ppm 11/21/2024 5:57 AM EDT [facility] CHLAMYDIA TRACHOMATIS 0 23.000 - 31.586 ppm 11/21/2024 5:57 AM EDT [facility] CHLAMYDIA TRACHOMATIS Not Detected 23.000 - 31.586 ppm 11/21/2024 5:57 AM EDT [facility] GARDNERELLA VAGINALIS 0 19.961 - 24.689 ppm 11/21/2024 5:57 AM EDT [facility] GARDNERELLA VAGINALIS Not Detected 19.961 - 24.689 ppm 11/21/2024 5:57 AM EDT [facility] MEGASPHAERA (TYPES 1, 2) 0 19.961 - 24.689 ppm 11/21/2024 5:57 AM EDT [facility] MEGASPHAERA (TYPES 1, 2) Not Detected 19.961 - 24.689 ppm 11/21/2024 5:57 AM EDT [facility] NEISSERIA GONORRHOEAE 0 23.000 - 32.587 ppm 11/21/2024 5:57 AM EDT [facility] NEISSERIA GONORRHOEAE Not Detected 23.000 - 32.587 ppm 11/21/2024 5:57 AM EDT [facility] TRICHOMONAS VAGINALIS 0 23.000 - 31.995 ppm 11/21/2024 5:57 AM EDT [facility] TRICHOMONAS VAGINALIS Not Detected 23.000 - 31.995 ppm 11/21/2024 5:57 AM EDT [facility] MYCOPLASMA GENITALIUM 0 19.961 - 24.689 ppm 11/21/2024 5:57 AM EDT [facility] MYCOPLASMA GENITALIUM Not Detected 19.961 - 24.689 ppm 11/21/2024 5:57 AM EDT [facility] Tissue 11/20/2024 10:5 1 AM EDT 11/21/2024 1:16 AM EDT Basim Martinez DO LAB BLOOD ORDERABLES Final Resul t [facility] [address] [address] * AFP, SERUM, OPEN SPINA BIFIDA (11/20/2024 10:37 AM EDT) RESULTS Report . [facility] TEST RESULTS: *Screen Negative* . [facility] GEST. AGE ON COLLECTION DATE 18.0 . weeks [facility] GESTAT. AGE BASED ON Ultrasound . [facility] Comment: 18.0 on 11/20/2024 Recalculations are not recommended when gestational dating by LMP and ultrasound are within 10 days. [age] [facility] RACE Other . [facility] WEIGHT 256 . lbs [facility] INSULIN DEP DIABETES No . TB MULTIPLE GESTATION No . [facility] AFP VALUE 27.6 . ng/mL [facility] AFP MOM 0.87 . [facility] [place] [address] . [facility] INTERPRETATION Comment . [facility] Comment: Interpretation: Screen Negative This result is [...] Customer Services to discuss available options. The [employer] [employer] recommends amniocentesis be offered to women age 35 and older. COMMENT: Comment . [facility] Comment: Gisel Gandhi, Ph.D., [facility] Director References: Available Upon Request. Multiples Of Median Cutoffs For AFP Elevations [place] 2.5 Black 2.8 IDD 2.0 Twins 4.5 Abbreviation Definitions IDD - Insulin Dep Diabetes OSBR - Open Spina Bifida Risk For further inquiries contact [facility] at [phone]. This test was developed and its performance characteristics determined by [employer]. It has not been cleared or approved by the Food and Drug Administration. Performed at: [facility] [address] [place], [place] [id number] Dog Day Care Attendant: Lorena Ellis Formerly [facility], Phone: [phone] 11/20/2024 10:3 7 AM EDT 11/20/2024 10:49 AM EDT Narrative [facility] - 11/22/2024 1:07 AM EDT N N ULTRASOUND [id number] 0 18 N 1 [address] N N White/ us Basim Juan DO LAB BLOOD ORDERABLES Final Resul t [facility] * ALL THYROID STIM HORMONE (11/20/2024 10:37 AM EDT) THYROID STIMULATING HORMONE 1.702 0.358 - 3.740 uIU/mL TB 11/20/2024 10:3 7 AM EDT 11/20/2024 10:49 AM EDT Narrative [facility] - 11/20/2024 11:26 AM EDT us Basim Juan DO [facility] Final Result [facility] * (ABNORMAL) POCT urinalysis dipstick [...] - 9 Protein, UA Negative Negative - 1999(20) ++++ mg/dL Urobilinogen, UA 1.0 0.2 - 12 mg/dL Leukocytes, UA 2+ Negative - 500+++ Kourtney/mcL Nitrite, UA Negative Negative - Positive Urine 11/20/2024 9:12 AM EDT us Basim Juan DO POINT OF CARE TEST ENTER/EDIT OR DERABLES Final Result * BOX TEST (10/10/2024 11:18 AM EDT) BOX TEST SENT OUT [facility] BOX1 [facility] BOX2 10-10-24 [facility] 10/10/2024 11:1 8 AM EDT 10/10/2024 11:22 AM EDT Narrative [facility] - 10/10/2024 11:23 AM EDT DULAC BOX us Basim Juan DO LAB BLOOD ORDERABLES Final Resul t [facility] * (ABNORMAL) POCT , urine manually resulted (09/20/2024 3:08 PM EDT) Preg Test, Ur Positive Negative Urine 09/20/2024 3:08 PM EDT us Basim Juan DO POINT OF CARE TEST ENTER/EDIT [...] II, MD, PHD at 21-Sep-2024 08:26:46 AM [facility] Procedure Note Edel Garcia MD - [...] signed by EDEL GARCIA II, MD, PHD [id number] 08:26:46 AM [facility] us Basim Martinez DO IMG OB US PROCEDURES Final Resul t from Last 3 Months Additional Health Concerns Active Problems Noted Date Diagnosed Date OB Reminders 10/22/2024 Insurance [employer] MEDICAID [place] Care Teams C Unix Developer Relationship Specialty Start Date End Date Amanda Ford NP [address] [facility] [place] [address] PCP - General Family Medicine 01/17/23
--- OUTSIDE RECORDS SUMMARY | 2024-12-15 23:20 | XMS_ITS | Encounter Summary ---
Author Organization [facility] Address [address] [place] [address] Care Team Providers Care Kiln Repairer Name Role Phone Logan Amanda Nikole BLACK TOP ROLLER Primary Care Provider Encounter Details Date Type Department Care Team (Late Contact Info) Description 12/05/2024 External Result Encounter [facility] [address] [place] [phone] Basim Martinez DO [address] [place], [place] [id number] Social History Tobacco Use Types Packs/Day Years [...] 10:00 AM EDT Routine [facility] [address] [place] [address] Jojo Ames PA [address] [place] [address] 02/20/2025 1:00 PM EST Office Visit [facility] [address] [address] Basim Martinez, [address] [place] [address] 08/21/2025 9:30 AM EDT Office Visit [facility] [address] [place] [phone] Darleen Sinclair MD [address] [place] [address] documented as of this encounter Goals Goal Patient Goal Type Associated Problems Recent Progress Patient-Stated? Author Reminders Care Plan OB Reminders No Open Scheduling, Background documented as of this encounter Procedures Procedure Name Priority Date/Time Associated Diagnosis Comments US OB 14+ WEEKS ANATOMY SCAN 12/05/2024 4:12 PM EDT documented in this encounter Results * US OB 14+ weeks anatomy scan (12/05/2024 4:12 PM EDT) Anatomical Region Laterality Modality Body Ultrasound 12/05/2024 4:12 PM EDT Narrative 12/05/2024 4:11 PM EDT THIS EXAM WAS PERFORMED AT [facility] NAME: MARIA EUGENIA HINDS : 1995 SEX: F Accession Number: [id number] ORDERING PHYSICIAN: ENRIKE LINDQUIST REFERRING PHYSICIAN: BASIM MARTINEZ Coding ----- --------- Procedures [id number]: Ultrasound, uterus, real time with image documentation, and maternal evaluation plus detailed anatomic examination, transabdominal approach;single or first gestation 95545: Transvaginal Ultrasound (OB) Indication ----- --------- Screening for Anatomic Survey, Screening for cervical length, resulting from assisted reproductive technology- IUI, History of Gastric sleeve, Obesity in . History ----- --------- OB History 1. Para 0 [id number] Current ----- --------- Cell free DNA low [...] EFW (oz) 14 oz EFW by: Hadlock ([id number]) Extended Tibia 27.0 mm 19w 5d 43% Gayle Restaurant Attendant 8.2 mm CM 4.2 mm 24% Nicolaides [...] Thorax RVOT view. LVOT view. 3-vessel view. 3-bhkyqb-rcmqzhk view. Bicaval view. Ductal arch view. Great [...] 5.2 cm. Recommendations ----- --------- Please see [facility] documentation from today. The patient is scheduled in four to six week(s) to complete anatomic survey. Subsequent follow up or other follow up as clinically determined by primary OB provider unless otherwise specified by [facility]. Results forwarded to ordering provider so they can follow up with the patient as necessary. The copy-to physician of this order is BASIM Herring The ordering physician of this order is ENRIKE Alfaro Procedure Note Radiology, Radiologist, - 12/05/2024 THIS EXAM WAS PERFORMED AT [facility] NAME: MARIA EUGENIA HINDS : 1995 SEX: F Accession Number: [id number] ORDERING PHYSICIAN: ENRIKE LINDQUIST REFERRING PHYSICIAN: BASIM MARTINEZ Coding ----- --------- Procedures 06152: Ultrasound, uterus, real time with imagedocumentation, and maternal evaluation plus detailed anatomic examination, transabdominalapproach;single or first gestation 84895: Transvaginal Ultrasound (OB) Indication ----- --------- Screening for Anatomic Survey, Screening for cervical length, Pregnancyresulting from assisted reproductive technology- IUI, History of Gastric sleeve, Obesity in . History ----- --------- OB History 1. Para 0 [id number] Current ----- --------- Cell free DNA low [...] EFW (oz) 14 oz EFW by: Hadlock ([id number]) Extended Tibia 27.0 mm 19w 5d 43% Gayle Restaurant Attendant 8.2 mm CM 4.2 mm 24% Nicolaides Nasal bone 5.4 mm 6% [employer] Head / Face / Neck Cephalic index [...] Thorax RVOT view. LVOT view. 3-vessel view. 1-kqxfme-arztyyt view.Bicaval view. Ductal arch view. Great vessels. [...] byprimary OB provider unless otherwise specified by M. Results forwarded to ordering provider so they can follow up with thepatient as necessary. The copy-to physician of this order is BASIM Herring The ordering physician of this order is ENRIKE Alfaro us Basim Martinez DO IMG OB US PROCEDURES Final Resul t documented in this encounter Visit Diagnoses Not on filedocumented in this encounter Additional Health Concerns Active Problems Noted Date Diagnosed Date OB Reminders 10/22/2024 documented as of this encounter Care Teams Kiln Repairer Relationship Specialty Start Date End Date Amanda Ford NP [facility] [place] [id number] PCP - General Family Medicine 01/17/23 documented as of this encounter
--- OUTSIDE RECORDS SUMMARY | 2024-12-15 23:20 | XMS_ITS | Encounter Summary ---
Author Organization [facility] Address [address] [place] [address] Care Team Providers Care Sports Management Internship Name Role Phone Logan Amanda Nikole NOVELTIES SALES REPRESENTATIVE Primary Care Provider Encounter Details Date Type Department Care Team (Late Contact Info) Description 10/22/2024 Abstract [facility] HERNANDEZ [address] [place] [address] Veronica Babcockraliang ID Social History Tobacco Use Types Packs/Day Years [...] AM EDT Routine [facility] HERNANDEZ [address] [place] [address] Jojo Ames PA [address] [facility] [place] [address] 02/20/2025 1:00 PM EST Office Visit [facility] [place] [facility] [address] [place] [address] Les Martinez DO [address] [facility] [facility] [place] [address] 08/21/2025 9:30 AM EDT Office Visit [facility] [address] [place] [address] Darleen Sinclair MD [address] [place] [address] documented as of this encounter Goals Goal Patient Goal Type Associated Problems Recent Progress Patient-Stated? Author Reminders Care Plan OB Reminders No Open Scheduling, Background documented as of this encounter Visit Diagnoses Not on filedocumented in this encounter Additional Health Concerns Active Problems Noted Date Diagnosed Date OB Reminders 10/22/2024 documented as of this encounter Care Teams Sports Management Internship Relationship Specialty Start Date End Date Amanda Ford NP [facility] [place] [address] PCP - General Family Medicine 01/17/23 documented as of this encounter
--- OUTSIDE RECORDS SUMMARY | 2024-12-15 23:20 | XMS_ITS | Patient Health Record ---
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) Active confirmed Problem Information temporarily unavailable Anxiety state, unspecified (F41.1) Active confirmed Problem Information temporarily unavailable High risk medications (not anticoagulants) long-term use (Z79.899) Active confirmed Problem Information temporarily unavailable Bipolar disorder, current episode manic without psychotic features, mild (F31.11) Active confirmed Vital Signs Heart Rate 84 /min 10/24/2024 Oximetry 98 % 10/24/2024 Blood pressure diastolic 68 mm Hg 10/24/2024 Height 71 in 10/24/2024 Blood pressure systolic 124 mm Hg 10/24/2024 Weight 218.2 lbs 10/24/2024 BMI 30.43 kg/m2 10/24/2024 Encounters Encounter Location Date Provider Diagnosis [facility] [address] [place] [address] 01/25/2024 [facility] [address] [place] [address] 02/24/2024 [place] [address] [place] [address] 05/10/2024 Julieta Jefferson Bipolar disorder, current episode manic without psychotic features, mild F31.11 and Anxiety state, unspecified F41.1 [place] [address] [place] [address] 05/24/2024 Julieta Jefferson Bipolar disorder, current episode manic without psychotic features, mild F31.11 [facility] [address] [place] [address] 01/25/2024 Julieta Jefferson Bipolar disorder, current episode manic without psychotic features, mild F31.11 [facility] [address] [facility] [address] 04/25/2024 Julieta Jefferson Bipolar disorder, current episode manic without psychotic features, mild F31.11 and Anxiety state, unspecified F41.1 [facility] [address] [facility] [place] [address] 08/24/2024 Jennifer Hahn Bipolar disorder, current episode manic without psychotic features, mild F31.11 and Anxiety state, unspecified F41.1 [facility] [address] [facility] [place] [address] 09/25/2024 Jennifer Hahn Bipolar disorder, current episode manic without psychotic features, mild F31.11 [facility] [address] [facility] [place] [address] 10/24/2024 Jennifer Hahn Bipolar disorder, current episode [...] - F31.11) cont current treatment transfer to [facility] pharmacy . . Informed consent obtained: YES, we discussed the diagnosis/diagnoses , the treatment options, treatment(s) recommended vs. no treatment. We discussed risks and benefits of treatment options, treatment recommendations vs. no treatment. . . Discussed lifestyle/diet changes to help improve BMI. Recommend increasing activity, reducing portion sizes, limiting carbohydrates, increasing protein as appropriate. Discussed referral to gummed tape press operator if problem persists. . . Second generation antipsychotic medications can cause headache, drowsiness, agitation, dizziness, nausea, or extrapyramidal symptoms such as tremors, muscle spasms, slowness of movement or jerking of muscles. . . Currently at low risk for self harm. Denies ongoing feelings of hopelessness. Denies ongoing suicidal ideation, intent or plan in session. . 08/24/2024 Anxiety state, unspecified (ICD-10 - F41.1) 05/24/2024 Bipolar disorder, current episode manic without psychotic features, mild (ICD-10 - F31.11) 01/25/2024 Bipolar disorder, current episode manic without [...] increasing protein as appropriate. Discussed referral to gummed tape press operator if problem persists. . . Continue [...] Insured Coverage Start Date Coverage End Date [facility] [address] [place] [address] [id number] GUZMAN DEL CID Self - patient is the insured 3 [facility] [address] [place] [address] [id number] MARIA EUGENIA GUZMAN Self - patient is the insured 3 [facility] [address] [place] [address] [id number] MARIA EUGENIA GUZMAN Self - patient is the insured 1 2 [facility] [employer]AGE -termed 22 [address] [place] [address] [id number] GUZMAN DEL CID Self - patient is the insured 1 3 [employer] MEDICAID [employer] after [employer]AMOUNT -termed 22 [address] [place] [address] [id number] GUZMAN DEL CID Self - patient is the insured 1 3 Medical (General) History Medical History History ICD Code obesity bipolar hypothyroid Surgical History Surgery Date(Month/Year) cholecystectomy gastric SLEEVE 04/2020
--- OUTSIDE RECORDS SUMMARY | 2024-12-15 23:20 | XMS_ITS | Encounter Summary ---
Author Organization [facility] Address [address] [place] [address] Care Team Providers Care Laser Technician Name Role Phone Amanda Ford PREP PERSON Primary Care Provider Encounter Details Date Type Department Care Team (Latest Contact Info) Description 12/12/2024 Travel Social History Tobacco Use Types Packs/Day Years [...] Routine [facility] HERNANDEZ [address] [place] [address] Jojo Ames PA [address] [place] [address] 02/20/2025 1:00 PM EST Office Visit [facility] HERNANDEZ [address] [place] [address] Les Martinez, [address] [facility] [place] [address] 08/21/2025 9:30 AM EDT Office Visit [facility] [place] [facility] [address] [place] [address] Darleen Sinclair MD [address] [place] [address] documented as of this encounter Goals Goal Patient Goal Type Associated Problems Recent Progress Patient-Stated? Author Reminders Care Plan OB Reminders No Open Scheduling, Background documented as of this encounter Visit Diagnoses Not on filedocumented in this encounter Additional Health Concerns Active Problems Noted Date Diagnosed Date OB Reminders 10/22/2024 documented as of this encounter Care Teams Laser Technician Relationship Specialty Start Date End Date Amanda Ford NP [facility] [place] [address] PCP - General Family Medicine 01/17/23 documented as of this encounter
--- OUTSIDE RECORDS SUMMARY | 2024-12-15 23:20 | XMS_ITS | Encounter Summary ---
Author Organization [facility] Address [address] [place] [address] Care Team Providers Care Pattern Painter Name Role Phone Logan Amanda Nikole PAN WASHER Primary Care Provider Encounter Details Date Type Department Care Team (Late Contact Info) Description 10/22/2024 Abstract [facility] HERNANDEZ [address] [facility] [place] [address] Veronica Babcockraliang ID Social History Tobacco [...] AM EDT Routine [facility] HERNANDEZ [address] [facility] [place] [address] Jojo Ames PA [address] [facility] [place] [address] 02/20/2025 1:00 PM EST Office Visit [facility] [place] [facility] [address] [facility] [place] [phone] Les Martinez DO [address] [facility] [place] [address] 08/21/2025 9:30 AM EDT Office Visit [facility] End[facility]in[facility] [address] [place] [address] Darleen Sinclair MD [address] [place] [address] documented as of this encounter Goals Goal Patient Goal Type Associated Problems Recent Progress Patient-Stated? Author Reminders Care Plan OB Reminders No Open Scheduling, Background documented as of this encounter Visit Diagnoses Not on filedocumented in this encounter Additional Health Concerns Active Problems Noted Date Diagnosed Date OB Reminders 10/22/2024 documented as of this encounter Care Teams Pattern Painter Relationship Specialty Start Date End Date Amanda Ford NP [facility] [place] [address] PCP - General Family Medicine 01/17/23 documented as of this encounter
--- OUTSIDE RECORDS SUMMARY | 2024-12-15 23:20 | XMS_ITS | Encounter Summary ---
Author Organization [facility] Address [address] [place] [address] Phone Care Team Providers Care Directory Compiler Name Role Phone Unavailable Primary Care Provider Unavailabl e Encounter Details Date Type Department Care Team (Late st Contact Info) Description 05/02/2024 Scanned Document Yelena Castanon Pavilimanisha [address] [place] [address] [address] [place] [address] [address] Department of BOX [place] [address] Social History Tobacco Use Types Packs/Day Years [...]
--- OUTSIDE RECORDS SUMMARY | 2024-12-15 23:20 | XMS_ITS | Encounter Summary ---
Author Organization [facility] Address [address] [place] [address] Care Team Providers Care Medicare Contact Specialist Name Role Phone RosarioAmanda de la fuente Nikole TREATING PLANT OPERATOR Primary Care Provider Encounter Details Date Type Department Care Team (Late Contact Info) Description 05/04/2023 Abstract [facility] HERNANDEZ [address] [facility] [place] [address] Lilibeth Green LPN [address] [place] [address] Social History Tobacco Use Types Packs/Day Years [...] 10:00 AM EDT Routine NOMMar[facility]a HERNANDEZ [address] [place] [address] Jojo Ames PA [address] [facility] [place] [address] 02/20/2025 1:00 PM EST Office Visit NOMMarixa HERNANDEZ [address] [place] [address] Les Martinez DO [address] [facility] [place] [address] 08/21/2025 9:30 AM EDT Office Visit [facility] End[facility]in[facility] [address] [place] [address] Darleen Sinclair MD [address] [place] [address] documented as of this encounter Visit Diagnoses Not on filedocumented in this encounter Care Teams Medicare Contact Specialist Relationship Specialty Start Date End Date Amanda Ford NP [address] [place] [address] [place] [address] PCP - General Family Medicine 01/17/23 documented as of this encounter
--- OUTSIDE RECORDS SUMMARY | 2024-12-15 23:20 | XMS_ITS | Encounter Summary ---
Author Organization [facility] Address [address] [place] [address] Care Team Providers Care Women'S Health Care Nurse Practitioner Name Role Phone MerylAmanda cervantes Nikole SPECIMEN TRANSPORTER Primary Care Provider Encounter Details Date Type Department Care Team (Late st Contact Info) Description 03/02/2024 Orders Only [facility]OM[facility]a HERNANDEZ [address] [facility] [place] [address] Esperanza [place]if[place]lington, [place] [address] [facility] [place] [address] Social History Tobacco Use Types Packs/Day Years [...] 10:00 AM EDT Routine NOMMarixa HERNANDEZ [address] [facility] [place] [address] Jojo Ames PA [address] [facility] [place] [address] 02/20/2025 1:00 PM EST Office Visit NOMMarixa [place] OBNAOMIE [address] [facility] [place] [address] Les Martinez DO [address] [facility] [place] [address] 08/21/2025 9:30 AM EDT Office Visit [facility] [place] [facility] [address] [place] [address] Darleen Sinclair MD [address], [address] [place] [address] documented as of this encounter [...] on filedocumented in this encounter Care Teams Women'S Health Care Nurse Practitioner Relationship Specialty Start Date End Date Amanda Ford NP [address] [facility] [place] [address] PCP - General Family Medicine 01/17/23 documented as of this encounter
--- OUTSIDE RECORDS SUMMARY | 2024-12-15 23:20 | XMS_ITS | Clinical Summary ---
Author Organization [facility] Address [address] [place] [address] Care Team Providers Care Button Inspector Name Role Phone Unavailable Primary Care Provider [...] Problems Comments Yes No known active problems Family History Medical History Relation Comments Diabetes Maternal Grandfather HTN Maternal Grandfather Relation Status Comments Maternal Grandfather Social History Tobacco Use Types Packs/Day Years Used Date Smoking Tobacco: Never Assessed Area Deprivation Index Answer Date Claudio rded National Score (1-100), lower number is lower ri 82 02/28/2024 State Score (1-10), lower number is lower risk 7 02/28/2024 Data from: https://www.neighborhoodatlas.medicine.[facility].edu/. Last address used for calculation [address] 02/28/2024 Comments Yes Sex and Gender Information [...] Procedure Name Priority Date/Time Associated Diagnosis Comments HIV 1/2 COMBO WITH REFLEX TO DIFFERENTIATION Routine 04/02/2024 3:21 PM EST Special screening examination for infectious diseases HEPATITIS C ANTIBODY IA WITH CONFIRMATION Routine 04/02/2024 3:21 PM EST Special screening examination for infectious diseases from Last 3 Months or Most Recently Relevant to Health Maintenance Results * HIV 1/2 COMBO WITH REFLEX TO DIFFERENTIATION (04/02/2024 3:21 PM EST) HIV 12 Combo (Ag/Ab) Nonreactive Nonreactive 04/03/2024 12:27 PM EST [facility] HIV-1/2 AB (Confirmatory) 04/03/2024 12:27 PM EST [facility] Comment:Test not indicated. HIV Interpretation 04/03/2024 12:27 PM EST [facility] Comment: No evidence of HIV-1 or HIV-2 infection. Should recent infection be suspected, repeat testing may be considered 2-3 weeks after this draw. [place] Rev. Code 3701.243(E): This information has been [...] EST 04/02/2024 3:22 PM EST Shelly Hernandez HOOP DRIVING MACHINE OPERATOR HELPER.SYSTEM ANALYST LABORATORY Final Result Performing Organization Address City/[facility]/ZIP Co de Phone Number [facility] [address] * HEPATITIS C ANTIBODY IA WITH CONFIRMATION (04/02/2024 3:21 PM EST) Hep C Antibody IA Negative Negative 04/03/2024 11:20 AM EST [facility] Comment:The result suggests no evidence of active infection with Hepatitis C virus. Should recent infection be suspected, repeat testing may be considered 4-6 weeks after this draw. Blood BLOOD SPECIMEN / Unknown Venipuncture / Unknown 04/02/2024 3:21 PM EST 04/02/2024 3:22 PM EST Shelly Hernandez APRN.SYSTEM ANALYST LABORATORY Final Result Performing Organization Address City/[facility]/ZIP Co de Phone Number [facility] [address] from Last 3 Months or Most Recently Relevant to Health Maintenance Insurance [employer] MEDICAID OF [place]
--- OUTSIDE RECORDS SUMMARY | 2024-12-15 23:21 | XMS_ITS | Encounter Summary ---
Author Organization [facility] Address [address] [place] [address] Care Team Providers Care Special Education Para Professional Name Role Phone Logan Amanda Nikole CABLE INSTALLATION TECHNICIAN Primary Care Provider Encounter Details Date Type Department Care Team (Late st Contact Info) Description 01/19/2023 Clinisync Result Encounter N[facility] External Department Unsolicited Basim Martinez DO [address] [facility] [address] [place], [place] [address] Social History Tobacco Use Types Packs/Day Years [...] AM EDT Routine [facility] [address] [facility] [place] [address] Jojo Ames PA [address] [facility] [address] [place], [place] [address] 02/20/2025 1:00 PM EST Office Visit [facility] [place] OBG[facility] [address] [facility] [place] [address] Basim Martinez DO [address] [facility] [place] [address] 08/21/2025 9:30 AM EDT Office Visit [facility] [address] [place] [address] Darleen Sinclair MD [address], [address] [place] [address] documented as of this encounter Procedures [...] EDT Narrative 01/19/2023 3:46 PM EDT The [address] [address] Ultrasound Report Signed Patient: GUZMAN DEL CID MR#: [id number] : 1995 Acct:[id number] Age/Sex: 27 / F ADM Date: 01/19/23 Loc: US Attending Dr: Basim Martinez D.O. Ordering Physician: Basim Martinez D.O. Date of Service: 01/19/23 Procedure(s): US pelvis transvaginal Accession Number(s): [id number] cc: Basim Martinez D.O.; AMANDA FORD [address] [address] Patient Name: GUZMAN DEL CID MRN: [id number] date: 1995 Sex: F Assigned Patient Location: US Current Patient Location: US Accession/Order Number: [id number] Exam Date: 01/19/2023 14:15 Report Date: 01/19/2023 [...] Signed By: 01/19/23 1549 DD/ 1546 TD/TT: Box Blank Machine Operator Helper: Procedure Note Radiology, Radiologist, MD - 01/19/2023 [place] [address] Ultrasound Report Signed Patient: GUZMAN DEL CIDMR#: [id number] : 1995Acct:[id number] Age/Sex: 27 / FADM Date: 01/19/23 Loc: US Attending Dr: Basim Martinez D.O. Ordering Physician: Basim Martinez D.O. Date of Service: 01/19/23 Procedure(s): US pelvis transvaginal Accession Number(s): [id number] cc: Basim Martinez D.O.; AMANDA FORD [place] [address] Patient Name: GUZMAN DEL CID MRN: [id number] date: 1995 Sex: F Assigned Patient Location: US Current Patient Location: US Accession/Order Number: [id number] Exam Date: 01/19/2023 14:15 Report Date: 01/19/2023 [...] M.D. Signed By:01/19/23 1549 DD/ 1546 TD/TT: Box Blank Machine Operator Helper: us Basim Juan DO [facility] Final Result * ALL DEHYDROEPIANDROSTERONE (01/19/2023 2:10 PM EDT) DHEA, SERUM 141 31 - 701 ng/dL [facility] Comment: This test was developed and its performance characteristics determined by [facility]. It has not been cleared or approved by the Food and Drug Administration. Performed at: [address] [id number] Trash Collector: Jon Horton MD, Phone: [phone] 01/19/2023 2:10 PM EDT 01/19/2023 2:12 PM EDT Narrative [facility] - 01/25/2023 6:07 PM EDT [facility] Final Result [facility] * ALL ANTI-MULLERIAN HORMONE (01/19/2023 2:10 PM EDT) Pathologist [facility] ANTI-MULLERIAN HORMONE (AMH) 0.895 . ng/mL [facility] Comment: For assays employing antibodies, the possibility exists for interference by heterophile antibodies in the samples.1 1.Yessenia [place]. Interferences in Immunoassays - still a threat. Clin. Chem. 2000; 46: 3218-6899. This test was developed and its performance characteristics determined by [facility]. It has not been cleared or approved by the Food and Drug Administration. Reference Range: Females 26 - 30y: 1.03 - 11.10 Median 4.20 AMH concentrations of >= 1.06 ng/mL is correlated with a better response to ovarian stimulation, produced more retrievable oocytes and higher odds of live according to Gleicher et al. Fertility and Sterility. 2010: 94:9051-7434. The current AMH test method correlates with [...] exclude an AMH-secreting ovarian tumor. Performed at: [facility] [address] [place] [id number] Trash Collector: James Pereyra MD, Phone: [phone] 01/19/2023 2:10 PM EDT 01/19/2023 2:12 PM EDT Narrative [facility] - 01/23/2023 8:07 PM EDT us Basim Juan DO [facility] Final Result [facility] TB * (ABNORMAL) [facility] PROLACTIN (01/19/2023 2:10 PM EDT) PROLACTIN 4.4(A) 4.8 - 23.3 ng/mL [facility] Comment: Performed at: [facility] [id number] Trash Collector: Isaac Dietz PhD, Phone: [phone] 01/19/2023 2:10 PM EDT 01/19/2023 2:12 PM EDT Narrative [facility] - 01/20/2023 4:07 AM EDT us Basim Juan DO [facility] Final Result Performing Organization Address City/[facility]/ZIP Co de Phone Number [facility] TB * ALL FOLLICLE STIMULATING HORMONE (01/19/2023 2:10 PM EDT) FSH 8.4 . mIU/mL [facility] Comment: Adult Female: Follicular phase 3.5 - 12.5 Ovulation phase 4.7 - 21.5 Luteal phase 1.7 - 7.7 Postmenopausal 25.8 - 134.8 01/19/2023 2:10 PM EDT 01/19/2023 2:12 PM EDT Narrative [facility] - 01/20/2023 4:07 AM EDT us Basim Juan DO [facility] Final Result Performing Organization Address City/[facility] Co de Phone Number [facility] TBH [...] DO [facility] Final Result Performing Organization Address [facility] Co de Phone Number [facility] * ALL DHEA SULFATE (01/19/2023 2:10 PM EDT) DHEA-SULFATE 91.4 84.8 - 378.0 ug/dL [facility] 01/19/2023 2:10 PM EDT 01/19/2023 2:12 PM EDT Narrative [facility] - 01/20/2023 4:07 AM EDT Basim Juan DO [facility] Final Result Performing Organization Address [facility] Co de Phone Number [facility]YREPLACED [facility] documented in this encounter Visit Diagnoses Not on filedocumented in this encounter Care Teams Special Education Para Professional Relationship Specialty Start Date End Date Amanda Ford NP [address] [facility] [place] [address] PCP - General Family Medicine 01/17/23 documented as of this encounter
--- OUTSIDE RECORDS SUMMARY | 2024-12-15 23:21 | XMS_ITS | Encounter Summary ---
Author Organization [facility] [employer] [facility] tem Address [facility] [id number] [address] [place] [address] Care Team Providers Care Accounting Manager Controller Name Role Phone No Pcp, No Pcp Primary Care Provider Unavailabl e Encounter Details Date Type Department Care Team (Late Contact Info) Description 12/04/2024 Orders Only Maternal- Medicine at [facility] [address] [place] [phone] Ref Prov, [place] [address] Social History Tobacco Use Types Packs/Day Years [...] 01/03/2025 2:15 PM EDT Appointment Maternal Medicine [place] [address] [place] [address] documented as of this encounter Procedures Procedure Name Priority Date/Time Associated Diagnosis Comments ULTRASOUND OFFICE Routine 09/03/2024 8:41 AM EDT documented in this encounter Results * Ultrasound - Office (09/03/2024 8:41 AM EDT) Anatomical Region Laterality Modality AMB Ultrasound us Not In System Ref Prov IMG US ORDERABLES Final R esult documented in this encounter Visit Diagnoses Not on filedocumented in this encounter Care Teams Accounting Manager Controller Relationship Specialty Start Date End Date No Pcp, [place] [address] PCP - General Family Medicine 05/20/20 documented as of this encounter
--- OUTSIDE RECORDS SUMMARY | 2024-12-15 23:21 | XMS_ITS | Encounter Summary ---
Author Organization [employer] tem Address [facility] [id number] [address] [place] [address] Care Team Providers Care Supervisor Car And Yard Name Role Phone No Pcp, No Pcp Primary Care Provider Unavailabl e Encounter Details Date Type Department Care Team (Latest Contact Info) Description 12/05/2024 Travel Social History Tobacco Use Types Packs/Day Years Used Date Smoking Tobacco: Former Cigarettes S tarted: 2023 Smokeless Tobacco: Never Alcohol Use Standard Drinks/Week [...] Upcoming Encounters Date Type Department Care Team ( st Contact Info) Description 01/03/2025 2:15 PM EDT Appointment Maternal Medicine [place] [address] [facility] [address] [place] [phone] documented as of this encounter Visit Diagnoses Not on filedocumented in this encounter Care Teams Supervisor Car And Yard Relationship Specialty Start Date End Date No Pcp, [place] [address] PCP - General Family Medicine 05/20/20 documented as of this encounter
--- OUTSIDE RECORDS SUMMARY | 2024-12-15 23:21 | XMS_ITS | Encounter Summary ---
Author Organization [facility] tem Address [facility] [id number] [address] [place] [address] Care Team Providers Care Rehabilitation Aide/Scheduler Name Role Phone No Pcp, No Pcp Primary Care Provider Unavailabl e Encounter Details Date Type Department Care Team (Late st Contact Info) Description 12/04/2024 Abstract Maternal- Medicine at [facility] [address] [place] [phone] Latricia Garcia MD [address] [facility], [address] [place] [address] Social History Tobacco Use Types Packs/Day Years [...] 01/03/2025 2:15 PM EDT Appointment Maternal Medicine [place] [address] [facility] [address] [place] [address] documented as of this encounter Visit Diagnoses Not on filedocumented in this encounter Care Teams Rehabilitation Aide/Scheduler Relationship Specialty Start Date End Date No Pcp, [place] [address] PCP - General Family Medicine 05/20/20 documented as of this encounter
--- OUTSIDE RECORDS SUMMARY | 2024-12-15 23:21 | XMS_ITS | Encounter Summary ---
Author Organization [facility] [email or web address] tem Address [facility] [id number] [address] [place] [address] Care Team Providers Care Nursery Teacher Name Role Phone No Pcp, No Pcp Primary Care Provider Unavailabl e Encounter Details Date Type Department Care Team (Late st Contact Info) Description 12/04/2024 Telephone Maternal- Medicine at [facility] [address] [place] [address] Chiquita Shen RN Social History Tobacco Use Types Packs/Day Years [...] encounter Miscellaneous Notes * Telephone Encounter - Chiquita Shen RN - 12/04/2024 11:01 AM EDT Called patient to get verbal consent to access fertility clinic records. Patient stated she went [facility] in [place]. She also clarified that she got IUI and not IVF. Founding Partner called fertility clinic and they do not directly fax over records to other offices, the patient has to either call medical records or allow access through their MyChart. Patient was called back and notified. She said she would try to get the records to us. Fax number provided. documented in this encounter Plan of Treatment Upcoming Encounters Date Type Department Care Team (Late st Contact Info) Description 01/03/2025 2:15 PM EDT Appointment Maternal Medicine [place] [address] [facility] [address] [place] [address] documented as of this encounter Visit Diagnoses Not on filedocumented in this encounter Care Teams Nursery Teacher Relationship Specialty Start Date End Date No Pcp, [place] [address] PCP - General Family Medicine 05/20/20 documented as of this encounter
--- OUTSIDE RECORDS SUMMARY | 2024-12-15 23:21 | XMS_ITS | Clinical Summary ---
Author Organization [employer] tem Address [facility] [id number] [address] [place] [address] Care Team Providers Care Blasting Cap Assembler Name Role Phone No Pcp, No Pcp Primary Care Provider Unavailabl e Allergies Active Allergy Reactions Criticality Noted Date Comments Nsaids (Non-Steroidal Anti-I nflammatory Drug) 10/26/2024 Medications [id number] c acid ( 19) 29 mg iron- 1 mg tablet,chewable Chew 1 tablet and swallow in the morning. Active sertraline (ZOLOFT) 25 mg tablet Take 1 tablet (25 mg total) by mouth in the morning. Active docusate sodium (COLACE) 100 mg capsule Take 1 capsule (100 mg total) by mouth in the morning. Active ferrous sulfate 325 (65 FE) MG tablet Take 1 tablet (325 mg total) by mouth in the morning and 1 tablet (325 mg total) in the evening. Take with meals. Active levothyroxine (SYNTHROID, LEVOTHROID) 50 MCG tablet Take 1 tablet (50 mcg total) by mouth in the morning. Active lansoprazole (PREVACID) 30 mg capsule Take 1 capsule (30 mg total) by mouth in the morning. Active QUEtiapine (SEROquel) 25 mg tablet Take 1 tablet (25 mg total) by mouth nightly. Active lamoTRIgine (LaMICtal) 200 mg tablet Take 1 tablet (200 mg total) by mouth in the morning. Active magnesium oxide (MAGOX) 400 mg tabletIndicatio ns: headache in second trimester Take 1 tablet (400 mg total) by mouth in the morning and 1 tablet (400 mg total) before bedtime. 120 tablet 1 12/05/2024 Active Active Problems Problem Noted Date Diagnosed Date Previous gastric bypass affecting , ant epartum 12/05/2024 headache in second trimester Hypothyroidism affecting in second tri mester 12/05/2024 Bipolar disease during in second trime ster 12/05/2024 Estimated Date of Delivery Comme nts Yes 04/23/2025 Based on Other B asis, IUI conception date 07/31/2024 Encounters Date Type Department Care Team Description 12/05/2024 2:00 PM EDT Office Visit Maternal- Medicine at [facility] [address] [place] [address] Enrike Garcia MD 20 weeks gestation of (Primary Dx); Previous gastric bypass affecting , antepartum; Obesity affecting in second trimester, unspecified obesity type; Hypothyroidism affecting in second trimester; 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 (CMS-HCC); headache in second trimester 12/05/2024 12:36 PM EDT - 12/05/2024 11:59 PM EDT Hospital Encounter [facility] [address] [place] [phone] Screening, , for anatomic survey Discharge Disposition: Home 12/05/2024 Orders Only Maternal- Medicine at [facility] [address] [place] [address] Chiquita Shen RN Previous gastric bypass affecting , antepartum (Primary Dx); Hypothyroidism affecting in second trimester; 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 ([facility]); Obesity affecting in second trimester, unspecified obesity type; Encounter for supervision of resulting from assisted reproductive technology, antepartum 12/05/2024 Travel 12/04/2024 Telephone Maternal- Medicine at [facility] [address] [place] [address] Chiquita Shen RN 12/04/2024 Orders Only Maternal- Medicine at [facility] [address] [place] [address] Ref Prov, Not In System 12/04/2024 Abstract Maternal- Medicine at [facility] [address] [place] [address] Enrike Garcia MD 10/26/2024 Orders Only Maternal- Medicine at [facility] [address] [place] [address] Ref Prov, Not In System 10/26/2024 Abstract Maternal- Medicine at [facility] [address] [place] [address] Enrike Garcia MD from Last 3 Months Family History Medical History Relation Name Comments Diabetes Father Hypertension Father Thyroid disease Father Diabetes Maternal Grandfather Depression Mother Obesity Mother Skin cancer Mother Thyroid disease Mother Relation Name Status Comments Father Maternal Grandfather Mother Paternal Grandfather Social History Tobacco Use Types Packs/Day [...] Mass Index 35.84 12/05/2024 12:46 PM EDT Plan of Treatment Upcoming Encounters Date Type Department Care Team (Late st Contact Info) Description 01/03/2025 2:15 PM EDT Appointment Maternal Medicine [place] [address] [facility] [address] [place] [phone] Health Maintenance Due Date Last Done Comments Depression Screening 2007 Adult BMI Follow Up Plan 2013 Pap Smear 2016 COVID-19 Vaccine ( season) 12/18/202307/2020, 07/22/2020 Influenza Vaccine 12/17/2024 Adult BMI Screening 12/05/2025 12/05/2024 Tobacco Screening 12/05/2025 12/05/2024 DTaP,Tdap and Td Vaccines (2 - Td or Tdap) 12/25/2032 12/25/2022 Medical Devices Not on file Procedures Procedure Name Priority Date/Time Associated Diagnosis Comments US [facility] COMPREHENSIVE ANATOMIC SURVEY Routine 12/05/2024 2:42 PM EDT Screening, , for anatomic survey UNLISTED LAB TEST Routine 10/18/2024 2:3 7 [...] EDT from Last 3 Months Results * US [facility] COMPREHENSIVE ANATOMIC SURVEY (12/05/2024 2:42 PM EDT) Anatomical Region Laterality Modality 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 12/05/2024 1:21 PM EDT Narrative 12/05/2024 4:11 PM EDT NAME: MARIA EUGENIA HINDS : 1995 SEX: F Accession Number: [id number] ORDERING PHYSICIAN: ENRIKE GARCIA REFERRING PHYSICIAN: BASIM BIRMINGHAM Coding ----- --------- Procedures [id number]: Ultrasound, uterus, real time with image documentation, and maternal evaluation plus detailed anatomic examination, transabdominal approach;single or first gestation 98889: Transvaginal Ultrasound (OB) Indication ----- --------- Screening for Anatomic Survey, Screening for cervical length, resulting from assisted reproductive technology- IUI, History of Gastric sleeve, Obesity in . History ----- --------- OB History 1. Para 0 [id number] Current ----- --------- Cell free DNA low [...] EFW (oz) 14 oz EFW by: Hadlock (UOM-WL-LY-FL) Extended Tibia 27.0 mm 19w 5d 43% Gayle Technician [employer] 8.2 mm CM 4.2 mm 24% Nicolaides Nasal bone 5.4 mm 6% Peerlyst Head / Face / Neck Cephalic index [...] Thorax RVOT view. LVOT view. 3-vessel view. 2-zdslip-xuugdvd view. Bicaval view. Ductal arch view. Great [...] 5.2 cm. Recommendations ----- --------- Please see [facility] documentation from today. The patient is [...] HINDS : 1995 SEX: F Accession Number: [id number] ORDERING PHYSICIAN: ENRIKE GARCIA REFERRING PHYSICIAN: BASIM BIRMINGHAM Coding ----- --------- Procedures [id number]: Ultrasound, uterus, real time with imagedocumentation, and maternal evaluation plus detailed anatomic examination, transabdominalapproach;single or first gestation [id number]: Transvaginal Ultrasound (OB) Indication ----- --------- Screening for Anatomic Survey, Screening for cervical length, Pregnancyresulting from assisted reproductive technology- IUI, History of Gastric sleeve, Obesity in . History ----- --------- OB History 1. Para 0 [id number] Current ----- --------- Cell free DNA low [...] EFW (oz) 14 oz EFW by: Hadlock (IKD-[id number]-FL) Extended Tibia 27.0 mm 19w 5d 43% Gayle [employer] 8.2 mm CM 4.2 mm 24% Nicolaides [...] Thorax RVOT view. LVOT view. 3-vessel view. 8-dbmldm-nkfgkoa view.Bicaval view. Ductal arch view. Great vessels. [...] byprimary OB provider unless otherwise specified by MFM. Results forwarded to ordering provider so they can follow up with thepatient as necessary. us Enrike Garcia MD [facility] ORDERABLES Final Re sult * Unlisted Lab Test (10/18/2024 2:37 PM EDT) Only the most recent of2 resultswithin the time period is included. us Not In System Ref Prov LAB BLOOD ORDERABLES Danna l Result MANUALLY TRANSCRIBED RESULTS * HIV 1&2 AB/AG Screen (P24 AG) (09/26/2024) HIV 1&2 AB/AG non reactive MAN UALLY TRANSCRIBED RESULTS Blood Venous blood / Unknown us Not In System Ref Prov LAB BLOOD ORDERABLES Danna l Result MANUALLY TRANSCRIBED RESULTS * Rubella IGG immune status (09/26/2024) Rubella immune IgG 2.78 MANUALLY TRANSCRIBED RESULTS Blood Venous blood / Unknown us Not In System Ref Prov LAB BLOOD ORDERABLES Danna l Result Performing Organization Address City/[facility] Co de Phone Number MANUALLY TRANSCRIBED RESULTS * Syphilis Total (Unknown Syphilis Status) (09/26/2024) Syphilis non reactive MANUALL Y TRANSCRIBED RESULTS Blood Venous blood / Unknown us Not In System Ref Prov LAB BLOOD ORDERABLES Danna l Result Performing Organization Address City/[facility] Co de Phone Number MANUALLY TRANSCRIBED RESULTS * Hepatitis B surface antigen (09/26/2024) Hepatitis B Surface Antigen negative MANUALLY TRANSCRIBED RESULTS Blood Venous blood / Unknown us Not In System Ref Prov LAB BLOOD ORDERABLES Danna l Result Performing Organization Address [facility] de Phone Number MANUALLY TRANSCRIBED RESULTS * Type and screen (09/26/2024) Abo/Rh(D) O Positive MANUALLY TRANSCRIBED RESULTS Antibody Screen negative MANUALLY TRANSCRIBED RESULTS Blood Venous blood / Unknown us Not In System Ref Prov BLOOD BANK TEST ORDERABLE S Final Result Performing Organization Address [facility] de Phone Number MANUALLY TRANSCRIBED RESULTS * Hemoglobin A1c (09/26/2024) Hemoglobin A1C 4.8 4.0 - 6.0 % MANUALLY TRANSCRIBED RESULTS Blood Venous blood / Unknown us Scanning Provider External LAB BLOOD ORDERABLES Final Result Performing Organization Address City/[facility] Co de Phone Number MANUALLY TRANSCRIBED RESULTS * Ultrasound - Office (09/21/2024 2:06 PM EDT) Anatomical Region Laterality Modality AMB Ultrasound us Not In System Ref Prov IMG US ORDERABLES Final R esult from Last 3 Months Insurance [facility] MEDICAID Care Teams Blasting Cap Assembler Relationship Specialty Start Date End Date No Pcp, [place] [address] PCP - General Family Medicine 05/20/20
--- OUTSIDE RECORDS SUMMARY | 2024-12-15 23:21 | XMS_ITS | Encounter Summary ---
Author Organization [email or web address] tem Address [facility] [id number] [address] [place] [address] Care Team Providers Care Broke Beater Name Role Phone No Pcp, No Pcp Primary Care Provider Unavailabl e Reason for Referral * Diagnostic Imaging (Routine) - Pending Review Specialty Diagnoses / Procedures Referred By Saud tavera Referred To Contact Maternal and Medicine Diagnoses Previous gastric bypass affecting , antepartum Hypothyroidism affecting in second trimester 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 ([facility]) Obesity affecting in second trimester, unspecified obesity type Encounter for supervision of resulting from assisted reproductive technology, antepartum Procedures [facility] with or without consult Latricia Garcia MD [address] [address] Phone: tel: fax: Maternal- Medicine at [facility] [address] [place] [address] Phone: tel: fax: Referral ID Status Reason Start Date Expiration Date V isits Requested Visits Authorized [id number] Pending Review 12/05/2024 12/05/2025 1 1 Encounter Details Date Type Department Care Team (Late st Contact Info) Description 12/05/2024 Orders Only Maternal- Medicine at [facility] [address] [facility] [place] [phone] Chiquita Shen RN Previous gastric bypass affecting , antepartum (Primary Dx); Hypothyroidism affecting in second trimester; 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 (CMS-HCC); Obesity affecting in second trimester, unspecified obesity type; Encounter for supervision of resulting from assisted reproductive technology, antepartum Social History Tobacco Use Types Packs/Day Years [...] 01/03/2025 2:15 PM EDT Appointment Maternal Medicine [place] [id number] [facility] [address] [place] [address] Scheduled Orders Name Type Priority Associated Diagnoses Orde r Schedule US MFM with or without consult Imaging Routine Previous gastric bypass affecting , antepartum Hypothyroidism affecting in second trimester 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 ([facility]) Obesity affecting in second trimester, unspecified obesity type Encounter for supervision of resulting from assisted reproductive technology, antepartum Expected: 12/05/2025 (Approximate), Expires: 12/05/2025 documented as of this encounter Visit Diagnoses Diagnosis Previous gastric bypass affecting , antepartum- Primary Hypothyroidism affecting in second trimester 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 ([facility]) Obesity affecting in second trimester, unspecified obesity type Encounter for supervision of resulting from assisted reproductive technology, antepartum documented in this encounter Care Teams Broke Beater Relationship Specialty Start Date End Date No Pcp, [place] [address] PCP - General Family Medicine 05/20/20 documented as of this encounter
[2024-12-15 23:38] LABS: Glucose Urine UA NEGATIVE (NEGATIVE)
[2024-12-15 23:39] VITALS: BP 114/59; PULSE 66
[2024-12-15 23:50] LABS: Cast Seen? NONE SEEN #/LPF (NONE SEEN); Crystals Seen? None Seen #/HPF (None Seen); Urine Culture Indicated NO
== END 2024-12-16 02:50 | disposition home or self-care (01) ==
PROVIDERS: Admitting Provider Obstetrics & Gynecology; PCP Nurse Practitioner Family; Visit Provider Obstetrics & Gynecology
DX: O46.92 Antepartum hemorrhage, unspecified, second trimester (principal); Z3A.21 21 weeks gestation of pregnancy
CPT/HCPCS: 59025; 76817; 81001; G0378; G0379

== ENCOUNTER 2025-01-09 10:47 | Outpatient (OUT) | payer MEDICAID, SELFPAY ==
--- OUTSIDE RECORDS SUMMARY | 2023-08-31 06:45 | XMS_ITS | Continuity of Care Document ---
Author Organization [facility] Address [address] [place] [address] Phone Care Team Providers Care Agency Cashier Name Role Phone Jo Melvin DDS Unavailable [...] Visit Dental Bitewig-single Film Intraoral-periapical 1st Film Vrpifzidi-sejstqwmjd-qeic Additional Jul Oral Hygiene Instruction Limited Oral Eval Oral/Facial Photographic Images 024 Prophylaxis Adult Nutrit Couns For Control Of [place] Dis Jul Oral Hygiene Instruction Oral Hygiene [...] Diagnoses Date Provider Providers Copied on Encounter [facility], [address] [place] [address], [id number], tel:[phone] Dental Clinic de (chief complaint) Encounter for screening for dental disorders [facility]. . tel:[phone] [facility], [address] [place] [address], [id number], [place] tel:[phone] Dental Clinic dl (chief complaint) Encounter for screening for dental disorders [facility]. [address] [place] [address], [id number], [place]. tel:[phone] [facility], [address] [place] [address], [id number], tel:[phone] [facility] [place] (chief complaint) Body mass index [BMI] 28.0-28.9, adultEncounter for screening for dental disorders Aaron S Butch. [address] [place] [address], [address], [place]. tel:[phone] [facility], [address] [place] [address], [id number], tel:[phone] Dental Clinic fill (chief complaint) Encounter for screening for dental disorders Ngozi S Jo. . tel:[phone] [facility], [address] [place] [address], [id number], [place] tel:[phone] Dental Clinic fill (chief complaint) Encounter for screening for dental disorders Ngozi Osorio. . tel: [phone] [facility], [address] [place] [address], [id number], [place] tel:[phone] Dental Clinic fill (chief complaint) Encounter for screening for dental disorders Ngozi Osorio. . tel: [phone] [facility], [address] [place] [address], [id number], [place] tel:[phone] Dental Clinic DN (chief complaint) Encounter for screening for dental disorders Ngozi Osorio. . tel: [phone] Family History Family Member Type Diagnosis Age At Onset No Information Payers Payer name Insurance type Covered republican ID Authoriza tion(s) No Information Social History [...] Of Treatment Date Type Action Status Goal Hepatitis C screening. Due o n due Goal Tdap. Due on due Goal RLP. Due on due Goal Tdap Vaccine. Due on 2023 due Goal Influenza vaccine. Due on due Goal Unhealthy drug use screening . Due on due Goal PAP. Due on due Goal PRAPARE ASSESSMENT. Due on due Goal Depression screening. Due on due Goal Tdap Vaccine. Due [...] due Goal PAP. Due on due Goal Hepatitis C screening. Due o n due Goal Tdap Vaccine. Due on 2023 due Goal Unhealthy drug use screening . Due on due Goal Tdap. Due on due Goal Depression screening. Due on due Goal RLP. Due on due Goal PRAPARE ASSESSMENT. Due on A due Goal Influenza vaccine. Due on due Goal Dietary management education , guidance, and counseling completed Goal Tdap. Due on due Goal PAP. Due on due Goal Tdap Vaccine. Due on 2022 due Goal Depression screening. Due on due Goal RLP. Due on due Goal Influenza vaccine. Due on Se due Goal PRAPARE ASSESSMENT. Due on S due Goal Influenza vaccine. Due on Se due Goal RLP. Due on due Goal PRAPARE ASSESSMENT. Due on S due Goal PAP. Due on due Goal Tdap. Due on due Goal Tdap Vaccine. Due on 2022 due Goal Depression screening. Due on due Goal Depression screening. Due on due Goal Tdap Vaccine. Due on 2022 due Goal PRAPARE ASSESSMENT. Due on S due Goal PAP. Due on due Goal Tdap. Due on due Goal RLP. Due on due Goal Influenza vaccine. Due on Se due Goal Tdap Vaccine. Due on 2022 due Goal PRAPARE ASSESSMENT. Due on A due Goal RLP. Due on due Goal Depression screening. Due on due Goal Influenza vaccine. Due on Au due Goal Tdap. Due on due Goal Hep A. Due on du e Goal PAP. Due on due History Of Present Illness [...]
--- OUTSIDE RECORDS SUMMARY | 2024-04-25 09:30 | XMS_ITS ---
Author Organization [facility] Address [address] [address] Care Team Providers Care Adjunct Psychology Professor Name Role Phone Jennifer Hahn Primary Care Provider [phone] Julieta Sher [phone] REASON FOR VISIT 3 month f/u Encounters Encounter Location Date Provider Diagnosis [facility] [address] [address] 04/25/2024 Julieta Jefferson Plan Of Treatment No Information Progress Notes * GUZMAN DEL CIDDOB: 5 (29 yo F)Acc No.[id number]:04/25/2024 Behavioral Health Patient: GUZMAN AMES Appointment Provider: Adin Jefferson :1995 A ge:29 Y S ex:Female Date:04/25/2024 Address:[address], [id number] Pcp:Jennifer Hahn Subjective: * Chief Complaints: * 1 . 3 month f/u. * Medical History: Objective: * Vitals: Assessment: Plan: * Treatment: * Images: * Electronic signature of NELIDA Newell FNP on 01/09/2025 at 10:51 AM EDT Sign off status: Pending * Appointment Provider: Adin Jefferson Date: 0 04/25/2024 Generated for Printi ng/Faxing/eTransmitting on: 0 01/09/2025 10:51 AM EDT
--- OUTSIDE RECORDS SUMMARY | 2024-07-25 06:30 | XMS_ITS ---
Author Organization [facility] Address [address] [place] [address] Care Team Providers Care Checker And Packer Name Role Phone Jennifer Hahn Primary Care Provider [phone] Julieta Sher [phone] REASON FOR VISIT 3 month f/u Encounters Encounter Location Date Provider Diagnosis [facility] [address] [place] [address] 07/25/2024 Julieta Jefferson Plan Of Treatment No Information Progress Notes * GUZMAN DEL CIDDOB: 5 (29 yo F)Acc No.[id number]:07/25/2024 Behavioral Health Patient: GUZMAN AMES Appointment Provider: Adin Jefferson :1995 A ge:29 Y S ex:Female Date:07/25/2024 Address:[address], [id number] Pcp:Jennifer Hahn Subjective: * Chief Complaints: * 1 . 3 month f/u. * Medical History: Objective: * Vitals: Assessment: Plan: * Treatment: * Images: * Electronic signature of NELIDA Newell FNP on 01/09/2025 at 10:50 AM EDT Sign off status: Pending * Appointment Provider: Adin Jefferson Date: 0 07/25/2024 Generated for Printi ng/Faxing/eTransmitting on: 0 01/09/2025 10:50 AM EDT
--- OUTSIDE RECORDS SUMMARY | 2025-01-09 10:50 | XMS_ITS | Encounter Summary ---
Author Organization [facility] Address [address] [place] [address] Care Team Providers Care Monitoring Analyst Name Role Phone Unavailable Primary Care Provider Unavailabl e Source Comments In the event this information is protected by the Federal Confidentiality of Alcohol and Drug AbusePatient Records regulations: The Federal rules restrict any use of the information to criminally investigate or prosecute any alcohol or drug abuse patient.[facility] Encounter Details Date Type Department Care Team (Late st Contact Info) Description 09/03/2024 Patient Msg Reproductive Endocrinology Infertility [address] [place] [address] Manisha Powell APRN.PRINTER SLOTTER HELPER [address] [place] [address] Congratulations!!! Social History Tobacco Use Types Packs/Day Years Used Date Smoking Tobacco: Never Assessed Area Deprivation Index Answer Date Claudio rded National Score (1-100), lower number is lower ri sk 82 02/28/2024 State Score (1-10), lower number is lower risk 7 02/28/2024 Data from: https://www.neighborhoodatlas.medicine.[facility].edu/. Last address used for calculation [address] [...]
--- OUTSIDE RECORDS SUMMARY | 2025-01-09 10:51 | XMS_ITS | Encounter Summary ---
Author Organization [facility] Address [address] [place] [address] Care Team Providers Care Manager Package Name Role Phone Amanda Ford FIRE MANAGEMENT TECHNICIAN Primary Care Provider Encounter Details Date Type Department Care Team (Late st Contact Info) Description 10/22/2024 Abstract [facility] [address] [place] [address] Kerrie Babcock MA Social History Tobacco [...] Care Team (Late st Contact Info) Description 01/16/2025 11:20 AM EDT Routine [facility] [address] [place] [address] Mima Duenas, TY [address] [place] [address] 02/20/2025 1:00 PM EST Office Visit [facility] [address] [place] [address] Les Martinez DO [address] [place] [address] 08/21/2025 9:30 AM EDT Office Visit [facility] [place] [facility] [address] [place] [address] Darleen Sinclair MD [address] [place] [address] documented as of this encounter Goals Goal Patient Goal Type Associated Problems Recent Progress Patient-Stated? Author Reminders Care Plan OB Reminders No Open Scheduling, Background documented as of this encounter Visit Diagnoses Not on filedocumented in this encounter Additional Health Concerns Active Problems Noted Date Diagnosed Date OB Reminders 10/22/2024 documented as of this encounter Care Teams Manager Package Relationship Specialty Start Date End Date Amanda Ford NP [address] [facility] [place] [address] PCP - General Family Medicine 01/17/23 documented as of this encounter
--- OUTSIDE RECORDS SUMMARY | 2025-01-09 10:51 | XMS_ITS | Encounter Summary ---
Author Organization [facility] Address [address], [address] [place] [address] Care Team Providers Care Automotive Center Manager Name Role Phone Robin Marquez MD Primary Care Provider [phone] Reason for Visit * Reason Comments Medication Refill Encounter Details Date Type Department Care Team (Late st Contact Info) Description 03/22/2019 Refill [facility] [address] [place] [address] [place] [address] Christina Arreguin, ACCOUNTANT BUDGET - LINE AND FRAME POLER Medication Refill Social History Tobacco Use Types [...] documented as of this encounter Care Teams Automotive Center Manager Relationship Specialty Start Date End Date Robin Marquez MD [address] [place] [address] PCP - General Family Medicine 10/10/18 documented as of this encounter
--- OUTSIDE RECORDS SUMMARY | 2025-01-09 10:51 | XMS_ITS | Encounter Summary ---
Author Organization [facility] Address [address] [place] [address] Care Team Providers Care Diet Kitchen Cook Name Role Phone Unavailable Primary Care Provider Unavailabl e Source Comments In the event this information is protected by the Federal Confidentiality of Alcohol and Drug AbusePatient Records regulations: The Federal rules restrict any use of the information to criminally investigate or prosecute any alcohol or drug abuse patient.[facility] Encounter Details Date Type Department Care Team (Latest Contact Info) Description 05/09/2024 Patient Msg Reproductive Endocrinology Infertility [address] [place] [address] Shelly Hernandez APRN.COMMERCIAL INTERIOR DESIGNER [address] [place] [address] Summary of Next Steps Social History Tobacco Use Types Packs/Day Years Used Date Smoking Tobacco: Never Assessed Area Deprivation Index Answer Date Claudio rded National Score (1-100), lower number is lower ri sk 82 02/28/2024 State Score (1-10), lower number is lower risk 7 02/28/2024 Data from: https://www.neighborhoodatlas.medicine.[facility].edu/. Last address used for calculation [...]
--- OUTSIDE RECORDS SUMMARY | 2025-01-09 10:51 | XMS_ITS | Encounter Summary ---
Author Organization [facility] Address [address] [place] [address] Care Team Providers Care Interlibrary Loan Services Librarian Name Role Phone Unavailable Primary Care Provider Unavailabl e Source Comments In the event this information is protected by the Federal Confidentiality of Alcohol and Drug AbusePatient Records regulations: The Federal rules restrict any use of the information to criminally investigate or prosecute any alcohol or drug abuse patient.[facility] Encounter Details Date Type Department Care Team (Late st Contact Info) Description 05/15/2024 Get Medical Advice Reproductive Endocrinology Infertility [address] [place] [address] Shelly Hernandez APRN.BABY FORMULA WORKER [address] [place] [address] [employer] order Social History Tobacco Use Types Packs/Day Years Used Date Smoking Tobacco: Never Assessed Area Deprivation Index Answer Date Claudio rded National Score (1-100), lower number is lower ri sk 82 02/28/2024 State Score (1-10), lower number is lower risk 7 02/28/2024 Data from: https://www.neighborhoodatlas.medicine.[facility].edu/. Last address used for calculation [address] [...]
--- OUTSIDE RECORDS SUMMARY | 2025-01-09 10:51 | XMS_ITS | Clinical Summary ---
Author Organization [facility] Address [address] [place] [address] Care Team Providers Care Sales And Support Center Agent Name Role Phone Amanda Ford [employer]ER Primary Care Provider Allergies Active Allergy Reactions [...] Encounters Date Type Department Care Team Description 01/08/2025 Telephone [facility] [address] [place] [address] Jojo Ames PA 01/07/2025 Abstract [facility] [address] [place] [address] Basim Martinez, DO 12/19/2024 10:00 AM EDT Routine [facility] [place] [address] Jojo Ames PA 22 weeks gestation of ([facility]); Second trimester ([facility]); Thyroid disease ; H/O gastric sleeve; H/O iron deficiency anemia; Diabetes mellitus screening 12/19/2024 Bamboo flowsheet [facility] [address] [place] [address] Jojo Ames PA 12/15/2024 Clinisync Result Encounter NOMS External Department Unsolicited Basim Martinez, 12/12/2024 Travel 12/05/2024 External Result Encounter [facility] [address] [place] [address] Basim Martinez, 12/04/2024 8:30 AM EDT Ancillary Procedure [facility] HERNANDEZ [address] [place] [address] Screening, , for anatomic survey ([facility]) 12/02/2024 External Result Encounter NOMS External Department Unsolicited Eduardo Cruz, DO 11/30/2024 Telephone [facility] [address] [place] [address] Lisa Campbell LPN 11/20/2024 8:40 AM EDT Routine [facility] [address] [place] [address] Basim Martinez, Well woman exam with routine gynecological exam; Exposure to STD; Second trimester ([facility]); 18 weeks gestation of ([facility]); Need for maternal serum alpha-protein (MSAFP) screening ([facility]); Screening, , for anatomic survey ([facility]); Thyroid disease 11/20/2024 External Result Encounter NOMS External Department Unsolicited Basim Martinez, DO 11/20/2024 Clinisync Result Encounter NOMS External Department Unsolicited Basim Martinez, DO 11/20/2024 Bamboo flowsheet [facility] [address] [place] [address] Basim Martinez, 11/05/2024 Refill [facility]NA[facility] [address] [place] [address] Basim Martinez, Other iron deficiency anemia 10/22/2024 11:20 AM EDT Routine [facility]NA[facility] [address] [place] [address] Basim Martinez, 13 weeks gestation of ([facility]); Second trimester ([facility]); Thyroid disease ; H/O gastric sleeve; H/O iron deficiency anemia; resulting from in vitro fertilization in first trimester ([facility]) 10/22/2024 Abstract [facility] [address] [facility] [place] [address] Kerrie Babcock MA 10/22/2024 Abstract [facility] [address] [place] [address] Kerrie Babcock MA 10/22/2024 Abstract [facility]NA[facility] [address] [place] [address] Kerrie Babcock MA 10/21/2024 Travel 10/18/2024 [place] [address] Basim Martinez, 10/17/2024 Abstract [facility] [address] [address] Basim Martinez, 10/10/2024 Clinisync Result Encounter NOMS External Department Unsolicited Basim Martinez, DO from Last 3 Months Immunizations Immunization [...] Sign Reading Time Taken Comments Blood Pressure 118/60 12/19/2024 10:01 AM EDT Pulse 67 08/22/2024 10:04 AM EDT Temperature - - Respiratory Rate 16 08/22/2024 10:04 AM EDT Oxygen Saturation 99% 08/22/2024 10:04 AM EDT Inhaled Oxygen Concentration - - Weight 120 kg (263 lb 12.8 oz) 12/19/2024 10:01 AM EDT Height 180.3 cm (5' 11 ) 08/22/2024 10:04 AM EDT Body Mass Index 36.79 08/22/2024 10:04 AM EDT Plan of Treatment Upcoming Encounters Date Type Department Care Team (Late st Contact Info) Description 01/16/2025 11:20 AM EDT Routine [facility] [address] [facility] [address] Mima uDenas, TY [address] [place] [phone] 02/20/2025 1:00 PM EST Office Visit GUDELAI HERNANDEZ [address] [address] Basim Martinez DO [address] [place] [address] 08/21/2025 9:30 AM EDT Office Visit [facility] [address] [place] [address] Darleen Sinclair MD [address] [place] [address] Health Maintenance Due Date Last Done Comments Influenza Vaccine (#1) 2024 Goals Goal Patient Goal Type Associated Problems Recent Progress Patient-Stated? Author Reminders Care Plan OB Reminders No Open Scheduling, Background Procedures Procedure Name Priority Date/Time Associated Diagnosis Comments POCT URINALYSIS DIPSTICK Routine 12/19/2024 10:11 AM EDT 22 weeks gestation of ([facility]) Second trimester ([facility]) TBH URINE MICROSCOPIC ONLY Routine 12/15/2024 11:24 PM EDT TBH UA (CLEAN/CATCH) CIO/MICRO IF IND. Routine 12/15/2024 11:24 PM EDT US OB 14+ WEEKS ANATOMY SCAN 12/05/2024 4:12 PM EDT US OB 14+ WEEKS ANATOMY SCAN Routine 12/04/2024 9:26 AM EDT Screening, , for anatomic survey ([facility]) URINALYSIS REFLEX STAT 12/02/2024 11: 40 PM EDT RECURRENT VAGINITIS (HTRX) Routine 11/20/2024 10:51 AM EDT AFP, SERUM, OPEN SPINA BIFIDA Routine 11/20/2024 10:37 AM EDT ALL THYROID STIM HORMONE Routine 11/20/2024 10:37 AM EDT POCT URINALYSIS DIPSTICK Routine 11/20/2024 9:12 AM EDT Second trimester ([facility]) POCT URINALYSIS DIPSTICK Routine 10/22/2024 11:41 AM EDT 13 weeks gestation of ([facility]) Second trimester ([facility]) BOX TEST Routine 10/10/2024 11:18 AM EDT from Last 3 Months Results * POCT urinalysis dipstick manually resulted (12/19/2024 10:11 AM EDT) Only the most recent of3 [...] Nitrite, UA Negative Negative - Positive Urine 12/19/2024 10:1 1 AM EDT Jojo OGDEN POINT OF CARE TEST ENTER/EDIT OR DERABLES Final Result * TBH URINE MICROSCOPIC ONLY (12/15/2024 11:24 PM EDT) TBH WBC NONE SEEN NONE SEEN #/HPF TBH TBH RBC 0-2 0 - 2 #/HPF TBH BACTERIA URINE NONE SEEN NONE SEEN #/HPF TBH MUCUS URINE NONE SEEN NONE SEEN TBH SQUAMOUS EPITHELIAL CELL URINE RARE NONE/RARE #/LPF TBH CRYSTALS SEEN? None Seen None Seen #/HPF TBH CAST SEEN? NONE SEEN NONE SEEN #/LPF TBH URINE CULTURE INDICATED NO TBH 12/15/2024 11:2 4 PM EDT 12/15/2024 11:40 PM EDT Narrative [facility] - 12/15/2024 11:50 PM EDT Basim Juan DO [facility] Final Result Performing Organization Address [facility]/ZIP Co de Phone Number [facility] * (ABNORMAL) TBH UA (CLEAN/CATCH) CIO/MICRO IF IND. (12/15/2024 11:24 PM EDT) COLOR URINE LT. YELLOW YELLOW TBH CLARITY URINE CLEAR CLEAR TBH SPECIFIC GRAVITY URINE 1.015 1.005 - 1.025 TBH PH URINE 5.5 5.0 - 9.0 TBH PROTEIN URINE NEGATIVE NEG/TRACE mg/dL TBH GLUCOSE URINE UA NEGATIVE NEGATIVE mg/dL TBH BILIRUBIN URINE NEGATIVE NEGATIVE TBH KETONES URINE NEGATIVE NEGATIVE mg/dL TBH BLOOD URINE SMALL(A) NEGATIVE TBH NITRITE URINE NEGATIVE NEGATIVE TBH UROBILINOGEN URINE 0.2 0.2 - 1.0 EU/dL TBH LEUKOCYTE ESTERASE URINE NEGATIVE NEGATIVE TBH URINE MICROSCOPIC INDICATED YES TBH 12/15/2024 11:2 4 PM EDT 12/15/2024 11:40 PM EDT Narrative [facility] - 12/15/2024 11:50 PM EDT Basim Juan DO [facility] Final Result Performing Organization Address City/[facility]/ZIP Co de Phone Number [facility] TBH * US OB 14+ weeks anatomy scan (12/05/2024 4:12 PM EDT) Only the most recent of2 resultswithin the time period is included. Anatomical Region Laterality Modality Body Ultrasound 12/05/2024 4:12 PM EDT Narrative 12/05/2024 4:11 PM EDT THIS EXAM WAS PERFORMED AT [facility] NAME: MARIA EUGENIA HINDS : 1995 SEX: F Accession Number: [id number] ORDERING PHYSICIAN: ENRIKE LINDQUIST REFERRING PHYSICIAN: BASIM MARTINEZ Coding ----- --------- Procedures 73283: Ultrasound, uterus, real time with image documentation, and maternal evaluation plus detailed anatomic examination, transabdominal approach;single or first gestation 68495: Transvaginal Ultrasound (OB) Indication ----- --------- Screening for Anatomic Survey, Screening for cervical length, resulting from assisted reproductive technology- IUI, History of Gastric sleeve, Obesity in . History ----- --------- OB History 1. Para 0 [id number] Current ----- --------- Cell free DNA low [...] EFW (oz) 14 oz EFW by: Hadlock ([id number]) Extended Tibia 27.0 mm 19w 5d 43% [employer] Analyst 8.2 mm CM 4.2 mm 24% Nicolaides [...] Thorax RVOT view. LVOT view. 3-vessel view. 7-htwkms-wsytjfq view. Bicaval view. Ductal arch view. Great [...] 5.2 cm. Recommendations ----- --------- Please see [facility] documentation from today. The patient is scheduled in four to six week(s) to complete anatomic survey. Subsequent follow up or other follow up as clinically determined by primary OB provider unless otherwise specified by [facility]. Results forwarded to ordering provider so they can follow up with the patient as necessary. The copy-to physician of this order is BASIM Herring The ordering physician of this order is ENRIKE Alfaro Procedure Note Radiology, Radiologist, MD - 12/05/2024 THIS EXAM WAS PERFORMED AT [facility] NAME: MARIA EUGENIA HINDS : 1995 SEX: F Accession Number: [id number] ORDERING PHYSICIAN: ENRIKE LINDQUIST REFERRING PHYSICIAN: BASIM MARTINEZ Coding ----- --------- Procedures [id number]: Ultrasound, uterus, real time with imagedocumentation, and maternal evaluation plus detailed anatomic examination, transabdominalapproach;single or first gestation 48982: Transvaginal Ultrasound (OB) Indication ----- --------- Screening for Anatomic Survey, Screening for cervical length, Pregnancyresulting from assisted reproductive technology- IUI, History of Gastric sleeve, Obesity in . History ----- --------- OB History 1. Para 0 [id number] Current ----- --------- Cell free DNA low [...] EFW (oz) 14 oz EFW by: Hadlock ([id number]) Extended Tibia 27.0 mm 19w 5d 43% [employer] Analyst 8.2 mm CM 4.2 mm 24% Nicolaides [...] Thorax RVOT view. LVOT view. 3-vessel view. 9-sehkfj-qbgsybb view.Bicaval view. Ductal arch view. Great vessels. [...] 5.2 cm. Recommendations ----- --------- Please see [facility] documentation from today. The patient is scheduled in four to six week(s) to complete anatomicsurvey. Subsequent follow up or other follow up as clinically determined byprimary OB provider unless otherwise specified by [facility]. Results forwarded to ordering provider so they can follow up with thepatient as necessary. The copy-to physician of this order is BASIM Herring The ordering physician of this order is ENRIKE Alfaro us Basim Martinez DO [facility] [place] PROCEDURES Final Resul t * (ABNORMAL) Urinalysis with reflex microscopic (12/02/2024 11:40 PM EDT) COLOR,URINE Light-Yellow Yellow 12/03/2024 12:00 AM EDT [facility] APPEARANCE,URI NE Clear Clear 12/03/2024 12:00 AM EDT [facility] SPECIFICY GRAVITY,URINE 1.017 1.001 - 1.030 12/03/2024 12:00 AM EDT [facility] PH,URINE 5.5 5.0 - 9.0 12/03/2024 12:00 AM EDT [facility] LEUKOCYTE ESTERASE,URINE Negative Negative 12/03/2024 12:00 AM EDT [facility] NITRITE,URINE Negative Negative 12/03/2024 12:00 AM EDT [facility] PROTEIN,URINE Negative Negative mg/dL 12/03/2024 12:00 AM EDT [facility] GLUCOSE,URINE (UA) Normal Normal mg/dL 12/03/2024 12:00 AM EDT [facility] KETONES,URINE Negative Negative 12/03/2024 12:00 AM EDT [facility] UROBILINOGEN,U RINE Normal Normal mg/dL 12/03/2024 12:00 AM EDT [facility] BILIRUBIN,URIN E Negative Negative 12/03/2024 12:00 AM EDT [facility] OCCULT BLOOD,URINE 3+ Negative [facility] RBC,[facility] 1-2 0 - 4 [HPF] 12/03/2024 12:17 AM EDT [facility] WBC,URINE 1-2 0 - 4 [HPF] 12/03/2024 12:17 AM EDT [facility] SQUAMOUS EPITHELIAL CELL,URINE 1-2 0 - 2 [HPF] 12/03/2024 12:17 AM EDT [facility] BACTERIA,URINE 1+ None Seen [HPF] 12/03/2024 12[facility] HYALINE CASTS,URINE None 0 - 8 [LPF] 12/03/2024 12:17 AM EDT [facility] MUCUS,URINE 1+(AA) [LPF] 12/03/2024 12:17 AM EDT [facility] Other 12/02/2024 11:4 0 PM EDT 12/02/2024 11:49 PM EDT Narrative [facility] - 12/03/2024 12:17 AM EDT Comment c/o urinary symptoms or increased blood pressure Name Collection Type:: Voided us Eduardo Cruz DO LAB URINE ORDERABLES Final Re sult [facility] [address] [place] [address], [facility] [address] [place] [address] * RECURRENT VAGINITIS (HTRX) (11/20/2024 10:51 AM EDT) [facility] ATOPOBIUM VAGINAE 0 19.961 - 24.689 ppm 11/21/2024 5:57 AM EDT [facility] ATOPOBIUM VAGINAE Not Detected 19.961 - 24.689 ppm 11/21/2024 5:57 AM EDT [facility] BVAB 2,3 (BACTERIAL VAGINOSIS ASSOCIATED BACTERIA 2, 3); MOBILUNCUS SPP 0 19.961 - 24.689 ppm 11/21/2024 5:57 AM EDT [facility] BVAB 2,3 (BACTERIAL VAGINOSIS ASSOCIATED BACTERIA 2, 3); MOBILUNCUS SPP Not Detected 19.961 - 24.689 ppm 11/21/2024 5:57 AM EDT [facility] GLORIA ALBICANS, PARAPSILOSIS, TROPICALIS 0 23.000 - 30.347 ppm 11/21/2024 5:57 AM EDT [facility] GLORIA ALBICANS, PARAPSILOSIS, TROPICALIS Not Detected 23.000 - 30.347 ppm 11/21/2024 5:57 AM EDT [facility] GLORIA GLABRATA 0 23.000 - 31.618 ppm 11/21/2024 5:57 AM EDT [facility] GLORIA GLABRATA Not Detected 23.000 - 31.618 ppm 11/21/2024 5:57 AM EDT [facility] GLORIA KRUSEI 0 23.000 - 30.873 ppm 11/21/2024 5:57 AM EDT [facility] GLORIA KRUSEI Not Detected 23.000 - 30.873 ppm 11/21/2024 5:57 AM EDT [facility] CHLAMYDIA TRACHOMATIS 0 23.000 - 31.586 ppm 11/21/2024 5:57 AM EDT [facility] CHLAMYDIA TRACHOMATIS Not Detected 23.000 - 31.586 ppm 11/21/2024 5:57 AM EDT [facility] GARDNERELLA VAGINALIS 0 19.961 - 24.689 ppm 11/21/2024 5:57 AM EDT [facility] GARDNERELLA VAGINALIS Not Detected 19.961 - 24.689 ppm 11/21/2024 5:57 AM EDT [facility] MEGASPHAERA (TYPES 1, 2) 0 19.961 - 24.689 ppm 11/21/2024 5:57 AM EDT [facility] MEGASPHAERA (TYPES 1, 2) Not Detected 19.961 - 24.689 ppm 11/21/2024 5:57 AM EDT [facility] NEISSERIA GONORRHOEAE 0 23.000 - 32.587 ppm 11/21/2024 5:57 AM EDT [facility] NEISSERIA GONORRHOEAE Not Detected 23.000 - 32.587 ppm 11/21/2024 5:57 AM EDT [facility] TRICHOMONAS VAGINALIS 0 23.000 - 31.995 ppm 11/21/2024 5:57 AM EDT [facility] TRICHOMONAS VAGINALIS Not Detected 23.000 - 31.995 ppm 11/21/2024 5:57 AM EDT [facility] MYCOPLASMA GENITALIUM 0 19.961 - 24.689 ppm 11/21/2024 5:57 AM EDT [facility] MYCOPLASMA GENITALIUM Not Detected 19.961 - 24.689 ppm 11/21/2024 5:57 AM EDT [facility] Tissue 11/20/2024 10:5 1 AM EDT 11/21/2024 1:16 AM EDT us Basim Martinez DO LAB BLOOD ORDERABLES Final Resul t [facility] [address] [address] * AFP, SERUM, OPEN SPINA BIFIDA (11/20/2024 10:37 AM EDT) [facility] RESULTS Report . TB TEST RESULTS: *Screen Negative* . TBH GEST. AGE ON COLLECTION DATE 18.0 . weeks TBH GESTAT. AGE BASED ON Ultrasound . [facility] Comment: 18.0 on 11/20/2024 Recalculations are not recommended when gestational dating by LMP and ultrasound are within 10 days. [age] DARWIN [age] [facility] RACE Other . [facility] WEIGHT 256 . lbs [facility] INSULIN DEP DIABETES No . [facility] MULTIPLE GESTATION No . H AFP VALUE 27.6 . ng/mL [facility] AFP MOM 0.87 . [facility] [place] [place] [address] . [facility] INTERPRETATION Comment . [facility] Comment: Interpretation: Screen Negative This result [...] Customer Services to discuss available options. The [employer] recommends amniocentesis be offered to women age 35 and older. COMMENT: Comment . [facility] Comment: Gisel Gandhi, Ph.D., [facility] Director References: Available Upon Request. Multiples Of Median Cutoffs For AFP Elevations [place] 2.5 Black 2.8 IDD 2.0 Twins 4.5 Abbreviation Definitions IDD - Insulin Dep Diabetes OSBR - Open Spina Bifida Risk For further inquiries contact [employer] at [phone]. This test was developed and its performance characteristics determined by [employer]. It has not been cleared or approved by the Food and Drug Administration. Performed at: [facility] [place], [place] [id number] Card Stripper: Lorena Ellis [facility], Phone: [phone] 11/20/2024 10:3 7 AM EDT 11/20/2024 10:49 AM EDT Narrative [facility] - 11/22/2024 1:07 AM EDT N N ULTRASOUND [id number] 18 N 1 [address] White/ us Basim Martinez DO LAB BLOOD ORDERABLES Final Resul t [facility] * ALL THYROID STIM HORMONE (11/20/2024 10:37 AM EDT) THYROID STIMULATING HORMONE 1.702 0.358 - 3.740 uIU/mL [facility]H 11/20/2024 10:3 7 AM EDT 11/20/2024 10:49 AM EDT Narrative [facility] - 11/20/2024 11:26 AM EDT us Basim Juan DO [facility] Final Result Performing Organization Address City/[facility]/ZIP Co de Phone Number [facility] * BOX TEST (10/10/2024 11:18 AM EDT) BOX TEST SENT OUT UNITY TB BOX1 [facility] BOX2 10-10-24 [facility] 10/10/2024 11:1 8 AM EDT 10/10/2024 11:22 AM EDT Narrative [facility] - 10/10/2024 11:23 AM EDT UNITY BOX us Basim Juan DO LAB BLOOD ORDERABLES Final Resul t Performing Organization Address [facility] Co de Phone Number [facility] from Last 3 Months Additional Health Concerns Active Problems Noted Date Diagnosed Date OB Reminders 10/22/2024 Insurance [facility] MEDICAID [place] Care Teams Sales And Support Center Agent Relationship Specialty Start Date End Date Amanda Ford NP [facility] [place] [address] PCP - General Family Medicine 01/17/23
--- OUTSIDE RECORDS SUMMARY | 2025-01-09 10:51 | XMS_ITS | Encounter Summary ---
Author Organization [employer] Address [facility]-[id number] [address] [place] [address] Care Team Providers Care Thermal Technician Name Role Phone No Pcp, No Pcp Primary Care Provider Unavailabl e Reason for Referral * Diagnostic Imaging (Routine) - Pending Review Specialty Diagnoses / Procedures Referred By Saud tavera Referred To Contact Maternal and Medicine Diagnoses Previous gastric bypass affecting , antepartum Hypothyroidism affecting in second trimester 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 ([facility]) Obesity affecting in second trimester, unspecified obesity type Procedures [facility] with or without consult Latricia Garcia MD [address] [address] Phone: tel: fax: Maternal- Medicine at [facility] [address] [place] [address] Phone: tel: fax: Referral ID Status Reason Start Date Expiration Date V isits Requested Visits Authorized [id number] Pending Review 01/04/2025 01/04/2026 1 1 Encounter Details Date Type Department Care Team (Late st Contact Info) Description 01/04/2025 Orders Only Maternal- Medicine at [facility] [address] [place] [address] Krystyna iDck RN Previous gastric bypass affecting , antepartum (Primary Dx); Hypothyroidism affecting in second trimester; 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 ([facility]); Obesity affecting in second trimester, unspecified obesity type Social History Tobacco Use Types Packs/Day Years [...] Care Team (Late st Contact Info) Description 02/07/2025 9:45 AM EDT Appointment Maternal Medicine [place] [address] [facility] [address] [place] [address] Scheduled Orders Name Type Priority Associated Diagnoses Orde r Schedule US MFM with or without consult Imaging Routine Previous gastric bypass affecting , antepartum Hypothyroidism affecting in second trimester 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 ([facility]) Obesity affecting in second trimester, unspecified obesity type Expected: 02/03/2025 (Approximate), Expires: 01/04/2026 documented as of this encounter Visit Diagnoses Diagnosis Previous gastric bypass affecting , antepartum- Primary Hypothyroidism affecting in second trimester 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 ([facility]) Obesity affecting in second trimester, unspecified obesity type documented in this encounter Care Teams Thermal Technician Relationship Specialty Start Date End Date No Pcp, [place] [address] PCP - General Family Medicine 05/20/20 documented as of this encounter
--- OUTSIDE RECORDS SUMMARY | 2025-01-09 10:51 | XMS_ITS | Clinical Summary ---
Author Organization [facility] Address [address], [address] [place] [address] Care Team Providers Care Box Toe Cutter Name Role Phone Robin Marquez MD Primary Care Provider [phone] Allergies No known active allergies Medications levothyroxine [...] mouth daily Active Multiple Vitamins-Minera ls (THERAPEUTIC MULTIVITAMIN-[place] NERALS) tablet Take 1 tablet by mouth [...] 4:42 PM 05/08/2020 3:13 PM Care Teams Box Toe Cutter Relationship Specialty Start Date End Date Robin Marquez MD [address] [phone] PCP - General Family Medicine 10/10/18
--- OUTSIDE RECORDS SUMMARY | 2025-01-09 10:51 | XMS_ITS | Encounter Summary ---
Author Organization [facility] Address [address] [place] [address] Phone Care Team Providers Care Bass Fisher Name Role Phone Unavailable Primary Care Provider Unavailabl e Encounter Details Date Type Department Care Team (Late st Contact Info) Description 05/02/2024 Scanned Document Yelena Castanon Pavilimanisha [address] [address] [place] [address] [address] Department of SENIOR SECURITY ENGINEER-[place] [address] Social History Tobacco Use Types Packs/Day Years [...]
--- OUTSIDE RECORDS SUMMARY | 2025-01-09 10:51 | XMS_ITS | Encounter Summary ---
Author Organization [facility] Address [address] [place] [address] Care Team Providers Care Talent Assistant Name Role Phone Logan Amanda Nikole FUNDRAISER Primary Care Provider Encounter Details Date Type Department Care Team (Late Contact Info) Description 01/07/2025 Abstract [facility] [address] [place] [place] [address] Les Martinez DO [address] [facility] [address] [facility] [address] [place], [place] [address] Social History Tobacco Use Types Packs/Day Years [...] Department Care Team (Late Contact Info) Description 01/16/2025 11:20 AM EDT Routine [facility] HERNANDEZ [address] [place] [address] Mima Duenas NP [address] [facility] [address] [place] [address] 02/20/2025 1:00 PM EST Office Visit [facility] [address] [facility] [place] [address] Les Martinez DO [address] [facility] [place], [place] [address] 08/21/2025 9:30 AM EDT Office Visit [facility] [place] [facility] [address] [place] [address] Darleen Sinclair MD [address] [place] [address] documented as of this encounter Goals Goal Patient Goal Type Associated Problems Recent Progress Patient-Stated? Author Reminders Care Plan OB Reminders No Open Scheduling, Background documented as of this encounter Visit Diagnoses Not on filedocumented in this encounter Additional Health Concerns Active Problems Noted Date Diagnosed Date OB Reminders 10/22/2024 documented as of this encounter Care Teams Talent Assistant Relationship Specialty Start Date End Date Amanda Ford NP [address] [facility] [address] [place], [place] [phone] PCP - General Family Medicine 01/17/23 documented as of this encounter
--- OUTSIDE RECORDS SUMMARY | 2025-01-09 10:51 | XMS_ITS | Encounter Summary ---
Author Organization [facility] Address [address] [facility], [address] [place] [address] Care Team Providers Care Calciminer Name Role Phone Robin Marquez MD Primary Care Provider [phone] Reason for Visit * Reason Comments Medication Refill Encounter Details Date Type Department Care Team (Late st Contact Info) Description 03/08/2019 Refill [facility] [address] [place] [address] [place] [address] Christina Arreguin, ELECTRICAL SIGN SERVICER - CERTIFIED REAL ESTATE APPRAISER Medication Refill Social History Tobacco Use Types [...] documented as of this encounter Care Teams Calciminer Relationship Specialty Start Date End Date Robin Marquez MD [address] [place] [address] PCP - General Family Medicine 10/10/18 documented as of this encounter
--- OUTSIDE RECORDS SUMMARY | 2025-01-09 10:51 | XMS_ITS | Encounter Summary ---
Author Organization [facility] Address [address] [place] [address] Care Team Providers Care Claim Processor Name Role Phone Amanda Ford DOWEL POINTER Primary Care Provider Encounter Details Date Type Department Care Team (Late st Contact Info) Description 01/08/2025 Telephone [facility] [address] [place] [place] [address] Jojo Ames PA [address] [place], [facility] Social History Tobacco Use Types Packs/Day [...] encounter Miscellaneous Notes * Telephone Encounter - Lilibeth Green LPN - 01/08/2025 12:07 PM EDT I just had a quick general question. I have my order form to get my 1 hour glucose test done and I just wanted to see if I had to fast first. I have heard some different things. I do not remember hertelling me anything at my Appointment, I am sure she did. I just do not remember if I could just get a call back. Patient was called and made aware that she does not have to fast but eat a light breakfast or she can fast. Patient states that she will do eggs and toast ad then get the labs done. Patient did not have any further concerns or questions at this time. documented in this encounter Plan of Treatment Upcoming Encounters Date Type Department Care Team (Late st Contact Info) Description 01/16/2025 11:20 AM EDT Routine [facility] HERNANDEZ [address] [place] [address] Mima Duenas, TY [address] [facility] [place] [address] 02/20/2025 1:00 PM EST Office Visit [facility] HERNANDEZ [address] [place] [address] Les Martinez DO [address] [facility] [place] [address] 08/21/2025 9:30 AM EDT Office Visit [facility] [address] [place] [address] Darleen Sinclair MD [address] [place] [address] documented as of this encounter Goals Goal Patient Goal Type Associated Problems Recent Progress Patient-Stated? Author Reminders Care Plan OB Reminders No Open Scheduling, Background documented as of this encounter Visit Diagnoses Not on filedocumented in this encounter Additional Health Concerns Active Problems Noted Date Diagnosed Date OB Reminders 10/22/2024 documented as of this encounter Care Teams Claim Processor Relationship Specialty Start Date End Date Amanda Ford NP [address] [facility] [place] [address] PCP - General Family Medicine 01/17/23 documented as of this encounter
--- OUTSIDE RECORDS SUMMARY | 2025-01-09 10:51 | XMS_ITS | Clinical Summary ---
Author Organization [facility] Address [address] [place] [address] Care Team Providers Care Store Promoter Name Role Phone Unavailable Primary Care Provider [...] is lower risk 7 02/28/2024 Data from: https://www.neighborhoodatlas.medicine.[facility].edu/. Last address used for calculation [address] [...] (Ag/Ab) Nonreactive Nonreactive 04/03/2024 12:[address] [facility] HIV-1/2 AB (Confirmatory) 04/03/2024 12:[address] [facility] Comment:Test not indicated. HIV Interpretation 04/03/2024 12:[address] [facility] Comment: No evidence of HIV-1 or HIV-2 infection. Should recent infection be suspected, repeat testing may be considered 2-3 weeks after this draw. Cottle Rev. Code 3701.243(E): This information has been [...] EST 04/02/2024 3:22 PM EST Shelly Hernandez MANAGER PMO.AVIONICS SYSTEMS TECHNICIAN LABORATORY Final Result Performing Organization Address City/[facility]/ZIP Co de Phone Number [facility] [address] * HEPATITIS C ANTIBODY IA WITH CONFIRMATION (04/02/2024 3:21 PM EST) Hep C Antibody IA Negative Negative 04/03/2024 11:[address] [facility] Comment:The result suggests no evidence of active infection with Hepatitis C virus. Should recent infection be suspected, repeat testing may be considered 4-6 weeks after this draw. Blood BLOOD SPECIMEN / Unknown Venipuncture / Unknown 04/02/2024 3:21 PM EST 04/02/2024 3:22 PM EST Shelly Hernandez APRN.AVIONICS SYSTEMS TECHNICIAN LABORATORY Final Result Performing Organization Address City/[facility]/ZIP Co de Phone Number [facility] [address] from Last 3 Months or Most Recently Relevant to Health Maintenance Insurance [employer] BC[employer] MEDICAID [place]
--- OUTSIDE RECORDS SUMMARY | 2025-01-09 10:51 | XMS_ITS | Encounter Summary ---
Author Organization [facility] Address [address] [place] [address] Care Team Providers Care Assistant Elementary Teacher Name Role Phone Amanda Ford JAVA SWING DEVELOPER Primary Care Provider Encounter Details Date Type Department Care Team (Late st Contact Info) Description 10/22/2024 Abstract [facility] [address] [place] [address] Kerrie Babcock MA Social History Tobacco [...] EDT Routine [facility] HERNANDEZ [address] [place] [address] Mima Duenas, TY [address] [place] [address] 02/20/2025 1:00 PM EST Office Visit [facility] [address] [place] [address] Les Martinez DO [address] [place] [address] 08/21/2025 9:30 AM EDT Office Visit [facility] [place] [facility] [address] [place] [address] Darleen Sincliar MD [address] [place] [address] documented as of this encounter Goals Goal Patient Goal Type Associated Problems Recent Progress Patient-Stated? Author Reminders Care Plan OB Reminders No Open Scheduling, Background documented as of this encounter Visit Diagnoses Not on filedocumented in this encounter Additional Health Concerns Active Problems Noted Date Diagnosed Date OB Reminders 10/22/2024 documented as of this encounter Care Teams Assistant Elementary Teacher Relationship Specialty Start Date End Date Amanda Ford NP [address] [facility] [place] [address] PCP - General Family Medicine 01/17/23 documented as of this encounter
--- OUTSIDE RECORDS SUMMARY | 2025-01-09 10:51 | XMS_ITS | Encounter Summary ---
Author Organization [facility] Address [id number] [address] [place] [address] Care Team Providers Care Deodorizer Operator Name Role Phone No Pcp, No Pcp Primary Care Provider Unavailabl e Encounter Details Date Type Department Care Team (Late st Contact Info) Description 01/03/2025 Telephone Maternal Medicine Mobile [address] [facility] [address] [place] [address] Roslyn Griffin RN Social History Tobacco Use Types Packs/Day [...] encounter Miscellaneous Notes * Telephone Encounter - Roslyn Griffin RN - 01/03/2025 3:44 PM EDT Called patient to schedule her follow up survey in 4-6 weeks per appointment tracker. No answer left message to call back to schedule the follow up ultrasound. documented in this encounter Plan of Treatment Upcoming Encounters Date Type Department Care Team (Late st Contact Info) Description 02/07/2025 9:45 AM EDT Appointment Maternal Medicine Mobile [address] [facility] [address] [place] [address] documented as of this encounter Visit Diagnoses Not on filedocumented in this encounter Care Teams Deodorizer Operator Relationship Specialty Start Date End Date No Pcp, No Pcp LUKE Owens [address] PCP - General Family Medicine 05/20/20 documented as of this encounter
--- OUTSIDE RECORDS SUMMARY | 2025-01-09 10:51 | XMS_ITS | Encounter Summary ---
Author Organization [facility] Address [address] [place] [address] Care Team Providers Care Order Desk Caller Name Role Phone Jovaninikkie Amanda Nikole DIVISION SUPERVISOR Primary Care Provider Encounter Details Date Type Department Care Team (Late Contact Info) Description 10/17/2024 Abstract [facility] [address] [facility] [place] [address] Les Martinez DO [address] [facility] [address] [place], [place] [address] Social History Tobacco Use Types Packs/Day Years [...] 11:20 AM EDT Routine [facility] HERNANDEZ [address] [place] [address] Mima Duenas NP [address] [facility] [place] [address] 02/20/2025 1:00 PM EST Office Visit [facility] [address] [facility] [place] [address] Les Martinez DO [address] [facility] [address] [place] [place], [place] [address] 08/21/2025 9:30 AM EDT Office Visit [facility] [place] [facility] [address] [place] [address] Darleen Sinclair MD [address], [address] [place] [address] documented as of this encounter Visit Diagnoses Not on filedocumented in this encounter Care Teams Order Desk Caller Relationship Specialty Start Date End Date Amanda Ford NP [address] [facility] [address] [place] [phone] PCP - General Family Medicine 01/17/23 documented as of this encounter
--- OUTSIDE RECORDS SUMMARY | 2025-01-09 10:51 | XMS_ITS | Encounter Summary ---
Author Organization [facility] Address [address] [place] [address] Care Team Providers Care Package Pick Up Name Role Phone Mariam Fordfer Nikole WELL DIGGER Primary Care Provider Encounter Details Date Type Department Care Team (Late Contact Info) Description 12/05/2024 External Result Encounter [facility] HERNAN[facility]Z [address] [place] [address] Basim Martinez DO [address] [place], [place] [address] Social History Tobacco Use Types Packs/Day Years [...] 11:20 AM EDT Routine [facility] HERNANDEZ [address] [place] [address] Mima Duenas, TY [address] [facility] [place] [address] 02/20/2025 1:00 PM EST Office Visit [facility] [place] [facility] [address] [facility] [place] [address] Basim Mratinez, [address] [facility] [address] [place], [place] [address] 08/21/2025 9:30 AM EDT Office Visit [facility] [address] [place] [address] Darleen Sinclair MD [address] [place] [address] documented as of this encounter [...] PM EDT THIS EXAM WAS PERFORMED AT [facility] NAME: MARIA EUGENIA HINDS : 1995 SEX: F Accession Number: [id number] ORDERING PHYSICIAN: ENRIKE LINDQUIST REFERRING PHYSICIAN: BASIM MARTINEZ Coding ----- --------- Procedures 34086: Ultrasound, uterus, real time with image documentation, and maternal evaluation plus detailed anatomic examination, transabdominal approach;single or first gestation 11816: Transvaginal Ultrasound (OB) Indication ----- --------- Screening for Anatomic Survey, Screening for cervical length, resulting from assisted reproductive technology- IUI, History of Gastric sleeve, Obesity in . History ----- --------- OB History 1. Para 0 [id number] Current ----- --------- Cell free DNA low [...] EFW (oz) 14 oz EFW by: Hadlock ([id number]-FL) Extended Tibia 27.0 mm 19w 5d 43% Gayle Lockstitch Front Maker 8.2 mm CM 4.2 mm 24% Nicolaides [...] Thorax RVOT view. LVOT view. 3-vessel view. 8-khnwrs-jbqrvfh view. Bicaval view. Ductal arch view. Great [...] 5.2 cm. Recommendations ----- --------- Please see [facility] documentation from today. The patient is scheduled in four to six week(s) to complete anatomic survey. Subsequent follow up or other follow up as clinically determined by primary OB provider unless otherwise specified by [facility]. Results forwarded to ordering provider so they can follow up with the patient as necessary. The copy-to physician of this order is BASIM Herring The ordering physician of this order is ENRIKE Alfaro Procedure Note Radiology, Radiologist, - 12/05/2024 THIS EXAM WAS PERFORMED AT [facility] NAME: MARIA EUGENIA HINDS : 1995 SEX: F Accession Number: [id number] ORDERING PHYSICIAN: ENRIKE LINDQUIST REFERRING PHYSICIAN: BASIM MARTINEZ Coding ----- --------- Procedures [id number]: Ultrasound, uterus, real time with imagedocumentation, and maternal evaluation plus detailed anatomic examination, transabdominalapproach;single or first gestation 69742: Transvaginal Ultrasound (OB) Indication ----- --------- Screening for Anatomic Survey, Screening for cervical length, Pregnancyresulting from assisted reproductive technology- IUI, History of Gastric sleeve, Obesity in . History ----- --------- OB History 1. Para 0 [id number] Current ----- --------- Cell free DNA low [...] EFW (oz) 14 oz EFW by: Hadlock ([id number]-[id number]) Extended Tibia 27.0 mm 19w 5d 43% Gayle Lockstitch Front Maker 8.2 mm CM 4.2 mm 24% Nicolaides [...] Thorax RVOT view. LVOT view. 3-vessel view. 7-rnszmi-pwgywlc view.Bicaval view. Ductal arch view. Great vessels. [...] documented as of this encounter Care Teams Package Pick Up Relationship Specialty Start Date End Date Amanda Ford NP [facility] [place] [address] PCP - General Family Medicine 01/17/23 documented as of this encounter
--- OUTSIDE RECORDS SUMMARY | 2025-01-09 10:51 | XMS_ITS | Encounter Summary ---
Author Organization [facility] Address [address] [place] [address] Care Team Providers Care Cake Knocker Name Role Phone Amanda Ford KICK PRESS OPERATOR Primary Care Provider Encounter Details Date Type Department Care Team (Late st Contact Info) Description 10/22/2024 Abstract [facility] [address] [place] [address] Kerrie Babcock MA Social History Tobacco [...] EDT Routine [facility] HERNAN[facility]Z [address] [place] [address] Mima Duenas, TY [address] [place] [address] 02/20/2025 1:00 PM EST Office Visit [facility] [address] [place] [address] Les Martinez DO [address] [place] [address] 08/21/2025 9:30 AM EDT Office Visit [facility] [place] [facility] [address] [place] [address] Darleen Sinclair MD [address], [address] [place] [address] documented as of this encounter Goals Goal Patient Goal Type Associated Problems Recent Progress Patient-Stated? Author Reminders Care Plan OB Reminders No Open Scheduling, Background documented as of this encounter Visit Diagnoses Not on filedocumented in this encounter Additional Health Concerns Active Problems Noted Date Diagnosed Date OB Reminders 10/22/2024 documented as of this encounter Care Teams Cake Knocker Relationship Specialty Start Date End Date Amanda Ford NP [address] [facility] [place] [address] PCP - General Family Medicine 01/17/23 documented as of this encounter
--- OUTSIDE RECORDS SUMMARY | 2025-01-09 10:51 | XMS_ITS | Clinical Summary ---
Author Organization [facility] Address [address] [place] [address] Phone Care Team Providers Care Chief Media Officer Name Role Phone Unavailable Primary Care [...] standard series) 2022 COVID-19 Vaccine (3 - 2024-2 6 season) 2024 08/19/2020, 07/22/2020 Influenza Vaccine (#1) 2024 Yearly [...] patient's age to complete this topic Insurance [facility] MEDICAID
--- OUTSIDE RECORDS SUMMARY | 2025-01-09 10:51 | XMS_ITS | Encounter Summary ---
Author Organization [facility] Address [address] [place] [address] Care Team Providers Care Engine Installer Name Role Phone Logan Amanda Nikole LINUX SECURITY ADMINISTRATOR Primary Care Provider Encounter Details Date Type Department Care Team (Late Contact Info) Description 09/20/2024 Abstract [facility] HERNANDEZ [address] [place] [address] Les Martinez DO [address] [facility] [address] [place], [place] [address] Social History Tobacco Use Types Packs/Day Years [...] 11:20 AM EDT Routine NOM[facility] HERNANDEZ [address] [place] [address] Mima Duenas NP [address] [facility] [place] [address] 02/20/2025 1:00 PM EST Office Visit [facility]Z [address] [facility] [place] [place] [address] Les Martinez DO [address] [facility] [address] [place], [place] [phone] 08/21/2025 9:30 AM EDT Office Visit [facility] [place] [facility] [address] [place] [phone] Darleen Sinclair MD [address], [address] [place] [address] documented as of this encounter Visit Diagnoses Not on filedocumented in this encounter Care Teams Engine Installer Relationship Specialty Start Date End Date Amanda Ford NP [address] [facility] [address] [place] [phone] PCP - General Family Medicine 01/17/23 documented as of this encounter
--- OUTSIDE RECORDS SUMMARY | 2025-01-09 10:51 | XMS_ITS | Encounter Summary ---
Author Organization [facility] Address [address] [place] [address] Care Team Providers Care Deep Submergence Vehicle Crewmember Name Role Phone JovaniAmanda lundy Nikole DEDENTER Primary Care Provider Encounter Details Date Type Department Care Team (Late st Contact Info) Description 03/02/2024 Orders Only [facility] HERNANDEZ [address] [place] [address] Esperanza [place], [place] [address] [place] [address] Social History Tobacco Use Types Packs/Day Years [...] 11:20 AM EDT Routine [facility] HERNANDEZ [address] [facility] [place] [place] [address] Mima Duenas, TY [address] [place] [address] 02/20/2025 1:00 PM EST Office Visit [facility] HERNANDEZ [address] [facility] [place] [address] Les Martinez DO [address] [facility] [place] [address] 08/21/2025 9:30 AM EDT Office Visit [facility] [address] [place] [address] Darleen Sinclair MD [address], [address] [place] [address] documented as of this encounter Procedures [...] on filedocumented in this encounter Care Teams Deep Submergence Vehicle Crewmember Relationship Specialty Start Date End Date Amanda Ford NP [address] [facility] [place] [address] PCP - General Family Medicine 01/17/23 documented as of this encounter
--- OUTSIDE RECORDS SUMMARY | 2025-01-09 10:51 | XMS_ITS | Encounter Summary ---
Author Organization [facility] Address [id number] [address] [place] [address] Care Team Providers Care Aircraft Fuselage Framer Name Role Phone No Pcp, No Pcp Primary Care Provider Unavailabl e Encounter Details Date Type Department Care Team (Latest Contact Info) Description 01/03/2025 Travel Social History Tobacco Use Types Packs/Day [...] Care Team ( st Contact Info) Description 02/07/2025 9:45 AM EDT Appointment Maternal Medicine [place] [address] [place] [address] documented as of this encounter Visit Diagnoses Not on filedocumented in this encounter Care Teams Aircraft Fuselage Framer Relationship Specialty Start Date End Date No Pcp, [place] [address] PCP - General Family Medicine 05/20/20 documented as of this encounter
--- OUTSIDE RECORDS SUMMARY | 2025-01-09 10:52 | XMS_ITS | Patient Health Record ---
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 Problem Anxiety state (076588783) Anxiety state, unspecified (F41.1) Active confirmed Problem Long-term current use of drug therapy (786708825) High risk medications (not anticoagulants) long-term use (Z79.899) Active confirmed Problem Bipolar affective disorder, currently manic, mild (794634184) Bipolar disorder, current episode manic without psychotic features, mild (F31.11) Active confirmed Vital Signs Heart Rate 84 /min 10/24/2024 Oximetry 98 % 10/24/2024 Blood pressure diastolic 68 mm Hg 10/24/2024 Height 71 in 10/24/2024 Blood pressure systolic 124 mm Hg 10/24/2024 Weight 218.2 lbs 10/24/2024 BMI 30.43 kg/m2 10/24/2024 Encounters Encounter Location Date Provider Diagnosis [facility] [address] [place] [address] 01/25/2024 [place] [address] [place] [address] 02/24/2024 [place] [address] [place] [address] 05/10/2024 [facility] Bipolar disorder, current episode manic without psychotic features, mild F31.11 and Anxiety state, unspecified F41.1 [facility] [address] [place] [address] 05/24/2024 [facility] Bipolar disorder, current episode manic without psychotic features, mild F31.11 [facility] [address] [place] [address] 01/07/2025 Julieta Jefferson Bipolar disorder, current episode manic without psychotic features, mild F31.11 [facility] [address] [place] [address] 01/25/2024 Julieta Jefferson Bipolar disorder, current episode manic without psychotic features, mild F31.11 [facility] [address] [place] [address] 04/25/2024 Julieta Jefferson Bipolar disorder, current episode manic without psychotic features, mild F31.11 and Anxiety state, unspecified F41.1 [facility] [address] [place] [address] 08/24/2024 Jennifer Hahn Bipolar disorder, current episode manic without psychotic features, mild F31.11 and Anxiety state, unspecified F41.1 [facility] [address] [place] [address] 09/25/2024 Jennifer Hahn Bipolar disorder, current episode manic without psychotic features, mild F31.11 [facility] [address] [place] [address] 10/24/2024 Jennifer Hahn Bipolar disorder, current episode [...] consented to the start/continuation of the treatment. 01/07/2025 Bipolar disorder, current episode manic without psychotic features, mild (ICD-10 - F31.11) 05/10/2024 Bipolar disorder, current episode manic without [...] increasing protein as appropriate. Discussed referral to import export coordinator if problem persists. . . Continue current [...] - F31.11) cont current treatment transfer to [facility] pharmacy . . Informed consent obtained: YES, we discussed the diagnosis/diagnoses , the treatment options, treatment(s) recommended vs. no treatment. We discussed risks and benefits of treatment options, treatment recommendations vs. no treatment. . . Discussed lifestyle/diet changes to help improve BMI. Recommend increasing activity, reducing portion sizes, limiting carbohydrates, increasing protein as appropriate. Discussed referral to import export coordinator if problem persists. . . Second generation [...] [facility] [address] [place] [address] [id number] GUZMAN DEL CID Self - patient is the insured 3 [facility] [address] [place] [address] [id number] GUZMAN DEL CID Self - patient is the insured 3 [facility] [address] [place] [address] [id number] GUZMAN DEL CID Self - patient is the insured 1 2 [employer]ter[employer] [address] [place] [address] [id number] GUZMAN DEL CID Self - patient is the insured 1 3 [facility] MEDICAID [facility] after [employer] [address] [place] [address] [id number] GUZMAN DEL CID Self - patient is the insured 1 3 Medical (General) History Medical History History ICD Code obesity bipolar hypothyroid Surgical History Surgery Date(Month/Year) cholecystectomy gastric SLEEVE 04/2020
--- OUTSIDE RECORDS SUMMARY | 2025-01-09 10:52 | XMS_ITS | Encounter Summary ---
Author Organization [facility] tem Address [id number] [address] [place] [address] Care Team Providers Care Database Operator Name Role Phone No Pcp, No Pcp Primary Care Provider Unavailabl e Encounter Details Date Type Department Care Team (Late Contact Info) Description 12/04/2024 Orders Only Maternal- Medicine at [facility] [address] [place] [id number] Ref Prov, [place] [address] Social History Tobacco Use Types Packs/Day Years [...] Department Care Team (Late Contact Info) Description 02/07/2025 9:45 AM EDT Appointment Maternal Medicine [place] [address] [place] [address] documented as of this encounter [...] on filedocumented in this encounter Care Teams Database Operator Relationship Specialty Start Date End Date No Pcp, [place] [address] PCP - General Family Medicine 05/20/20 documented as of this encounter
--- OUTSIDE RECORDS SUMMARY | 2025-01-09 10:52 | XMS_ITS | Encounter Summary ---
Author Organization [facility] tem Address [facility]-[id number] [address] [place] [address] Care Team Providers Care Glue Wheel Operator Name Role Phone No Pcp, No Pcp Primary Care Provider Unavailabl e Encounter Details Date Type Department Care Team (Late st Contact Info) Description 12/04/2024 Abstract Maternal- Medicine at [facility] [address] [place] [phone] Latricia Garcia MD [address] [facility], [address] [place] [address] Social History Tobacco Use Types Packs/Day Years [...] 02/07/2025 9:45 AM EDT Appointment Maternal Medicine [place] [address] [facility] [address] [place] [address] documented as of this encounter Visit Diagnoses Not on filedocumented in this encounter Care Teams Glue Wheel Operator Relationship Specialty Start Date End Date No Pcp, [place] [address] PCP - General Family Medicine 05/20/20 documented as of this encounter
--- OUTSIDE RECORDS SUMMARY | 2025-01-09 10:52 | XMS_ITS | Encounter Summary ---
Author Organization [facility] Address [address] [place] [address] Care Team Providers Care Painter Tumbling Barrel Name Role Phone Amanda Ford RN TRAVELING Primary Care Provider Encounter Details Date Type Department Care Team (Late st Contact Info) Description 01/19/2023 Clinisync Result Encounter [facility] External Department Unsolicited Basim Martinez, DO [address] [place], [place] [address] Social History Tobacco Use Types Packs/Day Years [...] Info) Description 01/16/2025 11:20 AM EDT Routine [facility] [address] [place] [address] Mima Duenas, RN TRAVELING [address] [place] [address] 02/20/2025 1:00 PM EST Office Visit [facility] [place] [address] [facility] [place] [address] Basim Martinez DO [address] [facility] [place] [address] 08/21/2025 9:30 AM EDT Office Visit [facility] [address] [place] [address] Darleen Sinclair MD [address] [place] [address] documented as of this encounter Procedures Procedure [...] EDT Narrative 01/19/2023 3:46 PM EDT The [address] [address] Ultrasound Report Signed Patient: GUZMAN DEL CID MR#: [id number] : 1995 Acct:[id number] Age/Sex: 27 / F ADM Date: 01/19/23 Loc: US Attending Dr: Basim Martinez D.O. Ordering Physician: Basim Martinez D.O. Date of Service: 01/19/23 Procedure(s): US pelvis transvaginal Accession Number(s): [id number] cc: Basim Martinez D.O.; AMANDA FORD [place] [id number] Patient Name: GUZMAN DEL CID MRN: [id number] date: 1995 Sex: F Assigned Patient Location: US Current Patient Location: US Accession/Order Number: [id number] Exam Date: 01/19/2023 14:15 Report Date: 01/19/2023 [...] Signed By: 01/19/23 1549 DD/ 1546 TD/TT: Mine Engineering Superintendent: Procedure Note Radiology, Radiologist, MD - 01/19/2023 [place] [address] Ultrasound Report Signed Patient: GUZMAN DEL CIDMR#: [id number] : 1995Acct:[id number] Age/Sex: 27 / FADM Date: 01/19/23 Loc: US Attending Dr: Basim Martinez D.O. Ordering Physician: Basim Martinez D.O. Date of Service: 01/19/23 Procedure(s): US pelvis transvaginal Accession Number(s): [id number] cc: Basim Martinez D.O.; AMANDA FORD [place] [address] Patient Name: GUZMAN DEL CID MRN: [id number] date: 1995 Sex: F Assigned Patient Location: US Current Patient Location: US Accession/Order Number: [id number] Exam Date: 01/19/2023 14:15 Report Date: 01/19/2023 [...] M.D. Signed By:01/19/23 1549 DD/ 1546 TD/TT: Mine Engineering Superintendent: us Basim Juan DO [facility] Final Result * ALL DEHYDROEPIANDROSTERONE (01/19/2023 2:10 PM EDT) Pathologist [facility] DHEA, SERUM 141 31 - 701 ng/dL [facility] Comment: This test was developed and its performance characteristics determined by [facility]. It has not been cleared or approved by the Food and Drug Administration. Performed at: [address] [id number] Clean Room Assembler: Jon Horton MD, Phone: [phone] 01/19/2023 2:10 PM EDT 01/19/2023 2:12 PM EDT Narrative [facility] - 01/25/2023 6:[address] [facility] Juna [facility] Final Result [facility] * ALL ANTI-MULLERIAN HORMONE (01/19/2023 2:10 PM EDT) [facility] ANTI-MULLERIAN HORMONE (AMH) 0.895 . ng/mL [facility] Comment: For assays employing antibodies, the possibility exists for interference by heterophile antibodies in the samples.1 1.Yessenia Mayfield. Interferences in Immunoassays - still a threat. Clin. Chem. 2000; 46: 9608-0561. This test was developed and its performance characteristics determined by [facility]. It has not been cleared or approved by the Food and Drug Administration. Reference Range: Females 26 - 30y: 1.03 - 11.10 Median 4.20 AMH concentrations of >= 1.06 ng/mL is correlated with a better response to ovarian stimulation, produced more retrievable oocytes and higher odds of live according to Gleicher et al. Fertility and Sterility. 2010: 94:9937-6121. The current AMH test method correlates with [...] exclude an AMH-secreting ovarian tumor. Performed at: [facility] [address] [place] [id number] Clean Room Assembler: James Pereyra MD, Phone: [phone] 01/19/2023 2:10 PM EDT 01/19/2023 2:12 PM EDT Narrative [facility] - 01/23/2023 8:07 PM EDT us Basim Juan DO [facility] Final Result Performing Organization Address City/[facility]/ZIP Co de Phone Number [facility] TB * (ABNORMAL) [facility] PROLACTIN (01/19/2023 2:10 PM EDT) PROLACTIN 4.4(A) 4.8 - 23.3 ng/mL [facility] Comment: Performed at: [address] [id number] Clean Room Assembler: Isaac Dietz PhD, Phone: [phone] 01/19/2023 2:10 PM EDT 01/19/2023 2:12 PM EDT Narrative [facility] - 01/20/2023 4:07 AM EDT Basim Juan DO [facility] Final Result Performing Organization Address City/[facility]/ZIP [facility] de [facility] Number [facility] * ALL FOLLICLE STIMULATING HORMONE (01/19/2023 2:10 PM EDT) FSH 8.4 . mIU/mL [facility] Comment: Adult Female: Follicular phase 3.5 - 12.5 Ovulation phase 4.7 - 21.5 Luteal phase 1.7 - 7.7 Postmenopausal 25.8 - 134.8 01/19/2023 2:10 PM EDT 01/19/2023 2:12 PM EDT Narrative [facility] - 01/20/2023 4:07 AM EDT us Basim Juan DO [facility] Final Result Performing Organization Address City/[facility]/ZIP Co de Phone Number [facility] * [...] DO CLINIS[facility]NC Final Result Performing Organization Address [facility] Co de Phone Number [facility] * ALL DHEA SULFATE (01/19/2023 2:10 PM EDT) DHEA-SULFATE 91.4 84.8 - 378.0 ug/dL [facility] 01/19/2023 2:10 PM EDT 01/19/2023 2:12 PM EDT Narrative [facility]IN[facility] - 01/20/2023 4:07 AM EDT Basim Juan DO [facility] Final Result Performing Organization Address City/[facility] Co de Phone Number CLIN[facility]CA TB documented in this encounter Visit Diagnoses Not on filedocumented in this encounter Care Teams Painter Tumbling Barrel Relationship Specialty Start Date End Date Amanda Ford NP [address] [place] [address] [place] [address] PCP - General Family Medicine 01/17/23 documented as of this encounter
--- OUTSIDE RECORDS SUMMARY | 2025-01-09 10:52 | XMS_ITS | Patient Health Record ---
Author Organization [facility] [place] Address [address] [place] [address] Care Team Providers Care Central Office Repairer Name Role Phone Robin Marquez MD Primary Care Provider Unavail able Reason For Referral No Information Plan Of Treatment No Information
--- OUTSIDE RECORDS SUMMARY | 2025-01-09 10:52 | XMS_ITS | Encounter Summary ---
Author Organization [facility] Address [address] [place] [address] Care Team Providers Care Patch Driller Name Role Phone Amanda Ford ATTENDANCE SECRETARY Primary Care Provider Encounter Details Date Type Department Care Team (Late Contact Info) Description 05/04/2023 Abstract [facility] [address] [place] [address] Lilibeth Green LPN [address] [place] [address] Social History Tobacco Use Types Packs/Day Years [...] 11:20 AM EDT Routine [facility] [address] [place] [address] Mima Duenas, ATTENDANCE SECRETARY [address] [address] 02/20/2025 1:00 PM EST Office Visit [facility] [address] [facility] [place] [address] Les Martinez DO [address] [facility] [place] [address] 08/21/2025 9:30 AM EDT Office Visit [facility] [address] [place] [address] Darleen Sinclair MD [address] [place] [address] documented as of this encounter Visit Diagnoses Not on filedocumented in this encounter Care Teams Patch Driller Relationship Specialty Start Date End Date Amanda Ford NP [address] [place] [address] [place] [address] PCP - General Family Medicine 01/17/23 documented as of this encounter
--- OUTSIDE RECORDS SUMMARY | 2025-01-09 10:52 | XMS_ITS | Clinical Summary ---
Author Organization [employer] Address [id number] [address] [place] [address] Care Team Providers Care Sliver Lap Tender Name Role Phone No Pcp, No Pcp Primary Care Provider Unavailabl e Allergies Active Allergy Reactions Criticality Noted Date Comments Nsaids (Non-Steroidal Anti-I nflammatory Drug) 10/26/2024 Medications [id number] c acid ( 19) 29 mg iron- [...] Encounters Date Type Department Care Team Description 01/04/2025 Orders Only Maternal- Medicine at [facility] [address] [place] [phone] Krystyna Dick RN Previous gastric bypass affecting , antepartum (Primary Dx); Hypothyroidism affecting in second trimester; 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 (CMS-HCC); Obesity affecting in second trimester, unspecified obesity type 01/03/2025 Telephone [facility] [place] [address] [address] Roslyn Griffin RN 01/03/2025 Travel 12/05/2024 2:00 PM EDT Office Visit Maternal- Medicine at [facility] [address] [place] [phone] Enrike Garcia MD 20 weeks gestation of (Primary Dx); Previous gastric bypass affecting , antepartum; Obesity affecting in second trimester, unspecified obesity type; Hypothyroidism affecting in second trimester; 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 ([facility]-HCC); headache in second trimester 12/05/2024 12:36 PM EDT - 12/05/2024 11:59 PM EDT Hospital Encounter [facility] - [facility] [address] [place] [phone] Screening, , for anatomic survey Discharge Disposition: Home 12/05/2024 Orders Only Maternal- Medicine at [facility] [address] [place] [phone] Chiquita Shen RN Previous gastric bypass affecting , antepartum (Primary Dx); Hypothyroidism affecting in second trimester; 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 (CMS-HCC); Obesity affecting in second trimester, unspecified obesity type; Encounter for supervision of resulting from assisted reproductive technology, antepartum 12/05/2024 Travel 12/04/2024 Telephone Maternal- Medicine at [facility] [address] [place] [address] Cihquita Shen RN 12/04/2024 Orders Only Maternal- Medicine at [facility] [address] [place] [address] Ref Prov, Not In System 12/04/2024 Abstract Maternal- Medicine at [facility] [address] [place] [address] Enrike Garcia MD 10/26/2024 Orders Only Maternal- Medicine at [facility] [address] [place] [address] Ref Prov, Not In System 10/26/2024 Abstract Maternal- Medicine at [facility] [address] [place] [address] Enrike Garcia MD from Last 3 Months [...] 02/07/2025 9:45 AM EDT Appointment [facility] [place] [address] [facility] [address] [place] [address] Health Maintenance Due Date Last Done Comments Depression Screening 2007 Adult BMI Follow Up Plan 2013 Pap Smear 2016 COVID-19 Vaccine ( season) 12/17/202407/2020, 07/22/2020 Influenza Vaccine 12/17/2024 Adult BMI Screening 12/05/2025 12/05/2024 Tobacco Screening 12/05/2025 12/05/2024 DTaP,Tdap and Td Vaccines (2 - Td or Tdap) 12/25/2032 12/25/2022 Medical Devices Not on file Procedures Procedure Name Priority Date/Time Associated Diagnosis Comments US MFM OB FOLLOW-UP, 1 FETUS Routine 01/03/2025 3:09 PM EDT Previous gastric bypass affecting , antepartum Hypothyroidism affecting in second trimester 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 ([facility]-HCC) Obesity affecting in second trimester, unspecified obesity type Encounter for supervision of resulting from assisted reproductive technology, antepartum US MFM COMPREHENSIVE ANATOMIC SURVEY Routine 12/05/2024 2:42 PM EDT Screening, , for anatomic survey UNLISTED LAB TEST Routine 10/18/2024 2:3 7 PM EDT UNLISTED LAB TEST Routine 10/16/2024 2:3 6 PM EDT from Last 3 Months Results * US MFM OB FOLLOW-UP, 1 FETUS (01/03/2025 3:09 PM EDT) Only the most recent of2 resultswithin the time period is included. Anatomical Region Laterality Modality [employer] Ultrasound 01/03/2025 2:30 PM EDT Narrative 01/04/2025 6:22 PM EDT NAME: MARIA EUGENIA HINDS : 1995 SEX: F Accession Number: [id number] ORDERING PHYSICIAN: ENRIKE GARCIA REFERRING PHYSICIAN: BASIM BIRMINGHAM Coding ----- --------- Procedures 57694: Follow-up Ultrasound, per fetus Indication ----- --------- Screening for follow-up survey, resulting from assisted reproductive technology- IUI, History of Gastric sleeve, Obesity in . History ----- --------- OB History 1. Para 0 [id number] Current ----- --------- Cell free DNA low risk analysis Maternal Assessment ----- --------- Physical Exam Height 180 cm, 5 ft 11 in. Initial weight 102 kg, 224 lb. Initial BMI 31.24 kg/m Method ----- --------- Transabdominal ultrasound examination. View: Suboptimal view: limited by maternal body habitus Images of optimal diagnostic quality could not be obtained. ----- --------- [place] . Number of fetuses: 1 Dating ----- --------- LMP on: 07/19/2024 GA by LMP 24 w + 0 d DARWIN by LMP: 04/25/2025 Conception on: 07/31/2024 GA by conception 24 w + 2 d DARWIN by conception: 04/23/2025 Previous Ultrasound on: 08/28/2024 Type of prior assessment: GA GA at prior assessment date 5 w + 6 d GA by previous U/S 24 w + 1 d DARWIN by previous Ultrasound: 04/24/2025 Ultrasound examination on: 01/03/2025 GA by U/S based upon: AC, BPD, Femur, HC GA by U/S 25 w + 0 d DARWIN by U/S: 04/18/2025 Assigned: based on the conception date, selected on 12/05/2024 Assigned GA (weeks days) 24 w + 2 d Assigned DARWIN: 04/23/2025 General Evaluation ----- --------- Cardiac activity Present. FHR 146 bpm. Presentation: variable Placenta: Placental site: posterior, previously documented away from cervical os Umbilical cord: Cord vessels: 3 vessel cord. Insertion site: documented previously Amniotic fluid: Amount of AF: normal amount. MVP 6.0 cm Biometry ----- --------- Standard BPD 62.0 mm 25w 1d 74% Hadlock OFD 80.4 mm 26w 1d 96% Gayle HC 227.3 mm 24w 5d 49% Hadlock Cerebellum tr 26.1 mm 23w 3d 41% Hill AC 206.3 mm 25w 1d 70% Hadlock Femur 44.5 mm 24w 5d 49% Hadlock Humerus 39.8 mm 24w 1d 38% Gayle HC / AC 1.10 EFW 755 g 71% Hadlock EFW (lb) 1 lb EFW (oz) 11 oz EFW by: Hadlock (SYO-IF-UL-FL) Extended Tibia 40.2 mm 25w 3d 79% Gayle Thermodynamicist 5.0 mm CM 2.7 mm <1% Nicolaides Head / Face / Neck Cephalic index 0.77 34% Nicolaides Nasal bone: documented previously Extremities / Bony Struc FL / BPD 0.72 FL / HC 0.20 FL / AC 0.22 Other Structures FHR 146 bpm Anatomy ----- --------- The following structures appear normal: Head/Neck: Cranium. Lateral ventricles. Cavum septi pellucidi. Cerebellum. Cisterna magna. Parenchyma. Heart/Thorax: 4-chamber view. Situs. Aortic arch view. Cardiac position. Cardiac axis. Cardiac size. Cardiac rhythm. Abdomen: Abdom. wall. Stomach. Kidneys. Bladder. Extremities/Skeleton: Left hand. Right foot. Left upper leg. Left lower leg. Skeleton The following structures could not be adequately visualized: Heart / Thorax Ductal arch view. Interventricular septum. Great vessels. Diaphragm. The following structures could not be examined: Face: Lips. Profile. Nose. Heart / Thorax RVOT view. LVOT view. 3-vessel view. 1-smiafp-dxrcmas view. Bicaval view. Abdomen Genitals. Extremities / Left foot. Skeleton The following structures were documented previously: Head / Neck Choroid plexus. Midline falx. Vermis. Neck. Nuchal fold. Face Nasal bone. Maxilla. Mandible. Orbits. Heart / Thorax Right lung. Left lung. Abdomen Cord insertion. Small bowel. Large bowel. Right renal artery. Left renal artery. Spine: Cervical spine. Thoracic spine. Lumbar spine. Sacral spine. Extremities / Right upper arm. Right forearm. Right hand. Left upper arm. Left forearm. Right upper leg. Right lower leg. Maternal Structures ----- --------- Uterus Visualized Cervix Suboptimal Approach - Transabdominal Right Ovary Not visualized Left Ovary Not visualized Cul de Sac Suboptimal Impression ----- --------- Single live intrauterine . 24w 2d. Normal growth. EFW measures at the 71%, AC measures at the 70%. Amniotic fluid MVP measures 6 cm. Recommendations ----- --------- Please see [facility] recommendations from prior clinical and/or ultrasound report documentation. The patient is scheduled in four to six week(s) to complete anatomic survey. Subsequent follow up or other follow up as clinically determined by primary OB provider unless otherwise specified by [facility]. Results forwarded to ordering provider so they can follow up with the patient as necessary. Procedure Note Enrike Garcia MD - 01/04/2025 NAME: MARIA EUGENIA HINDS : 1995 SEX: F Accession Number: [id number] ORDERING PHYSICIAN: ENRIKE GARCIA REFERRING PHYSICIAN: BASIM BIRMINGHAM Coding ----- --------- Procedures 36078: Follow-up Ultrasound, per fetus Indication ----- --------- Screening for follow-up survey, resulting from assistedreproductive technology- IUI, History of Gastric sleeve, Obesity in . History ----- --------- OB History 1. Para 0 [id number] Current ----- --------- Cell free DNA low risk analysis Maternal Assessment ----- --------- Physical Exam Height 180 cm, 5 ft 11 in. Initial weight 102 kg, 224 lb.Initial BMI 31.24 kg/m Method ----- --------- Transabdominal ultrasound examination. View: Suboptimal view: limited bymaternal body habitus Images of optimal diagnostic quality could not be obtained. ----- --------- [place] . Number of fetuses: 1 Dating ----- --------- LMP on: 07/19/2024 GA by LMP 24 w + 0 d DARWIN by LMP: 04/25/2025 Conception on: 07/31/2024 GA by conception 24 w + 2 d DARWIN by conception: 04/23/2025 Previous Ultrasound on: 08/28/2024 Type of prior assessment: GA GA at prior assessment date 5 w + 6 d GA by previous U/S 24 w + 1 d DARWIN by previous Ultrasound: 04/24/2025 Ultrasound examination on: 01/03/2025 GA by U/S based upon: AC, BPD, Femur, HC GA by U/S 25 w + 0 d DARWIN by U/S: 04/18/2025 Assigned: based on the conception date, selected on 12/05/2024 Assigned GA (weeks days) 24 w + 2 d Assigned DARWIN: 04/23/2025 General Evaluation ----- --------- Cardiac activity Present. FHR 146 bpm. Presentation: variable Placenta: Placental site: posterior, previously documented away fromcervical os Umbilical cord: Cord vessels: 3 vessel cord. Insertion site: documentedpreviously Amniotic fluid: Amount of AF: normal amount. MVP 6.0 cm Biometry ----- --------- Standard BPD 62.0 mm 25w 1d 74% Hadlock OFD 80.4 mm 26w 1d 96% Gayle HC 227.3 mm 24w 5d 49% Hadlock Cerebellum tr 26.1 mm 23w 3d 41% Hill AC 206.3 mm 25w 1d 70% Hadlock Femur 44.5 mm 24w 5d 49% Hadlock Humerus 39.8 mm 24w 1d 38% Gayle HC / AC 1.10 EFW 755 g 71% Hadlock EFW (lb) 1 lb EFW (oz) 11 oz EFW by: Hadlock (RIA-ER-RH-FL) Extended Tibia 40.2 mm 25w 3d 79% Gayle Thermodynamicist 5.0 mm CM 2.7 mm <1% Nicolaides Head / Face / Neck Cephalic index 0.77 34% Nicolaides Nasal bone: documented previously Extremities / Bony Struc FL / BPD 0.72 FL / HC 0.20 FL / AC 0.22 Other Structures FHR 146 bpm Anatomy ----- --------- The following structures appear normal: Head/Neck: Cranium. Lateral ventricles. Cavum septi pellucidi. Cerebellum.Cisterna magna. Parenchyma. Heart/Thorax: 4-chamber view. Situs. Aortic arch view. Cardiac position.Cardiac axis. Cardiac size. Cardiac rhythm. Abdomen: Abdom. wall. Stomach. Kidneys. Bladder. Extremities/Skeleton: Left hand. Right foot. Left upper leg. Left lowerleg. Skeleton The following structures could not be adequately visualized: Heart / Thorax Ductal arch view. Interventricular septum. Great vessels. Diaphragm. The following structures could not be examined: Face: Lips. Profile. Nose. Heart / Thorax RVOT view. LVOT view. 3-vessel view. 1-tfwahd-xdtmwzx view.Bicaval view. Abdomen Genitals. Extremities / Left foot. Skeleton The following structures were documented previously: Head / Neck Choroid plexus. Midline falx. Vermis. Neck. Nuchal fold. Face Nasal bone. Maxilla. Mandible. Orbits. Heart / Thorax Right lung. Left lung. Abdomen Cord insertion. Small bowel. Large bowel. Right renalartery. Left renal artery. Spine: Cervical spine. Thoracic spine. Lumbar spine. Sacral spine. Extremities / Right upper arm. Right forearm. Right hand. Left upper arm.Left forearm. Right upper leg. Right lower leg. Maternal Structures ----- --------- Uterus Visualized Cervix Suboptimal Approach - Transabdominal Right Ovary Not visualized Left Ovary Not visualized Cul de Sac Suboptimal Impression ----- --------- Single live intrauterine . 24w 2d. Normal growth. EFW measures at the 71%, AC measures at the 70%. Amniotic fluid MVP measures 6 cm. Recommendations ----- --------- Please see MFM recommendations from prior clinical and/or ultrasoundreport documentation. The patient is scheduled in four to six week(s) to complete anatomicsurvey. Subsequent follow up or other follow up as clinically determined byprimary OB provider unless otherwise specified by MFM. Results forwarded to ordering provider so they can follow up with thepatient as necessary. us Enrike Garcia MD IMG US ORDERABLES Final Re sult * Unlisted Lab Test (10/18/2024 2:37 PM EDT) Only the most recent of2 resultswithin the time period is included. us Not In System Ref Prov LAB BLOOD ORDERABLES Danna l Result MANUALLY TRANSCRIBED RESULTS from Last 3 Months Insurance [facility], [employer] Care Teams Sliver Lap Tender Relationship Specialty Start Date End Date No Pcp, No Pcp LUKE Owens [id number] PCP - General Family Medicine 05/20/20
--- OUTSIDE RECORDS SUMMARY | 2025-01-09 11:04 | XMS_ITS | CCD ---
Author Organization [facility] Care Team Providers Care Sandwich Wrapper Name Role Phone Robin Appiah Primary Care Provider [phone] MACKENZIE BRITO Referring Unavailable ROBIN APPIAH Primary [...] Care Provider DO Jack Easton Emergency Provider [phone] MARYSOL Jett Emergency Provider MD Lashonda Farhad Admit Provider MD Farhad Gallego Attending Provider [phone] MELY Ford Attending Provider SHARRON Jefferson Attending Provider [phone] Petr Lay Unavailable Romeo Santana Unavailable MELY Ford Primary Care Provider DO Romeo Santana Attending Provider Rohrbacher JOINTER MACHINE OPERATOR, Amanda Primary Care Provider Unavailable Rohrbacher LABORATORY ANIMAL CARE VETERINARIAN, Amanda Primary Care Provider Romeo Santana DO Attending Provider Merylrbacher JOINTER MACHINE OPERATOR, Amanda A Primary Care Provider Unavailable Primary Care Provider Unavailabl e DAVID, SHELLY G Referring Unavailable Unavailable Primary Care Provider Unavailabl e SAÚL ENRIQUEZ Attending Unavailable Rohrbacher JOINTER MACHINE OPERATOR, Amanda A Primary Care Provider DAVID, SHELLY [...] Unavailable JUAN, LES R Attending Unavailable Rohrbacher LABORATORY ANIMAL CARE VETERINARIAN, Amanda Primary Care Provider Kassidy Arriaza DO Emergency Provider [phone] No Pcp, No Pcp Primary Care Provider Unavailabl e Chris Dickerson DO Attending Provider [phone] Les Martinez DO Attending Provider [phone] Elizabeth Tom Attending Provider [phone] Eduardo Cruz DO Attending Provider JUAN, LES R Referring Unavailable NO PCP, NO PCP Primary Care Unavailable LATRICIA LINDQUIST Attending Unavailable JUAN, LES R Referring Unavailable NO PCP, NO PCP Primary Care Unavailable Amanda Ford Primary Care Unavailable Kassidy Arriaza Admitting Unavailable Kassidy Arriaza Attending Unavailable Chris Dickerson Admitting Unavailable Chris Dickerson Attending Unavailable Eduardo rCuz Admitting Unavailable Eduardo Cruz Attending Unavailable Amanda Ford Primary Care Unavailable DARLEEN SINCLAIR F Attending Unavailable LAUREN SINCLAIRMAAri F Referring Unavailable UNIQUE MARTINEZY Attending Unavailable UNIQUE MARTINEZY Attending Unavailable JUAN, LES Referring Unavailable JUAN, LES Attending Unavailable JOJO AMES Attending Unavailable NO PCP, NO PCP Primary Care Unavailable JUAN, LES R Referring Unavailable Allergies Allergy Classification Reported Allergen(s) Allergy Type Date of Onset Reaction(s) Facility (20 sources) Non-steroidal anti-inflammato ry agent Drug allergy Unknown [facility] Other (20 sources) Non-steroidal anti-inflammato ry agent; Translations: [NSAIDs] Drug Allergy 3 Unknown [facility] Healthcare (1 source) ALLERGIES NOT ON FILE; Translations: [ALLERGIES NOT ON FILE] Propensity to adverse reactions (disorder) [facility] 3 Repository (6 sources) NSAIDs; Translations: [NSAIDS (NON-STEROIDAL ANTI-INFLAMMATO RY DRUG)] Propensity to adverse reactions to drug [place] (1 source) NSAIDs Drug allergy (disorder) 5 [facility] Repository Medications Current Medications Medication Drug [...] bedtime) for sleep, 60 tab(s), Refill(s) 2, [facility], 182, cm, 07/09/19 13:03:00 EDT, [...] take 1 capsule by mouth once seymour bakari Leone Stool Softener 100 MG 1 capsule [...] QID, # 60 tab(s), Refills(s) 2, Pharmacy: [facility] Start Date: 10/09/18 Status: Ordered lamoTRIgine 200 mg oral tablet (20 sources) Mood Stabilizer, Anti-epileptic Agent Start: 04-10-2022 Lamotrigine Active MG TABLET April 10, 2022 12:00am Start: 01-30-2020 lamotrigine 20 0 mg Tab 300 mg = 1.5 tab(s), Oral, Daily, # 45 tab(s), Refills(s) 5, Pharmacy: [facility], 182, cm, 12/06/19 12:03:00 EDT, Height/Length [...] % adhesive patch,medicated Discontinued 0 .ROUTE .COMPLEX 30 October 24, 2023 8:47am January 17, 2024 [...] qPM, # 90 tab(s), Refills(s) 2, Pharmacy: [facility], 182, cm, 12/06/19 12:03:00 EDT, Height/Length Dosing, 200.7, kg, 11/28/19 9:08:00 EDT, Weight Dosing Start Date: 03/17/20 Status: Ordered magnesium oxide 400 mg oral tablet (4 sources) Start: 12-05-2024 take 1 tablet by [...] by mouth two times a day. Active [id number] acid ( 19) 29 mg iron- 1 mg tablet,chewable (6 sources) [id number] acid ( 19) 29 mg iron- 1 [...] Start: 03-12-2020 take 2 tablets by mo [facility] at bedtime quetiapine 50 mg oral tablet 100 mg = 2 tab(s), Oral, Bedtime, # 60 tab(s), Refills(s) 5, Pharmacy: [facility], 182, cm, 12/06/19 12:03:00 EDT, Height/Length Dosing, 200.7, kg, 11/28/19 9:08:00 EDT, Weight Dosing Start Date: 03/12/20 Status: [facility] QUEtiapine (SEROQUEL XR) 50 MG extended release tablet Take 50 mg by mouth nightly 0 Active 72 hr scopolamine 0.0139 mg/hr transdermal system (2 sources) Anticholinergic Start: 05-06-2020 scopolamine (TRANSDERM-SCOP) transdermal patch 1 patch sertraline 25 mg oral tablet (19 sources) Serotonin Reuptake Inhibitor Start: 09-25-2024 take [...] food, # 60 cap(s), Refills(s) 2, Pharmacy: [facility], 182, cm, 12/06/19 12:03:00 EDT, [...] anxiety, # 60 tab(s), Refills(s) 1, Pharmacy: [facility], 182, cm, 12/06/19 12:03:00 EDT, [...] D2) 1,250 mcg (50,000 unit) capsule Discontinued 99262 UNIT PO every week October 08, 2019 12:00am August 01, 2021 2:19pm Takes on Tuesday Start: 05-25-2019 Vitamin D2 200 0 intl units oral capsule Refills(s) 0 Start Date: 05/25/19 Status: Ordered Start: 01-12-2019 End: 05-08-2020 take 1 capsule by mouth every week vitamin D (ERGOCALCIFEROL) 43678 units CAPS capsule Indications: Vitamin D deficiency [...] .q6-8hrs as needed for severe pain 12 December 09, 2023 December 20, 2023 10:47am Take with food. Do not fill until 12/10/23. Start: 12-06-2023 End: 12-07-2023 take 1 tablet by mouth every six hours as needed for pain Oxycodone 5 mg tablet Discontinued 5 MG PO Q6H as needed for Pain 20 December 06, 2023 December 07, 2023 7:13am [...] Episodic Immunizations and screening for infectious disease (8 sources) Patient encounter status; Translations: [Encounter for [...] osteoarthritis, unspecified shoulder] Chronic Other complications of (5 sources) Maternal obesity complicating , childbirth and the puerperium, antepartum; Translations: [Obesity complicating , second trimester] 12-05-2024 Chronic Other complications of (1 source) Obesity complicating , second trimester; Translations: [Obesity complicating , second trimester] Onset: 5 Chronic Other complications of (4 sources) Supervision of resulting from assisted reproductive technology, first trimester; Translations: [ resulting from assisted reproductive technology] Onset: 5 08-16-2024 Episodic Other complications of (2 sources) Conceived by in vitro fertilization; Translations: [Supervision of resulting from assisted reproductive technology, first trimester] 10-22-2024 Episodic Other complications of (9 sources) Hypothyroidism in ; Translations: [Endocrine, nutritional and metabolic diseases complicating , second trimester] Onset: 5 12-05-2024 Episodic Other complications of (7 sources) Bipolar disorder; Translations: [Other mental disorders complicating , second trimester] Onset: 5 12-05-2024 Episodic Other complications of (2 sources) Supervision of resulting from assisted reproductive technology, unspecified trimester; Translations: [ resulting from assisted reproductive technology] Onset: 5 12-05-2024 Episodic Other complications of (5 sources) Headache; Translations: [Other specified related conditions, second trimester] Onset: 5 12-05-2024 Episodic Other complications of (1 source) Other specified related conditions, second trimester; Translations: [Other specified related conditions, second trimester] Onset: 5 Episodic Other complications of (1 source) Bariatric surgery status complicating , unspecified trimester; 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 complicating , unspecified trimester] Onset: Episodic Other complications of (1 source) Endocrine, nutritional and metabolic diseases complicating , second trimester; Translations: [Endocrine, nutritional and metabolic diseases complicating , second trimester] Onset: 5 Episodic Other complications of (1 source) Other mental disorders complicating , second trimester; Translations: [Other mental disorders complicating , second trimester] Onset: 5 Episodic Other connective [...] [Constipation, unspecified] 06-08-2023 Episodic Other gastrointestinal disorders (9 sources) History of bypass of stomach; 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] Onset: 08-22-2024 Episodic Other hematologic conditions (4 sources) H/O: anemia - iron deficient; Translations: [...] 09-03-2018 Chronic Other and delivery including normal (10 sources) Early stage of ; Translations: [Encounter [...] (without fever)] 06-08-2023 Episodic Residual codes; unclassified (19 sources) History of sleeve gastrectomy; Translations: [Acquired [...] [20 weeks gestation of ] 12-05-2024 Episodic Residual codes; unclassified (2 sources) Gestation period, 22 weeks; Translations: [22 weeks gestation of ] 12-19-2024 Episodic Skin and subcutaneous tissue infections (20 [...] 9 Resolved: 2 12-05-2018 Chronic Thyroid disorders (6 sources) Disorder of thyroid gland; Translations: [Disorder of thyroid, unspecified] 10-22-2024 Episodic Unclassified (2 sources) History of sleeve gastrectomy; Translations: [Status post laparoscopic sleeve gastrectomy] Onset: 1 05-06-2020 Unclassified (5 sources) Patient encounter status; Translations: [Pre-op testing] 09-03-2018 Unclassified (1 source) 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) 08-20-2024 Unclassified (12 sources) OB Reminders Onset: 5 10-22-2024 Unclassified (2 sources) keep next scheduled appointment Unclassified (1 source) IUI Onset: 5 Unclassified (1 source) Pee's Thyroiditis Onset: 5 Past or Other Problems Problem Classification Problem Date Documented Da te Episodic/Chronic Screening and history of mental health and substance abuse codes (1 source) Personal history of nicotine dependence Onset: 07-16-2021 Resolved: 07-16-2021 Episodic Unclassified (2 sources) History of bypass of stomach 12-05-2024 Unclassified (1 source) Encounter for supervision of resulting from assisted reproductive technology, antepartum 12-05-2024 NEGATED: Highlighted row has been ruled out!Unclassified (1 source) No known active problems 08-20-2024 Results Test Name Value Interpretation Reference Range Facility Urinalysis macro (dipstick) panel (U)on 12-19-2024 Bilirubin, UA Negative Negative - 4(70) +++ mg/dL [facility] Blood, UA Negative Negative - 50 Yehuda/mcL [facility] Clarity, UA Clear [facility] Color, UA Yellow [facility] Glucose, UA Negative Negative - 2000(110) ++++ mg/dL [facility] Interpretation and review of laboratory results Normal [facility] Ketones, UA Negative Negative - 160(16) ++++ mg/dL [facility] Leukocytes, UA Negative Negative - 500+++ Kourtney/mcL [facility] Nitrite, UA Negative Negative - Positive [facility] pH, UA 7 5 - 9 [facility] Protein, UA Negative Negative - 1999(20) ++++ mg/dL [facility] Spec Grav, UA 1.01 1 - 1.03 [facility] Urobilinogen, UA 1.0 0.2 - 12 mg/dL [facility] No Panel Informationon 12-15 [facility] UA (CLEAN/CATCH) PRINT LINE INSPECTOR/CARLOS RO IF IND.on 12-15-2024 BILIRUBIN URINE Negative NEGATIVE [facility] BLOOD URINE SMALL Abnormal NEGATIVE [facility] Clarity (U) CLEAR CLEAR [facility] Color (U) LT. YELLOW YELLOW [facility] GLUCOSE URINE UA Negative NEGATIVE mg/dL [facility] Interpretation and review of laboratory results Abnormal [facility] Ketones Ql (U) Negative NEGATIVE mg/dL [facility] Leukocyte esterase Test strip Ql (U) Negative NEGATIVE [facility] NITRITE URINE Negative NEGATIVE [facility] pH (U) 5.5 [pH] 5.0 - 9.0 [facility] PROTEIN URINE Negative NEG/TRACE mg/dL [facility] SPECIFIC GRAVITY URINE 1.015 1.005 - 1.025 [facility] URINE MICROSCOPIC INDICATED YES [facility] UROBILINOGEN URINE 0.2 EU/dL 0.2 - 1.0 EU/dL [facility] URINE MICROSCOPIC ONLYon 12-15-2024 BACTERIA URINE NONE SEEN NONE SEEN #/HPF [facility] CAST SEEN? NONE SEEN NONE SEEN #/LPF [facility] CRYSTALS SEEN? None Seen None Seen #/HPF [facility] MUCUS URINE NONE SEEN NONE SEEN [facility] SQUAMOUS EPITHELIAL CELL URINE RARE NONE/RARE #/LPF [facility] RBC 0-2 [facility] WBC NONE SEEN NONE SEEN #/HPF [facility] URINE CULTURE INDICATED NO [facility] US OB 14+ WEEKS ANATOMY SCAN on [...] II, MD, PHD at 06-Dec-2024 08:04:50 AM [facility] [place] [facility] Normal Not Available Comment on above: Order Comment: US OB ANATOMY SINGLE W US OB CERVICAL LENGTH Estimated Date of Delivery: 04/23/25 Gestational Age as of 11/20/2024: 18w0d Urinalysis complete panel (U )on 12-03-2024 Comment c/o urinary symptoms or increased blood pressure Name Collection Type:: Voided [facility] Appearance of Urineon 2024 Appearance (U) Clear Normal Clear [facility] Comment on above: Order Comment: Comme nt c/o urinary symptoms or increased blood pressure Name Collection Type:: Voided Performed By: #### A DDONUAPLUS #### [facility] [address] [id number] [place] Bacteria [Presence] in Urine by AutomatedOrdered By: Eduardo Cruz on 12-02-2024 Bacteria Auto Ql (U) 1+ [HPF] High None Seen [facility] Bilirubin Test strip Ql (U)O rdered By: Eduardo Cruz on 12-02-2024 Bilirubin Ql (U) Negative Negative [facility] Color of Urine by [employer] Color (U) Light-Yellow Normal Yellow [facility] Comment on above: Order Comment: Comme nt c/o urinary symptoms or increased blood pressure Name Collection Type:: Voided Performed By: #### A DDONUAPLUS #### [facility] [address] [id number] [place] Dipstick and Microscopicon 0 12-02-2024 Bacteria,Urine 1+ [HPF] Normal None Seen [facility] Comment on above: Order Comment: Comme nt c/o urinary symptoms or increased blood pressure Name Collection Type:: Voided Performed By: #### A DDONUAPLUS #### [facility] [address] BILIRUBIN,URINE Negative Normal Negative [facility] Comment on above: Order Comment: Comme nt c/o urinary symptoms or increased blood pressure Name Collection Type:: Voided Performed By: #### A DDONUAPLUS #### [facility] [address] Glucose Ql (U) Normal Normal Normal [facility] Comment on above: Order Comment: Comme nt c/o urinary symptoms or increased blood pressure Name Collection Type:: Voided Performed By: #### A DDONUAPLUS #### [address] Hyaline Casts,Urine None Normal 0-8 [facility] Comment on above: Order Comment: Comme nt c/o urinary symptoms or increased blood pressure Name Collection Type:: Voided Performed By: #### A DDONUAPLUS #### [address] Mucus,Urine 1+ [LPF] Critically abnormal [facility] Comment on above: Order Comment: Comme nt c/o urinary symptoms or increased blood pressure Name Collection Type:: Voided Result Comment: PERF ORMED BY: [place] [address] PATHOLOGIST EXECUTIVE ADMIN DAMIÁN DOSHI M.D. Performed By: #### A DDONUAPLUS #### [address] NITRITE,URINE Negative Normal Negative [facility] Comment on above: Order Comment: Comme nt c/o urinary symptoms or increased blood pressure Name Collection Type:: Voided Performed By: #### A DDONUAPLUS #### [address] OCCULT BLOOD,URINE 3+ Normal Negative [facility] Comment on above: Order Comment: Comme nt c/o urinary symptoms or increased blood pressure Name Collection Type:: Voided Result Comment: PERF ORMED BY: [place] [address] PATHOLOGIST EXECUTIVE ADMIN DAMIÁN DOSHI M.D. Performed By: #### A DDONUAPLUS #### [place] [address] [place] PROTEIN,URINE Negative Normal Negative [facility] Comment on above: Order Comment: Comme nt c/o urinary symptoms or increased blood pressure Name Collection Type:: Voided Performed By: #### A DDONUAPLUS #### [address] RBC,Urine 1-2 Normal 0-4 [facility] Comment on above: Order Comment: Comme nt c/o urinary symptoms or increased blood pressure Name Collection Type:: Voided Performed By: #### A DDONUAPLUS #### [address] SPECIFICY GRAVITY,URINE 1.017 Normal 1.001-1.030 [facility] Comment on above: Order Comment: Comme nt c/o urinary symptoms or increased blood pressure Name Collection Type:: Voided Performed By: #### A DDONUAPLUS #### [place] [address] [place] Squamous Epithelial Cell,Urine 1-2 Normal 0-2 [facility] Comment on above: Order Comment: Comme nt c/o urinary symptoms or increased blood pressure Name Collection Type:: Voided Performed By: #### A DDONUAPLUS #### [place] [address] [place] UROBILINOGEN,URINE Normal Normal Normal [facility] Comment on above: Order Comment: Comme nt c/o urinary symptoms or increased blood pressure Name Collection Type:: Voided Performed By: #### A DDONUAPLUS #### [place] [address] [place] WBC,Urine 1-2 Normal 0-4 [facility] Comment on above: Order Comment: Comme nt c/o urinary symptoms or increased blood pressure Name Collection Type:: Voided Performed By: #### A DDONUAPLUS #### [place] [address] [place] Epithelial cells.squamous [# /area] in Urine sediment by Automated countOrdered By: Eduardo Cruz on 12-02-2024 Epithelial cells.squamous Auto (Urine sed) [#/Area] 1-2 [HPF] 0-2 [facility] Erythrocytes [#/area] in Uri ne sediment by Automated countOrdered By: Eduardo Cruz on 12-02-2024 RBC Auto (Urine sed) [#/Area] 1-2 [HPF] 0-4 [facility] Glucose [Mass/volume] in Uri ne by Test stripOrdered By: Eduardo Cruz on 12-02-2024 Glucose Test strip (U) [Mass/Vol] Normal mg/dL Normal [facility] Hemoglobin Test strip Ql (U) Ordered By: Eduardo Cruz on 12-02-2024 Hemoglobin Ql (U) 3+ High Negative [facility] Hyaline casts [#/area] in Ur ine sediment by Automated countOrdered By: Eduardo Cruz on 12-02-2024 Hyaline casts Auto (Urine sed) [#/Area] None [LPF] 0-8 [facility] Ketones [Presence] in Urine by Test stripon 12-02-2024 Ketones Ql (U) Negative Normal Negative [facility] Comment on above: Order Comment: Comme nt c/o urinary symptoms or increased blood pressure Name Collection Type:: Voided Performed By: #### A DDONUAPLUS #### [facility] [address] Leukocyte esterase [Presence ] in Urine by Test stripon 12-02-2024 Leukocyte esterase Test strip Ql (U) Negative Normal Negative [facility] Comment on above: Order Comment: Comme nt c/o urinary symptoms or increased blood pressure Name Collection Type:: Voided Performed By: #### A DDONUAPLUS #### [facility] [address] [place] [address] [place] Leukocytes [#/area] in Urine sediment by Automated countOrdered By: Eduardo Cruz on 12-02-2024 WBC Auto (Urine sed) [#/Area] 1-2 [HPF] 0-4 [facility] Mucus [Presence] in Urine by AutomatedOrdered By: Eduardo Cruz on 12-02-2024 Mucus Auto Ql (U) 1+ [LPF] Abnormal [facility] Nitrite Test strip Ql (U)Ord ered By: Eduardo Cruz on 12-02-2024 Nitrite Ql (U) Negative Negative [facility] Protein Test strip (U) [Mass /Vol]Ordered By: Eduardo Cruz on 12-02-2024 Protein (U) [Mass/Vol] Negative [facility] Specific gravity Test strip (U) [Rel density]Ordered By: Eduardo Cruz on 12-02-2024 Specific gravity (U) [Rel density] 1.017 1.001-1.030 [facility] Urobilinogen Test strip (U) [Mass/Vol]Ordered By: Eduardo Cruz on 12-02-2024 Urobilinogen (U) [Mass/Vol] Normal mg/dL Normal [facility] pH of Urine by Test stripon 12-02-2024 pH (U) 5.5 [pH] Normal 5.0-9.0 [facility] Comment on above: Order Comment: Comme nt c/o urinary symptoms or increased blood pressure Name Collection Type:: Voided Performed By: #### A DDONUAPLUS #### [address] Basophils Auto (Bld) [#/Vol] Ordered By: Elizabeth Osborne ([place]) on 12-01-2024 Basophils (Bld) [#/Vol] 0.0 10 3/uL 0.0-0.1 [facility] Basophils/100 WBC Auto (Bld) Ordered By: (Diya Osborne on 12-01-2024 Basophils/100 WBC (Bld) 0.3 % 0.2-2.0 [facility] Eosinophils/100 WBC Auto (Bl d)Ordered By: (Roman) Elizabeth Osborne on 12-01-2024 Eosinophils/100 WBC (Bld) 1.8 % 0.9-7.0 [facility] Erythrocyte distribution wid th Auto (RBC) [Ratio]Ordered By: Elizabeth Osborne ([place]) on 12-01-2024 Erythrocyte distribution width (RBC) [Ratio] 14.0 % 11.0-15.0 [facility] Globulin Calc (S) [Mass/Vol] Ordered By: Elizabeth Osborne ([place]) on 12-01-2024 Globulin (S) [Mass/Vol] 3.6 g/dL [facility] Glomerular filtration rate ( GFR) estimation in non- AmericanOrdered By: Johnson ([place]) [place] on 12-01-2024 GFR/1.73 sq M.predicted among non-blacks MDRD (S/P/Bld) [Vol rate/Area] mL/min/{1.73_m2} >=60 mL/min/1.73m 2 [facility] Hematocrit Auto (Bld) [Volum e fraction]Ordered By: (Roman) Elizabeth Osborne on 12-01-2024 Hematocrit (Bld) [Volume fraction] 38.0 % 36.0-48.0 [facility] Hemoglobin [Mass/volume] in BloodOrdered By: (Diya Osborne on 12-01-2024 Hemoglobin (Bld) [Mass/Vol] 13.0 g/dL 12.0-16.0 [facility] Laboratory - Chemistry and C hemistry - challengeOrdered By: (Roman) Elizabeth Osborne on 12-01-2024 Bilirubin Ql (U) Negative NEGATIVE [facility] Glucose (U) [Mass/Vol] Negative NEGATIVE [facility] Ketones Ql (U) Negative NEGATIVE [facility] pH (U) 6.0 [pH] 5.0-9.0 [facility] Specific gravity (U) [Rel density] 1.025 1.005-1.025 [facility] Urobilinogen Qn (U) 1.0 {Fabián'U}/dL 0.2-1.0 [facility] Albumin [Mass/Vol] 3.1 g/dL Low 3.4-5.0 [facility] ALP [Catalytic activity/Vol] 45 U/L Low 46-116 [facility] ALT [Catalytic activity/Vol] 20 U/L 14-59 [facility] AST [Catalytic activity/Vol] 14 U/L Low 15-37 [facility] Bilirubin [Mass/Vol] 0.4 mg/dL 0.2-1.0 [facility] Calcium [Mass/Vol] 8.6 mg/dL 8.5-10.1 [facility] Chloride [Moles/Vol] 106 mmol/L 98-107 [facility] CO2 [Moles/Vol] 25.7 mmol/L 21.0-32.0 [facility] Creatinine [Mass/Vol] 0.37 mg/dL Low 0.55-1.02 [facility] GFR/1.73 sq M.predicted MDRD (S/P/Bld) [Vol rate/Area] mL/min/{1.73_m2} >=60 mL/min/1.73m 2 [facility] Glucose [Mass/Vol] 61 mg/dL Low 74-106 [facility] Potassium [Moles/Vol] 3.9 mmol/L 3.5-5.1 [facility] Protein [Mass/Vol] 6.7 g/dL 6.4-8.2 [facility] Sodium [Moles/Vol] 139 mmol/L 136-145 [facility] Urea nitrogen [Mass/Vol] 3.0 mg/dL Low 7.0-18.0 [facility] Urea nitrogen/Creatinine [Mass ratio] 8.1 mg/mg [facility] Laboratory - Hematology and Cell countsOrdered By: Elizabeth Osborne ([place]) on 12-01-2024 Immature granulocytes/100 WBC (Bld) 1.0 % High 0.0-0.5 [facility] Laboratory - Specimen inform ationOrdered By: Elizabeth Osborne ([place]) on 12-01-2024 Appearance (U) CLEAR CLEAR [facility] [facility] Color (U) LT. YELLOW YELLOW [facility] Laboratory - UrinalysisOrder ed By: Elizabeth Osborne ([place]) on 12-01-2024 Leukocyte esterase Test strip Ql (U) Negative NEGATIVE [facility] Nitrite Ql (U) Negative NEGATIVE [facility] Protein Ql (U) Negative NEG/TRACE [facility] Leukocytes [#/volume] correc terry for nucleated erythrocytes in Blood by Automated counOrdered By: Elizabeth Osborne ([place]) on 12-01-2024 WBC corrected for nucl RBC Auto (Bld) [#/Vol] 10.0 10 3/uL 4.0-11.0 [facility] Lymphocytes Auto (Bld) [#/Vo l]Ordered By: ([place]) Elizabeth Thomason on 12-01-2024 Lymphocytes (Bld) [#/Vol] 2.2 10 3/uL 1.2-3.8 [facility] Lymphocytes/100 WBC Auto (Bl d)Ordered By: ([place]) Elizabethnura Thomason on 12-01-2024 Lymphocytes/100 WBC (Bld) 22.1 % 20.5-60.0 [facility] MCH Auto (RBC) [Entitic mass ]Ordered By: ([place]) Elizabethnura Thomason on 12-01-2024 MCH (RBC) [Entitic mass] 29.8 pg 26.7-34.0 [facility] MCHC Auto (RBC) [Mass/Vol]Or dered By: (Owens) Elizabeth [place] on 12-01-2024 MCHC (RBC) [Mass/Vol] 34.2 g/dL 29.9-35.2 [facility] MCV Auto (RBC) [Entitic vol] Ordered By: (Owens) Elizabethnura Thomason on 12-01-2024 MCV (RBC) [Entitic vol] 87.2 fL 81.0-99.0 [facility] Monocytes Auto (Bld) [#/Vol] Ordered By: (Owens) Elizabethnura Thomason on 12-01-2024 Monocytes (Bld) [#/Vol] 0.7 10 3/uL 0.3-0.8 [facility] Monocytes/100 WBC Auto (Bld) Ordered By: (Owens) Elizabethnura Thomason on 12-01-2024 Monocytes/100 WBC (Bld) 6.5 % 1.7-12.0 [facility] Neutrophils Auto (Bld) [#/Vo l]Ordered By: (Owens) Elizabeth [place] on 12-01-2024 Neutrophils (Bld) [#/Vol] 6.9 10 3/uL High 1.4-6.5 [facility] Neutrophils/100 WBC Auto (Bl d)Ordered By: (Owens) Elizabeth [place] on 12-01-2024 Neutrophils/100 WBC (Bld) 68.3 % 43.0-75.0 [facility] No Panel InformationOrdered By: (Owens) Elizabeth [place] on 12-01-2024 Urine Microscopic Review NO [facility] Urine Occult Blood Negative NEGATIVE [facility] Eosinophils # (Auto) 0.2 10 3/uL 0.0-0.7 [facility] Immature Granulocyte # (Auto) 0.10 10 3/uL High 0.00-0.03 [facility] Platelet mean volume Auto (B ld) [Entitic vol]Ordered By: (Owens) Elizabeth Osborne on 12-01-2024 Platelet mean volume (Bld) [Entitic vol] 8.3 fL Low 9.5-13.5 [facility] Platelets Auto (Bld) [#/Vol] Ordered By: (Owens) Elizabeth [place] on 12-01-2024 Platelets (Bld) [#/Vol] 177 10 3/uL 150-450 [facility] RBC Auto (Bld) [#/Vol]Ordere d By: (Owens) Elizabeth [place] on 12-01-2024 RBC (Bld) [#/Vol] 4.36 10 6/uL 4.20-5.40 [facility] Serum or plasma albumin/glob ulin mass ratioOrdered By: (Owens) Elizabeth [place] on 12-01-2024 Albumin/Globulin [Mass ratio] 0.9 {ratio} [facility] Serum or plasma anion gap de terminationOrdered By: (Owens) Elizabeth [place] on 12-01-2024 Anion gap [Moles/Vol] 11.2 mmol/L [facility] Basophils Auto (Bld) [#/Vol] Ordered By: Chris Dickerson on 11-30-2024 Basophils (Bld) [#/Vol] 0.0 10 3/uL 0.0-0.1 [facility] Basophils/100 WBC Auto (Bld) Ordered By: Chris Dickerson on 11-30-2024 Basophils/100 WBC (Bld) 0.2 % 0.2-2.0 [facility] Eosinophils/100 WBC Auto (Bl d)Ordered By: Chris Dickerson on 11-30-2024 Eosinophils/100 WBC (Bld) 1.7 % 0.9-7.0 [facility] Erythrocyte distribution wid th Auto (RBC) [Ratio]Ordered By: Chris Dickerson on 11-30-2024 Erythrocyte distribution width (RBC) [Ratio] 14.1 % 11.0-15.0 [facility] Globulin Calc (S) [Mass/Vol] Ordered By: Chris Dickerson on 11-30-2024 Globulin (S) [Mass/Vol] 3.3 g/dL [facility] Glomerular filtration rate ( GFR) estimation in non- AmericanOrdered By: Chris Dickerson on 11-30-2024 GFR/1.73 sq M.predicted among non-blacks MDRD (S/P/Bld) [Vol rate/Area] mL/min/{1.73_m2} >=60 mL/min/1.73m 2 [facility] Hematocrit Auto (Bld) [Volum e fraction]Ordered By: Chris Dickerson on 11-30-2024 Hematocrit (Bld) [Volume fraction] 36.2 % 36.0-48.0 [facility] Hemoglobin [Mass/volume] in BloodOrdered By: Chris Dickerson on 11-30-2024 Hemoglobin (Bld) [Mass/Vol] 12.6 g/dL 12.0-16.0 [facility] - Chemistry and C hemistry - challengeOrdered By: Chris Dickerson on 11-30-2024 Bilirubin Ql (U) Negative NEGATIVE [facility] Glucose (U) [Mass/Vol] Negative NEGATIVE [facility] Ketones Ql (U) Negative NEGATIVE [facility] pH (U) 6.0 [pH] 5.0-9.0 [facility] Specific gravity (U) [Rel density] 1.015 1.005-1.025 [facility] Urobilinogen Qn (U) 1.0 {Fabián'U}/dL 0.2-1.0 [facility] Albumin [Mass/Vol] 3.1 g/dL Low 3.4-5.0 [facility] ALP [Catalytic activity/Vol] 47 U/L 46-116 [facility] ALT [Catalytic activity/Vol] 20 U/L 14-59 [facility] AST [Catalytic activity/Vol] 12 U/L Low 15-37 [facility] Bilirubin [Mass/Vol] 0.3 mg/dL 0.2-1.0 [facility] Bilirubin.direct [Mass/Vol] 0.1 mg/dL 0.0-0.2 [facility] Calcium [Mass/Vol] 8.8 mg/dL 8.5-10.1 [facility] Chloride [Moles/Vol] 108 mmol/L High 98-107 [facility] CO2 [Moles/Vol] 26.0 mmol/L 21.0-32.0 [facility] Creatinine [Mass/Vol] 0.32 mg/dL Low 0.55-1.02 [facility] GFR/1.73 sq M.predicted MDRD (S/P/Bld) [Vol rate/Area] mL/min/{1.73_m2} >=60 mL/min/1.73m 2 [facility] Glucose [Mass/Vol] 74 mg/dL 74-106 [facility] Potassium [Moles/Vol] 4.1 mmol/L 3.5-5.1 [facility] Protein [Mass/Vol] 6.4 g/dL 6.4-8.2 [facility] Sodium [Moles/Vol] 142 mmol/L 136-145 [facility] Urate [Mass/Vol] 3.0 mg/dL 2.6-6.0 [facility] Urea nitrogen [Mass/Vol] 7.0 mg/dL 7.0-18.0 [facility] Urea nitrogen/Creatinine [Mass ratio] 21.9 mg/mg [facility] - Hematology and Cell countsOrdered By: Chirs Dickerson on 11-30-2024 Immature granulocytes/100 WBC (Bld) 0.7 % High 0.0-0.5 [facility] - Specimen inform ationOrdered By: Chris Dickerson on 11-30-2024 Appearance (U) CLEAR CLEAR [facility] Color (U) LT. YELLOW YELLOW [facility] - UrinalysisOrder ed By: Chris Dickerson on 11-30-2024 Leukocyte esterase Test strip Ql (U) SMALL Abnormal NEGATIVE [facility] Mucus Ql (Urine sed) TRACE Abnormal NONE SEEN [facility] Nitrite Ql (U) Negative NEGATIVE [facility] Protein Ql (U) Negative NEG/TRACE [facility] Leukocytes [#/volume] correc terry for nucleated erythrocytes in Blood by Automated counOrdered By: Chris Dickerson on 11-30-2024 WBC corrected for nucl RBC Auto (Bld) [#/Vol] 8.7 10 3/uL 4.0-11.0 [facility] Lymphocytes Auto (Bld) [#/Vo l]Ordered By: Chris Dickerson on 11-30-2024 Lymphocytes (Bld) [#/Vol] 2.0 10 3/uL 1.2-3.8 [facility] Lymphocytes/100 WBC Auto (Bl d)Ordered By: Chris Dickerson on 11-30-2024 Lymphocytes/100 WBC (Bld) 22.9 % 20.5-60.0 [facility] MCH Auto (RBC) [Entitic mass ]Ordered By: Chris Dickerson on 11-30-2024 MCH (RBC) [Entitic mass] 30.0 pg 26.7-34.0 [facility] MCHC Auto (RBC) [Mass/Vol]Or dered By: Chris Dickerson on 11-30-2024 MCHC (RBC) [Mass/Vol] 34.8 g/dL 29.9-35.2 [facility] MCV Auto (RBC) [Entitic vol] Ordered By: Chris Dickerson on 11-30-2024 MCV (RBC) [Entitic vol] 86.2 fL 81.0-99.0 [facility] Monocytes Auto (Bld) [#/Vol] Ordered By: Chris Dickerson on 11-30-2024 Monocytes (Bld) [#/Vol] 0.6 10 3/uL 0.3-0.8 [facility] Monocytes/100 WBC Auto (Bld) Ordered By: Chris Dickerson on 11-30-2024 Monocytes/100 WBC (Bld) 7.2 % 1.7-12.0 [facility] Neutrophils Auto (Bld) [#/Vo l]Ordered By: Chris Dickerson on 11-30-2024 Neutrophils (Bld) [#/Vol] 5.9 10 3/uL 1.4-6.5 [facility] Neutrophils/100 WBC Auto (Bl d)Ordered By: Chris Dickerson on 11-30-2024 Neutrophils/100 WBC (Bld) 67.3 % 43.0-75.0 [facility] No Panel InformationOrdered By: Chris Dickerson on 11-30-2024 Urine Bacteria MODERATE #/HPF Abnormal NONE SEEN [facility] Urine Culture Reflexed YES-[facility] Urine Occult Blood Negative NEGATIVE [facility] Urine Other Casts NONE SEEN #/LPF NONE SEEN [facility] Urine Other Crystals None Seen #/HPF None Seen [facility] Urine RBC 0-2 #/HPF 0-2 [facility] Urine Squamous Epithelial Cells FEW #/LPF Abnormal NONE/RARE [facility] Urine WBC 0-2 #/HPF Abnormal NONE SEEN [facility] Eosinophils # (Auto) 0.2 10 3/uL 0.0-0.7 [facility] Immature Granulocyte # (Auto) 0.06 10 3/uL High 0.00-0.03 [facility] Platelet mean volume Auto (B ld) [Entitic vol]Ordered By: Chris Dickerson on 11-30-2024 Platelet mean volume (Bld) [Entitic vol] 8.7 fL Low 9.5-13.5 [facility] Platelets Auto (Bld) [#/Vol] Ordered By: Chris Dickerson on 11-30-2024 Platelets (Bld) [#/Vol] 185 10 3/uL 150-450 [facility] RBC Auto (Bld) [#/Vol]Ordere d By: Chris Dickerson on 11-30-2024 RBC (Bld) [#/Vol] 4.20 10 6/uL 4.20-5.40 [facility] Serum or plasma albumin/glob ulin mass ratioOrdered By: Chris Dickerson on 11-30-2024 Albumin/Globulin [Mass ratio] 0.9 {ratio} [facility] Serum or plasma anion gap de terminationOrdered By: Chris Dickerson on 11-30-2024 Anion gap [Moles/Vol] 12.1 mmol/L [facility] Urine Cultureon 11-30-2024 Bacteria identified Cx Nom (U) 50,000 colonies/ml mixed bacterial skin contaminants 2 Days PERFORMED BY: [facility] [address] [place] [address] PATHOLOGIST EXECUTIVE ADMIN DAMIÁN DOSHI M.D. Normal [facility] Comment on above: Performed By: #### C UU #### [facility] [address] RECURRENT VAGINITIS (HTRX)on 11-21-2024 ATOPOBIUM VAGINAE 0 [facility] ATOPOBIUM VAGINAE Not detected [facility] BVAB 2,3 (BACTERIAL VAGINOSIS ASSOCIATED [...] HORMONEon 0 11-20-2024 TSH Qn 1.702 m[IU]/L [facility] Alpha-fetoprotein (AFP) kelly urement ([id number])Ordered By: Les Martinez on 11-20-2024 AFP [MoM] 0.87 . [facility] Assess gestational ageOrdere d By: Les Martinez on 11-20-2024 Gestational age 18.0 weeks . [facility] Estimation of maternal age-s pecific risk of Down syndrome birthOrdered By: Les Martinez on 11-20-2024 [age] [Time] [age] yr . [facility] Insulin dependent diabetes m ellitus detectionOrdered By: Les Martinez on 11-20-2024 Insulin dependent diabetes mellitus Ql No . [facility] Interpretation of serum or p lasma second trimester quad maternal screen (narrative reOrdered By: Les Martinez on 11-20-2024 Second trimester quad maternal screen Gonzales [Interp] Comment . [facility] Comment on above: Interpretation: Scre en [...] quad maternal screen Gonzales [Interp] Negative . [facility] Laboratory - Chemistry and C hemistry - challengeOrdered By: Les Martinez on 11-20-2024 TSH Qn 1.702 m[IU]/L 0.358-3.740 [facility] No Panel InformationOrdered By: Les Martinez on 11-20-2024 AFP Triple Screen Comment Comment . [facility] Comment on above: Gisel Gandhi , Ph.D., DABCCDirectorReferences: Available Upon Request.Multiples Of Median Cutoffs For AFP ElevationsSingleton 2.5 Black 2.8IDD 2.0 Twins 4.5 Abbreviation DefinitionsIDD - Insulin Dep DiabetesOSBR - Open Spina Bifida RiskFor further inquiries contact [employer] at [phone].This test was developed and its performance characteristicsdetermined by [employer]. It has not been cleared or approvedby the Food and Drug Administration.Performed at: TG - [facility] [id number] [place], [place] [id number] Director: Lorena Ellis [facility], Phone: [phone] Alpha Fetoprotein Results Received Report . [facility] Gestational Age Calculation Method Ultrasound . [facility] Comment on above: 18.0 on 11/20/2024Re calculations are not recommended when gestational datingby LMP and ultrasound are within 10 days. Maternal Quad Test Risk [address] . [facility] Maternal Race Other . [facility] Multiple No . [facility] Serum or plasma [id number] protein measurement (mass/volume)Ordered By: Les Martinez on 11-20-2024 AFP [Mass/Vol] 27.6 ng/mL . [facility] Urinalysis macro (dipstick) panel (U)on 11-20-2024 Bilirubin, UA Negative Negative - 4(70) +++ mg/dL [facility] Blood, UA Negative Negative - 50 Yehuda/mcL [facility] Clarity, UA Clear [facility] Color, UA Yellow [facility] Glucose, UA Negative Negative - 1999(110) ++++ mg/dL [facility] Interpretation and review of laboratory results Abnormal [facility] Ketones, UA Negative Negative - 160(16) ++++ mg/dL [facility] Leukocytes, UA 2+ Negative - 500+++ Kourtney/mcL [facility] Nitrite, UA Negative Negative - Positive [facility] pH, UA 8 5 - 9 [facility] Protein, UA Negative Negative - 1999(20) ++++ mg/dL [facility] Spec Grav, UA 1.01 1 - 1.03 [facility] Urobilinogen, UA 1.0 0.2 - 12 mg/dL [facility] Laboratory - Chemistry and C hemistry - challengeOrdered By: Chris Dickerson on 11-17-2024 Bilirubin Ql (U) Negative NEGATIVE [facility] Glucose (U) [Mass/Vol] Negative NEGATIVE [facility] Ketones Ql (U) Negative NEGATIVE [facility] pH (U) 7.5 [pH] 5.0-9.0 [facility] Specific gravity (U) [Rel density] 1.010 1.005-1.025 [facility] Urobilinogen Qn (U) 1.0 {Fabián'U}/dL 0.2-1.0 [facility] Laboratory - Specimen inform ationOrdered By: Chris Dickerson on 11-17-2024 Appearance (U) CLEAR CLEAR [facility] Color (U) LT. YELLOW YELLOW [facility] - UrinalysisOrder ed By: Chris Dickerson on 11-17-2024 Leukocyte esterase Test strip Ql (U) Negative NEGATIVE [facility] Mucus Ql (Urine sed) NONE SEEN NONE SEEN [facility] Nitrite Ql (U) Negative NEGATIVE [facility] Protein Ql (U) Negative NEG/TRACE [facility] No Panel InformationOrdered By: Chris Dickerson on 11-17-2024 Urine Bacteria TRACE #/HPF Abnormal NONE SEEN [facility] Urine Culture Reflexed NO [facility] Urine Occult Blood Negative NEGATIVE [facility] Urine Other Casts NONE SEEN #/LPF NONE SEEN [facility] Urine Other Crystals None Seen #/HPF None Seen [facility] Urine RBC NONE SEEN #/HPF 0-2 [facility] Urine Squamous Epithelial Cells RARE #/LPF NONE/RARE [facility] Urine WBC NONE SEEN #/HPF NONE SEEN [facility] Ultrasound - Officeon 2024 Radiology Study observation (narrative) [facility] Urinalysis macro (dipstick) panel (U)on 10-22-2024 Bilirubin, UA Negative Negative - 4(70) +++ mg/dL [facility] Blood, UA Negative Negative - 50 Yehuda/mcL [facility] Clarity, UA Clear [facility] Color, UA Yellow [facility] Glucose, UA Negative Negative - 1999(110) ++++ mg/dL [facility] Interpretation and review of laboratory results Normal [facility] Ketones, UA Negative Negative - 160(16) ++++ mg/dL [facility] Leukocytes, UA Negative Negative - 500+++ Kourtney/mcL [facility] Nitrite, UA Negative Negative - Positive [facility] pH, UA 7 5 - 9 [facility] Protein, UA Negative Negative - 1999(20) ++++ mg/dL [facility] Spec Grav, UA 1.01 1 - 1.03 [facility] Urobilinogen, UA 1.0 0.2 - 12 mg/dL [facility] Appearance of UrineOrdered B y: Kassidy Arriaza on 10-18-2024 Appearance (U) Clear Normal Clear [facility] Comment on above: Order Comment: Name Collection Type:: Clean-Voided Midstream Performed By: #### U A, CUU #### [address] Bilirubin Test strip Ql (U)O rdered By: Kassidy Arriaza on 10-18-2024 Bilirubin Ql (U) Negative Negative [facility] Chlamydia/GC Amplificationon 10-18-2024 Chlamydia Trachomotis, AC Negative Normal Negative [facility] Comment on above: Order Comment: SOURC E OF SPECIMEN: Genital Performed By: #### G CCHLAMAMP #### [facility] , #### CUGEN #### [address] Neisseria Gonorrhoeae, AC Negative Normal Negative [facility] Comment on above: Order Comment: SOURC E OF SPECIMEN: Genital Result Comment: Perf ormed at: =G - [facility] [address] [id number] Electronic Device Monitor: Dagmar Love MD, Phone: [phone] PERFORMED BY: [place] [address] PATHOLOGIST EXECUTIVE ADMIN DAMIÁN DOSHI M.D. Performed By: #### G CCHLAMAMP #### [facility] , #### CUGEN #### [place] [address] [place] Color of Urine by AutoOrdere d By: Kassidy Arriaza on 10-18-2024 Color (U) Colorless Normal Yellow [facility] Comment on above: Order Comment: Name Collection Type:: Clean-Voided Midstream Performed By: #### U A, CUU #### [place] [address] [place] Genital Cultureon 10-18-2024 Genital Culture Genital Results Light Normal Urogenital Damián 2 Days No More GC Specimen not tested for Neisseria gonorrheae PERFORMED BY: [place] [address] PATHOLOGIST EXECUTIVE ADMIN DAMIÁN DOSHI M.D. Normal [facility] Comment on above: Performed By: #### G CCHLAMAMP #### [facility] , #### CUGEN #### [facility] [address] [place] [address] Genital specimen bacteria id entification by aerobic cultureOrdered By: Kassidy Arriaza on 10-18-2024 Bacteria identified Aer cx Nom (Genital specimen) [facility] Glucose [Mass/volume] in Uri ne by Test stripOrdered By: Kassidy Arriaza on 10-18-2024 Glucose Test strip (U) [Mass/Vol] Normal mg/dL Normal [facility] Hemoglobin Test strip Ql (U) Ordered By: Kassidy Arriaza on 10-18-2024 Hemoglobin Ql (U) Negative Negative [facility] Ketones [Presence] in Urine by Test stripOrdered By: Kassidy Arriaza on 10-18-2024 Ketones Ql (U) Trace Normal Negative [facility] Comment on above: Order Comment: Name Collection Type:: Clean-Voided Midstream Performed By: #### U A, CUU #### [facility] [address] [place] [address] Laboratory - Microbiology an d Antimicrobial susceptibilityOrdered By: Kassidy Arriaza on 10-18-2024 C. trachomatis DNA AC+probe Ql (Unsp spec) Negative Negative [facility] N. gonorrhoeae DNA AC+probe Ql (Unsp spec) Negative Negative [facility] Comment on above: Performed at: =[facility] [address] [id number] Director: Dagmar Love MD, Phone: [phone] Leukocyte esterase [Presence ] in Urine by Test stripOrdered By: Kassidy Arriaza on 10-18-2024 Leukocyte esterase Test strip Ql (U) Negative Normal Negative [facility] Comment on above: Order Comment: Name Collection Type:: Clean-Voided Midstream Performed By: #### U A, CUU #### [address] Nitrite Test strip Ql (U)Ord ered By: Kassidy Arriaza on 10-18-2024 Nitrite Ql (U) Negative Negative [facility] Protein Test strip (U) [Mass /Vol]Ordered By: Kassidy Arriaza on 10-18-2024 Protein (U) [Mass/Vol] Negative Negative [facility] Specific gravity Test strip (U) [Rel density]Ordered By: Kassidy Arriaza on 10-18-2024 Specific gravity (U) [Rel density] 1.007 1.001-1.030 [facility] US OB <= 14 weeks fetuson US OB <= 14 weeks fetus [facility] [place] [address] [place] [address] Ultrasound Report Signed Patient: Jaz Sanders MR#: [id number] : 1995 Acct:[id number] Age/Sex: 29 / F ADM Date: 10/18/24 Loc: ER Room: Type: [facility] ER Attending Dr: Ordering Provider: Kassidy Arriaza [...] Jr., D.O. 10/18/2024 2:21 PM Dictation Location: [place] [address] Tech: Natalie Haji Transcribed By: MAITE 10/18/24 1421 Dictated By: Sravan Dickinson Jr, DO 10/18/24 1419 Signed By: 10/18/24 1421 Normal [facility] Unlisted Lab Teston 10-19-19 [facility] Urinalysison 10-18-2024 Bilirubin,Urine Negative Normal Negative [facility] Comment on above: Order Comment: Name Collection Type:: Clean-Voided Midstream Performed By: #### U A, CUU #### [address] Glucose Ql (U) Normal Normal Normal [facility] Comment on above: Order Comment: Name Collection Type:: Clean-Voided Midstream Performed By: #### U A, CUU #### [place] [address] [place] Nitrite,Urine Negative Normal Negative [facility] Comment on above: Order Comment: Name Collection Type:: Clean-Voided Midstream Performed By: #### U A, CUU #### [place] [address] [place] Occult Blood,Urine Negative Normal Negative [facility] Comment on above: Order Comment: Name Collection Type:: Clean-Voided Midstream Result Comment: PERF ORMED BY: [place] [address] PATHOLOGIST EXECUTIVE ADMIN DAMIÁN DOSHI M.D. Performed By: #### U A, CUU #### [place] [address] [place] Protein,Urine Negative Normal Negative [facility] Comment on above: Order Comment: Name Collection Type:: Clean-Voided Midstream Performed By: #### U A, CUU #### [place] [address] [place] Specificy [place],Urine 1.007 Normal 1.001-1.030 [facility] Comment on above: Order Comment: Name Collection Type:: Clean-Voided Midstream Performed By: #### U A, CUU #### [place] [address] [place] Urobilinogen,Urine Normal Normal Normal [facility] Comment on above: Order Comment: Name Collection Type:: Clean-Voided Midstream Performed By: #### U A, CUU #### [facility] [address] [place] [address] Urine Cultureon 10-18-2024 Bacteria identified Cx Nom (U) <9,000 colonies/ml mixed bacterial skin contaminants 2 Days PERFORMED BY: [place] [address] PATHOLOGIST EXECUTIVE ADMIN DAMIÁN DOSHI M.D. Normal [facility] Comment on above: Performed By: #### U A, CUU #### [address] Urine cultureOrdered By: Jemima Arriaaz on 10-18-2024 Bacteria identified Cx Nom (U) 2 Days [facility] Urobilinogen Test strip (U) [Mass/Vol]Ordered By: Kassidy Arriaza on 10-18-2024 Urobilinogen (U) [Mass/Vol] Normal mg/dL Normal [facility] pH of Urine by Test stripOrd ered By: Kassidy Arriaza on 10-18-2024 pH (U) 7.0 [pH] Normal 5.0-9.0 [facility] Comment on above: Order Comment: Name Collection Type:: Clean-Voided Midstream Performed By: #### U A, CUU #### [facility] [address] [place], [place] [id number] Unlisted Lab Teston 10-17-19 [facility] BOX TESTon 10-10-2024 BOX TEST SENT OUT [facility] [address]1 [facility] BOX2 10-10-24 [facility] Coding Summaryon 10-02-2024 Coding Summary HTMLBase 64 VwgihonvOWk3fSp+PGhlYWQ +BX1FVNPjW19miJUplZ2hW5 NMTElOSywgQVBQTElOSyIgb iYbJS0liOKoKUKn IC8+HS9nWPUfRmwaaBRet1I 5wIE0H78rhe5aXRtfuEH5YW OuVoHqxtcqu3kizWt9FTztY mluOyBt ICXovW40TJO8rK53Nt11qNS hyWFii1cnnOm7DpNePLIqMI F5nXudSZlqw6LpTNIyE80mk OVrk5U4 LLYaaOcepKSxTyGaqYC8rV7 pXNwoucsis7igggioBge2it 72wTIxa6F2vSO2Q6SpsrM7C GJvbGQg EedgtJSQrY1sdlycs0ntibs vHpJzMRUkHUo8EMg0JMXdyB qeGrVvZR64ZPA3PHZxbbIyX 2FsLWFs aLdsSnP9b8J3Qw5BQ8JCNui vS3SKGQEEZBuhjGD+PC90cj 18E2DgNcuaTzh3ZFIkHFH2b FG7rK4p BKKnKLras7U2tVZ9X3MeilT wqm0ds6zkYJAkMJhwL72xnB Mqe4R5UHAbmMA2BHJzqAapR iBzaG93 Oyc+DXWcsIxcz0RoYhkpd8v jb3zovZt6EavnSMIluhVpsL cgACH3j9ZbNd8qHYMfcMU3q OZ6tB2d BoHxIrK6YMlbU161DdIviYZ aKhlpY84sB0SneIV+PHRyPj q1DVOeyVewHG0gJ3GlIDErp mctbGVm rQljBZ5jNGRcsmtoJNWzjJ6 bLSBqQ5q3DfIaMwU8HTcfO1 ZkPUMyrfzhFt97eJ8dTpHxA jW9ABpp V8VrmzJ3BDVgnDFkDEefOPN 2D98te7P1DIGfSQHmHRB5xP L7kR1zkEmezsspiJYnbWtli mVydGlj PNmoJIheE302UKJacInmFzW vZGluZyBEYXRlOiAgMDYvMT cvMjAyNTwvdGQ+NJLlPLN4n WxlPSAn qBXgHQweCi6niQjmxRqrDT2 bWPMshnowYKQncH4fYHZfkM FjbOvkSB2xRSJwsiosr300S iAxMHB0 ZAQxqYOuX4RfnE4rIkUxJUO kQBDzT7AxjKQoOHldG883KZ ucLoE9HXEhasJvL5ZpYQOnv WduOiB0 w9R8Au9Nw9EglskaX4BhpBA rEdVzSkzcBYi3W6UwHdygiP I+UA08BUTdRM07POo4IXA0r WxlPSdi VTRgS3LauO7lAlIbXPPdUOY kOyc+PHRhYmxlIHdpZHRoPS kwVWNtKtAcrDsqTB0gMm2rC GVyLWNv hQguvHWqNgZzq5ldNVGrAOc vYM7xpSdzB6HamWA8AIHxt8 g6Le40B94oE4HdnRI+PGNvb KJ7qJC0 fO2bZcHcKgD8GQeyM111QvF hwVNdSvycn7uvj2hqjGz0Mn Z1OTSqxhDccPpgQRD4q0CaL j79S34q IHdpZHRoPSIxNSUiIHZhbGl ujr2ozC8fLl2+UGJteOM1tC L1eC4wBfRmCqX4IRkaR762C nRvcCIv Fdhhf8dyc0vveLx3FhBtNVE rqpWaaNobRWU0v9ZpMo27R7 AwbEvac3LwQue7rw78dQNjl 4X8iJP6 V9IyNYTbfacvzCEtrYmqIX2 eDTNqlsvlZBJghP9aQHJnZ0 o9XcDvSlM6ZMsuT6AqqqY5Z GJvbGQg YWKbbGOTsI5gczkvj8hsyzh cYaGjHTXzVFl1IAd6QPXenM wnWcOeHCA5IyJ2MVD6kHWtt S5swYzx bmxbbM8lQnx+AZI0mYAruUG XBW2lCswahUQ+LAWbSUH9iJ bpOGtqIJJiaQ1yRVMrR5j3A iAwLjA1 XYaxM0RageQ5YMWvyDGmSTK ggQFAwK2bmigwx9utmlpeGi QfREYuBFa3DRq5ILAjeTvjH iBsZWZ0 ZpZ2TPE8qTIfbO7atXnuboa azJ5vPto+QdytaAxyOYP0LR h8E6NeYlz8QJBfbRuxPS1si GFkZGlu Mr8imEurcQmjNF4uELGipbn dp438WfQir8yqTRMhmUJzSI weXAL9K36kg9D2EPNcRZGuC HE1jGT3 fN7bhGuifqarbTQpuXjkslL fpZvcDPctNKfnY027SQYrlB xrIkTbAYw0Q6JgJrg7PJQmg EgqJS4x jTKpLAjmKe3qlNverAglXZ4 fDIJfktiic406FjNbo1wgSJ RamPObSTzhGGE3R40nk1G8P CMwMDAw CEA3bXQ1hP6ykQrnvfzeiXV mdDsgdmVydGljYWwtYWxpZ2 60RHFkfLkoHrNbtHb9P2HvI ql3RLGo cQjhIQ1qbWMhQQpdOm3lhNt spZktKX7yCSBgisrwg457Oh Znf3xdAGAdtZPcQSbtXQP1A 47ro7P6 XJPjWUKyDZI0oVU9pB6uzRf nbjogbGVmdDsgdmVydGljYW dmVLagQ351LBDqjBhrUkLgp GllbnQg WRxsCGp7V3HjYxsllLQ+PC9 6FSYaCT14lJKjuAHkt5zxbX x6RaPfKEUnBWT2cWnjVYqky 3JkZXIt S50foXGuw8C8LVZpmDrgrEG xWyJwwQQ5xP5lBZvzhfrft4 cioqzxEdlbi8jgej22oY04M 29sIHdp ZHRoPSIzMCUiIHZhbGlnbj0 qvT7mYv2+XJErjTS9jWV2nO 7mTVHxIhX0BFtlZ839DkLga CIvPjxj e3rbu3zzgUw3FrT2HKIuwuY spEebKAT6z1UeGf19I81kSM dpZHRoPSIyMCUiIHZhbGlnb l4amA4f Ii8+ZAFfwAP0zGK9xO7kFzS pWzH1DQriT355WvPhrTJhSm mkN58aF2BkbUV+ITNwDkq9U CBzdHls DY4fjMYvLOevAs1jBCY7FwA uTxErPYtmM3CvCXOqrvhbvs lpmKV8VYMsMSTkxM76Jt7jq DogMTBw yMRRoQ7fwtgkq4kueiajMzE cQSHsYZq9YPq2KSSppZfnLn RxQWV9YkU8USI8gAOhwW1vx Glnbjog uC0gM3LoKMZqonwnHo77eV1 hLxLqMxZ5JYpqVaa+TUNDQU 5OLCBIRUFUSEVSIEVMSVpBQ kVUSDwv dGQ+XFKaNWS8uZcwNMxoZXI vrE8uCMNmY7l6BaEtLoW6EE lbV4QtAPCbdmryUa42gE8vJ iAwLjA1 XOpaH3FzojO8KLEauZTcYRr dEXA1K58om1K0YQDtKXXaQG W5iOR9bE1dhCokdhdtjLNbp DsgdmVy wTyxHUekBOwbY066WTYsxAj qWuPjHuJ2AcX0ZEC9Z9GyQn j6DEVuzAiiVF7oxNIgPYysI r2isYkg cPikIO7gNRFsldrkNCCpkX7 yHDNnfVAglFuoVP4cMQFloh spw267CkAtITU8LHBaoQGxE 4BikZ4h AlJhCVDvBQSbH1MnlAJmUPw cX054FOfbUuB7QVFjefXiV2 CuDJJkzIyjPaY9p2D2Aw5mK SBZZWFy czwvdGQ+BNPxSIH9pYpnYDh tYZHejL8fFHQvK2z6VcXgWx T4XPfzB5NnQCOutaxaPl68l P8fQkTk GkT3GZgiG4WuzoR7WQBolSG sDNyhPXU8J37ww1F8FAMzOE BcBEC9oYE7kL4pdSytumlhs GVmdDsg vzBeuEkqCRtsMFkyK889TWV vcDsnPkZFTUFMRTwvdGQ+PH NxUZS0bBeaKWatTXRrnP4vS CMsB4p5 MnOcZaE6YXdwS4LaAKFltku zKw05qD9oIxJuKcB1JTdkQ3 MlavQ4QIPevSXpNRcdMOL8O 30ek8F3 VSMkDZJiDDX7gGD7xV1loNl nbjogbGVmdDsgdmVydGljYW vnGKqeS022CGKbjIprCo8NZ R29BO91 Q6SqBpzbdIQfrNU+PHRhYmx lIHdpZHRoPScxMDAlJyBzdH poPS7gGa4hRUXgFOUeaXdoz HNlOiBj m0zeDPPuEUwpNQ4cmFqdI4O qcUZ3EORtq5r6Bp67T47hK9 JvdXA+NLClrGY2jTN8xQ2fZ zAlIiB2 KEziN152TlLotWDsYgrci8l bu5bhuXu9OcXtLGSunbDagX oiEQY2d3KsUp23A09rLGooY HRoPSIy XQXySZMxaIokfe6fnZ0jBe8 +JTKfnCK4hNV7tF7hSnOlPo W4RWsdM874JnLefPOeNeqrM 41oX0Ra dXA+HBVoEiv7UBCswXjbOU0 fdAXsJLfrGr0fQTG1KdEtRj XgYNtgJ4McIBDrvwabpecfx HI1DREl XDJqgG44Tr2vrMauKk0uMFG tMOD9HVBzbRMmX1JilU9gCx GoLQYeLHFaY7UsoJWqPMtvO 246IGxl KcX3ICJdpbPyC5RnOMYvpNa lWhU8h9N9Yj8CoNpmuVDgZQ 2mPuBlXJk8M6ZdEau4DUDmo DavAY7c xJPiQRocQx9plNebuRuvEJ3 xZNKaptepn619OtGpc5zmVU VglNKmVEhgCRE9M94qx1V0D CMwMDAw AJK9uIZ4oH0eyOcmvwiryGP mdDsgdmVydGljYWwtYWxpZ2 80SZBnwYneEoOZPgw4S9IvW wc0MVEx kGksNJ0hbIMhYYtvRb3pbWk dwRnpFF5rPGDtvubuk499Pd Ipr4yyZELgfFBlOVsxJLH7R 45mz6Z9 LALbLGAwFGR6yZZ0vF0rcXo nbjogbGVmdDsgdmVydGljYW dkIRpuY770LUKifLjkDa1EU vz9V3Qx Mqa3UJCnhGpgNM2zrNMuAIw nFy5kpIaybXswBP4pMTSlku iqm877RjQzh8nmEINigWItR GltZXM7 X80ib0M7UGAsHAAzBPD5nEX 2jZ2oyGzypyxnrYEuhDzjec EkmTdrBSuwEHxlT814PWBep DsnPlBh eWVyOjwvdGQ+OF38or96E8J tGpuyQxc0IQSgHOE6oRE0eQ 3xWJDyUPuah5U5xTU1C1Ptz tXabr6h b2x (more content not included)... Normal [facility] Compliance Drug Analysis, Ur LCon 10-02-2024 Summary LC FINAL Invalid Interpretation Code [facility] Comment on above: Result Comment: ===== TOXASSURE [...] test is not intended to distinguish between aglfr-3-mbbzexhbidnygqjxbclb, the predominant form of THC in most herbal or marijuana-based products, and kpzsi-8-rcaqcywswssnqqxaduyo. Lamotrigine PRESENT Acetaminophen PRESENT ===== Test Result Flag Units Ref Range Creatinine 45 mg/dL >=20 ===== Declared Medications: Medication list was not provided. ===== For clinical consultation, please call . ===== ToxAssure, ToxAssure FLEX or MAT drug testin -Technical component - Data analysis performed at [facility] [address]. [phone]. Electronic Device Monitor César Bains MD. ToxAssure, ToxAssure FLEX or MAT drug testing: -Technical component - Result certification performed at [facility] [address]. [phone] Electronic Device Monitor César Bains MD. Performed At: [facility] [address] [place] [address] [id number] Brendon Tsang Ph:[phone] Performed By: #### 1 [id number] ####[facility] (DEFAULT)[address] [place] [address] C Urineon 09-28-2024 C Urine Mixed skin, or urogenital damián. Clinically insignificant Normal [facility] Comment on above: Performed By: #### 6 [id number] ####[facility] (DEFAULT)[address] [place] [address] HBsAg Screen LCon 09-27-2024 HBsAg Screen LC Negative Invalid Interpretation Code Negative [facility] Comment on above: Result Comment: Perf ormed At: [facility] [address] [place], [place] [id number] J Luis Gray PhD Ph:[phone] Performed By: #### 1 [id number], 2630672, 9041268, 30259118, [id number], 33724445, [id number], [id number] ####[facility] (DEFAULT)[address] [place] [address] HIV 4th Gen Screen w Reflex LCon 09-27-2024 HIV Scr 4th Gen LC Non-Reactive Invalid Interpretation Code Non Reactive [facility] Comment on above: Result Comment: HIV- 1/HIV-2 antibodies and HIV-1 p24 antigen were NOT detected. There is no laboratory evidence of HIV infection. HIV Negative Performed At: [address] [id number] J Luis Gray PhD Ph:[phone] Performed By: #### 1 [id number] #### [facility] (DEFAULT) [address] [place] [address] RPR, Rfx Qn RPR/Confirm TP L Con 09-27-2024 RPR LC Non-Reactive Invalid Interpretation Code Non Reactive [facility] Comment on above: Performed By: #### 1 [id number], 4513228, 6709029, 31476125, 0485968985, 65076803, 5349912550, 46604904 ####[facility] (DEFAULT)[address] [place] [address] Rubella Antibodies, IgG LCon 09-27-2024 Rubella Antibodies, IgG LC 2.78 index Invalid Interpretation Code Immune >0.99 [facility] Comment on above: Result Comment: Non- immune <0.90 Equivocal 0.90 - 0.99 Immune >0.99 Performed At: [address] [id number] J Luis Gray PhD Ph:[phone] Performed By: #### 1 5626779, 9463692, 4674180, 06736839, 8272036387, 71229007, 7126706348, 96931089 ####[facility] (DEFAULT)[address] [place] [address] .Auto Diff 1on 09-26-[address] [facility] % 6 % Normal 04-29 [facility] Comment on above: Performed By: #### 1 8665495, 1316446, 6977479, 02510832, 0242358336, 63475189, 6210912967, 57762962 ####[facility] (DEFAULT)[address] [place] [address] Baso Abs# 0.0 x10 Normal 0.0-0.2 [facility] Comment on above: Performed By: #### 1 3264356, 6369869, 8606648, 86507690, 2695949627, 74933982, 3954998735, 43522680 ####[facility] (DEFAULT)[address] [place] [address] Basophils/100 WBC (Bld) 0.1 % Low 0.2-2.0 [facility] Comment on above: Performed By: #### 1 1017110, 8717029, 6072401, 62451674, 4259557996, 85110598, 7427635411, 68808730 ####[facility] (DEFAULT)[address] [place] [address] Eos Abs# 0.2 x10 Normal 0.0-0.4 [facility] Comment on above: Performed By: #### 1 4870205, 4135505, 3045232, 03014265, 0298965275, 73066727, 1805639755, 28864068 ####[facility] (DEFAULT)[address] [place] [address] Eosinophils/100 WBC (Bld) 2.0 % Normal 0.9-4.0 [facility] Comment on above: Performed By: #### 1 0109123, 1735426, 5212528, 54525251, 2965944266, 10212770, 1026248058, 19431309 ####[facility] (DEFAULT)[address] [place] [address] Lymph Abs# 2.0 x10 Normal 1.3-2.9 [facility] Comment on above: Performed By: #### 1 8916221, 4457746, 6517174, 88867410, 6273056226, 89238690, 2289305750, 12164795 ####[facility] (DEFAULT)[address] [place] [address] Lymphocytes/100 WBC (Bld) 26 % Normal 14-48 [facility] Comment on above: Performed By: #### 1 2658309, 2763569, 7395421, 85862231, 0858973257, 00592959, 1603470164, 53546689 ####[facility] (DEFAULT)[address] [place] [address] [place] [facility] Abs# 0.5 x10 Normal 0.0-0.8 [facility] Comment on above: Performed By: #### 1 8494323, 3940571, 6968638, 52246456, 7391746665, 83972371, 5996493422, 65854078 ####[facility] (DEFAULT)[address] [place] [address] Neut Abs# 5.1 x10 Normal 1.5-9.2 [facility] Comment on above: Performed By: #### 1 8719857, 0662492, 3217644, 28065801, 1404394071, 21311741, 3078443226, 21581018 ####[facility] (DEFAULT)[address] [place] [address] Neutrophils/100 WBC (Bld) 66 % Normal 44-88 [facility] Comment on above: Performed By: #### 1 5201854, 7062101, 7313528, 91310872, 5836070358, 21612270, 0061803300, 30715894 ####[facility] (DEFAULT)[address] [place] [address] ABORhon 09-26-2024 ABO and Rh group Nom (Bld) Hx Check: Not Found Anti-A: 4+ Anti-B: 0 Anti-D: 2+ DCon: NT A1: 0 B: 2+ ABORh Interp: A POS Invalid Interpretation Code [facility] Comment on above: Performed By: #### 1 0971657, 4146350, 8453223, 28736059, 8611934981, 07448386, 7075217253, 01722433 ####[facility] (DEFAULT)[address] [place] [address] ABSC Gelon 09-26-2024 ABSC Gel Negative Normal [facility] Comment on above: Performed By: #### 1 7399605, 3874272, 4129333, 69388493, 2145982207, 40827147, 5114245789, 83620810 ####[facility] (DEFAULT)[address] [place] [address] CBC w/ Auto Diffon Erythrocyte distribution width (RBC) [Ratio] 13.2 % Normal 11.5-15.0 [facility] Comment on above: Performed By: #### 1 6730105, 1120556, 9169635, 99587412, 9328646096, 73714349, 7177968053, 09856984 #### [facility] (DEFAULT) [address] [place] [address] Hematocrit (Bld) [Volume fraction] 39.9 % Normal 33.7-40.4 [facility] Comment on above: Performed By: #### 1 8269547, 2493417, 7445785, 78331685, 1076916330, 84756785, 6659297201, 54824871 #### [facility] (DEFAULT) [address] [place] [address] Hemoglobin (Bld) [Mass/Vol] 13.9 g/dL Normal 11.3-15.9 [facility] Comment on above: Performed By: #### 1 3165029, 0475083, 1641578, 83925066, 9926858642, 45176236, 3781239604, 88092601 #### [facility] (DEFAULT) [address] [place] [address] Man Diff? Auto Invalid Interpretation Code [facility] Comment on above: Performed By: #### 1 9465247, 4619102, 9561409, 17743816, 5167284845, 20907275, 4517610413, 49065256 #### [facility] (DEFAULT) [address] [place] [address] MCH (RBC) [Entitic mass] 29 pg Normal 24-34 [facility] Comment on above: Performed By: #### 1 5172393, 0890498, 7728142, 94079634, 3031893082, 26625764, 1812260853, 95634531 #### [facility] (DEFAULT) [address] [place] [address] MCHC (RBC) [Mass/Vol] 35 g/dL Normal 26-37 [facility] Comment on above: Performed By: #### 1 4046238, 5862526, 5079804, 30930977, 3922727089, 24698369, 8700828186, 52734145 #### [facility] (DEFAULT) [address] [place] [address] MCV (RBC) [Entitic vol] 84 fL Normal 81-100 [facility] Comment on above: Performed By: #### 1 3766183, 1630351, 4687759, 95778969, 9190871234, 83512785, 4566918247, 86782342 #### [facility] (DEFAULT) [address] [place] [address] Platelet 210 x10 Normal 138-427 [facility] Comment on above: Performed By: #### 1 7797665, 9901770, 6864212, 33855680, 3487842145, 03505249, 5886976543, 44124410 #### [facility] (DEFAULT) [address] [place] [address] Platelet mean volume (Bld) [Entitic vol] 6.3 fL Normal 6.3-10.2 [facility] Comment on above: Performed By: #### 1 6158525, 1238856, 0528350, 31168195, 1710129949, 41904859, 0168605896, 67516056 #### [facility] (DEFAULT) [address] [place] [address] RBC 4.76 x10 Normal 3.70-5.30 [facility] Comment on above: Performed By: #### 1 7285016, 9870767, 6807877, 51400182, 0170594288, 25793241, 5132558474, 43141703 #### [facility] (DEFAULT) [address] [place] [address] WBC 7.8 x10 Normal 3.5-10.5 [facility] Comment on above: Performed By: #### 1 4777332, 7608214, 3376547, 49016721, 2036355341, 36444543, 1744755537, 40696514 #### [facility] (DEFAULT) [address] [place] [address] HBV surface Ag IA Qlon 09-26 Hepatitis B Surface Antigen Negative [facility] HIV 1+2 Ab+HIV1 p24 Ag IA Ql on 09-26-2024 HIV 1&2 AB/AG Non-Reactive [facility] HgbA1c Standardon 09-26-2024 .Hb 13.1 Invalid Interpretation Code [facility] Comment on above: Performed By: #### 1 9233501, 7104948, 3817794, 54028927, 7985191280, 25784028, 7226504859, 78571274 ####[facility] (DEFAULT)[address] [place] [address] .Hgb A1c 0.38 g/dL Invalid Interpretation Code [facility] Comment on above: Performed By: #### 1 8898357, 3336998, 6635498, 22278060, 6964085792, 61470913, 9741126735, 44279077 ####[facility] (DEFAULT)[address] [place] [address] Glucose [Mass/Vol] 91 mg/dL Invalid Interpretation Code [facility] Comment on above: Performed By: #### 1 7213273, 2750106, 2326308, 93527077, 7843596827, 06069060, 3519569501, 25917165 ####[facility] (DEFAULT)[address] [place] [address]65 HbA1c (Bld) [Mass fraction] 4.8 % 4.0 - 6.0 % [facility] Comment on above: Performed By: #### 1 8877688, 6721076, 5559510, 66991980, 4097537937, 48338047, 3652408542, 16200041 ####[facility] (DEFAULT)[address] [place] [address] No Panel Informationon 09-26 [facility] Provider Orderson 09-26-2024 Provider Orders [id number] [id number] Normal [facility] Rubella IGG immune statuson 09-26-2024 Rubella immune IgG 2.78 [facility] T. pallidum IgG+IgM IA Ql (S )on 09-26-2024 Syphilis Non-Reactive [facility] Type and screenon 09-26-2024 Abo/Rh(D) Positive [facility] Ultrasound - Officeon 2024 [facility] HCG ( test) Ql (U)o n 09-20-2024 Interpretation and review of laboratory results Abnormal [facility] Preg Test, Ur Positive Negative [facility] US OB TRANSVAGINALon 025 US OB TRANSVAGINAL [...] II, MD, PHD at 21-Sep-2024 08:26:46 AM [facility] [place] [facility] Normal Not Available Comment on above: Order Comment: US OB TRANSVAGINAL No LMP recorded. Urinalysis macro (dipstick) panel (U)on 09-20-2024 Bilirubin, UA Negative Negative - 4(70) +++ mg/dL [facility] Blood, UA Negative Negative - 50 Yehuda/mcL [facility] Clarity, UA Clear [facility] Color, UA Yellow [facility] Glucose, UA Negative Negative - 2000(110) ++++ mg/dL [facility] Interpretation and review of laboratory results Normal [facility] Ketones, UA Negative Negative - 160(16) ++++ mg/dL [facility] Leukocytes, UA Trace Negative - 500+++ Kourtney/mcL [facility] Nitrite, UA Negative Negative - Positive [facility] pH, UA 6.5 5 - 9 [facility] Protein, UA Negative Negative - 2000(20) ++++ mg/dL [facility] Spec Grav, UA 1.025 1 - 1.03 [facility] Urobilinogen, UA 0.2 0.2 - 12 mg/dL [facility] CNNURSEon 09-03-2024 CNNURSE Nurse Visit (REIAV) JAZ SANDERS ([id number]) 1995 F Date Time Provider Department 09/03/24 10:40 AM US TECH [facility] REJ REIAV During your visit today, we recorded the following information about you: Charisse Weaver APRN.POLICE BOOKING OFFICER 09/03/2024 5:42 PM Signed Jaz Sanders here [...] 2024 5:39 PM Referring Provider: SHELLY HERNANDEZ [[id number]] Allergies As of Date: 09/03/2024 (Not on File) Date Reviewed: 08/20/2024 Reviewed by: Shelly Hernandez APRN.CNP - Fully Assessed Visit Diagnosis:Early stage of (HCC) [Z34.90] Order(s):OBSTETRIC ULTRASOUND I [[id number]] Order #: [id number]. #:[id number] WPOINTQty: 1 Prescriptions as of 09/03/2024 - [...] Status:Closed by BRADFORD DOSS on 09/03/24 [facility] Examination level ultrasound on 09-03-2024 Indication Viability, Repeat Impression - Single, live, intrauterine . - An intrauterine gestational sac with a yolk sac and pole is present. - Bithlo rump length measurement is consistent with the [...] Read By: Bradford Doss M.D. MATERNAL MEDICINE [facility] Radiology Study observation (narrative) [facility] CNNURSEon 08-28-2024 CNNURSE Nurse Visit (REIBD) JAZ SANDERS ([id number]) 1995 F Date Time Provider Department 08/28/24 11:10 AM [facility] 2 [facility] BEAC REIBD During your visit today, we recorded the following information about you: Shelly Hernandez, LABORATORY ANIMAL CARE VETERINARIAN.POLICE BOOKING OFFICER 08/30/2024 4:36 PM Signed Jaz Sanders is [...] scan next week as scheduled Shelly Hernandez APRN.POLICE BOOKING OFFICER Mikey Torres MD 08/30/2024 4:36 PM Signed Viable ratliff IUP Size equal Date. Plan: patient to follow up with her ob for care. Stacy Banuelos MD Referring Provider: SHELLY HERNANDEZ [[id number]] Allergies As of Date: 08/28/2024 (Not on File) Date Reviewed: 08/20/2024 Reviewed by: Shelly Hernandez APRN.POLICE BOOKING OFFICER - Fully Assessed Visit Diagnosis: resulting from assisted reproductive technology in first trimester ([facility]) [O09.811] Order(s):OBSTETRIC ULTRASOUND [facility] [[id number]] Order #: [id number]. #:[id number] WPOINTQty: 1 Prescriptions as of 08/30/2024 - [...] Status:Closed by MIKEY HENLEY on 08/30/24 [facility] Examination level ultrasound on 08-28-2024 Indication Viability Impression - Single, live, intrauterine . - An intrauterine gestational sac with a yolk sac and embryo is present. - Bithlo rump length measurement is consistent with the [...] Read By: Mikey Torres M.D. MATERNAL MEDICINE [facility] Radiology Study observation (narrative) [facility] Xavier 08-24-2024 CNPN Telephone (REIBD) JAZ SANDERS ([id number]) 1995 F Date Time Provider Department 08/24/24 [...] Date Reviewed: 08/20/2024 Reviewed by: Shelly Hernandez APRN.POLICE BOOKING OFFICER - Fully Assessed Reason for Visit: Patient [...] Encounter Status:Closed by MARIANNA WARD on 08/24/24 [facility] 08-23-2024 MIL Telephone (REIBD) JAZ SANDERS ([id number]) 1995 F Date Time Provider Department 08/23/24 SHELLY HERNANDEZ During your visit today, we recorded the following information about you: Angella Mccarthy 08/23/2024 10:39 AM Signed Name: Jaz Sanders called today. : 1995 (home) [phone] (cell) Reason for call: pt called today informing the nurse she has been experiencing pain of level 4 from 1-10. Pt has been experiencing pain for 2 day. 5 weeks today. The patients preferred pharmacy has been captured for this encounter? Angella Morillo Doctor Of Dental Surgery Shelly Hernandez APRN.[facility] 08/24/2024 5:58 PM Signed spoke with Jaz, [...] slot. Call to patient needed: no Morillo Doctor Of Dental Surgery, Lana 08/25/2024 8:37 AM Signed Pt is scheduled on 09/03/2024. Shelly Hernandez APRN.CNP 08/27/2024 11:51 AM Signed Addended by: SHELLY HERNANDEZ on: 08/27/2024 11:51 AM Modules accepted: Orders Allergies As of Date: 08/23/2024 (Not on File) Date Reviewed: 08/20/2024 Reviewed by: Shelly Hernandez APRN.POLICE BOOKING OFFICER - Fully Assessed Reason for Visit: Pain [78] Primary Visit Diagnosis:Early stage of (HCC) [Z34.90] Order(s):OBSTETRIC ULTRASOUND I [[id number]] Order #: [id number]: 1 FUTURE Prescriptions as of 08/27/2024 - [...] Encounter Status:Closed by SHELLY HERNANDEZ on 08/24/24 [facility] Coding Summaryon 08-22-2024 [facility] ElxctvhkOFe5pBy+PGhlYWQ +ZL3LFVKcZ32qxQJfoJ5kU5 NMTElOSywgQVBQTElOSyIgb pDjFM8bcDSePZWv IC8+QK2iHWOeWeixkBAsy1S 1iCH6H37rzm1wNVyfhYE7KR EtUsNxxkakp5ctmCc5JDuhK mluOyBt DGZbkQ47XKA7aU94Wr20mCX loUGlh8elhVx1OxXgPUFbEM Z4iKntPYhrb6ReHIVtY78pd VKuq7I6 OBGogKwtwVMsBcKklJF5hE4 bLNhgduqym6ffmcweEqc7mi 63iVNpf2Z4bXC3S7MfctX9S GJvbGQg OevakHDSrV7cmyhgb7qyqjd kXiVeTAQiPQq6KDr0UQPocJ xpZpGfOE92LPS8RZColeXiI 2FsLWFs qXkcPdI9h0N3Ia9TT6REMzw sD0GDGLKRYNywsBV+PC90cj 96Z1YfBckfTil2PWWyOST7j GH1hI7y MCApILhtn1C8nAZ5W4YrubX vta5gy7kyYSZxEIndN35hbP Fut8M4POYliUQ8TSUnxPxlI iBzaG93 Oyc+HNJptAvts9UhLyvyy1i dk2hblUu0JfijUUAgwjKeoW vrRUZ9f0UnMl4rCEWipFH5o LE4kR5e EcJkVtP3LWpvC827DbFfhZQ kZirpT39aT2OmqJZ+PHRyPj d8SDTsvBazOO7gS4CmGNLnf mctbGVm aEvyTQ6mULDibcrdYDVhtF6 aOYYnF1u1MjIhHwJ3DLfnT7 VzXDJinwqsNx23kD0wCqVrB vT0PXkf K0SjspV7IHRbpEWaKRiiXSS 4Y58hi9M6BKMqZACgIOV5yT Q0cF7jhAfwdgzqfCIvhWngr mVydGlj FDooZEowT543HORoiGfeSwY vZGluZyBEYXRlOiAgMDUvMD cvMjAyNTwvdGQ+KBZkYKQ5d WxlPSAn ySVhTVccSp6dzCgfdXqmRN1 aVCHatylnZCImcR0bLGGyaS MiaShrIV7wRTNckzoic510M iAxMHB0 NTYejZUwX7SmdA2bJiQeVES jURNxC1IpeRYrHVtyN182VU chGjC8HNOypvSzS7KgVKIdi WduOiB0 l6O2Nb0Hz3CzizkcG2KhtPP wRpEbVupiFVk9F9VfQzgvqS I+SV15LUNtTU08ZBq4GBG2t WxlPSdi SEXrZ7WahV4oNkDwDLNyNEC kOyc+PHRhYmxlIHdpZHRoPS riNFAfYbHhmVpgDS4eMs9tN GVyLWNv sKfuoMFuBpLtn6lnDONvHOm sQY3znWewR4YulVN1JAJzn7 p7Kj08S47fD8QlzJL+PGNvb HY7kEQ6 fW2aCxOxBxT5EIacT982GcT kfZVwDztwj7jzw8zgkVr6Vg E6VNKqpxAouGokCPD8r5JzI u13J48j IHdpZHRoPSIxNSUiIHZhbGl jra3zuS1vMf3+TNGsnDJ6dD W3wL3rTaGaKhP1GGhtK142T nRvcCIv Mpcie9dgr4zxrJd2RqGoAEW nfeNguBbhBOF3m0XuAy73O7 UnqFomf7KcGls0lo96mTWfc 0L0kGE8 M8AbRLPabmkofKKoePfkPT2 eOAOmwpalJCIbxG0tYMRmP2 l1AkSdXeA2FTdyQ3ZvroU6W GJvbGQg CKRpxBGGhE7dmmlje2ueqtz bSsVgFOYmPDr6PEn5ZDEhwR nuFuWaPZB5DiO1UEL7cODyz K5vfAzy kwohfW5hBid+CNG7hBIfmMJ OCL0gUluhkYM+WJCuOZS2tW cdOVwyDHFgiN2eWOLuE9w1Z iAwLjA1 MAsmS8TvofY4RGDurXRjVRN tgRBThB6bmemnv1digoqjXp DiLEOiCSe8WWm4UXNitXaoN iBsZWZ0 PoS3BJQ6qVZiuC8hsLsxfjy urI1wYge+GdondHhxYXR8BO i2P7EyAlp1TXQqlFyuXV2nz GFkZGlu Ra0jvKlmqWokAJ4zCKDdmqa yg335PxCqj4doRQFzqYZuMQ laGRK6N83sm0C7WEDeVPBwI LU9fDX4 oA6qaNohexyicYOxeDolswC ztAigPPcqERccD910HYVaoT cfSaNiCGt4F2RhKfb1SIQqo VxxMA8t zLXeYUszWh2rmDpczJxeQK9 rLMDxcpsvw391XtDaw7jbLC VouQBxWLqaFGP6U33ih8Q7E CMwMDAw VPK1dMX2gJ2hmMwmoaezyGQ mdDsgdmVydGljYWwtYWxpZ2 04UWMxeJgzLbPdyZr3O0RuQ vl0JEHd kGuhYD7xfJVcKPpwAy2ltUx bdAdrUN3mZWVxdlvcf279Lr Nxp1gkWJOdqQRvGKegBOG6L 52lq9Z3 AYPhBJKaZNX5nKC1jG4iiZl nbjogbGVmdDsgdmVydGljYW avKKctY282BMMyoPhePaUrf GllbnQg BKciQUb3Z2SgEidapMD+PC9 3EBNdQU57zUMrxSUrh4nxuI o7MnSgXLUkUGB3nTgkBCzyb 3JkZXIt K38enOXwl7C0QSTuhJnbqSL wSvTbcJJ1tO4qCJwujdctw6 zyrxfvPafpx4pzfr74lB65E 29sIHdp ZHRoPSIzMCUiIHZhbGlnbj0 kuH6nGo1+SWEzgLF8cGC4sR 3bEJLfAuN6SSchP527RzLer CIvPjxj k4xrm8ivcJd6NmB6PRNsifD vlXqdXMH4m7ZqYf82K31yXB dpZHRoPSIyMCUiIHZhbGlnb j3hvJ2c Ii8+XXFgiRR4jMA2rX1yUyJ pMdM0JQpaY188IjXerNIdLg pjB08wK1XfjFE+DTPgOhz7J CBzdHls CR0rfHMyRCbwNb4wZBB3OyT vPzWzGBehQ6XzFICjbphabx ytzTX6GPLuBKOfaP45Wo9wa DogMTBw gUXVwB4hcyclr7jmmhgtFzE cVOFuONp9JVe1ISYywSxlQt WdRMW6FxJ8GGY6gMYbeP3lv Glnbjog rP8uQ6UhLGPzmggfTm11fD2 xTnUuShF3HSvbEof+TUNDQU 5OLCBIRUFUSEVSIEVMSVpBQ kVUSDwv dGQ+RKAxMTT7dVwaAUkaANB pzL8zIEHyI3s5TvVgPxO4HZ onB2KpJYDgdfzpPn83kY4rJ iAwLjA1 XPlkR8RvcaB5SLNvjHNhEGj bKNT5R64vd2C7TJMeNXRfFG X4jJK5jI0lnLrwhrolsSWpr DsgdmVy hJnfQQleXKagR418EZUoxTe mEeZqMfJ1XsV2OZB7O0RmIw c7NKAzjSomKD1ixXMdSQfyJ n0kbKvb yVyuUO1sRTUwtoriQBUywY5 lQXVmqQUhgErnIG1eTCBmin lth670ElTqNKQ3XXVkyEWvL 5LopQ5x HbIbMHOuHSQyL5EctFKeWPl wO169PLlnXhO7WYYdiyBoZ3 NbEROalKdqZcU1f5V8Hm7iO SBZZWFy czwvdGQ+KWZtSHG3pLpzLXa bWDYszK2pBSHcZ6t3ExMlLy W1UWblF5QeZRYnhrwdRz96r W2wOzFq FgN8OEraH5UyvoV0KUZbfNO iPCnxABQ1P58sz2W8NOTtQN HbIDW1lBD7sV5amOqrsdxem GVmdDsg szIjsBehFXkzKObmH067WRN vcDsnPkZFTUFMRTwvdGQ+PH DgLEX9pWomCTvmSUVwsP8fI TWyU9l8 CsCqEgC7DDjwD6IoZFMngyu aSh85rD0gByKxIsY2EBzrV3 JyczM9KNWuqLKwVAszRZS1K 96ju9Y1 KYNyHAIbDKN3eGN4pP5waAa nbjogbGVmdDsgdmVydGljYW txKKfjA478VMLmqWtdNj0TR D23CA67 F3JpJnldwFNoiGO+PHRhYmx lIHdpZHRoPScxMDAlJyBzdH znCB2cSq0vTHFbJUFprIebi HNlOiBj h9ctASQtGSlmQB3lkVjlU6G kgRM4SWLvx2i6Sj64G91oK9 JvdXA+VYBdgMR2mGI1aY6vE zAlIiB2 BTfbF184EqAroZItXyfug3y ay8nseSl7BiWrKVLcomObmN qwBOD9f9IhNz11Z14oRPekF HRoPSIy BUJiQVFvpBknsy8rkQ9wRg1 +SZAasRM9yZA2fI4xSgDvJf Y7CCfkH423YqYxhUBxXfazY 31aP4Yd dXA+MJJnUvq5YMSzoWniES6 peAByJDepKr2tCDD3SvHaAd CbQCxkB2EqIGCceusovyyiw CA7MHXi NINxwI56Jx2auLpdBk3xOOP nZFZ8EHNvcCAvZ9ZptJ2xXq TpCFLhVFQhS3DrkLIaIAfkU 246IGxl DuB2LKQppyKjW0IhTMOohTl hYfF2t4D6Fq4JkBsfcDKqUN 5vIpKlDMv8U5LiKup8ZMKil GxcVZ2u hQKsGWjcWj1uzIdstAquFM2 rUORkupcgz360IgPmc3fiYT ZfyLTdDLdyVEI0Y29zx9Y4R CMwMDAw HAR3uZD3wI2peDphvnmkfVQ mdDsgdmVydGljYWwtYWxpZ2 95WEUzmWscGlTQAhn8P7XyX hb3RWOo bWcyPM4gtSIyIUcvZo5ziOj hvVqsTS4oAKYvfvukn069Tx Wrq2dnFXFjvKLoARlvYWD5Z 39sg9B8 BLZvMMMyJNO8oSG0lJ8faSu nbjogbGVmdDsgdmVydGljYW yuLWnaO736XPZddAvaEk1SH fd4A6Ip Qtl9UBNsoHimEV6quNOnPRd nOz3kuJthnVapVN2fSNCkkn yvt359EdNjk8vvACSemVUbT GltZXM7 R96so1N1CPWqDJSgWPX0cZS 7lH1stQniciqcbJTxwFmilw HtyEpoGBulGPdsF737PDMdg DsnPlBh eWVyOjwvdGQ+GD64nr43D5B fPquyZik8IOJkSAC9iHI4nZ 9bSOCbKTpdj4O1rSJ3H2Aru aQsxa3b b2x (more content not included)... [facility] Coding Summaryon 08-20-2024 Coding Summary HTMLBase 64 VxfwerqmBXd6oRq+PGhlYWQ +YE7MCNIjA46wmMSfgR8vU5 NMTElOSywgQVBQTElOSyIgb wMiZE0aeMKjBIKt IC8+SV1oVYZaAwqheNSdd4V 5gYE9X53xqi1vCLtagIZ1SR VbCnWikbpef9shxRp9BSibT mluOyBt XNZqcV99BHM4aK25Hh12pFL gnTRfy3eebDe0CjAvKEVwSY B1rZetTIytm7NxTSAuW97ek QGnq2H1 OKCgcRziyVUoZxNhmCF8cM3 fJYngflebe7rsxcjtJdg2bb 43oGWmg3M8cFZ7I1PayzG0B GJvbGQg QzcrvPCXdQ3bulxci2hpnlh fRfSbKORgPEf0XCk8TQHqyN zkWwLpEW86ABA4DQOsfsEgG 2FsLWFs rAueYxN0s5J2Gg7UR2STYgh mG0TCOKNEJYmhbUT+PC90cj 17X0UuVhwtWcf0DXNcECP8s UD0gV2m PDOzBVcpy7V7wCN8T9UwkfN wpc4iu6yfHQYrIPsaW19deZ Zji5Z4CKOfyEP9JXKdqIwfM iBzaG93 Oyc+SUDbdZcxs9SuUhlxj9w bn9xcdVi9TbvgVSQdkkOsrF zqFAQ0j9NyEl9qSITaaKY2m HB4yQ4k QiOdSeJ7CJhiT750UlBwqIE hLzumZ70wY0GnkXH+PHRyPj w6LWLkdKgmYB5qO0SrXTYwb mctbGVm mAdyGQ5yIUWmcsmiCGDisS8 jQMAhJ7d2MjJhWtV7EFgzL4 VdCMXyjxsgVf49uT9eZuOdR nS2LWsz Z5XofjF0RXAjuZYsSPnxDRS 0V15kl8H4PIJcQQTqLJQ9iZ A3uM6xtHdplvbqiQBzkSygu mVydGlj GMuzGNouC451QCPbkBaxHeZ vZGluZyBEYXRlOiAgMDUvMD UvMjAyNTwvdGQ+LNCfEBE9e WxlPSAn cDYgVTyuZh8beQfkuRucNT1 iSRWpmoanVETqzE2sXIVepV YcmNoaGC1lFZBpqmizc518D iAxMHB0 TGPgqZDsZ2JapT6jEfElWRF vCLSwN8UhlWBrDGgaO379QK whIwG8UXHlzfUtS4UbEVLwk WduOiB0 b8A9On2Kw2FfhgmmF0ZniLR pMtGiLwjvSNr6J5KtCvppaY I+WL20CHSlCF46FZy3GMO7y WxlPSdi YRZfC2KnuV7bXpDtRDUbNCJ kOyc+PHRhYmxlIHdpZHRoPS zpOQHoDkJzpJelSK3yQh8mQ GVyLWNv aXkfxYZmZxRmn9boOPPtZVe oJW5guEizA3LdvWN3NZAke3 f9Ls15G65pV2FvnXY+PGNvb CT6uIS9 zR3oQdSdFoL1TZnnJ933UzH ueBAuWdufb1htq9rngPq7Em J5LEBsglUhsFlgKQT0x8BlQ m25A23j IHdpZHRoPSIxNSUiIHZhbGl iiw0ngG6hDx9+YFWclPZ8bX N5oD0yJpNoNrS5DUrgP786B nRvcCIv Ytlli7gqq6xvnOz1FjHlWXF lcuJrnDrqBUR4f7LjBu47L9 KjwXnkk1UeUke5yh23nYYwp 2H3nDH7 X3TrAYTygjuouIRkaQemCN6 sPBPjcqljQQArgG1sFUFgB0 k5EsNcLxQ3JZblW9EkkjW0W GJvbGQg QLBrcWKUzY1mljvof4frnnj wOaGePXUdOFb1JDa7ASMegU flSxTaIMK2MmW4GRY7uYFxm Z8laXzl tbvrrY0zUuc+VLK9kCRbjUW FNO9zKuxkiCY+GYSvLPO6xK ecGPlpXKNqaH6yIGJxQ2z1C iAwLjA1 RGwdH7HsfrM1GWWcnPDeHVF lpJSNvB2gwumnr2hcrfgqBr GaAASxRGy6CDz6ICEyaStkR iBsZWZ0 PeD4FJT5uZOkaB8ftMkeibe bsK7kNua+ZeqauEjhAHH1AS t6X4ScMjj2ERHaaAjgMU2zo GFkZGlu Ir3vhKiqsImcXR7aOXTdawv no570TwIrn1abVEUcmWIhGT tyFQO6X69jn6T5QAAbRTYoY UD2vNC9 mZ5feUxnrdivjGMpbGzevzS ruXekSFnzYWxeN925JNAlvP nyYsVkQPj6H6VnOhp4INXzx AksGZ7f eQVbOJspBe8mlTnsdCcyYN3 zUCNwnoeep673EdGcc0tyFQ QnoEJiUMqyBMY1R24qw5G4E CMwMDAw XZK5eKN7yO9woNcgdqxhjZS mdDsgdmVydGljYWwtYWxpZ2 49RIVicAsmMmEzfYk1M6DqE xf0VBQx lNjxHV5wwUUkNZnbRj1hbFr zoEczYD9uBLPenkaes831Lt Jfk7oaIBKnaJXtQRtdXYV9Y 41bv4L6 CRRcCDVkPWN9gAL0zO7wmFs nbjogbGVmdDsgdmVydGljYW owEOslT433CFHduRbhQkUxx GllbnQg ULunHDx3U2RqWpilrKU+PC9 0AXQvQP42cNDvkCIej7awoG f5CwAdMFBrZLZ8kOphXDqfh 3JkZXIt Q52ceOXfx5S2ICDkjUszqJX hJeVicKT9oH9kMSorovnxc1 nckhjdOivph8eahq02eV31B 29sIHdp ZHRoPSIzMCUiIHZhbGlnbj0 atC6zYn5+BCZneCE1lNZ5lB 9qETYmXdD8IVusH692AkOch CIvPjxj w6daf5njwRv0WzP8OTKpcbA zmUanQBJ8h1IpYl99T16pSM dpZHRoPSIyMCUiIHZhbGlnb w8sfN8t Ii8+AMSqnLU4qIB8xE1fMyQ oLxP1OAcsH135UnQsgGBoMy vrO85qW6XfaNR+EPFaMsr1D CBzdHls SN8mhCEpZVgqEw2aSQU9NhG eSdBvSTvbL9TwLBBijsiglt znzMH7SHPhNFDtxE58Mu1iy DogMTBw dZISaF1jukmpk7vqkkkpZiF gVLXwYZa7IPz9BOOtpPamDo QgTFU1EzP9MKK8yAZigG9ok Glnbjog uK1nX6YzIIUcekinZg75iX2 vCkRtGlT0NNzjNyl+TUNDQU 5OLCBIRUFUSEVSIEVMSVpBQ kVUSDwv dGQ+TXHaEDD6nSkyRZuaLYT jlM8eOKPeL4d5BbCsUwA4YC xuM9ChTJMzwnovIk83fG2mX iAwLjA1 YVudI9YgzkZ1NCKztVDpSTt yPGN5K84pr4F0VEHpZRWlHN L6rYT8kG3arEuvewbcqOAih DsgdmVy nGahIPpnWFycW684MQHqwSx uKbMxTfQ0EwR7FNT7H7OzZy w3HDJneMlnRZ7stBZrJZgoT n6urRte rAktIO1cGTApqlgjWJPvaF6 rZIAslKXhgNafLR6cFAHavf hpd903BkNvPBR1XCWyzFLfF 8MdcA9h RtYpZGXsNKVpI2WotVOeWOr oP459WSflTlP4VJBljzEwZ0 PqUKIeuAlhEwN6v6B6Ra2pU SBZZWFy czwvdGQ+QHEePYW2nSqzOQi iPGZktM8mAMMqG6b9MuHdRi M4UXeyC5NlAUOlzlqxOl23s M2gMlSs PoM7QPisM1AibpK5FYAwgAK vVErcTYY2F06ym6E3TGKrGU EhMWK1fDC4eJ6uuMftpxtcp GVmdDsg vpDdkEugDMmgFMhkW782GRM vcDsnPkZFTUFMRTwvdGQ+PH AzXOD6zKieZJtdGWRefJ7eY PZdW2k9 QlXnTdZ2OLevG2SeMODeyay sGj38sD5qXrTqMeQ4NSjoG9 MpikI7GOQxcWDtUMepILX0P 40it6D5 NBWuWSWuDEM1gQI3eW8zwMl nbjogbGVmdDsgdmVydGljYW oiKWqkA959CQPolNjvPc6NQ U86WB61 R7WhGphjyNButSJ+PHRhYmx lIHdpZHRoPScxMDAlJyBzdH krKY9jNi9aZGVzAKTsyDzae HNlOiBj o3efIWViPLkaZM9fkQssM1W jkGW0UTAjn6b1Nm17K26kS3 JvdXA+HGNslGF3fUD0bQ4nD zAlIiB2 ISocR468InYrmDHwUdijc3p ej7vnbVo8HgKpVEWpljEcwE dvHQN7u6QvEg29N95yTFuqN HRoPSIy SRGsNBSexFarvt0ibI4nSk2 +JGBsqIZ9eFG3pA6oLdQrDz P5CAquE907WfJyvJKySutuU 17gY7Ke dXA+WPPcChd6EJKflIyeLH3 uxRZmOHssOn6dVIF7FsLuNv KqRDcaW4LlFGMikhrdfnvqa FI6XZGn ROBnbU31Rp0eoSmcUz4xHOF jDLC6GEUyhDUhY0OhjE1nJg DiKFHkKEPnE0RaeBLcWHzlL 246IGxl MwX5BPSmwuRkX6YqMBIqxHz lIlA1p9U2Oy3AsAmmkCIqHQ 2mLtGpWNi4F6RrUts8FNDvd WqnDO2b qJGaDOknKl7htHqwkXyxUM8 tKSMaqrisd302OrItl6ahFS CvkOYhBPhiWFQ6R90kn4Q5P CMwMDAw KAY6xHZ1oG6cmLfcbgiziIT mdDsgdmVydGljYWwtYWxpZ2 05FDUsdOffTaBQFna8J0BnN ia5XAOb xHccTO5zkWJwSVchLk9mmEs mwYgjCI1oENKhcrlgj214Hb Quw8kkBZSxmXWqUJecHCP6F 05wv8M1 FVFhIRTgBXW3qNV9jH2xvOd nbjogbGVmdDsgdmVydGljYW nxNOqeY926IPAdoGntPb8LF gx6Z2Ao Geo3CXVbeWkoPX3nfFHmFGn dPw6miUdcgCleTK6eATHoxk scq971AgRia3kkFRKggSXmS GltZXM7 I50sg0M8JCBqPOCvTQB4mYP 3eS4ulDueafvmlIGrqPeqgz FdoDfoGDdyURgxN896QWYwt DsnPlBh eWVyOjwvdGQ+CO47yd32V6J bLgydJzc5LPNgAQH4kTF4yG 5dXKNtXImgw8I2jDV3L8Ksn qYcwh6m b2x (more content not included)... [facility] Coding Summary HTMLBase 64 HypozpveBYv8eYi+PGhlYWQ +NA6BWNEfE77pyKKqgF1mW4 NMTElOSywgQVBQTElOSyIgb sDmGE9nlQFuPWAf IC8+RT6zIXEmQlhcoMQel6L 0eBC1T14npf0kABlacUN6KZ DiOuNtcmbbk2kpfPq9MZpsP mluOyBt RWUnpM55DEU8gM94Fo58aGY vtOQez5ccbZx6XqHwXJWfVN M6xJbkWOdft3HoKJEhZ43ti AMta3W1 NUEdbRyycVZlMxKnlUM8zF9 wUAvxqahaj4phqvtrNep3vo 21vSYyk2U4dTG2B4RkdwO2U GJvbGQg HsmcbFZRdS7mcystt5ntkaa rBiDxJOGrSVn2FQg4TEPyvH emRnMoMM93MFO3OBZkdsXmR 2FsLWFs bZhzGsD5y5R1Zi5EV9CNDdb mZ3LOEEAAQJadoUH+PC90cj 72F7SoQsmlPsd3MIIiPKU4t XO3lM2k QHEdADmaq0S7uJR2I9BaqxP quf7xs0yvCZHtSTolZ32jhM Cbb0Z1SAHntIG9IKOtaAclP iBzaG93 Oyc+RQMlhQrhj5ZaWnlej9y tk9gnnSa0GnbbVPMhcqIfgU tqSYA3y8NpFs7qWBEnkQL9t TE6vO8x OxOpDxF7GKevF173CoTohMH kZfknR35qF9OxgFI+PHRyPj k8GWWeaYwpGJ0oN6DbZMOho mctbGVm iJoiMW6hSUBfshrvQZTttZ3 hPGZgM3r3CrEcDgC4LBbnA1 RcHHGrbrjhFl76tJ2pCgNbW dG7ZVqs V4ZculS8CWQjfUGnSHsdKAF 1S88kp8Q5GHOjGYBvPCZ1cO M8lD4fwSdlfctanLTvgKkii mVydGlj FNgrIJrsM061GLMdjIttSrM vZGluZyBEYXRlOiAgMDUvMD UvMjAyNTwvdGQ+XQUzGWM6a WxlPSAn aEDcYDpaJa9fxFrjsEdbEW7 eXTXcajnwERJyjJ9rXMWyoZ XftYpvNS6fSXRajqmul298K iAxMHB0 DWRkuIMsM2ZpiN5dKsQuLWD vVJAbW3InaIZvAIeqC886UY nxXcQ7SCDsbcIjI9BhATPhk WduOiB0 t3Z7Fw1Wi6GdcyfeA7XfuDH rObHaNsbxBOl2U4GwShhvlG I+DR02QZRqXH29YWt3ZXO5w WxlPSdi XENrF6CdwU9cCqWzRMPvRIY kOyc+PHRhYmxlIHdpZHRoPS ldFEQgIyBvrKmtWC8iLo1kX GVyLWNv bOhwxNNzPeNfo0acEINhFUp oLY1bzOxyV4FbbZP6LHJbd8 t1Bt63H86sL5DrgKM+PGNvb GO3nZL6 iD6zMpBnIdK3FNxzR965XtV whGPeCpmsx1som3dzyQa1Zg E9BVOxskXqtFvqTVF5a5TmY u25N13f IHdpZHRoPSIxNSUiIHZhbGl fmw5qaH9nAn4+JVXvtIN5qU J6oW1sJvEcGnC0UPzqK538E nRvcCIv Todzm7mfd2agqOm2AiJdNOG pzbBweXflURV8t6EsFy94S5 SitTsxe1BsQeg4dh47sRLlv 2R8gHJ0 U6EwTOWmihwirQHjoKkjOW6 hZCEastrfHIPrqC0xWFTxZ3 i0FhCsKaU6YTmhH7HtndF6E GJvbGQg UVHmjEQSmY4rsafyg6dqlcx lWtUcGOZzXXp7EEk6PXAbfA oxRbKyGRE6DqU7AUJ8kVLqt V9uwPqo czohgK1cGji+VXO4fBTpdJV JJL9oLyaboPA+ECEjSMB8xI kbYUdhIHWugR1wGYZjT2h8L iAwLjA1 AWfvA7JhknR2QQOfrZFeIRR pjFROfL8ogiggm7pthoihJq GyJBGeBEe7GLh5WUXdlVjzC iBsZWZ0 IwB4ISD3uYUnwT7ouWkscdu mxQ5pRuv+KltqiKcmDRK1CQ p3D4ExCwu5KQMbiUjhAR1ym GFkZGlu Rg8urEcnzCddXV2tJMOnvmh pr005FxJfd8nbUFLnxPDfYE ypXLC4R25qy2B0HDTjEBNnP RR8sHC2 iX1rqSojqsqjxCXfwRfrfeR aiPhhBAmnDRncB769EMAtcA qjRtYrHUz2D4FvExk3NZZir GwmGL0y dONcUJrfZn2yfIdfiHokZV0 jIXPdwbhby443JwXca6gnOV TicTZuNHgoQQY5T50xw0Z4L CMwMDAw UOL4xZX0jZ4wgQxhbrbvoTA mdDsgdmVydGljYWwtYWxpZ2 69WYRosDlqEkDvoFb4F7TfY qw6VDXm sPchEC8ziNWwGGucBf3cuWv aiPhdNQ7fZECxbmpcf207Tm Nrt7wdMJRkqQCkWIneYQK7W 14gx6Z4 KBNhDYQhVCR8vNZ4aE5lcCn nbjogbGVmdDsgdmVydGljYW abAYgdG933AOEhzAaiYhCez GllbnQg EYfiWPc9J0RzLgctkGO+PC9 3QHHwJO87vZJyfXVgt9zgeS o1NbTlFDIlYCE9xLyeLMnow 3JkZXIt R29mxASac5Q9VDNwkZenvDH qFeNeeZC4dT6gUJhazstux7 lwtqkpPcjkx5qvvp60uI32Q 29sIHdp ZHRoPSIzMCUiIHZhbGlnbj0 tyF3pDy1+OKWjnYX3iFG0wB 9nYQLiXyL0XYsjN635UnAkh CIvPjxj q2jkh7funLp6AsD4QULgjzA unTceGBI6z6XzFs12L39qYF dpZHRoPSIyMCUiIHZhbGlnb p9wuM4e Ii8+YHUlvPI7aGZ6lX0oEiL rSgR4QCstG998EcSahGFuTb cjO22hE2WzcOP+JOMlNbk0M CBzdHls ON1keCTqADpfXo5nWBF8OgF wRhMqRUflY5QoVBArgycfus fsbYE0ESZyCQWpgO80Fk4gc DogMTBw aDFHuV4xffbsp7dechvjPzK mEUDtRHa8JRu2DEIpfJumXo CjOSL5RpG9JFH3iRXniB5gt Glnbjog qU5gK9QbIISekzzlQy44zM6 mQtLbEeY1KWcmHdt+TUNDQU 5OLCBIRUFUSEVSIEVMSVpBQ kVUSDwv dGQ+HQPcDUS7eHpgRHyyJYA qvD0fICQhX3j7GvShOmF1RQ btT0NcIRFeufrpRd27fQ5kX iAwLjA1 JEcvN3DeduT1CILuqAZqPIt lDOC8C30ij8G4YZDbHANoUK V9xMG7lE2omAlillsqvQRik DsgdmVy wKuuVVvxYGqsQ041UCQirHv jYbDyBaJ2FeF9AFG3D8OpLz i3RUDprGxqLH6nuOWgOKmdE t7pqEey gWxjBL2hQVQtvkmgNOSdmX9 fTMErySEklQvhDN4uXZViyd myi509CwJeLCF4LZTfsUZjP 6UueY4h CeQgRWKcTRVpG5DzcLGsOEx wN598CQuoSrE2PVElxgRqU4 CxSUDciKbmEhA5d6N0Qy2rY SBZZWFy czwvdGQ+IVNqLXE2cSqcFTe qGKEnmV4zASBdR4p7HaKmAu C1KQtjL9QoUEIejdfyQs30n P3yAuMt MwR2CIzoQ5RoigA3JAUzgDT xQBsyKOK3A59jc9R1CYAaLS WiSRS7wVM4wP0anCvzqobgm GVmdDsg csMokHbzQRnvXAoqR709GFF vcDsnPkZFTUFMRTwvdGQ+PH YdSGT3hDbfHVgeOBIkgF5oP HFrX6z4 OdAyUqB7OMmxK5TuWKCfteb aDh67nX4kCqDtBtI2DEhpA1 CabuV7PPScdWDzXTttIFQ7S 43jm6Y2 RWUiCAWlHKB8lQB1oM8fpRe nbjogbGVmdDsgdmVydGljYW hqLWaiB733YQYflPrzWn9ZB R10NJ05 Z0QzAojgtSUlqJY+PHRhYmx lIHdpZHRoPScxMDAlJyBzdH rqJJ4dEm2jNJPfKTGuiHvtc HNlOiBj k7ieGKCyBOkfHR9pvKujZ1S qbPO1QIOdb7n8Wc95E20qK4 JvdXA+LAPegNT9kXU9iH3xZ zAlIiB2 BKmaM553OgTgeNGbNdyrp9s eu8tnfNn7MzRrADNqljJkxJ usUNH7u0MmGw43R93aQMobJ HRoPSIy ZMOoBOFkbUflsb3opV6tGn8 +GLAitZR1bWN7hE5pGoKnUm I4OUrrE332XtGylMJeGhnbR 58eV2Rj dXA+ASJpIhv6TJRzsNeoXN7 hbFGlPXhaYh7tCZD4JgXsIn NiATutC7SsPIVrqjvbdgxyi SN1WNHp QIFilW77Tq5atKouCs3pNNB aYOU9JIGuhLZpM6DgxO4qIe McCTPzWVAhU7ZxuTMfTZtzX 246IGxl HmO9WYDpyaLwE2LxAWGmdJr qBzP1j6T3Qs3TlUtgbBHhIL 6vYbLsLYv7R5GeJwd6BIYgv KmkUE5j zZDwBWznXp3ckAugaGxkXR1 jZGFgyabez626KuTae8wwYX YwoSAtUUayHZU9S15gj8P1T CMwMDAw LYG3dAK5oJ8nzTvactusbPF mdDsgdmVydGljYWwtYWxpZ2 27POEzyCjxGuHQLvw9E0MlE ng8EBDq tEllYS0hrTZxLAtxBu8dhZf tyHdeCU9tKNHmhrnzo344Ry Wnj0agFZBqoRJvGEzyZWT2Q 64ol4U2 DQWpJNEdGDA5lUX1pX9seZi nbjogbGVmdDsgdmVydGljYW tmAPkyM964WHIucOfxCr5MR gy9V4Mw Mum4TKPloIllZC9kpZUxDZs oYs7pnKpkmDtfIV5lOIRkqj qaw706IcImz6eeULSnwCAvK GltZXM7 G53jl8P0TUOrLJNeQTU1mZZ 7wO7nhXbjycruuRPcuYyxfh IuzYdrAMbcFYenC865FIHwl DsnPlBh eWVyOjwvdGQ+HW27kq92H9Z yMlvuRkn9UKVuLZF7cSU3qZ 7nMRYnVZvmj1V9nOZ2A6Ocn fZmew6p b2x (more content not included)... [facility] Provider [place] 08-17-2024 Provider Orders [id number]#1.00O TGTIFF [facility] hCG Quantitativeon hCG Quantitative 362.7 mIU/mL High 0.0-0.6 [facility] Comment on above: Result Comment: Post -Menopausal Reference Range is: 0.1-11.6 mIU/mL Performed By: #### 7 [id number] #### [facility] (DEFAULT) [address] [place] [address] 08-16-[address] [facility] Telephone (REIBD) JAZ SANDERS ([id number]) 1995 F Date Time Provider Department 08/16/24 SHELLY HERNANDEZ During your visit today, we recorded the following information about you: Angella Mccarthy 08/16/2024 12:31 PM Signed Name: Jaz Sanders called today. : 1995 (home) [phone] (cell) Reason for call: pt called that she got positive test, she has been having having cramping since last night , it happens every hours for couple minutes. The patients preferred pharmacy has been captured for this encounter? yes Angella Morillo Doctor Of Dental Surgery Daniel Hanna APRN.JARROD 08/16/2024 5:28 PM Signed Called patient back to phone number listed in Psychiatric-no answer. Lm for patient to look out for [place] message. Daniel Hanna APRN.JARROD August 16, 2024 5:15 PM Allergies As of Date: 08/16/2024 (Not on File) Date Reviewed: 05/09/2024 Reviewed by: Shelly Hernandez APRN.CNP - Fully Assessed Reason for Visit: positive for [Other] Primary Visit Diagnosis: resulting from assisted reproductive technology in first trimester ([facility]) [O09.811] Prescriptions as of 08/16/2024 [...] Encounter Status:Closed by DANIEL HANNA on 08/16/24 [facility] Xavier 08-15-2024 [place] Telephone (REIBD) JAZ SANDERS ([id number]) 1995 F Date Time Provider Department 08/15/24 [...] Date Reviewed: 05/09/2024 Reviewed by: Shelly Hernandez, LABORATORY ANIMAL CARE VETERINARIAN.POLICE BOOKING OFFICER - Fully Assessed Reason for Visit: Patient [...] Encounter Status:Closed by SHELLY HERNANDEZ on 08/15/24 [facility] Provider [place] 08-15-2024 Provider Orders [id number]#1.00O TGTIFF [facility] hCG Quantitativeon hCG Quantitative 160.6 mIU/mL High 0.0-0.6 [facility] Comment on above: Result Comment: Post -Menopausal Reference Range is: 0.1-11.6 mIU/mL Performed By: #### 7 [id number] #### [facility] (DEFAULT) [address] [place] [address] [place] 08-13-2024 CNPN Telephone (REIBD) JAZ SANDERS ([id number]) 1995 F Date Time Provider Department 08/13/24 SHELLY HERNANDEZ During your visit today, we recorded the following information about you: Marianna Ward RN 08/13/2024 11:19 AM Signed Letters sent. sent to patient Marianna Ward RN August 13, 2024 11:19 AM Allergies As of Date: 08/13/2024 (Not on File) Date Reviewed: 05/09/2024 Reviewed by: Shelly Hernandez APRN.POLICE BOOKING OFFICER - Fully Assessed Reason for Visit: Wants hcg levels sent to [facility] / [place] far away [Other] Prescriptions [...] Status:Closed by MARIANNA WARD on 08/13/24 [facility] Provider [place] 08-13-2024 Provider Orders [id number]#1.00 OTGTIFF [facility] hCG Quantitativeon hCG Quantitative 63.6 mIU/mL High 0.0-0.6 [facility] Comment on above: Result Comment: Post -Menopausal Reference Range is: 0.1-11.6 mIU/mL Performed By: #### 7 [id number] #### [facility] (DEFAULT) [address] [place] [address] CNOVon 07-31-2024 CNOV Office Visit (REIBD) JAZ SANDERS ([id number]) 1995 F Date Time Provider Department 07/31/24 3:00 PM SHELLY HERNANDEZ REIBAri During your visit today, we recorded the following information about you: Last Period 07/19/24 Mustapha Tello MA 07/31/2024 3:12 PM Addendum Patient verified by full name and date of . Jaz Sanders is here today for an IUI. LMP: 07/19/2024 Natural cycle IUI Timed With: Ovulation Predictor Kit , Date: 07/30/2024 What Job Titles Mean offered: Patient declines Mustapha Tello MA July 31, 2024 3:12 PM Dominguez Barry 09/05/2024 10:45 PM Signed IUI specimen released to provider Dominguez Barry July 31, 2024 3:24 PM Dominguez Barry 09/05/2024 10:45 PM Signed IUI [facility] Donor # [id number] Pre: frozen washed specimen Post: 82 M/ml, 67% Insem # 27.5 Shelly Elizabeth APRN.CNP 09/05/2024 10:45 PM Signed WHI JAMEL IUI PROCEDURE NOTE Date: 07/31/2024 Primary Proceduralist: Shelly Hernandez APRN.CNP Consents and Labels Consent Signed: Informed Consent obtained and on the chart Labels Verified With Patient: Yes Indications: Jaz Sanders, is a 29 year old female here today for intrauterine insemination. IUI # 3. Cycle Day: Last menstrual period: 07/19/2024 [place] Protocol: UNIVERSAL PROTOCOL / SAFETY CHECKLIST Procedure [...] Encounter Status:Closed by SHELLY HERNANDEZ on 09/05/24 [facility] CNOV Office Visit (ANDRBE ) JAZ SANDERS ([id number]) 1995 F Date Time Provider Department 07/31/24 2:30 PM ANDROLOGY SERVICENOW ADMINISTRATOR DEVEL[facility] During your visit today, we recorded the following information about you: Dominguez Barry 07/31/2024 3:26 PM Signed Thaw for IUI. Dominguez Barry Referring Provider: SELF [[id number]] Allergies As of Date: 07/31/2024 (Not on File) Date Reviewed: 05/09/2024 Reviewed by: Shelly Hernandez APRN.POLICE BOOKING OFFICER - Fully Assessed Primary Visit Diagnosis:Procreative management [...] Encounter Status:[facility] DOMING[facility]Z [facility] Tele[facility] (REIBD) SANDERSJAZ ANDERSON ([id number]) 1995 F Date Time Provider Department 07/30/24 SHELLY HERNANDEZ REIBAri During your visit today, we recorded the following information about you: Charisse Ding 07/30/2024 3:16 PM Signed N- ivf Pt has questions regarding IUI Shelly Hernandez APRN.CNP 07/30/2024 6:00 PM Signed patient's OPK today was dark but not positive Plan: test again tomorrow. if darker, schedule IUI on Tuesday if recep than today, schedule IUI the same day [...] Encounter Status:Closed by SHELLY HERNANDEZ on 07/30/24 [facility] CNOVon 07-07-2024 CNOV Office Visit (REIBD) JAZ SANDERS ([id number]) 1995 F Date Time Provider Department 07/07/24 [...] Cycle Day: 14 Last menstrual period: 06/24/2024 [place] Protocol: UNIVERSAL PROTOCOL / SAFETY CHECKLIST Procedure [...] Gonzalez 07/19/2024 7:50 AM Signed IUI [facility] #[id number] Washed frozen specimen Post: 31 m/ml, 77% Insem#: 10.8 million Referring Provider: DANIEL HANNA [[id number]] Allergies As of Date: 07/07/2024 (Not on File) Date Reviewed: 05/09/2024 Reviewed by: Shelly Hernandez APRN.POLICE BOOKING OFFICER - Fully Assessed Primary Visit Diagnosis:Encounter for [...] Encounter Status:Closed by MIKEY HENLEY on 07/19/24 [facility] CNOV Office Visit (ANDRBE ) JAZ SANDERS ([id number]) 1995 F Date Time Provider Department 07/07/24 9:30 AM ANDROLOGY SERVICENOW ADMINISTRATOR [facility] During your visit today, we recorded the following information about you: Nichelle Gonzalez 07/07/2024 9:41 AM Signed Thaw for IUI Nichelle Gonzalez Referring Provider: DANIEL HANNA [[id number]] Allergies As of Date: 07/07/2024 (Not on File) Date Reviewed: 05/09/2024 Reviewed by: Shelly Hernandez APRN.POLICE BOOKING OFFICER - Fully Assessed Primary Visit Diagnosis:Procreative management [...] Encounter Status:Closed by NICHELLE GONZALEZ on 07/07/24 [facility] 07-06-2024 [facility] Telephone (REIBD) JAZ SANDERS ([id number]) 1995 F Date Time Provider Department 07/06/24 [...] Date Reviewed: 05/09/2024 Reviewed by: Shelly Hernandez APRN.POLICE BOOKING OFFICER - Fully Assessed Reason for Visit: Patient [...] Encounter Status:Closed by BECKI ISAACS [facility]06[facility] Telephone (REIBD) JAZ SANDERS ([id number]) 1995 F Date Time Provider Department 07/05/24 [...] Date Reviewed: 05/09/2024 Reviewed by: Shelly Hernandez APRN.POLICE BOOKING OFFICER - Fully Assessed Reason for Visit: re [...] Encounter Status:Closed by MARIANNA WARD on 07/06/24 [facility] 07-04-2024 [facility] Telephone (REIBD) JAZ SANDERS ([id number]) 1995 F Date Time Provider Department 07/04/24 SHELLY HERNANDEZ REIBD During your visit today, we recorded the following information about you: Shelly Hernandez, MELY.POLICE BOOKING OFFICER 07/04/2024 7:30 PM Signed Spoke with Jaz [...] need to be removed. She will need [facility] guidance for her next IUI. Dr. Duran [...] Status:Closed by SHELLY HERNANDEZ on 07/04/24 [facility] 07-04-2024 Indication infertility testing [...] Read By: Ignacio Guy M.D. MATERNAL MEDICINE [facility] Radiology Study observation (narrative) [facility] [place] 06-29-[address] [facility] Telephone (REIBD) JAZ SANDERS ([id number]) 1995 F Date Time Provider Department 06/29/24 [...] Hernandez APRN.CNP July 03, 2024 12:33 PM Patricia Snow [...] Encounter Status:Closed by MARIANNA WARD on 08/13/24 [facility] CNOVon 06-09-2024 CNOV Office Visit (REIBD) JAZ SNADERS ([id number]) 1995 F Date Time Provider Department 06/09/24 11:00 AM IGNACIO GUY During your visit today, we recorded the following information about you: Nichelle Gonzalez 06/09/2024 12:30 PM Signed IUI specimen released to provider Nichelle Gonzalez June 09, 2024 11:24 AM Nichelle Gonzalez 06/09/2024 12:30 PM Signed IUI [facility] #: [id number] Washed frozen sample Post: 42 m/ml, 74% [...] Cycle Day: 13 Last menstrual period: 05/28/2024 [place] Protocol: UNIVERSAL PROTOCOL / SAFETY CHECKLIST Procedure [...] was discussed with the patient or authorized retail service representative. The patient or authorized retail service representative has agreed to proceed with the sensitive examination. (Sensitive examination includes inspection and/or palpation of the breasts, pelvis, prostate and anorectal regions) Patient declined aircraft cleaning supervisor. Vidhi Sheldon MD IUI IUI Date: 06/09/24 [...] stopped. Will get pelivc scan here at [facility] if not with this IUI prior pt proceeding with another attmept at IUI. Ignacio Guy MD June 09, 2024 12:30 PM SIGNATURE: Vidhi Sheldon MD PATIENT NAME: Jaz Sanders DATE: June 09, 2024 TIME: 12:01 PM Referring Provider: DANIEL HANNA [[id number]] Allergies As of Date: 06/09/2024 (Not on File) Date Reviewed: 05/09/2024 Reviewed by: Shelly Hernandez APRN.POLICE BOOKING OFFICER - Fully Assessed Primary Visit Diagnosis:Female infertility [...] Encounter Status:Closed by IGNACIO GUY on 06/09/24 [facility] Office Visit (ANDRBE ) JAZ SANDERS ([id number]) 1995 F Date Time Provider Department 06/09/24 10:30 AM ANDROLOGY SERVICENOW ADMINISTRATOR [employer]EL[employer] [facility] During your visit today, we recorded the following information about you: Nichelle Gonzalez 06/09/2024 11:48 AM Signed Thaw for IUI Nichelle Gonzalez Referring Provider: DANIEL HANNA [[id number]] Allergies As of Date: 06/09/2024 (Not on File) Date Reviewed: 05/09/2024 Reviewed by: Shelly Hernandez APRN.POLICE BOOKING OFFICER - Fully Assessed Primary Visit Diagnosis:Procreative management [...] Encounter Status:Closed by NICHELLE GONZALEZ on 06/09/24 [facility] Coding Summaryon 05-24-2024 Coding Summary HTMLBase 64 XjacjylvEQo8jJx+PGhlYWQ +AN2RMWBeL13owCQscA3zH0 NMTElOSywgQVBQTElOSyIgb iLuGF9ptIEgNUQm IC8+PO5uRVSvTxphxPEtm6E 2xUX0I95cof1uFZuzdOM8JX YyHmBhodmiz7tqwHz0FVhsF mluOyBt STRexE30KRH3dR29Ah17cSY pkZHzx3bbrJd2BbJdLTWoFB O1tCtpUJyyt3JkRBEyZ59ee RAee1F4 ICZyhYxbtSZuIjHesMH5mW3 hCEjlmilcn5osbdmvBva4or 46aZMsu0I7aJE8Q4VhhzD1R GJvbGQg XwuwhSGFyO6yhmogi4obonn zByXoRZYvDNz1JLg4ZRSkvC vkBxOkIP71KEI3QZDbuyHdI 2FsLWFs bGkdRvL1y4R5Nd8TG2JBCwh fM0YGARLESOqsbBA+PC90cj 74N6DnAhhwZlg1WADxJIR1y OT5mU4p HCJhZCvkv9T7dNM8I1BfgbK nkj2fn1ptTLBdWDndS04fnK Exs2S3BRXojXN6QTGtkQiuV iBzaG93 Oyc+ONLtqPhqb3JdSyqzx6p yn3likLn2SqjqRTUeueHbfI pkPUM0a6MlTf9oMXBlpAM4g WT4jN2h WuYxScU4NLzgB067MzEdiQI fWvleZ12jS3BtkVU+PHRyPj x3OTHgjHpgBD7cN6GvAQElz mctbGVm iPxtNS5uPZGaxyqbMIVjvJ5 bMPVdC1w9EqQoObN3MTvxQ2 ByMRLmddotLa25zJ0lShZzA yC7DBfs C0UdrlQ8WQLglBMuKYsiAKZ 2E57lw0Z5DXYmTCIpGTD9hI L6kT6npWfjhdebeCRoyFuni mVydGlj VQryVAkmJ047JVQwoRbnYgS vZGluZyBEYXRlOiAgMDIvMD YvMjAyNTwvdGQ+LBWbPFV1z WxlPSAn eVLwPSkxZi2slDhzxNdwYC5 lCLSgprylPFEsyX9jBPJohD ShmBigAX6rCXWqbacip919D iAxMHB0 IKNznNEwG2KjlU1bAfLtVLP eFTSuF6FqgCKzKYtoB260LL pjOmY4MEWyvmQcJ9MiUJFqy WduOiB0 t2Z9By5Ru1TcrtwcZ0QbuVA cKqIfRicuEPa3J8FpRmbptH I+OL47ITJeGV68WRv1GBC8t WxlPSdi JEBsF7JufJ4qXtMkJGLaEUV kOyc+PHRhYmxlIHdpZHRoPS oiBYOwKgLmcWyxBT5bQu0xP GVyLWNv qUrqsNYcSgMrr4esZJVvMMx dCF2xuArxX7LyrWI7TESey7 q4Fy37M33tD1IdsDY+PGNvb IC8rKP4 xN8gNcVhAhR0RTesM395TfL avZLuMcgam2vuj6uxzWh3Ua M4AWPmuxTqtPaiRTE6m7VzM a46K02r IHdpZHRoPSIxNSUiIHZhbGl lzl1jjQ6kCn1+FZGjoWS6uT I6lB8xWmCoHtT4WRdiC109V nRvcCIv Lyhpc5fvn7xouRs9OyJkZNA xuhQzzPamYGM2o1GuUb73M6 HanVvcq7WxEha9cf43lGGwx 1N9nIU5 L0HmHUArtlnnrTJqyYgvXG1 lOQHltvttYBIqaK0kBWHtT9 d5HiXxUgJ6PCxfI7TmalB1W GJvbGQg EYPcxHTZfY3jglipo4zujuq iMhUqQKClAYe9BMo7DVNluH kyLtStPBP1GiY4FJO6qYGfr U2yjEdn euqmlW0fFcb+GBC0iGEzgUO IRD0tGeuzdVK+LDCuMTB2pG hxNGwaIEJbnN7hIAMbY8a3I iAwLjA1 MSexF4KxvkE7NYKkvLJfDVB ywLZFpR5hxfnqr2uidzgqYq HtFLHbPOh1YAk4DVZkvAnrD iBsZWZ0 BuP1FPP0pYYnhC0mhGwglfr fbU8aPce+UmgweThcZLJ0TJ k7D2SdQqf5UYHljUbnJG4di GFkZGlu Od9qcZrrjLunYM8dWJIsuun nd000QlJxf7geOKCjbILfJS uaENJ2A41wc5F9MHBwDURoE ON9aRJ2 lI3bjJimvegetPYwiIeifxD ybYwySFqdMOgoK663SSJztD jhQoEfSHa3E8PzPud6RHUvm TdyCR8o qQDrHBzwOl1gtJoiaBnaEO5 wOEUdeyfzp024LkJty9bqCM AlzKQdDSoeOUN1D55gy7W2X CMwMDAw MWL8iDG2pX8jhBxbzmuhxOR mdDsgdmVydGljYWwtYWxpZ2 00CNBlzPiqOpRosMl3Q5VuO if0JBNl dRvkYD5ypCEfVAftLr6iiDx scBnpWP4pSFUaauorm209Rm Pzd7ctTDVtmPBmNNtyOLH6M 86jz2I3 PVHeDVQuSAJ8iWC6cQ1llCg nbjogbGVmdDsgdmVydGljYW alPLoaB761JLChjAcuSlKwn GllbnQg ZWtfUOr3X6OgQqfmxSD+PC9 4UGMxMW35nGOcrERvl8wazE y5PmVbRCBuEEY4bAkjJZmzv 3JkZXIt C72xtOFbw1F2HWUcpRaleUG eFhQnvIZ3yP7kWTefdwtkp0 tqzvelJyezk4teby87gF42B 29sIHdp ZHRoPSIzMCUiIHZhbGlnbj0 wdY8yIr2+OOUwgLL0lON0fJ 6qEXGgFkD7VHmeD818YzPjk CIvPjxj j8qxr7ltnYc1LmA2PUKavvZ fqSqcYBC5t4ViQz02Y36hCH dpZHRoPSIyMCUiIHZhbGlnb l8fpP6d Ii8+OPWkqRO3qWF8pI1nWuE rFgQ3XJfuV890XuWdrPLcSr frX00aA1OaiKM+SZZtFqf4Q CBzdHls FN4hnOMjQQwyYz8mFUF0IaV yJgDnKOhpP3QhBCPcipmnvn vviAG5HFHvLYOplZ40Xk0ck DogMTBw tFXIaG6nxyiih0vrwydaLxW uONKwWGg3VZr6TNFxbNpsAn ZhDFH3RrQ3LNR6oHGnsL9zb Glnbjog mT6kR8EwGDAlnepiLk98sE4 rKxCuDvZ7ZFdtBsn+TUNDQU 5OLCBIRUFUSEVSIEVMSVpBQ kVUSDwv dGQ+QXYeVHN0wDzcTLytLCT mgJ8xXAGfR6s7CcDaTsR3UI wtP5PsLGTpuehhLh01xQ5zJ iAwLjA1 KApxF7TjntQ0BILpvSRbDTg sXMC6S66ff7M6OVKaRHJeTD C1xVI0yE7ouYucruyliWIaf DsgdmVy mXgbJRyqCWybJ653ZBVjmYb uLbImTdQ2NeR2BUN5Z4TtXt n9IXPkvDkgPU2qoKZtUOvzI y8rbSpn bKhrJF8gKHXzdszzRSZlbB3 hISQabKDqnYanKM3fTDVryp zkb251UoSsSOM5MLAjoJUjA 6RiyY0i DhWvOOQxSCLaL4MlkCBxHQy zP834BJcoTkK3QUItqzXxP9 CtEZDzjGnsCjS8s5K2Wr6gC SBZZWFy czwvdGQ+VYGuFJH8qApyDQh aACGpbA6tXKPjS8q4VmXcUc D6XXwxQ8RiMZQsxkytVt51l K2sPwQb YfL1BIncA2GemmD7KSUkzZL oPUyzSIC9H89ad2K4LWWgLW TsGNE2yIW6nM6bdCwbiauyi GVmdDsg jzZvfJwtVXvsQRmuN369IEP vcDsnPkZFTUFMRTwvdGQ+PH AwIFR0kUniXJwtIPMxaT3jL NQvY1f8 TiShAsS4ZGtvD9TsPJJpnoa iAq73uW7oMpLvUbX1DCtpD2 WrlsS9VMHyoPHzQDduFSU2V 19mi5C3 PIVuEPDrJEX0pAQ4sJ2fuDt nbjogbGVmdDsgdmVydGljYW kuKWhtO074FJSwwGhyIo5VM E47BZ37 J0SvHwvdaJYtuPE+PHRhYmx lIHdpZHRoPScxMDAlJyBzdH miYB8uSh4mTVRdUKMejFlvg HNlOiBj a5rsFYIlQRysJY1fwQmaK8R bkJS3HHJuh6u5Cp76F24yC6 JvdXA+EATlpQV2kUL5yC9jA zAlIiB2 QXqkG007MsCpbGUkThydy1r dg8qexUq3KsGwIDIayoGleC hjOCX1m5DwJq68U89qATykQ HRoPSIy ETPdGMEajQiacj7blJ5oKn3 +BCUkgNV8pXM6mL1hKkZhYf C6NLicC690NbPzhEQxNnpaL 13hP3Ud dXA+YHFdCzf3JFVltVecRC5 kxNJuYKtlHm4uEEZ0LkUtXk CjTPrvV7CvCWBwdxyvuhtxf BE4LUQw XDVqcU85Hj8maUmtCo7wNNF aZQS7QMDaxMIdA4HwnX8fEk EfKGIuOPAeD6VerSRhKZzjB 246IGxl TnS9DAXqelUiF7IbIGPxjHt sKaQ0z0V5Ba2WpCotnINxFU 9fMiKuGOh2J2ZeLte6QDCsi RsgTI9s vMHaUNomKu0vfMgfmUazPL2 rKWOhkitop343TzWlu9jqVS ZccFYmKAmdNWX5F33ai6B7I CMwMDAw DBS3kHM1sX9rhYmvsgmxcWQ mdDsgdmVydGljYWwtYWxpZ2 85XRLeySrkCkNCNbu1Z9BlL ad3LTCp qTotXP2yhLHeWAneNu1fjNp wwVisHU4cZGRushrty037Rj Ger2mcNRQgzVCtQTelYHL9G 96oj7Y2 KEToWKCiVAJ1fLP5xZ2bxXu nbjogbGVmdDsgdmVydGljYW pgRSflS087ZYWtnNmhFt9LJ pk2O6Jt Qtz0BLMouQwgMQ7tkDOwJWz nYv1czSidpRmvON4rTPUutz vja411GjAnk2byVGPyjJNbV GltZXM7 F95ry6S5PNRjVBUeNHZ3nFJ 7lD2aiVytdyiorLOuiTvpiz CmlEuwQYdgKKggI321ZBRwt DsnPlBh eWVyOjwvdGQ+EL39cf08S7F rHxehHxw8GGJuKSZ7oXW4uE 9cRZScNJfyp9Z7gNU0A7Fps gAxxf5s b2x (more content not included)... [facility] Progesterone LCon 05-22-2024 Progesterone LC 7.6 ng/mL Invalid Interpretation Code [facility] Comment on above: Result Comment: Foll icular phase 0.1 - 0.9 Luteal phase 1.8 - 23.9 Ovulation phase 0.1 - 12.0 First trimester 11.0 - 44.3 Second trimester 25.4 - 83.3 Third trimester 58.7 - 214.0 Postmenopausal 0.0 - 0.1 Performed At: [address] [id number] J Luis Gray PhD Ph:[phone] Performed By: #### 3 [id number] ####[facility] (DEFAULT)[address] [place] [address] Provider Orderson 05-21-2024 Provider Orders [id number]#1.00 OTGTIFF [facility] Physical Therapy Noteon 04-20 Physical Therapy Note [id number]#1.00O TGTIFF Normal [facility] 25(OH)D3 SerPl-ncon 2023 25-hydroxyvitamin D3 [Mass/Vol] 28.8 ng/mL Low 31.0-80.0 [facility] Comment on above: Order Comment: Speci men Type: BLOOD SPECIMEN Ordering Facility: [facility] Address: [address] [place] [address] Result Comment: Clas sification of 25 [place] Vitamin D status: Deficiency/Insufficiency: < or = 30 ng/ml. Sufficiency/Optimal Levels: 31-80 ng/mL Toxicity: > 100 ng/mL. Test performed by chemiluminescent immunoassay. Performed By: #### 5 5454-3 #### [facility] CLIA [id number] [address] [place] [address] [place] C. trachomatis+N. gonorrhoea e DNA AC+probe Ql (Unsp spec)on 04-02-2024 C. trachomatis rRNA AC+probe Ql (Unsp spec) Not detected Normal Not detected [facility] Comment on above: Order Comment: Speci men Type: BLOOD SPECIMEN Ordering Facility: [facility] Address: [address] [place] [address] Performed By: #### 5 5454-3 #### [facility] CLIA [id number] [address] [place] [address] [place] N. gonorrhoeae rRNA AC+probe Ql (Unsp spec) Not detected Normal Not detected [facility] Comment on above: Order Comment: Speci men Type: BLOOD SPECIMEN Ordering Facility: [facility] Address: [address] [place] [address] Performed By: #### 5 5454-3 #### [facility] CLIA [id number] [address] [place] [address] [place] CARRIER SCREEN, EXPANDEDon 1 06-03-2023 CARRIER SCREEN RESULTS View results in S canned Documents link when available. Normal [facility] Comment on above: Order Comment: Speci men Type: BLOOD SPECIMEN Ordering Facility: [facility] Address: [address] [place] [address] Performed By: #### 5 5454-3 #### [facility] CLIA [id number] [address] [place] [address] [place] CMV IgG Qnon 04-02-2024 CMV IGG QUAL Negative Normal Negative [facility] Comment on above: Order Comment: Speci men Type: BLOOD SPECIMEN Ordering Facility: [facility] Address: [address] [place] [address] Result Comment: No s erological evidence of past exposure to Cytomegalovirus. Cannot exclude recent infection if the specimen collected within 4-6 weeks after infection. Performed By: #### 1 989-3, RIO, 7852-7, 7853-5, VZVG2 #### [facility] CLIA [id number] [address] [place] [address] [place] CMV IgG SerPl-aCncon 024 CMV IgG Qn <0.20 Normal [facility] Comment on above: Order Comment: [facility] Type: BLOOD SPECIMEN Ordering Facility: [facility] Address: [address] [place] [address] Result Comment: The magnitude of the measured result is not indicative of the amount of antibody present. U/mL values are interpreted as follows: Negative <0.6 Equivocal 0.6 to <0.70 Positive >=0.70 Performed By: #### 1 989-3, RIO, 7852-7, 7853-5, VZVG2 #### [facility] CLIA [id number] [address] [place] [address] [place] CMV IgM Qnon 04-02-2024 CMV IGM, QUAL Negative Normal Negative [facility] Comment on above: Order Comment: Speci men Type: BLOOD SPECIMEN Ordering Facility: [facility] Address: [address] [place] [address] Result Comment: No s erological evidence of recent exposure to Cytomegalovirus. Performed By: #### 1 989-3, RIO, 7852-7, 7853-5, VZVG2 #### [facility] CLIA [id number] [address] [place] [address] [place] HBV core Ab Ser Qlon 024 HBV core Ab Ql (S) Negative Normal Negative [facility] Comment on above: Order Comment: Speci men Type: BLOOD SPECIMEN Ordering Facility: [facility] Address: [address] [place] [address] Result Comment: No e vidence of current or past infection with Hepatitis B virus. Should recent infection be suspected, repeat testing may be considered 3-4 weeks after this draw. Performed By: #### 1 6933-4, 5195-3, 33891-6, 29954-4 #### [facility] CLIA [id number] [address] [place] [address] [place] HBV surface Ag Ser Qlon 03-18 HBV surface Ag Ql (S) Negative Normal Negative [facility] Comment on above: Order Comment: Speci men Type: BLOOD SPECIMEN Ordering Facility: [facility] Address: [address] [place] [address] Performed By: #### 1 6933-4, 5195-3, 70076-1, 00916-3 #### [facility] CLIA [id number] [address] [place] [address] [place] HCV Ab Ser Qlon 04-02-2024 HCV Ab Ql (S) Negative Normal Negative [facility] Comment on above: Order Comment: Speci men Type: BLOOD SPECIMEN Ordering Facility: [facility] Address: [address] [place] [address] Result Comment: The result suggests no evidence of active infection with Hepatitis C virus. Should recent infection be suspected, repeat testing may be considered 4-6 weeks after this draw. Performed By: #### 1 6128-1 #### [facility] CLIA [id number] [address] [place] [address] [place] HIV 1+2 Ab IA Qlon HIV 1 and 2 Ab IA.rapid Nom (S/P/Bld) Normal [facility] Comment on above: Order Comment: Speci men Type: BLOOD SPECIMEN Ordering Facility: [facility] Address: [address] [place] [address] Result Comment: Test not indicated. Performed By: #### 1 6933-4, 5195-3, 14184-0, 40599-0 #### [facility] CLIA [id number] [address] [place] [address] [place] HIV 1+2 Ab+HIV1 p24 Ag IA Ql Non-Reactive Normal Nonreactive [facility] Comment on above: Order Comment: Speci men Type: BLOOD SPECIMEN Ordering Facility: [facility] Address: [address] [place] [address] Performed By: #### 1 6933-4, 5195-3, 85412-7, 27513-7 #### [facility] CLIA [id number] [address] [place] [address] [place] HIV immunoassay testing algorithm interpretation (S/P/Bld) [Interp] Normal [facility] Comment on above: Order Comment: Speci men Type: BLOOD SPECIMEN Ordering Facility: [facility] Address: [address] [place] [address] Result Comment: No e vidence of HIV-1 or HIV-2 infection. Should recent infection be suspected, repeat testing may be considered 2-3 weeks after this draw. [place] Rev. Code 3701.243(E): This information has been [...] diagnoses. Performed By: #### 1 6933-4, 5195-3, 50274-2, 54910-9 #### [facility] CLIA [id number] [address] [place] [address] [place] HbA1c (Bld)on 04-02-2024 Average glucose Estimated from glycated hemoglobin (Bld) [Mass/Vol] 85 mg/dL Normal [facility] Comment on above: Order Comment: Linden negrete Type: BLOOD SPECIMEN Ordering Facility: [facility] Address: [address] [place] [address] Result Comment: eAG: (Estimated average glucose) is a calculated value from HgbA1c and is retail service representative of the average blood glucose level in the last 2-3 month period. Performed By: #### 5 5454-3 #### [facility] CLIA [id number] [address] [place] [address] [place] HbA1c (Bld) [Mass fraction] 4.6 % Normal 4.3-5.6 [facility] Comment on above: Order Comment: Linden negrete Type: BLOOD SPECIMEN Ordering Facility: [facility] Address: [address] [place] [address] Result Comment: [place] Diabetes Association guidelines indicate that patients with HgbA1c in the range 5.7-6.4% are at increased risk for development of diabetes, and intervention by lifestyle modification may be beneficial. HgbA1c greater or equal to 6.5% is considered diagnostic of diabetes. Performed By: #### 5 5454-3 #### [facility] CLIA [id number] [address] [place] [address] [place] RUBELLA IGG ANTIBODYon 04-02 RUBELLA IGG AB, QUAL Positive Normal Positive [facility] Comment on above: Order Comment: Linden negrete Type: BLOOD SPECIMEN Ordering Facility: [facility] Address: [address] [place] [address] Result Comment: The result suggests recent or past exposure to Rubella virus or history of Rubella vaccination. Positive result may also be seen due to presence of passively-transferred antibodies. Please correlate with patient's history. Performed By: #### 1 989-3, RUBIGG, 7852-7, 7853-5, VZVG2 #### [facility] CLIA [id number] [address] [place] [address] [place] Reagin and Treponema pallidu m IgG and IgM [Interp]on 04-02-2024 T. pallidum IgG+IgM IA Ql (S) Non-Reactive Normal Nonreactive [facility] Comment on above: Order Comment: Speci men Type: BLOOD SPECIMEN Ordering Facility: [facility] Address: [address] [place] [address] Performed By: #### 1 6933-4, 5195-3, 04394-1, 42709-3 #### [facility] CLIA [id number] [address] [place] [address] [place] Reagin+T pallidum IgG+IgM Se rPl-Impon 04-02-2024 Reagin and Treponema pallidum IgG and IgM [Interp] Cannot exclude recent Treponemal infection if specimen collected within 7-10 days after appearance of suspect lesions or 2-3 weeks after an exposure. Clinical correlation is required. Normal [facility] Comment on above: Order Comment: Speci men Type: BLOOD SPECIMEN Ordering Facility: [facility] Address: [address] [place] [address] Performed By: #### 1 6933-4, 5195-3, 33051-9, 62780-0 #### [facility] CLIA [id number] [address] [place] [address] [place] TYPE + SCREEN PRENATALon ABO A Normal [facility] Comment on above: Order Comment: Speci men Type: BLOOD SPECIMEN Ordering Facility: [facility] Address: [address] [place] [address] Performed By: #### T SPN #### [facility] CLIA [id number] [address] [place] [address] [place] Rh Nom (Bld) Positive Normal [facility] Comment on above: Order Comment: Speci men Type: BLOOD SPECIMEN Ordering Facility: [facility] Address: [address] [place] [address] Performed By: #### T SPN #### [facility] CLIA [id number] [address] [place] [address] [place] TYPE AND SCREEN EXPIRATION 04/05/2024 23:59 Normal [facility] Comment on above: Order Comment: Speci men Type: BLOOD SPECIMEN Ordering Facility: [facility] Address: [address] [place] [address] Performed By: #### T SPN #### [facility] CLIA [id number] [address] [place] [id number] [facility] [place] VARICELLA ZOSTER IGGon 04-02 VARICELLA ZOSTER IGG, QUAL Positive Normal Positive [facility] Comment on above: Order Comment: Speci men Type: BLOOD SPECIMEN Ordering Facility: [facility] Address: [address] [place] [address] Result Comment: The result suggests recent or past exposure to Varicella-Zoster virus or chickenpox vaccination or zoster vaccination. Positive result may also be seen due to presence of passively-transferred antibodies. Please correlate with patient's history. Performed By: #### 5 5454-3 #### [facility] CLIA [id number] [address] [place], [place] [address] [address] [place] Coding Summaryon 03-20-2024 Coding Summary HTMLBase 64 XsszljdoLAc2zYf+PGhlYWQ +IK6WCEYtL17qqAEriF6rU5 NMTElOSywgQVBQTElOSyIgb rDxRU2dtXJgBEKi IC8+PC7lAEUlTzdpcASty7N 6yFM2Z35gpz3mVTvziZN6RA EzKdCmsjhyr0ibrZq1XObgY mluOyBt ZCZtcR74WDT5dC84Ch10cIT ovXCja7dpgYe8RxWjFUVuTD E7tOanANhwo7GcVZXkS81vc UEsw7B6 RFJsrVfenBUaKwDowAJ9jJ1 tLGbsurxud2ajdazoXqr6zl 69pZDho4W7eKQ1L6IlkzR2I GJvbGQg WjafrWSWjR5lrfkax0hufno iZqQzPRAjBHr7LBb3TXEidT rtRyTmLM55PPU9EWSpqxTqL 2FsLWFs lMxpKzZ5f0P6Oi5VU4TOWrk wD6TSNSSLWVhbuIB+PC90cj 24X1OiBwdlTec4MEJcLDH2w MC4vG5p PXHqZSxlp2M9yPI4P1UmgcV zad5ut0muQPUrKLbdG23kiW Yha1K1FFIynXB2UEPygGnrJ iBzaG93 Oyc+RRMqwQaam6EeWmhxf6e bd7wgwUl7CjilSUCnluWqdO jtJEU7h3TnPl7qLJCmjWX9j QW9sD0k KnItMeO0MTcyO944WmWuvNF pOeshJ28pM7PbxQU+PHRyPj f7RDTpvPbnPR3hV4RbXNOnf mctbGVm uAnnHF0jBCRteowvOWAzoH2 fKQPuW3n2WePaCqN5HOhcS4 VuYPLeemacIt24jA5dKfTbJ wF1AYtk C8RjpwG8ENKxaDVvYVbsFYB 7F76nm3E2SEJnNRWdIFB1pL J8bU9lqMdaxaincDFzfXjqv mVydGlj NIisGWoeB113HSIulTccHaR vZGluZyBEYXRlOiAgMTIvMD MvMjAyNDwvdGQ+PYPkFKH3b WxlPSAn nVTbNOhyJl8mzSmptWryYT9 bXCTnuifxPYBsxU8jJTDpvT IbgOweVX0zSXQofrkoi501X iAxMHB0 RYFkxFBmC3MiaO2xLlPmNOO bGHOpG9YstTGlQPxfU351UK sjPiI4NDDisrJtW8OoBTMoj WduOiB0 c0W7Ay1Jd5SeyvcfQ2DmrHV iQqKySphtGMb6K2WwByzgiG I+GK97WVJpFR04ZUk5ZLR4u WxlPSdi AIDmW6EhaZ0kXgNiNCAxYUR kOyc+PHRhYmxlIHdpZHRoPS qrOKSlIpHnrWmnYH3qWn1tB GVyLWNv cUoadUGkTrQry4sqDQEpQGz gQG2bnOtaI9JwqZN8UBEut8 q1Tb87C40mB4HqiOY+PGNvb MS2pDB8 yH4lJmJgFkM7NPkxI626HhG ecNOxZhuxx5mhl6hzdYs1Ch M6VTBtgrFqvHcwQRO7x5FsD q16C73q IHdpZHRoPSIxNSUiIHZhbGl yfo0xsB6nTb4+FQZngRP1fB U0dQ1yDlEaIbY1BEzlV937R nRvcCIv Vaije4ylv3jccBx0DyBuSKC eefHwpXixGZZ2a8ZdXv64M3 MzlJbmy2ZyFqp1jg22pIZqz 3L9iFG2 G1CbNGCsrzpeqWOmrTfwOH4 rFAFjmrljIGWmqO9oJWWrK7 r5DrZnWaE2TPduU0LhspR2H GJvbGQg DZJecVIHbA9haezhh4ebpna dQlVsHWSeHJp4YGq7IUSzsZ blPlHgVPF6VuU7REK2jWUbe R5pnBig nyevoG4fKie+OYV0iHYotTX JJP1rXmeihGV+BXDgWAL5oJ ufQHymGUNppW7cVCBpV2s0F iAwLjA1 CJspX1OhfjZ3DEEulCIcHOJ ycIFHkN8daljrw6gtpcmmSp RfKWVcLWr4SFc0GSQpiXbmY iBsZWZ0 MvI4OIN1pACmwD1vuVhxeaf roI7eChg+RdxytZwoOTZ3DZ g0L7DcGdn5FHBheUgtEM3tg GFkZGlu Dx7trBhwsEmtHY2vVFTlgga zi079WlNcp2bnFRPatBPmEG teNFN0B10xt2L9SXTbNISkY RD1lZQ0 jR2txTvorfdmdDDjoSjevgM hoIisSLynKBxyH295EICjiM yrXiSoMXe8C1AyKku9ANFhe BzbFG8s jUBvQPubBl2lvIfqtTnoHY7 lHNOdldwye493NjIfq4sxXC KrwPKaKYygNCY3F90yb5V8Q CMwMDAw XHT8xEK8jQ6fgCqzgwrrmLL mdDsgdmVydGljYWwtYWxpZ2 76UNParXmtZsUafEk8Z9NqS xs7SEFr aZqpPS8tpISqLAnqLd3czTi ivUzgBI2aPVVthiheh906Zh Nzd6zhDSXcnSDbAMebBMV6J 12mk5E8 PKVrSSAoLYF5aRS8yI5xoCo nbjogbGVmdDsgdmVydGljYW yzBFagN618WODdhHrvVnJrj GllbnQg PBdpQNf0G4RmYelfzMX+PC9 0MMImQJ74gBYuyDXsf9nykC b5KpBdEMVvXSM3hBheKBgof 3JkZXIt H78fwEZli3W3VILktMnjcTF wHsYifVG4nM3tHVkvsjyzy0 tkqzabEoxon6wdrd49lP83K 29sIHdp ZHRoPSIzMCUiIHZhbGlnbj0 jeR9aNs2+GDDqkAB5dOS5nB 0eYIFjFhS3PYdnX758OrQcl CIvPjxj g0jev3jjvQv4HxV8EGCabrU aqAwpMVA9k5TwOw85O30mIB dpZHRoPSIyMCUiIHZhbGlnb w9rcR8k Ii8+ERNmjNS8hIM7qI9hQhQ aWyD9QGdoZ314UrMrpWWvDj ciD17oJ9ZllPT+IPAaQhd3J CBzdHls ZJ7ncXQtUWnxDy5hHCY1EjZ hRjTwDXckY5AjLYElumimxb zpoPV4USSiFSEkiB09Fq4on DogMTBw mIFGeD7ddstfj6radrntOpP kPTJpGQt8TCu5ALMikPspAl BdOFQ6DyO2CKM7oQNflE0ze Glnbjog cH8cD9NiDEDrdaktHh20kO7 jKmSqSxX2OIegAtl+TUNDQU 5OLCBIRUFUSEVSIEVMSVpBQ kVUSDwv dGQ+BCIyZWK7kSjxFHkuCZE skB4lBOTlY8x8QpSbSoD3CZ gsO2ZsFFMyzcibLv22mE8jW iAwLjA1 JFzfD6HcddP4QOArlDHoYMg lSJH7H64fd4A6DJBtQHRyPD A0gQI0nM0gkVjrceiwbHAyf DsgdmVy oYnqWSihVLgpM444SQCqfQk zQaAbNhT5LaX9WTF1V2DiSs l6MWMccHawDQ4urYCuPXskO g9dvOup pWzlDV7aBXDabarpANCskL6 kKUZxzWOrdEmlUF0oRSMmvp dqu546TaFwCAW3BMAwkGNsS 3ArmC7g UqUeGUVrTTNxD6KlcRSqUZd xS491QZsqIiO3HNPxmkUdC7 LbBWXjrUhbHhQ3y9G9Fw8tA SBZZWFy czwvdGQ+PNQgVWP3wTqeYBd wGUCtfF7hRWHvV9p7KtYzHf O7BHwqJ1ZjJFPahouzVr55s R1rFiMc QgY2ZMwpP0HvbiP5RGQhtIM cMNuvDYY6V14xx8F6RHXpFE MdJYU7ePL0mV5pbImfoxjnt GVmdDsg wbPjfTseDQdzRMmqG746UUS vcDsnPkZFTUFMRTwvdGQ+PH SpYMI2rEcdAZbdNMSekT7xB JEiO7u0 HrHkRzK5YBluR6RgSGRtcmm qXb72bJ4vUjFfDsZ2AEbtL7 PhddC8BWYwsSNrXWzjFDV5U 04yu3E8 HDJuRWYsGEV4bOY6rP5vjCh nbjogbGVmdDsgdmVydGljYW kmUNruQ362MBKkjGmsFkIjY 3Vycmlu GsWHjNXzOJRfBQ71PA97HF5 2R6DiKivbrCOmlZL+PHRhYm xlIHdpZHRoPScxMDAlJyBzd OjcAN4x Mx0mRIJhNOGajUrqhUVbDyL ex1guZFZnHGxpVS9dlConA8 BnfMZ8UMOeq6y4Hx76W22fB 3JvdXA+ DPMndZA8kWS3rN8sNzPmUhD 1OKjbX218HtXfvVYpRhiko7 ugg4bezPo6XfTsRKZdqoWiw WduPSJ0 w9BpJt73Z81oWVnuYPVhZQB qZNMtYBCofKicjb5rbX2mIf 8+GSDisWB6zJD0bK2tYoNyR sQ8FZec U874LfCroXBsCepaM57pS7E vdXA+HDXeFmc3RCWlfDebOO 0bsAJvSLtePb7yDUL8FwDfH jIwMGlu D2UsNJKcvzoecyfqbRF6CBU mENJepA20Bx2nwFcoGn0zWM FvXWK3EOEohYFzW3UjvO8sO iAjMDAw KXKqY8KceQBmBRkvC253QTo hZgB4FPYomgBsI1GtJFKzhI ldXcD5o8H4Ny6IkAavmXZjH Q2ySiZa ZUg0I6VyXkc1FMNihKciOI4 caISsSAcdQv1xzMskxJhqJM 9eULYmubxgp789CyGvj6xoO DEwcHQg HUagRSX7F33ge8O9VTWnEJU tRZB8zOL1sR2haQffgxwhiL VmdDsgdmVydGljYWwtYWxpZ 246IHRv kXxnDzQQVus1L6AmHxg5VNA keQicDT1hfDXtIEvcQo5lgR subTdbCY0rLMAaqaimx076M sVcs7to OTUstKItSLmeCIT9N41qa7S 8PCUyTGKmJSZ6iZT3kC5wmT lnbjogbGVmdDsgdmVydGljY WwtYWxp C773JOBbxMwfDm0DOpr4J9L nCcv0FPPflEeiZO5seUDzMU ssGn4mjQbqsIxpLB3nGEWrk bdhb177 XpJoy5ncCGHewNOhJNkdVPY 8D01eh3W7YDKlPMWhNZJ4bI Z9lU2gzTlzhyxqnCDetUvdy mVydGlj RKqrIFavW198IYLfmGgwQkZ heWVyOjwvdGQ+MQ92ln14P5 TpTshkKau2HQMfDFO5iCK3d O3xWFSm [facility] [place] [facility] (more content not included)... Normal [facility] Provider [place] 03-07-2024 Provider Orders [id number] [facility] [id number] [facility] .Auto Diff 102-29-[address] [facility] [facility] % 3 % Normal 04-29 [facility] Comment on above: Performed By: #### 1 [id number], [id number], [id number] #### [facility] (DEFAULT) [address] [place] [address] Baso Abs# 0.0 x10 Normal 0.0-0.2 [facility] Comment on above: Performed By: #### 1 [id number], [id number], [id number] #### [facility] (DEFAULT) [address] [place] [address] Basophils/100 WBC (Bld) 0.3 % Normal 0.2-2.0 [facility] Comment on above: Performed By: #### 1 [id number], [id number], [id number] #### [facility] (DEFAULT) [address] [place] [address] Eos Abs# 0.0 x10 Normal 0.0-0.4 [facility] Comment on above: Performed By: #### 1 [id number], [id number], [id number] #### [facility] (DEFAULT) [address] [place] [address] 16[address] Eosinophils/100 WBC (Bld) 0.1 % Low 0.9-4.0 [facility] Comment on above: Performed By: #### 1 [id number], [id number], [id number] #### [facility] (DEFAULT) [address] [place] [address] Lymph Abs# 1.5 x10 Normal 1.3-2.9 [facility] Comment on above: Performed By: #### 1 [id number], 7293038, [id number] #### [facility] (DEFAULT) [address] [place] [address] Lymphocytes/100 WBC (Bld) 16 % Normal 14-48 [facility] Comment on above: Performed By: #### 1 [id number], 1742545, 8968694 #### [facility] (DEFAULT) [address] [place] [address] [facility] Abs# 0.3 x10 Normal 0.0-0.8 [facility] Comment on above: Performed By: #### 1 [id number], [id number], [id number] #### [facility] (DEFAULT) [address] [place] [address] 82535 Neut Abs# 7.8 x10 Normal 1.5-9.2 [facility] Comment on above: Performed By: #### 1 [id number], [id number], [id number] #### [facility] (DEFAULT) [address] [place] [address] Neutrophils/100 WBC (Bld) 81 % Normal 44-88 [facility] Comment on above: Performed By: #### 1 [id number], [id number], [id number] #### [facility] (DEFAULT) [address] [place] [address] CBC w/ Auto Diffon Erythrocyte distribution width (RBC) [Ratio] 13.9 % Normal 11.5-15.0 [facility] Comment on above: Performed By: #### 1 [id number], 0879298, 6244391 #### [facility] (DEFAULT) [address] [place] [address] Hematocrit (Bld) [Volume fraction] 45.3 % High 33.7-40.4 [facility] Comment on above: Performed By: #### 1 [id number], 8775629, [id number] #### [facility] (DEFAULT) [address] [place] [address] Hemoglobin (Bld) [Mass/Vol] 15.5 g/dL Normal 11.3-15.9 [facility] Comment on above: Performed By: #### 1 [id number], 1716896, 6648251 #### [facility] (DEFAULT) [address] [place] [address] Man Diff? Auto Invalid Interpretation Code [facility] Comment on above: Performed By: #### 1 [id number], 1418910, [id number] #### [facility] (DEFAULT) [address] [place] [address] MCH (RBC) [Entitic mass] 29 pg Normal 24-34 [facility] Comment on above: Performed By: #### 1 [id number], 6808423, [id number] #### [facility] (DEFAULT) [address] [place] [address] MCHC (RBC) [Mass/Vol] 34 g/dL Normal 26-37 [facility] Comment on above: Performed By: #### 1 [id number], [id number], 6237486 #### [facility] (DEFAULT) [address] [place] [address] MCV (RBC) [Entitic vol] 86 fL Normal 81-100 [facility] Comment on above: Performed By: #### 1 [id number], 5962065, 5020511 #### [facility] (DEFAULT) [address] [place] [address] Platelet 213 x10 Normal 138-427 [facility] Comment on above: Performed By: #### 1 7347421, 4369717, 8295389 #### [facility] (DEFAULT) [address] [place] [address] Platelet mean volume (Bld) [Entitic vol] 6.8 fL Normal 6.3-10.2 [facility] Comment on above: Performed By: #### 1 [id number], 6223960, 4128954 #### [facility] (DEFAULT) [address] [place] [address] RBC 5.28 x10 Normal 3.70-5.30 [facility] Comment on above: Performed By: #### 1 8155576, 7053738, 9309839 #### [facility] (DEFAULT) [address] [place] [address] WBC 9.6 x10 Normal 3.5-10.5 [facility] Comment on above: Performed By: #### 1 [id number], 4074774, 7267563 #### [facility] (DEFAULT) [address] [place] [address] Ferritinon 02-29-2024 Ferritin [Mass/Vol] 20.6 ng/mL Normal 12.0-150.0 [facility] Comment on above: Performed By: #### 1 [id number], 3948986, 3796743 #### [facility] (DEFAULT) [address] [place] [address] Iron Levelon 02-29-2024 Iron [Mass/Vol] 61.0 ug/dL Normal 28.0-170.0 [facility] Comment on above: Performed By: #### 9 [id number] ####[facility] (DEFAULT)[address] [place] [address] [id number] 02-28-2024 HNO ID: [id number] Author: IGNACIO GUY MD Service: ? Author [...] for three cycles. They will meet with JOINTER MACHINE OPERATOR to review the IUI checklist and sign consents. I spent a total of 45 minutes on the date of the service which included preparing to see the patient, [id number] patient care, completing clinical documentation, counseling and educating the patient/family/caregive r, and ordering medications, tests, or procedures. 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 They will meet with JOINTER MACHINE OPERATOR to review the IUI checklist and sign consents. I spent a total of 45 minutes on the date of the service which included preparing to see the patient, [id number] patient care, com (more content not included)... [facility] IGP,APTIMA HPV,AGE GDLNon AGE GDLN ACOG TESTING Note . [facility] Comment on above: TESTS RESULT FLAG UN ITS REF RANGE LAB Clinician Provided Cytology Information Source.............Cervix;Endocervix No. of containers..01 ThinPrep Vial Age Tayler SINHA Amaya... FLAG LEGEND: L-Low Normal,H-High Normal,LL-Alert Low,HH-Alert High <-Panic Low,>-Panic High,A-Abnormal,AA-Critical Abnormal Performed at: 01 =G [address] [place] [address] Dagmar Love MD, IGP, RFX APTIMA HPV ASCU Note . [facility] Comment on above: TESTS RESULT FLAG UN ITS REF RANGE LAB DIAGNOSIS: 02 NEGATIVE FOR INTRAEPITHELIAL LESION OR MALIGNANCY. Specimen adequacy: 02 Satisfactory for evaluation. Endocervical and/or squamous metaplastic cells (endocervical component) are present. Performed by: 02 Edel Sewell, Client Experience Consultant ([facility]) . 02 Note: Note 02 The [...] <-Panic Low,>-Panic High,A-Abnormal,AA-Critical Abnormal Performed at: [address] [address] Dagmar Love MD, Performed at: = - [address] [id number] Electronic Device Monitor: Dagmar Love MD, Phone: [phone] Performed at: [address] [id number] Electronic Device Monitor: Dagmar Love MD, Phone: [phone] BRUSH-SPATULA CERVIX ENDOCERVIX [facility] Coding Summaryon 02-20-2024 Coding Summary HTMLBase 64 AvmcnjplFNj4yTv+PGhlYWQ +TN0REMGhV60xjUMaqL3kK1 NMTElOSywgQVBQTElOSyIgb jTkQF1vlUXkYCQm IC8+SI8rUPAzNsqcoIRvv0D 8tPD1C34amn0aDAjezEX2IB LiKdDbggtkt4mxxKq3ZKxsV mluOyBt FHLofN11WEI8lU86Ls00jPL sbVZwz5vcsYj6VcRvOIXjQF M7pBamOGdtf0AmTQOnZ87cl NDhf7E3 SBSexYwxnAGqXtYttDJ9mJ2 aRUjzpuriy3rjmdvtFwk6bk 12wBQio0Y1cXZ7W6PsmjY9V GJvbGQg QozknVXDuZ4rdwyvg2mmlkw qTzTyHUKdHDq6HZr9HQIjdW khYaSgDY43DVP9HYBxlrJoE 2FsLWFs jFqxLiA6a9S2Uk6GI4APArm fE2WGWQECHRxoeGJ+PC90cj 06G8TwNbhtZdg6NUYoXXT9q JX4bB7b CHXwJAbfk0F5aXY5Y6FunyP ivv4pf3ujYPWmDXusE34ffH Wyv2I7SOBsfSH0ILEtlEprS iBzaG93 Oyc+MGXlhLuql0TaXpiij3w aj3cqmFm7YbisUGRemnOxtG xqSHK3i5FjKe5qULHivGL5o MS4mH7g HlVxPtI3RWlvF042NlGluJI pLyeoI22iV5BnfSH+PHRyPj i5EXDvjWehFX6cK3WmZOHrj mctbGVm wKhiBV0bZRFipvgmLOEzoW0 fRGAjC5u3BaTbBrS7XCwlE5 PrOEVsptilUc19kT2aMjPzF sN7NOrm F6TrmuS0ZGUvbSCmDOnaGRL 0C68ko8L9AASrGFLwPPH7oA P3xO2luKuekcsgiYIfwBcrt mVydGlj EHqiVZvtB419RXHfdIolUlR vZGluZyBEYXRlOiAgMTEvMD QvMjAyNDwvdGQ+TJJbVTY0p WxlPSAn wFGtBSvkXg4ryWuumZymDF0 lNXCqmpftSJXfhI6sDDLgfU RxfLfqHP0kORSklqdvm477N iAxMHB0 RJQleXUgB6CbnT9pIuFbVOJ kJRGzO4YzaCYlIAxxN965UE qiRdI4JFEuioKxB8WxDKEyu WduOiB0 g3M5Bf5Qc1PlffslW2HstPL dDbVrJdquHJu2B6CrUhmbdY I+CT24VIDvKD68RHu6DZF8o WxlPSdi VUOyP9JxzH8xJuTtSUFxZTL kOyc+PHRhYmxlIHdpZHRoPS qcPUXzHdTgwSvsJX8kAf5tG GVyLWNv jDbsuYPkNoJre7xlPSHwEVi vQW3nlOpjL2ElsAM0UBGnt3 i3Wr86E62pN8NrwUW+PGNvb DT8dBQ1 gJ3nYfCzAaQ8WSizW976IbK bpOOzUtkkj0lty3txyAg2Vh K1YSTvugTmzItsCYL8y7HnF o81W65t IHdpZHRoPSIxNSUiIHZhbGl dav6rnK1gAz3+QZPsvII7mJ K5gH1oKpXsFrL8ALwmJ836E nRvcCIv Fjebx5isy9sjkYd1PlUnOPU kvkTigLfhREB3n3QlFk33N9 CulYygu3NuArj8yd14dIXuw 5V7lJW6 D6JxMROytatukFDvvNtrWN9 tTYHkxuujIXIrqZ4hRQDpC1 k1TqFjDoK2UPdgM8TqlyE2I GJvbGQg RYDfxXQSuU6qklcfu8vyvcr qDwYbKZOnQRq1OOf7DXBwtX sdGyCeNPX1YrI6AKX0dPXoc J7llTjc vxfqoY4ySxo+XRO3oYQqrZW HDX5jTinwxUP+ZFGbNKW9hQ ncOQyrTGPlaM9eQQOdB3a3Y iAwLjA1 QUxeP3XgoeU6PXYrlOEfVPR xtCEEiB7pccdmy6wspgtkQg IaMZWqSNl8EIj0LPMukTrfZ iBsZWZ0 UkQ4UHO6cIYkmO0toRzuhqs ijM0mAuc+WgfrbEuzLCT8HY v0X2QzJdk0HNFmnKwwOM2oz GFkZGlu Ct1qfTrwcUybXO5qBYUirze jv809HqZlw9waXAGayBKyEG bvQWV8A59zi6H8FMYvBWFwS HI6gMW8 mR3tzZyojupdqUFbgKgrbtF rnPneFUkfODttD307LRKcxH rdOfLaZNd9H3FwBll9LLRdn IjqXR4t kCDqFWbxPc4ypDuihQooAI3 wSTKsibnlu669IaYsc3whXK UuoLIyTVssAUD7K02lo6M5Y CMwMDAw EKW0gFD5cN3gfSabtcuwvVI mdDsgdmVydGljYWwtYWxpZ2 34ETRglGllEeUzaMs5W7XuS vx8JFMd uKyaRT5lmUSuXBvsNu3buMo frPltAE9pIGNsffrjj005Gs Stv5bfTCEoyRIqFCglUJG9U 75dv1Z8 DAVpEYYuXWN0fTB7zB5aaIq nbjogbGVmdDsgdmVydGljYW chKBfyT133ZQOgtHbqInErp GllbnQg OIonWAv2U4QoZfzzvYS+PC9 0XOWcMN81cPKczPBrz6phsA l2YdZlOCZcNUZ5bGkiVGxvg 3JkZXIt W15lfTOay8I4ZLQnoJggzLW qZwTpwXE9rF1hQQpodyrnd5 efkpzaSkwwa6ktth66xV25W 29sIHdp ZHRoPSIzMCUiIHZhbGlnbj0 jzC5lCb8+BTExnAZ7wAW6rO 9eVRVtMbU1IOddR544VxGto CIvPjxj m4dhw0eahWl8RuS4VKXuwlM hqIbqIKW2o9SoRz24G20hED dpZHRoPSIyMCUiIHZhbGlnb x0vrL0u Ii8+OBXjlJB2sAJ2mM0cXcF gFlQ7KPyxZ369XoWlwZBwKd wqG24cS0JiuFL+NQScAif3Y CBzdHls DA7cpOCvNUnhJm4dMTG2SsC eGeMzCPvkS9WgWUQaxfxuux hjwAY9HETvBYIzkK58Ib8ay DogMTBw hMCHeE5elsgns1nxmsvlHpH oXNZoERs7GXf6LLFgaRjsPo RxBKF7TlA6XZV2oYHbfR7ju Glnbjog zS0dR3TfHMRfiostLo89pH1 uTbWlHfB8LVfaGqt+TUNDQU 5OLCBIRUFUSEVSIEVMSVpBQ kVUSDwv dGQ+FRZaGPV4qIynQMgnJFX ttP1zTSQsJ6v7PwInUwC2FW dvE9SvUAVilzgpXm00iC6lI iAwLjA1 TQljU8FeftJ0GCSisOIoXMi tFZY5K59tl2D2MKOeDFBrQV Z8mEM9vT6cdOiypugthIIvv DsgdmVy dXnhIXcuMBmlD866ZVEgiDh dBoPfCjW7LuK1MJW0C6WmNf d9ECTelKdnRG5gdYTyHMiyV j6hqTxf hHvxLT2rCFOqnqqmMRKscO7 fFEHcnHRjmQipCE0iMQQnrk nfx776SxKbBJL4EXDsfFMtY 1AptN9h IiPoDGVrVEHeX1CerRGtYEb gZ693RAlrBaR6FVHnghSpN1 TpGQIkoJqnYaO3i0V3Bv1fM CBZZWFy czwvdGQ+BKYaPOT5zAqhQTc dOEXjcI4tCHAqD2x0PdUhOy F4LDlvY1CnIYVuphxpLy24p J3rXeGw CeU7DFoyW4CwhxV1UPPtvOL vMFtxDDE2U71po5T4TRLcFU QlNHO1cHS5nL2pfBhbpldor GVmdDsg ftDtjXnjRQcqVZsbX394PKF vcDsnPkZFTUFMRTwvdGQ+PH WsVRR8dRwqDNdqEPUsdE7wZ JAcH3y0 ZxFsAvY6FBaxZ4QpGLIrudf uUt59eK9rTuRmLhN5GRnbF8 OpxjH0KEAepHYuKKkyBBN9U 87kw7S5 WHJqEFVuAAK9qJC5sB3ilWy nbjogbGVmdDsgdmVydGljYW ahMOlhJ657EOUcjCbbAcEuA 3Vycmlu JfSJwLRzYDBcJU65FK23VH0 2H9MzBdixzRCohCS+PHRhYm xlIHdpZHRoPScxMDAlJyBzd PncYI1z Hd5wBAGxJZWtkQvdfMJgZmB vc3jkCUBbLOudET0fbIlbI6 QseQF5XSLpc1y3Ql05J33wP 3JvdXA+ FTQbaMG3cIQ6yC9aFxKpAzO 9KJowT180FqEsoDGrYytau7 tga8kzbMv1ZpDmHLXbwlXhv WduPSJ0 p3HwIl31W69nJOypGAQdPKT oHLUrSSJjyTmxkt7kdD7hXa 8+QNWouNL1zYS9fB8qKhXcE tH1XSdx F328GuEmzTObTwdcL90gX8F vdXA+QKPcHnv2ECVmsTrbNU 6cnWJkHSnrPf5sDKV3IvSoQ jIwMGlu X7HnDJCcwqyrwdrqxON2NDS lLEJhlP62Tk5qrRhdOc0mDF BtUJV7YKMndWDxL7OsvZ2jP iAjMDAw QVMqS6OxfHNmXZimP852RKl eEfC7QZMmkbQyG2FnGKQoeS qaKoJ3y4I5Pb8NsGtpbASkL K1gDxDf DPw4Q9HwYsu9WDPvfMcvNF0 vdJEmVWpgZe9chTlrlHloII 3lHPNpdrkdc079TcWzc3sxX DEwcHQg SHwbNOK6X62ox1G9ARCmMAR fOAQ6iLT6nE4cpDgwuzbejE VmdDsgdmVydGljYWwtYWxpZ 246IHRv iEqfHtUSVmf4H6CiBzd5LIN yqWprUS9vuWBcWPxaVy1ecH canPmqSZ4bEKUaqwvar620H vTmk2jr JQTddOIzUMjvZUD9W00qq5L 5SCJkQPZjPJK1oYA8eW0kjG lnbjogbGVmdDsgdmVydGljY WwtYWxp E178GPNrlLiaTh6MErq5O7X uCax9HTAikUzoZA1iyMAhYP gjHj2taEkyjCcsFP7yJZBmq kqvc027 JxJrf2exSNPitDMpSBjwRMR 6T67ej5H9BHMaGYMbYJO0eC B3gL9isCjhsmytkYJsfZxnt mVydGlj NUkqDSubM860WFLasDjfIaX heWVyOjwvdGQ+IO81bz05G6 MgSyoqGaf7PDZkKMW0mYQ7i P6nVLMo [facility] (more content not included)... [facility] Human papilloma virus 16+18+ 31+33+35+39+45+51+52+56+58+59+66+68 DNA [Presence] in Addi 02-20-2024 HPV 16+18+31+33+35+39+45+5 1+52+56+58+59+66+68 DNA Probe+sig amp Ql (Cvx) Human papilloma virus 16+18+31+33+35+39+45+51 +52+56+58+59+66+68 DNA [Presence] in Cer . [facility] Comment on above: TESTS RESULT FLAG UN ITS REF RANGE LAB DIAGNOSIS: 02 NEGATIVE FOR INTRAEPITHELIAL LESION OR MALIGNANCY.Specimen adequacy: 02 Satisfactory for evaluation. Endocervical and/or squamous metaplastic cells (endocervical component) are present.Performed by: 02 Edel Sewell, Client Experience Consultant ([facility]). 02Note: Note 02 The Pap smear is [...] High <-Panic Low,>-Panic High,A-Abnormal,AA-Critical Abnormal -----Performed at:02 [facility] [address] [place] [address] Dagmar Love MD, Pwwvfstyw at: =G - [facility] [id number] Director: Dagmar Love MD, Phone: [phone] at: WB - [facility] [id number] Director: Dagmar Love MD, Phone: [phone] No Panel Informationon 02-19 Reference Lab Test Patient Age Note . [facility] Comment on above: TESTS RESULT FLAG UN ITS REF RANGE LAB Clinician Provided Cytology Information Source.............Cervix;Endocervix No. of containers..01 ThinPrep VialAge Algo ACOG Amaya... FLAG LEGEND: L-Low Normal,H-High Normal,LL-Alert Low,HH-Alert High <-Panic Low,>-Panic High,A-Abnormal,AA-Critical Abnormal -----Performed at:01 =G [address] [address] Dagmar Love MD, .Auto Diff 1on 02-06-[address] [facility] [facility] % 6 % Normal 12 [facility] Comment on above: Performed By: #### 7 [id number] #### [facility] (DEFAULT) [address] [place] [address] Baso Abs# 0.0 x10 Normal 0.0-0.2 [facility] Comment on above: Performed By: #### 7 [id number] #### [facility] (DEFAULT) [address] [place] [address] Basophils/100 WBC (Bld) 0.3 % Normal 0.2-2.0 [facility] Comment on above: Performed By: #### 7 [id number] #### [facility] (DEFAULT) [address] [place] [address] Eos Abs# 0.2 x10 Normal 0.0-0.4 [facility] Comment on above: Performed By: #### 7 [id number] #### [facility] (DEFAULT) [address] [place] [address] Eosinophils/100 WBC (Bld) 3.4 % Normal 0.9-4.0 [facility] Comment on above: Performed By: #### 7 [id number] #### [facility] (DEFAULT) [address] [place] [address] Lymph Abs# 2.4 x10 Normal 1.3-2.9 [facility] Comment on above: Performed By: #### 7 [id number] #### [facility] (DEFAULT) [address] [place] [address] Lymphocytes/100 WBC (Bld) 34 % Normal 14-48 [facility] Comment on above: Performed By: #### 7 [id number] #### [facility] (DEFAULT) [address] [place] [address] [address] [address] [facility] Abs# 0.4 x10 Normal 0.0-0.8 [facility] Comment on above: Performed By: #### 7 [id number] #### [facility] (DEFAULT) [address] [place] [address]007 Neut Abs# 4.0 x10 Normal 1.5-9.2 [facility] Comment on above: Performed By: #### 7 [id number] #### [facility] (DEFAULT) [address] [place] [address] Neutrophils/100 WBC (Bld) 56 % Normal 44-88 [facility] Comment on above: Performed By: #### 7 [id number] #### [facility] (DEFAULT) [address] [place] [address] CBC w/ Auto Diffon 4 Erythrocyte distribution width (RBC) [Ratio] 14.0 % Normal 11.5-15.0 [facility] Comment on above: Performed By: #### 7 [id number] #### [facility] (DEFAULT) [address] [place] [address] Hematocrit (Bld) [Volume fraction] 41.7 % High 33.7-40.4 [facility] Comment on above: Performed By: #### 7 [id number] #### [facility] (DEFAULT) [address] [place] [address] Hemoglobin (Bld) [Mass/Vol] 14.1 g/dL Normal 11.3-15.9 [facility] Comment on above: Performed By: #### 7 [id number] #### [facility] (DEFAULT) [address] [place] [address] Man Diff? Auto Invalid Interpretation Code [facility] Comment on above: Performed By: #### 7 [id number] #### [facility] (DEFAULT) [address] [place] [address] MCH (RBC) [Entitic mass] 29 pg Normal 24-34 [facility] Comment on above: Performed By: #### 7 [id number] #### [facility] (DEFAULT) [address] [place] [address] MCHC (RBC) [Mass/Vol] 34 g/dL Normal 26-37 [facility] Comment on above: Performed By: #### 7 [id number] #### [facility] (DEFAULT) [address] [place] [address] MCV (RBC) [Entitic vol] 86 fL Normal 81-100 [facility] Comment on above: Performed By: #### 7 [id number] #### [facility] (DEFAULT) [address] [place] [address] Platelet 196 x10 Normal 138-427 [facility] Comment on above: Performed By: #### 7 [id number] #### [facility] (DEFAULT) [address] [place] [address] 82450 Platelet mean volume (Bld) [Entitic vol] 6.8 fL Normal 6.3-10.2 [facility] Comment on above: Performed By: #### 7 [id number] #### [facility] (DEFAULT) [address] [place] [address] 33532 RBC 4.84 x10 Normal 3.70-5.30 [facility] Comment on above: Performed By: #### 7 [id number] #### [facility] (DEFAULT) [address] [place] [address]126 WBC 7.1 x10 Normal 3.5-10.5 [facility] Comment on above: Performed By: #### 7 [id number] #### [facility] (DEFAULT) [address] [place] [address] Ferritinon 02-06-2024 Ferritin [Mass/Vol] 15.8 ng/mL Normal 12.0-150.0 [facility] Comment on above: Performed By: #### 1 [id number], [id number], [id number] #### [facility] (DEFAULT) [address] [place] [address] 5[address]60 Iron Profileon 02-06-2024 Iron [Mass/Vol] 72.0 ug/dL Normal 28.0-170.0 [facility] Comment on above: Performed By: #### 1 [id number], [id number], [id number] #### [facility] (DEFAULT) [address] [place] [address] Iron Sat 19 % Low 20-55 [facility] Comment on above: Performed By: #### 1 [id number] #### [facility] (DEFAULT) [address] [place] [id number] TIBC 384 mcg/dL Normal 250-400 [facility] Comment on above: Performed By: #### 1 [id number] #### [facility] (DEFAULT) [address] [place] [address] 17728 Transferrin [Mass/Vol] 274.6 mg/dL Normal 192.0-382.0 [facility] Comment on above: Performed By: #### 1 [id number] #### [facility] ([facility]) [address] [place] [address] Coding Summaryon 12-11-2023 Coding Summary HTMLBase 64 FrznucucRXd3rEt+PGhlYWQ +FH5GZJHdE29deUWuaJ8mL6 NMTElOSywgQVBQTElOSyIgb pEmYR6ncEYsZKNd IC8+LV5eASDlYwwodKAcm3P 7zWA5R64ifw6rKIzoiJN9LA FwDqKfduvbp5nikHv9OAezV mluOyBt GTWtxC53YWP4cW32Cz46tWG ddRUeq4enkHt7IbYxQDCyJL K6yZayCBnkd1WmKMQzV44ut NRor4M1 PAHkvRdfgLUeDoUjoDL6wX3 kGLewczyyh9wfioevIxm0gr 22tJGrl9O4jBP8K5UfdlO8N GJvbGQg SlcjpWIWrG1kocdwh6cvpom qCgBcCKMsGUy8INz4BVEkuB dnHtEvXN14OQP3KATpmbOwG 2FsLWFs jZsvSmN7j4D2Bc1KM6GQAtx wD0BMESJZEMywfRC+PC90cj 28G4XyDxvqSgt2OWPsFRO1w TO2uA1m OKAnVQkaq0D4qQT0R8HkquS upp5qj8qmNITgSNwoJ00zlP Ngo4M6FLInnRE2TOXqtYivQ iBzaG93 Oyc+QWWbmLrwo7CpMirtr2b cv7itgZm8XznuSGHtihMncG lwRYD0a5ZiEp7fDKWllTN0z VY4kG1o IpGmBsV4DIonA291HwWizWL tFcjmT34mT8GejNI+PHRyPj b8YFVhlDmcEZ2hB4FbCUNln mctbGVm sXtzXM4kRNVimnqcEYPxcH3 hPBKvR8z8ZiOqOlH9THqaS9 SjIUYbbhkaXn99qJ1jGvXeC uU9ECjh B5ZbqoM4OPRjqEMsZFymYHX 8P56dd7M5SPWrJMJyMYM5hJ A6tX5hsDtipezzkSEdfPdnl mVydGlj NFrgVJliA195SSJknYluYgW vZGluZyBEYXRlOiAgMDgvMj UvMjAyNDwvdGQ+NYWjEGE1q WxlPSAn vUZeFThrFk4muCaxeJkiOF8 aWDNrmkbbSSVpnK5fAVLdiP PgoPdcOW5uKFFlurgtj545R iAxMHB0 XNFbaIKxX8KeiU3iTfQsKBK bOJLxH1YdxCXuXLzvE299RT gsLvY9BZYxjuTqX5IqXVRlk WduOiB0 x3P1Hg4Lc9KhukwyN7HzoHH oXmKmEpvwWSq3R9IhBojhuZ I+UL63QLUtBK18XTu5CSO4x WxlPSdi UIZyS5CfyY1hDxWpDNCnFDY kOyc+PHRhYmxlIHdpZHRoPS nfPBFaApQjeZtxZL9aPu8gH GVyLWNv lBhhbPNyHtVpm7tmKQExJXk dMV4iwCdxO0SgfCC0SOMnz6 l4Pp69R74lW2YaoCN+PGNvb YP0rOU8 cL4gUkKlFuP9IWntY649FpR crHPcWmvii7zfc2zriJa7Bj Z0EDWshkNqpOguDBW9r6KuZ l18W03l IHdpZHRoPSIxNSUiIHZhbGl oet0izP4oCt8+VDSktRW5fG R6oV2iCoArAcA2ICzgJ325V nRvcCIv Jhhqa6rpb4uqvNt1ZjDzADS vtwBymYoiEQP9d8KtXm53H4 OgjMqnc0RbGve0yy94dTIbu 2B7eCW3 E7KzAMZbwnpkqAHynGsyWA6 aDWAwouriCNYwvS5vYIQsL6 k7TjPvRgL1TJyrJ2PqewY5H GJvbGQg NLTyxJXUmT3yoekvz7dibgb pBzTbYBXgPAg7AWn0ITUdkK lkZhLeCZS2GkZ8EDQ2jLYwz Z0caLme cpevvS9jIru+URG2dTRztHO ZEF4eLckieBW+ICJbGUY9fW hoTQmaFSMpzL2lVIReA3q6P iAwLjA1 VTqbC9TbxdH6PHGfsWQlIEX tdOAGsP6ujxjfy1gpsklrLu XwEJQrVEr5IKc6BQWamZjjZ iBsZWZ0 MqQ5SLT3fTJarC5bmBricwz qaD6xDna+IisaxUrmHOR2EI y9Y5GhIfs6QQPtpYnqIP9jj GFkZGlu Br9pfZlcjDfzGS9sWJAvgos bg070SsPmp9siOMQcaMOiOJ bsMIW8J37mt9L0TKQjMLYeY SC6dTG5 iZ1rbQinqpbwlQXwyWvpnkA bcOwbQDefFAueD229HTGyzB cyJdBoPAn0B3WgVrd7FNMre XqgYR3e lMBbGIinPv0bcPadhJpqKW3 iFLTsjylna982JeAeh3jdBJ GhqUKhMQgeTQN1Q19pg1J5X CMwMDAw EPK4bMH4zX2uiKmecmqceTP mdDsgdmVydGljYWwtYWxpZ2 88SQHviYoqSnFnsQu3D6YcF rd4WGFb sEylPG0ixPFjTRqzRq4dmFt wxXroKO5uWFVntbons957Cw Vpe2ihQJYskLXkRAbmRKC6B 85qa4V4 YQAuTRBwKMO2oXI1fI3xjDf nbjogbGVmdDsgdmVydGljYW ydLNwkW252NATzpMlhAjJgx GllbnQg MUigVIk6T9XtDkwukAI+PC9 9VEEtTP46iXNgqNJxz2bniP e8GmPjRDFpXPG5gBbhDRuhz 3JkZXIt D42baZQos1P6XBTofVprpKO cHvJorKM5qQ8eJXuqofacj0 roplblVngxc5vfhx16fA63W 29sIHdp ZHRoPSIzMCUiIHZhbGlnbj0 wnA0gTn1+EKRvoWB0mFL7qQ 5hJCXeXfE5JWqiF551JlEet CIvPjxj h6ssb0ljwNh6WlS5XMHelgO cwKvkUFB5j7FaYl83K72iCX dpZHRoPSIyMCUiIHZhbGlnb d7itP5w Ii8+UGNvwIV5eNJ8sM4jXlP yIrC1OJooV362GiJlpNSnUe owQ41qS8GokPH+QZOkBmv4Y CBzdHls CI5aiWFnZKqdGu7qLID4ZtD bBtArXBeeM0CgKCPevptunv fgeFI6ALLtIMDqxF01Pb3gb DogMTBw aFKXuY8uystpp7uxucxiZfH jTBDvUEw6EJw3WSFekSgoTj QzTJJ9TzE7YPX6kBWqpJ9gs Glnbjog jM5xA3AbTUXyuxrkDu52rB7 jAzPeUnX4BFwtIdc+TUNDQU 5OLCBIRUFUSEVSIEVMSVpBQ kVUSDwv dGQ+ODCzBSL7bJxwJRnqLSO zkF9kKRJgR3a9OlWnEdH5FR aqT6OgAENcvlmeJc29qX0eM iAwLjA1 NCkeA1SotsP4GLXsnFMgBFg vZZK0E45zl2K4ZXCyIBUlHN M5xMJ2lU0meHkhpmrwzZDhj DsgdmVy fYhzJRgnGObjX342NMZgvYd gOzJuHyF1TxS0WRM3C6JxXe r0FYMtbPsmMJ9igRNhSAjdF l1ppVsy jTcvEH1tQUSqdqxtUIJvdZ7 bJPKwzOFlkIxqBL0kWYXgky zhg413CeQtSSS2DCVtvCRdH 0MkbM1g ZeOgYKCiYDAqD3AcpVDuSDw iD493FTmmIoC8TETalsCdE3 CnWHSkpOchWzO2k4L9Aq1cD CBZZWFy czwvdGQ+JYHnGYM4rBjbVVt gTWKmfM1dANNkL5h6VfMoZc A5ZRjgG5WnXUIldcenPz55h V0dBsZl TiX3MDdcU8GyspN7DGOaeOD cTIxmSGT5W30gu4M5CQCmWZ YdAKO9fHO8cA4reXzyzhphh GVmdDsg kxTglPzwEDtjHEurF812DKJ vcDsnPkZFTUFMRTwvdGQ+PH TvOTA2eTkuMXgwXHTvrE8hM VFvL8g8 McQiSjL4CJjlI5EzVLIhzgq eRp90uL6pTvClGiC8DCxcT9 GzpbF8LTVtaRPjLRypPKM9T 20yu7I0 NQRgERWzFTZ6gKE6lH6gmRq nbjogbGVmdDsgdmVydGljYW cyZFcmM374RYKhaMdxHrDwF 3Vycmlu MaGJqEAsBZIwDA81JC12GD0 6C1QyPmyxuHPojJS+PHRhYm xlIHdpZHRoPScxMDAlJyBzd MthWY0n Ab3wCEDoSSDkpNudhPYbViI vx0vjAKWeNPjtAW1nzYlaN6 BgyMT7IPYbv4j8Uz38W21kF 3JvdXA+ UAOmbAG3dAU0nB5wRwUwIsM 2RArtR122FbLjoTRdBgtbq7 daj0kngIr2AxOuXSFifvEse WduPSJ0 i6YvAa42J72bONlrIXPrZHU zBUImJWMeiNfsac5usW0uYc 8+UUXmlGR1zZO3hX8eOdSjM kO4GCpx F860JjXwwBQrMujrX08cC4Z vdXA+APSqHyn5HJSudMjwWK 4ajIMnNBnzLh0oHQY3FhTxA jIwMGlu G9EjYCXbmpitfzwgpTB5DFP aUQVslZ12Uz8iaYpxMm5sTF YbPZC4KLOnaOKnH7XduW4uD iAjMDAw YMVrX2EheIUzEJpaX059ANg sKoS5EKGawyOrD1HxSJNxuY okTsE8f7Y5Oh5SgYnctOJqF M9sWzQi VPo5Q8AxYhm1VZWwpTayVK5 hbXXmJUgmSm2drAbreJxvLC 6eHBPqsfzqy172SzTps2nsI DEwcHQg LRpuQYR6H91iz7T2SPGgAPT lFSH9pMZ6hK4rdXygfokgjG VmdDsgdmVydGljYWwtYWxpZ 246IHRv pJlwAnMXQsi1A8DtQlw9GXM owTprQO8mvDMdIEkhFx8ncF mvsWfoVH3cMILbzcdrx917P oMfo7pv HGLxeGPyDKgcDVV5J26rl0D 7LJTrDKVzVML9mRZ8yC3grE lnbjogbGVmdDsgdmVydGljY WwtYWxp V773XQApeHvwKn1EQsk4I8X bIex6QIRxfCerYX9jfYVgHU pgLs1rzIjxlDzgIG0cYEDxg ewtm845 HjEwh6gkLAUggCRzTFrsWXI 7E00pn0B5AZYwIPHeQLN4zQ V8kW9siHietfgwjMNaeKzat mVydGlj OXnoYNtqI321IAMauJzfVwA heWVyOjwvdGQ+JC47ap93I6 MoZrsiPmm0SCTqWFM0zOH8t [id number] [place] [facility] (more content not included)... Normal [facility] Amphetamine Screen Ql (U)Ord ered By: Andry Lacy on 12-07-2023 Amphetamines Ql (U) Amphetamines screen Negativ e [facility] Amphetamines Ql (U) Negative Negative [facility] Barbiturates [Presence] in U rine by Screen methodOrdered By: Andry Lacy on 12-07-2023 Barbiturates Screen Ql (U) Negative Negative [facility] Barbiturates Screen Ql (U) Barbiturates [Presence] in Urine by Screen method Negative [facility] Benzodiazepines Screen Ql (U )Ordered By: Andry Lacy on 12-07-2023 Benzodiazepines Ql (U) Positive High Negative [facility] Benzodiazepines Ql (U) Benzodiazepines [Presence] in Urine by Screen method High Negative [facility] Benzoylecgonine [Presence] i n Urine by Screen methodOrdered By: Andry Lacy on 12-07-2023 Benzoylecgonine Screen Ql (U) Negative Negative [facility] Benzoylecgonine Screen Ql (U) Benzoylecgonine [Presence] in Urine by Screen method Negative [facility] Cannabinoids [Presence] in U rine by Screen methodOrdered By: Andry Lacy on 12-07-2023 Cannabinoids Screen Ql (U) Positive High Negative [facility] Comment on above: These are unconfirme d results and should not be used for legal purposes. Drug Cut-Off Concentration: AMPH 1000 ng/mL LUIS ANTONIO 200 ng/mL JOHN 200 ng/mL COCM 300 ng/mL OP 300 ng/mL PCP 25 ng/mL THC 20 ng/mL Cannabinoids Screen Ql (U) Cannabinoids [Presence] in Urine by Screen method High Negative [facility] Comment on above: These are unconfirme d results and should not be used for legal purposes. Drug Cut-Off Concentration: AMPH 1000 ng/mL LUIS ANTONIO 200 ng/mL JOHN 200 ng/mL COCM 300 ng/mL OP 300 ng/mL PCP 25 ng/mL THC 20 ng/mL HCG ( test) IA.rapi d Ql (U)Ordered By: Andry Lacy on 12-07-2023 HCG ( test) Ql (U) Negative [facility] HCG ( test) Ql (U) Urine human chorionic gonadotropin (hCG) detection by immunoassay [facility] Opiates [Presence] in Urine by Screen methodOrdered By: Andry Lacy on 12-07-2023 Opiates Screen Ql (U) Negative Negative [facility] Opiates Screen Ql (U) Opiates [Presence] in Urine by Screen method Negative [facility] Phencyclidine Screen Ql (U)O rdered By: Andry Lacy on 12-07-2023 Phencyclidine Ql (U) Negative Negative [facility] Phencyclidine Ql (U) Phencyclidine [Presence] in Urine by Screen method Negative [facility] Alanine aminotransferase [En zymatic activity/volume] in Serum or PlasmaOrdered By: Romeo Santana on 11-28-2023 ALT [Catalytic activity/Vol] 14 U/L 7-52 [facility] Albumin [Mass/volume] in Ser um or Plasma by Bromocresol green (BCG) dye binding methoOrdered By: Romeo Santana on 11-28-2023 Albumin BCG dye [Mass/Vol] 4.6 g/dL 3.5-5.7 [facility] Alkaline phosphatase [Enzyma tic activity/volume] in Serum or PlasmaOrdered By: Romeo Santana on 11-28-2023 ALP [Catalytic activity/Vol] 41 U/L 34-104 [facility] Aspartate aminotransferase [ Enzymatic activity/volume] in Serum or PlasmaOrdered By: Romeo Santana on 11-28-2023 AST [Catalytic activity/Vol] 13 U/L 13-39 [facility] Basophils Auto (Bld) [#/Vol] Ordered By: Romeo Santana on 11-28-2023 Basophils (Bld) [#/Vol] 0.0 10*3/uL 0.0-0.2 [facility] Basophils/100 WBC Auto (Bld) Ordered By: Romeo Santana on 11-28-2023 Basophils/100 WBC (Bld) 0.3 % . [facility] Bilirubin.total [Mass/volume ] in Serum or PlasmaOrdered By: Romeo Santana on 11-28-2023 Bilirubin [Mass/Vol] 0.5 mg/dL 0.3-1.0 [facility] Calcium [Mass/volume] in Ser um or PlasmaOrdered By: Romeo Santana on 11-28-2023 Calcium [Mass/Vol] 9.4 mg/dL 8.6-10.3 [facility] Carbon dioxide, total [Moles /volume] in Serum or PlasmaOrdered By: Romeo Santana on 11-28-2023 CO2 [Moles/Vol] 27.8 mmol/L 21.0-31.0 [facility] Chloride [Moles/volume] in S betty or PlasmaOrdered By: Romeo Santana on 11-28-2023 Chloride [Moles/Vol] 106 mmol/L 98-107 [facility] Creatinine [Mass/volume] in Serum or PlasmaOrdered By: Romeo Santana on 11-28-2023 Creatinine [Mass/Vol] 0.62 mg/dL 0.60-1.20 [facility] Eosinophils Auto (Bld) [#/Vo l]Ordered By: Romeo Santana on 11-28-2023 Eosinophils (Bld) [#/Vol] 0.2 10*3/uL 0.0-0.45 [facility] Eosinophils/100 WBC Auto (Bl d)Ordered By: Romeo Santana on 11-28-2023 Eosinophils/100 WBC (Bld) 3.5 % . [facility] Erythrocyte distribution wid th Auto (RBC) [Ratio]Ordered By: Romeo Santana on 11-28-2023 Erythrocyte distribution width (RBC) [Ratio] 14.0 % 11.9-15.3 [facility] Globulin Calc (S) [Mass/Vol] Ordered By: Romeo Santana on 11-28-2023 Globulin (S) [Mass/Vol] 2.0 g/dL [facility] Glucose [Mass/volume] in Ser um or PlasmaOrdered By: Romeo Santana on 11-28-2023 Glucose [Mass/Vol] 76 mg/dL 70-100 [facility] Hematocrit Auto (Bld) [Volum e fraction]Ordered By: Romeo Santana on 11-28-2023 Hematocrit (Bld) [Volume fraction] 40.1 % 34.0-46.4 [facility] Hemoglobin [Mass/volume] in BloodOrdered By: Romeo Santana on 11-28-2023 Hemoglobin (Bld) [Mass/Vol] 13.6 g/dL 11.8-15.4 [facility] Leukocytes [#/volume] correc terry for nucleated erythrocytes in Blood by Automated counOrdered By: Romeo Santana on 11-28-2023 WBC corrected for nucl RBC Auto (Bld) [#/Vol] 6.4 10*3/uL 3.8-11.6 [facility] Lymphocytes Auto (Bld) [#/Vo l]Ordered By: Romeo Santana on 11-28-2023 Lymphocytes (Bld) [#/Vol] 2.4 10*3/uL 1.00-4.8 [facility] Lymphocytes/100 WBC Auto (Bl d)Ordered By: Romeo Santana on 11-28-2023 Lymphocytes/100 WBC (Bld) 38.3 % . [facility] MCH Auto (RBC) [Entitic mass ]Ordered By: Romeo Santana on 11-28-2023 MCH (RBC) [Entitic mass] 29.3 pg 24.7-34.3 [facility] MCHC Auto (RBC) [Mass/Vol]Or dered By: Romeo Santana on 11-28-2023 MCHC (RBC) [Mass/Vol] 33.8 g/dL 32.0-35.0 [facility] MCV Auto (RBC) [Entitic vol] Ordered By: Romeo Santana on 11-28-2023 MCV (RBC) [Entitic vol] 86.7 fL 80-100 [facility] Monocytes Auto (Bld) [#/Vol] Ordered By: Romeo Santana on 11-28-2023 Monocytes (Bld) [#/Vol] 0.4 10*3/uL 0.0-0.8 [facility] Monocytes/100 WBC Auto (Bld) Ordered By: Romeo Santana on 11-28-2023 Monocytes/100 WBC (Bld) 5.8 % . [facility] Neutrophils Auto (Bld) [#/Vo l]Ordered By: Romeo Santana on 11-28-2023 Neutrophils (Bld) [#/Vol] 3.3 10*3/uL 1.8-7.7 [facility] Neutrophils/100 WBC Auto (Bl d)Ordered By: Romeo Santana on 11-28-2023 Neutrophils/100 WBC (Bld) 52.1 % . [facility] No Panel InformationOrdered By: Romeo Santana on 11-28-2023 Estimated GFR (CKD-EPI) > 60.0 mL/Min [facility] Creatinine Clearance (Chem N/A [facility] Nucleated erythrocytes [Pres ence] in Blood by Automated countOrdered By: Romeo Santana on 11-28-2023 Nucleated RBC Auto Ql (Bld) 0.0 /100{WBC} 0-0.5 [facility] Platelet mean volume Auto (B ld) [Entitic vol]Ordered By: Romeo Santana on 11-28-2023 Platelet mean volume (Bld) [Entitic vol] 6.8 fL 6.3-10.7 [facility] Platelets Auto (Bld) [#/Vol] Ordered By: Romeo Santana on 11-28-2023 Platelets (Bld) [#/Vol] 159 10*3/uL 150-450 [facility] Potassium [Moles/volume] in Serum or PlasmaOrdered By: Romeo Santana on 11-28-2023 Potassium [Moles/Vol] 4.2 mmol/L 3.5-5.1 [facility] Protein [Mass/volume] in Ser um or PlasmaOrdered By: Romeo Santana on 11-28-2023 Protein [Mass/Vol] 6.6 g/dL 6.4-8.9 [facility] RBC Auto (Bld) [#/Vol]Ordere d By: Romeo Santana on 11-28-2023 RBC (Bld) [#/Vol] 4.63 10*6/uL 3.60-5.00 [facility] Serum or plasma albumin/glob ulin mass ratioOrdered By: Romeo Santana on 11-28-2023 Albumin/Globulin [Mass ratio] 2.3 {ratio} [facility] Serum or plasma anion gap de terminationOrdered By: Romeo Santana on 11-28-2023 Anion gap [Moles/Vol] 10.4 mmol/L 6.0-15.0 [facility] Sodium [Moles/volume] in Ser um or PlasmaOrdered By: Romeo Santana on 11-28-2023 Sodium [Moles/Vol] 140 mmol/L 136-145 [facility] Urea nitrogen [Mass/volume] in Serum or PlasmaOrdered By: Romeo Santana on 11-28-2023 Urea nitrogen [Mass/Vol] 7 mg/dL 7-25 [facility] WBC Auto (Bld) [#/Vol]Ordere d By: Romeo Santana on 11-28-2023 WBC (Bld) [#/Vol] 6.4 10*3/uL 3.8-11.6 [facility] Coding Summaryon 11-14-2023 [facility] OmkfayxzKAg6iPw+PGhlYWQ +ID5EZKDlE17wlNBkgB1yS6 NMTElOSywgQVBQTElOSyIgb sAkEL0thPHgZLSl IC8+FR4cGAKgBxeyiLVgc8L 9gGH9D83rbt5mFYxnyBD7BY KtAuJxchjlp0koqEn5KZpoM mluOyBt RBIgbY47YOJ8kC94Jf85vNB cqPIgb6iofCn3IkNiNHVnZQ S4sLtkADase9FpITNqW85ad ZOfv8I4 DMKegTncsGKdKtEbjHS1zO4 kFQevhkogt9wzxdorUct2ai 41rELix3B9kOF7Z6HhgvG7C GJvbGQg TsspiACHyW8glrqqa5nnpcq vQrJqKHMxFEq0FRc6WWBwjS veDcWzWI96LNA9PRJvgbIfE 2FsLWFs cBryFnM7o2S3Fd1AE7KPWbm rV0AHSYYBYSrpbHF+PC90cj 49E1EuHemoKhc6PQLpWWQ6m AN8oI9e OITiAUmyp2R6nEP5T3LbhsF nan4lr1iqVZKaNZarL90heG Jjv9F4KIQsqPH8GQUqdEeoB iBzaG93 Oyc+VNKhdTzlj4FeScunu9n cy8gpsLr2VfpwKZVtaxPltQ ssKJC6q1ObMi9fHTAkoXA7k QB2vE6f NvKqPkT9ELbiV873KfPjcDZ wInglB55xW3EuvGY+PHRyPj r7WTCcvIawMD3aL5MbPAKcj mctbGVm rNvbNA8dFELttozbIZUlgE2 zDGRuI7m0OwTzXmD5XNmuG5 LdWUXhlwwvXb71hE8tPlFpO rI2EUos X5EbezI0MKEtzYSdKAuaDVU 6W26fm4E9YBAkQHTzDPU9vF L7mX9udHjuqnxgwWHhuOjox mVydGlj XAbtMOjyF648BLWhxJwcWmF vZGluZyBEYXRlOiAgMDcvMj kvMjAyNDwvdGQ+IRQuUZA3i WxlPSAn oTCpKEpmFr0zeMidjQtmYX5 hRLCqvdaaJOUfeY5vVDByqW KkbAufUM8bNNVbipflr425Q iAxMHB0 YIDsyKNyC2EmgA0kBqZfJUA yXBPcL4HayWCxFWmtM462WZ hdVmQ0PPMbyhMeE9DhYVSxr WduOiB0 o6P4Lf1Pf0VsxkpxZ9IdaNH xKvOmVfzzLTf6A8ZhUjmgpJ I+WR26CEZlLD04ZPx4UAO0l WxlPSdi SPHqJ1SteA4jItTsOBEiLQT kOyc+PHRhYmxlIHdpZHRoPS wcDYAgVnIybLovRS6hOn8iK GVyLWNv kAiukIPxZxHum6zzNYZoIUi sZH3qsPfxH9MzjFP2IESnp7 z5Nq91D43tS5LncJQ+PGNvb GL9zFR1 zB9cLyYzWiW8FEkcE870UiP mhCYyZvgak0wmq3llyNk8Yx W9MNHchwBgcGgnNGJ1r5XjX b91V22w IHdpZHRoPSIxNSUiIHZhbGl srd1glB8tGa8+JQXobYU6xF W9dY0hSsAdEgA8UImaE879O nRvcCIv Kmelf7wcs0bmiYd4EsFaJCU irbCseIehZIT4a2BmQr89Q8 KwwTcfe1BwEzn6dj32eQXce 0O4rOC4 W0YyOTIiawkitXPwmIjnZF6 wQJQibwsyUAYdgW7rNKLhJ8 g3ReYwWhZ7RZrwY7RlsqI4I GJvbGQg TAVhoHDKaY4jahdkf5pldic tYgFjETXtYGw6CVh7MSXvsU ebCjYxXMK4CzG8KZJ4qYCrz Z5znMcl xqyxuC3jGsg+LQQ7fYRijBD XRL4oAckqaAA+MTRwHOM6rE xfOVciIQIvcI5rHSFkS6l3R iAwLjA1 AOphL2ZbnsR4HAZgwLEpLNK ciIKAwZ1comnfc6lmvwdvFx IpYZXrUEb6HTz0YVHpoQpaX iBsZWZ0 RlZ0LXI6fYZljZ2oqYntnzz chC3jHlm+KevhsLsoOPL3AT s5H4SuRgh1ZDFuiYdgZR6on GFkZGlu Jt2wkVcwuZotFF9aXKZsxnl ks691ZwDfq3ofUTUagIBxWN viATO6D96cz5C4DFNgWSEeU GK4kVY0 tB1znGcfodsfbLSieWethzZ byCasLNxuMRqqD786ZAVeiB snTxZrKUn0Z7PlVbb7PUZjy SmyJQ7u zCHvQKnjJa0jzFepgYdwAX9 vELHqskugv178FeKri4anWP OctQWwHFybFSW1V68en6E0X CMwMDAw HLO0pKT6gI0xtGzhwjrqaAX mdDsgdmVydGljYWwtYWxpZ2 17THCpcRbkOeXibXu1E3CoQ va7SDQk mTyrSW9ddEThVUqhMj6epPe jdBsjBD1dNPChocext686Dw Zsn9agROOrmTAwJNgwRHA3V 90zc8J1 EMTfTWWlJFU5mSY8lE4rcWm nbjogbGVmdDsgdmVydGljYW cuDZpwS521UKGidCjuBlCrk GllbnQg LAzoJBv8J1OzMbpugAW+PC9 3BBKlIQ57nITorNTzn1fzwB d4UaZwKTFuRST9yXkpEOpid 3JkZXIt K48uhNRnu6S5YJZkbFwrjWZ qOcLznCZ1kL7sYJqgfnfte4 yjagvhXyexf9xkww09hG11G 29sIHdp ZHRoPSIzMCUiIHZhbGlnbj0 hfH4aIm6+TILgcUF0eKZ6vO 2wBOTwIwN4UPsqO348UxEnt CIvPjxj d4nji8zquWh6ApI1TCLbgrX ulQwbZZK3h5ZqGd13D77hOC dpZHRoPSIyMCUiIHZhbGlnb y5juX9c Ii8+STXnmJF7vNK3oC8dIjM aKrX2TElyV660McWfwUDuFb sbM15jY2PwqPP+LWQbPci7W CBzdHls ON0blITdKDbcWj2oCRR5UsG hNgCaVYhoX2DmPLKuqvanvf zskED8LEZfLPHfbV95Fm4cd DogMTBw mSZJmJ7kesmyr2evfeboXcI nOKDwXOl6YGk5WKOcpYtzJg JkZBN4OwI9OND5sILnfW1jt Glnbjog rA2cO3OdWYFyuqzkBd86rA2 vUoWeZqX3CQztAug+TUNDQU 5OLCBIRUFUSEVSIEVMSVpBQ kVUSDwv dGQ+QEQmFZD7fJbyLBdoEIV opK3oDUGpT5u8BtYwRdC9BK lcB5DpWREabesdUd16rN9nS iAwLjA1 JEmiG4BjaoQ7EQMjyHXnWYb fEFH5L57rp0T7TURxZKWiMZ O1fAO9lY7tzDfqhcyvfDFym DsgdmVy rPqwLAqnTVkrB966ZEDldNn kBhEjRdT7PmN0ZOC2W5SlNb w5URIdbBqnEH0glFHrEXpsI j8ixUxy qMhlMA6bIIQyjwdfHDOkdH3 jKIIokPEoyEbhVR6cLHHdqf luz053QmXkGTR3NZJsvMSvI 2RjkX8x KwOyVJMsNSJmD9AurQXcMGc cY582KVtjHuW8ZJWhguLvP7 IwQQUfgEvdAwW9t3U9Uv5aT CBZZWFy czwvdGQ+HVTxLLK7oTteTSl kMFNurD6rQDWoL0c1CzCfDu L1LDzsO4BpYWVtmxteOm39n Q7sSnXx HpZ9MHbaO0LlupM5XJBidEZ lQOkmYNP9F42wu9K8TWZzJP VsHMJ5zXR9oA5wrAfewlnqm GVmdDsg anMbpAhzQWdyUNqwZ290GGP vcDsnPkZFTUFMRTwvdGQ+PH MwUUT3cJrpZReiUXVnkO3mL HCvW0n0 BkFcCrG5LGyjQ4MpMRWchem pUq10hR3oCkUxGoZ5DWetM5 IaghW6UBZyyMJbPYkcCMM5Q 97du9Y1 FXDzBYUcRBJ9jXF7iP8pzVg nbjogbGVmdDsgdmVydGljYW ygLBifP707MQDjwFrpQhWmI CPgJL5c eTwvdGQ+XP62ii40L4JgEbo hNfo8IXWzMBF1dQI9mD2fXS EdQKzei1P6eQH2L8QxpaOug e6ng1cj FFGqPTvqX79crQVlj4N1TAA ngCI7YKDowRbkGfNfyS78Mi c+AOXlvVrwo1ZmXpfeo1ads 6nngNl8 PpSgMCKkuzQxaXcrTRQ5q0D uEp26K35eWPolUKGuQHZiWW JnWBDuxRrzhp0jdW0eHo4+P GNvbCB3 aSS4mV5rFhMiEfR8CJtnQ97 1RwRsxEEgDisrw7kzw1zsaU m7PzQzCBKhvpVazLaeQXW9h 3BeFf48 B0VylQznu1DeItc8fu10rUB qk4I6iBZ7N4KlHMSelvrhaP PdnGaeWH1sNMIqqvohNVBom D8jXGSi J6s1GeOyTdX4XPvkI1MiivZ 2DBHloNIcOGHdnFMDmA9jnd gms5hchngcIrEgMIYjHXw0V Gj0LYWy gKlpZuFlRWL7FlZ4VAF1wJU nkK7dwOdedktukR7mSct+UG a7h7qaeDUzZU0tzMA5SX13R Z24oTYj u4S0xWX9G2QoFNJggqvqtya eyFC1CKAuSKJzyG20Fo0jlM qcTq2jGERiSBP1YUWzhQXcG 8EatO8a EyMbIWCqLFBrM1MymYFbIBz qW569YHfhMfE7TWWicjPsB4 ZiKFWrdLgsBlG8o3S1Mr7ZP N96JE63 FS84iTOum8H7tJO5F7CwWMW kymdldfqmqLN2UYAkHTZhtE 32Nn3beBxxRz7eCKWkHHN7J FRpbWVz C1PyfD1iXxJuXNFbBODrS1Z akZFdJCqyP512SYcnJrL0WI RgioKnX7KxCNGngMhcSqO1o 9S0Pw1E Xd89YM90RW04dPQkg8L0bNO 0J5XtUTUkdgwfkotcmLC8JL QcLPCcrI96Fg1cxWouJf8yQ CAxMHB0 IUDnmCRoI0HqwL6oYsKgJDR vYLGjS7LppAPuPFkfE415CF knHaJ1GVQtknQyS9SvMGTla WduOiB0 i0W3Ek8MJTzibom5V5AkKkk vdHI+AL84WWZlCW00wPRkiK Lue7jwkLk1NeHjJNRnQPB7i WxlPSdi b3J (more content not included)... [facility] Coding Summary HTMLBase 64 JvpmqssfRDi3tDd+PGhlYWQ +PG4OUTDjB44xiHOifP3pP0 NMTElOSywgQVBQTElOSyIgb hQrGI6owLAjGTIn IC8+BT5eNFWiFxddvKSky0A 9sMQ1N55asc6yJRcxoRZ6OV EsUaSkgffag5ssdXh9SXvnH mluOyBt BQXrcF60KAQ7uM96Ck00kJF ffOQdg0umfId2EqGsRJHqDS X8vGxmBYmdm1IwNEYgY48zn OCvb3A8 TAKajLfphPUrNyWybAW8uW5 kQAkjeqwof4nyjtfxLco8yz 53yBXkv3O3rJG8Z1JzfhX8K GJvbGQg WfjjyVQHsP2fnzbcf2mfbdk jQuZxWRToJCh6GYy4TNWvjT lbXtDcAC54RRQ4YJQtomQkX 2FsLWFs yTtjObZ3r9C8Gv7QP0YPGrb wO3DFQJTSZYtjrRE+PC90cj 80F4ReGxybXmj1MEAtZRN0r DI2mH0k FOEkIXaki1F8wBY3O8GhysE zlz4co1gtLELxXLohT41npA Dcj8K5YQKdlTM2UTTmrJgzQ iBzaG93 Oyc+MVVwfTxnv9GlYqzwj7w cy5nydNk1VoxxRKBuxrWlhY bzELP4u9LuFd3bYMZcgJC1j RU4gF1u TjGpAsY8EVhcB227NvRydJR fAosiR06yC4UsiKQ+PHRyPj q3GNEepRnnTA8yQ7HlJFOfb mctbGVm qXceIV6lHXUxrigqAVPcmM3 zGVXzD9v9DoUoRjQ5XWazW6 MrGFXrnxjwRq03uH5iBhPkU jM8AHun W8HneiM6IINzxRNrMKslFLD 8B41om5Q5FZGzZFMiNGA8uJ Q0rQ1knMmzulxrlCVbyInqj mVydGlj LAubFKmdB199DEFyrYpuUqJ vZGluZyBEYXRlOiAgMDcvMj kvMjAyNDwvdGQ+RKMoJJF9i WxlPSAn mPJzUOwcCw3oaUezhHuoII6 fMHLlvbhnGYMvfM2fPZOzgK KdbZveCE7xXMTqeynsi852K iAxMHB0 PTGsnGXeJ1XpnS2jFqBoNHA pPVLlP9LcwJPsGJajL012CV vtSrT8KXFsehOjU9VwPVAqp WduOiB0 m5V4Va2Fv7FjockmW0FabVM wCzIhLsnySTa4T6DgZzfxnU I+HV45YSXhCQ52CPv3PJZ6y WxlPSdi GVGsL7KfuK4nZeQqIZJsSED kOyc+PHRhYmxlIHdpZHRoPS teUXPvJoEpiZewQA5uCs7vF GVyLWNv wRmocJBoFtKwt5gbUSLxBKk aSZ7bxJguN3NlkAT7SKKal0 b5Hy10G77sO5EzkFT+PGNvb JF3lVM3 pT0pQjDhJvZ4XBwmK969CoR dfMFwSowpd3hdr8kngIv9Kp Q7QWMvexWqqWblAZC1b5XiK x27B83m IHdpZHRoPSIxNSUiIHZhbGl uho8unL4hOq9+JIAkmKB4qS M5pR4tLbHzQxV5PZjiF231W nRvcCIv Wboqq1znd6zbjWy5JkMwZRK rylMjcNzeUOJ6k7DnWs72S2 IjhZshz2HuKnn6zy42rPOqc 9V7dVA8 X2RdLTFiqcgriSYxnUjlRD5 nQYHbxtknXOXiiS8lECXsN6 r3JsPsRlA7HTtnI3RhqvD8T GJvbGQg FYMymVVEaX8rjbwyv9nyelf uWfExEMZbXJz2JYa0UNMsfY tcEdKjTOL6CbY9WVO3cEFoa O4arVpt uyoumW0eXvr+MOL9uCLfdKO DCQ8hYersqSZ+LCOjNZK7zG xpDYklWFCpaW8gUPVdP2c1Y iAwLjA1 WBnpE4DsfxY3YIYgjUYiQHV phOCLrG3epiypv7ajskzsYy KlGRDmEPl1BJg7PCFvtLpxG iBsZWZ0 AhJ8CSO5jPBveG3pvLtnvym qbV1xMug+WuiwuFspFRZ7QY n2D6SlWqg7RLZayDsoOS7ou GFkZGlu Ix4daMmmjLejHE2iMDWninp dw989WkDni2atQUAlbSXzRP usHGO0E41jh6L3NLUfZLEcT EE0hVO5 uA4juJwhhpebuSXtbEduzrW lyKnmZWggNHixW013FYEjpI vnFqYsAVx9H3ZpLmv6VIEqf ZqdYK4i dGYuIXeuTj7fzRarfTxqEC8 wNNDbwweld260VvCch0fbBD WgeWKjPFbxGYR1L49yz3N1B CMwMDAw WAU8sLB9cJ6yjRuysnmapPC mdDsgdmVydGljYWwtYWxpZ2 57PRVsaFwiHpIpsBr5M9QaT dr7YRVk vIozOL3whGWhBQciBn1xcQu pvEziLY7aPIPllrjcs696Ag Pie8ioIEFmbXIaLNgwOJP9D 91mp5K4 ZVPcBHVlDDG7fOT7vK7nkFu nbjogbGVmdDsgdmVydGljYW kpJKppC762UPFfgUirAyIsh GllbnQg QOmyVNn6V4LsCalybSK+PC9 0JVGnMX35wGUsjLMbj3hilG l9TqQgYVZnOIP5cTtzGVevk 3JkZXIt V91tgKOju6V2GOUkrHyaaJG wJdDcgAZ3fI1cWRbajuacl9 gogcesDphlb5kniq89fY90Q 29sIHdp ZHRoPSIzMCUiIHZhbGlnbj0 kgZ5bFa0+PMSjkNV6nLJ8xO 8xNFHbPaF2MPxvL861YrRqt CIvPjxj y6ref0jzlWa1UrF0NLRsklW chVhpTST8i4OvYb80A09kUB dpZHRoPSIyMCUiIHZhbGlnb d0qoU0h Ii8+QVOuyYB9gFU7kS9fZaX pQuD9NMzsT695XmJtySPjIn atH45wG2UguRY+UNNcGyx1Y CBzdHls AJ8vbDRuAQmjYt9rCZI5TsX ePfUcMEyoV9WtVOVlmyycai uleWI8XWJaJCSdyH38Gg3bx DogMTBw cIIAnL8polrrl1kmksldIiK iHZHgKVz4MNo9GPWqqJzfMu PxPTE6XfQ7FAR8wSCnaY2al Glnbjog dY7eV8TkQGZbavkeVi94tX4 qXeDvMuD7UEdkLky+TUNDQU 5OLCBIRUFUSEVSIEVMSVpBQ kVUSDwv dGQ+YVOeZMZ9tKmgSSnlVRK msT9iHEWzO2q7EmZmFhZ1CF htV3VnJLJunkchKw99kJ8zY iAwLjA1 ERdrF7MkyzH0RPAmpDIiBPn cKQB1N68xc3I5BKRxILIpVI K6nBM4fW9yeEblvxfskBQnr DsgdmVy eRptCVuoBOvfP805NMZsdIk kCeSbAvP1YqL8RQE6Z1AkNd k9ICAuaCwsJU4ppFVcBZcfX z6rnTwv yIbsHC0iFFMwzbecFEKwgX1 cOKOvbBKsvDdkGN4dUEYhbn xwo423OnYsEAK6RSIaiASdA 6AkmA5d GhDcMARnCKNhE7GqdQUuAMu kX208LIwmJxY0MWRtctWkH1 UaMVOzmNlvNnT6d4T9Mh1nP CBZZWFy czwvdGQ+OTGvVKB4kFlsFRs oRRRipB7lPKHxH4q8QjBrBb Y3VJzmM1MzOKQxrxfaYz81l T1vQuFn EgW5HOjyV3BqmmQ2VBMtpCS qNAdtHRA8I11pm9A3YOFxFQ EmHYC8mCC5mY2cfTouzergh GVmdDsg wqHzoAbyIIofWZtaQ937PNZ vcDsnPkZFTUFMRTwvdGQ+PH OdPXX9aCacGAotCRUgnJ1tM YTfR1q5 KhNhAsL8JJycL0BjRLGxeko iEm69sN2fMmQcSwP7FQglF8 QyewP2FEJalANuZLotBHV1B 01lf1H6 VYHfKFWvBRH4aBP1iB8axXr nbjogbGVmdDsgdmVydGljYW uyYUcpA908LZRwkAhtCsBkE SVqOZ6z eTwvdGQ+UX64iu57G5OkMhs lGhi2ADPqSEV0rXE5nI2gRB GvOSdhw8H5mHD3B6SpsqFsu h1be7ni YKNbAUnkK73psKZau1R2XQO ppEV5VKHamSuyGeMdjI20Tw c+ECJevFurm7RuGvzkc3izy 2aisLs7 ZaJvNUXzwnTqsZchWYZ0i7Z yDb77M94xSXnoLSTdCQBoCD UbIZHxvBhndr1ywN1oPy7+P GNvbCB3 vUD9jD5gBnWeMqG5EKcyF79 1AwWjkUGrLbmlm9nvm4rdqL h3GcOtYIRhykWagMoaBKC2y 6MhXx55 V2MjeUtpi1VeAjf9ef14rZV qe6D1aHA2T5CeUBEhxpzcpA ZzgQlbIW2oHSWifvreLYFfk M5eYXMa H4d5TwAtVmF0XGhnH0TiwjJ 8WPFowGHhWFVqhJDXlM0way phj4eqzppjFyNfHJVvNZs7A Zy8CZZk pCkqAyJvVNO8CmP9WIJ9mKG ozC3tdErrnmqjiB5dJnc+UG r4u5ripHVgUL3xhXC2BS00R O91bXJm b5U2wBL0D2YuKKCqnmxkoun lwHH2PAQkWNYpoD27Fq0tyK deUi3lEMGlBYY2RNYceUUkT 4IlmE6v VjMnUQYvTTBsS8DmpRZxBSh pP345YIdhKdV0GHNmbeBkO3 ZxFAOlrXbqNdC9b7X1Kz4GV Z92RV83 QE20dUCun8F2qVO2Q5EjJGO rrnvxsfjwcMZ1RNIiKVHbyG 60Yb8tgPltVo9mKSUhCTD8R FRpbWVz U0QerQ2bPdOlSEBnNZLfH3S viGUkVHauK326NTdgPuL2EE PvbhKpP6PbXWCsoQolFsP0y 5J9Dr4G Pd99ST75NR24vQBqz5P1pKW 9I4LxXZOrcizpimvptYO9CY FeVVDxeQ07Yu5zqBnkAn7xX CAxMHB0 HXFtfDSxK1NekY9cRnArWBB bXLCoF0LjvDOeWKyfW594GZ gyKwI6BGFzkcGvP7OrVELle WduOiB0 v8N5Nc4BKByxghy7L4LnGfh vdHI+JC86SMDcUD94aWBulR Bnh2cewGy0BvOsNVVbFXY4y WxlPSdi b3J (more content not included)... [facility] Provider Orderson 11-09-2023 Provider Orders [id number]#1.00OT GTIFF [facility] Chlamydia/GC Amplification L Con 11-04-2023 Chlamydia trachomatis, AC LC Negative Invalid Interpretation Code Negative [facility] Comment on above: Performed By: #### 7 [id number] #### [facility] (DEFAULT) [address] [place] [address] Neisseria gonorrhoeae, AC LC Negative Invalid Interpretation Code Negative [facility] Comment on above: Result Comment: Perf ormed At: =G [facility] [address] [place], [place] [id number] Ivan Calvin MD Ph:[phone] Performed By: #### 7 [id number] #### [facility] (DEFAULT) [address] [place] [address] Consent Formson 11-03-2023 Consent Forms [id number] [facility] ED Note-Nursingon 11-03-2023 ED Note-Nursing Fluconazole 150mg ta b called into [facility] Patient contacted and notified of the results of her culture and the prescription that was sent for her. Instructions on how to take the medication was given, patient verbalized understanding [facility] .Auto Diff 1on 11-02-[address] [facility] % 9 % Normal 04-29 [facility] Comment on above: Performed By: #### 1 [id number] #### [facility] (DEFAULT) [address] [place] [address] Baso Abs# 0.0 x10 Normal 0.0-0.2 [facility] Comment on above: Performed By: #### 1 [id number] #### [facility] (DEFAULT) [address] [place] [address] Basophils/100 WBC (Bld) 0.2 % Normal 0.2-2.0 [facility] Comment on above: Performed By: #### 1 [id number] #### [facility] (DEFAULT) [address] [place] [address] Eos Abs# 0.3 x10 Normal 0.0-0.4 [facility] Comment on above: Performed By: #### 1 [id number] #### [facility] (DEFAULT) [address] [place] [address] Eosinophils/100 WBC (Bld) 9.0 % High 0.9-4.0 [facility] Comment on above: Performed By: #### 1 [id number], [id number] #### [facility] (DEFAULT) [address] [place] [address] Lymph Abs# 0.4 x10 Low 1.3-2.9 [facility] Comment on above: Performed By: #### 1 [id number], [id number], [id number] #### [facility] (DEFAULT) [address] [place] [address] Lymphocytes/100 WBC (Bld) 12 % Low 14-48 [facility] Comment on above: Performed By: #### 1 [id number], [id number] #### [facility] (DEFAULT) [address] [place] [address] [facility] Abs# 0.3 x10 Normal 0.0-0.8 [facility] Comment on above: Performed By: #### 1 [id number], [id number], [id number] #### [facility] (DEFAULT) [address] [place] [address] Neut Abs# 2.4 x10 Normal 1.5-9.2 [facility] Comment on above: Performed By: #### 1 [id number], [id number], [id number] #### [facility] (DEFAULT) [address] [place] [address] Neutrophils/100 WBC (Bld) 70 % Normal 44-88 [facility] Comment on above: Performed By: #### 1 [id number], [id number], [id number] #### [facility] (DEFAULT) [address] [place] [address] C Genitalon 11-02-2023 C Genital Heavy growth of Yeas t No CARLOS performed on this organism No growth of GC at 3 days. 4+ Gram Positive Rods Few Yeast No WBC's seen. Gram Negative Diplococci not seen. Normal [facility] Comment on above: Performed By: #### 7 [id number] #### [facility] (DEFAULT) [address] [place] [address] CBC w/ Auto Diffon 4 Erythrocyte distribution width (RBC) [Ratio] 13.7 % Normal 11.5-15.0 [facility] Comment on above: Performed By: #### 1 [id number], [id number] #### [facility] (DEFAULT) [address] [place] [address] Hematocrit (Bld) [Volume fraction] 40.5 % High 33.7-40.4 [facility] Comment on above: Performed By: #### 1 [id number], [id number], [id number] #### [facility] (DEFAULT) [address] [place] [address] Hemoglobin (Bld) [Mass/Vol] 13.7 g/dL Normal 11.3-15.9 [facility] Comment on above: Performed By: #### 1 [id number], [id number], [id number] #### [facility] (DEFAULT) [address] [place] [address] Man Diff? Auto Invalid Interpretation Code [facility] Comment on above: Performed By: #### 1 [id number], [id number], [id number] #### [facility] (DEFAULT) [address] [place] [address] 34482 MCH (RBC) [Entitic mass] 29 pg Normal 24-34 [facility] Comment on above: Performed By: #### 1 [id number], [id number], [id number] #### [facility] (DEFAULT) [address] [place] [address] 99468 MCHC (RBC) [Mass/Vol] 34 g/dL Normal 26-37 [facility] Comment on above: Performed By: #### 1 [id number], [id number], [id number] #### [facility] (DEFAULT) [address] [place] [address] 42268 MCV (RBC) [Entitic vol] 85 fL Normal 81-100 [facility] Comment on above: Performed By: #### 1 [id number], 9828495, [id number] #### [facility] (DEFAULT) [address] [place] [address] 96324 Platelet 106 x10 Low 138-427 [facility] Comment on above: Performed By: #### 1 [id number], 6833730, 0296382 #### [facility] (DEFAULT) [address] [place] [address] 85421 Platelet mean volume (Bld) [Entitic vol] 7.0 fL Normal 6.3-10.2 [facility] Comment on above: Performed By: #### 1 [id number], 8327596, 8741415 #### [facility] (DEFAULT) [address] [place] [address] 44473 RBC 4.74 x10 Normal 3.70-5.30 [facility] Comment on above: Performed By: #### 1 [id number], [id number], [id number] #### [facility] (DEFAULT) [address] [place] [address] 18139 WBC 3.5 x10 Normal 3.5-10.5 [facility] Comment on above: Performed By: #### 1 [id number], 7897258, 0717086 #### [facility] (DEFAULT) [address] [place] [address] Standardon 11-02-2023 eGFR Non AA >60 Invalid Interpretation Code [facility] Comment on above: Performed By: #### 1 [id number], 9869512, [id number] #### [facility] (DEFAULT) [address] [place] [address] 02428 eGFR AA >60 Invalid Interpretation Code [facility] Comment on above: Performed By: #### 1 [id number], 8842751, [id number] #### [facility] (DEFAULT) [address] [place] [address] 64187 Albumin [Mass/Vol] 4.1 g/dL Normal 3.5-5.0 [facility] Comment on above: Performed By: #### 1 [id number], 6925710, 8790429 #### [facility] (DEFAULT) [address] [place] [address] 57003 Albumin/Globulin [Mass ratio] 1.7 {ratio} Normal 1.4-2.6 [facility] Comment on above: Performed By: #### 1 [id number], 5612457, 8289480 #### [facility] (DEFAULT) [address] [place] [address] Alk Phos 40 IU/L Normal 32-91 [facility] Comment on above: Performed By: #### 1 [id number], 4302208, 7118320 #### [facility] (DEFAULT) [address] [place] [address] ALT [Catalytic activity/Vol] 20.0 U/L Normal 14.0-54.0 [facility] Comment on above: Performed By: #### 1 [id number], 5147663, 8077855 #### [facility] (DEFAULT) [address] [place] [address] Anion gap [Moles/Vol] 9.5 mmol/L Normal 5.0-19.0 [facility] Comment on above: Performed By: #### 1 [id number], 9916243, 3744160 #### [facility] (DEFAULT) [address] [place] [address] AST [Catalytic activity/Vol] 19 U/L Normal 15-41 [facility] Comment on above: Performed By: #### 1 [id number], 8058147, 0350293 #### [facility] (DEFAULT) [address] [place] [address] 30574 Bili Total 0.7 mg/dL Normal 0.3-1.2 [facility] Comment on above: Performed By: #### 1 8873564, 1720096, 6179340 #### [facility] (DEFAULT) [address] [place] [address] 47361 Calcium [Mass/Vol] 8.4 mg/dL Low 8.9-10.3 [facility] Comment on above: Performed By: #### 1 2792488, 3368758, 9557620 #### [facility] (DEFAULT) [address] [place] [address] 75199 Chloride [Moles/Vol] 109 mmol/L Normal 101-111 [facility] Comment on above: Performed By: #### 1 [id number], 3730336, 0735539 #### [facility] (DEFAULT) [address] [place] [address] 57969 CO2 [Moles/Vol] 21 mmol/L Normal 21-32 [facility] Comment on above: Performed By: #### 1 [id number], 9806029, 8083891 #### [facility] (DEFAULT) [address] [place] [address] 95193 Creatinine [Mass/Vol] 0.71 mg/dL Normal 0.60-1.30 [facility] Comment on above: Performed By: #### 1 [id number], 7439467, 8948324 #### [facility] (DEFAULT) [address] [place] [address] 00043 Globulin (S) [Mass/Vol] 2.4 g/dL Normal 1.5-4.3 [facility] Comment on above: Performed By: #### 1 3685662, 2732505, 3955832 #### [facility] (DEFAULT) [address] [place] [address] 97773 Glucose [Mass/Vol] 95.0 mg/dL Normal 74.0-118.0 [facility] Comment on above: Performed By: #### 1 [id number], 2244048, 3049711 #### [facility] (DEFAULT) [address] [place] [address] 95722 Osmolality 270 mOsm/L Invalid Interpretation Code [facility] Comment on above: Performed By: #### 1 [id number], 8789386, 1315005 #### [facility] (DEFAULT) [address] [place] [address] 74831 Potassium [Moles/Vol] 3.5 mmol/L Low 3.6-5.1 [facility] Comment on above: Performed By: #### 1 [id number], 6293153, 2710401 #### [facility] (DEFAULT) [address] [place] [address] 51130 Protein [Mass/Vol] 6.5 g/dL Normal 6.5-8.1 [facility] Comment on above: Performed By: #### 1 [id number], 5445619, 4896537 #### [facility] (DEFAULT) [address] [place] [address] Sodium [Moles/Vol] 136.0 mmol/L Normal 136.0-144.0 [facility] Comment on above: Performed By: #### 1 7810249, 9671303, 8486298 #### [facility] (DEFAULT) [address] [place] [address] 66536 Urea nitrogen [Mass/Vol] 7 mg/dL Low 8-26 [facility] Comment on above: Performed By: #### 1 6421289, 2176314, 8716749 #### [facility] (DEFAULT) [address] [place] [address] 62482 Urea nitrogen/Creatinine [Mass ratio] 9.8 mg/mg Normal 4.6-16.2 [facility] Comment on above: Performed By: #### 1 3289035, 0820866, 5300672 #### [facility] (DEFAULT) [address] [place] [address] Abdomen/Pelvis w/ Contras ton 11-02-2023 CT [...] No acute intra-abdominal pathology. Final Dictated by: aKela Monteiro DO Dictated DT/TM: 11/02/23 9:43 Signed (Electronic Signature): Kaela Monteiro DO 11/02/23 3:37 pm Technologist: Adama DUFFY [facility] ED Clinical Summaryon 2023 ED Clinical Summary [facility] Emergency Department [address] [place] [address] ED Clinical Summary PERSON INFORMATION Name: JAZ SANDERS Age: 28 Years Sex: FEMALE : 1995 MRN: Acct#: Visit Reason: Abdominal pain; Nausea; FLANK/HIP PAIN, FEVER Arrival: 11/02/2023 07:57:28 Discharge: 11/02/2023 13:31:00 LOS: 000 05:34 Check In: 11/02/2023 07:57:28 Checkout:11/02/2023 13:31:00 Address: [facility] [address] PCP: Amanda Ford CNP PROVIDER INFORMATION Provider [...] Follow-Up: With: Address: When: Amanda Ford CNP [address] [place] [address] Within 3 to 5 days DIAGNOSIS: 1:Hip pain Patient Understands: Yes - Patient/family/caregive r verbalizes understanding of instructions given Comment: [facility] ED Patient Summaryon 024 ED Patient Summary [facility] Emergency Department [address] [place] [address] PATIENT DISCHARGE INSTRUCTIONS Patient Information Name: JAZ SANDERS Age: 28 Years Date of : 1995 [facility]: [id number] Reason For Visit: Abdominal pain; Nausea; FLANK/HIP PAIN, FEVER Arrival Time: 11/02/2023 07:57:28 Primary Care Physician: Amanda Ford CNP Attending Physician: Narda Phillips MD Comment: Visit Diagnosis: Diagnoses This Visit Abdominal pain ([id number]) Hip pain (M25.559) Nausea ([id number] ) The Pharmacy at [facility] is open Tuesday through Tuesday from 9A [...] alcohol and/or drug addiction problems; contact the [facility] 08/11 Crisis Hotline -Blms [id number] xr [phone]. If you received any narcotics, sedation, or [...] documents With: Address: When: Amanda Ford CNP [address] [place] [address] Within 3 to 5 days Medication Information: The exam and treatment you received today in the [facility] Emergency Department were for an urgent problem and are not intended as complete care. It is important for you to follow up with a doctor, nurse practitioner, or physician?s dental assistant teacher for ongoing care. If your symptoms become [...] so we can reach you if necessary. [facility] Emergency Department has provided you with a complete list of medications post discharge. Please inform your social media marketing analyst/provider of your visit and for further instruction on these medications. Any specific questions regarding your chronic medications and dosages should be discussed with your primary care physician(s) and/or pharmacist. New Medications [facility] [address] [place], [place] [id number], [phone] cyclobenzaprine (cyclobenzaprine 10 mg oral tablet) 1 [...] 0. lidocaine topic (more content not included)... [facility] Extra Green11-02-2023 Tube Collected Yes Invalid Interpretation Code [facility] Comment on above: Performed By: #### 1 [id number], 2936618, 8075366 #### [facility] (DEFAULT) [address] [place] [address] 91138 Test Urine 1 U Preg Negative [facility] Comment on above: Performed By: #### 7 [id number] #### [facility] (DEFAULT) [address] [place] [address] 77589 U Preg Internal Control Pass [facility] Comment on above: Performed By: #### 7 [id number] #### [facility] (DEFAULT) [address] [place] [address] 64725 UA Hdgvx4sy 11-02-2023 UA Bacteria Trace [facility] Comment on above: Order Comment: Urina lysis Microscopic order added on by [employer] Expert Rules system. Performed By: #### 7 [id number] #### [facility] (DEFAULT) [address] [place] [address] 88563 UA Mucous 1+ [facility] Comment on above: Order Comment: Urina lysis Microscopic order added on by [employer] Rules system. Performed By: #### 7 [id number] #### [facility] (DEFAULT) [address] [place] [address] 75154 UA RBC None Seen [facility] Comment on above: Order Comment: Urina lysis Microscopic order added on by [employer] Rules system. Performed By: #### 7 [id number] #### [facility] (DEFAULT) [address] [place] [address] 06959 UA Squam Epi Few [facility] Comment on above: Order Comment: Urina lysis Microscopic order added on by [employer] Rules system. Performed By: #### 7 [id number] #### [facility] (DEFAULT) [address] [place] [address] 16504 UA WBC None Seen [facility] Comment on above: Order Comment: Urina lysis Microscopic order added on by [employer] Rules system. Performed By: #### 7 [id number] #### [facility] (DEFAULT) [address] [place] [address] 52982 UA w Culture if Ind Standard on 11-02-2023 Breakpoint UA [facility] Comment on above: Performed By: #### 7 [id number] #### [facility] (DEFAULT) [address] [place] [address] Color (U) Dark Yellow [facility] Comment on above: Performed By: #### 7 [id number] #### [facility] (DEFAULT) [address] [place] [address] 49828 Culture? Not Indicated Invalid Interpretation Code [facility] Comment on above: Result Comment: Resu lt created by rule GL_MAGR_ADD_UA_CULT Performed By: #### 7 [id number] #### [facility] (DEFAULT) [address] [place] [address] 15065 Glucose (U) [Mass/Vol] Negative [facility] Comment on above: Performed By: #### 7 [id number] #### [facility] (DEFAULT) [address] [place] [address] 22642 Ketones Ql (U) TRACE [facility] Comment on above: Performed By: #### 7 [id number] #### [facility] (DEFAULT) [address] [place] [address] 80787 Micro? Indicated Invalid Interpretation Code [facility] Comment on above: Result Comment: Resu lt created by rule GL_MAGR_ADD_UA_MICRO Performed By: #### 7 [id number] #### [facility] (DEFAULT) [address] [place] [address] 58311 UA Bilirubin MODERATE Abnormal [facility] Comment on above: Performed By: #### 7 135447 #### [facility] (DEFAULT) [address] [place] [address] 79884 UA Blood Negative Normal NEGATIVE [facility] Comment on above: Performed By: #### 7 [id number] #### [facility] (DEFAULT) [address] [place] [address] 54747 UA Clarity SL CLOUDY Abnormal CLEAR [facility] Comment on above: Performed By: #### 7 [id number] #### [facility] (DEFAULT) [address] [place] [address] 32970 UA Leuk Est Negative Normal NEGATIVE [facility] Comment on above: Performed By: #### 7 [id number] #### [facility] (DEFAULT) [address] [place] [address] 83652 UA Nitrite Negative Normal NEGATIVE [facility] Comment on above: Performed By: #### 7 [id number] #### [facility] (DEFAULT) [address] [place] [address] 87870 UA pH 6.0 Normal 5-8 [facility] Comment on above: Performed By: #### 7 [id number] #### [facility] (DEFAULT) [address] [place] [address] UA Protein 30 Abnormal NEGATIVE [facility] Comment on above: Performed By: #### 7 [id number] #### [facility] (DEFAULT) [address] [place] [address] 55023 UA Spec Grav >=1.030 Normal 1.001-1.035 [facility] Comment on above: Performed By: #### 7 [id number] #### [facility] (DEFAULT) [address] [place] [address] 73421 UA Urobilinogen 1.0 mg/dL Normal 0.2-1.0 [facility] Comment on above: Performed By: #### 7 [id number] #### [facility] (DEFAULT) [address] [place] [address] 58083 Urine Source Clean Catch Normal [facility] Comment on above: Performed By: #### 7 [id number] #### [facility] (DEFAULT) [address] [place] [address] Wet Mount.on 11-02-2023 Wet Mount. Negative Normal [facility] Comment on above: Performed By: #### 7 [id number] #### [facility] (DEFAULT) [address] [place] [address] 48169 Coding Summaryon 10-26-2023 Coding Summary HTMLBase 64 YbcktreuLSb1iVe+PGhlYWQ +NV9VGKQbO61jvLTjwS9kF1 NMTElOSywgQVBQTElOSyIgb vOjEB5miKHiDEDu IC8+YG0wQDUjYtccxCRlo8S 0oUW4M83ytv1zNVldkAT1EO QeOmLtfqhla2rgwRp4ULrwS mluOyBt RBNpmV18SJV1yH80Zc49zUI jgYGtp9kkqIa9SoJcUOFfQC H0xCdwRMsfg3ZtWZUiB99lm ATcq1I3 DMRojMgyoFNiQsUprAR2aX5 mVZffzeqad4bgrhkaKlo4cb 23uBPab0H8pIE0N9PvgwJ7S GJvbGQg GglflRSJsU8pmkvbx3blyiv rDwWrNGEpGNk3CQz8ZMQojZ xrIoSqUS82CYO4NOSyzsVkR 2FsLWFs pQxvAhR5w7K5Cb8IR9OZHmb qM8VBDMJDCYagdFM+PC90cj 23Z8EaAeqpCgx2XOFrVSU5b SZ5mI8c KTEyXAmkk5D0iWU8K6UrqaW kpq5iy3kxCVFrDSpgV19aaD Dzx2I9MDQckWQ3RFHwwCrkY iBzaG93 Oyc+HQLvmIncq6IuEvpfx4m fd4hqyTa3AglwKASkavTcwL xnQEH7x7RdLb9tNNIweAU5i DW4rK8o SzCaSmM1HJezD222TeYbqFK jNqocZ46gW4KvgJP+PHRyPj i7NDGavAuiQM2iC0SeMGWzd mctbGVm zIlgBJ4wQCEvgxnjYRIuxL5 pRIEvE0n7FdBbOxH3DQtkX3 NbDJAycdmkNj83dT2iIpLqJ lT2VCwm V7IlteT4SMPzbRAiWCeaOSL 0I72zz4T4UJYeDHFdYQT0wF C6rF8tvFlywghtbFFhhZemm mVydGlj VEazTCueU807JHOusJnrGvW vZGluZyBEYXRlOiAgMDcvMT AvMjAyNDwvdGQ+VMEgGTW1y WxlPSAn wFCyPLihNm6guLdppBnoPD5 xIHArpswuTGRnxC7nIMNkuT OvwJeuCX9kTFSvxiqba531C iAxMHB0 WQIeoSYxP0SnrA6qNuVwFLV dZJDqM8KipRGdHUeaA010VQ mkYoU7RQVujlVaH1XeLYInn WduOiB0 d5Q2Ra0Ds8IeyrqhP8FhiWP vBtMfUlrdSTt7K7CwGnebuF I+EC04IPDnLN75JFp6KGJ9a WxlPSdi BZBxS4KgnK8fMjMyTCNpVKO kOyc+PHRhYmxlIHdpZHRoPS tzWIDiOvArxMcxTJ0qFn2nE GVyLWNv sEbjfVQtIsLgc1zsDAMrDEs oVR9lsDwfF8IvjLC9BMZdg2 w2Ow43B13jH1XqlTK+PGNvb EU3mIW8 zW0uLeBxHsL4EFlkG527XwL bxGOhRjegt1kjo7lyhEu6Ho K9FSAfslBtgRmpEZI9y1IsK w61Q52d IHdpZHRoPSIxNSUiIHZhbGl edw2cxE6qWb2+GRYppIE8kX T7aC8nFqWqWqK0IWvvW366U nRvcCIv Xgceb2boc7hluIw9BrAfBEU oxsPecHruPPR5g5MqHg33V7 UxlZhfu9XgDrz3pd45hCDvl 1J7nKP5 Y6DkVGNnxrgzzQUsoGsaMI1 aOMCmemojCPSzhM9dFSHjI9 i6EbSpTnN3LPbsX3IbuzZ6W GJvbGQg LYHasQXEfF9taifdc8gkxfr jWeViHWCoWBd9WIr8BAFpnB xqFdDeNNV3EeX1HLE0eAEis T8poFmc mssrqX5cOtd+YTK8wXTwcMV RIL6kKjaepID+RLBcGPJ8yI erLSmrOJEjyC4mRKMoH0h3Z iAwLjA1 XRjpA1IiwcR4NFCizYNuOPD jkIDLnF6uctpsc4wnznatBx BmWFWlKDu5RLj0ZREfrPnlG iBsZWZ0 ZtN9LNB5hKFlwU2rwVlgewl ygA2oDrt+VfptlCzxOWO8BO s3V5QcTsi5PTUzgYwzQV7xf GFkZGlu Lj9whHxlxFtyJU1xCJIltcb vz044VkBau3gdDRRxtEWpVV ejIYN2U30br9K9HEFuDZFbZ CC2jQD5 fE4ecJvirzzrmWOcoXqaknB raIpuGBgyRHstZ746ZKStsA jhRnCwCYm9D1KvQwp1MVNhy AmeYR7d jDOvYActYq2tmXdvnAycWS6 tFUPixzrjz172OhUqa5uiTR DgqAYpIVnkSEA9Z10nq3L4T CMwMDAw QNP5wWV3tU1yaHvipyqhcGD mdDsgdmVydGljYWwtYWxpZ2 37LSNnzWcqIoTyfVi0F7GoL iv9BWAn bGtjSO9frOBlQHbxWl2stNu hhGdqES7dXTTcsxtyq256Ma Qge3zrNNNzpIRqCIxvLUU5A 65le3F6 JRLwKPNgEZA2vPK1kB0ojKt nbjogbGVmdDsgdmVydGljYW xwFLxdR247LCGdvTjsLdYzz GllbnQg WEqyDRz0K2TpTbkhtIJ+PC9 6SQFzHA15lHDqwWSju1npdS o7UxApVRIbXNP4pXzpVStex 3JkZXIt X99avGJfh5S2YZZkeYcffYL qAqOsmAJ2oU0hIRagmazir4 gtufgnNbddt0icef64kE76B 29sIHdp ZHRoPSIzMCUiIHZhbGlnbj0 znP9gHh6+OSElwUP0eUF6oV 2yNMXfCeL3RPstI935CmSsx CIvPjxj o1zwz6ieeFa5PpJ1MIUeobF vkZdoGHB7a8SrLl22W70tIT dpZHRoPSIyMCUiIHZhbGlnb q4qsQ5a Ii8+YUGrdAV5eDT2qL5mPpW bBdL4XEwoC442DoKazTPkLd pmO50bN1PbuZL+YCNuOpd8F CBzdHls NN5duJJvKGrdTw0gGDK5DqJ iXcXlYPnpI0YmLFYazxiyfn qzwBC4TXStQDIcwQ62Ks3uu DogMTBw dEJVwB9exbwzh9axgabqKaK fTAAwKUv2NPj3DMXicTljSw MpELF3YgD1LRM7uKApbA4pq Glnbjog nH1oC9OaHMSqjkzmTo70mG5 vQxLhLpJ0XNcrVjp+TUNDQU 5OLCBIRUFUSEVSIEVMSVpBQ kVUSDwv dGQ+WJChBKK7gNipNUnbDSL rvJ2hITZkD1c3OiLmLtJ9HO fbX9OdRFFxsyqjEh83fL4oJ iAwLjA1 UWfjT1VmotS6OCHeiFQrXIf dEMB2L97lb8H2HZFbMWUoYT W1eVP4sY3mqKigkvkydDFha DsgdmVy hBcuSYwvBJcwM243ZDPfkJf wNfWfBgC9WjG4JOW7I6BzWk n1GQOyoJriJZ0glTHyCUxhH z4ltSkb cSjmQA8vIHZoiozwWKUtcG1 mTWVbdFCaiZwlRB0mCHPlsu jtj722FjAnBBM6FHRjtKQaE 0FtnC6d FrOrZJHuFJCeM1FodPGaYKh jB615NVstThX7BZVcmgSrW4 MiMUEtoUlbKoC0k8H7Wp5lU CBZZWFy czwvdGQ+SKMuERL8kZtePCs fPKCgbZ2bOLFiQ6o5RcGvJc X7DSldL8NlZGJovulyVr60z C9bQlIs RgC6YIbeL4BetaH4BBKrpXZ kWTfoTLI5L50ml0C1LAQkJM ZpVLM5pRA8tQ8hdOodpuiae GVmdDsg hsZmoGwlVZwoEZquC242KOS vcDsnPkZFTUFMRTwvdGQ+PH CjIXX8lLupZSseMZUdtW4bW TWzS8z5 ZlMfUfE6XQbrI3UoFRKfbfd eZy95vX7mNyPuWjJ2WHxnB3 XhctS8UJYboZKiZGroNUR3B 25kw5W7 MRMwVPSbJEY0yFJ9oZ3jaFd nbjogbGVmdDsgdmVydGljYW ikJAmhY797XHRqtXbgFeQuI 3Vycmlu SjVOdQHlSNVpWQ94XC36CA4 2Y3XyCgmxnZFlbSV+PHRhYm xlIHdpZHRoPScxMDAlJyBzd WckST0b It5qGUZlUVBmqCrwlPNoUvV is2maNLBsPWlpTV9buQfqA1 VevIM1BLKrz1n1Vn78F85bW 3JvdXA+ NOFfcTH5iUY4wK3xZaJnQkT 8YXtpY911RfFluXMnQtoce9 hvy2pslXl7YkFiUYZptfBpr WduPSJ0 t4LdLk40Q89tZEssWNPtUJX mBGLxFZHwbWslud8ifU8wRp 8+HCZqtNW7tFL8eU6hNbEqG wW7RUig U264DmYanGOnFpfoJ62cK0Q vdXA+JHGeRtc3LDEdkMjdXV 9oxZUcWBujHq9jGIP2IpPkQ jIwMGlu Q3EfCNEumqzcmupryBY2YBE gXVYsiE59Su3cfStnKt2dSE QtQLL0DWErnLMlY6FpyE2wA iAjMDAw QXHqN6ErzLKgDVpgL029HCp iNyX8GJLbelFeV8UoRBCdzG ftFzV1m9B6Af7PtGbbyAYuP L7vCdYu MYx9Z1GcRjl5NLBdoUeoAI8 avMHrYRwsAk9agZbrqRyaLX 6xBJCikulax905GjGar7reO DEwcHQg YEcpCKQ9R99ug4Z2BKPjQTU eIIH9jXK6dR3ozRsywcnztZ VmdDsgdmVydGljYWwtYWxpZ 246IHRv hStlVsGJNto2G8UnSkw4DLV reYrzLC9awRSpHVjaNh9afF ogxVetLO5vSINsoncuj897M tRhc6cc EQHfsFFdEBizSAS9K48vl6Q 7FLWfDGMkDSM3hVH2gB6quR lnbjogbGVmdDsgdmVydGljY WwtYWxp S442ACDgtOawIb3CXja1F1E xJhp6KVQarMqkAW6ciOFiFL ryVc0taEpbkWbsLJ6zWAUvb zxex584 RmQab3rzAZWjuHTjPAzgZOH 4O51fn8U9LLEoOMFmRLN9vY I4kZ4cqBbgfozsvYGjlAchc mVydGlj MFxuOQihE240DXAtbYjhYqV heWVyOjwvdGQ+DR05uy57O4 RpVtmgGcf0PXEdAEC4nLF3d X2jYZFa [facility] (more content not included)... Normal [facility] Basophils Auto (Bld) [#/Vol] on 09-15-2023 Basophils (Bld) [#/Vol] 0.0 x10 0.0-0.2 [facility] Basophils/100 WBC Auto (Bld) on 09-15-2023 Basophils/100 WBC (Bld) 0.3 % 0.2-2.0 [facility] Eosinophils/100 WBC Auto (Bl d)on 09-15-2023 Eosinophils/100 WBC (Bld) 2.7 % 0.9-4.0 [facility] Erythrocyte distribution wid th Auto (RBC) [Ratio]on 09-15-2023 Erythrocyte distribution width (RBC) [Ratio] 14.1 % 11.5-15.0 [facility] Hematocrit Auto (Bld) [Volum e fraction]on 09-15-2023 Hematocrit (Bld) [Volume fraction] 41.4 % High 33.7-40.4 [facility] Hemoglobin [Mass/volume] in Bloodon 09-15-2023 Hemoglobin (Bld) [Mass/Vol] 14.0 g/dL 11.3-15.9 [facility] Iron binding capacity [Mass/ volume] in Serum or Plasmaon 09-15-2023 Iron binding capacity [Mass/Vol] 405 mcg/dL High 250-400 [facility] Iron saturation [Mass Fracti on] in Serum or Plasmaon 09-15-2023 Iron saturation [Mass fraction] 12 % Low 20-55 [facility] Laboratory - Chemistry and C hemistry - challengeon 09-15-2023 Iron [Mass/Vol] 48.0 ug/dL 28.0-170.0 [facility] Transferrin [Mass/Vol] 289.2 mg/dL 192.0-382.0 [facility] Leukocytes [#/volume] correc terry for nucleated erythrocytes in Blood by Automated counon 09-15-2023 WBC corrected for nucl RBC Auto (Bld) [#/Vol] 6.4 x10 3.5-10.5 [facility] Lymphocytes Auto (Bld) [#/Vo l]on 09-15-2023 Lymphocytes (Bld) [#/Vol] 2.2 x10 1.3-2.9 [facility] Lymphocytes/100 WBC Auto (Bl d)on 09-15-2023 Lymphocytes/100 WBC (Bld) 34 % 14-48 [facility] MCH Auto (RBC) [Entitic mass ]on 09-15-2023 MCH (RBC) [Entitic mass] 29 pg 24-34 [facility] MCHC Auto (RBC) [Mass/Vol]on 09-15-2023 MCHC (RBC) [Mass/Vol] 34 g/dL 26-37 [facility] MCV Auto (RBC) [Entitic vol] on 09-15-2023 MCV (RBC) [Entitic vol] 87 fL 81-100 [facility] Monocytes Auto (Bld) [#/Vol] on 09-15-2023 Monocytes (Bld) [#/Vol] 0.4 x10 0.0-0.8 [facility] Monocytes/100 WBC Auto (Bld) on 09-15-2023 Monocytes/100 WBC (Bld) 6 % 1-12 [facility] Neutrophils Auto (Bld) [#/Vo l]on 09-15-2023 Neutrophils (Bld) [#/Vol] 3.7 x10 1.5-9.2 [facility] Neutrophils/100 WBC Auto (Bl d)on 09-15-2023 Neutrophils/100 WBC (Bld) 57 % 44-88 [facility] No Panel Informationon 05-30 -2024 Add Manual Differential Auto Auto [facility] Eosinophils # (Auto) 0.2 x10 0.0-0.4 [facility] Platelet mean volume Auto (B ld) [Entitic vol]on 09-15-2023 Platelet mean volume (Bld) [Entitic vol] 6.7 fL 6.3-10.2 [facility] Platelets Auto (Bld) [#/Vol] on 09-15-2023 Platelets (Bld) [#/Vol] 179 x10 138-427 [facility] RBC Auto (Bld) [#/Vol]on RBC (Bld) [#/Vol] 4.76 x10 3.70-5.30 [facility] Follitropin [Units/volume] i n Serum or PlasmaOrdered By: LEOBARDO BARROSO on 06-23-2022 Follitropin Qn 6.2 m[IU]/mL [facility] Comment on above: FEMALE NORMALS (DELROY ENOPAUSE) MID-FOLLICULAR PHASE: 3.9-8.8 mIU/mL MID-CYCLE PEAK: 4.5-22.5 mIU/mL MID-LUTEAL PHASE: 1.8-5.1 mIU/mLFEMALE NORMALS (POSTMENOPAUSE): 16.7-113.6 mIU/mLMALE NORMALS: 1.3-19.3 mIU/mL Prolactin [Mass/volume] in S betty or PlasmaOrdered By: LEOBARDO BARROSO on 06-23-2022 Prolactin [Mass/Vol] 7.58 ng/mL 3.34-26.[address] [facility] CT biopsyOrdered By: Lisha Ford on 06-16-2022 Transferrin [Mass/Vol] 393 mg/dL 180-380 [facility] Iron [Mass/volume] in Serum or PlasmaOrdered By: Amanda Ford on 06-16-2022 Iron [Mass/Vol] 34 ug/dL 40-150 [facility] Iron binding capacity [Mass/ volume] in Serum or PlasmaOrdered By: Amanda Ford on 06-16-2022 Iron binding capacity [Mass/Vol] 550 ug/dL 255-450 [facility] Iron saturation [Mass Fracti on] in Serum or PlasmaOrdered By: Amanda Ford on 06-16-2022 Iron saturation [Mass fraction] 6.2 % 20-50 [facility] Anisocytosis LM Ql (Bld)Orde red By: FarhadCalvilloam on 06-11-2022 Anisocytosis Ql (Bld) Marked [facility] Basophils Auto (Bld) [#/Vol] Ordered By: Farhad Lashonda on 06-11-2022 Basophils (Bld) [#/Vol] N/A [facility] Basophils/100 WBC Auto (Bld) Ordered By: Farhad Lashonda on 06-11-2022 Basophils/100 WBC (Bld) N/A [facility] Basophils/100 WBC Manual cnt (Bld)Ordered By: Farhad Lashonda on 06-11-2022 Basophils/100 WBC (Bld) 1 % 0-2 [facility] Eosinophils Auto (Bld) [#/Vo l]Ordered By: Farhad Lashonda on 06-11-2022 Eosinophils (Bld) [#/Vol] N/A [facility] Eosinophils/100 WBC Auto (Bl d)Ordered By: Farhad Lashonda on 06-11-2022 Eosinophils/100 WBC (Bld) N/A [facility] Eosinophils/100 WBC Manual c nt (Bld)Ordered By: Farhad Lashonda on 06-11-2022 Eosinophils/100 WBC (Bld) 7 % 1-3 [facility] Erythrocyte distribution wid th Auto (RBC) [Ratio]Ordered By: Farhad Lashonda on 06-11-2022 Erythrocyte distribution width (RBC) [Ratio] 26.1 % 11.9-15.3 [facility] Hematocrit Auto (Bld) [Volum e fraction]Ordered By: Farhad Lashonda on 06-11-2022 Hematocrit (Bld) [Volume fraction] 25.7 % 34.0-46.4 [facility] Hemoglobin [Mass/volume] in BloodOrdered By: Farhad Jasonam on 06-11-2022 Hemoglobin (Bld) [Mass/Vol] 8.0 g/dL 11.8-15.4 [facility] Hypochromia LM Ql (Bld)Order ed By: Farhad Gallego on 06-11-2022 Hypochromia Ql (Bld) Moderate [facility] Leukocytes [#/volume] correc terry for nucleated erythrocytes in Blood by Automated counOrdered By: FarhadMerchant on 06-11-2022 WBC corrected for nucl RBC Auto (Bld) [#/Vol] 5.0 10*3/uL 3.8-11.6 [facility] Lymphocytes Auto (Bld) [#/Vo l]Ordered By: Farhad Lashonda on 06-11-2022 Lymphocytes (Bld) [#/Vol] N/A [facility] Lymphocytes/100 WBC Auto (Bl d)Ordered By: Farhad Lashonda on 06-11-2022 Lymphocytes/100 WBC (Bld) N/A [facility] Lymphocytes/100 WBC Manual c nt (Bld)Ordered By: Farhad Jasonam on 06-11-2022 Lymphocytes/100 WBC (Bld) 56 % 18-42 [facility] MCH Auto (RBC) [Entitic mass ]Ordered By: Farhad Gallego on 06-11-2022 MCH (RBC) [Entitic mass] 21.1 pg 24.7-34.3 [facility] MCHC Auto (RBC) [Mass/Vol]Or dered By: Farhad Lashonda on 06-11-2022 MCHC (RBC) [Mass/Vol] 31.2 g/dL 32.0-35.0 [facility] MCV Auto (RBC) [Entitic vol] Ordered By: Farhad Lashonda on 06-11-2022 MCV (RBC) [Entitic vol] 67.6 fL 80-100 [facility] Microcytes LM Ql (Bld)Ordere d By: Farhad Jasonam on 06-11-2022 Microcytes Ql (Bld) Marked [facility] Monocytes Auto (Bld) [#/Vol] Ordered By: Farhad Lashonda on 06-11-2022 Monocytes (Bld) [#/Vol] N/A [facility] Monocytes/100 WBC Auto (Bld) Ordered By: Farhad Lashonda on 06-11-2022 Monocytes/100 WBC (Bld) N/A [facility] Monocytes/100 WBC Manual cnt (Bld)Ordered By: Farhad Gallego on 06-11-2022 Monocytes/100 WBC (Bld) 5 % 2-11 [facility] Neutrophils Auto (Bld) [#/Vo l]Ordered By: Farhad Lashonda on 06-11-2022 Neutrophils (Bld) [#/Vol] N/A [facility] Neutrophils/100 WBC Auto (Bl d)Ordered By: Farhad Lashonda on 06-11-2022 Neutrophils/100 WBC (Bld) N/A [facility] Nucleated erythrocytes [Pres ence] in Blood by Automated countOrdered By: Farhad Jasonam on 06-11-2022 Nucleated RBC Auto Ql (Bld) N/A [facility] Platelet adequacy [Presence] in Blood by Light microscopyOrdered By: Farhad Jasonam on 06-11-2022 Platelets LM Ql (Bld) Normal Normal [facility] Platelet mean volume Auto (B ld) [Entitic vol]Ordered By: Farhad Lashonda on 06-11-2022 Platelet mean volume (Bld) [Entitic vol] 8.2 fL 6.3-10.7 [facility] Platelet morphology finding [Identifier] in BloodOrdered By: FarhadCalvilloam on 06-11-2022 Platelet morphology finding Nom (Bld) Normal Normal [facility] Platelets Auto (Bld) [#/Vol] Ordered By: Farhad Jasonam on 06-11-2022 Platelets (Bld) [#/Vol] 165 10*3/uL 150-450 [facility] Polychromasia [Presence] in Blood by Light microscopyOrdered By: Farhad Lashonda on 06-11-2022 Polychromasia LM Ql (Bld) Marked [facility] RBC Auto (Bld) [#/Vol]Ordere d By: Farhad Lashodna on 06-11-2022 RBC (Bld) [#/Vol] 3.80 10*6/uL 3.60-5.00 [facility] RBC morphologyOrdered By: Jenny Gallego on 06-11-2022 RBC morphology finding Nom (Bld) N/A [facility] Segmented neutrophils/100 WB C Manual cnt (Bld)Ordered By: Farhad Gallego on 06-11-2022 Segmented neutrophils/100 WBC (Bld) 32 % 50-70 [facility] WBC Auto (Bld) [#/Vol]Ordere d By: Farhad Gallego on 06-11-2022 WBC (Bld) [#/Vol] 5.0 10*3/uL 3.8-11.6 [facility] Activated partial thrombopla stin time (aPTT) in platelet poor plasma by coagulation aOrdered By: Jean Jett on 06-10-2022 aPTT Coag (PPP) [Time] 29.8 s 25.1-36.5 [facility] Anisocytosis LM Ql (Bld)Orde red By: Jean Jett on 06-10-2022 Anisocytosis Ql (Bld) Marked [facility] Basophils Auto (Bld) [#/Vol] Ordered By: Jean Jett on 06-10-2022 Basophils (Bld) [#/Vol] 0.1 10*3/uL 0.0-0.2 [facility] Basophils/100 WBC Auto (Bld) Ordered By: Jean Jett on 06-10-2022 Basophils/100 WBC (Bld) 1.8 % . [facility] Bilirubin Test strip Ql (U)O rdered By: Jean Jett on 06-10-2022 Bilirubin Ql (U) Negative Negative [facility] CT biopsyOrdered By: Jean Jett on 06-10-2022 Transferrin [Mass/Vol] 380 mg/dL 180-380 [facility] Calcium [Mass/volume] in Ser um or PlasmaOrdered By: Jean Jett on 06-10-2022 Calcium [Mass/Vol] 8.6 mg/dL 8.2-10.2 [facility] Carbon dioxide, total [Moles /volume] in Serum or PlasmaOrdered By: Jean Jett on 06-10-2022 CO2 [Moles/Vol] 23.3 mmol/L 22.0-30.0 [facility] Chloride [Moles/volume] in S betty or PlasmaOrdered By: Jean Jett on 06-10-2022 Chloride [Moles/Vol] 106 mmol/L 95-114 [facility] Color Auto (U)Ordered By: Luis Fernando Jett on 06-10-2022 Color (U) Yellow Yellow [facility] Creatine kinase [Enzymatic a ctivity/volume] in Serum or PlasmaOrdered By: Jean Jett on 06-10-2022 CK [Catalytic activity/Vol] 100 U/L 22-269 [facility] Creatinine and Glomerular fi ltration rate.predicted panel (S/P/Bld)Ordered By: Jean Jett on 06-10-2022 Creatinine [Mass/Vol] 0.71 mg/dL 0.44-1.03 [facility] Eosinophils Auto (Bld) [#/Vo l]Ordered By: Jean Jett on 06-10-2022 Eosinophils (Bld) [#/Vol] 0.3 10*3/uL 0.0-0.45 [facility] Eosinophils/100 WBC Auto (Bl d)Ordered By: Jean Jett on 06-10-2022 Eosinophils/100 WBC (Bld) 5.0 % . [facility] Erythrocyte distribution wid th Auto (RBC) [Ratio]Ordered By: Jean Jett on 06-10-2022 Erythrocyte distribution width (RBC) [Ratio] 24.6 % 11.9-15.3 [facility] Estimated glomerular filtrat ion rate (GFR) non- AmericanOrdered By: Jean Jett on 06-10-2022 GFR/1.73 sq M.predicted among non-blacks MDRD (S/P/Bld) [Vol rate/Area] > 60 mL/Min [facility] Fecal occult blood detection by immunochemistryOrdered By: Jean Jett on 06-10-2022 Hemoglobin.gastrointes tinal Ql (Stl) [facility] Glucose [Mass/volume] in Ser um or PlasmaOrdered By: Jean Jett on 06-10-2022 Glucose [Mass/Vol] 94 mg/dL 70-100 [facility] Comment on above: ADA recommended refe rence rangeRandom Glucose Reference Range is dependent on time and content of last meal. Glucose of more than 200 mg/dL in a nonstressed, ambulatory subject supports the diagnosis of Diabetes Mellitus. HCG ( test) IA.rapi d Ql (U)Ordered By: Jean Jett on 06-10-2022 HCG ( test) Ql (U) Negative [facility] Hematocrit Auto (Bld) [Volum e fraction]Ordered By: Jean Jett on 06-10-2022 Hematocrit (Bld) [Volume fraction] 23.8 % 34.0-46.4 [facility] Hemoglobin [Mass/volume] in BloodOrdered By: Jean Jett on 06-10-2022 Hemoglobin (Bld) [Mass/Vol] 7.3 g/dL 11.8-15.4 [facility] Hypochromia LM Ql (Bld)Order ed By: Jean Jett on 06-10-2022 Hypochromia Ql (Bld) Marked [facility] Iron [Mass/volume] in Serum or PlasmaOrdered By: Jean Jett on 06-10-2022 Iron [Mass/Vol] 25 ug/dL 40-150 [facility] Iron binding capacity [Mass/ volume] in Serum or PlasmaOrdered By: Jean Jett on 06-10-2022 Iron binding capacity [Mass/Vol] 532 ug/dL 255-450 [facility] Iron saturation [Mass Fracti on] in Serum or PlasmaOrdered By: Jean Jett on 06-10-2022 Iron saturation [Mass fraction] 4.7 % 20-50 [facility] Ketones Auto test strip (U) [Mass/Vol]Ordered By: Jean Jett on 06-10-2022 Ketones (U) [Mass/Vol] Negative Negative [facility] and C hemistry - challengeOrdered By: Jean Jett on 06-10-2022 Magnesium [Mass/Vol] 1.9 mg/dL 1.6-2.6 [facility] Natriuretic peptide B (Bld) [Mass/Vol] 23.0 pg/mL 5-100 [facility] Laboratory - CoagulationOrde red By: Jean Jett on 06-10-2022 PT Coag (PPP) [Time] 12.9 s 9.0-12.9 [facility] Leukocytes [#/volume] correc terry for nucleated erythrocytes in Blood by Automated counOrdered By: Jean Jett on 06-10-2022 WBC corrected for nucl RBC Auto (Bld) [#/Vol] 5.3 10*3/uL 3.8-11.6 [facility] Lymphocytes Auto (Bld) [#/Vo l]Ordered By: Jean Jett on 06-10-2022 Lymphocytes (Bld) [#/Vol] 2.2 10*3/uL 1.00-4.8 [facility] Lymphocytes/100 WBC Auto (Bl d)Ordered By: Jean Jett on 06-10-2022 Lymphocytes/100 WBC (Bld) 41.3 % . [facility] MCH Auto (RBC) [Entitic mass ]Ordered By: Jean Jett on 06-10-2022 MCH (RBC) [Entitic mass] 19.7 pg 24.7-34.3 [facility] MCHC Auto (RBC) [Mass/Vol]Or dered By: Jean Jett on 06-10-2022 MCHC (RBC) [Mass/Vol] 30.6 g/dL 32.0-35.0 [facility] MCV Auto (RBC) [Entitic vol] Ordered By: Jean Jett on 06-10-2022 MCV (RBC) [Entitic vol] 64.5 fL 80-100 [facility] Microcytes LM Ql (Bld)Ordere d By: Jean Jett on 06-10-2022 Microcytes Ql (Bld) Marked [facility] Monocyte distribution width [Entitic volume] in Blood by AutomatedOrdered By: Jean Jett on 06-10-2022 Monocyte distribution width Auto (Bld) [Entitic vol] 17.54 % 0.00-20.00 [facility] Monocytes Auto (Bld) [#/Vol] Ordered By: Jean Jett on 06-10-2022 Monocytes (Bld) [#/Vol] 0.4 10*3/uL 0.0-0.8 [facility] Monocytes/100 WBC Auto (Bld) Ordered By: Jean Jett on 06-10-2022 Monocytes/100 WBC (Bld) 6.8 % . [facility] Neutrophils Auto (Bld) [#/Vo l]Ordered By: Jean Jett on 06-10-2022 Neutrophils (Bld) [#/Vol] 2.4 10*3/uL 1.8-7.7 [facility] Neutrophils/100 WBC Auto (Bl d)Ordered By: Jean Jett on 06-10-2022 Neutrophils/100 WBC (Bld) 45.1 % . [facility] Nitrite Test strip Ql (U)Ord ered By: Jean Jett on 06-10-2022 Nitrite Ql (U) Negative Negative [facility] No Panel InformationOrdered By: Jean Jett on 06-10-2022 Estimated GFR () > 60 mL/Min [facility] Comment on above: GFR estimated refere nce range: According to KDOQI guidelines, <60 ml/min/1.73m2 is sufficient to diagnose a patient with chronic kidney disease. Pharmacy Creatinine Clearance (Chem 149.49 [facility] Nucleated erythrocytes [Pres ence] in Blood by Automated countOrdered By: Jean Jett on 06-10-2022 Nucleated RBC Auto Ql (Bld) 0.1 /100{WBC} 0-0.5 [facility] Ovalocyte detectionOrdered B y: Jean Jett on 06-10-2022 Ovalocytes LM Ql (Bld) Slight [facility] Platelet adequacy [Presence] in Blood by Light microscopyOrdered By: Jean Jett on 06-10-2022 Platelets LM Ql (Bld) Normal Normal [facility] Platelet mean volume Auto (B ld) [Entitic vol]Ordered By: Jean Jett on 06-10-2022 Platelet mean volume (Bld) [Entitic vol] 8.3 fL 6.3-10.7 [facility] Platelet morphology finding [Identifier] in BloodOrdered By: Jean Jett on 06-10-2022 Platelet morphology finding Nom (Bld) Normal Normal [facility] Platelet poor plasma interna tional normalized ratio (INR) by coagulation assay (relatOrdered By: Jean Jett on 06-10-2022 INR Coag (PPP) [Relative time] 1.1 {INR} [facility] Comment on above: INR Therapeutic Rang [...] 06-10-2022 Platelets (Bld) [#/Vol] 202 10*3/uL 150-450 [facility] Poikilocytosis [Presence] in Blood by Light microscopyOrdered By: Jean Jett on 06-10-2022 Poikilocytosis LM Ql (Bld) [facility] Polychromasia [Presence] in Blood by Light microscopyOrdered By: Jean Jett on 06-10-2022 Polychromasia LM Ql (Bld) [facility] Potassium [Moles/volume] in Serum or PlasmaOrdered By: Jean Jett on 06-10-2022 Potassium [Moles/Vol] 4.1 mmol/L 3.5-5.1 [facility] Protein Auto test strip (U) [Mass/Vol]Ordered By: Jean Jett on 06-10-2022 Protein (U) [Mass/Vol] Negative Negative [facility] RBC Auto (Bld) [#/Vol]Ordere d By: Jean Jett on 06-10-2022 RBC (Bld) [#/Vol] 3.69 10*6/uL 3.60-5.00 [facility] RBC morphologyOrdered By: Luis Fernando Jett on 06-10-2022 RBC morphology finding Nom (Bld) N/A [facility] Serum or plasma anion gap de terminationOrdered By: Jean Jett on 06-10-2022 Anion gap [Moles/Vol] 10.8 mmol/L 6.0-15.0 [facility] Sodium [Moles/volume] in Ser um or PlasmaOrdered By: Jean Jett on 06-10-2022 Sodium [Moles/Vol] 136 mmol/L 136-146 [facility] Specific gravity Auto test s trip (U) [Rel density]Ordered By: Jean Jett on 06-10-2022 Specific gravity (U) [Rel density] 1.010 1.001-1.030 [facility] Target cellsOrdered By: Mackenzie Jett on 06-10-2022 Target cells LM Ql (Bld) Slight [facility] Teardrop cell detectionOrder ed By: Jean Jett on 06-10-2022 Dacrocytes LM Ql (Bld) Slight [facility] Troponin I.cardiac [Mass/vol ume] in Serum or Plasma by High sensitivity methodOrdered By: Jean Jett on 06-10-2022 Troponin I.cardiac High sensitivity method [Mass/Vol] < 3 pg/mL 0-15 [facility] Urea nitrogen [Mass/volume] in Serum or PlasmaOrdered By: Jean Jett on 06-10-2022 Urea nitrogen [Mass/Vol] 9 mg/dL 01-08 [facility] Urine clarity by refractomet ry automatedOrdered By: Jean Jett on 06-10-2022 Clarity Refractometry automated (U) Clear Clear [facility] Urine glucose measurement by automated test strip (mass/volume)Ordered By: Jean Jett on 06-10-2022 Glucose Auto test strip (U) [Mass/Vol] Normal mg/dL Normal [facility] Urine hemoglobin detection b y automated test stripOrdered By: Jean Jett on 06-10-2022 Hemoglobin Auto test strip Ql (U) Negative Negative [facility] Urine leukocyte esterase det ection by automated test stripOrdered By: Jean Jett on 06-10-2022 Leukocyte esterase Auto test strip Ql (U) Negative Negative [facility] Urobilinogen Auto test strip (U) [Mass/Vol]Ordered By: Jean Jett on 06-10-2022 Urobilinogen (U) [Mass/Vol] Normal mg/dL Normal [facility] WBC Auto (Bld) [#/Vol]Ordere d By: Jean Jett on 06-10-2022 WBC (Bld) [#/Vol] 5.3 10*3/uL 3.8-11.6 [facility] pH Auto test strip (U)Ordere d By: Jean Jett on 06-10-2022 pH (U) 5.5 [pH] 5.0-9.0 [facility] Alkaline phosphatase [Enzyma tic activity/volume] in Serum or PlasmaOrdered By: Julieta Jefferson on 06-09-2022 ALP [Catalytic activity/Vol] 39 U/L 32-92 [facility] Anisocytosis LM Ql (Bld)Orde red By: Julieta Jefferson on 06-09-2022 Anisocytosis Ql (Bld) Marked [facility] Aspartate aminotransferase [ Enzymatic activity/volume] in Serum or PlasmaOrdered By: Julieta Jefferson on 06-09-2022 AST [Catalytic activity/Vol] 15 U/L 10-42 [facility] Basophils Auto (Bld) [#/Vol] Ordered By: Julieta Jefferson on 06-09-2022 Basophils (Bld) [#/Vol] 0.1 10*3/uL 0.0-0.2 [facility] Basophils/100 WBC Auto (Bld) Ordered By: Julieta Jefferson on 06-09-2022 Basophils/100 WBC (Bld) 1.4 % . [facility] Body fluid albumin measureme nt (mass/volume)Ordered By: Julieta Jefferson on 06-09-2022 Albumin (Body fld) [Mass/Vol] 4.1 g/dL 3.2-5.5 [facility] Calcium [Mass/volume] in Ser um or PlasmaOrdered By: Julieta Jefferson on 06-09-2022 Calcium [Mass/Vol] 9.0 mg/dL 8.2-10.2 [facility] Carbon dioxide, total [Moles /volume] in Serum or PlasmaOrdered By: Juleita Jefferson on 06-09-2022 CO2 [Moles/Vol] 23.3 mmol/L 22.0-30.0 [facility] Cholesterol [Mass/volume] in Serum or PlasmaOrdered By: Julieta Jefferson on 06-09-2022 Cholesterol [Mass/Vol] 137 mg/dL 140-200 [facility] Comment on above: Chol less than 200 m g/dl low riskChol 201-239 mg/dl borderline riskChol 240 mg/dl and greater high risk Cholesterol in LDL Calc [Mas s/Vol]Ordered By: Julieta Jefferson on 06-09-2022 Cholesterol in LDL [Mass/Vol] 72 mg/dL 0-100 [facility] Comment on above: LDL ATP III CLASSIFI CATIONLDL less than 100 mg/dL OptimalLDL 100-129 mg/dL Near or above optimalLDL 130-159 mg/dL Borderline highLDL 160-189 mg/dL HighLDL greater than 189 mg/dL Very high Cholesterol in VLDL Calc [Ma ss/Vol]Ordered By: Julieta Jefferson on 06-09-2022 Cholesterol in VLDL [Mass/Vol] 9 mg/dL [facility] Creatinine and Glomerular fi ltration rate.predicted panel (S/P/Bld)Ordered By: Julieta Jefferson on 06-09-2022 Creatinine [Mass/Vol] 0.59 mg/dL 0.44-1.03 [facility] Eosinophils Auto (Bld) [#/Vo l]Ordered By: Julieta Jefferson on 06-09-2022 Eosinophils (Bld) [#/Vol] 0.3 10*3/uL 0.0-0.45 [facility] Eosinophils/100 WBC Auto (Bl d)Ordered By: Julieta Jefferson on 06-09-2022 Eosinophils/100 WBC (Bld) 6.8 % . [facility] Erythrocyte distribution wid th Auto (RBC) [Ratio]Ordered By: Julieta Jefferson on 06-09-2022 Erythrocyte distribution width (RBC) [Ratio] 24.5 % 11.9-15.3 [facility] Estimated glomerular filtrat ion rate (GFR) non- AmericanOrdered By: Julieta Jefferson on 06-09-2022 GFR/1.73 sq M.predicted among non-blacks MDRD (S/P/Bld) [Vol rate/Area] > 60 mL/Min [facility] Globulin Calc (S) [Mass/Vol] Ordered By: Julieta Jefferson on 06-09-2022 Globulin (S) [Mass/Vol] 2.3 g/dL [facility] Glucose mean value [Mass/vol ume] in Blood Estimated from glycated hemoglobinOrdered By: Julieta Jefferson on 06-09-2022 Average glucose Estimated from glycated hemoglobin (Bld) [Mass/Vol] 97 mg/dL [facility] Hematocrit Auto (Bld) [Volum e fraction]Ordered By: Julieta Jefferson on 06-09-2022 Hematocrit (Bld) [Volume fraction] 26.0 % 34.0-46.4 [facility] Hemoglobin A1c percentageOrd ered By: Julieta Jefferson on 06-09-2022 HbA1c (Bld) [Mass fraction] 5.0 % 4.3-5.6 [facility] Comment on above: Increased risk for d iabetes: 5.7 - 6.4diabetes: >6.4glycemic control for adults with diabetes: <7.0 Hemoglobin [Mass/volume] in BloodOrdered By: Julieta Jefferson on 06-09-2022 Hemoglobin (Bld) [Mass/Vol] 7.8 g/dL 11.8-15.4 [facility] Hypochromia LM Ql (Bld)Order ed By: Julieta Jefferson on 06-09-2022 Hypochromia Ql (Bld) Moderate [facility] Leukocytes [#/volume] correc terry for nucleated erythrocytes in Blood by Automated counOrdered By: Julieta Jefferson on 06-09-2022 WBC corrected for nucl RBC Auto (Bld) [#/Vol] 4.6 10*3/uL 3.8-11.6 [facility] Lymphocytes Auto (Bld) [#/Vo l]Ordered By: Julieta Jefferson on 06-09-2022 Lymphocytes (Bld) [#/Vol] 2.0 10*3/uL 1.00-4.8 [facility] Lymphocytes/100 WBC Auto (Bl d)Ordered By: Julieta Jefferson on 06-09-2022 Lymphocytes/100 WBC (Bld) 44.2 % . [facility] MCH Auto (RBC) [Entitic mass ]Ordered By: Julieta Jefferson on 06-09-2022 MCH (RBC) [Entitic mass] 19.7 pg 24.7-34.3 [facility] MCHC Auto (RBC) [Mass/Vol]Or dered By: Julieta Jefferson on 06-09-2022 MCHC (RBC) [Mass/Vol] 30.2 g/dL 32.0-35.0 [facility] MCV Auto (RBC) [Entitic vol] Ordered By: Julieta Jefferson on 06-09-2022 MCV (RBC) [Entitic vol] 65.3 fL 80-100 [facility] Microcytes LM Ql (Bld)Ordere d By: Julieta Jefferson on 06-09-2022 Microcytes Ql (Bld) Marked [facility] Monocytes Auto (Bld) [#/Vol] Ordered By: Julieta Jefferson on 06-09-2022 Monocytes (Bld) [#/Vol] 0.4 10*3/uL 0.0-0.8 [facility] Monocytes/100 WBC Auto (Bld) Ordered By: Julieta Jefferson on 06-09-2022 Monocytes/100 WBC (Bld) 8.9 % . [facility] Neutrophils Auto (Bld) [#/Vo l]Ordered By: Julieta Jefferson on 06-09-2022 Neutrophils (Bld) [#/Vol] 1.8 10*3/uL 1.8-7.7 [facility] Neutrophils/100 WBC Auto (Bl d)Ordered By: Julieta Jefferson on 06-09-2022 Neutrophils/100 WBC (Bld) 38.7 % . [facility] No Panel InformationOrdered By: Julieta Jefferson on 06-09-2022 Estimated GFR () > 60 mL/Min [facility] Comment on above: GFR estimated refere nce range: According to KDOQI guidelines, <60 ml/min/1.73m2 is sufficient to diagnose a patient with chronic kidney disease. Pharmacy Creatinine Clearance (Chem N/A [facility] Nucleated erythrocytes [Pres ence] in Blood by Automated countOrdered By: Julieta Jefferson on 06-09-2022 Nucleated RBC Auto Ql (Bld) 0.1 /100{WBC} 0-0.5 [facility] Platelet adequacy [Presence] in Blood by Light microscopyOrdered By: Julieta Jefferson on 06-09-2022 Platelets LM Ql (Bld) Normal Normal [facility] Platelet mean volume Auto (B ld) [Entitic vol]Ordered By: Julieta Jefferson on 06-09-2022 Platelet mean volume (Bld) [Entitic vol] 8.2 fL 6.3-10.7 [facility] Platelet morphology finding [Identifier] in BloodOrdered By: Julieta Jefferson on 06-09-2022 Platelet morphology finding Nom (Bld) Normal Normal [facility] Platelets Auto (Bld) [#/Vol] Ordered By: Julieta Jefferson on 06-09-2022 Platelets (Bld) [#/Vol] 200 10*3/uL 150-450 [facility] Poikilocytosis [Presence] in Blood by Light microscopyOrdered By: Julieta Jefferson on 06-09-2022 Poikilocytosis LM Ql (Bld) Slight [facility] Polychromasia [Presence] in Blood by Light microscopyOrdered By: Julieta Jefferson on 06-09-2022 Polychromasia LM Ql (Bld) Moderate [facility] Protein [Mass/volume] in Ser um or PlasmaOrdered By: Julieta Jefferson on 06-09-2022 Protein [Mass/Vol] 6.4 g/dL 6.1-7.9 [facility] RBC Auto (Bld) [#/Vol]Ordere d By: Julieta Jefferson on 06-09-2022 RBC (Bld) [#/Vol] 3.97 10*6/uL 3.60-5.00 [facility] RBC morphologyOrdered By: Guicho Jefferson on 06-09-2022 RBC morphology finding Nom (Bld) N/A [facility] Schistocytes [Presence] in B lood by Light microscopyOrdered By: Julieta Jefferson on 06-09-2022 Schistocytes LM Ql (Bld) Slight [facility] Serum or plasma alanine paredes otransferase measurement without P-5'-P (enzymatic activiOrdered By: Julieta Jefferson on 06-09-2022 ALT No additional P-5'-P [Catalytic activity/Vol] 14 U/L 10-60 [facility] Serum or plasma albumin/glob ulin mass ratioOrdered By: Julieta Jeffesron on 06-09-2022 Albumin/Globulin [Mass ratio] 1.8 {ratio} [facility] Serum or plasma anion gap de terminationOrdered By: Julieta Jefferson on 06-09-2022 Anion gap [Moles/Vol] 11.5 mmol/L 6.0-15.0 [facility] Serum or plasma calcitriol m easurement (mass/volume)Ordered By: Julieta Jefferson on 06-09-2022 1,25-dihydroxyvitamin D3 [Mass/Vol] 60.5 pg/mL 24.8-81.5 [facility] Comment on above: Performed at: [address] [id number] Director: Jon Horton MD, Phone: [phone] Serum or plasma chloride robel surement (moles/volume)Ordered By: Julieta Jefferson on 06-09-2022 Chloride [Moles/Vol] 106 mmol/L 95-114 [facility] Serum or plasma glucose kelly urement (mass/volume)Ordered By: Julieta Jefferson on 06-09-2022 Glucose [Mass/Vol] 78 mg/dL 70-100 [facility] Comment on above: ADA recommended refe rence rangeRandom Glucose Reference Range is dependent on time and content of last meal. Glucose of more than 200 mg/dL in a nonstressed, ambulatory subject supports the diagnosis of Diabetes Mellitus. Serum or plasma high density lipoprotein (HDL) cholesterol measurementOrdered By: Julieta Jefferson on 06-09-2022 Cholesterol in HDL [Mass/Vol] 56 mg/dL 35-85 [facility] Comment on above: HDL CHOL ATP-III CLA SSIFICATION Cardiovascular RiskHDL > or equal to 60 mg/dL LOWHDL < 40 mg/dL HIGH Serum or plasma potassium me asurement (moles/volume)Ordered By: Julieta Jefferson on 06-09-2022 Potassium [Moles/Vol] 3.8 mmol/L 3.5-5.1 [facility] Serum or plasma sodium measu rement (moles/volume)Ordered By: Julieta Jefferson on 06-09-2022 Sodium [Moles/Vol] 137 mmol/L 136-146 [facility] Serum or plasma total biliru bin measurement (mass/volume)Ordered By: Julieta Jefferson on 06-09-2022 Bilirubin [Mass/Vol] 0.3 mg/dL 0.3-1.2 [facility] Serum or plasma total choles terol/high density lipoprotein (HDL) cholesterol mass ratOrdered By: Julieta Jefferson on 06-09-2022 Cholesterol.total/Chol esterol in HDL [Mass ratio] 2.4 {ratio} <5.0 [facility] TSH DL <= 0.005 mIU/L QnOrde red By: Julieta Jefferson on 06-09-2022 TSH Qn 4.10 m[IU]/L 0.45-5.33 [facility] Teardrop cell detectionOrder ed By: Julieta Jefferson on 06-09-2022 Dacrocytes LM Ql (Bld) Slight [facility] Triglyceride [Mass/volume] i n Serum or PlasmaOrdered By: Julieta Jefferson on 06-09-2022 Triglyceride [Mass/Vol] 45 mg/dL 35-149 [facility] Comment on above: TRIG ATP III CLASSIF ICATIONTRIG less than 150 mg/dL NormalTRIG 150-199 mg/dL Borderline highTRIG 200-500 mg/dL High TRIG greater than 500 mg/dL Very highStandard traceable to the Center for Disease Conrtrol and Prevention (CDC) test method. Urea nitrogen [Mass/volume] in Serum or PlasmaOrdered By: Julieta Jefferson on 06-09-2022 Urea nitrogen [Mass/Vol] 6 mg/dL 01-08 [facility] WBC Auto (Bld) [#/Vol]Ordere d By: Julieta Jefferson on 06-09-2022 WBC (Bld) [#/Vol] 4.6 10*3/uL 3.8-11.6 [facility] Urine 10 SGon 04-21-2022 Albumin DL <= 20 mg/L (U) [Mass/Vol] Negative [facility] Other pH (U) 7.0 [pH] [facility] Other Urine 10 SG Negative [facility] Other Urine 10 SG 1.020 [facility] Other Urine 10 SG large [facility] Other Urine Cultureon 04-21-2022 Bacteria identified Cx Nom (U) [facility] Other Urine culture routineOrdered By: Amanda Ford on 04-21-2022 Bacteria identified Cx Nom (U) 2 Days [facility] Activated partial thrombopla stin time (aPTT) in platelet poor plasma by coagulation aOrdered By: Phu Hdz on 04-10-2022 aPTT Coag (PPP) [Time] 30.4 s 25.1-36.5 [facility] Automated erythrocytes count in urine sediment (number/area)Ordered By: Jean Jett on 04-10-2022 RBC Auto (Urine sed) [#/Area] Innumerable [HPF] 0-4 [facility] Automated leukocytes count i n urine sediment (number/area)Ordered By: Jean Jett on 04-10-2022 WBC Auto (Urine sed) [#/Area] 3-4 [HPF] 0-4 [facility] Automated urine sediment mukesh cium oxalate crystal count by microscopy (number/high powOrdered By: Jean Jett on 04-10-2022 Calcium oxalate crystals LM.HPF (Urine sed) [#/Area] 1+ [HPF] [facility] Basophils Auto (Bld) [#/Vol] Ordered By: Jean Jett on 04-10-2022 Basophils (Bld) [#/Vol] 0.0 10*3/uL 0.0-0.2 [facility] Basophils/100 WBC Auto (Bld) Ordered By: Jean Jett on 04-10-2022 Basophils/100 WBC (Bld) 0.5 % . [facility] Bilirubin Test strip Ql (U)O rdered By: Jean Jett on 04-10-2022 Bilirubin Ql (U) 1+ Negative [facility] Casts typing in urine sedime nt by light microscopyOrdered By: Jean Jett on 04-10-2022 Casts LM Nom (Urine sed) None seen [LPF] None Seen [facility] Color Auto (U)Ordered By: Luis Fernando Jett on 04-10-2022 Color (U) Red Yellow [facility] Creatinine and Glomerular fi ltration rate.predicted panel (S/P/Bld)Ordered By: Jean Jett on 04-10-2022 Creatinine [Mass/Vol] 0.68 mg/dL 0.44-1.03 [facility] Eosinophils Auto (Bld) [#/Vo l]Ordered By: Jean Jett on 04-10-2022 Eosinophils (Bld) [#/Vol] 0.2 10*3/uL 0.0-0.45 [facility] Eosinophils/100 WBC Auto (Bl d)Ordered By: Jean Jett on 04-10-2022 Eosinophils/100 WBC (Bld) 2.1 % . [facility] Erythrocyte distribution wid th Auto (RBC) [Ratio]Ordered By: Jean Jett on 04-10-2022 Erythrocyte distribution width (RBC) [Ratio] 14.3 % 11.9-15.3 [facility] Estimated glomerular filtrat ion rate (GFR) non- AmericanOrdered By: Jean Jett on 04-10-2022 GFR/1.73 sq M.predicted among non-blacks MDRD (S/P/Bld) [Vol rate/Area] > 60 mL/Min [facility] HCG ( test) IA.rapi d Ql (U)Ordered By: Jean Jett on 04-10-2022 HCG ( test) Ql (U) Negative [facility] Hematocrit Auto (Bld) [Volum e fraction]Ordered By: Jean Jett on 04-10-2022 Hematocrit (Bld) [Volume fraction] 29.4 % 34.0-46.4 [facility] Hemoglobin [Mass/volume] in BloodOrdered By: Jean Jett on 04-10-2022 Hemoglobin (Bld) [Mass/Vol] 9.9 g/dL 11.8-15.4 [facility] Ketones Auto test strip (U) [Mass/Vol]Ordered By: Jean Jett on 04-10-2022 Ketones (U) [Mass/Vol] Negative Negative [facility] Laboratory - CoagulationOrde red By: Phu Hdz on 04-10-2022 PT Coag (PPP) [Time] 12.4 s 9.0-12.9 [facility] Laboratory - UrinalysisOrder ed By: Jean Jett on 04-10-2022 Hyaline casts LM Ql (Urine sed) None seen [LPF] 0-8 [facility] Leukocytes [#/volume] correc terry for nucleated erythrocytes in Blood by Automated counOrdered By: Jean Jett on 04-10-2022 WBC corrected for nucl RBC Auto (Bld) [#/Vol] 8.5 10*3/uL 3.8-11.6 [facility] Lymphocytes Auto (Bld) [#/Vo l]Ordered By: Jean Jett on 04-10-2022 Lymphocytes (Bld) [#/Vol] 2.1 10*3/uL 1.00-4.8 [facility] Lymphocytes/100 WBC Auto (Bl d)Ordered By: Jean Jett on 04-10-2022 Lymphocytes/100 WBC (Bld) 25.2 % . [facility] MCH Auto (RBC) [Entitic mass ]Ordered By: Jean Jett on 04-10-2022 MCH (RBC) [Entitic mass] 28.8 pg 24.7-34.3 [facility] MCHC Auto (RBC) [Mass/Vol]Or dered By: Jean Jett on 04-10-2022 MCHC (RBC) [Mass/Vol] 33.6 g/dL 32.0-35.0 [facility] MCV Auto (RBC) [Entitic vol] Ordered By: Jean Jett on 04-10-2022 MCV (RBC) [Entitic vol] 85.7 fL 80-100 [facility] Monocyte distribution width [Entitic volume] in Blood by AutomatedOrdered By: Jean Jett on 04-10-2022 Monocyte distribution width Auto (Bld) [Entitic vol] 14.20 % 0.00-20.00 [facility] Monocytes Auto (Bld) [#/Vol] Ordered By: Jean Jett on 04-10-2022 Monocytes (Bld) [#/Vol] 0.5 10*3/uL 0.0-0.8 [facility] Monocytes/100 WBC Auto (Bld) Ordered By: Jean Jett on 04-10-2022 Monocytes/100 WBC (Bld) 5.7 % . [facility] Neutrophils Auto (Bld) [#/Vo l]Ordered By: Jean Jett on 04-10-2022 Neutrophils (Bld) [#/Vol] 5.6 10*3/uL 1.8-7.7 [facility] Neutrophils/100 WBC Auto (Bl d)Ordered By: Jean Jett on 04-10-2022 Neutrophils/100 WBC (Bld) 66.5 % . [facility] Nitrite Test strip Ql (U)Ord ered By: Jean Jett on 04-10-2022 Nitrite Ql (U) Positive Negative [facility] No Panel InformationOrdered By: Jean Jett on 04-10-2022 Estimated GFR () > 60 mL/Min [facility] Comment on above: GFR estimated refere nce range: According to KDOQI guidelines, <60 ml/min/1.73m2 is sufficient to diagnose a patient with chronic kidney disease. Pharmacy Creatinine Clearance (Chem 152.39 [facility] Nucleated erythrocytes [Pres ence] in Blood by Automated countOrdered By: Jean Jett on 04-10-2022 Nucleated RBC Auto Ql (Bld) 0.0 /100{WBC} 0-0.5 [facility] Platelet mean volume Auto (B ld) [Entitic vol]Ordered By: Jean Jett on 04-10-2022 Platelet mean volume (Bld) [Entitic vol] 6.9 fL 6.3-10.7 [facility] Platelet poor plasma interna tional normalized ratio (INR) by coagulation assay (relatOrdered By: Phu Hdz on 04-10-2022 INR Coag (PPP) [Relative time] 1.1 {INR} [facility] Comment on above: INR Therapeutic Rang [...] 04-10-2022 Platelets (Bld) [#/Vol] 263 10*3/uL 150-450 [facility] Protein Auto test strip (U) [Mass/Vol]Ordered By: Jean Jett on 04-10-2022 Protein (U) [Mass/Vol] 100 mg/dL Negative [facility] RBC Auto (Bld) [#/Vol]Ordere d By: Jean Jett on 04-10-2022 RBC (Bld) [#/Vol] 3.43 10*6/uL 3.60-5.00 [facility] Serum or plasma anion gap de terminationOrdered By: Jean Jett on 04-10-2022 Anion gap [Moles/Vol] 8.5 mmol/L 6.0-15.0 [facility] Serum or plasma calcium kelly urement (mass/volume)Ordered By: Jean Jett on 04-10-2022 Calcium [Mass/Vol] 8.6 mg/dL 8.2-10.2 [facility] Serum or plasma chloride robel surement (moles/volume)Ordered By: Jean Jett on 04-10-2022 Chloride [Moles/Vol] 106 mmol/L 95-114 [facility] Serum or plasma glucose kelly urement (mass/volume)Ordered By: Jean Jett on 04-10-2022 Glucose [Mass/Vol] 99 mg/dL 70-100 [facility] Comment on above: ADA recommended refe rence rangeRandom Glucose Reference Range is dependent on time and content of last meal. Glucose of more than 200 mg/dL in a nonstressed, ambulatory subject supports the diagnosis of Diabetes Mellitus. Serum or plasma potassium me asurement (moles/volume)Ordered By: Jean Jett on 04-10-2022 Potassium [Moles/Vol] 3.6 mmol/L 3.5-5.1 [facility] Serum or plasma sodium measu rement (moles/volume)Ordered By: Jean Jett on 04-10-2022 Sodium [Moles/Vol] 138 mmol/L 136-146 [facility] Serum or plasma total carbon dioxide measurement (moles/volume)Ordered By: Jean Jett on 04-10-2022 CO2 [Moles/Vol] 27.1 mmol/L 22.0-30.0 [facility] Serum or plasma urea nitroge n measurement (mass/volume)Ordered By: Jean Jett on 04-10-2022 Urea nitrogen [Mass/Vol] 5 mg/dL 9-23 [facility] Specific gravity Auto test s trip (U) [Rel density]Ordered By: Jean Jett on 04-10-2022 Specific gravity (U) [Rel density] 1.033 1.001-1.030 [facility] Squamous epithelial cells de tection in urine sediment by light microscopyOrdered By: Jean Jett on 04-10-2022 Epithelial cells.squamous LM Ql (Urine sed) 3-4 [HPF] 0-2 [facility] Urine bacteria detection by automated methodOrdered By: Jean Jett on 04-10-2022 Bacteria Auto Ql (U) None seen None Seen [facility] Urine clarity by refractomet ry automatedOrdered By: Jean Jett on 04-10-2022 Clarity Refractometry automated (U) Turbid Clear [facility] Urine culture routineOrdered By: Jean Jett on 04-10-2022 Bacteria identified Cx Nom (U) 2 Days [facility] Urine glucose measurement by automated test strip (mass/volume)Ordered By: Jean Jett on 04-10-2022 Glucose Auto test strip (U) [Mass/Vol] Normal mg/dL Normal [facility] Urine hemoglobin detection b y automated test stripOrdered By: Jean Jett on 04-10-2022 Hemoglobin Auto test strip Ql (U) 3+ Negative [facility] Urine leukocyte esterase det ection by automated test stripOrdered By: Jean Jett on 04-10-2022 Leukocyte esterase Auto test strip Ql (U) 2+ Negative [facility] Urine sediment crystal ident ification by light microscopyOrdered By: Jean Jett on 04-10-2022 Crystals LM Nom (Urine sed) None seen [HPF] [facility] Urobilinogen Auto test strip (U) [Mass/Vol]Ordered By: Jean Jett on 04-10-2022 Urobilinogen (U) [Mass/Vol] Normal mg/dL Normal [facility] WBC Auto (Bld) [#/Vol]Ordere d By: Jean Jett on 04-10-2022 WBC (Bld) [#/Vol] 8.5 10*3/uL 3.8-11.6 [facility] pH Auto test strip (U)Ordere d By: Jean Jett on 04-10-2022 pH (U) 5.5 [pH] 5.0-9.0 [facility] Basophils Auto (Bld) [#/Vol] Ordered By: PROVIDER TEMP on 04-08-2022 Basophils (Bld) [#/Vol] 0.0 10*3/uL 0.0-0.2 [facility] Basophils/100 WBC Auto (Bld) Ordered By: PROVIDER TEMP on 04-08-2022 Basophils/100 WBC (Bld) 0.4 % . [facility] Eosinophils Auto (Bld) [#/Vo l]Ordered By: PROVIDER TEMP on 04-08-2022 Eosinophils (Bld) [#/Vol] 0.4 10*3/uL 0.0-0.45 [facility] Eosinophils/100 WBC Auto (Bl d)Ordered By: PROVIDER TEMP on 04-08-2022 Eosinophils/100 WBC (Bld) 5.5 % . [facility] Erythrocyte distribution wid th Auto (RBC) [Ratio]Ordered By: PROVIDER TEMP on 04-08-2022 Erythrocyte distribution width (RBC) [Ratio] 14.1 % 11.9-15.3 [facility] Hematocrit Auto (Bld) [Volum e fraction]Ordered By: PROVIDER TEMP on 04-08-2022 Hematocrit (Bld) [Volume fraction] 33.9 % 34.0-46.4 [facility] Hemoglobin [Mass/volume] in BloodOrdered By: PROVIDER TEMP on 04-08-2022 Hemoglobin (Bld) [Mass/Vol] 11.4 g/dL 11.8-15.4 [facility] Leukocytes [#/volume] correc terry for nucleated erythrocytes in Blood by Automated counOrdered By: PROVIDER TEMP on 04-08-2022 WBC corrected for nucl RBC Auto (Bld) [#/Vol] 8.1 10*3/uL 3.8-11.6 [facility] Lymphocytes Auto (Bld) [#/Vo l]Ordered By: PROVIDER TEMP on 04-08-2022 Lymphocytes (Bld) [#/Vol] 2.3 10*3/uL 1.00-4.8 [facility] Lymphocytes/100 WBC Auto (Bl d)Ordered By: PROVIDER TEMP on 04-08-2022 Lymphocytes/100 WBC (Bld) 28.1 % . [facility] MCH Auto (RBC) [Entitic mass ]Ordered By: PROVIDER TEMP on 04-08-2022 MCH (RBC) [Entitic mass] 29.0 pg 24.7-34.3 [facility] MCHC Auto (RBC) [Mass/Vol]Or dered By: PROVIDER TEMP on 04-08-2022 MCHC (RBC) [Mass/Vol] 33.7 g/dL 32.0-35.0 [facility] MCV Auto (RBC) [Entitic vol] Ordered By: PROVIDER TEMP on 04-08-2022 MCV (RBC) [Entitic vol] 86.0 fL 80-100 [facility] Monocyte distribution width [Entitic volume] in Blood by AutomatedOrdered By: PROVIDER TEMP on 04-08-2022 Monocyte distribution width Auto (Bld) [Entitic vol] 13.83 % 0.00-20.00 [facility] Monocytes Auto (Bld) [#/Vol] Ordered By: PROVIDER TEMP on 04-08-2022 Monocytes (Bld) [#/Vol] 0.5 10*3/uL 0.0-0.8 [facility] Monocytes/100 WBC Auto (Bld) Ordered By: PROVIDER TEMP on 04-08-2022 Monocytes/100 WBC (Bld) 6.7 % . [facility] Neutrophils Auto (Bld) [#/Vo l]Ordered By: PROVIDER TEMP on 04-08-2022 Neutrophils (Bld) [#/Vol] 4.8 10*3/uL 1.8-7.7 [facility] Neutrophils/100 WBC Auto (Bl d)Ordered By: PROVIDER TEMP on 04-08-2022 Neutrophils/100 WBC (Bld) 59.3 % . [facility] Nucleated erythrocytes [Pres ence] in Blood by Automated countOrdered By: PROVIDER TEMP on 04-08-2022 Nucleated RBC Auto Ql (Bld) 0.2 /100{WBC} 0-0.5 [facility] Platelet mean volume Auto (B ld) [Entitic vol]Ordered By: PROVIDER TEMP on 04-08-2022 Platelet mean volume (Bld) [Entitic vol] 7.0 fL 6.3-10.7 [facility] Platelets Auto (Bld) [#/Vol] Ordered By: PROVIDER TEMP on 04-08-2022 Platelets (Bld) [#/Vol] 199 10*3/uL 150-450 [facility] RBC Auto (Bld) [#/Vol]Ordere d By: PROVIDER TEMP on 04-08-2022 RBC (Bld) [#/Vol] 3.94 10*6/uL 3.60-5.00 [facility] WBC Auto (Bld) [#/Vol]Ordere d By: PROVIDER TEMP on 04-08-2022 WBC (Bld) [#/Vol] 8.1 10*3/uL 3.8-11.6 [facility] XR shoulder RT min 2V*on XR shoulder RT min 2V* [facility] [employer] Other XR shoulder RT min 2V* [facility] [employer] Other XR shoulder RT min 2V* [address] [place] [address] [employer] Other XR shoulder RT min 2V* [place] [address] [facility] Other XR shoulder RT min 2V* XRay Report [facility] [employer] Other XR shoulder RT min 2V* Signed No rt [employer] Other XR shoulder RT min 2V* Patient: Meagan Sanders MR#: [id number] [place] [employer] Other XR shoulder RT min 2V* [address] No rt [employer] Other XR shoulder RT min 2V* : 1995 Acct:[id number] [facility] Other XR shoulder RT min 2V* Age/Sex: 27 / F A DM Date: 03/23/22 [facility] Other XR shoulder RT min 2V* Loc: [facility] Room: T ype: REG I [facility] Other XR shoulder RT min 2V* Attending Dr: Daxa Ford APRN, JOINTER MACHINE OPERATOR-C [facility] Other XR shoulder RT min 2V* Copies to: Yaya Ford APRN, JARROD [facility] Other XR shoulder RT min 2V* Ordering Provider : Amanda Ford APRN, JARROD [facility] Other XR shoulder RT min 2V* Date of Service: 03/23/22 [facility] Other XR shoulder RT min 2V* XR/XR shoulder RT min 2V*: Other chronic pain;Pain in right shoulder [facility] Other XR shoulder RT min 2V* RIGHT SHOULDER - - 3 views [facility] Other XR shoulder RT min 2V* CLINICAL HISTORY: Pain lateral to right shoulder for 6 months. [facility] Other XR shoulder RT min 2V* COMPARISON: None [facility] Other XR shoulder RT min 2V* FINDINGS: No rt[employer]ur IMS Other XR shoulder RT min 2V* Minimal degenerat misti changes of the right AC joint. Glenohumeral joint is grossly unremarkable. No [facility] Other XR shoulder RT min 2V* acute bony process. [facility] Other XR shoulder RT min 2V* 0 XR/XR shoulder RT min 2V* [facility] Other XR shoulder RT min 2V* IMPRESSION: N [employer] Other XR shoulder RT min 2V* MINIMAL DEGENERAT MISTI CHANGES. NO ACUTE BONY PROCESS. [facility] Other XR shoulder RT min 2V* Impression dictat ed by: Sravan Dickinson Jr., D.ORenae03/23/2022 4:06 PM [facility] Other XR shoulder RT min 2V* Dictation Locatio n: RADIO-PC-12 [facility] Other XR shoulder RT min 2V* Transcribed By: Diaz OWENS 03/23/22 1606 [facility] Other XR shoulder RT min 2V* Dictated By: Jasiel Dickinson Jr DO 03/23/22 1605 [facility] Other XR shoulder RT min 2V* Signed By: No rt [employer] Other XR shoulder RT min 2V* 03/23/22 1606 [facility] Other Coding Summary.on 09-03-2021 Coding Summary. [id number] Gh0 bWw+PGhlYWQ+LY7GIWFrY77 poBLsaA9VH6jVDC9NGYXCVI SVME8TLN4ziGQ9IFobU6Edi iAv OoyzuTMzCG33AYc0KMY9fVj sFUzasA3vyAKyA7z5WiKiXN 02bJ69MQxuDDXkOvI6ChUlo jsgbWFy F4nnErXoxHSkBna+PHRhYmx lIHdpZHRoPScxMDAlJyBzdH gxNY3yGg7dCSIqOOIcoPfap HNlOiBj c8adILCnXMisZI6grKfvH7Y xpHH6LTTcr7r9Cz03dUM+PH WkWQG1tOldBTxve860LvCzw 8iuOHV4 uQPcXIblQWT2N40az9P9KTQ aEEPaCQC5vKR7iJ7zzGliba phC7SgaKBrJdG4JMQ0iNLwq W5xePhf wuyhoM6gGev+H10JVY3MAGU OPC9YUvd2F4QgLiyzuRK+PC 36FQXdHL04aCKxzYDob6qtr Rv0CbVf QGRlSLW8aImhVFqse0JlWFC yP78beREoy8R4DFWuuRlajY CiMkJxrUR2sK3nHPmfmhwoz 2hvdzsn Yiuis9obmk45jY53Y80tPYq rTOZmKEM1KKIqBVDzjMjnpg 3ceX9aJy6+OYypd6uat6mhx Yp9EzWs HGBbtcZuuLrwHIF9o6XhOj5 2M2AtkNeqg6IiWju8zt28iQ Vqq9O1xHV1MCpvQIMhlN6hE WxlZnQ6 BWZwQgLaaR20lUOaTHsuXs7 idNsogXhdCU9tCSYcjlgnVQ WnkK4iKQVnrJVaqOzqHO1fW TBpbjtm e057LzBlSYU1AHQuzUUgJ4H zjB6dLePdPHMlPDGwG0IncW PjFSybZ899IVbjZdG0JRLjv fLaY6Mj WOLttZpeLpD8c5M2Bh4Rc3R wtkfpZNC8XVrxSZN0UfE2Kl KuZxX9K0ZgKmv9YNRrjCmvM N0gU7Uf PQYdtahtywrfhMY7QZNiMQH ooN82tOHvRCsxGl5at4O1v8 86OHIwGSDkdR69Uc8hrWbdW TBwdCBU dT4aittqx8qsatxwYuMcICL pDDe1PCo7IZDauKjfQjQeXE Z9LrV2ZGT2vUFhlW2ujYlyj ykekR7p Oyc+O37hpC1eBKD0GWE1xjp xQOHvfiGmCZ07SS10P9DkXx wvdGFibGU+PGRpdiBzdHlsZ J5uBlKj z5uii7VkTNfpQ8UhJAKqDWs rRkh0MCCgYTW6fQB5uX5cSM VjUAlzd2E0zVN5C2ChcaUnx v6th9cb STQiQVofG64jrBWjg3M1WHG fzSG7YTUwbVokOuTqxC60Ue c+AKKrcTpvw8AfTqnnm4vye 0tgyAr1 JjRuRLEnjmWnvIqoZCZ7i4I cMq50K62uWSqrGNInCNWvEQ ZsVVLlvUyuyw1xrS3uPr3+P GNvbCB3 wDK6iY9cEODgIiG6ENbgJ62 3WqDfnIWqUrprp2axa5seiO u4CaYnYGAgpfEsgMxfPVT9x 1VoTo32 K49iDHkpTAIzOHIyCGCzHIT veDenal9ntE9eEg5+PC9jb2 kuzc59xT67aXN+OCTaUSC4t WxlPSdw CYPsaW5mCBqpSxC1NXMjHoD esW86zGFcDYqpZv5zyKaiyQ vyKX6zSMOacobnj979OtUdq 2xkIDEw jPDpAIcoZSA1P78am4A3TLN fYZKdFPC4dBR5tU9zfMoepm ogbGVmdDsgdmVydGljYWwtY JqvG814 IHRvcDsnPlBhdGllbnQgTmF qWTa2A2SqMqu4UUAfjPfhUV 8akUZfDKtrFy0vpFwtwZdgN B1qXLWk zqurq889FrApa2koQLWbaXU gSIdtENA1Z34ok5F5KTXtEM RoTJP7iCJ7iZ4bzNqbsuwvr GVmdDsg lgXgdHteWSymGQusS400OQD poYnzAaQuavDhDGWadFX8OE 77EQ09pVHuf0F3hHS4U1PpF GRpbmct siyrkYZ1CPRnVLZgfM38Hr9 qhIsaMu2kZIKcCWM3DEAwzH FyA5ThuZ5qWoGoOVSuTHSkL 3RleHQt YApfJ588EVolSpZ9GPQstuZ sD1FlTCQlpZedZnF3h6E0Ab 4VH6V1JO35AL47kLHpb7U2c NE8B1Nw MKVfgbvgxaxgoDB4CTEvCTJ bhS79Uy3ttMvnRj8gAMGrNO L0EKVuvQGqH2JsoP4cXfWhE DAwMDAw V0DahHQnAClgI580HTavWdG 9FJQlkaYvT7TsNERayUzmGr C7v0Q0Ws2SKSr0OL89VX14s VDht6P6 oLV7J2EtFHJbicfflsetfKM 3KYOdVAOhsE20Fc9fmMoiRt 4nUUIvRER4MHQcnJFmE3Bln P7uOmFc LJKsGIDjS5DwlLKdUTisD09 6GIjgUmO6YWTjmyAcL8GaHL BgwBmcHlO7h6X4Uj4XBSLlV F66GUM7 zXB7AR86QI44E7XeXzdveGA ibGU+PHRhYmxlIHdpZHRoPS mpAIZqHyGqlJtzEM0gLl7fG GVyLWNv pMewiXSaXqWjx2xcRYGvMKg bUF3yeNhaP3OauQT6EKRen0 g5Ed41J22uH1BzvZN+PGNvb UG3vZE1 tI5iHqAxAbH9NJlkH439LoS fwIOoXbfpy0qfw1nliAl6Zn I1GQHvrtQgdPynWYH5g4ZfZ o32B31b IHdpZHRoPSIxNSUiIHZhbGl ybm9ymE5tPa4+IPFvrVD9fS J9gR0oGdHmPqZ5HCtzW815S nRvcCIv Xcshb7tmp2wsjUi3DnNbUAI nkqJtuIgnMZU9j5CaLj34L5 WftKvlb3AdAsn6gm38hPSko 8Z9jVX5 C5AbJWRqthyyhCZatUoxTR6 oYPPwbmknJMVwlO8tQGTsD0 q0OxXmEbS2SJsaK3DwllJ7H DEwcHQg YFzuNGE7C08sq3K2GPXtRXB dIZV8pKP6cW2axOizrxyinI VmdDsgdmVydGljYWwtYWxpZ 246IHRv rGygIGKamR0xDSIvkVZkyIq qUT3vNXYhtnxsZx1GD6KPTm wgSEVBVEhFUjwvdGQ+PHRkI ZP2rLtf JHzfWCCtkK7wFOTbA1g7HzB fUeH3IWmqL3BzDELjucjkLi 57uF3cLoEsJiI5WPgmE2Zvm bC7BYHj pRXwFZubLRI4J92ud5W7TJK oFCEoWUO9nJK9uC3wnTbbet ogbGVmdDsgdmVydGljYWwtY CykB399 AQCbyRcfWuBqZsZ8ZsC7OTU 9I9NdQtp6EKCfzLugLI3uqE XhWUsoSv7gdArssZqqMO8jL TBpbjtw EKPseP5cVSKneJEuiLhsMH0 uUMFrkkgab257RaKxYYM6CU UeeFBwM8DvjZ2qNcXbKFZeD HUmN7Mt rRTvMFbcF616XMsnCoG4XRT mfcFcE2XqCXPhfHkqIvZ3f0 U6Uo9aUgHRXXTajvojvPW+P HRkIHN0 uQknRHwhAWCqbL1nLKRpS2e 2AwOtToB4MRzxA5JdGFQahz jaZk92uG5gSzTsMkL1RXndI 1HhhiI6 RPBnnEAxWDziBCW7Q90sk1V 6FRIgPFFwRNX9xWV0dX6zmF lnbjogbGVmdDsgdmVydGljY WwtYWxp O767KZRmfPygCrJwcVIjYCa vdGQ+GLMwWAX6jSmjGDglGN VglN6yEZIzM3c2QpUnYbR1V IwgN4Kx AOMqqbzrBa37wW3sIdIqGaE 2ALevN5TdetE1QBFbwKQuWF biZLH4V16tl2Z9LVDtGMTeW IE8gEZ4 zY8jlEdrusywzRCcbZrbopO epZpaXWxgVJapJ222KGKxrK hwEk50yXRxmMcgazL9X3BtC jwvdHI+ SG40SURnCX81tJLxuBVqu5n izKv1KzFpHSCaFQX7vLppGI ykq0CoWJLoQ51ijGOjb9X8L GNvbGxh nMTvXsAhqGB1pF6uXBywqth le1nwjqiuPrhpa3spsp16hH 93G45uCFdqDPXaZNEtTDNkM HZhbGln nl3lpA1mSg0+LALpqIW7hAL 4bX0yVvStUvM9QFdzL259Jg DtiDGuSjcmv4gim7yfoDb6C jIwJSIg dqSexDtzZGI5v4AaNd40S12 sIHdpZHRoPSIyMCUiIHZhbG jirr8pkB8pLi9+DZ4ol8jqh k87pG79 dHI+RXClQPT7jEabNLuwEWS pkX8hIVwsElU6JYXwMzLzbG 00tUZwUQppIb5yvShnhPmkA Q1zGNXp eyiqs593JvKsg4bwLKGjbLJ tXEmgLSI9C73sp1R3QTVsHQ ToXUB3oJR0qB9mcRhfqaotp GVmdDsg vmJmhIknIIslRVwbF114URD pwTloRtBhkFWfS4lddbAFKG 1lOjwvdGQ+JETjTHX3mPttT SdwYWRk hV4aRVVrD5e0GxCiDfK2IEl iI0GyjnQ3ZXBzhEWaSZKyoE WVwB1zbaitr8leodedKtWdC DAwMDt0 DUc8UDLmiXexMbQiHGD8FkB 8DRZ3sIIseA5iuZerlsuupW 9wOyc+RklOOjwvdGQ+PHRkI WX9yOgg JZfaLSJspJ7dIYPdM8p4BkX xMhW2LNotH1VbfrT8EZKxrC WhKYGwzEGSyT3pegqkw1afz jogIzAw HTUyZVt6HDo8ENRlkKrhQrS iOGW4GhQ9JAR0oDLlnH0mkS yvonuppV2hWxe+TVJOOjwvd GQ+PHRk TDN6mWovKDzzSTHosF5eISO aA0t9PhQsFxM7ELruN4Igsr Z8VIRsjHTkQHPdlBBDbR7wq iyax0fp fmnpYnWpJFIwBCg2YBi4PSU ixIerNrSuZVV2SqU0VMU1bZ FtlC4oaBnbrajsyX4tNyr+U BD4PZU5 DI27OT97U6TxMwpizDQyxCZ +PHRhYmxlIHdpZHRoPScxMD IuBsUmdIgyTG4qEa4sWPLrP WNvbGxh cHNl (more content not included)... Normal [facility] Office/Cl inic Noteon 09-02-2021 [...] after patient or guardian consented to allow [employer] [employer] to record this visit. [facility]NAMARIA mental health specialist and provider reviewed before signing. ANAMARIA: [...] History Bipolar: Sister. Depression: Mother and Grandparent. Normal [facility] Comment on above: Result Comment: Elec tronically Signed By: Jay DAVEY, Samir Rivera\.br\Date and Time Signed: 09/02/21 09:25 EDT\.br\Electronically Co-Signed By: Rissa Arias\.br\Date and Time Co-Signed: 09/01/21 17:11 EDT Coding Summary.on 09-01-2021 Coding Summary. CD:[id number]:[id number] Gh0 bWw+PGhlYWQ+HQ2PLLXbM33 dvIImnT8VQ9wXTJ3FYVBNTX YGHZ5TJH7ifNN5ERrhW9Mdl iAv RfqztNPaVR38EVs9MXI8xFe vPKwsuY5vhBAzV5z6CdUiUY 36nD95RVukNFXlSlV5WaSel jsgbWFy V1qhEcDtaYNaGix+PHRhYmx lIHdpZHRoPScxMDAlJyBzdH cnFE8zIm0mXVQgDHIpoTvcy HNlOiBj d2rgNZCiSWvhWE2sxPwoQ9J grOU9PVDkm0j6Ir44rUV+PH BmUQH3kXzpUKbtk375TyKas 4tkAFO7 wVMdGXtmNXB8L04zf2P7LID aMOMiIHX6hUR3uA9ywTxdst ptW9RhgRZaNlS1DJC4lRXqq T8mzVmk yhuiqG8dVou+O85MKR4OVMS XSU1PHjl6R1DvQdvegMH+PC 11ETCmEI82zWJvfUPat3zcx Eh7ArHp YILrMAV6hOxjYBbsw4EjSTD vD98ulHRuc4V1DGQkeXygpJ GcCbXlfPP0bN5fNJkjplusj 2hvdzsn Cgsxa6qokp66nC90N04hTBx mEWCaHVE8PUKhUYMuyKosxx 9smI8qMc6+JBzyy1lfw3oyc Ke3YlXi DBUrdlZzrHpbGKH6b5VtJm7 8F2FofWcaf7ZtBts1zi57pS Mel3K9zYX2UEwkSFDrxH0nF WxlZnQ6 FMWpJcRhkN86vJHnABgfVi8 cfVewqCwfIO3lVQStdzrvNI XfhJ2cQPCgnGLplIbtOR2oK TBpbjtm z421WrAnOID2WZSrqMCyK2J ieV3bLvTjJZHvNGRvN5XzyD XhXBnnQ612KYehPqX3NHXng lYcG9As NWFnhFfoAaF6r1J3Kp3Du4Z valokTHQ2RVwuMBW9FwI2Ql QpOoQ2T2HmVfr8ATMlfUnsG W9wI6Fo VCUzxmbekprhePM5KITpHFF lqO18dIDaNYlbWw5jy0Q9z6 04HNAgDMYtyY20Bn5clCqrS TBwdCBU cF5ichxlz7exssvuTlHzQRS bVNl3AIm7VWQikOmpArTsAM X6JwH8WZZ6iHYfpJ2hiNpsb nmptI0i Oyc+Z06qoF6vIFV1KHL6gfd uHDLdmnPlJC75TA74V2PnZb wvdGFibGU+PGRpdiBzdHlsZ E6gTvNs t2wti6VxZYflY8MxZDRlBBy uJau9OMGeVHX8rDA1yB3vQL QhHOxup1M4hAD5O3KtdqHas g2nt6iq HBZwVJqtB08zmBKzz4M5EKR emTF5LUNaeMvjSrOtzX66Rf c+FEUaaByms8VdTssai1rtc 7lgxJb5 BcHyDQXnktIyuXoiCRI9u6P lKy91R76eAJtcXABxMMLtGH IzWRRffBqgms0pcZ2sHf7+P GNvbCB3 mTY7vX2fVZNcErU2TCjhE83 8VpXqjGWtWktyo0goq2lqmE b9BcBoTJSsjgZfiHvdYEQ9z 1XhQj09 I81cGJiwTIShGJLxGDGcXUF boObyhv0bjX6pSo9+PC9jb2 hcbb34kY51lOP+IBUkUEM2h WxlPSdw FSDhcM0xWLudFpP8VPJxCaX ybA21hGQqLAlvMx2hsWsoeS aoKQ1bTFJljzzdk767FgPcv 2xkIDEw nVRkPNkeDDK3E46yy4R3PUE rGSTnTZX4qYK6aQ9baTcxok ogbGVmdDsgdmVydGljYWwtY TnjQ538 IHRvcDsnPlBhdGllbnQgTmF mURr6U1ZbGqb7HRJklBzzPM 5gcQPfVPixTc6peWhqqNjxV R9hTYFx cztby326SiVqq5boQXIxrXV bLFzxRJX5U60ol6V6ENOfHR GzUDK0qML3kO2qyFtqelmjs GVmdDsg dgQbmQdmQWbcMDonS206AMG dkMucOfZpcdIkLEQqzGC7XB 95GG97bMVzi0H7tEC4R6BmT GRpbmct wlrzmBX8OOFlFXPbfE17Pk0 zpEmxLl0iOFGeIDC7LUJmdG CtZ9TlvJ8bZjHdPVRrMGIgG 3RleHQt FLrdX984MQtgPaA2YLZwudZ gL9BwPPFagQldWdJ1p5K9Iv 7VD0E6VL62LH45uPMii4N8h EK0N3Wi FPAqwxuwztrfjVH7DCCpKFO lcE12Re8neFbvOv1pITJnUU F2XZMurDZeO4CfuQ4dKeBqL DAwMDAw K2MgkQJeIZbvO086MXekBvD 2JMOvreAfM0EtHWXxkBxmLo S4z1M2Kp3BYUe6MZ37OE86e NXis1N6 fAH7N1ZzYRCcuxaurxzwrPY 7OIInBZTlkO80Cg2qzYazRw 7hFTCaETY1AOOjiDGdK6Ieu M5tMkUx TPNbUHOzM4MdzIIvEXnmE81 8SAguReA0ECOyqqDyX1JoXF NwnPsyIkW8w7L4Bl1KJWKnK P00KTI8 xEH5MN54CG67H7VtPqbmzQY ibGU+PHRhYmxlIHdpZHRoPS kiOBMoDhHvoHsuLC4kVv2cE GVyLWNv cCappNNrOuKuv7puPFCtYFe lNT9jwXsqN0XchFZ5MPKqa6 e3Zk76M60wY4KvsKI+PGNvb WO3vXW2 kB4rSzSkIwT2TBgqJ737RnO frAVbZgscb0gae4uyjLw9Pw V5CMUzrzYlsEnnNQA2t7CeB u68E11n IHdpZHRoPSIxNSUiIHZhbGl iuf9leM9eRg6+UPRxdXP2iT Y3bU1sWgNwFpD1EKwiM850G nRvcCIv Zswos9cnr4mvtBj0MjXdSNU fprTxmEziQDO2i5RzCs81Y7 CxrDaba1HgCjz2cx70aUBgc 1V2mAH2 V6AzHSPlduuzqAUqnShiLN1 mLLOfpmdhSVVnqK5lJJIqZ4 i0IeUzSdP4XDdgT2XqtzM7X DEwcHQg VXbiGJA7W83cn8R8GTCoBLG wJLI8hPC7dS9uiCasuqzutQ VmdDsgdmVydGljYWwtYWxpZ 246IHRv gFfkHMJirQ5gYBXdyDJfsAh zDP2sYHFuvnfwPq6VG1UKSt wgSEVBVEhFUjwvdGQ+PHRkI FE0bCwc OUbxQIGogJ3nLFQeN1y1BzB qBwD6LCirX7IsXEFkftjdWz 76sP3pQaTjWpJ3JBayK7Hyr wR9VUNq cQIrKRsbKSK1Z23rf6A6BBT kYNPpVLA0fZZ2kW7brWpfyl ogbGVmdDsgdmVydGljYWwtY CgwE844 AKPwkVimCyLqInI8LwU0PKL 8N5DsFji4TKTtfFwsSV5ctU NtWKmpGd2cbPlrsHdaSU8cP TBpbjtw WUKxrR5kLCAftAJdeOpbUZ3 aWVUpgzpbn311NxViLKF4GO TklPCeZ9UqdM1kHvUfYOZgE DCqN1Ac qYGaPFrhX331YLteAsJ5MWB ingXwJ9GbQCCqqMgnWmQ4b4 S2Jo7wRpKMYDDrjidebNP+P HRkIHN0 jZtvXVpxQTVylY1vUTEoU9k 2PvZvMfG4XHuzO6XbCKVjbn paNe53dN2vWyApXeP9FEvdB 7CgruA3 KUAisWXoXRepQML3M64ug5M 9HQDcPABlZIK7pIL5dD5caN lnbjogbGVmdDsgdmVydGljY WwtYWxp Y792RXKeaTdcEoNdxSLcIFx vdGQ+EZOqPTB1lTosOJsyCJ CjiL8mZHRxQ1a7JlJqOqL5E CkkP4Ib WDFwrarrIx39xI0kGySmNaL 3CYamU8NsjqM9PWCugWIvDW qvUPN6P70qe7F9GCKrWDMbF VT8eRI8 aK7qdCqttdjmxCQfvKzvddI hhUyaZZxcSJlyF336AXHsmI brBr26nHGziAtyjzL3E5ApS jwvdHI+ PA64ZWCzDG51lIClbAGbw3n qkLm3MaRbIYJqGLZ1kVzlMT dzy4YxIBLlR85vuYQjh5R1N GNvbGxh wYDcNcGduHB8oH3bBIclnmq yn2dipsqbNvsms5gwyc92aD 01G15bQUdqGOTeFJIgFNVvA HZhbGln ky1fsA8lYt0+BGSexJK2tIW 5bV1cDjHpLcR4UTknD623Ck SzsKKpPpphy9ccy9vqaJd9A jIwJSIg azAoqYnwFNP5p1VjSn68I23 sIHdpZHRoPSIyMCUiIHZhbG znac9qkA8pVq4+OQ6xt2hop j17rN85 dHI+AQSeGHZ9eOhuCWitJCF vfB6zHJucAtM9DDRqBoZfzF 09eGFjBTsyGm1tmZrkpMjyV F8yLACu rnmfd819FjCiu9xwBSLjyWO tFUipOBR8A66mm6C2FPJrKH KrFAG4wVF2tS6cgClmcmgjk GVmdDsg nsIyvJmyVNaeQPrcJ281HCB myAhaNcSogRQyL4grmbGULX 1lOjwvdGQ+SBFtFTY1dMnmO SdwYWRk iX5wSVCkH7i0YuLeDiV5RIb hX1WblsO0HZAxfSEvJIFicG RTiM3ebwyfx5edbdlaJoZmZ DAwMDt0 HGr3ATBipQahNrUmAIJ9VuP 4ZRF3tEXguA8rzSwbakkirU 9wOyc+RklOOjwvdGQ+PHRkI DS1xPxm AIynKSUaqH4gBKGbI7o0SwJ jEzV0XYrvM9GpdcQ5XHRtzJ BvHNAdwIGNvW2lmztoo6atu jogIzAw WJZePSc5LDm7UJCjyKjvSgH yMDA8HcN7BCT2cOQkvF5diD wuxlewaA8zKnt+TVJOOjwvd GQ+PHRk VKX9cBdjOZbcBZUwzU1wJQL eZ1t8PeAlNdH8BNnjN7Oibm A9KVPwrNWxBZQdsBIErA0qh uodd8gq nrqzMfDxRPKsIQg0SQc9NAC gtLhvJgEvYOQ1XdN0NQJ0uE OqjS7ceCukcefnwS8kThz+U PY3IBC6 DT16EU69L4GqSkdqzKZdcOJ +PHRhYmxlIHdpZHRoPScxMD WbOtSmaLwiOF9jDh4iKETyZ WNvbGxh cHNl (more content not included)... Normal [facility] Consent for Treatmenton 08-16 Consent for Treatment [id number]#1.00C D:127 Normal [facility] Progress Note-Physicianon Progress Note-Physician [id number]#1.00 CD:127 Normal [facility] Holter Monitoron 08-27-2021 Holter Monitor 48-HOUR HOLTER [...] 4. No diary turned in. READ BY: Laurel Pires Dictated: 08/26/2021 [id number] Transcribed: 08/27/2021 cc:Samir Thompson M.D. [facility] Comment on above: Result Comment: Elec tronically Signed By: Martin DAVEY, Robin Galan\.br\Date and Time Signed: 08/27/21 10:21 EDT Holter Monitor [id number]#1.00C D:127 Normal [facility] Consent for Treatmenton 08-16 Consent for Treatment [id number]#1.00C D:127 [facility] Coding Summary.on 08-11-2021 Coding Summary. CD:[id number]:[id number] Gh0 bWw+PGhlYWQ+XU9ESROiF85 uaMMuuD3OZ3aLXO7ROVCULS LPEF5FRI2geVC4SRbqT3Jzb iAv ZexjvHWbKA09OSb6ENC0jGg bQHoifL0xcZCnQ8l3DsUuYP 24iH54FGquEBDfFlC0TsFxw jsgbWFy A5tdMzUsrCRlAwf+PHRhYmx lIHdpZHRoPScxMDAlJyBzdH zcJB5hCh9lOUSfYZVmhJzae HNlOiBj i2syTQGaEZkxOB9joTynK4G vwUC2HYJpb7c7Ap32dPH+PH ZkRDF0lNeeZSwxp098ZrEhk 1luWOF2 rVXtKVlkNVO8W55kw6J2WBG vLFNuCIC2fRS7tV3jnTavcs vpN9RuvMYjMeG8GLW7dTNbk B4msTbp echdyB9qOfg+J33XNH5YZDR MHQ4XExb9J8PbFzptmMJ+PC 18NMWsHK83sPGqcEKqm2cqd Tp9DtJt PDZoSSC5aYvkEBwku6WjPAI qR98lfZIkr3W6ALXmxFyyjV BhTxYnbUB8wE3eAUlbdrwbi 2hvdzsn Dueuu9wwtr64xU79Y52oXKh zZMIrLDO0XFFpZVQufIevtk 3qxZ0nRx8+JZvpn8sny9qqe Jt2SxEk MGFctdUgqRmgEAQ1u9JhEq5 3W3CmzQwrz5ThVqp6id31zK Bak8P5lWK0VRytJVLynO8gA WxlZnQ6 ZYJbAlRnlL40oTElKUlwMo5 mqEiedSxbGO6ySGQfwlicCX WwrQ6rRIKvsYIjwLcwXP3aA TBpbjtm v927MtClYXS1WADfhYEjY1Q uxK1eSvAcWQYqBPSyZ2QhlU TiWOroH553CKbwJlM0ZWLxo cOeG5Rt KOSlpNsfKjX6q4I5Yl4Kt1W kreuuJOM0SDmwSIJ6OkR1Pf ApWcI8C3QlSvp8CQRdnBnqS Y2sX0We PZLlpgfkzqzzzFO9EQEkCVK lcQ39pDWbEBebAc5nc9D0i5 05BOVaYQTrdF68Hc6xaZbcA TBwdCBU gG9dphcbn7hgvmttVlXnOXW bNZi9IWw2YCZqkFtrDhTzPG Q2OpX7IKO3tJRkvG8weAjcc rjvsV1z Oyc+Q05cwO6wOXQ5CQY1pus dFESdueBaIO98JC86V5SrSj wvdGFibGU+PGRpdiBzdHlsZ X9xSeVb v0jdi6ShPHghG9UaCOUaEHj oMwd4YLZrIJG9jCN1gF2bUI FbSQngx3L2uKF8N1PqunGvo q9ke3dw VAHoODgrB15ruIPcf1P7SYP xiQG9JVUmiSzsIzOnuY17To c+KKIpjOsux4BxBqtol6ekg 0syiLz1 CxMqUVNfobVyzMbmVOH2y5A cOo47S61pQAclROSaPHSqLN CvJMFtuMwuvz3wpI8eRn6+P GNvbCB3 wDM4eM2aMOXtFfU0IXdtT40 3GkViaHNnUwfbf1vdi1dofZ x6CcCbOOFlpzTamBobVSM3k 4VpRs46 P52mDUfmTDBtISZjIVQkMYY eiLbgqr9ezS7bMv8+PC9jb2 ywpl15qK35wTY+AHZmOYP3b WxlPSdw TRIvhR4yANijOsC6WZKwBbT tjZ50oVVoHElyRb8rlYfllI nmIF6pKCLqzabwt092IvUcm 2xkIDEw kWLkBQvgRPW1U89bf6V5JTT sPRDhBSF7ySR8cG1jxLwsuj ogbGVmdDsgdmVydGljYWwtY NvoG988 IHRvcDsnPlBhdGllbnQgTmF tMJj3V3FyPsj4OKUksIgkGA 6fqZSuQTbcNq0rlXzkzPgcJ H6rEEPz eduqa900YnSph7jiNHXvnXR cXFstEXR3W00tu9D6SNNmFN BkBKF3yCX9dF7ybZznzailx GVmdDsg owUpmTqpSVesUKpaC577LNN ptMrxScHnhrZdTDJceNQ5UU 37FP51tLBzs3Q2wPT5V2FdL GRpbmct nrytmWV6OOJiETJswQ38Wa2 pmPwuWh6lDYQjPFA6PRAwbI ZdD8TjmX9iCrYjOWCxSYTxR 3RleHQt ZQssY276ZKqsTbS2CIYtkbS aQ3HcZPVjjGidVoR7p4D6Dk 1PT1T3VU48YH10bYQeg3S4b SZ5O0At CZZdambtxhtzfBA4KJLwUCM amA28Pq4koHreRv6qFAVySZ R6BUQtbYGoY9QooK4aTkToG DAwMDAw Q3EynZMyLUkzL394XWxyPuZ 3DYUxdaJiP9KnDENcmBwnIq T5e1N6Fv0DVNu1CI28QZ64l UBrz1W7 dIS5Y8GqZNSutxdsejvloCW 6BUCuXUEnmU23Sa3qeZzfIi 0bDZCaGNQ5DNBisZTlY3Fju B4lPwWf ZTJpLIFkV2CurGFbOZfyI74 0FYueVaE9OXCozmFkX5DuAA JxyUubZnI7g2C6We5DZTFtO H52FDW9 jDG4UT65CX17E8KbTpilsRK ibGU+PHRhYmxlIHdpZHRoPS flWCQwKmQyoZbvCC1vTt5vV GVyLWNv pGjhuYVyTsSvk8oxJLPkQKq iDN4aiDdiV1QeeUF2UFBbm2 y0Bp71B52vO2OosSD+PGNvb FC5iOR9 cQ3wPgRlEoB8ZVzpH263KhI ugKUsMakpi3wzj3smoEc4Mg W4VJIefaVddWmtPEM7n3QuP v41M08a IHdpZHRoPSIxNSUiIHZhbGl hdp3bsN7rZz9+RANsiQQ0oC G6kH9cQkFbHuS3MFnxW187B nRvcCIv Khztc3lft8kmwLu6LsPaTQY pdoBaaWjyUQR2f7JkEy19V2 EdoCytc5MwGjz9jl24zTRfy 0T5xTZ0 M7QdFGDmdignyCOcjNutQD4 rYDQlzoofHMDkfI5gIOElH9 s1ByUjBcA3IStxD0RaatD6V DEwcHQg XFfhKFB4R79gu5L6IUVuRGN zHNA4fOS1lG1wyFxxkhkwdS VmdDsgdmVydGljYWwtYWxpZ 246IHRv wDliOWOnnE8xSPJqbNEgaUq zMW3zXOBisvroTy6DF4DZGb wgSEVBVEhFUjwvdGQ+PHRkI GN5fRtb PEdqVNYgcV5gEJZgU3j6TfN uRdE7NNpqY8YqNNUnaxclBs 83sY3vZnYrWlR5ULqdH4Iwm cY5QBFx uGNcHShiFIO8S22gx0O5RQE bHRZyXCY4rAA1oS6sxCiuop ogbGVmdDsgdmVydGljYWwtY LgxE562 VFLonHejMjKuPoG6IdJ4CVV 7A6WvWdp3CLEfkEtxHE3fhU GdUEhtTl0nqLrilQocNA3qV TBpbjtw RTLfxO9fDFHrbWVfrBscUT6 xAISscgkac039SwJaCZL8BD BrbYPgG6HjtI5hSeTaMNFjI CUmW5Kp qXNtZBriS329VCajHrL4UGO hrpPmM3BzKWBbzUptFuW8h3 O7He5qIvGPCTNnedsrcYX+P HRkIHN0 aYkrUCxgRZKosG6uYCQqZ0u 7ThPzOdN3HSgjD8BuXLOoxd wtBn45iB6iStUtCzK7YHucN 5TejdK1 WVRvhSSvUDomVGN0F82vr0R 1TYUgINPzUNH4eSI9zR2vfL lnbjogbGVmdDsgdmVydGljY WwtYWxp W625DEQlrEovTxOesNNmQHv vdGQ+VJMuXRV6vAytLVntVA PhtX2cPIUuL7h8HsOyBnC8F VryF5Af NAOltcxqDc45dX1pNqNdSnB 9BYnqW4XrqvG0WYQuwSShED efDMC8G15yn7P7JNXpVTPgA CI4sVC7 fL6bzYfsdgycxKNwdCzycgJ glTqxZMlqVPuuB560LRZulD ygHj02yEUyaSwrmkA2I0EfU jwvdHI+ RO58NGFwYJ71hBTcwBTyr5y qkLs7XpHyZAFuOCX3hOjwJR gpf7TpXJUxU80hsDNhy3G7A GNvbGxh eQWiDjVplKR7wO6eNMunwra dy2twwiouRiioj9yfyg92kR 02E93hSItfARIzPZRmKIIkX HZhbGln fd0dnC5nHk9+TWUniAD4oQC 5yE3eBdKaGiE5VGleR209Tg VtxCHbNpmvr0hxn0wpgAo9X jIwJSIg xtZnlLmgJOI1h8TkJh87V08 sIHdpZHRoPSIyMCUiIHZhbG mggj7mfO3vMe2+LF7ik3jgu x45lA29 dHI+DECoRXC7vZzaUXozPFE ubX3uIVvuPzG9EJTqOiRjqR 98fCHrHIoyZu6kcHkwzLwzB S6sOIAk gfjzn171DhHnc3brETMzlMR qPQujMXG7P85pc3R8NMWgEI PoHOB1sBS9kW5keFcntoicr GVmdDsg osLcjNjjOYxtQWppA964XZH adShkBhBbpHQqI2efcsUUDO 1lOjwvdGQ+FYSwAJS3tDnpM SdwYWRk bF8lASJtK1j7EgUvUsB2COh uE5ZiqdW6CZKupKKkFDOwfH UOgN9purage3qgimhbKbIjF DAwMDt0 LMe9OATuoNhlNlVcXQW1EmQ 4MTV2aUMazR2xwJezdsnuoM 9wOyc+RklOOjwvdGQ+PHRkI KZ2hAix ATiuSFXbaM4aYAZiN4t6GtN aUzV5FCxoL4NeasM6BFKbaF BnKQHxhIOYeN6flfdxh7rjf jogIzAw BQLnPGp1BXu0VQAaqCrvQjY bIOA7NbC3UGI9aWKksJ4vkJ wcqmjnvH0rYnn+TVJOOjwvd GQ+PHRk OLK4vJziAOlfZGGkfI6hNKV aB1w3MnOqFjY9MZxtK5Pdnx W5CCJgxEAsFUMmjNROsR1ik wiys6of zpqvDcAqLZNaTLz8WFh2GOM abCtpFvJlJFJ0KkJ0CLK9aG EduT1meJmnpfaqhK5uCuo+U AF9PRI1 KA69OM51Z3WiNtkgoVMumCJ +PHRhYmxlIHdpZHRoPScxMD HaNhOgrBhwXD8rMq9cBBNyL WNvbGxh cHNl (more content not included)... Normal [facility] Stress EKG Tracingson 2021 Stress EKG Tracings [id number] 052 [id number]#1.00 CD:127 Normal [facility] Consent for Treatmenton 07-18 Consent for Treatment [id number]#1.00C D:127 Normal [facility] Coding Summary.on 08-03-2021 Coding Summary. CD:[id number]:[id number] Gh0 bWw+PGhlYWQ+HJ6YYIXjR10 xtBOoiZ3VK6eAPS5BSJGHUQ KMFC3AFA9hjYI1UFpdT2Rrr iAv AdbsmRWwXJ28GVd9ZUW1eWq zPFmziE3kiPOvW8e1IlRhAS 14uV05KTkfYAQzCaD4YwOnd jsgbWFy Q3iuGxTvdXFlGrl+PHRhYmx lIHdpZHRoPScxMDAlJyBzdH thXT5dKt9zRLVbQENaaBtpa HNlOiBj m0gmEJVgYKlwCI3lsFggE0X inKQ1YMYzn8o1Hl58iQT+PH AzAXG0hXfxGFqrl793IlWbx 8gyVVA1 bODnGUtxCBP6H76qa5O1XNJ rEOBrCZA6lGQ9qX2veGfqbh zrN9ZqsDZkDdP9GKT6jGRna K1flYpg qltuhV0aWhd+P26RBW7SSNT VNZ6VLzd4F6FhDvdwlCF+PC 49VAAbPL71tSPxtNEql6hkb Tj2IdCd PXRtTYX9sKmwUDvsh7EzEEA dK05uyUGpz6T9QVMeyLbhoD TyWgQvlBU4xT0bRHpmcmyaj 2hvdzsn Vvlxl1ielt88aJ60T08wMZb iXFAhRJN8PXRcKXQaiZqehv 5jgB7wAt6+ZTnmr1nhc8lqt Vw5JoOa FEQykvFdxIdxZLR8y5HhLq4 3S7FlrRkjk4JdAxf7ju53cU Lgp9J6qPV0VMneVAFedK1mL WxlZnQ6 ZAUtKfDjtB63uSWnBSluCh8 vyJovkIbnFI6mJQPcnhckTS NeiT6nSMMbvZJrdXyrDC2vQ TBpbjtm s272MiHiEIH1VXLmrVCeX4M ciA9aSwRaWHOeGKGjR5CtsE VwCEtkO953YPkhPeC0NKPyd aGwB6Qu APYiyVcgIqQ6b1Z3Vm5Cr3V pusxyKMA9WQrqDME4SeB4Ij JkZxC7H9OxVsu2AJUesPtzT O7eP0Ic WUFhgwnmyarxcQQ4BQTrYKU fhG67kNNuQGolIc9mu8Q9v4 43KXJfVDRckJ35Iq5ciWazS TBwdCBU fL5gohvxg5ixvhjiTsNiRJF qDLp3DTe1HMVfgHpoJbEzBI Q7UoW9UKI7nWKhzV2aaLzqu ptfnF6t Oyc+K44ftE6hTLS9OWJ9zcl uOZWysfJnUF34TH79R4MuYq wvdGFibGU+PGRpdiBzdHlsZ A4aAiQt e3fsr7HhMRbtD7HkBIQnSNb hHzl9NQDdRDH1uNH2vQ1kGT WuDMhtm8H7gAB2S4DwnwXxh v1vs2qq EDIqFDfrR46bsUXft7Z3PAL vsVW2CTKbzOauPnUhgM70Wy c+CRWtoZlnz3MrKcipp2lev 6bibGz9 SrYgOKTpihQsxTkzGRJ0o8S uXd80O55yXSqhEUMiCQVzCI DsVJYvdNibyd5rtP6nEj1+P GNvbCB3 mEU2mZ3xNSFwXiR8JRfcA21 6ZgLgnYKeMvbet5glt7ybkE h8NpJlRAUirhHmpDsxGCZ0v 0DkFc83 V29vNSmdRHBrZYZaADNjKMO vsEwxnl5rzG0kCs7+PC9jb2 wciz02bV53qAK+YSBlGKK2e WxlPSdw LHNphM7xHDvcXaY2ULYcPiM hsH81aMDtUIhyRj9rgGszjW cnJT0mUORwcjyjf100ZsLxx 2xkIDEw hMGmVEewHLB7B54gd9B2HIU sZTCeSSR6zBD4fL8pdUnqgi ogbGVmdDsgdmVydGljYWwtY MozQ011 IHRvcDsnPlBhdGllbnQgTmF dFIq9O4UnAbl2WJLruFouKC 9kmUXvBFmmYt0feObttFbjG G0bRCSz zdnuh757IjKvm7ryWCKeaZV zTTstGZG6L27nf5Z3QFZfQW OiWDP3yTI6sW9sqXsjlglfb GVmdDsg nfEwuFxjPBvuYVtgT610UQQ vwSdjUoOwtyDoCFWlgTR8DR 03WR30jEVws5D7uST9F1EhR GRpbmct dvlkhIZ8MJPyFSJrpV58Ic7 tiHswBr3rOFExDNV9CVQydH SeM8LnqK7fLuNpECFqKRYpB 3RleHQt QTqqG663UDpaPgM9KRDvrsZ kN8NmNNUsdCrfMjE5n3M3Bm 6BD0Y9JL86OA57zGUlc0D2d LU5A3Mx QGKifgpcmvghnMM4ACCwFDX qoB43Ic7waAqsWj8uLQQsFG T8BGBerMOsF1YauD7lLwDxZ DAwMDAw W0CzvTSnXQnvP666ZZtfKeB 4PBZjnqIoJ4ToOALhoWcxKu T8f3R0Em5KCZm6KS84GL16v GHpp4G8 jKV0V6PgKCDqnxyvmyfgqHQ 4FGEgNMZiqS05Io2tvUrtAr 1bXWPnOJH1IFCalSHnE9Etd B6bRzWf TAVhUOKmJ1FbeSVrHHnfY23 4HToaBsI8YUTbjiKyV0EeHQ WmvXywZjT3g2N3Fc1ZEYCgL T35JLW6 fGL1AR65DV75F5XfCdgtxMU ibGU+PHRhYmxlIHdpZHRoPS cvYJBuKpMylXqzQW1vAf7hE GVyLWNv pVcesCXvAeEoo1qaRJSiQIp qQH4sxGreS2GlcCX6CDShe1 k3Lf43S18xR9JcaII+PGNvb RB5oOF4 gW8wYhRdPvI0ROfxU312NxL rwOGoLlydb2piz0zwpLi2Fv S7PZUjxsBqvSdsOJF5c4CeR s99P47k IHdpZHRoPSIxNSUiIHZhbGl pfd7bjD6nMl1+UPAdqRJ8yM T8tA5cIxBfIwS0LFwlN476U nRvcCIv Ezvgt9hmw9hjhFg8NmFxZIC cuzZvbQcvAEK0a5CzRj53J8 BmiBkiy2XmDcx0aw45qHJcm 2E8pFC5 U0BkYVQicaymmTUomDqnPF7 hUYLlajaaJFIxmP3hSGEaK8 u8NaZaEeZ3RCubX8EfoxE5K DEwcHQg VDqsGNV6R05vk2L8KBQgCAM gXVG8rVD7mO3czPdcdtslpF VmdDsgdmVydGljYWwtYWxpZ 246IHRv bFhiFGJqgJ6mHIGoiGPhsIh mQL2uVBOvfkbsFr3PZ1UJNy wgSEVBVEhFUjwvdGQ+PHRkI OK0yIvt OEvdPATjyB9oQBLiJ1t0HsW dVyM4MUviD5DqWNWgnrjpNn 33rS5fIeRhNsP4TRbbF8Njt yY9RGWb oTKiSBjiFXM6H49aa4A7SLZ wZOBsXUE2nPQ7oY1mmOgxqn ogbGVmdDsgdmVydGljYWwtY HlkY960 CXGtcObySzSfTcN7NeE5DXK 7J9ReOix8RGMqhMtjJJ1gwR XmWHqwEd2lvMrcfPvcIY8eY TBpbjtw KVExmW9lKVVmhFKpqVdeDK7 dXKWfvheur896ZbEfQLP7DG SmeQJfQ2UrvG0fLhLsXCTrD WPnF3Qz yQUsDVlkD090PKntEeZ5WQC usoSnP3ThZWWfzPupPqU6j4 W8Ph6iAdGISMFcxdnkfDF+P HRkIHN0 zAlrRYtcBYYhwU4jTVSgX0c 5AhDjSzH0DLwcY7TyTBBnis acYe45hP7cMtTsIbG2KNijX 5CpuiP1 WLEktTOuJPocKBA3L54ch2E 3PQJmKPBmSGI7gOB4lO5lcM lnbjogbGVmdDsgdmVydGljY WwtYWxp Y586OVNiaPpsZkPqfAZmLAs vdGQ+NQWuLTG7cHfpIJmtBD PcjN8sBCEkZ5o8RwBoIrO0V JzgR6We EOVzcltaWw47zY9oBuCeCcN 7DOyrC7ElhbY0XOXzbYHwAY fnSFL4S10av6P9DAOqHUDdS LI9uQB5 vQ1ngBtkapnhbMZkxGmyngH qoCihNAbvSViaB602RNQbvY lmEg04dBEhbEweavS0O0KpE jwvdHI+ FR75AIAfID93lAXehIDri6v mjUv9PuZdGQLaGOH9rSysJT lun7TwADJaU03rjIKty7H4X GNvbGxh bUYeXtZqzRY0wM5mNQwltnd uq5pzzhrsZprgk1cugr17fS 41B89yFWycSLQgLUXsKWUcT HZhbGln by2xpM5vGi7+TKBnqGS2sMO 4oZ7uBmSkKmI9HHmbM505Dx OawCUuGuyxj3fwg9nmbKy4X jIwJSIg hiRscClkQZG3k7OlDr35G23 sIHdpZHRoPSIyMCUiIHZhbG ykxh5bgM9vBl3+VM2tv3ptu f12pX97 dHI+BWQfGSK9cKjtBRquZBE mhU3jCYoxZpT4XUHiDkRbxA 06iVIdUBndYa3fuBpnfNpaP U8fOKMb qttua398ZjKzi9ieDMYmzJF gWCjyCMS7M02fa7W7VHFdPX DoWUB1fRL7dG4nwDzacjqnn GVmdDsg uuHlxIxkNHstAImeY911ZAH leJrrQnMzdCUgW8nyjiBYIZ 1lOjwvdGQ+CTNbXCQ8pQngQ SdwYWRk iM8xJHRiD1h9UlTjYoT0PJq tK8IsvrR2ABOtlVWgDFBhlM QAhG9aystuq2qwmkfmJqVcV DAwMDt0 RDt1NEKizPvgCgQiICX8GgA 6OTF6mJZtxA1hsUwllvjjeY 9wOyc+RklOOjwvdGQ+PHRkI HB5zWvl UDyjQKQrzJ2rHQTgT7o5CnD pLtJ2JZslJ9DrsxN4LZKtsC RsWLRqoXRCwS6mtxole5phr jogIzAw NXKhJDk1EAs5OZWroGuwZxW dTTA3HcA9YUN8yUAozE2uaR veiodopS8eWbo+TVJOOjwvd GQ+PHRk QCJ6bOzcOMerEOLkzF5pPME qF9a8MrJyFbC7FZfxJ1Hsna A8KUJbeGEeAVUvqXZItU4bg grzg0as obhvKwSlVEWoMQy1RVi6ZWQ bmZckNvHbKFJ8LcI8ACW6eH VukI1eeSdnyxyrdY5uOgh+U QG2AFV9 IS34QJ95D0UmUefpkFHnlGV +PHRhYmxlIHdpZHRoPScxMD QkUwUbwMajTU2vIs5pASPyN WNvbGxh cHNl (more content not included)... Normal [facility] Progress Note-Physicianon Progress Note-Physician [id number]#1.00 CD:127 Normal [facility] Heart and Vascular Office/Cl inic Noteon 07-27-2021 [...] rate increases with exercise. She presented to [facility] 2 weeks ago for suspected nephrolithiasis [...] after patient or guardian consented to allow [employer] to record this visit. ANAMAIRA mental health specialist and provider reviewed before signing. ANAMARIA: [...] Use:. Never [place] (more content not included)... [facility] Comment on above: Result Comment: Elec tronically Signed By: Jay DAVEY, Samir Rivera\.br\Date and Time Signed: 07/27/21 10:44 EDT\.br\Electronically Co-Signed By: Rissa Arias\.br\Date and Time Co-Signed: 07/24/21 16:24 EDT Consent for Treatmenton Consent for Treatment [id number]#1.00C D:127 [facility] Referrals Officeon Referrals Office [id number] [id number]#1.00 CD:127 Normal [facility] BASIC METABOLIC PANELon 04-19 Anion gap [Moles/Vol] 8 mmol/L Low 9 - 17 mmol/L [place] Bun/Cre Ratio NOT REPORTED [place], [place] Calcium [Mass/Vol] 9.2 mg/dL 8.6 - 10. 4 mg/dL [place] Chloride [Moles/Vol] 105 mmol/L 98 - 10 7 mmol/L [place] CO2 [Moles/Vol] 26 mmol/L 20 - 31 mmol/L [place] Creatinine [Mass/Vol] 0.67 mg/dL 0.5 - 0.9 mg/dL [place] GFR >60 >60 mL/min [place] GFR Non- >60 >60 mL/min [place] GFR/1.73 sq M predicted among non-blacks MDRD (S/P/Bld) [Vol rate/Area] NOT REPORTED [place] GFR/1.73 sq M predicted among non-blacks MDRD (S/P/Bld) [Vol rate/Area] [place] Comment on above: Average GFR for 20-2 9 years old: 116 mL/min/1.73sq m Chronic Kidney Disease: <60 mL/min/1.73sq m Kidney failure: <15 mL/min/1.73sq m eGFR calculated using average adult body mass. Additional eGFR calculator available at: http://www.[employer]/multiple_crcl_2011.htm Glucose [Mass/Vol] 99 mg/dL 70 - 99 mg/dL [place] Interpretation and review of laboratory results Abnormal [place] Potassium [Moles/Vol] 4.5 mmol/L 3.7 - 5.3 mmol/L [place] Sodium [Moles/Vol] 139 mmol/L 135 - 144 mmol/L [place] Urea nitrogen [Mass/Vol] 5 mg/dL Low 6 - 20 mg/dL [place] Basic Metabolic Profon 05-08 (cont.) Normal [facility] Comment on above: Result Comment: Aver age GFR for 20-29 years old: 116 mL/min/1.73sq m Chronic Kidney Disease: <60 mL/min/1.73sq m Kidney failure: <15 mL/min/1.73sq m eGFR calculated using average adult body mass. Additional eGFR calculator available at: http://www.[employer]/multiple_crcl_2011.htm Performed By: #### C BC, PT, PTT, BMP #### [employer] [address] [place] [id number] Electronic Device Monitor: Casey Marques MD #### RICKYT #### [employer] [address] [place] [address] Electronic Device Monitor: Adolph Diaz MD Anion gap [Moles/Vol] 8 mmol/L Low 9-17 [facility] Comment on above: Performed By: #### Rudi BC, PT, PTT, BMP #### [employer] [address] [place] [address] [id number] Electronic Device Monitor: Casey Marques MD #### ANSAMMIET #### [employer] [address] [address] Electronic Device Monitor: Adolph Diaz MD Calcium [Mass/Vol] 9.2 mg/dL Normal 8.6-10.4 [facility] Comment on above: Performed By: #### C BC, PT, PTT, BMP #### [employer] [address] [place] [id number] Electronic Device Monitor: Casey Marques MD #### ANICOT #### [email or web address] [address] [place] [address] Electronic Device Monitor: Adolph Diaz MD Chloride [Moles/Vol] 105 mmol/L Normal 98-107 [facility] Comment on above: Performed By: #### C BC, PT, PTT, BMP #### [address] [address] Electronic Device Monitor: Casey Marques MD #### ANICOT #### [facility] [address] [place] [address] Electronic Device Monitor: Adolph Diaz MD CO2 [Moles/Vol] 26 mmol/L Normal 20-31 [facility] Comment on above: Performed By: #### C BC, PT, PTT, BMP #### [address] [address] Electronic Device Monitor: Casey Marques MD #### ANICOT #### [facility] [address] [place] [address] Electronic Device Monitor: Adolph Diaz MD Creatinine [Mass/Vol] 0.67 mg/dL Normal 0.50-0.90 [facility] Comment on above: Performed By: #### C BC, PT, PTT, BMP #### [address] [address] Electronic Device Monitor: Casey Marques MD #### ANICOT #### [facility] [address] [place] [address] [id number] Electronic Device Monitor: Adolph Diaz MD GFR, Amer >60 Normal >[address] [facility] Comment on above: Performed By: #### C BC, PT, PTT, BMP #### [address] [address] Electronic Device Monitor: Casey Marques MD #### ANICOT #### [facility] [address] [place] [address] Electronic Device Monitor: Adolph Diaz MD GFR,non Amer >60 Normal >60 [facility] Comment on above: Performed By: #### C BC, PT, PTT, BMP #### [address] [address] Electronic Device Monitor: Casey Marques MD #### ANICOT #### [facility] [address] [place], [place] [id number] Electronic Device Monitor: Adolph Diaz MD Glucose [Mass/Vol] 99 mg/dL Normal 70-99 [facility] Comment on above: Performed By: #### C BC, PT, PTT, BMP #### [address] [address] Electronic Device Monitor: Casye Marques MD #### ANICOT #### [facility] [address] [place], [place] [id number] Electronic Device Monitor: Adolph Diaz MD Potassium [Moles/Vol] 4.5 mmol/L Normal 3.7-5.3 [facility] Comment on above: Performed By: #### C BC, PT, PTT, BMP #### [address] [address] Electronic Device Monitor: Casey Marques MD #### ANICOT #### [address] [id number] Electronic Device Monitor: Adolph Diaz MD Sodium [Moles/Vol] 139 mmol/L Normal 135-144 [facility] Comment on above: Performed By: #### C BC, PT, PTT, BMP #### [address] [address] Electronic Device Monitor: Casey Marques MD #### ANICOT #### [facility] [address] [place], [place] [id number] Electronic Device Monitor: Adolph Diaz MD Urea nitrogen [Mass/Vol] 5 mg/dL Low 6-20 [facility] Comment on above: Performed By: #### C BC, PT, PTT, BMP #### [address] [address] Electronic Device Monitor: Casey Marques MD #### ANICOT #### [facility] [address] [place] [address] Electronic Device Monitor: Adolph Diaz MD BUN/CRE Ratio NOT REPORTED Normal 01-05 [facility] Comment on above: Performed By: #### C BC, PT, PTT, BMP #### [facility] [place], [place] [id number] Electronic Device Monitor: Casey Marques MD #### ANICOT #### [facility] [address] [place] [address] Electronic Device Monitor: Adolph Diaz MD Staging: NOT REPORTED Normal [facility] Comment on above: Performed By: #### C BC, PT, PTT, BMP #### [facility] [address] [place] [address] Electronic Device Monitor: Casey Marques MD #### ANICOT #### [facility] [address] [place] [address] Electronic Device Monitor: Adolph Diaz MD CBC WITH AUTO DIFFERENTIALon 05-08-2020 Basophils (Bld) [#/Vol] 0.06 10*3/uL [place] Basophils/100 WBC (Bld) 1 % 0 - 2 % [place] Differential Type NOT REPORTED [place] Eosinophils (Bld) [#/Vol] 0.35 10*3/uL [place] Eosinophils/100 WBC (Bld) 3 % 1 - 4 % [place] Erythrocyte distribution width (RBC) [Ratio] 14.7 % High 11.8 - 14.4 % [place] Hematocrit (Bld) [Volume fraction] 38.4 % 36.3 - 47.1 % [place] Hemoglobin (Bld) [Mass/Vol] 12.0 g/dL 11.9 - 15.1 g/dL [place] Immature granulocytes (Bld) [#/Vol] 1 % High 0 [place] Immature granulocytes (Bld) [#/Vol] 0.06 10*3/uL [place] Interpretation and review of laboratory results Abnormal [place] Lymphocytes (Bld) [#/Vol] 2.21 10*3/uL [place] Lymphocytes/100 WBC (Bld) 21 % Low 24 - 43 % [place] MCH (RBC) [Entitic mass] 26.5 pg 25.2 - 33.5 pg [place] MCHC (RBC) [Mass/Vol] 31.3 g/dL 28.4 - 34.8 g/dL [place] MCV (RBC) [Entitic vol] 85.0 fL 82.6 - 102.9 fL [place] Monocytes (Bld) [#/Vol] 0.71 10*3/uL [place] Monocytes/100 WBC (Bld) 7 % 3 - 12 % [place] Platelet mean volume (Bld) [Entitic vol] 8.6 fL 8.1 - 13.5 fL [place] Platelets (Bld) [#/Vol] 256 10*3/uL [place] Platelets (Bld) [#/Vol] NOT REPORTED [place] RBC (Bld) [#/Vol] 4.52 10*6/uL 3.95 - 5.1 1 m/uL [place] RBC morphology finding Nom (Bld) ANISOCYTOSIS PRESENT [place] Segmented neutrophils/100 WBC (Bld) 67 % High 36 - 65 % [place] Segs Absolute 7.30 [place] WBC (Bld) [#/Vol] 10.7 10*3/uL [place] WBC (Bld) [#/Vol] 0.0 10*3/uL 0.0 per 10 0 WBC [place] WBC Morphology NOT REPORTED [place] CBC with Diffon 05-08-2020 Abs. Basophil 0.06 k/uL Normal 0.00-0.20 [facility] Comment on above: Performed By: #### C BC, PT, PTT, BMP #### [address] [address] Electronic Device Monitor: Casey Marques MD #### ANSAMMIET #### [facility] [address] [place], [place] [id number] Electronic Device Monitor: Adolph Diaz MD Abs.Imm.Granulocyte 0.06 k/uL Normal 0.00-0.30 [facility] Comment on above: Performed By: #### C BC, PT, PTT, BMP #### [address] [address] Electronic Device Monitor: Casey Marques MD #### ANSAMMIET #### [address] [id number] Electronic Device Monitor: Adolph Diaz MD Abs.Neutrophil (Seg) 7.30 k/uL Normal 1.50-8.10 [facility] Comment on above: Performed By: #### C BC, PT, PTT, BMP #### [address] [address] Electronic Device Monitor: Casey Marques MD #### ANSAMMIET #### [address] [id number] Electronic Device Monitor: Adolph Diaz MD Basophils/100 WBC (Bld) 1 % Normal 0-2 [facility] Comment on above: Performed By: #### C BC, PT, PTT, BMP #### [facility] [employer] [address] [place] [address] Electronic Device Monitor: Casey Marques MD #### ANICOT #### [facility] [address] [place] [address] Electronic Device Monitor: Adolph Diaz MD Eosinophils (Bld) [#/Vol] 0.35 10*3/uL Normal 0.00-0.44 [facility] Comment on above: Performed By: #### C BC, PT, PTT, BMP #### [email or web address] [place] [address] Electronic Device Monitor: Casey Marques MD #### ANICOT #### [facility] [address] [place], [place] [id number] Electronic Device Monitor: Adolph Diaz MD Eosinophils/100 WBC (Bld) 3 % Normal 1-4 [facility] Comment on above: Performed By: #### C BC, PT, PTT, BMP #### [email or web address] [address] [place] [address] Electronic Device Monitor: Casey Marques MD #### ANICOT #### [facility] [address] [place] [address] Electronic Device Monitor: Adolph Diaz MD Erythrocyte distribution width (RBC) [Ratio] 14.7 % High 11.8-14.4 [facility] Comment on above: Performed By: #### C BC, PT, PTT, BMP #### [facility] [employer] [address] [place] [address] Electronic Device Monitor: Casey Marques MD #### ANICOT #### [facility] [address] [place] [address] Electronic Device Monitor: Adolph Diaz MD Hematocrit (Bld) [Volume fraction] 38.4 % Normal 36.3-47.1 [facility] Comment on above: Performed By: #### C BC, PT, PTT, BMP #### [facility] [address] [place] [address] Electronic Device Monitor: Casey Marques MD #### ANICOT #### [facility] [address] [place] [address] Electronic Device Monitor: Adolph Diaz MD Hemoglobin (Bld) [Mass/Vol] 12.0 g/dL Normal 11.9-15.1 [facility] Comment on above: Performed By: #### C BC, PT, PTT, BMP #### [facility] [place] [address] Electronic Device Monitor: Casey Marques MD #### ANICOT #### [facility] [address] [place] [address] Electronic Device Monitor: Adolph Diaz MD Immature granulocytes/100 WBC (Bld) 1 % High 0 [facility] Comment on above: Performed By: #### C BC, PT, PTT, BMP #### [facility] [address] [place] [address] Electronic Device Monitor: Casey Marques MD #### ANICOT #### [facility] [address] [place], [place] [id number] Electronic Device Monitor: Adolph Diaz MD Lymphocytes (Bld) [#/Vol] 2.21 10*3/uL Normal 1.10-3.70 [facility] Comment on above: Performed By: #### C BC, PT, PTT, BMP #### [address] [address] Electronic Device Monitor: Casey Marques MD #### ANICOT #### [facility] [address] [place] [address] Electronic Device Monitor: Adolph Diaz MD Lymphocytes/100 WBC (Bld) 21 % Low 24-43 [facility] Comment on above: Performed By: #### C BC, PT, PTT, BMP #### [facility] [address] [place] [address] Electronic Device Monitor: Casey Marques MD #### ANICOT #### [facility] [address] [place] [address] Electronic Device Monitor: Adolph Diaz MD MCH (RBC) [Entitic mass] 26.5 pg Normal 25.2-33.5 [facility] Comment on above: Performed By: #### C BC, PT, PTT, BMP #### [address] [id number] Electronic Device Monitor: Casey Marques MD #### ANICOT #### [facility] [address] [place], [place] [id number] Electronic Device Monitor: Adolph Diaz MD MCHC (RBC) [Mass/Vol] 31.3 g/dL Normal 28.4-34.8 [facility] Comment on above: Performed By: #### C BC, PT, PTT, BMP #### [address] [id number] Electronic Device Monitor: Casey Marques MD #### ANICOT #### [address] [id number] Electronic Device Monitor: Adolph Diaz MD MCV (RBC) [Entitic vol] 85.0 fL Normal 82.6-102.9 [facility] Comment on above: Performed By: #### C BC, PT, PTT, BMP #### [address] [id number] Electronic Device Monitor: Casey Marques MD #### ANICOT #### [address] [id number] Electronic Device Monitor: Adolph Diaz MD Monocytes (Bld) [#/Vol] 0.71 10*3/uL Normal 0.10-1.20 [facility] Comment on above: Performed By: #### C BC, PT, PTT, BMP #### [address] [id number] Electronic Device Monitor: Casey Marques MD #### ANICOT #### [facility] [address] [place], [place] [id number] Electronic Device Monitor: Adolph Diaz MD Monocytes/100 WBC (Bld) 7 % Normal 3-12 [facility] Comment on above: Performed By: #### C BC, PT, PTT, BMP #### [address] [address] Electronic Device Monitor: Casey Marques MD #### ANICOT #### [facility] [address] [place] [address] Electronic Device Monitor: Adolph Diaz MD Neutrophil (Seg) 67 % High 36-[address] [facility] Comment on above: Performed By: #### C BC, PT, PTT, BMP #### [address] [address] Electronic Device Monitor: Casey Marques MD #### ANICOT #### [facility] [address] [place], [place] [id number] Electronic Device Monitor: Adolph Diaz MD NRBC Automated 0.0 per 100 WBC Normal 0.0 [facility] Comment on above: Performed By: #### C BC, PT, PTT, BMP #### [address] [address] Electronic Device Monitor: Casey Marques MD #### ANICOT #### [facility] [address] [place], [place] [id number] Electronic Device Monitor: Adolph Diaz MD Platelet mean volume (Bld) [Entitic vol] 8.6 fL Normal 8.1-13.5 [facility] Comment on above: Performed By: #### C BC, PT, PTT, BMP #### [address] [address] Electronic Device Monitor: Casey Marques MD #### ANICOT #### [facility] [address] [place] [address] Electronic Device Monitor: Adolph Diaz MD Platelets (Bld) [#/Vol] 256 10*3/uL Normal 138-453 [facility] Comment on above: Performed By: #### C BC, PT, PTT, BMP #### [address] [address] Electronic Device Monitor: Casey Marques MD #### ANICOT #### [facility] [address] [place], [place] [id number] Electronic Device Monitor: Adolph Diaz MD RBC (Bld) [#/Vol] 4.52 10*6/uL Normal 3.95-5.11 [facility] Comment on above: Performed By: #### C BC, PT, PTT, BMP #### [address] [id number] Electronic Device Monitor: Casey Marques MD #### ANICOT #### [address] [id number] Electronic Device Monitor: Adolph Diaz MD RBC morphology finding Nom (Bld) ANISOCYTOSIS PRESENT Normal [facility] Comment on above: Performed By: #### C BC, PT, PTT, BMP #### [address] [id number] Electronic Device Monitor: Casey Marques MD #### ANICOT #### [address] [id number] Electronic Device Monitor: Adolph Diaz MD WBC (Bld) [#/Vol] 10.7 10*3/uL Normal 3.5-11.3 [facility] Comment on above: Performed By: #### C BC, PT, PTT, BMP #### [address] [id number] Electronic Device Monitor: Casey Marques MD #### ANICOT #### [address] [id number] Electronic Device Monitor: Adolph Diaz MD Auto Diff Performed NOT REPORTED Normal [facility] Comment on above: Performed By: #### C BC, PT, PTT, BMP #### [facility] [address] [place] [address] Electronic Device Monitor: Casey Marques MD #### ANICOT #### [facility] [address] [place] [address] Electronic Device Monitor: Adolph Diaz MD Platelet Estimate NOT REPORTED Normal [facility] Comment on above: Performed By: #### C BC, PT, PTT, BMP #### [facility] [address] [place] [address] Electronic Device Monitor: Casey Marques MD #### ANICOT #### [facility] [address] [place] [address] Electronic Device Monitor: Adolph Diaz MD WBC Morphology NOT REPORTED Normal [facility] Comment on above: Performed By: #### C BC, PT, PTT, BMP #### [facility] [address] [place] [address] Electronic Device Monitor: Casey Marques MD #### ANICOT #### [facility] [address] [place] [address] Electronic Device Monitor: Adolph Diaz MD Surgical Pathologyon 021 Surgical Pathology Report -- Diagnosis -- STOMACH, SLEEVE GASTRECTOMY: - MODERATE CHRONIC INACTIVE GASTRITIS. - NEGATIVE FOR ACTIVE GASTRITIS, INTESTINAL METAPLASIA OR DYSPLASIA. Aaron Saunders M.D. Electronically Signed Out 05/08/2020 Clinical Information Pre-op Diagnosis: MORBID OBESITY, HYPOTHYROID Operative Findings: GASTRIC REMNANT Operation Performed: GASTRECTOMY SLEEVE LAPAROSCOPIC ROBOTIC, EGD Source of Specimen 1: GASTRIC REMNANT Gross Description AJZ SANDERS, GASTRIC REMNANT 21.0 x 5.5 x 4.0 cm portion of stomach with a staple line that runs along its length. The serosa is pink-banuelos and the mucosa is pink-red with no areas of granularity or masses. [employer] sections 1cs. tm Microscopic Description Sections of gastric mucosa show increased lymphocytes and plasma cells in the lamina propria. There is no evidence of acute inflammation, intestinal metaplasia or dysplasia. There is no evidence of organisms suspicious for Helicobacter with the routine H&E stains. SURGICAL PATHOLOGY CONSULTATION Patient Name: JAZ SANDERS [facility] Rec: [id number] Path Number: [id number] [facility] ANATOMIC PATHOLOGY [address] [place] [address]. [place], [place] [address] [place] Basic Metabolic Panelon 04-19 Anion gap [Moles/Vol] 13 mmol/L 9 - 17 mmol/L [place] Bun/Cre Ratio NOT REPORTED [place] Calcium [Mass/Vol] 9.4 mg/dL 8.6 - 10. 4 mg/dL [place] Chloride [Moles/Vol] 104 mmol/L 98 - 10 7 mmol/L [place] CO2 [Moles/Vol] 23 mmol/L 20 - 31 mmol/L [place] Creatinine [Mass/Vol] 0.73 mg/dL 0.5 - 0.9 mg/dL [place] GFR >60 >60 mL/min [place] GFR Non- >60 >60 mL/min [place] GFR/1.73 sq M predicted among non-blacks MDRD (S/P/Bld) [Vol rate/Area] NOT REPORTED [place] GFR/1.73 sq M predicted among non-blacks MDRD (S/P/Bld) [Vol rate/Area] [place] Comment on above: Average GFR for 20-2 9 years old: 116 mL/min/1.73sq m Chronic Kidney Disease: <60 mL/min/1.73sq m Kidney failure: <15 mL/min/1.73sq m eGFR calculated using average adult body mass. Additional eGFR calculator available at: http://www.[employer]/multiple_crcl_2012.htm Glucose [Mass/Vol] 98 mg/dL 70 - 99 mg/dL [place] Potassium [Moles/Vol] 4.1 mmol/L 3.7 - 5.3 mmol/L [place] Sodium [Moles/Vol] 140 mmol/L 135 - 144 mmol/L [place] Urea nitrogen [Mass/Vol] 6 mg/dL 6 - 20 mg/dL [place] Basic Metabolic Profon 05-07 (cont.) Normal [facility] Comment on above: Result Comment: Aver age GFR for 20-29 years old: 116 mL/min/1.73sq m Chronic Kidney Disease: <60 mL/min/1.73sq m Kidney failure: <15 mL/min/1.73sq m eGFR calculated using average adult body mass. Additional eGFR calculator available at: http://www.[employer]/multiple_crcl_2011.htm Performed By: #### C BC, BMP #### [facility] [address] [place] [address] Electronic Device Monitor: Casey Marques MD Anion gap [Moles/Vol] 13 mmol/L Normal 9-17 [facility] Comment on above: Performed By: #### C BC, BMP #### [facility] [address] [place] [address] Electronic Device Monitor: Casey Marques MD Calcium [Mass/Vol] 9.4 mg/dL Normal 8.6-10.4 [facility] Comment on above: Performed By: #### C BC, BMP #### [facility] [address] [place] [address] Electronic Device Monitor: Casey Marques MD Chloride [Moles/Vol] 104 mmol/L Normal 98-107 [facility] Comment on above: Performed By: #### C BC, BMP #### [facility] [address] [place] [address] Electronic Device Monitor: Casey Marques MD CO2 [Moles/Vol] 23 mmol/L Normal 20-31 [facility] Comment on above: Performed By: #### C BC, BMP #### [facility] [address] [place] [address] Electronic Device Monitor: Casey Marques MD Creatinine [Mass/Vol] 0.73 mg/dL Normal 0.50-0.90 [facility] Comment on above: Performed By: #### C BC, BMP #### [facility] [address] [place] [address] Electronic Device Monitor: Casey Marques MD GFR, Amer >60 Normal >[address] [facility] Comment on above: Performed By: #### C BC, BMP #### [facility] [employer] [address] [place] [address] Electronic Device Monitor: Casey Marques MD GFR,non Amer >60 Normal >60 [facility] Comment on above: Performed By: #### C BC, BMP #### [facility] [employer] [address] [place] [address] Electronic Device Monitor: Casey Marques MD Glucose [Mass/Vol] 98 mg/dL Normal 70-99 [facility] Comment on above: Performed By: #### C BC, BMP #### [facility] [employer] [address] [place] [address] Electronic Device Monitor: Casey Marques MD Potassium [Moles/Vol] 4.1 mmol/L Normal 3.7-5.3 [facility] Comment on above: Performed By: #### C BC, BMP #### [facility] [employer] [address] [place] [address] Electronic Device Monitor: Casey Marques MD Sodium [Moles/Vol] 140 mmol/L Normal 135-144 [facility] Comment on above: Performed By: #### C BC, BMP #### [facility] [employer] [address] [place] [address] Electronic Device Monitor: Casey Marques MD Urea nitrogen [Mass/Vol] 6 mg/dL Normal 6-20 [facility] Comment on above: Performed By: #### C BC, BMP #### [facility] [address] [place] [address] Electronic Device Monitor: Casey Marques MD BUN/CRE Ratio NOT REPORTED Normal 01-05 [facility] Comment on above: Performed By: #### C BC, BMP #### [facility] [address] [place] [address] Electronic Device Monitor: Casey Marques MD Staging: NOT REPORTED Normal [facility] Comment on above: Performed By: #### C BC, BMP #### [facility] [address] [place] [address] Electronic Device Monitor: Casey Marques MD CBCon 05-07-2020 Erythrocyte distribution width (RBC) [Ratio] 14.4 % Normal 11.8-14.4 [facility] Comment on above: Performed By: #### C BC, BMP #### [facility] [employer] [address] [place] [address] Electronic Device Monitor: Casey Marques MD Hematocrit (Bld) [Volume fraction] 40.4 % Normal 36.3-47.1 [facility] Comment on above: Performed By: #### C BC, BMP #### [facility] [address] [place] [address] Electronic Device Monitor: Casey Marques MD Hemoglobin (Bld) [Mass/Vol] 12.6 g/dL Normal 11.9-15.1 [facility] Comment on above: Performed By: #### C BC, BMP #### [facility] [address] [place] [address] Electronic Device Monitor: Casey Marques MD MCH (RBC) [Entitic mass] 26.1 pg Normal 25.2-33.5 [facility] Comment on above: Performed By: #### C BC, BMP #### [facility] [address] [place] [address] Electronic Device Monitor: Casey Marques MD MCHC (RBC) [Mass/Vol] 31.2 g/dL Normal 28.4-34.8 [facility] Comment on above: Performed By: #### C BC, BMP #### [address] [address] Electronic Device Monitor: Casey Marques MD MCV (RBC) [Entitic vol] 83.8 fL Normal 82.6-102.9 [facility] Comment on above: Performed By: #### C BC, BMP #### [address] [address] Electronic Device Monitor: Casey Marques MD NRBC Automated 0.0 per 100 WBC Normal 0.0 [facility] Comment on above: Performed By: #### C BC, BMP #### [address] [address] Electronic Device Monitor: Casey Marques MD Platelet mean volume (Bld) [Entitic vol] 8.7 fL Normal 8.1-13.5 [facility] Comment on above: Performed By: #### C BC, BMP #### [address] [address] Electronic Device Monitor: Casey Marques MD Platelets (Bld) [#/Vol] 289 10*3/uL Normal 138-453 [facility] Comment on above: Performed By: #### C BC, BMP #### [address] [address] Electronic Device Monitor: Casey Marques MD RBC (Bld) [#/Vol] 4.82 10*6/uL Normal 3.95-5.11 [facility] Comment on above: Performed By: #### C BC, BMP #### [address] [address] Electronic Device Monitor: Casey Marques MD WBC (Bld) [#/Vol] 13.7 10*3/uL High 3.5-11.3 [facility] Comment on above: Performed By: #### C , [facility] #### [facility] [employer] [address] [place] [address] Electronic Device Monitor: Casey Marques MD Erythrocyte distribution width (RBC) [Ratio] 14.4 % 11.8 - 14.4 % [place] Hematocrit (Bld) [Volume fraction] 40.4 % 36.3 - 47.1 % [place] Hemoglobin (Bld) [Mass/Vol] 12.6 g/dL 11.9 - 15.1 g/dL [place] Interpretation and review of laboratory results Abnormal [place] MCH (RBC) [Entitic mass] 26.1 pg 25.2 - 33.5 pg [place] MCHC (RBC) [Mass/Vol] 31.2 g/dL 28.4 - 34.8 g/dL [place] MCV (RBC) [Entitic vol] 83.8 fL 82.6 - 102.9 fL [place] Platelet mean volume (Bld) [Entitic vol] 8.7 fL 8.1 - 13.5 fL [place] Platelets (Bld) [#/Vol] 289 10*3/uL [place] RBC (Bld) [#/Vol] 4.82 10*6/uL 3.95 - 5.1 1 m/uL [place] WBC (Bld) [#/Vol] 0.0 10*3/uL 0.0 per 10 0 WBC [place] WBC (Bld) [#/Vol] 13.7 10*3/uL [place] ESOPHAGRAMon 05-07-2020 [place] ESOPHAGRAM EXAMINATION: [...] MD 05/07/20 Final result Normal [facility] EXAMINATION: SINGLE CONTRAST ESOPHAGRAM 05/07/2020 HISTORY: ORDERING [...] sleeve. No obstruction. No extravasation of contrast. [place], [facility] Incoming Radiant Results From [employer] - 05/07/2020 10:04 AM EST EXAMINATION: SINGLE [...] of contrast. IMPRESSION: No extravasation of contrast. [place] No extravasation of contrast. [place] POCT urine pregnancyon 05-07 Beta HCG ( test) Ql (U) Negative NEGATIVE [place] Comment on above: Specimens with hCG [...] [Moles/Vol] 10 mmol/L 9 - 17 mmol/L [place] Bun/Cre Ratio NOT REPORTED [place] Calcium [Mass/Vol] 9.5 mg/dL 8.6 - 10. 4 mg/dL [place] Chloride [Moles/Vol] 103 mmol/L 98 - 10 7 mmol/L [place] CO2 [Moles/Vol] 19 mmol/L Low 20 - 31 mmol/L [place] Creatinine [Mass/Vol] 0.9 mg/dL 0.5 - 0.9 mg/dL [place] GFR >60 >60 mL/min [place] GFR Non- >60 >60 mL/min [place] GFR/1.73 sq M predicted among non-blacks MDRD (S/P/Bld) [Vol rate/Area] NOT REPORTED [place] GFR/1.73 sq M predicted among non-blacks MDRD (S/P/Bld) [Vol rate/Area] [place], [place] Comment on above: Average GFR for 20-2 9 years old: 116 mL/min/1.73sq m Chronic Kidney Disease: <60 mL/min/1.73sq m Kidney failure: <15 mL/min/1.73sq m eGFR calculated using average adult body mass. Additional eGFR calculator available at: http://www.[employer]/multiple_crcl_2012.htm Glucose [Mass/Vol] 162 mg/dL High 70 - 99 mg/dL [place] Interpretation and review of laboratory results Abnormal [place] Potassium [Moles/Vol] 3.9 mmol/L 3.7 - 5.3 mmol/L [place] Sodium [Moles/Vol] 132 mmol/L Low 135 - 144 mmol/L [place] Urea nitrogen [Mass/Vol] 10 mg/dL 6 - 20 mg/dL [place] Basic Metabolic Profon 05-06 (cont.) Normal [facility] Comment on above: Result Comment: Aver age GFR for 20-29 years old: 116 mL/min/1.73sq m Chronic Kidney Disease: <60 mL/min/1.73sq m Kidney failure: <15 mL/min/1.73sq m eGFR calculated using average adult body mass. Additional eGFR calculator available at: http://www.[employer]/multiple_crcl_2012.htm Performed By: #### C BC, BMP #### [facility] [employer] [address] [place] [address] Electronic Device Monitor: Casey Marques MD Anion gap [Moles/Vol] 10 mmol/L Normal 9-17 [facility] Comment on above: Performed By: #### C BC, BMP #### [facility] [employer] [address] [place] [address] Electronic Device Monitor: Casey Marques MD Calcium [Mass/Vol] 9.5 mg/dL Normal 8.6-10.4 [facility] Comment on above: Performed By: #### C BC, BMP #### [facility] [employer] [address] [place] [address] Electronic Device Monitor: Casey Marques MD Chloride [Moles/Vol] 103 mmol/L Normal 98-107 [facility] Comment on above: Performed By: #### C BC, BMP #### [facility] [employer] [address] [place] [address] Electronic Device Monitor: Casey Marques MD CO2 [Moles/Vol] 19 mmol/L Low 20-31 [facility] Comment on above: Performed By: #### C BC, BMP #### [facility] [employer] [address] [place] [address] Electronic Device Monitor: Casey Marques MD Creatinine [Mass/Vol] 0.90 mg/dL Normal 0.50-0.90 [facility] Comment on above: Performed By: #### C BC, BMP #### [facility] [address] [place] [address]39 Electronic Device Monitor: Casey Marques MD GFR, Amer >60 Normal >[address] [facility] Comment on above: Performed By: #### C BC, BMP #### [facility] [employer] [address] [place] [address]17 Electronic Device Monitor: Casey Marques MD GFR,non Amer >60 Normal >60 [facility] Comment on above: Performed By: #### C BC, BMP #### [facility] [address] [place] [address] Electronic Device Monitor: Casey Marques MD Glucose [Mass/Vol] 162 mg/dL High 70-99 [facility] Comment on above: Performed By: #### C BC, BMP #### [address] [address] Electronic Device Monitor: Casey Marques MD Potassium [Moles/Vol] 3.9 mmol/L Normal 3.7-5.3 [facility] Comment on above: Performed By: #### C BC, BMP #### [address] [address] Electronic Device Monitor: Casey Marques MD Sodium [Moles/Vol] 132 mmol/L Low 135-144 [facility] Comment on above: Performed By: #### C BC, BMP #### [facility] [employer] [address] [place] [address] Electronic Device Monitor: Casey Marques MD Urea nitrogen [Mass/Vol] 10 mg/dL Normal 6-20 [facility] Comment on above: Performed By: #### C BC, BMP #### [facility] [employer] [address] [place] [address] Electronic Device Monitor: Casey Marques MD BUN/CRE Ratio NOT REPORTED Normal 9-20 [facility] Comment on above: Performed By: #### C BC, BMP #### [address] [address] Electronic Device Monitor: Casey Marques MD Staging: NOT REPORTED Normal [facility] Comment on above: Performed By: #### C BC, BMP #### [address] [address] Electronic Device Monitor: Casey Marques MD CBCon 05-06-2020 Erythrocyte distribution width (RBC) [Ratio] 14.6 % High 11.8-14.4 [facility] Comment on above: Performed By: #### C BC, BMP #### [address] [address] Electronic Device Monitor: Casey Marques MD Hematocrit (Bld) [Volume fraction] 42.5 % Normal 36.3-47.1 [facility] Comment on above: Performed By: #### C BC, BMP #### [address] [address] Electronic Device Monitor: Casey Marques MD Hemoglobin (Bld) [Mass/Vol] 12.8 g/dL Normal 11.9-15.1 [facility] Comment on above: Performed By: #### C BC, BMP #### [address] [address] Electronic Device Monitor: Casey Marques MD MCH (RBC) [Entitic mass] 26.9 pg Normal 25.2-33.5 [facility] Comment on above: Performed By: #### C BC, BMP #### [facility] [email or web address] [address] [place] [address] Electronic Device Monitor: Casey Marques MD MCHC (RBC) [Mass/Vol] 30.1 g/dL Normal 28.4-34.8 [facility] Comment on above: Performed By: #### C BC, BMP #### [address] [address] Electronic Device Monitor: Casey Marques MD MCV (RBC) [Entitic vol] 89.3 fL Normal 82.6-102.9 [facility] Comment on above: Performed By: #### C BC, BMP #### [address] [address] Electronic Device Monitor: Casey Marques MD NRBC Automated 0.0 per 100 WBC Normal 0.0 [facility] Comment on above: Performed By: #### C BC, BMP #### [address] [address] Electronic Device Monitor: Casey Marques MD Platelet mean volume (Bld) [Entitic vol] 8.4 fL Normal 8.1-13.5 [facility] Comment on above: Performed By: #### C BC, BMP #### [address] [address] Electronic Device Monitor: Casey Marques MD Platelets (Bld) [#/Vol] 300 10*3/uL Normal 138-453 [facility] Comment on above: Performed By: #### C BC, BMP #### [address] [address] Electronic Device Monitor: Casey Marques MD RBC (Bld) [#/Vol] 4.76 10*6/uL Normal 3.95-5.11 [facility] Comment on above: Performed By: #### C BC, BMP #### [address] [address] Electronic Device Monitor: Casey Marques MD WBC (Bld) [#/Vol] 14.3 10*3/uL High 3.5-11.3 [facility] Comment on above: Performed By: #### C BC, BMP #### [address] [address] Electronic Device Monitor: Casey Marques MD CBC without Diffon Erythrocyte distribution width (RBC) [Ratio] 14.6 % High 11.8 - 14.4 % [place] Hematocrit (Bld) [Volume fraction] 42.5 % 36.3 - 47.1 % [place] Hemoglobin (Bld) [Mass/Vol] 12.8 g/dL 11.9 - 15.1 g/dL [place] Interpretation and review of laboratory results Abnormal [place] MCH (RBC) [Entitic mass] 26.9 pg 25.2 - 33.5 pg [place] MCHC (RBC) [Mass/Vol] 30.1 g/dL 28.4 - 34.8 g/dL [place] MCV (RBC) [Entitic vol] 89.3 fL 82.6 - 102.9 fL [place] Platelet mean volume (Bld) [Entitic vol] 8.4 fL 8.1 - 13.5 fL [place] Platelets (Bld) [#/Vol] 300 10*3/uL [place] RBC (Bld) [#/Vol] 4.76 10*6/uL 3.95 - 5.1 1 m/uL [place] WBC (Bld) [#/Vol] 14.3 10*3/uL [place] WBC (Bld) [#/Vol] 0.0 10*3/uL 0.0 per 10 0 WBC [place] Surgical Pathologyon Surgical Pathology (NOTE) -- Diagnosis -- STOMACH, [...] with no areas of granularity or masses. [employer] sections 1cs. tm Microscopic Description Sections of gastric mucosa show increased lymphocytes and plasma cells in the lamina propria. There is no evidence of acute inflammation, intestinal metaplasia or dysplasia. There is no evidence of organisms suspicious for Helicobacter with the routine BRI stains. SURGICAL PATHOLOGY CONSULTATION Patient Name: JAZ SANDERS Rec: [id number] Path Number: [id number] [facility] ANATOMIC PATHOLOG[facility] [address] [place] [id number] [facility] Comment on above: Performed By: #### C BC, PT, PTT, BMP #### [address] [address] Electronic Device Monitor: Casey Marques MD #### ANICOT #### [facility] [address] [place] [address] Electronic Device Monitor: Adolph Diaz MD [id number] 05-04-2020 SARS-CoV-2 [facility] Comment on above: Performed By: #### C OVID #### [address] [address] Electronic Device Monitor: Casey Marques MD SARS-CoV-2 Not Detected [facility] Comment on above: Result Comment: The specimen is NEGATIVE for SARS-CoV-2, the novel coronavirus associated with COVID-19. A negative result does not rule out COVID-19. Bernard SARS-CoV-2 for use on the Bernard [employer] is a real-time RT-PCR test intended [...] this assay. Fact sheet for Healthcare Providers: https://www.fda.gov/media/069984/download Fact sheet for Patients: https://www.fda.gov/media/896348/download METHODOLOGY: RT-PCR Performed By: #### C OVID #### [address] [address] Electronic Device Monitor: Casey Marques MD SARS-CoV-2,Rapid [facility] Comment on above: Performed By: #### C OVID #### [address] [address] Electronic Device Monitor: Casey Marques MD [id number] 05-03-2020 SARS-CoV-2 Source .NASOPHARYNGEAL SWAB [facility] Comment on above: Performed By: #### C OVID #### [address] [address] Electronic Device Monitor: Casey Marques MD Nicotineon 0 [id number] <2 [facility] Comment on above: Performed By: #### C BC, PT, PTT, BMP #### [facility] [employer] [address] [place] [address] Electronic Device Monitor: Casey Marques MD #### ANICOT #### [facility] [address] [place], [place] [id number] Electronic Device Monitor: Adolph Diaz MD Cotinine <2 [facility] Comment on above: Performed By: #### C BC, PT, PTT, BMP #### [facility] [address] [place] [address] Electronic Device Monitor: Casey Marques MD #### ANICOT #### [facility] [address] [place], [place] [id number] Electronic Device Monitor: Adolph Diaz MD Nicotine <2 [facility] Comment on above: Result Comment: (NOT [...] positive. Test developed and characteristics determined by [employer]. See Compliance Statement B: [employer] Performed By: [facility] [address] [place] [address] Battery Installer: Lynn Layne MD Performed By: #### C BC, PT, PTT, BMP #### [facility] [address] [place] [address] Electronic Device Monitor: Casey Marques MD #### ANICOT #### [facility] [address] [place] [address] Electronic Device Monitor: Adolph Diaz MD Nicotine, Bloodon 04-26-2020 [id number] <2 ng/mL [facility], [place] Cotinine <2 ng/mL [facility] Nicotine <2 ng/mL [facility], [place] Comment on above: (NOTE) Consistent [...] positive. Test developed and characteristics determined by [employer]. See Compliance Statement B: [employer] Performed By: [facility] [address] [place] [address] Battery Installer: Lynn Layne MD EKG 12 Leadon 04-23-2020 Atrial Rate 95 BPM [place], [place] P [place] 14 degrees [place] P-R Interval 134 ms [facility], [place] Q-T Interval 398 ms [facility] QRS Duration 94 ms [place], [place] QTc Calculation (Bazett) 500 ms [place], [place] R [place] 15 degrees [facility], [place] T [place] 32 degrees [facility] Ventricular Rate 95 BPM [place], [place] Normal sinus rhythm with sinus arrhythmia Prolonged QT Abnormal ECG No previous ECGs available [place], [place] Julius, Mhpn Incoming E kg Results From [facility] - 04/23/2020 12:32 PM EST Normal sinus rhythm with sinus arrhythmia Prolonged QT Abnormal ECG No previous ECGs available [place] APTTon 04-22-2020 aPTT Coag (Bld) [Time] 22.2 s Normal 20.5-30.5 [facility] Comment on above: Result Comment: IV Heparin Therapy Range: 48.6-77.8 Performed By: #### C BC, PT, PTT, BMP #### [facility] [address] [place] [address] Electronic Device Monitor: aCsey Marques MD #### ANICOT #### [facility] [address] [place] [address] Electronic Device Monitor: Adolph Diaz MD aPTT Coag (Bld) [Time] 22.2 [place] Comment on above: IV Heparin Therapy Range: 48.6-77.8 Basic Metabolic Panelon Anion gap [Moles/Vol] 12 mmol/L 9 - 17 mmol/L [place] Bun/Cre Ratio NOT REPORTED [place] Calcium [Mass/Vol] 9.2 mg/dL 8.6 - 10. 4 mg/dL [place] Chloride [Moles/Vol] 104 mmol/L 98 - 10 7 mmol/L [place] CO2 [Moles/Vol] 23 mmol/L 20 - 31 mmol/L [place] Creatinine [Mass/Vol] 0.69 mg/dL 0.5 - 0.9 mg/dL [place] GFR >60 >60 mL/min [place] GFR Non- >60 >60 mL/min [place] GFR/1.73 sq M predicted among non-blacks MDRD (S/P/Bld) [Vol rate/Area] NOT REPORTED [place] GFR/1.73 sq M predicted among non-blacks MDRD (S/P/Bld) [Vol rate/Area] [place] Comment on above: Average GFR for 20-2 9 years old: 116 mL/min/1.73sq m Chronic Kidney Disease: <60 mL/min/1.73sq m Kidney failure: <15 mL/min/1.73sq m eGFR calculated using average adult body mass. Additional eGFR calculator available at: http://www.[employer]/multiple_crcl_2011.htm Glucose [Mass/Vol] 123 mg/dL High 70 - 99 mg/dL [place] Interpretation and review of laboratory results Abnormal [place] Potassium [Moles/Vol] 4.1 mmol/L 3.7 - 5.3 mmol/L [place] Sodium [Moles/Vol] 139 mmol/L 135 - 144 mmol/L [place] Urea nitrogen [Mass/Vol] 7 mg/dL 6 - 20 mg/dL [place] Basic Metabolic Profon 04-22 (cont.) Normal [facility] Comment on above: Result Comment: Aver age GFR for 20-29 years old: 116 mL/min/1.73sq m Chronic Kidney Disease: <60 mL/min/1.73sq m Kidney failure: <15 mL/min/1.73sq m eGFR calculated using average adult body mass. Additional eGFR calculator available at: http://www.[employer]/multiple_crcl_2012.htm Performed By: #### C BC, PT, PTT, BMP #### [facility] [address] [place] [address] Electronic Device Monitor: Casey Marques MD #### ANICOT #### [facility] [address] [place] [address] Electronic Device Monitor: Adolph Diaz MD Anion gap [Moles/Vol] 12 mmol/L Normal 9-17 [facility] Comment on above: Performed By: #### C BC, PT, PTT, BMP #### [employer] [address] [place] [address] [id number] Electronic Device Monitor: Casey Marques MD #### ANICOT #### [facility] [address] [place] [address] Electronic Device Monitor: Adolph Diaz MD Calcium [Mass/Vol] 9.2 mg/dL Normal 8.6-10.4 [facility] Comment on above: Performed By: #### C BC, PT, PTT, BMP #### [employer] [address] [place] [address] [phone] Electronic Device Monitor: Casey Marques MD #### ANICOT #### [facility] [address] [place] [address] Electronic Device Monitor: Adolph Diaz MD Chloride [Moles/Vol] 104 mmol/L Normal 98-107 [facility] Comment on above: Performed By: #### C BC, PT, PTT, BMP #### [employer] [address] [place] [address] Electronic Device Monitor: Casey Marques MD #### ANICOT #### [facility] [address] [place], [place] [id number] Electronic Device Monitor: Adolph Diaz MD CO2 [Moles/Vol] 23 mmol/L Normal 20-31 [facility] Comment on above: Performed By: #### C BC, PT, PTT, BMP #### [address] [address] Electronic Device Monitor: Casey Marques MD #### ANICOT #### [facility] [address] [place], [place] [id number] Electronic Device Monitor: Adolph Diaz MD Creatinine [Mass/Vol] 0.69 mg/dL Normal 0.50-0.90 [facility] Comment on above: Performed By: #### C BC, PT, PTT, BMP #### [address] [address] Electronic Device Monitor: Casey Marques MD #### ANICOT #### [facility] [address] [place], [place] [id number] Electronic Device Monitor: Adolph Diaz MD GFR, Amer >60 Normal >[address] [facility] Comment on above: Performed By: #### C BC, PT, PTT, BMP #### [address] [address] Electronic Device Monitor: Casey Marques MD #### ANICOT #### [facility] [address] [place], [place] [id number] Electronic Device Monitor: Adolph Diaz MD GFR,non Amer >60 Normal >60 [facility] Comment on above: Performed By: #### C BC, PT, PTT, BMP #### [facility] [address] [place] [address] Electronic Device Monitor: Casey Marques MD #### ANICOT #### [facility] [address] [place] [address] Electronic Device Monitor: Adolph Diaz MD Glucose [Mass/Vol] 123 mg/dL High 70-99 [facility] Comment on above: Performed By: #### C BC, PT, PTT, BMP #### [address] [address] Electronic Device Monitor: Casey Marques MD #### ANICOT #### [facility] [address] [place] [address] Electronic Device Monitor: Adolph Diaz MD Potassium [Moles/Vol] 4.1 mmol/L Normal 3.7-5.3 [facility] Comment on above: Performed By: #### C BC, PT, PTT, BMP #### [address] [address] Electronic Device Monitor: Casey Marques MD #### ANICOT #### [facility] [address] [place] [address] [id number] Electronic Device Monitor: Adolph Diaz MD Sodium [Moles/Vol] 139 mmol/L Normal 135-144 [facility] Comment on above: Performed By: #### C BC, PT, PTT, BMP #### [address] [address] Electronic Device Monitor: Casey Marques MD #### ANICOT #### [facility] [address] [place] [address] Electronic Device Monitor: Adolph Diaz MD Urea nitrogen [Mass/Vol] 7 mg/dL Normal 6-20 [facility] Comment on above: Performed By: #### C BC, PT, PTT, BMP #### [address] [address] Electronic Device Monitor: Casey Marques MD #### ANICOT #### [facility] [address] [place], [place] [id number] Electronic Device Monitor: Adolph Diaz MD BUN/CRE Ratio NOT REPORTED Normal 9-20 [facility] Comment on above: Performed By: #### C BC, PT, PTT, BMP #### [address] [address] Electronic Device Monitor: Casey Marques MD #### ANICOT #### [facility] [address] [place] [address] Electronic Device Monitor: Adolph Diaz MD Staging: NOT REPORTED Normal [facility] Comment on above: Performed By: #### C BC, PT, PTT, BMP #### [address] [address] Electronic Device Monitor: Casey Marques MD #### ANICOT #### [facility] [address] [place] [address] Electronic Device Monitor: Adolph Diaz MD [facility] 04-22-2020 Erythrocyte distribution width (RBC) [Ratio] 14.6 % High 11.8-14.4 [facility] Comment on above: Performed By: #### C BC, PT, PTT, BMP #### [address] [address] Electronic Device Monitor: Casey Marques MD #### ANICOT #### [facility] [address] [place] [address] Electronic Device Monitor: Adolph Diaz MD Hematocrit (Bld) [Volume fraction] 40.8 % Normal 36.3-47.1 [facility] Comment on above: Performed By: #### C BC, PT, PTT, BMP #### [address] [address] Electronic Device Monitor: Casey Marques MD #### ANICOT #### [facility] [address] [place] [address] Electronic Device Monitor: Adolph Diaz MD Hemoglobin (Bld) [Mass/Vol] 12.8 g/dL Normal 11.9-15.1 [facility] Comment on above: Performed By: #### C BC, PT, PTT, BMP #### [address] [address] Electronic Device Monitor: Casey Marques MD #### ANICOT #### [address] [id number] Electronic Device Monitor: Adolph Diaz MD MCH (RBC) [Entitic mass] 26.5 pg Normal 25.2-33.5 [facility] Comment on above: Performed By: #### C BC, PT, PTT, BMP #### [address] [id number] Electronic Device Monitor: Casey Marques MD #### ANICOT #### [address] [id number] Electronic Device Monitor: Adolph Diaz MD MCHC (RBC) [Mass/Vol] 31.4 g/dL Normal 28.4-34.8 [facility] Comment on above: Performed By: #### C BC, PT, PTT, BMP #### [address] [phone] Electronic Device Monitor: Casey Marques MD #### ANICOT #### [facility] [address] [place] [address] Electronic Device Monitor: Adolph Diaz MD MCV (RBC) [Entitic vol] 84.5 fL Normal 82.6-102.9 [facility] Comment on above: Performed By: #### C BC, PT, PTT, BMP #### [address] [id number] Electronic Device Monitor: Casey Marques MD #### ANICOT #### [address] [address] Electronic Device Monitor: Adolph Diaz MD NRBC Automated 0.0 per 100 WBC Normal 0.0 [facility] Comment on above: Performed By: #### C BC, PT, PTT, BMP #### [address] [address] Electronic Device Monitor: Casey Marques MD #### ANICOT #### [facility] [address] [place] [address] Electronic Device Monitor: Adolph Diaz MD Platelet mean volume (Bld) [Entitic vol] 8.7 fL Normal 8.1-13.5 [facility] Comment on above: Performed By: #### C BC, PT, PTT, BMP #### [address] [address] Electronic Device Monitor: Casey Marques MD #### ANICOT #### [address] [address] Electronic Device Monitor: Adolph Diaz MD Platelets (Bld) [#/Vol] 298 10*3/uL Normal 138-453 [facility] Comment on above: Performed By: #### C BC, PT, PTT, BMP #### [address] [address] Electronic Device Monitor: Casey Marques MD #### ANICOT #### [facility] [address] [place] [address] Electronic Device Monitor: Adolph Diaz MD RBC (Bld) [#/Vol] 4.83 10*6/uL Normal 3.95-5.11 [facility] Comment on above: Performed By: #### C BC, PT, PTT, BMP #### [address] [address] Electronic Device Monitor: Casey Marques MD #### ANICOT #### [facility] [address] [place] [address] Electronic Device Monitor: Adolph Diaz MD WBC (Bld) [#/Vol] 10.8 10*3/uL Normal 3.5-11.3 [facility] Comment on above: Performed By: #### C BC, PT, PTT, BMP #### [facility] [address] [place], [place] [id number] Electronic Device Monitor: Casey Marques MD #### ANICOT #### [facility] [address] [place] [address] Electronic Device Monitor: Adolph Diaz MD Erythrocyte distribution width (RBC) [Ratio] 14.6 % High 11.8 - 14.4 % [place] Hematocrit (Bld) [Volume fraction] 40.8 % 36.3 - 47.1 % [place] Hemoglobin (Bld) [Mass/Vol] 12.8 g/dL 11.9 - 15.1 g/dL [place] Interpretation and review of laboratory results Abnormal [place] MCH (RBC) [Entitic mass] 26.5 pg 25.2 - 33.5 pg [place] MCHC (RBC) [Mass/Vol] 31.4 g/dL 28.4 - 34.8 g/dL [place] MCV (RBC) [Entitic vol] 84.5 fL 82.6 - 102.9 fL [place] Platelet mean volume (Bld) [Entitic vol] 8.7 fL 8.1 - 13.5 fL [place] Platelets (Bld) [#/Vol] 298 10*3/uL [place] RBC (Bld) [#/Vol] 4.83 10*6/uL 3.95 - 5.1 1 m/uL [place] WBC (Bld) [#/Vol] 10.8 10*3/uL [place] WBC (Bld) [#/Vol] 0.0 10*3/uL 0.0 per 10 0 WBC [place] Otheron 04-22-2020 No acute cardiopulmonary [facility] TWO XRA Y VIEWS OF THE CHEST 04/22/2020 2:46 pm COMPARISON: Baseline examination HISTORY: ORDERING SYSTEM PROVIDED HISTORY: preop gastric bypass [employer] TECHNOLOGIST PROVIDED HISTORY: preop gastric bypass [employer] Reason for Exam: preop gastric bypass FINDINGS: Normal cardiopericardial silhouette There are no significant pleural, parenchymal, mediastinal or osseous findings [facility] Mhpn Incoming Radiant Results From [employer] in - 04/22/2020 3:28 PM EST EXAMINATION: TWO XRAY VIEWS OF THE CHEST 04/22/2020 2:46 pm COMPARISON: Baseline examination HISTORY: ORDERING SYSTEM PROVIDED HISTORY: preop gastric bypass [employer] TECHNOLOGIST PROVIDED HISTORY: preop gastric bypass [employer] Reason for Exam: preop gastric bypass FINDINGS: Normal cardiopericardial silhouette There are no significant pleural, parenchymal, mediastinal or osseous findings IMPRESSION: No acute cardiopulmonary findings [facility] PT[facility] 04-22-2020 INR Coag (PPP) [Relative time] 0.9 {INR} Normal [facility] Comment on above: Result Comment: Therapeutic Range: Moderate Anticoagulant Intensity: INR = 2.0-3.0 High Anticoagulant Intensity: INR = 2.5-3.5 Performed By: #### C BC, PT, PTT, BMP #### [employer] [address] [place] [address] [id number] Electronic Device Monitor: Casey Marques MD #### ANICOT #### [facility] [address] [place] [address] Electronic Device Monitor: Adolph Diaz MD PT Coag (PPP) [Time] 9.3 s Normal 9.0-12.0 [facility] Comment on above: Performed By: #### C BC, PT, PTT, BMP #### [employer] [address] [place] [id number] Electronic Device Monitor: Casey Marques MD #### RICKYT #### [facility] [address] [place] [address] Electronic Device Monitor: Adolph Diaz MD [facility]INRon 04-22-2020 INR Coag (PPP) [Relative time] 0.9 {INR} [place], [place] Comment on above: Therapeutic Range: Moderate Anticoagulant Intensity: INR = 2.0-3.0 High Anticoagulant Intensity: INR = 2.5-3.5 PT Coag (PPP) [Time] 9.3 s [place], [place] XR CHEST (2 VW)on 04-22-2020 XR [...] MD 04/22/20 Final result Normal [facility] Vital Signs Date Time Vital Sign Value Performing Clinician [facility]-19-2024 10:01-0400 Body mass index (BMI) [Ratio] 36.79 kg/m2 Jojo OGDEN Work Phone: [facility] 12-19-2024 10:01-0400 Body weight 119.66 kg Jojo OGDEN Work Phone: [facility] 12-19-2024 10:01-0400 Diastolic blood pressure 60 mm[Hg] Jojo OGDEN Work Phone: [facility] 12-19-2024 10:01-0400 Systolic blood pressure 118 mm[Hg] Jojo OGDEN Work Phone: [facility] 12-05-2024 12:46-0400 Body height 180.3 cm Latricia Lindquist MD Work Phone: [facility] [employer] 12-05-2024 12:46-0400 Body mass index (BMI) [Ratio] 35.84 kg/m2 Latricia Lindquist MD Work Phone: [facility] 12-05-2024 12:46-0400 Body weight 116.57 kg Latricia Lindquist MD Work Phone: [facility] 12-05-2024 12:46-0400 Diastolic blood pressure 62 mm[Hg] Latricia Lindquist MD Work Phone: [facility] 12-05-2024 12:46-0400 Heart rate 73 /min Latricia Lindquist MD Work Phone: [facility] 12-05-2024 12:46-0400 Systolic blood pressure 95 mm[Hg] Latricia Lindquist MD Work Phone: [facility] 12-02-2024 23:35-0400 Body height 180.34 cm Amanda Ford APRN Work Phone: [facility] 12-02-2024 23:35-0400 Body temperature 97.2 [degF] Amanda Ford APRN Work Phone: [facility] 12-02-2024 23:35-0400 Body weight 115.66 kg Amanda Ford APRN Work Phone: [facility] 12-02-2024 23:35-0400 Diastolic blood pressure 56 mm[Hg] Amanda Ford APRN Work Phone: [facility] 12-02-2024 23:35-0400 Heart rate 75 /min Amanda Ford APRN Work Phone: [facility] 12-02-2024 23:35-0400 Respiratory rate 16 /min Amanda Ford APRN Work Phone: [facility] 12-02-2024 23:35-0400 SaO2% (BldA) [Mass fraction] 97 % Amanda Ford APRN Work Phone: [facility] 12-02-2024 23:35-0400 Systolic blood pressure 119 mm[Hg] Amanda Ford [employer] Work Phone: [facility] 11-20-2024 10:37-0400 Body weight 116.1216 kg Amanda Logan [employer]AT[employer] V[employer]INARIAN Work Phone: [facility] 11-20-2024 09:10-0400 Body mass index (BMI) [Ratio] 35.7 kg/m2 Les Juan DO Work Phone: [facility] 11-20-2024 09:10-0400 Body weight 116.12 kg Les Juan DO Work Phone: [facility] 11-20-2024 09:10-0400 Diastolic blood pressure 64 mm[Hg] Les Jaun DO Work Phone: [facility] 11-20-2024 09:10-0400 Systolic blood pressure 114 mm[Hg] Les Juan DO Work Phone: [facility] 10-22-2024 11:28-0400 Body mass index (BMI) [Ratio] 31.24 kg/m2 Les Juan DO Work Phone: [facility] 10-22-2024 11:28-0400 Body weight 101.61 kg Les Juan DO Work Phone: [facility] 10-22-2024 11:28-0400 Diastolic blood pressure 62 mm[Hg] Les Juan DO Work Phone: [facility] 10-22-2024 11:28-0400 Systolic blood pressure 110 mm[Hg] Les Juan DO Work Phone: [facility] 10-18-2024 13:34-0400 Diastolic blood pressure 71 mm[Hg] Amanda Ford [employer]AT[employer] V[employer]ARIAN Work Phone: [facility] 10-18-2024 13:34-0400 Heart rate 60 /min Amanda Ford [employer]AT[employer] V[employer]ARIAN Work Phone: [facility] 10-18-2024 13:34-0400 Respiratory rate 18 /min Amanda Ford [employer]ARIAN Work Phone: [facility] 10-18-2024 13:34-0400 SaO2% (BldA) [Mass fraction] 99 % Amanda Ford [employer]AT[employer] V[employer]ARIAN Work Phone: [facility] 10-18-2024 13:34-0400 Systolic blood pressure 112 mm[Hg] Amanda Ford [employer] V[employer]ARIAN Work Phone: [facility] 10-18-2024 10:38-0400 Body height 180.34 cm Amanda Ford [employer]AT[employer] V[employer]ARIAN Work Phone: [facility] 10-18-2024 10:38-0400 Body temperature 98.1 [degF] Amanda Ford [employer]AT[employer] V[employer]ARIAN Work Phone: [facility] 10-18-2024 10:38-0400 Body weight 106.85 kg Amanda Ford APRN Work Phone: [facility] 09-20-2024 15:06-0400 Body mass index (BMI) [Ratio] 31.24 kg/m2 [facility] Nurse [facility] 09-20-2024 15:06-0400 Body weight 101.61 kg [facility] 09-20-2024 15:06-0400 Diastolic blood pressure 74 mm[Hg] [facility] Nurse [facility] 09-20-2024 15:06-0400 Systolic blood pressure 122 mm[Hg] [facility] 08-22-2024 10:04-0400 Body height 180.3 cm Darleen Sinclair MD Work Phone: [facility] 08-22-2024 10:04-0400 Body mass index (BMI) [Ratio] 29.99 kg/m2 Darleen Sinclair MD Work Phone: [facility] 08-22-2024 10:04-0400 Body weight 97.52 kg Darleen Sinclair MD Work Phone: [facility] 08-22-2024 10:04-0400 Diastolic blood pressure 56 mm[Hg] Darleen Sinclair MD Work Phone: [facility] 08-22-2024 10:04-0400 Heart rate 67 /min Darleen Sinclair MD Work Phone: [facility] 08-22-2024 10:04-0400 Respiratory rate 16 /min Darleen Sinclair MD Work Phone: [facility] 08-22-2024 10:04-0400 SaO2% (BldA) [Mass fraction] 99 % Darleen Sinclair MD Work Phone: [facility] 08-22-2024 10:04-0400 Systolic blood pressure 124 mm[Hg] Darleen Sinclair MD Work Phone: [facility] 04-26-2024 08:32-0500 Body height 180.34 cm [facility] 04-26-2024 08:32-0500 Body mass index (BMI) [Ratio] 30.4 kg/m2 [facility] 04-26-2024 08:32-0500 Body temperature 97.3 [degF] [facility] 04-26-2024 08:32-0500 Body weight 98.99 kg [facility] 04-26-2024 08:32-0500 Diastolic blood pressure 60 mm[Hg] [facility] 04-26-2024 08:32-0500 Heart rate 73 /min [facility] 04-26-2024 08:32-0500 SaO2% (BldA) [Mass fraction] 98 % [facility] 04-26-2024 08:32-0500 Systolic blood pressure 112 mm[Hg] [facility] 02-28-2024 14:03-0500 Body height 180.3 cm Ignacio Guy MD Work Phone: [facility] 02-28-2024 14:03-0500 Body mass index (BMI) [Ratio] 30.23 kg/m2 Ignacio Guy MD Work Phone: [facility] 02-28-2024 14:03-0500 Body weight 98.3 kg Ignacio Guy MD Work Phone: [facility] 02-20-2024 15:12-0500 Body mass index (BMI) [Ratio] 31.71 kg/m2 Les Juan DO Work Phone: [facility] 02-20-2024 15:12-0500 Body weight 100.25 kg Les Juan DO Work Phone: [facility] 02-20-2024 15:12-0500 Diastolic blood pressure 68 mm[Hg] Les Juan DO Work Phone: [facility] 02-20-2024 15:12-0500 Systolic blood pressure 118 mm[Hg] Les Juan DO Work Phone: [facility] 12-07-2023 11:46-0400 Diastolic blood pressure 67 mm[Hg] MELY Ford Work Phone: [facility] 12-07-2023 11:46-0400 Heart rate 76 /min [employer]AT[employer]IM[employer] C[employer] VETERINARIANTanja Ford Work Phone: [facility] 12-07-2023 11:46-0400 Respiratory rate 16 /min MELY Ford Work Phone: [facility] 12-07-2023 11:46-0400 SaO2% (BldA) [Mass fraction] 99 % [employer] VET[employer]INARIANTanja Ford Work Phone: [facility] 12-07-2023 11:46-0400 Systolic blood pressure 149 mm[Hg] MELY Ford Work Phone: [facility] 12-07-2023 10:20-0400 Body temperature 98 [degF] MELY Ford Work Phone: [facility] 12-07-2023 09:55-0400 Inhaled oxygen flow rate 3 L/min MELY Ford Work Phone: [facility] 12-07-2023 06:29-0400 Body height 180.34 cm MELY Ford Work Phone: [facility] 12-07-2023 06:29-0400 Body weight 95.25 kg MELY Ford Work Phone: [facility] 11-01-2023 11:56-0400 Body height 180.34 cm [employer] VETERINARIANTanja Ford Work Phone: [facility] 11-01-2023 11:56-0400 Body mass index (BMI) [Ratio] 28.8 kg/m2 [employer] VET[employer]INARIANTanja Ford Work Phone: [facility] 11-01-2023 11:56-0400 Body weight 93.89 kg MELY Ford Work Phone: [facility] 06-08-2023 14:56-0500 Body height 180.34 cm [facility] 06-08-2023 14:56-0500 Body mass index (BMI) [Ratio] 29.4 kg/m2 [facility] 06-08-2023 14:56-0500 Body weight 95.7 kg [facility] 06-08-2023 14:56-0500 Diastolic blood pressure 68 mm[Hg] [facility] 06-08-2023 14:56-0500 Heart rate 51 /min [facility] 06-08-2023 14:56-0500 SaO2% (BldA) [Mass fraction] 98 % [facility] 06-08-2023 14:56-0500 Systolic blood pressure 122 mm[Hg] [facility] 05-17-2023 14:30-0500 Body height 180.34 cm Romeo Santana Other [facility] 05-17-2023 14:30-0500 Body mass index (BMI) [Ratio] 27.47 kg/m2 Romeo Santana Other [facility] Other 05-17-2023 14:30-0500 Body weight 89.36 kg Romeo Santana Other [facility] Other 05-17-2023 14:30-0500 Body weight 89.35 kg [facility] 02-07-2023 14:30-0400 Body height 180.34 cm Petr Lay Other [facility] Other 02-07-2023 14:30-0400 Body mass index (BMI) [Ratio] 27.61 kg/m2 Petr Lay Other [facility] Other 02-07-2023 14:30-0400 Body temperature 98.1 [degF] Petr Lay Other [facility] Other 02-07-2023 14:30-0400 Body weight 89.81 kg Petr Lay Other [facility] Other 02-07-2023 14:30-0400 Diastolic blood pressure 76 mm[Hg] Petr Lay Other [facility] Other 02-07-2023 14:30-0400 SaO2% (BldA) [Mass fraction] 99 % Petr Lay Other [facility] Other 02-07-2023 14:30-0400 Systolic blood pressure 128 mm[Hg] Petr Lay Other [facility] Other 12-27-2022 11:30-0400 Body height 180.34 cm Petr Lay Other [facility] Other 12-27-2022 11:30-0400 Body mass index (BMI) [Ratio] 28.03 kg/m2 Petr Patmer Other [facility] Other 12-27-2022 11:30-0400 Body weight 91.17 kg Petr Alireza Other [facility] Other 12-27-2022 11:30-0400 Diastolic blood pressure 64 mm[Hg] Petr Alireza Other [facility] Other 12-27-2022 11:30-0400 Respiratory rate 18 /min Petr Alireza Other [facility] Other 12-27-2022 11:30-0400 SaO2% (BldA) [Mass fraction] 99 % Petr Alireza Other [facility] Other 12-27-2022 11:30-0400 Systolic blood pressure 128 mm[Hg] Petr Alireza Other [facility] Other 10-11-2022 13:30-0400 Body height 180.34 cm Petr Alireza Other [facility] Other 10-11-2022 13:30-0400 Body mass index (BMI) [Ratio] 28.78 kg/m2 Petr Alireza Other [facility] Other 10-11-2022 13:30-0400 Body weight 93.62 kg Petr Lay Other [facility] Other 10-11-2022 13:30-0400 Diastolic blood pressure 78 mm[Hg] Petr Lay Other [facility] Other 10-11-2022 13:30-0400 Respiratory rate 18 /min Petr Lay Other [facility] Other 10-11-2022 13:30-0400 SaO2% (BldA) [Mass fraction] 98 % Petr Lay Other [facility] Other 10-11-2022 13:30-0400 Systolic blood pressure 122 mm[Hg] Petr Lay Other [facility] Other 09-30-2022 08:00-0400 Body height 180.34 cm Amanda Ford Other [facility] Other 09-30-2022 08:00-0400 Body mass index (BMI) [Ratio] 28.03 kg/m2 Amanda Ford Other [facility] Other 09-30-2022 08:00-0400 Body weight 91.17 kg Amanda Ford Other [facility] Other 09-30-2022 08:00-0400 Diastolic blood pressure 84 mm[Hg] Amanda Ford Other [facility] Other 09-30-2022 08:00-0400 SaO2% (BldA) [Mass fraction] 95 % Amanda Ford Other [facility] Other 09-30-2022 08:00-0400 Systolic blood pressure 126 mm[Hg] Amanda Ford Other [facility] Other 08-25-2022 15:30-0400 Body height 180.34 cm Amanda Ford Other [facility] Other 08-25-2022 15:30-0400 Body mass index (BMI) [Ratio] 29.15 kg/m2 Amanda Ponceacher Other [facility] Other 08-25-2022 15:30-0400 Body weight 94.8 kg Amanda Shethsarahangelr Other [facility] Other 08-25-2022 15:30-0400 Diastolic blood pressure 77 mm[Hg] Amanda Hahnr Other [facility] Other 08-25-2022 15:30-0400 Systolic blood pressure 126 mm[Hg] Amanda Shethsarahacher Other [facility] Other 08-20-2022 11:00-0400 Body height 180.34 cm Amanda Hahnr Other [facility] Other 08-20-2022 11:00-0400 Body mass index (BMI) [Ratio] 28.73 kg/m2 Amanda Hahnr Other [facility] Other 08-20-2022 11:00-0400 Body weight 93.44 kg Amanda Shethsarahangelr Other [facility] Other 08-20-2022 11:00-0400 Diastolic blood pressure 72 mm[Hg] Amanda Shethsarahangelr Other [facility] Other 08-20-2022 11:00-0400 SaO2% (BldA) [Mass fraction] 100 % Amanda Logan Other [employer] Other 08-20-2022 11:00-0400 Systolic blood pressure 118 mm[Hg] Amanda Ford Other [facility] [employer] Other 06-11-2022 16:43-0500 Body temperature 98.1 [degF] MD Robin Appiah Work Phone: [facility] 06-11-2022 16:43-0500 Diastolic blood pressure 56 mm[Hg] MD Robin Appiah Work Phone: [facility] 06-11-2022 16:43-0500 Heart rate 60 /min MD Robin Appiah Work Phone: [facility] 06-11-2022 16:43-0500 Respiratory rate 16 /min MD Robin Appiah Work Phone: [facility] 06-11-2022 16:43-0500 SaO2% (BldA) [Mass fraction] 100 % MD Robin Appiah Work Phone: [facility] 06-11-2022 16:43-0500 Systolic blood pressure 102 mm[Hg] MD Robin Appiah Work Phone: [facility] 06-11-2022 09:40-0500 Body height 180.34 cm MD Robin Appiah Work Phone: [facility] 06-11-2022 05:42-0500 Body weight 93 kg MD Robin Appiah Work Phone: [facility] 06-10-2022 17:55-0500 Body temperature 98.1 [degF] MD Robin Appiah Work Phone: [facility] 06-10-2022 17:55-0500 Diastolic blood pressure 56 mm[Hg] MD Robin Appiah Work Phone: [facility] 06-10-2022 17:55-0500 Heart rate 62 /min MD Robin Appiah Work Phone: [facility] 06-10-2022 17:55-0500 Respiratory rate 18 /min MD Robin Appiah Work Phone: [facility] 06-10-2022 17:55-0500 SaO2% (BldA) [Mass fraction] 100 % MD Robin Appiah Work Phone: [facility] 06-10-2022 17:55-0500 Systolic blood pressure 122 mm[Hg] MD Robin Appiah Work Phone: [facility] 06-10-2022 14:22-0500 Body height 180.34 cm MD Robin Appiah Work Phone: [facility] 06-10-2022 14:22-0500 Body weight 92.7 kg MD Robin Appiah Work Phone: [facility] 04-21-2022 15:00-0500 Body height 180.34 cm Amanda Ford Other [facility] Other 04-21-2022 15:00-0500 Body mass index (BMI) [Ratio] 27.81 kg/m2 Amanda Ford Other [facility] Other 04-21-2022 15:00-0500 Body temperature 98.2 [degF] Amanda Ford Other [facility] Other 04-21-2022 15:00-0500 Body weight 90.45 kg Amanda Ford Other [facility] Other 04-21-2022 15:00-0500 Diastolic blood pressure 68 mm[Hg] Amanda Ford Other [facility] Other 04-21-2022 15:00-0500 Respiratory rate 18 /min Amanda Shethbilly Other [facility] [employer] Other 04-21-2022 15:00-0500 SaO2% (BldA) [Mass fraction] 99 % Amanda Hahnnikkie Other [facility] [employer] Other 04-21-2022 15:00-0500 Systolic blood pressure 111 mm[Hg] Amanda Poncesudhakar Other [facility] [employer] Other 04-10-2022 21:41-0500 Diastolic blood pressure 56 mm[Hg] MD Robin Appiah Work Phone: [facility] 04-10-2022 21:41-0500 Systolic blood pressure 112 mm[Hg] MD Robin Appiah Work Phone: [facility] 04-10-2022 18:14-0500 Body height 180.34 cm MD Robin Appiah Work Phone: [facility] 04-10-2022 18:14-0500 Body temperature 98.1 [degF] MD Robin Appiah Work Phone: [facility] 04-10-2022 18:14-0500 Body weight 88 kg MD Robin Appiah Work Phone: [facility] 04-10-2022 18:14-0500 Heart rate 119 /min MD Robin Appiah Work Phone: [facility] 04-10-2022 18:14-0500 Respiratory rate 18 /min MD Robin Appiah Work Phone: [facility] 04-10-2022 18:14-0500 SaO2% (BldA) [Mass fraction] 100 % MD Robin Appiah Work Phone: [facility] 04-08-2022 17:15-0500 Body temperature 97.5 [degF] MD Robin Appiah Work Phone: [facility] 04-08-2022 17:15-0500 Diastolic blood pressure 59 mm[Hg] MD Robin Appiah Work Phone: [facility] 04-08-2022 17:15-0500 Heart rate 59 /min MD Robin Appiah Work Phone: [facility] 04-08-2022 17:15-0500 Respiratory rate 18 /min MD Robin Appiah Work Phone: [facility] 04-08-2022 17:15-0500 SaO2% (BldA) [Mass fraction] 100 % MD Robin Appiah Work Phone: [facility] 04-08-2022 17:15-0500 Systolic blood pressure 128 mm[Hg] MD Robin Appiah Work Phone: [facility] 04-08-2022 14:33-0500 Body height 180.34 cm MD Robin Appiah Work Phone: [facility] 04-08-2022 14:33-0500 Body weight 88.1 kg MD Robin Appiah Work Phone: [facility] 03-23-2022 15:30-0500 Body height 180.34 cm Amanda Ford Other [facility] Other 03-23-2022 15:30-0500 Body mass index (BMI) [Ratio] 27.05 kg/m2 Amanda Ford Other [facility] Other 03-23-2022 15:30-0500 Body weight 88 kg Amanda Ford Other [facility] Other 03-23-2022 15:30-0500 Diastolic blood pressure 82 mm[Hg] Amanda Ford Other [facility] Other 03-23-2022 15:30-0500 SaO2% (BldA) [Mass fraction] 98 % Amanda Logan Other [facility] Other 03-23-2022 15:30-0500 Systolic blood pressure 137 mm[Hg] Amanda Logan Other [facility] Other 02-08-2022 10:00-0400 Body height 180.34 cm Amanda Logan Other [facility] Other 02-08-2022 10:00-0400 Body mass index (BMI) [Ratio] 27.47 kg/m2 Amanda Logan Other [facility] Other 02-08-2022 10:00-0400 Body weight 89.36 kg Amanda Logan Other [facility] Other 02-08-2022 10:00-0400 Diastolic blood pressure 62 mm[Hg] Amanda Ford Other [facility] Other 02-08-2022 10:00-0400 Systolic blood pressure 110 mm[Hg] Amanda Ford Other [facility] Other 09-01-2021 14:38-0400 Blood Pressure Location [facility] 09-01-2021 14:38-0400 Diastolic blood pressure 61 mm[Hg] [facility] 09-01-2021 14:38-0400 Heart rate 61 /min [facility] 09-01-2021 14:38-0400 Respiratory rate 18 /min [facility] 09-01-2021 14:38-0400 SaO2% (BldA) [Mass fraction] 100 % [facility] 09-01-2021 14:38-0400 Systolic blood pressure 103 mm[Hg] [facility] 07-24-2021 14:39-0400 Blood Pressure Location [facility] 07-24-2021 14:39-0400 Diastolic blood pressure 77 mm[Hg] [facility] 07-24-2021 14:39-0400 Heart rate 65 /min [facility] 07-24-2021 14:39-0400 Respiratory rate 18 /min [facility] 07-24-2021 14:39-0400 SaO2% (BldA) [Mass fraction] 100 % [facility] 07-24-2021 14:39-0400 Systolic blood pressure 115 mm[Hg] [facility] 07-16-2021 11:00-0400 Body height 180.34 cm Amanda Ford Other [facility] Other 07-16-2021 11:00-0400 Body mass index (BMI) [Ratio] 29.15 kg/m2 Amanda Ford Other [facility] Other 07-16-2021 11:00-0400 Body weight 94.8 kg Amanda Shethbilly Other [facility] Other 07-16-2021 11:00-0400 Diastolic blood pressure 64 mm[Hg] Amanda Shethbilly Other [facility] Other 07-16-2021 11:00-0400 SaO2% (BldA) [Mass fraction] 98 % Amanda Logan Other [facility] Other 07-16-2021 11:00-0400 Systolic blood pressure 102 mm[Hg] Amanda Logan Other [facility] Other 05-08-2020 08:20-0500 Body Temperature 97.7 [degF] [facility] [place] 05-08-2020 08:20-0500 BP Diastolic 89 mm[Hg] [facility] [place] 05-08-2020 08:20-0500 BP Systolic 156 mm[Hg] [facility] [place] 05-08-2020 08:20-0500 Pulse (Heart Rate) 101 /min Rashard Olivera [email or web address] [place] 05-08-2020 08:20-0500 Pulse Oximetry 96 % [facility] [place] 05-08-2020 08:20-0500 Respiratory Rate 19 /min Rashard [employer] [facility], [place] 05-06-2020 08:51-0500 BMI (Body Mass Index) 58.86 kg/m2 Rashard Olivera [email or web address] [facility] 05-06-2020 08:51-0500 Body weight 191.42 kg [facility] [place] 05-06-2020 08:51-0500 Height [facility].3 cm [facility] [place] 04-22-2020 13:30-0500 BMI (Body Mass Index) 61.79 kg/m2 [facility], [place] 04-22-2020 13:30-0500 Body Temperature 97.11 [degF] [facility], [place] 04-22-2020 13:30-0500 Body weight 200.94 kg [facility] , [place] 04-22-2020 13:30-0500 BP Diastolic 90 mm[Hg] [facility] [place] 04-22-2020 13:30-0500 BP Systolic 148 mm[Hg] v 2 [facility] , [place] 04-22-2020 13:30-0500 Height 180.3 cm [facility] [place] 04-22-2020 13:30-0500 Pulse (Heart Rate) 104 /min [facility] [place] 04-22-2020 13:30-0500 Pulse Oximetry 97 % [address] , [place] 04-22-2020 13:30-0500 Respiratory Rate 18 /min [address] Encounters Encounter Date Encounter Type Care Provider Facility Start: 01-04-2025 End: 01-04-2025 Orders Only Krystyna Dick RN [facility] Comment on above: Previous gastric byp ass affecting , antepartum (Primary Dx); Hypothyroidism affecting in second trimester; 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 ([facility]); Obesity affecting in second trimester, unspecified obesity type Start: 01-03-2025 End: 01-03-2025 ambulatory NO PCP NO PCP [facility] Start: 01-03-2025 End: 01-03-2025 Telephone encounter Roslyn Griffin RN [facility] [place] Start: 12-19-2024 End: 12-19-2024 Juan Fo flowsandrew OGDEN Work Phone: GUDELIA HERNANDEZ Start: 12-19-2024 End: 12-19-2024 Juan Fo flowsandrew OGDEN Work Phone: GUDELIA HERNANDEZ Start: 12-19-2024 End: 12-19-2024 Office outpatient visit 15 minutes Jojo OGDEN Work Phone: [facility] Zainab HERNANDEZ Comment on above: 22 weeks gestation o f ([facility]); Second trimester ([facility]); Thyroid disease ; H/O gastric sleeve; H/O iron deficiency anemia; Diabetes mellitus screening Start: 12-19-2024 End: 12-19-2024 ambulatory JOJO AMES Not Available Start: 12-15-2024 End: 12-18-2024 Clinisync Result Encounter Les Mosquedazio DO Work Phone: [facility] External Department Unsolicited Start: 12-15-2024 End: 12-18-2024 Clinisync Result Encounter Les Juan DO Work Phone: [facility] External Department Unsolicited Start: 12-05-2024 End: 12-05-2024 Office consultation new/estab patient 80 min Latricia Lindquist MD Work Phone: [facility] Comment on above: 20 weeks gestation o f (Primary Dx); Previous gastric bypass affecting , antepartum; Obesity affecting in second trimester, unspecified obesity type; Hypothyroidism affecting in second trimester; 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 ([facility]); headache in second trimester Start: 12-05-2024 End: 12-05-2024 Orders Only Chiquita Shen RN [facility] Comment on above: Previous gastric byp ass affecting , antepartum (Primary Dx); Hypothyroidism affecting in second trimester; 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 ([facility]); Obesity affecting in second trimester, unspecified obesity type; Encounter for supervision of resulting from assisted reproductive technology, antepartum Start: 12-04-2024 End: 12-04-2024 ambulatory LES MARTINEZ Not Available Start: 12-02-2024 End: 12-03-2024 Patient encounter procedure Eduardo Cruz DO -[facility] [address] [facility] - O/P Start: 12-02-2024 End: 12-03-2024 ambulatory Amanda Ford APRN Work Phone: [facility] Work Phone: Start: 12-02-2024 End: 12-03-2024 External Result Encounter Eduardo Agustin Visci DO Work Phone: [facility] External Department Unsolicited Start: 12-02-2024 End: 12-03-2024 External Result Encounter Eduardo Agustin Visci DO Work Phone: [facility] External Department Unsolicited Start: 12-01-2024 Non-patient / Non-visit ([place]) Elizabeth MCDERMOTT -[facility] Work Phone: Start: 11-30-2024 End: 11-30-2024 ambulatory Amanda Ford LABORATORY ANIMAL CARE VETERINARIAN Work Phone: [facility] Work Phone: Start: 11-30-2024 End: 11-30-2024 Departed Referred Chris Chapman DO -[facility] Start: 11-30-2024 Non-patient / Non-visit Chris Chapman DO -[place] [employer] Work Phone: Start: 11-20-2024 End: [...] Start: 11-20-2024 Non-patient / Non-visit Les Juan -[place] [employer] Work Phone: Start: 11-20-2024 End: 11-20-2024 Patient encounter procedure Les Juan DO Work Phone: [facility] Start: 11-20-2024 End: 11-20-2024 Periodic preventive med est patient 18-39 yrs Les Juan DO Work Phone: [facility] Zainab HERNANDEZ Comment on above: Well woman exam with routine gynecological exam; Exposure to STD; Second trimester ([facility]); 18 weeks gestation of ([facility]); Need for maternal serum alpha-protein (MSAFP) screening ([facility]); Screening, , for anatomic survey ([facility]); Thyroid disease Start: 11-20-2024 End: 11-20-2024 ambulatory LES JUAN Not Available Start: 11-17-2024 Non-patient / Non-visit Chris Chapman [facility] Work Phone: Start: 10-26-2024 End: 10-26-2024 Orders Only Not In System Ref Prov [facility] Start: 10-22-2024 End: 10-22-2024 Office outpatient visit 15 minutes Les Juan DO Work Phone: [facility] Comment on above: 13 weeks gestation o f ([facility]); Second trimester ([facility]); Thyroid disease ; H/O gastric sleeve; H/O iron deficiency anemia; resulting from in vitro fertilization in first trimester ([facility]) Start: 10-22-2024 End: 10-22-2024 ambulatory LES JUAN Not Available Start: 10-18-2024 End: 10-18-2024 Emergency department patient visit Amanda Logan H[facility]IL[facility]N Work Phone: -Emergency Room Work Phone: Start: 10-10-2024 End: 10-10-2024 Clinisync Result Encounter Les Juan DO Work Phone: [facility] External Department Unsolicited Start: 10-10-2024 End: 10-10-2024 Clinisync Result Encounter Les Juan DO Work Phone: [facility] External Department Unsolicited Start: 09-26-2024 End: 09-26-2024 ambulatory Amanda Merylbilly Facility:[facility] Start: 09-20-2024 End: 09-20-2024 Office outpatient visit 5 minutes [facility] Juan Nurse [facility] Comment on above: GA: 9w2d Start: 09-20-2024 End: 09-20-2024 ambulatory DARLEEN SINCLAIR Not Available Start: 09-03-2024 End: 09-03-2024 Nursing evaluation of patient and report [facility] Work Phone: Reproductive Endocrinology Infertility Comment on above: Early stage of pregn paulo ([facility]) Start: 09-03-2024 End: 09-03-2024 ambulatory SHELLY HERNANDEZ Facility:[facility] Start: 08-28-2024 End: 08-28-2024 Nursing evaluation of patient and report [facility] Work Phone: Reproductive Endocrinology Infertility Comment on above: resulting from assisted reproductive technology in first trimester ([facility]) Start: 08-28-2024 End: 08-28-2024 ambulatory SHELLY HERNANDEZ Facility:[facility] Start: 08-24-2024 End: 08-24-2024 Telephone encounter Shelly Yecenia David LABORATORY ANIMAL CARE VETERINARIAN.POLICE BOOKING OFFICER Work Phone: Reproductive Endocrinology Infertility Comment on above: Patient Question Start: 08-23-2024 End: 08-24-2024 Telephone encounter Shelly Hernandez LABORATORY ANIMAL CARE VETERINARIAN.POLICE BOOKING OFFICER Work Phone: Reproductive Endocrinology Infertility Comment on above: Pain Start: 08-22-2024 End: 08-22-2024 Bamboo flowsheet Darleen Sinclair MD Work Phone: [facility] Start: 08-22-2024 End: 08-22-2024 Bamboo flowsheet Darleen Sinclair MD Work Phone: [facility] Start: 08-22-2024 End: 08-22-2024 Office outpatient visit 25 minutes Darleen Sinclair MD Work Phone: [facility] Comment on above: Abnormal thyroid fun ction test (Primary Dx); H/O gastric bypass; 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CMS/HCC); Vitamin D deficiency Start: 08-22-2024 End: 08-22-2024 ambulatory DARLEEN SINCLAIR Not Available Start: 08-20-2024 End: 08-20-2024 Telemedicine consultation with patient Shelly Mcraealton BOONE.POLICE BOOKING OFFICER Work Phone: Reproductive Endocrinology Infertility Start: 08-20-2024 End: 08-20-2024 ambulatory Shelly Hernandez LABORATORY ANIMAL CARE VETERINARIAN.POLICE BOOKING OFFICER Work Phone: Reproductive Endocrinology Infertility Comment on above: 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) (Primary Dx) Start: 08-18-2024 End: 08-23-2024 ambulatory Shelly Hernandez APRN.POLICE BOOKING OFFICER Work Phone: Reproductive Endocrinology Infertility Comment on above: Ultrasound Start: 08-17-2024 End: 08-17-2024 ambulatory Amanda Ford Facility:[facility] Start: 08-16-2024 End: 08-16-2024 Telephone encounter Shelly Hernandez APRN.POLICE BOOKING OFFICER Work Phone: Reproductive Endocrinology Infertility Comment on above: positive for pregnan cy Start: 08-15-2024 End: 08-15-2024 Telephone encounter Shelly Hernandez APRN.POLICE BOOKING OFFICER Work Phone: Reproductive Endocrinology Infertility Comment on above: Patient Question Start: 08-15-2024 End: 08-15-2024 ambulatory Shelly Hernandez Facility:[facility] Start: 08-13-2024 End: 08-13-2024 ambulatory Shelly Hernandez Facility:[facility] Start: 07-31-2024 End: 07-31-2024 ambulatory SELF Facility:[facility] Start: 07-31-2024 End: 07-31-2024 Patient encounter procedure Andrology Seo Manager Work Phone: [facility] Comment on above: Procreative manageme nt (Primary Dx) Start: 07-30-2024 End: 07-30-2024 Telephone encounter Shelly Hernandez APRN.POLICE BOOKING OFFICER Work Phone: Reproductive Endocrinology Infertility Comment on above: Patient Question Start: 07-25-2024 End: 07-25-2024 ambulatory SELF Facility:[facility] Start: 07-07-2024 End: 07-07-2024 ambulatory MIKEY TORRES Facility:[facility] Start: 07-07-2024 End: 07-07-2024 Patient encounter procedure Andrology Seo Manager Work Phone: [facility] Comment on above: Procreative manageme nt (Primary Dx) Encounter for artifi cial insemination (Primary Dx) Start: 07-06-2024 End: 07-06-2024 Telephone encounter Shelly Hernandez APRN.POLICE BOOKING OFFICER Work Phone: Reproductive Endocrinology Infertility Comment on above: Patient calling back /re iui 07/07 unsure Start: 07-05-2024 End: 07-06-2024 Telephone encounter Ignacio Guy MD Work Phone: Reproductive Endocrinology Infertility Comment on above: re iui this wknd/has cervical polyp question Start: 07-04-2024 End: 07-04-2024 Telephone encounter Shelly Hernandez APRN.POLICE BOOKING OFFICER Work Phone: Reproductive Endocrinology Infertility Comment on above: Treatment Planning Start: 07-04-2024 End: 07-11-2024 ambulatory Shelly Hernandez APRN.POLICE BOOKING OFFICER Work Phone: Rep[facility]ductive Endocrinology Infertility Comment on above: Ovulating Start: 07-04-2024 End: 07-04-2024 Patient encounter procedure Us Tech 3 [facility] Work Phone: Reproductive Endocrinology Infertility Start: 07-02-2024 End: 07-02-2024 ambulatory SHELLY HERNANDEZ Facility:[facility] Start: 06-29-2024 End: 06-29-2024 ambulatory SHELLY HERNANDEZ Facility:[facility] Start: 06-23-2024 End: 06-29-2024 ambulatory Shelly Hernandez LABORATORY ANIMAL CARE VETERINARIAN.POLICE BOOKING OFFICER Work Phone: Reproductive Endocrinology Infertility Comment on above: Negative t est and possible hematoma Start: 06-09-2024 End: 06-09-2024 ambulatory IGNACIO GUY Facility:[facility] Start: 06-09-2024 End: 06-09-2024 Patient encounter procedure Andrology Seo Manager Work Phone: [facility] Comment on above: Procreative manageme nt (Primary Dx) Female infertility ( Primary Dx) Start: 06-05-2024 End: 06-07-2024 ambulatory Shelly Yecenia David LABORATORY ANIMAL CARE VETERINARIAN.POLICE BOOKING OFFICER Work Phone: Rep[facility]ductive Endocrinology Infertility Start: 06-05-2024 End: 06-07-2024 Patient encounter procedure Shelly Hernandez LABORATORY ANIMAL CARE VETERINARIAN.POLICE BOOKING OFFICER Work Phone: Reproductive Endocrinology Infertility Comment on above: IUI appointment Start: 05-22-2024 End: 05-23-2024 ambulatory Shelly Hernandez LABORATORY ANIMAL CARE VETERINARIAN.POLICE BOOKING OFFICER Work Phone: Reproductive Endocrinology Infertility Comment on above: Progesterone results Start: 05-21-2024 End: 05-21-2024 ambulatory Shellymiriam Mcraekey Facility:[facility] Start: 05-18-2024 End: 05-18-2024 ambulatory SHELLY HERNANDEZ Facility:[facility] Start: 05-09-2024 End: 05-09-2024 ambulatory Shelly Mcraekey LABORATORY ANIMAL CARE VETERINARIAN.POLICE BOOKING OFFICER Work Phone: Reproductive Endocrinology Infertility Comment on above: Reproductive mgmt, 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) Start: 05-09-2024 End: 05-09-2024 Telemedicine consultation with patient Shelly Hernandez LABORATORY ANIMAL CARE VETERINARIAN.POLICE BOOKING OFFICER Work Phone: [facility] Endocrinology Infertility Start: 05-06-2024 End: 05-07-2024 ambulatory Shelly Yecenia David LABORATORY ANIMAL CARE VETERINARIAN.POLICE BOOKING OFFICER Work Phone: Reproductive Endocrinology Infertility Comment on above: Consent form Start: 05-02-2024 End: 05-02-2024 Telemedicine consultation with patient Saúl Enriquez PhD Work Phone: [facility] Comment on above: Bipolar 1 disorder ( Multi) (Primary Dx); Infertility counseling Start: 05-02-2024 End: 05-02-2024 ambulatory [facility] Ambulatory Start: 04-26-2024 End: 04-26-[address] [facility] Work Phone: Start: 04-26-2024 End: 04-26-2024 Patient encounter procedure [facility] Work Phone: Start: 04-24-2024 End: 04-24-2024 ambulatory SHELLY DAVID Facility:[facility] Start: 04-23-2024 End: 04-23-[address] 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); Special screening examination for infectious diseases; Encounter for other genetic testing of female for procreative management Start: 03-09-2024 End: 03-09-2024 Telemedicine consultation with patient Shelly Hernandez LABORATORY ANIMAL CARE VETERINARIAN.POLICE BOOKING OFFICER Work Phone: Reproductive Endocrinology Infertility Start: 02-29-2024 End: 02-29-2024 ambulatory SHELLY DAVID Facility:[facility] Start: 02-28-2024 End: 02-28-2024 ambulatory IGNACIO GUY Facility:[facility] Start: 02-28-2024 End: 02-28-2024 Patient encounter procedure Ignacio Guy MD Work Phone: Reproductive Endocrinology Infertility Comment on above: Encounter for male f actor 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 (Primary Dx) Start: 02-27-2024 End: 02-27-2024 ambulatory Amanda Logan LABORATORY ANIMAL CARE VETERINARIAN Work Phone: [facility] Work Phone: Start: 02-27-2024 End: 02-27-2024 Patient encounter procedure Amanda Logan LABORATORY ANIMAL CARE VETERINARIAN Work Phone: [facility] [place] [facility] Work Phone: Start: 02-20-2024 Non-patient / Non-visit [facility] [place] Work Phone: Start: 02-20-2024 End: 02-20-2024 Patient encounter procedure Els Juan DO Work Phone: [facility] Start: [...] Department Unsolicited Start: 01-17-2024 End: 01-17-2024 ambulatory LABORATORY ANIMAL CARE VETERINARIAN Amandahina Ford Work Phone: [facility] Work Phone: Start: 01-17-2024 End: 01-17-2024 Patient encounter procedure LABORATORY ANIMAL CARE VETERINARIAN Amanda Ford Work Phone: [facility] Work Phone: Start: 01-10-2024 Non-patient / Non-visit LABORATORY ANIMAL CARE VETERINARIAN Amanda Rosarioacher Work Phone: [facility] Work Phone: Start: 12-20-2023 End: 12-20-2023 ambulatory LABORATORY ANIMAL CARE VETERINARIAN Amanda Merylrbacher Work Phone: [facility] Work Phone: Start: 12-20-2023 End: 12-20-2023 Patient encounter procedure LABORATORY ANIMAL CARE VETERINARIAN Amanda Merylrbacher Work Phone: [facility] Work Phone: Start: 12-09-2023 ambulatory Romeo Santana DO [facility] Start: 12-07-2023 Non-patient / Non-visit LABORATORY ANIMAL CARE VETERINARIAN Amanda Jovanir Work Phone: [facility] Work Phone: Start: 12-07-2023 End: 12-07-2023 Admission to same day surgery center LABORATORY ANIMAL CARE VETERINARIAN Amanda Jovanir Work Phone: [facility] [place] Start: 12-07-2023 End: 12-07-2023 ambulatory LABORATORY ANIMAL CARE VETERINARIAN Amanda Merylrbacher Work Phone: [facility] Work Phone: Start: 12-01-2023 End: 12-01-2023 ambulatory LABORATORY ANIMAL CARE VETERINARIAN Amanda Merylrbacher Work Phone: [facility] Work Phone: Start: 12-01-2023 End: 12-01-2023 Patient encounter procedure LABORATORY ANIMAL CARE VETERINARIAN Amanda Merylrbacher Work Phone: [facility] [place] [facility] Work Phone: Start: 11-28-2023 End: 11-28-2023 ambulatory LABORATORY ANIMAL CARE VETERINARIAN Amanda Rohrbacher Work Phone: [facility] Work Phone: Start: 11-28-2023 End: 11-28-2023 Patient encounter procedure LABORATORY ANIMAL CARE VETERINARIANTanja Ford Work Phone: [facility] Work Phone: Start: 11-02-2023 End: 11-02-2023 Emergency department patient visit Amanda Ford Facility:[facility] Start: 11-01-2023 End: 11-01-2023 ambulatory LABORATORY ANIMAL CARE VETERINARIAN Amanda Ford Work Phone: [facility] Work Phone: Start: 11-01-2023 End: 11-01-2023 Patient encounter procedure LABORATORY ANIMAL CARE VETERINARIANTanja Ford Work Phone: [facility] Work Phone: Start: 10-26-2023 End: 10-26-2023 ambulatory LABORATORY ANIMAL CARE VETERINARIANTanja Ford Work Phone: [facility] Work Phone: Start: 10-26-2023 End: 10-26-2023 Patient encounter procedure LABORATORY ANIMAL CARE VETERINARIANTanja Ford Work Phone: [facility] Work Phone: Start: 10-13-2023 End: 10-13-2023 ambulatory [facility] Work Phone: Start: 10-13-2023 End: 10-13-2023 Patient encounter procedure [facility] Work Phone: Start: 09-15-2023 Non-patient / Non-visit [facility] Work Phone: Start: 06-08-2023 End: 06-08-2023 ambulatory [facility] Work Phone: Start: 06-08-2023 End: 06-08-2023 Patient encounter procedure [facility] Work Phone: Start: 05-17-2023 End: 05-17-2023 ambulatory Amanda Ford Other [facility] Other Start: 05-17-2023 Office outpatient visit 15 minutes Romeo Santana [facility] Start: 05-17-2023 Telephone encounter Amanda Gonzales her [facility] Start: 05-17-2023 End: 05-17-2023 Patient encounter procedure [facility]- Start: 04-28-2023 End: 04-28-2023 ambulatory Amanda Shethstefanynikkie Other [facility] Other Start: 04-28-2023 Telephone encounter Amanda Gonzales her [facility] Start: 04-22-2023 End: 04-22-2023 ambulatory Amanda Jovanir Other [facility] Other Start: 04-22-2023 Telephone encounter Amanda Gonzales her [facility] Start: 04-19-2023 End: 04-19-2023 ambulatory Amanda Ponceacher Other [facility] Other Start: 04-19-2023 Telephone encounter Amanda Gonzales her [facility] Start: 04-14-2023 End: 04-14-2023 ambulatory Amanda Rosarioacher Other [facility] Other Start: 04-14-2023 Telephone encounter Amanda Gonzales her [facility] Start: 03-17-2023 End: 03-17-2023 ambulatory Romeo Santana Other [facility] Other Start: 03-17-2023 Telephone encounter Romeo Santana [facility] Start: 02-07-2023 End: 02-07-2023 ambulatory Amanda Ponceacher Other [facility] Other Start: 02-07-2023 Office outpatient visit 15 minutes Petr Lay [facility] Start: 02-07-2023 Telephone encounter Amanda Gonzales her [facility] Start: 01-27-2023 End: 01-27-2023 ambulatory Amanda Shethrbacher Other [facility] Other Start: 01-27-2023 Telephone encounter Amanda Gonzales her [facility] [place] Start: 01-19-2023 End: 01-19-2023 ambulatory Amanda Shethrbacher Other [facility] Other Start: 01-19-2023 Telephone encounter Amanda Gonzales her [facility] Start: 01-13-2023 End: 01-13-2023 ambulatory Amanda Shethrbacher Other [facility] Other Start: 01-13-2023 Telephone encounter Amanda Gonzales her [facility] Start: 01-10-2023 End: 01-10-2023 ambulatory Amanda Shethrbacher Other [facility] Other Start: 01-10-2023 Telephone encounter Amanda Gonzales her [facility] Start: 01-06-2023 End: 01-06-2023 ambulatory Amanda Shethrbacher Other [facility] Other Start: 01-06-2023 Telephone encounter Amanda Gonzales her [facility] Start: 12-27-2022 End: 12-27-2022 ambulatory Petr Patmer Other [facility] Other Start: 12-27-2022 Office outpatient visit 15 minutes Petr Lay [facility] [place] Start: 11-10-2022 End: 11-10-2022 ambulatory Amanda Ponceacher Other [facility] Other Start: 11-10-2022 Telephone encounter Amanda Shethsarahsari her [facility] [place] Start: 10-21-2022 End: 10-21-2022 ambulatory Amanda Merylrbacher Other [facility] Other Start: 10-21-2022 Telephone encounter Amanda Shethfelecia her [facility] [place] Start: 10-11-2022 End: 10-11-2022 ambulatory Petr Lay Other [facility] Other Start: 10-11-2022 Office consultation new/estab patient 40 min Petr Lay [facility] [place] Start: 09-30-2022 End: 09-30-2022 ambulatory Amandarufino Ponceacher Other [facility] Other Start: 09-30-2022 Office outpatient visit 15 minutes Amanda Ponceacher [facility] [place] Start: 08-25-2022 End: 08-25-2022 ambulatory Amanda Merylrbacher Other [facility] Other Start: 08-25-2022 Office outpatient visit 15 minutes Amandarufino Ponceacher [facility] [place] Start: 08-20-2022 End: 08-20-2022 ambulatory Amanda Merylrbacher Other [facility] Other Start: 08-20-2022 Office outpatient visit 15 minutes Amanda Merylrbacher [facility] [place] Start: 07-19-2022 End: 07-19-2022 ambulatory Amanda Merylrbacher Other [facility] Other Start: 07-19-2022 Telephone encounter Amanda Gonzales her [facility] Start: 07-08-2022 End: 07-08-2022 ambulatory Amanda Shethstefanyr Other [facility] Other Start: 07-08-2022 Telephone encounter Amanda Gonzales her [facility] Start: 06-23-2022 End: 06-23-2022 ambulatory LABORATORY ANIMAL CARE VETERINARIAN Amanda Logan Work Phone: [facility] Work Phone: Start: 06-23-2022 End: 06-23-2022 Patient encounter procedure LABORATORY ANIMAL CARE VETERINARIAN Amanda Logan Work Phone: [facility] [place] Work Phone: Start: 06-17-2022 End: 06-17-2022 ambulatory Amanda Shethstefanynikkie Other [facility] Other Start: 06-17-2022 Telephone encounter Amanda Gonzales her [employer] [facility] [employer] [facility] [employer] Start: 06-16-2022 End: 06-16-2022 ambulatory LABORATORY ANIMAL CARE VETERINARIANTanja Patel Logan Work Phone: [facility] [facility] Work Phone: Start: 06-16-2022 End: 06-16-2022 Patient encounter procedure LABORATORY ANIMAL CARE VETERINARIAN Amanda Logan Work Phone: [facility] [place] Work Phone: Start: 06-10-2022 End: 06-11-2022 Evaluation and management of inpatient MD Robin Appiah Work Phone: [facility] Work Phone: Start: 06-10-2022 observation encounter MD Estrada Appiah Work Phone: [facility] Work Phone: Start: 06-09-2022 End: 06-09-2022 ambulatory MD Robin Appiah Work Phone: [facility] Work Phone: Start: 06-09-2022 End: 06-09-2022 Patient encounter procedure MD Robin Appiah Work Phone: [facility] [place] Work Phone: Start: 04-26-2022 End: 04-26-2022 ambulatory Amanda Ford Other [facility] Other Start: 04-26-2022 Telephone encounter Amanda Gonzales her [employer] Start: 04-23-2022 End: 04-23-2022 ambulatory Amanda Ford Other [facility] Other Start: 04-23-2022 Telephone encounter Amanda Gonzales her [employer] Start: 04-21-2022 End: 04-21-2022 Departed Referred MD Robin Appiah Work Phone: [facility] [place] Work Phone: Start: 04-21-2022 End: 04-21-2022 ambulatory MD Robin Appiah Work Phone: [facility] Work Phone: Start: 04-21-2022 Office outpatient visit 15 minutes Amanda Ford [facility] Start: 04-20-2022 End: 04-20-2022 ambulatory Amanda Ford Other [facility] Other Start: 04-20-2022 Telephone encounter Amanda Gonzales her [facility] Start: 04-13-2022 End: 04-13-2022 ambulatory Amanda Ford Other [facility] Other Start: 04-13-2022 Telephone encounter Amanda Shethfelecia her [employer] Start: 04-10-2022 End: 04-10-2022 Emergency department patient visit MD Robin Appiah Work Phone: [facility] Work Phone: Start: 04-08-2022 End: 04-08-2022 Emergency department patient visit MD Robin Appiah Work Phone: [facility] Work Phone: Start: 03-30-2022 End: 03-30-2022 ambulatory Amanda Logan Other [facility] Other Start: 03-30-2022 Telephone encounter Amanda Janet her [facility] [place] Start: 03-23-2022 End: 03-23-2022 Patient encounter procedure MD Robin Appiah Work Phone: [facility] [place] Start: 03-23-2022 End: 03-23-2022 ambulatory Amanda Jovanir Other [facility] Other Start: 03-23-2022 Office outpatient visit 15 minutes Amanda Ford [facility] Start: 03-17-2022 End: 03-17-2022 ambulatory Amanda Logan Other [facility] Other Start: 03-17-2022 Telephone encounter Amanda Shethfelecia her [facility] Start: 02-08-2022 End: 02-08-2022 ambulatory Amanda Hahnr Other [facility] Other Start: 02-08-2022 Office outpatient visit 25 minutes Amanda Ford [facility] Start: 09-01-2021 End: 09-01-2021 Patient encounter procedure [facility] Start: 08-25-2021 End: 08-25-2021 Patient encounter procedure [facility] Start: 08-06-2021 End: 08-06-2021 Patient encounter procedure [facility] Start: 07-24-2021 End: 07-24-2021 Patient encounter procedure [facility] Start: 07-23-2021 End: 07-23-2021 ambulatory Amanda Ford Other [facility] Other Start: 07-23-2021 Telephone encounter Amanda Gonzales her [employer] Start: 07-16-2021 End: 07-16-2021 ambulatory Amanda Ford Other [facility] Other Start: 07-16-2021 Office outpatient ne w 30 minutes Amanda Ford [facility] Start: 03-30-2021 End: 03-30-2021 Emergency department patient visit ROBIN APPIAH [facility] Start: 05-06-2020 End: 05-08-2020 ambulatory RASHARD OLIVERA [facility] Start: 05-06-2020 End: 05-08-2020 Subsequent hospital visit by physician Rashard Olivera Work Phone: [facility]/Med Surg Comment on above: Post-op pain (Primar y Dx) Start: 05-02-2020 End: 05-03-2020 Patient encounter procedure MACKENZIE BRITO [facility] Start: 05-02-2020 End: 05-02-2020 Subsequent hospital visit by physician Michael Covid Screening Schedule MICHAEL Covid Screening Comment on above: Pre-op testing (Prim cj Dx) Start: 04-22-2020 End: 04-25-2020 ambulatory RASHARD Gilmore [facility] Start: 04-22-2020 End: 04-27-2020 ambulatory RASHARD Gilmore [facility] Start: 04-22-2020 End: 04-24-2020 Subsequent hospital visit by physician Lam C-Arm 2 [facility] Radiology Comment on above: Arrived Start: 04-22-2020 End: 04-26-2020 Subsequent hospital visit by physician Martita Pat 2 MARTITA Pre-Admit Testing Procedures Date Procedure Procedure Detail Performing Clinician Start: 12-19-2024 Urnls dip stick/tabl et rgnt non-auto w/o micrscp Jojo OGDEN Work Phone: Start: 12-15-2024 [facility] UA (CLEAN/CATCH) PRINT LINE INSPECTOR/MICRO IF IND. Les Juan DO Work Phone: Start: 12-15-2024 [facility] URINE MICROSCOPIC ONLY Les Juan DO Work Phone: Start: 12-02-2024 Urnls dip stick/tabl et rgnt [...] of kendrick wth of fungi Amanda Ford LABORATORY ANIMAL C[employer] VETERINARIAN Work Phone: Start: 10-18-2024 Trichomonas vaginali s detection Amanda Ford LABORATORY ANIMAL CARE VETERINARIAN Work Phone: Start: 10-18-2024 Urine culture Amanda Ford [employer]AT[employer]INARIAN Work Phone: Start: 10-18-2024 Diagnostic ultrasoun d of gravid uterus Amanda Ford LABORATORY ANIMAL CARE VETERINARIAN Work Phone: Start: 10-16-2024 UNLISTED LAB TEST [...] after 1st trimest 04/18 gestation Shelly Hernandez LABORATORY ANIMAL CARE VETERINARIAN.POLICE BOOKING OFFICER Work Phone: Start: 08-28-2024 Us preg uterus after 1st trimest 04/18 gestation Shelly Mcraekey LABORATORY ANIMAL CARE VETERINARIAN.POLICE BOOKING OFFICER Work Phone: Start: 07-04-2024 Us pelvic nonobstetr ic real-time image complete Ignacio Guy MD Work Phone: Start: 04-02-2024 Antibody screen SHELLY HERNANDEZ Comment on above: Order Comment: Speci men Type: BLOOD SPECIMEN Ordering Facility: [facility] Address: [address] [place] [address] Performed By: #### T SPN #### [facility] CLIA [id number] [address] [place] [address] [place] Start: 02-20-2024 IGP,APTIMA HPV,AGE GDLN Les Monsivaiso [...] Phone: Start: 04-22-2020 Assay of nicotine Rashad Gilmroe Olivera Work Phone: Start: 04-22-2020 Basic metabolic pane l calcium total Rashard Olivera Work Phone: Start: 04-22-2020 Blood count complete automated Rashard Olivera Work Phone: Start: 04-22-2020 Prothrombin time Narendrabear Olivera Work Phone: Start: 04-22-2020 Thromboplastin time [...] RSV Vaccine (1 - 1-dose 75+ series) [facility] Start: 2045 Zoster Vaccines (1 of 2) Zoster Vaccines (1 of 2) [facility] Start: 12-25-2032 DTaP,Tdap and Td Vaccines (2 - Td or Tdap) DTaP,Tdap and Td Vaccines (2 - Td or Tdap) [facility] Start: 12-25-2032 DTaP/Tdap/Td Vaccines (2 - Td or Tdap) DTaP/Tdap/Td Vaccines (2 - Td or Tdap) [facility] Start: 12-25-2032 Urine microalbumin profile DTaP,Tdap,Td Vaccine (2 - Td or Tdap) [facility] Start: 02-19-2027 Screening for malignant neoplasm of cervix [facility] Start: 12-05-2025 Adult BMI Screening Adult BMI Screening [facility] Start: 12-05-2025 Tobacco Screening Tobacco Screening [facility] Start: 12-05-2025 End: 12-05-2025 US MFM with or without consult US MFM with or without consult Imaging Routine Previous gastric bypass affecting , antepartum Hypothyroidism affecting in second trimester 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 ([facility]) Obesity affecting in second trimester, unspecified obesity type Encounter for supervision of resulting from assisted reproductive technology, antepartum Expected: 12/05/2025 (Approximate), Expires: 12/05/2025 [facility] Work Phone: Comment on above: Expected: 12/05/2025 (Approximate), Expi res: 12/05/2025 Start: 08-21-2025 End: 08-21-2025 Patient encounter procedure [facility] Start: 02-20-2025 End: 02-20-2025 Patient encounter procedure [facility] Start: 02-07-2025 End: 02-07-2025 Patient encounter procedure 02/07/2025 9:45 AM EDT Appointment [facility] [place] [address] [address] [facility] [place] Start: 02-03-2025 End: 01-04-2026 US MFM with or without consult US MFM with or without consult Imaging Routine Previous gastric bypass affecting , antepartum Hypothyroidism affecting in second trimester 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 ([facility]) Obesity affecting in second trimester, unspecified obesity type Expected: 02/03/2025 (Approximate), Expires: 01/04/2026 [facility] Work Phone: Comment on above: Expected: 02/03/2025 (Approximate), Expi res: 01/04/2026 Start: 01-16-2025 End: 01-16-2025 Patient encounter procedure 01/16/2025 11:20 AM EDT Routine GUDELIA HERNANDEZ [address] [place] [address] Mima Duenas, TY [address] [place] [address] GUDELIA HERNANDEZ Start: 01-03-2025 End: 01-03-2025 Patient encounter procedure 01/03/2025 2:15 PM EDT Appointment [facility] [place] [address] [facility] [address] [place] [id number] [facility] [place] Start: 12-19-2024 End: 12-19-2025 CBC panel - Blood by Automated count CBC Lab Routine Diabetes mellitus screening Expected: 12/19/2024 (Approximate), Expires: 12/19/2025 [facility] Work Phone: Comment on above: Expected: 12/19/2024 (Approximate), Expi res: 12/19/2025 Start: 12-19-2024 End: 12-19-2025 Measurement of glucose 1 hour after glucose challenge for glucose tolerance test Glucose tolerance, 1 hour Lab Routine Diabetes mellitus screening Expected: 12/19/2024 (Approximate), Expires: 12/19/2025 [facility] [employer] Comment on above: Expected: 12/19/2024 (Approximate), Expi res: 12/19/2025 Start: 12-19-2024 End: 12-19-2024 Patient encounter procedure [facility] Comment on above: Arrived Start: 12-17-2024 COVID-19 Vaccine () COVID-19 Vaccine () [facility] Start: 12-17-2024 Influenza vaccination [facility] Start: 12-05-2024 End: 12-05-[address] [facility] Start: 12-04-2024 End: 12-04-2024 Professional / ancillary services management 12/04/2024 8:30 AM EDT Ancillary Procedure [facility] [place] [facility] [address] [place] [address] [facility] Start: 12-02-2024 Hospital admission [facility] Start: 12-02-2024 [facility] Start: 11-30-2024 Bacteria identified in Urine by Culture Urine Culture [facility] Start: 11-30-2024 End: 11-30-2024 Urine culture [facility] Start: 11-20-2024 End: 12-21-2024 Alpha fetoprotein, maternal Alpha fetoprotein, maternal Lab Routine Need for maternal serum alpha-protein (MSAFP) screening ([facility]) Expected: 11/20/2024 (Approximate), Expires: 12/21/2024 [facility] Comment on above: Expected: 11/20/2024 (Approximate), Expi res: 12/21/2024 Start: 11-20-2024 End: 02-20-2025 US for US OB 14+ weeks anatomy scan Imaging Routine Screening, , for anatomic survey ([facility]) Expected: 11/20/2024 (Approximate), Expires: 02/20/2025 [facility] Comment on above: Expected: 11/20/2024 (Approximate), Expi res: 02/20/2025 Start: 11-20-2024 End: 11-20-2024 Patient encounter procedure [facility] Comment on above: Arrived Start: 10-22-2024 End: 10-22-2024 Patient encounter procedure 10/22/2024 11:20 AM EDT Routine [facility] [address] [place] [address] Les Martinez, DO [address] [place] [address] [address] [place], [place] [id number] [facility] Start: 10-18-2024 Bacteria identified in Urine by Culture Urine Culture [facility] Start: 10-18-2024 Genital Culture Genital Culture [facility] Start: 10-18-2024 Urine culture [facility] Start: 10-18-2024 [facility] Start: 09-20-2024 End: 09-20-2025 ABO/Rh ABO/Rh Lab Routine Missed menses , unspecified gestational age Expected: 09/20/2024 (Approximate), Expires: 09/20/2025 [facility] Comment on above: Expected: 09/20/2024 (Approximate), Expi res: 09/20/2025 Start: 09-20-2024 End: 09-20-2025 Blood type and Indirect antibody screen panel - Blood Type and screen Lab Routine Missed menses , unspecified gestational age Expected: 09/20/2024 (Approximate), Expires: 09/20/2025 [facility] Work Phone: Comment on above: Expected: 09/20/2024 (Approximate), Expi res: 09/20/2025 Start: 09-20-2024 End: 09-20-2025 Drugs of abuse panel - Urine by Screen method Rapid drug screen, urine Lab Routine , unspecified gestational age Encounter for supervision of normal first in first trimester Expected: 09/20/2024 (Approximate), Expires: 09/20/2025 [facility] Comment on above: Expected: 09/20/2024 (Approximate), Expi res: 09/20/2025 Start: 09-13-2024 End: 09-13-2024 ambulatory 09/13/2024 2:30 PM EDT Initial [facility] [address] [place] [phone] [facility] Start: 09-13-2024 End: 09-13-2024 Professional / ancillary services management 09/13/2024 2:00 PM EDT Ancillary Procedure [facility] [address] [place] [address] [facility] Start: 09-03-2024 End: 09-03-2024 Nursing evaluation of patient and report Reproductive Endocrinology Infertility Comment on above: scan ob scan, non ivf Start: 08-22-2024 End: 08-22-2025 25-hydroxyvitamin D3 [Mass/volume] in Serum or Plasma Vitamin D 25 hydroxy Lab Routine H/O gastric bypass Vitamin D deficiency Expected: 08/22/2024 (Approximate), Expires: 08/22/2025 [facility] Comment on above: Expected: 08/22/2024 (Approximate), Expi res: 08/22/2025 Start: 08-22-2024 End: 08-22-2025 Cobalamin (Vitamin B12) [Mass/volume] in Serum or Plasma Vitamin B12 Lab Routine H/O gastric bypass Expected: 08/22/2024 (Approximate), Expires: 08/22/2025 [facility] Comment on above: Expected: 08/22/2024 (Approximate), Expi res: 08/22/2025 Start: 08-22-2024 End: 08-22-2025 Thiamine (aka Vitamin B1) Thiamine (aka Vitamin B1) Lab Routine H/O gastric bypass Expected: 08/22/2024 (Approximate), Expires: 08/22/2025 [facility] Comment on above: Expected: 08/22/2024 (Approximate), Expi res: 08/22/2025 Start: 08-22-2024 End: 08-22-2025 Thyrotropin [Units/volume] in Serum or Plasma TSH Lab Routine Abnormal thyroid function test Expected: 08/22/2024 (Approximate), Expires: 08/22/2025 [facility] Comment on above: Expected: 08/22/2024 (Approximate), Expi res: 08/22/2025 Start: 08-22-2024 End: 08-22-2025 Thyroxine (T4) free [Mass/volume] in Serum or Plasma T4, free Lab Routine Abnormal thyroid function test Expected: 08/22/2024 (Approximate), Expires: 08/22/2025 [facility] Comment on above: Expected: 08/22/2024 (Approximate), Expi res: 08/22/2025 Start: 08-22-2024 End: 08-22-2025 Triiodothyronine (T3) Free [Mass/volume] in Serum or Plasma T3, free Lab Routine Abnormal thyroid function test Expected: 08/22/2024 (Approximate), Expires: 08/22/2025 [facility] Work Phone: Comment on above: Expected: 08/22/2024 (Approximate), Expi res: 08/22/2025 Start: 08-22-2024 End: 08-22-2024 Patient encounter procedure 08/22/2024 10:00 AM EDT Office Visit [facility] ENDOCR[facility]OLOG[facility] [address] [place] [id number] Darleen Sinclair MD [address] [place] [address] Arrived [facility] Comment on above: Arrived Start: 08-20-2024 End: 08-20-2025 OBSTETRIC ULTRASOUND WHI OBSTETRIC ULTRASOUND WHI Anc Imaging Routine 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) Expected: 08/20/2024, Expires: 08/20/2025 [facility] Work Phone: Comment on above: Expected: 08/20/2024, Expires: Start: 08-20-2024 End: 08-20-2024 ambulatory 08/20/2024 8:30 AM EDT [facility] Reproductive Endocrinology Infertility [address] [place] [address] Shelly Hernandez APRN.POLICE BOOKING OFFICER [address] [place] [address] preg appt Reproductive Endocrinology Infertility Comment on above: preg appt Start: 07-07-2024 End: 07-07-2024 Patient encounter procedure [facility] Comment on above: donor thaw iui d Start: 05-09-2024 End: 05-09-2024 ambulatory 05/09/2024 8:00 AM [facility] Reproductive Endocrinology Infertility [address] [place] [address] Shelly Hernandez APRN.POLICE BOOKING OFFICER [address] [place] [address] donor sperm teach Reproductive Endocrinology Infertility Comment on above: donor sperm teach Start: 04-26-[address] 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 Expected: 03/11/2024, Expires: 06/10/2024 [facility] Comment on above: Expected: 03/11/2024, Expires: Start: 03-11-2024 End: 06-10-2024 CARRIER SCREEN, EXPANDED CARRIER SCREEN, EXPANDED Lab Routine Encounter for other genetic testing of female for procreative management Expected: 03/11/2024, Expires: 06/10/2024 [facility] Comment on above: Expected: 03/11/2024, Expires: Start: 03-11-2024 End: 06-10-2024 Chlamydia trachomatis+Neisseria gonorrhoeae DNA [Presence] in Unspecified specimen by AC with probe detection GONORRHEA/CHLAMYDIA NAAT Lab Routine Special screening examination for infectious diseases Expected: 03/11/2024, Expires: 06/10/2024 [facility] Comment on above: Expected: 03/11/2024, Expires: Start: 03-11-2024 End: 06-10-2024 Cytomegalovirus IgG Ab [Units/volume] in Serum or Plasma CMV IGG ANTIBODY BL Lab Routine Special screening examination for infectious diseases Expected: 03/11/2024, Expires: 06/10/2024 [facility] Comment on above: Expected: 03/11/2024, Expires: Start: 03-11-2024 End: 06-10-2024 Cytomegalovirus IgM Ab [Units/volume] in Serum or Plasma CMV IGM AB Lab Routine Special screening examination for infectious diseases Expected: 03/11/2024, Expires: 06/10/2024 [facility] Comment on above: Expected: 03/11/2024, Expires: Start: 03-11-2024 End: 06-10-2024 Hemoglobin A1c in Blood HEMOGLOBIN A1C Lab Routine Reproductive mgmt, 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 Expected: 03/11/2024, Expires: 06/10/2024 [facility] Comment on above: Expected: 03/11/2024, Expires: Start: 03-11-2024 End: 06-10-2024 Hepatitis B virus core Ab [Presence] in Serum HEPATITIS B CORE ANTIBODY TOTAL Lab Routine Special screening examination for infectious diseases Expected: 03/11/2024, Expires: 06/10/2024 [facility] Comment on above: Expected: 03/11/2024, Expires: Start: 03-11-2024 End: 06-10-2024 Hepatitis B virus surface Ag [Presence] in Serum HEPATITIS B SURFACE ANTIGEN Lab Routine Special screening examination for infectious diseases Expected: 03/11/2024, Expires: 06/10/2024 [facility] Comment on above: Expected: 03/11/2024, Expires: Start: 03-11-2024 End: 06-10-2024 Hepatitis C virus Ab [Presence] in Serum HEPATITIS C ANTIBODY IA WITH CONFIRMATION Lab Routine Special screening examination for infectious diseases Expected: 03/11/2024, Expires: 06/10/2024 [facility] Comment on above: Expected: 03/11/2024, Expires: Start: 03-11-2024 End: 06-10-2024 HIV 1+2 Ab [Presence] in Serum or Plasma by Immunoassay HIV 1/2 COMBO WITH REFLEX TO DIFFERENTIATION Lab Routine Special screening examination for infectious diseases Expected: 03/11/2024, Expires: 06/10/2024 [facility] Comment on above: Expected: 03/11/2024, Expires: Start: 03-11-2024 End: 06-10-2024 RUBELLA IGG ANTIBODY RUBELLA IGG ANTIBODY Lab Routine Special screening examination for infectious diseases Expected: 03/11/2024, Expires: 06/10/2024 [facility] Comment on above: Expected: 03/11/2024, Expires: Start: 03-11-2024 End: 06-10-2024 SYPHILIS TREPONEMAL W/REFLEX SYPHILIS TREPONEMAL W/REFLEX Lab Routine Special screening examination for infectious diseases Expected: 03/11/2024, Expires: 06/10/2024 [facility] Comment on above: Expected: 03/11/2024, Expires: Start: 03-11-2024 End: 06-10-2024 TYPE + SCREEN TYPE + SCREEN Blood Bank Routine Reproductive mgmt, 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 Expected: 03/11/2024, Expires: 06/10/2024 [facility] Comment on above: Expected: 03/11/2024, Expires: Start: 03-11-2024 End: 06-10-2024 VARICELLA ZOSTER IGG VARICELLA ZOSTER IGG Lab Routine Special screening examination for infectious diseases Expected: 03/11/2024, Expires: 06/10/2024 [facility] Work Phone: Comment on above: Expected: 03/11/2024, Expires: Start: 03-09-2024 End: 03-09-2024 ambulatory 03/09/2024 10:00 AM EST [facility] Reproductive Endocrinology Infertility [address] [place] [address] Shelly Hernandez APRN.POLICE BOOKING OFFICER [address] [place] [address] Donor sperm teach Reproductive Endocrinology Infertility Comment on above: Donor sperm teach Start: 02-20-2024 End: 02-20-2024 Patient encounter procedure 02/20/2024 2:50 PM EST Office Visit [facility] [address] [place] [phone] Les Martinez DO [address] [place] [address] Arrived [facility] Comment on above: Arrived Start: 12-18-2023 Covid-19 Vaccine ( season) Covid-19 Vaccine () [facility] Start: 12-18-2023 Covid-19 Vaccine () Covid-19 Vaccine () [facility] Start: 12-18-2023 Influenza vaccination Influenza Vaccine (#1) [facility] Start: 12-07-2023 End: 12-07-2023 [facility] Start: 06-15-2022 [facility] Start: 06-14-2022 [facility] Start: 06-13-2022 [facility] Start: 06-12-2022 [facility] Start: 06-11-2022 End: 06-11-2022 [facility] Start: 06-10-2022 Hospital admission [facility] Start: 06-10-2022 [facility] Start: 06-10-2022 [facility] Start: 06-09-2022 [facility] Start: 04-21-2022 Bacteria identified in Urine by Culture Urine Culture [facility] Start: 04-10-2022 Bacteria identified in Urine by Culture Urine Culture [facility] Start: 05-16-2020 End: 05-16-2020 Office Visit 05/16/2020 Office Visit Bariatrics Rashard Olivera, [address] [address] [facility] Invasive Bariatric Surg Start: 05-06-2020 End: 05-06-2020 Hospital Encounter [facility] Comment on above: XI LAPAROSCOPIC ROBOTIC GASTRIC BYPASS R OUX-EN-Y, LIVER BIOPSY, EGD- GI UNIT SCHEDULED. Start: 05-02-2020 End: 05-01-2021 COVID-19 COVID-19 Lab Routine Pre-op testing Expected: 05/02/2020, Expires: 05[facility]01[facility]2021 [facility] Comment on above: Expected: 05/02/2020, Expires: Start: 05-02-2020 End: 05-02-2020 Office Visit Camille [facility] Invasive Bariatric Surg Start: 01-11-2020 TSH Qn TSH testing [place], [place] Start: 12-18-2019 Influenza vaccination Flu vaccine (#1) [place], [place] Start: 2016 Screening [facility] malignant neoplasm [facility] cervix [facility] [facility] Start: 2014 DTaP,Tdap and Td Vaccines (1 - Tdap) DTaP,Tdap and Td Vaccines (1 - Tdap) [facility] Start: 2014 DTaP/Tdap/Td vaccine (1 - Tdap) DTaP/Tdap/Td vaccine (1 - Tdap) [place] Start: 2014 Hepatitis B Vaccine (1 of 3 - 19+ 3-dose series) Hepatitis B Vaccine (1 of 3 - 19+ 3-dose series) [facility] Start: 2014 Hepatitis B Vaccines (1 of 3 - 19+ 3-dose series) Hepatitis B Vaccines (1 of 3 - 19+ 3-dose series) [facility] Start: 2014 Urine microalbumin profile DTaP,Tdap,Td Vaccine (1 - Tdap) [facility] Start: 2013 Adult BMI Follow Up Plan Adult BMI Follow Up Plan [facility] Start: 2013 Adult BMI Screening Adult BMI Screening [facility] Start: 2013 Anxiety Screening Anxiety Screening [facility] Start: 2013 Depression Screening Depression Screening [facility] Start: 2013 Hepatitis C screening Hepatitis C Screening [facility] Start: 2013 HIV screening HIV Screening [facility] Start: 2010 HIV screening HIV screen [place], [place] Start: 2008 Varicella vaccination Varicella Vaccines (1 of 2 - 13+ 2-dose series) [facility] Start: 2007 Depression Screening Depression Screening [facility] Start: 2007 Tobacco Screening Tobacco Screening [facility] Start: 2006 HPV vaccine (1 - 2-dose series) HPV vaccine (1 - 2-dose series) [place] Start: 1996 MMR Vaccines (1 of 1 - Standard series) MMR Vaccines (1 of 1 - Standard series) [facility] Start: 1996 Varicella vaccine (1 of 2 - 2-dose childhood series) Varicella vaccine (1 of 2 - 2-dose childhood series) [facility] [place] Start: 1995 Hepatitis C screening Hepatitis C screen [place], [place] Start: 1995 HIV screening HIV Screening [facility] Start: 1995 Lipid panel Lipid Panel [facility] Start: 1995 Yearly Adult Physical Yearly Adult Physical [facility] aPTT in Platelet poo r plasma by Coagulation assay [facility] Bacteria identified in Genital specimen by Aerobe culture [facility] Bacteria identified in Urine by Culture Urine culture Microbiology Routine Missed menses Ordered: 09/20/2024 [facility] Comment on above: Ordered: 09/20/2024 Calcitriol [Mass/vol ume] in Serum or Plasma [facility] CBC W Auto Different ial panel - Blood CBC and differential Lab Routine Missed menses , unspecified gestational age Ordered: 09/20/2024 [facility] Comment on above: Ordered: 09/20/2024 CHLAMYDIA TRACHOMATI S (GENITO/STI) CHLAMYDIA TRACHOMATIS (GENITO/STI) Lab Routine Exposure to STD Ordered: 11/20/2024 [facility] Comment on above: Ordered: 11/20/2024 Continuous pulse oximetry Pulse oximetry, continuous Respiratory Care Routine Every 4hr until discontinued starting 05/06/2020 [place] Comment on above: Every 4hr until discontinued starting CT Abdomen and Pelvi s WO and W contrast IV [facility] Cytology Cervical or vaginal smear or scraping study Pap Smear Pathology and Cytology Routine Well woman exam with routine gynecological exam Ordered: 02/20/2024 [facility] Work Phone: Comment on above: Ordered: 02/20/[address] [facility] F5 gene mutations fo und [Identifier] in Blood or Tissue by Molecular genetics method Nominal [facility] Factor VIII: C assay [facility] Glucose measurement estimated from glycated hemoglobin [facility] Hemoglobin A1c/Hemoglobin.total in Blood [facility] Hemoglobin A1c/Hemoglobin.total in Blood Hemoglobin A1c Lab Routine Missed menses , unspecified gestational age Ordered: 09/20/2024 [facility] Comment on above: Ordered: 09/20/2024 Hepatitis B virus priest rface Ag [Presence] in Serum or Plasma by Immunoassay Hepatitis B surface antigen Lab Routine Missed menses , unspecified gestational age Ordered: 09/20/2024 [facility] Comment on above: Ordered: 09/20/2024 Hepatitis C virus Ab [Presence] in Serum or Plasma by Immunoassay Hepatitis C antibody Lab Routine Missed menses , unspecified gestational age Ordered: 09/20/2024 [facility] Comment on above: Ordered: 09/20/2024 HIV-1/HIV-2 antigen/antibody combination immunoassay HIV-1 and HIV-2 antibodies Lab Routine Missed menses , unspecified gestational age Ordered: 09/20/2024 [facility] Comment on above: Ordered: 09/20/2024 INR in Platelet poor plasma by Coagulation assay [facility] Mullerian inhibiting substance [Mass/volume] in Serum or Plasma [facility] Nebulizer therapy HHN Treatment Respiratory Care Routine TID until discontinued starting 05/06/2020 [facility] [place] Comment on above: TID until discontinued starting 05/06/19 21 Neisseria gonorrhoea e DNA [Presence] in Unspecified specimen by AC with probe detection Neisseria gonorrhea DNA probe, direct Lab Routine Exposure to STD Ordered: 11/20/2024 [facility] Comment on above: Ordered: 11/20/2024 Oxygen therapy [[facility] Data Set] Initiate Oxygen Therapy Protocol Respiratory Care Routine Daily until discontinued [facility]: Daily until discontinued starting 2020 Patient Education [facility] Work Phone: Patient referral [facility] Work Phone: Reagin Ab [Presence] in Serum by RPR RPR Lab Routine Missed menses , unspecified gestational age Ordered: 09/20/2024 [facility] Comment on above: Ordered: 09/20/2024 Rubella antibody, IgG Rubella an tibody, IgG Lab Routine Missed menses , unspecified gestational age Ordered: 09/20/2024 [facility] Comment on above: Ordered: 09/20/2024 Spirometry panel Incentive marti metry Respiratory Care Routine Every 2hr while awake until discontinued starting 05/06/2020 [facility] [place] Comment on above: Every 2hr while awake until discontinued starting 05/06/2020 SURESWAB(R) ADVANCED VAGINITIS PLUS, TMA SURESWAB(R) ADVANCED VAGINITIS PLUS, TMA Pathology and Cytology Routine Exposure to STD Ordered: 11/20/2024 [facility] Work Phone: Comment on above: Ordered: 11/20/2024 Surgical Pathology Surgical Path ology Lab Routine Release Upon Ordering for 1 Occurrences starting 05/06/2020 [facility] [place] Comment on above: Release Upon Ordering for 1 Occurrences starting 05/06/2020 End: 11-20-2025 Thyrotropin [Units/volume] in Serum or Plasma TSH Lab Routine Thyroid disease every 4 weeks for 6 Occurrences starting 11/20/2024 until 11/20/2025 [facility] Comment on above: every 4 weeks for 6 Occurrences starting 11/20/2024 until 11/20/2025 von Willebrand facto r (vWf) Ag [Units/volume] in Platelet poor plasma [facility] von Willebrand facto r (vWf) multimers in Platelet poor plasma by Immunoblot [facility] von Willebrand facto r (vWf) ristocetin cofactor actual/normal in Platelet poor plasma by Platelet aggregation [facility] Immunizations Immunization Date Immunization Notes Care Provider [facility]2022 tetanus toxoid, reduced diphtheria toxoid, and acellular pertussis vaccine, adsorbed Darleen Sinclair MD Work Phone: [facility] 08-19-2020 COVID-19 mRNA-1273 (Moderna) MELY Ford Work Phone: [facility] 07-22-2020 COVID-19 mRNA-1273 (Moderna) MELY Ford Work Phone: [facility] Payers Date Payer Category Payer Self-pay [id number] 2022 Medicaid [id number] 2022 Medicaid [id number] 2020 Unknown [id number] 2015 Unknown [id number] [id number] .[id number] 1995 Unknown [id number] 2.16.840.1.111996.3.579.2.176 1995 Unknown [id number] 2.16.840.1.011493.3.579.2.175 1995 Unknown [id number] 2.16.840.1.079352.3.579.2.175 1995 Unknown [id number] 2.16.840.1.765921.3.579.2.175 1995 Unknown [id number] 2.16.840.1.954326.3.579.2.175 1995 Unknown [id number] 2.16.840.1.110859.3.579.2.124 4 1995 Unknown [id number] 2.16.840.1.679224.3.579.2.718 1995 Unknown [id number] 2.16.840.1.872638.3.579.2.718 1995 Unknown [id number] 2.16.840.1.238484.3.579.2.718 1995 Unknown [id number] 2.16.840.1.081395.3.579.2.718 1995 Unknown [id number] 2.16.840.1.201296.3.579.2.718 1995 Unknown [id number] 2.16.840.1.482083.3.579.2.718 1995 Unknown [id number] 2.16.840.1.078409.3.579.2.718 1995 Unknown [id number] 2.16840.1.355373.3.579.2.128 6 1995 Unknown [id number] 2.16.840.1.097440.3.579.2.128 6 1995 Unknown [id number] 2.16840.1.750779.3.579.2.125 9 1995 Unknown [id number] 2.840.1.975288.3.579.2.125 9 1995 Unknown [id number] 2.840.1.685621.3.579.2.125 9 1995 Unknown [id number] 2.840.1.535486.3.579.2.125 9 1995 Unknown [id number] 2.840.1.428349.3.579.2.125 9 1995 Unknown [id number] 2.840.1.198671.3.579.2.125 9 1995 Unknown [id number] 2.840.1.543902.3.579.2.125 9 1995 Unknown [id number] 2.16840.1.232636.3.579.2.125 9 1995 Unknown [id number] 2.840.1.888276.3.579.2.128 6 Private Health Insurance [facility] [id number] Unknown [id number] 2.840.1.746737.19 Unknown [id number] .840.1.956916.3.579.2.531 Unknown [id number] 2.840.1.085101.3.579.2.531 Unknown [id number] 2.840.1.672575.3.579.2.531 Social History Date Type Detail Facility Start: 04-22-2020 End: 06-08-2023 Tobacco smoking status NHIS Never smoker [facility] Start: 04-22-2020 End: 12-05-2024 Tobacco use and exposure Never used [facility] Start: 04-22-2020 End: 05-02-2020 Alcohol intake Current non-drinker of [facility] (finding[facility] [place] Start: 1995 Sex Assigned At Not on file [facility] [place] Exposure to SARS-CoV-2 (event) Not sure [facility] [place] Tobacco smoking status [facility] Start: 05-20-2020 End: 11-28-2023 Sex Assigned At Female [facility] Other Start: 1995 Sex Assigned At Female [facility] Start: 06-10-2022 Tobacco smoking status WVIS Current some day smoker [facility] Start: 04-18-2023 End: 12-07-2023 Tobacco smoking status NHIS Smoker (finding) [facility] Start: 11-28-2023 End: 10-26-2024 Tobacco smoking status WVIS Smokes tobacco daily [facility] Start: 04-18-2023 History of tobacco use Cigarette Smoker [facility] Start: 05-20-2020 End: 11-28-2023 Cigarettes smoked current (pack per day) - Reported 0.5 [facility] Start: 11-28-2023 End: 12-05-2024 Alcoholic beverage intake Ex-drinker (finding) [facility] Start: 01-10-2023 Alcohol Comment caffeine: 1-2 cups per day tea [facility] Start: 01-19-2023 Gender identity Identifies as female gender (finding) [facility] Start: 11-21-2014 End: 02-27-2024 Sex Female (finding) [facility] Tobacco smoking status WVIS Tobacco smoking consumption unknown [facility] Start: 08-01-2023 [facility] Start: 10-18-2024 End: 12-05-2024 Tobacco smoking status WVIS Ex-smoker (finding) [facility] NEGATED: Highlighted row [facility] Medical Equipment Procedure Code Equipment Code [...] FDA Start: 10-15-2019 Tendon/ligament bone anchor, non-bioabsorbable [id number] FDA Start: 12-07-2023 Tendon/ligament bone anchor, non-bioabsorbable ()[id number] FDA Start: 12-07-2023 Tendon/ligament bone anchor, non-bioabsorbable ()[id number] FDA Start: 12-07-2023 Tendon/ligament bone anchor, non-bioabsorbable ()[id number] FDA Start: 12-07-2023 Goals Date Patient Goal Desired Activity /State Personal health goal Functional Status Date Assessment Result Facility 06-11-2022 Functional status Patient at Baseline [facility] Work Phone: 06-10-2022 Functional status Patient at Baseline [facility] Work Phone: Mental Status Date Assessment Result Facility 06-11-2022 Cognitive function Cognitive Sta tus Patient at Baseline [facility] Work Phone: 06-10-2022 Cognitive function Cognitive Sta tus Patient at Baseline [facility] Work Phone: Clinical Notes 07-16-2021 to 01-03-2025 Telephone Encounter - Roslyn Griffin RN - 01/03/2025 3:44 PM EDTTelephone Encounter - Roslyn Griffin RN - 01/03/2025 3:44 PM MELVI Contreras - 12/19/2024 10:00 AM EDTPatient Instructions Note Date & Type Note Facility 01-03-2025 Miscellaneous Notes Called patient to schedule her follow up survey in 4-6 weeks per appointment tracker. No answer left message to call back to schedule the follow up ultrasound. documented in this encounter [facility] 01-03-2025 Telephone encounter Note Called patient to schedule her follow up survey in 4-6 weeks per appointment tracker. No answer left message to call back to schedule the follow up ultrasound. [facility] 12-19-2024 History of Present illness Narrative Reason for [...] appearance. She is normal weight. HENT: Head: Normocephalic. Cardiovascular: Rate and Rhythm: Normal rate. Pulses: Normal pulses. Pulmonary: Effort: Pulmonary effort is normal. Breath sounds: Normal breath sounds. Abdominal: Palpations: Abdomen is soft. Musculoskeletal: General: Normal range of motion. Neurological: General: No focal deficit present. Mental Status: She is alert and oriented to person, place, and time. Psychiatric: Mood and Affect: Mood normal. Behavior: Behavior normal. Thought Content: Thought content normal. Judgment: Judgment normal. Vitals and nursing note reviewed. Vitals: Estimated body mass index is 36.79 kg/m as calculated from the following: Height as of 08/22/24: 5' 11 . Weight as of this encounter: 263 lb 12.8 oz. BP: 118/60 No LMP recorded. Patient is . ASSESSMENT & PLAN ICD-10-CM 1. 22 weeks gestation of ([facility]) Z3A.22 POCT urinalysis dipstick manually resulted 2. Second trimester ([facility]) Z34.92 POCT urinalysis dipstick manually resulted 3. Thyroid disease E07.9 4. H/O gastric sleeve Z90.3 5. H/O iron deficiency anemia Z86.2 6. Diabetes mellitus screening Z13.1 CBC Glucose tolerance, 1 hour CBC Glucose tolerance, 1 hour Return OB: Patient presents today for a routine obstetrics appointment. Patient is currently 22w1d . Patient states she is doing well but has complaints of being tired due to current . Patient has verbalizes frequent movement. Orders Placed This Encounter Procedures CBC Glucose tolerance, 1 hour POCT urinalysis dipstick manually resulted Follow Up: Patient is to return to office in 4 week for routine OB appointment. Documented by MELVI Engle on behalf of: MELVI Engle documented in this encounter [facility] 12-05-2024 History of Present illness Narrative Images [...] follows with the behavioral health up in [place] History of migraines. Has been getting some [...] Pee's thyroiditis Hx of iron deficiency anemia product of in vitro fertilization (IVF) Ovarian [...] mouth in the morning., Disp: , Rfl: [id number] ( 19) 29 mg iron- 1 [...] Calcium: recommend 1000-1200mg daily; if deficient, recommend 1585-0263 mg PO daily in divided doses Vitamin [...] 5. 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 ([facility]) I reviewed with the patient [...] sometimes have neonates with adaptation syndrome. The contracts representative should be made aware at the time [...] Latricia Lindquist MD, FACOG (she/hers) Maternal- Medicine [facility] [address] [facility] [address] [place] [address] This document was created with Conver[employer] Access technology. Though I make every effort to review the dictation as it is transcribed, on occasion the spoken word can be misinterpreted by the technology leading to inappropriate words, phrases, or sentences. This note is addressed to the requesting provider as a consultation for clinical guidance. Specific medical abbreviations are occasionally used and those are generally approved by the [place]?Board of?Obstetrics and?Gynecology?as well as?Marilee s abbreviations. The above plan of care was based solely on the diagnoses for which a consultation was requested. ?More frequent testing may be indicated based on her other medical/obstetrical conditions. The management of other or medical conditions is beyond the scope of requested consultation and will continue to be followed by the primary hair tinter or primary care provider. Note to patient: The Cures Act makes medical notes like these [...] CF Have you been seen here at [facility] in a previous ? NA Recent ER visits or hospitalizations? See notes above Bring blood sugar log or meter with you today? (Please bring them with you for every visit at [facility]) NA Flu vaccine (Feb-June)? NA Any concerns that you would like me to mention to the provider today? Questions about glucose testing and her having gastric bypass surgery documented in this encounter [facility] 11-20-2024 History of Present illness Narrative Reason [...] nursing note reviewed. Exam conducted with a aircraft cleaning supervisor present. Vitals: Estimated body mass index is [...] gonorrhea DNA probe, direct 3. Second trimester ([facility]) Z34.92 POCT urinalysis dipstick manually resulted 4. 18 weeks gestation of ([facility]) Z3A.18 5. Need for maternal serum alpha-protein (MSAFP) screening ([facility]) Z36.1 Alpha fetoprotein, maternal Alpha fetoprotein, maternal 6. Screening, , for anatomic survey ([facility]) Z36.89 US OB 14+ weeks [...] Les Martinez DO documented in this encounter [facility] 10-22-2024 History of Present illness Narrative [...] nursing note reviewed. Exam conducted with a aircraft cleaning supervisor present. Vitals: Estimated body mass index is 31.24 kg/m as calculated from the following: Height as of 08/22/24: 5' 11 . Weight as of this encounter: 224 lb. BP: 110/62 No LMP recorded. Patient is . ASSESSMENT & PLAN ICD-10-CM 1. 13 weeks gestation of ([facility]) Z3A.13 POCT urinalysis dipstick manually resulted 2. Second trimester ([facility]) Z34.92 POCT urinalysis dipstick manually resulted 3. Thyroid disease E07.9 4. H/O gastric sleeve Z90.3 5. H/O iron deficiency anemia Z86.2 6. resulting from in vitro fertilization in first trimester ([facility]) O09.811 Return OB: Patient presents today [...] Les Martinez DO documented in this encounter [facility] 10-18-2024 Radiology Diagnostic study note [facility] [place] [address] [place] [address] Ultrasound Report Signed Patient: Jaz Sanders MR#: [id number] : 1995 Acct:[id number] Age/Sex: 29 / F ADM Date: 5 Loc: ER Room: Type: [facility] ER Attending Dr: Ordering Provider: Kassidy Arriaza [...] Jr., D.ORenae 10/18/2024 2:21 PM Dictation Location: [place] [address] Tech: Natalie Haji Transcribed By: MAITE 10/18/24 1421 Dictated By: Sravan Dickinson Jr, DO 10/18/24 1419 Signed By: 10/18/24 1421 [facility] 09-20-2024 History of Present illness Narrative [...] screen, urine; Future Nurse Note: Patient declined [place] at this time. Patient is an IVF from [facility]. OB Intake: Patient presents today for first OB visit. Patients history has been reviewed in great detail including any potential risks. Patient signed consent forms and patient desires testing in both trimesters. Patient currently has no complaints and has been advised to drink 6-8 glasses of water a day, eat no raw or undercooked meat, and stay away from [facility]. Patient has also been advised to [...] Marsha Asif MA documented in this encounter [facility] 09-05-2024 Note HNO ID: [id number] Author: SHELLY HERNANDEZ APRN.JARROD Service: ? Author Type: Nurse Practitioner Type: Procedures Filed: 09/05/2024 22:45 Note Text: WHI JAMEL IUI PROCEDURE NOTE Date: 07/31/2024 Primary Proceduralist: Shelly Hernandez APRN.POLICE BOOKING OFFICER Consents and Labels Consent Signed: Informed Consent obtained and on the chart Labels Verified With Patient: Yes Indications: Jaz Sanders, is a 29 year old female here today for intrauterine insemination. IUI # 3. Cycle Day: Last menstrual period: 07/19/2024 [place] Protocol: UNIVERSAL PROTOCOL / SAFETY CHECKLIST Procedure [...] IUI IUI Date: 07/31/24 Partner's Name: Sravan Sandres IUI Time: 3:24 PM EDT Partner's : [...] DATE: September 05, 2024 TIME: 10:45 PM [facility] 09-03-2024 History of Present illness Narrative [...] 2024 5:39 PM documented in this encounter [facility] 09-03-2024 Note HNO ID: [id number] Author: CHARISSE WEAVER APRN.CNP Service: ? Author Type: Nurse Practitioner Type: Progress Notes Filed: 09/03/2024 17:42 Note Text: Jaz Lynda here today for a scan. [...] Weaver APRN.CNP September 03, 2024 5:39 PM [facility] 08-30-2024 Note HNO ID: [id number] Author: MIKEY TORRES MD Service: ? Author Type: Physician Type: Progress Notes Filed: 08/30/2024 16:36 Note Text: Viable ratliff IUP Size equal Date. Plan: patient to follow up with her ob for care. Stacy Banuelos MD [facility] 08-30-2024 History of Present illness Narrative [...] Shelly Hernandez APRN.CNP documented in this encounter [facility] 08-28-2024 Note HNO ID: [id number] Author: SHELLY HERNANDEZ APRN.POLICE BOOKING OFFICER Service: ? Author Type: Nurse Practitioner Type: [...] scan next week as scheduled Shelly Hernandez APRN.POLICE BOOKING OFFICER [facility] 08-24-2024 Telephone encounter Note spoke with [...] open slot. Call to patient needed: no [facility] 08-24-2024 Miscellaneous Notes spoke with [...] Jaz Sanders called today. : 1995 (home) [phone] (cell) Reason for call: pt called today informing the nurse she has been experiencing pain of level 4 from 1-10. Pt has been experiencing pain for 2 day. 5 weeks today. The patients preferred pharmacy has been captured for this encounter? Angella Morillo Doctor Of Dental Surgery documented in this encounter [facility] 08-24-2024 Telephone encounter Note See 08/23/24 LIBBY Ward RN August 24, 2024 1:58 PM [facility] 08-24-2024 Miscellaneous Notes See 08/23/24 LIBBY Ward RN August 24, 2024 1:58 PM Pt would like a call back documented in this encounter [facility] 08-24-2024 Telephone encounter Note Pt would like a call back [facility] 08-23-2024 Telephone encounter Note Name: Jaz Sanders called today. : 1995 (home) [phone] (cell) Reason for call: pt called today informing the nurse she has been experiencing pain of level 4 from 1-10. Pt has been experiencing pain for 2 day. 5 weeks today. The patients preferred pharmacy has been captured for this encounter? Angella Morillo Doctor Of Dental Surgery [facility] 08-23-2024 Telephone encounter Note See 08/20 Distance health visit Marianna Ward RN August 23, 2024 8:53 AM [facility] 08-23-2024 Miscellaneous Notes See 08/20 Distance health visit Marianna Ward RN August 23, 2024 8:53 AM documented in this encounter [facility] 08-22-2024 History of Present illness [...] levothyroxine 50 mcg daily, administered in the director pharmaceutical on an empty stomach. There have been [...] year (around 08/22/2025). documented in this encounter [facility] 08-20-2024 Note HNO ID: [id number] Author: SHELLY HERNANDEZ APRN.POLICE BOOKING OFFICER Service: ? Author Type: Nurse Practitioner Type: [...] visit. Either the patient or their legal retail service representative has been informed of the risks [...] providers Schedule with OB: 09/13 Shelly Hernandez APRN.POLICE BOOKING OFFICER August 20, 2024 8:33 AM Please schedule the patient for the following- Location: [place] Provider: nurse Visit type: Reason for visit/appointment notes: scan Date: 09/03 Time (requested): 1040 If slot is full, please schedule the closest open slot. Call to patient needed: no I spent a total of 30 minutes on the date of the service which included preparing to see the patient, iisw-ou-rklq patient care, completing clinical documentation, obtaining and/or [...] grammatical and typographical errors missed in proofreading. [facility] 08-20-2024 History of Present illness Narrative [...] visit. Either the patient or their legal retail service representative has been informed of the risks [...] reproductive technology in first trimester ([facility]) O09.811 OBSTETRIC ULTRASOUND I Plan: further labwork needed: no scan scheduled: 09/03 medications to discontinue: patient to discuss status with her providers Schedule with OB: 09/13 Shelly Hernandez APRN.POLICE BOOKING OFFICER August 20, 2024 8:33 AM Please schedule the patient for the following- Location: [place] Provider: nurse Visit type: Reason for visit/appointment notes: scan Date: 09/03 Time (requested): 1040 If slot is full, please schedule the closest open slot. Call to patient needed: no I spent a total of 30 minutes on the date of the service which included preparing to see the patient, otol-nv-yjqh patient care, completing clinical documentation, obtaining and/or [...] missed in proofreading. documented in this encounter [facility] 08-16-2024 Telephone encounter Note Called patient back to phone number listed in Epic-no answer. Lm for patient to look out for Mychart message. Daniel Hanna APRN.CNP August 16, 2024 5:15 PM [facility] 08-16-2024 Miscellaneous Notes Called patient back to phone number listed in Epic-no answer. Lm for patient to look out for Mychart message. Daniel Hanna APRN.CNP August 16, 2024 5:15 PM Name: Jaz Sanders called today. : 1995 (home) [phone] (cell) Reason for call: pt called that she got positive test, she has been having having cramping since last night , it happens every hours for couple minutes. The patients preferred pharmacy has been captured for this encounter? yes Angella Morillo Doctor Of Dental Surgery documented in this encounter [facility] 08-16-2024 Telephone encounter Note Name: Jaz Sanders called today. : 1995 (home) [phone] (cell) Reason for call: pt called that she got positive test, she has been having having cramping since last night , it happens every hours for couple minutes. The patients preferred pharmacy has been captured for this encounter? yes Angella Yisel Doctor Of Dental Surgery [facility] 08-15-2024 Telephone encounter Note Pt is preg and wants to know if she can take benadryl due to her having hives [facility] 08-15-2024 Miscellaneous Notes Pt is preg and wants to know if she can take benadryl due to her having hives documented in this encounter [facility] 07-31-2024 Note HNO ID: [id number] Author: DOMINGUEZ BARRY, ? Service: ? Author Type: Air Intelligence Officer Type: Progress Notes Filed: 09/05/2024 22:45 Note Text: IUI Cryobio Donor # [id number] Pre: frozen washed specimen Post: 82 M/ml, 67% Insem # 27.5 million [facility] 07-31-2024 Note HNO ID: [id number] Author: DOMINGUEZ BARRY, ? Service: ? Author Type: Air Intelligence Officer Type: Progress Notes Filed: 07/31/2024 15:26 Note Text: Thaw for IUI. Dominguez Barry [facility] 07-31-2024 History of Present illness Narrative Thaw for IUI. Dominguez Barry documented in this encounter [facility] 07-31-2024 Note HNO ID: [id number] Author: DOMINGUEZ BARRY, ? Service: ? Author Type: Air Intelligence Officer Type: Progress Notes Filed: 09/05/2024 22:45 Note Text: IUI specimen released to provider Dominguez Barry July 31, 2024 3:24 PM [facility] 07-31-2024 Note HNO ID: [id number] Author: MUSTAPHA TELLO MA Service: ? Author Type: Stone Rubber Type: Progress Notes Filed: 07/31/2024 15:12 Note Text: Patient verified by full name and date of . Jaz Sanders is here today for an IUI. LMP: 07/19/2024 Natural cycle IUI Timed With: Ovulation Predictor Kit , Date: 07/30/2024 What Job Titles Mean offered: Patient declines Mustapha Tello MA July 31, 2024 3:12 PM [facility] 07-30-2024 Telephone encounter Note patient's OPK today was dark but not positive Plan: test again tomorrow. if darker, schedule IUI on Tuesday if recep than today, schedule IUI the same day Shelly Hernandez APRN.CNP July 30, 2024 6:00 PM [facility] 07-30-2024 Miscellaneous Notes patient's OPK today was dark but not positive Plan: test again tomorrow. if darker, schedule IUI on Tuesday if recep than today, schedule IUI the same day Shelly Hernandez APRN.CNP July 30, 2024 6:00 PM N- ivf Pt has questions regarding IUI documented in this encounter [facility] 07-30-2024 Telephone encounter Note N- ivf Pt has questions regarding IUI [facility] 07-08-2024 Note HNO ID: [id number] Author: NICHELLE GONZALEZ, ? Service: ? Author Type: Air Intelligence Officer Type: Progress Notes Filed: 07/19/2024 07:50 Note Text: IUI Cryobio #[id number] Washed frozen specimen Post: 31 m/ml, 77% Insem#: 10.8 million [facility] 07-08-2024 History of Present illness Narrative IUI Cryobio #[id number] Washed frozen specimen Post: 31 m/ml, 77% Insem#: 10.8 million IUI specimen released to provider Nichelle Gonzalez July 07, 2024 10:10 AM documented in this encounter [facility] 07-07-2024 Note HNO ID: [id number] Author: NICHELLE GONZALEZ, ? Service: ? Author Type: Air Intelligence Officer Type: Progress Notes Filed: 07/19/2024 07:50 Note Text: IUI specimen released to provider Nichelle Gonzalez July 07, 2024 10:10 AM [facility] 07-07-2024 Note HNO ID: [id number] Author: MIKEY TORRES MD Service: ? Author [...] Cycle Day: 14 Last menstrual period: 06/24/2024 [place] Protocol: UNIVERSAL PROTOCOL / SAFETY CHECKLIST Procedure [...] surrogate`. IUI IUI Date: 07/07/24 Partner's Name: Sraavn Sanders IUI Time: 10:15 AM EDT Partner's [...] primary surgeon/proceduralist with assistance. Stacy Banuelos MD [facility] 07-07-2024 Procedure note I JAMEL IUI PROCEDURE NOTE Date: 07/07/2024 Primary Proceduralist: Nakia Duran MD Consents and Labels Consent Signed: Informed Consent obtained and on the chart Labels Verified With Patient: Yes Indications: Jaz Sanders, is a 29 year old No obstetric history on file. female here today for intrauterine insemination. IUI # 2. Cycle Day: 14 Last menstrual period: 06/24/2024 [place] Protocol: UNIVERSAL PROTOCOL / SAFETY CHECKLIST Procedure [...] primary surgeon/proceduralist with assistance. Stacy Banuelos MD [facility] 07-07-2024 Procedure note WHI JAMEL IUI PROCEDURE NOTE Date: 07/07/2024 Primary Proceduralist: Nakia Duran MD Consents and Labels Consent Signed: Informed Consent obtained and on the chart Labels Verified With Patient: Yes Indications: Jaz Sanders, is a 29 year old No obstetric history on file. female here today for intrauterine insemination. IUI # 2. Cycle Day: 14 Last menstrual period: 06/24/2024 [place] Protocol: UNIVERSAL PROTOCOL / SAFETY CHECKLIST Procedure [...] Stacy Banuelos MD documented in this encounter [facility] 07-07-2024 Note HNO ID: [id number] Author: NICHELLE GONZALEZ, ? Service: ? Author Type: Air Intelligence Officer Type: Progress Notes Filed: 07/07/2024 09:41 Note Text: Thaw for IUI Nichelle Gregory Larrykimberly [facility] 07-07-2024 History of Present illness Narrative Thaw for IUI Nichelle E Larrykimberly documented in this encounter [facility] 07-06-2024 Telephone encounter Note Called the pt back. Pt had an US done 07/04/24--Possible small 4 mm intracervical canal polyp. No other abnormal findings. Advised to move on with IUI tomorrow. FYI: Dr. Guy and TY Vega. Please let me know if any different instructions. Becki Isaacs PA-C July 06, 2024 3:26 PM [facility] 07-06-2024 Miscellaneous Notes Called the [...] Please call patient. documented in this encounter [facility] 07-06-2024 Telephone encounter Note Patient states she is calling back unsure about if she is okay to proceed with iui tomorrow. Please call patient. [facility] 07-06-2024 Telephone encounter Note See other TE for 07/04 Marianna Ward RN July 06, 2024 11:17 AM [facility] 07-06-2024 Miscellaneous Notes See other TE for 07/04 Marianna Ward RN July 06, 2024 11:17 AM On day 11 now, inquiring about if okay to proceed with iui with cervical polyp. Patient believes it will be tomorrow or Tuesday for iui- inquiring if polyp needs to be removed first. documented in this encounter [facility] 07-05-2024 Telephone encounter Note On day 11 now, inquiring about if okay to proceed with iui with cervical polyp. Patient believes it will be tomorr or Tuesday for iui- inquiring if polyp needs to be removed first. [facility] 07-04-2024 Telephone encounter Note Spoke [...] Hernandez APRN.CNP July 04, 2024 7:30 PM [facility] 07-04-2024 Miscellaneous Notes Spoke with Jaz regarding multiple questions. #1 - ultrasound results LMP 2/10, natural cycle, LH surge 2/ -IUI 2/22 - cervix bled during IUI, [...] 2024 7:30 PM documented in this encounter [facility] 07-04-2024 Note HNO ID: [id number] Author: IGNACIO GUY MD Service: ? Author Type: Physician Type: Progress Notes Filed: 07/04/2024 16:27 Note Text: 1 [facility] 07-04-2024 History of Present illness Narrative 1 documented in this encounter [facility] 06-09-2024 Note HNO ID: [id number] Author: IGNACIO GUY MD Service: ? Author [...] Cycle Day: 13 Last menstrual period: 05/28/2024 [place] Protocol: UNIVERSAL PROTOCOL / SAFETY CHECKLIST Procedure [...] was discussed with the patient or authorized retail service representative. The patient or authorized retail service representative has agreed to proceed with the sensitive examination. (Sensitive examination includes inspection and/or palpation of the breasts, pelvis, prostate and anorectal regions) Patient declined aircraft cleaning supervisor. Vidhi Sheldon MD IUI IUI Date: 06/09/24 [...] stopped. Will get pelivc scan here at [facility] if not with this IUI prior pt proceeding with another attmept at IUI. Ignacio Guy MD June 09, 2024 12:30 PM SIGNATURE: Vidhi Sheldon MD PATIENT NAME: Jaz Sanders DATE: June 09, 2024 TIME: 12:01 PM [facility] 06-09-2024 Procedure note WHI JAMEL IUI PROCEDURE NOTE Date: 06/09/2024 Primary Proceduralist: Vidhi Sheldon MD Consents and Labels Consent Signed: Informed Consent obtained and on the chart Labels Verified With Patient: Yes Indications: Jaz Sanders, is a 29 year old No obstetric history on file. female here today for intrauterine insemination. IUI # 1. Cycle Day: 13 Last menstrual period: 05/28/2024 [place] Protocol: UNIVERSAL PROTOCOL / SAFETY CHECKLIST Procedure [...] was discussed with the patient or authorized retail service representative. The patient or authorized retail service representative has agreed to proceed with the sensitive examination. (Sensitive examination includes inspection and/or palpation of the breasts, pelvis, prostate and anorectal regions) Patient declined aircraft cleaning supervisor. Vidhi Sheldon MD IUI IUI Date: 06/09/24 [...] stopped. Will get pelivc scan here at [facility] if not with this IUI prior pt proceeding with another attmept at IUI. Ignacio Guy MD June 09, 2024 12:30 PM SIGNATURE: Vidhi Sheldon MD PATIENT NAME: Jaz Sanders DATE: June 09, 2024 TIME: 12:01 PM [facility] Work Phone: 06-09-2024 Procedure note [...] Cycle Day: 13 Last menstrual period: 05/28/2024 [place] Protocol: UNIVERSAL PROTOCOL / SAFETY CHECKLIST Procedure [...] was discussed with the patient or authorized retail service representative. The patient or authorized retail service representative has agreed to proceed with the sensitive examination. (Sensitive examination includes inspection and/or palpation of the breasts, pelvis, prostate and anorectal regions) Patient declined aircraft cleaning supervisor. Vidhi Sheldon MD IUI IUI Date: 06/09/24 [...] stopped. Will get pelivc scan here at [facility] if not with this IUI prior pt proceeding with another attmept at IUI. Ignacio Guy MD June 09, 2024 12:30 PM SIGNATURE: Vidhi Sheldon MD PATIENT NAME: Jaz Sanders DATE: June 09, 2024 TIME: 12:01 PM documented in this encounter [facility] 06-09-2024 Note HNO ID: [id number] Author: NICHELLE GONZALEZ, ? Service: ? Author Type: Air Intelligence Officer Type: Progress Notes Filed: 06/09/2024 12:30 Note Text: IUI Cryobio #: [id number] Washed frozen sample Post: 42 m/ml, 74% Insem#: 15.5 million [facility] 06-09-2024 History of Present illness Narrative IUI Cryobio #: [id number] Washed frozen sample Post: 42 m/ml, 74% Insem#: 15.5 million IUI specimen released to provider Nichelle Gonzalez June 09, 2024 11:24 AM documented in this encounter [facility] 06-09-2024 Note HNO ID: [id number] Author: NICHELLE GONZALEZ, ? Service: ? Author Type: Air Intelligence Officer Type: Progress Notes Filed: 06/09/2024 11:48 Note Text: Thaw for IUI Nichelle E Pauly [facility] 06-09-2024 History of Present illness Narrative Thaw for IUI Nichelle Colt Pauly documented in this encounter [facility] 06-09-2024 Note HNO ID: [id number] Author: NICHELLE GONZALEZ, ? Service: ? Author Type: Air Intelligence Officer Type: Progress Notes Filed: 06/09/2024 12:30 Note Text: IUI specimen released to provider Nichelle Gonzalez June 09, 2024 11:24 AM [facility] 05-09-2024 Instructions Shelly Hernandez APRN.POLICE BOOKING OFFICER - 05/09/2024 9:08 AM EST Images from the original note were not included. [facility]ODUCT[facility] ENDOCRINOLOGY AND INFERTILITY DONOR SPERM HANDOUT Donor Sperm Checklist: Complete Next Steps: Progesterone blood test 6-8 days after your LH surge - please let me know the test result when you get it. IUI Procedure consent form - sent to you via Loom today. Please sign when you can. Order sperm Financial Clearance - I sent your chart to the assistant front end manager today. Treatment plan: Natural cycle/IUI x 3 cycles. Please schedule a follow up visit with Dr. Guy if you are not after 3 cycles. Sperm Ordering Instructions We need 1 vial per cycle. You will likely need 3-6 vials to establish a . You are welcome to buy more than one and store with the [facility]. Mailing address: Attention: Nichelle Gonzalez [id number] [place] [address], [address] [place] [address] Storage at the [facility] is available. Fees are yearly and only start once you are not actively trying. Please ask the financial team ([phone]) for current cost information. Donor Insemination Scheduling Instructions Please call during the first business day of your menstrual cycle to let the assistant front end manager know you will be testing and doing [...] please call the office to discuss. Location [facility] [address], [address] [place] [address] Available every day, including weekends and holidays (except [place] and New Years.) Weekday IUI scheduling The day you get your LH surge, please call [phone] between 8:00am - 12:00pm to schedule your insemination for the next day. If you call after 12pm, we may not be able to schedule your appointment. IUI s are done by appointment only. You will make 2 appointments -an arrival time and a procedure time. [place]: [address], [address], [place] [address] Available every day, including weekends and holidays (except [place] and New Years.) Available for IUI using fresh and frozen samples. Check in location for sperm wash and IUI: [address]. The sperm wash takes 60-90 minutes. Weekend/Holiday [...] want to do another IUI: Call the assistant front end manager to make sure you are financially cleared. Ask to speak to an SKYLAR to confirm your treatment plan. Important phone number: [phone] documented in this encounter [facility] 05-09-2024 Note HNO ID: [id number] Author: SHELLY HERNANDEZ APRN.CNP Service: ? Author [...] visit. Either the patient or their legal retail service representative has been informed of the risks [...] them. No double whammies. 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 Standard se (more content not included)... [facility] 05-09-2024 History of Present illness Narrative [...] visit. Either the patient or their legal retail service representative has been informed of the risks and benefits of -- and alternatives to -- treatment through a remote evaluation and consents to proceed with the evaluation remotely. Reason for visit: donor sperm follow up MARCUS Sebatsian () and Sravan present for donor sperm [...] negative donor is a carrier of: CFTR, [id number] Vial types available: IUI and ART Considerations [...] which included preparing to see the patient, macg-sx-fsoi patient care, completing clinical documentation, obtaining and/or [...] missed in proofreading. documented in this encounter [facility] 05-02-2024 History of Present illness Narrative Psychosocial Consultation for Third Alliance Party Reproduction Virtual visit with audio and visual equipment POS 10 No SI, Falls, Tobacco use On May 02, 2024, I met virtually with Jaz and Sravan Lynda. They were referred by Shelly Hernandez at [facility] for their required psychosocial consultation regarding third constitution party reproduction. Relevant History Jaz, 29, and Demetrius, 26, have been together for 8.5 years and for 6.5 years. 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 Demetrius also works at that [employer]. The couple has been trying to conceive [...] who was able to adopt him. The Sanders's have already chosen a donor from [employer] in [place]. They chose this donor because he is [...] and the lack of anonymity in third constitution party reproduction. They are very comfortable with [...] the psychosocial issues inherent in this third constitution party reproductive option. documented in this encounter [facility] Work Phone: 03-11-2024 Note HNO ID: [id number] Author: SHELLY HERNANDEZ APRN.POLICE BOOKING OFFICER Service: ? Author Type: Nurse Practitioner Type: [...] visit. Either the patient or their legal retail service representative has been informed of the risks [...] Practice cycle Plan: Episode created.Reviewed checklist - Loom message sent Practice cycle: recommended OPKs to test for ovulation and timing of IUIs, patient to call with +OPK, confirm ovulation with progesterone level Follow up once checklist is complete to discuss test results and next steps. Shelly Hernandez, MELY.POLICE BOOKING OFFICER March 11, 2024 10:42 PM I spent a total of 55 minutes on the date of the service which included preparing to see the patient, xxji-ai-bkzi patient care, completing clinical documentation, obtaining and/or [...] grammatical and typographical errors missed in proofreading. [facility] 03-11-2024 History of Present illness Narrative [...] visit. Either the patient or their legal retail service representative has been informed of the risks and benefits of -- and alternatives to -- treatment through a remote evaluation and consents to proceed with the evaluation remotely. Reason for visit: procreative management, desire for donor sperm IUI HPI Melvin present to discuss donor sperm IUI. Treatment [...] Practice cycle Plan: Episode created.Reviewed checklist - Loom message sent Practice cycle: recommended OPKs to [...] which included preparing to see the patient, brov-pn-vigo patient care, completing clinical documentation, obtaining and/or [...] missed in proofreading. documented in this encounter [facility] 03-09-2024 Instructions Shelly Hernandez APRN.CNP [...] sensitive/urgent question, please call the office. ~Silvia MELY Hernandez.[facility] [phone] Donor Sperm Checklist Donor Sperm Labs Mandatory [...] Sravan must be present Amanda Gillespie MD ([place]) - [phone] Rani Sims (Filomena Hernandez) - [phone] - virtual visit Saúl Enriquez, - virtual [...] to date). Please get scheduled with your systems management consultant or pcp if needed. Practice with Ovulation Predictor Kit (OPK) First day of full flow is cycle day #1. Start using on ovulation predictor kit on cycle day 10. Use your OPK once a day, in the morning with your second urine of the day. Send in a Pro-Swift [employer]ure[employer] message when you get a positive OPK. [...] Once your checklist is complete, please call [phone] to get scheduled for a donor sperm follow up appointment. Sperm Bank Website [place] [facility] https://www.cryobank.com/ [employer] https://cryobio.com/ [employer] https://www.cryosinternational.co m/ [facility] https://Biomedical Innovation.Acqua Innovations/ [facility] https://www.Rerecipe.com/ [facility] [place] https://www.thespermbankofca.org/ [facility] https://www.Infermedica.Acqua Innovations/ [employer] https://www.INMANtex.com/ If you would like to start browsing [...] is needed. Test: CPT Code: Blood type 17126 HIV 46882 CMV IgG 31223 CMV IgM 27482 Syphilis 15447 Hepatitis B Surface Ag 56334 Hepatitis B Core Ab, IgG and IgM 78223 Hepatitis C Ab 48288 Rubella 37066 Varicella 73679 Chlamydia 68133 Gonorrhea 80022 For the above tests, reference the diagnosis code of Z11.9 documented in this encounter [facility] 02-28-2024 Plan of care note [...] for three cycles. They will meet with JOINTER MACHINE OPERATOR to review the IUI checklist and sign consents. I spent a total of 45 minutes on the date of the service which included preparing to see the patient, inlb-jf-eweo patient care, completing clinical documentation, counseling and educating the patient/family/caregiver, and ordering medications, tests, or procedures. Ignacio Guy MD [facility] 02-28-2024 Miscellaneous Notes Assessment- male [...] for three cycles. They will meet with JOINTER MACHINE OPERATOR to review the IUI checklist and sign consents. I spent a total of 45 minutes on the date of the service which included preparing to see the patient, lxkj-rq-gpnz patient care, completing clinical documentation, counseling and educating the patient/family/caregiver, and ordering medications, tests, or procedures. Ignacio Guy MD documented in this encounter [facility] 02-28-2024 Instructions Ignacio Guy MD - 02/28/2024 2:47 PM EST Dear Jaz Sanders Using donor sperm at the [facility] requires some set up (outlined below). Requirements to use donor sperm at the [facility]: Teaching with JAMEL SKYLAR - please call [phone] to schedule a donor sperm teach with [...] to help with the donor selection process. [employer] [facility] [facility] is the test ordered. Processing time takes 2-3 weeks. If your insurance doesn't cover it, the self-pay de oliveira is ~$250. Counselor You and your partner/spouse (if applicable) must see a counselor for a donor sperm assessment. Amanda Gillespie MD ([place]) - [phone] Rani Sims ([facility]) - [phone] Doris Lama ([place]) - [phone] Consent form - must be signed by [...] Required Tests Test: CPT Code: Blood type 31444 HIV 57063 CMV IgG 10456 CMV IgM 79039 Syphilis 73976 Hepatitis B Surface Ag 15376 Hepatitis B Core Ab, IgG and IgM 60015 Hepatitis C Ab 36759 Rubella 16957 Varicella 41323 Chlamydia 28561 Gonorrhea 67485 For the above tests, reference the diagnosis code of Z31.49. [employer] Screen - [employer] will check coverage for you. For this [...] your test results into consideration. [facility] [place] [facility] ([place]) [facility] [place] [facility] ([facility] [place]) [place] [facility] *Do not order any sperm until your checklist is complete. We will review ordering instructions at your follow up visit. Next Steps: Call insurance to verify coverage for donor sperm panel. Schedule donor sperm teach with my nurse practitioner, Silvia Hernandez. Ignacio Guy MD [phone] documented in this encounter [facility] 02-28-2024 Note HNO ID: [id number] Author: IGNACIO GUY MD Service: ? 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 They will meet with JOINTER MACHINE OPERATOR to review the IUI checklist and sign consents. I spent a total of 45 minutes on the date of the service which included preparing to see the patient, jvat-mz-mmxn patient care, completing clinical documentation, counseling and educating the patient/family/caregiver, and ordering medications, tests, or procedures. 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 They will meet with JOINTER MACHINE OPERATOR to review the IUI checklist and sign consents. I spent a total of 45 minutes on the date of the service which included preparing to see the patient, mmlw-dj-nxqs patient care, completing clinical documentation, counseling and educating the patient/family/caregiver, and ordering medications, tests, or procedures. Ignacio Guy MD documented in this encounter [facility] 02-27-2024 Evaluation note Diagnosis Onset Date Resolution Degenerative superior labral dvginblg-aq-dhehpflrd (SLAP) tear of right matthias acute Novembe [...] Novem wenceslao 2023 2:25pm Degenerative superior labral sninsxyt-ld-xjaslrmgi (SLAP) tear of right matthias acute April 23, 2024 2:29pm Laxity of ligament acute Aprua2024 2:29pm Multidirectional instability of glenohumeral joint acute April 23, 2024 2:29pm Other instability, right shoulder acute April 23 2:29pm Right carpal tunnel syndrome acute April 23 2:29pm Status post arthroscopy of right shoulder acute April 23, 2 025 2:29pm [facility] Work Phone: 1(242) 473-400311-11-2024 Evaluation note* Diagnosis Onset Date Resolution Status Admit Date Degenerative superior labral amxawbqy-uy-ajatsgiqg (SLAP) tear of right matthias acute February [...] Novem wenceslao 2023 2:25pm Degenerative superior labral rssvreqp-bo-uzhtkkziw (SLAP) tear of right matthias acute April [...] 8:29am Other chronic pain acute 2024 8:29am [facility] Work Phone: 1(112) 486-133511-04-2024 History of Present illness Narrative* Marsha Asif [...] nursing note reviewed. Exam conducted with a aircraft cleaning supervisor present. Vitals: Estimated body mass index is [...] Marsha Asif MA on behalf of: Jojo Ames, PAC documented in this [id number] Note [id number]09-03-2024 Evaluation note* Diagnosis Onset Date Resolution Status Admit Date Degenerative superior labral zjtgjiaf-ok-wxbsdyveq (SLAP) tear of right matthias acute December 20, 2023 10:11am Laxity of ligament acute Septem 2023 10:11am Multidirectional instability of glenohumeral joint acute December 20, 2023 10:11am Other instability, right shoulder acute December 19 10:11am Right carpal tunnel syndrome acute December 20, 2023 10:11am Status post arthroscopy of right shoulder acute December 19 10:11am Status post surgery noneactive Septe 2023 10:11am Degenerative superior labral raadvpyw-fb-edcuvsnpl (SLAP) tear of right matthias acute January 16 11:58am Laxity of ligament acute Octobe r 2023 11:58am Multidirectional instability of glenohumeral joint acute January 11:58am Other instability, right shoulder acute January 16 11:58am Right carpal tunnel syndrome acute January 17, 2024 11:58am Status post arthroscopy of right shoulder acute January 16 11:58am Status post surgery noneactive Octob 2023 11:58am Degenerative superior labral szwuabbn-mc-uxmvhnmyh (SLAP) tear of right matthias acute February [...] post surgery noneactive Novem wenceslao 2023 2:25pm [facility] Work Phone: 1(893) 646-378807-17-2024 [employer] Materials Orthopedics Musculoskeletal Pain Musculoskeletal pain [...] mouth or applied to the skin. Take lnxr-aui-dvqecvo and prescription medicines only as told by [...] provider. Document Revised: 08/07/2020 Document Reviewed: 07/16/2020 [employer] Patient Education ? 2022 [employer].[facility] CompanyMdraqqbh19-40-4313 Evaluation note* Encounter Date Diagnosis Assessment Notes Treatment Notes Treatment Clinical Notes Apr, Intertrigo (ICD-10 - L30.4) [facility] Other 01-30-2024 Evaluation note* Encounter Date Diagnosis [...] pain of right shoulder (ICD-10 - M25.511) [facility] Other 01-05-2024 Evaluation note* Encounter Date Diagnosis Assessment Notes Treatment Notes Treatment Clinical Notes Apr, Other iron deficiency anemia (ICD-10 - D50.8) [facility] Other 12-28-2023 Evaluation note* Encounter Date Diagnosis Assessment Notes Treatment Notes Treatment Clinical Notes Mar, Vitamin D deficiency (ICD-10 - E55.9) [facility] Other 10-23-2023 Evaluation note* Encounter Date Diagnosis [...] agreement for this and referral was given. [facility] Other 09-21-2023 Evaluation note* Encounter Date Diagnosis Assessment Notes Treatment Notes Treatment Clinical Notes Dec, Other iron deficiency anemia (ICD-10 - D50.8) Dec, Low folic acid (ICD-10 - E53.8) [facility] Other 09-11-2023 Evaluation note* Encounter Date Diagnosis [...] continue to do the exercises for strength. [facility] Other 07-06-2023 Evaluation note* Encounter Date Diagnosis Assessment Notes Treatment Notes Treatment Clinical Notes Oct, Iron deficiency (ICD-10 - E61.1) [facility] Other 06-26-2023 Evaluation note* Encounter Date Diagnosis [...] symptoms and causing pain down the arm. [facility] Other 06-15-2023 Evaluation note* Encounter Date Diagnosis [...] verbalizes understanding and agrees c tx plan. [facility] Other 05-10-2023 Evaluation note* Encounter Date Diagnosis [...] follow-up if no improvement. She verbalizes understnading. [facility] Other 05-05-2023 Evaluation note* Encounter Date Diagnosis Assessment Notes Treatment Notes Treatment Clinical Notes August, Acquired hypothyroidism (ICD-10 - E03.9) Discussed with pt symptoms and lab resutls. Discussed treatment and evaluation. Referral placed to Dr. Sinclair. 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 Patient has an appointment with her FIELD CARE ADVOCATE next week. Educated her to go to ED if she continues to have heavy bleeding with symptoms, she verbalized understanding. We will send patient home on iron supplements and docusate as needed for constipation Patient is being discharged today. Documented By: Farhad Gallego MD 06/11/22 1306 Signed By: <Electronically signed by Farhad Gallego MD> 06/11/22 1316 [facility] Work Phone: 1(983) 547-763102-23-2023 History and physical note Author Farhad Gallego [facility] June 10, 2022 6:28pm Note Date/Time June 10, 2022 5:39pm [facility] [address] [place] [address] Hospitalist H&P Signed Patient: Jaz Sanders MR#: [id number] : 1995 Acct:[id number] Age/Sex: 27 / F Adm Date: 3 Loc: 4N Room: 8J4446-6 Type: ADM INOo Attending Dr: Farhad Gallego MD Copies to: MD Amanda Correa, LABORATORY ANIMAL CARE VETERINARIAN, POLICE BOOKING OFFICER~ HPI DATE OF EXAMINATION: 06/10/22 CHIEF COMPLAINT: [...] % (Auto) 41.3 % (.) 06/10/22 14:51 [facility] [place] % (Auto) 6.8 % (.) 06/10/22 14:51 Eos % (Auto) 5.0 % (.) 06/10/22 14:51 Baso % (Auto) 1.8 % (.) 06/10/22 14:51 Nucleat RBC Rel Count 0.1 /100 WBC (0-0.5) 06/10/22 14:51 Neut # (Auto) 2.4 x10E3/uL (1.8-7.7) 06/10/22 14:51 Lymph # (Auto) 2.2 x10E3/uL (1.00-4.8) 06/10/22 14:51 [facility] # (Auto) 0.4 x10E3/uL (0.0-0.8) 06/10/22 14:51 [...] pH 5.5 (5.0-9.0) 06/10/22 15:40 Ur Specific [place] 1.010 (1.001-1.030) 06/10/22 15:40 Urine Protein Negative [...] code Documented By: Farhad Gallego MD 06/10/22 0915 Signed By: <Electronically signed by Farhad Gallego MD> 06/10/22 2503 [facility] Work Phone: 1(196) 323-779501-04-2023 Evaluation note* Encounter Date Diagnosis Assessment Notes [...] for bleeding. Keep appointment with Dr. Elder. [facility] Other 12-13-2022 Evaluation note* Encounter Date Diagnosis Assessment Notes Treatment Notes Treatment Clinical Notes Mar, Arthritis of shoulder (ICD-10 - M19.019) [facility] Other 12-06-2022 Evaluation note* Encounter Date Diagnosis [...] - F90.0) Referred back to Julieta Jefferson [facility] for recommendation for treatment due to she is currently treating her for anxiety and depression. And she has discussed this with Julieta and she had offered her treatement for this. [facility] Other 11-30-2022 Evaluation note* Encounter Date Diagnosis Assessment Notes Treatment Notes Treatment Clinical Notes Feb, Gastroesophageal ref lux disease without esophagitis (ICD-10 - K21.9) [facility] Other 10-24-2022 Evaluation note* Encounter Date Diagnosis [...] to trial the ointment. Follow-up as needed. [facility] Other 05-11-2022 NoteEchocardiology Procedure Exam Date/Time Accession # Ordering Dr. rAango Transthoracic 08/25/2021 15:36 EDT [id number] Jay DAVEY, Samir Rivera CPT code 47442 Reason for Exam (Echo Transthoracic Complete) Bradycardia;Other [...] Robin Salazar MD Transcribed by: kerry Technologist: [facility]04-21-2022 Note Echocardiology Procedure Exam Date/Time Accession # Ordering ECG Stress Exercise 08/06/2021 10:22 EDT [id number] Jya DAVEY, Samir Rivera CPT code 97122 Reason for Exam (ECG Stress Exercise) bradycardia;Other [...] Robin Salazar MD Transcribed by: nakul Technologist: [facility]03-31-2022 Evaluation note* Encounter Date Diagnosis Assessment Notes [...] school on two different occasions.Order faxed to [employer]. Jun, Gastroesophageal reflux disease without esophagitis (ICD-10 [...] Jun, Former smoker (ICD-1 0 - Z87.891) [facility] Other Evaluation + Plan note Future Appointments Appointment Date:08/06/2021 09:30:00 AM Scheduled [facility]: [facility] Type:CV Stress (FT) Appointment Date:08/06/2021 11:00:00 AM Scheduled Provider: [facility] Type:CV Holter/Event (FT) Future Scheduled Tests Radiology* Echo Transthoracic Complete 07/24/21 * ECG Stress Exercise [facility]06/21 [facility]ments Appointment Date:08/11/2021 10:30:00 AM Scheduled Provider:Samir Thompson MD [facility] Type:[facility]iology Follow [facility] (FT) [facility] Future Appointments Appointment Date:09/01/2021 02:30:00 PM Scheduled Provider:Samir Thompson MD Location:[facility] [place] Appointment Type:[facility]iology [facility] ([facility] Future Appointments Appointment Date:2022 11:15:00 AM Scheduled Provider:Samir Thompson MD [facility] Type:[facility]iology Follow Up (FT) [facility] noteNo InformationNort [employer] Other evaluation noteNo assessment information available [facility] Work Phone: evaluation note* Diagnosis Onset Date Resolution Status Anemia acute Anxiety and depression acute Bipolar disorder acute Iron deficiency anemia acute [facility] Work Phone: evaluation note* Diagnosis Onset Date Resolution Status Abdominal pain acute Chills acute Constipation acute Fever acute H/O gastric sleeve acute Vomiting acute [facility] Work Phone: evaluation note* Diagnosis Onset Date Resolution Status [id number] acute Laxity of ligament acute Multidirectional instability of glenohumeral joint acute Numbness of right hand acute Other instability, right shoulder acute [facility] Work Phone: evaluation note* Diagnosis Onset Date Resolution Status [id number] acute Laxity of ligament acute Multidirectional instability of glenohumeral joint acute Numbness of right hand acute Other instability, right shoulder acute [id number] acute Laxity of ligament acute Multidirectional instability of glenohumeral joint acute Numbness of right hand acute Other instability, right shoulder acute Right carpal tunnel syndrome acute [facility] Work Phone: evalukfbsn note* Diagnosis Onset Date Resolution Status [id number] acute Laxity of ligament acute Multidirectional instability of glenohumeral joint acute Numbness of right hand acute Other instability, right shoulder acute [id number] acute Laxity of ligament acute Multidirectional instability of glenohumeral joint acute Numbness of right hand acute Other instability, right shoulder acute Right carpal tunnel syndrome acute [id number] acute Laxity of ligament acute Multidirectional instability of glenohumeral joint acute Other instability, right shoulder acute Right carpal tunnel syndrome acute [facility] Work Phone: Evaluation note* Diagnosis Onset Date Resolution Status [id number] acute Laxity of ligament acute Multidirectional instability of glenohumeral joint acute Numbness of right hand acute Other instability, right shoulder acute [id number] acute Laxity of ligament acute Multidirectional instability of glenohumeral joint acute Numbness of right hand acute Other instability, right shoulder acute Right carpal tunnel syndrome acute [id number] acute Laxity of ligament acute Multidirectional instability of glenohumeral joint acute Other instability, right shoulder acute Right carpal tunnel syndrome acute [id number] acute Laxity of ligament acute Multidirectional instability of glenohumeral joint acute Other instability, right shoulder acute Right carpal tunnel syndrome acute Status post arthroscopy of right shoulder acute [facility] Work Phone: Evaluation note* Diagnosis Onset Date Resolution Status [id number] acute Laxity of ligament acute Multidirectional instability of glenohumeral joint acute Numbness of right hand acute Other instability, right shoulder acute Right carpal tunnel syndrome acute [id number] acute Laxity of ligament acute Multidirectional instability of glenohumeral joint acute Other instability, right shoulder acute Right carpal tunnel syndrome acute [id number] acute Laxity of ligament acute Multidirectional instability of glenohumeral joint acute Other instability, right shoulder acute Right carpal tunnel syndrome acute Status post arthroscopy of right shoulder acute Status post surgery noneacti ve [id number] acute Laxity of ligament acute Multidirectional instability of glenohumeral joint acute Other instability, right shoulder acute Right carpal tunnel syndrome acute Status post arthroscopy of right shoulder acute Status post surgery noneacti ve 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 Special screening examination for infectious diseases Screening examination for unspecified infectious disease Encounter for other genetic testing of female for procreative management documented in this encounter [facility] note* Diagnosis Bipolar 1 disorder (Multi)- Primary Infertility counseling documented in this encounter [facility] Work Phone: Evaluation note* Diagnosis Treatment plan provided- Primary documented in this encounter [facility] note* Diagnosis Reproductive mgmt, 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 documented in this encounter [facility] note* Diagnosis Procreative management- Primary Unspecified procreative management documented in this encounter [facility] note* Diagnosis Female infertility- Primary Female infertility of unspecified origin documented in this encounter [facility] note* Diagnosis Fertility testing- Primary Female infertility Female infertility of unspecified origin documented in this encounter [facility] note* Diagnosis Encounter for fertility planning [Z31.89]- Primary Other specified procreative management documented in this encounter [facility] note* Diagnosis Encounter for artificial insemination- Primary Artificial insemination documented in this encounter [facility] note* Diagnosis 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)- Primary documented in this encounter [facility] note* Diagnosis 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)- Primary documented in this encounter [facility] note* Diagnosis Abnormal thyroid function test- Primary Nonspecific abnormal results of thyroid function study 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 Vitamin D deficiency [facility] Diagnosis 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) [facility]* Diagnosis Early stage of (HCC) state, incidental documented in this encounter [facility] note* Diagnosis Amenorrhea Absence of menstruation 9 weeks gestation of Missed menses , unspecified gestational age Encounter for supervision of normal first in first trimester [facility] Diagnosis 13 weeks gestation of (HHS-HCC) Second trimester (HHS-HCC) state, incidental Thyroid disease Unspecified disorder of thyroid H/O gastric sleeve H/O iron deficiency anemia resulting from in vitro fertilization in first trimester ([facility]) documented in this encounter [facility]* Diagnosis Well woman exam with routine gynecological exam Routine gynecological examination Exposure to STD Second trimester ([facility]) state, incidental 18 weeks gestation of ([facility]) Need for maternal serum alpha-protein (MSAFP) screening ([facility]) Screening, , for anatomic survey ([facility]) Encounter for anatomic survey Thyroid disease Unspecified disorder of thyroid documented in this encounter [facility]* Diagnosis Previous gastric bypass affecting , antepartum- Primary Hypothyroidism affecting in second trimester 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 ([facility]) Obesity affecting in second trimester, unspecified obesity type Encounter for supervision of resulting from assisted reproductive technology, antepartum [facility] Diagnosis 20 weeks gestation of - Primary Previous gastric bypass affecting , antepartum Obesity affecting in second trimester, unspecified obesity type Hypothyroidism affecting in second trimester 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 ([facility]) headache in second trimester [facility]* Diagnosis 22 weeks gestation of ([facility]) Second trimester ([facility]) state, incidental Thyroid disease Unspecified disorder of thyroid H/O gastric sleeve H/O iron deficiency anemia Diabetes mellitus screening Screening for diabetes mellitus documented in this encounter [facility] HealthcareEvaluation note* Diagnosis Previous gastric bypass affecting , antepartum- Primary Hypothyroidism affecting in second trimester 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 ([facility]) Obesity affecting in second trimester, unspecified obesity type [facility] Narrative - Reported* Type Description Date Surgical History cholecystectomy 2014 Surgical History gastric sleeve 2020 [facility] Other History general Narrative - Reported* Type Description Date Medical History Hypothyroidism Medical History MNG Medical History enuresis Medical History extreme obesity Medical History GERD with esophagitis Medical History headache Medical History Goiter, nontoxic, multinodular Medical History Vitamin D deficiency Surgical History cholecystectomy 2014 Surgical History cholecystectomy 2015 Surgical History gastric sleeve 2020 Hospitalization History Anemia 05/2022 [facility] Other Hospital course Narrative No data available for this section [facility] No data available for this section [facility] Discharge instructions Additional Instructions POSTOPERATIVE INSTRUCTIONS FOR SHOULDER LABRAL REPAIR Romeo Santana DO Orthopedic Surgeon [facility] GENERAL INSTRUCTIONS: Use ice packs to [...] office immediately. Romeo Santana DO Orthopedic Surgeon [facility] Office: [facility] [place] [address] Office number: [phone] [facility] Work Phone: Hospital Discharge instructionsAmbulatory Orders* Referral to Allergy/Immunology Time Frame: 04/26/24, Location: None Selected [facility] Work Phone: Hospital Discharge instructions Additional Instructions We evaluated you for your vaginal bleeding in . Your ultrasound was normal, the baby has a good heart rate, measuring at 13 weeks and 1 day. Your cervix was closed. Follow-up closely with your FIELD CARE ADVOCATE. Return to the emergency department if you develop any worsening or concerning symptoms.[facility] Work Phone: InstructionsNot on filedocumented in this encounter [facility]InstructionsNot on filedocumented in this encounter [facility] System[facility]ructions* Attachments The following attachments cannot be sent through Care Everywhere. * Preeclampsia (Croatian) documented in this encounterProMedica Health SystemInstructionsNot on file documented in this encounterProMedica Health SystemInstructionsNot on file documented in this encounterProMedica Health SystemReason for referral (narrative)No reason for referral information availablePrem[facility] Work Phone: Reason for visit Narrative* Consult, Test, Treat (Routine) - Closed Specialty Diagnoses / Procedures Referred By Contact Referred To Contact [facility] Diagnoses Encounter for procreative management, unspecified Encounter for other procreative management Procedures ARTIFIC INSEMINATION INTRAUTERIN THAWING CRYOPRESERVED SPERM/SEMEN EACH ALIQUOT Daniel Hanna APRN.POLICE BOOKING OFFICER [address] [place] [address] Phone: tel: fax: [phone] Reproductive Endocrinology Infertility [address] [place] [id number] Phone: tel: Referral ID Status Reason Start Date Expiration Date V isits Requested Visits Authorized [id number] Closed Financial Clearance Required - Self Pay Patient Cleared - True Self-Pay required payment collected Do Not Bill Insurance - SP patient 05/17/2024 08/15/2024 2 2 [facility] for visit Narrative* Diagnostic Procedure Only (Routine) - Authorized Specialty Diagnoses / Procedures Referred By Contac t Referred To Contact [facility] Diagnoses Fertility testing Procedures PELVIC US WHI US PELVIC NONOBSTETRIC REAL-TIME IMAGE COMPLETE Ignacio Guy MD [address] [place] [address] Phone: tel: fax: [place] [phone] [place] [address] Referral ID Status Reason Start Date Expiration Date Visits Requested Visits Authorized [id number] Authorized Auto-Generate d Referral Patient Cleared - True Self-Pay required payment collected Do Not Bill Insurance - SP patient 06/09/2024 06/09/2025 2 2 [facility] for visit Narrative* Consult, Test, Treat (Routine) - Closed Specialty Diagnoses / Procedures Referred By Contact Referred To Contact [facility]OCRINOLOGY [facility] FERTILITY Diagnoses Encounter for procreative management, unspecified Encounter for other procreative management Procedures THAWING CRYOPRESERVED SPERM/SEMEN EACH ALIQUOT ARTIFIC INSEMINATION INTRAUTERIN Daniel Hanna APRN.POLICE BOOKING OFFICER [address] [place] [id number] Phone: tel:[phone] fax:[phone] Reproductive Endocrinology Infertility [address] [place] [id number] Phone: tel: Referral ID Status Reason Start Date Expiration Date V isits Requested Visits Authorized [id number] Closed Patient Cleared - True Self-Pay required payment collected Do Not Bill Insurance - SP patient 06/29/2024 09/27/2024 2 2 [facility] for visit Narrative* Financial Clearance (Routine) - Closed Specialty Diagnoses / Procedures Referred By Contac t Referred To Contact FINANCE Diagnoses Collect for IUI-D washed sample Procedures THAWING CRYOPRESERVED SPERM/SEMEN EACH ALIQUOT ARTIFIC INSEMINATION INTRAUTERIN FINANCIAL CLEARANCE PHONE CALL Self Financial Clearance Phone Screening [place] [address] Referral ID Status Reason Start Date Expiration Date V isits Requested Visits Authorized [id number] Closed Financial Clearance Required - Self Pay Patient Cleared - True Self-Pay required payment collected Do Not Bill Insurance - SP patient 07/25/2024 09/23/2024 2 2 [facility] for visit Narrative* Diagnostic Procedure Only (Routine) - Closed Specialty Diagnoses / Procedures Referred By Saud tavera Referred To Contact [facility] Diagnoses 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) Procedures OBSTETRIC ULTRASOUND WHI US PREG UTERUS AFTER 1ST TRIMEST 1/ GESTATION Shelly Hernandez APRN.POLICE BOOKING OFFICER [address] [place] [id number] Phone: tel: fax: [place] [phone] Referral ID Status Reason Start Date Expiration Date V isits Requested Visits Authorized [id number] Closed Auto-Generate d Referral 08/20/2024 08/20/2025 1 1 [facility] for visit Narrative* Diagnostic Procedure Only (Routine) - Closed Specialty Diagnoses / Procedures [facility] Referred To Contact [facility] Diagnoses Early stage of (HCC) Procedures OBSTETRIC ULTRASOUND WHI US PREG UTERUS AFTER 1ST TRIMEST 1/ GESTATION Shelly Hernandez, LABORATORY ANIMAL CARE VETERINARIAN.POLICE BOOKING OFFICER [address] [place] [id number] Phone: tel: fax: [place] [phone] Referral ID Status Reason Start Date Expiration Date V isits Requested Visits Authorized [id number] Closed Auto-Generate d Referral 09/03/2024 04/17/2025 1 1 [facility] Advance Directives No Advanced Directives Records FoundDocuments on File Type Date Recorded Patient Shop Tech Expl anation ACP-Advance Directive ACP-Power of Street Light Servicer Supervisor Documents on File Type Date Recorded Patient Shop Tech Expl anation ACP-Advance Directive ACP-Power of Street Light Servicer Supervisor Latest Code Status on File Code Status Date Activated Date Inactivated Comments Full Code 05/06/2020 4:42 PM Advance Directive Response Recorded Date/ Time Advance Directives No March 3:24pm Advance Directive Response Recorded Date/ Time Advance Directives No March 4:24pm Advance Directive Response Recorded Date/ Time Advance Directives No November 08 11:27am Discharge Instructions * Instructions* Kunal Newman, MELVI - 04/22/2020 Preoperative Instructions: Stop drinking clear [...] drive you home after your procedure. Your tractor driver teamster must be 18 years of age or [...] questions, call the Pre-Admission Testing Unit at [phone]. Day of Surgery/Procedure As a patient at [facility] you can expect quality medical and nursing care that is centered on your individual needs. Our goal is to make your surgical experience as comfortableas possible . Directions to the Surgery Center [facility] is located at [address] [place] [address]. Please pull into the Emergency parking lot and stop at the automobile or truck rental dispatcher dotson. We offer free automobile or truck rental dispatcher service for all our surgery patients, if you choose not to have automobile or truck rental dispatcher parking we have additional parking across the street.You will enter the facility following the [facility] sign. Please stop at the spa receptionist desk where you will be checked in by the staff. If you have any questions please call [phone]. Transportation after your procedure. You will need a friend or family member to drive you home after your procedure. Your tractor driver teamster must be18 years of age or older [...] may shave your face or neck. ? [place] your teeth but do not swallow water. [...] or the day of surgery, please call [phone], or [phone] documented in this encounter* Instructions* Mukesh Montez, [...] 48 hours call the anesthesia department at [phone]. Will you need pain medication? The nerve [...] block please phone the Anesthesiology Department at [phone]. If the phone does not get answered please contact the hospital dowel inserting machine operator at [phone] to page the rayon tester anesthesiologist Discharge Instructions for Bariatric Surgery You had a Laparoscopic Sleeve Gastrectomy (95389) surgery to treat obesity. Recovery from this [...] scheduled appointment, please call the office at [phone]. Call Your Doctor If Any of the [...] AM EST CLINICAL PHARMACY NOTE: MEDS TO [facility] Select Patient?: No Total # of Prescriptions Filled: 3 The following medications were delivered to the patient: Oxycodone-acetaminophen 5/325 mg tab Cyclobenzaprine 10 mg tab Enoxaparin 60mg /0.6 ml syr Total # of Interventions Completed: 1 Time Spent (min): 60 Additional Documentation:called ed case manager about the high co-pay on the enoxaparin and they sent a voucher for it! We delivered medications to the patient in her room (246) 05/08 @11:15 am . * Mukesh Montez DO - 05/07/2020 6:23 AM EST General Surgery: Daily Progress Note PATIENT NAME: Jza Sanders TODAY'S DATE: 05/07/2020, 6:23 AM SUBJECTIVE: [...] SHOULDER DI SCUSS SURGERY Reason for Visit [id number] Laxity of ligament Multidirectional instability of glenohumeral joint Numbness of right hand Other instability, right shoulder Chief Complaint OP SP RT SHOULDER DI SCUSS SURGERY R20.0 Reason for Visit [id number] Laxity of ligament Multidirectional instability of glenohumeral joint Numbness of right hand Other instability, right shoulder Chief Complaint OP SP RT SHOULDER DI SCUSS SURGERY R20.0 EMG RESULTS Reason for Visit [id number] Laxity of ligament Multidirectional instability of glenohumeral joint Numbness of right hand Other instability, right shoulder [id number] Laxity of ligament Multidirectional instability of glenohumeral joint Numbness of right hand Other instability, right shoulder Right carpal tunnel syndrome Chief Complaint OP SP RT SHOULDER DI SCUSS SURGERY R20.0 EMG RESULTS Shoulder pain Reason for Visit [id number] Laxity of ligament Multidirectional instability of glenohumeral joint Numbness of right hand Other instability, right shoulder [id number] Laxity of ligament Multidirectional instability of glenohumeral joint Numbness of right hand Other instability, right shoulder Right carpal tunnel syndrome Chief Complaint OP SP RT SHOULDER DI SCUSS SURGERY R20.0 EMG RESULTS Shoulder pain H & P RIGHT SHOULDER ARTHROSCOPY 12-07-23 Reason for Visit [id number] Laxity of ligament Multidirectional instability of glenohumeral joint Numbness of right hand Other instability, right shoulder [id number] Laxity of ligament Multidirectional instability of glenohumeral joint Numbness of right hand Other instability, right shoulder Right carpal tunnel syndrome [id number] Laxity of ligament Multidirectional instability of glenohumeral joint Other instability, right shoulder Right carpal tunnel syndrome Chief Complaint OP SP RT SHOULDER DI SCUSS SURGERY R20.0 EMG RESULTS Shoulder pain H & P RIGHT SHOULDER ARTHROSCOPY 12-07-23 Shoulder pain Shoulder pain Reason for Visit [id number] Laxity of ligament Multidirectional instability of glenohumeral joint Numbness of right hand Other instability, right shoulder [id number] Laxity of ligament Multidirectional instability of glenohumeral joint Numbness of right hand Other instability, right shoulder Right carpal tunnel syndrome [id number] Laxity of ligament Multidirectional instability of glenohumeral joint Other instability, right shoulder Right carpal tunnel syndrome Chief Complaint OP SP RT SHOULDER DI SCUSS SURGERY R20.0 EMG RESULTS Shoulder pain H & P RIGHT SHOULDER ARTHROSCOPY 12-07-23 Shoulder pain Shoulder pain 10-14 DAYS POST OP Reason for Visit [id number] Laxity of ligament Multidirectional instability of glenohumeral joint Numbness of right hand Other instability, right shoulder [id number] Laxity of ligament Multidirectional instability of glenohumeral joint Numbness of right hand Other instability, right shoulder Right carpal tunnel syndrome [id number] Laxity of ligament Multidirectional instability of glenohumeral joint Other instability, right shoulder Right carpal tunnel syndrome [id number] Laxity of ligament Multidirectional instability of glenohumeral joint Other instability, right shoulder Right carpal tunnel syndrome Status post arthroscopy of right shoulder Chief Complaint R20.0 EMG RESULTS Shoulder pain H & P RIGHT SHOULDER ARTHROSCOPY 12-07-23 Shoulder pain Shoulder pain 10-14 DAYS POST OP R20.0 4 WEEKS Reason for Visit [id number] Laxity of ligament Multidirectional instability of glenohumeral joint Numbness of right hand Other instability, right shoulder Right carpal tunnel syndrome [id number] Laxity of ligament Multidirectional instability of glenohumeral joint Other instability, right shoulder Right carpal tunnel syndrome [id number] Laxity of ligament Multidirectional instability of glenohumeral joint Other instability, right shoulder Right carpal tunnel syndrome Status post arthroscopy of right shoulder Status post surgery [id number] Laxity of ligament Multidirectional instability of glenohumeral [...] for Visit Admit Date 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 December 20, 2023 10:11am Laxity of ligament December 20, 2023 10:11am Multidirectional instability of glenohum eral joint December 20, 2023 10:11am Other instability, right shoulder Septem 2023 10:11am Right carpal tunnel syndrome December 192023 10:11am Status post arthroscopy of right shoulde r December 20, 2023 10:11am Status post surgery December 20, 2023 10:11am Degenerative superior labral tbrhdrmj-gh-akjlmjnnl (SLAP) tear of right matthias January 17, 2024 11:58am Laxity of ligament January 17, 2024 11 :58am Multidirectional instability of glenohum eral joint January 17, 2024 11:58am Other instability, right shoulder Octobe 2023 11:58am Right carpal tunnel syndrome January 11:58am Status post arthroscopy of right shoulde r January 17, 2024 11:58am Status post surgery January 17, 2024 11 :58am Degenerative superior labral vbnnktim-ac-qwxmefdbp (SLAP) tear of right matthias February 27, [...] for Visit Admit Date Degenerative superior labral eerlnwqh-yc-iajwocaeo (SLAP) tear of right matthias February 27, 2024 2:25pm Laxity of ligament February 27, 2024 2:25pm Multidirectional instability of glenohum eral joint February 27, 2024 2:25pm Other instability, right shoulder Novemb er 2023 2:25pm Right carpal tunnel syndrome February 262023 2:25pm Status post arthroscopy of right shoulde r February 27, 2024 2:25pm Status post surgery February 27, 2024 2:25pm Degenerative superior labral noamvtga-nh-acyfzmnnz (SLAP) tear of right matthias April 23, [...] for Visit Admit Date Degenerative superior labral rvzmflap-hd-ojobsgdep (SLAP) tear of right matthias February 27, 2024 2:25pm Laxity of ligament February 27, 2024 2:25pm Multidirectional instability of glenohum eral joint February 27, 2024 2:25pm Other instability, right shoulder Novemb er 2023 2:25pm Right carpal tunnel syndrome February 262023 2:25pm Status post arthroscopy of right shoulde r February 27, 2024 2:25pm Status post surgery February 27, 2024 2:25pm Degenerative superior labral sbuwlqhc-cr-qapbjzgdg (SLAP) tear of right matthias April 23, [...] therapy exercises and steroid injection, MRI at [facility], Dr. 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) Referral Organization [facility] [place] Referring Provider First Name Amanda Referring Provider Last Name Logan Referring Provider Specialty Nurse Destiney hall Referred Organization [facility] Referred Provider Darleen Sinclair Referred Address [address] [facility],[place], [place],[address] Referred Provider Specialty Endocrinolog y Referral Priority Routine General Notes Chelsi Avalos 023 11:26:34 AM >Received today and waiting for office notes to be locked before sending referral Additional Source Comments Reason for Visit (unrecogniz ed section and content) Status Reason Specialty Diagnoses / Procedures Referre d By Contact Referred To Contact Diagnoses Morbid obesity (HCC) MORBID OBESITY, HYPOTHYROID Procedures AL LAP GASTRIC BYPASS/BEN-EN-Y XI LAPAROSCOPIC ROBOTIC GASTRIC BYPASS BEN-EN-Y, LIVER BIOPSY, EGD- GI UNIT SCHEDULED. Rashard Olivera DO [address] [facility] [address] [place] [address] [facility] Reason Comments Gynecologic Exam Reason Comments Infertility Specialty Diagnoses / Procedures Referred By Contsari t Referred To Contact [facility] Diagnoses Female infertility, unspecified Procedures VV OFFICE/OP CONSLTJ NEW/EST PT MOD MDM 40 MINUTES Pcp, No, LABORATORY ANIMAL CARE VETERINARIAN Whi Jamel [facility] [address] [place] [address] Referral ID Status Reason Start Date Expiration Date V isits Requested Visits Authorized [id number] Closed Financial Clearance Required - Self Pay Patient Cleared - True Self-Pay required payment collected Do Not Bill Insurance - SP patient Financial Clearance Not Required 12/30/2023 02/28/2024 1 1 Reason Comments donor sperm teach Specialty Diagnoses / Procedures Referred By Contac t Referred To Contact [facility] Diagnoses Infertility counseling Procedures OFFICE/OUTPATIENT ESTABLISHED MOD MDM 30 MIN Shelly Hernandez APRN.POLICE BOOKING OFFICER [address] [facility] [address] [place] [address] [facility] [address] [place] [address] Referral ID Status Reason Start Date Expiration Date V isits Requested Visits Authorized [id number] Closed Financial Clearance Required - Self Pay Patient Cleared - True Self-Pay required payment collected Do Not Bill Insurance - SP patient 02/28/2024 05/28/2024 1 1 Specialty Diagnoses / Procedures Referred By Saud t Referred To Contact [facility] Diagnoses Encounter for fertility testing Procedures OFFICE/OUTPATIENT ESTABLISHED LOW MDM 20 MIN [facility] [address] [place] [address] Whi Jamel [facility] [address] [place] [address] Referral ID Status Reason Start Date Expiration Date V isits Requested Visits Authorized [id number] Closed Financial Clearance Required - Self Pay [...] section and content) DATE CREATED AUTHOR 05/08/[address] [facility] DATE CREATED AUTHOR AUTHOR'S ORGANIZ ATION 03/31/2021 [facility] DATE CREATED AUTHOR AUTHOR'S ORGANIZ ATION 09/04/2021 [facility] DATE CREATED AUTHOR AUTHOR'S ORGANIZ ATION 04/19/2024 [facility] DATE CREATED AUTHOR AUTHOR'S ORGANIZ ATION 05/05/2024 [facility] DATE CREATED AUTHOR AUTHOR'S ORGANIZ ATION 09/12/2024 [facility] DATE CREATED AUTHOR AUTHOR'S ORGANIZ ATION 10/05/2024 [facility] DATE CREATED AUTHOR AUTHOR'S ORGANIZ ATION 12/07/2024 [facility] DATE CREATED AUTHOR AUTHOR'S ORGANIZ ATION 12/07/2024 [facility] DATE CREATED AUTHOR AUTHOR'S ORGANIZ ATION 12/20/2024 [facility] d[facility] Specialists [facility] DATE CREATED AUTHOR AUTHOR'S ORGANIZ ATION 01/05/2025 [facility] Care Teams (unrecognized sec tion and content) Team Status: Inactive Member Role Status Dates Robin Appiah MD Primary Care Provider Active Amanda Ford APRN JOINTER MACHINE OPERATOR-Rudi Attending Provider Act misti Team Status: Inactive Member Role Status Dates Amanda Ford APRN JOINTER MACHINE OPERATOR-C Primary Care Provider Active Jean Jett PA-C Emergency Provider Active Team Status: Inactive Member Role Status Dates Amanda Ford APRN JOINTER MACHINE OPERATOR-C Primary Care Provider Active Jack Easton DO Emergency Provider Active Team Status: Active Member Role Status Dates Amanda Ford APRN JOINTER MACHINE OPERATOR-C Primary Care Provider Active Team Status: Inactive Member Role Status Dates Amanda Ford APRN JOINTER MACHINE OPERATOR-C Primary Care Provider, Attending Provider Active Team Status: Active Member Role Status Dates Amanda Ford APRN JOINTER MACHINE OPERATOR-C Primary Care Provider Active Jean Jett PA-C Emergency Provider Active Farhad Gallego MD Admit Provider, Attending Provider A ctive Team Status: Inactive Member Role Status Dates Amanda Ford APRN JOINTER MACHINE OPERATOR-C Primary Care Provider Active Jean Jett PA-C Emergency Provider Active Farhad Gallego MD Admit Provider, Attending Provider A ctive Team Status: Inactive Member Role Status Dates Amanda Ford APRN JOINTER MACHINE OPERATOR-C Primary Care Provider Active ANDREW GrecoC Attending Provider Active Team Status: Inactive Member Role Status Dates Provider Conversion Attending Provider Active St art: May 17, 2023 End: May 17, 2023 Team Status: Inactive Member Role Status Dates Amanda Ford APRN JOINTER MACHINE OPERATOR-C Primary Care Provider, Attending Provider Active Start: June 08, 2023 End: June 08, 2023 Team Status: Active Member Role Status Dates Amanda Ford APRN JOINTER MACHINE OPERATOR-C Primary Care Provider, Attending Provider Active Start: September 15, 2023 Team Status: Inactive Member Role Status Dates Amanda Ford APRN JOINTER MACHINE OPERATOR-C Primary Care Provider Active Start: October 13, 2023 End: October 13, 2023 Romeo Santana DO Attending Provider Active St art: October 13, 2023 End: October 13, 2023 Team Status: Inactive Member Role Status Dates Amanda Ford APRN JOINTER MACHINE OPERATOR-C Primary Care Provider Active Start: October 26, 2023 End: October 26, 2023 Romeo Santana DO Attending Provider Active St art: October 26, 2023 End: October 26, 2023 Team Status: Inactive Member Role Status Dates Amanda Ford APRN JOINTER MACHINE OPERATOR-C Primary Care Provider Active Start: November 01, 2023 End: November 01, 2023 Romeo Santana , Attending Provider Active St art: November 01, 2023 End: November 01, 2023 Team Status: Inactive Member Role Status Dates Amanda Ford APRN JOINTER MACHINE OPERATOR-C Primary Care Provider Active Start: November 28, 2023 End: November 28, 2023 Romeo Santana , Attending Provider Active St art: November 28, 2023 End: November 28, 2023 Team Status: Inactive Member Role Status Dates Amanda Ford APRN JOINTER MACHINE OPERATOR-C Primary Care Provider Active Start: December 01, 2023 End: December 01, 2023 Romeo Santana , Attending Provider Active St art: December 01, 2023 End: December 01, 2023 Team Status: Inactive Member Role Status Dates Amanda Ford APRN JOINTER MACHINE OPERATOR-C Primary Care Provider Active Start: December 07, 2023 End: December 07, 2023 Romeo Santana DO Attending Provider Active St art: December 07, 2023 End: December 07, 2023 Team Status: Active Member Role Status Dates Amanda Ford APRN JOINTER MACHINE OPERATOR-C Primary Care Provider Active Start: November Romeo Santana DO Attending Provider, Other Provider Active Start: December 07, 2023 Team Status: Inactive Member Role Status Dates Amanda Ford APRN JOINTER MACHINE OPERATOR-C Primary Care Provider Active Start: December 192023 End: December 20, 2023 Romeo Santana DO Attending Provider Active St art: December 20, 2023 End: December 20, 2023 Team Status: Active Member Role Status Dates Amanda Ford APRN JOINTER MACHINE OPERATOR-C Primary Care Provider Active Start: December 182023 Romeo Santana DO Other Provider Active Start: January 10, 2024 Daniel Hampton MD Attending Provider Active Start: January 10, 2024 Team Status: Inactive Member Role Status Dates Amanda Ford APRN JOINTER MACHINE OPERATOR-C Primary Care Provider Active Start: January 17, 2024 End: January 17, 2024 Romeo Santana DO Attending Provider Active St art: January 17, 2024 End: January 17, 2024 Sandwich Wrapper Relationship Specialty Start Date End Date Amanda Ford NP [address] [facility] [place] [address] PCP - General Family Medicine 01/17/23 Sandwich Wrapper Relationship Specialty Start Date End Date Amanda Ford NP [address] [facility] [place] [address] PCP - General Family Medicine 01/17/23 Team Status: Inactive Member Role Status Dates Amanda Ford APRN JOINTER MACHINE OPERATOR-C Primary Care Provider Active Start: February 262023 End: February 27, 2024 Romeo Santana DO Attending Provider Active St art: February 27, 2024 End: February 27, 2024 Sandwich Wrapper Relationship Specialty Start Date End Date Amanda Ford NP PCP - General Family Medicine 01/17/23 Team Status: Active Member Role Status Dates Amanda Ford APRN JOINTER MACHINE OPERATOR-C Primary Care Provider Active Start: February Les Martinez DO Attending Provider Active Start : February 20, 2024 Team Status: Inactive Member Role Status Dates Amanda Ford APRN JOINTER MACHINE OPERATOR-C Primary Care Provider Active Start: April 23, 2024 End: April 23, 2024 Romeo Santana DO Attending Provider Active St art: April 23, 2024 End: April 23, 2024 Team Status: Inactive Member Role Status Dates Amanda Ford APRN JOINTER MACHINE OPERATOR-C Primary Care Provider, Attending Provider Active Start: April 26, 2024 End: April 26, 2024 Sandwich Wrapper Relationship Specialty Start Date End Date Amanda Ford NP [address] [facility] [place] [address] PCP - General Family Medicine 01/17/23 Sandwich Wrapper Relationship Specialty Start Date End Date Amanda Ford NP [address] [facility] [place] [address] PCP - General Family Medicine 01/17/23 Sandwich Wrapper Relationship Specialty Start Date End Date Amanda Ford NP [address] [place], [place] [address], [place] [address] PCP - General Family Medicine 01/17/23 Sandwich Wrapper Relationship Specialty Start Date End Date Amanda Ford NP [address] [place] [address] PCP - General Family Medicine 01/17/23 Team Status: Inactive Member Role Status Dates Amanda Ford APRN JOINTER MACHINE OPERATOR-C Primary Care Provider Active Start: October 18, 2024 End: October 18, 2024 Kassidy Arriaza DO Emergency Provider Active Start: October 18, 2024 End: October 18, 2024 Sandwich Wrapper Relationship Specialty Start Date End Date Amanda Ford NP [address] [place], [place] [address], [place] [address] PCP - General Family Medicine 01/17/23 Sandwich Wrapper Relationship Specialty Start Date End Date No Pcp, [place] [address] PCP - General Family Medicine 05/20/20 Sandwich Wrapper Relationship Specialty Start Date End Date No Pcp, [place] [address] PCP - General Family Medicine 05/20/20 Sandwich Wrapper Relationship Specialty Start Date End Date Amanda Ford NP [address] [place] [address] [place] [address] PCP - General Family Medicine 01/17/23 Sandwich Wrapper Relationship Specialty Start Date End Date Amanda Ford NP [address] [place] [address] [place] [address] PCP - General Family Medicine 01/17/23 Sandwich Wrapper Relationship Specialty Start Date End Date Amanda Ford NP [address] [place] [address] PCP - General Family Medicine 01/17/23 Team Status: Active Member Role Status Dates Amanda Ford APRN JOINTER MACHINE OPERATOR-C Primary Care Provider Active Start: November 17, 2024 Chris Dickerson DO Attending Provider Active S tart: November 17, 2024 Team Status: Active Member Role Status Dates Amanda Ford APRN JOINTER MACHINE OPERATOR-C Primary Care Provider Active Start: November 20, 2024 Les Martinez DO Attending Provider Active Start : November 20, 2024 Team Status: Active Member Role Status Dates Amanda Ford APRN JOINTER MACHINE OPERATOR-C Primary Care Provider Active Start: November 30, 2024 Chris Dickerson DO Attending Provider Active S tart: November 30, 2024 Team Status: Inactive Member Role Status Dates Chris Dickerson DO Attending Provider Active S tart: November 30, 2024 End: November 30, 2024 Team Status: Active Member Role Status Dates SHARRON Zhou Attending Provider Active S tart: December 01, 2024 Team Status: Inactive Member Role Status Dates Amanda Ford APRN JOINTER MACHINE OPERATOR-C Primary Care Provider Active Start: December 02, 2024 End: December 03, 2024 Eduardo Cruz DO Attending Provider Active Sta rt: December 02, 2024 End: December 03, 2024 Sandwich Wrapper Relationship Specialty Start Date End Date No Pcp, [place] [address] PCP - General Family Medicine 05/20/20 Sandwich Wrapper Relationship Specialty Start Date End Date No Pcp, [place] [address] PCP - General Family Medicine 05/20/20 Sandwich Wrapper Relationship Specialty Start Date End Date Amanda Ford NP [address] [place] [address] [place] [address] PCP - General Family Medicine 01/17/23 Sandwich Wrapper Relationship Specialty Start Date End Date No Pcp, [place] [address] PCP - General Family Medicine 05/20/20 Sandwich Wrapper Relationship Specialty Start Date End Date No Pcp, [place] [address] PCP - General Family Medicine 05/20/20 Goals [...] or prosecute any alcohol or drug abuse patient.[facility] Center[facility] the event this information is protected by the Federal Confidentiality of Alcohol and Drug Abuse Patient Records regulations: The Federal rules restrict any use of the information to criminally investigate or prosecute any alcohol or drug abuse patient.[facility] Center[facility] the event this information is protected by the Federal Confidentiality of Alcohol and Drug Abuse Patient Records regulations: The Federal rules restrict any use of the information to criminally investigate or prosecute any alcohol or drug abuse patient.[facility] the event this information is protected by the Federal Confidentiality of Alcohol and Drug Abuse Patient Records regulations: The Federal rules restrict any use of the information to criminally investigate or prosecute any alcohol or drug abuse patient.[facility] CenterIn the event this information is protected by the Federal Confidentiality of Alcohol and Drug Abuse Patient Records regulations: The Federal rules restrict any use of the information to criminally investigate or prosecute any alcohol or drug abuse patient.[facility] CenterIn the event this information is protected by the Federal Confidentiality of Alcohol and Drug Abuse Patient Records regulations: The Federal rules restrict any use of the information to criminally investigate or prosecute any alcohol or drug abuse patient.[facility] CenterIn the event this information is protected by the Federal Confidentiality of Alcohol and Drug Abuse Patient Records regulations: The Federal rules restrict any use of the information to criminally investigate or prosecute any alcohol or drug abuse patient.[facility] CenterIn the event this information is protected by the Federal Confidentiality of Alcohol and Drug Abuse Patient Records regulations: The Federal rules restrict any use of the information to criminally investigate or prosecute any alcohol or drug abuse patient.[facility] CenterIn the event this information is protected by the Federal Confidentiality of Alcohol and Drug Abuse Patient Records regulations: The Federal rules restrict any use of the information to criminally investigate or prosecute any alcohol or drug abuse patient.[facility] CenterIn the event this information is protected by the Federal Confidentiality of Alcohol and Drug Abuse Patient Records regulations: The Federal rules restrict any use of the information to criminally investigate or prosecute any alcohol or drug abuse patient.[facility] CenterIn the event this information is protected by the Federal Confidentiality of Alcohol and Drug Abuse Patient Records regulations: The Federal rules restrict any use of the information to criminally investigate or prosecute any alcohol or drug abuse patient.[facility] CenterIn the event this information is protected by the Federal Confidentiality of Alcohol and Drug Abuse Patient Records regulations: The Federal rules restrict any use of the information to criminally investigate or prosecute any alcohol or drug abuse patient.[facility] CenterIn the event this information is protected by the Federal Confidentiality of Alcohol and Drug Abuse Patient Records regulations: The Federal rules restrict any use of the information to criminally investigate or prosecute any alcohol or drug abuse patient.[facility] CenterIn the event this information is protected by the Federal Confidentiality of Alcohol and Drug Abuse Patient Records regulations: The Federal rules restrict any use of the information to criminally investigate or prosecute any alcohol or drug abuse patient.[facility] CenterIn the event this information is protected by the Federal Confidentiality of Alcohol and Drug Abuse Patient Records regulations: The Federal rules restrict any use of the information to criminally investigate or prosecute any alcohol or drug abuse patient.[facility] CenterIn the event this information is protected by the Federal Confidentiality of Alcohol and Drug Abuse Patient Records regulations: The Federal rules restrict any use of the information to criminally investigate or prosecute any alcohol or drug abuse patient.[facility] CenterIn the event this information is protected by the Federal Confidentiality of Alcohol and Drug Abuse Patient Records regulations: The Federal rules restrict any use of the information to criminally investigate or prosecute any alcohol or drug abuse patient.[facility] CenterIn the event this information is protected by the Federal Confidentiality of Alcohol and Drug Abuse Patient Records regulations: The Federal rules restrict any use of the information to criminally investigate or prosecute any alcohol or drug abuse patient.[facility] CenterIn the event this information is protected by the Federal Confidentiality of Alcohol and Drug Abuse Patient Records regulations: The Federal rules restrict any use of the information to criminally investigate or prosecute any alcohol or drug abuse patient.[facility] CenterIn the event this information is protected by the Federal Confidentiality of Alcohol and Drug Abuse Patient Records regulations: The Federal rules restrict any use of the information to criminally investigate or prosecute any alcohol or drug abuse patient.[facility] CenterIn the event this information is protected by the Federal Confidentiality of Alcohol and Drug Abuse Patient Records regulations: The Federal rules restrict any use of the information to criminally investigate or prosecute any alcohol or drug abuse patient.[facility] CenterIn the event this information is protected by the Federal Confidentiality of Alcohol and Drug Abuse Patient Records regulations: The Federal rules restrict any use of the information to criminally investigate or prosecute any alcohol or drug abuse patient.[facility] CenterIn the event this information is protected by the Federal Confidentiality of Alcohol and Drug Abuse Patient Records regulations: The Federal rules restrict any use of the information to criminally investigate or prosecute any alcohol or drug abuse patient.[facility] CenterIn the event this information is protected by the Federal Confidentiality of Alcohol and Drug Abuse Patient Records regulations: The Federal rules restrict any use of the information to criminally investigate or prosecute any alcohol or drug abuse patient.[facility] CenterIn the event this information is protected by the Federal Confidentiality of Alcohol and Drug Abuse Patient Records regulations: The Federal rules restrict any use of the information to criminally investigate or prosecute any alcohol or drug abuse patient.[facility] CenterIn the event this information is protected by the Federal Confidentiality of Alcohol and Drug Abuse Patient Records regulations: The Federal rules restrict any use of the information to criminally investigate or prosecute any alcohol or drug abuse patient.[facility] CenterIn the event this information is protected by the Federal Confidentiality of Alcohol and Drug Abuse Patient Records regulations: The Federal rules restrict any use of the information to criminally investigate or prosecute any alcohol or drug abuse patient.[facility] FOR RECORDS PERTAINING TO PATIENTS [...] BE BASED ON THE PRIMARY CLINICAL RECORDS. [facility] [employer] [facility] provides no warranty or guarantee of the accuracy or completeness of information in this document.
[2025-01-09 12:25] LABS: Hematocrit 35.6 % (36.0-48.0); Hemoglobin 12.0 g/dL (12.0-16.0); Immature Granulocytes Abs Auto 0.10 10^3/uL (0.00-0.03); Immature Granulocytes Pct Auto 0.8 % (0.0-0.5); Lymphocytes Absolute Auto 2.3 10^3/uL (1.2-3.8); Mean Corpuscular HGB Conc 33.7 g/dL (29.9-35.2); Mean Corpuscular Hemoglobin 29.6 pg (26.7-34.0); Mean Corpuscular Volume 87.7 fL (81.0-99.0); Platelet Count 187 10^3/uL (150-450); Red Blood Count 4.06 10^6/uL (4.20-5.40); White Blood Count 11.8 10^3/uL (4.0-11.0)
[2025-01-09 12:52] LABS: Glucose 1 Hour 118 mg/dL (<130)
== END 2025-01-09 10:48 | disposition home or self-care (01) ==
LOC: LAB 10:48
PROVIDERS: PCP Nurse Practitioner Family; Visit Provider Physician Assistant
DX: Z13.1 Encounter for screening for diabetes mellitus (principal)
CPT/HCPCS: 36415; 82950; 85025

== ENCOUNTER 2025-01-11 13:39 | Outpatient (OUT) | payer MEDICAID, SELFPAY ==
--- OUTSIDE RECORDS SUMMARY | 2023-08-31 06:45 | XMS_ITS | Continuity of Care Document ---
Author Organization [facility] Address [address] [place] [address] Phone Care Team Providers Care Financial Secretary Name Role Phone Jo Melvin DDS Unavailable [...] Visit Dental Bitewig-single Film Intraoral-periapical 1st Film Bjpwkwalp-plnhxrqpyp-odjq Additional Jul Oral Hygiene Instruction Limited Oral Eval Oral/Facial Photographic Images 024 Prophylaxis Adult Nutrit Couns For Control Of [place] Dis Jul Oral Hygiene Instruction Oral Hygiene [...] Diagnoses Date Provider Providers Copied on Encounter [facility], [address] [place] [address], [id number], tel:[phone] Dental Clinic de (chief complaint) Encounter for screening for dental disorders Ngozi [facility]. . tel:[phone] [facility], [address] [place] [address], [id number], [place] tel:[phone] Dental Clinic dl (chief complaint) Encounter for screening for dental disorders [facility]. [address] [place] [address], [id number], [place]. tel:[phone] [facility], [address] [place] [address], [id number], tel:[phone] Dental Clinic PA (chief complaint) Body mass index [BMI] 28.0-28.9, adultEncounter for screening for dental disorders [facility]. [address] [place] [address], [id number], [place]. tel:[phone] [facility], [address] [place] [address], [id number], tel:[phone] Dental Clinic fill (chief complaint) Encounter for screening for dental disorders Ngozi S Jo. . tel:[phone] [facility], [address] [place] [address], [id number], [place] tel:[phone] Dental Clinic fill (chief complaint) Encounter for screening for dental disorders Ngozi Osorio. . tel: [phone] [facility], [address] [place] [address], [id number], [place] tel:[phone] Dental Clinic fill (chief complaint) Encounter for screening for dental disorders Ngozi Osorio. . tel: [phone] [facility], [address] [place] [address], [id number], [place] tel:[phone] Dental Clinic DN (chief complaint) Encounter for screening for dental disorders Ngozi Osorio. . tel: [phone] Family History Family Member Type Diagnosis Age [...] on due Goal Influenza vaccine. Due on due Goal Unhealthy drug use screening . Due on due Goal Tdap. Due on due Goal Hepatitis C screening. Due o n due Goal Tdap Vaccine. Due on 2023 due Goal Unhealthy drug use screening . Due on due Goal Tdap. Due on due Goal PAP. Due on due Goal Depression screening. Due [...] PRAPARE ASSESSMENT. Due on S due Goal Depression screening. Due on due [...]
--- OUTSIDE RECORDS SUMMARY | 2024-04-25 09:30 | XMS_ITS ---
Author Organization [facility] Address [address] [place] [address] Care Team Providers Care Aluminum Shingle Roofer Name Role Phone Jennifer Hahn Primary Care Provider [phone] Julieta Sher [phone] REASON FOR VISIT 3 month f/u Encounters Encounter Location Date Provider Diagnosis [facility] [address] [place] [address] 04/25/2024 Julieta Jefferson Plan Of Treatment No Information Progress Notes * GUZMAN DEL CIDDOB: 5 (29 yo F)Acc No.[id number]:04/25/2024 Behavioral Health Patient: GUZMAN AMES Appointment Provider: Adin Jefferson :1995 A ge:29 Y S ex:Female Date:04/25/2024 Address:[address], [place], [id number] Pcp:Jennifer Hahn Subjective: * Chief Complaints: * 1 . 3 month f/u. * Medical History: Objective: * Vitals: Assessment: Plan: * Treatment: * Images: * Electronic signature of NELIDA Newell FNP on 01/14/2025 at 12:05 PM EDT Sign off status: Pending * Appointment Provider: Adin Jefferson Date: 0 04/25/2024 Generated for Printi ng/Faxing/eTransmitting on: 0 01/14/2025 12:05 PM EDT
--- OUTSIDE RECORDS SUMMARY | 2024-07-25 06:30 | XMS_ITS ---
Author Organization [facility] Address [address] [place] [address] Care Team Providers Care Pipe Line Repairer Name Role Phone Jennifer Hahn Primary Care Provider [phone] Julieta Sher [phone] REASON FOR VISIT 3 month f/u Encounters Encounter Location Date Provider Diagnosis [facility] [address] [place] [address] 07/25/2024 Julieta Jefferson Plan Of Treatment No Information Progress Notes * GUZMAN DEL CIDDOB: 5 (29 yo F)Acc No.[id number]:07/25/2024 Behavioral Health Patient: GUZMAN AMES Appointment Provider: Adin Jefferson :1995 A ge:29 Y S ex:Female Date:07/25/2024 Address:[address], [id number] Pcp:Jennifer Hahn Subjective: * Chief Complaints: * 1 . 3 month f/u. * Medical History: Objective: * Vitals: Assessment: Plan: * Treatment: * Images: * Electronic signature of NELIDA Newell FNP on 01/14/2025 at 12:05 PM EDT Sign off status: Pending * Appointment Provider: Adin Jefferson Date: 0 07/25/2024 Generated for Printi ng/Faxing/eTransmitting on: 0 01/14/2025 12:05 PM EDT
--- OUTSIDE RECORDS SUMMARY | 2025-01-03 14:17 | XMS_ITS ---
Author Organization [place] Support Name Relationship Address Phone SRAVAN SANDERS Spouse Unknown [phone] SHIRLEY SANDERS Unknown Unknown [phone] SRAVAN SANDERS Spouse Unknown [phone] KEHINDE KAHN NaturalDaughter Unknown +[phone] SRAVAN SANDERS Spouse Unknown +[phone] SRAVAN SANDERS Spouse Unknown +[phone] SHIRLEY SANDERS Unknown Unknown [phone] SRAVAN SANDERS Spouse Unknown +[phone] KAHN, KEHINDE NaturalDaughter Unknown +[phone] Paulina Sanders Spouse [address] [place] [address] + Paulina Sanders Spouse [address] [facility] [place] [address] + MARC SANDERSA Unknown Unknown [phone] SRAVAN SANDERS Spouse Unknown [phone] KAHN KEHINDE NaturalDaughter Unknown [phone] MARC SANDERSA Unknown Unknown [phone] SRAVAN SANDERS Spouse Unknown +[phone] KAHN, KEHINDE NaturalDaughter Unknown +[phone] Paulina Sanders Spouse [address] [place] [address] + MARC SANDERSA Unknown Unknown +[phone] PAULINA SANDERS Unknown Unknown + KAHN KEHINDE Unknown [address] [place] [address] + KAHN, RASHARD Unknown [address] [address] + MARIA EUGENIAIONSHIRLEY Unknown Unknown +[phone] SRAVAN SANDERS Spouse Unknown [phone] KAHN, KEHINDE NaturalDaughter Unknown +[phone] ION SANDERSNDA Unknown Unknown +[phone] SRAVAN SANDERS Spouse Unknown +[phone] KAHN, KEHINDE NaturalDaughter Unknown +[phone] ION SANDERSNDA Unknown Unknown +[phone] SRAVAN SANDERS Spouse Unknown +[phone] KAHN, KEHINDE NaturalDaughter Unknown +[phone] SANDERSION ANDERSONNDA Unknown Unknown +[phone] MITESH SANDERSE Unknown Unknown + KAHN, KEHINDE Unknown [address] [facility] [place] [address] + KAHN, RASHARD Unknown [address] [facility] [place] [address] + MARC SANDERSA Unknown Unknown +[phone] PAULINA SANDERS Unknown Unknown + KAHN, KEHINDE Unknown [address] [facility] [place] [place] [address] + KAHN, RASHARD Unknown [address] [facility] [place] [address] + ION SANDERSNDA Unknown Unknown +[phone] MITESH SANDERSE Unknown Unknown + KAHN, KEHINDE Unknown [address] [facility] [place] [address] + KAHN, RASHARD Unknown [address] [facility] [place] [address] + MARIA EUGENIA SHIRLEY Unknown Unknown +[phone] MITESH SANDERSE Unknown Unknown + KAHN, KEHINDE Unknown [address] [facility] [place] [address] + KAHN, RASHARD Unknown [address] [place] [address] + SHIRLEY SANDERS Parent Unknown +[phone] SHIRLEY SANDERS Unknown Unknown +[phone] SRAVAN SANDERS Spouse Unknown +[phone] KEHINDE KAHN NaturalDaughter Unknown +[phone] SHIRLEY SANDERS Unknown Unknown +[phone] PAULINA SANDERS Unknown Unknown + KEHINDE KAHN Unknown [address] [place] [address] + RASHARD KAHN Unknown [address] [facility] [place] [address] + KEHINDE KAHN Unknown [address] [place] [place] [address] + Care Team Providers Care Senior Sales Associate Name Role Phone JASWANT BILL Attending Unavailable JASWANT BILL Referring Unavailable VALENCIA, BASIM Attending Unavailable VALENCIA, BASIM Attending Unavailable VALENCIA, BASIM Attending Unavailable VALENCIA, BASIM Referring Unavailable JOJO DEVLIN Attending Unavailable DAVID, SHELLY G Referring Unavailable Amanda Ford Primary Care Unavailable Kassidy Arriaza Admitting Unavailable Kassidy Arriaza Attending Unavailable Chris Dickerson Admitting Unavailable Chris Dickerson Attending Unavailable Eduardo Cruz Admitting Unavailable Eduardo Cruz Attending Unavailable Amanda Ford Primary Care Unavailable VALENCIA, BASIM R Referring Unavailable NO PCP, NO PCP Primary Care Unavailable ENRIKE LINDQUIST Attending Unavailable VALENCIA, BASIM R Referring Unavailable NO PCP, NO PCP Primary Care Unavailable NO PCP, NO PCP Primary Care Unavailable VALENCIA, BASIM R Referring Unavailable DAVID, SHELLY G Referring Unavailable DAVID, SHELLY G Attending Unavailable DAVID, SHELLY G Referring Unavailable ATTHARISH, IGNACIO Attending Unavailable DAVID, SHELLY G Attending [...] Referring Unavailable DAVID, SHELLY G Attending Unavailable Rohrbacher, Amanda Primary Care Unavailable David, Shelly G Admitting Unavailable David, Shelly G Attending Unavailable Rohrbacher, [facility] Primary Care Unavailable David, Shelly G Admitting Unavailable David, Shelly G Attending Unavailable Rohrbacher, [facility] Primary Care Unavailable VALENCIA, BASIM R Admitting Unavailable VALENCIA, BASIM R Attending Unavailable Rohrbacher, [facility] Primary Care Unavailable Speedy, Jojo Attending Unavailable Speedy, Jojo Admitting Unavailable Rohrbacher, [facility] Primary Care Unavailable David, Shelly G Admitting Unavailable David, Shelly G Attending Unavailable [facility], [facility] Primary Care Unavailable SAÚL ENRIQUEZ Attending Unavailable Purpose PROBLEMS DATE TYPE CONDITION / CODE ATTENDING STATUS [facility] 12/05/2024 Unknown Other mental dis orders complicating , second trimester / O99.342(ICD-10) NA [facility] 12/05/2024 Unknown Bipolar disorder , unspecified / F31.9(ICD-10) [facility] 12/05/2024 Unknown Endocrine, nutri tional and metabolic diseases complicating , second trimester / O99.282(ICD-10) NA [facility] 12/05/2024 Unknown Hypothyroidism, unspecified / E03.9(ICD-10) [facility] 12/05/2024 Unknown Bariatric surger y status complicating , unspecified trimester / O99.840(ICD-10) [facility] 01/03/2025 Unknown Obesity complica ting , second trimester / O99.212(ICD-10) [facility] 01/03/2025 Unknown Supervision of resulting from assisted reproductive technology, unspecified trimester / O09.819(ICD-10) [facility] 12/05/2024 Unknown Other specified related conditions, second trimester / O26.892(ICD-10) DOCHEVA, NIKOLINA Diaz [facility] 12/05/2024 Unknown Headache, unspec ified / R51.9(ICD-10) STEPHANIE LINDQUISTNikole Perales [facility] 12/05/2024 Unknown IUI / UNK(Unknown) STEPHANIE LINDQUISTNikole Perales [facility] 12/05/2024 Unknown Pee's Thyroiditis / FREETEXT(AOF) EDIESTEPHANIE PALNikole Perales [facility] 12/05/2024 Unknown Encounter for ot her specified screening / Z36.89(ICD-10) NA [facility] 10/18/2024 Unknown Hemorrhage in ea rly , unspecified / O20.9(ICD-10) Kassidy Arriaza [facility] 09/03/2024 Active Early stage of (HCC) / Z34.90(ICD-10) NA [facility] 08/28/2024 Active result ing from assisted reproductive technology in first trimester (HCC) / O09.811(ICD-10) NA Active [facility] 07/04/2024 Active Female infertili ty / N97.9(ICD-10) NA [facility] 07/04/2024 Active Fertility testin g / Z31.41(ICD-10) 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 COMPARISON: Ob ultrasound [...] II, MD, PHD at 06-Dec-2024 08:04:50 AM [facility] DIPSTICK AND MICROSCOPIC Collected: 11:40 PM Status: F Source: [facility] Order Comment: Comment c/o u rinary symptoms or increased blood pressure Name Collection Type:: Voided TYPE CODE TESTS RESULT OUT OF RANGE REFERENCE UNITS LAB UCOL Color,Urine Light-Yellow Yellow LAB UAPP Appearance,Uri ne Clear Clear LAB USG Specificy Carlyle,Urine 1.017 Normal 1.001-1.030 LAB UPH pH,Urine 5.5 Normal 5.0-9.0 LAB ULE Leukocyte Esterase,Urine Negative Negative LAB UNIT Nitrite,Urine Negative Negative LAB UPRO Protein,Urine Negative Negative mg/dL LAB UGL Glucose,Urine (UA) Normal Normal mg/dL LAB UKET Ketones,Urine Negative Negative LAB UURO Urobilinogen,U rine Normal Normal mg/dL LAB UBIL Bilirubin,Urin e Negative Negative LAB UBLD Occult Blood,Urine 3+ Negative Result Comment: PERFORMED BY : [place] [address] PATHOLOGIST VAT SKIMMER DAMIÁN DOSHI M.D. LAB URBC RBC,Urine 1-2 0-4 [HPF] LAB UWBC WBC,Urine 1-2 0-4 [HPF] LAB USQEPI Squamous Epithelial Cell,Urine 1-2 0-2 [HPF] LAB UBACT Bacteria,Urine 1+ None Seen [HPF] LAB UHYALC Hyaline Casts,Urine None 0-8 [LPF] LAB MUCUS Mucus,Urine 1+ Abnormal Alert [LPF] Result Comment: PERFORMED BY : [place] [address] PATHOLOGIST VAT SKIMMER DAMIÁN DOSHI M.D. Performed By: #### ADDONUAPL #### [address] URINE CULTURE Observed: 11/30/2024 1:13 PM Status: F Source: [facility] 50,000 colonies/ml mixed bacterial skin contaminants 2 Days PERFORMED BY: [place] [address] PATHOLOGIST VAT SKIMMER DAMIÁN DOSHI M.D. Performed By: #### CUU #### [facility] [address] [id number] [facility] US OB <= 14 WEEKS FETUS Observed: 2024 2:19 PM Status: COMPLETED Source: [facility] [place] [address] [place] [address] Ultrasound Report Signed Patient: Jaz Sanders MR#: [id number] : 1995 Acct:[id number] Age/Sex: 29 / F ADM Date: 10/18/24 Loc: ER Room: Type: [facility] ER Attending Dr: Ordering Provider: Kassidy [...] is seen. Impression dictated by: Sravan Dickinson Jr. DRenaeORenae 10/18/2024 2:21 PM Dictation Location: [place] [address] Tech: Natalie Raissa Transcribed By: MAITE 10/18/24 1421 Dictated By: Sravan Dickinson Jr, DO 10/18/24 1419 Signed By: <Electronically signed by Sravan Dickinson Jr, DO in OV> 10/18/24 1421 URINALYSIS Collected: 10/18/2024 1:10 PM Status: F Source: [facility] Order Comment: Name Collecti on Type:: Clean-Voided Midstream TYPE CODE TESTS RESULT OUT OF RANGE REFERENCE UNITS LAB UCOL Color,Urine Colorless Yellow LAB UAPP Appearance,Uri ne Clear Clear LAB USG Specificy [place]le,Urine 1.007 Normal 1.001-1.030 LAB UPH pH,Urine 7.0 Normal 5.0-9.0 LAB ULE Leukocyte Esterase,Urine Negative Negative LAB UNIT Nitrite,Urine Negative Negative LAB UPRO Protein,Urine Negative Negative mg/dL LAB UGL Glucose,Urine (UA) Normal Normal mg/dL LAB UKET Ketones,Urine Trace Negative LAB UURO Urobilinogen,U rine Normal Normal mg/dL LAB UBIL Bilirubin,Urin e Negative Negative LAB UBLD Occult Blood,Urine Negative Negative Result Comment: PERFORMED BY : [place] [address] PATHOLOGIST VAT SKIMMER DAMIÁN DOSHI M.D. Performed By: #### UA, CUU # ### [address] URINE CULTURE Observed: 10/18/2024 1:10 PM Status: F Source: [facility] <9,000 colonies/ml mixed bacterial skin contaminants 2 Days PERFORMED BY: [place] [phone] PATHOLOGIST VAT SKIMMER DAMIÁN DOSHI M.D. Performed By: #### UA, CUU # ### [address] GENITAL CULTURE Observed: 10/18/2024 12:25 PM Status: F Source: [facility] Genital Results Light Normal Urogenital Gale 2 Days No More GC Specimen not tested for Neisseria gonorrheae PERFORMED BY: [place] [phone] PATHOLOGIST VAT SKIMMER DAMIÁN DSOHI M.D. Performed By: #### GCCHLAMAM P #### [facility] , #### CUGEN #### [facility] [address] [place] [address] CHLAMYDIA/GC AMPLIFICATION Collected: 0 10/18/2024 12:25 PM Status: F Source: [facility] Order Comment: SOURCE OF SPE CIMEN: Genital TYPE CODE TESTS RESULT OUT OF RANGE REFERENCE UNITS LAB CHLAM AC.... Chlamydia Trachomotis, AC Negative Negative LAB GC AC... Neisseria Gonorrhoeae, AC Negative Negative Result Comment: Performed at : =G - [facility] [address] [id number] Supervisor Tank Cleaning: Dagmar Love MD, Phone: [phone] PERFORMED BY: [address] [address] PATHOLOGIST VAT SKIMMER DAMIÁN DOSHI M.D. Performed By: #### GCCHLAMAM P #### [facility] , #### CUGEN #### [address] CODING SUMMARY Observed: 10/02/2024 1:58 PM Status: F Source: [facility] HTMLBase 64 [id number] ZXJu [file] [id number]= C URINE Observed: 09/26/2024 10:35 AM Status: F Source: [facility] Mixed skin, or urogenital fl ora. Clinically insignificant Performed By: #### [id number] # ### [facility] (DEFAULT) [address] [place] [address] HIV 4TH GEN SCREEN W REFLEX LC Collecte d: 09/26/2024 10:29 AM Status: F Source: [facility] TYPE CODE TESTS RESULT OUT OF RANGE REFERENCE UNITS LAB [id number](LOIN C) HIV Scr 4th Gen LC Non Reactive Unknown Non Reactive Result Comment: HIV-1/HIV-2 antibodies and HIV-1 p24 antigen were NOT detected. There is no laboratory evidence of HIV infection. HIV Negative Performed At: [facility] [address] [place], [place] [id number] J Luis Gray PhD Ph:[phone] Performed By: #### [id number] #### [facility] (DEFAULT) [address] [place] [address] COMPLIANCE DRUG ANALYSIS, UR LC Collect ed: 09/26/2024 10:29 AM Status: F Source: [facility] TYPE CODE TESTS RESULT OUT OF RANGE REFERENCE UNITS LAB [id number](VIC NC) Summary LC FINAL Unknown Result Comment: TOXASSURE COMP DRUG ANALYSIS,UR Test Result Flag Units Drug Present Carboxy-THC 180 ng/mg creat Carboxy-THC is a metabolite of tetrahydrocannabinol (THC). Source of THC is most commonly herbal marijuana or marijuana-based products, but THC is also present in a scheduled prescription medication. Trace amounts of THC can be present in hemp and cannabidiol (CBD) products. This test is not intended to distinguish between nmdou-3-mgxvsncjmdpfoupfixwu, the predominant form of THC in most herbal or marijuana-based products, and ioobu-8-acffkmcykefjgdmycydb. Lamotrigine PRESENT Acetaminophen PRESENT Test Result Flag Units Ref Range Creatinine 45 mg/dL >=20 Declared Medications: Medication list was not provided. For clinical consultation, please call . ToxAssure, ToxAssure FLEX or MAT drug testin -Technical component - Data analysis performed at [facility], [address] [place] [phone]. [phone]. Supervisor Tank Cleaning César Bains MD. ToxAssure, ToxAssure FLEX or MAT drug testing: -Technical component - Result certification performed at [facility], [address] [place] [phone]. [phone] Supervisor Tank Cleaning César Bains MD. Performed At: [employer] [address] [place] [phone] Brendon Galan [facility] Ph:[phone] Performed By: #### [id number] #### [facility] ([facility]) [address] [place] [address] CBC W/ AUTO DIFF Collected: 5 10:29 AM Status: F Source: [facility] TYPE CODE TESTS RESULT OUT OF RANGE REFERENCE UNITS LAB 1764576(LOINC) Man Diff? Auto Unknown LAB 0019577(LOINC) WBC 7.8 3.5-10.5 x10 LAB 4424203(LOINC) RBC 4.76 3.70-5.30 x10 LAB 8446882(LOINC) Hgb 13.9 11.3-15.9 gm/dL LAB 7019743(LOINC) Hct 39.9 33.7-40.4 % LAB 9093299(LOINC) MCV 84 81-100 fL LAB 4700489(LOINC) MCH 29 24-34 pg LAB 4916501(LOINC) MCHC 35 26-37 gm/dL LAB 5849648(LOINC) RDW 13.2 11.5-15.0 % LAB 8674249(LOINC) Platelet 210 138-427 x10 LAB 4105552(LOINC) MPV 6.3 6.3-10.2 fL Performed By: #### [id number], [id number], 84557108, [id number], 74076688, 38407124, 3403726, 9300117 #### [facility] (DEFAULT) [address] [place] [address] .AUTO DIFF 1 Collected: 10:29 AM Status: F Source: [facility] TYPE CODE TESTS RESULT OUT OF RANGE REFERENCE UNITS LAB 3666086(LOINC) Auto Neut % 66 44-88 % LAB 6564220(LOINC) Auto Lymph % 26 14-48 % LAB 5660783(LOINC) Auto [place] % 6 1-12 % LAB 2752444(LOINC) Auto Eos % 2.0 0.9-4.0 % LAB 7528348(LOINC) Auto Baso % 0.1 Low 0.2-2.0 % LAB 9970875(LOINC) Neut Abs# 5.1 1.5-9.2 x10 LAB 6608467(LOINC) Lymph Abs# 2.0 1.3-2.9 x10 LAB 4873404(LOINC) [place] Abs# 0.5 0.0-0.8 x10 LAB 3079619(LOINC) Eos Abs# 0.2 0.0-0.4 x10 LAB 3468473(LOINC) Baso Abs# 0.0 0.0-0.2 x10 Performed By: #### 49743674, [id number], 79294292, 0841406370, 61163897, 15128025, 9752321, 1867783 #### [facility] (DEFAULT) [address] [place] [address] ABORH Observed: 09/26/2024 10:29 AM Status: F Source: [facility] Hx Check: Not Found Anti-A: 4+ Anti-B: 0 Anti-D: 2+ DCon: NT A1: 0 B: 2+ ABORh Interp: A POS Performed By: #### 10745964, [id number], 60253119, [id number], 90904866, 64187519, 9344190, 7259131 #### [facility] (DEFAULT) [address] [place] [address] ABSC GEL Observed: 09/26/2024 10:29 AM Status: F Source: [facility] SC1 Gel: 0 SC2 Gel: 0 SC3 Gel: 0 ABSC Gel Interp: Negative Performed By: #### [id number], [id number], 19420900, 2070079472, 20959076, 53818418, 5058175, 8914029 #### [facility] (DEFAULT) [address] [place] [address] HGBA1C STANDARD Collected: 10:29 AM Status: F Source: [facility] TYPE CODE TESTS RESULT OUT OF RANGE REFERENCE UNITS LAB 3107101(INC) Estimated Avg Glucose 91 Unknown mg/dL LAB 69921734(LOINC) Hgb A1c % 4.8 4.6-6.2 % LAB 4822046529(LOIN C) .Hb 13.1 Unknown LAB 2019170038(LOIN C) .Hgb A1c 0.38 Unknown g/dL Performed By: #### 92077818, 9708818484, 91873340, 3608619637, 63004635, 27400484, 5920804, 4687426 #### [facility] (DEFAULT) [address] [place] [address] RPR, RFX QN RPR/CONFIRM TP LC Collected : 09/26/2024 10:29 AM Status: F Source: [facility] TYPE CODE TESTS RESULT OUT OF RANGE REFERENCE UNITS LAB 85113680([facility]) RPR LC Non Reactive Unknown Non Reactiv e Performed By: #### 80655650, [id number], 94840190, 3733381282, 77296713, 14356062, 8590379, 7419554 #### [facility] (DEFAULT) [address] [place] [address] HBSAG SCREEN LC Collected: 10:29 AM Status: F Source: [facility] TYPE CODE TESTS RESULT OUT OF RANGE REFERENCE UNITS LAB 71955516([facility]) HBsAg Screen LC Negative Unknown Negative Result Comment: Performed At : [facility] [address] [place], [place] [id number] J Luis Gray PhD Ph:[phone] Performed By: #### 14631340, [id number], 56241296, 2203492348, 26899402, 89496946, 2304593, 4876214 #### [facility] (DEFAULT) [address] [place] [address] RUBELLA ANTIBODIES, IGG LC Collected: 0 09/26/2024 10:29 AM Status: F Source: [facility] TYPE CODE TESTS RESULT OUT OF RANGE REFERENCE UNITS LAB 91290529([facility]) Rubella Antibodies, IgG LC 2.78 Unknown Immune >0.99 index Result Comment: Non-immune < 0.90 Equivocal 0.90 - 0.99 Immune >0.99 Performed At: [facility] [address] [place], [place] [id number] J Luis Gray PhD Ph:[phone] Performed By: #### 90926303, [id number], 63951013, 7059704131, 53745939, 36420725, 7524114, 4867702 #### [facility] (DEFAULT) [address] [place] [address] PROVIDER ORDERS Observed: 09/26/2024 10:15 AM Status: F Source: [facility] [id number] US OB TRANSVAGINAL Observed: 09/20/2024 1:54 PM Status: F Source: [facility] EPIC Order Comment: US OB TRANSVA GINAL No LMP recorded. EXAM: US OB TRANSVAGINAL HISTORY: Dating, IVF. [...] II, MD, PHD at 21-Sep-2024 08:26:46 AM [facility] PROCEDURE Observed: 09/05/2024 10:44 PM Status: COMPLETED Source: [facility] ID: [id number] Author: SHELLY HERNANDEZ APRN.LEAD ANDROID DEVELOPER Service: ? Author Type: Nurse Practitioner Type: Procedures Filed: 09/05/2024 22:45 Note Text: WHI JAMEL IUI PROCEDURE NOTE Date: 07/31/2024 Primary Proceduralist: Shelly Hernandez APRN.LEAD ANDROID DEVELOPER Consents and Labels Consent Signed: Informed Consent obtained and on the chart Labels Verified With Patient: Yes Indications: Jaz Sanders, is a 29 year old female here today for intrauterine insemination. IUI # 3. Cycle Day: Last menstrual period: 07/19/2024 [place] Protocol: UNIVERSAL PROTOCOL / SAFETY CHECKLIST Procedure [...] SIGNATURE: Shelly Hernandez APRN.CNP PATIENT NAME: Jaz aSnders DATE: September 05, 2024 TIME: 10:45 PM PROGRESS Observed: 09/03/2024 5:39 PM Status: [facility]TED [id number] Author: CHARISSE WEAVER APRN.CNP Service: ? Author [...] levels: 08/13 - 63.6 4/30 - 160.6 5/ - 362.7 Dating on 08/28 : Currently [...] Weaver APRN.CNP September 03, 2024 5:39 PM CNNURSE Observed: 09/03/2024 10:40 AM Status: COMPLETED Source: [facility] Nurse Visit (REIAV) JAZ SANDERS ([id number]) 1995 F Date Time Provider Department 09/03/24 10:40 AM TECH 1 [facility] REJ REANURAGV During your visit today, we recorded the [...] 2024 5:39 PM Referring Provider: SHELLY HERNANDEZ [[id number]] Allergies As of Date: 09/03/2024 (Not on File) Date Reviewed: 08/20/2024 Reviewed by: Shelly Hernandez APRN.CNP - Fully Assessed Visit Diagnosis:Early stage of (HCC) [Z34.90] Order(s):OBSTETRIC ULTRASOUND [facility] [[id number]] Order #: [id number] #:[id number]: [id number] Prescriptions as of 09/03/2024 - buPROPion [...] Encounter Status:Closed by BRADFORD DOSS on 09/03/24 PROGRESS Observed: 08/30/2024 4:36 PM Status: COMPLETED Source: [facility] HNO ID: [id number] Author: MIKEY TORRES MD Service: ? Author Type: Physician Type: Progress Notes Filed: 08/30/2024 16:36 Note Text: Viable ratliff IUP Size equal Date. Plan: patient to follow up with her ob for care. Stacy Banuelos MD PROGRESS Observed: 08/28/2024 5:31 PM Status: COMPLETED Source: [facility] HNO ID: [id number] Author: SHELLY HERNANDEZ APRN.LEAD ANDROID DEVELOPER Service: ? Author Type: Nurse Practitioner Type: [...] next week as scheduled Shelly Hernandez APRN.CNP CNNURSE Observed: 08/28/2024 11:10 AM Status: COMPLETED Source: [facility] Nurse Visit (REIBD) JAZ SANDERS ([id number]) 1995 F Date Time Provider Department 08/28/24 11:10 AM [facility] 2 [facility] BEAC REIBD During your visit today, we [...] Stacy Banuelos MD Referring Provider: SHELLY HERNANDEZ [[id number]] Allergies As of Date: 08/28/2024 (Not on File) Date Reviewed: 08/20/2024 Reviewed by: David, Shelly G, SPIRAL MACHINE OPERATOR.LEAD ANDROID DEVELOPER - Fully Assessed Visit Diagnosis: 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) [O09.811] Order(s):OBSTETRIC ULTRASOUND [facility] [[id number]] Order #: [id number]. #:[id number]: 1 Prescriptions as of 08/30/2024 - buPROPion [...] Encounter Status:Closed by MIKEY HENLEY on 08/30/24 JARRODN Observed: 08/24/2024 12:00 AM Status: COMPLETED Source: [facility] Telephone (REIBD) JAZ SANDERS ([id number]) 1995 F Date Time Provider Department 08/24/24 [...] Date Reviewed: 08/20/2024 Reviewed by: Shelly Hernandez, MELY.LEAD ANDROID DEVELOPER - Fully Assessed Reason for Visit: Patient [...] Encounter Status:Closed by MARIANNA WARD on 08/24/24 MIL Observed: 08/23/2024 12:00 AM Status: COMPLETED Source: [facility] Telephone (REIBD) SANDERSJAZ ANDERSON ([id number]) 1995 F Date Time Provider Department 08/23/24 SHELLY HERNANDEZ During your visit today, we recorded the following information about you: Angella Mccarthy 08/23/2024 10:39 AM Signed Name: Jaz Sanders called today. : 1995 (home) [phone] (cell) Reason for call: pt called today informing the nurse she has been experiencing pain of level 4 from 1-10. Pt has been experiencing pain for 2 day. 5 weeks today. The patients preferred pharmacy has been captured for this encounter? Angella Morillo Partition NotcherShelly Easley, SPIRAL MACHINE OPERATOR.LEAD ANDROID DEVELOPER 08/24/2024 5:58 PM Signed spoke with Jaz, [...] slot. Call to patient needed: no Morillo Partition Notcher, Lana 08/25/2024 8:37 AM Signed Pt is scheduled on 09/03/2024. Shelly Hernandez APRN.CNP 08/27/2024 11:51 AM Signed Addended by: SHELLY HERNANDEZ on: 08/27/2024 11:51 AM Modules accepted: Orders Allergies As of Date: 08/23/2024 (Not on File) Date Reviewed: 08/20/2024 Reviewed by: Shelly Hernandez APRN.CNP - Fully Assessed Reason for Visit: Pain [78] Primary Visit Diagnosis:Early stage of (HCC) [Z34.90] Order(s):OBSTETRIC ULTRASOUND [facility] [[id number]] Order #: [id number]: 1 FUTURE Prescriptions as of 08/27/2024 - [...] Encounter Status:Closed by SHELLY HERNANDEZ on 08/24/24 CODING SUMMARY Observed: 08/22/2024 1:01 PM Status: F Source: [facility] HTMLBase 64 CrivpanpYDu6yIm+PGhlYWQ+LG3GUQAyW10tqTFjdO8cS5UGGCeNSjobJJXJGWmYWrHzydPjOZ3eqQTc ZXJu [file] bD4= CODING SUMMARY Observed: 08/20/2024 12:30 PM Status: F Source: [facility] [employer] 64 XduuaqvxSEp4tLy+PGhlYWQ+DY8BOCNgO92ojPHfaE6kL6KVNBrUEhwhWKZXRNkQAkFpphGnFA5spLSb ZXJu [file] Pg== CODING SUMMARY Observed: 08/20/2024 9:13 AM Status: F Source: [facility] [employer] 64 GhzxncdkLXt2iUq+PGhlYWQ+ME1AACOgW83aaGMjkR7sW9REPBaYImieFKYPLOmHTuFzfiMdFX5tgCJo ZXJu [file] bWw+ PROGRESS Observed: 08/20/2024 8:33 AM Status: COMPLETED Source: [facility] ID: [id number] Author: SHELLY HERNANDEZ APRN.LEAD ANDROID DEVELOPER Service: ? Author Type: Nurse Practitioner Type: [...] from assisted reproductive technology in first trimester ([facility]) O09.811 OBSTETRIC ULTRASOUND [facility] Plan: further labwork needed: no scan scheduled: 09/03 medications to discontinue: patient to discuss status with her providers Schedule with OB: 09/13 Shelly Hernandez APRN.LEAD ANDROID DEVELOPER August 20, 2024 8:33 AM Please schedule the patient for the following- Location: [place] Provider: nurse Visit type: Reason for visit/appointment notes: scan Date: 09/03 Time (requested): 1040 If slot is full, please schedule the closest open slot. Call to patient needed: no I spent a total of 30 minutes on the date of the service which included preparing to see the patient, qdmt-cx-gdwq patient care, completing clinical documentation, obtaining and/or [...] grammatical and typographical errors missed in proofreading. HCG QUANTITATIVE Collected: 08/17/2024 10:50 AM Stat us: F Source: [facility] TYPE CODE TESTS RESULT OUT OF RANGE REFERENCE UNITS LAB 9320102(LOINC) hCG Quantitative 362.7 High 0.0-0.6 mIU/mL Result Comment: [place] Reference Range is: 0.1-11.6 mIU/mL Performed By: #### [id number] # ### [facility] (DEFAULT) [address] [place] [address] PROVIDER ORDERS Observed: 08/17/2024 10:44 AM Status: F Source: [facility] [id number]#1.00OTGTIFF CNPN Observed: 08/16/2024 12:00 AM Status: COMPLETED Source: [facility] Telephone (REIBD) JAZ SANDERS ([id number]) 1995 F Date Time Provider Department 08/16/24 SHELLY HERNANDEZ During your visit today, we recorded the following information about you: Angella Mccarthy 08/16/2024 12:31 PM Signed Name: Jaz Maria Eugenia called today. : 1995 (home) [phone] (cell) Reason for call: pt called that she got positive test, she has been having having cramping since last night , it happens every hours for couple minutes. The patients preferred pharmacy has been captured for this encounter? yes Angella Morillo Partition NotcherDaniel Li APRN.LEAD ANDROID DEVELOPER 08/16/2024 5:28 PM Signed Called patient back [...] Encounter Status:Closed by DANIEL HANNA on 08/16/24 HCG QUANTITATIVE Collected: 08/15/2024 1:07 PM Statu s: F Source: [facility] TYPE CODE TESTS RESULT OUT OF RANGE REFERENCE UNITS LAB 8170480(LOINC) hCG Quantitative 160.6 High 0.0-0.6 mIU/mL Result Comment: [place] Reference Range is: 0.1-11.6 mIU/mL Performed By: #### [id number] # ### [facility] (DEFAULT) [address] [place] [address] PROVIDER ORDERS Observed: 08/15/2024 1:00 PM Status: F Source: [facility] [id number]#1.00OTGTIFF MIL Observed: 08/15/2024 12:00 AM Status: COMPLETED Source: [facility] Telephone (REIBD) JAZ SANDERS ([id number]) 1995 F Date Time Provider Department 08/15/24 [...] Date Reviewed: 05/09/2024 Reviewed by: Shelly Hernandez, MELY.LEAD ANDROID DEVELOPER - Fully Assessed Reason for Visit: Patient Question [3037] Prescriptions as of 08/23/2024 - buPROPion SR [...] Encounter Status:Closed by SHELLY HERNANDEZ on 08/15/24 HCG QUANTITATIVE Collected: 08/13/2024 2:02 PM Statu s: F Source: [facility] TYPE CODE TESTS RESULT OUT OF RANGE REFERENCE UNITS LAB 2201166(LOINC) hCG Quantitative 63.6 High 0.0-0.6 mIU/mL Result Comment: [place] Reference Range is: 0.1-11.6 mIU/mL Performed By: #### [id number] # ### [facility] (DEFAULT) [address] [place] [address] PROVIDER ORDERS Observed: 08/13/2024 1:56 PM Status: F Source: [facility] [id number]#1.00OTGTIFF CNPN Observed: 08/13/2024 12:00 AM Status: COMPLETED Source: [facility] Telephone (REIBD) JAZ SANDERS ([id number]) 1995 F Date Time Provider Department 08/13/24 SHELLY HERNANDEZ During your visit today, we recorded the following information about you: Marianna Ward RN 08/13/2024 11:19 AM Signed Letters sent. sent to patient Marianna Ward RN August 13, 2024 11:19 AM Allergies As of Date: 08/13/2024 (Not on File) Date Reviewed: 05/09/2024 Reviewed by: Shelly Hernandez, SPIRAL MACHINE OPERATOR.LEAD ANDROID DEVELOPER - Fully Assessed Reason for Visit: Wants hcg levels sent to [facility] / lives far away [Other] Prescriptions [...] Encounter Status:Closed by MARIANNA WARD on 08/13/24 PROGRESS Observed: 07/31/2024 3:52 PM Status: COMPLETED Source: [facility] HNO ID: [id number] Author: DOMINGUEZ BARRY, ? Service: ? Author Type: Seal Delivery Vehicle Team Technician Type: Progress Notes Filed: 09/05/2024 22:45 Note Text: IUI Cryobio Donor # [id number] Pre: frozen washed specimen Post: 82 M/ml, 67% Insem # 27.5 million PROGRESS Observed: 07/31/2024 3:25 PM Status: COMPLETED Source: [facility] HNO ID: [id number] Author: DOMINGUEZ BARRY, ? Service: ? Author Type: Seal Delivery Vehicle Team Technician Type: Progress Notes Filed: 07/31/2024 15:26 Note Text: Thaw for IUI. Dominguez Barry PROGRESS Observed: 07/31/2024 3:24 PM Status: COMPLETED Source: [facility]NO ID: [id number] Author: DOMINGUEZ BARRY, ? Service: ? Author Type: Seal Delivery Vehicle Team Technician Type: Progress Notes Filed: 09/05/2024 22:45 Note Text: IUI specimen released to provider Dominguez Barry July 31, 2024 3:24 PM PROGRESS Observed: 07/31/2024 3:11 PM Status: COMPLETED Source: [facility] HNO ID: [id number] Author: MUSTAPHA TELLO MA Service: ? Author Type: Chief Embalmer Type: Progress Notes Filed: 07/31/2024 15:12 Note Text: Patient verified by full name and date of . Jaz Sanders is here today for an IUI. LMP: 07/19/2024 Natural cycle IUI Timed With: Ovulation Predictor Kit , Date: 07/30/2024 Technical Marketing Consultant offered: Patient declines Mustapha Tello MA July 31, 2024 3:12 PM CNOV Observed: 07/31/2024 3:00 PM Status: COMPLETED Source: [facility] Office Visit (REIBD) JAZ SANDERS ([id number]) 1995 F Date Time Provider Department 07/31/24 3:00 PM SHELLY HERNANDEZ REARLET During your visit today, we recorded the following information about you: Last Period 07/19/24 Mustapha Tello MA 07/31/2024 3:12 PM Addendum Patient verified by full name and date of . Jaz Sanders is here today for an IUI. LMP: 07/19/2024 Natural cycle IUI Timed With: Ovulation Predictor Kit , Date: 07/30/2024 Technical Marketing Consultant offered: Patient declines Mustapha Tello MA July 31, 2024 3:12 PM Dominguez Barry 09/05/2024 10:45 PM Signed IUI specimen released to provider Dominguez Barry July 31, 2024 3:24 PM Dominguez Barry 09/05/2024 10:45 PM Signed IUI Cryobio Donor # [id number] Pre: frozen washed specimen Post: 82 M/ml, [...] 3. Cycle Day: Last menstrual period: 07/19/2024 [place] Protocol: UNIVERSAL PROTOCOL / SAFETY CHECKLIST Procedure [...] Encounter Status:Closed by SHELLY HERNANDEZ on 09/05/24 CNOV Observed: 07/31/2024 2:30 PM Status: COMPLETED Source: [facility] Office Visit (ANDRBE) JAZ SANDERS ([id number]) 1995 F Date Time Provider Department 07/31/24 2:30 PM ANDROLOGY [employer]ER [facility] During your visit today, we recorded the following information about you: Dominguez Barry 07/31/2024 3:26 PM Signed Thaw for IUI. Dominguez Barry Referring Provider: SELF [200] Allergies As of Date: 07/31/2024 (Not on File) Date Reviewed: 05/09/2024 Reviewed by: Shelly Hernandez APRN.LEAD ANDROID DEVELOPER - Fully Assessed Primary Visit Diagnosis:Procreative management [...] Encounter Status:Closed by DOMINGUEZ BARRY on 07/31/24 CNPN Observed: 07/30/2024 12:00 AM Status: COMPLETED Source: [facility] Telephone (REIBD) JAZ SANDERS ([id number]) 1995 F Date Time Provider Department 07/30/24 SHELLY HERNANDEZ During your visit today, we recorded the following information about you: Charisse Ding 07/30/2024 3:16 PM Signed N- ivf Pt has questions regarding IUI Shelly Hernandez APRN.CNP 07/30/2024 6:00 PM Signed patient's OPK today was dark but not positive Plan: test again tomorrow. if darker, schedule IUI on Tuesday if blanket weaver than today, schedule IUI the same day [...] Encounter Status:Closed by SHELLY HERNANDEZ on 07/30/24 PROGRESS Observed: 07/08/2024 8:07 AM Status: COMPLETED Source: [facility] ID: [id number] Author: NICHELLE GONZALEZ, ? Service: ? Author Type: Seal Delivery Vehicle Team Technician Type: Progress Notes Filed: 07/19/2024 07:50 Note Text: IUI Cryobio #[id number] Washed frozen specimen Post: 31 m/ml, 77% Insem#: 10.8 million PROGRESS Observed: 07/07/2024 10:10 AM Status: COMPLETED Source: [facility] HNO ID: [id number] Author: LISA NICHELLE, ? Service: ? Author Type: Seal Delivery Vehicle Team Technician Type: Progress Notes Filed: 07/19/2024 07:50 Note Text: IUI specimen released to provider Nichelle Gonzalez July 07, 2024 10:10 AM PROCEDURE Observed: 07/07/2024 10:04 AM Status: COMPLETED Source: [facility] HNO ID: [id number] Author: MIKEY TORRES MD Service: ? Author [...] Cycle Day: 14 Last menstrual period: 06/24/2024 [place] Protocol: UNIVERSAL PROTOCOL / SAFETY CHECKLIST Procedure [...] primary surgeon/proceduralist with assistance. Stacy Banuelos MD CNOV Observed: 07/07/2024 10:00 AM Status: COMPLETED Source: [facility] Office Visit (REIBD) SANDERSJAZ ANDERSON ([id number]) 1995 F Date Time Provider Department 07/07/24 [...] Cycle Day: 14 Last menstrual period: 06/24/2024 [place] Protocol: UNIVERSAL PROTOCOL / SAFETY CHECKLIST Procedure [...] by the primary surgeon/proceduralist with assistance. MD Lisa Jim Meghan E 07/19/2024 7:50 AM Signed IUI specimen released to provider Nichelle Gonzalez July 07, 2024 10:10 AM Nichelle Gonzalez 07/19/2024 7:50 AM Signed IUI Cryobio #[id number] Washed frozen specimen Post: 31 m/ml, 77% Insem#: 10.8 million Referring Provider: DANIEL HANNA [[id number]] Allergies As of Date: 07/07/2024 (Not on File) Date Reviewed: 05/09/2024 Reviewed by: Shelly Hernandez APRN.LEAD ANDROID DEVELOPER - Fully Assessed Primary Visit Diagnosis:Encounter for [...] Encounter Status:Closed by MIKEY HENLEY on 07/19/24 PROGRESS Observed: 07/07/2024 9:41 AM Status: COMPLETED Source: [facility]NO ID: [id number] Author: NICHELLE GONZALEZ, ? Service: ? Author Type: Seal Delivery Vehicle Team Technician Type: Progress Notes Filed: 07/07/2024 09:41 Note Text: Thaw for IUI Nichelle Gonzalez CNOV Observed: 07/07/2024 9:30 AM Status: COMPLETED Source: [facility] Office Visit (ANDRBE) JAZ SANDERS ([id number]) 1995 F Date Time Provider Department 07/07/24 9:30 AM ANDROLOGY [employer]ER ANDRBE During your visit today, we recorded the following information about you: Nichelle Gonzalez 07/07/2024 9:41 AM Signed Thaw for IUI Nichelle Gonzalez Referring Provider: DANIEL HANNA [[id number]] Allergies As of Date: 07/07/2024 (Not on File) Date Reviewed: 05/09/2024 Reviewed by: Shelly Hernandez APRN.LEAD ANDROID DEVELOPER - Fully Assessed Primary Visit Diagnosis:Procreative management [...] Encounter Status:Closed by NICHELLE GONZALEZ on 07/07/24 JARRODN Observed: 07/06/2024 12:00 AM Status: COMPLETED Source: [facility] Telephone (REIBD) SANDERSJAZ ANDERSON ([id number]) 1995 F Date Time Provider Department 07/06/24 [...] Date Reviewed: 05/09/2024 Reviewed by: Shelly Hernandez APRN.LEAD ANDROID DEVELOPER - Fully Assessed Reason for Visit: Patient [...] Encounter Status:Closed by BECKI ISAACS on 07/06/24 JARRODN Observed: 07/05/2024 12:00 AM Status: COMPLETED Source: [facility] Telephone (REIBD) JAZ SANDERS ([id number]) 1995 F Date Time Provider Department 07/05/24 [...] Date Reviewed: 05/09/2024 Reviewed by: Shelly Hernandez APRN.LEAD ANDROID DEVELOPER - Fully Assessed Reason for Visit: re [...] Encounter Status:Closed by MARIANNA WARD on 07/06/24 PROGRESS Observed: 07/04/2024 4:27 PM Status: COMPLETED Source: [facility] HNO ID: [id number] Author: IGNACIO GUY MD Service: ? Author Type: Physician Type: Progress Notes Filed: 07/04/2024 16:27 Note Text: 1 CNPN Observed: 07/04/2024 12:00 AM Status: COMPLETED Source: [facility] Telephone (REIBD) JAZ SANDERS ([id number]) 1995 F Date Time Provider Department 07/04/24 SHELLY HERNANDEZ REIBAri During your visit today, we recorded the following information about you: Shelly Hernandez, SPIRAL MACHINE OPERATOR.LEAD ANDROID DEVELOPER 07/04/2024 7:30 PM Signed Spoke with Jaz [...] need to be removed. She will need [facility] guidance for her next IUI. Dr. [...] Encounter Status:Closed by SHELLY HERNANDEZ on 07/04/24 MLI Observed: 06/29/2024 12:00 AM Status: COMPLETED Source: [facility] Telephone (REIBD) JAZ SANDERS ([id number]) 1995 F Date Time Provider Department 06/29/24 [...] message to return my call Shelly Hernandez APRN.LEAD ANDROID DEVELOPER July 03, 2024 12:33 PM Patricia Snow [...] Encounter Status:Closed by MARIANNA WARD on 08/13/24 PROCEDURE Observed: 06/09/2024 12:01 PM Status: COMPLETED Source: [facility] ID: [id number] Author: IGNACIO GUY MD Service: ? Author [...] Cycle Day: 13 Last menstrual period: 05/28/2024 [place] Protocol: UNIVERSAL PROTOCOL / SAFETY CHECKLIST Procedure [...] pelvis, prostate and anorectal regions) Patient declined log rafter. Vidhi Sheldon MD IUI IUI Date: 06/09/24 [...] stopped. Will get pelivc scan here at [facility] if not with this IUI prior pt proceeding with another attmept at IUI. Ignacio Guy MD June 09, 2024 12:30 PM SIGNATURE: Vidhi Sheldon MD PATIENT NAME: Jaz Sanders DATE: June 09, 2024 TIME: 12:01 PM PROGRESS Observed: 06/09/2024 11:52 AM Status: COMPLETED Source: [facility] HNO ID: [id number] Author: NICHELLE GONZALEZ, ? Service: ? Author Type: Seal Delivery Vehicle Team Technician Type: Progress Notes Filed: 06/09/2024 12:30 Note Text: IUI Cryobio #: [id number] Washed frozen sample Post: 42 m/ml, 74% Insem#: 15.5 million PROGRESS Observed: 06/09/2024 11:47 AM Status: COMPLETED Source: [facility] HNO ID: [id number] Author: NICHELLE GONZALEZ, ? Service: ? Author Type: Seal Delivery Vehicle Team Technician Type: Progress Notes Filed: 06/09/2024 11:48 Note Text: Thaw for IUI Nichelle Gonzalez PROGRESS Observed: 06/09/2024 11:24 AM Status: COMPLETED Source: [facility] HNO ID: [id number] Author: NICHELLE GONZALEZ, ? Service: ? Author Type: Seal Delivery Vehicle Team Technician Type: Progress Notes Filed: 06/09/2024 12:30 Note Text: IUI specimen released to provider Nichelle Gregory Steffkimberly June 09, 2024 11:24 AM CNOV Observed: 06/09/2024 11:00 AM Status: COMPLETED Source: [facility] Office Visit (REIBD) JAZ SANDERS ([id number]) 1995 F Date Time Provider Department 06/09/24 11:00 AM IGNACIO GUY During your visit today, we recorded the following information about you: Nichelle Gonzalez Colt 06/09/2024 12:30 PM Signed IUI specimen released to provider Nichelle Gregory Steffkimberly June 09, 2024 11:24 AM Nichelle Gonzalez Colt 06/09/2024 12:30 PM Signed IUI Cryobio #: [id number] Washed frozen sample Post: 42 m/ml, 74% Insem#: 15.5 million Vidhi Sheldon MD 06/09/2024 12:02 PM Addendum WHI JAMEL IUI PROCEDURE NOTE Date: 06/09/2024 Primary Proceduralist: Vidhi Sheldon MD Consents and Labels Consent Signed: Informed Consent obtained and on the chart Labels Verified With Patient: Yes Indications: Jaz Maria Eugenia, is a 29 year old No obstetric history on file. female here today for intrauterine insemination. IUI # 1. Cycle Day: 13 Last menstrual period: 05/28/2024 [place] Protocol: UNIVERSAL PROTOCOL / SAFETY CHECKLIST Procedure [...] pelvis, prostate and anorectal regions) Patient declined log rafter. Vidhi Sheldon MD IUI IUI Date: 06/09/24 [...] stopped. Will get pelivc scan here at [facility] if not with this IUI prior pt proceeding with another attmept at IUI. Ignacio Guy MD June 09, 2024 12:30 PM SIGNATURE: Vidhi Sheldon MD PATIENT NAME: Jaz Sanders DATE: June 09, 2024 TIME: 12:01 PM Referring Provider: DANIEL HANNA [[id number]] Allergies As of Date: 06/09/2024 (Not on File) Date Reviewed: 05/09/2024 Reviewed by: Shelly Hernandez APRN.LEAD ANDROID DEVELOPER - Fully Assessed Primary Visit Diagnosis:Female infertility [...] Encounter Status:Closed by IGNACIO GUY on 06/09/24 CNOV Observed: 06/09/2024 10:30 AM Status: COMPLETED Source: [facility] Office Visit (ANDRBE) JAZ SANDERS ([id number]) 1995 F Date Time Provider Department 06/09/24 10:30 AM [facility] During your visit today, we recorded the following information about you: Nichelle Gonzalez 06/09/2024 11:48 AM Signed Thaw for IUI Nichelle Gonzalez Referring Provider: DANIEL HANNA [[id number]] Allergies As of Date: 06/09/2024 (Not on [...] Encounter Status:Closed by NICHELLE GONZALEZ on 06/09/24 CODING SUMMARY Observed: 05/24/2024 7:29 AM Status: F Source: [facility] HTMLBase 64 DnnqhnyuEPc9bXx+PGhlYWQ+XI2UKFGcZ89kbYPmlK1fF0MCZOvGBufrVKCVGTaEFtPgbwKxXG7qzYJp ZXJu [file] PjwvdGFibGU+ZAXaIq45HjYsLyyoSCz0FbluxLBnvU9= PROGESTERONE LC Collected: 05/21/2024 2:30 PM Status : F Source: [facility] TYPE CODE TESTS RESULT OUT OF RANGE REFERENCE UNITS LAB 13518125(LOINC ) Progesterone LC 7.6 Unknown ng/mL Result Comment: Follicular p hase 0.1 - 0.9 Luteal phase 1.8 - 23.9 Ovulation phase 0.1 - 12.0 First trimester 11.0 - 44.3 Second trimester 25.4 - 83.3 Third trimester 58.7 - 214.0 Postmenopausal 0.0 - 0.1 Performed At: [facility] [address] [id number] J Luis Gray PhD Ph:[phone] Performed By: #### [id number] #### [facility] (DEFAULT) [address] [place] [address] PROVIDER ORDERS Observed: 05/21/2024 2:21 PM Status: F Source: [facility] [id number]#1.00OTGTIFF PROGRESS Observed: 05/09/2024 8:12 AM Status: COMPLETED Source: [facility] HNO ID: [id number] Author: SHELLY HERNANDEZ APRN.CNP Service: ? 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 C TRACH+GC DNA SPEC QL AC+PROBE Collected: 04/02/2024 4:47 PM Status: F Source: [facility] Order Comment: Specimen Type : URINE SPECIMEN Ordering Facility: [facility] Address: [address] [place] [address] TYPE CODE TESTS RESULT OUT OF RANGE REFERENCE UNITS LAB 25853-3(INC) N gonorrhoea rRNA Spec Ql AC+probe Not detected Not detected LAB 77929-9(INC) C trach rRNA Spec Ql AC+probe Not detected Not detected Performed By: #### [id number] # ### [facility] CLIA [id number] [address] [place] [address] [place] DEPRECATED HGB A1C BLD Collected: 04/02 3:21 PM Status: F Source: [facility] Order Comment: Specimen Type : BLOOD SPECIMEN Ordering Facility: [facility] Address: [address] [place] [address] TYPE CODE TESTS RESULT OUT OF RANGE REFERENCE UNITS LAB 4548-4(INC) HbA1c MFr Bld 4.6 4.3-5.6 % Result Comment: [employer] guidelines indicate that patients with HgbA1c in the range 5.7-6.4% are at increased risk for development of diabetes, and intervention by lifestyle modification may be beneficial. HgbA1c greater or equal to 6.5% is considered diagnostic of diabetes. LAB 58377-4(INC) Est. average glucose Bld gHb Est-mCnc 85 mg/dL Result Comment: eAG: (Estima terry average glucose) is a calculated value from HgbA1c and is product representative of the average blood glucose level in the last 2-3 month period. Performed By: #### 47970-5 # ### [facility] CLIA [id number] [address] [place] [address] [place] TYPE + SCREEN Collected: 04/02/2024 3:21 PM Status: F Source: [facility] Order Comment: Specimen Type : BLOOD SPECIMEN Ordering Facility: [facility] Address: [address] [place] [address] TYPE CODE TESTS RESULT OUT OF RANGE REFERENCE UNITS LAB [id number] ABO A LAB 2937236351 RH Positive LAB [id number] ANTIBODY SCREEN Negative LAB [id number] TYPE AND SCREEN EXPIRATION 04/05/2024 23:59 Performed By: #### TSPN #### [facility] CLIA [id number] [address] [place] [address] [place] CARRIER SCREEN, EXPANDED Collected: 04/02/2024 3:21 P M Status: F Source: [facility] Order Comment: Specimen Type : BLOOD SPECIMEN Ordering Facility: [facility] Address: [address] [place] [address] TYPE CODE TESTS RESULT OUT OF RANGE REFERENCE UNITS LAB [id number] CARRIER SCREEN RESULTS View results in Scanned Documents link when available. Performed By: #### CRSNEX ## ## [facility] CLIA [id number] [address] [place] [address] CMV IGG SERPL-ACNC Collected: 04/02/2024 3:21 PM Sta tus: F Source: [facility] Order Comment: Specimen Type : BLOOD SPECIMEN Ordering Facility: [facility] Address: [address] [place] [address] TYPE CODE TESTS RESULT OUT OF RANGE REFERENCE UNITS LAB CMVGQL CMV IGG QUAL Negative Negative Result Comment: No serologic al evidence of past exposure to Cytomegalovirus. Cannot exclude recent infection if the specimen collected within 4-6 weeks after infection. LAB 7852-7(LOINC) CMV IgG SerPl-aCnc <0.20 U/mL Result Comment: The magnitud e of the measured result is not indicative of the amount of antibody present. U/mL values are interpreted as follows: Negative <0.6 Equivocal 0.6 to <0.70 Positive >=0.70 Performed By: #### 1989-3, V ZVG2, 7852-7, RUBRAEANNG, 7853-5 #### [facility] CLIA [id number] [address] [place], [place] [address]K [id number] [place] [address] [place] CMV IGM SERPL-ACNC Collected: 04/02/2024 3:21 PM Sta tus: F Source: [facility] Order Comment: Specimen Type : BLOOD SPECIMEN Ordering Facility: [facility] Address: [address] [place] [address] TYPE CODE TESTS RESULT OUT OF RANGE REFERENCE UNITS LAB CMVMR CMV IGM, QUAL Negative Negative Result Comment: No serologic al evidence of recent exposure to Cytomegalovirus. Performed By: #### 1988-06, Rodney WILCOX, 7852-7, RIO 7853-5 #### [facility] CLIA [id number] [address] [place] [address] [place] RUBELLA IGG ANTIBODY Collected: 04/02/2024 3:21 PM S tatus: F Source: [facility] Order Comment: Specimen Type : BLOOD SPECIMEN Ordering Facility: [facility] Address: [address] [place] [address] TYPE CODE TESTS RESULT OUT OF RANGE REFERENCE UNITS LAB RUBGQL RUBELLA IGG AB, QUAL Positive Positive Result Comment: The result s uggests recent or past exposure to Rubella virus or history of Rubella vaccination. Positive result may also be seen due to presence of passively-transferred antibodies. Please correlate with patient's history. Performed By: #### 1988-06Rodney, 7852, RIO 7853- #### [facility] CLIA [id number] [address] [place] [address] [place] 25(OH)D3 SERPL-MCNC Collected: 04/02/20 3:21 PM Status: F Source: [facility] Order Comment: Specimen Type : BLOOD SPECIMEN Ordering Facility: [facility] Address: [address] [place] [address] TYPE CODE TESTS RESULT OUT OF RANGE REFERENCE UNITS LAB 1988-06(LOINC) 25(OH)D3 SerPl-nc 28.8 Low 31.0-80.0 ng/mL Result Comment: Classificati on of 25 [place] Vitamin D status: Deficiency/Insufficiency: < or = 30 ng/ml. Sufficiency/Optimal Levels: 31-80 ng/mL Toxicity: > 100 ng/mL. Test performed by chemiluminescent immunoassay. Performed By: #### 1988-06, Rodney WILCOX, 7852-, RIO 7853-5 #### [facility] CLIA [id number] [address] [place] [address] [place] VARICELLA ZOSTER IGG Collected: 04/02/2024 3:21 PM S tatus: F Source: [facility] Order Comment: Specimen Type : BLOOD SPECIMEN Ordering Facility: [facility] Address: [address] [place] [address] TYPE CODE TESTS RESULT OUT OF RANGE REFERENCE UNITS LAB VZVGQL VARICELLA ZOSTER IGG, QUAL Positive Positive Result Comment: The result s uggests recent or past exposure to Varicella-Zoster virus or chickenpox vaccination or zoster vaccination. Positive result may also be seen due to presence of passively-transferred antibodies. Please correlate with patient's history. Performed By: #### 1989-3, V ZVG2, 7852-7, RUBRAEANNG, 7853-5 #### [facility] CLIA [id number] [address] [place] [address] [place] HCV AB SER QL Collected: 04/02/2024 3:21 PM Status: F Source: [facility] Order Comment: Specimen Type : BLOOD SPECIMEN Ordering Facility: [facility] Address: [address] [place] [address] TYPE CODE TESTS RESULT OUT OF RANGE REFERENCE UNITS LAB 94654-0(LOINC) HCV Ab Ser Ql Negative Negative Result Comment: The result s uggests no evidence of active infection with Hepatitis C virus. Should recent infection be suspected, repeat testing may be considered 4- 6 weeks after this draw. Performed By: #### 53895-9 # ### [facility] CLIA [id number] [address] [place] [address] [place] HBV SURFACE AG SER QL Collected: 04/02/2024 3:21 PM Status: F Source: [facility] Order Comment: Specimen Type : BLOOD SPECIMEN Ordering Facility: [facility] Address: [address] [place] [address] TYPE CODE TESTS RESULT OUT OF RANGE REFERENCE UNITS LAB 5195-3(LOINC) HBV surface Ag Ser Ql Negative Negative Performed By: #### 5195-3, 7 3752-8, 13684-1, 17900-3 #### [facility] CLIA [id number] [address] [place] [address] [place] HIV1+2 AB SERPL QL IA Collected: 2023 3:21 PM Status: F Source: [facility] Order Comment: Specimen Type : BLOOD SPECIMEN Ordering Facility: [facility] Address: [address] [place] [address] TYPE CODE TESTS RESULT OUT OF RANGE REFERENCE UNITS LAB 02012-8([facility]) HIV 1+2 Ab+HIV1 p24 Ag SerPl Ql IA Nonreactive Nonreactive LAB 60985-0([facility]) HIV 1 AND 2 Ab SerPlBld IA.rapid Result Comment: Test not ind icated. LAB 71298-4([facility]) HIV IA algorithm interp SerPlBld-Imp Result Comment: No evidence of HIV-1 or HIV-2 infection. Should recent infection be suspected, repeat testing may be considered 2-3 weeks after this draw. [place] Rev. Code 3701.243(E): This information has been [...] test results or diagnoses. Performed By: #### 5195-3, 7 3752-8, 66363-4, 96918-0 #### [facility] CLIA [id number] [address] [place] [address] [place] HBV CORE AB SER QL Collected: 04/02/2024 3:21 PM Sta tus: F Source: [facility] Order Comment: Specimen Type : BLOOD SPECIMEN Ordering Facility: [facility] Address: [address] [place], [place] [address] TYPE CODE TESTS RESULT OUT OF RANGE REFERENCE UNITS LAB 78749-0([facility]) HBV core Ab Ser Ql Negative Negative Result Comment: No evidence of current or past infection with Hepatitis B virus. Should recent infection be suspected, repeat testing may be considered 3-4 weeks after this draw. Performed By: #### 5195-3, 7 3752-8, 83729-0, 13677-0 #### [facility] CLIA [id number] [address] [place] [address] [place] REAGIN+T PALLIDUM IGG+IGM SERPL-IMP Collected: 04/02/2024 3:21 PM Status: F Source: [facility] Order Comment: Specimen Type : BLOOD SPECIMEN Ordering Facility: [facility] Address: [address] [place] [address] TYPE CODE TESTS RESULT OUT OF RANGE REFERENCE UNITS LAB 16715-3(LOINC) T pallidum IgG+IgM Ser Ql [place] Nonreactive Nonreactive LAB 78858-1(LOINC) Reagin+T pallidum IgG+IgM SerPl-Imp Cannot exclude recent Treponemal infection if specimen collected within 7-10 days after appearance of suspect lesions or 2-3 weeks after an exposure. Clinical correlation is required. Performed By: #### 5195-3, 7 3752-8, 02817-8, 12290-5 #### [facility] CLIA [id number] [address] [place] [address] [place] CODING SUMMARY Observed: 03/20/2024 9:52 AM Status: F Source: [facility] HTMLBase 64 CfmpyczbFGp0rSz+PGhlYWQ+OJ3IZDRkW29jwJVrpT4rF2JESPiTHeyiOUUTTMtRYiRdsbNjER1ekDOl ZXJu [file] YmxlPjxici8+ETIsOe40U1Uknp50R8a3pIi+ PROGRESS Observed: 03/11/2024 10:42 PM Status: COMPLETED Source: [facility] HNO ID: [id number] Author: SHELLY HERNANDEZ APRN.JARROD Service: ? Author [...] Practice cycle Plan: Episode created.Reviewed checklist - Ascletist message sent Practice cycle: recommended OPKs to test for ovulation and timing of IUIs, patient to call with +OPK, confirm ovulation with progesterone level Follow up once checklist is complete to discuss test results and next steps. Shelly Hernandez APRN.LEAD ANDROID DEVELOPER March 11, 2024 10:42 PM I spent a total of 55 minutes on the date of the service which included preparing to see the patient, vuwa-oi-fkie patient care, completing clinical documentation, obtaining and/or [...] grammatical and typographical errors missed in proofreading. PROVIDER ORDERS Observed: 03/06/2024 11:44 AM Status: F Source: [facility] [id number] IRON LEVEL Collected: 4 2:32 PM Status: F Source: [facility] TYPE CODE TESTS RESULT OUT OF RANGE REFERENCE UNITS LAB 4028617([facility]) Iron Level 61.0 28.0-170.0 mcg /dL Performed By: #### [id number] # ### [facility] (DEFAULT) [address] [place] [address] CBC W/ AUTO DIFF Collected: 4 2:26 PM Status: F Source: [facility] TYPE CODE TESTS RESULT OUT OF RANGE REFERENCE UNITS LAB 9393415(LOINC) Man Diff? Auto Unknown LAB 4184848(LOINC) WBC 9.6 3.5-10.5 x10 LAB 7120746(LOINC) RBC 5.28 3.70-5.30 x10 LAB 5104630(LOINC) Hgb 15.5 11.3-15.9 gm/dL LAB 8252458(LOINC) Hct 45.3 High 33.7-40.4 % LAB 3646842(LOINC) MCV 86 81-100 fL LAB 2698563(LOINC) MCH 29 24-34 pg LAB 3554502(LOINC) MCHC 34 26-37 gm/dL LAB 8659817(LOINC) RDW 13.9 11.5-15.0 % LAB 9827665(LOINC) Platelet 213 138-427 x10 LAB 0905132(LOINC) MPV 6.8 6.3-10.2 fL Performed By: #### [id number], 5283468, 2035718 #### [facility] (DEFAULT) [address] [place] [address] .AUTO DIFF 1 Collected: 02/29/2024 2:26 PM Status: F Source: [facility] TYPE CODE TESTS RESULT OUT OF RANGE REFERENCE UNITS LAB 8311029(LOINC) Auto Neut % 81 44-88 % LAB 5271038(LOINC) Auto Lymph % 16 14-48 % LAB 5654037(LOINC) Auto [place] % 3 1-12 % LAB 4619090(LOINC) Auto Eos % 0.1 Low 0.9-4.0 % LAB 6019245(LOINC) Auto Baso % 0.3 0.2-2.0 % LAB 4639138(LOINC) Neut Abs# 7.8 1.5-9.2 x10 LAB 8508076(LOINC) Lymph Abs# 1.5 1.3-2.9 x10 LAB 1975162(LOINC) [place] Abs# 0.3 0.0-0.8 x10 LAB 1712143(LOINC) Eos Abs# 0.0 0.0-0.4 x10 LAB 1389871(LOINC) Baso Abs# 0.0 0.0-0.2 x10 Performed By: #### [id number], [id number], 9692549 #### [facility] (DEFAULT) [address] [place] [address] FERRITIN Collected: 2:26 PM Status: F Source: [facility] TYPE CODE TESTS RESULT OUT OF RANGE REFERENCE UNITS LAB 2691668(INC) Ferritin 20.6 12.0-150.0 ng/mL Performed By: #### [id number], 1980585, 3241912 #### [facility] (DEFAULT) [address] [place] [address] [id number] Observed: 02/28/2024 2:59 PM Status: COMPLETED Source: [facility] HNO ID: [id number] Author: IGNACIO GUY MD Service: ? Author Type: Physician Type: [id number] Filed: 03/08/2024 20:45 Note Text: Assessment- male [...] for three cycles. They will meet with MARKER HAND to review the IUI checklist and sign consents. I spent a total of 45 minutes on the date of the service which included preparing to see the patient, dkdr-my-wixs patient care, completing clinical documentation, counseling and educating the patient/family/caregiver, and ordering medications, tests, or procedures. Ignacio Guy MD PROGRESS Observed: 02/28/2024 2:17 PM Status: COMPLETED Source: [facility] ID: [id number] Author: IGNACIO GUY MD Service: ? 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 They will meet with MARKER HAND to review the IUI checklist and sign consents. I spent a total of 45 minutes on the date of the service which included preparing to see the patient, aath-ac-mqjk patient care, completing clinical documentation, counseling and educating the patient/family/caregiver, and ordering medications, tests, or procedures. 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 They will meet with MARKER HAND to review the IUI checklist and sign consents. I spent a total of 45 minutes on the date of the service which included preparing to see the patient, uccg-jy-ftvd patient care, completing clinical documentation, counseling and educating the patient/family/caregiver, and ordering medications, tests, or procedures. MD Brooks Joseph Marjan, MD 02/28/2024 2:47 PM Signed Dear Jaz Sanders Using donor sperm at the [facility] requires some set up (outlined below). Requirements to use donor sperm at the [facility]: Teaching with [email or web address] SKYLAR - please call [phone] to schedule a donor sperm teach with [...] to help with the donor selection process. iCook.tw Carrier Screen is the test ordered. Processing time takes 2-3 weeks. If your insurance doesn't cover it, the self-pay de oliveira is ~$250. Counselor You and your partner/spouse (if applicable) must see a counselor for a donor sperm assessment. Amanda Gillespie MD ([place]) - [phone] Rani Sims ([place] [facility] [place]) - [phone] Doris Lama ([place]) - [phone] Consent form - must be signed by [...] your treatment plan during your teaching appointment. - Codes for Required Tests Test: CPT Code: Blood type 84442 HIV 51267 CMV IgG 86994 CMV IgM 10540 Syphilis 96916 Hepatitis B Surface Ag 99349 Hepatitis B Core Ab, IgG and IgM 65019 Hepatitis C Ab 54674 Rubella 24281 Varicella 66313 Chlamydia 22244 Gonorrhea 82474 For the above tests, reference the diagnosis code of Z31.49. [employer] Foresight Carrier Screen - [employer] will check coverage for you. For this [...] your test results into consideration. [facility] [place] [facility] ([place]) [facility] [place] [facility] [place] [facility] [employer] ([facility] [place]) [place] [facility] *Do not order any sperm until your checklist is complete. We will review ordering instructions at your follow up visit. Next Steps: Call insurance to verify coverage for donor sperm panel. Schedule donor sperm teach with my nurse practitioner, Silvia Hernandez. 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 rates discussed and use of meds vs natural cycle was discussed. Given her periods are regular I would recommend timed IUI for now and hol ff on the HSG for three cycles. They will meet with MARKER HAND to review the IUI checklist and sign consents. I spent a total of 45 minutes on the date of the service which included preparing to see the patient, sdmc-rn-kdzk patient care, completing clinical documentation, counseling and educating the patient/family/caregiver, and ordering medications, tests, or procedures. 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 Problem List As Of Date: 02/28/2024 (None) Other instructions from your clinician: Dear Jaz Sanders Using donor sperm at the [facility] requires some set up (outlined below). Requirements to use donor sperm at the [facility]: Teaching with JAMEL SKYLAR - please call [phone] to schedule a donor sperm teach with [...] to help with the donor selection process. iCook[employer]tw Carrier Screen is the test ordered. Processing time takes 2-3 weeks. If your insurance doesn't cover it, the self-pay de oliveira is ~$250. Counselor You and your partner/spouse (if applicable) must see a counselor for a donor sperm assessment. Amanda Gillespie MD ([place]) - [phone] Rani Sims ([facility]) - [phone] Doris Lama ([place]) - [phone] Consent form - must be signed by [...] Required Tests Test: CPT Code: Blood type 70874 HIV 81095 CMV IgG 55810 CMV IgM 53333 Syphilis 16503 Hepatitis B Surface Ag 28098 Hepatitis B Core Ab, IgG and IgM 83737 Hepatitis C Ab 14544 Rubella 98485 Varicella 36280 Chlamydia 78796 Gonorrhea 31995 For the above tests, reference the diagnosis code of Z31.49. [employer] Foresight Carrier Screen - [employer] will check coverage for you. For this [...] your test results into consideration. [facility] [place] [facility] ([place]) [facility] ([facility] [place]) [place] [facility] *Do not order any sperm until your checklist is complete. We will review ordering instructions at your follow up visit. Next Steps: Call insurance to verify coverage for donor sperm panel. Schedule donor sperm teach with my nurse practitioner, Silvia Hernandez. Ignacio Guy MD [phone] Encounter Status:Closed by IGNACIO GUY on 03/08/24 CODING SUMMARY Observed: 02/20/2024 2:29 PM Status: F Source: [facility] HTMLBase 64 CgjsksffCXf5sOa+PGhlYWQ+[id number]WgLEtAoehKtUE3tqZLp ZXJu [file] dG1sPg== CBC W/ AUTO DIFF Collected: 4 3:00 PM Status: F Source: [facility] TYPE CODE TESTS RESULT OUT OF RANGE REFERENCE UNITS LAB 3847417(INC) Man Diff? Auto Unknown LAB 6468808(LOINC) WBC 7.1 3.5-10.5 x10 LAB 0168650(LOINC) RBC 4.84 3.70-5.30 x10 LAB 9806920(LOINC) Hgb 14.1 11.3-15.9 gm/dL LAB 4347158(LOINC) Hct 41.7 High 33.7-40.4 % LAB 3805924(INC) MCV 86 81-100 fL LAB 2708827(INC) MCH 29 24-34 pg LAB 8228480(INC) MCHC 34 26-37 gm/dL LAB 5803924(INC) RDW 14.0 11.5-15.0 % LAB 6784555(INC) Platelet 196 138-427 x10 LAB 2285390([facility]) MPV 6.8 6.3-10.2 fL Performed By: #### [id number], [id number], 6628286, [id number] #### [facility] (DEFAULT) [address] [place] [address]678 .AUTO DIFF 1 Collected: 02/06/2024 3:00 PM Status: F Source: [facility] TYPE CODE TESTS RESULT OUT OF RANGE REFERENCE UNITS LAB 7226114(INC) Auto Neut % 56 44-88 % LAB 0078726(INC) Auto Lymph % 34 14-48 % LAB 1228915(INC) Auto [place] % 6 1-12 % LAB 0992227(INC) Auto Eos % 3.4 0.9-4.0 % LAB 8295117(INC) Auto Baso % 0.3 0.2-2.0 % LAB 1548040(INC) Neut Abs# 4.0 1.5-9.2 x10 LAB 2727225(INC) Lymph Abs# 2.4 1.3-2.9 x10 LAB 3151952(INC) [place] Abs# 0.4 0.0-0.8 x10 LAB 6376172(INC) Eos Abs# 0.2 0.0-0.4 x10 LAB 8128933(INC) Baso Abs# 0.0 0.0-0.2 x10 Performed By: #### [id number], 89722756, 3721153, 3634296 #### [facility] (DEFAULT) [address] [place] [address] IRON PROFILE Collected: 3:00 PM Status: F Source: [facility] TYPE CODE TESTS RESULT OUT OF RANGE REFERENCE UNITS LAB 5433047([facility]) TIBC 384 250-400 mcg/dL LAB 0646373(INC) Iron Sat 19 Low 20-55 % LAB 1510602([facility]) Iron Level 72.0 28.0-170.0 mcg /dL LAB 2983009([facility]) Transferrin 274.6 192.0-382.0 m g/dL Performed By: #### 83730804, 82004879, 1357076, 7212845 #### [facility] (DEFAULT) [address] [place], [place] [address] FERRITIN Collected: 3:00 PM Status: F Source: [facility] TYPE CODE TESTS RESULT OUT OF RANGE REFERENCE UNITS LAB 3209468([facility]) Ferritin 15.8 12.0-150.0 ng/mL Performed By: #### 00691255, [id number], 9318669, 6472129 #### [facility] (DEFAULT) [address] [place] [address]9685 CODING SUMMARY Observed: 10/26/2023 12:48 PM Status: F Source: [facility] HTMLBase 64 ZglqszvfAUy9vRf+PGhlYWQ+CC7FWLAiW93dkNFazT9vD4AMSPqTMxjoJWXHTJpRXhTpfcFfAH6cuCMu ZXJu [file] bTwvdGQ+[id number]+SKEmOp69G5Psor60Z2u6mMy+ PATIENT HANDOUT Observed: 09/21/2023 2:06 PM Status: F Source: [facility] Education [employer] Hematology Iron Deficiency Anemia, Adult Iron deficiency anemia is a condition in which the concentration of red blood cells or hemoglobin in the blood is below normal because of too little iron. Hemoglobin is a substance in red blood cells that carries oxygen to the body's tissues. When the concentration of red blood cells or hemoglobin is too low, not enough oxygen reaches these tissues. Iron deficiency anemia is usually long-lasting, and it develops over time. It may or may not cause symptoms. It is a common type of anemia. What are the causes? This condition may be caused by: ? Not enough iron in the diet. ? Abnormal absorption in the gut. ? Blood loss. What increases the risk? You are more likely to develop this condition if you get menstrual periods (menstruate) or are . What are the signs or symptoms? Symptoms of this condition may include: ? Pale skin, lips, and nail beds. ? Weakness, dizziness, and getting tired easily. ? Shortness of breath when moving or exercising. ? Cold hands or feet. Mild anemia may not cause any symptoms. How is this diagnosed? This condition is diagnosed based on: ? Your medical history. ? A physical exam. ? Blood tests. How is this treated? This condition is treated by correcting the cause of your iron deficiency. Treatment may involve: ? Adding iron-rich foods to your diet. ? Taking iron supplements. If you are or , you may need to take extra iron because your normal diet usually does not provide the amount of iron that you need. ? Increasing vitamin C intake. Vitamin C helps your body absorb iron. Your health care provider may recommend that you take iron supplements along with a glass of orange juice or a vitamin C supplement. ? Medicines to make heavy menstrual flow blanket weaver. ? Surgery or additional testing procedures to determine the cause of your anemia. You may need repeat blood tests to determine whether treatment is working. If the treatment does not seem to be working, you may need more tests. Follow these instructions at home: Medicines ? Take dnys-omt-suppbjd and prescription medicines only as told by your health care provider. This includes iron supplements and vitamins. This is important because too much iron can be harmful. ? For the best iron absorption, you should take iron supplements when your stomach is empty. If you cannot tolerate them on an empty stomach, you may need to take them with food. ? Do not drink milk or take antacids at the same time as your iron supplements. Milk and antacids may interfere with how your body absorbs iron. ? Iron supplements may turn stool (feces) a darker color and it may appear black. ? If you cannot tolerate taking iron supplements by mouth, talk with your health care provider about taking them through an IV or through an injection into a muscle. Eating and drinking ? Talk with your health care provider before changing your diet. Your provider may recommend that you eat foods that contain a lot of iron, such as: ? Liver. ? Low-fat (lean) beef. ? Breads and cereals that have iron added to them (are fortified). ? Eggs. ? Dried fruit. ? Dark green, leafy vegetables. ? To help your body use the iron from iron-rich foods, eat those foods at the same time as fresh fruits and vegetables that are high in vitamin C. Foods that are high in vitamin C include: ? Oranges. ? Peppers. ? Tomatoes. ? Mangoes. Managing constipation If you are taking an iron supplement, it may cause constipation. To prevent or treat constipation, you may need to: ? Drink enough fluid to keep your urine pale yellow. ? Take pthv-htj-ifeiash or prescription medicines. ? Eat foods that are high in fiber, such as beans, whole grains, and fresh fruits and vegetables. ? Limit foods that are high in fat and processed sugars, such as fried or sweet foods. General instructions ? Return to your normal activities as told by your health care provider. Ask your health care provider what activities are safe for you. ? Keep all follow-up visits. Contact a health care provider if: ? You feel nauseous or you vomit. ? You feel weak. ? You become light-headed when getting up from a sitting or lying down position. ? You have unexplained sweating. ? You develop symptoms of constipation. ? You have a heaviness in your chest. ? You have trouble breathing with physical activity. Get help right away if: ? You faint. If this happens, do not drive yourself to the hospital. ? You have an irregular or rapid heartbeat. Summary ? Iron deficiency anemia is a condition in which the concentration of red blood cells or hemoglobin in the blood is below normal because of too little iron. ? This condition is treated by correcting the cause of your iron deficiency. ? Take gqkt-ihz-exmthtp and prescription medicines only as told by your health care provider. This includes iron supplements and vitamins. ? To help your body use the iron from iron-rich foods, eat those foods at the same time as fresh fruits and vegetables that are high in vitamin C. ? Seek medical help if you have signs or symptoms of worsening anemia. This information is not intended to replace advice given to you by your health care provider. Make sure you discuss any questions you have with your health care provider. Document Revised: 05/12/2022 Document Reviewed: 05/12/2022 Build[employer]ax Patient Education ? 2022 [employer]. PROVIDER ORDERS Observed: 09/21/2023 7:27 AM Status: F Source: [facility] [id number]#1.00OTGTIFF ALLERGIES DATE TYPE / CODE NAME / CODE REACTION SEVERITY SOURCE 12/02/2024 Drug Allergy/4160 50717(SNOMED CT) NSAIDS (Non-Steroidal Anti-Inflamma/F00 8923320(RXNORM) Instructed not to take NSAIDS by PCP d/t weight loss surgery Unknown [facility] 10/26/2024 Drug Class/209858 003(SNOMED CT) NSAIDS (NON-STEROIDAL ANTI-INFLAMMATORY DRUG) [facility] Drug/4339681 03(SNOMED CT) NSAIDs Moderate [facility] SYSTEMIC/420 296129(SNOME D CT) ALLERGIES NOT ON FILE [facility] Ambulatory ENCOUNTERS ADMIT/DISCHARGE ACCOUNT NUMBER ADMITTING ENCOUNTER CLASS LOCATION SOURCE 01/03/2025/01/04/20 [id number] Ambulatory Buildin 01 [facility]ulatory [facility] 12/19/2024/12/20/19 [id number] Ambulatory Building:NOM S BCP OB [facility] 12/05/2024/12/06/19 [id number] Ambulatory Buildin 4 [facility] 12/05/2024/12/06/19 [id number] Ambulatory Building:PTH _MFMUS [facility] 12/04/2024/12/05/19 [id number] Ambulatory Building:NOM S BCP OB [facility] 12/02/2024/12/04/19 25 [id number] Eduardo Cruz [facility]E3Room: [id number] [facility] 11/30/2024/12/01/19 [id number] [facility] 11/20/2024/11/21/19 [id number] Ambulatory Building:NOM S BCP OB [facility] 10/22/2024/10/23/19 25 [id number] Ambulatory Building:NOM S BCP OB [facility] 10/18/2024/10/19/19 25 [id number] Kassidy Arriaza [facility] 09/26/2024/09/27/19 25 [id number] BASIM [place] [facility] 09/20/2024/09/21/19 [id number] Ambulatory Building:NOM S BCP OB [facility] EPIC 09/20/2024/09/21/19 25 [id number] Ambulatory Building:NOM S BCP OB [facility] EP[facility] 09/03/2024/09/04/19 25 [id number] Ambulatory [facility] HospitalBuil ding:MARIBEL [facility] 08/28/2024/08/29/19 25 [id number] Ambulatory [facility] HospitalBuil ding:ZION [facility] 08/22/2024/08/23/19 [id number] Ambulatory Building:[facility] 08/20/2024/08/21/19 [id number] Ambulatory [facility] HospitalBuil ding:ZION [facility] 08/17/2024/08/18/19 25 [id number] [facility]ulatory [facility] 08/15/2024/08/16/19 25 [id number] Shelly Hernandez Ambulatory [facility] 08/13/2024/08/14/19 25 [id number] Shelly Hernandez Ambulatory [facility] 07/31/2024/08/01/19 25 [id number] Ambulatory [facility] 07/31/2024/08/01/19 25 [id number] Ambulatory [facility] HospitalBuil ding:BENEDICT [facility] 07/25/2024/07/26/19 25 [id number] Amb[facility]/07/[facility]07/08/19 25 [id number] Ambulatory [facility] HospitalBuil ding:ZION [facility] 07/07/2024/07/08/19 25 [id number] Ambulatory [facility] HospitalBuil ding:BENEDICT [facility] 07/04/2024/07/05/19 25 [id number] Ambulatory [facility]il ding[facility] 07/02/2024/07/03/19 25 [id number] Ambulatory [facility] ding[facility] 06/29/2024/06/30/19 25 [id number] Ambulatory [facility]il ding:[facility] 06/09/2024/06/09/19 25 [id number] Ambulatory [facility] HospitalBuil ding:BEJANETH [facility] 06/09/2024/06/09/19 25 [id number] Ambulatory [facility] HospitalBuil ding:BENEDICT [facility] 05/21/2024/05/21/19 [id number] Shelly Hernandez [facility] 05/18/2024/05/18/19 25 [id number] Ambulatory [facility] 05/09/2024/05/09/19 25 [id number] Ambulatory [facility] ding[facility] 05/02/2024/05/02/19 25 [id number] Ambulatory Building:[address] 04/24/2024/04/24/19 [id number] Ambulatory [facility]il ding[facility] 04/02/2024/04/02/20 24 [id number] [facility] 03/09/2024/03/09/20 24 [id number] Ambulatory [facility]Buil ding[facility] 02/29/2024/02/29/20 24 [id number] Ambulatory [facility] HospitalBuil ding:[facility] 02/28/2024/02/28/20 24 [id number] Ambulatory [facility]Buil ding:[facility] 02/20/2024/02/20/20 24 [id number] [facility] 09/20/2023 [id number] Jojo Ruff Ambulatory [facility] FUNCTIONAL STATUS No Functional Status Records Found EQUIPMENT No Equipment Records Found PAYERS ENCOUNTER GUARANTOR PAYER SUBSCRIBER SOURCE 01/03/2025 JAZ HAYWOOD: [id number] [place] [address]Eag: () Primary Insurance:[facility] MEDICAIDPolicy Number: [id number] Date:2022-05-19 JAZ CHASTITY: [id number] [place], [place] [address]Idj: (HP) [facility] 12/19/2024 JAZ JON SOTOB: [address] [place], [place] [address]Rvp: (HP) Primary Insurance:[employer] BCBS MEDICAID [place]: [id number] Date:2022-05-19 JAZ JON HAYWOOD: [id number] [place] [address] [facility] 12/05/2024 JAZ CHASTITY: [address], [place] [address]Ryt: (HP) Primary Insurance:[place] MEDICAIDPolicy Number: [id number] Date:2022-05-19 JAZ CHASTITY: [id number] [place], [place] [address]Vdn: (HP) [facility] 12/05/2024 JAZ CHASTITY: [address], [place] [address]Xhc: (HP) Primary Insurance:[place] MEDICAIDPolicy Number: [id number] Date:2022-05-19 JAZ CHASTITY: [id number] [address] [place], [place] [address]Ljj: (HP) [facility] 12/04/2024 JAZHER JON HAYWOOD: [address] [place] [address]Pkb: (HP) Primary Insurance:[employer] BCBS MEDICAID [place] Number: [id number] Date:2022-05-19 JAZ HAYWOOD: [id number] [address] [facility] [address] [facility] EPIC 12/02/2024 Jaz Sanders[address] [place] [address]End: (HP) Primary Insurance:Anthem [place] MedicaidPolicy Number: [id number] Date:8210-27-06[address] [address]XU: Jaz Gregory Chastity: [id number] [place] [address]Lha: (HP) [facility] 12/02/2024 Secondary Insurance:Self PayPolicy Number: Effective Date:2024-12-02 [facility] 11/30/2024 Jaz [place] [address]Ufk: (HP) Primary Insurance:Self PayPolicy Number: Effective Date:2024-11-30 [facility] 11/20/2024 JAZ HAYWOOD: [address] [facility] [address]Mlu: (HP) Primary Insurance:[facility] MEDICAID [place] Number: [id number] Date:2022-05-19 JAZ HAYWOOD: [id number] [address] [facility] [place] [address] [facility] 10/22/2024 JAZ HAYWOOD: [address] [place], [place] [address]Yqx: (HP) Primary Insurance:[facility] MEDICAID [place]Policy Number: [id number] Date:2022-05-19 JAZ HAYWOOD: [id number] [place] [address] [facility] 10/18/2024 Jaz Sanders[address] [place] [address]Vph: (HP) Primary Insurance:Anthem [place] MedicaidPolicy Number: [id number] Date:8455-48-49[address] [address]YXNMFRYSFORT [place], [place] [address]UX: Jaz Haywood: [id number] [place] [address]Unh: (HP) [facility] 10/18/2024 Secondary Insurance:Self PayPolicy Number: Effective Date:2024-10-18 NOT [facility]IVEN[facility] 09/26/2024 JAZ HAYWOOD: [address]INIFREDIDE [facility] [place], [place] [address]Ito: (HP) Primary Insurance:[place]: [id number] Date:1852-85-76Ivpj Name:Medicaid [place] [address] [place] [address]IY: JAZ HAYWOOD: [id number] [place], [place] [address]Xsc: (HP) () [facility] 09/20/2024 JAZ HAYWOOD: [address] [place], [place] [address]Xxv: (HP) Primary Insurance:[facility] MEDICAID [place] Number: [id number] Date:2022-05-19 JAZ HAYWOOD: [id number] [address] [place] [address] [facility] 09/20/2024 JAZ HAYWOOD: [address] [facility] [address]Nbv: (HP) Primary Insurance:[employer]HEM BCBS MEDICAID [place] Number: [id number] Date:2022-05-19 JAZ WEBB CHARLESB: [id number]LA[address] [facility] [place] [address] [facility] 09/03/2024 Primary Insurance:[employer]HEM BCBS MEDICAID OF [place] Number: [id number] Date:5803-94-61Nljq Name:Marcos SANDERSB: [id number] [place] [address] [facility] 08/28/2024 Primary Insurance:[place]HEM BCBS MEDICAID OF [place] Number: [id number] Date:4121-37-21Vzow Name:Marcos SAVAGEKARYN: [id number] [place] [address] [facility] 08/22/2024 JAZ WEBB CHARLESB: [address] [facility] [address]Nus: (HP) Primary Insurance:[employer] BCBS MEDICAID [place] Number: [id number] Date:2022-05-19 JAZ WEBB CHASTITY: [id number] [address] [facility] [place] [address] [facility] 08/20/2024 Primary Insurance:[place]HE[place] BCBS MEDICAID OF [place] Number: [id number] Date:7781-67-95Ocvn Name:Marcos SAVAGEKARYN: [id number] [place] [address] [facility] 08/17/2024 JAZ WEBB CHARLESB: [address]LA[address] [facility], [place] [address]Tlp: (HP) Primary Insurance:MEDICAID [facility] Number: [id number] Date:3475-49-10Ybwh Name:Medicaid [address] [place], [place] [address]RV: JAZ WEBB CHARLESB: [id number] [place], [place] [address]Wup: (HP) () [facility] 08/15/2024 JAZ WEBB CHARLESB: [address], [place] [address]Miz: (HP) Primary Insurance:MEDICAID [facility] Number: [id number] Date:7722-30-70Bvjm Name:Medicaid [address] [place], [place] [address]BS: JAZ WEBB CHARLESB: [id number] [address] [place]DWINIFRED[address] [place], [place] [address]Fyy: (HP) (WP) [facility] 08/13/2024 JAZ WEBB CHARLESB: [address] [place], [place] [address]Rlj: (HP) Primary Insurance:MEDICAID [facility] Number: [id number] Date:9526-53-46Xqxk Name:Medicaid [address] [place], [place] [address]GB: JAZ WEBB CHARLESB: [id number] [place], [place] [address]Mps: (HP) () [facility] 07/02/2024 Primary Insurance:[place] BLANK MEDICAID [facility] Number: [id number] Date:5317-30-07Kyuc Name:Marcos HAYWOOD: [id number] [place] [address] [facility] 06/29/2024 Primary Insurance:[place]HE[place] BCBS MEDICAID OF [place] Number: [id number] Date:9957-15-55Fsfy Name:Marcos SANDERSARELY: [id number] [place] [address] [facility] 05/21/2024 JAZ ELIASZABETH CHARLESB: [address] [place], [place] [address]Xle: (HP) Primary Insurance:MEDICAID [facility] Number: [id number] Date:2936-28-21Bond Name:Medicaid [address], [place] [address]WO: JAZ WEBB CHARLESB: [id number] [place], [place] [address]Aor: (HP) () [facility] 05/18/2024 Primary Insurance:[place]HE[place] BCBS MEDICAID OF [place] Number: [id number] Date:2841-21-75Zvcz Name:Marcos Gregory CHASTITY: [id number] [place] [address] [facility] 05/02/2024 JAZ CHARLESB: SOUTH MACKLEPRASAD SANCHEZABRAZO ARIZONA HEART HOSPITALGISELG[place]LETT[place], [place] [address]Ywg: (HP) Primary Insurance:ANTHEM MEDICAIDPolicy Number: [id number] Date:2022-05-19 JAZ SAVAGEESTEPHANIAB: [id number] [address] [place], [place] [address]Yfb: () [facility] 04/24/2024 Primary Insurance:[facility] MEDICAID [facility] Number: [id number] Date:2979-45-55Hhvx Name:Marcos Gregory CHASTITY: [id number] [place] [address] [facility] 04/02/2024 Primary Insurance:[facility] MEDICAID [facility] Number: [id number] Date:8959-77-02Ynyg Name:Marcos HAYWOOD: [id number] [place] [address] [facility] 02/29/2024 Primary Insurance:[place]HE[place] BCBS MEDICAID OF [place] Number: [id number] Date:7353-72-27Fsba Name:Marcos HAYWOOD: [id number] [place] [address] [facility] 02/20/2024 JAZ HAYWOOD: [address] [place], [place] [address]Mxk: (HP) Primary Insurance:[place] BCBS MEDICAID [place] Number: [id number] Date:2022-05-19 JAZ HAYWOOD: [id number] [address] [place] [address] [facility] 09/20/2023 JAZ HAYWOOD: [address] [place], [place] [address]Bfj: (HP) Primary Insurance:MEDICAID [facility] Number: [id number] Date:2349-73-25Hkft Name:Medicaid [address], [place] [address]SL: JAZ HAYWOOD: [id number] [address]LA[address] [facility]BLE[facility], [place] [address]Ijw: (HP) () [facility] SOCIAL HISTORY No Social History Records Found FAMILY HISTORY No Family History Records Found ADVANCE DIRECTIVES No Advanced Directives Records Found INFORMATION SOURCE DATE CREATED AUTHOR AUTHOR'S MONTEZ SOTO 01/14/2025 OHIP
[2025-01-11 13:47] VITALS: BP 119/70; PULSE 77
--- OUTSIDE RECORDS SUMMARY | 2025-01-11 13:50 | XMS_ITS | CCD ---
Author Organization [facility] Care Team Providers Care Supervisor Engine Repair Name Role Phone Robin Appiah Primary Care [...] Care Provider DO Jack Easton Emergency Provider [phone] MARYSOL Jett Emergency Provider [phone] MD Lashonda Farhad Admit Provider MD Farhad Gallego Attending Provider [phone] MELY Ford Attending Provider SHARRON Jefferson Attending Provider [phone] Petr Lay Unavailable Romeo Santana Unavailable MELY Ford Primary Care Provider DO Romeo Santana Attending Provider Daxa Ford NPnifer Primary Care Provider Unavailable Rohrbacher HORSE DOCTOR, Amanda Primary Care Provider Romeo Santana DO Attending Provider Rohrbacher COMMERCIAL BAKER HELPER, Amanda A Primary Care Provider Unavailable Primary Care Provider Unavailabl e DAVID, SHELLY G Referring Unavailable Unavailable Primary Care Provider Unavailabl e SAÚL ENRIQUEZ Attending Unavailable Rohrbacher COMMERCIAL BAKER HELPER, Amanda A Primary Care Provider DAVID, [...] Unavailable JUAN, LES R Attending Unavailable Rohrbacher HORSE DOCTOR, Amanda Primary Care Provider Kassidy Arriaza DO Emergency Provider No Pcp, No Pcp Primary Care Provider Unavailabl e Chris Dickerson DO Attending Provider Les Martinez DO Attending Provider Elizabeth Tom Attending Provider Eduardo Cruz DO Attending Provider [phone] JUAN, LES R Referring Unavailable NO PCP, [...] Unavailable DARLEEN SINCLAIR Attending Unavailable DARLEEN SINCLAIR F Referring Unavailable UNIQUE MARTINEZY Attending Unavailable LES MARTINEZ Attending Unavailable UNIQUE MARTINEZY Referring Unavailable JUANUNIQUE KAPLANY Attending Unavailable JOJO DEVLIN Attending Unavailable NO PCP, NO PCP Primary Care Unavailable JUAN, LES R Referring Unavailable Allergies Allergy Classification Reported Allergen(s) Allergy Type Date of Onset Reaction(s) Facility (20 sources) Non-steroidal anti-inflammato ry agent Drug allergy Unknown [employer] Other (20 sources) Non-steroidal anti-inflammato ry agent; Translations: [NSAIDs] Drug Allergy 3 Unknown [facility] Healthcare (1 source) ALLERGIES NOT ON FILE; Translations: [ALLERGIES NOT ON FILE] Propensity to adverse reactions (disorder) [facility] 3 Repository (6 sources) NSAIDs; Translations: [NSAIDS (NON-STEROIDAL ANTI-INFLAMMATO RY DRUG)] Propensity to adverse reactions to drug [facility] (1 source) NSAIDs Drug allergy (disorder) 5 [facility] Repository Medications Current Medications Medication Drug [...] bedtime) for sleep, 60 tab(s), Refill(s) 2, [facility], 182, cm, 07/09/19 13:03:00 [...] QID, # 60 tab(s), Refills(s) 2, Pharmacy: [facility] Start Date: 10/09/18 Status: Ordered lamoTRIgine 200 mg oral tablet (20 sources) Mood Stabilizer, Anti-epileptic Agent Start: 04-10-2022 Lamotrigine Active MG TABLET April 10, 2022 12:00am Start: 01-30-2020 lamotrigine 20 0 mg Tab 300 mg = 1.5 tab(s), Oral, Daily, # 45 tab(s), Refills(s) 5, Pharmacy: [facility], 182, cm, 12/06/19 12:03:00 EDT, [...] qPM, # 90 tab(s), Refills(s) 2, Pharmacy: [facility], 182, cm, 12/06/19 12:03:00 [...] by mouth two times a day. Active [id number] acid ( 19) 29 mg iron- 1 mg tablet,chewable (6 sources) [id number] acid ( 19) 29 mg iron- 1 [...] Start: 03-12-2020 take 2 tablets by mo [facility] at bedtime quetiapine 50 mg oral tablet 100 mg = 2 tab(s), Oral, Bedtime, # 60 tab(s), Refills(s) 5, Pharmacy: [facility], 182, cm, 12/06/19 12:03:00 [...] 1 patch sertraline 25 mg oral tablet (20 sources) Serotonin Reuptake Inhibitor Start: 09-25-2024 take [...] food, # 60 cap(s), Refills(s) 2, Pharmacy: [facility], 182, cm, 12/06/19 12:03:00 [...] anxiety, # 60 tab(s), Refills(s) 1, Pharmacy: [facility], 182, cm, 12/06/19 12:03:00 [...] D2) 1,250 mcg (50,000 unit) capsule Discontinued [id number] UNIT PO every week October 08, 2019 12:00am August 01, 2021 2:19pm Takes on Tuesday Start: 05-25-2019 Vitamin D2 200 0 intl units oral capsule Refills(s) 0 Start Date: 05/25/19 Status: Ordered Start: 01-12-2019 End: 05-08-2020 take 1 capsule by mouth every week vitamin D (ERGOCALCIFEROL) 85050 units CAPS capsule Indications: Vitamin D deficiency [...] and depressive disorder; Translations: [Anxiety disorder, unspecified] 02-23-2023 Chronic Attention-deficit, conduct, and disruptive behavior disorders [...] [Other specified related conditions, second trimester] Onset: Episodic Other complications of (1 source) Bariatric surgery status complicating , unspecified trimester; 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 complicating , unspecified trimester] Onset: Episodic Other complications of (1 source) Endocrine, nutritional and metabolic diseases complicating , second trimester; Translations: [Endocrine, nutritional and metabolic diseases complicating , second trimester] Onset: Episodic Other complications of (1 source) Other [...] technology in first trimester (HCC) 08-20-2024 Unclassified (13 sources) OB Reminders Onset: 5 10-22-2024 Unclassified [...] Test Name Value Interpretation Reference Range Facility ALL CBC WITH AUTO DIFFon BASOPHILS ABSOLUTE AUTO 0 [facility] Basophils/100 WBC (Bld) 0.3 % 0.2 - 2.0 % [facility] Eosinophils/100 WBC (Bld) 1.2 % 0.9 - 7.0 % [facility] Erythrocyte distribution width (RBC) [Ratio] 13.2 % 11.0 - 15.0 % [facility] Hematocrit (Bld) [Volume fraction] 35.6 % Low 36.0 - 48.0 % [facility] Hemoglobin (Bld) [Mass/Vol] 12 g/dL 12.0 - 16.0 g/dL [facility] IMMATURE GRANULOCYTES ABS AUTO 0.1 High [facility] Immature granulocytes/100 WBC (Bld) 0.8 % High 0.0 - 0.5 % [facility] Interpretation and review of laboratory results Abnormal [facility] LYMPHOCYTES ABSOLUTE AUTO 2.3 [facility] Lymphocytes/100 WBC (Bld) 19.7 % Low 20.5 - 60.0 % [facility] MCH (RBC) [Entitic mass] 29.6 pg 26.7 - 34.0 pg [facility] MCHC (RBC) [Mass/Vol] 33.7 g/dL 29.9 - 35.2 g/dL [facility] MCV (RBC) [Entitic vol] 87.7 fL 81.0 - 99.0 fL [facility] MONOCYTES ABSOLUTE AUTO 0.7 [facility] Monocytes/100 WBC (Bld) 6.2 % 1.7 - 12.0 % [facility] NEUTROPHILS ABSOLUTE AUTO 8.5 High [facility] Neutrophils/100 WBC (Bld) 71.8 % 43.0 - 75.0 % [facility] Platelet mean volume (Bld) [Entitic vol] 8.7 fL Low 9.5 - 13.5 fL [facility] TBH EO # 0.1 [facility] TB PLT 187 [facility] RBC 4.06 Low [facility] WBC 11.8 High [facility] 01-09-2025 Glucose [Mass/Vol] 118 mg/dL NINF - 13 0 mg/dL [facility] Urinalysis macro (dipstick) panel (U)on 12-19-2024 Bilirubin, UA Negative Negative - 4(70) +++ mg/dL [facility] Blood, UA Negative Negative - 50 Yehuda/mcL [facility] Clarity, UA Clear [facility] Color, UA Yellow [facility] Glucose, UA Negative Negative - 1999(110) ++++ mg/dL [facility] Interpretation and review of laboratory results Normal [facility] Ketones, UA Negative Negative - 160(16) ++++ mg/dL [facility] Leukocytes, UA Negative Negative - 500+++ Kourtney/mcL [facility] Nitrite, UA Negative Negative - Positive [facility] pH, UA 7 5 - 9 [facility] Protein, UA Negative Negative - 1999(20) ++++ mg/dL [facility] Spec Grav, UA 1.01 1 - 1.03 [facility] Urobilinogen, UA 1.0 0.2 - 12 mg/dL [facility] No [facility] ([facility]/CATCH) BIT BENDER/CARLOS RO IF IND.on 12-15-2024 BILIRUBIN URINE Negative NEGATIVE [facility] BLOOD URINE SMALL Abnormal NEGATIVE [facility] Clarity (U) CLEAR CLEAR [facility] Color (U) LT. YELLOW YELLOW [facility] GLUCOSE URINE UA Negative NEGATIVE mg/dL [facility] Interpretation and review of laboratory results Abnormal [facility] Ketones Ql (U) Negative NEGATIVE mg/dL [facility] Leukocyte esterase Test strip Ql (U) Negative NEGATIVE [facility] NITRITE URINE Negative NEGATIVE [facility] pH (U) 5.5 [pH] 5.0 - 9.0 [facility] PROTEIN URINE Negative NEG/TRACE mg/dL [facility] SPECIFIC GRAVITY URINE 1.015 1.005 - 1.025 [facility] URINE MICROSCOPIC INDICATED YES [facility] UROBILINOGEN URINE 0.2 EU/dL 0.2 - 1.0 EU/dL [facility] URINE MICROSCOPIC ONLYon 12-15-2024 BACTERIA URINE NONE [...] II, MD, PHD at 06-Dec-2024 08:04:50 AM [facility] [facility] Normal Not Available Comment on above: Order Comment: US OB ANATOMY SINGLE W US OB CERVICAL LENGTH Estimated Date of Delivery: 04/23/25 Gestational Age as of 11/20/2024: 18w0d Urinalysis complete panel (U )on 12-03-2024 Comment c/o urinary symptoms or increased blood pressure Name Collection Type:: Voided [facility] Appearance of Urineon 2024 Appearance (U) Clear Normal Clear [facility] Comment on above: Order Comment: Comme nt c/o urinary symptoms or increased blood pressure Name Collection Type:: Voided Performed By: #### A DDONUAPLUS #### [place] [address] [place] Bacteria [Presence] in Urine by AutomatedOrdered By: Eduardo Cruz on 12-02-2024 Bacteria Auto Ql (U) 1+ [HPF] High None Seen [facility] Bilirubin Test strip Ql (U)O rdered By: Eduardo Cruz on 12-02-2024 Bilirubin Ql (U) Negative Negative [facility] Color of Urine by [employer]oon Color (U) Light-Yellow Normal Yellow [facility] Comment on above: Order Comment: Comme nt c/o urinary symptoms or increased blood pressure Name Collection Type:: Voided Performed By: #### A DDONUAPLUS #### [facility] [address] [place] [address] [place] Dipstick and Microscopicon 0 12-02-2024 Bacteria,Urine 1+ [HPF] Normal None Seen [facility] Comment on above: Order Comment: Comme nt c/o urinary symptoms or increased blood pressure Name Collection Type:: Voided Performed By: #### A DDONUAPLUS #### [facility] [address] [place] [address] [place] BILIRUBIN,URINE Negative Normal Negative [facility] Comment on above: Order Comment: Comme nt c/o urinary symptoms or increased blood pressure Name Collection Type:: Voided Performed By: #### A DDONUAPLUS #### [address] Glucose Ql (U) Normal Normal Normal [facility] Comment on above: Order Comment: Comme nt c/o urinary symptoms or increased blood pressure Name Collection Type:: Voided Performed By: #### A DDONUAPLUS #### [address] Hyaline Casts,Urine None Normal 0-8 [facility] Comment on above: Order Comment: Comme nt c/o urinary symptoms or increased blood pressure Name Collection Type:: Voided Performed By: #### A DDONUAPLUS #### [address] Mucus,Urine 1+ [LPF] Critically abnormal [facility] Comment on above: Order Comment: Comme nt c/o urinary symptoms or increased blood pressure Name Collection Type:: Voided Result Comment: PERF ORMED BY: [place] [address] PATHOLOGIST DIRECTOR [facility] DAMIÁN DOSHI M.D. Performed By: #### A DDONUAPLUS #### [address] NITRITE,URINE Negative Normal Negative [facility] Comment on above: Order Comment: Comme nt c/o urinary symptoms or increased blood pressure Name Collection Type:: Voided Performed By: #### A DDONUAPLUS #### [address] OCCULT BLOOD,URINE 3+ Normal Negative [facility] Comment on above: Order Comment: Comme nt c/o urinary symptoms or increased blood pressure Name Collection Type:: Voided Result Comment: PERF ORMED BY: [place] [address] PATHOLOGIST DIRECTOR [facility] DAMIÁN DOSHI M.D. Performed By: #### A DDONUAPLUS #### [address] PROTEIN,URINE Negative Normal Negative [facility] Comment on above: Order Comment: Comme nt c/o urinary symptoms or increased blood pressure Name Collection Type:: Voided Performed By: #### A DDONUAPLUS #### [address] RBC,Urine 1-2 Normal 0-4 [facility] Comment on above: Order Comment: Comme nt c/o urinary symptoms or increased blood pressure Name Collection Type:: Voided Performed By: #### A DDONUAPLUS #### [address] SPECIFICY GRAVITY,URINE 1.017 Normal 1.001-1.030 [facility] Comment on above: Order Comment: Comme nt c/o urinary symptoms or increased blood pressure Name Collection Type:: Voided Performed By: #### A DDONUAPLUS #### [address] Squamous Epithelial Cell,Urine 1-2 Normal 0-2 [facility] Comment on above: Order Comment: Comme nt c/o urinary symptoms or increased blood pressure Name Collection Type:: Voided Performed By: #### A DDONUAPLUS #### [address] UROBILINOGEN,URINE Normal Normal Normal [facility] Comment on above: Order Comment: Comme nt c/o urinary symptoms or increased blood pressure Name Collection Type:: Voided Performed By: #### A DDONUAPLUS #### [address] WBC,Urine 1-2 Normal 0-4 [facility] Comment on above: Order Comment: Comme nt c/o urinary symptoms or increased blood pressure Name Collection Type:: Voided Performed By: #### A DDONUAPLUS #### [address] Epithelial cells.squamous [# /area] in Urine sediment by Automated countOrdered By: Eduardo Cruz on 12-02-2024 Epithelial cells.squamous Auto (Urine sed) [#/Area] 1-2 [HPF] 0-2 [facility] Erythrocytes [#/area] in Uri ne sediment by Automated countOrdered By: Eduardo Cruz on 12-02-2024 RBC Auto (Urine sed) [#/Area] 1-2 [HPF] 0-4 [facility] Glucose [Mass/volume] in Uri ne by Test stripOrdered By: Eduardo Cruz on 12-02-2024 Glucose Test strip (U) [Mass/Vol] Normal mg/dL Normal [facility] Hemoglobin Test strip Ql (U) Ordered By: Eduardo Cruz on 12-02-2024 Hemoglobin Ql (U) 3+ High Negative [facility] Hyaline casts [#/area] in Ur ine sediment by Automated countOrdered By: Eduardo Cruz on 12-02-2024 Hyaline casts Auto (Urine sed) [#/Area] None [LPF] 0-8 [facility] Ketones [Presence] in Urine by Test stripon 12-02-2024 Ketones Ql (U) Negative Normal Negative [facility] Comment on above: Order Comment: Comme nt c/o urinary symptoms or increased blood pressure Name Collection Type:: Voided Performed By: #### A DDONUAPLUS #### [facility] [address] [place] [address] [place] Leukocyte esterase [Presence ] in Urine by Test stripon 12-02-2024 Leukocyte esterase Test strip Ql (U) Negative Normal Negative [facility] Comment on above: Order Comment: Comme nt c/o urinary symptoms or increased blood pressure Name Collection Type:: Voided Performed By: #### A DDONUAPLUS #### [facility] [address] [place] [address] [place] Leukocytes [#/area] in Urine sediment by Automated countOrdered By: Eduardo Cruz on 12-02-2024 WBC Auto (Urine sed) [#/Area] 1-2 [HPF] 0-4 [facility] Mucus [Presence] in Urine by AutomatedOrdered By: Eduardo Cruz on 12-02-2024 Mucus Auto Ql (U) 1+ [LPF] Abnormal [facility] Nitrite Test strip Ql (U)Ord ered By: Eduardo Cruz on 12-02-2024 Nitrite Ql (U) Negative Negative [facility] Protein Test strip (U) [Mass /Vol]Ordered By: Eduardo Cruz on 12-02-2024 Protein (U) [Mass/Vol] Negative Negative [facility] Specific gravity Test strip (U) [Rel density]Ordered By: Eduardo Nancy on 12-02-2024 Specific gravity (U) [Rel density] 1.017 1.001-1.030 [facility] Urobilinogen Test strip (U) [Mass/Vol]Ordered By: Eduardo Cruz on 12-02-2024 Urobilinogen (U) [Mass/Vol] Normal mg/dL Normal [facility] pH of Urine by Test stripon 12-02-2024 pH (U) 5.5 [pH] Normal 5.0-9.0 [facility] Comment on above: Order Comment: Comme nt c/o urinary symptoms or increased blood pressure Name Collection Type:: Voided Performed By: #### A DDONUAPLUS #### [facility] [address] Basophils Auto (Bld) [#/Vol] Ordered By: Elizabeth Osborne ([place]) on 12-01-2024 Basophils (Bld) [#/Vol] 0.0 10 3/uL 0.0-0.1 [facility] Basophils/100 WBC Auto (Bld) Ordered By: (Roman) Elizabeth Osborne on 12-01-2024 Basophils/100 WBC (Bld) 0.3 % 0.2-2.0 [facility] Eosinophils/100 WBC Auto (Bl d)Ordered By: (Roman) Elizabeth Osborne on 12-01-2024 Eosinophils/100 WBC (Bld) 1.8 % 0.9-7.0 [facility] Erythrocyte distribution wid th Auto (RBC) [Ratio]Ordered By: (Diya Osborne on 12-01-2024 Erythrocyte distribution width (RBC) [Ratio] 14.0 % 11.0-15.0 [facility] Globulin Calc (S) [Mass/Vol] Ordered By: Elizabeth Osborne ([place]) on 12-01-2024 Globulin (S) [Mass/Vol] 3.6 g/dL [facility] Glomerular filtration rate ( GFR) estimation in non- AmericanOrdered By: Elizabeth Osborne ([place]) on 12-01-2024 GFR/1.73 sq M.predicted among non-blacks MDRD (S/P/Bld) [Vol rate/Area] mL/min/{1.73_m2} >=60 mL/min/1.73m 2 [facility] Hematocrit Auto (Bld) [Volum e fraction]Ordered By: (Diya Osborne on 12-01-2024 Hematocrit (Bld) [Volume fraction] 38.0 % 36.0-48.0 [facility] Hemoglobin [Mass/volume] in BloodOrdered By: Angelina) Elizabeth Osborne on 12-01-2024 Hemoglobin (Bld) [Mass/Vol] 13.0 g/dL 12.0-16.0 [facility] Laboratory - Chemistry and C hemistry - challengeOrdered By: (Diya Osborne on 12-01-2024 Bilirubin Ql (U) Negative NEGATIVE [facility] Glucose (U) [Mass/Vol] Negative NEGATIVE [facility] Ketones Ql (U) Negative NEGATIVE [facility] pH (U) 6.0 [pH] 5.0-9.0 [facility] Specific gravity (U) [Rel density] 1.025 1.005-1.025 [facility] Urobilinogen Qn (U) 1.0 {Fabián'U}/dL 0.2-1.0 [facility] Albumin [Mass/Vol] 3.1 g/dL Low 3.4-5.0 [facility] ALP [Catalytic activity/Vol] 45 U/L Low 46-116 [facility] ALT [Catalytic activity/Vol] 20 U/L 14-59 [facility] AST [Catalytic activity/Vol] 14 U/L Low 15-37 [facility] Bilirubin [Mass/Vol] 0.4 mg/dL 0.2-1.0 [facility] Calcium [Mass/Vol] 8.6 mg/dL 8.5-10.1 [facility] Chloride [Moles/Vol] 106 mmol/L 98-107 [facility] CO2 [Moles/Vol] 25.7 mmol/L 21.0-32.0 [facility] Creatinine [Mass/Vol] 0.37 mg/dL Low 0.55-1.02 [facility] GFR/1.73 sq M.predicted MDRD (S/P/Bld) [Vol rate/Area] mL/min/{1.73_m2} >=60 mL/min/1.73m 2 [facility] Glucose [Mass/Vol] 61 mg/dL Low 74-106 [facility] Potassium [Moles/Vol] 3.9 mmol/L 3.5-5.1 [facility] Protein [Mass/Vol] 6.7 g/dL 6.4-8.2 [facility] Sodium [Moles/Vol] 139 mmol/L 136-145 [facility] Urea nitrogen [Mass/Vol] 3.0 mg/dL Low 7.0-18.0 [facility] Urea nitrogen/Creatinine [Mass ratio] 8.1 mg/mg [facility] Laboratory - Hematology and Cell countsOrdered By: Elizabeth Osborne ([place]) on 12-01-2024 Immature granulocytes/100 WBC (Bld) 1.0 % High 0.0-0.5 [facility] - Specimen inform ationOrdered By: Elizabeth Osborne ([place]) on 12-01-2024 Appearance (U) CLEAR CLEAR [facility] Color (U) LT. YELLOW YELLOW [facility] Laboratory - UrinalysisOrder ed By: Elizabeth Osborne ([place]) on 12-01-2024 Leukocyte esterase Test strip Ql (U) Negative NEGATIVE [facility] Nitrite Ql (U) Negative NEGATIVE [facility] Protein Ql (U) Negative NEG/TRACE [facility] Leukocytes [#/volume] correc terry for nucleated erythrocytes in Blood by Automated counOrdered By: Elizabeth Osborne ([place]) on 12-01-2024 WBC corrected for nucl RBC Auto (Bld) [#/Vol] 10.0 10 3/uL 4.0-11.0 [facility] Lymphocytes Auto (Bld) [#/Vo l]Ordered By: Elizabeth India on 12-01-2024 Lymphocytes (Bld) [#/Vol] 2.2 10 3/uL 1.2-3.8 [facility] Lymphocytes/100 WBC Auto (Bl d)Ordered By: Daleo) Elizabeth [place] on 12-01-2024 Lymphocytes/100 WBC (Bld) 22.1 % 20.5-60.0 [facility] MCH Auto (RBC) [Entitic mass ]Ordered By: ([place]) Elizabeth India on 12-01-2024 MCH (RBC) [Entitic mass] 29.8 pg 26.7-34.0 [facility] MCHC Auto (RBC) [Mass/Vol]Or dered By: (Roman) Elizabeth India on 12-01-2024 MCHC (RBC) [Mass/Vol] 34.2 g/dL 29.9-35.2 [facility] MCV Auto (RBC) [Entitic vol] Ordered By: (Owens) Elizabeth India on 12-01-2024 MCV (RBC) [Entitic vol] 87.2 fL 81.0-99.0 [facility] Monocytes Auto (Bld) [#/Vol] Ordered By: Daleo) Elizabeth India on 12-01-2024 Monocytes (Bld) [#/Vol] 0.7 10 3/uL 0.3-0.8 [facility] Monocytes/100 WBC Auto (Bld) Ordered By: Daleo) Elizabeth Osborne on 12-01-2024 Monocytes/100 WBC (Bld) 6.5 % 1.7-12.0 [facility] Neutrophils Auto (Bld) [#/Vo l]Ordered By: ([place]) Elizabeth India on 12-01-2024 Neutrophils (Bld) [#/Vol] 6.9 10 3/uL High 1.4-6.5 [facility] Neutrophils/100 WBC Auto (Bl d)Ordered By: ([place]) Elizabeth Osborne on 12-01-2024 Neutrophils/100 WBC (Bld) 68.3 % 43.0-75.0 [facility] No Panel InformationOrdered By: (Roman) Elizabeth Thomason on 12-01-2024 Urine Microscopic Review NO [facility] Urine Occult Blood Negative NEGATIVE [facility] Eosinophils # (Auto) 0.2 10 3/uL 0.0-0.7 [facility] Immature Granulocyte # (Auto) 0.10 10 3/uL High 0.00-0.03 [facility] Platelet mean volume Auto (B ld) [Entitic vol]Ordered By: ([place]) Elizabeth Osborne on 12-01-2024 Platelet mean volume (Bld) [Entitic vol] 8.3 fL Low 9.5-13.5 [facility] Platelets Auto (Bld) [#/Vol] Ordered By: ([place]) Elizabeth Osborne on 12-01-2024 Platelets (Bld) [#/Vol] 177 10 3/uL 150-450 [facility] RBC Auto (Bld) [#/Vol]Ordere d By: DaleoBeto [place] on 12-01-2024 RBC (Bld) [#/Vol] 4.36 10 6/uL 4.20-5.40 [facility] Serum or plasma albumin/glob ulin mass ratioOrdered By: Daleo) Elizabeth Osborne on 12-01-2024 Albumin/Globulin [Mass ratio] 0.9 {ratio} [facility] Serum or plasma anion gap de terminationOrdered By: Daleo) Elizabeth Osborne on 12-01-2024 Anion gap [Moles/Vol] 11.2 mmol/L [facility] Basophils Auto (Bld) [#/Vol] Ordered By: Chris Dickerson on 11-30-2024 Basophils (Bld) [#/Vol] 0.0 10 3/uL 0.0-0.1 [facility] Basophils/100 WBC Auto (Bld) Ordered By: Chris Dickerson on 11-30-2024 Basophils/100 WBC (Bld) 0.2 % 0.2-2.0 [facility] Eosinophils/100 WBC Auto (Bl d)Ordered By: Chris Dickerson on 11-30-2024 Eosinophils/100 WBC (Bld) 1.7 % 0.9-7.0 [facility] Erythrocyte distribution wid th Auto (RBC) [Ratio]Ordered By: Chris Dickerson on 11-30-2024 Erythrocyte distribution width (RBC) [Ratio] 14.1 % 11.0-15.0 [facility] Globulin Calc (S) [Mass/Vol] Ordered By: Chris Dickerson on 11-30-2024 Globulin (S) [Mass/Vol] 3.3 g/dL [facility] Glomerular filtration rate ( GFR) estimation in non- AmericanOrdered By: Chris Dickerson on 11-30-2024 GFR/1.73 sq M.predicted among non-blacks MDRD (S/P/Bld) [Vol rate/Area] mL/min/{1.73_m2} >=60 mL/min/1.73m 2 [facility] Hematocrit Auto (Bld) [Volum e fraction]Ordered By: Chris Dickerson on 11-30-2024 Hematocrit (Bld) [Volume fraction] 36.2 % 36.0-48.0 [facility] Hemoglobin [Mass/volume] in BloodOrdered By: Chris Dickerson on 11-30-2024 Hemoglobin (Bld) [Mass/Vol] 12.6 g/dL 12.0-16.0 [facility] Laboratory - Chemistry and C hemistry - challengeOrdered By: Chris Dickerson on 11-30-2024 Bilirubin Ql (U) Negative NEGATIVE [facility] Glucose (U) [Mass/Vol] Negative NEGATIVE [facility] Ketones Ql (U) Negative NEGATIVE [facility] pH (U) 6.0 [pH] 5.0-9.0 [facility] Specific gravity (U) [Rel density] 1.015 1.005-1.025 [facility] Urobilinogen Qn (U) 1.0 {Fabián'U}/dL 0.2-1.0 [facility] Albumin [Mass/Vol] 3.1 g/dL Low 3.4-5.0 [facility] ALP [Catalytic activity/Vol] 47 U/L 46-116 [facility] ALT [Catalytic activity/Vol] 20 U/L 14-59 [facility] AST [Catalytic activity/Vol] 12 U/L Low 15-37 [facility] Bilirubin [Mass/Vol] 0.3 mg/dL 0.2-1.0 [facility] Bilirubin.direct [Mass/Vol] 0.1 mg/dL 0.0-0.2 [facility] Calcium [Mass/Vol] 8.8 mg/dL 8.5-10.1 [facility] Chloride [Moles/Vol] 108 mmol/L High 98-107 [facility] CO2 [Moles/Vol] 26.0 mmol/L 21.0-32.0 [facility] Creatinine [Mass/Vol] 0.32 mg/dL Low 0.55-1.02 [facility] GFR/1.73 sq M.predicted MDRD (S/P/Bld) [Vol rate/Area] mL/min/{1.73_m2} >=60 mL/min/1.73m 2 [facility] Glucose [Mass/Vol] 74 mg/dL 74-106 [facility] Potassium [Moles/Vol] 4.1 mmol/L 3.5-5.1 [facility] Protein [Mass/Vol] 6.4 g/dL 6.4-8.2 [facility] Sodium [Moles/Vol] 142 mmol/L 136-145 [facility] Urate [Mass/Vol] 3.0 mg/dL 2.6-6.0 [facility] Urea nitrogen [Mass/Vol] 7.0 mg/dL 7.0-18.0 [facility] Urea nitrogen/Creatinine [Mass ratio] 21.9 mg/mg [facility] Laboratory - Hematology and Cell countsOrdered By: Chris Dickerson on 11-30-2024 Immature granulocytes/100 WBC (Bld) 0.7 % High 0.0-0.5 [facility] Laboratory - Specimen inform ationOrdered By: Chris Dickerson on 11-30-2024 Appearance (U) CLEAR CLEAR [facility] Color (U) LT. YELLOW YELLOW [facility] Laboratory - UrinalysisOrder ed By: Chris Dickerson on 11-30-2024 Leukocyte esterase Test strip Ql (U) SMALL Abnormal NEGATIVE [facility] Mucus Ql (Urine sed) TRACE Abnormal NONE SEEN [facility] Nitrite Ql (U) Negative NEGATIVE [facility] Protein Ql (U) Negative NEG/TRACE [facility] Leukocytes [#/volume] correc terry for nucleated erythrocytes in Blood by Automated counOrdered By: Chris Dickerson on 11-30-2024 WBC corrected for nucl RBC Auto (Bld) [#/Vol] 8.7 10 3/uL 4.0-11.0 [facility] Lymphocytes Auto (Bld) [#/Vo l]Ordered By: Chris Dickerson on 11-30-2024 Lymphocytes (Bld) [#/Vol] 2.0 10 3/uL 1.2-3.8 [facility] Lymphocytes/100 WBC Auto (Bl d)Ordered By: Chris Dickerson on 11-30-2024 Lymphocytes/100 WBC (Bld) 22.9 % 20.5-60.0 [facility] MCH Auto (RBC) [Entitic mass ]Ordered By: Chris Dickerson on 11-30-2024 MCH (RBC) [Entitic mass] 30.0 pg 26.7-34.0 [facility] MCHC Auto (RBC) [Mass/Vol]Or dered By: Chris Dickerson on 11-30-2024 MCHC (RBC) [Mass/Vol] 34.8 g/dL 29.9-35.2 [facility] MCV Auto (RBC) [Entitic vol] Ordered By: Chris Dickerson on 11-30-2024 MCV (RBC) [Entitic vol] 86.2 fL 81.0-99.0 [facility] Monocytes Auto (Bld) [#/Vol] Ordered By: Chris Dickerson on 11-30-2024 Monocytes (Bld) [#/Vol] 0.6 10 3/uL 0.3-0.8 [facility] Monocytes/100 WBC Auto (Bld) Ordered By: Chris Dickerson on 11-30-2024 Monocytes/100 WBC (Bld) 7.2 % 1.7-12.0 [facility] Neutrophils Auto (Bld) [#/Vo l]Ordered By: Chris Dickerson on 11-30-2024 Neutrophils (Bld) [#/Vol] 5.9 10 3/uL 1.4-6.5 [facility] Neutrophils/100 WBC Auto (Bl d)Ordered By: Chris Dickerson on 11-30-2024 Neutrophils/100 WBC (Bld) 67.3 % 43.0-75.0 [facility] No Panel InformationOrdered By: Chris Dickerson on 11-30-2024 Urine Bacteria MODERATE #/HPF Abnormal NONE SEEN [facility] Urine Culture Reflexed [facility] Urine Occult Blood Negative NEGATIVE [facility] Urine Other Casts NONE SEEN #/LPF NONE SEEN [facility] Urine Other Crystals None Seen #/HPF None Seen [facility] Urine RBC 0-2 #/HPF 0-2 [facility] Urine Squamous Epithelial Cells FEW #/LPF Abnormal NONE/RARE [facility] Urine WBC 0-2 #/HPF Abnormal NONE SEEN [facility] Eosinophils # (Auto) 0.2 10 3/uL 0.0-0.7 [facility] Immature Granulocyte # (Auto) 0.06 10 3/uL High 0.00-0.03 [facility] Platelet mean volume Auto (B ld) [Entitic vol]Ordered By: Chris Dickerson on 11-30-2024 Platelet mean volume (Bld) [Entitic vol] 8.7 fL Low 9.5-13.5 [facility] Platelets Auto (Bld) [#/Vol] Ordered By: Chris Dickerson on 11-30-2024 Platelets (Bld) [#/Vol] 185 10 3/uL 150-450 [facility] RBC Auto (Bld) [#/Vol]Ordere d By: Chris Dickerson on 11-30-2024 RBC (Bld) [#/Vol] 4.20 10 6/uL 4.20-5.40 [facility] Serum or plasma albumin/glob ulin mass ratioOrdered By: Chris Dickerson on 11-30-2024 Albumin/Globulin [Mass ratio] 0.9 {ratio} [facility] Serum or plasma anion gap de terminationOrdered By: Chris Dickerson on 11-30-2024 Anion gap [Moles/Vol] 12.1 mmol/L [facility] Urine Cultureon 11-30-2024 Bacteria identified Cx Nom (U) 50,000 colonies/ml mixed bacterial skin contaminants 2 Days PERFORMED BY: [place] [id number] PATHOLOGIST DIRECTOR [facility] DAMIÁN DOSHI M.D. Normal [facility] Comment on above: Performed By: #### C UU #### [address] RECURRENT VAGINITIS (HTRX)on 11-21-2024 ATOPOBIUM VAGINAE [...] [facility] Alpha-fetoprotein (AFP) kelly urement (bowigwfi-iq-squlmm)Ordered By: Les Martinez on 11-20-2024 AFP [MoM] 0.87 . [facility] Assess gestational ageOrdere d By: Les Martinez on 11-20-2024 Gestational age 18.0 weeks . [facility] Estimation of maternal age-s pecific risk of Down syndrome birthOrdered By: Les Martinez on 11-20-2024 [age] [Time] [age] yr . [facility] Insulin dependent diabetes m ellitus detectionOrdered By: Les Martinez on 11-20-2024 Insulin dependent diabetes mellitus Ql No . [facility] Interpretation of serum or p lasma second trimester quad maternal screen (narrative reOrdered By: Les Martinez on 11-20-2024 Second trimester quad maternal screen Gonzales [Interp] Comment . [facility] Comment on above: Interpretation: Scre en [...] quad maternal screen Gonzales [Interp] Negative . [facility] Laboratory - Chemistry and C hemistry - challengeOrdered By: Les Martinez on 11-20-2024 TSH Qn 1.702 m[IU]/L 0.358-3.740 [facility] No Panel InformationOrdered By: Les Martinez on 11-20-2024 AFP Triple Screen Comment Comment . [facility] Comment on above: Gisel Gandhi , Ph.D., DABCCDirectorReferences: Available Upon Request.Multiples Of Median Cutoffs For AFP ElevationsSingleton 2.5 Black 2.8IDD 2.0 Twins 4.5 Abbreviation DefinitionsIDD - Insulin Dep DiabetesOSBR - Open Spina Bifida RiskFor further inquiries contact [employer] at [phone].This test was developed and its performance characteristicsdetermined by [employer]. It has not been cleared or approvedby the Food and Drug Administration.Performed at: [facility] [id number] [facility] [place], [place] [id number] Director: Lorena Ellis [facility], Phone: [phone] Alpha Fetoprotein Results Received Report . [facility] Gestational Age Calculation Method Ultrasound . [facility] Comment on above: 18.0 on 11/20/2024Re calculations are not recommended when gestational datingby LMP and ultrasound are within 10 days. Maternal Quad Test Risk [address]98[address] . [facility] Maternal Race Other . [facility] Multiple No . [facility] Serum or plasma befpw-7-czdw protein measurement (mass/volume)Ordered By: Les Martinez on 11-20-2024 AFP [Mass/Vol] 27.6 ng/mL . [facility] Urinalysis macro (dipstick) panel (U)on 11-20-2024 Bilirubin, UA Negative Negative - 4(70) +++ mg/dL [facility] Blood, UA Negative Negative - 50 Yehuda/mcL [facility] Clarity, UA Clear [facility] Color, UA Yellow [facility] Glucose, UA Negative Negative - 1999(110) ++++ mg/dL [facility] Interpretation and review of laboratory results Abnormal [facility] Ketones, UA Negative Negative - 160(16) ++++ mg/dL [facility] Leukocytes, UA 2+ Negative - 500+++ Kourtney/mcL [facility] Nitrite, UA Negative Negative - Positive [facility] pH, UA 8 5 - 9 [facility] Protein, UA Negative Negative - 1999(20) ++++ mg/dL [facility] Spec Grav, UA 1.01 1 - 1.03 [facility] Urobilinogen, UA 1.0 0.2 - 12 mg/dL [facility] Laboratory - Chemistry and C hemistry - challengeOrdered By: Chris Dickerson on 11-17-2024 Bilirubin Ql (U) Negative NEGATIVE [facility] Glucose (U) [Mass/Vol] Negative NEGATIVE [facility] Ketones Ql (U) Negative NEGATIVE [facility] pH (U) 7.5 [pH] 5.0-9.0 [facility] Specific gravity (U) [Rel density] 1.010 1.005-1.025 [facility] Urobilinogen Qn (U) 1.0 {Fabián'U}/dL 0.2-1.0 [facility] Laboratory - Specimen inform ationOrdered By: Chris Dickerson on 11-17-2024 Appearance (U) CLEAR CLEAR [facility] Color (U) LT. YELLOW YELLOW [facility] Laboratory - UrinalysisOrder ed By: Chris Dickerson on 11-17-2024 Leukocyte esterase Test strip Ql (U) Negative NEGATIVE [facility] Mucus Ql (Urine sed) NONE SEEN NONE SEEN [facility] Nitrite Ql (U) Negative NEGATIVE [facility] Protein Ql (U) Negative NEG/TRACE [facility] No Panel InformationOrdered By: Chris Dickerson on 11-17-2024 Urine Bacteria TRACE #/HPF Abnormal NONE SEEN [facility] Urine Culture Reflexed NO [facility] Urine Occult Blood Negative NEGATIVE [facility] Urine Other Casts NONE SEEN #/LPF NONE SEEN [facility] Urine Other Crystals None Seen #/HPF None Seen [facility] Urine RBC NONE SEEN #/HPF 0-2 [facility] Urine Squamous Epithelial Cells RARE #/LPF NONE/RARE [facility] Urine WBC NONE SEEN #/HPF NONE SEEN [facility] Ultrasound - Officeon 2024 Radiology Study observation (narrative) [facility] Urinalysis macro (dipstick) panel (U)on 10-22-2024 Bilirubin, UA Negative Negative - 4(70) +++ mg/dL [facility] Blood, UA Negative Negative - 50 Yehuda/mcL [facility] Clarity, UA Clear [facility] Color, UA Yellow [facility] Glucose, UA Negative Negative - 1999(110) ++++ mg/dL [facility] Interpretation and review of laboratory results Normal [facility] Ketones, UA Negative Negative - 160(16) ++++ mg/dL [facility] Leukocytes, UA Negative Negative - 500+++ Kourtney/mcL [facility] Nitrite, UA Negative Negative - Positive [facility] pH, UA 7 5 - 9 [facility] Protein, UA Negative Negative - 1999(20) ++++ mg/dL [facility] Spec Grav, UA 1.01 1 - 1.03 [facility] Urobilinogen, UA 1.0 0.2 - 12 mg/dL [facility] Appearance of UrineOrdered B y: Kassidy Arriaza on 10-18-2024 Appearance (U) Clear Normal Clear [facility] Comment on above: Order Comment: Name Collection Type:: Clean-Voided Midstream Performed By: #### U A, CUU #### [address] Bilirubin Test strip Ql (U)O rdered By: Kassidy Arriaza on 10-18-2024 Bilirubin Ql (U) Negative Negative [facility] Chlamydia/GC Amplificationon 10-18-2024 Chlamydia Trachomotis, AC Negative Normal Negative [facility] Comment on above: Order Comment: SOURC E OF SPECIMEN: Genital Performed By: #### G CCHLAMAMP #### [facility] , #### CUGEN #### [address] Neisseria Gonorrhoeae, AC Negative Normal Negative [facility] Comment on above: Order Comment: SOURC E OF SPECIMEN: Genital Result Comment: Perf ormed at: =G - [facility] [address] [id number] Liquefier: Dagmar Love MD, Phone: [phone] PERFORMED BY: [place] [address] PATHOLOGIST DIRECTOR [facility] DAMIÁN DOSHI M.D. Performed By: #### G CCHLAMAMP #### [facility] , #### CUGEN #### [address] Color of Urine by AutoOrdere d By: Kassidy Arriaza on 10-18-2024 Color (U) Colorless Normal Yellow [facility] Comment on above: Order Comment: Name Collection Type:: Clean-Voided Midstream Performed By: #### U A, CUU #### [place] [address] [place] Genital Cultureon 10-18-2024 Genital Culture Genital Results Light Normal Urogenital Damián 2 Days No More GC Specimen not tested for Neisseria gonorrheae PERFORMED BY: [place] [address] PATHOLOGIST DIRECTOR [facility] DAMIÁN DOSHI M.D. Normal [facility] Comment on above: Performed By: #### G CCHLAMAMP #### [facility] , #### CUGEN #### [facility] [address] [place] [address] Genital specimen bacteria id entification by aerobic cultureOrdered By: Kassidy Arriaza on 10-18-2024 Bacteria identified Aer cx Nom (Genital specimen) [facility] Glucose [Mass/volume] in Uri ne by Test stripOrdered By: Kassidy Arriaza on 10-18-2024 Glucose Test strip (U) [Mass/Vol] Normal mg/dL Normal [facility] Hemoglobin Test strip Ql (U) Ordered By: Kassidy Arriaza on 10-18-2024 Hemoglobin Ql (U) Negative Negative [facility] Ketones [Presence] in Urine by Test stripOrdered By: Kassidy Arriaza on 10-18-2024 Ketones Ql (U) Trace Normal Negative [facility] Comment on above: Order Comment: Name Collection Type:: Clean-Voided Midstream Performed By: #### U A, CUU #### [address] Laboratory - Microbiology an d Antimicrobial susceptibilityOrdered By: Kassidy Arriaza on 10-18-2024 C. trachomatis DNA AC+probe Ql (Unsp spec) Negative Negative [facility] N. gonorrhoeae DNA AC+probe Ql (Unsp spec) Negative Negative [facility] Comment on above: Performed at: =[address] [id number] Director: Dagmar Love MD, Phone: [phone] Leukocyte esterase [Presence ] in Urine by Test stripOrdered By: Kassidy Arriaza on 10-18-2024 Leukocyte esterase Test strip Ql (U) Negative Normal Negative [facility] Comment on above: Order Comment: Name Collection Type:: Clean-Voided Midstream Performed By: #### U A, CUU #### [facility] [address] [place] [address] [facility] Nitrite Test strip Ql (U)Ord ered By: Kassidy Arriaza on 10-18-2024 Nitrite Ql (U) Negative Negative [facility] Protein Test strip (U) [Mass /Vol]Ordered By: Kassidy Arriaza on 10-18-2024 Protein (U) [Mass/Vol] Negative Negative [facility] Specific gravity Test strip (U) [Rel density]Ordered By: Kassidy Arriaza on 10-18-2024 Specific gravity (U) [Rel density] 1.007 1.001-1.030 [facility] US OB <= 14 weeks fetuson US OB <= 14 weeks fetus [facility] Main [facility] [address] [place], [place] [id number] Ultrasound Report Signed Patient: Jaz Sanders MR#: [id number] : 1995 Acct:[id number] Age/Sex: 29 / F ADM Date: 10/18/24 Loc: ER Room: Type: [facility] ER Attending Dr: Ordering Provider: Kassidy Arriaza [...] Jr., D.ORenae 10/18/2024 2:21 PM Dictation Location: [place] [address] Tech: Natalie Raissa Transcribed By: MAITE 10/18/24 1421 Dictated By: Sravan Dickinson Jr, DO 10/18/24 1419 Signed By: 10/18/24 1421 Normal [facility] Unlisted Lab Teston 10-19-19 [facility] Urinalysison 10-18-2024 Bilirubin,Urine Negative Normal Negative [facility] Comment on above: Order Comment: Name Collection Type:: Clean-Voided Midstream Performed By: #### U A, CUU #### [address] Glucose Ql (U) Normal Normal Normal [facility] Comment on above: Order Comment: Name Collection Type:: Clean-Voided Midstream Performed By: #### U A, CUU #### [place] [address] [place] Nitrite,Urine Negative Normal Negative [facility] Comment on above: Order Comment: Name Collection Type:: Clean-Voided Midstream Performed By: #### U A, CUU #### [place] [address] [place] Occult Blood,Urine Negative Normal Negative [facility] Comment on above: Order Comment: Name Collection Type:: Clean-Voided Midstream Result Comment: PERF ORMED BY: [place] [address] PATHOLOGIST DIRECTOR [facility] DAMIÁN DOSHI M.D. Performed By: #### U A, CUU #### [place] [address] [place] Protein,Urine Negative Normal Negative [facility] Comment on above: Order Comment: Name Collection Type:: Clean-Voided Midstream Performed By: #### U A, CUU #### [place] [address] [place] Specificy [place],Urine 1.007 Normal 1.001-1.030 [facility] Comment on above: Order Comment: Name Collection Type:: Clean-Voided Midstream Performed By: #### U A, CUU #### [address] Urobilinogen,Urine Normal Normal Normal [facility] Comment on above: Order Comment: Name Collection Type:: Clean-Voided Midstream Performed By: #### U A, CUU #### [facility] [address] Urine Cultureon 10-18-2024 Bacteria identified Cx Nom (U) <9,000 colonies/ml mixed bacterial skin contaminants 2 Days PERFORMED BY: [place] [address] PATHOLOGIST DIRECTOR [facility] DAMIÁN DOSHI M.D. Normal [facility] Comment on above: Performed By: #### U A, CUU #### [facility] [address] Urine cultureOrdered By: Jemima Arriaza on 10-18-2024 Bacteria identified Cx Nom (U) 2 Days [facility] Urobilinogen Test strip (U) [Mass/Vol]Ordered By: Kassidy Arriaza on 10-18-2024 Urobilinogen (U) [Mass/Vol] Normal mg/dL Normal [facility] pH of Urine by Test stripOrd ered By: Kassidy Arriaza on 10-18-2024 pH (U) 7.0 [pH] Normal 5.0-9.0 [facility] Comment on above: Order Comment: Name Collection Type:: Clean-Voided Midstream Performed By: #### U A, CUU #### [facility] [address] [place] [address] Unlisted Lab Teston 10-17-19 [facility] BOX TESTon 10-10-2024 BOX TEST SENT OUT [facility] [address] [facility] [address] 10-10-24 [facility] Coding Summaryon 10-02-2024 Coding Summary HTMLBase 64 LdgydvhpEHo4jSd+PGhlYWQ +IV5UFGVkW38tiETguF0xF7 NMTElOSywgQVBQTElOSyIgb rLoAQ4edPOjFQVa IC8+HG6rBXOvSqelhXNll9T 7uBS7W63zml2jYGlqjZT8NC OtDxAwwcnuw1dyaYd9XOtdZ mluOyBt VJFqbS51TIB0wF46Ws29jCL goRKxq3mnzCf0EzKiUICyXU B8bOcxGSeyj5ZaDGSiA02bq OTuq4J4 YFAnoUxkdVFqAbDclBT0vW6 xWMbabdvvz0pqzphlNon0zh 64oZKgg3Q6aBO3C9CurxS1F GJvbGQg VivisOFUiW6yvrixb5nmgba qNzKwAOHjTAz4HFc8YZYdxY qfCjTdQP75ZGX2ZTBsylDoU 2FsLWFs wOboMyT9v4S0Dz5TI2HIIfa nP3OVLEHSIGrlyET+PC90cj 75P4TiCeqsQzi0CIOiHDA3c UF2cM0m PWBlTYuxg7Y9dCZ4B0JhfbW xun7cw8jyAFAsHFnqW18wfX Cjr1Z2BOKurPZ4PVKryIwkG iBzaG93 Oyc+RLFxvZqhm4ZeXnuii1i ri4eflRw7OagyKBDhlzCsiG dtAIJ4v6VuQl4uYJBksAE8z MH4eI8m TjIcLgM8XRgxV195QrTotII kCmvjU25fG2EswIZ+PHRyPj h2RBHyxOkgBE3iJ0UoDGZjd mctbGVm bSlwIY9qXJMqjvgiGHAxcV7 vSTTuL0f1PtUbOaT8DLdfI8 LgVASpoquaWg73yZ3qVwEjT lV5OIyi U7TeumV6GWAatAAwZOjhRAU 9T65gr3O2OWTbFCFgAMH3hR R0vH5myOtitdfdjHOznYdlp mVydGlj ZGxmDRejI455QJXukWhnBnV vZGluZyBEYXRlOiAgMDYvMT cvMjAyNTwvdGQ+RKBqCOJ1p WxlPSAn tXDiXYpbZq1ppKadxKjmTP5 lBOCgaxpbNOGquF6rXWIphI BgxVoiJX8sQANzuidcb950E iAxMHB0 ZDZpsXYyK6RhcH4eEjTwDZN aUBReJ2McoBQzJUsjD728FF rcEgN3WMQrvhDrQ1MvWRKov WduOiB0 g3N9Be6Mc9TsxopzD8VjoOU jQaSqTwcwFAh7V8MiIicutO I+RX02CCGqCO88VXe4JGX3r WxlPSdi DSTrL3SeoQ5vCmCnHSXkOCH kOyc+PHRhYmxlIHdpZHRoPS jvBARqVwOkvTwyUN7mSs2bK GVyLWNv zKxtvODuHzLzr4gnQTYdHCs zPJ3gaUkaW2DbkUU3VHZlq0 b0Qx00I25rI5CoeVD+PGNvb CN2rUQ4 iI7gXnYaJrL4RGhlJ703FqJ ewCApPolbf7yjg8xkxNc9Zm V2WIEtmnVruFcaWBB1y1XnC y91U69k IHdpZHRoPSIxNSUiIHZhbGl tuy0hcQ3bVf3+HGBwvHN1pQ N8hX4tCtIjJqH9JUpbI937Y nRvcCIv Wrkls4wlm3rfnWb4XfYdCYK uvtKuiZttYBD8q7FfRo56L6 YfpOdhe7KuFjr9hs79oCDso 1E5dVM8 Q0JaISNtpdrdjIMfmLqrMG7 iGXYgzlqkALNutF4bQJBxC6 k4MwCuFqN6IYnfJ5KgarC6P GJvbGQg MWAnrCAYeG5othwzd5nnnin uMlHkZBNhAPg6EMl9WTTjdP rkEwJyKSU0OzX0UAG0lFWnz L2vfCdc xdqpdF9fMaw+DZB4wACcbBX VOJ9xVxdbxGC+STBzGEM4iP omBFunVBSxrF4fLSSiM7d9M iAwLjA1 XTsmW6RbpaT7MSJshPFwPOK utHGArV9nvvwxs7xxvmyjDx HpTNCwQZv8DTn8CUHaoEahP iBsZWZ0 IiD7VQL7nLNtvS3rtGejora wqD7wNqg+FiriwPkpNJY5AP i1U7DvRjz1FMStoZqnRC4ay GFkZGlu Pl9dzOtmuQatLG6lLPErfoq xs450YrKpu6meLATopTWuRO isTQP0C66bu7K0YTBuMUJpW OL0wCK0 pM8zkEpuqizvmODlsVmpskI sjQohCKjpCCwzT147PUUueH glLjHwEUc5O5LlVsb1DZRyd BnfVP4n qCMdZIamOy7isBlwoBobFT6 xWHRdfnlie374JmYnx7lnNR ZrnBVoTJzaNGD2P10xb0B7W CMwMDAw MQR2oOS6fS7xiDisjucndWM mdDsgdmVydGljYWwtYWxpZ2 29EBCzxUuiXkCzpOf2L3QvV jw9MZMe yPjhBB8jsCIcBZaiPg1bgQk qjEocXG9lMDFaatijn360Hq Cmc5fqGHEzlCQcINmdZUV9O 10op0L5 DOPaJDVzNQX3gXU5yQ7edVl nbjogbGVmdDsgdmVydGljYW vfAGmdI761SYOurKbmWwVzw GllbnQg HEsmHGy9J4CjHilrsEA+PC9 2YJFrMW91cAAzvQKno7mfkX y1AtNhXDImZYO1iHeyBNrbj 3JkZXIt S45hjRIxp7B0ZGDdlLyjlWJ jGnRtmPR2vZ2qLSwkekklt2 flngvdHoehf9ovvy92fG68J 29sIHdp ZHRoPSIzMCUiIHZhbGlnbj0 omL1wVa0+DJFzeJG5uJP2wY 9xVJPiGiK7IPvxT805FxQbe CIvPjxj a3qwh5wtlXr3CuZ6SSCfbrW jgUmfILF5r7ThHw27B76mMW dpZHRoPSIyMCUiIHZhbGlnb j4raG3q Ii8+BIWgfYT3qQL5mB1jAyE cRsA3CXgcQ560TcFpcKQpIm fjB31uL5JqbOX+IFWgMfo2A CBzdHls JG8qqECbAJzuFe7iJZE1ZeC eWmQeYSgbQ6CmJFEoozgccn ytmFG3ORQcVQUvgE13Fl5oq DogMTBw eFBUmO6gvnggn2kdvhiwRzM eZZSqHZe1TTy5SYUqtUowYv GmORE0HoL2KOH4oERwvK9tt Glnbjog cP4iM4KxEYEketkmAv78oH8 kMkDhPnU5RIgkSrk+TUNDQU 5OLCBIRUFUSEVSIEVMSVpBQ kVUSDwv dGQ+BDFuNNI8pKpfCSqfNKP icG3sVJDyW4f3KpNbHwV7UI neG5TuNNGwekhqXx15gC5zK iAwLjA1 NSzmN2YtzbC8PTVwkWDlATx tEWL2Q82xm3P0GDTfJHOeST H0wBA1kZ5myRuacppjjFYyq DsgdmVy hKjvJXvnFQykV150CAFymFz mLtDoZfB8PoJ4JAE1E4TvAk r8UZAqhIwzEB3tdHWlPAsiM i3nlPxq yRlvWW0nVHFwuffkIHQlfJ5 sIWVawCJvbDewFB2oMKKyvc hfc519MfQbXJZ5HBKnlPKlF 5YhqU3e PyZpFAZpRTWyZ3LlyMMgCJb gY948DXllFtJ7BAPqptIqZ6 MtRAWmuWebTlI9c7F3Fy2zZ SBZZWFy czwvdGQ+PYEsQGD4aLgcEEp vINDrmX3tLZRzO7t2PxUlVj U8DQsvE3JqHASgarhuDx25q R0rThZk AfU5RNffA9EejgK0IUDbjSH sICyiYVC2T21uh4A7EVMgRN LjROT7hFI4tG7pzPzgxjrkh GVmdDsg qkCnkBmsLOmqRRzyA149IYQ vcDsnPkZFTUFMRTwvdGQ+PH QhMDX6qFolJKvnPFLphA6tA ZEfH2h8 TbQhZvH3FUyjL4NfSZJxypm rPp04bH1oAiNgCsR2FRjhT4 HvsdI6KOJhoGJpFEvdYZU1F 49hn0B6 PTHrLGJtFWH1pWI7yD2wiTc nbjogbGVmdDsgdmVydGljYW eaXRnfV811PTBidAbxLf4QX Z68YW37 Q2WhMloeoSLnvWW+PHRhYmx lIHdpZHRoPScxMDAlJyBzdH whLL7xId7kCIKmUFMmiNsfh HNlOiBj o8rrJWPjVIzsWE9xfYftZ8V czUH4DPLrp5r2Eo53P08kV8 JvdXA+RNVlhXI0hGR8uR7cN zAlIiB2 KLoyE534YyOabQPdEawyq1x lg3nwuXb1KcIwVVLzjnOufW baOYR3h3WuGx25R84mYLbzB HRoPSIy OGVrRDUjiMrlyb6asD1yKp6 +AEEzkOE0bMP2rQ6oIsFkAg U6REddJ106RbFpaHFwHfizN 53zQ2Hj dXA+PCZwIjr6KECgzOuwVE0 xfMBcTPhsRn0nWJW8DdUbZo VzANshM3RjLSFiwfhktxjaa LI3QISg AOTvgP59Fn2ikBxtLl4aGEX jIFC7EKMxuYLvT5FqiN1rGz CoDIEtGUTxP4XwkLEbLDiuM 246IGxl ScL3NZYbyhXoE9TxYGCrtMi nYpH6r7L9Lm8ReWrubHKhOJ 9eJdJyHHj0X5ZgZnh0VLHpn YedNM3v jULxWLpoBp8xoDlbfAeoIK1 gBQQomohua018AzSav7ziHO VihHSuNZycELR9G93qv6S4S CMwMDAw MZX6wQR6fY9noFskjhlheEV mdDsgdmVydGljYWwtYWxpZ2 39EFSfvAcrFfPEHzk8G2MbS vv6UXEo bXwlQX4nsVVkUQzhUl1oeAz fgOdyUI9qDLHmtaisz074Kw Elz7lfTBRidOYoAIdfSYO0X 64ba9B9 ACIbZFPiNKW7nMF0bV7jmYz nbjogbGVmdDsgdmVydGljYW abNNsfR988QOAnfQtxKm7YG gf0S8Qb Frs9TMJckDexWY0arWGtZMz sTl8thPntyDmoRD6jOIQedx xwk380KaPov7jtNGXagZDcN GltZXM7 R56xy1M1LFTlUQWtGAV2cJV 8mN4xuRcugaluvIRrwMxghy AmzRqrKEiwKKppC553BXCtj DsnPlBh eWVyOjwvdGQ+LC28km02B5O aKstuAsd9PTBbQMJ2kZD2lH [id number] yLsci4d b2x (more content not included)... Normal [facility] Compliance Drug Analysis, Ur LCon 10-02-2024 Summary LC FINAL Invalid Interpretation Code [facility] Comment on above: Result Comment: ===== [...] test is not intended to distinguish between rjkqw-2-yaznhzipyqklpeqgphlv, the predominant form of THC in most herbal or marijuana-based products, and ezxme-8-zpkdbzyfthypxkwndryj. Lamotrigine PRESENT Acetaminophen PRESENT ===== Test Result Flag Units Ref Range Creatinine 45 mg/dL >=20 ===== Declared Medications: Medication list was not provided. ===== For clinical consultation, please call . ===== ToxAssure, ToxAssure FLEX or MAT drug testin -Technical component - Data analysis performed at [address] [address]. [phone]. Liquefier César Bains MD. ToxAssure, ToxAssure FLEX or MAT drug testing: -Technical component - Result certification performed at [facility], [address] [place] [address]. [phone] Liquefier César Bains MD. Performed At: [employer] [address] [place] [id number] Brendon Tsang Ph:[phone] Performed By: #### 1 [id number] ####[facility] (DEFAULT)[address] [place] [address] C Urineon 09-28-2024 C Urine Mixed skin, or urogenital damián. Clinically insignificant Normal [facility] Comment on above: Performed By: #### 6 [id number] ####[facility] (DEFAULT)[address] [place] [address] HBsAg Screen LCon 09-27-2024 HBsAg Screen LC Negative Invalid Interpretation Code Negative [facility] Comment on above: Result Comment: Perf ormed At: [facility] [address] [place], [place] [id number] J Luis Gray PhD Ph:[phone] Performed By: #### 1 [id number], 7333805, 3588017, 37250808, 7703566536, 48324293, 1214274878, 08106389 ####[facility] (DEFAULT)[address] [place] [address] HIV 4th Gen Screen w Reflex LCon 09-27-2024 HIV Scr 4th Gen LC Non-Reactive Invalid Interpretation Code Non Reactive [facility] Comment on above: Result Comment: HIV- 1/HIV-2 antibodies and HIV-1 p24 antigen were NOT detected. There is no laboratory evidence of HIV infection. HIV Negative Performed At: [facility] [address] [place], [place] [id number] J Luis Gray PhD Ph:[phone] Performed By: #### 1 [id number] #### [facility] (DEFAULT) [address] [place] [address] RPR, Rfx Qn RPR/Confirm TP L Con 09-27-2024 RPR LC Non-Reactive Invalid Interpretation Code Non Reactive [facility] Comment on above: Performed By: #### 1 [id number], 2880733, 9364500, 83482917, 9378328588, 46071628, 5306676200, 56356873 ####[facility] (DEFAULT)[address] [place] [address] Rubella Antibodies, IgG LCon 09-27-2024 Rubella Antibodies, IgG LC 2.78 index Invalid Interpretation Code Immune >0.99 [facility] Comment on above: Result Comment: Non- immune <0.90 Equivocal 0.90 - 0.99 Immune >0.99 Performed At: [facility] [address] [place], [place] [id number] J Luis Gray PhD Ph:[phone] Performed By: #### 1 5137798, 0330563, 4193573, 78187713, 7678007159, 67371725, 4292993910, 88731277 ####[facility] (DEFAULT)[address] [place] [address] .Auto Diff 1on 09-26-2024 Auto [place] % 6 % Normal 04-29 [facility] Comment on above: Performed By: #### 1 2766464, 1756349, 6716723, 10270550, 4888289923, 66776350, 7193845770, 09450204 ####[facility] (DEFAULT)[address] [place] [address] Baso Abs# 0.0 x10 Normal 0.0-0.2 [facility] Comment on above: Performed By: #### 1 2895319, 6638080, 4627489, 76807127, 8238493879, 45960031, 8924196506, 88311408 ####[facility] (DEFAULT)[address] [place] [address] Basophils/100 WBC (Bld) 0.1 % Low 0.2-2.0 [facility] Comment on above: Performed By: #### 1 5872494, 1452188, 4963414, 22125532, 0370286306, 32984807, 9403803579, 74880153 ####[facility] (DEFAULT)[address] [place] [address] Eos Abs# 0.2 x10 Normal 0.0-0.4 [facility] Comment on above: Performed By: #### 1 5748903, 6296370, 0999757, 88278788, 9539197739, 79687484, 5846050531, 73570685 ####[facility] (DEFAULT)[address] [place] [address] Eosinophils/100 WBC (Bld) 2.0 % Normal 0.9-4.0 [facility] Comment on above: Performed By: #### 1 1231041, 4494938, 7517345, 31107692, 4631915996, 80160063, 7378374713, 89213131 ####[facility] (DEFAULT)[address] [place] [address] Lymph Abs# 2.0 x10 Normal 1.3-2.9 [facility] Comment on above: Performed By: #### 1 1059527, 4370942, 4023751, 00152783, 7622086866, 16883658, 9197667235, 60490371 ####[facility] (DEFAULT)[address] [place] [address] Lymphocytes/100 WBC (Bld) 26 % Normal 14-48 [facility] Comment on above: Performed By: #### 1 6130092, 9046860, 8109028, 17122272, 2106537005, 01357106, 2145186018, 29233183 ####[facility] (DEFAULT)[address] [place] [address] [place] Abs# 0.5 x10 Normal 0.0-0.8 [facility] Comment on above: Performed By: #### 1 0067968, 3753443, 6607423, 54476269, 1581599796, 53485309, 7660926980, 38404837 ####[facility] (DEFAULT)[address] [place] [address] Neut Abs# 5.1 x10 Normal 1.5-9.2 [facility] Comment on above: Performed By: #### 1 2867218, 8956949, 8200578, 86962141, 9003640883, 16485040, 7584118624, 99858658 ####[facility] (DEFAULT)[address] [place] [address] Neutrophils/100 WBC (Bld) 66 % Normal 44-88 [facility] Comment on above: Performed By: #### 1 3297170, 4240283, 9998941, 08676998, 8304397650, 51026495, 3363599648, 17389819 ####[facility] (DEFAULT)[address] [place] [address] ABORhon 09-26-2024 ABO and Rh group Nom (Bld) Hx Check: Not Found Anti-A: 4+ Anti-B: 0 Anti-D: 2+ DCon: NT A1: 0 B: 2+ ABORh Interp: A POS Invalid Interpretation Code [facility] Comment on above: Performed By: #### 1 3744563, 9114185, 0227735, 06658125, 9036887142, 90039689, 3114267254, 68749623 ####[facility] (DEFAULT)[address] [place] [address] ABSC Gelon 09-26-2024 ABSC Gel Negative Normal [facility] Comment on above: Performed By: #### 1 9837225, 0639275, 8249441, 69335353, 8656822893, 60933451, 4465808510, 64690352 ####[facility] (DEFAULT)[address] [place] [address] CBC w/ Auto Diffon 5 Erythrocyte distribution width (RBC) [Ratio] 13.2 % Normal 11.5-15.0 [facility] Comment on above: Performed By: #### 1 5567610, 0162632, 1343068, 40609525, 3369135969, 93597289, 2364955989, 77279271 #### [facility] (DEFAULT) [address] [place] [address] Hematocrit (Bld) [Volume fraction] 39.9 % Normal 33.7-40.4 [facility] Comment on above: Performed By: #### 1 9578775, 3753748, 0250635, 84259284, 9319855525, 27977975, 2737135764, 36395731 #### [facility] (DEFAULT) [address] [place] [address] Hemoglobin (Bld) [Mass/Vol] 13.9 g/dL Normal 11.3-15.9 [facility] Comment on above: Performed By: #### 1 2322386, 4411502, 5922765, 19073707, 3076184070, 22174603, 7363306568, 05076140 #### [facility] (DEFAULT) [address] [place] [address] Man Diff? Auto Invalid Interpretation Code [facility] Comment on above: Performed By: #### 1 2477586, 7106632, 2720258, 29780721, 3952188910, 09478553, 3401942237, 74582050 #### [facility] (DEFAULT) [address] [place] [address] MCH (RBC) [Entitic mass] 29 pg Normal 24-34 [facility] Comment on above: Performed By: #### 1 8521775, 7323883, 1236169, 87132384, 2793694963, 86925278, 2426548839, 99830933 #### [facility] (DEFAULT) [address] [place] [address] MCHC (RBC) [Mass/Vol] 35 g/dL Normal 26-37 [facility] Comment on above: Performed By: #### 1 4035344, 9719203, 8596696, 78408926, 7910925436, 24344472, 7484938245, 87689375 #### [facility] (DEFAULT) [address] [place] [address] MCV (RBC) [Entitic vol] 84 fL Normal 81-100 [facility] Comment on above: Performed By: #### 1 9378274, 7437576, 8734325, 66733066, 1628598433, 23353915, 0223817444, 87953364 #### [facility] (DEFAULT) [address] [place] [address] Platelet 210 x10 Normal 138-427 [facility] Comment on above: Performed By: #### 1 5032767, 3144028, 1147477, 50171404, 6903011256, 19285802, 1014103368, 57613301 #### [facility] (DEFAULT) [address] [place] [address] Platelet mean volume (Bld) [Entitic vol] 6.3 fL Normal 6.3-10.2 [facility] Comment on above: Performed By: #### 1 8255362, 4766877, 9797683, 66308481, 4005539652, 01814744, 1513945625, 98129306 #### [facility] (DEFAULT) [address] [place] [address] RBC 4.76 x10 Normal 3.70-5.30 [facility] Comment on above: Performed By: #### 1 6216659, 9737593, 4889855, 69205281, 0593973165, 88891936, 3685613986, 91434457 #### [facility] (DEFAULT) [address] [place] [address] WBC 7.8 x10 Normal 3.5-10.5 [facility] Comment on above: Performed By: #### 1 6248377, 8111893, 2725735, 53185902, 7533071501, 54265835, 5456647749, 65395891 #### [facility] (DEFAULT) [address] [place] [address] HBV surface Ag IA Qlon 09-26 Hepatitis B Surface Antigen Negative [facility] HIV 1+2 Ab+HIV1 p24 Ag IA Ql on 09-26-2024 HIV 1&2 AB/AG Non-Reactive [facility] HgbA1c Standardon 09-26-2024 .Hb 13.1 Invalid Interpretation Code [facility] Comment on above: Performed By: #### 1 3732289, 4503368, 3975951, 28562383, 6156309287, 05808440, 7239698076, 90140937 ####[facility] (DEFAULT)[address] [place] [address] .Hgb A1c 0.38 g/dL Invalid Interpretation Code [facility] Comment on above: Performed By: #### 1 1762962, 9957268, 5882340, 28657775, 1936550843, 66087509, 5915783484, 61362658 ####[facility] (DEFAULT)[address] [place] [address] Glucose [Mass/Vol] 91 mg/dL Invalid Interpretation Code [facility] Comment on above: Performed By: #### 1 0420770, 7141199, 2609118, 05008043, 4305093548, 81698797, 3452829603, 25643991 ####[facility] (DEFAULT)[address] [place] [address] HbA1c (Bld) [Mass fraction] 4.8 % 4.0 - 6.0 % [facility] Comment on above: Performed By: #### 1 9254404, 9159573, 3719924, 02598725, 8537991491, 18862919, 7404156416, 88645837 ####[facility] (DEFAULT)[address] [place] [address] No Panel Informationon 09-26 [facility] Provider Orderson 09-26-2024 Provider Orders [id number] GTIFF Normal [facility] Rubella IGG immune statuson 09-26-2024 Rubella immune IgG 2.78 [facility] T. pallidum IgG+IgM IA Ql (S )on 09-26-2024 Syphilis Non-Reactive [facility] Type and screenon 09-26-2024 Abo/Rh(D) Positive [facility] Ultrasound - Officeon 2024 [facility] HCG ( test) Ql (U)o n 09-20-2024 Interpretation and review of laboratory results Abnormal [facility] Preg Test, Ur Positive Negative [facility] US OB TRANSVAGINALon 025 US [...] II, MD, PHD at 21-Sep-2024 08:26:46 AM [facility] [facility] Normal Not Available Comment on above: Order Comment: US OB TRANSVAGINAL No LMP recorded. Urinalysis macro (dipstick) panel (U)on 09-20-2024 Bilirubin, UA Negative Negative - 4(70) +++ mg/dL [facility] Blood, UA Negative Negative - 50 Yehuda/mcL [facility] Clarity, UA Clear [facility] Color, UA Yellow [facility] Glucose, UA Negative Negative - 2000(110) ++++ mg/dL [facility] Interpretation and review of laboratory results Normal [facility] Ketones, UA Negative Negative - 160(16) ++++ mg/dL [facility] Leukocytes, UA Trace Negative - 500+++ Kourtney/mcL [facility] Nitrite, UA Negative Negative - Positive [facility] pH, UA 6.5 5 - 9 [facility] Protein, UA Negative Negative - 1999(20) ++++ mg/dL [facility] Spec Grav, UA 1.025 1 - 1.03 [facility] Urobilinogen, UA 0.2 0.2 - 12 mg/dL [facility] Healthcare CNNURSEon 09-03-2024 CNNURSE Nurse Visit (REIAV) JAZ SANDERS ([id number]) 1995 F Date Time Provider Department 09/03/24 10:40 AM US TECH [facility] REJ REIAV During your visit today, we recorded the following information about you: Charisse Weaver APRN.[employer] 09/03/2024 5:42 PM Signed Jaz Sanders here [...] 2024 5:39 PM Referring Provider: SHELLY HERNANDEZ [[id number]] Allergies As of Date: 09/03/2024 (Not on File) Date Reviewed: 08/20/2024 Reviewed by: Shelly Hernandez APRN.CNP - Fully Assessed Visit Diagnosis:Early stage of (HCC) [Z34.90] Order(s):OBSTETRIC ULTRASOUND [facility] [[id number]] Order #: [id number]. #:[id number] WPOINTQty: 1 Prescriptions as of 09/03/2024 - [...] Status:Closed by BRADFORD DOSS on 09/03/24 Normal [facility] Examination level ultrasound on 09-03-2024 Indication Viability, Repeat Impression - Single, live, intrauterine . - An intrauterine gestational sac with a yolk sac and pole is present. - [place] rump length measurement is consistent with the [...] Performed By: Nina Farnsworth; COBY Read By: Bradford Doss M.D. MATERNAL MEDICINE [facility] Radiology Study observation (narrative) [facility] CNNURSEon 08-28-2024 CNNURSE Nurse Visit (REIBD) JAZ SANDERS ([id number]) 1995 F Date Time Provider Department 08/28/24 11:10 AM US TECH 2 [facility] BEAC REIBD During your visit today, we recorded the following information about you: Shelly Hernandez, MELY.[employer] HANDYMAN 08/30/2024 4:36 PM Signed Jaz Lynda is here today for an early scan [...] scan next week as scheduled Shelly Hernandez APRN.[employer] Mikey Torres MD 08/30/2024 4:36 PM Signed Viable ratliff IUP Size equal Date. Plan: patient to follow up with her ob for care. 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 #:[id number] WPOINTQty: 1 Prescriptions as of 08/30/2024 - [...] Status:Closed by MIKEY HENLEY on 08/30/24 Normal [facility] Examination level ultrasound on 08-28-2024 Indication Viability Impression - Single, live, intrauterine . - An intrauterine gestational sac with a yolk sac and embryo is present. - [place] rump length measurement is consistent with the [...] Read By: Mikey Torres M.D. MATERNAL MEDICINE [facility] Radiology Study observation (narrative) [facility] Xavier 08-24-2024 CNPN Telephone (REIBD) JAZ ASNDERS ([id number]) 1995 F Date Time Provider Department 08/24/24 SHELLY HERNANDEZ REARLET During your visit today, we recorded the following information about you: Charisse Ding 08/24/2024 11:52 AM Signed Pt would like a call back Marianna Ward RN 08/24/2024 1:58 PM Signed See 08/23/24 TE Marianna Ward RN August 24, 2024 1:58 PM Allergies As of Date: 08/24/2024 (Not on File) Date Reviewed: 08/20/2024 Reviewed by: Shelly Hernandez, MELY.[employer] HANDYMAN - Fully Assessed Reason for Visit: Patient Question [2207] Prescriptions as of 08/24/2024 - buPROPion SR [...] Encounter Status:Closed by MARIANNA WARD on 08/24/24 [facility] 08-23-2024 MIL Telephone (REIBD) JAZ SANDERS ([id number]) 1995 F Date Time Provider Department 08/23/24 SHELLY HERNANDEZ During your visit today, we recorded the following information about you: Angella Mccarthy 08/23/2024 10:39 AM Signed Name: Jaz Lynda called today. : 1995 (home) [phone] (cell) Reason for call: pt called today informing the nurse she has been experiencing pain of level 4 from 1-10. Pt has been experiencing pain for 2 day. 5 weeks today. The patients preferred pharmacy has been captured for this encounter? Angella Morillo Seismographer Shelly Hernandez APRN.[facility] 08/24/2024 5:58 PM Signed spoke with [...] closest open slot. Call to patient needed: titi Morillo Seismographer, Lana 08/25/2024 8:37 AM Signed Pt is scheduled on 09/03/2024. Shelly Hernandez APRN.CNP 08/27/2024 11:51 AM Signed Addended by: SHELLY HERNANDEZ on: 08/27/2024 11:51 AM Modules accepted: Orders Allergies As of Date: 08/23/2024 (Not on File) Date Reviewed: 08/20/2024 Reviewed by: Shelly Hernandez APRN.CNP - Fully Assessed Reason for Visit: Pain [78] Primary Visit Diagnosis:Early stage of (HCC) [Z34.90] Order(s):OBSTETRIC ULTRASOUND [facility] [[id number]] Order #: [id number]: [id number] FUTURE Prescriptions as of 08/27/2024 - [...] by SHELLY HERNANDEZ on 08/24/24 [facility] Coding Summaryon 08-22-2024 Coding Summary HTMLBase 64 HkbajworBZa7dNq+PGhlYWQ +GQ1QHWGtP11ufMNpkT7aL9 NMTElOSywgQVBQTElOSyIgb vXjPH5waKElJYFp IC8+BX5oCGYuZfymqMLfx3K 2kDK8D79gcc6aJTzsgPA8CX YkSdWphaxxr9pusWz4WMdoW mluOyBt ZITtnI26KDW2pC29Ab87uWF zsXVlm9qkyZh0GlClVQXpQL W9bVwkIRgex9PtFNBuD52mb TNjw4V9 SOPhuRyywSPyPaJugZT0sY8 gXZbtemrqx8qvythqFqz9eo 23nZMxy0O2mNK8E8YbqgS8O GJvbGQg AseqoLENxC1ulvaux9pwgzz xVlXxFIQbMSe9FBg9BUYinD irWaFwXK98ELO3WGSoawAlC 2FsLWFs jTgdIyQ4d0K7Yv0CY7UNObh qB5VDPTNXTPzxxNQ+PC90cj 15G2LsJtzrUam2ULEbRCI5g MI6xO4f AEEwYAsld8E6bHY2Z3UgfpV lua4bk0shHGUiTYqyT21wbV Uku0I9JRGeqAJ3ZDNisMkbC iBzaG93 Oyc+XFBkoLxyn1CuXjutv8k bo1dwrJv1YtubDWAitpKzhV rhGKY0w7QdVg2yGWDgfCX1r GU0pZ2b KhBkPxW9TIwrY534XoObvWQ zIlnkV95dG7HlwPK+PHRyPj k7TFSpyGbrLY3lY2EoXTDxi mctbGVm zBhuXZ0jOKTxxxflSVHgsM8 lDVDyB0c1BpNjDqW9POhqT6 DaGRYhczucYr00xU9oWkFdA nO9QHok P7QhwwO9LOCrmXFtFZciLQB 3E51vk3H7OCVoPVQmKEU1jL A0nM2wcVqxkdtifXSczWsrr mVydGlj LOcwUJsdL090TEXwgHsnEfK vZGluZyBEYXRlOiAgMDUvMD cvMjAyNTwvdGQ+QNOrAUF8z WxlPSAn sYDqIZmzQt0nkGfynQruHH5 lDTQtuxapVZVjeD4zHVPpsA IxpZgwPT1rBKZciiiyt578E iAxMHB0 VQTjvWMnU6HeeF9vZcGoVSZ fRMErP1OrzPNkVQpdA568ML fjRkI3FNTkjeUcS9YeXOQef WduOiB0 j8M2Sj2Nc5QtnpkyC4RhrZQ iTgHuPcxaLQb2D3MpCjofkJ I+EW12PKOnUR79EIf1PWQ8n WxlPSdi ICJsA5PsuM1cZpDvEYJwILG kOyc+PHRhYmxlIHdpZHRoPS vrUVElLxFspZujTT1aBo8xE GVyLWNv cCkhcNCmAeMan3zzBWInTTb eXF8sqZxvZ7AlmAB1OFRmy6 m9Hm92F44vW1SyfWQ+PGNvb RX1cXF5 dH2kIgHfKlQ7FFooO797HzC vmCOtXulan6xfz4xeuJe3Zl R8QKHaylXiaFfgNBY9s9NuQ h15J52m IHdpZHRoPSIxNSUiIHZhbGl gzd5ylO0bTh8+WEYgiPA5sV T4cL0zBcVoJpG7DAdiD779X nRvcCIv Xtkgc3wuv3kxjEt1SxWcQKQ mbaLynLhyHPD2c3FsKn38V0 UmpMhan0BsEso1lr90dLLth 6O1zTQ2 M7MtNFRwlwjahQYoqTepJQ7 gYHWdxgwuIEWskZ2aLRAzC5 q6LfYyCuQ0ECzzB2GpzlZ4U GJvbGQg WVLduHWEiK9ahlxus0wwhcd kPbBpKLTmGHz0RXz7BZMgbZ noHmJqSBW0KaK6XFQ3lHKbh N7wxTkg dmyvrV5xLuz+OOE7hNYyoTT HIK1pPxzkxDO+RFYrRIP1eL lxATsaFEDklU6hPAJqX1u3C iAwLjA1 UAxcS9TfxyA5AVXsxLHkEOZ slEEUcC8omykgd3tvtsswYp ZjMXZwAXn2OAs8TXWczFatA iBsZWZ0 EjQ8NLM1wELtlY1hlPqvsmt ahU6gDex+IwpurOzcOGC2TL c2V1DwGhs8SKMujMrfGZ1ya GFkZGlu Hd3oeFcpcCzaMC6yANEcljf az850BaKqb6eoXEWdePKiBE kvJND4Z03gk1C1NLXjLQAkT XC7tPW0 iP3acJrufkhumKXddQlxvgI ipMaaOOrgLBymI969VPPfxZ wvRuDpOBh1I0YkHwm8EPPoc CrsMS6d gQWmNOclZs2bsYymxTezCJ6 jBQMffeoqb782MeYeu3mpFA IyyGXyLGtnQKP1L27nd6B7W CMwMDAw IHS8oVW5vV5whDtbcstnvCH mdDsgdmVydGljYWwtYWxpZ2 47JEMyxHjuCuQjhZw6M7MzQ vb1ERTg tSshRZ4iaGUuPZjgCo9teUl nlJpnBM1kRGYikcdmd661Ly Tyl2ihSIHonQLsFSboGXU2A 89xu6M8 JUYdXUNwSIU0rUG6sY6cnYr nbjogbGVmdDsgdmVydGljYW ajWGlhM704JWJktEjwScUkt GllbnQg IBzfMOx5K3WdBrlatXH+PC9 1CECpOL35uNPpbABpn7oqfW y5IqKtLIOuFJJ0nQeaJAmcd 3JkZXIt R99dzXCsq4S6YERroLyjdXA wFuAskEX5nK3kCUjybwyus8 ztifuaBeowc8ozlm29uC87L 29sIHdp ZHRoPSIzMCUiIHZhbGlnbj0 hjE1nBk9+LCJczOZ4bSL2eN 8fFFHjHkP8SYxyA490XvTnt CIvPjxj x9haz4fzrBl5WkV9QWVxzhJ miFesZSC5b0GnOq02G70eBC dpZHRoPSIyMCUiIHZhbGlnb w7szK8n Ii8+PMHcjNK9lJJ9zZ4fNiC hPhX0VFumU374SvDrwCMxOh wsQ44uX1MnwCF+PRTtFld1K CBzdHls PV0wjACvPDagRg2aALM1KbX vZpSiEWcqN1KcQOUdtmwlrw yxmPG9MEZpPFOxiG62Rw1np DogMTBw tUTJnV3efsbov6rmrqsbXpR tROEnKTh3IYx2EYBaxTjsTb KwLIQ7HwS6XII4nULokC2yz Glnbjog sG1qA5UgINZhkxlbZv50kW1 aZpWyIlF9RSlcXdn+TUNDQU 5OLCBIRUFUSEVSIEVMSVpBQ kVUSDwv dGQ+IPDbRNL1eXiiHWbhJPC oaB6aAKOlC8q2McXyBfX1KZ qkM7EkOIQlmwyxCv03jK5jB iAwLjA1 MIpcJ5JnffQ3IYGntRKoZWz qWEP3Y09pv1Y8SQYeQKKoXS V6kOD4cA9vpMfetponhHPxj DsgdmVy sKskOLyaUWvhO603GMEfgXw nNuZuVhO6WfU1AZQ9A6ZnAo n2CHMmlWygJM6jwBStESvfH u2njVuj uKuuSL5oWNRszvmvVLIdeF6 jLEEtkWAsfMddNZ5cLKPhxm ghl594XaEhNRD8DMXcvVMdR 5OzgG3o LxHsYZXzALBxV2OxsXMiHLu uX111MGroNcN2AASokyUeA7 GdDZFhzTgbOvI9p9J5Oq6hB SBZZWFy czwvdGQ+KGRnTNN8fFcnTHu aDBYopR6mPNTxN7e8FnQqAw S1BMcaO2EaADLgpinyTm95w K6nHwHl PxS8GYcqO6FkrvW3DQTqrNX nHDkyJWH6Y87jf0R5YAJiHB ZvFTE7hCV6vV4ouOjtfbpco GVmdDsg zeGekUveFOwlOVfgJ176ZAC vcDsnPkZFTUFMRTwvdGQ+PH XaWUC9pMmlKUtoQHRfrR0sJ GHqP6z2 VtBzCfE0DMmrZ5FnHSLkbhn zDx27iF8qXuXgViI4OWjcV1 EmcvV3HSQayYFeYQabXOT7R 38xg2Y8 HDCmGTSxJXY3dST4jV3zlTr nbjogbGVmdDsgdmVydGljYW pwOKbbJ148ERYovHezYq6HI W97YW38 M0KeCsxcfDBxzCC+PHRhYmx lIHdpZHRoPScxMDAlJyBzdH pzHV4mMa3rDOHjVQJpgHiet HNlOiBj g6kxBOZeVVgdYF3jyEiqZ1J srOC9DISwg1x0Da80V08tR2 JvdXA+LIYlyLQ5qXT6dK6oX zAlIiB2 YHbtW140NoUzaVLkOhtrc7d br6mvrGd3MbFbXOTfjoZfkX aaQQO8n6SiNv34T63bQDjzS HRoPSIy IWOkCYTuhXplue5uhR0vQs5 +LEXkjDC7dHC9fW6kUtPyQh H1TZmmB747CyDevOInBszzO 04rO4Nx dXA+FUOrFwf3FJZhxUggQE1 mgEHgXXtoIk0eSOD8ZwNtLo WfJSmwD9TyMQVcniidxbpif QZ0MTNx ZVJsxG42Jx3ekTlrTs0hSGM jIBT3BRBtpGStY3UssO3sOz XnHUNbCFSkM6VaqWItBDhtI 246IGxl JmP1YMHrdqUpT7BwOCCwoWi wIjX1s3I2Eh2MjImoxBJvPD 2bMyTlYFp7P9YjUwj6SUQbd GmiEB3w iEPzDTuuGe5zdPdsdVwsWD3 nGSCktlxvc401TwEoz3wqFU MfaWKmBPwkWEC0B87vg8M6X CMwMDAw TJJ6zEG0oO7wfHghruluyIL mdDsgdmVydGljYWwtYWxpZ2 49AVCmkZemYaHGHtg0C5YhZ vq9TBUd kJdnFR2fxOIxALntNr5crGg tdWcdIC3bBFYgsgpne597Hy Ccy7tbXEXffXUuLGmvCZF1J 52ha1N6 XTNcYDNyTRJ7mUC7eF5ceBl nbjogbGVmdDsgdmVydGljYW ilAGfwO443ZQDzhKsmGa4NB lj4O7Sf Tlw9MVXydSelII6neWGoOMx aQn9jfDbsrNocRK0eQIOiqa rme927UhPwf5scJCGxnMXfE GltZXM7 J50zg8D4JLGnXBGwHOK0tHL 0aA0owLunvfcbcEFjgTupfp ItjEawWEjiTJqtZ252BWWyb DsnPlBh eWVyOjwvdGQ+PQ93ix13A4A cWpobLya5NIMdWQP3bPG5pR 0lXQRaTUttp7X7gFU8S2Znr mMaan9a b2x (more content not included)... [facility] Coding Summaryon 08-20-2024 Coding Summary HTMLBase 64 TwjyxrrgTSn1fZd+PGhlYWQ +ES5XEPDjZ73cvKOquU3gB5 NMTElOSywgQVBQTElOSyIgb gJeME4smSRjVZKt IC8+ZF1cXNIhLchugOXii5Z 0qPK4U58reu2uEJwzuUE5PT OiImNzgsley8eeeFj0ILqvE mluOyBt JOUorN85GMZ3rU02Gv79zQN lxTYyn4fliPh2GiJiVOPrOC Z4kRpwJRhwa7DpONOtI36gx WXzn6S6 KUBdmCuimTHvBkGfzIR2wL0 xMLzzoiitk7flqlvlCue3jj 10hZOzx6M1mLS8M4SmhbI9E GJvbGQg VkpakIGZqO8xyjrju2gxuvx gJdKgJYIeMZp5GUu4PLBdgK anRnAcBF57WSA7TYQzdwUlA 2FsLWFs yOkeYfQ2u3P5Io1KQ9SVOce cV8ELVBHDOMdrsLL+PC90cj 31W3DdSyoiSgg3XEIvONY9l AZ8lK5p GOXqOBphw5T3bBE2F7BhzmC ayh7de9zsPOWmNTdsU64keZ Pvc4O9PTNwbMQ4WSZpxKbkA iBzaG93 Oyc+HDWjpNxbz5SsGzuit6j yb8pffIk7NgllCCBgwfWduH loQKI4b7EnGz4qVALinIA9j GX8iH0m SlAqDtU3DZzgG914EfMfhVA kUeldP16wL5PrzMK+PHRyPj i1GQTfoNdqSP1oX6WvAKFuv mctbGVm xIdbTZ6kKHBanfwvDUQtuF1 rGYUqB6g1SiNyTbC7AJojV8 MvBLDaotecEy48lT4hUbGuI gG1UVbp T0NcafF0DLXgzZCuWAyuVPV 5M06wb3P9QVDpHCOgWIB9aH E1tP2ywEgirhyrtKFknEvug mVydGlj JAvwPZqcC364JEOswYqmIeY vZGluZyBEYXRlOiAgMDUvMD UvMjAyNTwvdGQ+QKWcEBB0a WxlPSAn dHQeDPphMg1gqSdidRjhLY1 lUMVawchdZLTxvW9iKYBsgK SwkKwyOP6vTHXuntgfw526S iAxMHB0 ZQDesDApC6HhhJ1iTwLyTQR pQGBbI1IdfSPfIAwdF876DA pgSlI1UTNsgePdP6IoRSKcc WduOiB0 c6N4Pc9Rw4EfmdkkV2PviAQ hMoEfBpdeALf0V1EbCcvcgM I+CY62NLAtRJ31NUz8PSM5h WxlPSdi NUYsV1KzdS9bJwAsQBEfTDI kOyc+PHRhYmxlIHdpZHRoPS ozVKKlSmFdhHrgNK0jJf3aR GVyLWNv lRoqxDKeCsMyl9mxXWZxYGr lQE3mxAxpO8ZtzMM7LIHki5 r9Jb20U32nW4UcdDU+PGNvb VO5kCS4 aC8cJbEvMsV5QNroU446AfN ffXLxBnikc6gkv2kgpGu1Aa G9BETfloUyuHqvVJS9s1YcH h92T58v IHdpZHRoPSIxNSUiIHZhbGl eou8uxI1wIc6+FCTdkYQ1lY T8tD7bToAcYzE8VZneY728I nRvcCIv Cgsgr6lee3oexUb5FoPjHCL qauCusLgeWSN3x2GzFf21D2 GlnYzsn8JuWfc6pp20sFZhw 3A7yIS2 X9WvTFMrcdiduLCxwAxiIW6 tBVJqnkpjPIVvpG0lMPByQ5 m1LoGhNgU9HYyuN4DgzfF2S GJvbGQg JVAwtZEEbS3szpbqy5uwdua dXpHdJXDwMUb5MYi3AJXbiC ykKzFjXSN0XiL2RIT2wKHbd I2uoXej pdpqbX6iBkh+DOA2vAEguIC HKZ5gUiavhEP+GTNiPKV2qE tqNXksVFXpnG5hANEfJ1h6H iAwLjA1 OBmiU7KqrtI3FRSzjHSzEAV izKDQiG5whbzgn7zpdrmrPf QsXARqYYw7INy6ZBMkcIlaG iBsZWZ0 TaQ9LEO3uTUgoN3msRaowxa frP2fBqs+HdwgkQkjPNL4WD x6Q0UhPra7HNPieWfnAK5pn GFkZGlu Pa0dkGnvzEqyPA0fDBYsvew qg705JrTjh6liDUTzkJCrWF ruJEJ1W72qz1Y5VGPvSPXlX VE1nAZ7 oY7uqNstwrohqYOowSadfxG xsXorNRsnMVrlQ101XCGqnU whKwVgYXo5W0XzDgx4XRLbd KidJM7j pCTfDWipIk6jxPydxIfgSF9 sJMMyshpuf093VfDuk0ptAO XlfDFkAMjwCZD4W00pp0L2O CMwMDAw PUO5jHV8gE3meCfdtrrgsBZ mdDsgdmVydGljYWwtYWxpZ2 01KHGfpKfnRlYedKm7I5YnY an4QELk eXzdHE0uqBMzCVbrWr7qoOe osNgqDM8vCNGtiuijd757Pg Dis1wvWCGabAWxIAazBGY4G 24rp8K5 LCSqUSZaKTW9cDU9wS2ypXy nbjogbGVmdDsgdmVydGljYW dsIMjvW385DCQmjSjnFkMtn GllbnQg YYzlSJc2K3QaPxlkoIX+PC9 5JSWjEQ86fRElzOUbt7kzkA n2BhVeSTKbNEC2aKccEPqnk 3JkZXIt V50poZUcy6F4NOPfdDsjnSB uLpTkqLZ8kJ4kCLcpgxnnp0 labzbqSpqyj6enjc58dR35S 29sIHdp ZHRoPSIzMCUiIHZhbGlnbj0 xtK8aDc5+EOYtrDA8vLR1pZ 6vHYFjHoS0WCexB203SlYmu CIvPjxj i2kyj6wbeDs8RoK2JWShwnO amUogXLX2m2JyYq72S40gFA dpZHRoPSIyMCUiIHZhbGlnb b5paG9w Ii8+PFIqbQX1wIQ5lR6aMcT qHgQ8SWhfZ111UwIrlRInDf uuB08xO1LkoYK+XDHxUzc5K CBzdHls KX5hyJMpMDltRk9nWLE9ZeI uNnRqOAwqY5YxAKAtizvgsh yeuHP3LOHbJZJrwB86Zq6fa DogMTBw pGDUxF3vusaty4zbqfafHxG mNNIvDWq3MMf1RLLfhOaoAw LiMZL4HeP0TMK7aLVmwP9fy Glnbjog qJ0gX8GzUQGwgpgrTh51kG1 dJcLcLxK6ZLjyPwx+TUNDQU 5OLCBIRUFUSEVSIEVMSVpBQ kVUSDwv dGQ+MFLmMGR2yKuaQTrqCAU zmS8tSEOhC3l0QlJbTbA1FB ywH3BgFOTwgdygFr84aN3xT iAwLjA1 EPdoZ2JhzeZ9PKMskKBmJJf rWOE5W59ou8R3AIGlVYHcXL U8hQI0zU1rhInjtreueMHrs DsgdmVy lOsaBGuaYMwzE841BFWpxZn jEuPiQrO7FqO7LAK2D1HdDc i6BPNrpHilEW9qsERqPMqtG g6edJdg sDlpIM0pEOOklbviGLLjgD4 qZKAxgTFqnXwgVM8yYCJclq kql489FbWgXIX8SVFjwRLoH 4EczW5b RoIgOYOuFZFrI0YrgELyOMk fO136RTtsVbT9FHVhakCaS9 ShOGTrzEzwXgR6m4R3Ad3eY SBZZWFy czwvdGQ+WHIxSAJ3sIfwZXg yPCSrtG1xTJIkS4h8CpUtPt M1TAreW0RaGHFetaghVh28t Y2xAkGq GcK4KNdqL6KygbM6VFFpuIZ hBHfwLHA6J08ii6Q9UTRnSX OaFAO4zED0aU5bqWgnqhzpo GVmdDsg tsPloMutNPwjWOagW121UCN vcDsnPkZFTUFMRTwvdGQ+PH RuPUG4gJoeOLebRFUamV8sZ CWtL4t7 DuFoFbQ5VAjvL0UhCJJwtqi hXh47yO1lOdBiVyN2USzvW1 BnrkO5NQQclEYsHPyuATH3F 61oy3A5 LRUrQYRgSFJ4uVX4mS6eqFh nbjogbGVmdDsgdmVydGljYW ooUKrwR781HJScoUnpRe7LW Q15NM10 P0FwLisaxUKqaZO+PHRhYmx lIHdpZHRoPScxMDAlJyBzdH toKA3fFf5nPYZrTPJceKalb HNlOiBj d0vmEBJxWDlyHE9dzWzvS9D uaTY1HNOve1b2Bs85Z25eZ1 JvdXA+YWXwiJC7mRI9uK0oF zAlIiB2 CYroX873MnOriGZwPcxsh8k xj2wtxVa1YrChSSNjynRlaT txZML4w0WoBo58G82tJJsnF HRoPSIy GLNzWOWauXyqwh9atB0ePp4 +XUSguHZ0pDI2vS8dOnUfJb S4DZrgK901NuKfhETkFbzzQ 31mW3Zt dXA+NWSpLsy0HKBsgOjxCZ4 edLVvYZqgMh4rDSC4BuWtWt HyPKekQ5ClYKInyamrwgdvp HC7EKAk ZXLdiB16Ca9saNbtEi3nYCB mDWA5UINyeYUyE9HdkR8uWz PoSGIpEFSzN3BokZNwPVfkE 246IGxl FqS9QSWwsjYrP0QtKCOawOo lLzC0x8C0Wf7QcNshgSAoNE 4iAfYaNAr6W3BuUyp1DJOmn MzzFL4g jQWfORuqMf8ybUjqjSxgAP0 eSTKxcptsl581WeVfx9ooYB NrjENmQYejFMN5I84ff4X7D CMwMDAw MSE5hMD3sG3hbUwaanavmEH mdDsgdmVydGljYWwtYWxpZ2 45TLOazFchYiGJSrt8F4MwH at8SVPb sHtkHR4yeFWbUAwgYy4lxZu bnDctUO1wNBHfnwdae018Wv Tuj1vgHHZzoHRmWHhxXZP1R 72lv8O6 QMYeDXDxKKZ9oFS5sF6ehVq nbjogbGVmdDsgdmVydGljYW hmBQtwY907DKFalHfkXl6KS lu4L2Kt Iul2PULajBuoUX2umHInUDb cLq3xrLbxxQgwXJ9kIWZuxu wrq651SsDtr4ftFYIsyZHcX GltZXM7 U71za4Z6VWYmZYKxZHW6mSX 1vG8ouXfrmdwwbUZmuVdzdb JttBvqWCqyBWieQ558JNSpo DsnPlBh eWVyOjwvdGQ+EF85cu50Q4R rAygsHoc4MTSxTXS4bWR2jW 5nAZMkVZeqf1J2fOZ2R2Niv wZgcc3n b2x (more content not included)... [facility] Coding Summary HTMLBase 64 DqdhpuceRWn6vPu+PGhlYWQ +KA5NJXYyY54ijITdyD9hI9 NMTElOSywgQVBQTElOSyIgb jRmGH0fjSNpBVEk IC8+BR0pYLWbEnqslJUkr8O 9kZJ7K62sud3vEKnckVY1JK QeTqKrnzbam1fsuLr9PKkhI mluOyBt VIMtxI06QQD7xO96Ji44lCY ozYQlk7ymjMw5UjVeCTOpKF F6bTzdDTspt7MjEJZtG12db DPkp8P3 CHGeoYlygIWxOcYqgVA4sP5 oQEgnzgqnz5pmqxqjSrc2nu 69cXIaz4N1vYJ7V1GywrS2R GJvbGQg MjsbwPSXfT3qdcbzo1mkenh zWqScFPRnJFc4ZRp0IEKlxU urXgKiSH40TNN6MIKhspMnM 2FsLWFs xKcdQfD3e7T9Jb1QF6RQPco uR3WIALLRDFzxjQL+PC90cj 25U8JjNzlmEyq2WGVsSEI4x QX5jF0t GRQnSPibl2H9oVD6F0FtvbT idw0cn0hbLJVjZYchE75tyR Dms1T0HYPscXM9YPGitWuvU iBzaG93 Oyc+LMImrGouc0GqFyjwy0s ga5qpoYm6VyyeLNBnxtVgrS izRCP1d9QkUv3fWYWiqPW9n IR3bP5k AkEfOyM9UHndC208MuKbtUN xLhbkJ50yR2QpfCU+PHRyPj y5MTDukLjmYQ9nN7UdACUjo mctbGVm lGthOT2mXAYsqoykUTMbcX0 gUPDjN5p0KeHdZwK1ERbbZ3 BwTHThgbqyTw80pK9uUlCsX qY5WTvo G6UokaG5NIUhuSJiOVjjYQZ 2F62dd5J5BIBcLXNpWPW1jP L8aZ3qgMzylhvejDSkjZbed mVydGlj ZEgfNRedH974HQHicIytXbN vZGluZyBEYXRlOiAgMDUvMD UvMjAyNTwvdGQ+LTKySVV1f WxlPSAn uHJoTMtdUk3frPfqoWhfRH0 wAAPwsntpQIGafM7bRGLveI OuhSbrIM2oDBDlppmfo757P iAxMHB0 AZPkeDKzP6RatF4uDrAwRGC tDRFyW7VkgEYtZClzK800NW qtXgP3IOTxfcSdY4JxZCSwc WduOiB0 z5O1Fe0Qy5LfzjhbE4GmaJV gDiGgWwqyUNi3Z6JkRbqhdQ I+LO81SWMgGR68IPn9RCX7h WxlPSdi UEDfV0PwrB2yMqVzYENxEOG kOyc+PHRhYmxlIHdpZHRoPS tgRDNaVgPegUeePY3oSh7fW GVyLWNv cAvayLWaKsCek4vvTUMjBUw jWF7fiBekI1ZuxTD0BDEqq2 z6Is61G57pO5WowFH+PGNvb GZ2hHQ8 zR6dNvJcSbM8LMnaX956QiD kiBKiYvkpn5ccb3mdrGw9Yf C7HFEsodXvcHigROH8j3DxZ g49H64b IHdpZHRoPSIxNSUiIHZhbGl rwz7rjD1mOu4+YHDpqNN0kT Z3qB0iTgGhZaF5NAelH032V nRvcCIv Jlrcl0lek9touKo4SaXqUWM qbgWyvYfsCQM8i0KcZe50O7 DeoWjlg8DkYkv3ru15lATbj 3X8qVP7 Z3JxOMArxrwkiRQayJxxOF7 eHVXbnkxgIALsrE5aIPJtT5 l0CnMmCwS3LRdkW8EaumS7E GJvbGQg HWDhpJCQkD4ptaxsa8tatrj gPaDcRYEeLJc6XFv9TRNvsB mfOlPnEXE8MxZ3CLK3vLKoz D4gdJuo jypmvS4qQxf+JRY5uAVsgZV HDS2jHklmhIH+HWKgDNW5lU kxLGtjFOCwdO2tNHClC2g1X iAwLjA1 BPtuB8MztzZ9YVAsmCGyIGA wqPVRvH4gemtjv2nezkrzNl RqMEAaUKm9IRh2RJBjeIjpJ iBsZWZ0 KcV4XTT5zCCnuD2sfEjkcic neZ8kVgc+AavcwLfvUUM3WW q2Z9VjNah7WWPapAxgCK3as GFkZGlu Qg3sbCjsjGdnLU5oNWMfxpm mr170VzFak5izQBLrnDQvKK akVGW4V73hr9H4QNKzHCKhO TW2mXX7 hV4hiGpkheokeTFraFetkaC nrFfnJLopJXtkA286SECwnZ dkIiUmJFm0C9EdQpw7RWMog WmgXV1h dKNdBNqvYv7qbXpyiXddQS5 zMUIuqpfft576RnUrx3jyIB YerFBmAWqaHTA3T29qa4M9V CMwMDAw UIH7aSJ2jM0wnLfbdfyseJB mdDsgdmVydGljYWwtYWxpZ2 94WJXprJdcBwCbhRf7Y1RjV ch5QZMv mHscYZ6mnFBnECzsGf5ktJc cnPsxVI6kQDFarhjzf749Ad Rks2hqCHCtfROgLTlrDIL5E 43wv0T5 NUEyQTNtZBO4mGG8wZ5alYh nbjogbGVmdDsgdmVydGljYW ekPFhbP917WYUckRhtAgJcq GllbnQg DBxnSBl1N4QqUtthoSQ+PC9 0LWAxBL47yJClcHKye7eamO q8QaQlFMUpUIG2wRotCTnvk 3JkZXIt M91ceQJxn2X9UTMurHhxeKM mFbVxlSU6nN0fGSbhfeaxy2 donocoPqrwr9zdzm96rP64V 29sIHdp ZHRoPSIzMCUiIHZhbGlnbj0 wgD6xJy2+LFYtmSM7uCH9bQ 4mAKPfErL4LRoiR043YsYzn CIvPjxj w2odf6ivsLu0YkL7NPLksaP vmVsmYQP1m6QxXr38Q40yXS dpZHRoPSIyMCUiIHZhbGlnb k0xnP6r Ii8+RTXjtSM8iGM1qM8cArC hJlI9RKcuO773XdGyxFOdMw swF20sQ7DltQQ+UMWiMza0G CBzdHls CD7orSYtNKufHd2nGTV5KgJ mHpKdEJvbA7ZvOUVflzmhzv iikFA6NTBoQNZefW98Ld9uw DogMTBw iWVTwJ9ckjofz5nnuoaiKwO wYXIbPEk5WQv1AGKaiFjnWj ZfRAG6XlG4QQC1bXTtcJ5zn Glnbjog eY8yD8HiVAAvmfqqSe71tM7 nBcIdCiI9FTxrLdy+TUNDQU 5OLCBIRUFUSEVSIEVMSVpBQ kVUSDwv dGQ+UPAfSCL9yHzqVLnlOBT nqQ5tWNIqW2d1ZkFtWpN7BV xiW8NgYTIucgagNg05eX3dN iAwLjA1 FBdkS4VjecT2TVOiaRDfHJy hCPH8Z39ge6L2MQFoBYHcVS X5vZI1xU0zrJaqgqsnuMEyb DsgdmVy uBzrIUnnEZbmT485GDVhtIy oDzBaZpU4KrH2PLU5H6WhLt j4JKVhhXdpUV7unOQxICcnM w7mnPjm qEdgOW2qZPEvzitmRUCbdN3 vAQQfgWZhvKrhUH4xCTFnwk gbl199DqVfDZL8SFWsnCHcJ 3FzvK0q NrSsNUNdWBNkE1EycSShLPo aQ784TIpxRrN1ORLkarBiO8 NqTKDssFxhErJ1n9S2Nk7rD SBZZWFy czwvdGQ+ITCaCEM4uGhtQOh tGAKxcE4xTTVtO3m1DqUcOl O0CDxmM7OzERQyvmayJp48e C9rFqQt YzG4IOuzN2SwtgE6LIBpxCS mQYqyTCA5G52pg2O3HGGgCT PgDPI9oJH1xK7lkQymjqlnp GVmdDsg hkMcwYcgJWqzQVfoT540KMZ vcDsnPkZFTUFMRTwvdGQ+PH XpNWX6xPooZPxkCUWshT5kL KPoC9b8 SsDyFrO0ANadN7DoKOYfsbr sGv19vO0jEcIlYwK4ZTpfD0 IvpjT9WBCrkJZuZXybFJE0S 16ip2Q6 DSElEVXuOPX3mWO4kK8kwEf nbjogbGVmdDsgdmVydGljYW dmSAklB667DIHebMvxFp9IV F84GD00 H7HzSiqroWPapGK+PHRhYmx lIHdpZHRoPScxMDAlJyBzdH wdXT1uVj1pJJCxQPHzjLlrz HNlOiBj x1pmEGHnQXgdTN5tcHikX9T maKG4NGHxs5x0Mp38Y84dF1 JvdXA+AQFufBB6sVR3iO1kB zAlIiB2 EXmmP623FyVeeAXrFuvlx1k ls0qbgSt5KaReMWAbquAfjP rwEHU7s2CmYu96B25cRWykO HRoPSIy SSXaAQSaoWanvm1jtU0nCp1 +WKXjxRG4vNO3iA4hIhAgKz Q1SYsiF367FgHczIOhDdqmY 36yW9Nk dXA+PHMcIll3YXXhxJrmKC9 mmHOpUQrrGe8pEAG5SiOkCp PbCXisD9DdARNyphkoqjkzo BE0LNFi TESdnP08Yo3tiHciBu4kTYG vHWU2VLDptVFjB8LczI2uVk AuUMFtDKPdD3NoxVJkCXsrN 246IGxl PfT0WIOmdbAcW9MuNVYteBl iKvP4g8A0Ml3AsWppbBKcRF 3xDhYuDQr6T1OmObq0LAHsh VqdSY8x zSDwZDdeHs9llMcehMpuQB4 wDPMbxltwj163ZjSau9mwDY RdgYNxSDhrFXP0I97oe7J2A CMwMDAw NWH8bNA7aP4kdBprsculzMK mdDsgdmVydGljYWwtYWxpZ2 44FYXqdTdzNcVDUcr6F1IoM ih7AGRz gIkkIE9swNXgWRcjEx5lbYb utEihAR5qLLZqlvxkp164Yi Jge4ecRTDivIIoAUmmZSK8T 35wi9S8 EFOxMZIqZYI4tEM8nR9gnTw nbjogbGVmdDsgdmVydGljYW aqSGmbN010CYEamSbrYl6GV oz4R8Me Kfh0OKTntRfhPW8jrTCqMBq fNk2lhHxapSjiRO5aWRQokc koy919QfDpj5ecHBUsuLSvF GltZXM7 E40dq1K3RUMlTGOfJGX3zTX 4jD9qmMrruicqhMLjgPspkp JhwVppKLkaTCixY255FXYuh DsnPlBh eWVyOjwvdGQ+RC49vz42D7R gQykxVlt1LSYyGQD5uZF1zT 7pOUGuHBdcs0M5kWM4P5Iba eHkpw9y b2x (more content not included)... [facility] Provider [place] 08-17-2024 Provider Orders [id number]#1.00O TGTIFF [facility] hCG Quantitativeon hCG Quantitative 362.7 mIU/mL High 0.0-0.6 [facility] Comment on above: Result Comment: Post -Menopausal Reference Range is: 0.1-11.6 mIU/mL Performed By: #### [id number] #### [facility] (DEFAULT) [address] [place] [id number] [facility] 08-16-2024 [place] Telephone (REIBD) JAZ SANDERS ([id number]) 1995 F Date Time Provider Department 08/16/24 SHELLY HERNANDEZ During your visit today, we recorded the following information about you: Angella Mccarthy 08/16/2024 12:31 PM Signed Name: Jaz Sanders called today. : 1995 (home) [phone] (cell) Reason for call: pt called that she got positive test, she has been having having cramping since last night , it happens every hours for couple minutes. The patients preferred pharmacy has been captured for this encounter? yes Angella Morillo SeismographerDaniel Li APRN.[facility] 08/16/2024 5:28 PM Signed Called patient back to phone number listed in Epic-no answer. Lm for patient to look out for [employer] message. Daniel Hanna APRN.[facility] August 16, 2024 5:15 PM Allergies As of Date: 08/16/2024 (Not on File) Date Reviewed: 05/09/2024 Reviewed by: Shelly Hernandez APRN.K[employer] HANDYMAN - Fully Assessed Reason for Visit: positive for [Other] Primary Visit Diagnosis: resulting from assisted reproductive technology in first trimester ([facility]) [O09.811] Prescriptions as of 08/16/2024 - [...] Encounter Status:Closed by DANIEL HANNA on 08/16/24 [facility] 08-15-2024 JARR[place] Telephone (REIBD) JAZ SANDERS ([id number]) 1995 F Date Time Provider Department 08/15/24 [...] Date Reviewed: 05/09/2024 Reviewed by: Shelly Hernandez, HORSE DOCTOR.KITCHEN HELP HANDYMAN - Fully Assessed Reason for Visit: Patient [...] Status:Closed by SHELLY HERNANDEZ on 08/15/24 Normal [facility] Provider [place] 08-15-2024 Provider Orders [id number]#1.00O TGTIFF [facility] hCG Quantitativeon hCG Quantitative 160.6 mIU/mL High 0.0-0.6 [facility] Comment on above: Result Comment: Post -Menopausal Reference Range is: 0.1-11.6 mIU/mL Performed By: #### 7 [id number] #### [facility] (DEFAULT) [address] [place] [address] [place] 08-13-2024 JARRODN Telephone (REIBD) JAZ SANDERS ([id number]) 1995 F Date Time Provider Department 08/13/24 SHELLY HERNANDEZ During your visit today, we recorded the following information about you: Marianna Ward RN 08/13/2024 11:19 AM Signed Letters sent. sent to patient Marianna Ward RN August 13, 2024 11:19 AM Allergies As of Date: 08/13/2024 (Not on File) Date Reviewed: 05/09/2024 Reviewed by: Shelly Hernandez, MELY.KITCHEN HELP HANDYMAN - Fully Assessed Reason for Visit: Wants hcg levels sent to [facility] / [place] far away [Other] [...] Status:Closed by MARIANNA WARD on 08/13/24 Normal [facility] Provider [place] 08-13-2024 Provider Orders [id number]#1.00 OTGTIFF [facility] hCG Quantitativeon hCG Quantitative 63.6 mIU/mL High 0.0-0.6 [facility] Comment on above: Result Comment: Post -Menopausal Reference Range is: 0.1-11.6 mIU/mL Performed By: #### 7 [id number] #### [facility] (DEFAULT) [address] [place] [address] CNOVon 07-31-2024 CNOV Office Visit (REIBD) JAZ SANDERS ([id number]) 1995 F Date Time Provider Department 07/31/24 3:00 PM SHELLY HERNANDEZ REIBD During your visit today, we recorded the following information about you: Last Period 07/19/24 Mustapha Tello MA 07/31/2024 3:12 PM Addendum Patient verified by full name and date of . Jaz Sanders is here today for an IUI. LMP: 07/19/2024 Natural cycle IUI Timed With: Ovulation Predictor Kit , Date: 07/30/2024 Photographic Laboratory Technician offered: Patient declines Mustapha Tello MA July 31, 2024 3:12 PM Dominguez Barry 09/05/2024 10:45 PM Signed IUI specimen released to provider Dominguez Barry July 31, 2024 3:24 PM Dominguez Barry 09/05/2024 10:45 PM Signed IUI [facility] Donor # [id number] Pre: frozen washed specimen Post: 82 M/ml, [...] 3. Cycle Day: Last menstrual period: 07/19/2024 Wendel Protocol: UNIVERSAL PROTOCOL / SAFETY CHECKLIST Procedure [...] Encounter Status:Closed by SHELLY HERNANDEZ on 09/05/24 [facility] Office Visit (ANDRBE ) JAZ SANDERS ([id number]) 1995 F Date Time Provider Department 07/31/24 2:30 PM [facility]OLOGY MATERIAL [facility] During your visit today, we recorded the following information about you: Dominguez Barry 07/31/2024 3:26 PM Signed Thaw for IUI. Dominguez Barry Referring Provider: SELF [[id number]] Allergies As of Date: 07/31/2024 (Not on File) Date Reviewed: 05/09/2024 Reviewed by: Shelly Hernandez APRN.KITCH[employer] HELP HANDYMAN - Fully Assessed Primary Visit Diagnosis:Procreative management [...] Encounter Status:Closed by DOMINGUEZ BARRY on [facility]31/24 [facility] ([id number]) 1995 F Date Time Provider Department 07/30/24 SHELLY HERNANDEZ REIBD During your visit today, we recorded the following information about you: Charisse Ding 07/30/2024 3:16 PM Signed N- ivf Pt has questions regarding IUI Shelly Hernandez APRN.CNP 07/30/2024 6:00 PM Signed patient's OPK today was dark but not positive Plan: test again tomorrow. 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, schedule IUI the same day [...] Status:Closed by SHELLY HERNANDEZ on 07/30/24 Normal [facility] CNOVon 07-07-2024 CNOV Office Visit (REIBD) JAZ SANDERS ([id number]) 1995 F Date Time Provider Department 07/07/24 [...] Cycle Day: 14 Last menstrual period: 06/24/2024 [place] Protocol: UNIVERSAL PROTOCOL / SAFETY CHECKLIST Procedure [...] Gonzalez 07/19/2024 7:50 AM Signed IUI [facility] #[id number] Washed frozen specimen Post: 31 m/ml, 77% Insem#: 10.8 million Referring Provider: DANIEL HANNA [[id number]] Allergies As of Date: 07/07/2024 (Not on File) Date Reviewed: 05/09/2024 Reviewed by: Shelly Hernandez APRN.KITCHEN HELP HANDYMAN - Fully Assessed Primary Visit Diagnosis:Encounter for [...] Encounter Status:Closed by MIKEY HENLEY on 07/19/24 [facility] CNOV Office Visit (ANDRBE ) JAZ SANDERS ([id number]) 1995 F Date Time Provider Department 07/07/24 9:30 AM [facility]OLOGY MATERIAL [facility] During your visit today, we recorded the following information about you: Nichelle Gonzalez 07/07/2024 9:41 AM Signed Thaw for IUI Nichelle Gonzalez Referring Provider: DANIEL HANNA [[id number]] Allergies As of Date: 07/07/2024 (Not on File) Date Reviewed: 05/09/2024 Reviewed by: Shelly Hernandez APRN.KITCHEN HELP HANDYMAN - Fully Assessed Primary Visit Diagnosis:Procreative management [...] by NICHELLE GONZALEZ on 07/07/24 [facility] [place] 07-06-2024 [facility]AND[facility] ([id number]) 1995 F Date Time Provider Department 07/06/24 [...] Date Reviewed: 05/09/2024 Reviewed by: Shelly Hernandez, MELY.KITCHEN HELP HANDYMAN - Fully Assessed Reason for Visit: Patient [...] by BECKI ISAACS on 07/06/24 [facility] [place] 07-05-2024 JARRODN Telephone (REIBD) JAZ SANDERS ([id number]) 1995 F Date Time Provider Department 07/05/24 [...] Date Reviewed: 05/09/2024 Reviewed by: Shelly Hernandez APRN.KITCHEN HELP HANDYMAN - Fully Assessed Reason for Visit: re [...] Encounter Status:Closed by MARIANNA WARD on 07/06/24 [facility] 07-04-2024 JARRODN Telephone (REIBD) JAZ SANDERS ([id number]) 1995 F Date Time Provider Department 07/04/24 SHELLY HERNANDEZ REIBD During your visit today, we recorded the following information about you: Shelly Hernandez, MELY.[facility] 07/04/2024 7:30 PM Signed Spoke with [...] need to be removed. She will need [place] emergency department guidance for her next IUI. [...] Status:Closed by SHELLY HERNANDEZ on 07/04/24 Normal [facility] 07-04-2024 Indication infertility testing Impression [...] Read By: Ignacio Guy M.D. MATERNAL MEDICINE [facility] [facility] Telephone (REIBD) JAZ SANDERS ([id number]) 1995 F Date Time Provider Department 06/29/24 SHELLY HERNANDEZ During your visit today, we recorded the following information about you: Kassidy Meyer 06/29/2024 8:53 AM Signed Pt had iui 06/09, pt isnt . Please follow up Cd1 06/23 . Pt had hematoma after iui Juice Saulo Patricia 07/02/2024 9:18 AM Signed Pt wants to [...] Encounter Status:Closed by MARIANNA WARD on 08/13/24 [facility] CNOVon 06-09-2024 CNOV Office Visit (REIBD) JAZ SANDERS ([id number]) 1995 F Date Time Provider Department 06/09/24 11:00 AM RENNYHARISHIGNACIO TRACEY During your visit today, we recorded the following information about you: Nichelle Gonzalez 06/09/2024 12:30 PM Signed IUI specimen released to provider Nichelle Gonzalez June 09, 2024 11:24 AM Nichelle Gonzalez 06/09/2024 12:30 PM Signed IUI Cryobio #: [id number] Washed frozen sample Post: 42 m/ml, 74% [...] Cycle Day: 13 Last menstrual period: 05/28/2024 Wendel Protocol: UNIVERSAL PROTOCOL / SAFETY CHECKLIST Procedure [...] was discussed with the patient or authorized community representative. The patient or authorized community representative has agreed to proceed with the sensitive examination. (Sensitive examination includes inspection and/or palpation of the breasts, pelvis, prostate and anorectal regions) Patient declined coat tailor. Vidhi Sheldon MD IUI IUI Date: 06/09/24 [...] stopped. Will get pelivc scan here at [facility] if not with this IUI prior pt proceeding with another attmept at IUI. Ignacio Guy MD June 09, 2024 12:30 PM SIGNATURE: Vidhi Sheldon MD PATIENT NAME: Jaz Sanders DATE: June 09, 2024 TIME: 12:01 PM Referring Provider: DANIEL HANNA [[id number]] Allergies As of Date: 06/09/2024 (Not on File) Date Reviewed: 05/09/2024 Reviewed by: Shelly Hernandez APRN.KITCHEN HELP HANDYMAN - Fully Assessed Primary Visit Diagnosis:Female infertility [...] Encounter Status:Closed by IGNACIO GUY on 06/09/24 [facility] CN Office Visit (ANDRBE ) JAZ SANDERS ([id number]) 1995 F Date Time Provider Department 06/09/24 10:30 AM ANDROLOGY [facility]ERIAL [facility] During your visit today, we recorded the following information about you: Nichelle Gonzalez 06/09/2024 11:48 AM Signed Thaw for IUI Nichelle Gonzalez Referring Provider: DANIEL HANNA [[id number]] Allergies As of Date: 06/09/2024 (Not on File) Date Reviewed: 05/09/2024 Reviewed by: Shelly Hernandez APRN.KITCHEN HELP HANDYMAN - Fully Assessed Primary Visit Diagnosis:Procreative management [...] by NICHELLE GONZALEZ on 06/09/24 [facility] Coding Summaryon 05-24-2024 Coding Summary HTMLBase 64 AbbhhthvCKa4jNq+PGhlYWQ +HD3MKHVmG80ynJIaxW2qV2 NMTElOSywgQVBQTElOSyIgb vJyBW7xbGCfJXYf IC8+JH7bPSBtRlfumPEll6V 3gEV8A91dat5bPLgfzEI9UV SwKbVjyuthq0yzcIn9OViyI mluOyBt LVJofA12XLA4aF55Iu34qKH hhIVpt8yvbKn7TdRnWEPkGI P7jWcoBZgpz4TfAELuB89lc UUvm7B8 BCXdrTfxlWQeNpTrqUO5yJ1 tHDepvwaod2byxehbYpw7bm 59eYNyd1B1iXY0O5LxkoK6C GJvbGQg FjixrCKHkY0poqspx6cwijx aCuRdRWVvDLk2VHc9KVYpoO cfSqXeBZ13PVQ1UHBaqsSpE 2FsLWFs zQakZiY5o4K8Ha3RP6XFNpq nB7JMYHFHDXfmiEV+PC90cj 84M4GbVuzrWxa5KBEbRXP2c WX9iU3q NHKbLPcka3Y3kCP0I0IoqqC iyk2mt4qkZHQwVDfbW98piT Oyy0J2BAJkiFF5WLYhzKoyZ iBzaG93 Oyc+IQFulEyet9CwXduon2x kn9jcePm3OyiwTPQeokSiiV idMQC8v6GoAv5zMWRhsHO7j LG7kB2x GeGaZbD0GJpmR469RrEyiMG qMwonO56yD6CubII+PHRyPj d2XEIraQlxTA1aF0CxRWXuf mctbGVm dJibEQ5bNDPkfidmAYFkvH0 rEWPsH0g8QgAnBpP6BZmyX4 SrRYNwtsnoEp91bV9gMvKuK pL9LEtk C0LjriG6TLXutHKbFHxmKUG 9R13lf8J1XZYkSSPkIQN3bM V5dJ4xyXvbditvmQUgrHbjk mVydGlj ILeiSSsnW473YUHphVckTnY vZGluZyBEYXRlOiAgMDIvMD YvMjAyNTwvdGQ+DWZmQDG8z WxlPSAn qRXdYZqjEk7mmAkdoSbbBX4 eNIXotnpxBKFqhS3nEWBahF CeyObeUA7mKNIzoyvdh013E iAxMHB0 OBOnfQNqW5WnpA2sRsFdQLK qYOOkY0QspZPoPWsqP077XR yzXtK9XBCxesLvS6QyXSKsh WduOiB0 l0T6Sp7Zh3KjftktQ7CfkZM hIjSaExexOKq0S7GsSuccgJ I+YW92WSHeJQ85MQe8HZR7y WxlPSdi CTZsW1BmuQ3gKmCcJUUuUCM kOyc+PHRhYmxlIHdpZHRoPS llDAZlGkQyrPkfBH4pBe8xO GVyLWNv yIrlgSRuCzPth4xxQYCmCDt vTI8ztDjsG5TvsLZ5HGJab7 m8Zi47Q10pI5XmrWX+PGNvb EJ8yZE3 pI6rWeByUjQ9ZEnpW690FmX utCMlPuqrt8ojg5jwfDd8Bx Y3WPFpeqNizTzgCAI8u2SqO x69R57w IHdpZHRoPSIxNSUiIHZhbGl hym2gdG0qPc4+MWOxbXD2iJ Z5uZ0zVmFtYjQ6FVxoQ509S nRvcCIv Ualqi4wfi4kfmOa4TqHaPMX xpqNklUwcJDN9x6EbAe98C4 HgcLfdg4IkHoj6ev92bACei 9J5yLV6 R9RrTXMgvdeapJYfzSziXB8 fMQAutrpwZZSnoK1qSYBhX4 r8MwYfDoZ7RMrgP2VvuyY4S GJvbGQg LLLjdSFBtQ5aiscwt8cbudh oRjBqUTYgJPs9KCs3ILLalN woEbVpEJO7LeO7BMG3mAAvm K3ozTvr hrdpeJ4gJak+VFY0pEKrgYV FQO8vMitreZK+QQJmZZS6yK vuFNnoPIMcgH7hYIBpT5t4O iAwLjA1 BQbaY7SpfsF5VLCabIVcSDU oyGEPmC5lqcqsp7medanyBf UsYQNsWWf5VBs5NCGsxYuxZ iBsZWZ0 YwJ6VZG9uZXfgG4znQgofuo jaT4lPan+BqsqdArmAKC4VD y5K0LrNbd8NAOliSrmHM4ij GFkZGlu Po1xkDiyxCciPN7jWWQlxjk gh400VmLrp2qaGOHcaMQsFJ iqSZG9E64un8Y1VOHuDUDbG RF4iVK0 gE6keAgfrrtkuZOneNzkkaE ghPhrZMjbJTzzK565COVjwR lkExVxZBz0H8OpQsz0CDTcm XjbIV5y jMCoWFjqUo8egBqefYfgQR3 uHOTwixjtg469LlNll8hjDN RooZAnIYirBHJ9J18pc3W9N CMwMDAw PAJ9zEE0cR3vfGdxdeverCT mdDsgdmVydGljYWwtYWxpZ2 93IRRqiXzsWuBmfDd6W1QpN ze8HRNh zFzqWC3woGHhXNqqGy8gmEs joZslKO0wWFKynbgxs121Eg Fqd7npYHZrhEXqKRncZYT3E 94hi0E6 VGUvKAMyIYY4qLH3kE8ozUx nbjogbGVmdDsgdmVydGljYW zmILszS041ZVKaiInnVwEvq GllbnQg NTqsBKy5H3EyFnsneIF+PC9 7CNUsQV96cAApkZUgv9qzdF z4UrPjQSCbPVD2oKzoNDabs 3JkZXIt I08yrSNuz6D5RBWqeLopvOZ cMsFhcIE9qY1nPRdcxrdbh6 jxcclcDezbv3rnvn18xA12J 29sIHdp ZHRoPSIzMCUiIHZhbGlnbj0 hcO4dKi0+VBNpiDP7qXV2xD 0aPXFjUvE9TIzcT403YiTua CIvPjxj n4bgp3eiiRm1FyU4YNUhcvB sxJqeZOQ1a8XtTk34G46dNN dpZHRoPSIyMCUiIHZhbGlnb c1gwJ2g Ii8+IUTzkOH7qAS2jH4hFrD gCuL0NLkeL144OmNxhDXtCa nuR12yJ1YieWT+UZUnSgs1Y CBzdHls HJ0alBRsFXbyWy3vIRX7OlT nTcOgHMtvJ8BbQIWlxmiear tjuAT0IQRrLREhqB44Pp0jq DogMTBw cCUNbG1pxcjiy0mwlctvUwS rWBDjVNd7JDu6QNXdoAdvUl PxTYT8SlR8HJW2vYTipO2qu Glnbjog yT1kR5KnKKXxkfunZe71zM5 eRyLwIbP4FSrfDnd+TUNDQU 5OLCBIRUFUSEVSIEVMSVpBQ kVUSDwv dGQ+RPMnHWL8iRntWQqjENA dfN5rJLMxT9p1JaHgSyP4EH jbK3GoQJRdmatqLk06nO7xO iAwLjA1 BAvnX3SthoN9JXFmfPPxIRo pOGY7U77gf1S5DHYkRTTpGT V9nAA9tD7qyPhmdlpnyXMjg DsgdmVy oCahGNzgGDeaF772OPClnRk hUyBiQyB8MmF8AUO7A2AgPu w3GFWybVwbHT8olDKyQRbiW z4qyPnx lPbcDH7aAMDchhueOIIrnW0 lMAJpkPGeuAgsUW7iYFOvov xce928EbTyWOA3YCHqrPSqU 1ZztA9d FhSgEGPwPGFrB5QndKUgHEk jV969HAmaMcE9MDQayuDgI4 VhSLGjbVbjMxW6j7R0In0mV SBZZWFy czwvdGQ+VSFmNZS7uSwsTEc wSAHdiV8rBTEhD3w3MlNkOk L7UWfwG2NdKOSscfsaGd15g I7dEdBs JaH7KOauH2TmtiA7GSGdbHE zUDskLOC9L09bp3K9JJTrHV ScPKZ5vHO8vF4bvCodnkzuh GVmdDsg cgAydVptDVogERejK518ZVV vcDsnPkZFTUFMRTwvdGQ+PH IcVNX8gFlvFJaxYJFpgD4zF NVyC0d8 AhXbXtW4UHmkA2UkIRTncci jQo28dY0wJlVoYmA1DTleL5 FozkX0MWTfqCOpZIoxIDZ6Y 95zk4U0 BDAgIABeXKM4rXU9xN4fiBf nbjogbGVmdDsgdmVydGljYW spXKjeF292ODNcmIeyFo4SC K29EW88 U2EoRxuyxVUatFM+PHRhYmx lIHdpZHRoPScxMDAlJyBzdH uoHF4tRe8kVCIkSJIghZnrj HNlOiBj h8mnMKYnNCnbRC7czYwlZ4O lgRG8CKRuy7a3Th84Z51tM7 JvdXA+PJHssCC6pAD0gC1jB zAlIiB2 MYsaI790QlAxsKZpJtzwy7d pm5gkcJq2KkXeBWAfbaCzkT eyHIL0i4BmWf68E62bDAidZ HRoPSIy ZMUbCFNgzOqyvd7fdR9yEy0 +MJVmkYS7mLL0fN6pVxXaPt O9YSlgV361RcMrxRCzBnjtR 29bA1Re dXA+ZEWwJpc1KDQgwJbzIJ6 waIEdHNnnZt9yOEL5YdEoBf LgRGhiH2XeFOHqfxzhcpnir XY3PMFq TCUotL10Fk1otEmxQb2iYHF jLFT2HQNsoMSyB1GiuV9bLm DgNRKeNFAiZ0AteNZgKEplT 246IGxl IyB6WFGccjPbU1AkNHIzpPe iSrX5c4T7Lb4VeYntmMTgLJ 2lYnJuTCw4Q4FxSig8SIByk RllIK1o xXCoKLrjIp2agSfstMlwSO2 qUEBibqltg757SvMkj1yuPV VqlODcCWzlHJW9X64ki4K0L CMwMDAw CAM7vRY5mD6keTjsbhjwnRE mdDsgdmVydGljYWwtYWxpZ2 66ODRutXyjGmDGMzz7J6SfW kj5HDWj pRlfAR6mcGYxXYowXv4ogFt ezCrhLZ5xNWWbednto525Br Jyf7yaWTPtyGXaDMqwVIY7N 59ud6W4 MYVtITWkGXD3mCX0kP8zvIc nbjogbGVmdDsgdmVydGljYW goUYasM027NRWdbVkvDx5OQ ec0L6Ll Wqf2NBAgbArsEI2tiHRlOIw lIo7dxCjyvLsuOP4xUPSnug eag599GmCnz9ppRSWntEQwJ GltZXM7 G07nk7R2IRCvLMUgGYX1gJL 1rC8fhObengrloPOrmJgjbt FmwRvaWCktQFbwN145VHHjj DsnPlBh eWVyOjwvdGQ+NZ60hl86P2A sYqflYbn6SGTlDAK7jIH7iQ 5vHJXnEZehq5O3aHX5G9Jcz wXtzp3d b2x (more content not included)... [facility] Progesterone LCon 05-22-2024 Progesterone LC 7.6 ng/mL Invalid Interpretation Code [facility] Comment on above: Result Comment: Foll icular phase 0.1 - 0.9 Luteal phase 1.8 - 23.9 Ovulation phase 0.1 - 12.0 First trimester 11.0 - 44.3 Second trimester 25.4 - 83.3 Third trimester 58.7 - 214.0 Postmenopausal 0.0 - 0.1 Performed At: [address] [id number] J Luis Gray PhD Ph:[phone] Performed By: #### 3 [id number] ####[facility] (DEFAULT)[address] [place] [address] Provider Orderson 05-21-2024 Provider Orders [id number]#1.00 [facility]20 Physical Therapy Note [id number]#1.00[facility] 25-hydroxyvitamin D3 [Mass/Vol] 28.8 ng/mL Low 31.0-80.0 [facility] Comment on above: Order Comment: Speci men Type: BLOOD SPECIMEN Ordering Facility: [facility] Address: [address] [place] [address] Result Comment: Clas sification of 25 [place] Vitamin D status: Deficiency/Insufficiency: < or = 30 ng/ml. Sufficiency/Optimal Levels: 31-80 ng/mL Toxicity: > 100 ng/mL. Test performed by chemiluminescent immunoassay. Performed By: #### 5 5454-3 #### [facility] CLIA [id number] [address] [place] [address] [place] C. trachomatis+N. gonorrhoea e DNA AC+probe Ql (Unsp spec)on 04-02-2024 C. trachomatis rRNA AC+probe Ql (Unsp spec) Not detected Normal Not detected [facility] Comment on above: Order Comment: Speci men Type: BLOOD SPECIMEN Ordering Facility: [facility] Address: [address] [place] [address] Performed By: #### 5 5454-3 #### [facility] CLIA [id number] [address] [place] [address] [place] N. gonorrhoeae rRNA AC+probe Ql (Unsp spec) Not detected Normal Not detected [facility] Comment on above: Order Comment: Speci men Type: BLOOD SPECIMEN Ordering Facility: [facility] Address: [address] [place] [address] Performed By: #### 5 5454-3 #### [facility] CLIA [id number] [address] [place] [address] [place] CARRIER SCREEN, EXPANDEDon 1 06-03-2023 CARRIER SCREEN RESULTS View results in S canned Documents link when available. Normal [facility] Comment on above: Order Comment: Speci men Type: BLOOD SPECIMEN Ordering Facility: [facility] Address: [address] [place] [address] Performed By: #### 5 5454-3 #### [facility] CLIA [id number] [address] [place] [address] [place] CMV IgG Qnon 04-02-2024 CMV IGG QUAL Negative Normal Negative [facility] Comment on above: Order Comment: Speccarlos negrete Type: BLOOD SPECIMEN Ordering Facility: [facility] Address: [address] [place] [address] Result Comment: No s erological evidence of past exposure to Cytomegalovirus. Cannot exclude recent infection if the specimen collected within 4-6 weeks after infection. Performed By: #### 1 989-3, RUBRAEANNG, 7852-7, 7853-5, VZVG2 #### [facility] CLIA [id number] [address] [place] [address] [place] CMV IgG SerPl-aCncon 024 CMV IgG Qn <0.20 Normal [facility] Comment on above: Order Comment: [facility] Type: BLOOD SPECIMEN Ordering Facility: [facility] Address: [address] [place] [address] Result Comment: The magnitude of the measured result is not indicative of the amount of antibody present. U/mL values are interpreted as follows: Negative <0.6 Equivocal 0.6 to <0.70 Positive >=0.70 Performed By: #### 1 989-3, RUBOTIS, 7852-7, 7853-5, VZVG2 #### [facility] CLIA [id number] [address] [place] [address] [place] CMV IgM Qnon 04-02-2024 CMV IGM, QUAL Negative Normal Negative [facility] Comment on above: Order Comment: [facility] Type: BLOOD SPECIMEN Ordering Facility: [facility] Address: [address] [place] [address] Result Comment: No s erological evidence of recent exposure to Cytomegalovirus. Performed By: #### 1 989-3, RUBIGG, 7852-7, 7853-5, VZVG2 #### [facility] CLIA [id number] [address] [place] [address] [place] HBV core Ab Ser Qlon 024 HBV core Ab Ql (S) Negative Normal Negative [facility] Comment on above: Order Comment: Speci men Type: BLOOD SPECIMEN Ordering Facility: [facility] Address: [address] [place] [address] Result Comment: No e vidence of current or past infection with Hepatitis B virus. Should recent infection be suspected, repeat testing may be considered 3-4 weeks after this draw. Performed By: #### 1 6933-4, 5195-3, 28010-1, 30793-2 #### [facility] CLIA [id number] [address] [place] [address] [place] HBV surface Ag Ser Qlon 03-18 HBV surface Ag Ql (S) Negative Normal Negative [facility] Comment on above: Order Comment: Speci men Type: BLOOD SPECIMEN Ordering Facility: [facility] Address: [address] [place] [address] Performed By: #### 1 6933-4, 5195-3, 01634-4, 21206-2 #### [facility] CLIA [id number] [address] [place] [address] [place] HCV Ab Ser Qlon 04-02-2024 HCV Ab Ql (S) Negative Normal Negative [facility] Comment on above: Order Comment: Speci men Type: BLOOD SPECIMEN Ordering Facility: [facility] Address: [address] [place] [address] Result Comment: The result suggests no evidence of active infection with Hepatitis C virus. Should recent infection be suspected, repeat testing may be considered 4-6 weeks after this draw. Performed By: #### 1 6128-1 #### [facility] CLIA [id number] [address] [place] [address] [place] HIV 1+2 Ab IA Qlon 4 HIV 1 and 2 Ab IA.rapid Nom (S/P/Bld) Normal [facility] Comment on above: Order Comment: Speci men Type: BLOOD SPECIMEN Ordering Facility: [facility] Address: [address] [place] [address] Result Comment: Test not indicated. Performed By: #### 1 6933-4, 5195-3, 70270-7, 79674-8 #### [facility] CLIA [id number] [address] [place] [address] [place] HIV 1+2 Ab+HIV1 p24 Ag IA Ql Non-Reactive Normal Nonreactive [facility] Comment on above: Order Comment: Speci men Type: BLOOD SPECIMEN Ordering Facility: [facility] Address: [address] [place] [address] Performed By: #### 1 6933-4, 5195-3, 37209-2, 85747-7 #### [facility] CLIA [id number] [address] [place] [address] [place] HIV immunoassay testing algorithm interpretation (S/P/Bld) [Interp] [facility] Comment on above: Order Comment: Speci men Type: BLOOD SPECIMEN Ordering Facility: [facility] Address: [address] [place] [address] Result Comment: No e vidence of HIV-1 or HIV-2 infection. Should recent infection be suspected, repeat testing may be considered 2-3 weeks after this draw. [place] Rev. Code 3701.243(E): This information has [...] diagnoses. Performed By: #### 1 6933-4, 5195-3, 83159-9, 66115-1 #### [facility] CLIA [id number] [address] [place] [address] [place] HbA1c (Bld)on 04-02-2024 Average glucose Estimated from glycated hemoglobin (Bld) [Mass/Vol] 85 mg/dL [facility] Comment on above: Order Comment: Linden penelope Type: BLOOD SPECIMEN Ordering Facility: [facility] Address: [address] [place] [address] Result Comment: eAG: (Estimated average glucose) is a calculated value from HgbA1c and is community representative of the average blood glucose level in the last 2-3 month period. Performed By: #### 5 5454-3 #### [facility] CLIA [id number] [address] [place] [address] [place] HbA1c (Bld) [Mass fraction] 4.6 % Normal 4.3-5.6 [facility] Comment on above: Order Comment: Sumeetcarlos negrete Type: BLOOD SPECIMEN Ordering Facility: [facility] Address: [address] [place] [address] Result Comment: [place] Diabetes Association guidelines indicate that patients with HgbA1c in the range 5.7-6.4% are at increased risk for development of diabetes, and intervention by lifestyle modification may be beneficial. HgbA1c greater or equal to 6.5% is considered diagnostic of diabetes. Performed By: #### 5 5454-3 #### [facility] CLIA [id number] [address] [place] [address] [place] RUBELLA IGG ANTIBODYon 04-02 RUBELLA IGG AB, QUAL Positive Normal Positive [facility] Comment on above: Order Comment: [facility] Type: BLOOD SPECIMEN Ordering Facility: [facility] Address: [address] [place] [address] Result Comment: The result suggests recent or past exposure to Rubella virus or history of Rubella vaccination. Positive result may also be seen due to presence of passively-transferred antibodies. Please correlate with patient's history. Performed By: #### 1 989-3, RUBIGG, 7852-7, 7853-5, VZVG2 #### [facility] CLIA [id number] [address] [place] [address] [place] Reagin and Treponema pallidu m IgG and IgM [Interp]on 04-02-2024 T. pallidum IgG+IgM IA Ql (S) Non-Reactive Normal Nonreactive [facility] Comment on above: Order Comment: Speci men Type: BLOOD SPECIMEN Ordering Facility: [facility] Address: [address] [place] [address] Performed By: #### 1 6933-4, 5195-3, 79474-7, 28988-3 #### [facility] CLIA [id number] [address] [place] [address] [place] Reagin+T pallidum IgG+IgM Se rPl-Impon 04-02-2024 Reagin and Treponema pallidum IgG and IgM [Interp] Cannot exclude recent Treponemal infection if specimen collected within 7-10 days after appearance of suspect lesions or 2-3 weeks after an exposure. Clinical correlation is required. Normal [facility] Comment on above: Order Comment: Speci men Type: BLOOD SPECIMEN Ordering Facility: [facility] Address: [address] [place] [address] Performed By: #### 1 6933-4, 5195-3, 31589-9, 80924-4 #### [facility] CLIA [id number] [address] [place] [address] [place] TYPE + SCREEN PRENATALon ABO A Normal [facility] Comment on above: Order Comment: Speci men Type: BLOOD SPECIMEN Ordering Facility: [facility] Address: [address] [place] [address] Performed By: #### T SPN #### [facility] CLIA [id number] [address] [place] [address] [place] Rh Nom (Bld) Positive Normal [facility] Comment on above: Order Comment: Speci men Type: BLOOD SPECIMEN Ordering Facility: [facility] Address: [address] [place] [address] Performed By: #### T SPN #### [facility] CLIA [id number] [address] [place] [address] [place] TYPE AND SCREEN EXPIRATION 04/05/2024 23:59 [facility] Comment on above: Order Comment: Speci men Type: BLOOD SPECIMEN Ordering Facility: [facility] Address: [address] [place] [address] Performed By: #### T SPN #### [facility] CLIA [id number] [address] [place], [place] [id number] [place] [address] [place] VARICELLA ZOSTER IGGon 04-02 VARICELLA ZOSTER IGG, QUAL Positive Normal Positive [facility] Comment on above: Order Comment: Speccarlos penelope Type: BLOOD SPECIMEN Ordering Facility: [facility] Address: [address] [place] [address] Result Comment: The result suggests recent or past exposure to Varicella-Zoster virus or chickenpox vaccination or zoster vaccination. Positive result may also be seen due to presence of passively-transferred antibodies. Please correlate with patient's history. Performed By: #### 5 5454-3 #### [facility] CLIA [id number] [address] [place] [address] [place] Coding Summaryon 03-20-2024 Coding Summary HTMLBase 64 XwvlxepdAYb4dKi+PGhlYWQ +FM7KSTMoH31jdWEwpU5wB6 NMTElOSywgQVBQTElOSyIgb kNyVU7mlRJvNXVu IC8+AZ9dILNtFllwjZFog8H 6xVL7J44jwa4qUEvemNE7NX GnZpSpmwsge6hsnIu3YRadG mluOyBt DQSzwB59PZL4jD24Tc70pWG eaZCeb7jmbIf1XnDrTWYmEI F2lMjyEVero0WcVVKwD33vj UYpc5P1 PWWqwQmjeRYsJjZscQK5bG2 tQXxwtgtdb1xmljcdHnd9fv 83rOGbn7N9tZI2Z4KnblR4Z GJvbGQg GezxeRNDcZ3ynrndn3cupmm nTmRgMOVxKPc8IOw6LWOpwE pcPoRwJV77UKJ8JWAqudZgH 2FsLWFs vEzyUcM7m4I8Ut5FF3ZYQqd iL9DIKVAKVZbcaME+PC90cj 24F9HqGxjdRza5PEFmJBB2f OQ2xQ8x PTSvVVlgu0W7nUF6G6ApggS nak8ce5onUVPvQJqjX61yyJ Msk2Q7SODtxXN5AMKsrPnqF iBzaG93 Oyc+TSLqnBqid6SaSolim3d kj1rpoKq6LwevGEKciuDphB zzNWO9w5NbJe2vLQWokRE5g AM0rN5v CwUoUfI2DQwoZ157RaUipIH gWmrbR53dI5UxrIE+PHRyPj c4TUWliKejUJ6mO9IrQBRrt mctbGVm bFscRF1kADHaqejaDUBykJ6 xCCUzC6n6TjEdZpV0BTahK2 BxIDRfzrnhOz33eG6qFcQnN qN3SFtw Q1VkdnZ4FGOimYNmUVqiWDD 9T14hc9W0RGLhWZImIQJ1rX C2jV0ukFqobxnvrNLhiJcph mVydGlj GEveALudW574CQIvjDlqYxF vZGluZyBEYXRlOiAgMTIvMD MvMjAyNDwvdGQ+FXRoWWH3x WxlPSAn jPFuSLpnMs4xwKgabRblUZ3 pDMBjmexrXVKuaE0mMYXqoX VfqFcbMM2zVZHhwwphw166Q iAxMHB0 LNIlfWNpF8MpfW9uCcJjTEW zPHReZ7YmbLIdWHttF697AJ jcTzP6SDKvdmObZ8EtKWFns WduOiB0 m8B2Yb0Cv5KyjcmvK8XeoDA nAkFaPvoiQZj5R0GgExahoI I+AO63IWCyXJ48IWx0RKM6y WxlPSdi TXVzQ4XxnT3qSxWqABRoYJM kOyc+PHRhYmxlIHdpZHRoPS ciXGLbJwGjfHwjOJ6mUn6mD GVyLWNv wRmgrUHsXjEww5diEOSlOYs iPM7ejGrnE9IxvNJ3CUQfp9 s8Gs22V66tN7MrpJD+PGNvb XZ0dPX6 vK6dVxKdKkN5HNfcK345VvW faICmCvvay5lae4aexAf2Ii V6IMQiafQirOhaBTA7l5DhR h98C84l IHdpZHRoPSIxNSUiIHZhbGl lrk1zdZ1gXs2+ZEZgiTL2bW G5tF8vInHaIbR2TJurL482C nRvcCIv Vhlhr8okd9emnAh5IsTaSZO aofEniMzzHKC0e4RhMp32U0 BdnUbwz7ViOxb5vd96rHIdd 2D9oVD4 M7PzSCKktpmiuFXcmYzuHP7 qVRXddcbzFZKjwH6tAAPhE9 z5CyPsUrL9BHgfO8NewuT6F GJvbGQg LKMipGUChR2nhzoac0lwshs bGqErRJOnPNu6EKt8LJWyhR pcEiWlCMM0McF4SDG4oGDae Y6hdUqv mbsdqL0iOak+NXO7rRAuePU WSY6kGrixpXI+XMJcNIR3yT apUCqoYJOjxJ1nAEJxH8d3H iAwLjA1 JMcvD2NqagQ9TOHigJDaHUB wnYDEwZ8ntluip3wlcipaGl BpYWJiRWc8GZh5LNGvrMjvH iBsZWZ0 XzE7UES2dIJbxN6scMnvpxh fvG0tShd+TnnsiRqbGZD4JS v7X5YjRsh6CLShtGvaXN4cb GFkZGlu Le3guQqltGkgCG4qXZXpcut vq871JzIlr7aiKZVaaAIwLW phOYS6C46yg6T2CKStFODtY OU1pRK8 fY2kxEbicgcljDTjcTxmzjB obUqmCInaHLbcC859PSKocP tlPlGwLWp9W1UcQhs0GNHfk MdvPH0j ySTvOPciCm1pvRdpkNjrHP6 xQIBwqshmo282KeUml9bfTQ GekOZvIEbsGWU8I15ja8H5K CMwMDAw SUI8vPO3yV2mfGlybpkwcGF mdDsgdmVydGljYWwtYWxpZ2 13BIXoeLtcQkJnsWi9T3LtY kt4EQJv bZpnMZ5fhOJvJKngXb7qcVp coNqdNV8dGSOjikvgn356Qm Gnb3xgWFKqcNKfMTgqDEM2F 07nr3V5 IKZdZATaWVR9mAG0uQ5lwLp nbjogbGVmdDsgdmVydGljYW ytCOsrF281QOOslRyiIqKaj GllbnQg SSimRZn0V6KlAobzgWZ+PC9 7QZZcAM63yVIadUDjg8forC o3HuToAEYeIIZ8dSuiIShak 3JkZXIt K11wjTWzv0H2VXCzvZjsnTF rVpPrjGS3fN9uJRyigdgdd0 habdaxMczyb7ibwv06iI84S 29sIHdp ZHRoPSIzMCUiIHZhbGlnbj0 glB3aBc7+GKZxwTJ9jYP7hM 6mAAJwLdT9XLkhH410RwUtc CIvPjxj q0srn5aloOw9KkP3CBXufdJ wzSzsMZL8r2HrUs71E88fCS dpZHRoPSIyMCUiIHZhbGlnb q2sqB2b Ii8+XVYdbTY3iFM9lR1bOwD aXdB5KHwhT848UqShjRYkGr qlJ90iX4IqxZQ+UUJkLzs4B CBzdHls KF3mdZBeDPxxLu4jDUE0WdH gIaWwICqiE0YmYSUmisltsd ddvXH8SYNwQQJtiY23Dr8ve DogMTBw vCZVkV7ayncoy6ggrjunWzH nTPDqLUh8KBj9IGElzQgxHu UiWTN2ZuW4JGS4rYGamP0xy Glnbjog fK9jK9QePTNyapivJy12zK7 jQzNxRnW6MGqhBrz+TUNDQU 5OLCBIRUFUSEVSIEVMSVpBQ kVUSDwv dGQ+SQSnPSP9yRqaGDsbYZY klP6dYCCxA0t3EhTiEsT5JC piD9IpJNVqmdvlXv66uJ0jH iAwLjA1 EZimZ6DdbbB2JLVsjAOdLPg cTFE4G51mx2A2OQOhWVYnZJ L0oBY9sS2yiKqmcsmmzJNno DsgdmVy qVvgTZxqCDpvU711YHEemFp xKyLuSxG7OwL7QHV5K7TkJg z0OFXxoFnpKB1hvKVaTRsrX x7fwUhf bSvfDD0yKEOdbkkxIYLhuK5 vYCEtkETnuWwbBC8vYZAhxv xtm680NwGoWPL3KGJxmIQtU 0YbpD2a NyElIRGcECRnO2RjrDSdMHf rJ887EZkbKsL7AHAyzgYsD8 LcRSNkvWgmTtS7d4N6Rx2cF SBZZWFy czwvdGQ+FTDeJAT2aZlvQLt vPFPsuJ7mISKiF8x9TlOiCn J0XCbxW2UjMXEqruynIu85r Y5rDgSv FrW5NXybZ8DqgpK5URMkmCU xRKwlAFN3P80qi0X8ERMuWM DuVDM3oJA9uM5cnFmawduhg GVmdDsg drPikDfiRZqtTLviP177JQF vcDsnPkZFTUFMRTwvdGQ+PH IaDTU9rVimQCsyRJQxuJ7aR RYtC3l8 CtXrAqK5CJrqD8PzRSMdkkk lMu25bC3dBhTfVuH9GTurC6 ExgxO1UDCpeMOsHXmlHWJ1J 03gl5O6 VESeOAEhRGO2vIY9oA2tpPk nbjogbGVmdDsgdmVydGljYW fcBHnvT888ULBmfTiwUnErN 3Vycmlu LvDUrHMeRXNyGF08NJ52KG7 2M5NlViowgLLktCZ+PHRhYm xlIHdpZHRoPScxMDAlJyBzd ZclNI0f Ic6xONHmWVAlgEikuTDfOnR og4vsGVLlCSaeBX9iuDclH9 YshFT2JDPlg7q5Qw65W75xH 3JvdXA+ AEDpfMP2fTZ6gU1iLiUoIqC 0LHrxA735QxJjmOYkIrvyo3 uvd6hryUq8VcLdVUQbsnZns WduPSJ0 o6AfVa80F57dYScbUGZqTZX yADBmWXVtyXkokx5ovE9jLp 8+RCTixMI9bNX6kZ6eUbPvM vL0JUvu S206DhRwiGVxSldoL15yF7Y vdXA+YBDaYmx8GYNitQivWU 3kwZKzQGpdUn1mBME9NdMeT jIwMGlu B2TcCGCliugktkwgaYR4GQB hEIJenB66Nz8kwEroGc6zGM DgTJP2WYApnNOyZ2BtaY4uR iAjMDAw OYTpZ9VfnJItPAuxD955SKk wOvM1XJDjakJdQ2NqRSTizY pnJcK5z6T1Pc0VyAintDNcY I6hStNv LAa9H8YmKkf0QIXgqPfnZT7 ryBWpVBrzDq3brFimuTvhJR 0qAHMgdoltj380TpWil8jbJ DEwcHQg ZZbnODK8Z20qi4X6VFFuFXB bXDU3vSJ7lG0wtRbitjbfqU VmdDsgdmVydGljYWwtYWxpZ 246IHRv wZneVnAYYby7P7VnHgu9PFU xeQmqYH0nzEOvGOdfNt5wfU wzjMsjAW5uXLTtnqyip653X qTrp7uq HVGejXWwURdwPUE5N03qt9R 0BAKjQZOgLFJ0pRP0cO5tfW lnbjogbGVmdDsgdmVydGljY WwtYWxp I679EQLohXfzQj3WQak5P7R eNih9JIRysLviHH8etYRqNY epTl1vyLpzhXszFR2kJGWea xlaa825 EpJtk0nrNIUfaKPyZNmxIHB 3I38ij4U0VVMgECTsYAH0wN O0fA6kqPbdinviqRVhxKvln mVydGlj ZGtoCMptN847WINchVlfBzI heWVyOjwvdGQ+TZ43uw77Z3 TpUeopWao0VUEeZOD2aVG4c B6gWKHx JSc (more content not included)... [facility] Provider [place] 03-07-2024 Provider Orders [id number] [facility] [id number]#1.00 OTGTIFF [facility] .Auto Diff 1on 02-29-2024 [place] % 3 % Normal 04-29 [facility] Comment on above: Performed By: #### 1 [id number], [id number], [id number] #### [facility] (DEFAULT) [address] [place] [address] Baso Abs# 0.0 x10 Normal 0.0-0.2 [facility] Comment on above: Performed By: #### 1 [id number], [id number], [id number] #### [facility] (DEFAULT) [address] [place] [address] 38519 Basophils/100 WBC (Bld) 0.3 % Normal 0.2-2.0 [facility] Comment on above: Performed By: #### 1 [id number], 8331183, [id number] #### [facility] (DEFAULT) [address] [place] [address] Eos Abs# 0.0 x10 Normal 0.0-0.4 [facility] Comment on above: Performed By: #### 1 [id number], [id number], [id number] #### [facility] (DEFAULT) [address] [place] [address]39 Eosinophils/100 WBC (Bld) 0.1 % Low 0.9-4.0 [facility] Comment on above: Performed By: #### 1 [id number], [id number], [id number] #### [facility] (DEFAULT) [address] [place] [address] 47165 Lymph Abs# 1.5 x10 Normal 1.3-2.9 [facility] Comment on above: Performed By: #### 1 [id number], 0720475, 9353939 #### [facility] (DEFAULT) [address] [place] [address] 62722 Lymphocytes/100 WBC (Bld) 16 % Normal 14-48 [facility] Comment on above: Performed By: #### 1 [id number], 8831581, 8872161 #### [facility] (DEFAULT) [address] [place] [address] [place] Abs# 0.3 x10 Normal 0.0-0.8 [facility] Comment on above: Performed By: #### 1 [id number], [id number], 2232223 #### [facility] (DEFAULT) [address] [place] [address] 46799 Neut Abs# 7.8 x10 Normal 1.5-9.2 [facility] Comment on above: Performed By: #### 1 1271151, 6646071, 2268529 #### [facility] (DEFAULT) [address] [place] [address] 55227 Neutrophils/100 WBC (Bld) 81 % Normal 44-88 [facility] Comment on above: Performed By: #### 1 [id number], 9986551, 2754447 #### [facility] (DEFAULT) [address] [place] [address] CBC w/ Auto Diffon 4 Erythrocyte distribution width (RBC) [Ratio] 13.9 % Normal 11.5-15.0 [facility] Comment on above: Performed By: #### 1 [id number], 8831466, 4448577 #### [facility] (DEFAULT) [address] [place] [address] Hematocrit (Bld) [Volume fraction] 45.3 % High 33.7-40.4 [facility] Comment on above: Performed By: #### 1 [id number], 1355560, 1778921 #### [facility] (DEFAULT) [address] [place] [address] Hemoglobin (Bld) [Mass/Vol] 15.5 g/dL Normal 11.3-15.9 [facility] Comment on above: Performed By: #### 1 [id number], 2644880, 5658261 #### [facility] (DEFAULT) [address] [place] [address] Man Diff? Auto Invalid Interpretation Code [facility] Comment on above: Performed By: #### 1 [id number], 2187508, 0801521 #### [facility] (DEFAULT) [address] [place] [address] 20476 MCH (RBC) [Entitic mass] 29 pg Normal 24-34 [facility] Comment on above: Performed By: #### 1 [id number], 3725443, 0511345 #### [facility] (DEFAULT) [address] [place] [address] 05220 MCHC (RBC) [Mass/Vol] 34 g/dL Normal 26-37 [facility] Comment on above: Performed By: #### 1 [id number], 2717237, [id number] #### [facility] (DEFAULT) [address] [place] [address] MCV (RBC) [Entitic vol] 86 fL Normal 81-100 [facility] Comment on above: Performed By: #### 1 [id number], 9457122, 1183087 #### [facility] (DEFAULT) [address] [place] [address] 47650 Platelet 213 x10 Normal 138-427 [facility] Comment on above: Performed By: #### 1 [id number], 4392574, 1992300 #### [facility] (DEFAULT) [address] [place] [address] 00203 Platelet mean volume (Bld) [Entitic vol] 6.8 fL Normal 6.3-10.2 [facility] Comment on above: Performed By: #### 1 [id number], 4640150, 3378303 #### [facility] (DEFAULT) [address] [place] [address] RBC 5.28 x10 Normal 3.70-5.30 [facility] Comment on above: Performed By: #### 1 0435180, 4769719, 1009316 #### [facility] (DEFAULT) [address] [place] [address] WBC 9.6 x10 Normal 3.5-10.5 [facility] Comment on above: Performed By: #### 1 7323579, 3358900, 8579399 #### [facility] (DEFAULT) [address] [place] [address] Ferritinon 02-29-2024 Ferritin [Mass/Vol] 20.6 ng/mL Normal 12.0-150.0 [facility] Comment on above: Performed By: #### 1 1282823, 6328109, 4588406 #### [facility] (DEFAULT) [address] [place] [address] Iron Levelon 02-29-2024 Iron [Mass/Vol] 61.0 ug/dL Normal 28.0-170.0 [facility] Comment on above: Performed By: #### 9 [id number] ####[facility] (DEFAULT)[address] [place] [address] [id number] 02-28-2024 HNO ID: [id number] Author: IGNACIO GUY MD Service: ? Author [...] for three cycles. They will meet with [employer] HELPER to review the IUI checklist and sign consents. I spent a total of 45 minutes on the date of the service which included preparing to see the patient, [id number] patient care, completing clinical documentation, counseling and educating the patient/family/caregive r, and ordering medications, tests, or procedures. 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 They will meet with COMMERCIAL BAKER HELPER to review the IUI checklist and sign consents. I spent a total of 45 minutes on the date of the service which included preparing to see the patient, [id number]-svis patient care, com (more content not included)... Normal [facility] IGP,APTIMA HPV,AGE GDLNon AGE GDLN ACOG TESTING Note . [facility] Comment on above: TESTS RESULT FLAG UN ITS REF RANGE LAB Clinician Provided Cytology Information Source.............Cervix;Endocervix No. of containers..01 ThinPrep Vial Age Tayler SINHA Amaya... FLAG LEGEND: L-Low Normal,H-High Normal,LL-Alert Low,HH-Alert High <-Panic Low,>-Panic High,A-Abnormal,AA-Critical Abnormal Performed at: 01 =G [address] [address] Dagmar Love MD, IGP, RFX APTIMA HPV ASCU Note . [facility] Comment on above: TESTS RESULT FLAG UN ITS REF RANGE LAB DIAGNOSIS: 02 NEGATIVE FOR INTRAEPITHELIAL LESION OR MALIGNANCY. Specimen adequacy: 02 Satisfactory for evaluation. Endocervical and/or squamous metaplastic cells (endocervical component) are present. Performed by: 02 Edel Sewell, Assurance Analyst ([facility]) . 02 Note: Note 02 [...] <-Panic Low,>-Panic High,A-Abnormal,AA-Critical Abnormal Performed at: [address] [address] Dagmar Love MD, Performed at: =G - [facility] [address] [id number] Liquefier: Dagmar Love MD, Phone: [phone] Performed at: [facility] [address] [id number] Liquefier: Dagmar Love MD, Phone: [phone] BRUSH-SPATULA CERVIX ENDOCERVIX [facility] Coding Summaryon 02-20-2024 [facility] XodmmiolMRo9vRg+PGhlYWQ +VZ9HLAGmM57ucVCejY2eO7 NMTElOSywgQVBQTElOSyIgb bKwNT6ivFCnFBQj IC8+MU0dQDCqHtwlfWLcl4F 1nKZ0N30zhw0iADspsCM7QL DdIiRwtqxmk3gasZe6TSziH mluOyBt KZOoiC94QIX6kE48Fe91jTE vdSHyb8vogOt5PyUfVDBiKO D0bLxjDSgoe7RyBDPdN08tt PWqa7Z9 TJUbnLsriDKwAgPelSW8zP0 nDJireqhox6ixaehhNni1oz 07qWQjf1S2zPY7U8PdleT8C GJvbGQg PkndhHNOpG9ewjret2iedgz nOrOsZGNiMQw5SXz4UTIbpC gcLnGkNR42HIC5RZLycgRwE 2FsLWFs eMosOqH2m7C9Rt7OV4HLBjh gW2BTUUZTEQtwzTW+PC90cj 22O7JfNidnSfn5MEEfBZH1u LM0lV6f HFHpVBsni8C0cYJ9H4JozsT jlj9ij1ksTPOcDSduR27zkF Gdq7W2GXOhfJT1JIFmoZvdP iBzaG93 Oyc+UROqoHpxd2QkMyzbl9u wy7prtDq8UphkATAizmBuxZ gxGTB4r3GpFv3pSJLgqFJ4g ZF3vJ8g VpTdDrA8VWhtV543NqCcvHA eTnsqL98uQ6KgjZM+PHRyPj j6KGEybVbmIP3bC0YoJTQqj mctbGVm pEobIC6kXIGaivlhIIFgyS4 kACHhS4z0KuMyUlM6WScrN4 OcGQVvwrokVx67iK8pNdLxO nS5HBuj Z6UbwxH0POSaiFKsASogVLT 7X17eg2R0PZKjMMNePSY1hZ R6cN1yjRtjkmyciDPdkGnin mVydGlj HVfdCDohD339KAVioLetEpG vZGluZyBEYXRlOiAgMTEvMD QvMjAyNDwvdGQ+SRZjSUD9o WxlPSAn zEMgHMebMd4qmLsgkZpzRJ8 bOWVlwxhfQZHqtH0tRZMdyP ShdTcwGU0tVJQdjifmd756K iAxMHB0 IYRyrJGiE6ZcaC7kKgDoXQM aQJHkZ4UdeQOmRFvzW807PT okMiA8BUAmyzHnF0BqLRBug WduOiB0 g2S3Pe5Ly0EhwbgaD4CawTU sJdSeUefpOKp7D3VoFqgcjO I+EA35RMOdLQ02VYs5NUZ2u WxlPSdi VAVyB6LtcI5dJnAcMDOiLWC kOyc+PHRhYmxlIHdpZHRoPS ooICKqQgCryQasVP2fZq3bE GVyLWNv rRcleUEsCiKfc3jhDSGeECq aMW7bnPglR5NjtPQ6JFFng6 s6Vw01B74tX1LhaVC+PGNvb RS3lJK5 hB5vAsChEdW6CTanR429EdM xxEKgGzwfm8qab6qdjCa7Iv O1LSGkasTdwDbzEZX4y2LeC a97Y06r IHdpZHRoPSIxNSUiIHZhbGl jeu2pbG6fUx9+DOGtmUJ2eE I2eO2hAkHyKeI6KGdhA983O nRvcCIv Uciau6bwi9qefRw3BsYyZBO crzZglXlyWJW8i7MxZr22P7 DwyRmhz9BrRup8uc73oKJpf 7V5bWX8 U4IrSXCcrernqHRxvTxhWJ9 kVXUyddbsRIUppY2oVZOfQ6 y0VzTwReG0NEnjH6FsqjS3L GJvbGQg IWUwiMWLxF4grcbrn5gvivo rZgUaQZUmLKt3IKv6TEVttI tlVgQdPSF4PhT4IHX6mCXlq U1jhQyp eyeldS0cEkb+AGS7lKEqvZT OMP7aZjjbnTM+GLYcFOL7zD kjGZjlLGHvdW0gCWKxX5n1T iAwLjA1 SIcjH4XiyoP4VUDsjRLvNCM uwCIMnG5hojiox6kbzexgCz OoGOMsWUn2ZRz1MLKufQbzF iBsZWZ0 KtE7NCL4cEYrjI5mkMyjlqv xmY1yOvw+XwznzSetVRT5UI k8X9LlPfl3GMWuvRytEF9iw GFkZGlu Ak0ctVsxfPlqRZ7cCSJqxjo wp045HlOis2duUTAohSQeZD vsLKW4A05ga2Y2YUOwANWwW NZ4wJB2 hB1toOexwswsbBUxiFcuzuF yxRskDZerLRfdT956HYUsfM enChDbAUh5Y7MlQij5VDHqs RceJK7i qHPeSEvaUe6epEfgzVcaKN7 rGGXvjmqob831EpGpk1yxOE QhdUXjEExaZPF4H53hk8U0X CMwMDAw TZA5aAR5gQ2boSlykhtjsCQ mdDsgdmVydGljYWwtYWxpZ2 22XHZrrTwnItYcnGo9P6AwP fn2ALOm fAugLD0ukHHaBHyfNi4eiSj zuMbtVM5iPXHajynnq253Cm Wok3mzUVXvoPAmIIwwWIE8H 61kd6K5 QVLxRVOgMQP1sMR5xS0uiFb nbjogbGVmdDsgdmVydGljYW fvDUqwZ956DCKmtMzpYcEnd GllbnQg MEwbKYc7L3GuKggjoZE+PC9 5OJTnES14vBCymCZcn8yghQ s5TwVjRBPqTGF8dCffZGrhb 3JkZXIt Z99vuEOzd2W3CTZvhFwmaMY fWwAktCV1iT9rCEhatulrg3 ykcfraSsljk2svvs22hP95V 29sIHdp ZHRoPSIzMCUiIHZhbGlnbj0 bxB3sRr0+HAQdlSH4qHR3kV 4jVPFgZiQ4RFmtC559AyDym CIvPjxj d2kfg4qiuSo0LdK6BKUgkyU gxOwvTBI6o5DbXs36P82rDL dpZHRoPSIyMCUiIHZhbGlnb d4uuS6d Ii8+ETYarXE2rHB9pC7tWiU xWxX4INhnX910FgHaiYIvBm chN39vR9RywJK+YZJvDqq9W CBzdHls UU3yvVLzICtiGx4lTQN1IoT bGcSoVKcrI3WkKSDzzomjpd vgmTE7VRGwBIQvtS60Ew0qc DogMTBw zFCIeF1mmmdln6ddlkflGlS dMYLdYDj5HLy6DOOnkPkkNw KnXSX9PrX0ZRT8gHYywF4vj Glnbjog mV3iP6EjXAFegluoZx48xB8 gTvAjSyZ8DNmyHyn+TUNDQU 5OLCBIRUFUSEVSIEVMSVpBQ kVUSDwv dGQ+KCFsVTH4nNbyCDhpBOZ obM1qOLKbZ4g3QbRdDsW8ZO mfS0JrFAKgaxrqOs48sP8iC iAwLjA1 IIwdM0WpunK7ZJGlsNLsUIl mBXW8M84be6M5TACuGWCkJB C7eKP9yJ1rqZryxrapaMTua DsgdmVy qDgbGGcrNGfvA353BVNwxWi zUlRkYnY9YhR3MPF2Z6HcNh e5VOTpcKyaXG6xeWVgMDmzW q8ixArj jVspMT2gLACamdkgOKUvgN4 lEPNhbURxpGahTV9lATTwfb hvk063PiCaZOV4DAVmpVZaS 2SeqA6r RlSiYHYsLVRyA8OnbNSqHTt aE263UUwpXnO1YNXmbmJpP0 HnECGbdWulOpV2p7S3Ti1pR CBZZWFy czwvdGQ+CWYfCBB7oLmrWOs mOQBblS9cFFZjE6g0EsUyVu U6SVdhG5MtHPIsyyyiIa56s Z8yDhQu McA3VRulV0HoxjX5HBGhnOB zNNfqBZR5P27mh2B2WXSvRO HrRPW2jZA5yH8jxSafxspnv GVmdDsg gmLdaEmyJVboSJdxL924PNA vcDsnPkZFTUFMRTwvdGQ+PH NhVUX8sSgbDUraVXQyhM5sG BOfO3j1 EuMxFbD5OQsyA0NbESFtxjv mYj02qP4hKeSxRwF5ZAkrI1 GpsqK7IEWiwRHiGKsgJHV5J 41lf2T1 YWJtRFWpWFY8vTF5vS5nmBi nbjogbGVmdDsgdmVydGljYW ltVJitK222PXBlkJuyUwZeI 3Vycmlu WoLQyHUvVDDlUN39RM56FJ3 8V5FfKxmyaYPksOY+PHRhYm xlIHdpZHRoPScxMDAlJyBzd VtdRG6p Rg5hQQHjOZQhdMggwXJtEaK hj9ftBPKaVRocYY6aeAzuO3 IdxBX6EYMfa7j7Vb50T85sP 3JvdXA+ XRQwePY5tUU2oT0wWcZwIvX 0OMxfX884OtOftFZyVwqbi5 lqj4usxSd6AnQlXERimsDpx WduPSJ0 a5PrQp91E29ySPhvOUKpPSA rXDUoPQJsuJjtsd8foY8yYk 8+YLFftGZ7vMN8sB3qPaOaX wU9MYlq Z408MoZqePFiDrknA23nY0G vdXA+HALeJiv6KZVltMrmEJ 3agMFzNMhlBe9kMOA4LiZqB jIwMGlu R2SgWLHvmezatsfdfQF9UJM vHPYayW42Ai3lkSanIc0oOX FdNLS0YUHjsBDuS6FttP0tW iAjMDAw XZSpT7ImgCWjUXsrB363LEe zQcX8LRYniqJfY3KgSZDwmW ynGsE9o1S8Nb9GsJtrxTUnG L6oJnQv ULh7V2WcZcg6MIGccPdpRF9 fdZCkTRedZd0ziAyfmMxeDL 5sLLOdjuafo525VnFpa1tkI DEwcHQg CCgbJUK5C93sx6F0EAEcUAK rURK1uDO4pX8enCvrflehaO VmdDsgdmVydGljYWwtYWxpZ 246IHRv rFwiFsXCHvs3J0GdUfp4ZOU zkBsfTI3ylATfDCidZi6ebT qehBxyCL9yFFNraakou651P wTyv3jh XSIdfTCoZJfeVVY2A38ie7S 2QFPsKFJyXYG4jQZ3eC5vwA lnbjogbGVmdDsgdmVydGljY WwtYWxp Q970EONfbFxdUp7JBid2I6K jHtf2SNNtvIxpUJ8dvNFaTT urDc0njFrrtCljRM8fAXUuz eyeg473 WaUyc1koSVFnfESlQRnlYVV 6L04li8P5CPEeYCOfSBV1rA S1cN3lzOezgtphsJGnrKvoa mVydGlj QTfmTOloJ203ZBQxsXduXtP heWVyOjwvdGQ+AM14fj33P8 SxCwayOlc5ESLzOOT8nEO2d T5qILHo [facility] (more content not included)... [facility] Human papilloma virus 16+18+ 31+33+35+39+45+51+52+56+58+59+66+68 DNA [Presence] in [facility] 02-20-2024 HPV 16+18+31+33+35+39+45+5 1+52+56+58+59+66+68 DNA Probe+sig amp Ql (Cvx) Human papilloma virus 16+18+31+33+35+39+45+51 +52+56+58+59+66+68 DNA [Presence] in [facility] . [facility] Comment on above: TESTS RESULT FLAG UN ITS REF RANGE LAB DIAGNOSIS: 02 NEGATIVE FOR INTRAEPITHELIAL LESION OR MALIGNANCY.Specimen adequacy: 02 Satisfactory for evaluation. Endocervical and/or squamous metaplastic cells (endocervical component) are present.Performed by: 02 Edel Sewell, Assurance Analyst (AS[facility]). 02Note: Note 02 The Pap smear [...] Low,>-Panic High,A-Abnormal,AA-Critical Abnormal -----Performed at:02 WB [facility] [address] [place] [address] Dagmar Love MD, Nyvuzwhwr at: =G - [facility] [address] [place], [place] [id number] Director: Dagmar Love MD, Phone: [phone] at: WB - [facility] [place], [place] [id number] Director: Dagmar Love MD, Phone: [phone] No Panel Informationon 02-19 Reference Lab Test Patient Age Note . [facility] Comment on above: TESTS RESULT FLAG UN ITS REF RANGE LAB Clinician Provided Cytology Information Source.............Cervix;Endocervix No. of containers..01 ThinPrep VialAge Olafo SARIOG Amaya... FLAG LEGEND: L-Low Normal,H-High Normal,LL-Alert Low,HH-Alert High <-Panic Low,>-Panic High,A-Abnormal,AA-Critical Abnormal -----Performed at:01 =G [facility] [address] [place] [address] Dagmar Love MD, .Auto Diff 102-06-2024 Auto [place] % 6 % Normal -12 [facility] Comment on above: Performed By: #### 7 [id number] #### [facility] (DEFAULT) [address] [place] [address] Baso Abs# 0.0 x10 Normal 0.0-0.2 [facility] Comment on above: Performed By: #### 7 [id number] #### [facility] (DEFAULT) [address] [place] [address] Basophils/100 WBC (Bld) 0.3 % Normal 0.2-2.0 [facility] Comment on above: Performed By: #### 7 [id number] #### [facility] (DEFAULT) [address] [place] [address] Eos Abs# 0.2 x10 Normal 0.0-0.4 [facility] Comment on above: Performed By: #### 7 [id number] #### [facility] (DEFAULT) [address] [place] [address] Eosinophils/100 WBC (Bld) 3.4 % Normal 0.9-4.0 [facility] Comment on above: Performed By: #### 7 [id number] #### [facility] (DEFAULT) [address] [place] [address] Lymph Abs# 2.4 x10 Normal 1.3-2.9 [facility] Comment on above: Performed By: #### 7 [id number] #### [facility] (DEFAULT) [address] [place] [address] Lymphocytes/100 WBC (Bld) 34 % Normal 14-48 [facility] Comment on above: Performed By: #### 7 [id number] #### [facility] (DEFAULT) [address] [place] [address] Wasco Abs# 0.4 x10 Normal 0.0-0.8 [facility] Comment on above: Performed By: #### 7 [id number] #### [facility] (DEFAULT) [address] [place] [address] Neut Abs# 4.0 x10 Normal 1.5-9.2 [facility] Comment on above: Performed By: #### 7 [id number] #### [facility] (DEFAULT) [address] [place] [address] Neutrophils/100 WBC (Bld) 56 % Normal 44-88 [facility] Comment on above: Performed By: #### 7 [id number] #### [facility] (DEFAULT) [address] [place] [address] CBC w/ Auto Diffon Erythrocyte distribution width (RBC) [Ratio] 14.0 % Normal 11.5-15.0 [facility] Comment on above: Performed By: #### 7 [id number] #### [facility] (DEFAULT) [address] [place] [address] Hematocrit (Bld) [Volume fraction] 41.7 % High 33.7-40.4 [facility] Comment on above: Performed By: #### 7 [id number] #### [facility] (DEFAULT) [address] [place] [address] Hemoglobin (Bld) [Mass/Vol] 14.1 g/dL Normal 11.3-15.9 [facility] Comment on above: Performed By: #### 7 [id number] #### [facility] (DEFAULT) [address] [place] [address] Man Diff? Auto Invalid Interpretation Code [facility] Comment on above: Performed By: #### 7 [id number] #### [facility] (DEFAULT) [address] [place] [address] MCH (RBC) [Entitic mass] 29 pg Normal 24-34 [facility] Comment on above: Performed By: #### 7 [id number] #### [facility] (DEFAULT) [address] [place] [address] MCHC (RBC) [Mass/Vol] 34 g/dL Normal 26-37 [facility] Comment on above: Performed By: #### 7 [id number] #### [facility] (DEFAULT) [address] [place] [address] MCV (RBC) [Entitic vol] 86 fL Normal 81-100 [facility] Comment on above: Performed By: #### 7 [id number] #### [facility] (DEFAULT) [address] [place] [address] Platelet 196 x10 Normal 138-427 [facility] Comment on above: Performed By: #### 7 [id number] #### [facility] (DEFAULT) [address] [place] [address] Platelet mean volume (Bld) [Entitic vol] 6.8 fL Normal 6.3-10.2 [facility] Comment on above: Performed By: #### 7 [id number] #### [facility] (DEFAULT) [address] [place] [address] RBC 4.84 x10 Normal 3.70-5.30 [facility] Comment on above: Performed By: #### 7 [id number] #### [facility] (DEFAULT) [address] [place] [address] WBC 7.1 x10 Normal 3.5-10.5 [facility] Comment on above: Performed By: #### 7 [id number] #### [facility] (DEFAULT) [address] [place] [address] Ferritinon 02-06-2024 Ferritin [Mass/Vol] 15.8 ng/mL Normal 12.0-150.0 [facility] Comment on above: Performed By: #### 1 [id number], [id number], [id number] #### [facility] (DEFAULT) [address] [place] [address] Iron Profileon 02-06-2024 Iron [Mass/Vol] 72.0 ug/dL Normal 28.0-170.0 [facility] Comment on above: Performed By: #### 1 [id number], [id number], [id number] #### [facility] (DEFAULT) [address] [place] [address] Iron Sat 19 % Low 20-55 [facility] Comment on above: Performed By: #### 1 [id number], [id number], [id number] #### [facility] (DEFAULT) [address] [place] [address] TIBC 384 mcg/dL Normal 250-400 [facility] Comment on above: Performed By: #### 1 [id number], [id number], [id number] #### [facility] (DEFAULT) [address] [place] [address] Transferrin [Mass/Vol] 274.6 mg/dL Normal 192.0-382.0 [facility] Comment on above: Performed By: #### 1 [id number], [id number], [id number] #### [facility] (DEFAULT) [address] [place] [address] Coding Summaryon 12-11-2023 Coding Summary HTMLBase 64 GaoxlmtwYGo4oFp+PGhlYWQ +SX5JZPLjJ55qvNKmcW8zS0 NMTElOSywgQVBQTElOSyIgb cCjEH0pbXRyXQHb IC8+RQ6oVNEoGoaoqYEws3S 5lRT3O68pin5gNHohxAW5VQ PmGcRxhbmas0lnhUp4QUsyY mluOyBt PQQfrW55QZQ1fF87Wb14qEI qsMAiu5wvtSc9NsMlZPThEA D2xDhlXQlgs0TeEFEpS21ai EFoa7V8 DDGmiXiahVYtTqLndUP1aZ5 pSPgyeaaai2kvdwnjGnz5vn 80cAJkk2K9zZM4V6KfmxE0S GJvbGQg ElgyyINMqS5bplnro0xting fAxDgCDHjGWx3JIy9LAKtuV vwSkWaJG21YJP3EZQizwYfO 2FsLWFs eHsgQjP8t2W1Hx7RD4VFCmt jR0KZUZGAFHeddNW+PC90cj 51K1IvBhvzGbc7FNQiNIX5u HQ7yP2o HLHgZXbec1K4sAA9Y1LqabP rik4ot7lkAVTxEFtqH76bmN Kev2Y1KXMxuOH5RIZqcZnzS iBzaG93 Oyc+HETxkRwao8UyRrotj6c dg5pkkNp3DzxgTQKxmmXooQ rqLXX0q5LbWj7bYICetKS6x PU5uZ2h IsOePqU2QVfoG798SyEwqHC aXjcpI11zY6FbiBD+PHRyPj y5DOObeTcuBJ1tV2YlLOZju mctbGVm cRnaZG5jCPJiujivXEMtbJ9 qGOOlC5b6AeEzJuA2MAebQ4 HxKZZjldlzTw85wI0nHhWzL rH7FAar N0YpfpD2EDMndWTaCNhyWTW 6J46yg0I1MFZxDTYiYLK4bQ F1wP0odHdurnqazMJoqTnim mVydGlj IVcfQGhkQ418PXNhyMujJcY vZGluZyBEYXRlOiAgMDgvMj UvMjAyNDwvdGQ+SUXzWNR0n WxlPSAn yHVmOHizUe7qnQylyNqvPT9 yGNGpmeqnOJOlhB5yZOJlmT IylTetKU8uDOGokgmld508S iAxMHB0 IWEzeIRiH3HnbL4sCtDtMKL rXWOfA6WghOUjFEujY535ZD ozXxK0IFMhpdFvP2OiPTHmm WduOiB0 m2S7Ps5Yc5SifhddP4GxaWL uWrOgQagqEJr6K7AgNrpqrX I+MO93DPBpMA73AMv8BMC8g WxlPSdi BFEtC1SxnD7xEkFwHHZrNVQ kOyc+PHRhYmxlIHdpZHRoPS qgUBCfBgEfyNjiHT0vZy4oN GVyLWNv aYljoEMgBeZoe8irXNEcIBj bTG0nvYadI0GrxTY1PNHip7 i6Em01O78kU8IqcCK+PGNvb PA7mAX4 zZ6tWpCyGnD6CVeqI439SkH axZCuYgswv2dfd1enfHr7Yv E2ZQEorcQblZghZVH3j5RqR j68N63x IHdpZHRoPSIxNSUiIHZhbGl bnl5seT2yLs8+UOLhiPG6jR O1vN7aGvXuBzD7BDuuB623K nRvcCIv Nidsg5tlk8jpiPl9MnAcYCZ fxnExcVfwSQG6p6IkLw42M5 WwjGcoy1MvUym0qq05aMWrh 5E1yTN3 I4BkLPHxeezknIHegZzjCS5 eOILzgprgTKMgfB7aNERpE8 z2AcJmRjF9EBblU1XzsiE3I GJvbGQg YODkdCLZuB9hkcxtj8dffnj xWwTnELLqDUe1BPq2DTXjkM csWlVhKNA3MxG2IZM3zHLxf U5csSol bricsG4kEtx+KKD3jRJoeNQ QEU9lYlejlAI+RQOrXZO0yM nlNFseQSJxaU2oEQXpU2z8Z iAwLjA1 DCsgQ6DmrwW4VKJirOAfJXJ poNXKrM4psddrd5huwkicKs VqRUUxIYo9QQz2WYZoiJrmJ iBsZWZ0 HpV2IUW9lAVndN4ojLjmctp ubV0yVjf+RcxgdGkdWVG5NO f5E6YdJvk1RENpxQflKB6td GFkZGlu Wu3qiHmfaIcyTQ6iZEBzqwu bq100XpSaj4plVSNotHUtCO xiMXI5X56wm8L3HVHqYVFjL OC8xIO9 cI1igQeyypmweRSysQnxwjH awHhaBAdqUEluS546QHKhdL lpBtXlBWg1L3UpDpa1IRJic XsjDR7j eKEiGPbmBt4plTckwGkrHE7 wYLUtswymw200DiIeu1rsTW CfyGVzDToePHZ2Q79ci9Z1T CMwMDAw MDH3tJG6yQ4tyPzgxacxxAF mdDsgdmVydGljYWwtYWxpZ2 21NFIcmAilNvAroAb3R3QqE hg3WCFj sVzyHL2nzCEaJTinWt5puNu zpHvuQH5lWIBftepjv635Jc Kng0enSCBwtPWoLWqyJIH2Q 48of5G0 KRDlVCGeYTB4xIJ3gE4pdQo nbjogbGVmdDsgdmVydGljYW caCPgwV975QFJvaKxrYiWug GllbnQg GNyhLHj4Z6SqFdkdzAS+PC9 6LCXxJN38rGSlnBHkl1chrA e2JiOnRSNmIMG0mBclSDwpf 3JkZXIt B52xlYRnu1Z7IKNcnYyxiCJ iPpFcyEI7lR5iPNhkdfhwc1 zjypydGbbpo1bjaa49wI11F 29sIHdp ZHRoPSIzMCUiIHZhbGlnbj0 weL6dTs7+GPRmoPR4fST5dJ 0fZSUjGjF3VEkxM139MqUeh CIvPjxj k4qgv7tfxBi5CdD0PNQmkiZ gkSnuRHS5d4TdGu54O03fMI dpZHRoPSIyMCUiIHZhbGlnb a9rwG2x Ii8+FSOqiRJ1mBD7aZ3dGcO yZkP9RYtuR036GrHdpCSdIu smN80mG5VsxJC+TBUuLdg6Z CBzdHls ZA3haUScAEzwHd0sNTV6EmL jLxCbQXmiY7GqAOEimzbwpg thuKV0FIQsCNUzrP08Ff0al DogMTBw qOKYsK4fnvdxj2llubtnUtR pKOLwFDz8AZp6IWNnfKrgMv BbJGJ0BdB8ORK8iMXwvV1lj Glnbjog lL1fT9HkLRRqdwydRk14kK8 lOwXdWsA1GOhcShd+TUNDQU 5OLCBIRUFUSEVSIEVMSVpBQ kVUSDwv dGQ+QNTfHGX8wVibCFnoOXN sjZ8mARVhR9d7GqMeVzC2AP tkK3YwTOChnemdVf59gX5zM iAwLjA1 GSjcE7KsjrU1BRYpbGDtQLw pNMO7M16lx6P5VLIiBTQkRM A8kGX8uH6dcNihxbrbqXVig DsgdmVy uTrhEGwiAHqnB606ULBlyJz aZwZaNzF0HpF3AUX7G7FxXj z1PAEgiPqhVE4ceLRwDUlyB r3dbGxa iIvjGI8wJUFijdicOCBxeE3 aGDPivMNrbXojNR6mLLMhrd ils601SqPwUAJ3QGPzmHNhN 8EwsY1u DiFpPHCsNVGgX4JeqSAdIOd zR300CWuqUkJ4IFKvkwJsQ3 YgRMSijRawXjE7p2N1Lm3hW CBZZWFy czwvdGQ+CNVdHMD7kPywFBl iWQLurA4bJVRlO5u9RnIoZg K4MCxzF2YhHHTwyewvYs57x X6bHsQe SyI9JKcfC4OlpwX6NZSpaXR fATmkZBY6J60ik1N1GTDzOY ZpOCD4oIP3zK1hmIbqdgzpr GVmdDsg lhZksFguLXzxAGgnF489ZAQ vcDsnPkZFTUFMRTwvdGQ+PH KjQNV0nExdTObzBDJyrW4aR RCuP2x3 WyStCxC0UIubL8YjGCJcekl hQy68iQ1xOxWcCqF6IGewG3 QtxlW0TUTicQHjHPeiCOC6C 11at4P0 NCJbMSMgQYG9dFY0rZ3cvAg nbjogbGVmdDsgdmVydGljYW sfYFblW171DRVtoVumYzOoW 3Vycmlu QuASqYXwGOQjIP37DZ90VK6 1K9OlOxxwqXIyoDU+PHRhYm xlIHdpZHRoPScxMDAlJyBzd UrwKU5j Rn1yAFVwXYZqoVgvzFWdHmW ye2mhQEEhWFeaDX8haTiwR8 KkvAI5NKYeu2a3Nn03C82tT 3JvdXA+ SGRoaJZ3tZG6hL6wPmZaOlO 0FLivH361ZmIuoJCjWkngi9 wab8fjpGu5WjAsTUFgvrUpy WduPSJ0 t5CpGj30X95mJWjpBXLjYSD qTQPmVKQcxJgzsq7dxV7xZc 8+SURrfKC0eTX6tG4lQkZcA bN1JFlz A403SbLyiCXdQzpaG93rB8A vdXA+QDXyWbc6KXOhiThsBN 2ogBOePZfyWg3cBTR6FcWrG jIwMGlu J7FqWEDcscndppwmeKX2ABQ rRKKyeJ23Tw4ebQgcGi9eRT CePVC1FTSppGHoF5CmsC3jL iAjMDAw DYEbK7UldYYyZFeoD999FPd bZtF7WMMejiTwR8NdCPYsaW kfMoR4c3J1Uj7XtUwnsYVeC G9qHiTu PSc1P1IeMmq3WYSqvHhoBC7 plECsIDegHr3fsWpdiTriAE 6dWIBobdayi746JmTgw6uwH DEwcHQg ZCaiUSE8F84sp2Q3XOWfCBG gPMJ2xPS9wK5svSlqsnnwjB VmdDsgdmVydGljYWwtYWxpZ 246IHRv rIfoNpGHVrn4B2PgVuu3YTG obGirNY7rfWThLNhjUl9izB nnwLvxFG7wPMVxvghzr911K fIex2jo ZCGqjVDfIYotJVU2R76zq3R 8YRPdKJViZOY2aPJ5rC3hfU lnbjogbGVmdDsgdmVydGljY WwtYWxp B255OKSgvZhxPv7TAio3Q3K dIuu7XBSoxHvlPC3bbXJsDP kxZn9egPahxPwpWI9dCWVje xqkm917 OwVmp1kdAEWsoWYsHLefZII 1B67tf9D3FCDoHYArXHN5dE W2kJ8csVebagpflSAraRotm mVydGlj HPumCPmlZ048OVWwtBucQbS heWVyOjwvdGQ+LV43vf22B7 YvSakfFye8AOHqGMB0tKC8c N3nCZKq [facility] (more content not included)... Normal [facility] Amphetamine Screen Ql (U)Ord ered By: Andry Lacy on 12-07-2023 Amphetamines Ql (U) Amphetamines screen Negativ e [facility] Amphetamines Ql (U) Negative Negative [facility] Barbiturates [Presence] in U rine by Screen methodOrdered By: Andry Lacy on 12-07-2023 Barbiturates Screen Ql (U) Negative Negative [facility] Barbiturates Screen Ql (U) Barbiturates [Presence] in Urine by Screen method Negative [facility] Benzodiazepines Screen Ql (U )Ordered By: Andry Lacy on 12-07-2023 Benzodiazepines Ql (U) Positive High Negative [facility] Benzodiazepines Ql (U) Benzodiazepines [Presence] in Urine by Screen method High Negative [facility] Benzoylecgonine [Presence] i n Urine by Screen methodOrdered By: Andry Lacy on 12-07-2023 Benzoylecgonine Screen Ql (U) Negative Negative [facility] Benzoylecgonine Screen Ql (U) Benzoylecgonine [Presence] in Urine by Screen method Negative [facility] Cannabinoids [Presence] in U rine by Screen methodOrdered By: Andry Lacy on 12-07-2023 Cannabinoids Screen Ql (U) Positive High Negative [facility] Comment on above: These are unconfirme d results and should not be used for legal purposes. Drug Cut-Off Concentration: AMPH 1000 ng/mL LUIS ANTONIO 200 ng/mL JOHN 200 ng/mL COCM 300 ng/mL OP 300 ng/mL PCP 25 ng/mL THC 20 ng/mL Cannabinoids Screen Ql (U) Cannabinoids [Presence] in Urine by Screen method High Negative [facility] Comment on above: These are unconfirme d results and should not be used for legal purposes. Drug Cut-Off Concentration: AMPH 1000 ng/mL LUIS ANTONIO 200 ng/mL JOHN 200 ng/mL COCM 300 ng/mL OP 300 ng/mL PCP 25 ng/mL THC 20 ng/mL HCG ( test) IA.rapi d Ql (U)Ordered By: Andry Lacy on 12-07-2023 HCG ( test) Ql (U) Negative [facility] HCG ( test) Ql (U) Urine human chorionic gonadotropin (hCG) detection by immunoassay [facility] Opiates [Presence] in Urine by Screen methodOrdered By: Andry Lacy on 12-07-2023 Opiates Screen Ql (U) Negative Negative [facility] Opiates Screen Ql (U) Opiates [Presence] in Urine by Screen method Negative [facility] Phencyclidine Screen Ql (U)O rdered By: Andry Lacy on 12-07-2023 Phencyclidine Ql (U) Negative Negative [facility] Phencyclidine Ql (U) Phencyclidine [Presence] in Urine by Screen method Negative [facility] Alanine aminotransferase [En zymatic activity/volume] in Serum or PlasmaOrdered By: Romeo Santana on 11-28-2023 ALT [Catalytic activity/Vol] 14 U/L 7-52 [facility] Albumin [Mass/volume] in Ser um or Plasma by Bromocresol green (BCG) dye binding methoOrdered By: Romeo Santana on 11-28-2023 Albumin BCG dye [Mass/Vol] 4.6 g/dL 3.5-5.7 [facility] Alkaline phosphatase [Enzyma tic activity/volume] in Serum or PlasmaOrdered By: Romeo Santana on 11-28-2023 ALP [Catalytic activity/Vol] 41 U/L 34-104 [facility] Aspartate aminotransferase [ Enzymatic activity/volume] in Serum or PlasmaOrdered By: Romeo Santana on 11-28-2023 AST [Catalytic activity/Vol] 13 U/L 13-39 [facility] Basophils Auto (Bld) [#/Vol] Ordered By: Romeo Santana on 11-28-2023 Basophils (Bld) [#/Vol] 0.0 10*3/uL 0.0-0.2 [facility] Basophils/100 WBC Auto (Bld) Ordered By: Romeo Santana on 11-28-2023 Basophils/100 WBC (Bld) 0.3 % . [facility] Bilirubin.total [Mass/volume ] in Serum or PlasmaOrdered By: Romeo Santana on 11-28-2023 Bilirubin [Mass/Vol] 0.5 mg/dL 0.3-1.0 [facility] Calcium [Mass/volume] in Ser um or PlasmaOrdered By: Romeo Santana on 11-28-2023 Calcium [Mass/Vol] 9.4 mg/dL 8.6-10.3 [facility] Carbon dioxide, total [Moles /volume] in Serum or PlasmaOrdered By: Romeo Santana on 11-28-2023 CO2 [Moles/Vol] 27.8 mmol/L 21.0-31.0 [facility] Chloride [Moles/volume] in S betty or PlasmaOrdered By: Romeo Santana on 11-28-2023 Chloride [Moles/Vol] 106 mmol/L 98-107 [facility] Creatinine [Mass/volume] in Serum or PlasmaOrdered By: Romeo Santana on 11-28-2023 Creatinine [Mass/Vol] 0.62 mg/dL 0.60-1.20 [facility] Eosinophils Auto (Bld) [#/Vo l]Ordered By: Romeo Santana on 11-28-2023 Eosinophils (Bld) [#/Vol] 0.2 10*3/uL 0.0-0.45 [facility] Eosinophils/100 WBC Auto (Bl d)Ordered By: Romeo Santana on 11-28-2023 Eosinophils/100 WBC (Bld) 3.5 % . [facility] Erythrocyte distribution wid th Auto (RBC) [Ratio]Ordered By: Romeo Santana on 11-28-2023 Erythrocyte distribution width (RBC) [Ratio] 14.0 % 11.9-15.3 [facility] Globulin Calc (S) [Mass/Vol] Ordered By: Romeo Santana on 11-28-2023 Globulin (S) [Mass/Vol] 2.0 g/dL [facility] Glucose [Mass/volume] in Ser um or PlasmaOrdered By: Romeo Santana on 11-28-2023 Glucose [Mass/Vol] 76 mg/dL 70-100 [facility] Hematocrit Auto (Bld) [Volum e fraction]Ordered By: Romeo Santana on 11-28-2023 Hematocrit (Bld) [Volume fraction] 40.1 % 34.0-46.4 [facility] Hemoglobin [Mass/volume] in BloodOrdered By: Romeo Santana on 11-28-2023 Hemoglobin (Bld) [Mass/Vol] 13.6 g/dL 11.8-15.4 [facility] Leukocytes [#/volume] correc terry for nucleated erythrocytes in Blood by Automated counOrdered By: Romeo Santana on 11-28-2023 WBC corrected for nucl RBC Auto (Bld) [#/Vol] 6.4 10*3/uL 3.8-11.6 [facility] Lymphocytes Auto (Bld) [#/Vo l]Ordered By: Romeo Santana on 11-28-2023 Lymphocytes (Bld) [#/Vol] 2.4 10*3/uL 1.00-4.8 [facility] Lymphocytes/100 WBC Auto (Bl d)Ordered By: Romeo Santana on 11-28-2023 Lymphocytes/100 WBC (Bld) 38.3 % . [facility] MCH Auto (RBC) [Entitic mass ]Ordered By: Romeo Santana on 11-28-2023 MCH (RBC) [Entitic mass] 29.3 pg 24.7-34.3 [facility] MCHC Auto (RBC) [Mass/Vol]Or dered By: Romeo Santana on 11-28-2023 MCHC (RBC) [Mass/Vol] 33.8 g/dL 32.0-35.0 [facility] MCV Auto (RBC) [Entitic vol] Ordered By: Romeo Santana on 11-28-2023 MCV (RBC) [Entitic vol] 86.7 fL 80-100 [facility] Monocytes Auto (Bld) [#/Vol] Ordered By: Romeo Santana on 11-28-2023 Monocytes (Bld) [#/Vol] 0.4 10*3/uL 0.0-0.8 [facility] Monocytes/100 WBC Auto (Bld) Ordered By: Romeo Santana on 11-28-2023 Monocytes/100 WBC (Bld) 5.8 % . [facility] Neutrophils Auto (Bld) [#/Vo l]Ordered By: Romeo Santana on 11-28-2023 Neutrophils (Bld) [#/Vol] 3.3 10*3/uL 1.8-7.7 [facility] Neutrophils/100 WBC Auto (Bl d)Ordered By: Romeo Santana on 11-28-2023 Neutrophils/100 WBC (Bld) 52.1 % . [facility] No Panel InformationOrdered By: Romeo Santana on 11-28-2023 Estimated GFR (CKD-EPI) > 60.0 mL/Min [facility] Creatinine Clearance (Chem N/A [facility] Nucleated erythrocytes [Pres ence] in Blood by Automated countOrdered By: Romeo Santana on 11-28-2023 Nucleated RBC Auto Ql (Bld) 0.0 /100{WBC} 0-0.5 [facility] Platelet mean volume Auto (B ld) [Entitic vol]Ordered By: Romeo Santana on 11-28-2023 Platelet mean volume (Bld) [Entitic vol] 6.8 fL 6.3-10.7 [facility] Platelets Auto (Bld) [#/Vol] Ordered By: Romeo Santana on 11-28-2023 Platelets (Bld) [#/Vol] 159 10*3/uL 150-450 [facility] Potassium [Moles/volume] in Serum or PlasmaOrdered By: Romeo Santana on 11-28-2023 Potassium [Moles/Vol] 4.2 mmol/L 3.5-5.1 [facility] Protein [Mass/volume] in Ser um or PlasmaOrdered By: Romeo Santana on 11-28-2023 Protein [Mass/Vol] 6.6 g/dL 6.4-8.9 [facility] RBC Auto (Bld) [#/Vol]Ordere d By: Romeo Santana on 11-28-2023 RBC (Bld) [#/Vol] 4.63 10*6/uL 3.60-5.00 [facility] Serum or plasma albumin/glob ulin mass ratioOrdered By: Romeo Santana on 11-28-2023 Albumin/Globulin [Mass ratio] 2.3 {ratio} [facility] Serum or plasma anion gap de terminationOrdered By: Romeo Santana on 11-28-2023 Anion gap [Moles/Vol] 10.4 mmol/L 6.0-15.0 [facility] Sodium [Moles/volume] in Ser um or PlasmaOrdered By: Romeo Santana on 11-28-2023 Sodium [Moles/Vol] 140 mmol/L 136-145 [facility] Urea nitrogen [Mass/volume] in Serum or PlasmaOrdered By: Romeo Santana on 11-28-2023 Urea nitrogen [Mass/Vol] 7 mg/dL 7-25 [facility] WBC Auto (Bld) [#/Vol]Ordere d By: Romeo Santana on 11-28-2023 WBC (Bld) [#/Vol] 6.4 10*3/uL 3.8-11.6 [facility] Coding Summaryon 11-14-2023 Coding Summary HTMLBase 64 RqonqerlAAe3tZj+PGhlYWQ +KD7LTWGeC98rqBTslL8bR1 NMTElOSywgQVBQTElOSyIgb rMeZM4kfCMfJXNw IC8+UC8kLHPxYzxibTZbg0N 5wCM0A56yft6sKDbcpEY3PA OrOtNnlntxe4dysPz4ODljE mluOyBt LARicN83BFE9dR99Bi94mPG pbPRgx4brsSw0RuEaXZAdSR Z0wNgrHUbla2CxTPAqQ43qk DZud4U5 XFPcxDmukZDoIgRcaYJ2gK3 pIPbhjcjwr9agsaxxRvh6jc 99xNLza6T5iGF1M9GzlqL5P GJvbGQg WvwpjEDDbJ1pghhuh4vpbqg kPaToYTSkZIf5ENd5CRIqlM ucSlXwZW38YHJ2OKFhznPdM 2FsLWFs jDuhXqE5j1Z1Ir6SW0RHWhb rH6YJIHBYKLxsbCN+PC90cj 44C3SnTblhKyn3YWVuPMY2v GQ3hR4v VBDaSCdsq6V1wAP4W7ZmqiA eij1no4ifBOUuCPdrJ83ukV Ysw0S4ZYGabPR3VFNqkNjxF iBzaG93 Oyc+KIQcyAefh8FjAwayl2s te1nwhAz8ObfiLNImqjYojS qgHYF7m5DdXf6tSXPkgAF1x AI4sW3g JhQkBmP8SPtlM424RfLxkTK yDzezF13uD2DhxID+PHRyPj q4AODhpUrnZP6fQ7RgXSSnh mctbGVm fSaqGN9uKEKwtjkxWZImlG9 yHHZfN2j2QoRfGmY7UPfmS2 HbSOAxnhglQa81lB4jYiUgF cY4LWnx K1HohtL3MUMxcJOiSUrgHNL 7E95al8N9KXYmMMAvQRM0uQ K3kR4zdVfbkphdlSLdgHkzj mVydGlj IUnfEPnuC954ZKTtjOxiEbX vZGluZyBEYXRlOiAgMDcvMj kvMjAyNDwvdGQ+UAXuMSS7z WxlPSAn lLUaHTbfVj8giVextVsvTM0 uNMShyuecPKQwzS7cSDVgbS QnaHtyTF3lVGOllisze189M iAxMHB0 YOZyiUMuH1AffX1rKmQkZVN zZSZiY8ZwyBBuNUpkD161JX ptQvL2NWArfkQfG2FbAMGss WduOiB0 s0R9Rd8Gx1BdwcdqU5FadEW vCnSoYbizKWb2J1HaZbysuW I+GY93JKJxYY10GGh7XAF3f WxlPSdi JLIiI6KlpM6gDmDqHXPiEVR kOyc+PHRhYmxlIHdpZHRoPS bcPXMzHcCupNqjQJ1uAh3eZ GVyLWNv kUoedBJnWcNit7xbIPAxKPe uSF1xwYehE1BvwCS8WZXhd4 k5Im07C43uP6VffXU+PGNvb XG7eUS9 bD4pMxIfZkV1AKupI315QuW osCQgKmddw4ksh0dvxSr3In B1KTLyxjAetVgcPGT5r5YmH r05S81y IHdpZHRoPSIxNSUiIHZhbGl bgw8zhC6fVt1+XZYfxNR7wC K6wE7zSkRmAsV7TXszI154D nRvcCIv Vxaaa1jyt5yjkXy0RdCdKEI pxsKjsCjbXCX8a2ZbUg82C7 TvsLsdd3RlBlb4mf00bCQqr 1Q8nCX8 Q5KnXUJnsmrcoPCccSjgZG7 vYLMtdswwXNJwhP7mEKOpN1 y6DlDgZbR4QIfhT2CrscZ0L GJvbGQg UAXppMHMmF5lcmxdl6zajda jYsUbPOGgZFv0DJz0DCHupO qwYhZuEYO6WcO5RBB2nWNzo E0ftBhh owqfgI7gNzi+CSF3sNBikKJ IJD6gWygztDX+BOWkFPY5iS slQCjsQFFprG5eFKRhN1o5B iAwLjA1 KNdpU2QwqwD2OHKibXIvLEW bpPKZmN3blwowx8cfkgjfPz IbOUNeCCo9PCy8USHnfQvtV iBsZWZ0 ExQ6PHC3vINcgH6nxEcemzx mxC2aTyz+ObqxtPdjDKM9NR s7Q7GlEgc5GVBbxFurVJ8fk GFkZGlu Cq1rdMsnvVywAO4aUOPkank ph458NmVnd8xqSUBfhMAyAG xpJGX9M65cd2H8JBWnIMHkV KF1xBW9 uU3wyFwirpffdMHrqGnvhtF rgJstPVvrFLwlO781SLWvpU lrSqUhVDq3B7YsGss7PXMjl LokOW0o mRNtBYqdOw2mxMkwgZodMG8 lEJKckjbbc192XoMfl2clMF LvlQAoPTibLRO2W49xz9A6Q CMwMDAw LHY6oJR3dP5drIjmuhosjIE mdDsgdmVydGljYWwtYWxpZ2 65XSDvkTgrUqTdjGt9T6MdP na1QVCv eOfpBU0xcBEyGCkbKz7irVp unGjyHE0oEQYheewfn200Yk Jnj0zyUSXbxFPaEXyjQMV6S 59au1Q3 CRDsLBBbUPU1nGJ9uX9ueCd nbjogbGVmdDsgdmVydGljYW clZGtsK037EOMdlKuyVpVvm GllbnQg WPslCGp8A5PpHhpnvAK+PC9 1SFOwOM97fOSioRVvd2yhxE l1LhHeXKSnCZZ1cYunMUfug 3JkZXIt I41bzWEzb2N5BFTajRntyKH eYoQxuCV0oF0kNIzmlzhyz3 taektrRjnyo3bfau04xE21N 29sIHdp ZHRoPSIzMCUiIHZhbGlnbj0 xoL8gZo6+MSGlhYN2lSQ9wS 2pDSVoWrX2THdyQ955ZhBkr CIvPjxj f9ljv7ycpNf7QvF1EYNyybF ceVzzRWL6c5YyRp81I78lEE dpZHRoPSIyMCUiIHZhbGlnb t9aqA3e Ii8+NZRkcKV4fCP7wF5sZcE qVhF8QRdcM230DwNqiVBqRr goF90aD2GawUT+YMNoAur7B CBzdHls GL4cyWHgSWfpRp7yIBL9IaX eElYsWOdxK4GwHWVqxlavig ukmHM8UWDjKCEnvC18Gv3nb DogMTBw rEDXaM3icrfoe8lxwjofFnW iYMStFLn4SBr6XBTyeQqgBz RlEEC2PvT5IVA0nXJkwG1vn Glnbjog mS2lF4PxGLUveviqJa19wW5 xKmJgWbF0HCxySrd+TUNDQU 5OLCBIRUFUSEVSIEVMSVpBQ kVUSDwv dGQ+WPOtVIC9mBvbWRewONL wwE5gHHNeZ0y5DvTbMzY4MI bhC1MwIGWmrtjaVw20aZ8pE iAwLjA1 IGnyA0XtmiC2RGBtyDXkBUy sVAR0S96gh9W4JPBoQRDkZL M4uIH9lT2haQgradjnzKEfm DsgdmVy rSotYXwhECjuB448JZDibIq tPmSzDrM1PlU0PBF2B0FqGc j9JUTcxPwbAD6wpEMlOAtrB i6klRdb uAptKU5rYEObfqabZZVvlW1 jYQDacOYkmSkdYY1uEADjpb rzr189AgNhNAR9OLEepHEbW 3QziI2k LoXoZSXqLHKgV1NzhQUjDRr sS909NWilNnW1SCSkovPeH8 LkZEVsvRgkYuT4d5F1Qz5sC CBZZWFy czwvdGQ+PSNpPVB0hLmpWMs sNOBesP6tYJSsF7v7UkBtDk S3UWjvS9BzUXPlzytbFa76s W5eSqDp GoO1EKbvX7AddjY4MVOvxTD aYZexMAQ5V95sy4R3HWZiCX ToOEU5yHU8pB3bsVwohpsvh GVmdDsg bfPwjHsnVTicXNqrT189BRW vcDsnPkZFTUFMRTwvdGQ+PH KsHNZ8qEysHMbfTSNryY5vO MTrY8s5 RkVmRtU5TZqyD6IfKSJozgw yFd52fC0gDdSwYuW6HRkoY7 ColeF9VOTmiVBqVUifJVQ0Q 76no8E9 QOLdIUVfRSJ0dVD6yF2czRs nbjogbGVmdDsgdmVydGljYW nkJFcfA945ICJafTlgTtJqI UObIP3l eTwvdGQ+WT36ih33L4ArSrj qBgv6YNGoMNF8bOX5uG1yPM NpEGzwd0O8bEF1P5XyfzBkb v8uy6rm AHImEFzhJ06wfDSey7Q7JDZ mvNQ3BCVmyXdyKgMjpA95Kj c+IADshZxsy1ViYjycs1rbc 2teqVi9 IjLgCKQmjkEeyFkoGKH3a4Q kJr77N83oMRbcWHVgJKZqBG IlIKCduAesxo9vwC9nPr2+P GNvbCB3 dXW5jU3cZiGrPtY1YHzqQ71 3BmPdyFCvTlzpr9uoi5qqrL i4EnNaYHQobnLvsGdmETJ2s 8BvUv63 S2ApsMwdx8JoLtz3zc56oXB vs5I9lCY5C1IqNRYrfjmaxD VyaKfaSN6sJZFdzhkpNQBeg E4iAIIo B5f1SsFlWxS6LOxfQ2UwxpT 7PBBcrSKzGTAcwKCZiG3rhw xop7mmubosOvCmBXPbLQa8Z Eb8GAXj cZkuMxDnHIK1RaF8PML6gAS qvQ7uuGkywfexeL0hQvd+UG n9n5cubOEoZT0llZN6HF79J G04zLSb o4V7zYL7N2EjEUScksmvsjm pxQE7IOElPKCsaY39Rg2rmS bwOo4uTOXjODB9LOVwzIHhY 7WrlS2j AeCzVGLqMLLwP2IloMWfXDj vE405MDmhCsN1GBQfzdFmU8 McAKDshQfrFvL0o5M2Vn8CI N08NT09 RF91bIRwy8A5lTU0Y7OlYFJ gcnziwqihkFD7GWJrXJJfxZ 68Eq7vsMtaJw2uXEHfIZC2M FRpbWVz Q8NtmH0vZdLxDILpKYQbD7I duWFzNYksD711BDidHyL4IC TqjwPnH8YiJMIftPeuDtR5j 0K5Nr0P Ux82WI99SI67kSSra5E5dTL 3N0HgXOVstukwladoaDW9PX SrUAGehO69Nm9zkWwlOf3uX CAxMHB0 XZRwlPEhW0PsnA1wHqJbXES pJDQyX6NxqEMwRWmpM137YU vjSfP1CTJmdbUsA2HnLGVcx WduOiB0 d0K9Kv4SLTmkcpq6K7AdVtw vdHI+XA11YGZpLA87uWQkpO Zvt7uvkLc9YsUxXYKvIQJ1g WxlPSdi b3J (more content not included)... [facility] Coding Summary HTMLBase 64 JxygluynWOf5tUr+PGhlYWQ +NA8RWVAfP76glKJzmO2dY9 NMTElOSywgQVBQTElOSyIgb hBlQO7wiZBfIERl IC8+XD1eXHIdYmbbpUXlq4O 9aSZ7P10xqj2mHLxabKK1BO LwYtCjlzmzd6fgyIc4MVgxQ mluOyBt WOFcgH64JVX0dY48Oy01tGD ptWPes4fycBm1YlJoFMIiYA R8vMecIZqqi1LtUHCzI68iy SNqi2W9 KHVgeCxxdFEfJbKtiSY3cQ4 qSIhfkxevu3mrjskiQcr4gj 71jIBot0D0rHV8A5UxwwB8V GJvbGQg HpqogVZYdJ7qxxepk3axbqk rQpLrOYHrSCx8TQo6MONzlL iyBzCjWN48JLE2HQXbbzWbY 2FsLWFs wNynSmJ7f6Y6Fg3BE2MREqe jK0SANIEONGpdmBA+PC90cj 04R1DkDawvKsi3FEVoDGS2d AM0cH0v BWBfRKgsv2X9kVD3B8EcgoQ xgw6ue9thXZEkIAdaO76owZ Uxt2Q2KDOydGF1BHBpxDupV iBzaG93 Oyc+GUKzuImex3AtDqoqm2u lq0edlDk0NncwHFDrfzMalZ jsUSL9u7DwHc4zYTEevXX6k WQ3pI0f WaEpSaF6DXnkS136FaZbrPS nTpcpM46cH9UvuJT+PHRyPj q1TZPpxBxkVO4sU3IkDKEeu mctbGVm iHizTR4iBQIdwcgoPFZhfH7 bAYLiN1p2OaHrTiF5RPfkW8 RgAACesxfhNu08qZ3iUvZfF oT7FFys A3HhcgY6AHRbrNUcMCvpNRX 4K84mi1C4OBRlMUOeSKT7eF M3nT4kiXimtrspaQHygTrih mVydGlj PVfjMTtgB478CSUbwJtqUtH vZGluZyBEYXRlOiAgMDcvMj kvMjAyNDwvdGQ+DQFjNLZ7d WxlPSAn oDZgVTohXi8szEssfFojAL5 sTHEqgrsnXMYapL7eKDNcvE ZyqEutWW9fCVOiwuvio669E iAxMHB0 EKGynNZkE1HwmR8cJhRdCKZ rDECoR2EqbWGqYUhrZ474NA boHpM2BODqfgJoQ3FrDPZfu WduOiB0 g0Y2Nv6Bi2FzikhkU8ZcuXC lKwJgWfntINe6I4SjLopjvZ I+YJ87HQRgSW09FJj1PWH2p WxlPSdi TDYaE1PsrC5aGoSpZEMaEIG kOyc+PHRhYmxlIHdpZHRoPS odIODwCwCokNhoTP3wGp0eG GVyLWNv lSxnpILyBnVta4jtZOWtMDi aZK2bsMwzL0UzhOQ0OVFol6 g8Bb33F66jN6PymKN+PGNvb NN8bIB9 aX9uDlIyTnF3RSnfY569DbA kfAYqIeshp1poa9sxvSw0Mi A8VPHavhMygZitOMS9a6TgK w50R65r IHdpZHRoPSIxNSUiIHZhbGl dad3rgK9jXo8+VJWwnIN0dW V3zM1xHaHcJeN4QEdgY998K nRvcCIv Hclqd2ukk3bnyNv6YnGsIHM fltPczWwrWPX6d0OrHa02K8 KsjVstc7JfUtq7lp65aUKmp 5T4fOR8 U9TqGNRucdpcmFDhhOoyLA3 gIYSahgunEHAxgY9dJFGnA1 d2WbCyCvY8CQvoT1QhiyN1U GJvbGQg RXMmvLXTgU3lpnfgg3zekou zAjWeIKJpWXf8YRl4GYTxgI kmOgIoXXG0GnB0IMH3cGMcb K3akCpe rrtwcR9bPob+YLM2mWBzrHE MHX9zJloyzMR+HFUjCET6lJ ovHCueNCVwfB5dITMxZ7n8R iAwLjA1 RMdcS0CzhsM5BZIfnXOsOZF itRECoP7kezinc1slyoqhIw EcCJBkFNz0FSy3GFOcbOwrS iBsZWZ0 EnC7XTN9wLGdbC5bhTwfroo odN1aLza+GsdsrJgfXYG0VP w8L3MbNyn3OCTxtOdwLK9xs GFkZGlu Tu8lnQerpYtfLW8aTSKbzer cj549AbCym2yrHTTkuNAkQH zkXCV1P79gp0W4FKLnRPGfX WV0lTR3 wG0pvBycbdxpmSXyhPwhhrP gpKahCYusCDqwL686CIRnfA zuKcFqWOz4G9IdFur0LJOvr WaeOV2s uGFyMPzzNq4zvUgrjPftMQ3 qBFPmjnzqh207TmPoy0kxCJ OaeVVxGYypKJK2Y95yq6E9I CMwMDAw PSQ3yNW7sK8agVuleadqeRM mdDsgdmVydGljYWwtYWxpZ2 52AFLtpBoyKtAvzXd9I1ChT ap1HAOu uBnrRG1nhJAuHSmxTk3zbYi urAglJH3wYXHszkdbt816Ov Qbk2bwSXIyiXKoUKpbKSP4Q 77ol9Q5 MQYnZLVgDVJ4jGG1sT1hpUu nbjogbGVmdDsgdmVydGljYW qhDZgyX491EONqyDbuQkMnj GllbnQg AAspBPo1E5GaShlzeBH+PC9 0SVNtYP54jFWraJXod2uqwJ g7XqTrTHGhFNY0nNzkSFtjw 3JkZXIt T38snENzt5H4BJXujBarzMX vYcRkeJJ1eJ3vZMkbgegif6 izyqpbOprzo2dpnt59pC13Q 29sIHdp ZHRoPSIzMCUiIHZhbGlnbj0 zeL8sKt2+JQJvrFS4dDI6zA 4bDZQyAvT6ZCxgG710TmUdt CIvPjxj s9hst8qzuSz4SwD2FHGcilE yuUypBOG8x6TfXe15N42tIJ dpZHRoPSIyMCUiIHZhbGlnb o8zvV5r Ii8+GRJpsVC7qMY3aY1jOwY uEeT1TAxjW376IvBrpUCzVo oxX71zC3BnuSC+CPNwDbj3Z CBzdHls TW6uoFXgRObcPb1hVVU3KeG mHpWyPCplL9KmICVftquhyu lzzRN5ESNfNRIrfC62Dy0rn DogMTBw nQQHtU5gijqpk0awydhhQrD oRMTgQYn1DMw5SSYsiTgxXm RoZZX2YxZ5JXF7lJNicV4pb Glnbjog gO5fJ8ZdNHKfigxcSy05nY0 sRdIbDlP4GLenYtc+TUNDQU 5OLCBIRUFUSEVSIEVMSVpBQ kVUSDwv dGQ+TTXhWZB5yDrrIEexJNW xfU0gPBYxO0c5PhRyWgT7LL qgZ1ErPEYeyemvBg94sA4xY iAwLjA1 WQniT9QfwfV1JLMrwWYgQOd xNOP6P86eh8J2DSFyFMEoKJ G8fSI4tS4ixPaxzwflrTYnv DsgdmVy iPtsXSmpLWsuZ148MQKqaNr jCwHeZwH6LrK7UJI7F6EjVb e4TMZkdQjfWD3epYJwRXdfT p0syLmz dGteLT0tROEofnyjEESptE9 pXTNttHQdrSnsBT1zVXTrxz yib190HrNaGUW6UULddNCsM 0PvhO8n VfQjQCEnOZPcJ3ZbaKLhPSb bV388COcgLjU1TMHbzaFzK0 QwBRWljArnAuU0o9O1Ih5yB CBZZWFy czwvdGQ+JBLqEBP9jXcmOKq eOAOakT5lVHGdY8c2YpVrBp W6WYiwO1PyPENfdezeHq15x M5vByVp JiO1KKmsE4PplsK9ZLNbfWY lAAxrXGO1A45dp5N9UUPaGG MgTFD1wDE4rZ0qjSnqbtmep GVmdDsg kjPglMgyAQxcPMokN764NHE vcDsnPkZFTUFMRTwvdGQ+PH YyUBD7hGeaETavKISlzA7hN QLwR7u7 KkHuOjH0NEfaK7QmKKZcdkb qSz04mR1gGpMvLjF6JNcrB9 KbqtQ6ZXTyhHIxPRzgUBX7G 58gt9I7 URSlTKGfQON6yIY2bO3shCu nbjogbGVmdDsgdmVydGljYW bcXAcwZ031HNDmcMpyWoHoK KGbDH4w eTwvdGQ+PS03ax39C9LkTnn pBki3WDEyQAD8qJS9mD2cUH KfPEkmy6F0qEX9E3PdznSaj k2gk7xv BIGvOMcbD19vkUOws0T7WSI ajON9LMNonRqlOxSxhT02Dm c+PBKhfFuwx3BnAuryw6qvh 9bucEv7 XtCqDOQgimDxzYoiPMN5u4X rFj56H69pVQvgBKGwAMGnSH KlLUCciFqukg9pcC9rPw3+P GNvbCB3 dBJ5uT0nQkGyVmG9UPhqW19 8OxFtbRMgRwxsv9zcp9jugB a2TuAeYSPiayHxjHjwURS5v 4TxSp08 F3YbsYyiq0OzHez2jc44hWE uh6M9aZR3U1KdRETtswtixU AtpSbnWR4dPURaestwZKVkh O4gGFKa J5n9ClAiZsT6JDygU7JkxeC 3MHGrxHLuQCBjtLCUiN5ktu efq4vxdvncGgYwLCChPAt9H Ai0TBUj yUwcHsAfKKG1PsJ6BJK0sXD caR8jgCylhrhzmL5jCml+UG r2g1qynAWmVD4vkZJ8YV14M T26wUTk j8T4kXE2H5AjJYJzdmwzsll foPB8ELNoSVHviS79Vq9raQ szMy3bYHSbVJS8TYKokIVbV 6LtkI9y AeRrBYRxCHCoS8XbkINsDJn nL685GWwkSyI0TQGqvrBkU2 HcCTJukKvkAiF7y3P2Hx1JI H39TO40 MD32gDSqi8K4vCY7O1HbPNU mzrusyzviyMN3VSVdLMZrpJ 37Xp1lqMnnLz5cVDTkDWD3T FRpbWVz G8FhoC4kJzPeNWJqVWXwK5L tnWNiRDgcB764VGruNfN6HL IjzaFuW9TeIDIlkOzqUmR0g 6L5Yf0M Zv45PN32MS77pVWxd1J1hEC 7O4NdULSzvtveioccqCW6SI ArBNJldH84Th7joShvZl7sC CAxMHB0 NPNpzBNfT3ZgoC8qQdSbNWM lKWVyN7HlwYKsPDgpW612WC mpMsF4SUHtikHdC1TnDMNtz WduOiB0 p7E4Cm8ISRuefzf7H0TkQoy vdHI+YM80UTBaZF21nRMcfD Nlc7ijcWj1SaBcTMNiPGA8y WxlPSdi b3J (more content not included)... [facility] Provider Orderson 11-09-2023 Provider Orders [id number] GTIFF [facility] Chlamydia/GC Amplification L Con 11-04-2023 Chlamydia trachomatis, AC LC Negative Invalid Interpretation Code Negative [facility] Comment on above: Performed By: #### 7 [id number] #### [facility] (DEFAULT) [address] [place] [address] Neisseria gonorrhoeae, AC LC Negative Invalid Interpretation Code Negative [facility] Comment on above: Result Comment: Perf ormed At: =G [facility] [address], [place] [id number] Ivan Davila MD Ph:[phone] Performed By: #### 7 [id number] #### [facility] (DEFAULT) [address] [place] [address] Consent Formson 11-03-2023 Consent Forms [id number] [facility] ED Note-Nursingon 11-03-2023 ED Note-Nursing Fluconazole 150mg ta b called into [facility] Patient contacted and notified of the results of her culture and the prescription that was sent for her. Instructions on how to take the medication was given, patient verbalized understanding [facility] .Auto Diff 1on 11-02-2023 Auto [place] % 9 % Normal -12 [facility] Comment on above: Performed By: #### 1 [id number], 1089053, [id number] #### [facility] (DEFAULT) [address] [place] [address] Baso Abs# 0.0 x10 Normal 0.0-0.2 [facility] Comment on above: Performed By: #### 1 [id number], 0635369, 7756139 #### [facility] (DEFAULT) [address] [place] [address] Basophils/100 WBC (Bld) 0.2 % Normal 0.2-2.0 [facility] Comment on above: Performed By: #### 1 [id number], 8296185, 7531647 #### [facility] (DEFAULT) [address] [place] [address] 38180 Eos Abs# 0.3 x10 Normal 0.0-0.4 [facility] Comment on above: Performed By: #### 1 2520935, 4708114, 7117979 #### [facility] (DEFAULT) [address] [place] [address] 84457 Eosinophils/100 WBC (Bld) 9.0 % High 0.9-4.0 [facility] Comment on above: Performed By: #### 1 [id number], 5484974, 9226776 #### [facility] (DEFAULT) [address] [place] [address] 27910 Lymph Abs# 0.4 x10 Low 1.3-2.9 [facility] Comment on above: Performed By: #### 1 1603581, 2645989, 0353586 #### [facility] (DEFAULT) [address] [place] [address] Lymphocytes/100 WBC (Bld) 12 % Low 14-48 [facility] Comment on above: Performed By: #### 1 0511160, 8886211, 9931381 #### [facility] (DEFAULT) [address] [place] [address] 98370 [place] Abs# 0.3 x10 Normal 0.0-0.8 [facility] Comment on above: Performed By: #### 1 0184658, 4163153, 4084654 #### [facility] (DEFAULT) [address] [place] [address] 61275 Neut Abs# 2.4 x10 Normal 1.5-9.2 [facility] Comment on above: Performed By: #### 1 1354133, 3719422, 9702456 #### [facility] (DEFAULT) [address] [place] [address] 05898 Neutrophils/100 WBC (Bld) 70 % Normal 44-88 [facility] Comment on above: Performed By: #### 1 8234778, 5285186, 5424356 #### [facility] (DEFAULT) [address] [place] [address] 15133 C Genitalon 11-02-2023 C Genital Heavy growth of Yeas t No CARLOS performed on this organism No growth of GC at 3 days. 4+ Gram Positive Rods Few Yeast No WBC's seen. Gram Negative Diplococci not seen. Normal [facility] Comment on above: Performed By: #### 7 [id number] #### [facility] (DEFAULT) [address] [place] [address] CBC w/ Auto Diffon 4 Erythrocyte distribution width (RBC) [Ratio] 13.7 % Normal 11.5-15.0 [facility] Comment on above: Performed By: #### 1 [id number], 0314052, 2909437 #### [facility] (DEFAULT) [address] [place] [address] Hematocrit (Bld) [Volume fraction] 40.5 % High 33.7-40.4 [facility] Comment on above: Performed By: #### 1 1884336, 5610121, 1457821 #### [facility] (DEFAULT) [address] [place] [address] Hemoglobin (Bld) [Mass/Vol] 13.7 g/dL Normal 11.3-15.9 [facility] Comment on above: Performed By: #### 1 0745073, 4943994, 5855793 #### [facility] (DEFAULT) [address] [place] [address] Man Diff? Auto Invalid Interpretation Code [facility] Comment on above: Performed By: #### 1 2609508, 7329676, 9277943 #### [facility] (DEFAULT) [address] [place] [address] 13087 MCH (RBC) [Entitic mass] 29 pg Normal 24-34 [facility] Comment on above: Performed By: #### 1 9431742, 5912326, 6854216 #### [facility] (DEFAULT) [address] [place] [address] 05190 MCHC (RBC) [Mass/Vol] 34 g/dL Normal 26-37 [facility] Comment on above: Performed By: #### 1 9940832, 3943813, 3873653 #### [facility] (DEFAULT) [address] [place] [address] 18249 MCV (RBC) [Entitic vol] 85 fL Normal 81-100 [facility] Comment on above: Performed By: #### 1 3783580, 0600595, 3904087 #### [facility] (DEFAULT) [address] [place] [address] Platelet 106 x10 Low 138-427 [facility] Comment on above: Performed By: #### 1 2805864, 1918591, 4836060 #### [facility] (DEFAULT) [address] [place] [address] Platelet mean volume (Bld) [Entitic vol] 7.0 fL Normal 6.3-10.2 [facility] Comment on above: Performed By: #### 1 6268309, 8934849, 7433312 #### [facility] (DEFAULT) [address] [place] [address] RBC 4.74 x10 Normal 3.70-5.30 [facility] Comment on above: Performed By: #### 1 5962589, 6459222, 3193758 #### [facility] (DEFAULT) [address] [place] [address] WBC 3.5 x10 Normal 3.5-10.5 [facility] Comment on above: Performed By: #### 1 7076967, 8756851, 4713264 #### [facility] (DEFAULT) [address] [place] [address] Standardon 11-02-2023 eGFR Non AA >60 Invalid Interpretation Code [facility] Comment on above: Performed By: #### 1 4439084, 4664657, 8818032 #### [facility] (DEFAULT) [address] [place] [address] eGFR AA >60 Invalid Interpretation Code [facility] Comment on above: Performed By: #### 1 5580123, 7592953, 8149091 #### [facility] (DEFAULT) [address] [place] [address] Albumin [Mass/Vol] 4.1 g/dL Normal 3.5-5.0 [facility] Comment on above: Performed By: #### 1 6329756, 8978636, 2577354 #### [facility] (DEFAULT) [address] [place] [address] Albumin/Globulin [Mass ratio] 1.7 {ratio} Normal 1.4-2.6 [facility] Comment on above: Performed By: #### 1 1985891, 9758099, 3323382 #### [facility] (DEFAULT) [address] [place] [address] 76439 Alk Phos 40 IU/L Normal 32-91 [facility] Comment on above: Performed By: #### 1 2440351, 1415877, 8949225 #### [facility] (DEFAULT) [address] [place] [address] 06001 ALT [Catalytic activity/Vol] 20.0 U/L Normal 14.0-54.0 [facility] Comment on above: Performed By: #### 1 8808152, 5392056, 1336131 #### [facility] (DEFAULT) [address] [place] [address] 42862 Anion gap [Moles/Vol] 9.5 mmol/L Normal 5.0-19.0 [facility] Comment on above: Performed By: #### 1 0996006, 0572099, 2298725 #### [facility] (DEFAULT) [address] [place] [address] 86331 AST [Catalytic activity/Vol] 19 U/L Normal 15-41 [facility] Comment on above: Performed By: #### 1 2356835, 3938465, 9720478 #### [facility] (DEFAULT) [address] [place] [address] 74780 Bili Total 0.7 mg/dL Normal 0.3-1.2 [facility] Comment on above: Performed By: #### 1 3970406, 6241106, 4013339 #### [facility] (DEFAULT) [address] [place] [address] 77446 Calcium [Mass/Vol] 8.4 mg/dL Low 8.9-10.3 [facility] Comment on above: Performed By: #### 1 9247276, 2839082, 2602366 #### [facility] (DEFAULT) [address] [place] [address] 71930 Chloride [Moles/Vol] 109 mmol/L Normal 101-111 [facility] Comment on above: Performed By: #### 1 1597330, 2693384, 5842102 #### [facility] (DEFAULT) [address] [place] [address] 23839 CO2 [Moles/Vol] 21 mmol/L Normal 21-32 [facility] Comment on above: Performed By: #### 1 3635700, 6665713, 7717326 #### [facility] (DEFAULT) [address] [place] [address] 52088 Creatinine [Mass/Vol] 0.71 mg/dL Normal 0.60-1.30 [facility] Comment on above: Performed By: #### 1 3345687, 4905340, 5788281 #### [facility] (DEFAULT) [address] [place] [address] 35955 Globulin (S) [Mass/Vol] 2.4 g/dL Normal 1.5-4.3 [facility] Comment on above: Performed By: #### 1 1651954, 4370413, 5679525 #### [facility] (DEFAULT) [address] [place] [address] 05316 Glucose [Mass/Vol] 95.0 mg/dL Normal 74.0-118.0 [facility] Comment on above: Performed By: #### 1 3813626, 1307494, 2278004 #### [facility] (DEFAULT) [address] [place] [address] 48226 Osmolality 270 mOsm/L Invalid Interpretation Code [facility] Comment on above: Performed By: #### 1 3271745, 5540497, 9095702 #### [facility] (DEFAULT) [address] [place] [address] 31697 Potassium [Moles/Vol] 3.5 mmol/L Low 3.6-5.1 [facility] Comment on above: Performed By: #### 1 3412964, 5155464, 5253250 #### [facility] (DEFAULT) [address] [place] [address] 10881 Protein [Mass/Vol] 6.5 g/dL Normal 6.5-8.1 [facility] Comment on above: Performed By: #### 1 0944525, 1614678, 2026905 #### [facility] (DEFAULT) [address] [place] [address] Sodium [Moles/Vol] 136.0 mmol/L Normal 136.0-144.0 [facility] Comment on above: Performed By: #### 1 3611870, 2717095, 7068237 #### [facility] (DEFAULT) [address] [place] [address] Urea nitrogen [Mass/Vol] 7 mg/dL Low 8-26 [facility] Comment on above: Performed By: #### 1 2605415, 7189313, 1784401 #### [facility] (DEFAULT) [address] [place] [address] Urea nitrogen/Creatinine [Mass ratio] 9.8 mg/mg Normal 4.6-16.2 [facility] Comment on above: Performed By: #### 1 5742460, 5970236, 7631647 #### [facility] (DEFAULT) [address] [place] [address] CT Abdomen/Pelvis w/ Contras ton 11-02-2023 CT [...] DO 11/02/23 3:37 pm Technologist: Adama DUFFY [facility] ED Clinical Summaryon 2023 ED Clinical Summary [facility] Emergency Department [address] [place] [address] ED Clinical Summary PERSON INFORMATION Name: JAZ SANDERS Age: 28 Years Sex: FEMALE : 1995 MRN: Acct#: Visit Reason: Abdominal pain; Nausea; FLANK/HIP PAIN, FEVER Arrival: 11/02/2023 07:57:28 Discharge: 11/02/2023 13:31:00 LOS: 000 05:34 Check In: 11/02/2023 07:57:28 Checkout:11/02/2023 13:31:00 Address: [facility] [address] PCP: Amanda Ford CNP PROVIDER INFORMATION Provider [...] Follow-Up: With: Address: When: Amanda Ford CNP [address] [place] [address] [id number] Within 3 to 5 days DIAGNOSIS: 1:Hip pain Patient Understands: Yes - Patient/family/caregive r verbalizes understanding of instructions given Comment: [facility] ED Patient Summaryon 024 ED Patient Summary [facility] Emergency Department [address] [place] [id number] PATIENT DISCHARGE INSTRUCTIONS Patient Information Name: JAZ SANDERS Age: 28 Years Date of : 1995 Reason For Visit: Abdominal pain; Nausea; FLANK/HIP PAIN, FEVER Arrival Time: 11/02/2023 07:57:28 Primary Care Physician: Amanda Ford CNP Attending Physician: Narda Phillips MD Comment: Visit Diagnosis: Diagnoses This Visit Abdominal pain ([id number]) Hip pain (M25.559) Nausea ([id number] ) The Pharmacy at [facility] is open Tuesday through Tuesday from [...] alcohol and/or drug addiction problems; contact the [facility] 08/11 Crisis Hotline -text 4hope to [...] documents With: Address: When: Amanda Ford CNP [address] [place] [address] Within 3 to 5 days Medication Information: The exam and treatment you received today in the [facility] Emergency Department were for an urgent problem and are not intended as complete care. It is important for you to follow up with a doctor, nurse practitioner, or physician?s orthotics prosthetics assistant for ongoing care. If your symptoms [...] so we can reach you if necessary. [facility] Emergency Department has provided you with a complete list of medications post discharge. Please inform your freight trucker/provider of your visit and for further instruction on these medications. Any specific questions regarding your chronic medications and dosages should be discussed with your primary care physician(s) and/or pharmacist. New Medications [facility] [id number], [address], [place] [id number], [phone] cyclobenzaprine (cyclobenzaprine 10 mg oral tablet) 1 [...] 0. lidocaine topic (more content not included)... [facility] Extra Greenon 11-02-2023 Tube Collected Yes Invalid Interpretation Code [facility] Comment on above: Performed By: #### 1 [id number] #### [facility] (DEFAULT) [address] [place] [address] Test Urine U Preg Negative [facility] Comment on above: Performed By: #### 7 [id number] #### [facility] (DEFAULT) [address] [place] [address] U Preg Internal Control Pass [facility] Comment on above: Performed By: #### 7 [id number] #### [facility] (DEFAULT) [address] [place] [address] UA Wfmpq9ty 11-02-2023 UA Bacteria Trace [facility] Comment on above: Order Comment: Urina lysis Microscopic order added on by [employer] Expert Rules system. Performed By: #### 7 [id number] #### [facility] (DEFAULT) [address] [place] [address] UA Mucous 1+ [facility] Comment on above: Order Comment: Urina lysis Microscopic order added on by [employer] Rules system. Performed By: #### 7 [id number] #### [facility] (DEFAULT) [address] [place] [address] UA RBC None Seen [facility] Comment on above: Order Comment: Urina lysis Microscopic order added on by [employer] Expert Rules system. Performed By: #### 7 [id number] #### [facility] (DEFAULT) [address] [place] [address] UA Squam Epi Few [facility] Comment on above: Order Comment: Urina lysis Microscopic order added on by [employer] Expert Rules system. Performed By: #### 7 [id number] #### [facility] (DEFAULT) [address] [place] [address] UA WBC None Seen [facility] Comment on above: Order Comment: Urina lysis Microscopic order added on by [employer] Rules system. Performed By: #### 7 [id number] #### [facility] (DEFAULT) [address] [place] [address] UA w Culture if Ind Standard on 11-02-2023 Breakpoint UA Normal [facility] Comment on above: Performed By: #### 7 [id number] #### [facility] (DEFAULT) [address] [place] [address] Color (U) Dark Yellow [facility] Comment on above: Performed By: #### 7 [id number] #### [facility] (DEFAULT) [address] [place] [address] Culture? Not Indicated Invalid Interpretation Code [facility] Comment on above: Result Comment: Resu lt created by rule GL_MAGR_ADD_UA_CULT Performed By: #### 7 [id number] #### [facility] (DEFAULT) [address] [place] [address] Glucose (U) [Mass/Vol] Negative [facility] Comment on above: Performed By: #### 7 [id number] #### [facility] (DEFAULT) [address] [place] [address] Ketones Ql (U) TRACE [facility] Comment on above: Performed By: #### 7 [id number] #### [facility] (DEFAULT) [address] [place] [address] Micro? Indicated Invalid Interpretation Code [facility] Comment on above: Result Comment: Resu lt created by rule GL_MAGR_ADD_UA_MICRO Performed By: #### 7 [id number] #### [facility] (DEFAULT) [address] [place] [address] UA Bilirubin MODERATE Abnormal [facility] Comment on above: Performed By: #### 7 [id number] #### [facility] (DEFAULT) [address] [place] [address] UA Blood Negative Normal NEGATIVE [facility] Comment on above: Performed By: #### 7 [id number] #### [facility] (DEFAULT) [address] [place] [address] UA Clarity SL CLOUDY Abnormal CLEAR [facility] Comment on above: Performed By: #### 7 [id number] #### [facility] (DEFAULT) [address] [place] [address] UA Leuk Est Negative Normal NEGATIVE [facility] Comment on above: Performed By: #### 7 [id number] #### [facility] (DEFAULT) [address] [place] [address] UA Nitrite Negative Normal NEGATIVE [facility] Comment on above: Performed By: #### 7 [id number] #### [facility] (DEFAULT) [address] [place] [address] UA pH 6.0 Normal 5-8 [facility] Comment on above: Performed By: #### 7 [id number] #### [facility] (DEFAULT) [address] [place] [address] UA Protein 30 Abnormal NEGATIVE [facility] Comment on above: Performed By: #### 7 [id number] #### [facility] (DEFAULT) [address] [place] [address] UA Spec Grav >=1.030 Normal 1.001-1.035 [facility] Comment on above: Performed By: #### 7 [id number] #### [facility] (DEFAULT) [address] [place] [address] UA Urobilinogen 1.0 mg/dL Normal 0.2-1.0 [facility] Comment on above: Performed By: #### 7 [id number] #### [facility] (DEFAULT) [address] [place] [address] Urine Source Clean Catch [facility] Comment on above: Performed By: #### 7 [id number] #### [facility] (DEFAULT) [address] [place] [address] Wet Mount.on 11-02-2023 Wet Mount. Negative Normal [facility] Comment on above: Performed By: #### 7 [id number] #### [facility] (DEFAULT) [address] [place] [address] Coding Summaryon 10-26-2023 Coding Summary HTMLBase 64 ReawwaaoFYa4mIq+PGhlYWQ +VF0FPDAgY02ibCDvdY8oL2 NMTElOSywgQVBQTElOSyIgb lKpSO9lbDAmFGQo IC8+WJ0oSIFvPxwqsMSzr0W 6mJI8U19szy2mIGosoIS5UN XbXeNlqfgpm2hnjPg2CDqyH mluOyBt DXOnqC85EIU4vU18Or43wPK xmXHcp6mdtMf9OwYiDUAiOV S8nOzjEZhgt7NcIWZsY53go IExm9Q7 ETYdmBcvuFMfUoLjuRE0cE5 cMSpydtkix0nvlpefPdd7ar 86nGAlg4N9eEE4J1LzlwB1W GJvbGQg CeondMSXcD7dxopyy3tzxuh aCdIeKSBdZXl1YVy2MWXvpM zdAaOlCE64MEZ2LSIxppXtZ 2FsLWFs mPvgToA6v3I6Oy7EX6XMTis sM6AWQZFSYPsayKW+PC90cj 43K3ErDchwVwh8TLNeOJS4j NN1wD4i MYEdNZqzd3F4iDR6C0KlyvF kqx2ar3tlWTKeTJgtG76niH Rgx8Q5GNNtlOH8EKIkoWhbJ iBzaG93 Oyc+DOTelErwd8NvGwisq2y ig7cadWx4KeluOJHikePzvK qkBUN2h3QcJh2mGQNaqLM2i QY9iZ5l GlEtXaU8TGtnW443AkArwBT bAacpR28sG4QffAT+PHRyPj r9DUVbuBosKI7aN0MvZRBlu mctbGVm lNinWB6cKNEszszdLXGtgO6 lKJDdL5g4VrBmHzY6PCndK2 ArFDXibjnqGb22fV5sDqDbH lD8YHrm U3DnywE1SCHipHZeUKcmADG 5Q43ia0Q8WWKyLSXgGXF4fM B7xX7emRfiinxngRLtiTmom mVydGlj QZawDBkyS819YDUicEwqNoB vZGluZyBEYXRlOiAgMDcvMT AvMjAyNDwvdGQ+SVNdRGZ7a WxlPSAn jTVuYOcnLg5coJomuWaeFP1 jYLOzxczuEJMbsG6uVUHewZ SjzVvjSI9xSVGgnbsjn134I iAxMHB0 TJRlwISsO3DyrW8eQwZySGF cFNObV7SoaKNhGRqyW114KU idTrX2FUTvldKxC9UiZMXif WduOiB0 t7H7Rh3Yk4IxfonjH8PovBS fLqMnKoipVPy1P8JuDaqtiW I+MU29HJKcME47QLz0WWH1w WxlPSdi KGVpH4OraZ5dHwRxBYLvWFI kOyc+PHRhYmxlIHdpZHRoPS cbRQXgTiCpoBitHS7gUh3eH GVyLWNv mIdcdVFhScDyg2zjRHQzVFa lSU2qwBiyT7QwbDW9ZSBbw5 s6Zu85W36xO8AkyOF+PGNvb XB8cRC1 yF5lYaHhKiA1WHymY519YeN yaOLpGmqmh8aul5dciDj4Zd P6BPEuibFviYqkANJ5o4IbE h07K44x IHdpZHRoPSIxNSUiIHZhbGl cql6trE3qXm3+CFJbtNV5yL O6fB3vJzRsTxL7EXycQ070Z nRvcCIv Ezdgr8ccw6udoVt8IzFpWTL njaKqgQmcGCR2u5GaNe30W6 BxfXxac0RnUtu1rn49uRGbd 2H4mGQ2 Q6KoEYJookyvsIUslSttJR3 mONKyfmlcZRYbrM9rAWDxF5 y8IyRgOvQ5YIpgS1JzxsM5S GJvbGQg AGEiiSZKxR5uwgnjt4adrpu sFhDiUFSvOVr2VMy8JTXfvY xyAbUaXQM4EnH4TQX4sNLju U8cuIdw llhgzE2eZen+TET2xWNqmCK LXJ5mMmujqJW+XVBvOHA6rD roKLpbMDVafQ5iHUBjR5h2T iAwLjA1 UCiaE9ZvxbU6RUUmtILcQJY vmXAScV2bmxiub9prlqtvDx VrITRpWDd5LLr5YDDdcNbcR iBsZWZ0 KgS1GMD7qBMukE7beGgihau qbN9fIcg+JtwhcPskHDN3IB l1Y4DzBcn3JMPmnGrjHN1bz GFkZGlu An8qdXmpjArgMM7mWZQwrzt ty395KlHja1fvLKLkbQKjQM veKCM0P54ak1X5NNHqSDZhG ZN0oUU2 sY4guRmefpkmoXFhoRccfqS nyIdtULfsLAklM236WWEmbO aiSdDkIJk3P0QkHng3NASku LabVE5o sBKeJAufVh3seDaynUrdBR5 gLHJgjfwul365VvAof0rrZA FawJEjGTztWZB2V06as5P7Z CMwMDAw UGO0lGN9wT9jdPfmlyinwHA mdDsgdmVydGljYWwtYWxpZ2 89BBCmkIzrMnSjxBt4R2OwS ll5EFSa eVamHS2kvCRoGNskYg5tqCx sqTsjDI2kQJWpyalrv006Rn Scm5doDPGhfGFbVGklWIM6J 31wn3I3 BFLcYFUgGUH2uOU7oK9zhVq nbjogbGVmdDsgdmVydGljYW toUZeoB286FNDyyWruDvEhb GllbnQg JLyfIXb0S4DvFtbczFV+PC9 5NGTbCC22hQQhcHKnz8xapI g6MjFgULHfHRH2oRhpGHste 3JkZXIt C62npHJrm9J0PYMjzGwkqZS xIxPpkDU1cG6cMKwzjyhvn6 uilkxwGnacd8krti01mA03T 29sIHdp ZHRoPSIzMCUiIHZhbGlnbj0 lkZ8eDc6+ULKyiEU8pNI8uY 2gHSFxXqK8XUicX853CbIbc CIvPjxj s7beg7vzmIj6HuR5HBFtcpL elQqmHJR0k9WoVd82Y33fBY dpZHRoPSIyMCUiIHZhbGlnb t8uwW7a Ii8+OWOwrCG5uJF8xS2eUxW oKjW5TNxoQ512FaMtoFNlPg deR99bF1McpPA+KMBsDkm9P CBzdHls CF6vfDElIOliGc2sVUX9OqM bLoGcMJhuN1KvOJIqfandkj rwuUM2NLTwCUPugH59Mq8dp DogMTBw tZAXkH5kmlbri5qjwqllUlT cFVBcPYi7VGu4EPJxsYtfEe XjPJJ5VtB9ZTQ8zISaaU3nc Glnbjog aS8hV8BcMDRtmhznEr72nK2 aKcBuJoS5NAmaDbg+TUNDQU 5OLCBIRUFUSEVSIEVMSVpBQ kVUSDwv dGQ+TCYnJNJ1xHniVTekTOG nyX5sWFKwQ9m4BdYcZoM4VB wlU2CfFLSfsaskRi44vJ5aE iAwLjA1 XUykG0BtfwS1WRHncSDjHPk yGTS8X00du5C4WOEeJJQmFO J5iHD1sN8zrIrqlvtnbAOcs DsgdmVy kJcoQTvdVWheM982VZTyuAw fWoBzAjA3WtL8NQB1C3UqDg n5SSZpqKkaMV7mtFXuTXnwX c1cuOmf zFyaYI0wYXFxryegWZVjvJ4 fFWHxhATvhWleQW0iJEYmkl wgb358TpKyJPD8QAWkmVNlA 0CmfT7h CaNgDGJiILZwQ1LsuZKfFTv sY171YGnlBzL9SKMtuaUyY1 JlTZYvtHqhKpP2p9A3Jd1sQ CBZZWFy czwvdGQ+OWTbNQU0pIabHEl mJYVxwR2tJOIxD1g8OvJjGx R6IIgpE2OxRQDzalraVq75q C8aIdBc EjH6FJwbE1GtkpJ0RIYcyCV aAWdoNTX8F46ci4D1JCUnSP EpOYC3qXY4cJ2baMhfdwved GVmdDsg vjFtiQdoORbgKNqyJ687FPE vcDsnPkZFTUFMRTwvdGQ+PH AbKJS9kFitEXjzMYGcvZ1lH OJzD8n9 EeBbIbB0SWxrM4XyAPDhyka cWn34nF3zEdPnSaL8PGexV6 KomjR6MKIspRDaUCeeZWI4O 15jg4G3 LMZrLBXyRWS1nAD7rA0rlQm nbjogbGVmdDsgdmVydGljYW dxEPdoY545NLXmwHaaZpRbS 3Vycmlu BjEZsXKpQXUoRE06FD97HA1 7V1CcWfikwDHwtXT+PHRhYm xlIHdpZHRoPScxMDAlJyBzd KgxAM9c Js0uIVLvEFZgtBzjaUJuFmI qp0irZFLuTAalBL3ceLesO9 AyvEC8DTBio9o4Sb87N25aN 3JvdXA+ LFBbfPN9rOP1tW3gUiTpEaN 2QFleW220CfQsmCZeSguqv2 eel0fpfMr1AzHbAIOwxxJvt WduPSJ0 v8UuXv23I97oSKrpORFvUSD zIWDvZVTvpLoevb0naL6xAz 8+HFHfyCF7oYD0yZ4lBmTdT mG9RYqw Q222MuDscRZwEwscU86nF2V vdXA+QDJeNfy7EHRiiWovTG 6yrMKcAYsmAl5oNGX0TgNvA jIwMGlu G0CaEPFezapkavpbhEL0CEO aRHHxnH19He2mdQxoZi9yCS BvCHA2JULqwGHgE9CojW0vS iAjMDAw YQGfR3NtwBGvZXewT567ASh uWjT5TGIdruOlX9RlRRJxrF zcQhT9a1I2Dt9RhAivySHhV U8qOhHy KQe2A0EoFev7JKCigItyRN7 mzJBqQQqyZf4mcSmiyEpjJM 8zLJZcnmtix831FxIki9fhW DEwcHQg WZkbRHA3G50gr5V7KCMfAGG mJRO7uVC6eF6xxSvwkpeewJ VmdDsgdmVydGljYWwtYWxpZ 246IHRv hNnkAsXGQgr7Q9OdYqd1YRI hjHkbMV8flULuLUmnXy2mvA vgrRlgUO1uAFTxtmeag919R fYwv3yv PTNrpDBsWWqhHAZ0X98qa3I 6NJKaWQJwYSP8vQV9vS9nnB lnbjogbGVmdDsgdmVydGljY WwtYWxp P455KSAckUcwXz1ZVgy1T5Y dWvb6ESUicWqxXV7okVRkTR bnTi3fnFllbXdaHE4lMWSjo dhwq677 GrPdk4dyVUPrrASdPGrpZXB 8S69uz1L7MYLkSGZqRLK2lH D8nC6jhAmijjnenIJtvHvns mVydGlj QCzgLOugR103NPMrjAqcCfM heWVyOjwvdGQ+UW74tq12O0 IrFchhOjl3PMHjPDD5fWG6t V1dGQXr [facility] (more content not included)... Normal [facility] Basophils Auto (Bld) [#/Vol] on 09-15-2023 Basophils (Bld) [#/Vol] 0.0 x10 0.0-0.2 [facility] Basophils/100 WBC Auto (Bld) on 09-15-2023 Basophils/100 WBC (Bld) 0.3 % 0.2-2.0 [facility] Eosinophils/100 WBC Auto (Bl d)on 09-15-2023 Eosinophils/100 WBC (Bld) 2.7 % 0.9-4.0 [facility] Erythrocyte distribution wid th Auto (RBC) [Ratio]on 09-15-2023 Erythrocyte distribution width (RBC) [Ratio] 14.1 % 11.5-15.0 [facility] Hematocrit Auto (Bld) [Volum e fraction]on 09-15-2023 Hematocrit (Bld) [Volume fraction] 41.4 % High 33.7-40.4 [facility] Hemoglobin [Mass/volume] in Bloodon 09-15-2023 Hemoglobin (Bld) [Mass/Vol] 14.0 g/dL 11.3-15.9 [facility] Iron binding capacity [Mass/ volume] in Serum or Plasmaon 09-15-2023 Iron binding capacity [Mass/Vol] 405 mcg/dL High 250-400 [facility] Iron saturation [Mass Fracti on] in Serum or Plasmaon 09-15-2023 Iron saturation [Mass fraction] 12 % Low 20-55 [facility] Laboratory - Chemistry and C hemistry - challengeon 09-15-2023 Iron [Mass/Vol] 48.0 ug/dL 28.0-170.0 [facility] Transferrin [Mass/Vol] 289.2 mg/dL 192.0-382.0 [facility] Leukocytes [#/volume] correc terry for nucleated erythrocytes in Blood by Automated counon 09-15-2023 WBC corrected for nucl RBC Auto (Bld) [#/Vol] 6.4 x10 3.5-10.5 [facility] Lymphocytes Auto (Bld) [#/Vo l]on 09-15-2023 Lymphocytes (Bld) [#/Vol] 2.2 x10 1.3-2.9 [facility] Lymphocytes/100 WBC Auto (Bl d)on 09-15-2023 Lymphocytes/100 WBC (Bld) 34 % 14-48 [facility] MCH Auto (RBC) [Entitic mass ]on 09-15-2023 MCH (RBC) [Entitic mass] 29 pg 24-34 [facility] MCHC Auto (RBC) [Mass/Vol]on 09-15-2023 MCHC (RBC) [Mass/Vol] 34 g/dL 26-37 [facility] MCV Auto (RBC) [Entitic vol] on 09-15-2023 MCV (RBC) [Entitic vol] 87 fL 81-100 [facility] Monocytes Auto (Bld) [#/Vol] on 09-15-2023 Monocytes (Bld) [#/Vol] 0.4 x10 0.0-0.8 [facility] Monocytes/100 WBC Auto (Bld) on 09-15-2023 Monocytes/100 WBC (Bld) 6 % 1-12 [facility] Neutrophils Auto (Bld) [#/Vo l]on 09-15-2023 Neutrophils (Bld) [#/Vol] 3.7 x10 1.5-9.2 [facility] Neutrophils/100 WBC Auto (Bl d)on 09-15-2023 Neutrophils/100 WBC (Bld) 57 % 44-88 [facility] No Panel Informationon 09-14 Add Manual Differential Auto Auto [facility] Eosinophils # (Auto) 0.2 x10 0.0-0.4 [facility] Platelet mean volume Auto (B ld) [Entitic vol]on 09-15-2023 Platelet mean volume (Bld) [Entitic vol] 6.7 fL 6.3-10.2 [facility] Platelets Auto (Bld) [#/Vol] on 09-15-2023 Platelets (Bld) [#/Vol] 179 x10 138-427 [facility] RBC Auto (Bld) [#/Vol]on RBC (Bld) [#/Vol] 4.76 x10 3.70-5.30 [facility] Follitropin [Units/volume] i n Serum or PlasmaOrdered By: LEOBARDO BARROSO on 06-23-2022 Follitropin Qn 6.2 m[IU]/mL [facility] Comment on above: FEMALE NORMALS (DELROY ENOPAUSE) MID-FOLLICULAR PHASE: 3.9-8.8 mIU/mL MID-CYCLE PEAK: 4.5-22.5 mIU/mL MID-LUTEAL PHASE: 1.8-5.1 mIU/mLFEMALE NORMALS (POSTMENOPAUSE): 16.7-113.6 mIU/mLMALE NORMALS: 1.3-19.3 mIU/mL Prolactin [Mass/volume] in S betty or PlasmaOrdered By: LEOBARDO BARROSO on 06-23-2022 Prolactin [Mass/Vol] 7.58 ng/mL 3.34-26.[address] [facility] CT biopsyOrdered By: Lisha Ford on 06-16-2022 Transferrin [Mass/Vol] 393 mg/dL 180-380 [facility] Iron [Mass/volume] in Serum or PlasmaOrdered By: Amanda Ford on 06-16-2022 Iron [Mass/Vol] 34 ug/dL 40-150 [facility] Iron binding capacity [Mass/ volume] in Serum or PlasmaOrdered By: Amanda Ford on 06-16-2022 Iron binding capacity [Mass/Vol] 550 ug/dL 255-450 [facility] Iron saturation [Mass Fracti on] in Serum or PlasmaOrdered By: Amanda Ford on 06-16-2022 Iron saturation [Mass fraction] 6.2 % 20-50 [facility] Anisocytosis LM Ql (Bld)Orde red By: Farhad Lashonda on 06-11-2022 Anisocytosis Ql (Bld) Marked [facility] Basophils Auto (Bld) [#/Vol] Ordered By: Farhad Lashonda on 06-11-2022 Basophils (Bld) [#/Vol] N/A [facility] Basophils/100 WBC Auto (Bld) Ordered By: Farhad Lashonda on 06-11-2022 Basophils/100 WBC (Bld) N/A [facility] Basophils/100 WBC Manual cnt (Bld)Ordered By: Farhad Lashonda on 06-11-2022 Basophils/100 WBC (Bld) 1 % 0-2 [facility] Eosinophils Auto (Bld) [#/Vo l]Ordered By: Farhad Lashonda on 06-11-2022 Eosinophils (Bld) [#/Vol] N/A [facility] Eosinophils/100 WBC Auto (Bl d)Ordered By: Farhad Lashonda on 06-11-2022 Eosinophils/100 WBC (Bld) N/A [facility] Eosinophils/100 WBC Manual c nt (Bld)Ordered By: Farhad Lashonda on 06-11-2022 Eosinophils/100 WBC (Bld) 7 % 1-3 [facility] Erythrocyte distribution wid th Auto (RBC) [Ratio]Ordered By: Farhad Lashonda on 06-11-2022 Erythrocyte distribution width (RBC) [Ratio] 26.1 % 11.9-15.3 [facility] Hematocrit Auto (Bld) [Volum e fraction]Ordered By: Farhad Lashonda on 06-11-2022 Hematocrit (Bld) [Volume fraction] 25.7 % 34.0-46.4 [facility] Hemoglobin [Mass/volume] in BloodOrdered By: Farhad Lashonda on 06-11-2022 Hemoglobin (Bld) [Mass/Vol] 8.0 g/dL 11.8-15.4 [facility] Hypochromia LM Ql (Bld)Order ed By: Farhad Lashonda on 06-11-2022 Hypochromia Ql (Bld) Moderate [facility] Leukocytes [#/volume] correc terry for nucleated erythrocytes in Blood by Automated counOrdered By: Farhad Lashonda on 06-11-2022 WBC corrected for nucl RBC Auto (Bld) [#/Vol] 5.0 10*3/uL 3.8-11.6 [facility] Lymphocytes Auto (Bld) [#/Vo l]Ordered By: Farhad Lashonda on 06-11-2022 Lymphocytes (Bld) [#/Vol] N/A [facility] Lymphocytes/100 WBC Auto (Bl d)Ordered By: Farhad Lashonda on 06-11-2022 Lymphocytes/100 WBC (Bld) N/A [facility] Lymphocytes/100 WBC Manual c nt (Bld)Ordered By: Farhad Lashonda on 06-11-2022 Lymphocytes/100 WBC (Bld) 56 % 18-42 [facility] MCH Auto (RBC) [Entitic mass ]Ordered By: Farhad Lashonda on 06-11-2022 MCH (RBC) [Entitic mass] 21.1 pg 24.7-34.3 [facility] MCHC Auto (RBC) [Mass/Vol]Or dered By: Farhad Lashonda on 06-11-2022 MCHC (RBC) [Mass/Vol] 31.2 g/dL 32.0-35.0 [facility] MCV Auto (RBC) [Entitic vol] Ordered By: Farhad Lashonda on 06-11-2022 MCV (RBC) [Entitic vol] 67.6 fL 80-100 [facility] Microcytes LM Ql (Bld)Ordere d By: Farhad Lashonda on 06-11-2022 Microcytes Ql (Bld) Marked [facility] Monocytes Auto (Bld) [#/Vol] Ordered By: Farhad Lashonda on 06-11-2022 Monocytes (Bld) [#/Vol] N/A [facility] Monocytes/100 WBC Auto (Bld) Ordered By: Farhad Lashonda on 06-11-2022 Monocytes/100 WBC (Bld) N/A [facility] Monocytes/100 WBC Manual cnt (Bld)Ordered By: Farhad Lashonda on 06-11-2022 Monocytes/100 WBC (Bld) 5 % 2-11 [facility] Neutrophils Auto (Bld) [#/Vo l]Ordered By: Farhad Lashonda on 06-11-2022 Neutrophils (Bld) [#/Vol] N/A [facility] Neutrophils/100 WBC Auto (Bl d)Ordered By: Farhad Lashonda on 06-11-2022 Neutrophils/100 WBC (Bld) N/A [facility] Nucleated erythrocytes [Pres ence] in Blood by Automated countOrdered By: Farhad Lashonda on 06-11-2022 Nucleated RBC Auto Ql (Bld) N/A [facility] Platelet adequacy [Presence] in Blood by Light microscopyOrdered By: Farhad Lashonda on 06-11-2022 Platelets LM Ql (Bld) Normal Normal [facility] Platelet mean volume Auto (B ld) [Entitic vol]Ordered By: Farhad Lashonda on 06-11-2022 Platelet mean volume (Bld) [Entitic vol] 8.2 fL 6.3-10.7 [facility] Platelet morphology finding [Identifier] in BloodOrdered By: Farhad Lashonda on 06-11-2022 Platelet morphology finding Nom (Bld) Normal Normal [facility] Platelets Auto (Bld) [#/Vol] Ordered By: Farhad Lashonda on 06-11-2022 Platelets (Bld) [#/Vol] 165 10*3/uL 150-450 [facility] Polychromasia [Presence] in Blood by Light microscopyOrdered By: Farhad Lashonda on 06-11-2022 Polychromasia LM Ql (Bld) Marked [facility] RBC Auto (Bld) [#/Vol]Ordere d By: Farhad Lashonda on 06-11-2022 RBC (Bld) [#/Vol] 3.80 10*6/uL 3.60-5.00 [facility] RBC morphologyOrdered By: Jenny oMerchant on 06-11-2022 RBC morphology finding Nom (Bld) N/A [facility] Segmented neutrophils/100 WB C Manual cnt (Bld)Ordered By: Farhad Lashonda on 06-11-2022 Segmented neutrophils/100 WBC (Bld) 32 % 50-70 [facility] WBC Auto (Bld) [#/Vol]Ordere d By: Farhad Lashonda on 06-11-2022 WBC (Bld) [#/Vol] 5.0 10*3/uL 3.8-11.6 [facility] Activated partial thrombopla stin time (aPTT) in platelet poor plasma by coagulation aOrdered By: Jean Jett on 06-10-2022 aPTT Coag (PPP) [Time] 29.8 s 25.1-36.5 [facility] Anisocytosis LM Ql (Bld)Orde red By: Jean Jett on 06-10-2022 Anisocytosis Ql (Bld) Marked [facility] Basophils Auto (Bld) [#/Vol] Ordered By: Jean Jett on 06-10-2022 Basophils (Bld) [#/Vol] 0.1 10*3/uL 0.0-0.2 [facility] Basophils/100 WBC Auto (Bld) Ordered By: Jean Jett on 06-10-2022 Basophils/100 WBC (Bld) 1.8 % . [facility] Bilirubin Test strip Ql (U)O rdered By: Jean Jett on 06-10-2022 Bilirubin Ql (U) Negative Negative [facility] CT biopsyOrdered By: Jean Jett on 06-10-2022 Transferrin [Mass/Vol] 380 mg/dL 180-380 [facility] Calcium [Mass/volume] in Ser um or PlasmaOrdered By: Jean Jett on 06-10-2022 Calcium [Mass/Vol] 8.6 mg/dL 8.2-10.2 [facility] Carbon dioxide, total [Moles /volume] in Serum or PlasmaOrdered By: Jean Jett on 06-10-2022 CO2 [Moles/Vol] 23.3 mmol/L 22.0-30.0 [facility] Chloride [Moles/volume] in S betty or PlasmaOrdered By: Jean Jett on 06-10-2022 Chloride [Moles/Vol] 106 mmol/L 95-114 [facility] Color Auto (U)Ordered By: Luis Fernando Jett on 06-10-2022 Color (U) Yellow Yellow [facility] Creatine kinase [Enzymatic a ctivity/volume] in Serum or PlasmaOrdered By: Jean Jett on 06-10-2022 CK [Catalytic activity/Vol] 100 U/L [facility] Creatinine and Glomerular fi ltration rate.predicted panel (S/P/Bld)Ordered By: Jean Jett on 06-10-2022 Creatinine [Mass/Vol] 0.71 mg/dL 0.44-1.03 [facility] Eosinophils Auto (Bld) [#/Vo l]Ordered By: Jean Jett on 06-10-2022 Eosinophils (Bld) [#/Vol] 0.3 10*3/uL 0.0-0.45 [facility] Eosinophils/100 WBC Auto (Bl d)Ordered By: Jean Jett on 06-10-2022 Eosinophils/100 WBC (Bld) 5.0 % . [facility] Erythrocyte distribution wid th Auto (RBC) [Ratio]Ordered By: Jean Jett on 06-10-2022 Erythrocyte distribution width (RBC) [Ratio] 24.6 % 11.9-15.3 [facility] Estimated glomerular filtrat ion rate (GFR) non- AmericanOrdered By: Jean Jett on 06-10-2022 GFR/1.73 sq M.predicted among non-blacks MDRD (S/P/Bld) [Vol rate/Area] > 60 mL/Min [facility] Fecal occult blood detection by immunochemistryOrdered By: Jean Jett on 06-10-2022 Hemoglobin.gastrointes tinal Ql (Stl) [facility] Glucose [Mass/volume] in Ser um or PlasmaOrdered By: Jean Jett on 06-10-2022 Glucose [Mass/Vol] 94 mg/dL 70-100 [facility] Comment on above: ADA recommended refe rence rangeRandom Glucose Reference Range is dependent on time and content of last meal. Glucose of more than 200 mg/dL in a nonstressed, ambulatory subject supports the diagnosis of Diabetes Mellitus. HCG ( test) IA.rapi d Ql (U)Ordered By: Jean Jett on 06-10-2022 HCG ( test) Ql (U) Negative [facility] Hematocrit Auto (Bld) [Volum e fraction]Ordered By: Jean Jett on 06-10-2022 Hematocrit (Bld) [Volume fraction] 23.8 % 34.0-46.4 [facility] Hemoglobin [Mass/volume] in BloodOrdered By: Jean Jett on 06-10-2022 Hemoglobin (Bld) [Mass/Vol] 7.3 g/dL 11.8-15.4 [facility] Hypochromia LM Ql (Bld)Order ed By: Jean Jett on 06-10-2022 Hypochromia Ql (Bld) Marked [facility] Iron [Mass/volume] in Serum or PlasmaOrdered By: Jean Jett on 06-10-2022 Iron [Mass/Vol] 25 ug/dL 40-150 [facility] Iron binding capacity [Mass/ volume] in Serum or PlasmaOrdered By: Jean Jett on 06-10-2022 Iron binding capacity [Mass/Vol] 532 ug/dL 255-450 [facility] Iron saturation [Mass Fracti on] in Serum or PlasmaOrdered By: Jean Jett on 06-10-2022 Iron saturation [Mass fraction] 4.7 % 20-50 [facility] Ketones Auto test strip (U) [Mass/Vol]Ordered By: Jean Jett on 06-10-2022 Ketones (U) [Mass/Vol] Negative Negative [facility] Laboratory - Chemistry and C hemistry - challengeOrdered By: Jean Jett on 06-10-2022 Magnesium [Mass/Vol] 1.9 mg/dL 1.6-2.6 [facility] Natriuretic peptide B (Bld) [Mass/Vol] 23.0 pg/mL 5-100 [facility] Laboratory - CoagulationOrde red By: Jean Jett on 06-10-2022 PT Coag (PPP) [Time] 12.9 s 9.0-12.9 [facility] Leukocytes [#/volume] correc terry for nucleated erythrocytes in Blood by Automated counOrdered By: Jean Jett on 06-10-2022 WBC corrected for nucl RBC Auto (Bld) [#/Vol] 5.3 10*3/uL 3.8-11.6 [facility] Lymphocytes Auto (Bld) [#/Vo l]Ordered By: Jean Jett on 06-10-2022 Lymphocytes (Bld) [#/Vol] 2.2 10*3/uL 1.00-4.8 [facility] Lymphocytes/100 WBC Auto (Bl d)Ordered By: Jean Jett on 06-10-2022 Lymphocytes/100 WBC (Bld) 41.3 % . [facility] MCH Auto (RBC) [Entitic mass ]Ordered By: Jean Jett on 06-10-2022 MCH (RBC) [Entitic mass] 19.7 pg 24.7-34.3 [facility] MCHC Auto (RBC) [Mass/Vol]Or dered By: Jean Jett on 06-10-2022 MCHC (RBC) [Mass/Vol] 30.6 g/dL 32.0-35.0 [facility] MCV Auto (RBC) [Entitic vol] Ordered By: Jean Jett on 06-10-2022 MCV (RBC) [Entitic vol] 64.5 fL 80-100 [facility] Microcytes LM Ql (Bld)Ordere d By: Jean Jett on 06-10-2022 Microcytes Ql (Bld) Marked [facility] Monocyte distribution width [Entitic volume] in Blood by AutomatedOrdered By: Jean Jett on 06-10-2022 Monocyte distribution width Auto (Bld) [Entitic vol] 17.54 % 0.00-20.00 [facility] Monocytes Auto (Bld) [#/Vol] Ordered By: Jean Jett on 06-10-2022 Monocytes (Bld) [#/Vol] 0.4 10*3/uL 0.0-0.8 [facility] Monocytes/100 WBC Auto (Bld) Ordered By: Jean Jett on 06-10-2022 Monocytes/100 WBC (Bld) 6.8 % . [facility] Neutrophils Auto (Bld) [#/Vo l]Ordered By: Jean Jett on 06-10-2022 Neutrophils (Bld) [#/Vol] 2.4 10*3/uL 1.8-7.7 [facility] Neutrophils/100 WBC Auto (Bl d)Ordered By: Jean Jett on 06-10-2022 Neutrophils/100 WBC (Bld) 45.1 % . [facility] Nitrite Test strip Ql (U)Ord ered By: Jean Jett on 06-10-2022 Nitrite Ql (U) Negative Negative [facility] No Panel InformationOrdered By: Jean Jett on 06-10-2022 Estimated GFR () > 60 mL/Min [facility] Comment on above: GFR estimated refere nce range: According to KDOQI guidelines, <60 ml/min/1.73m2 is sufficient to diagnose a patient with chronic kidney disease. Pharmacy Creatinine Clearance (Chem 149.49 [facility] Nucleated erythrocytes [Pres ence] in Blood by Automated countOrdered By: Jean Jett on 06-10-2022 Nucleated RBC Auto Ql (Bld) 0.1 /100{WBC} 0-0.5 [facility] Ovalocyte detectionOrdered B y: Jean Jett on 06-10-2022 Ovalocytes LM Ql (Bld) Slight Fi relandFormerly [facility] Platelet adequacy [Presence] in Blood by Light microscopyOrdered By: Jean Jett on 06-10-2022 Platelets LM Ql (Bld) Normal Normal [facility] Platelet mean volume Auto (B ld) [Entitic vol]Ordered By: Jean Jett on 06-10-2022 Platelet mean volume (Bld) [Entitic vol] 8.3 fL 6.3-10.7 [facility] Platelet morphology finding [Identifier] in BloodOrdered By: Jean Jett on 06-10-2022 Platelet morphology finding Nom (Bld) Normal Normal [facility] Platelet poor plasma interna tional normalized ratio (INR) by coagulation assay (relatOrdered By: Jean Jett on 06-10-2022 INR Coag (PPP) [Relative time] 1.1 {INR} [facility] Comment on above: INR Therapeutic Rang [...] 06-10-2022 Platelets (Bld) [#/Vol] 202 10*3/uL 150-450 [facility] Poikilocytosis [Presence] in Blood by Light microscopyOrdered By: Jean Jett on 06-10-2022 Poikilocytosis LM Ql (Bld) [facility] Polychromasia [Presence] in Blood by Light microscopyOrdered By: Jean Jett on 06-10-2022 Polychromasia LM Ql (Bld) [facility] Potassium [Moles/volume] in Serum or PlasmaOrdered By: Jean Jett on 06-10-2022 Potassium [Moles/Vol] 4.1 mmol/L 3.5-5.1 [facility] Protein Auto test strip (U) [Mass/Vol]Ordered By: Jean Jett on 06-10-2022 Protein (U) [Mass/Vol] Negative Negative [facility] RBC Auto (Bld) [#/Vol]Ordere d By: Jean Jett on 06-10-2022 RBC (Bld) [#/Vol] 3.69 10*6/uL 3.60-5.00 [facility] RBC morphologyOrdered By: Luis Fernando Jett on 06-10-2022 RBC morphology finding Nom (Bld) N/A [facility] Serum or plasma anion gap de terminationOrdered By: Jean Jett on 06-10-2022 Anion gap [Moles/Vol] 10.8 mmol/L 6.0-15.0 [facility] Sodium [Moles/volume] in Ser um or PlasmaOrdered By: Jean Jett on 06-10-2022 Sodium [Moles/Vol] 136 mmol/L 136-146 [facility] Specific gravity Auto test s trip (U) [Rel density]Ordered By: Jean Jett on 06-10-2022 Specific gravity (U) [Rel density] 1.010 1.001-1.030 [facility] Target cellsOrdered By: Mackenzie Jett on 06-10-2022 Target cells LM Ql (Bld) [facility] Teardrop cell detectionOrder ed By: Jean Jett on 06-10-2022 Dacrocytes LM Ql (Bld) Slight Fi [facility] Troponin I.cardiac [Mass/vol ume] in Serum or Plasma by High sensitivity methodOrdered By: Jean Jett on 06-10-2022 Troponin I.cardiac High sensitivity method [Mass/Vol] < 3 pg/mL 0-15 [facility] Urea nitrogen [Mass/volume] in Serum or PlasmaOrdered By: Jean Jett on 06-10-2022 Urea nitrogen [Mass/Vol] 9 mg/dL 01-08 [facility] Urine clarity by refractomet ry automatedOrdered By: Jean Jett on 06-10-2022 Clarity Refractometry automated (U) Clear Clear [facility] Urine glucose measurement by automated test strip (mass/volume)Ordered By: Jean Jett on 06-10-2022 Glucose Auto test strip (U) [Mass/Vol] Normal mg/dL Normal [facility] Urine hemoglobin detection b y automated test stripOrdered By: Jean Jett on 06-10-2022 Hemoglobin Auto test strip Ql (U) Negative Negative [facility] Urine leukocyte esterase det ection by automated test stripOrdered By: Jean Jett on 06-10-2022 Leukocyte esterase Auto test strip Ql (U) Negative Negative [facility] Urobilinogen Auto test strip (U) [Mass/Vol]Ordered By: Jean Jett on 06-10-2022 Urobilinogen (U) [Mass/Vol] Normal mg/dL Normal [facility] WBC Auto (Bld) [#/Vol]Ordere d By: Jean Jett on 06-10-2022 WBC (Bld) [#/Vol] 5.3 10*3/uL 3.8-11.6 [facility] pH Auto test strip (U)Ordere d By: Jean Jett on 06-10-2022 pH (U) 5.5 [pH] 5.0-9.0 [facility] Alkaline phosphatase [Enzyma tic activity/volume] in Serum or PlasmaOrdered By: Julieta Jefferson on 06-09-2022 ALP [Catalytic activity/Vol] 39 U/L 32-92 [facility] Anisocytosis LM Ql (Bld)Orde red By: Julieta Jefferson on 06-09-2022 Anisocytosis Ql (Bld) Marked [facility] Aspartate aminotransferase [ Enzymatic activity/volume] in Serum or PlasmaOrdered By: Julieta Jefferson on 06-09-2022 AST [Catalytic activity/Vol] 15 U/L 10-42 [facility] Basophils Auto (Bld) [#/Vol] Ordered By: Julieta Jefferson on 06-09-2022 Basophils (Bld) [#/Vol] 0.1 10*3/uL 0.0-0.2 [facility] Basophils/100 WBC Auto (Bld) Ordered By: Julieta Jefferson on 06-09-2022 Basophils/100 WBC (Bld) 1.4 % . [facility] Body fluid albumin measureme nt (mass/volume)Ordered By: Julieta Jefferson on 06-09-2022 Albumin (Body fld) [Mass/Vol] 4.1 g/dL 3.2-5.5 [facility] Calcium [Mass/volume] in Ser um or PlasmaOrdered By: Julieta Jefferson on 06-09-2022 Calcium [Mass/Vol] 9.0 mg/dL 8.2-10.2 [facility] Carbon dioxide, total [Moles /volume] in Serum or PlasmaOrdered By: Julieta Jefferson on 06-09-2022 CO2 [Moles/Vol] 23.3 mmol/L 22.0-30.0 [facility] Cholesterol [Mass/volume] in Serum or PlasmaOrdered By: Julieta Jefferson on 06-09-2022 Cholesterol [Mass/Vol] 137 mg/dL 140-200 [facility] Comment on above: Chol less than 200 m g/dl low riskChol 201-239 mg/dl borderline riskChol 240 mg/dl and greater high risk Cholesterol in LDL Calc [Mas s/Vol]Ordered By: Julieta Jefferson on 06-09-2022 Cholesterol in LDL [Mass/Vol] 72 mg/dL 0-100 [facility] Comment on above: LDL ATP III CLASSIFI CATIONLDL less than 100 mg/dL OptimalLDL 100-129 mg/dL Near or above optimalLDL 130-159 mg/dL Borderline highLDL 160-189 mg/dL HighLDL greater than 189 mg/dL Very high Cholesterol in VLDL Calc [Ma ss/Vol]Ordered By: Julieta Jefferson on 06-09-2022 Cholesterol in VLDL [Mass/Vol] 9 mg/dL [facility] Creatinine and Glomerular fi ltration rate.predicted panel (S/P/Bld)Ordered By: Julieta Jefferson on 06-09-2022 Creatinine [Mass/Vol] 0.59 mg/dL 0.44-1.03 [facility] Eosinophils Auto (Bld) [#/Vo l]Ordered By: Julieta Jefferson on 06-09-2022 Eosinophils (Bld) [#/Vol] 0.3 10*3/uL 0.0-0.45 [facility] Eosinophils/100 WBC Auto (Bl d)Ordered By: Julieta Jefferson on 06-09-2022 Eosinophils/100 WBC (Bld) 6.8 % . [facility] Erythrocyte distribution wid th Auto (RBC) [Ratio]Ordered By: Julieta Jefferson on 06-09-2022 Erythrocyte distribution width (RBC) [Ratio] 24.5 % 11.9-15.3 [facility] Estimated glomerular filtrat ion rate (GFR) non- AmericanOrdered By: Julieta Jefferson on 06-09-2022 GFR/1.73 sq M.predicted among non-blacks MDRD (S/P/Bld) [Vol rate/Area] > 60 mL/Min [facility] Globulin Calc (S) [Mass/Vol] Ordered By: Julieta Jefferson on 06-09-2022 Globulin (S) [Mass/Vol] 2.3 g/dL [facility] Glucose mean value [Mass/vol ume] in Blood Estimated from glycated hemoglobinOrdered By: Julieta Jefferson on 06-09-2022 Average glucose Estimated from glycated hemoglobin (Bld) [Mass/Vol] 97 mg/dL [facility] Hematocrit Auto (Bld) [Volum e fraction]Ordered By: Julieta Jefferson on 06-09-2022 Hematocrit (Bld) [Volume fraction] 26.0 % 34.0-46.4 [facility] Hemoglobin A1c percentageOrd ered By: Julieta Jefferson on 06-09-2022 HbA1c (Bld) [Mass fraction] 5.0 % 4.3-5.6 [facility] Comment on above: Increased risk for d iabetes: 5.7 - 6.4diabetes: >6.4glycemic control for adults with diabetes: <7.0 Hemoglobin [Mass/volume] in BloodOrdered By: Julieta Jefferson on 06-09-2022 Hemoglobin (Bld) [Mass/Vol] 7.8 g/dL 11.8-15.4 [facility] Hypochromia LM Ql (Bld)Order ed By: Julieta Jefferson on 06-09-2022 Hypochromia Ql (Bld) Moderate [facility] Leukocytes [#/volume] correc terry for nucleated erythrocytes in Blood by Automated counOrdered By: Julieta Jefferson on 06-09-2022 WBC corrected for nucl RBC Auto (Bld) [#/Vol] 4.6 10*3/uL 3.8-11.6 [facility] Lymphocytes Auto (Bld) [#/Vo l]Ordered By: Julieta Jefferson on 06-09-2022 Lymphocytes (Bld) [#/Vol] 2.0 10*3/uL 1.00-4.8 [facility] Lymphocytes/100 WBC Auto (Bl d)Ordered By: Julieta Jefferson on 06-09-2022 Lymphocytes/100 WBC (Bld) 44.2 % . [facility] MCH Auto (RBC) [Entitic mass ]Ordered By: Julieta Jefferson on 06-09-2022 MCH (RBC) [Entitic mass] 19.7 pg 24.7-34.3 [facility] MCHC Auto (RBC) [Mass/Vol]Or dered By: Julieta Jefferson on 06-09-2022 MCHC (RBC) [Mass/Vol] 30.2 g/dL 32.0-35.0 [facility] MCV Auto (RBC) [Entitic vol] Ordered By: Julieta Jefferson on 06-09-2022 MCV (RBC) [Entitic vol] 65.3 fL 80-100 [facility] Microcytes LM Ql (Bld)Ordere d By: Julieta Jefferson on 06-09-2022 Microcytes Ql (Bld) Marked [facility] Monocytes Auto (Bld) [#/Vol] Ordered By: Julieta Jefferson on 06-09-2022 Monocytes (Bld) [#/Vol] 0.4 10*3/uL 0.0-0.8 [facility] Monocytes/100 WBC Auto (Bld) Ordered By: Julieta Jefferson on 06-09-2022 Monocytes/100 WBC (Bld) 8.9 % . [facility] Neutrophils Auto (Bld) [#/Vo l]Ordered By: Julieta Jefferson on 06-09-2022 Neutrophils (Bld) [#/Vol] 1.8 10*3/uL 1.8-7.7 [facility] Neutrophils/100 WBC Auto (Bl d)Ordered By: Julieta Jefferson on 06-09-2022 Neutrophils/100 WBC (Bld) 38.7 % . [facility] No Panel InformationOrdered By: Julieta Jefferson on 06-09-2022 Estimated GFR () > 60 mL/Min [facility] Comment on above: GFR estimated refere nce range: According to KDOQI guidelines, <60 ml/min/1.73m2 is sufficient to diagnose a patient with chronic kidney disease. Pharmacy Creatinine Clearance (Chem N/A [facility] Nucleated erythrocytes [Pres ence] in Blood by Automated countOrdered By: Julieta Jefferson on 06-09-2022 Nucleated RBC Auto Ql (Bld) 0.1 /100{WBC} 0-0.5 [facility] Platelet adequacy [Presence] in Blood by Light microscopyOrdered By: Julieta Jefferson on 06-09-2022 Platelets LM Ql (Bld) Normal Normal [facility] Platelet mean volume Auto (B ld) [Entitic vol]Ordered By: Julieta Jefferson on 06-09-2022 Platelet mean volume (Bld) [Entitic vol] 8.2 fL 6.3-10.7 [facility] Platelet morphology finding [Identifier] in BloodOrdered By: Julieta Jefferson on 06-09-2022 Platelet morphology finding Nom (Bld) Normal Normal [facility] Platelets Auto (Bld) [#/Vol] Ordered By: Julieta Jefferson on 06-09-2022 Platelets (Bld) [#/Vol] 200 10*3/uL 150-450 [facility] Poikilocytosis [Presence] in Blood by Light microscopyOrdered By: Julieta Jefferson on 06-09-2022 Poikilocytosis LM Ql (Bld) Slight [facility] Polychromasia [Presence] in Blood by Light microscopyOrdered By: Julieta Jefferson on 06-09-2022 Polychromasia LM Ql (Bld) Moderate [facility] Protein [Mass/volume] in Ser um or PlasmaOrdered By: Julieta Jefferson on 06-09-2022 Protein [Mass/Vol] 6.4 g/dL 6.1-7.9 [facility] RBC Auto (Bld) [#/Vol]Ordere d By: Julieta Jefferson on 06-09-2022 RBC (Bld) [#/Vol] 3.97 10*6/uL 3.60-5.00 [facility] RBC morphologyOrdered By: Guicho Jefferson on 06-09-2022 RBC morphology finding Nom (Bld) N/A [facility] Schistocytes [Presence] in B lood by Light microscopyOrdered By: Julieta Jefferson on 06-09-2022 Schistocytes LM Ql (Bld) Slight [facility] Serum or plasma alanine paredes otransferase measurement without P-5'-P (enzymatic activiOrdered By: Julieta Jefferson on 06-09-2022 ALT No additional P-5'-P [Catalytic activity/Vol] 14 U/L 10-60 [facility] Serum or plasma albumin/glob ulin mass ratioOrdered By: Julieta Jefferson on 06-09-2022 Albumin/Globulin [Mass ratio] 1.8 {ratio} [facility] Serum or plasma anion gap de terminationOrdered By: Julieta Jefferson on 06-09-2022 Anion gap [Moles/Vol] 11.5 mmol/L 6.0-15.0 [facility] Serum or plasma calcitriol m easurement (mass/volume)Ordered By: Julieta Jefferson on 06-09-2022 1,25-dihydroxyvitamin D3 [Mass/Vol] 60.5 pg/mL 24.8-81.5 [facility] Comment on above: Performed at: [address] [id number] Director: Jon Horton MD, Phone: [phone] Serum or plasma chloride robel surement (moles/volume)Ordered By: Julieta Jefferson on 06-09-2022 Chloride [Moles/Vol] 106 mmol/L 95-114 [facility] Serum or plasma glucose kelly urement (mass/volume)Ordered By: Julieta Jefferson on 06-09-2022 Glucose [Mass/Vol] 78 mg/dL 70-100 [facility] Comment on above: ADA recommended refe rence rangeRandom Glucose Reference Range is dependent on time and content of last meal. Glucose of more than 200 mg/dL in a nonstressed, ambulatory subject supports the diagnosis of Diabetes Mellitus. Serum or plasma high density lipoprotein (HDL) cholesterol measurementOrdered By: Julieta Jefferson on 06-09-2022 Cholesterol in HDL [Mass/Vol] 56 mg/dL 35-85 [facility] Comment on above: HDL CHOL ATP-III CLA SSIFICATION Cardiovascular RiskHDL > or equal to 60 mg/dL LOWHDL < 40 mg/dL HIGH Serum or plasma potassium me asurement (moles/volume)Ordered By: Julieta Jefferson on 06-09-2022 Potassium [Moles/Vol] 3.8 mmol/L 3.5-5.1 [facility] Serum or plasma sodium measu rement (moles/volume)Ordered By: Julieta Jefferson on 06-09-2022 Sodium [Moles/Vol] 137 mmol/L 136-146 [facility] Serum or plasma total biliru bin measurement (mass/volume)Ordered By: Julieta Jefferson on 06-09-2022 Bilirubin [Mass/Vol] 0.3 mg/dL 0.3-1.2 [facility] Serum or plasma total choles terol/high density lipoprotein (HDL) cholesterol mass ratOrdered By: Julieta Jefferson on 06-09-2022 Cholesterol.total/Chol esterol in HDL [Mass ratio] 2.4 {ratio} <5.0 [facility] TSH DL <= 0.005 mIU/L QnOrde red By: Julieta Jefferson on 06-09-2022 TSH Qn 4.10 m[IU]/L 0.45-5.33 [facility] Teardrop cell detectionOrder ed By: Julieta Jefferson on 06-09-2022 Dacrocytes LM Ql (Bld) Slight Fi relandFormerly [facility] Triglyceride [Mass/volume] i n Serum or PlasmaOrdered By: Julieta Jefferson on 06-09-2022 Triglyceride [Mass/Vol] 45 mg/dL 35-149 [facility] Comment on above: TRIG ATP III CLASSIF ICATIONTRIG less than 150 mg/dL NormalTRIG 150-199 mg/dL Borderline highTRIG 200-500 mg/dL High TRIG greater than 500 mg/dL Very highStandard traceable to the Center for Disease Conrtrol and Prevention (CDC) test method. Urea nitrogen [Mass/volume] in Serum or PlasmaOrdered By: Julieta Jefferson on 06-09-2022 Urea nitrogen [Mass/Vol] 6 mg/dL 01-08 [facility] WBC Auto (Bld) [#/Vol]Ordere d By: Julieta Jefferson on 06-09-2022 WBC (Bld) [#/Vol] 4.6 10*3/uL 3.8-11.6 [facility] Urine 10 SGon 04-21-2022 Albumin DL <= 20 mg/L (U) [Mass/Vol] Negative [employer] Other pH (U) 7.0 [pH] [employer] Other Urine 10 SG Negative [employer] Other Urine 10 SG 1.020 [employer] Other Urine 10 SG large [employer] Other Urine Cultureon 04-21-2022 Bacteria identified Cx Nom (U) [employer] Other Urine culture routineOrdered By: Amanda Ford on 04-21-2022 Bacteria identified Cx Nom (U) 2 Days [facility] Activated partial thrombopla stin time (aPTT) in platelet poor plasma by coagulation aOrdered By: Phu Hdz on 04-10-2022 aPTT Coag (PPP) [Time] 30.4 s 25.1-36.5 [facility] Automated erythrocytes count in urine sediment (number/area)Ordered By: Jean Jett on 04-10-2022 RBC Auto (Urine sed) [#/Area] Innumerable [HPF] 0-4 [facility] Automated leukocytes count i n urine sediment (number/area)Ordered By: Jean Jett on 12-24-2022 WBC Auto (Urine sed) [#/Area] 3-4 [HPF] 0-4 [facility] Automated urine sediment mukesh cium oxalate crystal count by microscopy (number/high powOrdered By: Jean Jett on 04-10-2022 Calcium oxalate crystals LM.HPF (Urine sed) [#/Area] 1+ [HPF] [facility] Basophils Auto (Bld) [#/Vol] Ordered By: Jean Jett on 04-10-2022 Basophils (Bld) [#/Vol] 0.0 10*3/uL 0.0-0.2 [facility] Basophils/100 WBC Auto (Bld) Ordered By: Jean Jett on 04-10-2022 Basophils/100 WBC (Bld) 0.5 % . [facility] Bilirubin Test strip Ql (U)O rdered By: Jean Jett on 04-10-2022 Bilirubin Ql (U) 1+ Negative [facility] Casts typing in urine sedime nt by light microscopyOrdered By: Jean Jett on 04-10-2022 Casts LM Nom (Urine sed) None seen [LPF] None Seen [facility] Color Auto (U)Ordered By: Luis Fernando Jett on 04-10-2022 Color (U) Red Yellow [facility] Creatinine and Glomerular fi ltration rate.predicted panel (S/P/Bld)Ordered By: Jean Jett on 04-10-2022 Creatinine [Mass/Vol] 0.68 mg/dL 0.44-1.03 [facility] Eosinophils Auto (Bld) [#/Vo l]Ordered By: Jean Jett on 04-10-2022 Eosinophils (Bld) [#/Vol] 0.2 10*3/uL 0.0-0.45 [facility] Eosinophils/100 WBC Auto (Bl d)Ordered By: Jean Jett on 04-10-2022 Eosinophils/100 WBC (Bld) 2.1 % . [facility] Erythrocyte distribution wid th Auto (RBC) [Ratio]Ordered By: Jean Jett on 04-10-2022 Erythrocyte distribution width (RBC) [Ratio] 14.3 % 11.9-15.3 [facility] Estimated glomerular filtrat ion rate (GFR) non- AmericanOrdered By: Jean Jett on 04-10-2022 GFR/1.73 sq M.predicted among non-blacks MDRD (S/P/Bld) [Vol rate/Area] > 60 mL/Min [facility] HCG ( test) IA.rapi d Ql (U)Ordered By: Jean Jett on 04-10-2022 HCG ( test) Ql (U) Negative [facility] Hematocrit Auto (Bld) [Volum e fraction]Ordered By: Jean Jett on 04-10-2022 Hematocrit (Bld) [Volume fraction] 29.4 % 34.0-46.4 [facility] Hemoglobin [Mass/volume] in BloodOrdered By: Jean Jett on 04-10-2022 Hemoglobin (Bld) [Mass/Vol] 9.9 g/dL 11.8-15.4 [facility] Ketones Auto test strip (U) [Mass/Vol]Ordered By: Jean Jett on 04-10-2022 Ketones (U) [Mass/Vol] Negative Negative Fi [facility] - CoagulationOrde red By: Phu Hdz on 04-10-2022 PT Coag (PPP) [Time] 12.4 s 9.0-12.9 [facility] - UrinalysisOrder ed By: Jean Jett on 04-10-2022 Hyaline casts LM Ql (Urine sed) None seen [LPF] 0-8 [facility] Leukocytes [#/volume] correc terry for nucleated erythrocytes in Blood by Automated counOrdered By: Jean Jett on 04-10-2022 WBC corrected for nucl RBC Auto (Bld) [#/Vol] 8.5 10*3/uL 3.8-11.6 [facility] Lymphocytes Auto (Bld) [#/Vo l]Ordered By: Jean Jett on 04-10-2022 Lymphocytes (Bld) [#/Vol] 2.1 10*3/uL 1.00-4.8 [facility] Lymphocytes/100 WBC Auto (Bl d)Ordered By: Jean Jett on 04-10-2022 Lymphocytes/100 WBC (Bld) 25.2 % . [facility] MCH Auto (RBC) [Entitic mass ]Ordered By: Jean Jett on 04-10-2022 MCH (RBC) [Entitic mass] 28.8 pg 24.7-34.3 [facility] MCHC Auto (RBC) [Mass/Vol]Or dered By: Jean Jett on 04-10-2022 MCHC (RBC) [Mass/Vol] 33.6 g/dL 32.0-35.0 [facility] MCV Auto (RBC) [Entitic vol] Ordered By: Jean Jett on 04-10-2022 MCV (RBC) [Entitic vol] 85.7 fL 80-100 [facility] Monocyte distribution width [Entitic volume] in Blood by AutomatedOrdered By: Jean Jett on 04-10-2022 Monocyte distribution width Auto (Bld) [Entitic vol] 14.20 % 0.00-20.00 [facility] Monocytes Auto (Bld) [#/Vol] Ordered By: Jean Jett on 04-10-2022 Monocytes (Bld) [#/Vol] 0.5 10*3/uL 0.0-0.8 [facility] Monocytes/100 WBC Auto (Bld) Ordered By: Jean Jett on 04-10-2022 Monocytes/100 WBC (Bld) 5.7 % . [facility] Neutrophils Auto (Bld) [#/Vo l]Ordered By: Jean Jett on 04-10-2022 Neutrophils (Bld) [#/Vol] 5.6 10*3/uL 1.8-7.7 [facility] Neutrophils/100 WBC Auto (Bl d)Ordered By: Jean Jett on 04-10-2022 Neutrophils/100 WBC (Bld) 66.5 % . [facility] Nitrite Test strip Ql (U)Ord ered By: Jean Jett on 04-10-2022 Nitrite Ql (U) Positive Negative [facility] [facility] No Panel InformationOrdered By: Jean Jett on 04-10-2022 Estimated GFR () > 60 mL/Min [facility] Comment on above: GFR estimated refere nce range: According to KDOQI guidelines, <60 ml/min/1.73m2 is sufficient to diagnose a patient with chronic kidney disease. Pharmacy Creatinine Clearance (Chem 152.39 [facility] Nucleated erythrocytes [Pres ence] in Blood by Automated countOrdered By: Jean Jett on 04-10-2022 Nucleated RBC Auto Ql (Bld) 0.0 /100{WBC} 0-0.5 [facility] Platelet mean volume Auto (B ld) [Entitic vol]Ordered By: Jean Jett on 04-10-2022 Platelet mean volume (Bld) [Entitic vol] 6.9 fL 6.3-10.7 [facility] Platelet poor plasma interna tional normalized ratio (INR) by coagulation assay (relatOrdered By: Phu Hdz on 04-10-2022 INR Coag (PPP) [Relative time] 1.1 {INR} [facility] Comment on above: INR Therapeutic Rang [...] 04-10-2022 Platelets (Bld) [#/Vol] 263 10*3/uL 150-450 [facility] Protein Auto test strip (U) [Mass/Vol]Ordered By: Jean Jett on 04-10-2022 Protein (U) [Mass/Vol] 100 mg/dL Negative [facility] RBC Auto (Bld) [#/Vol]Ordere d By: Jean Jett on 04-10-2022 RBC (Bld) [#/Vol] 3.43 10*6/uL 3.60-5.00 [facility] Serum or plasma anion gap de terminationOrdered By: Jean Jett on 04-10-2022 Anion gap [Moles/Vol] 8.5 mmol/L 6.0-15.0 [facility] Serum or plasma calcium kelly urement (mass/volume)Ordered By: Jean Jett on 04-10-2022 Calcium [Mass/Vol] 8.6 mg/dL 8.2-10.2 [facility] Serum or plasma chloride robel surement (moles/volume)Ordered By: Jean Jett on 04-10-2022 Chloride [Moles/Vol] 106 mmol/L 95-114 [facility] Serum or plasma glucose kelly urement (mass/volume)Ordered By: Jean Jett on 04-10-2022 Glucose [Mass/Vol] 99 mg/dL 70-100 [facility] Comment on above: ADA recommended refe rence rangeRandom Glucose Reference Range is dependent on time and content of last meal. Glucose of more than 200 mg/dL in a nonstressed, ambulatory subject supports the diagnosis of Diabetes Mellitus. Serum or plasma potassium me asurement (moles/volume)Ordered By: Jean Jett on 04-10-2022 Potassium [Moles/Vol] 3.6 mmol/L 3.5-5.1 [facility] Serum or plasma sodium measu rement (moles/volume)Ordered By: Jean Jett on 04-10-2022 Sodium [Moles/Vol] 138 mmol/L 136-146 [facility] Serum or plasma total carbon dioxide measurement (moles/volume)Ordered By: Jean Jett on 04-10-2022 CO2 [Moles/Vol] 27.1 mmol/L 22.0-30.0 [facility] Serum or plasma urea nitroge n measurement (mass/volume)Ordered By: Jean Jett on 04-10-2022 Urea nitrogen [Mass/Vol] 5 mg/dL 9-23 [facility] Specific gravity Auto test s trip (U) [Rel density]Ordered By: Jean Jett on 04-10-2022 Specific gravity (U) [Rel density] 1.033 1.001-1.030 [facility] Squamous epithelial cells de tection in urine sediment by light microscopyOrdered By: Jean Jett on 04-10-2022 Epithelial cells.squamous LM Ql (Urine sed) 3-4 [HPF] 0-2 [facility] Urine bacteria detection by automated methodOrdered By: Jean Jett on 04-10-2022 Bacteria Auto Ql (U) None seen None Seen [facility] Urine clarity by refractomet ry automatedOrdered By: Jean Jett on 04-10-2022 Clarity Refractometry automated (U) Turbid Clear [facility] Urine culture routineOrdered By: Jean Jett on 04-10-2022 Bacteria identified Cx Nom (U) 2 Days [facility] Urine glucose measurement by automated test strip (mass/volume)Ordered By: Jean Jett on 04-10-2022 Glucose Auto test strip (U) [Mass/Vol] Normal mg/dL Normal [facility] Urine hemoglobin detection b y automated test stripOrdered By: Jean Jett on 04-10-2022 Hemoglobin Auto test strip Ql (U) 3+ Negative [facility] Urine leukocyte esterase det ection by automated test stripOrdered By: Jean Jett on 04-10-2022 Leukocyte esterase Auto test strip Ql (U) 2+ Negative [facility] Urine sediment crystal ident ification by light microscopyOrdered By: Jean Jett on 04-10-2022 Crystals LM Nom (Urine sed) None seen [HPF] [facility] Urobilinogen Auto test strip (U) [Mass/Vol]Ordered By: Jean Jett on 04-10-2022 Urobilinogen (U) [Mass/Vol] Normal mg/dL Normal [facility] WBC Auto (Bld) [#/Vol]Ordere d By: Jean Jett on 04-10-2022 WBC (Bld) [#/Vol] 8.5 10*3/uL 3.8-11.6 [facility] pH Auto test strip (U)Ordere d By: Jean Jett on 04-10-2022 pH (U) 5.5 [pH] 5.0-9.0 [facility] Basophils Auto (Bld) [#/Vol] Ordered By: PROVIDER TEMP on 04-08-2022 Basophils (Bld) [#/Vol] 0.0 10*3/uL 0.0-0.2 [facility] Basophils/100 WBC Auto (Bld) Ordered By: PROVIDER TEMP on 04-08-2022 Basophils/100 WBC (Bld) 0.4 % . [facility] Eosinophils Auto (Bld) [#/Vo l]Ordered By: PROVIDER TEMP on 04-08-2022 Eosinophils (Bld) [#/Vol] 0.4 10*3/uL 0.0-0.45 [facility] Eosinophils/100 WBC Auto (Bl d)Ordered By: PROVIDER TEMP on 04-08-2022 Eosinophils/100 WBC (Bld) 5.5 % . [facility] Erythrocyte distribution wid th Auto (RBC) [Ratio]Ordered By: PROVIDER TEMP on 04-08-2022 Erythrocyte distribution width (RBC) [Ratio] 14.1 % 11.9-15.3 [facility] Hematocrit Auto (Bld) [Volum e fraction]Ordered By: PROVIDER TEMP on 04-08-2022 Hematocrit (Bld) [Volume fraction] 33.9 % 34.0-46.4 [facility] Hemoglobin [Mass/volume] in BloodOrdered By: PROVIDER TEMP on 04-08-2022 Hemoglobin (Bld) [Mass/Vol] 11.4 g/dL 11.8-15.4 [facility] Leukocytes [#/volume] correc terry for nucleated erythrocytes in Blood by Automated counOrdered By: PROVIDER TEMP on 04-08-2022 WBC corrected for nucl RBC Auto (Bld) [#/Vol] 8.1 10*3/uL 3.8-11.6 [facility] Lymphocytes Auto (Bld) [#/Vo l]Ordered By: PROVIDER TEMP on 04-08-2022 Lymphocytes (Bld) [#/Vol] 2.3 10*3/uL 1.00-4.8 [facility] Lymphocytes/100 WBC Auto (Bl d)Ordered By: PROVIDER TEMP on 04-08-2022 Lymphocytes/100 WBC (Bld) 28.1 % . [facility] MCH Auto (RBC) [Entitic mass ]Ordered By: PROVIDER TEMP on 04-08-2022 MCH (RBC) [Entitic mass] 29.0 pg 24.7-34.3 [facility] MCHC Auto (RBC) [Mass/Vol]Or dered By: PROVIDER TEMP on 04-08-2022 MCHC (RBC) [Mass/Vol] 33.7 g/dL 32.0-35.0 [facility] MCV Auto (RBC) [Entitic vol] Ordered By: PROVIDER TEMP on 04-08-2022 MCV (RBC) [Entitic vol] 86.0 fL 80-100 [facility] Monocyte distribution width [Entitic volume] in Blood by AutomatedOrdered By: PROVIDER TEMP on 04-08-2022 Monocyte distribution width Auto (Bld) [Entitic vol] 13.83 % 0.00-20.00 [facility] Monocytes Auto (Bld) [#/Vol] Ordered By: PROVIDER TEMP on 04-08-2022 Monocytes (Bld) [#/Vol] 0.5 10*3/uL 0.0-0.8 [facility] Monocytes/100 WBC Auto (Bld) Ordered By: PROVIDER TEMP on 04-08-2022 Monocytes/100 WBC (Bld) 6.7 % . [facility] Neutrophils Auto (Bld) [#/Vo l]Ordered By: PROVIDER TEMP on 04-08-2022 Neutrophils (Bld) [#/Vol] 4.8 10*3/uL 1.8-7.7 [facility] Neutrophils/100 WBC Auto (Bl d)Ordered By: PROVIDER TEMP on 04-08-2022 Neutrophils/100 WBC (Bld) 59.3 % . [facility] Nucleated erythrocytes [Pres ence] in Blood by Automated countOrdered By: PROVIDER TEMP on 04-08-2022 Nucleated RBC Auto Ql (Bld) 0.2 /100{WBC} 0-0.5 [facility] Platelet mean volume Auto (B ld) [Entitic vol]Ordered By: PROVIDER TEMP on 04-08-2022 Platelet mean volume (Bld) [Entitic vol] 7.0 fL 6.3-10.7 [facility] Platelets Auto (Bld) [#/Vol] Ordered By: PROVIDER TEMP on 04-08-2022 Platelets (Bld) [#/Vol] 199 10*3/uL 150-450 [facility] RBC Auto (Bld) [#/Vol]Ordere d By: PROVIDER TEMP on 04-08-2022 RBC (Bld) [#/Vol] 3.94 10*6/uL 3.60-5.00 [facility] WBC Auto (Bld) [#/Vol]Ordere d By: PROVIDER TEMP on 04-08-2022 WBC (Bld) [#/Vol] 8.1 10*3/uL 3.8-11.6 [facility] XR shoulder RT min 2V*on XR shoulder RT min 2V* [facility] [employer] Other XR shoulder RT min 2V* [facility] [employer] Other XR shoulder RT min 2V* [address] [facility] [employer] Other XR shoulder RT min 2V* LUKE Bazzi [id number] [facility] [employer] Other XR shoulder RT min 2V* XRay Report N [facility] [employer] Other XR shoulder RT min 2V* Signed No rt [employer] Other XR shoulder RT min 2V* Patient: Meagan Sanders MR#: [id number] Clifford [employer] Other XR shoulder RT min 2V* 978[address] No rt [employer] Other XR shoulder RT min 2V* : 1995 Acct:[id number] [employer] Other XR shoulder RT min 2V* Age/Sex: 27 / F A DM Date: 03/23/22 [employer] Other XR shoulder RT min 2V* Loc: [facility] Room: T e: [facility] [employer] Other XR shoulder RT min 2V* Attending Dr: Daxa Ford APRN, [employer] Other XR shoulder RT min 2V* Copies to: Yaya Ford APRN, JARROD [employer] Other XR shoulder RT min 2V* Ordering Provider : Amanda Ford APRN, JARROD [employer] Other XR shoulder RT min 2V* Date of Service: 03/23/22 [employer] Other XR shoulder RT min 2V* XR/XR shoulder RT min 2V*: Other chronic pain;Pain in right shoulder [employer] Other XR shoulder RT min 2V* RIGHT SHOULDER - - 3 views [employer] Other XR shoulder RT min 2V* CLINICAL HISTORY: Pain lateral to right shoulder for 6 months. [employer] Other XR shoulder RT min 2V* COMPARISON: None [employer] Other XR shoulder RT min 2V* FINDINGS: No [employer] Other XR shoulder RT min 2V* Minimal degenerat misti changes of the right AC joint. Glenohumeral joint is grossly unremarkable. No [employer] Other XR shoulder RT min 2V* acute bony process. [employer] Other XR shoulder RT min 2V* 0 XR/XR shoulder RT min 2V* [employer] Other XR shoulder RT min 2V* IMPRESSION: N REEL Qualified Other XR shoulder RT min 2V* MINIMAL DEGENERAT MISTI CHANGES. NO ACUTE BONY PROCESS. [employer] Other XR shoulder RT min 2V* Impression dictat ed by: Sravan Dickinson Jr., D.O.03/23/2022 4:06 PM [employer] Other XR shoulder RT min 2V* Dictation Locatio n: [id number]-PC-12 [employer] Other XR shoulder RT min 2V* Transcribed By: Diaz OWENS 03/23/22 1606 [employer] Other XR shoulder RT min 2V* Dictated By: Jasiel Dickinson Jr DO 03/23/22 1605 [employer] Other XR shoulder RT min 2V* S[facility] By: [facility] [employer] Other XR shoulder RT min 2V* 03/23/22 1606 [facility] [employer] Other Coding Summary.on 09-03-2021 Coding Summary. [id number] Gh0 bWw+PGhlYWQ+TW6TKBNtO79 alKVknO7LG0oFKS9TMTEDEX GOIQ4GSV1lvZW3YDpmA3Zea iAv YlhuxWPvZX68IMw6NWS5mMz rRPfarC0ciKYkZ9f5VnVuHU 68sN72AEijADWqCgU3GfXeg jsgbWFy B8aeZkQnaXBsOcq+PHRhYmx lIHdpZHRoPScxMDAlJyBzdH gnRN3vZu1lDMDbGWVflYyha HNlOiBj z7wnNRYrCPrgCL3vlStiX1C kiEK4JVFyy5o6Kj75iIC+PH HeRAQ5lRqxZLxuv461NpRfu 7xcGHW0 lXSvXBeyFFP9Z17xs4S3GTC fEPZeKMG7zNC7lH5cpQvdhf gnB1SvdXGcQfN5OCQ6lYYlk A9pgBpx vmyncG1sPne+V85JZF9XHHD RGK8WQio7P7SxXafhtZJ+PC 99LWKwAN98vQLouNYfq1sqs Uf5YgEp ZIFzUCK5mCwnYEwnh7LwRZG pI74lnYFxh9L0YFJacDnhlC ZsXtEomAA8mR2tEKeutueqe 2hvdzsn Evzqv6fewo60vJ35T99fSNz pLMYyHJS1HQPpFXHlmVijwx 1owX3dDt1+NNbai0iid3cqh Yl4HxKo TUEanpWllDnwVWF4c8OeRh9 9Z8GkmMssu7UdNub2sk26yT Gfc9I6oAM4VAixPOCcpZ1rF WxlZnQ6 ZQZtCaTbbI34oSWpMIgsJf6 dpDqdbOohLW9pOGTvsvypOV HbsI1wLSLtuZZwvSnaDQ4tH TBpbjtm p526YiNuQXD7KCHscGOlF2P jfJ5gIsKtEOZbIKCoO0ZmzI SiVPhaJ394TDcrKxC4SYApd rMyV4Rs BGLurUaiPeV5k6D9Ix0Wx6R iwkykADR2GDvoKJP2BuN9Cj HfZzA9U6GmHrx3KVAowYysK T9eN0Er EYKwcoeyjpsrmNE8KDLtDSA kjG83fDMmMGucYg7ud2N7j8 29FOVoVOGlvT26Gq6toBtoD TBwdCBU iZ7knmyfr4iltlpiRsPsZLY hGDo7BBn7WKCtwAppEcDdTF L7ByH2TXM2lLJnlC7qaJcep hrxcR6k Oyc+V75oxP9fAMG6TPC4dzy xXPGxvrChBE21JT19Q1LdFv wvdGFibGU+PGRpdiBzdHlsZ Z7oRxSk a6kjj4RnFYwxJ8AvUFOmQTv rQbd5HEUqWRK6nRA1tG8eXF MxJQvgz6R0sLM2B3XvxfXmi m5uj6zu UCEzGLhcP82weIWdh7T3EQI phEA5RYYhuAvmScTmzU24Rp c+WULosHune1LjBoelv8ynu 1zdbCr0 ZdTjLFCsanRhzAveEDA5g5U cKv08L24cUAwjDGJrZSPeJT LwEQVpxXbhzp1qjV4iZw8+P GNvbCB3 hUK5vR6zWFTrUyK3LHicM10 8PsCmuNSxHtfhw8ody7visE y3WdDvZWVfsqTerQqjTJL4c 1YmKg29 O50xBPfgGZDmEIAuXYZyBVI qvYxvzn5nhB1pQx2+PC9jb2 xmye15eD42yTV+QMXkIZZ9a WxlPSdw RUFplQ0xYFtuHwM9OCJwUwM mkF78kMDwZFdeZo2tbZspgK qeHT4kJFPcoxqjd506HiRti 2xkIDEw mEIoCHpkHRI3B63sn6J8NGF bLKAiIPD5aQW3lY9uqQcwoq ogbGVmdDsgdmVydGljYWwtY OjmO820 IHRvcDsnPlBhdGllbnQgTmF mGKi9Z7OcTch3ZPGcfBpbQK 5lfXLxEWqpDy1okMcgbWcaT V3eEXPw dgazy256QmSrw1vfLYUgoHA iCYzlPKU6U03df0G6SDQhZD CoTBD8eDI5rF7xoAqaxeybf GVmdDsg vgRkbLceGKkvEJmuY665PKD lqEjaBaNffuOaYMXcfGR6MD 87VX79uVRqm7V8lAI8X4QmX GRpbmct brefbMR4WSPiVWYexF47Yu5 whMukMb9wRTXpNOQ7ALWwrN GpP8UwdT6sNcGgPMZqQEBpF 3RleHQt MTbsE097PMwoOcU7NEAdqeW dH7WzSHOntVwpHfZ8e9E9Yi 1XT4T5HZ38EF80jHSwu6K3o WV7P1Yb KUGaihbuxjqyrKL0ESHcAJU nsZ92Zy8uxOwpDq8bDZTgOI W0IVWjePXmV8MlsF5tMwOhP DAwMDAw C7OurQDdOJlxC000YQylCkC 2OSMvigSaV6PkRPQmrOihUq R7e4G6Hg7MERo0VF10FS13j POtd7I1 hGF6M6QcDXRmmfxzqecxfOZ 9BWRjOJLbxP46Es6dfNucPw 9mATStJBR7KAJzdGRrE7Map G5yTwRs UVMpEPBlU0GseVFmBNetU85 0SLycBwJ4FLYupsYdE1PuMW DjtIkeBbC3r6Q7Ne2XOGCzF M18XIK7 dVD4KA15OH50L5UpLawhwOZ ibGU+PHRhYmxlIHdpZHRoPS ueJXZpMkRukHlgKS8rZh5mP GVyLWNv zLvcyEZoWgHui4flGFGnNWu yUD2pcVhfN1YdpLB4LJAag7 t0Bi89H25oE8FmrWA+PGNvb HA1eLE0 iZ9qVdAyOnH7URcjT437LbQ ldRXdUrftu9ygt4aejUe1Ag Q4WJElriCxuPvxQTV1p4SpQ y57I27k IHdpZHRoPSIxNSUiIHZhbGl ozw5shM4pTf8+AMBqjVW6hX N2kP5vAvZkLiU1BLeiF338T nRvcCIv Zktcj2zje1zuoBc9PiXpWGD wqmQbuRdtYIO7r5ZmXp41Z6 CycElqx9LpGkg6ot89zSBei 4F9wZR7 W2IcKQYeqnxzuWLccNnoLG6 jBVCuhnqxDSVbxO9iKCIgX2 p8NeKlIgW0YKkiK1LvuvA9S DEwcHQg JDwxHBK7S06ia2W9MRPfDGL fVXF6lMR6zE5doLgoyyrcbW VmdDsgdmVydGljYWwtYWxpZ 246IHRv wLwpSJQaiV7zVMUorDTomKn sMJ2iTVDrnhvfWu6HF2ORDk wgSEVBVEhFUjwvdGQ+PHRkI OV9gQty DLwaCQNuaW8tGKZkJ8r4WwA tRoM9ONrlC1AuARFbsidwYs 79lN4vSsRePqM8JBqrL7Swt cT5TRPm rQQxXKpiYDL6T65fm8F9EEU vSRHnFUP1aPY0xO8qoOoefg ogbGVmdDsgdmVydGljYWwtY EgtJ278 HTPfsSvvGbMfUpN7VsN8FHV 9Y1JzBsu1YQYdaLssSM2ivW WcVLjxGs0aqRexeWimSO4vX TBpbjtw LMSrwW1tIBTvdNXucOfzCA4 tZVPpnbeov002NvVsSDK1IV RxmIWoA9EabI8uByEeRRJnA WKcB9Qr hINcMXsvN239VOifVkQ4KMG fewDdB8JzKOMcxZpwRcT7e5 Z6Hh9kNfQNYPFmdsybrXR+P HRkIHN0 uYacWMxmQIIxoO9yKWWqC7y 6KjSoVlO3UEdrT5PqZHJuzy iaCx67hI4oFbVpRdT1NOspI 8ZfrzO4 BGTpwRPgVFhoIAN7C66zj6W 2HHAhNQYuILD9uSI8wI2keC lnbjogbGVmdDsgdmVydGljY WwtYWxp Z443RLBzdIlxIpHasAGfLNo vdGQ+GAYzJEO6jWvqWRyhVQ ErdE9fBTNiI0w9ShQyNxI8P QcuG6Uw EVBcaeejQg94nC2nIlJdFxS 4MWbdF3EbjqK5WOCkoDBnGG lqCJQ1M35en8K6SOWnIWUxB KZ9kAZ5 cX0ouOonwcphaJKzpTrvmhC htGhnRYqzKLoeV355IOZveV olSh50tMDctKsgjoC9Y2VbB jwvdHI+ XJ83DRJdXD09fHIqcMVjo4o bcLa8FgKhOOKnYEA1iPbgBV pqo3DhYMXiV83doHEtb5Z3M GNvbGxh dZKlTdWthLS8iS9fUEijnrz gx7dneeojCqwai5uzbd67vT 19V01eMLefBKCeCORjSITbL HZhbGln mn4kdE5bLd0+CCTyuGD5lEA 2gX8tDaIwNsJ8JIiuS542Sg UmoWOtVdiyf2bio9bdyJn7C jIwJSIg xcAjeFkcRNE8z7ChNs24J39 sIHdpZHRoPSIyMCUiIHZhbG dtke7ygU7jKg7+MU5hq5arz n63tT35 dHI+DLEyDSM7sBsyAZpnGLS chD0oGQtjYlS7TTXvTzQuhD 56dJIjZYnuOf3jpYaitEebU L6vTOCz gfhra755DcSkq6xvXQOupPT yXWduZTO6K43ff0T7REUyXI BvITJ5wXN4sN4liXrvamjvj GVmdDsg paZpkIglQJzdYMmhC647MAM kqJzkMjBdrFLcG6jytnREIV 1lOjwvdGQ+QCAeXXV1kWncS SdwYWRk eA9lQNHgT1h2MlLsDmS5FRt uF3DihqH7AURtaMMpNPSayN MKwA0eadyig6crtjctHdJyJ DAwMDt0 UZx2WTXztMtqTgRvGBU6TdO 0DHP7cEKbpH4twUfqwtavuM 9wOyc+RklOOjwvdGQ+PHRkI OB2zZua HDryQFHytN8sQLJtI3h0OjQ rZgC1SGmaQ2XwheS4APCokI OuEEUunDOUbM7kumhmf3eig jogIzAw QNPcOZt8BDy8EOIrsMtuRlZ hASB3LzP2LMT3tZZqkP3hhU wybisnnI8lEvq+TVJOOjwvd GQ+PHRk DBH6bYwbKAwbYSNcyO2wULH iP1u1MtKeLbZ2MNnbG4Xpkl E8CCTptVVzVJVtcJEOgY6fn wgsa5uu toosHvVuJRPuATi2ZYp9EXB lzTfrYfSoTQV7SnD0DDG9yI VbmE2oqWlwcepygJ2fVbk+U UH3JDM2 DN18AT50O1BbEzmphFAwnBD +PHRhYmxlIHdpZHRoPScxMD KcJgDjfYclCI6rPx0jVARpE WNvbGxh cHNl (more content not included)... Normal [facility]/Cl inic Noteon 09-02-2021 [...] Jack eXperience to record this visit. 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 ANAMARIA: [...] History Bipolar: Sister. Depression: Mother and Grandparent. [facility] Comment on above: Result Comment: Elec tronically Signed By: Samir Thompson MD\.br\Date and Time Signed: 09/02/21 09:25 EDT\.br\Electronically Co-Signed By: Rissa Arias\.br\Date and Time Co-Signed: 09/01/21 17:11 EDT Coding Summary.on 09-01-2021 Coding Summary. [id number] Gh0 bWw+PGhlYWQ+OO5LWOAwW15 saOVomK1AI4qLQE6UROQNYY HGFO1LYK3nbEV1NDgqI0Prg iAv LfjvmPFhYH16CHe3BQQ6yMf dHRymzF6mqVSxN8l8LrVzZK 62eH83TQujPSYhUkI2GmMpp jsgbWFy I1idXkUxhGYyMvu+PHRhYmx lIHdpZHRoPScxMDAlJyBzdH puML2tJu3gVISoLHTnsQant HNlOiBj b2wtFXYxQZfdRX4uzFdfU6E afLY7WCPpb3m1Ub89xFZ+PH KzEHF5qGrgBHcuz745FzDjj 5ghSYF1 sFGaEFgrROH5V79hg4V0DKT eYPJhCJE4sJR0uC6xfWsfgr mrD6NcfERsFjZ9HTE6pLNad J5whAao yleglE4xNvu+M58DVM2QWYY VCJ6NRnh8L5IuPjuilGD+PC 61GFArJM27kHYcxKSsq7ohl Jf2NfCr PGKtNHQ3cDqyBJkmj2KsFGE qK94qzGIjb4R2NLJdiXmweA JjYrCifKY0cP2wQNtluhcdo 2hvdzsn Izkhy0rlzf69fJ78B81pVEh eUIXuCLV6OVJtTZCjiVjhsu 0ouX5pBy0+VTlqr5urj6rup Xi5OyPq CQNryyCwnLsrWVF6j9VzOl7 4K4FkoRycw2GzLgy7ge13uP Yqt4Q6uNF3IDrkIQAllY0xR WxlZnQ6 RXXlGtQszM11gRHaVYmwRs5 kdXtjsInpSE2eAJYasknrDB EeuE3lEGHqpNKtaLeyGS1kM TBpbjtm q025VgJkAKD6URKstQGlD3V frG5aCuAoEKJoEZIjX6FkjQ HkCDidE560KWvvKcM3QGVen dDgI9Ha IJMcwNwlGhE5y0V6Ge6Xp1B vwgjaTLW2HPeyWLX7BiI7Vr DrPsS2J2AuLtw1ATOrgKjjL V5fB4Ke OIXcjrqkboaglRS8XDAnTLC ioE89bCXcXVzcVk7tb4A4v2 68VHFyHORppK12Wm1ydCjaA TBwdCBU tO8htkkbc1kkidsoKeMaASO qRRn8ISa3RXDgcHsrGuZsVW S5TmE7FYR3uNCgtU2bgSxhy rcctM8t Oyc+G28ccK5wASI7BDS3rgi mCZWdvwDjBB70HK40U0LbNa wvdGFibGU+PGRpdiBzdHlsZ P3jWgDw w4lwi2HpWCotR8NfURQjJWa eGbm0ZOOnCDM6tKH3sN8cDO CfOPtmo0K3uIF9J9NfpbTzc l8ts9jl GHXnKIwlW51noKHmx2U0USE fwJM3VOFmyFktLwAekU28Ij c+ZFXlvDfrb8OiAodhh9mfw 2xhtNt2 NqLmOGDjixCpvMahASP6x2X pJy02K04nZDlfPARqKRYzMY XmNZUmdNrepy3lqP6qJr2+P GNvbCB3 eHD8qY5kDZTyNeU9POrpZ10 6RtHbcWPbFrjay1izr8nzlK h0IuHrZWTqkiIanAxaGIF2m 5KqMn87 Z59nBJxvXLVlROGvEFIaFOH unZrohm4xiH3lMt4+PC9jb2 vxii09cA33zEU+GRAxJEC6s WxlPSdw TORdeW8qKRviBgV7EKSoQyT tdS52bJUwMCqiPs3aeVqhmP hpDD2yETTzbrrxk873AlPgz 2xkIDEw nEQrPZaqCZN9P62zo3I0VJM gDAMsVVQ6aRG9cR1tbRqahp ogbGVmdDsgdmVydGljYWwtY KaoU039 IHRvcDsnPlBhdGllbnQgTmF sWYs8F5HvCan4WPWfgJjeNT 2mhCBqZOmlAx9etUmywPffX R8pVGYy bbqec190EwWin1ifZDTeuAQ aVZbcQVF5G67tm1R5UUKbJR ZoHMK5sUR9bU5crRqnrfhwj GVmdDsg edLunScxTEybVKwmZ522RBA sdQlaXjXaahXlVJRtuDE5IK 82WG30pIDmx3O6wWN3I3CqZ GRpbmct eyselRG9YMDxORLvwD90Jr1 nmUnfQx7pDCWfZSB9GOLouJ ZoO3RooG0eIsQsRTVkQGBpD 3RleHQt ADgiX510JAreBdB7SSPslwR iZ8YnOHPmqCusMyE4k3F5Rf 4JA7U5WF40SV42aXZnn7G0g UN3O8Rb UWRvrwgoxpwgwJP8GTEhYHC qeO81Uz2cbBhpIm2pSOXaIF J9QTUumCDdS2RblE9mAdMtB DAwMDAw F3AzwGPnEXyrT235VZlqMxJ 9OSQmafRqH9IgTPVleOdsEw E4d7Z1Jd5EASj8ZJ78RQ40l OKob6O3 kKV3C8FgOLElwhsglihvxPK 6KJFcMHUvzI50Mv8zbQwvPe 9dZCUnQWI1RUDzmOYcM7Naf Y3fFmYg DEWqYVUvH6XwwYVjBTnsM91 6WYdnPdE7KPIvciGbD2GtGU SccFkgOhG2r3G1Ds6GGPOzL G08NBE5 iZJ1EX16AE59T3FbVpyjhYQ ibGU+PHRhYmxlIHdpZHRoPS qwRGPuUjBacFqpHH8vKt9rV GVyLWNv pYcyaZIyLcKlw4evCULuYRs gOL4kkKocZ8AdtMA5FVCcj3 f4Xz55P12hI8YjiAE+PGNvb HA4pLB2 aN2jCoDiAsQ4COskE129TbI czYKeMdjwm2qac6gjyWn2Gl W0SYLrgvObeFloJXY7t8EaX l77E97b IHdpZHRoPSIxNSUiIHZhbGl pno4vaR5zZw9+SCXkdEH0mB G7uI3xCgIdRkI8PFtlL898Z nRvcCIv Huzqf0jxd4yprBl2JaBeSRW dejShnHgwFZC5j0CxAq38L1 XfcScsq3UtBay4ie63lUCqp 1B3nOM4 F6KaIHSpoyttmDBucSzmYZ5 gTSKcdhnaJYRzkG3sQYCqP4 t0PfGpHgJ4BTkjY0AiarJ5I DEwcHQg VXtmELS3L50dr7P5GPWqOLW tYEW7nSP6zJ5mtBytwcpxrI VmdDsgdmVydGljYWwtYWxpZ 246IHRv mInfHFRncJ3wATScrZIvcGw sPN0yNAYokfziJy4YP4IEEh wgSEVBVEhFUjwvdGQ+PHRkI QN0qWcu WHysNCPfaS0xJHRgH4y1HtE eOjA3CPruH5XdJJQaosbmZi 92hR2ePpTmZcX0DObpO6Okv lV3EVFx mDWwVTepRXK8A28ys0S6DLK rHCAgXMJ0gOV3hN1yrOncaj ogbGVmdDsgdmVydGljYWwtY JqlB755 MBJepZkyEqDdFwP4ZeJ1IWA 1V4JcKiu7BMZtnGhfYH9lmK TdCQkfRs2hePivdCmnPP2hB TBpbjtw AVLvpA7tIQJahHKimSggXW5 cZMLvkdshq261KmGwCQM8GJ LeiTItF5LafD9eYwLaSELmI GQfK1Ey sHTlAIhmG618ZGghSyK7PIB msoJkD3IdYHXziGshCjS4v6 E2Ky9qJfBTQIAbgpuwkTY+P HRkIHN0 sBxdJPocJTPwbX0bPFFaZ4w 3IkRaLrO7ZCtrR6HpIEBeco xkYa62oB5iPpPkPdR1KNnoK 9SzbkW9 CNVtnMNwCTwuFSE3D69xw5S 7LDKbCZWtFFU6sKT1vK1dqF lnbjogbGVmdDsgdmVydGljY WwtYWxp W388BXQswFccWxBerSUoHXn vdGQ+RLYqYYC4qAtvTAxuYH GfnN8oSCEcW2c9GnWfCoY9D LxsK4Xf DKRlaeokPb18yN5jQoYgUtX 5EAqaF0ZsypE1PSQaqNJgIP nqDNS3S61lb2R8LNZcCIJnL JP9nSV1 gX6xyOyftgwjvJWcaIgodhI oeYrvQUsyWHgmY128GKTnqQ nsBx74kRTjeYlbwmZ1T7IjK jwvdHI+ HY64UMCwTJ88qVGonHKab0z yqFs5TpCoLPZeANV9nFxaMQ xeg3AwCGYhE46cgWHvd6L3S GNvbGxh qLArKkJfcBF8zE7mVEyqfhi pm2mbznldHzhlr6zsri92lR 57Z68yXMjoBTSwSJFeQQNqN HZhbGln xp8fqO4mLg2+CYSwoIM4dVU 8uH4wIuUfChA6JGqyU492Uo UsiFKdEprzj7zmf4xdiBj6C jIwJSIg vjZnvYofHWY4o3TnLg63Y75 sIHdpZHRoPSIyMCUiIHZhbG epro9abE1tQa1+RN5cc7qfx c62bM77 dHI+JFWsMPL5tCzoYPzoYNV afR4gEPihMrF7JYYnGcSmqJ 10kQExKDyzTj4xbNlweGozF R6lZUIq rhubs157JtHhn1cjHJTcrVQ oJOedKTY4Y08mt8E9DUBiLB TpINX7rZT9bG6zfDvxvbztl GVmdDsg hqMfoUtgUPdkCGxvG214ZDP seZorXjFcoAAiI0bsozFUYD 1lOjwvdGQ+ZQKxXWU2mWwiX SdwYWRk yY8xRYOvN5w9YtOfNtE5TXv tG5SigfQ2DAVhnSEdWNHcpR MEzO2yklsbh2rfegomKuTdT DAwMDt0 FCn7KSYzxYazKtFyEPA8YgL 1UTU3hZArzI9ccQtoeffrrU 9wOyc+RklOOjwvdGQ+PHRkI DG6jKem XJbrWJPtuZ1gMONxQ8b4EqX wPeB9MVjkJ1UglnP9MEVuhF GbVVRpdLYZzC3fcqjdf1joo jogIzAw NSHnKWl3JYq5IGSpaRvmNqZ dFBP2PqJ2NGM5mPSljL6mbS qajpwavQ3vYxx+TVJOOjwvd GQ+PHRk DUS8qSuaLIgjFFTdeO2uYDD zY2m5EfBxVfL7AVgqB8Ssxe R7EMDruWWgSHRhtPDNqK2vc qtlz2xu cgttTwKlYBZgSSx7KUa4VFO dzQorKbJbTDP6DcE6ACG5yZ WaiH9byTcdayckuS5yEkr+U UY4GYD8 KV53CO44X2VwZdsbcXCewJO +PHRhYmxlIHdpZHRoPScxMD YzKdByzEtkCB3wWz5dSJDnF WNvbGxh cHNl (more content not included)... [facility] Consent for Treatmenton 08-16 Consent for Treatment [id number]#1.00C D:127 [facility] Progress Note-Physicianon Progress Note-Physician [id number]#1.00 CD:127 [facility] Holter Monitoron 08-27-2021 Holter Monitor 48-HOUR HOLTER [...] BY: Robin Salazar M.D. ls Dictated: 08/26/2021 [id number] Transcribed: 08/27/2021 cc:Samir Thompson M.D. [facility] Comment on above: Result Comment: Elec tronically Signed By: Martin DAVEY, Robin J\.br\Date and Time Signed: 08/27/21 10:21 EDT Holter Monitor [id number]#1.00C D:127 [facility] Consent for Treatmenton 08-16 Consent for Treatment [id number]#1.00C D:127 [facility] Coding Summary.on 08-11-2021 Coding Summary. CD:[id number]:[id number] Gh0 bWw+PGhlYWQ+BH4FZZAzM46 ylPHgkM2PP8cHXA5RECMCTD PAYC2WET1ntOL7APsrZ8Ujx iAv YpegdWFiKO12PHf0ZOZ0qGw dBNfpxZ0qcGQnL4q4QjGqVF 07cS97WEvhRGSoUzV6ZtGwv jsgbWFy S3ysAdWloUAtOrx+PHRhYmx lIHdpZHRoPScxMDAlJyBzdH wsBN0xOm0tGUXgGRSxiVigu HNlOiBj s4oqAOAsQWaoYC8qtQbsJ6Z tkDH0XIGsi2l1He26vNF+PH WnNGF9vJgiHEpja335FpKtz 1maNLE5 fZEcESzgLZD6I53cg6Q1FIW cFNJxMKG5uWR0zP4pmYktsv ypP8UjlBHtNzR5EAT2pHDzh G6phXyg pdbdeU7nLnx+E98MWF5PVSK JXS5PNzv8D2IyYmieiAX+PC 33HMGiBF33kEUvhMWli0zpq Qc9LtFq SSCuHNG8hCydSZzwd6PiQRQ jR37qmPSga2N2YGWsdBgqwI PvBtQdbNQ6rJ8dJTotmjwhd 2hvdzsn Cjhjk0zhca74yI15C67rZSb xQTJjZVE4XZKfKIOiyGayoy 6jpQ1zCm5+PSgax3sju7jed Mu2GiOf GTBvhmAbtWmhCKL8i1IdZb8 2V7HxnFflh4NtWax7ox66kV Tro4O9iQT6TGybYKMiqW3fQ WxlZnQ6 WFJuZbFlgO53hSYbEWrqNr9 gdOixxNejOX6bWGThrlezQX SkoT4pPNFdeSYhyXtmXT8qS TBpbjtm v875VdZmDCJ1VPRjpBJlG5G bjM6pMrWbJKXpEFTnX4AefY OpWHcgK090OMmlHqC4FDRab wKhB3Sm OZVdcNoaSeW0n9S2Xi5Oq6X dqffvHGQ0QNhjPLM6ThX1Bm KhPfE4Z2UkLuw3YPUfrBuqC M3zD6Bt HDNelhndkxjywWI6EUHrFUR ihY78mRVcDDsgNw4as2M5n1 49YZRqXHBmlN85Gk7fmGvuZ TBwdCBU rT2pcrlah5nklwsjKnPwBSC cLIe5XRl8TARnrMzxLuYmKX O5AeX5WFR3hCRdnO8rgIsla nzcgH8a Oyc+Q39gtS7zRZB7BSV6bnl yCJAsluIgQK96PJ98L9JmZf wvdGFibGU+PGRpdiBzdHlsZ G2fTaOv v4lrp6YxEKnjC3GcKABvLNn mRwn5DJHzFBO4fLP4dK9jJP SeEEane5W2aBQ6R6OwmjGzq c3jr8nl KYAuSAxdW11uxNNyu9D3BNR unYU6UGBytOnfOrZzbO72Vo c+CSFufLnkh6QlSpplf7cqf 0nirRu0 RqAvMBCuktAznZaoSWU9c9Y mVu22P72nDHtgCJPjVVMiLG NuKXDanMqket1nrA2rFk1+P GNvbCB3 wKR7kF5qIMNbYvK3UNauX76 4ItKyzBGxRjlzv0uvc4lfsT f0TeYgBDFyviFezBtgEZQ6b 7XoWo40 E65zZKomNIOcWZKqTCQgCFC peCpefk4lqQ3fIu1+PC9jb2 yqlc76vK46lIM+JFBdAZR0g WxlPSdw MJTyyG0sTGimOoQ1VVKmNsS qcM01nVPiWIdnDl6tjSurdI yvOX0bEPEtrgkey701PcWho 2xkIDEw cIHzLHbuVII3O58gv2I2QYD dHISsUAE1nKD6hD7vcOkkvt ogbGVmdDsgdmVydGljYWwtY SwpV601 IHRvcDsnPlBhdGllbnQgTmF rNWq4O0ZqOmh8NWLprEhwIY 9fiVPiMUvaZk4zdYovoHydY K3dCTPs gkxkn493KfQgr1baYRDnqAL yCXtmYDG8X01vz1B8SXWwZN PtXWR5nKH0oX4ljLtgvpoiq GVmdDsg lyIosMhwDAedOZlgY466HGC quIeyXmIsfgJxKFKqrSS7IT 95QX05dCMiy4E3sYK8C3HzM GRpbmct ipybsNX7DAOsYXBuyY70Gi4 ghWoqLj1jTXUkJEC6ELNzjD UaV3SxlA8hEqMkQYHlQXPqU 3RleHQt GRjuY949XIzeCbN9GJOcmnE jA8WtSHYtyVakXsA0d1Y2Va 8QH9K2JZ71VG29tSGpr2J2h ND7Z6Bb YSXfqlbtgmqvcQI6QDYxUKA nfE13Ij2vqYinEq1hYOLwYQ F0FUMrgQPwO7PwxC1dMcZfP DAwMDAw N0GatFYeQEbzI637QXmqEaS 5YADmuhDjK4XcPXOibTnpQo S6u0S0Re4HCHl9LZ11XP70j DWbp5Z8 iDV2O7YsSGEqyaaabbhmeRN 6EATpBQRziH99Lc9ugHygGj 1dSQWtOGA2ORMvdHTvT6Nhn A7lVcYh HXYqUVNyG4HqjCRqTAvsP93 0AUsnUzD7JLLqklSzJ6JuLT OnsOdmHvV7e0J2Cf9JGAExG X13PGJ6 nSK4QZ66AO22G1XtXqghkAT ibGU+PHRhYmxlIHdpZHRoPS exBSPxIuHluDjiZC2aIn5pK GVyLWNv tZoyeOKvEbVef6zxWNFpLQs qGU8ruGmiA8WghYP9EOJqv9 k9Eo93N64xY9RriFS+PGNvb WZ2jRL9 yE3sCxRzNwB4UQmgO917SfH duEKkSvzgj0meq0popDf0Cr N9RCPudeUczYfrYYN1a5PnZ m65V19y IHdpZHRoPSIxNSUiIHZhbGl lgp3qtL0uAf1+IWQlbJI2iM S7zQ8yOjRgWbH1THqpZ956X nRvcCIv Elnrb5jfc1zljTg1ZiPqOLU dziAlcVqxQCQ5w3XqVe22B8 IodLtar5KcTip3hu14bCFmt 2U6uNE2 H0VsIEQcjxfrpZJfzWylEN6 qYSSwjiswSTFebN5vQGIwB8 b3PjWgPpB0SWecE5JhkkE8Y DEwcHQg MBjkIOO2Y58me5A8WYXrHFY sCOB8nND4sS8cxUeaemtzvG VmdDsgdmVydGljYWwtYWxpZ 246IHRv dWsjNUYabN6uIDOabIOhkMd eWZ0nSKVkjkymDa5WK3THJp wgSEVBVEhFUjwvdGQ+PHRkI HF7jVgw CFjjRUSveO6xRITjJ0t4ZjG aTlC7IObsK8VsFUCveamyXv 84hN0sCtBzNsU4IAaxJ2Xfy oL8IYQi eAZvCZgaPCL5K42ql1B5QWX hMEZcPRG8dYW3cJ1rsOwlwe ogbGVmdDsgdmVydGljYWwtY IzhL896 AZNduVhsUkWjIhQ3SxV2QSM 7F8AnPhp1RCCegDwkOZ6xhV FsSWshIs6ecRyokFjfPQ4cD TBpbjtw LYWzbW3mOQBtpPVpwFhdRV7 nPMMvuxmgf954VkQcNYB8IZ RbhCFcI5ElsI7hYsRkNIZdJ RYxZ4Pc qEFhUHbmB056VVqsWdP3QBO ezdHlB5DbONLvxQlmJyJ1l3 K9It0cVmZFIAPpkicbiPY+P HRkIHN0 yHtcOJpeDUGrdV0lVAXkL9p 6BlTzNwX6EEmwH3GzLRYojl quZe09dX4pWnPzQaL3FUjiK 6YeuhO8 CHLedTZyNNjuYOG2T61zu5S 6XUVzCPCyNOK4oKC3zE6tkF lnbjogbGVmdDsgdmVydGljY WwtYWxp J676MHGfnHgsXjRqbJEjLSw vdGQ+TBIuFGK0hIruPDnrHB SdkY5uNHAqG9e4GrHgQxE0J VadJ0Zh INRhfwkeRb31gP3lCjOjNxP 0IXhdR1YuqwR5XWNaaFUdSM ojZAJ1G03rx8X4INCkZUYsS PP4cCV5 mC0krPklrmryoANwnBxtbnB fsTlmVGcpLAfvV656WUAvsO bzLy34fWSusTkjirX8N7LuN jwvdHI+ SA50BUIcSX18nNZghOWeu5l egHh6QgIoELIqNWB1mKthNL veb8BaGDTwD33pqPZtc6J3E GNvbGxh vSQvLtHtfNH8wM2aVPeflar rq3fwhlfnFtska9soxy76tQ 80S52wPHqqKROwNMWmZKGcY HZhbGln io9spO2uDl3+NIZutLN4dCI 0xH9eLwLeZrO9QNmaM903Us VzjNEqBsxmj7ihq7hugGk7F jIwJSIg nnKyfHfiCFV0b9QaXb30M68 sIHdpZHRoPSIyMCUiIHZhbG pqkn6hgP2xIa8+UU1gg9kel u99fR85 dHI+DWRrCPM2cWylDOorHYR azB4dYHbqLdH4DGLrWuSgrS 81kDOaNGloDn0zoGadjWyrX Z7uBPCg gndyz894RoFhx9isYGKqqEG yPLhcJGF0B79nc0H8JJLyLT HxGVG9oKY9dZ0gaSynrsnxe GVmdDsg oyInlHzjQNezSMylM341BFQ mtFmqQuDfpLGjX6xxmaCZYI 1lOjwvdGQ+HRHzKSK8zJdpF SdwYWRk iB7oZHZeF4n8KyXxJlA6WYi lX0DxghW5RIXndYLaETQrnD HDzT9kgacwb8ssuwiuXrMbS DAwMDt0 SSg3KLTslSukWdEgOAY2MkZ 1RWA9eVRabD6qtCcqvsukrM 9wOyc+RklOOjwvdGQ+PHRkI PZ2pFnv IXoaFNVzrV1mEAOaR2b3RoS jMyQ9LYkmX4WgzuH9AJUvnD EhTQZwiFQBzB8gtbeti7oou jogIzAw IEFtKIv7ZHp6BMYgpQrsHwA kKGC0FtB2EZO6lKKqoI9ozY qhqwiuaQ7rIzg+TVJOOjwvd GQ+PHRk ZVF6tSfqGUmcGVVceP5rNWJ tZ2n8UqEgMaD3TBwoL1Zpht S1GBWrnJLsAGQzxNGByP1to lprt1ve wprfHjZkDPBkUSj3GJl1USK zdDdoObWxSZZ1PaE9LXE9eE HqhL0hyAouqskjoW0aRgq+U QQ0HMC4 ZT66GM93E3PeJioacTPsjTB +PHRhYmxlIHdpZHRoPScxMD TtKnHvnGnuZA6nOr4bAWHbD WNvbGxh cHNl (more content not included)... [facility] Stress EKG Tracingson 2021 Stress EKG Tracings [id number]#1.00 CD:127 [facility] Consent for Treatmenton 07-18 Consent for Treatment [id number]#1.00C D:127 Normal [facility] Coding Summary.on 08-03-2021 Coding Summary. CD:[id number] Gh0 bWw+PGhlYWQ+EZ5ISYLgE47 nbJFyiW2MO4sCXJ2BBLCLQI UURN2UYF4caOW9SKqgI3Gzs iAv LxuylCWkIA55OPs5UIP8qKp tZRdqhB8krLCqX7x2GmCgXF 35zD78IMwgTJEkLbV5AkLxh jsgbWFy Y2fcByLeoDJeZsi+PHRhYmx lIHdpZHRoPScxMDAlJyBzdH pyUL9tAo8xWXAeUHIqkThtq HNlOiBj f7xxGXIySMltDU0kwTzeZ2H rtEE9JAApl2y5Nb90iCZ+PH KrSAD0rKzgQTxvt681UdQyn 9ghIMQ0 sOGnFPynSGL8D09wx5T6HAB qEKCbRMD6lII2wD3ppMqbpp nyD9LcyPTzElX7ODN7zSPuo M4eyWqa mhawmD3qYxd+Y01HUO6MMTV EYV4FLba4U5EoNdnvaHQ+PC 79EWXnTF67tKLaxHQgp2bbq Ba0JeJr RFLuJNL9kUljDMebi0RbVGE qA90awDXel3C7GOPgaRbrjW PsWuQbpXU9jG3tWQhhxaibw 2hvdzsn Mtdom9rarj30jG50X64yXQj aBCYpGTV2AVHnUBUyjResjh 0teW1zAa1+JLnoz5vcw6eex Kg5RxOl YQCsdbGfzEynOIK8y7QlAl5 2W2YuzZuxo3FcPsr9md25vB Ysj4M3sII7IWzbQURhyI5oK WxlZnQ6 JJMtLeTsyN05qJTaGUaqNo6 krWrtaHecKC8iFHYrvffkNQ TbjV2eTMKmwWDahUkgQI9iJ TBpbjtm z759KtPgFXK1DIVcnLXjU8Q thW1fXjLzJFUmHCYgL8CflV AkKJvuB232VYjtDmQ7QIUre lZpF8Ap OYWveMgfIoC9b0I8Tj0Pm2Q afswfLXP4PSrvAUN0KlR0Cf RaDcC9R7GoBmg2RXFwyRpsK L5qB4Bx WPMcndwqrssphBX5RBUrKBW apG68xCZaONrdRa9wy0K6r9 54CDTyPLCkmN11Dg9xlCkwC TBwdCBU wE0yhwstl4gmotlyIjQnUDB pDUb7XMq7PORhyRhuSeGeTB Y3UwN8KKL0cXSsqV0iaAofv stlaB8j Oyc+V08coX5tWMW8LST6hnc fZLKuwnHdXM25LF47C4AjVy wvdGFibGU+PGRpdiBzdHlsZ I4oAxKa s7xze9PpUOidY5MpVYQlPEj pEhx9KRVnCNC6mBL7hG9pXG CeCAvaz5L8cIP6P3KltgAss v5lt8tx HBYiRJfxU40xgXRdw5Z0LRD pvTQ9ESZsfNiuXlVcgA79Ib c+KZWmhAzpw1GfLedfk4qft 1gviUq4 ScSvJISkdhTedJnmURK1g3I iKd13B11iZGyrSBEoTZFbJZ KxVGKvvJeuoa3wcM0hKb5+P GNvbCB3 rSC1tS3cIHGsFfN9HBzuL86 8DgFwhEQqChgqq8zpi0hqdV y9NgXeVHMcbvWhdQndBSR0a 4NxVw82 U97pHVjhGNGbHSNrMWBtSNM gsXahvm3ukW9qVi6+PC9jb2 jene73tF45fAH+MDIuGVD5p WxlPSdw JKBexX5xFNqsXzG5BVLjCaR dnL15gGObUAgwYa3nqZcyzR bhLD4yTJTudfrfj445HhTfb 2xkIDEw eUGoYDmhPGZ7Y33xn7Z9JBK yAWSdJQP7rZN4cE8pkNxpcq ogbGVmdDsgdmVydGljYWwtY CbkV815 IHRvcDsnPlBhdGllbnQgTmF fJCm7D8BaSuk2CHVpyNgqMQ 4tqCWfMEerKd0soWoxrVbjW L0wESVl fgzfv638NqGmp5lsBTDhzDJ gKChmXTQ7U23fp9Z7NBLgKX CrZOM3zZE3qA5wpHlgepvhz GVmdDsg mhCdcCibNEysIDtdS060WFU piRsgQsJbuoJkHURpkSP7RF 41RJ11nRIln9B7hFF2A9CsH GRpbmct nbgsyCX7UOAcUUDdeL75Cr9 raWxlSj8aCWQnHRB1KXGgeB OqZ7SthW5wWmCsTHHeQQDyV 3RleHQt PCxiA146RXabIpD9YLOzoqZ gN0HkACUkcGizLwU6c4B0Cj 2LF8E0SD31WM03gPXla2Q3i IT0W9Ac JMYmbjaztputcOU5IQNlMJH ozX20Is5moKjmQz9oBMJiOL D7ZSUgwVKvA9FewI7gWxRaA DAwMDAw U3GrtYSsOLfeJ375MOvnYfF 1UPWzwoYrZ7JuVYTznRekRn G0n0T8Ub9YUQi1BV38CQ52w EMbm2M6 rYX9U9CrHVDsoujukmixaLL 3OTZjSOKrfC69Zl2kyLvpSd 6nFISoLFN1ZZEeyJWhI6Oix V6vTbGk AFMrJXCrI1EvcTDjUIgtT52 8JEteKtP9LATzdfEnX6GmYY PfsCluEbC4t9C0Ok9XZEArP A64WQQ6 nTH9UB75NJ50U7ScWvimeIA ibGU+PHRhYmxlIHdpZHRoPS zaMZGzPxHopEsvVF0cUa4fG GVyLWNv wEkreLEiYaSdl6icOVYuJVi jDL1mlUqtX9NqgLH4LGTvh0 e3Oa61X37jZ4GshQI+PGNvb IV0sKO2 xI0pOdDfIcQ0KJfyL037YpY ofJGcFcsnc0oev3aqnJg4Ih P6OLZllqElwYuaQOL7k2UgD d60P92t IHdpZHRoPSIxNSUiIHZhbGl naz8epW2rPi7+EQSuvLV6zW G4eY5xQqLrDeV9LJtqX457L nRvcCIv Fdkac3snt9uxyJq4KlYdVVJ gstZitRxwRUE7e2EhTa83X7 FrmVuil4SoXcq2xi21iIExi 2M3kIU7 C7PwVROdgwuhhQNwoUegJG8 zMOQjtkzuUWGwrI9rBBJsN3 z0AbNcIfT5EBrwA4MmcwJ0D DEwcHQg HAkdDDM1C37zr8Q8WLCpDJE tNVU8oAN9yH3ylRbxrjlirG VmdDsgdmVydGljYWwtYWxpZ 246IHRv pDxiXCPnlU4kMOPipYGyqVh mGV8aZAPzsgplFq9OE4TTNw wgSEVBVEhFUjwvdGQ+PHRkI NH7gYeh ERxdGUWppB6yQFWmX6c2VgY jPiJ5LDwuJ1NjYGBunpsyGx 69mO6cZeHeFcE9XHilV6Zov gD1HVPk aWNvDSesMLS2E81yf7E6ZZO lQYRmGGT3qLR1qQ4sgHctpd ogbGVmdDsgdmVydGljYWwtY JedF525 YXZkhBoaVkEbBwU1UnV9QFM 0Z9HpJjh9UETgsKawRH9hcM WhHAhnWu8jfVibnTyeVG1qT TBpbjtw YICumR9cRFUsmEZskRhpEH0 qVZVbhlyio431GcMkYAU6YT BqtSWdB4JniG9tYiVrBEUjF YAjE9Vf uONqINktZ463OOqaPpN8VNX mgrAiC6KzCILfsYkvDvI5v7 N3Tn5zQuAMNNNmmmgddUR+P HRkIHN0 sFrzZNioULPwaU1eJTTuP4m 3NzGoPmN1DXffH1DdHCDust emZv06qG1xTlAgXfE0QYfeU 9PtnmT5 SNIlmNKqUTcfDRM4F56rb5V 6GRGaBWFdOPE7pZG6kZ0efV lnbjogbGVmdDsgdmVydGljY WwtYWxp M040UKNucJckDtLllSEdILn vdGQ+KFAeOJP4hWooPPxdMB HxyV1bWPIdY9d2ZePvQbS5J TdvX8Lj ABCklalcZi84sN5eThLcKrS 1ZZebA5HuimV1QUOvlCVrTM xhCJW5H56np7D6VBYhXIDwB HZ5uBN1 aK7jaGonskwxdXDvlAxsrfQ xqDphDCnqOQamW076ADMstU vzTw19sQJttYlwwhD7O7ArR jwvdHI+ YT20KJKkXW24uVSvtDOqe0e xtCd5TnXqCUQwKVI0xHlfUQ vtp2LnBQXpV68qvDWzk1E2J GNvbGxh fVJvUwMfbLG6pM9oBVwtggd tm9fzqynkAdbbo3fnzz89jE 34H14iKKpvWPZsJGUpBZUeM HZhbGln qi3zzV5kVs4+AUJmnOA6vEM 8sQ3yGxYqGpB5UMjfF038Iw MkwYFdXtbmp8soj9hmrBk8J jIwJSIg kzQiwPvuHOV7g0FfOl34X34 sIHdpZHRoPSIyMCUiIHZhbG eufl3ayX3jIy0+ZH0ho2buv w40iD93 dHI+WAVbHHR8eRyiRYscVJF jcW2tVVlsByL6HGRcKiQtsM 62uECdTCxkHi7hjCuonErbP J6nHXOn earqk191ErRur8ppSYGldFG jCMvkIJT7H65fj3B4ACJnEL JsKJW6aPY8gF9xiWttfkuaf GVmdDsg tpNmnPhyBAleXEhyI094FSQ jxRdbGmWncGXvU2wbwpRYTY 1lOjwvdGQ+DMDgIMC0pKgmZ SdwYWRk jH4gFCXnQ6x2MfVpSjO7CPg bK4HokoU7MISvwEFyXDUjtL VEuX0jufrya5nxfkfeIlDrF DAwMDt0 GTc7CHOipNhaKiOsKCY1ZdR 1UGK8kJFpqO0faDicwqdrqO 9wOyc+RklOOjwvdGQ+PHRkI EC8qQiz BIggSAXmwG8oHCHpE6d4AiT wNtJ2CWhwR9VouoN3PRSjiO XwWIXjfOAQtU1wmihfi4avx jogIzAw NTIcAUc8WJm7CKWetCciUfN xYYL1GbA6OYH6kTSadQ0dyC rnvyrquJ2hDwu+TVJOOjwvd GQ+PHRk TJY2nNsvNCffGHBjaJ6qUIX iC5k9IdKzYaQ8MHnlB2Lkbd A7ZDXxtNKuNPUpmTDBiB7yk doym9xa ytznVxPrHBOlHXz9SHp6VHA tbLsoMbRtAPR2JiW6YNW3cX AlvP7kqEyelnmfuD8hZbz+U IL3CYX1 JN69QQ82F0JkQcmzrLYbfZP +PHRhYmxlIHdpZHRoPScxMD NjIwZdeFuhXF5wJr9zGUIiS WNvbGxh Nl (more content not included)... [facility] Progress Note-Physicianon Progress Note-Physician [id number]#1.00 CD:127 Normal [facility] Heart and Vascular Office/Cl inic Noteon 07-27-2021 [...] rate increases with exercise. She presented to [facility] ER 2 weeks ago for suspected [...] after patient or guardian consented to allow [employer] to record this visit. 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 ANAMARIA: [...] Never [place] (more content not included)... [facility] Comment on above: Result Comment: Elec tronically Signed By: Jay DAVEY, Samir Rivera\.br\Date and Time Signed: 07/27/21 10:44 EDT\.br\Electronically Co-Signed By: Rissa Arias.br\Date and Time Co-Signed: 07/24/21 16:24 EDT Consent for Treatmenton Consent for Treatment [id number]#1.00C D:127 [facility] Referrals Officeon 2 Referrals Office [id number]#1.00 CD:127 [facility] BASIC METABOLIC PANELon 04-19 Anion gap [Moles/Vol] 8 mmol/L Low 9 - 17 mmol/L [place] Bun/Cre Ratio NOT REPORTED [facility] [place] [place] Calcium [Mass/Vol] 9.2 mg/dL 8.6 - 10. 4 mg/dL [place] Chloride [Moles/Vol] 105 mmol/L 98 - 10 7 mmol/L [place] CO2 [Moles/Vol] 26 mmol/L 20 - 31 mmol/L [place] Creatinine [Mass/Vol] 0.67 mg/dL 0.5 - 0.9 mg/dL [place] GFR >60 >60 mL/min [place] GFR Non- >60 >60 mL/min [place] GFR/1.73 sq M predicted among non-blacks MDRD (S/P/Bld) [Vol rate/Area] NOT REPORTED [place] GFR/1.73 sq M predicted among non-blacks MDRD (S/P/Bld) [Vol rate/Area] [place] Comment on above: Average GFR for 20-2 9 years old: 116 mL/min/1.73sq m Chronic Kidney Disease: <60 mL/min/1.73sq m Kidney failure: <15 mL/min/1.73sq m eGFR calculated using average adult body mass. Additional eGFR calculator available at: http://www.MideoMe/multiple_crcl_2012.htm Glucose [Mass/Vol] 99 mg/dL 70 - 99 mg/dL [place] Interpretation and review of laboratory results Abnormal [place] Potassium [Moles/Vol] 4.5 mmol/L 3.7 - 5.3 mmol/L [place] Sodium [Moles/Vol] 139 mmol/L 135 - 144 mmol/L [place] Urea nitrogen [Mass/Vol] 5 mg/dL Low 6 - 20 mg/dL [place] Basic Metabolic Profon 05-08 (cont.) Normal [facility] Comment on above: Result Comment: Aver age GFR for 20-29 years old: 116 mL/min/1.73sq m Chronic Kidney Disease: <60 mL/min/1.73sq m Kidney failure: <15 mL/min/1.73sq m eGFR calculated using average adult body mass. Additional eGFR calculator available at: http://www.Snaapiq.BitPass/multiple_crcl_2012.htm Performed By: #### C BC, PT, PTT, BMP #### [facility] [address] [place] [id number] Liquefier: Casey Marques MD #### ANICOT #### [facility] [address] [place] [address] Liquefier: Adolph Diaz MD Anion gap [Moles/Vol] 8 mmol/L Low 9-17 [facility] Comment on above: Performed By: #### C BC, PT, PTT, BMP #### [employer] [facility] [address] [place] [phone] Liquefier: Casey Marques MD #### ANICOT #### [facility] [address] [place] [address] Liquefier: Adolph Diaz MD Calcium [Mass/Vol] 9.2 mg/dL Normal 8.6-10.4 [facility] Comment on above: Performed By: #### C BC, PT, PTT, BMP #### [facility] [address] [place] [phone] Liquefier: Casey Marques MD #### ANICOT #### [facility] [address] [place] [address] Liquefier: Adolph Diaz MD Chloride [Moles/Vol] 105 mmol/L Normal 98-107 [facility] Comment on above: Performed By: #### C BC, PT, PTT, BMP #### [facility] [address] [place] [phone] Liquefier: Casey Marques MD #### ANICOT #### [facility] [address] [place] [address] Liquefier: Adolph Diaz MD CO2 [Moles/Vol] 26 mmol/L Normal 20-31 [facility] Comment on above: Performed By: #### C BC, PT, PTT, BMP #### [address] [address] Liquefier: Casey Marques MD #### ANICOT #### [facility] [address] [place] [address] Liquefier: Adolph Diaz MD Creatinine [Mass/Vol] 0.67 mg/dL Normal 0.50-0.90 [facility] Comment on above: Performed By: #### C BC, PT, PTT, BMP #### [address] [id number] Liquefier: Casey Marques MD #### ANICOT #### [facility] [address] [place] [phone] Liquefier: Adolph Diaz MD GFR, Amer >60 Normal >60 [facility] Comment on above: Performed By: #### C BC, PT, PTT, BMP #### [address] [address] Liquefier: Casey Marques MD #### ANICOT #### [facility] [address] [place] [address] Liquefier: Adolph Diaz MD GFR,non Amer >60 Normal >60 [facility] Comment on above: Performed By: #### C BC, PT, PTT, BMP #### [facility] [address] [place] [phone] Liquefier: Casey Marques MD #### ANICOT #### [facility] [address] [place] [address] Liquefier: Adolph Diaz MD Glucose [Mass/Vol] 99 mg/dL Normal 70-99 [facility] Comment on above: Performed By: #### C BC, PT, PTT, BMP #### [address] [address] Liquefier: Casey Marques MD #### ANICOT #### [facility] [address] [place], [place] [id number] Liquefier: Adolph Diaz MD Potassium [Moles/Vol] 4.5 mmol/L Normal 3.7-5.3 [facility] Comment on above: Performed By: #### C BC, PT, PTT, BMP #### [address] [phone] Liquefier: Casey Marques MD #### ANICOT #### [address] [phone] Liquefier: Adolph Diaz MD Sodium [Moles/Vol] 139 mmol/L Normal 135-144 [facility] Comment on above: Performed By: #### C BC, PT, PTT, BMP #### [address] [address] Liquefier: Casey Marques MD #### ANICOT #### [address] [phone] Liquefier: Adolph Diaz MD Urea nitrogen [Mass/Vol] 5 mg/dL Low 6-20 [facility] Comment on above: Performed By: #### C BC, PT, PTT, BMP #### [address] [address] Liquefier: Casey Marques MD #### ANICOT #### [facility] [address] [place] [phone] Liquefier: Adolph Diaz MD BUN/CRE Ratio NOT REPORTED Normal - [facility] Comment on above: Performed By: #### C BC, PT, PTT, BMP #### [facility] [address] [place], [place] [phone] Liquefier: Casey Marques MD #### ANICOT #### [facility] [address] [place], [place] [phone] Liquefier: Adolph Diaz MD Staging: NOT REPORTED Normal [facility] Comment on above: Performed By: #### C BC, PT, PTT, BMP #### [facility] [address] [place], [place] [phone] Liquefier: Casey Marqeus MD #### ANICOT #### [facility] [address] [place] [address] Liquefier: Adolph Diaz MD CBC WITH AUTO DIFFERENTIALon 05-08-2020 Basophils (Bld) [#/Vol] 0.06 10*3/uL [place], [place] Basophils/100 WBC (Bld) 1 % 0 - 2 % [place] Differential Type NOT REPORTED [place] Eosinophils (Bld) [#/Vol] 0.35 10*3/uL [place] Eosinophils/100 WBC (Bld) 3 % 1 - 4 % [place] Erythrocyte distribution width (RBC) [Ratio] 14.7 % High 11.8 - 14.4 % [place] Hematocrit (Bld) [Volume fraction] 38.4 % 36.3 - 47.1 % [place] Hemoglobin (Bld) [Mass/Vol] 12.0 g/dL 11.9 - 15.1 g/dL [place] Immature granulocytes (Bld) [#/Vol] 1 % High 0 [place] Immature granulocytes (Bld) [#/Vol] 0.06 10*3/uL [place] Interpretation and review of laboratory results Abnormal [place] Lymphocytes (Bld) [#/Vol] 2.21 10*3/uL [place] Lymphocytes/100 WBC (Bld) 21 % Low 24 - 43 % [place] MCH (RBC) [Entitic mass] 26.5 pg 25.2 - 33.5 pg [place] MCHC (RBC) [Mass/Vol] 31.3 g/dL 28.4 - 34.8 g/dL [place] MCV (RBC) [Entitic vol] 85.0 fL 82.6 - 102.9 fL [place] Monocytes (Bld) [#/Vol] 0.71 10*3/uL [place] Monocytes/100 WBC (Bld) 7 % 3 - 12 % [place] Platelet mean volume (Bld) [Entitic vol] 8.6 fL 8.1 - 13.5 fL [place] Platelets (Bld) [#/Vol] 256 10*3/uL [place] Platelets (Bld) [#/Vol] NOT REPORTED [place] RBC (Bld) [#/Vol] 4.52 10*6/uL 3.95 - 5.1 1 m/uL [place] RBC morphology finding Nom (Bld) ANISOCYTOSIS PRESENT [place] Segmented neutrophils/100 WBC (Bld) 67 % High 36 - 65 % [place] Segs Absolute 7.30 [place] WBC (Bld) [#/Vol] 10.7 10*3/uL [place] WBC (Bld) [#/Vol] 0.0 10*3/uL 0.0 per 10 0 WBC [place] WBC Morphology NOT REPORTED [place] CBC with Diffon 05-08-2020 Abs. Basophil 0.06 k/uL Normal 0.00-0.20 [facility] Comment on above: Performed By: #### C BC, PT, PTT, BMP #### [facility] [place] [address] Liquefier: Casey Marques MD #### ANICOT #### [facility] [address] [place], [place] [id number] Liquefier: Adolph Diaz MD Abs.Imm.Granulocyte 0.06 k/uL Normal 0.00-0.30 [facility] Comment on above: Performed By: #### C BC, PT, PTT, BMP #### [place] [address] Liquefier: Casey Marques MD #### ANICOT #### [address] [id number] Liquefier: Adolph Diaz MD Abs.Neutrophil (Seg) 7.30 k/uL Normal 1.50-8.10 [facility] Comment on above: Performed By: #### C BC, PT, PTT, BMP #### [place] [address] Liquefier: Casey Marques MD #### ANICOT #### [address] [address] Liquefier: Adolph Diaz MD Basophils/100 WBC (Bld) 1 % Normal 0-2 [facility] Comment on above: Performed By: #### C BC, PT, PTT, BMP #### [place] [address] Liquefier: Casey Marques MD #### ANICOT #### [facility] [address] [place], [place] [id number] Liquefier: Adolph Diaz MD Eosinophils (Bld) [#/Vol] 0.35 10*3/uL Normal 0.00-0.44 [facility] Comment on above: Performed By: #### C BC, PT, PTT, BMP #### [place] [address] Liquefier: Casey Marques MD #### ANICOT #### [facility] [address] [place] [address] Liquefier: Adolph Diaz MD Eosinophils/100 WBC (Bld) 3 % Normal 1-4 [facility] Comment on above: Performed By: #### C BC, PT, PTT, BMP #### [address] [address] Liquefier: Casey Marques MD #### ANICOT #### [facility] [address] [place], [place] [id number] Liquefier: Adolph Diaz MD Erythrocyte distribution width (RBC) [Ratio] 14.7 % High 11.8-14.4 [facility] Comment on above: Performed By: #### C BC, PT, PTT, BMP #### [address] [id number] Liquefier: Casey Marques MD #### ANICOT #### [facility] [address] [place] [address] Liquefier: Adolph Diaz MD Hematocrit (Bld) [Volume fraction] 38.4 % Normal 36.3-47.1 [facility] Comment on above: Performed By: #### C BC, PT, PTT, BMP #### [address] [id number] Liquefier: Casey Marques MD #### ANICOT #### [facility] [address] [place] [address] Liquefier: Adolph Diaz MD Hemoglobin (Bld) [Mass/Vol] 12.0 g/dL Normal 11.9-15.1 [facility] Comment on above: Performed By: #### C BC, PT, PTT, BMP #### [facility] [employer] [address] [place] [id number] Liquefier: Casey Marques MD #### ANICOT #### [facility] [address] [place] [address] Liquefier: Adolph Diaz MD Immature granulocytes/100 WBC (Bld) 1 % High 0 [facility] Comment on above: Performed By: #### C BC, PT, PTT, BMP #### [address] [address] Liquefier: Casey Marques MD #### ANICOT #### [facility] [address] [place], [place] [id number] Liquefier: Adolph Diaz MD Lymphocytes (Bld) [#/Vol] 2.21 10*3/uL Normal 1.10-3.70 [facility] Comment on above: Performed By: #### C BC, PT, PTT, BMP #### [address] [address] Liquefier: Casey Marques MD #### ANICOT #### [facility] [address] [place] [address] Liquefier: Adolph Diaz MD Lymphocytes/100 WBC (Bld) 21 % Low 24-43 [facility] Comment on above: Performed By: #### C BC, PT, PTT, BMP #### [address] [address] Liquefier: Casey Marques MD #### ANICOT #### [facility] [address] [place], [place] [id number] Liquefier: Adolph Diaz MD MCH (RBC) [Entitic mass] 26.5 pg Normal 25.2-33.5 [facility] Comment on above: Performed By: #### C BC, PT, PTT, BMP #### [address] [address] Liquefier: Casey Marques MD #### ANICOT #### [facility] [address] [place], [place] [id number] Liquefier: Adolph Diaz MD MCHC (RBC) [Mass/Vol] 31.3 g/dL Normal 28.4-34.8 [facility] Comment on above: Performed By: #### C BC, PT, PTT, BMP #### [address] [address] Liquefier: Casey Marques MD #### ANICOT #### [facility] [address] [place] [address] Liquefier: Adolph Diaz MD MCV (RBC) [Entitic vol] 85.0 fL Normal 82.6-102.9 [facility] Comment on above: Performed By: #### C BC, PT, PTT, BMP #### [address] [address] Liquefier: Casey Marques MD #### ANICOT #### [facility] [address] [place] [address] Liquefier: Adolph Diaz MD Monocytes (Bld) [#/Vol] 0.71 10*3/uL Normal 0.10-1.20 [facility] Comment on above: Performed By: #### C BC, PT, PTT, BMP #### [address] [address] Liquefier: Casey Marques MD #### ANICOT #### [facility] [address] [place] [address] Liquefier: Adolph Diaz MD Monocytes/100 WBC (Bld) 7 % Normal 3-12 [facility] Comment on above: Performed By: #### C BC, PT, PTT, BMP #### [address] [address] Liquefier: Casey Marques MD #### ANICOT #### [facility] [address] [place], [place] [id number] Liquefier: Adolph Diaz MD Neutrophil (Seg) 67 % High 36-65 [facility] Comment on above: Performed By: #### C BC, PT, PTT, BMP #### [address] [address] Liquefier: Casey Marques MD #### ANICOT #### [facility] [address] [place], [place] [id number] Liquefier: Adolph Diaz MD NRBC Automated 0.0 per 100 WBC Normal 0.0 [facility] Comment on above: Performed By: #### C BC, PT, PTT, BMP #### [address] [address] Liquefier: Casey Marques MD #### ANICOT #### [facility] [address] [place] [address] Liquefier: Adolph Diaz MD Platelet mean volume (Bld) [Entitic vol] 8.6 fL Normal 8.1-13.5 [facility] Comment on above: Performed By: #### C BC, PT, PTT, BMP #### [address] [address] Liquefier: Casey Marques MD #### ANICOT #### [facility] [address] [place], [place] [id number] Liquefier: Adolph Diaz MD Platelets (Bld) [#/Vol] 256 10*3/uL Normal 138-453 [facility] Comment on above: Performed By: #### C BC, PT, PTT, BMP #### [address] [address] Liquefier: Casey Marques MD #### ANICOT #### [facility] [address] [place], [place] [id number] Liquefier: Adolph Diaz MD RBC (Bld) [#/Vol] 4.52 10*6/uL Normal 3.95-5.11 [facility] Comment on above: Performed By: #### C BC, PT, PTT, BMP #### [address] [address] Liquefier: Casey Marques MD #### ANICOT #### [facility] [address] [place] [address] Liquefier: Adolph Diaz MD RBC morphology finding Nom (Bld) ANISOCYTOSIS PRESENT Normal [facility] Comment on above: Performed By: #### C BC, PT, PTT, BMP #### [address] [address] Liquefier: Casey Marques MD #### ANICOT #### [facility] [address] [place] [address] Liquefier: Adolph Diaz MD WBC (Bld) [#/Vol] 10.7 10*3/uL Normal 3.5-11.3 [facility] Comment on above: Performed By: #### C BC, PT, PTT, BMP #### [address] [address] Liquefier: Casey Marques MD #### ANICOT #### [facility] [address] [place] [address] Liquefier: Adolph Diaz MD Auto Diff Performed NOT REPORTED Normal [facility] Comment on above: Performed By: #### C BC, PT, PTT, BMP #### [address] [address] Liquefier: Casey Marques MD #### ANICOT #### [facility] [address] [place] [address] Liquefier: Adolph Diaz MD Platelet Estimate NOT REPORTED Normal [facility] Comment on above: Performed By: #### C BC, PT, PTT, BMP #### [facility] [address] [place], [place] [id number] Liquefier: Casey Marques MD #### ANICOT #### [facility] [address] [place] [address] Liquefier: Adolph Diaz MD WBC Morphology NOT REPORTED Normal [facility] Comment on above: Performed By: #### C BC, PT, PTT, BMP #### [facility] [address] [place] [address] Liquefier: Casey Marques MD #### ANICOT #### [facility] [address] [place] [address] Liquefier: Adolph Diaz MD Surgical Pathologyon Surgical Pathology Report -- Diagnosis -- STOMACH, [...] with no areas of granularity or masses. Night Auditor sections 1cs. tm Microscopic Description Sections of gastric mucosa show increased lymphocytes and plasma cells in the lamina propria. There is no evidence of acute inflammation, intestinal metaplasia or dysplasia. There is no evidence of organisms suspicious for Helicobacter with the routine H&E stains. SURGICAL PATHOLOGY CONSULTATION Patient Name: SANDERS, JAZ Wright [facility] Rec: [id number] Path Number: [id number] [facility] [employer] [facility] PATHOLOGISTS [facility] ANATOMIC PATHOLOGY [facility]. [place], [place] [address] [place], [place] Basic Metabolic Panelon 04-19 Anion gap [Moles/Vol] 13 mmol/L 9 - 17 mmol/L [place] Bun/Cre Ratio NOT REPORTED [place] Calcium [Mass/Vol] 9.4 mg/dL 8.6 - 10. 4 mg/dL [place] Chloride [Moles/Vol] 104 mmol/L 98 - 10 7 mmol/L [place] CO2 [Moles/Vol] 23 mmol/L 20 - 31 mmol/L [place] Creatinine [Mass/Vol] 0.73 mg/dL 0.5 - 0.9 mg/dL [place] GFR >60 >60 mL/min [place] GFR Non- >60 >60 mL/min [place] GFR/1.73 sq M predicted among non-blacks MDRD (S/P/Bld) [Vol rate/Area] NOT REPORTED [place] GFR/1.73 sq M predicted among non-blacks MDRD (S/P/Bld) [Vol rate/Area] [place] Comment on above: Average GFR for 20-2 9 years old: 116 mL/min/1.73sq m Chronic Kidney Disease: <60 mL/min/1.73sq m Kidney failure: <15 mL/min/1.73sq m eGFR calculated using average adult body mass. Additional eGFR calculator available at: http://www.Snaapiq.BitPass/multiple_crcl_2012.htm Glucose [Mass/Vol] 98 mg/dL 70 - 99 mg/dL [place] Potassium [Moles/Vol] 4.1 mmol/L 3.7 - 5.3 mmol/L [place] Sodium [Moles/Vol] 140 mmol/L 135 - 144 mmol/L [place] Urea nitrogen [Mass/Vol] 6 mg/dL 6 - 20 mg/dL [facility], [place] Basic Metabolic Profon 05-07 (cont.) Normal [facility] Comment on above: Result Comment: Aver age GFR for 20-29 years old: 116 mL/min/1.73sq m Chronic Kidney Disease: <60 mL/min/1.73sq m Kidney failure: <15 mL/min/1.73sq m eGFR calculated using average adult body mass. Additional eGFR calculator available at: http://www.MideoMe/multiple_crcl_2012.htm Performed By: #### C BC, BMP #### [address] [address] Liquefier: Casey Marques MD Anion gap [Moles/Vol] 13 mmol/L Normal 9-17 [facility] Comment on above: Performed By: #### C ABHAY, BMP #### [facility] [employer] [address] [place] [phone] Liquefier: Casey Marques MD Calcium [Mass/Vol] 9.4 mg/dL Normal 8.6-10.4 [facility] Comment on above: Performed By: #### C BC, BMP #### [facility] [employer] [address] [place] [address] Liquefier: Casey Marques MD Chloride [Moles/Vol] 104 mmol/L Normal 98-107 [facility] Comment on above: Performed By: #### C BC, BMP #### [facility] [employer] [address] [place] [address] Liquefier: Casey Marques MD CO2 [Moles/Vol] 23 mmol/L Normal 20-31 [facility] Comment on above: Performed By: #### C BC, BMP #### [facility] [employer] [address] [place] [address] Liquefier: Casey Marques MD Creatinine [Mass/Vol] 0.73 mg/dL Normal 0.50-0.90 [facility] Comment on above: Performed By: #### C BC, BMP #### [facility] [address] [place] [phone] Liquefier: Casey Marques MD GFR, Amer >60 Normal >60 [facility] Comment on above: Performed By: #### C BC, BMP #### [facility] [address] [place] [phone] Liquefier: Casey Marques MD GFR,non Amer >60 Normal >60 [facility] Comment on above: Performed By: #### C BC, BMP #### [facility] [employer] [address] [place] [phone] Liquefier: Casey Marques MD Glucose [Mass/Vol] 98 mg/dL Normal 70-99 [facility] Comment on above: Performed By: #### C BC, BMP #### [facility] [employer] [address] [place] [phone] Liquefier: Casey Marques MD Potassium [Moles/Vol] 4.1 mmol/L Normal 3.7-5.3 [facility] Comment on above: Performed By: #### C BC, BMP #### [facility] [employer] [address] [place] [phone] Liquefier: Casey Marques MD Sodium [Moles/Vol] 140 mmol/L Normal 135-144 [facility] Comment on above: Performed By: #### C BC, BMP #### [facility] [employer] [address] [place] [phone] Liquefier: Casey Marques MD Urea nitrogen [Mass/Vol] 6 mg/dL Normal 6-20 [facility] Comment on above: Performed By: #### C BC, BMP #### [facility] [employer] [address] [place] [phone] Liquefier: Casey Marques MD BUN/CRE Ratio NOT REPORTED Normal 01-05 [facility] Comment on above: Performed By: #### C BC, BMP #### [address] [address] Liquefier: Casey Marques MD Staging: NOT REPORTED Normal [facility] Comment on above: Performed By: #### C BC, BMP #### [facility] [address] [place] [phone] Liquefier: Casey Marques MD CBCon 05-07-2020 Erythrocyte distribution width (RBC) [Ratio] 14.4 % Normal 11.8-14.4 [facility] Comment on above: Performed By: #### C BC, BMP #### [address] [address] Liquefier: Casey Marques MD Hematocrit (Bld) [Volume fraction] 40.4 % Normal 36.3-47.1 [facility] Comment on above: Performed By: #### C BC, BMP #### [address] [address] Liquefier: Casey Marques MD Hemoglobin (Bld) [Mass/Vol] 12.6 g/dL Normal 11.9-15.1 [facility] Comment on above: Performed By: #### C BC, BMP #### [facility] [address] [place] [phone] Liquefier: Casey Marques MD MCH (RBC) [Entitic mass] 26.1 pg Normal 25.2-33.5 [facility] Comment on above: Performed By: #### C BC, BMP #### [facility] [address] [place] [address] Liquefier: Casey Marques MD MCHC (RBC) [Mass/Vol] 31.2 g/dL Normal 28.4-34.8 [facility] Comment on above: Performed By: #### C BC, BMP #### [facility] [address] [place] [address] Liquefier: Casey Marques MD MCV (RBC) [Entitic vol] 83.8 fL Normal 82.6-102.9 [facility] Comment on above: Performed By: #### C BC, BMP #### [facility] [address] [place] [phone] Liquefier: Casey Marques MD NRBC Automated 0.0 per 100 WBC Normal 0.0 [facility] Comment on above: Performed By: #### C BC, BMP #### [facility] [address] [place] [phone] Liquefier: Casey Marques MD Platelet mean volume (Bld) [Entitic vol] 8.7 fL Normal 8.1-13.5 [facility] Comment on above: Performed By: #### C BC, BMP #### [facility] [address] [place] [phone] Liquefier: Casey Marques MD Platelets (Bld) [#/Vol] 289 10*3/uL Normal 138-453 [facility] Comment on above: Performed By: #### C BC, BMP #### [facility] [employer] [address] [place] [phone] Liquefier: Casey Marques MD RBC (Bld) [#/Vol] 4.82 10*6/uL Normal 3.95-5.11 [facility] Comment on above: Performed By: #### C BC, BMP #### [facility] [employer] [address] [place] [phone] Liquefier: Casey Marques MD WBC (Bld) [#/Vol] 13.7 10*3/uL High 3.5-11.3 [facility] Comment on above: Performed By: #### C BC, BMP #### [employer] [facility] [place] [address] Liquefier: Casey Marques MD Erythrocyte distribution width (RBC) [Ratio] 14.4 % 11.8 - 14.4 % [place] Hematocrit (Bld) [Volume fraction] 40.4 % 36.3 - 47.1 % [place] Hemoglobin (Bld) [Mass/Vol] 12.6 g/dL 11.9 - 15.1 g/dL [place] Interpretation and review of laboratory results Abnormal [place] MCH (RBC) [Entitic mass] 26.1 pg 25.2 - 33.5 pg [place] MCHC (RBC) [Mass/Vol] 31.2 g/dL 28.4 - 34.8 g/dL [place] MCV (RBC) [Entitic vol] 83.8 fL 82.6 - 102.9 fL [place] Platelet mean volume (Bld) [Entitic vol] 8.7 fL 8.1 - 13.5 fL [place] Platelets (Bld) [#/Vol] 289 10*3/uL [place] RBC (Bld) [#/Vol] 4.82 10*6/uL 3.95 - 5.1 1 m/uL [place] WBC (Bld) [#/Vol] 0.0 10*3/uL 0.0 per 10 0 WBC [place] WBC (Bld) [#/Vol] 13.7 10*3/uL [place] ESOPHAGRAMon 05-07-2020 [place] ESOPHAGRAM EXAMINATION: [...] Petr Cullen MD 05/07/20 Final result Normal [facility] EXAMINATION: SINGLE CONTRAST ESOPHAGRAM 05/07/2020 HISTORY: [...] sleeve. No obstruction. No extravasation of contrast. [place], [place] Julius, Mhpn Incoming Radiant Results From [employer] - 05/07/2020 10:04 AM EST EXAMINATION: SINGLE [...] of contrast. IMPRESSION: No extravasation of contrast. [place] No extravasation of contrast. [place] POCT urine pregnancyon 05-07 Beta HCG ( test) Ql (U) Negative NEGATIVE [place] Comment on above: Specimens with hCG [...] [Moles/Vol] 10 mmol/L 9 - 17 mmol/L [place] Bun/Cre Ratio NOT REPORTED [facility] [place] Calcium [Mass/Vol] 9.5 mg/dL 8.6 - 10. 4 mg/dL [place] Chloride [Moles/Vol] 103 mmol/L 98 - 10 7 mmol/L [place] CO2 [Moles/Vol] 19 mmol/L Low 20 - 31 mmol/L [place] Creatinine [Mass/Vol] 0.9 mg/dL 0.5 - 0.9 mg/dL [place] GFR >60 >60 mL/min [place] GFR Non- >60 >60 mL/min [place] GFR/1.73 sq M predicted among non-blacks MDRD (S/P/Bld) [Vol rate/Area] NOT REPORTED [place] GFR/1.73 sq M predicted among non-blacks MDRD (S/P/Bld) [Vol rate/Area] [place] Comment on above: Average GFR for 20-2 9 years old: 116 mL/min/1.73sq m Chronic Kidney Disease: <60 mL/min/1.73sq m Kidney failure: <15 mL/min/1.73sq m eGFR calculated using average adult body mass. Additional eGFR calculator available at: http://www.MideoMe/multiple_crcl_2012.htm Glucose [Mass/Vol] 162 mg/dL High 70 - 99 mg/dL [place] Interpretation and review of laboratory results Abnormal [place] Potassium [Moles/Vol] 3.9 mmol/L 3.7 - 5.3 mmol/L [place] Sodium [Moles/Vol] 132 mmol/L Low 135 - 144 mmol/L [place] Urea nitrogen [Mass/Vol] 10 mg/dL 6 - 20 mg/dL [place] Basic Metabolic Profon 05-06 (cont.) Normal [facility] Comment on above: Result Comment: Aver age GFR for 20-29 years old: 116 mL/min/1.73sq m Chronic Kidney Disease: <60 mL/min/1.73sq m Kidney failure: <15 mL/min/1.73sq m eGFR calculated using average adult body mass. Additional eGFR calculator available at: http://www.Snaapiq.BitPass/multiple_crcl_2012.htm Performed By: #### C BC, BMP #### [address] [address] Liquefier: Casey Marques MD Anion gap [Moles/Vol] 10 mmol/L Normal 9-17 [facility] Comment on above: Performed By: #### C BC, BMP #### [facility] [employer] [address] [place] [phone] Liquefier: Casey Marques MD Calcium [Mass/Vol] 9.5 mg/dL Normal 8.6-10.4 [facility] Comment on above: Performed By: #### C ABHAY, BMP #### [facility] [employer] [address] [place] [phone] Liquefier: Casey Marques MD Chloride [Moles/Vol] 103 mmol/L Normal 98-107 [facility] Comment on above: Performed By: #### C BC, BMP #### [address] [address] Liquefier: Casey Marques MD CO2 [Moles/Vol] 19 mmol/L Low 20-31 [facility] Comment on above: Performed By: #### C BC, BMP #### [facility] [employer] [address] [place] [phone] Liquefier: Casey Marques MD Creatinine [Mass/Vol] 0.90 mg/dL Normal 0.50-0.90 [facility] Comment on above: Performed By: #### C BC, BMP #### [facility] [employer] [address] [place] [phone] Liquefier: Casey Marques MD GFR, Amer >60 Normal >60 [facility] Comment on above: Performed By: #### C BC, BMP #### [facility] [address] [place] [phone] Liquefier: Casey Marques MD GFR,non Amer >60 Normal >60 [facility] Comment on above: Performed By: #### C BC, BMP #### [facility] [address] [place] [address] Liquefier: Casey Marques MD Glucose [Mass/Vol] 162 mg/dL High 70-99 [facility] Comment on above: Performed By: #### C BC, BMP #### [facility] [address] [place] [phone] Liquefier: Casey Marques MD Potassium [Moles/Vol] 3.9 mmol/L Normal 3.7-5.3 [facility] Comment on above: Performed By: #### C BC, BMP #### [facility] [address] [place] [address] Liquefier: Casey Marques MD Sodium [Moles/Vol] 132 mmol/L Low 135-144 [facility] Comment on above: Performed By: #### C BC, BMP #### [facility] [address] [place] [address] Liquefier: Casey Marques MD Urea nitrogen [Mass/Vol] 10 mg/dL Normal 6-20 [facility] Comment on above: Performed By: #### C BC, BMP #### [facility] [address] [place] [phone] Liquefier: Casey Marques MD BUN/CRE Ratio NOT REPORTED Normal 9-20 [facility] Comment on above: Performed By: #### C BC, BMP #### [facility] [employer] [address] [place] [phone] Liquefier: Casey Marques MD Staging: NOT REPORTED Normal [facility] Comment on above: Performed By: #### C BC, BMP #### [address] [address] Liquefier: Casey Marques MD CBCon 05-06-2020 Erythrocyte distribution width (RBC) [Ratio] 14.6 % High 11.8-14.4 [facility] Comment on above: Performed By: #### C BC, BMP #### [address] [address] Liquefier: Casey Marques MD Hematocrit (Bld) [Volume fraction] 42.5 % Normal 36.3-47.1 [facility] Comment on above: Performed By: #### C BC, BMP #### [address] [address] Liquefier: Casey Marques MD Hemoglobin (Bld) [Mass/Vol] 12.8 g/dL Normal 11.9-15.1 [facility] Comment on above: Performed By: #### C BC, BMP #### [address] [address] Liquefier: Casey Marques MD MCH (RBC) [Entitic mass] 26.9 pg Normal 25.2-33.5 [facility] Comment on above: Performed By: #### C BC, BMP #### [address] [address] Liquefier: Casey Marques MD MCHC (RBC) [Mass/Vol] 30.1 g/dL Normal 28.4-34.8 [facility] Comment on above: Performed By: #### C BC, BMP #### [facility] [employer] [address] [place] [phone] Liquefier: Casey Marques MD MCV (RBC) [Entitic vol] 89.3 fL Normal 82.6-102.9 [facility] Comment on above: Performed By: #### C BC, BMP #### [facility] [address] [place] [address] Liquefier: Casey Marques MD NRBC Automated 0.0 per 100 WBC Normal 0.0 [facility] Comment on above: Performed By: #### C BC, BMP #### [facility] [address] [place] [phone] Liquefier: Casey Marques MD Platelet mean volume (Bld) [Entitic vol] 8.4 fL Normal 8.1-13.5 [facility] Comment on above: Performed By: #### C BC, BMP #### [facility] [address] [place] [phone] Liquefier: Casey Marques MD Platelets (Bld) [#/Vol] 300 10*3/uL Normal 138-453 [facility] Comment on above: Performed By: #### C BC, BMP #### [facility] [employer] [address] [place] [phone] Liquefier: Casey Marques MD RBC (Bld) [#/Vol] 4.76 10*6/uL Normal 3.95-5.11 [facility] Comment on above: Performed By: #### C BC, BMP #### [address] [address] Liquefier: Casey Marques MD WBC (Bld) [#/Vol] 14.3 10*3/uL High 3.5-11.3 [facility] Comment on above: Performed By: #### C BC, BMP #### [facility] [employer] [address] [place] [phone] Liquefier: Casey Marques MD CBC without Diffon Erythrocyte distribution width (RBC) [Ratio] 14.6 % High 11.8 - 14.4 % [place] Hematocrit (Bld) [Volume fraction] 42.5 % 36.3 - 47.1 % [place] Hemoglobin (Bld) [Mass/Vol] 12.8 g/dL 11.9 - 15.1 g/dL [place] Interpretation and review of laboratory results Abnormal [place] MCH (RBC) [Entitic mass] 26.9 pg 25.2 - 33.5 pg [place] MCHC (RBC) [Mass/Vol] 30.1 g/dL 28.4 - 34.8 g/dL [place] MCV (RBC) [Entitic vol] 89.3 fL 82.6 - 102.9 fL [place] Platelet mean volume (Bld) [Entitic vol] 8.4 fL 8.1 - 13.5 fL [place] Platelets (Bld) [#/Vol] 300 10*3/uL [place] RBC (Bld) [#/Vol] 4.76 10*6/uL 3.95 - 5.1 1 m/uL [place] WBC (Bld) [#/Vol] 14.3 10*3/uL [place] WBC (Bld) [#/Vol] 0.0 10*3/uL 0.0 per 10 0 WBC [place] Surgical Pathologyon 021 Surgical Pathology (NOTE) -- Diagnosis -- STOMACH, SLEEVE GASTRECTOMY: - MODERATE CHRONIC INACTIVE GASTRITIS. - NEGATIVE FOR ACTIVE GASTRITIS, INTESTINAL METAPLASIA OR DYSPLASIA. Aaron Saunders M.D. Electronically Signed Out jet/05/08/2020 Clinical Information Pre-op Diagnosis: MORBID OBESITY, HYPOTHYROID [...] with no areas of granularity or masses. Night Auditor sections 1cs. tm Microscopic Description Sections of gastric mucosa show increased lymphocytes and plasma cells in the lamina propria. There is no evidence of acute inflammation, intestinal metaplasia or dysplasia. There is no evidence of organisms suspicious for Helicobacter with the routine BRI stains. SURGICAL PATHOLOGY CONSULTATION Patient Name: JAZ SANDERS [facility] Rec: [id number] Path Number: [id number] [facility] ANATOMIC PATHOLOGY [address] [place] [id number] [facility] Comment on above: Performed By: #### C BC, PT, PTT, BMP #### [address] [phone] Liquefier: Casey Marques MD #### ANICOT #### [facility] [address] [place] [address] Liquefier: Adolph Diaz MD [id number] 05-04-2020 SARS-CoV-2 [facility] Comment on above: Performed By: #### C OVID #### [address] [phone] Liquefier: Casey Marques MD SARS-CoV-2 Not Detected [facility] Comment on above: Result Comment: The specimen is NEGATIVE for SARS-CoV-2, the novel coronavirus associated with COVID-19. A negative result does not rule out COVID-19. Bernard SARS-CoV-2 for use on the Bernard [employer] is a real-time RT-PCR test intended [...] this assay. Fact sheet for Healthcare Providers: https://www.fda.gov/media/193611/download Fact sheet for Patients: https://www.fda.gov/media/403402/download METHODOLOGY: RT-PCR Performed By: #### C OVID #### [address] [address] Liquefier: Casey Marques MD SARS-CoV-2,Rapid [facility] Comment on above: Performed By: #### C OVID #### [address] [address] Liquefier: Casey Marques MD [id number] 05-03-2020 SARS-CoV-2 Source .NASOPHARYNGEAL SWAB [facility] Comment on above: Performed By: #### C OVID #### [address] [address] Liquefier: Casey Marques MD Nicotineon 5 1-ES-[id number] <2 [facility] Comment on above: Performed By: #### C BC, PT, PTT, BMP #### [address] [address] Liquefier: Casey Marques MD #### ANICOT #### [facility] [address] [place], [place] [id number] Liquefier: Adolph Diaz MD Cotinine <2 [facility] Comment on above: Performed By: #### C BC, PT, PTT, BMP #### [address] [address] Liquefier: Casey Marques MD #### ANICOT #### [facility] [address] [place], [place] [id number] Liquefier: Adolph Diaz MD Nicotine <2 [facility] Comment on above: Result Comment: (NOT [...] positive. Test developed and characteristics determined by [employer]. See Compliance Statement B: [employer]/CS Performed By: [employer] [address] [place] [address] [employer]rick Unloader Tender: Lynn Layne MD Performed By: #### C BC, PT, PTT, BMP #### [employer] [facility] [place] [address] Liquefier: Casey Marques MD #### ANICOT #### [employer] [address] [place] [address] Liquefier: Adolph Diaz MD Nicotine, Bloodon 04-26-2020 [id number] <2 ng/mL [facility] [place], [place] Cotinine <2 ng/mL [facility], [place] Nicotine <2 ng/mL [facility], [place] Comment on above: (NOTE) Consistent with abstinence [...] positive. Test developed and characteristics determined by [employer]. See Compliance Statement B: [employer]/CS Performed By: [employer] [address] [place] [address] Brick Unloader Tender: Lynn Layne MD EKG 12 Leadon 04-23-2020 Atrial Rate 95 BPM [place], [place] P Harmony 14 degrees [place] P-R Interval 134 ms [place], [place] Q-T Interval 398 ms [place] QRS Duration 94 ms [place] QTc Calculation (Bazett) 500 ms [place], [place] R Harmony 15 degrees [facility], MD T Harmony 32 degrees [place], [place] Ventricular Rate 95 BPM [place] Normal sinus rhythm with sinus arrhythmia Prolonged QT Abnormal ECG No previous ECGs available [place] Julius, Mhpn Incoming E kg Results From [employer] - 04/23/2020 12:32 PM EST Normal sinus rhythm with sinus arrhythmia Prolonged QT Abnormal ECG No previous ECGs available [place] APTTon 04-22-2020 aPTT Coag (Bld) [Time] 22.2 s Normal 20.5-30.5 [facility] Comment on above: Result Comment: IV Heparin Therapy Range: 48.6-77.8 Performed By: #### C BC, PT, PTT, BMP #### [employer] [address] [place] [address] Liquefier: Casey Marques MD #### ANICOT #### [employer] [address] [place] [address] Liquefier: Adolph Diaz MD aPTT Coag (Bld) [Time] 22.2 s [place] Comment on above: IV Heparin Therapy Range: 48.6-77.8 Basic Metabolic Panelon Anion gap [Moles/Vol] 12 mmol/L 9 - 17 mmol/L [place] Bun/Cre Ratio NOT REPORTED [facility] [place] Calcium [Mass/Vol] 9.2 mg/dL 8.6 - 10. 4 mg/dL [place] Chloride [Moles/Vol] 104 mmol/L 98 - 10 7 mmol/L [place] CO2 [Moles/Vol] 23 mmol/L 20 - 31 mmol/L [place] Creatinine [Mass/Vol] 0.69 mg/dL 0.5 - 0.9 mg/dL [place] GFR >60 >60 mL/min [place] GFR Non- >60 >60 mL/min [place] GFR/1.73 sq M predicted among non-blacks MDRD (S/P/Bld) [Vol rate/Area] NOT REPORTED [place] GFR/1.73 sq M predicted among non-blacks MDRD (S/P/Bld) [Vol rate/Area] [place] Comment on above: Average GFR for 20-2 9 years old: 116 mL/min/1.73sq m Chronic Kidney Disease: <60 mL/min/1.73sq m Kidney failure: <15 mL/min/1.73sq m eGFR calculated using average adult body mass. Additional eGFR calculator available at: http://www.MideoMe/multiple_crcl_2011.htm Glucose [Mass/Vol] 123 mg/dL High 70 - 99 mg/dL [place], [place] Interpretation and review of laboratory results Abnormal [place] Potassium [Moles/Vol] 4.1 mmol/L 3.7 - 5.3 mmol/L [place] Sodium [Moles/Vol] 139 mmol/L 135 - 144 mmol/L [place] Urea nitrogen [Mass/Vol] 7 mg/dL 6 - 20 mg/dL [place] Basic Metabolic Profon 04-22 (cont.) Normal [facility] Comment on above: Result Comment: Aver age GFR for 20-29 years old: 116 mL/min/1.73sq m Chronic Kidney Disease: <60 mL/min/1.73sq m Kidney failure: <15 mL/min/1.73sq m eGFR calculated using average adult body mass. Additional eGFR calculator available at: http://www.Snaapiq.BitPass/multiple_crcl_2012.htm Performed By: #### C BC, PT, PTT, BMP #### [address] [id number] Liquef[employer]: Casey Marques MD #### ANICOT #### [address] [id number] Liquefier: Adolph Diaz MD Anion gap [Moles/Vol] 12 mmol/L Normal 9-17 [facility] Comment on above: Performed By: #### C BC, PT, PTT, BMP #### [address] [id number] Liquefier: Casey Marques MD #### ANICOT #### [address] [phone] Liquefier: Adolph Diaz MD Calcium [Mass/Vol] 9.2 mg/dL Normal 8.6-10.4 [facility] Comment on above: Performed By: #### C BC, PT, PTT, BMP #### [address] [id number] Liquefier: Casey Marques MD #### ANICOT #### [address] [phone] Liquefier: Adolph Diaz MD Chloride [Moles/Vol] 104 mmol/L Normal 98-107 [facility] Comment on above: Performed By: #### C BC, PT, PTT, BMP #### [address] [id number] Liquefier: Casey Marques MD #### ANICOT #### [address] [phone] Liquefier: Adolph Diaz MD CO2 [Moles/Vol] 23 mmol/L Normal 20-31 [facility] Comment on above: Performed By: #### C BC, PT, PTT, BMP #### [address] [phone] Liquefier: Casey Marques MD #### ANICOT #### [facility] [address] [place], [place] [phone] Liquefier: Adolph Diaz MD Creatinine [Mass/Vol] 0.69 mg/dL Normal 0.50-0.90 [facility] Comment on above: Performed By: #### C BC, PT, PTT, BMP #### [address] [phone] Liquefier: Casey Marques MD #### ANICOT #### [address] [phone] Liquefier: Adolph Diaz MD GFR, Amer >60 Normal >60 [facility] Comment on above: Performed By: #### C BC, PT, PTT, BMP #### [address] [phone] Liquefier: Casey Marques MD #### ANICOT #### [facility] [address] [place], [place] [phone] Liquefier: Adolph Diaz MD GFR,non Amer >60 Normal >60 [facility] Comment on above: Performed By: #### C BC, PT, PTT, BMP #### [address] [phone] Liquefier: Casey Marques MD #### ANICOT #### [facility] [address] [place] [address] Liquefier: Adolph Diaz MD Glucose [Mass/Vol] 123 mg/dL High 70-99 [facility] Comment on above: Performed By: #### C BC, PT, PTT, BMP #### [address] [id number] Liquefier: Casey Marques MD #### ANICOT #### [facility] [address] [place], [place] [phone] Liquefier: Adolph Diaz MD Potassium [Moles/Vol] 4.1 mmol/L Normal 3.7-5.3 [facility] Comment on above: Performed By: #### C BC, PT, PTT, BMP #### [address] [phone] Liquefier: Casey Marques MD #### ANICOT #### [address] [phone] Liquefier: Adolph Diaz MD Sodium [Moles/Vol] 139 mmol/L Normal 135-144 [facility] Comment on above: Performed By: #### C BC, PT, PTT, BMP #### [address] [phone] Liquefier: Casey Marques MD #### ANICOT #### [facility] [address] [place], [place] [phone] Liquefier: Adolph Diaz MD Urea nitrogen [Mass/Vol] 7 mg/dL Normal 6-20 [facility] Comment on above: Performed By: #### C BC, PT, PTT, BMP #### [address] [phone] Liquefier: Casey Marques MD #### ANICOT #### [facility] [address] [place], [place] [phone] Liquefier: Adolph Diaz MD BUN/CRE Ratio NOT REPORTED Normal 9-20 [facility] Comment on above: Performed By: #### C BC, PT, PTT, BMP #### [facility] [place] [address] Liquefier: Casey Marques MD #### ANICOT #### [facility] [address] [place] [address] Liquefier: Adolph Diaz MD Staging: NOT REPORTED Normal [facility] Comment on above: Performed By: #### C BC, PT, PTT, BMP #### [facility] [address] [place] [phone] Liquefier: Casey Marques MD #### ANICOT #### [facility] [address] [place], [place] [id number] Liquefier: Adolph Diaz MD CBC 04-22-2020 Erythrocyte distribution width (RBC) [Ratio] 14.6 % High 11.8-14.4 [facility] Comment on above: Performed By: #### C BC, PT, PTT, BMP #### [address] [address] Liquefier: Casey Marques MD #### ANICOT #### [facility] [address] [place] [address] Liquefier: Adolph Diaz MD Hematocrit (Bld) [Volume fraction] 40.8 % Normal 36.3-47.1 [facility] Comment on above: Performed By: #### C BC, PT, PTT, BMP #### [facility] [address] [place] [address] [phone] Liquefier: Casey Marques MD #### ANICOT #### [facility] [address] [place], [place] [phone] Liquefier: Adolph Diaz MD Hemoglobin (Bld) [Mass/Vol] 12.8 g/dL Normal 11.9-15.1 [facility] Comment on above: Performed By: #### C BC, PT, PTT, BMP #### [address] [phone] Liquefier: Casey Marques MD #### ANICOT #### [facility] [address] [place], [place] [phone] Liquefier: Adolph Diaz MD MCH (RBC) [Entitic mass] 26.5 pg Normal 25.2-33.5 [facility] Comment on above: Performed By: #### C BC, PT, PTT, BMP #### [address] [phone] Liquefier: Casey Maruqes MD #### ANICOT #### [facility] [address] [place] [phone] Liquefier: Adolph Diaz MD MCHC (RBC) [Mass/Vol] 31.4 g/dL Normal 28.4-34.8 [facility] Comment on above: Performed By: #### C BC, PT, PTT, BMP #### [address] [phone] Liquefier: Casey Marques MD #### ANICOT #### [facility] [address] [place] [address] Liquefier: Adolph Diaz MD MCV (RBC) [Entitic vol] 84.5 fL Normal 82.6-102.9 [facility] Comment on above: Performed By: #### C BC, PT, PTT, BMP #### [address] [phone] Liquefier: Casey Marques MD #### ANICOT #### [facility] [address] [place], [place] [phone] Liquefier: Adolph Diaz MD NRBC Automated 0.0 per 100 WBC Normal 0.0 [facility] Comment on above: Performed By: #### C BC, PT, PTT, BMP #### [address] [phone] Liquefier: Casey Marques MD #### ANICOT #### [facility] [address] [place] [address] Liquefier: Adolph Diaz MD Platelet mean volume (Bld) [Entitic vol] 8.7 fL Normal 8.1-13.5 [facility] Comment on above: Performed By: #### C BC, PT, PTT, BMP #### [address] [phone] Liquefier: Casey Marques MD #### ANICOT #### [facility] [address] [place] [address] Liquefier: Adolph Diaz MD Platelets (Bld) [#/Vol] 298 10*3/uL Normal 138-453 [facility] Comment on above: Performed By: #### C BC, PT, PTT, BMP #### [address] [phone] Liquefier: Casey Marques MD #### ANICOT #### [facility] [address] [place] [address] Liquefier: Adolph Diaz MD RBC (Bld) [#/Vol] 4.83 10*6/uL Normal 3.95-5.11 [facility] Comment on above: Performed By: #### C BC, PT, PTT, BMP #### [address] [phone] Liquefier: Casey Marques MD #### ANICOT #### [facility] [address] [place] [address] Liquefier: Adolph Diaz MD WBC (Bld) [#/Vol] 10.8 10*3/uL Normal 3.5-11.3 [facility] Comment on above: Performed By: #### C BC, PT, PTT, BMP #### [facility] [address] [place] [address] Liquefier: Casey Marques MD #### ANSAMMIET #### [facility] [address] [place] [address] Liquefier: Adolph Diaz MD Erythrocyte distribution width (RBC) [Ratio] 14.6 % High 11.8 - 14.4 % [place] Hematocrit (Bld) [Volume fraction] 40.8 % 36.3 - 47.1 % [place] Hemoglobin (Bld) [Mass/Vol] 12.8 g/dL 11.9 - 15.1 g/dL [place] Interpretation and review of laboratory results Abnormal [place] MCH (RBC) [Entitic mass] 26.5 pg 25.2 - 33.5 pg [place] MCHC (RBC) [Mass/Vol] 31.4 g/dL 28.4 - 34.8 g/dL [place] MCV (RBC) [Entitic vol] 84.5 fL 82.6 - 102.9 fL [place] Platelet mean volume (Bld) [Entitic vol] 8.7 fL 8.1 - 13.5 fL [place] Platelets (Bld) [#/Vol] 298 10*3/uL [place] RBC (Bld) [#/Vol] 4.83 10*6/uL 3.95 - 5.1 1 m/uL [place] WBC (Bld) [#/Vol] 10.8 10*3/uL [place] WBC (Bld) [#/Vol] 0.0 10*3/uL 0.0 per 10 0 WBC [place] Otheron 04-22-2020 No acute cardiopulmonary findings [place] EXAMINATION: TWO XRA Y VIEWS OF THE CHEST 04/22/2020 2:46 pm COMPARISON: Baseline examination HISTORY: ORDERING SYSTEM PROVIDED HISTORY: preop gastric bypass [employer] TECHNOLOGIST PROVIDED HISTORY: preop gastric bypass Ben [employer] Y Reason for Exam: preop gastric bypass FINDINGS: Normal cardiopericardial silhouette There are no significant pleural, parenchymal, mediastinal or osseous findings [place], [place], [facility] Incoming Radiant Results From [place] - 04/22/2020 3:28 PM EST EXAMINATION: TWO XRAY VIEWS OF THE CHEST 04/22/2020 2:46 pm COMPARISON: Baseline examination HISTORY: ORDERING SYSTEM PROVIDED HISTORY: preop gastric bypass [employer] TECHNOLOGIST PROVIDED HISTORY: preop gastric bypass Ben [employer] Y Reason for Exam: preop gastric bypass FINDINGS: Normal cardiopericardial silhouette There are no significant pleural, parenchymal, mediastinal or osseous findings IMPRESSION: No acute [facility]opulmonary findings [facility]R Coag (PPP) [Relative time] 0.9 {INR} Normal [facility] Comment on above: Result Comment: Therapeutic Range: Moderate Anticoagulant Intensity: INR = 2.0-3.0 High Anticoagulant Intensity: INR = 2.5-3.5 Performed By: #### C BC, PT, PTT, BMP #### [employer] [address] [place] [phone] Liquefier: Casey Marques MD #### ANICOT #### [facility] [address] [place] [address] Liquefier: Adolph Diaz MD PT Coag (PPP) [Time] 9.3 s Normal 9.0-12.0 [facility] Comment on above: Performed By: #### C BC, PT, PTT, BMP #### [employer] [address] [place] [phone] Liquefier: Casey Marques MD #### ANICOT #### [facility] [address] [place] [address] Liquefier: Adolph Diaz MD [employer] 04-22-2020 INR Coag (PPP) [Relative time] 0.9 {INR} [facility] Comment on above: Therapeutic Range: Moderate Anticoagulant Intensity: INR = 2.0-3.0 High Anticoagulant Intensity: INR = 2.5-3.5 PT Coag (PPP) [Time] 9.3 s [facility] NORMA BUTLER XR CHEST (2 VW)on 04-22-2020 XR CHEST [...] Roxanne Avitia MD 04/22/20 Final result Normal [facility] Vital Signs Date Time Vital Sign Value Performing Clinician Sonal lerma 12-19-2024 10:01-0400 Body mass index (BMI) [Ratio] 36.79 kg/m2 Jojo OGDEN Work Phone: [facility] 12-19-2024 10:01-0400 Body weight 119.66 kg Jojo OGDEN Work Phone: [facility] 12-19-2024 10:01-0400 Diastolic blood pressure 60 mm[Hg] Jojo OGDEN Work Phone: [facility] 12-19-2024 10:01-0400 Systolic blood pressure 118 mm[Hg] Jojo OGDEN Work Phone: [facility] 12-05-2024 12:46-0400 Body height 180.3 cm Latricia Lindquist MD Work Phone: [facility] 12-05-2024 12:46-0400 Body mass index (BMI) [Ratio] 35.84 kg/m2 Latricia Lindquist MD Work Phone: [facility] 12-05-2024 12:46-0400 Body weight 116.57 kg Latricia Lindquist MD Work Phone: [facility] 12-05-2024 12:46-0400 Diastolic blood pressure 62 mm[Hg] Latricia Lindquist MD Work Phone: [facility] 12-05-2024 12:46-0400 Heart rate 73 /min Latricia Lindquist MD Work Phone: [facility] 12-05-2024 12:46-0400 Systolic blood pressure 95 mm[Hg] Latricia Lindquist MD Work Phone: [facility] 12-02-2024 23:35-0400 Body height 180.34 cm Amanda Ford APRN Work Phone: [facility] 12-02-2024 23:35-0400 Body temperature 97.2 [degF] Amanda Ford APRN Work Phone: [facility] 12-02-2024 23:35-0400 Body weight 115.66 kg Amanda Ford APRN Work Phone: [facility] 12-02-2024 23:35-0400 Diastolic blood pressure 56 mm[Hg] Amanda Ford APRN Work Phone: [facility] 12-02-2024 23:35-0400 Heart rate 75 /min Amanda Ford APRN Work Phone: [facility] 12-02-2024 23:35-0400 Respiratory rate 16 /min Amanda Ford APRN Work Phone: [facility] 12-02-2024 23:35-0400 SaO2% (BldA) [Mass fraction] 97 % Amanda Ford APRN Work Phone: [facility] 12-02-2024 23:35-0400 Systolic blood pressure 119 mm[Hg] Amanda Ford APRN Work Phone: [facility] 11-20-2024 10:37-0400 Body weight 116.1216 kg Amanda Ford HORSE DOCTOR Work Phone: [facility] 11-20-2024 09:10-0400 Body mass index (BMI) [Ratio] 35.7 kg/m2 Les Juan DO Work Phone: [facility] 11-20-2024 09:10-0400 Body weight 116.12 kg Les Juan DO Work Phone: [facility] 11-20-2024 09:10-0400 Diastolic blood pressure 64 mm[Hg] Les Juan DO Work Phone: [facility] 11-20-2024 09:10-0400 Systolic blood pressure 114 mm[Hg] Les Juan DO Work Phone: [facility] 10-22-2024 11:28-0400 Body mass index (BMI) [Ratio] 31.24 kg/m2 Les Juan DO Work Phone: [facility] 10-22-2024 11:28-0400 Body weight 101.61 kg Les Juan DO Work Phone: [facility] 10-22-2024 11:28-0400 Diastolic blood pressure 62 mm[Hg] Les Juan DO Work Phone: [facility] 10-22-2024 11:28-0400 Systolic blood pressure 110 mm[Hg] Les Juan DO Work Phone: [facility] 10-18-2024 13:34-0400 Diastolic blood pressure 71 mm[Hg] Amanda Ford HORSE DOCTOR Work Phone: [facility] 10-18-2024 13:34-0400 Heart rate 60 /min Amanda Ford HORSE DOCTOR Work Phone: [facility] 10-18-2024 13:34-0400 Respiratory rate 18 /min Amanda Ford HORSE DOCTOR Work Phone: [facility] 10-18-2024 13:34-0400 SaO2% (BldA) [Mass fraction] 99 % Amanda Shethbilly HORSE DOCTOR Work Phone: [facility] 10-18-2024 13:34-0400 Systolic blood pressure 112 mm[Hg] Amanda Poncesudhakar HORSE DOCTOR Work Phone: [facility] 10-18-2024 10:38-0400 Body height 180.34 cm Amanda Poncesudhakar HORSE DOCTOR Work Phone: [facility] 10-18-2024 10:38-0400 Body temperature 98.1 [degF] Amanda Poncesudhakar HORSE DOCTOR Work Phone: [facility] 10-18-2024 10:38-0400 Body weight 106.85 kg Amanda Poncesudhakar HORSE DOCTOR Work Phone: [facility] 09-20-2024 15:06-0400 Body mass index (BMI) [Ratio] 31.24 kg/m2 [facility] Nurse [facility] 09-20-2024 15:06-0400 Body weight 101.61 kg [facility] Nurse [facility] 09-20-2024 15:06-0400 Diastolic blood pressure 74 mm[Hg] [facility] Nurse [facility] 09-20-2024 15:06-0400 Systolic blood pressure 122 mm[Hg] [facility] Nurse [facility] 08-22-2024 10:04-0400 Body height 180.3 cm Darleen Sinclair MD Work Phone: [facility] 08-22-2024 10:04-0400 Body mass index (BMI) [Ratio] 29.99 kg/m2 Darleen [place] MD Work Phone: [facility] 08-22-2024 10:04-0400 Body weight 97.52 kg Darleen [place] MD Work Phone: [facility] 08-22-2024 10:04-0400 Diastolic blood pressure 56 mm[Hg] Darleen [place] MD Work Phone: [facility] 08-22-2024 10:04-0400 Heart rate 67 /min Darleen [place] MD Work Phone: [facility] 08-22-2024 10:04-0400 Respiratory rate 16 /min Darleen [place] MD Work Phone: [facility] 08-22-2024 10:04-0400 SaO2% (BldA) [Mass fraction] 99 % Darleen [place] MD Work Phone: [facility] 08-22-2024 10:04-0400 Systolic blood pressure 124 mm[Hg] Darleen [place] MD Work Phone: [facility] 04-26-2024 08:32-0500 Body height 180.34 cm [facility] 04-26-2024 08:32-0500 Body mass index (BMI) [Ratio] 30.4 kg/m2 [facility] 04-26-2024 08:32-0500 Body temperature 97.3 [degF] [facility] 04-26-2024 08:32-0500 Body weight 98.99 kg [facility] 04-26-2024 08:32-0500 Diastolic blood pressure 60 mm[Hg] [facility] 04-26-2024 08:32-0500 Heart rate 73 /min [facility] 04-26-2024 08:32-0500 SaO2% (BldA) [Mass fraction] 98 % [facility] 04-26-2024 08:32-0500 Systolic blood pressure 112 mm[Hg] [facility] 02-28-2024 14:03-0500 Body height 180.3 cm Ignacio Guy MD Work Phone: [facility] 02-28-2024 14:03-0500 Body mass index (BMI) [Ratio] 30.23 kg/m2 Ignacio Guy MD Work Phone: [facility] 02-28-2024 14:03-0500 Body weight 98.3 kg Ignacio Guy MD Work Phone: [facility] 02-20-2024 15:12-0500 Body mass index (BMI) [Ratio] 31.71 kg/m2 Les Juan DO Work Phone: [facility] 02-20-2024 15:12-0500 Body weight 100.25 kg Les Juan DO Work Phone: [facility] 02-20-2024 15:12-0500 Diastolic blood pressure 68 mm[Hg] Les Juan DO Work Phone: [facility] 02-20-2024 15:12-0500 Systolic blood pressure 118 mm[Hg] Les Juan DO Work Phone: [facility] 12-07-2023 11:46-0400 Diastolic blood pressure 67 mm[Hg] MELY Ford Work Phone: [facility] 12-07-2023 11:46-0400 Heart rate 76 /min HORSE DOCTORTanja Ford Work Phone: [facility] 12-07-2023 11:46-0400 Respiratory rate 16 /min HORSE DOCTORTanja Ford Work Phone: [facility] 12-07-2023 11:46-0400 SaO2% (BldA) [Mass fraction] 99 % HORSE DOCTORTanja Ford Work Phone: [facility] 12-07-2023 11:46-0400 Systolic blood pressure 149 mm[Hg] MELY Ford Work Phone: [facility] 12-07-2023 10:20-0400 Body temperature 98 [degF] HORSE DOCTORTanja Ford Work Phone: [facility] 12-07-2023 09:55-0400 Inhaled oxygen flow rate 3 L/min MELY Ford Work Phone: [facility] 12-07-2023 06:29-0400 Body height 180.34 cm HORSE DOCTORTanja Ford Work Phone: [facility] 12-07-2023 06:29-0400 Body weight 95.25 kg MELY Ford Work Phone: [facility] 11-01-2023 11:56-0400 Body height 180.34 cm EMLY Ford Work Phone: [facility] 11-01-2023 11:56-0400 Body mass index (BMI) [Ratio] 28.8 kg/m2 MELY Ford Work Phone: [facility] 11-01-2023 11:56-0400 Body weight 93.89 kg MELY Ford Work Phone: [facility] 06-08-2023 14:56-0500 Body height 180.34 cm [facility] 06-08-2023 14:56-0500 Body mass index (BMI) [Ratio] 29.4 kg/m2 [facility] 06-08-2023 14:56-0500 Body weight 95.7 kg [facility] 06-08-2023 14:56-0500 Diastolic blood pressure 68 mm[Hg] [facility] 06-08-2023 14:56-0500 Heart rate 51 /min [facility] 06-08-2023 14:56-0500 SaO2% (BldA) [Mass fraction] 98 % [facility] 06-08-2023 14:56-0500 Systolic blood pressure 122 mm[Hg] [facility] 05-17-2023 14:30-0500 Body height 180.34 cm Romeo Santana Other [facility] 05-17-2023 14:30-0500 Body mass index (BMI) [Ratio] 27.47 kg/m2 Romeo Santana Other [employer] Other 05-17-2023 14:30-0500 Body weight 89.36 kg Romeo Santana Other [employer] Other 05-17-2023 14:30-0500 Body weight 89.35 kg [facility] 02-07-2023 14:30-0400 Body height 180.34 cm Petr Lay Other [employer] Other 02-07-2023 14:30-0400 Body mass index (BMI) [Ratio] 27.61 kg/m2 Petr Lay Other [employer] Other 02-07-2023 14:30-0400 Body temperature 98.1 [degF] Petr Lay Other [employer] Other 02-07-2023 14:30-0400 Body weight 89.81 kg Petr Lay Other [employer] Other 02-07-2023 14:30-0400 Diastolic blood pressure 76 mm[Hg] Petr Lay Other [employer] Other 02-07-2023 14:30-0400 SaO2% (BldA) [Mass fraction] 99 % Petr Lay Other [employer] Other 02-07-2023 14:30-0400 Systolic blood pressure 128 mm[Hg] Petr Lay Other [employer] Other 12-27-2022 11:30-0400 Body height 180.34 cm Pert Lay Other [employer] Other 12-27-2022 11:30-0400 Body mass index (BMI) [Ratio] 28.03 kg/m2 Petr Lay Other [employer] Other 12-27-2022 11:30-0400 Body weight 91.17 kg Petr Lay Other [employer] Other 12-27-2022 11:30-0400 Diastolic blood pressure 64 mm[Hg] Petr Lay Other [employer] Other 12-27-2022 11:30-0400 Respiratory rate 18 /min Petr Lay Other [employer] Other 12-27-2022 11:30-0400 SaO2% (BldA) [Mass fraction] 99 % Petr Lay Other [employer] Other 12-27-2022 11:30-0400 Systolic blood pressure 128 mm[Hg] Petr Lay Other [employer] Other 10-11-2022 13:30-0400 Body height 180.34 cm Petr Lay Other [employer] Other 10-11-2022 13:30-0400 Body mass index (BMI) [Ratio] 28.78 kg/m2 Petr Lay Other [employer] Other 10-11-2022 13:30-0400 Body weight 93.62 kg Petr Lay Other [employer] Other 10-11-2022 13:30-0400 Diastolic blood pressure 78 mm[Hg] Petr Lay Other [employer] Other 10-11-2022 13:30-0400 Respiratory rate 18 /min Petr Lay Other [employer] Other 10-11-2022 13:30-0400 SaO2% (BldA) [Mass fraction] 98 % Petr Alireza Other [employer] Other 10-11-2022 13:30-0400 Systolic blood pressure 122 mm[Hg] Petr Alireza Other [employer] Other 09-30-2022 08:00-0400 Body height 180.34 cm Amanda Ford Other [employer] Other 09-30-2022 08:00-0400 Body mass index (BMI) [Ratio] 28.03 kg/m2 Amanda Ford Other [employer] Other 09-30-2022 08:00-0400 Body weight 91.17 kg Amanda Ford Other [employer] Other 09-30-2022 08:00-0400 Diastolic blood pressure 84 mm[Hg] Amanda Ford Other [employer] Other 09-30-2022 08:00-0400 SaO2% (BldA) [Mass fraction] 95 % Amanda Ford Other [employer] Other 09-30-2022 08:00-0400 Systolic blood pressure 126 mm[Hg] Amanda Ford Other [employer] Other 08-25-2022 15:30-0400 Body height 180.34 cm Amanda Ford Other [employer] Other 08-25-2022 15:30-0400 Body mass index (BMI) [Ratio] 29.15 kg/m2 Amanda Shethbilly Other [employer] Other 08-25-2022 15:30-0400 Body weight 94.8 kg Amanda Hahnr Other [employer] Other 08-25-2022 15:30-0400 Diastolic blood pressure 77 mm[Hg] Amanda Logan Other [employer] Other 08-25-2022 15:30-0400 Systolic blood pressure 126 mm[Hg] Amanda Jovanir Other [employer] Other 08-20-2022 11:00-0400 Body height 180.34 cm Amanda Logan Other [employer] Other 08-20-2022 11:00-0400 Body mass index (BMI) [Ratio] 28.73 kg/m2 Amanda Logan Other [employer] Other 08-20-2022 11:00-0400 Body weight 93.44 kg Amanda Logan Other [employer] Other 08-20-2022 11:00-0400 Diastolic blood pressure 72 mm[Hg] Amanda Logan Other [employer] Other 08-20-2022 11:00-0400 SaO2% (BldA) [Mass fraction] 100 % Amanda Logan Other [employer] Other 08-20-2022 11:00-0400 Systolic blood pressure 118 mm[Hg] Amanda Poncesudhakar Other [facility] [employer] Other 06-11-2022 16:43-0500 Body temperature 98.1 [degF] MD Robin Appiah Work Phone: [facility] 06-11-2022 16:43-0500 Diastolic blood pressure 56 mm[Hg] MD Robin Appiah Work Phone: [facility] 06-11-2022 16:43-0500 Heart rate 60 /min MD Robin Appiah Work Phone: [facility] 06-11-2022 16:43-0500 Respiratory rate 16 /min MD Robin Appiah Work Phone: [facility] 06-11-2022 16:43-0500 SaO2% (BldA) [Mass fraction] 100 % MD Robin Appiah Work Phone: [facility] 06-11-2022 16:43-0500 Systolic blood pressure 102 mm[Hg] MD Robin Appiah Work Phone: [facility] 06-11-2022 09:40-0500 Body height 180.34 cm MD Robin Appiah Work Phone: [facility] 06-11-2022 05:42-0500 Body weight 93 kg MD Robin Appiah Work Phone: [facility] 06-10-2022 17:55-0500 Body temperature 98.1 [degF] MD Robin Appiah Work Phone: [facility] 06-10-2022 17:55-0500 Diastolic blood pressure 56 mm[Hg] MD Robin Appiah Work Phone: [facility] 06-10-2022 17:55-0500 Heart rate 62 /min MD Robin Appiah Work Phone: [facility] 06-10-2022 17:55-0500 Respiratory rate 18 /min MD Robin Appiah Work Phone: [facility] 06-10-2022 17:55-0500 SaO2% (BldA) [Mass fraction] 100 % MD Robin Appiah Work Phone: [facility] 06-10-2022 17:55-0500 Systolic blood pressure 122 mm[Hg] MD Robin Appiah Work Phone: [facility] 06-10-2022 14:22-0500 Body height 180.34 cm MD Robin Appiah Work Phone: [facility] 06-10-2022 14:22-0500 Body weight 92.7 kg MD Robin Appiah Work Phone: [facility] 04-21-2022 15:00-0500 Body height 180.34 cm Amanda Ford Other [employer] Other 04-21-2022 15:00-0500 Body mass index (BMI) [Ratio] 27.81 kg/m2 Amanda Ford Other [employer] Other 04-21-2022 15:00-0500 Body temperature 98.2 [degF] Amanda Ford Other [employer] Other 04-21-2022 15:00-0500 Body weight 90.45 kg Amanda Ford Other [employer] Other 04-21-2022 15:00-0500 Diastolic blood pressure 68 mm[Hg] Amanda Ford Other [employer] Other 04-21-2022 15:00-0500 Respiratory rate 18 /min Amanda Ford Other [employer] Other 04-21-2022 15:00-0500 SaO2% (BldA) [Mass fraction] 99 % Amanda Logan Other [employer] Other 04-21-2022 15:00-0500 Systolic blood pressure 111 mm[Hg] Amanda Logan Other [employer] Other 04-10-2022 21:41-0500 Diastolic blood pressure 56 mm[Hg] MD Robin Appiah Work Phone: [facility] 04-10-2022 21:41-0500 Systolic blood pressure 112 mm[Hg] MD Robin Appiah Work Phone: [facility] 04-10-2022 18:14-0500 Body height 180.34 cm MD Robin Appiah Work Phone: [facility] 04-10-2022 18:14-0500 Body temperature 98.1 [degF] MD Robin Appiah Work Phone: [facility] 04-10-2022 18:14-0500 Body weight 88 kg MD Robin Appiah Work Phone: [facility] 04-10-2022 18:14-0500 Heart rate 119 /min MD Robin Appiah Work Phone: [facility] 04-10-2022 18:14-0500 Respiratory rate 18 /min MD Robin Appiah Work Phone: [facility] 04-10-2022 18:14-0500 SaO2% (BldA) [Mass fraction] 100 % MD Robin Appiah Work Phone: [facility] 04-08-2022 17:15-0500 Body temperature 97.5 [degF] MD Robin Appiah Work Phone: [facility] 04-08-2022 17:15-0500 Diastolic blood pressure 59 mm[Hg] MD Robin Appiah Work Phone: [facility] 04-08-2022 17:15-0500 Heart rate 59 /min MD Robin Appiah Work Phone: [facility] 04-08-2022 17:15-0500 Respiratory rate 18 /min MD Robin Appiah Work Phone: [facility] 04-08-2022 17:15-0500 SaO2% (BldA) [Mass fraction] 100 % MD Robin Appiah Work Phone: [facility] 04-08-2022 17:15-0500 Systolic blood pressure 128 mm[Hg] MD Robin Appiah Work Phone: [facility] 04-08-2022 14:33-0500 Body height 180.34 cm MD Robin Appiah Work Phone: [facility] 04-08-2022 14:33-0500 Body weight 88.1 kg MD Robin Appiah Work Phone: [facility] 03-23-2022 15:30-0500 Body height 180.34 cm Amanda Ford Other [employer] Other 03-23-2022 15:30-0500 Body mass index (BMI) [Ratio] 27.05 kg/m2 Amanda Ford Other [employer] Other 03-23-2022 15:30-0500 Body weight 88 kg Amanda Ford Other [employer] Other 03-23-2022 15:30-0500 Diastolic blood pressure 82 mm[Hg] Amanda Ford Other [employer] Other 03-23-2022 15:30-0500 SaO2% (BldA) [Mass fraction] 98 % Amanda Logan Other [employer] Other 03-23-2022 15:30-0500 Systolic blood pressure 137 mm[Hg] Amanda Logan Other [employer] Other 02-08-2022 10:00-0400 Body height 180.34 cm Amanda Logan Other [employer] Other 02-08-2022 10:00-0400 Body mass index (BMI) [Ratio] 27.47 kg/m2 Amanda Logan Other [employer] Other 02-08-2022 10:00-0400 Body weight 89.36 kg Amanda Logan Other [employer] Other 02-08-2022 10:00-0400 Diastolic blood pressure 62 mm[Hg] Amanda Frod Other [employer] Other 02-08-2022 10:00-0400 Systolic blood pressure 110 mm[Hg] Amanda Ford Other [employer] Other 09-01-2021 14:38-0400 Blood Pressure Location Samir Thompson [facility] 09-01-2021 14:38-0400 Diastolic blood pressure 61 mm[Hg] [facility]ir Thompson [facility] 09-01-2021 14:38-0400 Heart rate 61 /min Samir Thompson [facility] 09-01-2021 14:38-0400 Respiratory rate 18 /min Samir Christofferson [facility] 09-01-2021 14:38-0400 SaO2% (BldA) [Mass fraction] 100 % Samir Christofferson [facility] 09-01-2021 14:38-0400 Systolic blood pressure 103 mm[Hg] Samir Christofferson [facility] 07-24-2021 14:39-0400 Blood Pressure Location Samir Christofferson [facility] 07-24-2021 14:39-0400 Diastolic blood pressure 77 mm[Hg] Samir Christofferson [facility] 07-24-2021 14:39-0400 Heart rate 65 /min Samir Christofferson [facility] 07-24-2021 14:39-0400 Respiratory rate 18 /min Samir Christofferson [facility] 07-24-2021 14:39-0400 SaO2% (BldA) [Mass fraction] 100 % Samir Christofferson [facility] 07-24-2021 14:39-0400 Systolic blood pressure 115 mm[Hg] Samir Christofferson [facility] 07-16-2021 11:00-0400 Body height 180.34 cm Amanda Ford Other [employer] Other 07-16-2021 11:00-0400 Body mass index (BMI) [Ratio] 29.15 kg/m2 Amanda Ford Other [employer] Other 07-16-2021 11:00-0400 Body weight 94.8 kg Amanda Ford Other [employer] Other 07-16-2021 11:00-0400 Diastolic blood pressure 64 mm[Hg] Amanda Logan Other [employer] Other 07-16-2021 11:00-0400 SaO2% (BldA) [Mass fraction] 98 % Amanda Logan Other [employer] Other 07-16-2021 11:00-0400 Systolic blood pressure 102 mm[Hg] Amanda Logan Other [employer] Other 05-08-2020 08:20-0500 Body Temperature 97.7 [degF] [facility], [place] 05-08-2020 08:20-0500 BP Diastolic 89 mm[facility]Hg] [facility] [place] 05-08-2020 08:20-0500 BP Systolic 156 mm[Hg] [facility] [place] [place] 05-08-2020 08:20-0500 Pulse (Heart Rate) 101 /min [place] 05-08-2020 08:20-0500 Pulse Oximetry 96 % [facility] [place] 05-08-2020 08:20-0500 Respiratory Rate 19 /min [place] 05-06-2020 08:51-0500 BMI (Body Mass Index) 58.86 kg/m2 [facility] [place] 05-06-2020 08:51-0500 Body weight [facility].42 [facility] [place] 05-06-2020 08:51-0500 Height 180.3 [place] 04-22-2020 13:30-0500 BMI (Body Mass Index) 61.79 kg/m2 [address] 04-22-2020 13:30-0500 Body Temperature 97.11 [degF] [address], [place] 04-22-2020 13:30-0500 Body weight 200.[address] , [place] 04-22-2020 13:30-0500 BP Diastolic 90 mm[Hg] [facility] , [place] 04-22-2020 13:30-0500 BP Systolic 148 mm[Hg] [address] , [place] 04-22-2020 13:30-0500 Height 180.[address] , [place] 04-22-2020 13:30-0500 Pulse (Heart Rate) 104 /min [address], [place] 04-22-2020 13:30-0500 Pulse Oximetry 97 % [address] 04-22-2020 13:30-0500 Respiratory Rate 18 /min [address] Encounters Encounter Date Encounter Type Care Provider Facility Start: 01-09-2025 End: 01-09-2025 Clinisync Result Encounter Jojo OGDEN Work Phone: [facility] External [facility] Unsolicited Start: 01-09-2025 End: 01-09-2025 Clinisync Result Encounter Jojo OGDEN Work Phone: [facility] External [facility] Unsolicited Start: 01-04-2025 End: 01-04-2025 Orders Only Krystyna Dick RN [facility] Comment on above: Previous gastric byp ass affecting , antepartum (Primary Dx); Hypothyroidism affecting in second trimester; 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 ([facility]); Obesity affecting in second trimester, unspecified obesity type Start: 01-03-2025 End: 01-03-2025 ambulatory NO PCP NO PCP [facility] Start: 01-03-2025 End: 01-03-2025 Telephone encounter Roslyn Griffin RN [facility] [place] Start: 12-19-2024 End: 12-19-2024 Bamboo flowsheet Jojo OGDEN Work Phone: [facility] Start: 12-19-2024 End: 12-19-2024 Bamboo flowsheet Jojo OGDEN Work Phone: [facility] Start: 12-19-2024 End: 12-19-2024 Office outpatient visit 15 minutes Jojo OGDEN Work Phone: [facility] Comment on above: 22 weeks gestation o f ([facility]); Second trimester ([facility]); Thyroid disease ; H/O gastric sleeve; H/O iron deficiency anemia; Diabetes mellitus screening Start: 12-19-2024 End: 12-19-2024 ambulatory JOJO DEVLIN Not Available Start: 12-15-2024 End: 12-18-2024 Clinisync Result Encounter Les Juan DO Work Phone: [facility] External Department Unsolicited Start: 12-15-2024 End: 12-18-2024 Clinisync Result Encounter Les Juan DO Work Phone: [facility] External Department Unsolicited Start: 12-05-2024 End: 12-05-2024 Office consultation new/estab patient 80 min Latricia Lindquist MD Work Phone: [facility] Comment on above: 20 weeks gestation o f (Primary Dx); Previous gastric bypass affecting , antepartum; Obesity affecting in second trimester, unspecified obesity type; Hypothyroidism affecting in second trimester; 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 ([facility]); headache in second trimester Start: 12-05-2024 End: 12-05-2024 Orders Only Chiquita Shen RN M[facility]- [facility] at [facility] Comment on above: Previous gastric byp ass affecting , antepartum (Primary Dx); Hypothyroidism affecting in second trimester; 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 ([facility]); Obesity affecting in second trimester, unspecified obesity type; Encounter for supervision of resulting from assisted reproductive technology, antepartum Start: 12-04-2024 End: 12-04-2024 ambulatory LES JUAN Not Available Start: 12-02-2024 End: 12-03-2024 Patient encounter procedure Eduardo A Visci DO -[facility] - O/P Start: 12-02-2024 End: 12-03-2024 ambulatory Amanda Ford APRN Work Phone: [facility] Work Phone: Start: 12-02-2024 End: 12-03-2024 External Result Encounter Eduardo A Visci DO Work Phone: [facility] External Department Unsolicited Start: 12-02-2024 End: 12-03-2024 External Result Encounter Eduardo A Visci DO Work Phone: [facility] External Department Unsolicited Start: 12-01-2024 Non-patient / Non-visit ([place]) Elizabeth MCDERMOTT -[facility] Work Phone: Start: 11-30-2024 End: 11-30-2024 ambulatory Amanda Ford APRN Work Phone: [facility] Work Phone: Start: 11-30-2024 End: 11-30-2024 Departed Referred Chris Chapman DO -[facility] Start: 11-30-2024 Non-patient / Non-visit Chris Chapman DO -[facility] [employer] [facility] Work Phone: Start: 11-20-2024 End: 11-20-2024 Bamboo flowsheet Les Juan DO Work Phone: [facility] Start: 11-20-2024 End: 11-21-2024 Bamboo flowsheet Les Juan DO Work Phone: [facility] Start: 11-20-2024 End: 11-20-2024 Clinisync Result Encounter Les Juan DO Work Phone: [facility] External Department Unsolicited Start: 11-20-2024 End: 11-21-2024 External Result Encounter Les Juan DO Work Phone: [facility] External Department Unsolicited Start: 11-20-2024 Non-patient / Non-visit Les [facility] Work Phone: Start: 11-20-2024 End: 11-20-2024 Patient encounter procedure Les Monsivaiso DO Work Phone: [facility] Start: 11-20-2024 End: 11-20-2024 Periodic preventive med est patient 18-39 yrs Les Monsivaiso DO Work Phone: [facility] Comment on above: Well woman exam with routine gynecological exam; Exposure to STD; Second trimester ([facility]); 18 weeks gestation of ([facility]); Need for maternal serum alpha-protein (MSAFP) screening ([facility]); Screening, , for anatomic survey ([facility]); Thyroid disease Start: 11-20-2024 End: 11-20-2024 ambulatory LES MONSIVAISO Not Available Start: 11-17-2024 Non-patient / Non-visit Chris Chapman [facility] Work Phone: Start: 10-26-2024 End: 10-26-2024 Orders Only Not In System Ref Prov [facility]- [facility] Start: 10-22-2024 End: 10-22-2024 Office outpatient visit 15 minutes Les Martinez DO Work Phone: [facility] Comment on above: 13 weeks gestation o f ([facility]); Second trimester ([facility]); Thyroid disease ; H/O gastric sleeve; H/O iron deficiency anemia; resulting from in vitro fertilization in first trimester ([facility]) Start: 10-22-2024 End: 10-22-2024 ambulatory LESEarl MONSIVAISO Not Available Start: 10-18-2024 End: 10-18-2024 Emergency department patient visit Amanda Ford APRN Work Phone: -Emergency Room Work Phone: Start: 10-10-2024 End: 10-10-2024 Clinisync Result Encounter Les Martinez DO Work Phone: [facility] External Department Unsolicited Start: 10-10-2024 End: 10-10-2024 Clinisync Result Encounter Les Martinez DO Work Phone: [facility] External Department Unsolicited Start: 09-26-2024 End: 09-26-2024 ambulatory Amanda Logan Facility:[facility] Start: 09-20-2024 End: 09-20-2024 Office outpatient visit 5 minutes [facility] Juan Nurse [facility] Comment on above: GA: 9w2d Start: 09-20-2024 End: 09-20-2024 ambulatory DARLEEN SINCLAIR Not Available Start: 09-03-2024 End: 09-03-2024 Nursing evaluation of patient and report Us Tech 1 [facility] Work Phone: [facility] Comment on above: Early stage of pregn paulo ([facility]) Start: 09-03-2024 End: 09-03-2024 ambulatory SHELLYMIRIAM HERNANDEZ Facility:[facility] Start: 08-28-2024 End: 08-28-2024 Nursing evaluation of patient and report [facility] 2 [facility] Work Phone: [facility] Comment on above: resulting from assisted reproductive technology in first trimester ([facility]) Start: 08-28-2024 End: 08-28-2024 ambulatory SHELLY Yecenia DAVID Facility:[facility] Start: 08-24-2024 End: 08-24-2024 Telephone encounter Shelly Hernandez HORSE DOCTOR.KITCH[employer] HEL[employer] HANDYMAN Work Phone: [facility] Comment on above: Patient Question Start: 08-23-2024 End: 08-24-2024 Telephone encounter Shelly Hernandez HORSE DOCTOR.KITCH[employer] HEL[employer] HANDYMAN Work Phone: [facility] Comment on above: Pain Start: 08-22-2024 End: 08-22-2024 Bamboo flowsheet Darleen Sinclair MD Work Phone: [facility] Start: 08-22-2024 End: 08-22-2024 Bamboo flowsheet Darleen Sinclair MD Work Phone: [facility] Start: 08-22-2024 End: 08-22-2024 Office outpatient visit 25 minutes Darleen Sinclair MD Work Phone: [facility] Comment on above: Abnormal thyroid fun ction test (Primary Dx); H/O gastric bypass; 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CMS/HCC); Vitamin D deficiency Start: 08-22-2024 End: 08-22-2024 ambulatory DARLEEN SINCLAIR Not Available Start: 08-20-2024 End: 08-20-2024 Telemedicine consultation with patient Shelly G David HORSE DOCTOR.K[employer] HEL[employer] HANDYMAN Work Phone: [facility] Start: 08-20-2024 End: 08-20-2024 ambulatory Shelly Hernandez HORSE DOCTOR.KITCH[employer] HEL[employer] HANDYMAN Work Phone: [facility] Comment on above: 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) (Primary Dx) Start: 08-18-2024 End: 08-23-2024 ambulatory Shelly Hernandez HORSE DOCTOR.KITCH[employer] HEL[employer] HANDYMAN Work Phone: [facility] Comment on above: Ultrasound Start: 08-17-2024 End: 08-17-2024 ambulatory Amanda Ford Facility:[facility] Start: 08-16-2024 End: 08-16-2024 Telephone encounter Shelly Hernandez HORSE DOCTOR.K[employer] HEL[employer] HANDYMAN Work Phone: [facility] Comment on above: positive for pregnan cy Start: 08-15-2024 End: 08-15-2024 Telephone encounter Shelly Hernandez HORSE DOCTOR.KITCH[employer] HEL[employer] HANDYMAN Work Phone: [facility] Comment on above: Patient Question Start: 08-15-2024 End: 08-15-2024 ambulatory Shelly Hernandez Facility:[facility] Start: 08-13-2024 End: 08-13-2024 ambulatory Shelly Hernandez Facility:[facility] Start: 07-31-2024 End: 07-31-2024 ambulatory SELF Facility:[facility] Start: 07-31-2024 End: 07-31-2024 Patient encounter procedure Andrology Hide Inspector Work Phone: [facility] Comment on above: Procreative manageme nt (Primary Dx) Start: 07-30-2024 End: 07-30-2024 Telephone encounter Shelly Hernandez APRN.KITCHEN HELP HANDYMAN Work Phone: [facility] Comment on above: Patient Question Start: 07-25-2024 End: 07-25-2024 ambulatory SELF Facility:[facility] Start: 07-07-2024 End: 07-07-2024 ambulatory MIKEY TORRES Facility:[facility] Start: 07-07-2024 End: 07-07-2024 Patient encounter procedure Andrology Hide Inspector Work Phone: [facility] Comment on above: Procreative manageme nt (Primary Dx) Encounter for artifi cial insemination (Primary Dx) Start: 07-06-2024 End: 07-06-2024 Telephone encounter Shelly Hernandez APRN.KITCHEN HELP HANDYMAN Work Phone: [facility] Comment on above: Patient calling back /re iui 07/07 unsure Start: 07-05-2024 End: 07-06-2024 Telephone encounter Ignacio Guy MD Work Phone: [facility] Comment on above: re iui this wknd/has cervical polyp question Start: 07-04-2024 End: 07-04-2024 Telephone encounter Shelly Hernandez APRN.KITCHEN HELP HANDYMAN Work Phone: [facility] Comment on above: Treatment Planning Start: 07-04-2024 End: 07-11-2024 ambulatory Shelly Hernandez HORSE DOCTOR.KITCHEN HELP HANDYMAN Work Phone: [facility] Comment on above: Ovulating Start: 07-04-2024 End: 07-04-2024 Patient encounter procedure Us Tech 3 [facility] Beac Work Phone: [facility] Start: 07-02-2024 End: 07-02-2024 ambulatory SHELLY HERNANDEZ Facility:[facility] Start: 06-29-2024 End: 06-29-2024 ambulatory SHELLY GONZALEZKEY Facility:[facility] Start: 06-23-2024 End: 06-29-2024 ambulatory Shelly Gonzalezkey HORSE DOCTOR.KITCHEN HELP HANDYMAN Work Phone: [facility] Comment on above: Negative t est and possible hematoma Start: 06-09-2024 End: 06-09-2024 ambulatory IGNACIO GUY Facility:[facility] Start: 06-09-2024 End: 06-09-2024 Patient encounter procedure Andrology Hide Inspector Work Phone: [facility] Comment on above: Procreative manageme nt (Primary Dx) Female infertility ( Primary Dx) Start: 06-05-2024 End: 06-07-2024 ambulatory Shelly Hernandez HORSE DOCTOR.KITCHEN HELP HANDYMAN Work Phone: [facility] Start: 06-05-2024 End: 06-07-2024 Patient encounter procedure Shelly Hernandez APRN.KITCHEN HELP HANDYMAN Work Phone: [facility] Comment on above: IUI appointment Start: 05-22-2024 End: 05-23-2024 ambulatory Shelly G David HORSE DOCTOR.KITCHEN HELP HANDYMAN Work Phone: [facility] Comment on above: Progesterone results Start: 05-21-2024 End: 05-21-2024 ambulatory Shelly Hernandez Facility:[facility] Start: 05-18-2024 End: 05-18-2024 ambulatory SHELLYMIRIAM HERNANDEZ Facility:[facility] Start: 05-09-2024 End: 05-09-2024 ambulatory Shelly Gonzalezkey HORSE DOCTOR.KITCHEN HELP HANDYMAN Work Phone: [facility] Comment on above: Reproductive mgmt, 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) Start: 05-09-2024 End: 05-09-2024 Telemedicine consultation with patient Shelly Hernandez MELY.KITCHEN HELP HANDYMAN Work Phone: [facility] Start: 05-06-2024 End: 05-07-2024 ambulatory Shelly Hernandez APRN.KITCHEN HELP HANDYMAN Work Phone: [facility] Comment on above: Consent form Start: 05-02-2024 End: 05-02-2024 Telemedicine consultation with patient Saúl Enriquez PhD Work Phone: [facility] Comment on above: Bipolar 1 disorder ( Multi) (Primary Dx); Infertility counseling Start: 05-02-2024 End: 05-02-2024 ambulatory SAÚL Agustin [facility] Ambulatory Start: 04-26-2024 End: 04-26-2024 ambulatory [facility] Work Phone: Start: 04-26-2024 End: 04-26-2024 Patient encounter procedure [facility] Work Phone: Start: 04-24-2024 End: 04-24-2024 ambulatory SHELLY DAVID Facility:[facility] Start: 04-23-2024 End: 04-23-2024 ambulatory [facility] Work Phone: Start: 04-23-2024 End: 04-23-2024 Patient encounter procedure [facility] Work Phone: Start: 04-02-2024 End: 04-03-2024 ambulatory Shelly Yecenia David HORSE DOCTOR.KITCHEN HELP HANDYMAN Work Phone: [facility] Comment on above: Genetic testing Start: 03-09-2024 End: 03-09-2024 ambulatory Shelly G David HORSE DOCTOR.KITCHEN HELP HANDYMAN Work Phone: [facility] Comment on above: Reproductive mgmt, 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); Special screening examination for infectious diseases; Encounter for other genetic testing of female for procreative management Start: 03-09-2024 End: 03-09-2024 Telemedicine consultation with patient Shelly Hernandez MELY.KITCHEN HELP HANDYMAN Work Phone: [facility] Start: 02-29-2024 End: 02-29-2024 ambulatory SHELLY DAVID Facility:[facility] Start: 02-28-2024 End: 02-28-2024 ambulatory IGNACIO GUY Facility:[facility] Start: 02-28-2024 End: 02-28-2024 Patient encounter procedure Ignacio Attaran MD Work Phone: [facility] Comment on above: Encounter for male f actor 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 (Primary Dx) Start: 02-27-2024 End: 02-27-2024 ambulatory Amanda Ford APRN Work Phone: [facility] Work Phone: Start: 02-27-2024 End: 02-27-2024 Patient encounter procedure Amanda Ford APRN Work Phone: [facility] Work Phone: Start: 02-20-2024 Non-patient / Non-visit [facility] Work Phone: Start: 02-20-2024 [...] Department Unsolicited Start: 01-17-2024 End: 01-17-2024 ambulatory HORSE DOCTOR Amanda Ford Work Phone: [facility] Work Phone: Start: 01-17-2024 End: 01-17-2024 Patient encounter procedure HORSE DOCTORTanja Patel Merylrbacher Work Phone: [facility] Work Phone: Start: 01-10-2024 Non-patient / Non-visit HORSE DOCTORTanja Patel Merylrbacher Work Phone: [facility] Work Phone: Start: 12-20-2023 End: 12-20-2023 ambulatory HORSE DOCTORTanja Patel Rosarioacher Work Phone: [facility] Work Phone: Start: 12-20-2023 End: 12-20-2023 Patient encounter procedure HORSE DOCTORTanja Patel Merylrbacher Work Phone: [facility] Work Phone: Start: 12-09-2023 ambulatory Romeo Santana [facility] Start: 12-07-2023 Non-patient / Non-visit HORSE DOCTORTanja Patel Rosarioacher Work Phone: [facility] Work Phone: Start: 12-07-2023 End: 12-07-2023 Admission to same day surgery center HORSE DOCTOR Amanda Rosarioacher Work Phone: [facility] Start: 12-07-2023 End: 12-07-2023 ambulatory HORSE DOCTOR Amanda Rosarioacher Work Phone: [facility] Work Phone: Start: 12-01-2023 End: 12-01-2023 ambulatory HORSE DOCTOR Amanda Rosarioacher Work Phone: [facility] Work Phone: Start: 12-01-2023 End: 12-01-2023 Patient encounter procedure HORSE DOCTOR Amanda Rosarioacher Work Phone: [facility] Work Phone: Start: 11-28-2023 End: 11-28-2023 ambulatory HORSE DOCTORTanja Patel Logan Work Phone: [facility] Work Phone: Start: 11-28-2023 End: 11-28-2023 Patient encounter procedure HORSE DOCTOR Amnada Rosariosudhakar Work Phone: [facility] Work Phone: Start: 11-02-2023 End: 11-02-2023 Emergency department patient visit Amanda Ford Facility:[facility] Start: 11-01-2023 End: 11-01-2023 ambulatory HORSE DOCTORTanja Patel Logan Work Phone: [facility] Work Phone: Start: 11-01-2023 End: 11-01-2023 Patient encounter procedure HORSE DOCTORTanja Ford Work Phone: [facility] Work Phone: Start: 10-26-2023 End: 10-26-2023 ambulatory HORSE DOCTORTanja Patel Logan Work Phone: [facility] Work Phone: Start: 10-26-2023 End: 10-26-2023 Patient encounter procedure HORSE DOCTOR Amanda Logan Work Phone: [facility] Work Phone: Start: 10-13-2023 End: 10-13-2023 ambulatory [facility] Work Phone: Start: 10-13-2023 End: 10-13-2023 Patient encounter procedure [facility] Work Phone: Start: 09-15-2023 Non-patient / Non-visit [facility] Work Phone: Start: 06-08-2023 End: 06-08-2023 ambulatory [facility] Work Phone: Start: 06-08-2023 End: 06-08-2023 Patient encounter procedure [facility] Work Phone: Start: 05-17-2023 End: 05-17-2023 ambulatory Amanda Ford Other [employer] Other Start: 05-17-2023 Office outpatient visit 15 minutes Romeo Santana [facility] Start: 05-17-2023 Telephone encounter Amanda Janet her [facility] Start: 05-17-2023 End: 05-17-2023 Patient encounter procedure [facility] Start: 04-28-2023 End: 04-28-2023 ambulatory Amanda Ford Other [employer] Other Start: 04-28-2023 Telephone encounter Amanda Janet her [facility] Start: 04-22-2023 End: 04-22-2023 ambulatory Amanda Ford Other [employer] Other Start: 04-22-2023 Telephone encounter Amanda Janet her [facility] Start: 04-19-2023 End: 04-19-2023 ambulatory Amanda Ford Other [employer] Other Start: 04-19-2023 Telephone encounter Amanda Janet her [facility] [address] Start: 04-14-2023 End: 04-14-2023 ambulatory Amanda Ford Other [employer] Other Start: 04-14-2023 Telephone encounter Amanda Janet her [facility] Start: 03-17-2023 End: 03-17-2023 ambulatory Romeo Santana Other [employer] Other Start: 03-17-2023 Telephone encounter Romeo Esther [facility] Start: 02-07-2023 End: 02-07-2023 ambulatory Amanda Merylrbacher Other [employer] Other Start: 02-07-2023 Office outpatient visit 15 minutes Petr Lay [facility] Start: 02-07-2023 Telephone encounter Amanda Shethfelecia her [facility] Start: 01-27-2023 End: 01-27-2023 ambulatory Amanda Merylrbacher Other [employer] Other Start: 01-27-2023 Telephone encounter Amanda Shethfelecia her [facility] [place] Start: 01-19-2023 End: 01-19-2023 ambulatory Amanda Rohrbacher Other [employer] Other Start: 01-19-2023 Telephone encounter Amanda Shethfelecia her [facility] Start: 01-13-2023 End: 01-13-2023 ambulatory Amanda Rohrbacher Other [employer] Other Start: 01-13-2023 Telephone encounter Amanda Gonzales her [facility] Start: 01-10-2023 End: 01-10-2023 ambulatory Amanda Rohrbacher Other [employer] Other Start: 01-10-2023 Telephone encounter Amanda Gonzales her [facility] Start: 01-06-2023 End: 01-06-2023 ambulatory Amanda Rohrbacher Other [employer] Other Start: 01-06-2023 Telephone encounter Amanda Shethsarahac her [facility] Start: 12-27-2022 End: 12-27-2022 ambulatory Petr Lay Other [employer] Other Start: 12-27-2022 Office outpatient visit 15 minutes Petr Lay [facility] [place] Start: 11-10-2022 End: 11-10-2022 ambulatory Amanda Hahnr Other [employer] Other Start: 11-10-2022 Telephone encounter Amanda Shethfelecia her [facility] [place] Start: 10-21-2022 End: 10-21-2022 ambulatory Amanda Hahnr Other [employer] Other Start: 10-21-2022 Telephone encounter Amanda Shethfelecia her [facility] Start: 10-11-2022 End: 10-11-2022 ambulatory Petr Lay Other [employer] Other Start: 10-11-2022 Office consultation new/estab patient 40 min Petr Lay [facility] Start: 09-30-2022 End: 09-30-2022 ambulatory Amanda Rosarioacher Other [employer] Other Start: 09-30-2022 Office outpatient visit 15 minutes Amanda Ford [facility] Start: 08-25-2022 End: 08-25-2022 ambulatory Amanda Ponceacher Other [employer] Other Start: 08-25-2022 Office outpatient visit 15 minutes Amanda Ponceacher [facility] [place] Start: 08-20-2022 End: 08-20-2022 ambulatory Amanda Shethrbacher Other [employer] Other Start: 08-20-2022 Office outpatient visit 15 minutes Amanda Logan [facility] Start: 07-19-2022 End: 07-19-2022 ambulatory Amanda Logan Other [employer] Other Start: 07-19-2022 Telephone encounter Amanda Gonzales her [facility] Start: 07-08-2022 End: 07-08-2022 ambulatory Amanda Shethbilly Other [employer] Other Start: 07-08-2022 Telephone encounter Amanda Gonzales her [facility] Start: 06-23-2022 End: 06-23-2022 ambulatory HORSE DOCTORTanja Patel Logan Work Phone: [facility] Work Phone: Start: 06-23-2022 End: 06-23-2022 Patient encounter procedure HORSE DOCTOR Amanda Logan Work Phone: [facility] [place] Work Phone: Start: 06-17-2022 End: 06-17-2022 ambulatory Amanda Shethbilly Other [employer] Other Start: 06-17-2022 Telephone encounter Amanda Shethsarahsari her [employer] Start: 06-16-2022 End: 06-16-2022 ambulatory HORSE DOCTOR Amanda Logan Work Phone: [facility] Work Phone: Start: 06-16-2022 End: 06-16-2022 Patient encounter procedure HORSE DOCTOR Amanda Logan Work Phone: [facility] [place] Work Phone: Start: 06-10-2022 End: 06-11-2022 Evaluation and management of inpatient MD Robin Appiah Work Phone: [facility] Work Phone: Start: 06-10-2022 observation encounter MD Estrada Appiah Work Phone: [facility] Work Phone: Start: 06-09-2022 End: 06-09-2022 ambulatory MD Robin Appiah Work Phone: [facility] Work Phone: Start: 06-09-2022 End: 06-09-2022 Patient encounter procedure MD Robin Appiah Work Phone: [facility] [place] Work Phone: Start: 04-26-2022 End: 04-26-2022 ambulatory Amanda Ford Other [employer] Other Start: 04-26-2022 Telephone encounter Amanda Janet her [facility] Start: 04-23-2022 End: 04-23-2022 ambulatory Amanda Ford Other [employer] Other Start: 04-23-2022 Telephone encounter Amanda Janet her [facility] Start: 04-21-2022 End: 04-21-2022 Departed Referred MD Robin Appiah Work Phone: [facility] Work Phone: Start: 04-21-2022 End: 04-21-2022 ambulatory MD Robin Appiah Work Phone: [facility] Work Phone: Start: 04-21-2022 Office outpatient visit 15 minutes Amanda Ford [facility] Start: 04-20-2022 End: 04-20-2022 ambulatory Amanda Ford Other [employer] Other Start: 04-20-2022 Telephone encounter Amanda Shethsarahsari her [facility] [place] Start: 04-13-2022 End: 04-13-2022 ambulatory Amanda Logan Other [employer] Other Start: 04-13-2022 Telephone encounter Amanda Shethsarahsari her [employer] Start: 04-10-2022 End: 04-10-2022 Emergency department patient visit MD Robin Appiah Work Phone: [facility] Work Phone: Start: 04-08-2022 End: 04-08-2022 Emergency department patient visit MD Robin Appiah Work Phone: [facility] Work Phone: Start: 03-30-2022 End: 03-30-2022 ambulatory Amanda Ford Other [employer] Other Start: 03-30-2022 Telephone encounter Amanda Shethfelecia her [facility] [place] Start: 03-23-2022 End: 03-23-2022 Patient encounter procedure MD Robin Appiah Work Phone: [facility] [place] Start: 03-23-2022 End: 03-23-2022 ambulatory Amanda Ford Other [employer] Other Start: 03-23-2022 Office outpatient visit 15 minutes Amanda Ford [facility] [place] Start: 03-17-2022 End: 03-17-2022 ambulatory Amanda Ford Other [employer] Other Start: 03-17-2022 Telephone encounter Amanda Shethfelecia her [facility] [place] Start: 02-08-2022 End: 02-08-2022 ambulatory Amanda Ford Other [employer] Other Start: 02-08-2022 Office outpatient visit 25 minutes Amanda Ford [facility] Start: 09-01-2021 End: 09-01-2021 Patient encounter procedure Samir Thompson [facility] Start: 08-25-2021 End: 08-25-2021 Patient encounter procedure Samir Thompson [facility] Start: 08-06-2021 End: 08-06-2021 Patient encounter procedure Samir Thompson [facility] Start: 07-24-2021 End: 07-24-2021 Patient encounter procedure Samir Thompson [facility] Start: 07-23-2021 End: 07-23-2021 ambulatory Amanda Ford Other [employer] Other Start: 07-23-2021 Telephone encounter Amanda Gonzales her [employer] Start: 07-16-2021 End: 07-16-2021 ambulatory Amanda Ford Other [employer] Other Start: 07-16-2021 Office outpatient ne w 30 minutes Amanda Ford [facility] Start: 03-30-2021 End: 03-30-2021 Emergency department patient visit ROBIN APPIAH [facility] Start: 05-06-2020 End: 05-08-2020 ambulatory RASHARD OLIVERA [facility] Start: 05-06-2020 End: 05-08-2020 Subsequent hospital visit by physician Rashard Olivera Work Phone: [facility] Comment on above: Post-op pain (Primar y Dx) Start: 05-02-2020 End: 05-03-2020 Patient encounter procedure MACKENZIE BRITO [facility] Start: 05-02-2020 End: 05-02-2020 Subsequent hospital visit by physician Michael Covmay Screening Schedule MICHAEL Covid Screening Comment on above: Pre-op testing (Prim cj Dx) Start: 04-22-2020 End: 04-25-2020 ambulatory RASHARD Gilmore [facility] Start: 04-22-2020 End: 04-27-2020 ambulatory RASHARD Gilmore [facility] Start: 04-22-2020 End: 04-24-2020 Subsequent hospital visit by physician Lam C-Arm 2 [facility] Comment on above: Arrived Start: 04-22-2020 End: 04-26-2020 Subsequent hospital visit by physician Martita Pat 2 MARTITA Pre-Admit Testing Procedures Date Procedure Procedure Detail Performing Clinician Start: 01-09-2025 ALL CBC WITH AUTO DIFF Jojo OGDEN Work Phone: Start: 01-09-2025 GLUCOSE 1 HOUR Jojo Fuentes Work Phone: Start: 12-19-2024 Urnls dip stick/tabl et rgnt non-auto w/o micrscp Jojo OGDEN Work Phone: Start: 12-15-2024 [facility] UA (CLEAN/CATCH) BIT BENDER/MICRO IF IND. Les Mosquedazio DO Work Phone: Start: 12-15-2024 [facility] URINE MICROSCOPIC ONLY Les Mosquedazio DO Work Phone: Start: 12-02-2024 Urnls dip stick/tabl et rgnt auto w/o microscopy Eduardo Cruz DO Work Phone: Start: 11-20-2024 RECURRENT VAGINITIS (HTRX) Les Monsivaiso DO Work Phone: Start: 11-20-2024 ALL THYROID STIM HORMONE Les Juan DO Work Phone: Start: 11-20-2024 Urnls dip stick/tabl et rgnt non-auto w/o micrscp Les Juan DO Work Phone: Start: 10-22-2024 Urnls dip stick/tabl et rgnt non-auto w/o micrscp Les Juan DO Work Phone: Start: 10-18-2024 UNLISTED LAB TEST Not I n System Ref Prov Start: 10-18-2024 Bacteria identificat ion test Amanda Logan HORSE DOCTOR Work Phone: Start: 10-18-2024 Determination of kendrick wth of fungi Amanda Logan HORSE DOCTOR Work Phone: Start: 10-18-2024 Trichomonas vaginali s detection Amanda Logan HORSE DOCTOR Work Phone: Start: 10-18-2024 Urine culture Amandarufino Ford HORSE DOCTOR Work Phone: Start: 10-18-2024 Diagnostic ultrasoun d of gravid uterus Amanda Logan HORSE DOCTOR Work Phone: Start: 10-16-2024 UNLISTED LAB TEST [...] after 1st trimest 04/18 gestation Shelly Hernandez HORSE DOCTOR.[employer] HANDY[employer] Work Phone: Start: 08-28-2024 Us preg uterus after 1st trimest 04/18 gestation Shelly Hernandez HORSE DOCTOR.[employer] Work Phone: Start: 07-04-2024 Us pelvic nonobstetr ic real-time image complete Ignacio Guy MD Work Phone: Start: 04-02-2024 Antibody screen SHELLY HERNANDEZ Comment on above: Order Comment: Speci men Type: BLOOD SPECIMEN Ordering Facility: [facility] Address: [address] [place] [address] Performed By: #### T SPN #### [facility] CLIA [id number] [address] [place] [address] [place] Start: 02-20-2024 IGP,APTIMA [...] Work Phone: Start: 05-07-2020 Radex esophagus Rashard Gilmore Arias Work Phone: Start: 05-07-2020 Basic metabolic pane l calcium total Rashard Gilmore Olivera Work Phone: Start: 05-07-2020 Blood count complete automated Rashard Gilmore Olivera Work Phone: Start: 05-06-2020 Basic metabolic pane l calcium total Rashard Gilmore Olivera Work Phone: Start: 05-06-2020 Blood count complete automated Rashard Olivera Work Phone: Start: 05-06-2020 End: 05-06-2020 GASTRECTOMY SLEEVE LAPAROSCOPIC ROBOTIC Rashard Gilmore Olivera Work Phone: Start: 05-06-2020 Urine test visual color cmprsn meths Rashard Gilmore Arias Work Phone: Start: 05-06-2020 Level iv surg pathol ogy gross&microscopic exam Rashard Olivera Work Phone: Start: 04-22-2020 Radiologic exam ches t 2 views Rashard Gilmore Olivera Work Phone: Start: 04-22-2020 Assay of nicotine Rashad Gilmore Olivera Work Phone: Start: 04-22-2020 Basic metabolic pane l calcium total Rashard Gilmore Olivera Work Phone: Start: 04-22-2020 Blood count complete automated Rashard Olivera Work Phone: Start: 04-22-2020 Prothrombin time Narendra Olivera Work Phone: Start: 04-22-2020 Thromboplastin time partial plasma/whole blood Rashard Olivera Work Phone: Start: 04-22-2020 Ecg routine ecg w/le ast 12 lds i&r only Rashard Olivera Work Phone: Start: 04-22-2020 EKG REPORT Hpf Wyattni ng Cholecystectomy Samir robertson Comment on above: 2015 Plan of Treatment Date Care Activity Detail Author Start: 2070 RSV Vaccine (1 - 1-dose 75+ series) RSV Vaccine (1 - 1-dose 75+ series) [facility] Start: 2045 Zoster Vaccines (1 of 2) Zoster Vaccines (1 of 2) [facility] Start: 12-25-2032 DTaP,Tdap and Td Vaccines (2 - Td or Tdap) DTaP,Tdap and Td Vaccines (2 - Td or Tdap) [facility] Start: 12-25-2032 DTaP/Tdap/Td Vaccines (2 - Td or Tdap) DTaP/Tdap/Td Vaccines (2 - Td or Tdap) [facility] Start: 12-25-2032 Urine microalbumin profile DTaP,Tdap,Td Vaccine (2 - Td or Tdap) [facility] Start: 02-19-2027 Screening for malignant neoplasm of cervix [facility] Start: 12-05-2025 Adult BMI Screening Adult BMI Screening [facility] Start: 12-05-2025 Tobacco Screening Tobacco Screening [facility] Start: 12-05-2025 End: 12-05-2025 US [...] technology, antepartum Expected: 12/05/2025 (Approximate), Expires: 12/05/2025 [employer] Work Phone: Comment on above: Expected: 12/05/2025 (Approximate), Expi res: 12/05/2025 Start: 08-21-2025 End: 08-21-2025 Patient encounter procedure [facility] Start: 02-20-2025 End: 02-20-2025 Patient encounter procedure [facility] Start: 02-07-2025 End: 02-07-2025 Patient encounter procedure 02/07/2025 9:45 AM EDT Appointment [facility] [place] [address] [place] [phone] [facility] [place] Start: 02-03-2025 End: 01-04-2026 US MFM with [...] encounter procedure 01/16/2025 11:20 AM EDT Routine [facility] HERNANDEZ [address] [phone] Mima Duenas, [employer]AK[employer] HELPER [address] [place] [phone] [facility] [place] [facility] Start: 01-03-2025 End: 01-03-2025 Patient encounter procedure 01/03/2025 2:15 PM EDT Appointment [facility] [place] [address] [place] [phone] [facility] [place] Start: 12-19-2024 End: 12-19-2025 CBC panel - Blood by Automated count CBC Lab Routine Diabetes mellitus screening Expected: 12/19/2024 (Approximate), Expires: 12/19/2025 [facility] Work Phone: Comment on above: Expected: 12/19/2024 (Approximate), Expi res: 12/19/2025 Start: 12-19-2024 End: 12-19-2025 Measurement of glucose 1 hour after glucose challenge for glucose tolerance test Glucose tolerance, 1 hour Lab Routine Diabetes mellitus screening Expected: 12/19/2024 (Approximate), [facility]: [facility] Comment on above: Expected: 12/19/2024 (Approximate), Expi res: 12/19/2025 Start: 12-19-2024 End: 12-19-2024 Patient encounter procedure GUDELIA HERNANDEZ Comment on above: Arrived Start: 12-17-2024 COVID-19 Vaccine () COVID-19 Vaccine () [facility] Start: 12-17-2024 Influenza vaccination [facility] Start: 12-05-2024 End: 12-05-2024 Patient encounter procedure [facility] Start: 12-04-2024 End: 12-04-2024 Professional / ancillary services management 12/04/2024 8:30 AM EDT Ancillary Procedure GUDELIA HERNANDEZ [address] [place] [address] [place] [address] GUDELIA HERNANDEZ Start: 12-02-2024 Hospital admission [facility] Start: 12-02-2024 [facility] Start: 11-30-2024 Bacteria identified in Urine by Culture Urine Culture [facility] Start: 11-30-2024 End: 11-30-2024 Urine culture [facility] Start: 11-20-2024 End: 12-21-2024 Alpha fetoprotein, maternal Alpha fetoprotein, maternal Lab Routine Need for maternal serum alpha-protein (MSAFP) screening ([facility]) Expected: 11/20/2024 (Approximate), Expires: 12/21/2024 [facility] Comment on above: Expected: 11/20/2024 (Approximate), Expi res: 12/21/2024 Start: 11-20-2024 End: 02-20-2025 US for US OB 14+ weeks anatomy scan Imaging Routine Screening, , for anatomic survey ([facility]) Expected: 11/20/2024 (Approximate), Expires: 02/20/2025 [facility] Comment on above: Expected: 11/20/2024 (Approximate), Expi res: 02/20/2025 Start: 11-20-2024 End: 11-20-2024 Patient encounter procedure [facility] Comment on above: Arrived Start: 10-22-2024 End: 10-22-2024 Patient encounter procedure 10/22/2024 11:20 AM EDT Routine [facility] OB [address] [place] [phone] Les Martinez DO [address] [place] [address] [facility] Start: 10-18-2024 Bacteria identified in Urine by Culture Urine Culture [facility] Start: 10-18-2024 Genital Culture Genital Culture [facility] Start: 10-18-2024 Urine culture [facility] Start: 10-18-2024 [facility] Start: 09-20-2024 End: 09-20-2025 ABO/Rh ABO/Rh Lab Routine Missed menses , unspecified gestational age Expected: 09/20/2024 (Approximate), Expires: 09/20/2025 [facility] Comment on above: Expected: 09/20/2024 (Approximate), Expi res: 09/20/2025 Start: 09-20-2024 End: 09-20-2025 Blood type and Indirect antibody screen panel - Blood Type and screen Lab Routine Missed menses , unspecified gestational age Expected: 09/20/2024 (Approximate), Expires: 09/20/2025 [facility] Work Phone: Comment on above: Expected: 09/20/2024 (Approximate), Expi res: 09/20/2025 Start: 09-20-2024 End: 09-20-2025 Drugs of abuse panel - Urine by Screen method Rapid drug screen, urine Lab Routine , unspecified gestational age Encounter for supervision of normal first in first trimester Expected: 09/20/2024 (Approximate), Expires: 09/20/2025 [facility] Comment on above: Expected: 09/20/2024 (Approximate), Expi res: 09/20/2025 Start: 09-13-2024 End: 09-13-2024 ambulatory 09/13/2024 2:30 PM EDT Initial [facility] [address] [address] [facility] Start: 09-13-2024 End: 09-13-2024 Professional / ancillary services management 09/13/2024 2:00 PM EDT Ancillary Procedure [facility] [address] [address] [facility] Start: 09-03-2024 End: 09-03-2024 Nursing evaluation of patient and report Repro[facility] Endocrinology [facility] Comment on above: scan ob scan, non ivf Start: 08-22-2024 End: 08-22-2025 25-hydroxyvitamin D3 [Mass/volume] in Serum or Plasma Vitamin D 25 hydroxy Lab Routine H/O gastric bypass Vitamin D deficiency Expected: 08/22/2024 (Approximate), Expires: 08/22/2025 [facility] Comment on above: Expected: 08/22/2024 (Approximate), Expi res: 08/22/2025 Start: 08-22-2024 End: 08-22-2025 Cobalamin (Vitamin B12) [Mass/volume] in Serum or Plasma Vitamin B12 Lab Routine H/O gastric bypass Expected: 08/22/2024 (Approximate), Expires: 08/22/2025 [facility] Comment on above: Expected: 08/22/2024 (Approximate), Expi res: 08/22/2025 Start: 08-22-2024 End: 08-22-2025 Thiamine (aka Vitamin B1) Thiamine (aka Vitamin B1) Lab Routine H/O gastric bypass Expected: 08/22/2024 (Approximate), Expires: 08/22/2025 [facility] Comment on above: Expected: 08/22/2024 (Approximate), Expi res: 08/22/2025 Start: 08-22-2024 End: 08-22-2025 Thyrotropin [Units/volume] in Serum or Plasma TSH Lab Routine Abnormal thyroid function test Expected: 08/22/2024 (Approximate), Expires: 08/22/2025 [facility] Comment on above: Expected: 08/22/2024 (Approximate), Expi res: 08/22/2025 Start: 08-22-2024 End: 08-22-2025 Thyroxine (T4) free [Mass/volume] in Serum or Plasma T4, free Lab Routine Abnormal thyroid function test Expected: 08/22/2024 (Approximate), Expires: 08/22/2025 [facility] Comment on above: Expected: 08/22/2024 (Approximate), Expi res: 08/22/2025 Start: 08-22-2024 End: 08-22-2025 Triiodothyronine (T3) Free [Mass/volume] in Serum or Plasma T3, free Lab Routine Abnormal thyroid function test Expected: 08/22/2024 (Approximate), Expires: 08/22/2025 [facility] Work Phone: Comment on above: Expected: 08/22/2024 (Approximate), Expi res: 08/22/2025 Start: 08-22-2024 End: 08-22-2024 Patient encounter procedure 08/22/2024 10:00 AM EDT Office Visit [facility] END[facility] [address] [place] [phone] Darleen Sinclair MD [address] [place] [address] Arrived [facility] END[facility] Comment on above: Arrived Start: 08-20-2024 End: 08-20-2025 OBSTETRIC ULTRASOUND WHI OBSTETRIC ULTRASOUND WHI Anc Imaging Routine 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) Expected: 08/20/2024, Expires: 08/20/2025 [facility] Work Phone: Comment on above: Expected: 08/20/2024, Expires: Start: 08-20-2024 End: 08-20-2024 ambulatory 08/20/2024 8:30 AM EDT [facility] [facility] [address] [place] [address] Shelly Hernandez APRN.KITCHEN HELP HANDYMAN [address] [place] [address] preg appt [facility] Comment on above: preg appt Start: 07-07-2024 End: 07-07-2024 Patient encounter procedure [facility] Comment on above: donor thaw iui d Start: 05-09-2024 End: 05-09-2024 ambulatory 05/09/2024 8:00 AM [facility] [address] [place] [address] Shelly Hernandez APRN.KITCHEN HELP HANDYMAN [address] [place] [address] donor sperm teach [facility] Comment on above: donor sperm teach Start: 04-26-2024 Patient referral [facility] Work Phone: Start: 03-11-2024 End: 06-10-2024 25-hydroxyvitamin D3 [Mass/volume] in Serum or Plasma VITAMIN D 25 HYDROXY Lab Routine Reproductive mgmt, 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 Expected: 03/11/2024, Expires: 06/10/2024 [facility] Comment on above: Expected: 03/11/2024, Expires: Start: 03-11-2024 End: 06-10-2024 CARRIER SCREEN, EXPANDED CARRIER SCREEN, EXPANDED Lab Routine Encounter for other genetic testing of female for procreative management Expected: 03/11/2024, Expires: 06/10/2024 [facility] Comment on above: Expected: 03/11/2024, Expires: Start: 03-11-2024 End: 06-10-2024 Chlamydia trachomatis+Neisseria gonorrhoeae DNA [Presence] in Unspecified specimen by AC with probe detection GONORRHEA/CHLAMYDIA NAAT Lab Routine Special screening examination for infectious diseases Expected: 03/11/2024, Expires: 06/10/2024 [facility] Comment on above: Expected: 03/11/2024, Expires: Start: 03-11-2024 End: 06-10-2024 Cytomegalovirus IgG Ab [Units/volume] in Serum or Plasma CMV IGG ANTIBODY BL Lab Routine Special screening examination for infectious diseases Expected: 03/11/2024, Expires: 06/10/2024 [facility] Comment on above: Expected: 03/11/2024, Expires: Start: 03-11-2024 End: 06-10-2024 Cytomegalovirus IgM Ab [Units/volume] in Serum or Plasma CMV IGM AB Lab Routine Special screening examination for infectious diseases Expected: 03/11/2024, Expires: 06/10/2024 [facility] Comment on above: Expected: 03/11/2024, Expires: Start: 03-11-2024 End: 06-10-2024 Hemoglobin A1c in Blood HEMOGLOBIN A1C Lab Routine Reproductive mgmt, 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 Expected: 03/11/2024, Expires: 06/10/2024 [facility] Comment on above: Expected: 03/11/2024, Expires: Start: 03-11-2024 End: 06-10-2024 Hepatitis B virus core Ab [Presence] in Serum HEPATITIS B CORE ANTIBODY TOTAL Lab Routine Special screening examination for infectious diseases Expected: 03/11/2024, Expires: 06/10/2024 [facility] Comment on above: Expected: 03/11/2024, Expires: Start: 03-11-2024 End: 06-10-2024 Hepatitis B virus surface Ag [Presence] in Serum HEPATITIS B SURFACE ANTIGEN Lab Routine Special screening examination for infectious diseases Expected: 03/11/2024, Expires: 06/10/2024 [facility] Comment on above: Expected: 03/11/2024, Expires: Start: 03-11-2024 End: 06-10-2024 Hepatitis C virus Ab [Presence] in Serum HEPATITIS C ANTIBODY IA WITH CONFIRMATION Lab Routine Special screening examination for infectious diseases Expected: 03/11/2024, Expires: 06/10/2024 [facility] Comment on above: Expected: 03/11/2024, Expires: Start: 03-11-2024 End: 06-10-2024 HIV 1+2 Ab [Presence] in Serum or Plasma by Immunoassay HIV 1/2 COMBO WITH REFLEX TO DIFFERENTIATION Lab Routine Special screening examination for infectious diseases Expected: 03/11/2024, Expires: 06/10/2024 [facility] Comment on above: Expected: 03/11/2024, Expires: Start: 03-11-2024 End: 06-10-2024 RUBELLA IGG ANTIBODY RUBELLA IGG ANTIBODY Lab Routine Special screening examination for infectious diseases Expected: 03/11/2024, Expires: 06/10/2024 [facility] Comment on above: Expected: 03/11/2024, Expires: Start: 03-11-2024 End: 06-10-2024 SYPHILIS TREPONEMAL W/REFLEX SYPHILIS TREPONEMAL W/REFLEX Lab Routine Special screening examination for infectious diseases Expected: 03/11/2024, Expires: 06/10/2024 [facility] Comment on above: Expected: 03/11/2024, Expires: Start: 03-11-2024 End: 06-10-2024 TYPE + SCREEN TYPE + SCREEN Blood Bank Routine Reproductive mgmt, 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 Expected: 03/11/2024, Expires: 06/10/2024 [facility] Comment on above: Expected: 03/11/2024, Expires: Start: 03-11-2024 End: 06-10-2024 VARICELLA ZOSTER IGG VARICELLA ZOSTER IGG Lab Routine Special screening examination for infectious diseases Expected: 03/11/2024, Expires: 06/10/2024 [facility] Work Phone: Comment on above: Expected: 03/11/2024, Expires: Start: 03-09-2024 End: 03-09-2024 ambulatory 03/09/2024 10:00 AM [facility] [address] [place] [address] Shelly Hernandez APRN.KITCHEN HELP HANDYMAN [address] [place] [address] Donor sperm teach [facility] Comment on above: Donor sperm teach Start: 02-20-2024 End: 02-20-2024 Patient encounter procedure 02/20/2024 2:50 PM EST Office Visit [facility] [address] [address] Les Martinez DO [address] [place] [address] Arrived [facility] Comment on above: Arrived Start: 12-18-2023 Covid-19 Vaccine () Covid-19 Vaccine () [facility] Start: 12-18-2023 Covid-19 Vaccine () Covid-19 Vaccine () [facility] Start: 12-18-2023 Influenza vaccination Influenza Vaccine (#1) [facility] Start: 12-07-2023 End: 12-07-2023 [facility] Start: 06-15-2022 [facility] Start: 06-14-2022 [facility] Start: 06-13-2022 [facility] Start: 06-12-2022 [facility] Start: 06-11-2022 End: 06-11-2022 [facility] Start: 06-10-2022 Hospital admission [facility] Start: 06-10-2022 [facility] Start: 06-10-2022 [facility] Start: 06-09-2022 [facility] Start: 04-21-2022 Bacteria identified in Urine by Culture Urine Culture [facility] Start: 04-10-2022 Bacteria identified in Urine by Culture Urine Culture [facility] Start: 05-16-2020 End: 05-16-2020 Office Visit 05/16/2020 Office Visit Bariatrics Rashard Olivera, [address] [facility] [address] [place] [id number] Camille Linton Invasive Bariatric Surg Start: 05-06-2020 End: 05-06-2020 Hospital Encounter [facility] Comment on above: XI LAPAROSCOPIC ROBOTIC GASTRIC BYPASS R OUX-EN-Y, LIVER BIOPSY, EGD- GI UNIT SCHEDULED. Start: 05-02-2020 End: 05-01-2021 COVID-19 COVID-19 Lab Routine Pre-op testing Expected: 05/02/2020, Expires: 05/01/2021 [place], [place] Comment on above: Expected: 05/02/2020, Expires: 2 Start: 05-02-2020 End: 05-02-2020 Office Visit [facility] Invasive Bariatric Surg Start: 01-11-2020 TSH Qn TSH testing [place], [place] Start: 12-18-2019 Influenza vaccination Flu vaccine (#1) [place], [place] Start: 2016 Screening for malignant neoplasm of cervix [facility] Start: 2014 DTaP,Tdap and Td Vaccines (1 - Tdap) DTaP,Tdap and Td Vaccines (1 - Tdap) [facility] Start: 2014 DTaP/Tdap/Td vaccine (1 - Tdap) DTaP/Tdap/Td vaccine (1 - Tdap) [place] Start: 2014 Hepatitis B Vaccine (1 of 3 - 19+ 3-dose series) Hepatitis B Vaccine (1 of 3 - 19+ 3-dose series) [facility] Start: 2014 Hepatitis B Vaccines (1 of 3 - 19+ 3-dose series) Hepatitis B Vaccines (1 of 3 - 19+ 3-dose series) [facility] Start: 2014 Urine microalbumin profile DTaP,Tdap,Td Vaccine (1 - Tdap) [facility] Start: 2013 Adult BMI Follow Up Plan Adult BMI Follow Up Plan [facility] Start: 2013 Adult BMI Screening Adult BMI Screening [facility] Start: 2013 Anxiety Screening Anxiety Screening [facility] Start: 2013 Depression Screening Depression Screening [facility] Start: 2013 Hepatitis C screening Hepatitis C Screening [facility] Start: 2013 HIV screening HIV Screening [facility] Start: 2010 HIV screening HIV screen [place], [place] Start: 2008 Varicella vaccination Varicella Vaccines (1 of 2 - 13+ 2-dose series) [facility] Start: 2007 Depression Screening Depression Screening [facility] Start: 2007 Tobacco Screening Tobacco Screening [facility] Start: 2006 HPV vaccine (1 - 2-dose series) HPV vaccine (1 - 2-dose series) [place], [place] Start: 1996 MMR Vaccines (1 of 1 - Standard series) MMR Vaccines (1 of 1 - Standard series) [facility] Start: 1996 Varicella vaccine (1 of 2 - 2-dose childhood series) Varicella vaccine (1 of 2 - 2-dose childhood series) [place], [place] Start: 1995 Hepatitis C screening Hepatitis C screen [place], [place] Start: 1995 HIV screening HIV Screening [facility] Start: 1995 Lipid panel Lipid Panel [facility] Start: 1995 Yearly Adult Physical Yearly Adult Physical [facility] aPTT in Platelet poo r plasma by Coagulation assay [facility] Bacteria identified in Genital specimen by Aerobe culture [facility] Bacteria identified in Urine by Culture Urine culture Microbiology Routine Missed menses Ordered: 09/20/2024 [facility] Comment on above: Ordered: 09/20/2024 Calcitriol [Mass/vol ume] in Serum or Plasma [facility] CBC W Auto Different ial panel - Blood CBC and differential Lab Routine Missed menses , unspecified gestational age Ordered: 09/20/2024 [facility] Comment on above: Ordered: 09/20/2024 CHLAMYDIA TRACHOMATI S (GENITO/STI) CHLAMYDIA TRACHOMATIS (GENITO/STI) Lab Routine Exposure to STD Ordered: 11/20/2024 [facility] Comment on above: Ordered: 11/20/2024 Continuous pulse oximetry Pulse oximetry, continuous Respiratory Care Routine Every 4hr until discontinued starting 05/06/2020 [place] Comment on above: Every 4hr until discontinued starting CT Abdomen and Pelvi s WO and W contrast IV [facility] Cytology Cervical or vaginal smear or scraping study Pap Smear Pathology and Cytology Routine Well woman exam with routine gynecological exam Ordered: 02/20/2024 [facility] Work Phone: Comment on above: Ordered: 02/20/2024 Electromyography [facility] F5 gene mutations fo und [Identifier] in Blood or Tissue by Molecular genetics method Nominal [facility] Factor VIII: C assay [facility] Glucose measurement estimated from glycated hemoglobin [facility] Hemoglobin A1c/Hemoglobin.total in Blood [facility] Hemoglobin A1c/Hemoglobin.total in Blood Hemoglobin A1c Lab Routine Missed menses , unspecified gestational age Ordered: 09/20/2024 [facility] Comment on above: Ordered: 09/20/2024 Hepatitis B virus priest rface Ag [Presence] in Serum or Plasma by Immunoassay Hepatitis B surface antigen Lab Routine Missed menses , unspecified gestational age Ordered: 09/20/2024 [facility] Comment on above: Ordered: 09/20/2024 Hepatitis C virus Ab [Presence] in Serum or Plasma by Immunoassay Hepatitis C antibody Lab Routine Missed menses , unspecified gestational age Ordered: 09/20/2024 [facility] Comment on above: Ordered: 09/20/2024 HIV-1/HIV-2 antigen/antibody combination immunoassay HIV-1 and HIV-2 antibodies Lab Routine Missed menses , unspecified gestational age Ordered: 09/20/2024 [facility] Comment on above: Ordered: 09/20/2024 INR in Platelet poor plasma by Coagulation assay [facility] Mullerian inhibiting substance [Mass/volume] in Serum or Plasma [facility] Nebulizer therapy HHN Treatment Respiratory Care Routine TID until discontinued [facility] [employer] Comment on above: TID until discontinued starting 05/06/19 21 Neisseria gonorrhoea e DNA [Presence] in Unspecified specimen by AC with probe detection Neisseria gonorrhea DNA probe, direct Lab Routine Exposure to STD Ordered: 11/20/2024 [facility] Comment on above: Ordered: 11/20/2024 Oxygen therapy [Mini [facility] Data Set] Initiate Oxygen Therapy Protocol Respiratory Care Routine Daily until discontinued starting 05/06/2020 [employer] Comment on above: Daily until discontinued starting 2020 Patient Education [facility] Work Phone: Patient referral [facility] Work Phone: Reagin Ab [Presence] in Serum by RPR RPR Lab Routine Missed menses , unspecified gestational age Ordered: 09/20/2024 [facility] Comment on above: Ordered: 09/20/2024 Rubella antibody, IgG Rubella an tibody, IgG Lab Routine Missed menses , unspecified gestational age Ordered: 09/20/2024 [facility] Comment on above: Ordered: 09/20/2024 Spirometry panel Incentive marti metry Respiratory Care Routine Every 2hr while awake until discontinued starting 05/06/2020 [facility] MD Comment on above: Every 2hr while awake until discontinued starting 05/06/2020 SURESWAB(R) ADVANCED VAGINITIS PLUS, TMA SURESWAB(R) ADVANCED VAGINITIS PLUS, TMA Pathology and Cytology Routine Exposure to STD Ordered: 11/20/2024 [facility] Work Phone: Comment on above: Ordered: 11/20/2024 Surgical Pathology Surgical Path ology Lab Routine Release Upon Ordering for 1 Occurrences starting [facility]06[facility]2020 [facility]: Release Upon Ordering for 1 Occurrences starting 05/06/2020 End: 11-20-2025 Thyrotropin [Units/volume] in Serum or Plasma TSH Lab Routine Thyroid disease every 4 weeks for 6 Occurrences starting 11/20/2024 until 11/20/2025 [facility] Comment on above: every 4 weeks for 6 Occurrences starting 11/20/2024 until 11/20/2025 von Willebrand facto r (vWf) Ag [Units/volume] in Platelet poor plasma [facility] von Willebrand facto r (vWf) multimers in Platelet poor plasma by Immunoblot [facility] von Willebrand facto r (vWf) ristocetin cofactor actual/normal in Platelet poor plasma by Platelet aggregation [facility] Immunizations Immunization Date Immunization Notes Care Provider Fa cility 12-25-2022 tetanus toxoid, reduced diphtheria toxoid, and acellular pertussis vaccine, adsorbed Darleen Sinclair MD Work Phone: [facility] 08-19-2020 COVID-19 mRNA-1273 (Moderna) MELY Ford Work Phone: [facility] 07-22-2020 COVID-19 mRNA-1273 (Moderna) HORSE DOCTOR Amanda Logan Work Phone: [facility] Payers Date Payer Category Payer Self-pay [id number] 2022 Medicaid [id number] 2022 Medicaid [id number] 2020 Unknown [id number] 2015 Unknown [id number] 1.2.840.039039.1.13.239.2.7.3 .[id number] 1995 Unknown [id number] 2.16.840.1.368881.3.579.2.176 1995 Unknown [id number] 2.16.840.1.143349.3.579.2.175 1995 Unknown [id number] 2.16.840.1.670515.3.579.2.175 1995 Unknown [id number] 2.16.840.1.701851.3.579.2.175 1995 Unknown [id number] 2.16.840.1.898619.3.579.2.175 1995 Unknown [id number] 2.16.840.1.170433.3.579.2.124 4 1995 Unknown [id number] 2.16.840.1.162251.3.579.2.718 1995 Unknown [id number] 2.16.840.1.549814.3.579.2.718 1995 Unknown [id number] 2.16.840.1.724991.3.579.2.718 1995 Unknown [id number] 2.16.840.1.563505.3.579.2.718 1995 Unknown [id number] 2.16.840.1.664603.3.579.2.718 1995 Unknown [id number] 2.16.840.1.480543.3.579.2.718 1995 Unknown [id number] 2.16.840.1.342637.3.579.2.718 1995 Unknown [id number] 2.16.840.1.484946.3.579.2.128 6 1995 Unknown [id number] 2.16.840.1.378675.3.579.2.128 6 1995 Unknown [id number] 2.16.840.1.082176.3.579.2.125 9 1995 Unknown [id number] 2.16.840.1.767778.3.579.2.125 9 1995 Unknown [id number] 2.16.840.1.690155.3.579.2.125 9 1995 Unknown [id number] 2.16.840.1.317361.3.579.2.125 9 1995 Unknown [id number] 2.16.840.1.292351.3.579.2.125 9 1995 Unknown [id number] 2.16.840.1.157996.3.579.2.125 9 1995 Unknown [id number] 2.16.840.1.599066.3.579.2.125 9 1995 Unknown [id number] 2.16.840.1.808029.3.579.2.125 9 1995 Unknown [id number] 2.16.840.1.396438.3.579.2.128 6 Private Health Insurance [facility] [id number] Unknown [id number] 2.16.840.1.483167.19 Unknown [id number] 2.16.840.1.942622.3.579.2.531 Unknown [id number] 2.16.840.1.804886.3.579.2.531 Unknown [id number] 2.16.840.1.543716.3.579.2.531 Social History Date Type Detail Facility Start: 04-22-2020 End: 06-08-2023 Tobacco smoking status NHIS Never smoker [place], [place] Start: 04-22-2020 End: 11-28-2023 Tobacco use and exposure Never used [place] Start: 04-22-2020 End: 05-02-2020 Alcohol intake Current non-drinker of alcohol (finding) [place], [place] Start: 1995 Sex Assigned At Not on file [place] Exposure to SARS-CoV-2 (event) Not sure [place] Tobacco smoking status Never [facility] Start: 11-28-2023 End: 02-20-2024 Sex Assigned At Female [employer] Start: 1995 Sex Assigned At Female [facility] Start: 06-10-2022 Tobacco smoking status ALIS Current some day smoker [facility] Start: 04-18-2023 End: 12-07-2023 Tobacco smoking status NHIS Smoker (finding) [facility] Start: 11-28-2023 End: 10-26-2024 Tobacco smoking status ALIS Smokes tobacco daily [facility] Start: 04-18-2023 History of tobacco use Cigarette Smoker [facility] Start: 11-28-2023 End: 02-20-2024 Cigarettes smoked current (pack per day) - Reported 0.5 [facility] Start: 11-28-2023 End: 12-19-2024 Alcoholic beverage intake Ex-drinker (finding) [facility] Start: 01-10-2023 Alcohol Comment caffeine: 1-2 cups per day tea [facility] Start: 01-19-2023 Gender identity Identifies as female gender (finding) [facility] Start: 11-21-2014 End: 02-27-2024 Sex Female (finding) [facility] Tobacco smoking status NHIS Tobacco smoking consumption unknown [facility] Start: 08-01-2023 [facility] Start: 10-18-2024 End: 12-05-2024 Tobacco smoking status NHIS Ex-smoker (finding) [facility] NEGATED: Highlighted row [facility] Medical Equipment Procedure Code Equipment Code [...] FDA Start: 10-15-2019 Tendon/ligament bone anchor, non-bioabsorbable ()[id number] FDA Start: 12-07-2023 Tendon/ligament bone anchor, non-bioabsorbable ()[id number] FDA Start: 12-07-2023 Tendon/ligament bone anchor, non-bioabsorbable ()[id number] FDA Start: 12-07-2023 Tendon/ligament bone anchor, non-bioabsorbable ()[id number] FDA Start: 12-07-2023 Goals Date Patient Goal Desired Activity /State Personal health goal Functional Status Date Assessment Result Facility 06-11-2022 Functional status Patient at Baseline [facility] Work Phone: 06-10-2022 Functional status Patient at Baseline [facility] Work Phone: Mental Status Date Assessment Result Facility 06-11-2022 Cognitive function Cognitive Sta tus Patient at Baseline [facility] Work Phone: 06-10-2022 Cognitive function Cognitive Sta tus Patient at Baseline [facility] Work Phone: Clinical Notes 03-31-2022 to 01-03-2025 Telephone Encounter - Roslyn Griffin [...] follow up ultrasound. documented in this encounter [facility] 01-03-2025 Telephone encounter Note Called patient to schedule her follow up survey in 4-6 weeks per appointment tracker. No answer left message to call back to schedule the follow up ultrasound. [facility] 12-19-2024 History of Present illness [...] PLAN ICD-10-CM 1. 22 weeks gestation of ([facility]) Z3A.22 POCT urinalysis dipstick manually resulted 2. Second trimester ([facility]) Z34.92 POCT urinalysis dipstick manually resulted [...] of: MELVI Engle documented in this encounter [facility] 12-05-2024 History of Present illness Narrative [...] follows with the behavioral health up in [place] History of migraines. Has been getting some [...] mouth in the morning., Disp: , Rfl: [id number] acid ( 19) 29 mg iron- 1 [...] Calcium: recommend 1000-1200mg daily; if deficient, recommend 2648-4597 mg PO daily in divided doses Vitamin [...] 5. 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 The endbander should be made aware at the time [...] Latricia Lindquist MD, FACOG (she/hers) Maternal- Medicine [facility] [address] [facility] [address] [place] [address] This document was created with [employer] technology. Though I make every effort to review the dictation as it is transcribed, on occasion the spoken word can be misinterpreted by the technology leading to inappropriate words, phrases, or sentences. This note is addressed to the requesting provider as a consultation for clinical guidance. Specific medical abbreviations are occasionally used and those are generally approved by the [place] Citizen?Board of?Obstetrics and?Gynecology?as well as?Marilee davila abbreviations. The above plan of care was based solely on the diagnoses for which a consultation was requested. ?More frequent testing may be indicated based on her other medical/obstetrical conditions. The management of other or medical conditions is beyond the scope of requested consultation and will continue to be followed by the primary field research associate or primary care provider. Note to patient: [...] CF Have you been seen here at [facility] in a previous ? NA Recent ER visits or hospitalizations? See notes above Bring blood sugar log or meter with you today? (Please bring them with you for every visit at [facility]) NA Flu vaccine (Feb-June)? NA Any concerns that you would like me to mention to the provider today? Questions about glucose testing and her having gastric bypass surgery documented in this encounter [facility] 11-20-2024 History of Present illness Narrative Reason [...] nursing note reviewed. Exam conducted with a coat tailor present. Vitals: Estimated body mass index is [...] gonorrhea DNA probe, direct 3. Second trimester ([facility]) Z34.92 POCT urinalysis dipstick manually resulted 4. 18 weeks gestation of ([facility]) Z3A.18 5. Need for maternal serum alpha-protein (MSAFP) screening ([facility]) Z36.1 Alpha fetoprotein, maternal Alpha fetoprotein, maternal 6. Screening, , for anatomic survey ([facility]) Z36.89 US OB 14+ weeks anatomy [...] Les Martinez DO documented in this encounter [facility] 10-22-2024 History of Present illness Narrative [...] Father Delbert velarde Thyroid disease Father Delbert velrade Hypertension Father Delbert velarde Diabetes Paternal Grandfather [...] nursing note reviewed. Exam conducted with a coat tailor present. Vitals: Estimated body mass index is 31.24 kg/m as calculated from the following: Height as of 08/22/24: 5' 11 . Weight as of this encounter: 224 lb. BP: 110/62 No LMP recorded. Patient is . ASSESSMENT & PLAN ICD-10-CM 1. 13 weeks gestation of ([facility]) Z3A.13 POCT urinalysis dipstick manually resulted 2. Second trimester ([facility]) Z34.92 POCT urinalysis dipstick manually resulted 3. Thyroid disease E07.9 4. H/O gastric sleeve Z90.3 5. H/O iron deficiency anemia Z86.2 6. resulting from in vitro fertilization in first trimester ([facility]) O09.811 Return OB: Patient presents today [...] of gastric sleeve will make referral to [facility]. Documented by Mima Duenas NP on behalf of: Les Martinez DO documented in this encounter [facility] 10-18-2024 Radiology Diagnostic study note [facility] [place] [address] Ultrasound Report Signed Patient: Jaz Sanders MR#: [id number] : 1995 Acct:[id number] Age/Sex: 29 / F ADM Date: 5 Loc: ER Room: Type: [facility] ER Attending Dr: Ordering Provider: Kassidy Arriaza [...] Jr., D.O. 10/18/2024 2:21 PM Dictation Location: [place] [address] Tech: Natalie Haji Transcribed By: MAITE 10/18/24 1421 Dictated By: Sravan Dickinson Jr, DO 10/18/24 1419 Signed By: 10/18/24 1421 [facility] 09-20-2024 History of Present illness Narrative [...] screen, urine; Future Nurse Note: Patient declined Victor at this time. Patient is an IVF from [facility]. OB Intake: Patient presents today for first OB visit. Patients history has been reviewed in great detail including any potential risks. Patient signed consent forms and patient desires testing in both trimesters. Patient currently has no complaints and has been advised to drink 6-8 glasses of water a day, eat no raw or undercooked meat, and stay away from [facility]. Patient has also been advised to not [...] Marsha Asif MA documented in this encounter [facility] 09-05-2024 Note HNO ID: [id number] Author: SHELLY HERNANDEZ APRN.CNP Service: ? Author [...] 3. Cycle Day: Last menstrual period: 07/19/2024 Wendel Protocol: UNIVERSAL PROTOCOL / SAFETY CHECKLIST Procedure [...] DATE: September 05, 2024 TIME: 10:45 PM [facility] 09-03-2024 History of Present illness Narrative Jaz Sanders here today for a scan. This is her 2nd scan. History of ectopic: No History of SAB: No History of chemical - possible - not verified History of pelvic/abdominal surgeries: Yes - gall bladder and gastric sleeve LMP 4, natural cycle, date of LH surge: 07/30, IUI: 07/31 Latest Ref Rng 04/02/2024 ABO A Rh(D) Positive Antibody Screen Negative Type+Scr Expiration 04/05/2024 23:59 Varicella Zoster IgG, Qual Positive Positive Rubella IgG, Qual Positive Positive hCG levels: 08/13 - 63.6 4/30 - 160.6 5/2 - 362.7 Dating on 08/28 : Currently [...] 2024 5:39 PM documented in this encounter [facility] 09-03-2024 Note HNO ID: [id number] Author: CHARISSE WEAVER APRN.JARROD Service: ? Author Type: Nurse Practitioner [...] 63.6 4/30 - 160.6 5/2 - 362.7 Dating on 08/28 : Currently [...] Plan Move on to OB Charisse Weaver APRN.KITCHEN HELP HANDYMAN September 03, 2024 5:39 PM [facility] 08-30-2024 Note HNO ID: [id number] Author: MIKEY TORRES MD Service: ? Author Type: Physician Type: Progress Notes Filed: 08/30/2024 16:36 Note Text: Viable ratliff IUP Size equal Date. Plan: patient to follow up with her ob for care. Stacy Banuelos MD [facility] 08-30-2024 History of Present illness Narrative Viable [...] levels: 08/13 - 63.6 08/15 - 160.6 5/2 - 362.7 Dating: Currently 6w0d based off of IUI date. By Ultrasound, measuring 5w6d FHR: 100 Plan: repeat scan next week as scheduled Shelly Hernandez APRN.CNP documented in this encounter [facility] 08-28-2024 Note HNO ID: [id number] Author: SHELLY HERNANDEZ APRN.CNP Service: ? Author [...] levels: 08/13 - 63.6 08/15 - 160.6 5/2 - 362.7 Dating: Currently 6w0d based off of IUI date. By Ultrasound, measuring 5w6d FHR: 100 Plan: repeat scan next week as scheduled Shelly Hernandez APRN.CNP [facility] 08-24-2024 Telephone encounter Note spoke with Jaz, [...] open slot. Call to patient needed: no [facility] 08-24-2024 Miscellaneous Notes spoke with Jaz, she [...] schedule the patient for the following- Location: [facility] Provider: nurse Visit type: scan Reason for visit/appointment notes: scan Date: 08/28 Time (requested): 1110 If slot is full, please schedule the closest open slot. Call to patient needed: no Name: Jaz Sanders called today. : 1995 (home) [phone] (cell) Reason for call: pt called today informing the nurse she has been experiencing pain of level 4 from 1-10. Pt has been experiencing pain for 2 day. 5 weeks today. The patients preferred pharmacy has been captured for this encounter? Angella Morillo Seismographer documented in this encounter [facility] 08-24-2024 Telephone encounter Note See 08/23/24 LIBBY Ward RN August 24, 2024 1:58 PM [facility] 08-24-2024 Miscellaneous Notes See 08/23/24 LIBBY Ward RN August 24, 2024 1:58 PM Pt would like a call back documented in this encounter [facility] 08-24-2024 Telephone encounter Note Pt would like a call back [facility] 08-23-2024 Telephone encounter Note Name: Jaz Sanders called today. : 1995 (home) [phone] (cell) Reason for call: pt called today informing the nurse she has been experiencing pain of level 4 from 1-10. Pt has been experiencing pain for 2 day. 5 weeks today. The patients preferred pharmacy has been captured for this encounter? Angella Morillo Seismographer [facility] 08-23-2024 Telephone encounter Note See 08/20 Distance health visit Marianna Ward RN August 23, 2024 8:53 AM [facility] 08-23-2024 Miscellaneous Notes See 08/20 Distance health visit Marianna Ward RN August 23, 2024 8:53 AM documented in this encounter [facility] 08-22-2024 History of Present illness Narrative Jaz Sanders is a 29 y.o. female Darleen Sinclair MD presents with chief complaint of Thyroid Problem and Follow-up (1.5 YRS ) HPI: History of Present Illness The patient is a 29-year-old female who presents for a follow-up visit. She was last seen in 03/2023. She continues her regimen of levothyroxine 50 mcg daily, administered in the product development intern on an empty stomach. There have been [...] year (around 08/22/2025). documented in this encounter [facility] 08-20-2024 Note HNO ID: [id number] Author: SHELLY HERNANDEZ APRN.KITCHEN HELP HANDYMAN Service: ? Author Type: Nurse Practitioner Type: [...] visit. Either the patient or their legal community representative has been informed of the risks [...] providers Schedule with OB: 09/13 Shelly Hernandez APRN.KITCHEN HELP HANDYMAN August 20, 2024 8:33 AM Please schedule the patient for the following- Location: [place] Provider: nurse Visit type: Reason for visit/appointment notes: scan Date: 09/03 Time (requested): 1040 If slot is full, please schedule the closest open slot. Call to patient needed: no I spent a total of 30 minutes on the date of the service which included preparing to see the patient, [id number] patient care, completing clinical documentation, obtaining and/or [...] grammatical and typographical errors missed in proofreading. [facility] 08-20-2024 History of Present illness Narrative Images [...] visit. Either the patient or their legal community representative has been informed of the risks [...] reproductive technology in first trimester ([facility]) O09.811 OBSTETRIC ULTRASOUND [facility] Plan: further labwork needed: no scan scheduled: 09/03 medications to discontinue: patient to discuss status with her providers Schedule with OB: 09/13 Shelly Hernandez APRN.KITCHEN HELP HANDYMAN August 20, 2024 8:33 AM Please schedule the patient for the following- Location: [place] Provider: nurse Visit type: Reason for visit/appointment notes: scan Date: 09/03 Time (requested): 1040 If slot is full, please schedule the closest open slot. Call to patient needed: no I spent a total of 30 minutes on the date of the service which included preparing to see the patient, [id number] patient care, completing clinical documentation, obtaining and/or [...] missed in proofreading. documented in this encounter [facility] 08-16-2024 Telephone encounter Note Called patient back to phone number listed in [email or web address]-no answer. Lm for patient to look out for Mychart message. Daniel Hanna APRN.CNP August 16, 2024 5:15 PM [facility] 08-16-2024 Miscellaneous Notes Called patient back to phone number listed in [email or web address]-no answer. Lm for patient to look out for Mychart message. Daniel Hanna APRN.CNP August 16, 2024 5:15 PM Name: Jaz Sanders called today. : 1995 (home) [phone] (cell) Reason for call: pt called that she got positive test, she has been having having cramping since last night , it happens every hours for couple minutes. The patients preferred pharmacy has been captured for this encounter? yes Angella Hernándezt documented in this encounter [facility] 08-16-2024 Telephone encounter Note Name: Jaz Sanders called today. : 1995 (home) [phone] (cell) Reason for call: pt called that she got positive test, she has been having having cramping since last night , it happens every hours for couple minutes. The patients preferred pharmacy has been captured for this encounter? yes Angella Morillo Seismographer [facility] 08-15-2024 Telephone encounter Note Pt is preg and wants to know if she can take benadryl due to her having hives [facility] 08-15-2024 Miscellaneous Notes Pt is preg and wants to know if she can take benadryl due to her having hives documented in this encounter [facility] 07-31-2024 Note HNO ID: [id number] Author: DOMINGUEZ BARRY, ? Service: ? Author Type: Multi Craft Maintenance Technician Type: Progress Notes Filed: 09/05/2024 22:45 Note Text: IUI Cryobio Donor # [id number] Pre: frozen washed specimen Post: 82 M/ml, 67% Insem # 27.5 million [facility] 07-31-2024 Note HNO ID: [id number] Author: DOMINGUEZ BARRY, ? Service: ? Author Type: Multi Craft Maintenance Technician Type: Progress Notes Filed: 07/31/2024 15:26 Note Text: Thaw for IUI. Dominguez Barry [facility] 07-31-2024 History of Present illness Narrative Thaw for IUI. Dominguez Barry documented in this encounter [facility] 07-31-2024 Note HNO ID: [id number] Author: DOMINGUEZ BARRY, ? Service: ? Author Type: Multi Craft Maintenance Technician Type: Progress Notes Filed: 09/05/2024 22:45 Note Text: IUI specimen released to provider Dominguez Barry July 31, 2024 3:24 PM [facility] 07-31-2024 Note HNO ID: [id number] Author: MUSTAPHA TELLO MA Service: ? Author Type: Shore Hand Dredge Or Barge Type: Progress Notes Filed: 07/31/2024 15:12 Note Text: Patient verified by full name and date of . Jaz Sanders is here today for an IUI. LMP: 07/19/2024 Natural cycle IUI Timed With: Ovulation Predictor Kit , Date: 07/30/2024 Photographic Laboratory Technician offered: Patient declines Mustapha Tello MA July 31, 2024 3:12 PM [facility] 07-30-2024 Telephone encounter Note patient's OPK today was dark but not positive Plan: test again tomorrow. 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, schedule IUI the same day Shelly Hernandez APRN.CNP July 30, 2024 6:00 PM [facility] 07-30-2024 Miscellaneous Notes patient's OPK today was dark but not positive Plan: test again tomorrow. 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, schedule IUI the same day Shelly Hernandez APRN.CNP July 30, 2024 6:00 PM N- ivf Pt has questions regarding IUI documented in this encounter [facility] 07-30-2024 Telephone encounter Note N- ivf Pt has questions regarding IUI [facility] 07-08-2024 Note HNO ID: [id number] Author: NICHELLE GONZALEZ, ? Service: ? Author Type: Multi Craft Maintenance Technician Type: Progress Notes Filed: 07/19/2024 07:50 Note Text: IUI Cryobio #[id number] Washed frozen specimen Post: 31 m/ml, 77% Insem#: 10.8 million [facility] 07-08-2024 History of Present illness Narrative IUI Cryobio #[id number] Washed frozen specimen Post: 31 m/ml, 77% Insem#: 10.8 million IUI specimen released to provider Nichelle Gonzalez July 07, 2024 10:10 AM documented in this encounter [facility] 07-07-2024 Note HNO ID: [id number] Author: NICHELLE GONZALEZ, ? Service: ? Author Type: Multi Craft Maintenance Technician Type: Progress Notes Filed: 07/19/2024 07:50 Note Text: IUI specimen released to provider Nichelle Gonzalez July 07, 2024 10:10 AM [facility] 07-07-2024 Note HNO ID: [id number] Author: MIKEY TORRES MD Service: ? Author [...] Cycle Day: 14 Last menstrual period: 06/24/2024 Wendel Protocol: UNIVERSAL PROTOCOL / SAFETY CHECKLIST Procedure [...] primary surgeon/proceduralist with assistance. Stacy Banuelos MD [facility] 07-07-2024 Procedure note WHI JAMEL IUI PROCEDURE NOTE Date: 07/07/2024 Primary Proceduralist: Nakia Duran MD Consents and Labels Consent Signed: Informed Consent obtained and on the chart Labels Verified With Patient: Yes Indications: Jaz Sanders, is a 29 year old No obstetric history on file. female here today for intrauterine insemination. IUI # 2. Cycle Day: 14 Last menstrual period: 06/24/2024 Wendel Protocol: UNIVERSAL PROTOCOL / SAFETY CHECKLIST Procedure [...] primary surgeon/proceduralist with assistance. Stacy Banuelos MD [facility] 07-07-2024 Procedure note I JAMEL IUI PROCEDURE NOTE Date: 07/07/2024 Primary Proceduralist: Nakia Duran MD Consents and Labels Consent Signed: Informed Consent obtained and on the chart Labels Verified With Patient: Yes Indications: Jaz Sanders, is a 29 year old No obstetric history on file. female here today for intrauterine insemination. IUI # 2. Cycle Day: 14 Last menstrual period: 06/24/2024 Wendel Protocol: UNIVERSAL PROTOCOL / SAFETY CHECKLIST Procedure [...] Stacy Banuelos MD documented in this encounter [facility] 07-07-2024 Note HNO ID: [id number] Author: NICHELLE GONZALEZ, ? Service: ? Author Type: Multi Craft Maintenance Technician Type: Progress Notes Filed: 07/07/2024 09:41 Note Text: Thaw for IUI Nichelle Gonzalez [facility] 07-07-2024 History of Present illness Narrative Thaw for IUI Nichelle Gonzalez documented in this encounter [facility] 07-06-2024 Telephone encounter Note Called the pt back. Pt had an US done 07/04/24--Possible small 4 mm intracervical canal polyp. No other abnormal findings. Advised to move on with IUI tomorrow. FYI: Dr. Guy and TY Vega. Please let me know if any different instructions. Becki Isaacs PA-C July 06, 2024 3:26 PM [facility] 07-06-2024 Miscellaneous Notes Called the pt back. [...] Please call patient. documented in this encounter [facility] 07-06-2024 Telephone encounter Note Patient states she is calling back unsure about if she is okay to proceed with iui tomorrow. Please call patient. [facility] 07-06-2024 Telephone encounter Note See other TE for 07/04 Marianna Ward RN July 06, 2024 11:17 AM [facility] 07-06-2024 Miscellaneous Notes See other TE for 07/04 Marianna Ward RN July 06, 2024 11:17 AM On day 11 now, inquiring about if okay to proceed with iui with cervical polyp. Patient believes it will be tomorrow or Tuesday for iui- inquiring if polyp needs to be removed first. documented in this encounter [facility] 07-05-2024 Telephone encounter Note On day 11 now, inquiring about if okay to proceed with iui with cervical polyp. Patient believes it will be tomorrow or Tuesday for iui- inquiring if polyp needs to be removed first. [facility] 07-04-2024 Telephone encounter Note Spoke with Jaz regarding multiple questions. #1 - ultrasound results LMP 2/10, natural cycle, LH surge 06/08 -IUI 06/09 [...] Hernandez APRN.CNP July 04, 2024 7:30 PM [facility] 07-04-2024 Miscellaneous Notes Spoke with Jaz regarding multiple questions. #1 - ultrasound results LMP 2/10, natural cycle, LH surge 06/08 -IUI 06/09 [...] 2024 7:30 PM documented in this encounter [facility] 07-04-2024 Note HNO ID: [id number] Author: IGNACIO GUY MD Service: ? Author Type: Physician Type: Progress Notes Filed: 07/04/2024 16:27 Note Text: 1 [facility] 07-04-2024 History of Present illness Narrative 1 documented in this encounter [facility] 06-09-2024 Note HNO ID: [id number] Author: IGNACIO GUY MD Service: ? Author [...] Cycle Day: 13 Last menstrual period: 05/28/2024 Wendel Protocol: UNIVERSAL PROTOCOL / SAFETY CHECKLIST Procedure [...] was discussed with the patient or authorized community representative. The patient or authorized community representative has agreed to proceed with the sensitive examination. (Sensitive examination includes inspection and/or palpation of the breasts, pelvis, prostate and anorectal regions) Patient declined coat tailor. Vidhi Sheldon MD IUI IUI Date: 06/09/24 [...] stopped. Will get pelivc scan here at [facility] if not with this IUI prior pt proceeding with another attmept at IUI. Ignacio Guy MD June 09, 2024 12:30 PM SIGNATURE: Vidhi Sheldon MD PATIENT NAME: Jaz Sanedrs DATE: June 09, 2024 TIME: 12:01 PM [facility] 06-09-2024 Procedure note WHI JAMEL IUI PROCEDURE NOTE Date: 06/09/2024 Primary Proceduralist: Vidhi Sheldon MD Consents and Labels Consent Signed: Informed Consent obtained and on the chart Labels Verified With Patient: Yes Indications: Jaz Sanders, is a 29 year old No obstetric history on file. female here today for intrauterine insemination. IUI # 1. Cycle Day: 13 Last menstrual period: 05/28/2024 Wendel Protocol: UNIVERSAL PROTOCOL / SAFETY CHECKLIST Procedure [...] was discussed with the patient or authorized community representative. The patient or authorized community representative has agreed to proceed with the sensitive examination. (Sensitive examination includes inspection and/or palpation of the breasts, pelvis, prostate and anorectal regions) Patient declined coat tailor. Vidhi Sheldon MD IUI IUI Date: 06/09/24 [...] stopped. Will get pelivc scan here at [facility] if not with this IUI prior pt proceeding with another attmept at IUI. Ignacio Guy MD June 09, 2024 12:30 PM SIGNATURE: Vidhi Sheldon MD PATIENT NAME: Jaz Sanders DATE: June 09, 2024 TIME: 12:01 PM [facility] Work Phone: 06-09-2024 Procedure note WHI JAMEL IUI PROCEDURE NOTE Date: 06/09/2024 Primary Proceduralist: Vidhi Sheldon MD Consents and Labels Consent Signed: Informed Consent obtained and on the chart Labels Verified With Patient: Yes Indications: Jaz Sanders, is a 29 year old No obstetric history on file. female here today for intrauterine insemination. IUI # 1. Cycle Day: 13 Last menstrual period: 05/28/2024 Wendel Protocol: UNIVERSAL PROTOCOL / SAFETY CHECKLIST Procedure [...] was discussed with the patient or authorized community representative. The patient or authorized community representative has agreed to proceed with the sensitive examination. (Sensitive examination includes inspection and/or palpation of the breasts, pelvis, prostate and anorectal regions) Patient declined coat tailor. Vidhi Sheldon MD IUI IUI Date: 06/09/24 [...] stopped. Will get pelivc scan here at [facility] if not with this IUI prior pt proceeding with another attmept at IUI. Ignacio Guy MD June 09, 2024 12:30 PM SIGNATURE: Vidhi Sheldon MD PATIENT NAME: Jaz Sanders DATE: June 09, 2024 TIME: 12:01 PM documented in this encounter [facility] 06-09-2024 Note HNO ID: [id number] Author: NICHELLE GONZALEZ, ? Service: ? Author Type: Multi Craft Maintenance Technician Type: Progress Notes Filed: 06/09/2024 12:30 Note Text: IUI Cryobio #: [id number] Washed frozen sample Post: 42 m/ml, 74% Insem#: 15.5 million [facility] 06-09-2024 History of Present illness Narrative IUI Cryobio #: [id number] Washed frozen sample Post: 42 m/ml, 74% Insem#: 15.5 million IUI specimen released to provider Nichelle Gonzalez June 09, 2024 11:24 AM documented in this encounter [facility] 06-09-2024 Note HNO ID: [id number] Author: NICHELLE GONZALEZ, ? Service: ? Author Type: Multi Craft Maintenance Technician Type: Progress Notes Filed: 06/09/2024 11:48 Note Text: Thaw for IUI Nichelle Gonzalez [facility] 06-09-2024 History of Present illness Narrative Thaw for IUI Nichelle Gonzalez documented in this encounter [facility] 06-09-2024 Note HNO ID: [id number] Author: NICHELLE GONZALEZ, ? Service: ? Author Type: Multi Craft Maintenance Technician Type: Progress Notes Filed: 06/09/2024 12:30 Note Text: IUI specimen released to provider Nichelle E Larrykimberly June 09, 2024 11:24 AM [facility] 05-09-2024 Instructions Shelly Hernandez APRN.JARROD - 05/09/2024 9:08 AM EST Images from the original note were not included. [facility] DONOR SPERM HANDOUT Donor Sperm Checklist: Complete Next Steps: Progesterone blood test 6-8 days after your LH surge - please let me know the test result when you get it. IUI Procedure consent form - sent to you via Mersive today. Please sign when you can. Order sperm Financial Clearance - I sent your chart to the front elevator operator today. Treatment plan: Natural cycle/IUI x 3 cycles. Please schedule a follow up visit with Dr. Guy if you are not after 3 cycles. Sperm Ordering Instructions We need 1 vial per cycle. You will likely need 3-6 vials to establish a . You are welcome to buy more than one and store with the [facility]. Mailing address: Attention: Nichelle Gonzalez [address] [place] [address], [address] [place] [address] Storage at the [facility] is available. Fees are yearly and only start once you are not actively trying. Please ask the financial team ([phone]) for current cost information. Donor Insemination Scheduling Instructions Please call during the first business day of your menstrual cycle to let the front elevator operator know you will be testing and doing [...] please call the office to discuss. Location [facility] [address] [place] [address], [place] [address] Available every day, including weekends and holidays (except [place] and New Years.) Weekday IUI scheduling The day you get your LH surge, please call [phone] between 8:00am - 12:00pm to schedule your insemination for the next day. If you call after 12pm, we may not be able to schedule your appointment. IUI s are done by appointment only. You will make 2 appointments -an arrival time and a procedure time. [address], [place] [address] Available every day, including weekends and holidays (except [place] and New Years.) Available for IUI using fresh and frozen samples. Check in location for sperm wash and IUI: [address] [facility]. The sperm wash takes 60-90 minutes. Weekend/Holiday [...] to do another IUI: Call the front elevator operator to make sure you are financially cleared. Ask to speak to an SKYLAR to confirm your treatment plan. Important phone number: [phone] documented in this encounter [facility] 05-09-2024 Note HNO ID: [id number] Author: SHELLY HERNANDEZ APRN.CNP Service: ? Author [...] visit. Either the patient or their legal community representative has been informed of the risks [...] negative donor is a carrier of: CFTR, [id number] Vial types available: IUI and ART Considerations [...] which included preparing to see the patient, [id number] patient care, completing clinical documentation, obtaining and/or [...] team. Standard se (more content not included)... [facility] 05-09-2024 History of Present illness Narrative Images [...] visit. Either the patient or their legal community representative has been informed of the risks [...] negative donor is a carrier of: CFTR, EOV639 Vial types available: IUI and ART Considerations [...] which included preparing to see the patient, uhzk-fs-salv patient care, completing clinical documentation, obtaining and/or [...] missed in proofreading. documented in this encounter [facility] 05-02-2024 History of Present illness Narrative Psychosocial Consultation for Third Alliance Party Reproduction Virtual visit with audio and visual equipment POS 10 No SI, Falls, Tobacco use On May 02, 2024, I met virtually with Jaz and Sravna Sanders. They were referred by Shelly Hernandez at [facility] for their required psychosocial consultation regarding third republican reproduction. Relevant History Jaz, 29, and Demetrius, 26, have been together for 8.5 years and for 6.5 years. 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 Demetrius also works at that [employer] station. The couple has been trying to [...] Lynda's have already chosen a donor from [employer] in [place]. They chose this donor because he is [...] republican reproductive option. documented in this encounter [facility] Work Phone: 03-11-2024 Note HNO ID: [id number] Author: SHELLY HERNANDEZ APRN.KITCHEN HELP HANDYMAN Service: ? Author Type: Nurse Practitioner Type: [...] visit. Either the patient or their legal community representative has been informed of the risks [...] Practice cycle Plan: Episode created.Reviewed checklist - Mersive message sent Practice cycle: recommended OPKs to test for ovulation and timing of IUIs, patient to call with +OPK, confirm ovulation with progesterone level Follow up once checklist is complete to discuss test results and next steps. Shelly Hernandez APRN.KITCHEN HELP HANDYMAN March 11, 2024 10:42 PM I spent a total of 55 minutes on the date of the service which included preparing to see the patient, tslh-le-aypd patient care, completing clinical documentation, obtaining and/or [...] grammatical and typographical errors missed in proofreading. [facility] 03-11-2024 History of Present illness Narrative Images [...] visit. Either the patient or their legal community representative has been informed of the risks [...] Practice cycle Plan: Episode created.Reviewed checklist - Starteedhart message sent Practice cycle: recommended OPKs to test for ovulation and timing of IUIs, patient to call with +OPK, confirm ovulation with progesterone level Follow up once checklist is complete to discuss test results and next steps. Shelly Hernandez APRN.KITCHEN HELP HANDYMAN March 11, 2024 10:42 PM I spent a total of 55 minutes on the date of the service which included preparing to see the patient, gpon-xv-intg patient care, completing clinical documentation, obtaining and/or [...] missed in proofreading. documented in this encounter [facility] 03-09-2024 Instructions Shelly Hernandez APRN.CNP - 03/09/2024 [...] please call the office. ~Silvia Hernandez APRN.CNP [phone] Donor Sperm Checklist Donor Sperm Labs Mandatory [...] Sravan must be present Amanda Gillespie MD ([place]) - [phone] Rani Sims (Filomena Hernandez) - [phone] - virtual visit Saúl Enriquez, - virtual [...] to date). Please get scheduled with your massage therapist or pcp if needed. Practice with Ovulation Predictor Kit (OPK) First day of full flow is cycle day #1. Start using on ovulation predictor kit on cycle day 10. Use your OPK once a day, in the morning with your second urine of the day. Send in a [employer] message when you get a positive OPK. [...] Once your checklist is complete, please call [phone] to get scheduled for a donor sperm follow up appointment. Sperm Bank Website [facility] [facility] https://www.[email or web address]/ Cryobiology https://cryoNu-Med Plus.com/ [employer] https://www.cryosinternational.co m/ Wedding.com.my Cryobank https://Atossa Genetics.BitPass/ [facility] [facility] https://www.Pr[employer].BitPass/ [facility] [place] https://www.thespermbankofca.org/ [employer] Sperm Bank https://www.ISIS sentronics.BitPass/ Xytex https://www.[email or web address]/ If you would like to start browsing [...] is needed. Test: CPT Code: Blood type 91855 HIV 56941 CMV IgG 57450 CMV IgM 68066 Syphilis 44001 Hepatitis B Surface Ag 60838 Hepatitis B Core Ab, IgG and IgM 32597 Hepatitis C Ab 73871 Rubella 59887 Varicella 01119 Chlamydia 22508 Gonorrhea 57154 For the above tests, reference the diagnosis code of Z11.9 documented in this encounter [facility] 02-28-2024 Plan of care note Assessment- male [...] for three cycles. They will meet with COMMERCIAL BAKER HELPER to review the IUI checklist and sign consents. I spent a total of 45 minutes on the date of the service which included preparing to see the patient, scby-vt-fvfe patient care, completing clinical documentation, counseling and educating the patient/family/caregiver, and ordering medications, tests, or procedures. 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 They will meet with COMMERCIAL BAKER HELPER to review the IUI checklist and sign consents. I spent a total of 45 minutes on the date of the service which included preparing to see the patient, donz-oq-cnfk patient care, completing clinical documentation, counseling and educating the patient/family/caregiver, and ordering medications, tests, or procedures. Ignacio Guy MD documented in this encounter [facility] 02-28-2024 Instructions Ignacio Guy MD - 02/28/2024 2:47 PM EST Dear Jaz Sanders Using donor sperm at the [facility] requires some set up (outlined below). Requirements to use donor sperm at the [facility]: Teaching with JAMEL SKYLAR - please call [phone] to schedule a donor sperm teach with [...] to help with the donor selection process. Wannyi Carrier Screen is the test ordered. Processing time takes 2-3 weeks. If your insurance doesn't cover it, the self-pay de oliveira is ~$250. Counselor You and your partner/spouse (if applicable) must see a counselor for a donor sperm assessment. Amanda Gillespie MD ([place]) - [phone] Rani Sims ([facility]) - [phone] Doris Lama ([place]) - [phone] Consent form - must be signed by [...] Required Tests Test: CPT Code: Blood type 05733 HIV 94424 CMV IgG 07476 CMV IgM 09582 Syphilis 89845 Hepatitis B Surface Ag 73663 Hepatitis B Core Ab, IgG and IgM 28015 Hepatitis C Ab 91645 Rubella 83435 Varicella 34178 Chlamydia 19346 Gonorrhea 71483 For the above tests, reference the diagnosis code of Z31.49. Wannyi Carrier Screen - [place] will check coverage for you. For this [...] your test results into consideration. Sperm Bank [facility] [place] [facility] Cryobiology [facility]obank [facility]perm Bank Cryobank Reproductive [employer] [facility] ([facility] [place]) [facility] *Do not order any sperm until your checklist is complete. We will review ordering instructions at your follow up visit. Next Steps: Call insurance to verify coverage for donor sperm panel. Schedule donor sperm teach with my nurse practitioner, Silvia Hernandez. Ignacio Guy MD [phone] documented in this encounter [facility] 02-28-2024 Note HNO ID: [id number] Author: IGNACIO GUY MD Service: ? Author [...] has essentially azospermia. Then he saw Dr Singlteon and took clomid. He had varicocele repair later. Here to discuss use of donor sperm. Pt had gastric sleeve surgery in apr 2020 and lost 225 lbs and her periods have normalized since that time. 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 They will meet with COMMERCIAL BAKER HELPER to review the IUI checklist and sign consents. I spent a total of 45 minutes on the date of the service which included preparing to see the patient, spdi-xq-ogew patient care, completing clinical documentation, counseling and educating the patient/family/caregiver, and ordering medications, tests, or procedures. 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 They will meet with COMMERCIAL BAKER HELPER to review the IUI checklist and sign consents. I spent a total of 45 minutes on the date of the service which included preparing to see the patient, pynw-li-plfp patient care, completing clinical documentation, counseling and educating the patient/family/caregiver, and ordering medications, tests, or procedures. 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 matthias acute Novembe r 2023 2:25pm Laxity of ligament acute Novem er 2023 2:25pm Multidirectional instability of glenohumeral joint acute February 2:25pm Other instability, right shoulder acute February 26, 2 024 2:25pm Right carpal tunnel syndrome acute February 26, 2 024 2:25pm Status post arthroscopy of right shoulder acute February 27, 2024 2:25pm Status post surgery noneactive Novem wenceslao 2023 2:25pm Degenerative superior labral gvgzkcij-mm-tquvncnag (SLAP) tear of right matthias acute April 23, 2024 2:29pm Laxity of ligament acute Januar 2024 2:29pm Multidirectional instability of glenohumeral joint acute April 23, 2024 2:29pm Other instability, right shoulder acute April 23 2:29pm Right carpal tunnel syndrome acute April 23 2:29pm Status post arthroscopy of right shoulder acute April 23, 2 025 2:29pm [facility] Work Phone: 1(499) 202-422211-11-2024 Evaluation note* Diagnosis Onset Date Resolution Status Admit Date Degenerative superior labral jxelcuwq-jn-ciuzgqgyv (SLAP) tear of right matthias acute February [...] Novem wenceslao 2023 2:25pm Degenerative superior labral vxcszunz-bd-lkzmswurk (SLAP) tear of right matthias acute April 23, 025 2:29pm Laxity of ligament acute 2024 2:29pm Multidirectional instability of glenohumeral joint acute April 2:29pm Other instability, right shoulder acute April 23 2:29pm Right carpal tunnel syndrome acute April 23, 2024 2:29pm Status post arthroscopy of right shoulder acute April 23 2:29pm Acute urticaria acute April 262024 8:29am Hypothyroid acute April 26, 2024 8:29am Other chronic pain acute 2024 8:29am [facility] Work Phone: 1(804) 229-883911-04-2024 History of Present illness Narrative* Marsha Asif [...] nursing note reviewed. Exam conducted with a coat tailor present. Vitals: Estimated body mass index is [...] behalf of: TRENT Engle documented in this encounterFitzgibbon HospitalArerppoyab17-65-3410 Note [id number]09-03-2024 Evaluation note* Diagnosis Onset Date Resolution Status Admit Date Degenerative superior labral eigqinkn-au-quqovautc (SLAP) tear of right matthias acute December 20, 2023 10:11am Laxity of ligament acute Septem 2023 10:11am Multidirectional instability of glenohumeral joint acute December 20, 2023 10:11am Other instability, right shoulder acute December 19 10:11am Right carpal tunnel syndrome acute December 20, 2023 10:11am Status post arthroscopy of right shoulder acute December 19 10:11am Status post surgery noneactive Roxana mber 2023 10:11am Degenerative superior labral ikngeily-uy-hgpxkgvsg (SLAP) tear of right matthias acute January 16 024 11:58am Laxity of ligament acute Octobe r 2023 11:58am Multidirectional instability of glenohumeral joint acute January 11:58am Other instability, right shoulder acute January 16 11:58am Right carpal tunnel syndrome acute January 17, 2024 11:58am Status post arthroscopy of right shoulder acute January 16 11:58am Status post surgery noneactive Octob er 2023 11:58am Degenerative superior labral oznwiirs-ft-zzwsedtsn (SLAP) tear of right matthias acute February [...] post surgery noneactive Novem wenceslao 2023 2:25pm [facility] Work Phone: 1(839) 668-890207-17-2024 NoteEducation Materials Orthopedics Musculoskeletal Pain Musculoskeletal pain [...] mouth or applied to the skin. Take xpjz-zlc-pauyaxk and prescription medicines only as told by [...] provider. Document Revised: 08/07/2020 Document Reviewed: 07/16/2020 NuORDER Patient Education ? 2022 3seventy.[facility] [id number] Evaluation note* Encounter Date Diagnosis Assessment Notes Treatment Notes Treatment Clinical Notes Apr, Intertrigo (ICD-10 - L30.4) [employer] Other 01-30-2024 Evaluation note* Encounter Date Diagnosis [...] pain of right shoulder (ICD-10 - M25.511) [employer] Other 01-05-2024 Evaluation note* Encounter Date Diagnosis Assessment Notes Treatment Notes Treatment Clinical Notes Apr, Other iron deficiency anemia (ICD-10 - D50.8) [employer] Other 12-28-2023 Evaluation note* Encounter Date Diagnosis Assessment Notes Treatment Notes Treatment Clinical Notes Mar, Vitamin D deficiency (ICD-10 - E55.9) [employer] Other 10-23-2023 Evaluation note* Encounter Date Diagnosis [...] agreement for this and referral was given. [facility] [employer] Other 09-21-2023 Evaluation note* Encounter Date Diagnosis Assessment Notes Treatment Notes Treatment Clinical Notes Dec, Other iron deficiency anemia (ICD-10 - D50.8) Dec, Low folic acid (ICD-10 - E53.8) [employer] Other 09-11-2023 Evaluation note* Encounter Date Diagnosis [...] continue to do the exercises for strength. [employer] Other 07-06-2023 Evaluation note* Encounter Date Diagnosis Assessment Notes Treatment Notes Treatment Clinical Notes Oct, Iron deficiency (ICD-10 - E61.1) [employer] Other 06-26-2023 Evaluation note* Encounter Date Diagnosis [...] symptoms and causing pain down the arm. [employer] Other 06-15-2023 Evaluation note* Encounter Date Diagnosis [...] verbalizes understanding and agrees c tx plan. [employer] Other 05-10-2023 Evaluation note* Encounter Date Diagnosis [...] follow-up if no improvement. She verbalizes understnading. [employer] Other 05-05-2023 Evaluation note* Encounter Date Diagnosis Assessment Notes Treatment Notes Treatment Clinical Notes August, Acquired hypothyroidism (ICD-10 - E03.9) Discussed with pt symptoms and lab resutls. Discussed treatment and evaluation. Referral placed to Dr. Sinclair. 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 Patient has an appointment with her FRONT DESK ASSOCIATE next week. Educated her to go to ED if she continues to have heavy bleeding with symptoms, she verbalized understanding. We will send patient home on iron supplements and docusate as needed for constipation Patient is being discharged today. Documented By: Farhad Gallego MD 06/11/22 1306 Signed By: <Electronically signed by Farhad Gallego MD> 06/11/22 1316 [facility] Work Phone: 1(945) 750-376602-23-2023 History and physical note Author Farhad Gallego [facility] June 10, 2022 6:28pm Note Date/Time June 10, 2022 5:39pm [facility] [address] [place] [address] Hospitalist H&P Signed Patient: Jaz Sanders MR#: [id number] : 1995 Acct:[id number] Age/Sex: 27 / F Adm Date: 3 Loc: 4 Room: 3T0623-3 Type: ADM INOo Attending Dr: Farhad Gallego MD Copies to: MD Amanda Correa, HORSE DOCTOR, KITCHEN HELP HANDYMAN~ HPI DATE OF EXAMINATION: 06/10/22 CHIEF COMPLAINT: [...] % (Auto) 41.3 % (.) 06/10/22 14:51 [place] % (Auto) 6.8 % (.) 06/10/22 14:51 Eos % (Auto) 5.0 % (.) 06/10/22 14:51 Baso % (Auto) 1.8 % (.) 06/10/22 14:51 Nucleat RBC Rel Count 0.1 /100 WBC (0-0.5) 06/10/22 14:51 Neut # (Auto) 2.4 x10E3/uL (1.8-7.7) 06/10/22 14:51 Lymph # (Auto) 2.2 x10E3/uL (1.00-4.8) 06/10/22 14:51 [place] # (Auto) 0.4 x10E3/uL (0.0-0.8) 06/10/22 14:51 [...] pH 5.5 (5.0-9.0) 06/10/22 15:40 Ur Specific [place] 1.010 (1.001-1.030) 06/10/22 15:40 Urine Protein Negative [...] <Electronically signed by Farhad Gallego MD> 06/10/22 5[address] [facility] Work Phone: 1(660) 662-496701-04-2023 Evaluation note* Encounter Date Diagnosis Assessment Notes [...] for bleeding. Keep appointment with Dr. Elder. [facility] [employer] Other 12-13-2022 Evaluation note* Encounter Date Diagnosis Assessment Notes Treatment Notes Treatment Clinical Notes Mar, Arthritis of shoulder (ICD-10 - M19.019) [employer] Other 12-06-2022 Evaluation note* Encounter Date Diagnosis [...] - F90.0) [facility] due to she is currently treating her for anxiety and depression. And she has discussed this with Julieta and she had offered her treatement for this. [employer] Other 11-30-2022 Evaluation note* Encounter Date Diagnosis Assessment Notes Treatment Notes Treatment Clinical Notes Feb, Gastroesophageal ref lux disease without esophagitis (ICD-10 - K21.9) [employer] Other 10-24-2022 Evaluation note* Encounter Date Diagnosis [...] to trial the ointment. Follow-up as needed. [employer] [employer] Other 05-11-2022 NoteEchocardiology Procedure Exam Date/Time Accession # Ordering Echo Transthoracic 08/25/2021 15:36 EDT [id number] Jay DAVEY, Samir Rivera CPT code 87222 Reason for Exam (Echo Transthoracic Complete) Bradycardia;Other [...] Robin Salazar MD Transcribed by: kerry Technologist: [facility]04-21-2022 Note Echocardiology Procedure Exam Date/Time Accession # Ordering ECG Stress Exercise 08/06/2021 10:22 EDT [id number] Jay DAVEY, Samir Rivera CPT code 59516 Reason for Exam (ECG Stress Exercise) bradycardia;Other [...] Robin Salazar MD Transcribed by: nakul Technologist: [facility]03-31-2022 Evaluation note* Encounter Date Diagnosis Assessment [...] school on two different occasions.Order faxed to [employer]. Jun, Gastroesophageal reflux disease without esophagitis (ICD-10 [...] Jun, Former smoker (ICD-1 0 - Z87.891) [employer] Other Evaluation + Plan note Future Appointments Appointment Date:08/06/2021 09:30:00 AM Scheduled Provider: Location:[facility] Appointment Type:CV Stress (FT) Appointment Date:08/06/2021 11:00:00 AM Scheduled Provider: Location:[facility] Appointment Type:CV Holter/Event (FT) Future Scheduled Tests Radiology* Echo Transthoracic Complete 07/24/21 * ECG [facility] Appointment Date:08/11/2021 10:30:00 AM Scheduled Provider:Samir Thompson [facility]iology Follow Up ([facility]) [facility] Future Appointments Appointment Date:09/01/2021 02:30:00 PM Scheduled Provider:Samir Thompson MD [facility] (FT[facility] Future Appointments Appointment Date:2022 11:15:00 AM Scheduled Provider:Samir Thompson MD [facility] Follow Up ([facility] noteNo InformationNort [employer] Other evaluation noteNo assessment information available [facility] Work Phone: evaluation note* Diagnosis Onset Date Resolution Status Anemia acute Anxiety and depression acute Bipolar disorder acute Iron deficiency anemia acute [facility] Work Phone: evaluation note* Diagnosis Onset Date Resolution Status Abdominal pain acute Chills acute Constipation acute Fever acute H/O gastric sleeve acute Vomiting acute [facility] Work Phone: evaluation note* Diagnosis Onset Date Resolution Status [id number] acute Laxity of ligament acute Multidirectional instability of glenohumeral joint acute Numbness of right hand acute Other instability, right shoulder acute [facility] Work Phone: evaluation note* Diagnosis Onset Date Resolution Status [id number] acute Laxity of ligament acute Multidirectional instability of glenohumeral joint acute Numbness of right hand acute Other instability, right shoulder acute [id number] acute Laxity of ligament acute Multidirectional instability of glenohumeral joint acute Numbness of right hand acute Other instability, right shoulder acute Right carpal tunnel syndrome acute [facility] Work Phone: Evaluation note* Diagnosis Onset Date Resolution Status [id number] acute Laxity of ligament acute Multidirectional instability of glenohumeral joint acute Numbness of right hand acute Other instability, right shoulder acute [id number] acute Laxity of ligament acute Multidirectional instability of glenohumeral joint acute Numbness of right hand acute Other instability, right shoulder acute Right carpal tunnel syndrome acute [id number] acute Laxity of ligament acute Multidirectional instability of glenohumeral joint acute Other instability, right shoulder acute Right carpal tunnel syndrome acute [facility] Work Phone: Evaluation note* Diagnosis Onset Date Resolution Status [id number] acute Laxity of ligament acute Multidirectional instability of glenohumeral joint acute Numbness of right hand acute Other instability, right shoulder acute [id number] acute Laxity of ligament acute Multidirectional instability of glenohumeral joint acute Numbness of right hand acute Other instability, right shoulder acute Right carpal tunnel syndrome acute [id number] acute Laxity of ligament acute Multidirectional instability of glenohumeral joint acute Other instability, right shoulder acute Right carpal tunnel syndrome acute [id number] acute Laxity of ligament acute Multidirectional instability of glenohumeral joint acute Other instability, right shoulder acute Right carpal tunnel syndrome acute Status post arthroscopy of right shoulder acute [facility] Work Phone: Evaluation note* Diagnosis Onset Date Resolution Status [id number] acute Laxity of ligament acute Multidirectional instability of glenohumeral joint acute Numbness of right hand acute Other instability, right shoulder acute Right carpal tunnel syndrome acute [id number] acute Laxity of ligament acute Multidirectional instability of glenohumeral joint acute Other instability, right shoulder acute Right carpal tunnel syndrome acute [id number] acute Laxity of ligament acute Multidirectional instability of glenohumeral joint acute Other instability, right shoulder acute Right carpal tunnel syndrome acute Status post arthroscopy of right shoulder acute Status post surgery noneacti ve [id number] acute Laxity of ligament acute Multidirectional instability of glenohumeral joint acute Other instability, right shoulder acute Right carpal tunnel syndrome acute Status post arthroscopy of right shoulder acute Status post surgery noneacti 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 Special screening examination for infectious diseases Screening examination for unspecified infectious disease Encounter for other genetic testing of female for procreative management documented in this encounter [facility] note* Diagnosis Bipolar 1 disorder (Multi)- Primary Infertility counseling documented in this encounter [facility] Work Phone: Evaluation note* Diagnosis Treatment plan provided- Primary documented in this encounter [facility] note* Diagnosis Reproductive mgmt, 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 documented in this encounter [facility] note* Diagnosis Procreative management- Primary Unspecified procreative management documented in this encounter [facility] note* Diagnosis Female infertility- Primary Female infertility of unspecified origin documented in this encounter [facility] note* Diagnosis Fertility testing- Primary Female infertility Female infertility of unspecified origin documented in this encounter [facility] note* Diagnosis Encounter for fertility planning [Z31.89]- Primary Other specified procreative management documented in this encounter [facility] note* Diagnosis Encounter for artificial insemination- Primary Artificial insemination documented in this encounter [facility] note* Diagnosis 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)- Primary documented in this encounter [facility] note* Diagnosis 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)- Primary documented in this encounter [facility] note* Diagnosis Abnormal thyroid function test- Primary Nonspecific abnormal results of thyroid function study 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 Vitamin D deficiency [facility] Diagnosis 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) [facility] Diagnosis Early stage of (HCC) state, incidental [facility] Diagnosis Amenorrhea Absence of menstruation 9 weeks gestation of Missed menses , unspecified gestational age Encounter for supervision of normal first in first trimester [facility]* Diagnosis 13 weeks gestation of ([facility]) Second trimester ([facility]) state, incidental Thyroid disease Unspecified disorder of thyroid H/O gastric sleeve H/O iron deficiency anemia resulting from in vitro fertilization in first trimester ([facility]) documented in this encounter [facility]* Diagnosis Well woman exam with routine gynecological exam Routine gynecological examination Exposure to STD Second trimester ([facility]) state, incidental 18 weeks gestation of ([facility]) Need for maternal serum alpha-protein (MSAFP) screening ([facility]) Screening, , for anatomic survey ([facility]) Encounter for anatomic survey Thyroid disease Unspecified disorder of thyroid documented in [facility]* Diagnosis Previous gastric bypass affecting , antepartum- Primary Hypothyroidism affecting in second trimester 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 ([facility]) Obesity affecting in second trimester, unspecified obesity type Encounter for supervision of resulting from assisted reproductive technology, antepartum [facility]* Diagnosis 20 weeks gestation of - Primary Previous gastric bypass affecting , antepartum Obesity affecting in second trimester, unspecified obesity type Hypothyroidism affecting in second trimester 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 ([facility]) headache in second trimester [facility] Diagnosis 22 weeks gestation of ([facility]) Second trimester ([facility]) state, incidental Thyroid disease Unspecified disorder of thyroid H/O gastric sleeve H/O iron deficiency anemia Diabetes mellitus screening Screening for diabetes mellitus documented in [facility]* Diagnosis Previous gastric bypass affecting , antepartum- Primary Hypothyroidism affecting in second trimester 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 ([facility]) Obesity affecting in second trimester, unspecified obesity type documented in this encounter [facility] Narrative - Reported* Type Description Date Surgical History cholecystectomy 2014 Surgical History gastric sleeve 2020 [employer] Other History general Narrative - Reported* Type Description Date Medical History Hypothyroidism Medical History MNG Medical History enuresis Medical History extreme obesity Medical History GERD with esophagitis Medical History headache Medical History Goiter, nontoxic, multinodular Medical History Vitamin D deficiency Surgical History cholecystectomy 2014 Surgical History cholecystectomy 2015 Surgical History gastric sleeve 2020 Hospitalization History Anemia 05/2022 [employer] [employer] Other Hospital course Narrative No data available for this section [facility] Discharge instructions No data available for this section [facility] Discharge instructions Additional Instructions POSTOPERATIVE INSTRUCTIONS FOR SHOULDER LABRAL REPAIR Romeo Santana DO Orthopedic Surgeon [facility] GENERAL INSTRUCTIONS: Use ice packs to the [...] Romeo Santana DO Orthopedic Surgeon [facility] Office: [address] [place] [address] Office number: [phone] [facility] Work Phone: Hospital Discharge instructionsAmbulatory Orders* Referral to Allergy/Immunology Time Frame: 04/26/24, Location: None [facility] Work Phone: Hospital Discharge instructions Additional Instructions We evaluated you for your vaginal bleeding in . Your ultrasound was normal, the baby has a good heart rate, measuring at 13 weeks and 1 day. Your cervix was closed. Follow-up closely with your FRONT DESK ASSOCIATE. Return to the emergency department if you develop any worsening or concerning symptoms.[facility] Work Phone: InstructionsNot on filedocumented in this encounter [facility]ructionsNot on filedocumented in this encounter [facility] System[facility]* Attachments The following attachments cannot be sent through Care Everywhere. * Preeclampsia (Yi) [facility] SystemInstructionsNot on file documented in this encounterProSt. [facility] SystemInstructionsNot on file documented in this encounterProSt. [facility] SystemReason for referral (narrative)No reason for referral information available[facility] Work Phone: [facility] Narrative* Consult, Test, Treat (Routine) - Closed Specialty Diagnoses / Procedures Referred By Contact Referred To Contact [facility] Diagnoses Encounter for procreative management, unspecified Encounter for other procreative management Procedures ARTIFIC INSEMINATION INTRAUTERIN THAWING CRYOPRESERVED SPERM/SEMEN EACH ALIQUOT Daniel Hanna APRN.KITCHEN HELP HANDYMAN [address] [place] [id number] Phone: tel:+ [phone] fax: [phone] Reproductive Endocrinology Infertility [address] [place] [address] Phone: tel: Referral ID Status Reason Start Date Expiration Date V isits Requested Visits Authorized [id number] Closed Financial Clearance Required - Self Pay Patient Cleared - True Self-Pay required payment collected Do Not Bill Insurance - SP patient 05/17/2024 08/15/2024 2 2 [facility] for visit Narrative* Diagnostic Procedure Only (Routine) - Authorized Specialty Diagnoses / Procedures Referred By Contac t Referred To Contact [facility] Diagnoses Fertility testing Procedures PELVIC US WHI US PELVIC NONOBSTETRIC REAL-TIME IMAGE COMPLETE Ignacio Guy MD [address] [place] [address] Phone: tel: fax: [facility] [address] [place] [address] Referral ID Status Reason Start Date Expiration Date Visits Requested Visits Authorized [id number] Authorized Auto-Generate d Referral Patient Cleared - True Self-Pay required payment collected Do Not Bill Insurance - SP patient 06/09/2024 06/09/2025 2 2 [facility] for visit Narrative* Consult, Test, Treat (Routine) - Closed Specialty Diagnoses / Procedures Referred By Contact Referred To Contact [facility] Diagnoses Encounter for procreative management, unspecified Encounter for other procreative management Procedures THAWING CRYOPRESERVED SPERM/SEMEN EACH ALIQUOT ARTIFIC INSEMINATION INTRAUTERIN Daniel Hanna, HORSE DOCTOR.KITCHEN HELP HANDYMAN [address] [place] [id number] Phone: tel:[phone] fax: [phone] [facility] Endocrinology Infertility [address] [place] [address] Phone: tel: Referral ID Status Reason Start Date Expiration Date V isits Requested Visits Authorized [id number] Closed Patient Cleared - True Self-Pay required payment collected Do Not Bill Insurance - SP patient 06/29/2024 09/27/2024 2 2 [facility] for visit Narrative* Financial Clearance (Routine) - Closed Specialty Diagnoses / Procedures Referred By Saud t Referred To Contact [facility] Diagnoses Collect for IUI-D washed sample Procedures THAWING CRYOPRESERVED SPERM/SEMEN EACH ALIQUOT ARTIFIC INSEMINATION INTRAUTERIN FINANCIAL CLEARANCE PHONE CALL Self Financial Clearance Phone Screening [facility] Referral ID Status Reason Start Date Expiration Date V isits Requested Visits Authorized [id number] Closed Financial Clearance Required - Self Pay Patient Cleared - True Self-Pay required payment collected Do Not Bill Insurance - SP patient 07/25/2024 09/23/2024 2 2 [facility] for visit Narrative* Diagnostic Procedure Only (Routine) - Closed Specialty Diagnoses / Procedures Referred By Saud t Referred To Contact [facility] Diagnoses 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) Procedures OBSTETRIC ULTRASOUND WHI US PREG UTERUS AFTER 1ST TRIMEST GESTATION Shelly Hernandez APRN.KITCHEN HELP HANDYMAN [address] [place] [id number] Phone: tel: fax: [address] [address] Referral ID Status Reason Start Date Expiration Date V isits Requested Visits Authorized [id number] Closed Auto-Generate d Referral 08/20/2024 08/20/2025 1 1 [facility] for visit Narrative* Diagnostic Procedure Only (Routine) - Closed Specialty Diagnoses / Procedures Referred By Saud t Referred To Contact [facility] Diagnoses Early stage of (HCC) Procedures OBSTETRIC ULTRASOUND WHI US PREG UTERUS AFTER 1ST TRIMEST / GESTATION Shelly Hernandez APRN.KITCHEN HELP HANDYMAN [address] [address] Phone: tel: fax: [address] [address] Referral ID Status Reason Start Date Expiration Date V isits Requested Visits Authorized [id number] Closed Auto-Generate d Referral 09/03/2024 04/17/2025 1 1 [facility] Advance Directives Documents on File Type Date Recorded Patient Night Auditor Expl anation ACP-Advance Directive ACP-Power of Plastic Tool Maker Documents on File Type Date Recorded Patient Night Auditor Expl anation ACP-Advance Directive ACP-Power of Plastic Tool Maker Latest Code Status on File Code Status [...] drive you home after your procedure. Your minibus driver must be 18 years of age [...] questions, call the Pre-Admission Testing Unit at [phone]. Day of Surgery/Procedure As a patient at [facility] you can expect quality medical and nursing care that is centered on your individual needs. Our goal is to make your surgical experience as comfortableas possible . Directions to the Surgery Center [facility] is located at [address] [place] [address]. Please pull into the Emergency parking lot and stop at the cryolite recovery operator dotson. We offer free cryolite recovery operator service for all our surgery patients, if you choose not to have cryolite recovery operator parking we have additional parking across the street.You will enter the facility following the [facility] sign. Please stop at the fender mechanic desk where you will be checked in by the staff. If you have any questions please call [phone]. Transportation after your procedure. You will need a friend or family member to drive you home after your procedure. Your minibus driver must be18 years of age or [...] may shave your face or neck. ? [place] your teeth but do not swallow water. [...] or the day of surgery, please call [phone], or [phone] documented in this encounter* Instructions* Mukesh Montez, [...] 48 hours call the anesthesia department at [phone]. Will you need pain medication? The nerve [...] block please phone the Anesthesiology Department at [phone]. If the phone does not get answered please contact the hospital snow plow tractor operator at [phone] to page the contribution solicitor anesthesiologist Discharge Instructions for Bariatric Surgery You had a Laparoscopic Sleeve Gastrectomy (76126) surgery to treat obesity. Recovery from this [...] scheduled appointment, please call the office at [phone]. Call Your Doctor If Any of the [...] CLINICAL PHARMACY NOTE: MEDS TO [facility] Patient?: No Total # of Prescriptions Filled: 3 The following medications were delivered to the patient: Oxycodone-acetaminophen 5/325 mg tab Cyclobenzaprine 10 mg tab Enoxaparin 60mg /0.6 ml syr Total # of Interventions Completed: 1 Time Spent (min): 60 Additional Documentation:called block and case maker about the high co-pay on the enoxaparin [...] SHOULDER DI SCUSS SURGERY Reason for Visit [id number] Laxity of ligament Multidirectional instability of glenohumeral joint Numbness of right hand Other instability, right shoulder Chief Complaint OP SP RT SHOULDER DI SCUSS SURGERY R20.0 Reason for Visit [id number] Laxity of ligament Multidirectional instability of glenohumeral joint Numbness of right hand Other instability, right shoulder Chief Complaint OP SP RT SHOULDER DI SCUSS SURGERY R20.0 EMG RESULTS Reason for Visit [id number] Laxity of ligament Multidirectional instability of glenohumeral joint Numbness of right hand Other instability, right shoulder [id number] Laxity of ligament Multidirectional instability of glenohumeral joint Numbness of right hand Other instability, right shoulder Right carpal tunnel syndrome Chief Complaint OP SP RT SHOULDER DI SCUSS SURGERY R20.0 EMG RESULTS Shoulder pain Reason for Visit [id number] Laxity of ligament Multidirectional instability of glenohumeral joint Numbness of right hand Other instability, right shoulder [id number] Laxity of ligament Multidirectional instability of glenohumeral joint Numbness of right hand Other instability, right shoulder Right carpal tunnel syndrome Chief Complaint OP SP RT SHOULDER DI SCUSS SURGERY R20.0 EMG RESULTS Shoulder pain H & P RIGHT SHOULDER ARTHROSCOPY 12-07-23 Reason for Visit [id number] Laxity of ligament Multidirectional instability of glenohumeral joint Numbness of right hand Other instability, right shoulder [id number] Laxity of ligament Multidirectional instability of glenohumeral joint Numbness of right hand Other instability, right shoulder Right carpal tunnel syndrome [id number] Laxity of ligament Multidirectional instability of glenohumeral joint Other instability, right shoulder Right carpal tunnel syndrome Chief Complaint OP SP RT SHOULDER DI SCUSS SURGERY R20.0 EMG RESULTS Shoulder pain H & P RIGHT SHOULDER ARTHROSCOPY 12-07-23 Shoulder pain Shoulder pain Reason for Visit [id number] Laxity of ligament Multidirectional instability of glenohumeral joint Numbness of right hand Other instability, right shoulder [id number] Laxity of ligament Multidirectional instability of glenohumeral joint Numbness of right hand Other instability, right shoulder Right carpal tunnel syndrome [id number] Laxity of ligament Multidirectional instability of glenohumeral joint Other instability, right shoulder Right carpal tunnel syndrome Chief Complaint OP SP RT SHOULDER DI SCUSS SURGERY R20.0 EMG RESULTS Shoulder pain H & P RIGHT SHOULDER ARTHROSCOPY 12-07-23 Shoulder pain Shoulder pain 10-14 DAYS POST OP Reason for Visit [id number] Laxity of ligament Multidirectional instability of glenohumeral joint Numbness of right hand Other instability, right shoulder [id number] Laxity of ligament Multidirectional instability of glenohumeral joint Numbness of right hand Other instability, right shoulder Right carpal tunnel syndrome [id number] Laxity of ligament Multidirectional instability of glenohumeral joint Other instability, right shoulder Right carpal tunnel syndrome [id number] Laxity of ligament Multidirectional instability of glenohumeral joint Other instability, right shoulder Right carpal tunnel syndrome Status post arthroscopy of right shoulder Chief Complaint R20.0 EMG RESULTS Shoulder pain H & P RIGHT SHOULDER ARTHROSCOPY 12-07-23 Shoulder pain Shoulder pain 10-14 DAYS POST OP R20.0 4 WEEKS Reason for Visit [id number] Laxity of ligament Multidirectional instability of glenohumeral joint Numbness of right hand Other instability, right shoulder Right carpal tunnel syndrome [id number] Laxity of ligament Multidirectional instability of glenohumeral joint Other instability, right shoulder Right carpal tunnel syndrome [id number] Laxity of ligament Multidirectional instability of glenohumeral joint Other instability, right shoulder Right carpal tunnel syndrome Status post arthroscopy of right shoulder Status post surgery [id number] Laxity of ligament Multidirectional instability of glenohumeral [...] for Visit Admit Date 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 December 20, 2023 10:11am Laxity of ligament December 20, 2023 10:11am Multidirectional instability of glenohum eral joint December 20, 2023 10:11am Other instability, right shoulder Septem 2023 10:11am Right carpal tunnel syndrome December 192023 10:11am Status post arthroscopy of right shoulde r December 20, 2023 10:11am Status post surgery December 20, 2023 10:11am Degenerative superior labral qnqjtpjt-dg-vvwkiikje (SLAP) tear of right matthias January 17, 2024 11:58am Laxity of ligament January 17, 2024 11 :58am Multidirectional instability of glenohum eral joint January 17, 2024 11:58am Other instability, right shoulder Octobe 2023 11:58am Right carpal tunnel syndrome January 11:58am Status post arthroscopy of right shoulde r January 17, 2024 11:58am Status post surgery January 17, 2024 11 :58am Degenerative superior labral eeoxybvw-kx-lzzcdoavw (SLAP) tear of right matthias February 27, [...] for Visit Admit Date Degenerative superior labral pfrvnfjo-df-fgzswfcst (SLAP) tear of right matthias February 27, 2024 2:25pm Laxity of ligament February 27, 2024 2:25pm Multidirectional instability of glenohum eral joint February 27, 2024 2:25pm Other instability, right shoulder Novemb er 2023 2:25pm Right carpal tunnel syndrome February 262023 2:25pm Status post arthroscopy of right shoulde r February 27, 2024 2:25pm Status post surgery February 27, 2024 2:25pm Degenerative superior labral zbyabcip-ei-iaznddkgp (SLAP) tear of right matthias April 23, [...] for Visit Admit Date Degenerative superior labral kkejqqvm-bl-zyfckmipg (SLAP) tear of right matthias February 27, 2024 2:25pm Laxity of ligament February 27, 2024 2:25pm Multidirectional instability of glenohum eral joint February 27, 2024 2:25pm Other instability, right shoulder Novemb er 2023 2:25pm Right carpal tunnel syndrome February 262023 2:25pm Status post arthroscopy of right shoulde r February 27, 2024 2:25pm Status post surgery February 27, 2024 2:25pm Degenerative superior labral cnxuowwf-bm-ppxkgvodi (SLAP) tear of right matthias April 23, [...] therapy exercises and steroid injection, MRI at [facility], Dr. 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) Referral Organization [facility] [place] Referring Provider First Name Amanda Referring Provider Last Name Logan Referring Provider Specialty Nurse Destiney hall Referred Organization [facility] Referred Provider Darleen Sinclair Referred Address [address],[place], [place],[address] Referred Provider Specialty Endocrinolog y Referral Priority Routine General Notes Fore, Chelsi M 023 11:26:34 AM >Received today and waiting for office notes to be locked before sending referral Additional Source Comments Reason for Visit (unrecogniz ed section and content) Status Reason Specialty Diagnoses / Procedures Referre d By Contact Referred To Contact Diagnoses Morbid obesity (HCC) MORBID OBESITY, HYPOTHYROID Procedures [place] LAP GASTRIC BYPASS/BEN-EN-Y XI LAPAROSCOPIC ROBOTIC GASTRIC BYPASS BEN-EN-Y, LIVER BIOPSY, EGD- GI UNIT SCHEDULED. Rashard Olivera, [address] [facility] [address] [place] [address] [facility] Reason Comments Gynecologic Exam Reason Comments Infertility Specialty Diagnoses / Procedures Referred By Saud t Referred To Contact [facility] Diagnoses Female infertility, unspecified Procedures VV OFFICE/OP CONSLTJ NEW/EST PT MOD MDM 40 MINUTES Pcp, No, HORSE DOCTOR [facility] [address] [address] [place] [address] Referral ID Status Reason Start Date Expiration Date V isits Requested Visits Authorized [id number] Closed Financial Clearance Required - Self Pay Patient Cleared - True Self-Pay required payment collected Do Not Bill Insurance - SP patient Financial Clearance Not Required 12/30/2023 02/28/2024 1 1 Reason Comments 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 [address] [facility] [place] [address] Referral ID Status Reason Start Date Expiration Date V isits Requested Visits Authorized [id number] Closed Financial Clearance Required - Self Pay Patient Cleared - True Self-Pay required payment collected Do Not Bill Insurance - SP patient 02/28/2024 05/28/2024 1 1 Specialty Diagnoses / Procedures Referred By Saud Referred To Contact REPRODUCTIVE ENDOCRINOLOGY & FERTILITY Diagnoses Encounter for fertility testing Procedures OFFICE/OUTPATIENT ESTABLISHED LOW MDM [address] [facility] [address] [place] [address] [facility] [address] [place] [address] [phone] Referral ID Status Reason Start Date Expiration Date V isits Requested Visits Authorized [id number] Closed Financial Clearance Required - Self Pay [...] section and content) DATE CREATED AUTHOR 05/08/2020 [facility] DATE CREATED AUTHOR AUTHOR'S ORGANIZ ATION 03/31/2021 [facility] DATE CREATED AUTHOR AUTHOR'S ORGANIZ ATION 09/04/2021 [facility] DATE CREATED AUTHOR AUTHOR'S ORGANIZ ATION 04/19/2024 [facility] DATE CREATED AUTHOR AUTHOR'S ORGANIZ ATION 05/05/2024 [facility] DATE CREATED AUTHOR AUTHOR'S ORGANIZ ATION 09/12/2024 [facility] DATE CREATED AUTHOR AUTHOR'S ORGANIZ ATION 10/05/2024 [facility] DATE CREATED AUTHOR AUTHOR'S ORGANIZ ATION 12/07/2024 [facility] DATE CREATED AUTHOR AUTHOR'S ORGANIZ ATION 12/07/2024 [facility] DATE CREATED AUTHOR AUTHOR'S ORGANIZ ATION 12/20/2024 [facility] DATE CREATED AUTHOR AUTHOR'S ORGANIZ ATION 01/05/2025 [facility] Care Teams (unrecognized sec tion and content) Team Status: Inactive Member Role Status Dates Robin Appiah MD Primary Care Provider Active Amanda Ford APRN COMMERCIAL BAKER HELPER-C Attending Provider Act misti Team Status: Inactive Member Role Status Dates Amanda Ford APRN COMMERCIAL BAKER HELPER-C Primary Care Provider Active Jean Jett PA-C Emergency Provider Active Team Status: Inactive Member Role Status Dates Amanda Ford APRN COMMERCIAL BAKER HELPER-C Primary Care Provider Active Jack Easton DO Emergency Provider Active Team Status: Active Member Role Status Dates Amanda Ford APRN COMMERCIAL BAKER HELPER-C Primary Care Provider Active Team Status: Inactive Member Role Status Dates Amanda Ford APRN COMMERCIAL BAKER HELPER-C Primary Care Provider, Attending Provider Active Team Status: Active Member Role Status Dates Amanda Ford APRN COMMERCIAL BAKER HELPER-C Primary Care Provider Active Jean Jett PA-C Emergency Provider Active Farhad Gallego MD Admit Provider, Attending Provider A ctive Team Status: Inactive Member Role Status Dates Amanda Ford APRN COMMERCIAL BAKER HELPER-C Primary Care Provider Active Jean Jett PA-C Emergency Provider Active Farhad Gallego MD Admit Provider, Attending Provider A ctive Team Status: Inactive Member Role Status Dates Amanda Ford APRN COMMERCIAL BAKER HELPER-C Primary Care Provider Active ANDREW GrecoC Attending Provider Active Team Status: Inactive Member Role Status Dates Provider Conversion Attending Provider Active St art: May 17, 2023 End: May 17, 2023 Team Status: Inactive Member Role Status Dates Amanda Ford APRN COMMERCIAL BAKER HELPER-C Primary Care Provider, Attending Provider Active Start: June 08, 2023 End: June 08, 2023 Team Status: Active Member Role Status Dates Amanda Ford APRN COMMERCIAL BAKER HELPER-C Primary Care Provider, Attending Provider Active Start: September 15, 2023 Team Status: Inactive Member Role Status Dates Amanda Ford APRN COMMERCIAL BAKER HELPER-C Primary Care Provider Active Start: October 13, 2023 End: October 13, 2023 Romeo Santana DO Attending Provider Active St art: October 13, 2023 End: October 13, 2023 Team Status: Inactive Member Role Status Dates Amanda Ford APRN COMMERCIAL BAKER HELPER-C Primary Care Provider Active Start: October 26, 2023 End: October 26, 2023 Romeo Santana DO Attending Provider Active St art: October 26, 2023 End: October 26, 2023 Team Status: Inactive Member Role Status Dates Amanda Ford APRN COMMERCIAL BAKER HELPER-C Primary Care Provider Active Start: November 01, 2023 End: November 01, 2023 Romeo Santana DO Attending Provider Active St art: November 01, 2023 End: November 01, 2023 Team Status: Inactive Member Role Status Dates Amanda Ford APRN COMMERCIAL BAKER HELPER-C Primary Care Provider Active Start: November 28, 2023 End: November 28, 2023 Romeo Santana DO Attending Provider Active St art: November 28, 2023 End: November 28, 2023 Team Status: Inactive Member Role Status Dates Amanda Ford APRN COMMERCIAL BAKER HELPER-C Primary Care Provider Active Start: December 01, 2023 End: December 01, 2023 Romeo Santana DO Attending Provider Active St art: December 01, 2023 End: December 01, 2023 Team Status: Inactive Member Role Status Dates Amanda Ford APRN COMMERCIAL BAKER HELPER-C Primary Care Provider Active Start: December 07, 2023 End: December 07, 2023 Romeo Santana DO Attending Provider Active St art: December 07, 2023 End: December 07, 2023 Team Status: Active Member Role Status Dates Amanda Ford APRN COMMERCIAL BAKER HELPER-C Primary Care Provider Active Start: November Romeo Santana DO Attending Provider, Other Provider Active Start: December 07, 2023 Team Status: Inactive Member Role Status Dates Amanda Ford APRN COMMERCIAL BAKER HELPER-C Primary Care Provider Active Start: December 192023 End: December 20, 2023 Romeo Santana DO Attending Provider Active St art: December 20, 2023 End: December 20, 2023 Team Status: Active Member Role Status Dates Amanda Ford APRN COMMERCIAL BAKER HELPER-C Primary Care Provider Active Start: December 182023 Romeo Santana DO Other Provider Active Start: January 10, 2024 Daniel Hampton MD Attending Provider Active Start: January 10, 2024 Team Status: Inactive Member Role Status Dates Amanda Ford APRN COMMERCIAL BAKER HELPER-C Primary Care Provider Active Start: January 17, 2024 End: January 17, 2024 Romeo Santana DO Attending Provider Active St art: January 17, 2024 End: January 17, 2024 Supervisor Engine Repair Relationship Specialty Start Date End Date Amanda Ford NP [address] [place] [address] PCP - [facility] 01/17/23 Supervisor Engine Repair Relationship Specialty Start Date End Date Amanda Ford NP [address] [place] [address] PCP - [facility] Medicine 01/17/23 Team Status: Inactive Member Role Status Dates Amanda Ford APRN COMMERCIAL BAKER HELPER-C Primary Care Provider Active Start: February 262023 End: February 27, 2024 Romeo Santana DO Attending Provider Active St art: February 27, 2024 End: February 27, 2024 Supervisor Engine Repair Relationship Specialty Start Date End Date Amanda Ford NP PCP - [facility] Medicine 01/17/23 Team Status: Active Member Role Status Dates Amanda Ford APRN COMMERCIAL BAKER HELPER-C Primary Care Provider Active Start: February Les Martienz DO Attending Provider Active Start : February 20, 2024 Team Status: Inactive Member Role Status Dates Amanda Ford APRN COMMERCIAL BAKER HELPER-C Primary Care Provider Active Start: April 23, 2024 End: April 23, 2024 Romeo Santana DO Attending Provider Active St art: April 23, 2024 End: April 23, 2024 Team Status: Inactive Member Role Status Dates Amanda Ford APRN COMMERCIAL BAKER HELPER-C Primary Care Provider, Attending Provider Active Start: April 26, 2024 End: April 26, 2024 Supervisor Engine Repair Relationship Specialty Start Date End Date Amanda Ford NP [address] [place] [address], [place] [address] PCP - General Family Medicine 01/17/23 Supervisor Engine Repair Relationship Specialty Start Date End Date Amanda Ford NP [address] [facility] [place] [address] PCP - General Family Medicine 01/17/23 Supervisor Engine Repair Relationship Specialty Start Date End Date Amanda Ford NP [address] [facility] [place] [address] PCP - General Family Medicine 01/17/23 Supervisor Engine Repair Relationship Specialty Start Date End Date Amanda Ford NP [address] [facility] [place] [address] PCP - General Family Medicine 01/17/23 Team Status: Inactive Member Role Status Dates Amanda Ford APRN COMMERCIAL BAKER HELPER-C Primary Care Provider Active Start: October 18, 2024 End: October 18, 2024 Kassidy Arriaza DO Emergency Provider Active Start: October 18, 2024 End: October 18, 2024 Supervisor Engine Repair Relationship Specialty Start Date End Date Amanda Ford NP [address] [facility] [place] [address] PCP - General Family Medicine 01/17/23 Supervisor Engine Repair Relationship Specialty Start Date End Date No Pcp, [place] [address] PCP - General Family Medicine 05/20/20 Supervisor Engine Repair Relationship Specialty Start Date End Date No Pcp, [place] [address] PCP - General Family Medicine 05/20/20 Supervisor Engine Repair Relationship Specialty Start Date End Date Amanda Ford NP [address] [facility] [place] [address] PCP - General Family Medicine 01/17/23 Supervisor Engine Repair Relationship Specialty Start Date End Date Amanda Ford NP [address] [place] [address] PCP - General Family Medicine 01/17/23 Supervisor Engine Repair Relationship Specialty Start Date End Date Amanda Ford NP [facility] [place] [address] PCP - General Family Medicine 01/17/23 Team Status: Active Member Role Status Dates Amanda Ford APRN COMMERCIAL BAKER HELPER-C Primary Care Provider Active Start: November 17, 2024 Chris Dickerson DO Attending Provider Active S tart: November 17, 2024 Team Status: Active Member Role Status Dates Amanda Ford APRN COMMERCIAL BAKER HELPER-C Primary Care Provider Active Start: November 20, 2024 Les Martinez DO Attending Provider Active Start : November 20, 2024 Team Status: Active Member Role Status Dates Amanda Ford APRN COMMERCIAL BAKER HELPER-C Primary Care Provider Active Start: November 30, [...] Member Role Status Dates Amanda Ford APRN COMMERCIAL BAKER HELPER-C Primary Care Provider Active Start: December 02, 2024 End: December 03, 2024 Eduardo Cruz DO Attending Provider Active Sta rt: December 02, 2024 End: December 03, 2024 Supervisor Engine Repair Relationship Specialty Start Date End Date No Pcp, [place] [address] PCP - General Family Medicine 05/20/20 Supervisor Engine Repair Relationship Specialty Start Date End Date No Pcp, [place] [address] PCP - General Family Medicine 05/20/20 Supervisor Engine Repair Relationship Specialty Start Date End Date Amanda Ford NP [address] [place] [address] [address] [place] [id number] PCP - General Family Medicine 01/17/23 Supervisor Engine Repair Relationship Specialty Start Date End Date No Pcp, [place] [address] PCP - General Family Medicine 05/20/20 Supervisor Engine Repair Relationship Specialty Start Date End Date No Pcp, [place] [address] PCP - General Family Medicine 05/20/20 Goals [...] or prosecute any alcohol or drug abuse patient.[facility] the event this information is protected by the Federal Confidentiality of Alcohol and Drug Abuse Patient Records regulations: The Federal rules restrict any use of the information to criminally investigate or prosecute any alcohol or drug abuse patient.[facility] CampusIn the event this information is protected by the Federal Confidentiality of Alcohol and Drug Abuse Patient Records regulations: The Federal rules restrict any use of the information to criminally investigate or prosecute any alcohol or drug abuse patient.[facility] CampusIn the event this information is protected by the Federal Confidentiality of Alcohol and Drug Abuse Patient Records regulations: The Federal rules restrict any use of the information to criminally investigate or prosecute any alcohol or drug abuse patient.[facility] CampusIn the event this information is protected by the Federal Confidentiality of Alcohol and Drug Abuse Patient Records regulations: The Federal rules restrict any use of the information to criminally investigate or prosecute any alcohol or drug abuse patient.[facility] CampusIn the event this information is protected by the Federal Confidentiality of Alcohol and Drug Abuse Patient Records regulations: The Federal rules restrict any use of the information to criminally investigate or prosecute any alcohol or drug abuse patient.[facility] CampusIn the event this information is protected by the Federal Confidentiality of Alcohol and Drug Abuse Patient Records regulations: The Federal rules restrict any use of the information to criminally investigate or prosecute any alcohol or drug abuse patient.[facility] CampusIn the event this information is protected by the Federal Confidentiality of Alcohol and Drug Abuse Patient Records regulations: The Federal rules restrict any use of the information to criminally investigate or prosecute any alcohol or drug abuse patient.[facility] CampusIn the event this information is protected by the Federal Confidentiality of Alcohol and Drug Abuse Patient Records regulations: The Federal rules restrict any use of the information to criminally investigate or prosecute any alcohol or drug abuse patient.[facility] CampusIn the event this information is protected by the Federal Confidentiality of Alcohol and Drug Abuse Patient Records regulations: The Federal rules restrict any use of the information to criminally investigate or prosecute any alcohol or drug abuse patient.[facility] CampusIn the event this information is protected by the Federal Confidentiality of Alcohol and Drug Abuse Patient Records regulations: The Federal rules restrict any use of the information to criminally investigate or prosecute any alcohol or drug abuse patient.[facility] CampusIn the event this information is protected by the Federal Confidentiality of Alcohol and Drug Abuse Patient Records regulations: The Federal rules restrict any use of the information to criminally investigate or prosecute any alcohol or drug abuse patient.[facility] CampusIn the event this information is protected by the Federal Confidentiality of Alcohol and Drug Abuse Patient Records regulations: The Federal rules restrict any use of the information to criminally investigate or prosecute any alcohol or drug abuse patient.[facility] CampusIn the event this information is protected by the Federal Confidentiality of Alcohol and Drug Abuse Patient Records regulations: The Federal rules restrict any use of the information to criminally investigate or prosecute any alcohol or drug abuse patient.[facility] CampusIn the event this information is protected by the Federal Confidentiality of Alcohol and Drug Abuse Patient Records regulations: The Federal rules restrict any use of the information to criminally investigate or prosecute any alcohol or drug abuse patient.[facility] CampusIn the event this information is protected by the Federal Confidentiality of Alcohol and Drug Abuse Patient Records regulations: The Federal rules restrict any use of the information to criminally investigate or prosecute any alcohol or drug abuse patient.[facility] CampusIn the event this information is protected by the Federal Confidentiality of Alcohol and Drug Abuse Patient Records regulations: The Federal rules restrict any use of the information to criminally investigate or prosecute any alcohol or drug abuse patient.[facility] CampusIn the event this information is protected by the Federal Confidentiality of Alcohol and Drug Abuse Patient Records regulations: The Federal rules restrict any use of the information to criminally investigate or prosecute any alcohol or drug abuse patient.[facility] CampusIn the event this information is protected by the Federal Confidentiality of Alcohol and Drug Abuse Patient Records regulations: The Federal rules restrict any use of the information to criminally investigate or prosecute any alcohol or drug abuse patient.[facility] CampusIn the event this information is protected by the Federal Confidentiality of Alcohol and Drug Abuse Patient Records regulations: The Federal rules restrict any use of the information to criminally investigate or prosecute any alcohol or drug abuse patient.[facility] CampusIn the event this information is protected by the Federal Confidentiality of Alcohol and Drug Abuse Patient Records regulations: The Federal rules restrict any use of the information to criminally investigate or prosecute any alcohol or drug abuse patient.[facility] CampusIn the event this information is protected by the Federal Confidentiality of Alcohol and Drug Abuse Patient Records regulations: The Federal rules restrict any use of the information to criminally investigate or prosecute any alcohol or drug abuse patient.[facility] CampusIn the event this information is protected by the Federal Confidentiality of Alcohol and Drug Abuse Patient Records regulations: The Federal rules restrict any use of the information to criminally investigate or prosecute any alcohol or drug abuse patient.[facility] CampusIn the event this information is protected by the Federal Confidentiality of Alcohol and Drug Abuse Patient Records regulations: The Federal rules restrict any use of the information to criminally investigate or prosecute any alcohol or drug abuse patient.[facility] CampusIn the event this information is protected by the Federal Confidentiality of Alcohol and Drug Abuse Patient Records regulations: The Federal rules restrict any use of the information to criminally investigate or prosecute any alcohol or drug abuse patient.[facility] CampusIn the event this information is protected by the Federal Confidentiality of Alcohol and Drug Abuse Patient Records regulations: The Federal rules restrict any use of the information to criminally investigate or prosecute any alcohol or drug abuse patient.[facility] CampusIn the event this information is protected by the Federal Confidentiality of Alcohol and Drug Abuse Patient Records regulations: The Federal rules restrict any use of the information to criminally investigate or prosecute any alcohol or drug abuse patient.[facility] FOR RECORDS PERTAINING TO PATIENTS WHO ARE [...] BE BASED ON THE PRIMARY CLINICAL RECORDS. [facility] [employer] [facility]. provides no warranty or guarantee of the accuracy or completeness of information in this document.
--- OUTSIDE RECORDS SUMMARY | 2025-01-14 12:05 | XMS_ITS | Clinical Summary ---
Author Organization [facility] Address [address] [place] [address] Care Team Providers Care Senior Mechanical Project Manager Name Role Phone Unavailable Primary Care Provider [...] is lower risk 7 02/28/2024 Data from: https://www.neighborhoodatlas.medicine.[email or web address].edu/. Last address used for calculation [address] [...] (Ag/Ab) Nonreactive Nonreactive 04/03/2024 12:27 PM EST [facility] HIV-1/2 AB (Confirmatory) 04/03/2024 12:27 PM EST [facility] Comment:Test not indicated. HIV Interpretation 04/03/2024 12:27 PM EST [facility] Comment: No evidence of HIV-1 or HIV-2 infection. Should recent infection be suspected, repeat testing may be considered 2-3 weeks after this draw. Benzie Rev. Code 3701.243(E): This information has been [...] EST 04/02/2024 3:22 PM EST Shelly Hernandez STATUE CARVER.COMPUTER GRAPHIC ARTIST LABORATORY Final Result Performing Organization Address City/[facility]/ZIP Co de Phone Number [facility] [address] * HEPATITIS C ANTIBODY IA WITH CONFIRMATION (04/02/2024 3:21 PM EST) Hep C Antibody IA Negative Negative 04/03/2024 11:20 AM EST [facility] Comment:The result suggests no evidence of active infection with Hepatitis C virus. Should recent infection be suspected, repeat testing may be considered 4-6 weeks after this draw. Blood BLOOD SPECIMEN / Unknown Venipuncture / Unknown 04/02/2024 3:21 PM EST 04/02/2024 3:22 PM EST Shelly Hernandez APRN.COMPUTER GRAPHIC ARTIST LABORATORY Final Result Performing Organization Address City/[facility]/ZIP Co de Phone Number [facility] [address] from Last 3 Months or Most Recently Relevant to Health Maintenance Insurance [employer] [place]
--- OUTSIDE RECORDS SUMMARY | 2025-01-14 12:05 | XMS_ITS | Encounter Summary ---
Author Organization [facility] Address [address] [place] [address] Care Team Providers Care Crushing Mill Operator Name Role Phone Amanda Ford LICENSING AND REGISTRATION DIRECTOR Primary Care Provider Encounter Details Date Type Department Care Team (Late st Contact Info) Description 10/22/2024 Abstract [facility] [address] [place] [address] Kerrie Babcock MA Social History Tobacco [...] EDT Routine [facility] [address] [place] [address] Mima Duenas, TY [address] [place] [address] 02/20/2025 1:00 PM EST Office Visit [facility] [address] [place] [phone] Les Martinez DO [address] [place] [address] 08/21/2025 9:30 AM EDT Office Visit [facility] [place] [facility] [address] [place] [address] Darleen Sinclair MD [address] [place] [address] documented as of this encounter Goals Goal Patient Goal Type Associated Problems Recent Progress Patient-Stated? Author Reminders Care Plan OB Reminders No Open Scheduling, Background documented as of this encounter Visit Diagnoses Not on filedocumented in this encounter Additional Health Concerns Active Problems Noted Date Diagnosed Date OB Reminders 10/22/2024 documented as of this encounter Care Teams Crushing Mill Operator Relationship Specialty Start Date End Date Amanda Ford NP [address] [facility] [address] PCP - General Family Medicine 01/17/23 documented as of this encounter
--- OUTSIDE RECORDS SUMMARY | 2025-01-14 12:05 | XMS_ITS | Encounter Summary ---
Author Organization [facility] Address [address] [place] [address] Care Team Providers Care Paint Tester Name Role Phone Logan Amanda Nikole IMPROVEMENT LEAD Primary Care Provider Encounter Details Date Type Department Care Team (Late Contact Info) Description 01/07/2025 Abstract [facility] [address] [place] [address] Les Martinez DO [address] [place], [place] [address] Social History Tobacco Use Types Packs/Day Years [...] 11:20 AM EDT Routine [facility] [address] [place] [phone] Mima Duenas NP [address] [place] [address] 02/20/2025 1:00 PM EST Office Visit [facility] [address] [facility] [place] [address] Les Martinez DO [address] [place], [place] [id number] 08/21/2025 9:30 AM EDT Office Visit [facility] [place] [facility] [address] [place] [phone] Darleen Sinclair MD [address] [place] [address] documented as of this encounter Goals Goal Patient Goal Type Associated Problems Recent Progress Patient-Stated? Author Reminders Care Plan OB Reminders No Open Scheduling, Background documented as of this encounter Visit Diagnoses Not on filedocumented in this encounter Additional Health Concerns Active Problems Noted Date Diagnosed Date OB Reminders 10/22/2024 documented as of this encounter Care Teams Paint Tester Relationship Specialty Start Date End Date Amanda Ford NP [address] [facility] [address] [place], [place] [phone] PCP - General Family Medicine 01/17/23 documented as of this encounter
--- OUTSIDE RECORDS SUMMARY | 2025-01-14 12:05 | XMS_ITS | Encounter Summary ---
Author Organization [facility] Address [address] [place] [address] Care Team Providers Care Digital Solution Architect Name Role Phone Amanda Ford LOOKBACK COORDINATOR Primary Care Provider Encounter Details Date Type Department Care Team (Late st Contact Info) Description 10/22/2024 Abstract [facility] [address] [place] [address] Kerrie Babcock MA Social History Tobacco [...] EDT Routine [facility] [address] [place] [address] Mima Duenas, TY [address] [place] [address] 02/20/2025 1:00 PM EST Office Visit [facility] [address] [place] [phone] Les Martinez DO [address] [place] [address] 08/21/2025 9:30 AM EDT Office Visit [facility] [place] [facility] [address] [place] [address] Darleen Sinclair MD [address] [place] [address] documented as of this encounter Goals Goal Patient Goal Type Associated Problems Recent Progress Patient-Stated? Author Reminders Care Plan OB Reminders No Open Scheduling, Background documented as of this encounter Visit Diagnoses Not on filedocumented in this encounter Additional Health Concerns Active Problems Noted Date Diagnosed Date OB Reminders 10/22/2024 documented as of this encounter Care Teams Digital Solution Architect Relationship Specialty Start Date End Date Amanda Ford NP [address] [facility] [place] [address] PCP - General Family Medicine 01/17/23 documented as of this encounter
--- OUTSIDE RECORDS SUMMARY | 2025-01-14 12:05 | XMS_ITS | Clinical Summary ---
Author Organization [facility] Address [address] [facility] [address], [address] [place] [address] Care Team Providers Care Associate Professor Of Forestry Name Role Phone Robin Marquez MD Primary Care Provider [phone] Allergies No known active allergies Medications levothyroxine [...] 4:42 PM 05/08/2020 3:13 PM Care Teams Associate Professor Of Forestry Relationship Specialty Start Date End Date Robin Marquez MD [address] [place] [id number] PCP - General Family Medicine 10/10/18
--- OUTSIDE RECORDS SUMMARY | 2025-01-14 12:05 | XMS_ITS | Encounter Summary ---
Author Organization [facility] Address [address] [place] [address] Care Team Providers Care Territory Account Executive Name Role Phone Amanda Ford [facility] Primary Care Provider Encounter Details Date Type Department Care Team (Late st Contact Info) Description 01/08/2025 Telephone [facility] [address] [place] [address] Jojo Ames PA [address] [place], [facility] Social History Tobacco Use Types Packs/Day [...] [address] [facility] [place] [address] Mima Duenas, TY [address] [place] [address] 02/20/2025 1:00 PM EST Office Visit [facility] [address] [facility] [place] [phone] Les Martinez DO [address] [place] [address] 08/21/2025 9:30 AM EDT Office Visit [facility] [address] [place] [address] Darleen Sinclair MD [address] [place] [address] documented as of this encounter Goals Goal Patient Goal Type Associated Problems Recent Progress Patient-Stated? Author Reminders Care Plan OB Reminders No Open Scheduling, Background documented as of this encounter Visit Diagnoses Not on filedocumented in this encounter Additional Health Concerns Active Problems Noted Date Diagnosed Date OB Reminders 10/22/2024 documented as of this encounter Care Teams Territory Account Executive Relationship Specialty Start Date End Date Amanda Ford NP [address] [facility] [place] [address] PCP - General Family Medicine 01/17/23 documented as of this encounter
--- OUTSIDE RECORDS SUMMARY | 2025-01-14 12:05 | XMS_ITS | Encounter Summary ---
Author Organization [facility] Address [address], [address] [place] [address] Care Team Providers Care Product Finisher Name Role Phone Robin Marquez MD Primary Care Provider [phone] Reason for Visit * Reason Comments Medication Refill Encounter Details Date Type Department Care Team (Late st Contact Info) Description 03/08/2019 Refill [facility] [address] [place] [address] [place] [phone] Christina Arreguin, VOICE PROFESSOR - RETAINING ROOM CUTTER Medication Refill Social History Tobacco Use Types [...] documented as of this encounter Care Teams Product Finisher Relationship Specialty Start Date End Date Robin Marquez MD [address] [place] [address] PCP - General Family Medicine 10/10/18 documented as of this encounter
--- OUTSIDE RECORDS SUMMARY | 2025-01-14 12:05 | XMS_ITS | Encounter Summary ---
Author Organization [facility] Address [address] [place] [address] Care Team Providers Care Aircraft Launch And Recovery Technician Name Role Phone Unavailable Primary Care Provider Unavailabl e Source Comments In the event this information is protected by the Federal Confidentiality of Alcohol and Drug AbusePatient Records regulations: The Federal rules restrict any use of the information to criminally investigate or prosecute any alcohol or drug abuse patient.[facility] Encounter Details Date Type Department Care Team (Late st Contact Info) Description 09/03/2024 Patient Msg Reproductive Endocrinology Infertility [address] [facility] [place] [address] Manisha Powell APRN.OIL LABORATORY ANALYST [address] [place] [address] Congratulations!!! Social History Tobacco Use Types Packs/Day Years Used Date Smoking Tobacco: Never Assessed Area Deprivation Index Answer Date Claudio rded National Score (1-100), lower number is lower ri sk 82 02/28/2024 State Score (1-10), lower number is lower risk 7 02/28/2024 Data from: https://www.neighborhoodatlas.medicine.[facility].edu/. Last address used for calculation [...]
--- OUTSIDE RECORDS SUMMARY | 2025-01-14 12:05 | XMS_ITS | Encounter Summary ---
Author Organization [facility] Address [address] [place] [address] Care Team Providers Care Lithoplate Maker Name Role Phone Logan Amanda Nikole SOFTWARE SALES Primary Care Provider Encounter Details Date Type Department Care Team (Late Contact Info) Description 10/17/2024 Abstract [facility] [address] [place] [address] Les Martinez DO [address] [facility] [place], [place] [address] Social History Tobacco Use Types Packs/Day Years [...] 11:20 AM EDT Routine [facility] [address] [place] [phone] Mima Duenas NP [address] [facility] [place] [address] 02/20/2025 1:00 PM EST Office Visit [facility] [address] [facility] [place] [address] Les Martinez DO [address] [facility] [place], [place] [phone] 08/21/2025 9:30 AM EDT Office Visit [facility] [place] [facility] [address] [place] [phone] Darleen Sinclair MD [address] [place] [address] documented as of this encounter Visit Diagnoses Not on filedocumented in this encounter Care Teams Lithoplate Maker Relationship Specialty Start Date End Date Amanda Ford NP [address] [facility] [facility] [address] [place] [phone] PCP - General Family Medicine 01/17/23 documented as of this encounter
--- OUTSIDE RECORDS SUMMARY | 2025-01-14 12:05 | XMS_ITS | Encounter Summary ---
Author Organization [facility] Address [address] [place] [address] Care Team Providers Care Finance Director Name Role Phone Amanda Ford UNDERGROUND HEAVY EQUIPMENT OPERATOR Primary Care Provider Encounter Details Date Type Department Care Team (Late st Contact Info) Description 10/22/2024 Abstract [facility] [address] [place] [address] Kerrie Babcock MA [...] [place] [address] Mima Duenas, TY [address] [place] [phone] 02/20/2025 1:00 PM EST Office Visit [facility] [address] [place] [phone] Les Martinez DO [address] [place] [address] 08/21/2025 9:30 AM EDT Office Visit [facility] [address] [place] [address] Darleen Sinclair MD [address], [address] [...] documented as of this encounter Care Teams Finance Director Relationship Specialty Start Date End Date Amanda Ford NP [address] [facility] [place] [address] PCP - General Family Medicine 01/17/23 documented as of this encounter
--- OUTSIDE RECORDS SUMMARY | 2025-01-14 12:05 | XMS_ITS | Encounter Summary ---
Author Organization [facility] Address [address] [facility] [place] [address] Care Team Providers Care Cooking Instructor Name Role Phone Robin Marquez MD Primary Care Provider Reason for Visit * Reason Comments Medication Refill Encounter Details Date Type Department Care Team (Late st Contact Info) Description 03/22/2019 Refill [facility] [address] [place] [address] [place] [phone] Christina Arreguin, HOISTING ENGINE OPERATOR - QUALITY ASSURANCE ANALYST Medication Refill Social History Tobacco Use Types [...] documented as of this encounter Care Teams Cooking Instructor Relationship Specialty Start Date End Date Robin Marquez MD [address] [place] [address] PCP - General Family Medicine 10/10/18 documented as of this encounter
--- OUTSIDE RECORDS SUMMARY | 2025-01-14 12:05 | XMS_ITS | Encounter Summary ---
Author Organization [facility] Address [address] [place] [address] Care Team Providers Care Collection Technician Name Role Phone Mariam Fordfer Nikole BELLOWS FILLER Primary Care Provider Encounter Details Date Type Department Care Team (Late Contact Info) Description 12/05/2024 External Result Encounter [facility] [address] [place] [phone] Basim Martinez DO [address] [place], [place] [phone] Social History Tobacco Use Types Packs/Day Years [...] 11:20 AM EDT Routine [facility] [address] [place] [phone] Mima Duenas, TY [address] [facility] [place] [address] 02/20/2025 1:00 PM EST Office Visit [facility] [place] [facility] [address] [place] [address] Basim Martinez, [address] [facility] [address] [place], [place] [phone] 08/21/2025 9:30 AM EDT Office Visit [facility] [address] [place] [phone] Darleen Sinclair MD [address] [place] [address] documented as of this encounter [...] PM EDT THIS EXAM WAS PERFORMED AT [facility] NAME: MARIA EUGENIA HINDS : 1995 SEX: F Accession Number: [id number] ORDERING PHYSICIAN: ENRIKE LINDQUIST REFERRING PHYSICIAN: BASIM MARTINEZ Coding ----- --------- Procedures [id number]: Ultrasound, uterus, real time with image documentation, and maternal evaluation plus detailed anatomic examination, transabdominal approach;single or first gestation 24380: Transvaginal Ultrasound (OB) Indication ----- --------- Screening for Anatomic Survey, Screening for cervical length, resulting from assisted reproductive technology- IUI, History of Gastric sleeve, Obesity in . History ----- --------- OB History 1. Para 0 [id number] Current ----- --------- Cell free DNA low [...] EFW (oz) 14 oz EFW by: Hadlock ([id number]) Extended Tibia 27.0 mm 19w 5d 43% [facility] 8.2 mm CM 4.2 mm 24% Nicolaides [...] Thorax RVOT view. LVOT view. 3-vessel view. 8-mavolc-dafrfxn view. Bicaval view. Ductal arch view. Great [...] 5.2 cm. Recommendations ----- --------- Please see [facility] documentation from today. The patient is scheduled in four to six week(s) to complete anatomic survey. Subsequent follow up or other follow up as clinically determined by primary OB provider unless otherwise specified by [facility]. Results forwarded to ordering provider so they can follow up with the patient as necessary. The copy-to physician of this order is BASIM Herring The ordering physician of this order is ENRIKE Alfaro Procedure Note Radiology, Radiologist, - 12/05/2024 THIS EXAM WAS PERFORMED AT [facility] NAME: MARIA EUGENIA HINDS : 1995 SEX: F Accession Number: [id number] ORDERING PHYSICIAN: ENRIKE LINDQUIST REFERRING PHYSICIAN: BASIM MARTINEZ Coding ----- --------- Procedures 50656: Ultrasound, uterus, real time with imagedocumentation, and maternal evaluation plus detailed anatomic examination, transabdominalapproach;single or first gestation 43780: Transvaginal Ultrasound (OB) Indication ----- --------- Screening for Anatomic Survey, Screening for cervical length, Pregnancyresulting from assisted reproductive technology- IUI, History of Gastric sleeve, Obesity in . History ----- --------- OB History 1. Para 0 [id number] Current ----- --------- Cell free DNA low [...] EFW (oz) 14 oz EFW by: Hadlock ([id number]) Extended Tibia 27.0 mm 19w 5d 43% [facility] 8.2 mm CM 4.2 mm 24% Nicolaides [...] Thorax RVOT view. LVOT view. 3-vessel view. 9-kyjaby-idkdtus view.Bicaval view. Ductal arch view. Great vessels. [...] documented as of this encounter Care Teams Collection Technician Relationship Specialty Start Date End Date Amanda Ford NP [facility] [place] [address] PCP - General Family Medicine 01/17/23 documented as of this encounter
--- OUTSIDE RECORDS SUMMARY | 2025-01-14 12:06 | XMS_ITS | Clinical Summary ---
Author Organization [facility] Address [address] [place] [address] Care Team Providers Care Body Die Maker Name Role Phone Amanda Ford HOTEL SERVICES SALES REPRESENTATIVE Primary Care Provider Allergies Active Allergy Reactions [...] Date Type Department Care Team Description 01/11/2025 Clinisync Result Encounter [facility] External Department Unsolicited Basim Martinez, DO 01/11/2025 Telephone [facility] [address] [place] [address] Basim Martinez, DO 01/10/2025 Telephone [facility] [address] [place] [address] Jojo Ames PA 01/09/2025 Clinisync Result Encounter [facility] External Department Unsolicited Jojo Ames PA 01/08/2025 Telephone [facility] [address] [place] [address] Jojo Ames PA 01/07/2025 Abstract [facility] [address] [place] [address] Basim Martinez, DO 12/19/2024 10:00 AM EDT Routine [facility] [address] [place] [address] Jojo Ames PA 22 weeks gestation of ([facility]); Second trimester ([facility]); Thyroid disease ; H/O gastric sleeve; H/O iron deficiency anemia; Diabetes mellitus screening 12/19/2024 Bamboo flowsheet [facility] [address] [place] [address] Jojo Ames PA 12/15/2024 Clinisync Result Encounter [facility] External Department Unsolicited Basim Martinez, DO 12/12/2024 Travel 12/05/2024 External Result Encounter [facility] [address] [place] [address] Basim Martinez, DO 12/04/2024 8:30 AM EDT Ancillary Procedure [facility] [address] [place] [address] Screening, , for anatomic survey ([facility]) 12/02/2024 External Result Encounter [facility] External Department Unsolicited Eduardo Cruz, DO 11/30/2024 Telephone [facility] [address] [place] [address] FarhatLisa urenaYANDEL 11/20/2024 8:40 AM EDT Routine [facility]AN[facility] [address] [place] [address] Basim Martinez, Well woman exam with routine gynecological exam; Exposure to STD; Second trimester ([facility]); 18 weeks gestation of ([facility]); Need for maternal serum alpha-protein (MSAFP) screening ([facility]); Screening, , for anatomic survey ([facility]); Thyroid disease 11/20/2024 External Result Encounter [facility] External Department Unsolicited Basim Martinez, 11/20/2024 Clinisync Result Encounter [facility] External Department Unsolicited Basim Martinez, DO 11/20/2024 Bamboo flowsheet [facility] [address] [place] [address] Basim Martinez, 11/05/2024 Refill [facility] [address] [facility] [place] [address] Basim Martinez, Other iron deficiency anemia 10/22/2024 11:20 AM EDT Routine [facility] [address] [place] [address] Basim Martinez, 13 weeks gestation of ([facility]); Second trimester ([facility]); Thyroid disease ; H/O gastric sleeve; H/O iron deficiency anemia; resulting from in vitro fertilization in first trimester ([facility]) 10/22/2024 Abstract [facility] [address] [place] [address] Kerrie Babcock MA 10/22/2024 Abstract [facility] [address] [facility] [place] [address] Kerrie Babcock ND 10/22/2024 Abstract [facility] [address] [facility] [place] [address] Kerrie Babcock ND 10/21/2024 Travel 10/18/2024 Telephone [facility] [address] [facility] [place] [address] Basim Martinez DO 10/17/2024 Abstract [facility] [address] [facility] [place] [address] Basim Martinez, from Last 3 Months Immunizations Immunization Administration [...] 11:20 AM EDT Routine [facility] [address] [facility] [place] [address] Mima Duenas, TY [address] [facility] [place] [place] [address] 02/20/2025 1:00 PM EST Office Visit GUDELIA HERNANDEZ [address] [facility] [place] [address] Basim Martinez DO [address] [facility] [place] [address] 08/21/2025 9:30 AM EDT Office Visit GUDELIA [facility] [address] [place] [address] Darleen Sinclair MD [address], [address] [place] [address] Health Maintenance Due Date Last Done Comments Influenza Vaccine (#1) 2024 Goals Goal Patient Goal Type Associated Problems Recent Progress Patient-Stated? Author Reminders Care Plan OB Reminders No Open Scheduling, Background Procedures Procedure Name Priority Date/Time Associated Diagnosis Comments ALL THYROID STIM HORMONE Routine 01/11/2025 2:48 PM EDT GLUCOSE 1 HOUR Routine 01/09/2025 12:00 PM EDT ALL CBC WITH AUTO DIFF Routine 01/09/2025 12:00 PM EDT POCT URINALYSIS DIPSTICK Routine 12/19/2024 10:11 AM EDT 22 weeks gestation of ([facility]) Second trimester ([facility]) [facility] URINE MICROSCOPIC ONLY Routine 12/15/2024 11:24 PM EDT [facility] UA (CLEAN/CATCH) UTILITIES EQUIPMENT REPAIRER/MICRO IF IND. Routine 12/15/2024 11:24 PM EDT US OB 14+ WEEKS ANATOMY SCAN 12/05/2024 4:12 PM EDT US OB 14+ WEEKS ANATOMY SCAN Routine 12/04/2024 9:26 AM EDT Screening, , for anatomic survey ([facility]) URINALYSIS REFLEX STAT 12/02/2024 11: 40 PM EDT RECURRENT VAGINITIS (HTRX) Routine 11/20/2024 10:51 AM EDT AFP, SERUM, OPEN SPINA BIFIDA Routine 11/20/2024 10:37 AM EDT ALL THYROID STIM HORMONE Routine 11/20/2024 10:37 AM EDT POCT URINALYSIS DIPSTICK Routine 11/20/2024 9:12 AM EDT Second trimester ([facility]) POCT URINALYSIS DIPSTICK Routine 10/22/2024 11:41 AM EDT 13 weeks gestation of ([facility]) Second trimester ([facility]) from Last 3 Months Results * ALL THYROID STIM HORMONE (01/11/2025 2:48 PM EDT) Only the most recent of2 resultswithin the time period is included. THYROID STIMULATING HORMONE 2.449 0.358 - 3.740 uIU/mL [facility] 01/11/2025 2:48 PM EDT 01/11/2025 2:51 PM EDT Narrative [facility] - 01/11/2025 3:35 PM EDT us Basim Juan DO [facility] Final Result [facility] * GLUCOSE 1 HOUR (01/09/2025 12:00 PM EDT) GLUCOSE 1 HOUR 118 <130 mg/dL [facility] 01/09/2025 12:0 0 PM EDT 01/09/2025 12:02 PM EDT Narrative [facility]IN[facility]YMA - 01/09/2025 12:55 PM EDT us Jojo OGDEN LAB BLOOD ORDERABLES Final Resul t Performing Organization Address City/[facility]/ZIP Co de Phone Number [facility] * (ABNORMAL) ALL CBC WITH AUTO DIFF (01/09/2025 12:00 PM EDT) [facility] WBC 11.8(H) 4.0 - 11.0 10 3/uL [facility] TBH RBC 4.06(L) 4.20 - 5.40 10 6/uL TBH TBH HGB 12.0 12.0 - 16.0 g/dL TB TB HCT 35.6(L) 36.0 - 48.0 % TBH [...] PM EDT Jojo OGDEN [facility] Final Result [facility] * POCT urinalysis dipstick manually resulted (12/19/2024 10:11 AM EDT) Only the most recent of3 resultswithin the time period is included. Color, UA Yellow Clarity, UA Clear Glucose, UA Negative Negative - 1999(110) ++++ mg/dL Bilirubin, UA Negative Negative - (70) +++ mg/dL Ketones, UA Negative Negative - [...] DO CLINISY[facility] Final Result Performing Organization Address [facility] Co de Phone Number [facility] * (ABNORMAL) TBH UA (CLEAN/CATCH) UTILITIES EQUIPMENT REPAIRER/MICRO IF IND. (12/15/2024 11:24 PM EDT) COLOR [...] CLINISYNC Final Result Performing Organization Address City/[facility] Co de Phone Number [facility] * US OB 14+ weeks anatomy scan (12/05/2024 4:12 PM EDT) Only the most recent of2 resultswithin the time period is included. Anatomical Region Laterality Modality Body Ultrasound 12/05/2024 4:12 PM EDT Narrative 12/05/2024 4:11 PM EDT THIS EXAM WAS PERFORMED AT [facility] NAME: MARIA EUGENIA HINDS : 1995 SEX: F Accession Number: [id number] ORDERING PHYSICIAN: ENRIKE LINDQUIST REFERRING PHYSICIAN: BASIM MARTINEZ Coding ----- --------- Procedures 10219: Ultrasound, uterus, real time with image documentation, and maternal evaluation plus detailed anatomic examination, transabdominal approach;single or first gestation 64550: Transvaginal Ultrasound (OB) Indication ----- --------- Screening for Anatomic Survey, Screening for cervical length, resulting from assisted reproductive technology- IUI, History of Gastric sleeve, Obesity in . History ----- --------- OB History 1. Para 0 [id number] Current ----- --------- Cell free DNA low [...] EFW (oz) 14 oz EFW by: Hadlock ([id number]) Extended Tibia 27.0 mm 19w 5d 43% Gayle Director Loss Prevention 8.2 mm CM 4.2 mm 24% Nicolaides Nasal bone 5.4 mm 6% [facility] Head / Face / Neck Cephalic index [...] Thorax RVOT view. LVOT view. 3-vessel view. 5-gnjymc-ifyyhpj view. Bicaval view. Ductal arch view. Great [...] 5.2 cm. Recommendations ----- --------- Please see [facility] documentation from today. The patient is [...] - 12/05/2024 THIS EXAM WAS PERFORMED AT [facility] NAME: MARIA EUGENIA HINDS : 1995 SEX: F Accession Number: [id number] ORDERING PHYSICIAN: ENRIKE LINDQUIST REFERRING PHYSICIAN: BASIM MARTINEZ Coding ----- --------- Procedures 04311: Ultrasound, uterus, real time with imagedocumentation, and maternal evaluation plus detailed anatomic examination, transabdominalapproach;single or first gestation 96760: Transvaginal Ultrasound (OB) Indication ----- --------- Screening for Anatomic Survey, Screening for cervical length, Pregnancyresulting from assisted reproductive technology- IUI, History of Gastric sleeve, Obesity in . History ----- --------- OB History 1. Para 0 [id number] Current ----- --------- Cell free DNA low [...] EFW (oz) 14 oz EFW by: Hadlock ([id number]) Extended Tibia 27.0 mm 19w 5d 43% Gayle Director Loss Prevention 8.2 mm CM 4.2 mm 24% Nicolaides [...] Thorax RVOT view. LVOT view. 3-vessel view. 1-rmwuaj-bzkimcw view.Bicaval view. Ductal arch view. Great vessels. [...] 5.2 cm. Recommendations ----- --------- Please see M documentation from today. The patient is scheduled in four to six week(s) to complete anatomicsurvey. Subsequent follow up or other follow up as clinically determined byprimary OB provider unless otherwise specified by [facility]. Results forwarded to ordering provider so they can follow up with thepatient as necessary. The copy-to physician of this order is BASIM Herring The ordering physician of this order is ENRIKE Alfaro us Basim Martinez DO [facility] OB US PROCEDURES Final Resul t * (ABNORMAL) Urinalysis with reflex microscopic (12/02/2024 11:40 PM EDT) COLOR,URINE Light-Yellow Yellow 12/03/2024 12:00 AM EDT [facility] APPEARANCE,URI NE Clear Clear 12/03/2024 12:00 AM EDT [facility] SPECIFICY GRAVITY,URINE 1.017 1.001 - 1.030 12/03/2024 12:00 AM EDT [facility] PH,URINE 5.5 5.0 - 9.0 12/03/2024 12:00 AM EDT [facility] LEUKOCYTE ESTERASE,URINE Negative Negative 12/03/2024 12:00 AM EDT [facility] NITRITE,URINE Negative Negative 12/03/2024 12:00 AM EDT [facility] PROTEIN,URINE Negative Negative mg/dL 12/03/2024 12:00 AM EDT [facility] GLUCOSE,URINE (UA) Normal Normal mg/dL 12/03/2024 12:00 AM EDT [facility] KETONES,URINE Negative Negative 12/03/2024 12:00 AM EDT [facility] UROBILINOGEN,U RINE Normal Normal mg/dL 12/03/2024 12:00 AM EDT [facility] BILIRUBIN,URIN E Negative Negative 12/03/2024 12:00 AM EDT [facility] OCCULT BLOOD,URINE 3+ Negative 12/03/2024 12:00 AM EDT [facility] RBC,URINE 1-2 0 - 4 [HPF] 12/03/2024 12:17 AM EDT [facility] WBC,URINE 1-2 0 - 4 [HPF] 12/03/2024 12:17 AM EDT [facility] SQUAMOUS EPITHELIAL CELL,URINE 1-2 0 - 2 [HPF] 12/03/2024 12:17 AM EDT [facility] BACTERIA,URINE 1+ None Seen [HPF] 12/03/2024 12:17 AM EDT [facility] HYALINE CASTS,URINE None 0 - 8 [LPF] 12/03/2024 12:17 AM EDT [facility] MUCUS,URINE 1+(AA) [LPF] 12/03/2024 12:17 AM EDT [facility] Other 12/02/2024 11:4 0 PM EDT 12/02/2024 11:49 PM EDT Narrative [facility] - 12/03/2024 12:17 AM EDT Comment c/o urinary symptoms or increased blood pressure Name Collection Type:: Voided us Eduardo Cruz DO LAB URINE ORDERABLES Final Re sult [facility] [address] [place] [address], [facility] [address] [place] [address] * RECURRENT VAGINITIS (HTRX) (11/20/2024 10:51 AM EDT) [facility] ATOPOBIUM VAGINAE 0 19.961 - 24.689 ppm 11/21/2024 5:57 AM EDT [facility] ATOPOBIUM VAGINAE Not Detected 19.961 - 24.689 ppm 11/21/2024 5:57 AM EDT [facility] BVAB 2,3 (BACTERIAL VAGINOSIS ASSOCIATED BACTERIA 2, 3); MOBILUNCUS SPP 0 19.961 - 24.689 ppm 11/21/2024 5:57 AM EDT [facility] BVAB 2,3 (BACTERIAL VAGINOSIS ASSOCIATED BACTERIA 2, 3); MOBILUNCUS SPP Not Detected 19.961 - 24.689 ppm 11/21/2024 5:57 AM EDT [facility] GLORIA ALBICANS, PARAPSILOSIS, TROPICALIS 0 23.000 - 30.347 ppm 11/21/2024 5:57 AM EDT [facility] GLORIA ALBICANS, PARAPSILOSIS, TROPICALIS Not Detected 23.000 - 30.347 ppm 11/21/2024 5:57 AM EDT [facility] GLORIA GLABRATA 0 23.000 - 31.618 ppm 11/21/2024 5:57 AM EDT [facility] GLORIA GLABRATA Not Detected 23.000 - 31.618 ppm 11/21/2024 5:57 AM EDT [facility] GLORIA KRUSEI 0 23.000 - 30.873 ppm 11/21/2024 5:57 AM EDT [facility] GLORIA KRUSEI Not Detected 23.000 - 30.873 ppm 11/21/2024 5:57 AM EDT [facility] CHLAMYDIA TRACHOMATIS 0 23.000 - 31.586 ppm 11/21/2024 5:57 AM EDT [facility] CHLAMYDIA TRACHOMATIS Not Detected 23.000 - 31.586 ppm 11/21/2024 5:57 AM EDT [facility] GARDNERELLA VAGINALIS 0 19.961 - 24.689 ppm 11/21/2024 5:57 AM EDT [facility] GARDNERELLA VAGINALIS Not Detected 19.961 - 24.689 ppm 11/21/2024 5:57 AM EDT [facility] MEGASPHAERA (TYPES 1, 2) 0 19.961 - 24.689 ppm 11/21/2024 5:57 AM EDT [facility] MEGASPHAERA (TYPES 1, 2) Not Detected 19.961 - 24.689 ppm 11/21/2024 5:57 AM EDT [facility] NEISSERIA GONORRHOEAE 0 23.000 - 32.587 ppm 11/21/2024 5:57 AM EDT [facility] NEISSERIA GONORRHOEAE Not Detected 23.000 - 32.587 ppm 11/21/2024 5:57 AM EDT [facility] TRICHOMONAS VAGINALIS 0 23.000 - 31.995 ppm 11/21/2024 5:57 AM EDT [facility] TRICHOMONAS VAGINALIS Not Detected 23.000 - 31.995 ppm 11/21/2024 5:57 AM EDT [facility] MYCOPLASMA GENITALIUM 0 19.961 - 24.689 ppm 11/21/2024 5:57 AM EDT [facility] MYCOPLASMA GENITALIUM Not Detected 19.961 - 24.689 ppm 11/21/2024 5:57 AM EDT [facility] Tissue 11/20/2024 10:5 1 AM EDT 11/21/2024 1:16 AM EDT us Basim Juan DO LAB BLOOD ORDERABLES Final Resul t [facility] [address] [address] * AFP, SERUM, OPEN SPINA BIFIDA (11/20/2024 10:37 AM EDT) Pathologist [facility] RESULTS Report . [facility] TEST RESULTS: *Screen Negative* . [facility] GEST. AGE ON COLLECTION DATE 18.0 . weeks [facility] GESTAT. AGE BASED ON Ultrasound . [facility] Comment: 18.0 on 11/20/2024 Recalculations are not recommended when gestational dating by LMP and ultrasound are within 10 days. [age] DARWIN [age] [facility] RACE Other . [facility] WEIGHT 256 . lbs [facility] INSULIN DEP DIABETES No . [facility] MULTIPLE GESTATION No . [facility] AFP VALUE 27.6 . ng/mL [facility] AFP MOM 0.87 . [facility] [place] [address] [place] [address] . [facility] INTERPRETATION Comment . [facility] Comment: Interpretation: Screen Negative This result [...] Customer Services to discuss available options. The [employer] recommends amniocentesis be offered to women age 35 and older. COMMENT: Comment . [facility] Comment: Giesl Gandhi, Ph.D., [facility] Director References: Available Upon Request. Multiples Of Median Cutoffs For AFP Elevations [place] 2.5 Black 2.8 IDD 2.0 Twins 4.5 Abbreviation Definitions IDD - Insulin Dep Diabetes OSBR - Open Spina Bifida Risk For further inquiries contact [employer] at [phone]. This test was developed and its performance characteristics determined by [facility]. It has not been cleared or approved by the Food and Drug Administration. Performed at: [address] [id number] Flatware Maker: Lorena Ellis [facility], Phone: [phone] 11/20/2024 10:3 7 AM EDT 11/20/2024 10:49 AM EDT Narrative [facility] - 11/22/2024 1:07 AM EDT N N ULTRASOUND [id number] 18 N 1 [address] White/ us Basim Martinez DO LAB BLOOD ORDERABLES Final Resul t [facility] from Last 3 Months Additional Health Concerns Active Problems Noted Date Diagnosed Date OB Reminders 10/22/2024 Insurance [employer] [place]ICAID [place] Care Teams Body Die Maker Relationship Specialty Start Date End Date Amanda Ford NP [facility] [place] [address] PCP - General Family Medicine 01/17/23
--- OUTSIDE RECORDS SUMMARY | 2025-01-14 12:06 | XMS_ITS | Encounter Summary ---
Author Organization [facility] tem Address [id number] [address] [place] [address] Care Team Providers Care Minister Of Religion Name Role Phone No Pcp, No Pcp Primary Care Provider Unavailabl e Encounter Details Date Type Department Care Team (Late Contact Info) Description 12/04/2024 Orders Only Maternal- Medicine at [facility] [address] [place] [id number] Ref Prov, [place] [address] Social History Tobacco Use Types Packs/Day Years [...] 02/07/2025 9:45 AM EDT Appointment Maternal Medicine [place] [address] [place] [address] documented as of this encounter [...] on filedocumented in this encounter Care Teams Minister Of Religion Relationship Specialty Start Date End Date No Pcp, [place] [address] PCP - General Family Medicine 05/20/20 documented as of this encounter
--- OUTSIDE RECORDS SUMMARY | 2025-01-14 12:06 | XMS_ITS | Clinical Summary ---
Author Organization Alertss tem Address [id number] [address] [place] [address] Care Team Providers Care Application Systems Engineer Name Role Phone No Pcp, No Pcp Primary Care Provider Unavailabl e Allergies Active Allergy Reactions Criticality Noted Date Comments Nsaids (Non-Steroidal Anti-I nflammatory Drug) 10/26/2024 Medications [id number] c acid ( 19) 29 mg iron- [...] Description 01/04/2025 Orders Only Maternal- Medicine at [facility] [address] [place] [address] Krystyna Dick RN Previous gastric bypass affecting , antepartum (Primary Dx); Hypothyroidism affecting in second trimester; 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 (CMS-HCC); Obesity affecting in second trimester, unspecified obesity type 01/03/2025 Telephone Maternal Medicine [place] [address] [address] Roslyn Griffin RN 01/03/2025 Travel 12/05/2024 2:00 PM EDT Office Visit Maternal- Medicine at [facility] [address] [place] [address] Enrike Garcia MD 20 weeks gestation of (Primary Dx); Previous gastric bypass affecting , antepartum; Obesity affecting in second trimester, unspecified obesity type; Hypothyroidism affecting in second trimester; 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 ([facility]); headache in second trimester 12/05/2024 12:36 PM EDT - 12/05/2024 11:59 PM EDT Hospital Encounter [facility] US Imaging [address] [place] [phone] Screening, , for anatomic survey Discharge Disposition: Home 12/05/2024 Orders Only Maternal- Medicine at [facility] [address] [place] [address] Chiquita Shen RN Previous gastric bypass affecting , antepartum (Primary Dx); Hypothyroidism affecting in second trimester; 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 (CMS-HCC); Obesity affecting in second trimester, unspecified obesity type; Encounter for supervision of resulting from assisted reproductive technology, antepartum 12/05/2024 Travel 12/04/2024 Telephone Maternal- Medicine at [facility] [address] [place] [address] Chiquita Shen RN 12/04/2024 Orders Only Maternal- Medicine at [facility] [address] [place] [address] Ref Prov, Not In System 12/04/2024 Abstract Maternal- Medicine at [facility] [address] [place] [address] Enrike Garcia MD 10/26/2024 Orders Only Maternal- Medicine at [facility] [address] [place] [address] Ref Prov, Not In System 10/26/2024 Abstract Maternal- Medicine at [facility] [address] [place] [address] Enrike Garcia MD from Last 3 Months [...] 02/07/2025 9:45 AM EDT Appointment Maternal Medicine [place] [address] [facility] [address] [place] [address] Health Maintenance Due Date Last [...] trimester 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 ([facility]) Obesity affecting in second trimester, unspecified [...] period is included. Anatomical Region Laterality Modality OB-RN PHYSICIAN OFFICE Ultrasound 01/03/2025 2:30 PM EDT Narrative 01/04/2025 6:22 PM EDT NAME: MARIA EUGENIA HINDS : 1995 SEX: F Accession Number: [id number] ORDERING PHYSICIAN: ENRIKE GARCIA REFERRING PHYSICIAN: BASIM BIRMINGHAM Coding ----- --------- Procedures 30611: Follow-up Ultrasound, per fetus Indication ----- --------- Screening for follow-up survey, resulting from assisted reproductive technology- IUI, History of Gastric sleeve, Obesity in . History ----- --------- OB History 1. Para 0 [id number] Current ----- --------- Cell free DNA low [...] EFW (oz) 11 oz EFW by: Hadlock (SDQ-BF-YG-FL) Extended Tibia 40.2 mm 25w 3d 79% Gayle Steam Distribution Supervisor 5.0 mm CM 2.7 mm <1% Nicolaides [...] Thorax RVOT view. LVOT view. 3-vessel view. 6-kbdvaj-qpegrht view. Bicaval view. Abdomen Genitals. Extremities / [...] 6 cm. Recommendations ----- --------- Please see [facility] recommendations from prior clinical and/or ultrasound report documentation. The patient is scheduled in four to six week(s) to complete anatomic survey. Subsequent follow up or other follow up as clinically determined by primary OB provider unless otherwise specified by [facility]. Results forwarded to ordering provider so they can follow up with the patient as necessary. Procedure Note Enrike Gracia MD - 01/04/2025 NAME: MARIA EUGENIA HINDS : 1995 SEX: F Accession Number: [id number] ORDERING PHYSICIAN: ENRIKE GARCIA REFERRING PHYSICIAN: BASIM BIRMINGHAM Coding ----- --------- Procedures 10244: Follow-up Ultrasound, per fetus Indication ----- --------- Screening for follow-up survey, resulting from assistedreproductive technology- IUI, History of Gastric sleeve, Obesity in . History ----- --------- OB History 1. Para 0 [id number] Current ----- --------- Cell free DNA low [...] by U/S 25 w + 0 d DARWNI by U/S: 04/18/2025 Assigned: based on the [...] EFW (oz) 11 oz EFW by: Hadlock (OSP-SH-LK-FL) Extended Tibia 40.2 mm 25w 3d 79% Gayle Steam Distribution Supervisor 5.0 mm CM 2.7 mm <1% Nicolaides [...] Thorax RVOT view. LVOT view. 3-vessel view. 4-wixrdh-wduciem view.Bicaval view. Abdomen Genitals. Extremities / Left [...] TRANSCRIBED RESULTS from Last 3 Months Insurance [facility] MEDICAID Care Teams Application Systems Engineer Relationship Specialty Start Date End Date No Pcp, No Pcp LUKE Owens [phone] PCP - General Family Medicine 05/20/20
--- OUTSIDE RECORDS SUMMARY | 2025-01-14 12:06 | XMS_ITS | Encounter Summary ---
Author Organization [facility] Address [address] [place] [address] Care Team Providers Care Waterworks Pump Station Operator Name Role Phone Amanda Ford IMPORT CUSTOMER SERVICE MANAGER Primary Care Provider Encounter Details Date Type Department Care Team (Late Contact Info) Description 05/04/2023 Abstract [facility] [address] [place] [address] Lilibeth Green LPN [address] [place] [address] [place] [address] Social History Tobacco Use Types Packs/Day Years [...] 11:20 AM EDT Routine [facility] [address] [place] [address] Mima Duenas, IMPORT CUSTOMER SERVICE MANAGER [address] [place] [phone] 02/20/2025 1:00 PM EST Office Visit [facility] [address] [facility] [place] [phone] Les Martinez DO [address] [facility] [place] [address] 08/21/2025 9:30 AM EDT Office Visit [facility] Endocrin[facility] [address] [place] [address] Darleen Sinclair MD [address] [place] [address] documented as of this encounter Visit Diagnoses Not on filedocumented in this encounter Care Teams Waterworks Pump Station Operator Relationship Specialty Start Date End Date Amanda Ford NP [address] [place] [address] [place] [address] PCP - General Family Medicine 01/17/23 documented as of this encounter
--- OUTSIDE RECORDS SUMMARY | 2025-01-14 12:06 | XMS_ITS | Encounter Summary ---
Author Organization [facility] Address [address] [place] [address] Care Team Providers Care Office Services Assistant Name Role Phone Unavailable Primary Care Provider Unavailabl e Source Comments In the event this information is protected by the Federal Confidentiality of Alcohol and Drug AbusePatient Records regulations: The Federal rules restrict any use of the information to criminally investigate or prosecute any alcohol or drug abuse patient.[facility] Encounter Details Date Type Department Care Team (Late st Contact Info) Description 05/15/2024 Get Medical Advice Reproductive Endocrinology Infertility [address] [place] [address] Shelly Hernandez APRN.CABLE TENDER [address] [place] [address] Cryobio order Social History Tobacco Use Types Packs/Day Years Used Date Smoking Tobacco: Never Assessed Area Deprivation Index Answer Date Claudio rded National Score (1-100), lower number is lower ri sk 82 02/28/2024 State Score (1-10), lower number is lower risk 7 02/28/2024 Data from: https://www.neighborhoodatlas.medicine.[facility].edu/. Last address used for calculation [address] [...]
--- OUTSIDE RECORDS SUMMARY | 2025-01-14 12:06 | XMS_ITS | Patient Health Record ---
Author Organization [facility] [place] Address [address] [place] [address] Care Team Providers Care Vice President Of Software Development Name Role Phone Robin Marquez MD Primary Care Provider Unavail able Reason For Referral No Information Plan Of Treatment No Information
--- OUTSIDE RECORDS SUMMARY | 2025-01-14 12:06 | XMS_ITS | Encounter Summary ---
Author Organization [facility] Address [address] [place] [address] Care Team Providers Care E Business Manager Name Role Phone JovaniAmanda lundy Nikole COUNTY TAX ASSESSOR Primary Care Provider Encounter Details Date Type Department Care Team (Late st Contact Info) Description 03/02/2024 Orders Only [facility] [address] [place] [address] Esperanza [place], [place] [address] [place] [address] Social History Tobacco Use Types Packs/Day Years [...] 11:20 AM EDT Routine [facility] [address] [facility] [place] [address] Mima Duenas, TY [address] [place] [address] 02/20/2025 1:00 PM EST Office Visit GUDELIA HERNANDEZ [address] [facility] [place] [phone] Les Martinez DO [address] [facility] [place] [address] 08/21/2025 9:30 AM EDT Office Visit [facility] Endocrinology [address] [place] [address] Darleen Sinclair MD [address] [place] [address] documented as of this encounter Procedures [...] on filedocumented in this encounter Care Teams E Business Manager Relationship Specialty Start Date End Date Amanda Ford NP [address] [facility] [place] [address] PCP - General Family Medicine 01/17/23 documented as of this encounter
--- OUTSIDE RECORDS SUMMARY | 2025-01-14 12:06 | XMS_ITS | Encounter Summary ---
Author Organization [facility] Address [address] [place] [address] Care Team Providers Care Nutritional Chemist Name Role Phone Amanda Ford FRONT OF HOUSE MANAGER Primary Care Provider Encounter Details Date Type Department Care Team (Late st Contact Info) Description 01/19/2023 Clinisync Result Encounter [facility] External Department Unsolicited Basim Martinez, DO [address] [place] [address] [place], [place] [address] Social History Tobacco Use Types Packs/Day Years [...] AM EDT Routine [facility] [address] [place] [address] Mima Duenas, FRONT OF HOUSE MANAGER [address] [place] [address] 02/20/2025 1:00 PM EST Office Visit [facility] [place] [address] [facility] [place] [address] Basim Martinez DO [address] [facility] [place] [address] 08/21/2025 9:30 AM EDT Office Visit [facility] Endocrin[facility] [address] [place] [address] Darleen Sinclair MD [address], [address] [place] [address] documented as of this encounter Procedures Procedure [...] EDT Narrative 01/19/2023 3:46 PM EDT The [address] [address] Ultrasound Report Signed Patient: GUZMAN DEL CID MR#: [id number] : 1995 Acct:[id number] Age/Sex: 27 / F ADM Date: 01/19/23 Loc: US Attending Dr: Basim Martinez D.O. Ordering Physician: Basim Martinez D.O. Date of Service: 01/19/23 Procedure(s): US pelvis transvaginal Accession Number(s): [id number] cc: Basim Martinez D.O.; AMANDA FORD [place] [id number] Patient Name: GUZMAN DEL CID MRN: [id number] date: 1995 Sex: F Assigned Patient Location: US Current Patient Location: US Accession/Order Number: [id number] Exam Date: 01/19/2023 14:15 Report Date: 01/19/2023 [...] Signed By: 01/19/23 1549 DD/ 1546 TD/TT: Certified Teacher Assistant: Procedure Note Radiology, Radiologist, MD - 01/19/2023 [place] [address] Ultrasound Report Signed Patient: GUZMAN DEL CIDMR#: [id number] : 1995Acct:[id number] Age/Sex: 27 / FADM Date: 01/19/23 Loc: US Attending Dr: Basim Martinez D.O. Ordering Physician: Basim Martinez D.O. Date of Service: 01/19/23 Procedure(s): US pelvis transvaginal Accession Number(s): [id number] cc: Basim Martinez D.O.; AMNADA FORD [place] [address] Patient Name: GUZMAN DEL CID MRN: [id number] date: 1995 Sex: F Assigned Patient Location: US Current Patient Location: US Accession/Order Number: [id number] Exam Date: 01/19/2023 14:15 Report Date: 01/19/2023 [...] M.D. Signed By:01/19/23 1549 DD/ 1546 TD/TT: Certified Teacher Assistant: us Basim Juan DO [facility]AG[facility] Final Result * ALL DEHYDROEPIANDROSTERONE (01/19/2023 2:10 PM EDT) Pathologist [facility] DHEA, SERUM 141 31 - 701 ng/dL [facility] Comment: This test was developed and its performance characteristics determined by [facility]. It has not been cleared or approved by the Food and Drug Administration. Performed at: [address] [id number] Director Of User Experience: Jon Horton MD, Phone: [phone] 01/19/2023 2:10 PM EDT 01/19/2023 2:12 PM EDT Narrative CLINISYNC - 01/25/2023 6:[address] [facility] Juan CLINISYNC Final Result [facility] * ALL ANTI-MULLERIAN HORMONE (01/19/2023 2:10 PM EDT) [facility] ANTI-MULLERIAN HORMONE (AMH) 0.895 . ng/mL [facility] Comment: For assays employing antibodies, the possibility exists for interference by heterophile antibodies in the samples.1 1.Yessenia Mayfield. Interferences in Immunoassays - still a threat. Clin. Chem. 2000; 46: 2798-3569. This test was developed and its performance characteristics determined by [facility]. It has not been cleared or approved by the Food and Drug Administration. Reference Range: Females 26 - 30y: 1.03 - 11.10 Median 4.20 AMH concentrations of >= 1.06 ng/mL is correlated with a better response to ovarian stimulation, produced more retrievable oocytes and higher odds of live according to Gleicher et al. Fertility and Sterility. 2010: 94:1345-0046. The current AMH test method correlates with [...] exclude an AMH-secreting ovarian tumor. Performed at: [facility] [address] [place] [id number] Director Of User Experience: James Pereyra MD, Phone: [phone] 01/19/2023 2:10 PM EDT 01/19/2023 2:12 PM EDT Narrative CLINISYNC - 01/23/2023 8:07 PM EDT us Basim Juan DO CLINIS[facility]NC Final Result Performing Organization Address City/[facility]/ZIP Co de Phone Number CLINISYMN TB * (ABNORMAL) [facility] PROLACTIN (01/19/2023 2:10 PM EDT) PROLACTIN 4.4(A) 4.8 - 23.3 ng/mL [facility] Comment: Performed at: [address] [id number] Director Of User Experience: Isaac Dietz PhD, Phone: [phone] 01/19/2023 2:10 PM EDT 01/19/2023 2:12 PM EDT Narrative CLINISYNC - 01/20/2023 4:07 AM EDT Basim Juan DO CLINISYNC Final Result Performing Organization Address City/[facility]/ZIP Co de Phone Number [facility] * ALL FOLLICLE STIMULATING HORMONE (01/19/2023 2:10 PM EDT) FSH 8.4 . mIU/mL [facility] Comment: Adult Female: Follicular phase 3.5 - 12.5 Ovulation phase 4.7 - 21.5 Luteal phase 1.7 - 7.7 Postmenopausal 25.8 - 134.8 01/19/2023 2:10 PM EDT 01/19/2023 2:12 PM EDT Narrative CLINISYNC - 01/20/2023 4:07 AM EDT us Basim Juan DO CLINISYNC Final Result Performing Organization Address City/[facility]/ZIP Co de Phone Number CLINISYNC TBH * [...] DO CLINISYNC Final Result Performing Organization Address [facility] Co de Phone Number CLINISYNC [facility] * ALL DHEA SULFATE (01/19/2023 2:10 PM EDT) DHEA-SULFATE 91.4 84.8 - 378.0 ug/dL [facility] 01/19/2023 2:10 PM EDT 01/19/2023 2:12 PM EDT Narrative CLINISYNC - 01/20/2023 4:07 AM EDT Basim Juan DO CLINISYNC Final Result Performing Organization Address City/[facility] Co de Phone Number CLINISYMN TB documented in this encounter Visit Diagnoses Not on filedocumented in this encounter Care Teams Nutritional Chemist Relationship Specialty Start Date End Date Amanda Ford NP [address] [place] [address] [place] [address] PCP - General Family Medicine 01/17/23 documented as of this encounter
--- OUTSIDE RECORDS SUMMARY | 2025-01-14 12:06 | XMS_ITS | Encounter Summary ---
Author Organization [employer] tem Address [id number] [address] [place] [address] Care Team Providers Care Director Rehabilitation Program Name Role Phone No Pcp, No Pcp Primary Care Provider Unavailabl e Encounter Details Date Type Department Care Team (Late st Contact Info) Description 01/03/2025 Telephone Maternal Medicine [place] [address] [facility] [address] [place] [address] Roslyn Griffin RN Social History [...] 02/07/2025 9:45 AM EDT Appointment Maternal Medicine [place] [address] [facility] [address] [place] [address] documented as of this encounter Visit Diagnoses Not on filedocumented in this encounter Care Teams Director Rehabilitation Program Relationship Specialty Start Date End Date No Pcp, No Pcp LUKE Owens [address] PCP - General Family Medicine 05/20/20 documented as of this encounter
--- OUTSIDE RECORDS SUMMARY | 2025-01-14 12:06 | XMS_ITS | Encounter Summary ---
Author Organization [facility] Address [address] [place] [address] Care Team Providers Care Cisco Consultant Name Role Phone Unavailable Primary Care Provider Unavailabl e Source Comments In the event this information is protected by the Federal Confidentiality of Alcohol and Drug AbusePatient Records regulations: The Federal rules restrict any use of the information to criminally investigate or prosecute any alcohol or drug abuse patient.[facility] Encounter Details Date Type Department Care Team (Latest Contact Info) Description 05/09/2024 Patient Msg Reproductive Endocrinology Infertility [address] [place] [address] Shelly Hernandez APRN.ENVIRONMENTAL RESTORATION PLANNER [address] [place] [address] Summary of Next Steps Social History Tobacco Use Types Packs/Day Years Used Date Smoking Tobacco: Never Assessed Area Deprivation Index Answer Date Claudio rded National Score (1-100), lower number is lower ri sk 82 02/28/2024 State Score (1-10), lower number is lower risk 7 02/28/2024 Data from: https://www.neighborhoodatlas.medicine.[facility].edu/. Last address used for calculation [address] [...]
--- OUTSIDE RECORDS SUMMARY | 2025-01-14 12:06 | XMS_ITS | Encounter Summary ---
Author Organization [facility] Address [address] [place] [address] Care Team Providers Care Natural Resources Extension Educator Name Role Phone Amanda Ford MAPPING EDITOR Primary Care Provider Encounter Details Date Type Department Care Team (Late st Contact Info) Description 01/11/2025 Telephone [facility] [address] [place] [address] Les Martinez DO [address] [place], [id number] Social History Tobacco Use Types Packs/Day Years [...] 11:20 AM EDT Routine [facility] HERNAN[facility]Z [address] [facility] [place] [phone] Mima Duenas NP [address] [facility] [place] [address] 02/20/2025 1:00 PM EST Office Visit [facility] HERNADNEZ [address] [facility] [place] [address] Les Martinez DO [address] [facility] [address] [place], [place] [phone] 08/21/2025 9:30 AM EDT Office Visit GUDELIA B[facility]zi Endocrinology [address] [place] [address] Darleen Sinclair MD [address] [place] [address] documented as of this encounter Goals Goal Patient Goal Type Associated Problems Recent Progress Patient-Stated? Author Reminders Care Plan OB Reminders No Open Scheduling, Background documented as of this encounter Visit Diagnoses Not on filedocumented in this encounter Additional Health Concerns Active Problems Noted Date Diagnosed Date OB Reminders 10/22/2024 documented as of this encounter Care Teams Natural Resources Extension Educator Relationship Specialty Start Date End Date Amanda Ford NP [address] [facility] [place] [id number] PCP - General Family Medicine 01/17/23 documented as of this encounter
--- OUTSIDE RECORDS SUMMARY | 2025-01-14 12:06 | XMS_ITS | Encounter Summary ---
Author Organization [employer]s tem Address [id number] [address] [place] [address] Care Team Providers Care Advanced Clinical Specialist Name Role Phone No Pcp, No Pcp Primary Care Provider Unavailabl e Reason for Referral * Diagnostic Imaging (Routine) - Pending Review Specialty Diagnoses / Procedures Referred By Saud tavera Referred To Contact Maternal and Medicine Diagnoses Previous gastric bypass affecting , antepartum Hypothyroidism affecting in second trimester 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 ([facility]) Obesity affecting in second trimester, unspecified obesity type Procedures [facility] with or without consult Latricia Garcia MD [address] [address] Phone: tel: fax: Maternal- Medicine at [facility] [address] [place] [address] Phone: tel: fax: Referral ID Status Reason Start Date Expiration Date V isits Requested Visits Authorized [id number] Pending Review 01/04/2025 01/04/2026 1 1 Encounter Details Date Type Department Care Team (Late st Contact Info) Description 01/04/2025 Orders Only Maternal- Medicine at [facility] [address] [place] [address] Krystyna Dick RN Previous gastric bypass affecting , antepartum (Primary Dx); Hypothyroidism affecting in second trimester; 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 ([facility]); Obesity affecting in second trimester, unspecified obesity [...] 02/07/2025 9:45 AM EDT Appointment Maternal Medicine [place] [address] [facility] [address] [place] [address] Scheduled Orders Name Type Priority Associated Diagnoses Orde r Schedule US MFM with or without consult Imaging Routine Previous gastric bypass affecting , antepartum Hypothyroidism affecting in second trimester 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 ([facility]) Obesity affecting in second trimester, unspecified obesity type Expected: 02/03/2025 (Approximate), Expires: 01/04/2026 documented as of this encounter Visit Diagnoses Diagnosis Previous gastric bypass affecting , antepartum- Primary Hypothyroidism affecting in second trimester 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 ([facility]) Obesity affecting in second trimester, unspecified obesity type documented in this encounter Care Teams Advanced Clinical Specialist Relationship Specialty Start Date End Date No Pcp, [place] [address] PCP - General Family Medicine 05/20/20 documented as of this encounter
--- OUTSIDE RECORDS SUMMARY | 2025-01-14 12:06 | XMS_ITS | Encounter Summary ---
Author Organization [facility] Address [address] [place] [address] Care Team Providers Care Aircraft Pneudraulic Systems Mechanic Name Role Phone Amanda Ford GLOBAL PROJECT MANAGER Primary Care Provider Encounter Details Date Type Department Care Team (Late st Contact Info) Description 01/10/2025 Telephone [facility]NA[facility] [address] [facility] [place] [address] Jojo Ames PA [address] [place], [facility] Social History Tobacco Use Types Packs/Day Years [...] guys about it wheneverit is convenient at [phone]. Thank you. Had provider review labs to go over with patient when call is returned. documented in this encounter Plan of Treatment Upcoming Encounters Date Type Department Care Team (Late st Contact Info) Description 01/16/2025 11:20 AM EDT Routine GUDELIA HERNANDEZ [address] [facility] [place] [address] Mima Duenas, TY [address] [place] [phone] 02/20/2025 1:00 PM EST Office Visit GUDELIA HERNANDEZ [address] [facility] [place] [address] Les Martinez DO [address] [place], [place] [phone] 08/21/2025 9:30 AM EDT Office Visit [facility] [place] [facility] [address] [place] [address] Darleen Sinclair MD [address] [place] [address] documented as of this encounter Goals Goal Patient Goal Type Associated Problems Recent Progress Patient-Stated? Author Reminders Care Plan OB Reminders No Open Scheduling, Background documented as of this encounter Visit Diagnoses Not on filedocumented in this encounter Additional Health Concerns Active Problems Noted Date Diagnosed Date OB Reminders 10/22/2024 documented as of this encounter Care Teams Aircraft Pneudraulic Systems Mechanic Relationship Specialty Start Date End Date Amanda Ford NP [address] [place] [address] PCP - General Family Medicine 01/17/23 documented as of this encounter
--- OUTSIDE RECORDS SUMMARY | 2025-01-14 12:06 | XMS_ITS | Encounter Summary ---
Author Organization [facility] tem Address [id number] [address] [place] [address] Care Team Providers Care Tooth Cutter Pinion Name Role Phone No Pcp, No Pcp Primary Care Provider Unavailabl e Encounter Details Date Type Department Care Team (Late st Contact Info) Description 12/04/2024 Abstract Maternal- Medicine at [facility] [address] [place] [phone] Latricia Garcia MD [address] [facility], [address] [place] [address] Social History Tobacco Use Types Packs/Day Years [...] 02/07/2025 9:45 AM EDT Appointment Maternal Medicine [place] [address] [facility] [address] [place] [address] documented as of this encounter Visit Diagnoses Not on filedocumented in this encounter Care Teams Tooth Cutter Pinion Relationship Specialty Start Date End Date No Pcp, [place] [address] PCP - General Family Medicine 05/20/20 documented as of this encounter
--- OUTSIDE RECORDS SUMMARY | 2025-01-14 12:06 | XMS_ITS | Patient Health Record ---
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 Problem Anxiety state (414913524) Anxiety state, unspecified (F41.1) Active confirmed Problem Long-term current use of drug therapy (427765517) High risk medications (not anticoagulants) long-term use (Z79.899) Active confirmed Problem Bipolar affective disorder, currently manic, mild (557726691) Bipolar disorder, current episode manic without psychotic features, mild (F31.11) Active confirmed Vital Signs Heart Rate 84 /min 10/24/2024 Oximetry 98 % 10/24/2024 Blood pressure diastolic 68 mm Hg 10/24/2024 Height 71 in 10/24/2024 Blood pressure systolic 124 mm Hg 10/24/2024 Weight 218.2 lbs 10/24/2024 BMI 30.43 kg/m2 10/24/2024 Encounters Encounter Location Date Provider Diagnosis [facility] [address] [place] [address] 01/25/2024 [place] [address] [place] [address] 02/24/2024 [place] [address] [place] [address] 05/10/2024 [facility] Bipolar disorder, current episode manic without psychotic features, mild F31.11 and Anxiety state, unspecified F41.1 [facility] [address] [place] [address] 05/24/2024 [facility] Bipolar disorder, current episode manic without psychotic features, mild F31.11 [facility] [address] [place] [address] 01/07/2025 Julieta Jefferson Bipolar disorder, current episode manic without psychotic features, mild F31.11 [facility] [address] [place] [address] 01/25/2024 Julieta Jefferson Bipolar disorder, current episode manic without psychotic features, mild F31.11 [facility] [address] [place] [address] 04/25/2024 Julieta Jefferson Bipolar disorder, current episode manic without psychotic features, mild F31.11 and Anxiety state, unspecified F41.1 [facility] [address] [place] [address] 08/24/2024 Jennifer Hahn Bipolar disorder, current episode manic without psychotic features, mild F31.11 and Anxiety state, unspecified F41.1 [facility] [address] [place] [address] 09/25/2024 Jennifer Hahn Bipolar disorder, current episode manic without psychotic features, mild F31.11 [facility] [address] [place] [address] 10/24/2024 Jennifer Hahn Bipolar disorder, current episode [...] increasing protein as appropriate. Discussed referral to poultry farm supervisor if problem persists. . . Continue [...] - F31.11) cont current treatment transfer to [facility] pharmacy . . Informed consent obtained: YES, we discussed the diagnosis/diagnoses , the treatment options, treatment(s) recommended vs. no treatment. We discussed risks and benefits of treatment options, treatment recommendations vs. no treatment. . . Discussed lifestyle/diet changes to help improve BMI. Recommend increasing activity, reducing portion sizes, limiting carbohydrates, increasing protein as appropriate. Discussed referral to poultry farm supervisor if problem persists. . . Second [...] Start Date Coverage End Date [facility] [address] [place] [address] [id number] GUZMAN DEL CID Self - patient is the insured 3 Phil [facility] [address] [place] [address] [id number] GUZMAN DEL CID Self - patient is the insured 3 [facility] [address] [place] [address] [id number] GUZMNA DEL CDI Self - patient is the insured 1 2 [employer]termed 22 [address] [place] [address] [id number] GUZMAN DEL CID Self - patient is the insured 1 3 [facility] MEDICAID [facility] after [employer]termed 22 [address] [place] [address] [id number] GUZMAN DEL CID Self - patient is the insured 1 3 Medical (General) History Medical History History ICD Code obesity bipolar hypothyroid Surgical History Surgery Date(Month/Year) cholecystectomy gastric SLEEVE 04/2020
--- OUTSIDE RECORDS SUMMARY | 2025-01-14 12:06 | XMS_ITS | Encounter Summary ---
Author Organization [facility] Address [facility] [place] [id number] [address] [place] [address] Care Team Providers Care Healthcare Marketer Name Role Phone No Pcp, No Pcp [...] 02/07/2025 9:45 AM EDT Appointment Maternal Medicine [place] [address] [place] [address] documented as of this encounter Visit Diagnoses Not on filedocumented in this encounter Care Teams Healthcare Marketer Relationship Specialty Start Date End Date No Pcp, [place] [address] PCP - General Family Medicine 05/20/20 documented as of this encounter
--- OUTSIDE RECORDS SUMMARY | 2025-01-14 12:06 | XMS_ITS | Encounter Summary ---
Author Organization [facility] Address [address] [place] [address] Care Team Providers Care Proof Reader Name Role Phone Amanda Ford PRODUCT PROMOTER SALES PERSON Primary Care Provider Encounter Details Date Type Department Care Team (Late st Contact Info) Description 01/11/2025 Clinisync Result Encounter NOMS External Department Unsolicited Les Martinez, DO [address] [place] [address] Social History Tobacco Use Types Packs/Day Years [...] Routine [facility] [address] [place] [phone] Mima Duenas, PRODUCT PROMOTER SALES PERSON [address] [place] [address] 02/20/2025 1:00 PM EST Office Visit [facility] [place] [facility] [address] [facility] [place] [phone] Les Martinez DO [address] [facility] [address] [place], [place] [phone] 08/21/2025 9:30 AM EDT Office Visit [facility] [place] [facility] [address] [place] [address] Darleen Sinclair MD [address] [place] [address] documented as of this encounter Goals Goal Patient Goal Type Associated Problems Recent Progress Patient-Stated? Author Reminders Care Plan OB Reminders No Open Scheduling, Background documented as of this encounter Procedures Procedure Name Priority Date/Time Associated Diagnosis Comments ALL THYROID STIM HORMONE Routine 01/11/2025 2:48 PM EDT documented in this encounter Results * ALL THYROID STIM HORMONE (01/11/2025 2:48 PM EDT) THYROID STIMULATING HORMONE 2.449 0.358 - 3.740 uIU/mL TBH 01/11/2025 2:48 PM EDT 01/11/2025 2:51 PM EDT Narrative [facility] - 01/11/2025 3:35 PM EDT us Les Martinez DO [facility] Final Result [facility] TB documented in this encounter Visit Diagnoses Not on filedocumented in this encounter Additional Health Concerns Active Problems Noted Date Diagnosed Date OB Reminders 10/22/2024 documented as of this encounter Care Teams Proof Reader Relationship Specialty Start Date End Date Amanda Ford NP [address] [place] [address] [place] [address] PCP - General Family Medicine 01/17/23 documented as of this encounter
--- OUTSIDE RECORDS SUMMARY | 2025-01-14 12:06 | XMS_ITS | Encounter Summary ---
Author Organization [facility] Address [address] [place] [address] Phone Care Team Providers Care Rn Digestive Name Role Phone Unavailable Primary Care Provider Unavailabl e Encounter Details Date Type Department Care Team (Late st Contact Info) Description 05/02/2024 Scanned Document Yelena Castanon Pavilimanisha [address] [address] [place] [address] [address] Department of STAFF PHYSICAL THERAPIST-[place] [address] Social History Tobacco Use Types Packs/Day Years [...]
--- OUTSIDE RECORDS SUMMARY | 2025-01-14 12:06 | XMS_ITS | Encounter Summary ---
Author Organization [facility] Address [address] [place] [address] Care Team Providers Care Hazmat Truck Driver Name Role Phone Amanda Ford TICKET AGENT Primary Care Provider Encounter Details Date Type Department Care Team (Late st Contact Info) Description 01/09/2025 Clinisync Result Encounter NOMS External Department Unsolicited Jojo Ames PA [address] [facility] [place] [address] Social History Tobacco Use Types Packs/Day Years [...] AM EDT Routine [facility] [address] [facility] [place] [address] Mima Duenas, TICKET AGENT [address] [facility] [place] [address] 02/20/2025 1:00 PM EST Office Visit [facility] [place] [facility] [address] [facility] [place] [phone] Les Martinez, [address] [facility] [address] [place], [place] [phone] 08/21/2025 9:30 AM EDT Office Visit [facility] [place] [facility] [address] [place] [address] Darleen Sinclair MD [address] [place] [address] documented as of this encounter Goals [...] 1 HOUR (01/09/2025 12:00 PM EDT) Pathologist [facility] GLUCOSE 1 HOUR 118 <130 mg/dL TB 01/09/2025 12:0 0 PM EDT 01/09/2025 12:02 PM EDT Narrative [facility] - 01/09/2025 12:55 PM EDT Jojo OGDEN LAB BLOOD ORDERABLES Final Resul t CLINISYPENDING SALE TO [facility] * (ABNORMAL) ALL CBC WITH AUTO DIFF (01/09/2025 12:00 PM EDT) Pathologist [facility] WBC 11.8(H) 4.0 - 11.0 10 3/uL [...] documented as of this encounter Care Teams Hazmat Truck Driver Relationship Specialty Start Date End Date Amanda Ford NP [address] [place], [place] [phone] PCP - General Family Medicine 01/17/23 documented as of this encounter
--- OUTSIDE RECORDS SUMMARY | 2025-01-14 12:06 | XMS_ITS | Clinical Summary ---
Author Organization [facility] Address [address] [place] [address] Phone Care Team Providers Care Room Service Server Name Role Phone Unavailable Primary Care Provider [...] patient's age to complete this topic Insurance [facility] MED[facility]
--- OUTSIDE RECORDS SUMMARY | 2025-01-14 12:06 | XMS_ITS | Encounter Summary ---
Author Organization [facility] Address [address] [place] [address] Care Team Providers Care Retrofit Installer Name Role Phone Logan Amanda Nikole CREDIT RISK REVIEW OFFICER Primary Care Provider Encounter Details Date Type Department Care Team (Late Contact Info) Description 09/20/2024 Abstract [facility] HERNANDEZ [address] [place] [address] Les Martinez DO [address] [facility] [address] [place], [place] [address] Social History Tobacco Use Types Packs/Day Years [...] 11:20 AM EDT Routine [facility] HERNANDEZ [address] [facility] [place] [address] Mima Duenas NP [address] [place] [address] 02/20/2025 1:00 PM EST Office Visit [facility] HERNANDEZ [address] [facility] [place] [address] Les Martinez DO [address] [place], [place] [address] 08/21/2025 9:30 AM EDT Office Visit [facility] [place] [facility] [address] [place] [address] Darleen Sinclair MD [address] [place] [address] documented as of this encounter Visit Diagnoses Not on filedocumented in this encounter Care Teams Retrofit Installer Relationship Specialty Start Date End Date Amanda Ford NP [address] [facility] [address] [place] [phone] PCP - General Family Medicine 01/17/23 documented as of this encounter
== END 2025-01-11 14:25 | disposition home or self-care (01) ==
LOC: FBCO 01-14 11:55 → FBC 01-14 11:55
PROVIDERS: PCP Nurse Practitioner Family; Visit Provider Obstetrics & Gynecology
DX: O26.893 Other specified pregnancy related conditions, third trimester (principal); O36.8130 Decreased fetal movements, third trimester, not applicable or unspecified; O99.283 Endocrine, nutritional and metabolic diseases complicating pregnancy, third trimester; Z3A.31 31 weeks gestation of pregnancy; E07.9 Disorder of thyroid, unspecified
CPT/HCPCS: 36415; 59025; 84443

== ENCOUNTER 2025-01-11 14:41 | Outpatient (OUT) | payer MEDICAID, SELFPAY ==
--- OUTSIDE RECORDS SUMMARY | 2023-08-31 06:45 | XMS_ITS | Continuity of Care Document ---
Author Organization [facility] Address [address] [place] [address] Phone Care Team Providers Care Chief Talent Officer Name Role Phone Jo Melvin DDS Unavailable [...] Visit Dental Bitewig-single Film Intraoral-periapical 1st Film Ecibubhcj-keziuztmeq-azpz Additional Jul Oral Hygiene Instruction Limited Oral Eval Oral/Facial Photographic Images 024 Prophylaxis Adult Nutrit Couns For Control Of [place] Dis Jul Oral Hygiene Instruction Oral Hygiene [...] Diagnoses Date Provider Providers Copied on Encounter [facility], [address] [place] [address], [id number], tel:[phone] Dental Clinic de (chief complaint) Encounter for screening for dental disorders [facility]. . tel:[phone] [facility], [address] [place] [address], [id number], [place] tel:[phone] Dental Clinic dl (chief complaint) Encounter for screening for dental disorders [facility]. [address] [place] [address], [id number], [place]. tel:[phone] [facility], [address] [place] [address], [id number], tel:[phone] Dental Clinic PA (chief complaint) Body mass index [BMI] 28.0-28.9, adultEncounter for screening for dental disorders Aaron S Butch. [address] [place] [address], [id number], [place]. tel:[phone] [facility], [address] [place] [address], [id number], tel:[phone] Dental Clinic fill (chief complaint) Encounter for screening for dental disorders Ngozi S Jo. . tel:[phone] [facility], [address] [place] [address], [id number], [place] tel:[phone] Dental Clinic fill (chief complaint) Encounter for screening for dental disorders Ngozi Osorio. . tel: [phone] [facility], [address] [place] [address], [id number], [place] tel:[phone] Dental Clinic fill (chief complaint) Encounter for screening for dental disorders Ngozi Osorio. . tel: [phone] [facility], [address] [place] [address], [id number], [place] tel:[phone] Dental Clinic DN (chief complaint) Encounter for screening for dental disorders Ngozi Osorio. . tel: [phone] Family History Family Member Type Diagnosis Age [...]
--- OUTSIDE RECORDS SUMMARY | 2024-04-25 09:30 | XMS_ITS ---
Author Organization [facility] Address [address] [place] [address] Care Team Providers Care Csr Retail Name Role Phone Jennifer Hahn Primary Care Provider [phone] Julieta Sher [phone] REASON FOR VISIT 3 month f/u Encounters Encounter Location Date Provider Diagnosis [facility] [address] [place] [address] 04/25/2024 Julieta Jefferson Plan Of Treatment No Information Progress Notes * GUZMAN DEL CIDDOB: 5 (29 yo F)Acc No.[id number]:04/25/2024 Behavioral Health Patient: GUZMAN AMES Appointment Provider: Adin Jefferson :1995 A ge:29 Y S ex:Female Date:04/25/2024 Address:[address], [id number] Pcp:Jennifer Hahn Subjective: * Chief Complaints: * 1 . 3 month f/u. * Medical History: Objective: * Vitals: Assessment: Plan: * Treatment: * Images: * Electronic signature of NELIDA Newell FNP on 01/11/2025 at 02:46 PM EDT Sign off status: Pending * Appointment Provider: Adin Jefferson Date: 0 04/25/2024 Generated for Printi ng/Faxing/eTransmitting on: 0 01/11/2025 02:46 PM EDT
--- OUTSIDE RECORDS SUMMARY | 2024-07-25 06:30 | XMS_ITS ---
Author Organization [facility] Address [address] [place] [address] Care Team Providers Care Shrinker Name Role Phone Jennifer Hahn Primary Care Provider [phone] Julieta Sher [phone] REASON FOR VISIT 3 month f/u Encounters Encounter Location Date Provider Diagnosis [facility] [address] [place] [address] 07/25/2024 Julieta Jefferson Plan Of Treatment No Information Progress Notes * GUZMAN DEL CIDDOB: 5 (29 yo F)Acc No.[id number]:07/25/2024 Behavioral Health Patient: GUZMAN AMES Appointment Provider: Adin Jefferson :1995 A ge:29 Y S ex:Female Date:07/25/2024 Address:[address], [id number] Pcp:Jennifer Hahn Subjective: * Chief Complaints: * 1 . 3 month f/u. * Medical History: Objective: * Vitals: Assessment: Plan: * Treatment: * Images: * Electronic signature of NELIDA Newell FNP on 01/11/2025 at 02:45 PM EDT Sign off status: Pending * Appointment Provider: Adin Jefferson Date: 0 07/25/2024 Generated for Printi ng/Faxing/eTransmitting on: 0 01/11/2025 02:45 PM EDT
--- OUTSIDE RECORDS SUMMARY | 2025-01-11 14:47 | XMS_ITS | Encounter Summary ---
Author Organization [facility] Address [address] [place] [address] Care Team Providers Care Media Operator Name Role Phone JovaniAmanda lundy [place] ROCKET ENGINE TESTER Primary Care Provider Encounter Details Date Type Department Care Team (Late st Contact Info) Description 03/02/2024 Orders Only [facility] [address] [place] [address] Esperanza AsifAvoca, [place] [address] [place] [address] Social History Tobacco Use Types Packs/Day Years [...] 11:20 AM EDT Routine [facility] [address] [facility] [place] [address] Mima Duenas, TY [address] [place] [address] 02/20/2025 1:00 PM EST Office Visit [facility] HERNAN[facility] [address] [facility] [place] [phone] Les Martinez DO [address] [facility] [place] [address] 08/21/2025 9:30 AM EDT Office Visit [facility] [address] [place] [address] Darleen Sinclair MD [address] [place] [address] documented as of this encounter Procedures [...] on filedocumented in this encounter Care Teams Media Operator Relationship Specialty Start Date End Date Amanda Ford NP [address] [facility] [place] [address] PCP - General Family Medicine 01/17/23 documented as of this encounter
--- OUTSIDE RECORDS SUMMARY | 2025-01-11 14:47 | XMS_ITS | Encounter Summary ---
Author Organization [facility] Address [address] [place] [address] Care Team Providers Care Motor Vehicle Parts Interpreter Name Role Phone Amanda Ford APARTMENT GROUNDSKEEPER Primary Care Provider Encounter Details Date Type Department Care Team (Late st Contact Info) Description 10/22/2024 Abstract [facility] [address] [place] [address] Kerrie Babcock MA Social History Tobacco [...] EDT Routine [facility] [address] [place] [address] Mima Duenas, TY [address] [place] [address] 02/20/2025 1:00 PM EST Office Visit [facility] [address] [phone] Les Martinez DO [address] [place] [address] 08/21/2025 9:30 AM EDT Office Visit [facility] [place] [facility] [address] [place] [address] Darleen Sinclair MD [address] [place] [address] documented as of this encounter Goals Goal Patient Goal Type Associated Problems Recent Progress Patient-Stated? Author Reminders Care Plan OB Reminders No Open Scheduling, Background documented as of this encounter Visit Diagnoses Not on filedocumented in this encounter Additional Health Concerns Active Problems Noted Date Diagnosed Date OB Reminders 10/22/2024 documented as of this encounter Care Teams Motor Vehicle Parts Interpreter Relationship Specialty Start Date End Date Amanda Ford NP [address] [facility] [place] [address] PCP - General Family Medicine 01/17/23 documented as of this encounter
--- OUTSIDE RECORDS SUMMARY | 2025-01-11 14:47 | XMS_ITS | Encounter Summary ---
Author Organization [email or web address] Address [id number] [address] [place] [address] Care Team Providers Care Manager Of Sustainability Name Role Phone No Pcp, No Pcp Primary Care Provider Unavailabl e Encounter Details Date Type Department Care Team (Late st Contact Info) Description 01/03/2025 Telephone Maternal Medicine [place] [address] [facility] [address] [place] [address] Roslyn Griffin RN Social History [...] 02/07/2025 9:45 AM EDT Appointment Maternal Medicine [place] [address] [facility] [address] [place] [address] documented as of this encounter Visit Diagnoses Not on filedocumented in this encounter Care Teams Manager Of Sustainability Relationship Specialty Start Date End Date No Pcp, No Pcp [place] [address] PCP - General Family Medicine 05/20/20 documented as of this encounter
--- OUTSIDE RECORDS SUMMARY | 2025-01-11 14:47 | XMS_ITS | Patient Health Record ---
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) Active confirmed Problem Anxiety state (091180354) Anxiety state, unspecified (F41.1) Active confirmed Problem Long-term current use of drug therapy (846126836) High risk medications (not anticoagulants) long-term use (Z79.899) Active confirmed Problem Bipolar affective disorder, currently manic, mild (265460909) Bipolar disorder, current episode manic without psychotic features, mild (F31.11) Active confirmed Vital Signs Heart Rate 84 /min 10/24/2024 Oximetry 98 % 10/24/2024 Blood pressure diastolic 68 mm Hg 10/24/2024 Height 71 in 10/24/2024 Blood pressure systolic 124 mm Hg 10/24/2024 Weight 218.2 lbs 10/24/2024 BMI 30.43 kg/m2 10/24/2024 Encounters Encounter Location Date Provider Diagnosis [facility] [address] [place] [address] 01/25/2024 [place] [address] [place] [address] 02/24/2024 [place] [address] [place] [address] 05/10/2024 [facility] Bipolar disorder, current episode manic without psychotic features, mild F31.11 and Anxiety state, unspecified F41.1 [facility] [address] [place] [address] 05/24/2024 [facility] Bipolar disorder, current episode manic without psychotic features, mild F31.11 [facility] [address] [place] [address] 01/07/2025 Julieta Jefferson Bipolar disorder, current episode manic without psychotic features, mild F31.11 [facility] [address] [place] [address] 01/25/2024 Julieta Jefferson Bipolar disorder, current episode manic without psychotic features, mild F31.11 [facility] [address] [place] [address] 04/25/2024 Julieta Jefferson Bipolar disorder, current episode manic without psychotic features, mild F31.11 and Anxiety state, unspecified F41.1 [facility] [address] [place] [address] 08/24/2024 Jennifer [facility] Bipolar disorder, current episode manic without psychotic features, mild F31.11 and Anxiety state, unspecified F41.1 [facility] [address] [place] [address] 09/25/2024 Jennifer Hahn Bipolar disorder, current episode manic without psychotic features, mild F31.11 [facility] [address] [place] [address] 10/24/2024 Jennifer Hahn Bipolar disorder, current episode [...] increasing protein as appropriate. Discussed referral to able bodied seaman if problem persists. . . Continue current [...] - F31.11) cont current treatment transfer to [facility] . . Informed consent obtained: YES, we discussed the diagnosis/diagnoses , the treatment options, treatment(s) recommended vs. no treatment. We discussed risks and benefits of treatment options, treatment recommendations vs. no treatment. . . Discussed lifestyle/diet changes to help improve BMI. Recommend increasing activity, reducing portion sizes, limiting carbohydrates, increasing protein as appropriate. Discussed referral to able bodied seaman if problem persists. . . Second generation [...] Insured Coverage Start Date Coverage End Date [facility] [address] [place] [address] [id number] GUZMAN DEL CID Self - patient is the insured 3 [facility] [address] [place] [address] [id number] GUZMAN DEL CID Self - patient is the insured 3 [facility] [address] [place] [address] [id number] GUZMAN DEL CID Self - patient is the insured 1 2 [employer]termed 22 [address] [place] [address] [id number] GUZMAN DEL CID Self - patient is the insured 1 3 [facility] MEDICAID [facility] after [employer]termed 22 [address] [place] [address] [id number] GUZMAN DEL CID Self - patient is the insured 1 3 Medical (General) History Medical History History ICD Code obesity bipolar hypothyroid Surgical History Surgery Date(Month/Year) cholecystectomy gastric SLEEVE 04/2020
--- OUTSIDE RECORDS SUMMARY | 2025-01-11 14:47 | XMS_ITS | Encounter Summary ---
Author Organization [facility] Address [address] [place] [address] Care Team Providers Care Cotton Presser Name Role Phone Amanda Ford ELECTRICAL REPAIRER Primary Care Provider Encounter Details Date Type Department Care Team (Late st Contact Info) Description 01/11/2025 Telephone [facility] [address] [facility] [place] [address] Les Martinez DO [address] [place], [facility] Social History Tobacco Use Types Packs/Day [...] Telephone Encounter - Lilibeth Green LPN - 01/11/2025 9:52 AM EDT Patient called the office and she states she has not been feeling movement as much the past few days as she has in last month and wanted to know if she should come into office or go to [facility]. Patient was directed to [facility] and they were called and made aware episode sent. documented in this encounter Plan of Treatment Upcoming Encounters Date Type Department Care Team (Late st Contact Info) Description 01/16/2025 11:20 AM EDT Routine [facility] HERNANDEZ [address] [facility] [place] [phone] Mima Duenas NP [address] [facility] [place] [address] 02/20/2025 1:00 PM EST Office Visit [facility] HERNAN[facility]Z [address] [facility] [place] [address] Les Martinez DO [address] [facility] [address] [place], [place] [id number] 08/21/2025 9:30 AM EDT Office Visit [facility] [address] [place] [address] Darleen Sinclair MD [address] [place] [address] documented as of this encounter Goals Goal Patient Goal Type Associated Problems Recent Progress Patient-Stated? Author Reminders Care Plan OB Reminders No Open Scheduling, Background documented as of this encounter Visit Diagnoses Not on filedocumented in this encounter Additional Health Concerns Active Problems Noted Date Diagnosed Date OB Reminders 10/22/2024 documented as of this encounter Care Teams Cotton Presser Relationship Specialty Start Date End Date Amanda Ford NP [address] [facility] [place] [id number] PCP - General Family Medicine 01/17/23 documented as of this encounter
--- OUTSIDE RECORDS SUMMARY | 2025-01-11 14:47 | XMS_ITS | Encounter Summary ---
Author Organization [facility] Address [address] [place] [address] Care Team Providers Care Cupola Melter Name Role Phone Unavailable Primary Care Provider Unavailabl e Source Comments In the event this information is protected by the Federal Confidentiality of Alcohol and Drug AbusePatient Records regulations: The Federal rules restrict any use of the information to criminally investigate or prosecute any alcohol or drug abuse patient.[facility] Encounter Details Date Type Department Care Team (Late st Contact Info) Description 05/15/2024 Get Medical Advice Reproductive Endocrinology Infertility [address] [place] [address] Shelly Hrenandez APRN.MEDICAL PHYSIOLOGIST [address] [place] [address] [employer] order Social History Tobacco Use Types Packs/Day Years Used Date Smoking Tobacco: Never Assessed Area Deprivation Index Answer Date Claudio rded National Score (1-100), lower number is lower ri sk 82 02/28/2024 State Score (1-10), lower number is lower risk 7 02/28/2024 Data from: https://www.neighborhoodatlas.medicine.[facility].edu/. Last address used for calculation [...]
--- OUTSIDE RECORDS SUMMARY | 2025-01-11 14:47 | XMS_ITS | Clinical Summary ---
Author Organization [facility] Address [address] [place] [address] Care Team Providers Care Dry Janitor Name Role Phone Unavailable Primary Care Provider [...] is lower risk 7 02/28/2024 Data from: https://www.neighborhoodatlas.medicine.[facility].edu/. Last address used for calculation 344 [...] (Ag/Ab) Nonreactive Nonreactive 04/03/2024 12:27 PM EST [facility] HIV-1/2 AB (Confirmatory) 04/03/2024 12:27 PM EST [facility] Comment:Test not indicated. HIV Interpretation 04/03/2024 12:27 PM EST [facility] Comment: No evidence of HIV-1 or HIV-2 infection. Should recent infection be suspected, repeat testing may be considered 2-3 weeks after this draw. [facility] Rev. Code 3701.243(E): This information has been [...] EST 04/02/2024 3:22 PM EST Shelly Hernandez FEEDER ASSOCIATE.BIOFUELS ENGINEERING MANAGER LABORATORY Final Result Performing Organization Address City/[facility]/ZIP Co de Phone Number [facility] [address] * HEPATITIS C ANTIBODY IA WITH CONFIRMATION (04/02/2024 3:21 PM EST) Hep C Antibody IA Negative Negative 04/03/2024 11:20 AM EST [facility] Comment:The result suggests no evidence of active infection with Hepatitis C virus. Should recent infection be suspected, repeat testing may be considered 4-6 weeks after this draw. Blood BLOOD SPECIMEN / Unknown Venipuncture / Unknown 04/02/2024 3:21 PM EST 04/02/2024 3:22 PM EST Shelly Hernandez APRN.BIOFUELS ENGINEERING MANAGER LABORATORY Final Result Performing Organization Address City/[facility]/ZIP Co de Phone Number [facility] [address] from Last 3 Months or Most Recently Relevant to Health Maintenance Insurance [employer] BC[employer] MEDICA[place]
--- OUTSIDE RECORDS SUMMARY | 2025-01-11 14:47 | XMS_ITS | Encounter Summary ---
Author Organization [facility] Address [address] [place] [address] Care Team Providers Care Fiberglass Fabricator Name Role Phone Amanda Ford BRUSH FABRICATION SUPERVISOR Primary Care Provider Encounter Details Date Type Department Care Team (Late Contact Info) Description 05/04/2023 Abstract [facility] HERNAN[facility] [address] [place] [address] Lilibeth Green LPN [address] [place] [address] Social History Tobacco Use Types Packs/Day Years [...] 11:20 AM EDT Routine [facility] HERNANDEZ [address] [place] [address] Mima Duenas, BRUSH FABRICATION SUPERVISOR [address] [place] [address] 02/20/2025 1:00 PM EST Office Visit [facility]NA[facility] [address] [facility] [place] [place] [address] Les Martinez DO [address] [facility] [place] [address] 08/21/2025 9:30 AM EDT Office Visit [facility] [address] [place] [address] Darleen Sinclair MD [address] [place] [address] documented as of this encounter Visit Diagnoses Not on filedocumented in this encounter Care Teams Fiberglass Fabricator Relationship Specialty Start Date End Date Amanda oFrd NP [address] [place] [address] [place] [address] PCP - General Family Medicine 01/17/23 documented as of this encounter
--- OUTSIDE RECORDS SUMMARY | 2025-01-11 14:47 | XMS_ITS | Clinical Summary ---
Author Organization [facility] Address [address] [place] [address] Phone Care Team Providers Care Mobility Specialist Name Role Phone Unavailable Primary Care Provider [...] patient's age to complete this topic Insurance [facility] MEDICAID
--- OUTSIDE RECORDS SUMMARY | 2025-01-11 14:47 | XMS_ITS | Encounter Summary ---
Author Organization [facility] Address [address], [address] [place] [address] Care Team Providers Care Rigger Helper Name Role Phone Robin Marquez MD Primary Care Provider [phone] Reason for Visit * Reason Comments Medication Refill Encounter Details Date Type Department Care Team (Late st Contact Info) Description 03/22/2019 Refill [facility] [address] [place] [address] [place] [address] Christina Arreguin, AIR MOVING TECHNICIAN - RESIDENT SERVICES SUPERVISOR Medication Refill Social History Tobacco Use Types [...] documented as of this encounter Care Teams Rigger Helper Relationship Specialty Start Date End Date Robin Marquez MD [address] [place] [address] PCP - General Family Medicine 10/10/18 documented as of this encounter
--- OUTSIDE RECORDS SUMMARY | 2025-01-11 14:47 | XMS_ITS | Encounter Summary ---
Author Organization [facility] Address [address] [place] [address] Care Team Providers Care Resilient Tile Installer Name Role Phone Logan Amanda Nikole MANGLE FEEDER Primary Care Provider Encounter Details Date Type Department Care Team (Late Contact Info) Description 01/07/2025 Abstract [facility] HERNANDEZ [address] [place] [address] Les Martinez DO [address] [facility] [address] [place], [place] [address] Social History Tobacco Use Types Packs/Day Years [...] 11:20 AM EDT Routine N[facility] HERNANDEZ [address] [place] [address] Mima Duenas NP [address] [facility] [place] [address] 02/20/2025 1:00 PM EST Office Visit [facility] [address] [facility] [place] [address] Les Martinez DO [address] [facility] [address] [place] [place], [place] [phone] 08/21/2025 9:30 AM EDT Office Visit [facility] [place] [facility] [address] [place] [address] Darleen Sinclair MD [address] [place] [address] documented as of this encounter Goals Goal Patient Goal Type Associated Problems Recent Progress Patient-Stated? Author Reminders Care Plan OB Reminders No Open Scheduling, Background documented as of this encounter Visit Diagnoses Not on filedocumented in this encounter Additional Health Concerns Active Problems Noted Date Diagnosed Date OB Reminders 10/22/2024 documented as of this encounter Care Teams Resilient Tile Installer Relationship Specialty Start Date End Date Amanda Ford NP [address] [facility] [address] [place], [place] [phone] PCP - General Family Medicine 01/17/23 documented as of this encounter
--- OUTSIDE RECORDS SUMMARY | 2025-01-11 14:47 | XMS_ITS | Encounter Summary ---
Author Organization [facility] Address [address] [place] [address] Care Team Providers Care Regional Flatbed Truck Driver Name Role Phone Amanda Ford STONEMASON Primary Care Provider Encounter Details Date Type Department Care Team (Late st Contact Info) Description 01/09/2025 Clinisync Result Encounter NOMS External Department Unsolicited Jojo Ames PA [address] [facility] [place] [address] Social History Tobacco Use Types Packs/Day Years [...] AM EDT Routine [facility] [address] [facility] [place] [address] Mima Duenas, STONEMASON [address] [facility] [place] [address] 02/20/2025 1:00 PM EST Office Visit [facility] [place] [facility] [address] [facility] [place] [address] Les Martinez, [address] [facility] [address] [place], [place] [phone] 08/21/2025 9:30 AM EDT Office Visit [facility] [place] [facility] [address] [place] [address] Darleen Sinclair MD [address] [place] [address] documented as of this encounter Goals Goal Patient Goal Type Associated Problems Recent Progress Patient-Stated? Author Reminders Care Plan OB Reminders No Open Scheduling, Background documented as of this encounter Procedures Procedure Name Priority Date/Time Associated Diagnosis Comments GLUCOSE 1 HOUR Routine 01/09/2025 12:00 PM EDT ALL CBC WITH AUTO DIFF Routine 01/09/2025 12:00 PM EDT documented in this encounter Results * GLUCOSE 1 HOUR (01/09/2025 12:00 PM EDT) Pathologist [facility] GLUCOSE 1 HOUR 118 <130 mg/dL TB 01/09/2025 12:0 0 PM EDT 01/09/2025 12:02 PM EDT Narrative CLINISYNC - 01/09/2025 12:55 PM EDT Jojo OGDEN LAB BLOOD ORDERABLES Final Resul t [facility]FORM[facility]LY [facility] * (ABNORMAL) ALL CBC WITH AUTO DIFF (01/09/2025 12:00 PM EDT) Pathologist [facility] WBC 11.8(H) 4.0 - 11.0 10 3/uL TBH TBH RBC 4.06(L) 4.20 - 5.40 10 6/uL TBH TBH HGB 12.0 12.0 - 16.0 g/dL TBH TBH HCT 35.6(L) 36.0 - 48.0 % TBH TBH MCV 87.7 81.0 - 99.0 fL TBH TBH MCH 29.6 26.7 - 34.0 pg TBH TBH MCHC 33.7 29.9 - 35.2 g/dL TBH TBH RDW 13.2 11.0 - 15.0 % TBH TBH PLT 187 150 - 450 10 3/uL TBH TBH MPV 8.7(L) 9.5 - 13.5 fL TBH NEUTROPHILS PERCENT AUTO 71.8 43.0 - 75.0 % TBH LYMPHOCYTES PERCENT AUTO 19.7(L) 20.5 - 60.0 % TBH MONOCYTES PERCENT AUTO 6.2 1.7 - 12.0 % TBH TBH EO % 1.2 0.9 - 7.0 % TBH BASOPHILS PERCENT AUTO 0.3 0.2 - 2.0 % TBH IMMATURE GRANULOCYTES PCT AUTO 0.8(H) 0.0 - 0.5 % TBH NEUTROPHILS ABSOLUTE AUTO 8.5(H) 1.4 - 6.5 10 3/uL TBH LYMPHOCYTES ABSOLUTE AUTO 2.3 1.2 - 3.8 10 3/uL TBH MONOCYTES ABSOLUTE AUTO 0.7 0.3 - 0.8 10 3/uL TBH TBH EO # 0.1 0.0 - 0.7 10 3/uL TBH BASOPHILS ABSOLUTE AUTO 0.0 0.0 - 0.1 10 3/uL TBH IMMATURE GRANULOCYTES ABS AUTO 0.10(H) 0.00 - 0.03 10 3/uL TBH 01/09/2025 12:0 0 PM EDT 01/09/2025 12:02 PM EDT Narrative CLINISYNC - 01/09/2025 12:31 PM EDT us Jojo OGDEN CLINISYNC Final Result CLINISYNC TB documented in this encounter Visit Diagnoses Not on filedocumented in this encounter Additional Health Concerns Active Problems Noted Date Diagnosed Date OB Reminders 10/22/2024 documented as of this encounter Care Teams Regional Flatbed Truck Driver Relationship Specialty Start Date End Date Amanda Ford NP [address] [place], [place] [phone] PCP - General Family Medicine 01/17/23 documented as of this encounter
--- OUTSIDE RECORDS SUMMARY | 2025-01-11 14:47 | XMS_ITS | Encounter Summary ---
Author Organization [employer] tem Address [id number] [address] [place] [address] Care Team Providers Care Flash Developer Name Role Phone No Pcp, No Pcp Primary Care Provider Unavailabl e Reason for Referral * Diagnostic Imaging (Routine) - Pending Review Specialty Diagnoses / Procedures Referred By Saud tavera Referred To Contact Maternal and Medicine Diagnoses Previous gastric bypass affecting , antepartum Hypothyroidism affecting in second trimester 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 ([facility]) Obesity affecting in second trimester, unspecified obesity type Procedures [facility] with or without consult aLtricia Garcia MD [address] [address] Phone: tel: fax: Maternal- Medicine at [facility] [address] [place] [address] Phone: tel: fax: Referral ID Status Reason Start Date Expiration Date V isits Requested Visits Authorized [id number] Pending Review 01/04/2025 01/04/2026 1 1 Encounter Details Date Type Department Care Team (Late st Contact Info) Description 01/04/2025 Orders Only Maternal- Medicine at [facility] [address] [place] [address] Krystyna Dick RN Previous gastric bypass affecting , antepartum (Primary Dx); Hypothyroidism affecting in second trimester; 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 ([facility]); Obesity affecting in second trimester, unspecified obesity [...] 02/07/2025 9:45 AM EDT Appointment Maternal Medicine [place] [address] [facility] [address] [place] [address] Scheduled Orders Name Type Priority Associated Diagnoses Orde r Schedule US MFM with or without consult Imaging Routine Previous gastric bypass affecting , antepartum Hypothyroidism affecting in second trimester 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 ([facility]) Obesity affecting in second trimester, unspecified obesity type Expected: 02/03/2025 (Approximate), Expires: 01/04/2026 documented as of this encounter Visit Diagnoses Diagnosis Previous gastric bypass affecting , antepartum- Primary Hypothyroidism affecting in second trimester 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 ([facility]) Obesity affecting in second trimester, unspecified obesity type documented in this encounter Care Teams Flash Developer Relationship Specialty Start Date End Date [place] [address] PCP - General Family Medicine 05/20/20 documented as of this encounter
--- OUTSIDE RECORDS SUMMARY | 2025-01-11 14:47 | XMS_ITS | Encounter Summary ---
Author Organization [facility] Address [address] [place] [address] Care Team Providers Care Jewelry Mechanic Name Role Phone Unavailable Primary Care Provider Unavailabl e Source Comments In the event this information is protected by the Federal Confidentiality of Alcohol and Drug AbusePatient Records regulations: The Federal rules restrict any use of the information to criminally investigate or prosecute any alcohol or drug abuse patient.[facility] Encounter Details Date Type Department Care Team (Late st Contact Info) Description 09/03/2024 Patient Msg Reproductive Endocrinology Infertility [address] [facility] [place] [place] [address] Manisha Powell APRN.NETWORK CABLER [address] [facility] [place] [address] Congratulations!!! Social History Tobacco Use Types Packs/Day Years Used Date Smoking Tobacco: Never Assessed Area Deprivation Index Answer Date Claudio rded National Score (1-100), lower number is lower ri sk 82 02/28/2024 State Score (1-10), lower number is lower risk 7 02/28/2024 Data from: https://www.neighborhoodatlas.medicine.[facility].edu/. Last address used for calculation [address] [...]
--- OUTSIDE RECORDS SUMMARY | 2025-01-11 14:47 | XMS_ITS | Encounter Summary ---
Author Organization [facility] Address [address] [place] [address] Care Team Providers Care Algologist Name Role Phone Mariam Fordfer Nikole SEM MANAGER Primary Care Provider Encounter Details Date Type Department Care Team (Late Contact Info) Description 12/05/2024 External Result Encounter [facility] [address] [place] [phone] Basim Martinez DO [address] [place], [place] [id number] Social History Tobacco Use Types Packs/Day Years [...] 11:20 AM EDT Routine [facility] [address] [place] [phone] Mima Duenas, TY [address] [facility] [place] [address] 02/20/2025 1:00 PM EST Office Visit [facility] [place] [facility] [address] [facility] [place] [address] Basim Martinez, [address] [facility] [address] [place], [place] [id number] 08/21/2025 9:30 AM EDT Office Visit [facility] [address] [place] [phone] Darleen Sinclair MD [address] [place] [address] documented as of this encounter [...] PM EDT THIS EXAM WAS PERFORMED AT [facility] NAME: MARIA EUGENIA HINDS : 1995 SEX: F Accession Number: [id number] ORDERING PHYSICIAN: ENRIKE LINDQUIST REFERRING PHYSICIAN: BASIM MARTINEZ Coding ----- --------- Procedures [id number]: Ultrasound, uterus, real time with image documentation, and maternal evaluation plus detailed anatomic examination, transabdominal approach;single or first gestation [id number]: Transvaginal Ultrasound (OB) Indication ----- --------- Screening for Anatomic Survey, Screening for cervical length, resulting from assisted reproductive technology- IUI, History of Gastric sleeve, Obesity in . History ----- --------- OB History 1. Para 0 [id number] Current ----- --------- Cell free DNA low [...] EFW (oz) 14 oz EFW by: Hadlock ([id number]) Extended Tibia 27.0 mm 19w 5d 43% [employer] Dispatcher 8.2 mm CM 4.2 mm 24% Nicolaides [...] Thorax RVOT view. LVOT view. 3-vessel view. 7-qarsef-ibrlkqo view. Bicaval view. Ductal arch view. Great [...] 5.2 cm. Recommendations ----- --------- Please see [facility] documentation from today. The patient is scheduled in four to six week(s) to complete anatomic survey. Subsequent follow up or other follow up as clinically determined by primary OB provider unless otherwise specified by [facility]. Results forwarded to ordering provider so they can follow up with the patient as necessary. The copy-to physician of this order is BASIM Herring The ordering physician of this order is ENRIKE Alfaro Procedure Note Radiology, Radiologist, - 12/05/2024 THIS EXAM WAS PERFORMED AT [facility] NAME: MARIA EUGENIA HINDS : 1995 SEX: F Accession Number: [id number] ORDERING PHYSICIAN: ENRIKE LINDQUIST REFERRING PHYSICIAN: BASIM MARTINEZ Coding ----- --------- Procedures [id number]: Ultrasound, uterus, real time with imagedocumentation, and maternal evaluation plus detailed anatomic examination, transabdominalapproach;single or first gestation 45566: Transvaginal Ultrasound (OB) Indication ----- --------- Screening for Anatomic Survey, Screening for cervical length, Pregnancyresulting from assisted reproductive technology- IUI, History of Gastric sleeve, Obesity in . History ----- --------- OB History 1. Para 0 [id number] Current ----- --------- Cell free DNA low [...] EFW (oz) 14 oz EFW by: Hadlock ([id number]) Extended Tibia 27.0 mm 19w 5d 43% [employer] Dispatcher 8.2 mm CM 4.2 mm 24% Nicolaides [...] Thorax RVOT view. LVOT view. 3-vessel view. 2-tdfsdk-bdeketi view.Bicaval view. Ductal arch view. Great vessels. [...] documented as of this encounter Care Teams Algologist Relationship Specialty Start Date End Date Amanda Ford NP [facility] [place] [address] PCP - General Family Medicine 01/17/23 documented as of this encounter
--- OUTSIDE RECORDS SUMMARY | 2025-01-11 14:47 | XMS_ITS | Encounter Summary ---
Author Organization [facility] Address [address] [place] [address] Care Team Providers Care Cable Systems Installer Name Role Phone Amanda Ford FIRMWARE ARCHITECT Primary Care Provider Encounter Details Date Type Department Care Team (Late st Contact Info) Description 01/08/2025 Telephone [facility] [address] [facility] [place] [address] Jojo Ames PA [address] [place], [facility] Social History Tobacco Use Types Packs/Day [...] 11:20 AM EDT Routine [facility] [address] [facility] [place] [phone] Mima Duenas, TY [address] [facility] [place] [address] 02/20/2025 1:00 PM EST Office Visit [facility]IA HERNANDEZ [address] [facility] [place] [address] Les Martinez DO [address] [facility] [place] [address] 08/21/2025 9:30 AM EDT Office Visit [facility] Endocrinology [address] [place] [address] Darleen Sinclair MD [address] [place] [address] documented as of this encounter Goals Goal Patient Goal Type Associated Problems Recent Progress Patient-Stated? Author Reminders Care Plan OB Reminders No Open Scheduling, Background documented as of this encounter Visit Diagnoses Not on filedocumented in this encounter Additional Health Concerns Active Problems Noted Date Diagnosed Date OB Reminders 10/22/2024 documented as of this encounter Care Teams Cable Systems Installer Relationship Specialty Start Date End Date Amanda Ford NP [address] [facility] [place] [address] PCP - General Family Medicine 01/17/23 documented as of this encounter
--- OUTSIDE RECORDS SUMMARY | 2025-01-11 14:47 | XMS_ITS | Encounter Summary ---
Author Organization [facility] Address [address] [facility], [address] [place] [address] Care Team Providers Care Green Marketing Specialist Name Role Phone Robin Marquez MD Primary Care Provider [phone] Reason for Visit * Reason Comments Medication Refill Encounter Details Date Type Department Care Team (Late st Contact Info) Description 03/08/2019 Refill [facility] [address] [place] [address] [place] [phone] Christina Arreguin, SENIOR BENEFITS SPECIALIST - US CUSTOMS AND BORDER OFFICER Medication Refill Social History Tobacco Use Types [...] documented as of this encounter Care Teams Green Marketing Specialist Relationship Specialty Start Date End Date Robin Marquez MD [address] [place] [address] PCP - General Family Medicine 10/10/18 documented as of this encounter
--- OUTSIDE RECORDS SUMMARY | 2025-01-11 14:47 | XMS_ITS | Encounter Summary ---
Author Organization [facility] Address [address] [place] [address] Care Team Providers Care Buggyman Name Role Phone Amanda Ford NAILER MACHINE Primary Care Provider Encounter Details Date Type Department Care Team (Late st Contact Info) Description 10/22/2024 Abstract [facility] [address] [place] [address] Kerrie Babcock MA Social History Tobacco [...] EDT Routine [facility] [address] [place] [address] Mima Duenas, TY [address] [place] [address] 02/20/2025 1:00 PM EST Office Visit [facility] [address] [place] [phone] Les Martinez DO [address] [place] [address] 08/21/2025 9:30 AM EDT Office Visit [facility] [place] [facility] [address] [place] [address] Darleen Sinclair MD [address], [address] [place] [address] documented as of this encounter Goals Goal Patient Goal Type Associated Problems Recent Progress Patient-Stated? Author Reminders Care Plan OB Reminders No Open Scheduling, Background documented as of this encounter Visit Diagnoses Not on filedocumented in this encounter Additional Health Concerns Active Problems Noted Date Diagnosed Date OB Reminders 10/22/2024 documented as of this encounter Care Teams Buggyman Relationship Specialty Start Date End Date Amanda Ford NP [address] [facility] [place] [address] PCP - General Family Medicine 01/17/23 documented as of this encounter
--- OUTSIDE RECORDS SUMMARY | 2025-01-11 14:47 | XMS_ITS | Encounter Summary ---
Author Organization [facility] Address [address] [place] [address] Care Team Providers Care Certified Coatings Inspector Name Role Phone Logan Amanda Nikole AUTOMOTIVE PRODUCTION WORKER Primary Care Provider Encounter Details Date Type Department Care Team (Late Contact Info) Description 09/20/2024 Abstract [facility] [address] [place] [address] Les Martinez DO [address] [facility] [address] [place], [place] [address] Social History Tobacco Use Types Packs/Day Years [...] 11:20 AM EDT Routine [facility] HERNAN[facility] [address] [place] [address] Mima Duenas NP [address] [facility] [place] [address] 02/20/2025 1:00 PM EST Office Visit [facility] HERNAN[facility]Z [address] [facility] [place] [address] Les Martinez DO [address] [facility] [facility] [place], [place] [phone] 08/21/2025 9:30 AM EDT Office Visit [facility] [place] [facility] [address] [place] [phone] Darleen Sinclair MD [address], [address] [place] [address] documented as of this encounter Visit Diagnoses Not on filedocumented in this encounter Care Teams Certified Coatings Inspector Relationship Specialty Start Date End Date Amanda Ford NP [address] [facility] [address] [place] [phone] PCP - General Family Medicine 01/17/23 documented as of this encounter
--- OUTSIDE RECORDS SUMMARY | 2025-01-11 14:47 | XMS_ITS | Encounter Summary ---
Author Organization [facility] Address [address] [place] [address] Care Team Providers Care Bail Attacher Name Role Phone Unavailable Primary Care Provider Unavailabl e Source Comments In the event this information is protected by the Federal Confidentiality of Alcohol and Drug AbusePatient Records regulations: The Federal rules restrict any use of the information to criminally investigate or prosecute any alcohol or drug abuse patient.[facility] Encounter Details Date Type Department Care Team (Latest Contact Info) Description 05/09/2024 Patient Msg Reproductive Endocrinology Infertility [address] [place] [address] Shelly Hernandez APRN.SPEEDER FRAME TENDER [address] [place] [address] Summary of Next Steps Social History Tobacco Use Types Packs/Day Years Used Date Smoking Tobacco: Never Assessed Area Deprivation Index Answer Date Claudio rded National Score (1-100), lower number is lower ri sk 82 02/28/2024 State Score (1-10), lower number is lower risk 7 02/28/2024 Data from: https://www.neighborhoodatlas.medicine.[facility].edu/. Last address used for calculation [...]
--- OUTSIDE RECORDS SUMMARY | 2025-01-11 14:47 | XMS_ITS | Encounter Summary ---
Author Organization [facility] Address [address] [place] [address] Care Team Providers Care Soil Engineer Name Role Phone Logan Amanda Nikole FISCAL ANALYST Primary Care Provider Encounter Details Date Type Department Care Team (Late Contact Info) Description 10/17/2024 Abstract [facility] HER[facility] [address] [place] [address] Les Martinez DO [address] [facility] [address] [place], [place] [address] Social History Tobacco Use Types Packs/Day Years [...] 11:20 AM EDT Routine [facility] HERNANDEZ [address] [place] [address] Mima Duenas NP [address] [facility] [place] [address] 02/20/2025 1:00 PM EST Office Visit [facility] HERNAN[facility]Z [address] [facility] [place] [address] Les Martinez DO [address] [facility] [address] [place], [place] [phone] 08/21/2025 9:30 AM EDT Office Visit [facility] [place] [facility] [address] [place] [phone] Darleen Sinclair MD [address], [address] [place] [address] documented as of this encounter Visit Diagnoses Not on filedocumented in this encounter Care Teams Soil Engineer Relationship Specialty Start Date End Date Amanda Ford NP [address] [facility] [address] [place] [id number] PCP - General Family Medicine 01/17/23 documented as of this encounter
--- OUTSIDE RECORDS SUMMARY | 2025-01-11 14:47 | XMS_ITS | Encounter Summary ---
Author Organization [facility] tem Address [id number] [address] [place] [address] Care Team Providers Care Home Energy Inspector Name Role Phone No Pcp, No Pcp Primary Care Provider Unavailabl e Encounter Details Date Type Department Care Team (Late Contact Info) Description 12/04/2024 Orders Only Maternal- Medicine at [facility] [address] [place] [address] Ref Prov, [place] [address] Social History Tobacco Use Types Packs/Day Years [...] 02/07/2025 9:45 AM EDT Appointment Maternal Medicine [place] [address] [place] [address] documented as of this encounter [...] on filedocumented in this encounter Care Teams Home Energy Inspector Relationship Specialty Start Date End Date No Pcp, [place] [address] PCP - General Family Medicine 05/20/20 documented as of this encounter
--- OUTSIDE RECORDS SUMMARY | 2025-01-11 14:47 | XMS_ITS | Encounter Summary ---
Author Organization [facility] Address [address] [place] [address] Phone Care Team Providers Care Financial Sales Assistant Name Role Phone Unavailable Primary Care Provider Unavailabl e Encounter Details Date Type Department Care Team (Late st Contact Info) Description 05/02/2024 Scanned Document Yelena Castanon Pavilimanisha [address] [address] [place] [address] [address] Department of PROCEDURES TECH-[place] [address] Social History Tobacco Use Types Packs/Day Years [...]
--- OUTSIDE RECORDS SUMMARY | 2025-01-11 14:47 | XMS_ITS | Encounter Summary ---
Author Organization [facility] Address [id number] [address] [place] [address] Care Team Providers Care Occupational Health Nurse Name Role Phone No Pcp, No Pcp [...] 02/07/2025 9:45 AM EDT Appointment Maternal Medicine [place] [address] [place] [address] documented as of this encounter Visit Diagnoses Not on filedocumented in this encounter Care Teams Occupational Health Nurse Relationship Specialty Start Date End Date No Pcp, [place] [address] PCP - General Family Medicine 05/20/20 documented as of this encounter
--- OUTSIDE RECORDS SUMMARY | 2025-01-11 14:47 | XMS_ITS | Clinical Summary ---
Author Organization [facility] Address [address] [place] [address] Care Team Providers Care Strategic Planner Name Role Phone Amanda Ford SPLITTER OPERATOR Primary Care Provider Allergies Active Allergy [...] Encounters Date Type Department Care Team Description 01/11/2025 Telephone [facility] [address] [place] [address] Basim Martinez, DO 01/10/2025 Telephone [facility] [address] [place] [address] Jojo Ames PA 01/09/2025 Clinisync Result Encounter NOMS External Department Unsolicited Jojo Ames PA 01/08/2025 Telephone [facility] [address] [place] [address] Jojo Ames PA 01/07/2025 Abstract [facility] [address] [place] [address] Basim Martinez, DO 12/19/2024 10:00 AM EDT Routine [facility] [address] [place] [address] Jojo Ames PA 22 weeks gestation of ([facility]); Second trimester ([facility]); Thyroid disease ; H/O gastric sleeve; H/O iron deficiency anemia; Diabetes mellitus screening 12/19/2024 Bamboo flowsheet [facility] [address] [place] [address] Jojo Ames PA 12/15/2024 Clinisync Result Encounter NOMS External Department Unsolicited Basim Martinez, 12/12/2024 Travel 12/05/2024 External Result Encounter [facility] [address] [place] [address] Basim Martinez, DO 12/04/2024 8:30 AM EDT Ancillary Procedure [facility] [address] [place] [address] Screening, , for anatomic survey ([facility]) 12/02/2024 External Result Encounter NOMS External Department Unsolicited Eduardo Cruz, 11/30/2024 Telephone [facility] [address] [place] [address] Lisa Campbell LPN 11/20/2024 8:40 AM EDT Routine [facility] LLANES[facility] [address] [place] [address] Basim Martinez, Well woman exam with routine gynecological exam; Exposure to STD; Second trimester ([facility]); 18 weeks gestation of ([facility]); Need for maternal serum alpha-protein (MSAFP) screening ([facility]); Screening, , for anatomic survey ([facility]); Thyroid disease 11/20/2024 External Result Encounter NOMS External Department Unsolicited Basim Martinez, 11/20/2024 Clinisync Result Encounter NOMS External Department Unsolicited Basim Martinez, DO 11/20/2024 Bamboo flowsheet [facility] [address] [place] [address] Basim Martinez, 11/05/2024 [place] [address] Basim Martinez, Other iron deficiency anemia 10/22/2024 11:20 [place] [address] Basim Martinez, 13 weeks gestation of ([facility]); Second trimester ([facility]); Thyroid disease ; H/O gastric sleeve; H/O iron deficiency anemia; resulting from in vitro fertilization in first trimester ([facility]) 10/22/20[place] [address] Kerrie Babcock MA 10/22/2024 [place] [address] BabcockVeronica abdullahiOneida, MA 10/22/2024 Abstract [facility] [address] [address] Kerrie Babcock, [place] 10/21/2024 Travel 10/18/2024 Telephone [facility] [address] [address] Basim Martinez DO 10/17/2024 Abstract [facility] [address] [address] Basim Martinez DO from Last 3 Months [...] 11:20 AM EDT Routine [facility] [address] [address] Mima Duenas, SPLITTER OPERATOR [address] [place] [address] 02/20/2025 1:00 PM EST Office Visit [facility] [address] [place] [address] Basim Martinez DO [address] [place], [place] [phone] 08/21/2025 9:30 AM EDT Office Visit [facility] [address] [place] [address] Darleen Sinclair MD [address] [place] [address] Health Maintenance Due Date Last Done Comments Influenza Vaccine (#1) 2024 Goals Goal Patient Goal Type Associated Problems Recent Progress Patient-Stated? Author Reminders Care Plan OB Reminders No Open Scheduling, Background Procedures Procedure Name Priority Date/Time Associated Diagnosis Comments GLUCOSE 1 HOUR Routine 01/09/2025 12:00 PM EDT ALL CBC WITH AUTO DIFF Routine 01/09/2025 12:00 PM EDT POCT URINALYSIS DIPSTICK Routine 12/19/2024 10:11 AM EDT 22 weeks gestation of ([facility]) Second trimester ([facility]) [facility] URINE MICROSCOPIC ONLY Routine 12/15/2024 11:24 PM EDT [facility] UA (CLEAN/CATCH) EXPLOSIVES MIXER OPERATOR/MICRO IF IND. Routine 12/15/2024 11:24 PM EDT US OB 14+ WEEKS ANATOMY SCAN 12/05/2024 4:12 PM EDT US OB 14+ WEEKS ANATOMY SCAN Routine 12/04/2024 9:26 AM EDT Screening, , for anatomic survey ([facility]) URINALYSIS REFLEX STAT 12/02/2024 11: 40 PM EDT RECURRENT VAGINITIS (HTRX) Routine 11/20/2024 10:51 AM EDT AFP, SERUM, OPEN SPINA BIFIDA Routine 11/20/2024 10:37 AM EDT ALL THYROID STIM HORMONE Routine 11/20/2024 10:37 AM EDT POCT URINALYSIS DIPSTICK Routine 11/20/2024 9:12 AM EDT Second trimester ([facility]) POCT URINALYSIS DIPSTICK Routine 10/22/2024 11:41 AM EDT 13 weeks gestation of ([facility]) Second trimester ([facility]) from Last 3 Months Results * GLUCOSE 1 HOUR (01/09/2025 12:00 PM EDT) GLUCOSE 1 HOUR 118 <130 mg/dL [facility] 01/09/2025 12:0 0 PM EDT 01/09/2025 12:02 PM EDT Narrative [facility] - 01/09/2025 12:55 PM EDT Jojo OGDEN LAB BLOOD ORDERABLES Final Resul t [facility] * (ABNORMAL) ALL CBC WITH AUTO DIFF (01/09/2025 12:00 PM EDT) [facility] WBC 11.8(H) 4.0 - 11.0 10 3/uL [...] Narrative [facility]IN[facility] - 01/09/2025 12:31 PM EDT Jojo OGDEN CLINISYNC Final Result JEREMY TB * POCT urinalysis dipstick manually resulted (12/19/2024 [...] DO CLINISYNC Final Result Performing Organization Address City/[facility]/ZIP Co de Phone Number CLINIS[facility]NC [facility] * (ABNORMAL) [facility] UA (CLEAN/CATCH) EXPLOSIVES MIXER OPERATOR/MICRO IF IND. (12/15/2024 11:24 PM EDT) COLOR [...] PM EDT 12/15/2024 11:40 PM EDT Narrative PETER[facility] - 12/15/2024 11:50 PM EDT us Basim Martinez DO GREENISYIMER Final Result Performing Organization Address [facility]/ZIP Co de Phone Number CLINISYNC TB * US OB 14+ weeks anatomy scan (12/05/2024 4:12 PM EDT) Only the most recent of2 resultswithin the time period is included. Anatomical Region Laterality Modality Body Ultrasound 12/05/2024 4:12 PM EDT Narrative 12/05/2024 4:11 PM EDT THIS EXAM WAS PERFORMED AT [facility] NAME: MARIA EUGENIA HINDS : 1995 SEX: F Accession Number: [id number] ORDERING PHYSICIAN: ENRIKE LINDUQIST REFERRING PHYSICIAN: BASIM MARTINEZ Coding ----- --------- Procedures [id number]: Ultrasound, uterus, real time with image documentation, and maternal evaluation plus detailed anatomic examination, transabdominal approach;single or first gestation 99567: Transvaginal Ultrasound (OB) Indication ----- --------- Screening for Anatomic Survey, Screening for cervical length, resulting from assisted reproductive technology- IUI, History of Gastric sleeve, Obesity in . History ----- --------- OB History 1. Para 0 [id number] Current ----- --------- Cell free DNA low [...] EFW (oz) 14 oz EFW by: Hadlock (TOP-LS-TK-FL) Extended Tibia 27.0 mm 19w 5d 43% Gayle Cutting Room Supervisor 8.2 mm CM 4.2 mm 24% Nicolaides [...] Thorax RVOT view. LVOT view. 3-vessel view. 8-zgtybs-dfcisjy view. Bicaval view. Ductal arch view. Great [...] 5.2 cm. Recommendations ----- --------- Please see [facility] documentation from today. The patient is scheduled in four to six week(s) to complete anatomic survey. Subsequent follow up or other follow up as clinically determined by primary OB provider unless otherwise specified by [facility]. Results forwarded to ordering provider so they can follow up with the patient as necessary. The copy-to physician of this order is BASIM Herring The ordering physician of this order is ENRIKE Alfaro Procedure Note Radiology, Radiologist, - 12/05/2024 THIS EXAM WAS PERFORMED AT [facility] NAME: MARIA EUGENIA HINDS : 1995 SEX: F Accession Number: [id number] ORDERING PHYSICIAN: ENRIKE LINDQUIST REFERRING PHYSICIAN: BASIM MARTINEZ Coding ----- --------- Procedures [id number]: Ultrasound, uterus, real time with imagedocumentation, and maternal evaluation plus detailed anatomic examination, transabdominalapproach;single or first gestation 13082: Transvaginal Ultrasound (OB) Indication ----- --------- Screening for Anatomic Survey, Screening for cervical length, Pregnancyresulting from assisted reproductive technology- IUI, History of Gastric sleeve, Obesity in . History ----- --------- OB History 1. Para 0 [id number] Current ----- --------- Cell free DNA low [...] EFW (oz) 14 oz EFW by: Hadlock (OVS-GH-PV-FL) Extended Tibia 27.0 mm 19w 5d 43% Gayle Cutting Room Supervisor 8.2 mm CM 4.2 mm 24% Nicolaides [...] Thorax RVOT view. LVOT view. 3-vessel view. 2-teoano-ygarcfq view.Bicaval view. Ductal arch view. Great vessels. [...] 5.2 cm. Recommendations ----- --------- Please see [facility] documentation from today. The patient is [...] COLOR,URINE Light-Yellow Yellow 12/03/2024 12:00 AM EDT [facility] APPEARANCE,URI NE Clear Clear 12/03/2024 12:00 AM EDT [facility] SPECIFICY GRAVITY,URINE 1.017 1.001 - 1.030 12/03/2024 12:00 AM EDT [facility] PH,URINE 5.5 5.0 - 9.0 12/03/2024 12:00 AM EDT [facility] LEUKOCYTE ESTERASE,URINE Negative Negative 12/03/2024 12:00 AM EDT [facility] NITRITE,URINE Negative Negative 12/03/2024 12:00 AM EDT [facility] PROTEIN,URINE Negative Negative mg/dL 12/03/2024 12:00 AM EDT [facility] GLUCOSE,URINE (UA) Normal Normal mg/dL 12/03/2024 12:00 AM EDT [facility] KETONES,URINE Negative Negative 12/03/2024 12:00 AM EDT [facility] UROBILINOGEN,U RINE Normal Normal mg/dL 12/03/2024 12:00 AM EDT [facility] BILIRUBIN,URIN E Negative Negative 12/03/2024 12:00 AM EDT [facility] OCCULT BLOOD,URINE 3+ Negative 12/03/2024 12:00 AM EDT [facility] RBC,URINE 1-2 0 - 4 [HPF] 12/03/2024 12:17 AM EDT [facility] WBC,URINE 1-2 0 - 4 [HPF] 12/03/2024 12:17 AM EDT [facility] SQUAMOUS EPITHELIAL CELL,URINE 1-2 0 - 2 [HPF] 12/03/2024 12:17 AM EDT [facility] BACTERIA,URINE 1+ None Seen [HPF] 12/03/2024 12:17 AM EDT [facility] HYALINE CASTS,URINE None 0 - 8 [LPF] 12/03/2024 12:17 AM EDT [facility] MUCUS,URINE 1+(AA) [LPF] 12/03/2024 12:17 AM EDT [facility] Other 12/02/2024 11:4 0 PM EDT 12/02/2024 11:49 PM EDT Narrative [facility] - 12/03/2024 12:17 AM EDT Comment c/o urinary symptoms or increased blood pressure Name Collection Type:: Voided us Eduardo Cruz DO LAB URINE ORDERABLES Final Re sult [facility] [address] [id number], [facility] [address] [place] [address] * RECURRENT VAGINITIS (HTRX) (11/20/2024 10:51 AM EDT) Pathologist [facility] ATOPOBIUM VAGINAE 0 19.961 - 24.689 ppm 11/21/2024 5:57 AM EDT [facility] ATOPOBIUM VAGINAE Not Detected 19.961 - 24.689 ppm 11/21/2024 5:57 AM EDT [facility] BVAB 2,3 (BACTERIAL VAGINOSIS ASSOCIATED BACTERIA 2, 3); MOBILUNCUS SPP 0 19.961 - 24.689 ppm 11/21/2024 5:57 AM EDT [facility] BVAB 2,3 (BACTERIAL VAGINOSIS ASSOCIATED BACTERIA 2, 3); MOBILUNCUS SPP Not Detected 19.961 - 24.689 ppm 11/21/2024 5:57 AM EDT [facility] GLORIA ALBICANS, PARAPSILOSIS, TROPICALIS 0 23.000 - 30.347 ppm 11/21/2024 5:57 AM EDT [facility] GLORIA ALBICANS, PARAPSILOSIS, TROPICALIS Not Detected 23.000 - 30.347 ppm 11/21/2024 5:57 AM EDT [facility] GLORIA GLABRATA 0 23.000 - 31.618 ppm 11/21/2024 5:57 AM EDT [facility] GLORIA GLABRATA Not Detected 23.000 - 31.618 ppm 11/21/2024 5:57 AM EDT [facility] GLORIA KRUSEI 0 23.000 - 30.873 ppm 11/21/2024 5:57 AM EDT [facility] GLORIA KRUSEI Not Detected 23.000 - 30.873 ppm 11/21/2024 5:57 AM EDT [facility] CHLAMYDIA TRACHOMATIS 0 23.000 - 31.586 ppm 11/21/2024 5:57 AM EDT [facility] CHLAMYDIA TRACHOMATIS Not Detected 23.000 - 31.586 ppm 11/21/2024 5:57 AM EDT [facility] GARDNERELLA VAGINALIS 0 19.961 - 24.689 ppm 11/21/2024 5:57 AM EDT [facility] GARDNERELLA VAGINALIS Not Detected 19.961 - 24.689 ppm 11/21/2024 5:57 AM EDT [facility] MEGASPHAERA (TYPES 1, 2) 0 19.961 - 24.689 ppm 11/21/2024 5:57 AM EDT [facility] MEGASPHAERA (TYPES 1, 2) Not Detected 19.961 - 24.689 ppm 11/21/2024 5:57 AM EDT [facility] NEISSERIA GONORRHOEAE 0 23.000 - 32.587 ppm 11/21/2024 5:57 AM EDT [facility] NEISSERIA GONORRHOEAE Not Detected 23.000 - 32.587 ppm 11/21/2024 5:57 AM EDT [facility] TRICHOMONAS VAGINALIS 0 23.000 - 31.995 ppm 11/21/2024 5:57 AM EDT [facility] TRICHOMONAS VAGINALIS Not Detected 23.000 - 31.995 ppm 11/21/2024 5:57 AM EDT [facility] MYCOPLASMA GENITALIUM 0 19.961 - 24.689 ppm 11/21/2024 5:57 AM EDT [facility] MYCOPLASMA GENITALIUM Not Detected 19.961 - 24.689 ppm 11/21/2024 5:57 AM EDT [facility] Tissue 11/20/2024 10:5 1 AM EDT 11/21/2024 1:16 AM EDT Basim Martinez DO LAB BLOOD ORDERABLES Final Resul t [facility] [address] [id number] * AFP, SERUM, OPEN SPINA BIFIDA (11/20/2024 10:37 AM EDT) RESULTS Report . [facility] TEST RESULTS: *Screen Negative* . [facility] GEST. AGE ON COLLECTION DATE 18.0 . weeks [facility] GESTAT. AGE BASED ON Ultrasound . [facility] Comment: 18.0 on 11/20/2024 Recalculations are not recommended when gestational dating by LMP and ultrasound are within 10 days. [age]ARWIN [age] [facility] RACE Other . [facility] WEIGHT 256 . lbs [facility] INSULIN DEP DIABETES No . [facility] MULTIPLE GESTATION No . [facility] AFP VALUE 27.6 . ng/mL [facility] AFP MOM 0.87 . [facility] [place] [address] [place] [address] . [facility] INTERPRETATION Comment . [facility] Comment: Interpretation: Screen Negative This result [...] Customer Services to discuss available options. The [employer] recommends amniocentesis be offered to women age 35 and older. COMMENT: Comment . [facility] Comment: Gisel Gandhi, Ph.D., [facility] Director References: Available Upon Request. Multiples Of Median Cutoffs For AFP Elevations [place] 2.5 Black 2.8 IDD 2.0 Twins 4.5 Abbreviation Definitions IDD - Insulin Dep Diabetes OSBR - Open Spina Bifida Risk For further inquiries contact [employer] [facility] at [phone]. This test was developed and its performance characteristics determined by [employer]. It has not been cleared or approved by the Food and Drug Administration. Performed at: [facility] [address], [place] [id number] Manager Print: Lorena Ellis [facility], Phone: [phone] 11/20/2024 10:3 7 AM EDT 11/20/2024 10:49 AM EDT Narrative [facility] - 11/22/2024 1:07 AM EDT N N ULTRASOUND [id number] 18 N 1 256 N N N N N White/ us Basim Juan DO LAB BLOOD ORDERABLES Final Resul t Performing Organization Address City/[facility] Co de Phone Number [facility] * ALL THYROID STIM HORMONE (11/20/2024 10:37 AM EDT) THYROID STIMULATING HORMONE 1.702 0.358 - 3.740 uIU/mL [facility] 11/20/2024 10:3 7 AM EDT 11/20/2024 10:49 AM EDT Narrative [facility] - 11/20/2024 11:26 AM EDT us Basim Juan DO [facility] Final Result Performing Organization Address City/[facility] Co de Phone Number [facility] from Last 3 Months Additional Health Concerns Active Problems Noted Date Diagnosed Date OB Reminders 10/22/2024 Insurance [facility] MEDICAID [place] Care Teams Strategic Planner Relationship Specialty Start Date End Date Amanda Ford NP [facility] [place] [address] PCP - General Family Medicine 01/17/23
--- OUTSIDE RECORDS SUMMARY | 2025-01-11 14:47 | XMS_ITS | Encounter Summary ---
Author Organization [facility] Address [address] [place] [address] Care Team Providers Care Candy Maker Name Role Phone Amanda Ford GUIDE ESCORT Primary Care Provider Encounter Details Date Type Department Care Team (Late st Contact Info) Description 10/22/2024 Abstract [facility] [address] [place] [address] Kerrie Babcock MA Social History Tobacco [...] EDT Routine [facility] [address] [place] [address] Mima Duenas, TY [address] [address] 02/20/2025 1:00 PM EST Office Visit [facility] [address] [place] [address] Les Martinez DO [address] [place] [address] 08/21/2025 9:30 AM EDT Office Visit [facility] [place] [facility] [address] [place] [address] Darleen Sinclair MD [address] [place] [address] documented as of this encounter Goals Goal Patient Goal Type Associated Problems Recent Progress Patient-Stated? Author Reminders Care Plan OB Reminders No Open Scheduling, Background documented as of this encounter Visit Diagnoses Not on filedocumented in this encounter Additional Health Concerns Active Problems Noted Date Diagnosed Date OB Reminders 10/22/2024 documented as of this encounter Care Teams Candy Maker Relationship Specialty Start Date End Date Amanda Ford NP [address] [facility] [place] [address] PCP - General Family Medicine 01/17/23 documented as of this encounter
--- OUTSIDE RECORDS SUMMARY | 2025-01-11 14:47 | XMS_ITS | Encounter Summary ---
Author Organization [facility] Address [address] [place] [address] Care Team Providers Care Systems Administration Analyst Name Role Phone Amanda Ford PHYSICIAN OBSTETRICIAN Primary Care Provider Encounter Details Date Type Department Care Team (Late st Contact Info) Description 01/10/2025 Telephone [facility] [address] [place] [address] Jojo Ames PA [address] [place], [facility] Social History Tobacco Use Types Packs/Day Years [...] Telephone Encounter - Lilibeth Green LPN - 01/10/2025 3:09 PM EDT Patient call returned and she was made after taking with provider that reference range is differentat each hospital and these levels are good. Patient states that her levels dropped from 12.9 to 12.In 1 month and she is taking the Profe as directed. Patient was advised to continue on this and that if levels continue to drop and get to 10 he would star this and if get around 9 is usually when he does transfusions. Patient voiced understanding. Patient also asked about her TSH level and that she is to have this done every 4 weeks and she was advised standing order is at the hospital for her to have obtained. * Telephone Encounter - Lilibeth Green LPN - 01/10/2025 1:09 PM EDT I just had some questions about the lab work that I got done yesterday. I had a CBC done and I saw that some of my labs were kind of all over the place and my hemoglobin is dropping some if I could just get a Call back so I can, you know, ask a couple questions or talk to you guys about it wheneverit is convenient at [phone]. Thank you. Had provider review labs to go over with patient when call is returned. documented in this encounter Plan of Treatment Upcoming Encounters Date Type Department Care Team (Late st Contact Info) Description 01/16/2025 11:20 AM EDT Routine [facility] HERNANDEZ [address] [place] [address] Mima Duenas, TY [address] [place] [phone] 02/20/2025 1:00 PM EST Office Visit [facility]IA HERNANDEZ [address] [place] [address] Les Martinez DO [address] [place], [place] [phone] 08/21/2025 9:30 AM EDT Office Visit [facility] [place] [facility] [address] [place] [address] Darleen Sinclair MD [address] [place] [address] documented as of this encounter Goals Goal Patient Goal Type Associated Problems Recent Progress Patient-Stated? Author Reminders Care Plan OB Reminders No Open Scheduling, Background documented as of this encounter Visit Diagnoses Not on filedocumented in this encounter Additional Health Concerns Active Problems Noted Date Diagnosed Date OB Reminders 10/22/2024 documented as of this encounter Care Teams Systems Administration Analyst Relationship Specialty Start Date End Date Amanda Ford NP [address] [place] [address] PCP - General Family Medicine 01/17/23 documented as of this encounter
--- OUTSIDE RECORDS SUMMARY | 2025-01-11 14:47 | XMS_ITS | Clinical Summary ---
Author Organization [facility] Address [address], [address] [place] [address] Care Team Providers Care Bronc Buster Name Role Phone Robin Marquez MD Primary Care Provider [phone] Allergies No known active allergies Medications levothyroxine [...] mouth daily Active Multiple Vitamins-Minera ls (THERAPEUTIC MULTIVITAMIN-AK NERALS) tablet Take 1 tablet by mouth [...] 4:42 PM 05/08/2020 3:13 PM Care Teams Bronc Buster Relationship Specialty Start Date End Date Robin Marquez MD [address] [id number] PCP - General Family Medicine 10/10/18
--- OUTSIDE RECORDS SUMMARY | 2025-01-11 14:48 | XMS_ITS | Clinical Summary ---
Author Organization [facility] [employer] tem Address [id number] [address] [place] [address] Care Team Providers Care Digital Research Analyst Name Role Phone No Pcp, No Pcp Primary Care Provider Unavailabl e Allergies Active Allergy Reactions Criticality Noted Date Comments Nsaids (Non-Steroidal Anti-I nflammatory Drug) 10/26/2024 Medications [id number] c acid ( 19) 29 mg iron- [...] Description 01/04/2025 Orders Only Maternal- Medicine at [facility] [address] [place] [phone] Krystyna Dick RN Previous gastric bypass affecting , antepartum (Primary Dx); Hypothyroidism affecting in second trimester; 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 (CMS-HCC); Obesity affecting in second trimester, unspecified obesity type 01/03/2025 Telephone [facility] [place] [address] [address] Roslyn Griffin RN 01/03/2025 Travel 12/05/2024 2:00 PM EDT Office Visit Maternal- Medicine at [facility] [address] [place] [phone] Enrike Garcia MD 20 weeks gestation of (Primary Dx); Previous gastric bypass affecting , antepartum; Obesity affecting in second trimester, unspecified obesity type; Hypothyroidism affecting in second trimester; 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 ([facility]); headache in second trimester 12/05/2024 12:36 PM EDT - 12/05/2024 11:59 PM EDT Hospital Encounter [facility] - [facility] [address] [place] [phone] Screening, , for anatomic survey Discharge Disposition: Home 12/05/2024 Orders Only Maternal- Medicine at [facility] [address] [place] [address] Chiquita Shen RN Previous gastric bypass affecting , antepartum (Primary Dx); Hypothyroidism affecting in second trimester; 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 (CMS-HCC); Obesity affecting in second trimester, unspecified obesity type; Encounter for supervision of resulting from assisted reproductive technology, antepartum 12/05/2024 Travel 12/04/2024 Telephone Maternal- Medicine at [facility] [address] [place] [address] Chiquita Shen RN 12/04/2024 Orders Only Maternal- Medicine at [facility] [address] [place] [address] Ref Prov, Not In System 12/04/2024 Abstract Maternal- Medicine at [facility] [address] [place] [address] Enrike Garcia MD 10/26/2024 Orders Only Maternal- Medicine at [facility] [address] [place] [address] Ref Prov, Not In System 10/26/2024 Abstract Maternal- Medicine at [facility] [address] [place] [address] Enrike Garcia MD from Last 3 Months [...] 02/07/2025 9:45 AM EDT Appointment [facility] [place] [address] [facility] [address] [place] [address] Health Maintenance Due Date Last [...] trimester 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 ([facility]) Obesity affecting in second trimester, unspecified obesity [...] period is included. Anatomical Region Laterality Modality OB-LEACH CELL OPERATOR Ultrasound 01/03/2025 2:30 PM EDT Narrative 01/04/2025 6:22 PM EDT NAME: MARIA EUGENIA HINDS : 1995 SEX: F Accession Number: [id number] ORDERING PHYSICIAN: ENRIKE GARCIA REFERRING PHYSICIAN: BASIM BIRMINGHAM Coding ----- --------- Procedures 14174: Follow-up Ultrasound, per fetus Indication ----- --------- Screening for follow-up survey, resulting from assisted reproductive technology- IUI, History of Gastric sleeve, Obesity in . History ----- --------- OB History 1. Para 0 [id number] Current ----- --------- Cell free DNA low [...] EFW (oz) 11 oz EFW by: Hadlock (HCP-WE-GP-FL) Extended Tibia 40.2 mm 25w 3d 79% Gayle Advance Agent 5.0 mm CM 2.7 mm <1% Nicolaides [...] Thorax RVOT view. LVOT view. 3-vessel view. 2-clhosi-rayrzmn view. Bicaval view. Abdomen Genitals. Extremities / [...] 6 cm. Recommendations ----- --------- Please see [facility] recommendations from prior clinical and/or ultrasound report documentation. The patient is scheduled in four to six week(s) to complete anatomic survey. Subsequent follow up or other follow up as clinically determined by primary OB provider unless otherwise specified by [facility]. Results forwarded to ordering provider so they can follow up with the patient as necessary. Procedure Note Enrike Garcia MD - 01/04/2025 NAME: MARIA EUGENIA HINDS : 1995 SEX: F Accession Number: [id number] ORDERING PHYSICIAN: ENRIKE GARCIA REFERRING PHYSICIAN: BASIM BIRMINGHAM Coding ----- --------- Procedures 85980: Follow-up Ultrasound, per fetus Indication ----- --------- Screening for follow-up survey, resulting from assistedreproductive technology- IUI, History of Gastric sleeve, Obesity in . History ----- --------- OB History 1. Para 0 [id number] Current ----- --------- Cell free DNA low [...] EFW (oz) 11 oz EFW by: Hadlock (PFQ-UI-BX-FL) Extended Tibia 40.2 mm 25w 3d 79% Gayle Advance Agent 5.0 mm CM 2.7 mm <1% Nicolaides [...] Thorax RVOT view. LVOT view. 3-vessel view. 9-ozerzg-fmkzavc view.Bicaval view. Abdomen Genitals. Extremities / Left [...] TRANSCRIBED RESULTS from Last 3 Months Insurance [facility] MEDICAID Care Teams Digital Research Analyst Relationship Specialty Start Date End Date No Pcp, No Pcp LUKE [place] [id number] PCP - General Family Medicine 05/20/20
--- OUTSIDE RECORDS SUMMARY | 2025-01-11 14:48 | XMS_ITS | Encounter Summary ---
Author Organization [facility] tem Address [id number] [address] [place] [address] Care Team Providers Care Green End Department Supervisor Name Role Phone No Pcp, No Pcp Primary Care Provider Unavailabl e Encounter Details Date Type Department Care Team (Late st Contact Info) Description 12/04/2024 Abstract Maternal- Medicine at [facility] [address] [place] [phone] Latricia Garcia MD [address] [facility], [address] [place] [id number] Social History Tobacco Use Types Packs/Day Years [...] 02/07/2025 9:45 AM EDT Appointment Maternal Medicine [place] [address] [facility] [address] [place] [address] documented as of this encounter Visit Diagnoses Not on filedocumented in this encounter Care Teams Green End Department Supervisor Relationship Specialty Start Date End Date No Pcp, [place] [address] PCP - General Family Medicine 05/20/20 documented as of this encounter
--- OUTSIDE RECORDS SUMMARY | 2025-01-11 14:48 | XMS_ITS | Encounter Summary ---
Author Organization [facility] Address [address] [place] [address] Care Team Providers Care Audio Video Mechanic Name Role Phone Amanda Ford BENDING FRAME OPERATOR Primary Care Provider Encounter Details Date Type Department Care Team (Late st Contact Info) Description 01/19/2023 Clinisync Result Encounter [facility] External Department Unsolicited Basim Martinez, DO [address] [place], [place] [address] Social History Tobacco Use Types Packs/Day Years [...] AM EDT Routine [facility] [address] [place] [address] Mima Duenas, BENDING FRAME OPERATOR [address] [place] [address] 02/20/2025 1:00 PM EST Office Visit [facility] [address] [place] [place] [phone] Basim Martinez DO [address] [facility] [place] [address] 08/21/2025 9:30 AM EDT Office Visit [facility] [address] [place] [address] Darleen Sinclair MD [address] [place] [address] documented as of this encounter Procedures Procedure [...] EDT Narrative 01/19/2023 3:46 PM EDT The [address] [address] Ultrasound Report Signed Patient: GUZMAN DEL CID MR#: [id number] : 1995 Acct:[id number] Age/Sex: 27 / F ADM Date: 01/19/23 Loc: US Attending Dr: Basim Martinez D.O. Ordering Physician: Basim Martinez D.O. Date of Service: 01/19/23 Procedure(s): US pelvis transvaginal Accession Number(s): [id number] cc: Basim Martinez D.O.; AMANDA FORD [place] [id number] Patient Name: GUZMAN DEL CID MRN: [id number] date: 1995 Sex: F Assigned Patient Location: US Current Patient Location: US Accession/Order Number: [id number] Exam Date: 01/19/2023 14:15 Report Date: 01/19/2023 [...] Signed By: 01/19/23 1549 DD/ 1546 TD/TT: Neighborhood Aide: Procedure Note Radiology, Radiologist, MD - 01/19/2023 [place] [address] Ultrasound Report Signed Patient: GUZMAN DEL CIDMR#: [id number] : 1995Acct:[id number] Age/Sex: 27 / FADM Date: 01/19/23 Loc: US Attending Dr: Basim Martinez D.O. Ordering Physician: Basim Martinez D.O. Date of Service: 01/19/23 Procedure(s): US pelvis transvaginal Accession Number(s): [id number] cc: Basim Martinez D.O.; AMANDA FORD [place] [address] Patient Name: GUZMAN DEL CID MRN: [id number] date: 1995 Sex: F Assigned Patient Location: US Current Patient Location: US Accession/Order Number: [id number] Exam Date: 01/19/2023 14:15 Report Date: 01/19/2023 [...] M.D. Signed By:01/19/23 1549 DD/ 1546 TD/TT: Neighborhood Aide: us Basim Juan DO [facility] Final Result * ALL DEHYDROEPIANDROSTERONE (01/19/2023 2:10 PM EDT) Pathologist [facility] DHEA, SERUM 141 31 - 701 ng/dL [facility] Comment: This test was developed and its performance characteristics determined by [facility]. It has not been cleared or approved by the Food and Drug Administration. Performed at: [address] [id number] Employment Counselor: Jon Horton MD, Phone: [phone] 01/19/2023 2:10 PM EDT 01/19/2023 2:12 PM EDT Narrative [facility] - 01/25/2023 6:07 PM EDT Result [facility] Juan [facility] Final Result [facility] * ALL ANTI-MULLERIAN HORMONE (01/19/2023 2:10 PM EDT) [facility] ANTI-MULLERIAN HORMONE (AMH) 0.895 . ng/mL [facility] Comment: For assays employing antibodies, the possibility exists for interference by heterophile antibodies in the samples.1 1.Yessenia Mayfield. Interferences in Immunoassays - still a threat. Clin. Chem. 2000; 46: 7110-1091. This test was developed and its performance characteristics determined by [facility]. It has not been cleared or approved by the Food and Drug Administration. Reference Range: Females 26 - 30y: 1.03 - 11.10 Median 4.20 AMH concentrations of >= 1.06 ng/mL is correlated with a better response to ovarian stimulation, produced more retrievable oocytes and higher odds of live according to Gleicher et al. Fertility and Sterility. 2010: 94:7565-1011. The current AMH test method correlates with [...] exclude an AMH-secreting ovarian tumor. Performed at: [facility] [address] [place] [id number] Employment Counselor: James Pereyra MD, Phone: [phone] 01/19/2023 2:10 PM EDT 01/19/2023 2:12 PM EDT Narrative [facility] - 01/23/2023 8:07 PM EDT us Basim Juan DO [facility] Final Result Performing Organization Address City/[facility]/ZIP Co de Phone Number [facility] TB * (ABNORMAL) [facility] PROLACTIN (01/19/2023 2:10 PM EDT) PROLACTIN 4.4(A) 4.8 - 23.3 ng/mL [facility] Comment: Performed at: [address] [id number] Employment Counselor: Isaac Dietz PhD, Phone: [phone] 01/19/2023 2:10 PM EDT 01/19/2023 2:12 PM EDT Narrative [facility] - 01/20/2023 4:07 AM EDT Basim Juan DO [facility] Final Result Performing Organization Address City/[facility]/ZIP Co de Phone Number [facility] * ALL FOLLICLE STIMULATING HORMONE (01/19/2023 2:10 PM EDT) FSH 8.4 . mIU/mL [facility] Comment: Adult Female: Follicular phase 3.5 - 12.5 Ovulation phase 4.7 - 21.5 Luteal phase 1.7 - 7.7 Postmenopausal 25.8 - 134.8 01/19/2023 2:10 PM EDT 01/19/2023 2:12 PM EDT Narrative [facility] - 01/20/2023 4:07 AM EDT us Basim Juan DO [facility] Final Result Performing Organization Address City/[facility]/ZIP Co de Phone Number [facility] * [...] DO CLIN[facility] Final Result Performing Organization Address [facility] Co de Phone Number [facility] * ALL DHEA SULFATE (01/19/2023 2:10 PM EDT) DHEA-SULFATE 91.4 84.8 - 378.0 ug/dL [facility] 01/19/2023 2:10 PM EDT 01/19/2023 2:12 PM EDT Narrative [facility]IN[facility] - 01/20/2023 4:07 AM EDT Basim Juan DO [facility] Final Result Performing Organization Address City/[facility] Co de Phone Number [facility] TB documented in this encounter Visit Diagnoses Not on filedocumented in this encounter Care Teams Audio Video Mechanic Relationship Specialty Start Date End Date Amanda Ford NP [address] [place] [address] [place] [address] PCP - General Family Medicine 01/17/23 documented as of this encounter
--- OUTSIDE RECORDS SUMMARY | 2025-01-11 14:48 | XMS_ITS | Patient Health Record ---
Author Organization [facility] [place] Address [address] [place] [address] Care Team Providers Care Conditioning Machine Operator Name Role Phone Robin Marquez MD Primary Care Provider Unavail able Reason For Referral No Information Plan Of Treatment No Information
--- OUTSIDE RECORDS SUMMARY | 2025-01-11 15:03 | XMS_ITS | CCD ---
Author Organization [facility] Care Team Providers Care Class B Driver Name Role Phone Robin Appiah Primary Care Provider [phone] MACKENZIE BRITO Referring Unavailable ROBIN APPIAH Primary [...] [place] Emergency Provider MARYSOL Jett Emergency Provider [phone] MD Lashonda Farhad Admit Provider MD Farhad Gallego Attending Provider [phone] MELY Ford Attending Provider SHARRON Jefferson Attending Provider Petr Lay Unavailable Romeo Santana Unavailable MELY Ford Primary Care Provider DO Romeo Santana Attending Provider Daxa Ford NPnifer Primary Care Provider Unavailable Rohrbacher COMMERCIAL SALES CONSULTANT, Amanda Primary Care Provider Romeo Santana DO Attending Provider [phone] Rohrbacher RUBBER TESTER, Amanda A Primary Care Provider Unavailable Primary Care Provider Unavailabl e DAVID, SHELLY G Referring Unavailable Unavailable Primary Care Provider Unavailabl e SAÚL ENRIQUEZ Attending Unavailable Rohrbacher RUBBER TESTER, Amanda A Primary Care Provider DAVID, SHELLY [...] Care Unavailable Alan, Narda T Admitting Unavailable Aaln, Narda T Attending Unavailable Rohrbacher, Amanda Primary [...] Unavailable JUAN, LES R Attending Unavailable Rohrbacher COMMERCIAL SALES CONSULTANT, Amanda Primary Care Provider Kassidy Arriaza DO Emergency Provider [phone] No Pcp, No Pcp Primary Care Provider Unavailabl e Chris Dickerson DO Attending Provider Les Martinez DO Attending Provider [phone] Elizabeth oTm Attending Provider Eduardo Cruz DO Attending Provider JUAN, LES [...] Non-steroidal anti-inflammato ry agent Drug allergy Unknown [facility] Other (20 sources) Non-steroidal anti-inflammato ry agent; Translations: [NSAIDs] Drug Allergy 3 Unknown [facility] (1 source) ALLERGIES NOT ON FILE; Translations: [ALLERGIES NOT ON FILE] Propensity to adverse reactions (disorder) [facility] 3 Repository (6 sources) NSAIDs; Translations: [NSAIDS (NON-STEROIDAL ANTI-INFLAMMATO RY DRUG)] Propensity to adverse reactions to drug [facility] (1 source) NSAIDs Drug allergy (disorder) 5 [facility] Repository Medications Current Medications Medication Drug Class(es) [...] bedtime) for sleep, 60 tab(s), Refill(s) 2, [facility], 182, cm, 07/09/19 13:03:00 [...] QID, # 60 tab(s), Refills(s) 2, Pharmacy: [facility] Start Date: 10/09/18 Status: Ordered lamoTRIgine 200 mg oral tablet (20 sources) Mood Stabilizer, Anti-epileptic Agent Start: 04-10-2022 Lamotrigine Active MG TABLET April 10, 2022 12:00am Start: 01-30-2020 lamotrigine 20 0 mg Tab 300 mg = 1.5 tab(s), Oral, Daily, # 45 tab(s), Refills(s) 5, Pharmacy: [facility], 182, cm, 12/06/19 12:03:00 EDT, Height/Length [...] qPM, # 90 tab(s), Refills(s) 2, Pharmacy: [facility], 182, cm, 12/06/19 12:03:00 [...] by mouth two times a day. Active [id number] acid ( 19) 29 mg iron- 1 mg tablet,chewable (6 sources) [id number]-[id number] acid ( 19) 29 mg iron- 1 [...] Start: 03-12-2020 take 2 tablets by mo [facility] at bedtime quetiapine 50 mg oral tablet 100 mg = 2 tab(s), Oral, Bedtime, # 60 tab(s), Refills(s) 5, Pharmacy: [facility], 182, cm, 12/06/19 12:03:00 [...] food, # 60 cap(s), Refills(s) 2, Pharmacy: [facility], 182, cm, 12/06/19 12:03:00 [...] anxiety, # 60 tab(s), Refills(s) 1, Pharmacy: [facility], 182, cm, 12/06/19 12:03:00 [...] D2) 1,250 mcg (50,000 unit) capsule Discontinued [id number] UNIT PO every week October 08, 2019 12:00am August 01, 2021 2:19pm Takes on Tuesday Start: 05-25-2019 Vitamin D2 200 0 intl units oral capsule Refills(s) 0 Start Date: 05/25/19 Status: Ordered Start: 01-12-2019 End: 05-08-2020 take 1 capsule by mouth every week vitamin D (ERGOCALCIFEROL) 21059 units CAPS capsule Indications: Vitamin D deficiency [...] WITH AUTO DIFFon BASOPHILS ABSOLUTE AUTO 0 [facility] Basophils/100 WBC (Bld) 0.3 % 0.2 - 2.0 % [facility] Eosinophils/100 WBC (Bld) 1.2 % 0.9 - 7.0 % [facility] Erythrocyte distribution width (RBC) [Ratio] 13.2 % 11.0 - 15.0 % [facility] Hematocrit (Bld) [Volume fraction] 35.6 % Low 36.0 - 48.0 % [facility] Hemoglobin (Bld) [Mass/Vol] 12 g/dL 12.0 - 16.0 g/dL [facility] IMMATURE GRANULOCYTES ABS AUTO 0.1 High [facility] Immature granulocytes/100 WBC (Bld) 0.8 % High 0.0 - 0.5 % [facility] Interpretation and review of laboratory results Abnormal [facility] LYMPHOCYTES ABSOLUTE AUTO 2.3 [facility] Lymphocytes/100 WBC (Bld) 19.7 % Low 20.5 - 60.0 % [facility] MCH (RBC) [Entitic mass] 29.6 pg 26.7 - 34.0 pg [facility] MCHC (RBC) [Mass/Vol] 33.7 g/dL 29.9 - 35.2 g/dL [facility] MCV (RBC) [Entitic vol] 87.7 fL 81.0 - 99.0 fL [facility] MONOCYTES ABSOLUTE AUTO 0.7 [facility] Monocytes/100 WBC (Bld) 6.2 % 1.7 - 12.0 % [facility] NEUTROPHILS ABSOLUTE AUTO 8.5 High [facility] Neutrophils/100 WBC (Bld) 71.8 % 43.0 - 75.0 % [facility] Platelet mean volume (Bld) [Entitic vol] 8.7 fL Low 9.5 - 13.5 fL [facility] TBH EO # 0.1 [facility] TB PLT 187 [facility] RBC 4.[address] [facility] WBC 11.8 High [facility] GLUCOSE 1 HOURon 01-09-2025 Glucose [Mass/Vol] 118 mg/dL NINF - 13 0 mg/dL [facility] Urinalysis macro (dipstick) panel (U)on 12-19-2024 Bilirubin, UA Negative Negative - 4(70) +++ mg/dL [facility] Blood, UA Negative Negative - 50 Yehuda/mcL [facility] Clarity, UA Clear [facility] Color, UA Yellow [facility] Glucose, UA Negative Negative - 1999(110) ++++ mg/dL [facility] Interpretation and review of laboratory results Normal [facility] Ketones, UA Negative Negative - 160(16) ++++ mg/dL [facility] Leukocytes, UA Negative Negative - 500+++ Kourtney/mcL [facility] Nitrite, UA Negative Negative - Positive [facility] pH, UA 7 5 - 9 [facility] Protein, UA Negative Negative - 1999(20) ++++ mg/dL [facility] Spec Grav, UA 1.01 1 - 1.03 [facility] Urobilinogen, UA 1.0 0.2 - 12 mg/dL [facility] No [facility] GENERAL INTERNIST/CARLOS RO IF IND.on 12-15-2024 BILIRUBIN URINE Negative NEGATIVE [facility] BLOOD URINE SMALL Abnormal NEGATIVE [facility] Clarity (U) CLEAR CLEAR [facility] Color (U) LT. YELLOW YELLOW [facility] GLUCOSE URINE UA Negative NEGATIVE mg/dL [facility] Interpretation and review of laboratory results Abnormal [facility] Ketones Ql (U) Negative NEGATIVE mg/dL [facility] Leukocyte esterase Test strip Ql (U) Negative NEGATIVE [facility] NITRITE URINE Negative NEGATIVE [facility] pH (U) 5.5 [pH] 5.0 - 9.0 [facility] PROTEIN URINE Negative NEG/TRACE mg/dL [facility] SPECIFIC GRAVITY URINE 1.015 1.005 - 1.025 [facility] URINE MICROSCOPIC INDICATED YES [facility] UROBILINOGEN URINE 0.2 EU/dL 0.2 - 1.0 EU/dL [facility] URINE MICROSCOPIC ONLYon 12-15-2024 BACTERIA URINE NONE [...] II, MD, PHD at 06-Dec-2024 08:04:50 AM [facility] Normal Not Available Comment on above: Order Comment: US OB ANATOMY SINGLE W US OB CERVICAL LENGTH Estimated Date of Delivery: 04/23/25 Gestational Age as of 11/20/2024: 18w0d Urinalysis complete panel (U )on 12-03-2024 Comment c/o urinary symptoms or increased blood pressure Name Collection Type:: Voided [facility] Appearance of Urineon 2024 Appearance (U) Clear Normal Clear [facility] Comment on above: Order Comment: Comme nt c/o urinary symptoms or increased blood pressure Name Collection Type:: Voided Performed By: #### A DDONUAPLUS #### [place] [address] [place] Bacteria [Presence] in Urine by AutomatedOrdered By: Eduardo Cruz on 12-02-2024 Bacteria Auto Ql (U) 1+ [HPF] High None Seen [facility] Bilirubin Test strip Ql (U)O rdered By: Eduardo Cruz on 12-02-2024 Bilirubin Ql (U) Negative Negative [facility] Color of Urine by [employer]oon Color (U) Light-Yellow Normal Yellow [facility] Comment on above: Order Comment: Comme nt c/o urinary symptoms or increased blood pressure Name Collection Type:: Voided Performed By: #### A DDONUAPLUS #### [facility] [address] [place] [address] [place] Dipstick and Microscopicon 0 12-02-2024 Bacteria,Urine 1+ [HPF] Normal None Seen [facility] Comment on above: Order Comment: Comme nt c/o urinary symptoms or increased blood pressure Name Collection Type:: Voided Performed By: #### A DDONUAPLUS #### [facility] [address] [place] [address] [place] BILIRUBIN,URINE Negative Normal Negative [facility] Comment on above: Order Comment: Comme nt c/o urinary symptoms or increased blood pressure Name Collection Type:: Voided Performed By: #### A DDONUAPLUS #### [address] Glucose Ql (U) Normal Normal Normal [facility] Comment on above: Order Comment: Comme nt c/o urinary symptoms or increased blood pressure Name Collection Type:: Voided Performed By: #### A DDONUAPLUS #### [address] Hyaline Casts,Urine None Normal 0-[facility] Comment on above: Order Comment: Comme nt c/o urinary symptoms or increased blood pressure Name Collection Type:: Voided Performed By: #### A DDONUAPLUS #### [address] Mucus,Urine 1+ [LPF] Critically abnormal [facility] Comment on above: Order Comment: Comme nt c/o urinary symptoms or increased blood pressure Name Collection Type:: Voided Result Comment: PERF ORMED BY: [place] [address] PATHOLOGIST DONKEY ENGINE FIRER/FIREMAN DAMIÁN DOSHI M.D. Performed By: #### A DDONUAPLUS #### [address] NITRITE,URINE Negative Normal Negative [facility] Comment on above: Order Comment: Comme nt c/o urinary symptoms or increased blood pressure Name Collection Type:: Voided Performed By: #### A DDONUAPLUS #### [address] OCCULT BLOOD,URINE 3+ Normal Negative [facility] Comment on above: Order Comment: Comme nt c/o urinary symptoms or increased blood pressure Name Collection Type:: Voided Result Comment: PERF ORMED BY: [place] [address] PATHOLOGIST DONKEY ENGINE FIRER/FIREMAN DAMIÁN DOSHI M.D. Performed By: #### A DDONUAPLUS #### [address] PROTEIN,URINE Negative Normal Negative [facility] Comment on above: Order Comment: Comme nt c/o urinary symptoms or increased blood pressure Name Collection Type:: Voided Performed By: #### A DDONUAPLUS #### [address] RBC,Urine 1-2 Normal 0-4 [facility] Comment on above: Order Comment: Comme nt c/o urinary symptoms or increased blood pressure Name Collection Type:: Voided Performed By: #### A DDONUAPLUS #### [address] SPECIFICY GRAVITY,URINE 1.017 Normal 1.001-1.030 [facility] Comment on above: Order Comment: Comme nt c/o urinary symptoms or increased blood pressure Name Collection Type:: Voided Performed By: #### A DDONUAPLUS #### [address] Squamous Epithelial Cell,Urine 1-2 Normal 0-2 [facility] Comment on above: Order Comment: Comme nt c/o urinary symptoms or increased blood pressure Name Collection Type:: Voided Performed By: #### A DDONUAPLUS #### [address] UROBILINOGEN,URINE Normal Normal Normal [facility] Comment on above: Order Comment: Comme nt c/o urinary symptoms or increased blood pressure Name Collection Type:: Voided Performed By: #### A DDONUAPLUS #### [address] WBC,Urine 1-2 Normal 0-4 [facility] Comment on above: Order Comment: Comme nt c/o urinary symptoms or increased blood pressure Name Collection Type:: Voided Performed By: #### A DDONUAPLUS #### [address] Epithelial cells.squamous [# /area] in Urine sediment by Automated countOrdered By: Eduardo Cruz on 12-02-2024 Epithelial cells.squamous Auto (Urine sed) [#/Area] 1-2 [HPF] 0-2 [facility] Erythrocytes [#/area] in Uri ne sediment by Automated countOrdered By: Eduardo Cruz on 12-02-2024 RBC Auto (Urine sed) [#/Area] 1-2 [HPF] 0-4 [facility] Glucose [Mass/volume] in Uri ne by Test stripOrdered By: Eduardo Cruz on 12-02-2024 Glucose Test strip (U) [Mass/Vol] Normal mg/dL Normal [facility] Hemoglobin Test strip Ql (U) Ordered By: Eduardo Cruz on 12-02-2024 Hemoglobin Ql (U) 3+ High Negative [facility] Hyaline casts [#/area] in Ur ine sediment by Automated countOrdered By: Eduardo Cruz on 12-02-2024 Hyaline casts Auto (Urine sed) [#/Area] None [LPF] 0-8 [facility] Ketones [Presence] in Urine by Test stripon 12-02-2024 Ketones Ql (U) Negative Normal Negative [facility] Comment on above: Order Comment: Comme nt c/o urinary symptoms or increased blood pressure Name Collection Type:: Voided Performed By: #### A DDONUAPLUS #### [facility] [address] [place] [address] [place] Leukocyte esterase [Presence ] in Urine by Test stripon 12-02-2024 Leukocyte esterase Test strip Ql (U) Negative Normal Negative [facility] Comment on above: Order Comment: Comme nt c/o urinary symptoms or increased blood pressure Name Collection Type:: Voided Performed By: #### A DDONUAPLUS #### [facility] [address] [place] [address] [place] Leukocytes [#/area] in Urine sediment by Automated countOrdered By: Eduardo Cruz on 12-02-2024 WBC Auto (Urine sed) [#/Area] 1-2 [HPF] 0-4 [facility] Mucus [Presence] in Urine by AutomatedOrdered By: Eduardo Cruz on 12-02-2024 Mucus Auto Ql (U) 1+ [LPF] Abnormal [facility] Nitrite Test strip Ql (U)Ord ered By: Eduardo Cruz on 12-02-2024 Nitrite Ql (U) Negative Negative [facility] Protein Test strip (U) [Mass /Vol]Ordered By: Eduardo Cruz on 12-02-2024 Protein (U) [Mass/Vol] Negative Negative [facility] Specific gravity Test strip (U) [Rel density]Ordered By: Eduardo Nancy on 12-02-2024 Specific gravity (U) [Rel density] 1.017 1.001-1.030 [facility] Urobilinogen Test strip (U) [Mass/Vol]Ordered By: Eduardo Cruz on 12-02-2024 Urobilinogen (U) [Mass/Vol] Normal mg/dL Normal [facility] pH of Urine by Test stripon 12-02-2024 pH (U) 5.5 [pH] Normal 5.0-9.0 [facility] Comment on above: Order Comment: Comme nt c/o urinary symptoms or increased blood pressure Name Collection Type:: Voided Performed By: #### A DDONUAPLUS #### [facility] [address] Basophils Auto (Bld) [#/Vol] Ordered By: Elizabeth Osborne ([place]) on 12-01-2024 Basophils (Bld) [#/Vol] 0.0 10 3/uL 0.0-0.1 [facility] Basophils/100 WBC Auto (Bld) Ordered By: (Roman) Elizabeth Osborne on 12-01-2024 Basophils/100 WBC (Bld) 0.3 % 0.2-2.0 [facility] Eosinophils/100 WBC Auto (Bl d)Ordered By: (Roman) Elizabeth Osborne on 12-01-2024 Eosinophils/100 WBC (Bld) 1.8 % 0.9-7.0 [facility] Erythrocyte distribution wid th Auto (RBC) [Ratio]Ordered By: (Diya sOborne on 12-01-2024 Erythrocyte distribution width (RBC) [Ratio] 14.0 % 11.0-15.0 [facility] Globulin Calc (S) [Mass/Vol] Ordered By: Elizabeth Osborne ([place]) on 12-01-2024 Globulin (S) [Mass/Vol] 3.6 g/dL [facility] Glomerular filtration rate ( GFR) estimation in non- AmericanOrdered By: Elizabeth Osborne ([place]) on 12-01-2024 GFR/1.73 sq M.predicted among non-blacks MDRD (S/P/Bld) [Vol rate/Area] mL/min/{1.73_m2} >=60 mL/min/1.73m 2 [facility] Hematocrit Auto (Bld) [Volum e fraction]Ordered By: (Diya Osborne on 12-01-2024 Hematocrit (Bld) [Volume fraction] 38.0 % 36.0-48.0 [facility] Hemoglobin [Mass/volume] in BloodOrdered By: Angelina) Elizabeth Osborne on 12-01-2024 Hemoglobin (Bld) [Mass/Vol] 13.0 g/dL 12.0-16.0 [facility] Laboratory - Chemistry and C hemistry - challengeOrdered By: (Diya Osborne on 12-01-2024 Bilirubin Ql (U) Negative NEGATIVE [facility] Glucose (U) [Mass/Vol] Negative NEGATIVE [facility] Ketones Ql (U) Negative NEGATIVE [facility] pH (U) 6.0 [pH] 5.0-9.0 [facility] Specific gravity (U) [Rel density] 1.025 1.005-1.025 [facility] Urobilinogen Qn (U) 1.0 {Fabián'U}/dL 0.2-1.0 [facility] Albumin [Mass/Vol] 3.1 g/dL Low 3.4-5.0 [facility] ALP [Catalytic activity/Vol] 45 U/L Low 46-116 [facility] ALT [Catalytic activity/Vol] 20 U/L 14-59 [facility] AST [Catalytic activity/Vol] 14 U/L Low 15-37 [facility] Bilirubin [Mass/Vol] 0.4 mg/dL 0.2-1.0 [facility] Calcium [Mass/Vol] 8.6 mg/dL 8.5-10.1 [facility] Chloride [Moles/Vol] 106 mmol/L 98-107 [facility] CO2 [Moles/Vol] 25.7 mmol/L 21.0-32.0 [facility] Creatinine [Mass/Vol] 0.37 mg/dL Low 0.55-1.02 [facility] GFR/1.73 sq M.predicted MDRD (S/P/Bld) [Vol rate/Area] mL/min/{1.73_m2} >=60 mL/min/1.73m 2 [facility] Glucose [Mass/Vol] 61 mg/dL Low 74-106 [facility] Potassium [Moles/Vol] 3.9 mmol/L 3.5-5.1 [facility] Protein [Mass/Vol] 6.7 g/dL 6.4-8.2 [facility] Sodium [Moles/Vol] 139 mmol/L 136-145 [facility] Urea nitrogen [Mass/Vol] 3.0 mg/dL Low 7.0-18.0 [facility] Urea nitrogen/Creatinine [Mass ratio] 8.1 mg/mg [facility] - Hematology and Cell countsOrdered By: Elizabeth Osborne ([place]) on 12-01-2024 Immature granulocytes/100 WBC (Bld) 1.0 % High 0.0-0.5 [facility] - Specimen inform ationOrdered By: Elizabeth Osborne ([place]) on 12-01-2024 Appearance (U) CLEAR CLEAR [facility] Color (U) LT. YELLOW YELLOW [facility] - UrinalysisOrder ed By: Elizabeth Osborne ([place]) on 12-01-2024 Leukocyte esterase Test strip Ql (U) Negative NEGATIVE [facility] Nitrite Ql (U) Negative NEGATIVE [facility] Protein Ql (U) Negative NEG/TRACE [facility] Leukocytes [#/volume] correc terry for nucleated erythrocytes in Blood by Automated counOrdered By: Elizabeth Osborne ([place]) on 12-01-2024 WBC corrected for nucl RBC Auto (Bld) [#/Vol] 10.0 10 3/uL 4.0-11.0 [facility] Lymphocytes Auto (Bld) [#/Vo l]Ordered By: Elizabeth India on 12-01-2024 Lymphocytes (Bld) [#/Vol] 2.2 10 3/uL 1.2-3.8 [facility] Lymphocytes/100 WBC Auto (Bl d)Ordered By: Daleo) Elizabeth India on 12-01-2024 Lymphocytes/100 WBC (Bld) 22.1 % 20.5-60.0 [facility] MCH Auto (RBC) [Entitic mass ]Ordered By: ([place]) Elizabeth India on 12-01-2024 MCH (RBC) [Entitic mass] 29.8 pg 26.7-34.0 [facility] MCHC Auto (RBC) [Mass/Vol]Or dered By: (Roman) Elizabeth [place] on 12-01-2024 MCHC (RBC) [Mass/Vol] 34.2 g/dL 29.9-35.2 [facility] MCV Auto (RBC) [Entitic vol] Ordered By: (Owens) Elizabeth India on 12-01-2024 MCV (RBC) [Entitic vol] 87.2 fL 81.0-99.0 [facility] Monocytes Auto (Bld) [#/Vol] Ordered By: Daleo) Elizabeth India on 12-01-2024 Monocytes (Bld) [#/Vol] 0.7 10 3/uL 0.3-0.8 [facility] Monocytes/100 WBC Auto (Bld) Ordered By: Daleo) Elizabeth Osborne on 12-01-2024 Monocytes/100 WBC (Bld) 6.5 % 1.7-12.0 [facility] Neutrophils Auto (Bld) [#/Vo l]Ordered By: ([place]) Elizabeth [place] on 12-01-2024 Neutrophils (Bld) [#/Vol] 6.9 10 3/uL High 1.4-6.5 [facility] Neutrophils/100 WBC Auto (Bl d)Ordered By: ([place]) Elizabeth Osborne on 12-01-2024 Neutrophils/100 WBC (Bld) 68.3 % 43.0-75.0 [facility] No Panel InformationOrdered By: (Roman) Elizabeth Thomason on 12-01-2024 Urine Microscopic Review NO [facility] Urine Occult Blood Negative NEGATIVE [facility] Eosinophils # (Auto) 0.2 10 3/uL 0.0-0.7 [facility] Immature Granulocyte # (Auto) 0.10 10 3/uL High 0.00-0.03 [facility] Platelet mean volume Auto (B ld) [Entitic vol]Ordered By: ([place]) Elizabeth Osborne on 12-01-2024 Platelet mean volume (Bld) [Entitic vol] 8.3 fL Low 9.5-13.5 [facility] Platelets Auto (Bld) [#/Vol] Ordered By: ([place]) Elizabeth Osborne on 12-01-2024 Platelets (Bld) [#/Vol] 177 10 3/uL 150-450 [facility] RBC Auto (Bld) [#/Vol]Ordere d By: DaleoBeto Johnsno [place] on 12-01-2024 RBC (Bld) [#/Vol] 4.36 10 6/uL 4.20-5.40 [facility] Serum or plasma albumin/glob ulin mass ratioOrdered By: Daleo) Elizabeth Osborne on 12-01-2024 Albumin/Globulin [Mass ratio] 0.9 {ratio} [facility] Serum or plasma anion gap de terminationOrdered By: Daleo) Elizabeth Osborne on 12-01-2024 Anion gap [Moles/Vol] 11.2 mmol/L [facility] Basophils Auto (Bld) [#/Vol] Ordered By: Chris Dickerson on 11-30-2024 Basophils (Bld) [#/Vol] 0.0 10 3/uL 0.0-0.1 [facility] Basophils/100 WBC Auto (Bld) Ordered By: Chris Dickerson on 11-30-2024 Basophils/100 WBC (Bld) 0.2 % 0.2-2.0 [facility] Eosinophils/100 WBC Auto (Bl d)Ordered By: Chris Dickerson on 11-30-2024 Eosinophils/100 WBC (Bld) 1.7 % 0.9-7.0 [facility] Erythrocyte distribution wid th Auto (RBC) [Ratio]Ordered By: Chris Dickerson on 11-30-2024 Erythrocyte distribution width (RBC) [Ratio] 14.1 % 11.0-15.0 [facility] Globulin Calc (S) [Mass/Vol] Ordered By: Chris Dickerson on 11-30-2024 Globulin (S) [Mass/Vol] 3.3 g/dL [facility] Glomerular filtration rate ( GFR) estimation in non- AmericanOrdered By: Chris Dickerson on 11-30-2024 GFR/1.73 sq M.predicted among non-blacks MDRD (S/P/Bld) [Vol rate/Area] mL/min/{1.73_m2} >=60 mL/min/1.73m 2 [facility] Hematocrit Auto (Bld) [Volum e fraction]Ordered By: Chris Dickerson on 11-30-2024 Hematocrit (Bld) [Volume fraction] 36.2 % 36.0-48.0 [facility] Hemoglobin [Mass/volume] in BloodOrdered By: Chris Dickerson on 11-30-2024 Hemoglobin (Bld) [Mass/Vol] 12.6 g/dL 12.0-16.0 [facility] - Chemistry and C hemistry - challengeOrdered By: Chris Dickerson on 11-30-2024 Bilirubin Ql (U) Negative NEGATIVE [facility] Glucose (U) [Mass/Vol] Negative NEGATIVE [facility] Ketones Ql (U) Negative NEGATIVE [facility] pH (U) 6.0 [pH] 5.0-9.0 [facility] Specific gravity (U) [Rel density] 1.015 1.005-1.025 [facility] Urobilinogen Qn (U) 1.0 {Fabián'U}/dL 0.2-1.0 [facility] Albumin [Mass/Vol] 3.1 g/dL Low 3.4-5.0 [facility] ALP [Catalytic activity/Vol] 47 U/L 46-116 [facility] ALT [Catalytic activity/Vol] 20 U/L 14-59 [facility] AST [Catalytic activity/Vol] 12 U/L Low 15-37 [facility] Bilirubin [Mass/Vol] 0.3 mg/dL 0.2-1.0 [facility] Bilirubin.direct [Mass/Vol] 0.1 mg/dL 0.0-0.2 [facility] Calcium [Mass/Vol] 8.8 mg/dL 8.5-10.1 [facility] Chloride [Moles/Vol] 108 mmol/L High 98-107 [facility] CO2 [Moles/Vol] 26.0 mmol/L 21.0-32.0 [facility] Creatinine [Mass/Vol] 0.32 mg/dL Low 0.55-1.02 [facility] GFR/1.73 sq M.predicted MDRD (S/P/Bld) [Vol rate/Area] mL/min/{1.73_m2} >=60 mL/min/1.73m 2 [facility] Glucose [Mass/Vol] 74 mg/dL 74-106 [facility] Potassium [Moles/Vol] 4.1 mmol/L 3.5-5.1 [facility] Protein [Mass/Vol] 6.4 g/dL 6.4-8.2 [facility] Sodium [Moles/Vol] 142 mmol/L 136-145 [facility] Urate [Mass/Vol] 3.0 mg/dL 2.6-6.0 [facility] Urea nitrogen [Mass/Vol] 7.0 mg/dL 7.0-18.0 [facility] Urea nitrogen/Creatinine [Mass ratio] 21.9 mg/mg [facility] - Hematology and Cell countsOrdered By: Chris Dickerson on 11-30-2024 Immature granulocytes/100 WBC (Bld) 0.7 % High 0.0-0.5 [facility] - Specimen inform ationOrdered By: Chris Dickerson on 11-30-2024 Appearance (U) CLEAR CLEAR [facility] Color (U) LT. YELLOW YELLOW [facility] - UrinalysisOrder ed By: Chris Dickerson on 11-30-2024 Leukocyte esterase Test strip Ql (U) SMALL Abnormal NEGATIVE [facility] Mucus Ql (Urine sed) TRACE Abnormal NONE SEEN [facility] Nitrite Ql (U) Negative NEGATIVE [facility] Protein Ql (U) Negative NEG/TRACE [facility] Leukocytes [#/volume] correc terry for nucleated erythrocytes in Blood by Automated counOrdered By: Chris Dickerson on 11-30-2024 WBC corrected for nucl RBC Auto (Bld) [#/Vol] 8.7 10 3/uL 4.0-11.0 [facility] Lymphocytes Auto (Bld) [#/Vo l]Ordered By: Chris Dickerson on 11-30-2024 Lymphocytes (Bld) [#/Vol] 2.0 10 3/uL 1.2-3.8 [facility] Lymphocytes/100 WBC Auto (Bl d)Ordered By: Chris Dickerson on 11-30-2024 Lymphocytes/100 WBC (Bld) 22.9 % 20.5-60.0 [facility] MCH Auto (RBC) [Entitic mass ]Ordered By: Chris Dickerson on 11-30-2024 MCH (RBC) [Entitic mass] 30.0 pg 26.7-34.0 [facility] MCHC Auto (RBC) [Mass/Vol]Or dered By: Chris Dickerson on 11-30-2024 MCHC (RBC) [Mass/Vol] 34.8 g/dL 29.9-35.2 [facility] MCV Auto (RBC) [Entitic vol] Ordered By: Chris Dickerson on 11-30-2024 MCV (RBC) [Entitic vol] 86.2 fL 81.0-99.0 [facility] Monocytes Auto (Bld) [#/Vol] Ordered By: Chris Dickerson on 11-30-2024 Monocytes (Bld) [#/Vol] 0.6 10 3/uL 0.3-0.8 [facility] Monocytes/100 WBC Auto (Bld) Ordered By: Chris Dickerson on 11-30-2024 Monocytes/100 WBC (Bld) 7.2 % 1.7-12.0 [facility] Neutrophils Auto (Bld) [#/Vo l]Ordered By: Chris Dickerson on 11-30-2024 Neutrophils (Bld) [#/Vol] 5.9 10 3/uL 1.4-6.5 [facility] Neutrophils/100 WBC Auto (Bl d)Ordered By: Chris Dickerson on 11-30-2024 Neutrophils/100 WBC (Bld) 67.3 % 43.0-75.0 [facility] No Panel InformationOrdered By: Chris Dickerson on 11-30-2024 Urine Bacteria MODERATE #/HPF Abnormal NONE SEEN [facility] Urine Culture Reflexed YES-[facility] Urine Occult Blood Negative NEGATIVE [facility] Urine Other Casts NONE SEEN #/LPF NONE SEEN [facility] Urine Other Crystals None Seen #/HPF None Seen [facility] Urine RBC 0-2 #/HPF 0-2 [facility] Urine Squamous Epithelial Cells FEW #/LPF Abnormal NONE/RARE [facility] Urine WBC 0-2 #/HPF Abnormal NONE SEEN [facility] Eosinophils # (Auto) 0.2 10 3/uL 0.0-0.7 [facility] Immature Granulocyte # (Auto) 0.06 10 3/uL High 0.00-0.03 [facility] Platelet mean volume Auto (B ld) [Entitic vol]Ordered By: Chris Dickerson on 11-30-2024 Platelet mean volume (Bld) [Entitic vol] 8.7 fL Low 9.5-13.5 [facility] Platelets Auto (Bld) [#/Vol] Ordered By: Chris Dickerson on 11-30-2024 Platelets (Bld) [#/Vol] 185 10 3/uL 150-450 [facility] RBC Auto (Bld) [#/Vol]Ordere d By: Chris Dickerson on 11-30-2024 RBC (Bld) [#/Vol] 4.20 10 6/uL 4.20-5.40 [facility] Serum or plasma albumin/glob ulin mass ratioOrdered By: Chris Dickerson on 11-30-2024 Albumin/Globulin [Mass ratio] 0.9 {ratio} [facility] Serum or plasma anion gap de terminationOrdered By: Chris Dickerson on 11-30-2024 Anion gap [Moles/Vol] 12.1 mmol/L [facility] Urine Cultureon 11-30-2024 Bacteria identified Cx Nom (U) 50,000 colonies/ml mixed bacterial skin contaminants 2 Days PERFORMED BY: [place] [id number] PATHOLOGIST DONKEY ENGINE FIRER/FIREMAN DAMIÁN DOSHI M.D. Normal [facility] Comment on above: Performed By: #### C UU #### [address] RECURRENT VAGINITIS (HTRX)on 11-21-2024 ATOPOBIUM VAGINAE [...] [facility] Alpha-fetoprotein (AFP) kelly urement ([id number])Ordered By: Les Martinez on 11-20-2024 AFP [MoM] 0.87 . [facility] Assess gestational ageOrdere d By: Les Martinez on 11-20-2024 Gestational age 18.0 weeks . [facility] Estimation of maternal age-s pecific risk of Down syndrome birthOrdered By: Les Martinez on 11-20-2024 [age] [Time] 30.1 yr . [facility] Insulin dependent diabetes m ellitus detectionOrdered By: Les Martinez on 11-20-2024 Insulin dependent diabetes mellitus Ql No . [facility] Interpretation of serum or p lasma second trimester quad maternal screen (narrative reOrdered By: Les Martinez on 11-20-2024 Second trimester quad maternal screen Gonzales [Interp] Comment . [facility] Comment on above: Interpretation: Scre en NegativeThis [...] quad maternal screen Gonzales [Interp] Negative . [facility] Laboratory - Chemistry and C hemistry - challengeOrdered By: Les Martinez on 11-20-2024 TSH Qn 1.702 m[IU]/L 0.358-3.740 [facility] No Panel InformationOrdered By: Les Martinez on 11-20-2024 AFP Triple Screen Comment Comment . [facility] Comment on above: Gisel Gandhi , Ph.D., DABCCDirectorReferences: Available Upon Request.Multiples Of Median Cutoffs For AFP ElevationsSingleton 2.5 Black 2.8IDD 2.0 Twins 4.5 Abbreviation DefinitionsIDD - Insulin Dep DiabetesOSBR - Open Spina Bifida RiskFor further inquiries contact [employer] at [phone].This test was developed and its performance characteristicsdetermined by [employer]. It has not been cleared or approvedby the Food and Drug Administration.Performed at: [facility] [id number] [facility] Hospital[facility], [place] [id number] Director: Lorena Ellis [facility], Phone: [phone] Alpha Fetoprotein Results Received Report . [facility] Gestational Age Calculation Method Ultrasound . [facility] Comment on above: 18.0 on 11/20/2024Re calculations are not recommended when gestational datingby LMP and ultrasound are within 10 days. Maternal Quad Test Risk 95937 . [facility] Maternal Race Other . [facility] Multiple No . [facility] Serum or plasma [id number]-[id number] protein measurement (mass/volume)Ordered By: Les Martinez on 11-20-2024 AFP [Mass/Vol] 27.6 ng/mL . [facility] Urinalysis macro (dipstick) panel (U)on 11-20-2024 Bilirubin, UA Negative Negative - 4(70) +++ mg/dL [facility] Blood, UA Negative Negative - 50 Yehuda/mcL [facility] Clarity, UA Clear [facility] Color, UA Yellow [facility] Glucose, UA Negative Negative - 1999(110) ++++ mg/dL [facility] Interpretation and review of laboratory results Abnormal [facility] Ketones, UA Negative Negative - 160(16) ++++ mg/dL [facility] Leukocytes, UA 2+ Negative - 500+++ Kourtney/mcL [facility] Nitrite, UA Negative Negative - Positive [facility] pH, UA 8 5 - 9 [facility] Protein, UA Negative Negative - 1999(20) ++++ mg/dL [facility] Spec Grav, UA 1.01 1 - 1.03 [facility] Urobilinogen, UA 1.0 0.2 - 12 mg/dL [facility] Laboratory - Chemistry and C hemistry - challengeOrdered By: Chris Dickerson on 11-17-2024 Bilirubin Ql (U) Negative NEGATIVE [facility] Glucose (U) [Mass/Vol] Negative NEGATIVE [facility] Ketones Ql (U) Negative NEGATIVE [facility] pH (U) 7.5 [pH] 5.0-9.0 [facility] Specific gravity (U) [Rel density] 1.010 1.005-1.025 [facility] Urobilinogen Qn (U) 1.0 {Fabián'U}/dL 0.2-1.0 [facility] Laboratory - Specimen inform ationOrdered By: Chris Dickerson on 11-17-2024 Appearance (U) CLEAR CLEAR [facility] Color (U) LT. YELLOW YELLOW [facility] Laboratory - UrinalysisOrder ed By: Chris Dickerson on 11-17-2024 Leukocyte esterase Test strip Ql (U) Negative NEGATIVE [facility] Mucus Ql (Urine sed) NONE SEEN NONE SEEN [facility] Nitrite Ql (U) Negative NEGATIVE [facility] Protein Ql (U) Negative NEG/TRACE [facility] No Panel InformationOrdered By: Chris Dickerson on 11-17-2024 Urine Bacteria TRACE #/HPF Abnormal NONE SEEN [facility] Urine Culture Reflexed NO [facility] Urine Occult Blood Negative NEGATIVE [facility] Urine Other Casts NONE SEEN #/LPF NONE SEEN [facility] Urine Other Crystals None Seen #/HPF None Seen [facility] Urine RBC NONE SEEN #/HPF 0-2 [facility] Urine Squamous Epithelial Cells RARE #/LPF NONE/RARE [facility] Urine WBC NONE SEEN #/HPF NONE SEEN [facility] Ultrasound - Officeon 2024 Radiology Study observation (narrative) [facility] Urinalysis macro (dipstick) panel (U)on 10-22-2024 Bilirubin, UA Negative Negative - 4(70) +++ mg/dL [facility] Blood, UA Negative Negative - 50 Yehuda/mcL [facility] Clarity, UA Clear [facility] Color, UA Yellow [facility] Glucose, UA Negative Negative - 1999(110) ++++ mg/dL [facility] Interpretation and review of laboratory results Normal [facility] Ketones, UA Negative Negative - 160(16) ++++ mg/dL [facility] Leukocytes, UA Negative Negative - 500+++ Kourtney/mcL [facility] Nitrite, UA Negative Negative - Positive [facility] pH, UA 7 5 - 9 [facility] Protein, UA Negative Negative - 1999(20) ++++ mg/dL [facility] Spec Grav, UA 1.01 1 - 1.03 [facility] Urobilinogen, UA 1.0 0.2 - 12 mg/dL [facility] Appearance of UrineOrdered B y: Kassidy Arriaza on 10-18-2024 Appearance (U) Clear Normal Clear [facility] Comment on above: Order Comment: Name Collection Type:: Clean-Voided Midstream Performed By: #### U A, CUU #### [address] Bilirubin Test strip Ql (U)O rdered By: Kassidy Arriaza on 10-18-2024 Bilirubin Ql (U) Negative Negative [facility] Chlamydia/GC Amplificationon 10-18-2024 Chlamydia Trachomotis, AC Negative Normal Negative [facility] Comment on above: Order Comment: SOURC E OF SPECIMEN: Genital Performed By: #### G CCHLAMAMP #### [facility] , #### CUGEN #### [address] Neisseria Gonorrhoeae, AC Negative Normal Negative [facility] Comment on above: Order Comment: SOURC E OF SPECIMEN: Genital Result Comment: Perf ormed at: =G - [facility] [address] [id number] Supply Chain Manager: Dagmar Love MD, Phone: [phone] PERFORMED BY: [place] [address] PATHOLOGIST DONKEY ENGINE FIRER/FIREMAN DAMIÁN DOSHI M.D. Performed By: #### G CCHLAMAMP #### [facility] , #### CUGEN #### [address] Color of Urine by AutoOrdere d By: Kassidy Arriaza on 10-18-2024 Color (U) Colorless Normal Yellow [facility] Comment on above: Order Comment: Name Collection Type:: Clean-Voided Midstream Performed By: #### U A, CUU #### [place] [address] [place] Genital Cultureon 10-18-2024 Genital Culture Genital Results Light Normal Urogenital Damián 2 Days No More GC Specimen not tested for Neisseria gonorrheae PERFORMED BY: [place] [address] PATHOLOGIST DONKEY ENGINE FIRER/FIREMAN DAMIÁN DOSHI M.D. Normal [facility] Comment on above: Performed By: #### G CCHLAMAMP #### [facility] , #### CUGEN #### [facility] [address] [place] [address] Genital specimen bacteria id entification by aerobic cultureOrdered By: Kassidy Arriaza on 10-18-2024 Bacteria identified Aer cx Nom (Genital specimen) [facility] Glucose [Mass/volume] in Uri ne by Test stripOrdered By: Kassidy Arriaza on 10-18-2024 Glucose Test strip (U) [Mass/Vol] Normal mg/dL Normal [facility] Hemoglobin Test strip Ql (U) Ordered By: Kassidy Arriaza on 10-18-2024 Hemoglobin Ql (U) Negative Negative [facility] Ketones [Presence] in Urine by Test stripOrdered By: Kassidy Arriaza on 10-18-2024 Ketones Ql (U) Trace Normal Negative [facility] Comment on above: Order Comment: Name Collection Type:: Clean-Voided Midstream Performed By: #### U A, CUU #### [address] Laboratory - Microbiology an d Antimicrobial susceptibilityOrdered By: Kassidy Arriaza on 10-18-2024 C. trachomatis DNA AC+probe Ql (Unsp spec) Negative Negative [facility] N. gonorrhoeae DNA AC+probe Ql (Unsp spec) Negative Negative [facility] Comment on above: Performed at: =[address] [id number] Director: Dagmar Love MD, Phone: [phone] Leukocyte esterase [Presence ] in Urine by Test stripOrdered By: Kassidy Arriaza on 10-18-2024 Leukocyte esterase Test strip Ql (U) Negative Normal Negative [facility] Comment on above: Order Comment: Name Collection Type:: Clean-Voided Midstream Performed By: #### U A, CUU #### [facility] [address] [place] [address] [facility] Nitrite Test strip Ql (U)Ord ered By: Kassidy Arriaza on 10-18-2024 Nitrite Ql (U) Negative Negative [facility] Protein Test strip (U) [Mass /Vol]Ordered By: Kassidy Arriaza on 10-18-2024 Protein (U) [Mass/Vol] Negative Negative Fi [facility] Specific gravity Test strip (U) [Rel density]Ordered By: Kassidy Arriaza on 10-18-2024 Specific gravity (U) [Rel density] 1.007 1.001-1.030 [facility] US OB <= 14 weeks fetuson US OB <= 14 weeks fetus [facility] Main [place] [address] [place], [place] [id number] Ultrasound Report Signed Patient: Jaz Sanders MR#: [id number] : 1995 Acct:[id number] Age/Sex: 29 / F ADM Date: 10/18/24 Loc: ER Room: Type: [facility] ER Attending Dr: Ordering Provider: Kassidy [...] Jr., D.ORenae 10/18/2024 2:21 PM Dictation Location: [place] [address] Tech: Natalie Raissa Transcribed By: MAITE 10/18/24 1421 Dictated By: Sravan Dickinson Jr, DO 10/18/24 1419 Signed By: 10/18/24 1421 Normal [facility] Unlisted Lab Teston 10-19-19 [facility] Urinalysison 10-18-2024 Bilirubin,Urine Negative Normal Negative [facility] Comment on above: Order Comment: Name Collection Type:: Clean-Voided Midstream Performed By: #### U A, CUU #### [address] Glucose Ql (U) Normal Normal Normal [facility] Comment on above: Order Comment: Name Collection Type:: Clean-Voided Midstream Performed By: #### U A, CUU #### [place] [address] [place] Nitrite,Urine Negative Normal Negative [facility] Comment on above: Order Comment: Name Collection Type:: Clean-Voided Midstream Performed By: #### U A, CUU #### [place] [address] [place] Occult Blood,Urine Negative Normal Negative [facility] Comment on above: Order Comment: Name Collection Type:: Clean-Voided Midstream Result Comment: PERF ORMED BY: [place] [address] PATHOLOGIST DONKEY ENGINE FIRER/FIREMAN DAMIÁN DOSHI M.D. Performed By: #### U A, CUU #### [place] [address] [place] Protein,Urine Negative Normal Negative [facility] Comment on above: Order Comment: Name Collection Type:: Clean-Voided Midstream Performed By: #### U A, CUU #### [place] [address] [place] Specificy [place],Urine 1.007 Normal 1.001-1.030 [facility] Comment on above: Order Comment: Name Collection Type:: Clean-Voided Midstream Performed By: #### U A, CUU #### [address] Urobilinogen,Urine Normal Normal Normal [facility] Comment on above: Order Comment: Name Collection Type:: Clean-Voided Midstream Performed By: #### U A, CUU #### [facility] [address] Urine Cultureon 10-18-2024 Bacteria identified Cx Nom (U) <9,000 colonies/ml mixed bacterial skin contaminants 2 Days PERFORMED BY: [place] [address] PATHOLOGIST DONKEY ENGINE FIRER/FIREMAN DAMIÁN DOSHI M.D. Normal [facility] Comment on above: Performed By: #### U A, CUU #### [facility] [address] Urine cultureOrdered By: Jemima Arriaza on 10-18-2024 Bacteria identified Cx Nom (U) 2 Days [facility] Urobilinogen Test strip (U) [Mass/Vol]Ordered By: Kassidy Arriaza on 10-18-2024 Urobilinogen (U) [Mass/Vol] Normal mg/dL Normal [facility] pH of Urine by Test stripOrd ered By: Kassidy Arriaza on 10-18-2024 pH (U) 7.0 [pH] Normal 5.0-9.0 [facility] Comment on above: Order Comment: Name Collection Type:: Clean-Voided Midstream Performed By: #### U A, CUU #### [facility] [address] [place] [address] Unlisted Lab Teston 10-17-19 [facility] BOX TESTon 10-10-2024 BOX TEST SENT OUT [facility] [address] [facility] [address] 10-10-24 [facility] Coding Summaryon 10-02-2024 Coding Summary HTMLBase 64 ZfokoovoOGp8uNw+PGhlYWQ +VK2CFDPaG31hiRPtcI6qG0 NMTElOSywgQVBQTElOSyIgb wOoTM5xdIZrANRr IC8+QQ6bCQOnEqwpsKRrk1I 9sUJ8C74cat0wBRuvvJT1YW NaZcEitcgwz5vpmDe4DGpoS mluOyBt BRYgvK81PFC5lO03Xn08iTX yvUSrf5pmjAd6BhRaUEPlTJ I8mZaiKAwot0GnKTDeJ49dh QTqd7L6 UPWdrGkpoZEwRoPalMP4gZ1 fNEmluhmsz0htofbqFwt0wy 87eCAcg6F2cNF6C8DpinK9Z GJvbGQg QyisdYJZeO1qwjygj3vnayk fHeByYSYaCHw2RHa1HXRznV vjJrNjYO93MSI6YOPwghAxW 2FsLWFs iItyIpI8e6G6Xj0NN8VDVhb sP8GMYRHHMGcihUL+PC90cj 66T4EoScdfNjt3SEBuUAB0w KA3gT9v SCPyFPinn4V7cTR2V7NpuoN djr5op1nbCKBqXSlfD93tyJ Mwa6Q6PDIkqXH8RDXvoZbdO iBzaG93 Oyc+XILjjGdbw6OqBxccs5h sn5yllGg8MzttDBKbozEwzY hcSRH3j2QeNr8uOUMamDJ1b VI7wW9x OdIgXzO3SDyiE646VmRrcEG nXnuuE85bV6FrrHX+PHRyPj r6VQDcdLlgHM8oB8EiIQPfw mctbGVm uIqqJX1dOWKfpzfeMIEpzY2 pPBZrA4d7OdOkAyZ0ZJbbM7 ZdQNDfqrhrXd92qM8eMeAxY zH9UUpq K1TqloD8PHHrtOSeITcgSNI 0I41pd2T8UONyRKItQIA6zU O7aV8xlBioizyxpDBoaFlsf mVydGlj RKzcKYknR751CINdfAtwBnD vZGluZyBEYXRlOiAgMDYvMT cvMjAyNTwvdGQ+ONYrXDU0i WxlPSAn pFPsBEubDk3lcAbxrPpaCJ5 kCSOsixrxSVUygG0zJKOneK IceYsyPU0hKMUynhodl776K iAxMHB0 BZMraQGkJ1VziK2gEhBxGSU vPLSaL0XjhPKdWNufA871IZ kwFxF4LBOcyhAfO5JmAXVek WduOiB0 v8Y8Rm1Za2GduxqnV1UueNS vBhOvVfpyYGh9H3EcSwmzfU I+BJ99DPKdLY36MLg5AMF4s WxlPSdi XNWhA1WjzB2xZwDjLLGqWXS kOyc+PHRhYmxlIHdpZHRoPS xvJYLrBgShvJorJW0hDt9bM GVyLWNv lXbndZVsSsRnv9mpWBFoQAx qTA6ogDymD3GxsCX6KEZcn8 s5Tu63N66zT2FjwKT+PGNvb CT8pCD1 gK1eSbPkXqU8TDqaU332IaW jkSViSilgp5vqf9kyyNg4Tt H4EQYfngLhwKkqCWP2d4MhR m36C48g IHdpZHRoPSIxNSUiIHZhbGl lia0ayB2cCj6+LAWntVB3oW Q1zA2mElDbUgL7UXsiB143U nRvcCIv Cjekt1iiv9jmcEk6MlBpIBH bszQnrKxpYLB8u3FzWl00R9 GroCxhi1LdNzs3ph19lOCdx 6X9cUY1 X9OgOWLatrfzlUVfqNevTV0 hVWJwrhwfXAZpsX3tRBDeA5 j1DbNtOgI2TJnrO4XmvaH3P GJvbGQg LOXjhILCrD8rscdjx5hopjj pUaHiBOVyLDs1WYp8CSQztI emMzPxVCV9OkZ5PLE8hQObd A5olWbi nnuioB2oXov+MSF4jFXdtXP JOZ6bNdhmpZX+PZWlNLG2pO efSTodHQWmzH4xVZSiX5l4H iAwLjA1 ZTyyX1TkduG3ODOyuIQcJXV ebCNKsP1nbdvms1tivowjJp LbOUWjDUd7ACp8VOFdrYqsS iBsZWZ0 FcS9BDU6cYIdnK3ajKgibma slP7yLvi+OxdofKekPIG5ZI g7L9SdJur0RQIhtOoqSZ3ek GFkZGlu Pe6jtZqmnDqhYT1hRVPmhvr qu939HkYaz0uiNESgiFUeCW ccBUV9A48qt6C1SSTpUCSpE BM8cSF5 aU7qdOrjuyzygCSkgXwrzvB skWdpNNtpJVihV895FQWsbZ tuBdYdCLc3E5TaUeg5QEYoj OtrET1r vTUoVTjvKg5pjAxftRozFP7 qYXKneojhe745RbCqo6eaQY QkuVTcPPfrFGV4Q80ln8D9J CMwMDAw WJY0hOU0sB9baDnaoqjyjPH mdDsgdmVydGljYWwtYWxpZ2 75NXEhsTppKpDhwFa7D8KxX vw2LPQk iUrrBQ4nwFOgQEaoOa4rcDj ftSndUC7qTLXmbepwl752Je Sks4bjSMAzoBMzGPdqVTF7X 91rl9I0 AGHvETAhTLS6uXJ3rC4vxOi nbjogbGVmdDsgdmVydGljYW buNVfbH296KMLwxGpjMfAcj GllbnQg LHsgCZr3L9SqRvkcuYM+PC9 2OWSrPG26tBWmlYNnb5wwpB m9TkOpSCUvHZV4qXidFZqqc 3JkZXIt K44qaLJpl7D2ZPYkzIriqEN rSuCoeGA1eC5ePLwykjwqm7 calqmwCoptz9kcrl59uB99A 29sIHdp ZHRoPSIzMCUiIHZhbGlnbj0 syJ5yDd2+VKTlhHW1bLD0tW 3lPHKhGeE1IWviO534SaNtl CIvPjxj c3vwe3wpwVb0OjH0HGCkaqW ebQcuFBG9p4VdNu53E58sUV dpZHRoPSIyMCUiIHZhbGlnb y1hdS4f Ii8+DBMsdHH6gTK1wH0vInD uQvS3YTyiQ599YuTmwSKbUw lqN35mO5MomPF+XPSzXed6N CBzdHls RR0uyAOcZRwjLh0yKXZ7OrN nQsAoXIkzX6FuINApydcumb ravPG9IRTkZKRlxJ36Em6hg DogMTBw pWIDnJ9nlnral9dnqvknYyR uDUNvTZy4GCg8OWYydCbdEi LkWDD9OsJ8ZVO2xKDrrL1oy Glnbjog tA0uQ3SsJGLdjyhjFh77iS1 iNcOpOqS5CHcoHvw+TUNDQU 5OLCBIRUFUSEVSIEVMSVpBQ kVUSDwv dGQ+WLNtQNW7pOjgVQhvEVH whT2oCXTtE5n9YzIoEnA3CY lbV4RlBIJqfqhbRv31cJ3nM iAwLjA1 ZMdpI0YnblI0DLUpfGYsCAv uPJN7D26sc2G1WWShJIGfWR B6xEA7iS8kuJbxvplfuLVzm DsgdmVy lOctXCbxIPauG944QUJtkDy gIfZjZmS4WwW9MSC7U9NuUr n8UTIwxSntCP4vfXRoVVfbA w7sgXup yYhcKR1vLGHcaihqJWDewF3 hMHJnaAVsiBpeSW7yNXVqnn wfx149PdWyAPM4DBZgwWOsO 3UefM8c CwEuIWKtCGXlK7IrhVJeAIb bR851VTkrEbA9BEVvigIiE2 SmKYYgbPppWkZ4a4Q7Dk6wZ SBZZWFy czwvdGQ+OVShNQV7bScbUJu hZUCawW4pDDAiG0c4MzMzCy M1ZFohJ4XoIPQihybzBi79g I8xBzRa SfO4RMbaN8XezeS0TMMxbCW zVJrbLVZ5H97te8D6CVQsWX YuZJC1vND6nW4xxZmgiptlc GVmdDsg tpGhjCgdKYtmMQbzS530MAM vcDsnPkZFTUFMRTwvdGQ+PH YvOVY2nJpiHCkxDSCklS6gR HBcR8c3 DjQkSyF4OLapS0RkUNAhdir fMy67eI1pPgNkYaO1CRvhP7 RygoM2XECwiGVfZOxoGBU6V 86pn4H5 MWDvSPOkILO2qQP2lD2auRn nbjogbGVmdDsgdmVydGljYW wcSJrcF315ARCziWqrNt5HO Q28WH10 Z2BzWdszpLHrdPW+PHRhYmx lIHdpZHRoPScxMDAlJyBzdH hkDR8iJo7eGECgHEPtuAkfo HNlOiBj h9agRFCyJHunCO5flBydF6C enNM2WBOuu0t0Pf91E19tQ7 JvdXA+FRTorEG4tSQ2iR9dU zAlIiB2 INqzB391KzOoaINtWrrme9j ps1mnwMw6AxIcIRHukwBkuS kuNUA9k9JwFn77S13jZQpdF HRoPSIy ZDSjOBAyvNqzjw8ykU0xUe0 +ONSgrSO2iZS9rI0iYeMzJv R6HUqdH642UaAmiCXhIcpxJ 59vT1Us dXA+SWKhRgb3OBBfgDqtIJ7 jcSOdXCinPl2kLYE4TkWoRu BpAOvqC1DjIPJfzecagxpog RT1GVNk KIFzrY52Lx6ieYqrSj8oTKG oXGW2SOPncUTvS9AcwV9bLi WoJGAyWOAcE4UnyDPuAOycT 246IGxl ZvB0UNEtrdZgH5SiOGIqaLc wCiP0b2B8Th3AwCacjUOdUN 4dOdOcHEg9U1GvDfl0FIVnc DpwPD3b fGOfGYcgYj8lrVbbeZpkUK1 hFLUzszpvb074IvSea9yeIK YfsOEiZNeqQVI7A42iy8B3M CMwMDAw TBJ7gEC1nV2htDkipxnihPZ mdDsgdmVydGljYWwtYWxpZ2 85SUEppKajCwOLImq4J2QnD ly7OVTz vEdyTP4njCGsTUkpJz8vlOz boNjmUT5sAQHmngjtc706Bn Muk1ycAUTqmOBpVPpuJDM8K 96vc9H1 HCUvSPNfYQD8rJQ7xC9sePf nbjogbGVmdDsgdmVydGljYW dsEIryD770RMHxxJxpRx0KT lk6P0Dn Udc1QFTqgKijNO4thBWzCZs wJe7idAvxrEgkRA3xNSUqwi xrj520LtQdn4daSNBrkRQtY GltZXM7 L65qm3C7WOBaBTIySMG4uXC 0jJ8kfDexnapmoGOqsBlhvx NsxXrsUJyuNKriO960FJTys DsnPlBh eWVyOjwvdGQ+GO56jw71C9N iHjfxYzh0VWSuUUM1fDA5pW 0sZFWsABpjl3H0jLI9Q5Iip eKwta4o b2x (more content not included)... Normal [facility] Compliance Drug Analysis, Ur LCon 10-02-2024 Summary LC FINAL Invalid Interpretation Code [facility] Comment on above: Result Comment: ===== TOXASSURE [...] test is not intended to distinguish between dahil-4-ekogndgcxpzcbgsapibt, the predominant form of THC in most herbal or marijuana-based products, and xxgrc-7-wacoyidvxcvuipgyqdrs. Lamotrigine PRESENT Acetaminophen PRESENT ===== Test Result Flag Units Ref Range Creatinine 45 mg/dL >=20 ===== Declared Medications: Medication list was not provided. ===== For clinical consultation, please call . ===== [facility]oxAssure, ToxAssure FLEX or MAT drug testin -Technical component - Data analysis performed at [address] [id number]. [phone]. Supply Chain Manager César Bains MD. ToxAssure, ToxAssure FLEX or MAT drug testing: -Technical component - Result certification performed at [facility], [address] [place] [address]. [phone] Supply Chain Manager César Bains MD. Performed At: [facility] [address] [place] [id number] Brendon Tsang Ph:[phone] Performed By: #### 1 [id number] ####[facility] (DEFAULT)[address] [place] [id number] C Urineon 09-28-2024 C Urine Mixed skin, or urogenital damián. Clinically insignificant Normal [facility] Comment on above: Performed By: #### [id number] ####[facility] (DEFAULT)[address] [place] [address] HBsAg Screen LCon 09-27-2024 HBsAg Screen LC Negative Invalid Interpretation Code Negative [facility] Comment on above: Result Comment: Perf ormed At: [facility] [address] [place], [place] [id number] J Luis Gray PhD Ph:[phone] Performed By: #### 1 [id number] ####[facility] (DEFAULT)[address] [place] [address] HIV 4th Gen Screen w Reflex LCon 09-27-2024 HIV Scr 4th Gen LC Non-Reactive Invalid Interpretation Code Non Reactive [facility] Comment on above: Result Comment: HIV- 1/HIV-2 antibodies and HIV-1 p24 antigen were NOT detected. There is no laboratory evidence of HIV infection. HIV Negative Performed At: [facility] [address] [place], [place] [id number] J Luis Gray PhD Ph:[phone] Performed By: #### 1 [id number] #### [facility] (DEFAULT) [address] [place] [id number] RPR, Rfx Qn RPR/Confirm TP L Con 09-27-2024 RPR LC Non-Reactive Invalid Interpretation Code Non Reactive [facility] Comment on above: Performed By: #### 1 [id number], [id number], [id number], [id number], [id number] ####[facility] (DEFAULT)[address] [place] [address] Rubella Antibodies, IgG LCon 09-27-2024 Rubella Antibodies, IgG LC 2.78 index Invalid Interpretation Code Immune >0.99 [facility] Comment on above: Result Comment: Non- immune <0.90 Equivocal 0.90 - 0.99 Immune >0.99 Performed At: [facility] [address] [place], [place] [id number] J Luis Gray PhD Ph:[phone] Performed By: #### 1 [id number], 3251472, 5263094, 88110275, [id number], 85972082, 4875054010, 19571910 ####[facility] (DEFAULT)[address] [place] [address]31 .Auto Diff 1on 09-26-2024 Auto Motley % 6 % Normal 04-29 [facility] Comment on above: Performed By: #### 1 0358881, 0372379, 4696346, 64450266, 3573408271, 51923540, 6671078821, 19631657 ####[facility] (DEFAULT)[address] [place] [address] 69135 Baso Abs# 0.0 x10 Normal 0.0-0.2 [facility] Comment on above: Performed By: #### 1 2134870, 5501492, 7931358, 61675012, 2971386809, 27592952, 9019240065, 84946877 ####[facility] (DEFAULT)[address] [place] [address] 42862 Basophils/100 WBC (Bld) 0.1 % Low 0.2-2.0 [facility] Comment on above: Performed By: #### 1 6405184, 9426828, 7862561, 67110375, 1453434749, 87442206, 2139179038, 83704285 ####[facility] (DEFAULT)[address] [place] [address] 78065 Eos Abs# 0.2 x10 Normal 0.0-0.4 [facility] Comment on above: Performed By: #### 1 0450027, 4215105, 9305047, 30691757, 7447624496, 09673409, 2892439920, 38920596 ####[facility] (DEFAULT)[address] [place] [address] 24751 Eosinophils/100 WBC (Bld) 2.0 % Normal 0.9-4.0 [facility] Comment on above: Performed By: #### 1 6401038, 0609395, 0665254, 90945987, 5923335965, 36560972, 9738815322, 52425205 ####[facility] (DEFAULT)[address] [place] [address] 18984 Lymph Abs# 2.0 x10 Normal 1.3-2.9 [facility] Comment on above: Performed By: #### 1 5904224, 5825132, 8021943, 74260140, 1223201619, 99483622, 3013516981, 93474303 ####[facility] (DEFAULT)[address] [place] [address] 84577 Lymphocytes/100 WBC (Bld) 26 % Normal 14-48 [facility] Comment on above: Performed By: #### 1 4711128, 8333467, 4309657, 99866122, 1342314700, 28331597, 2463941736, 26230952 ####[facility] (DEFAULT)[address] [place] [address] Motley Abs# 0.5 x10 Normal 0.0-0.8 [facility] Comment on above: Performed By: #### 1 3769049, 3412754, 8389272, 65815776, 0310475391, 43779091, 2833268353, 10402042 ####[facility] (DEFAULT)[address] [place] [address] Neut Abs# 5.1 x10 Normal 1.5-9.2 [facility] Comment on above: Performed By: #### 1 2095205, 0122635, 8380749, 17437153, 2953652349, 90025594, 4080094044, 94686483 ####[facility] (DEFAULT)[address] [place] [address] Neutrophils/100 WBC (Bld) 66 % Normal 44-88 [facility] Comment on above: Performed By: #### 1 0665299, 4785561, 5309609, 91593933, 2764554631, 62378818, 5506386390, 68411130 ####[facility] (DEFAULT)[address] [place] [address] ABORhon 09-26-2024 ABO and Rh group Nom (Bld) Hx Check: Not Found Anti-A: 4+ Anti-B: 0 Anti-D: 2+ DCon: NT A1: 0 B: 2+ ABORh Interp: A POS Invalid Interpretation Code [facility] Comment on above: Performed By: #### 1 9574334, 2675486, 8787849, 83585765, 3761134020, 67114427, 5326972111, 15503194 ####[facility] (DEFAULT)[address] [place] [address] ABSC Gelon 09-26-2024 ABSC Gel Negative Normal [facility] Comment on above: Performed By: #### 1 8220149, 3765911, 4259707, 79025254, 4155963865, 74909238, 5982254025, 98137362 ####[facility] (DEFAULT)[address] [place] [address] CBC w/ Auto Diffon 5 Erythrocyte distribution width (RBC) [Ratio] 13.2 % Normal 11.5-15.0 [facility] Comment on above: Performed By: #### 1 7202442, 9292618, 0785844, 63825728, 1724175504, 88586799, 9709003044, 90549878 #### [facility] (DEFAULT) [address] [place] [address] Hematocrit (Bld) [Volume fraction] 39.9 % Normal 33.7-40.4 [facility] Comment on above: Performed By: #### 1 4381741, 6764581, 0748688, 10369777, 1117205530, 51496308, 4549605603, 19674203 #### [facility] (DEFAULT) [address] [place] [address] Hemoglobin (Bld) [Mass/Vol] 13.9 g/dL Normal 11.3-15.9 [facility] Comment on above: Performed By: #### 1 9727352, 7289238, 2590840, 62967184, 3531479502, 09779179, 0650376180, 44174151 #### [facility] (DEFAULT) [address] [place] [address] Man Diff? Auto Invalid Interpretation Code [facility] Comment on above: Performed By: #### 1 6886936, 0624707, 3871179, 04056894, 9664940364, 39170796, 8413353255, 25689647 #### [facility] (DEFAULT) [address] [place] [address] MCH (RBC) [Entitic mass] 29 pg Normal 24-34 [facility] Comment on above: Performed By: #### 1 6581043, 5191790, 4195034, 12468944, 5069185768, 18715186, 4817017512, 24065598 #### [facility] (DEFAULT) [address] [place] [address] 83866 MCHC (RBC) [Mass/Vol] 35 g/dL Normal 26-37 [facility] Comment on above: Performed By: #### 1 5869444, 2179739, 3601025, 56979326, 0095609845, 19932393, 0312231909, 51321801 #### [facility] (DEFAULT) [address] [place] [address] MCV (RBC) [Entitic vol] 84 fL Normal 81-100 [facility] Comment on above: Performed By: #### 1 0067054, 9363996, 4813923, 73722722, 6340418530, 38218106, 5973071072, 61891725 #### [facility] (DEFAULT) [address] [place] [address] Platelet 210 x10 Normal 138-427 [facility] Comment on above: Performed By: #### 1 2607992, 9220807, 0551772, 93092346, 2021951844, 52179684, 0931123243, 78041384 #### [facility] (DEFAULT) [address] [place] [address] Platelet mean volume (Bld) [Entitic vol] 6.3 fL Normal 6.3-10.2 [facility] Comment on above: Performed By: #### 1 3855931, 8154864, 5879450, 50487425, 4297924870, 07970745, 3168736210, 41617954 #### [facility] (DEFAULT) [address] [place] [address] RBC 4.76 x10 Normal 3.70-5.30 [facility] Comment on above: Performed By: #### 1 9367499, 3105841, 1560506, 24948287, 9599709244, 39595667, 9223033064, 71043006 #### [facility] (DEFAULT) [address] [place] [address] WBC 7.8 x10 Normal 3.5-10.5 [facility] Comment on above: Performed By: #### 1 5297760, 2150488, 2224323, 51384986, 1940906092, 91011779, 7386981627, 26863153 #### [facility] (DEFAULT) [address] [place] [address] HBV surface Ag IA Qlon 09-26 Hepatitis B Surface Antigen Negative [facility] HIV 1+2 Ab+HIV1 p24 Ag IA Ql on 09-26-2024 HIV 1&2 AB/AG Non-Reactive [facility] HgbA1c Standardon 09-26-2024 .Hb 13.1 Invalid Interpretation Code [facility] Comment on above: Performed By: #### 1 9277737, 2647137, 1820268, 14962945, 5480821374, 60040099, 6534764392, 33499495 ####[facility] (DEFAULT)[address] [place] [address] .Hgb A1c 0.38 g/dL Invalid Interpretation Code [facility] Comment on above: Performed By: #### 1 0906310, 0248167, 0146645, 62396799, 0752041339, 06516413, 0563860342, 82120941 ####[facility] (DEFAULT)[address] [place] [address] Glucose [Mass/Vol] 91 mg/dL Invalid Interpretation Code [facility] Comment on above: Performed By: #### 1 1078426, 6368442, 9502969, 59434860, 6953616405, 52965487, 5811663439, 20806207 ####[facility] (DEFAULT)[address] [place] [address] HbA1c (Bld) [Mass fraction] 4.8 % 4.0 - 6.0 % [facility] Comment on above: Performed By: #### 1 0810670, 6208827, 3549358, 27149506, 7294039533, 48967566, 1923352531, 87999794 ####[facility] (DEFAULT)[address] [place] [address] No Panel Informationon 09-26 [facility] Provider Orderson 09-26-2024 Provider Orders [id number] GTIFF Normal [facility] Rubella IGG immune statuson 09-26-2024 Rubella immune IgG 2.78 [facility] T. pallidum IgG+IgM IA Ql (S )on 09-26-2024 Syphilis Non-Reactive [facility] Type and screenon 09-26-2024 Abo/Rh(D) Positive [facility] Ultrasound - Officeon 2024 [facility] HCG ( test) Ql (U)o n 09-20-2024 Interpretation and review of laboratory results Abnormal [facility] Healthcare Preg Test, Ur Positive Negative [facility] US OB TRANSVAGINALon 025 US [...] II, MD, PHD at 21-Sep-2024 08:26:46 AM [facility] Normal Not Available Comment on above: Order Comment: US OB TRANSVAGINAL No LMP recorded. Urinalysis macro (dipstick) panel (U)on 09-20-2024 Bilirubin, UA Negative Negative - 4(70) +++ mg/dL [facility] Blood, UA Negative Negative - 50 Yehuda/mcL [facility] Clarity, UA Clear [facility] Color, UA Yellow [facility] Glucose, UA Negative Negative - 2000(110) ++++ mg/dL [facility] Interpretation and review of laboratory results Normal [facility] Ketones, UA Negative Negative - 160(16) ++++ mg/dL [facility] Leukocytes, UA Trace Negative - 500+++ Kourtney/mcL [facility] Nitrite, UA Negative Negative - Positive [facility] pH, UA 6.5 5 - 9 [facility] Protein, UA Negative Negative - 1999(20) ++++ mg/dL [facility] Spec Grav, UA 1.025 1 - 1.03 [facility] Urobilinogen, UA 0.2 0.2 - 12 mg/dL [facility] Healthcare CNNURSEon 09-03-2024 CNNURSE Nurse Visit (REIAV) JAZ SANDERS ([id number]) 1995 F Date Time Provider Department 09/03/24 10:40 AM US TECH [facility] REJ REIAV During your visit today, we recorded the following information about you: Charisse Weaver APRN.BUSINESS PLANNING DIRECTOR 09/03/2024 5:42 PM Signed Jaz Sanders here [...] 2024 5:39 PM Referring Provider: SHELLY HERNANDEZ [[id number]] Allergies As of Date: 09/03/2024 (Not on File) Date Reviewed: 08/20/2024 Reviewed by: Shelly Hernandez APRN.CNP - Fully Assessed Visit Diagnosis:Early stage of (HCC) [Z34.90] Order(s):[facility] [[id number]] Order #: [id number]. #:[id number] WPOINTQty: 1 Prescriptions as of 09/03/2024 - [...] by BRADFORD DOSS on 09/03/24 Normal [facility] Examination level ultrasound on 09-03-2024 Indication Viability, Repeat Impression - Single, live, intrauterine . - An intrauterine gestational sac with a yolk sac and pole is present. - [place] rump length measurement is consistent with the [...] Read By: Bradford Doss M.D. MATERNAL MEDICINE [facility] Radiology Study observation (narrative) [facility] CNNURSEon 08-28-2024 CNNURSE Nurse Visit (REIBD) JAZ SANDERS ([id number]) 1995 F Date Time Provider Department 08/28/24 11:10 AM US TECH 2 [facility] BEAC REIBD During your visit today, we recorded the following information about you: Shelly Hernandez, MELY.BUSINESS PLANNING DIRECTOR 08/30/2024 4:36 PM Signed Jaz Lynda is [...] scan next week as scheduled Shelly Hernandez APRN.BUSINESS PLANNING DIRECTOR Mikey Torres MD 08/30/2024 4:36 PM Signed Viable ratliff IUP Size equal Date. Plan: patient to follow up with her ob for care. 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 #:[id number] WPOINTQty: 1 Prescriptions as of 08/30/2024 - [...] by MIKEY HENLEY on 08/30/24 Normal [facility] Examination level ultrasound on 08-28-2024 Indication Viability Impression - Single, live, intrauterine . - An intrauterine gestational sac with a yolk sac and embryo is present. - [place] rump length measurement is consistent with the [...] Read By: Mikey Torres M.D. MATERNAL MEDICINE [facility] Radiology Study observation (narrative) [facility] Xavier 08-24-2024 CNPN Telephone (REIBD) JAZ SANDERS ([id number]) 1995 F Date Time Provider Department 08/24/24 [...] Date Reviewed: 08/20/2024 Reviewed by: Shelly Hernandez, MELY.BUSINESS PLANNING DIRECTOR - Fully Assessed Reason for Visit: Patient Question [7797] Prescriptions as of 08/24/2024 - buPROPion SR [...] Encounter Status:Closed by MARIANNA WARD on 08/24/24 [facility] 08-23-2024 [place] Telephone (REIBD) JAZ SANDERS ([id number]) 1995 F Date Time Provider Department 08/23/24 SHELLY HERNANDEZ During your visit today, we recorded the following information about you: Angella Mccarthy 08/23/2024 10:39 AM Signed Name: Jaz Lynda called today. : 1995 (home) [phone] (cell) Reason for call: pt called today informing the nurse she has been experiencing pain of level 4 from 1-10. Pt has been experiencing pain for 2 day. 5 weeks today. The patients preferred pharmacy has been captured for this encounter? Angella Morillo [employer] Shelly Hernandez APRN.[facility] 08/24/2024 5:58 PM Signed spoke with [...] slot. Call to patient needed: titi Morillo [employer], Lana 08/25/2024 8:37 AM Signed Pt is scheduled on 09/03/2024. Shelly Hernandez APRN.CNP 08/27/2024 11:51 AM Signed Addended by: SHELLY HERNANDEZ on: 08/27/2024 11:51 AM Modules accepted: Orders Allergies As of Date: 08/23/2024 (Not on File) Date Reviewed: 08/20/2024 Reviewed by: Shelly Hernandez APRN.CNP - Fully Assessed Reason for Visit: Pain [78] Primary Visit Diagnosis:Early stage of (HCC) [Z34.90] Order(s):[facility] [[id number]] Order #: [id number]: 1 FUTURE Prescriptions as of 08/27/2024 - [...] Coding Summaryon 08-22-2024 Coding Summary HTMLBase 64 HhczdwkgSPy2gDc+PGhlYWQ +FN0VNJNqI73unHNszM0wG5 NMTElOSywgQVBQTElOSyIgb sWcEW9dwJSjJZGw IC8+PE5nAOKuXtsccQYgp9S 3yYD4W29lys4sIMonnRI8GL EnWcSvywqsg5sptFa7YJrnM mluOyBt YMOcuF52BSB3mA09Cz11bQK raFAbn0kamZg5VzSuMUGwWC J8jVuoCCoto7CtASSmN39kx CTkm1N5 DOLyyHbrnNMjJiGckQB4uL0 lHZyrhbzfv2ovbacjDkb3vf 14iYWdo2X3mMG4Z9SairT4O GJvbGQg EgzqiUWNcX9ypqbsb8azpzy aBbByQGGtXBt3RGg3EVOdpL rgWiAeUC02ZFU0SWXkzrMyI 2FsLWFs lGlpPaB3b3J9Zr3JW8GAPyb zP3QPFKEHVGifgLP+PC90cj 82P4TfDdfwTqk5QQAoTTN7a FG4hF4e CCDhXZicx5R4hVL5N8KqymR ule8eo6fdHDEmGHtqA56vcF Sld4U1NXNuhLZ9QOGmkLgoL iBzaG93 Oyc+UJWcqBeec7DvDgkls8o qz3wujJb2LygtEZEqtaQavZ rcDXO3n2PrLw1qNEQtdTC6m HG7lS8n GxLnHmC6MVbeJ634PsAgfYK jCxryZ52eP1LzsVE+PHRyPj q2ZCNskYkwSY7cK8WjICQrc mctbGVm gLxmKM5lLBRiypjlPNMxxJ4 aKVPgR6f7MzDxEmC9BThsY8 EhKGTqcyioVa29qU0aWzIhO tF1QYpd M7TksgX6LBVapXIgNYuzWZI 2T45dd6F2ICRkKRIyDVS9kQ N8oA2kiPeurhimfCGgrPege mVydGlj FXeqJPuhN512SOAdgBppZrD vZGluZyBEYXRlOiAgMDUvMD cvMjAyNTwvdGQ+SJNwPGH5g WxlPSAn lWDwXIxvPs9lmBdarDgmNZ1 zNALeouwdJQXdiY1nCMEcoK AeaHzbLR8eWELulrdlc016E iAxMHB0 WKCbfDKlD8DvwB8cFlFrOVL pFYHoI0RvjCFhVCxkS434GL hfNpQ9VXOuleSvU2PgYSLwt WduOiB0 k3U8Ol2Iu2RhvrjsD6FqgWZ hIvTrVfbxRYs8F3GeBsrdqM I+VI71LFBcIN15MId5EFI9a WxlPSdi BISuN5MvmP6tUeIoTHXjWMC kOyc+PHRhYmxlIHdpZHRoPS pwQSVoAlRikWvvIN7lDh2tR GVyLWNv zPvjgCNrNuRri4maIUNqBEl fVQ1evZykC7YqgPY3HSWyt4 a5Xs31H14iL6UpdIE+PGNvb JL1kGL1 bI2oEuFeIsQ0TMgmC341CdW ajWApHczqu7xmq8pzsDp2Ca K7SRUscwVuwKbnOSC9z9FeO k68S42c IHdpZHRoPSIxNSUiIHZhbGl fsg1rgD1pQm5+CDFfuXO6xP P5hQ8nTkOqGcY0KQfsT446R nRvcCIv Rzdhu1ywa8bukCi8AmIaFLE soeGpyKmdMXM3s2FaIi69L2 DrpGqhv9PqFuj9qz43wSNxu 3K1eZE6 E6UpMAAvxxqioBJtxEmzFM9 tZRHouygvFKCtdU2cRGZbR2 i5QgHnHqC2UQycI8CokgZ2E GJvbGQg DGMfmWKFcT1wzlnoa8bzdbb fNmCjXTHzFGd1DPq1VHNyyX jzOtYvLZT6GlI4QIB7lQZzi A7kzLxf ypefpW8aJjz+XOP5eQHubEB ORY2bLehlmEW+ZLHnCIF1nO kjEEylVUPcxG1uDIOnX7c1T iAwLjA1 AUruP2RhifT5MJOhrSZcKMS yaANXcM3rwunty3ptsojtMb NpQACqPNc4EFe9ZMQxtJlwA iBsZWZ0 OoE2UCH3sKIxyR5qfHsoiaa vmD0mWdv+AtgivBicFRC3QD m3P8QsKzt2NAVpoAcoFE0rk GFkZGlu Oq6ywYglyHboKR9bVCSrrpi mx521GfJwh9bsKWVgvHDaOU aiNED2V69mh6X1SOWnIIFtR PF1sFP8 pM0tgQjgplxcrHVctGtelrY abOuhXWvkFIrzA273GUZdjO kmQkRwCBt9J3VqTag9QNJnu AbmTW6d kPUxXJjgOw4kjStjxKljRT2 uVFKuqgayf927IsDhg0qbEJ VguVMaRVrzSWP6N68wr2U9J CMwMDAw EIN6uFJ6yW3qwDicemoukMU mdDsgdmVydGljYWwtYWxpZ2 92ADWziSlqNaFfdAi6K4DeU ti0BQMb aChlHQ8auCXwOKkjAy4lzJk qlYkxJG3lWHFfwswgs963Xp Jid9jeFOXsdQEgJZkzTLL6W 48xb5B0 LGYuDXPtVGG2zKK0bL1aaPx nbjogbGVmdDsgdmVydGljYW saSXtlG163ZXOpiFmhQrUwk GllbnQg SAwvGPk4Q7EkBkvmjIO+PC9 0AANbZL48jDQtuITuf9gghK o5XpYcAUPnVCZ2zKtgCErnk 3JkZXIt I86ezSCdc2J6SVRgxYxpkOV dLeEybTC1bY7bWCwxxpjaw1 zworcnUkjbx5opfq05yQ34T 29sIHdp ZHRoPSIzMCUiIHZhbGlnbj0 bbM5uIr9+IUKglLD1gLE7cX 9cQTLpBrK4UMwdA703AdIuz CIvPjxj l1zqt5tzyZf8HhF6HJExvxI yyHedBYW5m9XbSe81Y20rVZ dpZHRoPSIyMCUiIHZhbGlnb h3ztD7t Ii8+WTImfMI3bPD0oZ1hFpG fWkM1NOmjO313GxNemSAdLn ovE24wF1XnfMF+UFSnZre3W CBzdHls LK5qpPZyHKnoBb8kZNK2XeT qEeGnZTusO6EaHZPvwsgcfa uduXG0YKSiPVJawS31Il0zi DogMTBw hNNQsZ3ggmffj4unegpzKzB uNFNbISb1JUj3LVLbhStdPt DhIWQ0GwZ5OJH0vTEfiS1km Glnbjog gD4rF2UsUJQxofeqEx57tF0 eOrJzAtK1SQgmRhi+TUNDQU 5OLCBIRUFUSEVSIEVMSVpBQ kVUSDwv dGQ+WGZaJEO5nStuFSbpJXX xpG9hLEGaD4r3NxYnVzI6ZM ajY7ZyJXAevlerNt50vP2vQ iAwLjA1 UOuxM3FqsdJ6WOIojWWrWSs hGII0P49aa5E9AXPfTYBiSI I4pOT6fX9gwYyaolvziMIuf DsgdmVy jVomIMgkOEaaA506JISupPk eTlOzItZ1JfM0AWP9M8SeXp z5KMFyzHhmIE2gzEIuYQxpK r6mfFez wBfaZJ1uIOPkysbtIHStwC9 pVQTmhUXflXhwFR3bJTVjrc kem452DkHnVJQ4CDGxmTSxD 5GwjA5q BfUdSHQpTMTpY8SahZZhUUb eM726WBhpUiN1KFHkpzAlI3 PzHFUqtLjiFxY1i2O8Tz0jI SBZZWFy czwvdGQ+EUSiRHS8dYtyDFb mZCXauX4zGPVkT9z0PgQuNr D6HSiiJ0UpVGPzltssBx72s G6zDfCh JjC9CBtvP5XxksX6HUZecOX dGFtwZIP0P00ay5S5DNYmLW FtTLB2sGW4tG2pxXiokfaqf GVmdDsg zvLmmSvoOUzqYEclV391XYF vcDsnPkZFTUFMRTwvdGQ+PH RnDXI6zBuwVWfuOXTijI0wA MHrB1d9 WbOvWqB7IRdnG6WcHSVazab fSm01gY9jMpCoBbE1PRgxX6 NsvlH2PKHkoWVgJPqaPRX8G 46kb9D4 ZFHjOEGvVCB6iTL7jO7ntKo nbjogbGVmdDsgdmVydGljYW niDGapM200BZYcxRtkXf9BR Z13TX68 Y0RxMwdvsIDtaRT+PHRhYmx lIHdpZHRoPScxMDAlJyBzdH gcYX3qUt7iUYAsLHVewEuic HNlOiBj f1czKEUrFZnxUJ0fdOdaA7T kcEB8MEUgb9u2Oh12Q18iG2 JvdXA+FDUuzTK0eKV2aD2zR zAlIiB2 FVpeD540LiZpkKGcPtzye8b wd6tonRz9MyJqAPIuhnIdrZ yfUNM6g3ZfGa72J41lAXwvE HRoPSIy KUCvAJIemRifvb3tsM9sAc8 +GAPqnKF3cAN9tL8lAlStEv D6YJxzS732FpPfyETeSdowT 40nT4Vg dXA+EPIcDyv1MNEjlPjoQG0 yeXYlOVvjCu8vXKF4IcYmAl GlBCzuA8TpKNOzrllqyorwl KU7XZOd WLZlsG06Et4dnMoxKv5uRRY rGWM3OCMigQCsT1UdcE8wWc CcJSYrXHNdA9CbzCBaEQqpI 246IGxl AiB1WRQdaqYaT5IgTSDmeLf rDmR0y9P3To6UxFuyoEJoLR 1mQbDdHUr0O9SwCii3SLUng DswOP7s xPVsLLobTo6ynVlntHbdAG8 bMJAsaixvw220ZeXsi2ucZB JuxRHnUJooCCS6A88kt5F4A CMwMDAw CXA8qFV2wE3fgZzlumahbQI mdDsgdmVydGljYWwtYWxpZ2 58GYFyuTjzYyPJBfj3P7HqW ef5GRWy vVkaPQ6cpJXkVWmgQe3bqKn tyMqjPH6wVBUvuboqw895Hc Xle3kpMNRulDGwHGibYPB8K 92qy2H1 DAWpPDLzJPC1sFH8eX5xvLz nbjogbGVmdDsgdmVydGljYW icUFriQ604YSCnpVvjMq1KY mg1N2If Enn7HJCfiMpwFP5rlXGvFYe cQj8hxJznxOolBY7tSOQkul yyq172SzSgu9muYFPhyIHbL GltZXM7 H56eu9J8GAAiWLBfTKH1nVE 8oU8tqXowewgvrRSktFxibt YyuCmpLXmcYJcoR830GSMzw DsnPlBh eWVyOjwvdGQ+OW81dg78K8X hZisbOkq1KOOnFHF3aVU9aV 8mHSFsVXhbe3M0hKJ1S1Adk gPssc0b b2x (more content not included)... [facility] Coding Summaryon 08-20-2024 Coding Summary HTMLBase 64 AjuusbxdSLi0wMv+PGhlYWQ +JJ0HKTAxQ51fmJUyyY1mU7 NMTElOSywgQVBQTElOSyIgb tHvFP4pgLJuZZWu IC8+HX3hRHViXgyudYYma6A 7yCH7Y73bmq4fIZyueCO9PN CpYmSugudqh8epgGd8YNzeD mluOyBt JXNisU00XGW6bO89Oh77hAU mxEZkp9wosEv4YuHiPWDoPS H2gPbxUQofo9WkTZUeB30qw KSjj1M8 QKDrtOvnrVPyFxAqiBE0lJ7 gLLtgxxibz0whoagnYjx2mh 03vOZhq2Q5pWW8G2RrjtQ5E GJvbGQg IwnggVAOxC5jbwwey1djaze zUaJbNBKcXCj8SHc4GNItlU hzIcTeXU96OKT4NXKurcPqE 2FsLWFs wElcUeK5n1M4Yi6OV6FATvj xP7SQVGCMWWqbaHF+PC90cj 80G2MkIkusFfq4HJMnWAQ5y HW3dU3q NQPySAlwj3W7tBX3O3NoqmB ghy0aa3nqQCEuGHtjW31wnZ Xrt6T0DIJvyFR4KITkdCfuD iBzaG93 Oyc+BSGviYsgt1YoEaycz3l qu7pddSd4PvpaMOFiunQlcM uyGBC1x0BjBl7wAZBwgFR0s MP3iO1p UaStXnC7KLurH700FnEfrRD iGqhwB72gB1MujPS+PHRyPj m1ONMjpEvaJE5bQ4SiTSOpw mctbGVm jEtzFH3xHSZhygybNRAnbY9 yEJOqX2i4LqJzOcU4VPquM7 ElPYDefnkmDx61iC7lKyPgV kM0MOcu E9PuegD9NDEwaNXmHRhgGQG 9T51iz0F7IFWiSTLzTXS7eQ M1iA3rrWvahkaouIVlkUnyi mVydGlj ZTazZXmhC922ZWFssFpdVzO vZGluZyBEYXRlOiAgMDUvMD UvMjAyNTwvdGQ+HGHdUOK3x WxlPSAn zCBmPAyhAo3bmEssvFtgWI3 mZYHvhnfbVUZlhJ8kCOMgjN AlmHoiZF8uBQFuftemp397Q iAxMHB0 KGMiiIIgZ2TnyB8yUyLkCRS cRMJnU3FpyICgTVgpG269QT rcPdQ4VSPsmjMsP3IxJZDeh WduOiB0 r1Q5At0Da1NmfowsW4XxmXF cUwJpNrvlNWz9H6IkQmbdlH I+ZM12MODdUX89ZNy1RUR2v WxlPSdi ZOHbZ6WrbV9fRlXwOAWfOSE kOyc+PHRhYmxlIHdpZHRoPS jtRLDeFeFlyCpfZF4oOd9nC GVyLWNv yBruiHIeGxPfk0ujNJRqHBu nYD5stCtmG2RlfHD0KCSuv2 m3Ll27O55mD5XxwSH+PGNvb ET7rDB8 fW9sXsYvQeA9GKrhE396WdY ruVZuMlmdf0vst8kjcCa1Nx Z8IGFqknDpfKfgRKJ8t1QzI b13S22m IHdpZHRoPSIxNSUiIHZhbGl nqj2nsS4gFx5+WAPplZO7yD W3pC5rDfMhKfE1HLzvC508K nRvcCIv Jdjox8bip6chuDd6TaThPPA dmdXaaKwsOYF1i6ZrQk51P5 SjoSorl0MwBhp4ml92eYWkz 8J1aKN9 T0DtGJNonozfuSRdaLcsNW2 bRYXrjwhnJLIpjP7wCGIrC3 b4FfQlNkZ4RRsuH0PiaiD7Q GJvbGQg SPUbrJSNrR2zbthuc5cjerq fLaWoYZSgPUu0QJt7NAIylK eyLsMpIYU8OyJ3GDK1zEOpe W5afOst hfitaM8rTsw+LCS1hQVpvVI LLL2mUtroqLN+OBNvINU7pX wcJNwmBSHwgS7oIWQcF9a7C iAwLjA1 JInfQ3WzmxT8VPQuqFOoWDP agAWXqT8iedhol0tchigaDg NvKCOoAWx4QUb5AQOfgXluV iBsZWZ0 LcM1XQR4yAGxtA1odEyrvgn cpU0kQnb+CpszeXsyOPX1AJ r1X6EqOlc8DWRunPrdZN6zd GFkZGlu Fy4zvArzkSipMF1tQXEcnfa os036BsKfb7xkZOJooKJcCC egOCQ0Q46gd6V8PUUoNENrW MR8mAL4 dL0oxAgzdqakaOGigLblsgC jvTonMAaeREieX917DOXqkY waVgGuZCp8S9CwCnf5SUIgs RwnUY2f fCKaORgbHv6flItubIzlHZ7 iGENlvkktv658NdYjd9apPV QshVQoVYneFET6Y58yn0R8G CMwMDAw GXH9hFO5lW1mfMfgocymsYP mdDsgdmVydGljYWwtYWxpZ2 58DAVbdKvoAiSmkCa2M8XcN wh4TGCh wExlRZ8dlHBxICoaOv7iaAn grPjyMO5qQERzywbso785Cu Mrl6myYSUcmMCqYUqgGSX1Y 11hm0N6 LCBkWFJyBDJ5gDZ4yQ7bkCv nbjogbGVmdDsgdmVydGljYW cxFAshO073WNNohLxeRjZwn GllbnQg GWwiAGp4Q3EcIwaejAW+PC9 3VGUpEH40iUVevUYrm7yokR d2UfPcCTSwWMQ1tRdxHAzfp 3JkZXIt H40fsKKcc6L4PBPhvChdvEL rAcTyuAZ4jL4qTMliijvsd3 gznjahDcmcp7zjxu23eD80V 29sIHdp ZHRoPSIzMCUiIHZhbGlnbj0 ziC4mKa2+WTUuaCK0cPJ9qK 2wWUCiDpA3HYuoG573ZrFyw CIvPjxj c1veu6wfqXi2BcG4QSDeknV lvAdgWBK0w9IcTj70D67kGW dpZHRoPSIyMCUiIHZhbGlnb e0swD5f Ii8+RGJnwII4yBT9mX0hZdO nNrA7SXqnE069OqAeaCIeXs jeM56lX2CxwLZ+DMBdCfq5H CBzdHls DP8cmFXsWXzeWi2lWSB6HiR nJmKzCAtxL4AqHBItmzulev gxxMU9SRZcDBSvjK12Mk6eu DogMTBw uDADrC3sjjded3lactdtTtN mBPGtMSy0AAn5TGYfyBfxRk GdNDE0TvK7ICF2wKXszX5vk Glnbjog dJ1eD3YcTYBlxyfxPt10wP3 vEhCaYtK5CPhbCdu+TUNDQU 5OLCBIRUFUSEVSIEVMSVpBQ kVUSDwv dGQ+AWKiHSX7vRjiXAvwHJL bmT5oCAFtV5y1GbJjCiP1EM enP0QyYYBriytdBx66eM3yN iAwLjA1 ISorT2FbfoV2ZIDxhYQgFHt cPNZ3S89lj1U7USOnOPAnRX V8qIT6rK3bpKsewhtaoFHkp DsgdmVy sKxmUGsgUJjzO401PMRcsTb gNuTtTyC9PtE6CSW7R8MdUa d7ZILiqTmuCI4qlWBgYSucR g2rgJlu yOnuJR0qCTGuqznwVPHfrA0 rIPWuzHHpoPmyXZ0vHSCwus tpq213FmRoSVM5WOMatASiH 2QydD6t KyPrJHJtSRGoJ1SnwVHhXTo hX568RXhlKkW7MWFqqpDzD5 KtSEPwrOonIrU0m3M3Bz7aF SBZZWFy czwvdGQ+WCEpERB9kJucVRr tLSDjiR6xTWIlK4u2NgYrLq S8WMsdG2BqVCDdjyftBu61l P6rTeTe LxT5IMtkG0MxcdN2QSAchQI eWTzpRPJ8V11vz8G3AWLtSS PrHMI3lRM9qN4seRjgvyhkv GVmdDsg mwAfkXwtCQspBIieK399XWP vcDsnPkZFTUFMRTwvdGQ+PH VzZHE6kYerQKtiNDLemG0wQ RLoX9s8 UrGtKfA5YNbzC1PvEHQfxba sXp66nT8tGaEoDeF5RBqgS4 TocvN1VLVxzYVpTQteDRK9L 88zz8Y1 WTXpJXUjOMM8jUJ2cH7eaXa nbjogbGVmdDsgdmVydGljYW stUWxcZ263FYTwaHfgYr9TV U19YV33 K7BhRelcbHXtuIK+PHRhYmx lIHdpZHRoPScxMDAlJyBzdH fxWT4dDi0cXFSrQRNtjEiqx HNlOiBj g9leJHUeKUlwJX5yxLaeE3M bmSF4QNKor5g2Cj40K93bP7 JvdXA+IZKpmIN3jZY7wK1rP zAlIiB2 BGelN515RwPuvGOnDvrue0i ev2dhwTb5EdVmLTEfyePufD gvUMY4p8TtBx18S71zRXofY HRoPSIy NBUvJPLsnPphvf9fdD5wLz0 +XAVhdRC9fAB3yK9yIsYcJk E2QImgW999IlOhuZTeXiplR 23dG5Vt dXA+UDOmZyo7PFOhnLdyID2 vhRZmCQasAu9uBJP0ShPrWc NoRTtnJ7VoUBJfdfueazqha PB9HCUr UIOtxQ25Wn1ptRqjUw8pCNQ vXGC7RILylBRgZ2MyuX3rGn OmFWVlABAaN9WfkZOfOHrgU 246IGxl IsU0GJTureBcK8AwYRJeaXc lDvP4z6V3Au0LpHdpkCFeBH 9cIvIeLMu4Z4BiCpe8FWFqt FdsNV9v aNHgAHetGn0acXvukZrfTM0 uZUKklyxxw300DxSkj3krEO QpjLQaWVliBPR9S93fq3A2H CMwMDAw KJX3rJF8nY0muWgkkgeyjTY mdDsgdmVydGljYWwtYWxpZ2 13HPDlhCteCkLFXet5Z5SxR mf1AKAc oPzjHA3ggPPvICqiTy8uuUp xdNiqQI2yDZJcrxirg204Lp Dhl0uqIFZznIPpOZdaCFI3P 76ui0I9 AUVjLNTwZML1cCS3kJ1mvDr nbjogbGVmdDsgdmVydGljYW byYFcaZ185MNKdbOthTm3DQ uc2J7Ma Kli7DJBafBvaUV8pbAEjPEv iVl9trCvijHgvTG1pHHVdpr bqd318ToHes6nuDYCjeHUaR GltZXM7 R84oj1O1XJJsIGYhHBO6hBS 1gG1zhEkyffrsgZUsbVyyjy LnlCwcKEfvPYfaD646UOFmn DsnPlBh eWVyOjwvdGQ+AP81ta81T2A qIdqhGte4DKUmYAN2rYS7jN 8wPONgXRoad8Q4fJB8W4Xnd lKzat0y b2x (more content not included)... [facility] Coding Summary HTMLBase 64 VkkuscqvFYe5kGl+PGhlYWQ +HR3QLWSqD49csBXylP0aE8 NMTElOSywgQVBQTElOSyIgb oOpYQ8quLVxXLMo IC8+IT6jEJYgKlpdeNPut6J 6cKZ0T86ktp9tGRwpvBM2NA NnPwFzsszrz5vewLk9LOupB mluOyBt NDCjhU09JDP1sB97We77xHU ikWPcv0qjiLy2NoOxZFUpVI P1sJcsUOgcm5HmDRPjT44qn UDfx0M9 KTSzeMvoaPPmLeGgaQF2oT6 fBXiejdmwq1vhbwmzQue6bn 96nCGax9Z9nEX5F2LlxeD1B GJvbGQg CpovhILQgI0nzzfcu3xtrib hVsNjIBVqIMk8TVa9HHDceD ykHeFoDO48PNP4GQJpzdZuT 2FsLWFs nKgkDtT1r1I0Rz7VE7HTZab zX2HICWKXYFfwmYC+PC90cj 59A3KcCyyiDzp3QBLrSKI8n CN2pJ8k VBOxSWutk8E3gKL6R1ZkjgC vmr5so5xjIKVeMXbyA77vbO Kln0U7PZSmhYT0NMWjcNipF iBzaG93 Oyc+HZDalYaql4SpHbqfk9o rq9sbvBe8DhtbMJOukjKqkD rgIAU3z6SbUr8tCRSeeOP8k FX7nM0c TcGwHzP7ZSbcF602TrIqvWC iPttbR73qA9BryHR+PHRyPj y5OBFwnLdgJX0nV1JbETDnq mctbGVm nQiwVI5uKOCeqsnrGBFxaW6 sZRFaF5b8OaMuYzV8RYflT8 UaRYEdadwoMn30sT0lIwBpJ dC3XOwr T3QohnH7RTPevFOhJJgcRZS 0R53no0C0PVJvKAKdTUT3qX P0uR6dvFhnuvuqlJSypYavm mVydGlj LPmxTThvS217ACQbkEcmGyP vZGluZyBEYXRlOiAgMDUvMD UvMjAyNTwvdGQ+PRTzVSO3b WxlPSAn oPLdRDlaYj6gkFwwgUvaBX5 tYOEbfxpuMHNvwT7eWFLqjB LqfVqaZI5qPZAnjiaxc992W iAxMHB0 GHBenLXsF5FsgA7jIiLlZPV lOSDqF8DsnLBxSFdqM925JB lkBvA4DHClpuLgS4KfEKNcj WduOiB0 f4A5Qm7Xc8EeevzmK6SnwFA iZoSbJazsCJc8Q1ZlFawhhL I+YO00NQDfXW61WVk9VSM5y WxlPSdi TEXkZ2TglB5iVmCrMYWjKCS kOyc+PHRhYmxlIHdpZHRoPS liFOCfSkIwyWftXQ8mVa1qH GVyLWNv iUfjkVZvIpJsi4jpYMCqUEg kIM4czButW2FpoYM1ESDbt8 a0Rj14W48uW3ZraFZ+PGNvb ZK9dKW9 zC6vUbIdYlF2XJqnO522UhY arTDrOgrll4ykz1vkaAz5Rc A3XPLtnfSimVgbDMX7f4QiZ v85K31p IHdpZHRoPSIxNSUiIHZhbGl tbb1njH3fVk2+NSDcsYM6wU A7dF9zQjFbVwO5CQvyJ872S nRvcCIv Wnozk7efy8hurRb8MgJxWKF qjjSuoSgwDMI4p8OeBl47F5 ZquZzam0OzKfx0rf27gZHnx 1T8kYE1 D0QiUCHejczsqMSkpAnpKO8 hGFVztoydZIAmpR3wJCPxF8 n3VkVfWnP5PSnuY5BfpjL0C GJvbGQg JNEzkPEHcN1qirwey8ztubx cYwHkDKXzVOu9WSa8MOYlgY gxSaGoSWA7YtN8IVD7xHRcj Z5vjOnb hgzchI6fCrv+NGE1hKCywAB BNN6fXjpauNS+UDWmZUD6pB gvBAyaCQTxrE6nNWWzB7v4S iAwLjA1 TQzsC2RqngW0UFEuoTLnMFP ftYPGdH2oiuvpo6zommmfXj TzHEUvQFc8UIh1CXXgmCkgO iBsZWZ0 AkV1BFU1iTYqhA8tfYafcyz ntJ3hPoe+YpugmCxfQRL0IO c4M0OfGhl9WCZtaQfePC0td GFkZGlu Ie4wqTyuhPukLA7nDTMwyha tp164FiXtn6bqYRGurHYcSJ jsKDJ8C72qn6Y3VJYyEAOrU YD5aWG8 yN7bvYlfezjikGNooQfefvL suIpiCEdgEEceN323YHXxpF nlJtXpGUe6A6VwPvk3EDWda EktPZ1h fSVpFPfnOb6nrCxlvGnbSH6 jXFDtqtwwx932KxVfc5tqYI KviKQyKWuwSVP2W57qp4Y8Y CMwMDAw SFQ0xWP6fT1jzJthexaugAJ mdDsgdmVydGljYWwtYWxpZ2 06BHQwlJrrIdWpmCl5K3UbP jd6FDXv rWqpNA0tePUwWZxcMv2hqBn ftTbyHS6iCEDjppsgs974Ur Rtu2alGKVkfRYiTPzlARW5G 56tx4J2 BLKhAOZkXGF2qGP7vC9vaJj nbjogbGVmdDsgdmVydGljYW mhWQimA874ONYdnVefTkJdm GllbnQg HJbbAJn5U5UzBpaksNS+PC9 0LIXnYA61qMVekVGie6vcrC f8AwZuTQMyWBO0fTlmUBbui 3JkZXIt Z26kuIIgx3I5EVTjyIeyjCF tMrTtkCQ5aE3cZVbiqmttm6 ffrgkbMeogv9iywz43wG47I 29sIHdp ZHRoPSIzMCUiIHZhbGlnbj0 cqB5uTf7+QTYvhWS8sPS4xY 5qXMXwWtF2RYscQ015OmYtb CIvPjxj i6xnr2uetKr8KhT1GBIjnpC spQklLBB6q9UdYh25W69eOS dpZHRoPSIyMCUiIHZhbGlnb a4zqV3b Ii8+BBIciRE7cRU4qX3mUwL zRnU6XFjgD047VcPpdSNgMn qrE87sK7MthHX+NGPlXru2A CBzdHls NI9nsGQhWZukRq2yPUY1GaL dCpQlOGfcN2JxEKGgsedzie jgbTX4JAEfQZHtgK67Su5co DogMTBw dZFWnI9euifhn4lnaqojMyW zLIJvKIu5GOo2NJPmnZknIr YmPVH1WpG3NDT8jGBhwN4dp Glnbjog oK6aU5GpANYdwyxiHg50aN1 jEpQuRiQ3MOxcTwt+TUNDQU 5OLCBIRUFUSEVSIEVMSVpBQ kVUSDwv dGQ+CAImHFK4xVwgHIfuTIS whR5uSBYuO1m5EuXoZqJ1PL aeL4VsXRUwmftoWc00qK5dG iAwLjA1 MQjxQ7EfrlM9BAPnhKVoNMe sOEJ7Z41yp4D1PUZqSIIgOE P0eKD6uX1czVlrudkotDOsk DsgdmVy xNxvJRwjKWheA684UTPojUm xWbFvTvK0TvT9UXB8D7XePo q8APUmnOylTU9ikZWsYXzpQ z2kmBhs mFzcEQ2sVPVefyiiCUDdmG0 tXNMjeHLbqWffLQ2rMQXpnv ixv677UoBuNTA9YYKupEJkA 8WqjI6f DoUlJGWoIYHfH1TwwUCsSHi nY347EPrpJbY2CCGlfdEoU0 JuSFVdqDbaKsC7h9S5Jr2qV SBZZWFy czwvdGQ+QJIhEBF8sJueAEr rFDUpiF1eGNEaL8v2PaIqFp B2RWfhB6SdARRpwrejOb01m K4bOzSs DvI9CLgdC6FrrqF9PKToyUH yZFlvDNH1P85zz8E9YLIiGU BnGYH0qFV7kM1gxXedwjfnc GVmdDsg vjQfgWneORkwHOvjP272VPY vcDsnPkZFTUFMRTwvdGQ+PH CxXCV0kViwKRpjJWFimB5cJ HKqI7m6 DcIhPyJ3IRckZ9VvAFHyjew qPq15rU2wXnNpTuJ4JGdxZ6 EwhbS0STRqwFYmRIiaFVB1K 26uf8B5 RINzFDRwGZM8yOQ0xT4lbBh nbjogbGVmdDsgdmVydGljYW zkCDqdG385HWNayJxtAl2IL B31PP22 O9ZxPqepmYMtdUY+PHRhYmx lIHdpZHRoPScxMDAlJyBzdH daKX1jVo8uVWGgSWFscUzmw HNlOiBj r4mjUIVxGLloDB1rcPhyZ7Q ntUQ9WLWce8l8Ho00Q89mQ7 JvdXA+TSBokSE6eKP8gL3vI zAlIiB2 QTmzU965FeGfdKTeYxnve9w dq0lxtMo2HuMjFWRloxYfoV xtNZL7q4HnAw13E02hEYtnF HRoPSIy KCEaQSTxoWsqec9mcF4jTn3 +CUOatDJ6gYL9fN6rPuUkYx P7NVxhG609XmJgnOCyFnawA 97zQ6Pg dXA+MXNyFlf3PCYzdXivDC1 znJVySSgfWo9mOEY8WmTvVa YvWHuwE2BzOBQklvgnapgrh UY2VQQo NPPgzZ87Tj0ezMjoCb5uALH fGWC5MRZycQMnL9PfyB9qQo XsVCNnPQLpK9SsvGHlALpsZ 246IGxl TlG1SHOqlrCfF8SyXLLmwYm jSgZ9q9E9Dj3KuOdonWQpCU 5lRcXjRRt8A9AdQpq6ESVus LmsZS9n qKBpUBtkHx5clSqmtRxsXG6 jDEFrtvfdi681JiDoi5ctLL JmyWZsVXagFUS8C43aw7X3C CMwMDAw XHL9lTC6oZ1spUduvthduJK mdDsgdmVydGljYWwtYWxpZ2 28JJOmyBdjGnHBOtf4V3PwH wl0SLBa jUemIV3hcZWaVOaeCc2itFc mkTnxMM3gXSJifkskq469Ta Uue4keOCUjkKMmMKlmWYG1E 39su1Y1 UXUeJUWcSIH1vYA6yH1ufNi nbjogbGVmdDsgdmVydGljYW dqGZvvI736STZghIkwXz8WK dq4V9Ss Geq0DCBtlTmbBS7hfYUjGCt gFo4mrLdxrBklXU9aAUNqws rnw621VeKgx3kwRFPdpIWrN GltZXM7 N07cj0N9LYFjVTYvPKB4gVB 8aQ7lhUegjtfunKSnzLtxld GgjXeaUTsvVWknC164HYCrm DsnPlBh eWVyOjwvdGQ+CF98uk88X1J pWhcpOlj3CAHyJEG0bBH6lB 5nBEWeLXvrb2W3kWT5U8Nct yRows9i b2x (more content not included)... [facility] Provider [place] 08-17-2024 Provider Orders [id number]#1.00O TGTIFF [facility] hCG Quantitativeon hCG Quantitative 362.7 mIU/mL High 0.0-0.6 [facility] Comment on above: Result Comment: Post -Menopausal Reference Range is: 0.1-11.6 mIU/mL Performed By: #### [id number] #### [facility] (DEFAULT) [address] [place] [id number] [facility] 08-16-2024 [place] Telephone (REIBD) JAZ SANDERS ([id number]) 1995 F Date Time Provider Department 08/16/24 SHELLY HERNANDEZ During your visit today, we recorded the following information about you: Angella Mccarthy 08/16/2024 12:31 PM Signed Name: Jaz Sanders called today. : 1995 (home) [phone] (cell) Reason for call: pt called that she got positive test, she has been having having cramping since last night , it happens every hours for couple minutes. The patients preferred pharmacy has been captured for this encounter? yes Angella Morillo Broom BuilderDaniel Li APRN.[facility] 08/16/2024 5:28 PM Signed Called patient back to phone number listed in Epic-no answer. Lm for patient to look out for [employer] message. Daniel Hanna APRN.JARROD August 16, 2024 5:15 PM Allergies As of Date: 08/16/2024 (Not on File) Date Reviewed: 05/09/2024 Reviewed by: Shelly Hernandez APRN.BUSINESS PLANNING DIRECTOR - Fully Assessed Reason for Visit: positive for [Other] Primary Visit Diagnosis: resulting from assisted reproductive technology in first trimester ([facility]) [O09.811] Prescriptions as of 08/16/2024 - naltrexone [...] Encounter Status:Closed by DANIEL HANNA on 08/16/24 [facility] 08-15-2024 JARRODN Telephone (REIBD) JAZ SANDERS ([id number]) 1995 F Date Time Provider Department 08/15/24 [...] Date Reviewed: 05/09/2024 Reviewed by: Shelly Hernandez, COMMERCIAL SALES CONSULTANT.BUSINESS PLANNING DIRECTOR - Fully Assessed Reason for Visit: Patient [...] by SHELLY HERNANDEZ on 08/15/24 Normal [facility] Provider [place] 08-15-2024 Provider Orders [id number]#1.00O TGTIFF [facility] hCG Quantitativeon hCG Quantitative 160.6 mIU/mL High 0.0-0.6 [facility] Comment on above: Result Comment: Post -Menopausal Reference Range is: 0.1-11.6 mIU/mL Performed By: #### 7 [id number] #### [facility] (DEFAULT) [address] [place] [address] [place] 08-13-2024 JARRODN Telephone (REIBD) JAZ SANDERS ([id number]) 1995 F Date Time Provider Department 08/13/24 SHELLY HERNANDEZ During your visit today, we recorded the following information about you: Marianna Ward RN 08/13/2024 11:19 AM Signed Letters sent. sent to patient Marianna Ward RN August 13, 2024 11:19 AM Allergies As of Date: 08/13/2024 (Not on File) Date Reviewed: 05/09/2024 Reviewed by: Shelly Hernandez, MELY.BUSINESS PLANNING DIRECTOR - Fully Assessed Reason for Visit: Wants hcg levels sent to [facility] / [place] far away [Other] Prescriptions [...] by MARIANNA WARD on 08/13/24 Normal [facility] Provider [place] 08-13-2024 Provider Orders [id number] OTGTIFF Normal [facility] hCG Quantitativeon hCG Quantitative 63.6 mIU/mL High 0.0-0.6 [facility] Comment on above: Result Comment: Post -Menopausal Reference Range is: 0.1-11.6 mIU/mL Performed By: #### 7 [id number] #### [facility] (DEFAULT) [address] [place] [address] CNOVon 07-31-2024 CNOV Office Visit (REIBD) JAZ SANDERS ([id number]) 1995 F Date Time Provider Department 07/31/24 3:00 PM SHELLY HERNANDEZ REIBD During your visit today, we recorded the following information about you: Last Period 07/19/24 Mustapha Tello MA 07/31/2024 3:12 PM Addendum Patient verified by full name and date of . Jaz Sanders is here today for an IUI. LMP: 07/19/2024 Natural cycle IUI Timed With: Ovulation Predictor Kit , Date: 07/30/2024 Inclusion Paraeducator offered: Patient declines Mustapha Telol MA July 31, 2024 3:12 PM Dominguez Barry 09/05/2024 10:45 PM Signed IUI specimen released to provider Dominguez Barry July 31, 2024 3:24 PM Dominguez Barry 09/05/2024 10:45 PM Signed IUI Cryobio Donor # [id number] Pre: frozen washed specimen Post: 82 M/ml, [...] 3. Cycle Day: Last menstrual period: 07/19/2024 [place] Protocol: UNIVERSAL PROTOCOL / SAFETY CHECKLIST Procedure [...] Encounter Status:Closed by SHELLY HERNANDEZ on 09/05/24 [facility] Office Visit (ANDRBE ) JAZ SANDERS ([id number]) 1995 F Date Time Provider Department 07/31/24 2:30 PM ANDROLOGY NAPHTHALENE STILL OPERATOR [facility] During your visit today, we recorded the following information about you: Dominguez Barry 07/31/2024 3:26 PM Signed Thaw for IUI. Dominguez Barry Referring Provider: SELF [[id number]] Allergies As of Date: 07/31/2024 (Not on File) Date Reviewed: 05/09/2024 Reviewed by: Shelly Hernandez APRN.BUSINESS PLANNING DIRECTOR - Fully Assessed Primary Visit Diagnosis:Procreative management [...] by DOMINGUEZ [facility] ([id number]) 1995 F Date Time Provider Department 07/30/24 SHELLY HERNANDEZ REIBD During your visit today, we recorded the following information about you: Charisse Ding 07/30/2024 3:16 PM Signed N- ivf Pt has questions regarding IUI Shelly Hernandez APRN.CNP 07/30/2024 6:00 PM Signed patient's OPK today was dark but not positive Plan: test again tomorrow. 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, schedule IUI the same day [...] by SHELLY HERNANDEZ on 07/30/24 Normal [facility] CNOVon 07-07-2024 CNOV Office Visit (REIBD) JAZ SANDERS ([id number]) 1995 F Date Time Provider Department 07/07/24 [...] Cycle Day: 14 Last menstrual period: 06/24/2024 [place] Protocol: UNIVERSAL PROTOCOL / SAFETY CHECKLIST Procedure [...] Gonzalez 07/19/2024 7:50 AM Signed IUI Cryobio #[id number] Washed frozen specimen Post: 31 m/ml, 77% Insem#: 10.8 million Referring Provider: DANIEL HANNA [[id number]] Allergies As of Date: 07/07/2024 (Not on File) Date Reviewed: 05/09/2024 Reviewed by: Shelly Hernandez APRN.BUSINESS PLANNING DIRECTOR - Fully Assessed Primary Visit Diagnosis:Encounter for [...] CNOV Office Visit (ANDRBE ) JAZ SANDERS ([id number]) 1995 F Date Time Provider Department 07/07/24 9:30 AM ANDROLOGY NAPHTHALENE STILL OPERATOR [facility] During your visit today, we recorded the following information about you: Nichelle Gonzalez 07/07/2024 9:41 AM Signed Thaw for IUI Nichelle Gonzalez Referring Provider: DANIEL HANNA [[id number]] Allergies As of Date: 07/07/2024 (Not on File) Date Reviewed: 05/09/2024 Reviewed by: Shelly Hernandez APRN.BUSINESS PLANNING DIRECTOR - Fully Assessed Primary Visit Diagnosis:Procreative management [...] GONZALEZ on 07/07/24 [facility] 07-06-2024 [facility] ([id number]) 1995 F Date Time Provider Department 07/06/24 [...] Date Reviewed: 05/09/2024 Reviewed by: Shelly Hernandez, MELY.BUSINESS PLANNING DIRECTOR - Fully Assessed Reason for Visit: Patient [...] ISAACS on 07/06/24 [facility] 07-05-2024 JARRODN Telephone (REIBD) JAZ SANDERS ([id number]) 1995 F Date Time Provider Department 07/05/24 [...] Date Reviewed: 05/09/2024 Reviewed by: Shelly Hernandez APRN.BUSINESS PLANNING DIRECTOR - Fully Assessed Reason for Visit: re [...] Encounter Status:Closed by MARIANNA WARD on 07/06/24 [facility] 07-04-2024 JARRODN Telephone (REIBD) JAZ SANDERS ([id number]) 1995 F Date Time Provider Department 07/04/24 SHELLY HERNANDEZ REIBD During your visit today, we recorded the following information about you: Shelly Hernandez, MELY.[facility] 07/04/2024 7:30 PM Signed Spoke with [...] need to be removed. She will need [facility] emergency department guidance for her next IUI. [...] by SHELLY HERNANDEZ on 07/04/24 Normal [facility] US [place] 07-04-2024 Indication infertility [...] Read By: Ignacio Guy M.D. MATERNAL MEDICINE [facility] Rad[facility]ative[facility] Telephone (REIBD) JAZ SANDERS ([id number]) 1995 F Date Time Provider Department 06/29/24 [...] 06-09-2024 CNOV Office Visit (REIBD) JAZ SANDERS ([id number]) 1995 F Date Time Provider Department 06/09/24 11:00 AM RENNYHARISHIGNACIO TRACEY During your visit today, we recorded the following information about you: Nichelle Gonzalez 06/09/2024 12:30 PM Signed IUI specimen released to provider Nichelle Gonzalez June 09, 2024 11:24 AM Nichelle Gonzalez 06/09/2024 12:30 PM Signed IUI Cryobio #: [id number] Washed frozen sample Post: 42 m/ml, 74% [...] Cycle Day: 13 Last menstrual period: 05/28/2024 [place] Protocol: UNIVERSAL PROTOCOL / SAFETY CHECKLIST Procedure [...] discussed with the patient or authorized community health representative. The patient or authorized community health representative has agreed to proceed with the sensitive examination. (Sensitive examination includes inspection and/or palpation of the breasts, pelvis, prostate and anorectal regions) Patient declined brim shaper. Vidhi Sheldon MD IUI IUI Date: 06/09/24 [...] TIME: 12:01 PM Referring Provider: DANIEL HANNA [[id number]] Allergies As of Date: 06/09/2024 (Not on File) Date Reviewed: 05/09/2024 Reviewed by: Shelly Hernandez APRN.BUSINESS PLANNING DIRECTOR - Fully Assessed Primary Visit Diagnosis:Female infertility [...] CN Office Visit (ANDRBE ) JAZ SANDERS ([id number]) 1995 F Date Time Provider Department 06/09/24 10:30 AM ANDROLOGY NAPHTHALENE STILL OPERATOR [place] During your visit today, we recorded the following information about you: Nichelle Gonzalez 06/09/2024 11:48 AM Signed Thaw for IUI Nichelle Gonzalez Referring Provider: DANIEL HANNA [[id number]] Allergies As of Date: 06/09/2024 (Not on File) Date Reviewed: 05/09/2024 Reviewed by: Shelly Hernandez APRN.BUSINESS PLANNING DIRECTOR - Fully Assessed Primary Visit Diagnosis:Procreative management [...] Coding Summaryon 05-24-2024 Coding Summary HTMLBase 64 BjvdficgNDq2fOe+PGhlYWQ +SV1ZDYTyC18tuXBesO6tE9 NMTElOSywgQVBQTElOSyIgb lUrVH1zaMSyFCSb IC8+ND8oRUAuBymdeOAqd2E 2zQV5Q41bpu5nBFeqvAS3EL GiJdVfudxsa8wmlRo5FSkgK mluOyBt ENBroO75IHM7pT76Oq23qJT udBHdp4byqOs1HkGvVEHwHB Z9zEgyCFhtr6UpTGIrH65ym TLvp1O4 VAKcmCzpzDVpXqOdgTW1jX5 xCYecnelnr6peaznnXgf0sh 53rYQhf8I8rWN2G7EbqiJ6R GJvbGQg CeaixAKEyF0ykdmgw4vqggz mAqOrHGJpVSc6YDd4ZDNdlR ewHfUlER10AQD5HCZqfxEvL 2FsLWFs wMfgYyU0o6R8Px4VV5IJNks iY1GQUAOSGOoubUK+PC90cj 99T3OvCphyEnd2DKZnYRN7r JJ8rS4m MVKiFBksn7P1yXU0Y6JwlaU mmm0oh3elDERbXJgwM39biB Tgv4X5UZJdrIJ5RLDgdMyfA iBzaG93 Oyc+GEJhdVbhs4NxGwumo1b mp9rxcFm4YulqZSAxroPbeM soXVS3w7HyEe6nDHUwnVB5r EE8fK0w YfOhOnV1KTocU296TgSeoYP wZjqpD19wX6RcfYW+PHRyPj e4YVTopXhxIP7qS0EdHZQby mctbGVm nGxmID9qDEEagvvnOZSlrS7 bCCQxR0l2CjAzZbZ4PSdwD0 EnTFGndmvzGs33uH9jWrFjR nS5UDtp M0VvpgV0FVIjyDSeZXzkFCT 9Z16ug8M1XVSmERMhVLK1rY X1nG4eyFqcdrijuAOgeCrcb mVydGlj ZGagHGsiH734ZBJmxVwpMpL vZGluZyBEYXRlOiAgMDIvMD YvMjAyNTwvdGQ+TTUsAGO1a WxlPSAn aNRsCJssQp4evPdibZscXP4 oPBAeorhoFNQucH0bYBXkuG CshYslQD7dXORcldfka641U iAxMHB0 QPXcnGDxP0ZssM2oBuShMYF bKLBdH9KcrHHlJZhpX021QI tqNrP4INOnrfSaE6LzRJCaz WduOiB0 e9I3Dq0Bw1KktzdkS0NsrAC tQuQwAabdJPa3N2DuSfwnyL I+CA89EBIdYP20BUw2GEV9y WxlPSdi IKGvJ5AuwU1eViXcTVGzOIJ kOyc+PHRhYmxlIHdpZHRoPS owRUXpJsZouFzpAU8tJp9zX GVyLWNv hRxrpKIyXnEqq8wnGVViBPb hSA6saRpxZ1ZyoKD3TSUsz2 c8Do15P55oW1EjvKA+PGNvb KE8oOJ3 gP5oVdDePdJ9UGpnS864SvB vhOJpKtnpq6sls8czoSo9Sj L9JTQqwfXleLzbQVP5h2ZkW l32T32j IHdpZHRoPSIxNSUiIHZhbGl pjb8nvE9nNa0+FGFuoQC5gV S3mF9hVvZxPwT9GGmhE515R nRvcCIv Wukvm3feq5quoLl0InDjUHV oieUblBgmQPW9g3DyJu43R0 QczZchp1DyHkm0ps56pTMsm 3V3kWC6 U5KyVIItfyhbaMCevCitFF5 qLABpquunWCBwlF7tEXYwK6 u2CjEaAmY7MZkaZ3AittX9G GJvbGQg NVDzrURAdC1prnzrg3ovriu wSwRwGYMhJQm3COx6AEFheU yiYaIlCFB1ZyU7NEP0vQVfo V7xsVxu xnbfrU5fLth+XOA4iQNffBO RBQ9xWesspBH+PDIqBQH2cJ aiQXcpCGQvcR4nBNNjW2n3B iAwLjA1 DRcvG2HuizZ1SHBwvGBzYPD ddGTGzI0jfeytn3jmbptdBk NjYNKoYQs0WEy9JTExqZnaC iBsZWZ0 BcS0YTW9tCBgqX1uvJhfbzw ylH0wYib+XzemnWxpPQW3CQ d6G9HeXiz5XYDwpZzgPG9pd GFkZGlu Rf0kwFoevFnaHQ4uNGTewpd sj611CcPtc4zkFQJffJCgAW fnONU9H23pf2L5QABfLTJuE PO3zXX4 xN5vzZjnjwavmAJbzVdzgdN mgKylFDuwHObqX298SVWzhA nuPzStDCe9Y3YuJqq3WQYwp ZprLZ1z aQCqAOojEr2ikTttnKheSY9 wBBLulyzmb830EvIev3zrYI WtfANdABrhLIM5C40pl6S9V CMwMDAw MXO7fIX1vO0ihBurjpmiwKK mdDsgdmVydGljYWwtYWxpZ2 10AQHulBjjRlAjxUg1F5ErU qv6DLQw yLmrYX5rxGRtQQelSu2esRn gmXceTU0oTJFvitlon449As Lem4jcMKTfjOFuFXtlMZJ3G 07gf7T6 LIQxJUJuEIM0rEU8aS5hfOh nbjogbGVmdDsgdmVydGljYW fzMPvlP622TFGbeNfoMwBkn GllbnQg VNtzEFq7P8DlDxnqkFL+PC9 6QLFrPC36uSCadJKlj9vmtY w5BuItTBDbEUJ2qLbtXMftt 3JkZXIt W25ybIKtf3I6LDBwbBfhsXX fVbRaxZX9xG8mKZjrgnikp4 rlytmvSdmvq4rvod58xE92W 29sIHdp ZHRoPSIzMCUiIHZhbGlnbj0 vpR2zQq2+MPWbcST8oHL0eX 3jMKPeBaJ3YGjcO258QgDce CIvPjxj j5ycy6usdZs4OuG1IGBtrzD mbYewWLB8g3IrCn74R47iJR dpZHRoPSIyMCUiIHZhbGlnb x8qbR2t Ii8+IXSjqAL6oIS2kE2qNjK gKjB7EHexU318WsLmrPYjFo erQ44kU6YltIH+RDIlWaj1V CBzdHls YX6fqTDwHHxkNd5yGPS1HtI vBbZtHEhtN7SgBOCleanacr rwfLJ1TKXkPZDkxK10Bw4tz DogMTBw lUFYxP8xsomqg5pbhhkqZzS bDRMoJAf8HKq8LHEorQdtJi QbYXF3KzQ4SVY9eWIuhG4bn Glnbjog uG3fD8WbRFOqyppzJd08vZ4 qXwBgOgG5WHjnUdy+TUNDQU 5OLCBIRUFUSEVSIEVMSVpBQ kVUSDwv dGQ+ZXJeLKK1eBckGNyuBPU vrZ5fEPSzB7y5JeCmVjQ7JX qzN2ZgIWFdldbwUl23oB3qF iAwLjA1 ODwtR9GygmP1VIBuoIJnQMn pRRT4W19yh6I0KIBxWIMlPH A6aGX7uM8njArwtdiiqORqr DsgdmVy oPvfVDwqFEkzI980ATTguAf yQjLzRzL7LsY8YXQ2X4BsBt t2ANGixHmdMQ2vkAHgMIviK e8dxYgx rRbzNO4hZOOolxatZAPurB6 cQEPdeFOczByzRL6aERWood cke824AyLqGAI3PMXbaRPdI 7VhcS0v PyBdRTDtEEUcB6DsgZQyZHd hL371SJhhKlX1HBBhizPhT2 VnSIClnDnkFtK1f2E2Ll6gR SBZZWFy czwvdGQ+LHAcRYM6lJnuCFo yRIWnhN1xIKAaI7n7PhHtEz P9VYolF7HhTECmzccuTi47x S9xYsOa XoY1CLhfV6CexhU1LIMqeVK qBHfkEWF7K53ur4P1KOGdQS HyJNO6fHD2sK5loWhfncaed GVmdDsg axIhuMqdGXxxVHflC286UXR vcDsnPkZFTUFMRTwvdGQ+PH GhIGF3hUagPOodPAYroW6cM DLlR3o3 WrOaJeR1LMnyW9PzFNOropn uJw46qO8hVgRsMeU0VBgsB1 PmtjN3INKcnGRcASnwBFI8K 44so5N8 KVFyUSXcBGS0yDA2sS4koCu nbjogbGVmdDsgdmVydGljYW rpLPtbY982OZKemEzvRn7RO Z47JK44 J7NlNghhtXZlkWF+PHRhYmx lIHdpZHRoPScxMDAlJyBzdH ihGV6rYa3hYICwHWUpwHtkh HNlOiBj m3twOEUpFZvfIN5jtUtgI3V piWJ5OLOyo8t7Qn85G20xI0 JvdXA+JCDrpIU9vQJ7iR9bC zAlIiB2 BQtpW858TvUteYGoEqkiz4w xb5ihuXm4PhRcDOLdwgUrnK hzJGJ5g2DwMg13M68cMMngM HRoPSIy FWSuEYUejGlbcs3scA7wAl3 +NRYyeIL1lVI6pH8tJbLlUa N9QKocH317FePfkNXiEyzfN 62qY0Ri dXA+EFJhDfh7PMCeyAmkPZ8 uaOFwTEtuMf0rPDJ9MpGaWk AtIUojE7WdDHFiupdzpffhh WP2RBJz DOFjoK13Kc8kkQkuIf3zNEA qGUR2SIFcuOQaW6LyfG4qBu OxDKOkXPUsN0JvuWFiAEocW 246IGxl FrB1QZGtkjVxH0IlZBHhzGj mLhV8a8O6Pg0SiHcsuQVqPV 5zVyFcALu1A0WaIvq2YEOpn LpmLK0z bBXsUJbuDt5ktDidaYpeNW2 kRMIzlodyh695IbKdn7yrMI SmpHCxBWmnLGY3R39mq4K8R CMwMDAw SNI0aYD3cA5doIeitjymeLG mdDsgdmVydGljYWwtYWxpZ2 60UVVdtSogJuLIAlh0Y1CmD yn0OEJr hBbwQQ1ouIBrQRppOj2mzMb zmMiwHI1tVCVtmnraw024Nu Ozq9nyQSGowVUvSGeaGQT4Z 41sy9I5 TVWpBTSfZBC9nIF1dN0ctAa nbjogbGVmdDsgdmVydGljYW ooUCcqV378AMUvkEcvWm4TN cm9V0Ob Mix4EINqcJwgKM7tgGSiWXw wEk7upEmlwMzqJV5yRAGzre twp795FvLjh9dxSMDkcWKlW GltZXM7 Y01rr9U8BSIfTSNyGLM5xEF 9tV1iiUaufxlxiEHodDclpc JozDljZFmmGMejJ235ILDfc DsnPlBh eWVyOjwvdGQ+NP53ay68U2A lGxsvVjf4EQRbBHI9uVV0xD 3yHPNyGFxzm5R4kBP6K7Vfs mXsft5l b2x (more content not included)... [facility] Progesterone LCon 05-22-2024 Progesterone LC 7.6 ng/mL Invalid Interpretation Code [facility] Comment on above: Result Comment: Foll icular phase 0.1 - 0.9 Luteal phase 1.8 - 23.9 Ovulation phase 0.1 - 12.0 First trimester 11.0 - 44.3 Second trimester 25.4 - 83.3 Third trimester 58.7 - 214.0 Postmenopausal 0.0 - 0.1 Performed At: [facility] [id number] J Luis Gray PhD Ph:[phone] Performed By: #### [id number] ####[facility] (DEFAULT)[address] [place] [address] Provider Orderson 05-21-2024 Provider Orders [id number]#1.00 [facility]20 Physical Therapy Note [id number]#1.00O [facility] 25(OH)D3 [facility]-mCncon 2023 25-hydroxyvitamin D3 [Mass/Vol] 28.8 ng/mL Low 31.0-80.0 [facility] Comment on above: Order Comment: Speci men Type: BLOOD SPECIMEN Ordering Facility: [facility] Address: [address] [place] [address] Result Comment: Clas sification of 25 [place] Vitamin D status: Deficiency/Insufficiency: < or = 30 ng/ml. Sufficiency/Optimal Levels: 31-80 ng/mL Toxicity: > 100 ng/mL. Test performed by chemiluminescent immunoassay. Performed By: #### 5 5454-3 #### [facility] CLIA [id number] [address] [place] [address] [place] C. trachomatis+N. gonorrhoea e DNA AC+probe Ql (Unsp spec)on 04-02-2024 C. trachomatis rRNA AC+probe Ql (Unsp spec) Not detected Normal Not detected [facility] Comment on above: Order Comment: Speci men Type: BLOOD SPECIMEN Ordering Facility: [facility] Address: [address] [place] [address] Performed By: #### 5 5454-3 #### [facility] CLIA [id number] [address] [place] [address] [place] N. gonorrhoeae rRNA AC+probe Ql (Unsp spec) Not detected Normal Not detected [facility] Comment on above: Order Comment: Speci men Type: BLOOD SPECIMEN Ordering Facility: [facility] Address: [address] [place] [address] Performed By: #### 5 5454-3 #### [facility] CLIA [id number] [address] [place] [address] [place] CARRIER SCREEN, EXPANDEDon 1 06-03-2023 CARRIER SCREEN RESULTS View results in S canned Documents link when available. Normal [facility] Comment on above: Order Comment: Speci men Type: BLOOD SPECIMEN Ordering Facility: [facility] Address: [address] [place] [address] Performed By: #### 5 5454-3 #### [facility] CLIA [id number] [address] [place] [address] [place] CMV IgG Qnon 04-02-2024 CMV IGG QUAL Negative Normal Negative [facility] Comment on above: Order Comment: Speccarlos negrete Type: BLOOD SPECIMEN Ordering Facility: [facility] Address: [address] [place] [address] Result Comment: No s erological evidence of past exposure to Cytomegalovirus. Cannot exclude recent infection if the specimen collected within 4-6 weeks after infection. Performed By: #### 1 989-3, RUBRAEANNG, 7852-7, 7853-5, VZVG2 #### [facility] CLIA [id number] [address] [place] [address] [place] CMV IgG SerPl-aCncon 024 CMV IgG Qn <0.20 Normal [facility] Comment on above: Order Comment: Speccarlos [facility] Type: BLOOD SPECIMEN Ordering Facility: [facility] Address: [address] [place] [address] Result Comment: The magnitude of the measured result is not indicative of the amount of antibody present. U/mL values are interpreted as follows: Negative <0.6 Equivocal 0.6 to <0.70 Positive >=0.70 Performed By: #### 1 989-3, RUBOTIS, 7852-7, 7853-5, VZVG2 #### [facility] CLIA [id number] [address] [place] [address] [place] CMV IgM Qnon 04-02-2024 CMV IGM, QUAL Negative Normal Negative [facility] Comment on above: [facility] Comment: [facility] Type: BLOOD SPECIMEN Ordering Facility: [facility] Address: [address] [place] [address] Result Comment: No s erological evidence of recent exposure to Cytomegalovirus. Performed By: #### 1 989-3, RUBIGG, 7852-7, 7853-5, VZVG2 #### [facility] CLIA [id number] [address] [place] [address] [place] HBV core Ab Ser Qlon 024 HBV core Ab Ql (S) Negative Normal Negative [facility] Comment on above: Order Comment: Speci men Type: BLOOD SPECIMEN Ordering Facility: [facility] Address: [address] [place] [address] Result Comment: No e vidence of current or past infection with Hepatitis B virus. Should recent infection be suspected, repeat testing may be considered 3-4 weeks after this draw. Performed By: #### 1 6933-4, 5195-3, 34577-9, 32459-1 #### [facility] CLIA [id number] [address] [place] [address] [place] HBV surface Ag Ser Qlon 03-18 HBV surface Ag Ql (S) Negative Normal Negative [facility] Comment on above: Order Comment: Speci men Type: BLOOD SPECIMEN Ordering Facility: [facility] Address: [address] [place] [address] Performed By: #### 1 6933-4, 5195-3, 58394-5, 54948-1 #### [facility] CLIA [id number] [address] [place] [address] [place] HCV Ab Ser Qlon 04-02-2024 HCV Ab Ql (S) Negative Normal Negative [facility] Comment on above: Order Comment: Speci men Type: BLOOD SPECIMEN Ordering Facility: [facility] Address: [address] [place] [address] Result Comment: The result suggests no evidence of active infection with Hepatitis C virus. Should recent infection be suspected, repeat testing may be considered 4-6 weeks after this draw. Performed By: #### 1 6128-1 #### [facility] CLIA [id number] [address] [place] [address] [place] HIV 1+2 Ab IA Qlon 4 HIV 1 and 2 Ab IA.rapid Nom (S/P/Bld) Normal [facility] Comment on above: Order Comment: Speci men Type: BLOOD SPECIMEN Ordering Facility: [facility] Address: [address] [place] [address] Result Comment: Test not indicated. Performed By: #### 1 6933-4, 5195-3, 05388-8, 24918-7 #### [facility] CLIA [id number] [address] [place] [address] [place] HIV 1+2 Ab+HIV1 p24 Ag IA Ql Non-Reactive Normal Nonreactive [facility] Comment on above: Order Comment: Speci men Type: BLOOD SPECIMEN Ordering Facility: [facility] Address: [address] [place] [address] Performed By: #### 1 6933-4, 5195-3, 84529-6, 71518-3 #### [facility] CLIA [id number] [address] [place] [address] [place] HIV immunoassay testing algorithm interpretation (S/P/Bld) [Interp] [facility] Comment on above: Order Comment: Speci men Type: BLOOD SPECIMEN Ordering Facility: [facility] Address: [address] [place] [address] Result Comment: No e vidence of HIV-1 or HIV-2 infection. Should recent infection be suspected, repeat testing may be considered 2-3 weeks after this draw. [place] Rev. Code 3701.243(E): This information has been [...] diagnoses. Performed By: #### 1 6933-4, 5195-3, 19762-9, 92170-2 #### [facility] CLIA [id number] [address] [place] [address] [place] HbA1c (Bld)on 04-02-2024 Average glucose Estimated from glycated hemoglobin (Bld) [Mass/Vol] 85 mg/dL [facility] Comment on above: Order Comment: Linden penelope Type: BLOOD SPECIMEN Ordering Facility: [facility] Address: [address] [place] [address] Result Comment: eAG: (Estimated average glucose) is a calculated value from HgbA1c and is community health representative of the average blood glucose level in the last 2-3 month period. Performed By: #### 5 5454-3 #### [facility] CLIA [id number] [address] [place] [address] [place] HbA1c (Bld) [Mass fraction] 4.6 % Normal 4.3-5.6 [facility] Comment on above: Order Comment: Sumeetcarlos negrete Type: BLOOD SPECIMEN Ordering Facility: [facility] Address: [address] [place] [address] Result Comment: Amer [place] Diabetes Association guidelines indicate that patients with HgbA1c in the range 5.7-6.4% are at increased risk for development of diabetes, and intervention by lifestyle modification may be beneficial. HgbA1c greater or equal to 6.5% is considered diagnostic of diabetes. Performed By: #### 5 5454-3 #### [facility] CLIA [id number] [address] [place] [address] [place] RUBELLA IGG ANTIBODYon 04-02 RUBELLA IGG AB, QUAL Positive Normal Positive [facility] Comment on above: Order Comment: Linden [facility] Type: BLOOD SPECIMEN Ordering Facility: [facility] Address: [address] [place] [address] Result Comment: The result suggests recent or past exposure to Rubella virus or history of Rubella vaccination. Positive result may also be seen due to presence of passively-transferred antibodies. Please correlate with patient's history. Performed By: #### 1 989-3, RUBIGG, 7852-7, 7853-5, VZVG2 #### [facility] CLIA [id number] [address] [place] [address] [place] Reagin and Treponema pallidu m IgG and IgM [Interp]on 04-02-2024 T. pallidum IgG+IgM IA Ql (S) Non-Reactive Normal Nonreactive [facility] Comment on above: Order Comment: Speci men Type: BLOOD SPECIMEN Ordering Facility: [facility] Address: [address] [place] [address] Performed By: #### 1 6933-4, 5195-3, 04858-9, 84664-0 #### [facility] CLIA [id number] [address] [place] [address] [place] Reagin+T pallidum IgG+IgM Se rPl-Impon 04-02-2024 Reagin and Treponema pallidum IgG and IgM [Interp] Cannot exclude recent Treponemal infection if specimen collected within 7-10 days after appearance of suspect lesions or 2-3 weeks after an exposure. Clinical correlation is required. Normal [facility] Comment on above: Order Comment: Speci men Type: BLOOD SPECIMEN Ordering Facility: [facility] Address: [address] [place] [address] Performed By: #### 1 6933-4, 5195-3, 23746-8, 86750-8 #### [facility] CLIA [id number] [address] [place] [address] [place] TYPE + SCREEN PRENATALon ABO A Normal [facility] Comment on above: Order Comment: Speci men Type: BLOOD SPECIMEN Ordering Facility: [facility] Address: [address] [place] [address] Performed By: #### T SPN #### [facility] CLIA [id number] [address] [place] [address] [place] Rh Nom (Bld) Positive Normal [facility] Comment on above: Order Comment: Speci men Type: BLOOD SPECIMEN Ordering Facility: [facility] Address: [address] [place] [address] Performed By: #### T SPN #### [facility] CLIA [id number] [address] [place] [address] [place] TYPE AND SCREEN EXPIRATION 04/05/2024 23:59 [facility] Comment on above: Order Comment: Speci men Type: BLOOD SPECIMEN Ordering Facility: [facility] Address: [address] [place] [address] Performed By: #### T SPN #### [facility] CLIA [id number] [address] [place], [place] [id number] [place] [address] [place] VARICELLA ZOSTER IGGon 04-02 VARICELLA ZOSTER IGG, QUAL Positive Normal Positive [facility] Comment on above: Order Comment: Speccarlos penelope Type: BLOOD SPECIMEN Ordering Facility: [facility] Address: [address] [place] [address] Result Comment: The result suggests recent or past exposure to Varicella-Zoster virus or chickenpox vaccination or zoster vaccination. Positive result may also be seen due to presence of passively-transferred antibodies. Please correlate with patient's history. Performed By: #### 5 5454-3 #### [facility] CLIA [id number] [address] [place] [address] [place] Coding Summaryon 03-20-2024 Coding Summary HTMLBase 64 ZlvwtbxkQNb3oFf+PGhlYWQ +KA9NVHLkK14yiMVewI1gA9 NMTElOSywgQVBQTElOSyIgb tRvGE5kbAOfHYPr IC8+AQ0dZKJrRryytVOue9W 5kJR0N08jng9eJGxpiPM5WV QfLaIzbyspy3gjxIr8EQhpZ mluOyBt NIZzsI18MMP0xB13Kp28uRI xeDIsg3jwuVa6LqXoUJUzGU B5wSgaLHvdc6SsDXYqK23pl FRvy7W6 AQDzkMsmiGBbZmXhmJT3mB3 eTPmqdnpew3autshtWio0qs 12wSUvg3T8pTU1F3BwehR0W GJvbGQg NspstFRQbU0xywqlv4duoys cGhGpZVQdWIs0EXb4CHGycT syEuVfFC76USU9OMWaeoEqY 2FsLWFs rZdvCkS7u2V3Gj8AE5JTKnb nI9HFTFMRRHsxaZH+PC90cj 62Q6HuAlckOwm3SJHhOMM7o XI5uJ5u LNKbWIiuh6V0zIY9B5YuotI niy4ri0liHFNcXUmrO93yrT Gdg5X7RQJqzTD4XVDieLczF iBzaG93 Oyc+XBWmmBytr6StZlsrs7o xs0soxXn6WgmsBMAktpLrgP exOFM3j1CsKj8dTKYemFC0z NO4dF7h HzPtQoO2WSmfQ188PbVupKC xMdbqE44vU4ZcrEE+PHRyPj a1RBWpbTvcQR2iY6ZwKZOhf mctbGVm fRseMW7hTJPrykcuGANwyZ2 pWMZzI5e8XaYlTtY3XYhtW3 AlMJJzxqszQq07wY6mGtZkS qX0AEhv Y3VfytN7OMGkaKKpXLkuNPJ 2T34nw8L3SWEsITQsFIF6aW D5wM2unIniqpndiBDmhHpif mVydGlj USdfKPynM156DZIubVpuRtU vZGluZyBEYXRlOiAgMTIvMD MvMjAyNDwvdGQ+HJPyRJE2m WxlPSAn uKLsOIshBc2kxDfweDonXC5 mLNDqljngVKRnpY9rIYWecX ApcHetCZ3jXUNygkvgy135L iAxMHB0 ZOBoqHUgE4GekB1fKfXqMZJ rYRYfT1CcyVJqIBhzM893FV vvRjC7WDQzeeJgJ7JlSCYyb WduOiB0 b2X2Ey2Si2OxirrxE8McwHY tMwVgDgpiXKf8Z5YpMherfN I+JU74FNWdWX31CZv3CZA8h WxlPSdi AINnC2KdcB4rUwHxUMHnNMQ kOyc+PHRhYmxlIHdpZHRoPS htKTYaQuOjdPfbKX0dMy1yM GVyLWNv eBcukUDtKdHba8bwNIBuXMj sWV4jgZadV6AbgHG4IHSqd0 x1Qn01M97hU9ZqxBY+PGNvb LS1tYC8 uY7sKmAwAtN8NMsgJ106DnA nnGSlBvaxg0utc0mmmIt1Tt H3QGJnswNgfMwtRDZ7z1CsS g18U12o IHdpZHRoPSIxNSUiIHZhbGl jur5ifH8oZc5+VLRxiCB3gJ D1cC4mGoDvThM3LVzjR121U nRvcCIv Wgzke9ujc8zdqAy9PwOwGRC gogUrxQzxUBN1q7RiEk47A4 NuqZplg9GuUjk1bj10mAYja 8U2gZW5 X0CqZNTybexmzMWdbLnnOL3 pRZJtowgeRDQsfS8dDBHhI2 m6RtQxRmV6LQyeL0ZqriR4C GJvbGQg DMAzgICYdL5sdxgpz4kzvbm rQjCsPKPvDBo6XUs9SDXyfN qeBxCsBKL8BaJ6AAC2lYMud P4iyYmn cacitT7uJgg+ZJM1qLSaqAR HUY7iOugpqZY+TQDoYEB5mP pzQRnbQJWadR1sYOPgC2w0M iAwLjA1 BDqqU0JbisH6UACqyITkARG uiNPYcD7lzgmze6zkqrbkZq MaKGHyTQq0FQc4ICIkcPamV iBsZWZ0 XdY3YSX2nFBqdC2mtKcwdrt usN6iAhq+MdlwjCowVFW6FJ x3O6OmNxg7SYUhsTwmXD5kh GFkZGlu Ji0wuWoygSzxAL7gGFYsame uq952NuPll4iqRRAfiZAuIL yeCTV3F12ik6M5OPPyTYRwL PU0sGM0 kV1gqApqmjmgsNMazLrpvsL igXkaSAetWFbkS657TNQonR caKxWdFZj1B8RwRhm9REXwr KlpAZ6o aOLsHFfvXx9nyLqbcAaxGB3 tDKNdawaue982YeYea9rcWH KudZPsOOwuLKJ1G74yf2O8U CMwMDAw AMA4sTZ5qE7mbCiayvtkiIW mdDsgdmVydGljYWwtYWxpZ2 17VEMkfLdvBiBurRg1K5ZpD im5VHIz jHijWR2lnEWuRZylFg2rbCw nzBfvZG8cQACcfevui053Wk Azg9bmEZIluZQrATgtAIK3O 84bl0P5 GEDcZSXuCBR5tWY1wV7ixUx nbjogbGVmdDsgdmVydGljYW slQDwkS695IYDkyWhqYrNkl GllbnQg QPrjMCb3O5VuWjgapFE+PC9 5BGHgDT19sEPloUIre4yrcH x9VhIsPDKlKIM4vAnhQTorc 3JkZXIt V37jvDUad3T5ESBgaFdkiZQ iZuKqhIB7qD4tPIdxtntpy5 inxegwEwvqj4hore38qG96T 29sIHdp ZHRoPSIzMCUiIHZhbGlnbj0 pqR9sEy9+YJXzoSW0eNK5uW 2sVUMfAsE9GRcaT317IiDya CIvPjxj f7ytb6yrnVr0WyR8UCMpksY pcEtkKWW3t8QtQp08J19cVC dpZHRoPSIyMCUiIHZhbGlnb e6apQ5u Ii8+IOAiuGO6hCQ4kA5dVvF hDdA3RGlvM306IxDflBYmTo ceM33lQ2BywVH+EYEzHhw7A CBzdHls RW4cgGJpOXatHy6gPKP7PrL xVeUjLVstC3XtZQTqnyjmjs fjoSQ9PEOeHZNdaH38Jt2ik DogMTBw xQMEdR2ghcwsy2jzlovnCsK vKIYtVZs4TMv8HFLpmDiaLu XiGGF0HtY0BNO8pGQpaL0ed Glnbjog jH0dC5QjPGJrrjkfRd71tD7 gXyAiBuQ2XWaoUit+TUNDQU 5OLCBIRUFUSEVSIEVMSVpBQ kVUSDwv dGQ+GYEvJBJ1qZecCIixZJT yiJ6wKTCkJ4d1VdQeZrF7CX inW0RtGYTqqyqzYh61bH7yG iAwLjA1 LVpkA4ZvhbV4XOSxpHOuDPo oBWK5C90bw2V6PMRmNCEkXQ O5bHK6eG3vaIqsazxozQAym DsgdmVy jYxlHMfmLKieF562SXPyhXr yHeVtBnT1EjV0DOK1U2NcTc v8NQMlyHebTI0ghIDwDMejX k7kbChf aJntUS3vQYMoaypnURBveV9 wIPZjyYWzqNpnUH7lPJQeen bjh383DmWyEHL8YCOpnTWeR 0ZftQ8m QqLjSJJjQUNdQ8SlnLIhUZh cX727SAczNdL4ETRmeoCyE5 CmJTIrbGvyBaY5j7Z1Iw0qF SBZZWFy czwvdGQ+TXWjFPC5vBrlARy eDKItrU4jSTLeR2a7UlCjAo B1VByoF2PlKEDicozcJs33d Q6mFvZa JzZ7WKjhP0RjvlY8EDVhpYE rQWmtVVF5W55vf1D2UNNpZP KbNHJ2rIV2fH2woWuyvwtdv GVmdDsg ecMvkXteNTxhSUjdQ313QXM vcDsnPkZFTUFMRTwvdGQ+PH IfMOH0pBvvDEzgZTGrwL7iL OZdH9w6 LuZlVyF8WGigS9TxXJDgpvy bLo80gI1mKbYjNuQ8TMlfG7 YpasR9UWYgyUBrQInuDZF6Z 06vk1F4 QPPeLOObMRP0pTZ2qB5ghNj nbjogbGVmdDsgdmVydGljYW chEHweR253SJFznIwgEnUaK 3Vycmlu ZbPNlBMgZCBwWI62SH62SA4 6M4OiVygioTEabRN+PHRhYm xlIHdpZHRoPScxMDAlJyBzd VmfLK6m Ql0pKCYeGNGdrFbmyJWlKaO dy3diZEVkZNdhTR6ksIwqR5 GtzKK1FNVyq9v4Qf87Z10uZ 3JvdXA+ PHQyzNP2yWW1mZ0rAtOkMzW 9NOmtC717XqBvlTJiVwich9 kty8xrzJp9PqUiPFJbjjKlt WduPSJ0 v8RoBk51I84hHAmkQHGdIXW gCBKiCMOuqKsikd8vtO9eGf 8+HZYhdEI4oHQ9dI4fVzTaA rR6RPhv J250HwVbiLCsAuagM42dF0I vdXA+ARXrCmq6HLWgpZkmWC 6jzCFsVIdaJo1pMUB6BsCqF jIwMGlu P5SwIFFtqyiwaezpxCB3HDU oUAXlcB50Gd5hhPrmOm2vBT FtSWV4SVXpvSZoN6TetW8iH iAjMDAw PQTwU7MopBTzPMvpD914QVg tRfX2PRHtsyTuC1PfJPHptC miHpY3x9V0Iq9QiIocvOFkN U8rUkNv QOx4F0KfYby7YYDmfJagMC9 ljEQgDAuqZm3lrSmjlWnuEC 0jIYYfjerwx380ReQla3piN DEwcHQg JKzuFFM0T08jo6A6WQElNTH wYKY6xTH6iD2krBufwylyqE VmdDsgdmVydGljYWwtYWxpZ 246IHRv xDbgDdYZGaa3B1NnQnb0TIB cpQepYP4aiNUpIGuvSf8xsY xuzKxaME2tIEUzccxqi940K dZzm2yl BRQzoFUaKVjvUWG7X68dq2O 8IJRnUUFiEMJ7iUJ6gW6qtK lnbjogbGVmdDsgdmVydGljY WwtYWxp H425UPAfoEmiYg2UJia5K6N rBxh5APYgwVykTI9bvVGiSL tdWl6yuVgxdGhoQY1nOZStm efuw476 PyRlw1bfULFvoDApHAqdOGX 3W30tj6F6AEOtEKJvACZ8gP D0oP1awYxfftooyYIsnVyol mVydGlj IDmlZJlhN772UBIknLykCgA heWVyOjwvdGQ+KH65ia60R4 TkZgcoEbb1WRLmJLT2yUD7m H6bWAZp JSc (more content not included)... [facility] Provider Orderson 03-07-2024 Provider Orders [id number] [facility] [id number]#[id number] OTGTIFF [facility] .Auto Diff 1on 02-29-2024 Auto Motley % 3 % Normal 04-29 [facility] Comment on above: Performed By: #### 1 [id number], 0754855, 8643074 #### [facility] (DEFAULT) [address] [place] [address] Baso Abs# 0.0 x10 Normal 0.0-0.2 [facility] Comment on above: Performed By: #### 1 [id number], 6563376, 2024294 #### [facility] (DEFAULT) [address] [place] [address]402 Basophils/100 WBC (Bld) 0.3 % Normal 0.2-2.0 [facility] Comment on above: Performed By: #### 1 [id number], 4074225, 5524336 #### [facility] (DEFAULT) [address] [place] [address] 87141 Eos Abs# 0.0 x10 Normal 0.0-0.4 [facility] Comment on above: Performed By: #### 1 [id number], 4377181, 8912227 #### [facility] (DEFAULT) [address] [place] [address] 73292 Eosinophils/100 WBC (Bld) 0.1 % Low 0.9-4.0 [facility] Comment on above: Performed By: #### 1 [id number], 1105779, 6567617 #### [facility] (DEFAULT) [address] [place] [address] 81574 Lymph Abs# 1.5 x10 Normal 1.3-2.9 [facility] Comment on above: Performed By: #### 1 8577013, 1385810, 3047073 #### [facility] (DEFAULT) [address] [place] [address] 16046 Lymphocytes/100 WBC (Bld) 16 % Normal 14-48 [facility] Comment on above: Performed By: #### 1 8358148, 4037018, 3227401 #### [facility] (DEFAULT) [address] [place] [address]9021 Motley Abs# 0.3 x10 Normal 0.0-0.8 [facility] Comment on above: Performed By: #### 1 1522072, 4839297, 9754179 #### [facility] (DEFAULT) [address] [place] [address] 94974 Neut Abs# 7.8 x10 Normal 1.5-9.2 [facility] Comment on above: Performed By: #### 1 4700433, 1590767, 2626107 #### [facility] (DEFAULT) [address] [place] [address] 19784 Neutrophils/100 WBC (Bld) 81 % Normal 44-88 [facility] Comment on above: Performed By: #### 1 4923021, 6036156, 2957633 #### [facility] (DEFAULT) [address] [place] [address] CBC w/ Auto Diffon 4 Erythrocyte distribution width (RBC) [Ratio] 13.9 % Normal 11.5-15.0 [facility] Comment on above: Performed By: #### 1 8000407, 8695074, 5532694 #### [facility] (DEFAULT) [address] [place] [address] Hematocrit (Bld) [Volume fraction] 45.3 % High 33.7-40.4 [facility] Comment on above: Performed By: #### 1 7732416, 6344048, 7275260 #### [facility] (DEFAULT) [address] [place] [address] Hemoglobin (Bld) [Mass/Vol] 15.5 g/dL Normal 11.3-15.9 [facility] Comment on above: Performed By: #### 1 4962502, 2855189, 3291496 #### [facility] (DEFAULT) [address] [place] [address] Man Diff? Auto Invalid Interpretation Code [facility] Comment on above: Performed By: #### 1 [id number], 3713287, 3997932 #### [facility] (DEFAULT) [address] [place] [address] 87478 MCH (RBC) [Entitic mass] 29 pg Normal 24-34 [facility] Comment on above: Performed By: #### 1 4418208, 3481757, 0764544 #### [facility] (DEFAULT) [address] [place] [address] 04448 MCHC (RBC) [Mass/Vol] 34 g/dL Normal 26-37 [facility] Comment on above: Performed By: #### 1 5657107, 7688282, 2485082 #### [facility] (DEFAULT) [address] [place] [address] MCV (RBC) [Entitic vol] 86 fL Normal 81-100 [facility] Comment on above: Performed By: #### 1 7531061, 8396513, 5418255 #### [facility] (DEFAULT) [address] [place] [address] 06297 Platelet 213 x10 Normal 138-427 [facility] Comment on above: Performed By: #### 1 5539691, 9668484, 6926096 #### [facility] (DEFAULT) [address] [place] [address] 09716 Platelet mean volume (Bld) [Entitic vol] 6.8 fL Normal 6.3-10.2 [facility] Comment on above: Performed By: #### 1 6433544, 8371452, 2772468 #### [facility] (DEFAULT) [address] [place] [address] RBC 5.28 x10 Normal 3.70-5.30 [facility] Comment on above: Performed By: #### 1 4504953, 0477788, 6420239 #### [facility] (DEFAULT) [address] [place] [address] WBC 9.6 x10 Normal 3.5-10.5 [facility] Comment on above: Performed By: #### 1 2778846, 9282330, 7800137 #### [facility] (DEFAULT) [address] [place] [address] Ferritinon 02-29-2024 Ferritin [Mass/Vol] 20.6 ng/mL Normal 12.0-150.0 [facility] Comment on above: Performed By: #### 1 4943643, 4776365, 7868794 #### [facility] (DEFAULT) [address] [place] [address] Iron Levelon 02-29-2024 Iron [Mass/Vol] 61.0 ug/dL Normal 28.0-170.0 [facility] Comment on above: Performed By: #### [id number] ####[facility] (DEFAULT)[address] [place] [address] [id number] 02-28-2024 HNO ID: [id number] Author: IGNACIO GUY MD Service: ? Author [...] for three cycles. They will meet with RUBBER TESTER to review the IUI checklist and sign consents. I spent a total of 45 minutes on the date of the service which included preparing to see the patient, [id number] patient care, completing clinical documentation, counseling and educating the patient/family/caregive r, and ordering medications, tests, or procedures. 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 [...] for three cycles. They will meet with RUBBER TESTER to review the IUI checklist and sign consents. I spent a total of 45 minutes on the date of the service which included preparing to see the patient, [id number] patient care, com (more content not included)... Normal [facility] IGP,APTIMA HPV,AGE GDLNon AGE GDLN ACOG TESTING Note . [facility] Comment on above: TESTS RESULT FLAG UN ITS REF RANGE LAB Clinician Provided Cytology Information Source.............Cervix;Endocervix No. of containers..01 ThinPrep Vial Age Tayler SINHA Amaya... FLAG LEGEND: L-Low Normal,H-High Normal,LL-Alert Low,HH-Alert High <-Panic Low,>-Panic High,A-Abnormal,AA-Critical Abnormal Performed at: 01 =G [address] [address] Dagmar Love MD, IGP, RFX APTIMA HPV ASCU Note . [facility] Comment on above: TESTS RESULT FLAG UN ITS REF RANGE LAB DIAGNOSIS: 02 NEGATIVE FOR INTRAEPITHELIAL LESION OR MALIGNANCY. Specimen adequacy: 02 Satisfactory for evaluation. Endocervical and/or squamous metaplastic cells (endocervical component) are present. Performed by: 02 Edel Sewell, Medical Record Clerk ([facility]) . 02 Note: Note 02 The [...] <-Panic Low,>-Panic High,A-Abnormal,AA-Critical Abnormal Performed at: [address] [id number] Dagmar Love MD, Performed at: =G - [facility] [address] [id number] Supply Chain Manager: Dagmar Love MD, Phone: [phone] Performed at: [facility] [id number] Supply Chain Manager: Dagmar Love MD, Phone: [phone] BRUSH-SPATULA CERVIX ENDOCERVIX [facility] Coding Summaryon 02-20-2024 [facility] ThjkofrpAUi3jYp+PGhlYWQ +YZ0QNDOfJ00lnWRqvQ8tK5 NMTElOSywgQVBQTElOSyIgb fGsSS4cfTWxVTJu IC8+SX4iOBVpGotojKMwx8Z 3oSE7Z58vee0gDBcfuOX8RY ImBjCrklmxn7puiWx1MHkcR mluOyBt RNJsjL53CCP3jW70Yu82hQY fuSGty6eqtNb6DzHaTRLaOX F0vFdvJAwtz3EkKIGsM15ux DYxq2K9 BIIfqJuuqUDaPsVsnUG2wR4 gAOvqadano4fzwbkxPss2tz 51fMKvn9M8xNJ3Y9YcsbM7V GJvbGQg SkltsFBDzP6zicsth5edcvi cBxNyLUNiRIa3XDd0BKQywH aoCnRePA35ULD6GIApjhKeW 2FsLWFs sDliKbU7b6Q9Mu1UW1DGEvp tW4WRCPCUHMnebDC+PC90cj 11L9PyNzmdSwn6SMZfKVU1q GN7jR0m UAOfGOyfy4S0uLA8A1YnhaV uix9ah6teQZOjPBqoX75zlQ Ajj2I0CBYkaME5UDVzhOggH iBzaG93 Oyc+FKPjsAmvu6UuFmytw4a qp7kxnYo6ZqnvBQRihhCaqK lwBIJ3a3AgJx3mQHDlgWZ7x BB7jU5d HbGuYqD6EFnjZ671GjFceDI rOqvdD88mH3DbrAJ+PHRyPj a2JAYmcOdpWW8lP2LnDPBoi mctbGVm yApwGF3gREHpuvxbABXggW1 iGXEpC4f2DhTbAtO0VEriN4 XfVHSvwenuPf08aF2vRwKyK qB1OGvw Z1HfzeQ4ZKZwzSWzNAmfFBB 3N62yl7H5HWCiNVFoQAN2uV E6dZ2lmKvktukjhOCeyVmhw mVydGlj NEkuTDmgQ042WBPlnRnpOwZ vZGluZyBEYXRlOiAgMTEvMD QvMjAyNDwvdGQ+DMAxMFE7h WxlPSAn fUXiYAxsRf4djAqonKxbHR1 bERUbgsheTRIbcD7cDYYdgH GtfSueEW7rGDDfwmqxh096O iAxMHB0 KOHopPUkH6BgsG4oTaMlMUQ wUQMaJ3DliHKpFHfyN813DN ueLlW3ZDJsdnIqC3IcFDUns WduOiB0 m6Z6Ok4Rk0GxfsxnN4IdzUB wLuYpHbuyAWv8W7UqVxepgR I+IM60EBGrYV73ILw2SHB1o WxlPSdi ERGwZ0AaqM2gGuFpYKRiCLN kOyc+PHRhYmxlIHdpZHRoPS sjNVHePcSgtRntYM3sPu2yM GVyLWNv hPfkoCObIrHvz0lwHDKpADl yJO2fwLwlN1XcpGN1ECKhp2 e0Nv69O23cF6ZocNV+PGNvb LR8uMK8 pH8kLiSfAxS0SHzpI749FrJ qgOTbHrxdi0kxs1tgePm1Sp F0FOCqmuWatOyuLCW7b7PiB j56O68n IHdpZHRoPSIxNSUiIHZhbGl xqb3mzT8sXv4+WPPnxMZ2xH C8uB6lZaTsHvZ8TOohR474G nRvcCIv Kglbv5rwx3hslJm6AlHuQWA ihjToeSdjNZM3c2NeSx96P4 NshFdmo1VaDlj0gc81oURvq 5O5gAE8 W9XvABIvayefbTUggPwyDJ9 jEZEsrtzrNOBdwK0nLOQuU5 h5XxZsWqY2RZlwG5CdtdH6W GJvbGQg IKTbdENUjK8dpgphj9escjo wZsRnWGJgMTj2DYx4UUAmiS ffDzLzYSS7KaQ4MFH9vAAhz M8quMuu zksbgT3cQph+UFS8gDEuyNG VLI5nLnnlzKF+HKDxZMZ7oK rqSJgnXMDnhF2uLYOqG0m7O iAwLjA1 WWkzI6BsakK8NOOubZVaPTW ncIPEaY7cmelph3acihrrJb QiKYVwGQk5BJv8VFWmeOfmJ iBsZWZ0 GaO8BUJ8kCMloL6ksCvzece lkW2lYrd+WoslcLagRAT1LI b0K6VrUlg5GRWvqKvdSH4pe GFkZGlu Td6xxAjjfIlfZN4lGTTqlsg ey763IqKim7dsIVRdrLTiWR zuIXL9Q49py0X8EKFrUGGuW QA8jCT3 hW6oaOhzkwsyjNUzuGzrnpA zoKhfCBdyBPhnC368DDDmvE kjPhGoLCi9G5WyVvd5XDJmz EhrHA4o qWVdACovOm9qfUwaxYswOX1 kWKGvimhhs960ZvLxd1hmEX PztQEpQKytLBX9S73iz0J8P CMwMDAw XGH8aIY0hK4psJdjrjlieVX mdDsgdmVydGljYWwtYWxpZ2 74TMYgpEuyUbOqiCf6A8JpA ij1GNCw hGqsUB1qxZZfFOpeId8hrSa axMhlPW6tTDBkhotpr268Mt Xfs7mxUYPxdCAdNBhgNJY6B 01sr2W2 VODbNTAtRFF8qKE0qO6uoGk nbjogbGVmdDsgdmVydGljYW qtHSubQ804HLTbuWmrTjDrd GllbnQg SIhnULk3D7AhMvmgwYO+PC9 0ZMLgJQ54sPRzwRUym2yxgD s6JeWuRNVwNQB4tQatTSbmh 3JkZXIt D90lqMJwa9G1ISRuhNqxtPP kJyNdpJZ6oA1qWRliixide5 vzaytsGjpwa2zofi93oM36G 29sIHdp ZHRoPSIzMCUiIHZhbGlnbj0 aaI4jDy2+UEOcuBZ7oLR1sY 8pGBDoOvV5KKykA618GhQgj CIvPjxj e1uou4wptOu9KpA7VNLjesC sgEzsZIT8v5XkHl81R51eWU dpZHRoPSIyMCUiIHZhbGlnb x0ayI9c Ii8+LKVtaYM6tDD0eI8rHwE zMfC1SPmbX331IhCklLHoGi ffN57rT2NpbTS+SWZlVtk1Y CBzdHls TK6dzJSoZKmhSr4yNBY0XkJ xPrWuIUkyR8GyMRBqkbwcfr kmgEQ3ZHMlEEUaoI70Fg9tw DogMTBw fXHBaY5fcxiqf7xshealNqG yOMIdOKo5GKl8BHVmyVniJr JfXQZ4OjO7FZK2rBFkmJ7by Glnbjog uL0rS2UmRFAjghewXy14fV1 xKmTwHoW3AIhtNup+TUNDQU 5OLCBIRUFUSEVSIEVMSVpBQ kVUSDwv dGQ+WLAzJIN4tKidGNtlYQR xkH0hFERuJ2y1OaNqLwM6LB wiE6EwOWRqwghpMs11xB2lA iAwLjA1 QNyqE2MbueI8UKYjzWPaVXf yPQY0Z28xw3Y3CYSjZQPoFU H9bNO5pC3gyIyftbciqIKtp DsgdmVy lTznOYjkYDkmX306ZJZrfJu eEcLaPlV4WdD9TBE4W7ZzVb s4EPRtlTkiTU7ilYXtWAynR d7frAqv bHpmIL6aQASdqhntMSQyhT1 rJEVhxCIrwQxzYJ3jTADler dzr944XsMhRFZ1JHCxhTKjC 3HykU7b QzUsMZPaHGQkR3BnaNOiZSf nR517YJvcOtW6GCFsupHpM0 IwJEIwgGzkFhZ2m5G9Oc4qB CBZZWFy czwvdGQ+ORNkCLY5tMfrFPk oWZMbzP1jWHGvX1s0JpWeDn Q9VNorE4BvOQVjqmffHm33q W5xGgVu XlE2JZbgF0ViifM2VDFpbQD lIGmfXUI0V34xm4F9PCQqLM OnBND2zTY2zR9neSxgvcqah GVmdDsg nhGiiHnhHVmmBGseP465SZM vcDsnPkZFTUFMRTwvdGQ+PH YjOCD3tSmqJHvyRPCogY6jI FQdA4y2 SqCnAmW9SCzrG0QlTRWztja xMu17eG2tHyZrUdF7HBabK7 LqyfP2JXZkmEHaMSghWSK3D 57cx5C5 OOAxJSKzKKX1iWN0lL4hmYm nbjogbGVmdDsgdmVydGljYW lbLZspR408AAKvuXlbXsAgX 3Vycmlu CeGJrCMuLVDzEQ44XF21MT2 6O0UlFavwlMDxoLU+PHRhYm xlIHdpZHRoPScxMDAlJyBzd GknWU5p Eg7wQQMzCCSxmXxtwDKmNnP vo3sfTSHsOXthPZ7laFdgC4 PxbOQ3SKOxp7p9Zj34H62xC 3JvdXA+ LEHhvAM8cQS9qI7yIeOyBjV 6BHkaJ836RdWxtJAiNdvik1 cys4aedHc9CwPaLZHnqxYpc WduPSJ0 r3ZmMc44R36uJPuuQTUjDAD zNMCxJANqxQnlje8meI2dTt 8+LIEopFG3kZO5dL3wHkYjW kW6MSqm A120RyIgaCEqRklwG87fE6S vdXA+SBLePfd8NKDjoJnzJE 5feLCbRDucTx5cZCT4AuCsU jIwMGlu Z5YsSTDprzkgrrzxrZG8JEQ jVVNnwI26Gs0vpIwsIi1wNR JtMGO4SELkcILhK2ZhbW2nQ iAjMDAw NEFyX0EhpNGtKFasP832KKp kBwW9LYJcklLrF0SaKQOfyA muOhN1o8U3Jv4RvDrcyBLgA P0bFyHd AXe1B5IcIeo7SSWfkNkjMZ6 jqVEiUZxtMa5efRmudPcbOD 7iKTJgedacy772EpZxk7mvW DEwcHQg MAmgCSV3F95sv1Z2WCCoJWZ fDWW2xCZ2aR0fhIpuggpmjJ VmdDsgdmVydGljYWwtYWxpZ 246IHRv jWnePeUUDhm5B2OjZbc8IBM quOfeAA6noUNtPMctZs0yrZ cxuRmaDF3gMONysxuwh702P cJhp7ea WHBdaBAkGEjkAWZ8N44ju6T 2SYTjLEKzXOM0bLB7oP7rmR lnbjogbGVmdDsgdmVydGljY WwtYWxp P447YFVqfTtuMz0ZZhq0T5Y jAjw2UVEwaSimPO6iiJBtDC ypOf2qhXgycKhdLW5sCQTwi mmeo609 NcIxm4bjCRBztDVnITloBPJ 7J69ke7Z4IXArKIVrKBG5qO J1cI3scOigaxspzDPmbMbck mVydGlj GDzqUUuaK054BFUcqOubNbL heWVyOjwvdGQ+RY50cb85U3 XvUgntZzb4TGOcJDO1qDX0s D2dPWAn [facility] (more content not included)... [facility] Human papilloma virus 16+18+ 31+33+35+39+45+51+52+56+58+59+66+68 DNA [Presence] in [facility] 02-20-2024 HPV 16+18+31+33+35+39+45+5 1+52+56+58+59+66+68 DNA Probe+sig amp Ql (Cvx) Human papilloma virus 16+18+31+33+35+39+45+51 +52+56+58+59+66+68 DNA [Presence] in Cer . [facility] Comment on above: TESTS RESULT FLAG UN ITS REF RANGE LAB DIAGNOSIS: 02 NEGATIVE FOR INTRAEPITHELIAL LESION OR MALIGNANCY.Specimen adequacy: 02 Satisfactory for evaluation. Endocervical and/or squamous metaplastic cells (endocervical component) are present.Performed by: 02 Edel Sewell, Medical Record Clerk (ASCP). 02Note: Note 02 The Pap smear [...] Low,>-Panic High,A-Abnormal,AA-Critical Abnormal -----Performed at:02 WB [facility] [address] [place] [address] Dagmar Love MD, Dxsazrxal at: =G - [facility] [address] [place], [place] [id number] Director: Dagmar Love MD, Phone: [phone] at: WB - [facility] [place], [place] [id number] Director: Dagmar Love MD, Phone: [phone] No Panel Informationon 02-19 Reference Lab Test Patient Age Note . [facility] Comment on above: TESTS RESULT FLAG UN ITS REF RANGE LAB Clinician Provided Cytology Information Source.............Cervix;Endocervix No. of containers..01 ThinPrep VialAge Olafo SARIOG Amaya... FLAG LEGEND: L-Low Normal,H-High Normal,LL-Alert Low,HH-Alert High <-Panic Low,>-Panic High,A-Abnormal,AA-Critical Abnormal -----Performed at:01 =G [facility] [address] [place] [address] Dagmar Love MD, .Auto Diff 102-06-2024 Auto Motley % 6 % Normal -12 [facility] Comment on above: Performed By: #### 7 [id number] #### [facility] (DEFAULT) [address] [place] [address] Baso Abs# 0.0 x10 Normal 0.0-0.2 [facility] Comment on above: Performed By: #### 7 [id number] #### [facility] (DEFAULT) [address] [place] [address]48 Basophils/100 WBC (Bld) 0.3 % Normal 0.2-2.0 [facility] Comment on above: Performed By: #### 7 [id number] #### [facility] (DEFAULT) [address] [place] [address] 10736 Eos Abs# 0.2 x10 Normal 0.0-0.4 [facility] Comment on above: Performed By: #### 7 [id number] #### [facility] (DEFAULT) [address] [place] [address] 21118 Eosinophils/100 WBC (Bld) 3.4 % Normal 0.9-4.0 [facility] Comment on above: Performed By: #### 7 [id number] #### [facility] (DEFAULT) [address] [place] [address] 87256 Lymph Abs# 2.4 x10 Normal 1.3-2.9 [facility] Comment on above: Performed By: #### 7 [id number] #### [facility] (DEFAULT) [address] [place] [address] 44310 Lymphocytes/100 WBC (Bld) 34 % Normal 14-48 [facility] Comment on above: Performed By: #### 7 [id number] #### [facility] (DEFAULT) [address] [place] [address] 02796 Motley Abs# 0.4 x10 Normal 0.0-0.8 [facility] Comment on above: Performed By: #### 7 [id number] #### [facility] (DEFAULT) [address] [place] [address] 09187 Neut Abs# 4.0 x10 Normal 1.5-9.2 [facility] Comment on above: Performed By: #### 7 [id number] #### [facility] (DEFAULT) [address] [place] [address] 86605 Neutrophils/100 WBC (Bld) 56 % Normal 44-88 [facility] Comment on above: Performed By: #### 7 [id number] #### [facility] (DEFAULT) [address] [place] [address] CBC w/ Auto Diffon Erythrocyte distribution width (RBC) [Ratio] 14.0 % Normal 11.5-15.0 [facility] Comment on above: Performed By: #### 7 [id number] #### [facility] (DEFAULT) [address] [place] [address] Hematocrit (Bld) [Volume fraction] 41.7 % High 33.7-40.4 [facility] Comment on above: Performed By: #### 7 [id number] #### [facility] (DEFAULT) [address] [place] [address] Hemoglobin (Bld) [Mass/Vol] 14.1 g/dL Normal 11.3-15.9 [facility] Comment on above: Performed By: #### 7 [id number] #### [facility] (DEFAULT) [address] [place] [address] Man Diff? Auto Invalid Interpretation Code [facility] Comment on above: Performed By: #### 7 [id number] #### [facility] (DEFAULT) [address] [place] [address] 26314 MCH (RBC) [Entitic mass] 29 pg Normal 24-34 [facility] Comment on above: Performed By: #### 7 [id number] #### [facility] (DEFAULT) [address] [place] [address] MCHC (RBC) [Mass/Vol] 34 g/dL Normal 26-37 [facility] Comment on above: Performed By: #### 7 [id number] #### [facility] (DEFAULT) [address] [place] [address] 26303 MCV (RBC) [Entitic vol] 86 fL Normal 81-100 [facility] Comment on above: Performed By: #### 7 [id number] #### [facility] (DEFAULT) [address] [place] [address] 24979 Platelet 196 x10 Normal 138-427 [facility] Comment on above: Performed By: #### 7 [id number] #### [facility] (DEFAULT) [address] [place] [address] 86031 Platelet mean volume (Bld) [Entitic vol] 6.8 fL Normal 6.3-10.2 [facility] Comment on above: Performed By: #### 7 [id number] #### [facility] (DEFAULT) [address] [place] [address] RBC 4.84 x10 Normal 3.70-5.30 [facility] Comment on above: Performed By: #### 7 [id number] #### [facility] (DEFAULT) [address] [place] [address] WBC 7.1 x10 Normal 3.5-10.5 [facility] Comment on above: Performed By: #### 7 [id number] #### [facility] (DEFAULT) [address] [place] [address] Ferritinon 02-06-2024 Ferritin [Mass/Vol] 15.8 ng/mL Normal 12.0-150.0 [facility] Comment on above: Performed By: #### 1 [id number], [id number], [id number] #### [facility] (DEFAULT) [address] [place] [address] Iron Profileon 02-06-2024 Iron [Mass/Vol] 72.0 ug/dL Normal 28.0-170.0 [facility] Comment on above: Performed By: #### 1 [id number], [id number], [id number] #### [facility] (DEFAULT) [address] [place] [address] Iron Sat 19 % Low 20-55 [facility] Comment on above: Performed By: #### 1 [id number], [id number], [id number] #### [facility] (DEFAULT) [address] [place] [address] TIBC 384 mcg/dL Normal 250-400 [facility] Comment on above: Performed By: #### 1 [id number], [id number], [id number] #### [facility] (DEFAULT) [address] [place] [address] Transferrin [Mass/Vol] 274.6 mg/dL Normal 192.0-382.0 [facility] Comment on above: Performed By: #### 1 [id number], [id number], [id number] #### [facility] (DEFAULT) [address] [place] [address]6046 Coding Summaryon 12-11-2023 Coding Summary HTMLBase 64 TocmmeunKVa3eJw+PGhlYWQ +IT2UXOFvM94ctQRepW3iP1 NMTElOSywgQVBQTElOSyIgb pWlNK0ldRLhLUOt IC8+NI8xLEAjLewwgQPyf0J 9jLE3Y26upy7wJErxoJG3GY IyEjLutsixv0sbaAx8ANlrJ mluOyBt BULkiZ54VDX9gM14Xl60jHJ njSPfy4bcrTe6MsCmNAJwVT Z9kHtrRZzcl4FsGYKnW88iw SRnm1L8 WORyeHlwrCUkXdIilLT9uH9 yLWoswbryg4veynwqByj6dv 34kIYyg0E4jJU1R6JcguA6F GJvbGQg KvtstZSBsP5szyxyd2lqflt jTjUxIKAsBEx2HFd5TJFqfC lqNvVfXI13PPA7MKKvcgGlI 2FsLWFs qPsqNmC3h5M9Pl0DG2EGVuu iK3DGPIHBQBuqgMC+PC90cj 44V0TuFfhkXxo0PYYhBNL3d YS8cW1g JWShZXegy4P1lQO8Y0SfguP azf0yd6meLNEoWGfyI01itU Kqi5Q6TMZcwLL1FRRxhYmlH iBzaG93 Oyc+KIOsrFbea7QtQhsjs4h mo8nnlOj6KbilDGXoqlSqbS ybTBC7e4RbDs4jKENoiYJ6w QS0kQ7n UeLhGpO1MOwaW775TzFpeKV fDdtfO25tU8UpoBX+PHRyPj o1WFQsrCouTD7fV7KeWMMnr mctbGVm dWjkUB9dSMTixarwMGAgbM7 sMKHeY3i3LtPwQxS1OLgsI6 ZbOLRvclqqNx63rD9gXkUfB lX6ALok R3WcjrN2SIKsoDWhUYhzNOQ 6O55js6K3JSBgQLAjARM2qH L5iB3yrQcovykmuMOqzRmex mVydGlj FQjjYUtgT965MNTgfGlnNaF vZGluZyBEYXRlOiAgMDgvMj UvMjAyNDwvdGQ+KCSgDMK4d WxlPSAn vOXzTMdvSa9ynHgxgWuhFJ5 iDSMafwpnIYPpiB0eSTPgaI LikZfdMX2pKPCkmihco952V iAxMHB0 BBIuhSWdS9DdgC5eRxBdAXM kZZLuQ6AulFWzSHgxE938XR neApM8YFGlimRiM9JvAQQsq WduOiB0 t6D0Wb5Wq2UutwgsA9JzwWG sSjXoVuulIVs1W8ZrMwowyH I+NU26QWByXO88DHz3TPH0r WxlPSdi VXObP4HrmX6nRyVpGPZmNYQ kOyc+PHRhYmxlIHdpZHRoPS bzFWFmOwDalFywKF8jAh9tF GVyLWNv xZqpqEVvGcFcd4ebICPyURr cDK8zjSwgO1WtjGT8SDOwk5 q3Dd75G93hH0VtzGE+PGNvb HZ5lAJ9 zV7cWcTaMgW7AQgvF806WsK wxNPsDqlwl3pqm9isdUq6Ay C1CWSnqkNycGbhKBB1v0JpB q74U45p IHdpZHRoPSIxNSUiIHZhbGl aov0qzG3lTb6+LBUnwXE4iJ F7wQ0wWeWgWiE3XLtaZ562K nRvcCIv Mchdz8nne1tcfUi5KyUuVPQ mbrLmjKfqNCL4g5VbTq88C3 QvkCsqu6IrGkz3wp93gTUum 5W0bAK8 O6StWXUnuyzkrQNslRfwUU7 dVFGhefbsYIGsuN5eRKBpH4 j1HsWgKuR5JFfgE8RfurJ6U GJvbGQg WQGdpXXEpW9taddne4oohon hNpDqQHNdSDu1SQl0EPVlsY ymRcKjSKY8BqX3KME3jEMda A3fhAey oaolnD0dGmt+OOQ8hXAqxTJ NZL0mEvdwkOE+RVFoNRR4rP okEJzgOCNzkB1qGADcC2m9Y iAwLjA1 SVmwM5SwlcM1MXOsnRRpTZF gfEIQnF1kubldb8mjybapWm DaHCPtLSc7HQs6SSRayYgkV iBsZWZ0 NpX7IUB0tVClyR9feJwqiho nlI7tWgi+YiezbXgwASV6PB d8H2LdKwi3GTJwxNbxZU6nx GFkZGlu Uv8dzRsncJizEK9cTLZsgvi wm653UvCov2fwNXLjtRAwVF ggLWB9S43ey1G5WZGwCRLcU PN2kMT6 kO1yyCibvisotEOwcCniwcH rqMavOIkmCBzkD702LHJjcD rtCaNrIGu7R3UqPmk6TQEsr AqlIV9i hTJcSKrvVx8yePuecTwcZM1 pPCNyimnxm932FhCkf5mkLM BahCYsAYisTOT3T17gh1T9C CMwMDAw KBQ0lJL7mX3wmIaulfkbxXT mdDsgdmVydGljYWwtYWxpZ2 07YXXfbTpkEhRviAk2Z5EpV ni2YJTb nIltNC8fqEEhOQxySy6jfFw soJbmXN2hKEJrxklip145Hj Cfx9fwWKGicKYiFEtnBRJ1Z 43px3D3 KDQvUWNyFSM4wDS9gO2npQz nbjogbGVmdDsgdmVydGljYW qzERgfY848AOVxrVenBkOob GllbnQg PVixRJl9D4WpHqysaDM+PC9 6NRPcCH69aEUdpORqw7cuxP i2CfLzHWGsCCM6xPdkGIcje 3JkZXIt E44xbDNcb4D6KUSxqIhinYO bCzYftPT6hE6uAYhhwwiyk6 xbhiqvRvfiq7qrkj26wB50N 29sIHdp ZHRoPSIzMCUiIHZhbGlnbj0 wrH4oJu9+JLXzqEV9uQC4dE 2eAIJiOtQ6JOwnA502YaPgi CIvPjxj u7nrm8fxvXn1WsP5YQDjbgV doOfdUYC8y6DzUk46S46dWJ dpZHRoPSIyMCUiIHZhbGlnb g6xxS6a Ii8+CLGjkAE8pEN4kY7zHyY cPlC1RFijO523ZmMksSIvLm aiL06iI9IdoYE+AVBlOtr3O CBzdHls BU5sdVXgFUkcRr2xWEO2IgK kXrEgMVrpW3ZlRLSejpscee oecDD1RCByPAVjuH40Yf8ua DogMTBw nBGCuS1ysbgjf2hyvoheKmX pGHOwMIx7GAc6SJVsoRdpRh JwSVS3SpX5LZQ6pYVxdH6sl Glnbjog iC7kK2CpBPEwecjqUl42wM6 vGzNbRmO6QHyqCtf+TUNDQU 5OLCBIRUFUSEVSIEVMSVpBQ kVUSDwv dGQ+QYWnBLY2kUxqNHolKJU dcD0bNETqS1y2MzOlKhT1OJ guQ4GvPUMkmljbZw53nZ5zA iAwLjA1 SFfsJ2RovdQ5GYOtvURbXLo nNWJ2B35tm8W5VGMnNYPwJF B3xBW8kI5iqLxdfhpdbZIhh DsgdmVy pVrnXJgnGNieD831KBTplSf hMwYlKzO7PaM9SDF6R8PeNg v1KNGtaEwsUL2xgXGcSQfcR g9wsJwo oLirKC0wQYUtrmrkDHOwlI3 mHYSxjQFshPnaPK4iMRUtxt ymk839OyNrJZT9ZUVnkFCtN 1HncA0p KaCjAOSqSEShG2HjzZTrLRs wF764ZTygPhO6HSBpblMuA1 YjIMKftJurKlS1i0T1Fr7yJ CBZZWFy czwvdGQ+FOLpJBI3jFyfMHh xRFCmwF6yJVEcV2t0CyGuDl Q9YQopZ1SbUPYchkhhZg56f Y0oCrHj XbV7GTmdW6KnznV9KXDlbBR tNRgbWUM4X28kf6R0CERmMR CmEVA0pZE2yX6kmLyedzehg GVmdDsg nsDudAmgBWesUBxnM055SOP vcDsnPkZFTUFMRTwvdGQ+PH DyUDM8eElbWLbtZIPksU5zC WVoL3r3 FqPoAjC3PCioG3RoNODagjf fCj35gS0hLjSkCfI5EAzcQ5 BtukA4RNLnnWRmAMajDXK4Z 11jz1X9 XGHeMSQbSVJ0iDO2vC0zzUq nbjogbGVmdDsgdmVydGljYW wfBQioZ073BSYyxChpChGpG 3Vycmlu NeYMjKEdPAXpDQ59MN21ZY3 2T0CmKhhukMTrcMX+PHRhYm xlIHdpZHRoPScxMDAlJyBzd EnqNG8u Hc9uMDOfTDPenPpfzIMrLpY vy6ouORJvHUyfMN8rsFbtF5 HxlOH1KOVmb2e5Bp06V82lL 3JvdXA+ ZPWtrCM7tCK7vQ9rFuHyJfM 3LIytV813AnHndLGiFjcqe6 tgz6hlbKz1HjSyRETtahKmj WduPSJ0 s6MwFe47Q11rOXwoTYVdLAD vNFYlKSIkhEkjkz3mvI1xSh 8+ADTvrOK9uIP8iL3vEfOcW cQ1TQcz M746HiRgoSBgWltoB45dF3Y vdXA+THRyFym0EWKqeBbqOX 0uzIMbIMuwJq2pKCO6BdAcB jIwMGlu Z3HdTEVjbeicxvyqbKZ2WWN zBSAndR04Qo0xjXykYu7eTX HqGBT6OEQacDMbB3OucI6iY iAjMDAw CSQzR4OizJXjEBqgN220NRc vIdA7RLBedzVuW9QwSVAuoV rvGaI2k2R7Yz2KnKhofOXtS X5qXvTt BIm9Q2SiUde1JNJkeGliGR3 xxMMvBUmrDo7ijUxgvZouLG 4tGKIbakobc619DjKdm8yaV DEwcHQg GZyaRZE7A40bk0S7PVWmXFD uLXM8iZC0lE5ykXgokbfyfQ VmdDsgdmVydGljYWwtYWxpZ 246IHRv pUhbFkITSpy2R1OxUdl9KTG vcPqpHJ4pvEZeSVbtVk6yxZ bnhUplBY9hTYBpzcbvo522O xGxh7vu TPLwvSPrDGdfKCJ0X29uf5F 2BDJiXJWxTMI6oPF4sZ8zcD lnbjogbGVmdDsgdmVydGljY WwtYWxp B159MOXqfYhqFi3KHjq6E6G fBqj5ZVIerEifIS0twCKyUT ozVz8rdWzhbNkpFP2fHHMha fyax212 RdKhi9zwVLNfsRZlVCrsKOE 6I49ay1S6ILSfGKHqBYW2mH W3rW6swMxhkrkzsCRlvGdtg mVydGlj CZdrTGjhQ047NHAxnIhaNqY heWVyOjwvdGQ+UW92he17P8 LgLxmeVgp6BHEnAJJ9cLV6q W3tBWGg [facility] (more content not included)... Normal [facility] Amphetamine Screen Ql (U)Ord ered By: Andry Lacy on 12-07-2023 Amphetamines Ql (U) Amphetamines screen Negativ e [facility] Amphetamines Ql (U) Negative Negative [facility] Barbiturates [Presence] in U rine by Screen methodOrdered By: Andry Lacy on 12-07-2023 Barbiturates Screen Ql (U) Negative Negative [facility] Barbiturates Screen Ql (U) Barbiturates [Presence] in Urine by Screen method Negative [facility] Benzodiazepines Screen Ql (U )Ordered By: Andry Lacy on 12-07-2023 Benzodiazepines Ql (U) Positive High Negative [facility] Benzodiazepines Ql (U) Benzodiazepines [Presence] in Urine by Screen method High Negative [facility] Benzoylecgonine [Presence] i n Urine by Screen methodOrdered By: Andry Lacy on 12-07-2023 Benzoylecgonine Screen Ql (U) Negative Negative [facility] Benzoylecgonine Screen Ql (U) Benzoylecgonine [Presence] in Urine by Screen method Negative [facility] Cannabinoids [Presence] in U rine by Screen methodOrdered By: Andry Lacy on 12-07-2023 Cannabinoids Screen Ql (U) Positive High Negative [facility] Comment on above: These are unconfirme d results and should not be used for legal purposes. Drug Cut-Off Concentration: AMPH 1000 ng/mL LUIS ANTONIO 200 ng/mL JOHN 200 ng/mL COCM 300 ng/mL OP 300 ng/mL PCP 25 ng/mL THC 20 ng/mL Cannabinoids Screen Ql (U) Cannabinoids [Presence] in Urine by Screen method High Negative [facility] Comment on above: These are unconfirme d results and should not be used for legal purposes. Drug Cut-Off Concentration: AMPH 1000 ng/mL LUIS ANTONIO 200 ng/mL JOHN 200 ng/mL COCM 300 ng/mL OP 300 ng/mL PCP 25 ng/mL THC 20 ng/mL HCG ( test) IA.rapi d Ql (U)Ordered By: Andry Lacy on 12-07-2023 HCG ( test) Ql (U) Negative [facility] HCG ( test) Ql (U) Urine human chorionic gonadotropin (hCG) detection by immunoassay [facility] Opiates [Presence] in Urine by Screen methodOrdered By: Andry Lacy on 12-07-2023 Opiates Screen Ql (U) Negative Negative [facility] Opiates Screen Ql (U) Opiates [Presence] in Urine by Screen method Negative [facility] Phencyclidine Screen Ql (U)O rdered By: Andry Lacy on 12-07-2023 Phencyclidine Ql (U) Negative Negative [facility] Phencyclidine Ql (U) Phencyclidine [Presence] in Urine by Screen method Negative [facility] Alanine aminotransferase [En zymatic activity/volume] in Serum or PlasmaOrdered By: Romeo Santana on 11-28-2023 ALT [Catalytic activity/Vol] 14 U/L 7-52 [facility] Albumin [Mass/volume] in Ser um or Plasma by Bromocresol green (BCG) dye binding methoOrdered By: Romeo Santana on 11-28-2023 Albumin BCG dye [Mass/Vol] 4.6 g/dL 3.5-5.7 [facility] Alkaline phosphatase [Enzyma tic activity/volume] in Serum or PlasmaOrdered By: Romeo Santana on 11-28-2023 ALP [Catalytic activity/Vol] 41 U/L 34-104 [facility] Aspartate aminotransferase [ Enzymatic activity/volume] in Serum or PlasmaOrdered By: Romeo Santana on 11-28-2023 AST [Catalytic activity/Vol] 13 U/L 13-39 [facility] Basophils Auto (Bld) [#/Vol] Ordered By: Romeo Santana on 11-28-2023 Basophils (Bld) [#/Vol] 0.0 10*3/uL 0.0-0.2 [facility] Basophils/100 WBC Auto (Bld) Ordered By: Romeo Santana on 11-28-2023 Basophils/100 WBC (Bld) 0.3 % . [facility] Bilirubin.total [Mass/volume ] in Serum or PlasmaOrdered By: Romeo Santana on 11-28-2023 Bilirubin [Mass/Vol] 0.5 mg/dL 0.3-1.0 [facility] Calcium [Mass/volume] in Ser um or PlasmaOrdered By: Romeo Santana on 11-28-2023 Calcium [Mass/Vol] 9.4 mg/dL 8.6-10.3 [facility] Carbon dioxide, total [Moles /volume] in Serum or PlasmaOrdered By: Romeo Santana on 11-28-2023 CO2 [Moles/Vol] 27.8 mmol/L 21.0-31.0 [facility] Chloride [Moles/volume] in S betty or PlasmaOrdered By: Romeo Santana on 11-28-2023 Chloride [Moles/Vol] 106 mmol/L 98-107 [facility] Creatinine [Mass/volume] in Serum or PlasmaOrdered By: Romeo Santana on 11-28-2023 Creatinine [Mass/Vol] 0.62 mg/dL 0.60-1.20 [facility] Eosinophils Auto (Bld) [#/Vo l]Ordered By: Romeo Santana on 11-28-2023 Eosinophils (Bld) [#/Vol] 0.2 10*3/uL 0.0-0.45 [facility] Eosinophils/100 WBC Auto (Bl d)Ordered By: Romeo Santana on 11-28-2023 Eosinophils/100 WBC (Bld) 3.5 % . [facility] Erythrocyte distribution wid th Auto (RBC) [Ratio]Ordered By: Romeo Santana on 11-28-2023 Erythrocyte distribution width (RBC) [Ratio] 14.0 % 11.9-15.3 [facility] Globulin Calc (S) [Mass/Vol] Ordered By: Romeo Santana on 11-28-2023 Globulin (S) [Mass/Vol] 2.0 g/dL [facility] Glucose [Mass/volume] in Ser um or PlasmaOrdered By: Romeo Santana on 11-28-2023 Glucose [Mass/Vol] 76 mg/dL 70-100 [facility] Hematocrit Auto (Bld) [Volum e fraction]Ordered By: Romeo Santana on 11-28-2023 Hematocrit (Bld) [Volume fraction] 40.1 % 34.0-46.4 [facility] Hemoglobin [Mass/volume] in BloodOrdered By: Romeo Santana on 11-28-2023 Hemoglobin (Bld) [Mass/Vol] 13.6 g/dL 11.8-15.4 [facility] Leukocytes [#/volume] correc terry for nucleated erythrocytes in Blood by Automated counOrdered By: Romeo Santana on 11-28-2023 WBC corrected for nucl RBC Auto (Bld) [#/Vol] 6.4 10*3/uL 3.8-11.6 [facility] Lymphocytes Auto (Bld) [#/Vo l]Ordered By: Romeo Santana on 11-28-2023 Lymphocytes (Bld) [#/Vol] 2.4 10*3/uL 1.00-4.8 [facility] Lymphocytes/100 WBC Auto (Bl d)Ordered By: Romeo Santana on 11-28-2023 Lymphocytes/100 WBC (Bld) 38.3 % . [facility] MCH Auto (RBC) [Entitic mass ]Ordered By: Romeo Santana on 11-28-2023 MCH (RBC) [Entitic mass] 29.3 pg 24.7-34.3 [facility] MCHC Auto (RBC) [Mass/Vol]Or dered By: Romeo Santana on 11-28-2023 MCHC (RBC) [Mass/Vol] 33.8 g/dL 32.0-35.0 [facility] MCV Auto (RBC) [Entitic vol] Ordered By: Romeo Santana on 11-28-2023 MCV (RBC) [Entitic vol] 86.7 fL 80-100 [facility] Monocytes Auto (Bld) [#/Vol] Ordered By: Romeo Santana on 11-28-2023 Monocytes (Bld) [#/Vol] 0.4 10*3/uL 0.0-0.8 [facility] Monocytes/100 WBC Auto (Bld) Ordered By: Romeo Santana on 11-28-2023 Monocytes/100 WBC (Bld) 5.8 % . [facility] Neutrophils Auto (Bld) [#/Vo l]Ordered By: Romeo Santana on 11-28-2023 Neutrophils (Bld) [#/Vol] 3.3 10*3/uL 1.8-7.7 [facility] Neutrophils/100 WBC Auto (Bl d)Ordered By: Romeo Santana on 11-28-2023 Neutrophils/100 WBC (Bld) 52.1 % . [facility] No Panel InformationOrdered By: Romeo Santana on 11-28-2023 Estimated GFR (CKD-EPI) > 60.0 mL/Min [facility] Creatinine Clearance (Chem N/A [facility] Nucleated erythrocytes [Pres ence] in Blood by Automated countOrdered By: Romeo Santana on 11-28-2023 Nucleated RBC Auto Ql (Bld) 0.0 /100{WBC} 0-0.5 [facility] Platelet mean volume Auto (B ld) [Entitic vol]Ordered By: Romeo Santana on 11-28-2023 Platelet mean volume (Bld) [Entitic vol] 6.8 fL 6.3-10.7 [facility] Platelets Auto (Bld) [#/Vol] Ordered By: Romeo Santana on 11-28-2023 Platelets (Bld) [#/Vol] 159 10*3/uL 150-450 [facility] Potassium [Moles/volume] in Serum or PlasmaOrdered By: Romeo Santana on 11-28-2023 Potassium [Moles/Vol] 4.2 mmol/L 3.5-5.1 [facility] Protein [Mass/volume] in Ser um or PlasmaOrdered By: Romeo Santana on 11-28-2023 Protein [Mass/Vol] 6.6 g/dL 6.4-8.9 [facility] RBC Auto (Bld) [#/Vol]Ordere d By: Romeo Santana on 11-28-2023 RBC (Bld) [#/Vol] 4.63 10*6/uL 3.60-5.00 [facility] Serum or plasma albumin/glob ulin mass ratioOrdered By: Romeo Santana on 11-28-2023 Albumin/Globulin [Mass ratio] 2.3 {ratio} [facility] Serum or plasma anion gap de terminationOrdered By: Romeo Santana on 11-28-2023 Anion gap [Moles/Vol] 10.4 mmol/L 6.0-15.0 [facility] Sodium [Moles/volume] in Ser um or PlasmaOrdered By: Romeo Santana on 11-28-2023 Sodium [Moles/Vol] 140 mmol/L 136-145 [facility] Urea nitrogen [Mass/volume] in Serum or PlasmaOrdered By: Romeo Santana on 11-28-2023 Urea nitrogen [Mass/Vol] 7 mg/dL 7-25 [facility] WBC Auto (Bld) [#/Vol]Ordere d By: Romeo Santana on 11-28-2023 WBC (Bld) [#/Vol] 6.4 10*3/uL 3.8-11.6 [facility] Coding Summaryon 11-14-2023 Coding Summary HTMLBase 64 UgfknmagELg4dYe+PGhlYWQ +[id number] NMTElOSywgQVBQTElOSyIgb vRgEJ4mvEVtJEUk IC8+BN1kKEOrStszoORdz5R 4wVF4H15szt2yXJwgqCR6JS OgYhWyrtqem6eqlMa1NMghA mluOyBt HMJpnO64IHU3oM17Uu92hKJ btFFvg1ajhWy3EyHfLVKfSY Q6bKpcZDadq7UgXSYiR65ll IXgd9N6 RKHpuRbxyTUaVhYiyMK3yT4 gCHumhlwba0jyoojlZsb2do 37aKBer8R7bBL4I1OjfcT1Y GJvbGQg PxoqmSWHaO6airfvl6tqzai uPxZfOHCoDZt5PWd3XYEyvW ktRoUzGI38FXG2SWXfdmMvY 2FsLWFs kOpvZhB8z0T6Uu7HA9BZGru mI9BRHJONEHnaqQI+PC90cj 25V1YyNlqyMft9IMOjIOJ2p BR6wJ1r VSVxIVwrl6L6cCP4B1TlvgC ans9mg9otQXJlJLllK26vuN Puz2V2GLUyzRJ2YUGchIhqE iBzaG93 Oyc+RMEerEndc1LdJaeaq5m ir7euaKw0MkcmUXXczgJpbP eeZKL0k6WeNb0lJUHigIB4u NT1sU3c BvMoFrV2ZSuiH434EeLhiDS zKxulK46zU3UrhJM+PHRyPj j4QTMnnIhmFE3lW6OwKGWsj mctbGVm eLllKA3dQPOgmogiNHGxzB8 wZYWgP2o9VpJsYrO0ALgaF6 MgVOStteyyXh43hB4fGvHoM sK8XMod A1YhhiW4CFMvaWDaOOusMWQ 8J00nr9O3EPBzUXXfYBQ9oX G7dP4msFfstmdxgRWxrGyau mVydGlj XWywJIewH012UFBplPiqXxK vZGluZyBEYXRlOiAgMDcvMj kvMjAyNDwvdGQ+CFVbOIH6r WxlPSAn iYWxTOjtYv8buPzihWhwHW3 dQWLlobliPGLmsW1nLEKkfL PtcZhzII8tXBWdzftdy473I iAxMHB0 ETFpnNLlT2CnlO7mUcGqTWX xFRXtQ8BdkNTxSVeuP487AO szOqR3TXZcjrIgM6ScYOLpj WduOiB0 n7R6Nh5Ng7HlvzbqW8WnyTC aChVfOfwjOWa0F0DgJyefuS I+QY12ZFXjED32VLs0QVH8a WxlPSdi BFSoE3TtqG4wToVcPSVqCDD kOyc+PHRhYmxlIHdpZHRoPS adRPYzMcDsyMeeMR1xHk0uL GVyLWNv tKfrrDTqYkQjo4lgBJYrBTb oTG1tcAeqC1SjfWY9XJMbh5 t0Pz30S59tM0TahHR+PGNvb HQ8rZP0 cF1qZuVvDbW3ECkeX160InO ejLIhThrii2hfb6yipYs1Na U7GCWkzfNzcLrdQPP9r3MfF p73W62h IHdpZHRoPSIxNSUiIHZhbGl suc3tkZ2wYn8+PENeuHA7sS P5uG4cLnIbQaG3OFxwJ346P nRvcCIv Qzolg2rng7inoMe3ClLmJAH kriUghCflJWE7n8XrBg59Y6 DjmDodq7LdVlw6be49qFRov 0B9jSJ8 P3BeEYTwztwejTCjuWjmPE6 cTGZbgxdeFCQhtN4zSVToV4 o8XaCsHzP2IOflE3VvbwN8M GJvbGQg NOCwmYPQtO6tqcmmm7welta hVjRyVVQjLQa9XSw5LBZzeP ddSdLaGTZ5KgY0BEI0rDNgw B8llHst mmhmfX7zKie+MRQ6nQJkuGN YWI0qWvjhyTY+PRMnFLF5uC tvIKvdEPNhkK3eWSWtJ5r6B iAwLjA1 SIgvI7IfpsJ7CEMzuZVzTCS onPMLyH7xtpywx1blrvufTu IrTRRxYTj7NOo0WPSptNhaZ iBsZWZ0 TuU2DOU1bDTikR7evTjqqri bmK5gNab+OpsvaBvwPDR5OM t6N7QuJqg9ISSqjIiuKA5ge GFkZGlu Yd9lyMjceMphIK3hBVXpzek aa057DhMgj4fbZXEpaTOaTT vbVMY9M53bf4Y8GGPdLXHxG LM8zAA4 gU9kgBodujerwZKsgEinnsO udYmbHVpvOYxtM396PPOitC rtFsHxCHu9C4LhVaq1LYCqw JpuIY6v oGGgZCecPt7phHmqkIzzVI8 hPQAyookrw073AyHch1kaOF VtsGQeHVgjDVF6D12ze3K6U CMwMDAw OQK1gFL7cS0yiDcunrjikLM mdDsgdmVydGljYWwtYWxpZ2 49TIZhhAeoZgCvuHk6Q8NdG xr1KGPs uGguQJ0oaYOyZXpsPq9jyDf veOqePV4vFYWogizej785Ry Fsx2vnTRYwlVSgZRooNQM3Z 97aq6S9 PEUrKTTlOHL1nPO6uJ6toKu nbjogbGVmdDsgdmVydGljYW baXFqcQ022VOEfxEgcNxKmx GllbnQg CAtdXZy5K3ZgLyxcoFO+PC9 8XWXaIB57aUYyqTYtx1rldJ d2JtYxLRLgLGG0uEqcYZwaq 3JkZXIt W64hmHNnf2V4KTBvcRyqlNR fOcHfvZR1bZ6wPHfbnbpqr0 zdluavIjwxe1evzh23eH67D 29sIHdp ZHRoPSIzMCUiIHZhbGlnbj0 frI1jGr3+RTKpsKC8iXQ9dE 6qNWHtQwD1TSciT619LjKum CIvPjxj p0vxu1afsYp6NzD4FXKqxqC sbMqyTKG0d0MtFq80F76yTO dpZHRoPSIyMCUiIHZhbGlnb t4sfB8j Ii8+NPUxwEV3oZB6tO2zKrC oOkC4LRabP874AkZuzSOvZr zlP76mP7LvjJI+TVDeFdp0Z CBzdHls DM7mtYKnNNtwUq9nPSP1UeX gEkGoHImtV0HyVCVwrvuxkq xjqOY3GKOhQYAyiY26Vn0mx DogMTBw zBGIgP6ngdvyk2qoswtiEhZ qJURwPQw3WVt9NLIuoFucCj RcBOT7KjA2FTH9xULghT7uu Glnbjog fS2cT9FkEDMsqrmyKk26oL5 fGcIzMpZ5RPwaPbe+TUNDQU 5OLCBIRUFUSEVSIEVMSVpBQ kVUSDwv dGQ+OTWrZDY4jElzJQijMHM zjX6uEXOzG8j6BsVgGrA9SF vrT3HmMHNmlgjyDj44zG2jD iAwLjA1 VAyxU7NwypE3TRRnnOWuMEv mGJJ3Q22dj5O7XXQgHBYgCY C9gXY6bY1miKkyronkwAHls DsgdmVy bZucFCakRVhzE241QYVxwPt wOaIwCiF1YrG4JYX1D2AcWr c7SKCvpGgbMV6anYXxNWfnQ s1drBal yXomTM2xTAIdhtdxSZTnfO8 cBEJueGFrkNrfZH0uNALxft wnc117IhBuTOZ7IOBvfQLjP 7AgrR9b DhTwNPVdGAWsC5BqyKXvOJv bG836YGmsRkW1HUUbrnFlE2 YjGHMdkGzeGlH0a5Y3Mh7dK CBZZWFy czwvdGQ+JJMqAJK5gVtnDSq oRQMzsM4uKNMdZ7d8CaIcAh H6DPuzT1PhNMIvqmzvLx33z B6pEaLg TxM5TQdjC1RxchM6YLKggYU eLLvcGTB5M90tg4O2EZWbEV FiGGO3nZT5tP6ssNrrfehrw GVmdDsg qpAemOfgTDwgXXkyQ140RDD vcDsnPkZFTUFMRTwvdGQ+PH ZfGJV7kTcxAXptJDUegT0hZ MIbF8m6 TqFiKuW3NMmeS3KjFHRfsuq qBk67zC0kMwDgXpU7RDmvD9 JbsfH5TEAghYBbXPhjFHG4P 35ls7J0 HGCsCCRzYXR7nGK8xJ9abYv nbjogbGVmdDsgdmVydGljYW zaGGsiG135DTUdyVilXdSzU ANyRU6m eTwvdGQ+WG96kg13S3KyKcd sGpr2NMGfHEB1cCL4aZ5rDA FwSXtbj3L3jHL0J2GokjPpr m0pr3mu PCZwFHswX96qfHJdr0Z3FLL mnPN2TJDdqTdeDfVwmX00Cb c+OKWekQgqu6HlIilgs5vby 6frnLz0 FyIkTRFlcmErpGugGAB5a3C jSo77W79sKTwaCSCmYHWdFU VyIQIfmJdmux2itM1eMm2+P GNvbCB3 vBF6tG8zCfEuJdT1LCnaQ82 2RyHkqJJkBoesl3lgf8gdyX c9GwHkQQDzdwIioArlDFT8h 2TiOq29 K8XaxWwfl5BbYgc0zo54iXW ky1E9xAS3Q2ReJLKowvqlcB LxgNqeAX7nTIOawuxdBLVvi Z2pWDGi B0m7SyNtYwP7QBqmN9DmrdN 3TOFwqMIoVQHugWQMeN2lek jxk8qtpapeDfTbWAYyCIk7O At2WKEt qJrcJqPpLTH1UmN4DAC5oNA eoP0ekNrqcqgrkA9bLsn+UG n5p2bprEVrZT8bjRS3ZJ16H A92cUAi k0S9bYJ5H6DwPTEbpyrlmqu dcVV9JGGuLQVqcP82An8mhE jnVk2fGXXtXDF1JYHmeZVtV 1ClgB1f WeUgCQWrAPRsL1VriSObFMi rG438MTirJqK6EQZelgDwD6 IyUVNnxNscSnV1r2V0Lj0DQ J40VV67 BL41iSCwl5Q9wOV9R9ReZSH eskcajxdsgCI1MOVmPPCynU 62Sd7hoIpyYa2fMFSpZIJ4W FRpbWVz S5VrbH8kRgPtMOTnOUHzV6L dpPEcVAcbN900ALpoDnQ3RI RiciBbJ4WdHVIpgNqsFeZ8s 2M6Pi1C Ex34WL57FH61aIMzu3O9sMX 7K8MyJZAufqjzmrsaxCL5MS YlJGHgtG96Wf5iaYcfLi2gT CAxMHB0 LQPyeXLpD8WzxF7fUnWxXER bGSKmM1DuqWPjUThfK786MF joXkV5FPFsulQmR0ElEWZye WduOiB0 w0W1Px8SOAobjih2R6IiGtz vdHI+YI29QKObTD86tMAtrX Ler2vqaCd7ZjHzGWTnHNJ3b WxlPSdi b3J (more content not included)... [facility] Coding Summary HTMLBase 64 PiwjzoqiCEs2vXd+PGhlYWQ +LY8BMAMpG52atOMvgZ1oL6 NMTElOSywgQVBQTElOSyIgb eFqTC1kdKHbAHXc IC8+AW9lUSJoOxvjyLNrh0J 3aBL8W56hsc4yQHvtqHY6VE XqEzPjkowiy3irtAz5AHdmR mluOyBt SFJqnQ83IGS9lH98Ty60jWH yrHVpv9bsvTg0QfHbLGJzEG F3yQndPImdi5HdOGByX23mq EOpc3C3 KOScoLhkiLNqQvCbgJW3iO5 yRQojtsnva1okgvibOjq9rh 75vTVbc6U2zVO9C1SobvF0V GJvbGQg NfzkrGBHaP1hqibqw5zwbgr gJmQeLVUeJMe7QQu1VDDuuA vjGeQiHS22DCB6XOEsulBwQ 2FsLWFs mRlmGsA4m7P8Di7FW6APSml uZ6QDBJXXYRodsKC+PC90cj 27J6HuSdzbMji5AXYuIEO0o HZ9nT0p IEQdKJbvv1P3pMM5S7PvohN miu4nk4xfWALoXXasE87pgU Xez8O3AFPneDC2SGIzcUbcI iBzaG93 Oyc+SBFmeZahm0IrSdigf3k tr2rbhYc9NlqtPFJjkcJsnG xfZPR5o3GyUv4iCYUoxTI3n QV1cX2d SpCvXgB9HRgrV449AeLumYO hIwccT81wV1DkzNL+PHRyPj g5FPNqrUccMM9qG8DqCEIqj mctbGVm uXttEI1bOOQsnjzvTIRdvM1 nEBTnA0s0RuLeJjO6UToeI1 OqOQBjjrmjEv25kD6lTcHiX dI6OIfk K2FfuuM3AGKtqNLpOBwcOAU 9O64hh6V7YNCxGSSxVYJ1dD G4pY4ypQqnpfsnlFDrrQktg mVydGlj AJtfXYldS228MXFioRqrUdO vZGluZyBEYXRlOiAgMDcvMj kvMjAyNDwvdGQ+LHUyOHB9d WxlPSAn dJTqVQqhWu1asKulhViaFF9 jUOAjeuwjBTBtyW1jDYUcmT QtnSbtTM5wOFDbnjtcy581Q iAxMHB0 IVCynKKcW7JukN7tKaCyGAN oPLDwO8HinPPnIQyjB737KF ymWtL7NZEdwsGcX9UdXFGsw WduOiB0 e8P6Ts3Qm5HmizhvO4RrwEF xAmMaVulvZYs7W2FxPwjxiS I+FS78WZCeXS63NOm9DKG9e WxlPSdi WNJvS8SpbT4pUiZzROGqMBV kOyc+PHRhYmxlIHdpZHRoPS swDLIsZxWekFwiOF6uNv3fY GVyLWNv sHgteQNzVcUhj0zkMSEiLTp uNV1naJjeB1KurFH4GJNax9 n3Sl70W41sZ3SrrUK+PGNvb DI9iGC9 tT0wAmIgDwM9PJzpB501EbJ ruTDyLozzi2vnr9fnxBn3Um W6QWQmvlBehEmpKZW8b9CbE s34S37z IHdpZHRoPSIxNSUiIHZhbGl nsk7beF5nMh1+ZKCipAE1xT Z5hQ4yEoVuWdL2YNwbH111N nRvcCIv Vkkdy9unu4gdgVw0XxLiVFS ptxTclRbuORK6r6HzRe93Z5 SeiUkle8NzCrz4xr49pZYjv 7F9iIX6 D3UpTWIgywgkdNLivZosAN6 kHRXbshioXGDevL8tRMNvH1 a8EqWyWlN4CMqkT9BqmkT5D GJvbGQg AYNlwDYZuH1uviobn8mnrrj cHpAjWITyGZe8GRl3NOCndF vkOcKvSYZ8EnC6FPL1lUYxl K5tsCui qcpijJ4yAsi+OEE2uVLgsLB LZY5zTzcbtOX+UZUtCWP7mF rqQShkHXVtyM0pKREmY7w4L iAwLjA1 ETdvF3FdeoG7OBYztEKnPPE kjZKGpA8ncpvbb4dwndclLb QhJQGxJEm5MUt7KYGnzQjnY iBsZWZ0 IqN1XPI7rNQaoU2tlFzmvwm wvI5sPau+ElgitOwhXUK0DC e2E4VlEol2LEYenPplLE7ih GFkZGlu Ws7xbLrgyPxkSC3lLMQgult ey174FdYlt7wbBTYidADzRO zlBIN5C65zv8W1ZXCjTYFyM DZ5qFI1 iR3awXmbrdeirVZpiUrsqaY jqVxxNUjbFLblV506FGXtuN bfOaAzZWx4L0RiIhc6EQZks OrqNO7q rSTzJZdkGd4tdMfgiIfgII8 lAWPqdxfez776HpCka3udDD YgfPQnWFmhXJR6Q10lv3R2T CMwMDAw BXI7tVM3oM9aiUmvdqfuuTV mdDsgdmVydGljYWwtYWxpZ2 57FANojBixUzPkhNf1G7BeR ho9WBJt iOvtXE7maPYnCQkoOn2tiRw qyRhrPR1jKAHgckstp358Ze Hko3cwLMLjtSQtCUseXFU2D 10ao0P1 QEXwSTGeBSX7tFM3zR4vqIw nbjogbGVmdDsgdmVydGljYW rjSRfzC077GACouAbaGxSnh GllbnQg YQvoFZg3E6RgJeefwPW+PC9 9JUEnCJ83mFTvoETbf6zgmA h0FkQmMYGiYVH1sSptPQfna 3JkZXIt K27zoAKrx5Z6YMAblOeatQJ nIwSvlTO5yO6eSQgqkytez7 xqkvyxOhyie2lwlt72iC46L 29sIHdp ZHRoPSIzMCUiIHZhbGlnbj0 mnZ4yTj0+VSSmeVY6tRF3yD 2pPWQgVjC6VHnbT628JoCdq CIvPjxj s1sps7anvRh1UxE9APSdgiJ ceUhoWSM0y5CpGn28N91aNQ dpZHRoPSIyMCUiIHZhbGlnb v7idV4p Ii8+XBBhqJN7fDX9xP0qVrQ mJjJ0YOynZ884ChCvpNWjPc gtG88gJ9OjiBY+EICaTza2X CBzdHls DK9roRGsYVflLy8yEQJ4QwP kEbLeLFtlD2TmLTPxcporgf bfxBA6UWVgPXPdrT91Lz4xo DogMTBw pOABzB6msceqa7dgrllvTbL pXLCrMXj5KWx6IKBftGmmPn GfPIS4RgU0AME6mQJveL6xf Glnbjog jL1rV4KzKOLerhjzYs95nK2 bKaSuNnB0CKaiSrb+TUNDQU 5OLCBIRUFUSEVSIEVMSVpBQ kVUSDwv dGQ+UWVdEVX8cKrsYGqoIVA qpO1vYENmJ8d5ZxLaRgZ0BY baF6CmCGMdfkeqGw38bX3jP iAwLjA1 SWaaL7IcltT9GQPebJPmPBg sFGC4L02fk7E2XWFcHKBeOZ V2fHX1pE0klSqfeaexiXHcu DsgdmVy lNgqLAnkYLldE219EESdzHb tNaTvIzT9VoY0JSD5X3QtPj b7MPMekNwbOP0qsCPuGQmrY g1lkVuv iBvlMB7aCNFmiiteDCSkoS2 xBQEuaAGacGnmJB9xIQDwky iyk045RlBkUTI4PPFewMNtP 1NplB4y WoWlDDFyXTUrQ8OtnHXmQSm cI043VNbvGkV4RJAqnbIuK9 UxUQYpkWnvNlA6x9N2Jc3yR CBZZWFy czwvdGQ+GPDnUMK2eJdoQUa mECQbrX2eGBJcM4o2QnMhYt A1YUbmQ4YnNJFtpuulNz59t Y6bRgCe AyG5VLnzN2OgvlY7QNHpdQI gUFelROT7V27og3A8DKZqJD BqAKX2gSI1iV0xsMgoiveoz GVmdDsg asAtxBvkOWevNPwlT433OPM vcDsnPkZFTUFMRTwvdGQ+PH PfQNG9aPzlBXwlUIBjgK4nT JGmA4i2 UyXbOwA5SDlkN7JkVKUopkl nZi33rC7dRmSfBfR1ITmtQ3 RhdlQ6ABJmcBIdWVdhHPS3H 20ij7H8 DFRpKIDcPIM2oIP5vF2pwGp nbjogbGVmdDsgdmVydGljYW neVQxaF798KNVdmZfzZmJbQ IAoCS9z eTwvdGQ+QR13tt43P1FvNot tHye8POMtUMJ7yYS0rE4oFW GnASect0S3bXR1P0OitiPgv i9qe4ji XFOoKIiqA45qeXFjw8Y3KSK tgXD5GQDtkEylUnYleC75Io c+EYJbrCaku2OzTffjx1nnl 6mqdRm5 DlTvABNuukHtbYiuWRS7j8G qSo64F35eLTkjRPQhEWEhVA OcBNJamVzxzm7wvG3xWn1+P GNvbCB3 mUB0oD6hOnSoXjB6XUqeX93 9ZfOoeOKjZgvmu7ndq8jstN r6WuMnBDVobmAkoDxeRUX7r 4UbWl98 B5VrtRsog2DxCuq1aq30eIF wm6H6fZF5M3YmWPYryzotiB TelFhoPA4eTHMdoqxsGPHvk G0oAYHs S4v5BvVyPoL6GQvwW3HvnyF 3TTSrqONpXAXnrVNEtU1cij uyf8lkvjvgUgCgMIGkGRc5R Pa0ZVKa yBbtOoYtUDF0KqW7WLX6jGM jdH4eyCgcpvawjX4iXlg+UG y6h6kqtHGvVO8jzXJ2KJ49Y R34zNRv l9E1zLB3R2VaWLNakrgljgd ugAH7RAWkXMMtlI29Th1pxM fdXm2kXDUmCIP5RFEtuITdT 0AawV2c IgHkUXNoIJMiI5FceZDjIFv tJ114TWpqReY6ZWLgsgCeL1 TmHZBjlPdkKpG5k7G6Rh8BB S72VC11 CB48zSQjm5X8oNZ3M6PkGPJ traczupoijII6MNRdNBVeaX 24Xb7zoSsxAq8qUBNkOSE4J FRpbWVz H0BmiW9bZiSlJHVmNMSqI9S riHXpEYzqX845BZwtEaJ5PP PbkaEoZ8SaLGQviEocRtF4f 8V8Gp1Q Oe82JS98FH30iJZqy2D0pVV 3B9CyTHJmoifdmzwqvNB5SV GoXTFfvU31Lp7mvAwvMz5xH CAxMHB0 GCFlaLHoO4MdrW6vGfDoLWE cZCGiK4WftKPpTCueK043PL jgBrS4EECjzjKvS0ZjFBUgf WduOiB0 t1T4Fu0GXNwabis0D7VuSth vdHI+RV80RYUhTO56pQJcaG Xru8yxbSk8YyPoFYZwSBI4m WxlPSdi b3J (more content not included)... [facility] Provider Orderson 11-09-2023 Provider Orders [id number] GTIFF [facility] Chlamydia/GC Amplification L Con 11-04-2023 Chlamydia trachomatis, AC LC Negative Invalid Interpretation Code Negative [facility] Comment on above: Performed By: #### 7 [id number] #### [facility] (DEFAULT) [address] [place] [address] Neisseria gonorrhoeae, AC LC Negative Invalid Interpretation Code Negative [facility] Comment on above: Result Comment: Perf ormed At: =G [facility] [address], [place] [id number] Ivan Davila MD Ph:[phone] Performed By: #### 7 [id number] #### [facility] (DEFAULT) [address] [place] [address] Consent Formson 11-03-2023 Consent Forms [id number]#[id number] [facility] ED Note-Nursingon 11-03-2023 ED Note-Nursing Fluconazole 150mg ta b [facility] Patient contacted and notified of the results of her culture and the prescription that was sent for her. Instructions on how to take the medication was given, patient verbalized understanding [facility] .Auto Diff 1on 11-02-2023 Auto Motley % 9 % Normal -12 [facility] Comment on above: Performed By: #### 1 [id number], [id number] #### [facility] (DEFAULT) [address] [place] [address] Baso Abs# 0.0 x10 Normal 0.0-0.2 [facility] Comment on above: Performed By: #### 1 [id number] #### [facility] (DEFAULT) [address] [place] [address] Basophils/100 WBC (Bld) 0.2 % Normal 0.2-2.0 [facility] Comment on above: Performed By: #### 1 [id number], [id number], [id number] #### [facility] (DEFAULT) [address] [place] [address] Eos Abs# 0.3 x10 Normal 0.0-0.4 [facility] Comment on above: Performed By: #### 1 [id number], [id number] #### [facility] (DEFAULT) [address] [place] [address] 45899 Eosinophils/100 WBC (Bld) 9.0 % High 0.9-4.0 [facility] Comment on above: Performed By: #### 1 [id number], [id number] #### [facility] (DEFAULT) [address] [place] [address] 47272 Lymph Abs# 0.4 x10 Low 1.3-2.9 [facility] Comment on above: Performed By: #### 1 [id number], [id number], [id number] #### [facility] (DEFAULT) [address] [place] [address] 69172 Lymphocytes/100 WBC (Bld) 12 % Low 14-48 [facility] Comment on above: Performed By: #### 1 [id number], [id number] #### [facility] (DEFAULT) [address] [place] [address]84 Motley Abs# 0.3 x10 Normal 0.0-0.8 [facility] Comment on above: Performed By: #### 1 [id number], [id number], [id number] #### [facility] (DEFAULT) [address] [place] [address] 69668 Neut Abs# 2.4 x10 Normal 1.5-9.2 [facility] Comment on above: Performed By: #### 1 [id number], [id number], [id number] #### [facility] (DEFAULT) [address] [place] [address] 82477 Neutrophils/100 WBC (Bld) 70 % Normal 44-88 [facility] Comment on above: Performed By: #### 1 [id number], [id number] #### [facility] (DEFAULT) [address] [place] [address] 81522 C Genitalon 11-02-2023 C Genital Heavy growth of Yeas t No CARLOS performed on this organism No growth of GC at 3 days. 4+ Gram Positive Rods Few Yeast No WBC's seen. Gram Negative Diplococci not seen. Normal [facility] Comment on above: Performed By: #### 7 [id number] #### [facility] (DEFAULT) [address] [place] [address] CBC w/ Auto Diffon 4 Erythrocyte distribution width (RBC) [Ratio] 13.7 % Normal 11.5-15.0 [facility] Comment on above: Performed By: #### 1 [id number], [id number] #### [facility] (DEFAULT) [address] [place] [address] Hematocrit (Bld) [Volume fraction] 40.5 % High 33.7-40.4 [facility] Comment on above: Performed By: #### 1 [id number], [id number], [id number] #### [facility] (DEFAULT) [address] [place] [address] Hemoglobin (Bld) [Mass/Vol] 13.7 g/dL Normal 11.3-15.9 [facility] Comment on above: Performed By: #### 1 [id number], [id number], 8889852 #### [facility] (DEFAULT) [address] [place] [address] Man Diff? Auto Invalid Interpretation Code [facility] Comment on above: Performed By: #### 1 [id number], [id number], [id number] #### [facility] (DEFAULT) [address] [place] [address] 26742 MCH (RBC) [Entitic mass] 29 pg Normal 24-34 [facility] Comment on above: Performed By: #### 1 [id number], 5598116, 8485360 #### [facility] (DEFAULT) [address] [place] [address] 67922 MCHC (RBC) [Mass/Vol] 34 g/dL Normal 26-37 [facility] Comment on above: Performed By: #### 1 [id number], [id number], 3261424 #### [facility] (DEFAULT) [address] [place] [address] 66786 MCV (RBC) [Entitic vol] 85 fL Normal 81-100 [facility] Comment on above: Performed By: #### 1 [id number], 3450637, 5154380 #### [facility] (DEFAULT) [address] [place] [address] Platelet 106 x10 Low 138-427 [facility] Comment on above: Performed By: #### 1 [id number], 7117396, 0377081 #### [facility] (DEFAULT) [address] [place] [address] Platelet mean volume (Bld) [Entitic vol] 7.0 fL Normal 6.3-10.2 [facility] Comment on above: Performed By: #### 1 [id number], 5143686, 1751017 #### [facility] (DEFAULT) [address] [place] [address] RBC 4.74 x10 Normal 3.70-5.30 [facility] Comment on above: Performed By: #### 1 [id number], 3930674, 8351963 #### [facility] (DEFAULT) [address] [place] [address] WBC 3.5 x10 Normal 3.5-10.5 [facility] Comment on above: Performed By: #### 1 [id number], 3814159, 1980465 #### [facility] (DEFAULT) [address] [place] [address] Standardon 11-02-2023 eGFR Non AA >60 Invalid Interpretation Code [facility] Comment on above: Performed By: #### 1 [id number], 0628505, [id number] #### [facility] (DEFAULT) [address] [place] [address] eGFR AA >60 Invalid Interpretation Code [facility] Comment on above: Performed By: #### 1 [id number], 5608033, 1630524 #### [facility] (DEFAULT) [address] [place] [address] Albumin [Mass/Vol] 4.1 g/dL Normal 3.5-5.0 [facility] Comment on above: Performed By: #### 1 [id number], 9292294, 5918636 #### [facility] (DEFAULT) [address] [place] [address] Albumin/Globulin [Mass ratio] 1.7 {ratio} Normal 1.4-2.6 [facility] Comment on above: Performed By: #### 1 [id number], 5616883, 2543514 #### [facility] (DEFAULT) [address] [place] [address]369 Alk Phos 40 IU/L Normal 32-91 [facility] Comment on above: Performed By: #### 1 [id number], 8457198, 6210388 #### [facility] (DEFAULT) [address] [place] [address] 73484 ALT [Catalytic activity/Vol] 20.0 U/L Normal 14.0-54.0 [facility] Comment on above: Performed By: #### 1 [id number], 6168865, 0449398 #### [facility] (DEFAULT) [address] [place] [address] 91227 Anion gap [Moles/Vol] 9.5 mmol/L Normal 5.0-19.0 [facility] Comment on above: Performed By: #### 1 [id number], 7165591, [id number] #### [facility] (DEFAULT) [address] [place] [address] 66199 AST [Catalytic activity/Vol] 19 U/L Normal 15-41 [facility] Comment on above: Performed By: #### 1 [id number], 3082221, 4083391 #### [facility] (DEFAULT) [address] [place] [address] 69113 Bili Total 0.7 mg/dL Normal 0.3-1.2 [facility] Comment on above: Performed By: #### 1 1419296, 4677042, 6375516 #### [facility] (DEFAULT) [address] [place] [address] 60181 Calcium [Mass/Vol] 8.4 mg/dL Low 8.9-10.3 [facility] Comment on above: Performed By: #### 1 6698259, 4611685, 8041140 #### [facility] (DEFAULT) [address] [place] [address] 30513 Chloride [Moles/Vol] 109 mmol/L Normal 101-111 [facility] Comment on above: Performed By: #### 1 7788346, 8723557, 1735657 #### [facility] (DEFAULT) [address] [place] [address] 76624 CO2 [Moles/Vol] 21 mmol/L Normal 21-32 [facility] Comment on above: Performed By: #### 1 2882328, 8583670, 3404338 #### [facility] (DEFAULT) [address] [place] [address]6911 Creatinine [Mass/Vol] 0.71 mg/dL Normal 0.60-1.30 [facility] Comment on above: Performed By: #### 1 [id number], 3959540, 8655728 #### [facility] (DEFAULT) [address] [place] [address] 71087 Globulin (S) [Mass/Vol] 2.4 g/dL Normal 1.5-4.3 [facility] Comment on above: Performed By: #### 1 [id number], 4597145, 6619676 #### [facility] (DEFAULT) [address] [place] [address] 25085 Glucose [Mass/Vol] 95.0 mg/dL Normal 74.0-118.0 [facility] Comment on above: Performed By: #### 1 [id number], 8942445, 7355605 #### [facility] (DEFAULT) [address] [place] [address] 54156 Osmolality 270 mOsm/L Invalid Interpretation Code [facility] Comment on above: Performed By: #### 1 [id number], 3135661, 3894449 #### [facility] (DEFAULT) [address] [place] [address] 08178 Potassium [Moles/Vol] 3.5 mmol/L Low 3.6-5.1 [facility] Comment on above: Performed By: #### 1 1579392, 3682008, 8104904 #### [facility] (DEFAULT) [address] [place] [address] 11716 Protein [Mass/Vol] 6.5 g/dL Normal 6.5-8.1 [facility] Comment on above: Performed By: #### 1 8338955, 4651686, 3247008 #### [facility] (DEFAULT) [address] [place] [address] Sodium [Moles/Vol] 136.0 mmol/L Normal 136.0-144.0 [facility] Comment on above: Performed By: #### 1 5002401, 2387294, 7805842 #### [facility] (DEFAULT) [address] [place] [address] Urea nitrogen [Mass/Vol] 7 mg/dL Low 8-26 [facility] Comment on above: Performed By: #### 1 5543581, 5275354, 4270531 #### [facility] (DEFAULT) [address] [place] [address] Urea nitrogen/Creatinine [Mass ratio] 9.8 mg/mg Normal 4.6-16.2 [facility] Comment on above: Performed By: #### 1 4578841, 9319005, 6152586 #### [facility] (DEFAULT) [address] [place] [address] CT Abdomen/Pelvis w/ Contras ton 11-02-2023 CT [...] 3:37 pm Technologist: Adama DUFFY [facility] ED Clinical Summaryon 2023 ED Clinical Summary [facility] Emergency Department [address] [place] [address] ED Clinical Summary PERSON INFORMATION Name: JAZ SANDERS Age: 28 Years Sex: FEMALE : 1995 MRN: Acct#: Visit Reason: Abdominal pain; Nausea; FLANK/HIP PAIN, FEVER Arrival: 11/02/2023 07:57:28 Discharge: 11/02/2023 13:31:00 LOS: 000 05:34 Check In: 11/02/2023 07:57:28 Checkout:11/02/2023 13:31:00 Address: [facility] [address] PCP: Amanda Ford CNP PROVIDER INFORMATION Provider [...] Follow-Up: With: Address: When: Amanda Ford CNP [address] [place] [address] [id number] Within 3 to 5 days DIAGNOSIS: 1:Hip pain Patient Understands: Yes - Patient/family/caregive r verbalizes understanding of instructions given Comment: [facility] ED Patient Summaryon 024 ED Patient Summary [facility] Emergency Department [address] [place] [id number] PATIENT DISCHARGE INSTRUCTIONS Patient Information Name: JAZ SANDERS Age: 28 Years Date of : 1995 Reason For Visit: Abdominal pain; Nausea; FLANK/HIP PAIN, FEVER Arrival Time: 11/02/2023 07:57:28 Primary Care Physician: Amanda Ford CNP Attending Physician: Narda Phillips MD Comment: Visit Diagnosis: Diagnoses This Visit Abdominal pain ([id number]) Hip pain (M25.559) Nausea ([id number] ) The Pharmacy at [facility] is open Tuesday through Tuesday from [...] alcohol and/or drug addiction problems; contact the [facility] 08/11 Crisis Hotline -text 4hope to 741741. [...] documents With: Address: When: Amanda Ford CNP [address] [place] [address] Within 3 to 5 days Medication Information: The exam and treatment you received today in the [facility] Emergency Department were for an urgent problem and are not intended as complete care. It is important for you to follow up with a doctor, nurse practitioner, or physician?s perinatal breastfeeding assistant for ongoing care. If your symptoms [...] so we can reach you if necessary. [facility] Emergency Department has provided you with a complete list of medications post discharge. Please inform your physician assistant primary care/provider of your visit and for further instruction on these medications. Any specific questions regarding your chronic medications and dosages should be discussed with your primary care physician(s) and/or pharmacist. New Medications [facility] [address], [place] [id number], [phone] cyclobenzaprine (cyclobenzaprine 10 mg oral tablet) 1 [...] topic (more content not included)... [facility] Extra Greenon 11-02-2023 Tube Collected Yes Invalid Interpretation Code [facility] Comment on above: Performed By: #### 1 [id number], [id number] #### [facility] (DEFAULT) [address] [place] [address] Test Urine U Preg Negative [facility] Comment on above: Performed By: #### 7 [id number] #### [facility] (DEFAULT) [address] [place] [address] U Preg Internal Control Pass [facility] Comment on above: Performed By: #### [id number] #### [facility] (DEFAULT) [address] [place] [id number] UA [id number] 11-02-2023 UA Bacteria Trace [facility] Comment on above: Order Comment: Urina lysis Microscopic order added on by Code[employer] Expert Rules system. Performed By: #### 7 [id number] #### [facility] (DEFAULT) [address] [place] [address] UA Mucous 1+ [facility] Comment on above: Order Comment: Urina lysis Microscopic order added on by [employer] Expert Rules system. Performed By: #### 7 [id number] #### [facility] (DEFAULT) [address] [place] [address] UA RBC None Seen [facility] Comment on above: Order Comment: Urina lysis Microscopic order added on by [employer] Expert Rules system. Performed By: #### [id number] #### [facility] (DEFAULT) [address] [place] [id number] UA Squam Epi Few [facility] Comment on above: Order Comment: Urina lysis Microscopic order added on by Discern Expert Rules system. Performed By: #### [id number] #### [facility] (DEFAULT) [address] [place] [address] UA WBC None Seen [facility] Comment on above: Order Comment: Urina lysis Microscopic order added on by Discern Expert Rules system. Performed By: #### 7 [id number] #### [facility] (DEFAULT) [address] [place] [address] UA w Culture if Ind Standard on 11-02-2023 Breakpoint UA Normal [facility] Comment on above: Performed By: #### 7 [id number] #### [facility] (DEFAULT) [address] [place] [address] Color (U) Dark Yellow [facility] Comment on above: Performed By: #### 7 [id number] #### [facility] (DEFAULT) [address] [place] [address] Culture? Not Indicated Invalid Interpretation Code [facility] Comment on above: Result Comment: Resu lt created by rule GL_MAGR_ADD_UA_CULT Performed By: #### 7 [id number] #### [facility] (DEFAULT) [address] [place] [address] Glucose (U) [Mass/Vol] Negative [facility] Comment on above: Performed By: #### 7 [id number] #### [facility] (DEFAULT) [address] [place] [address] Ketones Ql (U) TRACE [facility] Comment on above: Performed By: #### 7 [id number] #### [facility] (DEFAULT) [address] [place] [address] Micro? Indicated Invalid Interpretation Code [facility] Comment on above: Result Comment: Resu lt created by rule GL_MAGR_ADD_UA_MICRO Performed By: #### [id number] #### [facility] (DEFAULT) [address] [place] [address] UA Bilirubin MODERATE Abnormal [facility] Comment on above: Performed By: #### 7 [id number] #### [facility] (DEFAULT) [address] [place] [address] UA Blood Negative Normal NEGATIVE [facility] Comment on above: Performed By: #### 7 [id number] #### [facility] (DEFAULT) [address] [place] [address] UA Clarity SL CLOUDY Abnormal CLEAR [facility] Comment on above: Performed By: #### 7 [id number] #### [facility] (DEFAULT) [address] [place] [address] UA Leuk Est Negative Normal NEGATIVE [facility] Comment on above: Performed By: #### 7 [id number] #### [facility] (DEFAULT) [address] [place] [address] UA Nitrite Negative Normal NEGATIVE [facility] Comment on above: Performed By: #### 7 [id number] #### [facility] (DEFAULT) [address] [place] [address] UA pH 6.0 Normal 5-8 [facility] Comment on above: Performed By: #### 7 [id number] #### [facility] (DEFAULT) [address] [place] [address] UA Protein 30 Abnormal NEGATIVE [facility] Comment on above: Performed By: #### 7 [id number] #### [facility] (DEFAULT) [address] [place] [address] UA Spec Grav >=1.030 Normal 1.001-1.035 [facility] Comment on above: Performed By: #### 7 [id number] #### [facility] (DEFAULT) [address] [place] [address] UA Urobilinogen 1.0 mg/dL Normal 0.2-1.0 [facility] Comment on above: Performed By: #### 7 [id number] #### [facility] (DEFAULT) [address] [place] [address] Urine Source Clean Catch [facility] Comment on above: Performed By: #### 7 [id number] #### [facility] (DEFAULT) [address] [place] [address] Wet Mount.on 11-02-2023 Wet Mount. Negative Normal [facility] Comment on above: Performed By: #### 7 [id number] #### [facility] (DEFAULT) [address] [place] [address] Coding Summaryon 10-26-2023 Coding Summary HTMLBase 64 FzwqukhpAPz6aAp+PGhlYWQ +UI8AOPHtT95rdGSfnI8zI6 NMTElOSywgQVBQTElOSyIgb jVgAV9kgNYmCPUj IC8+OI1zTRRqTlpghARqp2G 9xKT7A76inb0lGDtouEK6ZS AcAoNwgmndu1ylwEn6EYgiY mluOyBt AYJzpP84SSA5uX74Ai40lRL akFVcv5hfoRn2JcKsVKHrDV E7uHziEBxyi1IjRKZjY54th UMxb1N2 ITUcpXwfqMTtTfFhwFN7xR9 vDCbjdgpcq1mfsozoSzm6yb 18sKUeh9J7cJY7B8DfjdR4U GJvbGQg AvoauIUCwH3pxrvat9yvtbh mMgHnSMSzLSn3XLb8AQUwbV kqWfWnZE79JFR2AICjmoWkH 2FsLWFs mUsmZbG1a9B3Kg6HK9VTRtc tF2OPJHXLPIutcKV+PC90cj 38Y9PfMgsnCya8TSRbAFH6o GR5bH1f LSGfHStje5O2hTM9D4CsakZ hxb3io8bmHTYlAGzoS88vwW Dzv6J2VECrzBV2ZWVkiEbcF iBzaG93 Oyc+ISXvbBltq7VaNxfed2h do0gzhPx1UpxpSJKnriCmpR fqAIW7f7LeRx6mAAOmyFU3j JT5eC5b RwQaUfD8SUmnE937OpYmvYU wLnivI44gG9WqlQN+PHRyPj k1WRJbpEwsSE4qZ6PpBZOjo mctbGVm xHdlZY4gRXKnxrzuYSVhnT3 fYSUnS3y9CaGhKcM1BYtvA9 GdLMTcbhqpSb48jD0aFlYtO tT7WYjp Z5XggzV3LSYdhLDyTReuIHF 7E05pi4G3DIFtDHXvULR6qI V1gL8xuTujyexmmCThkWoaq mVydGlj UVmhUZewO352TDMgrIohEdF vZGluZyBEYXRlOiAgMDcvMT AvMjAyNDwvdGQ+HJZvREE4l WxlPSAn eBElNYphDy2fnGkztIrcYK2 cEOSgnmmnUMFkuO7bWHAtbA OcoEocLT9gOKLnpzemr922O iAxMHB0 DLIwqYZoN4GosW0nQeOxJGF wPGQgP4SlyAVfFImoO506LH adFxT6MAKlqpXaU2PuJAUcl WduOiB0 r5C7Eg2Ty1PdnejcJ5OjzMX zNhGxDmtbHSv1E1XhPjrecF I+DW98HQAaDU12VPp0LUJ4i WxlPSdi AEYeP7SgeF7kKvPlRNUmYMI kOyc+PHRhYmxlIHdpZHRoPS soRKVuMkJjbVqpQY7uFn0nB GVyLWNv gXvusWMgBnKjd3skKPZtZKg nXI7xjMvkO0CubGT0FXHac7 n9Up38Q02rN9BwuXK+PGNvb MX1dAB1 fG2yXeLeZwL8UYraP463VlC laYMeJsdtk9xgo5yupDx1Bn R1NPRfppPjzNubMJH1l8XaW i81A67i IHdpZHRoPSIxNSUiIHZhbGl axt8mpP6rDy1+ESHbiFT9vA F3vH9sFzUzJmC9LHyoF309H nRvcCIv Bqokp4jfr6pybPl0CxJeVCK fifFqnNrpEUY0c2IoHg67F9 YenDcxz8HaVld4lm32gIXio 9G3oPH1 B4ZlGRTlmdksuLBclCudNF3 vYHEdidmqCUFtqZ8kYWZnQ5 n1NdDvXkM1RIfmR8QasyM8G GJvbGQg LNRmhGFOoH9ycjyhz3dfigj tOkEzWIYbZSi3EYg0QQJtaC scTuXlEAG6YdY4ALW5vURpi P1yaPgs kiksbQ7wKhs+CEU1sXYisRN TIM6oNluyyUI+LYWcTGF9fO ozILjqYDOwzA7eFXCxC1n2E iAwLjA1 NUmeK2AwfrQ4DKIzcLCnBAW ppIQIvA5umzdpz1cplroxSy ZrKYCcECi0QJs1HGVmlEoxP iBsZWZ0 FeS9SRO3jYRciW1ehKkjdpb bqA8tFjk+KqjygSrnIJC7YE i5M9ZrLll5GDOllVupWC5cd GFkZGlu Zz2ggTzrkSvfQP3lUWFabdk yj405NfMrc9cbOHNueADyVG dhKPQ4E44sj9S9HNOwMUWbB KQ2nVY2 sE4qgOhngbhiaICvnGpikyE kzGjxYSprFBqtA413HYXnlA ilHwCvSSu2A8YgLni4BQYwk MiqKZ9s cKPhYNocYo2ngKomyGucYE4 oNITqsrbmk152SgNkp4rtRW ZgbEZfSCdzCSZ8C64de8L5B CMwMDAw UGG8iSQ8vH5ohSbttgpoiHU mdDsgdmVydGljYWwtYWxpZ2 74IIJqxPnaVcYeiMk0J9QqB ak3YYUn xNmyIY9ikARdPCdzQs9mjXa fbYkcNN6rFFZgxvouz410Ao Euv7tjILSheJUzQMuuZBB3A 19pf1G0 FTHpOBNkQEA6gRJ4tS3efEp nbjogbGVmdDsgdmVydGljYW vjRKnwQ281NIRyjAcvIqZjk GllbnQg TCjsWNl4V5NwIbvnzFI+PC9 9KEPfBX49kFAvoCMdc7apqO e4CxTwPBDiEIV9lHgqIFvty 3JkZXIt T86juFYfj1I3OIVhuHboiHE fWdJdtWE9fU5iXDtanzcdc1 tlllrePhlyp6jzpw17zI11K 29sIHdp ZHRoPSIzMCUiIHZhbGlnbj0 lsV2sBj1+RYEseEA3rKG7zR 1lHSSiGxV0JOxkX474YjOhq CIvPjxj b9drp6jawGp8MaS9VWIdwlX gwRguMXJ4m1SyIt24Y89hXS dpZHRoPSIyMCUiIHZhbGlnb t9mkV6k Ii8+FQPsyGQ1pLF2iJ4eMhD jGrM7LReyI008WuJmmGYlUu oaQ60sP5ObkLV+SQXkNku1R CBzdHls FN5vqKDnQMnqJy2hOPF1NhQ iMvCqTYipE8ShEMYfospzfe itvIN0CHIiAWXhoZ01Kl9us DogMTBw pMZBcG2mfhkru0elkteoUlY gPDEmQKq8HIy2LQOhrYbkIn RpVCE6GuV8HBA8xADirS5hd Glnbjog oQ6wP2BdZRWvjiayCb72mO8 iXeIiWsH6QYamSwf+TUNDQU 5OLCBIRUFUSEVSIEVMSVpBQ kVUSDwv dGQ+XIWjSWR3qIpjIAemUIQ uiY0aDSWuZ4k4EeJbBiE6CH boP9KgLYXjsbxzTy55jR2eM iAwLjA1 OOcnG1BbyrK1ZIPgnGTsRCm wCKL5P95jt7F6RKBoGEKnJC Z1eTT6oG1prBecpqvwwWOai DsgdmVy eVqiWYhrWUzgN015HZUbdGc eOpFqFiL8WzS3XDX4J5NcXl e1NCAnkEdeZZ7qlQFqKKmqF r4rrXtw qHkyUU6zMHOhmsmbVBZvbT5 uCXDtoPBenVprXH2qTUGroi wey925TkOuOYK4ARDdmZZaL 0PzhV6p HrYjEJXlITHjR5QztQHcOMv jR667QGveWnG3AALgpaXvH3 EdCRHiiWsuZxQ0k2R5Yf2uE CBZZWFy czwvdGQ+VEOsZLX4eNgtTCr rESUdgN3mFVSxH4k9RvZgYc X3LTolX1VrTTJggrhnCx80i P4xItRf CjD8QFwjK2RrdzX7EKAajHX hUBnuAGN3A78ho3T3FBDfRK AdGVV5rDX7wI5nhGbkzckwr GVmdDsg loDpfTddMAcgYDtuM125HHD vcDsnPkZFTUFMRTwvdGQ+PH AxZDK3xSutRMbvZUEjaF2oX KDgE6r0 ReEfZmM8JCuzB7YiYSLokmy vDc76kF8sDwJlAxK7MDsbE1 EolsR5GBOhqGYvAMrfPON0C 76np6F8 UVNgHOMjEMD1jYN6mJ6suMm nbjogbGVmdDsgdmVydGljYW bdKOesO829DCQaeSsbSpQtY 3Vycmlu BmZSqXWvSZWmPM08SM22XQ2 3C8MzAduldSTkyAR+PHRhYm xlIHdpZHRoPScxMDAlJyBzd EhqQO8m Df2zTNXtLGVdtBbifXFmMtX li7czVYTuMBbePR8qdZbeY1 AccMQ2ZDXwx8h7As02Q09tX 3JvdXA+ OCMwyKC0wAM0pS2eGpJxEvD 5DMxlL847IoXxbNWvQjsnm7 emw0zenNx4IkRyCJKggiFtf WduPSJ0 p4LaLg50S45pAJuqMGDeHUV pNKYeCOEwsSyjrf8xuX3yFh 8+EEJgwQE0rMG2pD9tCdLuW zC5OQht C878UxOjgQGiSmzgR28xK3V vdXA+TTPcBke1JHSxnNobXX 5anMOcHYheMt0oBRL3TdFhE jIwMGlu N7ZwXAKxshrvebzxxCB6CAS vDODoqO86Ic1qyDkgLo2kCF VhOUU5IWQdeSQcL9YsvZ1jR iAjMDAw UKUqI0UwlTOhJAuoE845RFk lHmP7IMFkdhBsO5AxNDVmaF anPfC6r4R7Fm0BmJrssIKeQ U2gRwMq JRk7W4OcAoc1IHIgwJdaMZ0 yaFPnJVjeNi2ycJcvzDpfKN 2cCPLlvslrm906InLct0ndR DEwcHQg ZGywBSX2B62jk4P5MROaLKR gNQP0qBG5wJ3kkEfvnrgfgV VmdDsgdmVydGljYWwtYWxpZ 246IHRv vXdmWiGREuz4K2EfXmn8YLH boHjbOA7kiATjVVvlRq9vyU ayqHnbXI5aZHLicjtrj504C qNfo8mt BJDywDXvIIlrBTO4A44jx0O 6VIAdRNHgSLX1oPQ1wA3dnY lnbjogbGVmdDsgdmVydGljY WwtYWxp S320TPAwuEmsUg0AEly1U3B pLme5IOMjsAokHM0tlLHmPG stHa2lyEvvjAwvSG1nWFZve pzvo477 MuJht2vzKQLspKCzBRbgUPV 1Q62rm4E9QZBvERKmUDR1iE E6fN3eaSzajhefwEKmiTlbr mVydGlj APxhYGbbN864XVKjtNiaHjM heWVyOjwvdGQ+WT88ab14C7 GwOhsyJaj8KPTaKHJ6aLS9f R3eAFXk [facility] (more content not included)... Normal [facility] Basophils Auto (Bld) [#/Vol] on 09-15-2023 Basophils (Bld) [#/Vol] 0.0 x10 0.0-0.2 [facility] Basophils/100 WBC Auto (Bld) on 09-15-2023 Basophils/100 WBC (Bld) 0.3 % 0.2-2.0 [facility] Eosinophils/100 WBC Auto (Bl d)on 09-15-2023 Eosinophils/100 WBC (Bld) 2.7 % 0.9-4.0 [facility] Erythrocyte distribution wid th Auto (RBC) [Ratio]on 09-15-2023 Erythrocyte distribution width (RBC) [Ratio] 14.1 % 11.5-15.0 [facility] Hematocrit Auto (Bld) [Volum e fraction]on 09-15-2023 Hematocrit (Bld) [Volume fraction] 41.4 % High 33.7-40.4 [facility] Hemoglobin [Mass/volume] in Bloodon 09-15-2023 Hemoglobin (Bld) [Mass/Vol] 14.0 g/dL 11.3-15.9 [facility] Iron binding capacity [Mass/ volume] in Serum or Plasmaon 09-15-2023 Iron binding capacity [Mass/Vol] 405 mcg/dL High 250-400 [facility] Iron saturation [Mass Fracti on] in Serum or Plasmaon 09-15-2023 Iron saturation [Mass fraction] 12 % Low 20-55 [facility] Laboratory - Chemistry and C hemistry - challengeon 09-15-2023 Iron [Mass/Vol] 48.0 ug/dL 28.0-170.0 [facility] Transferrin [Mass/Vol] 289.2 mg/dL 192.0-382.0 [facility] Leukocytes [#/volume] correc terry for nucleated erythrocytes in Blood by Automated counon 09-15-2023 WBC corrected for nucl RBC Auto (Bld) [#/Vol] 6.4 x10 3.5-10.5 [facility] Lymphocytes Auto (Bld) [#/Vo l]on 09-15-2023 Lymphocytes (Bld) [#/Vol] 2.2 x10 1.3-2.9 [facility] Lymphocytes/100 WBC Auto (Bl d)on 09-15-2023 Lymphocytes/100 WBC (Bld) 34 % 14-48 [facility] MCH Auto (RBC) [Entitic mass ]on 09-15-2023 MCH (RBC) [Entitic mass] 29 pg 24-34 [facility] MCHC Auto (RBC) [Mass/Vol]on 09-15-2023 MCHC (RBC) [Mass/Vol] 34 g/dL 26-37 [facility] MCV Auto (RBC) [Entitic vol] on 09-15-2023 MCV (RBC) [Entitic vol] 87 fL 81-100 [facility] Monocytes Auto (Bld) [#/Vol] on 09-15-2023 Monocytes (Bld) [#/Vol] 0.4 x10 0.0-0.8 [facility] Monocytes/100 WBC Auto (Bld) on 09-15-2023 Monocytes/100 WBC (Bld) 6 % 1-12 [facility] Neutrophils Auto (Bld) [#/Vo l]on 09-15-2023 Neutrophils (Bld) [#/Vol] 3.7 x10 1.5-9.2 [facility] Neutrophils/100 WBC Auto (Bl d)on 09-15-2023 Neutrophils/100 WBC (Bld) 57 % 44-88 [facility] No Panel Informationon 09-14 Add Manual Differential Auto Auto [facility] Eosinophils # (Auto) 0.2 x10 0.0-0.4 [facility] Platelet mean volume Auto (B ld) [Entitic vol]on 09-15-2023 Platelet mean volume (Bld) [Entitic vol] 6.7 fL 6.3-10.2 [facility] Platelets Auto (Bld) [#/Vol] on 09-15-2023 Platelets (Bld) [#/Vol] 179 x10 138-427 [facility] RBC Auto (Bld) [#/Vol]on RBC (Bld) [#/Vol] 4.76 x10 3.70-5.30 [facility] Follitropin [Units/volume] i n Serum or PlasmaOrdered By: LEOBARDO BARROSO on 06-23-2022 Follitropin Qn 6.2 m[IU]/mL [facility] Comment on above: FEMALE NORMALS (DELROY ENOPAUSE) MID-FOLLICULAR PHASE: 3.9-8.8 mIU/mL MID-CYCLE PEAK: 4.5-22.5 mIU/mL MID-LUTEAL PHASE: 1.8-5.1 mIU/mLFEMALE NORMALS (POSTMENOPAUSE): 16.7-113.6 mIU/mLMALE NORMALS: 1.3-19.3 mIU/mL Prolactin [Mass/volume] in S betty or PlasmaOrdered By: LEOBARDO BARROSO on 06-23-2022 Prolactin [Mass/Vol] 7.58 ng/mL 3.34-26.[address] [facility] [address] biopsyOrdered By: Lisha Ford on 06-16-2022 Transferrin [Mass/Vol] 393 mg/dL 180-380 [facility] Iron [Mass/volume] in Serum or PlasmaOrdered By: Amanda Ford on 06-16-2022 Iron [Mass/Vol] 34 ug/dL 40-150 [facility] Iron binding capacity [Mass/ volume] in Serum or PlasmaOrdered By: Amanda Ford on 06-16-2022 Iron binding capacity [Mass/Vol] 550 ug/dL 255-450 [facility] Iron saturation [Mass Fracti on] in Serum or PlasmaOrdered By: Amanda Ford on 06-16-2022 Iron saturation [Mass fraction] 6.2 % 20-50 [facility] Anisocytosis LM Ql (Bld)Orde red By: Farhad Lashonda on 06-11-2022 Anisocytosis Ql (Bld) Marked [facility] Basophils Auto (Bld) [#/Vol] Ordered By: Farhad Lashonda on 06-11-2022 Basophils (Bld) [#/Vol] N/A [facility] Basophils/100 WBC Auto (Bld) Ordered By: Farhad Lashonda on 06-11-2022 Basophils/100 WBC (Bld) N/A [facility] Basophils/100 WBC Manual cnt (Bld)Ordered By: Farhad Lashonda on 06-11-2022 Basophils/100 WBC (Bld) 1 % 0-2 [facility] Eosinophils Auto (Bld) [#/Vo l]Ordered By: Farhad Lashonda on 06-11-2022 Eosinophils (Bld) [#/Vol] N/A [facility] Eosinophils/100 WBC Auto (Bl d)Ordered By: Farhad Lashonda on 06-11-2022 Eosinophils/100 WBC (Bld) N/A [facility] Eosinophils/100 WBC Manual c nt (Bld)Ordered By: Farhad Lashonda on 06-11-2022 Eosinophils/100 WBC (Bld) 7 % 1-3 [facility] Erythrocyte distribution wid th Auto (RBC) [Ratio]Ordered By: Farhad Lashonda on 06-11-2022 Erythrocyte distribution width (RBC) [Ratio] 26.1 % 11.9-15.3 [facility] Hematocrit Auto (Bld) [Volum e fraction]Ordered By: Farhad Lashonda on 06-11-2022 Hematocrit (Bld) [Volume fraction] 25.7 % 34.0-46.4 [facility] Hemoglobin [Mass/volume] in BloodOrdered By: Farhad Lashonda on 06-11-2022 Hemoglobin (Bld) [Mass/Vol] 8.0 g/dL 11.8-15.4 [facility] Hypochromia LM Ql (Bld)Order ed By: Farhad Lashonda on 06-11-2022 Hypochromia Ql (Bld) Moderate [facility] Leukocytes [#/volume] correc terry for nucleated erythrocytes in Blood by Automated counOrdered By: Farhad Lashonda on 06-11-2022 WBC corrected for nucl RBC Auto (Bld) [#/Vol] 5.0 10*3/uL 3.8-11.6 [facility] Lymphocytes Auto (Bld) [#/Vo l]Ordered By: Farhad Lashonda on 06-11-2022 Lymphocytes (Bld) [#/Vol] N/A [facility] Lymphocytes/100 WBC Auto (Bl d)Ordered By: Farhad Lashonda on 06-11-2022 Lymphocytes/100 WBC (Bld) N/A [facility] Lymphocytes/100 WBC Manual c nt (Bld)Ordered By: Farhad Lashonda on 06-11-2022 Lymphocytes/100 WBC (Bld) 56 % 18-42 [facility] MCH Auto (RBC) [Entitic mass ]Ordered By: Farhad Lashonda on 06-11-2022 MCH (RBC) [Entitic mass] 21.1 pg 24.7-34.3 [facility] MCHC Auto (RBC) [Mass/Vol]Or dered By: Farhad Lashonda on 06-11-2022 MCHC (RBC) [Mass/Vol] 31.2 g/dL 32.0-35.0 [facility] MCV Auto (RBC) [Entitic vol] Ordered By: Farhad Lashonda on 06-11-2022 MCV (RBC) [Entitic vol] 67.6 fL 80-100 [facility] Microcytes LM Ql (Bld)Ordere d By: Farhad Lashonda on 06-11-2022 Microcytes Ql (Bld) Marked [facility] Monocytes Auto (Bld) [#/Vol] Ordered By: Farhad Lashonda on 06-11-2022 Monocytes (Bld) [#/Vol] N/A [facility] Monocytes/100 WBC Auto (Bld) Ordered By: Farhad Lashonda on 06-11-2022 Monocytes/100 WBC (Bld) N/A [facility] Monocytes/100 WBC Manual cnt (Bld)Ordered By: Farhad Lashonda on 06-11-2022 Monocytes/100 WBC (Bld) 5 % 2-11 [facility] Neutrophils Auto (Bld) [#/Vo l]Ordered By: Farhad Lashonda on 06-11-2022 Neutrophils (Bld) [#/Vol] N/A [facility] Neutrophils/100 WBC Auto (Bl d)Ordered By: Farhad Lashonda on 06-11-2022 Neutrophils/100 WBC (Bld) N/A [facility] Nucleated erythrocytes [Pres ence] in Blood by Automated countOrdered By: Farhad Lashonda on 06-11-2022 Nucleated RBC Auto Ql (Bld) N/A [facility] Platelet adequacy [Presence] in Blood by Light microscopyOrdered By: Farhad Lashonda on 06-11-2022 Platelets LM Ql (Bld) Normal Normal Fir [facility] Platelet mean volume Auto (B ld) [Entitic vol]Ordered By: Farhad Lashonda on 06-11-2022 Platelet mean volume (Bld) [Entitic vol] 8.2 fL 6.3-10.7 [facility] Platelet morphology finding [Identifier] in BloodOrdered By: Farhad Lashonda on 06-11-2022 Platelet morphology finding Nom (Bld) Normal Normal [facility] Platelets Auto (Bld) [#/Vol] Ordered By: Farhad Lashonda on 06-11-2022 Platelets (Bld) [#/Vol] 165 10*3/uL 150-450 [facility] Polychromasia [Presence] in Blood by Light microscopyOrdered By: Farhad Lashonda on 06-11-2022 Polychromasia LM Ql (Bld) Marked [facility] RBC Auto (Bld) [#/Vol]Ordere d By: Farhad Lashonda on 06-11-2022 RBC (Bld) [#/Vol] 3.80 10*6/uL 3.60-5.00 [facility] RBC morphologyOrdered By: Jenny oMerchant on 06-11-2022 RBC morphology finding Nom (Bld) N/A [facility] Segmented neutrophils/100 WB C Manual cnt (Bld)Ordered By: Farhad Lashonda on 06-11-2022 Segmented neutrophils/100 WBC (Bld) 32 % 50-70 [facility] WBC Auto (Bld) [#/Vol]Ordere d By: Farhad Lashonda on 06-11-2022 WBC (Bld) [#/Vol] 5.0 10*3/uL 3.8-11.6 [facility] Activated partial thrombopla stin time (aPTT) in platelet poor plasma by coagulation aOrdered By: Jean Jett on 06-10-2022 aPTT Coag (PPP) [Time] 29.8 s 25.1-36.5 [facility] Anisocytosis LM Ql (Bld)Orde red By: Jean Jett on 06-10-2022 Anisocytosis Ql (Bld) Marked [facility] Basophils Auto (Bld) [#/Vol] Ordered By: Jean Jett on 06-10-2022 Basophils (Bld) [#/Vol] 0.1 10*3/uL 0.0-0.2 [facility] Basophils/100 WBC Auto (Bld) Ordered By: Jean Jett on 06-10-2022 Basophils/100 WBC (Bld) 1.8 % . [facility] Bilirubin Test strip Ql (U)O rdered By: Jean Jett on 06-10-2022 Bilirubin Ql (U) Negative Negative [facility] CT biopsyOrdered By: Jean Jett on 06-10-2022 Transferrin [Mass/Vol] 380 mg/dL 180-380 [facility] Calcium [Mass/volume] in Ser um or PlasmaOrdered By: Jean Jett on 06-10-2022 Calcium [Mass/Vol] 8.6 mg/dL 8.2-10.2 [facility] Carbon dioxide, total [Moles /volume] in Serum or PlasmaOrdered By: Jean Jett on 06-10-2022 CO2 [Moles/Vol] 23.3 mmol/L 22.0-30.0 [facility] Chloride [Moles/volume] in S betty or PlasmaOrdered By: Jean Jett on 06-10-2022 Chloride [Moles/Vol] 106 mmol/L 95-114 [facility] Color Auto (U)Ordered By: Luis Fernando Jett on 06-10-2022 Color (U) Yellow Yellow [facility] Creatine kinase [Enzymatic a ctivity/volume] in Serum or PlasmaOrdered By: Jean Jett on 06-10-2022 CK [Catalytic activity/Vol] 100 U/L [facility] Creatinine and Glomerular fi ltration rate.predicted panel (S/P/Bld)Ordered By: Jean Jett on 06-10-2022 Creatinine [Mass/Vol] 0.71 mg/dL 0.44-1.03 [facility] Eosinophils Auto (Bld) [#/Vo l]Ordered By: Jean Jett on 06-10-2022 Eosinophils (Bld) [#/Vol] 0.3 10*3/uL 0.0-0.45 [facility] Eosinophils/100 WBC Auto (Bl d)Ordered By: Jean Jett on 06-10-2022 Eosinophils/100 WBC (Bld) 5.0 % . [facility] Erythrocyte distribution wid th Auto (RBC) [Ratio]Ordered By: Jean Jett on 06-10-2022 Erythrocyte distribution width (RBC) [Ratio] 24.6 % 11.9-15.3 [facility] Estimated glomerular filtrat ion rate (GFR) non- AmericanOrdered By: Jean Jett on 06-10-2022 GFR/1.73 sq M.predicted among non-blacks MDRD (S/P/Bld) [Vol rate/Area] > 60 mL/Min [facility] Fecal occult blood detection by immunochemistryOrdered By: Jean Jett on 06-10-2022 Hemoglobin.gastrointes tinal Ql (Stl) [facility] Glucose [Mass/volume] in Ser um or PlasmaOrdered By: Jean Jett on 06-10-2022 Glucose [Mass/Vol] 94 mg/dL 70-100 [facility] Comment on above: ADA recommended refe rence rangeRandom Glucose Reference Range is dependent on time and content of last meal. Glucose of more than 200 mg/dL in a nonstressed, ambulatory subject supports the diagnosis of Diabetes Mellitus. HCG ( test) IA.rapi d Ql (U)Ordered By: Jean Jett on 06-10-2022 HCG ( test) Ql (U) Negative [facility] Hematocrit Auto (Bld) [Volum e fraction]Ordered By: Jean Jett on 06-10-2022 Hematocrit (Bld) [Volume fraction] 23.8 % 34.0-46.4 [facility] Hemoglobin [Mass/volume] in BloodOrdered By: Jean Jett on 06-10-2022 Hemoglobin (Bld) [Mass/Vol] 7.3 g/dL 11.8-15.4 [facility] Hypochromia LM Ql (Bld)Order ed By: Jean Jett on 06-10-2022 Hypochromia Ql (Bld) Marked [facility] Iron [Mass/volume] in Serum or PlasmaOrdered By: Jean Jett on 06-10-2022 Iron [Mass/Vol] 25 ug/dL 40-150 [facility] Iron binding capacity [Mass/ volume] in Serum or PlasmaOrdered By: Jean Jett on 06-10-2022 Iron binding capacity [Mass/Vol] 532 ug/dL 255-450 [facility] Iron saturation [Mass Fracti on] in Serum or PlasmaOrdered By: Jean Jett on 06-10-2022 Iron saturation [Mass fraction] 4.7 % 20-50 [facility] Ketones Auto test strip (U) [Mass/Vol]Ordered By: Jean Jett on 06-10-2022 Ketones (U) [Mass/Vol] Negative Negative [facility] Laboratory - Chemistry and C hemistry - challengeOrdered By: Jean Jett on 06-10-2022 Magnesium [Mass/Vol] 1.9 mg/dL 1.6-2.6 [facility] Natriuretic peptide B (Bld) [Mass/Vol] 23.0 pg/mL 5-100 [facility] Laboratory - CoagulationOrde red By: Jean Jett on 06-10-2022 PT Coag (PPP) [Time] 12.9 s 9.0-12.9 [facility] Leukocytes [#/volume] correc terry for nucleated erythrocytes in Blood by Automated counOrdered By: Jean Jett on 06-10-2022 WBC corrected for nucl RBC Auto (Bld) [#/Vol] 5.3 10*3/uL 3.8-11.6 [facility] Lymphocytes Auto (Bld) [#/Vo l]Ordered By: Jean Jett on 06-10-2022 Lymphocytes (Bld) [#/Vol] 2.2 10*3/uL 1.00-4.8 [facility] Lymphocytes/100 WBC Auto (Bl d)Ordered By: Jean Jett on 06-10-2022 Lymphocytes/100 WBC (Bld) 41.3 % . [facility] MCH Auto (RBC) [Entitic mass ]Ordered By: Jean Jett on 06-10-2022 MCH (RBC) [Entitic mass] 19.7 pg 24.7-34.3 [facility] MCHC Auto (RBC) [Mass/Vol]Or dered By: Jean Jett on 06-10-2022 MCHC (RBC) [Mass/Vol] 30.6 g/dL 32.0-35.0 [facility] MCV Auto (RBC) [Entitic vol] Ordered By: Jean Jett on 06-10-2022 MCV (RBC) [Entitic vol] 64.5 fL 80-100 [facility] Microcytes LM Ql (Bld)Ordere d By: Jean Jett on 06-10-2022 Microcytes Ql (Bld) Marked [facility] Monocyte distribution width [Entitic volume] in Blood by AutomatedOrdered By: Jean Jett on 06-10-2022 Monocyte distribution width Auto (Bld) [Entitic vol] 17.54 % 0.00-20.00 [facility] Monocytes Auto (Bld) [#/Vol] Ordered By: Jean Jett on 06-10-2022 Monocytes (Bld) [#/Vol] 0.4 10*3/uL 0.0-0.8 [facility] Monocytes/100 WBC Auto (Bld) Ordered By: Jean Jett on 06-10-2022 Monocytes/100 WBC (Bld) 6.8 % . [facility] Neutrophils Auto (Bld) [#/Vo l]Ordered By: Jean Jett on 06-10-2022 Neutrophils (Bld) [#/Vol] 2.4 10*3/uL 1.8-7.7 [facility] Neutrophils/100 WBC Auto (Bl d)Ordered By: Jean Jett on 06-10-2022 Neutrophils/100 WBC (Bld) 45.1 % . [facility] Nitrite Test strip Ql (U)Ord ered By: Jean Jett on 06-10-2022 Nitrite Ql (U) Negative Negative [facility] No Panel InformationOrdered By: Jean Jett on 06-10-2022 Estimated GFR () > 60 mL/Min [facility] Comment on above: GFR estimated refere nce range: According to KDOQI guidelines, <60 ml/min/1.73m2 is sufficient to diagnose a patient with chronic kidney disease. Pharmacy Creatinine Clearance (Chem 149.49 [facility] Nucleated erythrocytes [Pres ence] in Blood by Automated countOrdered By: Jean Jett on 06-10-2022 Nucleated RBC Auto Ql (Bld) 0.1 /100{WBC} 0-0.5 [facility] Ovalocyte detectionOrdered B y: Jean Jett on 06-10-2022 Ovalocytes LM Ql (Bld) Slight [facility] Platelet adequacy [Presence] in Blood by Light microscopyOrdered By: Jean Jett on 06-10-2022 Platelets LM Ql (Bld) Normal Normal Fir [facility] Platelet mean volume Auto (B ld) [Entitic vol]Ordered By: Jean Jett on 06-10-2022 Platelet mean volume (Bld) [Entitic vol] 8.3 fL 6.3-10.7 [facility] Platelet morphology finding [Identifier] in BloodOrdered By: Jean Jett on 06-10-2022 Platelet morphology finding Nom (Bld) Normal Normal [facility] Platelet poor plasma interna tional normalized ratio (INR) by coagulation assay (relatOrdered By: Jean Jett on 06-10-2022 INR Coag (PPP) [Relative time] 1.1 {INR} [facility] Comment on above: INR Therapeutic Rang e [...] 06-10-2022 Platelets (Bld) [#/Vol] 202 10*3/uL 150-450 [facility] Poikilocytosis [Presence] in Blood by Light microscopyOrdered By: Jean Jett on 06-10-2022 Poikilocytosis LM Ql (Bld) [facility] Polychromasia [Presence] in Blood by Light microscopyOrdered By: Jean Jett on 06-10-2022 Polychromasia LM Ql (Bld) [facility] Potassium [Moles/volume] in Serum or PlasmaOrdered By: Jean Jett on 06-10-2022 Potassium [Moles/Vol] 4.1 mmol/L 3.5-5.1 [facility] Protein Auto test strip (U) [Mass/Vol]Ordered By: Jean Jett on 06-10-2022 Protein (U) [Mass/Vol] Negative Negative [facility] RBC Auto (Bld) [#/Vol]Ordere d By: Jean Jett on 06-10-2022 RBC (Bld) [#/Vol] 3.69 10*6/uL 3.60-5.00 [facility] RBC morphologyOrdered By: Luis Fernando Jett on 06-10-2022 RBC morphology finding Nom (Bld) N/A [facility] Serum or plasma anion gap de terminationOrdered By: Jean Jett on 06-10-2022 Anion gap [Moles/Vol] 10.8 mmol/L 6.0-15.0 [facility] Sodium [Moles/volume] in Ser um or PlasmaOrdered By: Jean Jett on 06-10-2022 Sodium [Moles/Vol] 136 mmol/L 136-146 [facility] Specific gravity Auto test s trip (U) [Rel density]Ordered By: Jean Jett on 06-10-2022 Specific gravity (U) [Rel density] 1.010 1.001-1.030 [facility] Target cellsOrdered By: Mackenzie Jett on 06-10-2022 Target cells LM Ql (Bld) [facility] Teardrop cell detectionOrder ed By: Jean Jett on 06-10-2022 Dacrocytes LM Ql (Bld) Slight Fi [facility] Troponin I.cardiac [Mass/vol ume] in Serum or Plasma by High sensitivity methodOrdered By: Jean Jett on 06-10-2022 Troponin I.cardiac High sensitivity method [Mass/Vol] < 3 pg/mL 0-15 [facility] Urea nitrogen [Mass/volume] in Serum or PlasmaOrdered By: Jean Jett on 06-10-2022 Urea nitrogen [Mass/Vol] 9 mg/dL 01-08 [facility] Urine clarity by refractomet ry automatedOrdered By: Jean Jett on 06-10-2022 Clarity Refractometry automated (U) Clear Clear [facility] Urine glucose measurement by automated test strip (mass/volume)Ordered By: Jean Jett on 06-10-2022 Glucose Auto test strip (U) [Mass/Vol] Normal mg/dL Normal [facility] Urine hemoglobin detection b y automated test stripOrdered By: Jean Jett on 06-10-2022 Hemoglobin Auto test strip Ql (U) Negative Negative [facility] Urine leukocyte esterase det ection by automated test stripOrdered By: Jean Jett on 06-10-2022 Leukocyte esterase Auto test strip Ql (U) Negative Negative [facility] Urobilinogen Auto test strip (U) [Mass/Vol]Ordered By: Jean Jett on 06-10-2022 Urobilinogen (U) [Mass/Vol] Normal mg/dL Normal [facility] WBC Auto (Bld) [#/Vol]Ordere d By: Jean Jett on 06-10-2022 WBC (Bld) [#/Vol] 5.3 10*3/uL 3.8-11.6 [facility] pH Auto test strip (U)Ordere d By: Jean Jett on 06-10-2022 pH (U) 5.5 [pH] 5.0-9.0 [facility] Alkaline phosphatase [Enzyma tic activity/volume] in Serum or PlasmaOrdered By: Julieta Jefferson on 06-09-2022 ALP [Catalytic activity/Vol] 39 U/L 32-92 [facility] Anisocytosis LM Ql (Bld)Orde red By: Julieta Jefferson on 06-09-2022 Anisocytosis Ql (Bld) Marked [facility] Aspartate aminotransferase [ Enzymatic activity/volume] in Serum or PlasmaOrdered By: Julieta Jefferson on 06-09-2022 AST [Catalytic activity/Vol] 15 U/L 10-42 [facility] Basophils Auto (Bld) [#/Vol] Ordered By: Julieta Jefferson on 06-09-2022 Basophils (Bld) [#/Vol] 0.1 10*3/uL 0.0-0.2 [facility] Basophils/100 WBC Auto (Bld) Ordered By: Julieta Jefferson on 06-09-2022 Basophils/100 WBC (Bld) 1.4 % . [facility] Body fluid albumin measureme nt (mass/volume)Ordered By: Julieta Jefferson on 06-09-2022 Albumin (Body fld) [Mass/Vol] 4.1 g/dL 3.2-5.5 [facility] Calcium [Mass/volume] in Ser um or PlasmaOrdered By: Julieta Jefferson on 06-09-2022 Calcium [Mass/Vol] 9.0 mg/dL 8.2-10.2 [facility] Carbon dioxide, total [Moles /volume] in Serum or PlasmaOrdered By: Julieta Jefferson on 06-09-2022 CO2 [Moles/Vol] 23.3 mmol/L 22.0-30.0 [facility] Cholesterol [Mass/volume] in Serum or PlasmaOrdered By: Julieta Jefferson on 06-09-2022 Cholesterol [Mass/Vol] 137 mg/dL 140-200 [facility] Comment on above: Chol less than 200 m g/dl low riskChol 201-239 mg/dl borderline riskChol 240 mg/dl and greater high risk Cholesterol in LDL Calc [Mas s/Vol]Ordered By: Julieta Jefferson on 06-09-2022 Cholesterol in LDL [Mass/Vol] 72 mg/dL 0-100 [facility] Comment on above: LDL ATP III CLASSIFI CATIONLDL less than 100 mg/dL OptimalLDL 100-129 mg/dL Near or above optimalLDL 130-159 mg/dL Borderline highLDL 160-189 mg/dL HighLDL greater than 189 mg/dL Very high Cholesterol in VLDL Calc [Ma ss/Vol]Ordered By: Julieta Jefferson on 06-09-2022 Cholesterol in VLDL [Mass/Vol] 9 mg/dL [facility] Creatinine and Glomerular fi ltration rate.predicted panel (S/P/Bld)Ordered By: Julieta Jefferson on 06-09-2022 Creatinine [Mass/Vol] 0.59 mg/dL 0.44-1.03 [facility] Eosinophils Auto (Bld) [#/Vo l]Ordered By: Julieta Jefferson on 06-09-2022 Eosinophils (Bld) [#/Vol] 0.3 10*3/uL 0.0-0.45 [facility] Eosinophils/100 WBC Auto (Bl d)Ordered By: Julieta Jefferson on 06-09-2022 Eosinophils/100 WBC (Bld) 6.8 % . [facility] Erythrocyte distribution wid th Auto (RBC) [Ratio]Ordered By: Julieta Jefferson on 06-09-2022 Erythrocyte distribution width (RBC) [Ratio] 24.5 % 11.9-15.3 [facility] Estimated glomerular filtrat ion rate (GFR) non- AmericanOrdered By: Julieta Jefferson on 06-09-2022 GFR/1.73 sq M.predicted among non-blacks MDRD (S/P/Bld) [Vol rate/Area] > 60 mL/Min [facility] Globulin Calc (S) [Mass/Vol] Ordered By: Julieta Jefferson on 06-09-2022 Globulin (S) [Mass/Vol] 2.3 g/dL [facility] Glucose mean value [Mass/vol ume] in Blood Estimated from glycated hemoglobinOrdered By: Julieta Jefferson on 06-09-2022 Average glucose Estimated from glycated hemoglobin (Bld) [Mass/Vol] 97 mg/dL [facility] Hematocrit Auto (Bld) [Volum e fraction]Ordered By: Julieta Jefferson on 06-09-2022 Hematocrit (Bld) [Volume fraction] 26.0 % 34.0-46.4 [facility] Hemoglobin A1c percentageOrd ered By: Julieta Jefferson on 06-09-2022 HbA1c (Bld) [Mass fraction] 5.0 % 4.3-5.6 [facility] Comment on above: Increased risk for d iabetes: 5.7 - 6.4diabetes: >6.4glycemic control for adults with diabetes: <7.0 Hemoglobin [Mass/volume] in BloodOrdered By: Julieta Jefferson on 06-09-2022 Hemoglobin (Bld) [Mass/Vol] 7.8 g/dL 11.8-15.4 [facility] Hypochromia LM Ql (Bld)Order ed By: Julieta Jefferson on 06-09-2022 Hypochromia Ql (Bld) Moderate [facility] Leukocytes [#/volume] correc terry for nucleated erythrocytes in Blood by Automated counOrdered By: Julieta Jefferson on 06-09-2022 WBC corrected for nucl RBC Auto (Bld) [#/Vol] 4.6 10*3/uL 3.8-11.6 [facility] Lymphocytes Auto (Bld) [#/Vo l]Ordered By: Julieta Jefferson on 06-09-2022 Lymphocytes (Bld) [#/Vol] 2.0 10*3/uL 1.00-4.8 [facility] Lymphocytes/100 WBC Auto (Bl d)Ordered By: Julieta Jefferson on 06-09-2022 Lymphocytes/100 WBC (Bld) 44.2 % . [facility] MCH Auto (RBC) [Entitic mass ]Ordered By: Julieta Jefferson on 06-09-2022 MCH (RBC) [Entitic mass] 19.7 pg 24.7-34.3 [facility] MCHC Auto (RBC) [Mass/Vol]Or dered By: Julieta Jefferson on 06-09-2022 MCHC (RBC) [Mass/Vol] 30.2 g/dL 32.0-35.0 [facility] MCV Auto (RBC) [Entitic vol] Ordered By: Julieta Jefferson on 06-09-2022 MCV (RBC) [Entitic vol] 65.3 fL 80-100 [facility] Microcytes LM Ql (Bld)Ordere d By: Julieta Jefferson on 06-09-2022 Microcytes Ql (Bld) Marked [facility] Monocytes Auto (Bld) [#/Vol] Ordered By: Julieta Jefferson on 06-09-2022 Monocytes (Bld) [#/Vol] 0.4 10*3/uL 0.0-0.8 [facility] Monocytes/100 WBC Auto (Bld) Ordered By: Julieta Jefferson on 06-09-2022 Monocytes/100 WBC (Bld) 8.9 % . [facility] Neutrophils Auto (Bld) [#/Vo l]Ordered By: Julieat Jefferson on 06-09-2022 Neutrophils (Bld) [#/Vol] 1.8 10*3/uL 1.8-7.7 [facility] Neutrophils/100 WBC Auto (Bl d)Ordered By: Julieta Jefferson on 06-09-2022 Neutrophils/100 WBC (Bld) 38.7 % . [facility] No Panel InformationOrdered By: Julieta Jefferson on 06-09-2022 Estimated GFR () > 60 mL/Min [facility] Comment on above: GFR estimated refere nce range: According to KDOQI guidelines, <60 ml/min/1.73m2 is sufficient to diagnose a patient with chronic kidney disease. Pharmacy Creatinine Clearance (Chem N/A [facility] Nucleated erythrocytes [Pres ence] in Blood by Automated countOrdered By: Julieta Jefferson on 06-09-2022 Nucleated RBC Auto Ql (Bld) 0.1 /100{WBC} 0-0.5 [facility] Platelet adequacy [Presence] in Blood by Light microscopyOrdered By: Julieta Jefferson on 06-09-2022 Platelets LM Ql (Bld) Normal Normal [facility]ir [facility] Platelet mean volume Auto (B ld) [Entitic vol]Ordered By: Julieta Jefferson on 06-09-2022 Platelet mean volume (Bld) [Entitic vol] 8.2 fL 6.3-10.7 [facility] Platelet morphology finding [Identifier] in BloodOrdered By: Julieta Jefferson on 06-09-2022 Platelet morphology finding Nom (Bld) Normal Normal [facility] Platelets Auto (Bld) [#/Vol] Ordered By: Julieta Jefferson on 06-09-2022 Platelets (Bld) [#/Vol] 200 10*3/uL 150-450 [facility] Poikilocytosis [Presence] in Blood by Light microscopyOrdered By: Julieta Jefferson on 06-09-2022 Poikilocytosis LM Ql (Bld) Slight [facility] Polychromasia [Presence] in Blood by Light microscopyOrdered By: Julieta Jefferson on 06-09-2022 Polychromasia LM Ql (Bld) Moderate [facility] Protein [Mass/volume] in Ser um or PlasmaOrdered By: Julieta Jefferson on 06-09-2022 Protein [Mass/Vol] 6.4 g/dL 6.1-7.9 [facility] RBC Auto (Bld) [#/Vol]Ordere d By: Julieta Jefferson on 06-09-2022 RBC (Bld) [#/Vol] 3.97 10*6/uL 3.60-5.00 [facility] RBC morphologyOrdered By: Guicho Jefferson on 06-09-2022 RBC morphology finding Nom (Bld) N/A [facility] Schistocytes [Presence] in B lood by Light microscopyOrdered By: Julieta Jefferson on 06-09-2022 Schistocytes LM Ql (Bld) Slight [facility] Serum or plasma alanine paredes otransferase measurement without P-5'-P (enzymatic activiOrdered By: Julieta Jefferson on 06-09-2022 ALT No additional P-5'-P [Catalytic activity/Vol] 14 U/L 10-60 [facility] Serum or plasma albumin/glob ulin mass ratioOrdered By: Julieta Jefferson on 06-09-2022 Albumin/Globulin [Mass ratio] 1.8 {ratio} [facility] Serum or plasma anion gap de terminationOrdered By: Julieta Jefferson on 06-09-2022 Anion gap [Moles/Vol] 11.5 mmol/L 6.0-15.0 [facility] Serum or plasma calcitriol m easurement (mass/volume)Ordered By: Julieta Jefferson on 06-09-2022 1,25-dihydroxyvitamin D3 [Mass/Vol] 60.5 pg/mL 24.8-81.5 [facility] Comment on above: Performed at: [address] [id number] Director: Jon Horton MD, Phone: [phone] Serum or plasma chloride robel surement (moles/volume)Ordered By: Julieta Jefferson on 06-09-2022 Chloride [Moles/Vol] 106 mmol/L 95-114 [facility] Serum or plasma glucose kelly urement (mass/volume)Ordered By: Julieta Jefferson on 06-09-2022 Glucose [Mass/Vol] 78 mg/dL 70-100 [facility] Comment on above: ADA recommended refe rence rangeRandom Glucose Reference Range is dependent on time and content of last meal. Glucose of more than 200 mg/dL in a nonstressed, ambulatory subject supports the diagnosis of Diabetes Mellitus. Serum or plasma high density lipoprotein (HDL) cholesterol measurementOrdered By: Julieta Jefferson on 06-09-2022 Cholesterol in HDL [Mass/Vol] 56 mg/dL 35-85 [facility] Comment on above: HDL CHOL ATP-III CLA SSIFICATION Cardiovascular RiskHDL > or equal to 60 mg/dL LOWHDL < 40 mg/dL HIGH Serum or plasma potassium me asurement (moles/volume)Ordered By: Julieta Jefferson on 06-09-2022 Potassium [Moles/Vol] 3.8 mmol/L 3.5-5.1 [facility] Serum or plasma sodium measu rement (moles/volume)Ordered By: Julieta Jefferson on 06-09-2022 Sodium [Moles/Vol] 137 mmol/L 136-146 [facility] Serum or plasma total biliru bin measurement (mass/volume)Ordered By: Julieta Jefferson on 06-09-2022 Bilirubin [Mass/Vol] 0.3 mg/dL 0.3-1.2 [facility] Serum or plasma total choles terol/high density lipoprotein (HDL) cholesterol mass ratOrdered By: Julieta Jefferson on 06-09-2022 Cholesterol.total/Chol esterol in HDL [Mass ratio] 2.4 {ratio} <5.0 [facility] TSH DL <= 0.005 mIU/L QnOrde red By: Julieta Jefferson on 06-09-2022 TSH Qn 4.10 m[IU]/L 0.45-5.33 [facility] Teardrop cell detectionOrder ed By: Julieta Jefferson on 06-09-2022 Dacrocytes LM Ql (Bld) Slight [facility] Triglyceride [Mass/volume] i n Serum or PlasmaOrdered By: Julieta Jefferson on 06-09-2022 Triglyceride [Mass/Vol] 45 mg/dL 35-149 [facility] Comment on above: TRIG ATP III CLASSIF ICATIONTRIG less than 150 mg/dL NormalTRIG 150-199 mg/dL Borderline highTRIG 200-500 mg/dL High TRIG greater than 500 mg/dL Very highStandard traceable to the Center for Disease Conrtrol and Prevention (CDC) test method. Urea nitrogen [Mass/volume] in Serum or PlasmaOrdered By: Julieta Jefferson on 06-09-2022 Urea nitrogen [Mass/Vol] 6 mg/dL 01-08 [facility] WBC Auto (Bld) [#/Vol]Ordere d By: Julieta Jefferson on 06-09-2022 WBC (Bld) [#/Vol] 4.6 10*3/uL 3.8-11.6 [facility] Urine 10 SGon 04-21-2022 Albumin DL <= 20 mg/L (U) [Mass/Vol] Negative [facility] Other pH (U) 7.0 [pH] [facility] Other Urine 10 SG Negative [facility] Other Urine 10 SG 1.020 [facility] Other Urine 10 SG large [facility] Other Urine Cultureon 04-21-2022 Bacteria identified Cx Nom (U) [facility] Other Urine culture routineOrdered By: Amanda Ford on 04-21-2022 Bacteria identified Cx Nom (U) 2 Days [facility] Activated partial thrombopla stin time (aPTT) in platelet poor plasma by coagulation aOrdered By: Phu Hdz on 04-10-2022 aPTT Coag (PPP) [Time] 30.4 s 25.1-36.5 [facility] Automated erythrocytes count in urine sediment (number/area)Ordered By: Jean Jett on 04-10-2022 RBC Auto (Urine sed) [#/Area] Innumerable [HPF] 0-4 [facility] Automated leukocytes count i n urine sediment (number/area)Ordered By: Jean Jett on 12-24-2022 WBC Auto (Urine sed) [#/Area] 3-4 [HPF] 0-4 [facility] Automated urine sediment mukesh cium oxalate crystal count by microscopy (number/high powOrdered By: Jean Jett on 04-10-2022 Calcium oxalate crystals LM.HPF (Urine sed) [#/Area] 1+ [HPF] [facility] Basophils Auto (Bld) [#/Vol] Ordered By: Jean Jett on 04-10-2022 Basophils (Bld) [#/Vol] 0.0 10*3/uL 0.0-0.2 [facility] Basophils/100 WBC Auto (Bld) Ordered By: Jean Jett on 04-10-2022 Basophils/100 WBC (Bld) 0.5 % . [facility] Bilirubin Test strip Ql (U)O rdered By: Jean Jett on 04-10-2022 Bilirubin Ql (U) 1+ Negative [facility] Casts typing in urine sedime nt by light microscopyOrdered By: Jean Jett on 04-10-2022 Casts LM Nom (Urine sed) None seen [LPF] None Seen [facility] Color Auto (U)Ordered By: Luis Fernando Jett on 04-10-2022 Color (U) Red Yellow [facility] Creatinine and Glomerular fi ltration rate.predicted panel (S/P/Bld)Ordered By: Jean Jett on 04-10-2022 Creatinine [Mass/Vol] 0.68 mg/dL 0.44-1.03 [facility] Eosinophils Auto (Bld) [#/Vo l]Ordered By: Jean Jett on 04-10-2022 Eosinophils (Bld) [#/Vol] 0.2 10*3/uL 0.0-0.45 [facility] Eosinophils/100 WBC Auto (Bl d)Ordered By: Jean Jett on 04-10-2022 Eosinophils/100 WBC (Bld) 2.1 % . [facility] Erythrocyte distribution wid th Auto (RBC) [Ratio]Ordered By: Jean Jett on 04-10-2022 Erythrocyte distribution width (RBC) [Ratio] 14.3 % 11.9-15.3 [facility] Estimated glomerular filtrat ion rate (GFR) non- AmericanOrdered By: Jean Jett on 04-10-2022 GFR/1.73 sq M.predicted among non-blacks MDRD (S/P/Bld) [Vol rate/Area] > 60 mL/Min [facility] HCG ( test) IA.rapi d Ql (U)Ordered By: Jean Jett on 04-10-2022 HCG ( test) Ql (U) Negative [facility] Hematocrit Auto (Bld) [Volum e fraction]Ordered By: Jean Jett on 04-10-2022 Hematocrit (Bld) [Volume fraction] 29.4 % 34.0-46.4 [facility] Hemoglobin [Mass/volume] in BloodOrdered By: Jean Jett on 04-10-2022 Hemoglobin (Bld) [Mass/Vol] 9.9 g/dL 11.8-15.4 [facility] Ketones Auto test strip (U) [Mass/Vol]Ordered By: Jean Jett on 04-10-2022 Ketones (U) [Mass/Vol] Negative Negative Fi [facility] - CoagulationOrde red By: Phu Hdz on 04-10-2022 PT Coag (PPP) [Time] 12.4 s 9.0-12.9 [facility] - UrinalysisOrder ed By: Jean Jett on 04-10-2022 Hyaline casts LM Ql (Urine sed) None seen [LPF] 0-8 [facility] Leukocytes [#/volume] correc terry for nucleated erythrocytes in Blood by Automated counOrdered By: Jean Jett on 04-10-2022 WBC corrected for nucl RBC Auto (Bld) [#/Vol] 8.5 10*3/uL 3.8-11.6 [facility] Lymphocytes Auto (Bld) [#/Vo l]Ordered By: Jean Jett on 04-10-2022 Lymphocytes (Bld) [#/Vol] 2.1 10*3/uL 1.00-4.8 [facility] Lymphocytes/100 WBC Auto (Bl d)Ordered By: Jean Jett on 04-10-2022 Lymphocytes/100 WBC (Bld) 25.2 % . [facility] MCH Auto (RBC) [Entitic mass ]Ordered By: Jean Jett on 04-10-2022 MCH (RBC) [Entitic mass] 28.8 pg 24.7-34.3 [facility] MCHC Auto (RBC) [Mass/Vol]Or dered By: Jean Jett on 04-10-2022 MCHC (RBC) [Mass/Vol] 33.6 g/dL 32.0-35.0 [facility] MCV Auto (RBC) [Entitic vol] Ordered By: Jean Jett on 04-10-2022 MCV (RBC) [Entitic vol] 85.7 fL 80-100 [facility] Monocyte distribution width [Entitic volume] in Blood by AutomatedOrdered By: Jean Jett on 04-10-2022 Monocyte distribution width Auto (Bld) [Entitic vol] 14.20 % 0.00-20.00 [facility] Monocytes Auto (Bld) [#/Vol] Ordered By: Jean Jett on 04-10-2022 Monocytes (Bld) [#/Vol] 0.5 10*3/uL 0.0-0.8 [facility] Monocytes/100 WBC Auto (Bld) Ordered By: Jean Jett on 04-10-2022 Monocytes/100 WBC (Bld) 5.7 % . [facility] Neutrophils Auto (Bld) [#/Vo l]Ordered By: Jean Jett on 04-10-2022 Neutrophils (Bld) [#/Vol] 5.6 10*3/uL 1.8-7.7 [facility] Neutrophils/100 WBC Auto (Bl d)Ordered By: Jean Jett on 04-10-2022 Neutrophils/100 WBC (Bld) 66.5 % . [facility] Nitrite Test strip Ql (U)Ord ered By: Jean Jett on 04-10-2022 Nitrite Ql (U) Positive Negative [facility] No Panel InformationOrdered By: Jean Jett on 04-10-2022 Estimated GFR () > 60 mL/Min [facility] Comment on above: GFR estimated refere nce range: According to KDOQI guidelines, <60 ml/min/1.73m2 is sufficient to diagnose a patient with chronic kidney disease. Pharmacy Creatinine Clearance (Chem 152.39 [facility] Nucleated erythrocytes [Pres ence] in Blood by Automated countOrdered By: Jean Jett on 04-10-2022 Nucleated RBC Auto Ql (Bld) 0.0 /100{WBC} 0-0.5 [facility] Platelet mean volume Auto (B ld) [Entitic vol]Ordered By: Jean Jett on 04-10-2022 Platelet mean volume (Bld) [Entitic vol] 6.9 fL 6.3-10.7 [facility] Platelet poor plasma interna tional normalized ratio (INR) by coagulation assay (relatOrdered By: Phu Hdz on 04-10-2022 INR Coag (PPP) [Relative time] 1.1 {INR} [facility] Comment on above: INR Therapeutic Rang e [...] 04-10-2022 Platelets (Bld) [#/Vol] 263 10*3/uL 150-450 [facility] Protein Auto test strip (U) [Mass/Vol]Ordered By: Jean Jett on 04-10-2022 Protein (U) [Mass/Vol] 100 mg/dL Negative [facility] RBC Auto (Bld) [#/Vol]Ordere d By: Jean Jett on 04-10-2022 RBC (Bld) [#/Vol] 3.43 10*6/uL 3.60-5.00 [facility] Serum or plasma anion gap de terminationOrdered By: Jean Jett on 04-10-2022 Anion gap [Moles/Vol] 8.5 mmol/L 6.0-15.0 [facility] Serum or plasma calcium kelly urement (mass/volume)Ordered By: Jean Jett on 04-10-2022 Calcium [Mass/Vol] 8.6 mg/dL 8.2-10.2 [facility] Serum or plasma chloride robel surement (moles/volume)Ordered By: Jean Jett on 04-10-2022 Chloride [Moles/Vol] 106 mmol/L 95-114 [facility] Serum or plasma glucose kelly urement (mass/volume)Ordered By: Jean Jett on 04-10-2022 Glucose [Mass/Vol] 99 mg/dL 70-100 [facility] Comment on above: ADA recommended refe rence rangeRandom Glucose Reference Range is dependent on time and content of last meal. Glucose of more than 200 mg/dL in a nonstressed, ambulatory subject supports the diagnosis of Diabetes Mellitus. Serum or plasma potassium me asurement (moles/volume)Ordered By: Jean Jett on 04-10-2022 Potassium [Moles/Vol] 3.6 mmol/L 3.5-5.1 [facility] Serum or plasma sodium measu rement (moles/volume)Ordered By: Jean Jett on 04-10-2022 Sodium [Moles/Vol] 138 mmol/L 136-146 [facility] Serum or plasma total carbon dioxide measurement (moles/volume)Ordered By: Jean Jett on 04-10-2022 CO2 [Moles/Vol] 27.1 mmol/L 22.0-30.0 [facility] Serum or plasma urea nitroge n measurement (mass/volume)Ordered By: Jean Jett on 04-10-2022 Urea nitrogen [Mass/Vol] 5 mg/dL 9-23 [facility] Specific gravity Auto test s trip (U) [Rel density]Ordered By: Jean Jett on 04-10-2022 Specific gravity (U) [Rel density] 1.033 1.001-1.030 [facility] Squamous epithelial cells de tection in urine sediment by light microscopyOrdered By: Jean Jett on 04-10-2022 Epithelial cells.squamous LM Ql (Urine sed) 3-4 [HPF] 0-2 [facility] Urine bacteria detection by automated methodOrdered By: Jean Jett on 04-10-2022 Bacteria Auto Ql (U) None seen None Seen [facility] Urine clarity by refractomet ry automatedOrdered By: Jean Jett on 04-10-2022 Clarity Refractometry automated (U) Turbid Clear [facility] Urine culture routineOrdered By: Jean Jett on 04-10-2022 Bacteria identified Cx Nom (U) 2 Days [facility] Urine glucose measurement by automated test strip (mass/volume)Ordered By: Jean Jett on 04-10-2022 Glucose Auto test strip (U) [Mass/Vol] Normal mg/dL Normal [facility] Urine hemoglobin detection b y automated test stripOrdered By: Jean Jett on 04-10-2022 Hemoglobin Auto test strip Ql (U) 3+ Negative [facility] Urine leukocyte esterase det ection by automated test stripOrdered By: Jean Jett on 04-10-2022 Leukocyte esterase Auto test strip Ql (U) 2+ Negative [facility] Urine sediment crystal ident ification by light microscopyOrdered By: Jean Jett on 04-10-2022 Crystals LM Nom (Urine sed) None seen [HPF] [facility] Urobilinogen Auto test strip (U) [Mass/Vol]Ordered By: Jean Jett on 04-10-2022 Urobilinogen (U) [Mass/Vol] Normal mg/dL Normal [facility] WBC Auto (Bld) [#/Vol]Ordere d By: Jean Jett on 04-10-2022 WBC (Bld) [#/Vol] 8.5 10*3/uL 3.8-11.6 [facility] pH Auto test strip (U)Ordere d By: Jean Jett on 04-10-2022 pH (U) 5.5 [pH] 5.0-9.0 [facility] Basophils Auto (Bld) [#/Vol] Ordered By: PROVIDER TEMP on 04-08-2022 Basophils (Bld) [#/Vol] 0.0 10*3/uL 0.0-0.2 [facility] Basophils/100 WBC Auto (Bld) Ordered By: PROVIDER TEMP on 04-08-2022 Basophils/100 WBC (Bld) 0.4 % . [facility] Eosinophils Auto (Bld) [#/Vo l]Ordered By: PROVIDER TEMP on 04-08-2022 Eosinophils (Bld) [#/Vol] 0.4 10*3/uL 0.0-0.45 [facility] Eosinophils/100 WBC Auto (Bl d)Ordered By: PROVIDER TEMP on 04-08-2022 Eosinophils/100 WBC (Bld) 5.5 % . [facility] Erythrocyte distribution wid th Auto (RBC) [Ratio]Ordered By: PROVIDER TEMP on 04-08-2022 Erythrocyte distribution width (RBC) [Ratio] 14.1 % 11.9-15.3 [facility] Hematocrit Auto (Bld) [Volum e fraction]Ordered By: PROVIDER TEMP on 04-08-2022 Hematocrit (Bld) [Volume fraction] 33.9 % 34.0-46.4 [facility] Hemoglobin [Mass/volume] in BloodOrdered By: PROVIDER TEMP on 04-08-2022 Hemoglobin (Bld) [Mass/Vol] 11.4 g/dL 11.8-15.4 [facility] Leukocytes [#/volume] correc terry for nucleated erythrocytes in Blood by Automated counOrdered By: PROVIDER TEMP on 04-08-2022 WBC corrected for nucl RBC Auto (Bld) [#/Vol] 8.1 10*3/uL 3.8-11.6 [facility] Lymphocytes Auto (Bld) [#/Vo l]Ordered By: PROVIDER TEMP on 04-08-2022 Lymphocytes (Bld) [#/Vol] 2.3 10*3/uL 1.00-4.8 [facility] Lymphocytes/100 WBC Auto (Bl d)Ordered By: PROVIDER TEMP on 04-08-2022 Lymphocytes/100 WBC (Bld) 28.1 % . [facility] MCH Auto (RBC) [Entitic mass ]Ordered By: PROVIDER TEMP on 04-08-2022 MCH (RBC) [Entitic mass] 29.0 pg 24.7-34.3 [facility] MCHC Auto (RBC) [Mass/Vol]Or dered By: PROVIDER TEMP on 04-08-2022 MCHC (RBC) [Mass/Vol] 33.7 g/dL 32.0-35.0 [facility] MCV Auto (RBC) [Entitic vol] Ordered By: PROVIDER TEMP on 04-08-2022 MCV (RBC) [Entitic vol] 86.0 fL 80-100 [facility] Monocyte distribution width [Entitic volume] in Blood by AutomatedOrdered By: PROVIDER TEMP on 04-08-2022 Monocyte distribution width Auto (Bld) [Entitic vol] 13.83 % 0.00-20.00 [facility] Monocytes Auto (Bld) [#/Vol] Ordered By: PROVIDER TEMP on 04-08-2022 Monocytes (Bld) [#/Vol] 0.5 10*3/uL 0.0-0.8 [facility] Monocytes/100 WBC Auto (Bld) Ordered By: PROVIDER TEMP on 04-08-2022 Monocytes/100 WBC (Bld) 6.7 % . [facility] Neutrophils Auto (Bld) [#/Vo l]Ordered By: PROVIDER TEMP on 04-08-2022 Neutrophils (Bld) [#/Vol] 4.8 10*3/uL 1.8-7.7 [facility] Neutrophils/100 WBC Auto (Bl d)Ordered By: PROVIDER TEMP on 04-08-2022 Neutrophils/100 WBC (Bld) 59.3 % . [facility] Nucleated erythrocytes [Pres ence] in Blood by Automated countOrdered By: PROVIDER TEMP on 04-08-2022 Nucleated RBC Auto Ql (Bld) 0.2 /100{WBC} 0-0.5 [facility] Platelet mean volume Auto (B ld) [Entitic vol]Ordered By: PROVIDER TEMP on 04-08-2022 Platelet mean volume (Bld) [Entitic vol] 7.0 fL 6.3-10.7 [facility] Platelets Auto (Bld) [#/Vol] Ordered By: PROVIDER TEMP on 04-08-2022 Platelets (Bld) [#/Vol] 199 10*3/uL 150-450 [facility] RBC Auto (Bld) [#/Vol]Ordere d By: PROVIDER TEMP on 04-08-2022 RBC (Bld) [#/Vol] 3.94 10*6/uL 3.60-5.00 [facility] WBC Auto (Bld) [#/Vol]Ordere d By: PROVIDER TEMP on 04-08-2022 WBC (Bld) [#/Vol] 8.1 10*3/uL 3.8-11.6 [facility] XR shoulder RT min 2V*on XR shoulder RT min 2V* [facility] [employer] Other XR shoulder RT min 2V* [facility] [employer] Other XR shoulder RT min 2V* [address] [facility] [employer] Other XR shoulder RT min 2V* LUKE Bazzi [id number] [facility] [employer] Other XR shoulder RT min 2V* XRay Report N [facility] [employer] Other XR shoulder RT min 2V* Signed No rt [employer] Other XR shoulder RT min 2V* Patient: Meagan Sanders MR#: [id number] [place] [employer] Other XR shoulder RT min 2V* 9782 No rt [employer] Other XR shoulder RT min 2V* : 1995 Acct:[id number] [employer] Other XR shoulder RT min 2V* Age/Sex: 27 / F A DM Date: 03/23/22 [employer] Other XR shoulder RT min 2V* Loc: [facility] Room: T e: [facility] [employer] Other XR shoulder RT min 2V* Attending Dr: Daxa Ford APRN, RUBBER TE[employer]-C [employer] Other XR shoulder RT min 2V* Copies to: Yaya Ford APRN, JARROD [employer] Other XR shoulder RT min 2V* Ordering Provider : Amanda Ford APRN, JARROD [employer] Other XR shoulder RT min 2V* Date of Service: 03/23/22 [employer] Other XR shoulder RT min 2V* XR/XR shoulder RT min 2V*: Other chronic pain;Pain in right shoulder [employer] Other XR shoulder RT min 2V* RIGHT SHOULDER - - 3 views [employer] Other XR shoulder RT min 2V* CLINICAL HISTORY: Pain lateral to right shoulder for 6 months. [employer] Other XR shoulder RT min 2V* COMPARISON: None [employer] Other XR shoulder RT min 2V* FINDINGS: No [employer] Other XR shoulder RT min 2V* Minimal degenerat misti changes of the right AC joint. Glenohumeral joint is grossly unremarkable. No [employer] Other XR shoulder RT min 2V* acute bony process. [employer] Other XR shoulder RT min 2V* 0 XR/XR shoulder RT min 2V* [employer] Other XR shoulder RT min 2V* IMPRESSION: N [employer] Other XR shoulder RT min 2V* MINIMAL DEGENERAT MISTI CHANGES. NO ACUTE BONY PROCESS. [employer] Other XR shoulder RT min 2V* Impression dictat ed by: Sravan Dickinson Jr., D.O.03/23/2022 4:06 PM [employer] Other XR shoulder RT min 2V* Dictation Locatio n: RADIO-PC-12 [employer] Other XR shoulder RT min 2V* Transcribed By: Diaz OWENS 03/23/22 1606 [employer] Other XR shoulder RT min 2V* Dictated By: Jasiel Dickinson Jr DO 03/23/22 1605 [employer] Other XR shoulder RT min 2V* S[facility]: [facility] Other XR shoulder RT min 2V* 03/23/22 1606 [facility] [employer] Other Coding Summary.on 09-03-2021 Coding Summary. [id number] Gh0 bWw+PGhlYWQ+VJ8BYCBwF79 gfRHyuR7WD0kKQD7HKGPVLS LXQH1IZA3bvIS9ZIlcU1Xok iAv IcttlZShIG97JQd2MYQ4qGu rAGyvdB2yrCSqL8p9HiLpXO 71gQ50BOwrOACcAmI5PgJyn jsgbWFy C0ejAsVdwJQnAwp+PHRhYmx lIHdpZHRoPScxMDAlJyBzdH ozUH1kBo3zJBShUNCevUpfh HNlOiBj q4avPMQaPLdpDS3wgMwzI4Z geUH5DLJcl8g0Sl49eRK+PH AzNCF7iAshKIket223HsDpb 6ruCDE4 fPOmPUyvDXT0Q88ti8G6KUU eSJYcLHL7zLF5aI4pjVxkve cjY8AiyYScInK1ASD1eKQpb K2uhTos jggskQ4jRta+Z46DCB4MNRM PJM5QXcm6B2ZsUjyquCT+PC 85QZMqLD75dVXhgLXja0vkk Yc4RsWg CTKhHCM3tAxmRAuxn3JzPHF xQ17kxQBno3D3XCJtjDwnkP VnLlHtoEY1gQ1lRVukwmzjl 2hvdzsn Rfkhr9bwsx72mE45H30fKWz eTFZcGQO6FALaDMMewNzsee 8vnY0mQw9+JAvrb0acs7jvr Bw1AeHl HPYwcyTfgVraXJR6d7SgKp7 7C1NugNwsx2OoMfo0tc24zB Bjs2I0tSP6JLznOVEytO0uD WxlZnQ6 PPVvUzTfzW29tDGcNOruKm3 jxFimzYluMC0pJFJmppuqEF JfuD0yPHEaqEPbmGzmFO3rK TBpbjtm g405QmMwYMD9NNTncVTbH1Z aaF1qXiBrSMPnCTShG7PfyW NsOUbxZ006TQgaXoG8CUFtp lSfV5Rj TZBwaZkvKzY7n9O6Tf0Cs1U kdkgkCBO5KScpHLI2WtQ9Ic KlYnZ4W7TwFdm4XMVigFtiM F0mK8Qc FVZkmtnamtwjhHP2LZQvTUI auA18dBQyAIvmDu6yb1N5r9 99QIWcJYXwsF99Oi4qxQejC TBwdCBU uO9dnjkis9rjefulIrXoVWQ sXGs9WIy0FBIjjEguFuYmAN F2YkT7PYB0dBKvdI1nvRvym gynqA0b Oyc+O62wcR9lVGZ9QIR1sxp eTIAovbXyQQ10CV16M7LcLq wvdGFibGU+PGRpdiBzdHlsZ C1wUhDd h7fju3RcHSxvM4PiADCaATe vQoe0WYZkXRN8oIP9zD1uNO XnRBwvj0P8uNA4I4ZubyWwb g5bm7ha UIVbBGtmL99xcCPcz2H5KGW ucJE0GIMzaXsyUwPcoE94Gq c+EKEknGiye7LaBzmzt8pzq 4xxzEj6 CzWlEWNvctItxLvoLFL4l0A hMl12D03fXIavKVRgHNVuFB UySMJdwQicya3nhV4gWy5+P GNvbCB3 eOG7mH4zZNDrRbV8VBaqB41 0KpQebYBtLwawl1hjq6qkuD a5HiSvPTPmyuYdtRilUGY5q 1HnGl86 K31aFKzzQUDdQOFrCZGiNHN ygKhill9svL1cGt1+PC9jb2 ncdk57zK00iDO+JVZwBMP9h WxlPSdw HSSgbR4oZJttJrL0YAAaNhR xwE26vMHaCJypIv9jmGbufL fzBU1fYYQjuztko639FwIsk 2xkIDEw sTGdMTwcANK9E62kg4Q5FXZ vHNAzAPV1gDR9bL1niRekld ogbGVmdDsgdmVydGljYWwtY JmzH174 IHRvcDsnPlBhdGllbnQgTmF iOZe0N0QzOxb5JUJwfRznLC 9wcBOrPRosQi4sqAktuGveB E6bCDLh waswl319ExFjc7xlEBVcfFA yOImuVFA3D92ww9O7CGDfJN KaTKW4mIU5sV1hdRzkwvyrw GVmdDsg bhDwlFwjGTsqKYupK695HSW ijPkrYgQplsQcTROgvUD5EH 36QF95nMYje9V5lXE1O3LrR GRpbmct wojbvZG6LEUxGGTpvU68Lm7 wnXmtUf5mXLSyDVK8QJQlnE BgD6QmmU5xQiKaWHUxGPPeA 3RleHQt FUxuD136DLznNgO7LNDdlzB lO0DqZLFqaDnxQkQ8o0N1Na 8MC3A4BR12DM55nTUhd5G0j RJ6T4Gj NDGwqeezjswbaIE0QLBlFCS fvF09Li6vyPezUd2cLCEeGP W2RHYomFMoU5FacA7xCsLuU DAwMDAw E5BznWAuEVlaB084PYnfJgH 4QRGzdiIrF4JsACUeuIosAy V8e9D9Mk1WCMr6TK68WZ32n OHai6T3 lFJ0T8NbHVKxlwwckcgfgLI 5FTNoARAenI03Jn4rkXwmJs 4yEJViZRR3ZMTgeUXbR9Hcm X1zKvGh VXKsOPBrK9AigOSvCEdcM95 5DZibBjA8YRIozkUfX3TbWK RhyObwOgC6y5G8Tt7PJSClM W80TXT0 zRA7FK66RB63K4TvUavgmME ibGU+PHRhYmxlIHdpZHRoPS frKYDsLiYwcWxyUY4gJy8rG GVyLWNv fXcynHStBiQig7ifZZIcJOj oDR4qkJztG9SirRQ2PTPva1 y2Tn61H10kY8HqmHJ+PGNvb CX0qET9 wI5pNzArVeJ5UItxJ940FfR apXTdDkmfr1yoe0dqxWi9Bi C4PPPiacQkoDhqYQC1j1OlF g21N70b IHdpZHRoPSIxNSUiIHZhbGl wnm4vlH7vHi3+OZWxnTJ2wV G1aL7fWpRcOwA3YLsnO324S nRvcCIv Xazty2gqt6urlRr3QwYaECN ijhBreZdvGCM0l6JtOr94U5 YgsHlcm0CsAqa0dr72mMYao 1H9bVV6 Z2BzTMDjnqfedSTcqQagUT7 aHVDgslnfERBpsL9nMRNfM2 l8NmJiSaJ5TYwkL2FyqnC1M DEwcHQg OEsjKPO7X14ds1G5SECpHBT tCVH8wJL1pK8tcDfdcfrbpG VmdDsgdmVydGljYWwtYWxpZ 246IHRv tIpiBSWgaW8rQKXqoPRkpWv aSS0jJXOepgzoSb8NU9FQMi wgSEVBVEhFUjwvdGQ+PHRkI MK3vMyw RKubFGZrbI6sUYCpF1i0PwK mNoG5STanZ2JmVUFchddwDv 99uZ1zHjJrZnM9SSdkM4Twn lG7UATh sUPnMHroRCY4C26jh3D4FRT tVDClJTM9dEI9rR1avOokkl ogbGVmdDsgdmVydGljYWwtY MnkF994 IKSkjZjjBrOsTaV3UbV4HPY 1F4NsSpc8GQHvdYavEF4niS SeDRoeOz1upOcetCtbIK7wQ TBpbjtw UKHugD3lOYYkdDVkyRxkDH8 cMKNbzkdhy095JwVyLNR2NS OylPVbE0UqvY8mFiGpGMInJ YOtH0Yt sQWsWUrvM857VDxlEcY6QFT tcfSjX6ZgUEAqvZorRmJ0t7 W7Ia0hVqYHUJUcywdtnCC+P HRkIHN0 aLxtPLbwOHAvtA9qTZZfO3d 5KvVgQsK4OTzjI4CzTCQuew mxFk30dX4oCtErWvC8ZCrkY 5KpgjV1 XYZlhITlJHdgZIL0D92ba8N 5NQToKSZaQDG5iSG5dS7acH lnbjogbGVmdDsgdmVydGljY WwtYWxp T748EBEryGmbSbOdyZHvVNz vdGQ+EDCuOHB0fKlpWUurPO TrqQ6iAUXnC4i8EzNtOjS1R BlcJ5Cg HVEtsclzLv29hL7xNmMrLiK 6HCqvN3RuduU2LKMesLWuWZ juJHM2R34ar1K7JHRhEZXhB YL2nQO1 fY6euNworgbawGQmhWgzhdL vwBujHRdpEWlfR704ENOejZ gzUs33fKNjuJztidI2A7WjF jwvdHI+ DQ47ZTNwNV53sNKueIJrs4e hyDa0XmVcVBGhTNR3oYbiPI ubt0VnUUHqF56erRHso8V5S GNvbGxh gQQrZlRclHA6oI7gGWkyfee uc7dgvjhpHeigc3iaor26qB 05S70yREbdZZLiURNcKCBbS HZhbGln wm7ptS7gFv8+LAYzqWU5rVG 3lJ6cZoEoCgQ5TQheX604If FstQXkAxjmv0hzj4jclUb4G jIwJSIg mjSxlWyePFN1x9HgDv11B31 sIHdpZHRoPSIyMCUiIHZhbG ymgt9tdQ4sVa1+RH8xe2jvp l25yV50 dHI+IIVlKHW7zHqwORrwRGI ylO5gORswGuY3STWaVeMczE 32bXJeUVicYp4sgYnioHfkP Q9dCONh dwlik706RnNgn6vhNPLymOF bKJneCMZ3O44qp9G8RHFcYA RxGPR7rVZ5lA5jtZeniwhhs GVmdDsg hmQgbOrgZFfmKShbW828ZLE pfOdiGsJsdMEvR6bdbrTFMD 1lOjwvdGQ+PMGgCII6bQivI SdwYWRk lU7aNUMkD4c5GcXzGrH2HPz eE7SawqR6WKNcqWOrBKXefV VYvR6gvagpf5ozxzryCwHbA DAwMDt0 XEk6CIMhxFlsBrNhZEP0VkU 0HHN7wUZepY5bmWdccbqgoN 9wOyc+RklOOjwvdGQ+PHRkI ZD0oWbb STmvIRApoT2fCGFvS7w3SfP bOjA1ZYhzH0KzquS9NJIawP RuKAMquFUPwR2awvcbd7aav jogIzAw BUSeBGp8UGk6JNOemIklXuA tYNQ4GqE0BUD9qMWyqE8elP lnsfnxgZ6kKig+TVJOOjwvd GQ+PHRk BVK1bOpfXLisBMXpdU8bZLM uX0m1OaQrBlF1ODutK7Uslx L3UTDjwPBjZGZgpPBFrL9fi bbcb8ha asuwMnJeSDMzHHu1CSz4AMB dfNfvQuNoGAU4GdA0QHK7wT ZjqM6stMbxjmbciZ2sNmm+U UB9NPY2 GN98GX03B6ZfDbuoiOJrcQE +PHRhYmxlIHdpZHRoPScxMD EmPcQaoGcpXA9wOr6qKFImU WNvbGxh cHNl (more content not included)... Normal [facility] Office/Cl inic Noteon 09-02-2021 [...] Jack eXperience to record this visit. ANAMARIA paralegal specialist and provider reviewed before signing. ANAMARIA: [...] History Bipolar: Sister. Depression: Mother and Grandparent. [facility] Comment on above: Result Comment: Elec tronically Signed By: Samir Thompson MD\.br\Date and Time Signed: 09/02/21 09:25 EDT\.br\Electronically Co-Signed By: Rissa Arias\.br\Date and Time Co-Signed: 09/01/21 17:11 EDT Coding Summary.on 09-01-2021 Coding Summary. [id number] Gh0 bWw+PGhlYWQ+JE6AIDLxI09 ggMBnoW9OW5aZPZ1TXOSTLH WMFN9RVJ0uaMH5GCjtX7Uls iAv TnkjcTRdVN99FAj4YPY7sZi nTSynzK6fgXHaL9u1PxXcRQ 07fW58MLihUVIeZjF4FjVdv jsgbWFy C2wiNuMniXNdWjw+PHRhYmx lIHdpZHRoPScxMDAlJyBzdH ceFS0rPg0wXPOpIJTswMdbw HNlOiBj t9uvREEyGSudYG1sjChyP6R lkUQ2SNTqt5k2Nf17lGE+PH KrNTF3gWrmPMdji603DcDph 3uwELB8 lEVjJThjVNW3H89nx1I9VCO bPYIsDZF4tZE6gE7wzFxkho zkC6EymXUyJtB9ZZV4kVWvx U4dxSle olmycF8eRpz+J50HFE1PDAE YCS5RVzj8P3WjDtnccWI+PC 22JAWpKT77zUWecJClx8oni Fk7LxCj PPZoJPY5mNzhYJufl9WmOCF sE63hhILrz3U8GRKuvLukpH BzQpRnyUH2jA4qDJjbxkwof 2hvdzsn Vjfhr9gzyc50yS63F69cUPs eFYVmDPM8RBAlZGAjoSzulv 3wnF7hYw5+PEioz4afl2rgv Ha4DaPj HOJbwrGeeXvqKFZ1y9BkGo3 6V4FlxLvyj6FyZlv8gw98zN Lns3M0qBY7GMziZNUyrX4aJ WxlZnQ6 WZAvXvUckQ95bAZfEAdoUi4 nhWtjoMkyCV0kBETbovatHR WeiL6cWMVzbYBmbXvkVX3jB TBpbjtm m032JwGpSIP4LJUgzPVmQ6G tiK4nOdMzNPTnFZWuE0KitR FiIDpqO603MVmzHwJ9YNWrq yWtI1Ru RBVpxEaeKeF4n4C9Ac0Yp6J rnkebFYJ2WDxpHKB9FxP5Jl SgJeR3K4IvDin8WZSkcQsdK M9mT6Ot QHLjktlsytkghYZ5FJNfJQJ nxV81rWRgUKwyDy8rd5F8p6 84FMZhMPZydW47Vi0mjCfcQ TBwdCBU xL3xeqiyk3wismklNpMsLQE kGQi4PKo4HZPabOtdSwEpWX U5DnF1HIU7jGQloK1leTuyp hbbcA9h Oyc+F42hcQ3mVDS3ZBY1aqo dFWPamiLjHE61GL16Z0GiCa wvdGFibGU+PGRpdiBzdHlsZ K5jXnRz u3eaw5HqOUkgF7VxAABuUPq cWzj1MLCqFZL9rQC0lF3tTV NtHFrqb3G0rQH4T9LknxTgj j5ip5cs BSTvLRltK12bmWTmf4P7UCC zsMP2EWKqqCioYvRwxL71Yr c+YYZguJldn4VcBnaih2tai 2pxbVa0 EuShRZFaljQxoLdqOGM5h5G yOy93I19lZBttSFSqTZPkZF UnVZQyuVokvr4lgP3nVe1+P GNvbCB3 bAO7mW6dIWXvYnO7FOsjS65 3EnEoySLgEyemk1lwi9iuyT u0TgBsYJKklzImuOuaKCU7h 3MfWr26 L02lCOniGSLtUSUzJWJlKYL rzBuhcn5fjN7xZt7+PC9jb2 mjgc31aX24yLA+BMPcUGM6o WxlPSdw HAWjqS6iWWsrOpG6VPEhDaO noA74gHMpTEogCp4woKcbuK hzDD1tKXDkiqnvv478XpEic 2xkIDEw yMGoOYfjYUL5J17jt9Z7OEA aEFOyIQL5aLF9yM6saYvbwq ogbGVmdDsgdmVydGljYWwtY LuwO165 IHRvcDsnPlBhdGllbnQgTmF cNKk2C8ZbHad9GABhnIgxEU 7hyURyPTseFj9olMlvkJykL C8cVBNu ympmc819GkWsq9dgEIEhzMO fFJipNLY4Y04lh8W8VZOyYS SxTQD0uKN1hZ6ijOvunfkdn GVmdDsg itFrvXrbJXfaEPxeG726LFQ odXtxOuPnjxEiTTKrhUA0YW 36FG98mVAcv2R4xBC7K6TrB GRpbmct asyscUE5JFTpPLWsnC45Dt7 btBtqAi5zGKZjOYA9TBEjfY DwL8FkjE4nRvOgEMStPUAwG 3RleHQt RNolR772TRoxIlR9CHOrpzK rV8UmUCNsjGvtWpM5z0Q6Jq 3HH1P0EE80UE82nCIdt2T3h ZS9O3Xp ZQXlrmnwgxucpGR0ZEWbSLM bcR16Qx2yuVthLb8qUEGpHU S2GDWmdCKdD2HutN7tQmYeF DAwMDAw O2ZkhHMrNHznH874TEydSyP 2KAMzmpLhM5LuQHIcuNnbCv X9x6R7Cv0YXKi3MT60AZ86l DYnp1I9 pFY8Q1IcPLSkobyhrtjyeMB 4FZAtBIBpgU95As5rhMvzIw 7eVDFsMNB8AAElgCUpS6Ddq I4vOoNx SDUtEVZrF3KrxTGrVLbyQ22 6WXxrWpO5GSCngxFpS7KqWD HskZjoGsE8w8W0Lt9GISJjD Q34UYX6 qLF8VX15VY14U3BoZwltcAI ibGU+PHRhYmxlIHdpZHRoPS jlFHZwCdXzcHqcJI2mMk7nM GVyLWNv mJkrcGIkArBms0woXUAcLSy zZU2xdYgyJ8SqpUV5XUBry4 r5Dp73M95pJ2UvyPE+PGNvb JK2tCQ7 vV5mAyFcXwX4IGtkB364GhJ tzPFyWluig0myx4arbVn2Wu A4BVXlqpHveJptLUP0a6PuZ p23E72d IHdpZHRoPSIxNSUiIHZhbGl wcx0dmX0mBc3+VBOhtDT2kR I2cG0zHePuAuR8DBswJ322G nRvcCIv Zyegr9elj2vclHw6YaDjJLR iciAjdTdqKXL3y9KnWk40C9 CaaBeqh3YaThn2th75nRVcn 0M4sNX5 V1PhYGNczudnwGNhzYtfNY7 nJEFvsmzwWZWdjA9tQLOyH5 p8RhGqVqU8ZQguW6WtuvU5Y DEwcHQg QTozRJI3G34bf8J4TCIiJMV mSTG0qBJ2lR9opExlhbunkD VmdDsgdmVydGljYWwtYWxpZ 246IHRv hCidSGOqeL9oNWWswMKquAk cRA5tGCCkrelgMm5SA5IMLx wgSEVBVEhFUjwvdGQ+PHRkI UT4yLza EGkdTLRtlZ8hZLYiE2u2RlM pVjJ6ELmrI8BiHKIjcofxJn 06dU8dQgXpLbU3PFwtG5Kwz fY9GBGl wGDkXWevYYN5H36od0X3AZX iXKZeETT5gVI1fC8cfIzmld ogbGVmdDsgdmVydGljYWwtY FkcK409 AYQdlQiqRbJkRgO8TjO9RRP 2Y0UrPgi1APBseTeiDQ7waP JjPVisPn4dcZiofBnkLC3tC TBpbjtw WYHlmA4jDKDnkCXnfIdrNZ9 oUSHywxmey925JaAhALS1KZ AqdDSeD8NppZ8aQaZbOWDeG HUoP3Ur uBTeOFofE937KRalPrZ0XUS whaQbW2GvQPYvoOumVnB3d9 F3Ke3zFnRRCUSbwzjicHU+P HRkIHN0 nPclMKdzLTXraZ1lFVTcS3t 6IjWeXsD8IKbeA3MdOZMfng ngSb96cZ2vMyUzGkI9QOsaU 1ToqzE0 ZCYnjRObOVtoSDU4Q30bw0S 4PESpGEYvYCU6iTT5aI4hrV lnbjogbGVmdDsgdmVydGljY WwtYWxp Z308FLIwfQtnRlDajTGdPVz vdGQ+JWVpBHI8zKwcGAgsVN BhaG6vHBZzW9n3UmEeAlY0V HaoJ8Dz FDYvgxtbPo74nP8hYzXaUsQ 2VFqoF5AozdL7PEUbwGLbUE fyDZU3A72uh9Y1FFKaIPUfE NE7iQY6 eD0bkKaulgnzeCNhxKjospJ jnRdlDCtyYBucG452WAQezI luYf89cUCptWpitcE2I6LtX jwvdHI+ DB27NLByEI22tACifPZid0p xtDa3GnStHHIhVKP8tIqzEK xqr2UwHVIcQ72ohSPdv4K9V GNvbGxh wPEfCaFxuJX4uK4eBIaxmit rp7rspbveLrund3aevr67kU 45Z23pPIylOMYoCVXvHGBtO HZhbGln mi0ntH2hOv6+JYBvaJD2dTI 2xU1cJfFoQcL0VKxfO839Lu VrgXDeAmsac7loh8wqqNh0X jIwJSIg onUivFvjAHX0n5MxEo34U81 sIHdpZHRoPSIyMCUiIHZhbG vhnc3kjK2dIj0+GY4xz8egi i38pO88 dHI+XIScMYB4vMraKDktIRZ wmJ4kPDgfEmC2WNVePeMnnI 04mPHpAEgoQy8lbXcenZfoN D7aINIw dllnz912GyPfb7giENVtsWJ oUPayEIZ9Q59gy3C7BALmNR JcEPH5uDK5cL9doIdbfdkqj GVmdDsg wqWyjPxtRWjhLAeoI194SNW ajZjxBhLoyGLuK1ydttWZOC 1lOjwvdGQ+FZPgSJC4rMcfP SdwYWRk qA0lAYFgO4m6EmUyBdO9KXe xD9YassS4EMEuqYFaYRIyxF AAbL1rydmnu6dheishKhArK DAwMDt0 PSb2SBMbbNxqKhQrAMN3PdN 3VWS9lAYvzW2xaOcwrmdnlF 9wOyc+RklOOjwvdGQ+PHRkI OM3eWlq RWecYBAvuC2uQPFrU2m8DeV wFaL8UNyvR9EtpyL4PMBcpO YsOXQhmLZQiY5zhnxtx8qdj jogIzAw NMJfYAi4JZe0HOLltIyjVyJ vAWT8GnH1JFP9rLOqmC5fdV szwdyxpM3uOdw+TVJOOjwvd GQ+PHRk UWE5aBlhWOtaFXDjtR6lFEG nU5v1HwOlKrF2RVqiK4Whlg L7VFQtjDNsPXEqlULHmN1uw zqqd4ox qhmlCuFgJQGzXNg2TYx4EFC ccDweJbBxEZN7RhM7CCW9bL WreY6ivLivmnkrjB3sZid+U OA6DLU4 HL63KS85J2XwZicdbOLtbDP +PHRhYmxlIHdpZHRoPScxMD BlHcZyoAwaPW8zYv6lFVDhK WNvbGxh cHNl (more content not included)... Normal [facility] Consent for Treatmenton 08-16 Consent for Treatment [id number]#1.00C D:127 Normal [facility] Progress Note-Physicianon Progress Note-Physician [id number]#1.00 CD:127 Normal [facility] Holter Monitoron 08-27-2021 Holter Monitor 48-HOUR [...] BY: Robin Salazar M.D. ls Dictated: 08/26/2021 [id number] Transcribed: 08/27/2021 cc:Samir Thompson M.D. [facility] Comment on above: Result Comment: Elec tronically Signed By: Martin DAVEY, Robin J\.br\Date and Time Signed: 08/27/21 10:21 EDT Holter Monitor [id number]#1.00C D:127 [facility] Consent for Treatmenton 08-16 Consent for Treatment [id number]#1.00C D:127 [facility] Coding Summary.on 08-11-2021 Coding Summary. CD:[id number] Gh0 bWw+PGhlYWQ+IR3VCGAgU13 wgZRxeU7RT9lIBW3JREZXPR DAZM8UUY5voUJ2YIyjU6Csf iAv PrrwgUEnMP93LUc7JOM6yRn xTKovmA1wuHHjL7v9UmGcOJ 80fS20LXwoBHIqBjK6RhCnb jsgbWFy J5uhFsPpnWZnGtd+PHRhYmx lIHdpZHRoPScxMDAlJyBzdH pbWZ3cDl8cVYPbCONcmIhxm HNlOiBj o8ppKELjQWkeTF3ajNacL6O dqOW3XUQhs4t1Tl14cAS+PH JcTLD5kKadPWfgq636FxFem 8xjDEL4 oZAxVDweGHG7V68kp6L2AWH aUZZlWYD5eSA2gM1prDxllk wcB0YwgFPbInY3ZLL8yLRvn R5zoEgf cgxrfM2zTrb+I98MCZ2DQVG JHT1KRal9P3ItTbpbjLS+PC 33WGVmDQ14fUXrfMOws3vdh Kv9TjAu GWYuVDX1uQckFUtyj1FeBUZ hZ97bwHNqq5I8OACeyHymaX KvOfIvtZD9hT9tGRbgidund 2hvdzsn Hirmu6zvem96yO75Y66uHMt tIIJfIHX8KVZlPOJicPpswi 0liR7uNr9+XJgta2wtp6bmz Wx8BiMu LTChmzJsnFtxIUP7o5QpYr5 0V8VxkRwmj2YsXoq1lh01fS Xkp6P0jHW4POisWOIrzN4tV WxlZnQ6 YUZgRfHqcP81zJLfDRriDf4 efVrvhCbcQG7aGQWlnpkkAW XziO6uDAMfiPQmeXioNY9tT TBpbjtm o201BwTwMIU8TBTzgFPfZ9R euX9mBcGvJNFbWCGtW5OpdT AfMUlaY387CXpjWiB7DDZgi qHzV7Bp PBSxaMtrTzF0x7S0Wb9Ja1C ltlhmXBQ4BUxqKUQ5BjG1Os NmFiL3W5RxKjn4DZBfbDtyK G9iQ5Pi KDGwdptxexbzpNZ2PFSkWTE lwO44eMQbQIciXc8cp7N3g9 05HLXwBKGqtZ47Vd9bgTcpT TBwdCBU aS2bwyczm9axttmiRcErEYN cPJw6HBs9SNYdgDhyUoDjXN N2RrW9WEQ2bBBicE6jeSsrg ywvuO9r Oyc+Z45edI1oAML0AQB7gbm aRFBgbwMbXS16DP67C5MsOu wvdGFibGU+PGRpdiBzdHlsZ H3aHpMv t9sxf2YmVGukU6PjLYFdECb iRwe0GGPbZFD4tLG3iU7vGF OzYZgro4K1bVE0F1HoauPrw o9hn7ni BPPhYVazN36uzNHtf5O7TSS swRX0KKJkrNeuOzYbpY57Ia c+TEXvdLxzs9DiUqkqv5tpl 5jxyFg2 EoQgZYDnpnYwqGnjSTX1k7U nDw93R89oKNuxAFKxXOOmEE JaFRTmpMmtpz5zdA4cSg2+P GNvbCB3 hSF4oA3fLBWzBuA1WVnhG58 6LwPwpREuJvvar6xuq7vryC b9LaTsCWAphtByaLghNJY3h 7XbOx73 U20eUHjvDENzZVJpGQBuBEZ qjQvfgq4mxA2eQr7+PC9jb2 moxw67bX57cFV+EFVvQLL8i WxlPSdw ATWhrX6aNOscJmZ2DOSdDtT lyC19cGBlAAlkIv6aqMeewQ heYK2pOEXlaigbd402IoQui 2xkIDEw yIPiWLfkMKZ6A46jc1A1DPH hZZDbFWN7nYZ1hN4xePajcf ogbGVmdDsgdmVydGljYWwtY OfaM738 IHRvcDsnPlBhdGllbnQgTmF dEBa4D4JzByt8VCMryMxeBT 7ejDByKWuiSx0ulMvfzOowO X9uATXc bwedk385HbJmp7wfTIVmmAM gKNnpRFF7C21mm8A7WRKwTN UhQYK6iYI9oF7zbPjpnpsto GVmdDsg nkXmcIuaCZgcFFftT184NHN jvBxnPsWfbcKiZWVhqLS7ZT 35ZS36hJTac3F8aBB0V6NsV GRpbmct zulohOQ4PNKfNJWfqD19Tb9 xcEqxRg5aGJKrGNW9GQKjmR LgW0RybJ2pRcOnZJSwHYJsP 3RleHQt VFtcD334CCrpEfU4CPLsocZ eM3IsYWPrjJtpRdS4m6V2Ma 8ZY8P2IM48CV69fMQpl1L8t CO8Z7Fk GMDbmrcupzpiqSV9JTRnHKX cqG25Gr8bzSnfRs1uBGKiPE N9WNRyiNMlJ5LqwS5lZnZqT DAwMDAw B4WylXHxZMqpZ975WNoeUeR 2OPOxtnXsN2UeLEOojGvkXu B0w4P6Wb6DHDl1KT20EM66f NUas5U4 aIN8B9AxESEqytvhlzlqaLS 1JKXwSPGhtQ89Lv5vrPilVc 8mCGXxJRN6BOLzbEGpQ8Ckc M4cQiKb NABrRBXaM7BngEGoVJudV58 7JYxhUiY5GDGoyqVoR0JzBN NxxCtyPtN9v7G1Te1BEBTsG M95WVP1 yHW9SK45IK24J6EiKuankRU ibGU+PHRhYmxlIHdpZHRoPS ffEATuYqLiuNpqSE8gUz6rY GVyLWNv fIqjgXHbWeVxa8rnVOCbGRs gYY1imMpeP4FxnUM8AVOhw9 n0Ac01Z38qY2FvtZJ+PGNvb QT4tXG8 sS0gJtVrWvJ0GRhfC890FxS dgFNsCbsju8smy6jwvAa0Kf K3RSSkorNhxTojAYA5s9SiT k02E24a IHdpZHRoPSIxNSUiIHZhbGl lsr4dvY4lRr5+CEGoeHQ2pF X2tG0cRfRfAhB8UYwrT183P nRvcCIv Sifmn0prp0osiEn4KdTvWOD zabVigCkaMLE0c7RnLa95Q3 VawMkkn3CfTtv2pi78kPSma 9U7yBB8 P6ZxGSEllntnrHGhkHrgYP0 sQQEbeaeoLPPcaB4vFROzY4 h0VfWeJyH1BMmwR7JeygH7B DEwcHQg THulNKF8Y89ly9Z9MVXlFEQ tHAL9hXD0aX7lxYllvwxojK VmdDsgdmVydGljYWwtYWxpZ 246IHRv vIbgYTKvhJ9kJKQroIQfdWf nWN0eZRUufsceBe1MS4AFIx wgSEVBVEhFUjwvdGQ+PHRkI OL3xSaw ROyqVOUzcE6qPINaQ9g4PnD qUmB1VIqnQ6NdVAVzqrbiWa 35bI4cEdGtPtX9YXfmY6Mkp kN3VWYd lMAmGUqtJPT6B76yu8E4MJW kAVZvFEL1iYU7cJ8ehBpgpz ogbGVmdDsgdmVydGljYWwtY OyaU472 KLXqaTsoKlDhOhI5LvM6YOH 8Q8IhIkp0VZPfpEhaAM4yuU MrNTtsXv8kaSjsoUaeKO4vZ TBpbjtw MSSkdO5hLORtgSDeaXtbKH7 lUOHgbeqva800LkWcMAS8OY BujDLaV2PoaR2bGsLxHSUvN MUuU0Lv tFMzEPskC528OVcoMaT6RTV fcbBgW9FjBMSinKxfIpF7k9 V6Mk0yBfUMAJObzufxjMV+P HRkIHN0 uUfxITaxPKJntG6ySAIgJ9v 0EfGbRyN1JBdtV4AyUIDjzm jvPp69kT6nRlMkQhK3WNirK 3LlgbK1 MDPfyLYoOBzrAKG4N32wl3B 4JVEtHLXsIZD4xWH9uA9eeJ lnbjogbGVmdDsgdmVydGljY WwtYWxp B781UCCrwDivTxFikPQkBYt vdGQ+JDWnRVE7sTunICksWB GpdO5lGJLxO7z8HzKvQhO8J WknS3Gy DUHnjlbgQv87pA7ySnLlJnC 1VPtzJ7ZcuiY1EVCfnGZqJV qhDJB7O82hr7F2YBXmMOFwW KU2dJY8 tJ4tqApptmwbtYWrgBcnijX wkMoyBBisFTkfO267KIZbeQ vtUm56mOOeiBkixjQ4M5ZyG jwvdHI+ HK91CCKeDV57jJQpgTSwn5q dgWt0HvAiHXJlQJW6zWvnZR osy2YaDFRxT75tqWQmt6J8O GNvbGxh uGIiWwRqaSW6jX5vIQtmoto aw7skxxwxMfkoe2wwxj92yF 52H55sYNqdTIHqQDMbGOWaN HZhbGln tx7jlE9cHq8+OKIzzNG1qNP 8bV4eThQuWnP0GTxfW344Wj TxkCXkGklon0tgz5umlJv1N jIwJSIg agVrpLldWZL8k0SyEq11Q39 sIHdpZHRoPSIyMCUiIHZhbG zkjz7rmP3oVw9+NS9ee8icf b75wP46 dHI+QKJvJBG3cYylSQuzYAW qiW8nUFnoUjN6SAXcNoHhoO 64rAZlVKttRg6ukBvptNknO H9vRAHi dzebk555JmUmi7feXKCbxQD mTJbaLCL5Y26lu4R3SPMhCF RoLAS2pAJ9jR3ueQowxvarh GVmdDsg hlRksJgpNUivMZirE092NGY ldNhrNqCtiUJvX7cguhVLFT 1lOjwvdGQ+UWQsSON7bByjQ SdwYWRk iX8wUZDeO4n6WtJqYxB9GFu tY0ElozT8FWEgjPLgMTYpvJ VZjH7idzzab3bhnwugAxWjM DAwMDt0 FCt8GMBznJdbVpAyUAQ8DyK 7WOZ3dBRrnI7tsRorxuvktD 9wOyc+RklOOjwvdGQ+PHRkI QA4wAhs FJtjPVIoxK9iODCbB0s6LlW pBdR8BFfsE7LvnwU3CRSqwR TfEZTogKSSqA3ieewfb6arf jogIzAw KKSaGRo5WMp3IXTcyBggZzA nIZK4QcU3BIJ7rNCktH5fnT agsreloI2eNuc+TVJOOjwvd GQ+PHRk RMI2fChqHYhxGMQkpD5lSGN vC5q9CpWdYfK2ADvaL0Kkab U5IVWsiNWrQUPhjGBOmR2co eeia5fj bnozNqRiKSKdKSa5YTg3SPL ktYehCfOpEBS9WkT5SJQ9hS PrcF1ayAvzcreawC8wVuo+U QI7VKW6 XC90AN97Q1GsMncznGTnmDZ +PHRhYmxlIHdpZHRoPScxMD QtAoUpaWsyXO1yXs9oNGVwR WNvbGxh cHNl (more content not included)... Normal [facility] Stress EKG Tracingson 2021 Stress EKG Tracings [id number] 052 [id number]#1.00 CD:127 Normal [facility] Consent for Treatmenton 07-18 Consent for Treatment [id number]#1.00C D:127 Normal [facility] Coding Summary.on 08-03-2021 Coding Summary. CD:[id number] Gh0 bWw+PGhlYWQ+EU6ZMYYvI90 dfCOtoF2OG1cOHP1XUDJVUL QTVY4JAD7tvMZ4NEqmH5Gka iAv JahecCQsRP35JCo9TWH0iWp mYAuxuQ0soTZsS9d3AcIfII 66xF57ASbtIZAiTrS7OyTqf jsgbWFy D6cqCbFdqGDfVlj+PHRhYmx lIHdpZHRoPScxMDAlJyBzdH jzJP6zLc6bGWGpFBSbeUbch HNlOiBj o6tzRZQvPBleCY7dnFooC9E frCM4WBNnm8b6Ot22jIW+PH KvSHT5yLuqVCyec864IdUfr 7xyWLC5 yBOxMEldULW5R58ed8K5LII yHJQjLFH6lCL8dG8qzFjvyv swU3ZvtEQyQdA5ZEK2iZMnq T7mxTmf djzxlH9eXhf+H55WBS9ICCA SOQ4LIow4Y1RcFvibwST+PC 90SGImOF47uZGzbLLdd5hwc Oc6AvPt RLAuFES1lTtoZDgbo5RaMSH oG61ojTFob7I9QTYrtOobsX QcFxCieXA6oO6rNEmceoinv 2hvdzsn Ompvf5vzjp81hK98X39cGMc kYDSvBRN4HIGnVBFnlBrbrq 8hcM9gRj6+OKcmn9gpa9wnd Ri2NaJp GKWcbjZodGleAEN6i4KuZz8 8I3IxlQkqg9JdDfw4ie72eI Rwg7Z3aQQ0LXnpHFVgwW7gE WxlZnQ6 UFBuPkXwaY11rCMoRRzpIj0 apJkkdJuaFT9fDAKnfeybKG RvaR3mIKUnnTEeuLraYQ9yU TBpbjtm u147AqDaFOY5GFEsjIDhJ1M bsO4fTxSpQSPlGZFaZ2YzsL OtOQoxR155NIdxGlT7QZCto zAkW0Gv CWUwqKdjOxF6f0U2Mt5Wb5J cuioaRUK3WXiwUYS6PcI5Hh DxYkI7C0YySmk8HGOrxDiyJ N0jB8Ir PDNiwozogtbgmST5QRDiMEB mvL76oGQvELowXf5ea1G7k3 86KDBuDDVzpP72Oj4viKwfY TBwdCBU lX2edvpxj2bbdxkuXpBrFBC kMRx9VYl9CSSvaHcqElAgSB T2IpC6WJI3kQRvdO1fhTpzq qsrzY3c Oyc+H71hdF1vQQH5SJS2nxo jYDFcvnRfCU98GT42C6PgLy wvdGFibGU+PGRpdiBzdHlsZ S3xYqMw b2ppz6NmURqzW9XxXDOnISd mXez2GJTmBWM9uRB9dW4gMK JsKSkld5L0oMJ8F8GhecBym k7ca6vu HLRqVEtnK22ywPPut9C2EQK vmTG0RCSxxZpfWyUrvB33Kf c+SPXfeOiit8DrQbopq9seq 4baqXn7 NrXfPHIhofSynVkxJAJ2m8S bFq32R10tVDsuBZOqFGApDT QnAXDryJczxi8rdG2sTa3+P GNvbCB3 rBP5eO0nPNRxWsY7KCzyZ60 6PyPvuOYfUbbkr6xrg0ridR e7JzNzTROovoGnqPauIDD0c 8QxIu85 M61cJSdqIGEuOHBpLWJwPHF juZkppb5rsJ1bAw9+PC9jb2 hkte85gE95dKR+IMBiQRY0y WxlPSdw QGUygR6zWAqnAhA8ZMMlViF amG56nUKxSRjnOk6myPdlqR qeMA2lYAYayisax156BpBgr 2xkIDEw uBLqHKnjRDK2U92ic4H2XBI iVXWjZLN5gMD7yE6leBuaao ogbGVmdDsgdmVydGljYWwtY BrtZ169 IHRvcDsnPlBhdGllbnQgTmF fMKx0D5DeJxt4SGVfuJrrGE 0qoXSyHAtkEq8fqDrqdFcbR Q8qUFHp etyab235TfGdh9alHAKepDM eOVveWSY6R00us0P6RKPdVY FlQDT7xIG8wF7crZnclslqw GVmdDsg kbUlrEfgAWkiBCfvN753UPQ mtThlWzJasnLeKKIhoRP5UY 60VF16iNKqg5Y7pNE8Z0PfK GRpbmct pkwwhIV3FGZyPJGsnI28Bl2 mqQpxBd4hDKQmMIB7DGYldG PoL5XjwP6rWhVpAWLlCSLyR 3RleHQt WRmpV008KLnrWuC6JQRzrsI cM6ReTNWbeLseKnG0t5R1Np 1SO6S4UR90FT77gBMmq3P2q BY6T4Mb ZOSjcqktknacsWQ4SMWvOTK phJ30Om8keXnqPb3qZEPiHO C2CVLyrOHgU6XslK8gOxAuM DAwMDAw M3CqjIPdKRaoL223AZtyVbF 2CXJjqoLoA3DhOQHpoRgfFl F3y4Z3Uo7VWCm3XC69YQ93j TOaa8E4 zQH9H8YeMMAwmkgqbivsoEJ 8TRRuCJKixQ76Yg8xePytHn 5bJXMyDTY5VIGxwCYtW9Wpq H7mHzLu QJRnPEPxZ3UnwOBdKRdfY85 9YElfSjQ5VQIrcvLhW3NeUQ KeuKlbMdF5z8E5Gx1GHHFuN M66TLJ2 eMB7UQ22FY46B3TbUflbbCR ibGU+PHRhYmxlIHdpZHRoPS phZQXgDmJcyXtkYV9zIa8vR GVyLWNv lGnnwYPtYjUzq6zlFEJwKWy tIH8plXmbH3LjmQF7FHRoq4 w4Lr60L48dE6ZidTA+PGNvb XD4lYS8 cH2gTbXkSwT7LXhsQ756IfC ubMOtKrhgt1qlt7zrnUx4Tw N0VULrofQyxQfsNLE2y3YcN w40I68h IHdpZHRoPSIxNSUiIHZhbGl qcn9wmB7jXt6+CAOfoDE5cG R2bC2bOoTzBzF2BGvhW316R nRvcCIv Ufxfu9nul6wohAa7YaUkIPX gzsQmsKmeGIG5h6UoVs53T9 WtiWosr5CyOgp0ar74xTFyq 8P1pNB4 Z5PqFPIangbkrUQwsVzkSQ1 kLUCrkwpiQTEvoQ2lAAKyX4 m6GrQqOmJ1TTvgD2WlxyZ1L DEwcHQg YIveNBT7B67dc2U7TCFbWSC iXHT8mBP9dZ2haIphaodgmL VmdDsgdmVydGljYWwtYWxpZ 246IHRv pWliHJFqdW4qAWMcySGrzEq lUW3yFZPxhxljXd6PZ3PXUl wgSEVBVEhFUjwvdGQ+PHRkI PE3bEtz KFrsVFGccV4fDPQqT5j6BfR jHaZ8DZdxS1IbWRXinjppJh 19cG4dNsHbLkQ0ZShoF9Nap sO5RQUi dHZsBMpeJIB5H90se5P2JBO yDZBfPXZ9tGM8sR9mfYarvg ogbGVmdDsgdmVydGljYWwtY GnuL036 UZWvxSxnXyIxCdW8UbG0CUD 7Y1BiYnl7ADVsoDjmRE7mxA GjFVxqJk4gnZtuiFdzGI8zS TBpbjtw VTCqxE5wVHMumHWqsQagHJ3 lDQVwcpfio663FoQcMAK2JP OfeOSzA5ZbfO6iGpDoKAFpK RYdM8Xa iOSqIDypW881IFrvEwZ5WCM hxpDeD6GkOHBldJchNfO0b8 K8Qf9qOeKRENGqwcelnNO+P HRkIHN0 kWdoYWnlVAUrjW9gIZRuD1n 8FaOlMvR3VRxdV8QuGSWxvh kfOo60jP2oSzQkIdI3NWrrX 1EcjpM2 DZPoqLIjBMmiNQI8Y70jz5X 6AFTaDEVyTEH1qUC1zB2tjK lnbjogbGVmdDsgdmVydGljY WwtYWxp L508UUNfgLxiMzLbdXBgBNr vdGQ+YFFnMUF6hFgtGPpiNZ HetJ7rZYJdE8u6DeTyLoS2F GbhI9Ad MJIslutvOc83mG0oYiImNuB 9EGljR8AckwV9BOCrtCGzGY jnDMC0F97jd3W2GTDkUXHiR NX9iJS4 lX4jmKzdtdxsyKFtbJfkqjQ aoLhfCGflZMaaF574BTGrxT zpTt34nRFuwHjyhtM1Y2HeK jwvdHI+ IT52NJWxVC78eXQhtOSid9i mwRd0LwYaVYIfHJP1oWxhGO osk9IvVCKkN61lcDRoa6E3E GNvbGxh qPGqSxXtbQR7kX4oUKewvqq kx9cvfzsgDzdjv7txwi39rA 43A97gIBauGVEbSECdHJOoM HZhbGln ea1ftL7kNg0+VOMafLH9kJK 9sM1tUoYtViI1BNyuN842Bh WdhSGiPcunl6bgd6uhmUf1Z jIwJSIg nzMrjRrrLCS8t4QpCh77D32 sIHdpZHRoPSIyMCUiIHZhbG gjjr1yqN1oAj0+NL5cf6sdi x42vO22 dHI+THGdSYR0tHboGVwsVFN mqL0aECawJpG4ZEUyGjOvzK 48jDDsRKevDm8jpLonpNckS G5rYQEt kugcu403FsYjd4lhZURswPL lAGghYVL8E30qy8W6CLTtXL ZhSHG1rNG1oF7akRrvcrkfp GVmdDsg zvEijDpdFIdyXRjlZ304ZLA rdAnxXbBunYRlX2bscpOIDV 1lOjwvdGQ+DGLiZOR0aBmoN SdwYWRk kI4wYRFtU4u8OfUmCmE6RFq oX5AoulB3TSQrxQXlIPJyqH ZZlA3bpifnn8znhscqAjGuC DAwMDt0 JYf9CDFzmXwqTzViRQT0VoC 9SHL6xVOggD7upYvgengkcS 9wOyc+RklOOjwvdGQ+PHRkI WR3jJby ECyzNZXbvY9iEOKzF7h2AvN zOtW3ZPmtK7AhlpY8QQZsjO PdFTVbmKAJiN6xbzrpa4adi jogIzAw FIPuZRq6PJt7RYWoaMsyUqH wEWB7DtW2KRE3fRYxoD7imJ gqhxobsA1oHoi+TVJOOjwvd GQ+PHRk EUK2oBwrVKcxJCHmeS9fJIO kI2f1FpKrIyX3GNdqO1Assq G0VNWltTFcDWRuvGTSfF7wt nydq4zj wrjiRdYaFIMiMDj0VWh5CGA xmPzjFdJhSFJ1SkC2LYB6mI DgcH6exFcjivixuY7tVzq+U HZ2HYN2 KU68EI83R5AtXqvgnSWjhMM +PHRhYmxlIHdpZHRoPScxMD YdPqFikMibDX5hEb3aHMEfU WNvbGxh Nl (more content not included)... Normal [facility] Progress Note-Physicianon Progress Note-Physician [id number] CD:127 Normal [facility] Heart and Vascular Office/Cl inic Noteon [...] rate increases with exercise. She presented to [facility] 2 weeks ago for suspected nephrolithiasis [...] after patient or guardian consented to allow [employer] to record this visit. ANAMARIA paralegal specialist and provider reviewed before signing. ANAMARIA: [...] (more content not included)... Normal [facility] Comment on above: Result Comment: Elec tronically Signed By: Jay DAVEY, Samir Rivera\.br\Date and Time Signed: 07/27/21 10:44 EDT\.br\Electronically Co-Signed By: Rissa Arias.br\Date and Time Co-Signed: 07/24/21 16:24 EDT Consent for Treatmenton Consent for Treatment [id number] D:127 Normal [facility] Referrals Officeon 2 Referrals Office [id number] CD:127 Normal [facility] BASIC METABOLIC PANELon 04-19 Anion gap [Moles/Vol] 8 mmol/L Low 9 - 17 mmol/L [place] Bun/Cre Ratio NOT REPORTED [facility] [place] Calcium [Mass/Vol] 9.2 mg/dL 8.6 - 10. 4 mg/dL [place] Chloride [Moles/Vol] 105 mmol/L 98 - 10 7 mmol/L [place] CO2 [Moles/Vol] 26 mmol/L 20 - 31 mmol/L [place] Creatinine [Mass/Vol] 0.67 mg/dL 0.5 - 0.9 mg/dL [place] GFR >60 >60 mL/min [place], [place] GFR Non- >60 >60 mL/min [place] GFR/1.73 sq M predicted among non-blacks MDRD (S/P/Bld) [Vol rate/Area] NOT REPORTED [place] GFR/1.73 sq M predicted among non-blacks MDRD (S/P/Bld) [Vol rate/Area] [place] Comment on above: Average GFR for 20-2 9 years old: 116 mL/min/1.73sq m Chronic Kidney Disease: <60 mL/min/1.73sq m Kidney failure: <15 mL/min/1.73sq m eGFR calculated using average adult body mass. Additional eGFR calculator available at: http://www.DailyObjects.com/multiple_crcl_2012.htm Glucose [Mass/Vol] 99 mg/dL 70 - 99 mg/dL [place] Interpretation and review of laboratory results Abnormal [place] Potassium [Moles/Vol] 4.5 mmol/L 3.7 - 5.3 mmol/L [place] Sodium [Moles/Vol] 139 mmol/L 135 - 144 mmol/L [place] Urea nitrogen [Mass/Vol] 5 mg/dL Low 6 - 20 mg/dL [place] Basic Metabolic Profon 05-08 (cont.) Normal [facility] Comment on above: Result Comment: Aver age GFR for 20-29 years old: 116 mL/min/1.73sq m Chronic Kidney Disease: <60 mL/min/1.73sq m Kidney failure: <15 mL/min/1.73sq m eGFR calculated using average adult body mass. Additional eGFR calculator available at: http://www.[employer]Grid[employer]Home/multiple_crcl_2012.htm Performed By: #### C BC, PT, PTT, BMP #### [facility] [address] [place] [address] Supply Chain Manager: Casey Marques MD #### ANICOT #### [facility] [address] [place] [address] Supply Chain Manager: Adolph Diaz MD Anion gap [Moles/Vol] 8 mmol/L Low 9-17 [facility] Comment on above: Performed By: #### C BC, PT, PTT, BMP #### [facility] [facility] [address] [place] [address] Supply Chain Manager: Casey Marques MD #### ANICOT #### [facility] [address] [place] [address] Supply Chain Manager: Adolph Diaz MD Calcium [Mass/Vol] 9.2 mg/dL Normal 8.6-10.4 [facility] Comment on above: Performed By: #### C BC, PT, PTT, BMP #### [facility] [address] [place] [address] Supply Chain Manager: Casey Marques MD #### ANICOT #### [facility] [address] [place] [address] Supply Chain Manager: Adolph Diaz MD Chloride [Moles/Vol] 105 mmol/L Normal 98-107 [facility] Comment on above: Performed By: #### C BC, PT, PTT, BMP #### [facility] [address] [place] [address] Supply Chain Manager: Casey Marques MD #### ANICOT #### [facility] [address] [place] [address] Supply Chain Manager: Adolph Diaz MD CO2 [Moles/Vol] 26 mmol/L Normal 20-31 [facility] Comment on above: Performed By: #### C BC, PT, PTT, BMP #### [address] [address] Supply Chain Manager: Casey Marques MD #### ANICOT #### [facility] [address] [place] [address] Supply Chain Manager: Adolph Diaz MD Creatinine [Mass/Vol] 0.67 mg/dL Normal 0.50-0.90 [facility] Comment on above: Performed By: #### C BC, PT, PTT, BMP #### [address] [address] Supply Chain Manager: Casey Marques MD #### ANICOT #### [facility] [address] [place] [address] Supply Chain Manager: Adolph Diaz MD GFR, Amer >60 Normal >60 [facility] Comment on above: Performed By: #### C BC, PT, PTT, BMP #### [address] [address] Supply Chain Manager: Casey Marques MD #### ANICOT #### [facility] [address] [place] [address] Supply Chain Manager: Adolph Diaz MD GFR,non Amer >60 Normal >60 [facility] Comment on above: Performed By: #### C BC, PT, PTT, BMP #### [facility] [address] [place] [address] Supply Chain Manager: Casey Marques MD #### ANICOT #### [facility] [address] [place] [address] Supply Chain Manager: Adolph Diaz MD Glucose [Mass/Vol] 99 mg/dL Normal 70-99 [facility] Comment on above: Performed By: #### C BC, PT, PTT, BMP #### [address] [address] Supply Chain Manager: Casey Marques MD #### ANICOT #### [facility] [address] [place], [place] [id number] Supply Chain Manager: Adolph Diaz MD Potassium [Moles/Vol] 4.5 mmol/L Normal 3.7-5.3 [facility] Comment on above: Performed By: #### C BC, PT, PTT, BMP #### [address] [id number] Supply Chain Manager: Casey Marques MD #### ANICOT #### [address] [id number] Supply Chain Manager: Adolph Diaz MD Sodium [Moles/Vol] 139 mmol/L Normal 135-144 [facility] Comment on above: Performed By: #### C BC, PT, PTT, BMP #### [address] [address] Supply Chain Manager: Casey Marques MD #### ANICOT #### [address] [id number] Supply Chain Manager: Adolph Diaz MD Urea nitrogen [Mass/Vol] 5 mg/dL Low 6-20 [facility] Comment on above: Performed By: #### C BC, PT, PTT, BMP #### [address] [address] Supply Chain Manager: Casey Marques MD #### ANICOT #### [facility] [address] [place] [id number] Supply Chain Manager: Adolph Diaz MD BUN/CRE Ratio NOT REPORTED Normal - [facility] Comment on above: Performed By: #### C BC, PT, PTT, BMP #### [facility] [address] [place], [place] [id number] Supply Chain Manager: Casey Marques MD #### ANICOT #### [facility] [address] [place], [place] [id number] Supply Chain Manager: Adolph Diaz MD Staging: NOT REPORTED Normal [facility] Comment on above: Performed By: #### C BC, PT, PTT, BMP #### [facility] [address] [place], [place] [phone] Supply Chain Manager: Casey Marques MD #### ANICOT #### [facility] [address] [place] [address] Supply Chain Manager: Adolph Diaz MD CBC WITH AUTO DIFFERENTIALon 05-08-2020 Basophils (Bld) [#/Vol] 0.06 10*3/uL [place] Basophils/100 WBC (Bld) 1 % 0 - 2 % [place] Differential Type NOT REPORTED [place] Eosinophils (Bld) [#/Vol] 0.35 10*3/uL [place] Eosinophils/100 WBC (Bld) 3 % 1 - 4 % [place] Erythrocyte distribution width (RBC) [Ratio] 14.7 % High 11.8 - 14.4 % [place] Hematocrit (Bld) [Volume fraction] 38.4 % 36.3 - 47.1 % [place] Hemoglobin (Bld) [Mass/Vol] 12.0 g/dL 11.9 - 15.1 g/dL [place] Immature granulocytes (Bld) [#/Vol] 1 % High 0 [place] Immature granulocytes (Bld) [#/Vol] 0.06 10*3/uL [place] Interpretation and review of laboratory results Abnormal [place] Lymphocytes (Bld) [#/Vol] 2.21 10*3/uL [place] Lymphocytes/100 WBC (Bld) 21 % Low 24 - 43 % [place] MCH (RBC) [Entitic mass] 26.5 pg 25.2 - 33.5 pg [place] MCHC (RBC) [Mass/Vol] 31.3 g/dL 28.4 - 34.8 g/dL [place] MCV (RBC) [Entitic vol] 85.0 fL 82.6 - 102.9 fL [place] Monocytes (Bld) [#/Vol] 0.71 10*3/uL [place] Monocytes/100 WBC (Bld) 7 % 3 - 12 % [place] Platelet mean volume (Bld) [Entitic vol] 8.6 fL 8.1 - 13.5 fL [place] Platelets (Bld) [#/Vol] 256 10*3/uL [place] Platelets (Bld) [#/Vol] NOT REPORTED [place] RBC (Bld) [#/Vol] 4.52 10*6/uL 3.95 - 5.1 1 m/uL [place] RBC morphology finding Nom (Bld) ANISOCYTOSIS PRESENT [place] Segmented neutrophils/100 WBC (Bld) 67 % High 36 - 65 % [place] Segs Absolute 7.30 [place] WBC (Bld) [#/Vol] 10.7 10*3/uL [place] WBC (Bld) [#/Vol] 0.0 10*3/uL 0.0 per 10 0 WBC [place] WBC Morphology NOT REPORTED [place], [place] CBC with Diffon 05-08-2020 Abs. Basophil 0.06 k/uL Normal 0.00-0.20 [facility] Comment on above: Performed By: #### C BC, PT, PTT, BMP #### [facility] [facility] [place] [address] Supply Chain Manager: Casey Marques MD #### ANICOT #### [facility] [address] [place], [place] [id number] Supply Chain Manager: Adolph Diaz MD Abs.Imm.Granulocyte 0.06 k/uL Normal 0.00-0.30 [facility] Comment on above: Performed By: #### C BC, PT, PTT, BMP #### [place] [address] Supply Chain Manager: Casey Marques MD #### ANICOT #### [address] [phone] Supply Chain Manager: Adolph Diaz MD Abs.Neutrophil (Seg) 7.30 k/uL Normal 1.50-8.10 [facility] Comment on above: Performed By: #### C BC, PT, PTT, BMP #### [place] [address] Supply Chain Manager: Casey Marques MD #### ANICOT #### [address] [address] Supply Chain Manager: Adolph Diaz MD Basophils/100 WBC (Bld) 1 % Normal 0-2 [facility] Comment on above: Performed By: #### C BC, PT, PTT, BMP #### [place] [address] Supply Chain Manager: Casey Marques MD #### ANICOT #### [facility] [address] [place], [place] [id number] Supply Chain Manager: Adolph Diaz MD Eosinophils (Bld) [#/Vol] 0.35 10*3/uL Normal 0.00-0.44 [facility] Comment on above: Performed By: #### C BC, PT, PTT, BMP #### [place] [address] Supply Chain Manager: Casey Marques MD #### ANICOT #### [facility] [address] [place] [address] Supply Chain Manager: Adolph Diaz MD Eosinophils/100 WBC (Bld) 3 % Normal 1-4 [facility] Comment on above: Performed By: #### C BC, PT, PTT, BMP #### [address] [address] Supply Chain Manager: Casey Marques MD #### ANICOT #### [facility] [address] [place], [place] [id number] Supply Chain Manager: Adolph Diaz MD Erythrocyte distribution width (RBC) [Ratio] 14.7 % High 11.8-14.4 [facility] Comment on above: Performed By: #### C BC, PT, PTT, BMP #### [address] [phone] Supply Chain Manager: Casey Marques MD #### ANICOT #### [facility] [address] [place] [address] Supply Chain Manager: Adolph Diaz MD Hematocrit (Bld) [Volume fraction] 38.4 % Normal 36.3-47.1 [facility] Comment on above: Performed By: #### C BC, PT, PTT, BMP #### [address] [id number] Supply Chain Manager: Casey Marques MD #### ANICOT #### [facility] [address] [place] [address] Supply Chain Manager: Adolph Diaz MD Hemoglobin (Bld) [Mass/Vol] 12.0 g/dL Normal 11.9-15.1 [facility] Comment on above: Performed By: #### C BC, PT, PTT, BMP #### [facility] [employer] [address] [place] [address] [id number] Supply Chain Manager: Casey Marques MD #### ANICOT #### [facility] [address] [place] [address] Supply Chain Manager: Adolph Diaz MD Immature granulocytes/100 WBC (Bld) 1 % High 0 [facility] Comment on above: Performed By: #### C BC, PT, PTT, BMP #### [address] [address] Supply Chain Manager: Casey Marques MD #### ANICOT #### [facility] [address] [place], [place] [id number] Supply Chain Manager: Adolph Diaz MD Lymphocytes (Bld) [#/Vol] 2.21 10*3/uL Normal 1.10-3.70 [facility] Comment on above: Performed By: #### C BC, PT, PTT, BMP #### [address] [address] Supply Chain Manager: Casey Marques MD #### ANICOT #### [facility] [address] [place] [address] Supply Chain Manager: Adolph Diaz MD Lymphocytes/100 WBC (Bld) 21 % Low 24-43 [facility] Comment on above: Performed By: #### C BC, PT, PTT, BMP #### [address] [address] Supply Chain Manager: Casey Marques MD #### ANICOT #### [facility] [address] [place], [place] [id number] Supply Chain Manager: Adolph Diaz MD MCH (RBC) [Entitic mass] 26.5 pg Normal 25.2-33.5 [facility] Comment on above: Performed By: #### C BC, PT, PTT, BMP #### [address] [address] Supply Chain Manager: Casey Marques MD #### ANICOT #### [facility] [address] [place], [place] [id number] Supply Chain Manager: Adolph Diaz MD MCHC (RBC) [Mass/Vol] 31.3 g/dL Normal 28.4-34.8 [facility] Comment on above: Performed By: #### C BC, PT, PTT, BMP #### [address] [address] Supply Chain Manager: Casey Marques MD #### ANICOT #### [facility] [address] [place] [address] Supply Chain Manager: Adolph Diaz MD MCV (RBC) [Entitic vol] 85.0 fL Normal 82.6-102.9 [facility] Comment on above: Performed By: #### C BC, PT, PTT, BMP #### [address] [address] Supply Chain Manager: Casey Marques MD #### ANICOT #### [facility] [address] [place] [address] Supply Chain Manager: Adolph Diaz MD Monocytes (Bld) [#/Vol] 0.71 10*3/uL Normal 0.10-1.20 [facility] Comment on above: Performed By: #### C BC, PT, PTT, BMP #### [address] [address] Supply Chain Manager: Casey Marques MD #### ANICOT #### [facility] [address] [place] [address] Supply Chain Manager: Adolph Diaz MD Monocytes/100 WBC (Bld) 7 % Normal 3-12 [facility] Comment on above: Performed By: #### C BC, PT, PTT, BMP #### [address] [address] Supply Chain Manager: Casey Marques MD #### ANICOT #### [facility] [address] [place], [place] [id number] Supply Chain Manager: Adolph Diaz MD Neutrophil (Seg) 67 % High 36-65 [facility] Comment on above: Performed By: #### C BC, PT, PTT, BMP #### [address] [address] Supply Chain Manager: Casey Marques MD #### ANICOT #### [facility] [address] [place], [place] [id number] Supply Chain Manager: Adolph Diaz MD NRBC Automated 0.0 per 100 WBC Normal 0.0 [facility] Comment on above: Performed By: #### C BC, PT, PTT, BMP #### [address] [address] Supply Chain Manager: Casey Marques MD #### ANICOT #### [facility] [address] [place] [address] Supply Chain Manager: Adolph Diaz MD Platelet mean volume (Bld) [Entitic vol] 8.6 fL Normal 8.1-13.5 [facility] Comment on above: Performed By: #### C BC, PT, PTT, BMP #### [address] [address] Supply Chain Manager: Casey Marques MD #### ANICOT #### [facility] [address] [place], [place] [id number] Supply Chain Manager: Adolph Diaz MD Platelets (Bld) [#/Vol] 256 10*3/uL Normal 138-453 [facility] Comment on above: Performed By: #### C BC, PT, PTT, BMP #### [address] [address] Supply Chain Manager: Casey Marques MD #### ANICOT #### [facility] [address] [place], [place] [id number] Supply Chain Manager: Adolph Diaz MD RBC (Bld) [#/Vol] 4.52 10*6/uL Normal 3.95-5.11 [facility] Comment on above: Performed By: #### C BC, PT, PTT, BMP #### [address] [address] Supply Chain Manager: Casey Marques MD #### ANICOT #### [facility] [address] [place] [address] Supply Chain Manager: Adolph Diaz MD RBC morphology finding Nom (Bld) ANISOCYTOSIS PRESENT Normal [facility] Comment on above: Performed By: #### C BC, PT, PTT, BMP #### [address] [address] Supply Chain Manager: Casey Marques MD #### ANICOT #### [facility] [address] [place] [address] Supply Chain Manager: Adolph Diaz MD WBC (Bld) [#/Vol] 10.7 10*3/uL Normal 3.5-11.3 [facility] Comment on above: Performed By: #### C BC, PT, PTT, BMP #### [address] [address] Supply Chain Manager: Casey Marques MD #### ANICOT #### [facility] [address] [place] [address] Supply Chain Manager: Adolph Diaz MD Auto Diff Performed NOT REPORTED Normal [facility] Comment on above: Performed By: #### C BC, PT, PTT, BMP #### [address] [address] Supply Chain Manager: Casey Marques MD #### ANICOT #### [facility] [address] [place] [address] Supply Chain Manager: Adolph Diaz MD Platelet Estimate NOT REPORTED Normal [facility] Comment on above: Performed By: #### C BC, PT, PTT, BMP #### [facility] [address] [place], [place] [id number] Supply Chain Manager: Casey Marques MD #### ANICOT #### [facility] [address] [place] [address] Supply Chain Manager: Adolph Diaz MD WBC Morphology NOT REPORTED Normal [facility] Comment on above: Performed By: #### C BC, PT, PTT, BMP #### [facility] [address] [place] [address] Supply Chain Manager: Casey Marques MD #### ANICOT #### [facility] [address] [place] [address] Supply Chain Manager: Adolph Diaz MD Surgical Pathologyon Surgical Pathology [...] with no areas of granularity or masses. Graduating Machine Operator sections 1cs. tm Microscopic Description Sections of gastric mucosa show increased lymphocytes and plasma cells in the lamina propria. There is no evidence of acute inflammation, intestinal metaplasia or dysplasia. There is no evidence of organisms suspicious for Helicobacter with the routine H&E stains. SURGICAL PATHOLOGY CONSULTATION Patient Name: SANDERS, JAZ Wright [facility] Rec: [id number] Path Number: [id number] [facility]ISTS [facility] ANATOMIC PATHOLOGY [facility]. [place], [place] [address] [place], [place] Basic Metabolic Panelon 04-19 Anion gap [Moles/Vol] 13 mmol/L 9 - 17 mmol/L [place], [place] Bun/Cre Ratio NOT REPORTED [place], [place] Calcium [Mass/Vol] 9.4 mg/dL 8.6 - 10. 4 mg/dL [place], [place] Chloride [Moles/Vol] 104 mmol/L 98 - 10 7 mmol/L [place] CO2 [Moles/Vol] 23 mmol/L 20 - 31 mmol/L [place] Creatinine [Mass/Vol] 0.73 mg/dL 0.5 - 0.9 mg/dL [place], [place] GFR >60 >60 mL/min [place], [place] GFR Non- >60 >60 mL/min [place] GFR/1.73 sq M predicted among non-blacks MDRD (S/P/Bld) [Vol rate/Area] NOT REPORTED [place], [place] GFR/1.73 sq M predicted among non-blacks MDRD (S/P/Bld) [Vol rate/Area] [place], [place] Comment on above: Average GFR for 20-2 9 years old: 116 mL/min/1.73sq m Chronic Kidney Disease: <60 mL/min/1.73sq m Kidney failure: <15 mL/min/1.73sq m eGFR calculated using average adult body mass. Additional eGFR calculator available at: http://www.Sokoos.Grid2Home/multiple_crcl_2012.htm Glucose [Mass/Vol] 98 mg/dL 70 - 99 mg/dL [place], [place] Potassium [Moles/Vol] 4.1 mmol/L 3.7 - 5.3 mmol/L [place] Sodium [Moles/Vol] 140 mmol/L 135 - 144 mmol/L [place], [place] Urea nitrogen [Mass/Vol] 6 mg/dL 6 - 20 mg/dL [facility], [place] Basic Metabolic Profon 05-07 (cont.) Normal [facility] Comment on above: Result Comment: Aver age GFR for 20-29 years old: 116 mL/min/1.73sq m Chronic Kidney Disease: <60 mL/min/1.73sq m Kidney failure: <15 mL/min/1.73sq m eGFR calculated using average adult body mass. Additional eGFR calculator available at: http://www.DailyObjects.com/multiple_crcl_2012.htm Performed By: #### C BC, BMP #### [address] [address] Supply Chain Manager: Casey Marques MD Anion gap [Moles/Vol] 13 mmol/L Normal 9-17 [facility] Comment on above: Performed By: #### C ABHAY, BMP #### [facility] [employer] [address] [place] [address] Supply Chain Manager: Casey Marques MD Calcium [Mass/Vol] 9.4 mg/dL Normal 8.6-10.4 [facility] Comment on above: Performed By: #### C BC, BMP #### [facility] [employer] [address] [place] [address] Supply Chain Manager: Casey Marques MD Chloride [Moles/Vol] 104 mmol/L Normal 98-107 [facility] Comment on above: Performed By: #### C BC, BMP #### [facility] [employer] [address] [place] [address] Supply Chain Manager: Casey Marques MD CO2 [Moles/Vol] 23 mmol/L Normal 20-31 [facility] Comment on above: Performed By: #### C BC, BMP #### [facility] [employer] [address] [place] [address] Supply Chain Manager: Casey Marques MD Creatinine [Mass/Vol] 0.73 mg/dL Normal 0.50-0.90 [facility] Comment on above: Performed By: #### C BC, BMP #### [facility] [address] [place] [address] Supply Chain Manager: Casey Marques MD GFR, Amer >60 Normal >60 [facility] Comment on above: Performed By: #### C BC, BMP #### [facility] [address] [place] [address] Supply Chain Manager: Casey Marques MD GFR,non Amer >60 Normal >60 [facility] Comment on above: Performed By: #### C BC, BMP #### [facility] [address] [place] [address] Supply Chain Manager: Casey Marques MD Glucose [Mass/Vol] 98 mg/dL Normal 70-99 [facility] Comment on above: Performed By: #### C BC, BMP #### [facility] [employer] [address] [place] [address] Supply Chain Manager: Casey Marques MD Potassium [Moles/Vol] 4.1 mmol/L Normal 3.7-5.3 [facility] Comment on above: Performed By: #### C BC, BMP #### [facility] [employer] [address] [place] [address] Supply Chain Manager: Casey Marques MD Sodium [Moles/Vol] 140 mmol/L Normal 135-144 [facility] Comment on above: Performed By: #### C BC, BMP #### [facility] [address] [place] [address] Supply Chain Manager: Casey Marques MD Urea nitrogen [Mass/Vol] 6 mg/dL Normal 6-20 [facility] Comment on above: Performed By: #### C BC, BMP #### [facility] [employer] [address] [place] [address] Supply Chain Manager: Casey Marques MD BUN/CRE Ratio NOT REPORTED Normal 01-05 [facility] Comment on above: Performed By: #### C BC, BMP #### [address] [address] Supply Chain Manager: Casey Marques MD Staging: NOT REPORTED Normal [facility] Comment on above: Performed By: #### C BC, BMP #### [facility] [employer] [address] [place] [address] Supply Chain Manager: Casey Marques MD CBCon 05-07-2020 Erythrocyte distribution width (RBC) [Ratio] 14.4 % Normal 11.8-14.4 [facility] Comment on above: Performed By: #### C BC, BMP #### [address] [address] Supply Chain Manager: Casey Marques MD Hematocrit (Bld) [Volume fraction] 40.4 % Normal 36.3-47.1 [facility] Comment on above: Performed By: #### C BC, BMP #### [address] [address] Supply Chain Manager: Casey Marques MD Hemoglobin (Bld) [Mass/Vol] 12.6 g/dL Normal 11.9-15.1 [facility] Comment on above: Performed By: #### C BC, BMP #### [facility] [employer] [address] [place] [address] Supply Chain Manager: Casey Marques MD MCH (RBC) [Entitic mass] 26.1 pg Normal 25.2-33.5 [facility] Comment on above: Performed By: #### C BC, BMP #### [facility] [employer] [address] [place] [address] Supply Chain Manager: Casey Marques MD MCHC (RBC) [Mass/Vol] 31.2 g/dL Normal 28.4-34.8 [facility] Comment on above: Performed By: #### C BC, BMP #### [facility] [address] [place] [address] Supply Chain Manager: Casey Marques MD MCV (RBC) [Entitic vol] 83.8 fL Normal 82.6-102.9 [facility] Comment on above: Performed By: #### C BC, BMP #### [facility] [employer] [address] [place] [address] Supply Chain Manager: Casey Marques MD NRBC Automated 0.0 per 100 WBC Normal 0.0 [facility] Comment on above: Performed By: #### C BC, BMP #### [facility] [employer] [address] [place] [address] Supply Chain Manager: Casey Marques MD Platelet mean volume (Bld) [Entitic vol] 8.7 fL Normal 8.1-13.5 [facility] Comment on above: Performed By: #### C BC, BMP #### [facility] [employer] [address] [place] [address] Supply Chain Manager: Casey Marques MD Platelets (Bld) [#/Vol] 289 10*3/uL Normal 138-453 [facility] Comment on above: Performed By: #### C BC, BMP #### [facility] [employer] [address] [place] [address] Supply Chain Manager: Casey Marques MD RBC (Bld) [#/Vol] 4.82 10*6/uL Normal 3.95-5.11 [facility] Comment on above: Performed By: #### C BC, BMP #### [facility] [employer] [address] [place] [address] Supply Chain Manager: Casey Marques MD WBC (Bld) [#/Vol] 13.7 10*3/uL High 3.5-11.3 [facility] Comment on above: Performed By: #### C BC, BMP #### [facility] [place] [address] Supply Chain Manager: Casey Marques MD Erythrocyte distribution width (RBC) [Ratio] 14.4 % 11.8 - 14.4 % [place] Hematocrit (Bld) [Volume fraction] 40.4 % 36.3 - 47.1 % [place] Hemoglobin (Bld) [Mass/Vol] 12.6 g/dL 11.9 - 15.1 g/dL [place], [place] Interpretation and review of laboratory results Abnormal [place] MCH (RBC) [Entitic mass] 26.1 pg 25.2 - 33.5 pg [place] MCHC (RBC) [Mass/Vol] 31.2 g/dL 28.4 - 34.8 g/dL [place] MCV (RBC) [Entitic vol] 83.8 fL 82.6 - 102.9 fL [place] Platelet mean volume (Bld) [Entitic vol] 8.7 fL 8.1 - 13.5 fL [place] Platelets (Bld) [#/Vol] 289 10*3/uL [place] RBC (Bld) [#/Vol] 4.82 10*6/uL 3.95 - 5.1 1 m/uL [place] WBC (Bld) [#/Vol] 0.0 10*3/uL 0.0 per 10 0 WBC [place] WBC (Bld) [#/Vol] 13.7 10*3/uL [place] ESOPHAGRAMon 05-07-2020 [place] ESOPHAGRAM EXAMINATION: [...] Petr Cullen MD 05/07/20 Final result Normal [facility] EXAMINATION: SINGLE CONTRAST ESOPHAGRAM 05/07/2020 HISTORY: [...] sleeve. No obstruction. No extravasation of contrast. [place], [place] Julius, Mhpn Incoming Radiant Results From [facility] - 05/07/2020 10:04 AM EST EXAMINATION: SINGLE [...] of contrast. IMPRESSION: No extravasation of contrast. [place] No extravasation of contrast. [place] POCT urine pregnancyon 05-07 Beta HCG ( test) Ql (U) Negative NEGATIVE [place], [place] Comment on above: Specimens with hCG [...] [Moles/Vol] 10 mmol/L 9 - 17 mmol/L [place] Bun/Cre Ratio NOT REPORTED [facility] [place] Calcium [Mass/Vol] 9.5 mg/dL 8.6 - 10. 4 mg/dL [place] Chloride [Moles/Vol] 103 mmol/L 98 - 10 7 mmol/L [place] CO2 [Moles/Vol] 19 mmol/L Low 20 - 31 mmol/L [place] Creatinine [Mass/Vol] 0.9 mg/dL 0.5 - 0.9 mg/dL [place] GFR >60 >60 mL/min [place], [place] GFR Non- >60 >60 mL/min [place] GFR/1.73 sq M predicted among non-blacks MDRD (S/P/Bld) [Vol rate/Area] NOT REPORTED [place] GFR/1.73 sq M predicted among non-blacks MDRD (S/P/Bld) [Vol rate/Area] [place], [place] Comment on above: Average GFR for 20-2 9 years old: 116 mL/min/1.73sq m Chronic Kidney Disease: <60 mL/min/1.73sq m Kidney failure: <15 mL/min/1.73sq m eGFR calculated using average adult body mass. Additional eGFR calculator available at: http://www.DailyObjects.com/multiple_crcl_2012.htm Glucose [Mass/Vol] 162 mg/dL High 70 - 99 mg/dL [place], [place] Interpretation and review of laboratory results Abnormal [place] Potassium [Moles/Vol] 3.9 mmol/L 3.7 - 5.3 mmol/L [place] Sodium [Moles/Vol] 132 mmol/L Low 135 - 144 mmol/L [place] Urea nitrogen [Mass/Vol] 10 mg/dL 6 - 20 mg/dL [place] Basic Metabolic Profon 05-06 (cont.) Normal [facility] Comment on above: Result Comment: Aver age GFR for 20-29 years old: 116 mL/min/1.73sq m Chronic Kidney Disease: <60 mL/min/1.73sq m Kidney failure: <15 mL/min/1.73sq m eGFR calculated using average adult body mass. Additional eGFR calculator available at: http://www.Sokoos.Grid2Home/multiple_crcl_2012.htm Performed By: #### C BC, BMP #### [address] [address] Supply Chain Manager: Casey Marques MD Anion gap [Moles/Vol] 10 mmol/L Normal 9-17 [facility] Comment on above: Performed By: #### C BC, BMP #### [facility] [employer] [address] [place] [address] Supply Chain Manager: Casey Marques MD Calcium [Mass/Vol] 9.5 mg/dL Normal 8.6-10.4 [facility] Comment on above: Performed By: #### C ABHAY, BMP #### [facility] [employer] [address] [place] [address] Supply Chain Manager: Casey Marques MD Chloride [Moles/Vol] 103 mmol/L Normal 98-107 [facility] Comment on above: Performed By: #### C BC, BMP #### [address] [address] Supply Chain Manager: Casey Marques MD CO2 [Moles/Vol] 19 mmol/L Low 20-31 [facility] Comment on above: Performed By: #### C BC, BMP #### [facility] [employer] [address] [place] [address] Supply Chain Manager: Casey Marques MD Creatinine [Mass/Vol] 0.90 mg/dL Normal 0.50-0.90 [facility] Comment on above: Performed By: #### C BC, BMP #### [facility] [employer] [address] [place] [address] Supply Chain Manager: Casey Marques MD GFR, Amer >60 Normal >60 [facility] Comment on above: Performed By: #### C BC, BMP #### [facility] [employer] [address] [place] [address] Supply Chain Manager: Casey Marques MD GFR,non Amer >60 Normal >60 [facility] Comment on above: Performed By: #### C BC, BMP #### [facility] [address] [place] [address] Supply Chain Manager: Casey Marques MD Glucose [Mass/Vol] 162 mg/dL High 70-99 [facility] Comment on above: Performed By: #### C BC, BMP #### [facility] [employer] [address] [place] [address] Supply Chain Manager: Casey Marques MD Potassium [Moles/Vol] 3.9 mmol/L Normal 3.7-5.3 [facility] Comment on above: Performed By: #### C BC, BMP #### [facility] [employer] [address] [place] [address] Supply Chain Manager: Casey Marques MD Sodium [Moles/Vol] 132 mmol/L Low 135-144 [facility] Comment on above: Performed By: #### C BC, BMP #### [facility] [employer] [address] [place] [address] Supply Chain Manager: Casey Marques MD Urea nitrogen [Mass/Vol] 10 mg/dL Normal 6-20 [facility] Comment on above: Performed By: #### C BC, BMP #### [facility] [address] [place] [address] Supply Chain Manager: Casey Marques MD BUN/CRE Ratio NOT REPORTED Normal 9-20 [facility] Comment on above: Performed By: #### C BC, BMP #### [facility] [employer] [address] [place] [address] Supply Chain Manager: Casey Marques MD Staging: NOT REPORTED Normal [facility] Comment on above: Performed By: #### C BC, BMP #### [address] [address] Supply Chain Manager: Casey Marques MD CBCon 05-06-2020 Erythrocyte distribution width (RBC) [Ratio] 14.6 % High 11.8-14.4 [facility] Comment on above: Performed By: #### C BC, BMP #### [address] [address] Supply Chain Manager: Casey Marques MD Hematocrit (Bld) [Volume fraction] 42.5 % Normal 36.3-47.1 [facility] Comment on above: Performed By: #### C BC, BMP #### [address] [address] Supply Chain Manager: Casey Marques MD Hemoglobin (Bld) [Mass/Vol] 12.8 g/dL Normal 11.9-15.1 [facility] Comment on above: Performed By: #### C BC, BMP #### [address] [address] Supply Chain Manager: Casey Marques MD MCH (RBC) [Entitic mass] 26.9 pg Normal 25.2-33.5 [facility] Comment on above: Performed By: #### C BC, BMP #### [address] [address] Supply Chain Manager: Casey Marques MD MCHC (RBC) [Mass/Vol] 30.1 g/dL Normal 28.4-34.8 [facility] Comment on above: Performed By: #### C BC, BMP #### [facility] [employer] [address] [place] [address] Supply Chain Manager: Casey Marques MD MCV (RBC) [Entitic vol] 89.3 fL Normal 82.6-102.9 [facility] Comment on above: Performed By: #### C BC, BMP #### [facility] [employer] [address] [place] [address] Supply Chain Manager: Casey Marques MD NRBC Automated 0.0 per 100 WBC Normal 0.0 [facility] Comment on above: Performed By: #### C BC, BMP #### [facility] [employer] [address] [place] [address] Supply Chain Manager: Casey Marques MD Platelet mean volume (Bld) [Entitic vol] 8.4 fL Normal 8.1-13.5 [facility] Comment on above: Performed By: #### C BC, BMP #### [facility] [employer] [address] [place] [address] Supply Chain Manager: Casey Marques MD Platelets (Bld) [#/Vol] 300 10*3/uL Normal 138-453 [facility] Comment on above: Performed By: #### C BC, BMP #### [facility] [employer] [address] [place] [address] Supply Chain Manager: Casey Marques MD RBC (Bld) [#/Vol] 4.76 10*6/uL Normal 3.95-5.11 [facility] Comment on above: Performed By: #### C BC, BMP #### [address] [address] Supply Chain Manager: Casey Marques MD WBC (Bld) [#/Vol] 14.3 10*3/uL High 3.5-11.3 [facility] Comment on above: Performed By: #### C BC, BMP #### [facility] [address] [place] [address] Supply Chain Manager: Casey Marques MD CBC without Diffon Erythrocyte distribution width (RBC) [Ratio] 14.6 % High 11.8 - 14.4 % [place] Hematocrit (Bld) [Volume fraction] 42.5 % 36.3 - 47.1 % [place] Hemoglobin (Bld) [Mass/Vol] 12.8 g/dL 11.9 - 15.1 g/dL [place] Interpretation and review of laboratory results Abnormal [place] MCH (RBC) [Entitic mass] 26.9 pg 25.2 - 33.5 pg [place] MCHC (RBC) [Mass/Vol] 30.1 g/dL 28.4 - 34.8 g/dL [place] MCV (RBC) [Entitic vol] 89.3 fL 82.6 - 102.9 fL [place] Platelet mean volume (Bld) [Entitic vol] 8.4 fL 8.1 - 13.5 fL [place] Platelets (Bld) [#/Vol] 300 10*3/uL [place] RBC (Bld) [#/Vol] 4.76 10*6/uL 3.95 - 5.1 1 m/uL [place] WBC (Bld) [#/Vol] 14.3 10*3/uL [place] WBC (Bld) [#/Vol] 0.0 10*3/uL 0.0 per 10 0 WBC [place] Surgical Pathologyon 021 Surgical Pathology (NOTE) [...] with no areas of granularity or masses. Graduating Machine Operator sections 1cs. tm Microscopic Description Sections of gastric mucosa show increased lymphocytes and plasma cells in the lamina propria. There is no evidence of acute inflammation, intestinal metaplasia or dysplasia. There is no evidence of organisms suspicious for Helicobacter with the routine BRI stains. SURGICAL PATHOLOGY CONSULTATION Patient Name: JAZ SANDERS [facility] Rec: [id number] Path Number: [id number] [facility] ANATOMIC PATHOLOGY [address] [place] [phone] [facility] Comment on above: Performed By: #### C BC, PT, PTT, BMP #### [address] [id number] Supply Chain Manager: Casey Marques MD #### ANICOT #### [facility] [address] [place] [address] Supply Chain Manager: Adolph Diaz MD [id number] 05-04-2020 SARS-CoV-2 [facility] Comment on above: Performed By: #### C OVID #### [address] [id number] Supply Chain Manager: Casey Marques MD SARS-CoV-2 Not Detected [facility] Comment on above: Result Comment: The specimen is NEGATIVE for SARS-CoV-2, the novel coronavirus associated with COVID-19. A negative result does not rule out COVID-19. Bernard SARS-CoV-2 for use on the Bernard [employer] is a real-time RT-PCR test intended [...] this assay. Fact sheet for Healthcare Providers: https://www.fda.gov/media/806141/download Fact sheet for Patients: https://www.fda.gov/media/360864/download METHODOLOGY: RT-PCR Performed By: #### C OVID #### [address] [address] Supply Chain Manager: Casey Marques MD SARS-CoV-2,Rapid [facility] Comment on above: Performed By: #### C OVID #### [address] [address] Supply Chain Manager: Casey Marques MD [id number] 05-03-2020 SARS-CoV-2 Source .NASOPHARYNGEAL SWAB [facility] Comment on above: Performed By: #### C OVID #### [address] [address] Supply Chain Manager: Casey Marques MD Nicotineon 7 [id number] <2 [facility] Comment on above: Performed By: #### C BC, PT, PTT, BMP #### [address] [address] Supply Chain Manager: Casey Marques MD #### ANICOT #### [facility] [address] [place], [place] [id number] Supply Chain Manager: Adolph Diaz MD Cotinine <2 [facility] Comment on above: Performed By: #### C BC, PT, PTT, BMP #### [address] [address] Supply Chain Manager: Casey Marques MD #### ANICOT #### [facility] [address] [place], [place] [id number] Supply Chain Manager: Adolph Diaz MD Nicotine <2 [facility] Comment on above: Result Comment: (NOT E) [...] positive. Test developed and characteristics determined by [employer]. See Compliance Statement B: [email or web address] Performed By: [employer] [address] [place] [address] Digital Associate: Lynn Layne MD Performed By: #### C BC, PT, PTT, BMP #### [employer] [facility] [place] [address] Supply Chain Manager: Casey Marques MD #### ANICOT #### [employer] [facility] [address] [place] [address] Supply Chain Manager: Adolph Diaz MD Nicotine, Bloodon 04-26-2020 3-UC-Eywopapw <2 ng/mL [facility] [place], [place] Cotinine <2 ng/mL [facility], [place] Nicotine <2 ng/mL [facility], [place] Comment on above: (NOTE) Consistent with abstinence [...] positive. Test developed and characteristics determined by [employer]. See Compliance Statement B: [email or web address] Performed By: [employer] [address] [place] [address] Digital Associate: Lynn Layne MD EKG 12 Leadon 04-23-2020 Atrial Rate 95 BPM [place], [place] P [place] 14 degrees [place] P-R Interval 134 ms [place] Q-T Interval 398 ms [place] QRS Duration 94 ms [place] QTc Calculation (Bazett) 500 ms [place], [place] R [place] 15 degrees [facility], [place] T [place] 32 degrees [place], [place] Ventricular Rate 95 BPM [place] Normal sinus rhythm with sinus arrhythmia Prolonged QT Abnormal ECG No previous ECGs available [place], [place] Julius, Mhpn Incoming E kg Results From [facility] [place] - 04/23/2020 12:32 PM EST Normal sinus rhythm with sinus arrhythmia Prolonged QT Abnormal ECG No previous ECGs available [place] APTTon 04-22-2020 aPTT Coag (Bld) [Time] 22.2 s Normal 20.5-30.5 [facility] Comment on above: Result Comment: IV Heparin Therapy Range: 48.6-77.8 Performed By: #### C BC, PT, PTT, BMP #### [employer] [address] [place] [address] Supply Chain Manager: Casey Marques MD #### ANICOT #### [employer] [facility] [address] [place] [address] Supply Chain Manager: Adolph Diaz MD aPTT Coag (Bld) [Time] 22.2 s [place] Comment on above: IV Heparin Therapy Range: 48.6-77.8 Basic Metabolic Panelon Anion gap [Moles/Vol] 12 mmol/L 9 - 17 mmol/L [place] Bun/Cre Ratio NOT REPORTED [facility] [place] Calcium [Mass/Vol] 9.2 mg/dL 8.6 - 10. 4 mg/dL [place] Chloride [Moles/Vol] 104 mmol/L 98 - 10 7 mmol/L [place] CO2 [Moles/Vol] 23 mmol/L 20 - 31 mmol/L [place] Creatinine [Mass/Vol] 0.69 mg/dL 0.5 - 0.9 mg/dL [place] GFR >60 >60 mL/min [place], [place] GFR Non- >60 >60 mL/min [place] GFR/1.73 sq M predicted among non-blacks MDRD (S/P/Bld) [Vol rate/Area] NOT REPORTED [place] GFR/1.73 sq M predicted among non-blacks MDRD (S/P/Bld) [Vol rate/Area] [place], [place] Comment on above: Average GFR for 20-2 9 years old: 116 mL/min/1.73sq m Chronic Kidney Disease: <60 mL/min/1.73sq m Kidney failure: <15 mL/min/1.73sq m eGFR calculated using average adult body mass. Additional eGFR calculator available at: http://www.DailyObjects.com/multiple_crcl_2011.htm Glucose [Mass/Vol] 123 mg/dL High 70 - 99 mg/dL [place] Interpretation and review of laboratory results Abnormal [place] Potassium [Moles/Vol] 4.1 mmol/L 3.7 - 5.3 mmol/L [place] Sodium [Moles/Vol] 139 mmol/L 135 - 144 mmol/L [place] Urea nitrogen [Mass/Vol] 7 mg/dL 6 - 20 mg/dL [place] Basic Metabolic Profon 04-22 (cont.) Normal [facility] Comment on above: Result Comment: Aver age GFR for 20-29 years old: 116 mL/min/1.73sq m Chronic Kidney Disease: <60 mL/min/1.73sq m Kidney failure: <15 mL/min/1.73sq m eGFR calculated using average adult body mass. Additional eGFR calculator available at: http://www.Sokoos.Grid2Home/multiple_crcl_2012.htm Performed By: #### C BC, PT, PTT, BMP #### [address] [address] Supply Chain Manager: Casey Marques MD #### ANICOT #### [address] [id number] Supply Chain Manager: Adolph Diaz MD Anion gap [Moles/Vol] 12 mmol/L Normal 9-17 [facility] Comment on above: Performed By: #### C BC, PT, PTT, BMP #### [address] [address] Supply Chain Manager: Casey Marques MD #### ANICOT #### [address] [id number] Supply Chain Manager: Adolph Diaz MD Calcium [Mass/Vol] 9.2 mg/dL Normal 8.6-10.4 [facility] Comment on above: Performed By: #### C BC, PT, PTT, BMP #### [address] [address] Supply Chain Manager: Casey Marques MD #### ANICOT #### [address] [phone] Supply Chain Manager: Adolph Diaz MD Chloride [Moles/Vol] 104 mmol/L Normal 98-107 [facility] Comment on above: Performed By: #### C BC, PT, PTT, BMP #### [address] [address] Supply Chain Manager: Casey Marques MD #### ANICOT #### [address] [id number] Supply Chain Manager: Adolph Diaz MD CO2 [Moles/Vol] 23 mmol/L Normal 20-31 [facility] Comment on above: Performed By: #### C BC, PT, PTT, BMP #### [address] [address] Supply Chain Manager: Casey Marques MD #### ANICOT #### [facility] [address] [place], [place] [id number] Supply Chain Manager: Adolph Diaz MD Creatinine [Mass/Vol] 0.69 mg/dL Normal 0.50-0.90 [facility] Comment on above: Performed By: #### C BC, PT, PTT, BMP #### [address] [phone] Supply Chain Manager: Casey Marques MD #### ANICOT #### [address] [phone] Supply Chain Manager: Adolph Diaz MD GFR, Amer >60 Normal >60 [facility] Comment on above: Performed By: #### C BC, PT, PTT, BMP #### [address] [address] Supply Chain Manager: Casey Marques MD #### ANICOT #### [facility] [address] [place], [place] [id number] Supply Chain Manager: Adolph Diaz MD GFR,non Amer >60 Normal >60 [facility] Comment on above: Performed By: #### C BC, PT, PTT, BMP #### [address] [address] Supply Chain Manager: Casey Marques MD #### ANICOT #### [facility] [address] [place] [address] Supply Chain Manager: Adolph Diaz MD Glucose [Mass/Vol] 123 mg/dL High 70-99 [facility] Comment on above: Performed By: #### C BC, PT, PTT, BMP #### [address] [address] Supply Chain Manager: Casey Marques MD #### ANICOT #### [facility] [address] [place], [place] [id number] Supply Chain Manager: Adolph Diaz MD Potassium [Moles/Vol] 4.1 mmol/L Normal 3.7-5.3 [facility] Comment on above: Performed By: #### C BC, PT, PTT, BMP #### [address] [phone] Supply Chain Manager: Casey Marques MD #### ANICOT #### [address] [id number] Supply Chain Manager: Adolph Diaz MD Sodium [Moles/Vol] 139 mmol/L Normal 135-144 [facility] Comment on above: Performed By: #### C BC, PT, PTT, BMP #### [address] [phone] Supply Chain Manager: Casey Marques MD #### ANICOT #### [facility] [address] [place], [place] [id number] Supply Chain Manager: Adolph Diaz MD Urea nitrogen [Mass/Vol] 7 mg/dL Normal 6-20 [facility] Comment on above: Performed By: #### C BC, PT, PTT, BMP #### [address] [address] Supply Chain Manager: Casey Marques MD #### ANICOT #### [facility] [address] [place], [place] [id number] Supply Chain Manager: Adolph Diaz MD BUN/CRE Ratio NOT REPORTED Normal 9-20 [facility] Comment on above: Performed By: #### C BC, PT, PTT, BMP #### [facility] [place] [address] Supply Chain Manager: Casey Marques MD #### ANICOT #### [facility] [address] [place] [address] Supply Chain Manager: Adolph Diaz MD Staging: NOT REPORTED Normal [facility] Comment on above: Performed By: #### C BC, PT, PTT, BMP #### [facility] [address] [place] [phone] Supply Chain Manager: Casey Marques MD #### ANICOT #### [facility] [address] [place], [place] [id number] Supply Chain Manager: Adolph Diaz MD CBC 04-22-2020 Erythrocyte distribution width (RBC) [Ratio] 14.6 % High 11.8-14.4 [facility] Comment on above: Performed By: #### C BC, PT, PTT, BMP #### [address] [address] Supply Chain Manager: Casey Marques MD #### ANICOT #### [facility] [address] [place] [address] Supply Chain Manager: Adolph Diaz MD Hematocrit (Bld) [Volume fraction] 40.8 % Normal 36.3-47.1 [facility] Comment on above: Performed By: #### C BC, PT, PTT, BMP #### [facility] [address] [place] [address] [phone] Supply Chain Manager: Casey Marques MD #### ANICOT #### [facility] [address] [place], [place] [id number] Supply Chain Manager: Adolph Diaz MD Hemoglobin (Bld) [Mass/Vol] 12.8 g/dL Normal 11.9-15.1 [facility] Comment on above: Performed By: #### C BC, PT, PTT, BMP #### [address] [phone] Supply Chain Manager: Casey Marques MD #### ANICOT #### [facility] [address] [place], [place] [id number] Supply Chain Manager: Adolph Diaz MD MCH (RBC) [Entitic mass] 26.5 pg Normal 25.2-33.5 [facility] Comment on above: Performed By: #### C BC, PT, PTT, BMP #### [address] [phone] Supply Chain Manager: Casey Marques MD #### ANICOT #### [facility] [address] [place] [address] [id number] Supply Chain Manager: Adolph Diaz MD MCHC (RBC) [Mass/Vol] 31.4 g/dL Normal 28.4-34.8 [facility] Comment on above: Performed By: #### C BC, PT, PTT, BMP #### [address] [phone] Supply Chain Manager: Casey Marques MD #### ANICOT #### [facility] [address] [place] [address] Supply Chain Manager: Adolph Diaz MD MCV (RBC) [Entitic vol] 84.5 fL Normal 82.6-102.9 [facility] Comment on above: Performed By: #### C BC, PT, PTT, BMP #### [address] [phone] Supply Chain Manager: Casey Marques MD #### ANICOT #### [facility] [address] [place], [place] [id number] Supply Chain Manager: Adolph Diaz MD NRBC Automated 0.0 per 100 WBC Normal 0.0 [facility] Comment on above: Performed By: #### C BC, PT, PTT, BMP #### [address] [address] Supply Chain Manager: Casey Marques MD #### ANICOT #### [facility] [address] [place] [address] Supply Chain Manager: Adolph Diaz MD Platelet mean volume (Bld) [Entitic vol] 8.7 fL Normal 8.1-13.5 [facility] Comment on above: Performed By: #### C BC, PT, PTT, BMP #### [address] [address] Supply Chain Manager: Casey Marques MD #### ANICOT #### [facility] [address] [place] [address] Supply Chain Manager: Adolph Diaz MD Platelets (Bld) [#/Vol] 298 10*3/uL Normal 138-453 [facility] Comment on above: Performed By: #### C BC, PT, PTT, BMP #### [address] [phone] Supply Chain Manager: Casey Marques MD #### ANICOT #### [facility] [address] [place] [address] Supply Chain Manager: Adolph Diaz MD RBC (Bld) [#/Vol] 4.83 10*6/uL Normal 3.95-5.11 [facility] Comment on above: Performed By: #### C BC, PT, PTT, BMP #### [address] [address] Supply Chain Manager: Casey Marques MD #### ANICOT #### [facility] [address] [place] [address] Supply Chain Manager: Adolph Diaz MD WBC (Bld) [#/Vol] 10.8 10*3/uL Normal 3.5-11.3 [facility] Comment on above: Performed By: #### C BC, PT, PTT, BMP #### [facility] [address] [place] [address] Supply Chain Manager: Casey Marques MD #### ANSAMMIET #### [facility] [address] [place] [address] Supply Chain Manager: Adolph Diaz MD Erythrocyte distribution width (RBC) [Ratio] 14.6 % High 11.8 - 14.4 % [place], [place] Hematocrit (Bld) [Volume fraction] 40.8 % 36.3 - 47.1 % [place] Hemoglobin (Bld) [Mass/Vol] 12.8 g/dL 11.9 - 15.1 g/dL [place] Interpretation and review of laboratory results Abnormal [place] MCH (RBC) [Entitic mass] 26.5 pg 25.2 - 33.5 pg [place] MCHC (RBC) [Mass/Vol] 31.4 g/dL 28.4 - 34.8 g/dL [place] MCV (RBC) [Entitic vol] 84.5 fL 82.6 - 102.9 fL [place] Platelet mean volume (Bld) [Entitic vol] 8.7 fL 8.1 - 13.5 fL [place] Platelets (Bld) [#/Vol] 298 10*3/uL [place] RBC (Bld) [#/Vol] 4.83 10*6/uL 3.95 - 5.1 1 m/uL [place] WBC (Bld) [#/Vol] 10.8 10*3/uL [place] WBC (Bld) [#/Vol] 0.0 10*3/uL 0.0 per 10 0 WBC [place] Otheron 04-22-2020 No acute cardiopulmonary findings [place], [place] EXAMINATION: TWO XRA Y VIEWS OF THE CHEST 04/22/2020 2:46 pm COMPARISON: Baseline examination HISTORY: ORDERING SYSTEM PROVIDED HISTORY: preop gastric bypass [employer] TECHNOLOGIST PROVIDED HISTORY: preop gastric bypass Ben En Y Reason for Exam: preop gastric bypass FINDINGS: Normal cardiopericardial silhouette There are no significant pleural, parenchymal, mediastinal or osseous findings [place], [place] Julius, [facility] Incoming Radiant Results From [facility] - 04/22/2020 3:28 PM EST EXAMINATION: TWO XRAY VIEWS OF THE CHEST 04/22/2020 2:46 pm COMPARISON: Baseline examination HISTORY: ORDERING SYSTEM PROVIDED HISTORY: preop gastric bypass Ben [employer] Y TECHNOLOGIST PROVIDED HISTORY: preop gastric bypass Ben En Y Reason for Exam: preop gastric bypass FINDINGS: Normal cardiopericardial silhouette There are no significant pleural, parenchymal, mediastinal or osseous findings IMPRESSION: No acute [facility]opulmonary findings [facility] INR Coag (PPP) [Relative time] 0.9 {INR} Normal [facility] Comment on above: Result Comment: Therapeutic Range: Moderate Anticoagulant Intensity: INR = 2.0-3.0 High Anticoagulant Intensity: INR = 2.5-3.5 Performed By: #### C BC, PT, PTT, BMP #### [employer] [address] [place] [id number] Supply Chain Manager: Casey Marques MD #### ANICOT #### [facility] [address] [place] [address] Supply Chain Manager: Adolph Diaz MD PT Coag (PPP) [Time] 9.3 s Normal 9.0-12.0 [facility] Comment on above: Performed By: #### C BC, PT, PTT, BMP #### [employer] [address] [place] [address] [id number] Supply Chain Manager: Casey Marques MD #### ANICOT #### [facility] [address] [place] [address] Supply Chain Manager: Adolph Diaz MD [employer] 04-22-2020 INR Coag (PPP) [Relative time] 0.9 {INR} [facility] Comment on above: Therapeutic Range: Moderate Anticoagulant Intensity: INR = 2.0-3.0 High Anticoagulant Intensity: INR = 2.5-3.5 PT Coag (PPP) [Time] 9.3 s Grace saunders [facility] NORMA BUTLER XR CHEST (2 VW)on [...] Roxanne Avitia MD 04/22/20 Final result Normal [facility] Vital Signs Date Time Vital Sign Value Performing Clinician Sonal lerma 12-19-2024 10:01-0400 Body mass index (BMI) [Ratio] 36.79 kg/m2 Jojo OGDEN Work Phone: [facility] 12-19-2024 10:01-0400 Body weight 119.66 kg Jojo OGDEN Work Phone: [facility] 12-19-2024 10:01-0400 Diastolic blood pressure 60 mm[Hg] Jojo OGDEN Work Phone: [facility] 12-19-2024 10:01-0400 Systolic blood pressure 118 mm[Hg] Jojo OGDEN Work Phone: [facility] 12-05-2024 12:46-0400 Body height 180.3 cm Latricia Lindquist MD Work Phone: [facility] 12-05-2024 12:46-0400 Body mass index (BMI) [Ratio] 35.84 kg/m2 Latricia Lindquist MD Work Phone: [facility] 12-05-2024 12:46-0400 Body weight 116.57 kg Latricia Lindquist MD Work Phone: [facility] 12-05-2024 12:46-0400 Diastolic blood pressure 62 mm[Hg] Latricia Lindquist MD Work Phone: [facility] 12-05-2024 12:46-0400 Heart rate 73 /min Latricia Lindquist MD Work Phone: [facility] 12-05-2024 12:46-0400 Systolic blood pressure 95 mm[Hg] Latricia Lindquist MD Work Phone: [facility] 12-02-2024 23:35-0400 Body height 180.34 cm Amanda Ford APRN Work Phone: [facility] 12-02-2024 23:35-0400 Body temperature 97.2 [degF] Amanda Ford APRN Work Phone: [facility] 12-02-2024 23:35-0400 Body weight 115.66 kg Amanda Ford APRN Work Phone: [facility] 12-02-2024 23:35-0400 Diastolic blood pressure 56 mm[Hg] Amanda Ford APRN Work Phone: [facility] 12-02-2024 23:35-0400 Heart rate 75 /min Amanda Ford APRN Work Phone: [facility] 12-02-2024 23:35-0400 Respiratory rate 16 /min Amanda Ford APRN Work Phone: [facility] 12-02-2024 23:35-0400 SaO2% (BldA) [Mass fraction] 97 % Amanda Ford APRN Work Phone: [facility] 12-02-2024 23:35-0400 Systolic blood pressure 119 mm[Hg] Amanda Ford APRN Work Phone: [facility] 11-20-2024 10:37-0400 Body weight 116.1216 kg Amanda Ford COMMERCIAL SALES CONSULTANT Work Phone: [facility] 11-20-2024 09:10-0400 Body mass index (BMI) [Ratio] 35.7 kg/m2 Les Juan DO Work Phone: [facility] 11-20-2024 09:10-0400 Body weight 116.12 kg Les Juan DO Work Phone: [facility] 11-20-2024 09:10-0400 Diastolic blood pressure 64 mm[Hg] Les Juan DO Work Phone: [facility] 11-20-2024 09:10-0400 Systolic blood pressure 114 mm[Hg] Les Juan DO Work Phone: [facility] 10-22-2024 11:28-0400 Body mass index (BMI) [Ratio] 31.24 kg/m2 Les Juan DO Work Phone: [facility] 10-22-2024 11:28-0400 Body weight 101.61 kg Les Juan DO Work Phone: [facility] 10-22-2024 11:28-0400 Diastolic blood pressure 62 mm[Hg] Les Juan DO Work Phone: [facility] 10-22-2024 11:28-0400 Systolic blood pressure 110 mm[Hg] Les Juan DO Work Phone: [facility] 10-18-2024 13:34-0400 Diastolic blood pressure 71 mm[Hg] Amanda Ford COMMERCIAL SALES CONSULTANT Work Phone: [facility] 10-18-2024 13:34-0400 Heart rate 60 /min Amanda Ford COMMERCIAL SALES CONSULTANT Work Phone: [facility] 10-18-2024 13:34-0400 Respiratory rate 18 /min Amanda Ford COMMERCIAL SALES CONSULTANT Work Phone: [facility] 10-18-2024 13:34-0400 SaO2% (BldA) [Mass fraction] 99 % Amanda Shethbilly COMMERCIAL SALES CONSULTANT Work Phone: [facility] 10-18-2024 13:34-0400 Systolic blood pressure 112 mm[Hg] Amanda Poncesudhakar COMMERCIAL SALES CONSULTANT Work Phone: [facility] 10-18-2024 10:38-0400 Body height 180.34 cm Amanda Poncesudhakar COMMERCIAL SALES CONSULTANT Work Phone: [facility] 10-18-2024 10:38-0400 Body temperature 98.1 [degF] Amanda Poncesudhakar COMMERCIAL SALES CONSULTANT Work Phone: [facility] 10-18-2024 10:38-0400 Body weight 106.85 kg Amanda Poncesudhakar COMMERCIAL SALES CONSULTANT Work Phone: [facility] 09-20-2024 15:06-0400 Body mass index (BMI) [Ratio] 31.24 kg/m2 [facility] Nurse [facility] 09-20-2024 15:06-0400 Body weight 101.61 kg [facility] Nurse [facility] 09-20-2024 15:06-0400 Diastolic blood pressure 74 mm[Hg] [facility] Nurse [facility] 09-20-2024 15:06-0400 Systolic blood pressure 122 mm[Hg] [facility] Nurse [facility] 08-22-2024 10:04-0400 Body height 180.3 cm Darleen Sinclair MD Work Phone: [facility] 08-22-2024 10:04-0400 Body mass index (BMI) [Ratio] 29.99 kg/m2 Darleen Sinclair MD Work Phone: [facility] 08-22-2024 10:04-0400 Body weight 97.52 kg Darleen Sinclair MD Work Phone: [facility] 08-22-2024 10:04-0400 Diastolic blood pressure 56 mm[Hg] Darleen Sinclair MD Work Phone: [facility] 08-22-2024 10:04-0400 Heart rate 67 /min Darleen Sinclair MD Work Phone: [facility] 08-22-2024 10:04-0400 Respiratory rate 16 /min Darleen Sinclair MD Work Phone: [facility] 08-22-2024 10:04-0400 SaO2% (BldA) [Mass fraction] 99 % Darleen Sinclair MD Work Phone: [facility] 08-22-2024 10:04-0400 Systolic blood pressure 124 mm[Hg] Darleen Sinclair MD Work Phone: [facility] 04-26-2024 08:32-0500 Body height 180.34 cm [facility] 04-26-2024 08:32-0500 Body mass index (BMI) [Ratio] 30.4 kg/m2 [facility] 04-26-2024 08:32-0500 Body temperature 97.3 [degF] [facility] 04-26-2024 08:32-0500 Body weight 98.99 kg [facility] 04-26-2024 08:32-0500 Diastolic blood pressure 60 mm[Hg] [facility] 04-26-2024 08:32-0500 Heart rate 73 /min [facility] 04-26-2024 08:32-0500 SaO2% (BldA) [Mass fraction] 98 % [facility] 04-26-2024 08:32-0500 Systolic blood pressure 112 mm[Hg] [facility] 02-28-2024 14:03-0500 Body height 180.3 cm Ignacio Guy MD Work Phone: [facility] 02-28-2024 14:03-0500 Body mass index (BMI) [Ratio] 30.23 kg/m2 Ignacio Guy MD Work Phone: [facility] 02-28-2024 14:03-0500 Body weight 98.3 kg Ignacio Guy MD Work Phone: [facility] 02-20-2024 15:12-0500 Body mass index (BMI) [Ratio] 31.71 kg/m2 Les Juan DO Work Phone: [facility] 02-20-2024 15:12-0500 Body weight 100.25 kg Les Juan DO Work Phone: [facility] 02-20-2024 15:12-0500 Diastolic blood pressure 68 mm[Hg] Les Juan DO Work Phone: [facility] 02-20-2024 15:12-0500 Systolic blood pressure 118 mm[Hg] Les Juan DO Work Phone: [facility] 12-07-2023 11:46-0400 Diastolic blood pressure 67 mm[Hg] MELY Ford Work Phone: [facility] 12-07-2023 11:46-0400 Heart rate 76 /min COMMERCIAL SALES CONSULTANTTanja Ford Work Phone: [facility] 12-07-2023 11:46-0400 Respiratory rate 16 /min COMMERCIAL SALES CONSULTANTTanja Ford Work Phone: [facility] 12-07-2023 11:46-0400 SaO2% (BldA) [Mass fraction] 99 % COMMERCIAL SALES CONSULTANTTanja Ford Work Phone: [facility] 12-07-2023 11:46-0400 Systolic blood pressure 149 mm[Hg] MELY Ford Work Phone: [facility] 12-07-2023 10:20-0400 Body temperature 98 [degF] COMMERCIAL SALES CONSULTANTTanja Ford Work Phone: [facility] 12-07-2023 09:55-0400 Inhaled oxygen flow rate 3 L/min MELY Ford Work Phone: [facility] 12-07-2023 06:29-0400 Body height 180.34 cm COMMERCIAL SALES CONSULTANTTanja Ford Work Phone: [facility] 12-07-2023 06:29-0400 Body weight 95.25 kg MELY Ford Work Phone: [facility] 11-01-2023 11:56-0400 Body height 180.34 cm MELY Ford Work Phone: [facility] 11-01-2023 11:56-0400 Body mass index (BMI) [Ratio] 28.8 kg/m2 MELY Ford Work Phone: [facility] 11-01-2023 11:56-0400 Body weight 93.89 kg MELY Ford Work Phone: [facility] 06-08-2023 14:56-0500 Body height 180.34 cm [facility] 06-08-2023 14:56-0500 Body mass index (BMI) [Ratio] 29.4 kg/m2 [facility] 06-08-2023 14:56-0500 Body weight 95.7 kg [facility] 06-08-2023 14:56-0500 Diastolic blood pressure 68 mm[Hg] [facility] 06-08-2023 14:56-0500 Heart rate 51 /min [facility] 06-08-2023 14:56-0500 SaO2% (BldA) [Mass fraction] 98 % [facility] 06-08-2023 14:56-0500 Systolic blood pressure 122 mm[Hg] [facility] 05-17-2023 14:30-0500 Body height 180.34 cm Romeo Santana Other [facility] 05-17-2023 14:30-0500 Body mass index (BMI) [Ratio] 27.47 kg/m2 Romeo Santana Other [facility] Other 05-17-2023 14:30-0500 Body weight 89.36 kg Romeo Santana Other [facility] Other 05-17-2023 14:30-0500 Body weight 89.35 kg [facility] 02-07-2023 14:30-0400 Body height 180.34 cm Petr Lay Other [facility] Other 02-07-2023 14:30-0400 Body mass index (BMI) [Ratio] 27.61 kg/m2 Petr Lay Other [facility] Other 02-07-2023 14:30-0400 Body temperature 98.1 [degF] Petr Lay Other [facility] Other 02-07-2023 14:30-0400 Body weight 89.81 kg Petr Lay Other [facility] Other 02-07-2023 14:30-0400 Diastolic blood pressure 76 mm[Hg] Petr Lay Other [facility] Other 02-07-2023 14:30-0400 SaO2% (BldA) [Mass fraction] 99 % Petr Lay Other [facility] Other 02-07-2023 14:30-0400 Systolic blood pressure 128 mm[Hg] Petr Lay Other [facility] Other 12-27-2022 11:30-0400 Body height 180.34 cm Petr Lay Other [facility] Other 12-27-2022 11:30-0400 Body mass index (BMI) [Ratio] 28.03 kg/m2 Petr Lay Other [facility] Other 12-27-2022 11:30-0400 Body weight 91.17 kg Petr Lay Other [facility] Other 12-27-2022 11:30-0400 Diastolic blood pressure 64 mm[Hg] Petr Lay Other [facility] Other 12-27-2022 11:30-0400 Respiratory rate 18 /min Petr Lay Other [facility] Other 12-27-2022 11:30-0400 SaO2% (BldA) [Mass fraction] 99 % Petr Lay Other [facility] Other 12-27-2022 11:30-0400 Systolic blood pressure 128 mm[Hg] Petr Lay Other [facility] Other 10-11-2022 13:30-0400 Body height 180.34 cm Petr Lay Other [facility] Other 10-11-2022 13:30-0400 Body mass index (BMI) [Ratio] 28.78 kg/m2 Petr Lay Other [facility] Other 10-11-2022 13:30-0400 Body weight 93.62 kg Petr Lay Other [facility] Other 10-11-2022 13:30-0400 Diastolic blood pressure 78 mm[Hg] Petr Lay Other [facility] Other 10-11-2022 13:30-0400 Respiratory rate 18 /min Petr Lay Other [facility] Other 10-11-2022 13:30-0400 SaO2% (BldA) [Mass fraction] 98 % Petr Alireza Other [facility] Other 10-11-2022 13:30-0400 Systolic blood pressure 122 mm[Hg] Petr Alireza Other [facility] Other 09-30-2022 08:00-0400 Body height 180.34 cm Amanda Ford Other [facility] Other 09-30-2022 08:00-0400 Body mass index (BMI) [Ratio] 28.03 kg/m2 Amanda Ford Other [facility] Other 09-30-2022 08:00-0400 Body weight 91.17 kg Amanda Ford Other [facility] Other 09-30-2022 08:00-0400 Diastolic blood pressure 84 mm[Hg] Amanda Ford Other [facility] Other 09-30-2022 08:00-0400 SaO2% (BldA) [Mass fraction] 95 % Amanda Ford Other [facility] Other 09-30-2022 08:00-0400 Systolic blood pressure 126 mm[Hg] Amanda Ford Other [facility] Other 08-25-2022 15:30-0400 Body height 180.34 cm Amanda Ford Other [facility] Other 08-25-2022 15:30-0400 Body mass index (BMI) [Ratio] 29.15 kg/m2 Amanda Shethbilly Other [facility] Other 08-25-2022 15:30-0400 Body weight 94.8 kg Amanda Hahnr Other [facility] Other 08-25-2022 15:30-0400 Diastolic blood pressure 77 mm[Hg] Amanda Logan Other [facility] Other 08-25-2022 15:30-0400 Systolic blood pressure 126 mm[Hg] Amanda Jovanir Other [facility] Other 08-20-2022 11:00-0400 Body height 180.34 cm Amanda Logan Other [facility] Other 08-20-2022 11:00-0400 Body mass index (BMI) [Ratio] 28.73 kg/m2 Amanda Logan Other [facility] Other 08-20-2022 11:00-0400 Body weight 93.44 kg Amanda Logan Other [facility] Other 08-20-2022 11:00-0400 Diastolic blood pressure 72 mm[Hg] Amanda Logan Other [facility] Other 08-20-2022 11:00-0400 SaO2% (BldA) [Mass fraction] 100 % Amanda Logan Other [facility] Other 08-20-2022 11:00-0400 Systolic blood pressure 118 mm[Hg] Amanda Poncesudhakar Other [facility] Other 06-11-2022 16:43-0500 Body temperature 98.1 [degF] MD Robin Appiah Work Phone: [facility] 06-11-2022 16:43-0500 Diastolic blood pressure 56 mm[Hg] MD Robin Appiah Work Phone: [facility] 06-11-2022 16:43-0500 Heart rate 60 /min MD Robin Appiah Work Phone: [facility] 06-11-2022 16:43-0500 Respiratory rate 16 /min MD Robin Appiah Work Phone: [facility] 06-11-2022 16:43-0500 SaO2% (BldA) [Mass fraction] 100 % MD Robin Appiah Work Phone: [facility] 06-11-2022 16:43-0500 Systolic blood pressure 102 mm[Hg] MD Robin Appiah Work Phone: [facility] 06-11-2022 09:40-0500 Body height 180.34 cm MD Robin Appiah Work Phone: [facility] 06-11-2022 05:42-0500 Body weight 93 kg MD Robin Appiah Work Phone: [facility] 06-10-2022 17:55-0500 Body temperature 98.1 [degF] MD Robin Appiah Work Phone: [facility] 06-10-2022 17:55-0500 Diastolic blood pressure 56 mm[Hg] MD Robin Appiah Work Phone: [facility] 06-10-2022 17:55-0500 Heart rate 62 /min MD Robin Appiah Work Phone: [facility] 06-10-2022 17:55-0500 Respiratory rate 18 /min MD Robin Appiah Work Phone: [facility] 06-10-2022 17:55-0500 SaO2% (BldA) [Mass fraction] 100 % MD Robin Appiah Work Phone: [facility] 06-10-2022 17:55-0500 Systolic blood pressure 122 mm[Hg] MD Robin Appiah Work Phone: [facility] 06-10-2022 14:22-0500 Body height 180.34 cm MD Robin Appiah Work Phone: [facility] 06-10-2022 14:22-0500 Body weight 92.7 kg MD Robin Appiah Work Phone: [facility] 04-21-2022 15:00-0500 Body height 180.34 cm Amanda Ford Other [facility] Other 04-21-2022 15:00-0500 Body mass index (BMI) [Ratio] 27.81 kg/m2 Amanda Ford Other [facility] Other 04-21-2022 15:00-0500 Body temperature 98.2 [degF] Amanda Ford Other [facility] Other 04-21-2022 15:00-0500 Body weight 90.45 kg Amanda Ford Other [facility] Other 04-21-2022 15:00-0500 Diastolic blood pressure 68 mm[Hg] Amanda Ford Other [facility] Other 04-21-2022 15:00-0500 Respiratory rate 18 /min Amanda Ford Other [facility] Other 04-21-2022 15:00-0500 SaO2% (BldA) [Mass fraction] 99 % Amanda Logan Other [facility] Other 04-21-2022 15:00-0500 Systolic blood pressure 111 mm[Hg] Amanda Logan Other [facility] Other 04-10-2022 21:41-0500 Diastolic blood pressure 56 mm[Hg] MD Robin Appiah Work Phone: [facility] 04-10-2022 21:41-0500 Systolic blood pressure 112 mm[Hg] MD Robin Appiah Work Phone: [facility] 04-10-2022 18:14-0500 Body height 180.34 cm MD Robin Appiah Work Phone: [facility] 04-10-2022 18:14-0500 Body temperature 98.1 [degF] MD Robin Appiah Work Phone: [facility] 04-10-2022 18:14-0500 Body weight 88 kg MD Robin Appiah Work Phone: [facility] 04-10-2022 18:14-0500 Heart rate 119 /min MD Robin Appiah Work Phone: [facility] 04-10-2022 18:14-0500 Respiratory rate 18 /min MD Robin Appiah Work Phone: [facility] 04-10-2022 18:14-0500 SaO2% (BldA) [Mass fraction] 100 % MD Robin Appiah Work Phone: [facility] 04-08-2022 17:15-0500 Body temperature 97.5 [degF] MD Robin Appiah Work Phone: [facility] 04-08-2022 17:15-0500 Diastolic blood pressure 59 mm[Hg] MD Robin Appiah Work Phone: [facility] 04-08-2022 17:15-0500 Heart rate 59 /min MD Robin Appiah Work Phone: [facility] 04-08-2022 17:15-0500 Respiratory rate 18 /min MD Robin Appiah Work Phone: [facility] 04-08-2022 17:15-0500 SaO2% (BldA) [Mass fraction] 100 % MD Robin Appiah Work Phone: [facility] 04-08-2022 17:15-0500 Systolic blood pressure 128 mm[Hg] MD Robin Appiah Work Phone: [facility] 04-08-2022 14:33-0500 Body height 180.34 cm MD Robin Appiah Work Phone: [facility] 04-08-2022 14:33-0500 Body weight 88.1 kg MD Robin Appiah Work Phone: [facility] 03-23-2022 15:30-0500 Body height 180.34 cm Amanda Ford Other [facility] Other 03-23-2022 15:30-0500 Body mass index (BMI) [Ratio] 27.05 kg/m2 Amanda Fodr Other [facility] Other 03-23-2022 15:30-0500 Body weight 88 kg Amanda Ford Other [facility] Other 03-23-2022 15:30-0500 Diastolic blood pressure 82 mm[Hg] Amanda Ford Other [facility] Other 03-23-2022 15:30-0500 SaO2% (BldA) [Mass fraction] 98 % Amanda Logan Other [facility] Other 03-23-2022 15:30-0500 Systolic blood pressure 137 mm[Hg] Amanda Logan Other [facility] Other 02-08-2022 10:00-0400 Body height 180.34 cm Amanda Logan Other [facility] Other 02-08-2022 10:00-0400 Body mass index (BMI) [Ratio] 27.47 kg/m2 Amanda Logan Other [facility] Other 02-08-2022 10:00-0400 Body weight 89.36 kg Amanda Logan Other [facility] Other 02-08-2022 10:00-0400 Diastolic blood pressure 62 mm[Hg] Amanda Ford Other [facility] Other 02-08-2022 10:00-0400 Systolic blood pressure 110 mm[Hg] Amanda Ford Other [facility] Other 09-01-2021 14:38-0400 Blood Pressure Location Samir Thompson [facility] 09-01-2021 14:38-0400 Diastolic blood pressure 61 mm[Hg] Samir [facility] 09-01-2021 14:38-0400 Heart rate 61 /min [facility]ir [facility] 09-01-2021 14:38-0400 Respiratory rate 18 /min Samir [facility] 09-01-2021 14:38-0400 SaO2% (BldA) [Mass fraction] 100 % Samir [facility] 09-01-2021 14:38-0400 Systolic blood pressure 103 mm[Hg] Samir [facility] 07-24-2021 14:39-0400 Blood Pressure Location Samir [facility] 07-24-2021 14:39-0400 Diastolic blood pressure 77 mm[Hg] Samir [facility] 07-24-2021 14:39-0400 Heart rate 65 /min [facility] 07-24-2021 14:39-0400 Respiratory rate 18 /min [facility] 07-24-2021 14:39-0400 SaO2% (BldA) [Mass fraction] 100 % Samir [facility] 07-24-2021 14:39-0400 Systolic blood pressure 115 mm[Hg] Samir [facility] 07-16-2021 11:00-0400 Body height 180.34 cm Amanda Ford Other [facility] Other 07-16-2021 11:00-0400 Body mass index (BMI) [Ratio] 29.15 kg/m2 Amanda Ford Other [facility] Other 07-16-2021 11:00-0400 Body weight 94.8 kg Amanda Ford Other [facility] Other 07-16-2021 11:00-0400 Diastolic blood pressure 64 mm[Hg] Amanda Logan Other [facility] Other 07-16-2021 11:00-0400 SaO2% (BldA) [Mass fraction] 98 % Amanda Logan Other [facility] Other 07-16-2021 11:00-0400 Systolic blood pressure 102 mm[Hg] Amanda Logan Other [facility] Other 05-08-2020 08:20-0500 Body Temperature 97.7 [degF] Rashard [facility], [place] 05-08-2020 08:20-0500 BP Diastolic 89 mm[Hg] [facility] [place] [place] 05-08-2020 08:20-0500 BP Systolic 156 mm[Hg] [facility] [place] [place] 05-08-2020 08:20-0500 Pulse (Heart Rate) 101 /min [place] 05-08-2020 08:20-0500 Pulse Oximetry 96 % [facility] [place] [place] 05-08-2020 08:20-0500 Respiratory Rate 19 /min [place] 05-06-2020 08:51-0500 BMI (Body Mass Index) 58.86 kg/m2 [facility] [place] 05-06-2020 08:51-0500 Body weight 191.42 [facility] [place] [place] 05-06-2020 08:51-0500 Height 180.3 cm [place] 04-22-2020 13:30-0500 BMI (Body Mass Index) 61.79 kg/m2 [address] 04-22-2020 13:30-0500 Body Temperature 97.11 [degF] [address], [place] 04-22-2020 13:30-0500 Body weight 200.[address] , [place] 04-22-2020 13:30-0500 BP Diastolic 90 mm[Hg] [facility] , [place] 04-22-2020 13:30-0500 BP Systolic 148 mm[Hg] [address] , [place] 04-22-2020 13:30-0500 Height 180.[address] , [place] 04-22-2020 13:30-0500 Pulse (Heart Rate) 104 /min [address], [place] 04-22-2020 13:30-0500 Pulse Oximetry 97 % [address] 04-22-2020 13:30-0500 Respiratory Rate 18 /min [address] Encounters Encounter Date Encounter Type Care Provider Facility Start: 01-09-2025 End: 01-09-2025 Clinisync Result Encounter Jojo OGDEN Work Phone: [facility] External Department Unsolicited Start: 01-09-2025 End: 01-09-2025 Clinisync Result Encounter Jojo OGDEN Work Phone: [facility] External Department Unsolicited Start: 01-04-2025 End: 01-04-2025 Orders Only Krystyna Dick RN Maternal- Medicine at [facility] Comment on above: Previous gastric byp ass affecting , antepartum (Primary Dx); Hypothyroidism affecting in second trimester; 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 ([facility]); Obesity affecting in second trimester, unspecified obesity type Start: 01-03-2025 End: 01-03-2025 ambulatory NO PCP NO PCP [facility] Start: 01-03-2025 End: 01-03-2025 Telephone encounter Roslyn Griffin RN Maternal Medicine [facility] Start: 12-19-2024 End: 12-19-2024 Bamboo flowsheet Jojo OGDEN Work Phone: [facility] Start: 12-19-2024 End: 12-19-2024 Bamboo flowsheet Jojo OGDEN Work Phone: [facility] Start: 12-19-2024 End: 12-19-2024 Office outpatient visit 15 minutes Jojo OGDEN Work Phone: [facility] Comment on above: 22 weeks gestation o f ([facility]); Second trimester ([facility]); Thyroid disease ; H/O gastric sleeve; H/O [...] Lindquist MD Work Phone: Maternal- Medicine at [facility] Comment on above: 20 weeks gestation o f (Primary Dx); Previous gastric bypass affecting , antepartum; Obesity affecting in second trimester, unspecified obesity type; Hypothyroidism affecting in second trimester; 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 ([facility]); headache in second trimester Start: 12-05-2024 End: 12-05-2024 Orders Only Chiquita Shen RN Maternal- Medicine at [facility] Comment on above: Previous gastric byp ass affecting , antepartum (Primary Dx); Hypothyroidism affecting in second trimester; 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 ([facility]); Obesity affecting in second trimester, unspecified obesity type; Encounter for supervision of resulting from assisted reproductive technology, antepartum Start: 12-04-2024 End: 12-04-2024 ambulatory LES JUAN Not Available Start: 12-02-2024 End: 12-03-2024 Patient encounter procedure Eduardo A Visci DO -[facility] - O/P Start: 12-02-2024 End: 12-03-2024 ambulatory Amanda Ford APRN Work Phone: [facility] Work Phone: Start: 12-02-2024 End: 12-03-2024 External Result Encounter Eduardo A Visci DO Work Phone: [facility] External Department Unsolicited Start: 12-02-2024 End: 12-03-2024 External Result Encounter Eduardo A Visci DO Work Phone: [facility] External Department Unsolicited Start: 12-01-2024 Non-patient / Non-visit ([place]) Elizabeth MCDERMOTT -[facility] Work Phone: Start: 11-30-2024 End: 11-30-2024 ambulatory Amanda Ford APRN Work Phone: [facility] Work Phone: Start: 11-30-2024 End: 11-30-2024 Departed Referred Chris Chapman DO -[facility] Start: 11-30-2024 Non-patient / Non-visit Chris Chapman DO -[place] [employer] [facility] Work Phone: Start: 11-20-2024 End: 11-20-2024 Bamboo flowsheet Les Juan DO Work Phone: [facility] Start: 11-20-2024 End: 11-21-2024 Bamboo flowsheet Les Juan DO Work Phone: [facility] Start: 11-20-2024 End: 11-20-2024 Clinisync Result Encounter Les Juan DO Work Phone: [facility] External Department Unsolicited Start: 11-20-2024 End: 11-21-2024 External Result Encounter Les Juan DO Work Phone: [facility] External Department Unsolicited Start: 11-20-2024 Non-patient / Non-visit [facility] Work Phone: Start: 11-20-2024 End: 11-20-2024 Patient encounter procedure Les Monsivaiso DO Work Phone: [facility] Start: 11-20-2024 End: 11-20-2024 Periodic preventive med est patient 18-39 yrs Les Monsivaiso DO Work Phone: [facility] Comment on above: Well woman exam with routine gynecological exam; Exposure to STD; Second trimester ([facility]); 18 weeks gestation of ([facility]); Need for maternal serum alpha-protein (MSAFP) screening ([facility]); Screening, , for anatomic survey ([facility]); Thyroid disease Start: 11-20-2024 End: 11-20-2024 ambulatory LES MONSIVAISO Not Available Start: 11-17-2024 Non-patient / Non-visit [facility] Work Phone: Start: 10-26-2024 End: 10-26-2024 Orders Only Not In System Ref Prov Maternal- Medicine at [facility] Start: 10-22-2024 End: 10-22-2024 Office outpatient visit 15 minutes Les Martinez DO Work Phone: [facility] Comment on above: 13 weeks gestation o f ([facility]); Second trimester ([facility]); Thyroid disease ; H/O gastric sleeve; H/O iron deficiency anemia; resulting from in vitro fertilization in first trimester ([facility]) Start: 10-22-2024 End: 10-22-2024 ambulatory LESEarl MONSIVAISO [...] Start: 09-26-2024 End: 09-26-2024 ambulatory Amanda Logan Facility:[facility] Start: 09-20-2024 End: 09-20-2024 Office outpatient visit 5 minutes [facility] Juan Nurse [facility] Comment on above: GA: 9w2d Start: 09-20-2024 End: 09-20-2024 ambulatory DARLEEN SINCLAIR Not Available Start: 09-03-2024 End: 09-03-2024 Nursing evaluation of patient and report Us [facility] Work Phone: [facility] Comment on above: Early stage of pregn paulo ([facility]) Start: 09-03-2024 End: 09-03-2024 ambulatory SHELLYMIRIAM HERNANDEZ Facility:[facility] Start: 08-28-2024 End: 08-28-2024 Nursing evaluation of patient and report [facility] Work Phone: [facility] Comment on above: resulting from assisted reproductive technology in first trimester ([facility]) Start: 08-28-2024 End: 08-28-2024 ambulatory SHELLY Yecenia ADVID Facility:[facility] Start: 08-24-2024 End: 08-24-2024 Telephone encounter Shelly Hernandez COMMERCIAL SALES CONSULTANT.BUSINESS PLANNING DIRECTOR Work Phone: [facility] Comment on above: Patient Question Start: 08-23-2024 End: 08-24-2024 Telephone encounter Shelly Hernandez COMMERCIAL SALES CONSULTANT.BUSINESS PLANNING DIRECTOR Work Phone: [facility] Comment on above: Pain Start: 08-22-2024 End: 08-22-2024 Bamboo flowsheet Darleen Sinclair MD Work Phone: [facility] Start: 08-22-2024 End: 08-22-2024 Bamboo flowsheet Darleen Sinclair MD Work Phone: [facility] Start: 08-22-2024 End: 08-22-2024 Office outpatient visit 25 minutes Darleen Sinclair MD Work Phone: [facility] Comment on above: Abnormal thyroid fun ction test (Primary Dx); H/O gastric bypass; 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CMS/HCC); Vitamin D deficiency Start: 08-22-2024 End: 08-22-2024 ambulatory DARLEEN SINCLAIR Not Available Start: 08-20-2024 End: 08-20-2024 Telemedicine consultation with patient Shelly G David COMMERCIAL SALES CONSULTANT.BUSINESS PLANNING DIRECTOR Work Phone: [facility] Start: 08-20-2024 End: 08-20-2024 ambulatory Shelly Hernandez COMMERCIAL SALES CONSULTANT.BUSINESS PLANNING DIRECTOR Work Phone: [facility] Comment on above: 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) (Primary Dx) Start: 08-18-2024 End: 08-23-2024 ambulatory Shelly Hernandez COMMERCIAL SALES CONSULTANT.BUSINESS PLANNING DIRECTOR Work Phone: [facility] Comment on above: Ultrasound Start: 08-17-2024 End: 08-17-2024 ambulatory Amanda Ford Facility:[facility] Start: 08-16-2024 End: 08-16-2024 Telephone encounter Shelly Hernandez COMMERCIAL SALES CONSULTANT.BUSINESS PLANNING DIRECTOR Work Phone: [facility] Comment on above: positive for pregnan cy Start: 08-15-2024 End: 08-15-2024 Telephone encounter Shelly Hernandez COMMERCIAL SALES CONSULTANT.BUSINESS PLANNING DIRECTOR Work Phone: [facility] Comment on above: Patient Question Start: 08-15-2024 End: 08-15-2024 ambulatory Shelly Hernandez Facility:[facility] Start: 08-13-2024 End: 08-13-2024 ambulatory Shelly Hernandez Facility:[facility] Start: 07-31-2024 End: 07-31-2024 ambulatory SELF Facility:[facility] Start: 07-31-2024 End: 07-31-2024 Patient encounter procedure Andrology Hall Coordinator Work Phone: [facility] Comment on above: Procreative manageme nt (Primary Dx) Start: 07-30-2024 End: 07-30-2024 Telephone encounter Shelly Hernandez APRN.BUSINESS PLANNING DIRECTOR Work Phone: [facility] Comment on above: Patient Question Start: 07-25-2024 End: 07-25-2024 ambulatory SELF Facility:[facility] Start: 07-07-2024 End: 07-07-2024 ambulatory MIKEY TORRES Facility:[facility] Start: 07-07-2024 End: 07-07-2024 Patient encounter procedure Andrology Hall Coordinator Work Phone: [facility] Comment on above: Procreative manageme nt (Primary Dx) Encounter for artifi cial insemination (Primary Dx) Start: 07-06-2024 End: 07-06-2024 Telephone encounter Shelly Hernandez APRN.BUSINESS PLANNING DIRECTOR Work Phone: [facility] Comment on above: Patient calling back /re iui 07/07 unsure Start: 07-05-2024 End: 07-06-2024 Telephone encounter Ignacio Guy MD Work Phone: [facility] Comment on above: re iui this wknd/has cervical polyp question Start: 07-04-2024 End: 07-04-2024 Telephone encounter Shelly Hernandez APRN.BUSINESS PLANNING DIRECTOR Work Phone: [facility] Comment on above: Treatment Planning Start: 07-04-2024 End: 07-11-2024 ambulatory Shelly Hernandez COMMERCIAL SALES CONSULTANT.BUSINESS PLANNING DIRECTOR Work Phone: [facility] Comment on above: Ovulating Start: 07-04-2024 End: 07-04-2024 Patient encounter procedure Us Tech 3 [facility] Work Phone: [facility] Start: 07-02-2024 End: 07-02-2024 ambulatory SHELLY HERNANDEZ Facility:[facility] Start: 06-29-2024 End: 06-29-2024 ambulatory SHELLY GONZALEZKEY Facility:[facility] Start: 06-23-2024 End: 06-29-2024 ambulatory Shelly Gonzalezkey COMMERCIAL SALES CONSULTANT.BUSINESS PLANNING DIRECTOR Work Phone: [facility] Comment on above: Negative t est and possible hematoma Start: 06-09-2024 End: 06-09-2024 ambulatory IGNACIO GUY Facility:[facility] Start: 06-09-2024 End: 06-09-2024 Patient encounter procedure Andrology Hall Coordinator Work Phone: [facility] Comment on above: Procreative manageme nt (Primary Dx) Female infertility ( Primary Dx) Start: 06-05-2024 End: 06-07-2024 ambulatory Shelly Hernandez COMMERCIAL SALES CONSULTANT.BUSINESS PLANNING DIRECTOR Work Phone: [facility] Start: 06-05-2024 End: 06-07-2024 Patient encounter procedure Shelly Hernandez APRN.BUSINESS PLANNING DIRECTOR Work Phone: [facility] Comment on above: IUI appointment Start: 05-22-2024 End: 05-23-2024 ambulatory Shelly G David COMMERCIAL SALES CONSULTANT.BUSINESS PLANNING DIRECTOR Work Phone: [facility] Comment on above: Progesterone results Start: 05-21-2024 End: 05-21-2024 ambulatory Shelly Hernandez Facility:[facility] Start: 05-18-2024 End: 05-18-2024 ambulatory SHELLYMIRIAM HERNANDEZ Facility:[facility] Start: 05-09-2024 End: 05-09-2024 ambulatory Shelly Gonzalezkey COMMERCIAL SALES CONSULTANT.BUSINESS PLANNING DIRECTOR Work Phone: [facility] Comment on above: Reproductive mgmt, 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) Start: 05-09-2024 End: 05-09-2024 Telemedicine consultation with patient Shelly Hernandez MELY.BUSINESS PLANNING DIRECTOR Work Phone: [facility] Start: 05-06-2024 End: 05-07-2024 ambulatory Shelly Hernandez APRN.BUSINESS PLANNING DIRECTOR Work Phone: [facility] Comment on above: Consent form Start: 05-02-2024 End: 05-02-2024 Telemedicine consultation with patient Saúl Enriquez PhD Work Phone: [facility] Comment on above: Bipolar 1 disorder ( Multi) (Primary Dx); Infertility counseling Start: 05-02-2024 End: 05-02-2024 ambulatory SAÚL Agustin [facility] Start: 04-26-2024 End: 04-26-2024 ambulatory [facility] Work Phone: Start: 04-26-2024 End: 04-26-2024 Patient encounter procedure [facility] Work Phone: Start: 04-24-2024 End: 04-24-2024 ambulatory SHELLY DAVID Facility:[facility] Start: 04-23-2024 End: 04-23-2024 ambulatory [facility] Work Phone: Start: 04-23-2024 End: 04-23-2024 Patient encounter procedure [facility] Work Phone: Start: 04-02-2024 End: 04-03-2024 ambulatory Shelly Yecenia David COMMERCIAL SALES CONSULTANT.BUSINESS PLANNING DIRECTOR Work Phone: [facility] Comment on above: Genetic testing Start: 03-09-2024 End: 03-09-2024 ambulatory Shelly G David COMMERCIAL SALES CONSULTANT.BUSINESS PLANNING DIRECTOR Work Phone: [facility] Comment on above: Reproductive mgmt, 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); Special screening examination for infectious diseases; Encounter for other genetic testing of female for procreative management Start: 03-09-2024 End: 03-09-2024 Telemedicine consultation with patient Shelly Hernandez MELY.BUSINESS PLANNING DIRECTOR Work Phone: [facility] Start: 02-29-2024 End: 02-29-2024 ambulatory SHELLY DAVID Facility:[facility] Start: 02-28-2024 End: 02-28-2024 ambulatory IGNACIO GUY Facility:[facility] Start: 02-28-2024 End: 02-28-2024 Patient encounter procedure Ignacio Attaran MD Work Phone: [facility] Comment on above: Encounter for male f actor 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 (Primary Dx) Start: 02-27-2024 End: 02-27-2024 ambulatory Amanda Ford APRN Work Phone: [facility] Work Phone: Start: 02-27-2024 End: 02-27-2024 Patient encounter procedure Amanda Ford APRN Work Phone: [facility] Work Phone: Start: 02-20-2024 Non-patient / Non-visit [facility] Work Phone: Start: 02-20-2024 [...] Department Unsolicited Start: 01-17-2024 End: 01-17-2024 ambulatory COMMERCIAL SALES CONSULTANT Amanda Ford Work Phone: [facility] Work Phone: Start: 01-17-2024 End: 01-17-2024 Patient encounter procedure COMMERCIAL SALES CONSULTANTTanja Patel Merylrbacher Work Phone: [facility] Work Phone: Start: 01-10-2024 Non-patient / Non-visit COMMERCIAL SALES CONSULTANTTanja Patel Merylrbacher Work Phone: [facility] Work Phone: Start: 12-20-2023 End: 12-20-2023 ambulatory COMMERCIAL SALES CONSULTANTTanja Patel Rosarioacher Work Phone: [facility] Work Phone: Start: 12-20-2023 End: 12-20-2023 Patient encounter procedure COMMERCIAL SALES CONSULTANTTanja Patel Merylrbacher Work Phone: [facility] Work Phone: Start: 12-09-2023 ambulatory Romeo Santana [facility] Start: 12-07-2023 Non-patient / Non-visit COMMERCIAL SALES CONSULTANTTanja Patel Rosarioacher Work Phone: [facility] Work Phone: Start: 12-07-2023 End: 12-07-2023 Admission to same day surgery center COMMERCIAL SALES CONSULTANT Amanda Rosarioacher Work Phone: [facility] [place] Start: 12-07-2023 End: 12-07-2023 ambulatory COMMERCIAL SALES CONSULTANT Amanda Rosarioacher Work Phone: [facility] Work Phone: Start: 12-01-2023 End: 12-01-2023 ambulatory COMMERCIAL SALES CONSULTANT Amanda Rosarioacher Work Phone: [facility] Work Phone: Start: 12-01-2023 End: 12-01-2023 Patient encounter procedure COMMERCIAL SALES CONSULTANT Amanda Rosarioacher Work Phone: [facility] Work Phone: Start: 11-28-2023 End: 11-28-2023 ambulatory COMMERCIAL SALES CONSULTANTTanja Patel Logan Work Phone: [facility] Work Phone: Start: 11-28-2023 End: 11-28-2023 Patient encounter procedure COMMERCIAL SALES CONSULTANT Amanda Rosariosudhakar Work Phone: [facility] Work Phone: Start: 11-02-2023 End: 11-02-2023 Emergency department patient visit Amanda Ford Facility:[facility] Start: 11-01-2023 End: 11-01-2023 ambulatory COMMERCIAL SALES CONSULTANTTanja Patel Logan Work Phone: [facility] Work Phone: Start: 11-01-2023 End: 11-01-2023 Patient encounter procedure COMMERCIAL SALES CONSULTANTTanja Ford Work Phone: [facility] Work Phone: Start: 10-26-2023 End: 10-26-2023 ambulatory COMMERCIAL SALES CONSULTANTTanja Patel Logan Work Phone: [facility] Work Phone: Start: 10-26-2023 End: 10-26-2023 Patient encounter procedure COMMERCIAL SALES CONSULTANT Amanda Logan Work Phone: [facility] Work Phone: Start: 10-13-2023 End: 10-13-2023 ambulatory [facility] Work Phone: Start: 10-13-2023 End: 10-13-2023 Patient encounter procedure [facility] Work Phone: Start: 09-15-2023 Non-patient / Non-visit [facility] Work Phone: Start: 06-08-2023 End: 06-08-2023 ambulatory [facility] Work Phone: Start: 06-08-2023 End: 06-08-2023 Patient encounter procedure [facility] Work Phone: Start: 05-17-2023 End: 05-17-2023 ambulatory Amanda Ford Other [employer] Other Start: 05-17-2023 Office outpatient visit 15 minutes Romeo Santana [facility] Start: 05-17-2023 Telephone encounter Amanda Janet her [facility] Start: 05-17-2023 End: 05-17-2023 Patient encounter procedure [facility]- Start: 04-28-2023 End: 04-28-2023 ambulatory Amanda Ford Other [employer] Other Start: 04-28-2023 Telephone encounter Amanda Janet her [facility] Start: 04-22-2023 End: 04-22-2023 ambulatory Amanda Ford Other [employer] Other Start: 04-22-2023 Telephone encounter Amanda Janet her [facility] Start: 04-19-2023 End: 04-19-2023 ambulatory Amanda Ford Other [employer] Other Start: 04-19-2023 Telephone encounter Amanda Janet her [facility] [address] Start: 04-14-2023 End: 04-14-2023 ambulatory Amanda Ford Other [employer] Other Start: 04-14-2023 Telephone encounter Amanda Janet her [facility] Start: 03-17-2023 End: 03-17-2023 ambulatory Romeo Santana Other [employer] Other Start: 03-17-2023 Telephone encounter Romeo Esther [facility] Start: 02-07-2023 End: 02-07-2023 ambulatory Amanda Merylrbacher Other [employer] Other Start: 02-07-2023 Office outpatient visit 15 minutes Petr Lay [facility] Start: 02-07-2023 Telephone encounter Amanda Shethfelecia her [facility] Start: 01-27-2023 End: 01-27-2023 ambulatory Amanda Merylrbacher Other [employer] Other Start: 01-27-2023 Telephone encounter Amanda Shethfelecia her [facility] Start: 01-19-2023 End: 01-19-2023 ambulatory Amanda Rohrbacher Other [employer] Other Start: 01-19-2023 Telephone encounter Amanda Shethfelecia her [facility] Start: 01-13-2023 End: 01-13-2023 ambulatory Amanda Rohrbacher Other [employer] Other Start: 01-13-2023 Telephone encounter Amanda Gonzales her [facility] Start: 01-10-2023 End: 01-10-2023 ambulatory Amanda Rohrbacher Other [employer] Other Start: 01-10-2023 Telephone encounter Amanda Gonzales her [facility] Start: 01-06-2023 End: 01-06-2023 ambulatory Amanda Rohrbacher Other [employer] Other Start: 01-06-2023 Telephone encounter Amanda Shethsarahac her [facility] Start: 12-27-2022 End: 12-27-2022 ambulatory Petr Lay Other [employer] Other Start: 12-27-2022 Office outpatient visit 15 minutes Petr Lay [facility] [place] Start: 11-10-2022 End: 11-10-2022 ambulatory Amanda Hahnr Other [employer] Other Start: 11-10-2022 Telephone encounter Amanda Shethfelecia her [facility] [place] Start: 10-21-2022 End: 10-21-2022 ambulatory Amanda Hahnr Other [employer] Other Start: 10-21-2022 Telephone encounter Amanda Shethfelecia her [facility] Start: 10-11-2022 End: 10-11-2022 ambulatory Petr Lay Other [employer] Other Start: 10-11-2022 Office consultation new/estab patient 40 min Petr Lay [facility] Start: 09-30-2022 End: 09-30-2022 ambulatory Amanda Rosarioacher Other [employer] Other Start: 09-30-2022 Office outpatient visit 15 minutes Amanda Ford [facility] Start: 08-25-2022 End: 08-25-2022 ambulatory Amanda Ponceacher Other [employer] Other Start: 08-25-2022 Office outpatient visit 15 minutes Amanda Ponceacher [facility] Start: 08-20-2022 End: 08-20-2022 ambulatory Amanda Shethrbacher Other [employer] Other Start: 08-20-2022 Office outpatient visit 15 minutes Amanda Logan [facility] Start: 07-19-2022 End: 07-19-2022 ambulatory Amanda Logan Other [employer] Other Start: 07-19-2022 Telephone encounter Amanda Gonzales her [facility] Start: 07-08-2022 End: 07-08-2022 ambulatory Amanda Shethbilly Other [employer] Other Start: 07-08-2022 Telephone encounter Amanda Gonzales her [facility] Start: 06-23-2022 End: 06-23-2022 ambulatory COMMERCIAL SALES CONSULTANTTanja Patel Logan Work Phone: [facility] Work Phone: Start: 06-23-2022 End: 06-23-2022 Patient encounter procedure COMMERCIAL SALES CONSULTANT Amanda Logan Work Phone: [facility] Work Phone: Start: 06-17-2022 End: 06-17-2022 ambulatory Amanda Shethbilly Other [employer] Other Start: 06-17-2022 Telephone encounter Amanda Shethsarahsari her [employer] Start: 06-16-2022 End: 06-16-2022 ambulatory COMMERCIAL SALES CONSULTANT Amanda Logan Work Phone: [facility] Work Phone: Start: 06-16-2022 End: 06-16-2022 Patient encounter procedure COMMERCIAL SALES CONSULTANT Amanda Logan Work Phone: [facility] Work Phone: Start: 06-10-2022 End: 06-11-2022 Evaluation and management of inpatient MD Robin Appiah Work Phone: [facility] Work Phone: Start: 06-10-2022 observation encounter MD Estrada Appiah Work Phone: [facility] Work Phone: Start: 06-09-2022 End: 06-09-2022 ambulatory MD Robin Appiah Work Phone: [facility] Work Phone: Start: 06-09-2022 End: 06-09-2022 Patient encounter procedure MD Robin Appiah Work Phone: [facility] Work Phone: Start: 04-26-2022 End: 04-26-2022 ambulatory Amanda Ford Other [employer] Other Start: 04-26-2022 Telephone encounter Amanda Janet her [facility] Start: 04-23-2022 End: 04-23-2022 ambulatory Amanda Ford Other [place] [employer] Other Start: 04-23-2022 Telephone encounter Amanda Janet her [facility] Start: 04-21-2022 End: 04-21-2022 Departed Referred MD Robin Appiah Work Phone: [facility] [place] Work Phone: Start: 04-21-2022 End: 04-21-2022 ambulatory MD Robin Appiah Work Phone: [facility] Work Phone: Start: 04-21-2022 Office outpatient visit 15 minutes Amanda Ford [facility] Start: 04-20-2022 End: 04-20-2022 ambulatory Amanda Ford Other [employer] Other Start: 04-20-2022 Telephone encounter Amanda Shethsarahsari her [facility] Start: 04-13-2022 End: 04-13-2022 ambulatory Amanda Logan Other [employer] Other Start: 04-13-2022 Telephone encounter Amanda Shethsarahsari her [employer] Start: 04-10-2022 End: 04-10-2022 Emergency department patient visit MD Robin Appiah Work Phone: [facility] Work Phone: Start: 04-08-2022 End: 04-08-2022 Emergency department patient visit MD Robin Appiah Work Phone: [facility] Work Phone: Start: 03-30-2022 End: 03-30-2022 ambulatory Amanda Ford Other [employer] Other Start: 03-30-2022 Telephone encounter Amanda Shethfelecia her [facility] Start: 03-23-2022 End: 03-23-2022 Patient encounter procedure MD Robin Appiah Work Phone: [facility] Start: 03-23-2022 End: 03-23-2022 ambulatory Amanda Ford Other [employer] Other Start: 03-23-2022 Office outpatient visit 15 minutes Amanda Ford [facility] Start: 03-17-2022 End: 03-17-2022 ambulatory Amanda Ford Other [employer] Other Start: 03-17-2022 Telephone encounter Amanda Shethfelecia her [facility] Start: 02-08-2022 End: 02-08-2022 ambulatory Amanda Ford Other [employer] Other Start: 02-08-2022 Office outpatient visit 25 minutes Amanda Ford [facility] Start: 09-01-2021 End: 09-01-2021 Patient encounter procedure Samir Thompson [facility] Start: 08-25-2021 End: 08-25-2021 Patient encounter procedure Samir Thompson [facility] Start: 08-06-2021 End: 08-06-2021 Patient encounter procedure Samir Thompson [facility] Start: 07-24-2021 End: 07-24-2021 Patient encounter procedure Samir Thompson [facility] Start: 07-23-2021 End: 07-23-2021 ambulatory Amanda Ford Other [employer] Other Start: 07-23-2021 Telephone encounter Amanda Gonzales her [employer] Start: 07-16-2021 End: 07-16-2021 ambulatory Amanda Ford Other [employer] Other Start: 07-16-2021 Office outpatient ne w 30 minutes Amanda Ford [facility] Start: 03-30-2021 End: 03-30-2021 Emergency department patient visit ROBIN APPIAH [facility] Start: 05-06-2020 End: 05-08-2020 ambulatory RASHARD OLIVERA [facility] Start: 05-06-2020 End: 05-08-2020 Subsequent hospital visit by physician Rashard Olivera Work Phone: [facility] Comment on above: Post-op pain (Primar y Dx) Start: 05-02-2020 End: 05-03-2020 Patient encounter procedure MACKENZIE BRITO [facility] Start: 05-02-2020 End: 05-02-2020 Subsequent hospital visit by physician Michael Covmay Screening Schedule MICHAEL Covid Screening Comment on above: Pre-op testing (Prim cj Dx) Start: 04-22-2020 End: 04-25-2020 ambulatory RASHARD Gilmore [facility] Start: 04-22-2020 End: 04-27-2020 ambulatory RASHARD Gilmore [facility] Start: 04-22-2020 End: 04-24-2020 Subsequent hospital visit by physician Lam C-Arm 2 [facility] Comment on above: Arrived Start: 04-22-2020 [...] Work Phone: Start: 12-15-2024 [facility] UA (CLEAN/CATCH) GENERAL INTERNIST/MICRO IF IND. Les Mosquedazio DO Work Phone: [...] 10-18-2024 Bacteria identificat ion test Amanda Logan COMMERCIAL SALES CONSULTANT Work Phone: Start: 10-18-2024 Determination of kendrick wth of fungi Amanda Logan COMMERCIAL SALES CONSULTANT Work Phone: Start: 10-18-2024 Trichomonas vaginali s detection Amanda Logan COMMERCIAL SALES CONSULTANT Work Phone: Start: 10-18-2024 Urine culture Amandarufino Ford COMMERCIAL SALES CONSULTANT Work Phone: Start: 10-18-2024 Diagnostic ultrasoun d of gravid uterus Amanda Logan COMMERCIAL SALES CONSULTANT Work Phone: Start: 10-16-2024 UNLISTED LAB TEST [...] after 1st trimest 04/18 gestation Shelly Hernandez COMMERCIAL SALES CONSULTANT.BUSINESS PLANNING DIRECTOR Work Phone: Start: 08-28-2024 Us preg uterus after 1st trimest 04/18 gestation Shelly Hernandez COMMERCIAL SALES CONSULTANT.BUSINESS PLANNING DIRECTOR Work Phone: Start: 07-04-2024 Us pelvic nonobstetr ic real-time image complete Ignacio Guy MD Work Phone: Start: 04-02-2024 Antibody screen SHELLY HERNANDEZ Comment on above: Order Comment: Speci men Type: BLOOD SPECIMEN Ordering Facility: [facility] Address: [address] [place] [address] Performed By: #### T SPN #### [facility] CLIA [id number] [place] [address] [place] Start: 02-20-2024 IGP,APTIMA HPV,AGE GDLN Les Martinez [...] Start: 05-06-2020 Blood count complete automated Rashard Olviera Work Phone: Start: 05-06-2020 End: 05-06-2020 GASTRECTOMY [...] RSV Vaccine (1 - 1-dose 75+ series) [facility] Start: 2045 Zoster Vaccines (1 of 2) Zoster Vaccines (1 of 2) [facility] Start: 12-25-2032 DTaP,Tdap and Td Vaccines (2 - Td or Tdap) DTaP,Tdap and Td Vaccines (2 - Td or Tdap) [facility] Start: 12-25-2032 DTaP/Tdap/Td Vaccines (2 - Td or Tdap) DTaP/Tdap/Td Vaccines (2 - Td or Tdap) [facility] Start: 12-25-2032 Urine microalbumin profile DTaP,Tdap,Td Vaccine (2 - Td or Tdap) [facility] Start: 02-19-2027 Screening for malignant neoplasm of cervix [facility] Start: 12-05-2025 Adult BMI Screening Adult BMI Screening [facility] Start: 12-05-2025 Tobacco Screening Tobacco Screening [facility] Start: 12-05-2025 End: 12-05-2025 US MFM with or without consult US MFM with or without consult Imaging Routine Previous gastric bypass affecting , antepartum Hypothyroidism affecting in second trimester 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 ([facility]) Obesity affecting in second trimester, unspecified obesity type Encounter for supervision of resulting from assisted reproductive technology, antepartum Expected: 12/05/2025 (Approximate), Expires: 12/05/2025 [employer] Work Phone: Comment on above: Expected: 12/05/2025 (Approximate), Expi res: 12/05/2025 Start: 08-21-2025 End: 08-21-2025 Patient encounter procedure [facility] Start: 02-20-2025 End: 02-20-2025 Patient encounter procedure [facility] Start: 02-07-2025 End: 02-07-2025 Patient encounter procedure 02/07/2025 9:45 AM EDT Appointment [facility] [address] [place] [phone] [facility] Start: 02-03-2025 End: 01-04-2026 US MFM with or without consult US MFM with or without consult Imaging Routine Previous gastric bypass affecting , antepartum Hypothyroidism affecting in second trimester 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 ([facility]) Obesity affecting in second trimester, unspecified obesity type Expected: 02/03/2025 (Approximate), Expires: 01/04/2026 [facility] Work Phone: Comment on above: Expected: 02/03/2025 (Approximate), Expi res: 01/04/2026 Start: 01-16-2025 End: 01-16-2025 Patient encounter procedure 01/16/2025 11:20 AM EDT Routine [facility]OM[facility] HERNANDE[facility] [address] [place] [phone] Mima Duenas, RUBBER TESTER [address] [place] [phone] [facility] [place] [facility] Start: 01-03-2025 End: 01-03-2025 Patient encounter procedure 01/03/2025 2:15 PM EDT Appointment [facility] [address] [place] [phone] [facility] Start: 12-19-2024 End: 12-19-2025 CBC panel - [...] mellitus screening Expected: 12/19/2024 (Approximate), [facility] Comment on above: Expected: 12/19/2024 (Approximate), Expi res: 12/19/2025 Start: 12-19-2024 End: 12-19-2024 Patient encounter procedure GUDEL[facility] HERNANDEZ Comment on above: Arrived Start: 12-17-2024 COVID-19 Vaccine () COVID-19 Vaccine () [facility] Start: 12-17-2024 Influenza vaccination [facility] Start: 12-05-2024 End: 12-05-2024 Patient encounter procedure [facility] Start: 12-04-2024 End: 12-04-2024 Professional / ancillary services management 12/04/2024 8:30 AM EDT Ancillary Procedure GUDELIA HERNANDEZ [address] [place] [address] [place] [phone] GUDELIA HERNANDEZ Start: 12-02-2024 Hospital admission [facility] Start: 12-02-2024 [facility] Start: 11-30-2024 Bacteria identified in Urine by Culture Urine Culture [facility] Start: 11-30-2024 End: 11-30-2024 Urine culture [facility] Start: 11-20-2024 End: 12-21-2024 Alpha fetoprotein, maternal Alpha fetoprotein, maternal Lab Routine Need for maternal serum alpha-protein (MSAFP) screening ([facility]) Expected: 11/20/2024 (Approximate), Expires: 12/21/2024 [facility] Comment on above: Expected: 11/20/2024 (Approximate), Expi res: 12/21/2024 Start: 11-20-2024 End: 02-20-2025 US for US OB 14+ weeks anatomy scan Imaging Routine Screening, , for anatomic survey ([facility]) Expected: 11/20/2024 (Approximate), Expires: 02/20/2025 [facility] Comment on above: Expected: 11/20/2024 (Approximate), Expi res: 02/20/2025 Start: 11-20-2024 End: 11-20-2024 Patient encounter procedure [facility] Comment on above: Arrived Start: 10-22-2024 End: 10-22-2024 Patient encounter procedure 10/22/2024 11:20 AM EDT Routine [facility] [address] [place] [address] Les Martinez DO [address] [address] [facility] Start: 10-18-2024 Bacteria identified in Urine by Culture Urine Culture [facility] Start: 10-18-2024 Genital Culture Genital Culture [facility] Start: 10-18-2024 Urine culture [facility] Start: 10-18-2024 [facility] Start: 09-20-2024 End: 09-20-2025 ABO/Rh ABO/Rh Lab Routine Missed menses , unspecified gestational age Expected: 09/20/2024 (Approximate), Expires: 09/20/2025 [facility] Healthcare Comment on above: Expected: 09/20/2024 (Approximate), Expi res: 09/20/2025 Start: 09-20-2024 End: 09-20-2025 Blood type and Indirect antibody screen panel - Blood Type and screen Lab Routine Missed menses , unspecified gestational age Expected: 09/20/2024 (Approximate), Expires: 09/20/2025 [facility] Work Phone: Comment on above: Expected: 09/20/2024 (Approximate), Expi res: 09/20/2025 Start: 09-20-2024 End: 09-20-2025 Drugs of abuse panel - Urine by Screen method Rapid drug screen, urine Lab Routine , unspecified gestational age Encounter for supervision of normal first in first trimester Expected: 09/20/2024 (Approximate), Expires: 09/20/2025 [facility] Healthcare Comment on above: Expected: 09/20/2024 (Approximate), Expi res: 09/20/2025 Start: 09-13-2024 End: 09-13-2024 ambulatory 09/13/2024 2:30 PM EDT Initial [facility] [address] [place] [phone] [facility] Start: 09-13-2024 End: 09-13-2024 Professional / ancillary services management 09/13/2024 2:00 PM EDT Ancillary Procedure [facility] [address] [place] [address] [facility] Start: 09-03-2024 End: 09-03-2024 [...] function test Expected: 08/22/2024 (Approximate), Expires: 08/22/2025 [facility] Comment on above: Expected: 08/22/2024 (Approximate), Expi res: 08/22/2025 Start: 08-22-2024 End: 08-22-2025 Thyroxine (T4) free [Mass/volume] in Serum or Plasma T4, free Lab Routine Abnormal thyroid function test Expected: 08/22/2024 (Approximate), Expires: 08/22/2025 [facility] Comment on above: Expected: 08/22/2024 (Approximate), Expi res: 08/22/2025 Start: 08-22-2024 End: 08-22-2025 Triiodothyronine (T3) Free [Mass/volume] in Serum or Plasma T3, free Lab Routine Abnormal thyroid function test Expected: 08/22/2024 (Approximate), Expires: 08/22/2025 [facility] Work Phone: Comment on above: Expected: 08/22/2024 (Approximate), Expi res: 08/22/2025 Start: 08-22-2024 End: 08-22-2024 Patient encounter procedure 08/22/2024 10:00 AM EDT Office Visit [facility] ENDO[facility] [address] [place] [phone] Darleen Sinclair MD [address] [place] [address] Arrived [facility] Comment on above: Arrived Start: 08-20-2024 End: 08-20-2025 OBSTETRIC ULTRASOUND [facility]I OBSTETRIC ULTRASOUND [facility]I Anc Imaging Routine 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) Expected: 08/20/2024, Expires: 08/20/2025 [facility] Work Phone: Comment on above: Expected: 08/20/2024, Expires: Start: 08-20-2024 End: 08-20-2024 ambulatory 08/20/2024 8:30 AM EDT [facility] Reproductive Endocrinology Infertility [address] [place] [address] Shelly Hernandez APRN.BUSINESS PLANNING DIRECTOR [address] [place] [address] preg appt [facility] Comment on above: preg appt Start: 07-07-2024 End: 07-07-2024 Patient encounter procedure [facility] Comment on above: donor thaw iui d Start: 05-09-2024 End: 05-09-2024 ambulatory 05/09/2024 8:00 AM [facility] Reproductive Endocrinology Infertility [address] [place] [address] Shelly Hernandez APRN.BUSINESS PLANNING DIRECTOR [address] [place] [address] donor sperm teach [facility]ocrinology [facility] Comment on above: donor sperm teach Start: 04-26-2024 Patient referral [facility] Work Phone: Start: 03-11-2024 End: 06-10-2024 25-hydroxyvitamin D3 [Mass/volume] in Serum or Plasma VITAMIN D 25 HYDROXY Lab Routine Reproductive mgmt, 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 Expected: 03/11/2024, Expires: 06/10/2024 [facility] Comment on above: Expected: 03/11/2024, Expires: Start: 03-11-2024 End: 06-10-2024 CARRIER SCREEN, EXPANDED CARRIER SCREEN, EXPANDED Lab Routine Encounter for other genetic testing of female for procreative management Expected: 03/11/2024, Expires: 06/10/2024 [facility] Comment on above: Expected: 03/11/2024, Expires: Start: 03-11-2024 End: 06-10-2024 Chlamydia trachomatis+Neisseria gonorrhoeae DNA [Presence] in Unspecified specimen by AC with probe detection GONORRHEA/CHLAMYDIA NAAT Lab Routine Special screening examination for infectious diseases Expected: 03/11/2024, Expires: 06/10/2024 [facility] Comment on above: Expected: 03/11/2024, Expires: Start: 03-11-2024 End: 06-10-2024 Cytomegalovirus IgG Ab [Units/volume] in Serum or Plasma CMV IGG ANTIBODY BL Lab Routine Special screening examination for infectious diseases Expected: 03/11/2024, Expires: 06/10/2024 [facility] Comment on above: Expected: 03/11/2024, Expires: Start: 03-11-2024 End: 06-10-2024 Cytomegalovirus IgM Ab [Units/volume] in Serum or Plasma CMV IGM AB Lab Routine Special screening examination for infectious diseases Expected: 03/11/2024, Expires: 06/10/2024 [facility] Comment on above: Expected: 03/11/2024, Expires: Start: 03-11-2024 End: 06-10-2024 Hemoglobin A1c in Blood HEMOGLOBIN A1C Lab Routine Reproductive mgmt, 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 Expected: 03/11/2024, Expires: 06/10/2024 [facility] Comment on above: Expected: 03/11/2024, Expires: Start: 03-11-2024 End: 06-10-2024 Hepatitis B virus core Ab [Presence] in Serum HEPATITIS B CORE ANTIBODY TOTAL Lab Routine Special screening examination for infectious diseases Expected: 03/11/2024, Expires: 06/10/2024 [facility] Comment on above: Expected: 03/11/2024, Expires: Start: 03-11-2024 End: 06-10-2024 Hepatitis B virus surface Ag [Presence] in Serum HEPATITIS B SURFACE ANTIGEN Lab Routine Special screening examination for infectious diseases Expected: 03/11/2024, Expires: 06/10/2024 [facility] [place] Comment on above: Expected: 03/11/2024, Expires: Start: 03-11-2024 End: 06-10-2024 Hepatitis C virus Ab [Presence] in Serum HEPATITIS C ANTIBODY IA WITH CONFIRMATION Lab Routine Special screening examination for infectious diseases Expected: 03/11/2024, Expires: 06/10/2024 [facility] [place] Comment on above: Expected: 03/11/2024, Expires: Start: 03-11-2024 End: 06-10-2024 HIV 1+2 Ab [Presence] in Serum or Plasma by Immunoassay HIV 1/2 COMBO WITH REFLEX TO DIFFERENTIATION Lab Routine Special screening examination for infectious diseases Expected: 03/11/2024, Expires: 06/10/2024 [facility] [place] Comment on above: Expected: 03/11/2024, Expires: Start: 03-11-2024 End: 06-10-2024 RUBELLA IGG ANTIBODY RUBELLA IGG ANTIBODY Lab Routine Special screening examination for infectious diseases Expected: 03/11/2024, Expires: 06/10/2024 [facility] [place] Comment on above: Expected: 03/11/2024, Expires: Start: 03-11-2024 End: 06-10-2024 SYPHILIS TREPONEMAL W/REFLEX SYPHILIS TREPONEMAL W/REFLEX Lab Routine Special screening examination for infectious diseases Expected: 03/11/2024, Expires: 06/10/2024 [facility] [place] Comment on above: Expected: 03/11/2024, Expires: Start: 03-11-2024 End: 06-10-2024 TYPE + SCREEN TYPE + SCREEN Blood Bank Routine Reproductive mgmt, 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 Expected: 03/11/2024, Expires: 06/10/2024 [facility] [place] Comment on above: Expected: 03/11/2024, Expires: Start: 03-11-2024 End: 06-10-2024 VARICELLA ZOSTER IGG VARICELLA ZOSTER IGG Lab Routine Special screening examination for infectious diseases Expected: 03/11/2024, Expires: 06/10/2024 [facility] Work Phone: Comment on above: Expected: 03/11/2024, Expires: Start: 03-09-2024 End: 03-09-2024 ambulatory 03/09/2024 10:00 AM [facility] [address] [place] [address] Shelly Hernandez APRN.BUSINESS PLANNING DIRECTOR [address] [place] [address] [facility] Comment on above: [employer] Start: 02-20-2024 End: 02-20-2024 Patient encounter procedure 02/20/2024 2:50 PM EST Office Visit [facility] [address] [place] [address] Les Martinez DO [address] [place] [address] Arrived [facility] Comment on above: Arrived Start: 12-18-2023 Covid-19 Vaccine () Covid-19 Vaccine () [facility] [place] Start: 12-18-2023 Covid-19 Vaccine () Covid-19 Vaccine () [facility] [place] Start: 12-18-2023 Influenza vaccination Influenza Vaccine (#1) [facility] Start: 12-07-2023 End: 12-07-2023 [facility] Start: 06-15-2022 [facility] Start: 06-14-2022 [facility] Start: 06-13-2022 [facility] Start: 06-12-2022 [facility] Start: 06-11-2022 End: 06-11-2022 [facility] Start: 06-10-2022 Hospital admission [facility] Start: 06-10-2022 [facility] Start: 06-10-2022 [facility] Start: 06-09-2022 [facility] Start: 04-21-2022 Bacteria identified in Urine by Culture Urine Culture [facility] Start: 04-10-2022 Bacteria identified in Urine by Culture Urine Culture [facility] Start: 05-16-2020 End: 05-16-2020 Office Visit 05/16/2020 Office Visit Bariatrics Rashard Olivera, [address] [place] [id number] Camille Linton Invasive Bariatric Surg Start: 05-06-2020 End: 05-06-2020 Hospital Encounter [facility] Comment on above: XI LAPAROSCOPIC ROBOTIC GASTRIC BYPASS R OUX-EN-Y, LIVER BIOPSY, EGD- GI UNIT SCHEDULED. Start: 05-02-2020 End: 05-01-2021 COVID-19 COVID-19 Lab Routine Pre-op testing Expected: 05/02/2020, Expires: 05/01/2021 [place], [place] Comment on above: Expected: 05/02/2020, Expires: 2 Start: 05-02-2020 End: 05-02-2020 Office Visit [facility] Invasive Bariatric Surg Start: 01-11-2020 TSH Qn TSH testing [place], [place] Start: 12-18-2019 Influenza vaccination Flu vaccine (#1) [place] Start: 2016 Screening for malignant neoplasm of cervix [facility] [place] Start: 2014 DTaP,Tdap and Td Vaccines (1 - Tdap) DTaP,Tdap and Td Vaccines (1 - Tdap) [facility] Start: 2014 DTaP/Tdap/Td vaccine (1 - Tdap) DTaP/Tdap/Td vaccine (1 - Tdap) [place] Start: 2014 Hepatitis B Vaccine (1 of 3 - 19+ 3-dose series) Hepatitis B Vaccine (1 of 3 - 19+ 3-dose series) [facility] [place] Start: 2014 Hepatitis B Vaccines (1 of 3 - 19+ 3-dose series) Hepatitis B Vaccines (1 of 3 - 19+ 3-dose series) [facility] Start: 2014 Urine microalbumin profile DTaP,Tdap,Td Vaccine (1 - Tdap) [facility] [place] Start: 2013 Adult BMI Follow Up Plan Adult BMI Follow Up Plan [facility] Start: 2013 Adult BMI Screening Adult BMI Screening [facility] Start: 2013 Anxiety Screening Anxiety Screening [facility] [place] Start: 2013 Depression Screening Depression Screening [facility] [place] Start: 2013 Hepatitis C screening Hepatitis C Screening [facility] [place] Start: 2013 HIV screening HIV Screening [facility] [place] Start: 2010 HIV screening HIV screen [place], [place] Start: 2008 Varicella vaccination Varicella Vaccines (1 of 2 - 13+ 2-dose series) [facility] Start: 2007 Depression Screening Depression Screening [facility] Start: 2007 Tobacco Screening Tobacco Screening [facility] Start: 2006 HPV vaccine (1 - 2-dose series) HPV vaccine (1 - 2-dose series) [place] Start: 1996 MMR Vaccines (1 of 1 - Standard series) MMR Vaccines (1 of 1 - Standard series) [facility] Start: 1996 Varicella vaccine (1 of 2 - 2-dose childhood series) Varicella vaccine (1 of 2 - 2-dose childhood series) [place] Start: 1995 Hepatitis C screening Hepatitis C screen [place], [place] Start: 1995 HIV screening HIV Screening [facility] Start: 1995 Lipid panel Lipid Panel [facility] Start: 1995 Yearly Adult Physical Yearly Adult Physical [facility] aPTT in Platelet poo r plasma by Coagulation assay [facility] Bacteria identified in Genital specimen by Aerobe culture [facility] Bacteria identified in Urine by Culture Urine culture Microbiology Routine Missed menses Ordered: 09/20/2024 [facility] Comment on above: Ordered: 09/20/2024 Calcitriol [Mass/vol ume] in Serum or Plasma [facility] CBC W Auto Different ial panel - Blood CBC and differential Lab Routine Missed menses , unspecified gestational age Ordered: 09/20/2024 [facility] Comment on above: Ordered: 09/20/2024 CHLAMYDIA TRACHOMATI S (GENITO/STI) CHLAMYDIA TRACHOMATIS (GENITO/STI) Lab Routine Exposure to STD Ordered: 11/20/2024 [facility] Comment on above: Ordered: 11/20/2024 Continuous pulse oximetry Pulse oximetry, continuous Respiratory Care Routine Every 4hr until discontinued starting 05/06/2020 [place], [place] Comment on above: Every 4hr until discontinued starting CT Abdomen and Pelvi s WO and W contrast IV [facility] Cytology Cervical or vaginal smear or scraping study Pap Smear Pathology and Cytology Routine Well woman exam with routine gynecological exam Ordered: 02/20/2024 [facility] Work Phone: Comment on above: Ordered: 02/20/2024 Electromyography [facility] F5 gene mutations fo und [Identifier] in Blood or Tissue by Molecular genetics method Nominal [facility] Factor VIII: C assay [facility] Glucose measurement estimated from glycated hemoglobin [facility] Hemoglobin A1c/Hemoglobin.total in Blood [facility] Hemoglobin A1c/Hemoglobin.total in Blood Hemoglobin A1c Lab Routine Missed menses , unspecified gestational age Ordered: 09/20/2024 [facility] Comment on above: Ordered: 09/20/2024 Hepatitis B virus priest rface Ag [Presence] in Serum or Plasma by Immunoassay Hepatitis B surface antigen Lab Routine Missed menses , unspecified gestational age Ordered: 09/20/2024 [facility] Comment on above: Ordered: 09/20/2024 Hepatitis C virus Ab [Presence] in Serum or Plasma by Immunoassay Hepatitis C antibody Lab Routine Missed menses , unspecified gestational age Ordered: 09/20/2024 [facility] Comment on above: Ordered: 09/20/2024 HIV-1/HIV-2 antigen/antibody combination immunoassay HIV-1 and HIV-2 antibodies Lab Routine Missed menses , unspecified gestational age Ordered: 09/20/2024 [facility] Comment on above: Ordered: 09/20/2024 INR in Platelet poor plasma by Coagulation assay [facility] Mullerian inhibiting substance [Mass/volume] in Serum or Plasma [facility] Nebulizer therapy HHN Treatment Respiratory Care Routine TID until discontinued [facility]06[facility] [employer] Comment on above: TID until discontinued starting 05/06/19 21 Neisseria gonorrhoea e DNA [Presence] in Unspecified specimen by AC with probe detection Neisseria gonorrhea DNA probe, direct Lab Routine Exposure to STD Ordered: 11/20/2024 [facility] Comment on above: Ordered: 11/20/2024 Oxygen therapy [Mini [facility]] Initiate Oxygen Therapy Protocol Respiratory Care Routine Daily until discontinued starting 05/06/2020 [facility] [employer] Comment on above: Daily until discontinued starting 2020 Patient Education [facility] Work Phone: Patient referral [facility] Work Phone: Reagin Ab [Presence] in Serum by RPR RPR Lab Routine Missed menses , unspecified gestational age Ordered: 09/20/2024 [facility] Comment on above: Ordered: 09/20/2024 Rubella antibody, IgG Rubella an tibody, IgG Lab Routine Missed menses , unspecified gestational age Ordered: 09/20/2024 [facility] Comment on above: Ordered: 09/20/2024 Spirometry panel Incentive marti metry Respiratory Care Routine Every 2hr while awake until discontinued starting 05/06/2020 [facility] [place] Comment on above: Every 2hr while awake until discontinued starting 05/06/2020 SURESWAB(R) ADVANCED VAGINITIS PLUS, TMA SURESWAB(R) ADVANCED VAGINITIS PLUS, TMA Pathology and Cytology Routine Exposure to STD Ordered: 11/20/2024 [facility] Work Phone: Comment on above: Ordered: 11/20/2024 Surgical Pathology Surgical Path ology Lab Routine Release Upon Ordering for 1 Occurrences starting 05/06[facility]2020 [facility] on above: Release Upon Ordering for 1 Occurrences starting 05/06/2020 End: 11-20-2025 Thyrotropin [Units/volume] in Serum or Plasma TSH Lab Routine Thyroid disease every 4 weeks for 6 Occurrences starting 11/20/2024 until 11/20/2025 [facility] Comment on above: every 4 weeks for 6 Occurrences starting 11/20/2024 until 11/20/2025 von Willebrand facto r (vWf) Ag [Units/volume] in Platelet poor plasma [facility] von Willebrand facto r (vWf) multimers in Platelet poor plasma by Immunoblot [facility] von Willebrand facto r (vWf) ristocetin cofactor actual/normal in Platelet poor plasma by Platelet aggregation [facility] Immunizations Immunization Date Immunization Notes Care Provider Fa cility 12-25-2022 tetanus toxoid, reduced diphtheria toxoid, and acellular pertussis vaccine, adsorbed Darleen Sinclair MD Work Phone: [facility] 08-19-2020 COVID-19 mRNA-1273 (Moderna) MELY Ford Work Phone: [facility] 07-22-2020 COVID-19 mRNA-1273 (Moderna) COMMERCIAL SALES CONSULTANT Amanda Logan Work Phone: [facility] Payers Date Payer Category Payer Self-pay [id number] 2022 Medicaid [id number] 2022 Medicaid [id number] 2020 Unknown [id number] 2015 Unknown [id number] [id number] .[id number] 1995 Unknown [id number] 2.16.840.1.134576.3.579.2.176 1995 Unknown [id number] 2.16.840.1.613928.3.579.2.175 1995 Unknown [id number] 2.16.840.1.906634.3.579.2.175 1995 Unknown [id number] 2.16.840.1.347325.3.579.2.175 1995 Unknown [id number] 2.16.840.1.336059.3.579.2.175 1995 Unknown [id number] 2.16.840.1.527767.3.579.2.124 4 1995 Unknown [id number] 2.16.840.1.592817.3.579.2.718 1995 Unknown [id number] 2.16.840.1.117909.3.579.2.718 1995 Unknown [id number] 2.16.840.1.655905.3.579.2.718 1995 Unknown [id number] 2.16.840.1.888338.3.579.2.718 1995 Unknown [id number] 2.16.840.1.100261.3.579.2.718 1995 Unknown [id number] 2.16.840.1.085049.3.579.2.718 1995 Unknown [id number] 2.16.840.1.197640.3.579.2.718 1995 Unknown [id number] 2.16.840.1.734297.3.579.2.128 6 1995 Unknown [id number] 2.16.840.1.162494.3.579.2.128 6 1995 Unknown [id number] 2.16.840.1.280995.3.579.2.125 9 1995 Unknown [id number] 2.16.840.1.002877.3.579.2.125 9 1995 Unknown [id number] 2.16.840.1.336464.3.579.2.125 9 1995 Unknown [id number] 2.16.840.1.495204.3.579.2.125 9 1995 Unknown [id number] 2.16.840.1.174439.3.579.2.125 9 1995 Unknown [id number] 2.16.840.1.231915.3.579.2.125 9 1995 Unknown [id number] 2.16.840.1.281330.3.579.2.125 9 1995 Unknown [id number] 2.16.840.1.422452.3.579.2.125 9 1995 Unknown [id number] 2.16.840.1.260917.3.579.2.128 6 Private Health Insurance [facility] [id number] Unknown [id number] 2.16.840.1.829879.19 Unknown [id number] 2.16.840.1.634199.3.579.2.531 Unknown [id number] 2.16.840.1.769648.3.579.2.531 Unknown [id number] 2.16.840.1.784706.3.579.2.531 Social History Date Type Detail Facility Start: 04-22-2020 End: 06-08-2023 Tobacco smoking status NHIS Never smoker [place], [place] Start: 04-22-2020 End: 11-28-2023 Tobacco use and exposure Never used [place] Start: 04-22-2020 End: 05-02-2020 Alcohol intake Current non-drinker of alcohol (finding) [place] Start: 1995 Sex Assigned At Not on file [place] Exposure to SARS-CoV-2 (event) Not sure [place] Tobacco smoking status Never [facility] Start: 11-28-2023 End: 02-20-2024 Sex Assigned At Female [employer] Other Start: 1995 Sex Assigned At Female [facility] Start: 06-10-2022 Tobacco smoking status CAIS Current some day smoker [facility] Start: 04-18-2023 End: 12-07-2023 Tobacco smoking status NHIS Smoker (finding) [facility] Start: 11-28-2023 End: 10-26-2024 Tobacco smoking status CAIS Smokes tobacco daily [facility] Start: 04-18-2023 History of tobacco use Cigarette Smoker [facility] Start: 11-28-2023 End: 02-20-2024 Cigarettes smoked current (pack per day) - Reported 0.5 [facility] Start: 11-28-2023 End: 12-19-2024 Alcoholic beverage intake Ex-drinker (finding) [facility] Start: 01-10-2023 Alcohol Comment caffeine: 1-2 cups per day tea [facility] Start: 01-19-2023 Gender identity Identifies as female gender (finding) [facility] Start: 11-21-2014 End: 02-27-2024 Sex Female (finding) [facility] Tobacco smoking status NHIS Tobacco smoking consumption unknown [facility] [place] Start: 08-01-2023 [facility] Start: 10-18-2024 End: 12-05-2024 Tobacco smoking status NHIS Ex-smoker (finding) [facility] NEGATED: Highlighted row [facility] Medical Equipment Procedure Code Equipment Code Equipment [...] FDA Start: 10-15-2019 Tendon/ligament bone anchor, non-bioabsorbable ()[id number] FDA Start: 12-07-2023 Tendon/ligament bone anchor, non-bioabsorbable ()[id number] FDA Start: 12-07-2023 Tendon/ligament bone anchor, non-bioabsorbable ()[id number] FDA Start: 12-07-2023 Tendon/ligament bone anchor, non-bioabsorbable ()[id number] FDA Start: 12-07-2023 Goals Date Patient Goal Desired Activity /State Personal health goal Functional Status Date Assessment Result Facility 06-11-2022 Functional status [facility] at [facility] Work Phone: 06-10-2022 Functional status Patient at [facility] Work Phone: Mental Status Date Assessment Result Facility 06-11-2022 Cognitive function Cognitive Sta tus Patient at [facility] Work Phone: 06-10-2022 Cognitive function Cognitive Sta tus Patient at [facility] Work Phone: Clinical Notes 03-31-2022 to 01-03-2025 [...] follow up ultrasound. documented in this encounter [facility] 01-03-2025 Telephone encounter Note Called patient to schedule her follow up survey in 4-6 weeks per appointment tracker. No answer left message to call back to schedule the follow up ultrasound. [facility] 12-19-2024 History of Present illness Narrative Reason [...] PLAN ICD-10-CM 1. 22 weeks gestation of ([facility]) Z3A.22 POCT urinalysis dipstick manually resulted 2. Second trimester ([facility]) Z34.92 POCT urinalysis dipstick manually [...] of: MELVI Engle documented in this encounter [facility] 12-05-2024 History of Present illness Narrative Images [...] follows with the behavioral health up in [place] History of migraines. Has been getting some [...] mouth in the morning., Disp: , Rfl: [id number] acid ( 19) 29 mg iron- 1 [...] Calcium: recommend 1000-1200mg daily; if deficient, recommend 4890-2852 mg PO daily in divided doses Vitamin [...] 5. 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 ([facility]) I reviewed with the patient that stability [...] sometimes have neonates with adaptation syndrome. The contractor general building should be made aware at the time [...] Latricia Lindquist MD, FACOG (she/hers) Maternal- Medicine [facility] [address] [place] [address] This document was created with [employer] technology. Though I make every effort to review the dictation as it is transcribed, on occasion the spoken word can be misinterpreted by the technology leading to inappropriate words, phrases, or sentences. This note is addressed to the requesting provider as a consultation for clinical guidance. Specific medical abbreviations are occasionally used and those are generally approved by the [place]?Board of?Obstetrics and?Gynecology?as well as?Marilee davila abbreviations. The above plan of care was based solely on the diagnoses for which a consultation was requested. ?More frequent testing may be indicated based on her other medical/obstetrical conditions. The management of other or medical conditions is beyond the scope of requested consultation and will continue to be followed by the primary surfacing technician or primary care provider. Note to patient: [...] CF Have you been seen here at [facility] in a previous ? NA Recent ER visits or hospitalizations? See notes above Bring blood sugar log or meter with you today? (Please bring them with you for every visit at [facility]) NA Flu vaccine (Feb-June)? NA Any concerns that you would like me to mention to the provider today? Questions about glucose testing and her having gastric bypass surgery documented in this encounter [facility] 11-20-2024 History of Present illness Narrative [...] nursing note reviewed. Exam conducted with a brim shaper present. Vitals: Estimated body mass index is [...] gonorrhea DNA probe, direct 3. Second trimester ([facility]) Z34.92 POCT urinalysis dipstick manually resulted 4. 18 weeks gestation of ([facility]) Z3A.18 5. Need for maternal serum alpha-protein (MSAFP) screening ([facility]) Z36.1 Alpha fetoprotein, maternal Alpha fetoprotein, maternal 6. Screening, , for anatomic survey ([facility]) Z36.89 US OB 14+ weeks [...] Les Martinez DO documented in this encounter [facility] 10-22-2024 History of Present illness Narrative Reason [...] nursing note reviewed. Exam conducted with a brim shaper present. Vitals: Estimated body mass index is 31.24 kg/m as calculated from the following: Height as of 08/22/24: 5' 11 . Weight as of this encounter: 224 lb. BP: 110/62 No LMP recorded. Patient is . ASSESSMENT & PLAN ICD-10-CM 1. 13 weeks gestation of ([facility]) Z3A.13 POCT urinalysis dipstick manually resulted 2. Second trimester ([facility]) Z34.92 POCT urinalysis dipstick manually resulted 3. Thyroid disease E07.9 4. H/O gastric sleeve Z90.3 5. H/O iron deficiency anemia Z86.2 6. resulting from in vitro fertilization in first trimester ([facility]) O09.811 Return OB: Patient presents [...] of gastric sleeve will make referral to [facility]. Documented by Mima Duenas NP on behalf of: Les Martinez DO documented in this encounter [facility] 10-18-2024 Radiology Diagnostic study note [facility] [place] [address] Ultrasound Report Signed Patient: Jaz Sanders MR#: [id number] : 1995 Acct:[id number] Age/Sex: 29 / F ADM Date: 5 Loc: ER Room: Type: [facility] ER Attending Dr: Ordering Provider: Kassidy [...] Jr., D.O. 10/18/2024 2:21 PM Dictation Location: [place] [address] Tech: Natalie Haji Transcribed By: MAITE 10/18/24 1421 Dictated By: Sravan Dickinson Jr, DO 10/18/24 1419 Signed By: 10/18/24 1421 [facility] 09-20-2024 History of Present illness Narrative Reason [...] screen, urine; Future Nurse Note: Patient declined [facility] at this time. Patient is an IVF from [facility] [place]. OB Intake: Patient presents today for first OB visit. Patients history has been reviewed in great detail including any potential risks. Patient signed consent forms and patient desires testing in both trimesters. Patient currently has no complaints and has been advised to drink 6-8 glasses of water a day, eat no raw or undercooked meat, and stay away from [facility]. Patient has also been advised to [...] Marsha Asif MA documented in this encounter [facility] 09-05-2024 Note HNO ID: [id number] Author: SHELLY HERNANDEZ APRN.CNP Service: ? Author [...] 3. Cycle Day: Last menstrual period: 07/19/2024 [place] Protocol: UNIVERSAL PROTOCOL / SAFETY CHECKLIST Procedure [...] September 05, 2024 TIME: 10:45 PM [facility] 09-03-2024 History of Present illness Narrative Jaz [...] 2024 5:39 PM documented in this encounter [facility] 09-03-2024 Note HNO ID: [id number] Author: CHARISSE WEAVER APRN.JARROD Service: ? Author [...] Plan Move on to OB Charisse Weaver APRN.BUSINESS PLANNING DIRECTOR September 03, 2024 5:39 PM [facility] 08-30-2024 Note HNO ID: [id number] Author: MIKEY TORRES MD Service: ? Author Type: Physician Type: Progress Notes Filed: 08/30/2024 16:36 Note Text: Viable ratliff IUP Size equal Date. Plan: patient to follow up with her ob for care. Stacy Banuelos MD [facility] 08-30-2024 History of Present illness Narrative Viable [...] Shelly Hernandez APRN.CNP documented in this encounter [facility] 08-28-2024 Note HNO ID: [id number] Author: SHELLY HERNANDEZ APRN.CNP Service: ? Author [...] week as scheduled Shelly Hernandez APRN.CNP [facility] 08-24-2024 Telephone encounter Note spoke [...] open slot. Call to patient needed: no [facility] 08-24-2024 Miscellaneous Notes spoke with Jaz, she [...] schedule the patient for the following- Location: [facility] Provider: nurse Visit type: scan Reason for visit/appointment notes: scan Date: 08/28 Time (requested): 1110 If slot is full, please schedule the closest open slot. Call to patient needed: no Name: Jaz Sanders called today. : 1995 (home) [phone] (cell) Reason for call: pt called today informing the nurse she has been experiencing pain of level 4 from 1-10. Pt has been experiencing pain for 2 day. 5 weeks today. The patients preferred pharmacy has been captured for this encounter? Angella Morillo Broom Builder documented in this encounter [facility] 08-24-2024 Telephone encounter Note See 08/23/24 LIBBY Ward RN August 24, 2024 1:58 PM [facility] 08-24-2024 Miscellaneous Notes See 08/23/24 LIBBY Ward RN August 24, 2024 1:58 PM Pt would like a call back documented in this encounter [facility] 08-24-2024 Telephone encounter Note Pt would like a call back [facility] 08-23-2024 Telephone encounter Note Name: Jaz Sanders called today. : 1995 (home) [phone] (cell) Reason for call: pt called today informing the nurse she has been experiencing pain of level 4 from 1-10. Pt has been experiencing pain for 2 day. 5 weeks today. The patients preferred pharmacy has been captured for this encounter? Angella Morillo Broom Builder [facility] 08-23-2024 Telephone encounter Note See 08/20 Distance health visit Marianna Ward RN August 23, 2024 8:53 AM [facility] 08-23-2024 Miscellaneous Notes See 08/20 Distance health visit Marianna Ward RN August 23, 2024 8:53 AM documented in this encounter [facility] 08-22-2024 History of Present illness Narrative Jaz Sanders is a 29 y.o. female Darleen Sinclair MD presents with chief complaint of Thyroid Problem and Follow-up (1.5 YRS ) HPI: History of Present Illness The patient is a 29-year-old female who presents for a follow-up visit. She was last seen in 03/2023. She continues her regimen of levothyroxine 50 mcg daily, administered in the hair preparer on an empty stomach. There have been [...] year (around 08/22/2025). documented in this encounter [facility] 08-20-2024 Note HNO ID: [id number] Author: SHELLY HERNANDEZ APRN.BUSINESS PLANNING DIRECTOR Service: ? Author Type: Nurse Practitioner Type: [...] Either the patient or their legal community health representative has been informed of the risks [...] providers Schedule with OB: 09/13 Shelly Hernandez APRN.BUSINESS PLANNING DIRECTOR August 20, 2024 8:33 AM Please schedule the patient for the following- Location: [place] Provider: nurse Visit type: Reason for visit/appointment notes: scan Date: 09/03 Time (requested): 1040 If slot is full, please schedule the closest open slot. Call to patient needed: no I spent a total of 30 minutes on the date of the service which included preparing to see the patient, ervv-sh-nryo patient care, completing clinical documentation, obtaining and/or [...] and typographical errors missed in proofreading. [facility] 08-20-2024 History of Present illness Narrative Images [...] Either the patient or their legal community health representative has been informed of the risks [...] from assisted reproductive technology in first trimester ([facility]) O09.811 [facility]IC [facility] Plan: further labwork needed: no scan scheduled: 09/03 medications to discontinue: patient to discuss status with her providers Schedule with OB: 09/13 Shelly Hernandez APRN.BUSINESS PLANNING DIRECTOR August 20, 2024 8:33 AM Please schedule the patient for the following- Location: [place] Provider: nurse Visit type: Reason for visit/appointment notes: scan Date: 09/03 Time (requested): 1040 If slot is full, please schedule the closest open slot. Call to patient needed: no I spent a total of 30 minutes on the date of the service which included preparing to see the patient, [id number]-[id number] patient care, completing clinical documentation, obtaining and/or [...] missed in proofreading. documented in this encounter [facility] 08-16-2024 Telephone encounter Note Called patient back to phone number listed in Work in Field-no answer. Lm for patient to look out for Mychart message. Daniel Hanna APRN.CNP August 16, 2024 5:15 PM [facility] 08-16-2024 Miscellaneous Notes Called patient back to phone number listed in Work in Field-no answer. Lm for patient to look out for Mychart message. Daniel Hanna APRN.CNP August 16, 2024 5:15 PM Name: Jaz Sanders called today. : 1995 (home) [phone] (cell) Reason for call: pt called that she got positive test, she has been having having cramping since last night , it happens every hours for couple minutes. The patients preferred pharmacy has been captured for this encounter? yes Angella Hernándezt documented in this encounter [facility] 08-16-2024 Telephone encounter Note Name: Jaz Sanders called today. : 1995 (home) [phone] (cell) Reason for call: pt called that she got positive test, she has been having having cramping since last night , it happens every hours for couple minutes. The patients preferred pharmacy has been captured for this encounter? yes Angella Morillo Broom Builder [facility] 08-15-2024 Telephone encounter Note Pt is preg and wants to know if she can take benadryl due to her having hives [facility] 08-15-2024 Miscellaneous Notes Pt is preg and wants to know if she can take benadryl due to her having hives documented in this encounter [facility] 07-31-2024 Note HNO ID: [id number] Author: DOMINGUEZ BARRY, ? Service: ? Author Type: Carbide Tool Maker Type: Progress Notes Filed: 09/05/2024 22:45 Note Text: IUI Cryobio Donor # [id number] Pre: frozen washed specimen Post: 82 M/ml, 67% Insem # 27.5 million [facility] 07-31-2024 Note HNO ID: [id number] Author: DOMINGUEZ BARRY, ? Service: ? Author Type: Carbide Tool Maker Type: Progress Notes Filed: 07/31/2024 15:26 Note Text: Thaw for IUI. Dominguez Barry [facility] 07-31-2024 History of Present illness Narrative Thaw for IUI. Dominguez Barry documented in this encounter [facility] 07-31-2024 Note HNO ID: [id number] Author: DOMINGUEZ BARRY, ? Service: ? Author Type: Carbide Tool Maker Type: Progress Notes Filed: 09/05/2024 22:45 Note Text: IUI specimen released to provider Dominguez Barry July 31, 2024 3:24 PM [facility] 07-31-2024 Note HNO ID: [id number] Author: MUSTAPHA TELLO MA Service: ? Author Type: Tight Barrel Inspector Type: Progress Notes Filed: 07/31/2024 15:12 Note Text: Patient verified by full name and date of . Jaz Sanders is here today for an IUI. LMP: 07/19/2024 Natural cycle IUI Timed With: Ovulation Predictor Kit , Date: 07/30/2024 Inclusion Paraeducator offered: Patient declines Mustapha Tello MA July 31, 2024 3:12 PM [facility] 07-30-2024 Telephone encounter Note patient's OPK today was dark but not positive Plan: test again tomorrow. 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, schedule IUI the same day Shelly Hernandez APRN.CNP July 30, 2024 6:00 PM [facility] 07-30-2024 Miscellaneous Notes patient's OPK today was dark but not positive Plan: test again tomorrow. 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, schedule IUI the same day Shelly Hernandez APRN.CNP July 30, 2024 6:00 PM N- ivf Pt has questions regarding IUI documented in this encounter [facility] 07-30-2024 Telephone encounter Note N- ivf Pt has questions regarding IUI [facility] 07-08-2024 Note HNO ID: [id number] Author: NICHELLE GONZALEZ, ? Service: ? Author Type: Carbide Tool Maker Type: Progress Notes Filed: 07/19/2024 07:50 Note Text: IUI Cryobio #[id number] Washed frozen specimen Post: 31 m/ml, 77% Insem#: 10.8 million [facility] 07-08-2024 History of Present illness Narrative IUI Cryobio #[id number] Washed frozen specimen Post: 31 m/ml, 77% Insem#: 10.8 million IUI specimen released to provider Nichelle Gonzalez July 07, 2024 10:10 AM documented in this encounter [facility] 07-07-2024 Note HNO ID: [id number] Author: NICHELLE GONZALEZ, ? Service: ? Author Type: Carbide Tool Maker Type: Progress Notes Filed: 07/19/2024 07:50 Note Text: IUI specimen released to provider Nichelle Gonzalez July 07, 2024 10:10 AM [facility] 07-07-2024 Note HNO ID: [id number] Author: MIKEY TORRES MD Service: ? Author [...] Cycle Day: 14 Last menstrual period: 06/24/2024 [place] Protocol: UNIVERSAL PROTOCOL / SAFETY CHECKLIST Procedure [...] surgeon/proceduralist with assistance. Stacy Banuelos MD [facility] 07-07-2024 Procedure note WHI JAMEL IUI PROCEDURE NOTE Date: 07/07/2024 Primary Proceduralist: Nakia Duran MD Consents and Labels Consent Signed: Informed Consent obtained and on the chart Labels Verified With Patient: Yes Indications: Jaz Sanders, is a 29 year old No obstetric history on file. female here today for intrauterine insemination. IUI # 2. Cycle Day: 14 Last menstrual period: 06/24/2024 [place] Protocol: UNIVERSAL PROTOCOL / SAFETY CHECKLIST Procedure [...] results. SIGNATURE: Nakia Duran MD PATIENT NAME: Jza Sanders DATE: July 07, 2024 TIME: 10:04 AM Fellow performed the procedure, without direct supervision but with primary surgeon/proceduralist readily available and the remainder of the procedure was performed by the primary surgeon/proceduralist with assistance. Stacy Banuelos MD [facility] 07-07-2024 Procedure note I JAMEL IUI PROCEDURE NOTE Date: 07/07/2024 Primary Proceduralist: Nakia Duran MD Consents and Labels Consent Signed: Informed Consent obtained and on the chart Labels Verified With Patient: Yes Indications: Jaz Sanders, is a 29 year old No obstetric history on file. female here today for intrauterine insemination. IUI # 2. Cycle Day: 14 Last menstrual period: 06/24/2024 [place] Protocol: UNIVERSAL PROTOCOL / SAFETY CHECKLIST Procedure [...] Stacy Banuelos MD documented in this encounter [facility] 07-07-2024 Note HNO ID: [id number] Author: NICHELLE GONZALEZ, ? Service: ? Author Type: Carbide Tool Maker Type: Progress Notes Filed: 07/07/2024 09:41 Note Text: Thaw for IUI Nichelle Gonzalez [facility] 07-07-2024 History of Present illness Narrative Thaw for IUI Nichelle Gonzalez documented in this encounter [facility] 07-06-2024 Telephone encounter Note Called the pt back. Pt had an US done 07/04/24--Possible small 4 mm intracervical canal polyp. No other abnormal findings. Advised to move on with IUI tomorrow. FYI: Dr. Guy and TY Vega. Please let me know if any different instructions. Becki Isaacs PA-C July 06, 2024 3:26 PM [facility] 07-06-2024 Miscellaneous Notes Called the pt back. [...] Please call patient. documented in this encounter [facility] 07-06-2024 Telephone encounter Note Patient states she is calling back unsure about if she is okay to proceed with iui tomorrow. Please call patient. [facility] 07-06-2024 Telephone encounter Note See other TE for 07/04 Marianna Ward RN July 06, 2024 11:17 AM [facility] 07-06-2024 Miscellaneous Notes See other TE for 07/04 Marianna Ward RN July 06, 2024 11:17 AM On day 11 now, inquiring about if okay to proceed with iui with cervical polyp. Patient believes it will be tomorrow or Tuesday for iui- inquiring if polyp needs to be removed first. documented in this encounter [facility] 07-05-2024 Telephone encounter Note On day 11 now, inquiring about if okay to proceed with iui with cervical polyp. Patient believes it will be tomorrow or Tuesday for iui- inquiring if polyp needs to be removed first. [facility] 07-04-2024 Telephone encounter Note Spoke with Jaz [...] Hernandez APRN.CNP July 04, 2024 7:30 PM [facility] 07-04-2024 Miscellaneous Notes Spoke with Jaz regarding [...] 2024 7:30 PM documented in this encounter [facility] 07-04-2024 Note HNO ID: [id number] Author: IGNACIO GUY MD Service: ? Author Type: Physician Type: Progress Notes Filed: 07/04/2024 16:27 Note Text: 1 [facility] 07-04-2024 History of Present illness Narrative 1 documented in this encounter [facility] 06-09-2024 Note HNO ID: [id number] Author: IGNACIO GUY MD Service: ? Author [...] Cycle Day: 13 Last menstrual period: 05/28/2024 [place] Protocol: UNIVERSAL PROTOCOL / SAFETY CHECKLIST Procedure [...] discussed with the patient or authorized community health representative. The patient or authorized community health representative has agreed to proceed with the sensitive examination. (Sensitive examination includes inspection and/or palpation of the breasts, pelvis, prostate and anorectal regions) Patient declined brim shaper. Vidhi Sheldon MD IUI IUI Date: 06/09/24 [...] June 09, 2024 TIME: 12:01 PM [facility] 06-09-2024 Procedure note WHI JAMEL IUI PROCEDURE NOTE Date: 06/09/2024 Primary Proceduralist: Vidhi Sheldon MD Consents and Labels Consent Signed: Informed Consent obtained and on the chart Labels Verified With Patient: Yes Indications: Jaz Sanders, is a 29 year old No obstetric history on file. female here today for intrauterine insemination. IUI # 1. Cycle Day: 13 Last menstrual period: 05/28/2024 [place] Protocol: UNIVERSAL PROTOCOL / SAFETY CHECKLIST Procedure [...] discussed with the patient or authorized community health representative. The patient or authorized community health representative has agreed to proceed with the sensitive examination. (Sensitive examination includes inspection and/or palpation of the breasts, pelvis, prostate and anorectal regions) Patient declined brim shaper. Vidhi Sheldon MD IUI IUI Date: 06/09/24 [...] DATE: June 09, 2024 TIME: 12:01 PM [facility] Work Phone: 06-09-2024 Procedure note WHI JAMEL IUI PROCEDURE NOTE Date: 06/09/2024 Primary Proceduralist: Vidhi Sheldon MD Consents and Labels Consent Signed: Informed Consent obtained and on the chart Labels Verified With Patient: Yes Indications: Jaz Sanders, is a 29 year old No obstetric history on file. female here today for intrauterine insemination. IUI # 1. Cycle Day: 13 Last menstrual period: 05/28/2024 [place] Protocol: UNIVERSAL PROTOCOL / SAFETY CHECKLIST Procedure [...] discussed with the patient or authorized community health representative. The patient or authorized community health representative has agreed to proceed with the sensitive examination. (Sensitive examination includes inspection and/or palpation of the breasts, pelvis, prostate and anorectal regions) Patient declined brim shaper. Vidhi Sheldon MD IUI IUI Date: 06/09/24 [...] TIME: 12:01 PM documented in this encounter [facility] 06-09-2024 Note HNO ID: [id number] Author: NICHELLE GONZALEZ, ? Service: ? Author Type: Carbide Tool Maker Type: Progress Notes Filed: 06/09/2024 12:30 Note Text: IUI Cryobio #: [id number] Washed frozen sample Post: 42 m/ml, 74% Insem#: 15.5 million [facility] 06-09-2024 History of Present illness Narrative IUI Cryobio #: [id number] Washed frozen sample Post: 42 m/ml, 74% Insem#: 15.5 million IUI specimen released to provider Nichelle Gonzalez June 09, 2024 11:24 AM documented in this encounter [facility] 06-09-2024 Note HNO ID: [id number] Author: NICHELLE GONZALEZ, ? Service: ? Author Type: Carbide Tool Maker Type: Progress Notes Filed: 06/09/2024 11:48 Note Text: Thaw for IUI Nichelle Gonzalez [facility] 06-09-2024 History of Present illness Narrative Thaw for IUI Nichelle Gonzalez documented in this encounter [facility] 06-09-2024 Note HNO ID: [id number] Author: NICHELLE GONZALEZ, ? Service: ? Author Type: Carbide Tool Maker Type: Progress Notes Filed: 06/09/2024 12:30 Note Text: IUI specimen released to provider Nichelle E Larrykimberly June 09, 2024 11:24 AM [facility] 05-09-2024 Instructions Shelly Hernandez APRN.JARROD - 05/09/2024 9:08 AM EST Images from the original note were not included. REPRODUCTIVE ENDOCRINOLOGY AND INFERTILITY DONOR SPERM HANDOUT Donor Sperm Checklist: Complete Next Steps: Progesterone blood test 6-8 days after your LH surge - please let me know the test result when you get it. IUI Procedure consent form - sent to you via SimpliVity today. Please sign when you can. Order sperm Financial Clearance - I sent your chart to the front end software developer today. Treatment plan: Natural cycle/IUI x 3 cycles. Please schedule a follow up visit with Dr. Guy if you are not after 3 cycles. Sperm Ordering Instructions We need 1 vial per cycle. You will likely need 3-6 vials to establish a . You are welcome to buy more than one and store with the [facility]. Mailing address: Attention: Nichelle Gonzalez [address] [place] [address], [address] [place] [address] Storage at the [facility] is available. Fees are yearly and only start once you are not actively trying. Please ask the financial team ([phone]) for current cost information. Donor Insemination Scheduling Instructions Please call during the first business day of your menstrual cycle to let the front end software developer know you will be testing and doing [...] the office to discuss. Location [facility] [id number] [place] [address], [place] [address] Available every day, including weekends and holidays (except [place] and New Years.) Weekday IUI scheduling The day you get your LH surge, please call [phone] between 8:00am - 12:00pm to schedule your insemination for the next day. If you call after 12pm, we may not be able to schedule your appointment. IUI s are done by appointment only. You will make 2 appointments -an arrival time and a procedure time. [address], [place] [address] Available every day, including weekends and holidays (except [place] and New Years.) Available for IUI using fresh and frozen samples. Check in location for sperm wash and IUI: [address] [facility]. The sperm wash takes 60-90 minutes. Weekend/Holiday [...] do another IUI: Call the front end software developer to make sure you are financially cleared. Ask to speak to an SKYLAR to confirm your treatment plan. Important phone number: [phone] documented in this encounter [facility] 05-09-2024 Note HNO ID: [id number] Author: SHELLY HERNANDEZ APRN.CNP Service: ? Author [...] Either the patient or their legal community health representative has been informed of the risks [...] negative donor is a carrier of: CFTR, [id number] Vial types available: IUI and ART Considerations [...] which included preparing to see the patient, rlor-nr-msdg patient care, completing clinical documentation, obtaining and/or [...] Standard se (more content not included)... [facility] 05-09-2024 History of Present illness Narrative Images [...] Either the patient or their legal community health representative has been informed of the risks [...] negative donor is a carrier of: CFTR, [id number] Vial types available: IUI and ART Considerations [...] which included preparing to see the patient, foxy-ui-axiq patient care, completing clinical documentation, obtaining and/or [...] missed in proofreading. documented in this encounter [facility] 05-02-2024 History of Present illness Narrative Psychosocial Consultation for Third Libertarian [...] and for 6.5 years. 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 Demetrius also works at that [employer] station. The couple has been trying to [...] Lynda's have already chosen a donor from [facility] in [place]. They chose this donor because he is [...] party reproductive option. documented in this encounter [facility] Work Phone: 03-11-2024 Note HNO ID: [id number] Author: SHELLY HERNANDEZ APRN.BUSINESS PLANNING DIRECTOR Service: ? Author Type: Nurse Practitioner Type: [...] Either the patient or their legal community health representative has been informed of the risks [...] Practice cycle Plan: Episode created.Reviewed checklist - SimpliVity message sent Practice cycle: recommended OPKs to test for ovulation and timing of IUIs, patient to call with +OPK, confirm ovulation with progesterone level Follow up once checklist is complete to discuss test results and next steps. Shelly Hernandez APRN.BUSINESS PLANNING DIRECTOR March 11, 2024 10:42 PM I spent a total of 55 minutes on the date of the service which included preparing to see the patient, navk-oa-vpin patient care, completing clinical documentation, obtaining and/or [...] and typographical errors missed in proofreading. [facility] 03-11-2024 History of Present illness Narrative Images [...] Either the patient or their legal community health representative has been informed of the risks [...] Practice cycle Plan: Episode created.Reviewed checklist - ClassOwlhart message sent Practice cycle: recommended OPKs to test for ovulation and timing of IUIs, patient to call with +OPK, confirm ovulation with progesterone level Follow up once checklist is complete to discuss test results and next steps. Shelly Hernandez APRN.BUSINESS PLANNING DIRECTOR March 11, 2024 10:42 PM I spent a total of 55 minutes on the date of the service which included preparing to see the patient, jzkm-ns-uiri patient care, completing clinical documentation, obtaining and/or [...] missed in proofreading. documented in this encounter [facility] 03-09-2024 Instructions Shelly Hernandez APRN.CNP - 03/09/2024 [...] please call the office. ~Silvia Hernandez APRN.CNP [phone] Donor Sperm Checklist Donor Sperm Labs Mandatory [...] Sravan must be present Amanda Gillespie MD (Gideon) - [phone] Rani Sims (Filomena Hernandez) - [phone] - virtual visit Saúl Enriquez, - virtual [...] to date). Please get scheduled with your sales manager or pcp if needed. Practice with Ovulation Predictor Kit (OPK) First day of full flow is cycle day #1. Start using on ovulation predictor kit on cycle day 10. Use your OPK once a day, in the morning with your second urine of the day. Send in a CoreFlow message when you get a positive OPK. [...] Once your checklist is complete, please call [phone] to get scheduled for a donor sperm follow up appointment. Sperm Bank Website [employer] Cryobank [email or web address]/ [employer] [email or web address]://[email or web address] m/ TouchPo Android POS Cryobank https://Beijing Ling[employer] Software.[email or web address]/ [place] [facility] [email or web address]/ [facility] [place] [email or web address]/ [employer] Sperm Bank [email or web address]/ [employer]tex [email or web address]/ If you would like to start browsing [...] is needed. Test: CPT Code: Blood type 89928 HIV 58980 CMV IgG 05759 CMV IgM 50475 Syphilis 92908 Hepatitis B Surface Ag 31061 Hepatitis B Core Ab, IgG and IgM 49195 Hepatitis C Ab 37840 Rubella 68197 Varicella 52118 Chlamydia 11132 Gonorrhea 49500 For the above tests, reference the diagnosis code of Z11.9 documented in this encounter [facility] 02-28-2024 Plan of care note Assessment- male [...] for three cycles. They will meet with RUBBER TESTER to review the IUI checklist and sign consents. I spent a total of 45 minutes on the date of the service which included preparing to see the patient, gzzu-wo-hipk patient care, completing clinical documentation, counseling and educating the patient/family/caregiver, and ordering medications, tests, or procedures. 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 They will meet with RUBBER TESTER to review the IUI checklist and sign consents. I spent a total of 45 minutes on the date of the service which included preparing to see the patient, oqnr-sy-ffif patient care, completing clinical documentation, counseling and educating the patient/family/caregiver, and ordering medications, tests, or procedures. Ignacio Guy MD documented in this encounter [facility] 02-28-2024 Instructions Ignacio Guy MD - 02/28/2024 2:47 PM EST Dear Jaz Sanders Using donor sperm at the [facility] requires some set up (outlined below). Requirements to use donor sperm at the [facility]: Teaching with JAMEL SKYLAR - please call [phone] to schedule a donor sperm teach with [...] to help with the donor selection process. [email or web address] Carrier Screen is the test ordered. Processing time takes 2-3 weeks. If your insurance doesn't cover it, the self-pay de oliveira is ~$250. Counselor You and your partner/spouse (if applicable) must see a counselor for a donor sperm assessment. Amanda Gillespie MD ([place]) - [phone] Rani Sims ([facility]) - [phone] Doris Lama ([place]) - [phone] Consent form - must be signed by [...] Required Tests Test: CPT Code: Blood type 26470 HIV 57331 CMV IgG 85167 CMV IgM 45409 Syphilis 23538 Hepatitis B Surface Ag 13561 Hepatitis B Core Ab, IgG and IgM 50404 Hepatitis C Ab 38668 Rubella 30208 Varicella 90218 Chlamydia 73077 Gonorrhea 54413 For the above tests, reference the diagnosis code of Z31.49. [email or web address] Carrier Screen - [employer] will check coverage for you. For this [...] your test results into consideration. Sperm [facility] [employer] [place] [facility] ([place]) [facility] Cryobank [facility] Cryobank [facility] [employer] ([facility] [place]) [place] [facility] *Do not order any sperm until your checklist is complete. We will review ordering instructions at your follow up visit. Next Steps: Call insurance to verify coverage for donor sperm panel. Schedule donor sperm teach with my nurse practitioner, Silvia Hernandez. Ignacio Guy MD [phone] documented in this encounter [facility] 02-28-2024 Note HNO ID: [id number] Author: IGNACIO GUY MD Service: ? 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 [...] for three cycles. They will meet with RUBBER TESTER to review the IUI checklist and sign consents. I spent a total of 45 minutes on the date of the service which included preparing to see the patient, usqn-cy-qpou patient care, completing clinical documentation, counseling and educating the patient/family/caregiver, and ordering medications, tests, or procedures. 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 [...] for three cycles. They will meet with RUBBER TESTER to review the IUI checklist and sign consents. I spent a total of 45 minutes on the date of the service which included preparing to see the patient, pcev-nw-rvhs patient care, completing clinical documentation, counseling and educating the patient/family/caregiver, and ordering medications, tests, or procedures. Ignacio Guy MD documented in this encounter [facility] 02-27-2024 Evaluation note Diagnosis Onset Date Resolution Degenerative superior labral gvnoxpni-el-hecwiokzz (SLAP) tear of right matthias acute Novembe [...] Novem wenceslao 2023 2:25pm Degenerative superior labral rbkbxvop-eq-obwkddfxw (SLAP) tear of right matthias acute April 23, 2024 2:29pm Laxity of ligament acute Januar 2024 2:29pm Multidirectional instability of glenohumeral joint acute April 23, 2024 2:29pm Other instability, right shoulder acute April 23 2:29pm Right carpal tunnel syndrome acute April 23 2:29pm Status post arthroscopy of right shoulder acute April 23, 2 025 2:29pm [facility] Work Phone: 1(806) 681-843811-11-2024 Evaluation note* Diagnosis Onset Date Resolution Status Admit Date Degenerative superior labral dzglcyve-kw-zolzlpxiv (SLAP) tear of right matthias acute February [...] Novem wenceslao 2023 2:25pm Degenerative superior labral shbmxmxf-mi-oegbbhodi (SLAP) tear of right matthias acute April [...] 8:29am Other chronic pain acute 2024 8:29am [facility] Work Phone: 1(417) 692-945711-04-2024 History of Present illness Narrative* Marsha Asif [...] nursing note reviewed. Exam conducted with a brim shaper present. Vitals: Estimated body mass index is [...] behalf of: TRENT Engle documented in this encounterSSM [id number] Note [id number]#1.00[facility]09-03-2024 Evaluation note* Diagnosis Onset Date Resolution Status Admit Date Degenerative superior labral qejralyo-at-kwldrmgfp (SLAP) tear of right matthias acute December [...] Roxana mber 2023 10:11am Degenerative superior labral gaiggdaw-rd-zfzspekql (SLAP) tear of right matthias acute January [...] Octob er 2023 11:58am Degenerative superior labral arslrugb-mt-gmtlgjinu (SLAP) tear of right matthias acute February [...] post surgery noneactive Novem wenceslao 2023 2:25pm [facility] Work Phone: 1(785) 217-846507-17-2024 NoteEducation Materials Orthopedics Musculoskeletal Pain Musculoskeletal pain [...] mouth or applied to the skin. Take mfld-fvg-ivvdibl and prescription medicines only as told by [...] provider. Document Revised: 08/07/2020 Document Reviewed: 07/16/2020 [place] Patient Education ? 2022 [employer].[id number] Evaluation note* Encounter Date Diagnosis Assessment Notes Treatment Notes Treatment Clinical Notes Apr, Intertrigo (ICD-10 - L30.4) [facility] Other 01-30-2024 Evaluation note* Encounter Date Diagnosis [...] pain of right shoulder (ICD-10 - M25.511) [facility] Other 01-05-2024 Evaluation note* Encounter Date Diagnosis Assessment Notes Treatment Notes Treatment Clinical Notes Apr, Other iron deficiency anemia (ICD-10 - D50.8) [facility] Other 12-28-2023 Evaluation note* Encounter Date Diagnosis Assessment Notes Treatment Notes Treatment Clinical Notes Mar, Vitamin D deficiency (ICD-10 - E55.9) [facility] Other 10-23-2023 Evaluation note* Encounter Date Diagnosis [...] agreement for this and referral was given. [facility] Other 09-21-2023 Evaluation note* Encounter Date Diagnosis Assessment Notes Treatment Notes Treatment Clinical Notes Dec, Other iron deficiency anemia (ICD-10 - D50.8) Dec, Low folic acid (ICD-10 - E53.8) [facility] Other 09-11-2023 Evaluation note* Encounter Date Diagnosis [...] continue to do the exercises for strength. [facility] Other 07-06-2023 Evaluation note* Encounter Date Diagnosis Assessment Notes Treatment Notes Treatment Clinical Notes Oct, Iron deficiency (ICD-10 - E61.1) [facility] Other 06-26-2023 Evaluation note* Encounter Date Diagnosis [...] symptoms and causing pain down the arm. [facility] Other 06-15-2023 Evaluation note* Encounter Date Diagnosis [...] verbalizes understanding and agrees c tx plan. [facility] Other 05-10-2023 Evaluation note* Encounter Date Diagnosis [...] follow-up if no improvement. She verbalizes understnading. [facility] Other 05-05-2023 Evaluation note* Encounter Date Diagnosis Assessment Notes Treatment Notes Treatment Clinical Notes August, Acquired hypothyroidism (ICD-10 - E03.9) Discussed with pt symptoms and lab resutls. Discussed treatment and evaluation. Referral placed to Dr. Sinclair. 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 Patient has an appointment with her SCIENCE CONSULTANT next week. Educated her to go to ED if she continues to have heavy bleeding with symptoms, she verbalized understanding. We will send patient home on iron supplements and docusate as needed for constipation Patient is being discharged today. Documented By: Farhad Gallego MD 06/11/22 1306 Signed By: <Electronically signed by Farhad Gallego MD> 06/11/22 1316 [facility] Work Phone: 1(265) 794-444402-23-2023 History and physical note Author Farhad Gallego [facility] June 10, 2022 6:28pm Note Date/Time June 10, 2022 5:39pm [facility] [address] [place] [address] Hospitalist H&P Signed Patient: Jaz Sanders MR#: [id number] : 1995 Acct:[id number] Age/Sex: 27 / F Adm Date: 3 Loc: 4 Room: 1Z8915-3 Type: ADM INOo Attending Dr: Farhad Gallego MD Copies to: MD Amanda Correa, COMMERCIAL SALES CONSULTANT, BUSINESS PLANNING DIRECTOR~ HPI DATE OF EXAMINATION: 06/10/22 CHIEF COMPLAINT: [...] % (Auto) 41.3 % (.) 06/10/22 14:51 Motley % (Auto) 6.8 % (.) 06/10/22 14:51 Eos % (Auto) 5.0 % (.) 06/10/22 14:51 Baso % (Auto) 1.8 % (.) 06/10/22 14:51 Nucleat RBC Rel Count 0.1 /100 WBC (0-0.5) 06/10/22 14:51 Neut # (Auto) 2.4 x10E3/uL (1.8-7.7) 06/10/22 14:51 Lymph # (Auto) 2.2 x10E3/uL (1.00-4.8) 06/10/22 14:51 Motley # (Auto) 0.4 x10E3/uL (0.0-0.8) 06/10/22 14:51 [...] pH 5.5 (5.0-9.0) 06/10/22 15:40 Ur Specific [place] 1.010 (1.001-1.030) 06/10/22 15:40 Urine Protein Negative [...] code Documented By: Farhad Gallego MD 06/10/22 1734 Signed By: <Electronically signed by Farhad Gallego MD> 06/10/22 9679 [facility] Work Phone: 1(884) 523-187601-04-2023 Evaluation note* Encounter Date Diagnosis Assessment Notes [...] for bleeding. Keep appointment with Dr. Elder. 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 And she has discussed this with Julieta and she had offered her treatement for this. [facility] Other 11-30-2022 Evaluation note* Encounter Date Diagnosis Assessment Notes Treatment Notes Treatment Clinical Notes Feb, Gastroesophageal ref lux disease without esophagitis (ICD-10 - K21.9) [facility] Other 10-24-2022 Evaluation note* Encounter Date Diagnosis [...] to trial the ointment. Follow-up as needed. [facility] Other 05-11-2022 NoteEchocardiology Procedure Exam Date/Time Accession # Ordering Echo Transthoracic 08/25/2021 15:36 EDT [id number] Jay DAVEY, Samir Rivera CPT code 39607 Reason for Exam (Echo Transthoracic Complete) Bradycardia;Other [...] Robin Salazar MD Transcribed by: kerry Technologist: [facility]04-21-2022 Note Echocardiology Procedure Exam Date/Time Accession # Ordering ECG Stress Exercise 08/06/2021 10:22 EDT [id number] Jay DAVEY, Samir Rivera CPT code 83999 Reason for Exam (ECG Stress Exercise) bradycardia;Other [...] Robin Salazar MD Transcribed by: nakul Technologist: [facility]03-31-2022 Evaluation note* Encounter Date Diagnosis Assessment [...] school on two different occasions.Order faxed to [employer]. Jun, Gastroesophageal reflux disease without esophagitis (ICD-10 [...] Jun, Former smoker (ICD-1 0 - Z87.891) [facility] Other Evaluation + Plan note Future Appointments Appointment Date:08/06/2021 09:30:00 AM Scheduled Provider: Location:[facility] Appointment Type:CV Stress (FT) Appointment Date:08/06/2021 11:00:00 AM Scheduled Provider: Location:[facility] Appointment Type:CV Holter/Event (FT) Future Scheduled Tests Radiology* Echo Transthoracic Complete 07/24/21 * [facility]ments Appointment Date:08/11/2021 10:30:00 AM Scheduled Provider:[facility]ir Thompson [facility] [place] [facility] Future Appointments Appointment Date:09/01/2021 02:30:00 PM Scheduled Provider:Samir Thompson MD [facility] [place] [facility] Future Appointments Appointment Date:2022 11:15:00 AM Scheduled Provider:Samir Thompson MD [facility] noteNo InformationNort [employer] Other evaluation noteNo assessment information available [facility] Work Phone: evaluation note* Diagnosis Onset Date Resolution Status Anemia acute Anxiety and depression acute Bipolar disorder acute Iron deficiency anemia acute [facility] Work Phone: evaluation note* Diagnosis Onset Date Resolution Status Abdominal pain acute Chills acute Constipation acute Fever acute H/O gastric sleeve acute Vomiting acute [facility] Work Phone: evaluation note* Diagnosis Onset Date Resolution Status [id number] acute Laxity of ligament acute Multidirectional instability of glenohumeral joint acute Numbness of right hand acute Other instability, right shoulder acute [facility] Work Phone: evaluation note* Diagnosis Onset Date Resolution Status [id number] acute Laxity of ligament acute Multidirectional instability of glenohumeral joint acute Numbness of right hand acute Other instability, right shoulder acute [id number] acute Laxity of ligament acute Multidirectional instability of glenohumeral joint acute Numbness of right hand acute Other instability, right shoulder acute Right carpal tunnel syndrome acute [facility] Work Phone: Evaluation note* Diagnosis Onset Date Resolution Status [id number] acute Laxity of ligament acute Multidirectional instability of glenohumeral joint acute Numbness of right hand acute Other instability, right shoulder acute [id number] acute Laxity of ligament acute Multidirectional instability of glenohumeral joint acute Numbness of right hand acute Other instability, right shoulder acute Right carpal tunnel syndrome acute [id number] acute Laxity of ligament acute Multidirectional instability of glenohumeral joint acute Other instability, right shoulder acute Right carpal tunnel syndrome acute [facility] Work Phone: Evaluation note* Diagnosis Onset Date Resolution Status [id number] acute Laxity of ligament acute Multidirectional instability of glenohumeral joint acute Numbness of right hand acute Other instability, right shoulder acute [id number] acute Laxity of ligament acute Multidirectional instability of glenohumeral joint acute Numbness of right hand acute Other instability, right shoulder acute Right carpal tunnel syndrome acute [id number] acute Laxity of ligament acute Multidirectional instability of glenohumeral joint acute Other instability, right shoulder acute Right carpal tunnel syndrome acute [id number] acute Laxity of ligament acute Multidirectional instability of glenohumeral joint acute Other instability, right shoulder acute Right carpal tunnel syndrome acute Status post arthroscopy of right shoulder acute [facility] Work Phone: Evaluation note* Diagnosis Onset Date Resolution Status [id number] acute Laxity of ligament acute Multidirectional instability of glenohumeral joint acute Numbness of right hand acute Other instability, right shoulder acute Right carpal tunnel syndrome acute [id number] acute Laxity of ligament acute Multidirectional instability of glenohumeral joint acute Other instability, right shoulder acute Right carpal tunnel syndrome acute [id number] acute Laxity of ligament acute Multidirectional instability of glenohumeral joint acute Other instability, right shoulder acute Right carpal tunnel syndrome acute Status post arthroscopy of right shoulder acute Status post surgery noneacti ve [id number] acute Laxity of ligament acute Multidirectional instability of glenohumeral joint acute Other instability, right shoulder acute Right carpal tunnel syndrome acute Status post arthroscopy of right shoulder acute Status post surgery noneacti [facility] Work Phone: Evaluation note* Diagnosis Well woman exam with routine gynecological exam Routine gynecological examination [facility] Diagnosis 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 documented in this encounter [facility] note* Diagnosis Reproductive mgmt, 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 Special screening examination for infectious diseases Screening examination for unspecified infectious disease Encounter for other genetic testing of female for procreative management documented in this encounter [facility] note* Diagnosis Bipolar 1 disorder (Multi)- Primary Infertility counseling documented in this encounter [facility] Work Phone: Evaluation note* Diagnosis Treatment plan provided- Primary documented in this encounter [facility] note* Diagnosis Reproductive mgmt, 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 documented in this encounter [facility] note* Diagnosis Procreative management- Primary Unspecified procreative management documented in this encounter [facility] note* Diagnosis Female infertility- Primary Female infertility of unspecified origin documented in this encounter [facility] note* Diagnosis Fertility testing- Primary Female infertility Female infertility of unspecified origin documented in this encounter [facility] note* Diagnosis Encounter for fertility planning [Z31.89]- Primary Other specified procreative management documented in this encounter [facility] note* Diagnosis Encounter for artificial insemination- Primary Artificial insemination documented in this encounter [facility] note* Diagnosis 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)- Primary documented in this encounter [facility] note* Diagnosis 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)- Primary documented in this encounter [facility] note* Diagnosis Abnormal thyroid function test- Primary Nonspecific abnormal results of thyroid function study 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 Vitamin D deficiency [facility]* Diagnosis 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) [facility] Diagnosis Early stage of (HCC) state, incidental [facility] Diagnosis Amenorrhea Absence of menstruation 9 weeks gestation of Missed menses , unspecified gestational age Encounter for supervision of normal first in first trimester documented in this encounter [facility]* Diagnosis 13 weeks gestation of ([facility]) Second trimester ([facility] state, incidental Thyroid disease Unspecified disorder of thyroid H/O gastric sleeve H/O iron deficiency anemia resulting from in vitro fertilization in first trimester ([facility] documented in this encounter [facility]* Diagnosis Well woman exam with routine gynecological exam Routine gynecological examination Exposure to STD Second trimester ([facility]) state, incidental 18 weeks gestation of ([facility]) Need for maternal serum alpha-protein (MSAFP) screening ([facility]) Screening, , for anatomic survey ([facility]) Encounter for anatomic survey Thyroid disease Unspecified disorder of thyroid documented in this encounter [facility]* Diagnosis Previous gastric bypass affecting , antepartum- Primary Hypothyroidism affecting in second trimester 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 ([facility]) Obesity affecting in second trimester, unspecified obesity type Encounter for supervision of resulting from assisted reproductive technology, antepartum [facility] Diagnosis 20 weeks gestation of - Primary Previous gastric bypass affecting , antepartum Obesity affecting in second trimester, unspecified obesity type Hypothyroidism affecting in second trimester 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 ([facility]) headache in second trimester [facility] Diagnosis 22 weeks gestation of ([facility] [facility] Second trimester ([facility]) state, incidental Thyroid disease Unspecified disorder of thyroid H/O gastric sleeve H/O iron deficiency anemia Diabetes mellitus screening Screening for diabetes mellitus documented in this encounter [facility] HealthcareEvaluation note* Diagnosis Previous gastric bypass affecting , antepartum- Primary Hypothyroidism affecting in second trimester 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 ([facility] Obesity affecting in second trimester, unspecified obesity type documented in this encounter [facility] Narrative - Reported* Type Description Date Surgical History cholecystectomy 2014 Surgical History gastric sleeve 2020 Fourteen IP Other History general Narrative - Reported* Type Description Date Medical History Hypothyroidism Medical History MNG Medical History enuresis Medical History extreme obesity Medical History GERD with esophagitis Medical History headache Medical History Goiter, nontoxic, multinodular Medical History Vitamin D deficiency Surgical History cholecystectomy 2014 Surgical History cholecystectomy 2015 Surgical History gastric sleeve 2020 Hospitalization History Anemia 05/2022 [facility] IP Other Hospital course Narrative No data available for this section [facility] Discharge instructions No data available for this section [facility] Discharge instructions Additional Instructions POSTOPERATIVE INSTRUCTIONS FOR SHOULDER LABRAL REPAIR Romeo Santana DO Orthopedic Surgeon [facility] GENERAL INSTRUCTIONS: Use ice packs to [...] Romeo Santana DO Orthopedic Surgeon [facility] Office: [address] [place] [address] Office number: [phone] [facility] Work Phone: Hospital Discharge instructionsAmbulatory Orders* Referral to Allergy/Immunology Time Frame: 04/26/24, Location: None Selected [facility] Work Phone: Hospital Discharge instructions Additional Instructions We evaluated you for your vaginal bleeding in . Your ultrasound was normal, the baby has a good heart rate, measuring at 13 weeks and 1 day. Your cervix was closed. Follow-up closely with your SCIENCE CONSULTANT. Return to the emergency department if you develop any worsening or concerning symptoms.[facility] Work Phone: InstructionsNot on filedocumented in this encounter [facility] SystemInstructionsNot on filedocumented in this encounter [facility]* Attachments The following attachments cannot be sent through Care Everywhere. * Preeclampsia (Bulgarian) documented in [facility] SystemInstructionsNot on file documented in this encounterProLutheran Hospital SystemInstructionsNot on file documented in this encounterProLutheran Hospital SystemReason for referral (narrative)No reason for referral information availableKing'S [facility] Work Phone: [facility] Narrative* Consult, Test, Treat (Routine) - Closed Specialty Diagnoses / Procedures Referred By Contact Referred To Contact [facility] Diagnoses Encounter for procreative management, unspecified Encounter for other procreative management Procedures ARTIFIC INSEMINATION INTRAUTERIN THAWING CRYOPRESERVED SPERM/SEMEN EACH ALIQUOT Daniel Hanna APRN.BUSINESS PLANNING DIRECTOR [address] [place] [id number] Phone: tel:[phone] fax: [phone] [facility] [address] [place] [address] Phone: tel: Referral ID Status Reason Start Date Expiration Date V isits Requested Visits Authorized [id number] Closed Financial Clearance Required - Self Pay Patient Cleared - True Self-Pay required payment collected Do Not Bill Insurance - SP patient 05/17/2024 08/15/2024 2 2 [facility] for visit Narrative* Diagnostic Procedure Only (Routine) - Authorized Specialty Diagnoses / Procedures Referred By Contac t Referred To Contact [facility] Diagnoses Fertility testing Procedures PELVIC US WHI US PELVIC NONOBSTETRIC REAL-TIME IMAGE COMPLETE Ignacio Guy MD [address] [place] [address] Phone: tel: fax: [facility] [address] [place] [address] Referral ID Status Reason Start Date Expiration Date Visits Requested Visits Authorized [id number] Authorized Auto-Generate d Referral Patient Cleared - [...] EACH ALIQUOT ARTIFIC INSEMINATION INTRAUTERIN Daniel Hanna, COMMERCIAL SALES CONSULTANT.BUSINESS PLANNING DIRECTOR [address] [id number] Phone: tel:[phone] fax: [phone] [facility] [address] [place] [address] Phone: tel: Referral ID Status Reason Start Date Expiration Date V isits Requested Visits Authorized [id number] Closed Patient Cleared - True Self-Pay required payment collected Do Not Bill Insurance - SP patient 06/29/2024 09/27/2024 2 2 [facility] for visit Narrative* Financial Clearance (Routine) - Closed Specialty Diagnoses / Procedures Referred By Saud t Referred To Contact [facility] Diagnoses Collect for IUI-D washed sample Procedures THAWING CRYOPRESERVED SPERM/SEMEN EACH ALIQUOT ARTIFIC INSEMINATION INTRAUTERIN FINANCIAL CLEARANCE PHONE CALL Self Financial Clearance Phone Screening [facility] Referral ID Status Reason Start Date Expiration Date V isits Requested Visits Authorized [id number] Closed Financial Clearance Required - Self Pay Patient Cleared - True Self-Pay required payment collected Do Not Bill Insurance - SP patient 07/25/2024 09/23/2024 2 2 [facility] for visit Narrative* Diagnostic Procedure Only (Routine) - Closed Specialty Diagnoses / Procedures Referred By Saud t Referred To Contact [facility] Diagnoses 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) Procedures OBSTETRIC ULTRASOUND WHI US PREG UTERUS AFTER 1ST TRIMEST GESTATION Shelly Hernandez APRN.BUSINESS PLANNING DIRECTOR [address] [place] [id number] Phone: tel: fax: [address] [address] Referral ID Status Reason Start Date Expiration Date V isits Requested Visits Authorized [id number] Closed Auto-Generate d Referral 08/20/2024 08/20/2025 1 1 [facility] for visit Narrative* Diagnostic Procedure Only (Routine) - Closed Specialty Diagnoses / Procedures Referred By Saud t Referred To Contact [facility] Diagnoses Early stage of (HCC) Procedures OBSTETRIC ULTRASOUND WHI US PREG UTERUS AFTER 1ST TRIMEST / GESTATION Shelly Hernandez APRN.BUSINESS PLANNING DIRECTOR [address] [address] Phone: tel: fax: [address] [phone] Referral ID Status Reason Start Date Expiration Date V isits Requested Visits Authorized [id number] Closed Auto-Generate d Referral 09/03/2024 04/17/2025 1 1 [facility] Advance Directives Documents on File Type Date Recorded Patient Graduating Machine Operator Expl anation ACP-Advance Directive ACP-Power of Tube And Manifold Builder Documents on File Type Date Recorded Patient Graduating Machine Operator Expl anation ACP-Advance Directive ACP-Power of Tube And Manifold Builder Latest Code Status on File Code Status [...] drive you home after your procedure. Your long haul truck driver must be 18 years of [...] questions, call the Pre-Admission Testing Unit at [phone]. Day of Surgery/Procedure As a patient at [facility] you can expect quality medical and nursing care that is centered on your individual needs. Our goal is to make your surgical experience as comfortableas possible . Directions to the Surgery Center [facility] is located at [address] [place] [address]. Please pull into the Emergency parking lot and stop at the resaw machine operator dotson. We offer free resaw machine operator service for all our surgery patients, if you choose not to have resaw machine operator parking we have additional parking across the street.You will enter the facility following the [facility] sign. Please stop at the airline lounge receptionist desk where you will be checked in by the staff. If you have any questions please call [phone]. Transportation after your procedure. You will need a friend or family member to drive you home after your procedure. Your long haul truck driver must be18 years of age [...] may shave your face or neck. ? [place] your teeth but do not swallow water. [...] or the day of surgery, please call [phone], or [phone] documented in this encounter* Instructions* Mukesh Montez, [...] 48 hours call the anesthesia department at [phone]. Will you need pain medication? The nerve [...] block please phone the Anesthesiology Department at [phone]. If the phone does not get answered please contact the hospital metal machine operator at [phone] to page the heating and ventilation engineer anesthesiologist Discharge Instructions for Bariatric Surgery You had a Laparoscopic Sleeve Gastrectomy (03501) surgery to treat obesity. Recovery from this [...] scheduled appointment, please call the office at [phone]. Call Your Doctor If Any of the [...] AM EST CLINICAL PHARMACY NOTE: MEDS TO [facility] Patient?: No Total # of Prescriptions Filled: 3 The following medications were delivered to the patient: Oxycodone-acetaminophen 5/325 mg tab Cyclobenzaprine 10 mg tab Enoxaparin 60mg /0.6 ml syr Total # of Interventions Completed: 1 Time Spent (min): 60 Additional Documentation:called case finishing machine adjuster about the high co-pay on the enoxaparin [...] SHOULDER DI SCUSS SURGERY Reason for Visit [id number] Laxity of ligament Multidirectional instability of glenohumeral joint Numbness of right hand Other instability, right shoulder Chief Complaint OP SP RT SHOULDER DI SCUSS SURGERY R20.0 Reason for Visit [id number] Laxity of ligament Multidirectional instability of glenohumeral joint Numbness of right hand Other instability, right shoulder Chief Complaint OP SP RT SHOULDER DI SCUSS SURGERY R20.0 EMG RESULTS Reason for Visit [id number] Laxity of ligament Multidirectional instability of glenohumeral joint Numbness of right hand Other instability, right shoulder [id number] Laxity of ligament Multidirectional instability of glenohumeral joint Numbness of right hand Other instability, right shoulder Right carpal tunnel syndrome Chief Complaint OP SP RT SHOULDER DI SCUSS SURGERY R20.0 EMG RESULTS Shoulder pain Reason for Visit [id number] Laxity of ligament Multidirectional instability of glenohumeral joint Numbness of right hand Other instability, right shoulder [id number] Laxity of ligament Multidirectional instability of glenohumeral joint Numbness of right hand Other instability, right shoulder Right carpal tunnel syndrome Chief Complaint OP SP RT SHOULDER DI SCUSS SURGERY R20.0 EMG RESULTS Shoulder pain H & P RIGHT SHOULDER ARTHROSCOPY 12-07-23 Reason for Visit [id number] Laxity of ligament Multidirectional instability of glenohumeral joint Numbness of right hand Other instability, right shoulder [id number] Laxity of ligament Multidirectional instability of glenohumeral joint Numbness of right hand Other instability, right shoulder Right carpal tunnel syndrome [id number] Laxity of ligament Multidirectional instability of glenohumeral joint Other instability, right shoulder Right carpal tunnel syndrome Chief Complaint OP SP RT SHOULDER DI SCUSS SURGERY R20.0 EMG RESULTS Shoulder pain H & P RIGHT SHOULDER ARTHROSCOPY 12-07-23 Shoulder pain Shoulder pain Reason for Visit [id number] Laxity of ligament Multidirectional instability of glenohumeral joint Numbness of right hand Other instability, right shoulder [id number] Laxity of ligament Multidirectional instability of glenohumeral joint Numbness of right hand Other instability, right shoulder Right carpal tunnel syndrome [id number] Laxity of ligament Multidirectional instability of glenohumeral joint Other instability, right shoulder Right carpal tunnel syndrome Chief Complaint OP SP RT SHOULDER DI SCUSS SURGERY R20.0 EMG RESULTS Shoulder pain H & P RIGHT SHOULDER ARTHROSCOPY 12-07-23 Shoulder pain Shoulder pain 10-14 DAYS POST OP Reason for Visit [id number] Laxity of ligament Multidirectional instability of glenohumeral joint Numbness of right hand Other instability, right shoulder [id number] Laxity of ligament Multidirectional instability of glenohumeral joint Numbness of right hand Other instability, right shoulder Right carpal tunnel syndrome [id number] Laxity of ligament Multidirectional instability of glenohumeral joint Other instability, right shoulder Right carpal tunnel syndrome [id number] Laxity of ligament Multidirectional instability of glenohumeral joint Other instability, right shoulder Right carpal tunnel syndrome Status post arthroscopy of right shoulder Chief Complaint R20.0 EMG RESULTS Shoulder pain H & P RIGHT SHOULDER ARTHROSCOPY 12-07-23 Shoulder pain Shoulder pain 10-14 DAYS POST OP R20.0 4 WEEKS Reason for Visit [id number] Laxity of ligament Multidirectional instability of glenohumeral joint Numbness of right hand Other instability, right shoulder Right carpal tunnel syndrome [id number] Laxity of ligament Multidirectional instability of glenohumeral joint Other instability, right shoulder Right carpal tunnel syndrome [id number] Laxity of ligament Multidirectional instability of glenohumeral joint Other instability, right shoulder Right carpal tunnel syndrome Status post arthroscopy of right shoulder Status post surgery [id number] Laxity of ligament Multidirectional instability of glenohumeral [...] for Visit Admit Date 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 December 20, 2023 10:11am Laxity of ligament December 20, 2023 10:11am Multidirectional instability of glenohum eral joint December 20, 2023 10:11am Other instability, right shoulder Septem 2023 10:11am Right carpal tunnel syndrome December 192023 10:11am Status post arthroscopy of right shoulde r December 20, 2023 10:11am Status post surgery December 20, 2023 10:11am Degenerative superior labral puutjijh-qe-oosjalpyn (SLAP) tear of right matthias January 17, 2024 11:58am Laxity of ligament January 17, 2024 11 :58am Multidirectional instability of glenohum eral joint January 17, 2024 11:58am Other instability, right shoulder Octobe 2023 11:58am Right carpal tunnel syndrome January 11:58am Status post arthroscopy of right shoulde r January 17, 2024 11:58am Status post surgery January 17, 2024 11 :58am Degenerative superior labral lbjzukta-mv-yhnmperdc (SLAP) tear of right matthias February 27, [...] for Visit Admit Date Degenerative superior labral ljuultmh-va-wmkictxss (SLAP) tear of right matthias February 27, 2024 2:25pm Laxity of ligament February 27, 2024 2:25pm Multidirectional instability of glenohum eral joint February 27, 2024 2:25pm Other instability, right shoulder Novemb er 2023 2:25pm Right carpal tunnel syndrome February 262023 2:25pm Status post arthroscopy of right shoulde r February 27, 2024 2:25pm Status post surgery February 27, 2024 2:25pm Degenerative superior labral enpcesou-qi-knfxpurxt (SLAP) tear of right matthias April 23, [...] for Visit Admit Date Degenerative superior labral bttimhzt-sm-hafhlsqem (SLAP) tear of right matthias February 27, 2024 2:25pm Laxity of ligament February 27, 2024 2:25pm Multidirectional instability of glenohum eral joint February 27, 2024 2:25pm Other instability, right shoulder Novemb er 2023 2:25pm Right carpal tunnel syndrome February 262023 2:25pm Status post arthroscopy of right shoulde r February 27, 2024 2:25pm Status post surgery February 27, 2024 2:25pm Degenerative superior labral pqarvmih-lw-yjsrzqhik (SLAP) tear of right matthias April 23, [...] therapy exercises and steroid injection, MRI at [facility], Dr. Santana Diagnosis 1 Tear of right glenoi d labrum, initial encounter (S43.431A) Referral Organization [facility] Family Medicin e Erasmo Referring Provider First Name Petr Referring Provider Last Name Alireza Referring Provider Specialty Family Prac bret Referred Organization 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 Family Medicin e Colp Referring Provider First Name Amanda Referring Provider Last Name Logan Referring Provider Specialty Nurse Destiney hall Referred Organization [facility] Referred Provider Darleen Sinclair Referred Address [address] [facility] [address],[place], [place],[address] Referred Provider Specialty Endocrinolog y Referral Priority Routine General Notes Fore, Chelsi M 023 11:26:34 AM >Received today and waiting for office notes to be locked before sending referral Additional Source Comments Reason for Visit (unrecogniz ed section and content) Status Reason Specialty Diagnoses / Procedures Referre d By Contact Referred To Contact Diagnoses Morbid obesity (HCC) MORBID OBESITY, HYPOTHYROID Procedures GA LAP GASTRIC BYPASS/BEN-EN-Y XI LAPAROSCOPIC ROBOTIC GASTRIC BYPASS BEN-EN-Y, LIVER BIOPSY, EGD- GI UNIT SCHEDULED. Rashard Olivera, [address] [facility] [address] [place] [address] [facility] Reason Comments Gynecologic Exam Reason Comments Infertility Specialty Diagnoses / Procedures Referred By Saud t Referred To Contact [facility] Diagnoses Female infertility, unspecified Procedures VV OFFICE/OP CONSLTJ NEW/EST PT MOD MDM 40 MINUTES Pcp, No, COMMERCIAL SALES CONSULTANT [facility] [address] [address] [place] [address] Referral ID Status Reason Start Date Expiration Date V isits Requested Visits Authorized [id number] Closed Financial Clearance Required - Self Pay Patient Cleared - True Self-Pay required payment collected Do Not Bill Insurance - SP patient Financial Clearance Not Required 12/30/2023 02/28/2024 1 1 Reason Comments donor sperm teach Specialty Diagnoses / Procedures Referred By Saud Referred To Contact [facility] Diagnoses Infertility counseling Procedures OFFICE/OUTPATIENT ESTABLISHED MOD MDM 30 MIN Shelly Hernandez G, COMMERCIAL SALES CONSULTANT.BUSINESS PLANNING DIRECTOR [address] [facility] [address] [place] [id number] [facility] [address] [address] [place] [address] Referral ID Status Reason Start Date Expiration Date V isits Requested Visits Authorized [id number] Closed Financial Clearance Required - Self Pay Patient Cleared - True Self-Pay required payment collected Do Not Bill Insurance - SP patient 02/28/2024 05/28/2024 1 1 Specialty Diagnoses / Procedures Referred By Saud Referred To Contact [facility] Diagnoses Encounter for fertility testing Procedures OFFICE/OUTPATIENT ESTABLISHED LOW MDM 20 MIN [facility] [address] [place] [address] [facility] [address] [place] [id number] Referral ID Status Reason Start Date Expiration Date V isits Requested Visits Authorized [id number] Closed Financial Clearance Required - Self Pay [...] section and content) DATE CREATED AUTHOR 05/08/2020 [facility] DATE CREATED AUTHOR AUTHOR'S ORGANIZ ATION 03/31/[address] [facility] DATE CREATED AUTHOR AUTHOR'S ORGANIZ ATION 09/04/2021 [facility] DATE CREATED AUTHOR AUTHOR'S ORGANIZ ATION 04/19/2024 [facility] DATE CREATED AUTHOR AUTHOR'S ORGANIZ ATION 05/05/2024 [facility] DATE CREATED AUTHOR AUTHOR'S ORGANIZ ATION 09/12/2024 [facility] DATE CREATED AUTHOR AUTHOR'S ORGANIZ ATION 10/05/2024 [facility] DATE CREATED AUTHOR AUTHOR'S ORGANIZ ATION 12/07/2024 [facility] DATE CREATED AUTHOR AUTHOR'S ORGANIZ ATION 12/07/2024 [facility] DATE CREATED AUTHOR AUTHOR'S ORGANIZ ATION 12/20/[address] [facility] DATE CREATED AUTHOR AUTHOR'S ORGANIZ ATION 01/05/2025 [facility] Care Teams (unrecognized sec tion and content) Team Status: Inactive Member Role Status Dates Robin Appiah MD Primary Care Provider Active Amanda Ford APRN RUBBER TESTER-C Attending Provider Act misti Team Status: Inactive Member Role Status Dates Amanda Ford APRN RUBBER TESTER-C Primary Care Provider Active Jean Jett PA-C Emergency Provider Active Team Status: Inactive Member Role Status Dates Amanda Ford APRN RUBBER TESTER-C Primary Care Provider Active Jack Easton DO Emergency Provider Active Team Status: Active Member Role Status Dates Amanda Ford APRN RUBBER TESTER-C Primary Care Provider Active Team Status: Inactive Member Role Status Dates Amanda Ford APRN RUBBER TESTER-C Primary Care Provider, Attending Provider Active Team Status: Active Member Role Status Dates Amanda Ford APRN RUBBER TESTER-C Primary Care Provider Active Jean Jett PA-C Emergency Provider Active Farhad Gallego MD Admit Provider, Attending Provider A ctive Team Status: Inactive Member Role Status Dates Amanda Ford APRN RUBBER TESTER-C Primary Care Provider Active Jean Jett PA-C Emergency Provider Active Farhad Gallego MD Admit Provider, Attending Provider A ctive Team Status: Inactive Member Role Status Dates Amanda Ford APRN RUBBER TESTER-C Primary Care Provider Active ANDREW GrecoC Attending Provider Active Team Status: Inactive Member Role Status Dates Provider Conversion Attending Provider Active St art: May 17, 2023 End: May 17, 2023 Team Status: Inactive Member Role Status Dates Amanda Ford APRN RUBBER TESTER-C Primary Care Provider, Attending Provider Active Start: June 08, 2023 End: June 08, 2023 Team Status: Active Member Role Status Dates Amanda Ford APRN RUBBER TESTER-C Primary Care Provider, Attending Provider Active Start: September 15, 2023 Team Status: Inactive Member Role Status Dates Amanda Ford APRN RUBBER TESTER-C Primary Care Provider Active Start: October 13, 2023 End: October 13, 2023 Romeo Santana DO Attending Provider Active St art: October 13, 2023 End: October 13, 2023 Team Status: Inactive Member Role Status Dates Amanda Ford APRN RUBBER TESTER-C Primary Care Provider Active Start: October 26, 2023 End: October 26, 2023 Romeo Santana DO Attending Provider Active St art: October 26, 2023 End: October 26, 2023 Team Status: Inactive Member Role Status Dates Amanda Ford APRN RUBBER TESTER-C Primary Care Provider Active Start: November 01, 2023 End: November 01, 2023 Romeo Santana DO Attending Provider Active St art: November 01, 2023 End: November 01, 2023 Team Status: Inactive Member Role Status Dates Amanda Ford APRN RUBBER TESTER-C Primary Care Provider Active Start: November 28, 2023 End: November 28, 2023 Romeo Santana DO Attending Provider Active St art: November 28, 2023 End: November 28, 2023 Team Status: Inactive Member Role Status Dates Amanda Ford APRN RUBBER TESTER-C Primary Care Provider Active Start: December 01, 2023 End: December 01, 2023 Romeo Santana DO Attending Provider Active St art: December 01, 2023 End: December 01, 2023 Team Status: Inactive Member Role Status Dates Amanda Ford APRN RUBBER TESTER-C Primary Care Provider Active Start: December 07, 2023 End: December 07, 2023 Romeo Santana DO Attending Provider Active St art: December 07, 2023 End: December 07, 2023 Team Status: Active Member Role Status Dates Amanda Ford APRN RUBBER TESTER-C Primary Care Provider Active Start: November Romeo Santana DO Attending Provider, Other Provider Active Start: December 07, 2023 Team Status: Inactive Member Role Status Dates Amanda Ford APRN RUBBER TESTER-C Primary Care Provider Active Start: December 192023 End: December 20, 2023 Romeo Santana DO Attending Provider Active St art: December 20, 2023 End: December 20, 2023 Team Status: Active Member Role Status Dates Amanda Ford APRN RUBBER TESTER-C Primary Care Provider Active Start: December 182023 Romeo Santana DO Other Provider Active Start: January 10, 2024 Daniel Hampton MD Attending Provider Active Start: January 10, 2024 Team Status: Inactive Member Role Status Dates Amanda Ford APRN RUBBER TESTER-C Primary Care Provider Active Start: January 17, 2024 End: January 17, 2024 Romeo Santana DO Attending Provider Active St art: January 17, 2024 End: January 17, 2024 Class B Driver Relationship Specialty Start Date End Date Amanda Ford NP [address] [place] [address] PCP - [facility] 01/17/23 Class B Driver Relationship Specialty Start Date End Date Amanda Ford NP [address] [place] [address] PCP - [facility] 01/17/23 Team Status: Inactive Member Role Status Dates Amanda Ford APRN RUBBER TESTER-C Primary Care Provider Active Start: February 262023 End: February 27, 2024 Romeo Santana DO Attending Provider Active St art: February 27, 2024 End: February 27, 2024 Class B Driver Relationship Specialty Start Date End Date Amanda Ford NP PCP - [facility] 01/17/23 Team Status: Active Member Role Status Dates Amanda Ford APRN RUBBER TESTER-C Primary Care Provider Active Start: February Les Martinez DO Attending Provider Active Start : February 20, 2024 Team Status: Inactive Member Role Status Dates Amanda Ford APRN RUBBER TESTER-C Primary Care Provider Active Start: April 23, 2024 End: April 23, 2024 Romeo Santana DO Attending Provider Active St art: April 23, 2024 End: April 23, 2024 Team Status: Inactive Member Role Status Dates Amanda Ford APRN RUBBER TESTER-C Primary Care Provider, Attending Provider Active Start: April 26, 2024 End: April 26, 2024 Class B Driver Relationship Specialty Start Date End Date Amanda Ford NP [address] [place] [address], [place] [address] PCP - General Family Medicine 01/17/23 Class B Driver Relationship Specialty Start Date End Date Amanda Ford NP [address] [facility] [place] [address] PCP - General Family Medicine 01/17/23 Class B Driver Relationship Specialty Start Date End Date Amanda Ford NP [address] [facility] [place] [address] PCP - General Family Medicine 01/17/23 Class B Driver Relationship Specialty Start Date End Date Amanda Ford NP [address] [facility] [place] [address] PCP - General Family Medicine 01/17/23 Team Status: Inactive Member Role Status Dates Amanda Ford APRN RUBBER TESTER-C Primary Care Provider Active Start: October 18, 2024 End: October 18, 2024 Kassidy Arriaza DO Emergency Provider Active Start: October 18, 2024 End: October 18, 2024 Class B Driver Relationship Specialty Start Date End Date Amanda Ford NP [address] [facility] [place] [address] PCP - General Family Medicine 01/17/23 Class B Driver Relationship Specialty Start Date End Date No Pcp, [place] [address] PCP - General Family Medicine 05/20/20 Class B Driver Relationship Specialty Start Date End Date No Pcp, [place] [address] PCP - General Family Medicine 05/20/20 Class B Driver Relationship Specialty Start Date End Date Amanda Ford NP [address] [facility] [place] [address] PCP - General Family Medicine 01/17/23 Class B Driver Relationship Specialty Start Date End Date Amanda Ford NP [address] [place] [address] PCP - General Family Medicine 01/17/23 Class B Driver Relationship Specialty Start Date End Date Amanda Ford NP [facility] [place] [address] PCP - General Family Medicine 01/17/23 Team Status: Active Member Role Status Dates Amanda Ford APRN RUBBER TESTER-C Primary Care Provider Active Start: November 17, 2024 Chris Dickerson DO Attending Provider Active S tart: November 17, 2024 Team Status: Active Member Role Status Dates Amanda Ford APRN RUBBER TESTER-C Primary Care Provider Active Start: November 20, 2024 Les Martinez DO Attending Provider Active Start : November 20, 2024 Team Status: Active Member Role Status Dates Amanda Ford APRN RUBBER TESTER-C Primary Care Provider Active Start: November 30, [...] Member Role Status Dates Amanda Ford APRN RUBBER TESTER-C Primary Care Provider Active Start: December 02, 2024 End: December 03, 2024 Eduardo Cruz DO Attending Provider Active Sta rt: December 02, 2024 End: December 03, 2024 Class B Driver Relationship Specialty Start Date End Date No Pcp, [place] [address] PCP - General Family Medicine 05/20/20 Class B Driver Relationship Specialty Start Date End Date No Pcp, [place] [address] PCP - General Family Medicine 05/20/20 Class B Driver Relationship Specialty Start Date End Date Amanda Ford NP [address] [place] [address] [address] [place] [id number] PCP - General Family Medicine 01/17/23 Class B Driver Relationship Specialty Start Date End Date No Pcp, [place] [address] PCP - General Family Medicine 05/20/20 Class B Driver Relationship Specialty Start Date End Date No Pcp, [place] [address] PCP - General Family Medicine 05/20/20 Goals [...] or prosecute any alcohol or drug abuse patient.[facility] [place]onIn the event this information is protected by the Federal Confidentiality of Alcohol and Drug Abuse Patient Records regulations: The Federal rules restrict any use of the information to criminally investigate or prosecute any alcohol or drug abuse patient.[facility] [place]onIn the event this information is protected by the Federal Confidentiality of Alcohol and Drug Abuse Patient Records regulations: The Federal rules restrict any use of the information to criminally investigate or prosecute any alcohol or drug abuse patient.[facility] [place]onIn the event this information is protected by the Federal Confidentiality of Alcohol and Drug Abuse Patient Records regulations: The Federal rules restrict any use of the information to criminally investigate or prosecute any alcohol or drug abuse patient.[facility] [place]onIn the event this information is protected by the Federal Confidentiality of Alcohol and Drug Abuse Patient Records regulations: The Federal rules restrict any use of the information to criminally investigate or prosecute any alcohol or drug abuse patient.[facility] [place]onIn the event this information is protected by the Federal Confidentiality of Alcohol and Drug Abuse Patient Records regulations: The Federal rules restrict any use of the information to criminally investigate or prosecute any alcohol or drug abuse patient.[facility] [place]onIn the event this information is protected by the Federal Confidentiality of Alcohol and Drug Abuse Patient Records regulations: The Federal rules restrict any use of the information to criminally investigate or prosecute any alcohol or drug abuse patient.[facility] [place]onIn the event this information is protected by the Federal Confidentiality of Alcohol and Drug Abuse Patient Records regulations: The Federal rules restrict any use of the information to criminally investigate or prosecute any alcohol or drug abuse patient.[facility] [place]onIn the event this information is protected by the Federal Confidentiality of Alcohol and Drug Abuse Patient Records regulations: The Federal rules restrict any use of the information to criminally investigate or prosecute any alcohol or drug abuse patient.[facility] [place]onIn the event this information is protected by the Federal Confidentiality of Alcohol and Drug Abuse Patient Records regulations: The Federal rules restrict any use of the information to criminally investigate or prosecute any alcohol or drug abuse patient.[facility] [place]onIn the event this information is protected by the Federal Confidentiality of Alcohol and Drug Abuse Patient Records regulations: The Federal rules restrict any use of the information to criminally investigate or prosecute any alcohol or drug abuse patient.[facility] [place]onIn the event this information is protected by the Federal Confidentiality of Alcohol and Drug Abuse Patient Records regulations: The Federal rules restrict any use of the information to criminally investigate or prosecute any alcohol or drug abuse patient.[facility] [place]onIn the event this information is protected by the Federal Confidentiality of Alcohol and Drug Abuse Patient Records regulations: The Federal rules restrict any use of the information to criminally investigate or prosecute any alcohol or drug abuse patient.[facility] [place]onIn the event this information is protected by the Federal Confidentiality of Alcohol and Drug Abuse Patient Records regulations: The Federal rules restrict any use of the information to criminally investigate or prosecute any alcohol or drug abuse patient.[facility] [place]onIn the event this information is protected by the Federal Confidentiality of Alcohol and Drug Abuse Patient Records regulations: The Federal rules restrict any use of the information to criminally investigate or prosecute any alcohol or drug abuse patient.[facility] [place]onIn the event this information is protected by the Federal Confidentiality of Alcohol and Drug Abuse Patient Records regulations: The Federal rules restrict any use of the information to criminally investigate or prosecute any alcohol or drug abuse patient.[facility] [place]onIn the event this information is protected by the Federal Confidentiality of Alcohol and Drug Abuse Patient Records regulations: The Federal rules restrict any use of the information to criminally investigate or prosecute any alcohol or drug abuse patient.[facility] [place]onIn the event this information is protected by the Federal Confidentiality of Alcohol and Drug Abuse Patient Records regulations: The Federal rules restrict any use of the information to criminally investigate or prosecute any alcohol or drug abuse patient.[facility] [place]onIn the event this information is protected by the Federal Confidentiality of Alcohol and Drug Abuse Patient Records regulations: The Federal rules restrict any use of the information to criminally investigate or prosecute any alcohol or drug abuse patient.[facility], [place]onIn the event this information is protected by the Federal Confidentiality of Alcohol and Drug Abuse Patient Records regulations: The Federal rules restrict any use of the information to criminally investigate or prosecute any alcohol or drug abuse patient.[facility], [place]onIn the event this information is protected by the Federal Confidentiality of Alcohol and Drug Abuse Patient Records regulations: The Federal rules restrict any use of the information to criminally investigate or prosecute any alcohol or drug abuse patient.[facility] [place]onIn the event this information is protected by the Federal Confidentiality of Alcohol and Drug Abuse Patient Records regulations: The Federal rules restrict any use of the information to criminally investigate or prosecute any alcohol or drug abuse patient.[facility] [place]onIn the event this information is protected by the Federal Confidentiality of Alcohol and Drug Abuse Patient Records regulations: The Federal rules restrict any use of the information to criminally investigate or prosecute any alcohol or drug abuse patient.[facility] [place]onIn the event this information is protected by the Federal Confidentiality of Alcohol and Drug Abuse Patient Records regulations: The Federal rules restrict any use of the information to criminally investigate or prosecute any alcohol or drug abuse patient.[facility] [place]onIn the event this information is protected by the Federal Confidentiality of Alcohol and Drug Abuse Patient Records regulations: The Federal rules restrict any use of the information to criminally investigate or prosecute any alcohol or drug abuse patient.[facility] [place]onIn the event this information is protected by the Federal Confidentiality of Alcohol and Drug Abuse Patient Records regulations: The Federal rules restrict any use of the information to criminally investigate or prosecute any alcohol or drug abuse patient.[facility], [place]onIn the event this information is protected by the Federal Confidentiality of Alcohol and Drug Abuse Patient Records regulations: The Federal rules restrict any use of the information to criminally investigate or prosecute any alcohol or drug abuse patient.[facility] [place] FOR RECORDS PERTAINING TO PATIENTS WHO ARE [...] BE BASED ON THE PRIMARY CLINICAL RECORDS. [facility] Work in Field [facility]. provides no warranty or guarantee of the accuracy or completeness of information in this document.
[2025-01-11 15:34] LABS: Thyroid Stimulating Hormone 2.449 uIU/mL (0.358-3.740)
== END 2025-01-11 14:42 | disposition home or self-care (01) ==
LOC: LAB 14:42
PROVIDERS: PCP Nurse Practitioner Family; Visit Provider Obstetrics & Gynecology
DX: E07.9 Disorder of thyroid, unspecified (principal)
CPT/HCPCS: 36415; 84443

== ENCOUNTER 2025-01-21 17:59 | Observation (INO) | payer MEDICAID, SELFPAY ==
--- NOTE | 2025-01-21 18:06 | US_ITS ---
[place] [id number] Patient Name: GUZMAN DEL CID MRN: [facility]:[id number] date: 1995 Sex: F Assigned Patient Location: [facility] Current Patient Location: Accession/Order Number: [id number] Exam Date: 01/21/2025 18:07 Report Date: 01/21/2025 19:30 At the request of: NGUYEN MOLINA MD Procedure: US OB BPP w non-stress Ultrasound biophysical profile INDICATION: Decreased movement COMPARISON: 11/17/2024 FINDINGS/IMPRESSION: Fetus is cephalic position. 11/23 score biophysical profile. Amniotic fluid index volume 15 cm. heart rate 150 bpm. Impression dictated by: Easton Yang M.D. 01/21/2025 7:30 PM Dictation Location: [place] [address] Electronically authenticated by: [id number] Y Date: 01/21/2025 19:30
--- OUTSIDE RECORDS SUMMARY | 2025-01-21 18:07 | XMS_ITS | CCD ---
Author Organization [facility] Care Team Providers Care Cracker Sprayer Name Role Phone Robin Appiah Primary Care Provider MACKENZIE BRITO Referring Unavailable ROBIN APPIAH Primary Care Unavailable RASHARD OLIVERA Referring Unavailable ROBIN APPIAH Primary Care Unavailable RASHARD OLIVERA Referring Unavailable ROBIN APPIAH Primary Care Unavailable RASHARD OLIVERA Admitting Unavailable RASHARD OLIVERA Attending Unavailable ROBIN APPIAH Primary Care Unavailable ROBIN APPIAH Primary Care Unavailable ROBIN APPIAH Primary Care Physician [phone] Amanda Ford Unavailable [phone] MD Robin Appiah Primary Care Provider [phone] MELY Ford Attending Provider MELY Ford Primary Care Provider DO Jack Easton Emergency Provider MARYSOL Jett Emergency Provider [phone] MD Lashonda Farhad Admit Provider MD Farhad Gallego Attending Provider [phone] MELY Ford Attending Provider SHARRON Jefferson Attending Provider Petr Lay Unavailable Romeo Santana Unavailable MELY Ford Primary Care Provider DO Romeo Santana Attending Provider Daxa Ford NPnifer Primary Care Provider Unavailable Rohrbacher PICTURE HANGER, Amanda Primary Care Provider Romeo Santana DO Attending Provider [phone] Rohrbacher VIDEO SYSTEM REPAIRER, Amanda A Primary Care Provider Unavailable Primary Care Provider Unavailabl e DAVID, SHELLY G Referring Unavailable Unavailable Primary Care Provider Unavailabl e SAÚL ENRIQUEZ Attending Unavailable Rohrbacher VIDEO SYSTEM REPAIRER, Amanda A Primary Care Provider DAVID, SHELLY [...] DUDZIAK, DANIEL Referring Unavailable SELF Referring Unavailable DVAID, SHELLY G Attending Unavailable SELF Referring Unavailable [...] Unavailable JUAN, LES R Attending Unavailable Rohrbacher PICTURE HANGER, Amanda Primary Care Provider Kassidy Arriaza DO Emergency Provider [phone] No Pcp, No Pcp Primary Care Provider Unavailabl e Chris Dickerson DO Attending Provider Les Martinez DO Attending Provider [phone] Elizabeth Tom Attending Provider Eduardo Cruz DO [...] Attending Unavailable Amanda Ford Primary Care Unavailable NO PCP, NO PCP Primary Care Unavailable JUAN, LES R Referring Unavailable FLYDARLEEN MARIE F Attending Unavailable LAUREN SINCLAIRMAAri F Referring Unavailable UNIQUE MARTINEZY Attending Unavailable JUANUNIQUE KAPLANY Attending Unavailable JUAN, LES Referring Unavailable JUAN, LES Attending Unavailable JOJO AMES Attending Unavailable VIRY DUENAS Attending Unavailable Allergies Allergy Classification Reported Allergen(s) Allergy Type Date of Onset Reaction(s) Facility (20 sources) Non-steroidal anti-inflammato ry agent Drug allergy Unknown [facility] Other (20 sources) Non-steroidal anti-inflammato ry agent; Translations: [NSAIDs] Drug Allergy 3 Unknown [facility] Healthcare (1 source) ALLERGIES NOT ON FILE; Translations: [ALLERGIES NOT ON FILE] Propensity to adverse reactions (disorder) [facility] 3 Repository (6 sources) NSAIDs; Translations: [NSAIDS (NON-STEROIDAL ANTI-INFLAMMATO RY DRUG)] Propensity to adverse reactions to drug 5 [facility] (1 source) NSAIDs Drug allergy (disorder) 5 [facility] Repository Medications Current Medications Medication Drug Class(es) [...] bedtime) for sleep, 60 tab(s), Refill(s) 2, [facility], 182, cm, 07/09/19 13:03:00 [...] QID, # 60 tab(s), Refills(s) 2, Pharmacy: [facility] Start Date: 10/09/18 Status: Ordered lamoTRIgine 200 mg oral tablet (20 sources) Mood Stabilizer, Anti-epileptic Agent Start: 04-10-2022 Lamotrigine Active MG TABLET April 10, 2022 12:00am Start: 01-30-2020 lamotrigine 20 0 mg Tab 300 mg = 1.5 tab(s), Oral, Daily, # 45 tab(s), Refills(s) 5, Pharmacy: [facility], 182, cm, 12/06/19 12:03:00 EDT, Height/Length [...] qPM, # 90 tab(s), Refills(s) 2, Pharmacy: [facility], 182, cm, 12/06/19 12:03:00 [...] by mouth two times a day. Active [id number] acid ( 19) 29 mg iron- 1 mg tablet,chewable (6 sources) [id number] acid ( 19) 29 mg iron- 1 [...] Start: 03-12-2020 take 2 tablets by [facility] at bedtime quetiapine 50 mg oral tablet 100 mg = 2 tab(s), Oral, Bedtime, # 60 tab(s), Refills(s) 5, Pharmacy: [facility], 182, cm, 12/06/19 12:03:00 [...] food, # 60 cap(s), Refills(s) 2, Pharmacy: [facility], 182, cm, 12/06/19 12:03:00 [...] anxiety, # 60 tab(s), Refills(s) 1, Pharmacy: [facility], 182, cm, 12/06/19 12:03:00 [...] D2) 1,250 mcg (50,000 unit) capsule Discontinued [id number] UNIT PO every week October 08, 2019 12:00am August 01, 2021 2:19pm Takes on Tuesday Start: 05-25-2019 Vitamin D2 200 0 intl units oral capsule Refills(s) 0 Start Date: 05/25/19 Status: Ordered Start: 01-12-2019 End: 05-08-2020 take 1 capsule by mouth every week vitamin D (ERGOCALCIFEROL) 78492 units CAPS capsule Indications: Vitamin D deficiency [...] mental disorders complicating , second trimester] Onset: Episodic Other connective tissue disease (4 sources) [...] 09-03-2018 Chronic Other and delivery including normal (12 sources) Early stage of ; Translations: [Encounter [...] [22 weeks gestation of ] 12-19-2024 Episodic Residual codes; unclassified (2 sources) Gestation period, 26 weeks; Translations: [26 weeks gestation of ] 01-16-2025 Episodic Skin and subcutaneous tissue infections (20 [...] technology in first trimester (HCC) 08-20-2024 Unclassified (17 sources) OB Reminders Onset: 5 10-22-2024 Unclassified (2 sources) keep next scheduled appointment Unclassified (1 source) IUI Onset: 5 Unclassified (1 source) 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 Past or Other Problems Problem Classification [...] Range Facility Urinalysis macro (dipstick) panel (U)on 01-16-2025 Bilirubin, UA Negative Negative - 4(70) +++ mg/dL [facility] Blood, UA Negative Negative - 50 Yehuda/mcL [facility] Clarity, UA Clear [facility] Color, UA Yellow [facility] Glucose, UA Negative Negative - 2000(110) ++++ mg/dL [facility] Interpretation and review of laboratory results Normal [facility] Ketones, UA Negative Negative - 160(16) ++++ mg/dL [facility] Leukocytes, UA Negative Negative - 500+++ Kourtney/mcL [facility] Nitrite, UA Negative Negative - Positive [facility] pH, UA 7 5 - 9 [facility] Protein, UA Negative Negative - 2000(20) ++++ mg/dL [facility] Spec Grav, UA 1.01 1 - 1.03 [facility] Urobilinogen, UA 2.0 0.2 - 12 mg/dL [facility] ALL THYROID STIM HORMONEon 0 01-11-2025 TSH Qn 2.449 m[IU]/L [facility] ALL CBC WITH AUTO DIFFon BASOPHILS ABSOLUTE AUTO 0 [facility] Basophils/100 WBC (Bld) 0.3 % 0.2 - 2.0 % [facility] Eosinophils/100 WBC (Bld) 1.2 % 0.9 - 7.0 % [facility] Erythrocyte distribution width (RBC) [Ratio] 13.2 % 11.0 - 15.0 % [facility] Hematocrit (Bld) [Volume fraction] 35.6 % Low 36.0 - 48.0 % [facility] Hemoglobin (Bld) [Mass/Vol] 12 g/dL 12.0 - 16.0 g/dL [facility] IMMATURE GRANULOCYTES ABS AUTO 0.1 High [facility] Immature granulocytes/100 WBC (Bld) 0.8 % High 0.0 - 0.5 % [facility] Interpretation and review of laboratory results Abnormal [facility] LYMPHOCYTES ABSOLUTE AUTO 2.3 [facility] Lymphocytes/100 WBC (Bld) 19.7 % Low 20.5 - 60.0 % [facility] MCH (RBC) [Entitic mass] 29.6 pg 26.7 - 34.0 pg [facility] MCHC (RBC) [Mass/Vol] 33.7 g/dL 29.9 - 35.2 g/dL [facility] MCV (RBC) [Entitic vol] 87.7 fL 81.0 - 99.0 fL [facility] MONOCYTES ABSOLUTE AUTO 0.7 [facility] Monocytes/100 WBC (Bld) 6.2 % 1.7 - 12.0 % [facility] NEUTROPHILS ABSOLUTE AUTO 8.5 High [facility] Neutrophils/100 WBC (Bld) 71.8 % 43.0 - 75.0 % [facility] Platelet mean volume (Bld) [Entitic vol] 8.7 fL Low 9.5 - 13.5 fL [facility] TBH EO # 0.1 [facility] TBH PLT 187 [facility] TB RBC 4.06 Low [facility] TB WBC 11.8 High [facility] GLUCOSE 1 HOURon 01-09-2025 Glucose [Mass/Vol] 118 mg/dL NINF - 13 0 mg/dL [facility] Urinalysis macro (dipstick) panel (U)on 12-19-2024 Bilirubin, UA Negative Negative - 4(70) +++ mg/dL [facility] Blood, UA Negative Negative - 50 Yehuda/mcL [facility] Clarity, UA Clear [facility] Color, UA Yellow [facility] Glucose, UA Negative Negative - 1999(110) ++++ mg/dL [facility] Interpretation and review of laboratory results Normal [facility] Ketones, UA Negative Negative - 160(16) ++++ mg/dL [facility] Leukocytes, UA Negative Negative - 500+++ Kourtney/mcL [facility] Nitrite, UA Negative Negative - Positive [facility] pH, UA 7 5 - 9 [facility] Protein, UA Negative Negative - 1999(20) ++++ mg/dL [facility] Spec Grav, UA 1.01 1 - 1.03 [facility] Urobilinogen, UA 1.0 0.2 - 12 mg/dL [facility] No Panel Informationon 12-15 [facility] UA (CLEAN/CATCH) PIE FILLING MIXER/CARLOS RO IF IND.on 12-15-2024 BILIRUBIN URINE Negative NEGATIVE [facility] BLOOD URINE SMALL Abnormal NEGATIVE [facility] Clarity (U) CLEAR CLEAR [facility] Color (U) LT. YELLOW YELLOW [facility] GLUCOSE URINE UA Negative NEGATIVE mg/dL [facility] Interpretation and review of laboratory results Abnormal [facility] Ketones Ql (U) Negative NEGATIVE mg/dL [facility] Leukocyte esterase Test strip Ql (U) Negative NEGATIVE [facility] NITRITE URINE Negative NEGATIVE [facility] pH (U) 5.5 [pH] 5.0 - 9.0 [facility] PROTEIN URINE Negative NEG/TRACE mg/dL [facility] SPECIFIC GRAVITY URINE 1.015 1.005 - 1.025 [facility] URINE MICROSCOPIC INDICATED YES [facility] UROBILINOGEN URINE 0.2 EU/dL 0.2 - 1.0 EU/dL [facility] URINE MICROSCOPIC ONLYon 12-15-2024 BACTERIA URINE NONE SEEN NONE SEEN #/HPF [facility] CAST SEEN? NONE SEEN NONE SEEN #/LPF [facility] CRYSTALS SEEN? None Seen None Seen #/HPF [facility] MUCUS URINE NONE SEEN NONE SEEN [facility] SQUAMOUS EPITHELIAL CELL URINE RARE NONE/RARE #/LPF [facility] RBC 0-2 [facility] WBC NONE SEEN NONE SEEN #/HPF [facility] URINE CULTURE INDICATED NO [facility] US OB 14+ WEEKS ANATOMY SCAN on [...] II, MD, PHD at 06-Dec-2024 08:04:50 AM [facility] Normal Not Available Comment on above: Order Comment: US OB ANATOMY SINGLE W US OB CERVICAL LENGTH Estimated Date of Delivery: 04/23/25 Gestational Age as of 11/20/2024: 18w0d Urinalysis complete panel (U )on 12-03-2024 Comment c/o urinary symptoms or increased blood pressure Name Collection Type:: Voided [facility] Appearance of Urineon 2024 Appearance (U) Clear Normal Clear [facility] Comment on above: Order Comment: Comme nt c/o urinary symptoms or increased blood pressure Name Collection Type:: Voided Performed By: #### A DDONUAPLUS #### [facility] [address] [place] [address] [place] Bacteria [Presence] in Urine by AutomatedOrdered By: Eduardo Cruz on 12-02-2024 Bacteria Auto Ql (U) 1+ [HPF] High None Seen [facility] Bilirubin Test strip Ql (U)O rdered By: Eduardo Cruz on 12-02-2024 Bilirubin Ql (U) Negative Negative [facility] Color of Urine by [employer] Color (U) Light-Yellow Normal Yellow [facility] Comment on above: Order Comment: Comme nt c/o urinary symptoms or increased blood pressure Name Collection Type:: Voided Performed By: #### A DDONUAPLUS #### [place] [address] [place] Dipstick and Microscopicon 0 12-02-2024 Bacteria,Urine 1+ [HPF] Normal None Seen [facility] Comment on above: Order Comment: Comme nt c/o urinary symptoms or increased blood pressure Name Collection Type:: Voided Performed By: #### A DDONUAPLUS #### [place] [address] [place] BILIRUBIN,URINE Negative Normal Negative [facility] Comment on above: Order Comment: Comme nt c/o urinary symptoms or increased blood pressure Name Collection Type:: Voided Performed By: #### A DDONUAPLUS #### [place] [id number] [place] Glucose Ql (U) Normal Normal Normal [facility] Comment on above: Order Comment: Comme nt c/o urinary symptoms or increased blood pressure Name Collection Type:: Voided Performed By: #### A DDONUAPLUS #### [place] [id number] [place] Hyaline Casts,Urine None Normal 0-8 [facility] Comment on above: Order Comment: Comme nt c/o urinary symptoms or increased blood pressure Name Collection Type:: Voided Performed By: #### A DDONUAPLUS #### [place] [address] [place] Mucus,Urine 1+ [LPF] Critically abnormal [facility] Comment on above: Order Comment: Comme nt c/o urinary symptoms or increased blood pressure Name Collection Type:: Voided Result Comment: PERF ORMED BY: [place] [address] PATHOLOGIST [employer] DAMIÁN DOSHI M.D. Performed By: #### A DDONUAPLUS #### [place] [address] [place] NITRITE,URINE Negative Normal Negative [facility] Comment on above: Order Comment: Comme nt c/o urinary symptoms or increased blood pressure Name Collection Type:: Voided Performed By: #### A DDONUAPLUS #### [address] OCCULT BLOOD,URINE 3+ Normal Negative [facility] Comment on above: Order Comment: Comme nt c/o urinary symptoms or increased blood pressure Name Collection Type:: Voided Result Comment: PERF ORMED BY: [place] [address] PATHOLOGIST [employer] DAMIÁN DOSHI M.D. Performed By: #### A DDONUAPLUS #### [place] [address] [place] PROTEIN,URINE Negative Normal Negative [facility] Comment on above: Order Comment: Comme nt c/o urinary symptoms or increased blood pressure Name Collection Type:: Voided Performed By: #### A DDONUAPLUS #### [place] [address] [place] RBC,Urine 1-2 Normal 0-4 [facility] Comment on above: Order Comment: Comme nt c/o urinary symptoms or increased blood pressure Name Collection Type:: Voided Performed By: #### A DDONUAPLUS #### [place] [address] [place] SPECIFICY GRAVITY,URINE 1.017 Normal 1.001-1.030 [facility] Comment on above: Order Comment: Comme nt c/o urinary symptoms or increased blood pressure Name Collection Type:: Voided Performed By: #### A DDONUAPLUS #### [address] [address] [place] Squamous Epithelial Cell,Urine 1-2 Normal 0-2 [facility] Comment on above: Order Comment: Comme nt c/o urinary symptoms or increased blood pressure Name Collection Type:: Voided Performed By: #### A DDONUAPLUS #### [facility] [address] [place] [address] UROBILINOGEN,URINE Normal Normal Normal [facility] Comment on above: Order Comment: Comme nt c/o urinary symptoms or increased blood pressure Name Collection Type:: Voided Performed By: #### A DDONUAPLUS #### [facility] [address] [place] [address] WBC,Urine 1-2 Normal 0-4 [facility] Comment on above: Order Comment: Comme nt c/o urinary symptoms or increased blood pressure Name Collection Type:: Voided Performed By: #### A DDONUAPLUS #### [facility] [address] [place] [address] Epithelial cells.squamous [# /area] in Urine sediment by Automated countOrdered By: Eduardo Cruz on 12-02-2024 Epithelial cells.squamous Auto (Urine sed) [#/Area] 1-2 [HPF] 0-2 [facility] Erythrocytes [#/area] in Uri ne sediment by Automated countOrdered By: Eduardo Cruz on 12-02-2024 RBC Auto (Urine sed) [#/Area] 1-2 [HPF] 0-4 [facility] Glucose [Mass/volume] in Uri ne by Test stripOrdered By: Eduardo Cruz on 12-02-2024 Glucose Test strip (U) [Mass/Vol] Normal mg/dL Normal [facility] Hemoglobin Test strip Ql (U) Ordered By: Eduardo Cruz on 12-02-2024 Hemoglobin Ql (U) 3+ High Negative [facility] Hyaline casts [#/area] in Ur ine sediment by Automated countOrdered By: Eduardo Cruz on 12-02-2024 Hyaline casts Auto (Urine sed) [#/Area] None [LPF] 0-8 [facility] Ketones [Presence] in Urine by Test stripon 12-02-2024 Ketones Ql (U) Negative Normal Negative [facility] Comment on above: Order Comment: Comme nt c/o urinary symptoms or increased blood pressure Name Collection Type:: Voided Performed By: #### A DDONUAPLUS #### [address] Leukocyte esterase [Presence ] in Urine by Test stripon 12-02-2024 Leukocyte esterase Test strip Ql (U) Negative Normal Negative [facility] Comment on above: Order Comment: Comme nt c/o urinary symptoms or increased blood pressure Name Collection Type:: Voided Performed By: #### A DDONUAPLUS #### [address] Leukocytes [#/area] in Urine sediment by Automated countOrdered By: Eduardo Cruz on 12-02-2024 WBC Auto (Urine sed) [#/Area] 1-2 [HPF] 0-4 [facility] Mucus [Presence] in Urine by AutomatedOrdered By: Eduardo Cruz on 12-02-2024 Mucus Auto Ql (U) 1+ [LPF] Abnormal [facility] Nitrite Test strip Ql (U)Ord ered By: Eduardo Cruz on 12-02-2024 Nitrite Ql (U) Negative Negative [facility] Protein Test strip (U) [Mass /Vol]Ordered By: Eduardo Cruz on 12-02-2024 Protein (U) [Mass/Vol] Negative Negative [facility] Specific gravity Test strip (U) [Rel density]Ordered By: Eduardo Cruz on 12-02-2024 Specific gravity (U) [Rel density] 1.017 1.001-1.030 [facility] Urobilinogen Test strip (U) [Mass/Vol]Ordered By: Eduardo Cruz on 12-02-2024 Urobilinogen (U) [Mass/Vol] Normal mg/dL Normal [facility] pH of Urine by Test stripon 12-02-2024 pH (U) 5.5 [pH] Normal 5.0-9.0 [facility] Comment on above: Order Comment: Comme nt c/o urinary symptoms or increased blood pressure Name Collection Type:: Voided Performed By: #### A DDONUAPLUS #### [address] [place] [address] [facility] Basophils Auto (Bld) [#/Vol] Ordered By: ([place]) Elizabeth Osborne on 12-01-2024 Basophils (Bld) [#/Vol] 0.0 10 3/uL 0.0-0.1 [facility] Basophils/100 WBC Auto (Bld) Ordered By: ([place]) Elizabeth Thomason on 12-01-2024 Basophils/100 WBC (Bld) 0.3 % 0.2-2.0 [facility] Eosinophils/100 WBC Auto (Bl d)Ordered By: ([place]) Elizabeth Thomason on 12-01-2024 Eosinophils/100 WBC (Bld) 1.8 % 0.9-7.0 [facility] Erythrocyte distribution wid th Auto (RBC) [Ratio]Ordered By: ([place]) Elizabeth Osborne on 12-01-2024 Erythrocyte distribution width (RBC) [Ratio] 14.0 % 11.0-15.0 [facility] Globulin Calc (S) [Mass/Vol] Ordered By: (Owens) Elizabeth Osborne on 12-01-2024 Globulin (S) [Mass/Vol] 3.6 g/dL [facility] Glomerular filtration rate ( GFR) estimation in non- AmericanOrdered By: ([place]ens) Elizabeth Osborne on 12-01-2024 GFR/1.73 sq M.predicted among non-blacks MDRD (S/P/Bld) [Vol rate/Area] mL/min/{1.73_m2} >=60 mL/min/1.73m 2 [facility] Hematocrit Auto (Bld) [Volum e fraction]Ordered By: ([place]ens) Elizabeth Osborne on 12-01-2024 Hematocrit (Bld) [Volume fraction] 38.0 % 36.0-48.0 [facility] Hemoglobin [Mass/volume] in BloodOrdered By: ([place]) Elizabeth Osborne on 12-01-2024 Hemoglobin (Bld) [Mass/Vol] 13.0 g/dL 12.0-16.0 [facility] Laboratory - Chemistry and C hemistry - challengeOrdered By: (Diya Elizabeth Osborne on 12-01-2024 Bilirubin Ql (U) Negative NEGATIVE [facility] Glucose (U) [Mass/Vol] Negative NEGATIVE [facility] Ketones Ql (U) Negative NEGATIVE [facility] pH (U) 6.0 [pH] 5.0-9.0 [facility] Specific gravity (U) [Rel density] 1.025 1.005-1.025 [facility] Urobilinogen Qn (U) 1.0 {Fabián'U}/dL 0.2-1.0 [facility] Albumin [Mass/Vol] 3.1 g/dL Low 3.4-5.0 [facility] ALP [Catalytic activity/Vol] 45 U/L Low 46-116 [facility] ALT [Catalytic activity/Vol] 20 U/L 14-59 [facility] AST [Catalytic activity/Vol] 14 U/L Low 15-37 [facility] Bilirubin [Mass/Vol] 0.4 mg/dL 0.2-1.0 [facility] Calcium [Mass/Vol] 8.6 mg/dL 8.5-10.1 [facility] Chloride [Moles/Vol] 106 mmol/L 98-107 [facility] CO2 [Moles/Vol] 25.7 mmol/L 21.0-32.0 [facility] Creatinine [Mass/Vol] 0.37 mg/dL Low 0.55-1.02 [facility] GFR/1.73 sq M.predicted MDRD (S/P/Bld) [Vol rate/Area] mL/min/{1.73_m2} >=60 mL/min/1.73m 2 [facility] Glucose [Mass/Vol] 61 mg/dL Low 74-106 [facility] Potassium [Moles/Vol] 3.9 mmol/L 3.5-5.1 [facility] Protein [Mass/Vol] 6.7 g/dL 6.4-8.2 [facility] Sodium [Moles/Vol] 139 mmol/L 136-145 [facility] Urea nitrogen [Mass/Vol] 3.0 mg/dL Low 7.0-18.0 [facility] Urea nitrogen/Creatinine [Mass ratio] 8.1 mg/mg [facility] Laboratory - Hematology and Cell countsOrdered By: Elizabeth Osborne ([place]) on 12-01-2024 Immature granulocytes/100 WBC (Bld) 1.0 % High 0.0-0.5 [facility] Laboratory - Specimen inform ationOrdered By: Elizabeth Osborne ([place]) on 12-01-2024 Appearance (U) CLEAR CLEAR [facility] Color (U) LT. YELLOW YELLOW [facility] Laboratory - UrinalysisOrder ed By: Elizabeth Osborne ([place]) on 12-01-2024 Leukocyte esterase Test strip Ql (U) Negative NEGATIVE [facility] Nitrite Ql (U) Negative NEGATIVE [facility] Protein Ql (U) Negative NEG/TRACE [facility] Leukocytes [#/volume] correc terry for nucleated erythrocytes in Blood by Automated counOrdered By: Elizabeth Osborne ([place]) on 12-01-2024 WBC corrected for nucl RBC Auto (Bld) [#/Vol] 10.0 10 3/uL 4.0-11.0 [facility] Lymphocytes Auto (Bld) [#/Vo l]Ordered By: Elizabeth Osborne ([place]) on 12-01-2024 Lymphocytes (Bld) [#/Vol] 2.2 10 3/uL 1.2-3.8 [facility] Lymphocytes/100 WBC Auto (Bl d)Ordered By: Elizabeth Osborne ([place]) on 12-01-2024 Lymphocytes/100 WBC (Bld) 22.1 % 20.5-60.0 [facility] MCH Auto (RBC) [Entitic mass ]Ordered By: Elizabeth Osborne ([place]) on 12-01-2024 MCH (RBC) [Entitic mass] 29.8 pg 26.7-34.0 [facility] [facility] MCHC Auto (RBC) [Mass/Vol]Or dered By: Elizabeth Osborne ([place]) on 12-01-2024 MCHC (RBC) [Mass/Vol] 34.2 g/dL 29.9-35.2 [facility] MCV Auto (RBC) [Entitic vol] Ordered By: (Ow[place]) Elizabeth Thomason on 12-01-2024 MCV (RBC) [Entitic vol] 87.2 fL 81.0-99.0 [facility] Monocytes Auto (Bld) [#/Vol] Ordered By: (Owens) Elizabethnura Thomason on 12-01-2024 Monocytes (Bld) [#/Vol] 0.7 10 3/uL 0.3-0.8 [facility] Monocytes/100 WBC Auto (Bld) Ordered By: (Owens) Elizabeth India on 12-01-2024 Monocytes/100 WBC (Bld) 6.5 % 1.7-12.0 [facility] Neutrophils Auto (Bld) [#/Vo l]Ordered By: (Owens) Elizabeth [place] on 12-01-2024 Neutrophils (Bld) [#/Vol] 6.9 10 3/uL High 1.4-6.5 [facility] Neutrophils/100 WBC Auto (Bl d)Ordered By: (Owens) Elizabeth [place] on 12-01-2024 Neutrophils/100 WBC (Bld) 68.3 % 43.0-75.0 [facility] No Panel InformationOrdered By: (Roman) Elizabethnura Thomason on 12-01-2024 Urine Microscopic Review NO [facility] Urine Occult Blood Negative NEGATIVE [facility] Eosinophils # (Auto) 0.2 10 3/uL 0.0-0.7 [facility] Immature Granulocyte # (Auto) 0.10 10 3/uL High 0.00-0.03 [facility] Platelet mean volume Auto (B ld) [Entitic vol]Ordered By: (Owens) Elizabethnura Thomason on 12-01-2024 Platelet mean volume (Bld) [Entitic vol] 8.3 fL Low 9.5-13.5 [facility] Platelets Auto (Bld) [#/Vol] Ordered By: (Owens) Elizabeth India on 12-01-2024 Platelets (Bld) [#/Vol] 177 10 3/uL 150-450 [facility] RBC Auto (Bld) [#/Vol]Ordere d By: (Diya Elizabeth Osborne on 12-01-2024 RBC (Bld) [#/Vol] 4.36 10 6/uL 4.20-5.40 [facility] Serum or plasma albumin/glob ulin mass ratioOrdered By: (Owens) Elizabeth Osborne on 12-01-2024 Albumin/Globulin [Mass ratio] 0.9 {ratio} [facility] Serum or plasma anion gap de terminationOrdered By: (Owens) Elizabeth Osborne on 12-01-2024 Anion gap [Moles/Vol] 11.2 mmol/L [facility] Basophils Auto (Bld) [#/Vol] Ordered By: Chris Dickerson on 11-30-2024 Basophils (Bld) [#/Vol] 0.0 10 3/uL 0.0-0.1 [facility] Basophils/100 WBC Auto (Bld) Ordered By: Chris Dickerson on 11-30-2024 Basophils/100 WBC (Bld) 0.2 % 0.2-2.0 [facility] Eosinophils/100 WBC Auto (Bl d)Ordered By: Chris Dickerson on 11-30-2024 Eosinophils/100 WBC (Bld) 1.7 % 0.9-7.0 [facility] Erythrocyte distribution wid th Auto (RBC) [Ratio]Ordered By: Chris Dickerson on 11-30-2024 Erythrocyte distribution width (RBC) [Ratio] 14.1 % 11.0-15.0 [facility] Globulin Calc (S) [Mass/Vol] Ordered By: Chris Dickerson on 11-30-2024 Globulin (S) [Mass/Vol] 3.3 g/dL [facility] Glomerular filtration rate ( GFR) estimation in non- AmericanOrdered By: Chris Dickerson on 11-30-2024 GFR/1.73 sq M.predicted among non-blacks MDRD (S/P/Bld) [Vol rate/Area] mL/min/{1.73_m2} >=60 mL/min/1.73m 2 [facility] Hematocrit Auto (Bld) [Volum e fraction]Ordered By: Chris Dickerson on 11-30-2024 Hematocrit (Bld) [Volume fraction] 36.2 % 36.0-48.0 [facility] Hemoglobin [Mass/volume] in BloodOrdered By: Chris Dickerson on 11-30-2024 Hemoglobin (Bld) [Mass/Vol] 12.6 g/dL 12.0-16.0 [facility] Laboratory - Chemistry and C hemistry - challengeOrdered By: Chris Dickerson on 11-30-2024 Bilirubin Ql (U) Negative NEGATIVE [facility] Glucose (U) [Mass/Vol] Negative NEGATIVE [facility] Ketones Ql (U) Negative NEGATIVE [facility] pH (U) 6.0 [pH] 5.0-9.0 [facility] Specific gravity (U) [Rel density] 1.015 1.005-1.025 [facility] Urobilinogen Qn (U) 1.0 {Fabián'U}/dL 0.2-1.0 [facility] Albumin [Mass/Vol] 3.1 g/dL Low 3.4-5.0 [facility] ALP [Catalytic activity/Vol] 47 U/L 46-116 [facility] ALT [Catalytic activity/Vol] 20 U/L 14-59 [facility] AST [Catalytic activity/Vol] 12 U/L Low 15-37 [facility] Bilirubin [Mass/Vol] 0.3 mg/dL 0.2-1.0 [facility] Bilirubin.direct [Mass/Vol] 0.1 mg/dL 0.0-0.2 [facility] Calcium [Mass/Vol] 8.8 mg/dL 8.5-10.1 [facility] Chloride [Moles/Vol] 108 mmol/L High 98-107 [facility] CO2 [Moles/Vol] 26.0 mmol/L 21.0-32.0 [facility] Creatinine [Mass/Vol] 0.32 mg/dL Low 0.55-1.02 [facility] GFR/1.73 sq M.predicted MDRD (S/P/Bld) [Vol rate/Area] mL/min/{1.73_m2} >=60 mL/min/1.73m 2 [facility] Glucose [Mass/Vol] 74 mg/dL 74-106 [facility] Potassium [Moles/Vol] 4.1 mmol/L 3.5-5.1 [facility] Protein [Mass/Vol] 6.4 g/dL 6.4-8.2 [facility] Sodium [Moles/Vol] 142 mmol/L 136-145 [facility] Urate [Mass/Vol] 3.0 mg/dL 2.6-6.0 [facility] Urea nitrogen [Mass/Vol] 7.0 mg/dL 7.0-18.0 [facility] Urea nitrogen/Creatinine [Mass ratio] 21.9 mg/mg [facility] Laboratory - Hematology and Cell countsOrdered By: Chris Dickerson on 11-30-2024 Immature granulocytes/100 WBC (Bld) 0.7 % High 0.0-0.5 [facility] Laboratory - Specimen inform ationOrdered By: Chris Dickerson on 11-30-2024 Appearance (U) CLEAR CLEAR [facility] Color (U) LT. YELLOW YELLOW [facility] Laboratory - UrinalysisOrder ed By: Chris Dickerson on 11-30-2024 Leukocyte esterase Test strip Ql (U) SMALL Abnormal NEGATIVE [facility] Mucus Ql (Urine sed) TRACE Abnormal NONE SEEN [facility] Nitrite Ql (U) Negative NEGATIVE [facility] Protein Ql (U) Negative NEG/TRACE [facility] Leukocytes [#/volume] correc terry for nucleated erythrocytes in Blood by Automated counOrdered By: Chris Dickerson on 11-30-2024 WBC corrected for nucl RBC Auto (Bld) [#/Vol] 8.7 10 3/uL 4.0-11.0 [facility] Lymphocytes Auto (Bld) [#/Vo l]Ordered By: Chris Dickerson on 11-30-2024 Lymphocytes (Bld) [#/Vol] 2.0 10 3/uL 1.2-3.8 [facility] Lymphocytes/100 WBC Auto (Bl d)Ordered By: Chris Dickerson on 11-30-2024 Lymphocytes/100 WBC (Bld) 22.9 % 20.5-60.0 [facility] MCH Auto (RBC) [Entitic mass ]Ordered By: Chris Dickerson on 11-30-2024 MCH (RBC) [Entitic mass] 30.0 pg 26.7-34.0 [facility] MCHC Auto (RBC) [Mass/Vol]Or dered By: Chris Dickerson on 11-30-2024 MCHC (RBC) [Mass/Vol] 34.8 g/dL 29.9-35.2 [facility] MCV Auto (RBC) [Entitic vol] Ordered By: Chris Dickerson on 11-30-2024 MCV (RBC) [Entitic vol] 86.2 fL 81.0-99.0 [facility] Monocytes Auto (Bld) [#/Vol] Ordered By: Chris Dickerson on 11-30-2024 Monocytes (Bld) [#/Vol] 0.6 10 3/uL 0.3-0.8 [facility] Monocytes/100 WBC Auto (Bld) Ordered By: Chris Dickerson on 11-30-2024 Monocytes/100 WBC (Bld) 7.2 % 1.7-12.0 [facility] Neutrophils Auto (Bld) [#/Vo l]Ordered By: Chris Dickerson on 11-30-2024 Neutrophils (Bld) [#/Vol] 5.9 10 3/uL 1.4-6.5 [facility] Neutrophils/100 WBC Auto (Bl d)Ordered By: Chris Dickerson on 11-30-2024 Neutrophils/100 WBC (Bld) 67.3 % 43.0-75.0 [facility] No Panel InformationOrdered By: Chris Dickerson on 11-30-2024 Urine Bacteria MODERATE #/HPF Abnormal NONE SEEN [facility] Urine Culture Reflexed YES-[facility] Urine Occult Blood Negative NEGATIVE [facility] Urine Other Casts NONE SEEN #/LPF NONE SEEN [facility] Urine Other Crystals None Seen #/HPF None Seen [facility] Urine RBC 0-2 #/HPF 0-2 [facility] Urine Squamous Epithelial Cells FEW #/LPF Abnormal NONE/RARE [facility] Urine WBC 0-2 #/HPF Abnormal NONE SEEN [facility] Eosinophils # (Auto) 0.2 10 3/uL 0.0-0.7 [facility] Immature Granulocyte # (Auto) 0.06 10 3/uL High 0.00-0.03 [facility] Platelet mean volume Auto (B ld) [Entitic vol]Ordered By: Chris Dickerson on 11-30-2024 Platelet mean volume (Bld) [Entitic vol] 8.7 fL Low 9.5-13.5 [facility] Platelets Auto (Bld) [#/Vol] Ordered By: Chris Dickerson on 11-30-2024 Platelets (Bld) [#/Vol] 185 10 3/uL 150-450 [facility] RBC Auto (Bld) [#/Vol]Ordere d By: Chris Dickerson on 11-30-2024 RBC (Bld) [#/Vol] 4.20 10 6/uL 4.20-5.40 [facility] Serum or plasma albumin/glob ulin mass ratioOrdered By: Chris Dickerson on 11-30-2024 Albumin/Globulin [Mass ratio] 0.9 {ratio} [facility] Serum or plasma anion gap de terminationOrdered By: Chris Dickerson on 11-30-2024 Anion gap [Moles/Vol] 12.1 mmol/L [facility] Urine Cultureon 11-30-2024 Bacteria identified Cx Nom (U) 50,000 colonies/ml mixed bacterial skin contaminants 2 Days PERFORMED BY: [facility] [address] [place] [address] PATHOLOGIST [employer] DAMIÁN DOSHI M.D. Normal [facility] Comment on above: Performed By: #### C UU #### [facility] [address] [place] [address] RECURRENT VAGINITIS (HTRX)on 11-21-2024 ATOPOBIUM VAGINAE 0 [...] [facility] Alpha-fetoprotein (AFP) kelly urement ([id number])Ordered By: Les Martinez on 11-20-2024 AFP [MoM] 0.87 . [facility] Assess gestational ageOrdere d By: Les Martinez on 11-20-2024 Gestational age 18.0 weeks . [facility] Estimation of maternal age-s pecific risk of Down syndrome birthOrdered By: Les Martinez on 11-20-2024 [age] [Time] [age] . [facility] Insulin dependent diabetes m ellitus detectionOrdered By: Les Martinez on 11-20-2024 Insulin dependent diabetes mellitus Ql No . [facility] Interpretation of serum or p lasma second trimester quad maternal screen (narrative reOrdered By: Les Martinez on 11-20-2024 Second trimester quad maternal screen Gonzales [Interp] Comment . [facility] Comment on above: Interpretation: Scre en NegativeThis [...] quad maternal screen Gonzales [Interp] Negative . [facility] Laboratory - Chemistry and C hemistry - challengeOrdered By: Les Martinez on 11-20-2024 TSH Qn 1.702 m[IU]/L 0.358-3.740 [facility] No Panel InformationOrdered By: Les Martinez on 11-20-2024 AFP Triple Screen Comment Comment . [facility] Comment on above: Gisel Gandhi , Ph.D., DABCCDirectorReferences: Available Upon Request.Multiples Of Median Cutoffs For AFP ElevationsSingleton 2.5 Black 2.8IDD 2.0 Twins 4.5 Abbreviation DefinitionsIDD - Insulin Dep DiabetesOSBR - Open Spina Bifida RiskFor further inquiries contact [employer] at [phone].This test was developed and its performance characteristicsdetermined by [facility]. It has not been cleared or approvedby the Food and Drug Administration.Performed at: [facility] [id number] [place], [place] [id number] Director: Lorena Ellis [facility], Phone: [phone] Alpha Fetoprotein Results Received Report . [facility] Gestational Age Calculation Method Ultrasound . [facility] Comment on above: 18.0 on 11/20/2024Re calculations are not recommended when gestational datingby LMP and ultrasound are within 10 days. Maternal Quad Test Risk 55092 . [facility] Maternal Race Other . [facility] Multiple No . [facility] Serum or plasma [id number] protein measurement (mass/volume)Ordered By: Les Martinez on 11-20-2024 AFP [Mass/Vol] 27.6 ng/mL . [facility] Urinalysis macro (dipstick) panel (U)on 11-20-2024 Bilirubin, UA Negative Negative - 4(70) +++ mg/dL [facility] Blood, UA Negative Negative - 50 Yehuda/mcL [facility] Clarity, UA Clear [facility] Color, UA Yellow [facility] Glucose, UA Negative Negative - 1999(110) ++++ mg/dL [facility] Interpretation and review of laboratory results Abnormal [facility] Ketones, UA Negative Negative - 160(16) ++++ mg/dL [facility] Leukocytes, UA 2+ Negative - 500+++ Kourtney/mcL [facility] Nitrite, UA Negative Negative - Positive [facility] pH, UA 8 5 - 9 [facility] Protein, UA Negative Negative - 1999(20) ++++ mg/dL [facility] Spec Grav, UA 1.01 1 - 1.03 [facility] Urobilinogen, UA 1.0 0.2 - 12 mg/dL [facility] Laboratory - Chemistry and C hemistry - challengeOrdered By: Chris Dickerson on 11-17-2024 Bilirubin Ql (U) Negative NEGATIVE [facility] Glucose (U) [Mass/Vol] Negative NEGATIVE [facility] Ketones Ql (U) Negative NEGATIVE [facility] pH (U) 7.5 [pH] 5.0-9.0 [facility] Specific gravity (U) [Rel density] 1.010 1.005-1.025 [facility] Urobilinogen Qn (U) 1.0 {Fabián'U}/dL 0.2-1.0 [facility] Laboratory - Specimen inform ationOrdered By: Chris Dickerson on 11-17-2024 Appearance (U) CLEAR CLEAR [facility] Color (U) LT. YELLOW YELLOW [facility] Laboratory - UrinalysisOrder ed By: Chris Dickerson on 11-17-2024 Leukocyte esterase Test strip Ql (U) Negative NEGATIVE [facility] Mucus Ql (Urine sed) NONE SEEN NONE SEEN [facility] Nitrite Ql (U) Negative NEGATIVE [facility] Protein Ql (U) Negative NEG/TRACE [facility] No Panel InformationOrdered By: Chris Dickerson on 11-17-2024 Urine Bacteria TRACE #/HPF Abnormal NONE SEEN [facility] Urine Culture Reflexed NO [facility] Urine Occult Blood Negative NEGATIVE [facility] Urine Other Casts NONE SEEN #/LPF NONE SEEN [facility] Urine Other Crystals None Seen #/HPF None Seen [facility] Urine RBC NONE SEEN #/HPF 0-2 [facility] Urine Squamous Epithelial Cells RARE #/LPF NONE/RARE [facility] Urine WBC NONE SEEN #/HPF NONE SEEN [facility] Ultrasound - Officeon 2024 Radiology Study observation (narrative) [facility] Urinalysis macro (dipstick) panel (U)on 10-22-2024 Bilirubin, UA Negative Negative - 4(70) +++ mg/dL [facility] Blood, UA Negative Negative - 50 Yehuda/mcL [facility] Clarity, UA Clear [facility] Color, UA Yellow [facility] Glucose, UA Negative Negative - 1999(110) ++++ mg/dL [facility] Interpretation and review of laboratory results Normal [facility] Ketones, UA Negative Negative - 160(16) ++++ mg/dL [facility] Leukocytes, UA Negative Negative - 500+++ Kourtney/mcL [facility] Nitrite, UA Negative Negative - Positive [facility] pH, UA 7 5 - 9 [facility] Protein, UA Negative Negative - 1999(20) ++++ mg/dL [facility] Spec Grav, UA 1.01 1 - 1.03 [facility] Urobilinogen, UA 1.0 0.2 - 12 mg/dL [facility] Appearance of UrineOrdered B y: Kassidy Arriaza on 10-18-2024 Appearance (U) Clear Normal Clear [facility] Comment on above: Order Comment: Name Collection Type:: Clean-Voided Midstream Performed By: #### U A, CUU #### [facility] [address] Bilirubin Test strip Ql (U)O rdered By: Kassidy Arriaza on 10-18-2024 Bilirubin Ql (U) Negative Negative [facility] Chlamydia/GC Amplificationon 10-18-2024 Chlamydia Trachomotis, AC Negative Normal Negative [facility] Comment on above: Order Comment: SOURC E OF SPECIMEN: Genital Performed By: #### G CCHLAMAMP #### [facility] , #### CUGEN #### [facility] [address] Neisseria Gonorrhoeae, AC Negative Normal Negative [facility] Comment on above: Order Comment: SOURC E OF SPECIMEN: Genital Result Comment: Perf ormed at: =G - [facility] [address] [place] [id number] Fabric Sourcer: Dagmar Love MD, Phone: [phone] PERFORMED BY: [place] [address] PATHOLOGIST [employer] DAMIÁN DOSHI M.D. Performed By: #### G CCHLAMAMP #### [facility] , #### CUGEN #### [address] Color of Urine by AutoOrdere d By: Kassidy Arriaza on 10-18-2024 Color (U) Colorless Normal Yellow [facility] Comment on above: Order Comment: Name Collection Type:: Clean-Voided Midstream Performed By: #### U A, CUU #### [address] Genital Cultureon 10-18-2024 Genital Culture Genital Results Light Normal Urogenital Damián 2 Days No More GC Specimen not tested for Neisseria gonorrheae PERFORMED BY: [place] [address] PATHOLOGIST [employer] DAMIÁN DOSHI M.D. Normal [facility] Comment on above: Performed By: #### G CCHLAMAMP #### [facility] , #### CUGEN #### [facility] [address] [place] [address] Genital specimen bacteria id entification by aerobic cultureOrdered By: Kassidy Arriaza on 10-18-2024 Bacteria identified Aer cx Nom (Genital specimen) [facility] Glucose [Mass/volume] in Uri ne by Test stripOrdered By: Kassidy Arriaza on 10-18-2024 Glucose Test strip (U) [Mass/Vol] Normal mg/dL Normal [facility] Hemoglobin Test strip Ql (U) Ordered By: Kassidy Arriaza on 10-18-2024 Hemoglobin Ql (U) Negative Negative [facility] Ketones [Presence] in Urine by Test stripOrdered By: Kassidy Arriaza on 10-18-2024 Ketones Ql (U) Trace Normal Negative [facility] Comment on above: Order Comment: Name Collection Type:: Clean-Voided Midstream Performed By: #### U A, CUU #### [facility] [address] [place] [address] Laboratory - Microbiology an d Antimicrobial susceptibilityOrdered By: Kassidy Arriaza on 10-18-2024 C. trachomatis DNA AC+probe Ql (Unsp spec) Negative Negative [facility] N. gonorrhoeae DNA AC+probe Ql (Unsp spec) Negative Negative [facility] Comment on above: Performed at: =[address] [id number] Director: Dagmar Love MD, Phone: [phone] Leukocyte esterase [Presence ] in Urine by Test stripOrdered By: Kassidy Arriaza on 10-18-2024 Leukocyte esterase Test strip Ql (U) Negative Normal Negative [facility] Comment on above: Order Comment: Name Collection Type:: Clean-Voided Midstream Performed By: #### U A, CUU #### [facility] [address] [place] [address] Nitrite Test strip Ql (U)Ord ered By: Kassidy Arriaza on 10-18-2024 Nitrite Ql (U) Negative Negative [facility] Protein Test strip (U) [Mass /Vol]Ordered By: Kassidy Arriaza on 10-18-2024 Protein (U) [Mass/Vol] Negative Negative [facility] Specific gravity Test strip (U) [Rel density]Ordered By: Kassidy Arriaza on 10-18-2024 Specific gravity (U) [Rel density] 1.007 1.001-1.030 [facility] US OB <= 14 weeks fetuson US OB <= 14 weeks fetus [facility] [place] [address] Ultrasound Report Signed Patient: Jaz Sanders MR#: [id number] : 1995 Acct:[id number] Age/Sex: 29 / F ADM Date: 10/18/24 Loc: ER Room: Type: [facility] ER Attending Dr: Ordering Provider: Kassidy [...] Jr., D.ORenae 10/18/2024 2:21 PM Dictation Location: [place] [address] Tech: Natalie Haji Transcribed By: [facility] 10/18/24 1421 Dictated By: Sravan Dickinson Jr, DO 10/18/24 1419 Signed By: 10/18/24 1421 Normal [facility] Unlisted Lab Teston 10-19-19 [facility] Urinalysison 10-18-2024 Bilirubin,Urine Negative Normal Negative [facility] Comment on above: Order Comment: Name Collection Type:: Clean-Voided Midstream Performed By: #### U A, CUU #### [address] Glucose Ql (U) Normal Normal Normal [facility] Comment on above: Order Comment: Name Collection Type:: Clean-Voided Midstream Performed By: #### U A, CUU #### [place] [address] [place] Nitrite,Urine Negative Normal Negative [facility] Comment on above: Order Comment: Name Collection Type:: Clean-Voided Midstream Performed By: #### U A, CUU #### [address] Occult Blood,Urine Negative Normal Negative [facility] Comment on above: Order Comment: Name Collection Type:: Clean-Voided Midstream Result Comment: PERF ORMED BY: [place] [address] PATHOLOGIST [employer] DAMIÁN DOSHI M.D. Performed By: #### U A, CUU #### [place] [address] [place] Protein,Urine Negative Normal Negative [facility] Comment on above: Order Comment: Name Collection Type:: Clean-Voided Midstream Performed By: #### U A, CUU #### [address] Specificy [place],Urine 1.007 Normal 1.001-1.030 [facility] Comment on above: Order Comment: Name Collection Type:: Clean-Voided Midstream Performed By: #### U A, CUU #### [address] Urobilinogen,Urine Normal Normal Normal [facility] Comment on above: Order Comment: Name Collection Type:: Clean-Voided Midstream Performed By: #### U A, CUU #### [place] [address] [place] Urine Cultureon 10-18-2024 Bacteria identified Cx Nom (U) <9,000 colonies/ml mixed bacterial skin contaminants 2 Days PERFORMED BY: [place] [address] PATHOLOGIST [employer] DAMIÁN DOSHI M.D. Normal [facility] Comment on above: Performed By: #### U A, CUU #### [address] Urine cultureOrdered By: Jemima Arriaza on 10-18-2024 Bacteria identified Cx Nom (U) 2 Days [facility] Urobilinogen Test strip (U) [Mass/Vol]Ordered By: Kassidy Arriaza on 10-18-2024 Urobilinogen (U) [Mass/Vol] Normal mg/dL Normal [facility] pH of Urine by Test stripOrd ered By: Kassidy Arriaza on 10-18-2024 pH (U) 7.0 [pH] Normal 5.0-9.0 [facility] Comment on above: Order Comment: Name Collection Type:: Clean-Voided Midstream Performed By: #### U A, CUU #### [facility] [address] Unlisted Lab Teston 10-17-19 [employer] BOX TESTon 10-10-2024 BOX TEST SENT OUT iYogi BOX1 iYogi BOX2 10-10-24 [employer] [facility] BOX CLINISYCT [facility] Coding Summaryon 10-02-2024 Coding Summary HTMLBase 64 MtgynmkgJAf5eZk+PGhlYWQ +GJ4RQQLfM11lcRUqvI2sY0 NMTElOSywgQVBQTElOSyIgb eSnTZ9wnXJfJMXb IC8+YM6xPMSoTfznbBFsm7I 3gUB9E26ovc8wPCqhyVL9QY ImCeBlqxfxp0oiqGy4YNqdP mluOyBt ACVcbD15WII6xY52Jw20wXA tbQLge8xrgLe5XnOxQMNrAN W3hPvgKFpbd1MiLOSrG17oz HDyc2A3 RXDgtHvrsZKxKdJpbVY7cR2 jTVgdklzod9zvpqpwDkx6zo 00aOFej1W3oAO7C8JlwnF4J GJvbGQg PjvagQGMdJ3vxqgvg2yteem cKlAmGKDeTNl6PEr8ZUUldN itXtMoFJ37RFA4KAGwkcZwQ 2FsLWFs iZooGhY0j5X5Ma5MF9QYIry wJ5HHLEKFJQwyhGO+PC90cj 08W4CtYdymMfl0FDAzDAK1u VG2fS5s TDGaEIqft9M3vEC2M7RxkxF nlc9aj0hsXHUtVGwoQ56koT Uqq1N9AFMsfUQ9MNAwpVvnX iBzaG93 Oyc+CPRjzVgfu5MqAvqrx1j bj0nrcYl6RrzqYZGoqwFoaN zhTRY3d6IqUl5kOSRrgVX3n ZF3kU9d WtDsTkP8UOrxG080UpPopCS wWlvxR42qP8TksPO+PHRyPj u5SCNmqPvgZE5iH8JbTYVnk mctbGVm rDwyTB2jDCBfkcfhIWGokJ1 cSJZqH2a9TfUeYxC0VPdsJ5 CyKYNcojjxLu99zA3vSyCcM vM6YGpx I4QacxN2SPFlxNZlKDsvEOM 2G68ma7G8EIKoFEPjTCL1vQ W9hA2ifTxlqpuyoNCdaNxcd mVydGlj CCwoDPdzO778XBRdrZdwIbS vZGluZyBEYXRlOiAgMDYvMT cvMjAyNTwvdGQ+YEPkZEW2r WxlPSAn kZXsJTjdAj0anLwjcQmxWZ6 dQOEdkpuvZLSryK3sQZEsuZ BkxTceTQ2tPFMrxsncj975I iAxMHB0 HAQweSWaX9PvaS8tNlFjZZM sLTJdO4NfqWQbKCgfU083HD hgGwO4AGWgoaOsJ7WgWOCcr WduOiB0 u0Y0Xg0Cy9PliuskM3BdiJM kNvLaJbzpLUs2E1SrUfbycH I+QA66HOZsQU15OZf6KMX1b WxlPSdi RFOzY5ZryO1yTzAnRZIeDFW kOyc+PHRhYmxlIHdpZHRoPS pmSUFiRcAliSjzBQ8xKa3bQ GVyLWNv lBlvkADkPnOnr8wzYDKgMXw jAG4pwLcbM9MbsSP6QZVlp6 t1Wv14M36pX2PnmKH+PGNvb IZ8gBS6 iO8bKrJtXyV3GEdgH232WhY deNSmRnbpy1mao8uffRr4Ib D7MMQggtPjwGacCJX9c0CaO l95C21t IHdpZHRoPSIxNSUiIHZhbGl sut8lbX7lFz7+XHCqtOM7jH I5vI3qKrKlBpD1FAapA959R nRvcCIv Wuofz3izu5tmfFw5GsWmEAW irtYtdSzaXTB5f5ImTl94Z0 RszZhes1ZjVwj0go61cHAln 7K9aCP7 P3CgISKtozdglNYynHmlCN6 xJVKmoraeMTXqvR2aDFJvH7 c8MzNsPwT8YQpuC5WfsoV7W GJvbGQg WCRpoLDQwA6kkqesu0vjstz rFmWdKQVsBBo0NXw3ZFQdoO mgTkKgDED6UkI0HUK4cTPya S2wdYlo jopylP3jYqz+YLM6kJBubML BTC7lYoccdHU+UYHsURB4lU slIHxcJRNrzZ0iFVRpF8j2S iAwLjA1 WYmxH6SvxjL6DRYqbJQvWOQ ctAZYtC6uizfbc2vlzsnnYg LuMFEpYDy2ACj7YYZfcCneO iBsZWZ0 NuM1NAJ8jOBndH1sgOcrdpa heT2qZvn+YsbltKoqQRO7AC n0L8PvHdp6TLCdpVeoBL4qh GFkZGlu Ua8hgBkowPyhRN4lXFGgcsb uw233KhDrr2lqDHOgsINhYP qgPSR9W93or4B6TCHvGLCpX OK7qMO1 eY1swTkltbpakSOemVtfxqF tpRnhWVkjFEwnX557PFIlrD ygOvCrJAm9Z7XhSjq2ZSVhb AbzSG2f mXWxFXzcLj0rrUrakKeeZS7 eMECfxkxiz478PdFfx1srFZ JtgCIhIJpgWAS3Q44xh2I3N CMwMDAw LUB0gZB4mG5gmAznrqlloEE mdDsgdmVydGljYWwtYWxpZ2 04KLRayZcaDtLwzCq9O5CrM tw4QIYf uXpjQK8nfMYrNAirYf3sxPv nyYgoEV7dDDInkbueg223Nb Yxs0piADBpfHFuODixGSG6G 62jl3Z9 BBTdKITtLKA1hTT2kL2dhKh nbjogbGVmdDsgdmVydGljYW nmARicV536TNEgySyeMwXlm GllbnQg VOhiSNd9V0LgDwprhFK+PC9 3DUKiGC64aGHjmEDmz7nwyW s7BuXhBFGiHSN7nQmtPCdym 3JkZXIt G50szOGux8D8XBPoyMzxcRM jFkKdhJK8eE2sWIxywsjov4 hvvdwsFsfnv5ugfk88qH02C 29sIHdp ZHRoPSIzMCUiIHZhbGlnbj0 rdF1iNc6+HVJglZP7tYB2vL 7jTZUlFnN1NYsfH337IyGmp CIvPjxj a5zyf5bobJt3ItF5WZCionH tmCtkCKE1f8DjOo86S13lVE dpZHRoPSIyMCUiIHZhbGlnb h0cyU7t Ii8+EMImeLI8yLS6qW9xBdI eVmF9YWlfC565NaGgqVSxLl edZ33zO4NlhKH+SYTuQpl7P CBzdHls SI6gzBRbBYvxEt8sDHJ2VyQ oIdOuZEkqN6XwJHTzxglywf mxpRL7PSCsHSUuaB81Jr9pd DogMTBw bMVOuU8iqjyog6kdrbfxAeB qYWChCZq1MCl9CFDfqBpeHp ZqUUE0OsZ9FTO1uQOjyO8vm Glnbjog aV4pC2BdNTInpwegZv96zJ5 fCrJzMlR8SJkjEmz+TUNDQU 5OLCBIRUFUSEVSIEVMSVpBQ kVUSDwv dGQ+YBXfZUS3lQajTNqjRFL mvW0uFDHlM8m4LmAbAzF1HE gmO4EvYLKtfxuvXt32kR1gN iAwLjA1 RHyzG2TlfgM8PYQtqJSvWDo bMDF2W46hl9S9GWYrGPXfPS G3nOM2iZ1djEqiygxogKUho DsgdmVy nXkdJYyrGOruI704ALWyuFu kIcTfRnR2CpV4MEK0R5VwCp h9PIEbyNotVV5onRLvHUiwA c0biWbg qQbkZG9jRNMnmrlwSYNisR5 oHACllAFajAjtOS5pXGImfx ers225HlZzHDD8NSMihCQsF 7LxxR5o XxTjOUMnGJVuL7NmaDVnJUp hJ010EXbvSiY4HLKxdeCoS4 JzGULteRpxHyT5k7E8Yl5kT SBZZWFy czwvdGQ+NGQqQVG4uCcmEIc xRZKxuP5vGGZfS1o2NlCbCk O3FEyvM7GoMGNxspkpOb60t I5pFpNu NwD5ZMbdB2VrmvZ4CFPtrSF qCQkdVPJ6H47hh9Y8IICtMD VtZMW9qBQ2rC6pzWklkkdho GVmdDsg qvAvwAnpJHkoYNijI679IMJ vcDsnPkZFTUFMRTwvdGQ+PH KlWXL9mPplOVytYXWvpY8rE FImW8n7 KiBwOzJ4BGowK3IkDILttgv pAd94hM9mPtKtXvG9VHnvY1 TztrU9KPVbvXIgQSccUCI5P 34wr8T2 ZGWkMBHzILJ4vEZ1qN9vuHs nbjogbGVmdDsgdmVydGljYW jvPTtzT039KSQdpYfbFe1LH F27SF75 J2JaYdzcnQDmoOC+PHRhYmx lIHdpZHRoPScxMDAlJyBzdH srRI4dLi9sJDSzLWFagCxaw HNlOiBj d8jqHKIbTYehTC3ceDkwW2W paYE1VQYdc4m4Hk36K10vW2 JvdXA+KXBylVY7gLM0dN1pL zAlIiB2 BYhbM917ZtNpmLYdUuzpg2m jc1cmfWw3XlOxHEPttiWagN kcUNS4f6JrFa29D86dBEtrZ HRoPSIy EKXpXNKklNotwt7xeG6wBh6 +TDRlrLB4iEU3mB5zEzJrCt T6GWcpZ302ZcJqtYCaHxafU 12wK7Ut dXA+WGWbUtk4RFQyyBlbNV1 fcJPbAEsvDo9gIEA4XuDtEa UkKJqfL0AyZUKldtwdsqjbr FD9EQJe QKKenU63Bi7tzLorDk5xSTU sZKI5KDOjaIKcD2UmxI5kCy WyVNYqNPZbK4VznXCuRZlfD 246IGxl FoO6OAIedaTlT3EvDUKejZb vAlX2o3D2Gs8SzRjwmOYbNH 5bFbQxTPh5W2HdJju2QFXad IzyOP8p hXIpIIowAd8vkKuegBakGK7 nAEBhndgem042FsKlo5czSV IhjUAcBNnlWMK7J03gx4Y5D CMwMDAw FBP3oMG9dY9jsWptivdyhZJ mdDsgdmVydGljYWwtYWxpZ2 48JXBvoDjqMkWGNtd3R5QpO ms0JUNs aAkiMS2azHLrKXdnTe0jyNp vxZczAG0eCIWealvqj702Pi Idi6tfLWBbfFVmNYtfKKE6Y 97uv1M1 TOCnEKMnSTJ8yMH5dC1yuJx nbjogbGVmdDsgdmVydGljYW ckHXdcA037OMYmcUhxKp0MY qq8I6Ri Pgm1XESihJtxGB6apMMqQHe zNf9szHjfuGqnMJ6tAFFltj wxz820VgMkn6dzOETrmTRtC GltZXM7 V78dd8P8HANyJIZvAGX6zRA 4kC6zuHxrfbmtlZLbmYaqqt CsaYjfSFaqYJueC757SKKud DsnPlBh eWVyOjwvdGQ+MX66yx24G7Y iGkiqYzx2WHGeOTQ5uXZ9yI 2gYHRyBBpmj5X8aKX8Y6Vyy gKbkm0s b2x (more content not included)... Normal [facility] Compliance Drug Analysis, Ur LCon 10-02-2024 Summary LC FINAL Invalid Interpretation Code [facility] Comment on above: Result Comment: ===== [...] test is not intended to distinguish between nuwzy-1-ceeatammgviwhriiisba, the predominant form of THC in most herbal or marijuana-based products, and wuriq-1-chsscbogpscmipdqozpt. Lamotrigine PRESENT Acetaminophen PRESENT ===== Test Result Flag Units Ref Range Creatinine 45 mg/dL >=20 ===== Declared Medications: Medication list was not provided. ===== For clinical consultation, please call . ===== ToxAssure, ToxAssure FLEX or MAT drug testin -Technical component - Data analysis performed at [facility] [place], [address], [place] [address]. [phone]. Fabric Sourcer César Bains MD. ToxAssure, ToxAssure FLEX or MAT drug testing: -Technical component - Result certification performed at [facility] [place], [address], [place] [address]. [phone] [employer] Sourcer César Bains MD. Performed At: [employer] [address] [place] [address] [id number] Brendon Galan [facility] Ph:[phone] Performed By: #### 1 [id number] ####[facility] (DEFAULT)[address] [place] [address]5680 C Urineon 09-28-2024 C Urine Mixed skin, or urogenital damián. Clinically insignificant Normal [facility] Comment on above: Performed By: #### 6 [id number] ####[facility] (DEFAULT)[address] [place] [address]505 HBsAg Screen LCon 09-27-2024 HBsAg Screen LC Negative Invalid Interpretation Code Negative [facility] Comment on above: Result Comment: Perf ormed At: [address] [id number] J Luis Gray PhD Ph:[phone] Performed By: #### 1 [id number], 0030879, 4951841, 14695986, [id number], 21813331, [id number], [id number] ####[facility] (DEFAULT)[address] [place] [address] 65296 HIV 4th Gen Screen w Reflex LCon 09-27-2024 HIV Scr 4th Gen LC Non-Reactive Invalid Interpretation Code Non Reactive [facility] Comment on above: Result Comment: HIV- 1/HIV-2 antibodies and HIV-1 p24 antigen were NOT detected. There is no laboratory evidence of HIV infection. HIV Negative Performed At: [facility] [id number] J Luis Gray PhD Ph:[phone] Performed By: #### 1 [id number] #### [facility] (DEFAULT) [address] [place] [address] RPR, Rfx Qn RPR/Confirm TP L Con 09-27-2024 RPR LC Non-Reactive Invalid Interpretation Code Non Reactive [facility] Comment on above: Performed By: #### 1 [id number], 8562318, 8810022, 05212029, 1280444387, 79631194, 9112600652, 48550984 ####[facility] (DEFAULT)[address] [place] [address]125 Rubella Antibodies, IgG LCon 09-27-2024 Rubella Antibodies, IgG LC 2.78 index Invalid Interpretation Code Immune >0.99 [facility] Comment on above: Result Comment: Non- immune <0.90 Equivocal 0.90 - 0.99 Immune >0.99 Performed At: [facility] [id number] J Luis Gray PhD Ph:[phone] Performed By: #### 1 4442052, 4148303, 3788797, 53207414, [id number], 67965198, 0857734266, 85651388 ####[facility] (DEFAULT)[address] [place] [address] .Auto Diff 1on 09-26-2024 Auto Allen % 6 % Normal 04-29 [facility] Comment on above: Performed By: #### 1 [id number], 7414981, 6380708, 70153315, 7542152483, 53986648, 0796440414, 60552373 ####[facility] (DEFAULT)[address] [place] [address] 79991 Baso Abs# 0.0 x10 Normal 0.0-0.2 [facility] Comment on above: Performed By: #### 1 5882552, 4400750, 5152445, 71971344, 7850735382, 10960891, 2133774772, 36719482 ####[facility] (DEFAULT)[address] [place] [address] 49548 Basophils/100 WBC (Bld) 0.1 % Low 0.2-2.0 [facility] Comment on above: Performed By: #### 1 4971589, 9024905, 9344552, 78552607, 7324768229, 00030515, 4731753337, 88575373 ####[facility] (DEFAULT)[address] [place] [address] Eos Abs# 0.2 x10 Normal 0.0-0.4 [facility] Comment on above: Performed By: #### 1 5573996, 9978719, 3955654, 27639564, 1908423631, 08375963, 7028818285, 54494903 ####[facility] (DEFAULT)[address] [place] [address] 00643 Eosinophils/100 WBC (Bld) 2.0 % Normal 0.9-4.0 [facility] Comment on above: Performed By: #### 1 8295650, 0309800, 1391980, 19440803, 8087688995, 34630365, 7278035564, 52122843 ####[facility] (DEFAULT)[address] [place] [address] 13150 Lymph Abs# 2.0 x10 Normal 1.3-2.9 [facility] Comment on above: Performed By: #### 1 1000679, 6432552, 0361780, 26462697, 0837816001, 63089138, 3455411501, 32177991 ####[facility] (DEFAULT)[address] [place] [address] 72431 Lymphocytes/100 WBC (Bld) 26 % Normal 14-48 [facility] Comment on above: Performed By: #### 1 8936526, 2251290, 6275647, 81442986, 6840614283, 62792791, 9149597125, 29073941 ####[facility] (DEFAULT)[address] [place] [address] 09023 Allen Abs# 0.5 x10 Normal 0.0-0.8 [facility] Comment on above: Performed By: #### 1 8697508, 8201286, 9413177, 26017816, 0689985376, 21050849, 8164177587, 74471855 ####[facility] (DEFAULT)[address] [place] [address] 69745 Neut Abs# 5.1 x10 Normal 1.5-9.2 [facility] Comment on above: Performed By: #### 1 5171078, 2938159, 9540895, 96606989, 7655346111, 25993083, 5076786684, 23294881 ####[facility] (DEFAULT)[address] [place] [address] 11900 Neutrophils/100 WBC (Bld) 66 % Normal 44-88 [facility] Comment on above: Performed By: #### 1 2252374, 9494096, 1062025, 32662359, 4695176811, 17122166, 3395255615, 18574615 ####[facility] (DEFAULT)[address] [place] [address] ABORhon 09-26-2024 ABO and Rh group Nom (Bld) Hx Check: Not Found Anti-A: 4+ Anti-B: 0 Anti-D: 2+ DCon: NT A1: 0 B: 2+ ABORh Interp: A POS Invalid Interpretation Code [facility] Comment on above: Performed By: #### 1 1162645, 8015370, 9524357, 89775768, 1713527197, 03554640, 8428265807, 14510011 ####[facility] (DEFAULT)[address] [place] [address] 01115 ABSC Gelon 09-26-2024 ABSC Gel Negative Normal [facility] Comment on above: Performed By: #### 1 4117817, 6153972, 5741398, 91653457, 0748891143, 70782700, 9042896821, 71284405 ####[facility] (DEFAULT)[address] [place] [address] 43317 CBC w/ Auto Diffon Erythrocyte distribution width (RBC) [Ratio] 13.2 % Normal 11.5-15.0 [facility] Comment on above: Performed By: #### 1 1013322, 4117624, 5014199, 82993261, 5364704084, 98129722, 4861709079, 00289561 #### [facility] (DEFAULT) [address] [place] [address] 16280 Hematocrit (Bld) [Volume fraction] 39.9 % Normal 33.7-40.4 [facility] Comment on above: Performed By: #### 1 9338721, 6459506, 7280279, 78321643, 3187515808, 54854627, 9303203197, 32236517 #### [facility] (DEFAULT) [address] [place] [address] Hemoglobin (Bld) [Mass/Vol] 13.9 g/dL Normal 11.3-15.9 [facility] Comment on above: Performed By: #### 1 6097291, 2904788, 0439937, 46700752, 5052213513, 74319068, 7124485666, 74907298 #### [facility] (DEFAULT) [address] [place] [address] Man Diff? Auto Invalid Interpretation Code [facility] Comment on above: Performed By: #### 1 7189445, 2796653, 7061002, 84011949, 5645902240, 47765489, 2493399521, 58629866 #### [facility] (DEFAULT) [address] [place] [address] MCH (RBC) [Entitic mass] 29 pg Normal 24-34 [facility] Comment on above: Performed By: #### 1 0112066, 8909081, 2375209, 29213018, 9602892790, 99121166, 3947315421, 03066616 #### [facility] (DEFAULT) [address] [place] [address] MCHC (RBC) [Mass/Vol] 35 g/dL Normal 26-37 [facility] Comment on above: Performed By: #### 1 3262630, 0020431, 3922049, 79542362, 6935737839, 65510715, 3909124380, 85739452 #### [facility] (DEFAULT) [address] [place] [address] MCV (RBC) [Entitic vol] 84 fL Normal 81-100 [facility] Comment on above: Performed By: #### 1 3361309, 0987400, 5594090, 82803597, 9639268137, 47474877, 6472876819, 05436902 #### [facility] (DEFAULT) [address] [place] [address] 66352 Platelet 210 x10 Normal 138-427 [facility] Comment on above: Performed By: #### 1 0100199, 2641572, 6590945, 11275537, 8109673627, 95492099, 4927918322, 38949657 #### [facility] (DEFAULT) [address] [place] [address] 64764 Platelet mean volume (Bld) [Entitic vol] 6.3 fL Normal 6.3-10.2 [facility] Comment on above: Performed By: #### 1 3470878, 9622235, 2628087, 61671600, 6836038194, 63548517, 0738175773, 81518099 #### [facility] (DEFAULT) [address] [place] [address] RBC 4.76 x10 Normal 3.70-5.30 [facility] Comment on above: Performed By: #### 1 3548059, 2365588, 0734574, 62371414, 6633799207, 34794700, 9226007229, 52025923 #### [facility] (DEFAULT) [address] [place] [address] 20470 WBC 7.8 x10 Normal 3.5-10.5 [facility] Comment on above: Performed By: #### 1 6347189, 8166142, 6231803, 37455155, 5502154931, 56923200, 7276509710, 64213958 #### [facility] (DEFAULT) [address] [place] [address] 31089 HBV surface Ag IA Qlon 09-26 Hepatitis B Surface Antigen Negative [facility] HIV 1+2 Ab+HIV1 p24 Ag IA Ql on 09-26-2024 HIV 1&2 AB/AG Non-Reactive [facility] HgbA1c Standardon 09-26-2024 .Hb 13.1 Invalid Interpretation Code [facility] Comment on above: Performed By: #### 1 5230962, 7000548, 9532436, 56251409, 7215104413, 77739103, 3606021003, 74668906 ####[facility] (DEFAULT)[address] [place] [address] .Hgb A1c 0.38 g/dL Invalid Interpretation Code [facility] Comment on above: Performed By: #### 1 3099779, 8355656, 4526361, 95307078, 3509373887, 95397770, 4412233463, 39543910 ####[facility] (DEFAULT)[address] [place] [address] Glucose [Mass/Vol] 91 mg/dL Invalid Interpretation Code [facility] Comment on above: Performed By: #### 1 9470081, 5992651, 1028037, 69258893, 0002934921, 58259997, 4911126969, 97716255 ####[facility] (DEFAULT)[address] [place] [address] HbA1c (Bld) [Mass fraction] 4.8 % 4.0 - 6.0 % [facility] Comment on above: Performed By: #### 1 6501083, 2208608, 8358388, 57962154, 8065971258, 38810151, 6517472285, 13963153 ####[facility] (DEFAULT)[address] [place] [address] No Panel Informationon 09-26 [facility] Provider Orderson 09-26-2024 Provider Orders [id number] GTIFF Normal [facility] Rubella IGG immune statuson 09-26-2024 Rubella immune IgG 2.78 [facility] T. pallidum IgG+IgM IA Ql (S )on 09-26-2024 Syphilis Non-Reactive [facility] Type and screenon 09-26-2024 Abo/Rh(D) Positive [facility] Ultrasound - Officeon 2024 [facility] HCG ( test) Ql (U)o n 09-20-2024 Interpretation and review of laboratory results Abnormal [facility] Preg Test, Ur Positive Negative [facility] US OB TRANSVAGINALon 06-05-2 025 US OB TRANSVAGINAL EXAM: US OB [...] II, MD, PHD at 21-Sep-2024 08:26:46 AM [facility] Normal Not Available Comment on above: Order Comment: US OB TRANSVAGINAL No LMP recorded. Urinalysis macro (dipstick) panel (U)on 09-20-2024 Bilirubin, UA Negative Negative - 4(70) +++ mg/dL [facility] Blood, UA Negative Negative - 50 Yehuda/mcL [facility] Clarity, UA Clear [facility] Color, UA Yellow [facility] Glucose, UA Negative Negative - 2000(110) ++++ mg/dL [facility] Interpretation and review of laboratory results Normal [facility] Ketones, UA Negative Negative - 160(16) ++++ mg/dL [facility] Leukocytes, UA Trace Negative - 500+++ Kourtney/mcL [facility] Nitrite, UA Negative Negative - Positive [facility] pH, UA 6.5 5 - 9 [facility] Protein, UA Negative Negative - 1999(20) ++++ mg/dL [facility] Spec Grav, UA 1.025 1 - 1.03 [facility] Urobilinogen, UA 0.2 0.2 - 12 mg/dL [facility] CNNURSEon 09-03-2024 [facility] Nurse Visit (REIAV) JAZ SANDERS ([id number]) 1995 F Date Time Provider Department 09/03/24 10:40 AM US TECH 1 [facility] REJ REIAV During your visit today, we recorded the following information about you: Charisse Weaver, MELY.[employer] 09/03/2024 5:42 PM Signed Jaz Sanders here [...] 2024 5:39 PM Referring Provider: SHELLY HERNANDEZ [[id number]] Allergies As of Date: 09/03/2024 (Not on File) Date Reviewed: 08/20/2024 Reviewed by: Shelly Hernandez APRN.CNP - Fully Assessed Visit Diagnosis:Early stage of (HCC) [Z34.90] Order(s):OBSTETRIC ULTRASOUND [facility] [[id number]] Order #: [id number]. #:[id number] WPOINTQty: 1 Prescriptions as of 09/03/2024 - [...] Status:Closed by BRADFORD DOSS on 09/03/24 Normal [facility] Examination level ultrasound on 09-03-2024 Indication Viability, Repeat Impression - Single, live, intrauterine . - An intrauterine gestational sac with a yolk sac and pole is present. - Mellette rump length measurement is consistent with the [...] Read By: Bradford Doss M.D. MATERNAL MEDICINE [facility] Radiology Study observation (narrative) [facility] CNNURSEon 08-28-2024 [facility] Nurse Visit (REIBD) JAZ SANDERS ([id number]) 1995 F Date Time Provider Department 08/28/24 11:10 AM TECH 2 [facility] BEAC REIBD During your visit today, [...] Stacy Banuelos MD Referring Provider: SHELLY HERNANDEZ [[id number]] Allergies As of Date: 08/28/2024 (Not on File) Date Reviewed: 08/20/2024 Reviewed by: Shelly Hernandez APRN.CNP - Fully Assessed Visit Diagnosis: 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) [O09.811] Order(s):OBSTETRIC ULTRASOUND [facility] [[id number]] Order #: [id number]. #[id number] WPOINTQty: 1 Prescriptions as of 08/30/2024 - [...] Status:Closed by MIKEY HENLEY on 08/30/24 Normal [facility] Examination level ultrasound on 08-28-2024 Indication Viability Impression - Single, live, intrauterine . - An intrauterine gestational sac with a yolk sac and embryo is present. - Mellette rump length measurement is consistent with the [...] Read By: Mikey Torres M.D. MATERNAL MEDICINE [facility] Radiology Study observation (narrative) [facility] Xavier 08-24-2024 MIL Telephone (REIBD) JAZ SANDERS ([id number]) 1995 F Date Time Provider Department 08/24/24 [...] Date Reviewed: 08/20/2024 Reviewed by: Shelly Hernandez, [employer] - Fully Assessed Reason for Visit: Patient [...] Encounter Status:[facility]REIBD) SANDERSJAZ ANDERSON ([id number]) 1995 F Date Time Provider Department 08/23/24 SHELLY HERNANDEZ During your visit today, we recorded the following information about you: Angella Mccarthy 08/23/2024 10:39 AM Signed Name: Jaz Sanders called today. : 1995 (home) [phone] (cell) Reason for call: pt called today informing the nurse she has been experiencing pain of level 4 from 1-10. Pt has been experiencing pain for 2 day. 5 weeks today. The patients preferred pharmacy has been captured for this encounter? [facility] [employer] Shelly Hernandez, PICTURE H[employer]ER.[employer] 08/24/2024 5:58 PM Signed spoke with Jaz, [...] slot. Call to patient needed: no [employer], Lana 08/25/2024 8:37 AM Signed Pt is scheduled on 09/03/2024. Shelly Hernandez APRN.CNP 08/27/2024 11:51 AM Signed Addended by: SHELLY HERNANDEZ on: 08/27/2024 11:51 AM Modules accepted: Orders Allergies As of Date: 08/23/2024 (Not on File) Date Reviewed: 08/20/2024 Reviewed by: Shelly Hernandez APRN.CNP - Fully Assessed Reason for Visit: Pain [78] Primary Visit Diagnosis:Early stage of (HCC) [Z34.90] Order(s):OBSTETRIC ULTRASOUND [facility] [[id number]] Order #: [id number]: 1 FUTURE Prescriptions as of 08/27/2024 - [...] Encounter Status:Closed by SHELLY HERNANDEZ on 08/24/24 [facility] Coding Summaryon 08-22-2024 Coding Summary HTMLBase 64 CauoghxiKRo4oTi+PGhlYWQ +KB9VBOLdJ34lmLDxnT1eH8 NMTElOSywgQVBQTElOSyIgb iUnZZ4oiYGwHJSo IC8+QI4bOSVvBhqmgQBjn7V 3vRM7D75zoq7nINjqoAS1FS NjVmTsesrza2dsnXt5AFvuW mluOyBt NRYogR67LFU4cT21Zx84uOQ kuPShs1mubHt3RnGbMTWqIM W2iBmoUIxyn6BeYVDmJ41zd NVul7H9 HVLvtUrmmAImKvWorNR3gC6 qLWoufkhla4zakgdbNzd5uf 34qMOnr8I7vZF5K3GmijB1H GJvbGQg DxnkmAAHcU0ymiiwg7qyroo fChSrZJUtBVs5YNx4IEWwgM lmHtFkQX73DSY3PTBbteQrD 2FsLWFs zYksYiH4m3J8He6GA5SVXey cP5PYTDCZXMbrsGT+PC90cj 34N3CaJzxbDsc4BXXnEJZ9z IL2jG9i JTBtLZwzt3R8wYT2A4LwpkP uqh8ru3mtNLFcISdjZ58tnC Rjs5H8GLAtiSS9KDEgxKhlG iBzaG93 Oyc+CERwaYspu2IlVdrbv0n pi4bddTp1UbusNLGpqyLpkD cwFOP9w7IqPm3qCQBejGQ7n TN5vU3d RwVbFsM7EQzfA702NpNglPF bRmguU92aK1KcfOI+PHRyPj v3BIGacJvbEC6zG9DaVZZwo mctbGVm bIndIB5nRIJkqisvTZWkrA4 eTBDvK4s7UfBeZtO6ZSllK9 QxCWEidmejQy71sM4sMhLwY cC2OBha O3GoxeV4TIXrwISrJGgjUFZ 9M37dr6X4AFKlCFBsMTH0mV A3uO4mkMcyogwcvBEntZlzs mVydGlj CQprYBetL637UILinKwtZsN vZGluZyBEYXRlOiAgMDUvMD cvMjAyNTwvdGQ+FPMbUGP8y WxlPSAn tINyWPvtTc2iyYirxFweKL7 bRGArrfkiHVHoqK9cDZEtbZ HkbZviNT5lTRKpcpaaz958F iAxMHB0 CLSxtGYtR1WdsD8xOqHdEIE bMSHfS5AobQDxUPadE829YT itAeR6ZBWcyrUpL3TlIEWmz WduOiB0 k4N1Kk6Jj8QtfbhwZ9LzxAW iHmFvLkfqPCn8Z1AjLaxokU I+QJ04AQVyMT39SAt9SGO1f WxlPSdi ITWrV4MkmL5hLtPmHDJpLPI kOyc+PHRhYmxlIHdpZHRoPS ypSABmEzLmeIgsKR0zMn8jS GVyLWNv fLctlCQpStGtg7giRDNmYLf zNE3bdWrzC0NngEB4BSXfg0 f1Pa79O82vJ7CctUK+PGNvb QO9aTM5 gV7gCqZmXiP8ZDzjX524DsX vdSBlLqzgv4zox1yjvSa0Bz G3ZOCqcsYacDmiHCM6f8UzT m90M34e IHdpZHRoPSIxNSUiIHZhbGl rdv5wyF2kGt5+NYQboRE8nY J8oE6qJwQkLuD3COmkN881G nRvcCIv Cbiwe8xzl1ioaIg0KhZiVYS edjVvbOrrFKW4x9JfTo43T5 PgpSpss6KtNok4ff33iHGqz 1E2hIU4 V0ZqYHCqcxlhaPYvqJyqUI1 lPULtyxuxEPBkpY2dLVChA3 b5FkKnJxS8QJczZ3JihhQ1N GJvbGQg BDGiwVJLrV6ncakaq0htjco rXbPoRHIkKQs5VIa2KZVcaT jdLfJiAJS7NbZ3CZB7fTUss X1scZna wrxvrU6bYdk+FJR1hMVxxNA XNH1zYnaukWF+TRNhETT9xN hxNQehKKDxrQ1oOIJnT3h8H iAwLjA1 FWbbU1IduxY9BIOfvITwZNE ynDAOgR3cyqpvf2apgoybGv OjEZPhTCl0ATq3CINdaPdlC iBsZWZ0 FmT1QCP0gMGwjH2aiVfozgl lqN2zNia+OxjdmVmsXIR4PY i4V1GaDex3JQJayQqhMR6ra GFkZGlu Hi6bgOichUkaFR8qZAFcoca yq465DjDec1zrOUBvkSLrYZ xdYCN3L01kz4T3RAAuSJPvG FS7lWW3 gO5rtJhybtqszDCenMhadpL ntAoaABohPBrhM603MQPfaO kdWoXfKOw2V7XiWln4GEXpt KtnPX8m zCZzQAgdPd1jwCdmfIfsQR1 pOPYwcluce583VrUnt0emZU XpnGHjUZufVZD4P18sk0F2F CMwMDAw PFS7uCE0uH2zsYprdospbXF mdDsgdmVydGljYWwtYWxpZ2 59XHYzsMjeBbUpoAn2E8ZiE hf1BCIi nIjuFS0chGRkIJdhTl8dhSs glFrrOV1wBNDwevtgo962Vs Ggw0iqQAUssEMyCTvcHAR3R 94po3Y6 YPZoZILfSBC4eYP7vU9kgTp nbjogbGVmdDsgdmVydGljYW peLUkaK920ANAhxZbxFhVag GllbnQg JSjnLZu3P4LwXroqiTB+PC9 1PGZrIM18tNKbvWSlr1aiuH r4YuTgGQBjUVC8uJfsIAkaj 3JkZXIt Y15xqQHse0O2GCHbvPvhyHS vJnOvhVS5vJ8fKAxjbibhi1 mueckpPpdvh5mvjk17dA09D 29sIHdp ZHRoPSIzMCUiIHZhbGlnbj0 gdO5cQp6+GKImtZM2lVS9lG 2zYASjAoY6FJjqP310OwCkc CIvPjxj l2mmt6nqaEx7NvS1DZVdaxV whGstBSE4r8XaMq02J73eTR dpZHRoPSIyMCUiIHZhbGlnb t7oyE3m Ii8+PQTofHN5nJQ9sS5eInQ tKuD1EYuzE987QkPwxJGdKs vyK84nW3QozPC+FAHvBru0T CBzdHls EK0epMAoSCcqIh3tPIF5LuU iSzXpFLcaQ0OqYYWozptzoo yeeLO0WGOtRYWqcS77Oa8np DogMTBw cUVHuG3jzxhrq1dzjerpNsA kTBQhRMm9TTu9RVChwPguJy RjQXA9WzB9JYH9oMSwmO8dk Glnbjog vC0eV4EmQRNyrmadWo29wD5 xUrYhNqT8HBqaDgj+TUNDQU 5OLCBIRUFUSEVSIEVMSVpBQ kVUSDwv dGQ+FTZrONC7lZkcNHxbXOA dtX0vMUZrA3u4WiFrCiF9BJ mqK3IpFCHbgzluZb52vO7tH iAwLjA1 FCssD4PyauI1FKJkcUYdFXv vHPB5G86cs7U4HTKzYGMzFL E9gYN1fM9opBoosbtcrVSrl DsgdmVy wNxeEFxeATsaK491WZFeoPw vOaTsQxE4IrU8NTW2D8AtIe j6RHKjkLppFX7cxBAnUWyfQ r5usTda qGyfOH4jAILesuwiEGXipU4 pMMVayDJmfXpnYK6oDZLjus wjy657EsVdLDJ7RDCkkBXnP 6VyfL9m CoUvEJZfLOObR0NwpGSsNBs wA703MMqnTxB9PFUxopNoW5 OxWGUeoLktSyX4h6R8Fj0vC SBZZWFy czwvdGQ+KBBkGTC6xKnmDEl aHFXhyB7fRSGhY9j3XdCsNh G9ILdlR1UjEZJuvmupHu90c R1vXrJe XhQ0XNmiU2AieeS7WVYdlRM uMHuiEMX2Z38wk9N6GKMbHC PlLSL5cGG6aW4frPdcacjjg GVmdDsg ggVwtYmfLQhaKXliS921TYN vcDsnPkZFTUFMRTwvdGQ+PH CkNKN5qKimEAkhDGCtzC2aI KAkC6d9 ZlXfOvH4VOsmL1UuZTWfurr uCh02rH3mDqEiCyT2QKxuL6 JxdzE6CTZylPRtOWffEFR8C 50ne4C3 ELWyGEOmNFZ8mMS3oO4fgXm nbjogbGVmdDsgdmVydGljYW aoWXgaY379GEVdoAkwUr9HI N02NX13 Q0PiHmrzlNFlmKO+PHRhYmx lIHdpZHRoPScxMDAlJyBzdH qbKI2qWz1nDSHsNLKelDuqz HNlOiBj t9ifXBCeEXxrSQ1jwXpeX0N ekZB5ZAKzk9k8Os42I37wN9 JvdXA+FSEexUJ8jOM6nS8aS zAlIiB2 VVnkG052UzXqdOIsOlvxw4z aj6ihpPp7SySaPYXdmgFkwE whVYU1j0InUe13J18pAHgxO HRoPSIy ORNgUWSwiGaeau7cvE0gFn9 +JLWmaFV9wEH9zY7zGmHoDg B8HLgbG338MwDdxRQmLwknZ 93mE4Mg dXA+RZWkVwm2QPFsdYtjNL4 eoQByLKavBd4pHEC3LcYgUl CdCZkdW9PeYEMbkuzfdtnyd ZZ3BDUg UOTcfP33Rn8zfFffBe4oQSV dAYZ7KGNxkHIvY4DpfX8kJu YqDPHrMKZeA5WarZMjTJrfJ 246IGxl UkW2YPSgleShG6HdOLUsqDt gMqH9s8B5Ka1NfWshbQXzLL 9kEeYkHHq2W7ShAmi4HVOrc ZxqCI4f nSGtLKflOv3qbXdycJfdLO3 zFXLqgrkvn621GrBhv8ujOH HdaXZsVLqmPDG5T63gi5E5S CMwMDAw AFL2uKU3xF9bwMfkucekdLT mdDsgdmVydGljYWwtYWxpZ2 35XCZwoKmkNmCVHos9C6KoZ ix8PHUg eCqsAM8fxIZxMKdlDh2jmIo sbNlfZC4vTOVrwimwk701Ac Zxh7tsILXxvUTcEKkuWMK9S 44vh7T2 BGRrBQWfRNX0iFH7rM9wuAm nbjogbGVmdDsgdmVydGljYW pkDEzwB097VIQnsIyrUp2WJ ja8M6Xu Aop3KVZxhGqyQZ2ytGGwKTs zNu6opPhbuYccQS4hQPMudx gcn786VvVca0dgZMDsjOBdO GltZXM7 Q93pi5L0DSIlXVRvZQG6yCV 4kB2slFocnhrwwMHnhQcsse HgmWxvTAgmFNbyY267LHKlj DsnPlBh eWVyOjwvdGQ+RG77fp72C1R uTqnuZzv8IMIwYDE3lQV5sW 5mOCLbZYjnz8A4uNA2S1Vjo iUsbb6b b2x (more content not included)... [facility] Coding Summaryon 08-20-2024 Coding Summary HTMLBase 64 MjxtjtenWBb3uQu+PGhlYWQ +HP9VZTFdZ84xjADchR0oV9 NMTElOSywgQVBQTElOSyIgb nWlAG8eeKDpPIMz IC8+NW9sESSyUotfnWKip0J 2jPT5O23xjg4jQCqelAR4ND LwDpXwhmdfp1umcLp7WHxoD mluOyBt PBKvdJ56HSV4pL14Cg96wAF evDNjt3lujGj7RxGdFRLjUS V7nIjgAIkoy4BkOAExR93kf PZxm4T5 DIAhgVaapUVyBsHvvVK9tR1 gRGgyeoapl4qlazbjRzw0xr 71xBNal8W1kQE3H9JirbM2N GJvbGQg TnjvsNMCiB0rkojtv1fspyj lYiHaKMUwWLb6WWd4LLCpmC qmAoUdXB49MNR8CNAskkDkJ 2FsLWFs bOmcMnF6h5P6Dy4ZR5JYLxe xP7FHGUHWKMsqkEZ+PC90cj 11P6GoZuglWuh7QLGlQBI3w FD4vR6w JKEqVNtbn0Y8qOV6G2DuhkP wzc2ta4cqPXRlPEniF61rsL Ewt7N6MSKzaFO7CWPreOeoX iBzaG93 Oyc+ACRzbRcot6YnYmqnd8s tx3xssWf7DofnRGPdyoMbmK tdGCH6c7YmXl0vCGPplIA2e ZC7bE7n BgHwMdZ9TSdiN723PgJtwYX pOlitU40yV9VbaOF+PHRyPj g4FADgcKtaIQ3hL6LaIXScw mctbGVm aAehHD6hJFPelmixAFUhyF7 xBJIrN2o4DwKgOfB2BCupV3 FzXTGmilptIl22zG4rOeLaW rH6FUie I1KsvsM2YXOurPInBYjiYOF 1D31tn3L7YZEkAHOoJSF9wJ S5pW4pdOtmuqpmeOTvfJejq mVydGlj FPhjVPxwR555JWUlpUgwJkU vZGluZyBEYXRlOiAgMDUvMD UvMjAyNTwvdGQ+ROMxLPD8c WxlPSAn hTGpJRhbCi4lfKrmrWiaAB5 lRXFuynbfNJAghJ9yZWUtfP MvcMfnHH6yLXXjiwqkn620H iAxMHB0 PLZmgVJrH9IhaN9uRsJjFUA pFFEnG0NskLWbNImaE295GE ysUdD7JXLzqvNjN2RxJLAzm WduOiB0 c9B4Te1Jf0DkqafuD6QgqBD zZnNxJkrlSBq1R4XrJwctqK I+BE34OKHiLH99JUz0ZYD4t WxlPSdi RMXlE0KptG6jAeFkZZRmLLA kOyc+PHRhYmxlIHdpZHRoPS zgYQSyExCvbKxpKD4tXo6bM GVyLWNv vTepfSRsFiWdt9gwCAZtQKb rOD4bbRhdI7RdrBL2YCCmx5 r3Vg05P62hU9WhuNH+PGNvb PH7yKO1 mJ5bRiQhQzW8LDmuA852KmC muUOkUphkl9ncl7qqvQs5Ac K3WEHwnvAazYjcTWY0k0PwB f95P99r IHdpZHRoPSIxNSUiIHZhbGl bfy1zcJ0fPh9+CMFdqQS4jF M8fH1rLfLoWrE2FIncU104I nRvcCIv Xqatq4tmd1dffMo7OzWyVKT pjgGsiNbtPAA7f9MlHa31I4 FuuTmth8DbJus7eu71pDWbm 5X6rUJ8 E3TuOSJvcwrwiQSkePucCO5 eSKWnbsmdJPOhyP1iABAoI0 i4XeIyWeL1APvyV3SmgdS9G GJvbGQg WBXtqSQIdG8noatvv3vanxp qSrDvWFTiSGw1XLm9ECTdoI tmDvQgNGV5KmQ7BDK2mUPyd I9jyDgu tuwesL3yZea+BUL7lLHraKN CAR9lTiqopTX+VTXbZBG3jK qiEAjqFWKliJ4cRQMtK8d2Y iAwLjA1 DVtjJ2YvmrG9ZNGlpKYwVJA auVDItC2zdmefz9tkuluvJl SyGHWfIXo3QEn4TOMjbMeuQ iBsZWZ0 NsO1PUN9kISftW6adQsdehn vwA3lVhb+AmzelUtaXOA0MA m5E4VbXdq6KUOkpKyyCB2jn GFkZGlu Kz5ilSveuBouRW9rGCIzdyc ot282VwPxq1uiDMSybWNkIB oqHAV7H65sf4K0IBWqGNQcR DH4zTI9 lR0mcOjeavtgkCKtzRqyxoR pzGcuLEayZOecE816TMTdbP jvOxFwDZf7J8VfVmx8RJDex MclVB2t rQQuBExjXm3ocPvenVarXF3 uUEUndaktx799TnVnj8bdNT XwgINiPTlrXYX6A03yp0E4O CMwMDAw SXK5tGP8rW7wqNtvcpppyOP mdDsgdmVydGljYWwtYWxpZ2 62HAHfvQcdIeYzsFb3I3MzN ir3YRTg jOqpAK0gtZZgXAaoWg3piXy vxDhtZY5gAKMjxvvmq173Gh Bqr8kiJKIadIWeNCxbLMM7J 81zu3A9 GHDuBNCmJIJ7lUD4nE5cwBl nbjogbGVmdDsgdmVydGljYW xvPUsoL839PYAmdNbrWwDpb GllbnQg EWzbFUx0Z1QwRmhxrPW+PC9 6KBLyIS19yVWgvWLuj2gnkL o9AfZmLSNfLAT3aAsaNMsst 3JkZXIt E27lyEXui4K2EJXliMyeqBP vUmBldYP7kN2sROsksqxqu9 bdoiumVckir7qxai29gA59F 29sIHdp ZHRoPSIzMCUiIHZhbGlnbj0 pcY8lSj0+NWTynXW8mJS8fF 8eGJJkNrC8XBvcK865YsQqp CIvPjxj f8mbc3wjnVj7ImY9UENqihW kxZcoFZI7m0WvLw85N88uDM dpZHRoPSIyMCUiIHZhbGlnb p6juV6c Ii8+EDStmRL6qGF5oQ8hAbS kQiD3CSzmB023WaKvfZJrGi zlF72pQ5UnaOT+QLLuAji5A CBzdHls GH6hmVZnTJswXb7oDXP0CiL hChVoJWzwX9ZaWFJthrbtae fbxKU8ZSPfOQOsqU87Et7kd DogMTBw bDAYpA6unuynn8ipykvaUdA eNYByDJe5NSz0BBOvtIwaUl JvBJK5CpY9CRX9aKCxoK7uu Glnbjog iX2oX6TfUEPertkwHh53uI8 xCaVlTgQ1MYeyHho+TUNDQU 5OLCBIRUFUSEVSIEVMSVpBQ kVUSDwv dGQ+WYQxZVP3dAsdXQpyWZD tkB5tRFTvW0f8JpLuUdC7CM rtO9WeESKyohzkKr87xR8sQ iAwLjA1 LPtpJ9HncvS6DYTfrGYoQSz sBHH5M19go3R4MOJfLNYhMZ K4uEX0pF6fnUjbtnzskZMus DsgdmVy vSxkROcnBUtwK658HIOooQj oAwDeLqS6HgG0WIK0A7KfPe g5SEYzjRnlVJ2kaRGbUHjoG r4jxUbw qDqaLO2gGDGoftoaBOLueV4 nEEFpjSTkxSafUK0tBDOwlk bhn757NlUeRTY2QYFaaFOfB 5HkgV1o CtMnCHJiMDEfO3IpkLMfDNv qL323PYenQpQ6ORSfuhQmW3 UiANTfcDuiIxW1d7H1Cs3tU SBZZWFy czwvdGQ+MWRrFWG5iKaxEXm vXGDhzI9iNJSfX6j6QdKzNw K9IObvA3ZjBSNstrtwAc06q T1aJsSd WyC2LJakP1XplcZ1GYUubII eARjzWZL3U62og8M8OFMkYR ViXXR2uKU5hO0plEmfoqcax GVmdDsg jgGroTrqHBcqVBbxL285RRU vcDsnPkZFTUFMRTwvdGQ+PH BxUKG5rTupARuwNHWygS2qK KAjA8m5 NkKyBkK6TRlfS2CpOONppma lGc47sJ3tLkXxLnR0LHjaS6 EducH5EATwtZLeTDjoNKG5E 36vj0R1 ZFLjTNVrDWM5rJN8aG7fxQo nbjogbGVmdDsgdmVydGljYW ujICzoE530RISafWngFk1ZK X26XU66 Z9JlNzwgcCZgbWT+PHRhYmx lIHdpZHRoPScxMDAlJyBzdH zaQY5aTl1fIUHgHQRpgSigj HNlOiBj u1cuARLgIFpsGQ1zqXstW9W ehRW3USRin3e5Qp12L85zG5 JvdXA+SGMjcFA4rVP8zA9sQ zAlIiB2 UDqmC574VwPvqJAlPlpou9r xs0xzvUq5WvVcNLSxhhIixS nkZLF3l4ZqWu16U39xBRjzC HRoPSIy OOEmJXYbcIfcmk6tfT4bYb0 +YQBupEM1vEO3nC3pVzAtQp X7OYwxH374ZyIyeIMzElapQ 27iZ7Ix dXA+OUFpKsn9GEPuaZypJM6 emURwWAvgRk1nRPD9DkGlNk BeBJxhI9AqKLLtqjdpqdyus RW7EUQh LOJklU92Vn4hbRppKj5gGJV xUMN2GYErmDRuM2EtuS9bWp SzKASpOUQoR5UaaYCyXHhsI 246IGxl VaZ3GKEynvOzT2RtBIRycOh nJfS4c5Q3Bq0QyFkhlEMgIT 0kYaOdBKm7Y6MeThd0ZJLrz JueWU5x fTTcYYrwSk1tqYimcGdqGH3 uDWNtewpkb828MfCdx9dbZT SwzVXrSBvmVSX2F96jz8X3N CMwMDAw LEC6eWK4uC4igCotzrabvKN mdDsgdmVydGljYWwtYWxpZ2 61GJIdmRmuWfKXXqr6K7PsQ jw0LHUs pZneES8otJRjVKfpYe2gkTx obPugFK0wPSGwnjftl971Wo Jut4edPUCycFGxMMibJOE2S 36mn0L6 ZVPqGVIkLAF8pZL1aF1vlRj nbjogbGVmdDsgdmVydGljYW lfDMgvO522NTSbcPgyYl5LA ey9G7Dz Lll5HQEroKelIY3kxTEvVUp dAf8ltQqthMdaAA4sPIKlae nfu340QpTgf3ehBDKsdKVcO GltZXM7 W56hu2I5EANpKBEmPWV2rSI 2nK5sqWtctuwvkCMonCvklp YxyGucCVyqFPwbU365FGRhs DsnPlBh eWVyOjwvdGQ+PC91wf14N0R vFdfgFig5APKtCWN8oMZ9vC 5kXYTaILpbv5Y9vRO9E2Bmq fEveb8d b2x (more content not included)... [facility] Coding Summary HTMLBase 64 PplurqogGOw1gWr+PGhlYWQ +NG8BJUOsO40yzMGhcK4cZ0 NMTElOSywgQVBQTElOSyIgb mVhDL8iiFQfHESx IC8+DR2cSUVgGqulpJIey6Q 5pTQ0I42fit2qJLezqDV2EG BwOnYlvhyon6sbeJu3GSteN mluOyBt KNMrpK54FLJ3nR41Nv21vMM mmHQbc4seqTp9UpUyMZTfIJ C7eLfbIOiat7DvDINcO73uv OSuo1W2 AHFvpTgtoUMxKnOzqXF0jI7 mVStxiyzbr0jwfoekDfw7dt 62lFXsg7J7nKP2K3IzenQ7J GJvbGQg PaehrRPRkX7ncrvni4csevz xVlLpOKBmDPc0QTg9RKSacU buYvBjPX82VMY7CGJpcwJzB 2FsLWFs yDfdJoP4j1C3Xq3ZH4ZDUle hW6VIYPFMDKzavYU+PC90cj 84I8BcVtrkHyv8UBOgNUN6p UQ7mG3a CWCdPRpdh1B5xZZ9C0RyatZ hex0rr9umGKWiIAqrX60mzG Ohr4B7TAVlfIJ9TIXzlOjcA iBzaG93 Oyc+TDVawTvrj9JwDrsjm1j ny1hrgAf0UqgsSWImsjWadM cuWYK5y6NiGu6lNAJjxLS8h CC8iY1i KhZbVoY4OFdcH502TwEkhPP wOddoO74qM4MbxVP+PHRyPj w3SRJbwQmuES1zX6VoSJJvg mctbGVm lYutJE1uDUGwdgazGYZeoE4 qDCYyA6j2GdFxOiC5DBveF2 WwVSPcmsqhYi50eK5bEbTfR lX9EIow N8EohkU9TVAutCWzQLwoVAO 3X25vh6X0ANTsVEKhBDX1dL U9vL5fbDzqpnownGRjmArrh mVydGlj DXgeUFsjP599FTOosFkqQsP vZGluZyBEYXRlOiAgMDUvMD UvMjAyNTwvdGQ+OAIrQQX4q WxlPSAn zATnXMezPg5vzEygeEluDI8 vOWNayscdUFIzbR1iODWifL PitQqvLJ8cLBVtbqunt461I iAxMHB0 DQDnnGNqW4FpjE3cNdHlKGP wLUTsK2FijNFlHPfyC799DA ytWvP8PKAujeQmF6SvAIIcb WduOiB0 u9C4Dq0Uh5YwxkklP0ExaEN bOwHcJccjDPk9J2UyNtivmW I+SR35UCBcZJ52ZHr9DCR2i WxlPSdi AIMnX4LsvR5eXoTgENGvDWN kOyc+PHRhYmxlIHdpZHRoPS puZLGiKyXmoJyzCG0mCa6iI GVyLWNv qMbaoYAvHmPcf4tvSUZrSEt uEZ7tcCfpM0YtsMA8OPKpw8 k4Rj13K88yB9GfeOU+PGNvb LZ8dIM9 hE9iNaHtYhS6WAxwX273WfK rtXTqHhgse9jxy5evcVh2Gc M6EZGseqYgvNndWHQ0i8BfX s51P75c IHdpZHRoPSIxNSUiIHZhbGl vlr4lsY5cUq3+MFCufCI4rE A5wD7hMwFkGrG7TDpaJ654F nRvcCIv Mlnxh3bwe1yjbKg4SoDcDGA juqGjeOdmYWL6g8FeBe31W9 RurRwbb1ChQjx0yl44hTNst 4A5fEG8 P7DjDOPdsgmznEXehNycYA5 eVMZpgsejAQOnpF6eCPXfP9 s7QiQiDzO5KKgrH1EkvhR3I GJvbGQg UAMbbGLIaL4gdpuqn3ldoew pSlAoVROaLHe5JMk7KGHlxD quQwZeKMQ5IgN5DEB7sQDpi Q9bkXdw zxwzsI4zZoi+ACA0wSNslOL ZPI5vYinbcQK+ZGZpXTZ0wV orUItrPZQmmY6uTJCaP4w4W iAwLjA1 GCfcT7DjgnR0VTNroGKbZUK ivYPUzX0sbhvgn0utksyvMj HuOZKzBIl8MXs4FUAzgSrpD iBsZWZ0 JuC9TXH5uJJdjS5waSxlgmo orS2pFfk+OjqygPgaZQA8DO x3W9LsYhg1ZOGmkOphFK2ty GFkZGlu Ia4vhBtwlIvwXW6yWFNzsqy mo746ZoXos4uhUETreNZwJX nwVMD1F36ax0B5EMOlYILhE NY0pQQ2 bV8iqFpgvscdyDIuqWzcibL mkFsbVZpgCXwgZ074BLNfbT muAcOpLTt6E5JoDun8XTDbq WmlYJ5l xIQjZWkgBb1ioBbftBkmBZ8 mFYQodyosp322LsZva4buHU ZaaHAfTGpuIIX9L18tg3S9A CMwMDAw ETF3wKR5tT5ofRorpuvgtHK mdDsgdmVydGljYWwtYWxpZ2 56OCMzzVdkVtJflYr5Y9LsT fd8NIOj zTqpAH7leBVeFCflWf4yyIr qkKnvAD0hISUuavbmr969Ia Cmj8swKMFidQExKEmqGHF4E 19te0B1 KJKbTOLaHCO0nVE1iK3hdNg nbjogbGVmdDsgdmVydGljYW unPJjqF363QPFpdQpxHqOxn GllbnQg DBceDAh1P7QiSwaapZF+PC9 7MMFfRZ78mULkkJQaz0laiY s8JaJuUHPgXAN7bMbaPIlvr 3JkZXIt J25ssTYhi4M8NKHijRunjUJ bDjCjqYH4mK8qXNraajnom6 efxdikHezkr6edyk71hC43K 29sIHdp ZHRoPSIzMCUiIHZhbGlnbj0 eyU5qOf7+QVCopYH1vOH2qP 0xLIQkZyO3DEnxR422EzEjh CIvPjxj x8kzx9pimOb9LrF2JJWkbdC esJvlUWJ8y3IgFo99F33qHX dpZHRoPSIyMCUiIHZhbGlnb w4akZ3s Ii8+VUXlhGK4lBY5sX9mLrZ gNmJ5KDgnL483OvKwcGKbLu hdJ52gO2HysFR+COCaGso4J CBzdHls OH4giQMiXCviIg7kQRH1IqB qWeNfNEkwQ1VcURZrqsbpzg eqfZX8GINsTMVoyI64Fx5gw DogMTBw oWNSvP9vzaqig5taagqxKyJ iTKRqLGb4PMd5DCEtlAhvMp TdVTP9NfA4QSL0sRKkaY1zs Glnbjog bY3dF6KyGLTdkwpsOx24iG3 tIvQlXlK3ODopYgl+TUNDQU 5OLCBIRUFUSEVSIEVMSVpBQ kVUSDwv dGQ+KWVzHSO8gAdvNMcoCDR ibT1vNBEfK7b4OxRsYfU6XF ozE9UePDKezobaQd34sR8oL iAwLjA1 UVilV9UoflC7HSVnzWDkZYq iIVW7M00bq8D5ITNuJAUqYT Z0lES8sZ9woKghlertzYNmt DsgdmVy jGdsVXgfHSzqL423RIZuyGv cDfEvClX0EwS3TBV3Q4TzCw q8TZJmjNiyXD4fbAFrLTgbU j6ayOhx lLklCU8rEXHryuduCNPoiQ7 zEUKwnQFiuDxuHD3bAXNwlw aum494PiAeFLW7ESKetMUdY 1ZbxK8q PyVnGXPbYYIgI5HwoJLmHTb yQ466UEkgLqB7WLUdgiBqN0 GdHWBdgNdzQoN9i3B8Pk6dX SBZZWFy czwvdGQ+UULmFZD6fTicHCc gISIdzE3lXQHwG8t2BuQkUb W6JQbqP6VrILSheoxsVx56b K8dIiHn VwC1LMitT9LvwaD3ZEAdaFN xSHqfEZU0U98dv0G7VSEgHE PpPLJ1bOG7rQ8ncLneqrgrz GVmdDsg ntQunHfaAQdgRDctS193KRV vcDsnPkZFTUFMRTwvdGQ+PH MyQUT7bAtlDDkuDCPskO1lA YIuK3h8 PiMqHnJ6JEwmD6ZoMXQjfmc vHh02xJ9kFfOcRiL8WWplW8 JcflH4COYrgQDgNQkmXZJ8O 04ah3A9 HQPzCFArYCA8zJL7eZ8hbRi nbjogbGVmdDsgdmVydGljYW rvBNbwU795LYQvxGygXn2AQ I30TC44 H8QnBdswkOSavFF+PHRhYmx lIHdpZHRoPScxMDAlJyBzdH oiQV8aJf5uKAXaTUCjrPtth HNlOiBj k0bwCXRaSEevAU7dwPflK2L pxOD6ULLkv0d0Zf02X29dJ6 JvdXA+YHRwkXQ7gSN5bO0sM zAlIiB2 WKcaT633RzEtxDCrUfpud4v yd9ybfUk2PkZzTPQomgLsiS wqEUL0w6YtBr95S51wWWssU HRoPSIy GMRdCNUylBsyib4fnC5pKa7 +WPVzvLK1nDC7wE9lZvXpXf V9HKywF693NmFcwUCfDkzzH 23bI6Uq dXA+WKVvQgh5UATpcUqvPA5 yxNFmCAxzYn8aGWH7VlXdGu CeRPazE4FbLEUhcgmfhgnpi CX3BQQo KFVznV11Cv0ffPmgFc2vJGO wUJP7RWTojYQoX7SohA3iQy KiMRFpZTYbS7FriHPuJDnvX 246IGxl BiR3IPCqvrKrO8LaAGRbtZq rWqX8w7N5Xm8BoHqyaTWqRK 2tTcBcNAw6H4BxJtv1WKAgc RrhKW1t mFIyVUjnNz6qdRhwnWghBN8 uEEZqfgldd937XqRgp7abZQ UbhPLmOHkoNCG3O11jp7X0G CMwMDAw TCJ4eOH4tP2hkVzemlyarDV mdDsgdmVydGljYWwtYWxpZ2 41OHWgeDaqEmIMMrb9U6ApM vs5GJCm aSrwQS0kdTBoQHrtLe7jpXq pdLysGU6xBHLwhgzzf770Ee Elj9jnEHBpoQZjHZyyKXS1F 82mc4X8 XAUlKJQmEER1pKX0vU5wzMs nbjogbGVmdDsgdmVydGljYW tiWEssC839ZXQslMfoYb4GP zy7X4Ag Mfc8QJAnxRozXM8tfQKyHHf vZx3fvYopyFciKY9wMTEkxj fsy591OhWzt3csQJYpnDFyF GltZXM7 L97lp4L3YTLqLUJcWRF8bZZ 1tT4vqGjewcolgIQxeLbakp CywDynKTnpGVisJ878UZMil DsnPlBh eWVyOjwvdGQ+WF65sh50D4B wSmpbRwq4TVNwHVD4hKQ5zT 5vWZMyOWkbz6S4bJP8T4Udi cZjfd9l b2x (more content not included)... [facility] Provider [place] 08-17-2024 Provider Orders [id number]#1.00O TGTIFF [facility] hCG Quantitativeon hCG Quantitative 362.7 mIU/mL High 0.0-0.6 [facility] Comment on above: Result Comment: Post -Menopausal Reference Range is: 0.1-11.6 mIU/mL Performed By: #### [id number] #### [facility] (DEFAULT) [address] [place] [address] CNPNon 08-16-2024 [place] Telephone (REIBD) SANDERSJAZ ANDERSON ([id number]) 1995 F Date Time Provider Department 08/16/24 SHELLY HERNANDEZ REIBD During your visit today, we recorded the following information about you: [employer] Tester, Lana 08/16/2024 12:31 PM Signed Name: Jaz Sanders called today. : 1995 (home) [phone] (cell) Reason for call: pt called that she got positive test, she has been having having cramping since last night , it happens every hours for couple minutes. The patients preferred pharmacy has been captured for this encounter? yes Angella Morillo Television [employer] Tester Daniel Hanna APRN.[employer] 08/16/2024 5:28 PM Signed Called patient back to phone number listed in [facility]-no answer. Lm for patient to look out for Drizly message. Daniel Hanna APRN.JARROD August 16, 2024 5:15 PM Allergies As of Date: 08/16/2024 (Not on File) Date Reviewed: 05/09/2024 Reviewed by: Shelly Hernandez APRN.JARROD - Fully Assessed Reason for Visit: positive for [Other] Primary Visit Diagnosis: resulting from assisted reproductive technology in first trimester ([facility]) [O09.811] Prescriptions as of 08/16/2024 - naltrexone [...] Encounter Status:Closed by DANIEL HANNA on 08/16/24 [facility] ([id number]) 1995 F Date Time Provider Department 08/15/24 SHELLY EHRNANDEZ During your visit today, we recorded the [...] Date Reviewed: 05/09/2024 Reviewed by: Shelly Hernandez APRN.[employer] - Fully Assessed Reason for Visit: Patient Question [2217] Prescriptions as of 08/23/2024 - buPROPion SR [...] Encounter Status:Closed by SHELLY HERNANDEZ on 08/15/24 [facility] Provider [place] 08-15-2024 Provider Orders [id number]#1.00O TGTIFF Normal [facility] hCG Quantitativeon hCG Quantitative 160.6 mIU/mL High 0.0-0.6 [facility] Comment on above: Result Comment: Post -Menopausal Reference Range is: 0.1-11.6 mIU/mL Performed By: #### 7 [id number] #### [facility] (DEFAULT) [address] [place] [address] 08-13-2024 [facility] Telephone (REIBD) JAZ SANDERS ([id number]) 1995 F Date Time Provider Department 08/13/24 SHELLY HERNANDEZ During your visit today, we recorded the following information about you: Marianna Ward RN 08/13/2024 11:19 AM Signed Letters sent. sent to patient Marianna LEIGH Ward August 13, 2024 11:19 AM Allergies As of Date: 08/13/2024 (Not on File) Date Reviewed: 05/09/2024 Reviewed by: Shelly Hernandez APRN.[employer] - Fully Assessed Reason for Visit: Wants hcg levels sent to [facility] / [place] away [Other] Prescriptions [...] Status:Closed by MARIANNA WARD on 08/13/24 Normal [facility] Provider [place] 08-13-2024 Provider Orders [id number]#1.00 OTGTIFF [facility] hCG Quantitativeon hCG Quantitative 63.6 mIU/mL High 0.0-0.6 [facility] Comment on above: Result Comment: Post -Menopausal Reference Range is: 0.1-11.6 mIU/mL Performed By: #### 7 [id number] #### [facility] (DEFAULT) [address] [place] [address] CNOVon 07-31-2024 CNOV Office Visit (REIBD) JAZ SANDERS ([id number]) 1995 F Date Time Provider Department 07/31/24 3:00 PM SHELLY HERNANDEZ REARLET During your visit today, we recorded the following information about you: Last Period 07/19/24 Mustapha Tello MA 07/31/2024 3:12 PM Addendum Patient verified by full name and date of . Jaz Sanders is here today for an IUI. LMP: 07/19/2024 Natural cycle IUI Timed With: Ovulation Predictor Kit , Date: 07/30/2024 Escort Service Attendant offered: Patient declines Mustapha Tello MA July 31, 2024 3:12 PM Dominguez Barry 09/05/2024 10:45 PM Signed IUI specimen released to provider Dominguez Barry July 31, 2024 3:24 PM Dominguez Barry 09/05/2024 10:45 PM Signed IUI [facility] Donor # [id number] Pre: frozen washed specimen Post: 82 M/ml, [...] 3. Cycle Day: Last menstrual period: 07/19/2024 [place] Protocol: UNIVERSAL PROTOCOL / SAFETY CHECKLIST Procedure [...] Encounter Status:Closed by SHELLY HERNANDEZ on 09/05/24 [facility] Office Visit (ANDRBE ) JAZ SANDERS ([id number]) 1995 F Date Time Provider Department 07/31/24 2:30 PM [facility]OLOGY [facility]WING [facility] During your visit today, we recorded the following information about you: Dominguez Barry 07/31/2024 3:26 PM Signed Thaw for IUI. Dominguez Barry Referring Provider: SELF [[id number]] Allergies As of Date: 07/31/2024 (Not on File) Date Reviewed: 05/09/2024 Reviewed by: Shelly Hernandez APRN.[employer] - Fully Assessed Primary Visit Diagnosis:Procreative management [...] Encounter Status:Closed by DOMINGUEZ BARRY on 07/31/24 [facility] 07-30-2024 [place] Telephone (REIBD) JAZ SANDERS ([id number]) 1995 F Date Time Provider Department 07/30/24 SHELLY HERNANDEZ During your visit today, we recorded the following information about you: Hector Dingen 07/30/2024 3:16 PM Signed N- ivf Pt has questions regarding IUI Shelly Hernandez APRN.CNP 07/30/2024 6:00 PM Signed patient's OPK today was dark but not positive Plan: test again tomorrow. 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, schedule IUI the same day Shelly Hernandez APRN.CNP July 30, 2024 6:00 PM Allergies As of Date: 07/30/2024 (Not on File) Date Reviewed: 05/09/2024 Reviewed by: Shelly Hernandez APRN.CNP - Fully Assessed Reason for Visit: Patient Question [0727] Prescriptions as of 07/30/2024 - naltrexone 50 [...] Encounter Status:Closed by SHELLY HERNANDEZ on 07/30/24 [facility] CNOVon 07-07-2024 CNOV Office Visit (REIBD) JAZ SANDERS ([id number]) 1995 F Date Time Provider Department 07/07/24 10:00 AM MIKEY TORRES During your visit today, we recorded the following information about you: Mikey Torres MD 07/19/2024 7:48 AM Addendum WHI JAMEL IUI PROCEDURE NOTE Date: 07/07/2024 Primary Proceduralist: Nakia uDran MD Consents and Labels Consent Signed: Informed Consent obtained and on the chart Labels Verified With Patient: Yes Indications: Jaz Sanders, is a 29 year old No obstetric history on file. female here today for intrauterine insemination. IUI # 2. Cycle Day: 14 Last menstrual period: 06/24/2024 [place] Protocol: UNIVERSAL PROTOCOL / SAFETY CHECKLIST Procedure [...] Gonzalez 07/19/2024 7:50 AM Signed IUI [facility] #[id number] Washed frozen specimen Post: 31 m/ml, 77% Insem#: 10.8 million Referring Provider: DANIEL HANNA [[id number]] Allergies As of Date: 07/07/2024 (Not on File) Date Reviewed: 05/09/2024 Reviewed by: Shelly Hernandez APRN.[employer] - Fully Assessed Primary Visit Diagnosis:Encounter for [...] Encounter Status:Closed by MIKEY HENLEY on 07/19/24 [facility] CNOV Office Visit (ANDRBE ) JAZ SANDERS ([id number]) 1995 F Date Time Provider Department 07/07/24 9:30 AM ANDROLOGY SEWING SUPERVISOR ANDE During your visit today, we recorded the following information about you: Nichelle Gonzalez 07/07/2024 9:41 AM Signed Thaw for IUI Nichelle Gonzalez Referring Provider: DANIEL HANNA [[id number]] Allergies As of Date: 07/07/2024 (Not on File) Date Reviewed: 05/09/2024 Reviewed by: Shelly Hernandez APRN.[employer] - Fully Assessed Primary Visit Diagnosis:Procreative management [...] Encounter Status:Closed by NICHELLE GONZALEZ on 07/07/24 [facility] 07-06-2024 [facility] Telephone (REIBD) JAZ SANDERS ([id number]) 1995 F Date Time Provider Department 07/06/24 SHELLY HERNANDEZ REARLET During your visit today, [...] Date Reviewed: 05/09/2024 Reviewed by: Shelly Hernandez APRN.[employer] - Fully Assessed Reason for Visit: Patient [...] Encounter Status:Closed by BECKI ISAACS on 07/06/24 [facility] AJZ SAND[facility] ([id number]) 1995 F Date Time Provider Department 07/05/24 KARENIGNACIO TRACEY During your visit today, we recorded [...] Date Reviewed: 05/09/2024 Reviewed by: Shelly Hernandez APRN.[employer] - Fully Assessed Reason for Visit: re [...] Encounter Status:[facility] (REIBD) JAZ SANDERS ([id number]) 1995 F Date Time Provider Department 07/04/24 [...] need to be removed. [facility]. Dr. Duran notified - she is scheduled for IUI tomorrow. Dr. Duran will arrange Shelly Hernandez APRN.CNP July 06, 2024 4:59 PM Allergies As of Date: 07/04/2024 (Not on File) Date Reviewed: 05/09/2024 Reviewed by: Shelly Hernandez, PICTURE HANGER.[employer] - Fully Assessed Reason for Visit: needs [...] Status:Closed by SHELLY HERNANDEZ on 07/04/24 Normal [facility] US Pel[facility] 07-04-2024 Indication infertility testing Impression [...] free fluid visualized Performed By: Maria Elena Aceves, COBY Read By: Ignacio Guy M.D. MATERNAL MEDICINE [facility] Radiology Study observation (narrative) [facility] CNPNon 06-29-2024 CNPN Telephone (REIBD) JAZ SANDERS ([id number]) 1995 F Date Time Provider Department 06/29/24 SHELLY HERNANDEZ REARLET During your visit today, we recorded the following information about you: Kassidy Meyer 06/29/2024 8:53 AM Signed Pt had iui 06/09, pt isnt . Please follow up Cd1 06/23 . Pt had hematoma after iui Patricia Snow 07/02/2024 9:18 AM Signed Pt wants to know if she has to have us before iui this weekend Shelly Hernandez APRN.[employer] 07/03/2024 12:34 PM Signed unable to reach, left message to return my call Shelly Hernandez APRN.[facility] July 03, 2024 12:33 PM Patricia Snow 08/13/2024 8:52 AM Signed Pos preg test Marianna Ward RN 08/13/2024 9:17 AM Signed See TE encounter dated 08/13 Marianna Ward RN August 13, 2024 9:16 AM Allergies As of Date: 06/29/2024 (Not on File) Date Reviewed: 05/09/2024 Reviewed by: David, Shelly G, PICTURE HANGER.[employer] - Fully Assessed Reason for Visit: 06/09 [...] Encounter Status:Closed by MARIANNA WARD on 08/13/24 [facility] [place] 06-09-2024 CNOV Office Visit (REIBD) JAZ SNADERS ([id number]) 1995 F Date Time Provider Department 06/09/24 11:00 AM IGNACIO GUY During your visit today, we recorded the following information about you: Nichelle Gonzalez 06/09/2024 12:30 PM Signed IUI specimen released to provider Nichelle Gonzalez June 09, 2024 11:24 AM Nichelle Gonzalez 06/09/2024 12:30 PM Signed IUI Cryobio #: [id number] Washed frozen sample Post: 42 m/ml, 74% [...] Cycle Day: 13 Last menstrual period: 05/28/2024 [place] Protocol: UNIVERSAL PROTOCOL / SAFETY CHECKLIST Procedure [...] was discussed with the patient or authorized direct sales representative. The patient or authorized direct sales representative has agreed to proceed with the sensitive examination. (Sensitive examination includes inspection and/or palpation of the breasts, pelvis, prostate and anorectal regions) Patient declined emulsification operator. Vidhi Sheldon MD IUI IUI Date: 06/09/24 [...] stopped. Will get pelivc scan here at [facility] if not with this IUI prior pt proceeding with another attmept at IUI. Ignacio Guy MD June 09, 2024 12:30 PM SIGNATURE: Vidhi Sheldon MD PATIENT NAME: Jaz Sanders DATE: June 09, 2024 TIME: 12:01 PM Referring Provider: DANIEL HANNA [[id number]] Allergies As of Date: 06/09/2024 (Not on File) Date Reviewed: 05/09/2024 Reviewed by: Shelly Hernandez APRN.[employer] - Fully Assessed Primary Visit Diagnosis:Female infertility [...] Status:Closed by IGNACIO GUY on 06/09/24 Normal [facility] CNOV Office Visit (ANDRBE ) JAZ SANDERS ([id number]) 1995 F Date Time Provider Department 06/09/24 10:30 AM ANDROLOGY SEWING SUPERVISOR JENNIFER During your visit today, we recorded the following information about you: Steffkimberly Nichelle Gregory 06/09/2024 11:48 AM Signed Thaw for IUI Nichelle Gonzalez Referring Provider: DANIEL HANNA [[id number]] Allergies As of Date: 06/09/2024 (Not on File) Date Reviewed: 05/09/2024 Reviewed by: Shelly eHrnandez APRN.[employer] - Fully Assessed Primary Visit Diagnosis:Procreative management [...] Encounter Status:Closed by NICHELLE GONZALEZ on 06/09/24 [facility] Coding Summaryon 05-24-2024 Coding Summary HTMLBase 64 GigcoexaDLi6wHb+PGhlYWQ +AJ4FXFAeN56hwZCooA1oO1 NMTElOSywgQVBQTElOSyIgb tNyTO6ayCAhQHWi IC8+IP8lVIBwOinuzBKfu7U 2gHR9H92chd9hHPjubZT6YQ JpUdVjjpfxi8ethUg7QOatV mluOyBt ASUlfQ17DHH1tL52Ua35oHX kxWUev0oisQp2HcAwRZGiCE S2mAueVYjmo1DyOTClF88rc OCsk5V6 AYIziSsfuGEcFdYccUP0gP8 uESczumbbi1oqammyMns3iu 51hJJfr3O0vIJ2N0AzfmO8Y GJvbGQg NnbmfRHKqS8esuxiw7gqtrw xBuZdOEAoVAz0QEs8XDYwcX vyPiFvJC83EPJ0EZNiybRgK 2FsLWFs iHxwYkN1j5H3Sx2TK3CXGxu sC4GGLXRAXJnnkPG+PC90cj 17N4SfAfozHlk8NYOnRZF8o MF1oW1i WSTyEDdso3P2rXG7D1IrfsY gbj3sw8nfRVMtCPivM25woL Fll1Y7AJGxdHU7HAFjmZmiF iBzaG93 Oyc+VRLvhElqy7KbTkiup3x dm0hezYk9FoteJOMwqeGojZ akTGJ9f1YxJk3vMFFtbPI6b ZS1eM6c UpNpAtS3MUbmX773TxAhfPZ qDuqnE83mD9TbnUF+PHRyPj k2SBDqbRozKR7rF7UkPZQlm mctbGVm yQftYJ1qWBFfjvlmKZAmvC8 kJVNdX1k7ScJcQjQ3GWnqF4 UhDPGjqggoKp39uW9zZbOlI gZ0WQfs Z4SrkcP6GMCwnDQeCEiaBVG 7I12sa3G7XUYyIXMtBIW5rN B3kL4bpZncnlnmbMTfxZbgi mVydGlj RXpiWSdwN290KXGsoXznMdQ vZGluZyBEYXRlOiAgMDIvMD YvMjAyNTwvdGQ+YVWqPPV7h WxlPSAn aKCsLDasFb7lhHtjcOhvXT0 qUWMjtmqbHCMpgD3rBLPnvD XvvAzfJW0hRMMedjlka479Y iAxMHB0 DDSuuPEfP7LjaS1dBmIyYJT rSAKkQ7YyzWEcHSlyX324FX aiPkO9BQMpkqHxY5YnAAOjk WduOiB0 a6J0Ch7Xp1IpyjsdX4KyaDU fOeYxFhffFJw6C9MkRxwcuF I+ZH06XBQqVM24DGe4XWA0k WxlPSdi VICqL3KhqE6aPrUcWFSbFXU kOyc+PHRhYmxlIHdpZHRoPS yjFWGeYeGgyLegGV7xEm2wY GVyLWNv wCcohCAnRoNkq8gsCLFdCFj rIA9ymUvwD9VbbDX2TFPci9 z0Re20H79bH4DrrNR+PGNvb MM1pGU6 qL4rNkPzMtK7XVdmD288GfY slFXyIokqm3ema4vtzHp3Mv H4QXHivtRnuQpnZSY0i7NtY p29C08w IHdpZHRoPSIxNSUiIHZhbGl lge6hgM5yUa3+YYCioIK0yG E6vT7dYiSpQvJ2IWkxW804X nRvcCIv Cyklm4wbq3gzjRg9NxLxDEN snpWjaZmjTWV8g4KoVt27V7 PriZwvx9KtUqa2kq77lNSaa 4G3dVW0 F2QhAWKirljonFAbmLttWD8 qCJYwamktKAZekR3dBDCkU8 f3ZyHzWlT3GDjhH3GuglD9C GJvbGQg OYZmkTQZhW8gtsgxc5oepqd hJnXeGFRhSAe9DXv2YVOsqU pmAfIhWEJ2NjI5ZZH0fWUia B7wzNcn ekrzjJ9vDll+YDS6kUBfoNX QEV8tJrvxsRU+ZARdPDY3jJ wqKLhwVCOupR9lSBVoG8r1S iAwLjA1 JAufM0TnkuV3DTKdmGGaKJV dhQKGjK3hoduhk2pddeajVr VnPMKoJMe2VXs9JXMmtWakD iBsZWZ0 RwP8RSD8jEWvsA8idFfaefs mwM7nUfz+NynjeVnnPNI5XZ e1S3HsAen0NWUajKxmAI2yu GFkZGlu Ba4yuYscyMfoTH5sRHTwskd nt110TkKxe2tgZYDkxOXtYU pqTVJ0Y23dl5D3LIGaREJeT RU8xSZ3 mB0wrNfwzkyyrVMyzXrgjeI fhFyoUJztKMkgK453SJLbzV hdMdAbQJl2F0MjTsx2QKNka UfqYP9u oMAsILqmAk6zrLpfqGieZX3 vNVIltcxka907VfGgn4ueWY LxeYIrNVnbRFS5Z10vw5T5G CMwMDAw LYE6xYI5nH4ssWjlzzhtdGW mdDsgdmVydGljYWwtYWxpZ2 49VFUozDvmSoRuySc6W7VnC xw6JAVq zTdlQH7mdIKhGBqhZt9llMf kaGjqSC9nHYRtjhexh446Ge Iqy7fqCCNfiSIaDTnbDGG0Z 35ch6Y2 UMDwUHWcDVL1eXW2rT2ndOw nbjogbGVmdDsgdmVydGljYW faXHjoP926ZDQixEptMdCja GllbnQg NYpfZRy0Z5HcMezdlGR+PC9 1INYzGQ66lFMbsSNmf6kcpR t7GhKlMKKsHBF6mKvaOXiwn 3JkZXIt P11otLOnd3N8RGLgfOacaCK xOuOesOO4eZ2yELxybjguy8 lwvfidPmzyp0dszg66mU04Y 29sIHdp ZHRoPSIzMCUiIHZhbGlnbj0 wzF6nJq1+COCyrXQ3wHB7jF 7vDHApZeC1JHzuN978JuXpz CIvPjxj d0rto7qwkGo1YoT8GOJeniX arSeaHED1e5LjWm90Z53tIN dpZHRoPSIyMCUiIHZhbGlnb s0gyI5w Ii8+DALzhRU9bFD6gE1pBiQ iRbM3KJlyW021UcXyuDEoXk qkK59qT0LhuLX+RUSfVnq9L CBzdHls IP4tvEJiUOaoNn5gZSV2LuG mHqTjHXheZ7VwZPKglajdrx bugRJ6FMOzZTOmmZ73Bo1vs DogMTBw bOLMaS4pjbbee6nvduybEcY hUZAoMKa0JFn3NYBetNyqCj JfBQK1TnA0ZYC7pGArfR9ee Glnbjog nX9zF0QoNRJmkfxwJm68aA5 bOvGiQeN0SQujLaj+TUNDQU 5OLCBIRUFUSEVSIEVMSVpBQ kVUSDwv dGQ+AJNaUVG8cAqwZUxvWUM tsC6vJRItV6f6GsKlSbB8FM ghB1RuUHAcyjlbXm31zU8cT iAwLjA1 UWcuH0RbgoX1BIKiuMMxNUe gKCS1I12sa6W5YVZqEMXeWT H5oDN9yU3uhGyyxalyjNWfj DsgdmVy xBxkHQkeNOmrY401SRHshNq rWhWoBpG9PhU7ZWR0D8MvPu x6OMOltXbdTF1szOWiMTjaX o7emCvc oWvuMT0mCNIkwxnsHNObhJ6 gIIVoiJSkpKfcNK8uZSBsbz dyc997YwHeKUF3BWOlhYFlF 9VniD9j ReEuKVPcXDUdQ3ZgsQWqOCl dW817TZlvHwX4WUDtvfPfC0 VpNHBasBcnJpV2q2F2Ps3jS SBZZWFy czwvdGQ+VISdHXX1dMkvMFh jVOBxoB2dETOmK3u6MoIuRh Z6BCazE0PfFZDteikhFb20w V2wFbIm WuT2IVgcK8ZdemW5GYSwxCO kWOreMYT0X60fb8T3DEKkMP EeNGS6lAG1uN2fkExetzqqp GVmdDsg kwDuuEexTGpvQGzgI910PVT vcDsnPkZFTUFMRTwvdGQ+PH CvEAH4wQyqBDytOSDplU9mE DBkK9d7 DzElHoE4SWlvC5UwOOGwgtw jJa55jN9uNaErQxF8VBpjX1 KgckX8DWBfyKJzFWvbMNO6J 12za2O2 GTTsSZKbPZK0cEE8bA9jcKv nbjogbGVmdDsgdmVydGljYW epCXokV383GCQpvSyeGf9QP E51SX06 M1SrYjkdsDIexXA+PHRhYmx lIHdpZHRoPScxMDAlJyBzdH drBW2qXi4xZFPfCSXpgMyfn HNlOiBj d2xmYRXnLTdlXN2ljEzxZ8B neVB8SRUlt4v9Qa34G18yV0 JvdXA+ESVfdRF7fSY3gF1mA zAlIiB2 VNbfE110UaUoxHNaCdwuw6h vn3yftCm0FyThIZFjmfYlnD bqTTW0p3NoUu38T02lLZfqU HRoPSIy GSRaKQWehWitvf1drU6nXe6 +ZAUpjZO9hNR4fU2hPoUzCe Z6RKqvD893TeGxxGWgVqfjF 34aD9Sw dXA+JOOoOae4KYUjoEjnTL1 evTQlRPlfId2cGSH9XsNiOg WrTEsyR2LvQWAustlfjuhgr QO0SGPg IFCvlK14Ai2ecTbtUx5nIHO qXAO2MPGchJWaN0ZktW6gXm MnHOFzLWPaU4GaoJNlIBhnQ 246IGxl QeO2GRFwlsGfZ1LfZVFbuTz uOcR9s2R9Vq3ApEminQSfWI 4pTiRkHBd0Y9FuXlk7JWNhy QzvGG7r fCGbEOknLi9vxWutyGzoIG0 xWSZcuzqfu013AgEpx0mfLJ SggLOpQQnsOOW7N86jb2H2A CMwMDAw NJP2wIK0qJ7dqHyyulnklCZ mdDsgdmVydGljYWwtYWxpZ2 50TSGwpWefEvVLYzx4Z1SuK dl5ORYt nPbqMX8qqWSmWJhfYd3njJb hvXknYQ5bMMWlokaot034Uy Mqw0wjZMHdgRPnYSrgYKX4Y 37vx0T8 WHGkWGLfVJW0lPH0uO7nzQm nbjogbGVmdDsgdmVydGljYW avFAyuP281SQNzeFonXm9KD cc6E3Gn Glc9MAIofCzxYV7rsHQiIBu xJs8unKhqjFyyCM1vAGFxzv rnz889WhAim5bzPXUecJKbB GltZXM7 H74yg4N8ZCTaMEWsIIN9tXK 2qT1ccWqsxnqvwZHznUccwm EiaAmjQJkwUMltM221UUWcd DsnPlBh eWVyOjwvdGQ+TF51pq77A0O lRwomGdj6MNXaWUL2rNU4uR 5wVQNfLTtrl1O7hSW5B0Cyg zOfiy4h b2x (more content not included)... Normal [facility] Progesterone LCon 05-22-2024 Progesterone LC 7.6 ng/mL Invalid Interpretation Code [facility] Comment on above: Result Comment: Foll icular phase 0.1 - 0.9 Luteal phase 1.8 - 23.9 Ovulation phase 0.1 - 12.0 First trimester 11.0 - 44.3 Second trimester 25.4 - 83.3 Third trimester 58.7 - 214.0 Postmenopausal 0.0 - 0.1 Performed At: [facility] [id number] J Luis Gray PhD Ph:[phone] Performed By: #### 3 [id number] ####[facility] (DEFAULT)[address] [place] [address] Provider Orderson 05-21-2024 Provider Orders [id number]#1.00 OTGTIFF [facility] Physical Therapy Noteon 04-20 Physical Therapy Note [id number]#1.00O TGTIFF [facility] 25(OH)D3 SerPl-mCncon 2023 25-hydroxyvitamin D3 [Mass/Vol] 28.8 ng/mL Low 31.0-80.0 [facility] Comment on above: Order Comment: Speci men Type: BLOOD SPECIMEN Ordering Facility: [facility] Address: [address] [place] [address] Result Comment: Clas sification of 25 OH Vitamin D status: Deficiency/Insufficiency: < or = 30 ng/ml. Sufficiency/Optimal Levels: 31-80 ng/mL Toxicity: > 100 ng/mL. Test performed by chemiluminescent immunoassay. Performed By: #### 5 5454-3 #### [facility] CLIA [id number] [address] [place] [address] [place] C. trachomatis+N. gonorrhoea e DNA AC+probe Ql (Unsp spec)on 04-02-2024 C. trachomatis rRNA AC+probe Ql (Unsp spec) Not detected Normal Not detected [facility] Comment on above: Order Comment: Speci men Type: BLOOD SPECIMEN Ordering Facility: [facility] Address: [address] [place] [address] Performed By: #### 5 5454-3 #### [facility] CLIA [id number] [address] [place] [address] [place] N. gonorrhoeae rRNA AC+probe Ql (Unsp spec) Not detected Normal Not detected [facility] Comment on above: Order Comment: Speci men Type: BLOOD SPECIMEN Ordering Facility: [facility] Address: [address] [place] [address] Performed By: #### 5 5454-3 #### [facility] CLIA [id number] [address] [place] [address] [place] CARRIER SCREEN, [place] [address] 06-03-2023 CARRIER SCREEN RESULTS View results in S canned Documents link when available. Normal [facility] Comment on above: Order Comment: Speci men Type: BLOOD SPECIMEN Ordering Facility: [facility] Address: [address] [place] [address] Performed By: #### 5 5454-3 #### [facility] CLIA [id number] [address] [place] [address] [place] CMV IgG Qnon 04-02-2024 CMV IGG QUAL Negative Normal Negative [facility] Comment on above: Order Comment: Speci men Type: BLOOD SPECIMEN Ordering Facility: [facility] Address: [address] [place] [address] Result Comment: No s erological evidence of past exposure to Cytomegalovirus. Cannot exclude recent infection if the specimen collected within 4-6 weeks after infection. Performed By: #### 1 989-3, RUBIGG, 7852-7, 7853-5, VZVG2 #### [facility] CLIA [id number] [address] [place] [address] [place] CMV IgG SerPl-aCncon 024 CMV IgG Qn <0.20 Normal [facility] Comment on above: Order Comment: Speci men Type: BLOOD SPECIMEN Ordering Facility: [facility] Address: [address] [place] [address] Result Comment: The magnitude of the measured result is not indicative of the amount of antibody present. U/mL values are interpreted as follows: Negative <0.6 Equivocal 0.6 to <0.70 Positive >=0.70 Performed By: #### 1 989-3, RIO, 7852-7, 7853-5, VZVG2 #### [facility] CLIA [id number] [address] [place] [address] [place] CMV IgM Qnon 04-02-2024 CMV IGM, QUAL Negative Normal Negative [facility] Comment on above: Order Comment: [facility] Type: BLOOD SPECIMEN Ordering Facility: [facility] Address: [address] [place] [address] Result Comment: No s erological evidence of recent exposure to Cytomegalovirus. Performed By: #### 1 989-3, RIO, 7852-7, 7853-5, VZVG2 #### [facility] CLIA [id number] [address] [place] [address] [place] HBV core Ab Ser Qlon 024 HBV core Ab Ql (S) Negative Normal Negative [facility] Comment on above: Order Comment: [facility] Type: BLOOD SPECIMEN Ordering Facility: [facility] Address: [address] [place] [address] Result Comment: No e vidence of current or past infection with Hepatitis B virus. Should recent infection be suspected, repeat testing may be considered 3-4 weeks after this draw. Performed By: #### 1 6933-4, 5195-3, 64195-8, 30641-4 #### [facility] CLIA [id number] [address] [place] [address] [place] HBV surface Ag Ser Qlon 12- HBV surface Ag Ql (S) Negative Normal Negative [facility] Comment on above: Order Comment: [facility] Type: BLOOD SPECIMEN Ordering Facility: [facility] Address: [address] [place] [address] Performed By: #### 1 6933-4, 5195-3, 28208-1, 85443-5 #### [facility] CLIA [id number] [address] [place] [address] [place] HCV Ab Ser Qlon 04-02-2024 HCV Ab Ql (S) Negative Normal Negative [facility] Comment on above: Order Comment: Speci men Type: BLOOD SPECIMEN Ordering Facility: [facility] Address: [address] [place] [address] Result Comment: The result suggests no evidence of active infection with Hepatitis C virus. Should recent infection be suspected, repeat testing may be considered 4-6 weeks after this draw. Performed By: #### 1 6128-1 #### [facility] CLIA [id number] [address] [place] [address] [place] HIV 1+2 Ab IA Qlon 4 HIV 1 and 2 Ab IA.rapid Nom (S/P/Bld) Normal [facility] Comment on above: Order Comment: Speci men Type: BLOOD SPECIMEN Ordering Facility: [facility] Address: [address] [place] [address] Result Comment: Test not indicated. Performed By: #### 1 6933-4, 5195-3, 03918-7, 27995-2 #### [facility] CLIA [id number] [address] [place] [address] [place] HIV 1+2 Ab+HIV1 p24 Ag IA Ql Non-Reactive Normal Nonreactive [facility] Comment on above: Order Comment: Speci men Type: BLOOD SPECIMEN Ordering Facility: [facility] Address: [address] [place] [address] Performed By: #### 1 6933-4, 5195-3, 73612-7, 40009-7 #### [facility] CLIA [id number] [address] [place] [address] [place] HIV immunoassay testing algorithm interpretation (S/P/Bld) [Interp] Normal [facility] Comment on above: Order Comment: Speci men Type: BLOOD SPECIMEN Ordering Facility: [facility] Address: [address] [place] [address] Result Comment: No e vidence of HIV-1 [...] diagnoses. Performed By: #### 1 6933-4, 5195-3, 63164-2, 69221-9 #### [facility] CLIA [id number] [address] [place] [address] [place] HbA1c (Bld)on 04-02-2024 Average glucose Estimated from glycated hemoglobin (Bld) [Mass/Vol] 85 mg/dL Normal [facility] Comment on above: Order Comment: [facility] Type: BLOOD SPECIMEN Ordering Facility: [facility] Address: [address] [place] [address] Result Comment: eAG: (Estimated average glucose) is a calculated value from HgbA1c and is direct sales representative of the average blood glucose level in the last 2-3 month period. Performed By: #### 5 5454-3 #### [facility] CLIA [id number] [address] [place] [address] [place] HbA1c (Bld) [Mass fraction] 4.6 % Normal 4.3-5.6 [facility] Comment on above: Order Comment: [facility] Type: BLOOD SPECIMEN Ordering Facility: [facility] Address: [address] [place] [address] Result Comment: Amer [place] Diabetes Association guidelines indicate that patients with HgbA1c in the range 5.7-6.4% are at increased risk for development of diabetes, and intervention by lifestyle modification may be beneficial. HgbA1c greater or equal to 6.5% is considered diagnostic of diabetes. Performed By: #### 5 5454-3 #### [facility] CLIA [id number] [address] [place] [address] [place] RUBELLA IGG ANTIBODYon 04-02 RUBELLA IGG AB, QUAL Positive Normal Positive [facility] Comment on above: Order Comment: Speci men Type: BLOOD SPECIMEN Ordering Facility: [facility] Address: [address] [place] [address] Result Comment: The result suggests recent or past exposure to Rubella virus or history of Rubella vaccination. Positive result may also be seen due to presence of passively-transferred antibodies. Please correlate with patient's history. Performed By: #### 1 989-3, RUBIGG, 7852-7, 7853-5, VZVG2 #### [facility] CLIA [id number] [address] [place] [address] [place] Reagin and Treponema pallidu m IgG and IgM [Interp]on 04-02-2024 T. pallidum IgG+IgM IA Ql (S) Non-Reactive Normal Nonreactive [facility] Comment on above: Order Comment: Speci men Type: BLOOD SPECIMEN Ordering Facility: [facility] Address: [address] [place] [address] Performed By: #### 1 6933-4, 5195-3, 26968-6, 63844-0 #### [facility] CLIA [id number] [address] [place] [address] [place] Reagin+T pallidum IgG+IgM Se rPl-Impon 04-02-2024 Reagin and Treponema pallidum IgG and IgM [Interp] Cannot exclude recent Treponemal infection if specimen collected within 7-10 days after appearance of suspect lesions or 2-3 weeks after an exposure. Clinical correlation is required. Normal [facility] Comment on above: Order Comment: Speci men Type: BLOOD SPECIMEN Ordering Facility: [facility] Address: [address] [place] [address] Performed By: #### 1 6933-4, 5195-3, 33983-4, 84890-0 #### [facility] CLIA [id number] [address] [place], [place] [address] [address] [place] TYPE + SCREEN PRENATALon ABO A Normal [facility] Comment on above: Order Comment: Speci men Type: BLOOD SPECIMEN Ordering Facility: [facility] Address: [address] [place] [address] Performed By: #### T SPN #### [facility] CLIA [id number] [address] [place] [address] [place] Rh Nom (Bld) Positive Normal [facility] Comment on above: Order Comment: Speci men Type: BLOOD SPECIMEN Ordering Facility: [facility] Address: [address] [place] [address] Performed By: #### T SPN #### [facility] CLIA [id number] [address] [place] [address] [place] TYPE AND SCREEN EXPIRATION 04/05/2024 23:59 Normal [facility] Comment on above: Order Comment: Speci men Type: BLOOD SPECIMEN Ordering Facility: [facility] Address: [address] [place] [address] Performed By: #### T SPN #### [facility] CLIA [id number] [place] [address] [place] VARICELLA ZOSTER IGGon 04-02 VARICELLA ZOSTER IGG, QUAL Positive Normal [facility] Comment on above: Order Comment: Speci men Type: BLOOD SPECIMEN Ordering Facility: [facility] Address: [address] [place] [address] Result Comment: The result suggests recent or past exposure to Varicella-Zoster virus or chickenpox vaccination or zoster vaccination. Positive result may also be seen due to presence of passively-transferred antibodies. Please correlate with patient's history. Performed By: #### 5 [id number] #### [facility] CLIA [id number] [address] [place] Coding Summaryon 03-20-2024 Coding Summary HTMLBase 64 LjjglnviTXy6vAc+PGhlYWQ +JL9FFPBbJ54ryBUnhJ6fS8 NMTElOSywgQVBQTElOSyIgb zWdPV6ekQVcWBYc IC8+GM7wIEZtFzzmvVZlo0V 8nXT1D61hue5hRVfhtDU6LB ZlCtScvaide6whtUd8WEakU mluOyBt JKGerJ97AWQ8pW69Qj70cVJ xjFXeg6gitZf9UkNvJTDsPN S5tDgoHUhdq9TcAOUgO49cv KAco9S0 YOFhvPkaiFHpBiPfdWJ7bF6 xDNxjymgxi0sxenebOiy7zn 76gAUvn9S9bHC4A7JeklR9V GJvbGQg HpqutQNYeC2jwebqo2rtfzc bOlRrRUPyFZx0YRo8CWFagL dbFgCmCP31GDO5LCTtwdCgL 2FsLWFs kWneNcZ1s1S4Do8SG0PCAmh gM9AYGYETEVovvKR+PC90cj 99Y2VdAwjkDiw9PFLrPLD5e LY6cI4a LVMmEYxti6R8zOG5A9QloqF byt0rc0bvEHJeYStgT55dpA Jqb9S4UEKffSZ0RHTkkTebI iBzaG93 Oyc+UVBjrWurg1IlKvoza3m na8afxCk9IadzPWHifdOzjS bzWVX9n1GgLn5xRSJwrTC0s TG4yH6g VlDdUlP5CPpvH443FvBxoAA jKxgmD70yW4NdmND+PHRyPj r4ENWoyBifJJ5uJ5WrIPQae mctbGVm rEfvGP6vNBTaumbpNKLqkZ1 sETRfY7x4ZtNnLxM1TYibX0 ReENAxxxqnKn60bL7oNhMbV yQ5SKau P0ZcrlO3JDMsiVQwYDnxGEM 7G01ya3P5PDCtTNCgMCN9vN L5bO6rkAnpxazexLRpkLsxs mVydGlj WTnmHQxqD496JKOawFggJuM vZGluZyBEYXRlOiAgMTIvMD MvMjAyNDwvdGQ+WVGvWTI5d WxlPSAn uETsXJlnRq8poHehyCzhXR3 iFAZcfrbgIZFmnZ1bDLXynH KcfLgfSI5uYEBhxeazd240W iAxMHB0 UXGimQHjB1CwaY9tAjQqTYU qEJAmJ3SkcAZnKYbgM928XV euOsR0AFQwutDnM9RgOQDvz WduOiB0 g3D5Oo9Qm3SfenafY2OpnWE kTtCxBzntTSl3Z7YpMajjaC I+BZ94OPRtMI68TJu3CBA8a WxlPSdi TUGcB8IlbO4zQiYzOIEcKEG kOyc+PHRhYmxlIHdpZHRoPS lhMGAkTvIerGgcHP7tJv0bL GVyLWNv eCbxtMDfJsPae6udYWHkMXn kVD2vqFijP0VkdSM4VREdx3 c0Mz79N32aY2RtjMP+PGNvb XU2jFC0 oK9nGpKtVtU9AZllR874ElC ogMCgOdotu8zqh9kjkFm9Ee X8XJVftbVrkUioMRF6d0NnE l49P51o IHdpZHRoPSIxNSUiIHZhbGl exe0oeQ2eHu3+MLQkrAH8hB F0nC4rEyTnBgU8PNgqF122R nRvcCIv Clhve7ikj9xofJy3JyHuENK byqZhlDduZFG1h9JkJt48J4 DjiPsvl4ZhKga1zf30rTHbh 3I1mZG9 I6LdTPKtfsyfpSNmxZtsMR0 hUOOxsrtyWCQzdN8kURFfI6 k6RaGnKsF8MFaoU2CvexZ7B GJvbGQg SHSyiQCTqG6jomtxa6ckscd xByStSSZlJXd0CLf2JGRivG coIcBdETV0GeK1GMC0rKYuq Z2wiBuj tagqxA3sNff+GPH1uQCgfQP BVY0vOnrymUC+ELHuVQX7fD grKBntGNNfrC4uNYOuQ8z5K iAwLjA1 IQlnZ2BiwjZ2MTFwmEZvUIY pkRNCkC7endatz0kfzlkbEh JhZDIzSOq0DJa1DSVzkXddF iBsZWZ0 KfE8EWC2xEHyhG2lpDnvcsy lkV6qPhl+UyfaeAbaBLA0GL p6B4QfAvw6BQIgwYwdKT2lg GFkZGlu Xn1rhXpsnBxpUI9sNLLkfui nh706VkNnc9hpKXMrjZTfAE lkBWZ4L88wc5M2PSNrHLGnC TV6fUH1 lD2lyHdmttkyoJLjaKzzbhP abXtnWRckOTltR788GGMkwO swYiXoYQy1M1OrThd3YRToq NczSH5s yAQhLWrhSd0lwEiyuUmxSO3 kXKAildrew835NvJmj9cjWV DnrRIfPKoaHCD3U11ws7K7G CMwMDAw DQR4pTE7qS6pdBzikxkbkKJ mdDsgdmVydGljYWwtYWxpZ2 38POEiaEryDpAkuQu7V4NdJ hy5EMLf iEjpCL5iuMNgCCyhXk3qhVc elHoyPX5gGJGvqtlxw120Ty Der7miIWFsrHJoLCihNOV3J 41xl3X7 GBItQTCoWHC9fDD8fX2djEr nbjogbGVmdDsgdmVydGljYW jnDEasN016QVKkzZxzLnXtv GllbnQg VGwcOSw0F8WqJsmwfTE+PC9 1XWRiZI52cGMjvMOcu7arzD w9YoTlPRHqQYS6rLthLLwuy 3JkZXIt L56nxCWyx3K2RDAmvYmpsKX hNoJhqYM7pV4cDLbslflry3 xlhlhiCxvnv0dwgy00lK83O 29sIHdp ZHRoPSIzMCUiIHZhbGlnbj0 krH7xGk9+LMNjkNU5jLY8fQ 6qUQKgSfE2DYtaC846AdYbp CIvPjxj a1vgh8iyiQv1MzD4ZFHmjkN bxVyxELI9u6SeIt48O11zTP dpZHRoPSIyMCUiIHZhbGlnb m0inG7j Ii8+AWCtoEK8uJB5cA2kLdQ mHlR4LKpxX328MoSsnBFpKf qfF65eF1QyhHP+ZEZyLyn3D CBzdHls CD4izJLqYHliGy8kROC1TtZ yBmKuJJcbC2YvOHNvtlwjpt tsxBP7BXTdYRMwhV20Ko1bt DogMTBw eFQNsO7sdbqrw8hpsvsyUiU wGKWcEIv2WWb8HJIneKriWl XoMZV5JnZ5JCD5pMEzuI9nr Glnbjog cN4bF8KyCTHyotkvKo36hZ3 kCkLwTgO8QUhdOpb+TUNDQU 5OLCBIRUFUSEVSIEVMSVpBQ kVUSDwv dGQ+CGLsGDB1hObnLZxgHXZ huN7jAYNqI6l1WhDjNaF4BA gkX7AkHNVvzknsJd63fO5jA iAwLjA1 FSvzI7FxfuM7YAUcvSUyQWk dQJE2R14vc5O2ZOFdQSMmDV T3hXF4wM2koFhzriahoQNsw DsgdmVy fAwgEErwQNrhN394KVNotVs pSnKhNxR6GbI7AYA6G6YbFs f0RZYxxKotWK8ppNXqBMoyO x0mhElf zWliOV2iJLJrlrjqHQNdhU9 fCPQzlCGliAndHS7rPYUqxs ypw643BeIxWTE6VVAmqVAeX 9PmkC2w WyPqEDIeZSYfY6YdcIRuMEw zA065ZJuvUpH4WUCimxLpP7 MiZZIszBgnElS2r8X4Ng6wM SBZZWFy czwvdGQ+KSYoSCJ3hRoqSIz rTMFsiD1cLAOzJ8z4IzJqTv X4FMczU2IsVPDxxsckTe82n Y8qFnWl OnN0GQfvD2OsdiA2JSJmqPE pWXwxXOR0E58nc8J1YFQzZQ GxDMA4mJD2aT5tjLwrpehet GVmdDsg jiMdtQjlEGueCRryI024MZS vcDsnPkZFTUFMRTwvdGQ+PH TdFMB1fWjuFInlDXTrmE1qV AGdQ0s5 YyRbFvB6CLgrF0ExNANzaqj oDz57nK9kIrNfSuJ3NVluS9 YookG3CYNxcOFrLTwaUBS5N 17nc3D5 WYQlTZAwKNK3nVD7vR8gqQb nbjogbGVmdDsgdmVydGljYW jpRUrlD334KCTkzIgwQxYiW 3Vycmlu IeHKaXFaSZSuZH90SS18GQ8 7V0StQnaanRYitRR+PHRhYm xlIHdpZHRoPScxMDAlJyBzd HubQT7d Pn8vRJSqFVPtlVlkhTKkRsI dx4wfCUDgSHpuPP5azHjcE2 YmzFF1KFUea1z0Dz26W34sQ 3JvdXA+ WLMqgFY3dIC8cU9hXkLdOiP 6SYrnJ063OjXgeJKbHugqs6 ves4mzcTe6PwVrCSTkomDio WduPSJ0 x8SfCe07I39mAAzhTODbRID bXLErTVSlzXtwaa4pzC9nHd 8+DKVflBB1pSM5tA3sFxMxS iR9SBcx R991DeUnvXErRmmuM07kA9K vdXA+BTUtBlc2TTAurDecRS 0ftWNiHJzmLc7jKNA3YdCnY jIwMGlu A9HvVLTlftvezlikuMQ6HBD kUPThfW38Rt1xoOyrAo4qVT EpFYP3DCNtcRChZ6IsvS1nJ iAjMDAw QYTjW6FciTXeSMikQ176MYz bVsP1MKFnerAoX6SeZLDboZ scAoR8g6N4Vu1EbYadxGKpC C0wLuQv VZg3E7CsTdl3HCYdwJzlMM0 rcBPnTCweYy7aeBirbWpfRU 1dTBEwhbets109XfPid8jfC DEwcHQg BPmbDQV0X07sf0O2YSPwLXW vZIS4tPM7cP1ggLondpbscW VmdDsgdmVydGljYWwtYWxpZ 246IHRv sKlkTtGESnd9V8IlWfy2ZVH gkDalRG8uyOXuDLgwFb2dbU yknYhbIX1dFXKcbltfp534F gCsm9dd CPNdjISpDZyvRRS7C06zh5Q 8XHCiVFGiSJG7lJP5aA5kxQ lnbjogbGVmdDsgdmVydGljY WwtYWxp C185XPMbsEsbPs4PEgi1M3X sMdq2YNYsfJrnFD4dqOMsLF qpRm0ayOapyAxfOA4rCONlq lqxw695 JxOug7vxWOKfvYEhTVvcRXT 1E30in4J6BKJgOLEfMEA4dU E5qT5ocUofkrvjbEKfbUyff mVydGlj ACduWDmsN316VDBeoEcrVuU heWVyOjwvdGQ+XF43ko40D7 ViMkjmGth3URRlEUK5pLZ6e S6lUWWe [facility] (more content not included)... Normal [facility] Provider Orderson 03-07-2024 Provider Orders [id number] [facility] [id number] OTGTIFF Normal [facility] .Auto Diff 1on 02-29-2024 Auto Allen % 3 % Normal 04-29 [facility] Comment on above: Performed By: #### 1 [id number], [id number], [id number] #### [facility] (DEFAULT) [address] [place] [address] Baso Abs# 0.0 x10 Normal 0.0-0.2 [facility] Comment on above: Performed By: #### 1 [id number], [id number], [id number] #### [facility] (DEFAULT) [address] [place] [address] Basophils/100 WBC (Bld) 0.3 % Normal 0.2-2.0 [facility] Comment on above: Performed By: #### 1 [id number], [id number], [id number] #### [facility] (DEFAULT) [address] [place] [address] Eos Abs# 0.0 x10 Normal 0.0-0.4 [facility] Comment on above: Performed By: #### 1 [id number], [id number], [id number] #### [facility] (DEFAULT) [address] [place] [address] Eosinophils/100 WBC (Bld) 0.1 % Low 0.9-4.0 [facility] Comment on above: Performed By: #### 1 [id number], [id number], [id number] #### [facility] (DEFAULT) [address] [place] [address] Lymph Abs# 1.5 x10 Normal 1.3-2.9 [facility] Comment on above: Performed By: #### 1 [id number], [id number], [id number] #### [facility] (DEFAULT) [address] [place] [address] Lymphocytes/100 WBC (Bld) 16 % Normal 14-48 [facility] Comment on above: Performed By: #### 1 [id number], [id number], [id number] #### [facility] (DEFAULT) [address] [place] [address] Allen Abs# 0.3 x10 Normal 0.0-0.8 [facility] Comment on above: Performed By: #### 1 [id number], [id number], [id number] #### [facility] (DEFAULT) [address] [place] [address] Neut Abs# 7.8 x10 Normal 1.5-9.2 [facility] Comment on above: Performed By: #### 1 [id number], 3819026, [id number] #### [facility] (DEFAULT) [address] [place] [address] Neutrophils/100 WBC (Bld) 81 % Normal 44-88 [facility] Comment on above: Performed By: #### 1 [id number], 7287165, 6478446 #### [facility] (DEFAULT) [address] [place] [address] CBC w/ Auto Diffon 4 Erythrocyte distribution width (RBC) [Ratio] 13.9 % Normal 11.5-15.0 [facility] Comment on above: Performed By: #### 1 [id number], [id number], [id number] #### [facility] (DEFAULT) [address] [place] [address] Hematocrit (Bld) [Volume fraction] 45.3 % High 33.7-40.4 [facility] Comment on above: Performed By: #### 1 [id number], 7505506, [id number] #### [facility] (DEFAULT) [address] [place] [address] Hemoglobin (Bld) [Mass/Vol] 15.5 g/dL Normal 11.3-15.9 [facility] Comment on above: Performed By: #### 1 [id number], 6439453, [id number] #### [facility] (DEFAULT) [address] [place] [address] Man Diff? Auto Invalid Interpretation Code [facility] Comment on above: Performed By: #### 1 [id number], 7573436, 7123703 #### [facility] (DEFAULT) [address] [place] [address] MCH (RBC) [Entitic mass] 29 pg Normal 24-34 [facility] Comment on above: Performed By: #### 1 [id number], 3344165, 9472424 #### [facility] (DEFAULT) [address] [place] [address] MCHC (RBC) [Mass/Vol] 34 g/dL Normal 26-37 [facility] Comment on above: Performed By: #### 1 [id number], [id number], 2953427 #### [facility] (DEFAULT) [address] [place] [address] MCV (RBC) [Entitic vol] 86 fL Normal 81-100 [facility] Comment on above: Performed By: #### 1 [id number], 5278442, 9924686 #### [facility] (DEFAULT) [address] [place] [address] Platelet 213 x10 Normal 138-427 [facility] Comment on above: Performed By: #### 1 [id number], 1434244, 3390939 #### [facility] (DEFAULT) [address] [place] [address] Platelet mean volume (Bld) [Entitic vol] 6.8 fL Normal 6.3-10.2 [facility] Comment on above: Performed By: #### 1 [id number], 4509169, 2838269 #### [facility] (DEFAULT) [address] [place] [address] RBC 5.28 x10 Normal 3.70-5.30 [facility] Comment on above: Performed By: #### 1 [id number], 2170706, 5134117 #### [facility] (DEFAULT) [address] [place] [address]78[address] WBC 9.6 x10 Normal 3.5-10.5 [facility] Comment on above: Performed By: #### 1 3783635, 4422725, 5944562 #### [facility] (DEFAULT) [address] [place] [address]2596 Ferritinon 02-29-2024 Ferritin [Mass/Vol] 20.6 ng/mL Normal 12.0-150.0 [facility] Comment on above: Performed By: #### 1 1497934, 9682876, 8780407 #### [facility] (DEFAULT) [address] [place] [address] 82936 Iron Levelon 02-29-2024 Iron [Mass/Vol] 61.0 ug/dL Normal 28.0-170.0 [facility] Comment on above: Performed By: #### 9 [id number] ####[facility] (DEFAULT)[address] [place] [address] [id number] 02-28-2024 HNO ID: [id number] Author: IGNACIO GUY MD Service: ? Author [...] for three cycles. They will meet with VIDEO SYSTEM REPAIRER to review the IUI checklist and sign consents. I spent a total of 45 minutes on the date of the service which included preparing to see the patient, dzkk-xk-knve patient care, completing clinical documentation, counseling and educating the patient/family/caregive r, and ordering medications, tests, or procedures. Ignacio Guy MD [facility] CNOVon 02-28-2024 CNOV Office Visit (REIBD) JAZ SANDERS ([id number]) 1995 F Date Time Provider Department 02/28/24 2:00 PM IGNACIO UGY During your visit today, we recorded the [...] OB History Obstetric History No data available LATEX DIPPER HISTORY: Patient's last menstrual period was 02/18/2024. 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 They will meet with VIDEO SYSTEM REPAIRER to review the IUI checklist and sign consents. I spent a total of 45 minutes on the date of the service which included preparing to see the patient, [id number] patient care, com (more content not included)... Normal [facility] IGP,APTIMA HPV,AGE GDLNon AGE GDLN ACOG TESTING Note . [facility] Comment on above: TESTS RESULT FLAG UN ITS REF RANGE LAB Clinician Provided Cytology Information Source.............Cervix;Endocervix No. of containers..01 ThinPrep Vial Age Algo ACOG Amaya... FLAG LEGEND: L-Low Normal,H-High Normal,LL-Alert Low,HH-Alert High <-Panic Low,>-Panic High,A-Abnormal,AA-Critical Abnormal Performed at: 01 =G [facility] [address] [place] [address] Dagmar Love MD, IGP, RFX APTIMA HPV ASCU Note . [facility] Comment on above: TESTS RESULT FLAG UN ITS REF RANGE LAB DIAGNOSIS: 02 NEGATIVE FOR INTRAEPITHELIAL LESION OR MALIGNANCY. Specimen adequacy: 02 Satisfactory for evaluation. Endocervical and/or squamous metaplastic cells (endocervical component) are present. Performed by: 02 Edel Sewell, Comber Operator ([facility]) . 02 Note: Note 02 [...] <-Panic Low,>-Panic High,A-Abnormal,AA-Critical Abnormal Performed at: 02 WB [facility] [address] [place] [address] Dagmar Love MD, Performed at: = - [facility] [id number] Fabric Sourcer: Dagmar Love MD, Phone: [phone] Performed at: - [facility] [id number] Fabric Sourcer: Dagmar Love MD, Phone: [phone] BRUSH-SPATULA CERVIX ENDOCERVIX [facility] Coding Summaryon 02-20-2024 Coding Summary HTMLBase 64 PbefwfycOXm2yCr+PGhlYWQ +PY1NCMMaJ71qxBOzuJ5sO9 NMTElOSywgQVBQTElOSyIgb uMoZC2wnWXkDHKa IC8+VM8rEUAkCsmvtTYns2B 9cRF4P32mbt1fXRpwbQD9PH TrKcAukxvet4ciaVn8IKekT mluOyBt YPXurH49NSX1bZ51Xk60tBG rpYXwm2sigSk9CnIrPNDdIX B8rTqpSLobl7LnWDXfY76ar AUpr7S0 ZNRqqXmiuEKcKdIscXI3lT2 yXGaifuuwk7cpkqouXen9zo 78rWNog3W5sEW5U4KsdoG9C GJvbGQg ZoeifSKFuW6nrkanh1iuitt nLwSqBIDzMUw7ESv6IGPmoO fgNdTmKA86IOB9WECtreDbO 2FsLWFs dVtaBpD4k3X7Zj7KV6WIMae gR1AZCZBYBThlaCC+PC90cj 82Y0LgEymwDso6VPZvNST7u ME0eA6g JFNaCQuru4B9lEQ1B5ElyuF bhn7ns6htPTZoLScyZ51wgM Luc5E5GRXffJK4XAXfpGsxS iBzaG93 Oyc+XFGmeFlqn6KiQivsx1p tr0yduNf5LnohQXSctzVncB koUAH6a7SzQu6wRKWniFH0f TH6rF8q LcDmIjY2OIzlC541SdFakNF dPmcsS11hJ1KdoIP+PHRyPj n7ZLRjtPozXO2eG6ThUARjn mctbGVm yFnlSB0xLKEginapRIPubY0 vCCUfA0l7NpFaGsU0SChoK3 QmNSAcloebJc61xR9kMpTsL qF4QQrv P0AmtqA3AIMjeTJsQJryIVD 2N52qi5T5ITIhSLPwRLX0iC G3uM2flMhnukkrnTXduUcpz mVydGlj IDtuQMahZ714MGMznVlrYyI vZGluZyBEYXRlOiAgMTEvMD QvMjAyNDwvdGQ+ETEkIGQ0f WxlPSAn gWSiUYcsDl4rcUhavEwwND4 sBYBvbqhaAXKyaB4gOAVwgZ QswNtuVD6dFHMaqjrrv688C iAxMHB0 AGUpkCLmL8IahW6mXhCgXTD tELPwI1ZiaIJfCBvdL994OY iaTlT3WLEfzxDoM8ZfWZJqo WduOiB0 b6Y2Ym8Sy9GohsbbF1BfgYB iVxOwCgorVEx2B7PrUydaaG I+WD77COVmOL43VFp9BYE5n WxlPSdi JAQpE2MnsF0gDgOmULEjDSF kOyc+PHRhYmxlIHdpZHRoPS kcSTKxIsBdoKlrIY0bCq2dX GVyLWNv fXjquWLyYsYuu2swYNLuXLc kBF4qgOodC3UwfWW1UJCgc7 k3Bh02W93qJ7ZikAE+PGNvb SV6pQZ7 lT1xThNoVrW3IYanX086OjE jkVNuBsten8uwb9hjlLy2Qc X6JZRghbZkaOhlBJA0r0SgO p34V62n IHdpZHRoPSIxNSUiIHZhbGl pmt3xzA6iQg0+BURstCP5mW F7yE9cPkHmYpU5LLacM348L nRvcCIv Qwlyh8rpg8yfdTn2MfJxJEP iktUhbBlxPUZ6g9HuBh38F6 VsiFtzt6KhTuk4yk00iAHlb 4W3yPH7 E0InTWIdrqinwONqoQixAP3 aJLCxrtmbYKKdoM6qHOTeM5 z0DfAhLzL7HLumX0TnjgW4D GJvbGQg PESuwSKDvT0nkffwj1ujrhu rUxVxSEImMFl2HJx5PEYspD voJsFqEGK6KqA1NVT6eBEvv T0syIkr uhctzW2tStr+VHG5eKRomNB ELE0jTclrzQZ+AZCcMTA6lZ reRHitMFZrxB6pNGMeD0q4T iAwLjA1 NJkhS9CkwsD0MHAubDWsJPH hfNEEyW5hgmvgj7cbdgbiCj ZoQSIdXZk5LOv1NFNsgJeaP iBsZWZ0 TlA6OVN5zQOthN2emZtjubs hhL3iNef+AdvahTgyOGS6OV o0M7SxTdy5TJXnzBbdEO6bc GFkZGlu Xi6zgEvedLduKO5uDVJeurd hm510NhJov8raWHYkxFOtOJ pjAEX0R51ko4I8CWVkKTZrL BZ3uMS0 uX0plMstoioxeOGrxLnounO pkGxoWItrUDxkE814IMKqiB noDrYoQRy2V1LkAng8NLDpd RypIM6b bSPzMGhmBm4onIqmaUtaAR9 sNFFatexnh432ZvWhr1gcHW AkeBWsAYydLWT9T84jw8I6W CMwMDAw MZV2xWX1aG1rnOkfoonyjTG mdDsgdmVydGljYWwtYWxpZ2 81FMVcsQloFbEgwRe1Z9ZsI zd9MCFc uOuaCC6jjVNeGIifRs0faUl nkUjyAL9uZPYkbtqvo372Yi Ggk8puLYTqtJNtMQpoMAO5I 25ct4X7 XGFlXIBvGUY7hXT5aQ5dvQh nbjogbGVmdDsgdmVydGljYW gqYHifG020QTQchRioXyNzg GllbnQg FNwmBHq3G4KhDifnvFE+PC9 9VPTpSX59xYHhzIJde2frfJ t4EhJcREUnIEV6jPuhTUzbl 3JkZXIt B15gnZZfi0E5DJVunMlecKO vUqIfeNT7pF2rSNhszxmzy7 rmbcsxZwvvh3arrb23kR04W 29sIHdp ZHRoPSIzMCUiIHZhbGlnbj0 zdL1iRz7+IMVbvRS7fNI2vR 6dUSYmTmU0YZhaB109DgLdb CIvPjxj z0sux8orfWq1KbT4FHKhxyF tfViyXOU1x0YhKs87F96zPF dpZHRoPSIyMCUiIHZhbGlnb t1uaD1g Ii8+MOIcdPA8wJD9nP7eWiU jBbE6AKzdF943MzRhdOVnRk uzR03jK5VljGC+ALBxHei1Q CBzdHls NO0wvXDvGOmtDo8tYFC7UnH iXtJtHFenA3UiDRPukncfup ouvYP9EMErYZAnkF74Ux2qg DogMTBw tHQTcQ2lzkbct1nyyyumWyR wJUMzZEn5ZDv6YFNcpThpJj TnZNC5FvO5KPP7bWGanG6py Glnbjog pG4tC1LrBQJbglyxLb68dW7 wRlWpPrN4SIwzNpm+TUNDQU 5OLCBIRUFUSEVSIEVMSVpBQ kVUSDwv dGQ+GOScYMF1iDzxIAqoLBQ zkW2jMUTmN0m6ZvOxDjK1ND owI2PzZJFmmlimFi69gC6lA iAwLjA1 OJxaR1RzufO3TANwkDPkPTs mTQV9Y66xj9R6RIUnTYBeCC H7dAK0eP8jeZwhtvnucSTeq DsgdmVy iVllMVqtRWphV740UDOnmEl fMdGrXuV9UxO3MYA6O6GvKz m2DAUcuItbGC3soTMaRMixF u0eiXvw xXpmRD3lYSCqgsczIRLelR1 uGRLkgICckVbmJE9lPYZrsd nmc129RtChOIX7HBGrsOIrY 7QtwP3f AjAqOFLkFFTvS3KdeLFyREn bM627TRxoFsE7JHAcphFpR4 YfHREalDcmPnY5t9Y9Qu2zJ CBZZWFy czwvdGQ+QQIhKCI0vAyrCJv fUVOerZ0hCVUyN6y8BnWsSf X3LAaoW4VoMGOoxvrmNp43i X5iEkHx OtM0RMbyJ1VkrnG2GQAtoAW rGEugLHQ0C65jn0S9CFErZI GfOJF6lNN3uW0lwGclujhgm GVmdDsg svMxkHqwHGxhYQfmM058GEY vcDsnPkZFTUFMRTwvdGQ+PH JmPPP6tPhlHYagTNGlyV5aY YFqS7o8 ZkExMwC4INagT7FgEAUchgn kZp60pG7mOcRuNrF6YSbiU5 CmpjS8IIIwvBOhSBkpSZG0G 52lh8Y5 GMEbKAMeEVF9iGR8yB8njSg nbjogbGVmdDsgdmVydGljYW mpXNodT935CVFgpZnjJiUcB 3Vycmlu QxRDkQIiPLMuWH21TM76OA1 8O3JkLpteiVCxfTJ+PHRhYm xlIHdpZHRoPScxMDAlJyBzd XjrKW1i Ea9oWXSaYGHbeAqmpYBkLaN po4naSEMtWDrmSE8yjBfxH1 YriKA5ZANaa6q2Gc57Q86cZ 3JvdXA+ OROclWA6hRD0yF9hWbCbAjS 8WOcuF176ZoWgiJFlQaryh8 whe9oyuLp7AqYaQBXcjdQrr WduPSJ0 m1WrWo75J47lPYsjUKXgZSP bQNMnBWFtbCxlyk4kaQ5yRt 8+XOZjyPM4gFB2yC7vDoYvV uU8EUlx W240HmDcoETmTccnU39gO9Y vdXA+VUGnCqj7MRXyuIfnRY 0frVIhPZyhLf4kGWB0ElHgH jIwMGlu I5BqDXKewlmswqkbiUR8LAU aKCVxqI55At6fdIpfEi4lFJ VuAQS8DPPnkMUvU0OfxD4fU iAjMDAw QETlA8UjzDKdWJmyI238JIw hQbA0CMFebiQwL8OnNAFpmI kqKxT6x0H7Rm9YoBslnPOdF Z1cGnCq OQx5J9BoAkw2QRMlqJjqFB2 ibMBtPRdiBd5kzCfdzHweEQ 6jROCgafrek214ZySfm9ihS DEwcHQg LRxnTEF4N85jl3A7GJVpXJT sLCC4tSC7rD8pnSetgnqqqC VmdDsgdmVydGljYWwtYWxpZ 246IHRv aNuvLpHNKtv0Q6IoAzz5BTT aiSknDW3eoQVgFQeaYc3diR ftjKaxPG2bUTPpffgww988N pEim0oi LGEwrIKqTOuvGRS0Q48eg9M 6VBZyZJOeBPF6kQN9uF0pwH lnbjogbGVmdDsgdmVydGljY WwtYWxp F485OTMlyLpyXj2CYlj6H9I pFnm0OXBygZunSN2miGYlKE baYv6neFcboAncOJ0pHMGgy qoah314 LpOuw8xpXFXckNNqMQcsHEC 9W48fh8U0UUZhQVLsEYD2yH J3oI5qbZrnhgfhxFAhnQqpc mVydGlj SUbzFDfdE475BLUzdSqmFaC heWVyOjwvdGQ+GY38mg29D7 PyBsudZvv9XZPxBUZ6zSQ9d B2oWYFx [facility] [place] (more content not included)... Normal [facility] Human papilloma virus 16+18+ 31+33+35+39+45+51+52+56+58+59+66+68 DNA [Presence] in Addi 02-20-2024 HPV 16+18+31+33+35+39+45+5 1+52+56+58+59+66+68 DNA Probe+sig amp Ql (Cvx) Human papilloma virus 16+18+31+33+35+39+45+51 +52+56+58+59+66+68 DNA [Presence] in Cer . [facility] Comment on above: TESTS RESULT FLAG UN ITS REF RANGE LAB DIAGNOSIS: 02 NEGATIVE FOR INTRAEPITHELIAL LESION OR MALIGNANCY.Specimen adequacy: 02 Satisfactory for evaluation. Endocervical and/or squamous metaplastic cells (endocervical component) are present.Performed by: 02 Edel Sewell, Comber Operator ([facility]). 02Note: Note 02 The Pap smear [...] High <-Panic Low,>-Panic High,A-Abnormal,AA-Critical Abnormal -----Performed at:02 [facility] [address] [place] [address] Dagmar Love MD, Atmchqoux at: = - [facility] [place], [place] [id number] Director: Dagmar Love MD, Phone: [phone] at: [address] [id number] Director: Dagmar Love MD, Phone: [phone] No Panel Informationon 02-19 Reference Lab Test Patient Age Note . [facility] Comment on above: TESTS RESULT FLAG UN ITS REF RANGE LAB Clinician Provided Cytology Information Source.............Cervix;Endocervix No. of containers..01 ThinPrep VialAge Olafo SARIOG Amaya... FLAG LEGEND: L-Low Normal,H-High Normal,LL-Alert Low,HH-Alert High <-Panic Low,>-Panic High,A-Abnormal,AA-Critical Abnormal -----Performed at:01 =G [address] [address] Dagmar Love MD, .Auto Diff 02-06-2024 Auto Allen % 6 % Normal -12 [facility] Comment on above: Performed By: #### 7 [id number] #### [facility] (DEFAULT) [address] [place] [address] Baso Abs# 0.0 x10 Normal 0.0-0.2 [facility] Comment on above: Performed By: #### 7 [id number] #### [facility] (DEFAULT) [address] [place] [address]97 Basophils/100 WBC (Bld) 0.3 % Normal 0.2-2.0 [facility] Comment on above: Performed By: #### 7 [id number] #### [facility] (DEFAULT) [address] [place] [address] Eos Abs# 0.2 x10 Normal 0.0-0.4 [facility] Comment on above: Performed By: #### 7 [id number] #### [facility] (DEFAULT) [address] [place] [address]32 Eosinophils/100 WBC (Bld) 3.4 % Normal 0.9-4.0 [facility] Comment on above: Performed By: #### 7 [id number] #### [facility] (DEFAULT) [address] [place] [address] Lymph Abs# 2.4 x10 Normal 1.3-2.9 [facility] Comment on above: Performed By: #### 7 [id number] #### [facility] (DEFAULT) [address] [place] [address] Lymphocytes/100 WBC (Bld) 34 % Normal 14-48 [facility] Comment on above: Performed By: #### 7 [id number] #### [facility] (DEFAULT) [address] [place] [address] Allen Abs# 0.4 x10 Normal 0.0-0.8 [facility] Comment on above: Performed By: #### 7 [id number] #### [facility] (DEFAULT) [address] [place] [address] Neut Abs# 4.0 x10 Normal 1.5-9.2 [facility] Comment on above: Performed By: #### 7 [id number] #### [facility] (DEFAULT) [address] [place] [address] Neutrophils/100 WBC (Bld) 56 % Normal 44-88 [facility] Comment on above: Performed By: #### 7 [id number] #### [facility] (DEFAULT) [address] [place] [address] CBC w/ Auto Diffon 4 Erythrocyte distribution width (RBC) [Ratio] 14.0 % Normal 11.5-15.0 [facility] Comment on above: Performed By: #### [id number] #### [facility] (DEFAULT) [address] [place] [address] Hematocrit (Bld) [Volume fraction] 41.7 % High 33.7-40.4 [facility] Comment on above: Performed By: #### 7 [id number] #### [facility] (DEFAULT) [address] [place] [address] Hemoglobin (Bld) [Mass/Vol] 14.1 g/dL Normal 11.3-15.9 [facility] Comment on above: Performed By: #### 7 [id number] #### [facility] (DEFAULT) [address] [place] [address] Man Diff? Auto Invalid Interpretation Code [facility] Comment on above: Performed By: #### 7 [id number] #### [facility] (DEFAULT) [address] [place] [address] [id number] MCH (RBC) [Entitic mass] 29 pg Normal 24-34 [facility] Comment on above: Performed By: #### [id number] #### [facility] (DEFAULT) [address] [place] [address] 04147 MCHC (RBC) [Mass/Vol] 34 g/dL Normal 26-37 [facility] Comment on above: Performed By: #### 7 [id number] #### [facility] (DEFAULT) [address] [place] [address] 93311 MCV (RBC) [Entitic vol] 86 fL Normal 81-100 [facility] Comment on above: Performed By: #### 7 [id number] #### [facility] (DEFAULT) [address] [place] [address] 44756 Platelet 196 x10 Normal 138-427 [facility] Comment on above: Performed By: #### 7 [id number] #### [facility] (DEFAULT) [address] [place] [address] [id number] Platelet mean volume (Bld) [Entitic vol] 6.8 fL Normal 6.3-10.2 [facility] Comment on above: Performed By: #### 7 [id number] #### [facility] (DEFAULT) [address] [place] [address] 68368 RBC 4.84 x10 Normal 3.70-5.30 [facility] Comment on above: Performed By: #### 7 [id number] #### [facility] (DEFAULT) [address] [place] [address] 47929 WBC 7.1 x10 Normal 3.5-10.5 [facility] Comment on above: Performed By: #### 7 [id number] #### [facility] (DEFAULT) [address] [place] [address] 76295 Ferritinon 02-06-2024 Ferritin [Mass/Vol] 15.8 ng/mL Normal 12.0-150.0 [facility] Comment on above: Performed By: #### 1 [id number] #### [facility] (DEFAULT) [address] [place] [address] Iron Profileon 02-06-2024 Iron [Mass/Vol] 72.0 ug/dL Normal 28.0-170.0 [facility] Comment on above: Performed By: #### 1 [id number] #### [facility] (DEFAULT) [address] [place] [address] 24074 Iron Sat 19 % Low 20-55 [facility] Comment on above: Performed By: #### 1 [id number] #### [facility] (DEFAULT) [address] [place], [place] [id number] TIBC 384 mcg/dL Normal 250-400 [facility] Comment on above: Performed By: #### 1 [id number] #### [facility] (DEFAULT) [address] [place] [address] 80126 Transferrin [Mass/Vol] 274.6 mg/dL Normal 192.0-382.0 [facility] Comment on above: Performed By: #### 1 [id number] #### [facility] (DEFAULT) [address] [place], [place] [id number] Coding Summaryon 12-11-2023 [facility] Summary [facility] GruffagqAHp8aDv+PGhlYWQ +US5GJMJgP50kzBYsjZ6gZ9 NMTElOSywgQVBQTElOSyIgb tEvXV6jhMBeKHIh IC8+ZF7uMQNqZuuwwWLms5M 3nQC2A91gml6lFTyjpLB9ER FdJtLhsipct3qtwOg7MCmyX mluOyBt HFKitF96OAG3sH15Ne34aBR ssUJvd5pwzZo0ArQhTHKvTZ J6hIvfXHpqb4GlKPOpC63bx OOkr6I4 DHImdYmauGHyUuCsoYJ4wB7 eOOdakkpyx7zlpkvrXya8if 12wRCuw9F7gEP7C4EzuaU7A GJvbGQg DlqzsHUXoM7dklzlj3mdtsm wSiHoJYInERg9TMj8JZHnfG dzEoCnXH48PMC5CFAhhnDyG 2FsLWFs nOplZhO8t4Z4Qv7BB8YMOmw sE9WUXOCLLRrxcZG+PC90cj 68V7MyOdbcTzd5SJFkOPC6g RX3jI0f AXYaFSthf5O8vZV7J9BamzX onh9rh0zkFKVkULdrZ16rbW Snp1F6PKHfbMU4DXLvjUidU iBzaG93 Oyc+VJKfuSzvq6EmYewoa8v ms2spiPw3SiucLWWokcAtcW joLUB4j3XgKt0aVXInsCC8x BC1dM4q RcSkKlP9WDhuJ643PbGjqLE nQkcjA28kZ2VcoPY+PHRyPj u0OJIbtYvkSF2yO3HbWAFnr mctbGVm uJwzFK5fLVWxtribUZViiY0 gMRCjH9n3HuRkLnI0SAsoX0 YkUVYlmqmmWq26hV2vCrGiD rA5AJcl E6VebwK6UTNlaBOeXZmmJUZ 2Y44bz3B0VCDtORJnLUI9hS N6eL8oeVdtfqrmcRFqnPift mVydGlj SFxsGZiwI277VVQuaYeeGxP vZGluZyBEYXRlOiAgMDgvMj UvMjAyNDwvdGQ+XKNfUDW8b WxlPSAn hZHxNEvkEc6qrGelwFntNP2 pITYjupvmERMpyZ5sNXDkoC OpvZjhJU2qSNEhvufyg204N iAxMHB0 PGWipATcB3JjpI3iEhBeEKQ eIGVlO5WtbNCoYSdhM887YY lnXxF0HIYmsjWvB7GuRPRjt WduOiB0 j5L4Py3Lw1MkclqgA1FgjCL iNbGvTaorFJp5B0JaAhlplW I+KX14XHZiDX82BHx3TJA0b WxlPSdi HGTjE9OkhK1iTaThSSQeIDF kOyc+PHRhYmxlIHdpZHRoPS qqHHDnQcKmcBbbXI4qVy7mI GVyLWNv mFoevVHxVeCnb7miGXGuKHd nEK3euJdbO0OqfJD5UYLch3 v0Ec90Z92wX3DzwHM+PGNvb GM8vYJ7 cC2vNuVtExY1EXjmT820InG vaBOdDutat7ozk9ltrBh2Ed O1YPXxwePypPmlMXN1s8AmN d86F38s IHdpZHRoPSIxNSUiIHZhbGl kky9wdU2qBg1+NGFfvAS2mL Y1qY8mHoSpPlG9TItxH329H nRvcCIv Uidhr8tta0fdyEc1OwTgLJE ptsEwvYdfECI1f2BaPr40E0 JsjMxnb3OaVby7zx62yYKsl 9Q5kWL8 F6RkAMHnxtazqYMofEvzCY1 xUSPkvqwsJMEgtH5rGKBqA6 h4OyZhJjK3AOpmH8FkwwR8E GJvbGQg KRLslEQGqG6uuvwwa8jabix bKzGbWANsNMr3INk2LWZmiP qlShTrPSA6DlX5MVC5fSLmc Q7auYva bstypD0aAlb+AMA4mQKkiIQ AYB1tOzypeFA+IRPmWMF6nF hjLEdjLLSqwT4bEBMzC7u2O iAwLjA1 HBocY9AhkeW1SSUroHKiDIQ whSEScM4xaxjgm6ovpalyKz JfXPFgOKn8DWb7PSVjgQgpG iBsZWZ0 KsP2KBV9kIKyrB2ehLhoyps wuS4rPok+EgeidRchFGE9BY q7P7PfHaj5JOAuiAclGU3so GFkZGlu Nb5viEvflLjxMG9tZBJczad ws207EgXvd2wtAPXqyPFbQO hkXKR8J52gg5I8PGPvRWQzZ DE0jWG4 dR5ctAsinqckpLRcsJuqouW iuFyqOSthJAyvC599OHFkqG wfLjIuZVn6C1FvVuc6QCNat NenIT2m lQDmDPsyDj1utXcndAwsLM9 jMKSjsqvvz595PjUfb8tnQZ DpdHAvUErnMGO4Q51yd1Z7K CMwMDAw SEI1zYD5eE6iiLorliknpRU mdDsgdmVydGljYWwtYWxpZ2 21WEPhqGfcKvGhaXq8F1IjV kk5WREw vFivAC0juYLkBRkdMd6bzWd lvCiuEG5wEWTglkqbq944Wu Sbt5rgKKKasLFdTDcvPYN0H 94qk3P0 OYBvZRHkPNN7lGF1iS6uhBw nbjogbGVmdDsgdmVydGljYW iiKGnoO607KHNmqYitSsWnz GllbnQg PWmiFJa2F2YmYscqnVP+PC9 8OXCdXX46cBKikROcm3bbkM g5MjSrJNKrFRD3bHahFGnja 3JkZXIt S25hkLCqw4O7HGGkjSkwxGP tKrLfoKI9jN1yNDysywlij7 nielfwRtesw1owax56zJ56T 29sIHdp ZHRoPSIzMCUiIHZhbGlnbj0 hrV8bWq1+DWUvhIF1iUL4xM 4wCHYlLuN8ZPknM839IvNzp CIvPjxj b8qfn4lizPi8KkY6YHXsmtS tlEdmOSB0r9SaPy71G54nOW dpZHRoPSIyMCUiIHZhbGlnb u6sgR9t Ii8+UAXvbTL6gHQ9qV1eSlC sFjI4WRuaA130ZaZwcUPtTk jlO31iZ8LiuTA+AKXfAlm3T CBzdHls JB0yuPVrMWapVx2pPNA1UyC oGnFlWZisI4WxNFPthgkzaj pugNH5KLNbIXAjmM21Ve3bc DogMTBw tOMCiF4rwseoe3ibosvkDmW nMRSnZZz1FYx2YZXayXjsQq SdEIS1PrZ2FQJ4lSZupG6yi Glnbjog wS4lW5PlBURvqdyqEf01jH0 mYfHdGuV1VBclDng+TUNDQU 5OLCBIRUFUSEVSIEVMSVpBQ kVUSDwv dGQ+QPTlQOF8wKzeEXtxWOE gtB4rIINoY7m1VtVdYlI7DX gaJ8KeRJOxauxdSh60lE8vE iAwLjA1 SKfeE5OfqtE1OUTqqHCiYLr rLLV1F34mu6G0SSRpGIQoMA I3zON4gO6wvJnljvzxuOVst DsgdmVy tUmnKOciLWblT802JMUtdFs rOpMlMnQ5WxO4VWL1V9XaMy k9OLWxwOyqTW6zkWEfLZarV o4ekIne bHtsIW7tAJMpzdgoSIVxwA1 lVUXpiETzrUskPY7kLGEzje mko650VbXwGDZ0ORFwuIMpB 6TodU2q QmTqSOIcJBBhX0XwqOWsMMe wB095VWkbTcZ6YVTfaqNeU8 ZfBOIakAhdGkW5d8N1Ay5mI CBZZWFy czwvdGQ+NSXjAFJ7mNwpVOm jVRCgoK8qGVIqF7f1BgDxHx H2QGzfD2BrDNTctbjgJe47b O3lKsOl KhV9USruI3CfpdK7JOJhrKW uORopCXW6F56dl3D0ZCVhUH AgUQN8nHQ7wU8ufJixjoukm GVmdDsg imHfvRyaQShkTWcvL792OCF vcDsnPkZFTUFMRTwvdGQ+PH NsLCJ4xKeaGShdGMWeqE4nE BHeA5t1 MgWhAmF7EEgqH8HySLMcdzn oKm19wO2xRgLuJgC7GXxzZ2 FvzjF3WQUgwJIdLHorCLH0A 46aj8K4 XOPyAPWyLJI2eDZ6uN7roKq nbjogbGVmdDsgdmVydGljYW gyYOfnG202INGzhTywDgFjG 3Vycmlu MbTKdKMnPFJaLU94UI22ZR5 7Q4FsIrtpmERgiBH+PHRhYm xlIHdpZHRoPScxMDAlJyBzd AakOF5w Md0mRUVcWCDfpKrloYGxUqZ qg7xmPFHkINazDC6isHzgO8 VkmRK5RPPab3m7Va88N72fU 3JvdXA+ TCEvtOW5tSH9mV8qCmBbZiR 4MQweS839IwQcmJNkUczju5 ivk2kpdKa5TjOgHQQimxChz WduPSJ0 q3MnRy30M09nQEpaPXZtGOH aECElTYGuuYvtcl3ksQ7xHl 8+JOGqtQQ8fVW3sB2xIiZgZ bS1SMsu V960UkFvhCWbIemoH93mP2O vdXA+NAZhUhs5EHPliYurRY 8kgRPaCFstZf7nULU3XaCnS jIwMGlu A7KnTCVwtunoqmkywVZ1VER oRKJhwT37Ki9soAszFx6cBU YtCNI2MHKesBHzA4DdpR6mI iAjMDAw XGEvE1QvyRAqXIayP649XKp yNmF9EOMwuoJyM8UqSRBidG thTdL3a0G4Xl1XbIjlbNYyY I8dNuAb SFo3P3LgWgg3TDIjoJkuNH7 osHWwLWohPq2gpSiulAkcMW 4zOTFjtjllp049HiKpm6paW DEwcHQg QAxfAOH8D59qj1Y0JFYnAJZ yDCZ9aLP1kB4smKndhnwngH VmdDsgdmVydGljYWwtYWxpZ 246IHRv qYqrVzIQHzy4O6UfGrm0EDV pcWefXM0ivKMyOZhmKq9ldP pfgUduTR8dFADxqhocf084R yCuh0jz OEFrsDOrUKdaHAM7U63hn9F 2JWJbAIAzNPK2sOL7qT8cbL lnbjogbGVmdDsgdmVydGljY WwtYWxp I498DBBivNpeQb4WLyd8D7G aGyq6IZPwaFukDW3srDEzIR ptJz7wkBbpyTdvRB6qFVEji guua859 MkVcn5olGHKmyCDzIMhgZGF 7K00ud4G1CBEnGDKrIBE5zK P0wD7bhSstwfjchCSvoZgky mVydGlj MLmuNMuvE782JSNjjVbnIsI heWVyOjwvdGQ+LL18ja08B2 GjFndbIlg3ORTzUUL2jSH0i E2wGXEp JSc (more content not included)... Normal [facility] Amphetamine Screen Ql (U)Ord ered By: Andry Lacy on 12-07-2023 Amphetamines Ql (U) Amphetamines screen Negativ e [facility] Amphetamines Ql (U) Negative Negative [facility] Barbiturates [Presence] in U rine by Screen methodOrdered By: Andry Lacy on 12-07-2023 Barbiturates Screen Ql (U) Negative Negative [facility] Barbiturates Screen Ql (U) Barbiturates [Presence] in Urine by Screen method Negative [facility] Benzodiazepines Screen Ql (U )Ordered By: Andry Lacy on 12-07-2023 Benzodiazepines Ql (U) Positive High Negative [facility] Benzodiazepines Ql (U) Benzodiazepines [Presence] in Urine by Screen method High Negative [facility] Benzoylecgonine [Presence] i n Urine by Screen methodOrdered By: Andry Lacy on 12-07-2023 Benzoylecgonine Screen Ql (U) Negative Negative [facility] Benzoylecgonine Screen Ql (U) Benzoylecgonine [Presence] in Urine by Screen method Negative [facility] Cannabinoids [Presence] in U rine by Screen methodOrdered By: Andry Lacy on 12-07-2023 Cannabinoids Screen Ql (U) Positive High Negative [facility] Comment on above: These are unconfirme d results and should not be used for legal purposes. Drug Cut-Off Concentration: AMPH 1000 ng/mL LUIS ANTONIO 200 ng/mL JOHN 200 ng/mL COCM 300 ng/mL OP 300 ng/mL PCP 25 ng/mL THC 20 ng/mL Cannabinoids Screen Ql (U) Cannabinoids [Presence] in Urine by Screen method High Negative [facility] Comment on above: These are unconfirme d results and should not be used for legal purposes. Drug Cut-Off Concentration: AMPH 1000 ng/mL LUIS ANTONIO 200 ng/mL JOHN 200 ng/mL COCM 300 ng/mL OP 300 ng/mL PCP 25 ng/mL THC 20 ng/mL HCG ( test) IA.rapi d Ql (U)Ordered By: Andry Lacy on 12-07-2023 HCG ( test) Ql (U) Negative [facility] HCG ( test) Ql (U) Urine human chorionic gonadotropin (hCG) detection by immunoassay [facility] Opiates [Presence] in Urine by Screen methodOrdered By: Andry Lacy on 12-07-2023 Opiates Screen Ql (U) Negative Negative [facility] Opiates Screen Ql (U) Opiates [Presence] in Urine by Screen method Negative [facility] Phencyclidine Screen Ql (U)O rdered By: Andry Lacy on 12-07-2023 Phencyclidine Ql (U) Negative Negative [facility] Phencyclidine Ql (U) Phencyclidine [Presence] in Urine by Screen method Negative [facility] Alanine aminotransferase [En zymatic activity/volume] in Serum or PlasmaOrdered By: Romeo Santana on 11-28-2023 ALT [Catalytic activity/Vol] 14 U/L 7-52 [facility] Albumin [Mass/volume] in Ser um or Plasma by Bromocresol green (BCG) dye binding methoOrdered By: Romeo Santana on 11-28-2023 Albumin BCG dye [Mass/Vol] 4.6 g/dL 3.5-5.7 [facility] Alkaline phosphatase [Enzyma tic activity/volume] in Serum or PlasmaOrdered By: Romeo Santana on 11-28-2023 ALP [Catalytic activity/Vol] 41 U/L 34-104 [facility] Aspartate aminotransferase [ Enzymatic activity/volume] in Serum or PlasmaOrdered By: Romeo Santana on 11-28-2023 AST [Catalytic activity/Vol] 13 U/L 13-39 [facility] Basophils Auto (Bld) [#/Vol] Ordered By: Romeo Santana on 11-28-2023 Basophils (Bld) [#/Vol] 0.0 10*3/uL 0.0-0.2 [facility] Basophils/100 WBC Auto (Bld) Ordered By: Romeo Santana on 11-28-2023 Basophils/100 WBC (Bld) 0.3 % . [facility] Bilirubin.total [Mass/volume ] in Serum or PlasmaOrdered By: Romeo Santana on 11-28-2023 Bilirubin [Mass/Vol] 0.5 mg/dL 0.3-1.0 [facility] Calcium [Mass/volume] in Ser um or PlasmaOrdered By: Romeo Santana on 11-28-2023 Calcium [Mass/Vol] 9.4 mg/dL 8.6-10.3 [facility] Carbon dioxide, total [Moles /volume] in Serum or PlasmaOrdered By: Romeo Santana on 11-28-2023 CO2 [Moles/Vol] 27.8 mmol/L 21.0-31.0 [facility] Chloride [Moles/volume] in S betty or PlasmaOrdered By: Romeo Santana on 11-28-2023 Chloride [Moles/Vol] 106 mmol/L 98-107 [facility] Creatinine [Mass/volume] in Serum or PlasmaOrdered By: Romeo Santana on 11-28-2023 Creatinine [Mass/Vol] 0.62 mg/dL 0.60-1.20 [facility] Eosinophils Auto (Bld) [#/Vo l]Ordered By: Romeo Santana on 11-28-2023 Eosinophils (Bld) [#/Vol] 0.2 10*3/uL 0.0-0.45 [facility] Eosinophils/100 WBC Auto (Bl d)Ordered By: Romeo Santana on 11-28-2023 Eosinophils/100 WBC (Bld) 3.5 % . [facility] Erythrocyte distribution wid th Auto (RBC) [Ratio]Ordered By: Romeo Santana on 11-28-2023 Erythrocyte distribution width (RBC) [Ratio] 14.0 % 11.9-15.3 [facility] Globulin Calc (S) [Mass/Vol] Ordered By: Romeo Santana on 11-28-2023 Globulin (S) [Mass/Vol] 2.0 g/dL [facility] Glucose [Mass/volume] in Ser um or PlasmaOrdered By: Romeo Santana on 11-28-2023 Glucose [Mass/Vol] 76 mg/dL 70-100 [facility] Hematocrit Auto (Bld) [Volum e fraction]Ordered By: Romeo Santana on 11-28-2023 Hematocrit (Bld) [Volume fraction] 40.1 % 34.0-46.4 [facility] Hemoglobin [Mass/volume] in BloodOrdered By: Romeo Santana on 11-28-2023 Hemoglobin (Bld) [Mass/Vol] 13.6 g/dL 11.8-15.4 [facility] Leukocytes [#/volume] correc terry for nucleated erythrocytes in Blood by Automated counOrdered By: Romeo Santana on 11-28-2023 WBC corrected for nucl RBC Auto (Bld) [#/Vol] 6.4 10*3/uL 3.8-11.6 [facility] Lymphocytes Auto (Bld) [#/Vo l]Ordered By: Romeo Santana on 11-28-2023 Lymphocytes (Bld) [#/Vol] 2.4 10*3/uL 1.00-4.8 [facility] Lymphocytes/100 WBC Auto (Bl d)Ordered By: Romeo Santana on 11-28-2023 Lymphocytes/100 WBC (Bld) 38.3 % . [facility] MCH Auto (RBC) [Entitic mass ]Ordered By: Romeo Santana on 11-28-2023 MCH (RBC) [Entitic mass] 29.3 pg 24.7-34.3 [facility] MCHC Auto (RBC) [Mass/Vol]Or dered By: Romeo Santana on 11-28-2023 MCHC (RBC) [Mass/Vol] 33.8 g/dL 32.0-35.0 [facility] MCV Auto (RBC) [Entitic vol] Ordered By: Romeo Santana on 11-28-2023 MCV (RBC) [Entitic vol] 86.7 fL 80-100 [facility] Monocytes Auto (Bld) [#/Vol] Ordered By: Romeo Santana on 11-28-2023 Monocytes (Bld) [#/Vol] 0.4 10*3/uL 0.0-0.8 [facility] Monocytes/100 WBC Auto (Bld) Ordered By: Romeo Santana on 11-28-2023 Monocytes/100 WBC (Bld) 5.8 % . [facility] Neutrophils Auto (Bld) [#/Vo l]Ordered By: Romeo Santana on 11-28-2023 Neutrophils (Bld) [#/Vol] 3.3 10*3/uL 1.8-7.7 [facility] Neutrophils/100 WBC Auto (Bl d)Ordered By: Romeo Santana on 11-28-2023 Neutrophils/100 WBC (Bld) 52.1 % . [facility] No Panel InformationOrdered By: Romeo Santana on 11-28-2023 Estimated GFR (CKD-EPI) > 60.0 mL/Min [facility] Creatinine Clearance (Chem N/A [facility] Nucleated erythrocytes [Pres ence] in Blood by Automated countOrdered By: Romeo Santana on 11-28-2023 Nucleated RBC Auto Ql (Bld) 0.0 /100{WBC} 0-0.5 [facility] Platelet mean volume Auto (B ld) [Entitic vol]Ordered By: Romeo Santana on 11-28-2023 Platelet mean volume (Bld) [Entitic vol] 6.8 fL 6.3-10.7 [facility] Platelets Auto (Bld) [#/Vol] Ordered By: Romeo Santana on 11-28-2023 Platelets (Bld) [#/Vol] 159 10*3/uL 150-450 [facility] Potassium [Moles/volume] in Serum or PlasmaOrdered By: Romeo Santana on 11-28-2023 Potassium [Moles/Vol] 4.2 mmol/L 3.5-5.1 [facility] Protein [Mass/volume] in Ser um or PlasmaOrdered By: Romeo Santana on 11-28-2023 Protein [Mass/Vol] 6.6 g/dL 6.4-8.9 [facility] RBC Auto (Bld) [#/Vol]Ordere d By: Romeo Santana on 11-28-2023 RBC (Bld) [#/Vol] 4.63 10*6/uL 3.60-5.00 [facility] Serum or plasma albumin/glob ulin mass ratioOrdered By: Romeo Santana on 11-28-2023 Albumin/Globulin [Mass ratio] 2.3 {ratio} [facility] Serum or plasma anion gap de terminationOrdered By: Romeo Santana on 11-28-2023 Anion gap [Moles/Vol] 10.4 mmol/L 6.0-15.0 [facility] Sodium [Moles/volume] in Ser um or PlasmaOrdered By: Romeo Santana on 11-28-2023 Sodium [Moles/Vol] 140 mmol/L 136-145 [facility] Urea nitrogen [Mass/volume] in Serum or PlasmaOrdered By: Romeo Santana on 11-28-2023 Urea nitrogen [Mass/Vol] 7 mg/dL 7-25 [facility] WBC Auto (Bld) [#/Vol]Ordere d By: Romeo Santana on 11-28-2023 WBC (Bld) [#/Vol] 6.4 10*3/uL 3.8-11.6 [facility] Coding Summaryon 11-14-2023 Coding Summary HTMLBase 64 RgzytudfGJn6dUg+PGhlYWQ +VX1VXLWaS89voBIexU1pZ5 NMTElOSywgQVBQTElOSyIgb mOiDK4ncZZhNINk IC8+HM2nQRFdJryxrWZjk0O 8uVI8R65ouc8yGCjdpRD1XC XnFrLhzzknw4qlaRm9NUpcD mluOyBt RYTtvR91LUB0fF58Cq53dCS btSPnc8afpKw6CaViVIXaFV A6jXtuLVhbq6EuYXGbI43wd DVjb7Y8 QLTzbYtuoOXkXoQjgGL2kG7 eFIoigltcg3hxvujqRne1qw 66wTYyg3T0lBG1W0BmblV3N GJvbGQg QjukpIQRfY3soqkpr6fluqx tAlBsWEYiIQz0UBn4BPJouW amCaNxQK70TTI8RFFmukTxJ 2FsLWFs zMfgItV9a4H4Xw9HT3SQVgc dQ4RJGUJRCSrioKR+PC90cj 47T1UjQofyBzc3PYZoWTR5z EA1uF3n OFLfEOkhe3K3sIJ7T3MfvvC mac8jb7gxMQDsCCjwL66ljX Ebv8A7ZZXdxMK9GZFhmIkjI iBzaG93 Oyc+SAFwbJjkn8CiWdsbp0o er4nfdWl4JlmiTSEmklVjwE fqTIV8c4OnMr9rKHCjdPK4f OH5mO0v GwMhFcT2PVmtL406PmYglDV cPqdjR14tG1ZhwNR+PHRyPj j1ZILzoEygHS1eS1CuNFXnw mctbGVm vLrcTP8dSNRhmatfJUSneA2 aQVIrD8s0MpAyXqP9YWdoT2 NlDCDdetyqUg13fJ6gXkXgI gP9RVko L2BowyS9RPUumZPiVCjcXJW 3Y56ci8P3QOXmSXHzTOR8sB T9nD9mkYlqpxtddYGupTpcc mVydGlj XTitIWoyI748LKSdpLvpMxH vZGluZyBEYXRlOiAgMDcvMj kvMjAyNDwvdGQ+QYUaHWR1d WxlPSAn uEPyIIurEq4teAutyOfzLE5 eZJLutkolKBZwwW5vBRCtpK IoaJzyRS0uTXFbglxpk882P iAxMHB0 RTAldDGqG2LchV2nKwJqMMM iGTGeW6BzhIHwCMdwU201RU wbSmT1UXAnueNmD1OeKRNvu WduOiB0 x3X0Ts1Vy1XoosklA2LhmDK xScJfGgamJBj2A6CeNhjhmB I+KC66CBGnJH05TDf3SGX5a WxlPSdi NENsJ2AfnS2tWzNiHUOxTXF kOyc+PHRhYmxlIHdpZHRoPS ziSASfRlNfaKnyER3mHi2bM GVyLWNv gTrauCWsYaKab0woSSTgHRn vDE8nrStjP3UhjDQ1HZYfn2 k6Ts51G17lP1GesEN+PGNvb CT7xDE5 wG4hJcMwKyD1HOhjL174DzY ioGQtVpmim2fpd2jjbOy1Yr Y2ORIjvqIuwIktXLM5k5ToI d64O23n IHdpZHRoPSIxNSUiIHZhbGl lgu5peL3mNp6+TSCblLO7oP B7pR1yGpNnNnL3AGkyN684M nRvcCIv Coalb5wph8yvnYd3YqJoNCL inuGluFsmZBY4e5MvLi21X4 LfzVghf3VaTuo0yl82aQXox 1F9dBE1 B1WbGQXjresgyYGllPyfCS1 kWIYwfntkDLRbhQ8kCTQlY7 b1AfQxDaG1JHnkE4SrthK4K GJvbGQg EBSnnDKYvK1jgoawf9duhfn aOlWnPHJlNXn7RQf7QFCujN gmQsXlENY8CmB1JMB6jISce U1gcGkf hxdopW5cSuk+WOH7uSPtkXE PZF2gHvoyuIK+LMVgIHB1gP ycGAesNZGjrW4aTDIcI3d1M iAwLjA1 TInkP3ZttqQ9WAHhsPLhQWM rsTCQpH3zfqfru3iknurgNa ZcBTBlKZi2JNi2LMBuwUhvB iBsZWZ0 UoK2FBO4zSQjpY0wrSzydmi zwC0vQvm+CwyolYlfJIL8GV q2Z8EjOqy3BZYukCycXE6zv GFkZGlu Sv8phQfzcHobUV0zMWFvwrx qw406PcSzd3tfAGDjgGBoVH hnTGJ4R01ba0Z1EMYdOAJbZ ME8oYS2 yL1qeBjmqonfgDJjaKpypjR gqCpuNIpdQQwuO043OHHcgL hgHwGsXYq7X6WbXdt2HMIti MdfQJ9m wCJhMAgwPc5hoOrsmZbcPX8 lVKOydfidm401NuZlb9nmCF UglGFtBHoqNEW9Y82pt8D8R CMwMDAw TKE8wAT5mE1jzIinlzwayPK mdDsgdmVydGljYWwtYWxpZ2 63UYRrqRaaZqSkxSh8M8UqV ki8VQEu pCyjFW5ziXRmAPrxQu4utXa yfJxrQY7tIWCwfdmpm983Nb Jxz6diEUGerXFlVYpqRPW7O 27dw9A6 IEWzEKHeZIA9eDZ6aZ4pdKv nbjogbGVmdDsgdmVydGljYW azOTftL229VILrzYzjYqTsf GllbnQg SBtaAGn8T3XhQiuofLQ+PC9 3YXYuEN22mUKquCTye3mbtQ q7NyRbZBMeVIT1zVmtIIpgh 3JkZXIt W54gjYStp8S9QOGgnCyicGA jAuXpfMC7wN3bYDsdpmnmm7 yctyhxWmbni8yaan23eP84K 29sIHdp ZHRoPSIzMCUiIHZhbGlnbj0 imL9bWx1+YROoqWP8gWO5iW 2uAZJiHnI9OPlnA783EoJtf CIvPjxj c9wnh4uoeNk7ZiH9WWCwngJ odBmjHIE3o8DeRh47P78kSP dpZHRoPSIyMCUiIHZhbGlnb s7gqR5z Ii8+ZAXfaAC1mLP1vC4sBdI hSkL6XBmlC407CpBqmAShNe uuX27eQ6IfuBW+NXDiGxj5V CBzdHls SB0wrVHyTPmoRe1bLYI3CqP aTaGgSBlbA0KcCBAvmljqqe lgcKM7ZXEbZRVcdO32Vs6hk DogMTBw sPNRsC5riwfoh4owammmWoW wHEYdWZy3LAy7PKMngUhjNj BuAIA6IcF4FLW1lZLbyC2vd Glnbjog zF8cX4NeSSJcgussNw65zA0 tPuQuDiS8BJlvSon+TUNDQU 5OLCBIRUFUSEVSIEVMSVpBQ kVUSDwv dGQ+BGFmHSL5iUwlWDnsUQJ wwB2jDSGlP9j7SbPnPhD1AU ggF8NcZTBjtmewTb07jL9zF iAwLjA1 EPpvB6VmhaN3BRTkwXHhETl oACT1C10fj2S8ICRwIDYlFE C3sKA9jH9xkPbcbaqrcHYit DsgdmVy pPreAMndOFcwJ698IOIeiHd cEjNhVaK1LkL6GVY7P8AfJu e3KLVkoNvrRL0orPUbDXfkR w8rsXqq lYtnWZ8uIVYrsjzgZFEndU7 bDMDjdRKihFtbHL7gEKHsfz olm970XtJqCOA8DIOqdRCxD 7VeeF4u MjAhEWIvHVUxF7OrdZPpIVf fN705WJhkWzH4RVDirdFqN5 TqYRPvoOgiUsL0a9Q9Jy9zD CBZZWFy czwvdGQ+XMBzLZS9eXlaDUh vZISdsV4wGQRxB0r1FoEhXl I9AQvxQ4BsPIQmzxxaEt83n A3pDvLr ShF5XWadP9QfdlQ0FXOshGI aGPidTOP3H49rf2M6WROnDC XmVGO2yMW3dA0jnAprlpgap GVmdDsg lsFbdNqjKWpzLRxgK574GRW vcDsnPkZFTUFMRTwvdGQ+PH AaLOX9yOnpACidVRPrwM5iI CXbR2w4 BeUgIrS6PCuoM2BgUTIfbrs yKz94yO4uMhVeZgT1MYhuK2 SwatN2JRIqwCQgYKboPCC2V 44ar5E3 PJRzJRYjXLM3vHM2sX2czZi nbjogbGVmdDsgdmVydGljYW xgVVoxM081LXSftAuoLsQkT IOgRP2v eTwvdGQ+HY11of96T9VkWdu xYbl3TFGfVYP0eGL4fC4eMV AyRWqca0F1iYQ6Y2FyuvOro k4ol9wv WDVtXQfuB81rsLVhb6A7IWO omNR3EEWphNjxOoTwdI31Zn c+CZIjhMklg3ZwNslpe7tso 0fxsJs6 CmNeWHLqsnEhnQtwDDG7h6Y oKm92Z90wDEmhGYJvDTScYN SyDPTsqVfitu7phV2qMf4+P GNvbCB3 fOP0xC5mOoMnIjP0IObvI11 3VxKzxCVwZvyjl4tzd6opdW r9McZuYJVzbkAxpHvhEXR9w 7MmIh84 C5MflNkts5PbNzj4sh98pCW tl4K2sYX8W2PaWQGnruetoG UaiZjaVE5hQHRavestNIWqv K3bVYEv W3d3WePtXlZ7XMmjZ6VlprU 6HIZgdVZbZUEzlYMUmZ3dkx srr6edhofzSmMvEYBbIHr5V Hc3JACu mKsyGhHaYPD6SbK6ZMZ5dXW djY3vzXmxjnbgnF5sMji+UG j5q2sqvCIxJV4ezLF5QL20Q V67xWGl s4F1bKC2E1AnGDBwfofknjk uhRE9DAFiTOWhmO73Af2jxC ecJj0zWDHlPEE9WELloHFyU 9AowZ3r EjSqCSSaIFEkY3PfyUGlPSd hK456TOieNgX1MRDtygNrY8 XxCFIwgNouQpV2p7F4Sm8WU M92GK96 KK08oZNmo7X7oWD8B5QhDGK ygvwzedwotRW2NCWoQCWfeT 46Jc0xsEceRr1tIFSvQXF2U FRpbWVz T8JdnN6gJtTbKGQjARZmR2H rfPSjVVjzL696SXjpSwX0ZY KyktOcZ7JqTNXxtEfmGqZ8g 9M0Uv0M Hs84JZ91JS55uTZyy2L9gXB 3N8YkLJUeytbwqehkiUJ1NI MxJAJtnV30Wk7ahIjyQf0wI CAxMHB0 VTWpaKUrD1LlvM6nYeTrEXW eAQFeL0AnoIFkIWsvR184VY gsIwS7QYYzjdKpL4IlTDGbh WduOiB0 w0R5Ky8RTBnuafw1B9PgFnt vdHI+HQ56ZTToBX47tAIbaU Ehu2sqbHm7UaAzUXVcEJE3b WxlPSdi b3J (more content not included)... [facility] Coding Summary HTMLBase 64 KnxaatdgPGj5jTc+PGhlYWQ +LI3XEDPyH11guVVxnA7lH3 NMTElOSywgQVBQTElOSyIgb fLwSS2gnOYmKGDg IC8+GZ5dEBYdCerhzEDxw4M 7qXE2K12lbj5zVLzdbBM4WX ErGjSxvuope5eitVw7FBmuO mluOyBt AYZqbW10JAU5bR08Ki27aQV eoTBgc4oecOe2ZbZwRIOaMB I7aRyhETxup6DeQZWtD52dj MVjl9L9 NFZprPphwGSqTyZnlQM3eM6 nMDghrbidt0zdnxzcQxh4gi 68bTAfi9O0aLD4U7XakrR7I GJvbGQg VdcabCWBkY8wkyldi8tamnq bVbDcONSyUNa5BAr1YCJqlD imRiVbIN59LMU0XSQezrAzM 2FsLWFs fWgvSxK6h3X5Jx7GI7NDMuw uE7BRNUPIKJbdaQK+PC90cj 50A3AeKbjgCkm3UPNnBZF5g II0rA7l VTOfGUoeh9M2pJK9A8LcydU isd8xq3lmUYYvHHekL18tiO Tth5W8DBAvvFB6CDXzxYtyX iBzaG93 Oyc+MTXleRnnq8PwQwvuo6m aq8dtoPp6AiwjOMNqrqAgsF ixHGW6h3TbCx3cMMQxpSY5z XG1mW2y UgGvZmV5HTicN440FsZrfYT kGzpsV31gO6UwpOO+PHRyPj s5KCChfHyqVD8pP1KbAFIqo mctbGVm wDjpPZ6fHUHhfzhyNLRdqI0 gXFWtM2o8NcZjDxP9EUodW9 FrMUDnkccqWp07pH0oToNbP tS3MHfu E1RebaS9TBFjbBInMYisUWV 4N05hn7I8MMRmSTTzDIQ7rL G6mU0pqYhovttalQTlqGlaw mVydGlj YCaiIMlsC897JOVttPanRwD vZGluZyBEYXRlOiAgMDcvMj kvMjAyNDwvdGQ+DTGzDZH4q WxlPSAn tXTaUOjfMd6myIsoxSjqQI4 oTEWmynihYOBwlB8vNKLfjB XyeEbdOM2lREWphnzwl051P iAxMHB0 UZEhkHSvV4MxyY0mQlEiAOH hJVTrL5LecZYlKNlhP930XB tvAwO6BOGnveSeQ0XaMZIbn WduOiB0 o0S3Yz4Bo6UfjgbfB0MnzBT rOfIeVofvMFm1Z2CoFpvvqT I+TI34IWAkWX19WOi0CQH2v WxlPSdi OKLkK3WhmG8nQpQrVYGfNEY kOyc+PHRhYmxlIHdpZHRoPS xoVYKrMpWbpCbgOS2tHe4nQ GVyLWNv dSzfoROwUzHba5noAJEqWQg tLS2fbLpaX9WxpQK5ESDgy1 x1Zc42H12gH6RhuLA+PGNvb TI4eQS9 gT8eZlQmPvU7RQiyD365OeS ztXDcPvsso3onh4nccKc9Fs J3XXRvjcNaxDsaUIY2w5MnN w51V68f IHdpZHRoPSIxNSUiIHZhbGl cpc8puY9yGz1+WIVdzVP4rC V8iE6lQyOsFqM5VTbvF051B nRvcCIv Lelwd3vkv2jgeFj9OxRtNRY uroBxyCsuAGW5d5WnIs27D7 NqqTryf1GlWff6kh03kFVsi 6X6nEB4 X0DdBZLnqcifeNTvwJmgLD4 cNZYrgfjpIUQzgI4pOOWsD0 i0FuQvYyO8RLhyD4BecyZ0J GJvbGQg ORZjvXWCaR1bxchyh9uacla hRsZyPWTlFDm2QRl6OYRzxW ckKeOsOGB1EfZ8WKJ7fUCbi G0wjWnu zytycX1qPih+OLG2mWXrsRW NVB9kJgvvtPG+TTNyECA6zI lhZOdaSAUtmV0nXJSnY3v3M iAwLjA1 BBsbC9CtgzN4YEItwRBfZVT unEEQhL4mpbzbp7ljzjxbYq NqBGEpXFz8RMo6SKGnpEtoM iBsZWZ0 XyF5KXY3kFIpyT6zhRjskzx zpW5sMyu+XknhcIpaRZH6YP m0K9BgOxn0APYwmYivVU8uj GFkZGlu Hz9vyKyidZurGE8vFFAydqm tm375McUsn9wxIDDqfUJcUV zrPXV1Q91gr5L6ALZpTJIpF LD9tNB9 rA6bqZgxbbibgQUmaCjcgtD lmPogTVcqKNnnS590KINadO npNmTtICr8Q4RmPyr4JSVox OdlEU7j nMLkAXeaGi8afYoruOfyHO6 oPQRqzwgon148QqOtt8gsOL AirKUwHVhbRJY9T46yp2M5X CMwMDAw DYV1aMU6rM9xzIonycotlDE mdDsgdmVydGljYWwtYWxpZ2 13PNRbmBawSfVdsEq8A9VhI uh8DUHs pAtjFB4akRLlDEybNh7szSe ygTlwPH2bLLTxknqlg024Ix Tyd6zbFXOmjPLvJJiwXBM2Y 58nt1F5 OWHwYMBfKWX4lWH6gO4tzLm nbjogbGVmdDsgdmVydGljYW ncEHzkI709YAGooFczFqOzw GllbnQg IXhiOTo2Z2EjMjkkfJI+PC9 6KEJpTZ74uPWkiHRab6ymeR z3SqAyBVFdDBI8wNrfRNllh 3JkZXIt C21vzOPoh6K1QPPgaSqofOO pAsLusWR1pY6yVAdsitnwa0 jezjaoUfztg2tgcl22eT94Q 29sIHdp ZHRoPSIzMCUiIHZhbGlnbj0 wpZ9mQm0+WBBekDY4sUD6kV 6xBHWfJvT1BZhjS977HqFso CIvPjxj v3qyw5pklDf2CnR1KNRgxjB kaOshWWN2k3ZtPq25C09bAK dpZHRoPSIyMCUiIHZhbGlnb w9wjH5r Ii8+ABZhtMU6pIF8cX6hHlP iWhJ1ZGdwV715SiGdkJTsAc xtX93vF1BmwGV+ZXKvVfw1L CBzdHls ET2orLUiRNtgPx1hMMC6BfG gJsBpCVxtL7BlWPEyoxyzkd hbfTU2YCJaBXArpG65Lg5ce DogMTBw zQEHhA9qxqarh3gfefthNnD wHNUlYDt8ORi4SKQnrKtiRj IvIUP8YmG0BRJ1oFWqgV2aq Glnbjog kM8oT3EfCTJrhbobJt23xK9 fFjWaOcK2TIlfExa+TUNDQU 5OLCBIRUFUSEVSIEVMSVpBQ kVUSDwv dGQ+SNBcPOF2uHeiOXjaTGW yfS6cTCIkT1o1JqYdZmK1FG xiR0VeCBLcdyiwSf97zA9iH iAwLjA1 OOnuK3FmkjC7VGDdnZMeORs jYMA9C58cr4S1UBSwAEIjXZ X1qGB3xC0vlAhngpxmoUDnv DsgdmVy jSgnRGxdMGfgL774CTScpHi xLuMmYwX5BiY3CZP1B9BeGa j9PGKzwQocCA9tvYLpDWwwH j5arSlh jZpkQF9cTABvlygdTKGoqT3 iIKRevOUcjGipRX0pUPAluj rof352QcNrRTF5XRAviRHeG 1HvqW1j YlBzZXRwKGNcV7TxsIByYKn xV165SUcwVgW1MSMpziTlQ6 LpCLOssAucRzC1x7J8Uk5gB CBZZWFy czwvdGQ+OXKzEBM4kIsgDDl oQGKvfD7aXLVcW9l5HzWlUt T5YMlfW8DgQSYercnhDh35f Z3eAvZc NxZ8KKtiG0VhylE8OSNhxNW qOVbfGMV4K00mx2B1NGKbOQ AmMUG3eNU7lQ0jeMlairigq GVmdDsg ooZnsFwoMFckVKgiR215HTO vcDsnPkZFTUFMRTwvdGQ+PH BiNYT4oCiqXVjxGCHreB1bW NNxL3q7 CnPtKzA0WXwkG5SqLVGjihy gIt13yE6iUjKxJuB0XUucZ1 CepyV5XTIenOWsFKclLNT2J 39ns4R9 ZRKkDKMsTOM4iSA3iL9icFe nbjogbGVmdDsgdmVydGljYW fxGQmiU409YGBakUdkGoCnM XDnBX3k eTwvdGQ+MM66uo17M6AsDxd tRgd6TIGzVUW9qJV2hZ0nPY LkKRwpt8J0hZZ7W9CqnaCjb z8ct7gi BIVjQPmcX99abWBqj0E6SHP bnFX6WQWvwYplKgNsjX27Ne c+GLEhmBaoo2EjDiubw7dbc 8zsgWh3 FpGwWRByviRuqRzwKIU3m4G iGb04C99oGBdjPRFdXDOdXV TuCTQfsPgksb9jjF0gIp3+P GNvbCB3 yWS9xB0uZhHzIjM7LAfbM72 9QvTcgYFlWpntv6vdc0smwU r5VsAtHIDlhyNepLtmYDW0h 2QlSm96 G9HdbXzig5YcTel7aa80fRD mw1R3kYD8I1CuHZJjhkdmyL SpcOvdJO4aGEGuwnppVOOmv J4eIOAo P0d9FqPiIzV9ZIgqF1DdygM 8OSIjnJVbJYKplBQKvA4chh vvp5vdjszgKcWbZRZcROi2A No7CCDq pYgiTbPdWDX0PpH2ZRQ2bAF nhF6vwIfuaneugM9zIbf+UG b4i4ttfGWwDE5iiZI1WK88K Y71kROm x0W9kUY5P7IrKUKtgkmjmgp zzJK4GDIhKEMfxY40Zd4rbS saXi2yNWAcOEI0HUBxqQFhV 4NklE9e ChZzYEWuRILuV5ZerBIjSDw dW182PHgpVhP5GOBbctGaK4 MtNRCinJncYeE1q1A0Ae8YM N52QW79 DO00gSRga4Z3mZE3C4AqMAG spvgxerpaqUY8MDPoLEUznB 12Dx6taWneNr4nIJAoQZO9Q FRpbWVz T5EyjZ9cFfSrREBxWTHlC5M daGGnWPyqK138PCopEzL8IO CjjeWoG6LxNWChcWgtGzG1a 2F6Wl9E Ae53SJ43MP13nHFfg7Y6fJH 0W7HeIGPlznbdkkbplCL5AD FkZJKfzA43Dm3qlNqkQi8hF CAxMHB0 WUPilQTsQ8HbzJ4bCgHlICE cXBSlC0ButNBqFPewU214RX ezHpT5ASGvwnQsT3JeHTDrm WduOiB0 u1U9Rh3ZVFsbryc2C5PdFki vdHI+PH18LCJnUP07oLKqvM Ldn6lylBw9YlRgMJSfYRJ3b WxlPSdi b3J (more content not included)... [facility] Provider Orderson 11-09-2023 Provider Orders [id number] [facility] Chlamydia/GC Amplification L Con 11-04-2023 Chlamydia trachomatis, AC LC Negative Invalid Interpretation Code Negative [facility] Comment on above: Performed By: #### 7 [id number] #### [facility] (DEFAULT) [address] [place] [id number] Neisseria gonorrhoeae, AC LC Negative Invalid Interpretation Code Negative [facility] Comment on above: Result Comment: Perf ormed At: =G [facility] [id number] Ivan Calvin MD Ph:[phone] Performed By: #### 7 [id number] #### [facility] (DEFAULT) [address] [place] [id number] Consent Formson 11-03-2023 Consent Forms [id number] [facility] ED Note-Nursingon 11-03-2023 ED Note-Nursing Fluconazole 150mg ta b called into [facility] Patient contacted and notified of the results of her culture and the prescription that was sent for her. Instructions on how to take the medication was given, patient verbalized understanding Normal [facility] .Auto Diff 111-02-2023 Auto Allen % 9 % Normal 12 [facility] Comment on above: Performed By: #### 1 [id number] #### [facility] (DEFAULT) [address] [place] [id number] Baso Abs# 0.0 x10 Normal 0.0-0.2 [facility] Comment on above: Performed By: #### 1 [id number] #### [facility] (DEFAULT) [address] [place] [address] [id number] Basophils/100 WBC (Bld) 0.2 % Normal 0.2-2.0 [facility] Comment on above: Performed By: #### 1 [id number], [id number], [id number] #### [facility] (DEFAULT) [address] [place] [address] 96343 Eos Abs# 0.3 x10 Normal 0.0-0.4 [facility] Comment on above: Performed By: #### 1 [id number], [id number], 9160765 #### [facility] (DEFAULT) [address] [place] [address] 62243 Eosinophils/100 WBC (Bld) 9.0 % High 0.9-4.0 [facility] Comment on above: Performed By: #### 1 [id number], 6268800, 4511071 #### [facility] (DEFAULT) [address] [place] [address] 41742 Lymph Abs# 0.4 x10 Low 1.3-2.9 [facility] Comment on above: Performed By: #### 1 [id number], [id number], [id number] #### [facility] (DEFAULT) [address] [place] [address] 25766 Lymphocytes/100 WBC (Bld) 12 % Low 14-48 [facility] Comment on above: Performed By: #### 1 [id number], 6260432, 7608443 #### [facility] (DEFAULT) [address] [place] [address] Allen Abs# 0.3 x10 Normal 0.0-0.8 [facility] Comment on above: Performed By: #### 1 [id number], 8460370, 8502815 #### [facility] (DEFAULT) [address] [place] [address] Neut Abs# 2.4 x10 Normal 1.5-9.2 [facility] Comment on above: Performed By: #### 1 [id number], 4173013, 7402343 #### [facility] (DEFAULT) [address] [place] [address] Neutrophils/100 WBC (Bld) 70 % Normal 44-88 [facility] Comment on above: Performed By: #### 1 [id number], 8586307, 5344570 #### [facility] (DEFAULT) [address] [place] [address] C Genitalon 11-02-2023 C Genital Heavy growth of Yeas t No CARLOS performed on this organism No growth of GC at 3 days. 4+ Gram Positive Rods Few Yeast No WBC's seen. Gram Negative Diplococci not seen. Normal [facility] Comment on above: Performed By: #### 7 [id number] #### [facility] (DEFAULT) [address] [place] [address] CBC w/ Auto Diffon Erythrocyte distribution width (RBC) [Ratio] 13.7 % Normal 11.5-15.0 [facility] Comment on above: Performed By: #### 1 [id number], 0054492, 6747020 #### [facility] (DEFAULT) [address] [place] [address] Hematocrit (Bld) [Volume fraction] 40.5 % High 33.7-40.4 [facility] Comment on above: Performed By: #### 1 [id number], 4436236, 9848153 #### [facility] (DEFAULT) [address] [place] [address] Hemoglobin (Bld) [Mass/Vol] 13.7 g/dL Normal 11.3-15.9 [facility] Comment on above: Performed By: #### 1 [id number], 7954574, 3491821 #### [facility] (DEFAULT) [address] [place] [address] Man Diff? Auto Invalid Interpretation Code [facility] Comment on above: Performed By: #### 1 [id number], 5855530, 4394026 #### [facility] (DEFAULT) [address] [place] [address] 23617 MCH (RBC) [Entitic mass] 29 pg Normal 24-34 [facility] Comment on above: Performed By: #### 1 [id number], 4079315, 8870352 #### [facility] (DEFAULT) [address] [place] [address] 14130 MCHC (RBC) [Mass/Vol] 34 g/dL Normal 26-37 [facility] Comment on above: Performed By: #### 1 [id number], 4333148, 8085061 #### [facility] (DEFAULT) [address] [place] [address] MCV (RBC) [Entitic vol] 85 fL Normal 81-100 [facility] Comment on above: Performed By: #### 1 [id number], 0127967, 3498231 #### [facility] (DEFAULT) [address] [place] [address] 96733 Platelet 106 x10 Low 138-427 [facility] Comment on above: Performed By: #### 1 [id number], 0048580, 5199545 #### [facility] (DEFAULT) [address] [place] [address] 29007 Platelet mean volume (Bld) [Entitic vol] 7.0 fL Normal 6.3-10.2 [facility] Comment on above: Performed By: #### 1 [id number], 8522836, 0290364 #### [facility] (DEFAULT) [address] [place] [address] 76419 RBC 4.74 x10 Normal 3.70-5.30 [facility] Comment on above: Performed By: #### 1 8519806, 0014837, 9237973 #### [facility] (DEFAULT) [address] [place] [address] 53030 WBC 3.5 x10 Normal 3.5-10.5 [facility] Comment on above: Performed By: #### 1 [id number], 9112402, 0965662 #### [facility] (DEFAULT) [address] [place] [address] 01705 CMP Standardon 11-02-2023 eGFR Non AA >60 Invalid Interpretation Code [facility] Comment on above: Performed By: #### 1 [id number], 3865820, 0404842 #### [facility] (DEFAULT) [address] [place] [address] 50148 eGFR AA >60 Invalid Interpretation Code [facility] Comment on above: Performed By: #### 1 [id number], 5699490, 0911718 #### [facility] (DEFAULT) [address] [place] [address] 06002 Albumin [Mass/Vol] 4.1 g/dL Normal 3.5-5.0 [facility] Comment on above: Performed By: #### 1 4668102, 1335428, 4576241 #### [facility] (DEFAULT) [address] [place] [address] 02626 Albumin/Globulin [Mass ratio] 1.7 {ratio} Normal 1.4-2.6 [facility] Comment on above: Performed By: #### 1 2957195, 6292370, 1841952 #### [facility] (DEFAULT) [address] [place] [address] 09650 Alk Phos 40 IU/L Normal 32-91 [facility] Comment on above: Performed By: #### 1 [id number], 6195233, 3893142 #### [facility] (DEFAULT) [address] [place] [address] 38696 ALT [Catalytic activity/Vol] 20.0 U/L Normal 14.0-54.0 [facility] Comment on above: Performed By: #### 1 3416636, 6070280, 8313118 #### [facility] (DEFAULT) [address] [place] [address] 00205 Anion gap [Moles/Vol] 9.5 mmol/L Normal 5.0-19.0 [facility] Comment on above: Performed By: #### 1 3641917, 0713727, 3018423 #### [facility] (DEFAULT) [address] [place] [address] 12347 AST [Catalytic activity/Vol] 19 U/L Normal 15-41 [facility] Comment on above: Performed By: #### 1 [id number], 3007404, 6770056 #### [facility] (DEFAULT) [address] [place] [address] 43321 Bili Total 0.7 mg/dL Normal 0.3-1.2 [facility] Comment on above: Performed By: #### 1 9766544, 2901248, 1581148 #### [facility] (DEFAULT) [address] [place] [address] 04366 Calcium [Mass/Vol] 8.4 mg/dL Low 8.9-10.3 [facility] Comment on above: Performed By: #### 1 [id number], 7552484, 8204836 #### [facility] (DEFAULT) [address] [place] [address] 25674 Chloride [Moles/Vol] 109 mmol/L Normal 101-111 [facility] Comment on above: Performed By: #### 1 [id number], 9782141, 0818547 #### [facility] (DEFAULT) [address] [place] [address] 73626 CO2 [Moles/Vol] 21 mmol/L Normal 21-32 [facility] Comment on above: Performed By: #### 1 [id number], 9459653, 9704321 #### [facility] (DEFAULT) [address] [place] [address] 17599 Creatinine [Mass/Vol] 0.71 mg/dL Normal 0.60-1.30 [facility] Comment on above: Performed By: #### 1 9628658, 5916817, 2313790 #### [facility] (DEFAULT) [address] [place] [address] 40912 Globulin (S) [Mass/Vol] 2.4 g/dL Normal 1.5-4.3 [facility] Comment on above: Performed By: #### 1 5799192, 2104013, 3906326 #### [facility] (DEFAULT) [address] [place] [address] 93382 Glucose [Mass/Vol] 95.0 mg/dL Normal 74.0-118.0 [facility] Comment on above: Performed By: #### 1 2984863, 2314105, 4139535 #### [facility] (DEFAULT) [address] [place] [address] 19583 Osmolality 270 mOsm/L Invalid Interpretation Code [facility] Comment on above: Performed By: #### 1 6502877, 1542707, 3205471 #### [facility] (DEFAULT) [address] [place] [address] 34351 Potassium [Moles/Vol] 3.5 mmol/L Low 3.6-5.1 [facility] Comment on above: Performed By: #### 1 [id number], 0773461, 9435068 #### [facility] (DEFAULT) [address] [place] [address] 61135 Protein [Mass/Vol] 6.5 g/dL Normal 6.5-8.1 [facility] Comment on above: Performed By: #### 1 7364954, 2290504, 1674402 #### [facility] (DEFAULT) [address] [place] [address] 60462 Sodium [Moles/Vol] 136.0 mmol/L Normal 136.0-144.0 [facility] Comment on above: Performed By: #### 1 1451563, 9390191, 3573365 #### [facility] (DEFAULT) [address] [place] [address] 78628 Urea nitrogen [Mass/Vol] 7 mg/dL Low 8-26 [facility] Comment on above: Performed By: #### 1 [id number], 1935992, 1658059 #### [facility] (DEFAULT) [address] [place] [address] 67674 Urea nitrogen/Creatinine [Mass ratio] 9.8 mg/mg Normal 4.6-16.2 [facility] Comment on above: Performed By: #### 1 8348694, 2031777, 4881932 #### [facility] (DEFAULT) [address] [place] [address] CT Abdomen/Pelvis w/ Contras ton 11-02-2023 CT [...] DO 11/02/23 3:37 pm Technologist: Adama DUFFY [facility] ED Clinical Summaryon 2023 ED Clinical Summary [facility] - Emergency Department [address] [place] [address] 72165 ED Clinical Summary PERSON INFORMATION Name: JAZ SANDERS Age: 28 Years Sex: FEMALE : 1995 MRN: Acct#: Visit Reason: Abdominal pain; Nausea; FLANK/HIP PAIN, FEVER Arrival: 11/02/2023 07:57:28 Discharge: 11/02/2023 13:31:00 LOS: 000 05:34 Check In: 11/02/2023 07:57:28 Checkout:11/02/2023 13:31:00 Address: [address] [facility] [address] PCP: Amanda Ford CNP PROVIDER INFORMATION Provider Role Assigned Unassigned Danita Dowling HEALTH INFORMATION DIRECTOR Nurse 11/02/2023 08:07:27 Narda Phillips MD ED [...] With: Address: When: Amanda Ford CNP [address] [place], [place] [id number] Within 3 to 5 days DIAGNOSIS: 1:Hip pain Patient Understands: Yes - Patient/family/caregive r verbalizes understanding of instructions given Comment: [facility] ED Patient Summaryon 024 ED Patient Summary [facility] - Emergency Department [address] [place] [address] 81625 PATIENT DISCHARGE INSTRUCTIONS Patient Information Name: JAZ SANDERS Age: 28 Years Date of : 1995 Reason For Visit: Abdominal pain; Nausea; FLANK/HIP PAIN, FEVER Arrival Time: 11/02/2023 07:57:28 Primary Care Physician: Amanda Ford CNP Attending Physician: Narda Phillips MD Comment: Visit Diagnosis: Diagnoses This Visit Abdominal pain ([id number]) Hip pain (M25.559) Nausea ([id number] ) The Pharmacy at [facility] is open Tuesday through Tuesday [...] alcohol and/or drug addiction problems; contact the [facility] 08/11 Crisis Hotline -Text 4HSGS nq [phone]. If you received any narcotics, sedation, or [...] any legal documents With: Address: When: Logan GARAYAmanda [address] [place] [address] Within 3 to 5 days Medication Information: The exam and treatment you received today in the [facility] Emergency Department were for an urgent problem and are not intended as complete care. It is important for you to follow up with a doctor, nurse practitioner, or physician?s advertising assistant manager for ongoing care. If your symptoms become [...] so we can reach you if necessary. [facility] Emergency Department has provided you with a complete list of medications post discharge. Please inform your speech pathology assistant/provider of your visit and for further instruction on these medications. Any specific questions regarding your chronic medications and dosages should be discussed with your primary care physician(s) and/or pharmacist. New Medications [facility] [address] [place], [place] [id number], [phone] cyclobenzaprine (cyclobenzaprine 10 mg oral tablet) 1 [...] lidocaine topic (more content not included)... Normal [facility] Extra Green11-02-2023 Tube Collected Yes Invalid Interpretation Code [facility] Comment on above: Performed By: #### 1 [id number], 9807698, 1928213 #### [facility] (DEFAULT) [address] [place] [address] Test Urine U Preg Negative [facility] Comment on above: Performed By: #### 7 [id number] #### [facility] (DEFAULT) [address] [place] [address] 61645 U Preg Internal Control Pass [facility] Comment on above: Performed By: #### 7 [id number] #### [facility] (DEFAULT) [address] [place] [address] 12050 UA [id number] 11-02-2023 UA Bacteria Trace [facility] Comment on above: Order Comment: Urina lysis Microscopic order added on by Stop Being Watched Expert Rules system. Performed By: #### 7 [id number] #### [facility] (DEFAULT) [address] [place] [address] 85852 UA Mucous 1+ [facility] Comment on above: Order Comment: Urina lysis Microscopic order added on by Stop Being Watched Expert Rules system. Performed By: #### 7 [id number] #### [facility] (DEFAULT) [address] [place] [address] 21947 UA RBC None Seen [facility] Comment on above: Order Comment: Urina lysis Microscopic order added on by Stop Being Watched Expert Rules system. Performed By: #### 7 [id number] #### [facility] (DEFAULT) [address] [place] [address] 67007 UA Squam Epi Few [facility] Comment on above: Order Comment: Urina lysis Microscopic order added on by Stop Being Watched Expert Rules system. Performed By: #### 7 [id number] #### [facility] (DEFAULT) [address] [place] [address] 42973 UA WBC None Seen [facility] Comment on above: Order Comment: Urina lysis Microscopic order added on by Stop Being Watched Expert Rules system. Performed By: #### 7 [id number] #### [facility] (DEFAULT) [address] [place] [address] 73409 UA w Culture if Ind Standard on 11-02-2023 Breakpoint UA [facility] Comment on above: Performed By: #### 7 [id number] #### [facility] (DEFAULT) [address] [place] [address] 07985 Color (U) Dark Yellow [facility] Comment on above: Performed By: #### 7 [id number] #### [facility] (DEFAULT) [address] [place] [address] 04776 Culture? Not Indicated Invalid Interpretation Code [facility] Comment on above: Result Comment: Resu lt created by rule GL_MAGR_ADD_UA_CULT Performed By: #### 7 [id number] #### [facility] (DEFAULT) [address] [place] [address] 86269 Glucose (U) [Mass/Vol] Negative Normal [facility] Comment on above: Performed By: #### 7 [id number] #### [facility] (DEFAULT) [address] [place] [address] 87102 Ketones Ql (U) TRACE Normal [facility] Comment on above: Performed By: #### 7 [id number] #### [facility] (DEFAULT) [address] [place] [address] 17344 Micro? Indicated Invalid Interpretation Code [facility] Comment on above: Result Comment: Resu lt created by rule GL_MAGR_ADD_UA_MICRO Performed By: #### 7 [id number] #### [facility] (DEFAULT) [address] [place] [address] 51303 UA Bilirubin MODERATE Abnormal [facility] Comment on above: Performed By: #### 7 [id number] #### [facility] (DEFAULT) [address] [place] [address] 71280 UA Blood Negative Normal NEGATIVE [facility] Comment on above: Performed By: #### 7 [id number] #### [facility] (DEFAULT) [address] [place] [address] 27682 UA Clarity SL CLOUDY Abnormal CLEAR [facility] Comment on above: Performed By: #### 7 [id number] #### [facility] (DEFAULT) [address] [place] [address] 68017 UA Leuk Est Negative Normal NEGATIVE [facility] Comment on above: Performed By: #### 7 [id number] #### [facility] (DEFAULT) [address] [place] [address] 55817 UA Nitrite Negative Normal NEGATIVE [facility] Comment on above: Performed By: #### 7 236388 #### [facility] (DEFAULT) [address] [place] [address] 45444 UA pH 6.0 Normal 5-8 [facility] Comment on above: Performed By: #### 7 [id number] #### [facility] (DEFAULT) [address] [place] [address] UA Protein 30 Abnormal NEGATIVE [facility] Comment on above: Performed By: #### 7 [id number] #### [facility] (DEFAULT) [address] [place] [address] UA Spec Grav >=1.030 Normal 1.001-1.035 [facility] Comment on above: Performed By: #### 7 [id number] #### [facility] (DEFAULT) [address] [place] [address] UA Urobilinogen 1.0 mg/dL Normal 0.2-1.0 [facility] Comment on above: Performed By: #### 7 [id number] #### [facility] (DEFAULT) [address] [place] [address] Urine Source Clean Catch Normal [facility] Comment on above: Performed By: #### 7 [id number] #### [facility] (DEFAULT) [address] [place] [address] Wet Mount.on 11-02-2023 Wet Mount. Negative Normal [facility] Comment on above: Performed By: #### 7 [id number] #### [facility] (DEFAULT) [address] [place] [address] Coding Summaryon 10-26-2023 Coding Summary HTMLBase 64 YkgzrgpzLFi7oWy+PGhlYWQ +KW7SFJDhX99yaONraA3bL2 NMTElOSywgQVBQTElOSyIgb mHvZT5goIMqILYv IC8+PG0gSLHtQsncoBIqd8A 5jOB4D87vug7xTLfclCN7TB WbCjHhuoege5pruBh4CQznO mluOyBt YGAycG77JYE2dR95We36oLO ypRGba0ivpEx5EqNoYVCdVC G0fMbdQWyef5LwIMHeN46fu JWdy6E9 LMUecCcayJGgMxBmrQD4tF4 dQHjqvtflo7wjcvhiQbu3fi 71lDAdv5T7eQB2S9YdupG7D GJvbGQg BufsvPEMsK4vhkvfj7shdgr vHiMsLDQeJJj4OQx3WOXneN eyNiRnCE22UDP2TNKyxwDnV 2FsLWFs zDsmRhG9k7C7Ar4PV6NECjm dA4WRWYNDZHtuuKE+PC90cj 53I5WaKaleKze5VXQeGXY8s EW9kK4y PZMiKIalq5I3wQQ7U7SyupW hqq2cb3fuFSTdNHbbB37qyA Jna1L0KFAjzNS5SUXvjRbzG iBzaG93 Oyc+NXRoiVvjo7RzKueco5n lu6tccNa9EiiyOTSpekFwvP kpITA3z8BfBv7hZZUvnVH3s EO4tD5w ImFdCnL4HXrnM315HrFrnPI fHpckK98wF7MmgDD+PHRyPj h5UZAhuJujDA0dW4MtBLBgs mctbGVm zQwlMS1aUIYvcnmoPOYrzV2 oZUBqM0b0LyBbCvZ0OQekJ0 DrAABtsxrqRl97jX4xLoYuX nO9BDsd Z7UyirJ3WIVavEUhMNgtNGA 7C96bn3J4AZPiHGYiNWV6cK N3kT6xgOaujqkytGUunGled mVydGlj QCctIIxqO932GIEfoTppAdA vZGluZyBEYXRlOiAgMDcvMT AvMjAyNDwvdGQ+GBTnZDW8p WxlPSAn dEWxIRbqHw2rcDgbtHlcHL0 aLZVdiscvSRXlrW8tMESckU WuhLovHR8sTQXczzoqp520D iAxMHB0 KXOgoCTpR9AjqI3dXjJoRDM xOIQnP9RizJUcLWaeA848QS ghRfT5KKQiksOwP8QcNJDgv WduOiB0 p9A8Xv1Pl9NwgrdwR7DzoEN ySiLcPbgaHGo3O5AeHfxgjY I+HB51EBCtZE99AIn0CRZ1l WxlPSdi KKYjZ5PzxJ9oZuKoUMKcDWL kOyc+PHRhYmxlIHdpZHRoPS bvFTQqLmBpoPvdOR7wAx7pY GVyLWNv bVelwMGuTmWrw7jtTLGaKQy wAV2izPwkY7WqpPQ2FWXox1 b2Us99P78pH2VdqIV+PGNvb LK0yBP4 vX2sFtNmAbM2PEmoV797KfY uxKCiRawsp0xgj3yvvUw4Ni Q4ODVidbPikFalCGH7k0PlN f83S52o IHdpZHRoPSIxNSUiIHZhbGl lkp2utK5zKc0+PREzmNB0pF V1eP0aKrQlJxZ9DIdaL161P nRvcCIv Symqw5yzx5xitRi1MfCbHSH ootNknEdxGSS8j6DzQw51V9 CioElcj4JcMjs8ou47cBFgu 8K4cWO6 B8KgXIDvpkeqpVAjsFmmPP8 tDEVisjzgIJIcrF5oGNCdT4 i1UvJqSzU9LDonO3DvtrM2J GJvbGQg UNFtbTBKqZ7wdhzen3ymavl zWkDcVNOzYRn9COk3SQKloT aeEwJsGRB6RfS4VHA4kFOou E7teEsp okeciB3wRcj+ZTK8cICinJL MII3oXduhuKA+AHPxWXB7lB zeTIoqYOYuaN2dNEQlR6y2F iAwLjA1 UYjuM4PbndO1TUXraZCsFNM luQUPkC5fbalaw8fbhhmqBz KzKFZeZVi0KWl7DLPzjOpqF iBsZWZ0 RsN9KHP9uVQstN7mgMyuqpj yzE7kUiz+IvqnbSikPPE7QQ o8A6KmIyt0WKSqjYsiHV5lk GFkZGlu Qi2evBvfhEcqUD5fEYIyfhe mb548BqNus9exVYMptWCtAT qqJEY3H79js4K9HXGyXWGhY TW3cYK5 dL3ugCspmuxhwLImnCybhzT stDkiOQinPJvmB612MUXrvU vnBvVuCKc4T6IwIyd6CNYna SdbST0z fNGqQIeuBc8myMsykAkdIB7 zWTCtwaaop791TxCee7riNZ EogBNvUPkwZQW5Z39cm5G8R CMwMDAw IQJ1sOT8rT4cyVzrbpfjwUP mdDsgdmVydGljYWwtYWxpZ2 70EJMpnOmwMpXyeIg0U7ZfD ay4WLKq xChqMZ6lpBZjHEraZh2urAi exAviNT7pHZLahulwi865Wc Xmo0kqKNCcyKJnMSmaEGN9R 88nc3U4 BFGpZFCdCYT5mEI1eK3kkQe nbjogbGVmdDsgdmVydGljYW rsMVxuI304BJDacTrdDoMuu GllbnQg LSdkWYg8A7LcZurqzBG+PC9 1EUBjLS27fXKqoWXix5vzwZ l6GcMoZUJnEPQ6pTxkZVhzo 3JkZXIt Y12rfMBod5A8AUSlsYlvfXP eDfVysQF1vE1pNQdnddpip0 gmvrngZdxlo3twax19zV38D 29sIHdp ZHRoPSIzMCUiIHZhbGlnbj0 tuZ1nXp6+QDUzrRG6nCG5iQ 1yVZGrBhR7QGlgZ338WjOcs CIvPjxj i4iwt4fzoPp3JvD2LQIughJ fvPgwLLL3t3UuZk66P95cHS dpZHRoPSIyMCUiIHZhbGlnb d3gvO6j Ii8+JPUasUM5fHE1kF4qWeB dKeR7OPwfI717BzZiaEEsHl xbO62qQ6LayAJ+KBZcQvu8K CBzdHls ZG3mmVUeCRbbIj3eORB0KfF fLkEyATmnT0RqOTGtlaradc bdyZV8TTBoOQMmxZ65Wh1es DogMTBw oRAMfM7jrmncb1pzgnbgHlD gDVZkYBo6JXc4JBVuhOgnMb ArNWF1LyQ9ECJ4oJBihU0ie Glnbjog kB3jR6JnIGOfuraoTo39zF3 pQuDyRmY7SWwwZuy+TUNDQU 5OLCBIRUFUSEVSIEVMSVpBQ kVUSDwv dGQ+BWWoTHE6gAzxAXjuBGY heO8ySNFzX8h7YcCdMtG6JK gmE3HrIHBmuvvwQb06fF3xG iAwLjA1 FDfiZ1TmwvI5WLThkDVcUUs xGUU6J23dy3T1PBJtXSMjTQ I0hJK9kI1cfJcgrgqllGGdf DsgdmVy bIeoDGfcYArrP869PLZyhJs jUeKxDsI3CvE4BXO7D1MrUm i5KYTueWdtGW8qfUPyVYqqR m5peRpa uSnyXI6fZUOoxvqsPBFglY0 nZGCnqBCprRqqON3lJTJszb prw696TqGmHVS6LADerGWrC 6LvhY8h YqEhWYAsYHBsN8IwdCKkCKd iE168VRsiXsH4FSWnglZtF7 KtFTDgjDkvKaN1v8J0Qi0fO CBZZWFy czwvdGQ+CVQzESO1tEenFFh bQCOvqK9kLGGpE0k8QzTnNn K0BCvkG1ZoWVPmmuttZf45m D4vDwFd OiC8YPbaN6MgaiU5TVOmwTZ eLFacVFX4H16ni8V0TFOnUS NdNBY2sJL5sB0yhTdgonfyg GVmdDsg shTmdYyzCXioXTtdG730RCS vcDsnPkZFTUFMRTwvdGQ+PH AyKDT4pTgeKPudUAQmsG2vL ZLbE0e3 UyDmTqH8EAyqP2QfIEEclmv kLx68cC9mPdXeSvL2CRkhS3 OqpyK8DLWsgHRuXVfdKSP3H 08te4P9 PFDdMGTnZGQ1nWA1iE4zuWi nbjogbGVmdDsgdmVydGljYW dcLOvpD517GXLhvUjiIiPpO 3Vycmlu YkTHpQIyVTGgZZ62TE91PM2 7A8AdMgjtxMVskXZ+PHRhYm xlIHdpZHRoPScxMDAlJyBzd SuaBQ4s He1ePLClAZBvaZjlfVQoDdA jp8yhFKNwBRhdJY4ulQklR0 HinWZ4ETNrr7k6Jw52C32fC 3JvdXA+ KEHedZG8kYX4xD7dStXkEeP 3UCzqK025VeBubFIwXcxmr0 lnc1hfzJh7EaEfNWKvufOuo WduPSJ0 t3SvUq42Z59vXBidPZEjHUS nRUOkKRTcuImnlw5skI3sCo 8+VXVbeSU7aGH7zF9nWlUuP jN4ZNgi R747IwPgmHBmWdicV47eD4Z vdXA+GKHuDtw3AWCqqNghOH 8qzSSuFVzxYr9kGJE3OcTdK jIwMGlu H0IyLHDyvofdhvypdWW9BBN kBTIsiH83Sm4hjCrgHe8pKG NdCMQ3CHQgfLXbS3DymH7mM iAjMDAw RJVuN9UbgTKpBKmsG767FXf qTnL7RXBtopZlY5SmWMCzpW euTuA1o6V1Mg4ZsQzswJBrF J6vJhSo SHl2M1ZbXxj9TQHgoMtrYL9 ifIUlGFlpHp7ezHelpDqyEP 3pXAIwxaicg129ImFbk2ebX DEwcHQg DSpbXYT9S17pn8C1XDAdOFT eHCN0sRE5pK5jrPuizbwyyE VmdDsgdmVydGljYWwtYWxpZ 246IHRv yAyaIrTDYhv8G1CcIun3CHK kgGtnJR8ieQAbXWcnSd9zzF evkTdyBZ2zLLEarrtwx386M cYsr9ta UAJzxMWkVPczGSV3V78db3F 1DWJmNUWzJBC9yYD2hG3zjA lnbjogbGVmdDsgdmVydGljY WwtYWxp R869JETxrXhjNi3GBbm6J6B pPft4WXAymDxjKK8dzWKrGO ryMz7doWvbfEigDV9eZHGyc tuet901 DzOra0ljRAZseUUsAVfbGPK 0G68rg6O3DFGbWEMcFBR8cI K8fY5oqFhjzxqhxXCctAlfw mVydGlj GMllPBqeK409MDEsaPwmLdV heWVyOjwvdGQ+ST11jw53E6 YhCpajAag6QXWnZUN6yDI3f L1dPUJy [facility] [place] [facility] Basophils Auto (Bld) [#/Vol] on 09-15-2023 Basophils (Bld) [#/Vol] 0.0 x10 0.0-0.2 [facility] Basophils/100 WBC Auto (Bld) on 09-15-2023 Basophils/100 WBC (Bld) 0.3 % 0.2-2.0 [facility] Eosinophils/100 WBC Auto (Bl d)on 09-15-2023 Eosinophils/100 WBC (Bld) 2.7 % 0.9-4.0 [facility] Erythrocyte distribution wid th Auto (RBC) [Ratio]on 09-15-2023 Erythrocyte distribution width (RBC) [Ratio] 14.1 % 11.5-15.0 [facility] Hematocrit Auto (Bld) [Volum e fraction]on 09-15-2023 Hematocrit (Bld) [Volume fraction] 41.4 % High 33.7-40.4 [facility] Hemoglobin [Mass/volume] in Bloodon 09-15-2023 Hemoglobin (Bld) [Mass/Vol] 14.0 g/dL 11.3-15.9 [facility] Iron binding capacity [Mass/ volume] in Serum or Plasmaon 09-15-2023 Iron binding capacity [Mass/Vol] 405 mcg/dL High 250-400 [facility] Iron saturation [Mass Fracti on] in Serum or Plasmaon 09-15-2023 Iron saturation [Mass fraction] 12 % Low 20-55 [facility] Laboratory - Chemistry and C hemistry - challengeon 09-15-2023 Iron [Mass/Vol] 48.0 ug/dL 28.0-170.0 [facility] Transferrin [Mass/Vol] 289.2 mg/dL 192.0-382.0 [facility] Leukocytes [#/volume] correc terry for nucleated erythrocytes in Blood by Automated counon 09-15-2023 WBC corrected for nucl RBC Auto (Bld) [#/Vol] 6.4 x10 3.5-10.5 [facility] Lymphocytes Auto (Bld) [#/Vo l]on 09-15-2023 Lymphocytes (Bld) [#/Vol] 2.2 x10 1.3-2.9 [facility] Lymphocytes/100 WBC Auto (Bl d)on 09-15-2023 Lymphocytes/100 WBC (Bld) 34 % 14-48 [facility] MCH Auto (RBC) [Entitic mass ]on 09-15-2023 MCH (RBC) [Entitic mass] 29 pg 24-34 [facility] MCHC Auto (RBC) [Mass/Vol]on 09-15-2023 MCHC (RBC) [Mass/Vol] 34 g/dL 26-37 [facility] MCV Auto (RBC) [Entitic vol] on 09-15-2023 MCV (RBC) [Entitic vol] 87 fL 81-100 [facility] Monocytes Auto (Bld) [#/Vol] on 09-15-2023 Monocytes (Bld) [#/Vol] 0.4 x10 0.0-0.8 [facility] Monocytes/100 WBC Auto (Bld) on 09-15-2023 Monocytes/100 WBC (Bld) 6 % 1-12 [facility] Neutrophils Auto (Bld) [#/Vo l]on 09-15-2023 Neutrophils (Bld) [#/Vol] 3.7 x10 1.5-9.2 [facility] Neutrophils/100 WBC Auto (Bl d)on 09-15-2023 Neutrophils/100 WBC (Bld) 57 % 44-88 [facility] No Panel Informationon 09-14 Add Manual Differential Auto Auto [facility] Eosinophils # (Auto) 0.2 x10 0.0-0.4 [facility] Platelet mean volume Auto (B ld) [Entitic vol]on 09-15-2023 Platelet mean volume (Bld) [Entitic vol] 6.7 fL 6.3-10.2 [facility] Platelets Auto (Bld) [#/Vol] on 09-15-2023 Platelets (Bld) [#/Vol] 179 x10 138-427 [facility] RBC Auto (Bld) [#/Vol]on RBC (Bld) [#/Vol] 4.76 x10 3.70-5.30 [facility] Follitropin [Units/volume] i n Serum or PlasmaOrdered By: LEOBARDO BARROSO on 06-23-2022 Follitropin Qn 6.2 m[IU]/mL [facility] Comment on above: FEMALE NORMALS (DELROY ENOPAUSE) MID-FOLLICULAR PHASE: 3.9-8.8 mIU/mL MID-CYCLE PEAK: 4.5-22.5 mIU/mL MID-LUTEAL PHASE: 1.8-5.1 mIU/mLFEMALE NORMALS (POSTMENOPAUSE): 16.7-113.6 mIU/mLMALE NORMALS: 1.3-19.3 mIU/mL Prolactin [Mass/volume] in S betty or PlasmaOrdered By: LEOBARDO BARROSO on 06-23-2022 Prolactin [Mass/Vol] 7.58 ng/mL 3.34-26.72 [facility] CT biopsyOrdered By: Lisha Ford on 06-16-2022 Transferrin [Mass/Vol] 393 mg/dL 180-380 [facility] Iron [Mass/volume] in Serum or PlasmaOrdered By: Amanda Ford on 06-16-2022 Iron [Mass/Vol] 34 ug/dL 40-150 [facility] Iron binding capacity [Mass/ volume] in Serum or PlasmaOrdered By: Amanda Ford on 06-16-2022 Iron binding capacity [Mass/Vol] 550 ug/dL 255-450 [facility] Iron saturation [Mass Fracti on] in Serum or PlasmaOrdered By: Amanda Ford on 06-16-2022 Iron saturation [Mass fraction] 6.2 % 20-50 [facility] Anisocytosis LM Ql (Bld)Orde red By: Farhad Gallego on 06-11-2022 Anisocytosis Ql (Bld) Marked [facility] Basophils Auto (Bld) [#/Vol] Ordered By: Farhad Gallego on 06-11-2022 Basophils (Bld) [#/Vol] N/A [facility] Basophils/100 WBC Auto (Bld) Ordered By: Farhad Jasonam on 06-11-2022 Basophils/100 WBC (Bld) N/A [facility] Basophils/100 WBC Manual cnt (Bld)Ordered By: Farhad Gallego on 06-11-2022 Basophils/100 WBC (Bld) 1 % 0-2 [facility] Eosinophils Auto (Bld) [#/Vo l]Ordered By: Farhad Gallego on 06-11-2022 Eosinophils (Bld) [#/Vol] N/A [facility] Eosinophils/100 WBC Auto (Bl d)Ordered By: Farhad Gallego on 06-11-2022 Eosinophils/100 WBC (Bld) N/A [facility] Eosinophils/100 WBC Manual c nt (Bld)Ordered By: Farhad Gallego on 06-11-2022 Eosinophils/100 WBC (Bld) 7 % 1-3 [facility] Erythrocyte distribution wid th Auto (RBC) [Ratio]Ordered By: Farhad Gallego on 06-11-2022 Erythrocyte distribution width (RBC) [Ratio] 26.1 % 11.9-15.3 [facility] Hematocrit Auto (Bld) [Volum e fraction]Ordered By: Farhad Gallego on 06-11-2022 Hematocrit (Bld) [Volume fraction] 25.7 % 34.0-46.4 [facility] Hemoglobin [Mass/volume] in BloodOrdered By: Farhad Gallego on 06-11-2022 Hemoglobin (Bld) [Mass/Vol] 8.0 g/dL 11.8-15.4 [facility] Hypochromia LM Ql (Bld)Order ed By: Farhad Gallego on 06-11-2022 Hypochromia Ql (Bld) Moderate [facility] Leukocytes [#/volume] correc terry for nucleated erythrocytes in Blood by Automated counOrdered By: Farhad Gallego on 06-11-2022 WBC corrected for nucl RBC Auto (Bld) [#/Vol] 5.0 10*3/uL 3.8-11.6 [facility] Lymphocytes Auto (Bld) [#/Vo l]Ordered By: Farhad Gallego on 06-11-2022 Lymphocytes (Bld) [#/Vol] N/A [facility] Lymphocytes/100 WBC Auto (Bl d)Ordered By: Farhad Gallego on 06-11-2022 Lymphocytes/100 WBC (Bld) N/A [facility] Lymphocytes/100 WBC Manual c nt (Bld)Ordered By: Farhad Gallego on 06-11-2022 Lymphocytes/100 WBC (Bld) 56 % 18-42 [facility] MCH Auto (RBC) [Entitic mass ]Ordered By: Farhad Gallego on 06-11-2022 MCH (RBC) [Entitic mass] 21.1 pg 24.7-34.3 [facility] MCHC Auto (RBC) [Mass/Vol]Or dered By: Farhad Lashonda on 06-11-2022 MCHC (RBC) [Mass/Vol] 31.2 g/dL 32.0-35.0 [facility] MCV Auto (RBC) [Entitic vol] Ordered By: Farhad Lashonda on 06-11-2022 MCV (RBC) [Entitic vol] 67.6 fL 80-100 [facility] Microcytes LM Ql (Bld)Ordere d By: Farhad Lashonda on 06-11-2022 Microcytes Ql (Bld) Marked [facility] Monocytes Auto (Bld) [#/Vol] Ordered By: Farhad Lashonda on 06-11-2022 Monocytes (Bld) [#/Vol] N/A [facility] Monocytes/100 WBC Auto (Bld) Ordered By: Farhad Lashonda on 06-11-2022 Monocytes/100 WBC (Bld) N/A [facility] Monocytes/100 WBC Manual cnt (Bld)Ordered By: Farhad Lashonda on 06-11-2022 Monocytes/100 WBC (Bld) 5 % 2-11 [facility] Neutrophils Auto (Bld) [#/Vo l]Ordered By: Farhad Lashonda on 06-11-2022 Neutrophils (Bld) [#/Vol] N/A [facility] Neutrophils/100 WBC Auto (Bl d)Ordered By: Farhad Lashonda on 06-11-2022 Neutrophils/100 WBC (Bld) N/A [facility] Nucleated erythrocytes [Pres ence] in Blood by Automated countOrdered By: Farhad Lashonda on 06-11-2022 Nucleated RBC Auto Ql (Bld) N/A [facility] Platelet adequacy [Presence] in Blood by Light microscopyOrdered By: Farhad Lashonda on 06-11-2022 Platelets LM Ql (Bld) Normal Normal [facility] Platelet mean volume Auto (B ld) [Entitic vol]Ordered By: Farhad Lashonda on 06-11-2022 Platelet mean volume (Bld) [Entitic vol] 8.2 fL 6.3-10.7 [facility] Platelet morphology finding [Identifier] in BloodOrdered By: Farhad Gallego on 06-11-2022 Platelet morphology finding Nom (Bld) Normal Normal [facility] Platelets Auto (Bld) [#/Vol] Ordered By: Farhad Gallego on 06-11-2022 Platelets (Bld) [#/Vol] 165 10*3/uL 150-450 [facility] Polychromasia [Presence] in Blood by Light microscopyOrdered By: Farhad Gallego on 06-11-2022 Polychromasia LM Ql (Bld) Marked [facility] RBC Auto (Bld) [#/Vol]Ordere d By: Farhad Gallego on 06-11-2022 RBC (Bld) [#/Vol] 3.80 10*6/uL 3.60-5.00 [facility] RBC morphologyOrdered By: An scarlet Gallego on 06-11-2022 RBC morphology finding Nom (Bld) N/A [facility] Segmented neutrophils/100 WB C Manual cnt (Bld)Ordered By: Farhad Gallego on 06-11-2022 Segmented neutrophils/100 WBC (Bld) 32 % 50-70 [facility] WBC Auto (Bld) [#/Vol]Ordere d By: Farhad Gallego on 06-11-2022 WBC (Bld) [#/Vol] 5.0 10*3/uL 3.8-11.6 [facility] Activated partial thrombopla stin time (aPTT) in platelet poor plasma by coagulation aOrdered By: Jean Jett on 06-10-2022 aPTT Coag (PPP) [Time] 29.8 s 25.1-36.5 [facility] Anisocytosis LM Ql (Bld)Orde red By: Jean Jett on 06-10-2022 Anisocytosis Ql (Bld) Marked [facility] Basophils Auto (Bld) [#/Vol] Ordered By: Jean Jett on 06-10-2022 Basophils (Bld) [#/Vol] 0.1 10*3/uL 0.0-0.2 [facility] Basophils/100 WBC Auto (Bld) Ordered By: Jean Jett on 06-10-2022 Basophils/100 WBC (Bld) 1.8 % . [facility] Bilirubin Test strip Ql (U)O rdered By: Jean Jett on 06-10-2022 Bilirubin Ql (U) Negative Negative [facility] CT biopsyOrdered By: Jean Jett on 06-10-2022 Transferrin [Mass/Vol] 380 mg/dL 180-380 [facility] Calcium [Mass/volume] in Ser um or PlasmaOrdered By: Jean Jett on 06-10-2022 Calcium [Mass/Vol] 8.6 mg/dL 8.2-10.2 [facility] Carbon dioxide, total [Moles /volume] in Serum or PlasmaOrdered By: Jean Jett on 06-10-2022 CO2 [Moles/Vol] 23.3 mmol/L 22.0-30.0 [facility] Chloride [Moles/volume] in S betty or PlasmaOrdered By: Jean Jett on 06-10-2022 Chloride [Moles/Vol] 106 mmol/L 95-114 [facility] Color Auto (U)Ordered By: Luis Fernando Jett on 06-10-2022 Color (U) Yellow Yellow [facility] Creatine kinase [Enzymatic a ctivity/volume] in Serum or PlasmaOrdered By: Jean Jett on 06-10-2022 CK [Catalytic activity/Vol] 100 U/L 22-269 [facility] Creatinine and Glomerular fi ltration rate.predicted panel (S/P/Bld)Ordered By: Jean Jett on 06-10-2022 Creatinine [Mass/Vol] 0.71 mg/dL 0.44-1.03 [facility] Eosinophils Auto (Bld) [#/Vo l]Ordered By: Jean Jett on 06-10-2022 Eosinophils (Bld) [#/Vol] 0.3 10*3/uL 0.0-0.45 [facility] Eosinophils/100 WBC Auto (Bl d)Ordered By: Jean Jett on 06-10-2022 Eosinophils/100 WBC (Bld) 5.0 % . [facility] Erythrocyte distribution wid th Auto (RBC) [Ratio]Ordered By: Jean Jett on 06-10-2022 Erythrocyte distribution width (RBC) [Ratio] 24.6 % 11.9-15.3 [facility] Estimated glomerular filtrat ion rate (GFR) non- AmericanOrdered By: Jean Jett on 06-10-2022 GFR/1.73 sq M.predicted among non-blacks MDRD (S/P/Bld) [Vol rate/Area] > 60 mL/Min [facility] Fecal occult blood detection by immunochemistryOrdered By: Jean Jett on 06-10-2022 Hemoglobin.gastrointes tinal Ql (Stl) [facility] Glucose [Mass/volume] in Ser um or PlasmaOrdered By: Jean Jett on 06-10-2022 Glucose [Mass/Vol] 94 mg/dL 70-100 [facility] Comment on above: ADA recommended refe rence rangeRandom Glucose Reference Range is dependent on time and content of last meal. Glucose of more than 200 mg/dL in a nonstressed, ambulatory subject supports the diagnosis of Diabetes Mellitus. HCG ( test) IA.rapi d Ql (U)Ordered By: Jean Jett on 06-10-2022 HCG ( test) Ql (U) Negative [facility] Hematocrit Auto (Bld) [Volum e fraction]Ordered By: Jean Jett on 06-10-2022 Hematocrit (Bld) [Volume fraction] 23.8 % 34.0-46.4 [facility] Hemoglobin [Mass/volume] in BloodOrdered By: Jean Jett on 06-10-2022 Hemoglobin (Bld) [Mass/Vol] 7.3 g/dL 11.8-15.4 [facility] Hypochromia LM Ql (Bld)Order ed By: Jean Jett on 06-10-2022 Hypochromia Ql (Bld) Marked [facility] Iron [Mass/volume] in Serum or PlasmaOrdered By: Jean Jett on 06-10-2022 Iron [Mass/Vol] 25 ug/dL 40-150 [facility] Iron binding capacity [Mass/ volume] in Serum or PlasmaOrdered By: Jean eJtt on 06-10-2022 Iron binding capacity [Mass/Vol] 532 ug/dL 255-450 [facility] Iron saturation [Mass Fracti on] in Serum or PlasmaOrdered By: Jean Jett on 06-10-2022 Iron saturation [Mass fraction] 4.7 % 20-50 [facility] Ketones Auto test strip (U) [Mass/Vol]Ordered By: Jean Jett on 06-10-2022 Ketones (U) [Mass/Vol] Negative Negative [facility] Chemistry and C hemistry - challengeOrdered By: Jean Jett on 06-10-2022 Magnesium [Mass/Vol] 1.9 mg/dL 1.6-2.6 [facility] Natriuretic peptide B (Bld) [Mass/Vol] 23.0 pg/mL 5-100 [facility] Laboratory - CoagulationOrde red By: Jean Jett on 06-10-2022 PT Coag (PPP) [Time] 12.9 s 9.0-12.9 [facility] Leukocytes [#/volume] correc terry for nucleated erythrocytes in Blood by Automated counOrdered By: Jean Jett on 06-10-2022 WBC corrected for nucl RBC Auto (Bld) [#/Vol] 5.3 10*3/uL 3.8-11.6 [facility] Lymphocytes Auto (Bld) [#/Vo l]Ordered By: Jean Jett on 06-10-2022 Lymphocytes (Bld) [#/Vol] 2.2 10*3/uL 1.00-4.8 [facility] Lymphocytes/100 WBC Auto (Bl d)Ordered By: Jean Jett on 06-10-2022 Lymphocytes/100 WBC (Bld) 41.3 % . [facility] MCH Auto (RBC) [Entitic mass ]Ordered By: Jean Jett on 06-10-2022 MCH (RBC) [Entitic mass] 19.7 pg 24.7-34.3 [facility] MCHC Auto (RBC) [Mass/Vol]Or dered By: Jean Jett on 06-10-2022 MCHC (RBC) [Mass/Vol] 30.6 g/dL 32.0-35.0 [facility] MCV Auto (RBC) [Entitic vol] Ordered By: Jean Jett on 06-10-2022 MCV (RBC) [Entitic vol] 64.5 fL 80-100 [facility] Microcytes LM Ql (Bld)Ordere d By: Jean Jett on 06-10-2022 Microcytes Ql (Bld) Marked [facility] Monocyte distribution width [Entitic volume] in Blood by AutomatedOrdered By: Jean Jett on 06-10-2022 Monocyte distribution width Auto (Bld) [Entitic vol] 17.54 % 0.00-20.00 [facility] Monocytes Auto (Bld) [#/Vol] Ordered By: Jean Jett on 06-10-2022 Monocytes (Bld) [#/Vol] 0.4 10*3/uL 0.0-0.8 [facility] Monocytes/100 WBC Auto (Bld) Ordered By: Jean Jett on 06-10-2022 Monocytes/100 WBC (Bld) 6.8 % . [facility] Neutrophils Auto (Bld) [#/Vo l]Ordered By: Jean Jett on 06-10-2022 Neutrophils (Bld) [#/Vol] 2.4 10*3/uL 1.8-7.7 [facility] Neutrophils/100 WBC Auto (Bl d)Ordered By: Jean Jett on 06-10-2022 Neutrophils/100 WBC (Bld) 45.1 % . [facility] Nitrite Test strip Ql (U)Ord ered By: Jean Jett on 06-10-2022 Nitrite Ql (U) Negative Negative [facility] No Panel InformationOrdered By: Jean Jett on 06-10-2022 Estimated GFR () > 60 mL/Min [facility] Comment on above: GFR estimated refere nce range: According to KDOQI guidelines, <60 ml/min/1.73m2 is sufficient to diagnose a patient with chronic kidney disease. Pharmacy Creatinine Clearance (Chem 149.49 [facility] Nucleated erythrocytes [Pres ence] in Blood by Automated countOrdered By: Jean Jett on 06-10-2022 Nucleated RBC Auto Ql (Bld) 0.1 /100{WBC} 0-0.5 [facility] Ovalocyte detectionOrdered B y: Jean Jett on 06-10-2022 Ovalocytes LM Ql (Bld) Slight [facility] Platelet adequacy [Presence] in Blood by Light microscopyOrdered By: Jean Jett on 06-10-2022 Platelets LM Ql (Bld) Normal Normal [facility] Platelet mean volume Auto (B ld) [Entitic vol]Ordered By: Jean Jett on 06-10-2022 Platelet mean volume (Bld) [Entitic vol] 8.3 fL 6.3-10.7 [facility] Platelet morphology finding [Identifier] in BloodOrdered By: Jean Jett on 06-10-2022 Platelet morphology finding Nom (Bld) Normal Normal [facility] Platelet poor plasma interna tional normalized ratio (INR) by coagulation assay (relatOrdered By: Jean Jett on 06-10-2022 INR Coag (PPP) [Relative time] 1.1 {INR} [facility] Comment on above: INR Therapeutic Rang e [...] 06-10-2022 Platelets (Bld) [#/Vol] 202 10*3/uL 150-450 [facility] Poikilocytosis [Presence] in Blood by Light microscopyOrdered By: Jean Jett on 06-10-2022 Poikilocytosis LM Ql (Bld) Slight [facility] Polychromasia [Presence] in Blood by Light microscopyOrdered By: Jean Jett on 06-10-2022 Polychromasia LM Ql (Bld) [facility] Potassium [Moles/volume] in Serum or PlasmaOrdered By: Jean Jett on 06-10-2022 Potassium [Moles/Vol] 4.1 mmol/L 3.5-5.1 [facility] Protein Auto test strip (U) [Mass/Vol]Ordered By: Jean Jett on 06-10-2022 Protein (U) [Mass/Vol] Negative Negative [facility] RBC Auto (Bld) [#/Vol]Ordere d By: Jean Jett on 06-10-2022 RBC (Bld) [#/Vol] 3.69 10*6/uL 3.60-5.00 [facility] RBC morphologyOrdered By: Luis Fernando Jett on 06-10-2022 RBC morphology finding Nom (Bld) N/A [facility] Serum or plasma anion gap de terminationOrdered By: Jean Jett on 06-10-2022 Anion gap [Moles/Vol] 10.8 mmol/L 6.0-15.0 [facility] Sodium [Moles/volume] in Ser um or PlasmaOrdered By: Jean Jett on 06-10-2022 Sodium [Moles/Vol] 136 mmol/L 136-146 [facility] Specific gravity Auto test s trip (U) [Rel density]Ordered By: Jean Jett on 06-10-2022 Specific gravity (U) [Rel density] 1.010 1.001-1.030 [facility] Target cellsOrdered By: Mackenzie Jett on 06-10-2022 Target cells LM Ql (Bld) Slight [facility] Teardrop cell detectionOrder ed By: Jean Jett on 06-10-2022 Dacrocytes LM Ql (Bld) Slight [facility] Troponin I.cardiac [Mass/vol ume] in Serum or Plasma by High sensitivity methodOrdered By: Jean Jett on 06-10-2022 Troponin I.cardiac High sensitivity method [Mass/Vol] < 3 pg/mL 0- [facility] Urea nitrogen [Mass/volume] in Serum or PlasmaOrdered By: Jean Jett on 06-10-2022 Urea nitrogen [Mass/Vol] 9 mg/dL 01-08 [facility] Urine clarity by refractomet ry automatedOrdered By: Jean Jett on 06-10-2022 Clarity Refractometry automated (U) Clear Clear [facility] Urine glucose measurement by automated test strip (mass/volume)Ordered By: Jean Jett on 06-10-2022 Glucose Auto test strip (U) [Mass/Vol] Normal mg/dL Normal [facility] Urine hemoglobin detection b y automated test stripOrdered By: Jean Jett on 06-10-2022 Hemoglobin Auto test strip Ql (U) Negative Negative [facility] Urine leukocyte esterase det ection by automated test stripOrdered By: Jean Jett on 06-10-2022 Leukocyte esterase Auto test strip Ql (U) Negative Negative [facility] Urobilinogen Auto test strip (U) [Mass/Vol]Ordered By: Jean Jett on 06-10-2022 Urobilinogen (U) [Mass/Vol] Normal mg/dL Normal [facility] WBC Auto (Bld) [#/Vol]Ordere d By: Jean Jett on 06-10-2022 WBC (Bld) [#/Vol] 5.3 10*3/uL 3.8-11.6 [facility] pH Auto test strip (U)Ordere d By: Jean Jett on 06-10-2022 pH (U) 5.5 [pH] 5.0-9.0 [facility] Alkaline phosphatase [Enzyma tic activity/volume] in Serum or PlasmaOrdered By: Julieta Jefferson on 06-09-2022 ALP [Catalytic activity/Vol] 39 U/L 32-92 [facility] Anisocytosis LM Ql (Bld)Orde red By: Julieta Jefferson on 06-09-2022 Anisocytosis Ql (Bld) Marked [facility] Aspartate aminotransferase [ Enzymatic activity/volume] in Serum or PlasmaOrdered By: Julieta Jefferson on 06-09-2022 AST [Catalytic activity/Vol] 15 U/L 10-42 [facility] Basophils Auto (Bld) [#/Vol] Ordered By: Julieta Jefferson on 06-09-2022 Basophils (Bld) [#/Vol] 0.1 10*3/uL 0.0-0.2 [facility] Basophils/100 WBC Auto (Bld) Ordered By: Julieta Jefferson on 06-09-2022 Basophils/100 WBC (Bld) 1.4 % . [facility] Body fluid albumin measureme nt (mass/volume)Ordered By: Julieta Jefferson on 06-09-2022 Albumin (Body fld) [Mass/Vol] 4.1 g/dL 3.2-5.5 [facility] Calcium [Mass/volume] in Ser um or PlasmaOrdered By: Julieta Jefferson on 06-09-2022 Calcium [Mass/Vol] 9.0 mg/dL 8.2-10.2 [facility] Carbon dioxide, total [Moles /volume] in Serum or PlasmaOrdered By: Julieta Jefferson on 06-09-2022 CO2 [Moles/Vol] 23.3 mmol/L 22.0-30.0 [facility] Cholesterol [Mass/volume] in Serum or PlasmaOrdered By: Julieta Jefferson on 06-09-2022 Cholesterol [Mass/Vol] 137 mg/dL 140-200 [facility] Comment on above: Chol less than 200 m g/dl low riskChol 201-239 mg/dl borderline riskChol 240 mg/dl and greater high risk Cholesterol in LDL Calc [Mas s/Vol]Ordered By: Julieta Jefferson on 06-09-2022 Cholesterol in LDL [Mass/Vol] 72 mg/dL 0-100 [facility] Comment on above: LDL ATP III CLASSIFI CATIONLDL less than 100 mg/dL OptimalLDL 100-129 mg/dL Near or above optimalLDL 130-159 mg/dL Borderline highLDL 160-189 mg/dL HighLDL greater than 189 mg/dL Very high Cholesterol in VLDL Calc [Ma ss/Vol]Ordered By: Julieta Jefferson on 06-09-2022 Cholesterol in VLDL [Mass/Vol] 9 mg/dL [facility] Creatinine and Glomerular fi ltration rate.predicted panel (S/P/Bld)Ordered By: Julieta Jefferson on 06-09-2022 Creatinine [Mass/Vol] 0.59 mg/dL 0.44-1.03 [facility] Eosinophils Auto (Bld) [#/Vo l]Ordered By: Julieta Jefferson on 06-09-2022 Eosinophils (Bld) [#/Vol] 0.3 10*3/uL 0.0-0.45 [facility] Eosinophils/100 WBC Auto (Bl d)Ordered By: Julieta Jefferson on 06-09-2022 Eosinophils/100 WBC (Bld) 6.8 % . [facility] Erythrocyte distribution wid th Auto (RBC) [Ratio]Ordered By: Julieta Jefferson on 06-09-2022 Erythrocyte distribution width (RBC) [Ratio] 24.5 % 11.9-15.3 [facility] Estimated glomerular filtrat ion rate (GFR) non- AmericanOrdered By: Julieta Jefferson on 06-09-2022 GFR/1.73 sq M.predicted among non-blacks MDRD (S/P/Bld) [Vol rate/Area] > 60 mL/Min [facility] Globulin Calc (S) [Mass/Vol] Ordered By: Julieta Jefferson on 06-09-2022 Globulin (S) [Mass/Vol] 2.3 g/dL [facility] Glucose mean value [Mass/vol ume] in Blood Estimated from glycated hemoglobinOrdered By: Julieta Jefferson on 06-09-2022 Average glucose Estimated from glycated hemoglobin (Bld) [Mass/Vol] 97 mg/dL [facility] Hematocrit Auto (Bld) [Volum e fraction]Ordered By: Julieta Jefferson on 06-09-2022 Hematocrit (Bld) [Volume fraction] 26.0 % 34.0-46.4 [facility] Hemoglobin A1c percentageOrd ered By: Julieta Jefferson on 06-09-2022 HbA1c (Bld) [Mass fraction] 5.0 % 4.3-5.6 [facility] Comment on above: Increased risk for d iabetes: 5.7 - 6.4diabetes: >6.4glycemic control for adults with diabetes: <7.0 Hemoglobin [Mass/volume] in BloodOrdered By: Julieta Jefferson on 06-09-2022 Hemoglobin (Bld) [Mass/Vol] 7.8 g/dL 11.8-15.4 [facility] Hypochromia LM Ql (Bld)Order ed By: Julieta Jefferson on 06-09-2022 Hypochromia Ql (Bld) Moderate [facility] Leukocytes [#/volume] correc terry for nucleated erythrocytes in Blood by Automated counOrdered By: Julieta Jefferson on 06-09-2022 WBC corrected for nucl RBC Auto (Bld) [#/Vol] 4.6 10*3/uL 3.8-11.6 [facility] Lymphocytes Auto (Bld) [#/Vo l]Ordered By: Julieta Jefferson on 06-09-2022 Lymphocytes (Bld) [#/Vol] 2.0 10*3/uL 1.00-4.8 [facility] Lymphocytes/100 WBC Auto (Bl d)Ordered By: Julieta Jefferosn on 06-09-2022 Lymphocytes/100 WBC (Bld) 44.2 % . [facility] MCH Auto (RBC) [Entitic mass ]Ordered By: Julieta Jefferson on 06-09-2022 MCH (RBC) [Entitic mass] 19.7 pg 24.7-34.3 [facility] MCHC Auto (RBC) [Mass/Vol]Or dered By: Julieta Jefferson on 06-09-2022 MCHC (RBC) [Mass/Vol] 30.2 g/dL 32.0-35.0 [facility] MCV Auto (RBC) [Entitic vol] Ordered By: Julieta Jefferson on 06-09-2022 MCV (RBC) [Entitic vol] 65.3 fL 80-100 [facility] Microcytes LM Ql (Bld)Ordere d By: Julieta Jefferson on 06-09-2022 Microcytes Ql (Bld) Marked [facility] Monocytes Auto (Bld) [#/Vol] Ordered By: Julieta Jefferson on 06-09-2022 Monocytes (Bld) [#/Vol] 0.4 10*3/uL 0.0-0.8 [facility] Monocytes/100 WBC Auto (Bld) Ordered By: Julieta Jefferson on 06-09-2022 Monocytes/100 WBC (Bld) 8.9 % . [facility] Neutrophils Auto (Bld) [#/Vo l]Ordered By: Julieta Jefferson on 06-09-2022 Neutrophils (Bld) [#/Vol] 1.8 10*3/uL 1.8-7.7 [facility] Neutrophils/100 WBC Auto (Bl d)Ordered By: Julieta Jefferson on 06-09-2022 Neutrophils/100 WBC (Bld) 38.7 % . [facility] No Panel InformationOrdered By: Julieta Jefferson on 06-09-2022 Estimated GFR () > 60 mL/Min [facility] Comment on above: GFR estimated refere nce range: According to KDOQI guidelines, <60 ml/min/1.73m2 is sufficient to diagnose a patient with chronic kidney disease. Pharmacy Creatinine Clearance (Chem N/A [facility] Nucleated erythrocytes [Pres ence] in Blood by Automated countOrdered By: Julieta Jefferson on 06-09-2022 Nucleated RBC Auto Ql (Bld) 0.1 /100{WBC} 0-0.5 [facility] Platelet adequacy [Presence] in Blood by Light microscopyOrdered By: Julieta Jefferson on 06-09-2022 Platelets LM Ql (Bld) Normal Normal [facility] Platelet mean volume Auto (B ld) [Entitic vol]Ordered By: Julieta Jefferson on 06-09-2022 Platelet mean volume (Bld) [Entitic vol] 8.2 fL 6.3-10.7 [facility] Platelet morphology finding [Identifier] in BloodOrdered By: Julieta Jefferson on 06-09-2022 Platelet morphology finding Nom (Bld) Normal Normal [facility] Platelets Auto (Bld) [#/Vol] Ordered By: Julieta Jefferson on 06-09-2022 Platelets (Bld) [#/Vol] 200 10*3/uL 150-450 [facility] Poikilocytosis [Presence] in Blood by Light microscopyOrdered By: Julieta Jefferson on 06-09-2022 Poikilocytosis LM Ql (Bld) Slight [facility] Polychromasia [Presence] in Blood by Light microscopyOrdered By: Julieta Jefferson on 06-09-2022 Polychromasia LM Ql (Bld) Moderate [facility] Protein [Mass/volume] in Ser um or PlasmaOrdered By: Julieta Jefferson on 06-09-2022 Protein [Mass/Vol] 6.4 g/dL 6.1-7.9 [facility] RBC Auto (Bld) [#/Vol]Ordere d By: Julieta Jefferson on 06-09-2022 RBC (Bld) [#/Vol] 3.97 10*6/uL 3.60-5.00 [facility] RBC morphologyOrdered By: Guicho Jefferson on 06-09-2022 RBC morphology finding Nom (Bld) N/A [facility] Schistocytes [Presence] in B lood by Light microscopyOrdered By: Julieta Jefferson on 06-09-2022 Schistocytes LM Ql (Bld) Slight [facility] Serum or plasma alanine paredes otransferase measurement without P-5'-P (enzymatic activiOrdered By: Julieta Jefferson on 06-09-2022 ALT No additional P-5'-P [Catalytic activity/Vol] 14 U/L 10-60 [facility] Serum or plasma albumin/glob ulin mass ratioOrdered By: Julieta Jefferson on 06-09-2022 Albumin/Globulin [Mass ratio] 1.8 {ratio} [facility] Serum or plasma anion gap de terminationOrdered By: Julieta Jefferson on 06-09-2022 Anion gap [Moles/Vol] 11.5 mmol/L 6.0-15.0 [facility] Serum or plasma calcitriol m easurement (mass/volume)Ordered By: Julieta Jefferson on 06-09-2022 1,25-dihydroxyvitamin D3 [Mass/Vol] 60.5 pg/mL 24.8-81.5 [facility] Comment on above: Performed at: [address] [id number] Director: Jon Horton MD, Phone: [phone] Serum or plasma chloride robel surement (moles/volume)Ordered By: Julieta Jefferson on 06-09-2022 Chloride [Moles/Vol] 106 mmol/L 95-114 [facility] Serum or plasma glucose kelly urement (mass/volume)Ordered By: Julieta Jefferson on 06-09-2022 Glucose [Mass/Vol] 78 mg/dL 70-100 [facility] Comment on above: ADA recommended refe rence rangeRandom Glucose Reference Range is dependent on time and content of last meal. Glucose of more than 200 mg/dL in a nonstressed, ambulatory subject supports the diagnosis of Diabetes Mellitus. Serum or plasma high density lipoprotein (HDL) cholesterol measurementOrdered By: Julieta Jefferson on 06-09-2022 Cholesterol in HDL [Mass/Vol] 56 mg/dL 35-85 [facility] Comment on above: HDL CHOL ATP-III CLA SSIFICATION Cardiovascular RiskHDL > or equal to 60 mg/dL LOWHDL < 40 mg/dL HIGH Serum or plasma potassium me asurement (moles/volume)Ordered By: Julieta Jefferson on 06-09-2022 Potassium [Moles/Vol] 3.8 mmol/L 3.5-5.1 [facility] Serum or plasma sodium measu rement (moles/volume)Ordered By: Julieta Jefferson on 06-09-2022 Sodium [Moles/Vol] 137 mmol/L 136-146 [facility] Serum or plasma total biliru bin measurement (mass/volume)Ordered By: Julieta Jefferson on 06-09-2022 Bilirubin [Mass/Vol] 0.3 mg/dL 0.3-1.2 [facility] Serum or plasma total choles terol/high density lipoprotein (HDL) cholesterol mass ratOrdered By: Julieta Jefferson on 06-09-2022 Cholesterol.total/Chol esterol in HDL [Mass ratio] 2.4 {ratio} <5.0 [facility] TSH DL <= 0.005 mIU/L QnOrde red By: Julieta Jeffreson on 06-09-2022 TSH Qn 4.10 m[IU]/L 0.45-5.33 [facility] Teardrop cell detectionOrder ed By: Julieta Jefferson on 06-09-2022 Dacrocytes LM Ql (Bld) Slight [facility] Triglyceride [Mass/volume] i n Serum or PlasmaOrdered By: Julieta Jefferson on 06-09-2022 Triglyceride [Mass/Vol] 45 mg/dL 35-149 [facility] Comment on above: TRIG ATP III CLASSIF ICATIONTRIG less than 150 mg/dL NormalTRIG 150-199 mg/dL Borderline highTRIG 200-500 mg/dL High TRIG greater than 500 mg/dL Very highStandard traceable to the Center for Disease Conrtrol and Prevention (CDC) test method. Urea nitrogen [Mass/volume] in Serum or PlasmaOrdered By: Julieta Jefferson on 06-09-2022 Urea nitrogen [Mass/Vol] 6 mg/dL 9-23 [facility] WBC Auto (Bld) [#/Vol]Ordere d By: Julieta Jefferson on 06-09-2022 WBC (Bld) [#/Vol] 4.6 10*3/uL 3.8-11.6 [facility] Urine 10 SGon 04-21-2022 Albumin DL <= 20 mg/L (U) [Mass/Vol] Negative [employer] Other pH (U) 7.0 [pH] [employer] Other Urine 10 SG Negative [employer] Other Urine 10 SG 1.020 [employer] Other Urine 10 SG large [employer] Other Urine Cultureon 04-21-2022 Bacteria identified Cx Nom (U) [employer] Other Urine culture routineOrdered By: Amanda Ford on 04-21-2022 Bacteria identified Cx Nom (U) 2 Days [facility] Activated partial thrombopla stin time (aPTT) in platelet poor plasma by coagulation aOrdered By: Phu Hdz on 04-10-2022 aPTT Coag (PPP) [Time] 30.4 s 25.1-36.5 [facility] Automated erythrocytes count in urine sediment (number/area)Ordered By: Jean Jett on 04-10-2022 RBC Auto (Urine sed) [#/Area] Innumerable [HPF] 0-4 [facility] Automated leukocytes count i n urine sediment (number/area)Ordered By: Jean Jett on 04-10-2022 WBC Auto (Urine sed) [#/Area] 3-4 [HPF] 0-4 [facility] Automated urine sediment mukesh cium oxalate crystal count by microscopy (number/high powOrdered By: Jean Jett on 04-10-2022 Calcium oxalate crystals LM.HPF (Urine sed) [#/Area] 1+ [HPF] [facility] Basophils Auto (Bld) [#/Vol] Ordered By: Jean Jett on 04-10-2022 Basophils (Bld) [#/Vol] 0.0 10*3/uL 0.0-0.2 [facility] Basophils/100 WBC Auto (Bld) Ordered By: Jean Jett on 04-10-2022 Basophils/100 WBC (Bld) 0.5 % . [facility] Bilirubin Test strip Ql (U)O rdered By: Jean Jett on 04-10-2022 Bilirubin Ql (U) 1+ Negative [facility] Casts typing in urine sedime nt by light microscopyOrdered By: Jean Jett on 04-10-2022 Casts LM Nom (Urine sed) None seen [LPF] None Seen [facility] Color Auto (U)Ordered By: Luis Fernando Jett on 04-10-2022 Color (U) Red Yellow [facility] Creatinine and Glomerular fi ltration rate.predicted panel (S/P/Bld)Ordered By: Jean Jett on 04-10-2022 Creatinine [Mass/Vol] 0.68 mg/dL 0.44-1.03 [facility] Eosinophils Auto (Bld) [#/Vo l]Ordered By: Jean Jett on 04-10-2022 Eosinophils (Bld) [#/Vol] 0.2 10*3/uL 0.0-0.45 [facility] Eosinophils/100 WBC Auto (Bl d)Ordered By: Jean Jett on 04-10-2022 Eosinophils/100 WBC (Bld) 2.1 % . [facility] Erythrocyte distribution wid th Auto (RBC) [Ratio]Ordered By: Jean Jett on 04-10-2022 Erythrocyte distribution width (RBC) [Ratio] 14.3 % 11.9-15.3 [facility] Estimated glomerular filtrat ion rate (GFR) non- AmericanOrdered By: Jean Jett on 04-10-2022 GFR/1.73 sq M.predicted among non-blacks MDRD (S/P/Bld) [Vol rate/Area] > 60 mL/Min [facility] HCG ( test) IA.rapi d Ql (U)Ordered By: Jean Jett on 04-10-2022 HCG ( test) Ql (U) Negative [facility] Hematocrit Auto (Bld) [Volum e fraction]Ordered By: Jean Jett on 04-10-2022 Hematocrit (Bld) [Volume fraction] 29.4 % 34.0-46.4 [facility] Hemoglobin [Mass/volume] in BloodOrdered By: Jean Jett on 04-10-2022 Hemoglobin (Bld) [Mass/Vol] 9.9 g/dL 11.8-15.4 [facility] Ketones Auto test strip (U) [Mass/Vol]Ordered By: Jean Jett on 04-10-2022 Ketones (U) [Mass/Vol] Negative Negative [facility] Laboratory - CoagulationOrde red By: Phu Hdz on 04-10-2022 PT Coag (PPP) [Time] 12.4 s 9.0-12.9 [facility] Laboratory - UrinalysisOrder ed By: Jean Jett on 04-10-2022 Hyaline casts LM Ql (Urine sed) None seen [LPF] 0-8 [facility] Leukocytes [#/volume] correc terry for nucleated erythrocytes in Blood by Automated counOrdered By: Jean Jett on 04-10-2022 WBC corrected for nucl RBC Auto (Bld) [#/Vol] 8.5 10*3/uL 3.8-11.6 [facility] Lymphocytes Auto (Bld) [#/Vo l]Ordered By: Jean Jett on 04-10-2022 Lymphocytes (Bld) [#/Vol] 2.1 10*3/uL 1.00-4.8 [facility] Lymphocytes/100 WBC Auto (Bl d)Ordered By: Jean Jett on 04-10-2022 Lymphocytes/100 WBC (Bld) 25.2 % . [facility] MCH Auto (RBC) [Entitic mass ]Ordered By: Jean Jett on 04-10-2022 MCH (RBC) [Entitic mass] 28.8 pg 24.7-34.3 [facility] MCHC Auto (RBC) [Mass/Vol]Or dered By: Jean Jett on 04-10-2022 MCHC (RBC) [Mass/Vol] 33.6 g/dL 32.0-35.0 [facility] MCV Auto (RBC) [Entitic vol] Ordered By: Jean Jett on 04-10-2022 MCV (RBC) [Entitic vol] 85.7 fL 80-100 [facility] Monocyte distribution width [Entitic volume] in Blood by AutomatedOrdered By: Jean Jett on 04-10-2022 Monocyte distribution width Auto (Bld) [Entitic vol] 14.20 % 0.00-20.00 [facility] Monocytes Auto (Bld) [#/Vol] Ordered By: Jean Jett on 04-10-2022 Monocytes (Bld) [#/Vol] 0.5 10*3/uL 0.0-0.8 [facility] Monocytes/100 WBC Auto (Bld) Ordered By: Jean Jett on 04-10-2022 Monocytes/100 WBC (Bld) 5.7 % . [facility] Neutrophils Auto (Bld) [#/Vo l]Ordered By: Jean Jett on 04-10-2022 Neutrophils (Bld) [#/Vol] 5.6 10*3/uL 1.8-7.7 [facility] Neutrophils/100 WBC Auto (Bl d)Ordered By: Jean Jett on 04-10-2022 Neutrophils/100 WBC (Bld) 66.5 % . [facility] Nitrite Test strip Ql (U)Ord ered By: Jean Jett on 04-10-2022 Nitrite Ql (U) Positive Negative [facility] No Panel InformationOrdered By: Jean Jett on 04-10-2022 Estimated GFR () > 60 mL/Min [facility] Comment on above: GFR estimated refere nce range: According to KDOQI guidelines, <60 ml/min/1.73m2 is sufficient to diagnose a patient with chronic kidney disease. Pharmacy Creatinine Clearance (Chem 152.39 [facility] Nucleated erythrocytes [Pres ence] in Blood by Automated countOrdered By: Jean Jett on 04-10-2022 Nucleated RBC Auto Ql (Bld) 0.0 /100{WBC} 0-0.5 [facility] Platelet mean volume Auto (B ld) [Entitic vol]Ordered By: Jean Jett on 04-10-2022 Platelet mean volume (Bld) [Entitic vol] 6.9 fL 6.3-10.7 [facility] Platelet poor plasma interna tional normalized ratio (INR) by coagulation assay (relatOrdered By: Phu Hdz on 04-10-2022 INR Coag (PPP) [Relative time] 1.1 {INR} [facility] Comment on above: INR Therapeutic Rang e [...] 04-10-2022 Platelets (Bld) [#/Vol] 263 10*3/uL 150-450 [facility] Protein Auto test strip (U) [Mass/Vol]Ordered By: Jean Jett on 04-10-2022 Protein (U) [Mass/Vol] 100 mg/dL Negative [facility] RBC Auto (Bld) [#/Vol]Ordere d By: Jean Jett on 04-10-2022 RBC (Bld) [#/Vol] 3.43 10*6/uL 3.60-5.00 [facility] Serum or plasma anion gap de terminationOrdered By: Jean Jett on 04-10-2022 Anion gap [Moles/Vol] 8.5 mmol/L 6.0-15.0 [facility] Serum or plasma calcium kelly urement (mass/volume)Ordered By: Jean Jett on 04-10-2022 Calcium [Mass/Vol] 8.6 mg/dL 8.2-10.2 [facility] Serum or plasma chloride robel surement (moles/volume)Ordered By: Jean Jett on 04-10-2022 Chloride [Moles/Vol] 106 mmol/L 95-114 [facility] Serum or plasma glucose kelly urement (mass/volume)Ordered By: Jean Jett on 04-10-2022 Glucose [Mass/Vol] 99 mg/dL 70-100 [facility] Comment on above: ADA recommended refe rence rangeRandom Glucose Reference Range is dependent on time and content of last meal. Glucose of more than 200 mg/dL in a nonstressed, ambulatory subject supports the diagnosis of Diabetes Mellitus. Serum or plasma potassium me asurement (moles/volume)Ordered By: Jean Jett on 04-10-2022 Potassium [Moles/Vol] 3.6 mmol/L 3.5-5.1 [facility] Serum or plasma sodium measu rement (moles/volume)Ordered By: Jean Jett on 04-10-2022 Sodium [Moles/Vol] 138 mmol/L 136-146 [facility] Serum or plasma total carbon dioxide measurement (moles/volume)Ordered By: Jean Jett on 04-10-2022 CO2 [Moles/Vol] 27.1 mmol/L 22.0-30.0 [facility] Serum or plasma urea nitroge n measurement (mass/volume)Ordered By: Jean Jett on 04-10-2022 Urea nitrogen [Mass/Vol] 5 mg/dL 9- [facility] Specific gravity Auto test s trip (U) [Rel density]Ordered By: Jean Jett on 04-10-2022 Specific gravity (U) [Rel density] 1.033 1.001-1.030 [facility] Squamous epithelial cells de tection in urine sediment by light microscopyOrdered By: Jean Jett on 04-10-2022 Epithelial cells.squamous LM Ql (Urine sed) 3-4 [HPF] 0-2 [facility] Urine bacteria detection by automated methodOrdered By: Jean Jett on 04-10-2022 Bacteria Auto Ql (U) None seen None Seen [facility] Urine clarity by refractomet ry automatedOrdered By: Jean Jett on 04-10-2022 Clarity Refractometry automated (U) Turbid Clear [facility] Urine culture routineOrdered By: Jean Jett on 04-10-2022 Bacteria identified Cx Nom (U) 2 Days [facility] Urine glucose measurement by automated test strip (mass/volume)Ordered By: Jean Jett on 04-10-2022 Glucose Auto test strip (U) [Mass/Vol] Normal mg/dL Normal [facility] Urine hemoglobin detection b y automated test stripOrdered By: Jean Jett on 04-10-2022 Hemoglobin Auto test strip Ql (U) 3+ Negative [facility] Urine leukocyte esterase det ection by automated test stripOrdered By: Jean Jett on 04-10-2022 Leukocyte esterase Auto test strip Ql (U) 2+ Negative [facility] Urine sediment crystal ident ification by light microscopyOrdered By: Jean Jett on 04-10-2022 Crystals LM Nom (Urine sed) None seen [HPF] [facility] Urobilinogen Auto test strip (U) [Mass/Vol]Ordered By: Jean Jett on 04-10-2022 Urobilinogen (U) [Mass/Vol] Normal mg/dL Normal [facility] WBC Auto (Bld) [#/Vol]Ordere d By: Jean Jett on 04-10-2022 WBC (Bld) [#/Vol] 8.5 10*3/uL 3.8-11.6 [facility] pH Auto test strip (U)Ordere d By: Jean Jett on 04-10-2022 pH (U) 5.5 [pH] 5.0-9.0 [facility] Basophils Auto (Bld) [#/Vol] Ordered By: PROVIDER TEMP on 04-08-2022 Basophils (Bld) [#/Vol] 0.0 10*3/uL 0.0-0.2 [facility] Basophils/100 WBC Auto (Bld) Ordered By: PROVIDER TEMP on 04-08-2022 Basophils/100 WBC (Bld) 0.4 % . [facility] Eosinophils Auto (Bld) [#/Vo l]Ordered By: PROVIDER TEMP on 04-08-2022 Eosinophils (Bld) [#/Vol] 0.4 10*3/uL 0.0-0.45 [facility] Eosinophils/100 WBC Auto (Bl d)Ordered By: PROVIDER TEMP on 04-08-2022 Eosinophils/100 WBC (Bld) 5.5 % . [facility] Erythrocyte distribution wid th Auto (RBC) [Ratio]Ordered By: PROVIDER TEMP on 04-08-2022 Erythrocyte distribution width (RBC) [Ratio] 14.1 % 11.9-15.3 [facility] Hematocrit Auto (Bld) [Volum e fraction]Ordered By: PROVIDER TEMP on 04-08-2022 Hematocrit (Bld) [Volume fraction] 33.9 % 34.0-46.4 [facility] Hemoglobin [Mass/volume] in BloodOrdered By: PROVIDER TEMP on 04-08-2022 Hemoglobin (Bld) [Mass/Vol] 11.4 g/dL 11.8-15.4 [facility] Leukocytes [#/volume] correc terry for nucleated erythrocytes in Blood by Automated counOrdered By: PROVIDER TEMP on 04-08-2022 WBC corrected for nucl RBC Auto (Bld) [#/Vol] 8.1 10*3/uL 3.8-11.6 [facility] Lymphocytes Auto (Bld) [#/Vo l]Ordered By: PROVIDER TEMP on 04-08-2022 Lymphocytes (Bld) [#/Vol] 2.3 10*3/uL 1.00-4.8 [facility] Lymphocytes/100 WBC Auto (Bl d)Ordered By: PROVIDER TEMP on 04-08-2022 Lymphocytes/100 WBC (Bld) 28.1 % . [facility] MCH Auto (RBC) [Entitic mass ]Ordered By: PROVIDER TEMP on 04-08-2022 MCH (RBC) [Entitic mass] 29.0 pg 24.7-34.3 [facility] MCHC Auto (RBC) [Mass/Vol]Or dered By: PROVIDER TEMP on 04-08-2022 MCHC (RBC) [Mass/Vol] 33.7 g/dL 32.0-35.0 [facility] MCV Auto (RBC) [Entitic vol] Ordered By: PROVIDER TEMP on 04-08-2022 MCV (RBC) [Entitic vol] 86.0 fL 80-100 [facility] Monocyte distribution width [Entitic volume] in Blood by AutomatedOrdered By: PROVIDER TEMP on 04-08-2022 Monocyte distribution width Auto (Bld) [Entitic vol] 13.83 % 0.00-20.00 [facility] Monocytes Auto (Bld) [#/Vol] Ordered By: PROVIDER TEMP on 04-08-2022 Monocytes (Bld) [#/Vol] 0.5 10*3/uL 0.0-0.8 [facility] Monocytes/100 WBC Auto (Bld) Ordered By: PROVIDER TEMP on 04-08-2022 Monocytes/100 WBC (Bld) 6.7 % . [facility] Neutrophils Auto (Bld) [#/Vo l]Ordered By: PROVIDER TEMP on 04-08-2022 Neutrophils (Bld) [#/Vol] 4.8 10*3/uL 1.8-7.7 [facility] Neutrophils/100 WBC Auto (Bl d)Ordered By: PROVIDER TEMP on 04-08-2022 Neutrophils/100 WBC (Bld) 59.3 % . [facility] Nucleated erythrocytes [Pres ence] in Blood by Automated countOrdered By: PROVIDER TEMP on 04-08-2022 Nucleated RBC Auto Ql (Bld) 0.2 /100{WBC} 0-0.5 [facility] Platelet mean volume Auto (B ld) [Entitic vol]Ordered By: PROVIDER TEMP on 04-08-2022 Platelet mean volume (Bld) [Entitic vol] 7.0 fL 6.3-10.7 [facility] Platelets Auto (Bld) [#/Vol] Ordered By: PROVIDER TEMP on 04-08-2022 Platelets (Bld) [#/Vol] 199 10*3/uL 150-450 [facility] RBC Auto (Bld) [#/Vol]Ordere d By: PROVIDER TEMP on 04-08-2022 RBC (Bld) [#/Vol] 3.94 10*6/uL 3.60-5.00 [facility] WBC Auto (Bld) [#/Vol]Ordere d By: PROVIDER TEMP on 04-08-2022 WBC (Bld) [#/Vol] 8.1 10*3/uL 3.8-11.6 [facility] XR shoulder RT min 2V*on XR shoulder RT min 2V* [facility] [employer] Other XR shoulder RT min 2V* [facility] [employer] Other XR shoulder RT min 2V* [address] [facility] [employer] Other XR shoulder RT min 2V* [place] [address] [facility] [employer] Other XR shoulder RT min 2V* XRay Report [facility] [employer] Other XR shoulder RT min 2V* S[facility] [employer] Other XR shoulder RT min 2V* Patient: Meagan Sanders MR#: [id number] [facility] [employer] Other XR shoulder RT min 2V* [id number] No [email or web address] Other XR shoulder RT min 2V* : 1995 Acct:[id number] [employer] Other XR shoulder RT min 2V* Age/Sex: 27 / F A DM Date: 03/23/22 [employer] Other XR shoulder RT min 2V* Loc: [facility] Room: T ype: [facility] [employer] Other XR shoulder RT min 2V* Attending Dr: Daxa Ford APRN, SHARRON [employer] Other XR shoulder RT min 2V* Copies to: Yaya Ford APRN, JARROD [employer] Other XR shoulder RT min 2V* Ordering Provider : Amanda Ford APRN, JARROD [employer] Other XR shoulder RT min 2V* Date of Service: 03/23/22 [employer] Other XR shoulder RT min 2V* XR/XR shoulder RT min 2V*: Other chronic pain;Pain in right shoulder [employer] Other XR shoulder RT min 2V* RIGHT SHOULDER - - 3 views [employer] Other XR shoulder RT min 2V* CLINICAL HISTORY: Pain lateral to right shoulder for 6 months. [employer] Other XR shoulder RT min 2V* COMPARISON: None [employer] Other XR shoulder RT min 2V* FINDINGS: No [email or web address] Other XR shoulder RT min 2V* Minimal degenerat misti changes of the right AC joint. Glenohumeral joint is grossly unremarkable. No [employer] Other XR shoulder RT min 2V* acute bony process. [employer] Other XR shoulder RT min 2V* 0 XR/XR shoulder RT min 2V* [employer] Other XR shoulder RT min 2V* IMPRESSION: N [employer] Other XR shoulder RT min 2V* MINIMAL DEGENERAT MISTI CHANGES. NO ACUTE BONY PROCESS. [employer] Other XR shoulder RT min 2V* Impression dictat ed by: Sravan Dickinson Jr., D.O.03/23/2022 4:06 PM [employer] Other XR shoulder RT min 2V* Dictation Locatio n: RADIO-PC-12 [employer] Other XR shoulder RT min 2V* Transcribed By: Diaz OWENS 03/23/22 1606 [employer] Other XR shoulder RT min 2V* Dictated By: Jasiel Dickinson Jr, DO 03/23/22 1605 [employer] Other XR shoulder RT min 2V* Signed By: No rt [employer] Other XR shoulder RT min 2V* 03/23/22 1606 [employer] Other Coding Summary.on 09-03-2021 Coding Summary. CD:[id number] Gh0 bWw+PGhlYWQ+DQ4BXLIgR94 bsNTjiP5YI8yDVO1TWGQDUX QDIN6IZJ7tiGK3KRmmZ8Mxb iAv HlktoDJcRA29UAh7KQX6yYc aKNepaG7ysFHvL0t7WmWkTC 82eJ39KBszMTDlUlR1XzJyu jsgbWFy U2ecInVhgODrPao+PHRhYmx lIHdpZHRoPScxMDAlJyBzdH ssHQ1tCj1jMJYuOKXqrKdcg HNlOiBj d6eyJLUdONnbRM8bxXqmB3V ieMI9VBJvo1a9Kn70iAE+PH FpWLI2xXmpUUpye753TgHwl 4ygINN3 rPFoLJewYRX1X82am8B0BUA dWERhMAH0dHO3xR2nzOqxlh mwR1OqlTLeKlM6NDC2cRKlo Y5csOqd ksfywS0xAaf+B17HGG2XXDH BHC0IPxr6X8LwCzduqED+PC 39KENvNZ11fBDrrPTcd8mmb Jm1OeIj NKHoDCZ4sXawKBcvy4TjCFI iO55hkZBke0G2SEBpuOgxuP ScPsYwpKK2mN3eXFgixshyu 2hvdzsn Wcdlr3ahgz71qL01D92ePXk dQJLeNJE0FANjVMBqfSuczh 0bwC5cLv4+WGjua1lnh4vth Mk3WpNr KVWxfzSrtQkrLHG0u1RnYx6 1Y5NfyUmds5FqZht1ok52jO Gws4I8tJY9HSnaJVHgwC2nH WxlZnQ6 XOUhNbQqyS44sKLxIBqxXw2 ntIcyxAyhPK3kTTNnnpniZG TgjR4aNLQtgEJrrBdnSW2dZ TBpbjtm a497RcYbWCQ0PMCpgWXgF2L awQ0jIpRyUADqGLQpF4HksN WuHZioC117WDzeMbG6GTUzk vCwI4Pp KRDacYvwXnT6y7J3Gi6Yp7N ehmmkKAT3PLbwGYI3ShE2Wg EgMjP8P3TlQgs1QMNvtBebG C4rH4Rx EVLszvrnaocfmCY3GYOoMPU kkD97eCZkELqrWe8kp6V0q6 23LULvFUSuwP38Vj7egIbaI TBwdCBU xA0uiyfwv1pspgmwSiXlWRD bEAt1ZXv8OXDatVjsPyMjHB A8QnI7KNJ4mYWluK7lgBzdf uarkF1x Oyc+Q71skF7cLVY8YWL8oqm uTIJljsUuHY68IJ64I8RkNk wvdGFibGU+PGRpdiBzdHlsZ D4sJwMp l3sde0JaGSoiK2RzPIMoDVy bPtl0UWOnOYB5tYO0mP5hJY LtMAsip1G9iFQ9X6UobuSln c6ez1vo VMZyBNnlT40akMSdi6H8HNB mtXW6ZFRqoPswFkYcqZ41Ay c+HTYreGekl1YyShzun2qot 8hdcUv7 GrWzOAIbbhKdhWosOBU1u2Q jGr64R11zCItrVUFkUOJkPC XkZJTkpCncpg2vtN0vJp1+P GNvbCB3 eTJ5hR7lDUPhGbG9LGfgS54 3LdZfqKSgWaszp5cfw1hsxO q9XjRqCUCqjbScqRdrZRO8v 3DaTk30 G04bBHwjDOOpQRCoVSJeXJT fyJkouq9beR8xTp7+PC9jb2 odsn18vK70qKY+BYPoBYY1q WxlPSdw KDDocI4rZSijGjM1FVOeXlF muG78zRHzPFjxYt5wiDdfoR bhXB7lITLvlvaqh681LqCde 2xkIDEw qOJeEPonUIN6Q68nk8G3GXV pWUOcBFL6wPH4nB5hgZtejd ogbGVmdDsgdmVydGljYWwtY AuwQ140 IHRvcDsnPlBhdGllbnQgTmF nWMs2Q4EsCys5JGYidMsfQM 6biBWiMBarOn9xrDszzQcmI V0uIEYa pycsh985NcBbs1xwQQGelVR iCFegWHJ7D58lw0K3JLEjUC JeYPT3yAZ5fK7zaDehrwgpp GVmdDsg yqOwkVguPPsiUUcjT727VBX lsRsyChOdrgCaPCFfpFX1VW 93AF36cEAhg1Z6bKY3N6TiA GRpbmct ksfbvZI8ZPWfOPDigW30Md9 ysYifHh0qJSMtLCV3HIVktD KmQ3VgoW9nKfQwICAgGWDgA 3RleHQt BBieH211BIzeGcU0JNEkvvG yZ7VuUIAjaPavNzH8t8N7En 0CX7K0YC78SY53yDWeq3L9e JV2G8Jo SITamrbksjvurGI0ZISmBIJ llP53Fm3qbFrxCr0gMLBgFG Z8WMOnxYGmV3XxxH0sPlTxP DAwMDAw X8PqcHLtAMyqA075LUpnUbE 3LYBnfgHcX7SnZFZeuHrdFv R8s6R7Iz9BOQb2ND10AY30u WVrh7B8 uCQ6X2PkBAVdyjgtcnvklVI 3UHWmNXQzpN94Rb7tmRjjFl 2lGXBcROC0KCAjgXOgO8Vgz O9rHeGq HVLrJDOwE7VjaABkRKmsH11 8XMzyTmY0ALNiloYvQ9KvWZ GgyNsrUyF4e8E4Iu9TLPOjL C47OLH6 hYM2DQ98EL30T2VvPuhxuNJ ibGU+PHRhYmxlIHdpZHRoPS vtEGKyDrBtnEvzUT6kCz1jN GVyLWNv rRwyrGIdHgOll8vpENCwFQs lHT2bzGvxW9JbtHP5MVAfa1 t5Bp07T89lH2MczNT+PGNvb VH6pDZ0 nG0uVtEtQoQ4HFypU860HjB fvGYkUipmf2zkm0yiwHl9Ow F0SPWoqaNzlTeqEKT4t2JuU g64W31x IHdpZHRoPSIxNSUiIHZhbGl szt7veR4gJi4+LPSpbMV2zL L3uE5wZnZwZcD9IMikD976U nRvcCIv Tpeii4cbl5eirKj1QkCrTDC pzuTbwReoMIC3c6CuUd17Y5 MobPaoa6DjXmx3fc46vROgt 8T3rLC1 K8QcITWkxvpgyNGtdIxgTH4 gCEBrxublTENkmA7gXNKtA7 g2OvYfCjE7THmzX7YhlnR9G DEwcHQg ONjwQWJ1C50wv8M6BYZnUFX nQWU2wCL5dR5fuJbaughumE VmdDsgdmVydGljYWwtYWxpZ 246IHRv wNfvHBHzpJ7tNLQonERrqQk zYS6wPVJdnirlGk7GB6VEHl wgSEVBVEhFUjwvdGQ+PHRkI XS8hNoj EYyfKCIwvF4mQBYkX1e6UuQ sDhV1AGfwH6XeBQGzwffkHd 55rU1cFoQqKhN7ZSuhY2Ebx mR2ZYGo yCBlRTjpLZW8K34sz5G9MGP pMGEgBTB3bUD6xL2psGqdat ogbGVmdDsgdmVydGljYWwtY SigM226 QNWobMinKvWxZjR1TrJ6EAN 0T1YuVfi7LAPsvDwnCP7doY ItRQihOk5ntFcpvIebLV2uZ TBpbjtw EYDxeG1lTXQeyFDqkDsyZN3 lYEAkgovct859OhKiMQW3JE NkvQIbO4FidW5hChXkSBKaD ZPkT4Te aITrSNumH629WBvaMxL2ZVU krmKxW2QiPOAbeKwjRbY7f8 N8Pf5qKxFLFQApnxkuuOH+P HRkIHN0 dLdkSEhaLOCcpT8fFHDmG7v 9OoYsIzP5JGjkY7YjBJPcmj luWs62rH5fMiDcUuG2SEzqC 7BnlkF0 BCHsrILyKJliWMX0A22ph8S 5PIEqROFaLMP2dJY3yR6vsU lnbjogbGVmdDsgdmVydGljY WwtYWxp N341JFXhjBefGjGojPJtYFg vdGQ+ECGtTTD8mLfyDEysZL AhlH5oAQSbV7m1MqImArV2G JmaR6Kw LVNkreaeWy57qV2iCoGdDcU 2HJceB6HojrL6ARJyeHSjBY kyKQL0R32ry5E8KDYsRSJoE WF8bFP8 fX4awZwswdyciRVmfFzarlQ vnRhbUVtzIWbuC919YVFydO mtOv73zJTzoElmneS5S2XmO jwvdHI+ CM08NEJiRZ70hTGgcLNaq4z npLs9PfXnAUQkUFE4xBkaCP sjz0CkURAqN32cdEXfm6O1U GNvbGxh gRKuUmPmiJP7nA5dXTrejtj ue1lgcsojZbfmp8glww15rZ 59V46xNVlaYIFjCLWyOFOsC HZhbGln uw5otW9mHo1+EOLtlPV3xME 2xW1iGyDaZdC1PGknU552Wg TayAPnLeams2yhx6kxxUi0K jIwJSIg gxGzfCrrUZZ8q6DkZr52T73 sIHdpZHRoPSIyMCUiIHZhbG eldd1uuU7fXc0+JT1qt1lwm p31vN22 dHI+NIZpRSG4pNegTUabPNN lkJ0pHNhgHfG9LGCmEhBqbM 65eXPeQClySy8buJxxoQevV P2yCEIr cmmjd220LoHhq4ugGYOtcCN dUOgoEJY2M78zs4X5TUUtHO SlQOV0pZA5lH5lxKhtcclnf GVmdDsg dzZsyRqgRUagBGekH107HYX rfRgcFaSogRRzS8cvzkEBZR 1lOjwvdGQ+ERLuVMM3tJwqR SdwYWRk sW4lACSgY8r7RjRnUzS8CNu bY2XpvxX5KJZegZSjKCHynW HBnB4eomzns4pvrwuiXmFkS DAwMDt0 BMv4SJPtzUuqFmAsEPC4LaO 6KPY7dSKtfT2aaEneondyiR 9wOyc+RklOOjwvdGQ+PHRkI JP8xMqh UAlzCVDwnM4zYFNzR6f0OyX vSfL7CQfbQ3JbgzP0VPAurY BcWNNupSRYnC5szelzi6act jogIzAw PNNkQCn7NJt0KHUhcNheRgJ wPDE5RrV6SHS0yJYkgU5nbK yughmocC3kNdn+TVJOOjwvd GQ+PHRk QMP8vGwbJZkoYZCmkC9gMJO hH6n0WzAfQxT8HCdnW5Dqlf G9XIPyfDXcMJSodIDIoU5ru bdpl7fv raqfLbRjRKNwRMa6QRq0GWG pvWglTuBjFLZ1WuZ0EIZ2iJ ZnjE5zpLcpiqtmeP3bUml+U MB2OFM5 IQ15RQ28W7YxUpxqkHJijTE +PHRhYmxlIHdpZHRoPScxMD HrKqRlgVndHW5cSz8rINIwJ WNvbGxh cHNl (more content not included)... Normal [facility] Office/Cl inic [...] after patient or guardian consented to allow [employer] to record this visit. [employer] academic affairs specialist and provider reviewed before signing. ANAMARIA: [...] History Bipolar: Sister. Depression: Mother and Grandparent. [facility] Comment on above: Result Comment: Elec tronically Signed By: Jay DAVEY, Samir Rivera\.br\Date and Time Signed: 09/02/21 09:25 EDT\.br\Electronically Co-Signed By: Rissa Arias\.br\Date and Time Co-Signed: 09/01/21 17:11 EDT Coding Summary.on 09-01-2021 Coding Summary. CD:[id number] Gh0 bWw+PGhlYWQ+BF9KYPFvI64 duMLyfN8UI3sVGL0EIDACHK IJFE5LRZ2esIF9VUqcN0Huf iAv IbrauSOgRL20KAf8FAH3yNc gGCcssP2mfXQoY5r7SnSdNZ 21kO35UTveIWEsGcI5JaJra jsgbWFy J3eoSwMnpSIvTdu+PHRhYmx lIHdpZHRoPScxMDAlJyBzdH itJW3gWg1tWQHfMBCogUnwv HNlOiBj v8bnBICgLIfiKO1aoSjrH0M bfFW4YIDic5k0Vv67qNK+PH KoUJX6eHldAFrlv763NcSpp 6exVTU3 lVFcAOkgQVK5M51jp2K6AMX vMXZiDXZ5iOW5cS8rrPtxie ugR6IrpGHmKuG5UBN3uUUlq X8nwOdv crsqyB1kBvg+N55WEG0TFBP JKW9XBhu3Z6BuTfqhqRG+PC 98KDDnLB69zSWlkQRtf2xdv Xm5TgUr ZDLmETO0uPlcWPnwj8NtHRG lY73ghZRit0Y8ZDQulLkifZ NdIwAetET9oO5kRVdomiweq 2hvdzsn Wzzae5taji69eJ16G54rKSw zDNWgDLB8BGYeGDRxuOdrmz 7gqY1nHz7+NKbhx4gjf9txn Kz4HjNl GITliwSjwUoxLSU7n9NlKm2 8T9CpgJvuo6GhTfv9xf83eT Oiw3D0lNA7DEssINCsaW4xP WxlZnQ6 BXPaUiHvfG28bTFfFEfwYs6 uaRkcdRovND7cAXUmgcwyUL OswK3bHCUdjUMpaHaeXO5dF TBpbjtm k331EzDdIOV7HQQukOWqR3Q emM3dDjFfDGJtRKXtO6BnpM NyVWduZ026IXmzWjR4YJBmv bZqC4Ol RDIokQwsZhH0a4U1Ec7Th1E cfyfhNTC6KStsLOS5WhR0Rp LqYfW3Y3UpGwy2NMQjzKnvE L9aR4Ym UPIatbsdfbfeaVG9VWCoVYF tsO87gOKfKPjpTu5iw8C0i8 22JAFbVSWcyB32Kj7hcIxtY TBwdCBU rK9izdndl3ndsbqrWtNvFWQ rWRp8WXp9TDVfqZgnFjCnMW C0HgN3TTS5hURfvM6jxHkse acslM1k Oyc+F57drO7qAYK5FXU6eld pRDSxgxDcYV91GT22U3WnJs wvdGFibGU+PGRpdiBzdHlsZ K3qDwKz a1xts3ZiVMevH0TrKUDjTVq wHqc0DZNuCZB3zCE1bS7uSP GyKXfwl3O4iOG3A0UzubLfp y6ym9su PQPiCOhaA06mrYApw8G2EUS bnXT8MXFzeLjlPyJddY24Mn c+TSDsxGrvn4HlBetdu0kpu 9nayQr5 ExGmGGFjodNmlCqzCOA8a7C qPl57V95cDNdlFDShSCAxPO NzSDGuaWjyau5gvL5xVd5+P GNvbCB3 qNU4xQ1cQCEpYdS1XWfvG84 8TcAmfLRrQslef8mei3ghqV b5ObWmBJQosdSslSymEPB8a 1DbSy32 T48eTTszUXBpTHBiXLPmCFZ ugNufox6ezL5bKn6+PC9jb2 ehnn03hB96bJA+BKNrCIY7o WxlPSdw RPLfaK0uIHhrHhY0MRLcYqE flS45bKVqCYbaOs3dfExfvD elVD1eOMVkidohe976RgQev 2xkIDEw lVQmKKtlVFH0O95oz0K7JEF kDIXoPWC1uVV7vB9drDmhpw ogbGVmdDsgdmVydGljYWwtY AsqB606 IHRvcDsnPlBhdGllbnQgTmF cSLt7N6PhNja7YVAlrBlvAN 2wsSIhSHfsUg5lqTnfeDwfU C2vIMCc sltyo857KpZlq3mwNTLwaIT mLZjlQTF8S31cq6R8SCCkHC WvKCQ3lTP5fZ7wkTthykcmx GVmdDsg xbAzlGqdQVntGUrpL171MWT kgNcjAsJuxgFpRDWtzEL8TT 78HD26sXKgp4S2oBV4S6ZmG GRpbmct sflzxUV5XGHfQHNatG49Lf3 mqMnuDk0aZQMkRDM7AWIdiJ AbS5BtkW5aArQfXAPoGYVvE 3RleHQt SBvtI962KOmwLhI8GZGylpC oN4WmATWteMfzLxZ1s5D0Wt 4JM1E4BK97LL54xUXsd1R4x UJ7O4Pb DZQldgtpethpjZT2IABtSTQ ohW57Tb8fqDfxXz3mDPBeAS L6BUBxcCAiE1ThcG8uXrJfX DAwMDAw X0VglOPeBScxF753NAtjBoZ 6NCGakqZwW2CsPKIcbLpnHw S4i9K2Pp8YJFw8AP90HJ24s TLjx4Z3 zQM3E6IfONUgpcdfefidcTN 8XNIuAZQpwW68Ay6gyZqvZi 8ePRQrOKQ1EYVetDGgC1Cwv D2vXgUa DREdLAGdT8BihGDlQNxzL98 6ULukUcS2DDKpxbAdC1LpRP FwcVztZfL7s9G0Mj4GVKYyW B25YQV2 cSG8CE01FN33C5ZiSobmxFS ibGU+PHRhYmxlIHdpZHRoPS twDYVdFzOegMffIG9hUl3qQ GVyLWNv bRhgvJUnByQwv7nnVVLaVLi lUQ1swJzcL9IusOI0HOOui8 k0Xl12F40cB0YczZQ+PGNvb ID4nGH1 gS0kFwEoTpF5DUijZ577QnC tyYMgBijis2qck9yfiGl2Si A5BDFehtMjkNtuCHZ1n1CmG e94S59x IHdpZHRoPSIxNSUiIHZhbGl nyb6nkJ6hBx8+UILirEE7kA B0eI2pDlYyWeE7SMzaQ131X nRvcCIv Vkbaf4lwm9mkkNw7DvArEXY ygpAsxXdjVRZ2e4PmTv18R0 YkuIhlg6KlNvh5fn38oUEld 8A4kGH5 B2LzQXAhqzefgIMssFngBB1 kNYOxvgasYQLwbK3gNZZdP4 d2XhUlKfW7UKllE2OrrqK7D DEwcHQg XQowNSB6Y46cc7Q2VKGbZUD tRKM9rIZ7mY8liOxqicwziJ VmdDsgdmVydGljYWwtYWxpZ 246IHRv dZqxTGZbjC7eOWFtpARxaOb eYJ5kIZRhqmefJi9UE2CCIp wgSEVBVEhFUjwvdGQ+PHRkI LQ2sQlg NUpaXQHbwZ0fXGDtN6b3VwL jJtO9OMesO2YsQPNkoqksFw 90jX1oXxOcKdH5NCvkZ4Ysr bO4TEDb eJTzAVbhKZH1Y28bq6X9DMW fRKMrYJE7dYM5lO9niSqaoo ogbGVmdDsgdmVydGljYWwtY KygK117 WMGliHnkLkKdJiT0HkC8BZM 8E2BhMba7ELTccJxkON8ahI QhVIytHg9nnPicuIrcXP8tK TBpbjtw YGQsmB9tZJFyeFNmyXgmLO3 cPCHotloyx733DdKePYM4YI CwkKKbX8LejT5rQjEkYPDdR RCnE6Ud yHZkEAwvS831QJafGwY5TIK enfSqZ6DnCXJqwTpfXgR8m9 V8Rd2nBtYCOAOpjpblmMX+P HRkIHN0 uLlgGZyvOBKyuE2pVFOrM5y 0EaIpHcW0RNzyW8OyEUTuqu ooAy22yU3kDaSnUuH9YKyvO 5PjnqX8 GMXarXQvZMydHGC5J55ez2P 8YZVdNVNwIWK1rKS0kG2dyJ lnbjogbGVmdDsgdmVydGljY WwtYWxp E798NQRcpAhkWfQcvEXjHUy vdGQ+QUTrYEU1oHujMVaaDA SebZ4qJKUxW0m9RbFlJpV6Q ZrcN1Rl LLRnmphmIg30iR3cXiOtKgD 6ZXicD5XvozB1AZKhqCAlSV nfANU6N41rl3O1FQAuOFXoM YJ2fJE0 hU2naXzkazmsdXObpGrgtqI ckYsbFDqmLLxbP576JVTgrL dlCj55nKZmkWldmbH9R6BpR jwvdHI+ PY25IQRsND85zCNjvNRdf6y crDs8OoCuRXYpSJL0aYnhWN hsl7PdTELnA75bbFSwv4Q2X GNvbGxh pLFqVdUfxQE6eQ7wIBmycqw bu3rfcrjdScvzh0ocup36yN 22D67gEUbiCICnCBOzEGVzC HZhbGln ch7gwR0wFb0+YEDwlRN2hEK 5yD3nKeQcLcK7SSwzC288Ez HntDKhAfgxq7qxi4xukHw9N jIwJSIg kvPnySdcPJI7b9YvUl06B17 sIHdpZHRoPSIyMCUiIHZhbG peqt1ofY8bJm7+EC4yx7jbm l59fE51 dHI+JKUgUNT0iQqxWTmbDJB msB0hEQnkFuM2JJRcHiKarK 49tDRdOObkUa2yxTcneNqqA F8eASHj kubvb077YiObk3wgOXSxhUM iGRcsKLS1H11hu8Z3UWAgLI KnXCS2aRU4sF4myOixxfope GVmdDsg nzMeoPiuTGoqACnyB956DLR whJaoSyMfpRVeJ0yikiGFGI 1lOjwvdGQ+OAZdZST7xVjqS SdwYWRk lQ0iPMHsN3h1DsNxClD3ZEj sE7KvmmH4JCIvgGUeIOTqjJ ZNkH4dalstx7gwtarwUxJcW DAwMDt0 DMp0EOKjaUkvUmNnCRJ9ZqP 1HNQ7pWImvI2zsGnextonoZ 9wOyc+RklOOjwvdGQ+PHRkI VZ6yTrq MIlkNDCykM8gEUJdP3z8EmR xHoW8NNipN0NmuoZ3MNGbjS CiDXGiyYYVrC6duyoxe9vll jogIzAw ISKfMEu5UAa4FTCxcDgzJcY rCYN1CmN5DKY9lAQbvJ7rjS vwxrbypU2jSca+TVJOOjwvd GQ+PHRk COB5nPxtEQhjIQYnaZ4iQVY jS8h4BbEaOjO6SCsfD8Mozm F4TVHuwWNmNFHytRMHlE4ge yqoa1rv driuUgEgAEAuKRj0JDs3NGT vwCrnSvLrIQQ1RwL8CCT5zA JqhW1jwStiprkwzY2wIax+U XN3WSV3 IF97NX72N8ImGmgsuBWpwBD +PHRhYmxlIHdpZHRoPScxMD LcVxPwsAatIS7aGo9nXCNoT WNvbGxh cHNl (more content not included)... Normal [facility] Consent for Treatmenton 08-16 Consent for Treatment [id number]#1.00C D:127 Normal [facility] Progress Note-Physicianon Progress Note-Physician [id number]#1.00 CD:127 Normal [facility] Holter Monitoron 08-27-2021 Holter Monitor [...] READ BY: Robin Salazar M.D. Dictated: 08/26/2021 [id number] Transcribed: 08/27/2021 cc:Samir Thompson M.D. [facility] Comment on above: Result Comment: Elec tronically Signed By: Martin DAVEY, Robin Galan\.br\Date and Time Signed: 08/27/21 10:21 EDT Holter Monitor [id number] D:127 Normal [facility] Consent for Treatmenton 08-16 Consent for Treatment [id number] D:127 Normal [facility] Coding Summary.on 08-11-2021 Coding Summary. CD:[id number] Gh0 bWw+PGhlYWQ+DF7CAWVzJ85 oaYCnpU9YC4rVTV3NVZWIQD MRHQ2KSZ8vhRD8OJpiA7Yuw iAv PgykkWEiDY24SHc0VYL8cGp oXFtmkW9wwXMxP3q5TgBcLC 80fH12LLgzCPBwIqF2CrBgj jsgbWFy S9aeMkCxfZXlRme+PHRhYmx lIHdpZHRoPScxMDAlJyBzdH laSC0lDy4iPPRwETWwlBbto HNlOiBj k2khIBWtRGfrWJ2gtMliV6A tqHJ5MZVya5s0Hy53nWS+PH VyCEV9tPivEVwca832AeFdr 3jlBED3 tJOoWBnrNLE3H06hc5E6VNY lSBNzMFR3zPV2nV5zdTfxac iuR1OtoPFwYeK5ZSO4pVEwc E8qqLms vvbakF8gUsn+U23REQ6NGSW ZOI7DLph6I8CrSzmfcOQ+PC 16KELwAA57oEVouEIiz3apk Uq0JbTq XMLhZVR8uQyfXXolx5TdHQP vQ34ztZNgx1M2PFNenLlctZ NcUpGxuZQ7oM3wAHoaadcij 2hvdzsn Pkezk0exvw42lZ96I57wBPp hRZIcOZV6VBViNDWuyYmzrn 0wsN0vBu9+QXwbm5btn4lxn Mx3SeEf GUKkopIfyGllTNX9f0KoLy5 8K5DrmPszy2XpEzq8ja81vB Bou4X5xNZ9FCbtGOQuxE0sI WxlZnQ6 KCRzXxGiwT75oLFeBBeyOf3 neBojsPgoEX1cLKLpmezdER KibN2dQEVabVUmdKgcGU1iI TBpbjtm x441TiJxCAD0ZKXofETcY0R xoW6oTrDhDXUfHEJdM8JfdE IhAIzvI324GWxmEhC9FTTly kSfO3Fn EMNdtYssKtM6t7G2Ct8Jn4U svyldKSS8SVreMGA6XeL5Em QzGnR3Y9RtDmh4IOFpeVbmQ J1mT6Iu FQYyuhlwjqbqoJR0QPRiPLW dkI88cDZmAWeqOm8jc1A2d9 70WXMvRYOkvS28Hc1aoGahS TBwdCBU qB9spciis1htvtaaQbPbRBB vETo0EKy5MKBgkGxtJtJuQI G9GeT7ZCO9cPOkiF0bjVdzj wzgiV9f Oyc+P89gjO8sOEL5EKN8nws mRCYywrFiNB14VK05O2TvAi wvdGFibGU+PGRpdiBzdHlsZ G3rTvPh x0ghf4FeTTcdB6JeUXYjTAe cGzj4CUDqLMC5rPV9cT9lDW CkRUqhn8G7gLL8W6MbkrVsp s9rg6kb EJXhIFdcH86grXJyn3F6XTD klVA8XQHceAntPlYgnE16Fc c+ZKVfaGksa6BxKkchs1tqi 6mnmEu0 RnGvBGSljrBdyKhtSRU4u8W sDm97Q91yRZwxLLHnJRGbTN KbMXGehMmugk9lqP9dXz2+P GNvbCB3 lXB9kQ8tOKQmMgD6EFhoV11 2PdBqxPRlOtpqo7bng9bceY w5AbHmTVPwoiRiwTgoSAR7y 3BsMs88 M57uUHyvZILoBUEmAPDqAVQ haBrukp4dfE0gQk9+PC9jb2 jqhm39uS66wFQ+OPIzWSG7u WxlPSdw IWQqnP5sLZdtZsJ9RYPdOcA kjB00iQIeUWehQl9upYdohB veCJ8kHTRxozwqs516ArEnr 2xkIDEw zRGuIGimXMM0P47ol5O5USE dGVTiHBK5bQW8iK0xeCuqqo ogbGVmdDsgdmVydGljYWwtY YwyN692 IHRvcDsnPlBhdGllbnQgTmF sJUk6M2RaNkl2CQLxvMzvJF 9adZVcUSktJf0lwMmlzOsgV T6kWIAf eiobq637TrDpw4mqRUDiiKZ zFLbfNBD3Y96vc2C3JMJmCV DaUQI0rFX8sQ7paSzglgjpk GVmdDsg uyAwzIyfSAkmGGtvA730YPF sjUrzRzFnmhOtLUKmzRL4VW 84HH68oGCnn4V7gLP1G3HsA GRpbmct vyjlnFD7DSTzAFTdsY23Xo9 fuWptLg3rSEDxAMA9KLUaeK WwI0AltH2tMdMhSAOdRCHeL 3RleHQt CApuO451IYscDvN9OEPclfO tD9OhHFWiyKwnXiP0k0I2Ho 4OK2D4KN12LV26eWAjs6I8j RR0O2Sq YTDjmimvtrvchDC5ALJmDPE zyA70Oa1dtPaxAp8vMVHqSZ I3XIUecZXsA5TlaF7dVyIvF DAwMDAw W0EzrBRuPJcbE452HYrkMbQ 9GWUkujDxD7JzKVWwzGbbTa V4h2L3Zu4ZCGw6LP22AW09y DFnn4H8 aZD4A8SnOBWlxufzhrxhwAW 1QOQpLTUieF55Ox7umQcnFa 5fEPNjWUN6FDVhkKQbH7Njg S6gSpPn KGCrXKCgB8BmaDWhJCdwJ61 2XJqeXxM6ILTvccUgV2NdLY YkaCgpBpK8m3B2Zc3AERCiJ M13UXP4 dNJ5WK19HZ44I8WnZpihjHJ ibGU+PHRhYmxlIHdpZHRoPS kzJXFqCfCvyFlnOE9xJv0eS GVyLWNv qHlwwJLnPoHjl7kvZMPsYPu zYX5tfAivI8LemHH9NVIiq2 a7Cx03H76wF1GqlTK+PGNvb ZM7yOZ5 dP5zHcVnCwC0OKjaF165KbR mqDGhFnhcj4uky9iybEk9Ur S9GIZuypXstXryDMR2e3GmA j56H85f IHdpZHRoPSIxNSUiIHZhbGl mji8naI8cRr7+DJWmbKO8hE B5vX1iRrAeWbH4OHugM447M nRvcCIv Wuvih1guv2jaxSo3XoBfJNW hutVnsFtbVQP3q4RxVf13E4 WmwBfvv0UzFis2bs94tQQoz 3Y8iGH5 C8GiOVDhcllmrTPchWupMO1 lQOVhkkluWGHsjZ5qTEBzW5 c4JbHzWoO7OHfdS9DvpfC9B DEwcHQg PAknZEF7P75ka2G1JROtAQV xIVC2pUQ5lF0zmQcnhmszoH VmdDsgdmVydGljYWwtYWxpZ 246IHRv yFirHTQlyV8dTCOqwVWooPf gJE2rXSFkrbimOr3IQ1QLZj wgSEVBVEhFUjwvdGQ+PHRkI NK2oIps ZMwqMIIfrJ2mPOFgY2l8LzF gTgV7GYavA6XqWQLrlsgdYz 95pF7rXeFwBpJ9CAqcU5Mmw gG9MUAq sMBdEQmkWOB7Q70nu9O7XRP oVIJxCWJ4mWW2aB8fqEriti ogbGVmdDsgdmVydGljYWwtY KdnY263 LAVhySkmAiPwZhH1DwE2OFV 7S4QtDba8YGTflAeuXR8jmT SkXXwjSq3vvHbhqRxxVR1dZ TBpbjtw EXOvjL5vEMHtlLDsnKgqPA9 hLMFikthzc026QxEeMJD9OT OpsGFcB7SjvN0xOlNyOIBpK UJtN6Hk gUIaZVvrN943USklDiR1KZP xuhDnU8VpUEUgmRhaAaA2k2 D4Sh5yIkSHABGlkpoefYB+P HRkIHN0 wTbdHSdeLYFssG0qRZVtG6h 8MrAnKqZ0LXhgS8NuIAYoux frOk17xY5nToPaAuF7MOinR 1WbwqN6 KFUhuLMyIFyrEJV4R97qg7W 8BWEtYQAoWYN4rEG2jL2bxP lnbjogbGVmdDsgdmVydGljY WwtYWxp T180KZLuuPhuFdJapMFhYYx vdGQ+PRDjBTI5bRtuUCnyTZ WbhY3iLPIgJ7p5IbHhDsI7U XycR6Qo ZXTraolfCs57zQ4yRiAdFeF 7AGhsX6CbnsC4YJHhdIWzGB vxKEZ4Q53od3Z4DYMtZEPcO DD4lKX5 xN5dyOhxmuaxnNKvlHeanyN tuKpoJDedHMaxZ366ERKqyT ltSd89lMEfjAdhafZ2C2AqS jwvdHI+ JE30EYZgVB51rIKziXKqj3n ubRd5OfHhXQEiVBG2cIyyNA waz1DlSYUdA94iaNGqi8X9G GNvbGxh nZTyGhUxtVK0sJ5cFOdaynm gx7nkekvtSavqw6tcbl96xZ 53J27lUVjvRHLkOFNxIYHrN HZhbGln uy6zrJ7uCm3+RTIclQS3lEY 3aT9mKtOrBxS4GMwnG205Zt XcdYLjXdojx6swn8ljqYi5J jIwJSIg ofDpzHovUHB6v7ZfQw40E37 sIHdpZHRoPSIyMCUiIHZhbG lbso4cwL6iUs4+AC5mj3czc n69wF94 dHI+ZISvQNA1jJyoCYdvVUD zsW6sWChlFzZ6RGLhWrIdnM 85dQMzHNibYd9peUcciVkxG Y0kLACt vsrom261GvUqw4rhEOIqvDT sOOasIHJ6X61le2K2BDOiLG ClSDG5vOG3dP6nuQfhudykd GVmdDsg dmOmbRfoZQzxNPaaL500FBZ zlVpzItLhhPKfI8uwzdLZRS 1lOjwvdGQ+VCGeFLX0qCozI SdwYWRk hF4tDQXhG9n3AvFdMiE3GDf sU6PtmoS1XETtyNRnPKUmeF WObO7sxeajg8sqjyojUiVfB DAwMDt0 UIv6QACrcNrxAqJpNNS7DuJ 8ADE4zHOwjH7zsRfthlocvN 9wOyc+RklOOjwvdGQ+PHRkI BK1wIdb QVxlMYIsgC2xEXBxY7q2ZkO uNzQ7ZEywZ7OrhsT7WAOauG ZcMXYnwKEYhH2hxtowx2xeb jogIzAw VMQtHKg1GSu3GJLbdZvmOpH vHKN5RpL1HSD7kQXkdE4iyB yikcmcpK8mMvd+TVJOOjwvd GQ+PHRk VWP8qRqkKVhkHBLolD3nFYZ vN6v5EuTmPlP1YSuzT6Nekb P5TSJkxLUvOVWroJTHmB6yi leql9zp nkefFuOsPOWoEVo5QDw6BYJ ueWrbAcLgMHH6MdI3WMI8nF LbqN5fwYqldssrwB9bJkp+U ZF5TMG0 QD57EK92N4XvImoajSSzySJ +PHRhYmxlIHdpZHRoPScxMD DeYuXqaReeME3tKm4iWHTsF WNvbGxh cHNl (more content not included)... Normal [facility] Stress EKG Tracingson 2021 Stress EKG Tracings [id number] 052 [id number]#1.00 CD:127 Normal [facility] Consent for Treatmenton 07-18 Consent for Treatment [id number]#1.00C D:127 Normal [facility] Coding Summary.on 08-03-2021 Coding Summary. CD:[id number]:[id number] Gh0 bWw+PGhlYWQ+FA3SOVSbB33 bwULgqW0MA2mNQD5JPYFGHO GMAS2YNW9shNK4KRbiJ2Vdw iAv KnyltQRvEM32KIc6JSI4rVd cWUtamH8keWFdA0t0LyJaQZ 85zV74FNotLVDoWuS6AwDct jsgbWFy X9fwWzBjdZXjCya+PHRhYmx lIHdpZHRoPScxMDAlJyBzdH icRA6tXp0kIWKwSVLlrWetg HNlOiBj r0zdKUDqYSmkJE5gaCwzG5W ruVE9XBByd8g1Vn05xIN+PH HsSRC3xUkkHJfoa912HzHxs 1cgLHN9 mJUaYKaeIYE3Y87yz8A9TZP gIDYrPBP5pDZ0vZ8vbToyoj icJ9DzcFDlEjL2EWK8xSQiz S3osXen prgprN2aGqf+Z72RMT1LYHC XAN7QDzk4A4LnEvaelZO+PC 81ILRvWO84hTYrmEIyl5ysi Uo1WhZz XYLkJDK8iLixCZups4MdMHR qJ09ajRTlr6C8HBTalRkbqD MrPhHepNF9jO5xXKzyvmxgc 2hvdzsn Ligum4what19gR98L94xVUk bSEJoIZP0TGTkXAKtdGkjlw 3vlW8sQu4+ZYytv5ozp6vqg Al6MoVq PTRodaQfkOqjSLI8l3IqWe0 6Z6FwbRpyb5PdMki7du50zR Jzi7A5gLV2ZSquWWJjxU7qC WxlZnQ6 THLwPjFlvL11yLBoOCikIk3 qiOukaCbyTJ4tKWMaxqhzUY MkzC1uDSDfxJHhuZkjCD8cO TBpbjtm k867PiEkVNL1ULMalFAuC9M oqB7vQiJkYWWpINIoF7TcoR AjCFrkO166MKenKfL9JRGgj hXfV3Xx NNWypJtnSrQ9a3V0Wg7Vz3G kowqwITI0CMcdRCS5ZzR7Ow OaVgJ1U0HiCtf2RTJicQxdD O9iB7Pn XMEzumigkychhXI2WXNlGAT pzV78yAUjZPlfIr9ia6J7y8 36KKKdWKSelL54Qz8ewTnmJ TBwdCBU hW7jilztb0nngrusBpLoCBD tQQl9SFw1NITmpFpcRiLtLX G9QfG3TRP5cXDdsV9gjSqlv sknuH7a Oyc+T26zyS0iSAX3PXN0meq qGJDpnhSxCQ65RT52J6FqMo wvdGFibGU+PGRpdiBzdHlsZ P0jLpYn s7yna0LaOYokI7ApLXXiXCn mAee0CZSbSJM8jKS2pK1zBW VkPCobg0C7wNF4L9UcbgFya p1cg3lk QBGpVWhfF84efDOcl7I3VBS odSE3GXFaxWquKxVsjD12Pi c+DLNrqRmiu7DrHehwg8auw 0jynDj7 BhUaDVFqfcAoiVsmKUA6v7Z nTv01G21eOLcxNAEbGIHaCJ FfVQGikSmsic9pyI2oHo0+P GNvbCB3 hPY7vA4aFCNkTmR9ROnhN18 8EiJysICdZbawu0fsc4esoR v9TtKhNGBsgkHraZywGVQ1e 6TkDd86 T03xNIxmIQHeAVHvWRFzNSY qeGekuu1kpE2qEq7+PC9jb2 qucc16cU65pXY+ITKrREN2j WxlPSdw IIPboW7cTAzfYeS5AAWvQmZ lmS70lOSqGAhaTk3tbOvofX pcWD9hLWHodmwha467LeAvw 2xkIDEw cSAsLIheBFI1Q71ym3P3UAE tCEKaUQO1uWZ2vR2doWmgag ogbGVmdDsgdmVydGljYWwtY BeiD103 IHRvcDsnPlBhdGllbnQgTmF mSEf6L0NeDxz6NWXrgWryAH 8pzRGcYRbyXs2amMwthNwjL U2xFUEa bgwum771TyVuy1mwQDKxdAZ qJCiyMZG5L55xu2Y1JEAtSV NbYVC6pHC2wF3eoHguvzqpz GVmdDsg fnYelXikVXjaNUalN160YJR idUnwMbHhsvMrFAIafXY2HN 66AJ34dBWom1Q4uKO9B4XcG GRpbmct ncuucKB1XOKwFKDwsI53Aj2 zaQwwPz4zYCTuNUV8VFWrvB YiP9PvlZ0vCpKiWQIlIUAtM 3RleHQt HEmwL028ALfvNpO9JGBecvJ pX5AoIDXvrNwyIdI5z5P0Fe 8EF0V5MH84NX09cQLwk7X4y SB6W1Wx RXUuflwtrxpxlEV9UQYlBOT tkM04Ia2zlThdLj9hTTIsFN R5TURssQZfQ9LvcU6vKtQkS DAwMDAw K0NolMVjIVjuP450FUmtVtM 8OMMribWzE5YtZMJlyMfcRp A9s6C2Xz7QJAr6OU41NV08k JMit0L6 aTK6G9CcTVRdtptwdrcrcSU 4CXSmIILtdQ93Jg5voQqpSg 8iIFLkSSN9UXIhvKKuS3Eii N1wNwCa JCEqKWFbQ8NzwRXaXGamK92 6YPxvBkG3LTGryvPgS1VqTX YbfUhyUsZ2u4T4Af3MYJKqC L61ZEK1 nEZ9ZN54HW73G2FkPvxjqGH ibGU+PHRhYmxlIHdpZHRoPS qkJRIfNpCltPlaKE9jLo2mI GVyLWNv cJuezGJiBzHmz4deQSAuWWo yYD8htAexY1EgrRC5SFEvl3 n4Cr32U87nF3MjaTC+PGNvb QB8tCS4 iG1eFqZyHiB1ILyoS664KqD geRAwUjhpo7itb7kqpLn9Gx E3ULLtgwAcqVcfRMP6h0QsY e22H71e IHdpZHRoPSIxNSUiIHZhbGl svv4ltU0wMz6+NGHxwKN5cJ N3mM5oUvLjGhH6YVyuT533S nRvcCIv Cbpml5sih1lupDn1JnBePKI hmdRqfUqyHVM6u6OuDz14L3 VxtPfpu2YoIto0uo78ePQjz 0A4pCT8 O1RfDWIoxylluJWmfHjmFE1 tNIWfgwiwHMAsyT7kPXXuG6 r4GsKuDmW6GZtcH9FngqS0F DEwcHQg GMvwHKY9M83hd5W3BXLcDIM cPMH9pJV3aV0ksNfefvabmR VmdDsgdmVydGljYWwtYWxpZ 246IHRv wSmoMRLxnU5zJRJejQBkeGd gMJ6vTFYjmxnzLr2UE6SYIa wgSEVBVEhFUjwvdGQ+PHRkI CJ7dWgr UEvyHDAhdE6lDHOaS9n9GqE bMyY0ZTlyG0ZpXAZrnuuxGb 62iF9zZcUgRlL2FKuqL8Ivj rA2SIQy eQLeYBbrHND7X05tt8H8PPF sZWGeOCC5sHG9xA1dfBdiuh ogbGVmdDsgdmVydGljYWwtY SsdN307 BYCkcPelBpRhMvZ8AkU5JYD 1L1NkHcw5MCEcoSajTS0mfL UhUInxXj8yjXpvfYpqGJ5wF TBpbjtw FYBpvX4uUZOsyCZqcRrlJM2 uKNXgxjnsj923NjQvWUX0BG WqiYTpI2VwdC5cAeGeNPKgD MNpU1Gs eAUpUVuoA962DUrtWyQ5AGL hioVpM5JrWJGsnNpjWfA6q1 T3Md4wXiGOMFFxigfrhQL+P HRkIHN0 cBbxCEtjILJuxJ0fNRPgP4z 7EvXwIaI9SCezS6UkEGHcce koTv59cP9lLsHbSjX3XRxrJ 0SsnpH2 PPGizLAcNTniJZQ3J64vt0E 1BVPdAZXkKUX2rEL0fQ6pnO lnbjogbGVmdDsgdmVydGljY WwtYWxp D326MWGzlDvgCyMxeDIrYTj vdGQ+LWTrSNE1bRxnNHtoQN XcxI3gHEHbY0y4XbToLcY2U FzmE2Zg VCVumazoWj49jG1nLwZsVtO 5MQbdY9PqxiD6AHHftGQhDA aeLBU9M91oq6M3QJKsHTVzI JU8oLD3 rG1cwGljpyctdUMhoKuooeT vsNdxCSawQJsdP921RQWwrO usTj29iSJcxKuakpU8Z3UpH jwvdHI+ AC73ZKPwEH46xPNbcWNfq8b vmBs1PhWbAGMaTJM2lPnsJF rww8GnDNUcW36gnYJjm9D5P GNvbGxh tVAeScEylYQ5aO6bBEgbazm hx4lwkuorQaleo2afhh84iD 42B86jZYwrAYGuYYVzIEXdJ HZhbGln rh4bgU0kUz4+KMEasVO4nJA 2uP0cSsQzQhY8JOzuH937Df DzvGEjXikdn6fml0lbtZf6W jIwJSIg gcHnkBkaVPZ6b3QkMw86X43 sIHdpZHRoPSIyMCUiIHZhbG aywt4naW1fQa2+GF0jo3qvl b92sK16 dHI+QZXqGVX0tRbaNSotKST kuA8gHTzbOvS9XJRoVfKthF 40rGOjDUgcIo3lnHndlIpgW X5fUXMo hsfmm089FrMat0zyWOHxeAA cQMbxCAG5Z01ox0K0NJLmZF OgBEU2mST6xL0hwNjcfmzij GVmdDsg fxEtlXhuYNkxALwzH475WCR rvAspJzQkjHMgG0cprlZZJR 1lOjwvdGQ+GWNbAAJ1bZspS SdwYWRk rI5lYVMjM6h1JpTvTyG7UPi rG4MeznG1NCEbdHKjQHTyzR UDwK9arlprm1atiichJxBfC DAwMDt0 CFq4SHDmtNorOpGqVHS6XxJ 0VSG7wWIjhQ5alGtsgfcyhD 9wOyc+RklOOjwvdGQ+PHRkI LZ1jFfp QVkkCQIzmY9qCLGiD6m5DiA fHvD2UVvvV9JpsgA4TWQwzI LfCOHaeDPIgL7aynpfq4fby jogIzAw HBRzUOh5VWr0QDOitKavVdY iUKH7AoD3LWU8pQRsmL0teP fbvnohbZ0dLpx+TVJOOjwvd GQ+PHRk YEA2sJdsBCxbUQEvzH1uZCA jE7h9SkKjYhU2JWvmY9Ginm K5BAGczOKzDNMyyPEYqB9ik ofaa6gq pjshRlAmSKEtUXm0OSo2ADB bnMkfGgVnEHB1ViE5WWX0gN MaeN2peBsddmdnmY4pWez+U LB8OCN3 KE02SQ80P8CuSbfksDSwhEN +PHRhYmxlIHdpZHRoPScxMD RkEzWywLbgFR2yIa0fOPSgM WNvbGxh cHNl (more content not included)... Normal [facility] Progress Note-Physicianon Progress Note-Physician [id number]#1.00 CD:127 Normal [facility] Heart and Vascular Office/Cl inic [...] with exercise. She presented to [facility] 2 weeks ago for suspected nephrolithiasis [...] Jack [employer]ience to record this visit. ANAMARIA academic affairs specialist and provider reviewed before signing. ANAMARIA: [...] Never [place] (more content not included)... Normal [facility] Comment on above: Result Comment: Elec tronically Signed By: Jay DAVEY, Samir Rivera\.br\Date and Time Signed: 07/27/21 10:44 EDT\.br\Electronically Co-Signed By: Rissa Arias\.br\Date and Time Co-Signed: 07/24/21 16:24 EDT Consent for Treatmenton Consent for Treatment [id number]#1.00C D:127 [facility] Referrals Officeon 2 Referrals Office [id number] [id number]#1.00 CD:[id number] [facility] BASIC METABOLIC PANELon 04-19 Anion gap [Moles/Vol] 8 mmol/L Low 9 - 17 mmol/L [facility] [employer] Bun/Cre Ratio NOT REPORTED [place] Calcium [Mass/Vol] 9.2 mg/dL 8.6 - 10. 4 mg/dL [facility], [place] Chloride [Moles/Vol] 105 mmol/L 98 - 10 7 mmol/L [facility], [place] CO2 [Moles/Vol] 26 mmol/L 20 - 31 mmol/L [facility], [place] Creatinine [Mass/Vol] 0.67 mg/dL 0.5 - 0.9 mg/dL [facility] [employer] GFR >60 >60 mL/min [facility] [employer] GFR Non- >60 >60 mL/min [facility] [employer] GFR/1.73 sq M predicted among non-blacks MDRD (S/P/Bld) [Vol rate/Area] NOT REPORTED [facility] [employer], [place] GFR/1.73 sq M predicted among non-blacks MDRD (S/P/Bld) [Vol rate/Area] [place], [place] Comment on above: Average GFR for 20-2 9 years old: 116 mL/min/1.73sq m Chronic Kidney Disease: <60 mL/min/1.73sq m Kidney failure: <15 mL/min/1.73sq m eGFR calculated using average adult body mass. Additional eGFR calculator available at: http://www.iAcademic/MyFrontSteps_crcl_2011.htm Glucose [Mass/Vol] 99 mg/dL 70 - 99 mg/dL [place], [place] Interpretation and review of laboratory results Abnormal [place] Potassium [Moles/Vol] 4.5 mmol/L 3.7 - 5.3 mmol/L [place] Sodium [Moles/Vol] 139 mmol/L 135 - 144 mmol/L [place] Urea nitrogen [Mass/Vol] 5 mg/dL Low 6 - 20 mg/dL [place] Basic Metabolic Profon 05-08 (cont.) Normal [facility] Comment on above: Result Comment: Aver age GFR for 20-29 years old: 116 mL/min/1.73sq m Chronic Kidney Disease: <60 mL/min/1.73sq m Kidney failure: <15 mL/min/1.73sq m eGFR calculated using average adult body mass. Additional eGFR calculator available at: http://www.iAcademic/MyFrontSteps_crcl_2011.htm Performed By: #### C BC, PT, PTT, BMP #### [employer] [address] [place] [address] Fabric Sourcer: Casey Marques MD #### ANALI #### [facility] [address] [place] [address] Fabric Sourcer: Adolph Diaz MD Anion gap [Moles/Vol] 8 mmol/L Low 9-17 [facility] Comment on above: Performed By: #### C BC, PT, PTT, BMP #### [address] [address] Fabric Sourcer: Casey Marques MD #### ANICOT #### [facility] [address] [place] [address] Fabric Sourcer: Adolph Diaz MD Calcium [Mass/Vol] 9.2 mg/dL Normal 8.6-10.4 [facility] Comment on above: Performed By: #### C BC, PT, PTT, BMP #### [address] [address] Fabric Sourcer: Casey Marques MD #### ANICOT #### [address] [address] Fabric Sourcer: Adolph Diaz MD Chloride [Moles/Vol] 105 mmol/L Normal 98-107 [facility] Comment on above: Performed By: #### C BC, PT, PTT, BMP #### [address] [address] Fabric Sourcer: Casey Marques MD #### ANICOT #### [address] [address] Fabric Sourcer: Adolph Diaz MD CO2 [Moles/Vol] 26 mmol/L Normal 20-31 [facility] Comment on above: Performed By: #### C BC, PT, PTT, BMP #### [address] [address] Fabric Sourcer: Casey Marques MD #### ANICOT #### [facility] [address] [place] [address] Fabric Sourcer: Adolph Diaz MD Creatinine [Mass/Vol] 0.67 mg/dL Normal 0.50-0.90 [facility] Comment on above: Performed By: #### C BC, PT, PTT, BMP #### [facility] [address] [place] [address] Fabric Sourcer: Casey Marques MD #### ANICOT #### [facility] [address] [place] [address] Fabric Sourcer: Adolph Diaz MD GFR, Amer >60 Normal >60 [facility] Comment on above: Performed By: #### C BC, PT, PTT, BMP #### [address] [address] Fabric Sourcer: Casey Marques MD #### ANICOT #### [facility] [address] [place] [address] Fabric Sourcer: Adolph Diaz MD GFR,non Amer >60 Normal >60 [facility] Comment on above: Performed By: #### C BC, PT, PTT, BMP #### [address] [address] Fabric Sourcer: Casey Marques MD #### ANICOT #### [facility] [address] [place] [address] Fabric Sourcer: Adolph Diaz MD Glucose [Mass/Vol] 99 mg/dL Normal 70-99 [facility] Comment on above: Performed By: #### C BC, PT, PTT, BMP #### [address] [address] Fabric Sourcer: Casey Marques MD #### ANICOT #### [facility] [address] [place] [address] Fabric Sourcer: Adolph Diaz MD Potassium [Moles/Vol] 4.5 mmol/L Normal 3.7-5.3 [facility] Comment on above: Performed By: #### C BC, PT, PTT, BMP #### [address] [address] Fabric Sourcer: Casey Marques MD #### ANICOT #### [facility] [address] [place] [address] Fabric Sourcer: Adolph Diaz MD Sodium [Moles/Vol] 139 mmol/L Normal 135-144 [facility] Comment on above: Performed By: #### C BC, PT, PTT, BMP #### [address] [address] Fabric Sourcer: Casey Marques MD #### ANICOT #### [facility] [address] [place] [address] Fabric Sourcer: Adolph Diaz MD Urea nitrogen [Mass/Vol] 5 mg/dL Low -20 [facility] Comment on above: Performed By: #### C BC, PT, PTT, BMP #### [address] [address] Fabric Sourcer: Casey Marques MD #### ANICOT #### [facility] [address] [place], [place] [id number] Fabric Sourcer: Adolph Diaz MD BUN/CRE Ratio NOT REPORTED Normal -20 [facility] Comment on above: Performed By: #### C BC, PT, PTT, BMP #### [address] [address] Fabric Sourcer: Casey Marques MD #### ANICOT #### [facility] [address] [place] [address] Fabric Sourcer: Adolph Diaz MD Staging: NOT REPORTED Normal [facility] Comment on above: Performed By: #### C BC, PT, PTT, BMP #### [facility] [address] [place] [address] Fabric Sourcer: Casey Marques MD #### ANICOT #### [facility] [address] [place] [address] Fabric Sourcer: Adolph Diaz MD CBC WITH AUTO DIFFERENTIALon 05-08-2020 Basophils (Bld) [#/Vol] 0.06 10*3/uL [place] Basophils/100 WBC (Bld) 1 % 0 - 2 % [place] Differential Type NOT REPORTED [place] Eosinophils (Bld) [#/Vol] 0.35 10*3/uL [place] Eosinophils/100 WBC (Bld) 3 % 1 - 4 % [place] Erythrocyte distribution width (RBC) [Ratio] 14.7 % High 11.8 - 14.4 % [place] Hematocrit (Bld) [Volume fraction] 38.4 % 36.3 - 47.1 % [place] Hemoglobin (Bld) [Mass/Vol] 12.0 g/dL 11.9 - 15.1 g/dL [place] Immature granulocytes (Bld) [#/Vol] 1 % High 0 [place] Immature granulocytes (Bld) [#/Vol] 0.06 10*3/uL [place] Interpretation and review of laboratory results Abnormal [place] Lymphocytes (Bld) [#/Vol] 2.21 10*3/uL [place] Lymphocytes/100 WBC (Bld) 21 % Low 24 - 43 % [place] MCH (RBC) [Entitic mass] 26.5 pg 25.2 - 33.5 pg [place] MCHC (RBC) [Mass/Vol] 31.3 g/dL 28.4 - 34.8 g/dL [place] MCV (RBC) [Entitic vol] 85.0 fL 82.6 - 102.9 fL [place] Monocytes (Bld) [#/Vol] 0.71 10*3/uL [place] Monocytes/100 WBC (Bld) 7 % 3 - 12 % [place] Platelet mean volume (Bld) [Entitic vol] 8.6 fL 8.1 - 13.5 fL [place] Platelets (Bld) [#/Vol] 256 10*3/uL [place] Platelets (Bld) [#/Vol] NOT REPORTED [place] RBC (Bld) [#/Vol] 4.52 10*6/uL 3.95 - 5.1 1 m/uL [place] RBC morphology finding Nom (Bld) ANISOCYTOSIS PRESENT [place], [place] Segmented neutrophils/100 WBC (Bld) 67 % High 36 - 65 % [place] Segs Absolute 7.30 [place] WBC (Bld) [#/Vol] 10.7 10*3/uL [place] WBC (Bld) [#/Vol] 0.0 10*3/uL 0.0 per 10 0 WBC [place] WBC Morphology NOT REPORTED [place], [place] CBC with Diffon 05-08-2020 Abs. Basophil 0.06 k/uL Normal 0.00-0.20 [facility] Comment on above: Performed By: #### C BC, PT, PTT, BMP #### [address] [id number] Fabric Sourcer: Casey Marques MD #### ANSAMMIET #### [facility] [address] [place] [address] Fabric Sourcer: Adolph Diaz MD Abs.Imm.Granulocyte 0.06 k/uL Normal 0.00-0.30 [facility] Comment on above: Performed By: #### C BC, PT, PTT, BMP #### [facility] [address] [place] [id number] Fabric Sourcer: Casey Marques MD #### ANICOT #### [facility] [address] [place] [address] Fabric Sourcer: Adolph Diaz MD Abs.Neutrophil (Seg) 7.30 k/uL Normal 1.50-8.10 [facility] Comment on above: Performed By: #### C BC, PT, PTT, BMP #### [address] [address] Fabric Sourcer: Casey Marques MD #### ANICOT #### [facility] [address] [place], [place] [id number] Fabric Sourcer: Adolph Diaz MD Basophils/100 WBC (Bld) 1 % Normal 0-2 [facility] Comment on above: Performed By: #### C BC, PT, PTT, BMP #### [address] [address] Fabric Sourcer: Casey Marques MD #### ANICOT #### [address] [id number] Fabric Sourcer: Adolph Diaz MD Eosinophils (Bld) [#/Vol] 0.35 10*3/uL Normal 0.00-0.44 [facility] Comment on above: Performed By: #### C BC, PT, PTT, BMP #### [address] [address] Fabric Sourcer: Casey Marques MD #### ANICOT #### [facility] [address] [place] [id number] Fabric Sourcer: Adolph Diaz MD Eosinophils/100 WBC (Bld) 3 % Normal 1-4 [facility] Comment on above: Performed By: #### C BC, PT, PTT, BMP #### [address] [address] Fabric Sourcer: Casey Marques MD #### ANICOT #### [facility] [address] [place], [place] [id number] Fabric Sourcer: Adolph Diaz MD Erythrocyte distribution width (RBC) [Ratio] 14.7 % High 11.8-14.4 [facility] Comment on above: Performed By: #### C BC, PT, PTT, BMP #### [facility] [address] [place] [address] Fabric Sourcer: Casey Marques MD #### ANICOT #### [facility] [address] [place], [place] [id number] Fabric Sourcer: Adolph Diaz MD Hematocrit (Bld) [Volume fraction] 38.4 % Normal 36.3-47.1 [facility] Comment on above: Performed By: #### C BC, PT, PTT, BMP #### [address] [address] Fabric Sourcer: Casey Marques MD #### ANICOT #### [address] [id number] Fabric Sourcer: Adolph Diaz MD Hemoglobin (Bld) [Mass/Vol] 12.0 g/dL Normal 11.9-15.1 [facility] Comment on above: Performed By: #### C BC, PT, PTT, BMP #### [address] [address] Fabric Sourcer: Casey Marques MD #### ANICOT #### [address] [id number] Fabric Sourcer: Adolph Diaz MD Immature granulocytes/100 WBC (Bld) 1 % High 0 [facility] Comment on above: Performed By: #### C BC, PT, PTT, BMP #### [facility] [address] [place] [address] Fabric Sourcer: Csaey Marques MD #### ANICOT #### [facility] [address] [place], [place] [id number] Fabric Sourcer: Adolph Diaz MD Lymphocytes (Bld) [#/Vol] 2.21 10*3/uL Normal 1.10-3.70 [facility] Comment on above: Performed By: #### C BC, PT, PTT, BMP #### [facility] [address] [place] [address] Fabric Sourcer: Casey Marques MD #### ANICOT #### [facility] [address] [place], [place] [id number] Fabric Sourcer: Adolph Diaz MD Lymphocytes/100 WBC (Bld) 21 % Low 24-43 [facility] Comment on above: Performed By: #### C BC, PT, PTT, BMP #### [facility] [address] [place] [address] Fabric Sourcer: Casey Marques MD #### ANICOT #### [facility] [address] [place], [place] [id number] Fabric Sourcer: Adolph Diaz MD MCH (RBC) [Entitic mass] 26.5 pg Normal 25.2-33.5 [facility] Comment on above: Performed By: #### C BC, PT, PTT, BMP #### [address] [phone] Fabric Sourcer: Casey Marques MD #### ANICOT #### [facility] [address] [place] [address] Fabric Sourcer: Adolph Diaz MD MCHC (RBC) [Mass/Vol] 31.3 g/dL Normal 28.4-34.8 [facility] Comment on above: Performed By: #### C BC, PT, PTT, BMP #### [address] [id number] Fabric Sourcer: Casey Marques MD #### ANICOT #### [facility] [address] [place] [address] Fabric Sourcer: Adolph Diaz MD MCV (RBC) [Entitic vol] 85.0 fL Normal 82.6-102.9 [facility] Comment on above: Performed By: #### C BC, PT, PTT, BMP #### [address] [address] Fabric Sourcer: Casey Marques MD #### ANICOT #### [facility] [address] [place] [address] Fabric Sourcer: Adolph Diaz MD Monocytes (Bld) [#/Vol] 0.71 10*3/uL Normal 0.10-1.20 [facility] Comment on above: Performed By: #### C BC, PT, PTT, BMP #### [address] [address] Fabric Sourcer: Casey Marques MD #### ANICOT #### [facility] [address] [place], [place] [id number] Fabric Sourcer: Adolph Diaz MD Monocytes/100 WBC (Bld) 7 % Normal 3-12 [facility] Comment on above: Performed By: #### C BC, PT, PTT, BMP #### [address] [address] Fabric Sourcer: Casey Marques MD #### ANICOT #### [facility] [address] [place] [address] Fabric Sourcer: Adolph Diaz MD Neutrophil (Seg) 67 % High 36-65 [facility] Comment on above: Performed By: #### C BC, PT, PTT, BMP #### [facility] [address] [place] [address] Fabric Sourcer: Casey Marques MD #### ANICOT #### [facility] [address] [place] [address] Fabric Sourcer: Adolph Diaz MD NRBC Automated 0.0 per 100 WBC Normal 0.0 [facility] Comment on above: Performed By: #### C BC, PT, PTT, BMP #### [address] [address] Fabric Sourcer: Casey Marques MD #### ANICOT #### [facility] [address] [place] [address] Fabric Sourcer: Adolph Diaz MD Platelet mean volume (Bld) [Entitic vol] 8.6 fL Normal 8.1-13.5 [facility] Comment on above: Performed By: #### C BC, PT, PTT, BMP #### [address] [address] Fabric Sourcer: Casey Marques MD #### ANICOT #### [facility] [address] [place], [place] [id number] Fabric Sourcer: Adolph Diaz MD Platelets (Bld) [#/Vol] 256 10*3/uL Normal 138-453 [facility] Comment on above: Performed By: #### C BC, PT, PTT, BMP #### [address] [address] Fabric Sourcer: Casey Marques MD #### ANICOT #### [facility] [address] [place], [place] [id number] Fabric Sourcer: Adolph Diaz MD RBC (Bld) [#/Vol] 4.52 10*6/uL Normal 3.95-5.11 [facility] Comment on above: Performed By: #### C BC, PT, PTT, BMP #### [address] [address] Fabric Sourcer: Casey Marques MD #### ANICOT #### [facility] [address] [place], [place] [id number] Fabric Sourcer: Adolph Diaz MD RBC morphology finding Nom (Bld) ANISOCYTOSIS PRESENT Normal [facility] Comment on above: Performed By: #### C BC, PT, PTT, BMP #### [facility] [place] [address] Fabric Sourcer: Casey Marques MD #### ANICOT #### [facility] [address] [place] [address] Fabric Sourcer: Adolph Diaz MD WBC (Bld) [#/Vol] 10.7 10*3/uL Normal 3.5-11.3 [facility] Comment on above: Performed By: #### C BC, PT, PTT, BMP #### [facility] [address] [place] [address] Fabric Sourcer: Casey Marques MD #### ANICOT #### [facility] [address] [place], [place] [id number] Fabric Sourcer: Adolph Diaz MD Auto Diff Performed NOT REPORTED Normal [facility] Comment on above: Performed By: #### C BC, PT, PTT, BMP #### [facility] [address] [place] [address] Fabric Sourcer: Casey Marques MD #### ANICOT #### [facility] [address] [place], [place] [id number] Fabric Sourcer: Adolph Diaz MD Platelet Estimate NOT REPORTED Normal [facility] Comment on above: Performed By: #### C BC, PT, PTT, BMP #### [facility] [address] [place] [address] Fabric Sourcer: Casey Marques MD #### ANICOT #### [facility] [address] [place], [place] [id number] Fabric Sourcer: Adolph Diaz MD WBC Morphology NOT REPORTED Normal [facility] Comment on above: Performed By: #### C BC, PT, PTT, BMP #### [facility] [address] [place] [address] Fabric Sourcer: Casey Marques MD #### ANICOT #### [facility] [address] [place] [address] Fabric Sourcer: Adolph Diaz MD Surgical Pathologyon 021 Surgical Pathology Report -- Diagnosis -- STOMACH, SLEEVE GASTRECTOMY: - MODERATE CHRONIC INACTIVE GASTRITIS. - NEGATIVE FOR ACTIVE GASTRITIS, INTESTINAL METAPLASIA OR DYSPLASIA. Araon Saunders M.D. Electronically Signed Out jet05/08/2020 Clinical [...] with no areas of granularity or masses. [employer] sections 1cs. tm Microscopic Description Sections of gastric mucosa show increased lymphocytes and plasma cells in the lamina propria. There is no evidence of acute inflammation, intestinal metaplasia or dysplasia. There is no evidence of organisms suspicious for Helicobacter with the routine H&E stains. SURGICAL PATHOLOGY CONSULTATION Patient Name: JAZ SANDERS [facility] Rec: [id number] Path Number: [id number] [facility] [employer] [facility]AT[facility] [address] [place] [address]. [place], [place] [address] [place], [place] Basic Metabolic Panelon 04-19 Anion gap [Moles/Vol] 13 mmol/L 9 - 17 mmol/L [place] Bun/Cre Ratio NOT REPORTED [place] Calcium [Mass/Vol] 9.4 mg/dL 8.6 - 10. 4 mg/dL [place] Chloride [Moles/Vol] 104 mmol/L 98 - 10 7 mmol/L [place] CO2 [Moles/Vol] 23 mmol/L 20 - 31 mmol/L [place] Creatinine [Mass/Vol] 0.73 mg/dL 0.5 - 0.9 mg/dL [place] GFR >60 >60 mL/min [place] GFR Non- >60 >60 mL/min [place] GFR/1.73 sq M predicted among non-blacks MDRD (S/P/Bld) [Vol rate/Area] NOT REPORTED [place] GFR/1.73 sq M predicted among non-blacks MDRD (S/P/Bld) [Vol rate/Area] [place] Comment on above: Average GFR for 20-2 9 years old: 116 mL/min/1.73sq m Chronic Kidney Disease: <60 mL/min/1.73sq m Kidney failure: <15 mL/min/1.73sq m eGFR calculated using average adult body mass. Additional eGFR calculator available at: http://www.iAcademic/multiple_crcl_2011.htm Glucose [Mass/Vol] 98 mg/dL 70 - 99 mg/dL [place] Potassium [Moles/Vol] 4.1 mmol/L 3.7 - 5.3 mmol/L [place] Sodium [Moles/Vol] 140 mmol/L 135 - 144 mmol/L [place] Urea nitrogen [Mass/Vol] 6 mg/dL 6 - 20 mg/dL [place] Basic Metabolic Profon 05-07 (cont.) Normal [facility] Comment on above: Result Comment: Aver age GFR for 20-29 years old: 116 mL/min/1.73sq m Chronic Kidney Disease: <60 mL/min/1.73sq m Kidney failure: <15 mL/min/1.73sq m eGFR calculated using average adult body mass. Additional eGFR calculator available at: http://www.iAcademic/multiple_crcl_2012.htm Performed By: #### TERRANCE FLORES #### [employer] [address] [place] [address] Fabric Sourcer: Casey Marques MD Anion gap [Moles/Vol] 13 mmol/L Normal 9-17 [facility] Comment on above: Performed By: #### C BC, BMP #### [facility] [address] [place] [address] Fabric Sourcer: Casey Marques MD Calcium [Mass/Vol] 9.4 mg/dL Normal 8.6-10.4 [facility] Comment on above: Performed By: #### C BC, BMP #### [facility] [address] [place] [address] Fabric Sourcer: Casey Marques MD Chloride [Moles/Vol] 104 mmol/L Normal 98-107 [facility] Comment on above: Performed By: #### C BC, BMP #### [facility] [address] [place] [address] Fabric Sourcer: Casey Marques MD CO2 [Moles/Vol] 23 mmol/L Normal 20-31 [facility] Comment on above: Performed By: #### C BC, BMP #### [facility] [address] [place] [address] Fabric Sourcer: Casey Marques MD Creatinine [Mass/Vol] 0.73 mg/dL Normal 0.50-0.90 [facility] Comment on above: Performed By: #### C BC, BMP #### [facility] [address] [place] [address] Fabric Sourcer: Casey Marques MD GFR, Amer >60 Normal >60 [facility] Comment on above: Performed By: #### C BC, BMP #### [facility] [address] [place] [address] Fabric Sourcer: Casey Marques MD GFR,non Amer >60 Normal >60 [facility] Comment on above: Performed By: #### C BC, BMP #### [facility] [address] [place] [address] Fabric Sourcer: Casey Marques MD Glucose [Mass/Vol] 98 mg/dL Normal 70-99 [facility] Comment on above: Performed By: #### C BC, BMP #### [address] [address] Fabric Sourcer: Casey Marques MD Potassium [Moles/Vol] 4.1 mmol/L Normal 3.7-5.3 [facility] Comment on above: Performed By: #### C BC, BMP #### [address] [address] Fabric Sourcer: Casey Marques MD Sodium [Moles/Vol] 140 mmol/L Normal 135-144 [facility] Comment on above: Performed By: #### C BC, BMP #### [facility] [address] [place] [address] Fabric Sourcer: Casey Marques MD Urea nitrogen [Mass/Vol] 6 mg/dL Normal 6-20 [facility] Comment on above: Performed By: #### C BC, BMP #### [address] [address] Fabric Sourcer: Casey Marques MD BUN/CRE Ratio NOT REPORTED Normal -20 [facility] Comment on above: Performed By: #### C BC, BMP #### [address] [address] Fabric Sourcer: Casey Marques MD Staging: NOT REPORTED Normal [facility] Comment on above: Performed By: #### C BC, BMP #### [facility] [address] [place] [address] Fabric Sourcer: Casey Marques MD CBCon 05-07-2020 Erythrocyte distribution width (RBC) [Ratio] 14.4 % Normal 11.8-14.4 [facility] Comment on above: Performed By: #### C BC, BMP #### [address] [address] Fabric Sourcer: Casey Marques MD Hematocrit (Bld) [Volume fraction] 40.4 % Normal 36.3-47.1 [facility] Comment on above: Performed By: #### C BC, BMP #### [facility] [address] [place] [address] Fabric Sourcer: Casey Marques MD Hemoglobin (Bld) [Mass/Vol] 12.6 g/dL Normal 11.9-15.1 [facility] Comment on above: Performed By: #### C BC, BMP #### [address] [address] Fabric Sourcer: Casey Marques MD MCH (RBC) [Entitic mass] 26.1 pg Normal 25.2-33.5 [facility] Comment on above: Performed By: #### C BC, BMP #### [address] [address] Fabric Sourcer: Casey Marques MD MCHC (RBC) [Mass/Vol] 31.2 g/dL Normal 28.4-34.8 [facility] Comment on above: Performed By: #### C BC, BMP #### [address] [address] Fabric Sourcer: Casey Marques MD MCV (RBC) [Entitic vol] 83.8 fL Normal 82.6-102.9 [facility] Comment on above: Performed By: #### C BC, BMP #### [address] [address] Fabric Sourcer: Casey Marques MD NRBC Automated 0.0 per 100 WBC Normal 0.0 [facility] Comment on above: Performed By: #### C BC, BMP #### [facility] [address] [place] [address] Fabric Sourcer: Casey Marques MD Platelet mean volume (Bld) [Entitic vol] 8.7 fL Normal 8.1-13.5 [facility] Comment on above: Performed By: #### C ABHAY, BMP #### [facility] [place] [address] Fabric Sourcer: Casey Marques MD Platelets (Bld) [#/Vol] 289 10*3/uL Normal 138-453 [facility] Comment on above: Performed By: #### C BC, BMP #### [facility] [address] [place] [address] Fabric Sourcer: Casey Marques MD RBC (Bld) [#/Vol] 4.82 10*6/uL Normal 3.95-5.11 [facility] Comment on above: Performed By: #### C ABHAY, BMP #### [facility] [address] [place] [address] Fabric Sourcer: Caesy Marques MD WBC (Bld) [#/Vol] 13.7 10*3/uL High 3.5-11.3 [facility] Comment on above: Performed By: #### C ABHAY, BMP #### [facility] [address] [place] [address] Fabric Sourcer: Casey Marques MD Erythrocyte distribution width (RBC) [Ratio] 14.4 % 11.8 - 14.4 % [place] Hematocrit (Bld) [Volume fraction] 40.4 % 36.3 - 47.1 % [place] Hemoglobin (Bld) [Mass/Vol] 12.6 g/dL 11.9 - 15.1 g/dL [place] Interpretation and review of laboratory results Abnormal [place] MCH (RBC) [Entitic mass] 26.1 pg 25.2 - 33.5 pg [place] MCHC (RBC) [Mass/Vol] 31.2 g/dL 28.4 - 34.8 g/dL [place] MCV (RBC) [Entitic vol] 83.8 fL 82.6 - 102.9 fL [place] Platelet mean volume (Bld) [Entitic vol] 8.7 fL 8.1 - 13.5 fL [place] Platelets (Bld) [#/Vol] 289 10*3/uL [place] RBC (Bld) [#/Vol] 4.82 10*6/uL 3.95 - 5.1 1 m/uL [place] WBC (Bld) [#/Vol] 0.0 10*3/uL 0.0 per 10 0 WBC [place] WBC (Bld) [#/Vol] 13.7 10*3/uL [place] ESOPHAGRAMon 05-07-2020 [place] ESOPHAGRAM EXAMINATION: [...] Petr Cullen MD 05/07/20 Final result Normal [facility] EXAMINATION: SINGLE CONTRAST ESOPHAGRAM 05/07/2020 [...] sleeve. No obstruction. No extravasation of contrast. [place], [place] Julius, Mhpn Incoming Radiant Results From [employer] - 05/07/2020 10:04 AM EST EXAMINATION: SINGLE [...] of contrast. IMPRESSION: No extravasation of contrast. [place] No extravasation of contrast. [place] POCT urine pregnancyon 05-07 Beta HCG ( test) Ql (U) Negative NEGATIVE [place] Comment on above: Specimens with hCG [...] [Moles/Vol] 10 mmol/L 9 - 17 mmol/L [place] Bun/Cre Ratio NOT REPORTED [place] Calcium [Mass/Vol] 9.5 mg/dL 8.6 - 10. 4 mg/dL [place] Chloride [Moles/Vol] 103 mmol/L 98 - 10 7 mmol/L [place] CO2 [Moles/Vol] 19 mmol/L Low 20 - 31 mmol/L [place] Creatinine [Mass/Vol] 0.9 mg/dL 0.5 - 0.9 mg/dL [place] GFR >60 >60 mL/min [place] GFR Non- >60 >60 mL/min [place] GFR/1.73 sq M predicted among non-blacks MDRD (S/P/Bld) [Vol rate/Area] NOT REPORTED [place] GFR/1.73 sq M predicted among non-blacks MDRD (S/P/Bld) [Vol rate/Area] [place] Comment on above: Average GFR for 20-2 9 years old: 116 mL/min/1.73sq m Chronic Kidney Disease: <60 mL/min/1.73sq m Kidney failure: <15 mL/min/1.73sq m eGFR calculated using average adult body mass. Additional eGFR calculator available at: http://www.iAcademic/multiple_crcl_2012.htm Glucose [Mass/Vol] 162 mg/dL High 70 - 99 mg/dL [place] Interpretation and review of laboratory results Abnormal [place] Potassium [Moles/Vol] 3.9 mmol/L 3.7 - 5.3 mmol/L [place] Sodium [Moles/Vol] 132 mmol/L Low 135 - 144 mmol/L [place] Urea nitrogen [Mass/Vol] 10 mg/dL 6 - 20 mg/dL [place] Basic Metabolic Profon 05-06 (cont.) Normal [facility] Comment on above: Result Comment: Aver age GFR for 20-29 years old: 116 mL/min/1.73sq m Chronic Kidney Disease: <60 mL/min/1.73sq m Kidney failure: <15 mL/min/1.73sq m eGFR calculated using average adult body mass. Additional eGFR calculator available at: http://www.iAcademic/multiple_crcl_2012.htm Performed By: #### Rudi BLANK BMP #### [facility] [address] [place] [address] Fabric Sourcer: Casey Marques MD Anion gap [Moles/Vol] 10 mmol/L Normal 9-17 [facility] Comment on above: Performed By: ###Hina BLANK BMP #### [facility] [address] [place] [address] Fabric Sourcer: Casey Marques MD Calcium [Mass/Vol] 9.5 mg/dL Normal 8.6-10.4 [facility] Comment on above: Performed By: #### TERRANCE FLORES #### [facility] [address] [place] [address] Fabric Sourcer: Casey Marques MD Chloride [Moles/Vol] 103 mmol/L Normal 98-107 [facility] Comment on above: Performed By: #### C BC, BMP #### [facility] [address] [place] [address] Fabric Sourcer: Casey Marques MD CO2 [Moles/Vol] 19 mmol/L Low 20-31 [facility] Comment on above: Performed By: #### C BC, BMP #### [address] [address] Fabric Sourcer: Casey Marques MD Creatinine [Mass/Vol] 0.90 mg/dL Normal 0.50-0.90 [facility] Comment on above: Performed By: #### C BC, BMP #### [address] [address] Fabric Sourcer: Casey Marques MD GFR, Amer >60 Normal >60 [facility] Comment on above: Performed By: #### C BC, BMP #### [facility] [address] [place] [address] Fabric Sourcer: Casey Marques MD GFR,non Amer >60 Normal >60 [facility] Comment on above: Performed By: #### C BC, BMP #### [facility] [address] [place] [address] Fabric Sourcer: Casey Marques MD Glucose [Mass/Vol] 162 mg/dL High 70-99 [facility] Comment on above: Performed By: #### C BC, BMP #### [facility] [address] [place] [address] Fabric Sourcer: Casey Marques MD Potassium [Moles/Vol] 3.9 mmol/L Normal 3.7-5.3 [facility] Comment on above: Performed By: #### C BC, BMP #### [facility] [address] [place] [address] Fabric Sourcer: Casey Marques MD Sodium [Moles/Vol] 132 mmol/L Low 135-144 [facility] Comment on above: Performed By: #### C BC, BMP #### [facility] [address] [place] [address] Fabric Sourcer: Casey Marques MD Urea nitrogen [Mass/Vol] 10 mg/dL Normal -20 [facility] Comment on above: Performed By: #### C BC, BMP #### [facility] [address] [place] [address] Fabric Sourcer: Casey Marques MD BUN/CRE Ratio NOT REPORTED Normal - [facility] Comment on above: Performed By: #### C BC, BMP #### [facility] [address] [place] [address] Fabric Sourcer: Casey Marques MD Staging: NOT REPORTED Normal [facility] Comment on above: Performed By: #### C BC, BMP #### [facility] [address] [place] [address] Fabric Sourcer: Casey Marques MD CBCon 05-06-2020 Erythrocyte distribution width (RBC) [Ratio] 14.6 % High 11.8-14.4 [facility] Comment on above: Performed By: #### C BC, BMP #### [facility] [address] [place] [address] Fabric Sourcer: Casey Marques MD Hematocrit (Bld) [Volume fraction] 42.5 % Normal 36.3-47.1 [facility] Comment on above: Performed By: #### C BC, BMP #### [facility] [address] [place] [address] Fabric Sourcer: Casey Marques MD Hemoglobin (Bld) [Mass/Vol] 12.8 g/dL Normal 11.9-15.1 [facility] Comment on above: Performed By: #### C BC, BMP #### [address] [address] Fabric Sourcer: Casey Marques MD MCH (RBC) [Entitic mass] 26.9 pg Normal 25.2-33.5 [facility] Comment on above: Performed By: #### C ABHAY, BMP #### [address] [address] Fabric Sourcer: Casey Marques MD MCHC (RBC) [Mass/Vol] 30.1 g/dL Normal 28.4-34.8 [facility] Comment on above: Performed By: #### C ABHAY, BMP #### [address] [address] Fabric Sourcer: Casey Marques MD MCV (RBC) [Entitic vol] 89.3 fL Normal 82.6-102.9 [facility] Comment on above: Performed By: #### C BC, BMP #### [address] [address] Fabric Sourcer: Casey Marques MD NRBC Automated 0.0 per 100 WBC Normal 0.0 [facility] Comment on above: Performed By: #### C BC, BMP #### [address] [address] Fabric Sourcer: Casey Marques MD Platelet mean volume (Bld) [Entitic vol] 8.4 fL Normal 8.1-13.5 [facility] Comment on above: Performed By: #### C BC, BMP #### [address] [address] Fabric Sourcer: Casey Marques MD Platelets (Bld) [#/Vol] 300 10*3/uL Normal 138-453 [facility] Comment on above: Performed By: #### C BC, BMP #### [facility] [address] [place], [place] [phone] Fabric Sourcer: Casey Marques MD RBC (Bld) [#/Vol] 4.76 10*6/uL Normal 3.95-5.11 [facility] Comment on above: Performed By: #### C BC, BMP #### [facility] [address] [place] [address] Fabric Sourcer: Casey Marques MD WBC (Bld) [#/Vol] 14.3 10*3/uL High 3.5-11.3 [facility] Comment on above: Performed By: #### C BC, BMP #### [facility] [place], [place] [phone] Fabric Sourcer: Casey Marques MD CBC without Diffon Erythrocyte distribution width (RBC) [Ratio] 14.6 % High 11.8 - 14.4 % [place] Hematocrit (Bld) [Volume fraction] 42.5 % 36.3 - 47.1 % [place] Hemoglobin (Bld) [Mass/Vol] 12.8 g/dL 11.9 - 15.1 g/dL [place] Interpretation and review of laboratory results Abnormal [place] MCH (RBC) [Entitic mass] 26.9 pg 25.2 - 33.5 pg [place] MCHC (RBC) [Mass/Vol] 30.1 g/dL 28.4 - 34.8 g/dL [place] MCV (RBC) [Entitic vol] 89.3 fL 82.6 - 102.9 fL [place] Platelet mean volume (Bld) [Entitic vol] 8.4 fL 8.1 - 13.5 fL [place] Platelets (Bld) [#/Vol] 300 10*3/uL [place] RBC (Bld) [#/Vol] 4.76 10*6/uL 3.95 - 5.1 1 m/uL [place] WBC (Bld) [#/Vol] 14.3 10*3/uL [place] WBC (Bld) [#/Vol] 0.0 10*3/uL 0.0 per 10 0 WBC [place] Surgical Pathologyon 021 Surgical Pathology (NOTE) [...] with no areas of granularity or masses. [employer] sections 1cs. tm Microscopic Description Sections of gastric mucosa show increased lymphocytes and plasma cells in the lamina propria. There is no evidence of acute inflammation, intestinal metaplasia or dysplasia. There is no evidence of organisms suspicious for Helicobacter with the routine BRI stains. SURGICAL PATHOLOGY CONSULTATION Patient Name: JAZ SANDERS [facility] Rec: [id number] Path Number: [id number] [facility] [employer] [facility] ANATOMIC PATHOLOGY [address] [place] [phone] [facility] Comment on above: Performed By: #### C BC, PT, PTT, BMP #### [employer] [address] [place] [address] Fabric Sourcer: Casey Marques MD #### ANICOT #### [facility] [address] [place] [address] Fabric Sourcer: Adolph Diaz MD [id number] 05-04-2020 SARS-CoV-2 [facility] Comment on above: Performed By: #### C OVID #### [address] [id number] Fabric Sourcer: Casey Marques MD SARS-CoV-2 Not Detected [facility] Comment on above: Result Comment: The specimen is NEGATIVE for SARS-CoV-2, the novel coronavirus associated with COVID-19. A negative result does not rule out COVID-19. Bernard SARS-CoV-2 for use on the Bernard [employer] is a real-time RT-PCR test intended [...] this assay. Fact sheet for Healthcare Providers: https://www.fda.gov/media/030424/download Fact sheet for Patients: https://www.fda.gov/media/616257/download METHODOLOGY: RT-PCR Performed By: #### C OVID #### [address] [id number] Fabric Sourcer: Casey Marques MD SARS-CoV-2,[facility] Comment on above: Performed By: #### C OVID #### [address] [id number] Fabric Sourcer: MD FORD CapellanCoV-2on 05-03-2020 SARS-CoV-2 Source .NASOPHARYNGEAL SWAB [facility] Comment on above: Performed By: #### C OVID #### [address] [id number] Fabric Sourcer: Casey Marques MD Nicotineon 04-26-2020 5-OD-[id number] <2 Normal [facility] Comment on above: Performed By: #### C BC, PT, PTT, BMP #### [facility] [address] [place] [address] [phone] Fabric Sourcer: Casey Marques MD #### ANICOT #### [facility] [address] [place] [address] [phone] Fabric Sourcer: Adolph Diaz MD Cotinine <2 Normal [facility] Comment on above: Performed By: #### C BC, PT, PTT, BMP #### [facility] [address] [place] [address] [phone] Fabric Sourcer: Casey Marques MD #### ANICOT #### [employer] [address] [phone] Fabric Sourcer: Adolph Diaz MD Nicotine <2 Normal [facility] Comment on above: Result Comment: [...] positive. Test developed and characteristics determined by [employer]. See Compliance Statement B: [employer] Performed By: [employer] [address] [place] [address] Health Information Director: Lynn Layne MD Performed By: #### C BC, PT, PTT, BMP #### [employer] [facility] [address] [place] [address] Fabric Sourcer: Casey Marques MD #### ANICOT #### [employer] [address] [place] [address] Fabric Sourcer: Adolph Diaz MD Nicotine, Bloodon 04-26-2020 1-IB-Mtiaefxn <2 ng/mL [facility] [place], [place] Cotinine <2 ng/mL [facility], [place] Nicotine <2 ng/mL [facility], [place] Comment on above: (NOTE) Consistent with abstinence [...] positive. Test developed and characteristics determined by [employer]. See Compliance Statement B: [employer] Performed By: [employer] [address] [place] [address] Health Information Director: Lynn Layne MD EKG 12 Leadon 04-23-2020 Atrial Rate 95 BPM [facility], [place] P [place] 14 degrees [facility] [place], [place] P-R Interval 134 ms [facility] [place], [place] Q-T Interval 398 ms [facility], [place] QRS Duration 94 ms [facility] [place] QTc Calculation (Bazett) 500 ms [facility] [place] R [place] 15 degrees [facility] [place], [place] T [place] 32 degrees [facility] [place] Ventricular Rate 95 BPM [facility], [place] Normal sinus rhythm with sinus arrhythmia Prolonged QT Abnormal ECG No previous ECGs available [place], [place] Julius, Mhpn Incoming E kg Results From [employer] - 04/23/2020 12:32 PM EST Normal sinus rhythm with sinus arrhythmia Prolonged QT Abnormal ECG No previous ECGs available [place] APTTon 04-22-2020 aPTT Coag (Bld) [Time] 22.2 s Normal 20.5-30.[address] [facility] Comment on above: Result Comment: IV Heparin Therapy Range: 48.6-77.8 Performed By: #### C BC, PT, PTT, BMP #### [employer] [address] [place] [address] Fabric Sourcer: Casey Marques MD #### ANICOT #### [facility] [address] [place] [address] Fabric Sourcer: Adolph Diaz MD aPTT Coag (Bld) [Time] 22.2 s [place], [place] Comment on above: IV Heparin Therapy Range: 48.6-77.8 Basic Metabolic Panel Anion gap [Moles/Vol] 12 mmol/L 9 - 17 mmol/L [place] Bun/Cre Ratio NOT REPORTED [place] Calcium [Mass/Vol] 9.2 mg/dL 8.6 - 10. 4 mg/dL [place] Chloride [Moles/Vol] 104 mmol/L 98 - 10 7 mmol/L [place] CO2 [Moles/Vol] 23 mmol/L 20 - 31 mmol/L [place] Creatinine [Mass/Vol] 0.69 mg/dL 0.5 - 0.9 mg/dL [place] GFR >60 >60 mL/min [place] GFR Non- >60 >60 mL/min [place] GFR/1.73 sq M predicted among non-blacks MDRD (S/P/Bld) [Vol rate/Area] NOT REPORTED [place] GFR/1.73 sq M predicted among non-blacks MDRD (S/P/Bld) [Vol rate/Area] [place] Comment on above: Average GFR for 20-2 9 years old: 116 mL/min/1.73sq m Chronic Kidney Disease: <60 mL/min/1.73sq m Kidney failure: <15 mL/min/1.73sq m eGFR calculated using average adult body mass. Additional eGFR calculator available at: http://www.iAcademic/multiple_crcl_2012.htm Glucose [Mass/Vol] 123 mg/dL High 70 - 99 mg/dL [place] Interpretation and review of laboratory results Abnormal [place] Potassium [Moles/Vol] 4.1 mmol/L 3.7 - 5.3 mmol/L [place] Sodium [Moles/Vol] 139 mmol/L 135 - 144 mmol/L [place] Urea nitrogen [Mass/Vol] 7 mg/dL 6 - 20 mg/dL [place] Basic Metabolic Profon 04-22 (cont.) Normal [facility] Comment on above: Result Comment: Aver age GFR for 20-29 years old: 116 mL/min/1.73sq m Chronic Kidney Disease: <60 mL/min/1.73sq m Kidney failure: <15 mL/min/1.73sq m eGFR calculated using average adult body mass. Additional eGFR calculator available at: http://www.iAcademic/multiple_crcl_2012.htm Performed By: #### C BC, PT, PTT, BMP #### [employer] [address] [place] [address] Fabric Sourcer: Casey Marques MD #### ANJOLANTA #### [facility] [address] [place] [address] Fabric Sourcer: Adolph Diaz MD Anion gap [Moles/Vol] 12 mmol/L Normal 9-17 [facility] Comment on above: Performed By: #### C BC, PT, PTT, BMP #### [employer] [facility] [place], [place] [phone] Fabric Sourcer: Casey Marques MD #### ANICOT #### [facility] [address] [place], [place] [phone] Fabric Sourcer: Adolph Diaz MD Calcium [Mass/Vol] 9.2 mg/dL Normal 8.6-10.4 [facility] Comment on above: Performed By: #### C BC, PT, PTT, BMP #### [address] [address] Fabric Sourcer: Casey Marques MD #### ANICOT #### [facility] [address] [place] [address] Fabric Sourcer: Adolph Diaz MD Chloride [Moles/Vol] 104 mmol/L Normal 98-107 [facility] Comment on above: Performed By: #### C BC, PT, PTT, BMP #### [address] [address] Fabric Sourcer: Casey Marques MD #### ANICOT #### [facility] [address] [place] [address] Fabric Sourcer: Adolph Diaz MD CO2 [Moles/Vol] 23 mmol/L Normal 20-31 [facility] Comment on above: Performed By: #### C BC, PT, PTT, BMP #### [address] [address] Fabric Sourcer: Casey Marques MD #### ANICOT #### [facility] [address] [place] [address] Fabric Sourcer: Adolph Diaz MD Creatinine [Mass/Vol] 0.69 mg/dL Normal 0.50-0.90 [facility] Comment on above: Performed By: #### C BC, PT, PTT, BMP #### [address] [address] Fabric Sourcer: Casey Marques MD #### ANICOT #### [facility] [address] [place], [place] [id number] Fabric Sourcer: Adolph Diaz MD GFR, Amer >60 Normal >60 [facility] Comment on above: Performed By: #### C BC, PT, PTT, BMP #### [address] [address] Fabric Sourcer: Casey Marques MD #### ANICOT #### [facility] [address] [place] [address] Fabric Sourcer: Adolph Diaz MD GFR,non Amer >60 Normal >60 [facility] Comment on above: Performed By: #### C BC, PT, PTT, BMP #### [address] [id number] Fabric Sourcer: Casey Marques MD #### ANICOT #### [facility] [address] [place] [address] Fabric Sourcer: Adolph Diaz MD Glucose [Mass/Vol] 123 mg/dL High 70-99 [facility] Comment on above: Performed By: #### C BC, PT, PTT, BMP #### [address] [address] Fabric Sourcer: Casey Marques MD #### ANICOT #### [facility] [address] [place] [address] Fabric Sourcer: Adolph Diaz MD Potassium [Moles/Vol] 4.1 mmol/L Normal 3.7-5.3 [facility] Comment on above: Performed By: #### C BC, PT, PTT, BMP #### [address] [address] Fabric Sourcer: Casey Marques MD #### ANICOT #### [facility] [address] [place] [address] Fabric Sourcer: Adolph Diaz MD Sodium [Moles/Vol] 139 mmol/L Normal 135-144 [facility] Comment on above: Performed By: #### C BC, PT, PTT, BMP #### [address] [address] Fabric Sourcer: Casey Marques MD #### ANICOT #### [facility] [address] [place] [address] Fabric Sourcer: Adolph Diaz MD Urea nitrogen [Mass/Vol] 7 mg/dL Normal 6-20 [facility] Comment on above: Performed By: #### C BC, PT, PTT, BMP #### [address] [address] Fabric Sourcer: Casey Marques MD #### ANICOT #### [facility] [address] [place] [address] Fabric Sourcer: Adolph Diaz MD BUN/CRE Ratio NOT REPORTED Normal 9-20 [facility] Comment on above: Performed By: #### C BC, PT, PTT, BMP #### [address] [address] Fabric Sourcer: Casey Marques MD #### ANICOT #### [facility] [address] [place] [address] Fabric Sourcer: Adolph Diaz MD Staging: NOT REPORTED Normal [facility] Comment on above: Performed By: #### C BC, PT, PTT, BMP #### [facility] [address] [place] [address] Fabric Sourcer: Casey Marques MD #### ANICOT #### [facility] [address] [place] [address] Fabric Sourcer: Adolph Diaz MD CBCon 04-22-2020 Erythrocyte distribution width (RBC) [Ratio] 14.6 % High 11.8-14.4 [facility] Comment on above: Performed By: #### C BC, PT, PTT, BMP #### [address] [address] Fabric Sourcer: Casey Marques MD #### ANICOT #### [address] [id number] Fabric Sourcer: Adolph Diaz MD Hematocrit (Bld) [Volume fraction] 40.8 % Normal 36.3-47.1 [facility] Comment on above: Performed By: #### C BC, PT, PTT, BMP #### [address] [address] Fabric Sourcer: Casey Marques MD #### ANICOT #### [address] [phone] Fabric Sourcer: Adolph Diaz MD Hemoglobin (Bld) [Mass/Vol] 12.8 g/dL Normal 11.9-15.1 [facility] Comment on above: Performed By: #### C BC, PT, PTT, BMP #### [address] [phone] Fabric Sourcer: Casey Marques MD #### ANICOT #### [address] [address] Fabric Sourcer: Adolph Diaz MD MCH (RBC) [Entitic mass] 26.5 pg Normal 25.2-33.5 [facility] Comment on above: Performed By: #### C BC, PT, PTT, BMP #### [address] [id number] Fabric Sourcer: Casey Marques MD #### ANICOT #### [address] [address] Fabric Sourcer: Adolph Diaz MD MCHC (RBC) [Mass/Vol] 31.4 g/dL Normal 28.4-34.8 [facility] Comment on above: Performed By: #### C BC, PT, PTT, BMP #### [address] [phone] Fabric Sourcer: Casey Marques MD #### ANICOT #### [facility] [address] [place], [place] [phone] Fabric Sourcer: Adolph Diaz MD MCV (RBC) [Entitic vol] 84.5 fL Normal 82.6-102.9 [facility] Comment on above: Performed By: #### C BC, PT, PTT, BMP #### [address] [phone] Fabric Sourcer: Casey Marques MD #### ANICOT #### [address] [phone] Fabric Sourcer: Adolph Diaz MD NRBC Automated 0.0 per 100 WBC Normal 0.0 [facility] Comment on above: Performed By: #### C BC, PT, PTT, BMP #### [address] [phone] Fabric Sourcer: Casey Marques MD #### ANICOT #### [address] [phone] Fabric Sourcer: Adolph Diaz MD Platelet mean volume (Bld) [Entitic vol] 8.7 fL Normal 8.1-13.5 [facility] Comment on above: Performed By: #### C BC, PT, PTT, BMP #### [address] [phone] Fabric Sourcer: Casey Marques MD #### ANICOT #### [address] [address] Fabric Sourcer: Adolph Diaz MD Platelets (Bld) [#/Vol] 298 10*3/uL Normal 138-453 [facility] Comment on above: Performed By: #### C BC, PT, PTT, BMP #### [address] [address] Fabric Sourcer: Casey Marques MD #### ANICOT #### [facility] [address] [place] [address] Fabric Sourcer: Adolph Diaz MD RBC (Bld) [#/Vol] 4.83 10*6/uL Normal 3.95-5.11 [facility] Comment on above: Performed By: #### C BC, PT, PTT, BMP #### [address] [id number] Fabric Sourcer: Casey Marques MD #### ANICOT #### [facility] [address] [place] [address] Fabric Sourcer: Adolph Diaz MD WBC (Bld) [#/Vol] 10.8 10*3/uL Normal 3.5-11.3 [facility] Comment on above: Performed By: #### C BC, PT, PTT, BMP #### [address] [address] Fabric Sourcer: Casey Marques MD #### ANICOT #### [facility] [address] [place] [address] Fabric Sourcer: Adolph Diaz MD Erythrocyte distribution width (RBC) [Ratio] 14.6 % High 11.8 - 14.4 % [place] Hematocrit (Bld) [Volume fraction] 40.8 % 36.3 - 47.1 % [place] Hemoglobin (Bld) [Mass/Vol] 12.8 g/dL 11.9 - 15.1 g/dL [place] Interpretation and review of laboratory results Abnormal [place] MCH (RBC) [Entitic mass] 26.5 pg 25.2 - 33.5 pg [place] MCHC (RBC) [Mass/Vol] 31.4 g/dL 28.4 - 34.8 g/dL [place] MCV (RBC) [Entitic vol] 84.5 fL 82.6 - 102.9 fL [place] Platelet mean volume (Bld) [Entitic vol] 8.7 fL 8.1 - 13.5 fL [place] Platelets (Bld) [#/Vol] 298 10*3/uL [place] RBC (Bld) [#/Vol] 4.83 10*6/uL 3.95 - 5.1 1 m/uL [place] WBC (Bld) [#/Vol] 10.8 10*3/uL [place] WBC (Bld) [#/Vol] 0.0 10*3/uL 0.0 per 10 0 WBC [place] Otheron 04-22-2020 No acute cardiopulmonary findings [place] EXAMINATION: TWO XRA Y VIEWS OF THE CHEST 04/22/2020 2:46 pm COMPARISON: Baseline examination HISTORY: ORDERING SYSTEM PROVIDED HISTORY: preop gastric bypass [employer] TECHNOLOGIST PROVIDED HISTORY: preop gastric bypass Ben En Y Reason for Exam: preop gastric bypass FINDINGS: Normal cardiopericardial silhouette There are no significant pleural, parenchymal, mediastinal or osseous findings [place] Julius, Mhpn Incoming Radiant Results From [employer] - 04/22/2020 3:28 PM EST EXAMINATION: TWO XRAY VIEWS OF THE CHEST 04/22/2020 2:46 pm COMPARISON: Baseline examination HISTORY: ORDERING SYSTEM PROVIDED HISTORY: preop gastric bypass Ben [employer] TECHNOLOGIST PROVIDED HISTORY: preop gastric bypass Ben En Y Reason for Exam: preop gastric bypass FINDINGS: Normal cardiopericardial silhouette There are no significant pleural, parenchymal, mediastinal or osseous findings IMPRESSION: No acute cardiopulmonary findings [place] PTon 04-22-2020 INR Coag (PPP) [Relative time] 0.9 {INR} Normal [facility] Comment on above: Result Comment: Therapeutic Range: Moderate Anticoagulant Intensity: INR = 2.0-3.0 High Anticoagulant Intensity: INR = 2.5-3.5 Performed By: #### C BC, PT, PTT, BMP #### [address] [id number] Fabric Sourcer: Casey Marques MD #### ANICOT #### [facility] [address] [place] [address] Fabric Sourcer: Adolph Diaz MD PT Coag (PPP) [Time] 9.3 s Normal 9.0-12.0 [facility] Comment on above: Performed By: #### C BC, PT, PTT, BMP #### [address] [phone] Fabric Sourcer: Casey Marques MD #### ANICOT #### [facility] [address] [place], [place] [id number] Fabric Sourcer: Adolph Diaz MD [facility] 04-22-2020 INR Coag (PPP) [Relative time] 0.9 {INR} [place], [place] Comment on above: Therapeutic Range: Moderate Anticoagulant Intensity: INR = 2.0-3.0 High Anticoagulant Intensity: INR = 2.5-3.5 PT Coag (PPP) [Time] 9.3 s [place], [place] XR CHEST (2 VW)on 04-22-2020 XR [...] Roxanne Avitia MD 04/22/20 Final result Normal [facility] Vital Signs Date Time Vital Sign Value Performing Clinician Sonal lerma 01-16-2025 11:34-0400 Body mass index (BMI) [Ratio] 38.49 kg/m2 Viry Duenas VIDEO SYSTEM REPAIRER Work Phone: [facility] 01-16-2025 11:34-0400 Body weight 125.19 kg Viry Duenas VIDEO SYSTEM REPAIRER Work Phone: [facility] 01-16-2025 11:34-0400 Diastolic blood pressure 80 mm[Hg] Viry Duenas VIDEO SYSTEM REPAIRER Work Phone: [facility] 01-16-2025 11:34-0400 Systolic blood pressure 122 mm[Hg] Viry Duenas VIDEO SYSTEM REPAIRER Work Phone: [facility] 12-19-2024 10:01-0400 Body mass index (BMI) [Ratio] 36.79 kg/m2 Jojo Ames PA Work Phone: [facility] 12-19-2024 10:01-0400 Body weight 119.66 kg Jojo Kwaku PA Work Phone: [facility] 12-19-2024 10:01-0400 Diastolic blood pressure 60 mm[Hg] Jojo Frazee PA Work Phone: [facility] 12-19-2024 10:01-0400 Systolic blood pressure 118 mm[Hg] Jojo Frazee PA Work Phone: [facility] 12-05-2024 12:46-0400 Body height 180.3 cm Latricia Lindquist MD Work Phone: [facility] 12-05-2024 12:46-0400 Body mass index (BMI) [Ratio] 35.84 kg/m2 Latricia Lindquist MD Work Phone: [facility] 12-05-2024 12:46-0400 Body weight 116.57 kg Latricia Lindquist MD Work Phone: [facility] 12-05-2024 12:46-0400 Diastolic blood pressure 62 mm[Hg] Latricia Lindquist MD Work Phone: [facility] 12-05-2024 12:46-0400 Heart rate 73 /min Latricia Lindquist MD Work Phone: [facility] 12-05-2024 12:46-0400 Systolic blood pressure 95 mm[Hg] Latricia Lindquist MD Work Phone: [facility] 12-02-2024 23:35-0400 Body height 180.34 cm Amanda Ford PICTURE HANGER Work Phone: [facility] 12-02-2024 23:35-0400 Body temperature 97.2 [degF] Amanda Logan PICTURE HANGER Work Phone: [facility] 12-02-2024 23:35-0400 Body weight 115.66 kg Amanda Logan PICTURE HANGER Work Phone: [facility] 12-02-2024 23:35-0400 Diastolic blood pressure 56 mm[Hg] Amandahina Ford PICTURE HANGER Work Phone: [facility] 12-02-2024 23:35-0400 Heart rate 75 /min Amanda Logan PICTURE HANGER Work Phone: [facility] 12-02-2024 23:35-0400 Respiratory rate 16 /min Amanda Logan PICTURE HANGER Work Phone: [facility] 12-02-2024 23:35-0400 SaO2% (BldA) [Mass fraction] 97 % Amanda Ford PICTURE HANGER Work Phone: [facility] 12-02-2024 23:35-0400 Systolic blood pressure 119 mm[Hg] Amanda Ford PICTURE HANGER Work Phone: [facility] 11-20-2024 10:37-0400 Body weight 116.1216 kg Amanda Logan HAMILTONN Work Phone: [facility] 11-20-2024 09:10-0400 Body mass index (BMI) [Ratio] 35.7 kg/m2 Les Juan DO Work Phone: [facility] 11-20-2024 09:10-0400 Body weight 116.12 kg Les Juan DO Work Phone: [facility] 11-20-2024 09:10-0400 Diastolic blood pressure 64 mm[Hg] Les Juan DO Work Phone: [facility] 11-20-2024 09:10-0400 Systolic blood pressure 114 mm[Hg] Les Juan DO Work Phone: [facility] 10-22-2024 11:28-0400 Body mass index (BMI) [Ratio] 31.24 kg/m2 Les Juan DO Work Phone: [facility] 10-22-2024 11:28-0400 Body weight 101.61 kg Les Juan DO Work Phone: [facility] 10-22-2024 11:28-0400 Diastolic blood pressure 62 mm[Hg] Les Juan DO Work Phone: [facility] 10-22-2024 11:28-0400 Systolic blood pressure 110 mm[Hg] Les Juan DO Work Phone: [facility] 10-18-2024 13:34-0400 Diastolic blood pressure 71 mm[Hg] Amanda Ford PICTURE HANGER Work Phone: [facility] 10-18-2024 13:34-0400 Heart rate 60 /min Amanda Ford PICTURE HANGER Work Phone: [facility] 10-18-2024 13:34-0400 Respiratory rate 18 /min Amanda Ford PICTURE HANGER Work Phone: [facility] 10-18-2024 13:34-0400 SaO2% (BldA) [Mass fraction] 99 % Amanda Ford PICTURE HANGER Work Phone: [facility] 10-18-2024 13:34-0400 Systolic blood pressure 112 mm[Hg] Amanda Ford PICTURE HANGER Work Phone: [facility] 10-18-2024 10:38-0400 Body height 180.34 cm Amanda Ford PICTURE HANGER Work Phone: [facility] 10-18-2024 10:38-0400 Body temperature 98.1 [degF] Amanda Ford PICTURE HANGER Work Phone: [facility] 10-18-2024 10:38-0400 Body weight 106.85 kg Amanda Ford PICTURE HANGER Work Phone: [facility] 09-20-2024 15:06-0400 Body mass index (BMI) [Ratio] 31.24 kg/m2 [facility] Nurse [facility] 09-20-2024 15:06-0400 Body weight 101.61 kg [facility] Nurse [facility] 09-20-2024 15:06-0400 Diastolic blood pressure 74 mm[Hg] [facility] Nurse [facility] 09-20-2024 15:06-0400 Systolic blood pressure 122 mm[Hg] [facility] Nurse [facility] 08-22-2024 10:04-0400 Body height 180.3 cm Darleen Sinclair MD Work Phone: [facility] 08-22-2024 10:04-0400 Body mass index (BMI) [Ratio] 29.99 kg/m2 Darleen Sinclair MD Work Phone: [facility] 08-22-2024 10:04-0400 Body weight 97.52 kg Darleen Sinclair MD Work Phone: [facility] 08-22-2024 10:04-0400 Diastolic blood pressure 56 mm[Hg] Darleen Sinclair MD Work Phone: [facility] 08-22-2024 10:04-0400 Heart rate 67 /min Darleen Sinclair MD Work Phone: [facility] 08-22-2024 10:04-0400 Respiratory rate 16 /min Darleen Sinclair MD Work Phone: [facility] 08-22-2024 10:04-0400 SaO2% (BldA) [Mass fraction] 99 % Darleen Sinclair MD Work Phone: [facility] 08-22-2024 10:04-0400 Systolic blood pressure 124 mm[Hg] Darleen Sinclair MD Work Phone: [facility] 04-26-2024 08:32-0500 Body height 180.34 cm [facility] 04-26-2024 08:32-0500 Body mass index (BMI) [Ratio] 30.4 kg/m2 [facility] 04-26-2024 08:32-0500 Body temperature 97.3 [degF] [facility] 04-26-2024 08:32-0500 Body weight 98.99 kg [facility] 04-26-2024 08:32-0500 Diastolic blood pressure 60 mm[Hg] [facility] 04-26-2024 08:32-0500 Heart rate 73 /min [facility] 04-26-2024 08:32-0500 SaO2% (BldA) [Mass fraction] 98 % [facility] 04-26-2024 08:32-0500 Systolic blood pressure 112 mm[Hg] [facility] 02-28-2024 14:03-0500 Body height 180.3 cm Ignacio Guy MD Work Phone: [facility] 02-28-2024 14:03-0500 Body mass index (BMI) [Ratio] 30.23 kg/m2 Ignacio Guy MD Work Phone: [facility] 02-28-2024 14:03-0500 Body weight 98.3 kg Ignacio Guy MD Work Phone: [facility] 02-20-2024 15:12-0500 Body mass index (BMI) [Ratio] 31.71 kg/m2 Les Martinez DO Work Phone: [facility] 02-20-2024 15:12-0500 Body weight 100.25 kg Les Juan DO Work Phone: [facility] 02-20-2024 15:12-0500 Diastolic blood pressure 68 mm[Hg] Les Juan DO Work Phone: [facility] 02-20-2024 15:12-0500 Systolic blood pressure 118 mm[Hg] Les Juan DO Work Phone: [facility] 12-07-2023 11:46-0400 Diastolic blood pressure 67 mm[Hg] PICTURE HANGERTanja Ford Work Phone: [facility] 12-07-2023 11:46-0400 Heart rate 76 /min PICTURE HANGERTanja Ford Work Phone: [facility] 12-07-2023 11:46-0400 Respiratory rate 16 /min PICTURE HANGERTanja Ford Work Phone: [facility] 12-07-2023 11:46-0400 SaO2% (BldA) [Mass fraction] 99 % PICTURE HANGERTanja Ford Work Phone: [facility] 12-07-2023 11:46-0400 Systolic blood pressure 149 mm[Hg] MELY Ford Work Phone: [facility] 12-07-2023 10:20-0400 Body temperature 98 [degF] PICTURE HANGERTanja Ford Work Phone: [facility] 12-07-2023 09:55-0400 Inhaled oxygen flow rate 3 L/min PICTURE HANGERTanja Ford Work Phone: [facility] 12-07-2023 06:29-0400 Body height 180.34 cm MELY Ford Work Phone: [facility] 12-07-2023 06:29-0400 Body weight 95.25 kg PICTURE HANGERTanja Ford Work Phone: [facility] 11-01-2023 11:56-0400 Body height 180.34 cm MELY Ford Work Phone: [facility] 11-01-2023 11:56-0400 Body mass index (BMI) [Ratio] 28.8 kg/m2 MELY Ford Work Phone: [facility] 11-01-2023 11:56-0400 Body weight 93.89 kg MELY Ford Work Phone: [facility] 06-08-2023 14:56-0500 Body height 180.34 cm [facility] 06-08-2023 14:56-0500 Body mass index (BMI) [Ratio] 29.4 kg/m2 [facility] 06-08-2023 14:56-0500 Body weight 95.7 kg [facility] 06-08-2023 14:56-0500 Diastolic blood pressure 68 mm[Hg] [facility] 06-08-2023 14:56-0500 Heart rate 51 /min [facility] 06-08-2023 14:56-0500 SaO2% (BldA) [Mass fraction] 98 % [facility] 06-08-2023 14:56-0500 Systolic blood pressure 122 mm[Hg] [facility] 05-17-2023 14:30-0500 Body height 180.34 cm Romeo Santana Other [facility] 05-17-2023 14:30-0500 Body mass index (BMI) [Ratio] 27.47 kg/m2 Romeo Santana Other [employer] [facility] [employer] Other 05-17-2023 14:30-0500 Body weight 89.36 kg Romeo Santana Other [employer] Other 05-17-2023 14:30-0500 Body weight 89.35 kg [facility] 02-07-2023 14:30-0400 Body height 180.34 cm Petr Lay Other [employer] Other 02-07-2023 14:30-0400 Body mass index (BMI) [Ratio] 27.61 kg/m2 Petr Lay Other [employer] Other 02-07-2023 14:30-0400 Body temperature 98.1 [degF] Petr Lay Other [employer] Other 02-07-2023 14:30-0400 Body weight 89.81 kg Petr Lay Other [employer] Other 02-07-2023 14:30-0400 Diastolic blood pressure 76 mm[Hg] Petr Lay Other [employer] Other 02-07-2023 14:30-0400 SaO2% (BldA) [Mass fraction] 99 % Petr Lay Other [employer] Other 02-07-2023 14:30-0400 Systolic blood pressure 128 mm[Hg] Petr Lay Other [employer] Other 12-27-2022 11:30-0400 Body height 180.34 cm Petr Lay Other [employer] Other 12-27-2022 11:30-0400 Body mass index (BMI) [Ratio] 28.03 kg/m2 Petr Lay Other [employer] Other 12-27-2022 11:30-0400 Body weight 91.17 kg Petr Lay Other [employer] Other 12-27-2022 11:30-0400 Diastolic blood pressure 64 mm[Hg] Petr Lay Other [employer] Other 12-27-2022 11:30-0400 Respiratory rate 18 /min Petr Alireza Other [employer] Other 12-27-2022 11:30-0400 SaO2% (BldA) [Mass fraction] 99 % Petr Alireza Other [employer] Other 12-27-2022 11:30-0400 Systolic blood pressure 128 mm[Hg] Petr Lay Other [employer] Other 10-11-2022 13:30-0400 Body height 180.34 cm Petr Lay Other [employer] Other 10-11-2022 13:30-0400 Body mass index (BMI) [Ratio] 28.78 kg/m2 Petr Lay Other [employer] Other 10-11-2022 13:30-0400 Body weight 93.62 kg Petr Lay Other [employer] Other 10-11-2022 13:30-0400 Diastolic blood pressure 78 mm[Hg] Petr Lay Other [employer] Other 10-11-2022 13:30-0400 Respiratory rate 18 /min Petr Lay Other [employer] Other 10-11-2022 13:30-0400 SaO2% (BldA) [Mass fraction] 98 % Petr Lay Other [employer] Other 10-11-2022 13:30-0400 Systolic blood pressure 122 mm[Hg] Petr Lay Other [employer] Other 09-30-2022 08:00-0400 Body height 180.34 cm Amanda Ford Other [employer] Other 09-30-2022 08:00-0400 Body mass index (BMI) [Ratio] 28.03 kg/m2 Amnada Ford Other [employer] Other 09-30-2022 08:00-0400 Body weight 91.17 kg Amanda Ford Other [employer] Other 09-30-2022 08:00-0400 Diastolic blood pressure 84 mm[Hg] Amanda Ford Other [employer] Other 09-30-2022 08:00-0400 SaO2% (BldA) [Mass fraction] 95 % Amanda Ford Other [employer] Other 09-30-2022 08:00-0400 Systolic blood pressure 126 mm[Hg] Amanda Ford Other [employer] Other 08-25-2022 15:30-0400 Body height 180.34 cm Amanda Ford Other [employer] Other 08-25-2022 15:30-0400 Body mass index (BMI) [Ratio] 29.15 kg/m2 Amanda Ford Other [employer] Other 08-25-2022 15:30-0400 Body weight 94.8 kg Amanda Ford Other [employer] Other 08-25-2022 15:30-0400 Diastolic blood pressure 77 mm[Hg] Amanda Hahnr Other [employer] Other 08-25-2022 15:30-0400 Systolic blood pressure 126 mm[Hg] Amanda Hahnnikkie Other [employer] Other 08-20-2022 11:00-0400 Body height 180.34 cm Amanda Shethsarahangelnikkie Other [employer] Other 08-20-2022 11:00-0400 Body mass index (BMI) [Ratio] 28.73 kg/m2 Amanda Shethsarahangelnikkie Other [employer] Other 08-20-2022 11:00-0400 Body weight 93.44 kg Amanda Ford Other [employer] Other 08-20-2022 11:00-0400 Diastolic blood pressure 72 mm[Hg] Amanda Logan Other [employer] Other 08-20-2022 11:00-0400 SaO2% (BldA) [Mass fraction] 100 % Amanda Logan Other [employer] Other 08-20-2022 11:00-0400 Systolic blood pressure 118 mm[Hg] Amanda Shethstefanyr Other [employer] Other 02-24-2023 16:43-0500 Body temperature 98.1 [degF] MD Robin Appiah Work Phone: [facility] 06-11-2022 16:43-0500 Diastolic blood pressure 56 mm[Hg] MD Robin Appiah Work Phone: [facility] 06-11-2022 16:43-0500 Heart rate 60 /min MD Robin Appiah Work Phone: [facility] 06-11-2022 16:43-0500 Respiratory rate 16 /min MD Robin Appiah Work Phone: [facility] 06-11-2022 16:43-0500 SaO2% (BldA) [Mass fraction] 100 % MD Robin Appiah Work Phone: [facility] 06-11-2022 16:43-0500 Systolic blood pressure 102 mm[Hg] MD Robin Appiah Work Phone: [facility] 06-11-2022 09:40-0500 Body height 180.34 cm MD Robin Appiah Work Phone: [facility] 06-11-2022 05:42-0500 Body weight 93 kg MD Robin Appiah Work Phone: [facility] 06-10-2022 17:55-0500 Body temperature 98.1 [degF] MD Robin Appiah Work Phone: [facility] 06-10-2022 17:55-0500 Diastolic blood pressure 56 mm[Hg] MD Robin Appiah Work Phone: [facility] 06-10-2022 17:55-0500 Heart rate 62 /min MD Robin Appiah Work Phone: [facility] 06-10-2022 17:55-0500 Respiratory rate 18 /min MD Robin Appiah Work Phone: [facility] 06-10-2022 17:55-0500 SaO2% (BldA) [Mass fraction] 100 % MD Robin Appiah Work Phone: [facility] 06-10-2022 17:55-0500 Systolic blood pressure 122 mm[Hg] MD Robin Appiah Work Phone: [facility] 06-10-2022 14:22-0500 Body height 180.34 cm MD Robin Appiah Work Phone: [facility] 06-10-2022 14:22-0500 Body weight 92.7 kg MD Robin Appiah Work Phone: [facility] 04-21-2022 15:00-0500 Body height 180.34 cm Amanda Ford Other [employer] Other 04-21-2022 15:00-0500 Body mass index (BMI) [Ratio] 27.81 kg/m2 Amanda Ford Other [employer] Other 04-21-2022 15:00-0500 Body temperature 98.2 [degF] Amanda Ford Other [employer] Other 04-21-2022 15:00-0500 Body weight 90.45 kg Amanda Ford Other [employer] Other 04-21-2022 15:00-0500 Diastolic blood pressure 68 mm[Hg] Amanda Ford Other [employer] Other 04-21-2022 15:00-0500 Respiratory rate 18 /min Amanda Ford Other [employer] Other 04-21-2022 15:00-0500 SaO2% (BldA) [Mass fraction] 99 % Amanda Ford Other [facility] [employer] Other 04-21-2022 15:00-0500 Systolic blood pressure 111 mm[Hg] Amanda Logan Other [facility] [employer] Other 04-10-2022 21:41-0500 Diastolic blood pressure 56 mm[Hg] MD Robin Appiah Work Phone: [facility] 04-10-2022 21:41-0500 Systolic blood pressure 112 mm[Hg] MD Robin Appiha Work Phone: [facility] 04-10-2022 18:14-0500 Body height 180.34 cm MD Robin Appiah Work Phone: [facility] 04-10-2022 18:14-0500 Body temperature 98.1 [degF] MD Robin Appiah Work Phone: [facility] 04-10-2022 18:14-0500 Body weight 88 kg MD Robin Appiah Work Phone: [facility] 04-10-2022 18:14-0500 Heart rate 119 /min MD Robin Appiah Work Phone: [facility] 04-10-2022 18:14-0500 Respiratory rate 18 /min MD Robin Appiah Work Phone: [facility] 04-10-2022 18:14-0500 SaO2% (BldA) [Mass fraction] 100 % MD Robin Appiah Work Phone: [facility] 04-08-2022 17:15-0500 Body temperature 97.5 [degF] MD Robin Appiah Work Phone: [facility] 04-08-2022 17:15-0500 Diastolic blood pressure 59 mm[Hg] MD Robin Appiah Work Phone: [facility] 04-08-2022 17:15-0500 Heart rate 59 /min MD Robin Appiah Work Phone: [facility] 04-08-2022 17:15-0500 Respiratory rate 18 /min MD Robin Appiah Work Phone: [facility] 04-08-2022 17:15-0500 SaO2% (BldA) [Mass fraction] 100 % MD Robin Appiah Work Phone: [facility] 04-08-2022 17:15-0500 Systolic blood pressure 128 mm[Hg] MD Robin Appiah Work Phone: [facility] 04-08-2022 14:33-0500 Body height 180.34 cm MD Robin Appiah Work Phone: [facility] 04-08-2022 14:33-0500 Body weight 88.1 kg MD Robin Appiah Work Phone: [facility] 03-23-2022 15:30-0500 Body height 180.34 cm Amanda Ford Other [employer] Other 03-23-2022 15:30-0500 Body mass index (BMI) [Ratio] 27.05 kg/m2 Amanda Ford Other [employer] Other 03-23-2022 15:30-0500 Body weight 88 kg Amanda Ford Other [employer] Other 03-23-2022 15:30-0500 Diastolic blood pressure 82 mm[Hg] Amanda Ford Other [employer] Other 03-23-2022 15:30-0500 SaO2% (BldA) [Mass fraction] 98 % Amanda Ford Other [employer] Other 03-23-2022 15:30-0500 Systolic blood pressure 137 mm[Hg] Amanda Logan Other [employer] Other 02-08-2022 10:00-0400 Body height 180.34 cm Amanda Logan Other [employer] Other 02-08-2022 10:00-0400 Body mass index (BMI) [Ratio] 27.47 kg/m2 Amanda Logan Other [employer] Other 02-08-2022 10:00-0400 Body weight 89.36 kg Amanda Logan Other [employer] Other 02-08-2022 10:00-0400 Diastolic blood pressure 62 mm[Hg] Amanda Logan Other [employer] Other 02-08-2022 10:00-0400 Systolic blood pressure 110 mm[Hg] Amanda Logan Other [employer] Other 09-01-2021 14:38-0400 Blood Pressure Location Samir Thompson [facility] 09-01-2021 14:38-0400 Diastolic blood pressure 61 mm[Hg] Samir Fiorechristine [facility] 09-01-2021 14:38-0400 Heart rate 61 /min Samir Thompson [facility] 09-01-2021 14:38-0400 Respiratory rate 18 /min Samir Thompson [facility] 09-01-2021 14:38-0400 SaO2% (BldA) [Mass fraction] 100 % Samir Thompson [facility] 09-01-2021 14:38-0400 Systolic blood pressure 103 mm[Hg] Samir Sandovalofferson [facility] 07-24-2021 14:39-0400 Blood Pressure Location Samir Thompson [facility] 07-24-2021 14:39-0400 Diastolic blood pressure 77 mm[Hg] Samir Sandovalofferson [facility] 07-24-2021 14:39-0400 Heart rate 65 /min Samir Sandovalofferson [facility] 07-24-2021 14:39-0400 Respiratory rate 18 /min Samir Thompson [facility] 07-24-2021 14:39-0400 SaO2% (BldA) [Mass fraction] 100 % Samir Thompson [facility] 07-24-2021 14:39-0400 Systolic blood pressure 115 mm[Hg] Samir Thompson [facility] 07-16-2021 11:00-0400 Body height 180.34 cm Amanda Ford Other [employer] Other 07-16-2021 11:00-0400 Body mass index (BMI) [Ratio] 29.15 kg/m2 Amanda Ford Other [employer] Other 07-16-2021 11:00-0400 Body weight 94.8 kg Amanda Ford Other [employer] Other 07-16-2021 11:00-0400 Diastolic blood pressure 64 mm[Hg] Amanda Ford Other [employer] Other 07-16-2021 11:00-0400 SaO2% (BldA) [Mass fraction] 98 % Amanda Ford Other [employer] Other 07-16-2021 11:00-0400 Systolic blood pressure 102 mm[Hg] Amanda Ford Other [employer] Other 05-08-2020 08:20-0500 Body Temperature 97.7 [degF] [facility] 05-08-2020 08:20-0500 BP Diastolic 89 mm[Hg] [facility] 05-08-2020 08:20-0500 BP Systolic 156 mm[Hg] [facility] 05-08-2020 08:20-0500 Pulse (Heart Rate) 101 /min [facility] 05-08-2020 08:20-0500 Pulse Oximetry 96 % [facility] 05-08-2020 08:20-0500 Respiratory Rate 19 /min [facility] 05-06-2020 08:51-0500 BMI (Body Mass Index) 58.86 kg/m2 [facility] 05-06-2020 08:51-0500 Body weight 191.42 kg [facility] 05-06-2020 08:51-0500 Height 180.3 cm [facility] 04-22-2020 13:30-0500 BMI (Body Mass Index) 61.79 kg/m2 [address], [place] 04-22-2020 13:30-0500 Body Temperature 97.11 [degF] [address] [employer], [place] 04-22-2020 13:30-0500 Body weight 200.[address] 04-22-2020 13:30-0500 BP Diastolic 90 mm[Hg] [facility] [place] , [place] 04-22-2020 13:30-0500 BP Systolic 148 mm[Hg] [facility] [place] , [place] 04-22-2020 13:30-0500 Height 180.3 cm [facility] [place] , [place] 04-22-2020 13:30-0500 Pulse (Heart Rate) 104 /min [facility] [place], [place] 04-22-2020 13:30-0500 Pulse Oximetry 97 % [facility] [place] , [place] 04-22-2020 13:30-0500 Respiratory Rate 18 /min [facility] [place] Encounters Encounter Date Encounter Type Care Provider Facility Start: 01-16-2025 End: 01-16-2025 Bamboo flowsheet Viry Duenas NP Work Phone: [facility] Start: 01-16-2025 End: 01-16-2025 Bamboo flowsheet Viry Duenas VIDEO SYSTEM REPAIRER Work Phone: [facility] Start: 01-16-2025 End: 01-16-2025 Office outpatient visit 15 minutes Viry Duenas NP Work Phone: [facility] Comment on above: 26 weeks gestation o f ([facility]); Second trimester ([facility]); TSH (thyroid-stimulating hormone deficiency) Start: 01-16-2025 End: 01-16-2025 ambulatory VIRY DUENAS Not Available Start: 01-11-2025 End: 01-11-2025 Clinisync Result Encounter Les Juan DO Work Phone: [facility] External [facility] Unsolicited Start: 01-11-2025 End: 01-11-2025 Clinisync Result Encounter Les Juan DO Work Phone: [facility] External Department Unsolicited Start: 01-09-2025 End: 01-09-2025 Clinisync Result Encounter Jojo OGDEN Work Phone: [facility] Unsolicited Start: 01-09-2025 End: 01-09-2025 Clinisync Result Encounter Jojo OGDEN Work Phone: [facility] External Department Unsolicited Start: 01-04-2025 End: 01-04-2025 Orders Only Krystyna Dick RN [facility] Comment on above: Previous gastric byp ass affecting , antepartum (Primary Dx); Hypothyroidism affecting in second trimester; 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 ([facility]); Obesity affecting in second trimester, unspecified obesity type Start: 01-03-2025 End: 01-03-2025 ambulatory NO PCP NO PCP [facility] Start: 01-03-2025 End: 01-03-2025 Telephone encounter Roslyn Griffin RN [facility] [place] Start: 12-19-2024 End: 12-19-2024 Bamboo flowsheet Jojo OGDEN Work Phone: GUDELIA Chacko OBNAOMIE Start: 12-19-2024 End: 12-19-2024 Bamboo flowsheet Jojo OGDEN Work Phone: [facility] Start: 12-19-2024 End: 12-19-2024 Office outpatient visit 15 minutes Jojo OGDEN Work Phone: [facility] HERNANDE[facility] Comment on above: 22 weeks gestation o f ([facility]); Second trimester ([facility]); Thyroid disease ; H/O gastric sleeve; H/O iron deficiency anemia; Diabetes mellitus screening Start: 12-19-2024 End: 12-19-2024 ambulatory JOJO AMES Not Available Start: 12-15-2024 End: 12-18-2024 Clinisync Result Encounter Les Martinez DO Work Phone: [facility] External Department Unsolicited Start: 12-15-2024 End: 12-18-2024 Clinisync Result Encounter Les Juan DO Work Phone: [facility] External Department Unsolicited Start: 12-05-2024 End: 12-05-2024 Office consultation new/estab patient 80 min Latricia Lindquist MD Work Phone: [facility] at [facility] Comment on above: 20 weeks gestation o f (Primary Dx); Previous gastric bypass affecting , antepartum; Obesity affecting in second trimester, unspecified obesity type; Hypothyroidism affecting in second trimester; 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 ([facility]); headache in second trimester Start: 12-05-2024 End: 12-05-2024 Orders Only Chiquita Shen RN [facility] Comment on above: Previous gastric byp ass affecting , antepartum (Primary Dx); Hypothyroidism affecting in second trimester; 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 ([facility]); Obesity affecting in second trimester, unspecified obesity type; Encounter for supervision of resulting from assisted reproductive technology, antepartum Start: 12-04-2024 End: 12-04-2024 ambulatory LES MARTINEZ Not Available Start: 12-02-2024 End: 12-03-2024 Patient encounter procedure Eduardo A Visci DO -[facility] - O/P Start: 12-02-2024 End: 12-03-2024 ambulatory Amanda Ford APRN Work Phone: [facility] Work Phone: Start: 12-02-2024 End: 12-03-2024 External Result Encounter Eduardo A Visci DO Work Phone: [facility] External Department Unsolicited Start: 12-02-2024 End: 12-03-2024 External Result Encounter Eduardo A Visci DO Work Phone: [facility] External Department Unsolicited Start: 12-01-2024 Non-patient / Non-visit ([place]) Elizabeth MCDERMOTT -[facility] Work Phone: Start: 11-30-2024 End: 11-30-2024 ambulatory Amanda Ford APRN Work Phone: [facility] Work Phone: Start: 11-30-2024 End: 11-30-2024 Departed Referred Chris Chapman DO -[facility] Start: 11-30-2024 Non-patient / Non-visit Chris Chapman Giferent -[facility] Work Phone: Start: 11-20-2024 End: 11-20-2024 Bamboo flowsheet Les Juan DO Work Phone: [facility] Start: 11-20-2024 End: 11-21-2024 Bamboo flowsheet Les Juan DO Work Phone: [facility] Start: 11-20-2024 End: 11-20-2024 Clinisync Result Encounter Les Juan DO Work Phone: [facility] External Department Unsolicited Start: 11-20-2024 End: 11-21-2024 External Result Encounter Les Juan DO Work Phone: [facility] External Department Unsolicited Start: 11-20-2024 Non-patient / Non-visit Les Juan -[employer] Work Phone: Start: 11-20-2024 End: 11-20-2024 Patient encounter procedure Les Juan DO Work Phone: [facility] Start: 11-20-2024 End: 11-20-2024 Periodic preventive med est patient 18-39 yrs Les Juan DO Work Phone: [facility] Comment on above: Well woman exam with routine gynecological exam; Exposure to STD; Second trimester ([facility]); 18 weeks gestation of ([facility]); Need for maternal serum alpha-protein (MSAFP) screening ([facility]); Screening, , for anatomic survey ([facility]); Thyroid disease Start: 11-20-2024 End: 11-20-2024 ambulatory LES JUAN Not Available Start: 11-17-2024 Non-patient / Non-visit Chris Chapman [employer] [facility] [employer] Work Phone: Start: 10-26-2024 End: 10-26-2024 Orders Only Not In System Ref Prov [facility] Start: 10-22-2024 End: 10-22-2024 Office outpatient visit 15 minutes Les Juan DO Work Phone: [facility] Comment on above: 13 weeks gestation o f ([facility]); Second trimester ([facility]); Thyroid disease ; H/O gastric sleeve; H/O iron deficiency anemia; resulting from in vitro fertilization in first trimester ([facility]) Start: 10-22-2024 End: 10-22-2024 ambulatory LES JAUN Not Available Start: 10-18-2024 End: 10-18-2024 Emergency department patient visit Amanda Ford APRN Work Phone: -Emergency Room Work Phone: Start: 10-10-2024 End: 10-10-2024 Clinisync Result Encounter Les Juan DO Work Phone: [facility] External Department Unsolicited Start: 10-10-2024 End: 10-10-2024 Clinisync Result Encounter Les Juan DO Work Phone: [facility] External Department Unsolicited Start: 09-26-2024 End: 09-26-2024 ambulatory Amanda Ford Facility:[facility] Start: 09-20-2024 End: 09-20-2024 Office outpatient visit 5 minutes [facility] Juan Nurse [facility] Comment on above: GA: 9w2d Start: 09-20-2024 End: 09-20-2024 ambulatory AHMAD FLY Not Available Start: 09-03-2024 End: 09-03-2024 Nursing evaluation of patient and report Us Tech 1 Fh Rej Work Phone: [facility] Comment on above: Early stage of pregn [facility]) Start: 09-03-2024 End: 09-03-2024 ambulatory SHELLY HERNANDEZ Facility:[facility] Start: 08-28-2024 End: 08-28-2024 Nursing evaluation of patient and report Us Tech 2 [facility] Work Phone: [facility]ocr[facility]ology [facility] Comment on above: 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) Start: 08-28-2024 End: 08-28-2024 ambulatory SHELLY GONZALEZKEY Facility:[facility] Start: 08-24-2024 End: 08-24-2024 Telephone encounter Shelly Hernandez [employer] Work Phone: [facility] Comment on above: Patient Question Start: 08-23-2024 End: 08-24-2024 Telephone encounter Shelly Yecenia David [employer]ONE[employer] Work Phone: [facility] Comment on above: Pain Start: 08-22-2024 End: 08-22-2024 Bamboo flowsheet Darleen Sinclair MD Work Phone: [facility] Start: 08-22-2024 End: 08-22-2024 Bamboo flowsheet Darleen Sinclair MD Work Phone: [facility] Start: 08-22-2024 End: 08-22-2024 Office outpatient visit 25 minutes Darlene Sinclair MD Work Phone: [facility] Comment on above: Abnormal thyroid fun ction test (Primary Dx); H/O gastric bypass; 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[facility]); Vitamin D deficiency Start: 08-22-2024 End: 08-22-2024 ambulatory DARLEEN SINCLAIR Not Available Start: 08-20-2024 End: 08-20-2024 Telemedicine consultation with patient Shelly Hernandez [employer] Work Phone: [facility] Start: 08-20-2024 End: 08-20-2024 ambulatory Shelly Hernandez APRN.[employer] Work Phone: [facility] Comment on above: 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) (Primary Dx) Start: 08-18-2024 End: 08-23-2024 ambulatory Shelly Hernandez PICTURE HANGER.[employer] Work Phone: [facility] Comment on above: Ultrasound Start: 08-17-2024 End: 08-17-2024 ambulatory Amanda Ford Facility:[facility] Start: 08-16-2024 End: 08-16-2024 Telephone encounter Shelly Hernandez APRN.[employer] Work Phone: [facility] Comment on above: positive for pregnan cy Start: 08-15-2024 End: 08-15-2024 Telephone encounter Shelly Hernandez APRN.[employer] Work Phone: [facility]ology [facility] Comment on above: Patient Question Start: 08-15-2024 End: 08-15-2024 ambulatory [facility] Facility:[facility] Start: 08-13-2024 End: 08-13-2024 ambulatory [facility] Facility:[facility] Start: 07-31-2024 End: 07-31-2024 ambulatory SELF Facility:[facility] Start: 07-31-2024 End: 07-31-2024 Patient encounter procedure Andrology Buoy Tender Work Phone: [facility] Comment on above: Procreative manageme nt (Primary Dx) Start: 07-30-2024 End: 07-30-2024 Telephone encounter Shelly Hernandez APRN.[employer] Work Phone: [facility] Endocrinology [facility] Comment on above: Patient Question Start: 07-25-2024 End: 07-25-2024 ambulatory SELF Facility:[facility] Start: 07-07-2024 End: 07-07-2024 ambulatory MIKEY TORRES Facility:[facility] Start: 07-07-2024 End: 07-07-2024 Patient encounter procedure Andrology Buoy Tender Work Phone: [facility] Comment on above: Procreative manageme nt (Primary Dx) Encounter for artifi cial insemination (Primary Dx) Start: 07-06-2024 End: 07-06-2024 Telephone encounter Shelly Hernandez APRN.[employer] Work Phone: [facility] Comment on above: Patient calling back /re iui 07/07 unsure Start: 07-05-2024 End: 07-06-2024 Telephone encounter Ignacio Guy MD Work Phone: [facility] Comment on above: re iui this wknd/has cervical polyp question Start: 07-04-2024 End: 07-04-2024 Telephone encounter Shelly Hernandez APRN.[employer] Work Phone: [facility] Comment on above: Treatment Planning Start: 07-04-2024 End: 07-11-2024 ambulatory Shelly Hernandez PICTURE HANGER.[employer] Work Phone: [facility] Comment on above: Ovulating Start: 07-04-2024 End: 07-04-2024 Patient encounter procedure Us Tech 3 [facility] Work Phone: Rep[facility]ocr[facility]ology [facility] Start: 07-02-2024 End: 07-02-2024 ambulatory SHELLY HERNANDEZ Facility:[facility] Start: 06-29-2024 End: 06-29-2024 ambulatory SHELLY HERNANDEZ Facility:[facility] Start: 06-23-2024 End: 06-29-2024 ambulatory Shelly Hernandez PICTURE HANGER[employer] Work Phone: [facility]ductive End[facility]ology [facility] Comment on above: Negative t est and possible hematoma Start: 06-09-2024 End: 06-09-2024 ambulatory IGNACIO GUY Facility:[facility] Start: 06-09-2024 End: 06-09-2024 Patient encounter procedure Andrology Buoy Tender Work Phone: [facility] Comment on above: Procreative manageme nt (Primary Dx) Female infertility ( Primary Dx) Start: 06-05-2024 End: 06-07-2024 ambulatory Shelly Hernandez APRN.[employer] Work Phone: [facility] Start: 06-05-2024 End: 06-07-2024 Patient encounter procedure Shelly Hernandez PICTURE HANGER.[employer] Work Phone: [facility] Comment on above: IUI appointment Start: 05-22-2024 End: 05-23-2024 ambulatory Shelly Hernandez PICTURE HANGER.[employer] Work Phone: [facility]ology [facility] Comment on above: Progesterone results Start: 05-21-2024 End: 05-21-2024 ambulatory Shelly Hernandez Facility:[facility] Start: 05-18-2024 End: 05-18-2024 ambulatory SHELLY HERNANDEZ Facility:[facility] Start: 05-09-2024 End: 05-09-2024 ambulatory Shelly Hernandez PICTURE HANGER.[employer] Work Phone: [facility]ductive Endocrinology [facility] Comment on above: Reproductive mgmt, 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) Start: 05-09-2024 End: 05-09-2024 Telemedicine consultation with patient Shelly Hernandez PICTURE HANGER.[employer] Work Phone: [facility] Start: 05-06-2024 End: 05-07-2024 ambulatory Shelly Hernandez PICTURE HANGER.[employer] Work Phone: Rep[facility]ductive Endocrinology [facility] Comment on above: Consent form Start: 05-02-2024 End: 05-02-2024 Telemedicine consultation with patient Saúl A Destin PhD Work Phone: [facility] Comment on above: Bipolar 1 disorder ( Multi) (Primary Dx); Infertility counseling Start: 05-02-2024 End: 05-02-2024 [facility] Ambulatory Start: 04-26-2024 End: 04-26-2024 ambulatory [facility] Work Phone: Start: 04-26-2024 End: 04-26-2024 Patient encounter procedure [facility] Work Phone: Start: 04-24-2024 End: 04-24-2024 ambulatory SHELLY HERNANDEZ Facility:[facility] Start: 04-23-2024 End: 04-23-2024 ambulatory [facility] Work Phone: Start: 04-23-2024 End: 04-23-2024 Patient encounter procedure [facility] Work Phone: Start: 04-02-2024 End: 04-03-2024 ambulatory Shelly Hernandez PICTURE HANGER.[employer] Work Phone: Reproductive Endocrinology [facility] Comment on above: Genetic testing Start: 03-09-2024 End: 03-09-2024 ambulatory Shelly Hernandez PICTURE HANGER.[employer] Work Phone: [facility]ology [facility] Comment on above: Reproductive mgmt, 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); Special screening examination for infectious diseases; Encounter for other genetic testing of female for procreative management Start: 03-09-2024 End: 03-09-2024 Telemedicine consultation with patient Shelly Hernandez PICTURE HANGER[employer] Work Phone: [facility]ology [facility] Start: 02-29-2024 End: 02-29-2024 ambulatory SHELLY HERNANDEZ Facility:[facility] Start: 02-28-2024 End: 02-28-2024 ambulatory IGNACIO GUY Facility:[facility] Start: 02-28-2024 End: 02-28-2024 Patient encounter procedure Ignacio Guy MD Work Phone: [facility]ocr[facility]ology [facility] Comment on above: Encounter for male f actor 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 (Primary Dx) Start: 02-27-2024 End: 02-27-2024 ambulatory Amanda Ford APRN Work Phone: [facility] Work Phone: Start: 02-27-2024 End: 02-27-2024 Patient encounter procedure Amanda Ford APRN Work Phone: [facility] Work Phone: Start: 02-20-2024 Non-patient / Non-visit [facility] Work Phone: Start: 02-20-2024 End: 02-20-2024 Patient encounter procedure Les Martinez DO Work Phone: [facility] Start: 02-20-2024 End: 02-20-2024 Periodic preventive [...] Department Unsolicited Start: 01-17-2024 End: 01-17-2024 ambulatory PICTURE HANGERTanja Ford Work Phone: [facility] Work Phone: Start: 01-17-2024 End: 01-17-2024 Patient encounter procedure PICTURE HANGERTanja Ford Work Phone: [facility] Work Phone: Start: 01-10-2024 Non-patient / Non-visit PICTURE HANGERTanja Ford Work Phone: [facility] Work Phone: Start: 12-20-2023 End: 12-20-2023 ambulatory PICTURE HANGERTanja Ford Work Phone: [facility] Work Phone: Start: 12-20-2023 End: 12-20-2023 Patient encounter procedure PICTURE HANGERTanja Ponceacher Work Phone: [facility] [place] [facility] Work Phone: Start: 12-09-2023 ambulatory Romeo Santana DO [facility] Start: 12-07-2023 Non-patient / Non-visit PICTURE HANGER Amanda Logan Work Phone: [facility] Work Phone: Start: 12-07-2023 End: 12-07-2023 Admission to same day surgery center PICTURE HANGER Amanda Logan Work Phone: [facility] [place] Start: 12-07-2023 End: 12-07-2023 ambulatory PICTURE HANGER Amanda Logan Work Phone: [facility] Work Phone: Start: 12-01-2023 End: 12-01-2023 ambulatory PICTURE HANGER Amanda Logan Work Phone: [facility] Work Phone: Start: 12-01-2023 End: 12-01-2023 Patient encounter procedure PICTURE HANGER Amanda Logan Work Phone: [facility] Work Phone: Start: 11-28-2023 End: 11-28-2023 ambulatory PICTURE HANGER Amanda Logan Work Phone: [facility] Work Phone: Start: 11-28-2023 End: 11-28-2023 Patient encounter procedure MELY Amanda Logan Work Phone: [facility]-Pre-Surgical Testing Work Phone: Start: 11-02-2023 End: 11-02-2023 Emergency department patient visit Amanda Ford [facility] Start: 11-01-2023 End: 11-01-2023 ambulatory PICTURE HANGER Amanda Logan Work Phone: [facility] Work Phone: Start: 11-01-2023 End: 11-01-2023 Patient encounter procedure PICTURE HANGER Amandahina Ford Work Phone: [facility] [place] [facility] Work Phone: Start: 10-26-2023 End: 10-26-2023 ambulatory MELY Mittalnifer Logan Work Phone: [facility] Work Phone: Start: 10-26-2023 End: 10-26-2023 Patient encounter procedure PICTURE HANGER Amandahina Ford Work Phone: [facility] Work Phone: Start: 10-13-2023 End: 10-13-2023 ambulatory [facility] Work Phone: Start: 10-13-2023 End: 10-13-2023 Patient encounter procedure [facility] Work Phone: Start: 09-15-2023 Non-patient / Non-visit [facility] Work Phone: Start: 06-08-2023 End: 06-08-2023 ambulatory [facility] Work Phone: Start: 06-08-2023 End: 06-08-2023 Patient encounter procedure [facility] Work Phone: Start: 05-17-2023 End: 05-17-2023 ambulatory Amanda Ford Other [employer] Other Start: 05-17-2023 Office outpatient visit 15 minutes Romeo Santana [facility] Start: 05-17-2023 Telephone encounter Amanda Gonzales [facility] Start: 05-17-2023 End: 05-17-2023 Patient encounter procedure [facility]- Start: 04-28-2023 End: 04-28-2023 ambulatory Amanda Ford Other [employer] Other Start: 04-28-2023 Telephone encounter Amanda Gonzales her [facility] Start: 04-22-2023 End: 04-22-2023 ambulatory Amanda Jovaninikkie Other [employer] Other Start: 04-22-2023 Telephone encounter Amanda Gonzales her [facility] Start: 04-19-2023 End: 04-19-2023 ambulatory Amanda Jovaninikkie Other [employer] Other Start: 04-19-2023 Telephone encounter Amanda Shethsarahsari her [facility] [address] Start: 04-14-2023 End: 04-14-2023 ambulatory Amanda Jovaninikkie Other [employer] Other Start: 04-14-2023 Telephone encounter Amanda Gonzales her [facility] Start: 03-17-2023 End: 03-17-2023 ambulatory Romeo Santana Other [employer] Other Start: 03-17-2023 Telephone encounter Romeo Santana [facility] Start: 02-07-2023 End: 02-07-2023 ambulatory Amanda Logan Other [employer] Other Start: 02-07-2023 Office outpatient visit 15 minutes Petr Lay [facility] [place] Start: 02-07-2023 Telephone encounter Amanda Gonzales her [facility] Start: 01-27-2023 End: 01-27-2023 ambulatory Amanda Jovaninikkie Other [employer] Other Start: 01-27-2023 Telephone encounter Amanda Gonzales her [facility] [place] Start: 01-19-2023 End: 01-19-2023 ambulatory Amanda Logan Other [employer] Other Start: 01-19-2023 Telephone encounter Amanda Gonzales her [facility] Start: 01-13-2023 End: 01-13-2023 ambulatory Amanda Ponceacher Other [employer] Other Start: 01-13-2023 Telephone encounter Amanda Gonzales her [facility] Start: 01-10-2023 End: 01-10-2023 ambulatory Amanda Shethrbacher Other [employer] Other Start: 01-10-2023 Telephone encounter Amanda Gonzales her [facility] Start: 01-06-2023 End: 01-06-2023 ambulatory Amanda Ponceacher Other [employer] Other Start: 01-06-2023 Telephone encounter Amanda Gonzales her [facility] Start: 12-27-2022 End: 12-27-2022 ambulatory Petr Patmer Other [employer] Other Start: 12-27-2022 Office outpatient visit 15 minutes Petr Lay [facility] [place] Start: 11-10-2022 End: 11-10-2022 ambulatory Amanda Ponceacher Other [employer] Other Start: 11-10-2022 Telephone encounter Amanda Gonzales her [facility] [place] Start: 10-21-2022 End: 10-21-2022 ambulatory Amanda Shethrbacher Other [employer] Other Start: 10-21-2022 Telephone encounter Amanda Gonzales her [facility] [place] Start: 10-11-2022 End: 10-11-2022 ambulatory Petr Lay Other [employer] Other Start: 10-11-2022 Office consultation new/estab patient 40 min Petr Lay [facility] [place] Start: 09-30-2022 End: 09-30-2022 ambulatory Amanda Ford Other [employer] Other Start: 09-30-2022 Office outpatient visit 15 minutes Amanda Ford [facility] [place] Start: 08-25-2022 End: 08-25-2022 ambulatory Amanda Hahnr Other [employer] Other Start: 08-25-2022 Office outpatient visit 15 minutes Amanda Ford [facility] [place] Start: 08-20-2022 End: 08-20-2022 ambulatory Amanda Ford Other [employer] Other Start: 08-20-2022 Office outpatient visit 15 minutes Amanda Ford [facility] [place] Start: 07-19-2022 End: 07-19-2022 ambulatory Amanda Hahnr Other [employer] Other Start: 07-19-2022 Telephone encounter Amanda Shethfelecia her [facility] [place] Start: 07-08-2022 End: 07-08-2022 ambulatory Amanda Ford Other [employer] Other Start: 07-08-2022 Telephone encounter Amanda Shethsarahsari her [facility] [place] Start: 06-23-2022 End: 06-23-2022 ambulatory PICTURE HANGERTanja Ford Work Phone: [facility] Work Phone: Start: 06-23-2022 End: 06-23-2022 Patient encounter procedure PICTURE HANGER Amanda Ford Work Phone: [facility] [place] Work Phone: Start: 06-17-2022 End: 06-17-2022 ambulatory Amanda Ford Other [facility] [employer] Other Start: 06-17-2022 Telephone encounter Amanda Gonzales her [employer] Start: 06-16-2022 End: 06-16-2022 ambulatory PICTURE HANGER Amanda Ford Work Phone: [facility] Work Phone: Start: 06-16-2022 End: 06-16-2022 Patient encounter procedure PICTURE HANGERTanja Ford Work Phone: [facility] [place] Work Phone: Start: 06-10-2022 End: 06-11-2022 Evaluation and management of inpatient MD Robin Appiah Work Phone: [facility] Work Phone: Start: 06-10-2022 observation encounter MD Estrada Appiah Work Phone: [facility] Work Phone: Start: 06-09-2022 End: 06-09-2022 ambulatory MD Robin Appiah Work Phone: [facility] Work Phone: Start: 06-09-2022 End: 06-09-2022 Patient encounter procedure MD Robin Appiah Work Phone: [facility] [place] Work Phone: Start: 04-26-2022 End: 04-26-2022 ambulatory Amanda Ford Other [facility] [employer] Other Start: 04-26-2022 Telephone encounter Amanda Gonzales her [facility] Start: 04-23-2022 End: 04-23-2022 ambulatory Amanda Hahnr Other [facility] [employer] Other Start: 04-23-2022 Telephone encounter Amanda Gonzales her [facility] Start: 04-21-2022 End: 04-21-2022 Departed Referred MD Robin Appiah Work Phone: [facility] [place] Work Phone: Start: 04-21-2022 End: 04-21-2022 ambulatory MD Robin Appiah Work Phone: [facility] Work Phone: Start: 04-21-2022 Office outpatient visit 15 minutes Amanda Logan [facility] Start: 04-20-2022 End: 04-20-2022 ambulatory Amanda Shethbilly Other [facility] [employer] Other Start: 04-20-2022 Telephone encounter Amanda Gonzales her [facility] Start: 04-13-2022 End: 04-13-2022 ambulatory Amanda Jovanir Other [facility] [employer] Other Start: 04-13-2022 Telephone encounter Amanda Gonzales her [facility] Start: 04-10-2022 End: 04-10-2022 Emergency department patient visit MD Robin Appiah Work Phone: [facility]Emer[facility] Work Phone: Start: 04-08-2022 End: 04-08-2022 Emergency department patient visit MD Robin Appiah Work Phone: [facility] Work Phone: Start: 03-30-2022 End: 03-30-2022 ambulatory Amanda Jovanir Other [employer] Other Start: 03-30-2022 Telephone encounter Amanda Shethfelecia her [facility] [place] Start: 03-23-2022 End: 03-23-2022 Patient encounter procedure MD Robin Appiah Work Phone: [facility] [place] Start: 03-23-2022 End: 03-23-2022 ambulatory Amanda Logan Other [employer] Other Start: 03-23-2022 Office outpatient visit 15 minutes Amanda Logan [facility] [place] Start: 03-17-2022 End: 03-17-2022 ambulatory Amanda Logan Other [employer] Other Start: 03-17-2022 Telephone encounter Amanda Shethsarahsari her [facility] [place] Start: 02-08-2022 End: 02-08-2022 ambulatory Amanda Jovanir Other [employer] Other Start: 02-08-2022 Office outpatient visit 25 minutes Amanda Logan [facility] Family [facility] [place] Start: 09-01-2021 End: 09-01-2021 Patient encounter procedure Samir Thompson [facility] Start: 08-25-2021 End: 08-25-2021 Patient encounter procedure Samir Thompson [facility] Start: 08-06-2021 End: 08-06-2021 Patient encounter procedure Samir Thompson [facility] Start: 07-24-2021 End: 07-24-2021 Patient encounter procedure Samir Thompson [facility] Start: 07-23-2021 End: 07-23-2021 ambulatory Amanda Shethbilly Other [facility] [employer] Other Start: 07-23-2021 Telephone encounter Amanda Shethfelecia her [facility] [employer] Start: 07-16-2021 End: 07-16-2021 ambulatory Amanda Logan Other [facility] [employer] Other Start: 07-16-2021 Office outpatient ne w 30 minutes Amanda Ford [facility] Family [facility] [place] Start: 03-30-2021 End: 03-30-2021 Emergency department patient visit ROBIN APPIAH [facility] Start: 05-06-2020 End: 05-08-2020 ambulatory RASHARD Gilmore [facility] Start: 05-06-2020 End: 05-08-2020 Subsequent hospital visit by physician Rashard Olivera Work Phone: [facility]/Med Surg Comment on above: Post-op pain (Primar y Dx) Start: 05-02-2020 End: 05-03-2020 Patient encounter procedure MACKENZIE BRITO [facility] Start: 05-02-2020 End: 05-02-2020 Subsequent hospital visit by physician Michael Hendricks Screening Schedule MICHAEL Hendricks Screening Comment on above: Pre-op testing (Prim cj Dx) Start: 04-22-2020 End: 04-25-2020 ambulatory RASHARD Gilmore [facility] Start: 04-22-2020 End: 04-27-2020 ambulatory RASHARD Gilmore [facility] Start: 04-22-2020 End: 04-24-2020 Subsequent hospital visit by physician Lam C-Arm 2 [facility] Radiology Comment on above: Arrived Start: 04-22-2020 End: 04-26-2020 Subsequent hospital visit by physician Martita [facility] 2 [facility] Pre-Admit Testing Procedures Date Procedure Procedure Detail Performing Clinician Start: 01-16-2025 Urnls dip stick/tabl et rgnt non-auto w/o micrscp Viry Duenas NP Work Phone: Start: 01-11-2025 ALL THYROID STIM HORMONE Les Juna DO Work Phone: Start: 01-09-2025 ALL CBC WITH AUTO DIFF Jojo OGDEN Work Phone: Start: 01-09-2025 GLUCOSE 1 HOUR Jojo Fuentes Work Phone: Start: 12-19-2024 Urnls dip stick/tabl et rgnt non-auto w/o micrscp Jojo OGEDN Work Phone: Start: 12-15-2024 [facility] UA (CLEAN/CATCH) PIE FILLING MIXER/MICRO IF IND. Les Monsivaiso DO Work Phone: Start: 12-15-2024 TB URINE MICROSCOPIC ONLY Les Martinez DO Work Phone: Start: 12-02-2024 Urnls dip stick/tabl et rgnt auto w/o microscopy Eduardo A Visci DO Work Phone: Start: 11-20-2024 RECURRENT VAGINITIS [...] of kendrick wth of fungi Amanda Ford [employer] Work Phone: Start: 10-18-2024 Trichomonas vaginali s detection Amanda Ford [employer] Work Phone: Start: 10-18-2024 Urine culture Amanda Ford [employer] Work Phone: Start: 10-18-2024 Diagnostic ultrasoun d of gravid uterus Amanda Ford [employer] Work Phone: Start: 10-16-2024 UNLISTED LAB TEST [...] uterus after 1st trimest 04/18 gestation Shelly Yecenia David [employer] Work Phone: Start: 08-28-2024 Us preg uterus after 1st trimest / gestation Shelly G David [employer] Work Phone: Start: 07-04-2024 Us pelvic nonobstetr ic real-time image complete Ignacio Guy MD Work Phone: Start: 04-02-2024 Antibody screen SHELLY HERNANDEZ Comment on above: Order Comment: Speci men Type: BLOOD SPECIMEN Ordering Facility: [facility] Address: [address] [place] [address] Performed By: #### T SPN #### [facility] CLIA [id number] [address] [place] [address] [place] Start: 02-20-2024 IGP,APTIMA [...] Phone: Start: 04-22-2020 Assay of nicotine Rashad thuy [place] Work Phone: Start: 04-22-2020 Basic metabolic pane l calcium total Rashard Olivera Work Phone: Start: 04-22-2020 Blood count complete automated Rashard Olivera Work Phone: Start: 04-22-2020 Prothrombin time Nraendra Olivera Work Phone: Start: 04-22-2020 Thromboplastin time partial plasma/whole blood Rashard Olivera Work Phone: Start: 04-22-2020 Ecg routine ecg w/le ast 12 lds i&r only Rashard Olivera Work Phone: Start: 04-22-2020 EKG REPORT Hpf Scanni ng Cholecystectomy Samir Gurinder robertson Comment on above: 2016 Plan of Treatment Date Care Activity Detail Author Start: 2070 RSV Vaccine (1 - 1-dose 75+ series) RSV Vaccine (1 - 1-dose 75+ series) [facility] Start: 2045 Zoster Vaccines (1 of 2) Zoster Vaccines (1 of 2) [facility] Start: 12-25-2032 DTaP,Tdap and Td Vaccines (2 - Td or Tdap) DTaP,Tdap and Td Vaccines (2 - Td or Tdap) [facility] Start: 12-25-2032 DTaP/Tdap/Td Vaccines (2 - Td or Tdap) DTaP/Tdap/Td Vaccines (2 - Td or Tdap) [facility] Start: 12-25-2032 Urine microalbumin profile DTaP,Tdap,Td Vaccine (2 - Td or Tdap) [facility] Start: 02-19-2027 Screening for malignant neoplasm of cervix [facility] Start: 12-05-2025 Adult BMI Screening Adult BMI Screening [facility] Start: 12-05-2025 Tobacco Screening Tobacco Screening [facility] Start: 12-05-2025 End: 12-05-2025 US MFM with or without consult US MFM with or without consult Imaging Routine Previous gastric bypass affecting , antepartum Hypothyroidism affecting in second trimester 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 ([facility]) Obesity affecting in second trimester, unspecified obesity type Encounter for supervision of resulting from assisted reproductive technology, antepartum Expected: 12/05/2025 (Approximate), Expires: 12/05/2025 [facility] Work Phone: Comment on above: Expected: 12/05/2025 (Approximate), Expi res: 12/05/2025 Start: 08-21-2025 End: 08-21-2025 Patient encounter procedure [facility] Start: 02-20-2025 End: 02-20-2025 Patient encounter procedure [facility] Start: 02-07-2025 End: 02-07-2025 Patient encounter procedure 02/07/2025 9:45 AM EDT Appointment [facility] [place] [address] [facility] [address] [place] [address] [facility] [place] Start: 02-06-2025 End: 02-06-2025 Patient encounter procedure 02/06/2025 2:30 PM EDT Routine [facility] [address] [place] [id number] Jojo Ames PA [address] [place] [address] GUDELIA HERNANDEZ Start: 02-03-2025 End: 01-04-2026 US MFM with or without consult US MFM with or without consult Imaging Routine Previous gastric bypass affecting , antepartum Hypothyroidism affecting in second trimester 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 ([facility]) Obesity affecting in second trimester, unspecified obesity type Expected: 02/03/2025 (Approximate), Expires: 01/04/2026 [facility] Work Phone: Comment on above: Expected: 02/03/2025 (Approximate), Expi res: 01/04/2026 Start: 01-30-2025 End: 01-30-2025 Professional / ancillary services management 01/30/2025 2:30 PM EDT Ancillary Procedure GUDELIA HERNANDEZ [address] [place] [address] [place] [address] GUDELIA HERNANDEZ Start: 01-16-2025 End: 05-19-2025 US for US OB follow up transabdominal approach Imaging Routine TSH (thyroid-stimulating hormone deficiency) Expected: 01/16/2025, Expires: 05/19/2025 [employer] Work Phone: Comment on above: Expected: 01/16/2025, Expires: Start: 01-16-2025 End: 01-16-2025 Patient encounter procedure GUDELIA HERNANDEZ Comment on above: Arrived Start: 01-03-2025 End: 01-03-2025 Patient encounter procedure 01/03/2025 2:15 PM EDT Appointment [facility] [place] [address] [facility] [address] [place] [phone] [facility] [place] Start: 12-19-2024 End: 12-19-2025 CBC panel - [...] mellitus screening Expected: 12/19/2024 (Approximate), Expires: 12/19/2025 [facility] Comment on above: Expected: 12/19/2024 (Approximate), Expi res: 12/19/2025 Start: 12-19-2024 End: 12-19-2024 Patient encounter procedure GUDELIA HERNANDEZ Comment on above: Arrived Start: 12-17-2024 COVID-19 Vaccine () COVID-19 Vaccine () [facility] Start: 12-17-2024 Influenza vaccination [facility] Start: 12-05-2024 End: 12-05-2024 Patient encounter procedure [facility] Start: 12-04-2024 End: 12-04-2024 Professional / ancillary services management 12/04/2024 8:30 AM EDT Ancillary Procedure GUDELIA HERNANDEZ [address] [place] [address] [place] [id number] GUDELIA HERNANDEZ Start: 12-02-2024 Hospital admission [facility] Start: 12-02-2024 [facility] Start: 11-30-2024 Bacteria identified in Urine by Culture Urine Culture [facility] Start: 11-30-2024 End: 11-30-2024 Urine culture [facility] Start: 11-20-2024 End: 12-21-2024 Alpha fetoprotein, maternal Alpha fetoprotein, maternal Lab Routine Need for maternal serum alpha-protein (MSAFP) screening ([facility]) Expected: 11/20/2024 (Approximate), Expires: 12/21/2024 [facility] Comment on above: Expected: 11/20/2024 (Approximate), Expi res: 12/21/2024 Start: 11-20-2024 End: 02-20-2025 US for US OB 14+ weeks anatomy scan Imaging Routine Screening, , for anatomic survey ([facility]) Expected: 11/20/2024 (Approximate), Expires: 02/20/2025 [facility] Comment on above: Expected: 11/20/2024 (Approximate), Expi res: 02/20/2025 Start: 11-20-2024 End: 11-20-2024 Patient encounter procedure [facility] Comment on above: Arrived Start: 10-22-2024 End: 10-22-2024 Patient encounter procedure 10/22/2024 11:20 AM EDT Routine [facility] [address] [place] [address] Les Martinez DO [address] [place] [address] [facility] Start: 10-18-2024 Bacteria identified in Urine by Culture Urine Culture [facility] Start: 10-18-2024 Genital Culture Genital Culture [facility] Start: 10-18-2024 Urine culture [facility] Start: 10-18-2024 [facility] Start: 09-20-2024 End: 09-20-2025 ABO/Rh ABO/Rh Lab Routine Missed menses , unspecified gestational age Expected: 09/20/2024 (Approximate), Expires: 09/20/2025 [facility] Comment on above: Expected: 09/20/2024 (Approximate), Expi res: 09/20/2025 Start: 09-20-2024 End: 09-20-2025 Blood type and Indirect antibody screen panel - Blood Type and screen Lab Routine Missed menses , unspecified gestational age Expected: 09/20/2024 (Approximate), Expires: 09/20/2025 [facility] Work Phone: Comment on above: Expected: 09/20/2024 (Approximate), Expi res: 09/20/2025 Start: 09-20-2024 End: 09-20-2025 Drugs of abuse panel - Urine by Screen method Rapid drug screen, urine Lab Routine , unspecified gestational age Encounter for supervision of normal first in first trimester Expected: 09/20/2024 (Approximate), Expires: 09/20/2025 [facility] Comment on above: Expected: 09/20/2024 (Approximate), Expi res: 09/20/2025 Start: 09-13-2024 End: 09-13-2024 ambulatory 09/13/2024 2:30 PM EDT Initial [facility] [address] [facility] [place] [address] [facility] Start: 09-13-2024 End: 09-13-2024 Professional / ancillary services management 09/13/2024 2:00 PM EDT Ancillary Procedure [facility] [address] [facility] [place] [address] [facility] Start: 09-03-2024 End: 09-03-2024 Nursing evaluation of patient and report [facility] Endocrinology [facility] Comment on above: scan ob scan, non ivf Start: 08-22-2024 End: 08-22-2025 25-hydroxyvitamin D3 [Mass/volume] in Serum or Plasma Vitamin D 25 hydroxy Lab Routine H/O gastric bypass Vitamin D deficiency Expected: 08/22/2024 (Approximate), Expires: 08/22/2025 [facility] Comment on above: Expected: 08/22/2024 (Approximate), Expi res: 08/22/2025 Start: 08-22-2024 End: 08-22-2025 Cobalamin (Vitamin B12) [Mass/volume] in Serum or Plasma Vitamin B12 Lab Routine H/O gastric bypass Expected: 08/22/2024 (Approximate), Expires: 08/22/2025 [facility] Comment on above: Expected: 08/22/2024 (Approximate), Expi res: 08/22/2025 Start: 08-22-2024 End: 08-22-2025 Thiamine (aka Vitamin B1) Thiamine (aka Vitamin B1) Lab Routine H/O gastric bypass Expected: 08/22/2024 (Approximate), Expires: 08/22/2025 [facility] Comment on above: Expected: 08/22/2024 (Approximate), Expi res: 08/22/2025 Start: 08-22-2024 End: 08-22-2025 Thyrotropin [Units/volume] in Serum or Plasma TSH Lab Routine Abnormal thyroid function test Expected: 08/22/2024 (Approximate), Expires: 08/22/2025 [facility] Comment on above: Expected: 08/22/2024 (Approximate), Expi res: 08/22/2025 Start: 08-22-2024 End: 08-22-2025 Thyroxine (T4) free [Mass/volume] in Serum or Plasma T4, free Lab Routine Abnormal thyroid function test Expected: 08/22/2024 (Approximate), Expires: 08/22/2025 [facility] Comment on above: Expected: 08/22/2024 (Approximate), Expi res: 08/22/2025 Start: 08-22-2024 End: 08-22-2025 Triiodothyronine (T3) Free [Mass/volume] in Serum or Plasma T3, free Lab Routine Abnormal thyroid function test Expected: 08/22/2024 (Approximate), Expires: 08/22/2025 [facility] Work Phone: Comment on above: Expected: 08/22/2024 (Approximate), Expi res: 08/22/2025 Start: 08-22-2024 End: 08-22-2024 Patient encounter procedure 08/22/2024 10:00 AM EDT Office Visit [facility] ENDOCR[facility]OLOG[facility] [address] [place] [phone] Darleen Sinclair MD [address] [place] [address] Arrived [facility] Comment on above: Arrived Start: 08-20-2024 End: 08-20-2025 OBSTETRIC ULTRASOUND WHI OBSTETRIC ULTRASOUND WHI Anc Imaging Routine 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) Expected: 08/20/2024, Expires: 08/20/2025 [facility] Work Phone: Comment on above: Expected: 08/20/2024, Expires: Start: 08-20-2024 End: 08-20-2024 ambulatory 08/20/2024 8:[address] [facility] Reproductive Endocrinology Infertility [address] [place] [address] Shelly Hernandez APRN.[employer] [address] [place] [address] preg appt Reproductive Endocrinology Infertility Comment on above: preg appt Start: 07-07-2024 End: 07-07-2024 Patient encounter procedure [facility] Comment on above: donor thaw iui d Start: 05-09-2024 End: 05-09-2024 ambulatory 05/09/2024 8:00 AM [facility] Reproductive Endocrinology Infertility [address] [place] [address] Shelly Hernandez APRN.[employer] [address] [place] [address] donor sperm teach [facility]roductive Endocrinology [facility]ertility Comment on above: donor sperm teach Start: 04-26-2024 Patient referral [facility] Work Phone: Start: 03-11-2024 End: 06-10-2024 25-hydroxyvitamin D3 [Mass/volume] in Serum or Plasma VITAMIN D 25 HYDROXY Lab Routine Reproductive mgmt, 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 Expected: 03/11/2024, Expires: 06/10/2024 [facility] Comment on above: Expected: 03/11/2024, Expires: Start: 03-11-2024 End: 06-10-2024 CARRIER SCREEN, EXPANDED CARRIER SCREEN, EXPANDED Lab Routine Encounter for other genetic testing of female for procreative management Expected: 03/11/2024, Expires: 06/10/2024 [facility] Comment on above: Expected: 03/11/2024, Expires: Start: 03-11-2024 End: 06-10-2024 Chlamydia trachomatis+Neisseria gonorrhoeae DNA [Presence] in Unspecified specimen by AC with probe detection GONORRHEA/CHLAMYDIA NAAT Lab Routine Special screening examination for infectious diseases Expected: 03/11/2024, Expires: 06/10/2024 [facility] Comment on above: Expected: 03/11/2024, Expires: Start: 03-11-2024 End: 06-10-2024 Cytomegalovirus IgG Ab [Units/volume] in Serum or Plasma CMV IGG ANTIBODY BL Lab Routine Special screening examination for infectious diseases Expected: 03/11/2024, Expires: 06/10/2024 [facility] Comment on above: Expected: 03/11/2024, Expires: Start: 03-11-2024 End: 06-10-2024 Cytomegalovirus IgM Ab [Units/volume] in Serum or Plasma CMV IGM AB Lab Routine Special screening examination for infectious diseases Expected: 03/11/2024, Expires: 06/10/2024 [facility] Comment on above: Expected: 03/11/2024, Expires: Start: 03-11-2024 End: 06-10-2024 Hemoglobin A1c in Blood HEMOGLOBIN A1C Lab Routine Reproductive mgmt, 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 Expected: 03/11/2024, Expires: 06/10/2024 [facility] Comment on above: Expected: 03/11/2024, Expires: Start: 03-11-2024 End: 06-10-2024 Hepatitis B virus core Ab [Presence] in Serum HEPATITIS B CORE ANTIBODY TOTAL Lab Routine Special screening examination for infectious diseases Expected: 03/11/2024, Expires: 06/10/2024 [facility] Comment on above: Expected: 03/11/2024, Expires: Start: 03-11-2024 End: 06-10-2024 Hepatitis B virus surface Ag [Presence] in Serum HEPATITIS B SURFACE ANTIGEN Lab Routine Special screening examination for infectious diseases Expected: 03/11/2024, Expires: 06/10/2024 [facility] Comment on above: Expected: 03/11/2024, Expires: Start: 03-11-2024 End: 06-10-2024 Hepatitis C virus Ab [Presence] in Serum HEPATITIS C ANTIBODY IA WITH CONFIRMATION Lab Routine Special screening examination for infectious diseases Expected: 03/11/2024, Expires: 06/10/2024 [facility] Comment on above: Expected: 03/11/2024, Expires: Start: 03-11-2024 End: 06-10-2024 HIV 1+2 Ab [Presence] in Serum or Plasma by Immunoassay HIV 1/2 COMBO WITH REFLEX TO DIFFERENTIATION Lab Routine Special screening examination for infectious diseases Expected: 03/11/2024, Expires: 06/10/2024 [facility] Comment on above: Expected: 03/11/2024, Expires: Start: 03-11-2024 End: 06-10-2024 RUBELLA IGG ANTIBODY RUBELLA IGG ANTIBODY Lab Routine Special screening examination for infectious diseases Expected: 03/11/2024, Expires: 06/10/2024 [facility] Comment on above: Expected: 03/11/2024, Expires: Start: 03-11-2024 End: 06-10-2024 SYPHILIS TREPONEMAL W/REFLEX SYPHILIS TREPONEMAL W/REFLEX Lab Routine Special screening examination for infectious diseases Expected: 03/11/2024, Expires: 06/10/2024 [facility] Comment on above: Expected: 03/11/2024, Expires: Start: 03-11-2024 End: 06-10-2024 TYPE + SCREEN TYPE + SCREEN Blood Bank Routine Reproductive mgmt, 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 Expected: 03/11/2024, Expires: 06/10/2024 [facility] Comment on above: Expected: 03/11/2024, Expires: Start: 03-11-2024 End: 06-10-2024 VARICELLA ZOSTER IGG VARICELLA ZOSTER IGG Lab Routine Special screening examination for infectious diseases Expected: 03/11/2024, Expires: 06/10/2024 [facility] Work Phone: Comment on above: Expected: 03/11/2024, Expires: Start: 03-09-2024 End: 03-09-2024 ambulatory 03/09/2024 10:00 AM [facility] Reproductive Endocrinology Infertility [address] [place] [address] Shelly Hernandez APRN.[employer] [address] [place] [address] Donor sperm teach Reproductive Endocrinology Infertility Comment on above: Donor sperm teach Start: 02-20-2024 End: 02-20-2024 Patient encounter procedure 02/20/2024 2:50 PM EST Office Visit [facility] [address] [facility] [place] [address] Les Martinez DO [address] [address] Arrived [facility] Comment on above: Arrived Start: 12-18-2023 Covid-19 Vaccine ( season) Covid-19 Vaccine () [facility] Start: 12-18-2023 Covid-19 Vaccine () Covid-19 Vaccine () [facility] Start: 12-18-2023 Influenza vaccination Influenza Vaccine (#1) [facility] Start: 12-07-2023 End: 12-07-2023 [facility] Start: 06-15-2022 [facility] Start: 06-14-2022 [facility] Start: 06-13-2022 [facility] Start: 06-12-2022 [facility] Start: 06-11-2022 End: 06-11-2022 [facility] Start: 06-10-2022 Hospital admission [facility] Start: 06-10-2022 [facility] Start: 06-10-2022 [facility] Start: 06-09-2022 [facility] Start: 04-21-2022 Bacteria identified in Urine by Culture Urine Culture [facility] Start: 04-10-2022 Bacteria identified in Urine by Culture Urine Culture [facility] Start: 05-16-2020 End: 05-16-2020 Office Visit 05/16/2020 Office Visit Bariatrics Rashard Olivera DO [address] [facility] [address] [place] [phone] Camille Linton Invasive Bariatric Surg Start: 05-06-2020 End: 05-06-2020 Hospital Encounter [facility] Comment on above: XI LAPAROSCOPIC ROBOTIC GASTRIC BYPASS R OUX-EN-Y, LIVER BIOPSY, EGD- GI UNIT SCHEDULED. Start: 05-02-2020 End: 05-01-2021 COVID-19 COVID-19 Lab Routine Pre-op testing Expected: 05/02/2020, Expires: 05/01/2021 [place], [place] Comment on above: Expected: 05/02/2020, Expires: Start: 05-02-2020 End: 05-02-2020 Office Visit [facility] Invasive Bariatric Surg Start: 01-11-2020 TSH Qn TSH testing [place], [place] Start: 12-18-2019 Influenza vaccination Flu vaccine (#1) [place] Start: 2016 Screening for malignant neoplasm of cervix [facility] Start: 2014 DTaP,Tdap and Td Vaccines (1 - Tdap) DTaP,Tdap and Td Vaccines (1 - Tdap) [facility] Start: 2014 DTaP/Tdap/Td vaccine (1 - Tdap) DTaP/Tdap/Td vaccine (1 - Tdap) [place] Start: 2014 Hepatitis B Vaccine (1 of 3 - 19+ 3-dose series) Hepatitis B Vaccine (1 of 3 - 19+ 3-dose series) [facility] Start: 2014 Hepatitis B Vaccines (1 of 3 - 19+ 3-dose series) Hepatitis B Vaccines (1 of 3 - 19+ 3-dose series) [facility] Start: 2014 Urine microalbumin profile DTaP,Tdap,Td Vaccine (1 - Tdap) [facility] Start: 2013 Adult BMI Follow Up Plan Adult BMI Follow Up Plan [facility] Start: 2013 Adult BMI Screening Adult BMI Screening [facility] Start: 2013 Anxiety Screening Anxiety Screening [facility] Start: 2013 Depression Screening Depression Screening [facility] Start: 2013 Hepatitis C screening Hepatitis C Screening [facility] Start: 2013 HIV screening HIV Screening [facility] Start: 2010 HIV screening HIV screen [place], [place] Start: 2008 Varicella vaccination Varicella Vaccines (1 of 2 - 13+ 2-dose series) [facility] Start: 2007 Depression Screening Depression Screening [facility] Start: 2007 Tobacco Screening Tobacco Screening [facility] Start: 2006 HPV vaccine (1 - 2-dose series) HPV vaccine (1 - 2-dose series) [place] Start: 1996 MMR Vaccines (1 of 1 - Standard series) MMR Vaccines (1 of 1 - Standard series) [facility] Start: 1996 Varicella vaccine (1 of 2 - 2-dose childhood series) Varicella vaccine (1 of 2 - 2-dose childhood series) [place] Start: 1995 Hepatitis C screening Hepatitis C screen [place] Start: 1995 HIV screening HIV Screening [facility] Start: 1995 Lipid panel Lipid Panel [facility] Start: 1995 Yearly Adult Physical Yearly Adult Physical [facility] aPTT in Platelet poo r plasma by Coagulation assay [facility] Bacteria identified in Genital specimen by Aerobe culture [facility] Bacteria identified in Urine by Culture Urine culture Microbiology Routine Missed menses Ordered: 09/20/2024 [facility] Comment on above: Ordered: 09/20/2024 Calcitriol [Mass/vol ume] in Serum or Plasma [facility] CBC W Auto Different ial panel - Blood CBC and differential Lab Routine Missed menses , unspecified gestational age Ordered: 09/20/2024 [facility] Comment on above: Ordered: 09/20/2024 CHLAMYDIA TRACHOMATI S (GENITO/STI) CHLAMYDIA TRACHOMATIS (GENITO/STI) Lab Routine Exposure to STD Ordered: 11/20/2024 [facility] Comment on above: Ordered: 11/20/2024 Continuous pulse oximetry Pulse oximetry, continuous Respiratory Care Routine Every 4hr until discontinued starting 05/06/2020 [place] Comment on above: Every 4hr until discontinued starting CT Abdomen and Pelvi s WO and W contrast IV [facility] Cytology Cervical or vaginal smear or scraping study Pap Smear Pathology and Cytology Routine Well woman exam with routine gynecological exam Ordered: 02/20/2024 [facility] Work Phone: Comment on above: Ordered: 02/20/2024 Electromyography [facility] F5 gene mutations fo und [Identifier] in Blood or Tissue by Molecular genetics method Nominal [facility] Factor VIII: C assay [facility] Glucose measurement estimated from glycated hemoglobin [facility] Hemoglobin A1c/Hemoglobin.total in Blood [facility] Hemoglobin A1c/Hemoglobin.total in Blood Hemoglobin A1c Lab Routine Missed menses , unspecified gestational age Ordered: 09/20/2024 [facility] Comment on above: Ordered: 09/20/2024 Hepatitis B virus priest rface Ag [Presence] in Serum or Plasma by Immunoassay Hepatitis B surface antigen Lab Routine Missed menses , unspecified gestational age Ordered: 09/20/2024 [facility] Comment on above: Ordered: 09/20/2024 Hepatitis C virus Ab [Presence] in Serum or Plasma by Immunoassay Hepatitis C antibody Lab Routine Missed menses , unspecified gestational age Ordered: 09/20/2024 [facility] Comment on above: Ordered: 09/20/2024 HIV-1/HIV-2 antigen/antibody combination immunoassay HIV-1 and HIV-2 antibodies Lab Routine Missed menses , unspecified gestational age Ordered: 09/20/2024 [facility] Comment on above: Ordered: 09/20/2024 INR in Platelet poor plasma by Coagulation assay [facility] Mullerian inhibiting substance [Mass/volume] in Serum or Plasma [facility] Nebulizer therapy HHN Treatment Respiratory Care Routine TID until discontinued starting 05/06/2020 [facility] [place] Comment on above: TID until discontinued starting 05/06/19 21 Neisseria gonorrhoea e DNA [Presence] in Unspecified specimen by AC with probe detection Neisseria gonorrhea DNA probe, direct Lab Routine Exposure to STD Ordered: 11/20/2024 [facility] Comment on above: Ordered: 11/20/2024 Oxygen therapy [[facility] Data Set] Initiate Oxygen Therapy Protocol Respiratory Care Routine Daily until discontinued starting 05/06/2020 [facility] [place] Comment on above: Daily until discontinued starting 2020 Patient Education [facility] Work Phone: Patient referral [facility] Work Phone: Reagin Ab [Presence] in Serum by RPR RPR Lab Routine Missed menses , unspecified gestational age Ordered: 09/20/2024 [facility] Comment on above: Ordered: 09/20/2024 Rubella antibody, IgG Rubella an tibody, IgG Lab Routine Missed menses , unspecified gestational age Ordered: 09/20/2024 [facility] Comment on above: Ordered: 09/20/2024 Spirometry panel Incentive marti metry Respiratory Care Routine Every 2hr while awake until discontinued starting 05/06/2020 [facility] [place] Comment on above: Every 2hr while awake until discontinued starting 05/06/2020 SURESWAB(R) ADVANCED VAGINITIS PLUS, TMA SURESWAB(R) ADVANCED VAGINITIS PLUS, TMA Pathology and Cytology Routine Exposure to STD Ordered: 11/20/2024 [facility] Work Phone: Comment on above: Ordered: 11/20/2024 Surgical Pathology Surgical Path ology Lab Routine Release Upon Ordering for 1 Occurrences starting 05/06/2020 [facility] [place] Comment on above: Release Upon Ordering for 1 Occurrences starting 05/06/2020 End: 11-20-2025 Thyrotropin [Units/volume] in Serum or Plasma TSH Lab Routine Thyroid disease every 4 weeks for 6 Occurrences starting 11/20/2024 until 11/20/2025 [facility] Comment on above: every 4 weeks for 6 Occurrences starting 11/20/2024 until 11/20/2025 Thyrotropin [Units/volume] in Serum or Plasma TSH Lab Routine TSH (thyroid-stimulating hormone deficiency) Ordered: 01/16/2025 [facility] Comment on above: Ordered: 01/16/2025 von Willebrand facto r (vWf) Ag [Units/volume] in Platelet poor plasma [facility] von Willebrand facto r (vWf) multimers in Platelet poor plasma by Immunoblot [facility] von Willebrand facto r (vWf) ristocetin cofactor actual/normal in Platelet poor plasma by Platelet aggregation [facility] Immunizations Immunization Date Immunization Notes Care Provider Fa cility 12-25-2022 tetanus toxoid, reduced diphtheria toxoid, and acellular pertussis vaccine, adsorbed Darleen Sinclair MD Work Phone: [facility] 08-19-2020 COVID-19 mRNA-1273 (Moderna) MELY Amanda Ford Work Phone: [facility] 07-22-2020 COVID-19 mRNA-1273 (Moderna) MELY Patel Logan Work Phone: [facility] Payers Date Payer Category Payer Self-pay [id number] 2022 Medicaid [id number] 2022 Medicaid [id number] 2020 Unknown [id number] 2015 Unknown [id number] [id number] .[id number] 1995 Unknown [id number] 2.16.840.1.198647.3.579.2.176 1995 Unknown [id number] 2.16.840.1.643142.3.579.2.175 1995 Unknown [id number] 2.16.840.1.812970.3.579.2.175 1995 Unknown [id number] 2.16.840.1.000288.3.579.2.175 1995 Unknown [id number] 2.16.840.1.998079.3.579.2.175 1995 Unknown [id number] 2.16.840.1.480733.3.579.2.124 4 1995 Unknown [id number] 2.16.840.1.212804.3.579.2.718 1995 Unknown [id number] 2.16.840.1.009039.3.579.2.718 1995 Unknown [id number] 2.16840.1.888092.3.579.2.718 1995 Unknown [id number] 2.16.840.1.127518.3.579.2.718 1995 Unknown [id number] 2.840.1.435397.3.579.2.71 1995 Unknown [id number] 2.16840.1.257731.3.579.2.718 1995 Unknown [id number] 2.840.1.317237.3.579.2.718 1995 Unknown [id number] 2.840.1.692225.3.579.2.128 6 1995 Unknown [id number] 2.840.1.736643.3.579.2.128 6 1995 Unknown [id number] 2.840.1.814523.3.579.2.128 6 1995 Unknown [id number] 2.840.1.600768.3.579.2.125 9 1995 Unknown [id number] 2.840.1.040187.3.579.2.125 9 1995 Unknown [id number] 840.1.152761.3.579.2.125 9 1995 Unknown [id number] 2.840.1.447369.3.579.2.125 9 1995 Unknown [id number] 2.16840.1.113043.3.579.2.125 9 1995 Unknown [id number] 2.16840.1.284257.3.579.2.125 9 1995 Unknown [id number] 2.840.1.068215.3.579.2.125 9 1995 Unknown [id number] 2.16840.1.077165.3.579.2.125 9 1995 Unknown [id number] 2.16.840.1.486695.3.579.2.125 9 Private Health Insurance [facility] [id number] Unknown [id number] 2.16.840.1.821916.19 Unknown [id number] 2.16.840.1.224703.3.579.2.531 Unknown [id number] 2.16.840.1.846757.3.579.2.531 Unknown [id number] 2.16.840.1.922328.3.579.2.531 Social History Date Type Detail Facility Start: 04-22-2020 End: 06-08-2023 Tobacco smoking status KSIS Never smoker [place] Start: 04-22-2020 End: 11-28-2023 Tobacco use and exposure Never used [place] Start: 04-22-2020 End: 05-02-2020 Alcohol intake Current non-drinker of alcohol (finding) [place] Start: 1995 Sex Assigned At Not on file [place] Exposure to SARS-CoV-2 (event) Not sure [place] Tobacco smoking status Never [facility] Start: 11-28-2023 End: 02-20-2024 Sex Assigned At Female [employer] Other Start: 1995 Sex Assigned At Female [facility] Start: 06-10-2022 Tobacco smoking status NHIS Current some day smoker [facility] Start: 04-18-2023 End: 12-07-2023 Tobacco smoking status NHIS Smoker (finding) [facility] Start: 11-28-2023 End: 10-26-2024 Tobacco smoking status KSIS Smokes tobacco daily [facility] Start: 04-18-2023 History of tobacco use Cigarette Smoker [facility] Start: 11-28-2023 End: 02-20-2024 Cigarettes smoked current (pack per day) - Reported 0.5 [facility] Start: 11-28-2023 End: 01-16-2025 Alcoholic beverage intake Ex-drinker (finding) [facility] Start: 01-10-2023 Alcohol Comment caffeine: 1-2 cups per day tea [facility] Start: 01-19-2023 Gender identity Identifies as female gender (finding) [facility] Start: 11-21-2014 End: 02-27-2024 Sex Female (finding) [facility] Tobacco smoking status [facility] Tobacco smoking consumption unknown [facility] Start: 08-01-2023 [facility] Start: 10-18-2024 End: 12-05-2024 Tobacco smoking status NHIS Ex-smoker (finding) [facility] NEGATED: Highlighted row [facility] Medical Equipment Procedure Code Equipment Code Equipment [...] FDA Start: 10-15-2019 Tendon/ligament bone anchor, non-bioabsorbable [id number] FDA Start: 12-07-2023 Tendon/ligament bone anchor, non-bioabsorbable ()[id number] FDA Start: 12-07-2023 Tendon/ligament bone anchor, non-bioabsorbable ()[id number] FDA Start: 12-07-2023 Tendon/ligament bone anchor, non-bioabsorbable ()[id number] FDA Start: 12-07-2023 Goals Date Patient Goal Desired Activity /State Personal health goal Functional Status Date Assessment Result Facility 06-11-2022 Functional status Patient at Baseline [facility] Work Phone: 06-10-2022 Functional status Patient at Baseline [facility] Work Phone: Mental Status Date Assessment Result Facility 06-11-2022 Cognitive function Cognitive Sta tus Patient at Baseline [facility] Work Phone: 06-10-2022 Cognitive function Cognitive Sta tus Patient at Baseline [facility] Work Phone: Clinical Notes 07-16-2021 to 01-16-2025 Viry Duenas NP - 01/16/2025 11:20 AM EDTTelephone Encounter - Roslyn Griffin RN - 01/03/2025 3:44 PM EDTTelephone Encounter - Roslyn Griffin RN - 01/03/2025 3:44 PM EDTPatient Instructions Note Date & Type Note Facility 01-16-2025 History of Present illness Narrative Reason for [...] nursing note reviewed. Exam conducted with a emulsification operator present. Vitals: Estimated body mass index is 38.49 kg/m as calculated from the following: Height as of 08/22/24: 5' 11 . Weight as of this encounter: 276 lb. BP: 122/80 No LMP recorded. Patient is . ASSESSMENT & PLAN ICD-10-CM 1. 26 weeks gestation of ([facility]) Z3A.26 POCT urinalysis dipstick manually resulted 2. Second trimester ([facility]) Z34.92 3. TSH (thyroid-stimulating hormone deficiency) E03.8 [...] week for routine OB appointment. Documented by Viry Duenas NP on behalf of: Viry Duenas NP documented in this encounter [facility] 01-03-2025 Miscellaneous Notes Called patient to schedule her follow up survey in 4-6 weeks per appointment tracker. No answer left message to call back to schedule the follow up ultrasound. documented in this encounter [facility] 01-03-2025 Telephone encounter Note Called patient to schedule her follow up survey in 4-6 weeks per appointment tracker. No answer left message to call back to schedule the follow up ultrasound. [facility] 12-19-2024 History of Present illness Narrative Reason [...] Obesity Mother Julieta velarde Thyroid disease Mother Jluieta velarde Diabetes Father Delbert velarde Thyroid disease [...] PLAN ICD-10-CM 1. 22 weeks gestation of ([facility]) Z3A.22 POCT urinalysis dipstick manually resulted 2. Second trimester ([facility]) Z34.92 POCT urinalysis dipstick manually resulted [...] of: MELVI Engle documented in this encounter [facility] 12-05-2024 History of Present illness Narrative [...] follows with the behavioral health up in [place] History of migraines. Has been getting some [...] (attention deficit disorder) Anemia Bipolar 1 disorder ([facility]) Disease of thyroid gland GERD (gastroesophageal reflux disease) Pee's thyroiditis Hx of iron deficiency anemia [place] product of in vitro fertilization (IVF) Ovarian [...] mouth in the morning., Disp: , Rfl: [id number] acid ( 19) 29 mg iron- 1 [...] Calcium: recommend 1000-1200mg daily; if deficient, recommend 6388-2441 mg PO daily in divided doses Vitamin [...] 5. 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 The assistive technology trainer should be made aware at the time [...] Latricia Lindquist MD, FACOG (she/hers) Maternal- Medicine [facility] [address] [place] [address] This document was created with Tunes[employer] technology. Though I make every effort to review the dictation as it is transcribed, on occasion the spoken word can be misinterpreted by the technology leading to inappropriate words, phrases, or sentences. This note is addressed to the requesting provider as a consultation for clinical guidance. Specific medical abbreviations are occasionally used and those are generally approved by the [place]?Board of?Obstetrics and?Gynecology?as well as?Eure s abbreviations. The above plan of care was based solely on the diagnoses for which a consultation was requested. ?More frequent testing may be indicated based on her other medical/obstetrical conditions. The management of other or medical conditions is beyond the scope of requested consultation and will continue to be followed by the primary floor and wall applier liquid or primary care provider. Note to patient: [...] CF Have you been seen here at [facility] in a previous ? NA Recent ER visits or hospitalizations? See notes above Bring blood sugar log or meter with you today? (Please bring them with you for every visit at [facility]) NA Flu vaccine (Feb-June)? NA Any concerns that you would like me to mention to the provider today? Questions about glucose testing and her having gastric bypass surgery [facility] History of Present illness Narrative Reason for Appointment: Patient ID: Jaz aSnders is a 29 y.o. female who presents [...] nursing note reviewed. Exam conducted with a emulsification operator present. Vitals: Estimated body mass index is [...] gonorrhea DNA probe, direct 3. Second trimester ([facility]) Z34.92 POCT urinalysis dipstick manually resulted 4. 18 weeks gestation of ([facility]) Z3A.18 5. Need for maternal serum alpha-protein (MSAFP) screening ([facility]) Z36.1 Alpha fetoprotein, maternal Alpha fetoprotein, maternal 6. Screening, , for anatomic survey ([facility]) Z36.89 US OB 14+ weeks [...] Les Martinez DO documented in this encounter [facility] 10-22-2024 History of Present illness Narrative [...] nursing note reviewed. Exam conducted with a emulsification operator present. Vitals: Estimated body mass index is 31.24 kg/m as calculated from the following: Height as of 08/22/24: 5' 11 . Weight as of this encounter: 224 lb. BP: 110/62 No LMP recorded. Patient is . ASSESSMENT & PLAN ICD-10-CM 1. 13 weeks gestation of ([facility]) Z3A.13 POCT urinalysis dipstick manually resulted 2. Second trimester ([facility]) Z34.92 POCT urinalysis dipstick manually resulted 3. Thyroid disease E07.9 4. H/O gastric sleeve Z90.3 5. H/O iron deficiency anemia Z86.2 6. resulting from in vitro fertilization in first trimester ([facility]) O09.811 Return OB: Patient presents [...] will make referral to M. Documented by Viry Duenas NP on behalf of: Les Martinez DO documented in this encounter [facility] 10-18-2024 Radiology Diagnostic study note [facility] Main [place] [address] [place] [address] Ultrasound Report Signed Patient: Jaz Sanders MR#: [id number] : 1995 Acct:[id number] Age/Sex: 29 / F ADM Date: 5 Loc: ER Room: Type: [facility] ER Attending Dr: Ordering Provider: Kassidy [...] Jr., D.ORenae 10/18/2024 2:21 PM Dictation Location: [facility] Tech: Nataliemanisha Haji Transcribed By: MAITE 10/18/24 1421 Dictated By: Sravan Dickinson Jr, DO 10/18/24 1419 Signed By: 10/18/24 1421 [facility] 09-20-2024 History of Present illness Narrative Reason [...] screen, urine; Future Nurse Note: Patient declined [place] at this time. Patient is an IVF from [facility]. OB Intake: Patient presents today for first OB visit. Patients history has been reviewed in great detail including any potential risks. Patient signed consent forms and patient desires testing in both trimesters. Patient currently has no complaints and has been advised to drink 6-8 glasses of water a day, eat no raw or undercooked meat, and stay away from [facility]. Patient has also been advised to [...] Marsha Asif MA documented in this encounter [facility] 09-05-2024 Note HNO ID: [id number] Author: SHELLY HERNANDEZ APRN.CNP Service: ? Author [...] 3. Cycle Day: Last menstrual period: 07/19/2024 [place] Protocol: UNIVERSAL PROTOCOL / SAFETY CHECKLIST Procedure [...] DATE: September 05, 2024 TIME: 10:45 PM [facility] 09-03-2024 History of Present illness Narrative Jaz Sadners here today for a scan. This is [...] 2024 5:39 PM documented in this encounter [facility] 09-03-2024 Note HNO ID: [id number] Author: CHARISSE WEAVER APRN.CNP Service: ? Author [...] Plan Move on to OB Charisse Weaver APRN.[employer] September 03, 2024 5:39 PM [facility] 08-30-2024 Note HNO ID: [id number] Author: MIKEY TORRES MD Service: ? Author Type: Physician Type: Progress Notes Filed: 08/30/2024 16:36 Note Text: Viable ratliff IUP Size equal Date. Plan: patient to follow up with her ob for care. Stacy Banuelos MD [facility] 08-30-2024 History of Present illness Narrative Viable [...] Shelly Hernandez APRN.CNP documented in this encounter [facility] 08-28-2024 Note HNO ID: [id number] Author: SHELLY HERNANDEZ APRN.CNP Service: ? Author [...] next week as scheduled Shelly Hernandez APRN.CNP [facility] 08-24-2024 Telephone encounter Note spoke with Jaz, [...] schedule the patient for the following- Location: [facility] Provider: nurse Visit type: scan Reason for visit/appointment notes: scan Date: 08/28 Time (requested): 1110 If slot is full, please schedule the closest open slot. Call to patient needed: no [facility] 08-24-2024 Miscellaneous Notes spoke with Jaz, [...] schedule the patient for the following- Location: [facility] Provider: nurse Visit type: scan Reason for visit/appointment notes: scan Date: 08/28 Time (requested): 1110 If slot is full, please schedule the closest open slot. Call to patient needed: no Name: Jaz Sanders called today. : 1995 (home) [phone] (cell) Reason for call: pt called today informing the nurse she has been experiencing pain of level 4 from 1-10. Pt has been experiencing pain for 2 day. 5 weeks today. The patients preferred pharmacy has been captured for this encounter? [facility] documented in this encounter [facility] 08-24-2024 Telephone encounter Note See 08/23/24 LIBBY Ward RN August 24, 2024 1:58 PM [facility] 08-24-2024 Miscellaneous Notes See 08/23/24 LIBBY Ward RN August 24, 2024 1:58 PM Pt would like a call back documented in this encounter [facility] 08-24-2024 Telephone encounter Note Pt would like a call back [facility] 08-23-2024 Telephone encounter Note Name: Jaz Sanders called today. : 1995 (home) [phone] (cell) Reason for call: pt called today informing the nurse she has been experiencing pain of level 4 from 1-10. Pt has been experiencing pain for 2 day. 5 weeks today. The patients preferred pharmacy has been captured for this encounter? Angella Morillo Television Parts Tester [facility] 08-23-2024 Telephone encounter Note See 08/20 Distance health visit Marianna Ward RN August 23, 2024 8:53 AM [facility] 08-23-2024 Miscellaneous Notes See 08/20 Distance health visit Marianna Ward RN August 23, 2024 8:53 AM documented in this encounter [facility] 05-07-2025 History of Present illness Narrative Jaz Sanders is a 29 y.o. female Darleen Sinclair MD presents with chief complaint of Thyroid Problem and Follow-up (1.5 YRS ) HPI: History of Present Illness The patient is a 29-year-old female who presents for a follow-up visit. She was last seen in 03/2023. She continues her regimen of levothyroxine 50 mcg daily, administered in the mobile service rv technician on an empty stomach. There have [...] year (around 08/22/2025). documented in this encounter [facility] 08-20-2024 Note HNO ID: [id number] Author: SHELLY HERNANDEZ APRN.JARROD Service: ? Author [...] visit. Either the patient or their legal direct sales representative has been informed of the risks [...] ([facility]) O09.811 OBSTETRIC ULTRASOUND [facility] Plan: further labwork needed: no scan scheduled: [...] which included preparing to see the patient, abxm-cc-afwp patient care, completing clinical documentation, obtaining and/or [...] grammatical and typographical errors missed in proofreading. [facility] 08-20-2024 History of Present illness Narrative Images [...] visit. Either the patient or their legal direct sales representative has been informed of the risks [...] in first trimester (HCC) O09.811 OBSTETRIC ULTRASOUND [facility] Plan: further labwork needed: no scan scheduled: 09/03 medications to discontinue: patient to discuss status with her providers Schedule with OB: 09/13 Shelly Hernandez APRN.CNP August 20, 2024 8:33 AM Please schedule the patient for the following- Location: [place] Provider: nurse Visit type: Reason for visit/appointment notes: scan Date: 09/03 Time (requested): 1040 If slot is full, please schedule the closest open slot. Call to patient needed: no I spent a total of 30 minutes on the date of the service which included preparing to see the patient, ueuu-lr-fjpv patient care, completing clinical documentation, obtaining and/or [...] missed in proofreading. documented in this encounter [facility] 08-16-2024 Telephone encounter Note Called patient back to phone number listed in UTILICASE-no answer. Lm for patient to look out for Mychart message. Daniel Hanna APRN.CNP August 16, 2024 5:15 PM [facility] 08-16-2024 Miscellaneous Notes Called patient back to phone number listed in UTILICASE-no answer. Lm for patient to look out for Mychart message. Daniel Hanna APRN.[employer] August 16, 2024 5:15 PM Name: Jaz Sanders called today. : 1995 (home) [phone] (cell) Reason for call: pt called that she got positive test, she has been having having cramping since last night , it happens every hours for couple minutes. The patients preferred pharmacy has been captured for this encounter? yes Angella Moralezdad [employer] Tester documented in this encounter [facility] 08-16-2024 Telephone encounter Note Name: Jaz Sanders called today. : 1995 (home) [phone] (cell) Reason for call: pt called that she got positive test, she has been having having cramping since last night , it happens every hours for couple minutes. The patients preferred pharmacy has been captured for this encounter? yes Angella Morillo Television [employer] Tester [facility] 08-15-2024 Telephone encounter Note Pt is preg and wants to know if she can take benadryl due to her having hives [facility] 08-15-2024 Miscellaneous Notes Pt is preg and wants to know if she can take benadryl due to her having hives documented in this encounter [facility] 07-31-2024 Note HNO ID: [id number] Author: DOMINGUEZ BARRY, ? Service: ? Author Type: Parachute Crown Sewer Type: Progress Notes Filed: 09/05/2024 22:45 Note Text: IUI Cryobio Donor # [id number] Pre: frozen washed specimen Post: 82 M/ml, 67% Insem # 27.5 million [facility] 07-31-2024 Note HNO ID: [id number] Author: DOMINGUEZ BARRY, ? Service: ? Author Type: Parachute Crown Sewer Type: Progress Notes Filed: 07/31/2024 15:26 Note Text: Thaw for IUI. Dominguez Barry [facility] 07-31-2024 History of Present illness Narrative Thaw for IUI. Dominguez Barry documented in this encounter [facility] 07-31-2024 Note HNO ID: [id number] Author: DOMINGUZE BARRY, ? Service: ? Author Type: Parachute Crown Sewer Type: Progress Notes Filed: 09/05/2024 22:45 Note Text: IUI specimen released to provider Dominguez Barry July 31, 2024 3:24 PM [facility] 07-31-2024 Note HNO ID: [id number] Author: MUSTAPHA TELLO MA Service: ? Author Type: Agricultural Technician Type: Progress Notes Filed: 07/31/2024 15:12 Note Text: Patient verified by full name and date of . Jaz Sanders is here today for an IUI. LMP: 07/19/2024 Natural cycle IUI Timed With: Ovulation Predictor Kit , Date: 07/30/2024 Escort Service Attendant offered: Patient declines Mustapha Tello MA July 31, 2024 3:12 PM [facility] 07-30-2024 Telephone encounter Note patient's OPK today was dark but not positive Plan: test again tomorrow. 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, schedule IUI the same day Shelly Hernandez APRN.CNP July 30, 2024 6:00 PM [facility] 07-30-2024 Miscellaneous Notes patient's OPK today was dark but not positive Plan: test again tomorrow. 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, schedule IUI the same day Shelly Hernandez APRN.CNP July 30, 2024 6:00 PM N- ivf Pt has questions regarding IUI documented in this encounter [facility] 07-30-2024 Telephone encounter Note N- ivf Pt has questions regarding IUI [facility] 07-08-2024 Note HNO ID: [id number] Author: NICHELLE GONZALEZ, ? Service: ? Author Type: Parachute Crown Sewer Type: Progress Notes Filed: 07/19/2024 07:50 Note Text: IUI Cryobio #[id number] Washed frozen specimen Post: 31 m/ml, 77% Insem#: 10.8 million [facility] 07-08-2024 History of Present illness Narrative IUI Cryobio #[id number] Washed frozen specimen Post: 31 m/ml, 77% Insem#: 10.8 million IUI specimen released to provider Nichelle Gonzalez July 07, 2024 10:10 AM documented in this encounter [facility] 07-07-2024 Note HNO ID: [id number] Author: NICHELLE GONZALEZ, ? Service: ? Author Type: Parachute Crown Sewer Type: Progress Notes Filed: 07/19/2024 07:50 Note Text: IUI specimen released to provider Nichelle Gonzalez July 07, 2024 10:10 AM [facility] 07-07-2024 Note HNO ID: [id number] Author: MIKEY TORRES MD Service: ? Author [...] Cycle Day: 14 Last menstrual period: 06/24/2024 [place] Protocol: UNIVERSAL PROTOCOL / SAFETY CHECKLIST Procedure [facility] [place] 07-07[facility] Procedure note WHI JAMEL IUI PROCEDURE NOTE Date: 07/07/2024 Primary Proceduralist: Nakia Duran MD Consents and Labels Consent Signed: Informed Consent obtained and on the chart Labels Verified With Patient: Yes Indications: Jaz Sanders, is a 29 year old No obstetric history on file. female here today for intrauterine insemination. IUI # 2. Cycle Day: 14 Last menstrual period: 06/24/2024 [place] Protocol: UNIVERSAL PROTOCOL / SAFETY CHECKLIST Procedure [...] primary surgeon/proceduralist with assistance. Stacy Banuelos MD [facility] 07-07-2024 Procedure note I JAMEL IUI PROCEDURE NOTE Date: 07/07/2024 Primary Proceduralist: Nakia Duran MD Consents and Labels Consent Signed: Informed Consent obtained and on the chart Labels Verified With Patient: Yes Indications: Jaz Sanders, is a 29 year old No obstetric history on file. female here today for intrauterine insemination. IUI # 2. Cycle Day: 14 Last menstrual period: 06/24/2024 [place] Protocol: UNIVERSAL PROTOCOL / SAFETY CHECKLIST Procedure [...] Stacy Banuelos MD documented in this encounter [facility] 07-07-2024 Note HNO ID: [id number] Author: NICHELLE GONZALEZ, ? Service: ? Author Type: Parachute Crown Sewer Type: Progress Notes Filed: 07/07/2024 09:41 Note Text: Thaw for IUI Nichelle Gonzalez [facility] 07-07-2024 History of Present illness Narrative Thaw for IUI Nichelle Gonzalez documented in this encounter [facility] 07-06-2024 Telephone encounter Note Called the pt back. Pt had an US done 07/04/24--Possible small 4 mm intracervical canal polyp. No other abnormal findings. Advised to move on with IUI tomorrow. FYI: Dr. Guy and Silvia, VIDEO SYSTEM REPAIRER. Please let me know if any different instructions. Becki Isaacs PA-C July 06, 2024 3:26 PM [facility] 07-06-2024 Miscellaneous Notes Called the pt back. Pt had an US done 07/04/24--Possible small 4 mm intracervical canal polyp. No other abnormal findings. Advised to move on with IUI tomorrow. FYI: Dr. Guy and Silvia, VIDEO SYSTEM REPAIRER. Please let me know if any different instructions. Becki Isaacs PA-C July 06, 2024 3:26 PM Patient states she is calling back unsure about if she is okay to proceed with iui tomorrow. Please call patient. documented in this encounter [facility] 07-06-2024 Telephone encounter Note Patient states she is calling back unsure about if she is okay to proceed with iui tomorrow. Please call patient. [facility] 07-06-2024 Telephone encounter Note See other TE for 07/04 Marianna Ward RN July 06, 2024 11:17 AM [facility] 07-06-2024 Miscellaneous Notes See other TE for 07/04 Marianna Ward RN July 06, 2024 11:17 AM On day 11 now, inquiring about if okay to proceed with iui with cervical polyp. Patient believes it will be tomorr or Tuesday for iui- inquiring if polyp needs to be removed first. documented in this encounter [facility] 07-05-2024 Telephone encounter Note On day 11 now, inquiring about if okay to proceed with iui with cervical polyp. Patient believes it will be tomorrow or Tuesday for iui- inquiring if polyp needs to be removed first. [facility] 07-04-2024 Telephone encounter Note Spoke with [...] Hernandez APRN.CNP July 04, 2024 7:30 PM [facility] 07-04-2024 Miscellaneous Notes Spoke with Jaz [...] 2024 7:30 PM documented in this encounter [facility] 07-04-2024 Note HNO ID: [id number] Author: INGACIO GUY MD Service: ? Author Type: Physician Type: Progress Notes Filed: 07/04/2024 16:27 Note Text: 1 [facility] 07-04-2024 History of Present illness Narrative 1 documented in this encounter [facility] 06-09-2024 Note HNO ID: [id number] Author: IGNACIO GUY MD Service: ? Author [...] Cycle Day: 13 Last menstrual period: 05/28/2024 [place] Protocol: UNIVERSAL PROTOCOL / SAFETY CHECKLIST Procedure [...] was discussed with the patient or authorized direct sales representative. The patient or authorized direct sales representative has agreed to proceed with the sensitive examination. (Sensitive examination includes inspection and/or palpation of the breasts, pelvis, prostate and anorectal regions) Patient declined emulsification operator. Vidhi Sheldon MD IUI IUI Date: 06/09/24 [...] stopped. Will get pelivc scan here at [facility] if not with this IUI prior pt proceeding with another attmept at IUI. Ignacio Guy MD June 09, 2024 12:30 PM SIGNATURE: Vidhi Sheldon MD PATIENT NAME: Jaz Sanders DATE: June 09, 2024 TIME: 12:01 PM [facility] 06-09-2024 Procedure note WHI JAMEL IUI PROCEDURE NOTE Date: 06/09/2024 Primary Proceduralist: Vidhi Sheldon MD Consents and Labels Consent Signed: Informed Consent obtained and on the chart Labels Verified With Patient: Yes Indications: Jaz Sanders, is a 29 year old No obstetric history on file. female here today for intrauterine insemination. IUI # 1. Cycle Day: 13 Last menstrual period: 05/28/2024 [place] Protocol: UNIVERSAL PROTOCOL / SAFETY CHECKLIST Procedure [...] was discussed with the patient or authorized direct sales representative. The patient or authorized direct sales representative has agreed to proceed with the sensitive examination. (Sensitive examination includes inspection and/or palpation of the breasts, pelvis, prostate and anorectal regions) Patient declined emulsification operator. Vdihi Sheldon MD IUI IUI Date: 06/09/24 Partner's [...] stopped. Will get pelivc scan here at [facility] if not with this IUI prior pt proceeding with another attmept at IUI. Ignacio Guy MD June 09, 2024 12:30 PM SIGNATURE: Vidhi Sheldon MD PATIENT NAME: Jaz Sanders DATE: June 09, 2024 TIME: 12:01 PM [facility] Work Phone: 06-09-2024 Procedure note WHI [...] Cycle Day: 13 Last menstrual period: 05/28/2024 [place] Protocol: UNIVERSAL PROTOCOL / SAFETY CHECKLIST Procedure [...] was discussed with the patient or authorized direct sales representative. The patient or authorized direct sales representative has agreed to proceed with the sensitive examination. (Sensitive examination includes inspection and/or palpation of the breasts, pelvis, prostate and anorectal regions) Patient declined emulsification operator. Vidhi Sheldon MD IUI IUI Date: 06/09/24 [...] stopped. Will get pelivc scan here at [facility] if not with this IUI prior pt proceeding with another attmept at IUI. Ignacio Guy MD June 09, 2024 12:30 PM SIGNATURE: Vidhi Sheldon MD PATIENT NAME: Jaz Sanders DATE: June 09, 2024 TIME: 12:01 PM documented in this encounter [facility] 06-09-2024 Note HNO ID: [id number] Author: NICHELLE GONZALEZ, ? Service: ? Author Type: Parachute Crown Sewer Type: Progress Notes Filed: 06/09/2024 12:30 Note Text: IUI Cryobio #: [id number] Washed frozen sample Post: 42 m/ml, 74% Insem#: 15.5 million [facility] 06-09-2024 History of Present illness Narrative IUI Cryobio #: [id number] Washed frozen sample Post: 42 m/ml, 74% Insem#: 15.5 million IUI specimen released to provider Nichelle Gonzalez June 09, 2024 11:24 AM documented in this encounter [facility] 06-09-2024 Note HNO ID: [id number] Author: MATTHEW GONZALEZHAN, ? Service: ? Author Type: Parachute Crown Sewer Type: Progress Notes Filed: 06/09/2024 11:48 Note Text: Thaw for IUI Nichelle Gonzalez [facility] 06-09-2024 History of Present illness Narrative Thaw for IUI Nichelle Gonzalez documented in this encounter [facility] 06-09-2024 Note HNO ID: [id number] Author: STEFFKIMBERLYNICHELLE, ? Service: ? Author Type: Parachute Crown Sewer Type: Progress Notes Filed: 06/09/2024 12:30 Note Text: IUI specimen released to provider Nichelle Gonzalez June 09, 2024 11:24 AM [facility] 05-09-2024 Instructions Shelly Hernandez, MELY.FINANCE [employer]OUNT[employer] - 05/09/2024 9:08 AM EST Images from the original note were not included. REPRODUCTIVE ENDOCRINOLOGY AND INFERTILITY DONOR SPERM HANDOUT Donor Sperm Checklist: Complete Next Steps: Progesterone blood test 6-8 days after your LH surge - please let me know the test result when you get it. IUI Procedure consent form - sent to you via [employer] today. Please sign when you can. Order sperm Financial Clearance - I sent your chart to the hotel front desk agent today. Treatment plan: Natural cycle/IUI x 3 cycles. Please schedule a follow up visit with Dr. Guy if you are not after 3 cycles. Sperm Ordering Instructions We need 1 vial per cycle. You will likely need 3-6 vials to establish a . You are welcome to buy more than one and store with the [facility]. Mailing address: Attention: Nichelle Gonzalez [address] [place] [address], [address] [place] [address] Storage at the [facility] is available. Fees are yearly and only start once you are not actively trying. Please ask the financial team ([phone]) for current cost information. Donor Insemination Scheduling Instructions Please call during the first business day of your menstrual cycle to let the hotel front desk agent know you will be testing and doing [...] please call the [place] [address] Available every day, including weekends and holidays (except Rogers and New Years.) Weekday IUI scheduling The day you get your LH surge, please call [phone] between 8:00am - 12:00pm to schedule your insemination for the next day. If you call after 12pm, we may not be able to schedule your appointment. IUI s are done by appointment only. You will make 2 appointments -an arrival time and a procedure time. [place]: [address] [place] [address] Available every day, including weekends and holidays (except [place] and New Years.) Available for IUI using fresh and frozen samples. Check in location for sperm wash and IUI: [address] [facility]. The sperm wash takes 60-90 minutes. Weekend/Holiday [...] want to do another IUI: Call the hotel front desk agent to make sure you are financially cleared. Ask to speak to an SKYLAR to confirm your treatment plan. Important phone number: [phone] documented in this encounter [facility] 05-09-2024 Note HNO ID: [id number] Author: SHELLY HERNANDEZ APRN.CNP Service: ? Author [...] visit. Either the patient or their legal direct sales representative has been informed of the risks [...] negative donor is a carrier of: CFTR, [id number] Vial types available: IUI and ART Considerations when using this donor: IUI vial recommended Green light Plan: Donor Sperm episode/checklist updated Pending checklist items: Progesterone blood test, IUI consent, order sperm Confirmed best vial type to order: IUI Shelly Hernandez APRN.FIN[employer]NSH[employer] May 09, 2024 8:12 AM I spent a total of 60 minutes on the date of the service which included preparing to see the patient, uqjp-yn-jfin patient care, completing clinical documentation, obtaining and/or [...] team. Standard se (more content not included)... [facility] 05-09-2024 History of Present illness Narrative Images [...] visit. Either the patient or their legal direct sales representative has been informed of the risks and benefits of -- and alternatives to -- treatment through a remote evaluation and consents to proceed with the evaluation remotely. Reason for visit: donor sperm follow up MARCUS Jaz () and Sravan present for donor [...] negative donor is a carrier of: CFTR, [id number] Vial types available: IUI and ART Considerations [...] which included preparing to see the patient, lidg-vl-fqxn patient care, completing clinical documentation, obtaining and/or [...] missed in proofreading. documented in this encounter [facility] 05-02-2024 History of Present illness Narrative Psychosocial Consultation for Third Democrat Reproduction Virtual visit with audio and visual equipment POS 10 No SI, Falls, Tobacco use On May 02, 2024, I met virtually with Jaz and Sravan Sanders. They were referred by Shelly Hernandez at [facility] for their required psychosocial consultation regarding third republican reproduction. Relevant History Jaz, 29, and Demetrius, 26, have been together for 8.5 years and for 6.5 years. 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 Demetrius also works at that [employer] station. The couple has been trying to [...] Lynda's have already chosen a donor from [facility] in [place]. They chose this donor because he is [...] republican reproductive option. documented in this encounter [facility] Work Phone: 03-11-2024 Note HNO ID: [id number] Author: SHELLY HERNANDEZ APRN.FINANCE ACCOUNTING INTERNSHIP Service: ? Author Type: Nurse Practitioner Type: [...] visit. Either the patient or their legal direct sales representative has been informed of the risks [...] Practice cycle Plan: Episode created.Reviewed checklist - N4MDt message sent Practice cycle: recommended OPKs to test for ovulation and timing of IUIs, patient to call with +OPK, confirm ovulation with progesterone level Follow up once checklist is complete to discuss test results and next steps. Shelly Hernandez APRN.FINANCE ACCOUNTING INTERNSHIP March 11, 2024 10:42 PM I spent a total of 55 minutes on the date of the service which included preparing to see the patient, dtel-ut-semz patient care, completing clinical documentation, obtaining and/or [...] grammatical and typographical errors missed in proofreading. [facility] 03-11-2024 History of Present illness Narrative Images [...] visit. Either the patient or their legal direct sales representative has been informed of the risks [...] Practice cycle Plan: Episode created.Reviewed checklist - N4MDt message sent Practice cycle: recommended OPKs to test for ovulation and timing of IUIs, patient to call with +OPK, confirm ovulation with progesterone level Follow up once checklist is complete to discuss test results and next steps. Shelly Hernandez APRN.FINANCE ACCOUNTING INTERNSHIP March 11, 2024 10:42 PM I spent a total of 55 minutes on the date of the service which included preparing to see the patient, fmnq-qn-fiba patient care, completing clinical documentation, obtaining and/or [...] missed in proofreading. documented in this encounter [facility] 03-09-2024 Instructions Shelly Hernandez APRN.CNP - [...] please call the office. ~Silvia Hernandez APRN.CNP [phone] Donor Sperm Checklist Donor Sperm Labs Mandatory [...] Sravan must be present Amanda Gillespie MD ([place]) - [phone] Rani Sims (Filomena Hernandez) - [phone] - virtual visit Saúl Enriquez, - virtual [...] to date). Please get scheduled with your automotive general sales manager or pcp if needed. Practice with Ovulation Predictor Kit (OPK) First day of full flow is cycle day #1. Start using on ovulation predictor kit on cycle day 10. Use your OPK once a day, in the morning with your second urine of the day. Send in a [employer] message when you get a positive OPK. [...] Once your checklist is complete, please call [phone] to get scheduled for a donor sperm follow up appointment. Sperm Bank Website [place] [facility] [email or web address] [facility] [email or web address]/ [employer] [email or web address] m/ [employer] [facility] [email or web address] [facility] [email or web address]/ [facility] [place] [email or web address] [email or web address] [email or web address] Labs/ [employer] [email or web address] If you would like to start browsing [...] is needed. Test: CPT Code: Blood type 99241 HIV 15621 CMV IgG 10731 CMV IgM 50646 Syphilis 86536 Hepatitis B Surface Ag 16783 Hepatitis B Core Ab, IgG and IgM 46636 Hepatitis C Ab 25190 Rubella 00844 Varicella 32029 Chlamydia 02743 Gonorrhea 34438 For the above tests, reference the diagnosis code of Z11.9 documented in this encounter [facility] 02-28-2024 Plan of care note Assessment- [...] for three cycles. They will meet with VIDEO SYSTEM REPAIRER to review the IUI checklist and sign consents. I spent a total of 45 minutes on the date of the service which included preparing to see the patient, fmxg-dr-ddfd patient care, completing clinical documentation, counseling and educating the patient/family/caregiver, and ordering medications, tests, or procedures. 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 rates discussed and use of meds vs natural cycle was discussed. Given her periods are regular I would recommend timed IUI for martín briones on the HSG for three cycles. They will meet with VIDEO SYSTEM REPAIRER to review the IUI checklist and sign consents. I spent a total of 45 minutes on the date of the service which included preparing to see the patient, dufi-ja-tuse patient care, completing clinical documentation, counseling and educating the patient/family/caregiver, and ordering medications, tests, or procedures. Ignacio Guy MD documented in this encounter [facility] 02-28-2024 Instructions Ignacio Guy MD - 02/28/2024 2:47 PM EST Dear Jaz Sanders Using donor sperm at the [facility] requires some set up (outlined below). Requirements to use donor sperm at the [facility]: Teaching with RECESS. SKYLAR - please call [phone] to schedule a donor sperm teach with [...] to help with the donor selection process. [employer] Carrier Screen is the test ordered. Processing time takes 2-3 weeks. If your insurance doesn't cover it, the self-pay de oliveira is ~$250. Counselor You and your partner/spouse (if applicable) must see a counselor for a donor sperm assessment. Amanda Gillespie MD ([place]) - [phone] Rani Sims ([employer]) - [phone] Doris Lama ([place]) - [phone] Consent form - must be signed by [...] Required Tests Test: CPT Code: Blood type 08190 HIV 54307 CMV IgG 03598 CMV IgM 02835 Syphilis 55664 Hepatitis B Surface Ag 68047 Hepatitis B Core Ab, IgG and IgM 38133 Hepatitis C Ab 81748 Rubella 33751 Varicella 16066 Chlamydia 02707 Gonorrhea 47744 For the above tests, reference the diagnosis code of Z31.49. [employer] F[employer]ight Carrier Screen - [employer] will check coverage for you. For this [...] your test results into consideration. [facility] [place] [facility] [employer] ([facility] [place]) [place] [facility] *Do not order any sperm until your checklist is complete. We will review ordering instructions at your follow up visit. Next Steps: Call insurance to verify coverage for donor sperm panel. Schedule donor sperm teach with my nurse practitioner, Silvia Hernandez. Ignacio Guy MD [phone] documented in this encounter [facility] 02-28-2024 Note HNO ID: [id number] Author: IGNACIO GUY MD Service: ? Author [...] OB History Obstetric History No data available LATEX DIPPER HISTORY: Patient's last menstrual period was 02/18/2024. 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 They will meet with VIDEO SYSTEM REPAIRER to review the IUI checklist and sign consents. I spent a total of 45 minutes on the date of the service which included preparing to see the patient, pfvk-sm-yygp patient care, completing clinical documentation, counseling and educating the patient/family/caregiver, and ordering medications, tests, or procedures. Ignacio Guy MD [facility] 02-28-2024 History of Present illness Narrative Images [...] OB History Obstetric History No data available LATEX DIPPER HISTORY: Patient's last menstrual period was 02/18/2024. 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 They will meet with VIDEO SYSTEM REPAIRER to review the IUI checklist and sign consents. I spent a total of 45 minutes on the date of the service which included preparing to see the patient, mnng-ma-edqn patient care, completing clinical documentation, counseling and educating the patient/family/caregiver, and ordering medications, tests, or procedures. Ignacio Guy MD documented in this encounter [facility] 02-27-2024 Evaluation note Diagnosis Onset Date Resolution Degenerative superior labral laogeqsm-rc-gdvqtidif (SLAP) tear of right matthias acute Novembe [...] Novem wenceslao 2023 2:25pm Degenerative superior labral xjrbmqoc-md-emsklijro (SLAP) tear of right matthias acute April 23, 2024 2:29pm Laxity of ligament acute 2024 2:29pm Multidirectional instability of glenohumeral joint acute April 23, 2024 2:29pm Other instability, right shoulder acute April 23 2:29pm Right carpal tunnel syndrome acute April 23 2:29pm Status post arthroscopy of right shoulder acute April 23, 2 025 2:29pm [facility] Work Phone: 1(802) 930-271911-11-2024 Evaluation note* Diagnosis Onset Date Resolution Status Admit Date Degenerative superior labral jwobeyof-er-fointwesl (SLAP) tear of right matthias acute February [...] Novem wenceslao 2023 2:25pm Degenerative superior labral yudztmcn-wr-ssyepywtb (SLAP) tear of right matthias acute April [...] 8:29am Other chronic pain acute 2024 8:29am [facility] Work Phone: 1(528) 135-401311-04-2024 History of Present illness Narrative* Marsha Asif [...] nursing note reviewed. Exam conducted with a emulsification operator present. Vitals: Estimated body mass index is [...] behalf of: TRENT Engle documented in this [facility] [id number] Note [id number]09-03-2024 Evaluation note* Diagnosis Onset Date Resolution Status Admit Date Degenerative superior labral fcfwdylk-tm-kquufsfby (SLAP) tear of right matthias acute December [...] Septe mber 2023 10:11am Degenerative superior labral poztksfd-yh-vxnolpuvc (SLAP) tear of right matthias acute January 16 11:58am Laxity of ligament acute Octobe r 2023 11:58am Multidirectional instability of glenohumeral joint acute January 11:58am Other instability, right shoulder acute January 16 11:58am Right carpal tunnel syndrome acute January 17, 2024 11:58am Status post arthroscopy of right shoulder acute January 16 11:58am Status post surgery noneactive Octob er 2023 11:58am Degenerative superior labral mazexpeu-vk-ygvrxngat (SLAP) tear of right matthias acute February [...] post surgery noneactive Novem wenceslao 2023 2:25pm [facility] Work Phone: 1(832) 690-711907-17-2024 [employer] Orthopedics Musculoskeletal Pain Musculoskeletal pain [...] mouth or applied to the skin. Take bhga-jpk-pxwxkjn and prescription medicines only as told by [...] provider. Document Revised: 08/07/2020 Document Reviewed: 07/16/2020 [employer] Patient Education ? 2022 [employer] [facility] HospitalAfparuyx07-74-4813 Evaluation note* Encounter Date Diagnosis Assessment Notes Treatment Notes Treatment Clinical Notes Apr, Intertrigo (ICD-10 - L30.4) [facility] Other 01-30-2024 Evaluation note* Encounter Date Diagnosis [...] pain of right shoulder (ICD-10 - M25.511) [facility] Other 01-05-2024 Evaluation note* Encounter Date Diagnosis Assessment Notes Treatment Notes Treatment Clinical Notes Apr, Other iron deficiency anemia (ICD-10 - D50.8) [facility] Other 12-28-2023 Evaluation note* Encounter Date Diagnosis Assessment Notes Treatment Notes Treatment Clinical Notes Mar, Vitamin D deficiency (ICD-10 - E55.9) [facility] Other 10-23-2023 Evaluation note* Encounter Date Diagnosis [...] agreement for this and referral was given. [facility] Other 09-21-2023 Evaluation note* Encounter Date Diagnosis Assessment Notes Treatment Notes Treatment Clinical Notes Dec, Other iron deficiency anemia (ICD-10 - D50.8) Dec, Low folic acid (ICD-10 - E53.8) [facility] Other 09-11-2023 Evaluation note* Encounter Date Diagnosis [...] continue to do the exercises for strength. [facility] Other 07-06-2023 Evaluation note* Encounter Date Diagnosis Assessment Notes Treatment Notes Treatment Clinical Notes Oct, Iron deficiency (ICD-10 - E61.1) [facility] Other 06-26-2023 Evaluation note* Encounter Date Diagnosis [...] symptoms and causing pain down the arm. [facility] Other 06-15-2023 Evaluation note* Encounter Date Diagnosis [...] verbalizes understanding and agrees c tx plan. [facility] Other 05-10-2023 Evaluation note* Encounter Date Diagnosis [...] follow-up if no improvement. She verbalizes understnading. [facility] Other 05-05-2023 Evaluation note* Encounter Date Diagnosis Assessment Notes Treatment Notes Treatment Clinical Notes August, Acquired hypothyroidism (ICD-10 - E03.9) Discussed with pt symptoms and lab resutls. Discussed treatment and evaluation. Referral placed to Dr. Sinclair. 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 Patient has an appointment with her APPLIED PSYCHOLOGY TEACHER next week. Educated her to go to ED if she continues to have heavy bleeding with symptoms, she verbalized understanding. We will send patient home on iron supplements and docusate as needed for constipation Patient is being discharged today. Documented By: Farhad Gallego MD 06/11/22 1306 Signed By: <Electronically signed by Farhad Gallego MD> 06/11/22 1316 [facility] Work Phone: 1(689) 580-643302-23-2023 History and physical note Author Farhad Gallego [facility] June 10, 2022 6:28pm Note Date/Time June 10, 2022 5:39pm [facility] [address] [place] [address] Hospitalist H&P Signed Patient: Jaz Sanders MR#: [id number] : 1995 Acct:[id number] Age/Sex: 27 / F Adm Date: 3 Loc: Room: [address] [place] [address] Type: ADM INOo Attending Dr: Farhad Gallego MD Copies to: MD Amanda Correa, PICTURE HANGER, [employer]~ HPI DATE OF EXAMINATION: 06/10/22 CHIEF COMPLAINT: [...] % (Auto) 41.3 % (.) 06/10/22 14:51 Allen % (Auto) 6.8 % (.) 06/10/22 14:51 Eos % (Auto) 5.0 % (.) 06/10/22 14:51 Baso % (Auto) 1.8 % (.) 06/10/22 14:51 Nucleat RBC Rel Count 0.1 /100 WBC (0-0.5) 06/10/22 14:51 Neut # (Auto) 2.4 x10E3/uL (1.8-7.7) 06/10/22 14:51 Lymph # (Auto) 2.2 x10E3/uL (1.00-4.8) 06/10/22 14:51 Allen # (Auto) 0.4 x10E3/uL (0.0-0.8) 06/10/22 14:51 [...] pH 5.5 (5.0-9.0) 06/10/22 15:40 Ur Specific [place]ley 1.010 (1.001-1.030) 06/10/22 15:40 Urine Protein Negative [...] code Documented By: Farhad Gallego MD 06/10/22 2562 Signed By: <Electronically signed by Farhad Gallego MD> 06/10/22 6871 [facility] Work Phone: 1(202) 147-656701-04-2023 Evaluation note* Encounter Date Diagnosis Assessment Notes [...] for bleeding. Keep appointment with Dr. Elder. 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 And she has discussed this with Julieta and she had offered her treatement for this. [facility] Other 11-30-2022 Evaluation note* Encounter Date Diagnosis Assessment Notes Treatment Notes Treatment Clinical Notes Feb, Gastroesophageal ref lux disease without esophagitis (ICD-10 - K21.9) [facility] Other 10-24-2022 Evaluation note* Encounter Date Diagnosis [...] to trial the ointment. Follow-up as needed. [facility] Other 05-11-2022 NoteEchocardiology Procedure Exam Date/Time Accession # Ordering Echo Transthoracic 08/25/2021 15:36 EDT [id number] Jay DAVEY, Samir Rivera CPT code 06226 Reason for Exam (Echo Transthoracic Complete) Bradycardia;Other [...] Robin Salazar MD Transcribed by: kerry Technologist: [facility]04-21-2022 Note Echocardiology Procedure Exam Date/Time Accession # Ordering ECG Stress Exercise 08/06/2021 10:22 EDT [id number] Jay DAVEY, Samir Rivera CPT code 51111 Reason for Exam (ECG Stress Exercise) bradycardia;Other [...] Robin Salazar MD Transcribed by: nakul Technologist: [facility]03-31-2022 Evaluation note* Encounter Date Diagnosis Assessment [...] school on two different occasions.Order faxed to [employer]. Jun, Gastroesophageal reflux disease without esophagitis (ICD-10 [...] Jun, Former smoker (ICD-1 0 - Z87.891) [facility] [employer] Other Evaluation + Plan note Future Appointments Appointment Date:08/06/2021 09:30:00 AM Scheduled [facility] Type:CV Stress (FT) Appointment Date:08/06/2021 11:00:00 AM Scheduled Provider: [facility] Type:CV Holter/Event (FT) Future Scheduled Tests Radiology* Echo Transthoracic Complete 07/24/21 * ECG Stress Exercise 08/06/21 [facility] Future Appointments Appointment Date:08/11/2021 10:30:00 AM Scheduled Provider:Samir Thompson MD Location[facility] Appointment Type:Cardiology Follow Up (FT) [facility] Future Appointments Appointment Date:09/01/2021 02:30:00 PM Scheduled Provider:Samir Thompson MD Location:.Cardiology [facility] Appointment Type:Cardiology Follow Up (FT) [facility] Future Appointments Appointment Date:2022 11:15:00 AM Scheduled Provider:Samir Thompson MD Location[facility] Appointment Type:Cardiology Follow Up (FT) [facility] noteNo InformationNortEncompass [facility] [employer] Other Evalutugao noteNo assessment information available [facility] Work Phone: evaluation note* Diagnosis Onset Date Resolution Status Anemia acute Anxiety and depression acute Bipolar disorder acute Iron deficiency anemia acute [facility] Work Phone: evaluation note* Diagnosis Onset Date Resolution Status Abdominal pain acute Chills acute Constipation acute Fever acute H/O gastric sleeve acute Vomiting acute [facility] Work Phone: evaluation note* Diagnosis Onset Date Resolution Status [id number] acute Laxity of ligament acute Multidirectional instability of glenohumeral joint acute Numbness of right hand acute Other instability, right shoulder acute [facility] Work Phone: Evaluation note* Diagnosis Onset Date Resolution Status [id number] acute Laxity of ligament acute Multidirectional instability of glenohumeral joint acute Numbness of right hand acute Other instability, right shoulder acute [id number] acute Laxity of ligament acute Multidirectional instability of glenohumeral joint acute Numbness of right hand acute Other instability, right shoulder acute Right carpal tunnel syndrome acute [facility] Work Phone: Evaluation note* Diagnosis Onset Date Resolution Status [id number] acute Laxity of ligament acute Multidirectional instability of glenohumeral joint acute Numbness of right hand acute Other instability, right shoulder acute [id number] acute Laxity of ligament acute Multidirectional instability of glenohumeral joint acute Numbness of right hand acute Other instability, right shoulder acute Right carpal tunnel syndrome acute [id number] acute Laxity of ligament acute Multidirectional instability of glenohumeral joint acute Other instability, right shoulder acute Right carpal tunnel syndrome acute [facility] Work Phone: Evaluation note* Diagnosis Onset Date Resolution Status [id number] acute Laxity of ligament acute Multidirectional instability of glenohumeral joint acute Numbness of right hand acute Other instability, right shoulder acute [id number] acute Laxity of ligament acute Multidirectional instability of glenohumeral joint acute Numbness of right hand acute Other instability, right shoulder acute Right carpal tunnel syndrome acute [id number] acute Laxity of ligament acute Multidirectional instability of glenohumeral joint acute Other instability, right shoulder acute Right carpal tunnel syndrome acute [id number] acute Laxity of ligament acute Multidirectional instability of glenohumeral joint acute Other instability, right shoulder acute Right carpal tunnel syndrome acute Status post arthroscopy of right shoulder acute [facility] Work Phone: Evaluation note* Diagnosis Onset Date Resolution Status [id number] acute Laxity of ligament acute Multidirectional instability of glenohumeral joint acute Numbness of right hand acute Other instability, right shoulder acute Right carpal tunnel syndrome acute [id number] acute Laxity of ligament acute Multidirectional instability of glenohumeral joint acute Other instability, right shoulder acute Right carpal tunnel syndrome acute [id number] acute Laxity of ligament acute Multidirectional instability of glenohumeral joint acute Other instability, right shoulder acute Right carpal tunnel syndrome acute Status post arthroscopy of right shoulder acute Status post surgery noneacti ve [id number] acute Laxity of ligament acute Multidirectional instability of glenohumeral joint acute Other instability, right shoulder acute Right carpal tunnel syndrome acute Status post arthroscopy of right shoulder acute Status post surgery noneacti ve [facility] Work Phone: Evaluation note* Diagnosis Well woman exam with routine gynecological exam Routine gynecological examination [facility] Diagnosis 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 documented in this encounter [facility] note* Diagnosis Reproductive mgmt, 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 Special screening examination for infectious diseases Screening examination for unspecified infectious disease Encounter for other genetic testing of female for procreative management [facility]* Diagnosis Bipolar 1 disorder (Multi)- Primary Infertility counseling documented in this encounter [facility] Work Phone: Evaluation note* Diagnosis Treatment plan provided- Primary documented in this encounter [facility] note* Diagnosis Reproductive mgmt, 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 [facility]* Diagnosis Procreative management- Primary Unspecified procreative management documented in this encounter [facility] note* Diagnosis Female infertility- Primary Female infertility of unspecified origin [facility]* Diagnosis Fertility testing- Primary Female infertility Female infertility of unspecified origin [facility]* Diagnosis Encounter for fertility planning [Z31.89]- Primary Other specified procreative management [facility] Diagnosis Encounter for artificial insemination- Primary Artificial insemination [facility] Diagnosis 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)- Primary [facility] Diagnosis 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)- Primary [facility]* Diagnosis Abnormal thyroid function test- Primary Nonspecific abnormal results of thyroid function study 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[facility]) Unspecified nontoxic nodular goiter Vitamin D deficiency documented in this encounter [facility]* Diagnosis 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) [facility] Diagnosis Early stage of ([facility]) state, incidental [facility] Diagnosis Amenorrhea Absence of menstruation 9 weeks gestation of Missed menses , unspecified gestational age Encounter for supervision of normal first in first trimester documented in this encounter [facility] HealthcareEvaluation note* Diagnosis 13 weeks gestation of ([facility]) Second trimester ([facility]) state, incidental Thyroid disease Unspecified disorder of thyroid H/O gastric sleeve H/O iron deficiency anemia resulting from in vitro fertilization in first trimester ([facility]) documented in this encounter [facility] Healthcare[facility] note* Diagnosis Well woman exam with routine gynecological exam Routine gynecological examination Exposure to STD Second trimester ([facility]) state, incidental 18 weeks gestation of ([facility]) Need for maternal serum alpha-protein (MSAFP) screening ([facility]) Screening, , for anatomic survey ([facility]) Encounter for anatomic survey Thyroid disease Unspecified disorder of thyroid documented in this encounter [facility] HealthcareEvaluation note* Diagnosis Previous gastric bypass affecting , antepartum- Primary Hypothyroidism affecting in second trimester 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 ([facility]) Obesity affecting in second trimester, unspecified obesity type Encounter for supervision of resulting from assisted reproductive technology, antepartum documented in this encounter [facility] SystemEvaluation note* Diagnosis 20 weeks gestation of - Primary Previous gastric bypass affecting , antepartum Obesity affecting in second trimester, unspecified obesity type Hypothyroidism affecting in second trimester 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 ([facility]) headache in second trimester documented in this encounter [facility] System[facility]* Diagnosis 22 weeks gestation of ([facility]) Second trimester ([facility]) state, incidental Thyroid disease Unspecified disorder of thyroid H/O gastric sleeve H/O iron deficiency anemia Diabetes mellitus screening Screening for diabetes mellitus documented in this encounter [facility] HealthcareEvaluation note* Diagnosis Previous gastric bypass affecting , antepartum- Primary Hypothyroidism affecting in second trimester 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 ([facility]) Obesity affecting in second trimester, unspecified obesity type documented in this encounter [facility] SystemEvaluation note* Diagnosis 26 weeks gestation of ([facility]) Second trimester ([facility]) state, incidental TSH (thyroid-stimulating hormone deficiency) Other specified acquired hypothyroidism [facility] - [facility]* Type Description Date Surgical History cholecystectomy 2014 Surgical History gastric sleeve 2020 [employer] Other History general Narrative - Reported* Type Description Date Medical History Hypothyroidism Medical History MNG Medical History enuresis Medical History extreme obesity Medical History GERD with esophagitis Medical History headache Medical History Goiter, nontoxic, multinodular Medical History Vitamin D deficiency Surgical History cholecystectomy 2014 Surgical History cholecystectomy 2015 Surgical History gastric sleeve 2020 Hospitalization History Anemia 05/2022 [facility] Other Hospital course Narrative No data available for this section [facility] Discharge instructions No data available for this section [facility] Discharge instructions Additional Instructions POSTOPERATIVE INSTRUCTIONS FOR SHOULDER LABRAL REPAIR Romeo Santana DO Orthopedic Surgeon [facility] GENERAL INSTRUCTIONS: Use ice packs to [...] office immediately. Romeo Santana DO Orthopedic Surgeon [facility] Office: [address] [place] [address] Office number: [phone] [facility] Work Phone: Hospital Discharge instructionsAmbulatory Orders* Referral to Allergy/Immunology Time Frame: 04/26/24, Location: None [facility] Work Phone: Hospital Discharge instructions Additional Instructions We evaluated you for your vaginal bleeding in . Your ultrasound was normal, the baby has a good heart rate, measuring at 13 weeks and 1 day. Your cervix was closed. Follow-up closely with your APPLIED PSYCHOLOGY TEACHER. Return to the emergency department if you develop any worsening or concerning symptoms.[facility] Work Phone: InstructionsNot on filedocumented in this encounter [facility]ructionsNot on filedocumented in this encounter [facility]* Attachments The following attachments cannot be sent through Care Everywhere. * Preeclampsia (Australian) documented in this encounterProMedica Health SystemInstructionsNot on file documented in this encounterProMediHealthWyse SystemInstructionsNot on file documented in this encounterProMediSpice Online Retail Health SystemReason for referral (narrative)No reason for referral information availableK[facility] Work Phone: Reason for visit Narrative* Consult, Test, Treat (Routine) - Closed Specialty Diagnoses / Procedures Referred By Contact Referred To Contact [facility] Diagnoses Encounter for procreative management, unspecified Encounter for other procreative management Procedures ARTIFIC INSEMINATION INTRAUTERIN THAWING CRYOPRESERVED SPERM/SEMEN EACH ALIQUOT Daniel Hanna APRN.[employer] [address] [place] [address] Phone: tel:[phone] fax:[phone] Reproductive Endocrinology Infertility [address] [place] [address] Phone: tel: Referral ID Status Reason Start Date Expiration Date V isits Requested Visits Authorized [id number] Closed Financial Clearance Required - Self Pay Patient Cleared - True Self-Pay required payment collected Do Not Bill Insurance - SP patient 05/17/2024 08/15/2024 2 2 [facility] for visit Narrative* Diagnostic Procedure Only (Routine) - Authorized Specialty Diagnoses / Procedures Referred By Contac t Ref[facility] Diagnoses Fertility testing Procedures PELVIC US WHI US PELVIC NONOBSTETRIC REAL-TIME IMAGE COMPLETE Ignacio Guy MD [address] [place] [address] Phone: tel: fax: [facility] [address] [id number] Referral ID Status Reason Start Date Expiration Date Visits Requested Visits Authorized [id number] Authorized Auto-Generate d Referral Patient Cleared - True Self-Pay required payment collected Do Not Bill Insurance - SP patient 06/09/2024 06/09/2025 2 2 [facility] for visit Narrative* Consult, Test, Treat (Routine) - Closed Specialty Diagnoses / Procedures Referred By Contact Referred To Contact [facility] Diagnoses Encounter for procreative management, unspecified Encounter for other procreative management Procedures THAWING CRYOPRESERVED SPERM/SEMEN EACH ALIQUOT ARTIFIC INSEMINATION INTRAUTERIN Daniel Hanna APRN.[employer] [address] [place] [address] Phone: tel:[phone] fax:[phone] Reproductive Endocrinology Infertility [address] [place] [address] Phone: tel: Referral ID Status Reason Start Date Expiration Date V isits Requested Visits Authorized [id number] Closed Patient Cleared - True Self-Pay required payment collected Do Not Bill Insurance - SP patient 06/29/2024 09/27/2024 2 2 [facility] for visit Narrative* Financial Clearance (Routine) - Closed Specialty Diagnoses / Procedures Referred By Contac t Referred To Contact [facility] Diagnoses Collect for IUI-D washed sample Procedures THAWING CRYOPRESERVED SPERM/SEMEN EACH ALIQUOT ARTIFIC INSEMINATION INTRAUTERIN FINANCIAL CLEARANCE PHONE CALL Self Financial Clearance Phone Screening [facility] Referral ID Status Reason Start Date Expiration Date V isits Requested Visits Authorized [id number] Closed Financial Clearance Required - Self Pay Patient Cleared - True Self-Pay required payment collected Do Not Bill Insurance - SP patient 07/25/2024 09/23/2024 2 2 [facility] for visit Narrative* Diagnostic Procedure Only (Routine) - Closed Specialty Diagnoses / Procedures Referred By Contac t Referred To Contact [facility] Diagnoses 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) Procedures OBSTETRIC ULTRASOUND WHI US PREG UTERUS AFTER 1ST TRIMEST / GESTATION Shelly Hernandez, PICTURE HANGER.[employer] [address] [address] Phone: tel: fax: [address] [address] Referral ID Status Reason Start Date Expiration Date V isits Requested Visits Authorized [id number] Closed Auto-Generate d Referral 08/20/2024 08/20/2025 1 1 [facility] N[facility]ative* Diagnostic Procedure Only (Routine) - Closed Specialty Diagnoses / Procedures Referred By Saud tavera Referred To Contact [facility] Diagnoses Early stage of (HCC) Procedures OBSTETRIC ULTRASOUND WHI US PREG UTERUS AFTER 1ST TRIMEST GESTATION Shelly Hernandez, PICTURE HANGER.[employer] [address] [place], [place] [address] Phone: tel: fax: [address] [address] Referral ID Status Reason Start Date Expiration Date V isits Requested Visits Authorized [id number] Closed Auto-Generate d Referral 09/03/2024 04/17/2025 1 1 [facility] Advance Directives No Advanced Directives Records FoundDocuments on File Type Date Recorded Patient Manager Strategy & Account Expl anation ACP-Advance Directive ACP-Power of Construction Ironworker Helper Documents on File Type Date Recorded Patient Manager Strategy & Account Expl anation ACP-Advance Directive ACP-Power of Construction Ironworker Helper Latest Code Status on File Code Status Date Activated Date Inactivated Comments Full Code 05/06/2020 4:42 PM Advance Directive Response Recorded Date/ Time Advance Directives No March 3:24pm Advance Directive Response Recorded Date/ Time Advance Directives No March 4:24pm Advance Directive Response Recorded Date/ Time Advance Directives No November 08 24 11:27am Discharge Instructions * Instructions* Kunal Newman [...] drive you home after your procedure. Your route sales driver must be 18 years of age [...] questions, call the Pre-Admission Testing Unit at [phone]. Day of Surgery/Procedure As a patient at [facility] you can expect quality medical and nursing care that is centered on your individual needs. Our goal is to make your surgical experience as comfortableas possible . Directions to the Surgery Center [facility] is located at [address] [place] [address]. Please pull into the Emergency parking lot and stop at the [employer] dotson. We offer free tool engineer service for all our surgery patients, if you choose not to have tool engineer parking we have additional parking across the street.You will enter the facility following the [facility] sign. Please stop at the emergency room registered nurse desk where you will be checked in by the staff. If you have any questions please call [phone]. Transportation after your procedure. You will need a friend or family member to drive you home after your procedure. Your route sales driver must be18 years of age or [...] may shave your face or neck. ? [place] your teeth but do not swallow water. [...] or the day of surgery, please call [phone], or [phone] documented in this encounter* Instructions* Mukesh Montez, [...] 48 hours call the anesthesia department at [phone]. Will you need pain medication? The nerve [...] block please phone the Anesthesiology Department at [phone]. If the phone does not get answered please contact the hospital construction equipment operator at [phone] to page the escalator constructor anesthesiologist Discharge Instructions for Bariatric Surgery You had a Laparoscopic Sleeve Gastrectomy ([address]) surgery to treat obesity. Recovery from this [...] scheduled appointment, please call the office at [phone]. Call Your Doctor If Any of the [...] AM EST CLINICAL PHARMACY NOTE: MEDS TO [facility] Patient?: No Total # of Prescriptions Filled: 3 The following medications were delivered to the patient: Oxycodone-acetaminophen 5/325 mg tab Cyclobenzaprine 10 mg tab Enoxaparin 60mg /0.6 ml syr Total # of Interventions Completed: 1 Time Spent (min): 60 Additional Documentation:called case finisher about the high co-pay on the enoxaparin [...] PROTOCOL [x] PATIENT EDUCATION NEEDED * Silvia Chen, LEIGH - 05/06/2020 4:38 PM EST Patient transferred [...] EST Patient and updated on surgery delay. LINA * Amy Cook RN - 05/06/2020 10:49 [...] SHOULDER DI SCUSS SURGERY Reason for Visit [id number] Laxity of ligament Multidirectional instability of glenohumeral joint Numbness of right hand Other instability, right shoulder Chief Complaint OP SP RT SHOULDER DI SCUSS SURGERY R20.0 Reason for Visit [id number] Laxity of ligament Multidirectional instability of glenohumeral joint Numbness of right hand Other instability, right shoulder Chief Complaint OP SP RT SHOULDER DI SCUSS SURGERY R20.0 EMG RESULTS Reason for Visit [id number] Laxity of ligament Multidirectional instability of glenohumeral joint Numbness of right hand Other instability, right shoulder [id number] Laxity of ligament Multidirectional instability of glenohumeral joint Numbness of right hand Other instability, right shoulder Right carpal tunnel syndrome Chief Complaint OP SP RT SHOULDER DI SCUSS SURGERY R20.0 EMG RESULTS Shoulder pain Reason for Visit [id number] Laxity of ligament Multidirectional instability of glenohumeral joint Numbness of right hand Other instability, right shoulder [id number] Laxity of ligament Multidirectional instability of glenohumeral joint Numbness of right hand Other instability, right shoulder Right carpal tunnel syndrome Chief Complaint OP SP RT SHOULDER DI SCUSS SURGERY R20.0 EMG RESULTS Shoulder pain H & P RIGHT SHOULDER ARTHROSCOPY 12-07-23 Reason for Visit [id number] Laxity of ligament Multidirectional instability of glenohumeral joint Numbness of right hand Other instability, right shoulder [id number] Laxity of ligament Multidirectional instability of glenohumeral joint Numbness of right hand Other instability, right shoulder Right carpal tunnel syndrome [id number] Laxity of ligament Multidirectional instability of glenohumeral joint Other instability, right shoulder Right carpal tunnel syndrome Chief Complaint OP SP RT SHOULDER DI SCUSS SURGERY R20.0 EMG RESULTS Shoulder pain H & P RIGHT SHOULDER ARTHROSCOPY 12-07-23 Shoulder pain Shoulder pain Reason for Visit [id number] Laxity of ligament Multidirectional instability of glenohumeral joint Numbness of right hand Other instability, right shoulder [id number] Laxity of ligament Multidirectional instability of glenohumeral joint Numbness of right hand Other instability, right shoulder Right carpal tunnel syndrome [id number] Laxity of ligament Multidirectional instability of glenohumeral joint Other instability, right shoulder Right carpal tunnel syndrome Chief Complaint OP SP RT SHOULDER DI SCUSS SURGERY R20.0 EMG RESULTS Shoulder pain H & P RIGHT SHOULDER ARTHROSCOPY 12-07-23 Shoulder pain Shoulder pain 10-14 DAYS POST OP Reason for Visit [id number] Laxity of ligament Multidirectional instability of glenohumeral joint Numbness of right hand Other instability, right shoulder [id number] Laxity of ligament Multidirectional instability of glenohumeral joint Numbness of right hand Other instability, right shoulder Right carpal tunnel syndrome [id number] Laxity of ligament Multidirectional instability of glenohumeral joint Other instability, right shoulder Right carpal tunnel syndrome [id number] Laxity of ligament Multidirectional instability of glenohumeral joint Other instability, right shoulder Right carpal tunnel syndrome Status post arthroscopy of right shoulder Chief Complaint R20.0 EMG RESULTS Shoulder pain H & P RIGHT SHOULDER ARTHROSCOPY 12-07-23 Shoulder pain Shoulder pain 10-14 DAYS POST OP R20.0 4 WEEKS Reason for Visit [id number] Laxity of ligament Multidirectional instability of glenohumeral joint Numbness of right hand Other instability, right shoulder Right carpal tunnel syndrome [id number] Laxity of ligament Multidirectional instability of glenohumeral joint Other instability, right shoulder Right carpal tunnel syndrome [id number] Laxity of ligament Multidirectional instability of glenohumeral joint Other instability, right shoulder Right carpal tunnel syndrome Status post arthroscopy of right shoulder Status post surgery [id number] Laxity of ligament Multidirectional instability of glenohumeral [...] for Visit Admit Date 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 December 20, 2023 10:11am Laxity of ligament December 20, 2023 10:11am Multidirectional instability of glenohum eral joint December 20, 2023 10:11am Other instability, right shoulder Septem 2023 10:11am Right carpal tunnel syndrome December 192023 10:11am Status post arthroscopy of right shoulde r December 20, 2023 10:11am Status post surgery December 20, 2023 10:11am Degenerative superior labral sevqtnoo-ll-pjzpwfbiz (SLAP) tear of right matthias January 17, 2024 11:58am Laxity of ligament January 17, 2024 11 :58am Multidirectional instability of glenohum eral joint January 17, 2024 11:58am Other instability, right shoulder Octobe 2023 11:58am Right carpal tunnel syndrome January 11:58am Status post arthroscopy of right shoulde r January 17, 2024 11:58am Status post surgery January 17, 2024 11 :58am Degenerative superior labral ivihdekg-or-dsblkctum (SLAP) tear of right matthias February 27, [...] for Visit Admit Date Degenerative superior labral vofxzwuw-cc-ttnmlcbpq (SLAP) tear of right matthias February 27, 2024 2:25pm Laxity of ligament February 27, 2024 2:25pm Multidirectional instability of glenohum eral joint February 27, 2024 2:25pm Other instability, right shoulder Novemb er 2023 2:25pm Right carpal tunnel syndrome February 262023 2:25pm Status post arthroscopy of right shoulde r February 27, 2024 2:25pm Status post surgery February 27, 2024 2:25pm Degenerative superior labral rmsitvub-go-boqnwfimh (SLAP) tear of right matthias April 23, [...] for Visit Admit Date Degenerative superior labral emcjsyib-cz-dbufhxaeo (SLAP) tear of right matthias February 27, 2024 2:25pm Laxity of ligament February 27, 2024 2:25pm Multidirectional instability of glenohum eral joint February 27, 2024 2:25pm Other instability, right shoulder Novemb er 2023 2:25pm Right carpal tunnel syndrome February 262023 2:25pm Status post arthroscopy of right shoulde r February 27, 2024 2:25pm Status post surgery February 27, 2024 2:25pm Degenerative superior labral pwwgdogl-wt-whhctqcdn (SLAP) tear of right matthias April 23, [...] therapy exercises and steroid injection, MRI at [facility], Dr. 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) Referral Organization [facility] Family Medicin e [place] Referring Provider First Name Amanda Referring Provider Last Name Logan Referring Provider Specialty Nurse Pract itioner Referred Organization [employer] Referred Provider Darleen Sinclair Referred Address [address] [facility] [address],[place], [place],[address] Referred Provider Specialty Endocrinolog y Referral Priority Routine General Notes Chelsi Avalos 023 11:26:34 AM >Received today and waiting for office notes to be locked before sending referral Additional Source Comments Reason for Visit (unrecogniz ed section and content) Status Reason Specialty Diagnoses / Procedures Referre d By Contact Referred To Contact Diagnoses Morbid obesity (HCC) MORBID OBESITY, HYPOTHYROID Procedures [place] LAP GASTRIC BYPASS/BEN-EN-Y XI LAPAROSCOPIC ROBOTIC GASTRIC BYPASS BEN-EN-Y, LIVER BIOPSY, EGD- GI UNIT SCHEDULED. Rashard Olivera DO [address] [facility] [address] [place] [address] [facility] Reason Comments Gynecologic Exam Reason Comments Infertility Specialty Diagnoses / Procedures Referred By Saud tavera Referred To Contact [facility] Diagnoses Female infertility, unspecified Procedures VV OFFICE/OP CONSLTJ NEW/EST PT MOD MDM 40 MINUTES Pcp, No, PICTURE HANGER i [facility] [address] [place] [address] Referral ID Status Reason Start Date Expiration Date V isits Requested Visits Authorized [id number] Closed Financial Clearance Required - Self Pay Patient Cleared - True Self-Pay required payment collected Do Not Bill Insurance - SP patient Financial Clearance Not Required 12/30/2023 02/28/2024 1 1 Reason Comments donor sperm teach Specialty Diagnoses / Procedures [facility]erred By [facility] Referred To Contact [facility] Diagnoses Infertility counseling Procedures OFFICE/OUTPATIENT ESTABLISHED MOD MDM 30 MIN Shelly Hernandez G, PICTURE HANGER.[employer] [address] [place] [address] [facility] [address] [place] [address] Referral ID Status Reason Start Date Expiration Date V isits Requested Visits Authorized [id number] Closed Financial Clearance Required - Self Pay Patient Cleared - True Self-Pay required payment collected Do Not Bill Insurance - SP patient 02/28/2024 05/28/2024 1 1 Specialty Diagnoses / Procedures Referred By Saud tavera Referred To Contact [facility] Diagnoses Encounter for fertility testing Procedures OFFICE/OUTPATIENT ESTABLISHED LOW MDM 20 MIN [facility] [address] [place] [address] [facility] [address] [place] [address] Referral ID Status Reason Start Date Expiration Date V isits Requested Visits Authorized [id number] Closed Financial Clearance Required - Self Pay [...] section and content) DATE CREATED AUTHOR 05/08/2020 [facility] DATE CREATED AUTHOR AUTHOR'S ORGANIZ ATION 03/31/2021 [facility] DATE CREATED AUTHOR AUTHOR'S ORGANIZ ATION 09/04/2021 [facility] DATE CREATED AUTHOR AUTHOR'S ORGANIZ ATION 04/19/2024 [facility] DATE CREATED AUTHOR AUTHOR'S ORGANIZ ATION 05/05/2024 [facility] DATE CREATED AUTHOR AUTHOR'S ORGANIZ ATION 09/12/2024 [facility] DATE CREATED AUTHOR AUTHOR'S ORGANIZ ATION 10/05/2024 [facility] DATE CREATED AUTHOR AUTHOR'S ORGANIZ ATION 12/07/2024 [facility] DATE CREATED AUTHOR AUTHOR'S ORGANIZ ATION 12/07/2024 [facility] DATE CREATED AUTHOR AUTHOR'S ORGANIZ ATION 01/05/2025 [facility] DATE CREATED AUTHOR AUTHOR'S ORGANIZ ATION 01/21/2025 [facility] Special[facility] EPIC Care Teams (unrecognized sec tion and content) Team Status: Inactive Member Role Status Dates Robin Appiah MD Primary Care Provider Active Amanda Ford APRN VIDEO SYSTEM REPAIRER-Rudi Attending Provider Act misti Team Status: Inactive Member Role Status Dates Amanda Ford APRN VIDEO SYSTEM REPAIRER-C Primary Care Provider Active Jean Jett PA-C Emergency Provider Active Team Status: Inactive Member Role Status Dates Amanda Ford APRN VIDEO SYSTEM REPAIRER-C Primary Care Provider Active Jack Easton DO Emergency Provider Active Team Status: Active Member Role Status Dates Amanda Ford APRN VIDEO SYSTEM REPAIRER-C Primary Care Provider Active Team Status: Inactive Member Role Status Dates Amanda Ford APRN VIDEO SYSTEM REPAIRER-Rudi Primary Care Provider, Attending Provider Active Team Status: Active Member Role Status Dates Amanda Ford APRN VIDEO SYSTEM REPAIRER-C Primary Care Provider Active Jean Jett PA-C Emergency Provider Active Farhad Gallego MD Admit Provider, Attending Provider A ctive Team Status: Inactive Member Role Status Dates Amanda Ford APRN VIDEO SYSTEM REPAIRER-C Primary Care Provider Active Jean J Jett , PA-C Emergency Provider Active Farhad Gallego MD Admit Provider, Attending Provider A ctive Team Status: Inactive Member Role Status Dates Amanda Ford APRN VIDEO SYSTEM REPAIRER-C Primary Care Provider Active ANDREW GrecoC Attending Provider Active Team Status: Inactive Member Role Status Dates Provider Conversion Attending Provider Active St art: May 17, 2023 End: May 17, 2023 Team Status: Inactive Member Role Status Dates Amanda Ford APRN VIDEO SYSTEM REPAIRER-C Primary Care Provider, Attending Provider Active Start: June 08, 2023 End: June 08, 2023 Team Status: Active Member Role Status Dates Amanda Ford APRN VIDEO SYSTEM REPAIRER-C Primary Care Provider, Attending Provider Active Start: September 15, 2023 Team Status: Inactive Member Role Status Dates Amanda Ford APRN VIDEO SYSTEM REPAIRER-C Primary Care Provider Active Start: October 13, 2023 End: October 13, 2023 Romeo Santana DO Attending Provider Active St art: October 13, 2023 End: October 13, 2023 Team Status: Inactive Member Role Status Dates Amanda Ford APRN VIDEO SYSTEM REPAIRER-C Primary Care Provider Active Start: October 26, 2023 End: October 26, 2023 Romeo Santana DO Attending Provider Active St art: October 26, 2023 End: October 26, 2023 Team Status: Inactive Member Role Status Dates Amanda Ford APRN VIDEO SYSTEM REPAIRER-C Primary Care Provider Active Start: November 01, 2023 End: November 01, 2023 Romeo Santana DO Attending Provider Active St art: November 01, 2023 End: November 01, 2023 Team Status: Inactive Member Role Status Dates Amanda Ford APRN VIDEO SYSTEM REPAIRER-C Primary Care Provider Active Start: November 28, 2023 End: November 28, 2023 Romeo Santana DO Attending Provider Active St art: November 28, 2023 End: November 28, 2023 Team Status: Inactive Member Role Status Dates Amanda Ford APRN VIDEO SYSTEM REPAIRER-C Primary Care Provider Active Start: December 01, 2023 End: December 01, 2023 Romeo Santana DO Attending Provider Active St art: December 01, 2023 End: December 01, 2023 Team Status: Inactive Member Role Status Dates Amanda Ford APRN VIDEO SYSTEM REPAIRER-C Primary Care Provider Active Start: December 07, 2023 End: December 07, 2023 Romeo Santana DO Attending Provider Active St art: December 07, 2023 End: December 07, 2023 Team Status: Active Member Role Status Dates Amanda Ford APRN VIDEO SYSTEM REPAIRER-C Primary Care Provider Active Start: November Romeo Santana DO Attending Provider, Other Provider Active Start: December 07, 2023 Team Status: Inactive Member Role Status Dates Amanda Ford APRN VIDEO SYSTEM REPAIRER-C Primary Care Provider Active Start: December 192023 End: December 20, 2023 Romeo Santana DO Attending Provider Active St art: December 20, 2023 End: December 20, 2023 Team Status: Active Member Role Status Dates Amanda Ford APRN VIDEO SYSTEM REPAIRER-C Primary Care Provider Active Start: December 182023 Romeo Santana DO Other Provider Active Start: January 10, 2024 Daniel Hampton MD Attending Provider Active Start: January 10, 2024 Team Status: Inactive Member Role Status Dates Amanda Ford APRN VIDEO SYSTEM REPAIRER-C Primary Care Provider Active Start: January 17, 2024 End: January 17, 2024 Romeo Santana DO Attending Provider Active St art: January 17, 2024 End: January 17, 2024 Cracker Sprayer Relationship Specialty Start Date End Date Amanda Ford NP [address] [id number] PCP - General Family Medicine 01/17/23 Cracker Sprayer Relationship Specialty Start Date End Date Amanda Ford NP [address] [place] [address] PCP - General Family Medicine 01/17/23 Team Status: Inactive Member Role Status Dates Amanda Ford APRN VIDEO SYSTEM REPAIRER-C Primary Care Provider Active Start: February 262023 End: February 27, 2024 Romeo Santana DO Attending Provider Active St art: February 27, 2024 End: February 27, 2024 Cracker Sprayer Relationship Specialty Start Date End Date Amanda Ford NP PCP - General Family Medicine 01/17/23 Team Status: Active Member Role Status Dates Amanda Ford APRN VIDEO SYSTEM REPAIRER-Rudi Primary Care Provider Active Start: February Les Martinez DO Attending Provider Active Start : February 20, 2024 Team Status: Inactive Member Role Status Dates Amanda Ford APRN VIDEO SYSTEM REPAIRER-Rudi Primary Care Provider Active Start: April 23, 2024 End: April 23, 2024 Romeo Santana DO Attending Provider Active St art: April 23, 2024 End: April 23, 2024 Team Status: Inactive Member Role Status Dates Amanda Ford APRN VIDEO SYSTEM REPAIRER-C Primary Care Provider, Attending Provider Active Start: April 26, 2024 End: April 26, 2024 Cracker Sprayer Relationship Specialty Start Date End Date Amanda Ford NP [address] [place], [place] [id number] PCP - General Family Medicine 01/17/23 Cracker Sprayer Relationship Specialty Start Date End Date Amanda Ford NP [address] [place] [address] PCP - General Family Medicine 01/17/23 Cracker Sprayer Relationship Specialty Start Date End Date Amanda Ford NP [address] [place] [address] PCP - General Family Medicine 01/17/23 Cracker Sprayer Relationship Specialty Start Date End Date Amanda Ford NP [address] [place] [address] PCP - General Family Medicine 01/17/23 Team Status: Inactive Member Role Status Dates Amanda Ford APRN VIDEO SYSTEM REPAIRER-C Primary Care Provider Active Start: October 18, 2024 End: October 18, 2024 Kassidy Arriaza DO Emergency Provider Active Start: October 18, 2024 End: October 18, 2024 Cracker Sprayer Relationship Specialty Start Date End Date Amanda Ford NP [facility] [place] [address] PCP - General Family Medicine 01/17/23 Cracker Sprayer Relationship Specialty Start Date End Date No Pcp, [place] [address] PCP - General Family Medicine 05/20/20 Cracker Sprayer Relationship Specialty Start Date End Date No Pcp, [place] [address] PCP - General Family Medicine 05/20/20 Cracker Sprayer Relationship Specialty Start Date End Date Amanda Ford NP [address] [place] [address] [place] [address] PCP - General Family Medicine 01/17/23 Cracker Sprayer Relationship Specialty Start Date End Date Amanda Ford NP [address] [place] [address] [place] [address] PCP - General Family Medicine 01/17/23 Cracker Sprayer Relationship Specialty Start Date End Date Amanda Ford NP [address] [place] [address] [place] [address] PCP - General Family Medicine 01/17/23 Team Status: Active Member Role Status Dates Amanda Ford APRN VIDEO SYSTEM REPAIRER-C Primary Care Provider Active Start: November 17, 2024 Chris Dickerson DO Attending Provider Active S tart: November 17, 2024 Team Status: Active Member Role Status Dates Amanda Ford APRN VIDEO SYSTEM REPAIRER-C Primary Care Provider Active Start: November 20, 2024 Les Martinez DO Attending Provider Active Start : November 20, 2024 Team Status: Active Member Role Status Dates Amanda Ford APRN VIDEO SYSTEM REPAIRER-C Primary Care Provider Active Start: November 30, 2024 Chris Dickerson DO Attending Provider Active S tart: November 30, 2024 Team Status: Inactive Member Role Status Dates Chris Dickerson DO Attending Provider Active S tart: November 30, 2024 End: November 30, 2024 Team Status: Active Member Role Status Dates Elizabeth Osborne NP-Rudi Attending Provider Active S tart: December 01, 2024 Team Status: Inactive Member Role Status Dates Amanda Ford APRN VIDEO SYSTEM REPAIRER-Rudi Primary Care Provider Active Start: December 02, 2024 End: December 03, 2024 Eduardo Cruz DO Attending Provider Active Sta rt: December 02, 2024 End: December 03, 2024 Cracker Sprayer Relationship Specialty Start Date End Date No Pcp, [place] [address] PCP - General Family Medicine 05/20/20 Cracker Sprayer Relationship Specialty Start Date End Date No Pcp, [place] [address] PCP - General Family Medicine 05/20/20 Cracker Sprayer Relationship Specialty Start Date End Date Amanda Ford NP [address] [place] [address] PCP - General Family Medicine 01/17/23 Cracker Sprayer Relationship Specialty Start Date End Date No Pcp, [place] [address] PCP - General Family Medicine 05/20/20 Cracker Sprayer Relationship Specialty Start Date End Date No Pcp, [place] [address] PCP - General Family Medicine 05/20/20 Cracker Sprayer Relationship Specialty Start Date End Date Amanda Ford NP [address] [place] [address] PCP - General Family Medicine 01/17/23 Goals (unrecognized section and content) Type Treatment [...] or prosecute any alcohol or drug abuse patient.[facility] HospitalIn the event this information is protected by the Federal Confidentiality of Alcohol and Drug Abuse Patient Records regulations: The Federal rules restrict any use of the information to criminally investigate or prosecute any alcohol or drug abuse patient.[facility] HospitalIn the event this information is protected by the Federal Confidentiality of Alcohol and Drug Abuse Patient Records regulations: The Federal rules restrict any use of the information to criminally investigate or prosecute any alcohol or drug abuse patient.[facility] HospitalIn the event this information is protected by the Federal Confidentiality of Alcohol and Drug Abuse Patient Records regulations: The Federal rules restrict any use of the information to criminally investigate or prosecute any alcohol or drug abuse patient.[facility] HospitalIn the event this information is protected by the Federal Confidentiality of Alcohol and Drug Abuse Patient Records regulations: The Federal rules restrict any use of the information to criminally investigate or prosecute any alcohol or drug abuse patient.[facility] HospitalIn the event this information is protected by the Federal Confidentiality of Alcohol and Drug Abuse Patient Records regulations: The Federal rules restrict any use of the information to criminally investigate or prosecute any alcohol or drug abuse patient.[facility] HospitalIn the event this information is protected by the Federal Confidentiality of Alcohol and Drug Abuse Patient Records regulations: The Federal rules restrict any use of the information to criminally investigate or prosecute any alcohol or drug abuse patient.[facility] HospitalIn the event this information is protected by the Federal Confidentiality of Alcohol and Drug Abuse Patient Records regulations: The Federal rules restrict any use of the information to criminally investigate or prosecute any alcohol or drug abuse patient.[facility] HospitalIn the event this information is protected by the Federal Confidentiality of Alcohol and Drug Abuse Patient Records regulations: The Federal rules restrict any use of the information to criminally investigate or prosecute any alcohol or drug abuse patient.[facility] HospitalIn the event this information is protected by the Federal Confidentiality of Alcohol and Drug Abuse Patient Records regulations: The Federal rules restrict any use of the information to criminally investigate or prosecute any alcohol or drug abuse patient.[facility] HospitalIn the event this information is protected by the Federal Confidentiality of Alcohol and Drug Abuse Patient Records regulations: The Federal rules restrict any use of the information to criminally investigate or prosecute any alcohol or drug abuse patient.[facility] HospitalIn the event this information is protected by the Federal Confidentiality of Alcohol and Drug Abuse Patient Records regulations: The Federal rules restrict any use of the information to criminally investigate or prosecute any alcohol or drug abuse patient.[facility] HospitalIn the event this information is protected by the Federal Confidentiality of Alcohol and Drug Abuse Patient Records regulations: The Federal rules restrict any use of the information to criminally investigate or prosecute any alcohol or drug abuse patient.[facility] HospitalIn the event this information is protected by the Federal Confidentiality of Alcohol and Drug Abuse Patient Records regulations: The Federal rules restrict any use of the information to criminally investigate or prosecute any alcohol or drug abuse patient.[facility] HospitalIn the event this information is protected by the Federal Confidentiality of Alcohol and Drug Abuse Patient Records regulations: The Federal rules restrict any use of the information to criminally investigate or prosecute any alcohol or drug abuse patient.[facility] HospitalIn the event this information is protected by the Federal Confidentiality of Alcohol and Drug Abuse Patient Records regulations: The Federal rules restrict any use of the information to criminally investigate or prosecute any alcohol or drug abuse patient.[facility] HospitalIn the event this information is protected by the Federal Confidentiality of Alcohol and Drug Abuse Patient Records regulations: The Federal rules restrict any use of the information to criminally investigate or prosecute any alcohol or drug abuse patient.[facility] HospitalIn the event this information is protected by the Federal Confidentiality of Alcohol and Drug Abuse Patient Records regulations: The Federal rules restrict any use of the information to criminally investigate or prosecute any alcohol or drug abuse patient.[facility] HospitalIn the event this information is protected by the Federal Confidentiality of Alcohol and Drug Abuse Patient Records regulations: The Federal rules restrict any use of the information to criminally investigate or prosecute any alcohol or drug abuse patient.[facility] HospitalIn the event this information is protected by the Federal Confidentiality of Alcohol and Drug Abuse Patient Records regulations: The Federal rules restrict any use of the information to criminally investigate or prosecute any alcohol or drug abuse patient.[facility] HospitalIn the event this information is protected by the Federal Confidentiality of Alcohol and Drug Abuse Patient Records regulations: The Federal rules restrict any use of the information to criminally investigate or prosecute any alcohol or drug abuse patient.[facility] HospitalIn the event this information is protected by the Federal Confidentiality of Alcohol and Drug Abuse Patient Records regulations: The Federal rules restrict any use of the information to criminally investigate or prosecute any alcohol or drug abuse patient.[facility] HospitalIn the event this information is protected by the Federal Confidentiality of Alcohol and Drug Abuse Patient Records regulations: The Federal rules restrict any use of the information to criminally investigate or prosecute any alcohol or drug abuse patient.[facility] HospitalIn the event this information is protected by the Federal Confidentiality of Alcohol and Drug Abuse Patient Records regulations: The Federal rules restrict any use of the information to criminally investigate or prosecute any alcohol or drug abuse patient.[facility] HospitalIn the event this information is protected by the Federal Confidentiality of Alcohol and Drug Abuse Patient Records regulations: The Federal rules restrict any use of the information to criminally investigate or prosecute any alcohol or drug abuse patient.[facility] HospitalIn the event this information is protected by the Federal Confidentiality of Alcohol and Drug Abuse Patient Records regulations: The Federal rules restrict any use of the information to criminally investigate or prosecute any alcohol or drug abuse patient.[facility] HospitalIn the event this information is protected by the Federal Confidentiality of Alcohol and Drug Abuse Patient Records regulations: The Federal rules restrict any use of the information to criminally investigate or prosecute any alcohol or drug abuse patient.[facility] FOR RECORDS PERTAINING TO PATIENTS WHO [...] BE BASED ON THE PRIMARY CLINICAL RECORDS. [employer] [facility]. provides no warranty or guarantee of the accuracy or completeness of information in this document.
== END 2025-01-21 19:00 | disposition home or self-care (01) ==
LOC: FBC 18:01
PROVIDERS: Admitting Provider Obstetrics & Gynecology; PCP Nurse Practitioner Family; Visit Provider Obstetrics & Gynecology
DX: O36.8190 Decreased fetal movements, unspecified trimester, not applicable or unspecified (principal); Z3A.00 Weeks of gestation of pregnancy not specified
CPT/HCPCS: 76818; G0378; G0379

== ENCOUNTER 2025-02-10 13:47 | Observation (INO) | payer MEDICAID, SELFPAY ==
--- OUTSIDE RECORDS SUMMARY | 2024-04-25 09:30 | XMS_ITS ---
Author Organization [facility] Address [address] [place] [address] Care Team Providers Care Customs And Immigration Officer Name Role Phone Jennifer Hahn Primary Care Provider [phone] Julieta Sher [phone] REASON FOR VISIT 3 month f/u Encounters Encounter Location Date Provider Diagnosis [facility] [address] [address] 04/25/2024 Julieta Jefferson Plan Of Treatment No Information Progress Notes * GUZMAN DEL CIDDOB: 5 (29 yo F)Acc No.[id number]:04/25/2024 Behavioral Health Patient: GUZMAN AMES Provider:Gilbert JeffersonDOB:1995???Age:29 Y ???Sex:FemaleDate:04/25/2024Phone:[phone]:[address], [id number]:Jennifer Hahn Subjective: * Chief Complaints: * 3 month f/u * Electronic signature of NELIDA Newell FNP on 02/10/2025 at 01:51 PM EDT Sign off status: Pending * Appointment Provider: Adin Jefferson Date: 0 04/25/2024 Generated for Printing/Faxing/eTransmitting on:?02/10/2025 01:51 PM EDT
--- OUTSIDE RECORDS SUMMARY | 2024-07-25 06:30 | XMS_ITS ---
Author Organization [facility] Address [address] [place] [address] Care Team Providers Care Hand Silvering Supervisor Name Role Phone Jennifer Hahn Primary Care Provider [phone] Julieta Sher [phone] REASON FOR VISIT 3 month f/u Encounters Encounter Location Date Provider Diagnosis [facility] [address] [place] [address] 07/25/2024 Julieta Jefferson Plan Of Treatment No Information Progress Notes * GUZMAN DEL CIDDOB: 5 (29 yo F)Acc No.[id number]:07/25/2024 Behavioral Health Patient: GUZMAN AMES Provider:?Julieta JeffersonDOB:1995???Age:29 Y ???Sex:FemaleDate:07/25/2024Phone:[phone]:[address], [id number]:Jennifer Hahn Subjective: * Chief Complaints: * 3 month f/u * Electronic signature of NELIDA Newell FNP on 02/10/2025 at 01:51 PM EDT Sign off status: Pending * Appointment Provider: Adin Jefferson Date: 0 07/25/2024 Generated for Printing/Faxing/eTransmitting on:?02/10/2025 01:51 PM EDT
--- OUTSIDE RECORDS SUMMARY | 2025-01-30 14:30 | XMS_ITS | Encounter Summary ---
Author Organization [facility] Address [address] [place] [address] Care Team Providers Care Peanut Shaker Name Role Phone Amanda Ford PULP TESTER Primary Care Provider Encounter Details DateTypeDepartmentCare Team (Latest Contact Info)Oppnnmfzmhp68/15/2025 2:30 PM EDTAncillary Procedure [facility] [place] [address] [place] [address] TSH (thyroid-stimulating hormone deficiency) Social History Tobacco UseTypesPacks/DayYears UsedDateSmoking Tobacco: Every DayCigarettes0.53 Smokeless Tobacco: NeverAlcohol UseStandard Drinks/WeekCommentsNot Currently0 (1 standard drink = 0.6 oz pure alcohol)caffeine: 1-2 cups per day tea Estimated Date of EjzifyxnUknktmspQgz25/06/2026Based on Est. Date of Conception Sex and Gender InformationValueDate RecordedSex Assigned at BirthFemale 01/19/2023 8:10 PM EDTLegal XrgSkogbt23/02/2023 9:50 PM EDTGender IdentityFemale 01/19/2023 8:10 PM EDTSexual OrientationNot on filedocumented as of this encounter Plan of Treatment DateTypeDepartmentCare Team (Latest Contact Info)Nfcnpbwyfwh52/04/2025 1:00 PM ESTRoutine [facility] [place] [address] [address] Les Martinez, DO [address] [facility] [place] [address] 08/21/2025 9:30 AM EDTOffice Visit [facility] [place] [facility] [address] [place] [address] Darleen Sinclair MD [address] [place] [address] documented as of this encounter Goals GoalPatient Goal TypeAssociated ProblemsRecent ProgressPatient-Stated?Author Reminders Care PlanOB RemindersNoOpen Scheduling, Backgrounddocumented as of this encounter Procedures Procedure NamePriorityDate/TimeAssociated DiagnosisCommentsUS OB FOLLOW UP TRANSABDOMINAL TRNDTEMIGxblvrd18/15/2025 3:10 PM EDT TSH (thyroid-stimulating hormone deficiency) documented in this encounter Results * US [...] Olivo MD Authorizing ProviderResult TypeResult StatusMima Duenas NPIMG OB US PROCEDURESFinal Result documented in this encounter Visit Diagnoses Diagnosis TSH (thyroid-stimulating hormone deficiency) Other specified acquired hypothyroidism documented in this encounter Additional Health Concerns Active ProblemsNoted DateDiagnosed DateOB Bzhkcroui24/07/2025 documented as of this encounter Care Teams Team MemberRelationshipSpecialtyStart DateEnd Date Amanda Ford NP [facility] [place] [address] PCP - GeneralFamily Ugiqkkua72/2/23documented as of this encounter
--- OUTSIDE RECORDS SUMMARY | 2025-02-06 14:30 | XMS_ITS | Encounter Summary ---
Author Organization [facility] Address [address] [place] [address] Care Team Providers Care Associate Store Director Name Role Phone Logan Amanda Nikole SENIOR PAINTER Primary Care Provider Reason for Visit * ReasonCommentsRoutine Visit Encounter Details DateTypeDepartmentCare Team (Latest Contact Info)Vsucfdgzggp15/22/2025 2:30 PM EDTRoutine [facility] [address] [place] [address] Jojo Ames PA [address] [facility] [address] [place], [facility] Third trimester ([facility]); 29 weeks gestation of ([facility]) Social History Tobacco UseTypesPacks/DayYears UsedDateSmoking Tobacco: Every DayCigarettes0.53 Smokeless Tobacco: NeverAlcohol UseStandard Drinks/WeekCommentsNot Currently0 (1 standard drink = 0.6 oz pure alcohol)caffeine: 1-2 cups per day teaPHQ-2Answer Date RecordedPatient Health Questionnaire-2 Gyjua173Estimated Date of FdzeouonNxkafmfcDlt21/06/2026Based on Est. Date of ConceptionSex and Gender InformationValueDate RecordedSex Assigned at NvddmStzdhp16/04/2023 8:10 PM EDTLegal EyrGmrlcc95/02/2023 9:50 PM EDTGender BxbmpoedVxestc45/04/2023 8:10 PM EDTSexual OrientationNot on filedocumented as of this encounter Last Filed Vital Signs Vital SignReadingTime TakenCommentsBlood Xyhynnyl495/7002/06/2025 2:43 PM EDT Pulse--Temperature--Respiratory Rate--Oxygen Saturation--Inhaled Oxygen Concentration--Epweow612 kg (285 lb 1.9 oz)02/06/2025 2:43 PM [...] is . Assessment/Plan ICD-10-CM 1. Third trimester ([facility]) Z34.93 2. 29 weeks gestation of ([facility]) Z3A.29 POCT urinalysis dipstick manually resulted [...] Plan of Treatment DateTypeDepartmentCare Team (Latest Contact Info)Skatwiwoveo08/04/2025 1:00 PM ESTRoutine [facility] [address] [place] [address] Les Martinez DO [address] [facility] [place] [address] 08/21/2025 9:30 AM EDTOffice Visit [facility] [address] [place] [address] Darleen Sinclair MD [address] [place] [address] documented as of this encounter Goals GoalPatient Goal TypeAssociated ProblemsRecent ProgressPatient-Stated?Author Reminders Care PlanOB RemindersNoOpen Scheduling, Backgrounddocumented as of this encounter Procedures Procedure NamePriorityDate/TimeAssociated DiagnosisCommentsPOCT URINALYSIS ITNKWATGRqmoxmz29/22/2025 2:49 PM EDT 29 weeks gestation of ([facility]) documented in this encounter Results * [...] Location / LateralityCollection Method / VolumeCollection TimeReceived NpxbTzvtb67/22/2025 2:49 PM EDT Narrative Authorizing ProviderResult TypeResult StatusElizabeth [facility] TEST ENTER/EDIT ORDERABLESFinal Result documented in this encounter Visit Diagnoses Diagnosis Third trimester ([facility]) state, incidental 29 weeks gestation of ([facility]) documented in this encounter Additional Health Concerns Active ProblemsNoted DateDiagnosed DateOB Efcobiqfp20/07/2025 documented as of this encounter Care Teams Team MemberRelationshipSpecialtyStart DateEnd Date Amanda Ford NP [address] [place] [address] PCP - GeneralFamily Ohgybtnv76/2/23documented as of this encounter
--- OUTSIDE RECORDS SUMMARY | 2025-02-10 13:51 | XMS_ITS | Encounter Summary ---
Author Organization [facility] tem Address [id number] [address] [place] [address] Care Team Providers Care Supervisor Food Checkers And Cashiers Name Role Phone No Pcp, No Pcp Primary Care Provider Unavailabl e Reason for Referral * Diagnostic Imaging (Routine) - Pending ReviewSpecialtyDiagnoses / Procedures Referred By ContactReferred To ContactMaternal and Medicine Diagnoses Hypothyroidism affecting in second trimester headache in second trimester Previous gastric bypass affecting , antepartum 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 ([facility] Procedures [facility] with or without consult Les Martinez DO [address] [place] [address] [place] [address] Phone: tel: fax: Maternal- Medicine at [facility] [address] [place] [address] Phone: tel: fax: Referral IDStatusReasonStart DateExpiration DateVisits RequestedVisits [id number] Encounter Details DateTypeDepartmentCare Team (Latest Contact Info)Jdxwzlmuyax84/23/2025Orders Only [employer] [facility] 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 Welder [employer] - [place] [address] [phone] Roslyn Griffin RN Hypothyroidism affecting in second trimester (Primary Dx); headache in second trimester; Previous gastric bypass affecting , antepartum; 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 ([facility]) Social History Tobacco UseTypesPacks/DayYears UsedDateSmoking Tobacco: FormerCigarettesStarted: 2023Smokeless Tobacco: NeverAlcohol UseStandard Drinks/WeekCommentsNot Currently 0 (1 standard drink = 0.6 oz pure alcohol)ChildcareAnswerDate RecordedChildcare Eblxlcd3405/20/2020mploymentAnswerDate PtyousgcKowatwrutpBqsljuv82/02/2021Hunger ScreeningAnswerDate RecordedWithin the past 12 months we worried whether our food would run out before we got money to buy more.Never True12/05/2024Within the past 12 months the food we bought just didn't last and we didn't have money to get more.Never True12/05/2024Purpose - LifeAnswerDate RecordedPurpose and direction in syjcCvcmdwo73/02/2021Estimated Date of DeliveryCommentsYes 6Based on Other Basis, IUI conception date 07/31/2024Sex and Gender InformationValueDate RecordedSex Assigned at BirthNot on fileLegal SexFemale 11/21/2014 12:10 PM EDTGender IdentityNot on fileSexual OrientationNot on file documented as of this encounter Plan of Treatment DateTypeDepartmentCare Team (Latest Contact Info)Jjshblgiqqu84/18/2025 11:15 AM ESTAppointment [facility] [address] [place] [address] NameTypePriorityAssociated DiagnosesOrder ScheduleUS MFM with or without consult ImagingRoutine Hypothyroidism affecting in second trimester headache in second trimester Previous gastric bypass affecting , antepartum 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 ([facility]) Expected: 02/07/2025, Expires: 02/07/2026documented as of this encounter Visit Diagnoses Diagnosis Hypothyroidism affecting in second trimester- Primary headache in second trimester Previous gastric bypass affecting , antepartum 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 ([facility]) documented in this encounter Care Teams Team MemberRelationshipSpecialtyStart DateEnd Date No P[place] [address] PCP - [facility]05/20/20documented as of this encounter
--- OUTSIDE RECORDS SUMMARY | 2025-02-10 13:51 | XMS_ITS | Encounter Summary ---
Author Organization [employer] tem Address [id number] [address] [place] [address] Care Team Providers Care Asphalt Layer Name Role Phone No Pcp, No Pcp Primary Care Provider Unavailabl e Encounter Details DateTypeDepartmentCare Team (Latest Contact Info)Cssoejydmar72/23/2025Travel Social History Tobacco UseTypesPacks/DayYears UsedDateSmoking Tobacco: FormerCigarettesStarted: 2023Smokeless Tobacco: NeverAlcohol UseStandard Drinks/WeekCommentsNot Currently 0 (1 standard drink = 0.6 oz pure alcohol)ChildcareAnswerDate RecordedChildcare Jhrhvud2505/20/2020mploymentAnswerDate YlycdkdhTdyypxuwbpJpvkrlu48/02/2021Hunger ScreeningAnswerDate RecordedWithin the past 12 months we worried whether our food would run out before we got money to buy more.Never True12/05/2024Within the past 12 months the food we bought just didn't last and we didn't have money to get more.Never True12/05/2024Purpose - LifeAnswerDate RecordedPurpose and direction in mfsmTopjhil23/02/2021Estimated Date of DeliveryCommentsYes 6Based on Other Basis, IUI conception date 07/31/2024Sex and Gender InformationValueDate RecordedSex Assigned at BirthNot on fileLegal SexFemale 11/21/2014 12:10 PM EDTGender IdentityNot on fileSexual OrientationNot on file documented as of this encounter Plan of Treatment DateTypeDepartmentCare Team (Latest Contact Info)Jkgounnpqdt65/18/2025 11:15 AM ESTAppointment [facility] - Ul[facility]ound [address] [place] [address] documented as of this encounter Visit Diagnoses Not on filedocumented in this encounter Care Teams Team MemberRelationshipSpecialtyStart DateEnd Date No Pcp, [place] [address] PCP - GeneralFamily Medicine05/20/20documented as of this encounter
--- OUTSIDE RECORDS SUMMARY | 2025-02-10 13:52 | XMS_ITS | Clinical Summary ---
Author Organization [facility] Address [address], [address] [place] [address] Care Team Providers Care Kiln Remover Name Role Phone Robin Marquez MD Primary Care Provider Allergies No known active allergies Medications MedicationSigDispense QuantityRefillsLast FilledStart DateEnd DateStatus levothyroxine (SYNTHROID) 175 MCG tablet TAKE 2 TABLETS BY MOUTH ONCE [id number] ALPRAZolam (XANAX) 0.5 MG tablet TAKE 1 TO 2 TABLETS BY MOUTH AT BEDTIME NEEDED FOR ANXIETY FOR 30 DAYS 03/14/2020Active calcium carbonate (TUMS) 500 MG chewable tablet Take 1 tablet by mouth dailyActive folic acid (FOLVITE) 1 MG tablet Indications:Low folateTake 1 tablet by mouth daily 30 tablet 10/01/2020ctive Additional Information Patient not taking.Reported on 11/10/2020 busPIRone (BUSPAR) 10 MG tablet 02/05/2021ctive lansoprazole (PREVACID) 30 MG delayed release capsule Take 30 mg by mouth dailyActive Multiple Vitamins-Minerals (THERAPEUTIC MULTIVITAMIN-MINERALS) tablet Take 1 tablet by mouth dailyActive D3 MAXIMUM STRENGTH 125 MCG (5000 UT) CAPS capsule TAKE 1 CAPSULE BY MOUTH ONCE DAILY WITH FOOD FOR 14 DAYS04/15/2021ctive Active Problems Patient Care Coordination No te [...] Post-op: Bariatric Multivitamin with iron and Calcium ProblemNoted DateDiagnosed DateRight upper quadrant abdominal pain03/30/2021 Omlcupmllxg32/13/2021Orthostatic etiiscuwa70/13/2021Obesity (BMI 30-39.9) 02/09/2021Obesity, Class III, BMI 40-49.9 (morbid obesity)11/10/2020hronic low back pain11/10/2020tatus post laparoscopic sleeve caugwspnayg18/19/2021Vitamin D oripnihqwo60/27/5074Pmzqajgaxzphef78/20/2019Bipolar disease, zysrzzd2812/05/2018 Plantar fasciitis, dpzyhflou58/20/2019Marijuana use12/05/2018 Resolved Problems ProblemNoted DateDiagnosed DateResolved DateMorbid obesity with BMI of 50.0- 59.9, adultMorbid obesity with BMI of 60.0-69.9, adult Family History Medical HistoryRelationNameCommentsHigh Blood PressureFatherOtherMotherOther SisterRelationNameStatusCommentsFatherAlivethyroidMotherAlivethyroidSisterOther thyroid Social History Tobacco UseTypesPacks/DayYears UsedDateSmoking Tobacco: NeverSmokeless Tobacco: NeverAlcohol UseStandard Drinks/WeekCommentsNo0 (1 standard drink = 0.6 oz pure alcohol)CommentsNoSex and Gender InformationValueDate RecordedSex Assigned at BirthNot on fileLegal TikChxjym87/26/2015 7:37 PM ESTGender Identity Not on fileSexual OrientationNot on file Last Filed Vital Signs Vital SignReadingTime TakenCommentsBlood Mtbbbksj437/6001/ 2:44 PM EST Uusmc5114/27/2022 2:44 PM FHYIrrlucbtqpo58.7 ??C (98.1 ??F)03/30/2021 5:10 PM ESTRespiratory Mthd9066 5:10 PM ESTOxygen Nljahzncam23%03/30/2021 5:10 PM ESTInhaled Oxygen Concentration--Aslhno79 kg (205 lb)09/04/2021 9:27 AM EDT Cnnfsw717.9 cm (6')09/04/2021 9:27 AM EDTBody Mass Index27.8009/04/2021 9:27 AM EDT Plan of Treatment Not on file Insurance Advance Directives * Full Code (Latest Code Status on File) Date ActivatedDate InactivatedComments05/06/2020 4:42 PM05/08/2020 3:13 PM Care Teams Team MemberRelationshipSpecialtyStart DateEnd Date Robin Marquez MD [address] [id number] PCP - GeneralFamily Medicine10/10/18
--- OUTSIDE RECORDS SUMMARY | 2025-02-10 13:52 | XMS_ITS | Encounter Summary ---
Author Organization [facility] Address [address] [place] [address] Care Team Providers Care Fitting Room Inspector Name Role Phone Amanda Ford COMPUTATOR Primary Care Provider Encounter Details DateTypeDepartmentCare Team (Latest Contact Info)Eesdujobccb71/16/2025bstract [facility] [place] [facility] [address] [place] [phone] Les Martinez DO [address] [place], [facility]11 Social History Tobacco UseTypesPacks/DayYears UsedDateSmoking Tobacco: Every DayCigarettes0.53 Smokeless Tobacco: NeverAlcohol UseStandard Drinks/WeekCommentsNot Currently0 (1 standard drink = 0.6 oz pure alcohol)caffeine: 1-2 cups per day tea Estimated Date of KjmktjepLxenjmwzHyu88/06/2026Based on Est. Date of Conception Sex and Gender InformationValueDate RecordedSex Assigned at BirthFemale 01/19/2023 8:10 PM EDTLegal VcoQmapgo00/02/2023 9:50 PM EDTGender IdentityFemale 01/19/2023 8:10 PM EDTSexual OrientationNot on filedocumented as of this encounter Plan of Treatment DateTypeDepartmentCare Team (Latest Contact Info)Rjykbvikmjq72/04/2025 1:00 PM ESTRoutine [facility] [address] [place] [address] Les Martinez, [address] [place] [address] 08/21/2025 9:30 AM EDTOffice Visit [facility] [address] [place] [address] Darleen Sinclair MD [address] [place] [address] documented as of this encounter Goals GoalPatient Goal TypeAssociated ProblemsRecent ProgressPatient-Stated?Author Reminders Care PlanOB RemindersNoOpen Scheduling, Backgrounddocumented as of this encounter Visit Diagnoses Not on filedocumented in this encounter Additional Health Concerns Active ProblemsNoted DateDiagnosed DateOB Pnypqssog16/07/2025 documented as of this encounter Care Teams Team MemberRelationshipSpecialtyStart DateEnd Date Amanda Ford NP [address] [address] PCP - GeneralFamily Djbwjzaq90/2/23documented as of this encounter
--- OUTSIDE RECORDS SUMMARY | 2025-02-10 13:52 | XMS_ITS ---
Author Organization [facility] [employer] [facility] (ClinicalSummary Clone) Address Unknown Care Team Providers Care Laborer Sawmill Name Role Phone Unavailable Primary Care Physician Unavailab le Results * [UNITY] CARRIER SCREEN Performed by: [employer] Component Value Range Date Sickle Cell Disease/Beta-Thalassemia/Hemoglobino pathies carrier screen NEGATIVE 10/19/2024 03:45 am UTCAlpha-Thalassemia carrier aiggqnZWSBMJPO95/04/2025 03:45 am UTCCystic Fibrosis carrier eiaiejFAJFRGCH47/04/2025 03:45 am UTCSpinal Muscular Atrophy carrier screenNEGATIVE 2 SMN1 copies, SNP not fbmsilj1410/19/2024 03:45 am UTCFor detailed report, see PDFSee PDF10/19/2024 03:45 am UTC 10/19/2024 03:45 am UTC Social History Observation Value Start Date End Date
--- OUTSIDE RECORDS SUMMARY | 2025-02-10 13:52 | XMS_ITS | Patient Health Record ---
Author Organization [employer] [facility] Address [address] [place] [address] Care Team Providers Care Uniform Patrol Police Officer Name Role Phone Jovani Jennifer Primary Care Provider Julieta Jefferson Unavailable [phone] Allergies No Known Allergies Reason For Referral No Information Medications Medication SIG (Take, Route, Frequency, Duration) Notes Start Date End Date Status lamoTRIgine 25 MG Tablet as directed Ora lly as directed; Duration: 30 day(s) 1 tab po daily x 2wks, then 1 BID x 2wks, then 2 AM and 1 PM x 2wks, then 2 BID x 2 wks, monitor rash/fever 02/05/2021 Not-Taking/PRNDocusate Sodium 100 MG Capsule1 capsule as needed Orally Once a dayActiveLaMICtal 200 MG Tablet1.5 tabs Orally hsNot-Taking/PRNLevothyroxine Sodium 50 MCG Tablet1 tablet in the morning on an empty stomach Orally Once a dayActiveZiprasidone HCl 40 MG Capsule1 capsule with food Orally at agisljr971- 200 caloriesNot-Taking/PRNQUEtiapine Fumarate 25 MG Tablet1 tablet at bedtime Orally Once a dayActivelamoTRIgine 200 MG Tablet1 tablet Orally Once a day; Duration: 90 daysActiveLansoprazole 30 MG Capsule Delayed Release1 capsule before a meal Orally Once a dayActiveCyclobenzaprine HCl 10 MG TabletTAKE 1 TABLET BY MOUTH ONCE DAILY AT BEDTIME NEEDED FOR 30 DAYS; Duration: 30 Not-Taking/PRNSertraline HCl 25 MG Tablet1 tablet Orally Once a day; Duration: 90 days5ActiveStrattera 40 MG Capsule1 capsule in the morning Orally Once a day; Duration: 30 day(s)01/25/2022Not-Taking/PRNXanax 0.5 MG Tablet1 tablet Orally TID PRNF41.Not-Taking/PRNProFe 391.3 (180 Fe) MG Capsule1 capsule Orally twice dailyActive Social History Tobacco Use: Social History Observation Description Date Details (start date - stop date) Current Smoker NA - NA Social History GeneralSocial InfoQuestionAnswerNotesTransition of Care:ER/UC/hospital since last office visit?NoSubstance abuse/mental health issues of patient/family Patient -Illegal Drug Uselast used cannabis bility to understand healthcare/treatmentPatient:GoodTobaccmario Screen:Are you a:current smoker? How often do you smoke cigarettes?every day? How many cigarettes a day do you smoke? 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) ActiveconfirmedProblemAnxiety state (398915721)Anxiety state, unspecified (F41.1)ActiveconfirmedProblemLong-term current use of drug therapy (316946416) High risk medications (not anticoagulants) long-term use (Z79.899)Active confirmedProblemBipolar affective disorder, currently manic, mild (170234342) Bipolar disorder, current episode manic without psychotic features, mild (F31.11)Activeconfirmed Vital Signs Heart Rate 84 /min 10/24/2024 Rflgsqxk45 %10/24/2024lood pressure fwxckayqd77 mm Hg10/24/20247733Yxscyy04 in 10/24/2024lood pressure mm Hg10/24/20241857Bmpyaa971.2 lbs10/24/2024MI 30.43 kg/m210/24/2024 Encounters Encounter Location Date Provider Diagnosis [address] [address] 04/25/2024 Julieta Jefferson Bipolar disorder, current episode manic without psychotic features, mild F31.11 and Anxiety state, unspecified F41.1 [facility] [address] [place] [address] 08/24/2024 Jennifer Hahn Bipolar disorder, current episode manic without psychotic features, mild F31.11 and Anxiety state, unspecified F41.1 [facility] [address] [place] [address] 09/25/2024 Jennifer Hahn Bipolar disorder, current episode manic without psychotic features, mild F31.11 [facility] [address] [place] [address] 10/24/2024 Jennifer Hahn Bipolar disorder, current episode manic without psychotic features, mild F31.11 [facility] [address] [address] 02/24/2024 Julieta Jefferson [facility] [address] [place] [address]/Marchip PetersBipolar disorder, current episode manic without psychotic features, mild F31.11 and Anxiety state, unspecified F41.1[facility] [address] [place] [address]/09/2024Mary PetersBipolar disorder, current episode manic without psychotic features, mild F31.11[facility] [address] [place] [address]/Mary PetersBipolar disorder, current episode manic without psychotic features, mild F31.11 Assessments Encounter Date Diagnosis (ICD Code) Assessment Notes Treatment Notes Treatment Clinical Notes Section Notes 08/24/2024 Bipolar disorder, cu rrent episode manic without psychotic features, mild (ICD-10 [...] tremors, muscle spasms, slowness of movement or jerkingof muscles. Stable The patient verbalizes understanding with [...] consented to the start/continuation of the treatment. 5Bipolar disorder, current episode manic without psychotic features, [...] tremors, muscle spasms, slowness of movement or jerkingof muscles. Stable The patient verbalizes understanding with [...] consented to the start/continuation of the treatment. 5Bipolar disorder, current episode manic without psychotic features, [...] tremors, muscle spasms, slowness of movement or jerkingof muscles. Stable The patient verbalizes understanding with [...] consented to the start/continuation of the treatment. 5Bipolar disorder, current episode manic without psychotic features, mild (ICD-10 - F31.11)5Bipolar disorder, current episode manic without psychotic features, mild (ICD-10 - F31.11)05/24/2024ipolar disorder, current episode manic without psychotic features, mild (ICD-10 - F31.11)08/24/2024 Anxiety state, unspecified (ICD-10 - F41.1)04/25/2024nxiety state, unspecified (ICD-10 - F41.1)04/25/2024ipolar disorder, current episode manic without psychotic features, mild (ICD-10 - F31.11) cont current [facility] . . Informed consent obtained: YES, we discussed the diagnosis/diagnoses, the treatment options, treatment(s) recommended vs. no treatment. We discussed risks and benefits of treatment options, treatmentrecommendations vs. no treatment. . . Discussed lifestyle/diet changes to help improve BMI. Recommend increasing activity, reducing portion sizes, limiting carbohydrates, increasing protein as appropriate. Discussed referral to dieticianif problem persists. . . Second generation antipsychotic medications can cause headache, drowsiness, agitation, dizziness, nausea, or extrapyramidal symptoms such as tremors, muscle spasms, slowness of movement or jerking ofmuscles. . . Currently at low risk for self harm. Denies ongoing feelings of hopelessness. Denies ongoing suicidal ideation, intent or plan in session. . 05/10/2024nxiety state, unspecified (ICD-10 - F41.1) Plan Of Treatment No Information Insurance Providers Payer Name Payer Address Payer Phone Subscriber Number Group Number Insured Name Patient Relationship to Insured Coverage Start Date Coverage End Date [facility] [address] [place] [phone] [id number] Aysha DEL CID - patient is the [id number]/19/2022 [facility] [address] [place] [id number], HEATHERSelf - patient is the geldrok2105/19/2022[facility]ERLY [facility] [address] [place] [id number], HEATHERSelf - patient is the [email or web address] [employer]-termed 05/18/22[address] [place] [id number], HEATHERSelf - patient is the /[facility] MEDICAID [facility] after [employer]- termed 05/18/22[address] [place] [id number] Aysha DEL CID - patient is the [id number]/ Medical (General) History Medical History History ICD Code obesity bipolarhypothyroidSurgical History Surgery Date(Month/Year) cholecystectomy gastric ETECEX64/2021
--- OUTSIDE RECORDS SUMMARY | 2025-02-10 13:52 | XMS_ITS | Encounter Summary ---
Author Organization [facility] Address [address] [place] [address] Care Team Providers Care Fire Production Operator Name Role Phone Amanda Ford BUTTONHOLE MACHINE OPERATOR Primary Care Provider Encounter Details DateTypeDepartmentCare Team (Latest Contact Info)Smzjvppxdgb46/24/2025bstract [facility] [address] [place] [address] [place] [phone] Kerrie Babcock MA Social History Tobacco UseTypesPacks/DayYears UsedDateSmoking Tobacco: Every DayCigarettes0.53 Smokeless Tobacco: NeverAlcohol UseStandard Drinks/WeekCommentsNot Currently0 (1 standard drink = 0.6 oz pure alcohol)caffeine: 1-2 cups per day teaPHQ-2Answer Date RecordedPatient Health Questionnaire-2 Aabyv325Estimated Date of YkcbkrfcRusmjuwoOng14/06/2026ased on Est. Date of ConceptionSex and Gender InformationValueDate RecordedSex Assigned at MmywkKdrdbt2023 8:10 PM EDTLegal MdmOhwojd83/02/2023 9:50 PM EDTGender EmlvmmuuDyifpi15/04/2023 8:10 PM EDTSexual OrientationNot on filedocumented as of this encounter Functional Status * Over the past 2 weeks, how often have you been bothered by any of the following problems?QuestionAnswerDate of AssessmentAuthorLittle interest or pleasure in doing thingsNot at all02/08/2025 1:09 PM Jojo Hannon, HOSTING ENGINEER Feeling down, depressed, or hopelessNot at all02/08/2025 1:09 PM Jojo Hannon LPNPatient Health Questionnaire-2 Hdtmv844 1:09 PM Jojo Hannon LPN documented as of this encounter Plan of Treatment DateTypeDepartmentCare Team (Latest Contact Info)Dqpzvkdlsap26/04/2025 1:00 PM ESTRoutine [facility] [address] [place] [address] Les Martinez DO [address] [facility] [address] [place], [place] [id number] 08/21/2025 9:30 AM EDTOffice Visit [facility] [place] [facility] [address] [place] [address] Darleen Sinclair MD [address] [place] [address] documented as of this encounter Goals GoalPatient Goal TypeAssociated ProblemsRecent ProgressPatient-Stated?Author Reminders Care PlanOB RemindersNoOpen Scheduling, Backgrounddocumented as of this encounter Visit Diagnoses Not on filedocumented in this encounter Additional Health Concerns Active ProblemsNoted DateDiagnosed DateOB Sgnenrdwb20/07/2025 documented as of this encounter Care Teams Team MemberRelationshipSpecialtyStart DateEnd Date Amanda Ford NP [address] [place] [address] PCP - GeneralFamily Zjaclozr81/2/23documented as of this encounter
--- OUTSIDE RECORDS SUMMARY | 2025-02-10 13:52 | XMS_ITS | Encounter Summary ---
Author Organization [facility] Address [address] [place] [address] Care Team Providers Care Ready To Wear Department Manager Name Role Phone Amanda Ford COMPENSATION/BENEFITS SPECIALIST Primary Care Provider Encounter Details DateTypeDepartmentCare Team (Latest Contact Info)Oldfordfmsx22/15/2025Travel Social History Tobacco UseTypesPacks/DayYears UsedDateSmoking Tobacco: Every DayCigarettes0.53 Smokeless Tobacco: NeverAlcohol UseStandard Drinks/WeekCommentsNot Currently0 (1 standard drink = 0.6 oz pure alcohol)caffeine: 1-2 cups per day tea Estimated Date of TxgqcxiiMyuhpanuYsg10/06/2026ased on Est. Date of Conception Sex and Gender InformationValueDate RecordedSex Assigned at BirthFemale 01/19/2023 8:10 PM EDTLegal VurQadptr10/02/2023 9:50 PM EDTGender IdentityFemale 01/19/2023 8:10 PM EDTSexual OrientationNot on filedocumented as of this encounter Plan of Treatment DateTypeDepartmentCare Team (Latest Contact Info)Vocioemjqjf31/04/2025 1:00 PM ESTRoutine [facility] [address] [facility] [place] [address] Les Martinez DO [address] [facility] [address] [place] [place], [place] [id number] 08/21/2025 9:30 AM EDTOffice Visit [facility] [place] [facility] [address] [place] [address] Darleen Sinclair MD [address] [place] [address] documented as of this encounter Goals GoalPatient Goal TypeAssociated ProblemsRecent ProgressPatient-Stated?Author Reminders Care PlanOB RemindersNoOpen Scheduling, Backgrounddocumented as of this encounter Visit Diagnoses Not on filedocumented in this encounter Additional Health Concerns Active ProblemsNoted DateDiagnosed DateOB Frfxeniyy98/07/2025 documented as of this encounter Care Teams Team MemberRelationshipSpecialtyStart DateEnd Date Amanda Ford NP [facility] [place] [address] PCP - GeneralFamily Ypvwptfb36/2/23documented as of this encounter
--- OUTSIDE RECORDS SUMMARY | 2025-02-10 13:52 | XMS_ITS | Clinical Summary ---
Author Organization [facility] Address [address] [place] [address] Care Team Providers Care Reel System Operator Name Role Phone Unavailable Primary Care Provider Unavailabl e Medications MedicationSigDispense QuantityRefillsLast FilledStart DateEnd DateStatus naltrexone 50 mg tablet Take 2 tablets by mouth two times a day.06/03/2023ctive lansoprazole (PREVACID) 30 mg capsule Take 30 mg by mouth once daily.Active acetaminophen (TYLENOL) 500 mg tablet Take 500 mg by mouth every 8 hours as needed for pain.12/06/2023ctive lamoTRIgine (LAMICTAL) 200 mg tablet Take 200 mg by mouth once daily.Active Polysaccharide Iron Complex (PRO FE) 180 mg iron cap Take 2 capsules by mouth two times a day.Active docusate sodium (COLACE) 100 mg capsule Take 100 mg by mouth two times a day as needed for constipation.Active busPIRone (BUSPAR) 15 mg tablet Take 15 mg by mouth two times a day.Active levothyroxine 50 mcg cap Take 50 mcg by mouth every morning.4Active QUEtiapine (SEROQUEL) 25 mg tablet Take 25 mg by mouth daily at bedtime.Active buPROPion SR (WELLBUTRIN SR) 150 mg 12 hr tablet Take 1 tablet by mouth once daily. 90 tablet 5Active PNV Combo No.47-Iron-FA #1-DHA (PNV-DHA) 27 mg iron-1 mg -300 mg Take 1 capsule by mouth once daily.5Active Active Problems CommentsYes No known active problems Family History Medical HistoryRelationCommentsDiabetesMaternal GrandfatherHTNMaternal GrandfatherRelationStatusCommentsMaternal Grandfather Social History Tobacco UseTypesPacks/DayYears UsedDateSmoking Tobacco: Never AssessedArea Deprivation IndexAnswerDate RecordedNational Score (1-100), lower number is lower lhho626202/28/2024State Score (1-10), lower number is lower vidm94404/29/2023 Data from: https://www.neighborhoodatlas.medicine.[facility]/. Last address used for ynsfcdalasg038 self vczyiepzf65/12/2024CommentsYesSex and Gender InformationValueDate RecordedSex Assigned at BirthNot on fileLegal SexFemale 07/13/2023 12:45 PM EDTGender IdentityNot on fileSexual OrientationNot on file Last Filed Vital Signs Vital SignReadingTime TakenCommentsBlood Pressure--Pulse--Temperature-- Respiratory Rate--Oxygen Saturation--Inhaled Oxygen Concentration--Kzxgjp10.3 kg (216 lb 11.4 oz)02/28/2024 2:03 PM DELMubimw137.3 cm (5' 11 )02/28/2024 2:03 PM ESTBody Mass Index30.23104/29/2023 2:03 PM EST Plan of Treatment Health MaintenanceDue DateLast DoneCommentsAnxiety Oibppxjgc02/17/2013Depression Lkhltkihe70/17/2013Hepatitis B Vaccine (1 of 3 - 19+ 3-dose series)2014 Cervical Cancer Bpfzbiyxj21/17/2016HPV Vaccine (1 - 3-dose SCDM series) 2022ovid-19 Vaccine ( - 2024- season)2024Influenza Vaccine (#1) 2024DTaP,Tdap,Td Vaccine (2 - Td or Tdap)/12/2022RSV Vaccine (1 - 1-dose 75+ series)2070HIV AdspgwzxmFbjrmmfug02/16/2024Hepatitis C EqcjkbnilJthdzhrpb39/16/2024 Procedures Procedure NamePriorityDate/TimeAssociated DiagnosisCommentsHIV 1/2 COMBO WITH REFLEX TO QTNVOBMGYYHHMGRZjhrvge99/16/2024 3:21 PM EST Special screening examination for infectious diseases HEPATITIS C ANTIBODY IA WITH VCPOKYDUSQXEZxvdaup16/16/2024 3:21 PM EST Special screening examination for infectious diseases from Last 3 Months or Most Recently Relevant to Health Maintenance Results * HIV 1/2 COMBO WITH REFLEX TO DIFFERENTIATION (04/02/2024 3:21 PM EST)Component ValueRef RangeTest MethodAnalysis TimePerformed AtPathologist SignatureHIV 12 Combo (Ag/Ab)UqpyleufuqqIlgkabmtbti04/17/2024 12:27 PM [facility] AB (Confirmatory)04/03/2024 12:27 PM [facility]Comment:Test not indicated.HIV Vibwfiwobzafks09/17/2024 12:27 PM [facility]: No evidence of HIV-1 or HIV-2 infection. Should recent infection be suspected, repeat testing may be considered 2-3 weeks after this draw. [place] Rev. Code 3701.243(E): This information has been disclosed to you from confidential records protected from disclosure by state law. ??You shall make no further disclosure of this information without the specific, written, and informed release of the individual to whom it pertains or as otherwise permitted by state law. A general authorization for the release of medical or other information is not sufficient for the purpose of the release of HIV test results or diagnoses. Specimen (Source)Anatomical Location / LateralityCollection Method / Volume Collection TimeReceived TimeBloodBLOOD SPECIMEN / UnknownVenipuncture / Unknown 04/02/2024 3:21 PM EST04/02/2024 3:22 PM EST Narrative Authorizing ProviderResult TypeResult StatusLilimino Hernandez APRN.CNPLABORATORY Final ResultPerforming OrganizationAddressCity/State/ZIP CodePhone Number [facility] [address] [place] [address], * HEPATITIS C ANTIBODY IA WITH CONFIRMATION (04/02/2024 3:21 PM EST)Component ValueRef RangeTest MethodAnalysis TimePerformed AtPathologist SignatureHep C Antibody EJPyjujsfyVgggmocy58/17/2024 11:20 AM [facility]:The result suggests no evidence of active infection with Hepatitis C virus. Should recent infectionbe suspected, repeat testing may be considered 4-6 weeks after this draw.Specimen (Source)Anatomical Location / Laterality Collection Method / VolumeCollection TimeReceived TimeBloodBLOOD SPECIMEN / UnknownVenipuncture / Tvwamlr9604/02/2024 3:21 PM EST04/02/2024 3:22 PM EST Narrative Authorizing ProviderResult TypeResult StatusShelly Hernandez APRN.CNPLABORATORY Final ResultPerforming OrganizationAddressCity/State/ZIP CodePhone Number [facility] [address] [facility] [address] [address], from Last 3 Months or Most Recently Relevant to Health Maintenance Insurance
--- OUTSIDE RECORDS SUMMARY | 2025-02-10 13:52 | XMS_ITS | Clinical Summary ---
Author Organization [facility] Address [address] [place] [address] Phone Care Team Providers Care Dentist Private Practice Name Role Phone Unavailable Primary Care Provider Unavailabl e Social History Tobacco UseTypesPacks/DayYears UsedDateSmoking Tobacco: Never Assessed CommentsUnknownSex and Gender InformationValueDate RecordedSex Assigned at Not on fileLegal JmeMwiizm95/26/2024 8:23 AM EDTGender IdentityNot on fileSexual OrientationNot on file Plan of Treatment Health MaintenanceDue DateLast DoneCommentsHIV Jugymynfl1995Lipid Panel 1995TSH Level1995MMR Vaccines (1 of 1 - Standard series)1996 Hepatitis C Gubewoktf99/17/2013Hepatitis B Vaccines (1 of 3 - 19+ 3-dose series) 2014HPV/Yzuppn9203/04/2016HPV Vaccines (1 - 3-dose standard series) 2022Influenza Vaccine (#1)5COVID-19 Vaccine (3 - 2024- season) 505/07/2020, 07/22/2020Yearly Adult Shfmksst40/07/2023 Cervical Cancer Ojfignwek23/04/2027Pap Smear/TaP/Tdap/Td Vaccines (2 - Td or Tdap)/12/2022Zoster Vaccines (1 of 2)2045 HIB VaccinesAged OutNo longer eligible based on patient's age to complete this topicHepatitis A VaccinesAged OutNo longer eligible based on patient's age to complete this topicIPV VaccinesAged OutNo longer eligible based on patient's age to complete this topicMeningococcal VaccineAged OutNo longer eligible based on patient's age to complete this topicPneumococcal Vaccine: Pediatrics and At-Risk Adult PatientsAged OutNo longer eligible based on patient's age to complete this topicRotavirus VaccinesAged OutNo longer eligible based on patient's age to complete this topic Insurance
--- OUTSIDE RECORDS SUMMARY | 2025-02-10 13:52 | XMS_ITS | Encounter Summary ---
Author Organization [facility] Address [address] [place] [address] Care Team Providers Care Greenhouse Or Nursery Transplanter Name Role Phone Amanda Ford BENDER HAND Primary Care Provider Encounter Details DateTypeDepartmentCare Team (Latest Contact Info)Chnkhcaonup21/22/2025amboo flowsheet GUDELIA HERNANDEZ [address] [facility] [place] [phone] Jojo Ames PA [address] [facility] [address] [place], [facility] Social History Tobacco UseTypesPacks/DayYears UsedDateSmoking Tobacco: Every DayCigarettes0.53 Smokeless Tobacco: NeverAlcohol UseStandard Drinks/WeekCommentsNot Currently0 (1 standard drink = 0.6 oz pure alcohol)caffeine: 1-2 cups per day tea Estimated Date of DtvrcjemWvnjvjtbBek73/06/2026Based on Est. Date of Conception Sex and Gender InformationValueDate RecordedSex Assigned at BirthFemale 01/19/2023 8:10 PM EDTLegal KlkOhmmqw60/02/2023 9:50 PM EDTGender IdentityFemale 01/19/2023 8:10 PM EDTSexual OrientationNot on filedocumented as of this encounter Plan of Treatment DateTypeDepartmentCare Team (Latest Contact Info)Wfhckzoijbo76/04/2025 1:00 PM ESTRoutine [facility] [place] [facility] [address] [facility] [place] [phone] Les Martinez, [address] [facility] [place] [address] 08/21/2025 9:30 AM EDTOffice Visit [facility] [place] [facility] [address] [place] [address] Darleen Sinclair MD [address] [place] [address] documented as of this encounter Goals GoalPatient Goal TypeAssociated ProblemsRecent ProgressPatient-Stated?Author Reminders Care PlanOB RemindersNoOpen Scheduling, Backgrounddocumented as of this encounter Visit Diagnoses Not on filedocumented in this encounter Additional Health Concerns Active ProblemsNoted DateDiagnosed DateOB Fpfbtfdlb55/07/2025 documented as of this encounter Care Teams Team MemberRelationshipSpecialtyStart DateEnd Date Amanda Ford NP [address] [facility] [place] [address] PCP - GeneralFamily Zxoxkfgv02/2/23documented as of this encounter
--- OUTSIDE RECORDS SUMMARY | 2025-02-10 13:52 | XMS_ITS | Clinical Summary ---
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 Medications MedicationSigDispense QuantityRefillsLast FilledStart DateEnd DateStatus docusate sodium (Colace) 100 MG capsule 1 (one) time each day at the same time3Active lansoprazole (Prevacid) [address] capsule Take 30 mg by mouth DailyActive QUEtiapine (SEROquel) 25 MG tablet Take 25 mg by mouth at bedtimeActive levothyroxine (Synthroid, Levoxyl) 50 MCG tablet Indications:Nontoxic goiterTake 1 tablet (50 mcg) by mouth in the morning. Take before meals. 90 tablet /6Active sertraline (Zoloft) 25 MG tablet Take 25 mg by mouth 1 (one) time each day at the same time5Active ProFe 391.3 (180 Fe) MG capsule Indications:Other iron deficiency anemiaTAKE 1 CAPSULE BY MOUTH TWICE DAILY IN THE MORNING AND BEFORE BEDTIME 60 capsule 5Active Active Problems ProblemNoted DateDiagnosed TxalIpimikrqyie91/12/2024Estimated Date of QwxuegurPbzbfaobFis19/06/2026Based on Est. Date of Conception Encounters DateTypeDepartmentCare HvhyJenoptokrcs88/24/2025Patient Outreach [facility] [address] [place] [address] Jojo Be LPN 02/08/2025bstract [facility] [address] [place] [address] Kerrie Babcock MA 02/06/2025 2:30 PM EDTRoutine [facility] [address] [place] [address] Jojo Ames PA Third trimester ([facility]); 29 weeks gestation of ([facility])02/06/2025amboo flowsheet [facility] [address] [place] [address] Jojo Ames PA 01/31/2025bstract [facility] [address] [place] [address] Basim Martinez DO 01/30/2025 2:30 PM EDTAncillary Procedure [facility] [address] [place] [address] TSH (thyroid-stimulating hormone deficiency)01/30/20252050Mzxoqh85/06/2025Telephone [facility] [address] [place] [address] Marsha Asif MA 01/16/2025 11:20 AM EDTRoutine [facility] [address] [place] [address] Mima Duenas NP 26 weeks gestation of ([facility]); Second trimester ([facility]); TSH (thyroid-stimulating hormone deficiency)01/16/2025amboo flowsheet [facility] [address] [place] [address] Mima Duenas NP 01/11/2025linisync Result Encounter [facility] External Department Unsolicited Basim Martinez, DO 01/11/2025Telephone [facility] [address] [place] [address] Basim Martinez, DO 01/10/2025Telephone [facility] [address] [place] [address] Jojo Ames PA 01/09/2025linisync Result Encounter [facility] External Department Unsolicited Jojo Ames PA 01/08/2025Telephone [facility] [address] [address] Jojo Ames PA 01/07/2025bstract [facility] [address] [place] [address] Basim Martinez, DO 12/19/2024 10:00 AM EDTRoutine [facility] [address] [place] [phone] Jojo Ames, PA 22 weeks gestation of ([facility]); Second trimester ([facility]); Thyroid disease ; H/O gastric sleeve; H/O iron deficiency anemia; Diabetes mellitus ekvhmnumx31/03/2025amboo flowsheet [facility] [address] [place] [address] Jojo Ames PA 12/15/2024linisync Result Encounter [facility] External Department Unsolicited Basim Martinez, DO 12/12/20245760Jixyan76/20/2025External Result Encounter [facility] [address] [place] [address] Basim Martinez, DO 12/04/2024 8:30 AM EDTAncillary Procedure [facility] [address] [place] [address] Screening, , for anatomic survey ([facility])12/02/2024External Result Encounter [facility] External Department Unsolicited Eduardo Cruz, DO 11/30/2024Telephone [facility] [address] [place] [place] [address] Lisa Campbell LPN 11/20/2024 8:40 AM EDTRoutine [facility] [address] [place] [address] Basim Martinez, Well woman exam with routine gynecological exam; Exposure to STD; Second trimester ([facility]); 18 weeks gestation of ([facility]); Need for maternal serum alpha-protein (MSAFP) screening ([facility]); Screening, , for anatomic survey ([facility]); Thyroid yzsxkwu4411/20/2024External Result Encounter [facility] External Department Unsolicited Basim Martinez, 5Clinisync Result Encounter [facility] External Department Unsolicited Basim Martinez, DO 5Bamboo flowsheet [facility] [address] [place] [address] Basim Martinez, from Last 3 Months Immunizations ImmunizationAdministration DatesNext YubFwzy5312/25/2022 Family History Medical HistoryRelationNameCommentsDiabetesFatherGreg spearsHypertensionFather Delbert spearsThyroid diseaseFatherGreg spearsObesityMotherMary spearsSkin cancer MotherMary spearsThyroid diseaseMotherMary spearsDiabetesPaternal Grandfather Ayaan PritchardstevanRelationNameStatusCommentsFatherGreg spearsAliveMotherMary nunez AlivePaternal GrandfatherLarry FritzSisterAlive Social History Tobacco UseTypesPacks/DayYears UsedDateSmoking Tobacco: Every DayCigarettes0.53 Smokeless Tobacco: Never Tobacco Cessation:Ready to Q uit: Not Asked; Counseling Given: Not Answered Alcohol UseStandard Drinks/WeekCommentsNot Currently0 (1 standard drink = 0.6 oz pure alcohol)caffeine: 1-2 cups per day teaPHQ-2AnswerDate RecordedPatient Health Questionnaire-2 Cwkoi250Estimated Date of Delivery FzioolseFrb45/06/2026ased on Est. Date of ConceptionSex and Gender Information ValueDate RecordedSex Assigned at VkuftTnxoao19/04/2023 8:10 PM EDTLegal Sex Qssnub9501/17/2023 9:50 PM EDTGender EraezhbdWhgtxo38/04/2023 8:10 PM EDTSexual OrientationNot on file Last Filed Vital Signs Vital SignReadingTime TakenCommentsBlood Vqdggyvh150/7002/06/2025 2:43 PM EDT Fejhc800508/22/2024 10:04 AM EDTTemperature--Respiratory Rarq711108/22/2024 10:04 AM EDTOxygen Gnaedfgnoy67%08/22/2024 10:04 AM EDTInhaled Oxygen Concentration-- Zxqanb881 kg (285 lb 1.9 oz)02/06/2025 2:43 PM YZPNtxkfg658.3 cm (5' 11 ) 08/22/2024 10:04 AM EDTBody Mass Index39.77008/22/2024 10:04 AM EDT Plan of Treatment DateTypeDepartmentCare Team (Latest Contact Info)Mezcxgqysla55/04/2025 1:00 PM ESTRoutine [facility] [address] [place] [address] Basim Martinez DO [address] [place] [address] 08/21/2025 9:30 AM EDTOffice Visit [facility] [address] [place] [address] Darleen Sinclair MD [address] [place] [address] Health MaintenanceDue DateLast DoneCommentsInfluenza Vaccine (#1)12/17/2024 Goals GoalPatient Goal TypeAssociated ProblemsRecent ProgressPatient-Stated?Author Reminders Care PlanOB RemindersNoOpen Scheduling, Background Procedures Procedure NamePriorityDate/TimeAssociated DiagnosisCommentsPOCT URINALYSIS RUWMNMRSOsyxtth79/22/2025 2:49 PM EDT 29 weeks gestation of ([facility]) US OB FOLLOW UP TRANSABDOMINAL DXJINOELSwvepqu02/15/2025 3:10 PM EDT TSH (thyroid-stimulating hormone deficiency) POCT URINALYSIS SFXXQJDMMldfwtf98/01/2025 11:40 AM EDT 26 weeks gestation of ([facility]) ALL THYROID STIM JMPICRPJwpcraq73/26/2025 2:48 PM EDT GLUCOSE 1 BNENNbkpjoh85/24/2025 12:00 PM EDT ALL CBC WITH AUTO SPRSCoiobcg64/24/2025 12:00 PM EDT POCT URINALYSIS RLOZVAASAcgrcqt83/03/2025 10:11 AM EDT 22 weeks gestation of ([facility]) Second trimester ([facility]) [facility] URINE MICROSCOPIC CSZOGvccbtf96/30/2025 11:24 PM EDT TBH UA (CLEAN/CATCH) MAINSPRING STRIP INSPECTOR/MICRO IF IND.Fxpvjtb6512/15/2024 11:24 PM EDT US OB 14+ WEEKS ANATOMY SCAN12/05/2024 4:12 PM EDT US OB 14+ WEEKS ANATOMY QITOCqphbqu05/19/2025 9:26 AM EDT Screening, , for anatomic survey ([facility]) URINALYSIS GIEETMHCDS17/17/2025 11:40 PM EDT RECURRENT VAGINITIS (HTRX)Lcwfuov6411/20/2024 10:51 AM EDT AFP, SERUM, OPEN SPINA TBTSTEZvlqhpz49/05/2025 10:37 AM EDT ALL THYROID STIM HIZXAOEVqmphms73/05/2025 10:37 AM EDT POCT URINALYSIS TPZPAVODLzgyece92/05/2025 9:12 AM EDT Second trimester ([facility]) from Last 3 Months Results * (ABNORMAL) POCT urinalysis dipstick manually resulted (02/06/2025 2:49 PM EDT) Only the most recent of4 resultswithin the time period is included. ComponentValueRef RangeTest MethodAnalysis TimePerformed AtPathologist Signature Color, UAYellowClarity, UAClearGlucose, UANegativeNegative - 2000(110) ++++ mg/dLBilirubin, UANegativeNegative - 4(70) +++ mg/dLKetones, UAPositiveNegative - 160(16) ++++ mg/dLSpec Grav, UA1.0101 - 1.03Blood, UANegativeNegative - 50 Yehuda/mcLpH, UA6.55 - 9Protein, UANegativeNegative - 2000(20) ++++ mg/dL Urobilinogen, UA2.00.2 - 12 mg/dLLeukocytes, UATraceNegative - 500+++ Kourtney/mcL Nitrite, UANegativeNegative - PositiveSpecimen (Source)Anatomical Location / LateralityCollection Method / VolumeCollection TimeReceived DquoHccsv32/22/2025 2:49 PM EDT Narrative Authorizing ProviderResult TypeResult StatusAmy Memorial Hospital of Rhode IslandOINT OF CARE TEST ENTER/EDIT ORDERABLESFinal Result * US OB follow up transabdominal approach [...] StatusMima Duenas NPIMG OB US PROCEDURESFinal Result * ALL THYROID STIM HORMONE (01/11/2025 2:48 PM EDT) Only the most recent of2 resultswithin the time period is included. ComponentValueRef RangeTest MethodAnalysis TimePerformed AtPathologist Signature THYROID STIMULATING HORMONE2.4490.358 - 3.740 uIU/mLTBHSpecimen (Source) Anatomical Location / LateralityCollection Method / VolumeCollection Time Received Time01/11/2025 2:48 PM EDT01/11/2025 2:51 PM EDT Narrative CLIN[facility]NC - 01/11/2025 3:35 PM EDT Authorizing ProviderResult TypeResult StatusBasim Martinez DOCLINISYNCFinal Result Performing OrganizationAddressCity/State/ZIP CodePhone Number [facility] * GLUCOSE 1 HOUR (01/09/2025 12:00 PM EDT)ComponentValueRef RangeTest Method Analysis TimePerformed AtPathologist SignatureGLUCOSE 1 GBYU242<130 mg/dLTBH Specimen (Source)Anatomical Location / LateralityCollection Method / Volume Collection TimeReceived Time01/09/2025 12:00 PM EDT01/09/2025 12:02 PM EDT Narrative CL[facility]NC - 01/09/2025 12:55 PM EDT Authorizing ProviderResult TypeResult StatusAmy Kwaku [facility] BLOOD ORDERABLES Final ResultPerforming OrganizationAddressCity/State/ZIP CodePhone Number [facility] * (ABNORMAL) ALL CBC WITH AUTO DIFF (01/09/2025 12:00 PM EDT)ComponentValueRef RangeTest MethodAnalysis TimePerformed AtPathologist SignatureTBH WBC11.8(H) 4.0 - 11.0 10 3/uLTBHTBH RBC4.06(L)4.20 - 5.40 10 6/uLTBHTBH HGB12.012.0 - 16.0 g/dLTBHTBH HCT35.6(L)36.0 - 48.0 %TBHTBH MCV87.781.0 - 99.0 fLTBHTBH MCH 29.626.7 - 34.0 pgTBHTBH MCHC33.729.9 - 35.2 g/dLTBHTBH RDW13.211.0 - 15.0 % TBHTBH CNO675987 - 450 10 3/uLTBHTBH MPV8.7(L)9.5 - 13.5 fLTBHNEUTROPHILS PERCENT AUTO71.843.0 - 75.0 %TBHLYMPHOCYTES PERCENT AUTO19.7(L)20.5 - 60.0 % TBHMONOCYTES PERCENT AUTO6.21.7 - 12.0 %TBHTBH EO %1.20.9 - 7.0 %TBHBASOPHILS PERCENT AUTO0.30.2 - 2.0 %TBHIMMATURE GRANULOCYTES PCT AUTO0.8(H)0.0 - 0.5 % TBHNEUTROPHILS ABSOLUTE AUTO8.5(H)1.4 - 6.5 10 3/uLTBHLYMPHOCYTES ABSOLUTE AUTO2.31.2 - 3.8 10 3/uLTBHMONOCYTES ABSOLUTE AUTO0.70.3 - 0.8 10 3/uLTBHTBH EO #0.10.0 - 0.7 10 3/uLTBHBASOPHILS ABSOLUTE AUTO0.00.0 - 0.1 10 3/uLTBH IMMATURE GRANULOCYTES ABS AUTO0.10(H)0.00 - 0.03 10 3/uLTBHSpecimen (Source) Anatomical Location / LateralityCollection Method / VolumeCollection Time Received Time01/09/2025 12:00 PM EDT01/09/2025 12:02 PM EDT Narrative PETERISYNC - 01/09/2025 12:31 PM EDT Authorizing ProviderResult TypeResult StatusAmy Kwaku PACLINISYNCFinal Result Performing OrganizationAddressty/State/ZIP CodePhone Number CLINISYTN [facility] * [facility] URINE MICROSCOPIC ONLY (12/15/2024 11:24 PM EDT)ComponentValueRef Range Test MethodAnalysis TimePerformed AtPathologist SignatureTBH WBCNONE SEENNONE SEEN #/HPFTBHTBH RBC0-20 - 2 #/HPFTBHBACTERIA URINENONE SEENNONE SEEN #/HPFTBH MUCUS URINENONE SEENNONE SEENTBHSQUAMOUS EPITHELIAL CELL URINERARENONE/RARE #/LPFTBHCRYSTALS SEEN?None SeenNone Seen #/HPFTBHCAST SEEN?NONE SEENNONE SEEN #/LPFTBHURINE CULTURE INDICATEDNOTBHSpecimen (Source)Anatomical Location / LateralityCollection Method / VolumeCollection TimeReceived Time12/15/2024 11:24 PM EDT12/15/2024 11:40 PM EDT Narrative DEBBITN - 12/15/2024 11:50 PM EDT Authorizing ProviderResult TypeResult StatusCorey Juan DOCLINISYNCFinal Result Performing OrganizationAddressCity/State/ZIP CodePhone Number [facility] * (ABNORMAL) [facility] UA (CLEAN/CATCH) MAINSPRING STRIP INSPECTOR/MICRO IF IND. (12/15/2024 11:24 PM EDT) ComponentValueRef RangeTest MethodAnalysis TimePerformed AtPathologist SignatureCOLOR URINELT. YELLOWYELLOWTBHCLARITY URINECLEARCLEARTBHSPECIFIC GRAVITY URINE1.0151.005 - 1.025TBHPH URINE5.55.0 - 9.0TBHPROTEIN URINENEGATIVE NEG/TRACE mg/dLTBHGLUCOSE URINE UANEGATIVENEGATIVE mg/dLTBHBILIRUBIN URINE NEGATIVENEGATIVETBHKETONES URINENEGATIVENEGATIVE mg/dLTBHBLOOD URINESMALL(A) NEGATIVETBHNITRITE URINENEGATIVENEGATIVETBHUROBILINOGEN URINE0.20.2 - 1.0 EU/dLTBHLEUKOCYTE ESTERASE URINENEGATIVENEGATIVETBHURINE MICROSCOPIC INDICATED YESTBHSpecimen (Source)Anatomical Location / LateralityCollection Method / VolumeCollection TimeReceived Time12/15/2024 11:24 PM EDT12/15/2024 11:40 PM EDT Narrative JEREMY - 12/15/2024 11:50 PM EDT Authorizing ProviderResult TypeResult StatusCorechip Martinez DOCLINISYNCFinal Result Performing OrganizationAddressCity/State/ZIP CodePhone Number JEREMY TB * US OB 14+ weeks anatomy scan (12/05/2024 4:12 PM EDT) Only the most recent of2 resultswithin the time period is included. Anatomical RegionLateralityModalityBodyUltrasoundSpecimen (Source)Anatomical Location / LateralityCollection Method / VolumeCollection TimeReceived Time 12/05/2024 4:12 PM EDT Narrative 12/05/2024 4:11 PM EDT THIS EXAM WAS PERFORMED AT [facility] NAME: ??MARIA EUGENIA HINDS : 1995 SEX: F Accession Number: [id number] ORDERING PHYSICIAN: ENRIKE LINDQUIST REFERRING PHYSICIAN: BASIM MARTINEZ Coding Procedures ? 32655: Ultrasound, uterus, real time with image documentation, and maternal evaluation ? plus detailed anatomic examination, transabdominal approach;single or first gestation ? 47808: Transvaginal Ultrasound (OB) Indication Screening for Anatomic Survey, Screening for cervical length, resulting from assisted reproductive technology- IUI, History of Gastric sleeve, Obesity in . History OB History ? 1. Para 0 ? [id number] Current Cell free DNA ?low risk analysis Maternal Assessment Physical Exam ??Height 180 cm, 5 ft 11 in. Weight 117 kg, 257 lb. Initial weight 102 kg, 224 lb. BMI 35.84 kg/m???. Initial ? BMI 31.24 kg/m???. Weight gain 15 kg, 33 lb Method Transabdominal and transvaginal ultrasound examination. View: Suboptimal view: limited by position and maternal body habitus. [place] . Number of fetuses: 1 Dating LMP on: ?07/19/2024 GA by LMP ?19 w + 6 d DARWIN by LMP: ?04/25/2025 Conception on: 07/31/2024 GA by conception ? 20 w + 1 d DARWIN by conception: ? 04/23/2025 Previous Ultrasound on: ?08/28/2024 Type of prior assessment: ?GA GA at prior assessment date ?5 w + 6 d GA by previous U/S ? 20 w + 0 d DARWIN by previous Ultrasound: ?04/24/2025 Ultrasound examination on: ? 12/05/2024 GA by U/S based upon: ??AC, BPD, Femur, HC GA by U/S ?20 w + 5 d DARWIN by U/S: ?04/19/2025 Assigned: ?based on the conception date, selected on 12/05/2024 Assigned GA (weeks days) ? 20 w + 1 d Assigned DARWIN: ??04/23/2025 General Evaluation Cardiac activity Present. FHR 146 bpm. Presentation: breech Placenta: Placental site: posterior, away from cervical os Umbilical cord: Cord vessels: 3 vessel cord. Insertion site: normal insertion Amniotic fluid: Amount of AF: normal amount. MVP 5.2 cm Biometry Standard BPD ?47.4 mm 20w 2d 58% Hadlock OFD ?62.6 mm 21w 3d 88% Gayle HC ? 177.0 mm ?20w 1d 44% Hadlock Cerebellum tr ??20.1 mm 19w 2d 45% Hill Nuchal fold ?4.0 mm AC ? 163.5 mm ?21w 3d 83% Hadlock Femur ??34.7 mm 21w 0d 70% Hadlock Humerus ?32.3 mm 20w 6d 78% Gayle HC / AC ?1.08 ? 7% Hadlock EFW ?396 g ?89% Hadlock EFW (lb) ? 0 lb EFW (oz) ? 14 oz EFW by: ?Hadlock (OKU-XR-[id number]-FL) Extended Tibia ??27.0 mm 19w 5d 43% Gayle Claim Investigator ? 8.2 mm CM ? 4.2 mm ?? 24% Nicolaides Nasal bone ? 5.4 mm ?? 6% [place] Head / Face / Neck Cephalic index 0.76 ? 19% Nicolaides Nasal bone: ?present Extremities / Bony Struc FL / BPD ? 0.73 ? 77% Hadlock FL / HC ?0.20 ? 90% Hadlock FL / AC ?0.21 ? 32% Hadlock Other Structures FHR ?146 bpm Anatomy The following structures appear normal: Head/Neck: Cranium. Lateral ventricles. Choroid plexus. Midline falx. Cavum septi pellucidi. Cerebellum. Cisterna ? magna. Parenchyma. Vermis. ? Neck. Nuchal fold. Face: Nasal bone. Maxilla. Mandible. Orbits. Heart/Thorax: Situs. Cardiac rhythm. ? Right lung. Left lung. Abdomen: Abdom. wall. Cord insertion. Stomach. Kidneys. Bladder. Small bowel. Large bowel. Right renal artery. ? Left renal artery. Spine: Cervical spine. Thoracic spine. Lumbar spine. Sacral spine. Extremities/Skeleton: Right upper arm. Right forearm. Right hand. Left upper arm. Left forearm. Right upper leg. Right lower ? leg. Left upper leg. The following structures could not be adequately visualized: Face ?? Lips. Profile. Nose. Heart / Thorax 4-chamber view. Aortic arch view. Interventricular septum. Cardiac position. Cardiacaxis. Cardiac size. ? Diaphragm. Extremities / ??Left hand. Left lower leg. Skeleton The following structures could not be examined: Heart / Thorax RVOT view. LVOT view. 3-vessel view. 9-kfkzyp-swuzbke view. Bicaval view. Ductal arch view. Great ? vessels. Abdomen ?Genitals. Extremities / ??Right foot. Left foot. Skeleton Maternal Structures Uterus Visualized Cervix Visualized ? Approach - Transvaginal: Cervical length 3.21 cm Right Ovary ?Not visualized Left Ovary ? Not visualized Cul de Sac ? Visualized. No free fluid visualized Impression Single viable intrauterine consistent with 20w 1d with an DARWIN of 04/23/2025. Transvaginal cervical length measures 3.21 cm. Amniotic fluid MVP measures 5.2 cm. Recommendations Please see [facility] documentation from today. The patient is [...] - 12/05/2024 THIS EXAM WAS PERFORMED AT [facility] NAME: MARIA EUGENIA HINDS : 1995 SEX: F Accession Number: [id number] ORDERING PHYSICIAN: ENRIKE LINDQUIST REFERRING PHYSICIAN: BASIM MARTINEZ Coding Procedures 92917: Ultrasound, uterus, real time with image documentation, and maternal evaluation plus detailed anatomic examination, transabdominalapproach;single or first gestation 33936: Transvaginal Ultrasound (OB) Indication Screening for Anatomic Survey, Screening for cervical length, Pregnancyresulting from assisted reproductive technology- IUI, History of Gastric sleeve, Obesity in . History OB History 1. Para 0 [id number] Current Cell free DNA low risk analysis Maternal Assessment Physical Exam Height 180 cm, 5 ft 11 in. Weight 117 kg, 257 lb. Initialweight 102 kg, 224 lb. BMI 35.84 kg/m???. Initial BMI 31.24 kg/m???. Weight gain 15 kg, 33 lb Method Transabdominal and transvaginal ultrasound examination. View: Suboptimalview: limited by position and maternal body habitus. [place] . Number of fetuses: 1 Dating LMP on: 07/19/2024 GA by LMP 19 [...] 1 d Assigned DARWIN: 04/23/2025 General Evaluation Cardiac activity Present. FHR 146 bpm. Presentation: breech Placenta: Placental site: posterior, away from cervical os Umbilical cord: Cord vessels: 3 vessel cord. Insertion site: normalinsertion Amniotic fluid: Amount of AF: normal amount. MVP 5.2 cm Biometry Standard BPD 47.4 mm 20w 2d 58% [...] EFW (oz) 14 oz EFW by: Hadlock (TOJ-LC-HV-FL) Extended Tibia 27.0 mm 19w 5d 43% Gayle Claim Investigator 8.2 mm CM 4.2 mm 24% Nicolaides Nasal bone 5.4 mm 6% [place] Head / Face / Neck Cephalic index 0.76 19% Nicolaides Nasal bone: present Extremities / Bony Struc FL / BPD 0.73 77% Hadlock FL / HC 0.20 90% Hadlock FL / AC 0.21 32% Hadlock Other Structures FHR 146 bpm Anatomy The following structures appear normal: Head/Neck: Cranium. [...] Thorax RVOT view. LVOT view. 3-vessel view. 3-wmpffo-ppqpszp view. Bicaval view. Ductal arch view. Great vessels. Abdomen Genitals. Extremities / Right foot. Left foot. Skeleton Maternal Structures Uterus Visualized Cervix Visualized Approach - Transvaginal: Cervical length 3.21 cm Right Ovary Not visualized Left Ovary Not visualized Cul de Sac Visualized. No free fluid visualized Impression Single viable intrauterine consistent with 20w 1d with an DARWIN of 04/23/2025. Transvaginal cervical length measures 3.21 cm. Amniotic fluid MVP measures 5.2 cm. Recommendations Please see [facility] documentation from today. The [...] physician of this order is ENRIKE Alfaro Authorizing ProviderResult TypeResult StatusCorey Juan SIERRA OB US PROCEDURES Final Result * (ABNORMAL) Urinalysis with reflex microscopic (12/02/2024 11:40 PM EDT) ComponentValueRef RangeTest MethodAnalysis TimePerformed AtPathologist SignatureCOLOR,URINELight-AqupeaLncebl53/18/2025 12:00 AM [facility]trAPPEARANCE,MOGDVMoinmCxkth86/18/2025 12:00 AM [facility] CtrSPECIFICY GRAVITY,URINE1.0171.001 - 1.78594 12:00 AM [facility] CtrPH,URINE5.55.0 - 9.008 12:00 AM [facility] CtrLEUKOCYTE ESTERASE,URINENegativeNegative 12/03/2024 12:00 AM [facility] CtrNITRITE,URINENegative Fjqayfna74/18/2025 12:00 AM [facility] CtrPROTEIN,URINE NegativeNegative mg/dL12/03/2024 12:00 AM [facility] GLUCOSE,URINE (UA)NormalNormal mg/dL12/03/2024 12:00 AM [facility] CtrKETONES,RNFEKCnfxuterZrbwnliu89/18/2025 12:00 AM [facility] CtrUROBILINOGEN,URINENormalNormal mg/dL12/03/2024 12:00 AM [facility] CtrBILIRUBIN,JIFPDCwlgnyniOqcihzxr30/18/2025 12:00 AM [facility] CtrOCCULT BLOOD,URINE3+Negative 12/03/2024 12:00 AM [facility] CtrRBC,URINE1-20 - 4 [HPF] 12/03/2024 12:17 AM [facility] CtrWBC,URINE1-20 - 4 [HPF] 12/03/2024 12:17 AM [facility] CtrSQUAMOUS EPITHELIAL CELL,URINE1-20 - 2 [HPF]12/03/2024 12:17 AM [facility] BACTERIA,URINE1+None Seen [HPF]12/03/2024 12:17 AM [facility] CtrHYALINE CASTS,URINENone0 - 8 [LPF]12/03/2024 12:17 AM [facility] CtrMUCUS,URINE1+(AA)[LPF]12/03/2024 12:17 AM [facility] CtrSpecimen (Source)Anatomical Location / Laterality Collection Method / VolumeCollection TimeReceived VnuhWzxfg68/17/2025 11:40 PM EDT12/02/2024 11:49 PM EDT Narrative [facility] - 12/03/2024 12:17 AM EDT Comment c/o urinary symptoms or increased blood pressure Name Collection Type:: Voided Authorizing ProviderResult TypeResult StatusRichard A Visci DOLAB URINE ORDERABLESFinal ResultPerforming OrganizationAddressCity/State/ZIP CodePhone Number [facility] [address] [place] [address], [facility] [address] [place] [address] * RECURRENT VAGINITIS (HTRX) (11/20/2024 10:51 AM EDT)ComponentValueRef Range Test MethodAnalysis TimePerformed AtPathologist SignatureATOPOBIUM VAGINAE0 19.961 - 24.689 ppm11/21/2024 5:57 AM EDTHealthTrackRx at LabPortATOPOBIUM VAGINAENot Fclbakuj85.961 - 24.689 ppm11/21/2024 5:57 AM EDTHealthTrackRx at LabTerre Haute Regional HospitalBVAB 2,3 (BACTERIAL VAGINOSIS ASSOCIATED BACTERIA 2, 3); MOBILUNCUS SPP 019.961 - 24.689 ppm11/21/2024 5:57 AM EDTHealthTrackRx at [place] HospitalBVAB 2,3 (BACTERIAL VAGINOSIS ASSOCIATED BACTERIA 2, 3); MOBILUNCUS SPPNot Detected 19.961 - 24.689 ppm11/21/2024 5:57 AM EDTHealthTrackRx [facility] HospitalCANDIDA ALBICANS, PARAPSILOSIS, FESWPGRBNT004.000 - 30.347 ppm11/21/2024 5:57 AM EDT [facility] ALBIC[facility], PARAPSILOSIS, TROPICALISNot Detected 23.000 - 30.347 ppm11/21/2024 5:57 AM EDTHealthTrackRx at [facility]ANDIDA RFNOWHZS553.000 - 31.618 ppm11/21/2024 5:57 AM EDT[facility] GLORIA GLABRATANot Ftxrenae55.000 - 31.618 ppm11/21/2024 5:57 AM EDT [facility]AND[facility] LBWAQD966.000 - 30.873 ppm11/21/2024 5:57 AM EDTHealthTrackRx at [facility]CANDIDA KRUSEINot Bnqzikmc04.000 - 30.873 ppm 11/21/2024 5:57 AM EDTHealthTrackRx at LabPortCHLAMYDIA FUVXCYJIHDR355.000 - 31.586 ppm11/21/2024 5:57 AM EDTHealth[facility]Rx at [facility] HospitalCHLAMYDIA TRACHOMATIS Not Xftlebed94.000 - 31.586 ppm11/21/2024 5:57 AM EDT[facility] GARDNERELLA XAWHKVTWN637.961 - 24.689 ppm11/21/2024 5:57 AM EDTHealthTrackRx at [facility] HospitalGARDNERELLA VAGINALISNot Srmmhptn10.961 - 24.689 ppm11/21/2024 5:57 AM EDTHealthTrackRx at [facility] HospitalMEGASPHAERA (TYPES 1, 2)019.961 - 24.689 ppm 11/21/2024 5:57 AM EDTHealth[facility]Rx [facility] HospitalMEAZSPHONORHEALTH DEER [facility] MED[facility] CENTERRA (TYPES 1, 2)Not Dhhwzvpi12.961 - 24.689 ppm11/21/2024 5:57 AM EDT[facility] NEISSERIA IDRIDYSRITW676.000 - 32.587 ppm11/21/2024 5:57 AM EDTHealth[facility]Rx at [facility] HospitalNEISSERIA GONORRHOEAENot Xefypuzv40.000 - 32.587 ppm11/21/2024 5:57 AM EDTHealth[facility]Rx at [facility] HospitalTRICHOMONAS AGFPDOYIO383.000 - 31.995 ppm 11/21/2024 5:57 AM EDTHealthTrackRx at [facility] HospitalTRICHOMONAS VAGINALISNot Sjaxnrvz31.000 - 31.995 ppm11/21/2024 5:57 AM EDT[facility] MYCOPLASMA NZMNCHECTN195.961 - 24.689 ppm11/21/2024 5:57 AM EDTHealthTrackRx at [facility] HospitalMYCOPLASMA GENITALIUMNot Twxinbhq46.961 - 24.689 ppm11/21/2024 5:57 AM EDTHealthTrackRx at [facility] HospitalSpecimen (Source)Anatomical Location / LateralityCollection Method / VolumeCollection TimeReceived TimeTissue 11/20/2024 10:51 AM EDT11/21/2024 1:16 AM EDT Narrative Authorizing ProviderResult TypeResult StatusCorey Juan DOLAB BLOOD ORDERABLES Final ResultPerforming OrganizationAddressCity/State/ZIP CodePhone Number [facility] [address] [address] * AFP, SERUM, OPEN SPINA BIFIDA (11/20/2024 10:37 AM EDT)ComponentValueRef Range Test MethodAnalysis TimePerformed AtPathologist SignatureRESULTSReport.TBHTEST RESULTS:*Screen Negative*.TBHGEST. AGE ON COLLECTION DATE18.0. weeksTBH GESTAT. AGE BASED ONUltrasound.TBHComment: ?18.0 on 11/20/2024 Recalculations are not recommended when gestational dating by LMP and ultrasound are within 10 days. MATERNAL AGE AT EDD30.1. yrTBHRACEOther.NOIUSULYB868. lbsTBHINSULIN DEP DIABETES No.TBHMULTIPLE GESTATIONNo.TBHAFP VALUE27.6. ng/mLTBHAFP MOM0.87.TBHOSBR RISK 1 [id number].TBHINTERPRETATIONComment.TBHComment: Interpretation: Screen Negative This result is screen [...] Genetic Customer Services to discuss available options. ??The [employer] recommends amniocentesis be offered to women age 35 and older. COMMENT:Comment.TBHComment: Gisel Gandhi, Ph.D., [facility] Director References: Available Upon Request. Multiples Of Median Cutoffs ?For AFP Elevations [place] ?? 2.5 ? Black ?2.8 IDD ? 2.0 ? Twins ?4.5 ?Abbreviation Definitions IDD - Insulin Dep Diabetes OSBR - Open Spina Bifida Risk For further inquiries contact [employer] at [phone]. This test was developed and its performance characteristics determined by [employer]. It has not been cleared or approved by the Food and Drug Administration. Performed at: ??[facility] [address] [place], [place] ??[id number] Global Manager: Lorena Ellis [facility], Phone: ??[phone] Specimen (Source)Anatomical Location / LateralityCollection Method / Volume Collection TimeReceived Time11/20/2024 10:37 AM EDT11/20/2024 10:49 AM EDT Narrative [facility] - 11/22/2024 1:07 AM EDT N N ULTRASOUND [id number] 18 N 1 256 N N N N N White/ Authorizing ProviderResult TypeResult StatusCorey Juan DOLAB BLOOD ORDERABLES Final ResultPerforming OrganizationAddressCity/State/ZIP CodePhone Number [facility] from Last 3 Months Additional Health Concerns Active ProblemsNoted DateDiagnosed DateOB Blqxlvenj98/07/2025 Insurance Care Teams Team MemberRelationshipSpecialtyStart DateEnd Date Amanda Ford NP [address] [place] [address] PCP - GeneralFamily Immlbrnn10/2/23
--- OUTSIDE RECORDS SUMMARY | 2025-02-10 13:52 | XMS_ITS ---
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 Name Role Phone Unavailable Primary Care Physician Unavailab le Results * [UNITY] ANEUPLOIDY NIPT Performed by: [employer] Component Value Range Date Fraction 5.3% 10/17/2024 03:23 am UTCRh(D) NIPTRhD GDINZUGX59/02/2025 03:23 am UTCSex Chromosome AneuploidyNOT BFFSNSYK90/02/2025 03:23 am UTCMonosomy XLOW RISK <1 in , 03:23 am UTCTrisomy 13LOW RISK <1 in , 03:23 am UTCTrisomy 18LOW RISK <1 in , 03:23 am UTCTrisomy 21LOW RISK <1 in , 03:23 am UTCFetal UnkQVWDOI35/02/2025 03:23 am UTCPregnancy KtefngejtDFZCKGOMO09/02/2025 03:23 am UTCFor detailed report, see PDFSee PDF 10/17/2024 03:23 am UTC10/17/2024 03:23 am UTC Social History Observation Value Start Date End Date
--- OUTSIDE RECORDS SUMMARY | 2025-02-10 13:52 | XMS_ITS | CCD ---
Author Organization 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 Role Phone Mariam Appiah Primary Care Provider [phone] MACKENZIE BRITO Referring Unavailable MARIAM APPIAH Primary Care Unavailable RASHARD OLIVERA Referring Unavailable MARIAM APPIAH Primary Care Unavailable RASHARD OLIVERA Referring Unavailable MARIAM APPIAH Primary Care Unavailable RASHARD OLIVERA Admitting Unavailable RASHARD OLIVERA Attending Unavailable MARIAM APPIAH Primary Care Unavailable MARIAM APPIAH Primary Care Unavailable MARIAM APPIAH Primary Care Physician Amanda Ford Unavailable MD Mariam Appiah Primary Care Provider MELY Ford Attending Provider MELY Ford Primary Care Provider DO Jack Easton Emergency Provider MARYSOL Jett Emergency Provider [phone] MD Lashonda Farhad Admit Provider MD Farhad Gallego Attending Provider [phone] MELY Ford Attending Provider SHARRON Jefferson Attending Provider [phone] Petr Lay Unavailable Romeo Santana Unavailable MELY Ford Primary Care Provider DO Romeo Santana Attending Provider Rohrbacher SMOKING TOBACCO PACKER HAND, Amanda Primary Care Provider Unavailable Rohrbacher CONTRACT COORDINATOR, Amanda Primary Care Provider Romeo Santana DO Attending Provider Merylrbacher SMOKING TOBACCO PACKER HAND, Amanda A Primary Care Provider Unavailable Primary Care Provider Unavailabl e DAVID, MELODIE G Referring Unavailable Unavailable Primary Care Provider Unavailabl e NOLA ERNIQUEZ Attending Unavailable Rohrbacher SMOKING TOBACCO PACKER HAND, Amanda A Primary Care Provider DAVID, MELODIE G Referring Unavailable DAVID, MELODIE G Attending Unavailable DAVID, MELODIE G Referring Unavailable ATTARAN, IGNACIO Attending Unavailable DAVID, MELODIE G Attending Unavailable SELF Referring Unavailable DUDZIAK, DANIEL Referring Unavailable DAVID, MELODIE G Referring Unavailable SELF Referring Unavailable ATTARAN, IGNACIO Attending Unavailable DUDZIAK, DANIEL Referring Unavailable ATTARAN, IGNACIO Referring Unavailable DUDZIAK, DANIEL Referring Unavailable MIKEY TORRES Attending Unav ailable DUDZIAK, DANIEL Referring Unavailable SELF Referring Unavailable DAVID, MELODIE G Attending Unavailable SELF Referring Unavailable DAVID, MELODIE G Attending Unavailable Romeo Santana DO Attending Unavailable Rohrbacher, Amanda Primary Care Unavailable Romeo Santana DO Admitting Unavailable Rohrbacher, Amanda Primary Care Unavailable Alan, Narda T Admitting Unavailable Alan, Narda T Attending Unavailable Rohrbacher, Amanda Primary Care Unavailable David, Melodie G Admitting Unavailable David, Melodie G Attending Unavailable Rohrbacher, Amanda Primary Care Unavailable David, Melodie G Admitting Unavailable David, Melodie G Attending Unavailable Rohrbacher, Amanda Primary Care Unavailable David, Melodie G Admitting Unavailable Rohrbacher, Amanda Primary Care Unavailable David, Melodie G Attending Unavailable Rohrbacher, Amanda Primary Care Unavailable JUAN, LES R Admitting Unavailable JUAN, LES R Attending Unavailable Rohrbacher CONTRACT COORDINATOR, Amanda Primary Care Provider Kassidy Arriaza DO Emergency Provider No Pcp, No Pcp Primary Care Provider Unavailabl e Chris Dickerson DO Attending Provider [phone] Les Martinez DO Attending Provider [phone] Elizabeth Tom Attending Provider [phone] Eduardo Cruz DO Attending Provider [phone] JUAN, LES R Referring Unavailable NO PCP, NO PCP Primary Care Unavailable ENRIKE LINDQUIST Attending Unavailable JUAN, LES R Referring Unavailable NO PCP, NO PCP Primary Care Unavailable Amanda Ford Primary Care Unavailable Kassidy Arriaza Admitting Unavailable Kassidy Arriaza Attending Unavailable Chris Dickerson Admitting Unavailable Chris Dickerson Attending Unavailable Eduardo Cruz Admitting Unavailable Eduardo Cruz Attending Unavailable Amanda Ford Primary Care Unavailable No Pcp, No Pcp Primary Care Provider Unavailabl e DOTTIE, LAURENMAD F Attending Unavailable DOTTIE, AHMAD F Referring Unavailable JUAN, LES Attending Unavailable JUAN, LES Attending Unavailable JUAN, LES Referring Unavailable JUAN, LES Attending Unavailable JOJO DEVLIN Attending Unavailable LOWELL, MIMA Attending Unavailable LOWELL, MIMA Referring Unavailable JOJO DEVLIN Attending Unavailable NO PCP, NO PCP Primary Care Unavailable JUAN, LES R Referring Unavailable JUAN, LES R Referring Unavailable NO PCP, NO PCP Primary Care Unavailable Allergies Allergy ClassificationReported Allergen(s)Allergy TypeDate of OnsetReaction(s) Facility (20 sources)Non-steroidal anti-inflammatory agentDrug allergyUnkLakeland Regional Hospital [employer] Other (20 sources)Non-steroidal anti-inflammatory agent; Translations: [NSAIDs]Drug [id number] [facility] (1 source)ALLERGIES NOT ON FILE; Translations: [ALLERGIES NOT ON FILE]Propensity to adverse reactions (disorder)[facility] Repository (6 sources)NSAIDs; Translations: [NSAIDS (NON-STEROIDAL ANTI-INFLAMMATORY DRUG)] Propensity to adverse reactions to mkte00-17-7130[facility] (1 source)NSAIDsDrug allergy (disorder)87-44-5361[facility]houcDel[facility] Medications Current Medications MedicationDrug Class(es)DatesSig (Normalized)Sig (Original)acetaminophen 500 mg oral tablet (20 sources)Start: 16-59-0418hfdb 1 tablet by mouth every eight hours as needed acetaminophen (TYLENOL) 500 mg tablet Take 500 mg by mouth every 8 hours as needed for pain. 12/06/2023 ActiveStart: 60-95-2663hutr 1 tablet by mouth every six hours as needed for painStart: 11-28-2023 End: 23-26-0871whsldsmqqqpbk (Tylenol Extra Strength) Discontinued 1000 MG PO EVERY 8-10 HOURS as needed for pain November 28, 2023 12:00am January 17, 2024 12:03pmacetaminophen 500 mg / diphenhydrAMINE hydrochloride 25 mg oral tablet (4 sources)Histamine-1 Receptor AntagonistStart: 43-16-6716jixa 2 tablets by mouth once daily at bedtime for sleepTylenol Extra Strength PM oral tablet 2 tab(s), Oral, Once a day (at bedtime) for sleep, 60 tab(s),Refill(s) 2, [facility], 182, cm, 07/09/19 13:03:00 EDT, Height/Length Measured, 200.7, k g, 07/09/19 13:03:00 EDT, Weight Measured Start Date: 10/04/19 Status: Ordered acetaminophen 325 mg / oxyCODONE hydrochloride 5 mg oral tablet (2 sources)Opioid AgonistStart: 05-07-2020 End: 39-20-8679fucs 1 tablet by mouth every six hours as needed for pain, then take 1 tablet by mouth as needed for painoxyCODONE-acetaminophen (PERCOCET) 5- 325 MG per tablet Indications: Post-op pain Take 1 tablet by mouth every 6 hours as needed for Pain for up to 7 days. Intended supply: 3 days. Take lowest dose possible to manage pain 28 tablet 0 05/07/2020 05/14/2020 ActiveStart: 66-83-8953vunPNLTDL-acetaminophen (PERCOCET) 5-325 MG per tablet 1 tablet albuterol 0.833 mg/ml / ipratropium bromide 0.167 mg/ml inhalant solution (1 source)Anticholinergic, beta2-Adrenergic AgonistStart: 27-15-7323binqrvnftqm- albuterol (DUONEB) nebulizer solution 1 ampulebenztropine mesylate 1 mg oral tablet (4 sources)Anticholinergic, AntihistamineStart: 59-27-6386fljzvnqyezr 1 mg Tab Refills(s) 0 Start Date: 01/30/20 Status: Orderedcalcium chloride 0.0014 meq/ml / potassium chloride 0.004 meq/ml / sodium chloride 0.103 meq/ml / sodium lactate 0.028 meq/ml injectable solution (2 sources)Start: 05-06-2020 End: 75-84-3864jmnbwqru ringers infusiondocusate sodium 100 mg oral capsule (20 sources)Start: 04-16-2024 End: 97-05-4000tmtf 1 capsule by mouth twice daily as needed for constipation Docusate Sodium (Stool Softener) 100 mg capsule Active 0 .ROUTE .COMPLEX April 26, 2024 9:52am TAKE 1 CAPSULE BY MOUTH TWICE DAILY NEEDED FOR CONSTIPATION Complies with drug therapyStart: 04-16-2024 End: 88-25-8009cfoy 1 capsule by mouth twice daily as needed for constipation Docusate Sodium (Stool Softener) 100 mg capsule Discontinued 0 .ROUTE .COMPLEX April 16, 2024 8:58am April 26, 2024 8:57am TAKE 1 CAPSULE BY MOUTH TWICE DAILY NEEDED FOR CONSTIPATIONStart: 06-17-2022 End: 99-92-3218tjfjiqda sodium (Colace) 100 MG capsule 1 (one) time each day at the same time 06/17/2022 ActiveStart: 06-11-2022 End: 62-14-0341lcdm 1 capsule by mouth twice daily as needed for constipation Docusate Sodium (Colace) 100 mg capsule Discontinued 100 MG PO Twice daily as needed for Constipation 04 02December 06, 2023 12:00am December 07, 2023 6:44am take 1 capsule by mouth once dailyPhillips Stool Softener 100 MG 1 capsule Orally Once a day for 3 days Active0.6 ml enoxaparin sodium 100 mg/ml prefilled syringe (1 source)Low Molecular Weight HeparinStart: 76-24-5052mrglyvecxd (LOVENOX) 60 MG/0.6ML injection Inject 0.6 mLs into the skin 2 times daily 28 Syringe 0 0 05/07/2020 Active2 ml famotidine 10 mg/ml injection (1 source)Histamine-2 Receptor AntagonistStart: 31-71-4816yykffbitot (PEPCID) injection 20 mg1 ml heparin sodium, porcine 5000 unt/ml prefilled syringe (2 sources)Unfractionated Heparin, Anti-coagulantStart: 05-06-2020 End: 28-38-1058xcsadqq (porcine) injection 5,000 Units1 ml HYDROmorphone hydrochloride 1 mg/ml cartridge (3 sources)Opioid AgonistStart: 46-91-7373YWUOOwopusxfb (DILAUDID) injection 1 mgStart: 05-06-2020 End: 53-83-3894KPNGYkwbgtyav (DILAUDID) 1 MG/ML injectionStart: 05-06-2020 End: 76-11-4501NAAMPcshravfz (DILAUDID) injection 0.5 mghydrOXYzine hydrochloride 50 mg oral tablet (4 sources)AntihistamineStart: 07-13-1504nqed 1-2 tablets by mouth four times dailyhydrOXYzine hydrochloride 50 mg oral tablet See Instructions, 1-2 tab(s) Oral QID, # 60 tab(s), Refills(s) 2, Pharmacy: [id number] Start Date: 10/09/18 Status: OrderedlamoTRIgine 200 mg oral tablet (20 sources)Mood Stabilizer, Anti-epileptic AgentStart: 43-92-6939Qtprsqxfdzk Active MG TABLET April 10, 2022 12:00amStart: 53-37-5404vildrutznwh 200 mg Tab 300 mg = 1.5 tab(s), Oral, Daily, # 45 tab(s), Refills(s) 5, Pharmacy: [facility], 182, cm, 12/06/19 12:03:00 EDT, Height/Length Dosing, 200.7, kg, 11/28/19 9:08:00 EDT, Weight Dosing Start Date: 01/30/20 Status: OrderedStart: 10-04-2018 End: 33-58-0963dotg 1 tablet by mouth once daily at bedtimeLamotrigine 200 mg tablet Discontinued 200 MG PO Daily at bedtime October 08, 2019 12:00am August 01, 2021 2:19pmLaMICtal 200 MG tablet 1.5 tabs Activelevothyroxine sodium 0.05 mg oral tablet (20 sources)l-ThyroxineStart: 02-24-2024 End: 43-40-7856fxyo 1 tablet by mouth before mealtimelevothyroxine (Synthroid, Levoxyl) 50 MCG tablet Indications: Nontoxic goiter Take 1 tablet (50 mcg) by mouth in the morning. Take before meals. 90 tablet 3 08/22/2024 08/17/2025 ActiveStart: 10-13-2023 End: 80-67-1962wiod 1 capsule by mouth once daily in the morningLevothyroxine 50 mcg capsule Discontinued 50 MCG PO Every morning October 13, 2023 12:00am April 26, 2024 9:56amStart: 10-08-2019 End: 26-30-8356loia 1 tablet by mouth every other dayLevothyroxine 175 mcg Tablet Discontinued 175 MCG PO every other day October 08, 2019 12:00am July 172021 2:19pm 1 tablet on odd daysStart: 10-08-2019 End: 33-93-8853gayi 1.5 tablets by mouth every other dayLevothyroxine 175 mcg Tablet Discontinued 262 MCG PO every other day October 08, 2019 12:00am July 172021 2:19pm 1.5 tabs every other day on even daysStart: 10-08-2019 End: 22-65-1006ibgp 1.5 tablets by mouth every other dayLevothyroxine Discontinued 262 MCG PO every other day October 08, 2019 12:00am August 01, 2021 2:19pm 1.5 tabs every other day on even daysStart: 82-88-7586itop 1 tablet by mouth once dailylevothyroxine 175 mcg (0.175 mg) Tab 175 microgram = 1 tab(s), Oral, Daily, # 30 tab(s), Refills(s)0 Start Date: 09/03/18 Status: Ordered lidocaine 0.05 mg/mg medicated patch (20 sources)Antiarrhythmic, Amide Local AnestheticStart: 02-24-2024 End: 37-56-0889zawib 1 dose transdermal route once dailyLidocaine 5 % adhesive patch,medicated Active 0 .ROUTE .COMPLEX April 26, 2024 9:53am APPLY 1 PATCH TOPICALLY ONCE DAILY. REMOVE AFTER 12 HOURS Complies with drug therapy Start: 02-24-2024 End: 12-34-0069jozxn 1 dose topically once dailyLidocaine 5 % adhesive patch,medicated Discontinued 1 PATCH TOPICAL Daily February 24, 2024 1:00am February 24, 2024 9:54am leave on most painful area for up to 12 hrsStart: 10-24-2023 End: 11-85-8021zdzag 1 dose transdermal route once dailyLidocaine 5 % adhesive patch,medicated Discontinued 0 .ROUTE .COMPLEX October 24, 2023 8:47am January 17, 2024 12:04pm APPLY 1 PATCH TOPICALLY ONCE DAILY. REMOVE AFTER 12 HOURS Start: 06-03-2023 End: 54-49-5824bvifa 1 dose topically once daily as neededLidocaine 5 % adhesive patch,medicated Discontinued 1 PATCH TOPICAL Daily as needed June 03, 2023 1:00am October 24, 2023 8:48am REMOVE AFTER 12 HOURSStart: 75-01-9385Edrkxvwwz 5 % 1 patch remove after 12 hours Externally Once a day for 30 day(s) PRN Jan, ActiveLidocaine 5 % APPLY 1 PATCH TOPICALLY ONCE DAILY. REMOVE AFTER 12 HOURS. for 30 Activelithium carbonate 450 mg extended release oral tablet (8 sources)Start: 50-84-1878hkkn 1 tablet by mouth once daily in the morning, then take 2 tablets by mouth once daily in the eveninglithium 450 mg oral tablet, extended release See Instructions, 1 tab po qAM and 2 tabs qPM, # 90 tab (s), Refills(s) 2, Pharmacy: [facility], 182, cm, 12/06/19 12:03:00 EDT, Height/Length Dosing, 200.7, kg, 11/28/19 9:08:00 EDT, Weight Dosing Start Date: 03/17/20 Status: Orderedmagnesium oxide 400 mg oral tablet (5 sources)Start: 67-45-1581zzwj 1 tablet by mouth once in the morning, then take 1 tablet by mouth at bedtimemagnesium oxide (MAGOX) 400 mg tablet Indications: headache in second trimester Take 1 tablet (400 mg total) by mouth in the morning and 1 tablet (400 mg total) before bedtime. 120 tablet 1 12/05/2024 Active2 ml ondansetron 2 mg/ml injection (1 source)Serotonin-3 Receptor AntagonistStart: 26-82-7607lfuflervvkt (ZOFRAN) injection 4 mgpantoprazole 40 mg extended release oral tablet (4 sources)Proton Pump InhibitorStart: 89-81-0533axkz 1 tablet by mouth once dailypantoprazole 40 mg Oral EC Tab 40 mg = 1 tab(s), Oral, Daily, # 30 tab(s), Refills(s) 0 Start Date:09/03/18 Status: OrderedPNV Combo No.47-Iron-FA #1-DHA (PNV-DHA) 27 mg iron-1 mg -300 mg (5 sources)Start: 67-53-8965utwg 1 capsule by mouth once dailyPNV Combo No.47-Iron-FA #1-DHA (PNV-DHA) 27 mg iron-1 mg -300 mg Take 1 capsule by mouth once daily. 08/20/2024 Activepolysaccharide iron complex 391 mg oral capsule (20 sources)Start: 31-54-3775pnhn 1 capsule by mouth twice daily at bedtimeProFe 391.3 (180 Fe) MG capsule Indications: Other iron deficiency anemia TAKE 1 CAPSULE BY MOUTH TWICE DAILY IN THE MORNING AND BEFORE BEDTIME 60 capsule 3 11/06/2024 ActiveStart: 12-07-2023 End: 68-84-3619yxxr 1 capsule by mouth once dailyPolysaccharide Iron Complex (Pro Fe) 180 mg iron capsule Discontinued 180 MG PO Daily December 07, 2023 12:00am April 23, 2024 3:52pmtake 2 capsules by mouth twice daily Polysaccharide Iron Complex (PRO FE) 180 mg iron cap Take 2 capsules by mouth two times a day. Activeprenatal pc319-brkk-utuon acid ( 19) 29 mg iron- 1 mg tablet,chewable (7 sources) qw252-uyqy-fdanc acid ( 19) 29 mg iron- 1 mg tablet,chewable Chew 1 tablet and swallow in the morning. Activepromethazine hydrochloride 25 mg oral tablet (8 sources)PhenothiazineStart: 03-80-8480qanm 1 tablet by mouth every six hours as needed for nauseapromethazine (PHENERGAN) 25 MG tablet Take 1 tablet by mouth every 6 hours as needed for Nausea 30 tablet 0 05/07/2020 ActiveStart: 05-06-2020 End: 48-13-5893kbjv 1 tablet by mouth four times daily as needed for nausea promethazine (PHENERGAN) 25 MG tablet Take 1 tablet by mouth 4 times daily as needed for Nausea 20 tablet 0 05/07/2020 05/14/2020 ActiveStart: 05-06-2020 promethazine (PHENERGAN) injection 12.5 mgStart: 03-28-2019 End: 05-50-6522hjqp 1 tablet by mouth every four hours as needed for nausea and vomitingpromethazine (PHENERGAN) 25 MG tablet TAKE 1 TABLET BY MOUTH EVERY 4 HOURS NEEDED FOR NAUSEA ANDVOMITING 0 03/28/2019 05/07/2020 Discontinued (REORDER)QUEtiapine 25 mg oral tablet (20 sources)Atypical AntipsychoticStart: 74-35-5831ewqt 1 tablet by mouth at bedtimeQuetiapine 25 mg tablet Active 25 MG PO Bedtime April 10, 2022 1:00am Complies with drug therapyStart: 98-00-1481Qcgfqbmqir Active MG TABLET April 10, 2022 12:00amStart: 61-70-8851bfxz 2 tablets by mouth at bedtime quetiapine 50 mg oral tablet 100 mg = 2 tab(s), Oral, Bedtime, # 60 tab(s), Refills(s) 5, Pharmacy:[facility], 182, cm, 12/06/19 12:03:00 EDT, Height/Length Dosing, 200.7, kg, 11/28/19 9:08:00 EDT, Weight Dosing Start Date: 03/12/20 Status: Orderedtake 1 tablet by mouth once dailyQUEtiapine (SEROQUEL XR) 50 MG extended release tablet Take 50 mg by mouth nightly 0 Vmjsjb82 hr scopolamine 0.0139 mg/hr transdermal system (2 sources)AnticholinergicStart: 45-62-5683rsqqmnhecrc (TRANSDERM-SCOP) transdermal patch 1 patchsertraline 25 mg oral tablet (20 sources)Serotonin Reuptake InhibitorStart: 82-73-2972ejbe 1 tablet by mouth once dailysertraline (Zoloft) 25 MG tablet Take 25 mg by mouth 1 (one) time each day at the same time 09/25/2024 Active3 ml sodium chloride 9 mg/ml injection (2 sources)Start: 01-93-8422hnrcjo chloride flush 0.9 % injection 10 mLSprintec oral tablet (4 sources)Start: 02-81-4700Vdloipgm oral tablet 1 tab(s), Oral, Daily, 28 tab(s), Refill(s) 0 Start Date: 05/25/19 Status: Orderedsulfamethoxazole 400 mg / trimethoprim 80 mg oral tablet (7 sources)Dihydrofolate Reductase Inhibitor Antibacterial, Sulfonamide Antimicrobialtake 1 tablet by mouth every twenty-four hoursBactrim 400-80 MG 1 tablet Orally Once a day Activeziprasidone 80 mg oral capsule (20 sources)Atypical AntipsychoticStart: 61-95-3241pzqk 1 capsule by mouth twice daily at mealtimeziprasidone 80 mg Cap 80 mg = 1 cap(s), Oral, BID, with food, # 60 cap(s), Refills(s) 2, Pharmacy: [facility], 182, cm, 12/06/19 12:03:00 EDT, Height/Length Dosing, 200.7, kg, 11/28/19 9:08:00 EDT, Weight Dosing Start Date: 03/12/20 Status: OrderedStart: 10-08-2019 End: 05-51-6982avkn 1 capsule by mouth twice dailyZiprasidone Hcl (Geodon) 60 mg Capsule Discontinued 60 MG PO Twice daily October 08, 2019 12:00am August 01, 2021 2:19pmtake 2 capsules by mouth twice daily at mealtimeziprasidone (GEODON) 40 MG capsule Take 80 mg by mouth 2 times daily (with meals) 0 Active Completed/Discontinued Medications MedicationDrug Class(es)DatesSig (Normalized)Sig (Original)acetaminophen 325 mg / HYDROcodone bitartrate 5 mg oral tablet (20 sources)Opioid AgonistStart: 08-01-2021 End: 13-57-6705dpep 1 tablet by mouth every eight hours as needed for pain Hydrocodone-Acetaminophen 5-325 mg tablet Discontinued 1 TAB PO Q8H as needed for pain 7 2 August 01, 2021 April 10, 2022 7:18pmALPRAZolam 0.5 mg oral tablet (20 sources)BenzodiazepineStart: 06-17-2022 End: 66-29-2408zamb 1 tablet by mouth twice daily as needed for anxiety Alprazolam (Xanax) 0.5 mg tablet Discontinued 0.5 MG PO Twice daily as needed for Anxiety June 03, 2023 9:03am December 02, 2024 11:33pmStart: 06-10-2022 End: 15-72-8871sdgu 1 tablet by mouth once daily as needed for anxietyAlprazolam (Xanax) 0.5 mg Tablet Discontinued 0.5 MG PO Daily as needed for Anxiety June 10, 2022 1:00am June 03, 2023 9:04amStart: 92-90-3362glur 1-2 tablets by mouth every 30 days at bedtime as needed for anxietyalprazolam 0.5 mg Tab 1-2 tabs, Oral, Bedtime, PRN for anxiety, 30 day supply; DX: F41, anxiety, # 60 tab(s), Refills(s) 1, Pharmacy: [facility], 182, cm, 12/06/19 12:03:00 EDT, Height/Length Dosing, 200.7, kg, 11/28/19 9:08:00 EDT, Weight Dosing Start Date: 01/30/20 Status: OrderedStart: 10-08-2019 End: 27-10-9600oypz 1 tablet by mouth three times daily as needed for anxiety Alprazolam (Xanax) 0.5 mg Tablet Discontinued 0.5 MG PO Three times daily as needed for Anxiety October 08, 2019 12:00am April 10, 2022 7:18pmatomoxetine 40 mg oral capsule (11 sources)Norepinephrine Reuptake InhibitorStart: 01-25-2022 End: 72-70-1757Trudxlwfm 40 MG capsule 1 (one) time each day at the same time. 01/25/2022 10/22/2024 Uuwgzzikdzpi77 ml bupivacaine hydrochloride 5 mg/ml injection (1 source)Amide Local AnestheticStart: 05-06-2020 End: 58-79-6849eykvgpshamg (PF) (MARCAINE) 0.5 % injection 200 mgStart: 05-06-2020 End: 15-08-1627brjiljejtlh (PF) (MARCAINE) 0.5 % injection 200 mg12 hr buPROPion hydrochloride 150 mg extended release oral tablet (15 sources)AminoketoneStart: 04-26-2024 End: 24-33-4256ccdt 1 tablet by mouth once dailyBupropion Hcl (Wellbutrin Sr) 150 mg tablet sustained-release 12 hr Discontinued 150 MG PO Daily April 26, 2024 1:00am December 02, 2024 11:34pm End: 98-24-4125xtym 1 tablet by mouth once dailybuPROPion XL (Wellbutrin XL) 150 MG 24 hr tablet Take 150 mg by mouth Daily Do not crush, chew, or split. 10/22/2024 DiscontinuedbusPIRone hydrochloride 15 mg oral tablet (20 sources)Start: 04-10-2022 End: 34-76-3379voao 1 tablet by mouth three times daily as neededBuspirone 15 mg tablet Discontinued 15 MG PO Three times daily June 10, 2022 1:00am June 03, 2023 9:04am TAKE 1 TABLET BY MOUTH THREE TIMES DAILY NEEDED FOR 30 DAYSStart: 04-10-2022 End: 79-38-5829hzro 1 tablet by mouth twice dailyBuspirone 15 mg tablet Discontinued 15 MG PO Twice daily June 03, 2023 9:01am December 02, 2024 11:34pmStart: 04-10-2022 End: 39-04-7823Gisnlsdiw Discontinued MG TABLET April 10, 2022 1:00am June 10, 2022 6:28pmceFAZolin (ANCEF) 3 g in dextrose 5 % 100 mL IVPB (1 source)Start: 05-06-2020 End: 60-64-5792rmKTBlqah (ANCEF) 3 g in dextrose 5 % 100 mL IVPBcyclobenzaprine hydrochloride 10 mg oral tablet (20 sources)Muscle RelaxantStart: 06-10-2022 End: 48-07-7620xjlz 1 tablet by mouth at bedtimeCyclobenzaprine 10 mg tablet Discontinued 10 MG PO Bedtime June 10, 2022 1:00am November 28, 2023 3:55pmStart: 05-07-2020 End: 67-29-3500gini 1 tablet by mouth once daily as needed for muscle spasms cyclobenzaprine (FLEXERIL) 10 MG tablet Take 1 tablet by mouth nightly as needed for Muscle spasms 10 tablet 0 05/07/2020 05/17/2020 ActiveStart: 06-48-3245ovdq 1 tablet by mouth twice daily as needed for muscle spasmscyclobenzaprine (FLEXERIL) 10 MG tablet Take 1 tablet by mouth 2 times daily as needed for Muscle spasms 20 tablet 0 05/07/2020 ActiveStart: 10-08-2019 End: 36-13-0717jnoi 1 tablet by mouth three times daily as needed for muscle spasmsCyclobenzaprine 10 mg tablet Discontinued 10 MG PO Three times daily as needed for Muscle Spasm October 08, 2019 12:00am August 01, 2021 2:19pm End: 80-15-6626wbgl 5 mg by mouth three times daily as needed for muscle spasms cyclobenzaprine (Flexeril) 10 MG tablet Take 5 mg by mouth 3 (three) times a day as needed for muscle spasms 10/22/2024 Discontinueddiclofenac sodium 0.01 mg/mg topical gel (17 sources)Nonsteroidal Anti-inflammatory DrugStart: 11-28-2023 End: 44-19-9885ffkea 1 g topically four times daily as needed for painDiclofenac Sodium (Aleve (Diclofenac)) 1 % gel Discontinued 1 GM TOPICAL Four times daily as neededfor pain November 28, 2023 12:00am January 17, 2024 12:03pm apply to single elbow, wrist or hand; for hand includes palm/fingers/back of handStart: 20-27-2148Dttjhlfdqj Sodium 1 % 2 grams Externally Four times a day as needed for 30 day(s) Mar, Activedoxycycline hyclate 100 mg oral tablet (20 sources)Tetracycline-class DrugStart: 08-01-2021 End: 81-80-7308ezic 1 tablet by mouth twice dailyDoxycycline Hyclate 100 mg tablet Discontinued 100 MG PO Twice daily August 01, 2021 12:00am April 10, 2022 7:18pmergocalciferol 1.25 mg oral capsule (20 sources)Provitamin D2 CompoundStart: 10-08-2019 End: 82-31-9956Zzspkkeidvzzdh (Vitamin D2) (Vitamin D2) 1,250 mcg (50,000 unit) capsule Discontinued 57174 UNIT POevery week October 08, 2019 12:00am August 01, 2021 2:19pm Takes on Sundaystart: 88-17-4307Gtwczrw D2 2000 intl units oral capsule Refills(s) 0 Start Date: 05/25/19 Status: OrderedStart: 01-12-2019 End: 02-09-4411fonl 1 capsule by mouth every weekvitamin D (ERGOCALCIFEROL) 52669 units CAPS capsule Indications: Vitamin D deficiency Take 1 capsule by mouth once a week for 8 doses 8 capsule 0 01/12/2019 05/08/2020 Discontinued (Stop Taking at Discharge) End: 47-65-5397Xceedaghfgndbv (VITAMIN D2 PO) Take 50,000 capsules by mouth once a week 0 05/08/2020 Discontinued (Stop Taking at Discharge)Ergocalciferol (VITAMIN D2 PO) Take 50,000 capsules by mouth once a week 0 ActiveNorgestimate- Ethinyl Estradiol (20 sources)Progestin, EstrogenStart: 10-08-2019 End: 00-93-1512tskk 1 tablet by mouth once dailyNorgestimate-Ethinyl Estradiol (Sprintec (28)) 0.25-35 mg-mcg tablet Discontinued 1 TAB PO Daily October 08, 2019 12:00am August 01, 2021 2:19pmStart: 10-08-2019 End: 73-35-5902fckz 1 tablet by mouth once dailyNorgestimate-Ethinyl Estradiol (Sprintec (28)) 0.25-35 mg-mcg tablet Discontinued 1 TAB PO Daily October 07, 2019 11:00pm August 01, 2021 1:19pmStart: 25-71-0537daet 1 tablet by mouth once dailySPRINTEC 28 0.25-35 MG-MCG per tablet TAKE 1 TABLET BY MOUTH ONCE DAILY 3 01/13/2019 Active2 ml fentaNYL 0.05 mg/ml injection (1 source)Opioid AgonistStart: 05-06-2020 End: 98-68-9360ojchmFZR (SUBLIMAZE) injection 25 mcgferrous sulfate 325 mg oral tablet (20 sources)Start: 01-30-2020 End: 03-73-5471qcuk 1 tablet by mouth once dailyFerrous Sulfate 325 mg (65 mg iron) tablet Discontinued 325 MG PO Daily June 11, 2022 1:00am August 29, 2023 11:07amgabapentin 300 mg oral capsule (1 source)Anti-epileptic AgentStart: 05-05-2020 End: 75-64-8694wfwe 1 capsule by mouth once daily, then take 1 capsule by mouth, then take 1 capsule by mouthgabapentin (NEURONTIN) 300 MG capsule Take 1 capsule by mouth daily for 2 days. Take one pill the night before and one the morning of surgery 2 capsule 0 05/05/2020 05/08/2020 Discontinued (Stop Taking at Discharge)iohexol (OMNIPAQUE 240) injection 30 mL (1 source)Start: 05-07-2020 End: 74-31-2708wkgwgtn (OMNIPAQUE 240) injection 30 mL1 ml ketorolac tromethamine 15 mg/ml cartridge (1 source)Nonsteroidal Anti-inflammatory Drug, Cyclooxygenase InhibitorStart: 05-07-2020 End: 89-05-2545aijmbqqdk (TORADOL) injection 15 mgStart: 05-07-2020 End: 88-51-5465dtjncpfkp (TORADOL) injection 15 mglansoprazole 30 mg delayed release oral capsule (20 sources)Proton Pump InhibitorStart: 10-08-2019 End: 24-93-1184kwvx 1 capsule by mouth once daily in the morningLansoprazole 30 mg capsule,delayed release(DR/EC) Discontinued 30 MG PO Every morning November 28, 2023 12:00am February 10, 2024 11:58amletrozole 2.5 mg oral tablet (4 sources)Aromatase Inhibitor End: 11-77-5841prgo 1 tablet by mouth once dailyletrozole (Femara) 2.5 MG chemo tablet Take by mouth Daily. Take with or without food. 09/20/2024 Discontinued (Therapy completed)Lidocaine 5 % adhesive patch,medicated (3 sources)Start: 02-24-2024 End: 58-66-4607hxqkv 1 dose transdermal route once dailyLidocaine 5 % adhesive patch,medicated Discontinued 0 .ROUTE .COMPLEX February 24, 2024 8:53am J anuary 2024 8:57am APPLY 1 PATCH TOPICALLY ONCE DAILY. REMOVE AFTER 12 HOURSStart: 27-12-3279eetyg 1 dose transdermal route once dailyLidocaine 5 % adhesive patch,medicated Active 0 .ROUTE .COMPLEX February 24, 2024 8:53am APPLY 1 PATCH TOPICALLY ONCE DAILY. REMOVE AFTER 12 HOURSlurasidone hydrochloride 40 mg oral tablet (1 source)Atypical Antipsychotic End: 21-60-1246qeab 1 tablet by mouth once dailylurasidone (LATUDA) 40 MG TABS tablet Take by mouth daily 0 04/22/2020 Discontinued (LIST CLEANUP) medroxyPROGESTERone acetate 10 mg oral tablet (20 sources)ProgestinStart: 04-10-2022 End: 09-10-1748Vaexqarldwvnsljujws (Provera) 10 mg tablet Discontinued 10 MG PO Daily 01 25April 10, 2022 1:00am June 10, 2022 6:28pm begin day 16 of cyclemethylPREDNISolone acetate 80 mg/ml injectable suspension (20 sources)CorticosteroidStart: 52-58-8954FZXE-Medrol Sep, 80 mgStart: 75-86-7020fpxeijFPQGETJpvnvq 4 MG as directed Orally daily for 6 days August, ActiveStart: 31-01-9927ultoivQQBZVBAdgmsh 4 MG as directed Orally daily for 6 days Jan, Not-Taking2 ml midazolam 1 mg/ml injection (1 source)BenzodiazepineStart: 05-06-2020 End: 73-06-1765yhxbjixdy PF (VERSED) injection 1 mgmupirocin 20 mg/ml topical cream (20 sources)RNA Synthetase Inhibitor AntibacterialStart: 06-10-2022 End: 68-48-5225Gluoowbqy Calcium 2 % cream Discontinued 1 APPLIC TOPICAL Twice daily as needed for GENITAL BOILS June 10, 2022 1:00am December 02, 2024 11:34pmStart: 30-64-0396Kdfnsritt Calcium 2 % 1 application Externally Twice a day for 5 day(s) Jan, ActiveStart: 09-94-1118Vjetiddiu Calcium 2 % 1 application Externally Twice a day for 5 day(s) Jan, Activenaltrexone hydrochloride 50 mg oral tablet (20 sources)Opioid AntagonistStart: 10-25-2023 End: 57-59-5349uvozlrqyjl (Depade) 50 MG tablet every 12 (twelve) hours 10/25/2023 04/21/2024 ActiveStart: 06-03-2023 End: 07-88-6884nmiz 2 tablets by mouth twice dailynaltrexone 50 mg tablet Take 2 tablets by mouth two times a day. 06/03/2023 ActiveStart: 06-03-2023 End: 15-11-6222hxba 1 tablet by mouth twice dailyNaltrexone 50 mg tablet Discontinued 100 MG PO Twice daily April 23, 2024 3:51pm December 02, 2024 11:34pmStart: 38-28-3599szyj 50 mg by mouth once dailyNaltrexone Active 50 MG PO Daily June 03, 2023 1:00amtake 1 tablet by mouth every twenty-four hours Naltrexone HCl 50 MG 1 tablet Orally Once a day ActiveoxyCODONE hydrochloride 5 mg oral tablet (17 sources)Opioid AgonistStart: 12-09-2023 End: 60-15-5837afbu 1 tablet by mouth at mealtime for painOxycodone 5 mg tablet Discontinued 5 MG PO .q6-8hrs as needed for severe pain 03 22December 09, 2023 December 20, 2023 10:47am Take with food. Do not fill until 12/10/23.Start: 12-06-2023 End: 55-37-0143pcnl 1 tablet by mouth every six hours as needed for pain Oxycodone 5 mg tablet Discontinued 5 MG PO Q6H as needed for Pain 04 09December 06, 2023 December 07, 2023 7:13amrisperiDONE 4 mg oral tablet (1 source)Atypical AntipsychoticStart: 09-19-2018 End: 82-23-1306vhnw 1 tablet by mouth in the morningrisperiDONE (RISPERDAL) 4 MG tablet TAKE 1 2 (ONE HALF) TABLET BY MOUTH IN THE MORNING AND 1 TAB INTHE EVENING 2 09/19/2018 04/22/2020 Discontinued (LIST CLEANUP)traMADol hydrochloride 50 mg oral tablet (17 sources)Opioid AgonistStart: 12-07-2023 End: 35-72-2502crqs 1 tablet by mouth every eight hours as needed for pain Tramadol 50 mg tablet Discontinued 50 MG PO Every 8 hours as needed for pain 15 7 December 1443:44pm January 17, 2024 12:04pmtrihexyphenidyl hydrochloride 2 mg oral tablet (1 source)Start: 03-28-2019 End: 89-65-3790bvxu 1 tablet by mouth twice dailytrihexyphenidyl (ARTANE) 2 MG tablet TAKE 1 TABLET BY MOUTH TWICE DAILY FOR 30 DAYS 0 03/28/2019 04/22/2020 Discontinued (LIST CLEANUP) Problems Active Problems Problem ClassificationProblemDateDocumented DateEpisodic/ChronicAbdominal pain (20 sources)Flank pain; Translations: [Unspecified abdominal pain]07-03-2021 EpisodicAdministrative/social admission (2 sources)Treatment plan given; Translations: [Counseling, unspecified] 04-45-6508GmrisytfOzaweoeu reactions (5 sources)Acute urticaria; Translations: [Other urticaria]27-47-4914Dojwnnmx Anxiety disorders (20 sources)Mixed anxiety and depressive disorder; Translations: [Anxiety disorder, unspecified]31-64-8440KeoqlygImdvrspgu-deficit, conduct, and disruptive behavior disorders (20 sources)Attention deficit hyperactivity disorder, predominantly inattentive type; Translations: [Attention-deficit hyperactivity disorder, predominantly inattentive type]82-07-2639OpfifdeWdasqkbrx-deficit, conduct, and disruptive behavior disorders (1 source)Attention-deficit hyperactivity disorder, predominantly inattentive typeChronicAttention-deficit, conduct, and disruptive behavior disorders (20 sources)Attention deficit hyperactivity disorder; Translations: [Attention- deficit hyperactivity disorder, predominantly inattentive type]ChronicBiliary tract disease (4 sources)Jpismidrj16-32-7026MzayrfcnFyuvzmjenulbg and procreative management (14 sources)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 partner; Translations: [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]Onset: 345451-38-8476KnpnzfrwPqmnrlgnqg and other anemia (19 sources)Anemia; Translations: [Anemia, unspecified]23-10-7605Nrqkmtij Deficiency and other anemia (20 sources)Iron deficiency anemia; Translations: [Iron deficiency anemia, unspecified]60-86-3667JyueondyBibznapeql and other anemia (4 sources)Anemia, unspecified; Translations: [Anemia, unspecified]06-10-2022 EpisodicDeficiency and other anemia (4 sources)Iron deficiency anemia, unspecified; Translations: [Iron deficiency anemia, unspecified]69-01-3695NxtmemixCtdlrzcqoy and other anemia (2 sources)Other iron deficiency anemiasEpisodicDisorders usually diagnosed in infancy, childhood, or adolescence (20 sources)Non-organic primary nocturnal enuresis; Translations: [Enuresis not due to a substance or known physiological condition]ChronicEsophageal disorders (20 sources)Gastroesophageal reflux disease without esophagitis; Translations: [Gastro-esophageal reflux disease without esophagitis]Onset: 07-16-2021 Resolved: 01-85-3435VicakqaGhwbhd infertility (20 sources)Anovulation; Translations: [Female infertility associated with anovulation]Onset: 375149-21-4051YuihwziPtsjc of unknown origin (16 sources)Fever; Translations: [Fever, unspecified]78-95-7022Tfhvikrv Genitourinary symptoms and ill-defined conditions (2 sources)Painful micturition, unspecified; Translations: [Other microscopic hematuria]EpisodicHeadache; including migraine (1 source)Headache; including migraine; Translations: [Headache, unspecified] Onset: 95-13-7406Iygodlgjqn during ; abruptio placenta; placenta previa (4 sources)Bleeding from female genital tract during ; Translations: [Antepartum hemorrhage, unspecified, unspecified trimester]Onset: 10-18-2024 46-32-0157QzgboyykSgrrpkjxkokfj and screening for infectious disease (8 sources)Patient encounter status; Translations: [Encounter for screening for infectious and parasitic diseases, unspecified]Onset: EpisodicMenstrual disorders (20 sources)Menorrhagia; Translations: [Excessive and frequent menstruation with regular cycle]ChronicMood disorders (20 sources)Bipolar disorder; Translations: [Bipolar affective disorder, currently depressed, mild]Onset: 815030-17-0422WrvwzinZdcmdt and vomiting (16 sources)Vomiting; Translations: [Vomiting, unspecified]92-46-2941Ynytdlid Nutritional deficiencies (20 sources)Vitamin D deficiency; Translations: [Vitamin D deficiency, unspecified]Onset: 01-12-2019 Resolved: 387150-80-2674VlgukvcOqaampngezy deficiencies (4 sources)Iron deficiency; Translations: [Vitamin A deficiency, unspecified] Onset: 07-16-2021 Resolved: 83-56-2013TfxllegbBekmtvooyjthlz (20 sources)Arthritis of shoulder region joint; Translations: [Primary osteoarthritis, unspecified shoulder]ChronicOther complications of (5 sources)Maternal obesity complicating , childbirth and the puerperium, antepartum; Translations: [Obesity complicating , second trimester]79-31-1176NiigmhkGamzt complications of (1 source)Obesity complicating , second trimester; Translations: [Obesity complicating , second trimester]Onset: 76-83-7410PrtqevbUehbn complications of (4 sources)Supervision of resulting from assisted reproductive technology, first trimester; Translations: [ resulting from assisted reproductive technology]Onset: 831469-54-0569JjcwgpbwQveml complications of (2 sources)Conceived by in vitro fertilization; Translations: [Supervision of resulting from assisted reproductive technology, first trimester] 23-86-1100QobolhylAyany complications of (12 sources)Hypothyroidism in ; Translations: [Endocrine, nutritional and metabolic diseases complicating , second trimester]Onset: 578954-51-5300AdrjgdkzBlqgg complications of (9 sources)Bipolar disorder; Translations: [Other mental disorders complicating , second trimester]Onset: 352902-27-0612AwenkfebNwkbs complications of (2 sources)Supervision of resulting from assisted reproductive technology, unspecified trimester; Translations: [ resulting from assisted reproductive technology]Onset: 978315-81-0481VpyujyjaLchfw complications of (8 sources)Headache; Translations: [Other specified related conditions, second trimester]Onset: 205826-95-6157DnanzzdqLnfwi complications of (1 source)Other specified related conditions, second trimester; Translations: [Other specified related conditions, second trimester] Onset: 26-14-3299ErcbgpdaYmlia complications of (1 source)Bariatric surgery status complicating , unspecified trimester; 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 complicating , unspecified trimester]Onset: 38-38-7032RxidsgwbGtgxj complications of (1 source)Endocrine, nutritional and metabolic diseases complicating , second trimester; Translations: [Endocrine, nutritional and metabolic diseases complicating , second trimester]Onset: 53-39-0248SegkiygpHcxbe complications of (1 source)Other mental disorders complicating , second trimester; Translations: [Other mental disorders complicating , second trimester] Onset: 88-07-7115DdinxdjiYeqtm connective tissue disease (4 sources)Plantar fqmixkwxj99-33-8051DsvgbmraWyouc connective tissue disease (1 source)Lateral epicondylitis, right elbowEpisodicOther connective tissue disease (2 sources)Bursitis of right shoulderEpisodicOther connective tissue disease (20 sources)Disorder of ligament, unspecified site; Translations: [Laxity of ligament]EpisodicOther connective tissue disease (14 sources)Laxity of ligament; Translations: [Disorder of ligament, unspecified site]97-66-0541DwmfzczrJefoxpt on above:right shoulderOther connective tissue disease (4 sources)Bilateral plantar fasciitis; Translations: [Plantar fasciitis, bilateral]Onset: Other female genital disorders (20 sources)Abnormal uterine bleeding; Translations: [Other specified abnormal uterine and vaginal bleeding]68-08-3954OebvimbUsyyd gastrointestinal disorders (15 sources)Constipation; Translations: [Constipation, unspecified]06-08-2023 EpisodicOther gastrointestinal disorders (1 source)Constipation, unspecified; Translations: [Constipation, unspecified] 25-45-8342EywfizycGttvb gastrointestinal disorders (11 sources)History of bypass of stomach; 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]Onset: 969042-17-2846BdxfkmxgMmgvg hematologic conditions (4 sources)H/O: anemia - iron deficient; Translations: [Personal history of diseases of the blood and blood-forming organs and certain disorders involving the immune mechanism]02-94-7626VedxagleMwojt inflammatory condition of skin (1 source)Erythema intertrigoEpisodicOther nervous system disorders (20 sources)Chronic pain; Translations: [Other chronic pain]91-46-5839Mcatmsx Other nervous system disorders (2 sources)Other chronic pain; Translations: [Other chronic pain]ChronicOther nervous system disorders (12 sources)Carpal tunnel syndrome of right wrist; Translations: [Carpal tunnel syndrome, right upper limb]17-49-4673ZrlofesOjybe nervous system disorders (20 sources)Carpal tunnel syndrome, right upper limb; Translations: [Carpal tunnel syndrome]82-20-3085XqdyxfdLsprf nervous system disorders (1 source)Postoperative pain ; Translations: [Post-op pain]EpisodicOther nervous system disorders (14 sources)Numbness of hand; Translations: [Anesthesia of skin]10-13-2023 EpisodicOther nervous system disorders (13 sources)Anesthesia of skin; Translations: [Disturbance of skin sensation] 35-24-5892HnzjoydrMplqm non-traumatic joint disorders (16 sources)Derangement of right shoulder joint; Translations: [Other specific joint derangements of right shoulder, not elsewhere classified]ChronicOther non- traumatic joint disorders (1 source)Other specific joint derangements of right shoulder, not elsewhere classifiedChronicOther non-traumatic joint disorders (3 sources)Pain in right shoulderEpisodicOther non-traumatic joint disorders (20 sources)Other instability, unspecified shoulder; Translations: [Multidirectional instability of glenohumeral joint]EpisodicOther non-traumatic joint disorders (20 sources)Other instability, right shoulder; Translations: [Other joint derangement, not elsewhere classified, shoulder region]EpisodicOther non- traumatic joint disorders (14 sources)Instability of right shoulder joint; Translations: [Other instability, right shoulder]52-15-5727RcyfinbxSlvbj nutritional; endocrine; and metabolic disorders (8 sources)Body mass index 40+ - severely obese; Translations: [Morbid obesity with BMI of 50.0-59.9, adult]Onset: 12-05-2018 Resolved: 287564-94-0741KhjxsazEhkaf nutritional; endocrine; and metabolic disorders (4 sources)Morbid nfwahvz50-45-9867KdvecbdUalov and delivery including normal (14 sources)Early stage of ; Translations: [Encounter for supervision of normal , unspecified, unspecified trimester]Onset: 09-03-2024 78-44-6941JzyijhfkUlfgo screening for suspected conditions (not mental disorders or infectious disease) (5 sources)Thyroid function tests abnormal; Translations: [Abnormal results of thyroid function studies]Onset: 811992-10-1361LxotqnqdIxynm skin disorders (1 source)Follicular disorder, unspecifiedEpisodicResidual codes; unclassified (20 sources)Obstructive sleep apnea syndrome; Translations: [Obstructive sleep apnea (adult) (pediatric)]46-76-6259NsxxzuvPfizydp on above:patient denies. sleep study 2010Residual codes; unclassified (18 sources)Other specified postprocedural states; Translations: [Other postprocedural status]Onset: 07-16-2021 Resolved: 58-55-5802WfsicbbqYgoqdmjo codes; unclassified (15 sources)Chill; Translations: [Chills (without fever)]35-65-8038Hhrxcukn Residual codes; unclassified (19 sources)History of sleeve gastrectomy; Translations: [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]]29-81-1566VvzjyuapPrltckb on above:Aprilesidual codes; unclassified (1 source)Chills (without fever); Translations: [Chills (without fever)] 44-00-0716SxtqphgxQijikgxk codes; unclassified (1 source)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]; Translations: [Personal history of surgery to other organs]33-66-5108NjhcywsuLjrylphm codes; unclassified (9 sources)History of arthroscopic procedure on shoulder; Translations: [Other specified postprocedural states]93-72-9741UakgazsbWhbrikas codes; unclassified (1 source)Gestation period, 9 weeks; Translations: [9 weeks gestation of ]03-53-9867DzjhydjpKixehkzr codes; unclassified (2 sources)Gestation period, 13 weeks; Translations: [13 weeks gestation of ]44-75-8863PtfjbpuzVuahreuj codes; unclassified (2 sources)Gestation period, 18 weeks; Translations: [18 weeks gestation of ]90-86-2028FoirklkkEylguhfh codes; unclassified (1 source)Gestation period, 20 weeks; Translations: [20 weeks gestation of ]72-71-4097NfwonagoTcblxpdl codes; unclassified (2 sources)Gestation period, 22 weeks; Translations: [22 weeks gestation of ]37-43-0853YiztiaocEidgujkz codes; unclassified (2 sources)Gestation period, 26 weeks; Translations: [26 weeks gestation of ]02-63-9129VozihlaqVmxgmcsv codes; unclassified (2 sources)Gestation period, 29 weeks; Translations: [29 weeks gestation of ]84-64-0462JdapwtxgDytm and subcutaneous tissue infections (20 sources)Abscess; Translations: [Cutaneous abscess, unspecified]08-01-2021 EpisodicSprains and strains (20 sources)Strain of unspecified muscle, fascia and tendon at shoulder and upper arm level, right arm, initialencounter; Translations: [Strain of other muscles, fascia and tendons at shoulder and upper arm level, right arm, initial encounter]EpisodicSubstance-related disorders (4 sources)Marijuana user; Translations: [Marijuana use]Onset: 12-05-2018 47-41-7853Akcfvmr disorders (20 sources)Hypothyroidism; Translations: [Acquired hypothyroidism]Onset: 12-05-2018 Resolved: 887966-04-3499FpbwsbtMxdxuux disorders (6 sources)Disorder of thyroid gland; Translations: [Disorder of thyroid, unspecified]45-74-0055LltymxztHdnckqhiuuwv (2 sources)History of sleeve gastrectomy; Translations: [Status post laparoscopic sleeve gastrectomy]Onset: 351772-48-2320Ymhorpvtuaqa (5 sources)Patient encounter status; Translations: [Pre-op testing]09-03-2018 Unclassified (1 source) 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)65-84-1067Ayvlfgsnxbuh (20 sources)OB RemindersOnset: 446446-97-4796Eytmyeybuhtw (2 sources)keep next scheduled appointmentUnclassified (1 source)IUI pregnancyOnset: 68-20-5160Wqwkbopanafn (1 source)Pee's ThyroiditisOnset: 12-05-2024 Past or Other Problems Problem ClassificationProblemDateDocumented DateEpisodic/ChronicScreening and history of mental health and substance abuse codes (1 source)Personal history of nicotine dependenceOnset: 07-16-2021 Resolved: 66-27-8581PxcacwgvZuigeurbxcwi (3 sources)History of bypass of isdatbi78-73-2882Zkhpqakfegau (1 source)Encounter for supervision of resulting from assisted reproductive technology, snjehylpxn73-45-8174PRGUZQP: Highlighted row has been ruled out!Unclassified (1 source)No known active -61-5762 Results Test NameValueInterpretationReference RangeFacilityUrinalysis macro (dipstick) panel (U)on 82-97-7671Jcgokzrvy, UANegativeNegative - 4(70) +++ mg/dLNOMS HealthcareBlood, UANegativeNegative - 50 Yehuda/mcLNOMS HealthcareClarity, UAClear NOMS HealthcareColor, UAYellowNOMS HealthcareGlucose, UANegativeNegative - 2000(110) ++++ mg/dLNOMS HealthcareInterpretation and review of laboratory resultsAbnormalNOMS HealthcareKetones, UAPositiveNegative - 160(16) ++++ mg/dL [facility] HealthcareLeukocytes, UATraceNegative - 500+++ Kourtney/mcLNODC Healthcare Nitrite, UANegativeNegative - PositiveNOMS HealthcarepH, UA6.55 - 9NOMS HealthcareProtein, UANegativeNegative - 2000(20) ++++ mg/dLNOMS HealthcareSpec Grav, UA1.0101 - 1.03NOMS HealthcareUrobilinogen, UA2.00.2 - 12 mg/dLNOMS HealthcareNOMS HealthcareUS OB FOLLOW UP TRANSABDOMINAL APPROACHon 12-33-9632ZG OB FOLLOW UP TRANSABDOMINAL APPROACHFINDINGS: Comparison December 04, 2024. A single, live intrauterine is present with normal cardiac rate of 150 beats per minute. Normal activity and amniotic fluid volume. Amniotic fluid index is 14 cm. Morphology is grossly normal. The current sonographic age is 29 weeks and 5 days, based on the following measurements: BPD 7.5 cm (30 weeks, 1 day) Head Circumference 27.7 cm (30 weeks, 2 days) Abdominal Circumference 25.5 cm (29 weeks, 5 days) Femur Length 5.4 cm (28 weeks, 4 days) Presentation Cephalic Weight (g) by Percentile 84.0 % * (prior 58%) These measurements result in an estimated date of delivery of April 12, 2025. The current estimated weight is 1389 grams (3 pounds, 1 ounce). IMPRESSION: Single, live intrauterine , current sonographic age of 29 weeks and 5 days, with an estimated date of delivery of April 12, 2025 (prior DARWIN April 21, 2025). * Estimated Weight (g) by Percentile is based upon an accurate estimated age based on last menstrual period. TRANSCRIBED BY: ELECTRONICALLY SIGNED BY: Anaid Solis AvailableComment on above:Order Comment: US OB SCAN FOR GROWTH Estimated Date of Delivery: 04/23/25 Gestational Age as of 01/16/2025: 58t1eAozyimjaqm macro (dipstick) panel (U)on 04-25-1220Ebkmtzhtp, UANegativeNegative - 4(70) +++ mg/dLNOMS HealthcareBlood, UANegativeNegative - 50 Yehuda/mcLNOMS HealthcareClarity, UAClearNOMS Healthcare Color, UAYellowNOMS HealthcareGlucose, UANegativeNegative - 2000(110) ++++ mg/dL [facility] HealthcareInterpretation and review of laboratory resultsNormalNODC HealthcareKetones, UANegativeNegative - 160(16) ++++ mg/dLNOMS Healthcare Leukocytes, UANegativeNegative - 500+++ Kourtney/mcLNODC HealthcareNitrite, UA NegativeNegative - PositiveNOMS HealthcarepH, UA75 - 9NOMS HealthcareProtein, UA NegativeNegative - 2000(20) ++++ mg/dLNOMS HealthcareSpec Grav, UA1.011 - 1.03 NOMS HealthcareUrobilinogen, UA2.00.2 - 12 mg/dLNOMS HealthcareNOMS Healthcare ALL THYROID STIM HORMONEon 40-79-8910NYH Qn2.449 m[IU]/LNOMS HealthcareCLINISYNC NOMS HealthcareALL CBC WITH AUTO DIFFon 33-83-2763GBHBXXISU ABSOLUTE NVPF6ORNN HealthcareBasophils/100 WBC (Bld)0.3 %0.2 - 2.0 %[facility] HealthcareEosinophils/100 WBC (Bld)1.2 %0.9 - 7.0 %[facility] HospitalErythrocyte distribution width (RBC) [Ratio]13.2 %11.0 - 15.0 %[facility] HealthcareHematocrit (Bld) [Volume fraction]35.6 %Low36.0 - 48.0 %[facility] HospitalHemoglobin (Bld) [Mass/Vol]12 g/dL12.0 - 16.0 g/dLJefferson Memorial HospitalIMMATURE GRANULOCYTES ABS AUTO0.1HighNOParkland Health CenterImmature granulocytes/100 WBC (Bld)0.8 %High0.0 - 0.5 %[facility] HealthcareInterpretation and review of laboratory resultsAbnormalJefferson Memorial HospitalLYMPHOCYTES ABSOLUTE AUTO2.3 NOMSsm Health CareLymphocytes/100 WBC (Bld)19.7 %Low20.5 - 60.0 %[facility] HospitalH (RBC) [Entitic mass]29.6 pg26.7 - 34.0 pgJefferson Memorial HospitalMCHC (RBC) [Mass/Vol] 33.7 g/dL29.9 - 35.2 g/dLJefferson Memorial HospitalMCV (RBC) [Entitic vol]87.7 fL81.0 - 99.0 fLJefferson Memorial HospitalMONOCYTES ABSOLUTE AUTO0.7NOParkland Health CenterMonocytes/100 WBC (Bld)6.2 %1.7 - 12.0 %[facility] HospitalNEUTROPHILS ABSOLUTE AUTO8.5HighJefferson Memorial HospitalNeutrophils/100 WBC (Bld)71.8 %43.0 - 75.0 %[facility] HospitalPlatelet mean volume (Bld) [Entitic vol]8.7 fLLow9.5 - 13.5 fLJefferson Memorial HospitalTBH EO #0.1 [facility] HospitalTB [id number] Medical Center RBC4.06LowNOCass Medical Center WBC11.8 HighJefferson Memorial HospitalCLINISYNCNCarondelet HealthGLUCOSE 1 HOURon 08-31-1420Uxgccmj [Mass/Vol]118 mg/dLNINF - 130 mg/dLCenterpoint Medical CenterINISYNPiedmont Medical Center Urinalysis macro (dipstick) panel (U)on 88-47-9771Tbbqlpypz, UANegativeNegative - 4(70) +++ mg/dLNOMS HealthcareBlood, UANegativeNegative - 50 Yehuda/mcLNOMS HealthcareClarity, UAClearNOMS HealthcareColor, UAYellowNOMS HealthcareGlucose, UANegativeNegative - 2000(110) ++++ mg/dLNODC HealthcareInterpretation and review of laboratory resultsNormalNOMS HealthcareKetones, UANegativeNegative - 160(16) ++++ mg/dLNODC HealthcareLeukocytes, UANegativeNegative - 500+++ Kourtney/mcL NOMS HealthcareNitrite, UANegativeNegative - PositiveNOMS HealthcarepH, UA75 - 9 NOMS HealthcareProtein, UANegativeNegative - 2000(20) ++++ mg/dLNODC Healthcare Spec Grav, UA1.011 - 1.03NODC HealthcareUrobilinogen, UA1.00.2 - 12 mg/dLNODC HealthcareNODC HealthcareNo Panel Informationon 81-50-6087YLTGNNJHUNXSD HealthcareTBH UA (CLEAN/CATCH) CERAMICS TECHNICIAN/MICRO IF IND.on 86-12-6931NLGBPLDIJ URINE NegativeNEGATIVENOMS HealthcareBLOOD URINESMALLAbnormalNEGATIVENODC Healthcare Clarity (U)CLEARCLEARNOMS HealthcareColor (U)LT. YELLOWYELLOWNODC Healthcare GLUCOSE URINE UANegativeNEGATIVE mg/dLNODC HealthcareInterpretation and review of laboratory resultsAbnormalNOMS HealthcareKetones Ql (U)NegativeNEGATIVE mg/dL NOM HealthcareLeukocyte esterase Test strip Ql (U)NegativeNEGATIVENOMS HealthcareNITRITE URINENegativeNEGATIVENOMS HealthcarepH (U)5.5 [pH]5.0 - 9.0 NOMS HealthcarePROTEIN URINENegativeNEG/TRACE mg/dLNODC HealthcareSPECIFIC GRAVITY URINE1.0151.005 - 1.025NODC HealthcareURINE MICROSCOPIC INDICATEDYESNOMS HealthcareUROBILINOGEN URINE0.2 EU/dL0.2 - 1.0 EU/dLNOParkland Health CenterTB URINE MICROSCOPIC ONLYon 55-49-3375NTLSNWKX URINENONE SEENNONE SEEN #/HPFNOMS HealthcareCAST SEEN?NONE SEENNONE SEEN #/LPFNOMS HealthcareCRYSTALS SEEN?None SeenNone Seen #/HPFNODC HealthcareMUCUS URINENONE SEENNONE SEENJefferson Memorial Hospital SQUAMOUS EPITHELIAL CELL URINERARENONE/RARE #/LPFNOParkland Health CenterTBH RBC0-2NOMS [facility] HospitalTBH WBCNONE SEENNONE SEEN #/HPFNOParkland Health CenterURINE CULTURE INDICATED NONOMS HealthcareUS OB 14+ WEEKS ANATOMY SCANon 41-82-6172IU OB 14+ WEEKS ANATOMY SCANEXAM: US OB 14+ WEEKS ANATOMY SCAN HISTORY: anatomy, IVF. COMPARISON: Ob ultrasound 09/20/2024. TECHNIQUE: Two-dimensional transabdominal grayscale ultrasound imaging of the pelvis was performed.Limited exam due to patient body habitus. FINDINGS: [...] II, MD, PHD at 06-Dec-2024 08:04:50 AM [facility] TeleradiologyNormalNot AvailableComment on above:Order Comment: US OB ANATOMY SINGLE W US OB CERVICAL LENGTH Estimated Date of Delivery: 04/23/25 Gestational Age as of 11/20/2024: 55o1gUyhpdrmlmn complete panel (U)on 12-03-2024 Comment c/o urinary symptoms or increased blood pressure Name Collection Type:: VoidedFIRELANDSNOMS HealthcareAppearance of Urineon 22-51-3617Ozwwdrsjhc (U)ClearNormalClearNOMS HealthcareComment on above:Order Comment: Comment c/o urinary symptoms or increased blood pressure Name Collection Type:: VoidedPerformed By: #### ADDONUAPLUS #### [address] [address] USABacteria [Presence] in Urine by AutomatedOrdered By: Eduardo Cruz on 32-75-6857Ivkhooqa Auto Ql (U)1+ [HPF]HighNone SeenDelaware County HospitalBilirubin Test strip Ql (U)Ordered By: Eduardo Cruz on 30-69-3181Mecvezkgs Ql (U)NegativeNegativeDelaware County HospitalColor of Urine by Autoon 20-20-1364Lzorm (U)Light-YellowNormalYellowNOMS Healthcare Comment on above:Order Comment: Comment c/o urinary symptoms or increased blood pressure Name Collection Type:: VoidedPerformed By: #### ADDONUAPLUS #### [facility] [address] [place] [address] USADipstick and Microscopicon 09-76-2283Noxpsrpx,Urine1+ [HPF]NormalNone SeenHca Florida Ovied[facility] Center Physician GroupComment on above:Order Comment: Comment c/o urinary symptoms or increased blood pressure Name Collection Type:: VoidedPerformed By: #### ADDONUAPLUS #### [facility] [address] [place] [address] USABILIRUBIN,URINENegativeNormalNegativeNOMS Healthcare Comment on above:Order Comment: Comment c/o urinary symptoms or increased blood pressure Name Collection Type:: VoidedPerformed By: #### ADDONUAPLUS #### [place] [address] USAGlucose Ql (U)NormalNormalNormalNOMS HealthcareComment on above:Order Comment: Comment c/o urinary symptoms or increased blood pressure Name Collection Type:: VoidedPerformed By: #### ADDONUAPLUS #### [place] [address] USAHyaline Casts,UrineNoneNormal0-8The [facility] Access Hospital Physician GroupComment on above:Order Comment: Comment c/o urinary symptoms or increased blood pressure Name Collection Type:: VoidedPerformed By: #### ADDONUAPLUS #### [place] [address] USAMucus,Urine1+ [LPF]Critically abnormalThe Critical Access Hospital Physician GroupComment on above:Order Comment: Comment c/o urinary symptoms or increased blood pressure Name Collection Type:: VoidedResult Comment: PERFORMED BY: [place] [address] PATHOLOGIST DEVELOPMENTAL BEHAVIORAL PHYSICIAN DAMIÁN DOSHI M.D.Performed By: #### ADDONUAPLUS #### [place] [address] USANITRITE,URINENegativeNormalNegativeNOMS HealthcareComment on above:Order Comment: Comment c/o urinary symptoms or increased blood pressure Name Collection Type:: VoidedPerformed By: #### ADDONUAPLUS #### [place] [id number] USAOCCULT BLOOD,URINE3+NormalNegativeNOMS HealthcareComment on above:Order Comment: Comment c/o urinary symptoms or increased blood pressure Name Collection Type:: VoidedResult Comment: PERFORMED BY: [place] [address] PATHOLOGIST DEVELOPMENTAL BEHAVIORAL PHYSICIAN DAMIÁN DOSHI M.D.Performed By: #### ADDONUAPLUS #### [address] [address] USAPROTEIN,URINENegativeNormalNegativeNOMS HealthcareComment on above:Order Comment: Comment c/o urinary symptoms or increased blood pressure Name Collection Type:: VoidedPerformed By: #### ADDONUAPLUS #### [place] [address] USARBC,Phczg9-9Synviw7-0Yxn [facility] Physician GroupComment on above:Order Comment: Comment c/o urinary symptoms or increased blood pressure Name Collection Type:: VoidedPerformed By: #### ADDONUAPLUS #### [place] [address] USASPECIFICY GRAVITY,URINE1.940Ngjtjh3.001-1.030NOMS HealthcareComment on above:Order Comment: Comment c/o urinary symptoms or increased blood pressure Name Collection Type:: VoidedPerformed By: #### ADDONUAPLUS #### [place] [address] USASquamous Epithelial Cell,Kcinn5-1Ncnrfa5-4Ayn [facility] Physician GroupComment on above:Order Comment: Comment c/o urinary symptoms or increased blood pressure Name Collection Type:: VoidedPerformed By: #### ADDONUAPLUS #### [place] [address] USAUROBILINOGEN,URINENormalNormalNormalNOMS HealthcareComment on above:Order Comment: Comment c/o urinary symptoms or increased blood pressure Name Collection Type:: VoidedPerformed By: #### ADDONUAPLUS #### [place] [address] USAWBC,Stohg5-3Tsnasc3-1Swe [facility] Physician GroupComment on above:Order Comment: Comment c/o urinary symptoms or increased blood pressure Name Collection Type:: VoidedPerformed By: #### ADDONUAPLUS #### [place] [address] USAEpithelial cells.squamous [#/area] in Urine sediment by Automated countOrdered By: Eduardo Cruz on 12-76-0147Ojmaulqlor cells.squamous Auto (Urine sed) [#/Area]1-2 [HPF]0-2FRegency Hospital Cleveland East Erythrocytes [#/area] in Urine sediment by Automated countOrdered By: Eduardo Cruz on 20-01-9839QHE Auto (Urine sed) [#/Area]1-2 [HPF]0-4FRegency Hospital Cleveland EastGlucose [Mass/volume] in Urine by Test stripOrdered By: Eduardo Cruz on 35-46-6120Cvdlaqy Test strip (U) [Mass/Vol]Normal mg/dLNormalDelaware County HospitalHemoglobin Test strip Ql (U)Ordered By: Eduardo Cruz on 58-35-4390Mmrjxtyuni Ql (U)3+HighNegativeDelaware County Hospital Hyaline casts [#/area] in Urine sediment by Automated countOrdered By: Eduardo Cruz on 88-97-1295Qccqlzs casts Auto (Urine sed) [#/Area]None [LPF]0-8Delaware County HospitalKetones [Presence] in Urine by Test stripon 12-02-2024 Ketones Ql (U)NegativeNormalNegativeNOMS HealthcareComment on above:Order Comment: Comment c/o urinary symptoms or increased blood pressure Name Collection Type:: VoidedPerformed By: #### ADDONUAPLUS #### [facility] [address] [place] [address] USALeukocyte esterase [Presence] in Urine by Test stripon 81-97-5788Egztsbgwo esterase Test strip Ql (U)NegativeNormalNegativeNOMS HealthcareComment on above:Order Comment: Comment c/o urinary symptoms or increased blood pressure Name Collection Type:: VoidedPerformed By: #### ADDONUAPLUS #### [facility] [address] [place] [id number] USALeukocytes [#/area] in Urine sediment by Automated count Ordered By: Eduardo Cruz on 03-25-4959MLC Auto (Urine sed) [#/Area]1-2 [HPF]0-4 [facility] HospitalMucus [Presence] in Urine by AutomatedOrdered By: Eduardo Cruz on 71-35-2187Jcnfy Auto Ql (U)1+ [LPF]AbnormalDelaware County HospitalNitrite Test strip Ql (U)Ordered By: Eduardo Cruz on 98-66-8900Tawjamf Ql (U)NegativeNegativeDelaware County HospitalProtein Test strip (U) [Mass/Vol]Ordered By: Eduardo Cruz on 22-13-2394Cmswkbl (U) [Mass/Vol]NegativeNegativeRegional Medical Centerpecific gravity Test strip (U) [Rel density]Ordered By: Eduardo Cruz on 36-42-8530Uzxuqvwv gravity (U) [Rel density]1.0171.001-1.030Del[facility] County HospitalUrobilinogen Test strip (U) [Mass/Vol]Ordered By: Eduardo Cruz on 56-43-9086Ypwrvkqeelmn (U) [Mass/Vol]Normal mg/dLNormFulton County Health CenterpH of Urine by Test stripon 79-56-6354yU (U)5.5 [pH]Normal5.0-9.0NOMS HealthcareComment on above:Order Comment: Comment c/o urinary symptoms or increased blood pressure Name Collection Type:: VoidedPerformed By: #### ADDONUAPLUS #### [place] [address] USABasophils Auto (Bld) [#/Vol]Ordered By: Elizabeth Osborne ([place]) on 96-61-6275Ygakybfbc (Bld) [#/Vol]0.0 10 3/uL0.0-0.1FRegency Hospital Cleveland EastBasophils/100 WBC Auto (Bld)Ordered By: Elizabeth Osborne ([place]) on 89-22-6570Rqbvkznlr/100 WBC (Bld)0.3 %0.2-2.0[facility] Eosinophils/100 WBC Auto (Bld)Ordered By: (Roman) Elizabeth Osborne on 12-01-2024 Eosinophils/100 WBC (Bld)1.8 %0.9-7.0[facility] Erythrocyte distribution width Auto (RBC) [Ratio]Ordered By: Elizabeth Osborne ([place]) on 02-74-9587Peazlweygro distribution width (RBC) [Ratio]14.0 %11.0-15.0 [facility] HospitalGlobulin Calc (S) [Mass/Vol]Ordered By: (Roman) Elizabeth Osborne on 75-51-1861Gcrcpvik (S) [Mass/Vol]3.6 g/dLDelaware County HospitalGlomerular filtration rate (GFR) estimation in non- AmericanOrdered By: (Roman) Elizabeth India on 84-40-3754MTP/1.73 sq M.predicted among non-blacks MDRD (S/P/Bld) [Vol rate/Area]mL/min/{1.73_m2}>=60 mL/min/1.73m 2FRegency Hospital Cleveland EastHematocrit Auto (Bld) [Volume fraction]Ordered By: (Roman) Elizabeth Osborne on 12-84-3466Tvqfwxxfwa (Bld) [Volume fraction]38.0 %36.0-48.0Del[facility] HospitalHemoglobin [Mass/volume] in BloodOrdered By: (Roman) Elizabeth Osborne on 00-56-1405Imuwrrzlsu (Bld) [Mass/Vol]13.0 g/dL12.0-16.0[facility] HospitalLaboratory - Chemistry and Chemistry - challengeOrdered By: (Roman) Elizabeth Osborne on 43-09-9719Pqihwmgyy Ql (U)NegativeNEGATIVEDelaware County Hospital Glucose (U) [Mass/Vol]NegativeNEGATIVEDelaware County HospitalKetones Ql (U)NegativeNEGATIVEDelaware County HospitalpH (U)6.0 [pH]5.0-9.0 Regional Medical Centerpecific gravity (U) [Rel density]1.025 1.005-1.025Delaware County HospitalUrobilinogen Qn (U)1.0 {Fabián'U}/dL0.2-1.0[facility] HospitalAlbumin [Mass/Vol]3.1 g/dL Low3.4-5.0[facility] HospitalALP [Catalytic activity/Vol]45 U/LLow 46-116Del[facility] County HospitalALT [Catalytic activity/Vol]20 U/L14-59 [facility] HospitalAST [Catalytic activity/Vol]14 U/YAso59-45 [facility] HospitalBilirubin [Mass/Vol]0.4 mg/dL0.2-1.0[facility] HospitalCalcium [Mass/Vol]8.6 mg/dL8.5-10.1FRegency Hospital Cleveland EastChloride [Moles/Vol]106 mmol/L10-013EoofdcxlvDelaware County HospitalCO2 [Moles/Vol]25.7 mmol/L21.0-32.0[facility] Creatinine [Mass/Vol]0.37 mg/dLLow0.55-1.02[facility] GFR/1.73 sq M.predicted MDRD (S/P/Bld) [Vol rate/Area]mL/min/{1.73_m2}>=60 mL/min/1.73m 2FRegency Hospital Cleveland EastGlucose [Mass/Vol]61 mg/dLLow 74-106Del[facility] County HospitalPotassium [Moles/Vol]3.9 mmol/L3.5-5.1 [facility] HospitalProtein [Mass/Vol]6.7 g/dL6.4-8.2FGerman Hospitalodium [Moles/Vol]139 mmol/Q724-232TqbhskisvDelaware County HospitalUrea nitrogen [Mass/Vol]3.0 mg/dLLow7.0-18.0[facility] HospitalUrea nitrogen/Creatinine [Mass ratio]8.1 mg/mgDelaware County HospitalLaboratory - Hematology and Cell countsOrdered By: Elizabeth Osborne ([place]) on 40-80-7520Jadjhkvh granulocytes/100 WBC (Bld)1.0 %High0.0-0.5 [facility] HospitalLaboratory - Specimen informationOrdered By: Elizabeth Osborne ([place]) on 66-10-7349Hlkahdupgi (U)CLEARCLEARFRegency Hospital Cleveland EastColor (U)LT. YELLOWYELLOWDelaware County Hospital Laboratory - UrinalysisOrdered By: Elizabeth Osborne ([place]) on 40-27-8985Rtdfgcvzf esterase Test strip Ql (U)NegativeNEGATIVEDelaware County Hospital Nitrite Ql (U)NegativeNEGATIVEDelaware County HospitalProtein Ql (U) NegativeNEG/TRACEDelaware County HospitalLeukocytes [#/volume] corrected for nucleated erythrocytes in Blood by Automated counOrdered By: (Owens) Elizabeth Osborne on 10-30-0025AIQ corrected for nucl RBC Auto (Bld) [#/Vol]10.0 10 3/uL4.0-11.0Del[facility] HospitalLymphocytes Auto (Bld) [#/Vol]Ordered By: (Owens) Elizabethnura Osborne on 93-38-1389Hcwbhcizuji (Bld) [#/Vol]2.2 10 3/uL1.2-3.8Del[facility] HospitalLymphocytes/100 WBC Auto (Bld)Ordered By: (Owens) Elizabethnura Thomason on 78-98-2832Tacxflshjgl/100 WBC (Bld)22.1 %20.5-60.0Del[facility] County HospitalMCH Auto (RBC) [Entitic mass]Ordered By: (Owens) Elizabethnura Thomason on 80-87-6763YAH (RBC) [Entitic mass] 29.8 pg26.7-34.0Del[facility] County HospitalMCHC Auto (RBC) [Mass/Vol] Ordered By: (Owens) Elizabeth Osborne on 01-16-3136BOED (RBC) [Mass/Vol]34.2 g/dL 29.9-35.2FRegency Hospital Cleveland EastMCV Auto (RBC) [Entitic vol]Ordered By: (Owens) Elizabethnura Thomason on 16-36-7322BJU (RBC) [Entitic vol]87.2 fL81.0-99.0 [facility] HospitalMonocytes Auto (Bld) [#/Vol]Ordered By: (Owens) Elizabethnura Thomason on 61-65-6021Wgefyjeby (Bld) [#/Vol]0.7 10 3/uL0.3-0.8 [facility] HospitalMonocytes/100 WBC Auto (Bld)Ordered By: (Owens) Elizabeth India on 97-64-2831Emzohpatq/100 WBC (Bld)6.5 %1.7-12.0 [facility] HospitalNeutrophils Auto (Bld) [#/Vol]Ordered By: (Roman) Elizabeth Osborne on 41-34-4667Wotowiywnao (Bld) [#/Vol]6.9 10 3/uLHigh 1.4-6.5FRegency Hospital Cleveland EastNeutrophils/100 WBC Auto (Bld)Ordered By: Angelina) Elizabeth Osborne on 80-64-5893Olyfzhqvogm/100 WBC (Bld)68.3 %43.0-75.0 [facility] HospitalNo Panel InformationOrdered By: (Roman) Elizabeth Osborne on 01-07-3962Islwj Microscopic ReviewNODelaware County HospitalUrine Occult BloodNegativeNEGATIVEDelaware County Hospital Eosinophils # (Auto)0.2 10 3/uL0.0-0.7FRegency Hospital Cleveland EastImmature Granulocyte # (Auto)0.10 10 3/uLHigh0.00-0.03[facility] Platelet mean volume Auto (Bld) [Entitic vol]Ordered By: Angelina) Elizabeth Osborne on 14-38-6034Iybfxzig mean volume (Bld) [Entitic vol]8.3 fLLow9.5-13.5FRegency Hospital Cleveland EastPlatelets Auto (Bld) [#/Vol]Ordered By: Angelina) Elizabeth Osborne on 53-78-6976Szmkazthl (Bld) [#/Vol]177 10 3/aJ396-545JrmkbxaajDelaware County HospitalRBC Auto (Bld) [#/Vol]Ordered By: Elizabeth Osborne ([place]) on 87-38-9796FZR (Bld) [#/Vol]4.36 10 6/uL4.20-5.40Regional Medical Centererum or plasma albumin/globulin mass ratioOrdered By: (Roman) Elizabeth Osborne on 72-07-3324Qdkegtr/Globulin [Mass ratio]0.9 {ratio}Regional Medical Centererum or plasma anion gap determinationOrdered By: Angelina) Elizabeth Osborne on 00-62-7837Knlpj gap [Moles/Vol]11.2 mmol/LFRegency Hospital Cleveland EastBasophils Auto (Bld) [#/Vol]Ordered By: Chris Dickerson on 17-23-1472Twfdsseai (Bld) [#/Vol]0.0 10 3/uL0.0-0.1FRegency Hospital Cleveland EastBasophils/100 WBC Auto (Bld)Ordered By: Chris Dickerson on 11-30-2024 Basophils/100 WBC (Bld)0.2 %0.2-2.0[facility] Eosinophils/100 WBC Auto (Bld)Ordered By: Chris Dickerson on 11-30-2024 Eosinophils/100 WBC (Bld)1.7 %0.9-7.0[facility] Erythrocyte distribution width Auto (RBC) [Ratio]Ordered By: Chris Dickerson on 27-11-9928Vxognnnksxa distribution width (RBC) [Ratio]14.1 %11.0-15.0[facility] HospitalGlobulin Calc (S) [Mass/Vol]Ordered By: Chris Dickerson on 64-66-2573Hzmqkgxv (S) [Mass/Vol]3.3 g/dLDelaware County Hospital Glomerular filtration rate (GFR) estimation in non- AmericanOrdered By: Chris Dickerson on 11-64-9045CDP/1.73 sq M.predicted among non-blacks MDRD (S/P/Bld) [Vol rate/Area]mL/min/{1.73_m2}>=60 mL/min/1.73m 2FRegency Hospital Cleveland EastHematocrit Auto (Bld) [Volume fraction]Ordered By: Chris Dickerson on 33-61-4463Pivodmipfl (Bld) [Volume fraction]36.2 %36.0-48.0[facility] HospitalHemoglobin [Mass/volume] in BloodOrdered By: Chris Dickerson on 26-17-7703Vquobgtcwf (Bld) [Mass/Vol]12.6 g/dL12.0-16.0[facility] HospitalLaboratory - Chemistry and Chemistry - challengeOrdered By: Chris Dickerson on 74-92-6631Qhylhjfnm Ql (U)NegativeNEGATIVEDelaware County HospitalGlucose (U) [Mass/Vol]NegativeNEGATIVEDelaware County HospitalKetones Ql (U)NegativeNEGATIVEDelaware County HospitalpH (U)6.0 [pH]5.0-9.0Regional Medical Centerpecific gravity (U) [Rel density] 1.0151.005-1.025Del[facility] County HospitalUrobilinogen Qn (U)1.0 {Fabián'U}/dL0.2-1.0[facility] HospitalAlbumin [Mass/Vol]3.1 g/dL Low3.4-5.0[facility] HospitalALP [Catalytic activity/Vol]47 U/L 46-116Del[facility] HospitalALT [Catalytic activity/Vol]20 U/L14-59 [facility] HospitalAST [Catalytic activity/Vol]12 U/XXkc93-39 [facility] HospitalBilirubin [Mass/Vol]0.3 mg/dL0.2-1.0[facility] HospitalBilirubin.direct [Mass/Vol]0.1 mg/dL0.0-0.2FRegency Hospital Cleveland EastCalcium [Mass/Vol]8.8 mg/dL8.5-10.1FRegency Hospital Cleveland EastChloride [Moles/Vol]108 mmol/KWrxh50-759KlfebydktDelaware County HospitalCO2 [Moles/Vol]26.0 mmol/L21.0-32.0[facility] Creatinine [Mass/Vol]0.32 mg/dLLow0.55-1.02[facility] GFR/1.73 sq M.predicted MDRD (S/P/Bld) [Vol rate/Area]mL/min/{1.73_m2}>=60 mL/min/1.73m 2FRegency Hospital Cleveland EastGlucose [Mass/Vol]74 mg/dN80-114 [facility] HospitalPotassium [Moles/Vol]4.1 mmol/L3.5-5.1FRegency Hospital Cleveland EastProtein [Mass/Vol]6.4 g/dL6.4-8.2FGerman Hospitalodium [Moles/Vol]142 mmol/P038-068NmeeguzwsDelaware County HospitalUrate [Mass/Vol]3.0 mg/dL2.6-6.0[facility] HospitalUrea nitrogen [Mass/Vol]7.0 mg/dL7.0-18.0[facility] HospitalUrea nitrogen/Creatinine [Mass ratio]21.9 mg/mgDelaware County Hospital Laboratory - Hematology and Cell countsOrdered By: Chris Dickerson on 11-30-2024 Immature granulocytes/100 WBC (Bld)0.7 %High0.0-0.5FRegency Hospital Cleveland EastLaboratory - Specimen informationOrdered By: Chris Dickerson on 11-30-2024 Appearance (U)CLEARCLEARFRegency Hospital Cleveland EastColor (U)LT. YELLOW YELLOWDelaware County HospitalLaboratory - UrinalysisOrdered By: Chris Dickerson on 37-01-5713Smmgtnsme esterase Test strip Ql (U)SMALLAbnormal NEGATIVEDelaware County HospitalMucus Ql (Urine sed)TRACEAbnormalNONE SEENDelaware County HospitalNitrite Ql (U)NegativeNEGATIVEDelaware County HospitalProtein Ql (U)NegativeNEG/TRACEDelaware County HospitalLeukocytes [#/volume] corrected for nucleated erythrocytes in Blood by Automated counOrdered By: Chris Dickerson on 74-79-9154WPP corrected for nucl RBC Auto (Bld) [#/Vol]8.7 10 3/uL4.0-11.0[facility] Lymphocytes Auto (Bld) [#/Vol]Ordered By: Chris Dickerson on 30-73-8045Grjzvedqhii (Bld) [#/Vol]2.0 10 3/uL1.2-3.8[facility] HospitalLymphocytes/100 WBC Auto (Bld)Ordered By: Chris Dickerson on 09-78-2027Lhriztidjva/100 WBC (Bld) 22.9 %20.5-60.0[facility] HospitalH Auto (RBC) [Entitic mass] Ordered By: Chris Dickerson on 53-00-5239SSJ (RBC) [Entitic mass]30.0 pg26.7-34.0 [facility] HospitalMCHC Auto (RBC) [Mass/Vol]Ordered By: Chris Dickerson on 39-69-9854TOKT (RBC) [Mass/Vol]34.8 g/dL29.9-35.2FRegency Hospital Cleveland EastMCV Auto (RBC) [Entitic vol]Ordered By: Chris Dickerson on 22-66-6916OTV (RBC) [Entitic vol]86.2 fL81.0-99.0[facility] HospitalMonocytes Auto (Bld) [#/Vol]Ordered By: Chris Dickerson on 11-30-2024 Monocytes (Bld) [#/Vol]0.6 10 3/uL0.3-0.8[facility] Monocytes/100 WBC Auto (Bld)Ordered By: Chris Dickerson on 02-80-7933Zkgiuzbgu/100 WBC (Bld)7.2 %1.7-12.0[facility] HospitalNeutrophils Auto (Bld) [#/Vol]Ordered By: Chris Dickerson on 46-87-1948Cbaalfhimmn (Bld) [#/Vol]5.9 10 3/uL1.4-6.5FRegency Hospital Cleveland EastNeutrophils/100 WBC Auto (Bld) Ordered By: Chris Dickerson on 48-22-7038Aukifjkbyxn/100 WBC (Bld)67.3 %43.0-75.0 [facility] HospitalNo Panel InformationOrdered By: Chris Dickerson on 18-05-7561Mwmms BacteriaMODERATE #/HPFAbnormalNONE [facility] CenterUrine Culture ReflexedYES-FRHarrison Community Hospital Urine Occult BloodNegativeNEGATIVEDelaware County HospitalUrine Other CastsNONE SEEN #/LPFNONE [facility] CenterUrine Other CrystalsNone Seen #/HPFNone [facility] Medical CenterUrine RBC0-2 #/HPF0-2FRegency Hospital Cleveland EastUrine Squamous Epithelial CellsFEW #/LPFAbnormalNONE/RAREDelaware County HospitalUrine WBC0-2 #/HPF AbnormalNONE [facility] CenterEosinophils # (Auto)0.2 10 3/uL0.0-0.7FRegency Hospital Cleveland EastImmature Granulocyte # (Auto)0.06 10 3/uLHigh0.00-0.03[facility] HospitalPlatelet mean volume Auto (Bld) [Entitic vol]Ordered By: Chris Dickerson on 13-49-3064Xnqcdzxm mean volume (Bld) [Entitic vol]8.7 fLLow9.5-13.5FRegency Hospital Cleveland EastPlatelets Auto (Bld) [#/Vol]Ordered By: Chris Dickerson on 21-74-3787Ltxesoguy (Bld) [#/Vol] 185 10 3/qH968-250XkafhjstuDelaware County HospitalRBC Auto (Bld) [#/Vol]Ordered By: Chris Dickerson on 86-09-2322SDQ (Bld) [#/Vol]4.20 10 6/uL4.20-5.40[facility] Medical Centererum or plasma albumin/globulin mass ratioOrdered By: Chris Dickerson on 87-33-8643Ygidgxj/Globulin [Mass ratio]0.9 {ratio}[facility] Centererum or plasma anion gap determinationOrdered By: Chris Dickerson on 20-64-3191Swosk gap [Moles/Vol]12.1 mmol/LFRegency Hospital Cleveland EastUrine Cultureon [id number] identified Cx Nom (U)50,000 colonies/ml mixed bacterial skin contaminants 2 Days PERFORMED BY: [place] [address] PATHOLOGIST DEVELOPMENTAL BEHAVIORAL PHYSICIAN DAMIÁN DOSHI M.D.NormalThe Critical Access Hospital Physician GroupComment on above: Performed By: #### [facility] #### [place] [address] USARECURRENT VAGINITIS (HTRX)on 01-74-1226MJEFJHTLW VAGINAE0 NOMS HealthcareATOPOBIUM VAGINAENot detectedNOMS HealthcareBVAB 2,3 (BACTERIAL VAGINOSIS ASSOCIATED BACTERIA 2, 3); MOBILUNCUS [id number] HealthcareBVAB 2,3 (BACTERIAL VAGINOSIS ASSOCIATED BACTERIA 2, 3); MOBILUNCUS SPPNot detectedNOMS HealthcareCANDIDA ALBICANS, PARAPSILOSIS, RZVUQRJTAP4JZNB HealthcareCANDIDA ALBICANS, PARAPSILOSIS, TROPICALISNot detectedNOMS HealthcareCANDIDA GLABRATA0 NOMS HealthcareCANDIDA GLABRATANot detectedNOMS HealthcareCANDIDA MXMRIH5GTKO HealthcareCANDIDA KRUSEINot detectedNOMS HealthcareCHLAMYDIA UXOGAPHVONF4XBVZ HealthcareCHLAMYDIA TRACHOMATISNot detectedNOMS HealthcareGARDNERELLA VAGINALIS0 NOMS HealthcareGARDNERELLA VAGINALISNot detectedNOMS HealthcareMEGASPHAERA (TYPES 1, 2)0NOMS HealthcareMEGASPHAERA (TYPES 1, 2)Not detectedNOMS Healthcare MYCOPLASMA VZIXNRTPOL7ZBIE HealthcareMYCOPLASMA GENITALIUMNot detectedNOMS HealthcareNEISSERIA ATIVUESXVCC5VMAP HealthcareNEISSERIA GONORRHOEAENot detected NOMS HealthcareTRICHOMONAS IOZPPDHTC7RVPB HealthcareTRICHOMONAS VAGINALISNot detectedNOMS HealthcareNOMS HealthcareALL THYROID STIM HORMONEon 14-77-7051DAQ Qn1.702 m[IU]/LNOMS HealthcareCLINISYNCNOMS HealthcareAlpha-fetoprotein (AFP) measurement (szlpifvn-uk-uemkrk)Ordered By: Les Martinez on 37-99-0342ZUB [MoM] 0.87.[facility] HospitalAssess gestational ageOrdered By: Les Martinez on 41-49-1275Dvgndkjuysr age18.0 weeks.[facility] Estimation of maternal age-specific risk of Down syndrome birthOrdered By: Les Martinez on 57-44-7854Uft [Time]30.1 yr.[facility] HospitalInsulin dependent diabetes mellitus detectionOrdered By: Les Martinez on 11-20-2024 Insulin dependent diabetes mellitus QlNo.[facility] Interpretation of serum or plasma second trimester quad maternal screen (narrative reOrdered By: Les Martinez on 83-20-0674Efdibg trimester quad maternal screen Gonzales [Interp]Comment.[facility] HospitalComment on above: Interpretation: Screen NegativeThis result is screen negative for OSB. [...] be offered to women age 35 and older.Second trimester quad maternal screen Gonzales [Interp]Negative.[facility] HospitalLaboratory - Chemistry and Chemistry - challengeOrdered By: Les Martinez on 51-13-0104WCI Qn1.702 m[IU]/L 0.358-3.740[facility] HospitalNo Panel InformationOrdered By: Les Martinez on 48-19-8880HUB Triple Screen CommentComment.[facility] HospitalComment on above:Gisel Gandhi, Ph.D., DABCCDirectorReferences: Available Upon Request.Multiples Of Median Cutoffs For AFP ElevationsSingleton 2.5 Black 2.8IDD 2.0 Twins 4.5 Abbreviation DefinitionsIDD - Insulin Dep DiabetesOSBR - Open Spina Bifida RiskFor further inquiries contact [employer] at [phone].This test was developed and its performance characteristicsdetermined by [employer]. It has not been cleared or approvedby the Food and Drug Administration.Performed at: [facility] [id number] [place], [place] [id number] Director: Lorena Ellis [facility], Phone: [phone] Fetoprotein Results ReceivedReport.[facility] HospitalGestational Age Calculation MethodUltrasound.[facility] HospitalComment on above:18.0 on 11/20/2024Recalculations are not recommended when gestational datingby LMP and ultrasound are within 10 days. Maternal Quad Test Eimk47404.[facility] HospitalMaternal RaceOther .[facility] HospitalMultiple PregnancyNo.[facility]ional Medical Centererum or plasma lydoe-1-dwtsmxbnqcz measurement (mass/volume) Ordered By: Les Martinez on 33-17-1708IGS [Mass/Vol]27.6 ng/mL.[facility] HospitalUrinalysis macro (dipstick) panel (U)on 09-02-5842Ehzooelgt, UA NegativeNegative - 4(70) +++ mg/dLNOMS HealthcareBlood, UANegativeNegative - 50 Yehuda/mcLNOMS HealthcareClarity, UAClearNOMS HealthcareColor, UAYellowNOMS HealthcareGlucose, UANegativeNegative - 2000(110) ++++ mg/dLJefferson Memorial Hospital Interpretation and review of laboratory resultsAbnormalNODC HealthcareKetones, UANegativeNegative - 160(16) ++++ mg/dLUNIVERSITY OF UTAH HOSPITAL HealthcareLeukocytes, UA2+Negative - 500+++ Kourtney/mcLNOParkland Health CenterNitrite, UANegativeNegative - PositiveNOMS HealthcarepH, UA85 - 9NODC HealthcareProtein, UANegativeNegative - 1999(20) ++++ mg/dLUNIVERSITY OF UTAH HOSPITAL HealthcareSpec Grav, UA1.011 - 1.03NOParkland Health CenterUrobilinogen, UA1.0 0.2 - 12 mg/dLAtrium HealthLaboratory - Chemistry and Chemistry - challengeOrdered By: Chris Dickerson on 50-65-1489Dnaepqcsg Ql (U)Negative NEGATIVEDelaware County HospitalGlucose (U) [Mass/Vol]NegativeNEGATIVE [facility] HospitalKetones Ql (U)NegativeNEGSalem Regional Medical CenterpH (U)7.5 [pH]5.0-9.0[facility] Specific gravity (U) [Rel density]1.0101.005-1.025[facility] HospitalUrobilinogen Qn (U)1.0 {Fabián'U}/dL0.2-1.0[facility] HospitalLaboratory - Specimen informationOrdered By: Chris Dickerson on 11-17-2024 Appearance (U)CLEARCLEARFRegency Hospital Cleveland EastColor (U)LT. YELLOW YELLOWDelaware County HospitalLaboratory - UrinalysisOrdered By: Chris Dickerson on 13-74-5178Ylvugrlqx esterase Test strip Ql (U)NegativeNEGATIVE [facility] HospitalMucus Ql (Urine sed)NONE SEENNONE [facility] Medical CenterNitrite Ql (U)NegativeNEGSalem Regional Medical CenterProtein Ql (U)NegativeNEG/TRACEDelaware County HospitalNo Panel InformationOrdered By: Chris Dickerson on 18-53-3551Bokex BacteriaTRACE #/HPF AbnormalNONE [facility] Medical CenterUrine Culture ReflexedNO [facility] HospitalUrine Occult BloodNegativeNEGSalem Regional Medical CenterUrine Other CastsNONE SEEN #/LPFNONE SEENDelaware County HospitalUrine Other CrystalsNone Seen #/HPFNone [facility] Medical CenterUrine RBCNONE SEEN #/HPF0-2FRegency Hospital Cleveland EastUrine Squamous Epithelial CellsRARE #/LPFNONE/RAREDelaware County HospitalUrine WBCNONE SEEN #/HPFNONE [facility] Ultrasound - Officeon 94-51-9751Xcjbcfuoc Study observation (narrative)[facility] HospitaledicRegions Hospital SystemUrinalysis macro (dipstick) panel (U)on 41-99-9404Rfofrzreq, UA NegativeNegative - 4(70) +++ mg/dLNOMS HealthcareBlood, UANegativeNegative - 50 Yehuda/mcLNOMS HealthcareClarity, UAClearNOMS HealthcareColor, UAYellowNOMS HealthcareGlucose, UANegativeNegative - 2000(110) ++++ mg/dLNOMS Healthcare Interpretation and review of laboratory resultsNormalNOMS HealthcareKetones, UA NegativeNegative - 160(16) ++++ mg/dLNOMS HealthcareLeukocytes, UANegative Negative - 500+++ Kourtney/mcLNOMS HealthcareNitrite, UANegativeNegative - Positive NOMS HealthcarepH, UA75 - 9NOMS HealthcareProtein, UANegativeNegative - 2000(20) ++++ mg/dLNOMS HealthcareSpec Grav, UA1.011 - 1.03NOMS HealthcareUrobilinogen, UA1.00.2 - 12 mg/dLNOMS HealthcareNOMS HealthcareAppearance of UrineOrdered By: Kassidy Arriaza on 32-49-8717Bnmsdbphno (U)ClearNormalClearDelaware County HospitalComment on above:Order Comment: Name Collection Type:: Clean- Voided MidstreamPerformed By: #### UA, CUU #### [place] [address] USABilirubin Test strip Ql (U)Ordered By: Kassidy Arriaza on 34-86-4836Pmpxzydrq Ql (U)NegativeNegSelect Medical Cleveland Clinic Rehabilitation Hospital, [place] Chlamydia/GC Amplificationon 86-28-2627Gvtpdshxc Trachomotis, NAANegativeNormal NegativeThe Critical Access Hospital Physician GroupComment on above:Order Comment: SOURCE OF SPECIMEN: GenitalPerformed By: #### GCCHLAMAMP #### [facility] , #### CUGEN #### [place] [address] USANeisseria Gonorrhoeae, NAANegativeNormalNegativeThe Critical Access Hospital Physician GroupComment on above:Order Comment: SOURCE OF SPECIMEN: GenitalResult Comment: Performed at: = - [facility] [id number] Building Construction Foreman: Dagmar Love MD, Phone: [phone] PERFORMED BY: [place] [address] PATHOLOGIST DEVELOPMENTAL BEHAVIORAL PHYSICIAN DAMIÁN DOSHI M.D.Performed By: #### GCCHLAMAMP #### [facility] , #### CUGEN #### [place] [address] USAColor of Urine by AutoOrdered By: Kassidy Arriaza on 41-07-6187Jlyul (U)ColorlessNormalYellowDelaware County HospitalComment on above:Order Comment: Name Collection Type:: Clean-Voided MidstreamPerformed By: #### UA, CUU #### [place] [address] USAGenital Cultureon 31-95-9689Gjkfent CultureGenital Results Light Normal Urogenital Damián 2 Days No More GC Specimen not tested for Neisseria gonorrheae PERFORMED BY: [place] [address] PATHOLOGIST DEVELOPMENTAL BEHAVIORAL PHYSICIAN DAMIÁN DOSHI M.D.NormalThe Critical Access Hospital Physician GroupComment on above: Performed By: #### GCCHLAMAMP #### [facility] , #### CUGEN #### [place] [address] USAGenital specimen bacteria identification by aerobic cultureOrdered By: Kassidy Arriaza on 08-75-1625Gkgvzkdq identified Aer cx Nom (Genital specimen)[facility] HospitalGlucose [Mass/volume] in Urine by Test stripOrdered By: Kassidy Arriaza on 41-71-3069Upxpdeq Test strip (U) [Mass/Vol]Normal mg/dLNormFulton County Health CenterHemoglobin Test strip Ql (U)Ordered By: Kassidy Arriaza on 51-54-9795Mrgknnxfse Ql (U)Negative NegativeDelaware County HospitalKetones [Presence] in Urine by Test stripOrdered By: Kassidy Arriaza on 84-03-7093Etswsii Ql (U)TraceNormalNegative [facility] HospitalComment on above:Order Comment: Name Collection Type:: Clean-Voided MidstreamPerformed By: #### UA, CUU #### [facility] [address] [place] [address] USALaboratory - Microbiology and Antimicrobial susceptibility Ordered By: Kassidy Arriaza on 10-18-2024. trachomatis DNA AC+probe Ql (Unsp spec)NegativeNegSelect Medical Cleveland Clinic Rehabilitation Hospital, BeachwoodN. gonorrhoeae DNA AC+probe Ql (Unsp spec)NegativeNegSelect Medical Cleveland Clinic Rehabilitation Hospital, BeachwoodComment on above:Performed at: = - [facility] [id number] Director: Dagmar Love MD, Phone: [phone] esterase [Presence] in Urine by Test stripOrdered By: Kassidy Arriaza on 10-18-2024 Leukocyte esterase Test strip Ql (U)NegativeNormalNegSelect Medical Cleveland Clinic Rehabilitation Hospital, BeachwoodComment on above:Order Comment: Name Collection Type:: Clean- Voided MidstreamPerformed By: #### UA, CUU #### [facility] [address] [place] [address] USANitrite Test strip Ql (U)Ordered By: Kassidy Arriaza on 32-30-3878Zkeirgd Ql (U)NegativeNegSelect Medical Cleveland Clinic Rehabilitation Hospital, BeachwoodProtein Test strip (U) [Mass/Vol]Ordered By: Kassidy Arriaza on 13-14-8848Hewqsoo (U) [Mass/Vol]NegativeNegSt. Rita's Hospitalpecific gravity Test strip (U) [Rel density]Ordered By: Kassidy Arriaza on 09-29-8712Jdcwuxmr gravity (U) [Rel density]1.0071.001-1.030[facility] HospitalUS OB <= 14 weeks fetuson 07-56-3932YR OB <= 14 weeks fetusHOLZ[facility] [place] [address] [place] [address] Ultrasound Report Signed Patient: Jaz Sanders MR#: [id number] : 1995 Acct:[id number] Age/Sex: 29 / F ADM Date: 10/18/24 Loc: ER Room: Type: [facility] ER Attending Dr: Ordering Provider: Kassidy [...] Jr., D.ORenae 10/18/2024 2:21 PM Dictation Location: [place] [address] Tech: Natalie Haji Transcribed By: MAITE 10/18/24 1421 Dictated By: Sravan Dickinson Jr, DO 10/18/24 1419 Signed By: 10/18/24 1421NoFormerly [facility], [facility] Physician GroupUnlisted Lab Teston 10-18-2024 ProMPaynesville Hospital SystemUrinalysison 68-30-8485Akkfxmxbk,UrineNegativeNormal NegativeThe Critical Access Hospital Physician GroupComment on above:Order Comment: Name Collection Type:: Clean-Voided MidstreamPerformed By: #### UA, CUU #### [facility] [address] [place], [place] [address] USAGlucose Ql (U)NormalNormalNormColumbia Miami Heart Institute Physician GroupComment on above:Order Comment: Name Collection Type:: Clean-Voided MidstreamPerformed By: #### UA, CUU #### [place] [address] USANitrite,UrineNegativeNormalNegativeHca Florida [facility]ied[facility] Physician GroupComment on above:Order Comment: Name Collection Type:: Clean-Voided MidstreamPerformed By: #### UA, CUU #### [place] [address] USAOccult Blood,UrineNegativeNormalNegativeHca Florida [facility]ied[facility] Physician GroupComment on above:Order Comment: Name Collection Type:: Clean- Voided MidstreamResult Comment: PERFORMED BY: [place] [address] PATHOLOGIST DEVELOPMENTAL BEHAVIORAL PHYSICIAN DAMIÁN DOSHI M.D.Performed By: #### UA, CUU #### [place] [address] USAProtein,UrineNegativeNormalNegativeHca Florida Ovied[facility] Physician GroupComment on above:Order Comment: Name Collection Type:: Clean-Voided MidstreamPerformed By: #### UA, CUU #### [place] [address] USASpecificy [place],Urine1.376Ecbicu4.001-1.030H[facility] Physician GroupComment on above:Order Comment: Name Collection Type:: Clean- Voided MidstreamPerformed By: #### UA, CUU #### [place] [address] USAUrobilinogen,UrineNormalNormalNormColumbia Miami Heart Institute Physician GroupComment on above:Order Comment: Name Collection Type:: Clean- Voided MidstreamPerformed By: #### UA, CUU #### [place] [address] USAUrine Cultureon 43-87-4915Lyzwsfmc identified Cx Nom (U) <9,000 colonies/ml mixed bacterial skin contaminants 2 Days PERFORMED BY: [place] [address] PATHOLOGIST DEVELOPMENTAL BEHAVIORAL PHYSICIAN DAMIÁN DOSHI M.D.[facility] Physician GroupComment on above: Performed By: #### CAESAR, CUU #### [facility] [address] [place] [address] USAUrine cultureOrdered By: Kassidy Arriaza on 10-18-2024 Bacteria identified Cx Nom (U)2 DaysDelaware County Hospital Urobilinogen Test strip (U) [Mass/Vol]Ordered By: Kassidy Arriaza on 10-18-2024 Urobilinogen (U) [Mass/Vol]Normal mg/dLNormalDelaware County HospitalpH of Urine by Test stripOrdered By: Kassidy Arriaza on 20-51-7848iM (U)7.0 [pH] Normal5.0-9.0Del[facility] HospitalComment on above:Order Comment: Name Collection Type:: Clean-Voided MidstreamPerformed By: #### CAESAR, CUU #### [facility] [address] [place] [id number] USAUnlisted Lab Teston 03-74-1085MmhGmsruy Health SystemBOX TESTon 68-68-3415FCQ TEST SENT OUTUNITYNODC LflrgflgesMEZ4POZZWJHMK Healthcare WWA18-69-83VUYS HealthcareUNITY BOX CLINISYMOAB REGION[facility] HealthcareCoding Summaryon 62-41-7221Sfitga SummaryHTMLBase 64 TohkwlfeHKr2uMd+PGhlYWQ+EZ1JJHKxM06ofZVxkU8aQ2UITNgQGsrsHJMSEDlBBzAsqoNxXD6scCUo ZXJu [file] b2x (more content not included)...[facility], [facility] 00-72-9737Chuzhnz LCFINALInvalid Interpretation [facility] on above:Result Comment: TOXASSURE COMP DRUG ANALYSIS,UR Test Result [...] test is not intended to distinguish between ctink-5-anioezpbhcbbrehlifzl, the predominant form of THC in most herbal or marijuana-based products, and aurhk-0-xjzqtrqqatvvjfznnfnw. Lamotrigine PRESENT Acetaminophen PRESENT Test Result Flag Units Ref Range Creatinine 45 mg/dL >=20 Declared Medications: Medication list was not provided. For clinical consultation, please call . ToxAssure, ToxAssure FLEX or MAT drug testin -Technical component - Data analysis performed at [facility], [facility] [address]. [phone]. Building Construction Foreman César Bains MD. ToxAssure, ToxAssure FLEX or MAT drug testing: -Technical component - Result certification performed at [facility], [facility], [place] [address]. [phone] Building Construction Foreman César Bains MD. Performed At: [facility] [address] [id number] Brendon Elisabeth Adama [facility] Ph:[phone] By: #### [id number] ####[facility] (DEFAULT)[address] [place] [address]F Urineon 09-28-2024 UrineMixed skin, or urogenital damián. Clinically insignificantNormalSelect Medical Cleveland Clinic Rehabilitation Hospital, AvonComment on above:Performed By: #### [id number] ####[facility] (DEFAULT)[address] [place] [address]SRwBj Screen LCon 09-27-2024 HBsAg Screen LCNegativeInvalid Interpretation CodeNegativeSelect Medical [facility] Clinic [facility], [place] Comment on above:Result Comment: Performed At: [address] [id number] J Luis Gray PhD Ph:[phone] By: #### [id number], 8637411, 4627998, 88757023, 4112037231, 06772835, [id number], [id number]####[facility] (DEFAULT)[address] [place] [address] 35364DKB 4th Gen Screen w Reflex LCon 76-76-2369HWO Scr 4th Gen LCNon-ReactiveInvalid Interpretation Code Non ReactiveSelect Medical Cleveland Clinic Rehabilitation Hospital, AvonComment on above:Result Comment: HIV-1/HIV-2 antibodies and HIV-1 p24 antigen were NOT detected. There is no laboratory evidence of HIV infection. HIV Negative Performed At: [facility] [address] [place], [place] [id number] J Luis Gray PhD Ph:[phone] By: #### [id number] #### [facility] (DEFAULT) [address] [place] [address]PPO, Rfx Qn RPR/Confirm TP LCon 25-55-7506LBP LC Non-ReactiveInvalid Interpretation CodeNon ReactiveGlenbeigh Hospital HospitalComment on above:Performed By: #### [id number], 4226374, 2204774, 81789225, 3475595642, 30066448, 6480891807, 95053449####[facility] (DEFAULT)[address] [place] [address]Gmngkzk Antibodies, IgG LCon 09-45-1969Rinixhp Antibodies, IgG LC2.78 indexInvalid Interpretation CodeImmune >0.99[facility] HospitalComment on above:Result Comment: Non-immune <0.90 Equivocal 0.90 - 0.99 Immune >0.99 Performed At: [facility] [address] [place], [place] [id number] J Luis Gray PhD Ph:[phone] By: #### [id number], 0177812, 3528886, 75185897, 3617309954, 64569715, 2371292862, 11464582####[facility] (DEFAULT)[address] [place] [address].Auto Diff 1on 63-97-6030Gobl Floyd %6 %Normal1-12[facility] Hospital, AvonComment on above:Performed By: #### 59902431, 2782638, 1886899, 33187131, 9750886789, 79242258, 7596893561, 35654320####[facility] (DEFAULT)[address] [place] [address] Baso Abs#0.0 p96Mlkkjl5.0-0.2[facility] HospitalComment on above:Performed By: #### 66203675, 1882413, 3509236, 49842937, 5541605298, 54604483, 4479751516, 66076048####[facility] (DEFAULT)[address] [place] [address] Basophils/100 WBC (Bld)0.1 %Low0.2-2.0[facility] HospitalComment on above: Performed By: #### 52874554, 6911467, 3223137, 74199999, 2831961529, 41584682, 8691422040, 36764035####[facility] (DEFAULT)[address] [place] [address] 55687Pyo Abs#0.2 c46Tffgjg7.0-0.4Magrselect medical [facility]iohealth rehabilitation hospital HospitalComment on above: Performed By: #### 86031763, 9480603, 0995101, 28226838, 6210980503, 35162439, 8265145196, 06652228####[facility] (DEFAULT)[address] [place] [address] 25364Uctrwyfaaku/100 WBC (Bld)2.0 %Normal0.9-4.0[facility] Hospital Comment on above:Performed By: #### 09547347, 1202269, 6205126, 43469992, 3887107626, 07860899, 6939210188, 41459432####[facility] (DEFAULT)[address] [place] [address] 660[address]Neoyi Abs#2.0 m72Uszcgx0.3-2.9[facility] HospitalComment on above:Performed By: #### 29748929, 7627181, 1743889, 47986829, 0425117320, 77342595, 3521062009, 48328361####[facility] (DEFAULT)[address] [place] [address]Fzqacqfxqsm/100 WBC (Bld)26 % Gbsosl17-85Wmetexeg HospitalComment on above:Performed By: #### 53624277, 9374542, 5612025, 15575054, 4050171761, 02488047, 8759813772, 48815961 ####[facility] (DEFAULT)[address] [place] [address] 11443Ydna Abs# 0.5 x15Nrxdpb8.0-0.8[facility] Hospital, AvonComment on above:Performed By: #### 37374205, 8630484, 8509770, 88735635, 2042494854, 54752125, 0773345251, 41430186 ####[facility] (DEFAULT)[address] [place] [address]Dmct Abs# 5.1 e98Lcnlfo2.5-9.2MRiverview Health InstituteComment on above:Performed By: #### 26480623, 2340339, 5847665, 68730170, 6921421829, 89278090, 1335744703, 70751157 ####[facility] (DEFAULT)[address] [place] [address] Neutrophils/100 WBC (Bld)66 %Uethnm78-89Rgxjhauc HospitalComment on above: Performed By: #### 69802414, 7323043, 1938695, 53329446, 7067696704, 58521634, 7513238957, 06224075####[facility] (DEFAULT)[address] [place] [address] 66071WIPBcyf 05-86-5806PYW and Rh group Nom (Bld)Hx Check: Not Found Anti-A: 4+ Anti-B: 0 Anti-D: 2+ DCon: NT A1: 0 B: 2+ ABORh Interp: A POSInvalid Interpretation [facility] Rita's HospitalComment on above: Performed By: #### [id number], 8915501, 2057574, 10775655, 3569145249, 98829559, 9446079891, 38475046####[facility] (DEFAULT)[address] [place] [address] 15635LSXX Gelon 22-69-6816GSHU GelNegativeMcKitrick Hospital Comment on above:Performed By: #### 64028337, 0419863, 3540008, 73230268, 1353353394, 13547624, 7802960718, 93040461####[facility] (DEFAULT)[address] [place] [address] 73[address]USO w/ Auto Diffon 29-19-2641Usfcgcntoeq distribution width (RBC) [Ratio]13.2 %Yvmvcp60.5-15.0[facility], AvonComment on above:Performed By: #### 99819744, 0587633, 6138791, 70650880, 5238628841, 48236856, 5303398729, 72285741#### [facility] (DEFAULT) [address] [place] [address] 354[address]Tijmfexjzl (Bld) [Volume fraction]39.9 %Kuegbb02.7-40.4 [facility] Hospital, AvonComment on above:Performed By: #### 64522733, 4716169, 6575272, 07905116, 8858125222, 24756314, 6869027534, 85742969#### [facility] (DEFAULT) [address] [place] [address] 189[address]Lzodiryysz (Bld) [Mass/Vol]13.9 g/lSQhvugw22.3-15.9 [facility], AvonComment on above:Performed By: #### 12647991, 0556206, 7897787, 58343933, 6648092732, 51142780, 4780245136, 77962231#### [facility] (DEFAULT) [address] [place] [address]Oni Diff?AutoInvalid Interpretation [facility] Comment on above:Performed By: #### 18265643, 1669847, 5300555, 06859161, 0818155121, 94997011, 2801684143, 00590184#### [facility] (DEFAULT) [address] [place] [address] 45566EXY (RBC) [Entitic mass]29 abXxudnt90-14Zexwovdu Hospital Comment on above:Performed By: #### 54366460, 6566450, 3154415, 79491367, 3885584707, 68194293, 5783557057, 49886552#### [facility] (DEFAULT) [address] [place] [address] 23696GTWQ (RBC) [Mass/Vol]35 g/dNKsqcbn37-38Qbgpoxaw Hospital Comment on above:Performed By: #### 41230571, 4517169, 5603381, 64821957, 9801118449, 66359879, 6239093289, 46115327#### [facility] (DEFAULT) [address] [place] [address] 90948COS (RBC) [Entitic vol]84 tYGzfvop38-151Pvkfbptk Hospital Comment on above:Performed By: #### 60018956, 5011624, 7394666, 33093161, 4711891763, 52750488, 5141356856, 65342151#### [facility] (DEFAULT) [address] [place] [address] 658[address]Ealsotbi439 x53Unevbi825-885Xdjkrygq HospitalComment on above:Performed By: #### 32120052, 8458394, 0861244, 68149855, 7568625006, 66909368, 4415271745, 22145100#### [facility] (DEFAULT) [address] [place] [address] 51704Bzlxpsev mean volume (Bld) [Entitic vol]6.3 fLNormal 6.3-10.2MRiverview Health InstituteComment on above:Performed By: #### 96181452, 0619019, 2910226, 61038803, 0334214068, 23057268, 6599088531, 51143588#### [facility] (DEFAULT) [address] [place] [address] 13016RXV5.76 g06Uwobua7.70-5.30[facility] HospitalComment on above:Performed By: #### 75167260, 0253712, 7823347, 35345915, 6168852485, 33476528, 1711674736, 46995759#### [facility] (DEFAULT) [address] [place] [address] 19279GFG2.8 g29Wqfleg5.5-10.5[facility], AvonComment on above: Performed By: #### [id number], [id number], [id number], [id number], [id number], [id number], [id number], [id number]#### [facility] (DEFAULT) [address] [place] [address] 95889RWV surface Ag IA on 99-43-0543Jazzocvbr B Surface AntigenNegativeGuernsey Memorial HospitalHIV 1+2 Ab+HIV1 p24 Ag IA Qlon 09-26-2024 HIV 1&2 AB/AGNon-ReactiveGuernsey Memorial HospitalHgbA1c Standardon 09-26-2024.Hb 13.1Invalid Interpretation St. Rita's HospitalComment on above:Performed By: #### [id number], [id number], [id number], [id number], [id number], [id number], [id number], [id number]####[facility] (DEFAULT)[address] [place] [address] .Hgb A1c0.38 g/dLInvalid Interpretation St. Rita's HospitalComment on above: Performed By: #### [id number], [id number], [id number], [id number], [id number], [id number], [id number], [id number]####[facility] (DEFAULT)[address] [place] [address] 12970Qpktevp [Mass/Vol]91 mg/dLInvalid Interpretation St. Rita's HospitalComment on above:Performed By: #### [id number], [id number], [id number], [id number], [id number], [id number], [id number], [id number]####[facility] (DEFAULT)[address] [place] [address] 92112XzH1p (Bld) [Mass fraction]4.8 % 4.0 - 6.0 %[facility], AvonComment on above:Performed By: #### [id number], [id number], [id number], [id number], [id number], [id number], [id number], [id number] ####[facility] (DEFAULT)[address] [place], [place] [address]Jo Panel Informationon 05-11-5860LufJxwsyk [employer] Cloud Computing SystemProvider Orderson 09-26-2024 Provider [id number]#1.00OTGTIFFMcKitrick HospitalRubella IGG immune statuson 73-40-2045Ahdosuh immune IgG2.78ProKettering Health Main Campus SystemT. pallidum IgG+IgM IA Ql (S)on 11-43-9798XevcjaohXbd-Reactive [facility] SystemType and screenon 52-79-5528Qse/Rh(D)PositiveSelect Medical Specialty Hospital - Trumbull AttuneUltrasound - Officeon 43-06-0817GqfIbnpvr [employer] Scheurer HospitalHCG ( test) Ql (U)on 68-10-2138Gwdvvuzlqaywdd and review of laboratory resultsAbnormalNODC HealthcarePreg Test, UrPositiveNegativeNOParkland Health CenterNODC HealthcareUS OB TRANSVAGINALon 42-84-7171HG OB TRANSVAGINALEXAM: US OB TRANSVAGINAL HISTORY: Dating, IVF. COMPARISON: [...] II, MD, PHD at 21-Sep-2024 08:26:46 AM [facility] TeleradiologyNormalNot AvailableComment on above:Order Comment: US OB TRANSVAGINAL No LMP recorded.Urinalysis macro (dipstick) panel (U)on 24-81-8268Lhevbyuph, UA NegativeNegative - 4(70) +++ mg/dLNOMS HealthcareBlood, UANegativeNegative - 50 Yehuda/mcLNOMS HealthcareClarity, UAClearNOMS HealthcareColor, UAYellowNOMS HealthcareGlucose, UANegativeNegative - 2000(110) ++++ mg/dLNOMS Healthcare Interpretation and review of laboratory resultsNormalNOMS HealthcareKetones, UA NegativeNegative - 160(16) ++++ mg/dLNOMS HealthcareLeukocytes, UATraceNegative - 500+++ Kourtney/mcLNOMS HealthcareNitrite, UANegativeNegative - PositiveNOMS HealthcarepH, UA6.55 - 9NOMS HealthcareProtein, UANegativeNegative - 2000(20) ++++ mg/dLNOMS HealthcareSpec Grav, UA1.0251 - 1.03NOMS HealthcareUrobilinogen, UA0.20.2 - 12 mg/dLNOMS HealthcareNOMS HealthcareCNNURSEon 82-07-3489NDPOYLU Nurse Visit (REIAV) JAZ SANDERS ([id number]) 1995 F Date Time Provider Department 09/03/24 10:40 AM US TECH 1 [facility] REJ TORREYV During your visit today, we recorded the following information about you: Manisha Weaver APRN.DEPLOYMENT SPECIALIST 09/03/2024 5:42 PM Signed Jaz Sanders here [...] FHR: 114 Plan Move on to OB Manisha Weaver APRN.JARROD September 03, 2024 5:39 PM Referring Provider: MELODIE HERNANDEZ [[id number]] Allergies As of Date: 09/03/2024 (Not on File) Date Reviewed: 08/20/2024 Reviewed by: Melodie Hernandez APRN.CNP - Fully Assessed Visit Diagnosis:Early stage of (HCC) [Z34.90] Order(s):[facility]ST[facility]IC ULTRASOUND [facility] [[id number]] Order #: [id number]. #:[id number]: 1 Prescriptions as of 09/03/2024 - buPROPion [...] (None) Encounter Status:Closed by BRADFORD DOSS on 09/03/24NoUC HealthExamination level ultrasoundon 09-03-2024 Indication Viability, Repeat Impression - Single, live, intrauterine . - An intrauterine gestational sac with a yolk sac and pole is present. - [place] rump length measurement is consistent with the [...] by conception 6 w + 6 d DARWNI by conception: 04/23/2025 Ultrasound examination on: 09/03/2024 [...] Lt ovary: Visualized Performed By: Nina Farnsworth; [facility] Read By: Bradford Doss M.D.MATERNAL MEDICINETrinity Health SystemRadiology Study observation (narrative)Trinity Health SystemCNNURSEon 98-52-4843SDNJPWJJrtav Visit (REIBD) JAZ SANDERS ([id number]) 1995 F Date Time Provider Department 08/28/24 11:10 AM US TECH 2 [facility] BEAC REIBD During your visit today, we recorded the following information about you: Melodie Hernandez, CONTRACT COORDINATOR.DEPLOYMENT SPECIALIST 08/30/2024 4:36 PM Signed Jaz Sanders is [...] Plan: repeat scan next week as scheduled Melodie Hernandez APRN.DEPLOYMENT SPECIALIST Mikey Torres MD 08/30/2024 4:36 PM Signed Viable ratliff IUP Size equal Date. Plan: patient to follow up with her ob for care. Stacy Banuelos MD Referring Provider: MELODIE HERNANDEZ [[id number]] Allergies As of Date: 08/28/2024 (Not on File) Date Reviewed: 08/20/2024 Reviewed by: Melodie Hernandez APRN.DEPLOYMENT SPECIALIST - Fully Assessed Visit Diagnosis: 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) [O09.811] Order(s):[facility]OUND [facility] [[id number]] Order #: [id number]. #:[id number]: 1 Prescriptions as of 08/30/2024 - buPROPion [...] (None) Encounter Status:Closed by MIKEY HENLEY on 08/30/24[facility] level ultrasoundon 08-28-2024 Indication Viability Impression - Single, live, intrauterine . - An intrauterine gestational sac with a yolk sac and embryo is present. - [place] rump length measurement is consistent with the [...] Arelis Chavez RDMS Read By: Mikey Torres M.D.MATERNAL MEDICINETrinity Health System Radiology Study observation (narrative)Trinity Health SystemCNPNon 37-48-9925YQEU Telephone (REIBD) JAZ SANDERS ([id number]) 1995 F Date Time Provider Department 08/24/24 MELODIE HERNANDEZ During your visit today, we recorded the following information about you: Manisha Ding 08/24/2024 11:52 AM Signed Pt would like a call back Arminda Ward RN 08/24/2024 1:58 PM Signed See 08/23/24 TE Arminda Ward RN August 24, 2024 1:58 PM Allergies As of Date: 08/24/2024 (Not on File) Date Reviewed: 08/20/2024 Reviewed by: Melodie Hernandez, MELY.DEPLOYMENT SPECIALIST - Fully Assessed Reason for Visit: Patient Question [8857] Prescriptions as of 08/24/2024 - buPROPion SR [...] Of Date: 08/24/2024 (None) Encounter Status:Closed by ARMINDA WARD on 08/24/24[facility] 41-83-0421ZQEUKgembqwii (REIBD) JAZ SANDERS ([id number]) 1995 F Date Time Provider Department 08/23/24 MELODIE HERNANDEZ During your visit today, we recorded the following information about you: Angella Mccarthy 08/23/2024 10:39 AM Signed Name: Jaz Maria Eugenia called today. : 1995 (home) [phone] (cell) Reason for call: pt called today informing the nurse she has been experiencing pain of level 4 from 1-10. Pt has been experiencing pain for 2 day. 5 weeks today. The patients preferred pharmacy has been captured for this encounter? Angella Morillo Early Morning Melodie Hernandez APRN.CNP 08/24/2024 5:58 PM Signed spoke with Jaz, [...] schedule the patient for the following- Location: [facility] Provider: nurse Visit type: scan Reason for visit/appointment notes: scan Date: 08/28 Time (requested): 1110 If slot is full, please schedule the closest open slot. Call to patient needed: no Morillo Early Morning, Lana 08/25/2024 8:37 AM Signed Pt is scheduled on 09/03/2024. Melodie Hernandez APRN.CNP 08/27/2024 11:51 AM Signed Addended by: MELODIE HERNANDEZ on: 08/27/2024 11:51 AM Modules accepted: Orders Allergies As of Date: 08/23/2024 (Not on File) Date Reviewed: 08/20/2024 Reviewed by: Melodie Hernandez APRN.CNP - Fully Assessed Reason for Visit: Pain [78] Primary Visit Diagnosis:Early stage of (HCC) [Z34.90] Order(s):[facility]OUND [facility] [[id number]] Order #: [id number]: 1 FUTURE Prescriptions as of 08/27/2024 - [...] Of Date: 08/23/2024 (None) Encounter Status:Closed by MELODIE HERNANDEZ on 08/24/24[facility] Summaryon 33-95-1290Etzegq SummaryMLBase 64 CcxntvpbUXv0uHf+PGhlYWQ+JQ3JLWXzC33zfKQauR7oD9RCIKmWOrorWGYFFXsFSwVfkvCyUN4sqCRv ZXJu [file] b2x (more content not included)...NormalGlenbeigh Hospital HospitalCoding Summaryon 84-83-6536Bgglil SummaryHTMLBase 64 SafwczavNRk0nGk+PGhlYWQ+WO0QFXHkY81rrQQrfZ0nW5QEBGfRGdccIINZYBdZAnJxrdCiQA0rmVKq ZXJu [file] b2x (more content not included)...NormalGlenbeigh Hospital HospitalCoding SummaryHTMLBase 64 HwybccsmGKd5mFo+PGhlYWQ+DD5EKONoU51suGJptG9dX2SRXAaZTeosIYGPQTdLPzKpehXdOJ7keLHb ZXJu [file] b2x (more content not included)...NormalGlenbeigh Hospital HospitalProvider Orderson 48-76-9406Saqaqzgn [id number]#1.00OTGTIFF McKitrick HospitalhCG Quantitativeon 84-65-8952zNE Ouvytipciilq680.7 mIU/mL High0.0-0.6Magrselect medical ohiohealth rehabilitation hospital HospitalComment on above:Result Comment: Post-Menopausal Reference Range is: 0.1-11.6 mIU/mLPerformed By: #### [id number] #### [facility] (DEFAULT) [address] [place] [address] 45913LBITwv 71-16-6463TNTSRmohpwnar (REIBD) JAZ SANDERS ([id number]) 1995 F Date Time Provider Department 08/16/24 MELODIE HERNANDEZ During your visit today, we recorded the following information about you: Angella Mccarthy 08/16/2024 12:31 PM Signed Name: Jaz Sanders called today. : 1995 (home) [phone] (cell) Reason for call: pt called that she got positive test, she has been having having cramping since last night , it happens every hours for couple minutes. The patients preferred pharmacy has been captured for this encounter? yes Angella Morillo Early Morning Daniel Hanna APRN.CNP 08/16/2024 5:28 PM Signed Called patient back to phone number listed in Epic-no answer. Lm for patient to look out for [employer] message. Daniel Hanna APRN.CNP August 16, 2024 5:15 PM Allergies As of Date: 08/16/2024 (Not on File) Date Reviewed: 05/09/2024 Reviewed by: Melodie Hernandez APRN.CNP - Fully Assessed Reason for [...] Text Encounter Status:Closed by DANIEL HANNA on 08/16/24[facility]burgXavier 01-05-1486WWTJVrdhwyraz (REIBD) JAZ SANDERS ([id number]) 1995 F Date Time Provider Department 08/15/24 MELODIE HERNANDEZ During your visit today, we recorded the following information about you: Manisha Ding 08/15/2024 2:10 PM Signed Pt is preg and wants to know if she can take benadryl due to her having hives Arminda Ward RN 08/23/2024 8:21 AM Signed See 08/20/24 visit with TY Vega RN August 23, 2024 8:21 AM Allergies As of Date: 08/15/2024 (Not on File) Date Reviewed: 05/09/2024 Reviewed by: Melodie Hernandez, CONTRACT COORDINATOR.DEPLOYMENT SPECIALIST - Fully Assessed Reason for Visit: Patient [...] Of Date: 08/15/2024 (None) Encounter Status:Closed by MELODIE HERNANDEZ on 08/15/24[facility]burgProvider Orderson 23-96-7534Rbnpumnc Orders [id number]#1.00OTGTIFFNoRegional Medical CenterhCG Quantitativeon 51-62-6633vJI Cmlnzkylvkrf100.6 mIU/mLHigh0.0-0.6MRiverview Health InstituteComment on above:Result Comment: Post-Menopausal Reference Range is: 0.1-11.6 mIU/mLPerformed By: #### [id number] #### [facility] (DEFAULT) [address] [place] [address] 54000RFUGzx 54-05-6331GHBNCtsnawcmb (REIBD) JAZ SANDERS ([id number]) 1995 F Date Time Provider Department 08/13/24 MELODIE HERNANDEZ REIBAri During your visit today, we recorded the following information about you: Arminda Ward RN 08/13/2024 11:19 AM Signed Letters sent. sent to patient Arminda Ward RN August 13, 2024 11:19 AM Allergies As of Date: 08/13/2024 (Not on File) Date Reviewed: 05/09/2024 Reviewed by: Melodie Hernandez, CONTRACT COORDINATOR.DEPLOYMENT SPECIALIST - Fully Assessed Reason for Visit: Wants hcg levels sent to [facility] / lives far away [Other] Prescriptions [...] Letter Text Letter Text Encounter Status:Closed by ARMINDA WARD on 08/13/24[facility]burgProvider Orderson 73-69-0505Fbyddbxg Orders [id number]#1.00OTMount St. Mary HospitalhCG Quantitativeon 28-76-4872zVP Watbaruxmytm18.6 mIU/mLHigh0.0-0.6MRiverview Health Institute Comment on above:Result Comment: Post-Menopausal Reference Range is: 0.1-11.6 mIU/mLPerformed By: #### [id number] #### [facility] (DEFAULT) [address] [place] [address] [id number] 69-65-9753ECTZVvdndk Visit (REIBD) JAZ SANDERS ([id number]) 1995 F Date Time Provider Department 07/31/24 3:00 PM MELODIE HERNANDEZ During your visit today, we recorded the following information about you: Last Period 07/19/24 Mustapha Tello MA 07/31/2024 3:12 PM Addendum Patient verified by full name and date of . Jaz Sanders is here today for an IUI. LMP: 07/19/2024 Natural cycle IUI Timed With: Ovulation Predictor Kit , Date: 07/30/2024 Inside Sales Specialist offered: Patient declines Mustapha Tello MA July 31, 2024 3:12 PM Dominguez Barry 09/05/2024 10:45 PM Signed IUI specimen released to provider Dominguez Barry July 31, 2024 3:24 PM Dominguez Barry 09/05/2024 10:45 PM Signed IUI Cryobio Donor # [id number] Pre: frozen washed specimen Post: 82 M/ml, 67% Insem # 27.5 million Melodie Hernandez APRN.CNP 09/05/2024 10:45 PM Signed WHI JAMEL IUI PROCEDURE NOTE Date: 07/31/2024 Primary Proceduralist: Melodie Hernandez APRN.CNP Consents and Labels Consent Signed: Informed Consent obtained and on the chart Labels Verified With Patient: Yes Indications: Jaz Sanders, is a 29 year old female here today for intrauterine insemination. IUI # 3. Cycle Day: Last menstrual period: 07/19/2024 Mason Protocol: UNIVERSAL PROTOCOL / SAFETY CHECKLIST Procedure [...] no menses and call with results. SIGNATURE: Melodie Hernandez APRN.CNP PATIENT NAME: Jaz Sanders DATE: September 05, 2024 TIME: 10:45 PM Referring Provider: SELF [[id number]] Allergies As of Date: 07/31/2024 (Not on File) Date Reviewed: 05/09/2024 Reviewed by: Melodie Hernandez APRN.CNP - Fully Assessed Reason for [...] Of Date: 07/31/2024 (None) Encounter Status:Closed by MELODIE HERNANDEZ on 09/05/24[facility] Visit (ANDRBE) JAZ SANDERS ([id number]) 1995 F Date Time Provider Department 07/31/24 2:30 PM ANDROLOGY BUILDING GUARD DEPUTY SHERIFF [facility] During your visit today, we recorded the following information about you: Dominguez Barry 07/31/2024 3:26 PM Signed Thaw for IUI. Dominguez Barry Referring Provider: SELF [[id number]] Allergies As of Date: 07/31/2024 (Not on File) Date Reviewed: 05/09/2024 Reviewed by: Melodie Hernandez, CONTRACT COORDINATOR.DEPLOYMENT SPECIALIST - Fully Assessed Primary Visit Diagnosis:Procreative management [...] (None) Encounter Status:Closed by DOMINGUEZ BARRY on 07/31/24[facility]burgCNPNon 27-04-1844OFRLEgnhftfzk (REIBD) JAZ SANDERS ([id number]) 1995 F Date Time Provider Department 07/30/24 MELODIE HERNANDEZ During your visit today, we recorded the following information about you: Sathyamanisha Manisha 07/30/2024 3:16 PM Signed N- ivf Pt has questions regarding IUI Melodie Hernandez APRN.CNP 07/30/2024 6:00 PM Signed patient's OPK today was dark but not positive Plan: test again tomorrow. if darker, schedule IUI on Tuesday if neurodiagnostic tech than today, schedule IUI the same day Melodie Hernandez APRN.CNP July 30, 2024 6:00 PM Allergies As of Date: 07/30/2024 (Not on File) Date Reviewed: 05/09/2024 Reviewed by: Melodie Hernandez APRN.CNP - Fully Assessed Reason for Visit: Patient Question [7807] Prescriptions as of 07/30/2024 - naltrexone 50 [...] Of Date: 07/30/2024 (None) Encounter Status:Closed by DAVIDMELODIE on 07/30/24[facility]burgLety 99-24-0471CCVCTkzowb Visit (REIBD) JAZ SANDERS ([id number]) 1995 F Date Time Provider Department 07/07/24 [...] Cycle Day: 14 Last menstrual period: 06/24/2024 Mason Protocol: UNIVERSAL PROTOCOL / SAFETY CHECKLIST Procedure [...] Gonzalez 07/19/2024 7:50 AM Signed IUI Cryobio #[id number] Washed frozen specimen Post: 31 m/ml, 77% Insem#: 10.8 million Referring Provider: DANIEL HANNA [[id number]] Allergies As of Date: 07/07/2024 (Not on File) Date Reviewed: 05/09/2024 Reviewed by: Melodie Hernandez APRN.DEPLOYMENT SPECIALIST - Fully Assessed Primary Visit Diagnosis:Encounter for [...] (None) Encounter Status:Closed by MIKEY HENLEY on 07/19/24[facility] Visit (ANDRBE) JAZ SANDERS ([id number]) 1995 F Date Time Provider Department 07/07/24 9:30 AM [facility]ROLOGY BUILDING [facility] During your visit today, we recorded the following information about you: Nichelle Gonzalez 07/07/2024 9:41 AM Signed Thaw for IUI Nichelle Gonzalez Referring Provider: DANIEL HANNA [[id number]] Allergies As of Date: 07/07/2024 (Not on File) Date Reviewed: 05/09/2024 Reviewed by: Melodie Hernandez APRN.DEPLOYMENT SPECIALIST - Fully Assessed Primary Visit Diagnosis:Procreative management [...] (None) Encounter Status:Closed by NICHELLE GONZALEZ on 07/07/24NoSt. Rita's HospitalSabra 75-86-8692CHFVOqsjxwrer (REIBD) JAZ SANDERS ([id number]) 1995 F Date Time Provider Department 07/06/24 MELODIE HERNANDEZ During your visit today, we recorded [...] on File) Date Reviewed: 05/09/2024 Reviewed by: Melodie Hernandez APRN.DEPLOYMENT SPECIALIST - Fully Assessed Reason for Visit: Patient [...] (None) Encounter Status:Closed by BECKI ISAACS on 07/06/24[facility] Hospitalmanisha 57-44-1924GOQPBetumjnev (REIBD) JAZ SANDERS ([id number]) 1995 F Date Time Provider Department 07/05/24 IGNACIO GUY During your visit today, we recorded the following information about you: Sivan Roberto 07/05/2024 3:03 PM Signed On day 11 now, inquiring about if okay to proceed with iui with cervical polyp. Patient believes it will be tomorrow or Tuesday for iui- inquiring if polyp needs to be removed first. Arminda Ward RN 07/06/2024 11:18 AM Signed See other TE for 07/04 Arminda Ward RN July 06, 2024 11:17 AM Allergies As of Date: 07/05/2024 (Not on File) Date Reviewed: 05/09/2024 Reviewed by: Melodie Hernandez APRN.DEPLOYMENT SPECIALIST - Fully Assessed Reason for Visit: re [...] Of Date: 07/05/2024 (None) Encounter Status:Closed by ARMINDA WARD on 07/06/24NoDayton Osteopathic Hospitalmanisha 04-17-7006LNOLTewurahvm (REIBD) JAZ SANDERS ([id number]) 1995 F Date Time Provider Department 07/04/24 MELODIE HERNANDEZ During your visit today, we recorded the following information about you: Melodie Hernandez APRN.CNP 07/04/2024 7:30 PM Signed Spoke [...] predicted to ovulate on Tuesday or Tuesday. Melodie Hernandez APRN.CNP July 04, 2024 7:30 PM Melodie Hernandez APRN.CNP 07/06/2024 4:59 PM Signed Ignacio Guy MD to Jamel Skylar [place] 07/05/24 9:05 AM Cervicalpolyp does not need to be removed. She will need [facility]gasasound guidance for her next IUI. Dr. Duran notified - she is scheduled for IUI tomorrow. Dr. Duran will arrange Melodie Hernandez APRN.CNP July 06, 2024 4:59 PM Allergies As of Date: 07/04/2024 (Not on File) Date Reviewed: 05/09/2024 Reviewed by: Melodie Hernandez APRN.CNP - Fully Assessed Reason for [...] Of Date: 07/04/2024 (None) Encounter Status:Closed by MELODIE HERNANDEZ on 07/04/24[facility] 07-04-2024 Indication infertility testing Impression Normal [...] Elena Aceves RDMS Read By: Ignacio Guy M.D.MATERNAL MEDICINETrinity Health SystemRadiology Study observation (narrative)Trinity Health SystemCNPNon 79-34-6510LTZQGrqnwmgtd (REIBD) SANDERSJAZ ANDERSON ([id number]) 1995 F Date Time Provider Department 06/29/24 MELODIE HERNANDEZ During your visit today, we recorded the following information about you: Kassidy Meyer 06/29/2024 8:53 AM Signed Pt had iui 06/09, pt isnt . Please follow up Cd1 06/23 . Pt had hematoma after iui Patricia Snow 07/02/2024 9:18 AM Signed Pt wants to know if she has to have us before iui this weekend Melodie Hernandez APRN.[facility] 07/03/2024 12:34 PM Signed unable to reach, left message to return my call Melodie Hernandez APRN.DEPLOYMENT SPECIALIST July 03, 2024 12:33 PM Patricia Snow 08/13/2024 8:52 AM Signed Pos preg test Arminda Ward RN 08/13/2024 9:17 AM Signed See TE encounter dated 08/13 Arminda Ward RN August 13, 2024 9:16 AM Allergies As of Date: 06/29/2024 (Not on File) Date Reviewed: 05/09/2024 Reviewed by: Melodie Hernandez APRN.DEPLOYMENT SPECIALIST - Fully Assessed Reason for Visit: 06/09 [...] Of Date: 06/29/2024 (None) Encounter Status:Closed by ARMINDA WARD on 08/13/24[facility] 94-81-3567FGUABmqsyi Visit (REIBD) MARIA EUGENIABRYANJAZ ([id number]) 1995 F Date Time Provider Department 06/09/24 11:00 AM IGNACIO GUY During your visit today, we recorded the following information about you: Nichelle Gonzalez 06/09/2024 12:30 PM Signed IUI specimen released to provider Nichelle Gonzalez June 09, 2024 11:24 AM Nichelle Gonzalez 06/09/2024 12:30 PM Signed IUI Cryobio #: [id number] Washed frozen sample Post: 42 m/ml, 74% [...] Cycle Day: 13 Last menstrual period: 05/28/2024 Mason Protocol: UNIVERSAL PROTOCOL / SAFETY CHECKLIST Procedure [...] was discussed with the patient or authorized telemarketing sales representative. The patient or authorized telemarketing sales representative has agreed to proceed with the sensitive examination. 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 Vidhi Sheldon MD IUI IUI Date: [...] stopped. Will get pelivc scan here at [facility] if not with this IUI prior pt proceeding with another attmept at IUI. Ignacio Guy MD June 09, 2024 12:30 PM SIGNATURE: Vidhi Sheldon MD PATIENT NAME: Jaz Sanders DATE: June 09, 2024 TIME: 12:01 PM Referring Provider: DANIEL HANNA [[id number]] Allergies As of Date: 06/09/2024 (Not on File) Date Reviewed: 05/09/2024 Reviewed by: Melodie Hernandez APRN.DEPLOYMENT SPECIALIST - Fully Assessed Primary Visit Diagnosis:Female infertility [...] (None) Encounter Status:Closed by IGNACIO GUY on 06/09/24[facility] Visit (ANDRBE) JAZ SANDERS ([id number]) 1995 F Date Time Provider Department 06/09/24 10:30 AM ANDROLOGY BUILDING GUARD [facility]PUTY [facility] During your visit today, we recorded the following information about you: Nichelle Gonzalez 06/09/2024 11:48 AM Signed Thaw for IUI Nichelle Gonzalez Referring Provider: DANIEL HANNA [[id number]] Allergies As of Date: 06/09/2024 (Not on File) Date Reviewed: 05/09/2024 Reviewed by: Melodie Hernandez APRN.DEPLOYMENT SPECIALIST - Fully Assessed Primary Visit Diagnosis:Procreative management [...] (None) Encounter Status:Closed by NICHELLE GONZALEZ on 06/09/24[facility] Summaryon 17-35-9439Dmyezh SummaryCACHE VALLEY HOSPITALBase 64 EiwfcrraLJh3nGb+PGhlYWQ+JS5OUHZkV39paUChyJ3sM7QAIZhYOugdHVTYDIzLBcLmqpEjIA3ncOGg ZXJu [file] b2x (more content not included)...McKitrick HospitalProgesterone LCon 41-86-6937Djjmfoefgqql LC7.6 ng/mLInvalid Interpretation [facility] Comment on above:Result Comment: Follicular phase 0.1 - 0.9 Luteal phase 1.8 - 23.9 Ovulation phase 0.1 - 12.0 First trimester 11.0 - 44.3 Second trimester 25.4 - 83.3 Third trimester 58.7 - 214.0 Postmenopausal 0.0 - 0.1 Performed At: [facility] [address] [place] [address] [id number] J Luis Gray PhD Ph:[phone] By: #### [id number] ####[facility] (ON LICENSE OF [facility])[address] [place], [place] [address]Jvjvszbp Ord[place] 28-00-5521Pjcnorhy [id number]#1.00OTTogus VA Medical CenterPhysical Therapy Noteon 12-94-0066Vhkjbcqy Therapy Note [id number]#1.00OT[facility] 25([place])D3 [facility] 131232-ojgwrdkimcsips D3 [Mass/Vol]28.8 ng/mLLow 31.0-80.0Av HospitalComment on above:Order Comment: Specimen Type: BLOOD SPECIMEN Ordering Facility: [facility] Address: [address] [place], [place] [address]Result Comment: Classification of 25 [place] Vitamin D status: Deficiency/Insufficiency: < or = 30 ng/ml. Sufficiency/Optimal Levels: 31-80 ng/mL Toxicity: > 100 ng/mL. Test performed by chemiluminescent immunoassay.Performed By: #### 41630-3 #### [facility] CLIA [id number] [address] [place] [address] [place]. trachomatis+N. gonorrhoeae DNA AC+probe Ql (Unsp spec)on 04-02-2024. trachomatis rRNA AC+probe Ql (Unsp spec)Not detectedNormalNot detectedAv HospitalComment on above:Order Comment: Specimen Type: BLOOD SPECIMEN Ordering Facility: [facility] Address: [address] [place], [place] [address]Performed By: #### 24964-9 #### [facility] CLIA [id number] [address] [place] [address] [place]. gonorrhoeae rRNA AC+probe Ql (Unsp spec)Not detectedNormalNot detectedAv HospitalComment on above:Order Comment: Specimen Type: BLOOD SPECIMEN Ordering Facility: [facility] Address: [address] [place], [place] [address]Performed By: #### 70778-0 #### [facility] CLIA [id number] [address] [place] [address] [place] AMERICACARRIER SCREEN, EXPANDEDon 10-73-2651DETICNG SCREEN RESULTSView results in Scanned Documents link when available.NormalAv HospitalComment on above:Order Comment: Specimen Type: BLOOD SPECIMEN Ordering Facility: [facility] Address: [address] [place], [place] [address]Performed By: #### 35225-3 #### [facility] CLIA [id number] [address] [place] [address] [place] AMERICACMV IgG Qnon 82-54-9538XFS IGG QUALNegativeNormalNegativeAv HospitalComment on above:Order Comment: Specimen Type: BLOOD SPECIMEN Ordering Facility: [facility] Address: [address] [place], [place] [address]Result Comment: No serological evidence of past exposure to Cytomegalovirus. Cannot exclude recent infection if the specimen collected within 4-6 weeks after infection.Performed By: #### 1989-3, RIO, 7852-7, 7853-5, VZVG2 #### [facility] CLIA [id number] [address] [place] [address] [place] AMERICACMV IgG SerPl-aCncon 05-61-0401RKE IgG Qn<0.20NormalAvon HospitalComment on above:Order Comment: Specimen Type: BLOOD SPECIMEN Ordering Facility: [facility] Address: [address] [place], [place] [address]Result Comment: The magnitude of the measured result is not indicative of the amount of antibody present. U/mL values are interpreted as follows: Negative <0.6 Equivocal 0.6 to <0.70 Positive >=0.70Performed By: #### 1989-3, RIO, 7852-7, 7853-5, VZVG2 #### [facility] CLIA [id number] [address] [place] [address] [place] AMERICACMV IgM Qnon 43-34-0982LFC IGM, QUALNegativeNormalNegativeAvon HospitalComment on above:Order Comment: Specimen Type: BLOOD SPECIMEN Ordering Facility: [facility] Address: [address] [place], [place] [address]Result Comment: No serological evidence of recent exposure to Cytomegalovirus.Performed By: #### 1989-3, RUBIGG, 7852-7, 7853-5, VZVG2 #### [facility] CLIA [id number] [address] [place] [address] [place] AMERICAHBV core Ab Ser Qlon 75-28-1437PNT core Ab Ql (S)NegativeNormalNegativeAvon HospitalComment on above: Order Comment: Specimen Type: BLOOD SPECIMEN Ordering Facility: [facility] Address: [address] [place], [place] [address]Result Comment: No evidence of current or past infection with Hepatitis B virus. Should recent infection be suspected, repeat testing may be considered 3-4 weeks after this draw.Performed By: #### 09266-9, 5195-3, 85040-8, 40111-8 #### [facility] CLIA [id number] [address] [place] [address] [place] AMERICAHBV surface Ag Ser Qlon 69-27-6564VCT surface Ag Ql (S)NegativeNormalNegativeAvon HospitalComment on above:Order Comment: Specimen Type: BLOOD SPECIMEN Ordering Facility: [facility] Address: [address] [place], [place] [address]Performed By: #### 07447-5, 5195-3, 73117-2, 49391-2 #### [facility] CLIA [id number] [address] [place] [address] [place] AMERICAHCV Ab Ser Qlon 04-02-2024 HCV Ab Ql (S)NegativeNormalNegativeAvon HospitalComment on above:Order Comment: Specimen Type: BLOOD SPECIMEN Ordering Facility: [facility] Address: [address] [place], [place] [address]Result Comment: The result suggests no evidence of active infection with Hepatitis C virus. Should recent infection be suspected, repeat testing may be considered 4-6 weeks after this draw. Performed By: #### 08402-3 #### [facility] CLIA [id number] [address] [place] [address] [place] AMERICAHIV 1+2 Ab IA Qlon 63-86-5372GOQ 1 and 2 Ab IA.rapid Nom (S/P/Bld)NormalAmerican Fork HospitalComment on above:Order Comment: Specimen Type: BLOOD SPECIMEN Ordering Facility: [facility] Address: [address] [place], [place] [address]Result Comment: Test not indicated. Performed By: #### 86647-1, 5195-3, 98055-4, 11096-9 #### [facility] CLIA [id number] [address] [place] [address] [place] AMERICAHIV 1+2 Ab+HIV1 p24 Ag IA Ql Non-ReactiveNormalNonreTooele Valley HospitalComment on above:Order Comment: Specimen Type: BLOOD SPECIMEN Ordering Facility: [facility] Address: [address] [place], [place] [address]Performed By: #### 22999-8, 5195-3, 19235-7, 39633-6 #### [facility] CLIA [id number] [address] [place] [address] [place] AMERICAHIV immunoassay testing algorithm interpretation (S/P/Bld) [Interp][facility] HebronComment on above: Order Comment: Specimen Type: BLOOD SPECIMEN Ordering Facility: [facility] Address: [address] [place], [place] [address]Result Comment: No evidence of HIV- 1 or HIV-2 infection. Should recent infection be suspected, repeat testing may be considered 2-3 weeks after this draw. [place]clain Rev. Code 3701.243(E): This information has been [...] the release of HIV test results or diagnoses.Performed By: #### 98953-8, 5195-3, 11531-6, 58627-8 #### [facility] CLIA [id number] [address] [place] [address] [place] HBYWLTAZdG8o (Bld)on 04-02-2024 Average glucose Estimated from glycated hemoglobin (Bld) [Mass/Vol]85 mg/dL NormalAv HospitalComment on above:Order Comment: Specimen Type: BLOOD SPECIMEN Ordering Facility: [facility] Address: [address] [place], [place] [address]Result Comment: eAG: (Estimated average glucose) is a calculated value from HgbA1c and is telemarketing sales representative of the average blood glucose level in the last 2-3 month period.Performed By: #### 70656-2 #### [facility] CLIA [id number] [address] [place] [address] [place] EOIGHHMGiP8l (Bld) [Mass fraction] 4.6 %Normal4.3-5.6Avon HospitalComment on above:Order Comment: Specimen Type: BLOOD SPECIMEN Ordering Facility: [facility] Address: [address] [place], [place] [address]Result Comment: [place] [employer] guidelines indicate that patients with HgbA1c in the range 5.7-6.4% are at increased risk for development of diabetes, and intervention by lifestyle modification may be beneficial. HgbA1c greater or equal to 6.5% is considered diagnostic of diabetes.Performed By: #### 23763-7 #### [facility] CLIA [id number] [address] [place] [address] [place] AMERICARUBELLA IGG ANTIBODYon 74-43-0043YUMLKPZ IGG AB, QUALPositiveNormalPositiveAv HospitalComment on above:Order Comment: Specimen Type: BLOOD SPECIMEN Ordering Facility: [facility] Address: [address] [place], [place] [address]Result Comment: The result suggests recent or past exposure to Rubella virus or history of Rubella vaccination. Positive result may also be seen due to presence of passively-transferred antibodies. Please correlate with patient's history.Performed By: #### 1989-3, RUBIGG, 7852-7, 7853-5, VZVG2 #### [facility] CLIA [id number] [address] [place] [address] [place] AMERICAReagin and Treponema pallidum IgG and IgM [Interp]on 04-02-2024T. pallidum IgG+IgM IA Ql (S) Non-ReactiveNormalNonreactiveSykesville HospitalComment on above:Order Comment: Specimen Type: BLOOD SPECIMEN Ordering Facility: [facility] Address: [address] [place], [place] [address]Performed By: #### 35916-7, 5195-3, 80546-9, 68445-8 #### [facility] CLIA [id number] [address] [place] [address] [place] AMERICAReagin+T pallidum IgG+IgM SerPl-Impon 99-71-7101Vdrinv and Treponema pallidum IgG and IgM [Interp]Cannot exclude recent Treponemal infection if specimen collected within 7-10 days after appearance of suspect lesions or 2-3 weeks after an exposure. Clinical correlation is required.NormalSykesville HospitalComment on above:Order Comment: Specimen Type: BLOOD SPECIMEN Ordering Facility: [facility] Address: [address] [place], [place] [address]Performed By: #### 96201-4, 5195-3, 55714-1, 81536-2 #### [facility] CLIA [id number] [address] [place] [address] [place] AMERICATYPE + SCREEN PRENATALon 10-38-9296JNEILnznafJkuk HospitalComment on above:Order Comment: Specimen Type: BLOOD SPECIMEN Ordering Facility: [facility] Address: [address] [place], [place] [address]Performed By: #### TSPN #### [facility] CLIA [id number] [facility] [place] [address] [facility]ITALRh Nom (Bld)[facility] Comment on above:Order Comment: Specimen Type: BLOOD SPECIMEN Ordering Facility: [facility] Address: [address] [place], [place] [address]Performed By: #### TSPN #### [facility] [place] [id number] [address] [place] [address] [place] [facility] HOSPITALTYPE AND SCREEN QKRCYOBRLX19/19/2024 23:[address] [place], [place] [address]Comment on above:Order Comment: Specimen Type: BLOOD SPECIMEN Ordering Facility: [facility] Address: [address] [place], [place] [address]Performed By: #### TSPN #### [facility] IA [id number] [address] [place] [address] [facility] HOSPITALVARICELLA ZOSTER IGGon 04-02-2024 VARICELLA ZOSTER IGG, QUALPositiveNormalPositiveAmerican Fork HospitalComment on above: Order Comment: Specimen Type: BLOOD SPECIMEN Ordering Facility: [facility] Address: [address] [place], [place] [address]Result Comment: The result suggests recent or past exposure to Varicella-Zoster virus or chickenpoxvaccination or zoster vaccination. Positive result may also be seen due to presence of passively-transferred antibodies. Please correlate with patient's history. Performed By: #### 18160-1 #### [facility] CLIA [id number] [address] [place] [id number] STATES OF AMERICACoding Summaryon 03-20-2024 Coding SummaryHTMLBase 64 XwenupufSQh9mUt+PGhlYWQ+FW2JCLZdJ89vaKZfsC2sU3LRPRfCUcukOIJXVBnPEsCofoLfZU9ilUDq ZXJu [file] [facility] (more content not included)...[facility] HospitalProvider Orderson 43-22-4398Lnhxmpzq [id number]#1.00OTGTIFF [facility].Auto Diff 1on 42-37-3568Xnct Floyd %3 %Normal1-12[facility] HospitalComment on above:Performed By: #### [id number], 8677497, 0347954 #### [facility] (DEFAULT) [address] [place] [address] 58202Uyso Abs#0.0 b03Ppyxou9.0-0.2[facility] HospitalComment on above:Performed By: #### [id number], 2063551, 6906994 #### [facility] (DEFAULT) [address] [place] [address] 71665Tixjbzpuv/100 WBC (Bld)0.3 %Normal0.2-2.0[facility] Hospital Comment on above:Performed By: #### [id number], 6270087, 8962327 #### [facility] (DEFAULT) [address] [place] [address] 58576Jqu Abs#0.0 e05Helfrs7.0-0.4[facility] HospitalComment on above:Performed By: #### [id number], 8340072, 1533720 #### [facility] (DEFAULT) [address] [place] [address] 90541Karbpelvman/100 WBC (Bld)0.1 %Low0.9-4.0[facility] Hospital Comment on above:Performed By: #### [id number], 0085963, 0211157 #### [facility] (DEFAULT) [address] [place] [address] 67830Hmqry Abs#1.5 q58Haueot5.3-2.9[facility] HospitalComment on above:Performed By: #### [id number], 7350003, 7939617 #### [facility] (DEFAULT) [address] [place] [address] 89922Ouezgrotvwy/100 WBC (Bld)16 %Suxzxj84-44Tmcaytgy Hospital Comment on above:Performed By: #### [id number], 8370022, 2620831 #### [facility] (DEFAULT) [address] [place] [address] 19998Zlnl Abs#0.3 c01Zehbaq8.0-0.8[facility] HospitalComment on above:Performed By: #### [id number], 8129567, 4219714 #### [facility] (DEFAULT) [address] [place] [address] 30416Nwpb Abs#7.8 q65Yiqqvk8.5-9.2[facility] HospitalComment on above:Performed By: #### 52232740, 3662944, 2734796 #### [facility] (DEFAULT) [address] [place] [address] 12274Dhthncwbnbo/100 WBC (Bld)81 %Gbbkwl22-50Wcgborko Hospital Comment on above:Performed By: #### 15937716, 5000577, 2933557 #### [facility] (DEFAULT) [address] [place] [address] 93417MEK w/ Auto Diffon 91-99-6128Ezewcjwfdtn distribution width (RBC) [Ratio]13.9 %Gprdsl38.5-15.0[facility] HospitalComment on above: Performed By: #### 86123211, 3462163, 8013534 #### [facility] (DEFAULT) [address] [place] [address] 60652Ffgpifckoj (Bld) [Volume fraction]45.3 %High33.7-40.4 [facility], AvonComment on above:Performed By: #### 13221745, 0397503, 7842966 #### [facility] (DEFAULT) [address] [place] [address] 52046Nzidadqvjy (Bld) [Mass/Vol]15.5 g/iEGxjnrq60.3-15.9 [facility] HospitalComment on above:Performed By: #### 14384766, 9570502, 6110204 #### [facility] (DEFAULT) [address] [place] [address] 07122Bww Diff?AutoInvalid Interpretation CodeSelect [facility] Comment on above:Performed By: #### [id number], 3739708, 4596536 #### [facility] (DEFAULT) [address] [place] [address] 96972ITE (RBC) [Entitic mass]29 ejBykvlr12-42Qpgfhinm Hospital Comment on above:Performed By: #### 06668343, 4954144, 2568906 #### [facility] (DEFAULT) [address] [place] [address] 66003BTDS (RBC) [Mass/Vol]34 g/fYDmtxcv05-70Osbtrxmr Hospital Comment on above:Performed By: #### [id number], 2507444, 7653567 #### [facility] (DEFAULT) [address] [place] [address] 81429ZYX (RBC) [Entitic vol]86 qNWhsmvj99-466[facility] Comment on above:Performed By: #### 89885867, 8356551, 1906373 #### [facility] (DEFAULT) [address] [place] [address] 56000Etycnqml289 u44Fnputa560-545Zmgdjvry HospitalComment on above:Performed By: #### [id number], 8102184, 0573693 #### [facility] (DEFAULT) [address] [place] [address] 38635Vgggeczr mean volume (Bld) [Entitic vol]6.8 fLNormal 6.3-10.2[facility] HospitalComment on above:Performed By: #### 43940136, 5942164, 1369489 #### [facility] (DEFAULT) [address] [place] [address] 43018KKH5.28 x42Dgktdj5.70-5.30[facility] HospitalComment on above:Performed By: #### [id number], 0886167, 9927545 #### [facility] (DEFAULT) [address] [place] [address] 27988KSV6.6 p83Ayudbo3.5-10.5[facility] HospitalComment on above: Performed By: #### [id number], 3455926, 2500627 #### [facility] (DEFAULT) [address] [place] [address] 87605Wohuwalyqe 77-02-1939Lxkvcorb [Mass/Vol]20.6 ng/mLNormal 12.0-150.0[facility] HospitalComment on above:Performed By: #### 80801673, 9554296, 0929767 #### [facility] (DEFAULT) [address] [place] [address] 67228Wyuz Levelon 34-66-8352Gyev [Mass/Vol]61.0 ug/dLNormal 28.0-170.0[facility] HospitalComment on above:Performed By: #### [id number] ####[facility] (DEFAULT)[address] [place] [address] [id number] [id number] ID: [id number] Author: IGNACIO GUY MD Service: ? Author [...] for three cycles. They will meet with SMOKING TOBACCO PACKER HAND to review the IUI checklist and sign consents. I spent a total of 45 minutes on the date of the service which included preparing to see the patient, ztds-ai-uzrg patient care, completing clinical documentation, counseling and educating the patient/family/caregiver, and ordering medications, tests, or procedures. Ignacio Guy MDWright-Patterson [facility] 48-51-3348NEDYPuhaws Visit (REIBD) JAZ SANDERS ([id number]) 1995 F Date Time Provider Department 02/28/24 [...] OB History Obstetric History No data available DIRECTOR PROPERTY HISTORY: Patient's last menstrual period was 02/18/2024. 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 They will meet with SMOKING TOBACCO PACKER HAND to review the IUI checklist and sign consents. I spent a total of 45 minutes on the date of the service which included preparing to see the patient, vfbj-nl-wpij patient care, com (more content not included)...NormalOhio[facility],APTIMA HPV,AGE GDLNon 02-28-2024 AGE GDLN ACOG TESTINGNote.NOMS HealthcareComment on above:TESTS RESULT FLAG UNITS REF RANGE LAB Clinician Provided Cytology Information Source.............Cervix;Endocervix No. of containers..01 ThinPrep Vial Age Algo ACOG Ezequiel... FLAG LEGEND: L-Low Normal,H-High Normal,LL-Alert Low,HH-Alert High <-Panic Low,>-Panic High,A-Abnormal,AA-Critical Abnormal Performed at: 01 =G [facility] [address] [place] [address] Dagmar Love MD, IGP, RFX APTIMA HPV ASCUNote.[facility] HealthcareComment on above:TESTS RESULT FLAG UNITS REF RANGE LAB DIAGNOSIS: 02 NEGATIVE FOR INTRAEPITHELIAL LESION OR MALIGNANCY. Specimen adequacy: 02 Satisfactory for evaluation. Endocervical and/or squamous metaplastic cells (endocervical component) are present. Performed by: 02 Edel Sewell, Mobile Service Rv Technician ([facility]) . 02 Note: Note 02 The [...] High,A-Abnormal,AA-Critical Abnormal Performed at: 02 WB [facility] [address] [place] [address] Dagmar Love MD, Performed at: =G - [facility] [id number] Building Construction Foreman: Dagmar Love MD, Phone: [phone] Performed at: - [facility] [id number] Building Construction Foreman: Dagmar Love MD, Phone: [phone] BRUSH-SPATULA CERVIX ENDOCERVIX [facility] SystemCoding Summaryon 56-90-2616Boccty SummaryMLBase 64 KbhjbbpsPMx6zVk+PGhlYWQ+HL2XJZFsN08ibIFcbA2dL3EGDOwKGyuhPHUWDEyVZdAvsvSrOV9brLUs ZXJu [file] [facility] (more content not included)...[facility] papilloma virus 16+18+31+33+35+39+45+51+52+56+58+59+66+68 DNA [Presence] in Addi 79-90-3681ZTR 16+18+31+33+35+39+45+51+52+56+58+59+66+68 DNA Probe+sig amp Ql (Cvx)Human papilloma virus 16+18+31+33+35+39+45+51+52+56+58+59+66+68 DNA [Presence] in Cer. [facility] HospitalComment on above:TESTS RESULT FLAG UNITS REF RANGE LAB DIAGNOSIS: 02 NEGATIVE FOR INTRAEPITHELIAL LESION OR MALIGNANCY.Specimen adequacy: 02 Satisfactory forevaluation. Endocervical and/or squamous metaplastic cells (endocervical component) are present.Performed by: 02 Edel Sewell, Mobile Service Rv Technician ([facility]). 02Note: Note 02 The Pap smear is [...] LEGEND: L-Low Normal,H-High Normal,LL-Alert Low,HH-Alert High <-Panic Low,>- Panic High,A-Abnormal,AA-Critical Abnormal Performed at:[address] [address] Dagmar Love MD, Dbpqqkggv at: =[facility] [id number] Director: Dagmar Love MD, Phone: [phone] at: [facility] [address] [id number] Director: Dagmar Love MD, Phone: [phone] Panel Informationon 46-56-3140Rtjazcrhv Lab Test Patient AgeNote.[facility] HospitalComment on above:TESTS RESULT FLAG UNITS REF RANGE LAB Clinician Provided Cytology Information Source.............Cervix;Endocervix No. of containers..01 ThinPrep VialAge Tayler SINHA Ezequiel... FLAG LEGEND: L-Low Normal,H-High Normal,LL-Alert Low,HH-Alert High <-Panic Low,>-Panic High,A- Abnormal,AA-Critical Abnormal Performed a t:01 =G [address] [address] Dagmar Love MD, .Auto Diff 1on 78-66-8306Jrgx Floyd %6 %Normal1-12 [facility], AvonComment on above:Performed By: #### [id number] #### [facility] (DEFAULT) [address] [place] [address] 58575Ybba Abs#0.0 k89Aiphtr7.0-0.2Magrselect medical [facility] hospital HospitalComment on above:Performed By: #### [id number] #### [facility] (DEFAULT) [address] [place] [address] 28259Gwjcnnqxm/100 WBC (Bld)0.3 %Normal0.2-2.0[facility] Hospital Comment on above:Performed By: #### [id number] #### [facility] (DEFAULT) [address] [place] [address] 50740Gfu Abs#0.2 i72Kvryun7.0-0.4[facility] HospitalComment on above:Performed By: #### [id number] #### [facility] (DEFAULT) [address] [place] [address] 66635Ngkyiqtfrsp/100 WBC (Bld)3.4 %Normal0.9-4.0Magrselect medical ohiohealth rehabilitation hospital HospitalComment on above:Performed By: #### [id number] #### [facility] (DEFAULT) [address] [place] [address] 29687Gmkby Abs#2.4 s83Xwpqet7.3-2.9[facility] HospitalComment on above:Performed By: #### [id number] #### [facility] (DEFAULT) [address] [place] [address] 34180Qmrsjoxkyav/100 WBC (Bld)34 %Ncbfjs19-95Dnsvpfvk Hospital Comment on above:Performed By: #### [id number] #### [facility] (DEFAULT) [address] [place] [address] 81861Jare Abs#0.4 l18Vxymmi0.0-0.8[facility] HospitalComment on above:Performed By: #### [id number] #### [facility] (DEFAULT) [address] [place] [address] 42588Cmuq Abs#4.0 a10Agsntr6.5-9.2[facility] HospitalComment on above:Performed By: #### [id number] #### [facility] (DEFAULT) [address] [place] [address] 47980Aclstixdahl/100 WBC (Bld)56 %Jfdtxp77-11Nenimorv Hospital Comment on above:Performed By: #### [id number] #### [facility] (DEFAULT) [address] [place] [address] 93658PEU w/ Auto Diffon 62-58-4213Pcdejxyplbf distribution width (RBC) [Ratio]14.0 %Ohujiv56.5-15.0[facility] HospitalComment on above: Performed By: #### [id number] #### [facility] (DEFAULT) [address] [place] [address] 25985Nezyqruovg (Bld) [Volume fraction]41.7 %High33.7-40.4 [facility] HospitalComment on above:Performed By: #### [id number] #### [facility] (DEFAULT) [address] [place] [address] 16049Grvqttftav (Bld) [Mass/Vol]14.1 g/xPQvwtlm38.3-15.9 [facility] HospitalComment on above:Performed By: #### [id number] #### [facility] (DEFAULT) [address] [place] [address] 47876Ine Diff?AutoInvalid Interpretation CodeSelect [facility] Comment on above:Performed By: #### [id number] #### [facility] (DEFAULT) [address] [place] [address] [id number] (RBC) [Entitic mass]29 [id number] Comment on above:Performed By: #### [id number] #### [facility] (DEFAULT) [address] [place] [address] [id number] (RBC) [Mass/Vol]34 g/tLPlekfa10-91[facility] Comment on above:Performed By: #### [id number] #### [facility] (DEFAULT) [address] [place] [address] [id number] (RBC) [Entitic vol]86 [id number] Comment on above:Performed By: #### [id number] #### [facility] (DEFAULT) [address] [place] [address] 87986Modiurph198 p46Iopdcq583-405Oyrbgiks HospitalComment on above:Performed By: #### [id number] #### [facility] (DEFAULT) [address] [place] [address] 53678Qrnkhslq mean volume (Bld) [Entitic vol]6.8 fLNormal 6.3-10.2[facility] HospitalComment on above:Performed By: #### [id number] #### [facility] (DEFAULT) [address] [place] [address] 13907GWU4.84 d21Atmcgb8.70-5.30[facility] HospitalComment on above:Performed By: #### [id number] #### [facility] (DEFAULT) [address] [place] [address] 60476OVK4.1 k13Dyscee0.5-10.5[facility] HospitalComment on above: Performed By: #### [id number] #### [facility] (DEFAULT) [address] [place] [address] 70116Jsafulfywl 63-93-9297Kfpvckrz [Mass/Vol]15.8 ng/mLNormal 12.0-150.0[facility] HospitalComment on above:Performed By: #### [id number], [id number], [id number] #### [facility] (DEFAULT) [address] [place] [address] 61827Fswn Profileon 42-96-7025Ntno [Mass/Vol]72.0 ug/dLNormal 28.0-170.0[facility] HospitalComment on above:Performed By: #### [id number], [id number], [id number] #### [facility] (DEFAULT) [address] [place] [address] 02275Agkp Sat19 %Dyw85-28Dnuswehk HospitalComment on above: Performed By: #### [id number], [id number], [id number] #### [facility] (DEFAULT) [address] [place] [address] 58722NYDA895 mcg/qKTecamg394-277Gpjdtmds HospitalComment on above:Performed By: #### [id number], [id number], [id number] #### [facility] (DEFAULT) [address] [place] [address] 51816Mvhbalcszek [Mass/Vol]274.6 mg/sRZfuvcx564.0-382.0[facility] HospitalComment on above:Performed By: #### [id number], [id number], [id number] #### [facility] (DEFAULT) [address] [place] [address] 64507Igetiv Summaryon 14-50-2897Bazqpb SummaryHTMLBase 64 WggeogpvSQh0eYa+PGhlYWQ+JG1ZCLSiE80wzHDilF6nS1XLYHvTWddxANFOWBcMXtHcczEoCD0fhHOw ZXJu [file] JSc (more content not included)...[facility]Kit[facility] HospitalAmphetamine Screen Ql (U)Ordered By: Andry Lacy on 44-41-0825Kqvgntctajmi Ql (U)Amphetamines screenNegativeDelaware County HospitalAmphetamines Ql (U)Negative NegativeDelaware County HospitalBarbiturates [Presence] in Urine by Screen methodOrdered By: Andry Lacy on 80-55-2694Njnofojvuiql Screen Ql (U) NegativeNegativeDelaware County HospitalBarbiturates Screen Ql (U) Barbiturates [Presence] in Urine by Screen methodNegSelect Medical [facility] Rehabilitation Hospital, BeachwoodBenzodiazepines Screen Ql (U)Ordered By: Andry Lacy on 68-30-1819Fnmjhwppmqgfclm Ql (U)PositiveHighNegSelect Medical [facility] Rehabilitation Hospital, BeachwoodBenzodiazepines Ql (U)Benzodiazepines [Presence] in Urine by Screen method HighNegSelect Medical [facility] Rehabilitation Hospital, BeachwoodBenzoylecgonine [Presence] in Urine by Screen methodOrdered By: Andry Lacy on 64-82-9264Tvkvymxlszqmtrx Screen Ql (U)NegativeNegSelect Medical [facility] Hospital, BeachwoodBenzoylecgonine Screen Ql (U)Benzoylecgonine [Presence] in Urine by Screen methodNegSelect Medical [facility] Hospital, BeachwoodCannabinoids [Presence] in Urine by Screen methodOrdered By: Andry Lacy on 77-53-8184Qbnfqphkydee Screen Ql (U)PositiveMercy Health St. Rita's Medical CenterComment on above:These are unconfirmed results and should not be used for legal purposes. Drug Cut-Off Concentration: AMPH 1000 ng/mL LUIS ANTONIO 200 ng/mL JOHN 200 ng/mL COCM 300 ng/mL OP 300 ng/mL PCP 25 ng/mL THC 20 ng/mLCannabinoids Screen Ql (U)Cannabinoids [Presence] in Urine by Screen methodHighNegSelect Medical [facility] Rehabilitation Hospital, BeachwoodComment on above:These are unconfirmed results and should not be used for legal purposes. Drug Cut-Off Concentration: AMPH 1000 ng/mL LUIS ANTONIO 200 ng/mL JOHN 200 ng/mL COCM 300 ng/mL OP 300 ng/mL PCP 25 ng/mL THC 20 ng/mLHCG ( test) IA.rapid Ql (U)Ordered By: Andry Lacy on 04-76-5520AHG ( test) Ql (U)NegativeDelaware County HospitalHCG ( test) Ql (U)Urine human chorionic gonadotropin (hCG) detection by immunoassayDelaware County Hospital Opiates [Presence] in Urine by Screen methodOrdered By: Andry Lacy on 82-25-7400Ccdqomg Screen Ql (U)NegativeNegativeDelaware County Hospital Opiates Screen Ql (U)Opiates [Presence] in Urine by Screen methodNegative [facility] HospitalPhencyclidine Screen Ql (U)Ordered By: Andry Lacy on 78-47-8115Ppgivurswmntq Ql (U)NegativeNegativeDelaware County HospitalPhencyclidine Ql (U)Phencyclidine [Presence] in Urine by Screen methodNegativeDelaware County HospitalAlanine aminotransferase [Enzymatic activity/volume] in Serum or PlasmaOrdered By: Romeo Santana on 62-79-5097WTE [Catalytic activity/Vol]14 U/L7-52Del[facility] County HospitalAlbumin [Mass/volume] in Serum or Plasma by Bromocresol green (BCG) dye binding methoOrdered By: Romeo Santana on 15-69-3865Lpgjjaj BCG dye [Mass/Vol]4.6 g/dL3.5-5.7FRegency Hospital Cleveland EastAlkaline phosphatase [Enzymatic activity/volume] in Serum or PlasmaOrdered By: Romeo Santana on 66-16-3777RJX [Catalytic activity/Vol]41 U/N99-472XagviednyDelaware County HospitalAspartate aminotransferase [Enzymatic activity/volume] in Serum or PlasmaOrdered By: Romeo Santana on 55-21-8709TOS [Catalytic activity/Vol]13 U/H44-76CbfqvclixDelaware County HospitalBasophils Auto (Bld) [#/Vol]Ordered By: Romeo Santana on 11-28-2023 Basophils (Bld) [#/Vol]0.0 10*3/uL0.0-0.2FRegency Hospital Cleveland East Basophils/100 WBC Auto (Bld)Ordered By: Romeo Santana on 12-94-3992Twsdkadyl/100 WBC (Bld)0.3 %.[facility] HospitalBilirubin.total [Mass/volume] in Serum or PlasmaOrdered By: Romeo Santana on 40-42-9300Iokmybqrp [Mass/Vol]0.5 mg/dL0.3-1.0Del[facility] HospitalCalcium [Mass/volume] in Serum or PlasmaOrdered By: Romeo Santana on 17-89-4527Uqtqmpr [Mass/Vol]9.4 mg/dL8.6-10.3 [facility] HospitalCarbon dioxide, total [Moles/volume] in Serum or PlasmaOrdered By: Romeo Santana on 29-11-5635NJ7 [Moles/Vol]27.8 mmol/L 21.0-31.0[facility] HospitalChloride [Moles/volume] in Serum or PlasmaOrdered By: Romeo Santana on 36-10-7742Nemxwqzn [Moles/Vol]106 mmol/L98-107 [facility] HospitalCreatinine [Mass/volume] in Serum or Plasma Ordered By: Romeo Santana on 66-70-8472Oygefxufdi [Mass/Vol]0.62 mg/dL0.60-1.20 [facility] HospitalEosinophils Auto (Bld) [#/Vol]Ordered By: Romeo Santana on 91-11-4503Ygfkcwkkwkh (Bld) [#/Vol]0.2 10*3/uL0.0-0.45Del[facility] County HospitalEosinophils/100 WBC Auto (Bld)Ordered By: Romeo Santana on 02-33-3440Zcwyokhtzbg/100 WBC (Bld)3.5 %.[facility] Erythrocyte distribution width Auto (RBC) [Ratio]Ordered By: Romeo Santana on 86-75-0671Xgukfwnyhhq distribution width (RBC) [Ratio]14.0 %11.9-15.3FRegency Hospital Cleveland EastGlobulin Calc (S) [Mass/Vol]Ordered By: Romeo Santana on 32-69-5197Zrtyhsft (S) [Mass/Vol]2.0 g/dLDelaware County Hospital Glucose [Mass/volume] in Serum or PlasmaOrdered By: Romeo Santana on 11-28-2023 Glucose [Mass/Vol]76 mg/zO06-516WtmbfshrqDelaware County HospitalHematocrit Auto (Bld) [Volume fraction]Ordered By: Romeo Santana on 14-59-7935Xomhpabsrg (Bld) [Volume fraction]40.1 %34.0-46.4FRegency Hospital Cleveland EastHemoglobin [Mass/volume] in BloodOrdered By: Romeo Santana on 83-62-0838Otrdigxgvb (Bld) [Mass/Vol]13.6 g/dL11.8-15.4FRegency Hospital Cleveland EastLeukocytes [#/volume] corrected for nucleated erythrocytes in Blood by Automated coun Ordered By: Romeo Santana on 27-61-9834LEP corrected for nucl RBC Auto (Bld) [#/Vol]6.4 10*3/uL3.8-11.6FRegency Hospital Cleveland EastLymphocytes Auto (Bld) [#/Vol]Ordered By: Romeo Santana on 29-01-3371Obrypyildpl (Bld) [#/Vol]2.4 10*3/uL1.00-4.8Del[facility] County HospitalLymphocytes/100 WBC Auto (Bld) Ordered By: Romeo Santana on 72-48-8648Lxwwcxlceph/100 WBC (Bld)38.3 %.[facility] HospitalMCH Auto (RBC) [Entitic mass]Ordered By: Romeo Santana on 92-88-2973LOZ (RBC) [Entitic mass]29.3 pg24.7-34.3FRegency Hospital Cleveland EastMCHC Auto (RBC) [Mass/Vol]Ordered By: Romeo Santana on 88-47-3408KUNJ (RBC) [Mass/Vol]33.8 g/dL32.0-35.0[facility] HospitalMCV Auto (RBC) [Entitic vol]Ordered By: Romeo Santana on 31-19-8787IJT (RBC) [Entitic vol]86.7 gA19-024NciwtdfncDelaware County HospitalMonocytes Auto (Bld) [#/Vol]Ordered By: Romeo Santana on 32-17-9239Gdzwatrhx (Bld) [#/Vol]0.4 10*3/uL0.0-0.8Del[facility] HospitalMonocytes/100 WBC Auto (Bld)Ordered By: Romeo Santana on 96-62-1002Nqynwwjoq/100 WBC (Bld)5.8 %.[facility] Neutrophils Auto (Bld) [#/Vol]Ordered By: Romeo Santana on 12-38-7406Dctjdmikdru (Bld) [#/Vol]3.3 10*3/uL1.8-7.7FRegency Hospital Cleveland EastNeutrophils/100 WBC Auto (Bld)Ordered By: Romeo Santana on 68-09-4492Xymycdpuvja/100 WBC (Bld) 52.1 %.[facility] HospitalNo Panel InformationOrdered By: Romeo Santana on 04-63-5485Bkhgihvof GFR (CKD-EPI)> 60.0 mL/MinDelaware County HospitalPharmacy Creatinine Clearance (ChemN/AFRegency Hospital Cleveland EastNucleated erythrocytes [Presence] in Blood by Automated countOrdered By: Romeo Santana on 92-47-9397Blloahmwk RBC Auto Ql (Bld)0.0 /100{WBC}0-0.5FRegency Hospital Cleveland EastPlatelet mean volume Auto (Bld) [Entitic vol]Ordered By: Romeo Santana on 69-61-1102Oqfgxefm mean volume (Bld) [Entitic vol]6.8 fL6.3-10.7 [facility] HospitalPlatelets Auto (Bld) [#/Vol]Ordered By: Romeo Santana on 69-57-5295Zprtbnbxp (Bld) [#/Vol]159 10*3/vZ455-612IhbbmzosiDelaware County HospitalPotassium [Moles/volume] in Serum or PlasmaOrdered By: Romeo Santana on 33-41-5941Cekhovujh [Moles/Vol]4.2 mmol/L3.5-5.1FRegency Hospital Cleveland EastProtein [Mass/volume] in Serum or PlasmaOrdered By: Romeo Santana on 48-72-5567Iavnpti [Mass/Vol]6.6 g/dL6.4-8.9[facility] RBC Auto (Bld) [#/Vol]Ordered By: Romeo Santana on 30-61-6071WCR (Bld) [#/Vol] 4.63 10*6/uL3.60-5.00Regional Medical Centererum or plasma albumin/globulin mass ratioOrdered By: Romeo Santana on 11-28-2023 Albumin/Globulin [Mass ratio]2.3 {ratio}[facility] Medical Centererum or plasma anion gap determinationOrdered By: Romeo Santana on 55-86-9363Pyezn gap [Moles/Vol]10.4 mmol/L6.0-15.0Reg[facility] Medical Centerodium [Moles/volume] in Serum or PlasmaOrdered By: Romeo Santana on 60-06-6002Aagcwn [Moles/Vol]140 mmol/Q679-420KnzrhkrkmDelaware County HospitalUrea nitrogen [Mass/volume] in Serum or PlasmaOrdered By: Romeo Santana on 00-09-8526Sfxy nitrogen [Mass/Vol]7 mg/dL7-25Del[facility] HospitalWBC Auto (Bld) [#/Vol]Ordered By: Romeo Santana on 24-08-1876VEF (Bld) [#/Vol]6.4 10*3/uL 3.8-11.6FRegency Hospital Cleveland EastCoding Summaryon 83-99-2852Uzuswy SummaryHTMLBase 64 TgmlqkfhTMz6nSx+PGhlYWQ+KI6JLKFqS98pfRVphP7uS1XXNOvGTrklWQEZMWgTTgAexrSbSA4qxQDh ZXJu [file] b3J (more content not included)...NormalMagruder HospitalCoding SummaryHTMLBase 64 HjjsudywQDj0aFi+PGhlYWQ+KY0MYAVcJ36dqVCmpT1pC3SVOYwLBehrUPLUHHxDZfCbtoOzLV7okNLo ZXJu [file] b3J (more content not included)...NormalMagruder HospitalProvider Orderson 43-01-8798Tmirtwfs [id number]#1.00OTGTIFF NormalMagrselect medical ohiohealth rehabilitation hospital HospitalChlamydia/GC Amplification LCon 76-43-0225Rofoxgyzw trachomatis, AC LCNegativeInvalid Interpretation CodeNegativeMagruder Hospital Comment on above:Performed By: #### [id number] #### [facility] (DEFAULT) [address] [place] [address] 76020Mpacezpiw gonorrhoeae, AC LCNegativeInvalid Interpretation [facility] TulsaNegSamaritan HospitalComment on above:Result Comment: Performed At: =[facility] [place], [place] [id number] Ivan Calvin MD Ph:[phone] By: #### [id number] #### [facility] (DEFAULT) [address] [place] [address] 58725Imuuenn Formson 20-23-6479Nllyvbs Forms [id number]#1.00OTGTIFFMcKitrick HospitalED Note-Nursingon 70-88-8311AV Note-NursingFluconazole 150mg tab called into [facility] Patient contacted and notified of the results of her culture and the prescription that was sent forher. Instructions on how to take the medication was given, patient verbalized understanding [facility]Auto Diff 132-01-1039Xzoa Floyd %9 %Normal1-12[facility] Comment on above:Performed By: #### [id number], [id number], [id number] #### [facility] (DEFAULT) [address] [place] [address] 53123Eowb Abs#0.0 y20Xccijk6.0-0.2MRiverview Health InstituteComment on above:Performed By: #### [id number], [id number], [id number] #### [facility] (DEFAULT) [address] [place] [address] 89274Iehbklmus/100 WBC (Bld)0.2 %Normal0.2-2.0[facility] Comment on above:Performed By: #### [id number], [id number], [id number] #### [facility] (DEFAULT) [address] [place] [address] 58171Khc Abs#0.3 d37Gzmrnr4.0-0.4[facility] HospitalComment on above:Performed By: #### [id number], [id number], 7231271 #### [facility] (DEFAULT) [address] [place] [address] 38120Bdvlrfbdhra/100 WBC (Bld)9.0 %High0.9-4.0[facility] Comment on above:Performed By: #### [id number], [id number], 5753672 #### [facility] (DEFAULT) [address] [place] [address] 28941Mjrga Abs#0.4 m47Jnu2.3-2.9[facility] HospitalComment on above:Performed By: #### [id number], [id number], 2075056 #### [facility] (DEFAULT) [address] [place] [address] 54250Aggfrjygmjs/100 WBC (Bld)12 %Msz88-91UcixtfsnSelect [facility] [place] Comment on above:Performed By: #### [id number], 0597145, [id number] #### [facility] (DEFAULT) [address] [place] [address] 41464Yiff Abs#0.3 p25Tkfopg1.0-0.8[facility] HospitalComment on above:Performed By: #### [id number], [id number], [id number] #### [facility] (DEFAULT) [address] [place] [address] 84412Sspe Abs#2.4 j88Oqwstw3.5-9.2[facility] HospitalComment on above:Performed By: #### [id number], 7348744, 8454598 #### [facility] (DEFAULT) [address] [place] [address] 27157Fndhqzrrchl/100 WBC (Bld)70 %Eayunh00-89Wdkzuwew Hospital Comment on above:Performed By: #### [id number], [id number], 5527291 #### [facility] (DEFAULT) [address] [place] [address] 97889W Genitalon 11-02-2023 GenitalHeavy growth of Yeast No CARLOS performed on this organism No growth of GC at 3 days. 4+ Gram Positive Rods Few Yeast No WBC's seen. Gram Negative Diplococci not seen.McKitrick HospitalComment on above: Performed By: #### [id number] #### [facility] (DEFAULT) [address] [place] [address] 11229DAI w/ Auto Diffon 87-08-7332Oielseewsol distribution width (RBC) [Ratio]13.7 %Hudiru12.5-15.0[facility], AvonComment on above: Performed By: #### [id number], 3519493, [id number] #### [facility] (DEFAULT) [address] [place], [place] [address]Hematocrit (Bld) [Volume fraction]40.5 %High33.7-40.4 [facility], AvonComment on above:Performed By: #### [id number], [id number], 9032924 #### [facility] (DEFAULT) [address] [place] [address] 98270Plmrltpifa (Bld) [Mass/Vol]13.7 g/qSIykcoz15.3-15.9 [facility], AvonComment on above:Performed By: #### [id number], 5605417, 3997898 #### [facility] (DEFAULT) [address] [place] [address] 06645Swl Diff?AutoInvalid Interpretation [facility] Comment on above:Performed By: #### [id number], [id number], [id number] #### [facility] (DEFAULT) [address] [place] [address] 51679TJJ (RBC) [Entitic mass]29 ylEfbjpy53-63Hkjojuir Hospital Comment on above:Performed By: #### [id number], 6341812, [id number] #### [facility] (DEFAULT) [address] [place] [address] 28180VOTY (RBC) [Mass/Vol]34 g/hLIkvxod38-06Xmbdmtga Hospital Comment on above:Performed By: #### [id number], [id number], 4367656 #### [facility] (DEFAULT) [address] [place] [address] 72187AFN (RBC) [Entitic vol]85 sVBrzghl04-837Tvlrlqix Hospital Comment on above:Performed By: #### [id number], [id number], 5374408 #### [facility] (DEFAULT) [address] [place] [address] 62252Lhxbwane761 r24Gsm731-844Fpqgfdhb HospitalComment on above:Performed By: #### [id number], 4277561, 7975735 #### [facility] (DEFAULT) [address] [place] [address] 20107Nnfwvgvn mean volume (Bld) [Entitic vol]7.0 fLNormal 6.3-10.2[facility] HospitalComment on above:Performed By: #### [id number], 5322551, [id number] #### [facility] (DEFAULT) [address] [place] [address] 59217WIE8.74 x15Hwadtv4.70-5.30[facility] HospitalComment on above:Performed By: #### [id number], 0976771, 9514978 #### [facility] (DEFAULT) [address] [place] [address] 45359DXL6.5 f53Svuuvr9.5-10.5[facility] HospitalComment on above: Performed By: #### [id number], 7868609, [id number] #### [facility] (DEFAULT) [address] [place] [address] 41778RBQ Standardon 06-37-8291aTUD Non AA>60Invalid Interpretation [facility] HospitalComment on above:Performed By: #### [id number], [id number], [id number] #### [facility] (DEFAULT) [address] [place] [address] 70989lQOW AA>60Invalid Interpretation [facility] Comment on above:Performed By: #### [id number], 9287576, [id number] #### [facility] (DEFAULT) [address] [place] [address] 60002Dypuugq [Mass/Vol]4.1 g/dLNormal3.5-5.0[facility] Comment on above:Performed By: #### [id number], 4401413, 6629337 #### [facility] (DEFAULT) [address] [place] [address] 30200Alflhsr/Globulin [Mass ratio]1.7 {ratio}Normal1.4-2.6 [facility] HospitalComment on above:Performed By: #### [id number], 5158997, 3566530 #### [facility] (DEFAULT) [address] [place] [address] 43451Siu Phos40 IU/EFrdxxo56-48Guixhvte HospitalComment on above:Performed By: #### [id number], 7901734, 0734581 #### [facility] (DEFAULT) [address] [place] [address] 31500NWG [Catalytic activity/Vol]20.0 U/IAsuzyx71.0-54.0 [facility] HospitalComment on above:Performed By: #### [id number], 2053228, 2427475 #### [facility] (DEFAULT) [address] [place] [address] 82695Cwpbq gap [Moles/Vol]9.5 mmol/LNormal5.0-19.0[facility] HospitalComment on above:Performed By: #### [id number], 8452149, 8525206 #### [facility] (DEFAULT) [address] [place] [address] 32301OSZ [Catalytic activity/Vol]19 U/YSulubi14-91Cnsqvdej HospitalComment on above:Performed By: #### [id number], 4583204, 5933096 #### [facility] (DEFAULT) [address] [place] [address] 54215Jycc Total0.7 mg/dLNormal0.3-1.2[facility] HospitalComment on above:Performed By: #### [id number], 0153950, 9742689 #### [facility] (DEFAULT) [address] [place] [address] 35704Mjlzdgt [Mass/Vol]8.4 mg/dLLow8.9-10.3[facility] Hospital Comment on above:Performed By: #### [id number], 3509124, 9814140 #### [facility] (DEFAULT) [address] [place] [address] 99953Nldspxcd [Moles/Vol]109 mmol/IZclsaq535-556Podvgonj HospitalComment on above:Performed By: #### [id number], 9064288, 4788123 #### [facility] (DEFAULT) [address] [place] [address] 81593UL8 [Moles/Vol]21 mmol/JNofmbq64-35Zpkwryln Hospital Comment on above:Performed By: #### [id number], 8532754, 0072126 #### [facility] (DEFAULT) [address] [place] [address] 50058Ywhzlmtbqz [Mass/Vol]0.71 mg/dLNormal0.60-1.30[facility], AvonComment on above:Performed By: #### [id number], 3338988, 6646794 #### [facility] (DEFAULT) [address] [place] [address] 22979Dgcbddjl (S) [Mass/Vol]2.4 g/dLNormal1.5-4.3MRiverview Health InstituteComment on above:Performed By: #### [id number], 0771888, 1852232 #### [facility] (DEFAULT) [address] [place] [address] 68752Zdzutot [Mass/Vol]95.0 mg/rAKugdrd45.0-118.0[facility], AvonComment on above:Performed By: #### [id number], 3819142, 0023299 #### [facility] (DEFAULT) [address] [place] [address] 23050Ldtbwzxrnm307 mOsm/LInvalid Interpretation CodeGlenbeigh Hospital HospitalComment on above:Performed By: #### [id number], 2772886, 7258559 #### [facility] (DEFAULT) [address] [place] [address] 96272Pxhxurtmp [Moles/Vol]3.5 mmol/LLow3.6-5.1[facility] Hospital Comment on above:Performed By: #### [id number], 9217286, 7640147 #### [facility] (DEFAULT) [address] [place] [address] 84331Ihpaqij [Mass/Vol]6.5 g/dLNormal6.5-8.1MRiverview Health Institute Comment on above:Performed By: #### [id number], 4169819, 8555721 #### [facility] (DEFAULT) [address] [place] [address] 68404Kogfek [Moles/Vol]136.0 mmol/BUhjnmo578.0-144.0[facility], AvonComment on above:Performed By: #### [id number], 8122484, 8763423 #### [facility] (DEFAULT) [address] [place] [address] 10181Mzlr nitrogen [Mass/Vol]7 mg/dLLow8-26[facility] Comment on above:Performed By: #### [id number], 2727388, 2934318 #### [facility] (DEFAULT) [address] [place] [address] 10080Bxwr nitrogen/Creatinine [Mass ratio]9.8 mg/mgNormal 4.6-16.2MRiverview Health InstituteComment on above:Performed By: #### [id number], 6978025, 5585411 #### [facility] (DEFAULT) [address] [place] [address] 50954JF Abdomen/Pelvis w/ Contraston 23-55-6516ZW Abdomen/Pelvis w/ ContrastEXAMINATION: CT Abdomen/Pelvis w/ Contrast, 11/02/2023, 9:30 AM [...] Kaela Monteiro DO 11/02/23 3:37 pm Technologist: DEYVI DUFFYDayton Children's HospitalED Clinical Summaryon [id number] [facility] Summary[facility] [place] [facility] [address] [place] [address] [id number] ED Clinical Summary PERSON INFORMATION Name: JAZ SANDERS Age: 28 Years Sex: FEMALE : 1995 MRN: Acct#: Visit Reason: Abdominal pain; Nausea; FLANK/HIP PAIN, FEVER Arrival: 11/02/2023 07:57:28 Discharge: 11/02/2023 13:31:00 LOS: 000 05:34 Check In: 11/02/2023 07:57:28 Checkout:11/02/2023 13:31:00 Address: [facility] [id number] PCP: Amanda Ford CNP PROVIDER INFORMATION Provider Role Assigned Unassigned Danita Dolwing RN ED Nurse 11/02/2023 08:07:27 Narda Phillips [...] Follow-Up: With: Address: When: Amanda Ford CNP [address] [place] [id number] Within 3 to 5 days DIAGNOSIS: 1:Hip pain Patient Understands: Yes - Patient/family/caregiver verbalizes understanding of instructions given Comment:[facility] Patient Summaryon [id number] Patient Summary [facility] Emergency Department [address] [place] [address] PATIENT DISCHARGE INSTRUCTIONS Patient Information Name: JAZ SANDERS Age: 28 Years Date of : 1995 Reason For Visit: Abdominal pain; Nausea; FLANK/HIP PAIN, FEVER Arrival Time: 11/02/2023 07:57:28 Primary Care Physician: Amanda Ford CNP Attending Physician: Narda Phillips MD Comment: Visit Diagnosis: Diagnoses This Visit Abdominal pain ([id number]) Hip pain (M25.559) Nausea ([id number]) The Pharmacy at [facility] is open Tuesday through Tuesday from 9A to 6P and Tuesday and Tuesday from 9A to 5P Prescription Information: If you have been given a prescription for narcotics, seek immediate medical attention if you have any difficulty breathing or any sudden status changes such as confusion andsleepiness. If you or anyone you know is experiencing suicidal thoughts, mental health, alcohol and/or drug addiction problems; contact the [facility] 08/11 Crisis Hotline -Text 1HKOG qg [phone]. If you received any narcotics, sedation, or [...] documents With: Address: When: Amanda Ford CNP [facility] [place] [address] Within 3 to 5 days Medication Information: The exam and treatment you received today in the [facility] Emergency Department were for an urgent problem and are not intended as complete care. It is important for you to follow up with a doctor, nurse practitioner, or physician?s mailroom assistant for ongoing care. If your symptoms become worse or you donot improve as expected and you are unable [...] of medications post discharge. Please inform your stitchdowns toe former/provider of your visit and for further instruction on these medications. Any specific questions regarding your chronic medications and dosages should be discussed with your primary care physician(s) and/or pharmacist. New Medications [id number], [place] [id number], [phone] cyclobenzaprine (cyclobenzaprine 10 mg oral tablet) 1 [...] puff(s) Inhale (breathe in) every 4 hours asneeded for wheezing. Refills: 1. ALPRAZolam (Xanax 0.5 mg oral tablet) 1 tab(s) Oral (given by mouth) 2 times per day. PRN. ascorbic acid (Vitamin C 500 mg oral tablet, chewable) 1 tab(s) Chewed every day. busPIRone (busPIRone 15 mg oral tablet) 1 tab(s) Oral (given by mouth) 2 times per day. ciprofloxacin (ciprofloxacin 500 mg oral tablet) 20 Milligrams/Kilogram Oral (given by mouth) Every12 hours scheduled time for 10 Days. cyclobenzaprine (!-Flexeril) 10 Milligram Oral (given by mouth) once a day (at bedtime). PRN. docusate (docusate sodium 100 mg oral capsule) 1 cap(s) Oral (given by mouth) every day as needed for constipation. PRN. ferrous sulfate (ferrous sulfate 325 mg (65 mg elemental iron) oral tablet) 1 tab(s) Oral (given bymouth) 2 times per day. Empty stomach if possible. lamoTRIgine (lamoTRIgine 200 mg oral tablet) 1 tab(s) Oral (given by mouth) every day. TAKE 1 TABLET BY MOUTH ONCE DAILY FOR 30 DAYS. lansoprazole (lansoprazole 30 mg oral delayed release capsule) 1 cap(s) Oral (given by mouth) everyday. MUST MAKE APPT FOR REFILLS. Refills: 0. lidocaine topic (more content not included)...McKitrick HospitalExtra Green on 51-02-0861Oeqb CollectedYesInvalid Interpretation [facility] Comment on above:Performed By: #### [id number] #### [facility] (DEFAULT) [address] [place] [address] 70746Cqvvudncu Test Urine 1on 11-02-2023U PregNegativeNoOhioHealth Nelsonville Health CenterComment on above:Performed By: #### [id number] #### [facility] (DEFAULT) [address] [place] [address] [id number] Preg Internal ControlPassMcKitrick HospitalComment on above:Performed By: #### [id number] #### [facility] (DEFAULT) [address] [place] [address] 12401ZD Lvbew3ys 21-15-1164LJ BacteriaTraceMcKitrick HospitalComment on above:Order Comment: Urinalysis Microscopic order added on by Viewfinity Rules system.Performed By: #### [id number] #### [facility] (DEFAULT) [address] [place] [address] [id number] Mucous1+McKitrick HospitalComment on above:Order Comment: Urinalysis Microscopic order added on by Discern Expert Rules system. Performed By: #### [id number] #### [facility] (DEFAULT) [address] [place] [address] 74995HX RBCNone [facility]enDoctors Hospital HospitalComment on above: Order Comment: Urinalysis Microscopic order added on by Vital Insight Expert Rules system.Performed By: #### [id number] #### [facility] (DEFAULT) [address] [place] [address] [id number] Squam EpiFewNoMemorial Health System [facility] HospitalComment on above: Order Comment: Urinalysis Microscopic order added on by Vital Insight Expert Rules system.Performed By: #### [id number] #### [facility] (DEFAULT) [address] [place] [address] [id number] WBCNone SeenDoctors Hospital HospitalComment on above: Order Comment: Urinalysis Microscopic order added on by Vital Insight Expert Rules system.Performed By: #### [id number] #### [facility] (DEFAULT) [address] [place] [address] [id number] w Culture if Ind Standardon 97-75-3625Defnkoiyul UA [facility]rick HospitalComment on above:Performed By: #### [id number] #### [facility] (DEFAULT) [address] [place] [address] 27325Hresh (U)Dark YellowNoRegional Medical CenterComment on above:Performed By: #### [id number] #### [facility] (DEFAULT) [address] [place] [address] 60685Nxqlftc?Not IndicatedInvalid Interpretation [facility] HospitalComment on above:Result Comment: Result created by rule GL_MAGR_ADD_UA_CULTPerformed By: #### [id number] #### [facility] (DEFAULT) [address] [place] [address] 89961Fieywbg (U) [Mass/Vol]NegativeMcKitrick Hospital Comment on above:Performed By: #### [id number] #### [facility] (DEFAULT) [address] [place] [address] 18697Awxyoje Ql (U)TRACENormalMagruder HospitalComment on above:Performed By: #### [id number] #### [facility] (DEFAULT) [address] [place] [address] 25746Kqdtb?IndicatedInvalid Interpretation CodeMagrselect medical ohiohealth rehabilitation hospital HospitalComment on above:Result Comment: Result created by rule GL_MAGR_ADD_UA_MICROPerformed By: #### [id number] #### [facility] (DEFAULT) [address] [place] [address] 68131OQ BilirubinMODERATEAbnormalGlenbeigh Hospital HospitalComment on above:Performed By: #### [id number] #### [facility] (DEFAULT) [address] [place] [address] 20762UH BloodNegativeNormalNEGATIVEMagrselect medical ohiohealth rehabilitation hospital HospitalComment on above:Performed By: #### [id number] #### [facility] (DEFAULT) [address] [place] [address] 03647MG ClaritySL CLOUDYAbnormalCLEARMagrselect medical ohiohealth rehabilitation hospital HospitalComment on above:Performed By: #### [id number] #### [facility] (DEFAULT) [address] [place] [address] 38395BD Leuk EstNegativeNormalNEGATIVEGlenbeigh Hospital HospitalComment on above:Performed By: #### [id number] #### [facility] (DEFAULT) [address] [place] [address] 24902WX NitriteNegativeNormalNEGATIVEFlgrselect medical [facility]iohealth rehabilitation hospital HospitalComment on above:Performed By: #### [id number] #### [facility] (DEFAULT) [address] [place] [address] 68832PT pH6.7Vdchdc1-3Vmwgakap HospitalComment on above: Performed By: #### [id number] #### [facility] (DEFAULT) [address] [place] [address] 17096XA Xgnzvaa06EmwshvqvAFBNYBKNLzjetazi HospitalComment on above:Performed By: #### [id number] #### [facility] (DEFAULT) [address] [place] [address] 22267BH Spec Grav>=1.076Noyloh0.001-1.035[facility] Comment on above:Performed By: #### [id number] #### [facility] (DEFAULT) [address] [place] [address] 13441PT Urobilinogen1.0 mg/dLNocritical access hospital0.2-1.0[facility] Comment on above:Performed By: #### [id number] #### [facility] (DEFAULT) [address] [place] [address] 87765Hobin SourceClean CatchMcKitrick HospitalComment on above:Performed By: #### [id number] #### [facility] (DEFAULT) [address] [place] [address] 19830Dsa [place] 93-47-0836Ipd [facility] Medical CenterComment on above:Performed By: #### [id number] #### [facility] (DEFAULT) [address] [place] [address] 69099Fsrgpv Summaryon 04-46-1624Iymvbx SummaryHTMLBase 64 MbcbvgryEOy9hCc+PGhlYWQ+PL3EKROqN50etTKtsT0xO1YQBKgRLysrTHUXCUoVDzHrrpVnZT5xbLFk ZXJu [file] [facility] (more content not included)...Mc[facility]rick HospitalBasophils Auto (Bld) [#/Vol]on 11-98-9383Xujectkjd (Bld) [#/Vol]0.0 x100.0-0.2FRegency Hospital Cleveland EastBasophils/100 WBC Auto (Bld)on 35-45-0914Vnufsruqy/100 WBC (Bld) 0.3 %0.2-2.0[facility] HospitalEosinophils/100 WBC Auto (Bld)on 53-60-5391Wsbhezvdrqk/100 WBC (Bld)2.7 %0.9-4.0[facility] Erythrocyte distribution width Auto (RBC) [Ratio]on 85-38-4877Jwqdumjpsxb distribution width (RBC) [Ratio]14.1 %11.5-15.0[facility] Hematocrit Auto (Bld) [Volume fraction]on 02-44-5855Lsbqgyguvd (Bld) [Volume fraction]41.4 %High33.7-40.4FRegency Hospital Cleveland EastHemoglobin [Mass/volume] in Bloodon 17-41-5969Xyebaqdwgr (Bld) [Mass/Vol]14.0 g/dL11.3-15.9 [facility] HospitalIron binding capacity [Mass/volume] in Serum or Plasmaon 36-75-6425Vdjt binding capacity [Mass/Vol]405 mcg/lCWkuy589-360 [facility] HospitalIron saturation [Mass Fraction] in Serum or Plasmaon 24-55-6223Nvcp saturation [Mass fraction]12 %Xfh93-73HclkkeypoDelaware County HospitalLaboratory - Chemistry and Chemistry - challengeon 19-96-3269Qngg [Mass/Vol]48.0 ug/dL28.0-170.0[facility] HospitalTransferrin [Mass/Vol]289.2 mg/dL192.0-382.0[facility] HospitalLeukocytes [#/volume] corrected for nucleated erythrocytes in Blood by Automated counon 44-01-6612VFC corrected for nucl RBC Auto (Bld) [#/Vol]6.4 x103.5-10.5FRegency Hospital Cleveland EastLymphocytes Auto (Bld) [#/Vol]on 08-78-9231Unlezgszttq (Bld) [#/Vol]2.2 x101.3-2.9[facility] HospitalLymphocytes/100 WBC Auto (Bld)on 85-75-4994Myqlmaachit/100 WBC (Bld)34 %14-48Del[facility] HospitalMCH Auto (RBC) [Entitic mass]on 37-46-5517PYR (RBC) [Entitic mass] 29 jf62-31ZldalhcirDelaware County HospitalMCHC Auto (RBC) [Mass/Vol]on 54-08-6496JIOJ (RBC) [Mass/Vol]34 g/xS97-92PpdapybhsDelaware County HospitalMCV Auto (RBC) [Entitic vol]on 45-94-3928JGF (RBC) [Entitic vol]87 qR99-152PzephjghuDelaware County HospitalMonocytes Auto (Bld) [#/Vol]on 57-41-8310Vidaadmfn (Bld) [#/Vol]0.4 x100.0-0.8[facility] HospitalMonocytes/100 WBC Auto (Bld)on 31-78-9130Lvblkvhxu/100 WBC (Bld)6 %1-12[facility] HospitalNeutrophils Auto (Bld) [#/Vol]on 05-34-9481Duufdoevpri (Bld) [#/Vol]3.7 x101.5-9.2FRegency Hospital Cleveland EastNeutrophils/100 WBC Auto (Bld)on 82-96-1452Xdzxvfxtpfq/100 WBC (Bld)57 %44-88Del[facility] HospitalNo Panel Informationon 25-47-9482Qdl Manual DifferentialAuto AutoDelaware County HospitalEosinophils # (Auto)0.2 x100.0-0.4FRegency Hospital Cleveland EastPlatelet mean volume Auto (Bld) [Entitic vol]on 17-28-7113Jvrazlku mean volume (Bld) [Entitic vol]6.7 fL6.3-10.2FRegency Hospital Cleveland East Platelets Auto (Bld) [#/Vol]on 89-26-4725Jwqejwbrl (Bld) [#/Vol]179 u47908-041 [facility] HospitalRBC Auto (Bld) [#/Vol]on 56-61-6605AKK (Bld) [#/Vol]4.76 x103.70-5.30[facility] HospitalFollitropin [Units/volume] in Serum or PlasmaOrdered By: LEOBARDO BARROSO on 06-23-2022 Follitropin Qn6.2 m[IU]/mLDelaware County HospitalComment on above: FEMALE NORMALS (PREMENOPAUSE) MID-FOLLICULAR PHASE: 3.9-8.8 mIU/mL MID-CYCLE PEAK: 4.5-22.5 mIU/mL MID-LUTEAL PHASE: 1.8-5.1 mIU/mLFEMALE NORMALS (POSTMENOPAUSE): 16.7-113.6 mIU/mLMALE NORMALS: 1.3-19.3 mIU/mLProlactin [Mass/volume] in Serum or PlasmaOrdered By: LEOBARDO BARROSO on 06-23-2022 Prolactin [Mass/Vol]7.58 ng/mL3.34-26.72Del[facility] HospitalCT biopsyOrdered By: Amanda Ford on 88-89-8371Dcboradzmah [Mass/Vol]393 mg/nF891-665IqciyymfqDelaware County HospitalIron [Mass/volume] in Serum or PlasmaOrdered By: Amanda Ford on 43-08-5091Vrcw [Mass/Vol]34 ug/rL20-062 [facility] HospitalIron binding capacity [Mass/volume] in Serum or PlasmaOrdered By: Amanda Ford on 56-20-8584Fqoq binding capacity [Mass/Vol]550 ug/yH887-741KxhmmyoilDelaware County HospitalIron saturation [Mass Fraction] in Serum or PlasmaOrdered By: Amanda Ford on 49-03-5969Slwe saturation [Mass fraction]6.2 %20-50[facility] Anisocytosis LM Ql (Bld)Ordered By: Farhad Gallego on 65-80-8386Cgbylsfoikid Ql (Bld)MarkedDelaware County HospitalBasophils Auto (Bld) [#/Vol]Ordered By: Farhad Gallego on 49-06-6551Wxorxnvny (Bld) [#/Vol]N/[facility] CenterBasophils/100 WBC Auto (Bld)Ordered By: Farhad Gallego on 06-11-2022 Basophils/100 WBC (Bld)N/[facility] CenterBasophils/100 WBC Manual cnt (Bld)Ordered By: Farhad Gallego on 57-62-8359Yxbprrgfj/100 WBC (Bld)1 % 0-2FRegency Hospital Cleveland EastEosinophils Auto (Bld) [#/Vol]Ordered By: Farhad Gallego on 26-94-0096Wkdbmaeivfg (Bld) [#/Vol]N/[facility] CenterEosinophils/100 WBC Auto (Bld)Ordered By: Farhad Doverram on 06-11-2022 Eosinophils/100 WBC (Bld)N/[facility] CenterEosinophils/100 WBC Manual cnt (Bld)Ordered By: Farhad Lashonda on 45-88-4567Fgqirggqqht/100 WBC (Bld) 7 %1-3FRegency Hospital Cleveland EastErythrocyte distribution width Auto (RBC) [Ratio]Ordered By: Farhad Lashonda on 68-41-7775Kjwdwvzbukm distribution width (RBC) [Ratio]26.1 %11.9-15.3FRegency Hospital Cleveland EastHematocrit Auto (Bld) [Volume fraction]Ordered By: Farhad Lashonda on 06-73-5802Ihbmahutoo (Bld) [Volume fraction]25.7 %34.0-46.4FRegency Hospital Cleveland EastHemoglobin [Mass/volume] in BloodOrdered By: Farhad Lashonda on 22-77-5732Tbppslipwe (Bld) [Mass/Vol]8.0 g/dL11.8-15.4FRegency Hospital Cleveland EastHypochromia LM Ql (Bld)Ordered By: Farhad Lashonda on 68-85-4846Egrqymofxkl Ql (Bld)[facility] HospitalLeukocytes [#/volume] corrected for nucleated erythrocytes in Blood by Automated counOrdered By: Farhad Lashonda on 03-37-5833PFB corrected for nucl RBC Auto (Bld) [#/Vol]5.0 10*3/uL3.8-11.6FRegency Hospital Cleveland EastLymphocytes Auto (Bld) [#/Vol]Ordered By: Farhad Lashonda on 69-85-6256Mrraucqqkxx (Bld) [#/Vol]N/[facility] Lymphocytes/100 WBC Auto (Bld)Ordered By: Farhad Lashonda on 06-11-2022 Lymphocytes/100 WBC (Bld)N/[facility] CenterLymphocytes/100 WBC Manual cnt (Bld)Ordered By: Farhad Lashonda on 37-25-5422Yjlgzjayxij/100 WBC (Bld) 56 %18-42[facility] Auto (RBC) [Entitic mass]Ordered By: Farhad Lashonda on 99-92-6122WNC (RBC) [Entitic mass]21.1 pg24.7-34.3FMercy Health Fairfield HospitalHC Auto (RBC) [Mass/Vol]Ordered By: Farhad Lashonda on 70-44-8172ELHI (RBC) [Mass/Vol]31.2 g/dL32.0-35.0[facility] HospitalMCV Auto (RBC) [Entitic vol]Ordered By: Farhad Lashonda on 28-14-5966ZFX (RBC) [Entitic vol]67.6 oC19-027NwwjelxuxDelaware County HospitalMicrocytes LM Ql (Bld)Ordered By: Farhad Lashonda on 57-40-4834Uybmcnzvzt Ql (Bld)MarkedDelaware County HospitalMonocytes Auto (Bld) [#/Vol]Ordered By: Farhad Lashonda on 74-90-3555Odryspirv (Bld) [#/Vol]N/[facility] Monocytes/100 WBC Auto (Bld)Ordered By: Farhad Lashonda on 83-33-4886Xjgnxdogi/100 WBC (Bld)N/[facility] CenterMonocytes/100 WBC Manual cnt (Bld) Ordered By: Farhad Lashonda on 13-19-6924Rrmreptzg/100 WBC (Bld)5 %2-11[facility] HospitalNeutrophils Auto (Bld) [#/Vol]Ordered By: Farhad Lashonda on 57-50-2793Zrjibzolrww (Bld) [#/Vol]N/[facility] Neutrophils/100 WBC Auto (Bld)Ordered By: Farhad Lashonda on 06-11-2022 Neutrophils/100 WBC (Bld)N/[facility] Medical CenterNucleated erythrocytes [Presence] in Blood by Automated countOrdered By: Farhad Lashonda on 80-33-4167Frhynrkyj RBC Auto Ql (Bld)N/[facility] Platelet adequacy [Presence] in Blood by Light microscopyOrdered By: Farhad Lashonda on 05-49-4314Supyygizq LM Ql (Bld)NormalNoMercy Health Defiance HospitalPlatelet mean volume Auto (Bld) [Entitic vol]Ordered By: Farhad Gallego on 58-28-4927Kauxabjw mean volume (Bld) [Entitic vol]8.2 fL6.3-10.7FRegency Hospital Cleveland EastPlatelet morphology finding [Identifier] in BloodOrdered By: FarhadMerchant on 87-68-5549Mjegrlso morphology finding Nom (Bld)NormalNoGreene Memorial HospitalPlatelets Auto (Bld) [#/Vol]Ordered By: FarhadMerchant on 47-35-9038Leehgdpud (Bld) [#/Vol]165 10*3/fU729-441UxezacvyeDelaware County HospitalPolychromasia [Presence] in Blood by Light microscopyOrdered By: Farhad Gallego on 73-10-5321Slubsbvalbhzi LM Ql (Bld)MarkedDelaware County HospitalRBC Auto (Bld) [#/Vol]Ordered By: Farhad Gallego on 58-30-0581DLM (Bld) [#/Vol]3.80 10*6/uL3.60-5.00[facility] HospitalRBC morphologyOrdered By: Farhad Gallego on 92-38-0076HPM morphology finding Nom (Bld) N/AFGerman Hospitalegmented neutrophils/100 WBC Manual cnt (Bld)Ordered By: Farhad Gallego on 36-09-6921Zdtjnlfdj neutrophils/100 WBC (Bld)32 %50-70[facility] HospitalWBC Auto (Bld) [#/Vol]Ordered By: FarhadMerchant on 12-00-2875ORV (Bld) [#/Vol]5.0 10*3/uL3.8-11.6FRegency Hospital Cleveland EastActivated partial thromboplastin time (aPTT) in platelet poor plasma by coagulation aOrdered By: Jean Jett on 86-71-5271sRRX Coag (PPP) [Time]29.8 s25.1-36.5FRegency Hospital Cleveland EastAnisocytosis LM Ql (Bld) Ordered By: Jean Jett on 41-73-8725Hfhgkyiyajel Ql (Bld)MarkedDelaware County HospitalBasophils Auto (Bld) [#/Vol]Ordered By: Jean Jett on 01-18-4960Onktnuxpo (Bld) [#/Vol]0.1 10*3/uL0.0-0.2FRegency Hospital Cleveland EastBasophils/100 WBC Auto (Bld)Ordered By: Jean Jett on 06-10-2022 Basophils/100 WBC (Bld)1.8 %.[facility] HospitalBilirubin Test strip Ql (U)Ordered By: Jean Jett on 10-75-2615Whkcetvmc Ql (U)Negative NegativeDelaware County HospitalCT biopsyOrdered By: Jean Jett on 82-45-6947Nfwacqosgeg [Mass/Vol]380 mg/tX303-417QruzvfmmrDelaware County HospitalCalcium [Mass/volume] in Serum or PlasmaOrdered By: Jean Jett on 33-29-6154Rqnwgiw [Mass/Vol]8.6 mg/dL8.2-10.2FRegency Hospital Cleveland East Carbon dioxide, total [Moles/volume] in Serum or PlasmaOrdered By: Jean Jett on 13-64-2722WB0 [Moles/Vol]23.3 mmol/L22.0-30.0[facility] HospitalChloride [Moles/volume] in Serum or PlasmaOrdered By: Jean Jett on 42-92-4493Bewzpwkt [Moles/Vol]106 mmol/S04-089WnprcjuxkDelaware County Hospital Color Auto (U)Ordered By: Jean Jett on 23-34-9186Cpiie (U)YellowYellow [facility] HospitalCreatine kinase [Enzymatic activity/volume] in Serum or PlasmaOrdered By: Jean Jett on 70-73-8419MF [Catalytic activity/Vol] 100 U/H74-101DniodubgtDelaware County HospitalCreatinine and Glomerular filtration rate.predicted panel (S/P/Bld)Ordered By: Jean Jett on 06-10-2022 Creatinine [Mass/Vol]0.71 mg/dL0.44-1.03[facility] Eosinophils Auto (Bld) [#/Vol]Ordered By: Jean Jett on 82-32-9640Wqmuxwtrizc (Bld) [#/Vol]0.3 10*3/uL0.0-0.45Del[facility] HospitalEosinophils/100 WBC Auto (Bld)Ordered By: Jean Jett on 04-53-4624Jqalcmxuoai/100 WBC (Bld) 5.0 %.[facility] HospitalErythrocyte distribution width Auto (RBC) [Ratio]Ordered By: Jean Jett on 30-35-0699Elytrxpcsxx distribution width (RBC) [Ratio]24.6 %11.9-15.3FRegency Hospital Cleveland EastEstimated glomerular filtration rate (GFR) non- AmericanOrdered By: Jean Jett on 21-99-8645MVD/1.73 sq M.predicted among non-blacks MDRD (S/P/Bld) [Vol rate/Area]> 60 mL/MinDelaware County HospitalFecal occult blood detection by immunochemistryOrdered By: Jean Jett on 06-10-2022 Hemoglobin.gastrointestinal Ql (Stl)[facility] HospitalGlucose [Mass/volume] in Serum or PlasmaOrdered By: Jean Jett on 41-43-4033Tdkjddz [Mass/Vol]94 mg/mM06-790KdbpsrmtsDelaware County HospitalComment on above:ADA recommended reference rangeRandom Glucose Reference Range is dependent on time and content of last meal. Glucose of more than 200 mg/dL in a nonstressed, ambulatory subject supports the diagnosisof Diabetes Mellitus.HCG ( test) IA.rapid Ql (U)Ordered By: Jean Jett on 74-03-6833LXE ( test) Ql (U)NegativeDelaware County HospitalHematocrit Auto (Bld) [Volume fraction]Ordered By: Jean Jett on 43-01-4125Eovoiilspr (Bld) [Volume fraction]23.8 %34.0-46.4FRegency Hospital Cleveland EastHemoglobin [Mass/volume] in BloodOrdered By: Jean Jett on 43-24-0453Lulqatwitw (Bld) [Mass/Vol]7.3 g/dL11.8-15.4FRegency Hospital Cleveland EastHypochromia LM Ql (Bld)Ordered By: Jean Jett on 39-09-2525Iahesifmwkn Ql (Bld)MarkedDelaware County HospitalIron [Mass/volume] in Serum or PlasmaOrdered By: Jean Jett on 04-10-1911Kqai [Mass/Vol]25 ug/uB08-549OhdzgkvcjDelaware County HospitalIron binding capacity [Mass/volume] in Serum or PlasmaOrdered By: Jean Jett on 16-10-2408Npie binding capacity [Mass/Vol]532 ug/cI233-912NxpdnqsztDelaware County HospitalIron saturation [Mass Fraction] in Serum or PlasmaOrdered By: Jean Jett on 76-55-4204Mdfy saturation [Mass fraction]4.7 %20-50Del[facility] County HospitalKetones Auto test strip (U) [Mass/Vol]Ordered By: Jean Jett on 75-78-5807Xpsbnxf (U) [Mass/Vol]NegativeNegativeDelaware County HospitalLaboratory - Chemistry and Chemistry - challengeOrdered By: Jean Jett on 60-51-4566Fqnpyftqw [Mass/Vol]1.9 mg/dL1.6-2.6FRegency Hospital Cleveland EastNatriuretic peptide B (Bld) [Mass/Vol]23.0 pg/mL5-100Del[facility] County HospitalLaboratory - CoagulationOrdered By: Jean Jett on 84-63-8753SV Coag (PPP) [Time]12.9 s9.0-12.9[facility] Leukocytes [#/volume] corrected for nucleated erythrocytes in Blood by Automated counOrdered By: Jean Jett on 18-58-6493XOX corrected for nucl RBC Auto (Bld) [#/Vol]5.3 10*3/uL3.8-11.6FRegency Hospital Cleveland EastLymphocytes Auto (Bld) [#/Vol]Ordered By: Jean Jett on 24-69-2555Heuyeeodced (Bld) [#/Vol]2.2 10*3/uL1.00-4.8[facility] HospitalLymphocytes/100 WBC Auto (Bld) Ordered By: Jean Jett on 63-15-5360Sttfnxdiqvz/100 WBC (Bld)41.3 %.[facility] HospitalMCH Auto (RBC) [Entitic mass]Ordered By: Jean Jett on 41-99-5912QCT (RBC) [Entitic mass]19.7 pg24.7-34.3FRegency Hospital Cleveland EastMCHC Auto (RBC) [Mass/Vol]Ordered By: Jean Jett on 72-41-0048HWOD (RBC) [Mass/Vol]30.6 g/dL32.0-35.0Del[facility] HospitalMCV Auto (RBC) [Entitic vol]Ordered By: Jean Jett on 38-30-1096QMZ (RBC) [Entitic vol]64.5 zJ31-570VdiienzxtDelaware County HospitalMicrocytes LM Ql (Bld)Ordered By: Jean Jett on 03-15-6552Fhvbdzofit Ql (Bld)MarkedDelaware County HospitalMonocyte distribution width [Entitic volume] in Blood by AutomatedOrdered By: Jean Jett on 11-71-6634Bqcludft distribution width Auto (Bld) [Entitic vol]17.54 %0.00-20.00[facility] HospitalMonocytes Auto (Bld) [#/Vol]Ordered By: Jean Jett on 85-53-2842Fqubbptjq (Bld) [#/Vol]0.4 10*3/uL 0.0-0.8[facility] HospitalMonocytes/100 WBC Auto (Bld)Ordered By: Jean Jett on 69-97-7130Cbgpbyjei/100 WBC (Bld)6.8 %.[facility] HospitalNeutrophils Auto (Bld) [#/Vol]Ordered By: Jean Jett on 48-61-4550Qygjaiqonwp (Bld) [#/Vol]2.4 10*3/uL1.8-7.7FRegency Hospital Cleveland EastNeutrophils/100 WBC Auto (Bld)Ordered By: Jean Jett on 06-10-2022 Neutrophils/100 WBC (Bld)45.1 %.[facility] HospitalNitrite Test strip Ql (U)Ordered By: Jean Jett on 62-13-8661Arlfqah Ql (U)NegativeNegative [facility] HospitalNo Panel InformationOrdered By: Jean Jett on 66-85-6603Bfipdqavd GFR ()> 60 mL/MinDelaware County HospitalComment on above:GFR estimated reference range: According to KDOQI guidelines, <60 ml/min/1.73m2 is sufficient todiagnose a patient with chronic kidney disease.Pharmacy Creatinine Clearance (Nocz578.49[facility] HospitalNucleated erythrocytes [Presence] in Blood by Automated count Ordered By: Jean Jett on 23-64-5134Vveorowvu RBC Auto Ql (Bld)0.1 /100{WBC} 0-0.5FRegency Hospital Cleveland EastOvalocyte detectionOrdered By: Jean Jett on 90-93-9175Sfcphwaofv LM Ql (Bld)SlightDelaware County Hospital Platelet adequacy [Presence] in Blood by Light microscopyOrdered By: Jean Jett on 62-12-8467Bpyvbuxob LM Ql (Bld)NormalNormFulton County Health CenterPlatelet mean volume Auto (Bld) [Entitic vol]Ordered By: Jean Jett on 12-58-3368Fcicqhpf mean volume (Bld) [Entitic vol]8.3 fL6.3-10.7FRegency Hospital Cleveland EastPlatelet morphology finding [Identifier] in BloodOrdered By: Jean Jett on 87-49-9757Xyasygks morphology finding Nom (Bld)NormalNormal [facility] HospitalPlatelet poor plasma international normalized ratio (INR) by coagulation assay (relatOrdered By: Jean Jett on 96-53-6654SOS Coag (PPP) [Relative time]1.1 {INR}[facility] County HospitalComment on above:INR Therapeutic Range A) Pre- and Peroperative OAT started two weeks before surgery. NOT HIP SURGERY: 1.5 - 2.5 HIP SURGERY: 2 - 3B) Primary and secondary prevention of venous THROMBOSIS: 2 - 3C) Active venous thrombosis, pulmonary embolismand prevention of recurrent venous thrombosis: 2 - 3D) Preve ntion of arterial thromboembolismincluding patients with mechanical heart valves: 3 - 4.5Platelets Auto (Bld) [#/Vol]Ordered By: Jean Jett on 03-19-3087Vxrczmnkj (Bld) [#/Vol]202 10*3/sV149-011BqnzvtmjmDelaware County HospitalPoikilocytosis [Presence] in Blood by Light microscopyOrdered By: Jean Jett on 17-27-1872Smmlaertxdzwqv LM Ql (Bld)[facility] HospitalPolychromasia [Presence] in Blood by Light microscopyOrdered By: Jean Jett on 44-77-0546Rtzricoiqxqot LM Ql (Bld)[facility] HospitalPotassium [Moles/volume] in Serum or PlasmaOrdered By: Jean Jett on 94-16-2197Qlfuyiifs [Moles/Vol]4.1 mmol/L3.5-5.1FRegency Hospital Cleveland EastProtein Auto test strip (U) [Mass/Vol]Ordered By: Jean Jett on 84-11-6550Sbhzwho (U) [Mass/Vol]NegativeNegativeDelaware County HospitalRBC Auto (Bld) [#/Vol]Ordered By: Jean Jett on 08-16-3646ABJ (Bld) [#/Vol]3.69 10*6/uL3.60-5.00[facility] morphology Ordered By: Jean Jett on 22-49-4007WGU morphology finding Nom (Bld)N/A Regional Medical Centererum or plasma anion gap determinationOrdered By: Jean Jett on 60-72-2980Vcamv gap [Moles/Vol]10.8 mmol/L6.0-15.0[facility] Medical Centerodium [Moles/volume] in Serum or PlasmaOrdered By: Jean Jett on 65-65-9294Yfyhxj [Moles/Vol]136 mmol/K299-272QfhdfuhhjRegional Medical Centerpecific gravity Auto test strip (U) [Rel density]Ordered By: Jean Jett on 31-76-8845Ojzkdxcv gravity (U) [Rel density]1.0101.001-1.030 [facility] HospitalTarget cellsOrdered By: Jean Jett on 11-06-6385Sjfmhm cells LM Ql (Bld)[facility] Teardrop cell detectionOrdered By: Jean Jett on 15-53-2080Kkhsjdprwd LM Ql (Bld)[facility] HospitalTroponin I.cardiac [Mass/volume] in Serum or Plasma by High sensitivity methodOrdered By: Jean Jett on 06-10-2022 Troponin I.cardiac High sensitivity method [Mass/Vol]< 3 pg/mL0-15Del[facility] HospitalUrea nitrogen [Mass/volume] in Serum or PlasmaOrdered By: Jean Jett on 44-83-3989Zouz nitrogen [Mass/Vol]9 mg/dL9[facility] HospitalUrine clarity by refractometry automatedOrdered By: Jean Jett on 51-92-3538Oluplkg Refractometry automated (U)ClearClearFRegency Hospital Cleveland EastUrine glucose measurement by automated test strip (mass/volume) Ordered By: Jean Jett on 59-98-7859Dsggznn Auto test strip (U) [Mass/Vol] Normal mg/dLNoMercy Health Defiance HospitalUrine hemoglobin detection by automated test stripOrdered By: Jean Jett on 46-98-6495Wjhpeymprs Auto test strip Ql (U)NegativeNegSelect Medical Cleveland Clinic Rehabilitation Hospital, BeachwoodUrine leukocyte esterase detection by automated test stripOrdered By: Jean Jett on 06-10-2022 Leukocyte esterase Auto test strip Ql (U)NegativeNegSelect Medical Cleveland Clinic Rehabilitation Hospital, BeachwoodUrobilinogen Auto test strip (U) [Mass/Vol]Ordered By: Jean Jett on 29-94-8586Lnvkyjgthwbj (U) [Mass/Vol]Normal mg/dLBlanchard Valley Health SystemWBC Auto (Bld) [#/Vol]Ordered By: Jean Jett on 37-21-7262OQO (Bld) [#/Vol]5.3 10*3/uL3.8-11.6FRegency Hospital Cleveland East pH Auto test strip (U)Ordered By: Jean Jett on 52-16-9829zT (U)5.5 [pH] 5.0-9.0Del[facility] HospitalAlkaline phosphatase [Enzymatic activity/volume] in Serum or PlasmaOrdered By: Julieta Jefferson on 06-26-1651TKI [Catalytic activity/Vol]39 U/U93-69QglxnsgrvDelaware County HospitalAnisocytosis LM Ql (Bld)Ordered By: Julieta Jefferson on 33-44-2143Powtpukcptij Ql (Bld)Marked [facility] HospitalAspartate aminotransferase [Enzymatic activity/volume] in Serum or PlasmaOrdered By: Julieta Jefferson on 58-95-4657EUG [Catalytic activity/Vol]15 U/O39-02ZznwbxtzeDelaware County HospitalBasophils Auto (Bld) [#/Vol]Ordered By: Julieta Jefferson on 19-32-0099Zcvcgqjdd (Bld) [#/Vol] 0.1 10*3/uL0.0-0.2FRegency Hospital Cleveland EastBasophils/100 WBC Auto (Bld) Ordered By: Julieta Jefferson on 77-09-3995Jvowgmgtf/100 WBC (Bld)1.4 %.[facility] HospitalBody fluid albumin measurement (mass/volume)Ordered By: Julieta Jefferson on 94-37-3398Zcqdqae (Body fld) [Mass/Vol]4.1 g/dL3.2-5.5FRegency Hospital Cleveland EastCalcium [Mass/volume] in Serum or PlasmaOrdered By: Julieta Jefferson on 26-57-7082Oxwimnn [Mass/Vol]9.0 mg/dL8.2-10.2FRegency Hospital Cleveland EastCarbon dioxide, total [Moles/volume] in Serum or PlasmaOrdered By: Julieta Jefferson on 09-63-7015VL7 [Moles/Vol]23.3 mmol/L22.0-30.0[facility] HospitalCholesterol [Mass/volume] in Serum or PlasmaOrdered By: Julieta Jefferson on 95-61-5143Vlcbplxbxgd [Mass/Vol]137 mg/cZ994-924PskmuowvfDelaware County HospitalComment on above:Chol less than 200 mg/dl low riskChol 201-239 mg/dl borderline riskChol 240 mg/dl and greater high riskCholesterol in LDL Calc [Mass/Vol]Ordered By: Julieta Jefferson on 53-91-1596Qomshiglvmy in LDL [Mass/Vol]72 mg/dL0-100Del[facility] HospitalComment on above:LDL ATP III CLASSIFICATIONLDL less than 100 mg/dL OptimalLDL 100-129 mg/dL Near or above uxxqvndXLB151-527 mg/dL Borderline highLDL 160-189 mg/dL HighLDL greater than 189 mg/dL Very highCholesterol in VLDL Calc [Mass/Vol]Ordered By: Julieta Jefferson on 51-68-2039Nnvedshiniy in VLDL [Mass/Vol]9 mg/dLDelaware County HospitalCreatinine and Glomerular filtration rate.predicted panel (S/P/Bld)Ordered By: Julieta Jefferson on 28-52-4100Jawktrrity [Mass/Vol]0.59 mg/dL0.44-1.03Del[facility] HospitalEosinophils Auto (Bld) [#/Vol]Ordered By: Julieta Jefferson on 31-52-6285Qchgltddops (Bld) [#/Vol]0.3 10*3/uL0.0-0.45Del[facility] HospitalEosinophils/100 WBC Auto (Bld)Ordered By: Julieta Jefferson on 06-09-2022 Eosinophils/100 WBC (Bld)6.8 %.[facility] HospitalErythrocyte distribution width Auto (RBC) [Ratio]Ordered By: Julieta Jefferson on 06-09-2022 Erythrocyte distribution width (RBC) [Ratio]24.5 %11.9-15.3FRegency Hospital Cleveland EastEstimated glomerular filtration rate (GFR) non- Ordered By: Julieta Jefferson on 34-50-0264EZE/1.73 sq M.predicted among non-blacks MDRD (S/P/Bld) [Vol rate/Area]> 60 mL/MinDelaware County Hospital Globulin Calc (S) [Mass/Vol]Ordered By: Julieta Jefferson on 08-20-4458Fcblxutz (S) [Mass/Vol]2.3 g/dLDelaware County HospitalGlucose mean value [Mass/volume] in Blood Estimated from glycated hemoglobinOrdered By: Julieta Jefferson on 18-19-0429Gwornmp glucose Estimated from glycated hemoglobin (Bld) [Mass/Vol]97 mg/dLDelaware County HospitalHematocrit Auto (Bld) [Volume fraction]Ordered By: Julieta Jefferson on 87-77-1674Shwpppgcts (Bld) [Volume fraction]26.0 %34.0-46.4FRegency Hospital Cleveland EastHemoglobin A1c percentageOrdered By: Julieta Jefferson on 11-32-1650NiN4l (Bld) [Mass fraction]5.0 % 4.3-5.6FRegency Hospital Cleveland EastComment on above:Increased risk for diabetes: 5.7 - 6.4diabetes: >6.4glycemic control for adults with diabetes: &l t;7.0Hemoglobin [Mass/volume] in BloodOrdered By: Julieta Jefferson on 06-09-2022 Hemoglobin (Bld) [Mass/Vol]7.8 g/dL11.8-15.4FRegency Hospital Cleveland East Hypochromia LM Ql (Bld)Ordered By: Julieta Jefferson on 38-18-8012Vhpwykhfmhe Ql (Bld) ModerateDelaware County HospitalLeukocytes [#/volume] corrected for nucleated erythrocytes in Blood by Automated counOrdered By: Julieta Jefferson on 17-03-3826HKG corrected for nucl RBC Auto (Bld) [#/Vol]4.6 10*3/uL3.8-11.6 [facility] HospitalLymphocytes Auto (Bld) [#/Vol]Ordered By: Julieta Jefferson on 97-88-1261Zgupcjdgqgk (Bld) [#/Vol]2.0 10*3/uL1.00-4.8[facility] HospitalLymphocytes/100 WBC Auto (Bld)Ordered By: Julieta Jefferson on 90-09-9031Ndjcvjxkdup/100 WBC (Bld)44.2 %.[facility] Auto (RBC) [Entitic mass]Ordered By: Julieta Jefferson on 87-62-6023HEI (RBC) [Entitic mass]19.7 pg24.7-34.3FRegency Hospital Cleveland EastMCHC Auto (RBC) [Mass/Vol]Ordered By: Julieta Jefferson on 94-96-6536VROW (RBC) [Mass/Vol]30.2 g/dL 32.0-35.0Del[facility] HospitalMCV Auto (RBC) [Entitic vol]Ordered By: Julieta Jefferson on 39-63-5001IKN (RBC) [Entitic vol]65.3 aE62-568JmxhcotdpDelaware County HospitalMicrocytes LM Ql (Bld)Ordered By: Julieta Jefferson on 96-77-9000Hzbxkukmse Ql (Bld)MarkedDelaware County HospitalMonocytes Auto (Bld) [#/Vol]Ordered By: Julieta Jefferson on 43-08-8048Ixfizuneg (Bld) [#/Vol] 0.4 10*3/uL0.0-0.8[facility] HospitalMonocytes/100 WBC Auto (Bld) Ordered By: Julieta Jefferson on 82-15-0991Jimdbswon/100 WBC (Bld)8.9 %.[facility] HospitalNeutrophils Auto (Bld) [#/Vol]Ordered By: Julieta Jefferson on 42-58-4452Tgbkdiioojg (Bld) [#/Vol]1.8 10*3/uL1.8-7.7FRegency Hospital Cleveland EastNeutrophils/100 WBC Auto (Bld)Ordered By: Julieta Jefferson on 06-09-2022 Neutrophils/100 WBC (Bld)38.7 %.[facility] HospitalNo Panel InformationOrdered By: Julieta Jefferson on 22-81-6321Izkosdfus GFR () > 60 mL/MinDelaware County HospitalComment on above:GFR estimated reference range: According to KDOQI guidelines, <60 ml/min/1.73m2 is sufficient todiagnose a patient with chronic kidney disease.Pharmacy Creatinine Clearance (ChemN/[facility] Medical CenterNucleated erythrocytes [Presence] in Blood by Automated countOrdered By: Julieta Jefferson on 22-57-6861Toxhngwtx RBC Auto Ql (Bld)0.1 /100{WBC}0-0.5FRegency Hospital Cleveland EastPlatelet adequacy [Presence] in Blood by Light microscopyOrdered By: Julieta Jefferson on 06-09-2022 Platelets LM Ql (Bld)NormalNormFulton County Health CenterPlatelet mean volume Auto (Bld) [Entitic vol]Ordered By: Julieta Jefferson on 22-83-5458Doiimmqs mean volume (Bld) [Entitic vol]8.2 fL6.3-10.7FRegency Hospital Cleveland East Platelet morphology finding [Identifier] in BloodOrdered By: Julieta Jefferson on 16-78-4273Odpdhrdv morphology finding Nom (Bld)NormalNoMercy Health Defiance HospitalPlatelets Auto (Bld) [#/Vol]Ordered By: Julieta Jefferson on 06-09-2022 Platelets (Bld) [#/Vol]200 10*3/oD476-227MdhylusscDelaware County Hospital Poikilocytosis [Presence] in Blood by Light microscopyOrdered By: Julieta Jefferson on 66-77-1416Gctdbqpoobnsll LM Ql (Bld)[facility] Polychromasia [Presence] in Blood by Light microscopyOrdered By: Julieta Jefferson on 37-85-9067Mcyvzwaekijst LM Ql (Bld)ModerateDelaware County Hospital Protein [Mass/volume] in Serum or PlasmaOrdered By: Julieta Jefferson on 06-09-2022 Protein [Mass/Vol]6.4 g/dL6.1-7.9Del[facility] HospitalRB Auto (Bld) [#/Vol]Ordered By: Julieta Jefferson on 06-41-5802SIA (Bld) [#/Vol]3.97 10*6/uL 3.60-5.00[facility] morphologyOrdered By: Julieta Jefferson on 32-82-6841IVW morphology finding Nom (Bld)N/[facility] Hospitalchistocytes [Presence] in Blood by Light microscopyOrdered By: Julieta Jefferson on 43-18-5265Vtglkjwbthue LM Ql (Bld)[facility] Hospitalerum or plasma alanine aminotransferase measurement without P-5'-P (enzymatic activiOrdered By: Julieta Jefferson on 86-31-0545ZXE No additional P-5'-P [Catalytic activity/Vol]14 U/T83-35RhvizkwqkRegional Medical Centererum or plasma albumin/globulin mass ratioOrdered By: Julieta Jefferson on 06-09-2022 Albumin/Globulin [Mass ratio]1.8 {ratio}[facility] Medical Centererum or plasma anion gap determinationOrdered By: Julieta Jefferson on 72-14-2678Zlykn gap [Moles/Vol]11.5 mmol/L6.0-15.0[facility] Medical Centererum or plasma calcitriol measurement (mass/volume)Ordered By: Julieta Jefferson on ,25- dihydroxyvitamin D3 [Mass/Vol]60.5 pg/mL24.8-81.5FRegency Hospital Cleveland EastComment on above:Performed at: - Lab[address] [id number] Director: Jon Horton MD, Phone: [phone] or plasma chloride measurement (moles/volume)Ordered By: Julieta Jefferson on 46-79-1152Dojpvozj [Moles/Vol]106 mmol/P49-762PvolsaclyDelaware County Hospital Serum or plasma glucose measurement (mass/volume)Ordered By: Julieta Jefferson on 33-67-3230Huphawh [Mass/Vol]78 mg/uK48-160ZuilvuxavDelaware County Hospital Comment on above:ADA recommended reference rangeRandom Glucose Reference Range is dependent on time and content of last meal. Glucose of more than 200 mg/dL in a nonstressed, ambulatory subject supports the diagnosisof Diabetes Mellitus. Serum or plasma high density lipoprotein (HDL) cholesterol measurementOrdered By: Julieta Jefferson on 29-88-4840Dzvhzptbewy in HDL [Mass/Vol]56 mg/xH18-33FoifozakmDelaware County HospitalComment on above:HDL CHOL ATP-III CLASSIFICATION Cardiovascular RiskHDL > or equal to 60 mg/dL LOWHDL < 40 mg/dL HIGHSerum or plasma potassium measurement (moles/volume)Ordered By: Julieta Jefferson on 06-09-2022 Potassium [Moles/Vol]3.8 mmol/L3.5-5.1FGerman Hospitalerum or plasma sodium measurement (moles/volume)Ordered By: Julieta Jefferson on 06-09-2022 Sodium [Moles/Vol]137 mmol/U541-539WzkxepdmjRegional Medical Centererum or plasma total bilirubin measurement (mass/volume)Ordered By: Julieta Jefferson on 17-48-1370Bsxkqbret [Mass/Vol]0.3 mg/dL0.3-1.2FRegency Hospital Cleveland East Serum or plasma total cholesterol/high density lipoprotein (HDL) cholesterol mass ratOrdered By: Julieta Jefferson on 50-05-2836Kgrwxckebqj.total/Cholesterol in HDL [Mass ratio]2.4 {ratio}<5.0Del[facility] HospitalTS DL <= 0.005 mIU/L QnOrdered By: Julieta Jefferson on 61-21-0165TJA Qn4.10 m[IU]/L0.45-5.33 [facility] HospitalTeardrop cell detectionOrdered By: Julieta Jefferson on 97-89-3525Tgqtilkfmg LM Ql (Bld)SlightDelaware County Hospital Triglyceride [Mass/volume] in Serum or PlasmaOrdered By: Julieta Jefferson on 10-68-7910Qsxwtpdvmlxm [Mass/Vol]45 mg/iJ08-081RewduzokmDelaware County Hospital Comment on above:TRIG ATP III CLASSIFICATIONTRIG less than 150 mg/dL NormalTRIG 150-199 mg/dL Borderline highTRIG 200-500 mg/dL High TRIG greater than 500 mg/dL Very highStandard traceable to the Center for Disease Conrtrol and Prevention (CDC) test method.Urea nitrogen [Mass/volume] in Serum or PlasmaOrdered By: Julieta Li on 42-83-9700Qazq nitrogen [Mass/Vol]6 mg/dL9-[facility] HospitalWBC Auto (Bld) [#/Vol]Ordered By: Julieta Jefferson on 71-13-9179ODY (Bld) [#/Vol]4.6 10*3/uL3.8-11.6FRegency Hospital Cleveland EastUrine 10 SGon 19-55-0900Vhnvxkn DL <= 20 mg/L (U) [Mass/Vol]NegativeNoK Spine Other pH (U)7.0 [pH][employer] Other Urine 10 SGNegativeFlyReadyJet Other urine 10 SG1.020NoK Spine Other urine 10 SGlargeK Spine Other Urine Cultureon 07-67-3134Lwawnkpl identified Cx Nom (U)[employer] Other urine culture routineOrdered By: Amanda Ford on 69-44-5064Pdzrjivx identified Cx Nom (U)2 DaysDelaware County HospitalActivated partial thromboplastin time (aPTT) in platelet poor plasma by coagulation aOrdered By: Phu Hdz on 87-62-5605bEAI Coag (PPP) [Time] 30.4 s25.1-36.5FRegency Hospital Cleveland EastAutomated erythrocytes count in urine sediment (number/area)Ordered By: Jean Jett on 71-37-7159WBK Auto (Urine sed) [#/Area]Innumerable [HPF]0-4FRegency Hospital Cleveland East Automated leukocytes count in urine sediment (number/area)Ordered By: Jean Jett on 26-42-5737WZY Auto (Urine sed) [#/Area]3-4 [HPF]0-4FRegency Hospital Cleveland EastAutomated urine sediment calcium oxalate crystal count by microscopy (number/high powOrdered By: Jean Jett on 28-44-7903Ntqobkx oxalate crystals LM.HPF (Urine sed) [#/Area]1+ [HPF][facility] Basophils Auto (Bld) [#/Vol]Ordered By: Jean Jett on 88-46-7549Jmjwbdpgg (Bld) [#/Vol]0.0 10*3/uL0.0-0.2FRegency Hospital Cleveland EastBasophils/100 WBC Auto (Bld)Ordered By: Jean Jett on 97-34-3335Rzvugdnpj/100 WBC (Bld)0.5 % .[facility] HospitalBilirubin Test strip Ql (U)Ordered By: Jean Jett on 80-30-0129Vilkbmwho Ql (U)1+NegativeDelaware County Hospital Casts typing in urine sediment by light microscopyOrdered By: Jean Jett on 38-61-1145Ygrts LM Nom (Urine sed)None seen [LPF]None SeenDelaware County HospitalColor Auto (U)Ordered By: Jean Jett on 72-04-8126Svmzb (U)Red YellowDelaware County HospitalCreatinine and Glomerular filtration rate.predicted panel (S/P/Bld)Ordered By: Jean Jett on 04-02-6396Vaplbpdavj [Mass/Vol]0.68 mg/dL0.44-1.03Del[facility] HospitalEosinophils Auto (Bld) [#/Vol]Ordered By: Jean Jett on 97-90-5085Wopvtpzjyfq (Bld) [#/Vol]0.2 10*3/uL0.0-0.45Del[facility] HospitalEosinophils/100 WBC Auto (Bld) Ordered By: Jean Jett on 15-20-3123Eoxdxoybsfi/100 WBC (Bld)2.1 %.[facility] HospitalErythrocyte distribution width Auto (RBC) [Ratio]Ordered By: Jean Jett on 46-79-7651Effwkxlcqgd distribution width (RBC) [Ratio]14.3 % 11.9-15.3FRegency Hospital Cleveland EastEstimated glomerular filtration rate (GFR) non- AmericanOrdered By: Jean Jett on 20-16-7299YRY/1.73 sq M.predicted among non-blacks MDRD (S/P/Bld) [Vol rate/Area]> 60 mL/MinDelaware County HospitalHC ( test) IA.rapid Ql (U)Ordered By: Jean Jett on 91-26-6505YAX ( test) Ql (U)NegativeDelaware County HospitalHematocrit Auto (Bld) [Volume fraction]Ordered By: Jean Jett on 74-36-1551Hncupfgcul (Bld) [Volume fraction]29.4 %34.0-46.4FRegency Hospital Cleveland EastHemoglobin [Mass/volume] in BloodOrdered By: Jean Jett on 09-83-7014Nkzhnpcwhf (Bld) [Mass/Vol]9.9 g/dL11.8-15.4FRegency Hospital Cleveland EastKetones Auto test strip (U) [Mass/Vol]Ordered By: Jean Jett on 32-14-7263Gqlvyli (U) [Mass/Vol]NegativeNegativeDelaware County HospitalLaboratory - CoagulationOrdered By: Phu Hdz on 06-90-7040PK Coag (PPP) [Time]12.4 s9.0-12.9Del[facility] HospitalLaboratory - UrinalysisOrdered By: Jena Jett on 19-25-6428Zdqlcff casts LM Ql (Urine sed) None seen [LPF]0-8[facility] HospitalLeukocytes [#/volume] corrected for nucleated erythrocytes in Blood by Automated counOrdered By: eJan Jett on 16-50-7201IGH corrected for nucl RBC Auto (Bld) [#/Vol]8.5 10*3/uL3.8-11.6FRegency Hospital Cleveland EastLymphocytes Auto (Bld) [#/Vol] Ordered By: Jean Jett on 10-19-5998Zzaesairzop (Bld) [#/Vol]2.1 10*3/uL 1.00-4.8[facility] HospitalLymphocytes/100 WBC Auto (Bld)Ordered By: Jean Jett on 90-37-2722Uyvfeqejyib/100 WBC (Bld)25.2 %.[facility] Auto (RBC) [Entitic mass]Ordered By: Jean Jett on 25-19-2045PTZ (RBC) [Entitic mass]28.8 pg24.7-34.3FMercy Health Fairfield HospitalHC Auto (RBC) [Mass/Vol]Ordered By: Jean Jett on 94-74-0105XSPM (RBC) [Mass/Vol]33.6 g/dL32.0-35.0[facility] HospitalMCV Auto (RBC) [Entitic vol]Ordered By: Jean Jett on 25-74-5841QEP (RBC) [Entitic vol]85.7 mD97-106IhbdpagldDelaware County HospitalMonocyte distribution width [Entitic volume] in Blood by AutomatedOrdered By: Jean Jett on 06-30-7756Cfaivbbf distribution width Auto (Bld) [Entitic vol]14.20 %0.00-20.00[facility] HospitalMonocytes Auto (Bld) [#/Vol]Ordered By: Jean Jett on 04-10-2022 Monocytes (Bld) [#/Vol]0.5 10*3/uL0.0-0.8[facility] Monocytes/100 WBC Auto (Bld)Ordered By: Jean Jett on 29-63-9377Pxcqkeuiv/100 WBC (Bld)5.7 %.[facility] HospitalNeutrophils Auto (Bld) [#/Vol] Ordered By: Jean Jett on 25-94-3952Rllqwnzvnvd (Bld) [#/Vol]5.6 10*3/uL 1.8-7.7FRegency Hospital Cleveland EastNeutrophils/100 WBC Auto (Bld)Ordered By: Jean Jett on 98-13-4534Wlxbdvyhkfo/100 WBC (Bld)66.5 %.[facility] HospitalNitrite Test strip Ql (U)Ordered By: Jean Jett on 04-10-2022 Nitrite Ql (U)PositiveNegativeDelaware County HospitalNo Panel InformationOrdered By: Jean Jett on 71-43-1075Rhggtsqwo GFR ()> 60 mL/MinDelaware County HospitalComment on above:GFR estimated reference range: According to KDOQI guidelines, <60 ml/min/1.73m2 is sufficient todiagnose a patient with chronic kidney disease.Pharmacy Creatinine Clearance (Nrlr645.39Del[facility] HospitalNucleated erythrocytes [Presence] in Blood by Automated countOrdered By: Jean Jett on 04-10-2022 Nucleated RBC Auto Ql (Bld)0.0 /100{WBC}0-0.5FRegency Hospital Cleveland East Platelet mean volume Auto (Bld) [Entitic vol]Ordered By: Jean Jett on 52-08-2800Nlrgpxke mean volume (Bld) [Entitic vol]6.9 fL6.3-10.7FRegency Hospital Cleveland EastPlatelet poor plasma international normalized ratio (INR) by coagulation assay (relatOrdered By: Phu Hdz on 79-76-9815IYP Coag (PPP) [Relative time]1.1 {INR}[facility] HospitalComment on above: INR Therapeutic Range A) Pre- and Peroperative OAT started two weeks before surgery. NOT HIP SURGERY: 1.5 - 2.5 HIP SURGERY: 2 - 3B) Primary and secondary prevention of venous THROMBOSIS: 2 - 3C) Active venous thrombosis, pulmonary embolismand prevention of recurrent venous thrombosis: 2 - 3D) Prevention of arterial thromboembolismincluding patients with mechanical heart valves: 3 - 4.5 Platelets Auto (Bld) [#/Vol]Ordered By: Jean Jett on 97-51-1123Ozvrkawkt (Bld) [#/Vol]263 10*3/xN543-858VjdsmqauqDelaware County HospitalProtein Auto test strip (U) [Mass/Vol]Ordered By: Jean Jett on 32-77-1393Yfpejyr (U) [Mass/Vol]100 mg/dLNegativeDelaware County HospitalRBC Auto (Bld) [#/Vol]Ordered By: Jean Jett on 89-69-1979SUO (Bld) [#/Vol]3.43 10*6/uL 3.60-5.00[facility] Medical Centererum or plasma anion gap determinationOrdered By: Jean Jett on 07-53-0870Kcxxk gap [Moles/Vol]8.5 mmol/L6.0-15.0[facility] Medical Centererum or plasma calcium measurement (mass/volume)Ordered By: Jean Jett on 50-79-1969Noksjaq [Mass/Vol]8.6 mg/dL8.2-10.2FGerman Hospitalerum or plasma chloride measurement (moles/volume)Ordered By: Jean Jett on 04-10-2022 Chloride [Moles/Vol]106 mmol/Z81-222NlyuurbevRegional Medical Centererum or plasma glucose measurement (mass/volume)Ordered By: Jean Jett on 04-10-2022 Glucose [Mass/Vol]99 mg/lX11-590ZvxamiycnDelaware County HospitalComment on above:ADA recommended reference rangeRandom Glucose Reference Range is dependent on time and content of last meal. Glucose of more than 200 mg/dL in a nonstressed, ambulatory subject supports the diagnosisof Diabetes Mellitus.Serum or plasma potassium measurement (moles/volume)Ordered By: Jean Jett on 20-30-8770Uvfazdlbv [Moles/Vol]3.6 mmol/L3.5-5.1FGerman Hospitalerum or plasma sodium measurement (moles/volume)Ordered By: Jean Jett 52-90-1602Jgnrxx [Moles/Vol]138 mmol/H216-829LwtmbbdxlRegional Medical Centererum or plasma total carbon dioxide measurement (moles/volume)Ordered By: Jean Jett on 61-15-6695EL5 [Moles/Vol]27.1 mmol/L22.0-30.0Reg[facility] Medical Centererum or plasma urea nitrogen measurement (mass/volume)Ordered By: Jean Jett 59-36-1789Bmuh nitrogen [Mass/Vol]5 mg/dL9-23Regional Medical Centerpecific gravity Auto test strip (U) [Rel density]Ordered By: Jean Jett on 83-18-4506Irpocbnf gravity (U) [Rel density]1.0331.001-1.030 [facility] Centerquamous epithelial cells detection in urine sediment by light microscopyOrdered By: Jean Jett on 30-28-0143Kafpiivuox cells.squamous LM Ql (Urine sed)3-4 [HPF]0-2FRegency Hospital Cleveland East Urine bacteria detection by automated methodOrdered By: Jean Jett on 12-06-3014Wlyrzlcv Auto Ql (U)None seenNone SeenDelaware County HospitalUrine clarity by refractometry automatedOrdered By: Jean Jett on 71-38-6018Cdcmtss Refractometry automated (U)TurbidClearFRegency Hospital Cleveland EastUrine culture routineOrdered By: Jean Jett on 04-10-2022 Bacteria identified Cx Nom (U)2 DaysDelaware County HospitalUrine glucose measurement by automated test strip (mass/volume)Ordered By: Jean Jett on 32-74-8292Gemzngr Auto test strip (U) [Mass/Vol]Normal mg/dLParkview HealthUrine hemoglobin detection by automated test stripOrdered By: Jean Jett on 04-03-8663Wmbfbshqie Auto test strip Ql (U)3+ NegativeDelaware County HospitalUrine leukocyte esterase detection by automated test stripOrdered By: Jean Jett on 47-62-2808Pvtzpohok esterase Auto test strip Ql (U)2+NegativeDelaware County HospitalUrine sediment crystal identification by light microscopyOrdered By: Jean Jett on 04-10-2022 Crystals LM Nom (Urine sed)None seen [HPF][facility] Urobilinogen Auto test strip (U) [Mass/Vol]Ordered By: Jean Jett on 60-83-8907Oelladkswzrj (U) [Mass/Vol]Normal mg/dLBlanchard Valley Health SystemWBC Auto (Bld) [#/Vol]Ordered By: Jean Jett on 58-17-5735GLA (Bld) [#/Vol]8.5 10*3/uL3.8-11.6FRegency Hospital Cleveland EastpH Auto test strip (U)Ordered By: Jean Jett on 63-96-6160lU (U)5.5 [pH]5.0-9.0[facility] HospitalBasophils Auto (Bld) [#/Vol]Ordered By: PROVIDER TEMP on 38-50-0233Ybujxazfq (Bld) [#/Vol]0.0 10*3/uL0.0-0.2FRegency Hospital Cleveland EastBasophils/100 WBC Auto (Bld)Ordered By: PROVIDER TEMP on 04-08-2022 Basophils/100 WBC (Bld)0.4 %.[facility] HospitalEosinophils Auto (Bld) [#/Vol]Ordered By: PROVIDER TEMP on 40-56-5774Ossdcuvlqve (Bld) [#/Vol]0.4 10*3/uL0.0-0.45[facility] HospitalEosinophils/100 WBC Auto (Bld) Ordered By: PROVIDER TEMP on 13-14-2171Qcdujzdqxah/100 WBC (Bld)5.5 %.[facility] HospitalErythrocyte distribution width Auto (RBC) [Ratio]Ordered By: PROVIDER TEMP on 35-22-6286Nryoyvqamug distribution width (RBC) [Ratio]14.1 %11.9-15.3FRegency Hospital Cleveland EastHematocrit Auto (Bld) [Volume fraction]Ordered By: PROVIDER TEMP on 29-19-3421Bznvtooffr (Bld) [Volume fraction]33.9 %34.0-46.4FRegency Hospital Cleveland EastHemoglobin [Mass/volume] in BloodOrdered By: PROVIDER TEMP on 83-22-3350Tmqvygnrwp (Bld) [Mass/Vol]11.4 g/dL11.8-15.4FRegency Hospital Cleveland EastLeukocytes [#/volume] corrected for nucleated erythrocytes in Blood by Automated coun Ordered By: PROVIDER TEMP on 57-58-3354ERU corrected for nucl RBC Auto (Bld) [#/Vol]8.1 10*3/uL3.8-11.6FRegency Hospital Cleveland EastLymphocytes Auto (Bld) [#/Vol]Ordered By: PROVIDER TEMP on 33-21-1138Sgjpitsrbqo (Bld) [#/Vol]2.3 10*3/uL1.00-4.8[facility] HospitalLymphocytes/100 WBC Auto (Bld) Ordered By: PROVIDER TEMP on 91-58-1799Wbpjdzokmrx/100 WBC (Bld)28.1 %.[facility] HospitalMCH Auto (RBC) [Entitic mass]Ordered By: PROVIDER TEMP on 27-36-7245URA (RBC) [Entitic mass]29.0 pg24.7-34.3FRegency Hospital Cleveland EastMCHC Auto (RBC) [Mass/Vol]Ordered By: PROVIDER TEMP on 51-70-5276SMQD (RBC) [Mass/Vol]33.7 g/dL32.0-35.0[facility] HospitalMCV Auto (RBC) [Entitic vol]Ordered By: PROVIDER TEMP on 79-95-6184PTQ (RBC) [Entitic vol]86.0 bX19-791KfbsazzkdDelaware County HospitalMonocyte distribution width [Entitic volume] in Blood by AutomatedOrdered By: PROVIDER TEMP on 04-08-2022 Monocyte distribution width Auto (Bld) [Entitic vol]13.83 %0.00-20.00[facility] HospitalMonocytes Auto (Bld) [#/Vol]Ordered By: PROVIDER TEMP on 14-41-0877Wmoaefkxv (Bld) [#/Vol]0.5 10*3/uL0.0-0.8[facility] HospitalMonocytes/100 WBC Auto (Bld)Ordered By: PROVIDER TEMP on 04-08-2022 Monocytes/100 WBC (Bld)6.7 %.[facility] HospitalNeutrophils Auto (Bld) [#/Vol]Ordered By: PROVIDER TEMP on 86-11-5890Xbltrhayvwn (Bld) [#/Vol]4.8 10*3/uL1.8-7.7FRegency Hospital Cleveland EastNeutrophils/100 WBC Auto (Bld) Ordered By: PROVIDER TEMP on 20-13-9809Xbtwgieuguo/100 WBC (Bld)59.3 %.[facility] HospitalNucleated erythrocytes [Presence] in Blood by Automated countOrdered By: PROVIDER TEMP on 27-26-6431Cgszwvdqf RBC Auto Ql (Bld)0.2 /100{WBC}0-0.5FRegency Hospital Cleveland EastPlatelet mean volume Auto (Bld) [Entitic vol]Ordered By: PROVIDER TEMP on 50-48-4313Ioiogcey mean volume (Bld) [Entitic vol]7.0 fL6.3-10.7FRegency Hospital Cleveland EastPlatelets Auto (Bld) [#/Vol]Ordered By: PROVIDER TEMP on 79-78-0275Czrlytqgq (Bld) [#/Vol]199 10*3/uL 150-450[facility] HospitalRBC Auto (Bld) [#/Vol]Ordered By: PROVIDER TEMP on 44-35-0331MTA (Bld) [#/Vol]3.94 10*6/uL3.60-5.00[facility] HospitalWBC Auto (Bld) [#/Vol]Ordered By: PROVIDER TEMP on 19-48-5854LGH (Bld) [#/Vol]8.1 10*3/uL3.8-11.6FRegency Hospital Cleveland East XR shoulder RT min 2V*on 55-64-9683HD shoulder RT min 2V*[facility] [employer] Other XR shoulder RT min 2V*[facility] [employer] Other XR shoulder RT min 2V*[address] [place] [address] [employer] Other XR shoulder RT min 2V*[place] [address] [employer] Other XR shoulder RT min 2V*[facility] [employer] Other XR shoulder RT min 2V*[facility] [employer] Other XR shoulder RT min 2V*Patient: Jaz Sanders MR#: [id number] [employer] Other XR shoulder RT min 2V*9782Peck [employer] Other XR shoulder RT min 2V*: 1995 Acct:[id number] [employer] Other XR shoulder RT min 2V*Age/Sex: 27 / F ADM Date: 03/23/22Peck [employer] Other XR shoulder RT min 2V*[facility]: Type: REG I [employer] Other XR shoulder RT min 2V*Attending Dr: Amanda Ford APRN, [facility] [employer] Other XR shoulder RT min 2V*Copies to: Amanda Ford APRN, [facility] [employer] Other XR shoulder RT min 2V*Ordering Provider: Amanda Ford APRN, [facility] [employer] Other XR shoulder RT min 2V*Date of Service: 03/23/22Peck [employer] Other XR shoulder RT min 2V* XR/XR shoulder RT min 2V*: Other chronic pain;Pain in right shoulderPeck [employer] Other XR shoulder RT min 2V*RIGHT SHOULDER - - 3 viewsPeck [employer] Other XR shoulder RT min 2V*CLINICAL HISTORY: Pain lateral to right shoulder for 6 months.[employer] Other XR shoulder RT min 2V*COMPARISON: [facility] [employer] Other XR shoulder RT min 2V*FINDINGS:[employer] Other XR shoulder RT min 2V*Minimal degenerative changes of the right AC joint. Glenohumeral joint is grossly unremarkable. [facility] [employer] Other XR shoulder RT min 2V*acute bony process.Peck [employer] Other XR shoulder RT min 2V* XR/XR shoulder RT min 2V*[employer] Other XR shoulder RT min 2V*IMPRESSION:[employer] Other XR shoulder RT min 2V*MINIMAL DEGENERATIVE CHANGES. NO ACUTE BONY PROCESS.[employer] Other XR shoulder RT min 2V*Impression dictated by: Sravan Dickinson Jr., D.O.03/23/2022 4:06 [facility] [employer] Other XR shoulder RT min 2V*Dictation Location: [address] [employer] Other XR shoulder RT min 2V*Transcribed By: [facility] 03/23/22 [facility] [employer] Other xr shoulder RT min 2V*Dictated By: Sravan Dickinson Jr DO 03/23/[address] [place] [address] [employer] Other xr shoulder RT min 2V*Signed By:Peck [employer] Other xr shoulder RT min 2V*03/23/22 [facility] [employer] Other Coding Summary.on 61-12-1303Bfeywj Summary. CD:[id number]:[id number]+PGhlYWQ+MO0ASPHgG10twMCtbM7BP1nVTL3SSBHNCOWIJE3XKE2sx IV1RQecA4XtadBd [file] cHNl (more content not included)...[facility] CincinnatiHeart and Vascular Office/Clinic Noteon 15-50-7559Lpxnx and Vascular Office/Clinic Note Chief Complaint Testing [...] if she has Pee's. She has followed withendocrinology in the past and took levothyroxine. Review [...] after patient or guardian consented to allow [employer] to record this visit. ANAMARIA customer experience specialist and provider reviewed before signing. ANAMARIA: [...] a day (at bedtime), PRN, 2 refills, Nottaking: did not help Vitamin D2 2000 intl units oral capsule ziprasidone 80 mg Cap, 80 mg= 1 cap(s), Oral, BID, 2 refills Allergies No Known Medication Allergies Social History Tobacco Never (less than 100 in lifetime) Tobacco Use:. Never Smokeless Tobacco Use:., 03/12/2020 Family History Bipolar: Sister. Depression: Mother and Grandparent.[facility] Hospital - CincinnatiComment on above:Result Comment: Electronically Signed By: Jay DAVEY, Samir Rivera\.br\Date and Time Signed: 09/02/21 09:25 EDT\.br\Electronically Co-Signed By: Rissa Arias\.br\Date and Time Co-Signed: 09/01/21 17:11 EDTCoding Summary.on 96-95-6119Ylichn Summary. CD:[id number]:6638571EQc9cFc+PGhlYWQ+IY5XVGJsV09psHBvbG5PR1wQPC2TOKNNSSCROB3RNS6rm PR1XOixQ3PrpqSr [file] cHNl (more content not included)...[facility] - CincinnatiConsent for Treatmenton 95-57-9322Klciaqx for Treatment [id number]#1.00CD:127[facility] CincinnatiProgress Note-Physicianon 03-06-2947Ewtblkjd Note-Physician [id number]#1.00CD:127NoParma Community General HospitalHolter Monitoron 20-22-6102Pbkteu Xfuncsm27-EPOF HOLTER MONITOR ORDERING PHYSICIAN: Samir Thompson M.D. INTERPRETING PHYSICIAN: Mariam Salazar M.D. TEST DATE: 08/06/2021 REPORT DATE: [...] 4. No diary turned in. READ BY: Mariam Salazar M.D. ls Dictated: 08/26/2021 [id number] Transcribed: 08/27/2021 cc:Samir Thompson M.D.[facility] Hospital - CincinnatiComment on above: Result Comment: Electronically Signed By: Martin DAVEY, Mariam Galan\.br\Date and Time Signed: 08/27/21 10:21 EDTHolter Monitor [id number]#1.00CD:127NoParma Community General HospitalConsent for Treatmenton 55-67-1908Vxohuxd for Treatment [id number]#1.00CD:127NoParma Community General HospitalCoding Summary.on 69-37-8052Wubiiz Summary. CD:889100WJ:[id number]+PGhlYWQ+NB1ALHMvI80acLVopW7LA8pDHO4GYXQWIWAAVC5UEC4ia PJ4ENmdM2CmdfIq [file] cHNl (more content not included)...NormalProtestant Hospitaltre EKG Tracingson 36-95-5587Oayyhk EKG Tracings [id number]#1.00CD:127[facility] - CincinnatiConsent for Treatmenton 75-28-7262Snszekp for Treatment [id number]#1.00CD:127[facility] - CincinnatiCoding Summary.on 86-00-0893Lzdceo Summary. CD:874700GD:[id number]+PGhlYWQ+VJ9VUKXbV84dmXSxtD0VB3jYNF9WJSRMYWDHDE2EPR4fa YL6NClqF6WlcnDo [file] cHNl (more content not included)...[facility] CincinnatiProgress Note-Physicianon 13-39-4181Ndlxpecb Note-Physician [id number]#1.00CD:127NoParma Community General HospitalHeart and Vascular Office/Clinic Noteon 63-51-6687Zndlc and Vascular Office/Clinic NoteChief Complaint Bradycardia History of Present Illness Jaz Sanders presents today for a new patient evaluation of bradycardia. She states that she underwent weight-loss surgery in 04/2020 and has lost close to 250 pounds. Prior to surgery, her restingheart rate ranged from 120 to 130 BPM. Currently, her average heart rate is approximately 45 BPM. She notes that her heart rate increases with exercise. [facility] for suspected nephrolithiasis and states that her heart rate was 36 BPM during the 3 hours that she was there. She had a thyroid ultrasound recently that showed an enlarged thyroid; however, her thyroid labs, including thyroid antibodies, were within normal limits. She denies a history of Pee's. Le vothyroxine is the only medication that she currently [...] after patient or guardian consented to allow [employer] to record this visit. ANAMARIA customer experience specialist and provider reviewed before signing. ANAMARIA: [...] a day (at bedtime), PRN, 2 refills, Nottaking: did not help Vitamin D2 2000 intl units oral capsule ziprasidone 80 mg Cap, 80 mg= 1 cap(s), Oral, BID, 2 refills Allergies No Known Medication Allergies Social History Tobacco Never (less than 100 in lifetime) Tobacco Use:. Never Smok[place] (more content not included)...[facility] - CincinnatiComment on above:Result Comment: Electronically Signed By: Jay DAVEY, Samir Rivera\.br\Date and Time Signed: 07/27/21 10:44 EDT\.br\Electronically Co-Signed By: Rissa Arias\.br\Date and Time Co-Signed: 07/24/21 16:24 EDTConsent for Treatmenton 07-77-5545Mqcmhye for [id number]#1.00CD:[address] [place], [place] [address]Referrals Officeon 71-22-0342Hdcjfmgkv Office [id number]#1.00CD:[address] [place], [place] [address]BASIC METABOLIC PANELon 25-67-1123Jtwxp gap [Moles/Vol]8 mmol/LLow9 - 17 mmol/LMercy Health- [place], KYBun/Cre RatioNOT REPORTEDMercy Health- [place], KYCalcium [Mass/Vol]9.2 mg/dL8.6 - 10.4 mg/dLMercy Health- [place], KYChloride [Moles/Vol]105 mmol/L98 - 107 mmol/LMercy Health- [place], KYCO2 [Moles/Vol]26 mmol/L20 - 31 mmol/L [facility]- [place], KYCreatinine [Mass/Vol]0.67 mg/dL0.5 - 0.9 mg/dLMercy Health- [place], KYGFR >60>60 mL/minMercy Health- [place], KYGFR Non->60>60 mL/minMercy Health- [place], KYGFR/1.73 sq M predicted among non- blacks MDRD (S/P/Bld) [Vol rate/Area]NOT REPORTEDMercy Health- [place], KYGFR/1.73 sq M predicted among non-blacks MDRD (S/P/Bld) [Vol rate/Area][facility]- [place], [place] Comment on above:Average GFR for 20-29 years old: 116 mL/min/1.73sq m Chronic Kidney Disease: <60 mL/min/1.73sq m Kidney failure: <15 mL/min/1.73sq m eGFR calculated using average adult body mass. Additional eGFR calculator available at: http://www.TESARO/multiple_crcl_2012.htm Glucose [Mass/Vol]99 mg/dL70 - 99 mg/dLRegency Hospital Cleveland East, KYInterpretation and review of laboratory resultsAbnormalRegency Hospital Cleveland East, KYPotassium [Moles/Vol]4.5 mmol/L3.7 - 5.3 mmol/LMSCCI Hospital Lima, KYSodium [Moles/Vol]139 mmol/L135 - 144 mmol/[facility], KYUrea nitrogen [Mass/Vol]5 mg/dLLow6 - 20 mg/dLRegency Hospital Cleveland East, KYBasic Metabolic Profon 05-08-2020(cont.)[facility] HospitalComment on above:Result Comment: Average GFR for 20-29 years old: 116 mL/min/1.73sq m Chronic Kidney Disease: <60 mL/min/1.73sq m Kidney failure: <15 mL/min/1.73sq m eGFR calculated using average adult body mass. Additional eGFR calculator available at: http://www.TESARO/multiple_crcl_2012.htmPerformed By: #### CBC, PT, PTT, BMP #### [facility] [address] [place] [address] Building Construction Foreman: Casey Marques MD #### RICKYT #### [facility] [address] [place] [address] Building Construction Foreman: Dontae Ward gap [Moles/Vol]8 mmol/LLow9-17[facility]ron CampusComment on above:Performed By: #### CBC, PT, PTT, BMP #### [facility] [address] [place] [address] Building Construction Foreman: Casey Marques MD #### RICKYT #### [facility] [address] [place] [address] Building Construction Foreman: XIN Wardalcium [Mass/Vol]9.2 mg/dLNormal8.6-10.4Sum[facility] Akron CampusComment on above:Performed By: #### CBC, PT, PTT, BMP #### [address] [id number] Building Construction Foreman: Casey Marques MD #### ANICOT #### [facility] [address] [place] [address] Building Construction Foreman: XIN Wardhloride [Moles/Vol]105 mmol/QQotfgc27-013XkizfSumma Health Akron CampusComment on above:Performed By: #### CBC, PT, PTT, BMP #### [address] [id number] Building Construction Foreman: Casey Marques MD #### ANICOT #### [facility] [address] [place] [address] Building [employer] Foreman: Adolph Diaz MDCO2 [Moles/Vol]26 mmol/YWpzepl03-01QbmblSumma Health Akron CampusComment on above:Performed By: #### CBC, PT, PTT, BMP #### [address] [id number] Building Construction Foreman: Casey Marques MD #### ANICOT #### [facility] [address], [place] [id number] Building Construction Foreman: XIN Wardreatinine [Mass/Vol]0.67 mg/dLNormal0.50-0.90 [facility] Akron CampusComment on above:Performed By: #### CBC, PT, PTT, BMP #### [facility] [address] [place] [address] [id number] Building [employer] Foreman: Casey Marques MD #### ANICOT #### [facility] [address] [place] [address] Building Construction Foreman: Adolph Diaz MDGFR, Amer>60Normal>60[facility] HospitalComment on above:Performed By: #### CBC, PT, PTT, BMP #### [facility] [address] [place] [address] Building Construction Foreman: Casey Marques MD #### ANICOT #### [facility] [address], [place] [id number] Building Construction Foreman: Adolph Diaz MDGFR,non Amer>60Normal>60[facility] HospitalComment on above:Performed By: #### CBC, PT, PTT, BMP #### [facility] [address] [place] [address] [phone] Building Construction Foreman: Casey Marques MD #### ANICOT #### [facility] [address] [place] [address] [id number] Building Construction Foreman: Adolph Diaz MDGlucose [Mass/Vol]99 mg/wLHkdvgk24-48Nmktf [facility] Surgical HospitalComment on above:Performed By: #### CBC, PT, PTT, BMP #### [facility] [address] [place] [address] [id number] Building Construction Foreman: Casey Marques MD #### ANICOT #### [facility] [address] [place] [address] Building Construction Foreman: VERONICA Wardotassium [Moles/Vol]4.5 mmol/LNormal3.7-5.3[facility] Surgical HospitalComment on above:Performed By: #### CBC, PT, PTT, BMP #### [facility] [address] [place] [address] [id number] Building Construction Foreman: Casey Marques MD #### ANICOT #### [facility] [address] [place] [address] Building Construction Foreman: JACINTO Wardodium [Moles/Vol]139 mmol/OJmyden192-176IcouySumma Health Akron CampusComment on above:Performed By: #### CBC, PT, PTT, BMP #### [facility] [address] [place] [address] Building Construction Foreman: Casey Marques MD #### ANICOT #### [facility] [address], [place] [id number] Building Construction Foreman: Adolph Diaz MDUrea nitrogen [Mass/Vol]5 mg/dLLow6-20[facility] CampusComment on above:Performed By: #### CBC, PT, PTT, BMP #### [facility] [address] [place] [address] [id number] Building Construction Foreman: Casey Marques MD #### ANICOT #### [facility] [address], [place] [id number] Building Construction Foreman: Adolph Diaz MDBUN/CRE JiOT REPORTEDNormal9-20[facility] CampusComment on above:Performed By: #### CBC, PT, PTT, BMP #### [facility] [address] [place] [address] Building Construction Foreman: Casey Marques MD #### ANICOT #### [facility] [address], [place] [id number] Building Construction Foreman: JACINTO Wardtaging:NOT REPORTEDNormalSumma Health Akron CampusComment on above:Performed By: #### CBC, PT, PTT, BMP #### [facility] [address] [place] [address] Building Construction Foreman: Casey Marques MD #### ANICOT #### [facility] [address] [place] [address] Building Construction Foreman: XIN Ward WITH AUTO DIFFERENTIALon 39-53-5509Dpdnabyax (Bld) [#/Vol]0.06 10*3/[facility], KYBasophils/100 WBC (Bld)1 %0 - 2 % [facility], SCDifferential TypeNOT REPORTEDRegency Hospital [facility], KYEosinophils (Bld) [#/Vol]0.35 10*3/[facility], KYEosinophils/100 WBC (Bld)3 %1 - 4 %[facility], SCErythrocyte distribution width (RBC) [Ratio]14.7 %High11.8 - 14.4 %[facility], KYHematocrit (Bld) [Volume fraction]38.4 %36.3 - 47.1 %[facility], SCHemoglobin (Bld) [Mass/Vol]12.0 g/dL11.9 - 15.1 g/dLRegency Hospital Cleveland East, SCImmature granulocytes (Bld) [#/Vol]1 %Wz[address] [place] [address], [place] Immature granulocytes (Bld) [#/Vol]0.06 10*3/[facility], [place] Interpretation and review of laboratory resultsAbnormCleveland Clinic [facility]mount [facility], [place] Lymphocytes (Bld) [#/Vol]2.21 10*3/[facility], KYLymphocytes/100 WBC (Bld)21 %Low24 - 43 %[facility], SCMCH (RBC) [Entitic mass]26.5 pg25.2 - 33.5 pgRegency Hospital [facility] East, SCMCHC (RBC) [Mass/Vol]31.3 g/dL28.4 - 34.8 g/dLRegency Hospital Cleveland East, KYMCV (RBC) [Entitic vol]85.0 fL82.6 - 102.9 fLRegency Hospital Cleveland East, [place] Monocytes (Bld) [#/Vol]0.71 10*3/[facility], KYMonocytes/100 WBC (Bld)7 %3 - 12 %[facility], SCPlatelet mean volume (Bld) [Entitic vol]8.6 fL8.1 - 13.5 fLRegency Hospital Cleveland East, KYPlatelets (Bld) [#/Vol]256 10*3/[facility], KYPlatelets (Bld) [#/Vol]NOT REPORTEDTampa, KYRBC (Bld) [#/Vol]4.52 10*6/uL3.95 - 5.11 m/[facility], [facility] morphology finding Nom (Bld) ANISOCYTOSIS PRESENTRegency Hospital Cleveland East, [facility] Memorial Medical Centergmented neutrophils/100 WBC (Bld)67 % High36 - 65 %[place], KYSegs Absolute7.30[place], KYWBC (Bld) [#/Vol]10.7 10*3/uLRegency Hospital Cleveland East, SCWBC (Bld) [#/Vol]0.0 10*3/uL0.0 per 100 WBCRegency Hospital Cleveland East, [facility] MorphologyNOT REPORTEDSumma Health with Diffon 26-27-5306Txg. Basophil0.06 k/uLNormal0.00-0.20[facility] CampusComment on above:Performed By: #### CBC, PT, PTT, BMP #### [facility] [place], [place] [id number] Building Construction Foreman: Casey Marques MD #### RICKYT #### [facility] [address] [place] [address] Building Construction Foreman: Ashley Ward.Imm.Granulocyte0.06 k/uLNormal0.00-0.30[facility] CampusComment on above:Performed By: #### CBC, PT, PTT, BMP #### [facility] [address] [place], [place] 1467408 Building Construction Foreman: Casey Marques MD #### ANICOT #### [facility] [address] [place] [address] Building Construction Foreman: Ashley Ward.Neutrophil (Seg)7.30 k/uLNormal1.50-8.10Sum[facility] Health Akron CampusComment on above:Performed By: #### CBC, PT, PTT, BMP #### [facility] [address] [place] [address] Building [employer] Foreman: Casey Marques MD #### ANICOT #### [facility] [address] [place] [address] Building Construction Foreman: Adolph Diaz MDBasophils/100 WBC (Bld)1 %Normal0-2MercSutter Maternity and Surgery HospitalComment on above:Performed By: #### CBC, PT, PTT, BMP #### [facility] [address] [place] [address] Building [employer] Foreman: Casey Marques MD #### ANICOT #### [address] [phone] Building Construction Foreman: Adolph Diaz MDEosinophils (Bld) [#/Vol]0.35 10*3/uLNormal 0.00-0.44[facility] Ak[facility] CampusComment on above:Performed By: #### CBC, PT, PTT, BMP #### [address] [address] Building [employer] Foreman: Casey Marques MD #### ANICOT #### [address] [phone] Building Construction Foreman: Adolph Diaz MDEosinophils/100 WBC (Bld)3 %Normal1-4Sum[facility] Akron CampusComment on above:Performed By: #### CBC, PT, PTT, BMP #### [address] [address] Building Construction Foreman: Casey Marques MD #### ANICOT #### [address] [id number] Building Construction Foreman: Adolph Diaz MDErythrocyte distribution width (RBC) [Ratio]14.7 %High11.8-14.4[facility] Akron CampusComment on above:Performed By: #### CBC, PT, PTT, BMP #### [facility] [address] [place] [address] Building Construction Foreman: Casey Marques MD #### ANICOT #### [facility] [address] [place] [address] Building Construction Foreman: Adolph Diaz MDHematocrit (Bld) [Volume fraction]38.4 %Normal 36.3-47.1MKeck Hospital of USCComment on above:Performed By: #### CBC, PT, PTT, BMP #### [facility] [address] [place] [address] Building [employer] Foreman: Casey Marques MD #### ANICOT #### [facility] [address], [place] [phone] Building Construction Foreman: Adolph Diaz MDHemoglobin (Bld) [Mass/Vol]12.0 g/dLNormal 11.9-15.1MercSutter Maternity and Surgery HospitalComment on above:Performed By: #### CBC, PT, PTT, BMP #### [facility] [address] [place] [address] Building [employer] Foreman: Casey Marques MD #### ANICOT #### [facility] [address], [place] [address] Building Construction Foreman: Adolph Diaz MDImbrittany granulocytes/100 WBC (Bld)1 %Btbb1EcrpuHassler Health FarmComment on above:Performed By: #### CBC, PT, PTT, BMP #### [facility] [address] [place] [address] Building Construction Foreman: Casey Marques MD #### ANICOT #### [facility] [address], [place] [id number] Building Construction Foreman: Adolph Diaz MDLymphocytes (Bld) [#/Vol]2.21 10*3/uLNormal 1.10-3.70[facility] Akron CampusComment on above:Performed By: #### CBC, PT, PTT, BMP #### [address] [id number] Building [employer] Foreman: Casey Marques MD #### ANICOT #### [facility] [address], [place] [id number] Building Construction Foreman: Adolph Diaz MDLymphocytes/100 WBC (Bld)21 %Fid28-26QkkdrSumma Health Akron CampusComment on above:Performed By: #### CBC, PT, PTT, BMP #### [place] [address] Building Construction Foreman: Casey Marques MD #### ANICOT #### [address] [address] Building Construction Foreman: NIMCO Ward (RBC) [Entitic mass]26.5 vqLyajqk71.2-33.5 [facility] CampusComment on above:Performed By: #### CBC, PT, PTT, BMP #### [place] [address] Building Construction Foreman: Casey Marques MD #### ANICOT #### [facility] [address] [place] [address] [phone] Building Construction Foreman: NIMCO WardC (RBC) [Mass/Vol]31.3 g/gMYwgpnx99.4-34.8 [facility] CampusComment on above:Performed By: #### CBC, PT, PTT, BMP #### [place] [id number] Building Construction Foreman: Casey Marques MD #### ANICOT #### [facility] [address], [place] [id number] Building Construction Foreman: Adolph Diaz, MDMCV (RBC) [Entitic vol]85.0 oVDobejz00.6-102.9 [facility] CampusComment on above:Performed By: #### CBC, PT, PTT, BMP #### [address] [address] Building Construction Foreman: Casey Marques MD #### ANICOT #### [facility] [address] [place] [address] Building Construction Foreman: YESSICA Wardonocytes (Bld) [#/Vol]0.71 10*3/uLNormal 0.10-1.20[facility] CampusComment on above:Performed By: #### CBC, PT, PTT, BMP #### [address] [address] Building Construction Foreman: Casey Marques MD #### ANICOT #### [facility] [address] [place] [address] Building Construction Foreman: YESSICA Wardonocytes/100 WBC (Bld)7 %Normal3-12[facility] CampusComment on above:Performed By: #### CBC, PT, PTT, BMP #### [address] [address] Building Construction Foreman: Casey Marques MD #### ANICOT #### [facility] [address] [place] [address] Building Construction Foreman: Adolph Diaz MDNeutrophil (Seg)67 %Ubtz59-77VcfctSumma Health Akron CampusComment on above:Performed By: #### CBC, PT, PTT, BMP #### [address] [address] Building Construction Foreman: Casey Marques MD #### ANICOT #### [facility] [address] [place] [address] Building Construction Foreman: Adolph Diaz MDNRBC Automated0.0 per 100 WBCNormal0.0[facility] CampusComment on above:Performed By: #### CBC, PT, PTT, BMP #### [address] [address] Building Construction Foreman: Casey Marques MD #### ANICOT #### [facility] [address] [place] [address] Building Construction Foreman: Stephan Ward mean volume (Bld) [Entitic vol]8.6 fL Normal8.1-13.5[facility] CampusComment on above:Performed By: #### CBC, PT, PTT, BMP #### [address] [address] Building Construction Foreman: Casey Marques MD #### ANICOT #### [address] [address] Building Construction Foreman: Yajaira Ward (Bld) [#/Vol]256 10*3/gTFzcttz765-789 [facility] CampusComment on above:Performed By: #### CBC, PT, PTT, BMP #### [address] [address] Building Construction Foreman: Casey Marques MD #### ANICOT #### [facility] [address] [place] [address] Building Construction Foreman: MADDI WardBC (Bld) [#/Vol]4.52 10*6/uLNormal3.95-5.11[facility] CampusComment on above:Performed By: #### CBC, PT, PTT, BMP #### [address] [address] Building Construction Foreman: Casey Marques MD #### ANICOT #### [facility] [address] [place] [address] Building Construction Foreman: RAYMON Ward morphology finding Nom (Bld)ANISOCYTOSIS PRESENTSelect Medical OhioHealth Rehabilitation HospitalComment on above:Performed By: #### CBC, PT, PTT, BMP #### [facility] [address] [place] [address] Building Construction Foreman: Casey Marques MD #### ANICOT #### [facility] [address] [place] [address] Building Construction Foreman: DIEGO Ward (Bld) [#/Vol]10.7 10*3/uLNormal3.5-11.3[facility] Surgical HospitalComment on above:Performed By: #### CBC, PT, PTT, BMP #### [address] [address] Building Construction Foreman: Casey Marques MD #### ANICOT #### [facility] [address] [place] [address] Building Construction Foreman: Arnav Ward PerformedNOT REPORTEDNoMedina HospitalComment on above:Performed By: #### CBC, PT, PTT, BMP #### [facility] [address] [place] [address] Building Construction Foreman: Casey Marques MD #### ANICOT #### [facility] [address] [place] [address] Building Construction Foreman: Stephan Ward EstimateNOT REPORTEDrmUniversity Hospitals St. John Medical CenterComment on above:Performed By: #### CBC, PT, PTT, BMP #### [facility] [address] [place] [address] Building Construction Foreman: Casey Marques MD #### ANICOT #### [facility] [address] [place] [address] Building Construction Foreman: DIEGO Ward MorphologyNOT REPORTEDNormalSumma Health Akron CampusComment on above:Performed By: #### CBC, PT, PTT, BMP #### [facility] [address] [place] [address] [phone] Building Construction Foreman: Casey Marques MD #### ANICOT #### [facility] [address] [place] [address] Building Construction Foreman: JACINTO Wardurgical Pathologyon [id number] Pathology Report-- Diagnosis -- STOMACH, SLEEVE GASTRECTOMY: - MODERATE CHRONIC INACTIVE GASTRITIS. - NEGATIVE FOR ACTIVE GASTRITIS, INTESTINAL METAPLASIA OR DYSPLASIA. Aaron Saunders M.D. Electronically Signed Out /05/08/2020 Clinical Information Pre-op Diagnosis: MORBID OBESITY, HYPOTHYROID [...] with no areas of granularity or masses. Client Portfolio Manager sections 1cs. tm Microscopic Description Sections of gastric mucosa show increased lymphocytes and plasma cells in the lamina propria. There is no evidence of acute inflammation, intestinal metaplasia or dysplasia. There is no evidence of organisms suspicious for Helicobacter with the routine H&E stains. SURGICAL PATHOLOGY CONSULTATION Patient Name: JAZ SANDERS [facility] Rec: [id number] Path Number: [id number] ANATOMIC PATHOLOGY [address] [place] [address]. [place], [place] [id number] [facility]- [place], KYBasic Metabolic Panelon [id number] gap [Moles/Vol]13 mmol/L9 - 17 mmol/LMercy Health- [place], KYBun/Cre RatioNOT REPORTEDMercy Health- [place], KYCalcium [Mass/Vol]9.4 mg/dL8.6 - 10.4 mg/dLMercy Health- [place], KYChloride [Moles/Vol]104 mmol/L98 - 107 mmol/[facility], [place] CO2 [Moles/Vol]23 mmol/L20 - 31 mmol/[facility], KYCreatinine [Mass/Vol] 0.73 mg/dL0.5 - 0.9 mg/dLRegency Hospital [facility], KYGFR >60>60 mL/min [facility], KYGFR Non->60>60 mL/minRegency Hospital [place], [place] GFR/1.73 sq M predicted among non-blacks MDRD (S/P/Bld) [Vol rate/Area]NOT REPORTEDRegency Hospital [facility], KYGFR/1.73 sq M predicted among non-blacks MDRD (S/P/Bld) [Vol rate/Area][facility], KYComment on above:Average GFR for 20-29 years old: 116 mL/min/1.73sq m Chronic Kidney Disease: <60 mL/min/1.73sq m Kidney failure: <15 mL/min/1.73sq m eGFR calculated using average adult body mass. Additional eGFR calculator available at: http://www.TESARO/multiple_crcl_2011.htm Glucose [Mass/Vol]98 mg/dL70 - 99 mg/dLRegency Hospital [facility], KYPotassium [Moles/Vol] 4.1 mmol/L3.7 - 5.3 mmol/[facility], KYSodium [Moles/Vol]140 mmol/L135 - 144 mmol/[facility], KYUrea nitrogen [Mass/Vol]6 mg/dL6 - 20 mg/dLRegency Hospital [place] [facility], KYBasic Metabolic Profon 05-07-2020(cont.)[facility] Rehabilitation HospitalComment on above:Result Comment: Average GFR for 20-29 years old: 116 mL/min/1.73sq m Chronic Kidney Disease: <60 mL/min/1.73sq m Kidney failure: <15 mL/min/1.73sq m eGFR calculated using average adult body mass. Additional eGFR calculator available at: http://www.TESARO/multiple_crcl_2012.htmPerformed By: #### CBC, BMP #### [facility] [address] [place] [address] Building Construction Foreman: Casey Marques MDAnion gap [Moles/Vol]13 mmol/LNormal9-17[facility] CampusComment on above:Performed By: #### CBC, BMP #### [facility] [address] [place] [address] Building Construction Foreman: Casey Marques MDCalcium [Mass/Vol]9.4 mg/dLNormal8.6-10.4[facility] CampusComment on above:Performed By: #### CBC, BMP #### [facility] [address] [place] [address] Building Construction Foreman: Casey Marques MDChloride [Moles/Vol]104 mmol/EJqwdft38-113PbbqoSumma Health Akron CampusComment on above:Performed By: #### CBC, BMP #### [facility] [address] [place] [address] Building Construction Foreman: Casey Marques MDCO2 [Moles/Vol]23 mmol/UZudqxm91-68ZeocwSumma Health Akron CampusComment on above:Performed By: #### CBC, BMP #### [facility] [address] [place] [address] Building Construction Foreman: Casey Marques MDCreatinine [Mass/Vol]0.73 mg/dLNormal0.50-0.90 [facility] CampusComment on above:Performed By: #### CBC, BMP #### [facility] [address] [place] [address] Building Construction Foreman: SIRISHA Capellan,Slava Amer>60Normal>60[facility] CampusComment on above:Performed By: #### CBC, BMP #### [facility] [address] [place] [address] Building Construction Foreman: Casey Madoff, MDGFR,non Amer>60Normal>60[facility] CampusComment on above:Performed By: #### SAGRARIO, BMP #### [address] [address] Building Construction Foreman: Casey Marques MDGlucose [Mass/Vol]98 mg/pIDmgrlg32-86AzlcvKeck Hospital of USCComment on above:Performed By: #### SAGRARIO, BMP #### [facility] [address] [place] [address] Building Construction Foreman: VERONICA Capellanotassium [Moles/Vol]4.1 mmol/LNormal3.7-5.3 [facility] CampusComment on above:Performed By: #### SAGRARIO, BMP #### [place] [address] Building Construction Foreman: JACINTO Capellanodium [Moles/Vol]140 mmol/WCzxsvd229-631LyjseSumma Health Akron CampusComment on above:Performed By: #### SAGRARIO, BMP #### [place] [address] Building Construction Foreman: Casey Marques MDUrea nitrogen [Mass/Vol]6 mg/dLNormal6-20[facility] CampusComment on above:Performed By: #### SAGRARIO, BMP #### [address] [address] Building Construction Foreman: Casey Marques MDBUN/CRE RatioNOT REPORTEDNormal9-20[facility] CampusComment on above:Performed By: #### SAGRARIO, BMP #### [address] [address] Building Construction Foreman: JACINTO Capellantaging:NOT REPORTEDNormalSumma Health Akron CampusComment on above:Performed By: #### SAGRARIO, BMP #### [address] [address] Building Construction Foreman: Nacho Capellan 80-53-8657Jbwykbyocld distribution width (RBC) [Ratio]14.4 %Rbfhtg67.8-14.4[facility] CampusComment on above:Performed By: #### CBC, BMP #### [place] [address] Building Construction Foreman: Casey Marques MDHematocrit (Bld) [Volume fraction]40.4 %Normal 36.3-47.1MKeck Hospital of USCComment on above:Performed By: #### CBC, BMP #### [place] [address] Building Construction Foreman: Casey Marques MDHemoglobin (Bld) [Mass/Vol]12.6 g/dLNormal 11.9-15.1MKeck Hospital of USCComment on above:Performed By: #### CBC, BMP #### [place] [address] Building Construction Foreman: YESSICA CapellanCH (RBC) [Entitic mass]26.1 fdWcptvw75.2-33.5 [facility] CampusComment on above:Performed By: #### CBC, BMP #### [place] [address] Building Construction Foreman: YESSICA CapellanCHC (RBC) [Mass/Vol]31.2 g/nWLfduze84.4-34.8 [facility] CampusComment on above:Performed By: #### CBC, BMP #### [place] [address] Building Construction Foreman: YESSICA CapellanCV (RBC) [Entitic vol]83.8 bELpixhq24.6-102.9 [facility] CampusComment on above:Performed By: #### CBC, BMP #### [address] [address] Building Construction Foreman: Casey Marques MDNRBC Automated0.0 per 100 WBCNormal0.0[facility] CampusComment on above:Performed By: #### CBC, BMP #### [address] [address] Building Construction Foreman: Jose Capellantelet mean volume (Bld) [Entitic vol]8.7 fL Normal8.1-13.5[facility] CampusComment on above:Performed By: #### CBC, BMP #### [address] [address] Building Construction Foreman: VERONICA Capellanlatelets (Bld) [#/Vol]289 10*3/tDGixixi563-059 [facility] CampusComment on above:Performed By: #### CBC, BMP #### [address] [address] Building Construction Foreman: MADDI CapellanBC (Bld) [#/Vol]4.82 10*6/uLNormal3.95-5.11 [facility] CampusComment on above:Performed By: #### CBC, BMP #### [address] [address] Building Construction Foreman: Casey Marques MDWBC (Bld) [#/Vol]13.7 10*3/uLHigh3.5-11.3MKeck Hospital of USCComment on above:Performed By: #### CBC, BMP #### [address] [address] Building Construction Foreman: Casey Marques MDErythrocyte distribution width (RBC) [Ratio]14.4 %11.8 - 14.4 %[facility] KYHematocrit (Bld) [Volume fraction]40.4 %36.3 - 47.1 %[place], KYHemoglobin (Bld) [Mass/Vol]12.6 g/dL11.9 - 15.1 g/dL [place], KYInterpretation and review of laboratory resultsAbnormalTampa, KYMCH (RBC) [Entitic mass]26.1 pg25.2 - 33.5 pgTampa, [place] MCHC (RBC) [Mass/Vol]31.2 g/dL28.4 - 34.8 g/dLTampa, KYMCV (RBC) [Entitic vol]83.8 fL82.6 - 102.9 fLTampa, KYPlatelet mean volume (Bld) [Entitic vol]8.7 fL8.1 - 13.5 fLTampa, KYPlatelets (Bld) [#/Vol]289 10*3/[place], KYRBC (Bld) [#/Vol]4.82 10*6/uL3.95 - 5.11 m/[place], KYWBC (Bld) [#/Vol]0.0 10*3/uL0.0 per 100 WBCTampa, KYWBC (Bld) [#/Vol]13.7 10*3/uLHighTampa, KYFL ESOPHAGRAMon [id number] ESOPHAGRAMEXAMINATION: SINGLE CONTRAST ESOPHAGRAM 05/07/2020 HISTORY: ORDERING SYSTEM [...] Signed by: Petr Cullen MD 05/07/20 Final resultNoMedina HospitalEXAMINATION: SINGLE CONTRAST ESOPHAGRAM 05/07/2020 HISTORY: ORDERING SYSTEM PROVIDED HISTORY: sleeve TECHNOLOGIST PROVIDED HISTORY: sleeve Reason for Exam: Sleeve yesterday/ R/O leak/ 30 ml Omnipaque orally Acuity: Unknown Type of Exam: Unknown COMPARISON: None. TECHNIQUE: Multiple single contrast images of the esophagus and gastroesophageal junction were obtained following the oral administrationof water soluble contrast FLUOROSCOPY DOSE AND TYPE OR TIME AND EXPOSURES: 0.8 minute. Air kerma 276.82 mGy FINDINGS: Postsurgical changes from gastric sleeve. No obstruction. No extravasation of contrast.Centene CorporationNORTHEAST MISSOURI RURAL HEALTH NETWORKGerardo Mhpn Incoming Radiant Results From [facility] - 05/07/2020 10:04 AM EST EXAMINATION: SINGLE [...] of contrast. IMPRESSION: No extravasation of contrast. Centene CorporationNORTHEAST MISSOURI RURAL HEALTH NETWORKJacob extravasation of contrast.[facility] HospitalIPLocksNORTHEAST MISSOURI RURAL HEALTH NETWORKNORMAPOCT urine pregnancyon [id number] HCG ( test) Ql (U)NegativeNEGATIVEMagruder HospitaliDentiMobNORTHEAST MISSOURI RURAL HEALTH NETWORK, KYComment on above:Specimens with hCG levels near the threshold of the test (25 mIU/mL) may give a negative or indeterminate result. In such cases, another test should be performed with a new specimen in 48-72 hours. If early is suspected clinically in this setting, correlation with quantitative serum b-hCG level is suggested. Basic Metabolic Panelon [id number] gap [Moles/Vol]10 mmol/L9 - 17 mmol/L [facility] Warren HospitalIPLocks- [place], KYBun/Cre RatioNOT REPORTEDWilson Health [employer]- [place], KYCalcium [Mass/Vol]9.5 mg/dL8.6 - 10.4 mg/dLMagruder HospitaliDentiMob- [place], KYChloride [Moles/Vol]103 mmol/L98 - 107 mmol/LMercBon Secours Maryview [facility] Center- [place], KYCO2 [Moles/Vol]19 mmol/LLow20 - 31 mmol/LMSCCI Hospital Lima, KYCreatinine [Mass/Vol]0.9 mg/dL0.5 - 0.9 mg/dLRegency Hospital [facility], KYGFR >60>60 mL/minRegency Hospital [facility], KYGFR Non- >60>60 mL/minRegency Hospital [facility], KYGFR/1.73 sq M predicted among non-blacks MDRD (S/P/Bld) [Vol rate/Area]NOT REPORTEDRegency Hospital [place], [place] GFR/1.73 sq M predicted among non-blacks MDRD (S/P/Bld) [Vol rate/Area][facility], KYComment on above:Average GFR for 20-29 years old: 116 mL/min/1.73sq m Chronic Kidney Disease: <60 mL/min/1.73sq m Kidney failure: <15 mL/min/1.73sq m eGFR calculated using average adult body mass. Additional eGFR calculator available at: http://www.TESARO/[employer]_crcl_2011.htm Glucose [Mass/Vol]162 mg/eWGdda13 - 99 mg/dLRegency Hospital [facility], KYInterpretation and review of laboratory resultsAbnormalRegency Hospital [facility], KYPotassium [Moles/Vol]3.9 mmol/L3.7 - 5.3 mmol/[facility], KYSodium [Moles/Vol]132 mmol/YGju667 - 144 mmol/[facility], KYUrea nitrogen [Mass/Vol]10 mg/dL6 - 20 mg/dLRegency Hospital [facility], KYBasic Metabolic Profon 05-06-2020(cont.)[facility] HospitalComment on above:Result Comment: Average GFR for 20- 29 years old: 116 mL/min/1.73sq m Chronic Kidney Disease: <60 mL/min/1.73sq m Kidney failure: <15 mL/min/1.73sq m eGFR calculated using average adult body mass. Additional eGFR calculator available at: http://www.TESARO/multiple_crcl_2011.htmPerformed By: #### CBC, BMP #### [facility] [address] [place] [address] Building Construction Foreman: Casey Marques MDAnion gap [Moles/Vol]10 mmol/LNormal9-17[facility] CampusComment on above:Performed By: #### CBC, BMP #### [facility] [address] [place] [address] Building Construction Foreman: Casey Marques MDCalcium [Mass/Vol]9.5 mg/dLNormal8.6-10.4[facility] CampusComment on above:Performed By: #### CBC, BMP #### [facility] [address] [place] [address] Building Construction Foreman: Casey Marques MDChloride [Moles/Vol]103 mmol/IZvldrk65-617XbitrSumma Health Akron CampusComment on above:Performed By: #### CBC, BMP #### [facility] [address] [place] [address] Building Construction Foreman: Casey Marques MDCO2 [Moles/Vol]19 mmol/BBhc69-61VwxnoSumma Health Akron CampusComment on above:Performed By: #### CBC, BMP #### [facility] [address] [place] [address] Building Construction Foreman: XIN Capellanreatinine [Mass/Vol]0.90 mg/dLNormal0.50-0.90 [facility] CampusComment on above:Performed By: #### CBC, BMP #### [facility] [address] [place] [address] Building Construction Foreman: SIRISHA Capellan, Amer>60Normal>60[facility] CampusComment on above:Performed By: #### CBC, BMP #### [facility] [address] [place] [address] Building Construction Foreman: Casey Madoff, MDGFR,non Amer>60Normal>60[facility] CampusComment on above:Performed By: #### SAGRARIO, BMP #### [facility] [address] [place] [address] Building Construction Foreman: Casey Marques MDGlucose [Mass/Vol]162 mg/dDEoqs02-82NbjecKeck Hospital of USCComment on above:Performed By: #### SAGRARIO, BMP #### [facility] [address] [place] [address] Building Construction Foreman: VERONICA Capellanotassium [Moles/Vol]3.9 mmol/LNormal3.7-5.3 [facility] CampusComment on above:Performed By: #### SAGRARIO, BMP #### [address] [address] Building Construction Foreman: JACINTO Capellanodium [Moles/Vol]132 mmol/TFrn560-718ZigciSumma Health Akron CampusComment on above:Performed By: #### SAGRARIO, BMP #### [address] [address] Building Construction Foreman: Casey Marques MDUrea nitrogen [Mass/Vol]10 mg/dLNormal6-20[facility] CampusComment on above:Performed By: #### SAGRARIO, BMP #### [address] [address] Building Construction Foreman: Casey Marques MDBUN/CRE RatioNOT REPORTEDNormal9-20[facility] CampusComment on above:Performed By: #### SAGRARIO, BMP #### [address] [address] Building Construction Foreman: JACINTO Capellantaging:NOT REPORTEDNormalSumma Health Akron CampusComment on above:Performed By: #### SAGRARIO, BMP #### [facility] [address] [place] [address] Building Construction Foreman: Nacho Capellan [id number] distribution width (RBC) [Ratio]14.6 %High11.8-14.4[facility] CampusComment on above:Performed By: #### CBC, BMP #### [address] [address] Building Construction Foreman: Casey Marques MDHematocrit (Bld) [Volume fraction]42.5 %Normal 36.3-47.1MKeck Hospital of USCComment on above:Performed By: #### CBC, BMP #### [place] [address] Building Construction Foreman: Casey Marques MDHemoglobin (Bld) [Mass/Vol]12.8 g/dLNormal 11.9-15.1MKeck Hospital of USCComment on above:Performed By: #### CBC, BMP #### [place] [address] Building Construction Foreman: YESSICA CapellanCH (RBC) [Entitic mass]26.9 ewCaiqbz80.2-33.5 [facility] CampusComment on above:Performed By: #### CBC, BMP #### [place] [address] Building Construction Foreman: YESSICA CapellanCHC (RBC) [Mass/Vol]30.1 g/pSWeqhad63.4-34.8 [facility] CampusComment on above:Performed By: #### CBC, BMP #### [place] [address] Building Construction Foreman: YESSICA CapellanCV (RBC) [Entitic vol]89.3 pNIbigwp30.6-102.9 [facility] CampusComment on above:Performed By: #### CBC, BMP #### [address] [address] Building Construction Foreman: RAMONE Capellan Automated0.0 per 100 WBCNormal0.0[facility] CampusComment on above:Performed By: #### CBC, BMP #### [address] [address] Building Construction Foreman: Jose Capellantelet mean volume (Bld) [Entitic vol]8.4 fL Normal8.1-13.5[facility] CampusComment on above:Performed By: #### CBC, BMP #### [address] [address] Building Construction Foreman: VERONICA Capellanlatelets (Bld) [#/Vol]300 10*3/sKBvxwka738-618 [facility] CampusComment on above:Performed By: #### CBC, BMP #### [address] [address] Building Construction Foreman: MADDI CapellanBC (Bld) [#/Vol]4.76 10*6/uLNormal3.95-5.11 [facility] CampusComment on above:Performed By: #### CBC, BMP #### [address] [address] Building Construction Foreman: TIN CapellanBC (Bld) [#/Vol]14.3 10*3/uLHigh3.5-11.3MKeck Hospital of USCComment on above:Performed By: #### CBC, BMP #### [address] [address] Building Construction Foreman: NIDIA Capellan without Diffon 76-03-1811Rlliijvaykq distribution width (RBC) [Ratio]14.6 %High11.8 - 14.4 %[facility], [place] Hematocrit (Bld) [Volume fraction]42.5 %36.3 - 47.1 %[place], [place] Hemoglobin (Bld) [Mass/Vol]12.8 g/dL11.9 - 15.1 g/dLTampa, [place] Interpretation and review of laboratory resultsAbnormalOhioHealth Berger HospitalH (RBC) [Entitic mass]26.9 pg25.2 - 33.5 pgOhioHealth Berger HospitalHC (RBC) [Mass/Vol]30.1 g/dL28.4 - 34.8 g/dLTampa, KYMCV (RBC) [Entitic vol] 89.3 fL82.6 - 102.9 fLTampa, KYPlatelet mean volume (Bld) [Entitic vol]8.4 fL8.1 - 13.5 fLTampa, KYPlatelets (Bld) [#/Vol]300 10*3/uL [place], KYRBC (Bld) [#/Vol]4.76 10*6/uL3.95 - 5.11 m/uLTampa, KYWBC (Bld) [#/Vol]14.3 10*3/uLHighTampa, KYWBC (Bld) [#/Vol]0.0 10*3/uL0.0 per 100 WBCTampa, KYSurgical Pathologyon 05-06-2020 Surgical Pathology(NOTE) -- Diagnosis -- STOMACH, SLEEVE GASTRECTOMY: - [...] with no areas of granularity or masses. Client Portfolio Manager sections 1cs. tm Microscopic Description Sections of gastric mucosa show increased lymphocytes and plasma cells in the lamina propria. There is no evidence of acute inflammation, intestinal metaplasia or dysplasia. There is no evidence of organisms suspicious for Helicobacter with the routine BRI stains. SURGICAL PATHOLOGY CONSULTATION Patient Name: JAZ SANDERS [facility] Rec: [id number] Path Number: [id number] [facility] ANATOMIC PATHOLOGY [address] [place] [phone] [facility] HospitalComment on above: Performed By: #### CBC, PT, PTT, BMP #### [facility] [address] [place] [address] [id number] Building Construction Foreman: Casey Marques MD #### ANICOT #### [facility] [address] [place] [address] Building Construction Foreman: YU WardCoV-2on 05-06-9276QQRR-CoV-2NGrand Lake Joint Township District Memorial HospitalComment on above:Performed By: #### COVID #### [facility] [address] [place] [address] [id number] Building Construction Foreman: Tracie Capellan2Not DetectedNoalNOTNationwide Children's HospitalComment on above:Result Comment: The specimen is NEGATIVE for SARS-CoV-2, the novel coronavirus associated with COVID-19. A negative result does not rule out COVID-19. Bernard SARS-CoV-2 for use on the Bernard [employer]/8800 Systems is a real-time RT-PCR test intended [...] this assay. Fact sheet for Healthcare Providers: https://www.fda.gov/media/875641/download Fact sheet for Patients: https://www.fda.gov/media/375876/download METHODOLOGY: RT-PCRPerformed By: #### COVID #### [facility] [address] [place] [address] Building Construction Foreman: JAMEY Capellan-CoV-2,[facility] Comment on above:Performed By: #### COVID #### [facility] [address] [place] [address] Building Construction Foreman: YU CapellanCoV-2on 72-20-3944YTQD-CoV-2 Source .NASOPHARYNGEAL [facility] VA Medical CenterComment on above:Performed By: #### COVID #### [address] [address] Building Construction Foreman: Ilana Capellan [id number]-KP-Ytjcsyqn<2NBethesda North HospitalComment on above:Performed By: #### CBC, PT, PTT, BMP #### [facility] [address] [place] [address] Building Construction Foreman: Casey Marques MD #### ANICOT #### [facility] [address], [place] [id number] Building Construction Foreman: Ariella Ward<2NBethesda North Hospital Comment on above:Performed By: #### CBC, PT, PTT, BMP #### [facility] [address] [place] [address] Building Construction Foreman: Casey Marques MD #### ANICOT #### [facility] [address], [place] [id number] Building Construction Foreman: Kalie Warde<2NormalSumma Health Akron Campus Comment on above:Result Comment: (NOTE) Consistent with abstinence from nicotine-containing products [...] positive. Test developed and characteristics determined by [employer] See Compliance Statement B: [employer]/CS Performed By: [employer] [address] [place] [address] Construction Skills Teacher: VERONICA Barerformed By: #### CBC, PT, PTT, BMP #### [facility] [place] [address] Building Construction Foreman: Casey Marques MD #### ANICOT #### [employer] [address] [place] [address] Building Construction Foreman: Shani WardSaint Claire Medical Center [address]-BY-Kbkodipa<2ng/mL [facility]- [place], KYCotinine<2ng/mLMagruder HospitalProject Travel [facility]- [place], KYNicotine<2ng/mLWilson Health Health- [place], KYComment on above:(NOTE) Consistent with abstinence from nicotine-containing products for [...] positive. Test developed and characteristics determined by [employer] See Compliance Statement B: [employer]/CS Performed By: [employer] [address] [place] [address] Construction Skills Teacher: Lynn Layne MD EKG 12 Leadon 56-40-5866Ejuwhp Vhxo04ABLOrrmpMercy Health, KYP Pycf61hwsxqtjMgkpmCleveland Clinic, KYP-R Kvqhixdk619 [facility], KYQ-T Csqbdvsp929 [facility], KYQRS Iskjhshh48 [facility], KYQTc Calculation (Tamelatt)500 [facility], KYR Jfsq75wlpthwxIjxdkCleveland Clinic, KYT Gvoi58cyqnbntAmyumCleveland Clinic, KYVentricular Rkid23WQSPxwqkMercy Health, KYNormal sinus rhythm with sinus arrhythmia Prolonged QT Abnormal ECG No previous ECGs availableRegency Hospital Cleveland East, Silver [place] Incoming [place] [facility] [place]23[place] 12:32 PM EST Normal sinus rhythm with sinus arrhythmia Prolonged QT Abnormal ECG No previous ECGs availableRegency Hospital [facility] East, SCAPTClearsky Rehabilitation Hospital Of [facility] 66-88-7305xLVM Coag (Bld) [Time]22.2 iKijfif06.5-30.5Summa Health Akron CampusComment on above: Result Comment: IV Heparin Therapy Range: 48.6-77.8Performed By: #### CBC, PT, PTT, BMP #### [facility] [address] [place] [address] Building Construction Foreman: Casey Marques MD #### ANSAMMIET #### [employer] [address] [place] [address] Building Construction Foreman: Adolph Diaz MDaPTGino Coag (Bld) [Time]22.2 [facility] [place] Comment on above: IV Heparin Therapy Range: 48.6-77.8 Basic Metabolic Panelon 73-13-9693Gcwcd gap [Moles/Vol]12 mmol/L9 - 17 mmol/L [facility], KYBun/Cre RatioNOT REPORTEDRegency Hospital [facility], KYCalcium [Mass/Vol]9.2 mg/dL8.6 - 10.4 mg/dLRegency Hospital [facility], KYChloride [Moles/Vol]104 mmol/L98 - 107 mmol/LMSCCI Hospital Lima, KYCO2 [Moles/Vol]23 mmol/L20 - 31 mmol/L [facility], KYCreatinine [Mass/Vol]0.69 mg/dL0.5 - 0.9 mg/dLRegency Hospital [facility] East, KYGFR >60>60 mL/minRegency Hospital [facility] East, KYGFR Non->60>60 mL/minRegency Hospital Cleveland East, KYGFR/1.73 sq M predicted among non- blacks MDRD (S/P/Bld) [Vol rate/Area]NOT REPORTEDRegency Hospital Cleveland East, KYGFR/1.73 sq M predicted among non-blacks MDRD (S/P/Bld) [Vol rate/Area][facility], [place] Comment on above:Average GFR for 20-29 years old: 116 mL/min/1.73sq m Chronic Kidney Disease: <60 mL/min/1.73sq m Kidney failure: <15 mL/min/1.73sq m eGFR calculated using average adult body mass. Additional eGFR calculator available at: http://www.TESARO/multiple_crcl_2011.htm Glucose [Mass/Vol]123 mg/mCKidg79 - 99 mg/dLRegency Hospital [facility], KYInterpretation and review of laboratory resultsAbnormalRegency Hospital [facility], KYPotassium [Moles/Vol]4.1 mmol/L3.7 - 5.3 mmol/LMSCCI Hospital [place]ima, KYSodium [Moles/Vol]139 mmol/L135 - 144 mmol/LMSCCI Hospital [place], KYUrea nitrogen [Mass/Vol]7 mg/dL6 - 20 mg/dLRegency Hospital [facility], KYBasic Metabolic Profon 04-22-2020(cont.)NormalSumma Health Akron CampusComment on above:Result Comment: Average GFR for 20-29 years old: 116 mL/min/1.73sq m Chronic Kidney Disease: <60 mL/min/1.73sq m Kidney failure: <15 mL/min/1.73sq m eGFR calculated using average adult body mass. Additional eGFR calculator available at: http://www.[employer].Dysonics/multiple_crcl_2012.htmPerformed By: #### CBC, PT, PTT, BMP #### [facility] [address] [place] [address] Building Construction Foreman: Casey Marques MD #### ANICOT #### [facility] [address] [place] [address] Building Construction Foreman: Dontae Ward gap [Moles/Vol]12 mmol/LNormal9-17Sum[facility] Health Akron CampusComment on above:Performed By: #### CBC, PT, PTT, BMP #### [facility] [address] [place] [address] Building Construction Foreman: Casey Marques MD #### ANICOT #### [facility] [address] [place] [address] Building Construction Foreman: IXN Wardalcium [Mass/Vol]9.2 mg/dLNormal8.6-10.4[facility]ron CampusComment on above:Performed By: #### CBC, PT, PTT, BMP #### [facility] [address] [place] [address] Building Construction Foreman: Casey Marques MD #### ANICOT #### [facility] [address] [place] [address] Building Construction Foreman: XIN Wardhloride [Moles/Vol]104 mmol/GZmebjs17-022AqwoiSumma Health Akron CampusComment on above:Performed By: #### CBC, PT, PTT, BMP #### [facility] [address] [place] [address] Building Construction Foreman: Casey Marques MD #### ANICOT #### [facility] [address], [place] [address] Building Construction Foreman: XIN WardO2 [Moles/Vol]23 mmol/PMirjmg20-60LzycySumma Health Akron CampusComment on above:Performed By: #### CBC, PT, PTT, BMP #### [facility] [address] [place] [address] Building Construction Foreman: Casey Marques MD #### ANICOT #### [facility] [address], [place] [id number] Building Construction Foreman: XIN Wardreatinine [Mass/Vol]0.69 mg/dLNormal0.50-0.90 [facility]ron CampusComment on above:Performed By: #### CBC, PT, PTT, BMP #### [place] [address] Building Construction Foreman: Casey Marques MD #### ANICOT #### [facility] [address], [place] [address] Building Construction Foreman: Adolph Diaz MDGFR, Amer>60Normal>60[facility]ron CampusComment on above:Performed By: #### CBC, PT, PTT, BMP #### [place] [address] Building Construction Foreman: Casey Marques MD #### ANICOT #### [facility] [address], [place] [id number] Building Construction Foreman: Adolph Diaz MDGFR,non Amer>60Normal>60[facility]ron CampusComment on above:Performed By: #### CBC, PT, PTT, BMP #### [facility] [address] [place] [address] Building Construction Foreman: Casey Marques MD #### ANICOT #### [facility] [address] [place] [address] Building Construction Foreman: Adolph Diaz MDGlucose [Mass/Vol]123 mg/pIOvpe43-10HipvdKeck Hospital of USCComment on above:Performed By: #### CBC, PT, PTT, BMP #### [facility] [address] [place] [address] Building Construction Foreman: Casey Marques MD #### ANICOT #### [facility] [address] [place] [address] Building Construction Foreman: VERONICA Wardotassium [Moles/Vol]4.1 mmol/LNormal3.7-5.3MKeck Hospital of USCComment on above:Performed By: #### CBC, PT, PTT, BMP #### [address] [address] Building Construction Foreman: Casey Marques MD #### ANICOT #### [facility] [address] [place] [address] Building Construction Foreman: JACINTO Wardodium [Moles/Vol]139 mmol/GXploll600-954WhoakSumma Health Akron CampusComment on above:Performed By: #### CBC, PT, PTT, BMP #### [address] [address] Building Construction Foreman: Casey Marques MD #### ANICOT #### [facility] [address] [place] [address] Building Construction Foreman: Adolph Diaz MDUrea nitrogen [Mass/Vol]7 mg/dLNormal6-20[facility] CampusComment on above:Performed By: #### CBC, PT, PTT, BMP #### [facility] [address] [place] [address] Building Construction Foreman: Casey Marques MD #### ANICOT #### [facility] [address] [place] [address] Building Construction Foreman: ANTONIETA Ward/JAXON WorkmanOT REPORTEDNocritical access hospital01-05[facility] CampusComment on above:Performed By: #### CBC, PT, PTT, BMP #### [facility] [address] [place] [address] Building Construction Foreman: Casey Marques MD #### ANICOT #### [facility] [address] [place] [address] Building Construction Foreman: JACINTO Wardtaging:NOT REPORTEDNoalSumma Health Akron CampusComment on above:Performed By: #### CBC, PT, PTT, BMP #### [address] [address] Building Construction Foreman: Casey Marques MD #### ANICOT #### [facility] [address] [place] [address] Building Construction Foreman: XIN Wardmanisha 05-27-2536Ixyokclacnx distribution width (RBC) [Ratio]14.6 %High11.8-14.4[facility] CampusComment on above:Performed By: #### CBC, PT, PTT, BMP #### [address] [id number] Building Construction Foreman: Casey Marques MD #### ANICOT #### [facility] [address] [place] [address] Building Construction Foreman: Adolph Diaz MDHematocrit (Bld) [Volume fraction]40.8 %Normal 36.3-47.1[facility] Surgical HospitalComment on above:Performed By: #### CBC, PT, PTT, BMP #### [facility] [address] [place] [address] Building Construction Foreman: Casey Marques MD #### ANICOT #### [facility] [address], [place] [id number] Building Construction Foreman: Adolph Diaz MDHemoglobin (Bld) [Mass/Vol]12.8 g/dLNormal 11.9-15.1MKeck Hospital of USCComment on above:Performed By: #### CBC, PT, PTT, BMP #### [address] [address] Building Construction Foreman: Casey Marques MD #### ANICOT #### [facility] [address], [place] [id number] Building Construction Foreman: YESSICA WardCH (RBC) [Entitic mass]26.5 fvPryaaw22.2-33.5 [facility] CampusComment on above:Performed By: #### CBC, PT, PTT, BMP #### [place] [address] Building Construction Foreman: Casey Marquse MD #### ANICOT #### [facility] [address] [place] [address] Building Construction Foreman: NIMCO WardC (RBC) [Mass/Vol]31.4 g/nVRamweh50.4-34.8 [facility] CampusComment on above:Performed By: #### CBC, PT, PTT, BMP #### [address] [id number] Building Construction Foreman: Casey Marques MD #### ANICOT #### [facility] [address] [place] [address] Building Construction Foreman: YVES Ward (RBC) [Entitic vol]84.5 eAJohbrv53.6-102.9 [facility] CampusComment on above:Performed By: #### CBC, PT, PTT, BMP #### [address] [id number] Building Construction Foreman: Casey Marques MD #### ANICOT #### [facility] [address], [place] [id number] Building Construction Foreman: Adolph Diaz MDNRBC Automated0.0 per 100 WBCNormal0.0Sum[facility]ron CampusComment on above:Performed By: #### CBC, PT, PTT, BMP #### [facility] [address] [place] [address] Building Construction Foreman: Casey Marques MD #### ANICOT #### [facility] [address], [place] 0[address] Building Construction Foreman: Stephan Ward mean volume (Bld) [Entitic vol]8.7 fL Normal8.1-13.5[facility] CampusComment on above:Performed By: #### CBC, PT, PTT, BMP #### [address] [address] Building Construction Foreman: Casey Marques MD #### ANICOT #### [facility] [address] [place] [address] Building Construction Foreman: Yajaira Ward (Bld) [#/Vol]298 10*3/vFLbrlvv019-327 [facility] CampusComment on above:Performed By: #### CBC, PT, PTT, BMP #### [address] [address] Building Construction Foreman: Casey Marques MD #### ANICOT #### [facility] [address] [place] [address] Building Construction Foreman: RAYMON Ward (Bld) [#/Vol]4.83 10*6/uLNormal3.95-5.11[facility] CampusComment on above:Performed By: #### CBC, PT, PTT, BMP #### [address] [place] [address] Building Construction Foreman: Casey Marques MD #### ANICOT #### [facility] [address] [place] [address] Building Construction Foreman: Adolph Diaz MDWBC (Bld) [#/Vol]10.8 10*3/uLNormal3.5-11.3[facility] Surgical HospitalComment on above:Performed By: #### CBC, PT, PTT, BMP #### [facility] [address] [place], [place] [address] Building Construction Foreman: Casey Marques MD #### ANICOT #### [facility] [address] [place] [address] Building Construction Foreman: Adolph Diaz MDErythrocyte distribution width (RBC) [Ratio]14.6 %High11.8 - 14.4 %[facility]- [place], KYHematocrit (Bld) [Volume fraction]40.8 % 36.3 - 47.1 %[facility]- [place], KYHemoglobin (Bld) [Mass/Vol]12.8 g/dL11.9 - 15.1 g/dLSumma Health- [place], KYInterpretation and review of laboratory resultsAbnormal [facility], [facility] (RBC) [Entitic mass]26.5 pg25.2 - 33.5 pgSumma Health- [place], KYHC (RBC) [Mass/Vol]31.4 g/dL28.4 - 34.8 g/dLSumma Health- [place], KYV (RBC) [Entitic vol]84.5 fL82.6 - 102.9 fLSumma Health- [place], KYPlatelet mean volume (Bld) [Entitic vol]8.7 fL8.1 - 13.5 fLSumma Health- [place], KYPlatelets (Bld) [#/Vol]298 10*3/uLWilson Health Health- [place], KYRBC (Bld) [#/Vol]4.83 10*6/uL3.95 - 5.11 m/[facility] HospitalNORMAPECONIC BAY [facility] (Bld) [#/Vol]10.8 10*3/uLMemorial Health System NORMABC (Bld) [#/Vol]0.0 10*3/uL0.0 per 100 WBCRegency Hospital Cleveland EastNORMAOtheron 94-10-3649Ln acute cardiopulmonary findingsRegency Hospital Cleveland EastNORMAEXAMINATION: TWO XRAY VIEWS OF THE CHEST 04/22/2020 2:46 pm COMPARISON: Baseline examination HISTORY:ORDERING SYSTEM PROVIDED HISTORY: preop gastric bypass Ben [employer] TECHNOLOGIST PROVIDED HISTORY: preop gastric bypass Ben En Y Reason for Exam: preop gastric bypass FINDINGS: Normal cardiopericardialsilhouette There are no significant pleural, parenchymal, mediastinal or osseous findingsRegency Hospital Cleveland EastNORMAJulius kelechi Incoming Radiant Results From [facility] - 04/22/2020 3:28 PM EST EXAMINATION: TWO XRAY VIEWS OF THE CHEST 04/22/2020 2:46 pm COMPARISON: Baseline examination HISTORY: ORDERING SYSTEM PROVIDED HISTORY: preop gastric bypass Ben En Y TECHNOLOGIST PROVIDED HISTORY: preop gastric bypass Ben En Y Reason for Exam: preop gastric bypass FINDINGS: Normal cardiopericardial silhouette There are no significant pleural, parenchymal, mediastinal or osseous findings IMPRESSION: No acute cardiopulmonary findings [facility] EastNORMAPiedmont Eastside [facility] 19-76-2924MVJ Coag (PPP) [Relative time]0.9 {INR}Normal [facility] CampusComment on above:Result Comment: Therapeutic Range: Moderate Anticoagulant Intensity: INR = 2.0-3.0 High Anticoagulant Intensity: INR = 2.5-3.5Performed By: #### CBC, PT, PTT, BMP #### [facility] [place] [address] Building Construction Foreman: Casey Marques MD #### ANICOT #### [facility] [address] [place] [address] Building Construction Foreman: CULLEN Ward Coag (PPP) [Time]9.3 sNormal9.0-12.0[facility] CampusComment on above:Performed By: #### CBC, PT, PTT, BMP #### [facility] [address] [place] [address] Building Construction Foreman: Casey Marques MD #### ANALI #### [facility] [address] [place] [address] Building Construction Foreman: VERONICA Wardrotime-INRon 99-02-8228PXT Coag (PPP) [Relative time]0.9 {INR}[employer], KYComment on above: Therapeutic Range: Moderate Anticoagulant Intensity: INR = 2.0-3.0 High Anticoagulant Intensity: INR = 2.5-3.5 PT Coag (PPP) [Time]9.3 Naubo, SCXR CHEST (2 VW)on 65-53-5529QP CHEST (2 VW)EXAMINATION: TWO XRAY VIEWS OF THE CHEST 04/22/2020 [...] Signed by: Roxanne Avitia MD 04/22/20 Final resultNormalSumma Health Akron Campus Vital Signs Date TimeVital SignValuePerforming JwpiruguuEskpvbac71-54-7283 14:43-0400Body mass index (BMI) [Ratio]39.77 kg/m2Jojo OGDEN Work Phone: [facility] HospitalQjperojtiy79-34-0316 14:43-0400Body telpdm456.33 kgJojo OGDEN Work Phone: [facility] HospitalRiknkcyvvc52-95-7943 14:43-0400Diastolic blood ksmlabep57 mm[Hg]Jojo OGDEN Work Phone: [facility] HospitalAbxfvtznwq17-58-2910 14:43-0400Systolic blood gyzxyhtw317 mm[Hg]Jojo OGDEN Work Phone: [facility] HospitalPqtelmhskl38-48-9687 11:34-0400Body mass index (BMI) [Ratio]38.49 kg/i8XzqojynjMima Baerly SMOKING TOBACCO PACKER HAND Work Phone: [phone]10-01-2025 11:34-0400Body gdqezq952.19 kgMima Duenas SMOKING TOBACCO PACKER HAND Work Phone: [phone] [place], [place] [address]Fwtbtgmezu36-46-8556 11:34-0400Diastolic blood hoblkrfx81 mm[Hg]Mima Duenas SMOKING TOBACCO PACKER HAND Work Phone: [phone] [place], [place] 8562710-01-2025 11:34-0400Systolic blood nvhijpxg378 mm[Hg]Mima Duenas SMOKING [employer]BAC[employer] Work Phone: [phone] [place], [place] 8562709-03-2025 10:01-0400Body mass index (BMI) [Ratio]36.79 kg/m2Amy Butte PA Work Phone: [phone])[facility] [place], [place] [address]Ogcpvpzwnd75-07-9011 10:01-0400Body txatro528.66 kgAmy Kwaku PA Work Phone: [phone] [place], [place] 8562709-03-2025 10:01-0400Diastolic blood ptasigxb03 mm[Hg]Jojo Butte PA Work Phone: [phone] [place], [place] 8562709-03-2025 10:01-0400Systolic blood aftybtic841 mm[Hg]Jojo Kwaku PA Work Phone: [phone] [place], [place] [address]Cbongiqibn74-18-6736 12:46-0400Body .3 cmEnrike Lindquist MD Work Phone: [phone] [place], [place] 3544608-20-2025 12:46-0400Body mass index (BMI) [Ratio]35.84 kg/t8NzvczslnEnrike Lindquist MD Work Phone: [phone])[address] [place], [place] 3544608-20-2025 12:46-0400Body ilrtuw571.57 kgEnrike Lindquist MD Work Phone: [phone] [place], [place] 3544608-20-2025 12:46-0400Diastolic blood saqvbyqc37 mm[Hg]Enrike Lindquist MD Work Phone: [phone])[address] [place], [place] 3544608-20-2025 12:46-0400Heart rate 73 /minEnrike Lindquist MD Work Phone: [phone] [place], [place] 2788508-20-2025 12:46-0400Systolic blood nuwftkse26 mm[Hg]Enrike Lindquist MD Work Phone: 1(053)255-[address] [place], [place] 2788508-17-2025 23:35-0400Body fmetbe863.34 cmAmanda Merylrbacher CONTRACT COORDINATOR Work Phone: [phone]08-17-2025 23:35-0400 Body xouuwdorwiv38.2 [degF]Amanda Logan CONTRACT COORDINATOR Work Phone: [phone]08-17-2025 23:35-0400 Body uhwtzk755.66 kgAmanda Shethsarahachenikkie CONTRACT COORDINATOR Work Phone: [phone]08-17-2025 23:35-0400 Diastolic blood msqgamxa81 mm[Hg]Amanda Logan CONTRACT COORDINATOR Work Phone: [phone]08-17-2025 23:35-0400 Heart rate75 /Juan Pablo Rosarioacher CONTRACT COORDINATOR Work Phone: [phone]08-17-2025 23:35-0400 Respiratory rate16 /Juan Pablo Shethsarahacher CONTRACT COORDINATOR Work Phone: [phone] [place], [place] 3394408-17-2025 23:35-0400 SaO2% (BldA) [Mass fraction]97 %Amanda Logan CONTRACT COORDINATOR Work Phone: [phone])228-[address] [place], [place] 3394408-17-2025 23:35-0400 Systolic blood bggskydz523 mm[Hg]Amanda Logan CONTRACT COORDINATOR Work Phone: [phone]08-05-2025 10:37-0400 Body rwudae934.1216 kgAmanda Shethsarahacher CONTRACT COORDINATOR Work Phone: [phone] [place], [place] 3394408-05-2025 09:10-0400 Body mass index (BMI) [Ratio]35.7 kg/u0Vfspl Juan DO Work Phone: [phone] [place], [place] [address]Hmogpxiuut98-35-9092 09:10-0400Body ktamcf531.12 kgCorey Juan DO Work Phone: [phone])[facility] [place], [place] [address]Gxfmmhyaui55-91-6762 09:10-0400Diastolic blood ikeaoqvw69 mm[Hg]Les Juan DO Work Phone: [phone])[facility] [place], [place] [address]Mwkbhkrcsc13-07-6392 09:10-0400Systolic blood jhmfdjvu054 mm[Hg]Les Juan DO Work Phone: [phone])[facility] [place], [place] [address]Kizokpvldm84-98-5212 11:28-0400Body mass index (BMI) [Ratio]31.24 kg/p4Sukgy Juan DO Work Phone: 1(857)[facility] [place], [place] [address]Uydqgvpjvl87-56-1700 11:28-0400Body ulrlyk741.61 kgCorey Juan DO Work Phone: [phone])[facility] [place], [place] [address]Nccshyugek43-83-0027 11:28-0400Diastolic blood bubtbpsx17 mm[Hg]Les Juan DO Work Phone: [phone])[facility] [place], [place] [address]Fphiehmtjj74-66-3036 11:28-0400Systolic blood sjtoryfp579 mm[Hg]Les Juan DO Work Phone: [phone])[facility] [place], [place] [address]Wkckksverp14-79-6769 13:34-0400Diastolic blood zgytyfgf31 mm[Hg]Amanda Ford CONTRACT COORDINATOR Work Phone: [facility]07-03-2025 13:34-0400 Heart rate60 /Juan Pablo Ford CONTRACT COORDINATOR Work Phone: [facility]07-03-2025 13:34-0400 Respiratory rate18 /Juan Pablo Ford CONTRACT COORDINATOR Work Phone: [facility]07-03-2025 13:34-0400 SaO2% (BldA) [Mass fraction]99 %Amanda Ford CONTRACT COORDINATOR Work Phone: [facility]07-03-2025 13:34-0400 Systolic blood evgkouyj939 mm[Hg]Amanda Ford CONTRACT COORDINATOR Work Phone: [facility]07-03-2025 10:38-0400 Body sckueb366.34 cmAmanda Ford CONTRACT COORDINATOR Work Phone: [facility]07-03-2025 10:38-0400 Body .1 [degF]Amanda Hahnnikkie CONTRACT COORDINATOR Work Phone: [facility]07-03-2025 10:38-0400 Body .85 kgAmanda Ford CONTRACT COORDINATOR Work Phone: [facility]06-05-2025 15:06-0400 Body mass index (BMI) [Ratio]31.24 kg/m2[facility]06-05-2025 15:06-0400Body xeenzj341.61 kgDo[facility]06-05-2025 15:06-0400 Diastolic blood ugntqvqu90 mm[Hg][facility]06-05-2025 15:06-0400 Systolic blood mm[Hg][facility]05-07-2025 10:04-0400 Body xoykjf408.3 Kam Sinclair MD Work Phone: [facility] HospitalHjtzksbwgd86-81-4757 10:04-0400Body mass index (BMI) [Ratio]29.99 kg/h5GfmdeDarleen Sinclair MD Work Phone: [facility] HospitalHmcnmzinut44-95-5184 10:04-0400Body vywrjl65.52 kgDarleen Sinclair MD Work Phone: [facility] HospitalUzqccdoxsd85-15-6836 10:04-0400Diastolic blood htxodjas82 mm[Hg]Darleen Sinclair MD Work Phone: [facility] HospitalIwywlgggfa92-18-1876 10:04-0400Heart rate67 /min Darleen Sinclair MD Work Phone: [facility] HospitalPfvujhjyfa32-03-6296 10:04-0400Respiratory rate16 /Kevin Sinclair MD Work Phone: [facility] HospitalLbilvtdewf17-07-2298 10:04-7761CtD6% (BldA) [Mass fraction]99 %Darleen Sinclair MD Work Phone: [facility] HospitalXpamvmdiba06-21-0654 10:04-0400Systolic blood orpruhna146 mm[Hg]Darleen Sinclair MD Work Phone: [facility] HospitalSshanwivis00-53-6211 08:32-0500Body vzwomp419.34 [facility] 08:32-0500Body mass index (BMI) [Ratio]30.4 kg/n7XkhcakqpjDelaware County Hospital01-09-2025 08:32-0500Body hfavftviqqd51.3 [degF][facility]01-09-2025 08:32-0500Body yickap82.99 kgDel[facility]01-09-2025 08:32-0500Diastolic blood ntdawmlg93 mm[Hg][facility]01-09-2025 08:32-0500 Heart rate73 /minDel[facility]01-09-2025 08:32-5987MvJ1% (BldA) [Mass fraction]98 %[facility]01-09-2025 08:32-0500 Systolic blood pvpgsgdu767 mm[Hg][facility]11-12-2024 14:03-0500Body zleogg593.3 cmIgnacio Guy MD Work Phone: [facility] HospitalEqbgcu60-75-9363 14:03-0500Body mass index (BMI) [Ratio]30.23 kg/w1YumextIgnacio Guy MD Work Phone: [phone] Cqrdrw52-88-0029 14:03-0500Body .3 kgIgnacio Guy MD Work Phone: [phone] Health SpringfieldDmplfz14-30-7324 15:12-0500Body mass index (BMI) [Ratio]31.71 kg/s3JqgywLes Monsivaiso DO Work Phone: [facility] HospitalWdjkwuvyrm19-32-3276 15:12-0500Body smtroo060.25 kgCorey Juan DO Work Phone: [facility] HospitalFwsqciuokk48-53-5505 15:12-0500Diastolic blood xkrupqru22 mm[Hg]Les Juan DO Work Phone: [facility] HospitalBlcwfltvnm52-03-9473 15:12-0500Systolic blood zcbsnwut155 mm[Hg]Les Juan DO Work Phone: [facility] HospitalPudvzhvtit50-75-1710 11:46-0400Diastolic blood mm[Hg]MELY Ford Work Phone: [phone]23[facility]08-21-2024 11:46-0400 Heart rate76 /minAPRTanja Ford Work Phone: [phone])[address]08-21-2024 11:46-0400 Respiratory rate16 /minAPRTanja Ford Work Phone: [phone]08-21-2024 11:46-0400 SaO2% (BldA) [Mass fraction]99 %MELY Ford Work Phone: [phone]08-21-2024 11:46-0400 Systolic blood kresnekv542 mm[Hg]MELY Ford Work Phone: 1(382)955-[address] [place], [place] 3394408-21-2024 10:20-0400 Body kohwiptdvye61 [degF]MELY Ford Work Phone: [phone])[address]08-21-2024 09:55-0400 Inhaled oxygen flow rate3 L/minMELY Ford Work Phone: [phone]08-21-2024 06:29-0400 Body gsoban780.34 cmAPRTanja Ford Work Phone: [facility]08-21-2024 06:29-0400 Body zlqqyp97.25 kgMELY Ford Work Phone: [facility]07-16-2024 11:56-0400 Body .34 cmAPRTanja Ford Work Phone: [facility]07-16-2024 11:56-0400 Body mass index (BMI) [Ratio]28.8 kg/m2MELY Ford Work Phone: [facility]07-16-2024 11:56-0400 Body kjesbo29.89 kgMELY Ford Work Phone: [facility]02-21-2024 14:56-0500 Body mztcar933.34 cmDel[facility] Hospital02-21-2024 14:56-0500Body mass index (BMI) [Ratio]29.4 kg/j7RtgrzmrzjDelaware County Hospital02-21-2024 14:56-0500Body pvwuui80.7 kgDel[facility] Hospital02-21-2024 14:56-0500Diastolic blood vkufbeew78 mm[Hg][facility] 06-08-2023 14:56-0500Heart rate51 /minDel[facility] Hospital 06-08-2023 14:56-3963TvW1% (BldA) [Mass fraction]98 %[facility]02-21-2024 14:56-0500Systolic blood gghfkuze454 mm[Hg][facility]01-30-2024 14:30-0500Body kzwgfa709.34 cmRomeo Santana Other [facility]01-30-2024 14:30-0500 Body mass index (BMI) [Ratio]27.47 kg/d1GqrzdRomeo Santana Other [employer] Other 01-30-2024 14:30-0500Body marrqf71.36 kgRomeo Santana Other nort [employer] Other 01-30-2024 14:30-0500Body rxoeie84.35 kgDel[facility] Hospital10-23-2023 14:30-0400Body .34 cmMajose guadalupe Lay Other [employer] Other 10-23-2023 14:30-0400Body mass index (BMI) [Ratio] 27.61 kg/m6OqgjyhqPetr Lay Other [employer] Other 10-23-2023 14:30-0400Body gqumokluney72.1 [degF] Petr Lay Other [employer] Other 10-23-2023 14:30-0400Body .81 kgMajose guadalupe Lay Other [employer] Other 10-23-2023 14:30-0400Diastolic blood dfoejbby54 mm[Hg] Petr Lay Other [employer] Other 10-23-2023 14:30-5809WtP4% (BldA) [Mass fraction]99 % Petr Lay Other [employer] Other 10-23-2023 14:30-0400Systolic blood mm[Hg] Petr Lay Other [employer] Other 09-11-2023 11:30-0400Body ecpwly729.34 cmMajose guadalupe Lay Other [employer] Other 09-11-2023 11:30-0400Body mass index (BMI) [Ratio] 28.03 kg/t7PwewsbpPetr Lay Other [employer] Other 09-11-2023 11:30-0400Body .17 kgMattnany Lay Other [employer] Other 09-11-2023 11:30-0400Diastolic blood lijplztd76 mm[Hg] Petr Lay Other [employer] Other 09-11-2023 11:30-0400Respiratory rate18 /minMajose guadalupe Lay Other [employer] Other 09-11-2023 11:30-1858SfF2% (BldA) [Mass fraction]99 % Petr Lay Other [employer] Other 09-11-2023 11:30-0400Systolic blood fkmogpgu319 mm[Hg] Petr Lay Other [employer] Other 06-26-2023 13:30-0400Body aebhvk767.34 cmMajose guadalupe Lay Other [employer] Other 06-26-2023 13:30-0400Body mass index (BMI) [Ratio] 28.78 kg/m3MjnsymcPetr Lay Other [employer] Other 06-26-2023 13:30-0400Body yadsah17.62 kgMajose guadalupe Lay Other [employer] Other 06-26-2023 13:30-0400Diastolic blood fikhrzok62 mm[Hg] Petr Lay Other [employer] Other 06-26-2023 13:30-0400Respiratory rate18 /minMattjeanmariejoshua Lay Other [employer] Other 06-26-2023 13:30-4938UmL0% (BldA) [Mass fraction]98 % Petr Patmer Other [employer] Other 06-26-2023 13:30-0400Systolic blood wfjeacnj992 mm[Hg] Petr Alireza Other [employer] Other 06-15-2023 08:00-0400Body jikejb381.34 cmAmanda Fodr Other [employer] Other 06-15-2023 08:00-0400Body mass index (BMI) [Ratio] 28.03 kg/r8Jeloisly Logan Other [employer] Other 06-15-2023 08:00-0400Body tpewfh96.17 kgJolynnedmundo Logan Other [employer] Other 06-15-2023 08:00-0400Diastolic blood pnuazyat36 mm[Hg] Amanda Ford Other [employer] Other 06-15-2023 08:00-9112RzL8% (BldA) [Mass fraction]95 % Amanda Ford Other [employer] Other 06-15-2023 08:00-0400Systolic blood sohpwgms065 mm[Hg] Amanda Ponceacher Other [employer] Other 05-10-2023 15:30-0400Body nzqycz723.34 cmArtemionnedmundo Rohrbacher Other [employer] Other 05-10-2023 15:30-0400Body mass index (BMI) [Ratio] 29.15 kg/c0Wdqxtavt Rohrbacher Other [employer] Other 05-10-2023 15:30-0400Body vxeqmu28.8 kgJennifer Rohrbacher Other [employer] Other 05-10-2023 15:30-0400Diastolic blood lhtpbvae88 mm[Hg] Amanda Ponceacher Other [employer] Other 05-10-2023 15:30-0400Systolic blood wzrdqgod921 mm[Hg] Amanda Shethrbacher Other [employer] Other 05-05-2023 11:00-0400Body hkubad329.34 cmArtemionnifer Rohrbacher Other [employer] Other 05-05-2023 11:00-0400Body mass index (BMI) [Ratio] 28.73 kg/l7Tbgvdlxr Rohrbacher Other [employer] Other 05-05-2023 11:00-0400Body myzebr40.44 kgJennifer Rohrbacher Other [employer] Other 05-05-2023 11:00-0400Diastolic blood yjzambkk91 mm[Hg] Amanda Logan Other [employer] Other 05-05-2023 11:00-1904RlM0% (BldA) [Mass fraction]100 % Amanda Poncesudhakar Other [facility] [employer] Other 05-05-2023 11:00-0400Systolic blood imayznfv995 mm[Hg] Amanda Shethbilly Other [employer] Other 02-24-2023 16:43-0500Body bmitrhubaiz16.1 [degF]MD Mariam Appiah Work Phone: [phone])[address]02-24-2023 16:43-0500 Diastolic blood snotqyzw51 mm[Hg]MD Mariam Appiah Work Phone: 1(587)[address]02-24-2023 16:43-0500 Heart rate60 /minMD Mariam Appiah Work Phone: 7(241)[address]02-24-2023 16:43-0500 Respiratory rate16 /minMD Mariam Appiah Work Phone: 6(205)[address]02-24-2023 16:43-0500 SaO2% (BldA) [Mass fraction]100 %MD Mariam Appiah Work Phone: 1(120)415-[address] [place], [place] 2752602-24-2023 16:43-0500 Systolic blood jjsbkbso761 mm[Hg]MD Mariam Appiah Work Phone: 7(037)[address]02-24-2023 09:40-0500 Body ugcbhr469.34 cmMD Mariam Appiah Work Phone: [phone])[address]02-24-2023 05:42-0500 Body ggygav90 kgMD Mariam Appiah Work Phone: 1(873)919-[address] [place], [place] 2752602-23-2023 17:55-0500 Body jlsxrycriez29.1 [degF]MD Mariam Appiah Work Phone: 1(035)[address] [place], [place] 1055002-23-2023 17:55-0500 Diastolic blood znxutphr78 mm[Hg]MD Mariam Appaih Work Phone: 1(321)[address]02-23-2023 17:55-0500 Heart rate62 /minMD Mariam Appiah Work Phone: 1(207)[address] [place], [place] 1055002-23-2023 17:55-0500 Respiratory rate18 /minMD Mariam Appiah Work Phone: 1(297)[address] [place], [place] 1055002-23-2023 17:55-0500 SaO2% (BldA) [Mass fraction]100 %MD Mariam Appiah Work Phone: [phone])[address] [place], [place] 1055002-23-2023 17:55-0500 Systolic blood licenppz050 mm[Hg]MD Mariam Appiah Work Phone: 1(155)[address]02-23-2023 14:22-0500 Body gwxtey000.34 cmMD Mariam Appiah Work Phone: 1(371)[address]02-23-2023 14:22-0500 Body njozra80.7 kgMD Mariam Appiah Work Phone: [phone] [place], [place] 1055001-04-2023 15:00-0500 Body lvbemm420.34 cmAmanda Ford Other [employer] [facility] [employer] Other 01-04-2023 15:00-0500Body mass index (BMI) [Ratio] 27.81 kg/m9WfjmnsadAmanda Ford Other [employer] Other 01-04-2023 15:00-0500Body wgjqvogevax53.2 [degF] Amanda Ford Other [employer] Other 01-04-2023 15:00-0500Body uzvjvf36.45 kgAmanda Shethbilly Other [employer] Other 01-04-2023 15:00-0500Diastolic blood hnhddsiq13 mm[Hg] Amanda Logan Other [employer] Other 01-04-2023 15:00-0500Respiratory rate18 /minAmanda Logan Other [employer] Other 01-04-2023 15:00-5153PgX6% (BldA) [Mass fraction]99 % Amanda Logan Other [employer] Other 01-04-2023 15:00-0500Systolic blood mm[Hg] Amanda Ford Other [employer] Other 12-24-2022 21:41-0500Diastolic blood ziutwipv78 mm[Hg] MD Mariam Appiah Work Phone: 0(352)353-[facility]12-24-2022 21:41-0500 Systolic blood qolzniuw446 mm[Hg]MD Mariam Appiah Work Phone: [facility]12-24-2022 18:14-0500 Body .34 cmMD Mariam Appiah Work Phone: 0(181)761-[facility]12-24-2022 18:14-0500 Body gxhcuqymltz05.1 [degF]MD Mariam Appiah Work Phone: [facility]12-24-2022 18:14-0500 Body nylriv28 kgMD Mariam Appiah Work Phone: 1(419)732-[address] [place], [place] 1214312-24-2022 18:14-0500 Heart mhzo489 /minMD Mariam Appiah Work Phone: 1(658)[address] [place], [place] 1055012-24-2022 18:14-0500 Respiratory rate18 /minMD Mariam Appiah Work Phone: 1(210)[address] [place], [place] 1055012-24-2022 18:14-0500 SaO2% (BldA) [Mass fraction]100 %MD Mariam Appiah Work Phone: 1(599)[address] [place], [place] 1055012-22-2022 17:15-0500 Body fvtxbhdxbaz49.5 [degF]MD Mariam Appiah Work Phone: 1(378)[address] [place], [place] 1055012-22-2022 17:15-0500 Diastolic blood zxbbvasz84 mm[Hg]MD Mariam Appiah Work Phone: 1(602)[address] [place], [place] 1055012-22-2022 17:15-0500 Heart rate59 /minMD Mariam Appiah Work Phone: 1(646)[address] [place], [place] 1055012-22-2022 17:15-0500 Respiratory rate18 /minMD Mariam Appiah Work Phone: 1(136)[address] [place], [place] 1055012-22-2022 17:15-0500 SaO2% (BldA) [Mass fraction]100 %MD Mariam Appiah Work Phone: 1(605)[address] [place], [place] 1055012-22-2022 17:15-0500 Systolic blood uhbpduqy058 mm[Hg]MD Mariam Appiah Work Phone: 1(739)[address] [place], [place] 1055012-22-2022 14:33-0500 Body dxurrb235.34 cmMD Mariam Appiah Work Phone: [phone])[address]12-22-2022 14:33-0500 Body cvccud84.1 kgMD Mariam Appiah Work Phone: [phone])[address] [place], [place] 1055012-06-2022 15:30-0500 Body doawnq109.34 cmJeaicha Ponceachenikkie Other [employer] Other 12-06-2022 15:30-0500Body mass index (BMI) [Ratio] 27.05 kg/r5Spaysbxn Rohrbacher Other [employer] Other 12-06-2022 15:30-0500Body ufnhoo51 kgJeaicha Rohrbacher Other [employer] Other 12-06-2022 15:30-0500Diastolic blood zibobolm87 mm[Hg] Amanda Logan Other [employer] Other 12-06-2022 15:30-4203QwN0% (BldA) [Mass fraction]98 % Amanda Ford Other [employer] Other 12-06-2022 15:30-0500Systolic blood avnevslf550 mm[Hg] Amanda Logan Other [employer] Other 10-24-2022 10:00-0400Body muricz555.34 cmAmanda Shethrbacher Other [employer] Other 10-24-2022 10:00-0400Body mass index (BMI) [Ratio] 27.47 kg/a9Hrvikvij Rohrbacher Other [employer] Other 10-24-2022 10:00-0400Body .36 kgJeaicha Merylrbacher Other [employer] Other 10-24-2022 10:00-0400Diastolic blood butgagdd89 mm[Hg] Amanda Hahnnikkie Other [facility] [employer] Other 10-24-2022 10:00-0400Systolic blood iavefidh098 mm[Hg] Amanda Ford Other [facility] [employer] Other 05-17-2022 14:38-0400Blood Pressure DeidraRyarjun Jay [address] [place], [place] 5614105-17-2022 14:38-0400 Diastolic blood mm[Hg]Samir Christofferson [address] [place], [place] 5614105-17-2022 14:38-0400Heart rate61 /minSamir Christofferson [address] [place], [place] 5614105-17-2022 14:38-0400 Respiratory rate18 /minRyarjun Christofferson [address] [place], [place] 5614105-17-2022 14:38-1642CuU4% (BldA) [Mass fraction]100 %Samir Christofferson [address] [place], [place] 5614105-17-2022 14:38-0400 Systolic blood otrzvryx673 mm[Hg]Samir Christofferson [address] [place], [place] 5614104-08-2022 14:39-0400Blood Pressure LocationRyarjun Christofferson [address] [place], [place] 5614104-08-2022 14:39-0400 Diastolic blood mm[Hg]Samir Christofferson [address] [place], [place] 5614104-08-2022 14:39-0400Heart rate65 /minRyan Christofferson [address] [place], [place] 5614104-08-2022 14:39-0400 Respiratory rate18 /minRyan Christofferson [address] [place], [place] 5614104-08-2022 14:39-3739PuW2% (BldA) [Mass fraction]100 %Samir Thompson [facility]04-08-2022 14:39-0400 Systolic blood xpdaubji727 mm[Hg]Samir Thompson [facility]03-31-2022 11:00-0400Body eghvvw080.34 cmAmanda Ford Other [employer] Other 03-31-2022 11:00-0400Body mass index (BMI) [Ratio] 29.15 kg/b0DyyiatnlAmanda Ford Other [employer] Other 03-31-2022 11:00-0400Body facwuv58.8 kgAmanda Ford Other [employer] Other 03-31-2022 11:00-0400Diastolic blood hhdwmlif29 mm[Hg] Amanda Ford Other [employer] Other 03-31-2022 11:00-7993GcS1% (BldA) [Mass fraction]98 % Amanda Ford Other [employer] Other 03-31-2022 11:00-0400Systolic blood vipzmebi712 mm[Hg] Amanda Ford Other [employer] Other 01-21-2021 08:20-0500Body Bpjytmivvfs85.7 [degF] [facility], [place], WL94-18-0452 08:20-0500BP Ivbrfdupn82 mm[Hg] [facility], [place], SZ10-17-5366 08:20-0500BP Pfsfmevn698 mm[Hg] [facility], [place], MX45-26-6984 08:20-0500Pulse (Heart Rate)101 /minSycamore [facility]als [facility], [place], MO83-92-4176 08:20-0500Pulse Smhejmhz84 % [facility], [place], IW89-96-6714 08:20-0500Respiratory Rate19 /min [facility], [place], TH68-35-6573 08:51-0500BMI (Body Mass Index) 58.86 kg/j5RgpajpnSycamore Shoals Hospital, [place], ZL59-22-7877 08:51-0500Body weight 191.42 kgSycamore Shoals Hospital, [place], CK99-62-3344 08:51-3844Myebji198.3 cm [facility], [place], PW60-73-0749 13:30-0500BMI (Body Mass Index) 61.79 kg/m[address], BQ19-93-1999 13:30-0500Body Fjueyhyjlvc60.11 [degF][address], WO72-75-1659 13:30-0500Body .[address], XO54-85-1001 13:30-0500BP Huagpigin25 mm[Hg][address], QF00-90-6602 13:30-0500BP Rvyjevpb321 mm[Hg][address], KZ06-83-8018 13:30-1307Fbvmao035.[address], PR67-56-2440 13:30-0500Pulse (Heart Rate)104 /minStv[address], KP93-47-4582 13:30-0500Pulse Zsuoapwr69 %[address], LJ29-73-8796 13:30-0500 Respiratory Rate18 /minStvz [address] [place] [address], [place] Encounters Encounter DateEncounter TypeCare ProviderFacilityStart: 02-07-2025 End: 33-91-4967PinpdpMolly Mcgee [facility] 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 Linux Unix Engineer - SherwoodComment on above:Hypothyroidism affecting in second trimester (Primary Dx); headache in second trimester; Previous gastric bypass affecting , antepartum; 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 ([facility])Start: 02-06-2025 End: 35-49-8654Wdqdvd outpatient visit 15 minutesJojo OGDEN Work Phone: [facility] OBGYNComment on above:Third trimester ([facility]); 29 weeks gestation of ([facility])Start: 02-06-2025 End: 97-71-0401utrvlepdolFWY RAMEYNot AvailableStart: 02-06-2025 End: 00-43-3628Nheday Shakeel OGDEN Work Phone: [facility]BGYNStart: 02-06-2025 End: 39-28-1480Pgczvc Shakeel OGDEN Work Phone: [facility]BGYNStart: 01-30-2025 End: 82-84-4168trjjxmzimgDQLSJRLV EBERLYNot AvailableStart: 01-16-2025 End: 15-95-5186Sjpzie flowsColby Duenas NP Work Phone: [facility]BGYNStart: 01-16-2025 End: 00-10-5555Fxkppt Eliecer Duenas SMOKING TOBACCO PACKER HAND Work Phone: [facility]BGYNStart: 01-16-2025 End: 40-92-1574Xhrhka outpatient visit 15 minutesMima Duenas NP Work Phone: [facility] OBGYNComment on above:26 weeks gestation of ([facility]); Second trimester ([facility]); TSH (thyroid-stimulating hormone deficiency)Start: 01-16-2025 End: 26-98-3000zgdbdtyaryRBVRQQCT EBERLYNot AvailableStart: 01-11-2025 End: 83-07-8721Cikuxnqnt Result EncounterCorey Juan DO Work Phone: noms External Department UnsolicitedStart: 01-11-2025 End: 16-38-5874Esmwbjten Result EncounterCorey Juan DO Work Phone: noms External Department UnsolicitedStart: 01-09-2025 End: 92-20-4124Pemjmqhuj Result EncounterAmy Kwaku OGDEN Work Phone: noms External Department UnsolicitedStart: 01-09-2025 End: 04-23-9507Anjnqskkf Result EncounterAmy Kwaku OGDEN Work Phone: noms External Department UnsolicitedStart: 01-04-2025 End: 52-07-1128Ektccy Rosanna Dick RNMaternal- Medicine at Cherrington HospitalComment on above:Previous gastric bypass affecting , antepartum (Primary Dx); Hypothyroidism affecting in second trimester; 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 ([facility]); Obesity affecting in second trimester, unspecified obesity typeStart: 01-03-2025 End: 54-04-9113rcrncgbvvfEG PCP NO [facility] Ambulatory PPGStart: 01-03-2025 End: 72-00-7934Kqkvfvobk encounterRoslyn Griffin RNMaternal Medicine [facility] CentertonStart: 12-19-2024 End: 61-66-7710Xcyfpb flowsheetJojo OGDEN Work Phone: [facility]BGYNStart: 12-19-2024 End: 26-14-7769Qhplqy flowsheetJojo OGDEN Work Phone: noMS [facility] OBGYNStart: 12-19-2024 End: 83-66-6843Xpgydm outpatient visit 15 minutesJojo OGDEN Work Phone: [facility] OBGYNComment on above:22 weeks gestation of ([facility]); Second trimester ([facility]); Thyroid disease ; H/O gastric sleeve; H/O iron deficiency anemia; Diabetes mellitus screeningStart: 12-19-2024 End: 30-52-3297vzrwgmkgjxCLV RAMEYNot AvailableStart: 12-15-2024 End: 01-76-7417Monvbewhx Result EncounterCorey Juan DO Work Phone: noms External Department UnsolicitedStart: 12-15-2024 End: 03-38-7088Ugwnjkcci Result EncounterCorey Juan DO Work Phone: noms External Department UnsolicitedStart: 12-05-2024 End: 97-73-8478Stycpo consultation new/estab patient [address] Lindquist MD Work Phone: [phone]-Gblut [facility] Comment on above:20 weeks gestation of (Primary Dx); Previous gastric bypass affecting , antepartum; Obesity affecting in second trimester, unspecified obesity type; Hypothyroidism affecting in second trimester; 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 ([facility]); headache in second trimesterStart: 12-05-2024 End: 74-13-1134Qekeag OnlyChiquita Shen RNMaternal- Medicine at Cherrington HospitalComment on above:Previous gastric bypass affecting , antepartum (Primary Dx); Hypothyroidism affecting in second trimester; 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 ([facility]); Obesity affecting in second trimester, unspecified obesity type; Encounter for supervision of resulting from assisted reproductive technology, antepartumStart: 12-04-2024 End: 32-87-3573qsaeeiuufpCNHUA FAJAYNAONot AvailableStart: 12-02-2024 End: 78-94-9259Ceqbfkc encounter procedureRichard A Visci DO-[address] [employer] - O/P Start: 12-02-2024 End: 81-84-6203qgtunnfmjbUxyyursl Logan BOONE Work Phone: [facility] Work Phone: Start: 12-02-2024 End: 19-38-8326Kjfypxho Result EncounterRichard A Visci DO Work Phone: noms External Department UnsolicitedStart: 12-02-2024 End: 21-32-8879Jsmvfqxu Result EncounterRichard A Visci DO Work Phone: NOUN External Department UnsolicitedStart: 12-01-2024 Non-patient / Non-visit([place]) Elizabethnura Osborne SMOKING TOBACCO PACKER HANDAna-[facility] Work Phone: Start: 11-30-2024 End: 10-40-5904jaffizzqrjJbekzogt Rohrbacher CONTRACT COORDINATOR Work Phone: [facility] Work Phone: Start: 11-30-2024 End: 65-32-6270Tsqgacxe ReferredChris Chapman DO-[facility] Start: 70-83-1566Arx-patient / Non-visitChris Chapman DO-[facility] Work Phone: Start: 11-20-2024 End: 83-19-8201Tmpggl flowsheetCorey Juan DO Work Phone: [facility]BGYNStart: 11-20-2024 End: 00-12-9545Ofjpjk flowsheetCorey Juan DO Work Phone: [facility]BGYNStart: 11-20-2024 End: 39-97-7981Wiwxdlwao Result EncounterCorey Juan DO Work Phone: noms External Department UnsolicitedStart: 11-20-2024 End: 85-27-8563Eukfkaeb Result EncounterCorey Juan DO Work Phone: noms External Department UnsolicitedStart: 11-20-2024 Non-patient / Non-visitCorey Juan-[facility] Work Phone: Start: 11-20-2024 End: 07-45-0015Rntzdsy encounter procedureCorey Juan DO Work Phone: noms HealthcareStart: 11-20-2024 End: 77-05-0797Vlmjpcgw preventive med est patient 18-39 yrsCorey Juan DO Work Phone: [facility] OBGYNComment on above:Well woman exam with routine gynecological exam; Exposure to STD; Second trimester ([facility] 18 weeks gestation of ([facility]); Need for maternal serum alpha-protein (MSAFP) screening ([facility]); Screening, , for anatomic survey ([facility]); Thyroid diseaseStart: 11-20-2024 End: 75-02-1903easzahdvcrSZCEY FAZIONot AvailableStart: [id number]-patient / Non-visitChris Dickerson Ari DO-[facility] Work Phone: Start: 10-26-2024 End: 23-59-7223Gkodgu OnlyNot In System Ref ProvMaternal- Medicine at Protestant Deaconess Hospitaltart: 10-22-2024 End: 81-05-0965Kbwuqz outpatient visit 15 minutesCorey Juan DO Work Phone: [facility] BCP OBComment on above:13 weeks gestation of ([facility]); Second trimester ([facility]); Thyroid disease ; H/O gastric sleeve; H/O iron deficiency anemia; resulting from in vitro fertilization in first trimester ([facility]) Start: 10-22-2024 End: 97-40-3375uuybpwaazbKPBQI FAZIONot AvailableStart: 10-18-2024 End: 74-78-3130Rtcamqiel department patient visitAmanda Ford APRN Work Phone: [phone]-Ctmqerqgz Room Work Phone: Start: 10-10-2024 End: 92-12-5548Ymduutubz Result EncounterCorey Juan DO Work Phone: noms External Department UnsolicitedStart: 10-10-2024 End: 60-34-2282Zvpdsmlol Result EncounterCorey Juan DO Work Phone: noms External Department UnsolicitedStart: 09-26-2024 End: 02-05-9108prhhkmgwunHadfwvqk RohrbacherFacility:[facility] HospitalStart: 09-20-2024 End: 08-39-7992Zmapfd outpatient visit 5 minutesNoms Bcp Ob Juan NurseNO BCP OBComment on above:GA: 5t2uHuygc: 09-20-2024 End: 56-33-1778akgaefoyajHOFJL SABBAGHNot AvailableStart: 09-03-2024 End: 65-20-4361Jjirnjq evaluation of patient and reportUs Tech 1 [facility] Rej Work Phone: Reproductive Endocrinology InfertilityComment on above:Early stage of (HCC)Start: 09-03-2024 End: 80-47-9833rhdhmjrvftLAPRHIX G MICKEYFacility:[facility] Start: 08-28-2024 End: 54-43-3702Mivckuo evaluation of patient and reportUs Tech 2 [facility] Beac Work Phone: Reproductive Endocrinology InfertilityComment on above: resulting from assisted reproductive technology in first trimester ([facility])Start: 08-28-2024 End: 23-06-3465fhidgdvjnvMPIVDJI G MICKEYFacility:[facility] Start: 08-24-2024 End: 84-51-6816Jozfljkdp encounterLiliana G David CONTRACT COORDINATOR.DEPLOYMENT SPECIALIST Work Phone: Reproductive Endocrinology InfertilityComment on above:Patient QuestionStart: 08-23-2024 End: 21-59-1821Qqjsmhpgp encounterLiliana G David CONTRACT COORDINATOR.DEPLOYMENT SPECIALIST Work Phone: Reproductive Endocrinology InfertilityComment on above:PainStart: 08-22-2024 End: 18-27-0564Cydtsrforrest Sinclair MD Work Phone: noms ENDOCRINOLOGYStart: 08-22-2024 End: 39-53-1409Yfftvnstephany Sinclair MD Work Phone: noms ENDOCRINOLOGYStart: 08-22-2024 End: 75-71-2186Xztzqr outpatient visit 25 minutesDarleen Sinclair MD Work Phone: NOMS SH ENDOCRINOLOGYComment on above:Abnormal thyroid function test (Primary Dx); H/O gastric bypass; 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CMS/HCC); Vitamin D deficiencyStart: 08-22-2024 End: 68-08-6686tjmzcbpqkrDZSHO Angel Raymond AvailableStart: 08-20-2024 End: 23-51-8937Sretuuiuurhe consultation with [place] Hernandez APRN.DEPLOYMENT SPECIALIST Work Phone: Reproductive Endocrinology InfertilityStart: 08-20-2024 End: 60-74-8028cluaznfzarNmvmncsBridget Hernandez APRN.DEPLOYMENT SPECIALIST Work Phone: Reproductive Endocrinology InfertilityComment on above: 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) (Primary Dx)Start: 08-18-2024 End: 69-93-6673vbedwidrjjXuoujde G Mickey CONTRACT COORDINATOR.DEPLOYMENT SPECIALIST Work Phone: Reproductive Endocrinology InfertilityComment on above:UltrasoundStart: 08-17-2024 End: 94-32-5449yqylbptmauVslqgrha RohrbacherFacility:[facility] HospitalStart: 08-16-2024 End: 26-22-5065Qssntwpcf encounterMelodie Hernandez APRN.DEPLOYMENT SPECIALIST Work Phone: Reproductive Endocrinology InfertilityComment on above:positive for pregnancyStart: 08-15-2024 End: 34-03-5021Gnnkolzwn encounterMelodie Hernandez APRN.DEPLOYMENT SPECIALIST Work Phone: Reproductive Endocrinology InfertilityComment on above:Patient QuestionStart: 08-15-2024 End: 95-92-3300uaeluqdfekQiyvnlh G MickeyFacility:[facility] HospitalStart: 08-13-2024 End: 15-20-2139ybuasuwkxpIxmbxyh G MickeyFacility:[facility] HospitalStart: 07-31-2024 End: 14-21-6468tedffjycygQTOERhgagnsl:[facility] HospitalStart: 07-31-2024 End: 64-49-8007Neftofg encounter procedureAndrology Studio Engineer Work Phone: [facility] Andrology LaboratoryComment on above: Procreative management (Primary Dx)Start: 07-30-2024 End: 55-84-2839Wgkbunnpt encounterMelodie Hernandez APRN.DEPLOYMENT SPECIALIST Work Phone: Reproductive Endocrinology InfertilityComment on above:Patient QuestionStart: 07-25-2024 End: 14-84-9337expmjffljzYWWNXgjotcpm:[facility] HospitalStart: 07-07-2024 End: 12-79-4630ubizuvdmtdCAVQNPUB TANTIBHEDHYANGKULFacility:[facility]htart: 07-07-2024 End: 53-86-7910Yyuwqfo encounter procedureAndrology Studio Engineer Work Phone: [facility] Andrology LaboratoryComment on above: Procreative management (Primary Dx)Encounter for artificial insemination (Primary Dx)Start: 07-06-2024 End: 33-28-3566Tmdwdvopu encounterMelodie Hernandez CONTRACT COORDINATOR.DEPLOYMENT SPECIALIST Work Phone: Reproductive Endocrinology InfertilityComment on above:Patient calling back/re iui 07/07 unsureStart: 07-05-2024 End: 57-57-6772Zyxkdkfmz encounterIgnacio Guy MD Work Phone: reproductive Endocrinology InfertilityComment on above:re iui this wknd/has cervical polyp questionStart: 07-04-2024 End: 74-26-8140Yzotjapzi encounterMelodie Hernandez CONTRACT COORDINATOR.DEPLOYMENT SPECIALIST Work Phone: Reproductive Endocrinology InfertilityComment on above:Treatment PlanningStart: 07-04-2024 End: 77-09-3246ugctjmgyarNzndkrv G Mickey CONTRACT COORDINATOR.DEPLOYMENT SPECIALIST Work Phone: Reproductive Endocrinology InfertilityComment on above:OvulatingStart: 07-04-2024 End: 78-46-1566Xpsjzbs encounter procedureUs Tech 3 [facility] Beac Work Phone: Reproductive Endocrinology InfertilityStart: 07-02-2024 End: 46-25-2153uhpnajflgfASVMTYW MICKEYFacility:[facility] HospitalStart: 06-29-2024 End: 33-60-4090gdgfdgmbrhOILBQYT MICKEYFacility:[facility] HospitalStart: 06-23-2024 End: 17-89-4829oejskvpmelBttmxmx G David CONTRACT COORDINATOR.DEPLOYMENT SPECIALIST Work Phone: Reproductive Endocrinology InfertilityComment on above:Negative test and possible hematomaStart: 06-09-2024 End: 01-68-5808xuuqxqpiylLIQJNK ATTARANFacility:[facility] HospitalStart: 06-09-2024 End: 55-94-8478Juzywfv encounter procedureAndrology Studio Engineer Work Phone: [facility] Andrology LaboratoryComment on above: Procreative management (Primary Dx)Female infertility (Primary Dx)Start: 06-05-2024 End: 26-62-7718feknlgsbkoZxjplnj G David CONTRACT COORDINATOR.DEPLOYMENT SPECIALIST Work Phone: Reproductive Endocrinology InfertilityStart: 06-05-2024 End: 42-17-8263Glkkvfi encounter procedureLiliana G David CONTRACT COORDINATOR.DEPLOYMENT SPECIALIST Work Phone: Reproductive Endocrinology InfertilityComment on above:IUI appointmentStart: 05-22-2024 End: 56-83-2823vlazzfchpyYolpldq G David CONTRACT COORDINATOR.DEPLOYMENT SPECIALIST Work Phone: Reproductive Endocrinology InfertilityComment on above:Progesterone resultsStart: 05-21-2024 End: 66-74-2256mdtygnstvqZewvkec G MickeyFacility:[facility] HospitalStart: 05-18-2024 End: 57-66-0876ukcnsxpmqcFOZDIGL MICKEYFacility:[facility] HospitalStart: 05-09-2024 End: 46-54-3405jebuzqumodBxllrts G David CONTRACT COORDINATOR.DEPLOYMENT SPECIALIST Work Phone: Reproductive Endocrinology InfertilityComment on above:Reproductive mgmt, 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)Start: 05-09-2024 End: 02-67-6875Ddizluptdtuu consultation with [place] Hernandez APRN.DEPLOYMENT SPECIALIST Work Phone: Reproductive Endocrinology InfertilityStart: 05-06-2024 End: 16-12-9641ljpzumstviBmqevpb G Mickey CONTRACT COORDINATOR.DEPLOYMENT SPECIALIST Work Phone: Reproductive Endocrinology InfertilityComment on above:Consent formStart: 05-02-2024 End: 21-84-4039Rghdtmwhzgme consultation with Rufino Enriquez PhD Work Phone: [facility] HospitalComment on above:Bipolar 1 disorder (Multi) (Primary Dx); Infertility counselingStart: 05-02-2024 End: 75-60-3348okiuqstzyyLQLMQI Nikole [facility] AmbulatoryStart: 04-26-2024 End: 24-22-3956ueuzyjhlocVdjgsdlprCincinnati VA Medical Center Work Phone: Start: 04-26-2024 End: 33-47-9211Tinaevu encounter procedureCritical Access Hospital Physician [facility] Work Phone: Start: 04-24-2024 End: 60-68-9668mlstbrfqlxWXJJOZJ MICKEYFacility:[facility] HospitalStart: 04-23-2024 End: 16-69-9319emeioytrvfWadjcnnkkCincinnati VA Medical Center Work Phone: Start: 04-23-2024 End: 51-44-8218Zeniyhc encounter procedureCritical Access Hospital Physician [facility] Work Phone: Start: 04-02-2024 End: 05-74-4621jhdpilbmfiKqhjccl G Mickey CONTRACT COORDINATOR.DEPLOYMENT SPECIALIST Work Phone: Reproductive Endocrinology InfertilityComment on above:Genetic testingStart: 03-09-2024 End: 19-91-9032ajtkttvwnoIuaurstSue Hernandez APRN.DEPLOYMENT SPECIALIST Work Phone: Reproductive Endocrinology InfertilityComment on above:Reproductive mgmt, 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); Special screening examination for infectious diseases; Encounter for other genetic testing of female for procreative managementStart: 03-09-2024 End: 41-36-7769Ydkafykthyez consultation with [place] Hernandez APRN.CNP Work Phone: Reproductive Endocrinology InfertilityStart: 02-29-2024 End: 29-20-6932qyradsaxxmBAWKENB MICKEYFacility:[facility]htart: 02-28-2024 End: 01-76-7375sbqwhfpvysKEWQJR ATTARANFacility:[facility]htart: 02-28-2024 End: 28-07-1546Bzwyayy encounter procedureIgnacio Guy MD Work Phone: reproductive Endocrinology InfertilityComment on above: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)Start: 02-27-2024 End: 02-71-8077vetxvfcponPhhtmuyv Rohrbacher APRN Work Phone: [facility] Work Phone: Start: 02-27-2024 End: 73-14-2869Ytyqoqm encounter procedureAmanda Ford APRN Work Phone: [facility] Work Phone: Start: 99-65-8204Zsi-patient / Non-visitCritical Access Hospital Physician [facility] Work Phone: Start: 02-20-2024 End: 34-49-6228Flxswxx encounter procedureCorey Ujan DO Work Phone: NOMS HealthcareStart: 02-20-2024 End: 02-50-0446Zxrcstut preventive med est patient 18-39 yrsCorey Juan DO Work Phone: N[facility] BCP OBComment on above:Well woman exam with routine gynecological examStart: 02-20-2024 End: 00-84-5050knlighrqyfDQHBQ FAZIONot AvailableStart: 02-20-2024 End: 42-74-2667Adoenp flowsheetCorey Juan DO Work Phone: noms BCP OBStart: 02-20-2024 End: 49-32-5703Htbhuh flowsheetCorey Juan DO Work Phone: noMS BCP OBStart: 02-20-2024 End: 21-62-0134Ftxjddsor Result EncounterCorey Juan DO Work Phone: NOMS External Department UnsolicitedStart: 01-17-2024 End: 36-12-1527lohegsjhpvTTSY Jennifer Rohrbacher Work Phone: [facility] Work Phone: Start: 01-17-2024 End: 70-02-6773Dnxnrgt encounter procedureMELY Ford Work Phone: [facility] Work Phone: Start: 79-46-2645Afj-patient / Non-visitAPRTanja Ford Work Phone: [facility] Work Phone: Start: 12-20-2023 End: 11-19-8547pjeifjhkrfWHRI Jennifer Rohrbacher Work Phone: [facility] Work Phone: Start: 12-20-2023 End: 09-67-9743Nxujooj encounter procedureAPRTanja Ford Work Phone: [facility] Work Phone: Start: 99-55-6977rsxkjoklgkUryjn Bailey [facility]: 48-97-0399Tyj-patient / Non-visitAPRTanja Ford Work Phone: [facility] Work Phone: Start: 12-07-2023 End: 06-61-1969Jljydjsis to same day surgery centerMELY Ford Work Phone: [facility] CenterStart: 12-07-2023 End: 48-45-3333sncrhgnwikEPBT Jennifer Rohrbachenikkie Work Phone: [facility] Work Phone: Start: 12-01-2023 End: 76-09-9792hzicoaottiQTHF Jennifer Rohrbacher Work Phone: [facility] Work Phone: Start: 12-01-2023 End: 37-61-6507Yqhhfof encounter procedureMELY Ford Work Phone: [facility] Work Phone: Start: 11-28-2023 End: 59-13-2588gungaooptqMYOF Jennifer Rohrbacher Work Phone: [facility] Work Phone: Start: 11-28-2023 End: 66-03-6193Khlzwzj encounter procedureMELY Ford Work Phone: [facility]-Pre-Surgical Testing Work Phone: Start: 11-02-2023 End: 98-03-5187Mdpwtdnkq department patient visitAmanda Ford [facility]: 11-01-2023 End: 38-72-9353vqnjnkllqnMPAU Jennifer Rohrbacher Work Phone: [facility] Work Phone: Start: 11-01-2023 End: 37-50-4721Czuyqve encounter procedureMELY Ford Work Phone: [facility] Work Phone: Start: 10-26-2023 End: 70-64-6680hgvpcodkwqEYLY Amanda Rosarioacher Work Phone: [facility] Work Phone: Start: 10-26-2023 End: 60-27-2220Tmdfcez encounter procedureAPRTanja Patel Rosarioacher Work Phone: [facility] Work Phone: Start: 10-13-2023 End: 75-57-8564efzegdhnjgGucbypqfw [facility] Work Phone: Start: 10-13-2023 End: 37-93-8876Aaepkxw encounter procedureEcu Health [facility] Hospitalsophia [facility] Work Phone: Start: 86-72-7356Uuu-patient / Non-visitChristoph Physician [facility] [employer] Work Phone: Start: 06-08-2023 End: 57-46-5513ekzarhdrubLhveslrunAshtabula [facility] Medical Center Work Phone: Start: 06-08-2023 End: 09-35-2307Pctvbhd encounter procedureEcu Health North Hospitalsophia [facility] Work Phone: Start: 05-17-2023 End: 22-64-3772ixpniujponKsfngkvq Merylrbacher Other [employer] Other Start: 95-77-1461Ihtovb outpatient visit 15 minutes Romeo Bazzi OrthopedicsStart: 43-81-4723Wilrhcxhh encounterJennifer MerylrbacherFPG [facility] ClinicStart: 05-17-2023 End: 21-39-0658Tgbzlvi encounter procedureChad Physician Group-Start: 04-28-2023 End: 75-88-7321nffrqrfuqfUxshdcjk Rohrbacher Other [employer] Other Start: 31-67-5519Rnupkfacp encounterJephamifer RohrbacherFPG [facility] ClinicStart: 04-22-2023 End: 69-77-0249xfjmovbtuiMvpggeos Rohrbacher Other [employer] Other Start: 28-09-1980Ivrjmtdnp encounterJennifer RohrbacherFPG [facility] ClinicStart: 04-19-2023 End: 99-44-9581ummkxjkyiwIberikze Rohrbacher Other [employer] Other Start: 82-28-5623Lozzjhqnu encounterJennifer RohrbacherFPG [facility]ner RoadStart: 04-14-2023 End: 73-20-3082hzlowqiqnqHywbnvhw Rohrbacher Other [facility] Other Start: 93-28-1337Qnynibpac encounterJeaicha ShethrbacherFPG [facility] ClinicStart: 03-17-2023 End: 04-69-3349gcrxvinsvvMtxis Bailey Other [employer] Other Start: 72-90-0955Pfmdwlmji encounterRomeo Bazzi OrthopedicsStart: 02-07-2023 End: 40-66-7379xlyxiurcbkWvqgmbfk Rohrbacher Other [employer] Other Start: 45-49-6902Jymeoo outpatient visit 15 minutes Petr [facility] [place]Start: 82-54-5767Jzdiuxdhh encounter Amanda PonceacherFPG [facility] ClinicStart: 01-27-2023 End: 55-22-9692geifcsxlvhVypovvqs Rohrbacher Other [employer] Other Start: 16-65-1370Fprssipst encounterJennifer RohrbacherFPG [facility] [place]Start: 01-19-2023 End: 14-91-9276iuorchzhdiYmclgssj Rohrbacher Other [employer] Other Start: 15-33-0883Cmjakqlyf encounterJennifer RohrbacherFPG [facility] ClinicStart: 01-13-2023 End: 93-42-6762njdgfwtdlxAeihnsgu Rohrbacher Other [employer] Other Start: 02-98-6509Fkptbthzx encounterJennifer RohrbacherFPG [facility] ClinicStart: 01-10-2023 End: 05-15-5032xogrfhhjigTtnwsvuv Rohrbacher Other [employer] Other Start: 08-47-5649Gnbepnxud encounterJennifer RohrbacherFPG [facility] ClinicStart: 01-06-2023 End: 13-96-8936iwpbjyylbbXwhzagca Rohrbacher Other [employer] Other Start: 11-89-6278Yvhdhsndo encounterJennifer RohrbacherFPG [facility] ClinicStart: 12-27-2022 End: 02-78-9680xmoadsrmakOnirfus Widmer Other [employer] Other Start: 74-14-4562Bpwrjw outpatient visit 15 minutes Petr LayB[facility] [place]Start: 11-10-2022 End: 02-68-0580qgxeroxjyfWzeprvtw Rohrbacher Other [employer] Other Start: 99-47-1739Btxxicarp encounterJennifer RohrbacherFPG [facility] [place]kyStart: 10-21-2022 End: 03-58-7873lkgmhdtlxzYxpupdfn Rohrbacher Other [employer] Other Start: 69-94-3780Hwweydrlp encounterJennifer RohrbacherF Family [facility] ClintonStart: 10-11-2022 End: 14-89-7316tlivkhjrqlFevhsru Widmer Other [employer] Other Start: 67-75-0290Rujzlq consultation new/estab patient 40 minMatthew WidmerFPG Family [facility] [place]kyStart: 09-30-2022 End: 34-15-1600kesoqtmpscZdpkudhz Rohrbacher Other [employer] Other start: 09-84-5958Fokrum outpatient visit 15 minutes Amanda JohnO[facility] ClintonStart: 08-25-2022 End: 39-49-9136cinjboepxkDhdxrzsi Rohrbacher Other [employer] Other start: 72-90-2340Doznbk outpatient visit 15 minutes Amanda JohnO[facility] ClintonStart: 08-20-2022 End: 69-27-2845wauljooypaIydebhbj Rohrbacher Other [employer] Other start: 48-66-6528Spdzyk outpatient visit 15 minutes Amanda JovaniKind[facility] ClintonStart: 07-19-2022 End: 69-00-8069vigymyuiocXnxabgty Rohrbacher Other [employer] Other Start: 38-28-5174Khiahgrch encounterJennifer MerylrbacherF Family [facility] ClintonStart: 07-08-2022 End: 99-55-1779xsrveprppcBzwxippd Rohrbacher Other [employer] [facility] [employer] Other Start: 07-07-3267Lmlztbfgi encounterAmanda LopezMatheny Medical and Educational CenterStart: 06-23-2022 End: 48-83-3046dnufosqfktMMIH Jennifer Rohrbacher Work Phone: [facility] Work Phone: Start: 06-23-2022 End: 04-39-0242Xjeprlm encounter procedureAPRTanja Ford Work Phone: [facility] [place] Work Phone: Start: 06-17-2022 End: 39-84-7673dzhgqhyybdIfzdvyzs Rohrbacher Other [employer] [facility]mer[facility] [employer] Other Start: 87-86-6480Ewhvbrvfj encounterAmanda FordNomercy hospital south, formerly [facility] Intent HQrt: 06-16-2022 End: 56-19-2330gxescenlakTNTF Jennifer Rohrbacher Work Phone: [facility] Work Phone: Start: 06-16-2022 End: 78-73-5958Lmmixox encounter procedureAPRTanja Ford Work Phone: [facility] [place] Work Phone: Start: 06-10-2022 End: 26-60-0865Akypegpqoy and management of inpatientMD Mariam Appiah Work Phone: [facility] Work Phone: Start: 70-15-5602swqtuheuexp encounterMD Mariam Appiah Work Phone: [facility] Work Phone: Start: 06-09-2022 End: 19-10-3081vlskxfbrneXE Daniel G Cadigan Work Phone: [facility] Work Phone: Start: 06-09-2022 End: 54-12-9857Piqkmjb encounter procedureMD Mariam Appiah Work Phone: [facility] [place] Work Phone: Start: 04-26-2022 End: 39-72-1106fuskrfbvsyLprziaoj Rohrbacher Other [employer] Other Start: 49-88-5379Fwffogiyv encounterJennifer RohrbacherPeck Intent HQrt: 04-23-2022 End: 97-06-1494efuqhezmhrNqcxlikj Rohrbacher Other [employer] Other Start: 39-28-4413Ayojgtqmy encounterJennifer MerylrbacherPeck Intent HQrt: 04-21-2022 End: 15-99-7873Elkoaukr ReferredMD Mariam Appiah Work Phone: [facility] [place] Work Phone: Start: 04-21-2022 End: 82-45-8523pmvmjnpfmiAI Daniel G Cadigan Work Phone: [facility] Work Phone: Start: 86-16-4863Wdjzhj outpatient visit 15 minutes Amanda LopezMatheny Medical and Educational CenterStart: 04-20-2022 End: 71-55-2495rditvjacwlCyopiell Rohrbacher Other [employer] Other Start: 51-18-3638Ifrtngspx encounterJennifer MerylrbacherFMatheny Medical and Educational CenterStart: 04-13-2022 End: 36-83-3671hjcbjejlcxXnrqujjr Rohrbacher Other [employer] Other Start: 55-65-6004Qhqlijaxj encounterJennifer MerylrbacherNomercy hospital south, [facility] Intent HQrt: 04-10-2022 End: 66-90-3372Zclxbckco department patient visitMD Mariam Appiah Work Phone: [facility] Work Phone: Start: 04-08-2022 End: 12-76-0902Pydqknfia department patient visitMD Mariam Appiah Work Phone: [facility] Work Phone: Start: 03-30-2022 End: 29-47-0813hfyxiajpudEtqcysio Rohrbacher Other [employer] Other Start: 24-30-7837Wmufyccnw encounterJennifer MerylrbacherFOak Valley Hospital ClintonStart: 03-23-2022 End: 88-76-8745Kbyycbs encounter procedureMD Mariam Appiah Work Phone: [facility] ClintonStart: 03-23-2022 End: 15-31-3556eqpgaobzcfHvhgyuaw Rohrbacher Other [employer] Other Start: 87-47-3054Yfwosz outpatient visit 15 minutes Amanda Lopez [facility] ClintonStart: 03-17-2022 End: 27-37-9584gsxloqbteyRcocjjbx Rohrbacher Other [employer] Other Start: 56-09-8168Ihfsnzugh encounterJennifer MerylrbacherFPG Family [facility] ClintonStart: 02-08-2022 End: 65-46-1262kjkkppnvagDeaifpsl Rohrbacher Other [employer] Other Start: 54-05-8008Clsbdi outpatient visit 25 minutes Amanda JohnMatheny Medical and Educational CenterStart: 09-01-2021 End: 23-95-5078Xzaygjg encounter Afshan Thompson [facility] Start: 08-25-2021 End: 17-91-0272Clnetmw encounter Afshan Thompson [facility] Start: 08-06-2021 End: 47-28-8144Twleayc encounter Afshan Thompson [facility] Start: 07-24-2021 End: 59-37-6854Zepiemp encounter Afshan Thompson [facility] Start: 07-23-2021 End: 37-41-1036hsgrfhjcdxBzmuxbya Rohrbacher Other [employer] Other Start: 34-17-3150Dgowdanas encounterJennifer RohrbacherNort MaulSoup CoStart: 07-16-2021 End: 72-23-2694zbwejnpxyzKzwhlwai Rohrbacher Other [employer] Other Start: 07-00-0779Twhfqv outpatient new 30 minutes Amanda LopezMatheny Medical and Educational CenterStart: 03-30-2021 End: 29-21-5957Yjnwvrwii department patient visitBONDUEL ALBERTOSamaritan North Health Centertart: 05-06-2020 End: 03-34-7732zcerrxdswyHWOQAKJMarietta Osteopathic Clinic Start: 05-06-2020 End: 33-50-9003Rxpislguxb hospital visit by Magui Olivera Work Phone: stvz 2C Ortho/Med SurgComment on above:Post-op pain (Primary Dx)Start: 05-02-2020 End: 29-19-3793Zeiiouo encounter procedureLU Colt [facility] HospitalStart: 05-02-2020 End: 15-06-6157Creinaxwjh hospital visit by physicianStcdoroteo Covid Screening ScheduleSTCZ Covid ScreeningComment on above:Pre-op testing (Primary Dx)Start: 04-22-2020 End: 30-27-9696fyuscobktxILXVLGRTogus VA Medical Center Start: 04-22-2020 End: 67-18-0522qawtlnceadZSLMQSWTogus VA Medical Center Start: 04-22-2020 End: 08-13-7660Bymtfsboky hospital visit by physicianSfatoumata C-Arm [address] [place] [address] RadiologyComment on above:ArrivedStart: 04-22-2020 End: 54-32-0103Vusppmlcbu hospital visit by physicianSraisa [facility] 2STVZ Pre-Admit Testing Procedures DateProcedureProcedure DetailPerforming ClinicianStart: 12-06-1080Pmgsu dip stick/tablet rgnt non-auto w/o micrscpAmy Kwaku OGDEN Work Phone: Start: 06-06-3773Ixbnh dip stick/tablet rgnt non-auto w/o micrscpKristina Lowell CRAWFORD Work Phone: Start: 62-43-3634BOC THYROID STIM HORMONECorey Juan DO Work Phone: Start: 62-63-2307XEL CBC WITH AUTO DIFFJojo OGDEN Work Phone: Start: 11-72-2848YSPMYMJ 1 HOURJojo OGDEN Work Phone: Start: 38-74-4399Ybnqx dip stick/tablet rgnt non-auto w/o micrscpAmy Kwaku PA Work Phone: Start: 78-57-6224BZF UA (CLEAN/CATCH) CERAMICS TECHNICIAN/MICRO IF IND.Les Juan DO Work Phone: Start: 28-28-9302XIO URINE MICROSCOPIC ONLYCorey Juan DO Work Phone: Start: 50-91-1022Wnrok dip stick/tablet rgnt auto w/o microscopyRichard A Visci DO Work Phone: start: 10-68-0595IWCOZGYYU VAGINITIS (HTRX)Les Juan DO Work Phone: Start: 12-63-2243XHC THYROID STIM HORMONECorey Juan DO Work Phone: Start: 73-59-2946Otopk dip stick/tablet rgnt non-auto w/o micrscpCorey Juan DO Work Phone: Start: 83-49-7930Mxeuo dip stick/tablet rgnt non-auto w/o micrscpCorey Juan DO Work Phone: Start: 20-61-8249IDFSDORK LAB TESTNot In System Ref ProvStart: 59-54-6742Zpcidvil identification testAmanda Ford CONTRACT COORDINATOR Work Phone: Start: 64-48-1086Qdcxrxlnmxdem of growth of fungi Amanda Shethbilly CONTRACT COORDINATOR Work Phone: Start: 95-27-8341Dlmktcntole vaginalis detection Amanda Hahnnikkie CONTRACT COORDINATOR Work Phone: Start: 68-73-7994Knewb cultureAmanda Shethsarahangelnikkie CONTRACT COORDINATOR Work Phone: Start: 06-74-4591Ezlfnjtjtr ultrasound of gravid uterusAmanda Logan CONTRACT COORDINATOR Work Phone: Start: 97-85-3792FIRTFMTD LAB TESTNot In System Ref ProvStart: 36-73-7248ETA TESTCorey Juan DO Work Phone: Start: 68-45-8860Vgfcvjdf rubellaNot In System Ref ProvStart: 48-31-3672Jfyetcxl Zak Lindquist MD Work Phone: Start: 86-40-0289Asvddqojef glycosylated b2aEqmqkcxm Provider ExternalStart: 73-58-1659UUM 1&2 AB/AG SCREEN (P24 AG)Not In System Ref ProvStart: 00-58-6508Abzu ia hepatitis b surface antigenNot In System Ref Prov Start: 32-65-9071RHURSLCF TOTAL(UNKNOWN SYPHILIS STATUS)Not In System Ref Prov Start: 44-44-8007GZHR AND SCREENNot In System Ref ProvStart: 09-21-2024 ULTRASOUND OFFICENot In System Ref ProvStart: 27-25-5026Spihx dip stick/tablet rgnt non-auto w/o micrscpCorey Juan DO Work Phone: Start: 10-71-6399Da preg uterus after 1st trimest 04/18 gestationLiliana G David CONTRACT COORDINATOR.DEPLOYMENT SPECIALIST Work Phone: Start: 74-08-2122My preg uterus after 1st trimest / gestationLiliana G David CONTRACT COORDINATOR.DEPLOYMENT SPECIALIST Work Phone: Start: 70-46-6464Vf pelvic nonobstetric real-time image Nydia Guy MD Work Phone: start: 98-44-4517Vqocahhl screenLILIANA MICKEYComment on above:Order Comment: Specimen Type: BLOOD SPECIMEN Ordering Facility: [facility] Address: [address] [place] [address]Rejibidgr By: #### TSPN #### [facility] CLIA [id number] [place] [address] [place] AMERICAStart: 74-64-6182NWH,APTIMA HPV,AGE GDLN Les Juan DO Work Phone: Start: 51-42-6556Upqwzfyoorc observation [Identifier] in Cervix by Rose Enriquez PhD Work Phone: Start: 18-23-1161NB Shoulder Scope RCR/Biceps Tendon (Right)CONTRACT COORDINATOR Amanda Logan Work Phone: Start: 57-82-5203Aeeuaoqv tomography of abdomen and pelvis with contrastMD Mariam Appiah Work Phone: Start: 44-72-1787Itotnfzkm for occult blood in fecesMD Mariam Appiah Work Phone: Start: 11-83-6926Awtjt cultureMD Mariam Appiah Work Phone: Start: 91-09-2310Wkmar cultureMD Mariam Appiah Work Phone: Start: 03-93-3937Oecyh X-ray of right shoulderMD Mariam Appiah Work Phone: Start: 64-17-1054Umnav metabolic panel calcium total Rei Work Phone: Start: 83-82-4760Pnjad count complete auto&auto difrntl wbcMichael A Montez Work Phone: Start: 37-67-8324Tusyp esophagusGregdriss Olivera Work Phone: Start: 71-25-9914Tqrpd metabolic panel calcium total Rashard Gilmore Olivera Work Phone: Start: 87-84-2883Asvlv count complete automatedGregory R Olivera Work Phone: Start: 51-84-9566Dfamf metabolic panel calcium total Rashard R Olivera Work Phone: Start: 17-62-7553Wklxq count complete automatedGregory R Olivera Work Phone: Start: 05-06-2020 End: 69-88-8560GIOZKCQLMIV SLEEVE LAPAROSCOPIC ROBOTICGregdriss Gilmore Olivera Work Phone: Start: 69-70-2126Vfwrm test visual color cmprsn methsGregory R Olivera Work Phone: Start: 01-53-3529Cbrop iv surg pathology gross&microscopic examRashard Olivera Work Phone: Start: 72-60-1471Iwagqnrqdr exam chest 2 viewsRashard Olivera Work Phone: Start: 44-61-1063Kfftf of nicotineRashard Olivera Work Phone: Start: 81-28-5390Fwxds metabolic panel calcium total Rashard Olivera Work Phone: Start: 55-80-7854Lhqvh count complete automatedRashard Olivera Work Phone: Start: 80-46-7577Vnhbypgrlwb timeRashard Olivera Work Phone: Start: 59-00-4063Trkgruiuicxein time partial plasma/whole bloodRashard Olivera Work Phone: Start: 09-98-3724Hpe routine ecg w/least 12 lds i&r onlyRashard Olivera Work Phone: Start: 85-92-8959QRD REPORTHpf ScanningCholecystectomy Samir Thompson Comment on above:2016 Plan of Treatment DateCare ActivityDetailAuthorStart: 32-59-5436POT Vaccine (1 - 1-dose 75+ series)RSV Vaccine (1 - 1-dose 75+ series)[facility]ertart: 2045 Zoster Vaccines (1 of 2)Zoster Vaccines (1 of 2)[facility] HospitalStwichita: 17-32-5176KXfC,Tdap and Td Vaccines (2 - Td or Tdap)DTaP,Tdap and Td Vaccines (2 - Td or Tdap)[facility] HospitalMoblication [employer] SystemStart: 12-25-2032 DTaP/Tdap/Td Vaccines (2 - Td or Tdap)DTaP/Tdap/Td Vaccines (2 - Td or Tdap) [facility] HospitalStwichita: 49-63-6570Ofsbx microalbumin profile DTaP,Tdap,Td Vaccine (2 - Td or Tdap)[facility]ertart: 19-15-2573Xrsdhzntw for malignant neoplasm of cervixGuernsey Memorial HospitalStart: 00-25-7094Silrk BMI ScreeningAdult BMI ScreeningProKettering Health Main Campus SystemStart: 38-21-4311Xcylzwp ScreeningTobacco ScreeningProKettering Health Main Campus SystemStart: 12-05-2025 End: 82-94-6700TF MFM with or without consultUS MFM with or without consult Imaging Routine Previous gastric bypass affecting , antepartum Hypothyroidism affecting in second trimester 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 ([facility]) Obesity affecting in second trimester, unspecified obesity type Encounter for supervision of resulting from assisted reproductive technology, antepartum Expected: 12/05/2025 (Approximate), Expires: 12/05/2025[facility] Work Phone: comment on above:Expected: 12/05/2025 (Approximate), Expires: 12/05/2025Start: 08-21-2025 End: 54-90-9978Lxvfnuk encounter procedureNOMS SH ENDOCRINOLOGYStart: 03-05-2025 End: 87-57-2784Kzwjgno encounter michhstww30/18/2025 11:15 AM EST Appointment [facility] - Ultrasound [address] [place] [address] EtwUciiffEast Ohio Regional Hospital - UltrasoundStart: 02-20-2025 End: 93-23-4933Nlwifbz encounter procedureNOMS BCP OBStart: 02-19-2025 End: 71-44-5973Zntyfmf encounter iqqvcnacu46/04/2025 1:00 PM EST Routine [facility] [address] [place], [id number] Les Martinez DO [address] [place] [address] NOMS [facility] OBGYNStart: 02-07-2025 End: 88-81-6731AG MFM with or without consultUS MFM with or without consult Imaging Routine Hypothyroidism affecting in second trimester headache in second trimester Previous gastric bypass affecting , antepartum 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 ([facility]) Expected: 02/07/2025, Expires: 02/07/2026[facility] Work Phone: comment on above:Expected: 02/07/2025, Expires: 02/07/2026Start: 02-07-2025 End: 48-48-8267Urkhkxf encounter obsjyfqbq88/23/2025 9:45 AM EDT Appointment [facility] [place] [address] [facility] [address] [place] [address] [phone] Medicine SherwoodStart: 02-06-2025 End: 78-26-5657Ikotakl encounter procedureNOMS Ricco OBGYNComment on above: ArrivedStart: 02-03-2025 End: 34-42-1473LU MFM with or without consultUS MFM with or without consult Imaging Routine Previous gastric bypass affecting , antepartum Hypothyroidism affecting in second trimester 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 ([facility]) Obesity affecting in second trimester, unspecified obesity type Expected: 02/03/2025 (Approximate), Expires: 01/04/2026[facility] Work Phone: comment on above:Expected: 02/03/2025 (Approximate), Expires: 01/04/2026Start: 01-30-2025 End: 50-62-9110Slssdhizssgr / ancillary services muuqdykywp61/15/2025 2:30 PM EDT Ancillary Procedure [facility] [address] [place] [address] [place] [phone] Ricco OBGYNStart: 01-16-2025 End: 21-76-2089NE for pregnancyUS OB follow up transabdominal approach Imaging Routine TSH (thyroid-stimulating hormone deficiency) Expected: 01/16/2025, Expires: 05/19/2025[facility] Work Phone: comment on above:Expected: 01/16/2025, Expires: 05/19/2025Start: 01-16-2025 End: 04-56-3355Pxbbfjl encounter procedureNO Yermo OBGYNComment on above: ArrivedStart: 01-03-2025 End: 27-04-3242Bcmengn encounter olbvauecf52/18/2025 2:15 PM EDT Appointment [facility] [place] [address] [place] [address] [phone] Medicine SherwoodStart: 12-19-2024 End: 77-49-2419IRJ panel - Blood by Automated countCBC Lab Routine Diabetes mellitus screening Expected: 12/19/2024 (Approximate), Expires: 12/19/2025[facility] Work Phone: comment on above:Expected: 12/19/2024 (Approximate), Expires: 12/19/2025Start: 12-19-2024 End: 62-94-1884Xhwfwkhztnj of glucose 1 hour after glucose challenge for glucose tolerance testGlucose tolerance, 1 hour Lab Routine Diabetes mellitus screening Expected: 12/19/2024 (Approximate), Expires: 12/19/2025NODC HealthcareComment on above:Expected: 12/19/2024 (Approximate), Expires: 12/19/2025Start: 12-19-2024 End: 43-04-7322Hwdfhbn encounter procedureNOMS [place] OBGYNComment on above: ArrivedStart: 75-25-4304EFWVQ-19 Vaccine ( season)COVID-19 Vaccine ( season)[facility] HospitaledicRegions Hospital SystemStart: 48-22-7065Urcockjja vaccination [facility]ertart: 12-05-2024 End: 43-96-0091Yqaxgga encounter procedureProAdena Health System US ImagingStart: 12-04-2024 End: 94-71-2060Yhqcyjmlrokz / ancillary services wufolbrzkz82/19/2025 8:30 AM EDT Ancillary Procedure [facility] LLANESN [address] [facility] [place] [address] [phone] [facility] OBGYNStart: 36-26-4452Xuzznxar admission [facility]art: 59-05-9750NyjpbbteuRegional Medical Centertart: 09-62-0148Ueztbyax identified in Urine by CultureUrine Culture [facility]art: 11-30-2024 End: 94-68-1168Qfnke [facility] Hospitaltart: 11-20-2024 End: 98-28-0243Bjlxi fetoprotein, maternalAlpha fetoprotein, maternal Lab Routine Need for maternal serum alpha-protein (MSAFP) screening ([facility]) Expected: 11/20/2024 (Approximate), Expires: 12/21/2024N[facility] HealthcareComment on above:Expected: 11/20/2024 (Approximate), Expires: 12/21/2024Start: 11-20-2024 End: 11-93-1977IP for pregnancyUS OB 14+ weeks anatomy scan Imaging Routine Screening, , for anatomic survey ([facility]) Expected: 11/20/2024 (Approximate), Expires: 02/20/2025[facility] HealthcareComment on above:Expected: 11/20/2024 (Approximate), Expires: 02/20/2025Start: 11-20-2024 End: 77-76-4029Gjrmeee encounter procedureNOMS BCP OBComment on above:Arrived Start: 10-22-2024 End: 54-33-5911Owbczys encounter qxatnpgws81/07/2025 11:20 AM EDT Routine [facility] [address] [place] [phone] Les Martinez, DO [address] [place] [address] NOMS BCP OBStart: 50-32-2312Uirffujl identified in Urine by CultureUrine [facility] Start: 71-03-4704Riznkxb CultureGenital [facility] Start: 57-52-7401Wweim [facility] Hospitaltart: 10-18-2024 [facility]: 09-20-2024 End: 10-06-6634GUG/RhABO/Rh Lab Routine Missed menses , unspecified gestational age Expected: 09/20/2024 (Approximate), Expires: 09/20/2025[facility] HealthcareComment on above:Expected: 09/20/2024 (Approximate), Expires: 09/20/2025Start: 09-20-2024 End: 43-70-2289Smjvi type and Indirect antibody screen panel - BloodType and screen Lab Routine Missed menses , unspecified gestational age Expected: 09/20/2024 (Approximate), Expires: 09/20/2025[facility] Work Phone: comment on above:Expected: 09/20/2024 (Approximate), Expires: 09/20/2025Start: 09-20-2024 End: 73-53-6454Qsoiu of abuse panel - Urine by Screen methodRapid drug screen, urine Lab Routine , unspecified gestational age Encounter for supervision of normal first in first trimester Expected: 09/20/2024 (Approximate), Expires: 09/20/2025N[facility] HealthcareComment on above:Expected: 09/20/2024 (Approximate), Expires: 09/20/2025Start: 09-13-2024 End: 66-63-3705gzpdwnzzpx95/29/2025 2:30 PM EDT Initial [facility] [address] MCPP [facility] OBStart: 09-13-2024 End: 95-41-8733Mzncispjrajd / ancillary services dwhyhgqpjz59/29/2025 2:00 PM EDT Ancillary Procedure [facility] [place] [address] PIHE [facility] OBStart: 09-03-2024 End: 02-03-7644Lhcsuln evaluation of patient and reportReproductive Endocrinology InfertilityComment on above: scanob scan, non ivfStart: 08-22-2024 End: 058450-zvkmjutaywuzik D3 [Mass/volume] in Serum or PlasmaVitamin D 25 hydroxy Lab Routine H/O gastric bypass Vitamin D deficiency Expected: 08/22/2024 (Approximate), Expires: 08/22/2025[facility] HealthcareComment on above: Expected: 08/22/2024 (Approximate), Expires: 08/22/2025Start: 08-22-2024 End: 70-48-6470Hetbjqylq (Vitamin B12) [Mass/volume] in Serum or PlasmaVitamin B12 Lab Routine H/O gastric bypass Expected: 08/22/2024 (Approximate), Expires: 08/22/2025[facility] HealthcareComment on above:Expected: 08/22/2024 (Approximate), Expires: 08/22/2025Start: 08-22-2024 End: 81-72-0081Cvhiqfrk (aka Vitamin B1)Thiamine (aka Vitamin B1) Lab Routine H/O gastric bypass Expected: 08/22/2024 (Approximate), Expires: 08/22/2025[facility] HealthcareComment on above:Expected: 08/22/2024 (Approximate), Expires: 08/22/2025Start: 08-22-2024 End: 82-18-5010Vjrriiqbwsq [Units/volume] in Serum or PlasmaTSH Lab Routine Abnormal thyroid function test Expected: 08/22/2024 (Approximate), Expires: 08/22/2025[facility] HealthcareComment on above:Expected: 08/22/2024 (Approximate), Expires: 08/22/2025Start: 08-22-2024 End: 28-79-6297Hzhzsazzi (T4) free [Mass/volume] in Serum or PlasmaT4, free Lab Routine Abnormal thyroid function test Expected: 08/22/2024 (Approximate), Expires: 08/22/2025[facility] HealthcareComment on above:Expected: 08/22/2024 (Approximate), Expires: 08/22/2025Start: 08-22-2024 End: 60-70-6242Frskrrgyysdozxyq (T3) Free [Mass/volume] in Serum or PlasmaT3, free Lab Routine Abnormal thyroid function test Expected: 08/22/2024 (Approximate), Expires: 08/22/2025[facility] Work Phone: Comment on above:Expected: 08/22/2024 (Approximate), Expires: 08/22/2025Start: 08-22-2024 End: 96-69-9039Pjmmsep encounter pydatopjs98/07/2025 10:00 AM EDT Office Visit [facility] [address] [place] [phone] Darleen Sinclair MD [address] [place] [address] ArrivedNOMS ENDOCRINOLOGYComment on above:Arrived Start: 08-20-2024 End: 58-75-1139DMWKYIQTT ULTRASOUND WHIOBSTETRIC ULTRASOUND WHI Anc Imaging Routine resulting from assisted reproductive technology in first trimester ([facility]) Expected: 08/20/2024, Expires: 08/20/2025[facility] Work Phone: Comment on above:Expected: 08/20/2024, Expires: 08/20/2025Start: 08-20-2024 End: 70-39-4201wuzvhxlafv25/05/2025 8:30 AM EDT [facility] Reproductive Endocrinology Infertility [address] [place] [address] Melodie Hernandez, CONTRACT COORDINATOR.DEPLOYMENT SPECIALIST [address] [place] [address] preg apptReproductive Endocrinology Infertility Comment on above:preg apptStart: 07-07-2024 End: 95-68-2109Cldvidt encounter procedureMahnomen [facility] Comment on above:donor thawiui dStart: 05-09-2024 End: 25-29-9773smdzvsatpa24/22/2025 8:00 AM EST [facility] Reproductive Endocrinology Infertility [address] [place] [address] Melodie Hernandez, CONTRACT COORDINATOR.DEPLOYMENT SPECIALIST [address] [place] [address] donor sperm teachReproductive Endocrinology InfertilityComment on above:donor sperm teachStart: 34-26-3857Orwplox referral [facility] Work Phone: Start: 03-11-2024 End: 477584-snhobaqewnrxux D3 [Mass/volume] in Serum or PlasmaVITAMIN D 25 HYDROXY Lab Routine Reproductive mgmt, 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 Expected: 03/11/2024, Expires: 06/10/2024[facility] ClinicComment on above:Expected: 03/11/2024, Expires: 06/10/2024Start: 03-11-2024 End: 01-22-0988ERGSDEQ SCREEN, EXPANDEDCARRIER SCREEN, EXPANDED Lab Routine Encounter for other genetic testing of female for procreative management Expected: 03/11/2024, Expires: 06/10/2024[facility] ClinicComment on above: Expected: 03/11/2024, Expires: 06/10/2024Start: 03-11-2024 End: 41-83-5838Tlivudlnj trachomatis+Neisseria gonorrhoeae DNA [Presence] in Unspecified specimen by AC with probe detectionGONORRHEA/CHLAMYDIA NAAT Lab Routine Special screening examination for infectious diseases Expected: 03/11/2024, Expires: 06/10/2024[facility] ClinicComment on above:Expected: 03/11/2024, Expires: 06/10/2024Start: 03-11-2024 End: 01-18-4540Nmvjjrvqzcypadq IgG Ab [Units/volume] in Serum or PlasmaCMV IGG ANTIBODY BL Lab Routine Special screening examination for infectious diseases Expected: 03/11/2024, Expires: 06/10/2024[facility] ClinicComment on above: Expected: 03/11/2024, Expires: 06/10/2024Start: 03-11-2024 End: 25-17-2177Bkfqftvhsuchmky IgM Ab [Units/volume] in Serum or PlasmaCMV IGM AB Lab Routine Special screening examination for infectious diseases Expected: 03/11/2024, Expires: 06/10/2024[facility] ClinicComment on above:Expected: 03/11/2024, Expires: 06/10/2024Start: 03-11-2024 End: 78-98-0706Xqblajmxyo A1c in BloodHEMOGLOBIN A1C Lab Routine Reproductive mgmt, 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 Expected: 03/11/2024, Expires: 06/10/2024 [facility] SystemComment on above:Expected: 03/11/2024, Expires: 06/10/2024Start: 03-11-2024 End: 11-50-2300Ndhvzshbg B virus core Ab [Presence] in SerumHEPATITIS B CORE ANTIBODY TOTAL Lab Routine Special screening examination for infectious diseases Expected: 03/11/2024, Expires: 06/10/2024[facility] ClinicComment on above: Expected: 03/11/2024, Expires: 06/10/2024Start: 03-11-2024 End: 59-83-1378Fhdjmyrhr B virus surface Ag [Presence] in SerumHEPATITIS B SURFACE ANTIGEN Lab Routine Special screening examination for infectious diseases Expected: 03/11/2024, Expires: 06/10/2024[facility] ClinicComment on above:Expected: 03/11/2024, Expires: 06/10/2024Start: 03-11-2024 End: 88-68-8629Phcztdirk C virus Ab [Presence] in SerumHEPATITIS C ANTIBODY IA WITH CONFIRMATION Lab Routine Special screening examination for infectious d iseases Expected: 03/11/2024, Expires: 06/10/2024[facility] ClinicComment on above:Expected: 03/11/2024, Expires: 06/10/2024Start: 03-11-2024 End: 28-53-6230ACU 1+2 Ab [Presence] in Serum or Plasma by ImmunoassayHIV 1/2 COMBO WITH REFLEX TO DIFFERENTIATION Lab Routine Special screening examination for infectious diseases Expected: 03/11/2024, Expires: 06/10/2024[facility] ClinicComment on above:Expected: 03/11/2024, Expires: 06/10/2024Start: 03-11-2024 End: 90-86-6691YTPMWJG IGG ANTIBODYRUBELLA IGG ANTIBODY Lab Routine Special screening examination for infectious diseases Expected: 03/11/2024, Expires: 06/10/2024[facility] ClinicComment on above:Expected: 03/11/2024, Expires: 06/10/2024Start: 03-11-2024 End: 40-34-5658WQZZERXK TREPONEMAL W/REFLEXSYPHILIS TREPONEMAL W/REFLEX Lab Routine Special screening examination for infectious diseases Expected: 03/11/2024, Expires: 06/10/2024[facility] ClinicComment on above:Expected: 03/11/2024, Expires: 06/10/2024Start: 03-11-2024 End: 66-45-4333RAFD + SCREEN PRENATALTYPE + SCREEN Blood Bank Routine Reproductive mgmt, 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 Expected: 03/11/2024, Expires: 06/10/2024[facility] ClinicComment on above:Expected: 03/11/2024, Expires: 06/10/2024Start: 03-11-2024 End: 02-32-5396GWLROBCKG ZOSTER IGGVARICELLA ZOSTER IGG Lab Routine Special screening examination for infectious diseases Expected: 03/11/2024, Expires: 06/10/2024[facility] Work Phone: Comment on above:Expected: 03/11/2024, Expires: 06/10/2024Start: 03-09-2024 End: 30-22-4145ycfpktiois06/22/2024 10:00 AM EST [facility] Reproductive Endocrinology Infertility [address] [place] [address] Melodie Hernandez APRN.DEPLOYMENT SPECIALIST [address] [place] [address] Donor sperm teachReproductive Endocrinology InfertilityComment on above:Donor sperm teachStart: 02-20-2024 End: 59-69-7544Iumbewd encounter khlktixdx84/04/2024 2:50 PM EST Office Visit [facility] [address] [facility] [place] [phone] Les Martinez, DO [address] [place] [address] ArrivedNOMS BCP OBComment on above:ArrivedStart: 81-99-5831Gkztu-19 Vaccine ( season)Covid-19 Vaccine ( season)[facility]: 83-11-2572Orrqe-19 Vaccine ( season) Covid-19 Vaccine ( season)[facility]art: 45-18-5979Ivqccbcip vaccinationInfluenza Vaccine (#1)[facility]Start: 12-07-2023 End: 30-08-2697GbfkwaqekRegional Medical Centertart: 10-44-3852QzfonnpuxRegional Medical Centertart: 34-33-9284ZzdncskslRegional Medical Centertart: 39-97-4240TeqlhymunRegional Medical Centertart: 08-60-5153XzxoplyeqRegional Medical Centertart: 06-11-2022 End: 27-80-1121OgxvcnyndRegional Medical Centertart: 97-22-9853Hiwyvegz admissionRegional Medical Centertart: 38-31-9403WrslinmsaRegional Medical Centertart: 37-62-6432RolhlfhwnRegional Medical Centertart: 77-67-7266BbhwlzlbcRegional Medical Centertart: 92-00-9789Jebancyg identified in Urine by CultureUrine CultureRegional Medical Centertart: 38-26-0292Sgweyxth identified in Urine by CultureUrine CultureRegional Medical Centertart: 05-16-2020 End: 79-36-4097Zapmwp Visit05/16/2020 Office Visit Rashard Woodruff, [address] [id number] Camille Linton Invasive Bariatric SurgStart: 05-06-2020 End: 48-46-6176Lqqyjzvw EncounterSTZ ORComment on above:XI LAPAROSCOPIC ROBOTIC GASTRIC BYPASS BEN-EN-Y, LIVER BIOPSY, EGD- GI UNIT SCHEDULED.Start: 05-02-2020 End: 80-04-2259KIBKS-COVID-19 Lab Routine Pre-op testing Expected: 05/02/2020, Expires: 05/01/2021[facility], KYComment on above:Expected: 05/02/2020, Expires: 05/01/2021tart: 05-02-2020 End: 77-35-8161Ztsxbj VisitC[facility] Invasive Bariatric SurgStart: 15-09-1183PBO QnTSH testingWilson Health: 56-82-1117Qmyiryljx vaccinationFlu vaccine (#1)[facility]: 72-49-1953Ictphmmmp for malignant neoplasm of cervixSamaritan North Health Centertart: 80-97-7729YZyC,Tdap and Td Vaccines (1 - Tdap)DTaP,Tdap and Td Vaccines (1 - Tdap)[facility] Cleveland[facility]art: 19-38-2629XKlV/Tdap/Td vaccine (1 - Tdap)DTaP/Tdap/Td vaccine (1 - Tdap)[facility]: 07-37-4899Ydivyckny B Vaccine (1 of 3 - 19+ 3-dose series) Hepatitis B Vaccine (1 of 3 - 19+ 3-dose series)[facility]: 79-30-8599Bddtohtpc B Vaccines (1 of 3 - 19+ 3-dose series)Hepatitis B Vaccines (1 of 3 - 19+ 3-dose series)[facility]Start: 2014 Urine microalbumin profileDTaP,Tdap,Td Vaccine (1 - Tdap)[facility]ertart: 53-22-2027Daosv BMI Follow Up PlanAdult BMI Follow Up PlanAtrium Health Clevelandtart: 06-00-5770Fdqjj BMI ScreeningAdult BMI ScreeningAtrium Health Clevelandtart: 51-29-7586Ycsvaem ScreeningAnxiety ScreeningSamaritan North Health Centertart: 13-77-7314Yimivxrkog ScreeningDepression ScreeningSamaritan North Health Centertart: 85-59-8911Rkotnolle C screeningHepatitis C ScreeningSamaritan North Health Centertart: 28-08-2232QOG screeningHIV ScreeningSamaritan North Health Centertart: 30-33-1353PZR screeningHIV screenWilson Health: 36-20-7144Azchblnxn vaccination Varicella Vaccines (1 of 2 - 13+ 2-dose series)[facility] Start: 60-86-1442Lkzrdradjn ScreeningDepression ScreeningGuernsey Memorial Hospital Start: 61-01-8858Oelucnr ScreeningTobacco ScreeningAtrium Health Clevelandtart: 15-81-2327VTT vaccine (1 - 2-dose series)HPV vaccine (1 - 2-dose series)[facility]: 47-00-7050HDX Vaccines (1 of 1 - Standard series)MMR Vaccines (1 of 1 - Standard series)[facility]: 47-60-0218Ulzwkulbv vaccine (1 of 2 - 2-dose childhood series)Varicella vaccine (1 of 2 - 2-dose childhood series)[facility]: 75-52-0350Ogidfgzco C screeningHepatitis C screenWilson Health: 31-49-3569FUL screening HIV ScreeningSelect Medical Specialty [facility] [place]-[facility]: 44-48-0518Mvnas panelLipid PanelSelect Medical Specialty Hospital - [facility]: 39-39-3142Jrsgfp Adult Physical Yearly Adult PhysicalUnCleveland Clinic Medina HospitalaPT in Platelet poor plasma by Coagulation assayDelaware County HospitalBacteria identified in Genital specimen by Aerobe cultureDelaware County HospitalBacteria identified in Urine by CultureUrine culture Microbiology Routine Missed menses Ordered: 09/20/2024[facility] HealthcareComment on above:Ordered: 09/20/2024alcitriol [Mass/volume] in Serum or PlasmaDelaware County HospitalCBC W Auto Differential panel - BloodCBC and differential Lab Routine Missed menses , unspecified gestational age Ordered: 09/20/2024[facility] HealthcareComment on above:Ordered: 09/20/2024HLAMYDIA TRACHOMATIS (GENITO/STI)CHLAMYDIA TRACHOMATIS (GENITO/STI) Lab Routine Exposure to STD Ordered: 11/20/2024[facility] HospitalComment on above:Ordered: 11/20/2024ontinuous pulse oximetryPulse oximetry, continuous Respiratory Care Routine Every 4hr until discontinued starting 05/06/2020[place], [place]:Every 4hr until discontinued starting 05/06/2020T Abdomen and Pelvis WO and W contrast IV Delaware County HospitalCytology Cervical or vaginal smear or scraping studyPap Smear Pathology and Cytology Routine Well woman exam with routine gynecological exam Ordered: 02/20/2024[facility] Healthcare Work Phone: comment on above:Ordered: 02/20/2024Electromyography [facility] County HospitalF5 gene mutations found [Identifier] in Blood or Tissue by Molecular genetics method NominalDelaware County Hospital Factor VIII: C assayDelaware County HospitalGlucose measurement estimated from glycated hemoglobinDelaware County HospitalHemoglobin A1c/Hemoglobin.total in BloodDelaware County HospitalHemoglobin A1c/Hemoglobin.total in BloodHemoglobin A1c Lab Routine Missed menses , unspecified gestational age Ordered: 09/20/2024[facility] HealthcareComment on above: Ordered: 09/20/2024Hepatitis B virus surface Ag [Presence] in Serum or Plasma by ImmunoassayHepatitis B surface antigen Lab Routine Missed menses , unspecified gestational age Ordered: 09/20/2024[facility] HealthcareComment on above: Ordered: 09/20/2024Hepatitis C virus Ab [Presence] in Serum or Plasma by ImmunoassayHepatitis C antibody Lab Routine Missed menses , unspecified gestational age Ordered: 09/20/2024[facility] HealthcareComment on above:Ordered: 09/20/2024HIV-1/HIV-2 antigen/antibody combination immunoassayHIV-1 and HIV-2 antibodies Lab Routine Missed menses , unspecified gestational age Ordered: 09/20/2024[facility] HealthcareComment on above:Ordered: 09/20/2024INR in Platelet poor plasma by Coagulation assayDelaware County Hospital Mullerian inhibiting substance [Mass/volume] in Serum or PlasmaDelaware County HospitalNebulizer therapyHHN Treatment Respiratory Care Routine TID until discontinued starting 05/06/2020[facility] [place]Comment [place]: TID until discontinued starting 05/06/2020Neisseria gonorrhoeae DNA [Presence] in Unspecified specimen by AC with probe detectionNeisseria gonorrhea DNA probe, direct Lab Routine Exposure to STD Ordered: 11/20/2024[facility] Healthcare Comment on above:Ordered: 11/20/2024Oxygen therapy [Minimum Data Set]Initiate Oxygen Therapy Protocol Respiratory Care Routine Daily until discontinued starting 05/06/2020[facility] [place], [place]Comment [place]:Daily until discontinued starting 05/06/2020[facility] Work Phone: [facility] referralAvita Health System Ctr Work Phone: Reagin Ab [Presence] in Serum by RPRRPR Lab Routine Missed menses , unspecified gestational age Ordered: 09/20/2024[facility] HealthcareComment on above:Ordered: 09/20/2024Rubella antibody, IgGRubella antibody, IgG Lab Routine Missed menses , unspecified gestational age Ordered: 09/20/2024[facility] HealthcareComment on above:Ordered: 09/20/2024Spirometry panelIncentive spirometry Respiratory Care Routine Every 2hr while awake until discontinued starting 05/06/2020[facility], [place] above:Every 2hr while awake until discontinued starting 05/06/2020URESWAB(R) ADVANCED VAGINITIS PLUS, TMASURESWAB(R) ADVANCED VAGINITIS PLUS, TMA Pathology and Cytology Routine Exposure to STD Ordered: 11/20/2024[facility] Work Phone: comment on above:Ordered: 11/20/2024Surgical Pathology Surgical Pathology Lab Routine Release Upon Ordering for 1 Occurrences starting 05/06/2020[facility], [place]Comment [place] above:Release Upon Ordering for 1 Occurrences starting 05/06/2020 End: 83-22-7171Zsorjmtvqez [Units/volume] in Serum or PlasmaTSH Lab Routine Thyroid disease every 4 weeks for 6 Occurrences starting 11/20/2024 until 11/20/2025[facility] HealthcareComment on above:every 4 weeks for 6 Occurrences starting 11/20/2024 until 11/20/2025Thyrotropin [Units/volume] in Serum or PlasmaTSH Lab Routine TSH (thyroid-stimulating hormone deficiency) Ordered: 01/16/2025[facility] HealthcareComment on above:Ordered: 01/16/2025von Willebrand factor (vWf) Ag [Units/volume] in Platelet poor plasmaDelaware County Hospitalvon Willebrand factor (vWf) multimers in Platelet poor plasma by [facility] Centervon Willebrand factor (vWf) ristocetin cofactor actual/normal in Platelet poor plasma by Platelet ag [facility] Immunizations Immunization DateImmunizationNotesCare CuebcldgDnqcipsr90-50-0899kunzyoa toxoid, reduced diphtheria toxoid, and acellular pertussis vaccine, adsorbedAhmad Dottie MD Work Phone: [facility] HospitalEivimerjgz27-22-7055JHOMG-78 mRNA-1273 (Moderna) MELY Ford Work Phone: [facility]04-06-2021COVID-19 mRNA-1273 (Moderna)MELY Ford Work Phone: [facility] Payers DatePayer CategoryPayerPolicy [id number]-kng [id number] 2023Medicaid [id number] [id number] [id number] 1.2.840.947153.1.13.239.2.7.3.838418.77413-33-5173Jutrawa [id number] 2.840.1.863730.3.57[id number] 2.0.1.175864.3.57[id number] 2.0.1.093284.3.57[id number] 2.0.1.808740.3.57[id number] 2.840.1.615835.3.57[id number] 2.840.1.812590.3.57[id number] 2.840.1.806705.3.57[id number] 2.840.1.460498.3.579.[id number] 2.840.1.992529.3.57[id number] 2.840.1.295049.3.57[id number] 2.0.1.208107.3.57[id number] 2.840.1.837177.3.57[id number] 2.0.1.373825.3.57[id number] 2.0.1.384697.3.57[id number] 2..1.248599.3.579.2.157079-71-2193Bclwayz03143224 2.840.1.410027.3.57[id number] 2..1.170698.3.57[id number] 2.840.1.181907.3.579.2.609085-25-2781Oxrtdqf36346170 2.840.1.762742.3.57[id number] 2.840.1.314858.3.579.2.6[id number] 2.840.1.364612.3.579.[id number] 2..840.1.943604.3.579.2.976017-14-3334Bxagfkj20446399 2.16.840.1.719638.3.579.2.660894-55-6976Kyvdadr65939809 2..840.1.853673.3.579.2.366593-71-0903Egwauvb0423830 2..840.1.630503.3.579.2.883327-22-6260Gvujjub3910275 2..840.1.550879.3.579.2.367010-20-2746Mnavmid932710080 2..840.1.682157.3.57[id number] 2.840.1.925962.3.579.2.1286[facility] Health Claims [id number] 2.8[id number] 2.840.1.101972.3.579.2.168Orbvxur48938537 2.0.1.579968.3.579.2.623Nmurjgp72162119 2.0.1.042091.3.579.2.531 Social History DateTypeDetailFacilityStart: 04-22-2020 End: 02-32-8780Ltjrndy smoking status NHISNever smokerWilson Health: 04-22-2020 End: 09-24-3008Uonidls use and exposureNever usedWilson Health: 04-22-2020 End: 97-17-2785Ryhqalq intakeCurrent non-drinker of alcohol (finding)[facility], [place]Start: 16-14-7165Wti Assigned At BirthNot on [facility], NORMAExposure to SARS-CoV-2 (event)Not [facility], [place]Start: 01-17-2023 Tobacco smoking statusNeverDelaware County Hospital CenterStart: 05-20-2020 End: 75-95-9159Jik Assigned At [facility] [employer] Other Start: 17-27-7310Kmj Assigned At [facility] SystemFeKettering Health Greene Memorialtart: 92-23-3186Kmuekkq smoking status NHISCurrent some day smokerRegional Medical Centertart: 04-18-2023 End: 56-20-7088Slzzkeb smoking status NHISSmoker (finding)[facility] Centertart: 11-28-2023 End: 54-69-6603Hvtmmce smoking status NHISSmokes tobacco dailyNOMS Healthcare Start: 54-99-7141Fwkgtyf of tobacco useCigarette SmokerNOMS HealthcareStart: 05-20-2020 End: 43-48-6501Crmdyjidxl smoked current (pack per day) - Reported0.5NOMS HealthcareStart: 11-28-2023 End: 92-13-4502Gvnwmwmhx beverage intakeEx-drinker (finding)[facility] Start: 97-96-3889Omibuvv Commentcaffeine: 1-2 cups per day teaNODC Healthcare Start: 45-88-3840Fdclqf identityIdentifies as female gender (finding)[facility] HealthcareStart: 11-21-2014 End: 81-68-8192KgiUhrgea (finding)[facility] HospitalTobacco smoking status NHISTobacco smoking consumption unknownKennedale ClinicStart: 51-30-3989AvtjbiucmDufpofgyvRegional Medical Centertart: 10-18-2024 End: 42-71-8057Qortlpf smoking status NHISEx-smoker (finding)[facility] HospitalNEGATED: Highlighted rowDelaware County Hospital Medical Equipment Procedure CodeEquipment CodeEquipment Original TextEquipment IdentifierDates Functional endoscopic sinus surgery (FESS) with sinuplastyBUTTON NASAL SEPTAL 3CMFDAStart: 61-79-2166Ermriuhhfd endoscopic sinus surgery (FESS) with sinuplastyBUTTON NASAL SEPTAL 3CMFDAStart: 61-92-3140Ndjvrekgsa endoscopic sinus surgery (FESS) with sinuplastyBUTTON NASAL SEPTAL 3CMFDAStart: 10-15-2019 Functional endoscopic sinus surgery (FESS) with sinuplastyBUTTON NASAL SEPTAL 3CMFDAStart: 86-44-8939Npjjxwfdcw endoscopic sinus surgery (FESS) with sinuplastyBUTTON NASAL SEPTAL 3CMFDAStart: 98-14-3126Mrfuoanooo endoscopic sinus surgery (FESS) with sinuplastyBUTTON NASAL SEPTAL 3CMFDAStart: 10-15-2019 Functional endoscopic sinus surgery (FESS) with sinuplastyBUTTON NASAL SEPTAL 3CMFDAStart: 37-48-6248Qfhxzhtfft endoscopic sinus surgery (FESS) with sinuplastyBUTTON NASAL SEPTAL 3CMFDAStart: 28-16-0053Gdwvcuirch endoscopic sinus surgery (FESS) with sinuplastyBUTTON NASAL SEPTAL 3CMFDAStart: 10-15-2019 Functional endoscopic sinus surgery (FESS) with sinuplastyBUTTON NASAL SEPTAL 3CMFDAStart: 26-84-9749Dyjjtnvggw endoscopic sinus surgery (FESS) with sinuplastyBUTTON NASAL SEPTAL 3CMFDAStart: 83-90-4111Hghddrqjet endoscopic sinus surgery (FESS) with sinuplastyBUTTON NASAL SEPTAL 3CMFDAStart: 10-15-2019 Functional endoscopic sinus surgery (FESS) with sinuplastyBUTTON NASAL SEPTAL 3CMFDAStart: 09-36-1113Xhhmscsxtu endoscopic sinus surgery (FESS) with sinuplastyBUTTON NASAL SEPTAL 3CMFDAStart: 99-68-9577Yqtizjhtxt endoscopic sinus surgery (FESS) with sinuplastyBUTTON NASAL SEPTAL 3CMFDAStart: 10-15-2019 Functional endoscopic sinus surgery (FESS) with sinuplastyBUTTON NASAL SEPTAL 3CMFDAStart: 45-23-1968Nrajsqpusq endoscopic sinus surgery (FESS) with sinuplastyBUTTON NASAL SEPTAL 3CMFDAStart: 03-41-1191Dbjofbcepq endoscopic sinus surgery (FESS) with sinuplastyBUTTON NASAL SEPTAL 3CMFDAStart: 10-15-2019 Functional endoscopic sinus surgery (FESS) with sinuplastyBUTTON NASAL SEPTAL 3CMFDAStart: 67-10-4811Qabbksyytb endoscopic sinus surgery (FESS) with sinuplastyBUTTON NASAL SEPTAL 3CMFDAStart: 03-54-1326Kovvkwvela endoscopic sinus surgery (FESS) with sinuplastyBUTTON NASAL SEPTAL 3CMFDAStart: 10-15-2019 Functional endoscopic sinus surgery (FESS) with sinuplastyBUTTON NASAL SEPTAL 3CMFDAStart: 09-11-2780Wwlnqq/ligament bone anchor, non-bioabsorbable ()[id number] FDAStart: 92-77-2962Ftkraf/ligament bone anchor, non-bioabsorbable([id number] FDA Start: 65-29-2477Silyzj/ligament bone anchor, non-bioabsorbable ()[id number] FDAStart: 89-61-8337Nysztd/ligament bone anchor, non-bioabsorbable()[id number] FDAStart: 12-07-2023 Goals DatePatient GoalDesired Activity/StatePersonal health goal Functional Status VzdkGkzpueitfzFostamEircfrlj03-52-5024Mtfyotlsoh statusPatient at Baseline [facility] Work Phone: [phone]) 855-16580741811-90-6233Ijcsqtoksd statusPatient at Baseline [facility] Work Phone: Mental Status KudnCbbkmudvjvAzxybuIhgspffp98-09-7500Cuecpuqpu functionCognitive Status [facility] Work Phone: 1(511) 745-383802587031-97-2341Pgywbtmbu functionCognitive Status [facility] Work Phone: Clinical Notes 07-16-2021 to 02-06-2025 Note Date & WgheZnylPrgarvas98-29-3646 History of Present illness Narrative* MELVI Engle - 02/06/2025 2:30 PM EDT [...] Vitals: Estimated body mass index is 39.77 kg/m as calculated from the following: Height as of 08/22/24: 5' 11 . Weight as of this encounter: 285 lb 1.9 oz. BP: 134/70 No LMP recorded. Patient is . Assessment/Plan ICD-10-CM 1. Third trimester ([facility] Z34.93 2. 29 weeks gestation of ([facility]) Z3A.29 POCT urinalysis dipstick manually resulted Return [...] behalf of: MELVI Engle documented in this encounterDavid [place]ille [address]Fxxnzzkwfs57-78-0934 History of Present illness Narrative* Mima Duenas, TY - 01/16/2025 11:20 AM EDT Reason for [...] nursing note reviewed. Exam conducted with a piano machine operator present. Vitals: Estimated body mass index is 38.49 kg/m as calculated from the following: Height as of 08/22/24: 5' 11 . Weight as of this encounter: 276 lb. BP: 122/80 No LMP recorded. Patient is . ASSESSMENT & PLAN ICD-10-CM 1. 26 weeks gestation of ([facility]) Z3A.26 POCT urinalysis dipstick manually resulted 2. Second trimester ([facility]) Z34.92 3. TSH (thyroid-stimulating hormone deficiency) E03.8 OB follow up transabdominal approach TSH Return [...] of: Mima Duenas NP documented in this encounterJefferson Memorial HospitalFidnhsgkwo42-49-3283 Miscellaneous Notes* Telephone Encounter - Roslyn Griffin RN - 01/03/2025 3:44 PM EDT Called patient to schedule her follow up survey in 4-6 weeks per appointment tracker. No answer left message to call back to schedule the follow up ultrasound. documented in this encounterGuernsey [facility] Hospital09-18-2025 Telephone encounter Note* Telephone Encounter - Roslyn Griffin RN - 01/03/2025 3:44 PM EDT Called patient to schedule her follow up survey in 4-6 weeks per appointment tracker. No answer left message to call back to schedule the follow up ultrasound. [facility]09-03-20[facility] History of Present illness Narrative* MELVI Engle - 12/19/2024 10:00 AM EDT Reason for Appointment: Patient ID: [...] PLAN ICD-10-CM 1. 22 weeks gestation of ([facility]) Z3A.22 POCT urinalysis dipstick manually resulted 2. Second trimester ([facility]) Z34.92 POCT urinalysis dipstick manually resulted 3. [...] behalf of: MELVI Engle documented in this encounterJefferson Memorial HospitalGhlntwtwza72-06-1884 History of Present illness Narrative* Enrike Lindquist MD - 12/05/2024 2:00 PM EDT Images [...] follows with the behavioral health up in [place] History of migraines. Has been getting some [...] Pee's thyroiditis Hx of iron deficiency anemia [place] product of in vitro fertilization (IVF) Ovarian [...] mouth in the morning., Disp: , Rfl: fl998-nwwd-rvprl acid ( 19) 29 mg iron- 1 [...] Calcium: recommend 1000-1200mg daily; if deficient, recommend 3164-2347 mg PO daily in divided doses Vitamin [...] 5. 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 The head chopper should be made awareat the time of [...] contact me if you have any concerns. Enrike Lindquist MD, FACOG (she/hers) Maternal- Medicine [facility] [address] [facility] 1[address] [place] [address] This document was created with [employer] technology. Though I make every effort to review the dictation as it is transcribed, on occasion the spoken word can be misinterpreted by the technology leading to inappropriate words, phrases, or sentences. This note is addressed to the requesting provider as a consultation for clinical guidance. Specificmedical abbreviations are occasionally used and those are generally approved by the [place]?Board of?Obstetrics and?Gynecology?as well as?Marilee s abbreviations. The above plan of care was based solely on the diagnoses for which a consultation was requested. ?More frequent testing may be indicated based on her other medical/obstetrical conditions. The management of other or medical conditions is beyond the scope of requested consultation and will c ontinue to be followed by the primary offset printing operator or primary care provider. Note to patient: [...] CF Have you been seen here at [facility] in a previous ? NA Recent ER visits or hospitalizations? See notes above Bring blood sugar log or meter with you today? (Please bring them with you for every visit at [facility]) NA Flu vaccine (Feb-June)? NA Any concerns that you would like me to mention to the provider today? Questions about glucose testing and her having gastric bypass surgery documented in this encounterGuernsey Memorial Hospital08-05-2025 History of Present illness Narrative* Alana Valverde LPN - 11/20/2024 8:40 AM EDT Reason for [...] nursing note reviewed. Exam conducted with a piano machine operator present. Vitals: Estimated body mass index [...] gonorrhea DNA probe, direct 3. Second trimester ([facility]) Z34.92 POCT urinalysis dipstick manually resulted 4. 18 weeks gestation of ([facility]) Z3A.18 5. Need for maternal serum alpha-protein (MSAFP) screening ([facility]) Z36.1 Alpha fetoprotein, maternal Alpha fetoprotein, maternal 6. Screening, , for anatomic survey ([facility]) Z36.89 OB 14+ weeks anatomy scan Return OB/Annual [...] of: Les Martinez DO documented in this encounterJefferson Memorial HospitalBffprhoxky98-65-7623 History of Present illness Narrative* Mima Duenas NP - 10/22/2024 11:20 AM EDT Reason for Appointment: Patient [...] nursing note reviewed. Exam conducted with a piano machine operator present. Vitals: Estimated body mass index is 31.24 kg/m as calculated from the following: Height as of 08/22/24: 5' 11 . Weight as of this encounter: 224 lb. BP: 110/62 No LMP recorded. Patient is . ASSESSMENT & PLAN ICD-10-CM 1. 13 weeks gestation of ([facility]) Z3A.13 POCT urinalysis dipstick manually resulted 2. Second trimester ([facility]) Z34.92 POCT urinalysis dipstick manually resulted 3. Thyroid disease E07.9 4. H/O gastric sleeve Z90.3 5. H/O iron deficiency anemia Z86.2 6. resulting from in vitro fertilization in first trimester ([facility]) O09.811 Return OB: Patient presents today for [...] routine OB appointment. History of gastric sleeve willmake referral to [facility]. Documented by Mima Duenas NP on behalf of: Les Martinez DO documented in this encounterJefferson Memorial HospitalHruacmgxis21-85-6491 Radiology Diagnostic study [facility] [place] [address] [place] [address] Ultrasound Report Signed Patient: Jaz Sanders MR#: [id number] : 1995 Acct:[id number] Age/Sex: 29 / F ADM Date: 5 Loc: ER Room: Type: [facility] ER Attending Dr: Ordering Provider: Kassidy [...] seen. Impression dictated by: Sravan Dickinson Jr., MiguelORenae 10/18/2024 2:21 PM Dictation Location: [place] [address] Tech: Natalie Raissa Transcribed By: MAITE 10/18/24 1421 Dictated By: Sravan Dickinson Jr, DO 10/18/24 1419 Signed By: 10/18/24 1421 [facility]06-05-2025 History of Present illness Narrative * Marsha Asif MA - 09/20/2024 2:30 PM EDT Reason for Appointment: Patient [...] screen, urine; Future Nurse Note: Patient declined S[facility] at this time. Patient is an IVF from [facility]. OB Intake: Patient presents today for first OB visit. Patients history has been reviewed in great detail including any potential risks. Patient signed consent forms and patient desires testing in both trimesters. Patient currently has no complaints and has been advised to drink 6-8 glasses of water a day, eatno raw or undercooked meat, and stay away from [facility]. Patient has also been advised to not change litter boxes and eat 6 small meals a day. Patient has been consulted regarding the do's and don'ts ofpregnancy. Patient was given labs and all questions [...] by: Marsha Asif MA documented in this encounterJefferson Memorial HospitalQalureekhk35-09-8798 NoteHNO ID: [id number] Author: MELODIE HERNANDEZ APRN.CNP Service: ? Author Type: Nurse Practitioner Type: Procedures Filed: 09/05/2024 22:45 Note Text: WHI JAMEL IUI PROCEDURE NOTE Date: 07/31/2024 Primary Proceduralist: Melodie Hernandez APRN.CNP Consents and Labels Consent Signed: Informed Consent obtained and on the chart Labels Verified With Patient: Yes Indications: Jaz Sanders, is a 29 year old female here today for intrauterine insemination. IUI # 3. Cycle Day: Last menstrual period: 07/19/2024 [place] Protocol: UNIVERSAL PROTOCOL / SAFETY CHECKLIST Procedure [...] no menses and call with results. SIGNATURE: Melodie Hernandez APRN.CNP PATIENT NAME: Jaz Sanders DATE: September 05, 2024 TIME: 10:45 [facility]05-19-2025 History of Present illness Narrative* Manisha Weaver APRN.CNP - 09/03/2024 5:39 PM EDT Jaz Sanders here today for a scan. [...] FHR: 114 Plan Move on to OB Manisha Weaver APRN.CNP September 03, 2024 5:39 PM documented in this encounterTr[facility] System05-19-2025 NoteHNO ID: [id number] Author: MANISHA WEAVER APRN.JARROD Service: ? Author Type: Nurse Practitioner Type: Progress Notes Filed: 09/03/2024 17:42 Note Text: aJz Sanders here today for a scan. This [...] FHR: 114 Plan Move on to OB Manisha Weaver APRN.DEPLOYMENT SPECIALIST September 03, 2024 5:39 [facility]05-15-2025 NoteHNO ID: [id number] Author: MIKEY TORRES MD Service: ? Author Type: Physician Type: Progress Notes Filed: 08/30/2024 16:36 Note Text: Viable ratliff IUP Size equal Date. Plan: patient to follow up with her ob for care. Stacy Banuelos [facility]05-15-2025 History of Present illness Narrative* Mikey Torres MD - 08/30/2024 4:36 PM EDT Viable ratliff IUP Size equal Date. Plan: patient to follow up with her ob for care. Stacy Banuelos MD * Melodie Hernandez APRN.CNP - 08/28/2024 5:31 PM EDT Jaz Sanders is here today for an [...] Plan: repeat scan next week as scheduled Melodie Hernandez APRN.CNP documented in this encounterTrinity Health System05-13-2025 NoteHNO ID: [id number] Author: MELODIE HERNANDEZ APRN.CNP Service: ? Author Type: Nurse [...] Plan: repeat scan next week as scheduled Melodie Hernandez [facility]N.[facility] Telephone encounter Note* Telephone Encounter - Melodie Hernandez APRN.CNP - 08/24/2024 5:35 PM EDT spoke with Jaz, she is having weird [...] Positive Positive hCG levels: 08/13 - 63.6 30 - 160.6 5/2 - 362.7 Plan: discussed pro's/con's of repeat [...] open slot. Call to patient needed: no [facility]05-09-2025 Miscellaneous Notes* Telephone Encounter - Melodie Hernandez APRN.CNP - 08/24/2024 5:35 PM EDT spoke with Jaz, she is having weird [...] levels: 08/13 - 63.6 08/15 - 160.6 5 - 362.7 Plan: discussed pro's/con's of repeat [...] open slot. Call to patient needed: no * Telephone Encounter - Angella Mccarthy - 08/23/2024 10:37 AM EDT Name: Jaz Sanders called today. : 1995 (home) [phone] (cell) Reason for call: pt called today informing the nurse she has been experiencing pain of level 4 from1-10. Pt has been experiencing pain for 2 day. 5 weeks today. The patients preferred pharmacy has been captured for this encounter? Angella Morillo Early Morning [facility] Telephone encounter Note * Telephone Encounter - Arminda Ward RN - 08/24/2024 1:58 PM EDT See 08/23/24 LIBBY Ward RN August 24, 2024 1:58 PM [facility]05-09-2025 Miscellaneous Notes* Telephone Encounter - Arminda Ward RN - 08/24/2024 1:58 PM EDT See 08/23/24 LIBBY Ward RN August 24, 2024 1:58 PM * Telephone Encounter - Manisha Ding - 08/24/2024 11:52 AM EDT Pt would like a call back documented in this encounterTr[facility]05-[facility]-2025 Telephone encounter Note * Telephone Encounter - Manisha Ding - 08/24/2024 11:52 AM EDT Pt would like a call back [facility]05-08-2025 Telephone encounter Note* Telephone Encounter - Angella Mccarthy - 08/23/2024 10:37 AM EDT Name: Jaz Sanders called today. : 1995 (home) [phone] (cell) Reason for call: pt called today informing the nurse she has been experiencing pain of level 4 from1-10. Pt has been experiencing pain for 2 day. 5 weeks today. The patients preferred pharmacy has been captured for this encounter? Angella Easton [facility]05-08-2025 Telephone encounter Note* Telephone Encounter - Arminda Ward RN - 08/23/2024 8:53 AM EDT See 08/20 Distance health visit Arminda Ward RN August 23, 2024 8:53 AM [facility]05-08-2025 Miscellaneous Notes* Telephone Encounter - Arminda Ward RN - 08/23/2024 8:53 AM EDT See 08/20 Distance health visit Arminda Ward RN August 23, 2024 8:53 AM documented in this encounterTrinity [facility] System05-07-2025 History of Present illness Narrative* Darleen Sinclair MD - 08/22/2024 10:00 AM EDT Jaz Sanders is a 29 y.o. female Darleen Sinclair MD presents with chief complaint of Thyroid Problem and Follow-up (1.5 YRS ) HPI: History of Present Illness The patient is a 29-year-old female who presents for a follow-up visit. She was last seen in 03/2023. 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 There have been [...] NP, for abnormal thyroid antibodies. TPO 180. Ultrasounddone. She has 6.8 x 2.6 x 2.5 cm and right lobe 6.5 x 2.4 x 2.6; left lobe, no nodules. She used janny on high-dose thyroid medication before, had gastric [...] tablet (50 mcg) by mouth in the morning.Take before meals. Vitamin D deficiency - Vitamin [...] good overall with no significant GI symptoms post- gastric bypass. Follow up in about 1 year (around 08/22/2025). documented in this encounterJefferson Memorial [id number] NoteHNO ID: [id number] Author: MELODIE HERNANDEZ APRN.DEPLOYMENT SPECIALIST Service: ? Author Type: Nurse Practitioner Type: [...] visit. Either the patient or their legal telemarketing sales representative has been informed of the [...] assisted reproductive technology in first trimester ([facility]) O09.811 OBSTETRIC ULTRASOUND I Plan: further labwork needed: no scan scheduled: 09/03 medications to discontinue: patient to discuss status with her providers Schedule with OB: 09/13 Melodie Hernandez APRN.DEPLOYMENT SPECIALIST August 20, 2024 8:33 AM Please schedule the patient for the following- Location: [place] Provider: nurse Visit type: Reason for visit/appointment notes: scan Date: 09/03 Time (requested): 1040 If slot is full, please schedule the closest open slot. Call to patient needed: no I spent a total of 30 minutes on the date of the service which included preparing to see the patient, [id number] patient care, completing clinical documentation, obtaining and/or [...] be grammatical and typographical errors missed in proofreading.[facility]05-05-2025 History of Present illness Narrative* Melodie Hernandez APRN.DEPLOYMENT SPECIALIST - 08/20/2024 8:33 AM EDT Images from the original note were [...] licensure. The patient's identity and physical location wereverified at the time of this visit. Either the patient or their legal telemarketing sales representative has been informed of the risks and benefits of -- and alternatives to -- treatment through a remote evaluation andconsents to proceed with the evaluation remotely. Reason [...] assisted reproductive technology in first trimester ([facility]) O09.811 OBSTETRIC ULTRASOUND WHI Plan: further labwork needed: no scan scheduled: 09/03 medications to discontinue: patient to discuss status with her providers Schedule with OB: 09/13 Melodie Hernandez APRN.CNP August 20, 2024 8:33 AM [...] which included preparing to see the patient, [id number] patient care, completing clinical documentation, obtaining and/or reviewing separately obtained history, counseling and educating the patient/family/caregiver, ordering medications, ezequiel ts, or procedures, independently interpreting results (not separately [...] errors missed in proofreading. documented in this encounterTr[facility]05-01-2025 Telephone encounter Note * Telephone Encounter - Daniel Hanna APRN.CNP - 08/16/2024 5:15 PM EDT Called patient back to phone number listed in GIDEEN-no answer. Lm for patient to look out for Mychart message. Daniel Hanna APRN.CNP August 16, 2024 5:15 PM [facility]05-01-2025 Miscellaneous Notes* Telephone Encounter - Daniel Hanna APRN.CNP - 08/16/2024 5:15 PM EDT Called patient back to phone number listed in GIDEEN-no answer. Lm for patient to look out for Mychart message. Daniel Hanna APRN.CNP August 16, 2024 5:15 PM * Telephone Encounter - Angella Mccarthy - 08/16/2024 12:29 PM EDT Name: Jaz Sanders called today. : 1995 (home) [phone] (cell) Reason for call: pt called that she got positive test, she has been having having cramping since last night , it happens every hours for couple minutes. The patients preferred pharmacy has been captured for this encounter? yes Angella Morillo Early Morning documented in this encounterTr[facility] System05-01-2025 Telephone encounter Note * Telephone Encounter - Angella Mccarthy - 08/16/2024 12:29 PM EDT Name: Jaz Sanders called today. : 1995 (home) [phone] (cell) Reason for call: pt called that she got positive test, she has been having having cramping since last night , it happens every hours for couple minutes. The patients preferred pharmacy has been captured for this encounter? yes Angella Morillo Early Morning [facility]04-30-2025 Telephone encounter Note* Telephone Encounter - Manisha Ding - 08/15/2024 2:10 PM EDT Pt is preg and wants to know if she can take benadryl due to her having hives [facility]04-30-2025 Miscellaneous Notes* Telephone Encounter - Manisha Ding - 08/15/2024 2:10 PM EDT Pt is preg and wants to know if she can take benadryl due to her having hives documented in this encounterTrinity Health System04-15-2025 NoteHNO ID: [id number] Author: DOMINGUEZ BARRY, ? Service: ? Author Type: International First Officer Type: Progress Notes Filed: 09/05/2024 22:45 Note Text: IUI Cryobio Donor # [id number] Pre: frozen washed specimen Post: 82 M/ml, 67% Insem # 27.5 millionWilson Memorial Hospital04-15-2025 NoteHNO ID: [id number] Author: DOMINGUEZ BARRY, ? Service: ? Author Type: International First Officer Type: Progress Notes Filed: 07/31/2024 15:26 Note Text: Thaw for IUI. [facility]Louis [facility] History of Present illness Narrative* Dominguez Barry - 07/31/2024 3:25 PM EDT Thaw for IUI. Dominguez Barry documented in this encounterTrinity Health System04-15-2025 NoteHNO ID: [id number] Author: DOMINGUEZ BARRY, ? Service: ? Author Type: International First Officer Type: Progress Notes Filed: 09/05/2024 22:45 Note Text: IUI specimen released to provider Dominguez Barry July 31, 2024 3:24 [facility]04-15-2025 NoteHNO ID: [id number] Author: MUSTAPHA TELLO MA Service: ? Author Type: Food Court Team Member Type: Progress Notes Filed: 07/31/2024 15:12 Note Text: Patient verified by full name and date of . Jaz Sanders is here today for an IUI. LMP: 07/19/2024 Natural cycle IUI Timed With: Ovulation Predictor Kit , Date: 07/30/2024 Inside Sales Specialist offered: Patient declines Mustapha Tello MA July 31, 2024 3:12 [facility]04-14-2025 Telephone encounter Note* Telephone Encounter - Melodie Hernandez APRN.CNP - 07/30/2024 5:58 PM EDT patient's OPK today was dark but not positive Plan: test again tomorrow. if darker, schedule IUI on Tuesday if neurodiagnostic tech than today, schedule IUI the same day Melodie Hernandez APRN.CNP July 30, 2024 6:00 PM [facility]04-14-2025 Miscellaneous Notes* Telephone Encounter - Melodie Hernandez APRN.CNP - 07/30/2024 5:58 PM EDT patient's OPK today was dark but not positive Plan: test again tomorrow. if darker, schedule IUI on Tuesday if neurodiagnostic tech than today, schedule IUI the same day Melodie Hernandez APRN.CNP July 30, 2024 6:00 PM * Telephone Encounter - Manisha Ding - 07/30/2024 3:15 PM EDT N- ivf Pt has questions regarding IUI documented in this encounterTrinity Health System04-14-2025 Telephone encounter Note * Telephone Encounter - Manisha Ding - 07/30/2024 3:15 PM EDT N- ivf Pt has questions regarding IUI [facility]03-23-2025 NoteHNO ID: [id number] Author: NICHELLE GONZALEZ, ? Service: ? Author Type: International First Officer Type: Progress Notes Filed: 07/19/2024 07:50 Note Text: IUI Cryobio #[id number] Washed frozen specimen Post: 31 m/ml, 77% Insem#: 10.8 millionWilson Memorial Hospital03-23-2025 History of Present illness Narrative* Nichelle Gonzalez - 07/08/2024 8:07 AM EDT IUI Cryobio #[id number] Washed frozen specimen Post: 31 m/ml, 77% Insem#: 10.8 million * Nichelle Gonzalez - 07/07/2024 10:10 AM EDT IUI specimen released to provider Nichelle Gonzalez July 07, 2024 10:10 AM documented in this encounterTrinity Health System03-22-2025 NoteHNO ID: [id number] Author: NICHELLE GONZALEZ, ? Service: ? Author Type: International First Officer Type: Progress Notes Filed: 07/19/2024 07:50 Note Text: IUI specimen released to provider Nichelle Gonzalez July 07, 2024 10:10 [facility]03-22-2025 NoteHNO ID: [id number] Author: MIKEY TORRES MD Service: ? Author [...] Cycle Day: 14 Last menstrual period: 06/24/2024 Mason Protocol: UNIVERSAL PROTOCOL / SAFETY CHECKLIST Procedure [...] the primary surgeon/proceduralist with assistance. Stacy Banuelos [facility]03-22-2025 Procedure note* Mikey Torres MD - 07/07/2024 10:04 AM EDT WHI JAMEL IUI PROCEDURE NOTE Date: 07/07/2024 Primary Proceduralist: Nakia Duran MD Consents and Labels Consent Signed: Informed Consent obtained and on the chart Labels Verified With Patient: Yes Indications: Jaz Sanders, is a 29 year old No obstetric history on file. female here today for intrauterine insemination. IUI # 2. Cycle Day: 14 Last menstrual period: 06/24/2024 Mason Protocol: UNIVERSAL PROTOCOL / SAFETY CHECKLIST Procedure [...] primary surgeon/proceduralist with assistance. Stacy Banuelos MD [facility]03-22-2025 Procedure note* Mikey Torres MD - 07/07/2024 10:04 AM EDT WHI JAMEL IUI PROCEDURE NOTE Date: 07/07/2024 Primary Proceduralist: Nakia Duran MD Consents and Labels Consent Signed: Informed Consent obtained and on the chart Labels Verified With Patient: Yes Indications: Jaz Sanders, is a 29 year old No obstetric history on file. female here today for intrauterine insemination. IUI # 2. Cycle Day: 14 Last menstrual period: 06/24/2024 Mason Protocol: UNIVERSAL PROTOCOL / SAFETY CHECKLIST Procedure [...] assistance. Stacy Banuelos MD documented in this encounterTrinity Health System03-22-2025 NoteHNO ID: [id number] Author: NICHELLE GONZALEZ, ? Service: ? Author Type: International First Officer Type: Progress Notes Filed: 07/07/2024 09:41 Note Text: Thaw for IUI [facility]helle GonzalezWilson [facility] Hospital03-22-2025 History of Present illness Narrative* Nichelle Gonzalez - 07/07/2024 9:41 AM EDT Thaw for IUI Nichelle Gonzalez documented in this encounterTrinity Health System03-21-2025 Telephone encounter Note * Telephone Encounter - Becki Isaacs PA-C - 07/06/2024 3:24 PM EDT Called the pt back. Pt had an US done 07/04/24--Possible small 4 mm intracervical canal polyp. No other abnormal findings. Advised to move on with IUI tomorrow. FYI: Dr. Guy and TY Vega. Please let me know if any different instructions. Becki Isaacs PA-C July 06, 2024 3:26 PM [facility]03-21-2025 Miscellaneous Notes* Telephone Encounter - Becki Isaacs PA-C - 07/06/2024 3:24 PM EDT Called the pt back. Pt had an US done 07/04/24--Possible small 4 mm intracervical canal polyp. No other abnormal findings. Advised to move on with IUI tomorrow. FYI: Dr. Guy and TY Vega. Please let me know if any different instructions. Becki Isaacs PA-C July 06, 2024 3:26 PM * Telephone Encounter - Sivan Roberto - 07/06/2024 2:39 PM EDT Patient states she is calling back unsure about if she is okay to proceed with iui tomorrow. Pleasecall patient. documented in this encounterTrinity Health System03-21-2025 Telephone encounter Note * Telephone Encounter - Sivan Roberto - 07/06/2024 2:39 PM EDT Patient states she is calling back unsure about if she is okay to proceed with iui tomorrow. Pleasecall patient. [facility]03-21-2025 Telephone encounter Note* Telephone Encounter - Arminda Ward RN - 07/06/2024 11:17 AM EDT See other TE for 07/04 Arminda Ward RN July 06, 2024 11:17 AM [facility]03-21-2025 Miscellaneous Notes* Telephone Encounter - Arminda Ward RN - 07/06/2024 11:17 AM EDT See other TE for 07/04 Arminda Ward RN July 06, 2024 11:17 AM * Telephone Encounter - Sivan Roberto - 07/05/2024 3:02 PM EDT On day 11 now, inquiring about if okay to proceed with iui with cervical polyp. Patient believes itwill be tomorrow or Tuesday for iui- inquiring if polyp needs to be removed first. documented in this encounterTrinity Health System03-20-2025 Telephone encounter Note * Telephone Encounter - Sivan Roberto - 07/05/2024 3:02 PM EDT On day 11 now, inquiring about if okay to proceed with iui with cervical polyp. Patient believes itwill be tomorrow or Tuesday for iui- inquiring if polyp needs to be removed first. [facility]03-19-2025 Telephone encounter Note* Telephone Encounter - Melodie Hernandez APRN.CNP - 07/04/2024 7:27 PM EDT Spoke with Jaz regarding multiple questions. #1 [...] positive. Patient is worried about ovulation. She brock cycle day 10 today, largest follicle on ultrasound was 15.8mm. Reassured patient that she is growing a follicle and I'm not surprised OPK is not yet positive. She is predicted to ovulate on Tuesday or Tuesday. Melodie Hernandez APRN.CNP July 04, 2024 7:30 PM [facility]03-19-2025 Miscellaneous Notes* Telephone Encounter - Melodie Hernandez APRN.CNP - 07/04/2024 7:27 PM EDT Spoke with Jaz regarding multiple questions. #1 - ultrasound results LMP 05/28, natural cycle, LH surge 06/08 -IUI 06/09 - cervix bled during IUI, Dr. Guy recommended ultrasound before getting another IUI. Ultrasound done today. Cervical polyp seen. Dr. Guy - please advise if this needs to be removed before doing another IUI. LMP 3, OPK getting a faint line but not yet positive. Patient is worried about ovulation. She brock cycle day 10 today, largest follicle on ultrasound was 15.8mm. Reassured patient that she is growing a follicle and I'm not surprised OPK is not yet positive. She is predicted to ovulate on Tuesday or Tuesday. Melodie Hernandez APRN.CNP July 04, 2024 7:30 PM documented in this encounterTrinity Health System03-19-2025 NoteHNO ID: [id number] Author: IGNACIO GUY MD Service: ? Author Type: Physician Type: Progress Notes Filed: 07/04/2024 16:27 Note Text: [facility]CLou[facility]03-19-2025 History of Present illness Narrative* Ignacio Guy MD - 07/04/2024 4:27 PM EDT 1 documented in this encounterCleveland [id number] NoteHNO ID: [id number] Author: IGNACIO GUY MD Service: ? Author [...] Cycle Day: 13 Last menstrual period: 05/28/2024 Mason Protocol: UNIVERSAL PROTOCOL / SAFETY CHECKLIST Procedure [...] was discussed with the patient or authorized telemarketing sales representative. The patient or authorized telemarketing sales representative has agreed to proceed with the sensitive examination. 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 Vidhi Sheldon MD IUI IUI Date: [...] stopped. Will get pelivc scan here at [facility] if not with this IUI prior pt proceeding with another attmept at IUI. Ignacio Guy MD June 09, 2024 12:30 PM SIGNATURE: Vidhi Sheldon MD PATIENT NAME: Jaz Sanders DATE: June 09, 2024 TIME: 12:01 [facility]02-22-2025 Procedure note* Vidhi Sheldon MD - 06/09/2024 12:01 PM EST WHI JAMEL IUI PROCEDURE NOTE Date: 06/09/2024 Primary Proceduralist: Vidhi Sheldon MD Consents and Labels Consent Signed: Informed Consent obtained and on the chart Labels Verified With Patient: Yes Indications: Jaz Sanders, is a 29 year old No obstetric history on file. female here today for intrauterine insemination. IUI # 1. Cycle Day: 13 Last menstrual period: 05/28/2024 Mason Protocol: UNIVERSAL PROTOCOL / SAFETY CHECKLIST Procedure [...] was discussed with the patient or authorized telemarketing sales representative. The patient or authorized telemarketing sales representative has agreed to proceed with the sensitive examination. 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 Vidhi Sheldon MD IUI IUI Date: [...] stopped. Will get pelivc scan here at [facility] if not with this IUI prior pt proceeding with another attmept at IUI. Ignacio Guy MD June 09, 2024 12:30 PM SIGNATURE: Vidhi Sheldon MD PATIENT NAME: Jaz Sanders DATE: June 09, 2024 TIME: 12:01 PM [facility] Work Phone: 1(377) 225-999802-22-2025 Procedure note* Vidhi Sheldon MD - 06/09/2024 12:01 PM EST I JAMEL IUI PROCEDURE NOTE Date: 06/09/2024 Primary Proceduralist: Vidhi Sheldon MD Consents and Labels Consent Signed: Informed Consent obtained and on the chart Labels Verified With Patient: Yes Indications: Jaz Sanders, is a 29 year old No obstetric history on file. female here today for intrauterine insemination. IUI # 1. Cycle Day: 13 Last menstrual period: 05/28/2024 Mason Protocol: UNIVERSAL PROTOCOL / SAFETY CHECKLIST Procedure [...] was discussed with the patient or authorized telemarketing sales representative. The patient or authorized telemarketing sales representative has agreed to proceed with the sensitive examination. 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 Vidhi Sheldon MD IUI IUI Date: [...] stopped. Will get pelivc scan here at [facility] if not with this IUI prior pt proceeding with another attmept at IUI. Ignacio Guy MD June 09, 2024 12:30 PM SIGNATURE: Vidhi Sheldon MD PATIENT NAME: Jaz Sanders DATE: June 09, 2024 TIME: 12:01 PM documented in this encounterTrinity Health System02-22-2025 NoteHNO ID: [id number] Author: NICHELLE GONZALEZ, ? Service: ? Author Type: International First Officer Type: Progress Notes Filed: 06/09/2024 12:30 Note Text: IUI Cryobio #: [id number] Washed frozen sample Post: 42 m/ml, 74% Insem#: 15.5 millionWilson [facility] Hospital02-22-2025 History of Present illness Narrative* Nichelle Gonzalez - 06/09/2024 11:52 AM EST IUI Cryobio #: [id number] Washed frozen sample Post: 42 m/ml, 74% Insem#: 15.5 million * Nichelle Gonzalez - 06/09/2024 11:24 AM EST IUI specimen released to provider Nichelle Gonzalez June 09, 2024 11:24 AM documented in this encounterTrinity Health System02-22-2025 NoteHNO ID: [id number] Author: NICHELLE GONZALEZ, ? Service: ? Author Type: International First Officer Type: Progress Notes Filed: 06/09/2024 11:48 Note Text: Thaw for IUI [facility]helle E [facility]lyWilson [facility] Hospital02-22-2025 History of Present illness Narrative* Nichelle Gonzalez - 06/09/2024 11:47 AM EST Thaw for IUI Nichelle Colt Pauly documented in this encounterTrinity Health System02-22-2025 NoteHNO ID: [id number] Author: NICHELLE GONZALEZ, ? Service: ? Author Type: International First Officer Type: Progress Notes Filed: 06/09/2024 12:30 Note Text: IUI specimen released to provider Nichelle Gonzalez June 09, 2024 11:24 [facility]01-22-2025 Instructions* Patient Instructions* Melodie Hernandez, MELY.DEPLOYMENT SPECIALIST - 05/09/2024 9:08 AM EST Images from the original note were not included. REPRODUCTIVE ENDOCRINOLOGY AND INFERTILITY DONOR SPERM HANDOUT Donor Sperm Checklist: Complete Next Steps: Progesterone blood test 6-8 days after your LH surge - please let me know the test result when you get it. IUI Procedure consent form - sent to you via [employer] today. Please sign when you can. Order sperm Financial Clearance - I sent your chart to the front maker lockstitch today. Treatment plan: Natural cycle/IUI x 3 cycles. Please schedule a follow up visit with Dr. Brooks velasco are not after 3 cycles. Sperm Ordering Instructions We need 1 vial per cycle. You will likely need 3-6 vials to establish a . You are welcome to buy more than one and store with the [facility]. Mailing address: Attention: Nichelle Gonzalez [address] [place] [address], [address] [place] [address] Storage at the [facility] is available. Fees are yearly and only start once you are not actively trying. Please ask the financial team ([phone]) for current cost information. Donor Insemination Scheduling Instructions Please call during the first business day of your menstrual cycle to let the front maker lockstitch know you will be testing and doing [...] please call the office to discuss. Location [facility] [address] [place] [address], [address] [place] [address] Available every day, including weekends and holidays (except [place] and New Years.) Weekday IUI scheduling The day you get your LH surge, please call [phone] between 8:00am - 12:00pm to schedule your insemination for the next day. If you call after 12pm, we may not be able to schedule your appointment. IUI s are done by appointment only. You will make 2 appointments -an arrival time and a procedure time. [place]: [id number] [facility], [address] [place] [address] Available every day, including weekends and holidays (except [place] and New Years.) Available for IUI using fresh and frozen samples. Check in location for sperm wash and IUI: [address] [facility]. The sperm wash takes 60-90 minutes. Weekend/Holiday [...] to do another IUI: Call the front maker lockstitch to make sure you are financially cleared. Ask to speak to an SKYLAR to confirm your treatment plan. Important phone number: [phone] documented in this encounterTrinity Health System01-22-2025 NoteHNO ID: [id number] Author: MELODIE HERNANDEZ APRN.CNP Service: ? Author Type: Nurse [...] visit. Either the patient or their legal telemarketing sales representative has been informed of the [...] negative donor is a carrier of: CFTR, [id number] Vial types available: IUI and ART Considerations when using this donor: IUI vial recommended Green light Plan: Donor Sperm episode/checklist updated Pending checklist items: Progesterone blood test, IUI consent, order sperm Confirmed best vial type to order: IUI Melodie Hernandez APRN.CNP May 09, 2024 8:12 AM I spent a total of 60 minutes on the date of the service which included preparing to see the patient, guig-vz-fptn patient care, completing clinical documentation, obtaining and/or [...] medical team. Standard se (more content not included)...[facility] 05-09-2024 History of Present illness Narrative* Melodie Hernandez APRN.DEPLOYMENT SPECIALIST - 05/09/2024 8:12 AM EST Images from the original note [...] licensure. The patient's identity and physical location wereverified at the time of this visit. Either the patient or their legal telemarketing sales representative has been informed of the risks and benefits of -- and alternatives to -- treatment through a remote evaluation andconsents to proceed with the evaluation remotely. Reason [...] make sure you were tested for those conditionsand do not carry them. No double whammies. 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, [id number] Vial types available: IUI and ART Considerations when using this donor: IUI vial recommended Green light Plan: Donor Sperm episode/checklist updated Pending checklist items: Progesterone blood test, IUI consent, order sperm Confirmed best vial type to order: IUI Melodie Hernandez APRN.CNP May 09, 2024 8:12 AM I spent a total of 60 minutes on the date of the service which included preparing to see the patient, vxkc-ou-skhg patient care, completing clinical documentation, obtaining and/or reviewing separately obtained history, counseling and educating the patient/family/caregiver, ordering medications, ezequiel ts, or procedures, independently interpreting results (not separately [...] errors missed in proofreading. documented in this encounterTrinity Health System01-15-2025 History of Present illness Narrative* Nola Enriquez, PhD - 05/02/2024 2:00 PM EST Psychosocial Consultation for Third Constitution Party Reproduction Virtual visit with audio and visual equipment POS 10 No SI, Falls, Tobacco use On May 02, 2024, I met virtually with Jaz and Sravan Sanders. They were referred by Melodie Hernandez at [facility] for their required psychosocial consultation regarding third democrat reproduction. Relevant History Jaz, 29, and Demetrius, 26, have been together for 8.5 years and for 6.5 years. 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 Demetrius also works at that [employer]. The couple has been trying to [...] Eugenia's have already chosen a donor from [place] in [place]. They chose this donor because heis CMV-, met their genetic screen (he does not have a history of bipolar disorder) and is phenotypically very similar to Demetrius. He is also listed as open ID. With regard to disclosure, the Maria Eugenia's are prepared and interested in disclosure to [...] third democrat reproductive option. documented in this [facility] Work Phone: 1(873) 885-140411-24-2024 NoteHNO ID: [id number] Author: MELODIE HERNANDEZ APRN.DEPLOYMENT SPECIALIST Service: ? Author Type: Nurse Practitioner Type: [...] visit. Either the patient or their legal telemarketing sales representative has been informed of the [...] Practice cycle Plan: Episode created.Reviewed checklist - Airpersonst message sent Practice cycle: recommended OPKs to test for ovulation and timing of IUIs, patient to call with +OPK, confirm ovulation with progesterone level Follow up once checklist is complete to discuss test results and next steps. Melodie Hernandez APRN.CNP March 11, 2024 10:42 PM I spent a total of 55 minutes on the date of the service which included preparing to see the patient, xuos-mv-vanb patient care, completing clinical documentation, obtaining and/or [...] be grammatical and typographical errors missed in proofreading.[facility]11-24-2024 History of Present illness Narrative* Melodie Hernandez APRN.DEPLOYMENT SPECIALIST - 03/11/2024 10:42 PM EST Images from the original note were [...] licensure. The patient's identity and physical location wereverified at the time of this visit. Either the patient or their legal telemarketing sales representative has been informed of the risks and benefits of -- and alternatives to -- treatment through a remote evaluation andconsents to proceed with the evaluation remotely. Reason [...] Practice cycle Plan: Episode created.Reviewed checklist - Sonicbidshart message sent Practice cycle: recommended OPKs to test for ovulation and timing of IUIs, patient to call with +OPK, confirm ovulation with progesterone level Follow up once checklist is complete to discuss test results and next steps. Melodie Hernandez APRN.JARROD March 11, 2024 10:42 PM I spent a total of 55 minutes on the date of the service which included preparing to see the patient, dkfd-rm-plne patient care, completing clinical documentation, obtaining and/or reviewing separately obtained history, counseling and educating the patient/family/caregiver, ordering medications, ezequiel ts, or procedures, independently interpreting results (not separately [...] errors missed in proofreading. documented in this encounterTrinity Health System11-22-2024 Instructions* Patient Instructions* Melodie Hernandez APRN.CNP - 03/09/2024 10:08 AM EST [...] please call the office. ~Silvia Hernandez APRN.CNP [phone] Donor Sperm Checklist Donor Sperm Labs Mandatory [...] Sravan must be present Amanda Gillespie MD ([place]) - [phone] Rani Sims (Filomena Hernandez) - [phone] - virtual visit Nola Enriquez, - virtual visit Margie Leonard, - [...] to date). Please get scheduled with your softball coach or pcp if needed. Practice with Ovulation Predictor Kit (OPK) First day of full flow is cycle day #1. Start using on ovulation predictor kit on cycle day 10. Use your OPK once a day, in the morning with your second urine of the day. Send in a ClaraStream message when you get a positive OPK. ( Practice cycle, progesterone level needed. ) A progesterone order will be placed. Please go to the lab 6-8 days after the positive on your OPK. If you do not get a positive on your OPK by cycle day 21, please call the office. We will order theprogesterone level at that time to confirm your ovulation status. Once your checklist is complete, please call [phone] to get scheduled for a donor sperm follow up appointment. Sperm Bank Website [place] [facility] [email or web address]/ [facility] https://[email or web address]/ [employer] https://www.cryosBaobab Planet.Dysonics/ [place] [facility] https://Xmybox.Dysonics/ [place] [facility] https://www.Evolent Health.Dysonics/ [facility] [place] https://www.thespermbankofca.org/ [employer] Sperm Bank https://www.TheFamily.Dysonics/ [facility] https://www.Connected.Dysonics/ If you would like to start browsing [...] is needed. 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 rates discussed and use of meds vs natural cycle was discussed. Given her periods are regular I would recommend timed IUI for now and hol doff on the HSG for three cycles. They will meet with SMOKING TOBACCO PACKER HAND to review the IUI checklist and sign consents. I spent a total of 45 minutes on the date of the service which included preparing to see the patient, yppo-dj-ercm patient care, completing clinical documentation, counseling and educating the patient/family/caregiver, and ordering medications, tests, or procedures. 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 rates discussed and use of meds vs natural cycle was discussed. Given her periods are regular I would recommend timed IUI for now and hol doff on the HSG for three cycles. They will meet with SMOKING TOBACCO PACKER HAND to review the IUI checklist and sign consents. I spent a total of 45 minutes on the date of the service which included preparing to see the patient, vgdq-lz-tulc patient care, completing clinical documentation, counseling and educating the patient/family/caregiver, and ordering medications, tests, or procedures. Ignacio Guy MD documented in this encounterTrinity Health System11-12-2024 Instructions* Patient Instructions* Ignacio Guy MD - 02/28/2024 2:47 PM EST Dear Jaz Sanders Using [facility] requires some set up (outlined below). Requirements to use donor sperm at the [facility]: Teaching with JAMEL SKYLAR - please call [phone] to schedule a donor sperm teach with my nurse practitioner, Silvia Hernandez. If you have a partner/spouse, they need to be present during this appointment. She will talk you through the process, answer all of your questions and place orders for required testing at that time. Lab work You and your partner/spouse will need to undergo testing for Blood Type, CMV status, STD screening.The full list and codes are below. These [...] to help with the donor selection process. [employer] Carrier Screen is the test ordered. Processing time takes 2-3 weeks. If your insurance doesn't cover it, the self-pay de oliveira is ~$250. Counselor You and your partner/spouse (if applicable) must see a counselor for a donor sperm assessment. Amanda Gillespie MD ([place]) - [phone] Rani Sims ([facility]) - [phone] Doris Lama ([place]) - [phone] Consent form - must be signed by [...] Required Tests Test: CPT Code: Blood type 61482 HIV 60163 CMV IgG 95318 CMV IgM 70734 Syphilis 01886 Hepatitis B Surface Ag 78859 Hepatitis B Core Ab, IgG and IgM 55368 Hepatitis C Ab 94347 Rubella 61002 Varicella 97125 Chlamydia 71916 Gonorrhea 57164 For the above tests, reference the diagnosis code of Z31.49. S[employer] Carrier Screen - [employer] will check coverage for you. For this [...] your test results into consideration. Sperm Bank [employer] [place] [facility] ([place]) [facility] [employer] ([facility] [place]) [place] [facility] *Do not order any sperm until your checklist is complete. We will review ordering instructions at your follow up visit. Next Steps: Call insurance to verify coverage for donor sperm panel. Schedule donor sperm teach with my nurse practitioner, Silvia Hernandez. Ignacio Guy MD [phone] documented in this encounterTrinity Health System11-12-2024 NoteHNO ID: [id number] Author: IGNACIO GUY MD Service: ? Author [...] OB History Obstetric History No data available DIRECTOR PROPERTY HISTORY: Patient's last menstrual period was 02/18/2024. 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 They will meet with SMOKING TOBACCO PACKER HAND to review the IUI checklist and sign consents. I spent a total of 45 minutes on the date of the service which included preparing to see the patient, ltgw-cz-yvtv patient care, completing clinical documentation, counseling and educating the patient/family/caregiver, and ordering medications, tests, or procedures. Ignacio Guy [facility]11-12-2024 History of Present illness Narrative* Ignacio Guy MD - 02/28/2024 2:17 PM EST Images from the original note were [...] OB History Obstetric History No data available DIRECTOR PROPERTY HISTORY: Patient's last menstrual period was 02/18/2024. 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 They will meet with SMOKING TOBACCO PACKER HAND to review the IUI checklist and sign consents. I spent a total of 45 minutes on the date of the service which included preparing to see the patient, wzsi-dk-qofd patient care, completing clinical documentation, counseling and educating the patient/family/caregiver, and ordering medications, tests, or procedures. Ignacio Guy MD documented in this encounterTrinity Health System11-11-2024 Evaluation note* Diagnosis Onset Date Resolution Status Admit Date Degenerative superior labral anterior-to -posterior (SLAP) tear of right matthias acuteNov2023 2:25pmLaxity of ligamentacuteNov2023 2:25pm Multidirectional instability of glenohumeral jointacuteNov2023 2:25pmOther instability, right shoulderacuteNov2023 2:25pmRight carpal tunnel syndromeacuteNov2023 2:25pmStatus post arthroscopy of right shoulderacuteNov2023 2:25pmStatus post surgerynoneactive February 27, 2024 2:25pmDegenerative superior labral rkykaewb-mq-cncmbwrct (SLAP) tear of right shoacuteApril 23, 2024 2:29pmLaxity of ligamentacute April 23, 2024 2:29pmMultidirectional instability of glenohumeral jointacute April 23, 2024 2:29pmOther instability, right shoulderacuteJanuary 2024 2:29pmRight carpal tunnel syndromeacuteJanuary 2024 2:29pmStatus post arthroscopy of right shoulderacuteJanuary 2024 2:29pm [facility] Work Phone: 1(840) 645-555311-11-2024 Evaluation note* Diagnosis Onset Date Resolution Status Admit Date Degenerative superior labral anterior-to -posterior (SLAP) tear of right matthias acuteNovember 2023 2:25pmLaxity of ligamentacuteNovember 2023 2:25pm Multidirectional instability of glenohumeral jointacuteNovember 2023 2:25pmOther instability, right shoulderacuteNovember 2023 2:25pmRight carpal tunnel syndromeacuteNovember 2023 2:25pmStatus post arthroscopy of right shoulderacuteNovember 2023 2:25pmStatus post surgerynoneactive November 2023 2:25pmDegenerative superior labral uhapuzag-iu-wztmqioho (SLAP) tear of right shoacuteJanuary 2024 2:29pmLaxity of ligamentacute April 23, 2024 2:29pmMultidirectional instability of glenohumeral jointacute April 23, 2024 2:29pmOther instability, right shoulderacuteJanuary 2024 2:29pmRight carpal tunnel syndromeacuteJanuary 2024 2:29pmStatus post arthroscopy of right shoulderacuteJanuary 2024 2:29pmAcute urticariaacute April 26, 2024 8:29amHypothyroidacuteJanuary 2024 8:29amOther chronic painacuteJanuary 2024 8:29am [facility] Work Phone: 1(403) 581-226511-04-2024 History of Present illness Narrative* Marsha Asif [...] nursing note reviewed. Exam conducted with a piano machine operator present. Vitals: Estimated body mass index [...] behalf of: TRENT Engle documented in this encounterJefferson Memorial HospitalUqhfzyhsjo36-20-1454 Note [id number]#1.00[facility]09-03-2024 Evaluation note* Diagnosis Onset Date Resolution Status Admit Date Degenerative superior labral anterior-to -posterior (SLAP) tear of right matthias acuteSeptember 2023 10:11amLaxity of ligamentacuteSeptember 2023 10:11amMultidirectional instability of glenohumeral jointacuteSeptember 2023 10:11amOther instability, right shoulderacuteSeptember 2023 10:11am Right carpal tunnel syndromeacuteSeptember 2023 10:11amStatus post arthroscopy of right shoulderacuteSeptember 2023 10:11amStatus post surgery noneactiveSeptember 2023 10:11amDegenerative superior labral vvkjnwpn-sj-bswclccrm (SLAP) tear of right shoacuteOctober 2023 11:58am Laxity of ligamentacuteOctober 2023 11:58amMultidirectional instability of glenohumeral jointacuteOctober 2023 11:58amOther instability, right shoulderacuteOctober 2023 11:58amRight carpal tunnel syndromeacuteOctober 2023 11:58amStatus post arthroscopy of right shoulderacuteOctober 2023 11:58amStatus post surgerynoneactiveOctober 2023 11:58amDegenerative superior labral wakuyvvc-co-uhrutxqow (SLAP) tear of right shoacuteNovember 2023 2:25pmLaxity of ligamentacuteNovember 2023 2:25pm Multidirectional instability of glenohumeral jointacuteNovember 2023 2:25pmOther instability, right shoulderacuteNovember 2023 2:25pmRight carpal tunnel syndromeacuteNovember 2023 2:25pmStatus post arthroscopy of right shoulderacuteNovember 2023 2:25pmStatus post surgerynoneactive November 2023 2:25pm [facility] Work Phone: 1(384) 300-894907-17-2024 NoteEducation Materials Orthopedics Musculoskeletal Pain Musculoskeletal pain [...] mouth or applied to the skin. Take kkyc-ezd-ojwzrlr and prescription medicines only as told by [...] provider. Document Revised: 08/07/2020 Document Reviewed: 07/16/2020 [email or web address] Patient Education ? 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 She can follow up as needed. Apr,Instability of right shoulder joint (ICD-10 - M25.311) Apr,Laxity, ligament (ICD-10 - M24.20) Apr,cute pain of right shoulder (ICD-10 - M25.511) [employer] Other 01-05-2024 Evaluation note* Encounter Date Diagnosis Assessment Notes Treatment Notes Treatment Clinical Notes Apr, Other iron deficiency anemia (IC D-10 - D50.8) [employer] Other 12-28-2023 Evaluation note* Encounter Date Diagnosis Assessment Notes Treatment Notes Treatment Clinical Notes Mar, Vitamin D deficiency (ICD-10 - E 55.9) [employer] Other 10-23-2023 Evaluation note* Encounter Date Diagnosis Assessment Notes Treatment Notes Treatment Clinical Notes Jan, Tear of right glenoi d labrum, initial encounter (ICD-10 - S43.431A) MRI reviewed with the patient and she has an inferior labrum tear and because of her continued ongoing pain consistent with labrum tear pain I would recommend seeing orthopedic surgery to discuss surgical intervention. Patient has not responded significantly to conservative treatments and given heryoung age and activity level surgical intervention would be an option for her that needs to be explored. Patient in agreement for this and referral was given. [employer] Other 09-21-2023 Evaluation note* Encounter Date Diagnosis Assessment Notes Treatment Notes Treatment Clinical Notes Dec, Other iron deficiency anemia (IC D-10 - D50.8) Dec,Low folic acid (ICD-10 - E53.8) [employer] Other 09-11-2023 Evaluation note* Encounter Date Diagnosis Assessment Notes Treatment Notes Treatment Clinical Notes Dec, Internal derangement of right sh oulder (ICD-10 - M24.811) Patient's right shoulder today on examination shows no concerns for rotator cuff tear but there is concern for labrum injury. She has not responded with long- term pain relief from an injection and she is not significantly improved from rehab exercises that she has been doing over the last couple ofmonths. Because of this an MR arthrogram will be obtained and she will be reevaluated after the arthrogram to review the imaging results with her. For now patient is to do activities that she can andcontinue to do the exercises for strength. [employer] Other 07-06-2023 Evaluation note* Encounter Date Diagnosis Assessment Notes Treatment Notes Treatment Clinical Notes Oct, Iron deficiency (ICD-10 - E61.1) [employer] Other 06-26-2023 Evaluation note* Encounter Date Diagnosis Assessment Notes Treatment Notes Treatment Clinical Notes Sep, Subacromial bursitis of right sh oulder joint (ICD-10 - M75.51) Explained to patient [...] the arm. I recommended doing a steroid injectioninto the subacromial bursa given the fact that she has done other conservative and prescription strength treatment options which have not provided her with long-lasting benefit. She is to wait 2 to 3 days and then start rehab exercises. I did offer physical therapy and she would like to think aboutthis but in the meantime rehab exercise handouts and therapy bands were given to her. She is to letme know if she would like formal physical therapy on top of this and she is to follow-up if not resolving as expected within the next 4 to 6 weeks. Sep,Strain of right trapezius muscle, initial encounter (ICD-10 - S46.811A)Instructed patient that she is overutilizing her trapezius which is contributing to her radicular symptoms and causing pain down the arm. 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 [employer] Other 05-10-2023 Evaluation note* Encounter Date Diagnosis Assessment Notes Treatment Notes Treatment Clinical Notes August, Acute pain of right shoulder (IC D-10 - M25.511) Discussed treatment options icluding steriod [...] follow-up if no improvement. She verbalizes understnading. [employer] Other 05-05-2023 Evaluation note* Encounter Date Diagnosis Assessment Notes Treatment Notes Treatment Clinical Notes August, Acquired hypothyroidism (ICD-10 - E03.9) Discussed with pt symptoms and lab resutls. Discussed treatment and evaluation. Referral placed to Dr. Sinclair. August,Hashimoto's disease (ICD-10 - E06.3) [employer] Other 02-24-2023 Progress note Author Farhad [facility] June 11, 2022 1:16pmNote Date/TimeFebruary 2022 1:07pm[place] [address] Hospitalist Progress Note Signed Patient: Jaz Sanders MR#: [id number] : 1995 Acct:[id number] Age/Sex: 27 / F Adm Date: 3 Loc: 4N Room: [address] [place] [address] Type: ADM IN Attending Dr: Farhad Gallego MD Copies to: ~ Date of Service: 06/11/2022 Subjective Subjective Narrative: Patient seen and examined. Patient is comfortable at rest. States that she feel significantly better since she came in. She started having menstrual cyclelast night. States that she had to use tampondue to heavy bleeding. Exam Physical Exam Vital [...] days. Patient has an appointment with her SENIOR JAVA ENGINEER next week. Educated her to go to ED if she continues to have heavy bleeding with symptoms, she verbalized understanding. We will send patient home on iron supplements and docusate as needed for constipation Patient is being discharged today. Documented By: Farhad Gallego MD 06/11/22 1306 Signed By: <Electronically signed by Farhad Gallego MD> 06/11/22 1316 [facility] Work Phone: 1(134) 106-510102-23-2023 History and physical note Author Farhad Gallego [facility] June 10, 2022 6:28pmNote Date/TimeFebruary 2022 5:39pmDay[place] [address] Hospitalist H&P Signed Patient: Jaz Sanders MR#: [id number] : 1995 Acct:[id number] Age/Sex: 27 / F Adm Date: 3 Loc: 4N Room: [address] [place] [address] Type: ADM INOo Attending Dr: Farhad Gallego MD Copies to: MD Amanda Correa, CONTRACT COORDINATOR, DEPLOYMENT SPECIALIST~ HPI DATE OF EXAMINATION: 06/10/22 CHIEF COMPLAINT: weakness, sob HISTORY OF PRESENT ILLNESS: Patient is a 27-year-old lady past medical history of gastric sleeve surgery, anxiety and depression, bipolar was sent to the emergency department by her PCP after she was found to have severe anemiaon routine labs. Patient noted that she had severe vaginal bleeding from April 02 to April 20and was given progesterone at the time to [...] % (Auto) 41.3 % (.) 06/10/22 14:51 Floyd % (Auto) 6.8 % (.) 06/10/22 14:51 Eos % (Auto) 5.0 % (.) 06/10/22 14:51 Baso % (Auto) 1.8 % (.) 06/10/22 14:51 Nucleat RBC Rel Count 0.1 /100 WBC (0-0.5) 06/10/22 14:51 Neut # (Auto) 2.4 x10E3/uL (1.8-7.7) 06/10/22 14:51 Lymph # (Auto) 2.2 x10E3/uL (1.00-4.8) 06/10/22 14:51 Floyd # (Auto) 0.4 x10E3/uL (0.0-0.8) 06/10/22 14:51 [...] pH 5.5 (5.0-9.0) 06/10/22 15:40 Ur Specific [place] 1.010 (1.001-1.030) 06/10/22 15:40 Urine Protein Negative [...] <Electronically signed by Farhad Gallego MD> 06/10/22 [address] [facility] Work Phone: [phone] 136-728101-04-2023 Evaluation note* Encounter Date Diagnosis Assessment Notes Treatment Notes Treatment Clinical Notes Apr, Painful urination (ICD-10 - R30. 9) The patient was seen today for ER/Urgent Care follow-up. All available records were reviewed and discussed with the patient. All new medications prescribed were reviewed. Any additional changes are noted above. Reviewed with pt that the urine diptstick, only showed large amount of blood no leucocylres, Will culture the urine and call with further recommendations. Also discussed ultrasound of the bladder andkidneys to evaluate for other causes of symptoms. pt agrees to plan of care. Apr,Other microscopic hematuria (ICD-10 - R31.29)Ordered Kidney and bladder ultrasound Apr,Menorrhagia with regular cycle (ICD-10 - N92.0)Pt has a follow-up Dr. Elder for bleeding. Keep appointment with Dr. Elder. [employer] Other 12-13-2022 Evaluation note* Encounter Date Diagnosis Assessment Notes Treatment Notes Treatment Clinical Notes Mar, Arthritis of shoulder (ICD-10 - M19.019) [employer] Other 12-06-2022 Evaluation note* Encounter Date Diagnosis Assessment Notes Treatment Notes Treatment Clinical Notes Mar, Other chronic pain (ICD-10 - G89 .29) Discussed symptoms will proceed with x-ray evaluation [...] verbalizes understanding and agrees with tx plan. Mar,ain in right shoulder (ICD-10 - M25.511) Mar,ttention deficit hyperactivity disorder (ADHD), predominantly inattentive type (ICD-10 - F90.0)[facility] due to she is currently treating her for anxiety and depression. And she has discussed this with Julieta and she had offered her treatement for this. [employer] Other 11-30-2022 Evaluation note* Encounter Date Diagnosis Assessment Notes Treatment Notes Treatment Clinical Notes Feb, Gastroesophageal ref lux disease without esophagitis (ICD-10 - K21.9) [employer] Other 10-24-2022 Evaluation note* Encounter Date Diagnosis Assessment Notes Treatment Notes Treatment Clinical Notes Jan, Strain of right shoulder, initia l encounter (ICD-10 - S46.911A) Discussed symptoms are most likely related to strain. RICE therapy.tylenol prn for pain. Lidoderm patches as directed. ice/warm compresses as directed. immediate eval if warning symptoms of neurovascular compromise. otherwise follow up if new/worsening symptoms. pt verbalizes understanding and agrees c tx plan. Jan,Lateral epicondylitis of right elbow (ICD-10 - M77.11)D Discussed with patient that symptoms and exam are consistent with lateral epicondylitis. Discussed treatment options icluding steriod burst, ice, and Tylenol. Take medication as prescribed. Complete all doses of medication, even if sx are no longer present. Pt instructed to take medication with food. Informed pt that medication may make pt feel jittery, hungry and give you extra energy. Medicati on may also increase blood pressure and increase blood sugar. Pt also advised not to take NSAIDs while using steroids.Directed on use of prednisone. Discussed with patient to use ice for 20 minute intervals 3-4 times per day. Educated patient on strenghtening exercises to perform 2-3 times per day.Also suggested to use a tennis elbow brace during working hours to exert pressue on the area. Discussed with patient that that if symptoms worsen, change or show no improvement to follow-up if no improvement. She verbalizes understnading Jan,Folliculitis (ICD-10 - L73.9)Discussed folliculitis vs hydrantative supprative. Discussed trial of Mupiricon ointment at the onset of symptoms. Discussed when to follow-up for further treatment. Pt would like to trial the ointment. Follow-up as needed. [employer] Other 05-11-2022 NoteEchocardiology Procedure Exam Date/Time Accession # Ordering Echo Transthoracic 08/25/2021 15:36 EDT [id number] Jay DAVEY, Samir Rivera CPT code 62977 Reason for Exam (Echo Transthoracic Complete) Bradycardia;Other [...] (Electronic Signature): 08/26/2021 8:49 am Signed by: Mariam Salazar MD Transcribed by: kerry Technologist: [facility]04-21-2022 Note Echocardiology Procedure Exam Date/Time Accession # Ordering ECG Stress Exercise 08/06/2021 10:22 EDT [id number] Jay DAVEY, Samir Rivera CPT code 19637 Reason for Exam (ECG Stress Exercise) bradycardia;Other [...] (Electronic Signature): 08/06/2021 2:57 pm Signed by: Mariam Salazar MD Transcribed by: nakul Technologist: [facility]03-31-2022 Evaluation note* Encounter Date Diagnosis Assessment [...] continue to monitor through routine blood work Jun,Enlarged thyroid (ICD-10 - E04.9) Discussed with pt further evaluation of tyroid with ultrasound. Pt would like to proceed. Reports that this was idenitifed while she was in high school on two different occasions.Order faxed to [employer]. Jun,Gastroesophageal reflux disease without esophagitis (ICD-10 - K21.9) Reflux symptoms remain unchanged. Discussed the importance of meal content. They should avoid overeating and eating meals late in the evening. Take medication as directed and we will continue to monitor. Jun,History of gastric surgery (ICD-10 - Z98.890) Jun,Iron deficiency (ICD-10 - E61.1) Last iron levels were within normal from April. Scanned into pt chart. Jun,Vitamin D deficiency (ICD-10 - E55.9) Her last Vitmain D was 24, and this results was scanned into chart. Jun,Vitamin A deficiency (ICD-10 - E50.9) Last level in April was low, discussed needing to take a Mutivitmain. Jun,Former smoker (ICD-10 - Z87.891) [facility] Other Evaluation + Plan note Future Appointments Appointment Date:08/06/2021 09:30:00 AM [facility]uled [facility] Type:CV Stress (FT) Appointment Date:08/06/2021 11:00:00 AM Scheduled Provider: [facility] Type:CV Holter/Event (FT) Future Scheduled Tests Radiology* Echo Transthoracic Complete 07/24/21 * ECG Stress [facility] Future App[facility]ments Appointment Date:08/11/2021 10:30:00 AM Scheduled Provider:Samir Thompson MD [facility] Appointment Type:Cardiology Follow Up (FT) [facility] Future Appointments Appointment Date:09/01/2021 02:30:00 PM Scheduled Provider:Samir Thompson MD [facility] Appointment Type:Cardiology Follow Up (FT) [facility] Future Appointments Appointment Date:2022 11:15:00 AM Scheduled Provider:Samir Thompson MD [facility]iology Follow Up (FT) [facility] noteNo InformationNortHeritage [facility] Other Evaluation noteNo assessment information available [facility] Work Phone: Evaluation note* Diagnosis Onset Date Resolution Status Anemia acuteAnxiety and depressionacuteBipolar disorderacuteIron deficiency anemiaacute [facility] Work Phone: Evaluation note* Diagnosis Onset Date Resolution Status Abdominal pain acuteChillsacuteConstipationacuteFeveracuteH/O gastric sleeveacuteVomitingacute [facility] Work Phone: Evaluation note* Diagnosis Onset Date Resolution Status [id number] acuteLaxity of ligamentacuteMultidirectional instability of glenohumeral joint acuteNumbness of right handacuteOther instability, right shoulderacute [facility] Work Phone: Evaluation note* Diagnosis Onset Date Resolution Status [id number] acuteLaxity of ligamentacuteMultidirectional instability of glenohumeral joint acuteNumbness of right handacuteOther instability, right shoulderacute PSU-[id number] of ligamentacuteMultidirectional instability of glenohumeral jointacuteNumbness of right handacuteOther instability, right shoulderacuteRight carpal tunnel syndromeacute [facility] Work Phone: Evaluation note* Diagnosis Onset Date Resolution Status [id number] acuteLaxity of ligamentacuteMultidirectional instability of glenohumeral joint acuteNumbness of right handacuteOther instability, right shoulderacute YBT-[id number] of ligamentacuteMultidirectional instability of glenohumeral jointacuteNumbness of right handacuteOther instability, right shoulderacuteRight carpal tunnel aqrvvfzgpdwzzGOU-YEFU-[id number] of ligamentacuteMultidirectional instability of glenohumeral jointacuteOther instability, right shoulderacuteRight carpal tunnel syndromeacute [facility] Work Phone: Evaluation note* Diagnosis Onset Date Resolution Status [id number] acuteLaxity of ligamentacuteMultidirectional instability of glenohumeral joint acuteNumbness of right handacuteOther instability, right shoulderacute LEY-[id number] of ligamentacuteMultidirectional instability of glenohumeral jointacuteNumbness of right handacuteOther instability, right shoulderacuteRight carpal tunnel rvvducrawkliiSUW-HHNT-[id number] of ligamentacuteMultidirectional instability of glenohumeral jointacuteOther instability, right shoulderacuteRight carpal tunnel syndromeacute FNV-QIEZ-[id number] of ligamentacuteMultidirectional instability of glenohumeral jointacuteOther instability, right shoulderacuteRight carpal tunnel syndromeacuteStatus post arthroscopy of right shoulderacute [facility] Work Phone: Evaluation note* Diagnosis Onset Date Resolution Status [id number] acuteLaxity of ligamentacuteMultidirectional instability of glenohumeral joint acuteNumbness of right handacuteOther instability, right shoulderacuteRight carpal tunnel idsojminrfqecWDX-DQIX-[id number] of ligamentacute Multidirectional instability of glenohumeral jointacuteOther instability, right shoulderacuteRight carpal tunnel ykekpmrpmwiijOOR-TIPS-[id number] of ligamentacuteMultidirectional instability of glenohumeral jointacuteOther instability, right shoulderacuteRight carpal tunnel syndromeacuteStatus post arthroscopy of right shoulderacuteStatus post surgerynoneactive TAW-RXCQ-[id number] of ligamentacuteMultidirectional instability of glenohumeral jointacuteOther instability, right shoulderacuteRight carpal tunnel syndromeacuteStatus post arthroscopy of right shoulderacuteStatus post surgery noneactive [facility] Work Phone: Evaluation note* Diagnosis Well woman exam with routine gynecological exam Routine gynecological examination [facility] 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 [facility] Diagnosis Reproductive mgmt, 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 Special screening examination for infectious diseases Screening examination for unspecified infectious disease Encounter for other genetic testing of female for procreative management [facility]* Diagnosis Bipolar 1 disorder (Multi)- Primary Infertility counseling documented in this encounter [facility] Work Phone: Evaluation note* Diagnosis Treatment plan provided- Primary [facility]* Diagnosis Reproductive mgmt, 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 [facility]* Diagnosis Procreative management- Primary Unspecified procreative management [facility]* Diagnosis Female infertility- Primary Female infertility of unspecified origin documented [facility]* Diagnosis Fertility testing- Primary Female infertility Female infertility of unspecified origin [facility]* Diagnosis Encounter for fertility planning [Z31.89]- Primary Other specified procreative management [facility]* Diagnosis Encounter for artificial insemination- Primary Artificial insemination [facility]* Diagnosis 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)- Primary [facility]* Diagnosis 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)- Primary [facility]* Diagnosis Abnormal thyroid function test- Primary Nonspecific abnormal results of thyroid function study 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 Vitamin D deficiency [facility] Diagnosis 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) [facility]* Diagnosis Early stage of (HCC) state, incidental [facility]* Diagnosis Amenorrhea Absence of menstruation 9 weeks gestation of Missed menses , unspecified gestational age Encounter for supervision of normal first in first trimester [facility] Diagnosis 13 weeks gestation of (HHS-HCC) Second trimester (HHS-HCC) state, incidental Thyroid disease Unspecified disorder of thyroid H/O gastric sleeve H/O iron deficiency anemia resulting from in vitro fertilization in first trimester (HHS-HCC) documented in this encounter [facility]* Diagnosis Well woman exam with routine gynecological exam Routine gynecological examination Exposure to STD Second trimester (HHS-HCC) state, incidental 18 weeks gestation of (HHS-HCC) Need for maternal serum alpha-protein (MSAFP) screening ([facility]-HCC) Screening, , for anatomic survey ([facility]) Encounter for anatomic survey Thyroid disease Unspecified disorder of thyroid documented in this encounter [facility]* Diagnosis Previous gastric bypass affecting , antepartum- Primary Hypothyroidism affecting in second trimester 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 (CMS-HCC) Obesity affecting in second trimester, unspecified obesity type Encounter for supervision of resulting from assisted reproductive technology, antepartum [facility] Diagnosis 20 weeks gestation of - Primary Previous gastric bypass affecting , antepartum Obesity affecting in second trimester, unspecified obesity type Hypothyroidism affecting in second trimester 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 (CMS-HCC) headache in second trimester [facility]* Diagnosis 22 weeks gestation of ([facility]-HCC) Second trimester ([facility]-HCC) state, incidental Thyroid disease Unspecified disorder of thyroid H/O gastric sleeve H/O iron deficiency anemia Diabetes mellitus screening Screening for diabetes mellitus documented in this encounter [facility] HealthcareEvaluation note* Diagnosis Previous gastric bypass affecting , antepartum- Primary Hypothyroidism affecting in second trimester 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 (CMS-HCC) Obesity affecting in second trimester, unspecified obesity type [facility]* Diagnosis 26 weeks gestation of (HHS-HCC) Second trimester ([facility]-HCC) state, incidental TSH (thyroid-stimulating hormone deficiency) Other specified acquired hypothyroidism documented in this encounter [facility] HealthcareEvaluation note* Diagnosis Third trimester (HHS-HCC) state, incidental 29 weeks gestation of ([facility]-HCC) documented in this encounter [facility] HealthcareEvaluation note* Diagnosis Hypothyroidism affecting in second trimester- Primary headache in second trimester Previous gastric bypass affecting , antepartum 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 ([facility]) [facility] Narrative - Reported* Type Description Date Surgical History cholecystectomy 2014 Surgical History gastric sleeve 2020 [employer] Other History general Narrative - Reported* Type Description Date Medical History Hypothyroidism Medical HistoryMNGMedical HistoryenuresisMedical Historyextreme obesityMedical HistoryGERD with esophagitisMedical HistoryheadacheMedical HistoryGoiter, nontoxic, multinodularMedical HistoryVitamin D deficiencySurgical History [id number] Eznmfdgjqikbqyvmrtgqkc9108Wykoolis Historygastric lvdytz6762Gqxqsvuaawukxfs HistoryAnemia05/2022 [employer] Other Hospital course Narrative No data available for this section [facility] Discharge instructions No data available for this section [facility] Discharge instructions Additional Instructions POSTOPERATIVE INSTRUCTIONS FOR SHOULDER LABRAL REPAIR Romeo Santana DO Orthopedic Surgeon [facility] GENERAL INSTRUCTIONS: Use ice packs [...] office immediately. Romeo Santana DO Orthopedic Surgeon [facility] Office: [address] [place], [place] [address] Office number: [phone] [facility] Work Phone: Hospital Discharge instructionsAmbulatory Orders* Referral to Allergy/Immunology Time Frame: 04/26/24, Location: None Selected [facility] Work Phone: Hospital Discharge instructions Additional Instructions We evaluated you for your vaginal bleeding in . Your ultrasound was normal, the baby has a good heart rate, measuring at 13 weeks and 1 day. Your cervix was closed. Follow-up closely with your SENIOR JAVA ENGINEER. Return to the emergency department if you develop any worsening or concerning symptoms.[facility] Work Phone: InstructionsNot on filedocumented in this encounter [facility] SystemInstructionsNot on filedocumented in this encounter [facility] SystemInstructions* Attachments The following attachments cannot be sent through Care Everywhere. * Preeclampsia ([place]) documented in this encounterProMedica [facility] SystemInstructionsNot on file documented in this encounterProMedica [facility] SystemInstructionsNot on file documented in this encounterProKettering [facility] SystemReason for referral (narrative)No reason for referral information availableK[facility] Work Phone: Reason for visit Narrative* Consult, Test, Treat (Routine) - ClosedSpecialtyDiagnoses / ProceduresReferred By ContactReferred To ContactREPRODUCTIVE ENDOCRINOLOGY & FERTILITY Diagnoses Encounter for procreative management, unspecified Encounter for other procreative management Procedures ARTIFIC INSEMINATION INTRAUTERIN THAWING CRYOPRESERVED SPERM/SEMEN EACH ALIQUOT Daniel Hanna APRN.DEPLOYMENT SPECIALIST [address] [place] [address] Phone: tel: fax: Reproductive Endocrinology Infertility [address] [place] [address] Phone: tel: Referral IDStatusReasonStart DateExpiration DateVisits RequestedVisits [id number] Financial Clearance Required - Self Pay Patient Cleared - True Self-Pay required payment collected Do Not Bill Insurance - SP patient [facility] for visit Narrative* Diagnostic Procedure Only (Routine) - AuthorizedSpecialtyDiagnoses / ProceduresReferred By ContactReferred To ContactFROEDTERT [facility] Diagnoses Fertility testing Procedures PELVIC US WHI US PELVIC NONOBSTETRIC REAL-TIME IMAGE COMPLETE Ignacio Guy MD [address] [place] [address] Phone: tel: fax: [facility] [address] [place] [address] Referral IDStatusReasonStwichita DateExpiration DateVisits RequestedVisits [id number] Auto-Generated Referral Patient Cleared - True Self-Pay required payment collected Do Not Bill Insurance - SP patient / [facility] for visit Narrative* Consult, Test, Treat (Routine) - ClosedSpecialtyDiagnoses / ProceduresReferred By ContactReferred To Contact REPRODUCTIVE ENDOCRINOLOGY & FERTILITY Diagnoses Encounter for procreative management, unspecified Encounter for other procreative management Procedures THAWING CRYOPRESERVED SPERM/SEMEN EACH ALIQUOT ARTIFIC INSEMINATION INTRAUTERIN Daniel Hanna APRN.DEPLOYMENT SPECIALIST [address] [place] [address] Phone: tel: fax: Reproductive Endocrinology Infertility [address] [place] [address] Phone: tel: Referral IDStatusReasonStart DateExpiration DateVisits RequestedVisits [id number] Patient Cleared - True Self-Pay required payment collected Do Not Bill Insurance - SP patient / [facility] for visit Narrative* Financial Clearance (Routine) - ClosedSpecialtyDiagnoses / ProceduresReferred By ContactReferred To Contact FINANCE Diagnoses Collect for IUI-D washed sample Procedures THAWING CRYOPRESERVED SPERM/SEMEN EACH ALIQUOT ARTIFIC INSEMINATION INTRAUTERIN FINANCIAL CLEARANCE PHONE CALL Self Financial Clearance Phone Screening [place] [address] Referral IDStatusReasonStart DateExpiration DateVisits RequestedVisits [id number] Financial Clearance Required - Self Pay Patient Cleared - True Self-Pay required payment collected Do Not Bill Insurance - SP patient / [facility] for visit Narrative* Diagnostic Procedure Only (Routine) - ClosedSpecialtyDiagnoses / ProceduresReferred By ContactReferred To Contact [facility] Diagnoses 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) Procedures OBSTETRIC ULTRASOUND WHI US PREG UTERUS AFTER 1ST TRIMEST GESTATION Melodie Hernandez APRN.DEPLOYMENT SPECIALIST [address] [place] [address] Phone: tel: fax: [place] [address] Referral IDStatusReasonStart DateExpiration DateVisits RequestedVisits [id number] Auto-Generated Referral / [facility] for visit Narrative* Diagnostic Procedure Only (Routine) - ClosedSpecialtyDiagnoses / ProceduresReferred By ContactReferred To Contact [facility] Diagnoses Early stage of (HCC) Procedures OBSTETRIC ULTRASOUND WHI US PREG UTERUS AFTER 1ST TRIMEST GESTATION Melodie Hernandez APRN.DEPLOYMENT SPECIALIST [address] [place] [address] Phone: tel: fax: [place] [address] Referral IDStatusReasonStart DateExpiration DateVisits RequestedVisits [id number] Auto-Generated Referral [facility] Advance Directives No Advanced Directives Records FoundDocuments on File TypeDate RecordedPatient RepresentativeExplanationACP-Advance DirectiveACP-Power of AttorneyTypeDate RecordedPatient RepresentativeExplanationACP-Advance DirectiveACP-Power of AttorneyCode StatusDate ActivatedDate InactivatedComments Full Code05/06/2020 4:42 PM Advance Directive Response Recorded Date/ [...] drive you home after your procedure. Your transit bus driver must be 18 years of age [...] questions, call the Pre-Admission Testing Unit at [phone]. Day of Surgery/Procedure As a patient at [facility] you can expect quality medical and nursing care that is centered on your individual needs. Our goal is to make your surgical experience as comfortableas possible . Directions to the Surgery Center [facility] is located at [address] [place] [address]. Please pull into the Emergency parking lot and stop at the fur glazer dotson. We offer free fur glazer service for all our surgery patients, if you choose not to have [employer] parking we have additional parking across the street.You will enter the facility following the [facility] sign. Please stop at the receptionist airline lounge desk where you will be checked in by the staff. If you have any questions please call [phone]. Transportation after your procedure. You will need a friend or family member to drive you home after your procedure. Your transit bus driver must be18 years of age or [...] may shave your face or neck. ? [place] your teeth but do not swallow water. [...] or the day of surgery, please call [phone], or [phone] documented in this encounter* Instructions* Mukesh Montez, [...] 48 hours call the anesthesia department at [phone]. Will you need pain medication? The nerve [...] block please phone the Anesthesiology Department at [phone]. If the phone does not get answered please contact the hospital friction saw operator at [phone] to page the radio electronics officer anesthesiologist Discharge Instructions for Bariatric Surgery You had a Laparoscopic Sleeve Gastrectomy (90714) surgery to treat obesity. Recovery from this [...] scheduled appointment, please call the office at [phone]. Call Your Doctor If Any of the [...] AM EST CLINICAL PHARMACY NOTE: MEDS TO [facility] Patient?: No Total # of Prescriptions Filled: 3 The following medications were delivered to the patient: Oxycodone-acetaminophen 5/325 mg tab Cyclobenzaprine 10 mg tab Enoxaparin 60mg /0.6 ml syr Total # of Interventions Completed: 1 Time Spent (min): 60 Additional Documentation:called complex case manager about the high co-pay on [...] Date/T sanjuanita Not Specified Hypothyroidism Unknown Not SpecifiedDepressionUnknownOveractive bladderUnknownfatherHypertensionUnknown sisterOveractive bladderUnknown Relationship Condition Age at Onset Recorded Date/T sanjuanita Not Specified Hypothyroidism Unknown Not SpecifiedDepressionUnknownOveractive bladderUnknownfatherHypertensionUnknown sisterOveractive bladderUnknownFamily history of thyroid diseaseUnknownDiabetes mellitusUnknownNot SpecifiedFamily history of mental disorderUnknown Relationship Condition Age at Onset Recorded Date/T sanjuanita Not Specified Hypothyroidism Unknown motherDepressionUnknownOveractive bladderUnknownfatherHypertensionUnknownsister Overactive bladderUnknownFamily history of thyroid diseaseUnknownDiabetes mellitusUnknownmotherFamily history of mental disorderUnknown Relationship Condition Age at Onset Recorded Date/T sanjuanita mother Overactive bladder Unknown DepressionUnknownHypothyroidismUnknownFamily history of thyroid diseaseUnknown Family history of mental disorderUnknownfatherOveractive bladderUnknown HypertensionUnknownDiabetes mellitusUnknownsisterOveractive bladderUnknown Chief Complaint and Reason for Visit Chief Complaint G89.29 M25.511 vaginal bleeding Urogenital/Dizziness Chief Complaint G89.29 M25.511 vaginal bleeding Urogenital/Dizziness R30.9 Chief Complaint G89.29 M25.511 vaginal bleeding Urogenital/Dizziness R30.9 abnormal labsReason for VisitAnemia Anxiety and depression Bipolar disorder Iron deficiency anemia Chief Complaint vaginal bleeding Urogenital/Dizziness R30.9 abnormal labsReason for VisitAnemia Anxiety and depression Bipolar disorder Iron deficiency anemia Chief Complaint vaginal bleeding Urogenital/Dizziness R30.9 Z79.899 abnormal labsReason for VisitAnemia Anxiety and depression Bipolar disorder Iron deficiency anemia Chief Complaint 8 Weeks After Therap y Abdominal Pain/ Bowel IssuesReason for VisitAbdominal pain Chills Constipation Fever H/O gastric sleeve Vomiting Chief Complaint OP SP RT SHOULDER DI SCUSS SURGERY Reason for Visit [id number] Laxity of ligament Multidirectional instability of glenohumeral joint Numbness of right hand Other instability, right shoulder Chief Complaint OP SP RT SHOULDER DI SCUSS SURGERY R20.0Reason for [id number]-[id number] Laxity of ligament Multidirectional instability of glenohumeral joint Numbness of right hand Other instability, right shoulder Chief Complaint OP SP RT SHOULDER DI SCUSS SURGERY R20.0 EMG RESULTSReason for [id number] Laxity of ligament Multidirectional instability of glenohumeral joint Numbness of right hand Other instability, right shoulder [id number] Laxity of ligament Multidirectional instability of glenohumeral joint Numbness of right hand Other instability, right shoulder Right carpal tunnel syndrome Chief Complaint OP SP RT SHOULDER DI SCUSS SURGERY R20.0 EMG RESULTS Shoulder painReason for [id number]-[id number] Laxity of ligament Multidirectional instability of glenohumeral joint Numbness of right hand Other instability, right shoulder [id number] Laxity of ligament Multidirectional instability of glenohumeral joint Numbness of right hand Other instability, right shoulder Right carpal tunnel syndrome Chief Complaint OP SP RT SHOULDER DI SCUSS SURGERY R20.0 EMG RESULTS Shoulder pain H & P RIGHT SHOULDER ARTHROSCOPY 02-66-25Wzqhid for [id number] Laxity of ligament Multidirectional instability of glenohumeral joint Numbness of right hand Other instability, right shoulder [id number] Laxity of ligament Multidirectional instability of glenohumeral joint Numbness of right hand Other instability, right shoulder Right carpal tunnel syndrome [id number] Laxity of ligament Multidirectional instability of glenohumeral joint Other instability, right shoulder Right carpal tunnel syndrome Chief Complaint OP SP RT SHOULDER DI SCUSS SURGERY R20.0 EMG RESULTS Shoulder pain H & P RIGHT SHOULDER ARTHROSCOPY 12-07-23 Shoulder pain Shoulder painReason for [id number] Laxity of ligament Multidirectional instability of glenohumeral joint Numbness of right hand Other instability, right shoulder [id number] Laxity of ligament Multidirectional instability of glenohumeral joint Numbness of right hand Other instability, right shoulder Right carpal tunnel syndrome [id number] Laxity of ligament Multidirectional instability of glenohumeral joint Other instability, right shoulder Right carpal tunnel syndrome Chief Complaint OP SP RT SHOULDER DI SCUSS SURGERY R20.0 EMG RESULTS Shoulder pain H & P RIGHT SHOULDER ARTHROSCOPY 12-07-23 Shoulder pain Shoulder pain 10-14 DAYS POST OPReason for [id number]-[id number] Laxity of ligament Multidirectional instability of glenohumeral joint Numbness of right hand Other instability, right shoulder [id number] Laxity of ligament Multidirectional instability of glenohumeral joint Numbness of right hand Other instability, right shoulder Right carpal tunnel syndrome [id number] Laxity of ligament Multidirectional instability of glenohumeral joint Other instability, right shoulder Right carpal tunnel syndrome [id number] Laxity of ligament Multidirectional instability of glenohumeral joint Other instability, right shoulder Right carpal tunnel syndrome Status post arthroscopy of right shoulder Chief Complaint R20.0 EMG RESULTS Shoulder pain H & P RIGHT SHOULDER ARTHROSCOPY 12-07-23 Shoulder pain Shoulder pain 10-14 DAYS POST OP R20.0 4 WEEKSReason for [id number]-[id number] Laxity of ligament Multidirectional instability of glenohumeral joint Numbness of right hand Other instability, right shoulder Right carpal tunnel syndrome [id number] Laxity of ligament Multidirectional instability of glenohumeral joint Other instability, right shoulder Right carpal tunnel syndrome [id number] Laxity of ligament Multidirectional instability of glenohumeral joint Other instability, right shoulder Right carpal tunnel syndrome Status post arthroscopy of right shoulder Status post surgery [id number] Laxity of ligament Multidirectional instability of glenohumeral [...] for Visit Admit Date 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 December 20, 2023 10:11am Laxity of ligament December 20, 2023 10:11am Multidirectional instability of glenohum eral joint December 20, 2023 10:11am Other instability, right shoulder Septem 2023 10:11am Right carpal tunnel syndrome December 192023 10:11am Status post arthroscopy of right shoulde r December 20, 2023 10:11am Status post surgery December 20, 2023 10:11am Degenerative superior labral zfchuliu-fk-woiidmapm (SLAP) tear of right matthias January 17, 2024 11:58am Laxity of ligament January 17, 2024 11 :58am Multidirectional instability of glenohum eral joint January 17, 2024 11:58am Other instability, right shoulder Octobe 2023 11:58am Right carpal tunnel syndrome January 11:58am Status post arthroscopy of right shoulde r January 17, 2024 11:58am Status post surgery January 17, 2024 11 :58am Degenerative superior labral mulkcpsw-cx-axnmshcrf (SLAP) tear of right matthias February 27, [...] for Visit Admit Date Degenerative superior labral otlabdfi-fx-suvdcbmhy (SLAP) tear of right matthias February 27, 2024 2:25pm Laxity of ligament February 27, 2024 2:25pm Multidirectional instability of glenohum eral joint February 27, 2024 2:25pm Other instability, right shoulder Novemb er 2023 2:25pm Right carpal tunnel syndrome February 262023 2:25pm Status post arthroscopy of right shoulde r February 27, 2024 2:25pm Status post surgery February 27, 2024 2:25pm Degenerative superior labral ceylxjzo-th-ilidarwqn (SLAP) tear of right matthias April 23, [...] for Visit Admit Date Degenerative superior labral afpishgd-iu-mfkynbadl (SLAP) tear of right matthias February 27, 2024 2:25pm Laxity of ligament February 27, 2024 2:25pm Multidirectional instability of glenohum eral joint February 27, 2024 2:25pm Other instability, right shoulder Novemb er 2023 2:25pm Right carpal tunnel syndrome February 262023 2:25pm Status post arthroscopy of right shoulde r February 27, 2024 2:25pm Status post surgery February 27, 2024 2:25pm Degenerative superior labral nyhncsdq-ot-ljsjecttv (SLAP) tear of right matthias April 23, [...] therapy exercises and steroid injection, MRI at [facility], Dr. 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) Referral Organization [facility] Family Medicin e [place] Referring Provider First Name Amanda Referring Provider Last Name Logan Referring Provider Specialty Nurse Pract itioner Referred Organization [facility] Referred Provider Darleen Sinclair Referred Address [address] [facility] [address],[place], [place],[address] Referred Provider Specialty Endocrinolog y Referral Priority Routine General Notes Fore, Chelsi M 023 11:26:34 AM >Received today and waiting for office notes to be locked before sending referral Additional Source Comments Reason for Visit (unrecogniz ed section and content) StatusReasonSpecialtyDiagnoses / ProceduresReferred By ContactReferred To Contact Diagnoses Morbid obesity (HCC) MORBID OBESITY, HYPOTHYROID Procedures CA LAP GASTRIC BYPASS/BEN-EN-Y XI LAPAROSCOPIC ROBOTIC GASTRIC BYPASS BEN-EN-Y, LIVER BIOPSY, EGD- GI UNIT SCHEDULED. Rashard Olivera, [address] [facility] [address] [place] [address] [facility] ReasonCommentsGynecologic ExamReasonCommentsInfertilitySpecialtyDiagnoses / ProceduresReferred By ContactReferred To ContactREPRODUCTIVE ENDOCRINOLOGY & FERTILITY Diagnoses Female infertility, unspecified Procedures VV OFFICE/OP CONSLTJ NEW/EST PT MOD MDM 40 MINUTES PcpAna Rosa, CONTRACT COORDINATOR [facility] [address] [place] [address] Referral IDStatusReasonStart DateExpiration DateVisits RequestedVisits [id number] Financial Clearance Required - Self Pay Patient Cleared - True Self-Pay required payment collected Do Not Bill Insurance - SP patient Financial Clearance Not Required /[id number] sperm teachSpecialtyDiagnoses / ProceduresReferred By ContactReferred To ContactREPRODUCTIVE ENDOCRINOLOGY & FERTILITY Diagnoses Infertility counseling Procedures OFFICE/OUTPATIENT ESTABLISHED MOD MDM 30 MIN Melodie Hernandez, CONTRACT COORDINATOR.[facility] [address] [facility] [facility] [address] [place] [address] [facility] [address] [id number] Referral IDStatusasonStwichita DateExpiration DateVisits RequestedVisits [id number] Financial Clearance Required - Self Pay Patient Cleared - True Self-Pay required payment collected Do Not Bill Insurance - SP patient /[id number] / ProceduresReferred By ContactReferred To ContactREPRODUCTIVE ENDOCRINOLOGY & FERTILITY Diagnoses Encounter for fertility testing Procedures OFFICE/OUTPATIENT ESTABLISHED LOW MDM 20 MIN [facility] [address] [place] [address] Whi Jamel [facility] [address] [place] [address] Referral IDStatusReasonStart DateExpiration DateVisits RequestedVisits [id number] Financial Clearance Required - Self Pay Patient Cleared - True Self-Pay required payment collected Do Not Bill Insurance - SP patient /[id number] PlanningReasonCommentsre iui this wknd/has cervical polyp questionReasonCommentsPatient calling back/re iui 07/07 unsureReasonCommentsPatient QuestionReasonCommentspositive for pregnancyReason CommentsPregnancyReasonCommentsThyroid ProblemFollow-up1.5 YRS PREGNANCYReason CommentsPainReasonCommentsAmenorrheaReasonCommentsRoutine VisitReason CommentsIUI pregnancyHx gastric bypassHashimoto's Thyroiditis Ordered Prescriptions (unrec ognized section and content) PrescriptionSigDispensedRefillsStart DateEnd Date enoxaparin (LOVENOX) 60 MG/0.6ML injection Inject 0.6 mLs into the skin 2 times daily 28 Syringe cyclobenzaprine (FLEXERIL) 10 MG tablet Take 1 tablet by mouth 2 times daily as needed for Muscle spasms 20 tablet cyclobenzaprine (FLEXERIL) 10 MG tablet Take 1 tablet by mouth nightly as needed for Muscle spasms 10 tablet / promethazine (PHENERGAN) 25 MG tablet Take 1 tablet by mouth every 6 hours as needed for Nausea 30 tablet promethazine (PHENERGAN) 25 MG tablet Take 1 tablet by mouth 4 times daily as needed for Nausea 20 tablet / oxyCODONE-acetaminophen (PERCOCET) 5-325 MG per tablet Indications:Post-op painTake 1 tablet by mouth every 6 hours as needed for Pain for up to 7 days. Intended supply: 3 days. Take lowest dose possible to manage pain 28 tablet / INFORMATION SOURCE (unrecogn ized section and content) DATE CREATED AUTHOR 05/08/2020 [facility] DATE CREATED AUTHOR AUTHOR'S ORGANIZ ATION 03/31/2021 [facility] DATE CREATED AUTHOR AUTHOR'S ORGANIZ ATION 09/04/2021 [facility] DATE CREATED AUTHOR AUTHOR'S ORGANIZ ATION 04/19/2024 [facility] DATE CREATED AUTHOR AUTHOR'S ORGANIZ ATION 05/05/2024 [facility] DATE CREATED AUTHOR AUTHOR'S ORGANIZ ATION 09/12/2024 [facility] DATE CREATED AUTHOR AUTHOR'S ORGANIZ ATION 10/05/2024 [facility] DATE CREATED AUTHOR AUTHOR'S ORGANIZ ATION 12/07/2024 [facility] DATE CREATED AUTHOR AUTHOR'S ORGANIZ ATION 12/07/2024 [facility] DATE CREATED AUTHOR AUTHOR'S ORGANIZ ATION 02/08/2025 [facility] EPIC DATE CREATED AUTHOR AUTHOR'S ORGANIZ ATION 02/08/2025 [facility] Care Teams (unrecognized sec tion and content) Team Status: Inactive Member Role Status Dates Mariam Appiah MD Primary Care Provider Active Amanda Ford APRN SMOKING TOBACCO PACKER HAND-CAttenrocky ProviderActive Team Status: Inactive Member Role Status Dates Amanda Ford APRN SMOKING TOBACCO PACKER HAND-C Primary Care Provider Active Dariel Howell ProviderActive Team Status: Inactive Member Role Status Dates Amanda Ford APRN SMOKING TOBACCO PACKER HAND-C Primary Care Provider Active Michelle Zhang ProviderActive Team Status: Active Member Role Status Dates Amanda Ford APRN SMOKING TOBACCO PACKER HAND-C Primary Care Provider Active Team Status: Inactive Member Role Status Dates Amanda Ford APRN SMOKING TOBACCO PACKER HAND-C Primary Care Provider, Attending Provider Active Team Status: Active Member Role Status Dates Amanda Ford APRN SMOKING TOBACCO PACKER HAND-C Primary Care Provider Active Dariel Howell ProviderActiveFarhad Gallego MDAdmit Provider, Attending ProviderActive Team Status: Inactive Member Role Status Dates Amanda Ford APRN SMOKING TOBACCO PACKER HAND-C Primary Care Provider Active Dariel Howell ProviderActiveFarhad Doverram , MDAdmit Provider, Attending ProviderActive Team Status: Inactive Member Role Status Dates Amanda Rohrbacher , CONTRACT COORDINATOR SMOKING TOBAC[employer] PACKER HAND-C Primary Care Provider Active Julieta Jefferson NP-CAttending ProviderActive Team Status: Inactive Member Role Status Dates Provider Conversion Attending Provider Active St art: May 17, 2023 End: May 17, 2023 Team Status: Inactive Member Role Status Dates Amanda Ford APRN SMOKING TOBACCO PACKER HAND-C Primary Care Provider, Attending Provider Active Start: June 08, 2023 End: June 08, 2023 Team Status: Active Member Role Status Dates Amanda Ford APRN SMOKING TOBACCO PACKER HAND-C Primary Care Provider, Attending Provider Active Start: September 15, 2023 Team Status: Inactive Member Role Status Dates Amanda Ford APRN SMOKING TOBACCO PACKER HAND-C Primary Care Provider Active Start: October 13, 2023 End: October 13, 2023Kenny Gary ProviderActiveStart: October 13, 2023 End: October 13, 2023 Team Status: Inactive Member Role Status Dates Amanda Ford APRN SMOKING TOBACCO PACKER HAND-C Primary Care Provider Active Start: October 26, 2023 End: October 26, 2023Kenny Gary ProviderActiveStart: October 26, 2023 End: October 26, 2023 Team Status: Inactive Member Role Status Dates Amanda Ford APRN SMOKING TOBACCO PACKER HAND-C Primary Care Provider Active Start: November 01, 2023 End: November 01, 2023Kenny Gary ProviderActiveStart: November 01, 2023 End: November 01, 2023 Team Status: Inactive Member Role Status Dates Amanda Ford APRN SMOKING TOBACCO PACKER HAND-C Primary Care Provider Active Start: November 28, 2023 End: November 28, 2023Kenny Gary ProviderActiveStart: November 28, 2023 End: November 28, 2023 Team Status: Inactive Member Role Status Dates Amanda oFrd APRN SMOKING TOBACCO PACKER HAND-C Primary Care Provider Active Start: December 01, 2023 End: December 01, 2023Kenny Gary ProviderActiveStart: December 01, 2023 End: December 01, 2023 Team Status: Inactive Member Role Status Dates Amanda Ford APRN SMOKING TOBACCO PACKER HAND-C Primary Care Provider Active Start: December 07, 2023 End: December 07, 2023Romeo Santana DOAttending ProviderActiveStart: December 07, 2023 End: December 07, 2023 Team Status: Active Member Role Status Dates Amanda Ford APRN SMOKING TOBACCO PACKER HAND-C Primary Care Provider Active Start: December 07, 2023 Romeo Santana DOAttending Provider, Other ProviderActiveStart: December 07, 2023 Team Status: Inactive Member Role Status Dates Amanda Ford APRN SMOKING TOBACCO PACKER HAND-C Primary Care Provider Active Start: December 192023 End: December 20, 2023Romeo Santana DOAttending ProviderActiveStart: December 20, 2023 End: December 20, 2023 Team Status: Active Member Role Status Dates Amanda Ford APRN SMOKING TOBACCO PACKER HAND-C Primary Care Provider Active Start: December 182023 Romeo Santana , DOOther ProviderActiveStart: January 10, 2024 Daniel Hampton MDAttending ProviderActiveStart: January 10, 2024 Team Status: Inactive Member Role Status Dates Amanda Ford APRN SMOKING TOBACCO PACKER HAND-C Primary Care Provider Active Start: January 17, 2024 End: January 17, 2024Romeo Santana DOAttending ProviderActiveStart: January 17, 2024 End: January 17, 2024Team MemberRelationshipSpecialtyStart DateEnd Date Amanda Ford NP [address] [place] [address] PCP - [facility]01/17/23Team MemberRelationshipSpecialtyStart DateEnd Date Amanda Ford NP [address] [place] [address] [facility] - [facility]01/17/23 Team Status: Inactive Member Role Status Dates Amanda Ford APRN SMOKING TOBACCO PACKER HAND-C Primary Care Provider Active Start: February 262023 End: February 27, 2024Romeo Santana DOAttending ProviderActiveStart: February 27, 2024 End: February 27, 2024Team MemberRelationshipSpecialtyStart DateEnd Date Amanda Ford NP PCP - GeneralFamily Fbngmkfh56/2/23 Team Status: Active Member Role Status Dates Amanda Ford APRN SMOKING TOBACCO PACKER HAND-C Primary Care Provider Active Start: February Les Martinez DOAttending ProviderActiveStart: February 20, 2024 Team Status: Inactive Member Role Status Dates Amanda Ford APRN SMOKING TOBACCO PACKER HAND-C Primary Care Provider Active Start: April 23, 2024 End: April 23, 2024Romeo Santana DOAttpeewee ProviderActiveStart: April 23, 2024 End: April 23, 2024 Team Status: Inactive Member Role Status Dates Amanda Ford APRN SMOKING TOBACCO PACKER HAND-C Primary Care Provider, Attending Provider Active Start: April 26, 2024 End: April 26, 2024Team MemberRelationshipSpecialtyStart DateEnd Date Amanda Ford NP [address] [place] [address] [facility] Trxhqvxj03/2/23Team MemberRelationshipSpecialtyStart DateEnd Date Amanda Ford NP [address] [place] [address] PCP - GeneralFamily Nqqohnqu34/2/23Team MemberRelationshipSpecialtyStart DateEnd Date Amanda Ford NP [address] [place] [address] PCP - GeneralFamily Okhcmwkh49/2/23Team MemberRelationshipSpecialtyStart DateEnd Date Amanda Ford NP [address] [place] [address] PCP - GeneralFamily Kdyyzfai57/2/23 Team Status: Inactive Member Role Status Dates Amanda Ford APRN SMOKING TOBACCO PACKER HAND-C Primary Care Provider Active Start: October 18, 2024 End: October 18Michelle Bonilla ProviderActiveStart: October 18, 2024 End: October 18, 2024Team MemberRelationshipSpecialtyStart DateEnd Date Amanda Ford NP [address] [place] [address] PCP - GeneralFamily Pdjtkhlc01/2/23Team MemberRelationshipSpecialtyStart DateEnd Date No Pcp, [place] [address] PCP - GeneralFamily Medicine05/20/20Team MemberRelationshipSpecialtyStart DateEnd Date No Pcp, [place] [address] PCP - GeneralFamily Medicine05/20/20Team MemberRelationshipSpecialtyStart DateEnd Date Amanda Ford NP [address] [place] [address] PCP - GeneralFamily Kfcxtzae80/2/23Team MemberRelationshipSpecialtyStart DateEnd Date Amanda Ford NP [address] [place] [address] PCP - GeneralFamily Znuqsmnu72/2/23Team MemberRelationshipSpecialtyStart DateEnd Date Amanda Ford NP [address] [place] [address] PCP - GeneralFamily Doppsdoj89/2/23 Team Status: Active Member Role Status Dates Amanda Ford APRN SMOKING [employer]BAC[employer] PACKER HAND-C Primary Care Provider Active Start: November 17, 2024 eKnny La ProviderActiveStart: November 17, 2024 Team Status: Active Member Role Status Dates Amanda Ford APRN SMOKING TOBACCO PACKER HAND-C Primary Care Provider Active Start: November 20, 2024 Les Martinez DOAttending ProviderActiveStart: November 20, 2024 Team Status: Active Member Role Status Dates Amanda Ford APRN SMOKING TOBACCO PACKER HAND-C Primary Care Provider Active Start: November 30, 2024 Chris Dickerson , DOAttending ProviderActiveStart: November 30, 2024 Team Status: Inactive Member Role Status Dates Chris Dickerson DO Attending Provider Active S tart: November 30, 2024 End: November 30, 2024 Team Status: Active Member Role Status Dates Elizabeth Osborne NP-C Attending Provider Active S tart: December 01, 2024 Team Status: Inactive Member Role Status Dates Amanda Ford APRN SMOKING TOBACCO PACKER HAND-C Primary Care Provider Active Start: December 02, 2024 End: December 03, 2024Eduardo Cruz DOAttending ProviderActiveStart: December 02, 2024 End: December 03, 2024Team MemberRelationshipSpecialtyStart DateEnd Date No Pcp, [place] [address] PCP - GeneralFamily Medicine05/20/20Team MemberRelationshipSpecialtyStart DateEnd Date No Pcp, [place] [address] PCP - GeneralFamily Medicine05/20/20Team MemberRelationshipSpecialtyStart DateEnd Date Amanda Ford NP [address] [place] [address] PCP - GeneralFamily Eqsoipve37/2/23Team MemberRelationshipSpecialtyStart DateEnd Date No Pcp, [place] [address] PCP - GeneralFamily Medicine05/20/20Team MemberRelationshipSpecialtyStart DateEnd Date No Pcp, [place] [address] PCP - GeneralFamily Medicine05/20/20Team MemberRelationshipSpecialtyStart DateEnd Date Amanda Ford NP [address] [place] [address] PCP - GeneralFamily Hrgajnlf52/2/23Team MemberRelationshipSpecialtyStart DateEnd Date Amanda Ford NP [address] [facility] [place] [address] PCP - Generalmi Bkcoxgrc07/2/23Team MemberRelationshipSpecialtyStart DateEnd Date Amanda Ford NP [address] [place] [address] PCP - Generalmily Lpxdllsd33/2/23 Goals (unrecognized section and content) Type Treatment [...] or prosecute any alcohol or drug abuse patient.[facility] SystemIn the event this information is protected by the Federal Confidentiality of Alcohol and Drug Abuse Patient Records regulations: The Federal rules restrict any use of the information to criminally investigate or prosecute any alcohol or drug abuse patient.[facility] SystemIn the event this information is protected by the Federal Confidentiality of Alcohol and Drug Abuse Patient Records regulations: The Federal rules restrict any use of the information to criminally investigate or prosecute any alcohol or drug abuse patient.[facility] SystemIn the event this information is protected by the Federal Confidentiality of Alcohol and Drug Abuse Patient Records regulations: The Federal rules restrict any use of the information to criminally investigate or prosecute any alcohol or drug abuse patient.[facility] SystemIn the event this information is protected by the Federal Confidentiality of Alcohol and Drug Abuse Patient Records regulations: The Federal rules restrict any use of the information to criminally investigate or prosecute any alcohol or drug abuse patient.[facility] SystemIn the event this information is protected by the Federal Confidentiality of Alcohol and Drug Abuse Patient Records regulations: The Federal rules restrict any use of the information to criminally investigate or prosecute any alcohol or drug abuse patient.[facility] SystemIn the event this information is protected by the Federal Confidentiality of Alcohol and Drug Abuse Patient Records regulations: The Federal rules restrict any use of the information to criminally investigate or prosecute any alcohol or drug abuse patient.[facility] SystemIn the event this information is protected by the Federal Confidentiality of Alcohol and Drug Abuse Patient Records regulations: The Federal rules restrict any use of the information to criminally investigate or prosecute any alcohol or drug abuse patient.[facility] SystemIn the event this information is protected by the Federal Confidentiality of Alcohol and Drug Abuse Patient Records regulations: The Federal rules restrict any use of the information to criminally investigate or prosecute any alcohol or drug abuse patient.[facility] SystemIn the event this information is protected by the Federal Confidentiality of Alcohol and Drug Abuse Patient Records regulations: The Federal rules restrict any use of the information to criminally investigate or prosecute any alcohol or drug abuse patient.[facility] SystemIn the event this information is protected by the Federal Confidentiality of Alcohol and Drug Abuse Patient Records regulations: The Federal rules restrict any use of the information to criminally investigate or prosecute any alcohol or drug abuse patient.[facility] SystemIn the event this information is protected by the Federal Confidentiality of Alcohol and Drug Abuse Patient Records regulations: The Federal rules restrict any use of the information to criminally investigate or prosecute any alcohol or drug abuse patient.[facility] SystemIn the event this information is protected by the Federal Confidentiality of Alcohol and Drug Abuse Patient Records regulations: The Federal rules restrict any use of the information to criminally investigate or prosecute any alcohol or drug abuse patient.[facility] SystemIn the event this information is protected by the Federal Confidentiality of Alcohol and Drug Abuse Patient Records regulations: The Federal rules restrict any use of the information to criminally investigate or prosecute any alcohol or drug abuse patient.[facility] SystemIn the event this information is protected by the Federal Confidentiality of Alcohol and Drug Abuse Patient Records regulations: The Federal rules restrict any use of the information to criminally investigate or prosecute any alcohol or drug abuse patient.[facility] SystemIn the event this information is protected by the Federal Confidentiality of Alcohol and Drug Abuse Patient Records regulations: The Federal rules restrict any use of the information to criminally investigate or prosecute any alcohol or drug abuse patient.[facility] SystemIn the event this information is protected by the Federal Confidentiality of Alcohol and Drug Abuse Patient Records regulations: The Federal rules restrict any use of the information to criminally investigate or prosecute any alcohol or drug abuse patient.[facility] SystemIn the event this information is protected by the Federal Confidentiality of Alcohol and Drug Abuse Patient Records regulations: The Federal rules restrict any use of the information to criminally investigate or prosecute any alcohol or drug abuse patient.[facility] SystemIn the event this information is protected by the Federal Confidentiality of Alcohol and Drug Abuse Patient Records regulations: The Federal rules restrict any use of the information to criminally investigate or prosecute any alcohol or drug abuse patient.[facility] SystemIn the event this information is protected by the Federal Confidentiality of Alcohol and Drug Abuse Patient Records regulations: The Federal rules restrict any use of the information to criminally investigate or prosecute any alcohol or drug abuse patient.[facility] SystemIn the event this information is protected by the Federal Confidentiality of Alcohol and Drug Abuse Patient Records regulations: The Federal rules restrict any use of the information to criminally investigate or prosecute any alcohol or drug abuse patient.[facility] SystemIn the event this information is protected by the Federal Confidentiality of Alcohol and Drug Abuse Patient Records regulations: The Federal rules restrict any use of the information to criminally investigate or prosecute any alcohol or drug abuse patient.[facility] SystemIn the event this information is protected by the Federal Confidentiality of Alcohol and Drug Abuse Patient Records regulations: The Federal rules restrict any use of the information to criminally investigate or prosecute any alcohol or drug abuse patient.[facility] SystemIn the event this information is protected by the Federal Confidentiality of Alcohol and Drug Abuse Patient Records regulations: The Federal rules restrict any use of the information to criminally investigate or prosecute any alcohol or drug abuse patient.[facility] SystemIn the event this information is protected by the Federal Confidentiality of Alcohol and Drug Abuse Patient Records regulations: The Federal rules restrict any use of the information to criminally investigate or prosecute any alcohol or drug abuse patient.[facility] SystemIn the event this information is protected by the Federal Confidentiality of Alcohol and Drug Abuse Patient Records regulations: The Federal rules restrict any use of the information to criminally investigate or prosecute any alcohol or drug abuse patient.[facility] SystemIn the event this information is protected by the Federal Confidentiality of Alcohol and Drug Abuse Patient Records regulations: The Federal rules restrict any use of the information to criminally investigate or prosecute any alcohol or drug abuse patient.[facility] FOR RECORDS PERTAINING TO PATIENTS WHO ARE [...] BE BASED ON THE PRIMARY CLINICAL RECORDS. [facility] [employer] [facility]. provides no warranty or guarantee of the accuracy or completeness of information in this document.
--- OUTSIDE RECORDS SUMMARY | 2025-02-10 13:52 | XMS_ITS | Encounter Summary ---
Author Organization [facility] Address [address] [place] [address] Care Team Providers Care Agriculture Science Teacher Name Role Phone Amanda Ford CMM TECHNICIAN Primary Care Provider Encounter Details DateTypeDepartmentCare Team (Latest Contact Info)Smeyqwfwrhm68/24/2025Patient Outreach [facility] [address] [place] [phone] Jojo Be, YANDEL [address], [place] [id number] Social History Tobacco UseTypesPacks/DayYears UsedDateSmoking Tobacco: Every DayCigarettes0.53 Smokeless Tobacco: NeverAlcohol UseStandard Drinks/WeekCommentsNot Currently0 (1 standard drink = 0.6 oz pure alcohol)caffeine: 1-2 cups per day teaPHQ-2Answer Date RecordedPatient Health Questionnaire-2 [id number] Date of CcrrfezgCultviggZal21/06/2026Based on Est. Date of ConceptionSex and Gender InformationValueDate RecordedSex Assigned at ZbgssCnxesu05/04/2023 8:10 PM EDTLegal LrbLhwyrq59/02/2023 9:50 PM EDTGender RahaasmhXvfsoy20/04/2023 8:10 PM EDTSexual OrientationNot on filedocumented as of this encounter Functional Status * Over the past 2 weeks, how often have you been bothered by any of the following problems?QuestionAnswerDate of AssessmentAuthorLittle interest or pleasure in doing thingsNot at all02/08/2025 1:09 PM Jojo Hannon LPN Feeling down, depressed, or hopelessNot at all02/08/2025 1:09 PM Jojo Hannon LPNPatient Health Questionnaire-2 [id number] 1:09 PM Jojo Hannon LPN documented as of this encounter Progress Notes * Jojo Be LPN - 02/08/2025 1:07 PM EDT Initial Outreach. Call to pt. Pt reports she feels baby moving frequently. Appetite and sleep are adequate. Bowels are regular with Colace. Pt denies any current depression or difficulty coping at this time and is medicated with Zoloft and Seroquel. Pt agrees to monthly outreach. Next OB OV 01/19/25. documented in this encounter Plan of Treatment DateTypeDepartmentCare Team (Latest Contact Info)Hiyvewclwhi38/04/2025 1:00 PM ESTRoutine [facility] [address] [place] [address] Les Martinez DO [address] [place] [address] 08/21/2025 9:30 AM EDTOffice Visit [facility] [place] [facility] [address] [place] [phone] Darleen Sinclair MD [address] [place] [address] documented as of this encounter Goals GoalPatient Goal TypeAssociated ProblemsRecent ProgressPatient-Stated?Author Reminders Care PlanOB RemindersNoOpen Scheduling, Backgrounddocumented as of this encounter Visit Diagnoses Not on filedocumented in this encounter Additional Health Concerns Active ProblemsNoted DateDiagnosed DateOB Cxfkgixmr47/07/2025 documented as of this encounter Care Teams Team MemberRelationshipSpecialtyStart DateEnd Date Amanda Ford NP [address] [place] [id number] PCP - GeneralFamily Kivosuzd62/2/23documented as of this encounter
--- OUTSIDE RECORDS SUMMARY | 2025-02-10 13:53 | XMS_ITS | Clinical Summary ---
Author Organization [employer] Address [id number] [address] [place] [address] Care Team Providers Care Operations Vocational Instructor Name Role Phone No Pcp, No Pcp Primary Care Provider Unavailabl e Allergies Active AllergyReactionsCriticalityNoted DateCommentsNsaids (Non-Steroidal Anti- Inflammatory Drug)10/26/2024 Medications MedicationSigDispense QuantityRefillsLast FilledStart DateEnd DateStatus qm965-byzd-wjvlu acid ( 19) 29 mg iron- 1 mg tablet,chewable Chew 1 tablet and swallow in the morning.Active sertraline (ZOLOFT) 25 mg tablet Take 1 tablet (25 mg total) by mouth in the morning.Active docusate sodium (COLACE) 100 mg capsule Take 1 capsule (100 mg total) by mouth in the morning.Active ferrous sulfate 325 (65 FE) MG tablet Take 1 tablet (325 mg total) by mouth in the morning and 1 tablet (325 mg total) in the evening. Take with meals.Active levothyroxine (SYNTHROID, LEVOTHROID) 50 MCG tablet Take 1 tablet (50 mcg total) by mouth in the morning.Active lansoprazole (PREVACID) 30 mg capsule Take 1 capsule (30 mg total) by mouth in the morning.Active QUEtiapine (SEROquel) 25 mg tablet Take 1 tablet (25 mg total) by mouth nightly.Active lamoTRIgine (LaMICtal) 200 mg tablet Take 1 tablet (200 mg total) by mouth in the morning.Active magnesium oxide (MAGOX) 400 mg tablet Indications: headache in second trimesterTake 1 tablet (400 mg total) by mouth in the morning and 1 tablet (400 mg total) before bedtime. 120 tablet 108/20/2025Active Active Problems ProblemNoted DateDiagnosed DatePrevious gastric bypass affecting , hxjvqihcqt37/20/2025Pregnancy headache in second cipfgvcwk18/20/2025 Hypothyroidism affecting in second yzvmisklg46/20/2025ipolar disease during in second wsloaqxgm73/20/2025Estimated Date of Delivery DykjxmzmGdf45/06/2026Based on Other Basis, IUI conception date 07/31/2024 Encounters DateTypeDepartmentCare YjbkAlmulbmsldy97/23/2025Orders Only [facility] 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 Home Paraprofessional - [place] [address] [facility] [address] [place] [phone] Roslyn Griffin RN Hypothyroidism affecting in second trimester (Primary Dx); headache in second trimester; Previous gastric bypass affecting , antepartum; 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 ([facility])02/07/2025Travel 01/04/2025Orders Only Maternal- Medicine at [facility] [address] [place] [phone] Krystyna Dick RN Previous gastric bypass affecting , antepartum (Primary Dx); Hypothyroidism affecting in second trimester; 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 ([facility]); Obesity affecting in second trimester, unspecified obesity type 01/03/2025Telephone Maternal Medicine [place] [address] [facility] [address] [place] [phone] Roslyn Griffin RN 01/03/20256159Rkwjwp86/20/2025 2:00 PM EDTOffice Visit Maternal- Medicine at [facility] [address] [place] [address] Enrike Garcia MD 20 weeks gestation of (Primary Dx); Previous gastric bypass affecting , antepartum; Obesity affecting in second trimester, unspecified obesity type; Hypothyroidism affecting in second trimester; 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 ([facility]); headache in second arvuzvnfh92/20/2025 12:36 PM EDT - 12/05/2024 11:59 PM EDTHospital Encounter [facility] [address] [place] [phone] Screening, , for anatomic survey Discharge Disposition: Home12/05/2024Orders Only Maternal- Medicine at [facility] [address] [place] [phone] Chiquita Shen RN Previous gastric bypass affecting , antepartum (Primary Dx); Hypothyroidism affecting in second trimester; 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 (CMS-HCC); Obesity affecting in second trimester, unspecified obesity type; Encounter for supervision of resulting from assisted reproductive technology, prnridvzfl75/20/1847Qfbejy71/19/2025Telephone Maternal- Medicine at [facility] [address] [place] [place] [phone] Chiquita Shen RN 12/04/2024Orders Only Maternal- Medicine at [facility] [address] [place] [phone] Ref Prov, Not In System 12/04/2024bstract Maternal- Medicine at [facility] [address] [place] [phone] Enrike Garcia MD from Last 3 Months Family History Medical HistoryRelationNameCommentsDiabetesFatherHypertensionFatherThyroid diseaseFatherDiabetesMaternal GrandfatherDepressionMotherObesityMotherSkin cancerMotherThyroid diseaseMotherRelationNameStatusCommentsFatherMaternal GrandfatherMotherPaternal Grandfather Social History Tobacco UseTypesPacks/DayYears UsedDateSmoking Tobacco: FormerCigarettesStarted: 2023Smokeless Tobacco: Never Tobacco Cessation:Counseling Given: Not Answered Alcohol UseStandard Drinks/WeekCommentsNot Currently0 (1 standard drink = 0.6 oz pure alcohol)ChildcareAnswerDate KdmehhjiMrfkjzpifBymkazt33/02/2021mployment AnswerDate NyxcexrvDwaadbltotYknracm95/02/2021Hunger ScreeningAnswerDate RecordedWithin the past 12 months we worried whether our food would run out before we got money to buy more.Never True12/05/2024Within the past 12 months the food we bought just didn't last and we didn't have money to get more.Never True12/05/2024Purpose - LifeAnswerDate RecordedPurpose and direction in life Oytccud5605/20/2020Estimated Date of XazotqokUdadjjblEut95/06/2026ased on Other Basis, IUI conception date 07/31/2024Sex and Gender InformationValueDate RecordedSex Assigned at BirthNot on fileLegal RbuLlqrub29/06/2015 12:10 PM EDT Gender IdentityNot on fileSexual OrientationNot on file Last Filed Vital Signs Vital SignReadingTime TakenCommentsBlood Nygkqpcu05/62012/05/2024 12:46 PM EDT Pmnoe547112/05/2024 12:46 PM EDTTemperature--Respiratory Rate--Oxygen Saturation-- Inhaled Oxygen Concentration--Wwzwpk043.6 kg (257 lb)12/05/2024 12:46 PM EDT Fpxgzn901.3 cm (5' 11 )12/05/2024 12:46 PM EDTBody Mass Index35.8412/05/2024 12:46 PM EDT Plan of Treatment DateTypeDepartmentCare Team (Latest Contact Info)Jivvhnjeefw97/18/2025 11:15 AM ESTAppointment [facility] [address] [place] [phone] Health MaintenanceDue DateLast DoneCommentsDepression Olqkukyxh20/17/2007dult BMI Follow Up Plan2013Pap Smear2016COVID-19 Vaccine ( season)/07/2020, 07/22/2020Influenza Wzjbcwc6212/17/2024dult BMI Qxpxmlobo31Tobacco Cjazshczg06DTaP,Tdap and Td Vaccines (2 - Td or Tdap)/12/2022 Medical Devices Not on file Procedures Procedure NamePriorityDate/TimeAssociated DiagnosisCommentsUS [facility] OB FOLLOW-UP, 1 RDTBEJxctltu77/23/2025 10:49 AM EDT Previous gastric bypass affecting , antepartum Hypothyroidism affecting in second trimester 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 ([facility]) Obesity affecting in second trimester, unspecified obesity type [facility] OB FOLLOW-UP, 1 GNLUQBxhwsxs05/18/2025 3:09 PM EDT Previous gastric bypass affecting , antepartum Hypothyroidism affecting in second trimester 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 (CMS-HCC) Obesity affecting in second trimester, unspecified obesity type Encounter for supervision of resulting from assisted reproductive technology, antepartum [facility] COMPREHENSIVE ANATOMIC DYYLXRWjmywiy84/20/2025 2:42 PM EDT Screening, , for anatomic survey from Last 3 Months Results * [facility] OB FOLLOW-UP, 1 FETUS (02/07/2025 10:49 AM EDT) Only the most recent of3 resultswithin the time period is included. Anatomical RegionLateralityModalityOB-GYNUltrasoundSpecimen (Source)Anatomical Location / LateralityCollection Method / VolumeCollection TimeReceived Time 02/07/2025 10:05 AM EDT Narrative 02/07/2025 1:10 PM EDT NAME: ??MARIA EUGENIA HINDS : 1995 SEX: F Accession Number: [id number] ORDERING PHYSICIAN: ENRIKE GARCIA REFERRING PHYSICIAN: BASIM BIRMINGHAM Coding Procedures ? 57686: Ultrasound, uterus, real time with image documentation, follow up,transabdominal ? approach per fetus Indication Screening for follow-up survey, resulting from assisted reproductive technology- IUI, History of Gastric sleeve, Obesity in . History OB History ? 1. Para 0 ? G3N4W3M5 Current Cell free DNA ?low risk analysis Maternal Assessment Physical Exam ??Height 180 cm, 5 ft 11 in. Weight 127 kg, 281 lb. Initial weight 102 kg, 224 lb. BMI 39.19 kg/m??. Initial ? BMI 31.24 kg/m??. Weight gain 26 kg, 57 lb Method Transabdominal ultrasound examination. View: Suboptimal view: limited by maternal body habitus. Images of optimal diagnostic quality could not be obtained. [place] . Number of fetuses: 1 Dating LMP on: ?07/19/2024 GA by LMP ?29 w + 0 d DARWIN by LMP: ?04/25/2025 Conception on: 07/31/2024 GA by conception ? 29 w + 2 d DARWIN by conception: ? 04/23/2025 Previous Ultrasound on: ?08/28/2024 Type of prior assessment: ?GA GA at prior assessment date ?5 w + 6 d GA by previous U/S ? 29 w + 1 d DARWIN by previous Ultrasound: ?04/24/2025 Ultrasound examination on: ? 02/07/2025 GA by U/S based upon: ??AC, BPD, Femur, HC GA by U/S ?30 w + 6 d DARWIN by U/S: ?04/12/2025 Assigned: ?based on the conception date, selected on 12/05/2024 Assigned GA (weeks days) ? 29 w + 2 d Assigned DARWIN: ??04/23/2025 General Evaluation Cardiac activity Present. FHR 154 bpm. Presentation: cephalic Placenta: Placental site: posterior, previously documented away from cervical os Umbilical cord: Cord vessels: 3 vessel cord. Insertion site: documented previously Amniotic fluid: Amount of AF: normal amount. MVP 6.7 cm Biometry Standard BPD ?77.1 mm 31w 0d 85% Hadlock OFD 102.3 mm 33w 1d >99% Gayle HC ? 285.7 mm ?31w 3d 78% Hadlock Cerebellum tr ??34.6 mm 29w 0d 45% Hill AC ? 269.4 mm ?31w 0d 89% Hadlock Femur ??56.7 mm 29w 5d 49% Hadlock Humerus ?48.9 mm 28w 5d 28% Gayle HC / AC ?1.06 EFW ?1,616 g ??84% Hadlock EFW (lb) ? 3 lb EFW (oz) ? 9 oz EFW by: ?Hadlock (ANG-RG-XF-FL) Extended Tibia ??49.1 mm 29w 3d 59% Gayle Instructional Supervisor ? 5.2 mm CM ? 6.0 mm ?? 25% Nicolaides Head / Face / Neck Cephalic index 0.75 ? 14% Nicolaides Nasal bone: ?present Extremities / Bony Struc FL / BPD ? 0.74 FL / HC ?0.20 FL / AC ?0.21 Other Structures FHR ?154 bpm Anatomy The following structures appear normal: Head/Neck: Cranium. Cavum septi pellucidi. Cerebellum. Cisterna magna. Parenchyma. Vermis. Face: Lips. Profile. Nose. Nasal bone. Heart/Thorax: 4-chamber view. 3-vessel view. 8-knagab-ehphrin view. Situs. Interventricular septum.Cardiac position. ? Cardiac axis. Cardiac size. Cardiac rhythm. ? Diaphragm. Abdomen: Abdom. wall. Stomach. Kidneys. Bladder. Genitals. The following structures could not be adequately visualized: Heart / Thorax RVOT view. LVOT view. Ductal arch view. Great vessels. Extremities/Skeleton: Left foot. Skeleton The following structures could not be examined: Heart / Thorax Bicaval view. The following structures were documented previously: Head / Neck ?Lateral ventricles. Choroid plexus. Midline falx. ? Neck. Nuchal fold. Face ?? Maxilla. Mandible. Orbits. Heart / Thorax Aortic arch view. ? Right lung. Left lung. Abdomen ?Cord insertion. Small bowel. Large bowel. Right renal artery. Left renal artery. Spine: Cervical spine. Thoracic spine. Lumbar spine. Sacral spine. Extremities / ??Right upper arm. Right forearm. Right hand. Left upper arm. Left forearm. Left hand. Right upper leg. ? Right lower leg. Right foot. Left upper leg. Left lower leg. Maternal Structures Uterus Visualized Cervix Suboptimal ? Approach - Transabdominal Right Ovary ?Not visualized Left Ovary ? Not visualized Cul de Sac ? Suboptimal Impression Single live intrauterine . 29w 2d. Normal growth. EFW measures at the 84%, AC measures at the 89%. Amniotic fluid MVP measures 6.7 cm. Recommendations The patient is scheduled in four weeks for follow up growth ultrasound. Subsequent follow up or other follow up as clinically determined by primary OB provider unless otherwise specified by MFM. Results forwarded to ordering provider so they can follow up with the patient as necessary. Procedure Note Enrike Garcia MD - 02/07/2025 NAME: MARIA EUGENIA HINDS : 1995 SEX: F Accession Number: [id number] ORDERING PHYSICIAN: ENRIKE GARCIA REFERRING PHYSICIAN: BASIM BIRMINGHAM Coding Procedures 98766: Ultrasound, uterus, real time with image documentation, follow up, transabdominal approach per fetus Indication Screening for follow-up survey, resulting from assistedreproductive technology- IUI, History of Gastric sleeve, Obesity in . History OB History 1. Para 0 [id number] Current Cell free DNA low risk analysis Maternal Assessment Physical Exam Height 180 cm, 5 ft 11 in. Weight 127 kg, 281 lb. Initialweight 102 kg, 224 lb. BMI 39.19 kg/m??. Initial BMI 31.24 kg/m??. Weight gain 26 kg, 57 lb Method Transabdominal ultrasound examination. View: Suboptimal view: limited bymaternal body habitus. Images of optimal diagnostic quality could not be obtained. [place] . Number of fetuses: 1 Dating LMP on: 07/19/2024 GA by LMP 29 w + 0 d DARWIN by LMP: 04/25/2025 Conception on: 07/31/2024 GA by conception 29 w + 2 d DARWIN by conception: 04/23/2025 Previous Ultrasound on: 08/28/2024 Type of prior assessment: GA GA at prior assessment date 5 w + 6 d GA by previous U/S 29 w + 1 d DARWIN by previous Ultrasound: 04/24/2025 Ultrasound examination on: 02/07/2025 GA by U/S based upon: AC, BPD, Femur, HC GA by U/S 30 w + 6 d DARWIN by U/S: 04/12/2025 Assigned: based on the conception date, selected on 12/05/2024 Assigned GA (weeks days) 29 w + 2 d Assigned DARWIN: 04/23/2025 General Evaluation Cardiac activity Present. FHR 154 bpm. Presentation: cephalic Placenta: Placental site: posterior, previously documented away fromcervical os Umbilical cord: Cord vessels: 3 vessel cord. Insertion site: documented previously Amniotic fluid: Amount of AF: normal amount. MVP 6.7 cm Biometry Standard BPD 77.1 mm 31w 0d 85% Hadlock OFD 102.3 mm 33w 1d >99% Gayle HC 285.7 mm 31w 3d 78% Hadlock Cerebellum tr 34.6 mm 29w 0d 45% Hill AC 269.4 mm 31w 0d 89% Hadlock Femur 56.7 mm 29w 5d 49% Hadlock Humerus 48.9 mm 28w 5d 28% Gayle HC / AC 1.06 EFW 1,616 g 84% Hadlock EFW (lb) 3 lb EFW (oz) 9 oz EFW by: Hadlock (BOA-SA-MM-FL) Extended Tibia 49.1 mm 29w 3d 59% Gayle Instructional Supervisor 5.2 mm CM 6.0 mm 25% Nicolaides Head / Face / Neck Cephalic index 0.75 14% Nicolaides Nasal bone: present Extremities / Bony Struc FL / BPD 0.74 FL / HC 0.20 FL / AC 0.21 Other Structures FHR 154 bpm Anatomy The following structures appear normal: Head/Neck: Cranium. Cavum septi pellucidi. Cerebellum. Cisterna magna. Parenchyma. Vermis. Face: Lips. Profile. Nose. Nasal bone. Heart/Thorax: 4-chamber view. 3-vessel view. 4-xzvjho-qhmnrap view. Situs. Interventricular septum. Cardiac position. Cardiac axis. Cardiac size. Cardiac rhythm. Diaphragm. Abdomen: Abdom. wall. Stomach. Kidneys. Bladder. Genitals. The following structures could not be adequately visualized: Heart / Thorax RVOT view. LVOT view. Ductal arch view. Great vessels. Extremities/Skeleton: Left foot. Skeleton The following structures could not be examined: Heart / Thorax Bicaval view. The following structures were documented previously: Head / Neck Lateral ventricles. Choroid plexus. Midline falx. Neck. Nuchal fold. Face Maxilla. Mandible. Orbits. Heart / Thorax Aortic arch view. Right lung. Left lung. Abdomen Cord insertion. Small bowel. Large bowel. Right renalartery. Left renal artery. Spine: Cervical spine. Thoracic spine. Lumbar spine. Sacral spine. Extremities / Right upper arm. Right forearm. Right hand. Left upper arm.Left forearm. Left hand. Right upper leg. Right lower leg. Right foot. Left upper leg. Left lower leg. Maternal Structures Uterus Visualized Cervix Suboptimal Approach - Transabdominal Right Ovary Not visualized Left Ovary Not visualized Cul de Sac Suboptimal Impression Single live intrauterine . 29w 2d. Normal growth. EFW measures at the 84%, AC measures at the 89%. Amniotic fluid MVP measures 6.7 cm. Recommendations The patient is scheduled in four weeks for follow up growth ultrasound. Subsequent follow up or other follow up as clinically determined byprimary OB provider unless otherwise specified by M. Results forwarded to ordering provider so they can follow up with thepatient as necessary. Authorizing ProviderResult TypeResult StatusEnrike Garcia MDIM US ORDERABLESFinal Result from Last 3 Months Insurance Care Teams Team MemberRelationshipSpecialtyStart DateEnd Date No Pcp, No Pcp LUKE Owens [id number] [facility]
--- OUTSIDE RECORDS SUMMARY | 2025-02-10 13:53 | XMS_ITS | Patient Health Record ---
Author Organization [facility] in [place] Address [address] [place] [address] Care Team Providers Care Concessions Manager Name Role Phone Robin Marquez MD Primary Care Provider Unavail able Reason For Referral No Information Plan Of Treatment No Information
--- OUTSIDE RECORDS SUMMARY | 2025-02-10 13:53 | XMS_ITS ---
Author Organization [facility] Address [address] [place] [address] Care Team Providers Care Lithograph Press Feeder Name Role Phone Amanda Ford CERT PHARMACY TECH Primary Care Provider [facility] ([facility]) Status:Enrolled (Active) Start date:02/01/2025 Enrollment date:02/08/2025 Enrollment reason:Identified by Health Plan NameLarryhoLinda Be LPN(Responsible Staff)Licensed Practical Nurse [phone] Continued Care and Services Coordination
[2025-02-10 13:59] VITALS: BP 125/59; PULSE 75
== END 2025-02-10 14:40 | disposition home or self-care (01) ==
LOC: FBC 13:48
PROVIDERS: Admitting Provider Obstetrics & Gynecology; PCP Nurse Practitioner Family; Visit Provider Obstetrics & Gynecology
DX: O36.8130 Decreased fetal movements, third trimester, not applicable or unspecified (principal); Z3A.29 29 weeks gestation of pregnancy
CPT/HCPCS: 59025; G0378; G0379

== ENCOUNTER 2025-02-19 14:05 | Outpatient (OUT) | payer MEDICAID, SELFPAY ==
--- OUTSIDE RECORDS SUMMARY | 2024-04-25 08:30 | XMS_ITS ---
Author Organization [facility] Address [address] [place] [address] Care Team Providers Care Refrigeration Plant Operator Name Role Phone Jennifer Hahn Primary Care Provider [phone] Julieta Sher [phone] REASON FOR VISIT 3 month f/u Encounters Encounter Location Date Provider Diagnosis [facility] [address] [place] [address] 04/25/2024 Julieta Jefferson Plan Of Treatment No Information Progress Notes * GUZMAN DEL CIDDOB: 5 (29 yo F)Acc No.[id number]:04/25/2024 Behavioral Health Patient: GUZMAN AMES Provider:?Julieta JeffersonDOB:1995???Age:29 Y ???Sex:FemaleDate:04/25/2024Phone:[phone]:[address], [id number]:Jennifer Hahn Subjective: * Chief Complaints: * 3 month f/u * Electronic signature of NELIDA Newell FNP on 02/19/2025 at 01:03 PM EST Sign off status: Pending * Appointment Provider: Adin Jefferson Date: 0 04/25/2024 Generated for Printing/Faxing/eTransmitting on:?02/19/2025 01:03 PM EST
--- OUTSIDE RECORDS SUMMARY | 2024-07-25 05:30 | XMS_ITS ---
Author Organization [facility] Address [address] [place] [address] Care Team Providers Care Upsetter Helper Name Role Phone Jennifer Hahn Primary Care Provider [phone] Julieta Sher [phone] REASON FOR VISIT 3 month f/u Encounters Encounter Location Date Provider Diagnosis [facility] [address] [place] [address] 07/25/2024 Julieta Jefferson Plan Of Treatment No Information Progress Notes * GUZMAN DEL CIDDOB: 5 (29 yo F)Acc No.[id number]:07/25/2024 Behavioral Health Patient: GUZMAN AMES Provider:?Julieta JeffersonDOB:1995???Age:29 Y ???Sex:FemaleDate:07/25/2024Phone:[phone]:[address], [id number]:Jennifer Hahn Subjective: * Chief Complaints: * 3 month f/u * Electronic signature of NELIDA Newell FNP on 02/19/2025 at 01:03 PM EST Sign off status: Pending * Appointment Provider: Adin Jefferson Date: 0 07/25/2024 Generated for Printing/Faxing/eTransmitting on:?02/19/2025 01:03 PM EST
--- OUTSIDE RECORDS SUMMARY | 2025-01-16 10:20 | XMS_ITS | Encounter Summary ---
Author Organization [facility] Address [address] [place] [address] Care Team Providers Care Photo Print Specialist Name Role Phone Amanda Ford [employer] Primary Care Provider Reason for Visit * ReasonCommentsRoutine Visit Encounter Details DateTypeDepartmentCare Team (Latest Contact Info)Ofiyahxqnyw64/01/2025 11:20 AM EDTRoutine [facility] [address] [place] [address] Mima Duenas NP [address] [place] [address] 26 weeks gestation of ([facility]); Second trimester ([facility]); TSH (thyroid-stimulating hormone deficiency) Social History Tobacco UseTypesPacks/DayYears UsedDateSmoking Tobacco: Every DayCigarettes0.53 Smokeless Tobacco: NeverAlcohol UseStandard Drinks/WeekCommentsNot Currently0 (1 standard drink = 0.6 oz pure alcohol)caffeine: 1-2 cups per day teaPHQ-2Answer Date RecordedPatient Health Questionnaire-2 Fdnob146Estimated Date of AzmzuxfoLgqwyzzmSlz08/06/2026Based on Est. Date of ConceptionSex and Gender InformationValueDate RecordedSex Assigned at LbtjrIguxpk59/04/2023 8:10 PM EDTLegal CjmBwuxkp16/02/2023 9:50 PM EDTGender NhqvhcypZmxcvz42/04/2023 8:10 PM EDTSexual OrientationNot on filedocumented as of this encounter Last Filed Vital Signs Vital SignReadingTime TakenCommentsBlood Uxfzuaau918/801 11:34 AM EDT Pulse--Temperature--Respiratory Rate--Oxygen Saturation--Inhaled Oxygen Concentration--Jojiev643 kg (276 lb)01/16/2025 11:34 AM EDTHeight--Body Mass Index38.4905 10:04 AM EDTdocumented in this encounter Functional Status * Over the past 2 weeks, how often have you been bothered by any of the following problems?QuestionAnswerDate of AssessmentAuthorLittle interest or pleasure in doing thingsNot at all02/08/2025 1:09 PM Jojo Hannon LPN Feeling down, depressed, or hopelessNot at all02/08/2025 1:09 PM Jojo Hannon LPNPatient Health Questionnaire-2 Asoyq577 1:09 PM Jojo Hannon LPN documented as [...] nursing note reviewed. Exam conducted with a recreational assistant present. Vitals: Estimated body mass index is 38.49 kg/m?? as calculated from the following: Height as of 08/22/24: 5' 11 . Weight as of this encounter: 276 lb. BP: 122/80 No LMP recorded. Patient is . ASSESSMENT & PLAN ICD-10-CM 1. 26 weeks gestation of ([facility]) Z3A.26 POCT urinalysis dipstick manually resulted 2. Second trimester ([facility]) Z34.92 3. TSH (thyroid-stimulating hormone deficiency) E03.8 [...] Plan of Treatment DateTypeDepartmentCare Team (Latest Contact Info)Xrrcdwhqumd23/19/2025 10:30 AM ESTRoutine [facility] [address] [place] [address] Jojo Ames PA [address] [place] [address] 08/21/2025 9:30 AM EDTOffice Visit [facility] [address] [place] [id number] Darleen Sinclair MD [address] [place] [address] NameTypePriorityAssociated DiagnosesOrder ScheduleTSHLabRoutine TSH (thyroid-stimulating hormone deficiency) Ordered: 01/16/2025documented as of this encounter Goals GoalPatient Goal TypeAssociated ProblemsRecent ProgressPatient-Stated?Author Reminders Care PlanOB RemindersNoOpen Scheduling, Backgrounddocumented as of this encounter Procedures Procedure NamePriorityDate/TimeAssociated DiagnosisCommentsPOCT URINALYSIS PZCVMNQEOnbceyv90/01/2025 11:40 AM EDT 26 weeks gestation of ([facility]) documented in this encounter Results * US [...] Olivo MD Authorizing ProviderResult TypeResult StatusMima Duenas NPIMNORTHERN [facility] US PROCEDURESFinal Result * POCT urinalysis dipstick [...] 26 weeks gestation of ([facility]) Second trimester ([facility] state, incidental TSH (thyroid-stimulating hormone deficiency) Other specified acquired hypothyroidism TSH (thyroid-stimulating hormone deficiency) Other specified acquired hypothyroidism documented in this encounter Additional Health Concerns Active ProblemsNoted DateDiagnosed DateOB Kbvfngdpz64/07/2025 documented as of this encounter Care Teams Team MemberRelationshipSpecialtyStart DateEnd Date Amanda Ford NP [address] [place] [address] PCP - GeneralFamily Iadacrtl21/2/23documented as of this encounter
--- OUTSIDE RECORDS SUMMARY | 2025-02-06 13:30 | XMS_ITS | Encounter Summary ---
Author Organization [facility] Address [address] [place] [address] Care Team Providers Care Bulb Inspector Name Role Phone Logan Amanda Nikole PIPE TESTING TECHNICIAN Primary Care Provider Reason for Visit * ReasonCommentsRoutine Visit Encounter Details DateTypeDepartmentCare Team (Latest Contact Info)Drhausbfitj49/22/2025 2:30 PM EDTRoutine [facility] [address] [place] [address] Jojo Ames PA [address] [facility] [address] [place], [facility] Third trimester ([facility]); 29 weeks gestation of ([facility]) Social History Tobacco UseTypesPacks/DayYears UsedDateSmoking Tobacco: Every DayCigarettes0.53 Smokeless Tobacco: NeverAlcohol UseStandard Drinks/WeekCommentsNot Currently0 (1 standard drink = 0.6 oz pure alcohol)caffeine: 1-2 cups per day teaPHQ-2Answer Date RecordedPatient Health Questionnaire-2 Iucab898Estimated Date of PtsbgjhvTjidbmzrXvb59/06/2026Based on Est. Date of ConceptionSex and Gender InformationValueDate RecordedSex Assigned at KjickZirjwb59/04/2023 8:10 PM EDTLegal VtpGzpzau00/02/2023 9:50 PM EDTGender UoxnnflrRvwijf87/04/2023 8:10 PM EDTSexual OrientationNot on filedocumented as of this encounter Last Filed Vital Signs Vital SignReadingTime TakenCommentsBlood Vfchxpor963/7002/06/2025 2:43 PM EDT Pulse--Temperature--Respiratory Rate--Oxygen Saturation--Inhaled Oxygen Concentration--Dtzarl224 kg (285 lb 1.9 oz)02/06/2025 2:43 PM EDTHeight--Body Mass Index39.77008/22/2024 10:04 AM EDTdocumented in this encounter Progress Notes * MELVI Engle - 02/06/2025 2:30 PM EDT Reason for Appointment: Patient ID: Jaz [...] reviewed. Vitals: Estimated body mass index is 39.77 kg/m?? as calculated from the following: Height as of 08/22/24: 5' 11 . Weight as of this encounter: 285 lb 1.9 oz. BP: 134/70 No LMP recorded. Patient is . Assessment/Plan ICD-10-CM 1. Third trimester ([facility]) Z34.93 2. 29 weeks gestation of ([facility]) Z3A.29 POCT urinalysis dipstick manually resulted Return OB: Patient presents today for a routine obstetrics appointment. Patient is currently 29w2d . Patient states she is doing well but has complaints of being tired due to current . Patient has verbalizes frequent movement. labor precautions was discussed/given and patient was instructed to perform kick counts three times a day. Orders Placed This Encounter Procedures POCT urinalysis dipstick manually resulted Follow Up: Patient is to return to office in 2 week for routine OB appointment. Documented by MELVI Engle on behalf of: MELVI Engle documented in this encounter Plan of Treatment DateTypeDepartmentCare Team (Latest Contact Info)Cfxtkorjxca39/19/2025 10:30 AM ESTRoutine [facility] [address] [place] [address] Jojo Ames PA [address] [place] [address] 08/21/2025 9:30 AM EDTOffice Visit [facility] [place] [facility] [address] [place] [address] Darleen Sinclair MD [address] [place] [address] documented as of this encounter Goals GoalPatient Goal TypeAssociated ProblemsRecent ProgressPatient-Stated?Author Reminders Care PlanOB RemindersNoOpen Scheduling, Backgrounddocumented as of this encounter Procedures Procedure NamePriorityDate/TimeAssociated DiagnosisCommentsPOCT URINALYSIS TXSKDAHKStpgxvq78/22/2025 2:49 PM EDT 29 weeks gestation of ([facility]) documented in this encounter Results * (ABNORMAL) POCT urinalysis dipstick manually resulted (02/06/2025 2:49 PM EDT) ComponentValueRef RangeTest MethodAnalysis TimePerformed AtPathologist SignatureColor, UAYellowClarity, UAClearGlucose, UANegativeNegative - 1999(110) ++++ mg/dLBilirubin, UANegativeNegative - 4(70) +++ mg/dLKetones, UA PositiveNegative - 160(16) ++++ mg/dLSpec Grav, UA1.0101 - 1.03Blood, UA NegativeNegative - 50 Yehuda/mcLpH, UA6.55 - 9Protein, UANegativeNegative - 1999(20) ++++ mg/dLUrobilinogen, UA2.00.2 - 12 mg/dLLeukocytes, UATrace Negative - 500+++ Kourtney/mcLNitrite, UANegativeNegative - PositiveSpecimen (Source)Anatomical Location / LateralityCollection Method / VolumeCollection TimeReceived IneoBxzlx00/22/2025 2:49 PM EDT Narrative Authorizing ProviderResult TypeResult StatusBallad Health TEST ENTER/EDIT ORDERABLESFinal Result documented in this encounter Visit Diagnoses Diagnosis Third trimester ([facility]) state, incidental 29 weeks gestation of ([facility]) documented in this encounter Additional Health Concerns Active ProblemsNoted DateDiagnosed DateOB Fsiuuswip19/07/2025 documented as of this encounter Care Teams Team MemberRelationshipSpecialtyStart DateEnd Date Amanda Ford NP [address] [place] [address] PCP - GeneralFamily Pcqvdzxb53/2/23documented as of this encounter
--- OUTSIDE RECORDS SUMMARY | 2025-02-19 13:00 | XMS_ITS | Encounter Summary ---
Author Organization [facility] Address [address] [place] [address] Care Team Providers Care Network Technology Instructor Name Role Phone Amanda Ford POWER TRANSFORMER REPAIR SUPERVISOR Primary Care Provider Reason for Visit * ReasonCommentsRoutine Visit Encounter Details DateTypeDepartmentCare Team (Latest Contact Info)Pttanaqqwuh41/04/2025 1:00 PM ESTRoutine [facility] [address] [place] [phone] Les Martinez DO [address] [place], [place] [phone] Third trimester ([facility]); 31 weeks gestation of ([facility]); TSH (thyroid-stimulating hormone deficiency); H/O gastric sleeve Social History Tobacco UseTypesPacks/DayYears UsedDateSmoking Tobacco: Every DayCigarettes0.53 Smokeless Tobacco: NeverAlcohol UseStandard Drinks/WeekCommentsNot Currently0 (1 standard drink = 0.6 oz pure alcohol)caffeine: 1-2 cups per day teaPHQ-2Answer Date RecordedPatient Health Questionnaire-2 Scfkr892Estimated Date of WkekxhfnMfxvyeacGcy94/06/2026Based on Est. Date of ConceptionSex and Gender InformationValueDate RecordedSex Assigned at IchcpJpwoam56/04/2023 8:10 PM EDTLegal MlnGwczhv96/05/2022 9:50 PM EDTGender JtootxvwXvechw07/04/2023 8:10 PM EDTSexual OrientationNot on filedocumented as of this encounter Last Filed Vital Signs Vital SignReadingTime TakenCommentsBlood Iwvomxpo476/7602/19/2025 1:26 PM EST Pulse--Temperature--Respiratory Rate--Oxygen Saturation--Inhaled Oxygen Concentration--Uhmxtz442 kg (287 lb)02/19/2025 1:26 PM ESTHeight--Body Mass Index40.03008/22/2024 10:04 AM EDTdocumented in this encounter Plan of Treatment DateTypeDepartmentCare Team (Latest Contact Info)Lhizaihhwof62/19/2025 10:30 AM ESTRoutine [facility] [address] [place] [address] Jojo Ames PA [address] [place] [address] 08/21/2025 9:30 AM EDTOffice Visit [facility] [place] [facility] [address] [place] [address] Darleen Sinclair MD [address] [place] [address] NameTypePriorityAssociated DiagnosesOrder ScheduleUS biophysical profile w non stress testImagingRoutine TSH (thyroid-stimulating hormone deficiency) Expected: 02/19/2025 (Approximate), Expires: 08/19/2025documented as of this encounter Goals GoalPatient Goal TypeAssociated ProblemsRecent ProgressPatient-Stated?Author Reminders Care PlanOB RemindersNoOpen Scheduling, Backgrounddocumented as of this encounter Procedures Procedure NamePriorityDate/TimeAssociated DiagnosisCommentsPOCT URINALYSIS TVJLRHXKIbkwouo29/04/2025 1:26 PM EST Third trimester ([facility]) documented in this encounter Results * POCT [...] this encounter Visit Diagnoses Diagnosis Third trimester ([facility]) state, incidental 31 weeks gestation of ([facility]) TSH (thyroid-stimulating hormone deficiency) Other specified acquired hypothyroidism H/O gastric sleeve documented in this encounter Additional Health Concerns Active ProblemsNoted DateDiagnosed DateOB Lroktvdhe82/07/2025 documented as of this encounter Care Teams Team MemberRelationshipSpecialtyStart DateEnd Date Amanda Ford NP [address] [place] [address] PCP - GeneralFamily Abjfjbtk01/2/23documented as of this encounter
--- OUTSIDE RECORDS SUMMARY | 2025-02-19 14:10 | XMS_ITS | Encounter Summary ---
Author Organization [employer] Address [id number] [address] [place] [address] Care Team Providers Care Entry Level Software Engineer Name Role Phone No Pcp, No Pcp Primary Care Provider Unavailabl e Encounter Details DateTypeDepartmentCare Team (Latest Contact Info)Nhkbxwwcqxy38/23/2025Travel Social History Tobacco UseTypesPacks/DayYears UsedDateSmoking Tobacco: FormerCigarettesStarted: 2023Smokeless Tobacco: NeverAlcohol UseStandard Drinks/WeekCommentsNot Currently 0 (1 standard drink = 0.6 oz pure alcohol)ChildcareAnswerDate RecordedChildcare Igmxmje5905/20/2020mploymentAnswerDate RnellykwJuktwwwczxZwnkxra33/02/2021Hunger ScreeningAnswerDate RecordedWithin the past 12 months we worried whether our food would run out before we got money to buy more.Never True12/05/2024Within the past 12 months the food we bought just didn't last and we didn't have money to get more.Never True12/05/2024Purpose - LifeAnswerDate RecordedPurpose and direction in tszbSdvvlvv40/02/2021Estimated Date of DeliveryCommentsYes 6Based on Other Basis, IUI conception date 07/31/2024Sex and Gender InformationValueDate RecordedSex Assigned at BirthNot on fileLegal SexFemale 11/21/2014 12:10 PM EDTGender IdentityNot on fileSexual OrientationNot on file documented as of this encounter Plan of Treatment DateTypeDepartmentCare Team (Latest Contact Info)Stezzidbmxw61/18/2025 11:15 AM ESTAppointment [facility] [address] [place] [address] documented as of this encounter Visit Diagnoses Not on filedocumented in this encounter Care Teams Team MemberRelationshipSpecialtyStart DateEnd Date [place], [place] [address] PCP - GeneralFamily Medicine05/20/20documented as of this encounter
--- OUTSIDE RECORDS SUMMARY | 2025-02-19 14:10 | XMS_ITS | Encounter Summary ---
Author Organization [facility] Address [address] [place] [address] Care Team Providers Care Database Developer Name Role Phone Amanda Ford PRECONSTRUCTION MANAGER Primary Care Provider Encounter Details DateTypeDepartmentCare Team (Latest Contact Info)Gwvzaacnxij35/28/2025Travel Social History Tobacco UseTypesPacks/DayYears UsedDateSmoking Tobacco: Every DayCigarettes0.53 Smokeless Tobacco: NeverAlcohol UseStandard Drinks/WeekCommentsNot Currently0 (1 standard drink = 0.6 oz pure alcohol)caffeine: 1-2 cups per day teaPHQ-2Answer Date RecordedPatient Health Questionnaire-2 Favuf688Estimated Date of VzjzjapmSpuswrbpTto31/06/2026Based on Est. Date of ConceptionSex and Gender InformationValueDate RecordedSex Assigned at RvfnfHeqiox35/04/2023 8:10 PM EDTLegal DqxRbtstl57/02/2023 9:50 PM EDTGender VlhftgoeKnfcjk05/04/2023 8:10 PM EDTSexual OrientationNot on filedocumented as of this encounter Plan of Treatment DateTypeDepartmentCare Team (Latest Contact Info)Maatnmpaqfv18/19/2025 10:30 AM ESTRoutine [facility] [address] [place] [phone] Jojo Ames PA [address] [place] [address] 08/21/2025 9:30 AM EDTOffice Visit [facility] [place] [facility] [address] [place] [address] Darleen Sinclair MD [address] [place] [address] documented as of this encounter Goals GoalPatient Goal TypeAssociated ProblemsRecent ProgressPatient-Stated?Author Reminders Care PlanOB RemindersNoOpen Scheduling, Backgrounddocumented as of this encounter Visit Diagnoses Not on filedocumented in this encounter Additional Health Concerns Active ProblemsNoted DateDiagnosed DateOB Popscmmao67/07/2025 documented as of this encounter Care Teams Team MemberRelationshipSpecialtyStart DateEnd Date Amanda Ford NP [facility] [facility] [place] [address] PCP - GeneralFamily Haljkgpm00/2/23documented as of this encounter
--- OUTSIDE RECORDS SUMMARY | 2025-02-19 14:10 | XMS_ITS | Clinical Summary ---
Author Organization [facility] Address [address] [place] [address] Care Team Providers Care Medical Collections Name Role Phone Amanda Ford INTEGRITY MANAGER Primary Care Provider Allergies Active AllergyReactionsCriticalityNoted IovsLncudydmMxbyqaEhspzfiNheq91/02/2023 Patient had gastric bypass surgery in April 2020. Other Reaction(s): Instructed not to take NSAIDS by PCP d/t weight loss surgery Medications MedicationSigDispense QuantityRefillsLast FilledStart DateEnd DateStatus docusate [...] 60 capsule 5Active Active Problems ProblemNoted DateDiagnosed JflyFpscqhuogun38/12/2024Estimated Date of IbkmekdlVlewvtefIkx84/06/2026Based on Est. Date of Conception Encounters DateTypeDepartmentCare NbypIhiywqtuvfj55/04/2025 1:00 PM ESTRoutine [facility] [address] [place] [address] Basim Martinez DO Third trimester ([facility]); 31 weeks gestation of ([facility]); TSH (thyroid-stimulating hormone deficiency); H/O gastric nsempx5402/19/2025amboo flowsheet [facility] [address] [place] [place] [address] Basim Martinez DO 02/12/2025bstract [facility] [address] [place] [address] Jojo Be LPN 02/12/20255895Gzcjqi32/24/2025Patient Outreach [facility] [address] [place] [address] Jojo Be LPN 02/08/2025bstract [facility] [address] [place] [address] Sadiq Akeley, MA 02/06/2025 2:30 PM EDTRoutine [facility] [address] [place] [place] [address] Jojo Ames PA Third trimester ([facility]); 29 weeks gestation of ([facility])02/06/2025amboo flowsheet [facility] [address] [place] [address] Jojo Ames PA 01/31/2025bstract [facility] [address] [place] [address] Basim Martinez DO 01/30/2025 2:30 PM EDTAncillary Procedure [facility] [address] [place] [address] TSH (thyroid-stimulating hormone deficiency)01/30/20257045Yoacrc16/06/2025Telephone [facility] [address] [place] [address] Marsha Asif MA 01/16/2025 11:20 AM EDTRoutine [facility] [address] [place] [address] Mima Duenas, INTEGRITY MANAGER 26 weeks gestation of ([facility]); Second trimester ([facility]); TSH (thyroid-stimulating hormone deficiency)01/16/2025amboo flowsheet [facility] [address] [place] [address] Mima Duenas, TY 01/11/2025linisync Result Encounter [facility] External Department Unsolicited Basim Martinez, DO 01/11/2025Telephone [facility] [address] [place] [address] Basim Martinez, DO 01/10/2025Telephone [facility] [address] [place] [address] Jojo Ames PA 01/09/2025linisync Result Encounter [facility] External Department Unsolicited Jojo Ames PA 01/08/2025Telephone [facility] [address] [place] [address] Jojo Ames PA 01/07/2025bstract [facility] [address] [place] [address] Basim Martinez, DO 12/19/2024 10:00 AM EDTRoutine [facility] [address] [place] [address] Jojo Ames PA 22 weeks gestation of ([facility]); Second trimester ([facility]); Thyroid disease ; H/O gastric sleeve; H/O iron deficiency anemia; Diabetes mellitus sqkzltzaq05/03/2025amboo flowsheet [facility] [address] [place] [address] Jojo Ames PA 12/15/2024linisync Result Encounter [facility] External Department Unsolicited Basim Martinez, DO 12/12/20246411Jzlbrm67/20/2025External Result Encounter [facility] [address] [place] [address] Basim Martinez, DO 12/04/2024 8:30 AM EDTAncillary Procedure [facility] [address] [place] [address] Screening, , for anatomic survey ([facility])12/02/2024External Result Encounter NOM[facility] External Department Unsolicited Eduardo Cruz, DO 11/30/2024Telephone [facility] [address] [place] [phone] Lisa Campbell LPN 11/20/2024 8:40 AM EDTRoutine [facility] [address] [place] [address] Basim Martinez, DO Well woman exam with routine gynecological exam; Exposure to STD; Second trimester ([facility]); 18 weeks gestation of ([facility]); Need for maternal serum alpha-protein (MSAFP) screening ([facility]); Screening, , for anatomic survey ([facility]); Thyroid lsauuyn2811/20/2024External Result Encounter [facility]OM[facility] External Department Unsolicited Basim Martinez, DO 11/20/2024linisync Result Encounter NOM[facility] External Department Unsolicited Basim Martinez, DO 11/20/2024amboo flowsheet [facility] [address] [place] [address] [place] [address] Basim Martinez DO from Last 3 Months Immunizations ImmunizationAdministration DatesNext UowDwog2212/25/2022 Family History Medical HistoryRelationNameCommentsDiabetesFatherGreg spearsHypertensionFather Delbert spearsThyroid diseaseFatherGreg spearsObesityMotherMary spearsSkin cancer MotherMary spearsThyroid diseaseMotherMary spearsDiabetesPaternal Grandfather Ayaan FritzRelationNameStatusCommentsFatherGreg spearsAliveMotherMary nunez AlivePaternal GrandfatherLarry FritzSisterAlive Social History Tobacco UseTypesPacks/DayYears UsedDateSmoking Tobacco: Every DayCigarettes0.53 Smokeless Tobacco: Never Tobacco Cessation:Ready to Q uit: Not Asked; Counseling Given: Not Answered Alcohol UseStandard Drinks/WeekCommentsNot Currently0 (1 standard drink = 0.6 oz pure alcohol)caffeine: 1-2 cups per day teaPHQ-2AnswerDate RecordedPatient Health Questionnaire-2 Oflbj665Estimated Date of Delivery LkrsbhkuZed58/06/2026ased on Est. Date of ConceptionSex and Gender Information ValueDate RecordedSex Assigned at QmwcnAskxlw21/04/2023 8:10 PM EDTLegal Sex Rcyrxb8201/17/2023 9:50 PM EDTGender RoffigmrQxqgao34/04/2023 8:10 PM EDTSexual OrientationNot on file Last Filed Vital Signs Vital SignReadingTime TakenCommentsBlood Wtqeordh337/7611 1:26 PM EST Nsfut7223 10:04 AM EDTTemperature--Respiratory Japo584908/22/2024 10:04 AM EDTOxygen Nouqqckhlz03%08/22/2024 10:04 AM EDTInhaled Oxygen Concentration-- Cayvym980 kg (287 lb)02/19/2025 1:26 PM IGHXijkko629.3 cm (5' 11 )08/22/2024 10:04 AM EDTBody Mass Index40.03008/22/2024 10:04 AM EDT Plan of Treatment DateTypeDepartmentCare Team (Latest Contact Info)Izzxhdbzntw21/19/2025 10:30 AM ESTRoutine [facility] [address] [place] [place] [phone] Jojo Ames PA [address] [place] [address] 08/21/2025 9:30 AM EDTOffice Visit [facility] [place] [facility] [address] [place] [address] Darleen Sinclair MD [address] [place] [address] Health MaintenanceDue DateLast DoneCommentsCOVID-19 Vaccine (2024- season) /07/2020, 07/22/2020Influenza Vaccine (#1)2024Pneumococcal Vaccine: Pediatrics (0 to 5 Years) and At-Risk Patients (6 to 64 Years)Aged Out No longer eligible based on patient's age to complete this topic Goals GoalPatient Goal TypeAssociated ProblemsRecent ProgressPatient-Stated?Author Reminders Care PlanOB RemindersNoOpen Scheduling, Background Procedures Procedure NamePriorityDate/TimeAssociated DiagnosisCommentsPOCT URINALYSIS XKPLWOPIFvvurwb39/04/2025 1:26 PM EST Third trimester ([facility]) POCT URINALYSIS AFUHBHSNAfqmhrj88/22/2025 2:49 PM EDT 29 weeks gestation of ([facility]) OB FOLLOW UP TRANSABDOMINAL WSIGFZMMFzuhiit83/15/2025 3:10 PM EDT TSH (thyroid-stimulating hormone deficiency) POCT URINALYSIS TVGFTEYKJlwvfny71/01/2025 11:40 AM EDT 26 weeks gestation of ([facility]) ALL THYROID STIM QEGRZBJSxpmneg76/26/2025 2:48 PM EDT GLUCOSE 1 IUYNIdlimsx20/24/2025 12:00 PM EDT ALL CBC WITH AUTO GNOOCrjuloo33/24/2025 12:00 PM EDT POCT URINALYSIS UXURUJPXPcykmzt44/03/2025 10:11 AM EDT 22 weeks gestation of ([facility]) Second trimester ([facility]) [facility] URINE MICROSCOPIC ZUQLGbtvduh95/30/2025 11:24 PM EDT TBH UA (CLEAN/CATCH) RN ACUTE/MICRO IF IND.Vfnquxb8612/15/2024 11:24 PM EDT US OB 14+ WEEKS ANATOMY SCAN12/05/2024 4:12 PM EDT US OB 14+ WEEKS ANATOMY HDUIHvsyyqi80/19/2025 9:26 AM EDT Screening, , for anatomic survey ([facility]) URINALYSIS IWBDRDMIGR67/17/2025 11:40 PM EDT RECURRENT VAGINITIS (HTRX)Kwkvamy9811/20/2024 10:51 AM EDT AFP, SERUM, OPEN SPINA QCLUYSKshenxr74/05/2025 10:37 AM EDT ALL THYROID STIM DJOGCHPFenwkuz68/05/2025 10:37 AM EDT POCT URINALYSIS HHIGYZOSBqufobr79/05/2025 9:12 AM EDT Second trimester ([facility]) from Last 3 Months Results * POCT urinalysis dipstick manually resulted (02/19/2025 1:26 PM EST) Only the most recent of5 resultswithin the time period is included. ComponentValueRef RangeTest MethodAnalysis TimePerformed AtPathologist Signature Color, UAYellowClarity, UAClearGlucose, UANegativeNegative - 2000(110) ++++ mg/dLBilirubin, UANegativeNegative - 4(70) +++ mg/dLKetones, UANegativeNegative - 160(16) ++++ mg/dLSpec Grav, UA1.0201 - 1.03Blood, UANegativeNegative - 50 Yehuda/mcLpH, UA6.05 - 9Protein, UANegativeNegative - 2000(20) ++++ mg/dL Urobilinogen, UA1.00.2 - 12 mg/dLLeukocytes, UANegativeNegative - 500+++ Kourtney/mcL Nitrite, UANegativeNegative - PositiveSpecimen (Source)Anatomical Location / LateralityCollection Method / VolumeCollection TimeReceived PdnsPyjsm91/04/2025 1:26 PM EST Narrative Authorizing ProviderResult TypeResult StatusCorey Juan DOPOINT OF CARE TEST ENTER/EDIT ORDERABLESFinal Result * [...] Martinez DOCLINISYNCFinal Result Performing OrganizationAddressCity/State/ZIP CodePhone Number [facility] * GLUCOSE 1 HOUR (01/09/2025 12:00 PM EDT)ComponentValueRef RangeTest Method Analysis TimePerformed AtPathologist SignatureGLUCOSE 1 GIGW322<130 mg/dLTBH Specimen (Source)Anatomical Location / LateralityCollection Method / Volume Collection TimeReceived Time01/09/2025 12:00 PM EDT01/09/2025 12:02 PM EDT Narrative [facility] - 01/09/2025 12:55 PM EDT Authorizing ProviderResult TypeResult StatusJojo Ames PAL BLOOD ORDERABLES Final ResultPerforming OrganizationAddressCity/State/ZIP CodePhone Number [facility] * (ABNORMAL) ALL CBC WITH AUTO DIFF (01/09/2025 12:00 PM EDT)ComponentValueRef RangeTest MethodAnalysis TimePerformed AtPathologist SignatureTBH WBC11.8(H) 4.0 - 11.0 10 3/uLTBHTBH RBC4.06(L)4.20 - 5.40 10 6/uLTBHTBH HGB12.012.0 - 16.0 g/dLTBHTBH HCT35.6(L)36.0 - 48.0 %TBHTBH MCV87.781.0 - 99.0 fLTBHTBH MCH 29.626.7 - 34.0 pgTBHTBH MCHC33.729.9 - 35.2 g/dLTBHTBH RDW13.211.0 - 15.0 % TBHTBH EVX930613 - 450 10 3/uLTBHTBH MPV8.7(L)9.5 - 13.5 [...] Narrative [facility] - 01/09/2025 12:31 PM EDT Authorizing ProviderResult TypeResult StatusAmy Kwaku PACLINISYNCFinal Result Performing OrganizationAddressCity/State/ZIP CodePhone Number [facility] * [facility] URINE MICROSCOPIC ONLY (12/15/2024 11:24 PM EDT)ComponentValueRef Range Test MethodAnalysis TimePerformed AtPathologist SignatureTBH WBCNONE SEENNONE SEEN #/HPFTBHTBH RBC0-20 - 2 #/HPFTBHBACTERIA URINENONE SEENNONE SEEN #/HPFTBH MUCUS URINENONE SEENNONE SEENTBHSQUAMOUS EPITHELIAL CELL URINERARENONE/RARE #/LPFTBHCRYSTALS SEEN?None SeenNone Seen #/HPFTBHCAST SEEN?NONE SEENNONE SEEN #/LPFTBHURINE CULTURE INDICATEDNOTBHSpecimen (Source)Anatomical Location / LateralityCollection Method / VolumeCollection TimeReceived Time12/15/2024 11:24 PM EDT12/15/2024 11:40 PM EDT Narrative [facility] - 12/15/2024 11:50 PM EDT Authorizing ProviderResult TypeResult StatusCorey Juan DOCLINISYNCFinal Result Performing OrganizationAddressCity/State/ZIP CodePhone Number [facility] * (ABNORMAL) TBH UA (CLEAN/CATCH) RN ACUTE/MICRO IF IND. (12/15/2024 11:24 PM EDT) ComponentValueRef RangeTest MethodAnalysis TimePerformed AtPathologist SignatureCOLOR URINELT. YELLOWYELLOWTBHCLARITY URINECLEARCLEARTBHSPECIFIC GRAVITY URINE1.0151.005 - 1.025TBHPH URINE5.55.0 - 9.0TBHPROTEIN URINENEGATIVE NEG/TRACE mg/dLTBHGLUCOSE URINE UANEGATIVENEGATIVE mg/dLTBHBILIRUBIN URINE NEGATIVENEGATIVETBHKETONES URINENEGATIVENEGATIVE mg/dLTBHBLOOD URINESMALL(A) NEGATIVETBHNITRITE URINENEGATIVENEGATIVETBHUROBILINOGEN URINE0.20.2 - 1.0 EU/dLTBHLEUKOCYTE ESTERASE URINENEGATIVENEGATIVETBHURINE MICROSCOPIC INDICATED YESTBHSpecimen (Source)Anatomical Location / LateralityCollection Method / VolumeCollection TimeReceived Time12/15/2024 11:24 PM EDT12/15/2024 11:40 PM EDT N[facility]ative [facility] - 12/15/2024 11:50 PM EDT Authorizing ProviderResult TypeResult StatusCorey Juan DOCLINISYNCFinal Result Performing OrganizationAddressCity/State/ZIP CodePhone Number [facility] * US OB 14+ weeks anatomy scan (12/05/2024 4:12 PM EDT) Only the most recent of2 resultswithin the time period is included. Anatomical RegionLateralityModalityBodyUltrasoundSpecimen (Source)Anatomical Location / LateralityCollection Method / VolumeCollection TimeReceived Time 12/05/2024 4:12 PM EDT Narrative 12/05/2024 4:11 PM EDT THIS EXAM WAS PERFORMED AT [facility] NAME: ??MARIA EUGENIA HINDS : 1995 SEX: F Accession Number: [id number] ORDERING PHYSICIAN: ENRIKE LINDQUIST REFERRING PHYSICIAN: BASIM MARTINEZ Coding Procedures ? 67564: Ultrasound, uterus, real time with image documentation, and maternal evaluation ? plus detailed anatomic examination, transabdominal approach;single or first gestation ? 72311: Transvaginal Ultrasound (OB) Indication Screening for Anatomic Survey, Screening for cervical length, resulting from assisted reproductive technology- IUI, History of Gastric sleeve, Obesity in . History OB History ? 1. Para 0 ? C0C1V4J8 Current Cell free DNA ?low risk analysis [...] (oz) ? 14 oz EFW by: ?Hadlock (ECO-JM-AS-FL) Extended Tibia ??27.0 mm 19w 5d 43% Gayle Regulator Mechanic ? 8.2 mm CM ? 4.2 mm [...] Thorax RVOT view. LVOT view. 3-vessel view. 4-wticpv-gfgxmrf view. Bicaval view. Ductal arch view. Great [...] MVP measures 5.2 cm. Recommendations Please see [facility] documentation from today. The patient is scheduled in four to six week(s) to complete anatomic survey. Subsequent follow up or other follow up as clinically determined by primary OB provider unless otherwise specified by [facility]. Results forwarded to ordering provider so they can follow up with the patient as necessary. The copy-to physician of this order is BASIM Herring The ordering physician of this order is ENRIKE Alfaro Procedure Note Radiology, Radiologist, - 12/05/2024 THIS EXAM WAS PERFORMED AT [facility] NAME: MARIA EUGENIA HINDS : 1995 SEX: F Accession Number: [id number] ORDERING PHYSICIAN: ENRIKE LINDQUIST REFERRING PHYSICIAN: BASIM MARTINEZ Coding Procedures 13327: Ultrasound, uterus, real time with image documentation, and maternal evaluation plus detailed anatomic examination, transabdominalapproach;single or first gestation 01755: Transvaginal Ultrasound (OB) Indication Screening for Anatomic Survey, Screening for cervical length, Pregnancyresulting from assisted reproductive technology- IUI, History of Gastric sleeve, Obesity in . History OB History 1. Para 0 C0G1Q9Y2 Current Cell free DNA low risk analysis [...] Hadlock Humerus 32.3 mm 20w 6d 78% Gayel HC / AC 1.08 7% Hadlock EFW 396 g 89% Hadlock EFW (lb) 0 lb EFW (oz) 14 oz EFW by: Hadlock (ZRM-SR-CK-FL) Extended Tibia 27.0 mm 19w 5d 43% Gayle Regulator Mechanic 8.2 mm CM 4.2 mm 24% Nicolaides [...] Thorax RVOT view. LVOT view. 3-vessel view. 9-qpaxis-mbxbbvc view. Bicaval view. Ductal arch view. Great [...] MVP measures 5.2 cm. Recommendations Please see [facility] documentation from today. The patient is scheduled in four to six week(s) to complete anatomicsurvey. Subsequent follow up or other follow up as clinically determined byprimary OB provider unless otherwise specified by [facility]. Results forwarded to ordering provider so they can follow up with thepatient as necessary. The copy-to physician of this order is BASIM Herring The ordering physician of this order is ENRIKE Alfaro Authorizing ProviderResult TypeResult StatusCorey Juan MESA OB US PROCEDURES Final Result * (ABNORMAL) Urinalysis with reflex microscopic (12/02/2024 11:40 PM EDT) ComponentValueRef RangeTest MethodAnalysis TimePerformed AtPathologist SignatureCOLOR,URINELight-EdbuoeJvmnqx64/18/2025 12:00 AM [facility] CtrAPPEARANCE,JOJXXAuvruAdpiz02/18/2025 12:00 AM [facility] CtrSPECIFICY GRAVITY,URINE1.0171.001 - 1.32870 12:00 AM [facility] CtrPH,URINE5.55.0 - 9.008 12:00 AM [facility] CtrLEUKOCYTE ESTERASE,URINENegativeNegative 12/03/2024 12:00 AM [facility] CtrNITRITE,URINENegative Bmmvosoi57/18/2025 12:00 AM [facility] CtrPROTEIN,URINE NegativeNegative mg/dL12/03/2024 12:00 AM [facility]tr GLUCOSE,URINE (UA)NormalNormal mg/dL12/03/2024 12:00 AM [facility] CtrKETONES,SCWXIBluruehkLejvbbho94/18/2025 12:00 AM [facility] CtrUROBILINOGEN,URINENormalNormal mg/dL12/03/2024 12:00 AM [facility] CtrBILIRUBIN,DCGIEEqjsczqwGeaiauch52/18/2025 12:00 AM [facility] CtrOCCULT BLOOD,URINE3+Negative 12/03/2024 12:00 AM [facility] CtrRBC,URINE1-20 - 4 [HPF] 12/03/2024 12:17 AM [facility] CtrWBC,URINE1-20 - 4 [HPF] 12/03/2024 12:17 AM [facility] CtrSQUAMOUS EPITHELIAL CELL,URINE1-20 - 2 [HPF]12/03/2024 12:17 AM [facility] BACTERIA,URINE1+None Seen [HPF]12/03/2024 12:17 AM [facility] CtrHYALINE CASTS,URINENone0 - 8 [LPF]12/03/2024 12:17 AM [facility] CtrMUCUS,URINE1+(AA)[LPF]12/03/2024 12:17 AM [facility] CtrSpecimen (Source)Anatomical Location / Laterality Collection Method / VolumeCollection TimeReceived XhsxWfops11/17/2025 11:40 PM EDT12/02/2024 11:49 PM EDT [facility] - 12/03/2024 12:17 AM EDT Comment c/o urinary symptoms or increased blood pressure Name Collection Type:: Voided Authorizing ProviderResult TypeResult StatusRichard A Visci DOLAB URINE ORDERABLESFinal ResultPerforming OrganizationAddressCity/State/ZIP CodePhone Number [facility] [address] [place] [address], [facility] [address] [place] [address] * RECURRENT VAGINITIS (HTRX) (11/20/2024 10:51 AM EDT)ComponentValueRef Range Test MethodAnalysis TimePerformed AtPathologist SignatureATOPOBIUM VAGINAE0 19.961 - 24.689 ppm11/21/2024 5:57 AM EDTHealthTrackRx at LabPortATOPOBIUM VAGINAENot Hddlfclt78.961 - 24.689 ppm11/21/2024 5:57 AM EDTHealthTrackRx at LabPortBVAB 2,3 (BACTERIAL VAGINOSIS ASSOCIATED BACTERIA 2, 3); MOBILUNCUS SPP 019.961 - 24.689 ppm11/21/2024 5:57 AM EDTHealthTrackRx at LabPortBVAB 2,3 (BACTERIAL VAGINOSIS ASSOCIATED BACTERIA 2, 3); MOBILUNCUS SPPNot Detected 19.961 - 24.689 ppm11/21/2024 5:57 AM EDTHealthTrackRx at LabPortCANDIDA ALBICANS, PARAPSILOSIS, QUWEHEWDIS141.000 - 30.347 ppm11/21/2024 5:57 AM EDT [facility] at LabPortCANDIDA ALBICANS, PARAPSILOSIS, TROPICALISNot Detected 23.000 - 30.347 ppm11/21/2024 5:57 AM EDTHealthTrackRx at LabKosc[facility] HospitalCANDIDA KVWJAENB272.000 - 31.618 ppm11/21/2024 5:57 AM EDTHealthTrackRx at LabPort GLORIA GLABRATANot Rngmqssc11.000 - 31.618 ppm11/21/2024 5:57 AM EDT [facility] LabK[facility] HospitalCANDIDA HEDCKR619.000 - 30.873 ppm11/21/2024 5:57 AM EDTHealthTrackRx at [facility] HealthCANDIDA KRUSEINot Hrgdpvct08.000 - 30.873 ppm 11/21/2024 5:57 AM EDTHealthTrackRx at LabPortCHLAMYDIA TJNYRBAVFBL765.000 - 31.586 ppm11/21/2024 5:57 AM EDTHealthTrackRx at LabPortCHLAMYDIA TRACHOMATIS Not Ckwpbgja53.000 - 31.586 ppm11/21/2024 5:57 AM EDTHealthTrackRx at LabPort GARDNERELLA WIRBITQEB292.961 - 24.689 ppm11/21/2024 5:57 AM EDTHealthTrackRx at [facility] HealthGARDNERELLA VAGINALISNot Tfhqehdf19.961 - 24.689 ppm11/21/2024 5:57 AM EDTHealthTrackRx at [facility] HospitalPortMEGASPHAERA (TYPES 1, 2)019.961 - 24.689 ppm 11/21/2024 5:57 AM EDTHealthTrackRx at LabPortMEGASPHAERA (TYPES 1, 2)Not Tkmhqdsg82.961 - 24.689 ppm11/21/2024 5:57 AM EDTHealthTrackRx at LabPort NEISSERIA EFZIHRCVJQE032.000 - 32.587 ppm11/21/2024 5:57 AM EDTHealthTrackRx at LabKosciusko [facility] HospitalNEISSERIA GONORRHOEAENot Kuqkuyis53.000 - 32.587 ppm11/21/2024 5:57 AM EDTHealthTrackRx at LabPortTRICHOMONAS LEAXMPIYJ943.000 - 31.995 ppm 11/21/2024 5:57 AM EDTHealthTrackRx at LabKosciusko [facility] HospitalTRICHOMONAS VAGINALISNot Pfaokggc87.000 - 31.995 ppm11/21/2024 5:57 AM EDTHealthTrackRx at [facility] MYCOPLASMA BLJQJXPBDV214.961 - 24.689 ppm11/21/2024 5:57 AM EDTHealthTrackRx at LabPortMYCOPLASMA GENITALIUMNot Xcmaictd13.961 - 24.689 ppm11/21/2024 5:57 AM EDTHealthTrackRx at LabPortSpecimen (Source)Anatomical Location / LateralityCollection Method / VolumeCollection TimeReceived TimeTissue 11/20/2024 10:51 AM EDT11/21/2024 1:16 AM EDT Narrative Authorizing ProviderResult TypeResult StatusCorey Juan DOLAB BLOOD ORDERABLES Final ResultPerforming OrganizationAddressCity/State/ZIP CodePhone Number [facility] [address] [address] * AFP, SERUM, OPEN SPINA BIFIDA (11/20/2024 10:37 AM EDT)ComponentValueRef Range Test MethodAnalysis TimePerformed AtPathologist SignatureRESULTSReport.TBHTEST RESULTS:*Screen Negative*.TBHGEST. AGE ON COLLECTION DATE18.0. weeksTBH GESTAT. AGE BASED ONUltrasound.TBHComment: ?18.0 on 11/20/2024 Recalculations are not recommended when gestational dating by LMP and ultrasound are within 10 days. MATERNAL AGE AT EDD30.1. yrTBHRACEOther.IHWYGHOPS541. lbsTBHINSULIN DEP DIABETES No.TBHMULTIPLE GESTATIONNo.TBHAFP VALUE27.6. ng/mLTBHAFP MOM0.87.TBHOSBR RISK 1 AQ95650.TBHINTERPRETATIONComment.TBHComment: Interpretation: Screen Negative This result is screen [...] Customer Services to discuss available options. ??The [employer] recommends amniocentesis be offered to women age 35 and older. COMMENT:Comment.TBHComment: Gisel Gandhi, Ph.D., [facility] Director References: Available Upon Request. Multiples Of Median Cutoffs ?For AFP Elevations [place] ?? 2.5 ? Black ?2.8 IDD ? 2.0 ? Twins ?4.5 ?Abbreviation Definitions IDD - Insulin Dep Diabetes OSBR - Open Spina Bifida Risk For further inquiries contact [facility] at [phone]. This test was developed and its performance characteristics determined by [employer]. It has not been cleared or approved by the Food and Drug Administration. Performed at: ??[facility] - [facility] [address] [place], [place] ??[id number] Inspector Weights And Measures: Lorena Ellis [facility], Phone: ??[phone] Specimen (Source)Anatomical Location / LateralityCollection Method / Volume Collection TimeReceived Time11/20/2024 10:37 AM EDT11/20/2024 10:49 AM EDT Narrative [facility] - 11/22/2024 1:07 AM EDT N N ULTRASOUND [id number] 0 18 N 1 [address] White/ Authorizing ProviderResult TypeResult StatusCorey Juan DOLAB BLOOD ORDERABLES Final ResultPerforming OrganizationAddressCity/State/ZIP CodePhone Number [facility] from Last 3 Months Additional Health Concerns Active ProblemsNoted DateDiagnosed DateOB Dvhnlvnpq22/10/2024 Insurance Care Teams Team MemberRelationshipSpecialtyStart DateEnd Date Amanda Ford NP [address] [place] [address] PCP - GeneralFamily Pocuubqk07/2/23
--- OUTSIDE RECORDS SUMMARY | 2025-02-19 14:10 | XMS_ITS | Encounter Summary ---
Author Organization [facility] Address [address] [place] [address] Care Team Providers Care Vibration Technician Name Role Phone Amanda Ford TAR CHASER Primary Care Provider Encounter Details DateTypeDepartmentCare Team (Latest Contact Info)Alfcvhghbgc49/04/2025Bamboo flowsheet [facility] [address] [place] [phone] Les Martinez DO [address] [facility] [address] Justo Chacko, [facility]11 Social History Tobacco UseTypesPacks/DayYears UsedDateSmoking Tobacco: Every DayCigarettes0.53 Smokeless Tobacco: NeverAlcohol UseStandard Drinks/WeekCommentsNot Currently0 (1 standard drink = 0.6 oz pure alcohol)caffeine: 1-2 cups per day teaPHQ-2Answer Date RecordedPatient Health Questionnaire-2 Svxct540Estimated Date of KgtbiaxaCpdkitbkGrg43/06/2026Based on Est. Date of ConceptionSex and Gender InformationValueDate RecordedSex Assigned at HsnbzSxzisc83/04/2023 8:10 PM EDTLegal TsaVsevdf99/02/2023 9:50 PM EDTGender NltaznzcLdugxb38/04/2023 8:10 PM EDTSexual OrientationNot on filedocumented as of this encounter Plan of Treatment DateTypeDepartmentCare Team (Latest Contact Info)Ltgsbjtrdpt90/19/2025 10:30 AM ESTRoutine [facility] [address] [place] [place] [address] Jojo Ames PA [address] [place] [address] 08/21/2025 9:30 AM EDTOffice Visit [facility] [place] [facility] [address] [place] [address] Darleen Sinclair MD [address] [place] [address] documented as of this encounter Goals GoalPatient Goal TypeAssociated ProblemsRecent ProgressPatient-Stated?Author Reminders Care PlanOB RemindersNoOpen Scheduling, Backgrounddocumented as of this encounter Visit Diagnoses Not on filedocumented in this encounter Additional Health Concerns Active ProblemsNoted DateDiagnosed DateOB Fgtjcvogw84/07/2025 documented as of this encounter Care Teams Team MemberRelationshipSpecialtyStart DateEnd Date Amanda Ford NP [address] [place] [address] PCP - GeneralFamily Msarelij99/2/23documented as of this encounter
--- OUTSIDE RECORDS SUMMARY | 2025-02-19 14:10 | XMS_ITS | Clinical Summary ---
Author Organization [facility] Address [address] [place] [address] Phone Care Team Providers Care Molder Machine Tender Name Role Phone Unavailable Primary Care Provider Unavailabl e Social History Tobacco UseTypesPacks/DayYears UsedDateSmoking Tobacco: Never Assessed CommentsUnknownSex and Gender InformationValueDate RecordedSex Assigned at Not on fileLegal QynErhprc41/26/2024 8:23 AM EDTGender IdentityNot on fileSexual OrientationNot on file Plan of Treatment Health MaintenanceDue DateLast DoneCommentsHIV Qmwtvzyej1995Lipid Panel 1995TSH Level1995MMR Vaccines (1 of 1 - Standard series)1996 Hepatitis C Nqvkuemqb68/17/2013Hepatitis B Vaccines (1 of 3 - 19+ 3-dose series) 2014HPV/Ybqkuk4103/04/2016HPV Vaccines (1 - 3-dose standard series) 2022Influenza Vaccine (#1)5COVID-19 Vaccine (3 - 2024- season) 505/07/2020, 07/22/2020Yearly Adult Ebumqaqc00/07/2023 Cervical Cancer Ixwyskiri20/04/2027Pap Smear/TaP/Tdap/Td Vaccines (2 - Td or Tdap)/12/2022Zoster [...]
--- OUTSIDE RECORDS SUMMARY | 2025-02-19 14:10 | XMS_ITS | Clinical Summary ---
Author Organization [facility] Address [address] [place] [address] Care Team Providers Care Engine Cleaner Name Role Phone Unavailable Primary Care Provider [...] RecordedNational Score (1-100), lower number is lower skay124702/28/2024State Score (1-10), lower number is lower dyjq97604/29/2023 Data from: https://www.neighborhoodatlas.medicine.[facility]/. Last address used for actgsjfrmut029 self spcuxkcrc07/12/2024CommentsYesSex and Gender InformationValueDate RecordedSex Assigned at BirthNot on fileLegal SexFemale 07/13/2023 12:45 PM EDTGender IdentityNot on fileSexual OrientationNot on file Last Filed Vital Signs Vital SignReadingTime TakenCommentsBlood Pressure--Pulse--Temperature-- Respiratory Rate--Oxygen Saturation--Inhaled Oxygen Concentration--Dwjhrn55.3 kg (216 lb 11.4 oz)02/28/2024 2:03 PM JORIdxjpq233.3 cm (5' 11 )02/28/2024 2:03 PM ESTBody Mass Index30.23104/29/2023 2:03 PM EST Plan of Treatment Health MaintenanceDue DateLast DoneCommentsAnxiety Ingxvqkbx71/17/2013Depression Kzkzjcilw35/17/2013Hepatitis B Vaccine (1 of 3 - 19+ 3-dose series)2014 Cervical Cancer Rrqfylwwg34/17/2016HPV Vaccine (1 - 3-dose SCDM series) 2022ovid-19 Vaccine ( - 2024- season)2024Influenza Vaccine (#1) 2024DTaP,Tdap,Td Vaccine (2 - Td or Tdap)/12/2022RSV Vaccine (1 - 1-dose 75+ series)2070HIV WcsizvecqPlvygcvuv07/16/2024Hepatitis C QufgxjzcdLmlvfrmjh95/16/2024 Procedures Procedure NamePriorityDate/TimeAssociated DiagnosisCommentsHIV 1/2 COMBO WITH REFLEX TO VOOKMVWPMJFDBYITvqvbmn73/16/2024 3:21 PM EST Special screening examination for infectious diseases HEPATITIS C ANTIBODY IA WITH FHRHJFFAOZOIPcaqihq22/16/2024 3:21 PM EST Special screening examination for infectious diseases from Last 3 Months or Most Recently Relevant to Health Maintenance Results * HIV 1/2 COMBO WITH REFLEX TO DIFFERENTIATION (04/02/2024 3:21 PM EST)Component ValueRef RangeTest MethodAnalysis TimePerformed AtPathologist SignatureHIV 12 Combo (Ag/Ab)CcqhqvgzevdInwwpugmaep49/17/2024 12:27 PM [facility]HIV-1/2 AB (Confirmatory)04/03/2024 12:27 PM [facility]Comment:Test not indicated.HIV Sjhdznunplimvk34/17/2024 12:27 PM [facility]Comment: No evidence of HIV-1 or HIV-2 infection. Should recent infection be suspected, repeat testing may be considered 2-3 weeks after this draw. [place] Rev. Code 3701.243(E): This information has been [...] Hernandez APRN.CNPLABORATORY Final ResultPerforming OrganizationAddressCity/State/ZIP CodePhone Number [facility] [address] [place] [address], * HEPATITIS C ANTIBODY IA WITH CONFIRMATION (04/02/2024 3:21 PM EST)Component ValueRef RangeTest MethodAnalysis TimePerformed AtPathologist SignatureHep C Antibody BCFgfxyrraCdmkirnf90/17/2024 11:20 AM [facility] LABComment:The result suggests no evidence of active infection with Hepatitis C virus. Should recent infectionbe suspected, repeat testing may be considered 4-6 weeks after this draw.Specimen (Source)Anatomical Location / Laterality Collection Method / VolumeCollection TimeReceived TimeBloodBLOOD SPECIMEN / UnknownVenipuncture / Pedobtn8904/02/2024 3:21 PM EST04/02/2024 3:22 PM EST Narrative Authorizing ProviderResult TypeResult StatusShelly Hernandez APRN.CNPLABORATORY Final ResultPerforming OrganizationAddressCity/State/ZIP CodePhone Number [facility] [address] [facility] [place] [address] [address], from Last 3 Months or Most Recently Relevant to Health Maintenance Insurance
--- OUTSIDE RECORDS SUMMARY | 2025-02-19 14:10 | XMS_ITS | Encounter Summary ---
Author Organization [facility] Address [address] [place] [address] Care Team Providers Care Driving School Instructor Name Role Phone Aamnda Ford ROAD MECHANIC Primary Care Provider Encounter Details DateTypeDepartmentCare Team (Latest Contact Info)Amcfogzkjwg80/24/2025Patient Outreach [facility] [address] [place] [phone] Jojo Be, YANDEL [address] [place], [place] [phone] Social History Tobacco UseTypesPacks/DayYears UsedDateSmoking Tobacco: Every DayCigarettes0.53 Smokeless Tobacco: NeverAlcohol UseStandard Drinks/WeekCommentsNot Currently0 (1 standard drink = 0.6 oz pure alcohol)caffeine: 1-2 cups per day teaPHQ-2Answer Date RecordedPatient Health Questionnaire-2 Zbqum275Estimated Date of AwhoophdCsdtvwurMnn80/06/2026Based on Est. Date of ConceptionSex and Gender InformationValueDate RecordedSex Assigned at FgkhnMqkryu69/04/2023 8:10 PM EDTLegal ZxvQdbsar83/02/2023 9:50 PM EDTGender TosamnkkFpjdgs94/04/2023 8:10 PM EDTSexual OrientationNot on filedocumented as of this encounter Functional Status * Over the past 2 weeks, how often have you been bothered by any of the following problems?QuestionAnswerDate of AssessmentAuthorLittle interest or pleasure in doing thingsNot at all02/08/2025 1:09 PM Jojo Hannon LPN Feeling down, depressed, or hopelessNot at all02/08/2025 1:09 PM Jojo Hannon LPNPatient Health Questionnaire-2 Nfsqm356 1:09 PM Jojo Hannon LPN documented as of this encounter Progress Notes * Jojo Be LPN - 02/08/2025 1:07 PM EDT Images from the original note were not included. Initial Outreach. Call to pt. Pt reports she feels baby moving frequently. Appetite and sleep are adequate. Bowels are regular with Colace. Pt denies any current depression or difficulty coping at this time and is medicated with Zoloft and Seroquel. Pt agrees to monthly outreach. Next OB OV 01/19/25. <February 12, 2025, 16:01 - Jaz Cain RN> Chart and care plan reviewed 02/08/2025 Jaz Sanders 1995 [address] [facility] [address] Problem: ANTEPARTUM Goal: Maintain balanced nutrition and healthy weight Intervention: Refer to dietitian Intervention: Instruct on ways to overcome morning sickness. (Annabelle, avoiding triggers such as smells, eating smaller meals and drinking plenty of fluids) Intervention: Monitor weight/nutrition (s/s of malnutrition include fatigue, low weight, dizziness, HBP, hair loss, dry skin, dental problems) Intervention: Administer dietary supplements as prescribed. (Folic acid, iron, calcium, Vit D, Choline, [place]-3 fatty acids, B vitamins, Vitamin C) , Problem: ANTEPARTUM Goal: Prevent Constipation Intervention: Begin a stool softener or laxative to prevent constipation Intervention: Eat high-fiber foods and drink plenty of water , Problem: ANTEPARTUM Goal: Assess the patient???s knowledge and preparedness for childbirth. Intervention: ENCOURAGE THE PATIENT TO EXPRESS FEARS AND FEELINGS ABOUT AND CHILDBIRTH Intervention: EDUCATE ON SIGNS OF LABOR Intervention: DEVLOP AN INFANT FEEDING PLAN (INTENDED METHOD OF FEEDING-BREAST VS. BOTTLE, ETC) Intervention: MONITOR THE PRESENCE OF MOVEMENTS Intervention: Develop a plan Intervention: Ensure all necessary items are able to be obtained by date of delivery (crib, diapers, car seat, bottles, etc.) Intervention: Ensure a assistant farm operations manager has been selected for the , Problem: Goal: Pain Control Intervention: Educate on the non-narcotic analgesics such as sitting on a donut pillow, warm sitz bath, ice packs or chilled sanitary pads on the perineum, acetaminophen or iburpofen to reduce inflammation Intervention: Soak the perineum and anal area in a sitz bath several times per day , Problem: Goal: Prevent Constipation Intervention: Begin a stool softener or laxative to prevent constipation Intervention: Eat high-fiber foods and drink plenty of water , Problem: Goal: Recognize changes in mood and emotions Intervention: Identify the range of emotions such as mood swings, anxiety, insomnia, lack of apetite, lack of lilian in life, withdrawal from and crying spells. Intervention: Screen for depression/anxiety using the PHQ2/9 , Problem: Goal: Vaginal Discharge Intervention: Can expect lochia rubra (dark red in color lasting 4 days), lochia serosa (pink discharge lasting up to 10 days), and lochia alba (white/yellow discharge lasting up to 2 weeks). Intervention: During the first 24 hours after childbirth, blood flow may be heavy but should not soak more than one maternity pad every few hours. , Problem: Goal: Promote Intervention: Refer to consultatant or nurse to educate the mother on how to support the and position herself comfortably during , Problem: Goal: Check Up Intervention: The first checkup should occur within several weeks after delivery and mayinclude several visits to monitor the mother???s mood, discuss contraception plans, and ensure healing from childbirth. , Problem: Goal: Primary care for Intervention: Discuss the importance of care, including well child care lead teacher and immunization schedules, and ensure the patient is connected to a well child care lead teacher provider. Intervention: Establishment of feeding pattern Intervention: Appropriate maternal- bonding , and Problem: Goal: Promotion of and bonding Intervention: CONSULT A PROJECT MANAGEMENT CONSULTANT OR NURSE TO EDUCATE THE MOTHER ON HOW TO SUPPORT THE INFANT AND POSITION HERSELF COMFORTABLY DURING Intervention: Educate on methods to reduce breast engorgement and prevent cracked nipples and breast discomfort. documented in this encounter Plan of Treatment DateTypeDepartmentCare Team (Latest Contact Info)Zbrkodjjaov91/19/2025 10:30 AM ESTRoutine [facility] [address] [place] [address] Jojo Ames PA [address] [facility] [place] [address] 08/21/2025 9:30 AM EDTOffice Visit [facility] [place] [facility] [address] [place] [address] Darleen Sinclair MD [address] [place] [address] documented as of this encounter Goals GoalPatient Goal TypeAssociated ProblemsRecent ProgressPatient-Stated?Author Reminders Care PlanOB RemindersNoOpen Scheduling, Backgrounddocumented as of this encounter Visit Diagnoses Not on filedocumented in this encounter Additional Health Concerns Active ProblemsNoted DateDiagnosed DateOB Qxxlowynt05/07/2025 documented as of this encounter Care Teams Team MemberRelationshipSpecialtyStart DateEnd Date Amanda Ford NP [address] [place] [address] PCP - GeneralFamily Hnmjlkvi17/2/23documented as of this encounter
--- OUTSIDE RECORDS SUMMARY | 2025-02-19 14:10 | XMS_ITS | Encounter Summary ---
Author Organization [facility] Address [address] [place] [address] Care Team Providers Care Telephonic Nurse Name Role Phone Amanda Ford LEVEL VIAL INSPECTOR Primary Care Provider Encounter Details DateTypeDepartmentCare Team (Latest Contact Info)Dihitejhbgk65/22/2025amboo flowsheet GUDELIA HERNANDEZ [address] [place] [place] [phone] Jojo Ames PA [address] [place], [facility]11 Social History Tobacco UseTypesPacks/DayYears UsedDateSmoking Tobacco: Every DayCigarettes0.53 Smokeless Tobacco: NeverAlcohol UseStandard Drinks/WeekCommentsNot Currently0 (1 standard drink = 0.6 oz pure alcohol)caffeine: 1-2 cups per day tea Estimated Date of NaavyzbvYgyfqmeaQyt84/06/2026Based on Est. Date of Conception Sex and Gender InformationValueDate RecordedSex Assigned at BirthFemale 01/19/2023 8:10 PM EDTLegal EskNbnask58/02/2023 9:50 PM EDTGender IdentityFemale 01/19/2023 8:10 PM EDTSexual OrientationNot on filedocumented as of this encounter Plan of Treatment DateTypeDepartmentCare Team (Latest Contact Info)Iphrkrhzttg92/19/2025 10:30 AM ESTRoutine [facility] [address] [place] [place] [address] Jojo Ames PA [address] [place] [address] 08/21/2025 9:30 AM EDTOffice Visit [facility] [place] [facility] [address] [place] [address] Darleen Sinclair MD [address] [place] [address] documented as of this encounter Goals GoalPatient Goal TypeAssociated ProblemsRecent ProgressPatient-Stated?Author Reminders Care PlanOB RemindersNoOpen Scheduling, Backgrounddocumented as of this encounter Visit Diagnoses Not on filedocumented in this encounter Additional Health Concerns Active ProblemsNoted DateDiagnosed DateOB Hmfojxngt87/07/2025 documented as of this encounter Care Teams Team MemberRelationshipSpecialtyStart DateEnd Date Amanda Ford NP [address] [facility] [place] [address] [place] [address] PCP - GeneralFamily Mlwdcbno12/2/23documented as of this encounter
--- OUTSIDE RECORDS SUMMARY | 2025-02-19 14:10 | XMS_ITS | Patient Health Record ---
Author Organization [facility] Address [address] [place] [address] Care Team Providers Care Rn Integrity Name Role Phone Jovani Jennifer Primary Care Provider Julieta Jefferson Unavailable [phone] Allergies No Known Allergies Reason For Referral [...] MG Capsule1 capsule with food Orally at rybasdm160- 200 caloriesNot-Taking/PRNQUEtiapine Fumarate 25 MG Tablet1 tablet [...] a drink containing alcohol in the past year?EmKonwjb5DfknxeerfnasstBxemtqbf Problems Problem Type SNOMED Code ICD Code Onset Dates Problem Status W/U Status Risk Notes Problem 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 (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) ActiveconfirmedProblemAnxiety state (620192553)Anxiety state, unspecified (F41.1)ActiveconfirmedProblemLong-term current use of drug therapy (820934384) High risk medications (not anticoagulants) long-term use (Z79.899)Active confirmedProblemBipolar affective disorder, currently manic, mild (005271278) Bipolar disorder, current episode manic without psychotic features, mild (F31.11)Activeconfirmed Vital Signs Heart Rate 84 /min 10/24/2024 Laddgxzc02 %10/24/2024lood pressure bicvqtsom29 mm Hg10/24/20242324Jklihe53 in 10/24/2024lood pressure gjezmgtq257 mm Hg10/24/20247400Leqpxl897.2 lbs10/24/2024MI 30.43 kg/m210/24/2024 Encounters Encounter Location Date Provider Diagnosis [facility] [address] [place] [address] 02/24/2024 [facility] [place] [address]/Mary PetersBipolar disorder, current episode manic without psychotic features, mild F31.11 and Anxiety state, unspecified F41.[address] [place] [place] [place] [address]/09/2024Mary PetersBipolar disorder, current episode manic without psychotic features, mild F31.11[facility] [place] [address]/Mary PetersBipolar disorder, current episode manic without psychotic features, mild F31.11[facility] [address] [place] [address]/11/2024Mary PetersBipolar disorder, current episode manic without psychotic features, mild F31.11 and Anxiety state, unspecified F41.[address] [place], [place] [address] [place] [address] 08/24/2024hristy CoxBipolar disorder, current episode manic without psychotic features, mild F31.11 and Anxiety state, unspecified F41.[address] [place], [place] [address] [place] [address]/5Christy CoxBipolar disorder, current episode manic without psychotic features, mild F31.11[facility] [place] [address]/5Christy CoxBipolar disorder, current episode manic without psychotic features, [...] - F31.11) cont current treatment transfer to [facility] . . Informed consent obtained: YES, we [...] Insured Coverage Start Date Coverage End Date [facility] [address] [place] [address] [id number] Aysha DEL CID - patient is the sfbpsxf4105/19/2022 [facility] [address] [place] [id number], HEATHERSelf - patient is the bikpaim5905/19/2022[facility] [address] [place] [id number], HEATHERSelf - patient is the lksbbzv59[facility] [employer]-termed 05/18/22[address] [place] [id number], HEATHERSelf - patient is the lninadr13/z MEDICAID [facility] after [employer]- termed 05/18/22[address] [place] [id number] DEL CID, HEATHERSelf - patient is the qeeeeqv96/ Medical (General) History Medical History History ICD Code obesity bipolarhypothyroidSurgical History Surgery Date(Month/Year) cholecystectomy gastric XQSMJA45/2021
--- OUTSIDE RECORDS SUMMARY | 2025-02-19 14:10 | XMS_ITS | Encounter Summary ---
Author Organization [facility] [employer] [facility] tem Address [id number] [address] [place] [address] Care Team Providers Care Vulcanizer Rubber Plate Name Role Phone No Pcp, No Pcp Primary Care Provider Unavailabl e Reason for Referral * Diagnostic Imaging (Routine) - Pending ReviewSpecialtyDiagnoses / Procedures Referred By ContactReferred To ContactMaternal and Medicine Diagnoses Hypothyroidism affecting in second trimester headache in second trimester Previous gastric bypass affecting , antepartum 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 ([facility]) Procedures US [facility] with or without consult Les Martinez DO [address] [place] [address] [place] [address] Phone: tel: fax: Maternal- Medicine at [facility] [address] [place] [address] Phone: tel: fax: Referral IDStatusReasonStart DateExpiration DateVisits RequestedVisits [id number] Encounter Details DateTypeDepartmentCare Team (Latest Contact Info)Kdcrobybbtu37/23/2025Orders Only [facility] 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 Principal Administrative Clerk - [place] [address] [facility] [address] [place] [address] Roslyn Griffin RN Hypothyroidism affecting in second trimester (Primary Dx); headache in second trimester; Previous gastric bypass affecting , antepartum; 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 ([facility]) Social History Tobacco UseTypesPacks/DayYears UsedDateSmoking Tobacco: FormerCigarettesStarted: 2023Smokeless Tobacco: NeverAlcohol UseStandard Drinks/WeekCommentsNot Currently 0 (1 standard drink = 0.6 oz pure alcohol)ChildcareAnswerDate RecordedChildcare Mfhxvqg0905/20/2020mploymentAnswerDate HbhucxjlZqljniebmkWpomvkr24/02/2021Hunger ScreeningAnswerDate RecordedWithin the past 12 months we worried whether our food would run out before we got money to buy more.Never True12/05/2024Within the past 12 months the food we bought just didn't last and we didn't have money to get more.Never True12/05/2024Purpose - LifeAnswerDate RecordedPurpose and direction in jrdcKojqqij30/02/2021Estimated Date of DeliveryCommentsYes 6Based on Other Basis, IUI conception date 07/31/2024Sex and Gender InformationValueDate RecordedSex Assigned at BirthNot on fileLegal SexFemale 11/21/2014 12:10 PM EDTGender IdentityNot on fileSexual OrientationNot on file documented as of this encounter Plan of Treatment DateTypeDepartmentCare Team (Latest Contact Info)Jypiqfrulot71/18/2025 11:15 AM ESTAppointment [facility] [address] [place] [address] NameTypePriorityAssociated DiagnosesOrder ScheduleUS MFM with or without consult ImagingRoutine Hypothyroidism affecting in second trimester headache in second trimester Previous gastric bypass affecting , antepartum 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 ([facility]) Expected: 02/07/2025, Expires: 02/07/2026documented as of this encounter Visit Diagnoses Diagnosis Hypothyroidism affecting in second trimester- Primary headache in second trimester Previous gastric bypass affecting , antepartum 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 ([facility]) documented in this encounter Care Teams Team MemberRelationshipSpecialtyStart DateEnd Date No Pcp, [place] [address] PCP - GeneralFasaint [facility] Medicine05/20/20documented as of this encounter
--- OUTSIDE RECORDS SUMMARY | 2025-02-19 14:10 | XMS_ITS | Clinical Summary ---
Author Organization [facility] Address [address], [address] [place] [address] Care Team Providers Care Food Consultant Name Role Phone Robin Marquez MD Primary Care Provider Allergies No known active allergies Medications MedicationSigDispense QuantityRefillsLast FilledStart DateEnd DateStatus levothyroxine (SYNTHROID) 175 MCG tablet TAKE 2 TABLETS BY MOUTH ONCE PZNMJ376Active ALPRAZolam (XANAX) 0.5 MG tablet TAKE 1 [...] ProblemNoted DateDiagnosed DateRight upper quadrant abdominal pain03/30/2021 Qndwyvjbdqu96/13/2021Orthostatic wnmzbpazw93/13/2021Obesity (BMI 30-39.9) 02/09/2021Obesity, Class III, BMI 40-49.9 (morbid obesity)11/10/2020hronic low back pain11/10/2020tatus post laparoscopic sleeve reiqzmfxqjl45/19/2021Vitamin D kuqhvegiws19/27/5075Jgfcesxkxvzbus96/20/2019Bipolar disease, afuepqu4612/05/2018 Plantar fasciitis, wwitygapd17/20/2019Marijuana use12/05/2018 Resolved Problems ProblemNoted DateDiagnosed DateResolved DateMorbid obesity with BMI of 50.0- 59.9, adultMorbid obesity with BMI of 60.0-69.9, adult Family History Medical HistoryRelationNameCommentsHigh Blood PressureFatherOtherMotherOther SisterRelationNameStatusCommentsFatherAlivethyroidMotherAlivethyroidSisterOther thyroid Social History Tobacco UseTypesPacks/DayYears UsedDateSmoking Tobacco: NeverSmokeless Tobacco: NeverAlcohol UseStandard Drinks/WeekCommentsNo0 (1 standard drink = 0.6 oz pure alcohol)CommentsNoSex and Gender InformationValueDate RecordedSex Assigned at BirthNot on fileLegal ZthSzhojj01/26/2015 7:37 PM ESTGender Identity Not on fileSexual OrientationNot on file Last Filed Vital Signs Vital SignReadingTime TakenCommentsBlood Rxmmteya024/6001/ 2:44 PM EST Spbka2403/27/2022 2:44 PM EBRZkyuyoucqfc38.7 ??C (98.1 ??F)03/30/2021 5:10 PM ESTRespiratory Rjhn1116 5:10 PM ESTOxygen Qoxfoqdpqy40%03/30/2021 5:10 PM ESTInhaled Oxygen Concentration--Jewybd49 kg (205 lb)09/04/2021 9:27 AM EDT Pfjmxc121.9 cm (6')09/04/2021 9:27 AM EDTBody Mass Index27.8009/04/2021 9:27 AM EDT Plan of Treatment Not on file Insurance Advance Directives * Full Code (Latest Code Status on File) Date ActivatedDate InactivatedComments05/06/2020 4:42 PM05/08/2020 3:13 PM Care Teams Team MemberRelationshipSpecialtyStart DateEnd Date Robin Marquez MD [address] [phone] PCP - GeneralFamily Medicine10/10/18
--- OUTSIDE RECORDS SUMMARY | 2025-02-19 14:10 | XMS_ITS | Patient Health Record ---
Author Organization [facility] [place] Address [address] [place] [address] Care Team Providers Care Utility Spray Operator Name Role Phone Robin Marquez MD Primary Care Provider Unavail able Reason For Referral No Information Plan Of Treatment No Information
--- OUTSIDE RECORDS SUMMARY | 2025-02-19 14:10 | XMS_ITS | Encounter Summary ---
Author Organization [facility] Address [address] [place] [address] Care Team Providers Care Cambering Machine Operator Name Role Phone Amanda Ford GAME FARM HELPER Primary Care Provider Encounter Details DateTypeDepartmentCare Team (Latest Contact Info)Fedaosnixxi72/24/2025bstract [facility] [address] [place] [address] [place] [phone] Kerrie Babcock MA Social History Tobacco UseTypesPacks/DayYears UsedDateSmoking Tobacco: Every DayCigarettes0.53 Smokeless Tobacco: NeverAlcohol UseStandard Drinks/WeekCommentsNot Currently0 (1 standard drink = 0.6 oz pure alcohol)caffeine: 1-2 cups per day teaPHQ-2Answer Date RecordedPatient Health Questionnaire-2 Ishca025Estimated Date of ZapzsiuwBiyxedueWgv94/06/2026ased on Est. Date of ConceptionSex and Gender InformationValueDate RecordedSex Assigned at CgrqcLzdenn78/04/2023 8:10 PM EDTLegal IhrAcywtp51/02/2023 9:50 PM EDTGender AwjekltzQypkeg81/04/2023 8:10 PM EDTSexual OrientationNot on filedocumented as of this encounter Functional Status * Over the past 2 weeks, how often have you been bothered by any of the following problems?QuestionAnswerDate of AssessmentAuthorLittle interest or pleasure in doing thingsNot at all02/08/2025 1:09 PM Jojo Hannon, SUPERINTENDENT COMMUNICATIONS Feeling down, depressed, or hopelessNot at all02/08/2025 1:09 PM Jojo Hannon LPNPatient Health Questionnaire-2 Wkrzv019 1:09 PM Jojo Hannon LPN documented as of this encounter Plan of Treatment DateTypeDepartmentCare Team (Latest Contact Info)Enpjalnzdmn41/19/2025 10:30 AM ESTRoutine [facility] [address] [place] [address] Jojo Ames PA [address] [place], [place] [id number] 08/21/2025 9:30 AM EDTOffice Visit [facility] [place] [facility] [address] [place] [address] Darleen Sinclair MD [address] [place] [address] documented as of this encounter Goals GoalPatient Goal TypeAssociated ProblemsRecent ProgressPatient-Stated?Author Reminders Care PlanOB RemindersNoOpen Scheduling, Backgrounddocumented as of this encounter Visit Diagnoses Not on filedocumented in this encounter Additional Health Concerns Active ProblemsNoted DateDiagnosed DateOB Xnayhnbjh77/07/2025 documented as of this encounter Care Teams Team MemberRelationshipSpecialtyStart DateEnd Date Amanda Ford NP [address] [facility] [place] [address] [place] [address] PCP - GeneralFamily Mdhgxzob34/2/23documented as of this encounter
--- OUTSIDE RECORDS SUMMARY | 2025-02-19 14:10 | XMS_ITS | Clinical Summary ---
Author Organization [facility] Address [id number] [address] [place] [address] Care Team Providers Care Bolt Man Name Role Phone No Pcp, No Pcp Primary Care Provider Unavailabl e Allergies Active AllergyReactionsCriticalityNoted DateCommentsNsaids (Non-Steroidal Anti- Inflammatory Drug)10/26/2024 Medications MedicationSigDispense QuantityRefillsLast FilledStart DateEnd DateStatus vj330-fnpm-yttqe acid ( 19) 29 mg iron- 1 [...] ProblemNoted DateDiagnosed DatePrevious gastric bypass affecting , phxwcucjsi98/20/2025Pregnancy headache in second hswpifwwv95/20/2025 Hypothyroidism affecting in second kyzkudslb22/20/2025ipolar disease during in second /20/2025Estimated Date of Delivery BswmfisuBol28/06/2026Based on Other Basis, IUI conception date 07/31/2024 Encounters DateTypeDepartmentCare QefzHoduowbygeb81/23/2025Orders Only [facility] 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 Tilting Saw Operator - [place] [address] [place] [phone] Roslyn Griffin RN Hypothyroidism affecting in second trimester (Primary Dx); headache in second trimester; Previous gastric bypass affecting , antepartum; 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 ([facility])02/07/2025Travel 01/04/2025Orders Only [facility] [address] [place] [phone] Krystyna Dick RN Previous gastric bypass affecting , antepartum (Primary Dx); Hypothyroidism affecting in second trimester; 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 ([facility]); Obesity affecting in second trimester, unspecified obesity type 01/03/2025Telephone Maternal Medicine [place] [address] [facility] [address] [place] [phone] Roslyn Griffin RN 01/03/20258944Zuafnn00/20/2025 2:00 PM EDTOffice Visit [facility] [address] [place] [address] Enrike Garcia MD 20 weeks gestation of (Primary Dx); Previous gastric bypass affecting , antepartum; Obesity affecting in second trimester, unspecified obesity type; Hypothyroidism affecting in second trimester; 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 ([facility]); headache in second iphmqosvd67/20/2025 12:36 PM EDT - 12/05/2024 11:59 PM EDTHospital Encounter [facility] [address] [place] [phone] Screening, , for anatomic survey Discharge Disposition: Home12/05/2024Orders Only [facility] [address] [facility] [place] [phone] Chiquita Shen RN Previous gastric bypass affecting , antepartum (Primary Dx); Hypothyroidism affecting in second trimester; 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 (CMS-HCC); Obesity affecting in second trimester, unspecified obesity type; Encounter for supervision of resulting from assisted reproductive technology, mglfynvinj50/20/0246Wqsatl64/19/2025Telephone [facility] [address] [place] [address] Chiquita Shen RN 12/04/2024Orders Only [facility] [address] [place] [phone] Ref Prov, Not In System 12/04/2024bstract [facility] [address] [place] [phone] Enrike Garcia MD from Last 3 Months Family History Medical HistoryRelationNameCommentsDiabetesFatherHypertensionFatherThyroid diseaseFatherDiabetesMaternal GrandfatherDepressionMotherObesityMotherSkin cancerMotherThyroid diseaseMotherRelationNameStatusCommentsFatherMaternal GrandfatherMotherPaternal Grandfather Social History Tobacco UseTypesPacks/DayYears UsedDateSmoking Tobacco: FormerCigarettesStarted: 2023Smokeless Tobacco: Never Tobacco Cessation:Counseling Given: Not Answered Alcohol UseStandard Drinks/WeekCommentsNot Currently0 (1 standard drink = 0.6 oz pure alcohol)ChildcareAnswerDate XujwvhzrTnrfbiqmcDfrowqz86/02/2021mployment AnswerDate DpciqisrRbqkikpimoSymqfzl15/02/2021Hunger ScreeningAnswerDate RecordedWithin the past 12 months we worried whether our food would run out before we got money to buy more.Never True12/05/2024Within the past 12 months the food we bought just didn't last and we didn't have money to get more.Never True12/05/2024Purpose - LifeAnswerDate RecordedPurpose and direction in life Jvhxtfk2105/20/2020Estimated Date of KtpdqtgjLhccmyiuXxy44/06/2026ased on Other Basis, IUI conception date 07/31/2024Sex and Gender InformationValueDate RecordedSex Assigned at BirthNot on fileLegal JkpIxosgc45/06/2015 12:10 PM EDT Gender IdentityNot on fileSexual OrientationNot on file Last Filed Vital Signs Vital SignReadingTime TakenCommentsBlood Zxyzfszz10/62012/05/2024 12:46 PM EDT Mmhib959812/05/2024 12:46 PM EDTTemperature--Respiratory Rate--Oxygen Saturation-- Inhaled Oxygen Concentration--Jedqoo058.6 kg (257 lb)12/05/2024 12:46 PM EDT Yhdein367.3 cm (5' 11 )12/05/2024 12:46 PM EDTBody Mass Index35.8412/05/2024 12:46 PM EDT Plan of Treatment DateTypeDepartmentCare Team (Latest Contact Info)Jhgskqjvqle52/18/2025 11:15 AM ESTAppointment [facility] [address] [place] [phone] Health MaintenanceDue DateLast DoneCommentsDepression Bqmzudmdt27/17/2007dult BMI Follow Up Plan2013Pap Smear2016COVID-19 Vaccine ( season)/07/2020, 07/22/2020Influenza Nnormnj9012/17/2024RSV ( or age 60+ yrs) (1 - Risk 1-dose series)02/26/2025dult BMI Screening Tobacco Lifilrhlg24/20/478751/DTaP,Tdap and Td Vaccines (2 - Td or Tdap)/12/2022 Medical Devices Not on file Procedures Procedure NamePriorityDate/TimeAssociated DiagnosisCommentsUS [facility] OB FOLLOW-UP, 1 AUHOGXyreutc83/23/2025 10:49 AM EDT Previous gastric bypass affecting , antepartum Hypothyroidism affecting in second trimester 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 (CMS-HCC) Obesity affecting in second trimester, unspecified obesity type [facility] OB FOLLOW-UP, 1 LHQOGUrxamfh46/18/2025 3:09 PM EDT Previous gastric bypass affecting , antepartum Hypothyroidism affecting in second trimester 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 (CMS-HCC) Obesity affecting in second trimester, unspecified obesity type Encounter for supervision of resulting from assisted reproductive technology, antepartum [facility] COMPREHENSIVE ANATOMIC RUTFMOStnelbv79/20/2025 2:42 PM EDT Screening, , for anatomic survey from Last 3 Months Results * [facility] OB FOLLOW-UP, 1 FETUS (02/07/2025 10:49 AM EDT) Only the most recent of3 resultswithin the time period is included. Anatomical RegionLateralityModalityOB-GYNUltrasoundSpecimen (Source)Anatomical Location / LateralityCollection Method / VolumeCollection TimeReceived Time 02/07/2025 10:05 AM EDT Narrative 02/07/2025 1:10 PM EDT NAME: ??MARIA EUGENIA HINDS : 1995 SEX: F Accession Number: [id number] ORDERING PHYSICIAN: ENRIKE GARCIA REFERRING PHYSICIAN: BASIM BIRMINGHAM Coding Procedures ? 89926: Ultrasound, uterus, real time with image documentation, follow up,transabdominal ? approach per fetus Indication Screening for follow-up survey, resulting from assisted reproductive technology- IUI, History of Gastric sleeve, Obesity in . History OB History ? 1. Para 0 ? [id number] Current Cell free DNA ?low risk analysis [...] (oz) ? 9 oz EFW by: ?Hadlock (YPS-MM-NG-FL) Extended Tibia ??49.1 mm 29w 3d 59% Gayle Ground Water Technician ? 5.2 mm CM ? 6.0 mm [...] Nasal bone. Heart/Thorax: 4-chamber view. 3-vessel view. 2-igaeuq-fhswqwb view. Situs. Interventricular septum.Cardiac position. ? Cardiac [...] HINDS : 1995 SEX: F Accession Number: [id number] ORDERING PHYSICIAN: ENRIKE GARCIA REFERRING PHYSICIAN: BASIM BIRMINGHAM Coding Procedures 65378: Ultrasound, uterus, real time with image documentation, follow up, transabdominal approach per fetus Indication Screening for follow-up survey, resulting from assistedreproductive technology- IUI, History of Gastric sleeve, Obesity in . History OB History 1. Para 0 P2O4Q0L3 Current Cell free DNA low risk analysis [...] EFW (oz) 9 oz EFW by: Hadlock (SAW-KA-CD-FL) Extended Tibia 49.1 mm 29w 3d 59% Gayle Ground Water Technician 5.2 mm CM 6.0 mm 25% Nicolaides [...] Nasal bone. Heart/Thorax: 4-chamber view. 3-vessel view. 5-mvxnyc-cchflnu view. Situs. Interventricular septum. Cardiac position. Cardiac [...] as necessary. Authorizing ProviderResult TypeResult StatusEnrike Garcia MDIMG US ORDERABLESFinal Result from Last 3 Months Insurance Care Teams Team MemberRelationshipSpecialtyStart DateEnd Date [place], [place] [id number] PCP - [facility]05/20/20
--- OUTSIDE RECORDS SUMMARY | 2025-02-19 14:10 | XMS_ITS | Encounter Summary ---
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 [address] Jojo Be, MATHEMATICS TECHNICIAN [address] [place], [place] [phone] Social History Tobacco UseTypesPacks/DayYears UsedDateSmoking Tobacco: Every DayCigarettes0.53 Smokeless Tobacco: NeverAlcohol UseStandard Drinks/WeekCommentsNot Currently0 (1 standard drink = 0.6 oz pure alcohol)caffeine: 1-2 cups per day teaPHQ-2Answer Date RecordedPatient Health Questionnaire-2 Fbvpf326Estimated Date of JykxzdpiBcnbxlinShx06/06/2026Based on Est. Date of ConceptionSex and Gender InformationValueDate RecordedSex Assigned at HgvhoBddzih26/04/2023 8:10 PM EDTLegal SzdReuhux49/02/2023 9:50 PM EDTGender DzrkrbsaCdpvgl84/04/2023 8:10 PM EDTSexual OrientationNot on filedocumented as of this encounter Plan of Treatment DateTypeDepartmentCare Team (Latest Contact Info)Coljmxuklqf16/ 10:30 AM ESTRoutine [facility] [address] [place] [phone] Jojo Ames PA [address] [facility] [place] [address] 08/21/2025 9:30 AM EDTOffice Visit [facility] [place] [facility] [address] [place] [address] Darleen Sinclair MD [address] [place] [address] documented as of this encounter Goals GoalPatient Goal TypeAssociated ProblemsRecent ProgressPatient-Stated?Author Reminders Care PlanOB RemindersNoOpen Scheduling, Backgrounddocumented as of this encounter Visit Diagnoses Not on filedocumented in this encounter Additional Health Concerns Active ProblemsNoted DateDiagnosed DateOB Kjezzjmzj17/07/2025 documented as of this encounter Care Teams Team MemberRelationshipSpecialtyStart DateEnd Date Amanda Ford NP [facility] [facility] [place] [address] [place] [address] PCP - GeneralFamily Bmjjvepz30/2/23documented as of this encounter
--- OUTSIDE RECORDS SUMMARY | 2025-02-19 14:22 | XMS_ITS | CCD ---
Author Organization [facility] Care Team Providers Care Director Of Primary Care Name Role Phone Mariam Appiah Primary Care Provider MACKENZIE BRITO Referring Unavailable MARIAM APPIAH Primary [...] [place] Emergency Provider MARYSOL Jett Emergency Provider [phone] MD Lashonda Farhad Admit Provider MD Farhad Gallego Attending Provider [phone] MELY Ford Attending Provider SHARRON Jefferson Attending Provider Petr Lay Unavailable Romeo Santana Unavailable MELY Ford Primary Care Provider DO Romeo Santana Attending Provider [phone] Daxa Ford NPnifer Primary Care Provider Unavailable [employer] MEDIATION COMMISSIONER, Amanda Primary Care Provider Romeo Santana DO Attending Provider [phone] [employer] MANAGER PAPER, Amanda A Primary Care Provider Unavailable Primary Care Provider Unavailabl e DVAID, MELODIE G Referring Unavailable Unavailable Primary Care Provider Unavailabl e NOLA ENRIQUEZ Attending Unavailable [employer] MANAGER PAPER, Amanda A Primary Care Provider DAVID, MELODIE [...] Unavailable JUAN, LES R Attending Unavailable [employer] MEDIATION COMMISSIONER, Amanda Primary Care Provider Kassidy Arriaza DO Emergency Provider No Pcp, No Pcp Primary Care Provider Unavailabl e Chris Dickerson DO Attending Provider [phone] Les Martinez DO Attending Provider [phone] [place] MORALESCElizabeth Attending Provider [phone] Eduardo Cruz DO Attending Provider JUAN, LES [...] No Pcp Primary Care Provider Unavailabl e DARLEEN SINCLAIR F Attending Unavailable FLYLAUREN MARIEMAD F Referring Unavailable JUAN, LES Attending Unavailable JUAN, LES Attending Unavailable JUAN, LES Referring Unavailable JUAN, LES Attending Unavailable JOJO AMES Attending Unavailable MIMA DUENAS Attending Unavailable MIMA DUENAS Referring Unavailable JOJO AMES Attending Unavailable NO PCP, NO PCP Primary Care Unavailable JUAN, LES R Referring Unavailable JUAN, LES R Referring Unavailable NO PCP, NO PCP Primary Care Unavailable Allergies Allergy ClassificationReported Allergen(s)Allergy TypeDate of OnsetReaction(s) Facility (20 sources)Non-steroidal anti-inflammatory agentDrug allergyUnkResearch Psychiatric Center [employer] [employer] Other (20 sources)Non-steroidal anti-inflammatory agent; Translations: [NSAIDs]Drug [place]43-29-5045CjpwqogW[facility] (1 source)ALLERGIES NOT ON FILE; Translations: [ALLERGIES NOT ON FILE]Propensity to adverse reactions (disorder)[facility] 3 Repository (6 sources)NSAIDs; Translations: [NSAIDS (NON-STEROIDAL ANTI-INFLAMMATORY DRUG)] Propensity to adverse reactions to [facility]wpk62[facility]27[facility]0262[facility] (1 source)NSAIDsDrug allergy (disorder)08-33-7311[facility]majzqeThe [facility] Medications Current Medications MedicationDrug Class(es)DatesSig (Normalized)Sig (Original)acetaminophen 500 mg oral tablet (20 sources)Start: 95-73-8165xsua 1 tablet by mouth every eight hours as needed acetaminophen (TYLENOL) 500 mg tablet Take 500 mg by mouth every 8 hours as needed for pain. 12/06/2023 ActiveStart: 39-51-7000mscl 1 tablet by mouth every six hours as needed for painStart: 11-28-2023 End: 80-84-4711kslygwtdjntnv (Tylenol Extra Strength) Discontinued 1000 MG PO EVERY 8-10 HOURS as needed for pain November 28, 2023 12:00am January 17, 2024 12:03pmacetaminophen 500 mg / diphenhydrAMINE hydrochloride 25 mg oral tablet (4 sources)Histamine-1 Receptor AntagonistStart: 92-20-2498kewq 2 tablets by mouth once daily at bedtime for sleepTylenol Extra Strength PM oral tablet 2 tab(s), Oral, Once a day (at bedtime) for sleep, 60 tab(s),Refill(s) 2, [facility], 182, cm, 07/09/19 13:03:00 EDT, Height/Length Measured, 200.7, k g, 07/09/19 13:03:00 EDT, Weight Measured Start Date: 10/04/19 Status: Ordered acetaminophen 325 mg / oxyCODONE hydrochloride 5 mg oral tablet (2 sources)Opioid AgonistStart: 05-07-2020 End: 05-20-4648tnfs 1 tablet by mouth every six hours [...] pain 28 tablet 0 05/07/2020 05/14/2020 ActiveStart: 89-60-8900gmfETVFDR-acetaminophen (PERCOCET) 5-325 MG per tablet 1 tablet albuterol 0.833 mg/ml / ipratropium bromide 0.167 mg/ml inhalant solution (1 source)Anticholinergic, beta2-Adrenergic AgonistStart: 19-70-4088qeemalwibhb- albuterol (DUONEB) nebulizer solution 1 ampulebenztropine mesylate 1 mg oral tablet (4 sources)Anticholinergic, AntihistamineStart: 68-60-1794qthaibgcbpq 1 mg Tab Refills(s) 0 Start Date: 01/30/20 Status: Orderedcalcium chloride 0.0014 meq/ml / potassium chloride 0.004 meq/ml / sodium chloride 0.103 meq/ml / sodium lactate 0.028 meq/ml injectable solution (2 sources)Start: 05-06-2020 End: 76-70-1593hgnpxweb ringers infusiondocusate sodium 100 mg oral capsule (20 sources)Start: 04-16-2024 End: 22-80-5316htfx 1 capsule by mouth twice daily as needed for constipation Docusate Sodium (Stool Softener) 100 mg capsule Active 0 .ROUTE .COMPLEX April 26, 2024 9:52am TAKE 1 CAPSULE BY MOUTH TWICE DAILY NEEDED FOR CONSTIPATION Complies with drug therapyStart: 04-16-2024 End: 64-52-0769kixi 1 capsule by mouth twice daily as needed for constipation Docusate Sodium (Stool Softener) 100 mg capsule Discontinued 0 .ROUTE .COMPLEX April 16, 2024 8:58am April 26, 2024 8:57am TAKE 1 CAPSULE BY MOUTH TWICE DAILY NEEDED FOR CONSTIPATIONStart: 06-17-2022 End: 08-35-7816tkkctsta sodium (Colace) 100 MG capsule 1 (one) time each day at the same time 06/17/2022 ActiveStart: 06-11-2022 End: 69-62-3869fjhm 1 capsule by mouth twice daily as [...] prefilled syringe (1 source)Low Molecular Weight HeparinStart: 53-95-0995iafhajvjzo (LOVENOX) 60 MG/0.6ML injection Inject 0.6 mLs into the skin 2 times daily 28 Syringe 0 0 05/07/2020 Active2 ml famotidine 10 mg/ml injection (1 source)Histamine-2 Receptor AntagonistStart: 90-00-3889ghvaaeurao (PEPCID) injection 20 mg1 ml heparin sodium, porcine 5000 unt/ml prefilled syringe (2 sources)Unfractionated Heparin, Anti-coagulantStart: 05-06-2020 End: 44-87-6891pgtbbtw (porcine) injection 5,000 Units1 ml HYDROmorphone hydrochloride 1 mg/ml cartridge (3 sources)Opioid AgonistStart: 26-05-4072UXVAFvldcsttn (DILAUDID) injection 1 mgStart: 05-06-2020 End: 97-57-5015IBOVRxkwgaxgt (DILAUDID) 1 MG/ML injectionStart: 05-06-2020 End: 18-03-6802IHSXRrfwztynw (DILAUDID) injection 0.5 mghydrOXYzine hydrochloride 50 mg oral tablet (4 sources)AntihistamineStart: 08-63-2858xout 1-2 tablets by mouth four times dailyhydrOXYzine hydrochloride 50 mg oral tablet See Instructions, 1-2 tab(s) Oral QID, # 60 tab(s), Refills(s) 2, Pharmacy: [id number] Start Date: 10/09/18 Status: OrderedlamoTRIgine 200 mg oral tablet (20 sources)Mood Stabilizer, Anti-epileptic AgentStart: 28-17-2338Mltxbxwzheq Active MG TABLET April 10, 2022 12:00amStart: 68-19-9275vlwnzbxilsu 200 mg Tab 300 mg = 1.5 tab(s), Oral, Daily, # 45 tab(s), Refills(s) 5, Pharmacy: [facility], 182, cm, 12/06/19 12:03:00 EDT, Height/Length Dosing, 200.7, kg, 11/28/19 9:08:00 EDT, Weight Dosing Start Date: 01/30/20 Status: OrderedStart: 10-04-2018 End: 19-07-0677mfdt 1 tablet by mouth once daily at bedtimeLamotrigine 200 mg tablet Discontinued 200 MG PO Daily at bedtime October 08, 2019 12:00am August 01, 2021 2:19pmLaMICtal 200 MG tablet 1.5 tabs Activelevothyroxine sodium 0.05 mg oral tablet (20 sources)l-ThyroxineStart: 02-24-2024 End: 74-03-8174dhkb 1 tablet by mouth before mealtimelevothyroxine (Synthroid, Levoxyl) 50 MCG tablet Indications: Nontoxic goiter Take 1 tablet (50 mcg) by mouth in the morning. Take before meals. 90 tablet 3 08/22/2024 08/17/2025 ActiveStart: 10-13-2023 End: 79-00-6412suer 1 capsule by mouth once daily in the morningLevothyroxine 50 mcg capsule Discontinued 50 MCG PO Every morning October 13, 2023 12:00am April 26, 2024 9:56amStart: 10-08-2019 End: 09-46-0332ukke 1 tablet by mouth every other dayLevothyroxine 175 mcg Tablet Discontinued 175 MCG PO every other day October 08, 2019 12:00am July 172021 2:19pm 1 tablet on odd daysStart: 10-08-2019 End: 46-64-2519avlu 1.5 tablets by mouth every other dayLevothyroxine 175 mcg Tablet Discontinued 262 MCG PO every other day October 08, 2019 12:00am July 172021 2:19pm 1.5 tabs every other day on even daysStart: 10-08-2019 End: 46-81-2947zbdn 1.5 tablets by mouth every other dayLevothyroxine Discontinued 262 MCG PO every other day October 08, 2019 12:00am August 01, 2021 2:19pm 1.5 tabs every other day on even daysStart: 08-81-8836kflr 1 tablet by mouth once dailylevothyroxine 175 mcg (0.175 mg) Tab 175 microgram = 1 tab(s), Oral, Daily, # 30 tab(s), Refills(s)0 Start Date: 09/03/18 Status: Ordered lidocaine 0.05 mg/mg medicated patch (20 sources)Antiarrhythmic, Amide Local AnestheticStart: 02-24-2024 End: 27-76-2322wlfrw 1 dose transdermal route once dailyLidocaine 5 % adhesive patch,medicated Active 0 .ROUTE .COMPLEX April 26, 2024 9:53am APPLY 1 PATCH TOPICALLY ONCE DAILY. REMOVE AFTER 12 HOURS Complies with drug therapy Start: 02-24-2024 End: 06-75-8002bbagw 1 dose topically once dailyLidocaine 5 % adhesive patch,medicated Discontinued 1 PATCH TOPICAL Daily February 24, 2024 1:00am February 24, 2024 9:54am leave on most painful area for up to 12 hrsStart: 10-24-2023 End: 70-27-2470ydlic 1 dose transdermal route once dailyLidocaine 5 % adhesive patch,medicated Discontinued 0 .ROUTE .COMPLEX October 24, 2023 8:47am January 17, 2024 12:04pm APPLY 1 PATCH TOPICALLY ONCE DAILY. REMOVE AFTER 12 HOURS Start: 06-03-2023 End: 56-33-5608dxgtc 1 dose topically once daily as neededLidocaine 5 % adhesive patch,medicated Discontinued 1 PATCH TOPICAL Daily as needed June 03, 2023 1:00am October 24, 2023 8:48am REMOVE AFTER 12 HOURSStart: 45-74-8032Xinbjkkol 5 % 1 patch remove after 12 hours Externally Once a day for 30 day(s) PRN Jan, ActiveLidocaine 5 % APPLY 1 PATCH TOPICALLY ONCE DAILY. REMOVE AFTER 12 HOURS. for 30 Activelithium carbonate 450 mg extended release oral tablet (8 sources)Start: 75-75-8670cbbg 1 tablet by mouth once daily in the morning, then take 2 tablets by mouth once daily in the eveninglithium 450 mg oral tablet, extended release See Instructions, 1 tab po qAM and 2 tabs qPM, # 90 tab (s), Refills(s) 2, Pharmacy: [facility], 182, cm, 12/06/19 12:03:00 EDT, Height/Length Dosing, 200.7, kg, 11/28/19 9:08:00 EDT, Weight Dosing Start Date: 03/17/20 Status: Orderedmagnesium oxide 400 mg oral tablet (5 sources)Start: 62-09-8582thpd 1 tablet by mouth once in the morning, then take 1 tablet by mouth at bedtimemagnesium oxide (MAGOX) 400 mg tablet Indications: headache in second trimester Take 1 tablet (400 mg total) by mouth in the morning and 1 tablet (400 mg total) before bedtime. 120 tablet 1 12/05/2024 Active2 ml ondansetron 2 mg/ml injection (1 source)Serotonin-3 Receptor AntagonistStart: 39-32-7765mkosmhmzdzg (ZOFRAN) injection 4 mgpantoprazole 40 mg extended release oral tablet (4 sources)Proton Pump InhibitorStart: 68-48-8262qxbs 1 tablet by mouth once dailypantoprazole 40 mg Oral EC Tab 40 mg = 1 tab(s), Oral, Daily, # 30 tab(s), Refills(s) 0 Start Date:09/03/18 Status: OrderedPNV Combo No.47-Iron-FA #1-DHA (PNV-DHA) 27 mg iron-1 mg -300 mg (5 sources)Start: 40-25-7074ppyx 1 capsule by mouth once dailyPNV Combo No.47-Iron-FA #1-DHA (PNV-DHA) 27 mg iron-1 mg -300 mg Take 1 capsule by mouth once daily. 08/20/2024 Activepolysaccharide iron complex 391 mg oral capsule (20 sources)Start: 19-92-8476pdhu 1 capsule by mouth twice daily at bedtimeProFe 391.3 (180 Fe) MG capsule Indications: Other iron deficiency anemia TAKE 1 CAPSULE BY MOUTH TWICE DAILY IN THE MORNING AND BEFORE BEDTIME 60 capsule 3 11/06/2024 ActiveStart: 12-07-2023 End: 78-42-9222bcvx 1 capsule by mouth once dailyPolysaccharide Iron Complex (Pro Fe) 180 mg iron capsule Discontinued 180 MG PO Daily December 07, 2023 12:00am April 23, 2024 3:52pmtake 2 capsules by mouth twice daily Polysaccharide Iron Complex (PRO FE) 180 mg iron cap Take 2 capsules by mouth two times a day. Activeprenatal wn919-qmqy-mkszl acid ( 19) 29 mg iron- 1 mg tablet,chewable (7 sources) gn376-nhvd-llspu acid ( 19) 29 mg iron- 1 mg tablet,chewable Chew 1 tablet and swallow in the morning. Activepromethazine hydrochloride 25 mg oral tablet (8 sources)PhenothiazineStart: 73-84-6109heid 1 tablet by mouth every six hours as needed for nauseapromethazine (PHENERGAN) 25 MG tablet Take 1 tablet by mouth every 6 hours as needed for Nausea 30 tablet 0 05/07/2020 ActiveStart: 05-06-2020 End: 11-84-0730wtsl 1 tablet by mouth four times daily as needed for nausea promethazine (PHENERGAN) 25 MG tablet Take 1 tablet by mouth 4 times daily as needed for Nausea 20 tablet 0 05/07/2020 05/14/2020 ActiveStart: 05-06-2020 promethazine (PHENERGAN) injection 12.5 mgStart: 03-28-2019 End: 29-85-9119ijuz 1 tablet by mouth every four hours as needed for nausea and vomitingpromethazine (PHENERGAN) 25 MG tablet TAKE 1 TABLET BY MOUTH EVERY 4 HOURS NEEDED FOR NAUSEA ANDVOMITING 0 03/28/2019 05/07/2020 Discontinued (REORDER)QUEtiapine 25 mg oral tablet (20 sources)Atypical AntipsychoticStart: 22-74-0715dcsi 1 tablet by mouth at bedtimeQuetiapine 25 mg tablet Active 25 MG PO Bedtime April 10, 2022 1:00am Complies with drug therapyStart: 55-60-1193Errbhzjqma Active MG TABLET April 10, 2022 12:00amStart: 09-50-9085lieq 2 tablets by mouth at bedtime quetiapine 50 mg oral tablet 100 mg = 2 tab(s), Oral, Bedtime, # 60 tab(s), Refills(s) 5, Pharmacy:[facility], 182, cm, 12/06/19 12:03:00 EDT, Height/Length Dosing, 200.7, kg, 11/28/19 9:08:00 EDT, Weight Dosing Start Date: 03/12/20 Status: Orderedtake 1 tablet by mouth once dailyQUEtiapine (SEROQUEL XR) 50 MG extended release tablet Take 50 mg by mouth nightly 0 Ufqzaa78 hr scopolamine 0.0139 mg/hr transdermal system (2 sources)AnticholinergicStart: 90-81-3492pmxvrlhrynp (TRANSDERM-SCOP) transdermal patch 1 patchsertraline 25 mg oral tablet (20 sources)Serotonin Reuptake InhibitorStart: 19-94-6737vqve 1 tablet by mouth once dailysertraline (Zoloft) 25 MG tablet Take 25 mg by mouth 1 (one) time each day at the same time 09/25/2024 Active3 ml sodium chloride 9 mg/ml injection (2 sources)Start: 55-83-4787pizlix chloride flush 0.9 % injection 10 mLSprintec oral tablet (4 sources)Start: 12-23-6710Rzlgvfxq oral tablet 1 tab(s), Oral, Daily, 28 tab(s), Refill(s) 0 Start Date: 05/25/19 Status: Orderedsulfamethoxazole 400 mg / trimethoprim 80 mg oral tablet (7 sources)Dihydrofolate Reductase Inhibitor Antibacterial, Sulfonamide Antimicrobialtake 1 tablet by mouth every twenty-four hoursBactrim 400-80 MG 1 tablet Orally Once a day Activeziprasidone 80 mg oral capsule (20 sources)Atypical AntipsychoticStart: 20-39-4152zjmr 1 capsule by mouth twice daily at mealtimeziprasidone 80 mg Cap 80 mg = 1 cap(s), Oral, BID, with food, # 60 cap(s), Refills(s) 2, Pharmacy: [facility], 182, cm, 12/06/19 12:03:00 EDT, Height/Length Dosing, 200.7, kg, 11/28/19 9:08:00 EDT, Weight Dosing Start Date: 03/12/20 Status: OrderedStart: 10-08-2019 End: 95-83-6194rjwv 1 capsule by mouth twice dailyZiprasidone Hcl [...] oral tablet (20 sources)Opioid AgonistStart: 08-01-2021 End: 10-38-9253hasb 1 tablet by mouth every eight hours as needed for pain Hydrocodone-Acetaminophen 5-325 mg tablet Discontinued 1 TAB PO Q8H as needed for pain 7 2 August 01, 2021 April 10, 2022 7:18pmALPRAZolam 0.5 mg oral tablet (20 sources)BenzodiazepineStart: 06-17-2022 End: 48-24-1795xpdj 1 tablet by mouth twice daily as needed for anxiety Alprazolam (Xanax) 0.5 mg tablet Discontinued 0.5 MG PO Twice daily as needed for Anxiety June 03, 2023 9:03am December 02, 2024 11:33pmStart: 06-10-2022 End: 89-00-8092cyol 1 tablet by mouth once daily as needed for anxietyAlprazolam (Xanax) 0.5 mg Tablet Discontinued 0.5 MG PO Daily as needed for Anxiety June 10, 2022 1:00am June 03, 2023 9:04amStart: 59-09-7406syxy 1-2 tablets by mouth every 30 days at bedtime as needed for anxietyalprazolam 0.5 mg Tab 1-2 tabs, Oral, Bedtime, PRN for anxiety, 30 day supply; DX: F41, anxiety, # 60 tab(s), Refills(s) 1, Pharmacy: [facility], 182, cm, 12/06/19 12:03:00 EDT, Height/Length Dosing, 200.7, kg, 11/28/19 9:08:00 EDT, Weight Dosing Start Date: 01/30/20 Status: OrderedStart: 10-08-2019 End: 34-57-2661vqma 1 tablet by mouth three times daily as needed for anxiety Alprazolam (Xanax) 0.5 mg Tablet Discontinued 0.5 MG PO Three times daily as needed for Anxiety October 08, 2019 12:00am April 10, 2022 7:18pmatomoxetine 40 mg oral capsule (11 sources)Norepinephrine Reuptake InhibitorStart: 01-25-2022 End: 54-21-0529Xkoabgpve 40 MG capsule 1 (one) time each day at the same time. 01/25/2022 10/22/2024 Wiezctytcfka97 ml bupivacaine hydrochloride 5 mg/ml injection (1 source)Amide Local AnestheticStart: 05-06-2020 End: 13-65-4454iswwjqpnbpd (PF) (MARCAINE) 0.5 % injection 200 mgStart: 05-06-2020 End: 87-65-0491vtcahotgdfc (PF) (MARCAINE) 0.5 % injection 200 mg12 hr buPROPion hydrochloride 150 mg extended release oral tablet (15 sources)AminoketoneStart: 04-26-2024 End: 76-32-4835xudo 1 tablet by mouth once dailyBupropion Hcl (Wellbutrin Sr) 150 mg tablet sustained-release 12 hr Discontinued 150 MG PO Daily April 26, 2024 1:00am December 02, 2024 11:34pm End: 07-23-2903llfh 1 tablet by mouth once dailybuPROPion XL (Wellbutrin XL) 150 MG 24 hr tablet Take 150 mg by mouth Daily Do not crush, chew, or split. 10/22/2024 DiscontinuedbusPIRone hydrochloride 15 mg oral tablet (20 sources)Start: 04-10-2022 End: 12-78-7172yyob 1 tablet by mouth three times daily as neededBuspirone 15 mg tablet Discontinued 15 MG PO Three times daily June 10, 2022 1:00am June 03, 2023 9:04am TAKE 1 TABLET BY MOUTH THREE TIMES DAILY NEEDED FOR 30 DAYSStart: 04-10-2022 End: 07-57-8910yoow 1 tablet by mouth twice dailyBuspirone 15 mg tablet Discontinued 15 MG PO Twice daily June 03, 2023 9:01am December 02, 2024 11:34pmStart: 04-10-2022 End: 24-37-7555Lnshkzwsr Discontinued MG TABLET April 10, 2022 1:00am June 10, 2022 6:28pmceFAZolin (ANCEF) 3 g in dextrose 5 % 100 mL IVPB (1 source)Start: 05-06-2020 End: 09-74-8840crHPTvwni (ANCEF) 3 g in dextrose 5 % 100 mL IVPBcyclobenzaprine hydrochloride 10 mg oral tablet (20 sources)Muscle RelaxantStart: 06-10-2022 End: 07-97-5317iqzh 1 tablet by mouth at bedtimeCyclobenzaprine 10 mg tablet Discontinued 10 MG PO Bedtime June 10, 2022 1:00am November 28, 2023 3:55pmStart: 05-07-2020 End: 51-15-0109xvfl 1 tablet by mouth once daily as needed for muscle spasms cyclobenzaprine (FLEXERIL) 10 MG tablet Take 1 tablet by mouth nightly as needed for Muscle spasms 10 tablet 0 05/07/2020 05/17/2020 ActiveStart: 98-59-4810rhmi 1 tablet by mouth twice daily as needed for muscle spasmscyclobenzaprine (FLEXERIL) 10 MG tablet Take 1 tablet by mouth 2 times daily as needed for Muscle spasms 20 tablet 0 05/07/2020 ActiveStart: 10-08-2019 End: 00-87-9975twiz 1 tablet by mouth three times daily as needed for muscle spasmsCyclobenzaprine 10 mg tablet Discontinued 10 MG PO Three times daily as needed for Muscle Spasm October 08, 2019 12:00am August 01, 2021 2:19pm End: 61-58-4202vpwx 5 mg by mouth three times daily as needed for muscle spasms cyclobenzaprine (Flexeril) 10 MG tablet Take 5 mg by mouth 3 (three) times a day as needed for muscle spasms 10/22/2024 Discontinueddiclofenac sodium 0.01 mg/mg topical gel (17 sources)Nonsteroidal Anti-inflammatory DrugStart: 11-28-2023 End: 06-64-9668rkzwo 1 g topically four times daily as needed for painDiclofenac Sodium (Aleve (Diclofenac)) 1 % gel Discontinued 1 GM TOPICAL Four times daily as neededfor pain November 28, 2023 12:00am January 17, 2024 12:03pm apply to single elbow, wrist or hand; for hand includes palm/fingers/back of handStart: 33-13-4150Cszlqpsiql Sodium 1 % 2 grams Externally Four times a day as needed for 30 day(s) Mar, Activedoxycycline hyclate 100 mg oral tablet (20 sources)Tetracycline-class DrugStart: 08-01-2021 End: 65-89-6680gblt 1 tablet by mouth twice dailyDoxycycline Hyclate 100 mg tablet Discontinued 100 MG PO Twice daily August 01, 2021 12:00am April 10, 2022 7:18pmergocalciferol 1.25 mg oral capsule (20 sources)Provitamin D2 CompoundStart: 10-08-2019 End: 63-36-1541Qmqcqocnnzyfyo (Vitamin D2) (Vitamin D2) 1,250 mcg (50,000 unit) capsule Discontinued 88740 UNIT POevery week October 08, 2019 12:00am August 01, 2021 2:19pm Takes on Sundaystart: 80-74-5010Cvidcvv D2 2000 intl units oral capsule Refills(s) 0 Start Date: 05/25/19 Status: OrderedStart: 01-12-2019 End: 58-50-5320kcuk 1 capsule by mouth every weekvitamin D (ERGOCALCIFEROL) 61765 units CAPS capsule Indications: Vitamin D deficiency Take 1 capsule by mouth once a week for 8 doses 8 capsule 0 01/12/2019 05/08/2020 Discontinued (Stop Taking at Discharge) End: 60-84-7732Olldzserbajsfh (VITAMIN D2 PO) Take 50,000 capsules by mouth once a week 0 05/08/2020 Discontinued (Stop Taking at Discharge)Ergocalciferol (VITAMIN D2 PO) Take 50,000 capsules by mouth once a week 0 ActiveNorgestimate- Ethinyl Estradiol (20 sources)Progestin, EstrogenStart: 10-08-2019 End: 38-74-2356uevo 1 tablet by mouth once dailyNorgestimate-Ethinyl Estradiol (Sprintec (28)) 0.25-35 mg-mcg tablet Discontinued 1 TAB PO Daily October 08, 2019 12:00am August 01, 2021 2:19pmStart: 10-08-2019 End: 33-97-0054sewn 1 tablet by mouth once dailyNorgestimate-Ethinyl Estradiol (Sprintec (28)) 0.25-35 mg-mcg tablet Discontinued 1 TAB PO Daily October 07, 2019 11:00pm August 01, 2021 1:19pmStart: 90-04-2618iepi 1 tablet by mouth once dailySPRINTEC 28 0.25-35 MG-MCG per tablet TAKE 1 TABLET BY MOUTH ONCE DAILY 3 01/13/2019 Active2 ml fentaNYL 0.05 mg/ml injection (1 source)Opioid AgonistStart: 05-06-2020 End: 59-94-3655lmjfrJSQ (SUBLIMAZE) injection 25 mcgferrous sulfate 325 mg oral tablet (20 sources)Start: 01-30-2020 End: 68-10-6296bocm 1 tablet by mouth once dailyFerrous Sulfate 325 mg (65 mg iron) tablet Discontinued 325 MG PO Daily June 11, 2022 1:00am August 29, 2023 11:07amgabapentin 300 mg oral capsule (1 source)Anti-epileptic AgentStart: 05-05-2020 End: 97-54-8168xtds 1 capsule by mouth once daily, then take 1 capsule by mouth, then take 1 capsule by mouthgabapentin (NEURONTIN) 300 MG capsule Take 1 capsule by mouth daily for 2 days. Take one pill the night before and one the morning of surgery 2 capsule 0 05/05/2020 05/08/2020 Discontinued (Stop Taking at Discharge)iohexol (OMNIPAQUE 240) injection 30 mL (1 source)Start: 05-07-2020 End: 91-85-6972puwwprd (OMNIPAQUE 240) injection 30 mL1 ml ketorolac tromethamine 15 mg/ml cartridge (1 source)Nonsteroidal Anti-inflammatory Drug, Cyclooxygenase InhibitorStart: 05-07-2020 End: 35-00-0208cvyxflfvh (TORADOL) injection 15 mgStart: 05-07-2020 End: 93-95-1190swdotmryg (TORADOL) injection 15 mglansoprazole 30 mg delayed release oral capsule (20 sources)Proton Pump InhibitorStart: 10-08-2019 End: 05-11-1812noam 1 capsule by mouth once daily in the morningLansoprazole 30 mg capsule,delayed release(DR/EC) Discontinued 30 MG PO Every morning November 28, 2023 12:00am February 10, 2024 11:58amletrozole 2.5 mg oral tablet (4 sources)Aromatase Inhibitor End: 66-82-9481kypq 1 tablet by mouth once dailyletrozole (Femara) 2.5 MG chemo tablet Take by mouth Daily. Take with or without food. 09/20/2024 Discontinued (Therapy completed)Lidocaine 5 % adhesive patch,medicated (3 sources)Start: 02-24-2024 End: 21-24-4647nyrsa 1 dose transdermal route once dailyLidocaine 5 % adhesive patch,medicated Discontinued 0 .ROUTE .COMPLEX February 24, 2024 8:53am J anuary 2024 8:57am APPLY 1 PATCH TOPICALLY ONCE DAILY. REMOVE AFTER 12 HOURSStart: 98-42-9491ctagx 1 dose transdermal route once dailyLidocaine 5 % adhesive patch,medicated Active 0 .ROUTE .COMPLEX February 24, 2024 8:53am APPLY 1 PATCH TOPICALLY ONCE DAILY. REMOVE AFTER 12 HOURSlurasidone hydrochloride 40 mg oral tablet (1 source)Atypical Antipsychotic End: 75-82-6771wsbg 1 tablet by mouth once dailylurasidone (LATUDA) 40 MG TABS tablet Take by mouth daily 0 04/22/2020 Discontinued (LIST CLEANUP) medroxyPROGESTERone acetate 10 mg oral tablet (20 sources)ProgestinStart: 04-10-2022 End: 99-95-4542Vzrvejjqzvrccfcxnub (Provera) 10 mg tablet Discontinued 10 MG PO Daily 01 25April 10, 2022 1:00am June 10, 2022 6:28pm begin day 16 of cyclemethylPREDNISolone acetate 80 mg/ml injectable suspension (20 sources)CorticosteroidStart: 77-96-1904LZMJ-Medrol Sep, 80 mgStart: 88-96-5647abnetpBWIAPGRwvmlb 4 MG as directed Orally daily for 6 days August, ActiveStart: 94-18-8156tpzhhhUWAZJMVrccrv 4 MG as directed Orally daily for 6 days Jan, Not-Taking2 ml midazolam 1 mg/ml injection (1 source)BenzodiazepineStart: 05-06-2020 End: 34-23-3230njhigjlyq PF (VERSED) injection 1 mgmupirocin 20 mg/ml topical cream (20 sources)RNA Synthetase Inhibitor AntibacterialStart: 06-10-2022 End: 16-93-5653Lahbidlhw Calcium 2 % cream Discontinued 1 APPLIC TOPICAL Twice daily as needed for GENITAL BOILS June 10, 2022 1:00am December 02, 2024 11:34pmStart: 84-20-3580Oqthxngog Calcium 2 % 1 application Externally Twice a day for 5 day(s) Jan, ActiveStart: 21-38-4241Xmvxjanbm Calcium 2 % 1 application Externally Twice a day for 5 day(s) Jan, Activenaltrexone hydrochloride 50 mg oral tablet (20 sources)Opioid AntagonistStart: 10-25-2023 End: 59-57-1304ypraijbqao (Depade) 50 MG tablet every 12 (twelve) hours 10/25/2023 04/21/2024 ActiveStart: 06-03-2023 End: 24-34-2491uhrs 2 tablets by mouth twice dailynaltrexone 50 mg tablet Take 2 tablets by mouth two times a day. 06/03/2023 ActiveStart: 06-03-2023 End: 32-20-2902wgte 1 tablet by mouth twice dailyNaltrexone 50 mg tablet Discontinued 100 MG PO Twice daily April 23, 2024 3:51pm December 02, 2024 11:34pmStart: 75-93-3427tckt 50 mg by mouth once dailyNaltrexone Active 50 MG PO Daily June 03, 2023 1:00amtake 1 tablet by mouth every twenty-four hours Naltrexone HCl 50 MG 1 tablet Orally Once a day ActiveoxyCODONE hydrochloride 5 mg oral tablet (17 sources)Opioid AgonistStart: 12-09-2023 End: 34-55-9872ibfm 1 tablet by mouth at mealtime for painOxycodone 5 mg tablet Discontinued 5 MG PO .q6-8hrs as needed for severe pain 03 22December 09, 2023 December 20, 2023 10:47am Take with food. Do not fill until 12/10/23.Start: 12-06-2023 End: 44-64-8343wzhs 1 tablet by mouth every six hours as needed for pain Oxycodone 5 mg tablet Discontinued 5 MG PO Q6H as needed for Pain 04 09December 06, 2023 December 07, 2023 7:13amrisperiDONE 4 mg oral tablet (1 source)Atypical AntipsychoticStart: 09-19-2018 End: 04-44-1054hlye 1 tablet by mouth in the morningrisperiDONE (RISPERDAL) 4 MG tablet TAKE 1 2 (ONE HALF) TABLET BY MOUTH IN THE MORNING AND 1 TAB INTHE EVENING 2 09/19/2018 04/22/2020 Discontinued (LIST CLEANUP)traMADol hydrochloride 50 mg oral tablet (17 sources)Opioid AgonistStart: 12-07-2023 End: 77-01-2862nggo 1 tablet by mouth every eight hours as needed for pain Tramadol 50 mg tablet Discontinued 50 MG PO Every 8 hours as needed for pain 15 7 December 1443:44pm January 17, 2024 12:04pmtrihexyphenidyl hydrochloride 2 mg oral tablet (1 source)Start: 03-28-2019 End: 33-54-1262xvaw 1 tablet by mouth twice dailytrihexyphenidyl (ARTANE) 2 MG tablet TAKE 1 TABLET BY MOUTH TWICE DAILY FOR 30 DAYS 0 03/28/2019 04/22/2020 Discontinued (LIST CLEANUP) Problems Active Problems Problem ClassificationProblemDateDocumented DateEpisodic/ChronicAbdominal pain (20 sources)Flank pain; Translations: [Unspecified abdominal pain]07-03-2021 EpisodicAdministrative/social admission (2 sources)Treatment plan given; Translations: [Counseling, unspecified] 17-92-0753EhlzcxkuHvqilhxh reactions (5 sources)Acute urticaria; Translations: [Other urticaria]24-96-9812Nococeqf Anxiety disorders (20 sources)Mixed anxiety and depressive disorder; Translations: [Anxiety disorder, unspecified]75-08-1854ZqkbkgcNmlpewqsu-deficit, conduct, and disruptive behavior disorders (20 sources)Attention deficit hyperactivity disorder, predominantly inattentive type; Translations: [Attention-deficit hyperactivity disorder, predominantly inattentive type]53-12-3581OgxsjvaHueeiplft-deficit, conduct, and disruptive behavior disorders (1 source)Attention-deficit hyperactivity disorder, predominantly inattentive typeChronicAttention-deficit, conduct, and disruptive behavior disorders (20 sources)Attention deficit hyperactivity disorder; Translations: [Attention- deficit hyperactivity disorder, predominantly inattentive type]ChronicBiliary tract disease (4 sources)Hiehmsghz43-35-7167OxzlbpjbJiangponanczk and procreative management (14 sources)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 partner; Translations: [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]Onset: 374260-26-7311GivxenqtCrancxnpmg and other anemia (19 sources)Anemia; Translations: [Anemia, unspecified]09-22-0244Dkdmsbnv Deficiency and other anemia (20 sources)Iron deficiency anemia; Translations: [Iron deficiency anemia, unspecified]77-52-4374CsnvbzngJfwsqzytgw and other anemia (4 sources)Anemia, unspecified; Translations: [Anemia, unspecified]06-10-2022 EpisodicDeficiency and other anemia (4 sources)Iron deficiency anemia, unspecified; Translations: [Iron deficiency anemia, unspecified]95-70-1979GqwlfjkjWazremcwyp and other anemia (2 sources)Other iron deficiency anemiasEpisodicDisorders usually diagnosed in infancy, childhood, or adolescence (20 sources)Non-organic primary nocturnal enuresis; Translations: [Enuresis not due to a substance or known physiological condition]ChronicEsophageal disorders (20 sources)Gastroesophageal reflux disease without esophagitis; Translations: [Gastro-esophageal reflux disease without esophagitis]Onset: 07-16-2021 Resolved: 83-67-8318IxnoopiHxrvcv infertility (20 sources)Anovulation; Translations: [Female infertility associated with anovulation]Onset: 241638-24-7132SgoqejuQdlge of unknown origin (16 sources)Fever; Translations: [Fever, unspecified]28-15-2052Rtaauxfg Genitourinary symptoms and ill-defined conditions (2 sources)Painful micturition, unspecified; Translations: [Other microscopic hematuria]EpisodicHeadache; including migraine (1 source)Headache; including migraine; Translations: [Headache, unspecified] Onset: 24-94-7314Hjtcgsrmgh during ; abruptio placenta; placenta previa (4 sources)Bleeding from female genital tract during ; Translations: [Antepartum hemorrhage, unspecified, unspecified trimester]Onset: 10-18-2024 61-42-9656BqlezijxGpkhmotbndaha and screening for infectious disease (8 sources)Patient encounter status; Translations: [Encounter for screening for infectious and parasitic diseases, unspecified]Onset: EpisodicMenstrual disorders (20 sources)Menorrhagia; Translations: [Excessive and frequent menstruation with regular cycle]ChronicMood disorders (20 sources)Bipolar disorder; Translations: [Bipolar affective disorder, currently depressed, mild]Onset: 345149-47-5378OejbkhuSezbqj and vomiting (16 sources)Vomiting; Translations: [Vomiting, unspecified]41-55-4727Esgpvfqk Nutritional deficiencies (20 sources)Vitamin D deficiency; Translations: [Vitamin D deficiency, unspecified]Onset: 01-12-2019 Resolved: 554904-07-6913VonubviKjwiimfyanm deficiencies (4 sources)Iron deficiency; Translations: [Vitamin A deficiency, unspecified] Onset: 07-16-2021 Resolved: 51-22-8205MvzguyekWalrdihgptzjlj (20 sources)Arthritis of shoulder region joint; Translations: [Primary osteoarthritis, unspecified shoulder]ChronicOther complications of (5 sources)Maternal obesity complicating , childbirth and the puerperium, antepartum; Translations: [Obesity complicating , second trimester]60-10-3670LvmqfscRcnhi complications of (1 source)Obesity complicating , second trimester; Translations: [Obesity complicating , second trimester]Onset: 24-32-1927WllrmjaQqdif complications of (4 sources)Supervision of resulting from assisted reproductive technology, first trimester; Translations: [ resulting from assisted reproductive technology]Onset: 014697-09-1365BshnprmzUjnjm complications of (2 sources)Conceived by in vitro fertilization; Translations: [Supervision of resulting from assisted reproductive technology, first trimester] 85-20-2205XlskdhgqOrwqw complications of (12 sources)Hypothyroidism in ; Translations: [Endocrine, nutritional and metabolic diseases complicating , second trimester]Onset: 908521-16-8103MiukodlgWcjvp complications of (9 sources)Bipolar disorder; Translations: [Other mental disorders complicating , second trimester]Onset: 292490-51-5235OscpasrwRgvlq complications of (2 sources)Supervision of resulting from assisted reproductive technology, unspecified trimester; Translations: [ resulting from assisted reproductive technology]Onset: 783489-62-1970GhnuewfdWyaml complications of (8 sources)Headache; Translations: [Other specified related conditions, second trimester]Onset: 322103-58-6290QrqhgnwsDwszj complications of (1 source)Other specified related conditions, second trimester; Translations: [Other specified related conditions, second trimester] Onset: 54-93-3218ZufoflwyVmkai complications of (1 source)Bariatric surgery status complicating , unspecified trimester; 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 complicating , unspecified trimester]Onset: 45-95-2742EjldqouwYjhja complications of (1 source)Endocrine, nutritional and metabolic diseases complicating , second trimester; Translations: [Endocrine, nutritional and metabolic diseases complicating , second trimester]Onset: 04-24-2998ElmtfepsEufii complications of (1 source)Other mental disorders complicating , second trimester; Translations: [Other mental disorders complicating , second trimester] Onset: 72-69-2455EkopfpuiYchrm connective tissue disease (4 sources)Plantar uaxnsqxul94-78-0287GawmsawzPgttl connective tissue disease (1 source)Lateral epicondylitis, right elbowEpisodicOther connective tissue disease (2 sources)Bursitis of right shoulderEpisodicOther connective tissue disease (20 sources)Disorder of ligament, unspecified site; Translations: [Laxity of ligament]EpisodicOther connective tissue disease (14 sources)Laxity of ligament; Translations: [Disorder of ligament, unspecified site]61-41-4864CylhemcoBatflad on above:right shoulderOther connective tissue disease (4 sources)Bilateral plantar fasciitis; Translations: [Plantar fasciitis, bilateral]Onset: Other female genital disorders (20 sources)Abnormal uterine bleeding; Translations: [Other specified abnormal uterine and vaginal bleeding]78-35-7407ExzkvpyTaljm gastrointestinal disorders (15 sources)Constipation; Translations: [Constipation, unspecified]06-08-2023 EpisodicOther gastrointestinal disorders (1 source)Constipation, unspecified; Translations: [Constipation, unspecified] 29-85-9264UvaedthiBwmji gastrointestinal disorders (11 sources)History of bypass of stomach; 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]Onset: 420870-88-7877UscxjgwcLwckb hematologic conditions (4 sources)H/O: anemia - iron deficient; Translations: [Personal history of diseases of the blood and blood-forming organs and certain disorders involving the immune mechanism]39-62-4639GtaofcqyDhgtz inflammatory condition of skin (1 source)Erythema intertrigoEpisodicOther nervous system disorders (20 sources)Chronic pain; Translations: [Other chronic pain]38-85-7077Enptfup Other nervous system disorders (2 sources)Other chronic pain; Translations: [Other chronic pain]ChronicOther nervous system disorders (12 sources)Carpal tunnel syndrome of right wrist; Translations: [Carpal tunnel syndrome, right upper limb]93-87-9872EpqxqtyIkbhn nervous system disorders (20 sources)Carpal tunnel syndrome, right upper limb; Translations: [Carpal tunnel syndrome]18-75-7953KqdfjwlKfmxw nervous system disorders (1 source)Postoperative pain ; Translations: [Post-op pain]EpisodicOther nervous system disorders (14 sources)Numbness of hand; Translations: [Anesthesia of skin]10-13-2023 EpisodicOther nervous system disorders (13 sources)Anesthesia of skin; Translations: [Disturbance of skin sensation] 52-58-9081YcsyorviPxsuz non-traumatic joint disorders (16 sources)Derangement of right [...] right shoulder joint; Translations: [Other instability, right shoulder]52-17-3359QdatizpxPchak nutritional; endocrine; and metabolic disorders (8 sources)Body mass index 40+ - severely obese; Translations: [Morbid obesity with BMI of 50.0-59.9, adult]Onset: 12-05-2018 Resolved: 441694-09-8631BcmzwrzHjfkf nutritional; endocrine; and metabolic disorders (4 sources)Morbid xxyahhb31-84-8458BqhwjojTbwft and delivery including normal (14 sources)Early stage of ; Translations: [Encounter for supervision of normal , unspecified, unspecified trimester]Onset: 09-03-2024 86-35-1979KnpijpodTkvgu screening for suspected conditions (not mental disorders or infectious disease) (5 sources)Thyroid function tests abnormal; Translations: [Abnormal results of thyroid function studies]Onset: 297245-11-2364FdvnrtryJiafp skin disorders (1 source)Follicular disorder, unspecifiedEpisodicResidual codes; unclassified (20 sources)Obstructive sleep apnea syndrome; Translations: [Obstructive sleep apnea (adult) (pediatric)]19-71-8107AiqssfqTeziuuc on above:patient denies. sleep study 2010Residual codes; unclassified (18 sources)Other specified postprocedural states; Translations: [Other postprocedural status]Onset: 07-16-2021 Resolved: 59-91-7325ZdwdqluiXxrbkqcy codes; unclassified (15 sources)Chill; Translations: [Chills (without fever)]55-36-3164Ghmjtahh Residual codes; unclassified (19 sources)History of sleeve gastrectomy; Translations: [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]]46-78-0171SxkxahkuRjabdnz on above:Aprilesidual codes; unclassified (1 source)Chills (without fever); Translations: [Chills (without fever)] 24-36-4320LyujyefhFnxznbiy codes; unclassified (1 source)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]; Translations: [Personal history of surgery to other organs]01-58-7352FuictwyhYcydilah codes; unclassified (9 sources)History of arthroscopic procedure on shoulder; Translations: [Other specified postprocedural states]68-80-2798QuhksjwyRvklghwb codes; unclassified (1 source)Gestation period, 9 weeks; Translations: [9 weeks gestation of ]53-58-4362BftratoxJzwheflo codes; unclassified (2 sources)Gestation period, 13 weeks; Translations: [13 weeks gestation of ]95-32-8017FarjxymoTzyulxls codes; unclassified (2 sources)Gestation period, 18 weeks; Translations: [18 weeks gestation of ]65-22-4940IxkivwffAssqwnjo codes; unclassified (1 source)Gestation period, 20 weeks; Translations: [20 weeks gestation of ]59-01-0115NlqvwiozIdshkymg codes; unclassified (2 sources)Gestation period, 22 weeks; Translations: [22 weeks gestation of ]98-14-8023XwulygpbZfogmxac codes; unclassified (2 sources)Gestation period, 26 weeks; Translations: [26 weeks gestation of ]95-25-1221PbssqfwjTajkvxij codes; unclassified (2 sources)Gestation period, 29 weeks; Translations: [29 weeks gestation of ]38-17-1477RwtsnhvlEqtx and subcutaneous tissue infections (20 sources)Abscess; Translations: [Cutaneous abscess, unspecified]08-01-2021 EpisodicSprains and strains (20 sources)Strain of unspecified muscle, fascia and tendon at shoulder and upper arm level, right arm, initialencounter; Translations: [Strain of other muscles, fascia and tendons at shoulder and upper arm level, right arm, initial encounter]EpisodicSubstance-related disorders (4 sources)Marijuana user; Translations: [Marijuana use]Onset: 12-05-2018 60-80-1937Rksypzo disorders (20 sources)Hypothyroidism; Translations: [Acquired hypothyroidism]Onset: 12-05-2018 Resolved: 980127-66-2942MlbzksrLenkhvs disorders (6 sources)Disorder of thyroid gland; Translations: [Disorder of thyroid, unspecified]32-29-2014HogsniitZznehbjxzvat (2 sources)History of sleeve gastrectomy; Translations: [Status post laparoscopic sleeve gastrectomy]Onset: 722854-32-3788Ybffblnjkzud (5 sources)Patient encounter status; Translations: [Pre-op testing]09-03-2018 Unclassified (1 source) 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)35-71-2503Mezfzduzxzdv (20 sources)OB RemindersOnset: 663944-92-7424Qyomlwrlvmqh (2 sources)keep next scheduled appointmentUnclassified (1 source)IUI pregnancyOnset: 00-22-3257Pozyglwhiacy (1 source)Pee's ThyroiditisOnset: 12-05-2024 Past or Other Problems Problem ClassificationProblemDateDocumented DateEpisodic/ChronicScreening and history of mental health and substance abuse codes (1 source)Personal history of nicotine dependenceOnset: 07-16-2021 Resolved: 00-62-7075MvupqrgrVeohpldxtkzv (3 sources)History of bypass of asqagoq93-87-6394Lkjakkyfbjrt (1 source)Encounter for supervision of resulting from assisted reproductive technology, fsdrcagykq64-66-6339QDJHNNF: Highlighted row has been ruled out!Unclassified (1 source)No known active ndyaopdz93-76-2511 Results Test NameValueInterpretationReference RangeFacilityUrinalysis macro (dipstick) panel (U)on 10-02-6764Nvwxjxhlh, UANegativeNegative - 4(70) +++ mg/dLNOMS HealthcareBlood, UANegativeNegative - 50 Yehuda/mcLNOMS HealthcareClarity, UAClear NOMS HealthcareColor, UAYellowNOMS HealthcareGlucose, UANegativeNegative - 2000(110) ++++ mg/dLNOMS HealthcareInterpretation and review of laboratory resultsAbnormalNOMS HealthcareKetones, UAPositiveNegative - 160(16) ++++ mg/dL NOMS HealthcareLeukocytes, UATraceNegative - 500+++ Kourtney/mcLNORI Healthcare Nitrite, UANegativeNegative - PositiveNOMS HealthcarepH, UA6.55 - 9NOMS HealthcareProtein, UANegativeNegative - 2000(20) ++++ mg/dLNOMS HealthcareSpec Grav, UA1.0101 - 1.03NOMS HealthcareUrobilinogen, UA2.00.2 - 12 mg/dLNOMS HealthcareNOMS HealthcareUS OB FOLLOW UP TRANSABDOMINAL APPROACHon 87-73-5578IK OB FOLLOW UP TRANSABDOMINAL APPROACHFINDINGS: Comparison December [...] Delivery: 04/23/25 Gestational Age as of 01/16/2025: 44o8cIbhnvrtujf macro (dipstick) panel (U)on 22-78-7961Ezzmxaduy, UANegativeNegative - 4(70) +++ mg/dLNOMS HealthcareBlood, UANegativeNegative - 50 Yehuda/mcLNORI HealthcareClarity, UAClearNOMS Healthcare Color, UAYellowNOMS HealthcareGlucose, UANegativeNegative - 2000(110) ++++ mg/dL [facility] HealthcareInterpretation and review of laboratory resultsNormalNORI HealthcareKetones, UANegativeNegative - 160(16) ++++ mg/dLNOMS Healthcare Leukocytes, UANegativeNegative - 500+++ Kourtney/mcLNORI HealthcareNitrite, UA NegativeNegative - PositiveNOMS HealthcarepH, UA75 - 9NOMS HealthcareProtein, UA NegativeNegative - 2000(20) ++++ mg/dLNOMS HealthcareSpec Grav, UA1.011 - 1.03 NOMS HealthcareUrobilinogen, UA2.00.2 - 12 mg/dLNORI HealthcareNOMS Healthcare ALL THYROID STIM HORMONEon 43-29-2696JGH Qn2.449 m[IU]/LNOMS HealthcareCLINISYNC NOMS HealthcareALL CBC WITH AUTO DIFFon 86-69-0258GUHTKNGKW ABSOLUTE OYUI5VIKW HealthcareBasophils/100 WBC (Bld)0.3 %0.2 - 2.0 %NOMS HealthcareEosinophils/100 WBC (Bld)1.2 %0.9 - 7.0 %[facility] HospitalErythrocyte distribution width (RBC) [Ratio]13.2 %11.0 - 15.0 %[facility] HealthcareHematocrit (Bld) [Volume fraction]35.6 %Low36.0 - 48.0 %[facility] HospitalHemoglobin (Bld) [Mass/Vol]12 g/dL12.0 - 16.0 g/dLEllett Memorial HospitalIMMATURE GRANULOCYTES ABS AUTO0.1HighEllett Memorial HospitalImmature granulocytes/100 WBC (Bld)0.8 %High0.0 - 0.5 %[facility] HealthcareInterpretation and review of laboratory resultsAbnormalEllett Memorial HospitalLYMPHOCYTES ABSOLUTE AUTO2.3 NOMRusk Rehabilitation CenterLymphocytes/100 WBC (Bld)19.7 %Low20.5 - 60.0 %[facility] HospitalH (RBC) [Entitic mass]29.6 pg26.7 - 34.0 pgSoutheast Missouri HospitalHC (RBC) [Mass/Vol] 33.7 g/dL29.9 - 35.2 g/dLEllett Memorial HospitalMCV (RBC) [Entitic vol]87.7 fL81.0 - 99.0 fLEllett Memorial HospitalMONOCYTES ABSOLUTE AUTO0.7El[facility] HospitalMonocytes/100 WBC (Bld)6.2 %1.7 - 12.0 %[facility] HospitalNEUTROPHILS ABSOLUTE AUTO8.5HighEllett Memorial HospitalNeutrophils/100 WBC (Bld)71.8 %43.0 - 75.0 %[facility] HospitalPlatelet mean volume (Bld) [Entitic vol]8.7 fLLow9.5 - 13.5 fLEllett Memorial HospitalTBH EO #0.1 [facility] HospitalTBH VGX800MBQMAudrain Medical Center RBC4.06LowNOAudrain Medical Center WBC11.8 HighEllett Memorial HospitalCLINISYNConway Medical CenterGLUCOSE 1 HOURon 20-83-9748Qvueheu [Mass/Vol]118 mg/dLNINF - 130 mg/dLAtrium Health Union Urinalysis macro (dipstick) panel (U)on 57-28-3090Jgbfucoxv, UANegativeNegative - 4(70) +++ mg/dLNOMS HealthcareBlood, UANegativeNegative - 50 Yehuda/mcLNOMS HealthcareClarity, UAClearNOMS HealthcareColor, UAYellowNOMS HealthcareGlucose, UANegativeNegative - 2000(110) ++++ mg/dLNORI HealthcareInterpretation and review of laboratory resultsNormalNOMS HealthcareKetones, UANegativeNegative - 160(16) ++++ mg/dLNORI HealthcareLeukocytes, UANegativeNegative - 500+++ Kourtney/mcL NOMS HealthcareNitrite, UANegativeNegative - PositiveNOMS HealthcarepH, UA75 - 9 NOMS HealthcareProtein, UANegativeNegative - 2000(20) ++++ mg/dLNORI Healthcare Spec Grav, UA1.011 - 1.03NOMS HealthcareUrobilinogen, UA1.00.2 - 12 mg/dLNORI HealthcareNOMS HealthcareNo Panel Informationon 73-61-8865ULLILKPGPWCVR HealthcareTB UA (CLEAN/CATCH) FIRST COOK/MICRO IF IND.on 77-16-5637AZWHLHKYA URINE NegativeNEGATIVENOMS HealthcareBLOOD URINESMALLAbnormalNEGATIVENORI Healthcare Clarity (U)CLEARCLEARNOMS HealthcareColor (U)LT. YELLOWYELLOWNORI Healthcare GLUCOSE URINE UANegativeNEGATIVE mg/dLNORI HealthcareInterpretation and review of laboratory resultsAbnormalNOMS HealthcareKetones Ql (U)NegativeNEGATIVE mg/dL NOMS HealthcareLeukocyte esterase Test strip Ql (U)NegativeNEGATIVENOMS HealthcareNITRITE URINENegativeNEGATIVENOMS HealthcarepH (U)5.5 [pH]5.0 - 9.0 NOMS HealthcarePROTEIN URINENegativeNEG/TRACE mg/dLNORI HealthcareSPECIFIC GRAVITY URINE1.0151.005 - 1.025NORI HealthcareURINE MICROSCOPIC INDICATEDYESNOMS HealthcareUROBILINOGEN URINE0.2 EU/dL0.2 - 1.0 EU/dLNOSaint Luke's Health SystemTBH URINE MICROSCOPIC ONLYon 36-31-9354JCRIMYES URINENONE SEENNONE SEEN #/HPFNOMS HealthcareCAST SEEN?NONE SEENNONE SEEN #/LPFNOMS HealthcareCRYSTALS SEEN?None SeenNone Seen #/HPFNOMS HealthcareMUCUS URINENONE SEENNONE SEENNOMS Healthcare SQUAMOUS EPITHELIAL CELL URINERARENONE/RARE #/LPFNOSaint Luke's Health SystemTBH RBC0-2NOMS [facility] WBCNONE SEENNONE SEEN #/HPFNOSaint Luke's Health SystemURINE CULTURE INDICATED NONOMS HealthcareUS OB 14+ WEEKS ANATOMY SCANon 89-27-5792PX OB 14+ WEEKS ANATOMY SCANEXAM: US OB [...] II, MD, PHD at 06-Dec-2024 08:04:50 AM [facility]eleradiologyNormalNot AvailableComment on above:Order Comment: US OB ANATOMY SINGLE W US OB CERVICAL LENGTH Estimated Date of Delivery: 04/23/25 Gestational Age as of 11/20/2024: 58t5pDogdsnlyfg complete panel (U)on 12-03-2024 Comment c/o urinary symptoms or increased blood pressure Name Collection Type:: VoidedFIRELANDSNOMS HealthcareAppearance of Urineon 77-10-3442Pkxjiuzcad (U)ClearNormalClearNOMS HealthcareComment on above:Order Comment: Comment c/o urinary symptoms or increased blood pressure Name Collection Type:: VoidedPerformed By: #### ADDONUAPLUS #### [place] [id number] USABacteria [Presence] in Urine by AutomatedOrdered By: Eduardo Cruz on 80-25-7615Thlqaiif Auto Ql (U)1+ [HPF]HighNone SeenThe Jewish HospitalBilirubin Test strip Ql (U)Ordered By: Eduardo Cruz on 31-38-4734Jxysekfpr Ql (U)NegativeNegativeThe Jewish HospitalColor of Urine by Autoon 32-75-5692Utgup (U)Light-YellowNormalYellowNOMS Healthcare Comment on above:Order Comment: Comment c/o urinary symptoms or increased blood pressure Name Collection Type:: VoidedPerformed By: #### ADDONUAPLUS #### [address] [address] USADipstick and Microscopicon 14-65-1192Cvnmqmmh,Urine1+ [HPF]NormalNone SeenHialeah Hospital Physician GroupComment on above:Order Comment: Comment c/o urinary symptoms or increased blood pressure Name Collection Type:: VoidedPerformed By: #### ADDONUAPLUS #### [address] [address] USABILIRUBIN,URINENegativeNormalNegativeNOMS Healthcare Comment on above:Order Comment: Comment c/o urinary symptoms or increased blood pressure Name Collection Type:: VoidedPerformed By: #### ADDONUAPLUS #### [place] [address] USAGlucose Ql (U)NormalNormalNormalNOMS HealthcareComment on above:Order Comment: Comment c/o urinary symptoms or increased blood pressure Name Collection Type:: VoidedPerformed By: #### ADDONUAPLUS #### [place] [address] USAHyaline Casts,UrineNoneNormal0-8The [facility] Physician GroupComment on above:Order Comment: Comment c/o urinary symptoms or increased blood pressure Name Collection Type:: VoidedPerformed By: #### ADDONUAPLUS #### [place] [address] USAMucus,Urine1+ [LPF]Critically abnormalThe [facility] Physician GroupComment on above:Order Comment: Comment c/o urinary symptoms or increased blood pressure Name Collection Type:: VoidedResult Comment: PERFORMED BY: [place] [address] PATHOLOGIST HOSPITALIST MEDICAL DIRECTOR DAMIÁN DOSHI M.D.Performed By: #### ADDONUAPLUS #### [place] [address] USANITRITE,URINENegativeNormalNegativeNOMS HealthcareComment on above:Order Comment: Comment c/o urinary symptoms or increased blood pressure Name Collection Type:: VoidedPerformed By: #### ADDONUAPLUS #### [place] [id number] USAOCCULT BLOOD,URINE3+NormalNegativeNOMS HealthcareComment on above:Order Comment: Comment c/o urinary symptoms or increased blood pressure Name Collection Type:: VoidedResult Comment: PERFORMED BY: [place] [address] PATHOLOGIST HOSPITALIST MEDICAL DIRECTOR DAMIÁN DOSHI M.D.Performed By: #### ADDONUAPLUS #### [facility] [address] [place] [address] USAPROTEIN,URINENegativeNormalNegativeNOMS HealthcareComment on above:Order Comment: Comment c/o urinary symptoms or increased blood pressure Name Collection Type:: VoidedPerformed By: #### ADDONUAPLUS #### [place] [address] USARBC,Jwgmk3-8Hmffhh5-9Gag [facility] Physician GroupComment on above:Order Comment: Comment c/o urinary symptoms or increased blood pressure Name Collection Type:: VoidedPerformed By: #### ADDONUAPLUS #### [place] [address] USASPECIFICY GRAVITY,URINE1.189Yvbwvf7.001-1.030NOMS HealthcareComment on above:Order Comment: Comment c/o urinary symptoms or increased blood pressure Name Collection Type:: VoidedPerformed By: #### ADDONUAPLUS #### [place] [address] USASquamous Epithelial Cell,Hrkwv4-3Dbrtza3-0Brz [facility] Physician GroupComment on above:Order Comment: Comment c/o urinary symptoms or increased blood pressure Name Collection Type:: VoidedPerformed By: #### ADDONUAPLUS #### [place] [address] USAUROBILINOGEN,URINENormalNormalNormalNOMS HealthcareComment on above:Order Comment: Comment c/o urinary symptoms or increased blood pressure Name Collection Type:: VoidedPerformed By: #### ADDONUAPLUS #### [place] [address] USAWBC,Drclc3-3Uyavsy8-9Prw [facility] Physician GroupComment on above:Order Comment: Comment c/o urinary symptoms or increased blood pressure Name Collection Type:: VoidedPerformed By: #### ADDONUAPLUS #### [place] [address] USAEpithelial cells.squamous [#/area] in Urine sediment by Automated countOrdered By: Eduardo Cruz on 78-68-6535Mtdhglnoci cells.squamous Auto (Urine sed) [#/Area]1-2 [HPF]0-2FSt. Vincent Hospital Erythrocytes [#/area] in Urine sediment by Automated countOrdered By: Eduardo Cruz on 81-54-1961RQY Auto (Urine sed) [#/Area]1-2 [HPF]0-4FSt. Vincent HospitalGlucose [Mass/volume] in Urine by Test stripOrdered By: Eduardo Cruz on 67-37-6639Rkawnfw Test strip (U) [Mass/Vol]Normal mg/dLNormalThe Jewish HospitalHemoglobin Test strip Ql (U)Ordered By: Eduardo Cruz on 40-27-6801Yulzgblqha Ql (U)3+HighNegativeThe Jewish Hospital Hyaline casts [#/area] in Urine sediment by Automated countOrdered By: Eduardo Cruz on 27-37-6710Xmpouvv casts Auto (Urine sed) [#/Area]None [LPF]0-8The Jewish HospitalKetones [Presence] in Urine by Test stripon 12-02-2024 Ketones Ql (U)NegativeNormalNegativeNOMS HealthcareComment on above:Order Comment: Comment c/o urinary symptoms or increased blood pressure Name Collection Type:: VoidedPerformed By: #### ADDONUAPLUS #### [facility] [address] [place], [place] [id number] USALeukocyte esterase [Presence] in Urine by Test stripon 25-53-6202Hopdafyyn esterase Test strip Ql (U)NegativeNormalNegativeNOMS HealthcareComment on above:Order Comment: Comment c/o urinary symptoms or increased blood pressure Name Collection Type:: VoidedPerformed By: #### ADDONUAPLUS #### [facility] [address] [place] [id number] USALeukocytes [#/area] in Urine sediment by Automated count Ordered By: Eduardo Cruz on 50-61-9760RWA Auto (Urine sed) [#/Area]1-2 [HPF]0-4 The [facility] HospitalMucus [Presence] in Urine by AutomatedOrdered By: Eduardo Cruz on 41-88-7027Epylb Auto Ql (U)1+ [LPF]AbnormalThe Jewish HospitalNitrite Test strip Ql (U)Ordered By: Eduardo Cruz on 07-37-2384Aojwbgs Ql (U)NegativeNegativeThe Jewish HospitalProtein Test strip (U) [Mass/Vol]Ordered By: Eduardo Nancy on 67-22-8235Sdmyutp (U) [Mass/Vol]NegativeNegativeMarietta Memorial Hospitalpecific gravity Test strip (U) [Rel density]Ordered By: Eduardo Nancy on 08-53-9833Btcwepnp gravity (U) [Rel density]1.0171.001-1.030The Jewish HospitalUrobilinogen Test strip (U) [Mass/Vol]Ordered By: Eduardo Cruz on 14-87-0048Mwtiekkmlcel (U) [Mass/Vol]Normal mg/dLNormalThe Jewish HospitalpH of Urine by Test stripon 43-11-1605oL (U)5.5 [pH]Normal5.0-9.0NOMS HealthcareComment on above:Order Comment: Comment c/o urinary symptoms or increased blood pressure Name Collection Type:: VoidedPerformed By: #### ADDONUAPLUS #### [facility] [address] [place] [address] USABasophils Auto (Bld) [#/Vol]Ordered By: Elizabeth Osborne ([place]) on 01-58-8854Uadpitvok (Bld) [#/Vol]0.0 10 3/uL0.0-0.1FSt. Vincent HospitalBasophils/100 WBC Auto (Bld)Ordered By: Elizabeth Osborne ([place]) on 42-64-3631Mmoocfrmn/100 WBC (Bld)0.3 %0.2-2.0[facility] Eosinophils/100 WBC Auto (Bld)Ordered By: (Roman) Elizabeth Osborne on 12-01-2024 Eosinophils/100 WBC (Bld)1.8 %0.9-7.0[facility] Erythrocyte distribution width Auto (RBC) [Ratio]Ordered By: Elizabeth Osborne ([place]) on 61-82-3078Vysnceocvap distribution width (RBC) [Ratio]14.0 %11.0-15.0 The [facility] HospitalGlobulin Calc (S) [Mass/Vol]Ordered By: (Diya Osborne on 01-84-9278Urlarfwf (S) [Mass/Vol]3.6 g/dLThe Jewish HospitalGlomerular filtration rate (GFR) estimation in non- AmericanOrdered By: (Roman) Elizabeth India on 50-48-3711RQW/1.73 sq M.predicted among non-blacks MDRD (S/P/Bld) [Vol rate/Area]mL/min/{1.73_m2}>=60 mL/min/1.73m 2FSt. Vincent HospitalHematocrit Auto (Bld) [Volume fraction]Ordered By: (Roman) Elizabeth Osborne on 52-64-9532Jwdkdcdzuz (Bld) [Volume fraction]38.0 %36.0-48.0The [facility] HospitalHemoglobin [Mass/volume] in BloodOrdered By: Johnson ([place]) India on 40-57-4414Tqlisiobgb (Bld) [Mass/Vol]13.0 g/dL12.0-16.0The [facility] HospitalLaboratory - Chemistry and Chemistry - challengeOrdered By: (Diya Osborne on 74-38-3376Lsjfanaqm Ql (U)NegativeNEGATIVEThe Jewish Hospital Glucose (U) [Mass/Vol]NegativeNEGATIVEThe Jewish HospitalKetones Ql (U)NegativeNEGATIVEThe Jewish HospitalpH (U)6.0 [pH]5.0-9.0 [facility] Hospitalpecific gravity (U) [Rel density]1.025 1.005-1.025The Jewish HospitalUrobilinogen Qn (U)1.0 {Fabián'U}/dL0.2-1.0The [facility] HospitalAlbumin [Mass/Vol]3.1 g/dL Low3.4-5.0The [facility] HospitalALP [Catalytic activity/Vol]45 U/LLow 46-116The [facility] HospitalALT [Catalytic activity/Vol]20 U/L14-59 The [facility] HospitalAST [Catalytic activity/Vol]14 U/VOpb20-62 The [facility] HospitalBilirubin [Mass/Vol]0.4 mg/dL0.2-1.0The [facility] HospitalCalcium [Mass/Vol]8.6 mg/dL8.5-10.1FSt. Vincent HospitalChloride [Moles/Vol]106 mmol/F40-793KnyuovpvaThe Jewish HospitalCO2 [Moles/Vol]25.7 mmol/L21.0-32.0[facility] Creatinine [Mass/Vol]0.37 mg/dLLow0.55-1.02[facility] GFR/1.73 sq M.predicted MDRD (S/P/Bld) [Vol rate/Area]mL/min/{1.73_m2}>=60 mL/min/1.73m 2FSt. Vincent HospitalGlucose [Mass/Vol]61 mg/dLLow 74-106The [facility] HospitalPotassium [Moles/Vol]3.9 mmol/L3.5-5.1 The [facility] HospitalProtein [Mass/Vol]6.7 g/dL6.4-8.2FTriHealth Bethesda Butler Hospitalodium [Moles/Vol]139 mmol/S928-904EfrzuasegThe Jewish HospitalUrea nitrogen [Mass/Vol]3.0 mg/dLLow7.0-18.0The Jewish HospitalUrea nitrogen/Creatinine [Mass ratio]8.1 mg/mgThe Jewish HospitalLaboratory - Hematology and Cell countsOrdered By: Elizabeth Osborne ([place]) on 09-24-4995Nxrjghwr granulocytes/100 WBC (Bld)1.0 %High0.0-0.5 The [facility] HospitalLaboratory - Specimen informationOrdered By: Elizabeth Osborne ([place]) on 84-11-4825Orlbftvxvv (U)CLEARCLEARFSt. Vincent HospitalColor (U)LT. YELLOWYELLOWThe Jewish Hospital Laboratory - UrinalysisOrdered By: Elizabeth Osborne ([place]) on 43-63-0868Ygfurbdkm esterase Test strip Ql (U)NegativeNEGATIVEThe Jewish Hospital Nitrite Ql (U)NegativeNEGATIVEThe Jewish HospitalProtein Ql (U) NegativeNEG/TRACEThe Jewish HospitalLeukocytes [#/volume] corrected for nucleated erythrocytes in Blood by Automated counOrdered By: (Owens) Elizabethnura Osborne on 35-67-3544AZD corrected for nucl RBC Auto (Bld) [#/Vol]10.0 10 3/uL4.0-11.0The [facility] HospitalLymphocytes Auto (Bld) [#/Vol]Ordered By: (Owens) Elizabethnura Osborne on 05-74-0950Wkaqnaivrvu (Bld) [#/Vol]2.2 10 3/uL1.2-3.8The Jewish HospitalLymphocytes/100 WBC Auto (Bld)Ordered By: (Owens) Elizabeth India on 84-59-1223Wamyhdjlhsf/100 WBC (Bld)22.1 %20.5-60.0[facility] Auto (RBC) [Entitic mass]Ordered By: (Owens) Elizabeth India on 76-71-8778DYA (RBC) [Entitic mass] 29.8 pg26.7-34.0The Jewish HospitalMCHC Auto (RBC) [Mass/Vol] Ordered By: (Owens) Elizabethnura Osborne on 91-58-1030CMMP (RBC) [Mass/Vol]34.2 g/dL 29.9-35.2FSt. Vincent HospitalMCV Auto (RBC) [Entitic vol]Ordered By: (Owens) Elizabeth India on 34-71-4678VVG (RBC) [Entitic vol]87.2 fL81.0-99.0 The [facility] HospitalMonocytes Auto (Bld) [#/Vol]Ordered By: (Owens) Elizabethnura Osborne on 54-76-6305Oogsrghek (Bld) [#/Vol]0.7 10 3/uL0.3-0.8 The [facility] HospitalMonocytes/100 WBC Auto (Bld)Ordered By: (Owens) Elizabeth India on 56-45-8726Sdunwqvim/100 WBC (Bld)6.5 %1.7-12.0 The Jewish HospitalNeutrophils Auto (Bld) [#/Vol]Ordered By: (Owens) Elizabeth India on 38-40-0557Vfwjzsidavq (Bld) [#/Vol]6.9 10 3/uLHigh 1.4-6.5FSt. Vincent HospitalNeutrophils/100 WBC Auto (Bld)Ordered By: Angelina) Elizabeth Osborne on 65-00-6396Rbhdwvxjjve/100 WBC (Bld)68.3 %43.0-75.0 The [facility] HospitalNo Panel InformationOrdered By: (Roman) Elizabeth Osborne on 45-67-4945Cwbrt Microscopic ReviewNOThe Jewish HospitalUrine Occult BloodNegativeNEGATIVEThe [facility] Hospital Eosinophils # (Auto)0.2 10 3/uL0.0-0.7FSt. Vincent HospitalImmature Granulocyte # (Auto)0.10 10 3/uLHigh0.00-0.03[facility] Platelet mean volume Auto (Bld) [Entitic vol]Ordered By: Elizabeth Osborne ([place]) on 06-57-6964Gemqgcau mean volume (Bld) [Entitic vol]8.3 fLLow9.5-13.5FSt. Vincent HospitalPlatelets Auto (Bld) [#/Vol]Ordered By: Angelina) Elizabeth Osborne on 93-15-8535Qinjwnewf (Bld) [#/Vol]177 10 3/pL423-123IzdvwzvyfThe Jewish HospitalRBC Auto (Bld) [#/Vol]Ordered By: Angelina) Elizabeth Osborne on 82-27-3634YRS (Bld) [#/Vol]4.36 10 6/uL4.20-5.40M[facility] Memorial Hospitalerum or plasma albumin/globulin mass ratioOrdered By: (Roman) Elizabeth Osborne on 23-89-6964Uxhlnhn/Globulin [Mass ratio]0.9 {ratio}[facility] Memorial Hospitalerum or plasma anion gap determinationOrdered By: Angelina) Elizabeth Osborne on 76-72-4297Zqobo gap [Moles/Vol]11.2 mmol/LFSt. Vincent HospitalBasophils Auto (Bld) [#/Vol]Ordered By: Chris Dickerson on 41-01-5164Fxmocgmsi (Bld) [#/Vol]0.0 10 3/uL0.0-0.1FSt. Vincent HospitalBasophils/100 WBC Auto (Bld)Ordered By: Chris Dickerson on 11-30-2024 Basophils/100 WBC (Bld)0.2 %0.2-2.0[facility] Eosinophils/100 WBC Auto (Bld)Ordered By: Chris Dickerson on 11-30-2024 Eosinophils/100 WBC (Bld)1.7 %0.9-7.0[facility] Erythrocyte distribution width Auto (RBC) [Ratio]Ordered By: Chris Dickerson on 64-32-6219Hrhxgzjihja distribution width (RBC) [Ratio]14.1 %11.0-15.0The [facility] HospitalGlobulin Calc (S) [Mass/Vol]Ordered By: Chris Dickerson on 36-19-7708Rpkrdvvs (S) [Mass/Vol]3.3 g/dLThe Jewish Hospital Glomerular filtration rate (GFR) estimation in non- AmericanOrdered By: Chris Dickerson on 80-27-1519AUW/1.73 sq M.predicted among non-blacks MDRD (S/P/Bld) [Vol rate/Area]mL/min/{1.73_m2}>=60 mL/min/1.73m 2FSt. Vincent HospitalHematocrit Auto (Bld) [Volume fraction]Ordered By: Chris Dickerson on 96-31-9076Mtdypmudtg (Bld) [Volume fraction]36.2 %36.0-48.0The [facility] HospitalHemoglobin [Mass/volume] in BloodOrdered By: Chris Dickerson on 18-90-4188Fkumfgtdio (Bld) [Mass/Vol]12.6 g/dL12.0-16.0The [facility] HospitalLaboratory - Chemistry and Chemistry - challengeOrdered By: Chris Dickerson on 81-44-8968Vrxhacvcn Ql (U)NegativeNEGATIVEThe Jewish HospitalGlucose (U) [Mass/Vol]NegativeNEGATIVEThe Jewish HospitalKetones Ql (U)NegativeNEGATIVEThe Jewish HospitalpH (U)6.0 [pH]5.0-9.0[facility] Hospitalpecific gravity (U) [Rel density] 1.0151.005-1.025The [facility] HospitalUrobilinogen Qn (U)1.0 {Fabián'U}/dL0.2-1.0The [facility] HospitalAlbumin [Mass/Vol]3.1 g/dL Low3.4-5.0The [facility] HospitalALP [Catalytic activity/Vol]47 U/L 46-116The [facility] HospitalALT [Catalytic activity/Vol]20 U/L14-59 [facility] HospitalAST [Catalytic activity/Vol]12 U/PAav55-44 The [facility] HospitalBilirubin [Mass/Vol]0.3 mg/dL0.2-1.0The [facility] HospitalBilirubin.direct [Mass/Vol]0.1 mg/dL0.0-0.2FSt. Vincent HospitalCalcium [Mass/Vol]8.8 mg/dL8.5-10.1FSt. Vincent HospitalChloride [Moles/Vol]108 mmol/NJxqb02-301XjzvznqxfThe Jewish HospitalCO2 [Moles/Vol]26.0 mmol/L21.0-32.0[facility] Creatinine [Mass/Vol]0.32 mg/dLLow0.55-1.02[facility] GFR/1.73 sq M.predicted MDRD (S/P/Bld) [Vol rate/Area]mL/min/{1.73_m2}>=60 mL/min/1.73m 2FSt. Vincent HospitalGlucose [Mass/Vol]74 mg/kK12-840 The [facility] HospitalPotassium [Moles/Vol]4.1 mmol/L3.5-5.1FSt. Vincent HospitalProtein [Mass/Vol]6.4 g/dL6.4-8.2FTriHealth Bethesda Butler Hospitalodium [Moles/Vol]142 mmol/U280-369KjqzxhzhrThe Jewish HospitalUrate [Mass/Vol]3.0 mg/dL2.6-6.0The [facility] HospitalUrea nitrogen [Mass/Vol]7.0 mg/dL7.0-18.0The [facility] HospitalUrea nitrogen/Creatinine [Mass ratio]21.9 mg/mgThe Jewish Hospital Laboratory - Hematology and Cell countsOrdered By: Chris Dickerson on 11-30-2024 Immature granulocytes/100 WBC (Bld)0.7 %High0.0-0.5FSt. Vincent HospitalLaboratory - Specimen informationOrdered By: Chris Dickerson on 11-30-2024 Appearance (U)CLEARCLEARFSt. Vincent HospitalColor (U)LT. YELLOW YELLOWThe Jewish HospitalLaboratory - UrinalysisOrdered By: Chris Dickerson on 09-92-6510Dzohwclkq esterase Test strip Ql (U)SMALLAbnormal NEGATIVEThe Jewish HospitalMucus Ql (Urine sed)TRACEAbnormalNONE SEENThe Jewish HospitalNitrite Ql (U)NegativeNEGATIVEThe Jewish HospitalProtein Ql (U)NegativeNEG/TRACEThe Jewish HospitalLeukocytes [#/volume] corrected for nucleated erythrocytes in Blood by Automated counOrdered By: Chris Dickerson on 31-34-2435UPV corrected for nucl RBC Auto (Bld) [#/Vol]8.7 10 3/uL4.0-11.0[facility] Lymphocytes Auto (Bld) [#/Vol]Ordered By: Chris Dickerson on 51-98-2524Srgsxijukpk (Bld) [#/Vol]2.0 10 3/uL1.2-3.8The [facility] HospitalLymphocytes/100 WBC Auto (Bld)Ordered By: Chris Dickerson on 82-09-0435Zzutxvaemry/100 WBC (Bld) 22.9 %20.5-60.0[facility] AdministrationH Auto (RBC) [Entitic mass] Ordered By: Chris Dickerson on 68-08-2392FLB (RBC) [Entitic mass]30.0 pg26.7-34.0 The Jewish HospitalMCHC Auto (RBC) [Mass/Vol]Ordered By: Chris Dickerson on 75-82-8304FKLW (RBC) [Mass/Vol]34.8 g/dL29.9-35.2FSt. Vincent HospitalMCV Auto (RBC) [Entitic vol]Ordered By: Chris Dickerson on 02-18-4875CMD (RBC) [Entitic vol]86.2 fL81.0-99.0The [facility] HospitalMonocytes Auto (Bld) [#/Vol]Ordered By: Chris Dickerson on 11-30-2024 Monocytes (Bld) [#/Vol]0.6 10 3/uL0.3-0.8[facility] Monocytes/100 WBC Auto (Bld)Ordered By: Chris Dickerson on 10-58-7446Hhjevhedh/100 WBC (Bld)7.2 %1.7-12.0The Jewish HospitalNeutrophils Auto (Bld) [#/Vol]Ordered By: Chris Dickerson on 68-09-5393Xwqvkenjlkn (Bld) [#/Vol]5.9 10 3/uL1.4-6.5FSt. Vincent HospitalNeutrophils/100 WBC Auto (Bld) Ordered By: Chris Dickerson on 48-88-8536Spctnfglzef/100 WBC (Bld)67.3 %43.0-75.0 The [facility] HospitalNo Panel InformationOrdered By: Chris Dickerson on 23-64-4154Hytdz BacteriaMODERATE #/HPFAbnormalNONE [facility] HospitalUrine Culture ReflexedYES-[facility] Urine Occult BloodNegativeNEGATIVEThe Jewish HospitalUrine Other CastsNONE SEEN #/LPFNONE [facility] HospitalUrine Other CrystalsNone Seen #/HPFNone [facility]omerene HospitalUrine RBC0-2 #/HPF0-2FSt. Vincent HospitalUrine Squamous Epithelial CellsFEW #/LPFAbnormalNONE/RAREThe Jewish HospitalUrine WBC0-2 #/HPF AbnormalNONE [facility] HospitalEosinophils # (Auto)0.2 10 3/uL0.0-0.7FSt. Vincent HospitalImmature Granulocyte # (Auto)0.06 10 3/uLHigh0.00-0.03The [facility] HospitalPlatelet mean volume Auto (Bld) [Entitic vol]Ordered By: Chris Dickerson on 52-89-6533Vojiexsf mean volume (Bld) [Entitic vol]8.7 fLLow9.5-13.5FSt. Vincent HospitalPlatelets Auto (Bld) [#/Vol]Ordered By: Chris Dickerson on 69-53-0939Svplhrhrz (Bld) [#/Vol] 185 10 3/fI665-721ShfwmyipwThe Jewish HospitalRBC Auto (Bld) [#/Vol]Ordered By: Chris Dickerson on 38-72-2322YVM (Bld) [#/Vol]4.20 10 6/uL4.20-5.40[facility] Hospitalerum or plasma albumin/globulin mass ratioOrdered By: Chris Dickerson on 90-36-3467Gstrguj/Globulin [Mass ratio]0.9 {ratio}[facility] Hospitalerum or plasma anion gap determinationOrdered By: Chris Dickerson on 79-84-1476Ebtlk gap [Moles/Vol]12.1 mmol/LFSt. Vincent HospitalUrine Cultureon 67-88-6493Dkbjtkbf identified Cx Nom (U)50,000 colonies/ml mixed bacterial skin contaminants 2 Days PERFORMED BY: [place] [address] PATHOLOGIST HOSPITALIST MEDICAL DIRECTOR DAMIÁN DOSHI M.D.NormalHialeah Hospital Physician GroupComment on above: Performed By: #### CUU #### [place] [address] USARECURRENT VAGINITIS (HTRX)on 95-51-2297BSZLEGMAU VAGINAE0 NOMS HealthcareATOPOBIUM VAGINAENot detectedNOMS HealthcareBVAB 2,3 (BACTERIAL VAGINOSIS ASSOCIATED BACTERIA 2, 3); MOBILUNCUS [id number] HealthcareBVAB 2,3 (BACTERIAL VAGINOSIS ASSOCIATED BACTERIA 2, 3); MOBILUNCUS SPPNot detectedNOMS HealthcareCANDIDA ALBICANS, PARAPSILOSIS, [id number] HealthcareCANDIDA ALBICANS, PARAPSILOSIS, TROPICALISNot detectedNOMS HealthcareCANDIDA GLABRATA0 NOMS HealthcareCANDIDA GLABRATANot detectedNOMS HealthcareCANDIDA YQLEUW9BTHV HealthcareCANDIDA KRUSEINot detectedNOMS HealthcareCHLAMYDIA EULIYLNCAIU0XURP HealthcareCHLAMYDIA TRACHOMATISNot detectedNOMS HealthcareGARDNERELLA VAGINALIS0 NOMS HealthcareGARDNERELLA VAGINALISNot detectedNOMS HealthcareMEGASPHAERA (TYPES 1, 2)0NOMS HealthcareMEGASPHAERA (TYPES 1, 2)Not detectedNOMS Healthcare MYCOPLASMA VUKKQDMLTG6PXHW HealthcareMYCOPLASMA GENITALIUMNot detectedNOMS HealthcareNEISSERIA PPFIFBMUUUJ4DDNT HealthcareNEISSERIA GONORRHOEAENot detected NOMS HealthcareTRICHOMONAS XVYPJXAJY4DJWN HealthcareTRICHOMONAS VAGINALISNot detectedNOMS HealthcareNOMS HealthcareALL THYROID STIM HORMONEon 31-35-8534MCV Qn1.702 m[IU]/LNOMS HealthcareCLINISYNCNOMS HealthcareAlpha-fetoprotein (AFP) measurement (bujjpgrl-po-wtmeud)Ordered By: Les Martinez on 25-96-9437UNC [MoM] 0.87.[facility] HospitalAssess gestational ageOrdered By: Les Martinez on 60-72-4182Mlizytoymnn age18.0 weeks.[facility] Estimation of maternal age-specific risk of Down syndrome birthOrdered By: Les Martinez on 25-05-2733Efo [Time]30.1 yr.[facility] HospitalInsulin dependent diabetes mellitus detectionOrdered By: Les Martinez on 11-20-2024 Insulin dependent diabetes mellitus QlNo.[facility] Interpretation of serum or plasma second trimester quad maternal screen (narrative reOrdered By: Les Martinez on 45-02-2315Kxpfle trimester quad maternal screen Gonzales [Interp]Comment.The [facility] HospitalComment on above: Interpretation: Screen NegativeThis result [...] and older.Second trimester quad maternal screen Gonzales [Interp]Negative.[facility] HospitalLaboratory - Chemistry and Chemistry - challengeOrdered By: Les Martinez on 19-08-5505LVI Qn1.702 m[IU]/L 0.358-3.740The [facility] HospitalNo Panel InformationOrdered By: Les Martinez on 37-96-4799LFE Triple Screen CommentComment.The [facility] HospitalComment on above:Gisel Gandhi, Ph.D., DABCCDirectorReferences: Available Upon Request.Multiples Of Median Cutoffs For AFP ElevationsSingleton 2.5 Black 2.8IDD 2.0 Twins 4.5 Abbreviation DefinitionsIDD - Insulin Dep DiabetesOSBR - Open Spina Bifida RiskFor further inquiries contact [employer] at [phone].This test was developed and its performance characteristicsdetermined by [employer]. It has not been cleared or approvedby the Food and Drug Administration.Performed at: [facility] [id number] [place], [place] [id number] Director: Lorena Ellis [facility], Phone: [phone] Fetoprotein Results ReceivedReport.[facility] HospitalGestational Age Calculation MethodUltrasound.The [facility] HospitalComment on above:18.0 on 11/20/2024Recalculations are not recommended when gestational datingby LMP and ultrasound are within 10 days. Maternal Quad Test [id number].[facility] HospitalMaternal RaceOther .[facility] HospitalMultiple PregnancyNo.[facility] Hospitalerum or plasma heqql-0-plgijatwccs measurement (mass/volume) Ordered By: Les Martinez on 85-04-3113TSA [Mass/Vol]27.6 ng/mL.[facility] HospitalUrinalysis macro (dipstick) panel (U)on 10-66-6428Xeenjrunu, UA NegativeNegative - 4(70) +++ mg/dLNOMS HealthcareBlood, UANegativeNegative - 50 Yehuda/mcLNOMS HealthcareClarity, UAClearNOMS HealthcareColor, UAYellowNOMS HealthcareGlucose, UANegativeNegative - 2000(110) ++++ mg/dLEllett Memorial Hospital Interpretation and review of laboratory resultsAbnormalNOSaint Luke's Health SystemKetones, UANegativeNegative - 160(16) ++++ mg/dLEllett Memorial HospitalLeukocytes, UA2+Negative - 500+++ Kourtney/mcLNORI HealthcareNitrite, UANegativeNegative - PositiveNOMS HealthcarepH, UA85 - 9NORI HealthcareProtein, UANegativeNegative - 2000(20) ++++ mg/dLOREM COMMUNITY [facility]ITAL HealthcareSpec Grav, UA1.011 - 1.03NOSaint Luke's Health SystemUrobilinogen, UA1.0 0.2 - 12 mg/dLCannon Memorial HospitalLaboratory - Chemistry and Chemistry - challengeOrdered By: Chris Dickerson on 02-95-5520Louoesjtq Ql (U)Negative NEGATIVEThe Jewish HospitalGlucose (U) [Mass/Vol]NegativeNEGATIVE The [facility] HospitalKetones Ql (U)NegativeNEGSelect Medical Specialty Hospital - CincinnatipH (U)7.5 [pH]5.0-9.0[facility] Specific gravity (U) [Rel density]1.0101.005-1.025The [facility] HospitalUrobilinogen Qn (U)1.0 {Fabián'U}/dL0.2-1.0The [facility] HospitalLaboratory - Specimen informationOrdered By: Chris Dickerson on 11-17-2024 Appearance (U)CLEARCLEARFSt. Vincent HospitalColor (U)LT. YELLOW YELLOWThe Jewish HospitalLaboratory - UrinalysisOrdered By: Chris Dickerson on 76-47-6639Wadnvjyvb esterase Test strip Ql (U)NegativeNEGATIVE The [facility] HospitalMucus Ql (Urine sed)NONE SEENNONE [facility] HospitalNitrite Ql (U)NegativeNEGSelect Medical Specialty Hospital - CincinnatiProtein Ql (U)NegativeNEG/TRACEThe Jewish HospitalNo Panel InformationOrdered By: Chris Dickerson on 59-03-3396Hfglr BacteriaTRACE #/HPF AbnormalNONE [facility] HospitalUrine Culture ReflexedNO The [facility] HospitalUrine Occult BloodNegativeNEGSelect Medical Specialty Hospital - CincinnatiUrine Other CastsNONE SEEN #/LPFNONE [facility] HospitalUrine Other CrystalsNone Seen #/HPFNone [facility] HospitalUrine RBCNONE SEEN #/HPF0-2FSt. Vincent HospitalUrine Squamous Epithelial CellsRARE #/LPFNONE/RAREThe Jewish HospitalUrine WBCNONE SEEN #/HPFNONE [facility] Ultrasound - Officeon 55-93-4752Ztglakuzd Study observation (narrative)[facility] SystemUrinalysis macro (dipstick) panel (U)on 92-12-2815Jrkonrhko, UA NegativeNegative - 4(70) +++ mg/dLNOMS HealthcareBlood, UANegativeNegative - 50 Yeuhda/mcLNOMS HealthcareClarity, UAClearNOMS HealthcareColor, UAYellowNOMS HealthcareGlucose, UANegativeNegative - 2000(110) ++++ mg/dLNOMS Healthcare Interpretation and review of laboratory resultsNormalNOMS HealthcareKetones, UA NegativeNegative - 160(16) ++++ mg/dLNOMS HealthcareLeukocytes, UANegative Negative - 500+++ Kourtney/mcLNOMS HealthcareNitrite, UANegativeNegative - Positive NOMS HealthcarepH, UA75 - 9NOMS HealthcareProtein, UANegativeNegative - 2000(20) ++++ mg/dLNOMS HealthcareSpec Grav, UA1.011 - 1.03NOMS HealthcareUrobilinogen, UA1.00.2 - 12 mg/dLNOMS HealthcareNOMS HealthcareAppearance of UrineOrdered By: Kassidy Arriaza on 48-82-9766Wsflwcizgv (U)ClearNormalClearThe Jewish HospitalComment on above:Order Comment: Name Collection Type:: Clean- Voided MidstreamPerformed By: #### UA, CUU #### [facility] [address] [place] [address] USABilirubin Test strip Ql (U)Ordered By: Kassidy Arriaza on 47-90-3245Ukmrzrowj Ql (U)NegativeNegPremier Health Miami Valley Hospital Chlamydia/GC Amplificationon 96-60-9677Jlignhehy Trachomotis, NAANegativeNormal NegativeThe [facility]ly [facility] Physician GroupComment on above:Order Comment: SOURCE OF SPECIMEN: GenitalPerformed By: #### GCCHLAMAMP #### [facility] , #### CUGEN #### [place] [address] USANeisseria Gonorrhoeae, NAANegativeNormalNegativeThe [facility] Physician GroupComment on above:Order Comment: SOURCE OF SPECIMEN: GenitalResult Comment: Performed at: = - [facility] [id number] Director Inbound Sales: Dagmar Love MD, Phone: [phone] PERFORMED BY: [place] [address] PATHOLOGIST HOSPITALIST MEDICAL DIRECTOR DAMIÁN DOSHI M.D.Performed By: #### GCCHLAMAMP #### [facility] , #### CUGEN #### [place] [address] USAColor of Urine by AutoOrdered By: Kassidy Arriaza on 87-44-9915Hzsdy (U)ColorlessNormalYAultman HospitalComment on above:Order Comment: Name Collection Type:: Clean-Voided MidstreamPerformed By: #### UA, CUU #### [place] [address] USAGenital Cultureon 41-23-7732Cywtzyw CultureGenital Results Light Normal Urogenital Damián 2 Days No More GC Specimen not tested for Neisseria gonorrheae PERFORMED BY: [place] [address] PATHOLOGIST HOSPITALIST MEDICAL DIRECTOR DAMIÁN DOSHI M.D.NormalThe [facility]ly [facility] Physician GroupComment on above: Performed By: #### GCCHLAMAMP #### [facility] , #### CUGEN #### [place] [address] USAGenital specimen bacteria identification by aerobic cultureOrdered By: Kassidy Arriaza on 43-16-6363Ouujtcwr identified Aer cx Nom (Genital specimen)[facility] Medical CenterGlucose [Mass/volume] in Urine by Test stripOrdered By: Kassidy Arriaza on 14-60-2192Syegwts Test strip (U) [Mass/Vol]Normal mg/dLNormWooster Community HospitalHemoglobin Test strip Ql (U)Ordered By: Kassidy Arriaza on 23-74-6926Swssrrthfv Ql (U)Negative [facility] Rittman Medical CenterKetones [Presence] in Urine by Test stripOrdered By: Kassidy Arriaza on 53-67-8743Ziefutg Ql (U)TraceNormalNegative The Jewish HospitalComment on above:Order Comment: Name Collection Type:: Clean-Voided MidstreamPerformed By: #### UA, CUU #### [facility] [address] [place] [address] USALaboratory - Microbiology and Antimicrobial susceptibility Ordered By: Kassidy Arriaza on 10-18-2024. trachomatis DNA AC+probe Ql (Unsp spec)NegativeNegPremier Health Miami Valley HospitalN. gonorrhoeae DNA AC+probe Ql (Unsp spec)NegativeNegPremier Health Miami Valley HospitalComment on above:Performed at: = - [facility] [id number] Director: Dagmar Love MD, Phone: [phone] esterase [Presence] in Urine by Test stripOrdered By: Kassidy Arriaza on 10-18-2024 Leukocyte esterase Test strip Ql (U)NegativeNormalNegPremier Health Miami Valley HospitalComment on above:Order Comment: Name Collection Type:: Clean- Voided MidstreamPerformed By: #### UA, CUU #### [facility] [address] [place] [address] USANitrite Test strip Ql (U)Ordered By: Kassidy Arriaza on 71-17-2473Qpnnlmx Ql (U)NegativeNegPremier Health Miami Valley HospitalProtein Test strip (U) [Mass/Vol]Ordered By: Kassidy Arriaza on 30-08-2034Aldejbb (U) [Mass/Vol]NegativeNegHolzer Medical Center – Jacksonpecific gravity Test strip (U) [Rel density]Ordered By: Kassidy Arriaza on 54-88-6362Dgykadrf gravity (U) [Rel density]1.0071.001-1.030The Jewish HospitalUS OB <= 14 weeks fetuson 62-96-1308EN OB <= 14 [facility] fetusLIM[facility] Main Lucien [address] [place], [place] [address] Ultrasound Report Signed Patient: Jaz Sanders MR#: [id number] : 1995 Acct:[id number] Age/Sex: 29 / F ADM Date: 10/18/24 Loc: ER Room: Type: [facility] ER Attending Dr: Ordering Provider: Kassidy [...] Jr., MiguelORenae 10/18/2024 2:21 PM Dictation Location: [place] [address] Tech: Natalie Haji Transcribed By: MAITE 10/18/24 1421 Dictated By: Sravan Dickinson Jr, DO 10/18/24 1419 Signed By: 10/18/24 1421NoNovant Health [facility] Physician GroupUnlisted Lab Teston 10-18-2024 [facility] SystemUrinalysison 31-78-9794Oqqsnxccw,UrineNegativeNormal NegativeThe Formerly [facility] Physician GroupComment on above:Order Comment: Name Collection Type:: Clean-Voided MidstreamPerformed By: #### UA, CUU #### [place] [id number] USAGlucose Ql (U)NormalNormalNormWest Boca Medical Center Physician GroupComment on above:Order Comment: Name Collection Type:: Clean-Voided MidstreamPerformed By: #### UA, CUU #### [place] [address] USANitrite,UrineNegativeNormalNegativeHialeah Hospital Physician GroupComment on above:Order Comment: Name Collection Type:: Clean-Voided MidstreamPerformed By: #### UA, CUU #### [place] [address] USAOccult Blood,UrineNegativeNormalNegativeThe [facility] Physician GroupComment on above:Order Comment: Name Collection Type:: Clean- Voided MidstreamResult Comment: PERFORMED BY: [place] [address] PATHOLOGIST HOSPITALIST MEDICAL DIRECTOR DAMIÁN DOSHI M.D.Performed By: #### UA, CUU #### [place] [address] USAProtein,UrineNegativeNormalNegativeHialeah Hospital Physician GroupComment on above:Order Comment: Name Collection Type:: Clean-Voided MidstreamPerformed By: #### UA, CUU #### [place] [address] USASpecificy Blythe,Urine1.653Pyanmc3.001-1.030[facility] Physician GroupComment on above:Order Comment: Name Collection Type:: Clean- Voided MidstreamPerformed By: #### UA, CUU #### [place] [address] USAUrobilinogen,UrineNormalNormalNormalThe [facility] Physician GroupComment on above:Order Comment: Name Collection Type:: Clean- Voided MidstreamPerformed By: #### UA, CUU #### [place] [address] USAUrine Cultureon 14-69-4717Nhxewxjj identified Cx Nom (U) <9,000 colonies/ml mixed bacterial skin contaminants 2 Days PERFORMED BY: [place] [address] PATHOLOGIST HOSPITALIST MEDICAL DIRECTOR DAMIÁN DOSHI M.D.[facility] Physician GroupComment on above: Performed By: #### CAESAR, CUU #### [facility] [address] [place] [address] USAUrine cultureOrdered By: Kassidy Arriaza on 10-18-2024 Bacteria identified Cx Nom (U)2 DaysThe Jewish Hospital Urobilinogen Test strip (U) [Mass/Vol]Ordered By: Kassidy Arriaza on 10-18-2024 Urobilinogen (U) [Mass/Vol]Normal mg/dLNormalThe Jewish HospitalpH of Urine by Test stripOrdered By: Kassidy Arriaza on 88-80-8300mH (U)7.0 [pH] Normal5.0-9.0The Jewish HospitalComment on above:Order Comment: Name Collection Type:: Clean-Voided MidstreamPerformed By: #### CAESAR, CUU #### [facility] [address] [place] [address] USAUnlisted Lab Teston 02-59-0635TkvIdlgva Health SystemBOX TESTon 08-74-5344WKI TEST SENT OUTUNUK HEALTHCARE ZitpemdrfjUGZ3CFRLGVFPP Healthcare JWV05-85-79NKMJ HealthcareUNITY BOX CLINISYBLUE [facility]OUNT[facility] HealthcareCoding Summaryon 48-43-9170Lzvbff SummaryHTMLBase 64 KwkowlvqGHh0hTg+PGhlYWQ+DZ1PYZElO06pwVDhqV6sR1BUJNaNQpgjCBRLFTwKPqYwrcDyUU3kuXCe ZXJu [file] b2x (more content not included)...[facility] HospitalCompliance Drug Analysis, [facility] 77-29-4860Dykpdce LCFINALInvalid Interpretation [facility] Medical CenterComment on above:Result Comment: TOXASSURE COMP DRUG ANALYSIS,UR [...] test is not intended to distinguish between ihimu-3-vdspzdzswqlpehiydbdz, the predominant form of THC in most herbal or marijuana-based products, and vlqqk-7-yzwcdcewmkrcuzdbmhmn. Lamotrigine PRESENT Acetaminophen PRESENT Test Result Flag Units Ref Range Creatinine 45 mg/dL >=20 Declared Medications: Medication list was not provided. For clinical consultation, please call . ToxAssure, ToxAssure FLEX or MAT drug testin -Technical component - Data analysis performed at [address] [address]. [phone]. Director Inbound Sales César Bains MD. ToxAssure, ToxAssure FLEX or MAT drug testing: -Technical component - Result certification performed at [facility], [address] [place] [address]. [phone] Director Inbound Sales César Bains MD. Performed At: [facility] [address] [id number] Brendon Galan [facility] Ph:[phone] By: #### [id number] ####[facility] (DEFAULT)[address] [place] [address]0726P Urineon 09-28-2024 UrineMixed skin, or urogenital damián. Clinically insignificantNormalParkwood HospitalComment on above:Performed By: #### [id number] ####[facility] (DEFAULT)[address] [place] [address] 02669HVbQx Screen LCon 09-27-2024 HBsAg Screen LCNegativeInvalid Interpretation CodeNegativeParkwood Hospital Comment on above:Result Comment: Performed At: [place] [id number] [place], [place] [id number] J Luis Gray PhD Ph:[phone] By: #### [id number], 6364127, 9418563, 30544608, 5586655271, 82180041, 6412374089, 96812006####[facility] (DEFAULT)[address] [place] [address] 21063OWK 4th Gen Screen w Reflex LCon 36-45-9270EDH Scr 4th Gen LCNon-ReactiveInvalid Interpretation Code Non ReactiveParkwood HospitalComment on above:Result Comment: HIV-1/HIV-2 antibodies and HIV-1 p24 antigen were NOT detected. There is no laboratory evidence of HIV infection. HIV Negative Performed At: [facility] [address] [place], [place] [id number] J Luis Gray PhD Ph:[phone] By: #### [id number] #### [facility] (DEFAULT) [address] [place] [address]57[address]DSG, Rfx Qn RPR/Confirm TP LCon 27-66-5503MJY LC Non-ReactiveInvalid Interpretation CodeNon ReactiveCleveland Clinic Foundation HospitalComment on above:Performed By: #### 41216924, 9745417, 5733162, 66332578, 6798461990, 85589710, 8324431550, 86382789####[facility] (DEFAULT)[address] [place] [address] 10257Dgyazev Antibodies, IgG LCon 36-21-8504Lspfmxp Antibodies, IgG LC2.78 indexInvalid Interpretation CodeImmune >0.99M[facility] HospitalComment on above:Result Comment: Non-immune <0.90 Equivocal 0.90 - 0.99 Immune >0.99 Performed At: [facility] [address] [place], [place] [id number] J Luis Gray PhD Ph:[phone] By: #### 01862492, 7049887, 4526781, 54078393, 8350479941, 67668781, 9789386272, 16147263####[facility] (DEFAULT)[address] [place] [address] 18475.Auto Diff 1on 40-13-9877Hukh Cannon %6 %Normal1-12Parkwood HospitalComment on above:Performed By: #### 77037545, 1496244, 1740550, 70188580, 9941309907, 60621820, 1514819680, 91266144####[facility] (DEFAULT)[address] [place] [address] Baso Abs#0.0 b51Nngezs8.0-0.2M[facility] HospitalComment on above:Performed By: #### 93563089, 3809623, 0100927, 56676262, 9742544206, 52947629, 4956722906, 74423459####[facility] (DEFAULT)[address] [place] [address] Basophils/100 WBC (Bld)0.1 %Low0.2-2.0[facility] HospitalComment on above: Performed By: #### 20973400, 3854701, 4577413, 18681384, 2528758878, 28861110, 7584796455, 88762363####[facility] (DEFAULT)[address] [place] [address] 84342Jwh Abs#0.2 d84Jtrhfe9.0-0.4[facility] HospitalComment on above: Performed By: #### 75139461, 3992974, 6572288, 94844801, 4651806936, 15087677, 7956432462, 16482230####[facility] (DEFAULT)[address] [place] [address] 77281Stpzbbyxnsw/100 WBC (Bld)2.0 %Normal0.9-4.0[facility] Comment on above:Performed By: #### 50433180, 1720346, 9533177, 28709095, 8333999346, 37535789, 8328771838, 23323209####[facility] (DEFAULT)[address] [place] [address] 99284Qbwdp Abs#2.0 f74Ukiilb2.3-2.9[facility] HospitalComment on above:Performed By: #### 52653256, 4058110, 3944823, 07404469, 5251263780, 20341562, 8259386975, 05026485####[facility] (DEFAULT)[address] [place] [address] 54478Mfjtffbumez/100 WBC (Bld)26 % Srjkag92-29Tmdsahlz HospitalComment on above:Performed By: #### 92491023, 8446362, 9443646, 88910397, 4614599198, 92703287, 9267945388, 69824133 ####[facility] (DEFAULT)[address] [place] [address] 44228Wauc Abs# 0.5 i18Wvqjcf4.0-0.8Parkwood HospitalComment on above:Performed By: #### 56937056, 8132662, 8073731, 63172478, 0447446212, 61526187, 2982607240, 78493663 ####[facility] (DEFAULT)[address] [place] [address] 90513Lgbh Abs# 5.1 w13Adpvnu2.5-9.2M[facility] HospitalComment on above:Performed By: #### 87794394, 1859550, 7146692, 70711317, 4017131907, 44563414, 8821603957, 90328342 ####[facility] (DEFAULT)[address] [place] [address] 36941 Neutrophils/100 WBC (Bld)66 %Qonosm03-26Qhpxhazx HospitalComment on above: Performed By: #### 57260860, 4291606, 6280482, 97908945, 3565238166, 77821057, 8931425876, 31539843####[facility] (DEFAULT)[address] [place] [address] 41308YHBJetr 35-74-9499ITM and Rh group Nom (Bld)Hx Check: Not Found Anti-A: 4+ Anti-B: 0 Anti-D: 2+ DCon: NT A1: 0 B: 2+ ABORh Interp: A POSInvalid Interpretation [facility] Medical CenterComment on above: Performed By: #### 70801304, 2125204, 7618122, 67756208, 6972612873, 26852413, 2812279193, 70502935####[facility] (DEFAULT)[address] [place] [address] 65709TMPB Gelon 56-29-2922QNSX GelNegativeWhite Hospital Comment on above:Performed By: #### 32036875, 8344572, 5713417, 34630638, 2964059250, 21625986, 0535779571, 90539518####[facility] (DEFAULT)[address] [place] [address] 94312WQR w/ Auto Diffon 15-65-7451Zfehjcjnazp distribution width (RBC) [Ratio]13.2 %Intedw19.5-15.0Parkwood HospitalComment on above:Performed By: #### 52394666, 7563515, 9052796, 29974683, 1938327062, 55095495, 5895549000, 88981499#### [facility] (DEFAULT) [address] [place] [address] 88571Xolqlkzviz (Bld) [Volume fraction]39.9 %Gxjdzl75.7-40.4 Parkwood HospitalComment on above:Performed By: #### 33835057, 2027281, 0949972, 47918372, 0336973746, 71901292, 7608285483, 14815627#### [facility] (DEFAULT) [address] [place] [address] 53744Ycwpeleqqz (Bld) [Mass/Vol]13.9 g/dDHmyyes28.3-15.9 Parkwood HospitalComment on above:Performed By: #### 68492423, 3824332, 2260383, 33557300, 2846833412, 18426935, 8025887616, 45094890#### [facility] (DEFAULT) [address] [place] [address] 29321Bov Diff?AutoInvalid Interpretation [facility] Comment on above:Performed By: #### 50434228, 2904987, 7463938, 29581661, 2137959316, 99623306, 9909839122, 98571156#### [facility] (DEFAULT) [address] [place] [address] 78991LWZ (RBC) [Entitic mass]29 dkOjwlyt78-91Xnxldzcx Hospital Comment on above:Performed By: #### 05971830, 2052543, 5912504, 83633224, 3747812034, 38916525, 6423891823, 38905755#### [facility] (DEFAULT) [address] [place] [address] 33713QXYF (RBC) [Mass/Vol]35 g/jQAqemky31-09Pppcfgni Hospital Comment on above:Performed By: #### 29186339, 0323825, 0692017, 57917720, 8773081285, 20453993, 1155145413, 24406207#### [facility] (DEFAULT) [address] [place] [address] 77358POK (RBC) [Entitic vol]84 yGLwlmus87-407Kypehnsg Hospital Comment on above:Performed By: #### 92408703, 4327449, 1399822, 40426280, 0143041758, 18068762, 2895460918, 32212120#### [facility] (DEFAULT) [address] [place] [address] 22801Crthffov764 s10Elugsg514-986Oyqjtjjl HospitalComment on above:Performed By: #### 38447520, 2386902, 3906310, 58321657, 4136215551, 20861300, 6351264413, 81649784#### [facility] (DEFAULT) [address] [place] [address] 04212Sycphprz mean volume (Bld) [Entitic vol]6.3 fLNormal 6.3-10.2MPremier Health Miami Valley Hospital NorthComment on above:Performed By: #### 83490993, 0073101, 5421023, 75124325, 9390040100, 86103409, 5274679250, 43334515#### [facility] (DEFAULT) [address] [place] [address] 05014JGW4.76 x30Shbygl6.70-5.30Parkwood HospitalComment on above:Performed By: #### 52552144, 5002775, 9727335, 42350153, 3638833661, 21703119, 0635178976, 12781571#### [facility] (DEFAULT) [address] [place] [address] 98636MSM8.8 e91Kxizyk1.5-10.5Parkwood HospitalComment on above: Performed By: #### 42974349, 2281650, 5766906, 86652351, 4919648448, 75721751, 1907106466, 26069092#### [facility] (DEFAULT) [address] [place] [address] 88492FXR surface Ag IA Qlon 99-45-7838Abgdqbfal B Surface AntigenNegativeNationwide Children's HospitalHIV 1+2 Ab+HIV1 p24 Ag IA Qlon 09-26-2024 HIV 1&2 AB/AGNon-ReactiveNationwide Children's HospitalHgbA1c Standardon 09-26-2024.Hb 13.1Invalid Interpretation [facility] CenterComment on above:Performed By: #### 29933112, 2355378, 8391684, 99727362, 4905546065, 28476803, 2477762567, 65460860####[facility] (DEFAULT)[address] [place] [address] .Hgb A1c0.38 g/dLInvalid Interpretation [facility] CenterComment on above: Performed By: #### 44893783, 5459777, 5410130, 80178573, 8766725810, 58059900, 9914536996, 96143579####[facility] (DEFAULT)[address] [place] [address] 82851Lywjxmn [Mass/Vol]91 mg/dLInvalid Interpretation [facility] CenterComment on above:Performed By: #### 38081202, 0432119, 0031050, 34529779, 1489501192, 17189222, 8673814786, 88023097####[facility] (DEFAULT)[address] [place] [address] 12783MwI3x (Bld) [Mass fraction]4.8 % 4.0 - 6.0 %Parkwood HospitalComment on above:Performed By: #### 85260957, 0455611, 6575235, 46738352, 4263043358, 51415728, 9532535640, 05872468 ####[facility] (DEFAULT)[address] [place], [place] [address]Fy Panel Informationon 24-70-8760OtoDjttsz BMdr SystemProvider Orderson 09-26-2024 Provider Jowdzc698.45.82.52.91552114013454030357449304#1.00OTGTIFFWhite HospitalRubella IGG immune statuson 21-93-0619Tphfjke immune IgG2.78ProKettering Health Main Campus SystemT. pallidum IgG+IgM IA Ql (S)on 96-81-6462RfpnbispOkt-Reactive ProMLake City Hospital and Clinic SystemType and screenon 41-00-0294Rin/Rh(D)PositiveProAndalusia Health KDWUltrasound - Officeon 27-31-9572UdoNpusisKnox Community HospitalHCG ( test) Ql (U)on 70-40-4587Vlxqqpgmvvpbxh and review of laboratory resultsAbnormalNOMS HealthcarePreg Test, UrPositiveNegativeNOSaint Luke's Health SystemNORI HealthcareUS OB TRANSVAGINALon 02-90-2526VF OB TRANSVAGINALEXAM: US OB TRANSVAGINAL HISTORY: Dating, [...] II, MD, PHD at 21-Sep-2024 08:26:46 AM [facility] TeleradiologyNormalNot AvailableComment on above:Order Comment: US OB TRANSVAGINAL No LMP recorded.Urinalysis macro (dipstick) panel (U)on 30-56-7054Yuloflzyo, UA NegativeNegative - 4(70) +++ mg/dLNOMS HealthcareBlood, [...] HealthcareUrobilinogen, UA0.20.2 - 12 mg/dLNOMS HealthcareNOMS HealthcareCNNURSEon 99-22-0630UCZSVTR Nurse Visit (TORREYV) JAZ SANDERS ([id number]) 1995 F Date Time Provider Department 09/03/24 10:40 AM US TECH 1 [facility] REJ TORREYV During your visit today, we recorded the following information about you: Manisha Weaver APRN.RADIO OFFICER 09/03/2024 5:42 PM Signed Jaz Sanders [...] 2024 5:39 PM Referring Provider: MELODIE HERNANDEZ [[id number]] Allergies As of Date: 09/03/2024 (Not on File) Date Reviewed: 08/20/2024 Reviewed by: Melodie Hernandez APRN.CNP - Fully Assessed Visit Diagnosis:Early stage of (HCC) [Z34.90] Order(s):OBSTETRIC ULTRASOUND [facility] [[id number]] Order #: [id number]. #:[id number]: 1 Prescriptions as of 09/03/2024 - buPROPion [...] (None) Encounter Status:Closed by BRADFORD DOSS on 09/03/24NoMemorial HospitalExamination level ultrasoundon 09-03-2024 Indication Viability, Repeat Impression - Single, live, intrauterine . - An intrauterine gestational sac with a yolk sac and pole is present. - Elaine rump length measurement is consistent with the established gestational age. - heart rate is within normal limits. Recommendations Referral to OB Maternal Assessment Height 180 cm Height (ft) 5 ft Height (in) 11 in Weight 98 kg Weight (lb) 216 lb BMI 30.13 kg/m Method Transvaginal ultrasound examination Ratlfif . Number of embryos: 1 Dating LMP [...] Lt ovary: Visualized Performed By: Nina Farnsworth; [facility] Read By: Bradford Doss M.D.MATERNAL MEDICINEUniversity Hospitals Ahuja Medical CenterRadiology Study observation (narrative)[facility] Ahuja Medical CenterCNNURSEon 76-11-8139YQYJVWLFosch Visit (REIBD) JAZ SANDERS ([id number]) 1995 F Date Time Provider Department 08/28/24 11:10 AM US TECH 2 [facility] BEAC REIBD During your visit today, we recorded the following information about you: Melodie Hernandez, MEDIATION COMMISSIONER.RADIO OFFICER 08/30/2024 4:36 PM Signed Jaz Sanders is here today for an early scan due to pain. This is her 1st scan. History of ectopic: No History of SAB: No History of chemical - possible - not verified History of pelvic/abdominal surgeries: Yes - gall bladder and gastric sleeve LMP /3, natural cycle, date of LH surge: 07/30, [...] scan next week as scheduled Melodie Hernandez APRN.RADIO OFFICER Mikey Torres MD 08/30/2024 4:36 PM Signed Viable ratliff IUP Size equal Date. Plan: patient to follow up with her ob for care. Stacy Banuelos MD Referring Provider: MELODIE HERNANDEZ [[id number]] Allergies As of Date: 08/28/2024 (Not on File) Date Reviewed: 08/20/2024 Reviewed by: Melodie Hernandez APRN.RADIO OFFICER - Fully Assessed Visit Diagnosis: resulting from assisted reproductive technology in first trimester ([facility]) [O09.811] Order(s):OBSTETRIC ULTRASOUND [facility] [[id number]] Order #: [id number]. #:[id number]: 1 Prescriptions as of 08/30/2024 - buPROPion [...] (None) Encounter Status:Closed by MIKEY HENLEY on 08/30/24NoMercy Health – The Jewish Hospitalamination level ultrasoundon 08-28-2024 Indication Viability Impression - Single, live, intrauterine . - An intrauterine gestational sac with a yolk sac and embryo is present. - Elaine rump length measurement is consistent with the [...] Chavez RDMS Read By: Mikey Torres M.D.MATERNAL MEDICINEUniversity Hospitals Ahuja Medical Center Radiology Study observation (narrative)[facility] Ahuja Medical CenterCNPNon 44-89-8826IGGB Telephone (REIBD) JAZ SANDERS ([id number]) 1995 F Date Time Provider Department 08/24/24 [...] Date Reviewed: 08/20/2024 Reviewed by: Melodie Hernandez APRN.RADIO OFFICER - Fully Assessed Reason for Visit: Patient Question [6687] Prescriptions as of 08/24/2024 - buPROPion SR [...] (None) Encounter Status:Closed by ARMINDA WARD on 08/24/24[facility] 81-36-2593UHIJKuwsadkhm (REIBD) JAZ SANDERS ([id number]) 1995 F Date Time Provider Department 08/23/24 MELODIE HERNANDEZ During your visit today, we recorded the following information about you: Angella Mccarthy 08/23/2024 10:39 AM Signed Name: Jaz Sanders called today. : 1995 (home) [phone] (cell) Reason for call: pt called today informing the nurse she has been experiencing pain of level 4 from 1-10. Pt has been experiencing pain for 2 day. 5 weeks today. The patients preferred pharmacy has been captured for this encounter? Angella [employer] Melodie Hernandez APRN.CNP 08/24/2024 5:58 PM Signed [...] slot. Call to patient needed: no [employer], Lana 08/25/2024 8:37 AM Signed Pt is scheduled on 09/03/2024. Melodie Hernandez APRN.CNP 08/27/2024 11:51 AM Signed Addended by: MELODIE HERNANDEZ on: 08/27/2024 11:51 AM Modules accepted: Orders Allergies As of Date: 08/23/2024 (Not on File) Date Reviewed: 08/20/2024 Reviewed by: Melodie Hernandez APRN.CNP - Fully Assessed Reason for Visit: Pain [78] Primary Visit Diagnosis:Early stage of (HCC) [Z34.90] Order(s):OBSTETRIC ULTRASOUND [facility] [[id number]] Order #: [id number]: 1 FUTURE Prescriptions as of 08/27/2024 - [...] (None) Encounter Status:Closed by MELODIE HERNANDEZ on 08/24/24[facility] Summaryon 85-93-4879Omlkcj SummaryMLBase 64 CfbkzwunNZz4qLm+PGhlYWQ+JJ5YLRDiI48aiFWfpQ9gN1EUKAbMMqjyRZPGBEeIBpJuxrFiDY5iiNAm ZXJu [file] b2x (more content not included)...[facility] HospitalCoding Summaryon 02-32-5794Zukrge SummaryHTMLBase 64 BgmexrjtSEe6tBs+PGhlYWQ+YE6NZKQwI01elPHjsJ4gP9RWAAoZYgeyXWSFCLvNChXsmgWdWA9thTEu ZXJu [file] b2x (more content not included)...NormalWestern [facility] Hospitaluder HospitalCoding SummaryHTMLBase 64 DbzowfozLGk2fTd+PGhlYWQ+QL2YRVZbZ45dvCSogF6xR7XBFLxKHnnrNLNNRFyTNjFsbcUmBS7knXPw ZXJu [file] b2x (more content not included)...[facility] HospitalProvider [place] 44-18-7194Idfvjrlc [id number]#1.00OTGTIFF White HospitalhCG Quantitativeon 29-61-5554sOD Dojnvqnedzjl853.7 mIU/mL High0.0-0.6MPremier Health Miami Valley Hospital NorthComment on above:Result Comment: Post-Menopausal Reference Range is: 0.1-11.6 mIU/mLPerformed By: #### [id number] #### [facility] (DEFAULT) [address] [place] [address] 93095ZUJGrz 17-63-7255DPLVYljqfuxbw (REIBD) JAZ SANDERS ([id number]) 1995 F Date Time Provider Department 08/16/24 MELODIE HERNANDEZ During your visit today, we recorded the following information about you: Angella Mccarthy 08/16/2024 12:31 PM Signed Name: Jaz Sanders called today. : 1995 (home) [phone] (cell) Reason for call: pt called that she got positive test, she has been having having cramping since last night , it happens every hours for couple minutes. The patients preferred pharmacy has been captured for this encounter? yes Angella [employer] Financial Aids OfficerDaniel Li APRN.CNP 08/16/2024 5:28 PM Signed Called patient back to phone [facility]no answer. Lm for patient to look out for [employer] message. Daniel Hanna APRN.JARROD August 16, [...] Text Encounter Status:Closed by DANIEL HANNA on 08/16/24[facility] CenterS[facility] 29-44-0227XHCITxlsgvnfd (REIBD) JAZ SANDERS ([id number]) 1995 F Date Time Provider Department 08/15/24 [...] Date Reviewed: 05/09/2024 Reviewed by: Melodie Hernandez, MELY.RADIO OFFICER - Fully Assessed Reason for Visit: [...] (None) Encounter Status:Closed by MELODIE HERNANDEZ on 08/15/24[facility] Hospital[facility] [place] 93-38-3329Ctiuftai Orders [id number]#1.00OTGTIFFWhite HospitalhCG Quantitativeon 45-20-9174dUI Khephhtfzhso044.6 mIU/mLHigh0.0-0.6MPremier Health Miami Valley Hospital NorthComment on above:Result Comment: Post-Menopausal Reference Range is: 0.1-11.6 mIU/mLPerformed By: #### [id number] #### [facility] (DEFAULT) [address] [place] [address] 10994GETNum 86-96-5946HMSTTqgubhwcz (REIBD) JAZ SANDERS ([id number]) 1995 F Date Time Provider Department 08/13/24 MELODIE HERNANDEZ During your visit today, we recorded the following information about you: Arminda Ward RN 08/13/2024 11:19 AM Signed Letters sent. sent to patient Arminda Ward RN August 13, 2024 11:19 AM Allergies As of Date: 08/13/2024 (Not on File) Date Reviewed: 05/09/2024 Reviewed by: Melodie Hernandez, MEDIATION COMMISSIONER.RADIO OFFICER - Fully Assessed Reason for Visit: [...] Text Encounter Status:Closed by ARMINDA WARD on 08/13/24[facility] HospitalProvider [place] 13-63-2955Alqccyeq Orders [id number]#1.00OTOhioHealth Van Wert HospitalhCG Quantitativeon 21-82-0542aGP Anyuzweuxojb41.6 mIU/mLHigh0.0-0.6MPremier Health Miami Valley Hospital North Comment on above:Result Comment: Post-Menopausal Reference Range is: 0.1-11.6 mIU/mLPerformed By: #### [id number] #### [facility] (DEFAULT) [address] [place] [address] [id number] 46-53-4579VKNAZsfbue Visit (REIBD) JAZ SANDERS ([id number]) 1995 F Date Time Provider Department 07/31/24 3:00 PM MELODIE HERNANDEZ During your visit today, we recorded the following information about you: Last Period 07/19/24 Mustapha Tello MA 07/31/2024 3:12 PM Addendum Patient verified by full name and date of . Jaz Sanders is here today for an IUI. LMP: 07/19/2024 Natural cycle IUI Timed With: Ovulation Predictor Kit , Date: 07/30/2024 Key Account Coordinator offered: Patient declines Mustapha Tello MA July 31, 2024 3:12 PM Dominguez Barry 09/05/2024 10:45 PM Signed IUI specimen released to provider Dominguez Barry July 31, 2024 3:24 PM Dominguez Barry 09/05/2024 10:45 PM Signed IUI Cryobio Donor # [id number] Pre: frozen washed specimen Post: 82 M/ml, [...] 3. Cycle Day: Last menstrual period: 07/19/2024 [place] Protocol: UNIVERSAL PROTOCOL / SAFETY CHECKLIST Procedure [...] (None) Encounter Status:Closed by MELODIE HERNANDEZ on 09/05/24[facility] Visit (ANDRBE) JAZ SANDERS ([id number]) 1995 F Date Time Provider Department 07/31/24 2:30 PM ANDROLOGY INWARD TOLL OPERATOR [facility] During your visit today, we recorded the following information about you: Dominguez Barry 07/31/2024 3:26 PM Signed Thaw for IUI. Dominguez Barry Referring Provider: SELF [[id number]] Allergies As of Date: 07/31/2024 (Not on File) Date Reviewed: 05/09/2024 Reviewed by: Melodie Hernandez, MEDIATION COMMISSIONER.RADIO OFFICER - Fully Assessed Primary Visit Diagnosis:Procreative [...] (None) Encounter Status:Closed by DOMINGUEZ BARRY on 07/31/24[facility] HospitalCNPNon 23-04-7970DLBUHyasybttj (REIBD) JAZ SANDERS ([id number]) 1995 F Date Time Provider Department 07/30/24 MELODIE HERNANDEZ During your visit today, we recorded the following information about you: SathyamanishaManisha 07/30/2024 3:16 PM Signed N- ivf Pt has questions regarding IUI Melodie Hernandez APRN.CNP 07/30/2024 6:00 PM Signed patient's OPK today was dark but not positive Plan: test again tomorrow. 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 92-15-9332CNXNSjylly Visit (REIBD) JAZ SANDERS ([id number]) 1995 F Date Time Provider Department 07/07/24 [...] Cycle Day: 14 Last menstrual period: 06/24/2024 [place] Protocol: UNIVERSAL PROTOCOL / SAFETY CHECKLIST Procedure [...] Gonzalez 07/19/2024 7:50 AM Signed IUI Cryobio #[id number] Washed frozen specimen Post: 31 m/ml, 77% Insem#: 10.8 million Referring Provider: DANIEL HANNA [[id number]] Allergies As of Date: 07/07/2024 (Not on File) Date Reviewed: 05/09/2024 Reviewed by: Melodie Hernandez APRN.RADIO OFFICER - Fully Assessed Primary Visit Diagnosis:Encounter [...] (None) Encounter Status:Closed by MIKEY HENLEY on 07/19/24[facility] Visit (ANDRBE) JAZ SANDERS ([id number]) 1995 F Date Time Provider Department 07/07/24 9:30 AM ANDROLOGY INWARD TOLL OPERATOR [facility] During your visit today, we recorded the following information about you: Nichelle Gonzalez 07/07/2024 9:41 AM Signed Thaw for IUI Nichelle Gonzalez Referring Provider: DANIEL HANNA [[id number]] Allergies As of Date: 07/07/2024 (Not on File) Date Reviewed: 05/09/2024 Reviewed by: Melodie Hernandez APRN.RADIO OFFICER - Fully Assessed Primary Visit Diagnosis:Procreative [...] (None) Encounter Status:Closed by NICHELLE GONZALEZ on 07/07/24[facility]man[facility] 27-05-0479PRWRMntaxkbwd (REIBD) JAZ SANDERS ([id number]) 1995 F Date Time Provider Department 07/06/24 [...] Date Reviewed: 05/09/2024 Reviewed by: Melodie Hernandez APRN.RADIO OFFICER - Fully Assessed Reason for Visit: [...] (None) Encounter Status:Closed by BECKI ISAACS on 07/06/24[facility] HospitalXavier 08-42-6300XSCYKqnfwelwb (REIBD) JAZ SANDERS ([id number]) 1995 F Date Time Provider Department 07/05/24 [...] Date Reviewed: 05/09/2024 Reviewed by: Melodie Hernandez APRN.RADIO OFFICER - Fully Assessed Reason for Visit: [...] (None) Encounter Status:Closed by ARMINDA WARD on 07/06/24NoCleveland Clinic Lutheran HospitalSabra 45-78-0668JGFLQmiyqkehc (REIBD) JAZ SANDERS ([id number]) 1995 F Date Time Provider Department 07/04/24 [...] to be removed. She will need [facility] guidance for her next IUI. Dr. Duran [...] (None) Encounter Status:Closed by MELODIE HERNANDEZ on 07/04/24[facility]24 Indication infertility testing Impression Normal [...] Aceves RDMS Read By: Ignacio Guy M.D.MATERNAL MEDICINEUniversity Hospitals Ahuja Medical CenterRadiology Study observation (narrative)[facility] Ahuja Medical CenterCNPNon 34-95-7989QOTWKzsqfoarc (REIBD) JAZ SANDERS ([id number]) 1995 F Date Time Provider Department 06/29/24 [...] us before iui this weekend Melodie Hernandez APRN.RADIO OFFICER 07/03/2024 12:34 PM Signed unable to reach, left message to return my call Melodie Hernandez APRN.RADIO OFFICER July 03, 2024 12:33 PM Patricia Snow 08/13/2024 8:52 AM Signed Pos preg test Arminda Ward RN 08/13/2024 9:17 AM Signed See TE encounter dated 08/13 Arminda Ward RN August 13, 2024 9:16 AM Allergies As of Date: 06/29/2024 (Not on File) Date Reviewed: 05/09/2024 Reviewed by: Melodie Hernandez APRN.RADIO OFFICER - Fully Assessed Reason for Visit: 06/09 [...] (None) Encounter Status:Closed by ARMINDA WARD on 08/13/24[facility] 35-58-5973XMGZAorgjh Visit (REIBD) JAZ SANDERS ([id number]) 1995 F Date Time Provider Department 06/09/24 11:00 AM IGNACIO GUY During your visit today, we recorded the following information about you: Nichelle Gonzalez 06/09/2024 12:30 PM Signed IUI specimen released to provider Nichelle Gonzalez June 09, 2024 11:24 AM Nichelle Gonzalez 06/09/2024 12:30 PM Signed IUI Cryobio #: [id number] Washed frozen sample Post: 42 m/ml, 74% [...] Cycle Day: 13 Last menstrual period: 05/28/2024 [place] Protocol: UNIVERSAL PROTOCOL / SAFETY CHECKLIST Procedure [...] was discussed with the patient or authorized resources representative. The patient or authorized resources representative has agreed to proceed with the sensitive examination. 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 Vidhi Sheldon MD IUI IUI Date: [...] stopped. Will get pelivc scan here at [facility] if not with this IUI prior pt proceeding with another attmept at IUI. Ignacio Guy MD June 09, 2024 12:30 PM SIGNATURE: Vidhi Sheldon MD PATIENT NAME: Jaz Sanders DATE: June 09, 2024 TIME: 12:01 PM Referring Provider: DANIEL HANNA [[id number]] Allergies As of Date: 06/09/2024 (Not on File) Date Reviewed: 05/09/2024 Reviewed by: Melodie Hernandez APRN.RADIO OFFICER - Fully Assessed Primary Visit Diagnosis:Female [...] (None) Encounter Status:Closed by IGNACIO GUY on 06/09/24[facility] Visit (ANDRBE) JAZ SANDERS ([id number]) 1995 F Date Time Provider Department 06/09/24 10:30 AM [facility]ROLOGY INWARD TOLL [facility] During your visit today, we recorded the following information about you: Nichelle Gonzalez 06/09/2024 11:48 AM Signed Thaw for IUI Nichelle Gonzalez Referring Provider: DANIEL HANNA [[id number]] Allergies As of Date: 06/09/2024 (Not on File) Date Reviewed: 05/09/2024 Reviewed by: Melodie Hernandez APRN.RADIO OFFICER - Fully Assessed Primary Visit Diagnosis:Procreative [...] (None) Encounter Status:Closed by NICHELLE GONZALEZ on 06/09/24[facility] Summaryon 54-04-5582Bfggyn SummaryJORDAN VALLEY MEDICAL CENTER WEST VALLEY CAMPUSBase 64 UukvhpisGEi4uVm+PGhlYWQ+XL3HLLHdN55mbDHutY7nI8COCUjYYiwiGAXEJFlTRzLotqBhSE4tgTRd ZXJu [file] b2x (more content not included)...White HospitalProgesterone LCon 80-23-0006Nvjbpdwpmzzv LC7.6 ng/mLInvalid Interpretation [facility] Comment on above:Result Comment: Follicular phase 0.1 - 0.9 Luteal phase 1.8 - 23.9 Ovulation phase 0.1 - 12.0 First trimester 11.0 - 44.3 Second trimester 25.4 - 83.3 Third trimester 58.7 - 214.0 Postmenopausal 0.0 - 0.1 Performed At: [facility] [address] [place], [place] [id number] J Luis Gray PhD Ph:[phone] By: #### [id number] ####[facility] ([facility])[address] [place] [address] 38741Mloajzxk [place] 51-93-0314Yqghstjq [id number]#1.00OTMadison HealthPhysical Therapy Noteon 04-04-3787Knnmlpue Therapy Note [id number]#1.00OTOhioHealth Van Wert Hospital 25(OH)D3 [facility] 359793-jopqgiwfokrojn D3 [Mass/Vol]28.8 ng/mLLow 31.0-80.0Av HospitalComment on above:Order Comment: Specimen Type: BLOOD SPECIMEN Ordering Facility: [facility] Address: [address] [place], [place] [address]Result Comment: Classification of 25 [place] Vitamin D status: Deficiency/Insufficiency: < or = 30 ng/ml. Sufficiency/Optimal Levels: 31-80 ng/mL Toxicity: > 100 ng/mL. Test performed by chemiluminescent immunoassay.Performed By: #### 17780-7 #### [facility] CLIA [id number] [address] [place] [address] [place] [facility] HEALTH SYSTEMC. trachomatis+N. gonorrhoeae DNA AC+probe Ql (Unsp spec)on 04-02-2024. trachomatis rRNA AC+probe Ql (Unsp spec)Not detectedNormalNot detectedAv HospitalComment on above:Order Comment: Specimen Type: BLOOD SPECIMEN Ordering Facility: [facility] Address: [address] [place], [place] [address]Performed By: #### 53320-4 #### [facility] CLIA [id number] [address] [place] [address] [place]. gonorrhoeae rRNA AC+probe Ql (Unsp spec)Not detectedNormalNot detectedAv HospitalComment on above:Order Comment: Specimen Type: BLOOD SPECIMEN Ordering Facility: [facility] Address: [address] [place], [place] [address]Performed By: #### 21908-4 #### [facility] CLIA [id number] [address] [place] [address] [place] AMERICACARRIER SCREEN, EXPANDEDon 75-44-8553AHELMWD SCREEN RESULTSView results in Scanned Documents link when available.NormalAvon HospitalComment on above:Order Comment: Specimen Type: BLOOD SPECIMEN Ordering Facility: [facility] Address: [address] [place], [place] [address]Performed By: #### 55102-7 #### [facility] CLIA [id number] [address] [place] [address] [place] AMERICACMV IgG Qnon 44-30-1298NSS IGG QUALNegativeNormalNegativeAv HospitalComment on above:Order Comment: Specimen Type: BLOOD SPECIMEN Ordering Facility: [facility] Address: [address] [place], [place] [address]Result Comment: No serological evidence of past exposure to Cytomegalovirus. Cannot exclude recent infection if the specimen collected within 4-6 weeks after infection.Performed By: #### 1989-3RIO, 7852-7, 7853-5, VZVG2 #### [facility] CLIA [id number] [address] [place] [address] [place] AMERICACMV IgG SerPl-aCncon 01-60-9753NDZ IgG Qn<0.20NormalAvon HospitalComment on above:Order Comment: Specimen Type: BLOOD SPECIMEN Ordering Facility: [facility] Address: [address] [place], [place] [address]Result Comment: The magnitude of the measured result is not indicative of the amount of antibody present. U/mL values are interpreted as follows: Negative <0.6 Equivocal 0.6 to <0.70 Positive >=0.70Performed By: #### 1989-3, RIO, 7852-7, 7853-5, VZVG2 #### [facility] CLIA [id number] [address] [place] [address] [place] AMERICACMV IgM Qnon 46-30-5717DLD IGM, QUALNegativeNormalNegativeAvon HospitalComment on above:Order Comment: Specimen Type: BLOOD SPECIMEN Ordering Facility: [facility] Address: [address] [place], [place] [address]Result Comment: No serological evidence of recent exposure to Cytomegalovirus.Performed By: #### 1989-3, RUBIGG, 7852-7, 7853-5, VZVG2 #### [facility] CLIA [id number] [address] [place] [address] [place] AMERICAHBV core Ab Ser Qlon 62-68-6346IKK core Ab Ql (S)NegativeNormalNegativeAvon HospitalComment on above: Order Comment: Specimen Type: BLOOD SPECIMEN Ordering Facility: [facility] Address: [address] [place], [place] [address]Result Comment: No evidence of current or past infection with Hepatitis B virus. Should recent infection be suspected, repeat testing may be considered 3-4 weeks after this draw.Performed By: #### 23932-2, 5195-3, 07553-3, 56563-9 #### [facility] CLIA [id number] [address] [place] [address] [place] AMERICAHBV surface Ag Ser Qlon 41-46-2840TNL surface Ag Ql (S)NegativeNormalNegativeAvon HospitalComment on above:Order Comment: Specimen Type: BLOOD SPECIMEN Ordering Facility: [facility] Address: [address] [place], [place] [address]Performed By: #### 95920-2, 5195-3, 42696-7, 26975-0 #### [facility] CLIA [id number] [address] [place] [address] [place] AMERICAHCV Ab Ser Qlon 04-02-2024 HCV Ab Ql (S)NegativeNormalNegativeAvon HospitalComment on above:Order Comment: Specimen Type: BLOOD SPECIMEN Ordering Facility: [facility] Address: [address] [place], [place] [address]Result Comment: The result suggests no evidence of active infection with Hepatitis C virus. Should recent infection be suspected, repeat testing may be considered 4-6 weeks after this draw. Performed By: #### 27178-9 #### [facility] CLIA [id number] [address] [place] [address] [place] AMERICAHIV 1+2 Ab IA Qlon 53-62-6347NDY 1 and 2 Ab IA.rapid Nom (S/P/Bld)[facility] Samson Community HospitalComment on above:Order Comment: Specimen Type: BLOOD SPECIMEN Ordering Facility: [facility] Address: [address] [place], [place] [address]Result Comment: Test not indicated. Performed By: #### 86699-8, 5195-3, 59351-2, 78658-2 #### [facility] CLIA [id number] [address] [place] [address] STATES OF AMERICAHIV 1+2 Ab+HIV1 p24 Ag IA Ql Non-ReactiveNormalNonreIntermountain HealthcareComment on above:Order Comment: Specimen Type: BLOOD SPECIMEN Ordering Facility: [facility] Address: [address] [place], [place] [address]Performed By: #### 41356-8, 5195-3, 58133-1, 36439-6 #### [facility] CLIA [id number] [address] [place] [address] STATES OF AMERICAHIV immunoassay testing algorithm interpretation (S/P/Bld) [Interp][facility] Samson Community HospitalComment on above: Order Comment: Specimen Type: BLOOD SPECIMEN Ordering Facility: [facility] Address: [address] [place], [place] [address]Result Comment: No evidence of HIV- 1 or HIV-2 infection. Should recent infection be suspected, repeat testing may be considered 2-3 weeks after this draw. [place] Rev. Code 3701.243(E): This information has been [...] HIV test results or diagnoses.Performed By: #### 59296-8, 5195-3, 58519-5, 96145-7 #### [facility] CLIA [id number] [address] [place] [address] [place] SXMNRRASkC4q (Bld)on 04-02-2024 Average glucose Estimated from glycated hemoglobin (Bld) [Mass/Vol]85 mg/dL NormalAv HospitalComment on above:Order Comment: Specimen Type: BLOOD SPECIMEN Ordering Facility: [facility] Address: [address] [place], [place] [address]Result Comment: eAG: (Estimated average glucose) is a calculated value from HgbA1c and is resources representative of the average blood glucose level in the last 2-3 month period.Performed By: #### 69918-9 #### [facility] CLIA [id number] [address] [place] [address] [place] VQSVFSNQgA9u (Bld) [Mass fraction] 4.6 %Normal4.3-5.6Avon HospitalComment on above:Order Comment: Specimen Type: BLOOD SPECIMEN Ordering Facility: [facility] Address: [address] [place], [place] [address]Result Comment: [place] [employer] guidelines indicate that patients with HgbA1c in the range 5.7-6.4% are at increased risk for development of diabetes, and intervention by lifestyle modification may be beneficial. HgbA1c greater or equal to 6.5% is considered diagnostic of diabetes.Performed By: #### 91093-3 #### [facility] CLIA [id number] [address] [place] [address] [place] AMERICARUBELLA IGG ANTIBODYon 05-94-2974QLSHKIY IGG AB, QUALPositiveNormalPositiveAv HospitalComment on above:Order Comment: Specimen Type: BLOOD SPECIMEN Ordering Facility: [facility] Address: [address] [place], [place] [address]Result Comment: The result suggests recent or past exposure to Rubella virus or history of Rubella vaccination. Positive result may also be seen due to presence of passively-transferred antibodies. Please correlate with patient's history.Performed By: #### 1989-3, RUBIGG, 7852-7, 7853-5, VZVG2 #### [facility] CLIA [id number] [address] [place] [address] [place] AMERICAReagin and Treponema pallidum IgG and IgM [Interp]on 04-02-2024T. pallidum IgG+IgM IA Ql (S) Non-ReactiveNormalNonreIntermountain HealthcareComment on above:Order Comment: Specimen Type: BLOOD SPECIMEN Ordering Facility: [facility] Address: [address] [place], [place] [address]Performed By: #### 28823-2, 5195-3, 98537-5, 73572-1 #### [facility] CLIA [id number] [address] [place] [address] [place] AMERICAReagin+T pallidum IgG+IgM SerPl-Impon 26-74-6049Fvskzn and Treponema pallidum IgG and IgM [Interp]Cannot exclude recent Treponemal infection if specimen collected within 7-10 days after appearance of suspect lesions or 2-3 weeks after an exposure. Clinical correlation is required.NormalLayton HospitalComment on above:Order Comment: Specimen Type: BLOOD SPECIMEN Ordering Facility: [facility] Address: [address] [place], [place] [address]Performed By: #### 49207-3, 5195-3, 20817-9, 41706-9 #### [facility] CLIA [id number] [address] [place] [address] [place] AMERICATYPE + SCREEN PRENATALon 56-54-4512JSPBVsxphnCnba HospitalComment on above:Order Comment: Specimen Type: BLOOD SPECIMEN Ordering Facility: [facility] Address: [address] [place], [place] [address]Performed By: #### TSPN #### [facility] CLIA [id number] [address] [place] [address] [facility] HIGHLANDSRh Nom (Bld)[facility] Comment on above:Order Comment: Specimen Type: BLOOD SPECIMEN Ordering Facility: [facility] Address: [address] [place], [place] [address]Performed By: #### TSPN #### [facility] [place] [id number] [facility] [address] [facility] SYSTEMTYPE AND SCREEN NIHZNFJVOU30/19/2024 23:[address] [place], [place] [address]Comment on above:Order Comment: Specimen Type: BLOOD SPECIMEN Ordering Facility: [facility] Address: [address] [place], [place] [address]Performed By: #### TSPN #### [facility] [id number] [place] [id number] [facility] HIGHLANDSVARICELLA ZOSTER IGGon 04-02-2024 VARICELLA ZOSTER IGG, QUALPositiveNoalPositiveLayton HospitalComment on above: Order Comment: Specimen Type: BLOOD SPECIMEN Ordering Facility: [facility] Address: [address] [place], [place] [address]Result Comment: The result suggests recent or past exposure to Varicella-Zoster virus or chickenpoxvaccination or zoster vaccination. Positive result may also be seen due to presence of passively-transferred antibodies. Please correlate with patient's history. Performed By: #### [id number] #### [facility] CLIA [id number] [address] [place] [address] [id number] STATES OF AMERICACoding Summaryon 03-20-2024 Coding SummaryHTMLBase 64 EbjfgxhaEJu4gPq+PGhlYWQ+BY2AZLLzO57rnIXlhX8zG2BXTMtCQcspEGECNKnBSaVkwlWdRB6vlYOz ZXJu [file] JSc (more content not included)...[facility] HospitalProvider Orderson 01-08-4182Mqikpnbh [id number]#1.00OTGTIFF [facility].Auto Diff 1on 39-35-6401Btzl Cannon %3 %Normal1-12[facility] HospitalComment on above:Performed By: #### [id number], [id number], [id number] #### [facility] (DEFAULT) [address] [place] [address] 37177Kkyf Abs#0.0 m76Ifwclx2.0-0.2[facility] HospitalComment on above:Performed By: #### [id number], [id number], [id number] #### [facility] (DEFAULT) [address] [place] [address] 57253Zhhdxbfgj/100 WBC (Bld)0.3 %Normal0.2-2.0[facility] Comment on above:Performed By: #### [id number], 2475550, [id number] #### [facility] (DEFAULT) [address] [place] [address] 82795Mne Abs#0.0 x71Fcglev1.0-0.4[facility] HospitalComment on above:Performed By: #### [id number], 0654482, 7557982 #### [facility] (DEFAULT) [address] [place] [address] 48560Rqialfgoixt/100 WBC (Bld)0.1 %Low0.9-4.0[facility] Comment on above:Performed By: #### [id number], [id number], [id number] #### [facility] (DEFAULT) [address] [place] [address] 80205Aayem Abs#1.5 i09Zflauz0.3-2.9[facility] HospitalComment on above:Performed By: #### [id number], 2055962, [id number] #### [facility] (DEFAULT) [address] [place] [address] 11936Hcdyjackpal/100 WBC (Bld)16 %Mpwtaj24-30Gtoeiele Hospital Comment on above:Performed By: #### [id number], 0822097, 5865064 #### [facility] (DEFAULT) [address] [place] [address] 78473Jejp Abs#0.3 n29Cognpw2.0-0.8[facility] HospitalComment on above:Performed By: #### [id number], 9559931, 8245706 #### [facility] (DEFAULT) [address] [place] [address] 40471Ldgn Abs#7.8 b04Yxfukr7.5-9.2[facility] HospitalComment on above:Performed By: #### [id number], 8713547, 8723803 #### [facility] (DEFAULT) [address] [place] [address] 97479Jdgvyayvgqj/100 WBC (Bld)81 %Zwzvge88-47Uycermjo Hospital Comment on above:Performed By: #### [id number], 6849865, 9381948 #### [facility] (DEFAULT) [address] [place] [address] 05741VVO w/ Auto Diffon 85-09-7762Rnwlbpmxozz distribution width (RBC) [Ratio]13.9 %Tynoee30.5-15.0[facility] HospitalComment on above: Performed By: #### [id number], 0395041, 9612660 #### [facility] (DEFAULT) [address] [place] [address] 21228Hcphxptvqk (Bld) [Volume fraction]45.3 %High33.7-40.4 [facility] HospitalComment on above:Performed By: #### [id number], 5183813, 2628281 #### [facility] (DEFAULT) [address] [place] [address] 99203Rbkbgndxuf (Bld) [Mass/Vol]15.5 g/dUYkgnmc93.3-15.9 [facility] HospitalComment on above:Performed By: #### [id number], 6368065, 6349405 #### [facility] (DEFAULT) [address] [place] [address] 72360Ctg Diff?AutoInvalid Interpretation CodeParkwood Hospital Comment on above:Performed By: #### [id number], 8988649, 1548909 #### [facility] (DEFAULT) [address] [place] [address] 04895ZHE (RBC) [Entitic mass]29 xxOzcjyx08-75Ufkfwzvf Hospital Comment on above:Performed By: #### [id number], 7882399, 2003369 #### [facility] (DEFAULT) [address] [place] [address] 77110OKNQ (RBC) [Mass/Vol]34 g/cBQnmdib46-43Jraspxhn Hospital Comment on above:Performed By: #### [id number], 0643365, 4835559 #### [facility] (DEFAULT) [address] [place] [address] 88679ZRX (RBC) [Entitic vol]86 wMWwixxo76-310Yxdyuzuy Hospital Comment on above:Performed By: #### [id number], 6829679, 6152585 #### [facility] (DEFAULT) [address] [place] [address] 82404Rnlujenb496 q97Txkrjb760-376Irampvii HospitalComment on above:Performed By: #### 16489237, 9702911, 2497995 #### [facility] (DEFAULT) [address] [place] [address] 16120Ysrsbvoi mean volume (Bld) [Entitic vol]6.8 fLNormal 6.3-10.2[facility] HospitalComment on above:Performed By: #### [id number], 6378083, 4196310 #### [facility] (DEFAULT) [address] [place] [address] 10265JFK9.28 s94Jqpant9.70-5.30[facility] HospitalComment on above:Performed By: #### [id number], 8030945, 4236545 #### [facility] (DEFAULT) [address] [place] [address] 67127WFC4.6 s76Jkyguj9.5-10.5[facility] HospitalComment on above: Performed By: #### [id number], 1242364, 1139062 #### [facility] (DEFAULT) [address] [place] [address] 14830Oaeknaqwma 08-09-7431Pmizmqtq [Mass/Vol]20.6 ng/mLNormal 12.0-150.0[facility] HospitalComment on above:Performed By: #### [id number], 6159318, 9826806 #### [facility] (DEFAULT) [address] [place] [address] 40846Ojmr Levelon 05-78-0919Lzgn [Mass/Vol]61.0 ug/dLNormal 28.0-170.0[facility] HospitalComment on above:Performed By: #### [id number] ####[facility] (DEFAULT)[address] [place] [address] [id number] ID: [id number] Author: IGNACIO GUY MD Service: ? Author [...] for three cycles. They will meet with MANAGER PAPER to review the IUI checklist and sign consents. I spent a total of 45 minutes on the date of the service which included preparing to see the patient, gcja-sy-sibg patient care, completing clinical documentation, counseling and educating the patient/family/caregiver, and ordering medications, tests, or procedures. 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 They will meet with MANAGER PAPER to review the IUI checklist and sign consents. I spent a total of 45 minutes on the date of the service which included preparing to see the patient, paok-sf-kblo patient care, com (more content not included)...NormalOhioHealth Van Wert HospitalP,APTIMA HPV,AGE GDLNon 02-28-2024 AGE GDLN ACOG TESTINGNote.NOMS HealthcareComment on above:TESTS RESULT FLAG UNITS REF RANGE LAB Clinician Provided Cytology Information Source.............Cervix;Endocervix No. of containers..01 ThinPrep Vial Age Algo ACOG Ezequiel... FLAG LEGEND: L-Low Normal,H-High Normal,LL-Alert Low,HH-Alert High <-Panic Low,>-Panic High,A-Abnormal,AA-Critical Abnormal Performed at: 01 =G [facility] [address] [place] [address] Dagmar Love MD, IGP, RFX APTIMA HPV ASCUNote.NOMS HealthcareComment on above:TESTS RESULT FLAG UNITS REF RANGE LAB DIAGNOSIS: 02 NEGATIVE FOR INTRAEPITHELIAL LESION OR MALIGNANCY. Specimen adequacy: 02 Satisfactory for evaluation. Endocervical and/or squamous metaplastic cells (endocervical component) are present. Performed by: 02 Edel Sewell, Rigging Foreman ([facility]) . 02 Note: Note 02 [...] High,A-Abnormal,AA-Critical Abnormal Performed at: 02 WB [facility] [address] [place] [address] Dagmar Love MD, Performed at: =G - [facility] [id number] Director Inbound Sales: Dagmar Love MD, Phone: [phone] Performed at: [facility] [id number] Director Inbound Sales: Dagmar Love MD, Phone: [phone] BRUSH-SPATULA CERVIX ENDOCERVIX [facility] Summaryon 04-64-3008Ivhswk SummaryHTMLBase 64 RgydflltPMx6mTw+PGhlYWQ+FN7MYPZfY62cwNItwF9bJ2KGTRgCBitbNTIBKDvGQcYgiaTbSZ9llWKz ZXJu [file] [facility] (more content not included)...[facility] papilloma virus 16+18+31+33+35+39+45+51+52+56+58+59+66+68 DNA [Presence] in Addi 03-24-0782BJF 16+18+31+33+35+39+45+51+52+56+58+59+66+68 DNA Probe+sig amp Ql (Cvx)Human papilloma virus 16+18+31+33+35+39+45+51+52+56+58+59+66+68 DNA [Presence] in Cer. [facility] HospitalComment on above:TESTS RESULT FLAG UNITS REF RANGE LAB DIAGNOSIS: 02 NEGATIVE FOR INTRAEPITHELIAL LESION OR MALIGNANCY.Specimen adequacy: 02 Satisfactory forevaluation. Endocervical and/or squamous metaplastic cells (endocervical component) are present.Performed by: 02 Edel Sewell, Rigging Foreman ([facility]). 02Note: Note 02 The Pap smear [...] <-Panic Low,>- Panic High,A-Abnormal,AA-Critical Abnormal Performed at:[address] [address] Dagmar Love MD, Xlqvbbhza at: =G - [facility] [id number] Director: Dagmar Love MD, Phone: [phone] at: [facility] [address] [id number] Director: Dagmar Love MD, Phone: [phone] Panel Informationon 96-78-2656Amtfveqjo Lab Test Patient AgeNote.The Jewish HospitalComment on above:TESTS RESULT FLAG UNITS REF RANGE LAB Clinician Provided Cytology Information Source.............Cervix;Endocervix No. of containers..01 ThinPrep VialAge Olafo ERNESTINE Ezequiel... FLAG LEGEND: L-Low Normal,H-High Normal,LL-Alert Low,HH-Alert High <-Panic Low,>-Panic High,A- Abnormal,AA-Critical Abnormal Performed a t:01 =G [address] [address] Dagmar Love MD, .Auto Diff 1on 08-46-6816Ilij Cannon %6 %Normal1-12 [facility] HospitalComment on above:Performed By: #### [id number] #### [facility] (DEFAULT) [address] [place] [address] 41471Urmz Abs#0.0 x01Xqgvqz0.0-0.2[facility] HospitalComment on above:Performed By: #### [id number] #### [facility] (DEFAULT) [address] [place] [address] 64966Pzlvqpqju/100 WBC (Bld)0.3 %Normal0.2-2.0MaUniversity Hospitals [facility] Comment on above:Performed By: #### [id number] #### [facility] (DEFAULT) [address] [place] [address] 74787Ooj Abs#0.2 s41Htldta1.0-0.4[facility] HospitalComment on above:Performed By: #### [id number] #### [facility] (DEFAULT) [address] [place] [address] 28640Bukxkebympp/100 WBC (Bld)3.4 %Normal0.9-4.0[facility] HospitalComment on above:Performed By: #### [id number] #### [facility] (DEFAULT) [address] [place] [address] 38448Kudvk Abs#2.4 p22Qvwdos0.3-2.9[facility] HospitalComment on above:Performed By: #### [id number] #### [facility] (DEFAULT) [address] [place] [address] 55082Mdcnzgxmhoi/100 WBC (Bld)34 %Tbngrl40-98Idljubnr Hospital Comment on above:Performed By: #### [id number] #### [facility] (DEFAULT) [address] [place] [address] 27087Sqlz Abs#0.4 f28Jbjcmz3.0-0.8[facility] HospitalComment on above:Performed By: #### [id number] #### [facility] (DEFAULT) [address] [place] [address] 70071Wtqf Abs#4.0 b91Vxtsfo0.5-9.2[facility] HospitalComment on above:Performed By: #### [id number] #### [facility] (DEFAULT) [address] [place] [address] 41262Treafjdnumr/100 WBC (Bld)56 %Mnuedy15-34Edkhpgiy Hospital Comment on above:Performed By: #### [id number] #### [facility] (DEFAULT) [address] [place] [address] 33632ZOI w/ Auto Diffon 93-78-7753Eyzyhjpkluo distribution width (RBC) [Ratio]14.0 %Kafcce92.5-15.0[facility] HospitalComment on above: Performed By: #### [id number] #### [facility] (DEFAULT) [address] [place] [address] 27081Jcxxpnpsvq (Bld) [Volume fraction]41.7 %High33.7-40.4 [facility] HospitalComment on above:Performed By: #### [id number] #### [facility] (DEFAULT) [address] [place] [address] 96414Optcftuhpk (Bld) [Mass/Vol]14.1 g/rIQllacz80.3-15.9 [facility] HospitalComment on above:Performed By: #### [id number] #### [facility] (DEFAULT) [address] [place] [address] 68382Gze Diff?AutoInvalid Interpretation CodeParkwood Hospital Comment on above:Performed By: #### [id number] #### [facility] (DEFAULT) [address] [place] [address] 95942GKA (RBC) [Entitic mass]29 bsHemtcj76-23Bqxwipkl Hospital Comment on above:Performed By: #### [id number] #### [facility] (DEFAULT) [address] [place] [address] 50431PPKE (RBC) [Mass/Vol]34 g/fJSbkqrg30-37Lyrgfxkb Hospital Comment on above:Performed By: #### [id number] #### [facility] (DEFAULT) [address] [place] [address] 40120YQX (RBC) [Entitic vol]86 pPIivslh02-738Ptumoxpp Hospital Comment on above:Performed By: #### [id number] #### [facility] (DEFAULT) [address] [place] [address] 05209Woewrdbd565 g15Ljudxd142-280Wggvqhrr HospitalComment on above:Performed By: #### [id number] #### [facility] (DEFAULT) [address] [place] [address] 59588Nanjjbea mean volume (Bld) [Entitic vol]6.8 fLNormal 6.3-10.2[facility] HospitalComment on above:Performed By: #### [id number] #### [facility] (DEFAULT) [address] [place] [address] 66749BNK6.84 v44Tfjagu8.70-5.30[facility] HospitalComment on above:Performed By: #### [id number] #### [facility] (DEFAULT) [address] [place] [address] 53020FNL3.1 y34Vevncs6.5-10.5[facility] HospitalComment on above: Performed By: #### [id number] #### [facility] (DEFAULT) [address] [place] [address] 14679Qmrvbvzqoh 39-87-6049Soqcrlge [Mass/Vol]15.8 ng/mLNormal 12.0-150.0[facility] HospitalComment on above:Performed By: #### [id number], 0883433, 7206344 #### [facility] (DEFAULT) [address] [place] [address] 98073Iege Profileon 54-18-7430Luzs [Mass/Vol]72.0 ug/dLNormal 28.0-170.0[facility] HospitalComment on above:Performed By: #### [id number], 7462050, [id number] #### [facility] (DEFAULT) [address] [place] [address] 79786Yccs Sat19 %Bxw25-59Mfapinfo HospitalComment on above: Performed By: #### [id number], 5022947, 9707896 #### [facility] (DEFAULT) [address] [place] [address] 90234UDAX790 mcg/mWFctfjy618-790Qxyueqlj HospitalComment on above:Performed By: #### [id number], 0008556, 1906375 #### [facility] (DEFAULT) [address] [place] [address] 88687Osuztryrbbu [Mass/Vol]274.6 mg/tZBhzwki573.0-382.0[facility] HospitalComment on above:Performed By: #### [id number], 1831448, 8958694 #### [facility] (DEFAULT) [address] [place] [address] 97464Gxruln Summaryon 52-95-1592Zkianz SummaryMLBase 64 BzgmvemcZVh4oEc+PGhlYWQ+LQ2DGXVjM50jiBEjwE2xA4TUWJjIPxybDRXVVYmWJiAzyyPuIL1jpLWk ZXJu [file] c (more content not included)...White HospitalAmphetamine Screen Ql (U)Ordered By: Andry Lacy on 02-20-6840Tnioagwvcnlh Ql (U)Amphetamines screenNegativeFirelands Regional Medical CenterAmphetamines Ql (U)Negative NegativeThe Jewish HospitalBarbiturates [Presence] in Urine by Screen methodOrdered By: Andry Lacy on 54-27-5672Basjytyyiang Screen Ql (U) NegativeNegativeThe Jewish HospitalBarbiturates Screen Ql (U) Barbiturates [Presence] in Urine by Screen methodNegPremier Health Miami Valley HospitalBenzodiazepines Screen Ql (U)Ordered By: Andry Lacy on 59-78-0697Lbtrlrmdcrgpypr Ql (U)PositiveHighNegPremier Health Miami Valley HospitalBenzodiazepines Ql (U)Benzodiazepines [Presence] in Urine by Screen method HighNegPremier Health Miami Valley HospitalBenzoylecgonine [Presence] in Urine by Screen methodOrdered By: Andry Lacy on 45-41-4689Zhtmvhvaqnebvhy Screen Ql (U)NegativeNegPremier Health Miami Valley HospitalBenzoylecgonine Screen Ql (U)Benzoylecgonine [Presence] in Urine by Screen methodNegPremier Health Miami Valley HospitalCannabinoids [Presence] in Urine by Screen methodOrdered By: Andry Lacy on 84-69-8110Cqahgqhexgce Screen Ql (U)PositiveHighChildren'S Hospital For RehabilitationComment on above:These are unconfirmed results and should not be used for legal purposes. Drug Cut-Off Concentration: AMPH 1000 ng/mL LUIS ANTONIO 200 ng/mL JOHN 200 ng/mL COCM 300 ng/mL OP 300 ng/mL PCP 25 ng/mL THC 20 ng/mLCannabinoids Screen Ql (U)Cannabinoids [Presence] in Urine by Screen methodHighNegPremier Health Miami Valley HospitalComment on above:These are unconfirmed results and should not be used for legal purposes. Drug Cut-Off Concentration: AMPH 1000 ng/mL LUIS ANTONIO 200 ng/mL JOHN 200 ng/mL COCM 300 ng/mL OP 300 ng/mL PCP 25 ng/mL THC 20 ng/mLHCG ( test) IA.rapid Ql (U)Ordered By: Andry Lacy on 13-68-6758MPJ ( test) Ql (U)NegativeThe Jewish HospitalHCG ( test) Ql (U)Urine human chorionic gonadotropin (hCG) detection by immunoassayThe Jewish Hospital Opiates [Presence] in Urine by Screen methodOrdered By: Andry Lacy on 64-27-2956Voevbqf Screen Ql (U)NegativeNegativeThe Jewish Hospital Opiates Screen Ql (U)Opiates [Presence] in Urine by Screen methodNegative The Jewish HospitalPhencyclidine Screen Ql (U)Ordered By: Andry Lacy on 75-51-2920Wvishtcdrejlw Ql (U)NegativeNegativeThe Jewish HospitalPhencyclidine Ql (U)Phencyclidine [Presence] in Urine by Screen methodNegativeThe Jewish HospitalAlanine aminotransferase [Enzymatic activity/volume] in Serum or PlasmaOrdered By: Romeo Santana on 30-20-0853CSF [Catalytic activity/Vol]14 U/L7-52The Jewish HospitalAlbumin [Mass/volume] in Serum or Plasma by Bromocresol green (BCG) dye binding methoOrdered By: Romeo Santana on 13-68-8753Jdjkriv BCG dye [Mass/Vol]4.6 g/dL3.5-5.7FSt. Vincent HospitalAlkaline phosphatase [Enzymatic activity/volume] in Serum or PlasmaOrdered By: Romeo Santana on 88-87-9607DSQ [Catalytic activity/Vol]41 U/N63-118WaciskrcdThe Jewish HospitalAspartate aminotransferase [Enzymatic activity/volume] in Serum or PlasmaOrdered By: Romeo Santana on 89-37-5895MCT [Catalytic activity/Vol]13 U/F83-82AcapdgynvThe Jewish HospitalBasophils Auto (Bld) [#/Vol]Ordered By: Romeo Santana on 11-28-2023 Basophils (Bld) [#/Vol]0.0 10*3/uL0.0-0.2FSt. Vincent Hospital Basophils/100 WBC Auto (Bld)Ordered By: Romeo Santana on 77-63-4227Nlxdgrwxy/100 WBC (Bld)0.3 %.The Jewish HospitalBilirubin.total [Mass/volume] in Serum or PlasmaOrdered By: Romeo Santana on 78-94-2880Fhvoqzlpr [Mass/Vol]0.5 mg/dL0.3-1.0The Jewish HospitalCalcium [Mass/volume] in Serum or PlasmaOrdered By: Romeo Santana on 27-40-7080Qdffgde [Mass/Vol]9.4 mg/dL8.6-10.3 The Jewish HospitalCarbon dioxide, total [Moles/volume] in Serum or PlasmaOrdered By: Romeo Santana on 88-95-9382YQ5 [Moles/Vol]27.8 mmol/L 21.0-31.0The Jewish HospitalChloride [Moles/volume] in Serum or PlasmaOrdered By: Romeo Santana on 09-12-4929Xglrygel [Moles/Vol]106 mmol/L98-107 The Jewish HospitalCreatinine [Mass/volume] in Serum or Plasma Ordered By: Romeo Santana on 23-02-8421Cknwxeuepw [Mass/Vol]0.62 mg/dL0.60-1.20 The Jewish HospitalEosinophils Auto (Bld) [#/Vol]Ordered By: Romeo Santana on 57-99-6695Psyzjhzvyve (Bld) [#/Vol]0.2 10*3/uL0.0-0.45The Jewish HospitalEosinophils/100 WBC Auto (Bld)Ordered By: Romeo Santana on 60-95-0959Uikvfccnzun/100 WBC (Bld)3.5 %.[facility] Erythrocyte distribution width Auto (RBC) [Ratio]Ordered By: Romeo Santana on 32-45-0781Szuxqzdaxec distribution width (RBC) [Ratio]14.0 %11.9-15.3FSt. Vincent HospitalGlobulin Calc (S) [Mass/Vol]Ordered By: Romeo Santana on 15-05-1551Jihsdbqo (S) [Mass/Vol]2.0 g/dLThe Jewish Hospital Glucose [Mass/volume] in Serum or PlasmaOrdered By: Romeo Santana on 11-28-2023 Glucose [Mass/Vol]76 mg/uR95-495XwoeirpjpThe Jewish HospitalHematocrit Auto (Bld) [Volume fraction]Ordered By: Romeo Santana on 83-51-9754Hfoufbwozs (Bld) [Volume fraction]40.1 %34.0-46.4FSt. Vincent HospitalHemoglobin [Mass/volume] in BloodOrdered By: Romeo Santana on 53-39-6315Qkzkcahzbe (Bld) [Mass/Vol]13.6 g/dL11.8-15.4FSt. Vincent HospitalLeukocytes [#/volume] corrected for nucleated erythrocytes in Blood by Automated coun Ordered By: Romeo Santana on 58-17-8540BOF corrected for nucl RBC Auto (Bld) [#/Vol]6.4 10*3/uL3.8-11.6FSt. Vincent HospitalLymphocytes Auto (Bld) [#/Vol]Ordered By: Romeo Santana on 18-26-3665Qsnnyqkcniu (Bld) [#/Vol]2.4 10*3/uL1.00-4.8The Jewish HospitalLymphocytes/100 WBC Auto (Bld) Ordered By: Romeo Santana on 02-91-7635Pfzmzuhidxl/100 WBC (Bld)38.3 %.The Jewish HospitalMCH Auto (RBC) [Entitic mass]Ordered By: Romeo Santana on 50-09-3104IRC (RBC) [Entitic mass]29.3 pg24.7-34.3FSt. Vincent HospitalMCHC Auto (RBC) [Mass/Vol]Ordered By: Romeo Santana on 88-67-9529YKVW (RBC) [Mass/Vol]33.8 g/dL32.0-35.0The Jewish HospitalMCV Auto (RBC) [Entitic vol]Ordered By: Romeo Santana on 95-55-2147STY (RBC) [Entitic vol]86.7 lA28-308QoegjahglThe Jewish HospitalMonocytes Auto (Bld) [#/Vol]Ordered By: Romeo Santana on 40-55-9388Cdichpmjz (Bld) [#/Vol]0.4 10*3/uL0.0-0.8The Jewish HospitalMonocytes/100 WBC Auto (Bld)Ordered By: Romeo Santana on 51-85-9595Eigubdeip/100 WBC (Bld)5.8 %.[facility] Neutrophils Auto (Bld) [#/Vol]Ordered By: Romeo Santana on 23-25-5264Hfgyyrusmbs (Bld) [#/Vol]3.3 10*3/uL1.8-7.7FSt. Vincent HospitalNeutrophils/100 WBC Auto (Bld)Ordered By: Romeo Santana on 37-34-3476Hhikownetty/100 WBC (Bld) 52.1 %.[facility] HospitalNo Panel InformationOrdered By: Romeo Santana on 50-69-7964Shkqzarqj GFR (CKD-EPI)> 60.0 mL/MinThe Jewish HospitalPharmacy Creatinine Clearance (ChemN/AFSt. Vincent HospitalNucleated erythrocytes [Presence] in Blood by Automated countOrdered By: Romeo Santana on 76-95-3361Bvujjneyq RBC Auto Ql (Bld)0.0 /100{WBC}0-0.5FSt. Vincent HospitalPlatelet mean volume Auto (Bld) [Entitic vol]Ordered By: Romeo Santana on 80-15-0640Xpckgtbt mean volume (Bld) [Entitic vol]6.8 fL6.3-10.7 [facility] HospitalPlatelets Auto (Bld) [#/Vol]Ordered By: Romeo Santana on 23-89-8590Hrhuzekwa (Bld) [#/Vol]159 10*3/pQ680-859HxypimjziThe Jewish HospitalPotassium [Moles/volume] in Serum or PlasmaOrdered By: Romeo Santana on 18-80-7189Jzolrgqjb [Moles/Vol]4.2 mmol/L3.5-5.1FSt. Vincent HospitalProtein [Mass/volume] in Serum or PlasmaOrdered By: Romeo Santana on 94-19-7391Cqojuiv [Mass/Vol]6.6 g/dL6.4-8.9[facility] RBC Auto (Bld) [#/Vol]Ordered By: Romeo Santana on 00-26-9210ONT (Bld) [#/Vol] 4.63 10*6/uL3.60-5.00[facility] Hospitalerum or plasma albumin/globulin mass ratioOrdered By: Romeo Santana on 11-28-2023 Albumin/Globulin [Mass ratio]2.3 {ratio}[facility] Hospitalerum or plasma anion gap determinationOrdered By: Romeo Santana on 80-41-0274Dmeyx gap [Moles/Vol]10.4 mmol/L6.0-15.0[facility] Hospitalodium [Moles/volume] in Serum or PlasmaOrdered By: Romeo Santana on 35-33-4046Npmiey [Moles/Vol]140 mmol/Z210-589WdytvxqktThe Jewish HospitalUrea nitrogen [Mass/volume] in Serum or PlasmaOrdered By: Romeo Santana on 48-06-7285Vabu nitrogen [Mass/Vol]7 mg/dL7-25The Jewish HospitalWBC Auto (Bld) [#/Vol]Ordered By: Romeo Santana on 89-30-6336WND (Bld) [#/Vol]6.4 10*3/uL 3.8-11.6FSt. Vincent HospitalCoding Summaryon 15-15-1955Ptzkqs SummaryHTMLBase 64 JbbpanqqOYk9zBz+PGhlYWQ+TW9HQTSlA85rjJYefJ3hD4XLFCxHBdyqQPYTIVnRQwXsabMeNI7yaOOt ZXJu [file] b3J (more content not included)...NormalMagruder HospitalCoding SummaryHTMLBase 64 AbemlxwaNXt0bEq+PGhlYWQ+LT4OOXDaP46xeBMbqI9uT7GIBQmXKgzePKCGCOcAYpOozhPmNH4beGQq ZXJu [file] b3J (more content not included)...NormalCleveland Clinic Foundation HospitalProvider Orderson 04-22-8041Hymmogif [id number]#1.00OTGTIFF White HospitalChlamydia/GC Amplification LCon 68-81-9233Spqutdysn trachomatis, AC LCNegativeInvalid Interpretation CodeNegMetroHealth Parma Medical Center Comment on above:Performed By: #### [id number] #### [facility] (DEFAULT) [address] [place] [address] 25430Mlqnmbicy gonorrhoeae, AC LCNegativeInvalid Interpretation [facility] CenterComment on above:Result Comment: Performed At: =G Lab[address] [place], [place] [id number] Ivan Davila MD Ph:[phone] By: #### [id number] #### [facility] (DEFAULT) [address] [place] [address] 77914Qhhsubn Formson 52-96-3917Euiiled Forms [id number]#1.00OTGTIFFWhite HospitalED Note-Nursingon 18-16-1670EQ Note-NursingFluconazole 150mg tab called into [facility] Patient contacted and notified of the results of her culture and the prescription that was sent forher. Instructions on how to take the medication was given, patient verbalized understanding [facility].Auto Diff 102-48-8062Hhgl Cannon %9 %Normal1-12[facility] Comment on above:Performed By: #### [id number], [id number], [id number] #### [facility] (DEFAULT) [address] [place] [address] 26946Iblk Abs#0.0 c39Mswkqg1.0-0.2MPremier Health Miami Valley Hospital NorthComment on above:Performed By: #### [id number], [id number], [id number] #### [facility] (DEFAULT) [address] [place] [address] 07259Mocgfmsbs/100 WBC (Bld)0.2 %Normal0.2-2.0[facility] Comment on above:Performed By: #### [id number], [id number], [id number] #### [facility] (DEFAULT) [address] [place] [address] 41155Fwq Abs#0.3 v91Ljtixs3.0-0.4[facility] HospitalComment on above:Performed By: #### [id number], [id number], 4487732 #### [facility] (DEFAULT) [address] [place] [address] 22714Cvnnhdlulox/100 WBC (Bld)9.0 %High0.9-4.0[facility] Comment on above:Performed By: #### [id number], 9887925, [id number] #### [facility] (DEFAULT) [address] [place] [address] 57108Tlwtk Abs#0.4 g97Abn0.3-2.9[facility] HospitalComment on above:Performed By: #### [id number], 7796547, 4736635 #### [facility] (DEFAULT) [address] [place] [address] 33083Nolnjxpiybd/100 WBC (Bld)12 %Vcb47-29OjedecbaParkwood Hospital Comment on above:Performed By: #### [id number], [id number], 7284819 #### [facility] (DEFAULT) [address] [place] [address] 06440Gpai Abs#0.3 v72Kvtnul5.0-0.8[facility] HospitalComment on above:Performed By: #### [id number], 1204612, 8111253 #### [facility] (DEFAULT) [address] [place] [address] 53995Ucqy Abs#2.4 x47Senfev4.5-9.2Mmer[facility] HospitalComment on above:Performed By: #### [id number], [id number], [id number] #### [facility] (DEFAULT) [address] [place] [address] 81052Naosofmobdh/100 WBC (Bld)70 %Dkmbku30-05Ddyuifzp Hospital Comment on above:Performed By: #### [id number], 8171511, 7769606 #### [facility] (DEFAULT) [address] [place] [address] 94809D Genitalon 11-02-2023 GenitalHeavy growth of Yeast No CARLOS performed on this organism No growth of GC at 3 days. 4+ Gram Positive Rods Few Yeast No WBC's seen. Gram Negative Diplococci not seen.White HospitalComment on above: Performed By: #### [id number] #### [facility] (DEFAULT) [address] [place] [address] 05597BML w/ Auto Diffon 36-37-8392Zdkbnhponaw distribution width (RBC) [Ratio]13.7 %Kcwhjq82.5-15.0[facility] HospitalComment on above: Performed By: #### [id number], 6876382, 6833147 #### [facility] (DEFAULT) [address] [place] [address] 34491Pxbjcvuotr (Bld) [Volume fraction]40.5 %High33.7-40.4 [facility] HospitalComment on above:Performed By: #### [id number], 7571485, 6606207 #### [facility] (DEFAULT) [address] [place] [address] 37476Bhlvdtptnt (Bld) [Mass/Vol]13.7 g/sTQwmqwu57.3-15.9 [facility] HospitalComment on above:Performed By: #### [id number], 7655830, 1118699 #### [facility] (DEFAULT) [address] [place] [address] 53125Dqh Diff?AutoInvalid Interpretation [facility] Comment on above:Performed By: #### [id number], 7635646, [id number] #### [facility] (DEFAULT) [address] [place] [address] 28727PTQ (RBC) [Entitic mass]29 wiPlqicc96-64Bzevdkur Hospital Comment on above:Performed By: #### [id number], 1143586, 4172142 #### [facility] (DEFAULT) [address] [place] [address] 29767GGEN (RBC) [Mass/Vol]34 g/aZCguyvi46-09Ykmqpwgx Hospital Comment on above:Performed By: #### [id number], 6170501, 3836796 #### [facility] (DEFAULT) [address] [place] [address] 00494EXB (RBC) [Entitic vol]85 pVZgppgb49-592Mknxufge Hospital Comment on above:Performed By: #### [id number], 9618059, 8732870 #### [facility] (DEFAULT) [address] [place] [address] 62556Unjptlaf869 p34Uzt987-180Eqdktpvk HospitalComment on above:Performed By: #### [id number], 3893891, 6371954 #### [facility] (DEFAULT) [address] [place] [address] 38374Dyodytzz mean volume (Bld) [Entitic vol]7.0 fLNormal 6.3-10.2MPremier Health Miami Valley Hospital NorthComment on above:Performed By: #### [id number], 0739220, 9505844 #### [facility] (DEFAULT) [address] [place] [address] 68471FIK1.74 r37Nacnkj5.70-5.30[facility] HospitalComment on above:Performed By: #### [id number], 8264808, 2226833 #### [facility] (DEFAULT) [address] [place] [address] 93963VLE6.5 q74Nhvoey9.5-10.5[facility] HospitalComment on above: Performed By: #### [id number], 7889345, 7349937 #### [facility] (DEFAULT) [address] [place] [address] 77800UWS Standardon 80-50-0816fJAV Non AA>60Invalid Interpretation [facility] CenterComment on above:Performed By: #### [id number], 9066352, 9444683 #### [facility] (DEFAULT) [address] [place] [address] 59038oWSW AA>60Invalid Interpretation [facility] Comment on above:Performed By: #### [id number], 8736783, 6358977 #### [facility] (DEFAULT) [address] [place] [address] 04120Batrfte [Mass/Vol]4.1 g/dLNormal3.5-5.0[facility] Comment on above:Performed By: #### [id number], 0102456, 6314954 #### [facility] (DEFAULT) [address] [place] [address] 02523Xbttedu/Globulin [Mass ratio]1.7 {ratio}Normal1.4-2.6 [facility] HospitalComment on above:Performed By: #### [id number], 3066781, 1719191 #### [facility] (DEFAULT) [address] [place] [address] 64707Wld Phos40 IU/GHxchwc11-72Zjbfrtbj HospitalComment on above:Performed By: #### [id number], 9175058, 7320013 #### [facility] (DEFAULT) [address] [place] [address] 44452PCP [Catalytic activity/Vol]20.0 U/XJudaqv24.0-54.0 [facility] HospitalComment on above:Performed By: #### [id number], 1778468, 9445479 #### [facility] (DEFAULT) [address] [place] [address] 75646Gsmra gap [Moles/Vol]9.5 mmol/LNormal5.0-19.0[facility] HospitalComment on above:Performed By: #### [id number], 5119836, 1652521 #### [facility] (DEFAULT) [address] [place] [address] 89006NXP [Catalytic activity/Vol]19 U/GItppqh71-80Atboucrw HospitalComment on above:Performed By: #### [id number], 4862132, 4503170 #### [facility] (DEFAULT) [address] [place] [address] 33288Wrjs Total0.7 mg/dLNormal0.3-1.2Mmer[facility] HospitalComment on above:Performed By: #### [id number], 8051375, 5534317 #### [facility] (DEFAULT) [address] [place] [address] 24679Jwsektz [Mass/Vol]8.4 mg/dLLow8.9-10.3Mmer[facility] Hospital Comment on above:Performed By: #### [id number], 4217487, 9014225 #### [facility] (DEFAULT) [address] [place] [address] 34500Byvmvyay [Moles/Vol]109 mmol/AGekrjt785-584Fvfwakpo HospitalComment on above:Performed By: #### [id number], 2356668, 4454489 #### [facility] (DEFAULT) [address] [place] [address] 82641PB5 [Moles/Vol]21 mmol/PHynlkn58-70Lrebgflb Hospital Comment on above:Performed By: #### [id number], 1133322, 9636440 #### [facility] (DEFAULT) [address] [place] [address] 63971Qxiiyvzskl [Mass/Vol]0.71 mg/dLNormal0.60-1.30[facility] HospitalComment on above:Performed By: #### [id number], 8576174, 6719486 #### [facility] (DEFAULT) [address] [place] [address] 35109Ghbyjyrr (S) [Mass/Vol]2.4 g/dLNormal1.5-4.3Mmer[facility] HospitalComment on above:Performed By: #### [id number], 8656179, 0923083 #### [facility] (DEFAULT) [address] [place] [address] 43706Pevghig [Mass/Vol]95.0 mg/uURqvsyv74.0-118.0[facility] HospitalComment on above:Performed By: #### [id number], 2740433, 0778421 #### [facility] (DEFAULT) [address] [place] [address] 65980Ggfdkfgocn220 mOsm/LInvalid Interpretation CodeCleveland Clinic Foundation HospitalComment on above:Performed By: #### [id number], 1753440, 8749947 #### [facility] (DEFAULT) [address] [place] [address] 93746Xxxgwluvj [Moles/Vol]3.5 mmol/LLow3.6-5.1M[facility] Hospital Comment on above:Performed By: #### [id number], 7315255, 1648640 #### [facility] (DEFAULT) [address] [place] [address] 49278Wfwegvt [Mass/Vol]6.5 g/dLNormal6.5-8.1MPremier Health Miami Valley Hospital North Comment on above:Performed By: #### [id number], 0397665, 6724528 #### [facility] (DEFAULT) [address] [place] [address] 63959Ezuetx [Moles/Vol]136.0 mmol/NXedasp828.0-144.0[facility] HospitalComment on above:Performed By: #### [id number], 4455847, 7619731 #### [facility] (DEFAULT) [address] [place] [address] 24101Lzae nitrogen [Mass/Vol]7 mg/dLLow8-26[facility] Comment on above:Performed By: #### [id number], 0944352, 4304107 #### [facility] (DEFAULT) [address] [place] [address] 74581Rqmn nitrogen/Creatinine [Mass ratio]9.8 mg/mgNormal 4.6-16.2MPremier Health Miami Valley Hospital NorthComment on above:Performed By: #### [id number], 8919236, 0227800 #### [facility] (DEFAULT) [address] [place] [address] 10441RO Abdomen/Pelvis w/ Contraston 75-98-3521LW Abdomen/Pelvis w/ ContrastEXAMINATION: CT Abdomen/Pelvis w/ Contrast, [...] Monteiro DO 11/02/23 3:37 pm Technologist: [facility]YAd[facility] Clinical Summaryon 91-62-6145YA Clinical SummaryC[facility] [address] [place] [address] [id number] ED Clinical Summary PERSON INFORMATION Name: JAZ SANDERS Age: 28 Years Sex: FEMALE : 1995 MRN: Acct#: Visit Reason: Abdominal pain; Nausea; FLANK/HIP PAIN, FEVER Arrival: 11/02/2023 07:57:28 Discharge: 11/02/2023 13:31:00 LOS: 000 05:34 Check In: 11/02/2023 07:57:28 Checkout:11/02/2023 13:31:00 Address: [facility] Marixa DAY [facility] [address] PCP: Amanda Ford CNP PROVIDER INFORMATION Provider [...] Follow-Up: With: Address: When: Amanda Ford CNP [address] [place] [address] Within 3 to 5 days DIAGNOSIS: 1:Hip pain Patient Understands: Yes - Patient/family/caregiver verbalizes understanding of instructions given Comment:[facility] Patient Summaryon 45-47-3837ES Patient Summary [facility] - Emergency Department [address] [place] [address] PATIENT DISCHARGE INSTRUCTIONS Patient Information Name: JAZ SANDERS Age: 28 Years Date of : 1995 Reason For Visit: Abdominal pain; Nausea; FLANK/HIP PAIN, FEVER Arrival Time: 11/02/2023 07:57:28 Primary Care Physician: Amanda Ford CNP Attending Physician: Narda Phillips MD Comment: Visit Diagnosis: Diagnoses This Visit Abdominal pain ([id number]) Hip pain (M25.559) Nausea (IFm5KBJ0gDdpZgSUk4oiod) The [facility] is open Tuesday through Tuesday from 9A [...] alcohol and/or drug addiction problems; contact the [facility] 08/11 Crisis Hotline -Text 6AYHR wc [phone]. If you received any narcotics, sedation, or [...] With: Address: When: Amanda Ford CNP [facility] [place] [address] Within 3 to 5 days Medication Information: The exam and treatment you received today in the [facility] Emergency Department were for an urgent problem and are not intended as complete care. It is important for you to follow up with a doctor, nurse practitioner, or physician?s kindergarten teacher assistant for ongoing care. If your symptoms [...] so we can reach you if necessary. [facility] Emergency Department has provided you with a complete list of medications post discharge. Please inform your inspector outside steam distribution/provider of your visit and for further instruction on these medications. Any specific questions regarding your chronic medications and dosages should be discussed with your primary care physician(s) and/or pharmacist. New Medications [facility] [address] [place], [place] [id number], [phone] cyclobenzaprine (cyclobenzaprine 10 mg oral tablet) 1 [...] Refills: 0. lidocaine topic (more content not included)...White HospitalExtra Green on 52-49-2620Jymd CollectedYesInvalid Interpretation [facility] Comment on above:Performed By: #### [id number], 6763298, [id number] #### [facility] (DEFAULT) [address] [place] [address] 70966Bwidxgblc Test Urine 1on 11-02-2023U PregNegativeAdena Fayette Medical CenterComment on above:Performed By: #### [id number] #### [facility] (DEFAULT) [address] [place] [address] 21232S Preg Internal ControlPassWhite HospitalComment on above:Performed By: #### [id number] #### [facility] (DEFAULT) [address] [place] [address] 09535VT Ugfov2co 40-10-6950XO BacteriaTraceWhite HospitalComment on above:Order Comment: Urinalysis Microscopic order added on by Sailogy Rules system.Performed By: #### [id number] #### [facility] (DEFAULT) [address] [place] [address] 14799QS Mucous1+White HospitalComment on above:Order Comment: Urinalysis Microscopic order added on by InMobi Expert Rules system. Performed By: #### [id number] #### [facility] (DEFAULT) [address] [place] [address] 57341HN RBCNone SeenClermont County Hospital HospitalComment on above: Order Comment: Urinalysis Microscopic order added on by InMobi Expert Rules system.Performed By: #### [id number] #### [facility] (DEFAULT) [address] [place] [address] 88199ZX Squam EpiFewNormPremier Health Upper Valley Medical Center HospitalComment on above: Order Comment: Urinalysis Microscopic order added on by InMobi Expert Rules system.Performed By: #### [id number] #### [facility] (DEFAULT) [address] [place] [address] 91976JU WBCNone SeenClermont County Hospital HospitalComment on above: Order Comment: Urinalysis Microscopic order added on by InMobi Expert Rules system.Performed By: #### [id number] #### [facility] (DEFAULT) [address] [place] [address] 00453NR w Culture if Ind Standardon 29-03-3917Mbvyquyqyc UA NormalCleveland Clinic Foundation HospitalComment on above:Performed By: #### [id number] #### [facility] (DEFAULT) [address] [place] [address] 87608Htcht (U)Dark YellowNoKettering Health Dayton HospitalComment on above:Performed By: #### [id number] #### [facility] (DEFAULT) [address] [place] [address] 74344Uzpegzh?Not IndicatedInvalid Interpretation CodeCleveland Clinic Foundation HospitalComment on above:Result Comment: Result created by rule GL_MAGR_ADD_UA_CULTPerformed By: #### [id number] #### [facility] (DEFAULT) [address] [place] [address] 75909Wahvkin (U) [Mass/Vol]NegativeClermont County Hospital Hospital Comment on above:Performed By: #### [id number] #### [facility] (DEFAULT) [address] [place] [address] 80442Nksahql Ql (U)TRACENormalMagruder HospitalComment on above:Performed By: #### [id number] #### [facility] (DEFAULT) [address] [place] [address] 02340Qtjbx?IndicatedInvalid Interpretation CodeMagruder HospitalComment on above:Result Comment: Result created by rule GL_MAGR_ADD_UA_MICROPerformed By: #### [id number] #### [facility] (DEFAULT) [address] [place] [address] 12591GD BilirubinMODERATEAbnormalMagrdunlap memorial hospital HospitalComment on above:Performed By: #### [id number] #### [facility] (DEFAULT) [address] [place] [address] 04112AC BloodNegativeNormalNEGATIVEMagrdunlap memorial hospital HospitalComment on above:Performed By: #### [id number] #### [facility] (DEFAULT) [address] [place] [address] 17589JV ClaritySL CLOUDYAbnormalCLEARMagrdunlap memorial hospital HospitalComment on above:Performed By: #### [id number] #### [facility] (DEFAULT) [address] [place] [address] 86527UN Leuk EstNegativeNormalNEGATIVECleveland Clinic Foundation HospitalComment on above:Performed By: #### [id number] #### [facility] (DEFAULT) [address] [place] [address] 80671TM NitriteNegativeNormalNEGATIVENdgrdunlap memorial hospital HospitalComment on above:Performed By: #### [id number] #### [facility] (DEFAULT) [address] [place] [address] 01931BR pH6.4Ngaevm7-6Pdsaflzt HospitalComment on above: Performed By: #### [id number] #### [facility] (DEFAULT) [address] [place] [address] 56677DJ Btqvwld63EsoxcviyTBVJSMGSZwtacixj HospitalComment on above:Performed By: #### [id number] #### [facility] (DEFAULT) [address] [place] [address] 14522GF Spec Grav>=1.029Dhwrqm0.001-1.035[facility] Comment on above:Performed By: #### [id number] #### [facility] (DEFAULT) [address] [place], [place] [address]CA Urobilinogen1.0 mg/dLNoal0.2-1.0[facility] Comment on above:Performed By: #### [id number] #### [facility] (DEFAULT) [address] [place] [address] 79675Kgxqh SourceClean CatchWhite HospitalComment on above:Performed By: #### [id number] #### [facility] (DEFAULT) [address] [place] [address] 11672Uzo Mount.on 42-82-1383Dkf [facility] Hospital - CincinnatiComment on above:Performed By: #### [id number] #### [facility] (DEFAULT) [address] [place] [address] 93345Jbrehs Summaryon 53-04-7106Hwvmmd SummaryHTMLBase 64 BlyctrjuQGp6bSw+PGhlYWQ+MM4MZUNdX51slGBatS9zP5JFMPvAOdbaVWKQUNdPWkHurhTpGE0yxHOc ZXJu [file] [facility] (more content not included)...White HospitalBasophils Auto (Bld) [#/Vol]on 46-94-4898Iwoiybnut (Bld) [#/Vol]0.0 x100.0-0.2FSt. Vincent HospitalBasophils/100 WBC Auto (Bld)on 10-77-8752Zhgebtvvm/100 WBC (Bld) 0.3 %0.2-2.0The Jewish HospitalEosinophils/100 WBC Auto (Bld)on 21-85-2725Mgdcdkvmqsd/100 WBC (Bld)2.7 %0.9-4.0[facility] Erythrocyte distribution width Auto (RBC) [Ratio]on 59-92-7194Oqzfkzymfuu distribution width (RBC) [Ratio]14.1 %11.5-15.0[facility] Hematocrit Auto (Bld) [Volume fraction]on 27-19-1118Lsvpnqsqwu (Bld) [Volume fraction]41.4 %High33.7-40.4FSt. Vincent HospitalHemoglobin [Mass/volume] in Bloodon 60-58-7634Ochicxbqxz (Bld) [Mass/Vol]14.0 g/dL11.3-15.9 The Jewish HospitalIron binding capacity [Mass/volume] in Serum or Plasmaon 05-86-9820Vcgp binding capacity [Mass/Vol]405 mcg/zTObcd989-872 The Jewish HospitalIron saturation [Mass Fraction] in Serum or Plasmaon 62-49-7589Iday saturation [Mass fraction]12 %Bxl90-71IkpxyljpvThe Jewish HospitalLaboratory - Chemistry and Chemistry - challengeon 08-69-7350Xvva [Mass/Vol]48.0 ug/dL28.0-170.0The Jewish HospitalTransferrin [Mass/Vol]289.2 mg/dL192.0-382.0The Jewish HospitalLeukocytes [#/volume] corrected for nucleated erythrocytes in Blood by Automated counon 66-13-0480TAM corrected for nucl RBC Auto (Bld) [#/Vol]6.4 x103.5-10.5FSt. Vincent HospitalLymphocytes Auto (Bld) [#/Vol]on 43-43-3141Rircxoyzjwb (Bld) [#/Vol]2.2 x101.3-2.9The Jewish HospitalLymphocytes/100 WBC Auto (Bld)on 92-13-2951Inwjhpxstao/100 WBC (Bld)34 %14-48The Jewish HospitalMCH Auto (RBC) [Entitic mass]on 96-12-9499SBT (RBC) [Entitic mass] 29 jc34-25TxercesstThe Jewish HospitalMCHC Auto (RBC) [Mass/Vol]on 36-70-8289PUVB (RBC) [Mass/Vol]34 g/xT22-12IbcuhgbeiThe Jewish HospitalMCV Auto (RBC) [Entitic vol]on 12-05-5929ZGD (RBC) [Entitic vol]87 vB98-153PbccvofjiThe Jewish HospitalMonocytes Auto (Bld) [#/Vol]on 63-15-9324Gnuqqtpiq (Bld) [#/Vol]0.4 x100.0-0.8The Jewish HospitalMonocytes/100 WBC Auto (Bld)on 22-05-9949Mjotonczs/100 WBC (Bld)6 %1-12The Jewish HospitalNeutrophils Auto (Bld) [#/Vol]on 03-32-8626Hknamixryre (Bld) [#/Vol]3.7 x101.5-9.2FSt. Vincent HospitalNeutrophils/100 WBC Auto (Bld)on 95-82-2995Xivmphxjevg/100 WBC (Bld)57 %44-88The Jewish HospitalNo Panel Informationon 25-20-5375Sfw Manual DifferentialAuto AutoThe Jewish HospitalEosinophils # (Auto)0.2 x100.0-0.4FSt. Vincent HospitalPlatelet mean volume Auto (Bld) [Entitic vol]on 56-12-8734Ndurjfjq mean volume (Bld) [Entitic vol]6.7 fL6.3-10.2FSt. Vincent Hospital Platelets Auto (Bld) [#/Vol]on 78-80-5405Yjgbvqcso (Bld) [#/Vol]179 r60399-940 The Jewish HospitalRBC Auto (Bld) [#/Vol]on 02-98-2147VWX (Bld) [#/Vol]4.76 x103.70-5.30The Jewish HospitalFollitropin [Units/volume] in Serum or PlasmaOrdered By: LEOBARDO BARROSO on 06-23-2022 Follitropin Qn6.2 m[IU]/mLThe Jewish HospitalComment on above: FEMALE NORMALS (PREMENOPAUSE) MID-FOLLICULAR PHASE: 3.9-8.8 mIU/mL MID-CYCLE PEAK: 4.5-22.5 mIU/mL MID-LUTEAL PHASE: 1.8-5.1 mIU/mLFEMALE NORMALS (POSTMENOPAUSE): 16.7-113.6 mIU/mLMALE NORMALS: 1.3-19.3 mIU/mLProlactin [Mass/volume] in Serum or PlasmaOrdered By: LEOBARDO BARROSO on 06-23-2022 Prolactin [Mass/Vol]7.58 ng/mL3.34-26.72The Jewish HospitalCT biopsyOrdered By: Amanda Ford on 68-84-6393Jcpjvkdztyi [Mass/Vol]393 mg/tS222-379XqpfwwjruThe Jewish HospitalIron [Mass/volume] in Serum or PlasmaOrdered By: Amanda Ford on 59-18-1746Hwgz [Mass/Vol]34 ug/jZ98-730 The Jewish HospitalIron binding capacity [Mass/volume] in Serum or PlasmaOrdered By: Amanda Ford on 42-22-6555Mxvb binding capacity [Mass/Vol]550 ug/sQ321-240RviytjtvgThe Jewish HospitalIron saturation [Mass Fraction] in Serum or PlasmaOrdered By: Amanda Ford on 65-96-2971Crym saturation [Mass fraction]6.2 %20-50[facility] Anisocytosis LM Ql (Bld)Ordered By: Farhad Gallego on 12-75-8586Egbulcdjsoxh Ql (Bld)MarkedThe Jewish HospitalBasophils Auto (Bld) [#/Vol]Ordered By: Farhad Gallego on 37-84-4830Sefkemlcf (Bld) [#/Vol]N/[facility]Bas[facility]100 WBC Auto (Bld)Ordered By: Farhad Gallego on 06-11-2022 Basophils/100 WBC (Bld)N/[facility]/100 WBC Manual cnt (Bld)Ordered By: Farhad Gallego on 87-49-2638Huhlvqlhk/100 WBC (Bld)1 % 0-2FSt. Vincent HospitalEosinophils Auto (Bld) [#/Vol]Ordered By: Farhad Gallego on 50-86-1172Vmnuhsvnair (Bld) [#/Vol]N/[facility] WestEosinophils/100 WBC Auto (Bld)Ordered By: Farhad Lashonda on 06-11-2022 Eosinophils/100 WBC (Bld)N/[facility]/100 WBC Manual cnt (Bld)Ordered By: Farhad Lashonda on 80-56-9254Emdwmeeoylu/100 WBC (Bld) 7 %1-3FSt. Vincent HospitalErythrocyte distribution width Auto (RBC) [Ratio]Ordered By: Farhad Lashonda on 55-38-4550Wysznsuftwu distribution width (RBC) [Ratio]26.1 %11.9-15.3FSt. Vincent HospitalHematocrit Auto (Bld) [Volume fraction]Ordered By: Farhad Lashonda on 66-17-2964Hzisdwbkpv (Bld) [Volume fraction]25.7 %34.0-46.4FSt. Vincent HospitalHemoglobin [Mass/volume] in BloodOrdered By: Farhad Lashonda on 12-29-9770Lpvijqgsxh (Bld) [Mass/Vol]8.0 g/dL11.8-15.4FSt. Vincent HospitalHypochromia LM Ql (Bld)Ordered By: Farhad Lashonda on 99-22-7349Hbzcawoafhl Ql (Bld)[facility] HospitalLeukocytes [#/volume] corrected for nucleated erythrocytes in Blood by Automated counOrdered By: Farhad Lashonda on 64-76-2158NHS corrected for nucl RBC Auto (Bld) [#/Vol]5.0 10*3/uL3.8-11.6FSt. Vincent HospitalLymphocytes Auto (Bld) [#/Vol]Ordered By: Farhad Lashonda on 11-56-0483Bbxfsbmpqbg (Bld) [#/Vol]N/[facility] Lymphocytes/100 WBC Auto (Bld)Ordered By: Farhad Lashonda on 06-11-2022 Lymphocytes/100 WBC (Bld)N/[facility] WestLymph[facility]/100 WBC Manual cnt (Bld)Ordered By: Farhad Lashonda on 04-97-7083Wfzzfmbldpi/100 WBC (Bld) 56 %18-42[facility] Auto (RBC) [Entitic mass]Ordered By: Farhad Lashonda on 10-46-3302SPW (RBC) [Entitic mass]21.1 pg24.7-34.3FParma Community General HospitalHC Auto (RBC) [Mass/Vol]Ordered By: Farhad Lashonda on 42-08-4157EGFA (RBC) [Mass/Vol]31.2 g/dL32.0-35.0The [facility] HospitalMCV Auto (RBC) [Entitic vol]Ordered By: Farhad Lashonda on 35-30-0413ATM (RBC) [Entitic vol]67.6 xT35-625BevlltkesThe Jewish HospitalMicrocytes LM Ql (Bld)Ordered By: Farhad Lashonda on 46-47-3747Psvnjcvmsy Ql (Bld)MarkedThe Jewish HospitalMonocytes Auto (Bld) [#/Vol]Ordered By: Farhad Lashonda on 58-56-2396Yfwgawwvg (Bld) [#/Vol]N/[facility] Monocytes/100 WBC Auto (Bld)Ordered By: Farhad Lashonda on 14-92-0411Xzbapfwho/100 WBC (Bld)N/[facility]Mon[facility]/100 WBC Manual cnt (Bld) Ordered By: Farhad Lashonda on 04-28-0648Ebwitjcms/100 WBC (Bld)5 %2-11The Jewish HospitalNeutrophils Auto (Bld) [#/Vol]Ordered By: Farhad Lashonda on 68-86-6452Ugfpwrcaumv (Bld) [#/Vol]N/[facility] Neutrophils/100 WBC Auto (Bld)Ordered By: Farhad Lashonda on 06-11-2022 Neutrophils/100 WBC (Bld)N/[facility] WestNucleated erythrocytes [Presence] in Blood by Automated countOrdered By: Farhad Lashonda on 58-78-9877Ullcszowi RBC Auto Ql (Bld)N/[facility] Platelet adequacy [Presence] in Blood by Light microscopyOrdered By: Farhad Lashonda on 95-92-9824Fonelferm LM Ql (Bld)NormalNormWooster Community HospitalPlatelet mean volume Auto (Bld) [Entitic vol]Ordered By: Farhad Jasonam on 47-85-3671Ksoogqwp mean volume (Bld) [Entitic vol]8.2 fL6.3-10.7FSt. Vincent HospitalPlatelet morphology finding [Identifier] in BloodOrdered By: Farhad Lashonda on 81-51-5716Ojybjfdv morphology finding Nom (Bld)NormalNormMarymount HospitalPlatelets Auto (Bld) [#/Vol]Ordered By: Farhad Lashonda on 40-06-6939Hkmrdbjgj (Bld) [#/Vol]165 10*3/lQ910-137CtmktagphThe Jewish HospitalPolychromasia [Presence] in Blood by Light microscopyOrdered By: Farhad Lashonda on 70-64-7024Fegpnlosszddw LM Ql (Bld)[facility] CenterRBC Auto (Bld) [#/Vol]Ordered By: Farhad Lashonda on 22-81-8870HQD (Bld) [#/Vol]3.80 10*6/uL3.60-5.00The [facility] HospitalRBC morphologyOrdered By: Farhad Lashonda on 96-04-3593HKY morphology finding Nom (Bld) N/AFTriHealth Bethesda Butler Hospitalegmented neutrophils/100 WBC Manual cnt (Bld)Ordered By: Farhad Lashonda on 54-30-8265Kyrwvehdj neutrophils/100 WBC (Bld)32 %50-70The [facility] HospitalWBC Auto (Bld) [#/Vol]Ordered By: Farhad Lashonda on 94-51-1362FXM (Bld) [#/Vol]5.0 10*3/uL3.8-11.6FSt. Vincent HospitalActivated partial thromboplastin time (aPTT) in platelet poor plasma by coagulation aOrdered By: Jean Jett on 82-35-8650dZCQ Coag (PPP) [Time]29.8 s25.1-36.5FSt. Vincent HospitalAnisocytosis LM Ql (Bld) Ordered By: Jean Jett on 95-04-7839Mvxcwwqogjsx Ql (Bld)MarkedThe Jewish HospitalBasophils Auto (Bld) [#/Vol]Ordered By: Jean Jett on 90-47-5585Oblocgzvr (Bld) [#/Vol]0.1 10*3/uL0.0-0.2FSt. Vincent HospitalBasophils/100 WBC Auto (Bld)Ordered By: Jean Jett on 06-10-2022 Basophils/100 WBC (Bld)1.8 %.The Jewish HospitalBilirubin Test strip Ql (U)Ordered By: Jean Jett on 98-33-3487Pkbwtmmko Ql (U)Negative NegativeThe Jewish HospitalCT biopsyOrdered By: Jean Jett on 83-84-1475Dnxwkzgjixn [Mass/Vol]380 mg/xW281-782RgttkvnhnThe Jewish HospitalCalcium [Mass/volume] in Serum or PlasmaOrdered By: Jean Jett on 45-74-3393Ffhobct [Mass/Vol]8.6 mg/dL8.2-10.2FSt. Vincent Hospital Carbon dioxide, total [Moles/volume] in Serum or PlasmaOrdered By: Jean Jett on 81-46-6188LF5 [Moles/Vol]23.3 mmol/L22.0-30.0The [facility] HospitalChloride [Moles/volume] in Serum or PlasmaOrdered By: Jean Jett 09-56-2272Yhmvdpgk [Moles/Vol]106 mmol/U89-513MnxqbufykThe Jewish Hospital Color Auto (U)Ordered By: Jean Jett on 33-79-9731Uypfj (U)YellowYellow The [facility] HospitalCreatine kinase [Enzymatic activity/volume] in Serum or PlasmaOrdered By: Jean Jett 61-53-2024DD [Catalytic activity/Vol] 100 U/M98-094NxewvhzyeThe Jewish HospitalCreatinine and Glomerular filtration rate.predicted panel (S/P/Bld)Ordered By: Jean Jett on 06-10-2022 Creatinine [Mass/Vol]0.71 mg/dL0.44-1.03[facility] Eosinophils Auto (Bld) [#/Vol]Ordered By: Jean Jett on 25-85-1912Mcjqrkpspjk (Bld) [#/Vol]0.3 10*3/uL0.0-0.45The Jewish HospitalEosinophils/100 WBC Auto (Bld)Ordered By: Jean Jett on 87-69-0726Mwqpyqyxwin/100 WBC (Bld) 5.0 %.The Jewish HospitalErythrocyte distribution width Auto (RBC) [Ratio]Ordered By: Jean Jett on 81-36-7183Ytmczaubxst distribution width (RBC) [Ratio]24.6 %11.9-15.3FSt. Vincent HospitalEstimated glomerular filtration rate (GFR) non- AmericanOrdered By: Jean Jett on 77-06-5489IAZ/1.73 sq M.predicted among non-blacks MDRD (S/P/Bld) [Vol rate/Area]> 60 mL/MinThe Jewish HospitalFecal occult blood detection by immunochemistryOrdered By: Jean Jett on 06-10-2022 Hemoglobin.gastrointestinal Ql (Stl)The [facility] HospitalGlucose [Mass/volume] in Serum or PlasmaOrdered By: Jean Jett on 32-06-9496Pbxllyr [Mass/Vol]94 mg/uJ92-157RzffmiugrThe Jewish HospitalComment on above:ADA recommended reference rangeRandom Glucose Reference Range is dependent on time and content of last meal. Glucose of more than 200 mg/dL in a nonstressed, ambulatory subject supports the diagnosisof Diabetes Mellitus.HCG ( test) IA.rapid Ql (U)Ordered By: Jean Jett on 55-74-7843KQO ( test) Ql (U)NegativeThe Jewish HospitalHematocrit Auto (Bld) [Volume fraction]Ordered By: Jean Jett on 94-56-0568Ykmdnzocul (Bld) [Volume fraction]23.8 %34.0-46.4FSt. Vincent HospitalHemoglobin [Mass/volume] in BloodOrdered By: Jean Jett on 39-44-1631Qtobxxcnqw (Bld) [Mass/Vol]7.3 g/dL11.8-15.4FSt. Vincent HospitalHypochromia LM Ql (Bld)Ordered By: Jean Jett on 99-85-5016Vuxhztnkwhh Ql (Bld)MarkedThe Jewish HospitalIron [Mass/volume] in Serum or PlasmaOrdered By: Jean Jett on 02-87-6085Zyoa [Mass/Vol]25 ug/oY81-718WvlnpmaobThe Jewish HospitalIron binding capacity [Mass/volume] in Serum or PlasmaOrdered By: Jean Jett on 84-93-1906Igba binding capacity [Mass/Vol]532 ug/vV217-206DcwahrewuThe Jewish HospitalIron saturation [Mass Fraction] in Serum or PlasmaOrdered By: Jean Jett on 84-77-2583Xuju saturation [Mass fraction]4.7 %20-50The Jewish HospitalKetones Auto test strip (U) [Mass/Vol]Ordered By: Jean Jett on 14-11-5188Njlbjtg (U) [Mass/Vol]NegativeNegativeThe Jewish HospitalLaboratory - Chemistry and Chemistry - challengeOrdered By: Jean Jett on 53-60-9782Grhbbkqxa [Mass/Vol]1.9 mg/dL1.6-2.6FSt. Vincent HospitalNatriuretic peptide B (Bld) [Mass/Vol]23.0 pg/mL5-100The [facility] HospitalLaboratory - CoagulationOrdered By: Jean Jett on 63-81-0874NP Coag (PPP) [Time]12.9 s9.0-12.9[facility] Leukocytes [#/volume] corrected for nucleated erythrocytes in Blood by Automated counOrdered By: Jean Jett on 83-79-7130IRX corrected for nucl RBC Auto (Bld) [#/Vol]5.3 10*3/uL3.8-11.6FSt. Vincent HospitalLymphocytes Auto (Bld) [#/Vol]Ordered By: Jean Jett on 13-99-9333Wqtejumwzco (Bld) [#/Vol]2.2 10*3/uL1.00-4.8The Jewish HospitalLymphocytes/100 WBC Auto (Bld) Ordered By: Jean Jett on 89-33-3707Lnnrtaraflg/100 WBC (Bld)41.3 %.The Jewish HospitalMCH Auto (RBC) [Entitic mass]Ordered By: Jean Jett on 12-08-4277NOA (RBC) [Entitic mass]19.7 pg24.7-34.3FSt. Vincent HospitalMCHC Auto (RBC) [Mass/Vol]Ordered By: Jean Jett on 13-23-4435FDYH (RBC) [Mass/Vol]30.6 g/dL32.0-35.0The [facility] HospitalMCV Auto (RBC) [Entitic vol]Ordered By: Jean Jett on 76-35-0986ZKB (RBC) [Entitic vol]64.5 bI75-352BtcuuddwtThe Jewish HospitalMicrocytes LM Ql (Bld)Ordered By: Jean Jett on 72-09-1620Wrridylxcl Ql (Bld)MarkedThe Jewish HospitalMonocyte distribution width [Entitic volume] in Blood by AutomatedOrdered By: Jean Jett on 29-13-1915Wruirfyu distribution width Auto (Bld) [Entitic vol]17.54 %0.00-20.00The [facility] HospitalMonocytes Auto (Bld) [#/Vol]Ordered By: Jean Jett on 50-28-8726Klfqoqcxz (Bld) [#/Vol]0.4 10*3/uL 0.0-0.8The [facility] HospitalMonocytes/100 WBC Auto (Bld)Ordered By: Jean Jett on 02-74-6256Znnflwipr/100 WBC (Bld)6.8 %.The Jewish HospitalNeutrophils Auto (Bld) [#/Vol]Ordered By: Jean Jett on 84-51-2916Fvihglnzkpe (Bld) [#/Vol]2.4 10*3/uL1.8-7.7FSt. Vincent HospitalNeutrophils/100 WBC Auto (Bld)Ordered By: Jean Jett on 06-10-2022 Neutrophils/100 WBC (Bld)45.1 %.The Jewish HospitalNitrite Test strip Ql (U)Ordered By: Jean Jett on 37-44-7754Wagtiin Ql (U)NegativeNegative The [facility] HospitalNo Panel InformationOrdered By: Jean Jett on 10-28-3263Txrxqzwzv GFR ()> 60 mL/MinThe Jewish HospitalComment on above:GFR estimated reference range: According to KDOQI guidelines, <60 ml/min/1.73m2 is sufficient todiagnose a patient with chronic kidney disease.Pharmacy Creatinine Clearance (Vypp666.49The Jewish HospitalNucleated erythrocytes [Presence] in Blood by Automated count Ordered By: Jean Jett on 30-63-6734Jmdbrmzkn RBC Auto Ql (Bld)0.1 /100{WBC} 0-0.5FSt. Vincent HospitalOvalocyte detectionOrdered By: Jean Jett on 20-38-9009Clmshswlee LM Ql (Bld)SlightThe Jewish Hospital Platelet adequacy [Presence] in Blood by Light microscopyOrdered By: Jean Jett on 59-64-9406Vcjpkrgxv LM Ql (Bld)NormalNormWooster Community HospitalPlatelet mean volume Auto (Bld) [Entitic vol]Ordered By: Jean Jett on 67-17-5626Llyhgdzy mean volume (Bld) [Entitic vol]8.3 fL6.3-10.7FSt. Vincent HospitalPlatelet morphology finding [Identifier] in BloodOrdered By: Jean Jett on 19-16-5677Hoyxzaep morphology finding Nom (Bld)NormalNormal The Jewish HospitalPlatelet poor plasma international normalized ratio (INR) by coagulation assay (relatOrdered By: Jean Jett on 42-88-4944ZBI Coag (PPP) [Relative time]1.1 {INR}The Jewish HospitalComment on above:INR Therapeutic Range A) Pre- [...] Auto (Bld) [#/Vol]Ordered By: Jean Jett on 11-83-5558Isiexkcsl (Bld) [#/Vol]202 10*3/pQ015-999LwazxgkxlThe Jewish HospitalPoikilocytosis [Presence] in Blood by Light microscopyOrdered By: Jean Jett on 68-08-1695Suqtxfuohuefex LM Ql (Bld)[facility] HospitalPolychromasia [Presence] in Blood by Light microscopyOrdered By: Jean Jett on 87-72-4633Gcsutxmkewynk LM Ql (Bld)[facility] HospitalPotassium [Moles/volume] in Serum or PlasmaOrdered By: Jean Jett on 99-31-7099Odlyniggk [Moles/Vol]4.1 mmol/L3.5-5.1FSt. Vincent HospitalProtein Auto test strip (U) [Mass/Vol]Ordered By: Jean Jett on 75-67-2126Klhilbm (U) [Mass/Vol]NegativeNegativeThe Jewish HospitalRBC Auto (Bld) [#/Vol]Ordered By: Jean Jett on 83-08-0100LYQ (Bld) [#/Vol]3.69 10*6/uL3.60-5.00[facility] morphology Ordered By: Jean Jett on 99-09-3542EWI morphology finding Nom (Bld)N/A [facility] Hospitalerum or plasma anion gap determinationOrdered By: Jean Jett on 91-44-0767Ikbgr gap [Moles/Vol]10.8 mmol/L6.0-15.0[facility] Hospitalodium [Moles/volume] in Serum or PlasmaOrdered By: Jean Jett on 65-29-2054Stcpug [Moles/Vol]136 mmol/N236-343RnmshcnhkMarietta Memorial Hospitalpecific gravity Auto test strip (U) [Rel density]Ordered By: Jean Jett on 15-46-3297Zpknvfdf gravity (U) [Rel density]1.0101.001-1.030 The [facility] HospitalTarget cellsOrdered By: Jean Jett on 83-32-7076Dyqfzm cells LM Ql (Bld)[facility] Teardrop cell detectionOrdered By: Jean Jett on 12-20-1259Adtznoxaww LM Ql (Bld)[facility] HospitalTroponin I.cardiac [Mass/volume] in Serum or Plasma by High sensitivity methodOrdered By: Jean Jett on 06-10-2022 Troponin I.cardiac High sensitivity method [Mass/Vol]< 3 pg/mL0-15The [facility] HospitalUrea nitrogen [Mass/volume] in Serum or PlasmaOrdered By: Jean Jett on 19-94-6644Bpmm nitrogen [Mass/Vol]9 mg/dL9The [facility] HospitalUrine clarity by refractometry automatedOrdered By: Jean Jett on 44-67-3345Ldznslo Refractometry automated (U)ClearClearFSt. Vincent HospitalUrine glucose measurement by automated test strip (mass/volume) Ordered By: Jean Jett on 66-50-1583Rmnvhef Auto test strip (U) [Mass/Vol] Normal mg/dLNoCincinnati VA Medical CenterUrine hemoglobin detection by automated test stripOrdered By: Jean Jett on 15-88-0501Crywifsjfy Auto test strip Ql (U)NegativeNegPremier Health Miami Valley HospitalUrine leukocyte esterase detection by automated test stripOrdered By: Jean Jett on 06-10-2022 Leukocyte esterase Auto test strip Ql (U)NegativeNegPremier Health Miami Valley HospitalUrobilinogen Auto test strip (U) [Mass/Vol]Ordered By: Jean Jett on 08-05-0787Hsdwoefiyqdp (U) [Mass/Vol]Normal mg/dLSt. Charles HospitalWBC Auto (Bld) [#/Vol]Ordered By: Jean Jett on 57-86-6952PZZ (Bld) [#/Vol]5.3 10*3/uL3.8-11.6FSt. Vincent Hospital pH Auto test strip (U)Ordered By: Jean Jett on 01-43-9562qU (U)5.5 [pH] 5.0-9.0The [facility] HospitalAlkaline phosphatase [Enzymatic activity/volume] in Serum or PlasmaOrdered By: Julieta Jefferson on 88-18-6397RTO [Catalytic activity/Vol]39 U/I47-73QucgrflmrThe Jewish HospitalAnisocytosis LM Ql (Bld)Ordered By: Julieta Jefferson on 28-30-9689Ocleuzejnpit Ql (Bld)Marked The Jewish HospitalAspartate aminotransferase [Enzymatic activity/volume] in Serum or PlasmaOrdered By: Julieta Jefferson on 12-55-6304LIA [Catalytic activity/Vol]15 U/F47-78VhyglxqvbThe Jewish HospitalBasophils Auto (Bld) [#/Vol]Ordered By: Julieta Jefferson on 24-93-6588Cdvsmnrnr (Bld) [#/Vol] 0.1 10*3/uL0.0-0.2FSt. Vincent HospitalBasophils/100 WBC Auto (Bld) Ordered By: Julieta Jefferson on 57-96-2860Kslzdpjvl/100 WBC (Bld)1.4 %.The [facility] HospitalBody fluid albumin measurement (mass/volume)Ordered By: Julieta Jefferson on 83-11-0489Vmwpmjs (Body fld) [Mass/Vol]4.1 g/dL3.2-5.5FSt. Vincent HospitalCalcium [Mass/volume] in Serum or PlasmaOrdered By: Julieta Jefferson on 09-34-9390Wvzekdc [Mass/Vol]9.0 mg/dL8.2-10.2FSt. Vincent HospitalCarbon dioxide, total [Moles/volume] in Serum or PlasmaOrdered By: Julieta Jefferson on 04-30-8402ES7 [Moles/Vol]23.3 mmol/L22.0-30.0The [facility] HospitalCholesterol [Mass/volume] in Serum or PlasmaOrdered By: Julieta Jefferson on 24-13-5150Krwcjgmxvpv [Mass/Vol]137 mg/kU210-048EpwdvdtujThe Jewish HospitalComment on above:Chol less than 200 mg/dl low riskChol 201-239 mg/dl borderline riskChol 240 mg/dl and greater high riskCholesterol in LDL Calc [Mass/Vol]Ordered By: Julieta Jefferson on 09-21-1799Vwrclevpgbd in LDL [Mass/Vol]72 mg/dL0-100The Jewish HospitalComment on above:LDL ATP III CLASSIFICATIONLDL less than 100 mg/dL OptimalLDL 100-129 mg/dL Near or above michbkiQTB449-234 mg/dL Borderline highLDL 160-189 mg/dL HighLDL greater than 189 mg/dL Very highCholesterol in VLDL Calc [Mass/Vol]Ordered By: Julieta Jefferson on 48-72-9579Jrzywfvrhuo in VLDL [Mass/Vol]9 mg/dLThe Jewish HospitalCreatinine and Glomerular filtration rate.predicted panel (S/P/Bld)Ordered By: Julieta Jefferson on 82-12-3808Qqfgbbolny [Mass/Vol]0.59 mg/dL0.44-1.03The [facility] HospitalEosinophils Auto (Bld) [#/Vol]Ordered By: Julieta Jefferson on 93-02-0857Xcznsjkpyjk (Bld) [#/Vol]0.3 10*3/uL0.0-0.45The [facility] HospitalEosinophils/100 WBC Auto (Bld)Ordered By: Julieta Jefferson on 06-09-2022 Eosinophils/100 WBC (Bld)6.8 %.The Jewish HospitalErythrocyte distribution width Auto (RBC) [Ratio]Ordered By: Julieta Jefferson on 06-09-2022 Erythrocyte distribution width (RBC) [Ratio]24.5 %11.9-15.3FSt. Vincent HospitalEstimated glomerular filtration rate (GFR) non- Ordered By: Julieta Jefferson on 87-47-3691HZJ/1.73 sq M.predicted among non-blacks MDRD (S/P/Bld) [Vol rate/Area]> 60 mL/MinThe Jewish Hospital Globulin Calc (S) [Mass/Vol]Ordered By: Julieta Jefferson on 30-73-0465Yaiuwldu (S) [Mass/Vol]2.3 g/dLThe Jewish HospitalGlucose mean value [Mass/volume] in Blood Estimated from glycated hemoglobinOrdered By: Julieta Jefferson on 69-13-1129Fhrspsd glucose Estimated from glycated hemoglobin (Bld) [Mass/Vol]97 mg/dLThe Jewish HospitalHematocrit Auto (Bld) [Volume fraction]Ordered By: Julieta Jefferson on 20-28-8280Idesfaqhrw (Bld) [Volume fraction]26.0 %34.0-46.4FSt. Vincent HospitalHemoglobin A1c percentageOrdered By: Julieta Jefferson on 19-52-1802NvI4u (Bld) [Mass fraction]5.0 % 4.3-5.6FSt. Vincent HospitalComment on above:Increased risk for diabetes: 5.7 - 6.4diabetes: >6.4glycemic control for adults with diabetes: &l t;7.0Hemoglobin [Mass/volume] in BloodOrdered By: Julieta Jefferson on 06-09-2022 Hemoglobin (Bld) [Mass/Vol]7.8 g/dL11.8-15.4FSt. Vincent Hospital Hypochromia LM Ql (Bld)Ordered By: Julieta Jefferson on 54-58-9364Jdwfwmfaqoz Ql (Bld) ModerateThe Jewish HospitalLeukocytes [#/volume] corrected for nucleated erythrocytes in Blood by Automated counOrdered By: Julieta Jefferson on 80-72-6069ALU corrected for nucl RBC Auto (Bld) [#/Vol]4.6 10*3/uL3.8-11.6 The [facility] HospitalLymphocytes Auto (Bld) [#/Vol]Ordered By: Julieta Jefferson on 56-92-3491Yddznbkvlsu (Bld) [#/Vol]2.0 10*3/uL1.00-4.8The [facility] HospitalLymphocytes/100 WBC Auto (Bld)Ordered By: Julieta Jefferson on 43-54-7687Pomlywlwloo/100 WBC (Bld)44.2 %.The Jewish HospitalMCH Auto (RBC) [Entitic mass]Ordered By: Julieta Jefferson on 92-59-7649PPJ (RBC) [Entitic mass]19.7 pg24.7-34.3FSt. Vincent HospitalMCHC Auto (RBC) [Mass/Vol]Ordered By: Julieta Jefferson on 83-69-5930JVLG (RBC) [Mass/Vol]30.2 g/dL 32.0-35.0The [facility] HospitalMCV Auto (RBC) [Entitic vol]Ordered By: Julieta Jefferson on 36-46-3356QIK (RBC) [Entitic vol]65.3 pR28-854NuirhfbvqThe Jewish HospitalMicrocytes LM Ql (Bld)Ordered By: Julieta Jefferson on 20-38-8894Lxonxrzzpm Ql (Bld)MarkedThe Jewish HospitalMonocytes Auto (Bld) [#/Vol]Ordered By: Julieta Jefferson on 92-58-6990Vxlgswurp (Bld) [#/Vol] 0.4 10*3/uL0.0-0.8The [facility] HospitalMonocytes/100 WBC Auto (Bld) Ordered By: Julieta Jefferson on 88-48-7510Ucrhzjyhd/100 WBC (Bld)8.9 %.The Jewish HospitalNeutrophils Auto (Bld) [#/Vol]Ordered By: Julieta Jefferson on 35-68-9560Uepyhvhiqlp (Bld) [#/Vol]1.8 10*3/uL1.8-7.7FSt. Vincent HospitalNeutrophils/100 WBC Auto (Bld)Ordered By: Julieta Jefferson on 06-09-2022 Neutrophils/100 WBC (Bld)38.7 %.The [facility] HospitalNo Panel InformationOrdered By: Julieta Jefferson on 50-80-3987Wegleywhn GFR () > 60 mL/MinThe Jewish HospitalComment on above:GFR estimated reference range: According to KDOQI guidelines, <60 ml/min/1.73m2 is sufficient todiagnose a patient with chronic kidney disease.Pharmacy Creatinine Clearance (ChemN/AFSt. Vincent HospitalNucleated erythrocytes [Presence] in Blood by Automated countOrdered By: Julieta Jefferson on 10-17-9348Btilxgcxg RBC Auto Ql (Bld)0.1 /100{WBC}0-0.5FSt. Vincent HospitalPlatelet adequacy [Presence] in Blood by Light microscopyOrdered By: Julieta Jefferson on 06-09-2022 Platelets LM Ql (Bld)NormalSt. Charles HospitalPlatelet mean volume Auto (Bld) [Entitic vol]Ordered By: Julieta Jefferson on 08-85-9069Ymaioowv mean volume (Bld) [Entitic vol]8.2 fL6.3-10.7FSt. Vincent Hospital Platelet morphology finding [Identifier] in BloodOrdered By: Julieta eJfferson on 11-03-6318Rbkfxwnf morphology finding Nom (Bld)NormalNormWooster Community HospitalPlatelets Auto (Bld) [#/Vol]Ordered By: Julieta Jefferson on 06-09-2022 Platelets (Bld) [#/Vol]200 10*3/qQ953-766YrjihfletThe Jewish Hospital Poikilocytosis [Presence] in Blood by Light microscopyOrdered By: Julieta Jefferson on 22-37-3859Wylccdqoqoovti LM Ql (Bld)[facility] Polychromasia [Presence] in Blood by Light microscopyOrdered By: Julieta Jefferson on 75-31-0734Kgyizjdxcggdx LM Ql (Bld)ModerateThe Jewish Hospital Protein [Mass/volume] in Serum or PlasmaOrdered By: Julieta Jefferson on 06-09-2022 Protein [Mass/Vol]6.4 g/dL6.1-7.9The [facility] HospitalRB Auto (Bld) [#/Vol]Ordered By: Julieta Jefferson on 44-64-7302WDN (Bld) [#/Vol]3.97 10*6/uL 3.60-5.00The [facility] HospitalRB morphologyOrdered By: Julieta Jefferson on 54-23-4748FNA morphology finding Nom (Bld)N/[facility] Centerchistocytes [Presence] in Blood by Light microscopyOrdered By: Julieta Jefferson on 63-46-9467Nzgkedczghlg LM Ql (Bld)[facility] Hospitalerum or plasma alanine aminotransferase measurement without P-5'-P (enzymatic activiOrdered By: Julieta Jefferson on 95-44-4476THV No additional P-5'-P [Catalytic activity/Vol]14 U/X26-17FbqxmskwzMarietta Memorial Hospitalerum or plasma albumin/globulin mass ratioOrdered By: Julieta Jefferson on 06-09-2022 Albumin/Globulin [Mass ratio]1.8 {ratio}[facility] Hospitalerum or plasma anion gap determinationOrdered By: Julieta Jefferson on 43-12-9605Iqasm gap [Moles/Vol]11.5 mmol/L6.0-15.0[facility] Hospitalerum or plasma calcitriol measurement (mass/volume)Ordered By: Julieta Jefferson on ,25- dihydroxyvitamin D3 [Mass/Vol]60.5 pg/mL24.8-81.5FSt. Vincent HospitalComment on above:Performed at: [facility] [id number] Director: Jon Horton MD, Phone: [phone] or plasma chloride measurement (moles/volume)Ordered By: Julieta Jefferson on 70-39-0422Lmutvwvw [Moles/Vol]106 mmol/L60-710SkzppnmyzThe Jewish Hospital Serum or plasma glucose measurement (mass/volume)Ordered By: Julieta Jefferson on 47-50-0237Nktiodj [Mass/Vol]78 mg/hE59-550PunflulxtThe Jewish Hospital Comment on above:ADA recommended reference rangeRandom Glucose Reference Range is dependent on time and content of last meal. Glucose of more than 200 mg/dL in a nonstressed, ambulatory subject supports the diagnosisof Diabetes Mellitus. Serum or plasma high density lipoprotein (HDL) cholesterol measurementOrdered By: Julieta Jefferson on 18-46-8230Hlencqsxnza in HDL [Mass/Vol]56 mg/gK07-52YuraweyktThe Jewish HospitalComment on above:HDL CHOL ATP-III CLASSIFICATION Cardiovascular RiskHDL > or equal to 60 mg/dL LOWHDL < 40 mg/dL HIGHSerum or plasma potassium measurement (moles/volume)Ordered By: Julieta Jefferson on 06-09-2022 Potassium [Moles/Vol]3.8 mmol/L3.5-5.1FTriHealth Bethesda Butler Hospitalerum or plasma sodium measurement (moles/volume)Ordered By: Julieta Jefferson on 06-09-2022 Sodium [Moles/Vol]137 mmol/M806-130GgfipxgbfMarietta Memorial Hospitalerum or plasma total bilirubin measurement (mass/volume)Ordered By: Julieta Jefferson on [id number] [Mass/Vol]0.3 mg/dL0.3-1.2FSt. Vincent Hospital Serum or plasma total cholesterol/high density lipoprotein (HDL) cholesterol mass ratOrdered By: Julieta Jefferson on 42-83-2462Fjubbflhvuy.total/Cholesterol in HDL [Mass ratio]2.4 {ratio}<5.0The Jewish HospitalTS DL <= 0.005 mIU/L QnOrdered By: Julieta Jefferson on [id number] Qn4.10 m[IU]/L0.45-5.33 The Jewish HospitalTeardrop cell detectionOrdered By: Julieta Jefferson on [id number] LM Ql (Bld)SlightThe Jewish Hospital Triglyceride [Mass/volume] in Serum or PlasmaOrdered By: Julieta Jefferson on 85-24-3531Lgbwdsakftpa [Mass/Vol]45 mg/lA24-324UqjrjhbjmThe Jewish Hospital Comment on above:TRIG ATP III CLASSIFICATIONTRIG less than 150 mg/dL NormalTRIG 150-199 mg/dL Borderline highTRIG 200-500 mg/dL High TRIG greater than 500 mg/dL Very highStandard traceable to the Center for Disease Conrtrol and Prevention (CDC) test method.Urea nitrogen [Mass/volume] in Serum or PlasmaOrdered By: Julieta Li on 26-24-6007Fyzu nitrogen [Mass/Vol]6 mg/dL9-The Jewish HospitalWBC Auto (Bld) [#/Vol]Ordered By: Julieta Li on 10-82-7564WIR (Bld) [#/Vol]4.6 10*3/uL3.8-11.6FSt. Vincent HospitalUrine 10 SGon 56-13-2274Npfaxvj DL <= 20 mg/L (U) [Mass/Vol][facility]Nowright [facility] hospital [employer] Other pH (U)7.0 [pH][facility] Other urine 10 SGNegativeSwan Inc [employer] Other Urine 10 SG1.020NoS[employer] Other urine 10 SGlargeSwan Inc [employer] Other Urine Cultureon 39-24-2480Zpvoybwu identified Cx Nom (U)[facility] Other urine culture routineOrdered By: Amanda Fodr on 94-32-0096Zxshsajf identified Cx Nom (U)2 DaysThe Jewish HospitalActivated partial thromboplastin time (aPTT) in platelet poor plasma by coagulation aOrdered By: Phu Hdz on 82-74-1092gVBC Coag (PPP) [Time] 30.4 s25.1-36.5FSt. Vincent HospitalAutomated erythrocytes count in urine sediment (number/area)Ordered By: Jean Jett on 22-46-1886XUB Auto (Urine sed) [#/Area]Innumerable [HPF]0-4FSt. Vincent Hospital Automated leukocytes count in urine sediment (number/area)Ordered By: Jean Jett on 16-05-9398RVQ Auto (Urine sed) [#/Area]3-4 [HPF]0-4FSt. Vincent HospitalAutomated urine sediment calcium oxalate crystal count by microscopy (number/high powOrdered By: Jean Jett on 66-82-2882Zawfehm oxalate crystals LM.HPF (Urine sed) [#/Area]1+ [HPF][facility] Basophils Auto (Bld) [#/Vol]Ordered By: Jean Jett on 46-82-7488Dvdxtdtzb (Bld) [#/Vol]0.0 10*3/uL0.0-0.2FSt. Vincent HospitalBasophils/100 WBC Auto (Bld)Ordered By: Jean Jett on 07-72-5999Xgpmfcbup/100 WBC (Bld)0.5 % .The Jewish HospitalBilirubin Test strip Ql (U)Ordered By: Jean Jett on 41-25-5167Lhgeoaqkm Ql (U)1+NegativeThe [facility] Hospital Casts typing in urine sediment by light microscopyOrdered By: Jean Jett on 58-97-7608Mkqiu LM Nom (Urine sed)None seen [LPF]None SeenThe Jewish HospitalColor Auto (U)Ordered By: Jean Jett on 27-85-6867Rdquq (U)Red YellowThe Jewish HospitalCreatinine and Glomerular filtration rate.predicted panel (S/P/Bld)Ordered By: Jean Jett on 73-94-5743Zlakilauvq [Mass/Vol]0.68 mg/dL0.44-1.03The [facility] HospitalEosinophils Auto (Bld) [#/Vol]Ordered By: Jean Jett on 19-21-4060Sflvyacuzxn (Bld) [#/Vol]0.2 10*3/uL0.0-0.45The [facility] HospitalEosinophils/100 WBC Auto (Bld) Ordered By: Jean Jett on 84-46-9765Gspnepqtzgt/100 WBC (Bld)2.1 %.The [facility] HospitalErythrocyte distribution width Auto (RBC) [Ratio]Ordered By: Jean Jett on 32-00-4587Guoorzjlrnj distribution width (RBC) [Ratio]14.3 % 11.9-15.3FSt. Vincent HospitalEstimated glomerular filtration rate (GFR) non- AmericanOrdered By: Jean Jett on 43-08-6147OQR/1.73 sq M.predicted among non-blacks MDRD (S/P/Bld) [Vol rate/Area]> 60 mL/MinThe Jewish HospitalHC ( test) IA.rapid Ql (U)Ordered By: Jean Jett on 73-79-2332HPW ( test) Ql (U)NegativeThe Jewish HospitalHematocrit Auto (Bld) [Volume fraction]Ordered By: Jean Jett on 83-95-2896Khjcyfqktq (Bld) [Volume fraction]29.4 %34.0-46.4FSt. Vincent HospitalHemoglobin [Mass/volume] in BloodOrdered By: Jean Jett on 37-42-2236Adejjmnavy (Bld) [Mass/Vol]9.9 g/dL11.8-15.4FSt. Vincent HospitalKetones Auto test strip (U) [Mass/Vol]Ordered By: Jean Jett on 79-03-6820Tghihbk (U) [Mass/Vol]NegativeNegativeThe Jewish HospitalLaboratory - CoagulationOrdered By: Phu Hdz on 17-84-1749LW Coag (PPP) [Time]12.4 s9.0-12.9The [facility] HospitalLaboratory - UrinalysisOrdered By: Jean Jett on 53-86-5321Algrwzf casts LM Ql (Urine sed) None seen [LPF]0-8The Jewish HospitalLeukocytes [#/volume] corrected for nucleated erythrocytes in Blood by Automated counOrdered By: Jean Jett on 73-67-6237ZEE corrected for nucl RBC Auto (Bld) [#/Vol]8.5 10*3/uL3.8-11.6FSt. Vincent HospitalLymphocytes Auto (Bld) [#/Vol] Ordered By: Jean Jett on 27-68-0947Euulbxkvnls (Bld) [#/Vol]2.1 10*3/uL 1.00-4.8The Jewish HospitalLymphocytes/100 WBC Auto (Bld)Ordered By: Jean Jett on 15-38-6595Bghhmjcyqcs/100 WBC (Bld)25.2 %.[facility]eterans Health AdministrationH Auto (RBC) [Entitic mass]Ordered By: Jean Jett on 02-63-5183JIZ (RBC) [Entitic mass]28.8 pg24.7-34.3FSt. Vincent HospitalMCHC Auto (RBC) [Mass/Vol]Ordered By: Jean Jett on 94-25-1189PYEI (RBC) [Mass/Vol]33.6 g/dL32.0-35.0The [facility] HospitalMCV Auto (RBC) [Entitic vol]Ordered By: Jean Jett on 67-37-2563DDO (RBC) [Entitic vol]85.7 nN73-618KhwmruodpThe Jewish HospitalMonocyte distribution width [Entitic volume] in Blood by AutomatedOrdered By: Jean Jett on 34-20-2526Uzsfdwcq distribution width Auto (Bld) [Entitic vol]14.20 %0.00-20.00The [facility] HospitalMonocytes Auto (Bld) [#/Vol]Ordered By: Jean Jett on 04-10-2022 Monocytes (Bld) [#/Vol]0.5 10*3/uL0.0-0.8[facility] Monocytes/100 WBC Auto (Bld)Ordered By: Jean Jett on 38-14-8530Lthtzhnwx/100 WBC (Bld)5.7 %.The Jewish HospitalNeutrophils Auto (Bld) [#/Vol] Ordered By: Jean Jett on 07-97-6424Egunclajaxf (Bld) [#/Vol]5.6 10*3/uL 1.8-7.7FSt. Vincent HospitalNeutrophils/100 WBC Auto (Bld)Ordered By: Jean Jett on 38-23-3430Bfkfhisrxjh/100 WBC (Bld)66.5 %.The [facility] HospitalNitrite Test strip Ql (U)Ordered By: Jean Jett on 04-10-2022 Nitrite Ql (U)PositiveNegativeThe Jewish HospitalNo Panel InformationOrdered By: Jean Jett on 21-49-7331Cbprmambp GFR ()> 60 mL/MinThe Jewish HospitalComment on above:GFR estimated reference range: According to KDOQI guidelines, <60 ml/min/1.73m2 is sufficient todiagnose a patient with chronic kidney disease.Pharmacy Creatinine Clearance (Agdo084.39The Jewish HospitalNucleated erythrocytes [Presence] in Blood by Automated countOrdered By: Jean Jett on 04-10-2022 Nucleated RBC Auto Ql (Bld)0.0 /100{WBC}0-0.5FSt. Vincent Hospital Platelet mean volume Auto (Bld) [Entitic vol]Ordered By: Jean Jett on 96-20-1948Ohcmpnza mean volume (Bld) [Entitic vol]6.9 fL6.3-10.7FSt. Vincent HospitalPlatelet poor plasma international normalized ratio (INR) by coagulation assay (relatOrdered By: Phu Hdz on 52-68-5042CVI Coag (PPP) [Relative time]1.1 {INR}The Jewish HospitalComment on above: INR Therapeutic Range A) [...] Auto (Bld) [#/Vol]Ordered By: Jean Jett on 42-71-2135Nbkzkjwqc (Bld) [#/Vol]263 10*3/jJ620-188WyledxfjgThe Jewish HospitalProtein Auto test strip (U) [Mass/Vol]Ordered By: Jean Jett on 41-01-6077Qkuakcr (U) [Mass/Vol]100 mg/dLNegativeThe Jewish HospitalRBC Auto (Bld) [#/Vol]Ordered By: Jean Jett on 27-77-9863IJV (Bld) [#/Vol]3.43 10*6/uL 3.60-5.00[facility] Hospitalerum or plasma anion gap determinationOrdered By: Jean Jett on 37-59-7200Kljlz gap [Moles/Vol]8.5 mmol/L6.0-15.0[facility] Hospitalerum or plasma calcium measurement (mass/volume)Ordered By: Jean Jett on 63-13-1321Njdkwal [Mass/Vol]8.6 mg/dL8.2-10.2FTriHealth Bethesda Butler Hospitalerum or plasma chloride measurement (moles/volume)Ordered By: Jean Jett on 04-10-2022 Chloride [Moles/Vol]106 mmol/J43-849EeuvhfnllMarietta Memorial Hospitalerum or plasma glucose measurement (mass/volume)Ordered By: Jean Jett on 04-10-2022 Glucose [Mass/Vol]99 mg/lG14-891TpydqkiphThe Jewish HospitalComment on above:ADA recommended reference rangeRandom Glucose Reference Range is dependent on time and content of last meal. Glucose of more than 200 mg/dL in a nonstressed, ambulatory subject supports the diagnosisof Diabetes Mellitus.Serum or plasma potassium measurement (moles/volume)Ordered By: Jean Jett on 53-28-8866Gjwkfbqnk [Moles/Vol]3.6 mmol/L3.5-5.1FTriHealth Bethesda Butler Hospitalerum or plasma sodium measurement (moles/volume)Ordered By: Jean Jett on 24-25-8821Sbzrnk [Moles/Vol]138 mmol/F257-816LmnofhgbhMarietta Memorial Hospitalerum or plasma total carbon dioxide measurement (moles/volume)Ordered By: Jean Jett on 04-77-9761KY9 [Moles/Vol]27.1 mmol/L22.0-30.0[facility] Hospitalerum or plasma urea nitrogen measurement (mass/volume)Ordered By: Jean Jett on 14-56-7174Jaqv nitrogen [Mass/Vol]5 mg/dL9-23M[facility] Hospitalpecific gravity Auto test strip (U) [Rel density]Ordered By: Jean Jett on 59-82-9828Bjpjeatl gravity (U) [Rel density]1.0331.001-1.030 [facility] Hospitalquamous epithelial cells detection in urine sediment by light microscopyOrdered By: Jean Jett on 61-24-8737Aazhnfqxox cells.squamous LM Ql (Urine sed)3-4 [HPF]0-2FSt. Vincent Hospital Urine bacteria detection by automated methodOrdered By: Jean Jett on 84-81-6395Xzeydjfd Auto Ql (U)None seenNone SeenThe Jewish HospitalUrine clarity by refractometry automatedOrdered By: Jean Jett on 33-43-8489Erosqcr Refractometry automated (U)TurbidClearFSt. Vincent HospitalUrine culture routineOrdered By: Jean Jett on 04-10-2022 Bacteria identified Cx Nom (U)2 DaysThe Jewish HospitalUrine glucose measurement by automated test strip (mass/volume)Ordered By: Jean Jett on 82-63-8451Bsffuyo Auto test strip (U) [Mass/Vol]Normal mg/dLFulton County Health CenterUrine hemoglobin detection by automated test stripOrdered By: Jean Jett on 71-06-0087Asymrnlolo Auto test strip Ql (U)3+ NegativeThe Jewish HospitalUrine leukocyte esterase detection by automated test stripOrdered By: Jean Jett on 46-79-5379Gyzifqdur esterase Auto test strip Ql (U)2+NegativeThe Jewish HospitalUrine sediment crystal identification by light microscopyOrdered By: Jean Jett on 04-10-2022 Crystals LM Nom (Urine sed)None seen [HPF][facility] Urobilinogen Auto test strip (U) [Mass/Vol]Ordered By: Jean Jett on 00-67-7275Slduwjlfgsbz (U) [Mass/Vol]Normal mg/dLNormWooster Community HospitalWBC Auto (Bld) [#/Vol]Ordered By: Jean Jett on 39-42-1758SYQ (Bld) [#/Vol]8.5 10*3/uL3.8-11.6FSt. Vincent HospitalpH Auto test strip (U)Ordered By: Jean Jett on 32-73-1785vY (U)5.5 [pH]5.0-9.0The [facility] HospitalBasophils Auto (Bld) [#/Vol]Ordered By: PROVIDER TEMP on 95-76-6930Vkznqvcmz (Bld) [#/Vol]0.0 10*3/uL0.0-0.2FSt. Vincent HospitalBasophils/100 WBC Auto (Bld)Ordered By: PROVIDER TEMP on 04-08-2022 Basophils/100 WBC (Bld)0.4 %.The [facility] HospitalEosinophils Auto (Bld) [#/Vol]Ordered By: PROVIDER TEMP on 08-97-1009Wnlfigntnqa (Bld) [#/Vol]0.4 10*3/uL0.0-0.45The Jewish HospitalEosinophils/100 WBC Auto (Bld) Ordered By: PROVIDER TEMP on 99-03-0771Vkmrtthtzks/100 WBC (Bld)5.5 %.The [facility] HospitalErythrocyte distribution width Auto (RBC) [Ratio]Ordered By: PROVIDER TEMP on 74-89-0431Nakbvcaeobg distribution width (RBC) [Ratio]14.1 %11.9-15.3FSt. Vincent HospitalHematocrit Auto (Bld) [Volume fraction]Ordered By: PROVIDER TEMP on 82-64-9972Xdmznzqofv (Bld) [Volume fraction]33.9 %34.0-46.4FSt. Vincent HospitalHemoglobin [Mass/volume] in BloodOrdered By: PROVIDER TEMP on 36-92-6210Vwdfatuncp (Bld) [Mass/Vol]11.4 g/dL11.8-15.4FSt. Vincent HospitalLeukocytes [#/volume] corrected for nucleated erythrocytes in Blood by Automated coun Ordered By: PROVIDER TEMP on 55-63-8961SFW corrected for nucl RBC Auto (Bld) [#/Vol]8.1 10*3/uL3.8-11.6FSt. Vincent HospitalLymphocytes Auto (Bld) [#/Vol]Ordered By: PROVIDER TEMP on 56-66-9525Qoeftwpiyhp (Bld) [#/Vol]2.3 10*3/uL1.00-4.8The Jewish HospitalLymphocytes/100 WBC Auto (Bld) Ordered By: PROVIDER TEMP on 55-15-0141Uirzfspiznh/100 WBC (Bld)28.1 %.The Jewish HospitalMCH Auto (RBC) [Entitic mass]Ordered By: PROVIDER TEMP on 27-26-3347MCE (RBC) [Entitic mass]29.0 pg24.7-34.3FSt. Vincent HospitalMCHC Auto (RBC) [Mass/Vol]Ordered By: PROVIDER TEMP on 23-55-8131NMNW (RBC) [Mass/Vol]33.7 g/dL32.0-35.0The [facility] HospitalMCV Auto (RBC) [Entitic vol]Ordered By: PROVIDER TEMP on 44-96-2380YXN (RBC) [Entitic vol]86.0 jS52-031LqmiydmpyThe Jewish HospitalMonocyte distribution width [Entitic volume] in Blood by AutomatedOrdered By: PROVIDER TEMP on 04-08-2022 Monocyte distribution width Auto (Bld) [Entitic vol]13.83 %0.00-20.00The [facility] HospitalMonocytes Auto (Bld) [#/Vol]Ordered By: PROVIDER TEMP on 66-57-8956Psubztlza (Bld) [#/Vol]0.5 10*3/uL0.0-0.8The [facility] HospitalMonocytes/100 WBC Auto (Bld)Ordered By: PROVIDER TEMP on 04-08-2022 Monocytes/100 WBC (Bld)6.7 %.The Jewish HospitalNeutrophils Auto (Bld) [#/Vol]Ordered By: PROVIDER TEMP on 24-63-8242Gztywilwjmq (Bld) [#/Vol]4.8 10*3/uL1.8-7.7FSt. Vincent HospitalNeutrophils/100 WBC Auto (Bld) Ordered By: PROVIDER TEMP on 87-77-2977Ltuvwoobbzq/100 WBC (Bld)59.3 %.The [facility] HospitalNucleated erythrocytes [Presence] in Blood by Automated countOrdered By: PROVIDER TEMP on 68-29-7209Scloivatu RBC Auto Ql (Bld)0.2 /100{WBC}0-0.5FSt. Vincent HospitalPlatelet mean volume Auto (Bld) [Entitic vol]Ordered By: PROVIDER TEMP on 16-32-1170Awnsmxix mean volume (Bld) [Entitic vol]7.0 fL6.3-10.7FSt. Vincent HospitalPlatelets Auto (Bld) [#/Vol]Ordered By: PROVIDER TEMP on 81-33-9643Nalprkibq (Bld) [#/Vol]199 10*3/uL 150-450The Jewish HospitalRBC Auto (Bld) [#/Vol]Ordered By: PROVIDER TEMP on 67-58-7375JTN (Bld) [#/Vol]3.94 10*6/uL3.60-5.00The [facility] HospitalWBC Auto (Bld) [#/Vol]Ordered By: PROVIDER TEMP on 57-24-7475YKR (Bld) [#/Vol]8.1 10*3/uL3.8-11.6FSt. Vincent Hospital XR shoulder RT min 2V*on 83-27-1705CH shoulder RT min 2V*[facility] [employer] Other XR shoulder RT min 2V*[facility] [employer] Other XR shoulder RT min 2V*[address] [place] [address] [employer] Other XR shoulder RT min 2V*SheldonLUKE [address]Vqszj [employer] Other XR shoulder RT min 2V*[facility] [employer] Other XR shoulder RT min 2V*[facility] [employer] Other XR shoulder RT min 2V*Patient: Jaz Sanders MR#: [id number] [employer] Other XR shoulder RT min 2V*[address] [place] [address] [employer] Other XR shoulder RT min 2V*: 1995 Acct:[id number] [employer] Other XR shoulder RT min 2V*Age/Sex: 27 / F ADM Date: 03/23/22[employer] Other XR shoulder RT min 2V*[facility]: Type: [facility] Other XR shoulder RT min 2V*Attending Dr: Amanda Ford APRN, [facility] [employer] Other XR shoulder RT min 2V*Copies to: Amanda Ford APRN, [facility] [employer] Other XR shoulder RT min 2V*Ordering Provider: Amanda Ford APRN, [facility] [employer] Other XR shoulder RT min 2V*Date of Service: 03/23/22[employer] Other XR shoulder RT min 2V* XR/XR shoulder RT min 2V*: Other chronic pain;Pain in right shoulderBrookesmith [employer] Other XR shoulder RT min 2V*RIGHT SHOULDER - - 3 viewsBrookesmith [employer] Other XR shoulder RT min 2V*CLINICAL HISTORY: Pain lateral to right shoulder for 6 months.[facility] Other XR shoulder RT min 2V*COMPARISON: [facility] [employer] Other XR shoulder RT min 2V*FINDINGS:[facility] Other XR shoulder RT min 2V*Minimal degenerative changes of the right AC joint. Glenohumeral joint is grossly unremarkable. [facility] [employer] Other XR shoulder RT min 2V*acute bony process.[facility] Other XR shoulder RT min 2V* XR/XR shoulder RT min 2V*[facility] Other XR shoulder RT min 2V*IMPRESSION:[facility] Other XR shoulder RT min 2V*MINIMAL DEGENERATIVE CHANGES. NO ACUTE BONY PROCESS.[facility] Other XR shoulder RT min 2V*Impression dictated by: Sravan Dickinson Jr., D.ORenae03/23/2022 4:06 [facility] [employer] Other XR shoulder RT min 2V*Dictation Location: [address] [employer] Other XR shoulder RT min 2V*Transcribed By: [facility] 03/23/[address] [place] [address] [employer] Other xr shoulder RT min 2V*Dictated By: Sravan Dickinson Jr, DO 03/23/[address] [place] [address] [employer] Other xr shoulder RT min 2V*Signed By:[employer] Other xr shoulder RT min 2V*03/23/[address] [place] [address] [employer] Other Coding Summary.on 34-08-9807Srpuha Summary. CD:[id number]:[id number]+PGhlYWQ+QL1EWFUwY61qbPFvyX0FF8dMVD2VKYDVSUBSHY7KNN6jm YS8VQwsP4UyauVn [file] cHNl (more content not included)...[facility] HospitalHeart [facility] Vascular Office/Clinic Noteon 88-34-0062Hneac and Vascular Office/Clinic Note Chief Complaint Testing [...] after patient or guardian consented to allow [employer] to record this visit. ANAMARIA customer energy specialist and provider reviewed before signing. ANAMARIA: [...] Family History Bipolar: Sister. Depression: Mother and Grandparent.[facility] HospitalComment on above:Result Comment: Electronically Signed By: Jay DAVEY, Samir Rivera\.br\Date and Time Signed: 09/02/21 09:25 EDT\.br\Electronically Co-Signed By: Rissa Arias\.br\Date and Time Co-Signed: 09/01/21 17:11 EDTCoding Summary.on 59-03-1104Lrkrpq Summary. CD:[id number]:[id number]+PGhlYWQ+LP3KHQWmB87viVLmhY1XH2hZLF2VVNUZYNQVYD0IQB4gd AY7JLnrT1GnhvGk [file] cHNl (more content not included)...NormalTrihealth Mccullough-Hyde Memorial HospitalConsent for Treatmenton 56-78-4443Blrpdwg for Treatment [id number]#1.00CD:127NormMemorial Health System [facility] Memorial HospitalProgress Note-Physicianon 17-88-7234Fkwwgudo Note-Physician [id number]#1.00CD:127NormMemorial Health System Marietta Memorial HospitalHolter Monitoron 73-22-2583Fpunpc Narvply35-FWKJ HOLTER MONITOR ORDERING PHYSICIAN: Samir Thompson M.D. [...] BY: Mariam Salazar M.D. ls Dictated: 08/26/2021 [id number] Transcribed: 08/27/2021 cc:Samir Thompson M.D.[facility] HospitalComment on above: Result Comment: Electronically Signed By: Martin DAVEY, Mariam Galan\.br\Date and Time Signed: 08/27/21 10:21 EDTHolter Monitor [id number]#1.00CD:127NoTriHealth Bethesda North HospitalConsent for Treatmenton 93-95-6710Jopkxqe for Treatment [id number]#1.00CD:127NoTriHealth Bethesda North HospitalCoding Summary.on 70-80-1257Etdwut Summary. CD:867077IK:8944322GTa4sFb+PGhlYWQ+NS2EBEKdI14gvYKwwZ4XD9bBQT0XJMXTXOPALI6TOE7ez IH8PLmyN2AssjUj [file] cHNl (more content not included)...NormalTrumbull Regional Medical Centertre EKG Tracingson 18-93-7981Ootyvz EKG Tracings [id number]#1.00CD:127[facility] HospitalConsent for Treatmenton 68-73-6119Itooixw for Treatment [id number]#1.00CD:127[facility] HospitalCoding Summary.on 38-12-0040Thalll Summary. CD:275916YQ:8789877ABv1tAl+PGhlYWQ+ZU0ZDOVjM38bxABdcX6PF3tJKB9SLDINJNQYZI6KLU9zz CL9YKmcN9MfwmCv [file] cHNl (more content not included)...[facility] HospitalProgress Note-Physicianon 05-64-2476Dqimjmpp Note-Physician [id number]#1.00CD:127NoTriHealth Bethesda North HospitalHeart and Vascular Office/Clinic Noteon 69-26-3813Rdtcs and Vascular Office/Clinic NoteChief Complaint Bradycardia History [...] increases with exercise. She [facility] to [facility] weeks [facility] for suspected [...] after patient or guardian consented to allow [employer] to record this visit. ANAMARIA customer energy specialist and provider reviewed before signing. ANAMARIA: [...] Tobacco Use:. Never Smokeles (more content not included)...NormalFisher Mehrdad Medical CenterComment on above:Result Comment: Electronically Signed By: Samir Thompson MD\.br\Date and Time Signed: 07/27/21 10:44 EDT\.br\Electronically Co-Signed By: Rissa Arias\.br\Date and Time Co-Signed: 07/24/21 16:24 EDTConsent for Treatmenton 61-90-1860Iqxqany for [id number]#1.00CD:[address] [place], [place] [address]Referrals Officeon 53-46-1477Pqzflzvqj Office [id number]#1.00CD:127[facility] HospitalBASIC METABOLIC PANELon 10-87-8385Javnc gap [Moles/Vol]8 mmol/LLow9 - 17 mmol/LMercy Health- [place], KYBun/Cre RatioNOT REPORTEDMercy Health- [place], KYCalcium [Mass/Vol]9.2 mg/dL8.6 - 10.4 mg/dLMercy Health- [place], KYChloride [Moles/Vol]105 mmol/L98 - 107 mmol/LMercy Health- [place], KYCO2 [Moles/Vol]26 mmol/L20 - 31 mmol/L [facility]- [place], KYCreatinine [Mass/Vol]0.67 mg/dL0.5 - 0.9 [...] body mass. Additional eGFR calculator available at: http://www.Control de Pacientes/multiple_crcl_2012.htm Glucose [Mass/Vol]99 mg/dL70 - 99 mg/dLKindred Hospital [place], KYInterpretation and review of laboratory resultsAbnormalKindred Hospital [place], KYPotassium [Moles/Vol]4.5 mmol/L3.7 - 5.3 mmol/LMOhioHealth Nelsonville [facility] Center, KYSodium [Moles/Vol]139 mmol/L135 - 144 mmol/[facility], KYUrea nitrogen [Mass/Vol]5 mg/dLLow6 - 20 mg/dLKindred Hospital [place], KYBasic Metabolic Profon 05-08-2020(cont.)[facility] Hospital - AkronComment on above:Result Comment: Average GFR for 20-29 years old: 116 mL/min/1.73sq m Chronic Kidney Disease: <60 mL/min/1.73sq m Kidney failure: <15 mL/min/1.73sq m eGFR calculated using average adult body mass. Additional eGFR calculator available at: http://www.Control de Pacientes/multiple_crcl_2012.htmPerformed By: #### CBC, PT, PTT, BMP #### [employer] [address] [place] [address] [phone] Director Inbound Sales: Casey Marques MD #### RICKYT #### [facility] [address] [place] [address] Director Inbound Sales: Dontae Ward gap [Moles/Vol]8 mmol/LLow9-17[facility] Medical CenterComment on above:Performed By: #### CBC, PT, PTT, BMP #### [facility] [address] [place] [address] Director Inbound Sales: Casey Marques MD #### ANICOT #### [facility] [address] [place] [id number] Director Inbound Sales: XIN Wardalcium [Mass/Vol]9.2 mg/dLNormal8.6-10.4[facility] Medical CenterComment on above:Performed By: #### CBC, PT, PTT, BMP #### [facility] [address] [place] [address] [phone] Director Inbound Sales: Casey Marques MD #### ANICOT #### [facility] [address] [place] [address] [phone] Director Inbound Sales: XIN Wardhloride [Moles/Vol]105 mmol/KCfjboq88-528IxilnCincinnati Children'S Hospital Medical CenterComment on above:Performed By: #### CBC, PT, PTT, BMP #### [address] [phone] Director Inbound Sales: Casey Marques MD #### ANICOT #### [facility] [address] [place] [address] [phone] Director Inbound Sales: Adolph Diaz MDCO2 [Moles/Vol]26 mmol/CCojaqo70-58RjgisCincinnati Children'S Hospital Medical CenterComment on above:Performed By: #### CBC, PT, PTT, BMP #### [address] [phone] Director Inbound Sales: Casey Marques MD #### ANICOT #### [facility] [address] [place] [address] [phone] Director Inbound Sales: XIN Wardreatinine [Mass/Vol]0.67 mg/dLNormal0.50-0.90 [facility] Medical CenterComment on above:Performed By: #### CBC, PT, PTT, BMP #### [facility] [address] [place] [address] [phone] Director Inbound Sales: Casey Marques MD #### ANICOT #### [facility] [address] [place] [address] [phone] Director Inbound Sales: Adolph Diaz MDGFR, Amer>60Normal>60[facility] HospitalComment on above:Performed By: #### CBC, PT, PTT, BMP #### [facility] [address] [place] [address] [phone] Director Inbound Sales: Casey Marques MD #### ANICOT #### [facility] [address] [place], [place] [phone] Director Inbound Sales: Adolph Diaz MDGFR,non Amer>60Normal>60[facility] HospitalComment on above:Performed By: #### CBC, PT, PTT, BMP #### [facility] [address] [phone] Director Inbound Sales: Casey Marques MD #### ANICOT #### [facility] [address] [place] [address] [phone] Director Inbound Sales: Adolph Diaz MDGlucose [Mass/Vol]99 mg/bCQtdmff29-74Xdktu [facility] HospitalComment on above:Performed By: #### CBC, PT, PTT, BMP #### [facility] [address] [place] [address] [id number] Director Inbound Sales: Casey Marques MD #### ANICOT #### [facility] [address] [place] [address] Director Inbound Sales: Brianna Wardssium [Moles/Vol]4.5 mmol/LNormal3.7-5.3[facility] HospitalComment on above:Performed By: #### CBC, PT, PTT, BMP #### [facility] [address] [place] [address] [phone] Director Inbound Sales: Casey Marques MD #### ANICOT #### [facility] [address], [place] [id number] Director Inbound Sales: JACINTO Wardodium [Moles/Vol]139 mmol/OYqligv968-098ThhhmCincinnati Children'S Hospital Medical CenterComment on above:Performed By: #### CBC, PT, PTT, BMP #### [facility] [address] [place] [address] Director Inbound Sales: Casey Marques MD #### ANICOT #### [facility] [address], [place] [id number] Director Inbound Sales: Adolph Diaz MDUrea nitrogen [Mass/Vol]5 mg/dLLow6-20[facility] Medical CenterComment on above:Performed By: #### CBC, PT, PTT, BMP #### [facility] [address] [place] [address] Director Inbound Sales: Casey Marques MD #### ANICOT #### [facility] [address], [place] [id number] Director Inbound Sales: ANTONIETA Ward/JAXON WorkmanOT REPORTEDNormal9-20[facility] Medical CenterComment on above:Performed By: #### CBC, PT, PTT, BMP #### [facility] [address] [place] [address] Director Inbound Sales: Casey Marques MD #### ANICOT #### [facility] [address], [place] [id number] Director Inbound Sales: JACINTO Wardtaging:NOT REPORTEDNormalCincinnati Children'S Hospital Medical CenterComment on above:Performed By: #### CBC, PT, PTT, BMP #### [facility] [address] [place] [address] Director Inbound Sales: Casey Marques MD #### ANICOT #### [facility] [address], [place] [id number] Director Inbound Sales: XIN Ward WITH AUTO DIFFERENTIALon [id number] (Bld) [#/Vol]0.06 10*3/uLMercy Health- [place], KYBasophils/100 WBC (Bld)1 %0 - 2 % [facility], KYDifferential TypeNOT REPORTEDKindred Hospital [place], KYEosinophils (Bld) [#/Vol]0.35 10*3/[facility]- [place], KYEosinophils/100 WBC (Bld)3 %1 - 4 %[facility], KYErythrocyte distribution width (RBC) [Ratio]14.7 %High11.8 - 14.4 %[facility], KYHematocrit (Bld) [Volume fraction]38.4 %36.3 - 47.1 %[facility], KYHemoglobin (Bld) [Mass/Vol]12.0 g/dL11.9 - 15.1 g/dLKindred Hospital [place], CTImmature granulocytes (Bld) [#/Vol]1 %Eyae[address]Fbpbs[address] [place] [address]- [place], [place] Immature granulocytes (Bld) [#/Vol]0.06 10*3/[facility], [place] Interpretation and review of laboratory resultsAbnormMercy Health St. [facility], [place] Lymphocytes (Bld) [#/Vol]2.21 10*3/[facility], KYLymphocytes/100 WBC (Bld)21 %Low24 - 43 %[facility], KYMCH (RBC) [Entitic mass]26.5 pg25.2 - 33.5 pgKindred Hospital [place], CTMCHC (RBC) [Mass/Vol]31.3 g/dL28.4 - 34.8 g/dLKindred Hospital [place], KYMCV (RBC) [Entitic vol]85.0 fL82.6 - 102.9 fLKindred Hospital [place], [place] Monocytes (Bld) [#/Vol]0.71 10*3/[facility], KYMonocytes/100 WBC (Bld)7 %3 - 12 %[facility], KYPlatelet mean volume (Bld) [Entitic vol]8.6 fL8.1 - 13.5 fLKindred Hospital [place], KYPlatelets (Bld) [#/Vol]256 10*3/[facility], CTPlatelets (Bld) [#/Vol]NOT REPORTEDMercy Health [facility] (Bld) [#/Vol]4.52 10*6/uL3.95 - 5.11 m/[facility], [facility] morphology finding Nom (Bld) ANISOCYTOSIS PRESENTPeoples Hospitalgmented neutrophils/100 WBC (Bld)67 % High36 - 65 %[place], KYSegs Absolute7.30[place], KYWBC (Bld) [#/Vol]10.7 10*3/uLKindred Hospital [place], CTWBC (Bld) [#/Vol]0.0 10*3/uL0.0 per 100 WBCKindred Hospital [place], [facility] MorphologyNOT REPORTEDSt. Elizabeth Hospital with Diffon [id number]. Basophil0.06 k/uLNormal0.00-0.20[facility] Medical CenterComment on above:Performed By: #### CBC, PT, PTT, BMP #### [facility] [place], [place] [id number] Director Inbound Sales: Casey Marques MD #### ANAIL #### [facility] [address] [place] [address] Director Inbound Sales: Ashley Ward.Imm.Granulocyte0.06 k/uLNormal0.00-0.30[facility] Medical CenterComment on above:Performed By: #### CBC, PT, PTT, BMP #### [facility] [address] [place], [place] [id number] Director Inbound Sales: Casey Marques MD #### RICKYT #### [facility] [address] [place] [address] Director Inbound Sales: Ashley Ward.Neutrophil (Seg)7.30 k/uLNormal1.50-8.10C[facility] Medical CenterComment on above:Performed By: #### CBC, PT, PTT, BMP #### [address] [address] Director Inbound Sales: Casey Marques MD #### ANICOT #### [facility] [address], [place] [id number] Director Inbound Sales: Adolph Diaz MDBasophils/100 WBC (Bld)1 %Normal0-2MercValley Children’s HospitalComment on above:Performed By: #### CBC, PT, PTT, BMP #### [address] [address] Director Inbound Sales: Casey Marques MD #### ANICOT #### [address] [id number] Director Inbound Sales: Adolph Diaz MDEosinophils (Bld) [#/Vol]0.35 10*3/uLNormal 0.00-0.44[facility] Medical CenterComment on above:Performed By: #### CBC, PT, PTT, BMP #### [address] [address] Director Inbound Sales: Casey Marques MD #### ANICOT #### [address] [id number] Director Inbound Sales: Adolph Diaz MDEosinophils/100 WBC (Bld)3 %Normal1-4C[facility] Hospital Medical CenterComment on above:Performed By: #### CBC, PT, PTT, BMP #### [address] [address] Director Inbound Sales: Casey Marques MD #### ANICOT #### [address] [id number] Director Inbound Sales: Adolph Diaz MDErythrocyte distribution width (RBC) [Ratio]14.7 %High11.8-14.4C[facility] Hospital Medical CenterComment on above:Performed By: #### CBC, PT, PTT, BMP #### [facility] [address] [place] [address] Director Inbound Sales: Casey Marques MD #### ANICOT #### [facility] [address] [place] [address] Director Inbound Sales: Adolph Diaz MDHematocrit (Bld) [Volume fraction]38.4 %Normal 36.3-47.1MGoleta Valley Cottage HospitalComment on above:Performed By: #### CBC, PT, PTT, BMP #### [address] [address] Director Inbound Sales: Casey Marques MD #### ANICOT #### [facility] [address] [place] [address] Director Inbound Sales: Adolph Diaz MDHemoglobin (Bld) [Mass/Vol]12.0 g/dLNormal 11.9-15.1MGoleta Valley Cottage HospitalComment on above:Performed By: #### CBC, PT, PTT, BMP #### [address] [address] Director Inbound Sales: Casey Marques MD #### ANICOT #### [facility] [address] [place] [address] Director Inbound Sales: Adolph Diaz MDImmature granulocytes/100 WBC (Bld)1 %Hljv8JuzvmSt. Rose HospitalComment on above:Performed By: #### CBC, PT, PTT, BMP #### [address] [address] Director Inbound Sales: Casey Marques MD #### ANICOT #### [facility] [address] [place] [address] Director Inbound Sales: Adolph Diaz MDLymphocytes (Bld) [#/Vol]2.21 10*3/uLNormal 1.10-3.70C[facility] Medical CenterComment on above:Performed By: #### CBC, PT, PTT, BMP #### [address] [address] Director Inbound Sales: Casey Marques MD #### ANICOT #### [facility] [address] [place], [place] [id number] Director Inbound Sales: Adolph Diaz MDLymphocytes/100 WBC (Bld)21 %Pkm17-77UzmgeCincinnati Children'S Hospital Medical CenterComment on above:Performed By: #### CBC, PT, PTT, BMP #### [place] [address] Director Inbound Sales: Casey Marques MD #### ANICOT #### [address] [id number] Director Inbound Sales: NIMCO Ward (RBC) [Entitic mass]26.5 xrZtuzex82.2-33.5 [facility] Medical CenterComment on above:Performed By: #### CBC, PT, PTT, BMP #### [address] [id number] Director Inbound Sales: Casey Marques MD #### ANICOT #### [facility] [address] [place] [address] Director Inbound Sales: NIMCO WardC (RBC) [Mass/Vol]31.3 g/uUPnwald65.4-34.8 [facility] Medical CenterComment on above:Performed By: #### CBC, PT, PTT, BMP #### [address] [id number] Director Inbound Sales: Casey Marques MD #### ANICOT #### [facility] [address] [place], [place] [id number] Director Inbound Sales: Adolph Diaz, MDMCV (RBC) [Entitic vol]85.0 iPMlfsfq86.6-102.9 [facility] Medical CenterComment on above:Performed By: #### CBC, PT, PTT, BMP #### [address] [address] Director Inbound Sales: Casey Marques MD #### ANICOT #### [facility] [address] [place] [address] Director Inbound Sales: YESSICA aWrdonocytes (Bld) [#/Vol]0.71 10*3/uLNormal 0.10-1.20[facility] Medical CenterComment on above:Performed By: #### CBC, PT, PTT, BMP #### [address] [address] Director Inbound Sales: Casey Marques MD #### ANICOT #### [facility] [address] [place] [address] Director Inbound Sales: YESSICA Wardonocytes/100 WBC (Bld)7 %Normal3-12C[facility] Hospital Medical CenterComment on above:Performed By: #### CBC, PT, PTT, BMP #### [address] [address] Director Inbound Sales: Casey Marques MD #### ANICOT #### [facility] [address] [place] [address] Director Inbound Sales: Adolph Diaz MDNeutrophil (Seg)67 %Cxql85-44EnpgoCincinnati Children'S Hospital Medical CenterComment on above:Performed By: #### CBC, PT, PTT, BMP #### [address] [address] Director Inbound Sales: Casey Marques MD #### ANICOT #### [facility] [address] [place] [address] Director Inbound Sales: Adolph Diaz, MDNRBC Automated0.0 per 100 WBCNormal0.0C[facility]S Hospital Medical CenterComment on above:Performed By: #### CBC, PT, PTT, BMP #### [address] [address] Director Inbound Sales: Casey Marques MD #### ANICOT #### [facility] [address] [place] [address] Director Inbound Sales: Stephan Ward mean volume (Bld) [Entitic vol]8.6 fL Normal8.1-13.5[facility] Hospital Medical CenterComment on above:Performed By: #### CBC, PT, PTT, BMP #### [address] [address] Director Inbound Sales: Casey Marques MD #### ARJUNICOT #### [facility] [address] [place] [address] Director Inbound Sales: Yajaira Ward (Bld) [#/Vol]256 10*3/dNNfslcj478-983 [facility] Medical CenterComment on above:Performed By: #### CBC, PT, PTT, BMP #### [address] [address] Director Inbound Sales: Casey Marques MD #### ANICOT #### [facility] [address] [place] [address] Director Inbound Sales: MADDI WardBC (Bld) [#/Vol]4.52 10*6/uLNormal3.95-5.11[facility] Medical CenterComment on above:Performed By: #### CBC, PT, PTT, BMP #### [address] [address] Director Inbound Sales: Caesy Marques MD #### ANICOT #### [facility] [address] [place] [address] Director Inbound Sales: RAYMON Ward morphology finding Nom (Bld)ANISOCYTOSIS PRESENTSelect Medical Specialty Hospital - AkronComment on above:Performed By: #### CBC, PT, PTT, BMP #### [facility] [address] [place] [address] Director Inbound Sales: Casey Marques MD #### ANICOT #### [facility] [address] [place] [address] Director Inbound Sales: DIEGO Ward (Bld) [#/Vol]10.7 10*3/uLNormal3.5-11.3[facility]on Municipal HospitalComment on above:Performed By: #### CBC, PT, PTT, BMP #### [facility] [address] [place] [address] Director Inbound Sales: Casey Marques MD #### ANICOT #### [facility] [address] [place] [address] Director Inbound Sales: Arnav Ward PerformedNOT REPORTEDSelect Medical Specialty Hospital - AkronComment on above:Performed By: #### CBC, PT, PTT, BMP #### [facility] [address] [place] [address] Director Inbound Sales: Casey Marques MD #### ANICOT #### [facility] [address] [place] [address] Director Inbound Sales: Stephan Ward EstimateNOT REPORTEDSelect Medical Specialty Hospital - AkronComment on above:Performed By: #### CBC, PT, PTT, BMP #### [facility] [address] [place] [address] Director Inbound Sales: Casey Marques MD #### ANICOT #### [facility] [address] [place] [address] Director Inbound Sales: DIEGO Ward MorphologyNOT REPORTEDNormalCincinnati Children'S Hospital Medical CenterComment on above:Performed By: #### CBC, PT, PTT, BMP #### [facility] [address] [place] [phone] Director Inbound Sales: Casey Marques MD #### ANICOT #### [facility] [address] [place] [address] Director Inbound Sales: JACINTO Wardurgical Pathologyon [id number] Pathology Report-- Diagnosis -- STOMACH, SLEEVE GASTRECTOMY: [...] with no areas of granularity or masses. Industrial Relations Manager sections 1cs. tm Microscopic Description Sections of gastric mucosa show increased lymphocytes and plasma cells in the lamina propria. There is no evidence of acute inflammation, intestinal metaplasia or dysplasia. There is no evidence of organisms suspicious for Helicobacter with the routine H&E stains. SURGICAL PATHOLOGY CONSULTATION Patient Name: JAZ SANDERS [facility] Rec: [id number] Path Number: [id number] [employer] [facility] ANATOMIC PATHOLOGY [address] [place] [address]. [place], [place] [address] [facility]- [place], KYBasic Metabolic Panelon [id number] gap [Moles/Vol]13 mmol/L9 - 17 mmol/LMercy Health- [place], KYBun/Cre RatioNOT REPORTEDMercy Health- [place], KYCalcium [Mass/Vol]9.4 mg/dL8.6 - 10.4 mg/dLMercy Health- [place], KYChloride [Moles/Vol]104 mmol/L98 - 107 mmol/[facility], [place] CO2 [Moles/Vol]23 mmol/L20 - 31 mmol/[facility] [place], KYCreatinine [Mass/Vol] 0.73 mg/dL0.5 - 0.9 mg/dLKindred Hospital [place], KYGFR >60>60 mL/min [facility], KYGFR Non->60>60 mL/minKindred Hospital [place], [place] GFR/1.73 sq M predicted among non-blacks MDRD (S/P/Bld) [Vol rate/Area]NOT REPORTED[facility] Hospital [facility], KYGFR/1.73 sq M predicted among non-blacks MDRD (S/P/Bld) [Vol rate/Area][facility], KYComment on above:Average GFR for 20-29 years old: 116 mL/min/1.73sq m Chronic Kidney Disease: <60 mL/min/1.73sq m Kidney failure: <15 mL/min/1.73sq m eGFR calculated using average adult body mass. Additional eGFR calculator available at: http://www.Control de Pacientes/multiple_crcl_2011.htm Glucose [Mass/Vol]98 mg/dL70 - 99 mg/dLKindred Hospital [place], KYPotassium [Moles/Vol] 4.1 mmol/L3.7 - 5.3 mmol/[facility], KYSodium [Moles/Vol]140 mmol/L135 - 144 mmol/[facility], KYUrea nitrogen [Mass/Vol]6 mg/dL6 - 20 mg/dLKindred Hospital [place], KYBasic Metabolic Profon 05-07-2020(cont.)[facility] - AkronComment on above:Result Comment: Average GFR for 20-29 years old: 116 mL/min/1.73sq m Chronic Kidney Disease: <60 mL/min/1.73sq m Kidney failure: <15 mL/min/1.73sq m eGFR calculated using average adult body mass. Additional eGFR calculator available at: http://www.Control de Pacientes/multiple_crcl_2012.htmPerformed By: #### CBC, BMP #### [facility] [place] [address] Director Inbound Sales: Casey Marques MDAnion gap [Moles/Vol]13 mmol/LNormal9-17[facility] Medical CenterComment on above:Performed By: #### CBC, BMP #### [facility] [address] [place] [address] Director Inbound Sales: Casey Marques MDCalcium [Mass/Vol]9.4 mg/dLNormal8.6-10.4[facility] Medical CenterComment on above:Performed By: #### CBC, BMP #### [facility] [address] [place] [address] Director Inbound Sales: Casey Marques MDChloride [Moles/Vol]104 mmol/XBkebof25-176RkxmyCincinnati Children'S Hospital Medical CenterComment on above:Performed By: #### CBC, BMP #### [facility] [address] [place] [address] Director Inbound Sales: Casey Marques, MDCO2 [Moles/Vol]23 mmol/WDqlkcu97-96VtyebCincinnati Children'S Hospital Medical CenterComment on above:Performed By: #### CBC, BMP #### [facility] [address] [place] [address] Director Inbound Sales: Casey Marques MDCreatinine [Mass/Vol]0.73 mg/dLNormal0.50-0.90 [facility] Medical CenterComment on above:Performed By: #### CBC, BMP #### [facility] [address] [place] [address] Director Inbound Sales: SIRISHA Capellan, Amer>60Normal>60[facility] Medical CenterComment on above:Performed By: #### CBC, BMP #### [facility] [address] [place] [address] Director Inbound Sales: Casey Madoff, MDGFR,non Amer>60Normal>60[facility] Medical CenterComment on above:Performed By: #### SAGRARIO, BMP #### [facility] [address] [place] [address] Director Inbound Sales: Casey Marques MDGlucose [Mass/Vol]98 mg/jKEuednb84-55PxqseGoleta Valley Cottage HospitalComment on above:Performed By: #### CBC, BMP #### [facility] [address] [place] [address] Director Inbound Sales: VERONICA Capellanotassium [Moles/Vol]4.1 mmol/LNormal3.7-5.3 [facility] Medical CenterComment on above:Performed By: #### SAGRARIO, BMP #### [address] [address] Director Inbound Sales: JACINTO Capellanodium [Moles/Vol]140 mmol/VGcnnta012-486VkpclCincinnati Children'S Hospital Medical CenterComment on above:Performed By: #### SAGRARIO, BMP #### [address] [address] Director Inbound Sales: Casey Marques MDUrea nitrogen [Mass/Vol]6 mg/dLNormal6-20[facility] Medical CenterComment on above:Performed By: #### SAGRARIO, BMP #### [address] [address] Director Inbound Sales: Casey Marques MDBUN/CRE RatioNOT REPORTEDNormal9-20[facility] Medical CenterComment on above:Performed By: #### SAGRARIO, BMP #### [facility] [address] [place] [address] Director Inbound Sales: JACINTO Capellantaging:NOT REPORTEDNormalCincinnati Children'S Hospital Medical CenterComment on above:Performed By: #### SAGRARIO, BMP #### [facility] [address] [place] [address] Director Inbound Sales: Nacho Capellan 36-67-9101Wmwzdthrrau distribution width (RBC) [Ratio]14.4 %Lznfxo22.8-14.4[facility] Medical CenterComment on above:Performed By: #### CBC, BMP #### [address] [address] Director Inbound Sales: Casey Marques MDHematocrit (Bld) [Volume fraction]40.4 %Normal 36.3-47.1MGoleta Valley Cottage HospitalComment on above:Performed By: #### CBC, BMP #### [place] [address] Director Inbound Sales: Casey Marques MDHemoglobin (Bld) [Mass/Vol]12.6 g/dLNormal 11.9-15.1MGoleta Valley Cottage HospitalComment on above:Performed By: #### CBC, BMP #### [place] [address] Director Inbound Sales: YESSICA CapellanCH (RBC) [Entitic mass]26.1 qgJezhkm30.2-33.5 [facility] Medical CenterComment on above:Performed By: #### CBC, BMP #### [place] [address] Director Inbound Sales: YESSICA CapellanCHC (RBC) [Mass/Vol]31.2 g/zAUawgec94.4-34.8 [facility] Medical CenterComment on above:Performed By: #### CBC, BMP #### [place] [address] Director Inbound Sales: YESSICA CapellanCV (RBC) [Entitic vol]83.8 kMIsohco00.6-102.9 [facility] Medical CenterComment on above:Performed By: #### CBC, BMP #### [address] [place] [address] Director Inbound Sales: Casey Marques MDNRBC Automated0.0 per 100 WBCNormal0.0C[facility] Medical CenterComment on above:Performed By: #### CBC, BMP #### [address] [address] Director Inbound Sales: Jose Capellantelet mean volume (Bld) [Entitic vol]8.7 fL Normal8.1-13.5[facility] Medical CenterComment on above:Performed By: #### CBC, BMP #### [facility] [address] [place] [address] Director Inbound Sales: VERONICA Capellanlatelets (Bld) [#/Vol]289 10*3/vMFmbwbl284-686 [facility] Medical CenterComment on above:Performed By: #### CBC, BMP #### [address] [address] Director Inbound Sales: Casey Marques MDRBC (Bld) [#/Vol]4.82 10*6/uLNormal3.95-5.11 [facility] Medical CenterComment on above:Performed By: #### CBC, BMP #### [address] [address] Director Inbound Sales: Casey Marques MDWBC (Bld) [#/Vol]13.7 10*3/uLHigh3.5-11.3MGoleta Valley Cottage HospitalComment on above:Performed By: #### CBC, BMP #### [address] [address] Director Inbound Sales: Casey Marques MDErythrocyte distribution width (RBC) [Ratio]14.4 %11.8 - 14.4 %[facility], KYHematocrit (Bld) [Volume fraction]40.4 %36.3 - 47.1 %[facility], KYHemoglobin (Bld) [Mass/Vol]12.6 g/dL11.9 - 15.1 g/dL [facility], CTInterpretation and review of laboratory resultsAbnormalMount Hamilton, KYMCH (RBC) [Entitic mass]26.1 pg25.2 - 33.5 pgMount [place], [place] MCHC (RBC) [Mass/Vol]31.2 g/dL28.4 - 34.8 g/dLMount [place], KYMCV (RBC) [Entitic vol]83.8 fL82.6 - 102.9 fLMount Hamilton, KYPlatelet mean volume (Bld) [Entitic vol]8.7 fL8.1 - 13.5 fLKindred Hospital Dayton, CTPlatelets (Bld) [#/Vol]289 10*3/uLKindred Hospital [place], CTRBC (Bld) [#/Vol]4.82 10*6/uL3.95 - 5.11 m/[facility], CTWBC (Bld) [#/Vol]0.0 10*3/uL0.0 per 100 WBCMount Hamilton, KYWBC (Bld) [#/Vol]13.7 10*3/uLHighMount Hamilton, KYFL ESOPHAGRAMon [id number] ESOPHAGRAMEXAMINATION: SINGLE CONTRAST ESOPHAGRAM 05/07/2020 HISTORY: ORDERING [...] Signed by: Petr Cullen MD 05/07/20 Final resultNoCoshocton Regional Medical CenterEXAMINATION: SINGLE CONTRAST ESOPHAGRAM 05/07/2020 HISTORY: ORDERING SYSTEM [...] gastric sleeve. No obstruction. No extravasation of contrast.[facility] PantryUNIVERSITY OF MISSOURI HEALTH CAREGerardo Mhpn Incoming Radiant Results From [employer] - 05/07/2020 10:04 AM EST EXAMINATION: SINGLE [...] of contrast. IMPRESSION: No extravasation of contrast. [facility] PantryUNIVERSITY OF MISSOURI HEALTH CAREJacob extravasation of contrast.[facility] HospitalVocus CommunicationsUNIVERSITY OF MISSOURI HEALTH CARENORMAPOCT urine pregnancyon [id number] HCG ( test) Ql (U)NegativeNEGATIVEOhiohealth Arthur G.[facility]. Bing, [facility], Cancer Center BMdrUNIVERSITY OF MISSOURI HEALTH CARE, NORMAComment on above:Specimens with hCG levels near the threshold of the test (25 mIU/mL) may give a negative or indeterminate result. In such cases, another test should be performed with a new specimen in 48-72 hours. If early is suspected clinically in this setting, correlation with quantitative serum b-hCG level is suggested. Basic Metabolic Panelon [id number] gap [Moles/Vol]10 mmol/L9 - 17 mmol/L [facility] HospitalVocus CommunicationsUNIVERSITY OF MISSOURI HEALTH CARE, KYBun/Cre RatioNOT REPORTEDOhiohealth [facility] BMdrUNIVERSITY OF MISSOURI HEALTH CARE, KYCalcium [Mass/Vol]9.5 mg/dL8.6 - 10.4 mg/dLOhiohealth Arthur G.H. Bing, Md, Cancer Center BMdrUNIVERSITY OF MISSOURI HEALTH CARE, KYChloride [Moles/Vol]103 mmol/L98 - 107 mmol/LMercAdventHealth Orlando, KYCO2 [Moles/Vol]19 mmol/LLow20 - 31 mmol/LMOhioHealth Nelsonville Health Center, KYCreatinine [Mass/Vol]0.9 mg/dL0.5 - 0.9 mg/dLKindred Hospital [place], KYGFR >60>60 mL/minKindred Hospital Dayton, KYGFR Non- >60>60 mL/minKindred Hospital [place], KYGFR/1.73 sq M predicted among non-blacks MDRD (S/P/Bld) [Vol rate/Area]NOT REPORTEDKindred Hospital [place], [place] GFR/1.73 sq M predicted among non-blacks MDRD (S/P/Bld) [Vol rate/Area][facility], KYComment on above:Average GFR for 20-29 years old: 116 mL/min/1.73sq m Chronic Kidney Disease: <60 mL/min/1.73sq m Kidney failure: <15 mL/min/1.73sq m eGFR calculated using average adult body mass. Additional eGFR calculator available at: http://www.Control de Pacientes/multiple_crcl_2011.htm Glucose [Mass/Vol]162 mg/bYKzzi57 - 99 mg/dLKindred Hospital [place], KYInterpretation and review of laboratory resultsAbnormalKindred Hospital Dayton, KYPotassium [Moles/Vol]3.9 mmol/L3.7 - 5.3 mmol/[facility], KYSodium [Moles/Vol]132 mmol/EFfc923 - 144 mmol/[facility], KYUrea nitrogen [Mass/Vol]10 mg/dL6 - 20 mg/dLKindred Hospital [place], KYBasic Metabolic Profon 05-06-2020(cont.)[facility] - AkronComment on above:Result Comment: Average GFR for 20- 29 years old: 116 mL/min/1.73sq m Chronic Kidney Disease: <60 mL/min/1.73sq m Kidney failure: <15 mL/min/1.73sq m eGFR calculated using average adult body mass. Additional eGFR calculator available at: http://www.Control de Pacientes/multiple_crcl_2012.htmPerformed By: #### CBC, BMP #### [facility] [place] [address] Director Inbound Sales: Casey Marques MDAnion gap [Moles/Vol]10 mmol/LNormal9-17[facility] Medical CenterComment on above:Performed By: #### CBC, BMP #### [facility] [address] [place] [address] Director Inbound Sales: Casey Marques MDCalcium [Mass/Vol]9.5 mg/dLNormal8.6-10.4[facility] Medical CenterComment on above:Performed By: #### CBC, BMP #### [facility] [address] [place] [address] Director Inbound Sales: Casey Marques MDChloride [Moles/Vol]103 mmol/SSrrkrn56-188UnhozCincinnati Children'S Hospital Medical CenterComment on above:Performed By: #### CBC, BMP #### [facility] [address] [place] [address] Director Inbound Sales: Casey Marques MDCO2 [Moles/Vol]19 mmol/PJps89-03KfmgaCincinnati Children'S Hospital Medical CenterComment on above:Performed By: #### CBC, BMP #### [facility] [address] [place] [address] Director Inbound Sales: Casey Marques MDCreatinine [Mass/Vol]0.90 mg/dLNormal0.50-0.90 [facility] CenterComment on above:Performed By: #### CBC, BMP #### [facility] [address] [place] [address] Director Inbound Sales: SIRISHA Capellan, Amer>60Normal>60[facility] Medical CenterComment on above:Performed By: #### CBC, BMP #### [facility] [address] [place] [address] Director Inbound Sales: Casey Madoff, MDGFR,non Amer>60Normal>60[facility] Medical CenterComment on above:Performed By: #### CBC, BMP #### [facility] [address] [place] [address] Director Inbound Sales: Casey Marques MDGlucose [Mass/Vol]162 mg/vVXoxs43-11ZprtcGoleta Valley Cottage HospitalComment on above:Performed By: #### CBC, BMP #### [facility] [address] [place] [address] Director Inbound Sales: VERONICA Capellanotassium [Moles/Vol]3.9 mmol/LNormal3.7-5.3 [facility] Medical CenterComment on above:Performed By: #### SAGRARIO, BMP #### [address] [address] Director Inbound Sales: JACINTO Capellanodium [Moles/Vol]132 mmol/HIif665-975CaimvCincinnati Children'S Hospital Medical CenterComment on above:Performed By: #### SAGRARIO, BMP #### [address] [address] Director Inbound Sales: Casey Marques MDUrea nitrogen [Mass/Vol]10 mg/dLNormal6-20[facility] Medical CenterComment on above:Performed By: #### CBC, BMP #### [address] [address] Director Inbound Sales: Casey Marques MDBUN/CRE RatioNOT REPORTEDNormal9-20[facility] Medical CenterComment on above:Performed By: #### CBC, BMP #### [address] [address] Director Inbound Sales: JACINTO Capellantaging:NOT REPORTEDNormalCincinnati Children'S Hospital Medical CenterComment on above:Performed By: #### CBC, BMP #### [facility] [address] [place] [address] [phone] Director Inbound Sales: Nacho Capellan 10-38-9065Hxbezqdntec distribution width (RBC) [Ratio]14.6 %High11.8-14.4[facility] Medical CenterComment on above:Performed By: #### CBC, BMP #### [address] [address] Director Inbound Sales: Casey Marques MDHematocrit (Bld) [Volume fraction]42.5 %Normal 36.3-47.1MGoleta Valley Cottage HospitalComment on above:Performed By: #### CBC, BMP #### [place] [address] Director Inbound Sales: Casey Marques MDHemoglobin (Bld) [Mass/Vol]12.8 g/dLNormal 11.9-15.1MGoleta Valley Cottage HospitalComment on above:Performed By: #### CBC, BMP #### [place] [address] Director Inbound Sales: YESSICA CapellanCH (RBC) [Entitic mass]26.9 bqBycvje12.2-33.5 [facility] Medical CenterComment on above:Performed By: #### CBC, BMP #### [place] [address] Director Inbound Sales: YESSICA CapellanCHC (RBC) [Mass/Vol]30.1 g/nXBwmrhn61.4-34.8 [facility] Medical CenterComment on above:Performed By: #### CBC, BMP #### [address] [address] Director Inbound Sales: YESSICA CapellanCV (RBC) [Entitic vol]89.3 vMIrwyal76.6-102.9 [facility] Medical CenterComment on above:Performed By: #### CBC, BMP #### [place] [address] Director Inbound Sales: RAMONE Capellan Automated0.0 per 100 WBCNormal0.0C[facility] Medical CenterComment on above:Performed By: #### CBC, BMP #### [facility] [address] [place] [address] Director Inbound Sales: Jose Capellantebrigid mean volume (Bld) [Entitic vol]8.4 fL Normal8.1-13.5[facility] Medical CenterComment on above:Performed By: #### CBC, BMP #### [address] [address] Director Inbound Sales: VERONICA Capellanlatelets (Bld) [#/Vol]300 10*3/rBHkjzwf334-758 [facility] Medical CenterComment on above:Performed By: #### CBC, BMP #### [address] [address] Director Inbound Sales: MADDI CapellanBC (Bld) [#/Vol]4.76 10*6/uLNormal3.95-5.11 [facility] Medical CenterComment on above:Performed By: #### CBC, BMP #### [address] [address] Director Inbound Sales: TIN CapellanBC (Bld) [#/Vol]14.3 10*3/uLHigh3.5-11.3MGoleta Valley Cottage HospitalComment on above:Performed By: #### CBC, BMP #### [facility] [address] [place] [address] Director Inbound Sales: NIDIA Capellan without Diffon [phone] distribution width (RBC) [Ratio]14.6 %High11.8 - 14.4 %[place], [place] Hematocrit (Bld) [Volume fraction]42.5 %36.3 - 47.1 %[place] Hemoglobin (Bld) [Mass/Vol]12.8 g/dL11.9 - 15.1 g/dLMount [place], [place] Interpretation and review of laboratory resultsAbnormalLima City HospitalH (RBC) [Entitic mass]26.9 pg25.2 - 33.5 pgLima City HospitalHC (RBC) [Mass/Vol]30.1 g/dL28.4 - 34.8 g/dLMount [place], KYMCV (RBC) [Entitic vol] 89.3 fL82.6 - 102.9 fLMount [place], KYPlatelet mean volume (Bld) [Entitic vol]8.4 fL8.1 - 13.5 fLMount Hamilton, KYPlatelets (Bld) [#/Vol]300 10*3/uL [place], KYRBC (Bld) [#/Vol]4.76 10*6/uL3.95 - 5.11 m/uLMount Hamilton, KYWBC (Bld) [#/Vol]14.3 10*3/uLHighMount [place], KYWBC (Bld) [#/Vol]0.0 10*3/uL0.0 per 100 WBCMount Hamilton, KYSurgical Pathologyon 05-06-2020 Surgical Pathology(NOTE) -- Diagnosis [...] with no areas of granularity or masses. Industrial Relations Manager sections 1cs. tm Microscopic Description Sections of gastric mucosa show increased lymphocytes and plasma cells in the lamina propria. There is no evidence of acute inflammation, intestinal metaplasia or dysplasia. There is no evidence of organisms suspicious for Helicobacter with the routine BRI stains. SURGICAL PATHOLOGY CONSULTATION Patient Name: JAZ SANDERS [facility] Rec: [id number] Path Number: [id number] [facility] [employer] CONSULTING PATHOLOGISTS [facility] EMERGENCY DEPARTMENT ANATOMIC PATHOLOGY [address] [place] [phone] [facility] Hospital - AkronComment on above: Performed By: #### CBC, PT, PTT, BMP #### [facility] [address] [place] [address] [phone] Director Inbound Sales: Casey Marques MD #### ANICOT #### [facility] [address] [place] [address] Director Inbound Sales: Jhonny Ward-2on [id number]-CoV-2NKettering Health Behavioral Medical CenterComment on above:Performed By: #### COVID #### [facility] Hospital[facility] [address] [place] [address] [phone] Director Inbound Sales: Tracie Capellan2Not DetectedAudrain Medical CenteralNOTDEMemorial HospitalComment on above:Result Comment: The specimen is NEGATIVE for SARS-CoV-2, the novel coronavirus associated with COVID-19. A negative result does not rule out COVID-19. Bernard SARS-CoV-2 for use on the Bernard [employer]0/8800 [employer] is a real-time RT-PCR test intended [...] this assay. Fact sheet for Healthcare Providers: https://www.fda.gov/media/579498/download Fact sheet for Patients: https://www.fda.gov/media/588063/download METHODOLOGY: RT-PCRPerformed By: #### COVID #### [facility] [address] [place] [address] Director Inbound Sales: JAMEY Capellan-CoV-2,[facility] Comment on above:Performed By: #### COVID #### [facility] [address] [place] [address] Director Inbound Sales: YU CapellanCoV-2on [id number]-CoV-2 Source .NASOPHARYNGEAL SWABMarion HospitalComment on above:Performed By: #### COVID #### [facility] [address] [place] [address] Director Inbound Sales: Ilana Capellan [address]-VL-Kvuezaqo<2NormalCincinnati Children'S Hospital Medical CenterComment on above:Performed By: #### CBC, PT, PTT, BMP #### [facility] [address] [place] [address] Director Inbound Sales: Casey Marques MD #### ANICOT #### [facility] [address] [place], [place] [phone] Director Inbound Sales: Ariella Ward<2NormalCincinnati Children'S Hospital Medical Center Comment on above:Performed By: #### CBC, PT, PTT, BMP #### [facility] [address] [place] [address] Director Inbound Sales: Casey Marques MD #### ANICOT #### [facility] [address] [place], [place] [id number] Director Inbound Sales: Kalie Warde<2NormalCincinnati Children'S Hospital Medical Center Comment on above:Result Comment: (NOTE) Consistent with [...] positive. Test developed and characteristics determined by [employer]. See Compliance Statement B: [employer] [place]/CS Performed By: [employer] [address] [place] [address] [employer] Business Development: VERONICA Barerformed By: #### CBC, PT, PTT, BMP #### [facility] [place] [address] Director Inbound Sales: Casey Marques MD #### ANICOT #### [employer] [address] [place] [address] Director Inbound Sales: Shani WardLexington Va Medical Center [address]-BL-Hbkxhpee<2ng/mL [facility]- [place], KYCotinine<2ng/mLMercy Health Springfield Regional Medical CenterJetabroad Health- [place], KYNicotine<2ng/mLMercy Health- [place], KYComment on above:(NOTE) Consistent with [...] positive. Test developed and characteristics determined by [employer]. See Compliance Statement B: [employer] [place]/CS Performed By: [employer] [address] [place] [address] [employer] Business Development: Lynn Layne MD EKG 12 Leadon [id number] Kamq58PRVYfhiqSumma Health Wad[facility], KYP Rfui04xylwyklJrurmMemorial Hospital, KYP-R Fevjllai718 [facility] [place], KYQ-T Qyoqtcnh[address] [facility], KYQRS Wrgibnyq[address] [facility], KYQTc Calculation (Tamelatt)[address] [facility], KYR Zepz03owpsbvkHsgoq Health- [place], KYT Ukan16jahqlbfPujkiFort [place] Hospital, KYVentricular Jgbj68DKEByarzSumma Health Wadsworth - Rittman [facility] Center, KYNormal sinus rhythm with sinus arrhythmia Prolonged QT Abnormal ECG No previous ECGs availableKindred Hospital Dayton, [place], Mhpn Incoming Ekg [facility] [place] 04/23/2020 12:32 PM EST Normal sinus rhythm with sinus arrhythmia Prolonged QT Abnormal ECG No previous ECGs availableKindred Hospital Dayton, CTAPTDignity Health Arizona General Hospital [id number] Coag (Bld) [Time]22.2 nLujtbz72.5-30.5C[facility] Medical CenterComment on above: Result Comment: IV Heparin Therapy Range: 48.6-77.8Performed By: #### CBC, PT, PTT, BMP #### [facility] [address] [place] [address] Director Inbound Sales: Casey Marques MD #### ANICOT #### [employer] [address] [place] [address] Director Inbound Sales: Adolph Diaz MDaPTT Coag (Bld) [Time]22.2 [facility], [place] Comment on above: IV Heparin Therapy Range: 48.6-77.8 Basic Metabolic Panelon 17-64-4027Oajcr gap [Moles/Vol]12 mmol/L9 - 17 mmol/L [facility], KYBun/Cre RatioNOT REPORTEDKindred Hospital Dayton, KYCalcium [Mass/Vol]9.2 mg/dL8.6 - 10.4 mg/dLKindred Hospital Dayton, KYChloride [Moles/Vol]104 mmol/L98 - 107 mmol/LMOhioHealth Nelsonville Health Center, KYCO2 [Moles/Vol]23 mmol/L20 - 31 mmol/L [facility], KYCreatinine [Mass/Vol]0.69 mg/dL0.5 - 0.9 mg/dLKindred Hospital Dayton, KYGFR >60>60 mL/minKindred Hospital Dayton, KYGFR Non->60>60 mL/minKindred Hospital Dayton, KYGFR/1.73 sq M predicted among non- blacks MDRD (S/P/Bld) [Vol rate/Area]NOT REPORTEDKindred Hospital Dayton, KYGFR/1.73 sq M predicted among non-blacks MDRD (S/P/Bld) [Vol rate/Area][facility] [place], [place] Comment on above:Average GFR for 20-29 years old: 116 mL/min/1.73sq m Chronic Kidney Disease: <60 mL/min/1.73sq m Kidney failure: <15 mL/min/1.73sq m eGFR calculated using average adult body mass. Additional eGFR calculator available at: http://www.Control de Pacientes/multiple_crcl_2012.htm Glucose [Mass/Vol]123 mg/fRXilm47 - 99 mg/dLKindred Hospital Dayton, KYInterpretation and review of laboratory resultsAbnormalKindred Hospital Dayton, KYPotassium [Moles/Vol]4.1 mmol/L3.7 - 5.3 mmol/LMOhioHealth [facility]ville [facility], KYSodium [Moles/Vol]139 mmol/L135 - 144 mmol/LMOhioHealth Nelsonville Health Center, KYUrea nitrogen [Mass/Vol]7 mg/dL6 - 20 mg/dLKindred Hospital Dayton, KYBasic Metabolic Profon 04-22-2020(cont.)[facility] - AkronComment on above:Result Comment: Average GFR for 20-29 years old: 116 mL/min/1.73sq m Chronic Kidney Disease: <60 mL/min/1.73sq m Kidney failure: <15 mL/min/1.73sq m eGFR calculated using average adult body mass. Additional eGFR calculator available at: http://www.[employer] [place]/multiple_crcl_2012.htmPerformed By: #### CBC, PT, PTT, BMP #### [facility] [address] [place] [address] [phone] Director Inbound Sales: Casey Marques MD #### ANICOT #### [facility] [address] Director Inbound Sales: Dontae Ward gap [Moles/Vol]12 mmol/LNormal9-17[facility] Medical CenterComment on above:Performed By: #### CBC, PT, PTT, BMP #### [facility] [address] [place] [address] Director Inbound Sales: Casey Marques MD #### ANICOT #### [facility] [address] Director Inbound Sales: XIN Wardalcium [Mass/Vol]9.2 mg/dLNormal8.6-10.4[facility] Medical CenterComment on above:Performed By: #### CBC, PT, PTT, BMP #### [facility] [address] [place] [address] [phone] Director Inbound Sales: Casey Marques MD #### ANICOT #### [facility] [address] Director Inbound Sales: XIN Wardhloride [Moles/Vol]104 mmol/DFpzrka19-012DlevrCincinnati Children'S Hospital Medical CenterComment on above:Performed By: #### CBC, PT, PTT, BMP #### [facility] [address] [place] [address] [phone] Director Inbound Sales: Casey Marques MD #### ANICOT #### [facility] [address] [place] [address] Director Inbound Sales: XIN WardO2 [Moles/Vol]23 mmol/MEjnlcw15-21XcqmvCincinnati Children'S Hospital Medical CenterComment on above:Performed By: #### CBC, PT, PTT, BMP #### [facility] [address] [place] [address] Director Inbound Sales: Casey Marques MD #### ANICOT #### [facility] [address] [place] [address] Director Inbound Sales: XIN Wardreatinine [Mass/Vol]0.69 mg/dLNormal0.50-0.90 [facility] Medical CenterComment on above:Performed By: #### CBC, PT, PTT, BMP #### [facility] [address] [place] [address] Director Inbound Sales: Casey Marques MD #### ANICOT #### [facility] [address] [place], [place] [id number] Director Inbound Sales: Adolph Diaz MDGFR, Amer>60Normal>60[facility] Medical CenterComment on above:Performed By: #### CBC, PT, PTT, BMP #### [facility] [address] [place] [address] Director Inbound Sales: Casey Marques MD #### ANICOT #### [facility] [address] [place] [address] Director Inbound Sales: Adolph Diaz MDGFR,non Amer>60Normal>60[facility] CenterComment on above:Performed By: #### CBC, PT, PTT, BMP #### [facility] [address] [place] [address] Director Inbound Sales: Casey Marques MD #### ANICOT #### [facility] [address] [place] [address] Director Inbound Sales: Adolph Diaz MDGlucose [Mass/Vol]123 mg/wJVfgw81-30LglvmGoleta Valley Cottage HospitalComment on above:Performed By: #### CBC, PT, PTT, BMP #### [address] [address] Director Inbound Sales: Casey Marques MD #### ANICOT #### [facility] [address] [place] [address] Director Inbound Sales: VERONICA Wardotassium [Moles/Vol]4.1 mmol/LNormal3.7-5.3MGoleta Valley Cottage HospitalComment on above:Performed By: #### CBC, PT, PTT, BMP #### [address] [address] Director Inbound Sales: Casey Marques MD #### ANICOT #### [address] [address] Director Inbound Sales: JACINTO Wardodium [Moles/Vol]139 mmol/YLfebcj941-696XbekwCincinnati Children'S Hospital Medical CenterComment on above:Performed By: #### CBC, PT, PTT, BMP #### [address] [address] Director Inbound Sales: Casey Marques MD #### ANICOT #### [facility] [address] [place] [address] Director Inbound Sales: Adolph Diaz MDUrea nitrogen [Mass/Vol]7 mg/dLNormal6-20[facility] Medical CenterComment on above:Performed By: #### CBC, PT, PTT, BMP #### [address] [address] Director Inbound Sales: Casey Marques MD #### ANICOT #### [facility] [address] [place] [address] Director Inbound Sales: ANTONIETA Ward/CRE RatioNOT REPORTEDNoonslow memorial hospital920C[facility] Medical CenterComment on above:Performed By: #### CBC, PT, PTT, BMP #### [facility] [address] [place] [address] Director Inbound Sales: Casey Marques MD #### ANICOT #### [facility] [address] [place] [address] Director Inbound Sales: JACINTO Wardtaging:NOT REPORTEDNormalCincinnati Children'S Hospital Medical CenterComment on above:Performed By: #### CBC, PT, PTT, BMP #### [address] [address] Director Inbound Sales: Casey Marques MD #### ANICOT #### [facility] [address] [place] [address] Director Inbound Sales: Nacho Ward [id number] distribution width (RBC) [Ratio]14.6 %High11.8-14.4[facility] Medical CenterComment on above:Performed By: #### CBC, PT, PTT, BMP #### [address] [address] Director Inbound Sales: Casey Marques MD #### ANICOT #### [facility] [address] [place] [address] Director Inbound Sales: Adolph Diaz MDHematocrit (Bld) [Volume fraction]40.8 %Normal 36.3-47.1[facility] Municipal HospitalComment on above:Performed By: #### CBC, PT, PTT, BMP #### [address] [address] Director Inbound Sales: Casey Marques MD #### ANICOT #### [facility] [address] [place], [place] [id number] Director Inbound Sales: Adolph Diaz MDHemoglobin (Bld) [Mass/Vol]12.8 g/dLNormal 11.9-15.1MGoleta Valley Cottage HospitalComment on above:Performed By: #### CBC, PT, PTT, BMP #### [address] [address] Director Inbound Sales: aCsey Marques MD #### ANICOT #### [facility] [address] [place], [place] [id number] Director Inbound Sales: YESSICA WardCH (RBC) [Entitic mass]26.5 xxMzamfh88.2-33.5 [facility] Medical CenterComment on above:Performed By: #### CBC, PT, PTT, BMP #### [address] [address] Director Inbound Sales: Casey Marques MD #### ANICOT #### [facility] [address] [place], [place] [id number] Director Inbound Sales: NIMCO WardC (RBC) [Mass/Vol]31.4 g/xTCbydid67.4-34.8 [facility] Medical CenterComment on above:Performed By: #### CBC, PT, PTT, BMP #### [address] [address] Director Inbound Sales: Casey Marques MD #### ANICOT #### [facility] [address] [place], [place] [id number] Director Inbound Sales: YESSICA WardCV (RBC) [Entitic vol]84.5 sDBmclvv06.6-102.9 [facility] Medical CenterComment on above:Performed By: #### CBC, PT, PTT, BMP #### [address] [address] Director Inbound Sales: Casey Marques MD #### ANICOT #### [facility] [address] [place] [address] Director Inbound Sales: Adolph Diaz MDNRBC Automated0.0 per 100 WBCNormal0.0C[facility] Medical CenterComment on above:Performed By: #### CBC, PT, PTT, BMP #### [place] [address] Director Inbound Sales: Casey Marques MD #### ANICOT #### [facility] [address] [place] [address] Director Inbound Sales: Stephan Ward mean volume (Bld) [Entitic vol]8.7 fL Normal8.1-13.5[facility] Medical CenterComment on above:Performed By: #### CBC, PT, PTT, BMP #### [place] [address] Director Inbound Sales: Casey Marques MD #### ANICOT #### [facility] [address] [place] [address] Director Inbound Sales: Yajaira Ward (Bld) [#/Vol]298 10*3/qIXenkwj617-717 [facility] Medical CenterComment on above:Performed By: #### CBC, PT, PTT, BMP #### [place] [address] Director Inbound Sales: Casey Marques MD #### ANICOT #### [facility] [address] [place] [address] Director Inbound Sales: RAYMON Ward (Bld) [#/Vol]4.83 10*6/uLNormal3.95-5.11[facility] Medical CenterComment on above:Performed By: #### CBC, PT, PTT, BMP #### [facility] [address] [place] [address], [place] [address] Director Inbound Sales: Casey Marques MD #### ANICOT #### [facility] [address] [place] [address] Director Inbound Sales: Adolph Diaz MDWBC (Bld) [#/Vol]10.8 10*3/uLNormal3.5-11.3[facility] HospitalComment on above:Performed By: #### CBC, PT, PTT, BMP #### [facility] [address] [place], [place] [phone] Director Inbound Sales: Casey Marques MD #### ANICOT #### [facility] [address] [place] [address] Director Inbound Sales: Adolph Diaz MDErythrocyte distribution width (RBC) [Ratio]14.6 %High11.8 - 14.4 %[facility], KYHematocrit (Bld) [Volume fraction]40.8 % 36.3 - 47.1 %[facility], KYHemoglobin (Bld) [Mass/Vol]12.8 g/dL11.9 - 15.1 g/dLKindred Hospital Dayton, KYInterpretation and review of laboratory resultsAbnormal [facility], [facility] STIGLERH (RBC) [Entitic mass]26.5 pg25.2 - 33.5 pgKindred Hospital [place], [facility] STIGLERHC (RBC) [Mass/Vol]31.4 g/dL28.4 - 34.8 g/dLKindred Hospital Dayton, [facility] STIGLERV (RBC) [Entitic vol]84.5 fL82.6 - 102.9 fLKindred Hospital Dayton, CTPlatelet mean volume (Bld) [Entitic vol]8.7 fL8.1 - 13.5 fLHenry County Hospital- [place], KYPlatelets (Bld) [#/Vol]298 10*3/uLHenry County Hospital- [place], KYRBC (Bld) [#/Vol]4.83 10*6/uL3.95 - 5.11 m/[facility], KYWBC (Bld) [#/Vol]10.8 10*3/uLKindred Hospital DaytonTRACEBC (Bld) [#/Vol]0.0 10*3/uL0.0 per 100 WBCKindred Hospital DaytonNORMAOtheron [id number] acute cardiopulmonary findingsKindred Hospital DaytonNORMAEXAMINATION: TWO XRAY VIEWS OF THE CHEST 04/22/2020 2:46 pm COMPARISON: Baseline examination HISTORY:ORDERING SYSTEM PROVIDED HISTORY: preop gastric bypass [employer] TECHNOLOGIST PROVIDED HISTORY: preop gastric bypass Ben En Y Reason for Exam: preop gastric bypass FINDINGS: Normal cardiopericardialsilhouette There are no significant pleural, parenchymal, mediastinal or osseous findingsKindred Hospital DaytonNORMASilver Madrid Incoming Radiant Results From [facility] - 04/22/2020 3:28 PM EST EXAMINATION: TWO XRAY VIEWS OF THE CHEST 04/22/2020 2:46 pm COMPARISON: Baseline examination HISTORY: ORDERING SYSTEM PROVIDED HISTORY: preop gastric bypass Ben [employer] Y TECHNOLOGIST PROVIDED HISTORY: preop gastric bypass Ben En Y Reason for Exam: preop gastric bypass FINDINGS: Normal cardiopericardial silhouette There are no significant pleural, parenchymal, mediastinal or osseous findings IMPRESSION: No acute cardiopulmonary findings [facility] Hospital DaytonEricka [id number] Coag (PPP) [Relative time]0.9 {INR}Normal [facility] Medical CenterComment on above:Result Comment: Therapeutic Range: Moderate Anticoagulant Intensity: INR = 2.0-3.0 High Anticoagulant Intensity: INR = 2.5-3.5Performed By: #### CBC, PT, PTT, BMP #### [address] [place], [place] [id number] Director Inbound Sales: Casey Marques MD #### ANICOT #### [facility] [address] [place] [address] Director Inbound Sales: CULLEN Ward Coag (PPP) [Time]9.3 sNormal9.0-12.0[facility] CenterComment on above:Performed By: #### CBC, PT, PTT, BMP #### [address] [place] [address] Director Inbound Sales: Casey Marques MD #### ANALI #### [facility] [address] [place] [address] Director Inbound Sales: VERONICA Wardrotime-INRon [id number] Coag (PPP) [Relative time]0.9 {INR}[employer], KYComment on above: Therapeutic Range: Moderate Anticoagulant Intensity: INR = 2.0-3.0 High Anticoagulant Intensity: INR = 2.5-3.5 PT Coag (PPP) [Time]9.3 sM[employer], KYXR CHEST (2 VW)on [id number] CHEST (2 VW)EXAMINATION: TWO XRAY VIEWS OF [...] Signed by: Roxanne Avitia MD 04/22/20 Final resultNoalCincinnati Children'S Hospital Medical Center Vital Signs Date TimeVital SignValuePerforming ZmzbfxtncSihhtwxc13-60-7491 14:43-0400Body mass index (BMI) [Ratio]39.77 kg/m2Jojo OGDEN Work Phone: [facility] HospitalXvsadhfupw14-49-4606 14:43-0400Body qodvtr196.33 kgJojo OGDEN Work Phone: [facility] SystemRynvflmsmf99-32-8947 14:43-0400Diastolic blood uxyokdqc98 mm[Hg]Jojo OGDEN Work Phone: [facility]Span[facility] SystemWjyblsxsgm92-53-0159 14:43-0400Systolic blood hiimnfft108 mm[Hg]Jojo OGDEN Work Phone: [facility]Span[facility] Health SystemSihehohzrh11-17-4829 11:34-0400Body mass index (BMI) [Ratio]38.49 kg/n6OqilmnruMima Duenas MANAGER PAPER Work Phone: 1(475)409-[address] [place], [place] [address]Ouqfdvxqwf21-67-7359 11:34-0400Body pikuuj791.19 kgMima Duenas MANAGER PAPER Work Phone: 1(369)321-[address] [place], [place] [address]Hlhvkezyad88-50-1826 11:34-0400Diastolic blood goffjoda00 mm[Hg]Mima Duenas MANAGER PAPER Work Phone: 1(175)693-[address] [place], [place] [address]Bbdfabkdxc92-75-6198 11:34-0400Systolic blood hcrydrpw395 mm[Hg]Mima Duenas MANAGER PAPER Work Phone: 1(292)861-[address] [place], [place] [address]Bxncyqmtbs89-18-4115 10:01-0400Body mass index (BMI) [Ratio]36.79 kg/m2Jojo Ames PA Work Phone: 1(466)303-[address] [place], [place] [address]Lrjgoxilgc21-34-0563 10:01-0400Body ofokga693.66 kgAmy De [place] PA Work Phone: 1(466)937-[address] [place], [place] [address]Wxwiqfwciz23-44-7295 10:01-0400Diastolic blood mm[Hg]Jojo Pelaezey PA Work Phone: 1(360)759-[address] [place], [place] [address]Kxcvnbebmx25-25-0989 10:01-0400Systolic blood qryudkjj458 mm[Hg]Jojo Pelaezey PA Work Phone: 1(822)666-[address] [place], [place] [address]Mfkkfhknsb74-38-6984 12:46-0400Body weftxl414.3 cmEnrike Lindquist MD Work Phone: 1(777)[address] [place], [place] 5945008-20-2025 12:46-0400Body mass index (BMI) [Ratio]35.84 kg/h0CnvyxbtvEnrike Lindquist MD Work Phone: 1(666)[address] [place], [place] 5945008-20-2025 12:46-0400Body lvyevp926.57 kgEnrike Lindquist MD Work Phone: 1(701)[address] [place], [place] 5945008-20-2025 12:46-0400Diastolic blood jxekrqzc62 mm[Hg]Enrike Lindquist MD Work Phone: 1(658)[address] [place], [place] 5945008-20-2025 12:46-0400Heart rate 73 /minEnrike Lindquist MD Work Phone: 1(102)611-[address] [place], [place] 1788008-20-2025 12:46-0400Systolic blood tsfeqhjy48 mm[Hg]Enrike Lindquist MD Work Phone: 1(089)483-[address] [place], [place] 1788008-17-2025 23:35-0400Body siyptk490.34 cmAmanda Shethrbacher MEDIATION COMMISSIONER Work Phone: 1(732)[address]08-17-2025 23:35-0400 Body ejlthlysjtc60.2 [degF]Amanda Logan MEDIATION COMMISSIONER Work Phone: 1(340)[address] [place], [place] 0305108-17-2025 23:35-0400 Body demkmw858.66 kgAmanda Shethsarahacher MEDIATION COMMISSIONER Work Phone: 1(558)[address] [place], [place] 0305108-17-2025 23:35-0400 Diastolic blood cogdclfe23 mm[Hg]Amanda Logan MEDIATION COMMISSIONER Work Phone: 1(208)[address]08-17-2025 23:35-0400 Heart rate75 /Juan Pablo Shethrbacher MEDIATION COMMISSIONER Work Phone: 1(758)[address]08-17-2025 23:35-0400 Respiratory rate16 /Juan Pablo Shethsarahacher MEDIATION COMMISSIONER Work Phone: 1(754)[address]08-17-2025 23:35-0400 SaO2% (BldA) [Mass fraction]97 %Amanda Logan MEDIATION COMMISSIONER Work Phone: 1(330)423-[address] [place], [place] 2961708-17-2025 23:35-0400 Systolic blood bvhvnsoi345 mm[Hg]Amanda Logan MEDIATION COMMISSIONER Work Phone: 1(663)[address] [place], [place] 0305108-05-2025 10:37-0400 Body craeed842.1216 kgAmanda Shethrbacher MEDIATION COMMISSIONER Work Phone: 1(116)[address]08-05-2025 09:10-0400 Body mass index (BMI) [Ratio]35.7 kg/q8Tigpc Juan DO Work Phone: 1(878)668-[address] [place], [place] [address]Eqfobhvonq05-26-4355 09:10-0400Body ewstqm271.12 kgCorey Juan DO Work Phone: 1(936)168-[address] [place], [place] [address]Riludhruwa59-27-8325 09:10-0400Diastolic blood ixumiudx62 mm[Hg]Les Juan DO Work Phone: 1(124)[facility] [place], [place] [address]Gfauhggizm97-16-4919 09:10-0400Systolic blood kefjifrq004 mm[Hg]Les Juan DO Work Phone: 1(611)[facility] [place], [place] [address]Jbunebpkly18-51-7719 11:28-0400Body mass index (BMI) [Ratio]31.24 kg/b9Fiett Juan DO Work Phone: 1(455)[facility] [place], [place] [address]Sfpdwovqgb62-73-2308 11:28-0400Body ovhfew581.61 kgCorey Juan DO Work Phone: 1(659)[facility] [place], [place] [address]Tmuksvscfz66-10-5053 11:28-0400Diastolic blood fepmjycs60 mm[Hg]Les Juan DO Work Phone: 1(642)[facility] [place], [place] [address]Ppnwzbauma50-18-7129 11:28-0400Systolic blood boarqwjb804 mm[Hg]Les Juan DO Work Phone: 1(025)[facility]-[address] [place], [place] [address]Wohfrnsuhe93-40-0121 13:34-0400Diastolic blood ihppfwdr27 mm[Hg]Amanda Ford MEDIATION COMMISSIONER Work Phone: [facility]07-03-2025 13:34-0400 Heart rate60 /minAmanda Ponceachenikkie MEDIATION COMMISSIONER Work Phone: [facility]07-03-2025 13:34-0400 Respiratory rate18 /minAmanda Ford MEDIATION COMMISSIONER Work Phone: [facility]07-03-2025 13:34-0400 SaO2% (BldA) [Mass fraction]99 %Amanda Ford MEDIATION COMMISSIONER Work Phone: [facility]07-03-2025 13:34-0400 Systolic blood bhrtivpj019 mm[Hg]Amanad Ford MEDIATION COMMISSIONER Work Phone: [facility]07-03-2025 10:38-0400 Body tzyzqk730.34 cmAmanda Ford MEDIATION COMMISSIONER Work Phone: [facility]07-03-2025 10:38-0400 Body .1 [degF]Amanda Shethbilly MEDIATION COMMISSIONER Work Phone: [facility]07-03-2025 10:38-0400 Body gsyunm487.85 kgAmanda Ford MEDIATION COMMISSIONER Work Phone: [facility]06-05-2025 15:06-0400 Body mass index (BMI) [Ratio]31.24 kg/m2[facility]06-05-2025 15:06-0400Body qpjuqx936.61 [facility]06[facility]-2025 15:06-0400 Diastolic blood sxeanyrh05 mm[Hg][facility]06-05-2025 15:06-0400 Systolic blood jexywisw364 mm[Hg][facility]05-07-2025 10:04-0400 Body pmeibt638.3 Kam Sinclair MD Work Phone: [facility] HospitalPagbeyzhgu94-59-0681 10:04-0400Body mass index (BMI) [Ratio]29.99 kg/t8CuboeDarleen Sinclair MD Work Phone: [facility] HospitalYlxgjyzeom50-35-7074 10:04-0400Body .52 kgDarleen Sinclair MD Work Phone: [facility] HospitalIcwyaamaif41-20-9497 10:04-0400Diastolic blood bnnjyuot00 mm[Hg]Darleen Sinclair MD Work Phone: [facility] HospitalOxspryhunv28-59-8191 10:04-0400Heart rate67 /min Darleen Sinclair MD Work Phone: [facility] HospitalHaqzblkjte93-55-3358 10:04-0400Respiratory rate16 /Kevin Sinclair MD Work Phone: [facility] HospitalWfqlrnryoj36-83-0888 10:04-5144GgC4% (BldA) [Mass fraction]99 %Darleen Sinclair MD Work Phone: [facility] HospitalYptxotecsi11-75-8088 10:04-0400Systolic blood ijhwlpmu864 mm[Hg]Darleen Sinclair MD Work Phone: [facility] HospitalSchcicxyfk13-09-5592 08:32-0500Body ocbpmy223.34 cm[facility]01-09-2025 08:32-0500Body mass index (BMI) [Ratio]30.4 kg/e3VpcpmaestThe Jewish Hospital01-09-2025 08:32-0500Body aqihpswgjyx52.3 [degF][facility]01-09-2025 08:32-0500Body .99 kg[facility]01-09-2025 08:32-0500Diastolic blood qkrctyvo31 mm[Hg][facility]01-09-2025 08:32-0500 Heart rate73 /minThe [facility]01-09-2025 08:32-9113PaS5% (BldA) [Mass fraction]98 %[facility]01-09-2025 08:32-0500 Systolic blood zdvatzor201 mm[Hg][facility]11-12-2024 14:03-0500Body fiphph076.3 cmIgnacio Guy MD Work Phone: [facility] MemorialEcttjk75-82-6178 14:03-0500Body mass index (BMI) [Ratio]30.23 kg/s9OgqsyhIgnacio Guy MD Work Phone: [place] Nyaxsj65-25-8289 14:03-0500Body pnmanl81.3 kgIgnacio Guy MD Work Phone: [place] Ufqrth15-10-5234 15:12-0500Body mass index (BMI) [Ratio]31.71 kg/e6PlnnkLes Martinez DO Work Phone: [facility] HospitalKldfgmunat89-01-6854 15:12-0500Body qwdylc897.25 kgCorey Juan DO Work Phone: [facility] HospitalKxegrlfwgm73-57-7037 15:12-0500Diastolic blood zemkuxrw19 mm[Hg]Les Juan DO Work Phone: [facility] HospitalNzaehruxai04-45-0523 15:12-0500Systolic blood fmzqfmyc374 mm[Hg]Les Juan DO Work Phone: [facility] HospitalXmyvxvfiyr01-24-3314 11:46-0400Diastolic blood ldtjgeqg91 mm[Hg]MELY Ford Work Phone: 1([phone]08-21-2024 11:46-0400 Heart rate76 /minAPRTanja Ford Work Phone: 1(094)929-[address] [place], [place] 2961708-21-2024 11:46-0400 Respiratory rate16 /minAPRTanja Ford Work Phone: 1(808)045-[address] [place], [place] 2961708-21-2024 11:46-0400 SaO2% (BldA) [Mass fraction]99 %MELY Ford Work Phone: 1(210)533-[address] [place], [place] 2961708-21-2024 11:46-0400 Systolic blood xeaqrilh356 mm[Hg]MELY Ford Work Phone: 1(438)853-[address] [place], [place] 2961708-21-2024 10:20-0400 Body emivyphruml13 [degF]MELY Ford Work Phone: 1([phone]08-21-2024 09:55-0400 Inhaled oxygen flow rate3 L/minMELY Ford Work Phone: 1(633)191-[address] [place], [place] 2961708-21-2024 06:29-0400 Body lzursv341.34 cmAPRTanja Ford Work Phone: 1(419)[address]08-21-2024 06:29-0400 Body yccskr85.25 kgMELY Ford Work Phone: 1([phone]07-16-2024 11:56-0400 Body dsfugc408.34 cmAPRTanja Ford Work Phone: [facility]07-16-2024 11:56-0400 Body mass index (BMI) [Ratio]28.8 kg/m2MELY Ford Work Phone: 1(274)211-[facility]07-16-2024 11:56-0400 Body rdpxty72.89 kgMELY Ford Work Phone: [phone]02-21-2024 14:56-0500 Body .34 cmThe [facility]02-21-2024 14:56-0500Body mass index (BMI) [Ratio]29.4 kg/t1LhoispkfhThe Jewish Hospital02-21-2024 14:56-0500Body .7 kgThe [facility]02-21-2024 14:56-0500Diastolic blood pkefboqb61 mm[Hg][facility] 06-08-2023 14:56-0500Heart rate51 /minThe [facility] 06-08-2023 14:56-6984SqZ1% (BldA) [Mass fraction]98 %[facility]02-21-2024 14:56-0500Systolic blood bbumxfuq152 mm[Hg][facility]01-30-2024 14:30-0500Body jlvadx706.34 cmRomeo Santana Other [facility]01-30-2024 14:30-0500 Body mass index (BMI) [Ratio]27.47 kg/x8YlboyRomeo Santana Other [facility] [employer] Other 01-30-2024 14:30-0500Body fmejfi30.36 kgRomeo Santana Other [place] [employer] Other 01-30-2024 14:30-0500Body tlgezs79.35 kgThe [facility]10-23-2023 14:30-0400Body yadgtg514.34 cmMajose guadalupe Lay Other [facility] Other 10-23-2023 14:30-0400Body mass index (BMI) [Ratio] 27.61 kg/t4WbxkyidPetr Lay Other [facility] Other 10-23-2023 14:30-0400Body stewdfhchge89.1 [degF] Petr Lay Other [facility] Other 10-23-2023 14:30-0400Body lybhlw72.81 kgMajose guadalupe Lay Other [facility] Other 10-23-2023 14:30-0400Diastolic blood hwlwzxqi18 mm[Hg] Petr Lay Other [facility] Other 10-23-2023 14:30-2768GzO7% (BldA) [Mass fraction]99 % Petr Lay Other [facility] Other 10-23-2023 14:30-0400Systolic blood soacrvec835 mm[Hg] Petr Lay Other [facility] Other 09-11-2023 11:30-0400Body jygfxc322.34 cmMajose guadalupe Lay Other [facility] Other 09-11-2023 11:30-0400Body mass index (BMI) [Ratio] 28.03 kg/y6JigekaxPetr Lay Other [facility] Other 09-11-2023 11:30-0400Body .17 kgMattnany Lya Other [facility] Other 09-11-2023 11:30-0400Diastolic blood kgyvagub32 mm[Hg] Petr Lay Other [facility] Other 09-11-2023 11:30-0400Respiratory rate18 /minMajose guadalupe Lay Other [facility] Other 09-11-2023 11:30-8547ZdW2% (BldA) [Mass fraction]99 % Petr Lay Other [facility] Other 09-11-2023 11:30-0400Systolic blood bsvdfqom466 mm[Hg] Petr Lay Other [facility] Other 06-26-2023 13:30-0400Body .34 cmMajose guadalupe Lay Other [facility] Other 06-26-2023 13:30-0400Body mass index (BMI) [Ratio] 28.78 kg/g4SmgkwyaPetr Lay Other [facility] Other 06-26-2023 13:30-0400Body sizngd81.62 kgMattnany Lay Other [facility] Other 06-26-2023 13:30-0400Diastolic blood otmkelgz97 mm[Hg] Petr Lay Other [employer] Other 06-26-2023 13:30-0400Respiratory rate18 /minMattnany Lay Other [facility] Other 06-26-2023 13:30-0654LcN2% (BldA) [Mass fraction]98 % Petr Patmer Other [facility] Other 06-26-2023 13:30-0400Systolic blood ldimmozu617 mm[Hg] Petr Patmer Other [facility] Other 06-15-2023 08:00-0400Body wuvkwy829.34 cmAmanda Ford Other [facility] Other 06-15-2023 08:00-0400Body mass index (BMI) [Ratio] 28.03 kg/c2XwecgatpAmanda Shethrbacher Other [facility] Other 06-15-2023 08:00-0400Body srkurw69.17 kgAmanda Ponceacher Other [facility] Other 06-15-2023 08:00-0400Diastolic blood plbgteyy96 mm[Hg] Amanda Ford Other [facility] Other 06-15-2023 08:00-6114PyM5% (BldA) [Mass fraction]95 % Amanda Ford Other [facility] Other 06-15-2023 08:00-0400Systolic blood mm[Hg] Amanda Ford Other [facility] Other 05-10-2023 15:30-0400Body vzqyjl796.34 cmJennifer Rohrbacher Other [employer] Other 05-10-2023 15:30-0400Body mass index (BMI) [Ratio] 29.15 kg/i0Bgmodcep Rohrbacher Other [employer] Other 05-10-2023 15:30-0400Body rqwamk29.8 kgJennifer Rohrbacher Other [employer] Other 05-10-2023 15:30-0400Diastolic blood mm[Hg] Amanda Logan Other [employer] Other 05-10-2023 15:30-0400Systolic blood cectypwl151 mm[Hg] Amanda Logan Other [employer] Other 05-05-2023 11:00-0400Body jrszem056.34 cmArtemionnedmundo Rohrbacher Other [employer] Other 05-05-2023 11:00-0400Body mass index (BMI) [Ratio] 28.73 kg/d6Bkzfxejj Rohrbacher Other [employer] Other 05-05-2023 11:00-0400Body swfiqt44.44 kgJennifer Rohrbacher Other [employer] Other 05-05-2023 11:00-0400Diastolic blood yyqdjlml64 mm[Hg] Amanda Logan Other [facility] [employer] Other 05-05-2023 11:00-4216WfH6% (BldA) [Mass fraction]100 % Amanda Shethbilly Other [facility] [employer] Other 05-05-2023 11:00-0400Systolic blood oysqociw332 mm[Hg] Amanda Shethbilly Other [employer] Other 02-24-2023 16:43-0500Body gsdqbyjledq84.1 [degF]MD Mariam Appiah Work Phone: 0(885)[address]02-24-2023 16:43-0500 Diastolic blood niipijhf53 mm[Hg]MD Mariam Appiah Work Phone: 1(356)[address]02-24-2023 16:43-0500 Heart rate60 /minMD Mariam Appiah Work Phone: 9(761)592-[address] [place], [place] 0506102-24-2023 16:43-0500 Respiratory rate16 /minMD Mariam Appiah Work Phone: 2(055)[address]02-24-2023 16:43-0500 SaO2% (BldA) [Mass fraction]100 %MD Mariam Appiah Work Phone: 1(242)019-[address] [place], [place] 0506102-24-2023 16:43-0500 Systolic blood esmpgehl255 mm[Hg]MD Mariam Appiah Work Phone: 1(567)485-[address] [place], [place] 0506102-24-2023 09:40-0500 Body owfxgl853.34 cmMD Mariam Appiah Work Phone: 4(891)383-[address] [place], [place] 0506102-24-2023 05:42-0500 Body yhwvyg55 kgMD Mariam Appiah Work Phone: 1(037)472-[address] [place], [place] 0506102-23-2023 17:55-0500 Body snjgqpwyylk06.1 [degF]MD Mariam Appiah Work Phone: 1(370)[address]02-23-2023 17:55-0500 Diastolic blood rykgdgej14 mm[Hg]MD Mariam Appiah Work Phone: 1(091)[address]02-23-2023 17:55-0500 Heart rate62 /minMD Mariam Appiah Work Phone: 1(168)[address] [place], [place] 7075202-23-2023 17:55-0500 Respiratory rate18 /minMD Mariam Appiah Work Phone: 1(012)[address] [place], [place] 7075202-23-2023 17:55-0500 SaO2% (BldA) [Mass fraction]100 %MD Mariam Appiah Work Phone: 1(705)[address]02-23-2023 17:55-0500 Systolic blood dewgfqzl148 mm[Hg]MD Mariam Appiah Work Phone: 1(683)[address] [place], [place] 7075202-23-2023 14:22-0500 Body edxvcu802.34 cmMD Mariam Appiah Work Phone: 1(052)[address]02-23-2023 14:22-0500 Body yutkxm58.7 kgMD Mariam Appiah Work Phone: 3(027)[address]01-04-2023 15:00-0500 Body eexahj853.34 cmAmanda Ford Other [facility] [employer] Other 01-04-2023 15:00-0500Body mass index (BMI) [Ratio] 27.81 kg/q4MugdxzybAmanda Ford Other [employer] Other 01-04-2023 15:00-0500Body sxqkynbyecf32.2 [degF] Amanda Ford Other [employer] Other 01-04-2023 15:00-0500Body .45 kgAmanda Shethbilly Other [facility] Other 01-04-2023 15:00-0500Diastolic blood amxtjahq33 mm[Hg] Amanda Logan Other [facility] Other 01-04-2023 15:00-0500Respiratory rate18 /minAmanda Shethbilly Other [employer] Other 01-04-2023 15:00-5675CuF1% (BldA) [Mass fraction]99 % Amanda Logan Other [facility] Other 01-04-2023 15:00-0500Systolic blood noxudwib050 mm[Hg] Amanda Logan Other [facility] Other 12-24-2022 21:41-0500Diastolic blood xeckjbnh79 mm[Hg] MD Mariam Appiah Work Phone: 0(099)949-[facility]12-24-2022 21:41-0500 Systolic blood aozcbfai999 mm[Hg]MD Mariam Appiah Work Phone: 1(351)770-[facility]12-24-2022 18:14-0500 Body xfiudd844.34 cmMD Mariam Appiah Work Phone: 1(551)294-[facility]12-24-2022 18:14-0500 Body .1 [degF]MD Mariam Appiah Work Phone: 2(573)811-[address] [place], [place] 0506112-24-2022 18:14-0500 Body nyaygl22 kgMD Mariam Appiah Work Phone: [facility]12-24-2022 18:14-0500 Heart xwun444 /minMD Mariam Appiah Work Phone: 1(184)[address] [place], [place] 7075212-24-2022 18:14-0500 Respiratory rate18 /minMD Mariam Appiah Work Phone: 1(987)[address] [place], [place] 7075212-24-2022 18:14-0500 SaO2% (BldA) [Mass fraction]100 %MD Mariam Appiah Work Phone: 1(704)[address] [place], [place] 7075212-22-2022 17:15-0500 Body sgksxmgvzoe44.5 [degF]MD Mariam Appiah Work Phone: 1(442)[address] [place], [place] 7075212-22-2022 17:15-0500 Diastolic blood mm[Hg]MD Mariam Appiah Work Phone: 1(098)[address] [place], [place] 7075212-22-2022 17:15-0500 Heart rate59 /minMD Mariam Appiah Work Phone: 1(903)[address] [place], [place] 7075212-22-2022 17:15-0500 Respiratory rate18 /minMD Mariam Appiah Work Phone: 1(874)[address] [place], [place] 7075212-22-2022 17:15-0500 SaO2% (BldA) [Mass fraction]100 %MD Mariam Appiah Work Phone: 1(448)[address] [place], [place] 7075212-22-2022 17:15-0500 Systolic blood bcnbgfes395 mm[Hg]MD Mariam Appiah Work Phone: 1(988)[address] [place], [place] 7075212-22-2022 14:33-0500 Body unxrwo007.34 cmMD Mariam Appiah Work Phone: 1(954)[address] [place], [place] 7075212-22-2022 14:33-0500 Body ckfewt08.1 kgMD Mariam Appiah Work Phone: 1(259)[address] [place], [place] 7075212-06-2022 15:30-0500 Body pvuyoe704.34 cmJeaicha Ponceachenikkie Other [facility] Other 12-06-2022 15:30-0500Body mass index (BMI) [Ratio] 27.05 kg/v3Pruyksvp Rohrbacher Other [facility] Other 12-06-2022 15:30-0500Body ospteo24 kgJeaicha Rohrbacher Other [facility] Other 12-06-2022 15:30-0500Diastolic blood axrffdgs73 mm[Hg] Amanda Logan Other [facility] Other 12-06-2022 15:30-1026BxP3% (BldA) [Mass fraction]98 % Amanda Ford Other [facility] Other 12-06-2022 15:30-0500Systolic blood kcdgetln672 mm[Hg] Amanda Jovanir Other [facility] Other 10-24-2022 10:00-0400Body cgytvr388.34 cmAmanda Shethrbacher Other [facility] Other 10-24-2022 10:00-0400Body mass index (BMI) [Ratio] 27.47 kg/z6Fizsduab Rohrbacher Other [facility] Other 10-24-2022 10:00-0400Body azghsi44.36 kgJeaicha Rohrbacher Other [facility] Other 10-24-2022 10:00-0400Diastolic blood rzduqrsq27 mm[Hg] Amanda Ponceachenikkie Other [employer] Other 10-24-2022 10:00-0400Systolic blood dlqjlpih692 mm[Hg] Amanda Hahnnikkie Other [facility] [employer] Other 05-17-2022 14:38-0400Blood Pressure LocationRyarjun Thompson [address]05-17-2022 14:38-0400 Diastolic blood bmwjstjy99 mm[Hg]Samir Christofferson [address] [place], [place] 9950105-17-2022 14:38-0400Heart rate61 /minRyarjun Christofferson [address] [place], [place] 9950105-17-2022 14:38-0400 Respiratory rate18 /minRyarjun Christofferson [address] [place], [place] 9950105-17-2022 14:38-4547DmD0% (BldA) [Mass fraction]100 %Samir Christofferson [address] [place], [place] 9950105-17-2022 14:38-0400 Systolic blood dwpiojnv747 mm[Hg]Samir Christofferson [address] [place], [place] 9950104-08-2022 14:39-0400Blood Pressure LocationRyarjun Christofferson [address] [place], [place] 9950104-08-2022 14:39-0400 Diastolic blood mm[Hg]Samir Christofferson [address] [place], [place] 9950104-08-2022 14:39-0400Heart rate65 /minRyan Christofferson [address] [place], [place] 9950104-08-2022 14:39-0400 Respiratory rate18 /minSamir Christofferson [address] [place], [place] 9950104-08-2022 14:39-4353LjT7% (BldA) [Mass fraction]100 %Samir Thompson [facility]04-08-2022 14:39-0400 Systolic blood gnhcogwj147 mm[Hg]Samir Thompson [facility]03-31-2022 11:00-0400Body yymywo281.34 cmArtemiophamedmundo Logan Other [facility] Other 03-31-2022 11:00-0400Body mass index (BMI) [Ratio] 29.15 kg/b1Cgkymrbg Logan Other [facility] Other 03-31-2022 11:00-0400Body yrocle54.8 kgAmanda Logan Other [facility] Other 03-31-2022 11:00-0400Diastolic blood caawcidt20 mm[Hg] Amanda Ford Other [facility] Other 03-31-2022 11:00-5812VfC6% (BldA) [Mass fraction]98 % Amanda Ford Other [facility] Other 03-31-2022 11:00-0400Systolic blood hiiajkrb160 mm[Hg] Amanda Ford Other [facility] Other 01-21-2021 08:20-0500Body Mchqldczkij54.7 [degF] [facility], WB08-78-2203 08:20-0500BP Byygsdnnl64 mm[Hg] [facility], GP76-10-5518 08:20-0500BP Izlxdbcx913 mm[Hg] [facility], YF45-04-0309 08:20-0500Pulse (Heart Rate)101 /minDelta [facility], FD88-90-1303 08:20-0500Pulse Ncivqliv99 % [facility], OW74-61-8364 08:20-0500Respiratory Rate19 /min [facility], QM35-79-7178 08:51-0500BMI (Body Mass Index) 58.86 kg/p7OukzsibDelta [facility] Center, CW36-85-1192 08:51-0500Body weight 191.42 kgDelta [facility], NW01-31-1508 08:51-9860Prkwqm743.3 cm [facility], OR50-68-2255 13:30-0500BMI (Body Mass Index) 61.79 kg/m[address], WH41-48-8558 13:30-0500Body Rdqikjafpvw79.11 [degF][address], IC27-64-6775 13:30-0500Body .[address], WH07-45-9815 13:30-0500BP Gtagdwpgn66 mm[Hg][address], ZB15-98-2078 13:30-0500BP Kekcqvyq504 mm[Hg][address], QN67-14-8857 13:30-7369Agoruf557.[address], XB02-02-2882 13:30-0500Pulse (Heart Rate)104 /minStv[address], AO38-16-6442 13:30-0500Pulse Kislzylb69 %[address], OO86-85-1808 13:30-0500 Respiratory Rate18 /minStvz [address] [place] [address], [place] Encounters Encounter DateEncounter [facility] ProviderFacilityStart: 02-19-2025 End: [id number] flowsheetCorey Juan DO Work Phone: [facility]YNStart: 02-19-2025 End: 71-85-4279Rvchhn flowsheetCorey Juan DO Work Phone: [facility] [place] [facility]BGYNStart: 02-07-2025 End: 56-61-0081UwvushMolly Mcgee [facility] 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 Metal Sash Setter - [place] FordComment on above:Hypothyroidism affecting in second trimester (Primary Dx); headache in second trimester; Previous gastric bypass affecting , antepartum; 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 ([facility])Start: 02-06-2025 End: 44-18-7322Svflqb outpatient visit 15 minutesJojo OGDEN Work Phone: [facility] [place] OBGYNComment on above:Third trimester ([facility]); 29 weeks gestation of ([facility])Start: 02-06-2025 End: 10-62-9902siagphvtnyHDV RAMEYNot AvailableStart: 02-06-2025 End: 02-18-5630Xjoswl Shakeel OGDEN Work Phone: [facility] OBGYNStart: 02-06-2025 End: 66-87-8623Fepagh Shakeel OGDEN Work Phone: [facility] [place] OBGYNStart: 01-30-2025 End: 56-59-0236eiwxijlnxxJMJPDTSH EBERLYNot AvailableStart: 01-16-2025 End: 22-89-5701Xgphnr Eliecer Duenas MANAGER PAPER Work Phone: [facility] OBGYNStart: 01-16-2025 End: 02-05-5937Pluhar Eliecer Duenas MANAGER PAPER Work Phone: [facility] [place] OBGYNStart: 01-16-2025 End: 88-53-3916Simxpu outpatient visit 15 minutesMima Duenas NP Work Phone: [facility] [place] OBGYNComment on above:26 weeks gestation of ([facility]); Second trimester ([facility]); TSH (thyroid-stimulating hormone deficiency)Start: 01-16-2025 End: 28-16-5172albjkifonoJYVRROLP EBERLYMateo AvailableStart: 01-11-2025 End: 42-40-7708Sdjftznld Result EncounterCorey Juan DO Work Phone: NOLJ External Department UnsolicitedStart: 01-11-2025 End: 78-98-0745Drivjavmj Result EncounterCorey Juan DO Work Phone: noms External Department UnsolicitedStart: 01-09-2025 End: 89-53-8047Vflnmpjgi Result EncounterJojo OGDEN Work Phone: noms External Department UnsolicitedStart: 01-09-2025 End: 64-79-4067Sjyktdypl Result EncounterJojo OGDEN Work Phone: noms External Department UnsolicitedStart: 01-04-2025 End: 84-93-0271Vuwjqu Rosanna Dick RNMaternal- Medicine at [facility]. Francis HospitalComment on above:Previous gastric bypass affecting , antepartum (Primary Dx); Hypothyroidism affecting in second trimester; 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 ([facility] Obesity affecting in second trimester, unspecified obesity typeStart: 01-03-2025 End: 28-44-4092wbqkbufduwVD PCP NO [facility] Ambulatory PPGStart: 01-03-2025 End: 79-04-0267Jxpodmbrl encounterLyzari Griffin RNMaternal Medicine [facility] ClintonStart: 12-19-2024 End: 67-52-4936Wgfhxg Shakeel OGDEN Work Phone: [facility] [place] OBGYNStart: 12-19-2024 End: 80-48-3827Vtwakt Shakeel OGDEN Work Phone: [facility] [place] [facility]BGYNStart: 12-19-2024 End: 35-96-3219Fnsrir outpatient visit 15 minutesJojo OGDEN Work Phone: [facility] [place] OBGYNComment on above:22 weeks gestation of ([facility]); Second trimester ([facility]); Thyroid disease ; H/O gastric sleeve; H/O iron deficiency anemia; Diabetes mellitus screeningStart: 12-19-2024 End: 04-08-3804ytttrrqrqwFDZ Tj AvailableStart: 12-15-2024 End: 39-02-9054Zaijgnadc Result EncounterCorey Juan DO Work Phone: noms External Department UnsolicitedStart: 12-15-2024 End: 80-47-1462Rfdpfkses Result EncounterCorey Juan DO Work Phone: noms External Department UnsolicitedStart: 12-05-2024 End: 95-62-4513Lhefyp consultation new/estab patient 80 [address] Linqduist MD Work Phone: [phone]-Wucrr Medicine at [facility] Comment on above:20 weeks gestation of (Primary Dx); Previous gastric bypass affecting , antepartum; Obesity affecting in second trimester, unspecified obesity type; Hypothyroidism affecting in second trimester; 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 ([facility]); headache in second trimesterStart: 12-05-2024 End: 82-49-9888Wiopfd Ej Shen RNMaternal- Medicine at St. Francis HospitalComment on above:Previous gastric bypass affecting , antepartum (Primary Dx); Hypothyroidism affecting in second trimester; 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 ([facility]); Obesity affecting in second trimester, unspecified obesity type; Encounter for supervision of resulting from assisted reproductive technology, antepartumStart: 12-04-2024 End: 46-03-9338btsnwwuxndIUUVP FAZIONot AvailableStart: 12-02-2024 End: 55-77-6996Lrncrno encounter procedureRichard A Visci DO-[address] - O/P Start: 12-02-2024 End: 48-00-9677vsrxcxtoivIkoliygc Rohrbacher MEDIATION COMMISSIONER Work Phone: [facility] Work Phone: Start: 12-02-2024 End: 92-83-3554Ocanglvw Result EncounterRichard A Visci DO Work Phone: noms External Department UnsolicitedStart: 12-02-2024 End: 51-71-2641Vqpftlbm Result EncounterRichard A Visci DO Work Phone: noms External Department UnsolicitedStart: 12-01-2024 Non-patient / Non-visit([place]) Elizabeth MORALESC-[facility] Professional [facility] Work Phone: Start: 11-30-2024 End: 96-86-9859zgdxxvfbcaTnxostyx Rohrbacher MEDIATION COMMISSIONER Work Phone: [facility] Work Phone: Start: 11-30-2024 End: 87-35-4256Ayglswap ReferredJefito Chapman DO-LAB Path Spec [place] [facility] Start: 00-23-5857Yoh-patient / Non-visitChris Chapman DO-[facility] Work Phone: Start: 11-20-2024 End: 42-55-0488Fdvymh flowsheetCorey Juan DO Work Phone: [facility] [place] [facility]BGYNStart: 11-20-2024 End: 49-37-2667Yoenyg flowsheetCorey Juan DO Work Phone: [facility] [place] [facility]BGYNStart: 11-20-2024 End: 52-94-7378Jcdgwhahj Result EncounterCorey Juan DO Work Phone: noms External Department UnsolicitedStart: 11-20-2024 End: 31-61-6012Vswtmdcr Result EncounterCorey Juan DO Work Phone: noms External Department UnsolicitedStart: 11-20-2024 Non-patient / Non-visitCorey Juan-[facility] Work Phone: Start: 11-20-2024 End: 17-28-7454Kqhwkqn encounter procedureCorey Numecent Phone: noms HealthcareStart: 11-20-2024 End: 86-94-0446Vghnvlqp preventive med est patient 18-39 yrsCorey infoBizz Work Phone: [facility] [place] OBGYNComment on above:Well woman exam with routine gynecological exam; Exposure to STD; Second trimester ([facility]); 18 weeks gestation of ([facility]); Need for maternal serum alpha-protein (MSAFP) screening ([facility]); Screening, , for anatomic survey ([facility]); Thyroid diseaseStart: 11-20-2024 End: 56-87-3909nfxfvyzkvgWAMBF FAZIONot AvailableStart: 15-50-6798Pon-patient / Non-visitDonisnicole Jayla Chapman DO-[employer] Work Phone: Start: 10-26-2024 End: 25-74-7260Knrrkk OnlyNot In System Ref ProvMaternal- Medicine at [facility] Hospitaltart: 10-22-2024 End: 69-62-3850Jyepdp outpatient visit 15 minutesCorey Numecent Phone: noms BCP OBComment on above:13 weeks gestation of ([facility]); Second trimester ([facility]); Thyroid disease ; H/O gastric sleeve; H/O iron deficiency anemia; resulting from in vitro fertilization in first trimester ([facility]) Start: 10-22-2024 End: 38-31-6800zcbbzbdejfJJQZE FAZIONot AvailableStart: 10-18-2024 End: 25-00-6903Vpsvboczu department patient visitAmanda Ford MEDIATION COMMISSIONER Work Phone: [phone]-Fgsnkofpg Room Work Phone: Start: 10-10-2024 End: 45-72-9616Yczardgpb Result EncounterCorey Juan DO Work Phone: noms External Department UnsolicitedStart: 10-10-2024 End: 39-46-6586Uexbisaod Result EncounterCorey Juan DO Work Phone: noms External Department UnsolicitedStart: 09-26-2024 End: 97-75-4190arxkkevyqfHushdszq RohrbacherFacility:[facility] HospitalStart: 09-20-2024 End: 35-80-9077[place] outpatient visit 5 minutesNoms Bcp Ob Juan NurseNOMS BCP OBComment on above:GA: 3e7tXmicd: 09-20-2024 End: 47-83-2542pzhqggygvqFALIG SABBAGHNot AvailableStart: 09-03-2024 End: 29-38-7702Aerumpx evaluation of patient and reportUs Tech 1 [facility] Work Phone: Reproductive Endocrinology InfertilityComment on above:Early stage of (HCC)Start: 09-03-2024 End: 25-26-8023lzybmirzyhIAMVYRK G MICKEYFacility:[facility] Start: 08-28-2024 End: 32-97-5420Adfekhb evaluation of patient and reportUs Tech 2 [facility] Work Phone: Reproductive Endocrinology InfertilityComment on above: resulting from assisted reproductive technology in first trimester ([facility])Start: 08-28-2024 End: 28-04-4869wgwornqnmdTLQJFRH G MICKEYFacility:[facility] Start: 08-24-2024 End: 29-70-0918Vnzfhzfls encounterLiliana G David MEDIATION COMMISSIONER.RADIO OFFICER Work Phone: Reproductive Endocrinology InfertilityComment on above:Patient QuestionStart: 08-23-2024 End: 79-46-6058Gmeiomohs encounterLiliana G David MEDIATION COMMISSIONER.RADIO OFFICER Work Phone: Reproductive Endocrinology InfertilityComment on above:PainStart: 08-22-2024 End: 38-33-3950Lilwinforrest Sinclair MD Work Phone: noms ENDOCRINOLOGYStart: 08-22-2024 End: 47-62-2342Atqgad flowsheetDarleen Sinclair MD Work Phone: noms ENDOCRINOLOGYStart: 08-22-2024 End: 81-04-0501Fsynlc outpatient visit 25 minutesDarleen Sinclair MD Work Phone: noms ENDOCRINOLOGYComment on above:Abnormal thyroid function test (Primary Dx); H/O gastric bypass; 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[facility]); Vitamin D deficiencyStart: 08-22-2024 End: 95-69-5434csbapjvzziBTLVA F SABBAGHNot AvailableStart: 08-20-2024 End: 26-25-6412Qizaeikvpcts consultation with [place] Hernandez APRN.RADIO OFFICER Work Phone: Reproductive Endocrinology InfertilityStart: 08-20-2024 End: 38-04-2429ggjmsebhzqPtrqtwqBridget Hernandez APRN.RADIO OFFICER Work Phone: Reproductive Endocrinology InfertilityComment on above: 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) (Primary Dx)Start: 08-18-2024 End: 48-13-4462xchfewtabkQcjxqjzSue Hernandez APRN.RADIO OFFICER Work Phone: Reproductive Endocrinology InfertilityComment on above:UltrasoundStart: 08-17-2024 End: 63-09-9921lswkadivkiFngqkzfh RohrbacherFacility:[facility] Hospitaltart: 08-16-2024 End: 86-55-1234Nnisvudch encounterMelodie Hernandez MEDIATION COMMISSIONER.RADIO OFFICER Work Phone: Reproductive Endocrinology InfertilityComment on above:positive for pregnancyStart: 08-15-2024 End: 19-68-3122Zfzxrzwvs encounterMelodie Hernandez MEDIATION COMMISSIONER.RADIO OFFICER Work Phone: Reproductive Endocrinology InfertilityComment on above:Patient QuestionStart: 08-15-2024 End: 44-00-0512drxnztuvpbThudpxw G MickeyFacility:[facility] Hospitaltart: 08-13-2024 End: 47-44-0426bkbgkrzsdnPvcnofd G MickeyFacility:[facility] HospitalStart: 07-31-2024 End: 27-93-9662laeveoyjxsVQUCCvgrjcoi:[facility] HospitalStart: 07-31-2024 End: 30-26-6813Itkqwxp encounter procedureAndrology Architectural Sales Consultant Work Phone: [facility] Andrology LaboratoryComment on above: Procreative management (Primary Dx)Start: 07-30-2024 End: 44-23-7031Dzsgyvxtl encounterMelodie Hernandez MEDIATION COMMISSIONER.RADIO OFFICER Work Phone: Reproductive Endocrinology InfertilityComment on above:Patient QuestionStart: 07-25-2024 End: 88-34-7294wslplpzubkIXDLJwluizpz:[facility] HospitalStart: 07-07-2024 End: 49-12-0837mznmzjfijjWCHIBZRU TANTIBHEDHYANGKULFacility:[facility] HospitalStart: 07-07-2024 End: 63-54-3828Lzmbsic encounter procedureAndrology Architectural Sales Consultant Work Phone: [facility] Andrology LaboratoryComment on above: Procreative management (Primary Dx)Encounter for artificial insemination (Primary Dx)Start: 07-06-2024 End: 29-82-1409Myqeixfql encounterMelodie Hernandez MEDIATION COMMISSIONER.RADIO OFFICER Work Phone: Reproductive Endocrinology InfertilityComment on above:Patient calling back/re iui 07/07 unsureStart: 07-05-2024 End: 69-34-6497Bbrnubxqc encounterIgnacio Guy MD Work Phone: reproductive Endocrinology InfertilityComment on above:re iui this wknd/has cervical polyp questionStart: 07-04-2024 End: 09-34-4515Hdnysjmce encounterMelodie Hernandez MEDIATION COMMISSIONER.RADIO OFFICER Work Phone: Reproductive Endocrinology InfertilityComment on above:Treatment PlanningStart: 07-04-2024 End: 99-37-5710hjwjpaooqsAnckxcy G David MEDIATION COMMISSIONER.RADIO OFFICER Work Phone: Reproductive Endocrinology InfertilityComment on above:OvulatingStart: 07-04-2024 End: 92-93-1771Cpdihol encounter procedureUs Tech 3 [facility] Work Phone: Reproductive Endocrinology InfertilityStart: 07-02-2024 End: 26-21-9875kjbtlukqawXVAWCIL MICKEYFacility:[facility] HospitalStart: 06-29-2024 End: 57-16-2941ermgdoptolCEUGZBI MICKEYFacility:[facility] HospitalStart: 06-23-2024 End: 20-02-3908lagyvvhetyCuswwxt G David MEDIATION COMMISSIONER.RADIO OFFICER Work Phone: Reproductive Endocrinology InfertilityComment on above:Negative test and possible hematomaStart: 06-09-2024 End: 65-97-7074pxmriodwisILQBYO ATTARANFacility:[facility] HospitalStart: 06-09-2024 End: 23-39-4116Elellsa encounter procedureAndrology Architectural Sales Consultant Work Phone: [facility] Andrology LaboratoryComment on above: Procreative management (Primary Dx)Female infertility (Primary Dx)Start: 06-05-2024 End: 95-34-4367pvnsarwnrfWhcsdri G David MEDIATION COMMISSIONER.RADIO OFFICER Work Phone: Reproductive Endocrinology InfertilityStart: 06-05-2024 End: 71-96-7876Xojizhe encounter procedureLiliana G David MEDIATION COMMISSIONER.RADIO OFFICER Work Phone: Reproductive Endocrinology InfertilityComment on above:IUI appointmentStart: 05-22-2024 End: 70-92-7958jtokvggsfsEiehebd G David MEDIATION COMMISSIONER.RADIO OFFICER Work Phone: Reproductive Endocrinology InfertilityComment on above:Progesterone resultsStart: 05-21-2024 End: 95-34-5998hnqqluobosIxcokbo G MickeyFacility:[facility] HospitalStart: 05-18-2024 End: 77-55-3452doiorfrouzHLHHKDS MICKEYFacility:[facility] HospitalStart: 05-09-2024 End: 13-85-9971wixectycslZhnwbso G Mickey MEDIATION COMMISSIONER.RADIO OFFICER Work Phone: Reproductive Endocrinology InfertilityComment on above:Reproductive mgmt, 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)Start: 05-09-2024 End: 24-21-7030Ssgwozjzcuts consultation with [place] Hernandez APRN.RADIO OFFICER Work Phone: Reproductive Endocrinology InfertilityStart: 05-06-2024 End: 98-36-9782veguvrpqeoJxscjwf G Mickey MEDIATION COMMISSIONER.RADIO OFFICER Work Phone: Reproductive Endocrinology InfertilityComment on above:Consent formStart: 05-02-2024 End: 05-49-0960Fiscgzqrcndj consultation with Rufino Enriquez PhD Work Phone: [facility] HospitalComment on above:Bipolar 1 disorder (Multi) (Primary Dx); Infertility counselingStart: 05-02-2024 End: 64-69-1653xrzuqhhdgtOOLTEO A [facility] AmbulatoryStart: 04-26-2024 End: 21-06-6912ihymeoifnjFroaclbhcFort Hamilton Hospital Work Phone: Start: 04-26-2024 End: 38-82-1632Hihzieq encounter procedureFormerly [facility] Physician [facility] Work Phone: Start: 04-24-2024 End: 33-84-9214exdozxsamyAAELKYQ MICKEYFacility:[facility] HospitalStart: 04-23-2024 End: 41-37-3709dislzcgejeLmkuldpnzFort Hamilton Hospital Work Phone: Start: 04-23-2024 End: 57-16-4396Veiwsxt encounter procedureFormerly [facility] Physician [facility] Work Phone: Start: 04-02-2024 End: 86-66-7580bsraqgtavrIawthlo G Mickey MEDIATION COMMISSIONER.RADIO OFFICER Work Phone: Reproductive Endocrinology InfertilityComment on above:Genetic testingStart: 03-09-2024 End: 58-73-8101qxwbjpsepaEtxoeavSue Hernandez APRN.CNP Work Phone: Reproductive Endocrinology InfertilityComment on above:Reproductive mgmt, 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 Hospitaltart: 02-28-2024 End: 57-22-9447xvrcjwfpjkREWPJT ATTARANFacility:[facility] Hospitaltart: 02-28-2024 End: 32-73-8913Bjrfnle encounter Ana Rosa Guy MD Work Phone: reproductive Endocrinology InfertilityComment on above: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)Start: 02-27-2024 End: 78-92-4280bmisbyrdcrOyrfmpur Rohrbacher APRN Work Phone: [facility] Work Phone: Start: 02-27-2024 End: 22-48-7002Khbqzpg encounter procedureAmanda Ford APRN Work Phone: [facility] Work Phone: Start: 87-19-8933Req-patient / Non-visitFormerly [facility] Professional [facility] Work Phone: Start: 02-20-2024 End: 47-71-9040Srqahqz encounter procedureLes Martinez DO Work Phone: [facility] HealthcareStart: 02-20-2024 End: 64-18-6462Znrjzsqf preventive med est patient 18-39 yrsCorey Juan DO Work Phone: noms [facility] OBComment on above:Well woman exam with routine gynecological examStart: 02-20-2024 End: 24-15-3223gqvgaaomkwVZKFU FAZIONot AvailableStart: 02-20-2024 End: 46-51-2987Oqlpkw flowsheetCorey Juan DO Work Phone: noms BCP OBStart: 02-20-2024 End: 07-15-5631Tgwlyn flowsheetCorey Juan DO Work Phone: noms BCP OBStart: 02-20-2024 End: 88-75-0105Dyjlkrgpn Result EncounterCorey Juan DO Work Phone: noms External Department UnsolicitedStart: 01-17-2024 End: 55-99-7971hvwlvhvxyoUJHL Jennifer Rohrbacher Work Phone: [facility] Work Phone: Start: 01-17-2024 End: 29-42-4736Oyziojg encounter procedureAPRTanja Ford Work Phone: [facility] Work Phone: Start: 82-21-4909Jyb-patient / Non-visitAPRTanja Ford Work Phone: [facility] Work Phone: Start: 12-20-2023 End: 90-36-4235asuihvwhreKTPI Jennifer Rohrbacher Work Phone: [facility] Work Phone: Start: 12-20-2023 End: 07-23-7736Sbsrxad encounter procedureAPRTanja Ford Work Phone: [facility] Work Phone: Start: 92-03-9275unwodidovdLqzpo Bailey DO Facility:[facility]tart: 84-26-4297Wby-patient / Non-visitMELY Ford Work Phone: [facility] Work Phone: Start: 12-07-2023 End: 16-17-6320Ktfwxicje to same day surgery centerAPRTanja Ford Work Phone: [facility] Main LucienStart: 12-07-2023 End: 32-07-9941dijnkqnuevFMET Jennifer Rohrbacher Work Phone: [facility] Work Phone: Start: 12-01-2023 End: 64-11-0184dupjnerljtNVHL Jennifer Rohrbacher Work Phone: [facility] Work Phone: Start: 12-01-2023 End: 60-17-0286Ytzrlkw encounter procedureAPRTanja Ford Work Phone: [facility] Work Phone: Start: 11-28-2023 End: 06-75-4030bnaotmbkogAYEN Jennifer Rohrbacher Work Phone: [facility] Work Phone: Start: 11-28-2023 End: 43-41-4757Hnctvrf encounter procedureAPRTanja Ford Work Phone: [facility]-Pre-Surgical Testing Work Phone: Start: 11-02-2023 End: 08-33-2486Konzvqoiv department patient visitAmanda Ford Facility:[facility]tart: 11-01-2023 End: 51-97-1933ksinvislydJPJY Jennifer Rohrbacher Work Phone: [facility] Work Phone: Start: 11-01-2023 End: 32-96-2333Rpffpzn encounter procedureMELY Ford Work Phone: [facility] Work Phone: Start: 10-26-2023 End: 68-57-7496cvklaqhvomSAAH Jennifer Rohrbacher Work Phone: [facility] Work Phone: Start: 10-26-2023 End: 41-04-3920Mokfxkj encounter procedureMELY Ford Work Phone: [facility] Work Phone: Start: 10-13-2023 End: 08-78-4913icypwactjrBubbyatjkMercy Memorial Hospital Work Phone: Start: 10-13-2023 End: 71-44-6895Khzvnzy encounter procedureFormerly [facility] Work Phone: Start: 73-97-1454Lbb-patient / Non-visitFirchildren's hospital of the [facility] Professional [employer] Work Phone: Start: 06-08-2023 End: 25-22-9656dttyewnhkcRdzunngosFort Hamilton Hospital Work Phone: Start: 06-08-2023 End: 18-43-0418Othfmhw encounter procedureFormerly [facility] Work Phone: Start: 05-17-2023 End: 08-38-6874aqxhkdaaagYchyvkjb Rohrbacher Other [facility] [employer] Other Start: 28-51-8527Vskkxm outpatient visit 15 minutes Romeo Bazzi OrthopedicsStart: 19-60-5003Vzfpxizcq encounterAmanda LopezMedina Hospital ClinicStart: 05-17-2023 End: 18-96-6546Erowiau encounter procedureFirelands Physician Group-Start: 04-28-2023 End: 83-24-3410wukggksdfmHjuxtcqg Rohrbacher Other [employer] Other Start: 15-41-6161Gmztxiiov encounterJennifer RohrbacherFPG [facility] ClinicStart: 04-22-2023 End: 06-38-7357asjjycysreLrfywutm Rohrbacher Other [employer] Other Start: 37-47-8722Vuykwqnlt encounterJennifer MerylrbacherFPG [facility] ClinicStart: 04-19-2023 End: 79-87-4212cvzfekgdsmGmxeejtv Rohrbacher Other [employer] Other Start: 54-17-1279Qfyvzyyjs encounterJennifer MerylrbacherFPG [facility] Houston RoadStart: 04-14-2023 End: 29-39-9744nmvqmhaxhxFyowewdn Rohrbacher Other [employer] Other Start: 23-05-8833Xswzjvysl encounterJennifer MerylrbacherFPG [facility] ClinicStart: 03-17-2023 End: 28-07-1003dequmzhxkkTbitk Bailey Other [employer] Other Start: 97-88-8647Vglhdcoxg encounterRomeo Bazzi OrthopedicsStart: 02-07-2023 End: 89-71-3543thmelquvigNxsynhez Rohrbacher Other [employer] Other Start: 03-19-5038Jceccu outpatient visit 15 minutes Petr [facility] [place]kyStart: 61-95-8400Uxqzadcvz encounter Amanda PonceacheDanikaPG [facility] ClinicStart: 01-27-2023 End: 91-74-7698lacufusnqhIfjjyglm Rohrbacher Other [employer] Other Start: 67-75-7636Pxxcyiecj encounterJeaicha RohrbacherFPG [facility] [place] FordStart: 01-19-2023 End: 67-50-9952fvawvuydadRvroyjoe Rohrbacher Other [employer] Other Start: 10-16-5225Qdebvbqxg encounterAmanda ShethrbacherFPG [facility] ClinicStart: 01-13-2023 End: 64-33-1848mdxuybvhttOsxfcpae Rohrbacher Other [employer] Other Start: 44-08-6435Bgjsqvebo encounterJennifer RohrbacherFPG [facility] ClinicStart: 01-10-2023 End: 54-68-8844qxruxaiqdfTnuldzis Rohrbacher Other [employer] Other Start: 45-25-8956Vnigprqrq encounterJephamifer RohrbacherFPG [facility] ClinicStart: 01-06-2023 End: 99-00-3953llrgudrvqeQxxnbwhz Rohrbacher Other [employer] Other Start: 65-68-7812Mmpwbwamf encounterJennifer RohrbacherFPG [facility] ClinicStart: 12-27-2022 End: 32-39-7657ukssyixgbgCpntxzc Widmer Other [employer] Other Start: 17-77-8739Ojubiq outpatient visit 15 minutes [facility] HospitalyStart: 11-10-2022 End: 68-01-8309dybyonmkptOtvcttjd Rohrbacher Other [employer] Other start: 78-06-4074Uwctuupld encounterJennifer RohrbacherFPG Family Medicine SandbensalemyStart: 10-21-2022 End: 18-21-5453bwcezitjvkVzzpocbg Rohrbacher Other [facility] Other Start: 43-37-7792Hrsrwuadj encounterAmanda ShethrbacherF Family [facility] ClintonStart: 10-11-2022 End: 60-87-9213ckotuitwjgZsdcdef Alireza Other [employer] Other Start: 53-21-3768Qjpmbi consultation new/estab patient 40 minMattnany LayFPG Family [facility] CenteryStart: 09-30-2022 End: 17-73-8251txhlpheyxgOcudhikq Rohrbacher Other [facility] Other start: 61-05-5735Ptpbbw outpatient visit 15 minutes Amanda John [facility] ClintonStart: 08-25-2022 End: 65-58-2866omiuyvyipsQnfdmuyc Rohrbacher Other [facility] Other start: 27-93-2342Gjablk outpatient visit 15 minutes Amanda RosarioMarc Family [facility] ClintonStart: 08-20-2022 End: 18-10-4089zonwzekqyfLiloinad Rohrbacher Other [facility] Other start: 32-26-4574Kahjhj outpatient visit 15 minutes Amandarufino HahnSCL Health [facility] ClintonStart: 07-19-2022 End: 36-97-0292bxlpkeuakmTuhfoyyq Rohrbacher Other [employer] Other Start: 79-11-8774Otifxrjkl encounterArtemionnifer MerylrbacherFVirtua Mt. Holly (Memorial)Start: 07-08-2022 End: 19-45-5930yrcypbfatyYybxjyng Rohrbacher Other [employer] Other Start: 47-72-0775Gxsqeaevp encounterJennifer MerylrbacherFVirtua Mt. Holly ([facility])Start: 06-23-2022 End: 32-38-9496cwkzihbxjtIFBC Jennifer Rohrbacher Work Phone: [facility] Work Phone: Start: 06-23-2022 End: 18-66-9946Vmytfve encounter procedureAPRTanja Ford Work Phone: [facility] [place] Work Phone: Start: 06-17-2022 End: 62-83-9287vjvthbtqvtSympbekq Merylrbacher Other [facility] [employer] Other Start: 24-71-0541Chicndrzq encounterAmanda FordNowright memorial hospital [employer] Biosciencesrt: 06-16-2022 End: 05-13-7974ewpuijxcuwVIKF Jennifer Rohrbacher Work Phone: [facility] Work Phone: Start: 06-16-2022 End: 89-47-0853Sxrwkkg encounter procedureMELY Ford Work Phone: [facility] [place] Work Phone: Start: 06-10-2022 End: 10-77-5101Ylonqknhis and management of inpatientMD Mariam Appiah Work Phone: [facility]-4 [facility] Work Phone: Start: 39-42-7914ntjrxxryfod encounterMD Kelly Yecenia Alma Work Phone: [facility] Work Phone: Start: 06-09-2022 End: 94-83-3341pjntzlsknuYH Daniel G Cadigan Work Phone: [facility] Work Phone: Start: 06-09-2022 End: 09-10-1828Wfrjlve encounter procedureMD Mariam Appiah Work Phone: [facility] [place] Work Phone: Start: 04-26-2022 End: 27-43-6305rpaaazhlmrHwmbgrrv Rohrbacher Other [facility] Other Start: 26-01-1611Sptwyzycw encounterJennifer RohrbRijuvenrt: 04-23-2022 End: 14-61-2653nnjugnvbfpPbpgiwkh Rohrbacher Other [facility] Other Start: 94-01-7558Sezubdkdq encounterJennifer Sovicellrt: 04-21-2022 End: 15-84-7009Ykaxvrpg ReferredMD Mariam Appiah Work Phone: [facility] [place] Work Phone: Start: 04-21-2022 End: 25-57-0968yddbfjdlleWLChema Appiah Work Phone: [facility] Work Phone: Start: 95-18-6007Setmoy outpatient visit 15 minutes Amanda LopezVirtua Mt. [facility] ([facility])Start: 04-20-2022 End: 58-21-3151wethurgikfMetswjsl Rohrbacher Other [employer] Other Start: 61-56-4268Uwfzweaaf encounterArtemiophamedmundo LopezPG [facility] HospitalStart: 04-13-2022 End: 14-11-0046wtxbvpdkywDxndkzqk Rohrbacher Other [employer] Other Start: 59-98-3672Sjypsgvsc encounterJennedmundo HahnrNowright memorial hospital [employer]rt: 04-10-2022 End: 46-63-6632Cbdpxcyel department patient visitMD Mariam Appiah Work Phone: [facility]-Emergency Room Work Phone: Start: 04-08-2022 End: 70-49-7406Gfvzmiddn department patient visitMD Mariam Appiah Work Phone: [facility]-Emergency Room Work Phone: Start: 03-30-2022 End: 93-15-1691kkkraubbkqOryzsrrk Merylrbacher Other [employer] Other Start: 38-24-1203Nhaypfwyh encounterArtemiophamedmundo RosarioMarcVirtua Mt. [facility] ([facility])Start: 03-23-2022 End: 80-10-8685Jnlzydx encounter procedureMD Mariam Appiah Work Phone: [facility]-XRay [place]Start: 03-23-2022 End: 08-57-9756ehlxirnofrIhxpmjqb Rohrbacher Other [facility] Other Start: 45-89-5433Hywaem outpatient visit 15 minutes Amanda LopezTrinitas HospitaltonStart: 03-17-2022 End: 36-81-5719gqtwmtaxosLhzhdqio Rohrbacher Other [employer] Other Start: 77-01-9681Fzbhvvnog encounterJennifer MerylrbacherFInspira Medical Center Woodburyart: 02-08-2022 End: 81-39-2985lcghkbgivgCqendtmz Rohrbacher Other [employer] Other Start: 23-80-5338Ztecfz outpatient visit 25 minutes [address]thstefanyAsc[address] Luke's Sleep Centerart: 09-01-2021 End: 66-34-0954Daiyqge encounter Afshan Thompson [facility] Start: 08-25-2021 End: 06-18-5327Swyetnu encounter Afshan Thompson [facility] Start: 08-06-2021 End: 62-62-7715Rwdemgh encounter Afshan Thompson [facility] Start: 07-24-2021 End: 28-97-2699Mmummlq encounter Afshan Thompson [facility] Start: 07-23-2021 End: 79-92-5207lkmvwretlxCjfaxsgt Rohrbacher Other [employer] Other Start: 44-37-4604Tgwvuvxlb encounterJennifer MerylrbacherBrookesmith [employer]rt: 07-16-2021 End: 59-33-5665ljnussrbmlIqjcjvux Rohrbacher Other [employer] Other Start: 12-89-8642Jinuhe outpatient new 30 minutes Amanda John [facility] [place]Start: 03-30-2021 End: 78-32-7291Byfppsfmq department patient visitDATwin City Hospitaltart: 05-06-2020 End: 76-59-2210mdbdrlxiqaZJMVRLESouthview Medical Center Start: 05-06-2020 End: 39-47-2613Zbgsehomxy hospital visit by Magui Olivera Work Phone: stvz 2C Ortho/Med SurgComment on above:Post-op pain (Primary Dx)Start: 05-02-2020 End: 19-18-8092Hwgpejp encounter procedureDayton VA Medical Centertart: 05-02-2020 End: 96-84-6170Fqyqhducgu hospital visit by physicianStcdoroteo Covid Screening ScheduleSTCZ Covid ScreeningComment on above:Pre-op testing (Primary Dx)Start: 04-22-2020 End: 31-33-8679wavsnpxmdiGRZXBVXSouthview Medical Center Start: 04-22-2020 End: 31-34-9899qtpvkcxjxnADKMNEITriHealth Start: 04-22-2020 End: 75-68-5913Uxqxwkzgxj hospital visit by physicianSfatoumata C-Arm [address] [place] [address] RadiologyComment on above:ArrivedStart: 04-22-2020 End: 45-18-4608Djnyxdpcpk hospital visit by physicianSraisa Mercedes 2STVZ Pre-Admit Testing Procedures DateProcedureProcedure DetailPerforming ClinicianStart: 86-79-4378Gjrbf dip stick/tablet rgnt non-auto w/o micrscMario OGDEN Work Phone: Start: 82-29-7014Peirc dip stick/tablet rgnt non-auto w/o micrscpMima Duenas NP Work Phone: Start: 98-20-0214XDO THYROID STIM HORMONECorey Juan DO Work Phone: Start: 13-86-1815OWJ CBC WITH AUTO DIFFAmy Kwaku OGDEN Work Phone: Start: 01-71-9667JTCUTQI 1 HOURAmy Kwaku OGDEN Work Phone: Start: 62-34-3736Lgjfr dip stick/tablet rgnt non-auto w/o micrscpAmy Kwaku OGDEN Work Phone: Start: 52-68-3317ZFA UA (CLEAN/CATCH) FIRST COOK/MICRO IF IND.Les Juan DO Work Phone: Start: 13-68-5892QPT URINE MICROSCOPIC ONLYCorey Juan DO Work Phone: Start: 11-93-7922Aqdzw dip stick/tablet rgnt auto w/o microscopyRichard A Visci DO Work Phone: start: 78-37-8555KLSMUEUIZ VAGINITIS (HTRX)Les Juan DO Work Phone: Start: 00-57-8959FIK THYROID STIM HORMONECorey Juan DO Work Phone: Start: 66-80-5960Gimfi dip stick/tablet rgnt non-auto w/o micrscpCorey Juan DO Work Phone: Start: 11-94-0959Xwnrb dip stick/tablet rgnt non-auto w/o micrscpCorey Juan DO Work Phone: Start: 72-32-5431MFKYDZLO LAB TESTNot In System Ref ProvStart: 00-41-4606Xmsttlqa identification testAmanda Ford MEDIATION COMMISSIONER Work Phone: Start: 77-92-3938Snxtmryhgtqor of growth of fungi Amanda Ford MEDIATION COMMISSIONER Work Phone: Start: 95-21-4679Uhtuegwwsvp vaginalis detection Amanda Ford MEDIATION COMMISSIONER Work Phone: Start: 82-57-6933Rddeq cultureJennifer Logan MEDIATION COMMISSIONER Work Phone: Start: 90-22-2380Qjathqfeur ultrasound of gravid uterusArtemionnedmundo Ford MEDIATION COMMISSIONER Work Phone: Start: 49-85-7160LCMRGQOI LAB TESTNot In System Ref ProvStart: 51-59-5134OKM TESTCorey Juan DO Work Phone: Start: 76-86-7891Eaapkaen rubellaNot In System Ref ProvStart: 16-18-4393Nstmhphr Zak Lindquist MD Work Phone: Start: 69-92-0638Hwligowfcy glycosylated t0aIphzzsaa Provider ExternalStart: 84-18-7775WZK 1&2 AB/AG SCREEN (P24 AG)Not In System Ref ProvStart: 56-04-3948Jkwq ia hepatitis b surface antigenNot In System Ref Prov Start: 10-45-0378IGJTJDJH TOTAL(UNKNOWN SYPHILIS STATUS)Not In System Ref Prov Start: 94-81-6383OEFE AND SCREENNot In System Ref ProvStart: 09-21-2024 ULTRASOUND OFFICENot In System Ref ProvStart: 42-77-5858Pjscj dip stick/tablet rgnt non-auto w/o micrscpCorey Juan DO Work Phone: Start: 93-40-1852Og preg uterus after 1st trimest / gestationLiliana G David MEDIATION COMMISSIONER.RADIO OFFICER Work Phone: Start: 51-84-9816Jv preg uterus after 1st trimest / gestationLiliana G David MEDIATION COMMISSIONER.RADIO OFFICER Work Phone: Start: 96-68-3729Up pelvic nonobstetric real-time image Nydia Guy MD Work Phone: start: 53-55-6744Jtlbsfvf screenLILIANA MICKEYComment on above:Order Comment: Specimen Type: BLOOD SPECIMEN Ordering Facility: [facility] Address: [address] [place], [place] [address]Performed By: #### TSPN #### [facility] [id number] [address] [place] [address] [place] AMERICAStart: 05-94-3768BFL,APTIMA HPV,AGE GDLN Les Monsivaiso DO Work Phone: Start: 97-84-4170Votdqmdifqv observation [Identifier] in Cervix by Rose Enriquez PhD Work Phone: Start: 63-95-6790RA Shoulder Scope RCR/Biceps Tendon (Right)MEDIATION COMMISSIONER Amanda Logan Work Phone: Start: 70-00-8765Bizaenla tomography of abdomen and pelvis with contrastMD Mariam Appiah Work Phone: Start: 43-28-1395Avxczbskd for occult blood in fecesMD Mariam Appiah Work Phone: Start: 62-79-0391Ciryq cultureMD Mariam Appiah Work Phone: Start: 78-12-0035Eblej cultureMD Mariam Appiah Work Phone: Start: 17-08-6908Umdgh X-ray of right shoulderMD Mariam Appiah Work Phone: Start: 39-19-0870Yjprq metabolic panel calcium total Rei Montez Work Phone: Start: 65-15-2289Xldpj count complete auto&auto difrntl wbcMichael A Montez Work Phone: Start: 61-86-5336Feory esophagusGregdriss R Olivera Work Phone: Start: 02-26-1612Lxukl metabolic panel calcium total Rashard R Olivera Work Phone: Start: 62-96-6855Qhjsc count complete automatedGregdriss R Olivera Work Phone: Start: 80-46-7345Fsaxq metabolic panel calcium total Rashard R Olivera Work Phone: Start: 86-65-2110Pvdjc count complete automatedRashard Olivera Work Phone: Start: 05-06-2020 End: 53-28-1901CLUCJXAMXXO SLEEVE LAPAROSCOPIC ROBOTICRashard Olivera Work Phone: Start: 82-32-8425Yvhty test visual color cmprsn methsGlisa Olivera Work Phone: Start: 50-84-7110Vnimn iv surg pathology gross&microscopic examRashard Olivera Work Phone: Start: 29-98-2997Kcslvhjdrx exam chest 2 viewsRashard Olivera Work Phone: Start: 16-16-0990Cmvtw of nicotineRashard Olivera Work Phone: Start: 89-08-0879Kjsfi metabolic panel calcium total Rashard Olivera Work Phone: Start: 77-51-1236Iwtlv count complete Idania Olivera Work Phone: Start: 77-18-5986Fyomcffoljz timeRashard Olivera Work Phone: Start: 46-88-4093Fybavdgjmauizp time partial plasma/whole bloodRashard Olivera Work Phone: Start: 36-74-7103Qnu routine ecg w/least 12 lds i&r onlyRashard Olivera Work Phone: Start: 72-59-1491FGT REPORTHpf ScanningCholecystectomy Samir Thompson Comment on above:2016 Plan of Treatment DateCare ActivityDetailAuthorStart: 75-69-4206EYA Vaccine (1 - 1-dose 75+ series)RSV Vaccine (1 - 1-dose 75+ series)[facility] 2045 Zoster Vaccines (1 of 2)Zoster Vaccines (1 of 2)[facility]Start: 34-38-2707VZaQ,Tdap and Td Vaccines (2 - Td or Tdap)DTaP,Tdap and Td Vaccines (2 - Td or Tdap)[facility]Start: 12-25-2032 DTaP/Tdap/Td Vaccines (2 - Td or Tdap)DTaP/Tdap/Td Vaccines (2 - Td or Tdap) [facility] HospitalStart: 00-09-4759Czpki microalbumin profile DTaP,Tdap,Td Vaccine (2 - Td or Tdap)[facility]tart: 46-24-8339Qmaatysaf for malignant neoplasm of cervixUnPremier Health Atrium Medical CenterStart: 59-73-9841Gyvui BMI ScreeningAdult BMI ScreeningProNewark Hospitaltart: 24-72-0864Ldltqjb ScreeningTobacco ScreeningProNewark Hospitaltart: 12-05-2025 End: 61-68-8184WI MFM with or without consultUS MFM with or without consult Imaging Routine Previous gastric bypass affecting , antepartum Hypothyroidism affecting in second trimester 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 ([facility]) Obesity affecting in second trimester, unspecified obesity type Encounter for supervision of resulting from assisted reproductive technology, antepartum Expected: 12/05/2025 (Approximate), Expires: 12/05/2025[facility] Work Phone: comment on above:Expected: 12/05/2025 (Approximate), Expires: 12/05/2025Start: 08-21-2025 End: 99-00-3400Zukzhfv encounter procedureNOMS SH ENDOCRINOLOGYStart: 03-05-2025 End: 26-53-2011Rtbetlx encounter xttixovco90/18/2025 11:15 AM EST Appointment [facility] - Ultrasound [address] [place] [address] GuyQxenzdSalem [facility] - UltrasoundStart: 02-20-2025 End: 50-71-9318Hlgbdnu encounter procedureNOMS BCP OBStart: 02-19-2025 End: 08-25-2554Meazbrz encounter tgsvxfoam86/04/2025 1:00 PM EST Routine [facility] [address] [place], [id number] Les Martinez, DO [address] [place] [address] [facility] OBGYNStart: 02-07-2025 End: 59-08-1519NT MFM with or without consultUS MFM with or without consult Imaging Routine Hypothyroidism affecting in second trimester headache in second trimester Previous gastric bypass affecting , antepartum 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 ([facility]) Expected: 02/07/2025, Expires: 02/07/2026[facility] Work Phone: comment on above:Expected: 02/07/2025, Expires: 02/07/2026Start: 02-07-2025 End: 79-79-3829Ztklmwv encounter /23/2025 9:45 AM EDT Appointment [facility] [place] [address] [facility] [address] [place] [phone] Maternal Medicine [place]Start: 02-06-2025 End: 05-69-6559Hxpjyrn encounter procedureNOMS Ricco OBGYNComment on above: ArrivedStart: 02-03-2025 End: 82-84-9484WC MFM with or without consultUS MFM with or without consult Imaging Routine Previous gastric bypass affecting , antepartum Hypothyroidism affecting in second trimester 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 ([facility]) Obesity affecting in second trimester, unspecified obesity type Expected: 02/03/2025 (Approximate), Expires: 01/04/2026[facility] Work Phone: comment on above:Expected: 02/03/2025 (Approximate), Expires: 01/04/2026Start: 01-30-2025 End: 08-86-6206Ovbdyfyglcyz / ancillary services sfpqoqlaht22/15/2025 2:30 PM EDT Ancillary Procedure [facility] [address] [place] [id number] [facility] OBGYNStart: 01-16-2025 End: 66-75-6784LN for pregnancyUS OB follow up transabdominal approach Imaging Routine TSH (thyroid-stimulating hormone deficiency) Expected: 01/16/2025, Expires: 05/19/2025[facility] Work Phone: comment on above:Expected: 01/16/2025, Expires: 05/19/2025Start: 01-16-2025 End: 25-79-7025Isshfyy encounter procedureNO [place] OBGYNComment on above: ArrivedStart: 01-03-2025 End: 74-42-9579Twnneks encounter wiraxpfgn56/18/2025 2:15 PM EDT Appointment [facility] [place] [address] [facility] [address] [place] [address] Maternal Medicine [place]Start: 12-19-2024 End: 12-57-2191LGC panel - Blood by Automated countCBC Lab Routine Diabetes mellitus screening Expected: 12/19/2024 (Approximate), Expires: 12/19/2025[facility] Work Phone: comment on above:Expected: 12/19/2024 (Approximate), Expires: 12/19/2025Start: 12-19-2024 End: 15-40-7275Muwbzfmqwsa of glucose 1 hour after glucose challenge for glucose tolerance testGlucose tolerance, 1 hour Lab Routine Diabetes mellitus screening Expected: 12/19/2024 (Approximate), Expires: 12/19/2025[facility] HealthcareComment on above:Expected: 12/19/2024 (Approximate), Expires: 12/19/2025Start: 12-19-2024 End: 07-68-0671Vxahjmk encounter procedureNO [place] OBGYNComment on above: ArrivedStart: 95-37-5417RHXFR-19 Vaccine ( season)COVID-19 Vaccine ()[facility] HospitalSimple Admit BMdr SystemStart: 55-19-9825Lardzgywh vaccination [facility] Hospitaltart: 12-05-2024 End: 08-04-6177Olkzddf encounter procedureProOhioHealth O'[facility] US ImagingStart: 12-04-2024 End: 24-10-5122Xnllckidzuru / ancillary services cezudjpzub41/19/2025 8:30 AM EDT Ancillary Procedure [facility] [address] [place] [address] [facility] OBGYNStart: 55-78-3309Sawnowln admission [facility] Hospitaltart: 71-19-1239RplusicaqMarietta Memorial Hospitaltart: 62-05-0572Fdnrykil identified in Urine by CultureUrine Culture [facility] Hospitaltart: 11-30-2024 End: 60-63-0578Mbhop [facility] – Jacksontart: 11-20-2024 End: 19-89-8617Wrhph fetoprotein, maternalAlpha fetoprotein, maternal Lab Routine Need for maternal serum alpha-protein (MSAFP) screening ([facility]) Expected: 11/20/2024 (Approximate), Expires: 12/21/2024[facility] HealthcareComment on above:Expected: 11/20/2024 (Approximate), Expires: 12/21/2024Start: 11-20-2024 End: 94-77-6723EU for pregnancyUS OB 14+ weeks anatomy scan Imaging Routine Screening, , for anatomic survey ([facility]) Expected: 11/20/2024 (Approximate), Expires: 02/20/2025[facility] HealthcareComment on above:Expected: 11/20/2024 (Approximate), Expires: 02/20/2025Start: 11-20-2024 End: 90-09-0627Gzwfyiy encounter procedureNOMS BCP OBComment on above:Arrived Start: 10-22-2024 End: 26-33-4648Uwbqdml encounter igfyzjkoe14/07/2025 11:20 AM EDT Routine [facility] [address] [place] [phone] Les Martinez DO [address] [place], [place] [id number] NOM[facility] BCP OBStart: 91-79-5697Zjijtvtl identified in Urine by CultureUrine CultureThe Jewish Hospital Start: 70-02-4608Dioqkbt CultureGenital [facility] Start: 02-17-6840DaombSelect Medical TriHealth Rehabilitation Hospitaltart: 10-18-2024 [facility] Hospitaltart: 09-20-2024 End: 10-18-4868PYP/RhABO/Rh Lab Routine Missed menses , unspecified gestational age Expected: 09/20/2024 (Approximate), Expires: 09/20/2025N[facility]S HealthcareComment on above:Expected: 09/20/2024 (Approximate), Expires: 09/20/2025Start: 09-20-2024 End: 50-61-9801Goqzs type and Indirect antibody screen panel - BloodType and screen Lab Routine Missed menses , unspecified gestational age Expected: 09/20/2024 (Approximate), Expires: 09/20/2025[facility] Work Phone: comment on above:Expected: 09/20/2024 (Approximate), Expires: 09/20/2025Start: 09-20-2024 End: 60-95-3171Tgkdm of abuse panel - Urine by Screen methodRapid drug screen, urine Lab Routine , unspecified gestational age Encounter for supervision of normal first in first trimester Expected: 09/20/2024 (Approximate), Expires: 09/20/2025[facility] HealthcareComment on above:Expected: 09/20/2024 (Approximate), Expires: 09/20/2025Start: 09-13-2024 End: 51-71-0747tzmqfjkgfc13/29/2025 2:30 PM EDT Initial [facility] OB [facility] [place] [address] [phone] BCP OBStart: 09-13-2024 End: 64-76-7033Qymbqzpwfpvr / ancillary services ciitpaxqvv07/29/2025 2:00 PM EDT Ancillary Procedure [facility] OB [facility] [place] [phone] [phone] BCP OBStart: 09-03-2024 End: 86-06-5051Kyyhofx evaluation of patient and reportReproductive Endocrinology InfertilityComment on above: scanob scan, non ivfStart: 08-22-2024 End: 788445-ayflrnznsvdboy D3 [Mass/volume] in Serum or PlasmaVitamin D 25 hydroxy Lab Routine H/O gastric bypass Vitamin D deficiency Expected: 08/22/2024 (Approximate), Expires: 08/22/2025[facility] HealthcareComment on above: Expected: 08/22/2024 (Approximate), Expires: 08/22/2025Start: 08-22-2024 End: 99-91-8357Tnikyhmtk (Vitamin B12) [Mass/volume] in Serum or PlasmaVitamin B12 Lab Routine H/O gastric bypass Expected: 08/22/2024 (Approximate), Expires: 08/22/2025[facility] HealthcareComment on above:Expected: 08/22/2024 (Approximate), Expires: 08/22/2025Start: 08-22-2024 End: 78-77-2671Nkssgjyr (aka Vitamin B1)Thiamine (aka Vitamin B1) Lab Routine H/O gastric bypass Expected: 08/22/2024 (Approximate), Expires: 08/22/2025[facility] HealthcareComment on above:Expected: 08/22/2024 (Approximate), Expires: 08/22/2025Start: 08-22-2024 End: 15-77-4551Fjsswkogahv [Units/volume] in Serum or PlasmaTSH Lab Routine Abnormal thyroid function test Expected: 08/22/2024 (Approximate), Expires: 08/22/2025[facility] HealthcareComment on above:Expected: 08/22/2024 (Approximate), Expires: 08/22/2025Start: 08-22-2024 End: 39-87-7542Wzqtggmrv (T4) free [Mass/volume] in Serum or PlasmaT4, free Lab Routine Abnormal thyroid function test Expected: 08/22/2024 (Approximate), Expires: 08/22/2025[facility] HealthcareComment on above:Expected: 08/22/2024 (Approximate), Expires: 08/22/2025Start: 08-22-2024 End: 18-56-2573Fmfkeptahprnhbgx (T3) Free [Mass/volume] in Serum or PlasmaT3, free Lab Routine Abnormal thyroid function test Expected: 08/22/2024 (Approximate), Expires: 08/22/2025[facility] Work Phone: Comment on above:Expected: 08/22/2024 (Approximate), Expires: 08/22/2025Start: 08-22-2024 End: 44-60-5490Uxajjaa encounter /07/2025 10:00 AM EDT Office Visit [facility] [address] [place] [address] Darleen Sinclair MD [address] [place] [address] ArrivedNOSALEM MEMORIAL DISTRICT [facility]OSPITAL ENDOCRINOLOGYComment on above:Arrived Start: 08-20-2024 End: 98-83-1245VATOPAYTL ULTRASOUND WHIOBSTETRIC ULTRASOUND WHI Anc Imaging Routine 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) Expected: 08/20/2024, Expires: 08/20/2025[facility] Work Phone: Comment on above:Expected: 08/20/2024, Expires: 08/20/2025Start: 08-20-2024 End: 53-61-9271bhwfkzgxag53/05/2025 8:30 AM EDT [facility] Reproductive Endocrinology Infertility [address] [place] [id number] Melodie Hernandez APRN.RADIO OFFICER [address] [place] [id number] preg apptReproductive Endocrinology Infertility Comment on above:preg apptStart: 07-07-2024 End: 54-72-8675Itncqsc encounter procedureRice [facility] Comment on above:donor thawiui dStart: 05-09-2024 End: 36-14-8998lvxgkxdpsz25/22/2025 8:00 AM EST [facility] Reproductive Endocrinology Infertility [address] [place] [id number] Melodie Hernandez MEDIATION COMMISSIONER.RADIO OFFICER [address] [place] [address] donor sperm teachReproductive Endocrinology InfertilityComment on above:donor sperm teachStart: 76-62-7608Vmdshck referral [facility] Work Phone: Start: 03-11-2024 End: 019418-vjfpbvwkkijgqn D3 [Mass/volume] in Serum or PlasmaVITAMIN D 25 HYDROXY Lab Routine Reproductive mgmt, 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 Expected: 03/11/2024, Expires: 06/10/2024[facility] ClinicComment on above:Expected: 03/11/2024, Expires: 06/10/2024Start: 03-11-2024 End: 58-60-1772XXFJLYS SCREEN, EXPANDEDCARRIER SCREEN, EXPANDED Lab Routine Encounter for other genetic testing of female for procreative management Expected: 03/11/2024, Expires: 06/10/2024[facility] ClinicComment on above: Expected: 03/11/2024, Expires: 06/10/2024Start: 03-11-2024 End: 75-62-4039Owqhdqdvl trachomatis+Neisseria gonorrhoeae DNA [Presence] in Unspecified specimen by AC with probe detectionGONORRHEA/CHLAMYDIA NAAT Lab Routine Special screening examination for infectious diseases Expected: 03/11/2024, Expires: 06/10/2024[facility] ClinicComment on above:Expected: 03/11/2024, Expires: 06/10/2024Start: 03-11-2024 End: 62-94-3861Qnkltqzeefduoib IgG Ab [Units/volume] in Serum or PlasmaCMV IGG ANTIBODY BL Lab Routine Special screening examination for infectious diseases Expected: 03/11/2024, Expires: 06/10/2024[facility] ClinicComment on above: Expected: 03/11/2024, Expires: 06/10/2024Start: 03-11-2024 End: 42-13-4342Fjtxilewedezowq IgM Ab [Units/volume] in Serum or PlasmaCMV IGM AB Lab Routine Special screening examination for infectious diseases Expected: 03/11/2024, Expires: 06/10/2024[facility] ClinicComment on above:Expected: 03/11/2024, Expires: 06/10/2024Start: 03-11-2024 End: 90-77-0888Vnjelpwfvk A1c in BloodHEMOGLOBIN A1C Lab Routine Reproductive mgmt, 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 Expected: 03/11/2024, Expires: 06/10/2024 [facility] CenterComment [facility]:Expected: 03/11/2024, Expires: 06/10/2024Start: 03-11-2024 End: 08-77-9636Tkaoslyqx B virus core Ab [Presence] in SerumHEPATITIS B CORE ANTIBODY TOTAL Lab Routine Special screening examination for infectious diseases Expected: 03/11/2024, Expires: 06/10/2024[facility]Comment [facility] above: Expected: 03/11/2024, Expires: 06/10/2024Start: 03-11-2024 End: 08-92-4969Dbtyxltjs B virus surface Ag [Presence] in SerumHEPATITIS B SURFACE ANTIGEN Lab Routine Special screening examination for infectious diseases Expected: 03/11/2024, Expires: 06/10/2024[facility] ClinicComment on above:Expected: 03/11/2024, Expires: 06/10/2024Start: 03-11-2024 End: 55-97-5962Jmjjgrvjc C virus Ab [Presence] in SerumHEPATITIS C ANTIBODY IA WITH CONFIRMATION Lab Routine Special screening examination for infectious d iseases Expected: 03/11/2024, Expires: 06/10/2024[facility] ClinicComment on above:Expected: 03/11/2024, Expires: 06/10/2024Start: 03-11-2024 End: 96-91-4426REH 1+2 Ab [Presence] in Serum or Plasma by ImmunoassayHIV 1/2 COMBO WITH REFLEX TO DIFFERENTIATION Lab Routine Special screening examination for infectious diseases Expected: 03/11/2024, Expires: 06/10/2024[facility] ClinicComment on above:Expected: 03/11/2024, Expires: 06/10/2024Start: 03-11-2024 End: 73-05-5294IIXNVRA IGG ANTIBODYRUBELLA IGG ANTIBODY Lab Routine Special screening examination for infectious diseases Expected: 03/11/2024, Expires: 06/10/2024[facility] ClinicComment on above:Expected: 03/11/2024, Expires: 06/10/2024Start: 03-11-2024 End: 81-96-1270LREJZXVN TREPONEMAL W/REFLEXSYPHILIS TREPONEMAL W/REFLEX Lab Routine Special screening examination for infectious diseases Expected: 03/11/2024, Expires: 06/10/2024[facility] ClinicComment on above:Expected: 03/11/2024, Expires: 06/10/2024Start: 03-11-2024 End: 25-36-6096WZBF + SCREEN PRENATALTYPE + SCREEN Blood Bank Routine Reproductive mgmt, 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 Expected: 03/11/2024, Expires: 06/10/2024[facility] ClinicComment on above:Expected: 03/11/2024, Expires: 06/10/2024Start: 03-11-2024 End: 40-34-7366HUEPALPJZ ZOSTER IGGVARICELLA ZOSTER IGG Lab Routine Special screening examination for infectious diseases Expected: 03/11/2024, Expires: 06/10/2024[facility] Work Phone: Comment on above:Expected: 03/11/2024, Expires: 06/10/2024Start: 03-09-2024 End: 45-58-2507wdwgvaevyb11/22/2024 10:00 AM EST [facility] Reproductive Endocrinology Infertility [address] [place] [id number] Melodie Hernandez, MEDIATION COMMISSIONER.RADIO OFFICER [address] [place] [address] Donor sperm teachReproductive Endocrinology InfertilityComment on above:Donor sperm teachStart: 02-20-2024 End: 65-85-1363Xynxkha encounter ecrjughrs05/04/2024 2:50 PM EST Office Visit [facility] [address] [place] [id number] Les Martinez, DO [address] [place] [address] ArrivedCASA COL[facility] OBComment on above:ArrivedStart: 55-39-7938Uiauf-19 Vaccine ( season)Covid-19 Vaccine ( season)[facility]: 75-98-7289Dfbfw-19 Vaccine () Covid-19 Vaccine ()[facility]: 64-54-7559Ougbzwixm vaccinationInfluenza Vaccine (#1)[facility]Start: 12-07-2023 End: 23-56-7197PyawosteuMarietta Memorial Hospitaltart: 29-60-3895NjuxourkoMarietta Memorial Hospitaltart: 08-85-1666HcbidtwjaMarietta Memorial Hospitaltart: 36-85-1184OliifrgbqMarietta Memorial Hospitaltart: 59-60-2805BdfrxalvnMarietta Memorial Hospitaltart: 06-11-2022 End: 59-12-0781PcwudldmgMarietta Memorial Hospitaltart: 67-92-7778Jdrbsvjz admissionMarietta Memorial Hospitaltart: 39-56-2304CjkdpcigsMarietta Memorial Hospitaltart: 25-11-8739BdawxeoeoMarietta Memorial Hospitaltart: 65-48-3202KwjfwbwpqMarietta Memorial Hospitaltart: 24-65-7005Npytwyvf identified in Urine by CultureUrine CultureMarietta Memorial Hospitaltart: 88-61-4037Odvpekpv identified in Urine by CultureUrine CultureMarietta Memorial Hospitaltart: 05-16-2020 End: 18-17-2632Awijsy Visit05/16/2020 Office Visit Bariatrics Rashard Olivera, [address] [place] [id number] Camille Linton Invasive Bariatric SurgStart: 05-06-2020 End: 10-70-2293Ilhepcgr EncounterSTVZ ORComment on above:XI LAPAROSCOPIC ROBOTIC GASTRIC BYPASS BEN-EN-Y, LIVER BIOPSY, EGD- GI UNIT SCHEDULED.Start: 05-02-2020 End: 77-15-7381RPYDK-19COVID-19 Lab Routine Pre-op testing Expected: 05/02/2020, Expires: 05/01/2021[facility] on above:Expected: 05/02/2020, Expires: 05/01/2021tart: 05-02-2020 End: 24-74-0603Hpkunr VisitOhiohealth [facility] Min Invasive Bariatric SurgStart: 01-64-9122IBP QnTSH testingTrinity Health System East Campus: 40-98-0508Neuqthnkn vaccinationFlu vaccine (#1)[facility]: 66-96-1157Ytuxzyvvy for malignant neoplasm of cervixEast [facility] Regional Hospitaltart: 57-24-2867DNtR,Tdap and Td Vaccines (1 - Tdap)DTaP,Tdap and Td Vaccines (1 - Tdap)[facility]: 02-00-5938ANyM/Tdap/Td vaccine (1 - Tdap)DTaP/Tdap/Td vaccine (1 - Tdap)[facility]: 38-33-6707Hdeupqofj B Vaccine (1 of 3 - 19+ 3-dose series) Hepatitis B Vaccine (1 of 3 - 19+ 3-dose series)[facility]: 01-63-7023Xwajcwryd B Vaccines (1 of 3 - 19+ 3-dose series)Hepatitis B Vaccines (1 of 3 - 19+ 3-dose series)[facility]: 2014 Urine microalbumin profileDTaP,Tdap,Td Vaccine (1 - Tdap)[facility]: 59-25-8865Hpuen BMI Follow Up PlanAdult BMI Follow Up PlanAtrium Health [facility]etart: 54-20-1921Nwnrc BMI ScreeningAdult BMI ScreeningAtrium Health [facility] Rehabilitation [facility]ottetart: 67-33-9825Ysznprx ScreeningAnxiety ScreeningEast [facility] Regional Hospitaltart: 51-39-0369Jqmsdwgedc ScreeningDepression ScreeningEast [facility] Regional Hospitaltart: 95-56-6609Zouhjorjq C screeningHepatitis C ScreeningEast [facility] Hospitaltart: 70-87-0382UPX screeningHIV ScreeningEast [facility] Regional Hospitaltart: 02-30-7163HTC screeningHIV screenTrinity Health System [facility] Campus: 32-68-4888Iupofkyzl vaccination Varicella Vaccines (1 of 2 - 13+ 2-dose series)[facility] Start: 58-36-4980Xosacmbcoh ScreeningDepression ScreeningNationwide Children's Hospital Start: 84-45-1898Jdgkrzt ScreeningTobacco ScreeningAtrium Health [facility]etart: 13-08-9131ABH vaccine (1 - 2-dose series)HPV vaccine (1 - 2-dose series)[facility]: 36-23-0307YNQ Vaccines (1 of 1 - Standard series)MMR Vaccines (1 of 1 - Standard series)[facility]: 49-49-3130Bkxxdxume vaccine (1 of 2 - 2-dose childhood series)Varicella vaccine (1 of 2 - 2-dose childhood series)[facility]: 83-94-1400Biheurwta C screeningHepatitis C screenTrinity Health System [facility] Campus: 15-46-4893NYG screening HIV ScreeningC[facility]innati [facility]: 13-18-5245Pnpuk panelLipid PanelCincinnati Shriners Hospital: 51-69-5813Wznrwh Adult Physical Yearly Adult PhysicalUnPremier Health Atrium Medical CenteraPTT in Platelet poor plasma by Coagulation assayThe Jewish HospitalBacteria identified in Genital specimen by Aerobe cultureThe Jewish HospitalBacteria identified in Urine by CultureUrine culture Microbiology Routine Missed menses Ordered: 09/20/2024[facility] HealthcareComment on above:Ordered: 09/20/2024alcitriol [Mass/volume] in Serum or PlasmaThe Jewish HospitalCBC W Auto Differential panel - BloodCBC and differential Lab Routine Missed menses , unspecified gestational age Ordered: 09/20/2024[facility] HealthcareComment on above:Ordered: 09/20/2024HLAMYDIA TRACHOMATIS (GENITO/STI)CHLAMYDIA TRACHOMATIS (GENITO/STI) Lab Routine Exposure to STD Ordered: 11/20/2024[facility] HealthcareComment on above:Ordered: 11/20/2024ontinuous pulse oximetryPulse oximetry, continuous Respiratory Care Routine Every 4hr until discontinued starting 05/06/2020[place]:Every 4hr until discontinued starting 05/06/2020T Abdomen and Pelvis WO and W contrast IV The Jewish HospitalCytology Cervical or vaginal smear or scraping studyPap Smear Pathology and Cytology Routine Well woman exam with routine gynecological exam Ordered: 02/20/2024[facility] Healthcare Work Phone: comment on above:Ordered: 02/20/2024Electromyography The Jewish HospitalF5 gene mutations found [Identifier] in Blood or Tissue by Molecular genetics method NominalThe Jewish Hospital Factor VIII: C assayThe Jewish HospitalGlucose measurement estimated from glycated hemoglobinThe Jewish HospitalHemoglobin A1c/Hemoglobin.total in BloodThe Jewish HospitalHemoglobin A1c/Hemoglobin.total in BloodHemoglobin A1c Lab Routine Missed menses , unspecified gestational age Ordered: 09/20/2024[facility] HealthcareComment on above: Ordered: 09/20/2024Hepatitis B virus surface Ag [Presence] in Serum or Plasma by ImmunoassayHepatitis B surface antigen Lab Routine Missed menses , unspecified gestational age Ordered: 09/20/2024[facility] HealthcareComment on above: Ordered: 09/20/2024Hepatitis C virus Ab [Presence] in Serum or Plasma by ImmunoassayHepatitis C antibody Lab Routine Missed menses , unspecified gestational age Ordered: 09/20/2024[facility] HospitalComment on above:Ordered: 09/20/2024HIV-1/HIV-2 antigen/antibody combination immunoassayHIV-1 and HIV-2 antibodies Lab Routine Missed menses , unspecified gestational age Ordered: 09/20/2024[facility] HospitalComment on above:Ordered: 09/20/2024INR in Platelet poor plasma by Coagulation assayThe Jewish Hospital Mullerian inhibiting substance [Mass/volume] in Serum or PlasmaThe Jewish HospitalNebulizer therapyHHN Treatment Respiratory Care Routine TID until discontinued starting 05/06/2020[facility] [place], [place]Comment on [place]: TID until discontinued starting 05/06/2020Neisseria gonorrhoeae DNA [Presence] in Unspecified specimen by AC with probe detectionNeisseria gonorrhea DNA probe, direct Lab Routine Exposure to STD Ordered: 11/20/2024[facility] Comment on above:Ordered: 11/20/2024Oxygen therapy [Minimum Data Set]Initiate Oxygen Therapy Protocol Respiratory Care Routine Daily until discontinued starting 05/06/2020[facility] [place], [place]Comment [place]:Daily until discontinued starting 05/06/2020atient EducationSouthern [facility] Medical Center [facility]tr Work Phone: Patient referralSouthern Ohio Medical Center Ctr Work Phone: Reagin Ab [Presence] in Serum by RPRRPR Lab Routine Missed menses , unspecified gestational age Ordered: 09/20/2024[facility] HealthcareComment on above:Ordered: 09/20/2024Rubella antibody, IgGRubella antibody, IgG Lab Routine Missed menses , unspecified gestational age Ordered: 09/20/2024[facility] HealthcareComment on above:Ordered: 09/20/2024Spirometry panelIncentive spirometry Respiratory Care Routine Every 2hr while awake until discontinued starting 05/06/2020[facility] [place], [place]Comment on above:Every 2hr while awake until discontinued starting 05/06/2020URESWAB(R) ADVANCED VAGINITIS PLUS, TMASURESWAB(R) ADVANCED VAGINITIS PLUS, TMA Pathology and Cytology Routine Exposure to STD Ordered: 11/20/2024[facility] Work Phone: comment on above:Ordered: 11/20/2024Surgical Pathology Surgical Pathology Lab Routine Release Upon Ordering for 1 Occurrences starting 05/06/2020[facility] [place], [place]Comment on above:Release Upon Ordering for 1 Occurrences starting 05/06/2020 End: 84-59-5738Dfozotmgdgy [Units/volume] in Serum or PlasmaTSH Lab Routine Thyroid disease every 4 weeks for 6 Occurrences starting 11/20/2024 until 11/20/2025[facility] HealthcareComment on above:every 4 weeks for 6 Occurrences starting 11/20/2024 until 11/20/2025Thyrotropin [Units/volume] in Serum or PlasmaTSH Lab Routine TSH (thyroid-stimulating hormone deficiency) Ordered: 01/16/2025[facility] HealthcareComment on above:Ordered: 01/16/2025von Willebrand factor (vWf) Ag [Units/volume] in Platelet poor plasmaThe Jewish Hospitalvon Willebrand factor (vWf) multimers in Platelet poor plasma by ImmunoblotThe Jewish Hospitalvon Willebrand factor (vWf) ristocetin cofactor actual/normal in Platelet poor plasma by Platelet ag [facility] Immunizations Immunization DateImmunizationNotesCare NgshyctiEfguhjae85-64-7804pwgourb toxoid, reduced diphtheria toxoid, and acellular pertussis vaccine, Melvin Sinclair MD Work Phone: [facility] HospitalPskkbkcshf26-72-7090DEARR-24 mRNA-1273 (Moderna) MELY Ford Work Phone: [facility]04-06-2021COVID-19 mRNA-1273 (Moderna)MELY Ford Work Phone: [facility] Payers DatePayer CategoryPayerPolicy [id number]-[id number] [id number] 2023Medicaid [id number] [id number] [id number] 1.2.840.706676.1.13.239.2.7.3.823652.74244-63-7239Atlcfyd [id number] 2.0.1.810897.3.57[id number] 2.0.1.197398.3.57[id number] 2.840.1.578697.3.57[id number] 2.840.1.113183.3.579.[id number] 2.840.1.144665.3.57[id number] 2.16840.1.277878.3.57[id number] 2.840.1.617800.3.57[id number] 2.840.1.317379.3.57[id number] 2..1.146101.3.57[id number] 2.840.1.224839.3.579.2.[id number] 2..1.497283.3.57[id number] 2..1.949354.3.579.2.72124-45-3391Zkiyuem01121599 2.840.1.347682.3.57[id number] 2.0.1.168890.3.579.2.84[id number] 2.840.1.484338.3.579.2.889045-14-6847Omvtmbu60223192 2.840.1.312861.3.579.2.645101-86-8663Wlhkwxe13203864 2.840.1.909874.3.579.2.854084-74-3094Spmlrmt95441163 2.840.1.801729.3.579.2.110742-58-7881Imsefwd27742711 2..840.1.351064.3.579.2.619479-39-3144Fxytzha29474139 2..840.1.019638.3.579.2.292364-17-0276Afhldbg35185294 2..840.1.901792.3.579.2.175691-19-2030Lfetrpv46960756 2.0.1.064557.3.579.2.039198-90-3184Yusfphc80049652 2.0.1.889806.3.579.2.895701-41-3110Yjiflnd48551118 2.840.1.356852.3.579.2.593709-76-6939Wfbgxbu1113051 2..1.351586.3.579.2.176021-52-2926Rnagciv8360512 2.0.1.824114.3.579.2.456588-07-1745Syeqslk669140211 2.0.1.689092.3.579.2.221998-85-2860Iaafnfm035484490 2.840.1.835025.3.579.2.1286Private Health InsuranceUnc Health [facility] Claims [id number] 2.[id number] 2.840.1.082678.3.579.2.706Dztmzej69066021 2.840.1.650532.3.579.2.450Jdkrggy46710955 2.840.1.652966.3.579.2.531 Social History DateTypeDetailFacilityStart: 04-22-2020 End: 08-64-5066Uxnzckq smoking status NHISNever smokerKindred Hospital [place], [place]Start: 04-22-2020 End: 42-48-8889Cueosqs use and exposureNever used[place], [place]Start: 04-22-2020 End: 44-95-4050Kugsxik intakeCurrent non-drinker of alcohol (finding)[place], [place]Start: 79-09-6820Woq Assigned At BirthNot on [facility], CTExposure to SARS-CoV-2 (event)Not [place], [place]Start: 01-17-2023 Tobacco smoking statusNeverBlanchard Valley Health System CenterStart: 11-28-2023 End: 03-07-5835Akm [facility]igned [facility] [employer] Other Start: 43-48-1080Wjh Assigned At [facility]: 47-69-9898Kctslza smoking status NHISCurrent some day smokerMarietta Memorial Hospitaltart: 04-18-2023 End: 49-43-0982Oxldemc smoking status NHISSmoker (finding)[facility] Hospitaltart: 11-28-2023 End: 10-44-5771Rairsfp smoking status NHISSmokes tobacco dailyNOMS Healthcare Start: 84-25-0885Pxesjyt of tobacco useCigarette SmokerNOMS HealthcareStart: 11-28-2023 End: 65-79-1746Qhhrkhpcae smoked current (pack per day) - Reported0.5NOMS HealthcareStart: 11-28-2023 End: 36-17-9118Juucfpbgt beverage intakeEx-drinker (finding)[facility] Start: 19-80-5572Fyqmunw Commentcaffeine: 1-2 cups per day teaNOMS Healthcare Start: 52-61-2500Fpnpuo identityIdentifies as female gender (finding)NOM HealthcareStart: 11-21-2014 End: 25-90-9938HfbSnyqfg (finding)[facility] HospitalTobacco smoking status NHISTobacco smoking consumption unknownEast [facility] Regional Hospitaltart: 77-17-4863WnrnznrsaWbumtnssqMarietta Memorial Hospitaltart: 10-18-2024 End: 18-39-4953Lfmafzf smoking status NHISEx-smoker (finding)[facility] HospitalNEGATED: Highlighted rowC[facility] Clinic [facility] Medical Equipment Procedure CodeEquipment CodeEquipment Original TextEquipment IdentifierDates Functional endoscopic sinus surgery (FESS) with sinuplastyBUTTON NASAL SEPTAL 3CMFDAStart: 62-41-9469Svmrszcbzq endoscopic sinus surgery (FESS) with sinuplastyBUTTON NASAL SEPTAL 3CMFDAStart: 96-32-8790Uizyaebqtp endoscopic sinus surgery (FESS) with sinuplastyBUTTON NASAL SEPTAL 3CMFDAStart: 10-15-2019 Functional endoscopic sinus surgery (FESS) with sinuplastyBUTTON NASAL SEPTAL 3CMFDAStart: 06-44-6686Ufuhmfdywp endoscopic sinus surgery (FESS) with sinuplastyBUTTON NASAL SEPTAL 3CMFDAStart: 80-64-9278Akkuslrfnc endoscopic sinus surgery (FESS) with sinuplastyBUTTON NASAL SEPTAL 3CMFDAStart: 10-15-2019 Functional endoscopic sinus surgery (FESS) with sinuplastyBUTTON NASAL SEPTAL 3CMFDAStart: 24-71-5199Wnnmgjqkms endoscopic sinus surgery (FESS) with sinuplastyBUTTON NASAL SEPTAL 3CMFDAStart: 22-96-8757Wjfsabbvjz endoscopic sinus surgery (FESS) with sinuplastyBUTTON NASAL SEPTAL 3CMFDAStart: 10-15-2019 Functional endoscopic sinus surgery (FESS) with sinuplastyBUTTON NASAL SEPTAL 3CMFDAStart: 90-75-1699Klqdtoiuik endoscopic sinus surgery (FESS) with sinuplastyBUTTON NASAL SEPTAL 3CMFDAStart: 10-87-5470Tbkctwcxjf endoscopic sinus surgery (FESS) with sinuplastyBUTTON NASAL SEPTAL 3CMFDAStart: 10-15-2019 Functional endoscopic sinus surgery (FESS) with sinuplastyBUTTON NASAL SEPTAL 3CMFDAStart: 11-90-3103Gyiedhiccm endoscopic sinus surgery (FESS) with sinuplastyBUTTON NASAL SEPTAL 3CMFDAStart: 00-84-1394Csqzzulpxk endoscopic sinus surgery (FESS) with sinuplastyBUTTON NASAL SEPTAL 3CMFDAStart: 10-15-2019 Functional endoscopic sinus surgery (FESS) with sinuplastyBUTTON NASAL SEPTAL 3CMFDAStart: 47-46-7453Rgpmzowwxd endoscopic sinus surgery (FESS) with sinuplastyBUTTON NASAL SEPTAL 3CMFDAStart: 46-63-6507Ndtxyjkiec endoscopic sinus surgery (FESS) with sinuplastyBUTTON NASAL SEPTAL 3CMFDAStart: 10-15-2019 Functional endoscopic sinus surgery (FESS) with sinuplastyBUTTON NASAL SEPTAL 3CMFDAStart: 07-00-8662Gircfdrzbt endoscopic sinus surgery (FESS) with sinuplastyBUTTON NASAL SEPTAL 3CMFDAStart: 38-95-2254Rrotrdjaya endoscopic sinus surgery (FESS) with sinuplastyBUTTON NASAL SEPTAL 3CMFDAStart: 10-15-2019 Functional endoscopic sinus surgery (FESS) with sinuplastyBUTTON NASAL SEPTAL 3CMFDAStart: 95-50-0120Loeqyt/ligament bone anchor, non-bioabsorbable ()[id number] FDAStart: 22-30-2437Aypgex/ligament bone anchor, non-bioabsorbable()[id number] FDA Start: 50-28-8642Hspuaj/ligament bone anchor, non-bioabsorbable ()[id number] FDAStart: 62-44-0245Hrhety/ligament bone anchor, non-bioabsorbable()[id number] FDAStart: 12-07-2023 Goals DatePatient GoalDesired Activity/StatePersonal health goal Functional Status NglkQhjmkiocavCnuiygHeokkxup13-50-3364Pwgwbpfyuh statusPatient at Baseline [facility] Work Phone: [phone]) [phone]pxempdqt statusPatient at Baseline [facility] Work Phone: Mental Status KjbrJlmnlrbbvdEuzkfsQmkywtah39-54-4395Daqmxzwyr functionCognitive Status [facility] Work Phone: 1(446) 418-51030138424-61-8204Vatvtusiq functionCognitive Status Patient at BaselineSouthern [facility] Work Phone: Clinical Notes 07-16-2021 to 02-06-2025 Note Date & VibtKmaaAtboipwi35-75-5883 History of Present illness Narrative* MELVI Engle [...] is . Assessment/Plan ICD-10-CM 1. Third trimester ([facility]) Z34.93 2. 29 weeks gestation of ([facility]) Z3A.29 POCT urinalysis dipstick manually resulted Return [...] behalf of: MELVI Engle documented in this encounterEllett Memorial HospitalWstedzbzyo91-73-5218 History of Present illness Narrative* Mima Duenas NP - 01/16/2025 11:20 AM [...] nursing note reviewed. Exam conducted with a dope weigh operator present. Vitals: Estimated body mass index is 38.49 kg/m as calculated from the following: Height as of 08/22/24: 5' 11 . Weight as of this encounter: 276 lb. BP: 122/80 No LMP recorded. Patient is . ASSESSMENT & PLAN ICD-10-CM 1. 26 weeks gestation of ([facility]) Z3A.26 POCT urinalysis dipstick manually resulted 2. Second trimester ([facility]) Z34.92 3. TSH (thyroid-stimulating hormone deficiency) E03.8 [...] of: Mima Duenas NP documented in this encounterEllett Memorial HospitalAitrcoarum72-09-8525 Miscellaneous Notes* Telephone Encounter - Roslyn Griffin RN - 01/03/2025 3:44 PM EDT Called patient to schedule her follow up survey in 4-6 weeks per appointment tracker. No answer left message to call back to schedule the follow up ultrasound. documented in this encounterNationwide [facility] Telephone encounter Note* Telephone Encounter - Roslyn Griffin RN - 01/03/2025 3:44 PM EDT Called patient to schedule her follow up survey in 4-6 weeks per appointment tracker. No answer left message to call back to schedule the follow up ultrasound. [facility] [id number] History of Present illness Narrative* MELVI Engle [...] PLAN ICD-10-CM 1. 22 weeks gestation of ([facility]) Z3A.22 POCT urinalysis dipstick manually resulted 2. Second trimester ([facility]) Z34.92 POCT urinalysis dipstick manually resulted 3. [...] behalf of: MELVI Engle documented in this encounterEllett Memorial HospitalFprkwsovdv16-57-9208 History of Present illness Narrative* Enrike Lindquist [...] follows with the behavioral health up in [place] History of migraines. Has been getting some [...] mouth in the morning., Disp: , Rfl: wt470-kych-dtvkw acid ( 19) 29 mg iron- 1 [...] Smoking status: Former Types: Cigarettes Start date: 2024 Smokeless tobacco: Never Vaping Use Vaping status: [...] Calcium: recommend 1000-1200mg daily; if deficient, recommend 2902-6226 mg PO daily in divided doses Vitamin [...] 5. 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 The kennel attendant should be made awareat the time of [...] Enrike Lindquist MD, FACOG (she/hers) Maternal- Medicine [facility] [address]st [place] [address] This document was created with [employer] technology. Though I make every effort to review the dictation as it is transcribed, on occasion the spoken word can be misinterpreted by the technology leading to inappropriate words, phrases, or sentences. This note is addressed to the requesting provider as a consultation for clinical guidance. Specificmedical abbreviations are occasionally used and those are generally approved by the [place]?Board of?Obstetrics and?Gynecology?as well as?Marilee davila abbreviations. The above plan of care was based solely on the diagnoses for which a consultation was requested. ?More frequent testing may be indicated based on her other medical/obstetrical conditions. The management of other or medical conditions is beyond the scope of requested consultation and will c ontinue to be followed by the primary communication assistant or primary care provider. Note to patient: [...] CF Have you been seen here at [facility] in a previous ? NA Recent ER visits or hospitalizations? See notes above Bring blood sugar log or meter with you today? (Please bring them with you for every visit at [facility]) NA Flu vaccine (Feb-June)? NA Any concerns that you would like me to mention to the provider today? Questions about glucose testing and her having gastric bypass surgery documented in this encounterNationwide [facility]08[facility] History of Present illness Narrative* Alana [...] nursing note reviewed. Exam conducted with a dope weigh operator present. Vitals: Estimated body mass index [...] gonorrhea DNA probe, direct 3. Second trimester ([facility]) Z34.92 POCT urinalysis dipstick manually resulted 4. 18 weeks gestation of ([facility]) Z3A.18 5. Need for maternal serum alpha-protein (MSAFP) screening ([facility]) Z36.1 Alpha fetoprotein, maternal Alpha fetoprotein, maternal 6. Screening, , for anatomic survey ([facility]) Z36.89 US OB 14+ weeks anatomy scan [...] of: Les Martinez DO documented in this encounterEllett Memorial [id number] History of Present illness Narrative* Mima Duenas [...] nursing note reviewed. Exam conducted with a dope weigh operator present. Vitals: Estimated body mass index is 31.24 kg/m as calculated from the following: Height as of 08/22/24: 5' 11 . Weight as of this encounter: 224 lb. BP: 110/62 No LMP recorded. Patient is . ASSESSMENT & PLAN ICD-10-CM 1. 13 weeks gestation of ([facility]) Z3A.13 POCT urinalysis dipstick manually resulted 2. Second trimester ([facility]) Z34.92 POCT urinalysis dipstick manually resulted 3. Thyroid disease E07.9 4. H/O gastric sleeve Z90.3 5. H/O iron deficiency anemia Z86.2 6. resulting from in vitro fertilization in first trimester ([facility]) O09.811 Return OB: Patient presents today for [...] History of gastric sleeve willmake referral to [facility]. Documented by Mima Duenas NP on behalf of: Les Martinez DO documented in this encounterEllett Memorial HospitalRnarrruydb92-11-0371 Radiology Diagnostic study [facility] [place] [address] Ultrasound Report Signed Patient: Jaz Sanders MR#: [id number] : 1995 Acct:[id number] Age/Sex: 29 / F ADM Date: 5 Loc: ER Room: Type: [facility] ER Attending Dr: Ordering Provider: Kassidy [...] Jr., D.O. 10/18/2024 2:21 PM Dictation Location: [place] [address] Tech: Natalie Haji Transcribed By: MAITE 10/18/24 1421 Dictated By: Sravan Dickinson Jr, DO 10/18/24 1419 Signed By: 10/18/24 1421 [facility]06-05-2025 History of Present illness Narrative * [...] screen, urine; Future Nurse Note: Patient declined [place] at this time. Patient is an IVF from [facility]. OB Intake: Patient presents today for first OB visit. Patients history has been reviewed in great detail including any potential risks. Patient signed consent forms and patient desires testing in both trimesters. Patient currently has no complaints and has been advised to drink 6-8 glasses of water a day, eatno raw or undercooked meat, and [facility]. Patient has also been advised to not [...] by: Marsha Asif MA documented in this encounterEllett Memorial HospitalBoocdvlpmg37-57-4923 NoteHNO ID: [id number] Author: MELODIE HERNANDEZ APRN.JARROD Service: ? Author Type: Nurse Practitioner Type: Procedures Filed: 09/05/2024 22:45 Note Text: WHI JAMEL IUI PROCEDURE NOTE Date: 07/31/2024 Primary Proceduralist: Melodie Hernandez APRN.RADIO OFFICER Consents and Labels Consent Signed: Informed Consent obtained and on the chart Labels Verified With Patient: Yes Indications: Jaz Sanders, is a 29 year old female here today for intrauterine insemination. IUI # 3. Cycle Day: Last menstrual period: 07/19/2024 [place] Protocol: UNIVERSAL PROTOCOL / SAFETY CHECKLIST Procedure [...] Sanders DATE: September 05, 2024 TIME: 10:45 [facility]05-19-2025 History of Present illness Narrative* Manisha Weaver APRN.RADIO OFFICER - 09/03/2024 5:39 PM EDT Jaz Sanders [...] 03, 2024 5:39 PM documented in this encounterUniversity Hospitals Ahu[facility]05-19-2025 NoteHNO ID: [id number] Author: MANISHA WEAVER APRN.CNP Service: ? Author Type: Nurse [...] Manisha Weaver APRN.CNP September 03, 2024 5:39 [facility]05-15-2025 NoteHNO ID: [id number] Author: MIKEY TORRES MD Service: ? Author Type: Physician Type: Progress Notes Filed: 08/30/2024 16:36 Note Text: Viable ratliff IUP Size equal Date. Plan: patient to follow up with her ob for care. Stacy Banuelos, [facility]05-15-2025 History of Present illness Narrative* Mikey Torres [...] scheduled Melodie Hernandez APRN.CNP documented in this encounterUniversity Hospitals Ahuja [facility] Center05-13-2025 NoteHNO ID: [id number] Author: MELODIE HERNANDEZ APRN.CNP Service: ? Author [...] scan next week as scheduled Melodie Hernandez APRN.CNPHighland District Hospital05-09-2025 Telephone encounter Note* Telephone Encounter - [...] schedule the patient for the following- Location: [facility] Provider: nurse Visit type: scan Reason for visit/appointment notes: scan Date: 08/28 Time (requested): 1110 If slot is full, please schedule the closest open slot. Call to patient needed: no [facility]05-09-2025 Miscellaneous Notes* Telephone Encounter - Melodie Hernandez [...] schedule the patient for the following- Location: [facility] Provider: nurse Visit type: scan Reason for visit/appointment notes: scan Date: 08/28 Time (requested): 1110 If slot is full, please schedule the closest open slot. Call to patient needed: no * Telephone Encounter - Angella Mccarthy - 08/23/2024 10:37 AM EDT Name: Jaz Sanders called today. : 1995 (home) [phone] (cell) Reason for call: pt called today informing the nurse she has been experiencing pain of level 4 from1-10. Pt has been experiencing pain for 2 day. 5 weeks today. The patients preferred pharmacy has been captured for this encounter? Angella Easton documented in this encounterUniversity Hospitals Ahu[facility] Center05-09-2025 Telephone encounter Note * Telephone Encounter - Arminda Ward RN - 08/24/2024 1:58 PM EDT See 08/23/24 LIBBY Ward RN August 24, 2024 1:58 PM [facility]05-09-2025 Miscellaneous Notes* Telephone Encounter - Arminda Ward RN - 08/24/2024 1:58 PM EDT See 08/23/24 LIBBY Ward RN August 24, 2024 1:58 PM * Telephone Encounter - Manisha Ding - 08/24/2024 11:52 AM EDT Pt would like a call back documented in this encounterUniversity Hospitals Ahuja Medical Center05-09-2025 Telephone encounter Note * Telephone Encounter - Manisha Ding - 08/24/2024 11:52 AM EDT Pt would like a call back [facility]05-08-2025 Telephone encounter Note* Telephone Encounter - Angella Mccarthy - 08/23/2024 10:37 AM EDT Name: Jaz Sanders called today. : 1995 (home) [phone] (cell) Reason for call: pt called today informing the nurse she has been experiencing pain of level 4 from1-10. Pt has been experiencing pain for 2 day. 5 weeks today. The patients preferred pharmacy has been captured for this encounter? Angella Morillo Financial Aids Officer [facility]05-08-2025 Telephone encounter Note* Telephone Encounter - Arminda Ward RN - 08/23/2024 8:53 AM EDT See 08/20 Distance health visit Arminda Ward RN August 23, 2024 8:53 AM [facility]05-08-2025 Miscellaneous Notes* Telephone Encounter - Arminda Ward RN - 08/23/2024 8:53 AM EDT See 08/20 Distance health visit Arminda Ward RN August 23, 2024 8:53 AM documented in this encounterUniversity Hospitals Ahuja Medical Center05-07-2025 History of Present illness Narrative* Darleen Sinclair [...] levothyroxine 50 mcg daily, administered in the mail machine operator on an empty stomach. There have [...] 1 year (around 08/22/2025). documented in this encounterEllett Memorial HospitalYidmazewxv48-86-5813 NoteHNO ID: [id number] Author: MELODIE HERNANDEZ APRN.JARROD Service: ? Author Type: Nurse [...] visit. Either the patient or their legal resources representative has been informed of the risks [...] from assisted reproductive technology in first trimester ([facility]) O09.811 OBSTETRIC ULTRASOUND [facility] Plan: further labwork needed: no scan [...] which included preparing to see the patient, [id number] patient care, completing clinical documentation, obtaining and/or [...] be grammatical and typographical errors missed in proofreading.[facility]05-05-2025 History of Present illness Narrative* Melodie Hernandez APRN.RADIO OFFICER - 08/20/2024 8:33 AM EDT Images from [...] visit. Either the patient or their legal resources representative has been informed of the risks [...] in first trimester (HCC) O09.811 OBSTETRIC ULTRASOUND [facility] Plan: further labwork needed: no scan scheduled: 09/03 medications to discontinue: patient to discuss status with her providers Schedule with OB: 09/13 Melodie Hernandez APRN.CNP August 20, 2024 8:33 AM Please schedule the patient for the following- Location: [place] Provider: nurse Visit type: Reason for visit/appointment notes: scan Date: 09/03 Time (requested): 1040 If slot is full, please schedule the closest open slot. Call to patient needed: no I spent a total of 30 minutes on the date of the service which included preparing to see the patient, [id number] patient care, completing clinical documentation, obtaining and/or [...] errors missed in proofreading. documented in this encounterUniversity Hospitals Ahuja Medical Center05-01-2025 Telephone encounter Note * Telephone Encounter - Daniel Hanna APRN.CNP - 08/16/2024 5:15 PM EDT Called patient back to phone [facility]no answer. Lm for patient to look out for [employer] message. Daniel Hanna APRN.CNP August 16, 2024 5:15 PM [facility]05-01-2025 Miscellaneous Notes* Telephone Encounter - Daniel Hanna APRN.CNP - 08/16/2024 5:15 PM EDT Called patient back to phone number listed in Epic-no answer. Lm for patient to look out for [employer] message. Daniel Hanna APRN.CNP August 16, 2024 5:15 PM * Telephone Encounter - Morillo Financial Aids Officer, Lana - 08/16/2024 12:29 PM EDT Name: Jaz Sanders called today. : 1995 (home) [phone] (cell) Reason for call: pt called that she got positive test, she has been having having cramping since last night , it happens every hours for couple minutes. The patients preferred pharmacy has been captured for this encounter? yes Angella Moralezdad Financial Aids Officer documented in this encounterUniversity Hospitals Ahuja Medical Center05-01-2025 Telephone encounter Note * Telephone Encounter - Morillo Financial Aids Officer, Lana - 08/16/2024 12:29 PM EDT Name: Jaz Sanders called today. : 1995 (home) [phone] (cell) Reason for call: pt called that she got positive test, she has been having having cramping since last night , it happens every hours for couple minutes. The patients preferred pharmacy has been captured for this encounter? yes Angella Morillo Financial Aids Officer [facility]04-30-2025 Telephone encounter Note* Telephone Encounter - Manisha Ding - 08/15/2024 2:10 PM EDT Pt is preg and wants to know if she can take benadryl due to her having hives [facility]04-30-2025 Miscellaneous Notes* Telephone Encounter - Manisha Ding - 08/15/2024 2:10 PM EDT Pt is preg and wants to know if she can take benadryl due to her having hives documented in this encounterUniversity Hospitals Ahuja Medical Center04-15-2025 NoteHNO ID: [id number] Author: DOMINGUEZ BARRY, ? Service: ? Author Type: Disc Pad Plate Filler Type: Progress Notes Filed: 09/05/2024 22:45 Note Text: IUI Cryobio Donor # [id number] Pre: frozen washed specimen Post: 82 M/ml, 67% Insem # 27.5 millionHighland District Hospital04-15-2025 NoteHNO ID: [id number] Author: DOMINGUEZ BARRY, ? Service: ? Author Type: Disc Pad Plate Filler Type: Progress Notes Filed: 07/31/2024 15:26 Note Text: Thaw for IUI. [facility]Mer[facility] History of Present illness Narrative* Dominguez Barry - 07/31/2024 3:25 PM EDT Thaw for IUI. Dominguez Barry documented in this encounterUniversity Hospitals Ahuja Medical Center04-15-2025 NoteHNO ID: [id number] Author: DOMINGUEZ BARRY, ? Service: ? Author Type: Disc Pad Plate Filler Type: Progress Notes Filed: 09/05/2024 22:45 Note Text: IUI specimen released to provider Dominguez Barry July 31, 2024 3:24 PMCMercy Memorial Hospital04-15-2025 NoteHNO ID: [id number] Author: MUSTAPHA TELLO MA Service: ? Author Type: Scrap Wheeler Type: Progress Notes Filed: 07/31/2024 15:12 Note Text: Patient verified by full name and date of . Jaz Sanders is here today for an IUI. LMP: 07/19/2024 Natural cycle IUI Timed With: Ovulation Predictor Kit , Date: 07/30/2024 Key Account Coordinator offered: Patient declines Mustapha TelloSANAZ July 31, 2024 3:12 [facility]04-14-2025 Telephone encounter Note* Telephone Encounter - Melodie Hernandez APRN.CNP - 07/30/2024 5:58 PM EDT patient's OPK today was dark but not positive Plan: test again tomorrow. if darker, schedule IUI on Tuesday if software engineering project manager than today, schedule IUI the same day Melodie Hernandez APRN.CNP July 30, 2024 6:00 PM [facility]04-14-2025 Miscellaneous Notes* Telephone Encounter - Melodie Hernandez APRN.CNP - 07/30/2024 5:58 PM EDT patient's OPK today was dark but not positive Plan: test again tomorrow. if darker, schedule IUI on Tuesday if software engineering project manager than today, schedule IUI the same day Melodie Hernandez APRN.CNP July 30, 2024 6:00 PM * Telephone Encounter - Manisha Ding - 07/30/2024 3:15 PM EDT N- ivf Pt has questions regarding IUI documented in this encounterUniversity Hospitals Ahuja Medical Center04-14-2025 Telephone encounter Note * Telephone Encounter - Manisha Ding - 07/30/2024 3:15 PM EDT N- ivf Pt has questions regarding IUI [facility]03-23-2025 NoteHNO ID: [id number] Author: NICHELLE GONZALEZ, ? Service: ? Author Type: Disc Pad Plate Filler Type: Progress Notes Filed: 07/19/2024 07:50 Note Text: IUI Cryobio #[id number] Washed frozen specimen Post: 31 m/ml, 77% Insem#: 10.8 millionHighland District Hospital03-23-2025 History of Present illness Narrative* Nichelle Gonzalez - 07/08/2024 8:07 AM EDT IUI Cryobio #[id number] Washed frozen specimen Post: 31 m/ml, 77% Insem#: 10.8 million * Nichelle Gonzalez - 07/07/2024 10:10 AM EDT IUI specimen released to provider Nichelle Gonzalez July 07, 2024 10:10 AM documented in this encounterUniversity Hospitals Ahuja Medical Center03-22-2025 NoteHNO ID: [id number] Author: NICHELLE GONZALEZ, ? Service: ? Author Type: Disc Pad Plate Filler Type: Progress Notes Filed: 07/19/2024 07:50 Note Text: IUI specimen released to provider Nichelle Gonzalez July 07, 2024 10:10 [facility]03-22-2025 NoteHNO ID: [id number] Author: MIKEY TORRES MD Service: ? Author [...] Cycle Day: 14 Last menstrual period: 06/24/2024 [place] Protocol: UNIVERSAL PROTOCOL / SAFETY CHECKLIST Procedure [...] the primary surgeon/proceduralist with assistance. Stacy Banuelos [facility]03-22-2025 Procedure note* Mikey Torres MD - 07/07/2024 [...] Cycle Day: 14 Last menstrual period: 06/24/2024 [place] Protocol: UNIVERSAL PROTOCOL / SAFETY CHECKLIST Procedure [...] primary surgeon/proceduralist with assistance. Stacy Banuelos MD [facility]03-22-2025 Procedure note* Mikey Torres MD - 07/07/2024 [...] Cycle Day: 14 Last menstrual period: 06/24/2024 [place] Protocol: UNIVERSAL PROTOCOL / SAFETY CHECKLIST Procedure [...] assistance. Stacy Banuelos MD documented in this encounterUniversity Hospitals Ahuja Medical Center03-22-2025 NoteHNO ID: [id number] Author: NICHELLE GONZALEZ, ? Service: ? Author Type: Disc Pad Plate Filler Type: Progress Notes Filed: 07/07/2024 09:41 Note Text: Thaw for IUI Nichelle GonzalezHighland District Hospital03-22-2025 History of Present illness Narrative* Nichelle Gonzalez - 07/07/2024 9:41 AM EDT Thaw for IUI Nichelle Gonzalez documented in this [facility]03-21-2025 Telephone encounter Note * Telephone Encounter - Becki Isaacs PA-C - 07/06/2024 3:24 PM EDT Called the pt back. Pt had an US done 07/04/24--Possible small 4 mm intracervical canal polyp. No other abnormal findings. Advised to move on with IUI tomorrow. FYI: Dr. Guy and Silvia, MANAGER PAPER. Please let me know if any different instructions. Becki Isaacs PA-C July 06, 2024 3:26 PM [facility]03-21-2025 Miscellaneous Notes* Telephone Encounter - Becki Isaacs PA-C - 07/06/2024 3:24 PM EDT Called the pt back. Pt had an US done 07/04/24--Possible small 4 mm intracervical canal polyp. No other abnormal findings. Advised to move on with IUI tomorrow. FYI: Dr. Guy and Silvia, MANAGER PAPER. Please let me know if any different instructions. Becki Isaacs PA-C July 06, 2024 3:26 PM * Telephone Encounter - Sivan Roberto - 07/06/2024 2:39 PM EDT Patient states she is calling back unsure about if she is okay to proceed with iui tomorrow. Pleasecall patient. documented in this encounterUniversity Hospitals Ahuja Medical Center03-21-2025 Telephone encounter Note * Telephone Encounter - Sivan Roberto - 07/06/2024 2:39 PM EDT Patient states she is calling back unsure about if she is okay to proceed with iui tomorrow. Pleasecall patient. [facility]03-21-2025 Telephone encounter Note* Telephone Encounter - Arminda Ward RN - 07/06/2024 11:17 AM EDT See other TE for 07/04 Arminda Ward RN July 06, 2024 11:17 AM [facility]03-21-2025 Miscellaneous Notes* Telephone Encounter - Arminda Ward [...] to be removed first. documented in this encounterUniversity Hospitals Ahuja Medical Center03-20-2025 Telephone encounter Note * Telephone Encounter - Sivan Roberto - 07/05/2024 3:02 PM EDT On day 11 now, inquiring about if okay to proceed with iui with cervical polyp. Patient believes itwill be tomorrow or Tuesday for iui- inquiring if polyp needs to be removed first. [facility]03-19-2025 Telephone encounter Note* Telephone Encounter - Melodie [...] positive. Patient is worried about ovulation. She brokc cycle day 10 today, largest follicle on ultrasound was 15.8mm. Reassured patient that she is growing a follicle and I'm not surprised OPK is not yet positive. She is predicted to ovulate on Tuesday or Tuesday. Melodie Hernandez APRN.CNP July 04, 2024 7:30 PM [facility]03-19-2025 Miscellaneous Notes* Telephone Encounter - Melodie Hernandez [...] 04, 2024 7:30 PM documented in this encounterUniversity Hospitals Ahuja Medical Center03-19-2025 NoteHNO ID: [id number] Author: IGNACIO GUY MD Service: ? Author Type: Physician Type: Progress Notes Filed: 07/04/2024 16:27 Note Text: [facility]CMercy [facility]03-19-2025 History of Present illness Narrative* Ignacio Guy MD - 07/04/2024 4:27 PM EDT 1 documented in this encounterUniversity Hospitals Ahuja Medical Center02-22-2025 NoteHNO ID: [id number] Author: IGNACIO GUY MD Service: ? Author [...] Cycle Day: 13 Last menstrual period: 05/28/2024 [place] Protocol: UNIVERSAL PROTOCOL / SAFETY CHECKLIST Procedure [...] was discussed with the patient or authorized resources representative. The patient or authorized resources representative has agreed to proceed with the sensitive examination. 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 Vidhi Sheldon MD IUI IUI Date: [...] stopped. Will get pelivc scan here at [facility] if not with this IUI prior pt proceeding with another attmept at IUI. Ignacio Guy MD June 09, 2024 12:30 PM SIGNATURE: Vidhi Sheldon MD PATIENT NAME: Jaz Sanders DATE: June 09, 2024 TIME: 12:01 [facility]02-22-2025 Procedure note* Vidhi Sheldon MD - [...] Cycle Day: 13 Last menstrual period: 05/28/2024 [place] Protocol: UNIVERSAL PROTOCOL / SAFETY CHECKLIST Procedure [...] was discussed with the patient or authorized resources representative. The patient or authorized resources representative has agreed to proceed with the sensitive examination. 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 Vidhi Sheldon MD IUI IUI Date: [...] stopped. Will get pelivc scan here at [facility] if not with this IUI prior pt proceeding with another attmept at IUI. Ignacio Guy MD June 09, 2024 12:30 PM SIGNATURE: Vidhi Sheldon MD PATIENT NAME: Jaz Sanders DATE: June 09, 2024 TIME: 12:01 PM [facility] Work Phone: [phone] 487-961202-22-2025 Procedure note* Vidhi Sheldon MD - 06/09/2024 [...] Cycle Day: 13 Last menstrual period: 05/28/2024 [place] Protocol: UNIVERSAL PROTOCOL / SAFETY CHECKLIST Procedure [...] was discussed with the patient or authorized resources representative. The patient or authorized resources representative has agreed to proceed with the sensitive examination. 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 Vidhi Sheldon MD IUI IUI Date: [...] stopped. Will get pelivc scan here at [facility] if not with this IUI prior pt proceeding with another attmept at IUI. Ignacio Guy MD June 09, 2024 12:30 PM SIGNATURE: Vidhi Sheldon MD PATIENT NAME: Jaz Sanders DATE: June 09, 2024 TIME: 12:01 PM documented in this encounterUniversity Hospitals Ahuja Medical Center02-22-2025 NoteHNO ID: [id number] Author: NICHELLE GONZALEZ, ? Service: ? Author Type: Disc Pad Plate Filler Type: Progress Notes Filed: 06/09/2024 12:30 Note Text: IUI Cryobio #: [id number] Washed frozen sample Post: 42 m/ml, 74% Insem#: 15.5 millionHighland District Hospital02-22-2025 History of Present illness Narrative* Nichelle Gonzalez - 06/09/2024 11:52 AM EST IUI Cryobio #: [id number] Washed frozen sample Post: 42 m/ml, 74% Insem#: 15.5 million * Nichelle Gonzalez - 06/09/2024 11:24 AM EST IUI specimen released to provider Nichelle Gonzalez June 09, 2024 11:24 AM documented in this encounterUniversity Hospitals Ahuja Medical Center02-22-2025 NoteHNO ID: [id number] Author: NICHELLE GONZALEZ, ? Service: ? Author Type: Disc Pad Plate Filler Type: Progress Notes Filed: 06/09/2024 11:48 Note Text: Thaw for IUI Nichelle GonzalezHighland District [facility] History of Present illness Narrative* Nichelle Gonzalez - 06/09/2024 11:47 AM EST Thaw for IUI Nichelle Colt Pauly documented in this encounterUniversity Hospitals Ahuja Medical Center02-22-2025 NoteHNO ID: [id number] Author: NICHELLE GONZALEZ, ? Service: ? Author Type: Disc Pad Plate Filler Type: Progress Notes Filed: 06/09/2024 12:30 Note Text: IUI specimen released to provider Nichelle E Larrykimberly June 09, 2024 11:24 [facility]01-22-2025 Instructions* Patient Instructions* Melodie Hernandez APRN.CNP - 05/09/2024 9:08 AM EST Images from the original note were not included. REPRODUCTIVE ENDOCRINOLOGY AND INFERTILITY DONOR SPERM HANDOUT Donor Sperm Checklist: Complete Next Steps: Progesterone blood test 6-8 days after your LH surge - please let me know the test result when you get it. IUI Procedure consent form - sent to you via [employer] today. Please sign when you can. Order sperm Financial Clearance - I sent your chart to the front office manager today. Treatment plan: Natural cycle/IUI x 3 cycles. Please schedule a follow up visit with Dr. Brooks velasco are not after 3 cycles. Sperm Ordering Instructions We need 1 vial per cycle. You will likely need 3-6 vials to establish a . You are welcome to buy more than one and store with the [facility]. Mailing address: Attention: Nichelle Gonzalez [address] [place] [address], [address] [place] [address] Storage at the [facility] is available. Fees are yearly and only start once you are not actively trying. Please ask the financial team ([phone]) for current cost information. Donor Insemination Scheduling Instructions Please call during the first business day of your menstrual cycle to let the front office manager know you will be testing and [...] please call the office to discuss. Location [facility] [id number] [place] [address], [place] [address] Available every day, including weekends and holidays (except Zulay and New Years.) Weekday IUI scheduling The day you get your LH surge, please call [phone] between 8:00am - 12:00pm to schedule your insemination for the next day. If you call after 12pm, we may not be able to schedule your appointment. IUI s are done by appointment only. You will make 2 appointments -an arrival time and a procedure time. [address], [place] [address] Available every day, including weekends and holidays (except Zulay and New Years.) Available for IUI using fresh and frozen samples. Check in location for sperm wash and IUI: [address] [facility]. The sperm wash takes 60-90 minutes. Weekend/Holiday [...] to do another IUI: Call the front office manager to make sure you are financially cleared. Ask to speak to an SKYLAR to confirm your treatment plan. Important phone number: [phone] documented in this encounterUniversity Hospitals Ahuja Medical Center01-22-2025 NoteHNO ID: [id number] Author: MELODIE HERNANDEZ APRN.CNP Service: ? Author [...] visit. Either the patient or their legal resources representative has been informed of the risks [...] negative donor is a carrier of: CFTR, [id number] Vial types available: IUI and ART Considerations [...] which included preparing to see the patient, vpxt-hs-cpbe patient care, completing clinical documentation, obtaining and/or [...] medical team. Standard se (more content not included)...[facility] 05-09-2024 History of Present illness Narrative* Melodie Hernandez APRN.RADIO OFFICER - 05/09/2024 8:12 AM EST Images from [...] visit. Either the patient or their legal resources representative has been informed of the risks [...] them. No double whammies. Sperm bank/donor #: [facility] [id number] Blood type: A negative CMV Status: negative Genetic carrier considerations: patient Myriad negative donor is a carrier of: CFTR, [id number] Vial types available: IUI and ART Considerations [...] which included preparing to see the patient, ozet-fg-uhsk patient care, completing clinical documentation, obtaining and/or [...] errors missed in proofreading. documented in this encounterUniversity Hospitals Ahuja Medical Center01-15-2025 History of Present illness Narrative* Nola Enriquez, PhD - 05/02/2024 2:00 PM EST Psychosocial Consultation for Third Green Party Reproduction Virtual visit with audio and visual equipment POS 10 No SI, Falls, Tobacco use On May 02, 2024, I met virtually with Jaz and Sravan Sanders. They were referred by Melodie Hernandez at [facility] for their required psychosocial consultation regarding third libertarian reproduction. Relevant History Jaz, 29, and Demetrius, 26, have been together for 8.5 years and for 6.5 years. 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 Demetrius also works at that [employer] station. The couple has been trying to [...] Lynda's have already chosen a donor from [employer] in [place]. They chose this donor because heis CMV-, [...] third libertarian reproductive option. documented in this [facility] Work Phone: 1(211) 924-808811-24-2024 NoteHNO ID: [id number] Author: MELODIE HERNANDEZ APRN.RADIO OFFICER Service: ? Author Type: Nurse Practitioner [...] visit. Either the patient or their legal resources representative has been informed of the risks [...] Practice cycle Plan: Episode created.Reviewed checklist - [employer] message sent Practice cycle: recommended OPKs to test for ovulation and timing of IUIs, patient to call with +OPK, confirm ovulation with progesterone level Follow up once checklist is complete to discuss test results and next steps. Melodie Hernandez APRN.RADIO OFFICER March 11, 2024 10:42 PM I spent a total of 55 minutes on the date of the service which included preparing to see the patient, swxw-ue-adid patient care, completing clinical documentation, obtaining and/or [...] be grammatical and typographical errors missed in proofreading.[facility]11-24-2024 History of Present illness Narrative* Melodie Hernandez APRN.JARROD - 03/11/2024 10:42 PM EST Images from [...] visit. Either the patient or their legal resources representative has been informed of the risks [...] Practice cycle Plan: Episode created.Reviewed checklist - [employer] message sent Practice cycle: recommended OPKs to test for ovulation and timing of IUIs, patient to call with +OPK, confirm ovulation with progesterone level Follow up once checklist is complete to discuss test results and next steps. Melodie Hernandez APRN.RADIO OFFICER March 11, 2024 10:42 PM I spent a total of 55 minutes on the date of the service which included preparing to see the patient, ntaf-td-ovgr patient care, completing clinical documentation, obtaining and/or [...] errors missed in proofreading. documented in this encounterUniversity Hospitals Ahuja Medical Center11-22-2024 Instructions* Patient Instructions* Melodie Hernandez APRN.CNP - [...] please call the office. ~Silvia Hernandez APRN.CNP [phone] Donor Sperm Checklist Donor Sperm Labs Mandatory [...] Sravan must be present Amanda Gillespie MD ([place]) - [phone] Rani Sims (Filomena Hernandez) - [phone] - virtual visit Nola Enriquez, - virtual [...] to date). Please get scheduled with your boilermaker assembly and erection or pcp if needed. Practice with Ovulation Predictor Kit (OPK) First day of full flow is cycle day #1. Start using on ovulation predictor kit on cycle day 10. Use your OPK once a day, in the morning with your second urine of the day. Send in a [employer] message when you get a positive OPK. [...] Once your checklist is complete, please call [phone] to get scheduled for a donor sperm follow up appointment. Sperm Bank Website [place] [facility] https://www.cryobank.com/ [facility] https://cryobio.com/ [employer] https://www.cryosinternational.com/ [place] [facility] https://Honest Buildings.Sutures [place]/ [place] [facility] https://www.EndoGastric Solutions.com/ [facility] [place] https://www.thespermbankofca.org/ [place] [facility] https://www.OnlineMarket.Sutures [place]/ [facility] https://www.Azzure ITtex.com/ If you would like to start browsing [...] is needed. Test: CPT Code: Blood type 35258 HIV 85842 CMV IgG 11411 CMV IgM 52623 Syphilis 34179 Hepatitis B Surface Ag 56457 Hepatitis B Core Ab, IgG and IgM 62968 Hepatitis C Ab 35933 Rubella 76613 Varicella 00181 Chlamydia 98172 Gonorrhea 24686 For the above tests, reference the diagnosis code of Z11.9 documented in this encounterUniversity Hospitals Ahuja Medical Center11-12-2024 Plan of care note* JAMEL Plan Note [...] for three cycles. They will meet with MANAGER PAPER to review the IUI checklist and sign consents. I spent a total of 45 minutes on the date of the service which included preparing to see the patient, ikrf-hq-pqtv patient care, completing clinical documentation, counseling and educating the patient/family/caregiver, and ordering medications, tests, or procedures. Ignacio Guy MD [facility]11-12-2024 Miscellaneous Notes* JAMEL Plan Note - Ignacio [...] for three cycles. They will meet with MANAGER PAPER to review the IUI checklist and sign consents. I spent a total of 45 minutes on the date of the service which included preparing to see the patient, tltl-ws-wgft patient care, completing clinical documentation, counseling and educating the patient/family/caregiver, and ordering medications, tests, or procedures. Ignacio Guy MD documented in this encounterUniversity Hospitals Ahuja Medical Center11-12-2024 Instructions* Patient Instructions* Ignacio Guy MD - 02/28/2024 2:47 PM EST Dear Jaz Sanders Using [facility] at [facility] requires some set up (outlined below). Requirements to use donor sperm at the [facility]: Teaching with [employer] SKYLAR - please call [phone] to schedule a donor sperm teach with [...] to help with the donor selection process. [employer] Carrier Screen is the test ordered. Processing time takes 2-3 weeks. If your insurance doesn't cover it, the self-pay de oliveira is ~$250. Counselor You and your partner/spouse (if applicable) must see a counselor for a donor sperm assessment. Amanda Gillespie MD ([place]) - [phone] Rani Sims (Filomena Hernandez) - [phone] Doris Lama ([place]) - [phone] Consent form - must be signed by [...] Required Tests Test: CPT Code: Blood type 28518 HIV 11303 CMV IgG 33023 CMV IgM 97932 Syphilis 15254 Hepatitis B Surface Ag 52602 Hepatitis B Core Ab, IgG and IgM 42884 Hepatitis C Ab 63541 Rubella 31049 Varicella 07145 Chlamydia 11187 Gonorrhea 58842 For the above tests, reference the diagnosis code of Z31.49. [employer] Carrier Screen - [employer] will check coverage for you. For this [...] your test results into consideration. Sperm Bank [employer] [place] [facility] ([place]) [facility] [place] [facility] [employer] [facility] [employer] ([facility] [place]) [place] [facility] *Do not order any sperm until your checklist is complete. We will review ordering instructions at your follow up visit. Next Steps: Call insurance to verify coverage for donor sperm panel. Schedule donor sperm teach with my nurse practitioner, Silvia Hernandez. Ignacio Guy MD [phone] documented in this encounterUniversity Hospitals Ahuja Medical Center11-12-2024 NoteHNO ID: [id number] Author: IGNACIO GUY MD Service: ? 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 They will meet with MANAGER PAPER to review the IUI checklist and sign consents. I spent a total of 45 minutes on the date of the service which included preparing to see the patient, nroe-fd-ynsl patient care, completing clinical documentation, counseling and educating the patient/family/caregiver, and ordering medications, tests, or procedures. 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 They will meet with MANAGER PAPER to review the IUI checklist and sign consents. I spent a total of 45 minutes on the date of the service which included preparing to see the patient, rumf-wi-ozyl patient care, completing clinical documentation, counseling and educating the patient/family/caregiver, and ordering medications, tests, or procedures. Ignacio Guy MD documented in this encounterUniversity Hospitals Ahuja Medical Center11-11-2024 Evaluation note* Diagnosis Onset Date Resolution Status Admit Date Degenerative superior labral anterior-to -posterior (SLAP) tear of right matthias acuteNovember 2023 2:25pmLaxity of ligamentacuteNovember 2023 2:25pm Multidirectional instability of glenohumeral jointacuteNovember 2023 2:25pmOther instability, right shoulderacuteNovember 2023 2:25pmRight carpal tunnel syndromeacuteNovember 2023 2:25pmStatus post arthroscopy of right shoulderacuteNovember 2023 2:25pmStatus post surgerynoneactive February 27, 2024 2:25pmDegenerative superior labral wtadplqf-hq-pnfmovblj (SLAP) tear of right shoacuteJanuary 2024 2:29pmLaxity of ligamentacute April 23, 2024 2:29pmMultidirectional instability of glenohumeral jointacute April 23, 2024 2:29pmOther instability, right shoulderacuteJanuary 2024 2:29pmRight carpal tunnel syndromeacuteJanuary 2024 2:29pmStatus post arthroscopy of right shoulderacuteJanuary 2024 2:29pm [facility] Work Phone: 1(415) 313-227211-11-2024 Evaluation note* Diagnosis Onset Date Resolution Status Admit Date Degenerative superior labral anterior-to -posterior (SLAP) tear of right matthias acuteNovember 2023 2:25pmLaxity of ligamentacuteNovember 2023 2:25pm Multidirectional instability of glenohumeral jointacuteNovember 2023 2:25pmOther instability, right shoulderacuteNovember 2023 2:25pmRight carpal tunnel syndromeacuteNovember 2023 2:25pmStatus post arthroscopy of right shoulderacuteNovember 2023 2:25pmStatus post surgerynoneactive February 27, 2024 2:25pmDegenerative superior labral dzzqhupm-ik-wrdolrbhq (SLAP) tear of right shoacuteJanuary 2024 2:29pmLaxity of ligamentacute April 23, 2024 2:29pmMultidirectional instability of glenohumeral jointacute April 23, 2024 2:29pmOther instability, right shoulderacuteJanuary 2024 2:29pmRight carpal tunnel syndromeacuteJanuary 2024 2:29pmStatus post arthroscopy of right shoulderacuteJanuary 2024 2:29pmAcute urticariaacute April 26, 2024 8:29amHypothyroidacuteJanuary 2024 8:29amOther chronic painacuteJanuary 2024 8:29am [facility] Work Phone: 1(500) 861-990511-04-2024 History of Present illness Narrative* Marsha AsifSANAZ [...] nursing note reviewed. Exam conducted with a dope weigh operator present. Vitals: Estimated body mass index [...] behalf of: TRENT Engle documented in this encounterEllett Memorial HospitalYpgozdcaqn19-40-5828 Note [id number]09-03-2024 Evaluation note* Diagnosis Onset Date Resolution Status Admit Date Degenerative superior labral anterior-to -posterior (SLAP) tear of right matthias acuteSeptember 2023 10:11amLaxity of ligamentacuteSeptember 2023 10:11amMultidirectional instability of glenohumeral jointacuteSeptember 2023 10:11amOther instability, right shoulderacuteSeptember 2023 10:11am Right carpal tunnel syndromeacuteSeptember 2023 10:11amStatus post arthroscopy of right shoulderacuteSeptember 2023 10:11amStatus post surgery noneactiveSeptember 2023 10:11amDegenerative superior labral qbllxujq-iq-amffjskbr (SLAP) tear of right shoacuteOctober 2023 11:58am Laxity of ligamentacuteOctober 2023 11:58amMultidirectional instability of glenohumeral jointacuteOctober 2023 11:58amOther instability, right shoulderacuteOctober 2023 11:58amRight carpal tunnel syndromeacuteOctober 2023 11:58amStatus post arthroscopy of right shoulderacuteOctober 2023 11:58amStatus post surgerynoneactiveOctober 2023 11:58amDegenerative superior labral unnegbux-aj-sfsqwwonp (SLAP) tear of right shoacuteNovember 2023 2:25pmLaxity of ligamentacuteNovember 2023 2:25pm Multidirectional instability of glenohumeral jointacuteNovember 2023 2:25pmOther instability, right shoulderacuteNovember 2023 2:25pmRight carpal tunnel syndromeacuteNovember 2023 2:25pmStatus post arthroscopy of right shoulderacuteNov2023 2:25pmStatus post surgerynoneactive February 27, 2024 2:25pm [facility] Work Phone: 1(330) 444-128207-17-2024 NoteEducation Materials Orthopedics Musculoskeletal Pain Musculoskeletal pain [...] mouth or applied to the skin. Take gjsg-djt-ysshyva and prescription medicines only as told by [...] provider. Document Revised: 08/07/2020 Document Reviewed: 07/16/2020 [place] Patient Education ? 2022 Gour[employer].[facility] HospitalWckzpbsg24-12-4568 Evaluation note* Encounter Date Diagnosis Assessment Notes Treatment Notes Treatment Clinical Notes Apr, Intertrigo (ICD-10 - L30.4) [facility] Other 01-30-2024 Evaluation note* Encounter Date Diagnosis Assessment Notes Treatment Notes Treatment Clinical Notes Apr, Labral tear of randolph jimenez right, initial encounter (ICD-10 - S43.431A) Apr,Multidirectional instability [...] pain of right shoulder (ICD-10 - M25.511) [facility] Other 01-05-2024 Evaluation note* Encounter Date Diagnosis Assessment Notes Treatment Notes Treatment Clinical Notes Apr, Other iron deficiency anemia (IC D-10 - D50.8) [facility] Other 12-28-2023 Evaluation note* Encounter Date Diagnosis Assessment Notes Treatment Notes Treatment Clinical Notes Mar, Vitamin D deficiency (ICD-10 - E 55.9) [facility] Other 10-23-2023 Evaluation note* Encounter Date Diagnosis [...] agreement for this and referral was given. [facility] Other 09-21-2023 Evaluation note* Encounter Date Diagnosis Assessment Notes Treatment Notes Treatment Clinical Notes Dec, Other iron deficiency anemia (IC D-10 - D50.8) Dec,Low folic acid (ICD-10 - E53.8) [facility] Other 09-11-2023 Evaluation note* Encounter Date Diagnosis [...] andcontinue to do the exercises for strength. [facility] Other 07-06-2023 Evaluation note* Encounter Date Diagnosis Assessment Notes Treatment Notes Treatment Clinical Notes Oct, Iron deficiency (ICD-10 - E61.1) [facility] Other 06-26-2023 Evaluation note* Encounter Date Diagnosis [...] symptoms and causing pain down the arm. [facility] Other 06-15-2023 Evaluation note* Encounter Date Diagnosis [...] verbalizes understanding and agrees c tx plan. [facility] Other 05-10-2023 Evaluation note* Encounter Date Diagnosis [...] follow-up if no improvement. She verbalizes understnading. [facility] Other 05-05-2023 Evaluation note* Encounter Date Diagnosis Assessment Notes Treatment Notes Treatment Clinical Notes 05 May, 2023 Acquired hypothyroidism (ICD-10 - E03.9) Discussed with pt symptoms and lab resutls. Discussed treatment and evaluation. Referral placed to Dr. Sinclair. August,Hashimoto's disease (ICD-10 - E06.3) [facility] Other 02-24-2023 Progress note Author Farhad Gallego [facility] June 11, 2022 1:16pmNote Date/TimeFebruary 2022 1:07pm[place] [address] Hospitalist Progress Note Signed Patient: Jaz Sanders MR#: [id number] : 1995 Acct:[id number] Age/Sex: 27 / F Adm Date: 3 Loc: 4N Room: 2B5344-1 Type: ADM IN Attending Dr: Farhad Gallego [...] days. 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 Educated her to go to ED if she continues to have heavy bleeding with symptoms, she verbalized understanding. We will send patient home on iron supplements and docusate as needed for constipation Patient is being discharged today. Documented By: Farhad Gallego MD 06/11/22 1306 Signed By: <Electronically signed by Farhad Gallego MD> 06/11/22 1316 [facility] Work Phone: 1(374) 534-993702-23-2023 History and physical note Author Farhad Gallego [facility] June 10, 2022 6:28pmNote Date/TimeFebruary 2022 5:39pmSturg[place] [address] Hospitalist H&P Signed Patient: Jaz Sanders MR#: [id number] : 1995 Acct:[id number] Age/Sex: 27 / F Adm Date: 3 Loc: Room: [address] [place] [address] Type: ADM INOo Attending Dr: Farhad Gallego MD Copies to: MD Amanda Correa, MEDIATION COMMISSIONER, RADIO OFFICER~ HPI DATE OF EXAMINATION: 06/10/22 CHIEF [...] % (Auto) 41.3 % (.) 06/10/22 14:51 Cannon % (Auto) 6.8 % (.) 06/10/22 14:51 Eos % (Auto) 5.0 % (.) 06/10/22 14:51 Baso % (Auto) 1.8 % (.) 06/10/22 14:51 Nucleat RBC Rel Count 0.1 /100 WBC (0-0.5) 06/10/22 14:51 Neut # (Auto) 2.4 x10E3/uL (1.8-7.7) 06/10/22 14:51 Lymph # (Auto) 2.2 x10E3/uL (1.00-4.8) 06/10/22 14:51 Cannon # (Auto) 0.4 x10E3/uL (0.0-0.8) 06/10/22 14:51 [...] pH 5.5 (5.0-9.0) 06/10/22 15:40 Ur Specific Blythe 1.010 (1.001-1.030) 06/10/22 15:40 Urine Protein Negative [...] <Electronically signed by Farhad Gallego MD> 06/10/22 86[address] [facility] Work Phone: 1(458) 919-742401-04-2023 Evaluation note* Encounter Date Diagnosis Assessment Notes [...] for bleeding. Keep appointment with Dr. Elder. [facility] Other 12-13-2022 Evaluation note* Encounter Date Diagnosis Assessment Notes Treatment Notes Treatment Clinical Notes Mar, Arthritis of shoulder (ICD-10 - M19.019) [facility] Other 12-06-2022 Evaluation note* Encounter Date Diagnosis [...] (ICD-10 - F90.0)[facility] due to she is currently treating her for anxiety and depression. And she has discussed this with Julieta and she had offered her treatement for this. [facility] Other 11-30-2022 Evaluation note* Encounter Date Diagnosis Assessment Notes Treatment Notes Treatment Clinical Notes Feb, Gastroesophageal ref lux disease without esophagitis (ICD-10 - K21.9) [facility] Other 10-24-2022 Evaluation note* Encounter Date Diagnosis [...] to trial the ointment. Follow-up as needed. [facility] Other 05-11-2022 NoteEchocardiology Procedure Exam Date/Time Accession # Ordering Echo Transthoracic 08/25/2021 15:36 EDT [id number] Jay DAVEY, Samir Rivera CPT code 49641 Reason for Exam (Echo Transthoracic Complete) Bradycardia;Other [...] Mariam Salazar MD Transcribed by: kerry Technologist: [facility]04-21-2022 Note Echocardiology Procedure Exam Date/Time Accession # Ordering DrRenae ECG Stress Exercise 08/06/2021 10:22 EDT [id number] Jay DAVEY, Samir Chapman. CPT code 07161 Reason for Exam (ECG Stress Exercise) bradycardia;Other [...] Mariam Salazar MD Transcribed by: nakul Technologist: [facility]03-31-2022 Evaluation note* Encounter Date Diagnosis [...] school on two different occasions.Order faxed to [place]. Jun,Gastroesophageal reflux disease without esophagitis (ICD-10 - [...] a [employer]. Jun,Former smoker (ICD-10 - Z87.891) [facility] [employer] Other Evaluation + Plan note Future Appointments Appointment Date:08/06/2021 09:30:00 AM Scheduled Provider: [facility] Appointment Type:CV Stress (FT) Appointment Date:08/06/2021 11:00:00 AM Scheduled Provider: [facility] Appointment Type:CV Holter/Event (FT) Future Scheduled Tests Radiology* Echo Transthoracic Complete 07/24/21 * ECG Stress Exercise 08/06/21 [facility] HospitalEvaluation + Plan note Future Appointments Appointment Date:08/11/2021 10:30:00 AM Scheduled Provider:Samir Thompson MD [facility] Type:[facility] Future Appointments Appointment Date:09/01/2021 02:30:00 PM Scheduled Provider:Samir Thompson MD [facility] Type:[facility]iology [facility] (FT[facility] Future Appointments Appointment Date:2022 11:15:00 AM Scheduled Provider:Samir Thompson MD [facility] Type:[facility]iology Follow Up (FT[facility] noteNo InformationNortPhoenixville Hospital [employer] Other Evaluation noteNo assessment information available [facility] Work Phone: Evaluation note* Diagnosis Onset Date Resolution Status Anemia acuteAnxiety and depressionacuteBipolar disorderacuteIron deficiency anemiaacute [facility] Work Phone: evaluation note* Diagnosis Onset Date Resolution Status Abdominal pain acuteChillsacuteConstipationacuteFeveracuteH/O gastric sleeveacuteVomitingacute [facility] Work Phone: Evaluation note* Diagnosis Onset Date Resolution Status [id number] acuteLaxity of ligamentacuteMultidirectional instability of glenohumeral joint acuteNumbness of right handacuteOther instability, right shoulderacute [facility] Work Phone: evaluation note* Diagnosis Onset Date Resolution Status [id number]-[id number] acuteLaxity of ligamentacuteMultidirectional instability of glenohumeral joint acuteNumbness of right handacuteOther instability, right shoulderacute RPC-GBMS-[id number] of ligamentacuteMultidirectional instability of glenohumeral jointacuteNumbness of right handacuteOther instability, right shoulderacuteRight carpal tunnel syndromeacute [facility] Work Phone: evaluation note* Diagnosis Onset Date Resolution Status [id number] acuteLaxity of ligamentacuteMultidirectional instability of glenohumeral joint acuteNumbness of right handacuteOther instability, right shoulderacute ZJV-LEFD-[id number] of ligamentacuteMultidirectional instability of glenohumeral jointacuteNumbness of right handacuteOther instability, right shoulderacuteRight carpal tunnel oflvzjasmstfpFNP-OQMF-[id number] of ligamentacuteMultidirectional instability of glenohumeral jointacuteOther instability, right shoulderacuteRight carpal tunnel syndromeacute [facility] Work Phone: evaluation note* Diagnosis Onset Date Resolution Status [id number] acuteLaxity of ligamentacuteMultidirectional instability of glenohumeral joint acuteNumbness of right handacuteOther instability, right shoulderacute UMA-SCDL-[id number] of ligamentacuteMultidirectional instability of glenohumeral jointacuteNumbness of right handacuteOther instability, right shoulderacuteRight carpal tunnel scahzdeltcgicGPL-MJGZ-[id number] of ligamentacuteMultidirectional instability of glenohumeral jointacuteOther instability, right shoulderacuteRight carpal tunnel syndromeacute UZH-LCOU-[id number] of ligamentacuteMultidirectional instability of glenohumeral jointacuteOther instability, right shoulderacuteRight carpal tunnel syndromeacuteStatus post arthroscopy of right shoulderacute [facility] Work Phone: Evaluation note* Diagnosis Onset Date Resolution Status [id number] acuteLaxity of ligamentacuteMultidirectional instability of glenohumeral joint acuteNumbness of right handacuteOther instability, right shoulderacuteRight carpal tunnel cpgnznzonmimuHUA-COUO-[id number] of ligamentacute Multidirectional instability of glenohumeral jointacuteOther instability, right shoulderacuteRight carpal tunnel ddecxhhbxcwrmJRJ-QYSH-[id number] of ligamentacuteMultidirectional instability of glenohumeral jointacuteOther instability, right shoulderacuteRight carpal tunnel syndromeacuteStatus post arthroscopy of right shoulderacuteStatus post surgerynoneactive IEW-KGDL-[id number] of ligamentacuteMultidirectional instability of glenohumeral jointacuteOther instability, right shoulderacuteRight carpal tunnel syndromeacuteStatus post arthroscopy of right shoulderacuteStatus post surgery noneactive [facility] Work Phone: Evaluation note* Diagnosis Well woman exam with routine gynecological exam Routine gynecological examination [facility] 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 [facility] Diagnosis Reproductive mgmt, 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 Special screening examination for infectious diseases Screening examination for unspecified infectious disease Encounter for other genetic testing of female for procreative management documented in this encounter [facility] note* Diagnosis Bipolar 1 disorder (Multi)- Primary Infertility counseling documented in this encounter [facility] Work Phone: Evaluation note* Diagnosis Treatment plan provided- Primary documented in this encounter [facility] note* Diagnosis Reproductive mgmt, 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 documented in this encounter [facility] note* Diagnosis Procreative management- Primary Unspecified procreative management documented in this encounter [facility] note* Diagnosis Female infertility- Primary Female infertility of unspecified origin documented in this encounter [facility] note* Diagnosis Fertility testing- Primary Female infertility Female infertility of unspecified origin documented in this encounter [facility] note* Diagnosis Encounter for fertility planning [Z31.89]- Primary Other specified procreative management documented in this encounter [facility] note* Diagnosis Encounter for artificial insemination- Primary Artificial insemination documented in this encounter [facility] note* Diagnosis 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)- Primary documented in this encounter [facility] note* Diagnosis 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)- Primary documented in this encounter [facility] note* Diagnosis Abnormal thyroid function test- Primary Nonspecific abnormal results of thyroid function study 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 Vitamin D deficiency [facility] Diagnosis 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) [facility] Diagnosis Early stage of (HCC) state, incidental documented in this encounter [facility] note* Diagnosis Amenorrhea Absence of menstruation 9 weeks gestation of Missed menses , unspecified gestational age Encounter for supervision of normal first in first trimester [facility] Diagnosis 13 weeks gestation of (HHS-HCC) Second trimester (HHS-HCC) state, incidental Thyroid disease Unspecified disorder of thyroid H/O gastric sleeve H/O iron deficiency anemia resulting from in vitro fertilization in first trimester (HHS-HCC) [facility] Diagnosis Well woman exam with routine gynecological exam Routine gynecological examination Exposure to STD Second trimester ([facility]) state, incidental 18 weeks gestation of ([facility]) Need for maternal serum alpha-protein (MSAFP) screening ([facility]) Screening, , for anatomic survey ([facility]) Encounter for anatomic survey Thyroid disease Unspecified disorder of thyroid [facility] Diagnosis Previous gastric bypass affecting , antepartum- Primary Hypothyroidism affecting in second trimester 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 ([facility]) Obesity affecting in second trimester, unspecified obesity type Encounter for supervision of resulting from assisted reproductive technology, antepartum documented in this encounter [facility]* Diagnosis 20 weeks gestation of - Primary Previous gastric bypass affecting , antepartum Obesity affecting in second trimester, unspecified obesity type Hypothyroidism affecting in second trimester 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 ([facility]) headache in second trimester documented in this encounter [facility]* Diagnosis 22 weeks gestation of ([facility]) Second trimester ([facility]) state, incidental Thyroid disease Unspecified disorder of thyroid H/O gastric sleeve H/O iron deficiency anemia Diabetes mellitus screening Screening for diabetes mellitus [facility]* Diagnosis Previous gastric bypass affecting , antepartum- Primary Hypothyroidism affecting in second trimester 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 ([facility]) Obesity affecting in second trimester, unspecified obesity type documented in this [facility]* Diagnosis 26 weeks gestation of ([facility]) Second trimester ([facility]) state, incidental TSH (thyroid-stimulating hormone deficiency) Other specified acquired hypothyroidism documented [facility]* Diagnosis Third trimester ([facility]) state, incidental 29 weeks gestation of ([facility]) documented [facility]* Diagnosis Hypothyroidism affecting in second trimester- Primary headache in second trimester Previous gastric bypass affecting , antepartum 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 ([facility]) documented in this encounter [facility] SystemHistory general Narrative - Reported* Type Description Date Surgical History cholecystectomy 2014 Surgical History gastric sleeve 2020 [facility] Other History general Narrative - Reported* Type Description Date Medical History Hypothyroidism Medical HistoryMNGMedical HistoryenuresisMedical Historyextreme obesityMedical HistoryGERD with esophagitisMedical HistoryheadacheMedical HistoryGoiter, nontoxic, multinodularMedical HistoryVitamin D deficiencySurgical History bbybpwzmsfvkoqb4426Jyrlnong Lyfqnirhksalpswyucbkkh9100Mffcukkk Historygastric bzarmt0465Dmagmvawncxaqlt HistoryAnemia05/2022 [facility] Other Hospital course Narrative No data available for this section [facility] Discharge instructions No data available for this section [facility] Discharge instructions Additional Instructions POSTOPERATIVE INSTRUCTIONS FOR SHOULDER LABRAL REPAIR Romeo Santana DO Orthopedic Surgeon [facility] GENERAL INSTRUCTIONS: Use ice packs to [...] office immediately. Romeo Santana DO Orthopedic Surgeon [facility] Office: [address] [place] [address] Office number: [phone] [facility] Work Phone: Hospital Discharge instructionsAmbulatory Orders* Referral to Allergy/Immunology Time Frame: 04/26/24, Location: None Selected [facility] Work Phone: Hospital Discharge instructions Additional Instructions We evaluated you for your vaginal bleeding in . Your ultrasound was normal, the baby has a good heart rate, measuring at 13 weeks and 1 day. Your cervix was closed. Follow-up closely with your DIGITAL MARKETING ASSOCIATE. Return to the emergency department if you develop any worsening or concerning symptoms.[facility] Work Phone: InstructionsNot on filedocumented in this encounter [facility] SystemInstructionsNot on filedocumented in this encounter [facility] SystemInstructions* Attachments The following attachments cannot be sent through Care Everywhere. * Preeclampsia (Ukrainian) documented in this encounterProMediStylewhile SystemInstructionsNot on file documented in this encounterProK[facility] SystemInstructionsNot on file documented in this encounterProKettering [facility] SystemReason for referral (narrative)No reason for referral information availableSouthern [facility] Work Phone: Reason for visit Narrative* Consult, Test, Treat (Routine) - ClosedSpecialtyDiagnoses / ProceduresReferred By ContactReferred To ContactREPRODUCTIVE ENDOCRINOLOGY & FERTILITY Diagnoses Encounter for procreative management, unspecified Encounter for other procreative management Procedures ARTIFIC INSEMINATION INTRAUTERIN THAWING CRYOPRESERVED SPERM/SEMEN EACH ALIQUOT Daniel Hanna, MELY.RADIO OFFICER [address] [place] [address] Phone: tel: fax: Reproductive Endocrinology Infertility [address] [place] [id number] Phone: tel: Referral IDStatusReasonStart DateExpiration DateVisits RequestedVisits [id number] Financial Clearance Required - Self Pay Patient Cleared - True Self-Pay required payment collected Do Not Bill Insurance - SP patient / [facility] for visit Narrative* Diagnostic Procedure Only (Routine) - AuthorizedSpecialtyDiagnoses / ProceduresReferred By ContactReferred To [facility] Diagnoses Fertility testing Procedures PELVIC US WHI US PELVIC NONOBSTETRIC REAL-TIME IMAGE COMPLETE Ignacio Guy MD [address] [place] [address] Phone: tel: fax: [facility] [address] [place] [address] Referral IDStatusReasonStart DateExpiration DateVisits RequestedVisits [id number] Auto-Generated Referral Patient Cleared - True Self-Pay required payment collected Do Not Bill Insurance - SP patient / [facility] for visit Narrative* Consult, Test, Treat (Routine) - ClosedSpecialtyDiagnoses / ProceduresReferred By ContactReferred To Contact REPRODUCTIVE ENDOCRINOLOGY & FERTILITY Diagnoses Encounter for procreative management, unspecified Encounter for other procreative management Procedures THAWING CRYOPRESERVED SPERM/SEMEN EACH ALIQUOT ARTIFIC INSEMINATION INTRAUTERIN Daniel Hanna, MELY.RADIO OFFICER [address] [place] [id number] Phone: tel: fax: Reproductive Endocrinology Infertility [address] [place] [address] Phone: tel: Referral IDStatusReasonStart DateExpiration DateVisits RequestedVisits [id number] Patient Cleared - True Self-Pay required payment collected Do Not Bill Insurance - SP patient / [facility] for visit Narrative* Financial Clearance (Routine) - ClosedSpecialtyDiagnoses / ProceduresReferred By ContactReferred To Contact FINANCE Diagnoses Collect for IUI-D washed sample Procedures THAWING CRYOPRESERVED SPERM/SEMEN EACH ALIQUOT ARTIFIC INSEMINATION INTRAUTERIN FINANCIAL CLEARANCE PHONE CALL Self Financial Clearance Phone [place] [address] Referral IDStatusReasonStart DateExpiration DateVisits RequestedVisits [id number] Financial Clearance Required - Self Pay Patient Cleared - True Self-Pay required payment collected Do Not Bill Insurance - SP patient / [facility] for visit Narrative* Diagnostic Procedure Only (Routine) - ClosedSpecialtyDiagnoses / ProceduresReferred By ContactReferred To Contact [facility] Diagnoses 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) Procedures OBSTETRIC ULTRASOUND WHI US PREG UTERUS AFTER 1ST TRIMEST 1 GESTATION Melodie Hernandez MEDIATION COMMISSIONER.RADIO OFFICER [address] [place] [id number] Phone: tel: fax: [facility] [address] [place] [address] Referral IDStatusReasonStart DateExpiration DateVisits RequestedVisits [id number] Auto-Generated Referral / [facility] for visit Narrative* Diagnostic Procedure Only (Routine) - ClosedSpecialtyDiagnoses / ProceduresReferred By ContactReferred To Contact [facility] Diagnoses Early stage of (HCC) Procedures OBSTETRIC ULTRASOUND WHI US PREG UTERUS AFTER 1ST TRIMEST GESTATION Melodie Hernandez APRN.RADIO OFFICER [address] [place] [address] Phone: tel: fax: [facility] [address] [place] [address] Referral IDStatusReasonStart DateExpiration DateVisits RequestedVisits [id number] Auto-Generated Referral / [facility] Advance Directives TypeDate RecordedPatient RepresentativeExplanationACP-Advance DirectiveACP-Power of AttorneyTypeDate RecordedPatient [...] drive you home after your procedure. Your stud driver must be 18 years of age [...] questions, call the Pre-Admission Testing Unit at [phone]. Day of Surgery/Procedure As a patient at [facility] you can expect quality medical and nursing care that is centered on your individual needs. Our goal is to make your surgical experience as comfortableas possible . Directions to the Surgery Center [facility] is located at [address] [place] [address]. Please pull into the Emergency parking lot and stop at the splicer operator dotson. We offer free splicer operator service for all our surgery patients, if you choose not to have splicer operator parking we have additional parking across the street.You will enter the facility following the [facility] sign. Please stop at the reception centre manager desk where you will be checked in by the staff. If you have any questions please call [phone]. Transportation after your procedure. You will need a friend or family member to drive you home after your procedure. Your stud driver must be18 years of age or [...] may shave your face or neck. ? [place] your teeth but do not swallow water. [...] or the day of surgery, please call [phone], or [phone] documented in this encounter* Instructions* Mukesh Montez A, - 05/06/2020 Rectus Block Instructions What is [...] 48 hours call the anesthesia department at [phone]. Will you need pain medication? The nerve [...] block please phone the Anesthesiology Department at [phone]. If the phone does not get answered please contact the hospital linecasting machine keyboard operator at [phone] to page the head of store operations anesthesiologist Discharge Instructions for Bariatric Surgery You had a Laparoscopic Sleeve Gastrectomy (84910) surgery to treat obesity. Recovery from this [...] scheduled appointment, please call the office at [phone]. Call Your Doctor If Any of the [...] AM EST CLINICAL PHARMACY NOTE: MEDS TO [facility] Patient?: No Total # of Prescriptions Filled: 3 The following medications were delivered to the patient: Oxycodone-acetaminophen 5/325 mg tab Cyclobenzaprine 10 mg tab Enoxaparin 60mg /0.6 ml syr Total # of Interventions Completed: 1 Time Spent (min): 60 Additional Documentation:called residential case manager about the high co-pay on [...] Intake/Output Summary (Last 24 hours) at 05/07/2020 06 Last data filed at 05/06/2020 2359 [address] [...] Cook RN - 05/06/2020 10:49 AM EST [phone] Dr Cohen to the bedside, time out [...] SHOULDER DI SCUSS SURGERY Reason for Visit [id number] Laxity of ligament Multidirectional instability of glenohumeral joint Numbness of right hand Other instability, right shoulder Chief Complaint OP SP RT SHOULDER DI SCUSS SURGERY R20.0Reason for OxydeTNE-MDSQ-[id number] Laxity of ligament Multidirectional instability of glenohumeral joint Numbness of right hand Other instability, right shoulder Chief Complaint OP SP RT SHOULDER DI SCUSS SURGERY R20.0 EMG RESULTSReason for SxfifYQD-VCKF-[id number] Laxity of ligament Multidirectional instability of glenohumeral joint Numbness of right hand Other instability, right shoulder NFN-DMJH-[id number] Laxity of ligament Multidirectional instability of glenohumeral joint Numbness of right hand Other instability, right shoulder Right carpal tunnel syndrome Chief Complaint OP SP RT SHOULDER DI SCUSS SURGERY R20.0 EMG RESULTS Shoulder painReason for MnfwoUIW-JMQV-[id number] Laxity of ligament Multidirectional instability of glenohumeral joint Numbness of right hand Other instability, right shoulder WFE-[id number] Laxity of ligament Multidirectional instability of glenohumeral joint Numbness of right hand Other instability, right shoulder Right carpal tunnel syndrome Chief Complaint OP SP RT SHOULDER DI SCUSS SURGERY R20.0 EMG RESULTS Shoulder pain H & P RIGHT SHOULDER ARTHROSCOPY 24-41-88Kjqgty for OxzikNIW-TAMA-[id number] Laxity of ligament Multidirectional instability of glenohumeral joint Numbness of right hand Other instability, right shoulder MJU-DHVD-[id number] Laxity of ligament Multidirectional instability of glenohumeral joint Numbness of right hand Other instability, right shoulder Right carpal tunnel syndrome PZP-[id number] Laxity of ligament Multidirectional instability of glenohumeral joint Other instability, right shoulder Right carpal tunnel syndrome Chief Complaint OP SP RT SHOULDER DI SCUSS SURGERY R20.0 EMG RESULTS Shoulder pain H & P RIGHT SHOULDER ARTHROSCOPY 12-07-23 Shoulder pain Shoulder painReason for YgurgXRR-XVOL-[id number] Laxity of ligament Multidirectional instability of glenohumeral joint Numbness of right hand Other instability, right shoulder DAE-MAHX-[id number] Laxity of ligament Multidirectional instability of glenohumeral joint Numbness of right hand Other instability, right shoulder Right carpal tunnel syndrome KYP-XTSS-[id number] Laxity of ligament Multidirectional instability of glenohumeral joint Other instability, right shoulder Right carpal tunnel syndrome Chief Complaint OP SP RT SHOULDER DI SCUSS SURGERY R20.0 EMG RESULTS Shoulder pain H & P RIGHT SHOULDER ARTHROSCOPY 12-07-23 Shoulder pain Shoulder pain 10-14 DAYS POST OPReason for NxvlmKMA-IXBR-[id number] Laxity of ligament Multidirectional instability of glenohumeral joint Numbness of right hand Other instability, right shoulder SKV-[id number] Laxity of ligament Multidirectional instability of glenohumeral joint Numbness of right hand Other instability, right shoulder Right carpal tunnel syndrome OCZ-HRKF-[id number] Laxity of ligament Multidirectional instability of glenohumeral joint Other instability, right shoulder Right carpal tunnel syndrome LML-[id number] Laxity of ligament Multidirectional instability of glenohumeral joint Other instability, right shoulder Right carpal tunnel syndrome Status post arthroscopy of right shoulder Chief Complaint R20.0 EMG RESULTS Shoulder pain H & P RIGHT SHOULDER ARTHROSCOPY 12-07-23 Shoulder pain Shoulder pain 10-14 DAYS POST OP R20.0 4 WEEKSReason for [id number] Laxity of ligament Multidirectional instability of glenohumeral joint Numbness of right hand Other instability, right shoulder Right carpal tunnel syndrome [id number] Laxity of ligament Multidirectional instability of glenohumeral joint Other instability, right shoulder Right carpal tunnel syndrome [id number] Laxity of ligament Multidirectional instability of glenohumeral joint Other instability, right shoulder Right carpal tunnel syndrome Status post arthroscopy of right shoulder Status post surgery [id number] Laxity of ligament Multidirectional instability of glenohumeral [...] for Visit Admit Date Degenerative superior labral exginiqb-sl-ovnmjpvlz (SLAP) tear of right matthias December 20, 2023 10:11am Laxity of ligament December 20, 2023 10:11am Multidirectional instability of glenohum eral joint December 20, 2023 10:11am Other instability, right shoulder Septem 2023 10:11am Right carpal tunnel syndrome December 192023 10:11am Status post arthroscopy of right shoulde r December 20, 2023 10:11am Status post surgery December 20, 2023 10:11am Degenerative superior labral qdowemfx-ya-jwfzlmjtj (SLAP) tear of right matthias January 17, 2024 11:58am Laxity of ligament January 17, 2024 11 :58am Multidirectional instability of glenohum eral joint January 17, 2024 11:58am Other instability, right shoulder Octobe 2023 11:58am Right carpal tunnel syndrome January 11:58am Status post arthroscopy of right shoulde r January 17, 2024 11:58am Status post surgery January 17, 2024 11 :58am Degenerative superior labral mdvnwsyk-lb-ogszembte (SLAP) tear of right matthias February 27, [...] for Visit Admit Date Degenerative superior labral ppcsymrd-ki-ghfumulmm (SLAP) tear of right matthias February 27, 2024 2:25pm Laxity of ligament February 27, 2024 2:25pm Multidirectional instability of glenohum eral joint February 27, 2024 2:25pm Other instability, right shoulder Novemb er 2023 2:25pm Right carpal tunnel syndrome February 262023 2:25pm Status post arthroscopy of right shoulde r February 27, 2024 2:25pm Status post surgery February 27, 2024 2:25pm Degenerative superior labral ncysadiq-nx-hhqdviuma (SLAP) tear of right matthias April 23, [...] for Visit Admit Date Degenerative superior labral wlootubr-lq-zpjfmdjkm (SLAP) tear of right matthias February 27, 2024 2:25pm Laxity of ligament February 27, 2024 2:25pm Multidirectional instability of glenohum eral joint February 27, 2024 2:25pm Other instability, right shoulder Novemb er 2023 2:25pm Right carpal tunnel syndrome February 262023 2:25pm Status post arthroscopy of right shoulde r February 27, 2024 2:25pm Status post surgery February 27, 2024 2:25pm Degenerative superior labral yntsgtbp-eh-ciwqxhsor (SLAP) tear of right matthias April 23, [...] therapy exercises and steroid injection, MRI at [facility], Dr. 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) Referral Organization [facility] [place] Referring Provider First Name Amanda Referring Provider Last Name Logan Referring Provider Specialty Nurse Pract isabel Referred Organization [employer] Referred Provider Darleen Sinclair Referred Address [address],[place],[address] Referred Provider Specialty Endocrinolog y Referral Priority Routine General Notes Chelsi Avalos 023 11:26:34 AM >Received today and waiting for office notes to be locked before sending referral Additional Source Comments Reason for Visit (unrecogniz ed section and content) StatusReasonSpecialtyDiagnoses / ProceduresReferred By ContactReferred To Contact Diagnoses Morbid obesity (HCC) MORBID OBESITY, HYPOTHYROID Procedures MA LAP GASTRIC BYPASS/BEN-EN-Y XI LAPAROSCOPIC ROBOTIC GASTRIC BYPASS BEN-EN-Y, LIVER BIOPSY, EGD- GI UNIT SCHEDULED. Rashard Olivera, [address] [place] [address] [facility] ReasonCommentsGynecologic ExamReasonCommentsInfertilitySpecialtyDiagnoses / ProceduresReferred By ContactReferred To ContactREPRODUCTIVE ENDOCRINOLOGY & FERTILITY Diagnoses Female infertility, unspecified Procedures VV OFFICE/OP CONSLTJ NEW/EST PT MOD MDM 40 MINUTES Pcp, No, MEDIATION COMMISSIONER Whi [facility] [address] [place] [address] Referral IDStatusReasonStart DateExpiration DateVisits RequestedVisits [id number] Financial Clearance Required - Self Pay Patient Cleared - True Self-Pay required payment collected Do Not Bill Insurance - SP patient Financial Clearance Not Required [id number] sperm teachSpecialtyDiagnoses / ProceduresReferred By ContactReferred To ContactREPRODUCTIVE ENDOCRINOLOGY & FERTILITY Diagnoses Infertility counseling Procedures OFFICE/OUTPATIENT ESTABLISHED MOD MDM 30 MIN Melodie Hernandez G, MEDIATION COMMISSIONER.RADIO OFFICER [address] [place] [address] [facility] [address] [place] [id number] Referral IDStatusReasonStart DateExpiration DateVisits RequestedVisits [id number] Financial Clearance Required - Self Pay Patient Cleared - True Self-Pay required payment collected Do Not Bill Insurance - SP patient /[id number] / ProceduresReferred By ContactReferred To ContactREPRODUCTIVE ENDOCRINOLOGY & FERTILITY Diagnoses Encounter for fertility testing Procedures OFFICE/OUTPATIENT ESTABLISHED LOW MDM 20 MIN [facility] [employer] [address] [place] [address] Whi Jamel [facility] [address] [place] [address] Referral IDStatusReasonStart DateExpiration DateVisits RequestedVisits [id number] Financial Clearance Required - Self Pay Patient Cleared - True Self-Pay required payment collected Do Not Bill Insurance - SP patient /[id number] PlanningReasonCommentsre iui this wknd/has cervical polyp questionReasonCommentsPatient [...] section and content) DATE CREATED AUTHOR 05/08/2020 [facility] DATE CREATED AUTHOR AUTHOR'S ORGANIZ ATION 03/31/2021 [facility] DATE CREATED AUTHOR AUTHOR'S ORGANIZ ATION 09/04/2021 [facility] DATE CREATED AUTHOR AUTHOR'S ORGANIZ ATION 04/19/2024 [facility] DATE CREATED AUTHOR AUTHOR'S ORGANIZ ATION 05/05/2024 [facility] DATE CREATED AUTHOR AUTHOR'S ORGANIZ ATION 09/12/2024 [facility] DATE CREATED AUTHOR AUTHOR'S ORGANIZ ATION 10/05/2024 [facility] DATE CREATED AUTHOR AUTHOR'S ORGANIZ ATION 12/07/2024 [facility] DATE CREATED AUTHOR AUTHOR'S ORGANIZ ATION 12/07/2024 [facility] DATE CREATED AUTHOR AUTHOR'S ORGANIZ ATION 02/08/2025 [facility] DATE CREATED AUTHOR AUTHOR'S ORGANIZ ATION 02/08/2025 [facility] Care Teams (unrecognized sec tion and content) Team Status: Inactive Member Role Status Dates Mariam Appiah MD Primary Care Provider Active MELY Flores ProviderActive Team Status: Inactive Member Role Status Dates Amanda Ford APRN MANAGER PAPER-C Primary Care Provider Active Dariel Howell ProviderActive Team Status: Inactive Member Role Status Dates Amanda Ford APRN MANAGER PAPER-C Primary Care Provider Active Michelle Zhang ProviderActive Team Status: Active Member Role Status Dates Amanda Ford APRN MANAGER PAPER-C Primary Care Provider Active Team Status: Inactive Member Role Status Dates Amanda Ford APRN MANAGER PAPER-C Primary Care Provider, Attending Provider Active Team Status: Active Member Role Status Dates Amanda Ford APRN MANAGER PAPER-C Primary Care Provider Active Dariel Howell ProviderActiveAnoop Lashonda , MDAdmit Provider, Attending ProviderActive Team Status: Inactive Member Role Status Dates Amanda Ford APRN MANAGER PAPER-C Primary Care Provider Active Dariel Howell ProviderActiveAnoShannon Merchant Provider, Attending ProviderActive Team Status: Inactive Member Role Status Dates Amanda Ford APRN MANAGER PAPER-C Primary Care Provider Active Silva Greco ProviderActive Team Status: Inactive Member Role Status Dates Provider Conversion Attending Provider Active St art: May 17, 2023 End: May 17, 2023 Team Status: Inactive Member Role Status Dates Amanda Ford APRN MANAGER PAPER-C Primary Care Provider, Attending Provider Active Start: June 08, 2023 End: June 08, 2023 Team Status: Active Member Role Status Dates Amanda Ford APRN MANAGER PAPER-C Primary Care Provider, Attending Provider Active Start: September 15, 2023 Team Status: Inactive Member Role Status Dates Amanda Ford APRN MANAGER PAPER-C Primary Care Provider Active Start: October 13, 2023 End: October 13, 2023Romeo Santana DOAttending ProviderActiveStart: October 13, 2023 End: October 13, 2023 Team Status: Inactive Member Role Status Dates Amanda Ford APRN MANAGER PAPER-C Primary Care Provider Active Start: October 26, 2023 End: October 26, 2023Romeo Santana DOAttending ProviderActiveStart: October 26, 2023 End: October 26, 2023 Team Status: Inactive Member Role Status Dates Amanda Ford APRN MANAGER PAPER-C Primary Care Provider Active Start: November 01, 2023 End: November 01, 2023Romeo Santana DOAttending ProviderActiveStart: November 01, 2023 End: November 01, 2023 Team Status: Inactive Member Role Status Dates Amanda Ford APRN MANAGER PAPER-C Primary Care Provider Active Start: November 28, 2023 End: November 28, 2023Romeo Santana DOAttending ProviderActiveStart: November 28, 2023 End: November 28, 2023 Team Status: Inactive Member Role Status Dates Amanda Ford APRN MANAGER PAPER-C Primary Care Provider Active Start: December 01, 2023 End: December 01, 2023Romeo Santana DOAttending ProviderActiveStart: December 01, 2023 End: December 01, 2023 Team Status: Inactive Member Role Status Dates Amanda Ford APRN MANAGER PAPER-C Primary Care Provider Active Start: December 07, 2023 End: December 07, 2023Romeo Santana , DOAttending ProviderActiveStart: December 07, 2023 End: December 07, 2023 Team Status: Active Member Role Status Dates Amanda Ford APRN MANAGER PAPER-C Primary Care Provider Active Start: December 07, 2023 Romeo Santana DOAttending Provider, Other ProviderActiveStart: December 07, 2023 Team Status: Inactive Member Role Status Dates Amanda Ford APRN MANAGER PAPER-C Primary Care Provider Active Start: December 192023 End: December 20, 2023Romeo Santana , DOAttending ProviderActiveStart: December 20, 2023 End: December 20, 2023 Team Status: Active Member Role Status Dates Amanda Ford APRN MANAGER PAPER-C Primary Care Provider Active Start: December 182023 Romeo Santana , DOOther ProviderActiveStart: January 10, 2024 Daniel Hampton MDAttending ProviderActiveStart: January 10, 2024 Team Status: Inactive Member Role Status Dates Amanda Ford APRN MANAGER PAPER-C Primary Care Provider Active Start: January 17, 2024 End: January 17, 2024Romeo Santana , DOAttending ProviderActiveStart: January 17, 2024 End: January 17, 2024Team MemberRelationshipSpecialtyStart DateEnd Date Amanda Ford MANAGER PAPER [address] [place] [address] PCP - [facility] Jckeiuko89/2/23Team MemberRelationshipSpecialtyStart DateEnd Date Amanda Ford MANAGER PAPER [address] [place] [address] [facility] Kvcuwuik99/2/23 Team Status: Inactive Member Role Status Dates Amanda Ford APRN MANAGER PAPER-C Primary Care Provider Active Start: February 262023 End: February 27, 2024Kenny Gary ProviderActiveStart: February 27, 2024 End: February 27, 2024Team MemberRelationshipSpecialtyStart DateEnd Date Amanda Ford NP PCP - GeneralFamily Ikfbaptv36/2/23 Team Status: Active Member Role Status Dates Amanda Ford APRN MANAGER PAPER-C Primary Care Provider Active Start: February Kenny Gallegos ProviderActiveStart: February 20, 2024 Team Status: Inactive Member Role Status Dates Amanda Ford APRN MANAGER PAPER-C Primary Care Provider Active Start: April 23, 2024 End: April 23, 2024Kenny Gary ProviderActiveStart: April 23, 2024 End: April 23, 2024 Team Status: Inactive Member Role Status Dates Amanda Ford APRN MANAGER PAPER-C Primary Care Provider, Attending Provider Active Start: April 26, 2024 End: April 26, 2024Team MemberRelationshipSpecialtyStart DateEnd Date Amanda Ford NP [address] [place] [address] PCP - [facility] Vzuystmp30/2/23Team MemberRelationshipSpecialtyStart DateEnd Date Amanda Ford NP [address] [place] [address] [facility] Xgydlcmd11/2/23Team MemberRelationshipSpecialtyStart DateEnd Date Amanda Ford NP [address] [place] [address] PCP - Generalmily Ozxzdicf35/2/23Team MemberRelationshipSpecialtyStart DateEnd Date Amanda Ford NP [address] [place] [address] PCP - GeneralFamily Lagclxnu62/2/23 Team Status: Inactive Member Role Status Dates Amanda Ford APRN MANAGER PAPER-C Primary Care Provider Active Start: October 18, 2024 End: October 18Michelle Bonilla ProviderActiveStart: October 18, 2024 End: October 18, 2024Team MemberRelationshipSpecialtyStart DateEnd Date Amanda Ford NP [address] [place] [address] PCP - GeneralFamily Ohvnvpxm15/2/23Team MemberRelationshipSpecialtyStart DateEnd Date No Pcp, [place] [address] PCP - GeneralFamily Medicine05/20/20Team MemberRelationshipSpecialtyStart DateEnd Date No Pcp, [place] [address] PCP - GeneralFamily Medicine05/20/20Team MemberRelationshipSpecialtyStart DateEnd Date Amanda Ford NP [address] [place] [address] PCP - GeneralFamily Myqwrzwk28/2/23Team MemberRelationshipSpecialtyStart DateEnd Date Amanda Ford NP [address] [place] [address] PCP - GeneralFamily Wbbbujuy83/2/23Team MemberRelationshipSpecialtyStart DateEnd Date Amanda Ford NP [address] [place] [address] PCP - GeneralFamily Cqxaeapm61/2/23 Team Status: Active Member Role Status Dates Amanda Ford APRN MANAGER PAPER-C Primary Care Provider Active Start: November 17, 2024 Chris Dickerson DOAttending ProviderActiveStart: November 17, 2024 Team Status: Active Member Role Status Dates Amanda Ford APRN MANAGER PAPER-C Primary Care Provider Active Start: November 20, 2024 Les Martinez DOAttending ProviderActiveStart: November 20, 2024 Team Status: Active Member Role Status Dates Amanda Ford APRN MANAGER PAPER-C Primary Care Provider Active Start: November 30, 2024 Chris Dickerson DOAttending ProviderActiveStart: November 30, 2024 Team Status: Inactive Member Role Status Dates Chris Dickerson DO Attending Provider Active S tart: November 30, 2024 End: November 30, 2024 Team Status: Active Member Role Status Dates Elizabeth Osborne NP-C Attending Provider Active S tart: December 01, 2024 Team Status: Inactive Member Role Status Dates Amanda Ford APRN MANAGER PAPER-C Primary Care Provider Active Start: December 02, 2024 End: December 03, 2024Eduardo Cruz DOAttending ProviderActiveStart: December 02, 2024 End: December 03, 2024Team MemberRelationshipSpecialtyStart DateEnd Date No Pcp, [place] [address] PCP - GeneralFamily Medicine05/20/20Team MemberRelationshipSpecialtyStart DateEnd Date No Pcp, [place] [address] PCP - GeneralFamily Medicine05/20/20Team MemberRelationshipSpecialtyStart DateEnd Date Amanda Ford NP [address] [place] [address] PCP - GeneralFamily Zmshscsz18/2/23Team MemberRelationshipSpecialtyStart DateEnd Date No Pcp, [place] [address] [facility]05/20/20Team MemberRelationshipSpecialtyStart DateEnd Date No Pcp, [place] [address] PCP - GeneralFamily Medicine05/20/20Team MemberRelationshipSpecialtyStart DateEnd Date Amanda Ford NP [address] [place] [address] [address] [place] [address] [facility] - [facility]/23Team MemberRelationshipSpecialtyStart DateEnd Date Aamnda Ford NP [address] [place] [address] [place] [address] PCP - [facility]01/17/23Team MemberRelationshipSpecialtyStart DateEnd Date Amanda Ford NP [address] [place] [address] [place] [address] PCP - [facility]01/17/23 Goals (unrecognized section and content) Type Treatment [...] any alcohol or drug abuse patient.[facility] CenterIn the event this information is protected by the Federal Confidentiality of Alcohol and Drug Abuse Patient Records regulations: The Federal rules restrict any use of the information to criminally investigate or prosecute any alcohol or drug abuse patient.[facility] CenterIn the event this information is protected by the Federal Confidentiality of Alcohol and Drug Abuse Patient Records regulations: The Federal rules restrict any use of the information to criminally investigate or prosecute any alcohol or drug abuse patient.[facility] CenterIn the event this information is protected by the Federal Confidentiality of Alcohol and Drug Abuse Patient Records regulations: The Federal rules restrict any use of the information to criminally investigate or prosecute any alcohol or drug abuse patient.[facility] CenterIn the event this information is protected by the Federal Confidentiality of Alcohol and Drug Abuse Patient Records regulations: The Federal rules restrict any use of the information to criminally investigate or prosecute any alcohol or drug abuse patient.[facility] CenterIn the event this information is protected by the Federal Confidentiality of Alcohol and Drug Abuse Patient Records regulations: The Federal rules restrict any use of the information to criminally investigate or prosecute any alcohol or drug abuse patient.[facility] CenterIn the event this information is protected by the Federal Confidentiality of Alcohol and Drug Abuse Patient Records regulations: The Federal rules restrict any use of the information to criminally investigate or prosecute any alcohol or drug abuse patient.[facility] CenterIn the event this information is protected by the Federal Confidentiality of Alcohol and Drug Abuse Patient Records regulations: The Federal rules restrict any use of the information to criminally investigate or prosecute any alcohol or drug abuse patient.[facility] CenterIn the event this information is protected by the Federal Confidentiality of Alcohol and Drug Abuse Patient Records regulations: The Federal rules restrict any use of the information to criminally investigate or prosecute any alcohol or drug abuse patient.[facility] CenterIn the event this information is protected by the Federal Confidentiality of Alcohol and Drug Abuse Patient Records regulations: The Federal rules restrict any use of the information to criminally investigate or prosecute any alcohol or drug abuse patient.[facility] CenterIn the event this information is protected by the Federal Confidentiality of Alcohol and Drug Abuse Patient Records regulations: The Federal rules restrict any use of the information to criminally investigate or prosecute any alcohol or drug abuse patient.[facility] CenterIn the event this information is protected by the Federal Confidentiality of Alcohol and Drug Abuse Patient Records regulations: The Federal rules restrict any use of the information to criminally investigate or prosecute any alcohol or drug abuse patient.[facility] CenterIn the event this information is protected by the Federal Confidentiality of Alcohol and Drug Abuse Patient Records regulations: The Federal rules restrict any use of the information to criminally investigate or prosecute any alcohol or drug abuse patient.[facility] CenterIn the event this information is protected by the Federal Confidentiality of Alcohol and Drug Abuse Patient Records regulations: The Federal rules restrict any use of the information to criminally investigate or prosecute any alcohol or drug abuse patient.[facility] the event this information is protected by the Federal Confidentiality of Alcohol and Drug Abuse Patient Records regulations: The Federal rules restrict any use of the information to criminally investigate or prosecute any alcohol or drug abuse patient.[facility] CenterIn the event this information is protected by the Federal Confidentiality of Alcohol and Drug Abuse Patient Records regulations: The Federal rules restrict any use of the information to criminally investigate or prosecute any alcohol or drug abuse patient.[facility] CenterIn the event this information is protected by the Federal Confidentiality of Alcohol and Drug Abuse Patient Records regulations: The Federal rules restrict any use of the information to criminally investigate or prosecute any alcohol or drug abuse patient.[facility] ClinicIn the event this information is protected by the Federal Confidentiality of Alcohol and Drug Abuse Patient Records regulations: The Federal rules restrict any use of the information to criminally investigate or prosecute any alcohol or drug abuse patient.[facility] CenterIn the event this information is protected by the Federal Confidentiality of Alcohol and Drug Abuse Patient Records regulations: The Federal rules restrict any use of the information to criminally investigate or prosecute any alcohol or drug abuse patient.[facility] CenterIn the event this information is protected by the Federal Confidentiality of Alcohol and Drug Abuse Patient Records regulations: The Federal rules restrict any use of the information to criminally investigate or prosecute any alcohol or drug abuse patient.[facility] CenterIn the event this information is protected by the Federal Confidentiality of Alcohol and Drug Abuse Patient Records regulations: The Federal rules restrict any use of the information to criminally investigate or prosecute any alcohol or drug abuse patient.[facility] CenterIn the event this information is protected by the Federal Confidentiality of Alcohol and Drug Abuse Patient Records regulations: The Federal rules restrict any use of the information to criminally investigate or prosecute any alcohol or drug abuse patient.[facility] CenterIn the event this information is protected by the Federal Confidentiality of Alcohol and Drug Abuse Patient Records regulations: The Federal rules restrict any use of the information to criminally investigate or prosecute any alcohol or drug abuse patient.[facility] CenterIn the event this information is protected by the Federal Confidentiality of Alcohol and Drug Abuse Patient Records regulations: The Federal rules restrict any use of the information to criminally investigate or prosecute any alcohol or drug abuse patient.[facility] CenterIn the event this information is protected by the Federal Confidentiality of Alcohol and Drug Abuse Patient Records regulations: The Federal rules restrict any use of the information to criminally investigate or prosecute any alcohol or drug abuse patient.[facility] CenterIn the event this information is protected by the Federal Confidentiality of Alcohol and Drug Abuse Patient Records regulations: The Federal rules restrict any use of the information to criminally investigate or prosecute any alcohol or drug abuse patient.[facility] CenterIn the event this information is protected by the Federal Confidentiality of Alcohol and Drug Abuse Patient Records regulations: The Federal rules restrict any use of the information to criminally investigate or prosecute any alcohol or drug abuse patient.[facility] FOR RECORDS PERTAINING TO PATIENTS [...] BE BASED ON THE PRIMARY CLINICAL RECORDS. [facility]. provides no warranty or guarantee of the accuracy or completeness of information in this document.
[2025-02-19 15:20] LABS: Thyroid Stimulating Hormone 1.347 uIU/mL (0.358-3.740)
== END 2025-02-19 14:06 | disposition home or self-care (01) ==
LOC: LAB 14:07
PROVIDERS: PCP Nurse Practitioner Family; Visit Provider Obstetrics & Gynecology
DX: E07.9 Disorder of thyroid, unspecified (principal)
CPT/HCPCS: 36415; 84443

== ENCOUNTER 2025-02-25 13:56 | Outpatient (OUT) | payer MEDICAID, SELFPAY ==
--- OUTSIDE RECORDS SUMMARY | 2025-01-16 10:20 | XMS_ITS | Encounter Summary ---
Author Organization [facility] Address [address] [place] [address] Care Team Providers Care Emergency Medical Technician Name Role Phone Amanda Ford SERVICE CAR DRIVER Primary Care Provider Reason for Visit * ReasonCommentsRoutine Visit Encounter Details DateTypeDepartmentCare Team (Latest Contact Info)Gcmukryvowy71/01/2025 11:20 AM EDTRoutine [facility] [address] [facility] [place] [address] Mima Duenas NP [address] [facility] [place] [address] 26 weeks gestation of ([facility]); Second trimester ([facility]); TSH (thyroid-stimulating hormone deficiency) Social History Tobacco UseTypesPacks/DayYears UsedDateSmoking Tobacco: Every DayCigarettes0.53 Smokeless Tobacco: NeverAlcohol UseStandard Drinks/WeekCommentsNot Currently0 (1 standard drink = 0.6 oz pure alcohol)caffeine: 1-2 cups per day teaPHQ-2Answer Date RecordedPatient Health Questionnaire-2 Kreyz317Estimated Date of OfhfuzypJxcevkzvJhd97/06/2026Based on Est. Date of ConceptionSex and Gender InformationValueDate RecordedSex Assigned at WqjfsDinevg33/04/2023 8:10 PM EDTLegal TxxCsmeld30/02/2023 9:50 PM EDTGender EoewepvvKexrum60/04/2023 8:10 PM EDTSexual OrientationNot on filedocumented as of this encounter Last Filed Vital Signs Vital SignReadingTime TakenCommentsBlood Avbaouot508/801 11:34 AM EDT Pulse--Temperature--Respiratory Rate--Oxygen Saturation--Inhaled Oxygen Concentration--Woolao215 kg (276 lb)01/16/2025 11:34 AM EDTHeight--Body Mass Index38.4905 10:04 AM EDTdocumented in this encounter Functional Status * Over the past 2 weeks, how often have you been bothered by any of the following problems?QuestionAnswerDate of AssessmentAuthorLittle interest or pleasure in doing thingsNot at all02/08/2025 1:09 PM Jojo Hannon LPN Feeling down, depressed, or hopelessNot at all02/08/2025 1:09 PM Jojo Hannon LPNPatient Health Questionnaire-2 Dmhdh867 1:09 PM Jojo Hannon LPN documented as of this encounter Progress Notes * Mima Duenas NP - 01/16/2025 11:20 AM EDT Reason for Appointment: Patient ID: [...] nursing note reviewed. Exam conducted with a funeral home assistant present. Vitals: Estimated body mass index is 38.49 kg/m?? as calculated from the following: Height as of 08/22/24: 5' 11 . Weight as of this encounter: 276 lb. BP: 122/80 No LMP recorded. Patient is . ASSESSMENT & PLAN ICD-10-CM 1. 26 weeks gestation of ([facility]) Z3A.26 POCT urinalysis dipstick manually resulted 2. Second trimester ([facility]) Z34.92 3. TSH (thyroid-stimulating hormone deficiency) E03.8 US OB follow up transabdominal approach TSH Return OB: Patient presents today for a routine obstetrics appointment. Patient is currently 26w1d . Patient states she is doing well but has complaints of being tired due to current . Patient has verbalizes frequent movement. labor precautions was discussed/given and patient was instructed to perform kick counts three times a day. Orders Placed This Encounter Procedures US OB follow up transabdominal approach TSH POCT urinalysis dipstick manually resulted Follow Up: Patient is to return to office in 3 week for routine OB appointment. Documented by Mima Duenas NP on behalf of: Mima Duenas NP documented in this encounter Plan of Treatment DateTypeDepartmentCare Team (Latest Contact Info)Uaabasvmcbg76/19/2025 10:30 AM ESTRoutine [facility] [address] [facility] [place] [address] Jojo Ames PA [address] [place] [address] 08/21/2025 9:30 AM EDTOffice Visit [facility] [place] [facility] [address] [place] [phone] Darleen Sinclair MD [address] [place] [address] NameTypePriorityAssociated DiagnosesOrder ScheduleTSHLabRoutine TSH (thyroid-stimulating hormone deficiency) Ordered: 01/16/2025documented as of this encounter Goals GoalPatient Goal TypeAssociated ProblemsRecent ProgressPatient-Stated?Author Reminders Care PlanOB RemindersNoOpen Scheduling, Backgrounddocumented as of this encounter Procedures Procedure NamePriorityDate/TimeAssociated DiagnosisCommentsPOCT URINALYSIS DDDHLKKHZdhvylr86/01/2025 11:40 AM EDT 26 weeks gestation of ([facility]) documented in this encounter Results * US OB follow up transabdominal approach (01/30/2025 3:10 PM EDT)Anatomical RegionLateralityModalityBodyUltrasoundSpecimen (Source)Anatomical Location / LateralityCollection Method / VolumeCollection TimeReceived Time01/31/2025 1:00 PM EDT Impressions 01/31/2025 1:17 PM EDT Single, live intrauterine , current sonographic age of 29 weeks and 5 days, with an estimated date of delivery of April 12, 2025 (prior DARWIN April 21, 2025). * ??Estimated Weight (g) by Percentile is based upon an accurate estimated age based onlast menstrual period. ?? TRANSCRIBED BY: ? ELECTRONICALLY SIGNED BY: Sravan Olivo MD Narrative 01/31/2025 1:17 PM EDT FINDINGS: Comparison December 04, 2024. A single, live intrauterine is present with normal cardiac rate of 150 beats per minute. Normal activity and amniotic fluid volume. Amniotic fluid index is 14 cm. ??Morphology is grossly normal. The current sonographic age is 29 weeks and 5 days, based on the following measurements: ?BPD ? 7.5 cm (30 weeks, 1 day) ?Head Circumference ?27.7 cm (30 weeks, 2 days) ?Abdominal Circumference ?25.5 cm (29 weeks, 5 days) ?Femur Length ?5.4 cm (28 weeks, 4 days) ?Presentation ? Cephalic ? Weight (g) by Percentile ??84.0 % * (prior 58%) These measurements result in an estimated date of delivery of April 12, 2025. ?? The current estimated weight is 1389 grams (3 pounds, 1 ounce). ?? Procedure Note Sravan Olivo MD - 01/31/2025 FINDINGS: Comparison December 04, 2024. A single, live intrauterine is present with normal cardiacrate of 150 beats per minute. Normal activity and amniotic fluidvolume. Amniotic fluid index is 14 cm. Morphology is grossly normal. Thecurrent sonographic age is 29 weeks and 5 days, based on the followingmeasurements: BPD 7.5 cm (30 weeks, 1 day) Head Circumference 27.7 cm (30 weeks, 2 days) Abdominal Circumference 25.5 cm (29 weeks, 5 days) Femur Length 5.4 cm (28 weeks, 4 days) Presentation Cephalic Weight (g) by Percentile 84.0 % * (prior 58%) These measurements result in an estimated date of delivery of March. The current estimated weight is 1389 grams (3 pounds, 1ounce). IMPRESSION: Single, live intrauterine , current sonographic age of 29 weeksand 5 days, with an estimated date of delivery of April 12, 2025 (priorEDD April 21, 2025). * Estimated Weight (g) by Percentile is based upon an accurateestimated age based on last menstrual period. TRANSCRIBED BY: ELECTRONICALLY SIGNED BY: Sravan Olivo MD Authorizing ProviderResult TypeResult StatusMima Duenas NPIMHONORHEALTH SC[facility] US PROCEDURESFinal Result * POCT urinalysis dipstick manually resulted (01/16/2025 11:40 AM EDT)Component ValueRef RangeTest MethodAnalysis TimePerformed AtPathologist SignatureColor, UAYellowClarity, UAClearGlucose, UANegativeNegative - 1999(110) ++++ mg/dL Bilirubin, UANegativeNegative - 4(70) +++ mg/dLKetones, UANegativeNegative - 160(16) ++++ mg/dLSpec Grav, UA1.0101 - 1.03Blood, UANegativeNegative - 50 Yehuda/mcLpH, UA7.05 - 9Protein, UANegativeNegative - 2000(20) ++++ mg/dL Urobilinogen, UA2.00.2 - 12 mg/dLLeukocytes, UANegativeNegative - 500+++ Kourtney/mcLNitrite, UANegativeNegative - PositiveSpecimen (Source)Anatomical Location / LateralityCollection Method / VolumeCollection TimeReceived Time Urine01/16/2025 11:40 AM EDT Narrative Authorizing ProviderResult TypeResult StatusMima Duenas NPPOINT OF CARE TEST ENTER/EDIT ORDERABLESFinal Result documented in this encounter Visit Diagnoses Diagnosis 26 weeks gestation of ([facility]) Second trimester ([facility]) state, incidental TSH (thyroid-stimulating hormone deficiency) Other specified acquired hypothyroidism TSH (thyroid-stimulating hormone deficiency) Other specified acquired hypothyroidism documented in this encounter Additional Health Concerns Active ProblemsNoted DateDiagnosed DateOB Gymofcuev62/07/2025 documented as of this encounter Care Teams Team MemberRelationshipSpecialtyStart DateEnd Date Amanda Ford NP [address] [place] [address] PCP - GeneralFamily Ebhvfweb18/2/23documented as of this encounter
--- OUTSIDE RECORDS SUMMARY | 2025-02-19 13:00 | XMS_ITS | Encounter Summary ---
Author Organization [facility] Address [address] [place] [address] Care Team Providers Care Radial Drill Press Set Up Operator Name Role Phone Amanda Ford RESEARCH COMPLIANCE SPECIALIST Primary Care Provider Reason for Visit * ReasonCommentsRoutine Visit Encounter Details DateTypeDepartmentCare Team (Latest Contact Info)Tyyflfkueij77/04/2025 1:00 PM ESTRoutine [facility] [address] [place] [phone] Les Martinez DO [address] [place], [place] [phone] Third trimester ([facility]); 31 weeks gestation of ([facility]); TSH (thyroid-stimulating hormone deficiency); H/O gastric sleeve Social History Tobacco UseTypesPacks/DayYears UsedDateSmoking Tobacco: Every DayCigarettes0.53 Smokeless Tobacco: NeverAlcohol UseStandard Drinks/WeekCommentsNot Currently0 (1 standard drink = 0.6 oz pure alcohol)caffeine: 1-2 cups per day teaPHQ-2Answer Date RecordedPatient Health Questionnaire-2 Xuizg043Estimated Date of GmfupvhtTdcumxrkPsh03/06/2026Based on Est. Date of ConceptionSex and Gender InformationValueDate RecordedSex Assigned at CjywvKsajzj37/04/2023 8:10 PM EDTLegal IbrApglys35/05/2022 9:50 PM EDTGender ZtmkklosDnukdi97/04/2023 8:10 PM EDTSexual OrientationNot on filedocumented as of this encounter Last Filed Vital Signs Vital SignReadingTime TakenCommentsBlood Tzyiedki097/7611 1:26 PM EST Pulse--Temperature--Respiratory Rate--Oxygen Saturation--Inhaled Oxygen Concentration--Czwszq207 kg (287 lb)02/19/2025 1:26 PM ESTHeight--Body Mass Index40.03008/22/2024 10:04 AM EDTdocumented in this encounter Progress Notes * Alana Valverde, GARMENT WORKER - 02/19/2025 1:00 PM EST Reason for [...] nursing note reviewed. Exam conducted with a polymer chemist present. Vitals: Estimated body mass index is 40.03 kg/m?? as calculated from the following: Height as of 08/22/24: 5' 11 . Weight as of this encounter: 287 lb. BP: 128/76 No LMP recorded. Patient is . Assessment/Plan ICD-10-CM 1. Third trimester ([facility]) Z34.93 POCT urinalysis dipstick manually resulted 2. 31 weeks gestation of ([facility]) Z3A.31 3. TSH (thyroid-stimulating hormone deficiency) E03.8 [...] Plan of Treatment DateTypeDepartmentCare Team (Latest Contact Info)Cjabftfhknl48/19/2025 10:30 AM ESTRoutine [facility] [address] [place] [phone] Jojo Ames PA [address] [place] [address] 08/21/2025 9:30 AM EDTOffice Visit [facility] [address] [place] [phone] Darleen Sinclair MD [address] [place] [address] NameTypePriorityAssociated DiagnosesOrder ScheduleUS biophysical profile w non stress testImagingRoutine TSH (thyroid-stimulating hormone deficiency) Expected: 02/19/2025 (Approximate), Expires: 08/19/2025documented as of this encounter Goals GoalPatient Goal TypeAssociated ProblemsRecent ProgressPatient-Stated?Author Reminders Care PlanOB RemindersNoOpen Scheduling, Backgrounddocumented as of this encounter Procedures Procedure NamePriorityDate/TimeAssociated DiagnosisCommentsPOCT URINALYSIS FICHTYSPHysykft00/04/2025 1:26 PM EST Third trimester ([facility]) documented in this encounter Results * POCT [...] Third trimester ([facility]) state, incidental 31 weeks gestation of ([facility]) TSH (thyroid-stimulating hormone deficiency) Other specified acquired hypothyroidism H/O gastric sleeve documented in this encounter Additional Health Concerns Active ProblemsNoted DateDiagnosed DateOB Dcgqzqnon28/07/2025 documented as of this encounter Care Teams Team MemberRelationshipSpecialtyStart DateEnd Date Amanda Ford NP [facility] [place] [address] PCP - GeneralFamily Liolvnyc20/2/23documented as of this encounter
--- OUTSIDE RECORDS SUMMARY | 2025-02-19 16:05 | XMS_ITS | Continuity of Care Document ---
Author Organization [facility] Address [address] [place] [address] Phone Reason for Referral Type Reason(s) Provider Provider Contact Information P rovider Address Start Date keep next scheduled appointmentkeep next scheduled appointmentLes Hood Phone: [phone] [place] [address] Allergies, Adverse Reactions, Alerts Allergen Type Severity Reaction Last Updated Verified Status NSAIDS (Non-Steroidal Anti-Inflamma Allergy Unknown Instructed not to take NSAIDS by PCP d/t weight loss surgery December 02, 2024 10:33pm Yes Active Social History Smoking Status Status Start Date End Date Date of Observa tion Ex-smoker (finding) October 18, 2024 11:39am Observation Status Observation Response Date of Response Legal Sex Female (finding) Sex [facility] 1994 Family History Relationship Condition Age at Onset Recorded Date/T sanjuanita mother Overactive bladder Unknown DepressionUnknownHypothyroidismUnknownFamily history of thyroid diseaseUnknown Family history of mental disorderUnknownfatherOveractive bladderUnknown HypertensionUnknownHypothyroidismUnknownFamily history of thyroid diseaseUnknown Diabetes mellitusUnknownsisterOveractive bladderUnknownHypothyroidismUnknown Family history of thyroid diseaseUnknown Problems Active Problems Problem Diagnosis/Recorded Date Onset Date Status Rudi ingram Right carpal tunnel syndrome November 01, 2023 10:48am Unkno wn Active Acute flank painMarch 2021 11:37amUnknownActiveAcute urticariaJanuary 2024 8:51amUnknownActiveStatus post arthroscopy of right shoulderAugust 2023 6:46amUnknownActiveDegenerative superior labral yeviyhel-xe-cbtgbtuvc (SLAP) tear of right shoulderJune 2023 5:53amUnknownActiveMultidirectional instability of glenohumeral jointJune 2023 5:53amUnknownActiveObstructive sleep apneaFebruary 2023 8:00amUnknownActivepatient denies. sleep study 2010Other instability, right shoulderJune 2023 5:54amUnknownActiveLaxity of ligamentJune 2023 5:54amUnknownActiveright shoulderFeverFebruary 2023 3:23pmUnknownActiveChillsFebruary 2023 3:23pmUnknownActiveDUB (dysfunctional uterine bleeding)April 10, 2022 9:40pmUnknownActiveAbscess August 01, 2021 2:43pmUnknownActiveAnemiaFebruary 2022 5:36pmUnknown ActiveADD (attention deficit disorder)June 03, 2023 8:00amUnknownActive Bipolar disorderJune 2019 10:24amUnknownActiveEncounter for recheck of abscess following incision and drainageApril 2021 3:10pmUnknownActive HypothyroidJune 2019 10:23amUnknownActiveOther chronic painFebruary 2023 8:00amUnknownActiveH/O gastric sleeveApril 2021 1:20pmUnknownActive April 2020Numbness of right handJune 2023 9:16amUnknownActiveIron deficiency anemiaFebruary 2022 5:36pmUnknownActiveGastroesophageal reflux disease without esophagitisFebruary 2023 8:00amUnknownActiveAnxiety and depressionApril 2021 1:21pmUnknownActiveAbdominal painFebruary 2023 3:22pmUnknownActiveConstipationFebruary 2023 3:22pmUnknownActiveVomiting June 08, 2023 3:22pmUnknownActiveInactive/Resolved Problems Problem Diagnosis/Recorded Date Onset Date Status C omments Vaginal bleeding during October 18, 2024 1:39pm Unknown Resolved Medications Medication Status Dose Units Route Directions Qty Days Refills S tart Date Stop Date End Date Reason(s) Instructions Adherence Lansoprazole 30 mg capsule,delayed release(DR/EC) Discontinued 30 MG PO Daily 90 90 1 August 15, 2023 7:55am November 28, 2023 3:02pmGastroesophageal reflux disease without esophagitis Gastro-esophageal reflux disease without esophagitis GERDDocusate Sodium 100 mg lfforkeZxeccvhmbthp026NFGBOkhft daily as needed for hdewjyypgrjh79254Dbtjo 2023 11:59amAugust 2023 5:43amFerrous Sulfate 325 mg (65 mg iron) xgkcsgRnjvmikpjvna071GJIMFtpja79153Ios 2023 10:07am December 01, 2023 2:18pmLidocaine 5 % adhesive patch,medicatedDiscontinued0 .ROUTE.HPEIWXL556Lrri 2023 7:47amOctober 2023 11:04amAPPLY 1 PATCH TOPICALLY ONCE DAILY. REMOVE AFTER 12 HOURSOxycodone 5 mg zmxxjxJaqcnwxwpmbj4FP POQ6H as needed for Wpjw5230Ibjogy 2023 6:13amStatus post arthroscopy of right shoulder Other specified postprocedural statesDocusate Sodium (Colace) 100 mg capsule Qzwxlktbfhqj008IJEBNkeyl daily as needed for Vafbrgvqfhdl18375Enebhq 2023 11:00pmAugust 2023 5:44amAcetaminophen 500 mg avmesfYdtqtn034JWDUW0V as needed for Ihsr734Tsufei 2023 11:00pmUnknownOxycodone 5 mg tablet Nvefrfdliale9SFAG.q6-8hrs as needed for severe lcqp8367Eswszq 2023December 20, 2023 9:47amStatus post arthroscopy of right shoulder Other specified postprocedural statesTake with food. Do not fill until 12/10/23. Tramadol 50 mg mbklhrJtksugxbipgq67MDNQNvkzf 8 hours as needed for liww2583 December 15, 2023 2:44pmOctober 2023 11:04amStatus post arthroscopy of right shoulder Other specified postprocedural statesLansoprazole 30 mg capsule,delayed release(DR/EC)Eqescyeevqas99ADACIcwzq wbeoehu27762Ywltjxi 2023 10:57am August 07, 2024 1:30pmGastroesophageal reflux disease without esophagitis Gastro-esophageal reflux disease without esophagitis GERDLidocaine 5 % adhesive patch,dwiswawviVlyyrwnzlxej3DOEKKEQQPDUDHduvj298 February 24, 2024 12:00amNovember 2023 8:54amleave on most painful area for up to 12 hrsLidocaine 5 % adhesive patch,medicatedDiscontinued0.ROUTE .LCKYAEH470Voxqbysx 8th, 2024 8:53amJanuary 2024 8:57amAPPLY 1 PATCH TOPICALLY ONCE DAILY. REMOVE AFTER 12 HOURSDocusate Sodium 100 mg capsule Bvdjcciryzwi980TPKCXfqwe122Aiqaioyk 30th, 2024 12:00amDecember 2023 8:58am Docusate Sodium (Stool Softener) 100 mg capsuleDiscontinued0.ROUTE.TQUSIDJ537 April 16, 2024 8:58amJanuary 2024 8:57amTAKE 1 CAPSULE BY MOUTH TWICE DAILY NEEDED FOR CONSTIPATIONLansoprazole 30 mg capsule,delayed release(DR/EC)Qizpdealjvtv74HUJSPpvxy nssvent14854Bghcb 2024 1:29pmOctober 2024 6:26amGastroesophageal reflux disease without esophagitis Gastro-esophageal reflux disease without esophagitis GERDLansoprazole 30 mg capsule,delayed release(DR/EC)Blsmyw35OQGTRgbid 901October 2024 6:26amGastroesophageal reflux disease without esophagitis Gastro-esophageal reflux disease without esophagitis GERDUnknownQuetiapine 25 mg jdidewEljqzt34IEUMJuywgdyXtqhllxc 24th, 2022 12:00am Complies with drug therapyLamotrigine 200 mg apwdgcYvthlo778XBITLaedh April 10, 2022 12:00amComplies with drug therapyBuspirone 15 mg tablet DiscontinuedMGApril 10, 2022 12:00amFebruary 2022 5:28pm Medroxyprogesterone (Provera) 10 mg sbatkuCsnterdrnbvi83HWAOClbdv99772Omyfgpqm 2021 12:00amFebruary 2022 5:28pmbegin day 16 of cyclePolysaccharide Iron Complex (Pro Fe) 180 mg iron gnniqjrBglerjuhulkp290ASXHOiizkFvrldv 2023 11:00pmJanuary 2024 2:52pmTramadol 50 mg syghmrOpnpxuyjlxdz60DFMMGxdhk 8 hours as needed for cxzu9570Utzkdp 2023 11:00pmAugust 2023 2:45pm Status post arthroscopy of right shoulder Other specified postprocedural statesPolysaccharide Iron Complex (Pro Fe) 180 mg iron kwgpzvkMfwcxt098VFIHIavqp dailyJanuary 2024 2:51pmComplies with drug therapySertraline 25 mg tabletActiveMGAugust 2024 11:00pmUnknown Levothyroxine 175 mcg NfugxmHmmtszupnfyz263RFQEWohvft other dayJun2019 11:00pmApril 2021 1:99puDgizkkadistzzz3 tablet on odd daysCyclobenzaprine 10 mg crsiqbMzfaajdsbple11YYSJDiwem times daily as needed for Muscle SpasmJune 2019 11:00pmApril 2021 1:19pmLevothyroxine 175 mcg Tablet Fngewlznvtmq560HQKNPnsmna other 2019 11:00pmApril 2021 1:72lertkfvxspehbvox7.5 tabs every other day on even daysNorgestimate-Ethinyl Estradiol (Sprintec (28)) 0.25-35 mg-mcg jdhexsDslcnaybqgbm5HGPNBClbfjSoyg 21st, 2020 11:00pmApril 2021 1:19pmBCPLamotrigine 200 mg kxrwzwCiklcxywjpwi922SG PODaily at bedtimeJun2019 11:00pmApril 2021 1:19pmBipolar disorder Alprazolam (Xanax) 0.5 mg TabletDiscontinued0.5MGPOThree times daily as needed for AnxietyJune 2019 11:00pmDecember 2021 6:18pmLansoprazole 30 mg capsule,delayed release(DR/EC)Cozizmjgxwpt90LDZILthuwUxeh 2019 11:00pm August 15, 2023 7:56amGERDErgocalciferol (Vitamin D2) (Vitamin D2) 1,250 mcg (50,000 unit) nnoptbhZgrgrsfqinrp77513IUYVTXknomu weekJun2019 11:00pm August 01, 2021 1:19pmvitamin d deficiencyTakes on TuesdayZiprasidone Hcl (Geodon) 60 mg NxqndhoVmvtfjkwssqx30YBXIBjvfc dailyJune 2019 11:00pmApril 2021 1:19pmBipolar disorderDoxycycline Hyclate 100 mg tabletDiscontinued 100MGPOTwice zpksn855Jirsq 2021 11:00pmDecember 2021 6:18pm Hydrocodone-Acetaminophen 5-325 mg okcnhvIzsocbrtuyyi8WBEAYW1K as needed for uxfc192Xvhps ecember 2021 6:18pmAbscess Cutaneous abscess, unspecifiedCyclobenzaprine 10 mg hvkabuUytqmfxdcvma26SZEZ BedtimeFebruary 2022 12:00amAugust 2023 2:55pmAlprazolam (Xanax) 0.5 mg TabletDiscontinued0.5MGPODaily as needed for AnxietyFebruary 2022 12:00amFebruary 2023 8:04amBuspirone 15 mg kavrpsSwqfccizxtqd68RIXOPmahf times dailyFebruary 2022 12:00amFebruary 2023 8:04amTAKE 1 TABLET BY MOUTH THREE TIMES DAILY NEEDED FOR 30 DAYSMupirocin Calcium 2 % cream Vzsseidjhnee5GDHNXGPIUBYMQOkgug daily as needed for GENITAL BOILSFebruary 2022 12:00amAugust 2024 10:34pmFerrous Sulfate 325 mg (65 mg iron) tablet Oohbgboyaffw467DBVPYcjdg475Fjnxmtgi 24th, 2023 12:00amMay 2023 10:07am Docusate Sodium 100 mg irhaqpcMqpwdwbcxbms017AMVENztaj daily as needed for cjsehpuqheiz527Kgbyozgd 2022 1:05pmApril 2023 11:59amBuspirone 15 mg xakretVuadjxwloxvq20UHKAFyvzi dailyFebruary 2023 8:012024 10:34pmAlprazolam (Xanax) 0.5 mg tabletDiscontinued0.5MGPOTwice daily as needed for AnxietyFebruary 2023 8:03amAugust 2024 10:33pmacetaminophen (Tylenol Extra Strength)Hdufdmmxscts6731KOYJNBRQR 8-10 HOURS as needed for pain November 27, 2023 11:00pmOctober 2023 11:03amDiclofenac Sodium (Aleve (Diclofenac)) 1 % lzhYercdqikeyrc0WMWLOSGXPWfib times daily as needed for pain November 27, 2023 11:00pmOctober 2023 11:03amapply to single elbow, wrist or hand; for hand includes palm/fingers/back of handLansoprazole 30 mg capsule,delayed release(DR/EC)Ntuoryyvpjbf18EIEZFmnjg morningAugust 2023 11:00pmOctober 2023 10:58amGERDLevothyroxine 50 mcg tmhlajmFjspjrcgzzsi86 MCGPOEvery morningJune 2023 11:00pmJanuary 2024 8:56amLidocaine 5 % adhesive patch,pvefytpwmHycnqacoqjux8NCQTIOHIQOESAgvgm as neededFebruary 2023 12:00amJuly 2023 7:48amREMOVE AFTER 12 HOURSNaltrexone 50 mg tablet Tmngzmirwcoy55WDCRRddag dailyFebruary 2023 12:00amJanuary 2024 2:52pm Naltrexone 50 mg wdandgIcvkjypvebvk497PNFZHgmnv dailyJanuary 2024 2:51pm December 02, 2024 10:34pmBupropion Hcl (Wellbutrin Sr) 150 mg tablet sustained- release 12 uyYiamrgwwmens620RKNMIxgufZjhspzk 9th, 2025 12:00amAugust 2024 10:34pmDocusate Sodium (Stool Softener) 100 mg capsuleActive0.ROUTE.GEJIOBG060 April 26, 2024 8:52amTAKE 1 CAPSULE BY MOUTH TWICE DAILY NEEDED FOR CONSTIPATIONComplies with drug therapyLidocaine 5 % adhesive patch,medicated Active0.ROUTE.PBJSAXK98062Uubuifn 2024 8:53amOther chronic pain Other chronic painAPPLY 1 PATCH TOPICALLY ONCE DAILY. REMOVE AFTER 12 HOURS Complies with drug therapyLevothyroxine 50 mcg pkrobqHfwkol82OLQVBXwyhx81398 April 26, 2024 12:00amHypothyroidism Hypothyroidism, unspecifiedComplies with drug therapy Immunizations Immunization Event Date Not Given Reason Dose Number Child Care Associate Teacher Lot Number Reason(s) Given Vaccine Information Statement (VIS) Detail Administration Location COVID-19 mRNA-1273 (Moderna) July 22, 2020 COVID-19 mRNA-1273 (Moderna)August 19, 2020 Medical Equipment Device Date Implanted Device Details Tendon/ligament bone anchor, non-bioabsorbable December 07, 2023 GIULIANO: [id number] Issuing Agency: [facility] Device Id: [id number] Expiration Date: 2028-09-15 Lot Number: [id number]/ligament bone anchor, non-bioabsorbableAugust 2023UDI: ()[id number] Issuing Agency: [facility] Device Id: [id number] Expiration Date: 2028-09-15 Lot Number: [id number]/ligament bone anchor, non-bioabsorbableAugust 2023UDI: ()[id number] Issuing Agency: [facility] Device Id: [id number] Expiration Date: 2028-09-15 Lot Number: [id number]/ligament bone anchor, non-bioabsorbableAugust 2023UDI: ()[id number] Issuing Agency: [facility] Device Id: [id number] Expiration Date: 2028-09-15 Lot Number: [id number]/ligament bone anchor, non-bioabsorbableAugust 2023UDI: ()[id number] Issuing Agency: [facility] Device Id: [id number] Expiration Date: 2028-09-15 Lot Number: [id number]/ligament bone anchor, non-bioabsorbableAugust 2023UDI: ()[id number] Issuing Agency: [facility] Device Id: [id number] Expiration Date: 2028-09-15 Lot Number: [id number]/ligament bone anchor, non-bioabsorbableAugust 2023UDI: ()[id number] Issuing Agency: [facility] Device Id: [id number] Expiration Date: 2028-09-15 Lot Number: [id number]/ligament bone anchor, non-bioabsorbableAugust 2023UDI: ()[id number] Issuing Agency: [facility] Device Id: [id number] Expiration Date: 2028-05-18 Lot Number: [id number]/ligament bone anchor, non-bioabsorbableAugust 2023UDI: ()[id number] Issuing Agency: [facility] Device Id: [id number] Expiration Date: 2028-05-18 Lot Number: [id number]/ligament bone anchor, non-bioabsorbableAugust 2023UDI: ()[id number] Issuing Agency: [facility] Device Id: [id number] Expiration Date: 2028-05-18 Lot Number: [id number] NASAL SEPTAL 3CMJune 2019 Advance Directives Advance Directive Response Recorded Date/ Time Advance Directives No March 3:24pm Insurance Providers Guarantor Jaz Colt Tommy Address [address] [facility] [address]Cizcztn Info.Home Phone: Payer Group Member ID Coverage Type Subscriber Relationship to Subscriber Effective Date Expiration Date O Id: [id number] E Nunez Id: [id number] [address] [facility] [address] Home Phone: Plan of Treatment Future Tests Future scheduled test information is unavailable Pending Tests Pending diagnostic test information is unavailable Future Visits Future appointment information is unavailable Future Procedures Procedure Name Ordered Date Scheduled Date Admit Status Order December 02, 2024 10:19pm Aug ust 2024 10:19pm Discharge Order December 06, 2024 9:24am December 02, 2024 10:55pm Future Medications Future medication information is unavailable Patient Instructions Instruction Admit Date Antepartum Discharge Instructions ([facility]) December 02, 2024 11:16pm
--- NOTE | 2025-02-25 | US_ITS ---
[facility] [place] [id number] Patient Name: GUZMAN DEL CID MRN: [id number] date: 1995 Sex: F Assigned Patient Location: [facility] Current Patient Location: Accession/Order Number: [id number] Exam Date: 02/25/2025 14:03 Report Date: 02/26/2025 08:30 At the request of: BASIM BIRMINGHAM DO Procedure: US OB BPP w non-stress BIOPHYSICAL PROFILE: CLINICAL INFORMATION: TSH DEFICIENCY E03.8 COMPARISON: 01/21/2025 There is a single live intrauterine gestation in cephalic presentation. The reported gestational age is 31 weeks 6 days. The heart rate measures 126 beats per minute. FINDINGS: TONE: 1 or more episodes of activity extension and flexion of extremity or opening and closing of the hand [Y] 2/2 GROSS BODY MOVEMENTS: 3 or more discrete body or limb movements [Y] 2/2 BREATHING MOVEMENTS: 1 or more episodes of breathing lasting at least 30 seconds [Y] 2/2 STARR: A single deepest vertical pocket of amniotic fluid greater than 2 cm [Y] 2/2 STARR: 17.9 cm Total score: 8/8 US/US OB BPP w non-stress IMPRESSION: NORMAL BIOPHYSICAL PROFILE. Impression dictated by: Alana Umana M.D. 02/26/2025 8:30 AM Dictation Location: [place] [address] Electronically authenticated by: [id number] Y Date: 02/26/2025 08:30
--- OUTSIDE RECORDS SUMMARY | 2025-02-25 13:59 | XMS_ITS | Encounter Summary ---
Author Organization [facility] Address [address] [place] [address] Care Team Providers Care Vineyard Tender Name Role Phone Amanda Ford TESTER ARMATURE OR FIELDS Primary Care Provider Encounter Details DateTypeDepartmentCare Team (Latest Contact Info)Fmtxqdtbkxy86/04/2025Bamboo flowsheet [facility] [address] [place] [phone] Les Martinez DO [address] Justo Chacko, [facility] Social History Tobacco UseTypesPacks/DayYears UsedDateSmoking Tobacco: Every DayCigarettes0.53 Smokeless Tobacco: NeverAlcohol UseStandard Drinks/WeekCommentsNot Currently0 (1 standard drink = 0.6 oz pure alcohol)caffeine: 1-2 cups per day teaPHQ-2Answer Date RecordedPatient Health Questionnaire-2 Fgbba041Estimated Date of BictpycmIrbksszpCkf78/06/2026Based on Est. Date of ConceptionSex and Gender InformationValueDate RecordedSex Assigned at FmceiTsetny90/04/2023 8:10 PM EDTLegal MlrEzkhoj12/02/2023 9:50 PM EDTGender BskubzvrRdvwmr63/04/2023 8:10 PM EDTSexual OrientationNot on filedocumented as of this encounter Plan of Treatment DateTypeDepartmentCare Team (Latest Contact Info)Zhftprocnda43/19/2025 10:30 AM ESTRoutine [facility] [address] [place] [phone] Jojo Ames PA [address] [place] [address] 08/21/2025 9:30 AM EDTOffice Visit [facility] [place] [facility] [address] [place] [address] Darleen Sinclair MD [address] [place] [address] documented as of this encounter Goals GoalPatient Goal TypeAssociated ProblemsRecent ProgressPatient-Stated?Author Reminders Care PlanOB RemindersNoOpen Scheduling, Backgrounddocumented as of this encounter Visit Diagnoses Not on filedocumented in this encounter Additional Health Concerns Active ProblemsNoted DateDiagnosed DateOB Tagutdmif72/07/2025 documented as of this encounter Care Teams Team MemberRelationshipSpecialtyStart DateEnd Date Amanda Ford NP [address] [facility] [address] [place] [address] PCP - GeneralFamily Inwvwhrp66/2/23documented as of this encounter
--- OUTSIDE RECORDS SUMMARY | 2025-02-25 13:59 | XMS_ITS | Clinical Summary ---
Author Organization [facility] Address [address], [address] [place] [address] Care Team Providers Care Sas Administrator Name Role Phone Robin Marquez MD Primary Care Provider [phone] Allergies No known active allergies Medications MedicationSigDispense QuantityRefillsLast FilledStart DateEnd DateStatus levothyroxine (SYNTHROID) 175 MCG tablet TAKE 2 TABLETS BY MOUTH ONCE LWNMB296Active ALPRAZolam (XANAX) 0.5 MG tablet TAKE 1 [...] ProblemNoted DateDiagnosed DateRight upper quadrant abdominal pain03/30/2021 Rmeixwtutjb00/13/2021Orthostatic fmdicvkcp03/13/2021Obesity (BMI 30-39.9) 02/09/2021Obesity, Class III, BMI 40-49.9 (morbid obesity)11/10/2020hronic low back pain11/10/2020tatus post laparoscopic sleeve evxcjtsuqyo13/19/2021Vitamin D upagqlpvuq91/27/5550Dhotzmkqrmdsme59/20/2019Bipolar disease, kcsccbw0912/05/2018 Plantar fasciitis, oozvqdeij57/20/2019Marijuana use12/05/2018 Resolved Problems ProblemNoted DateDiagnosed DateResolved DateMorbid obesity with BMI of 50.0- 59.9, adultMorbid obesity with BMI of 60.0-69.9, adult Family History Medical HistoryRelationNameCommentsHigh Blood PressureFatherOtherMotherOther SisterRelationNameStatusCommentsFatherAlivethyroidMotherAlivethyroidSisterOther thyroid Social History Tobacco UseTypesPacks/DayYears UsedDateSmoking Tobacco: NeverSmokeless Tobacco: NeverAlcohol UseStandard Drinks/WeekCommentsNo0 (1 standard drink = 0.6 oz pure alcohol)CommentsNoSex and Gender InformationValueDate RecordedSex Assigned at BirthNot on fileLegal EodTvevdr71/26/2015 7:37 PM ESTGender Identity Not on fileSexual OrientationNot on file Last Filed Vital Signs Vital SignReadingTime TakenCommentsBlood Flnefghx790/6001/ 2:44 PM EST Ubguh8469/27/2022 2:44 PM RWNTcyvatdjpfw74.7 ??C (98.1 ??F)03/30/2021 5:10 PM ESTRespiratory Zbwy5205 5:10 PM ESTOxygen Jjpqpyvuei45%03/30/2021 5:10 PM ESTInhaled Oxygen Concentration--Dalvdy44 kg (205 lb)09/04/2021 9:27 AM EDT Nsizvh288.9 cm (6')09/04/2021 9:27 AM EDTBody Mass Index27.8009/04/2021 9:27 AM EDT Plan of Treatment Not on file Insurance Advance Directives * Full Code (Latest Code Status on File) Date ActivatedDate InactivatedComments05/06/2020 4:42 PM05/08/2020 3:13 PM Care Teams Team MemberRelationshipSpecialtyStart DateEnd Date Robin Marquez MD [address] [phone] PCP - GeneralFamily Medicine10/10/18
--- OUTSIDE RECORDS SUMMARY | 2025-02-25 13:59 | XMS_ITS | Encounter Summary ---
Author Organization [facility] Address [address] [place] [address] Care Team Providers Care Instrument Shop Supervisor Name Role Phone Amanda Ford OUTPATIENT ADMITTING CLERK Primary Care Provider Encounter Details DateTypeDepartmentCare Team (Latest Contact Info)Bmcherecwaa33/28/2025Travel Social History Tobacco UseTypesPacks/DayYears UsedDateSmoking Tobacco: Every DayCigarettes0.53 Smokeless Tobacco: NeverAlcohol UseStandard Drinks/WeekCommentsNot Currently0 (1 standard drink = 0.6 oz pure alcohol)caffeine: 1-2 cups per day teaPHQ-2Answer Date RecordedPatient Health Questionnaire-2 Ysdyk574Estimated Date of XlirrfpmDelxbmnfHdq20/06/2026Based on Est. Date of ConceptionSex and Gender InformationValueDate RecordedSex Assigned at AlleyPabudc29/04/2023 8:10 PM EDTLegal IqnTkmfnw96/02/2023 9:50 PM EDTGender LpygvfynHgremt61/04/2023 8:10 PM EDTSexual OrientationNot on filedocumented as of this encounter Plan of Treatment DateTypeDepartmentCare Team (Latest Contact Info)Thhlshkzvlz09/19/2025 10:30 AM ESTRoutine [facility] [address] [place] [phone] Jojo Ames PA [address] [place] [address] 08/21/2025 9:30 AM EDTOffice Visit [facility] [place] [facility] [address] [place] [address] Darleen Sinclair MD [address] [place] [address] documented as of this encounter Goals GoalPatient Goal TypeAssociated ProblemsRecent ProgressPatient-Stated?Author Reminders Care PlanOB RemindersNoOpen Scheduling, Backgrounddocumented as of this encounter Visit Diagnoses Not on filedocumented in this encounter Additional Health Concerns Active ProblemsNoted DateDiagnosed DateOB Kcotnkrvr59/07/2025 documented as of this encounter Care Teams Team MemberRelationshipSpecialtyStart DateEnd Date Amanda Ford NP [facility] [facility] [place] [address] PCP - GeneralFamily Iukraxts76/2/23documented as of this encounter
--- OUTSIDE RECORDS SUMMARY | 2025-02-25 13:59 | XMS_ITS | Encounter Summary ---
Author Organization [facility] Address [address] [place] [address] Care Team Providers Care Gluten Settling Tender Name Role Phone Amanda Ford PIGS FEET CLEANER Primary Care Provider Encounter Details DateTypeDepartmentCare Team (Latest Contact Info)Vxdnomnlcvc98/28/2025bstract [facility] [address] [place] [address] Jojo Be, TURNTABLE WORKER [address] [place], [place] [id number] Social History Tobacco UseTypesPacks/DayYears UsedDateSmoking Tobacco: Every DayCigarettes0.53 Smokeless Tobacco: NeverAlcohol UseStandard Drinks/WeekCommentsNot Currently0 (1 standard drink = 0.6 oz pure alcohol)caffeine: 1-2 cups per day teaPHQ-2Answer Date RecordedPatient Health Questionnaire-2 Xyzpw131Estimated Date of MinrllqjYhrkaqlmPve33/06/2026Based on Est. Date of ConceptionSex and Gender InformationValueDate RecordedSex Assigned at OdacrUrlikk69/04/2023 8:10 PM EDTLegal MvxOayuzq45/02/2023 9:50 PM EDTGender PmwtsdhcYffexy13/04/2023 8:10 PM EDTSexual OrientationNot on filedocumented as of this encounter Plan of Treatment DateTypeDepartmentCare Team (Latest Contact Info)Abyvazxnyow72/ 10:30 AM ESTRoutine [facility] [address] [place] [address] Jojo Ames PA [address] [place] [address] 08/21/2025 9:30 AM EDTOffice Visit [facility] [place] [facility] [address] [place] [address] Darleen Sinclair MD [address] [place] [address] documented as of this encounter Goals GoalPatient Goal TypeAssociated ProblemsRecent ProgressPatient-Stated?Author Reminders Care PlanOB RemindersNoOpen Scheduling, Backgrounddocumented as of this encounter Visit Diagnoses Not on filedocumented in this encounter Additional Health Concerns Active ProblemsNoted DateDiagnosed DateOB Eqeazsyzq08/07/2025 documented as of this encounter Care Teams Team MemberRelationshipSpecialtyStart DateEnd Date Amanda Ford NP [facility] [place] [address] [place] [address] PCP - GeneralFamily Dxqwwoyq11/2/23documented as of this encounter
--- OUTSIDE RECORDS SUMMARY | 2025-02-25 13:59 | XMS_ITS | Clinical Summary ---
Author Organization [facility] Address [address] [place] [address] Care Team Providers Care Organ Pipe Voicer Name Role Phone Unavailable Primary Care Provider [...] RecordedNational Score (1-100), lower number is lower fvgi713902/28/2024State Score (1-10), lower number is lower gyjm03904/29/2023 Data from: https://www.neighborhoodatlas.medicine.[facility]/. Last address used for hqblvpjjitg537 self lfpumrmsy28/12/2024CommentsYesSex and Gender InformationValueDate RecordedSex Assigned at BirthNot on fileLegal SexFemale 07/13/2023 12:45 PM EDTGender IdentityNot on fileSexual OrientationNot on file Last Filed Vital Signs Vital SignReadingTime TakenCommentsBlood Pressure--Pulse--Temperature-- Respiratory Rate--Oxygen Saturation--Inhaled Oxygen Concentration--Zrebcq18.3 kg (216 lb 11.4 oz)02/28/2024 2:03 PM QAUPmiwvl352.3 cm (5' 11 )02/28/2024 2:03 PM ESTBody Mass Index30.23104/29/2023 2:03 PM EST Plan of Treatment Health MaintenanceDue DateLast DoneCommentsAnxiety Ecvuispcr62/17/2013Depression Gwdduxuqg90/17/2013Hepatitis B Vaccine (1 of 3 - 19+ 3-dose series)2014 Cervical Cancer Vskbbdzdf34/17/2016HPV Vaccine (1 - 3-dose SCDM series) 2022ovid-19 Vaccine ( - 2024- season)2024Influenza Vaccine (#1) 2024DTaP,Tdap,Td Vaccine (2 - Td or Tdap)/12/2022RSV Vaccine (1 - 1-dose 75+ series)2070HIV QfndpdjziIhzyvihob29/16/2024Hepatitis C NuigzoivdXwzeildjt94/16/2024 Procedures Procedure NamePriorityDate/TimeAssociated DiagnosisCommentsHIV 1/2 COMBO WITH REFLEX TO PULMMUDZIVBRBYSKrsmksl36/16/2024 3:21 PM EST Special screening examination for infectious diseases HEPATITIS C ANTIBODY IA WITH MCRKHERZEHKUIkoqopf26/16/2024 3:21 PM EST Special screening examination for infectious diseases from Last 3 Months or Most Recently Relevant to Health Maintenance Results * HIV 1/2 COMBO WITH REFLEX TO DIFFERENTIATION (04/02/2024 3:21 PM EST)Component ValueRef RangeTest MethodAnalysis TimePerformed AtPathologist SignatureHIV 12 Combo (Ag/Ab)EyvhgmsbdhuSiuiyugcbvh19/17/2024 12:27 PM [facility]-1/2 AB (Confirmatory)04/03/2024 12:27 PM [facility] LABComment:Test not indicated.HIV Tqusdcbckzrfox65/17/2024 12:27 PM [facility]Comment: No evidence of HIV-1 or HIV-2 infection. Should recent infection be suspected, repeat testing may be considered 2-3 weeks after this draw. Mckenzie Rev. Code 3701.243(E): This information has been [...] Hernandez APRN.CNPLABORATORY Final ResultPerforming OrganizationAddressCity/State/ZIP CodePhone Number [facility] [address] [place] [address], * HEPATITIS C ANTIBODY IA WITH CONFIRMATION (04/02/2024 3:21 PM EST)Component ValueRef RangeTest MethodAnalysis TimePerformed AtPathologist SignatureHep C Antibody LCNokpwhckQfnthxel43/17/2024 11:20 AM [facility] LABComment:The result suggests no evidence of active infection with Hepatitis C virus. Should recent infectionbe suspected, repeat testing may be considered 4-6 weeks after this draw.Specimen (Source)Anatomical Location / Laterality Collection Method / VolumeCollection TimeReceived TimeBloodBLOOD SPECIMEN / UnknownVenipuncture / Qyjfcvq9604/02/2024 3:21 PM EST04/02/2024 3:22 PM EST Narrative Authorizing ProviderResult TypeResult StatusShelly Hernandez APRN.CNPLABORATORY Final ResultPerforming OrganizationAddressCity/State/ZIP CodePhone Number [facility] [address] [facility] [address] [address], from Last 3 Months or Most Recently Relevant to Health Maintenance Insurance
--- OUTSIDE RECORDS SUMMARY | 2025-02-25 13:59 | XMS_ITS | Clinical Summary ---
Author Organization [facility] Address [address] [place] [address] Phone Care Team Providers Care Second Worker Name Role Phone Unavailable Primary Care Provider Unavailabl e Social History Tobacco UseTypesPacks/DayYears UsedDateSmoking Tobacco: Never Assessed CommentsUnknownSex and Gender InformationValueDate RecordedSex Assigned at Not on fileLegal BqsZipmkz32/26/2024 8:23 AM EDTGender IdentityNot on fileSexual OrientationNot on file Plan of Treatment Health MaintenanceDue DateLast DoneCommentsHIV Yzuyjzccg1995Lipid Panel 1995TSH Level1995MMR Vaccines (1 of 1 - Standard series)1996 Hepatitis C Ksstoawqw11/17/2013Hepatitis B Vaccines (1 of 3 - 19+ 3-dose series) 2014HPV/Lrdwzw4303/04/2016HPV Vaccines (1 - 3-dose standard series) 2022Influenza Vaccine (#1)5COVID-19 Vaccine (3 - 2024- season) 505/07/2020, 07/22/2020Yearly Adult Kpfwrkhl43/07/2023 Cervical Cancer Fwycvtsqp00/04/2027Pap Smear/TaP/Tdap/Td Vaccines (2 - Td or Tdap)/12/2022Zoster [...]
--- OUTSIDE RECORDS SUMMARY | 2025-02-25 13:59 | XMS_ITS | Encounter Summary ---
Author Organization [facility] Address [address] [place] [address] Care Team Providers Care Spinning Frame Changer Name Role Phone Amanda Ford MEDICAL IMAGING SPECIALIST Primary Care Provider Encounter Details DateTypeDepartmentCare Team (Latest Contact Info)Lsokxwtkkwa86/04/2025linisync Result Encounter [facility] External Department Unsolicited Les Martinez, DO [address] [facility] [address] [place] [place], [place] [id number] Social History Tobacco UseTypesPacks/DayYears UsedDateSmoking Tobacco: Every DayCigarettes0.53 Smokeless Tobacco: NeverAlcohol UseStandard Drinks/WeekCommentsNot Currently0 (1 standard drink = 0.6 oz pure alcohol)caffeine: 1-2 cups per day teaPHQ-2Answer Date RecordedPatient Health Questionnaire-2 Mdowl461Estimated Date of CreyedjwBvhywdxuQxv40/06/2026ased on Est. Date of ConceptionSex and Gender InformationValueDate RecordedSex Assigned at NqvuyNnqnfs44/04/2023 8:10 PM EDTLegal BgkQenjij49/02/2023 9:50 PM EDTGender CwqbqyrqMzhrmj54/04/2023 8:10 PM EDTSexual OrientationNot on filedocumented as of this encounter Plan of Treatment DateTypeDepartmentCare Team (Latest Contact Info)Rnmjspodduf67/19/2025 10:30 AM ESTRoutine [facility] [address] [place] [address] Jojo Ames PA [address] [place] [address] 08/21/2025 9:30 AM EDTOffice Visit [facility] [place] [facility] [address] [place] [address] Darleen Sinclair MD [address] [place] [address] documented as of this encounter Goals GoalPatient Goal TypeAssociated ProblemsRecent ProgressPatient-Stated?Author Reminders Care PlanOB RemindersNoOpen Scheduling, Backgrounddocumented as of this encounter Procedures Procedure NamePriorityDate/TimeAssociated DiagnosisCommentsALL THYROID STIM BEMDZHLUnpqndq11/04/2025 2:18 PM EST documented in this encounter Results * ALL THYROID STIM HORMONE (02/19/2025 2:18 PM EST)ComponentValueRef RangeTest MethodAnalysis TimePerformed AtPathologist SignatureTHYROID STIMULATING HORMONE1.3470.358 - 3.740 uIU/mLTBHSpecimen (Source)Anatomical Location / LateralityCollection Method / VolumeCollection TimeReceived Time02/19/2025 2:18 PM EST02/19/2025 2:18 PM EST Narrative [facility] - 02/19/2025 3:26 PM EST Authorizing ProviderResult TypeResult StatusCorey Juan DOCLINISYNCFinal Result Performing OrganizationAddressCity/State/ZIP CodePhone Number [facility] documented in this encounter Visit Diagnoses Not on filedocumented in this encounter Additional Health Concerns Active ProblemsNoted DateDiagnosed DateOB Kkolxwasr86/07/2025 documented as of this encounter Care Teams Team MemberRelationshipSpecialtyStart DateEnd Date Amanda Ford NP [address] [facility] [place] [address] [place] [address] PCP - GeneralFamily Pvkofxyi21/2/23documented as of this encounter
--- OUTSIDE RECORDS SUMMARY | 2025-02-25 14:00 | XMS_ITS | Clinical Summary ---
Author Organization [facility] Address [id number] [address] [place] [address] Care Team Providers Care Classroom Technology Coach Name Role Phone No Pcp, No Pcp Primary Care Provider Unavailabl e Allergies Active AllergyReactionsCriticalityNoted DateCommentsNsaids (Non-Steroidal Anti- Inflammatory Drug)10/26/2024 Medications MedicationSigDispense QuantityRefillsLast FilledStart DateEnd DateStatus wo461-hgor-lfuxw acid ( 19) 29 mg iron- 1 [...] ProblemNoted DateDiagnosed DatePrevious gastric bypass affecting , jumiatuphx19/20/2025Pregnancy headache in second ifdqjgeye83/20/2025 Hypothyroidism affecting in second fuchwxvyl04/20/2025ipolar disease during in second hphtmxweo45/20/2025Estimated Date of Delivery PlljgxcsCta73/06/2026Based on Other Basis, IUI conception date 07/31/2024 Encounters DateTypeDepartmentCare SqevYtnkrnxcepx30/23/2025Orders Only [facility] 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 Dredge Lever Operator - [place] [address] [facility] [address] [place] [address] Roslyn Griffin RN Hypothyroidism affecting in second trimester (Primary Dx); headache in second trimester; Previous gastric bypass affecting , antepartum; 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 ([facility]-HCC)02/07/2025Travel 01/04/2025Orders Only Maternal- Medicine at [facility] [address] [place] [address] Krystyna Dick RN Previous gastric bypass affecting , antepartum (Primary Dx); Hypothyroidism affecting in second trimester; 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 ([facility]-HCC); Obesity affecting in second trimester, unspecified obesity type 01/03/2025Telephone Maternal Medicine [place] [address] [facility] [address] [place] [address] Roslyn Griffin RN 01/03/20250457Lppsbf70/20/2025 2:00 PM EDTOffice Visit Maternal- Medicine at [facility] [address] [place] [address] Enrike Garcia MD 20 weeks gestation of (Primary Dx); Previous gastric bypass affecting , antepartum; Obesity affecting in second trimester, unspecified obesity type; Hypothyroidism affecting in second trimester; 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 ([facility]-HCC); headache in second udsbanbrv72/20/2025 12:36 PM EDT - 12/05/2024 11:59 PM EDTHospital Encounter [facility] [address] [place] [phone] Screening, , for anatomic survey Discharge Disposition: Home12/05/2024Orders Only Maternal- Medicine at [facility] [address] [place] [address] Chiquita Shen RN Previous gastric bypass affecting , antepartum (Primary Dx); Hypothyroidism affecting in second trimester; 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 (CMS-HCC); Obesity affecting in second trimester, unspecified obesity type; Encounter for supervision of resulting from assisted reproductive technology, xosvfzltgk01/20/8284Odneju81/19/2025Telephone Maternal- Medicine at [facility] [address] [place] [address] Chiquita Shen RN 12/04/2024Orders Only Maternal- Medicine at [facility] [address] [place] [phone] Ref Prov, Not In System 12/04/2024bstract Maternal- Medicine at [facility] [address] [place] [phone] Enrike Garcia MD from Last 3 Months Family History Medical HistoryRelationNameCommentsDiabetesFatherHypertensionFatherThyroid diseaseFatherDiabetesMaternal GrandfatherDepressionMotherObesityMotherSkin cancerMotherThyroid diseaseMotherRelationNameStatusCommentsFatherMaternal GrandfatherMotherPaternal Grandfather Social History Tobacco UseTypesPacks/DayYears UsedDateSmoking Tobacco: FormerCigarettesStarted: 2023Smokeless Tobacco: Never Tobacco Cessation:Counseling Given: Not Answered Alcohol UseStandard Drinks/WeekCommentsNot Currently0 (1 standard drink = 0.6 oz pure alcohol)ChildcareAnswerDate QtnqnaodYkhjubatgZeahdfe97/02/2021mployment AnswerDate JwhwvduwXnnusbgmngVwjmfct41/02/2021Hunger ScreeningAnswerDate RecordedWithin the past 12 months we worried whether our food would run out before we got money to buy more.Never True12/05/2024Within the past 12 months the food we bought just didn't last and we didn't have money to get more.Never True12/05/2024Purpose - LifeAnswerDate RecordedPurpose and direction in life Ivydyei5305/20/2020Estimated Date of UlvcaqssMdruzohwIuc60/06/2026ased on Other Basis, IUI conception date 07/31/2024Sex and Gender InformationValueDate RecordedSex Assigned at BirthNot on fileLegal CgmKtdntn99/06/2015 12:10 PM EDT Gender IdentityNot on fileSexual OrientationNot on file Last Filed Vital Signs Vital SignReadingTime TakenCommentsBlood Lrusguhr81/62012/05/2024 12:46 PM EDT Vjamr603212/05/2024 12:46 PM EDTTemperature--Respiratory Rate--Oxygen Saturation-- Inhaled Oxygen Concentration--Zuxipw322.6 kg (257 lb)12/05/2024 12:46 PM EDT Jpqslw762.3 cm (5' 11 )12/05/2024 12:46 PM EDTBody Mass Index35.8412/05/2024 12:46 PM EDT Plan of Treatment DateTypeDepartmentCare Team (Latest Contact Info)Imcqwsmgner72/18/2025 11:15 AM ESTAppointment [facility] [address] [place] [phone] Health MaintenanceDue DateLast DoneCommentsDepression Cryiemdpr54/17/2007dult BMI Follow Up Plan2013Pap Smear2016COVID-19 Vaccine ( season)/07/2020, 07/22/2020Influenza Wvjmtoj7612/17/2024RSV ( or age 60+ yrs) (1 - Risk 1-dose series)02/26/2025dult BMI Screening Tobacco Zpiteicjp37/20/108881/DTaP,Tdap and Td Vaccines (2 - Td or Tdap)/12/2022 Medical Devices Not on file Procedures Procedure NamePriorityDate/TimeAssociated DiagnosisCommentsUS [facility] OB FOLLOW-UP, 1 NPPVDKbnpzht14/23/2025 10:49 AM EDT Previous gastric bypass affecting , antepartum Hypothyroidism affecting in second trimester 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 (CMS-HCC) Obesity affecting in second trimester, unspecified obesity type [facility] OB FOLLOW-UP, 1 ZMVBCUilrhkw19/18/2025 3:09 PM EDT Previous gastric bypass affecting , antepartum Hypothyroidism affecting in second trimester 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 (CMS-HCC) Obesity affecting in second trimester, unspecified obesity type Encounter for supervision of resulting from assisted reproductive technology, antepartum [facility] COMPREHENSIVE ANATOMIC ZHWMEVOiroilj09/20/2025 2:42 PM EDT Screening, , for anatomic survey from Last 3 Months Results * [facility] OB FOLLOW-UP, 1 FETUS (02/07/2025 10:49 AM EDT) Only the most recent of3 resultswithin the time period is included. Anatomical RegionLateralityModalityOB-GYNUltrasoundSpecimen (Source)Anatomical Location / LateralityCollection Method / VolumeCollection TimeReceived Time 02/07/2025 10:05 AM EDT Narrative 02/07/2025 1:10 PM EDT NAME: ??MARIA EUGENIA HINDS : 1995 SEX: F Accession Number: [id number] ORDERING PHYSICIAN: ENRIKE GARCIA REFERRING PHYSICIAN: BASIM BIRMINGHAM Coding Procedures ? 61285: Ultrasound, uterus, real time with image documentation, follow up,transabdominal ? approach per fetus Indication Screening for follow-up survey, resulting from assisted reproductive technology- IUI, History of Gastric sleeve, Obesity in . History OB History ? 1. Para 0 ? [id number] Current Cell free DNA ?low risk analysis [...] (oz) ? 9 oz EFW by: ?Hadlock (SEV-IR-GN-FL) Extended Tibia ??49.1 mm 29w 3d 59% Gayle Scuba Instructor ? 5.2 mm CM ? 6.0 mm [...] Nasal bone. Heart/Thorax: 4-chamber view. 3-vessel view. 4-dmmfld-rgfegcv view. Situs. Interventricular septum.Cardiac position. ? Cardiac [...] HINDS : 1995 SEX: F Accession Number: [id number] ORDERING PHYSICIAN: ENRIKE GARCIA REFERRING PHYSICIAN: BASIM BIRMINGHAM Coding Procedures 35846: Ultrasound, uterus, real time with image documentation, follow up, transabdominal approach per fetus Indication Screening for follow-up survey, resulting from assistedreproductive technology- IUI, History of Gastric sleeve, Obesity in . History OB History 1. Para 0 [id number] Current Cell free DNA low risk analysis [...] EFW (oz) 9 oz EFW by: Hadlock (QUQ-VQ-UZ-FL) Extended Tibia 49.1 mm 29w 3d 59% Gayle Scuba Instructor 5.2 mm CM 6.0 mm 25% Nicolaides [...] Nasal bone. Heart/Thorax: 4-chamber view. 3-vessel view. 9-jeahqs-lblxipc view. Situs. Interventricular septum. Cardiac position. Cardiac [...] DateEnd Date No Pcp, [place] [address] PCP - [facility]05/20/20
--- OUTSIDE RECORDS SUMMARY | 2025-02-25 14:00 | XMS_ITS | Encounter Summary ---
Author Organization [facility] Address [address] [place] [address] Care Team Providers Care Piper Installer Name Role Phone Amanda Ford BRUSHER MACHINE Primary Care Provider Encounter Details DateTypeDepartmentCare Team (Latest Contact Info)Tnkiadgukkr21/24/2025Patient Outreach [facility] [address] [place] [phone] Jojo Be, YANDEL [address] [place], [place] [phone] Social History Tobacco UseTypesPacks/DayYears UsedDateSmoking Tobacco: Every DayCigarettes0.53 Smokeless Tobacco: NeverAlcohol UseStandard Drinks/WeekCommentsNot Currently0 (1 standard drink = 0.6 oz pure alcohol)caffeine: 1-2 cups per day teaPHQ-2Answer Date RecordedPatient Health Questionnaire-2 Hbcit406Estimated Date of CgbtindxGddeipzdFjf66/06/2026Based on Est. Date of ConceptionSex and Gender InformationValueDate RecordedSex Assigned at LrlwpKzpnqe07/04/2023 8:10 PM EDTLegal LicXtmlna77/02/2023 9:50 PM EDTGender MnqihchfIbhdga93/04/2023 8:10 PM EDTSexual OrientationNot on filedocumented as of this encounter Functional Status * Over the past 2 weeks, how often have you been bothered by any of the following problems?QuestionAnswerDate of AssessmentAuthorLittle interest or pleasure in doing thingsNot at all02/08/2025 1:09 PM Jojo Hannon LPN Feeling down, depressed, or hopelessNot at all02/08/2025 1:09 PM Jojo Hannon LPNPatient Health Questionnaire-2 Xdxec764 1:09 PM Jojo Hannon LPN documented as [...] 02/08/2025 Jaz Sanders 1995 [address] [facility] [address] Problem: ANTEPARTUM Goal: Maintain balanced nutrition and [...] (Folic acid, iron, calcium, Vit D, Choline, [place]-3 fatty acids, B vitamins, Vitamin C) , [...] ON SIGNS OF LABOR Intervention: DEVLOP AN FEEDING PLAN (INTENDED METHOD OF FEEDING-BREAST VS. BOTTLE, ETC) Intervention: MONITOR THE PRESENCE OF MOVEMENTS Intervention: Develop a plan Intervention: Ensure all necessary items are able to be obtained by date of delivery (crib, diapers, car seat, bottles, etc.) Intervention: Ensure a billing clerk has been selected for the , Problem: [...] the mother on how to support the infant and position herself comfortably during , Problem: Goal: Check Up Intervention: The first checkup should occur within several weeks after delivery and mayinclude several visits to monitor the mother???s mood, discuss contraception plans, and ensure healing from childbirth. , Problem: Goal: Primary care for Intervention: Discuss the importance of care, including well early childhood assistant and immunization schedules, and ensure the patient is connected to a well early childhood assistant provider. Intervention: Establishment of feeding pattern Intervention: Appropriate maternal- bonding , and Problem: Goal: Promotion of and bonding Intervention: CONSULT A SUPERVISOR REINFORCED STEEL PLACING OR NURSE TO EDUCATE THE MOTHER ON HOW TO SUPPORT THE INFANT AND POSITION HERSELF COMFORTABLY DURING Intervention: Educate on methods to reduce breast engorgement and prevent cracked nipples and breast discomfort. documented in this encounter Plan of Treatment DateTypeDepartmentCare Team (Latest Contact Info)Qbhxvhirdfi53/19/2025 10:30 AM ESTRoutine [facility] [address] [place] [phone] Jojo Ames PA [address] [place] [address] 08/21/2025 9:30 AM EDTOffice Visit [facility] [place] [facility] [address] [place] [address] Darleen Sinclair MD [address] [place] [address] documented as of this encounter Goals GoalPatient Goal TypeAssociated ProblemsRecent ProgressPatient-Stated?Author Reminders Care PlanOB RemindersNoOpen Scheduling, Backgrounddocumented as of this encounter Visit Diagnoses Not on filedocumented in this encounter Additional Health Concerns Active ProblemsNoted DateDiagnosed DateOB Fednfosjk29/07/2025 documented as of this encounter Care Teams Team MemberRelationshipSpecialtyStart DateEnd Date Amanda Ford NP [address] [place] [address] PCP - GeneralFamily Ytwqswgn76/2/23documented as of this encounter
--- OUTSIDE RECORDS SUMMARY | 2025-02-25 14:00 | XMS_ITS | Clinical Summary ---
Author Organization [facility] Address [address] [place] [address] Care Team Providers Care Tierce Filler Name Role Phone Amanda Ford ILLUMINATOR Primary Care Provider Allergies Active AllergyReactionsCriticalityNoted ExzvIjmwdvfmGsadfvUpnqkjuXixb61/02/2023 Patient had gastric bypass surgery in April [...] 60 capsule 5Active Active Problems ProblemNoted DateDiagnosed EkwoLojkovwshpe62/12/2024Estimated Date of FiwpdmxeQparvhrgQou76/06/2026Based on Est. Date of Conception Encounters DateTypeDepartmentCare SthaNbzmwksvsod87/04/2025 1:00 PM ESTRoutine [facility] [address] [place] [address] Basim Martinez, Third trimester ([facility]); 31 weeks gestation of ([facility]); TSH (thyroid-stimulating hormone deficiency); H/O gastric axsgtc4802/19/2025linisync Result Encounter [facility] External Department Unsolicited Basim Martinez, 02/19/2025amboo flowsheet [facility] [place] [address] Basim Martinez, 02/12/2025bstract [facility] [address] [place] [address] Jojo Be LPN 02/12/20250683Rdoyzf57/24/2025Patient Outreach [facility] [address] [place] [address] Jojo Be LPN 02/08/2025bstract [facility] [address] [facility] [address] [place] [address] [phone] Kerrie Babcock MA 02/07/2025bstract [facility] [address] [place] [address] Basim Martinez, 02/06/2025 2:30 PM EDTRoutine [facility] [place] [address] [phone] Jojo Ames PA Third trimester ([facility]); 29 weeks gestation of ([facility])02/06/2025amboo flowsheet [facility] [address] [place] [address] Jojo Ames PA 01/31/2025bstract [facility] [address] [place] [address] Basim Martinez, DO 01/30/2025 2:30 PM EDTAncillary Procedure [facility] [address] [facility] [place] [phone] TSH (thyroid-stimulating hormone deficiency)01/30/20258301Unqruq61/06/2025Telephone [facility] [address] [place] [address] Marsha Asif MA 01/16/2025 11:20 AM EDTRoutine [facility] [address] [place] [phone] Mima Duenas, TY 26 weeks gestation of ([facility]); Second trimester ([facility]); TSH (thyroid-stimulating hormone deficiency)01/16/2025amboo flowsheet [facility] [address] [place] [phone] Mima Duenas, TY 01/11/2025linisync Result Encounter [facility] External Department Unsolicited Basim Martinez, DO 01/11/2025Telephone [facility] [place] [facility] [address] [place] [address] Basim Martinez, DO 01/10/2025Telephone [facility] [address] [place] [address] Jojo Ames PA 01/09/2025linisync Result Encounter [facility] External Department Unsolicited Jojo Ames PA 01/08/2025Telephone [facility] [address] [facility] [place] [address] Jojo Ames PA 01/07/2025bstract [facility] [address] [facility] [place] [address] Basim Martinez, DO 12/19/2024 10:00 AM EDTRoutine [facility] [address] [place] [address] Jojo Ames PA 22 weeks gestation of ([facility]); Second trimester ([facility]); Thyroid disease ; H/O gastric sleeve; H/O iron deficiency anemia; Diabetes mellitus ylluyizmh30/03/2025amboo flowsheet [facility] [address] [place] [address] Jojo Ames PA 12/15/2024linisync Result Encounter [facility] External Department Unsolicited Basim Martinez, DO 12/12/20243278Bcbqpl39/20/2025External Result Encounter [facility] [address] [place] [address] Basim Martinez, DO 12/04/2024 8:30 AM EDTAncillary Procedure [facility] [address] [place] [address] Screening, , for anatomic survey ([facility])12/02/2024External Result Encounter [facility] External Department Unsolicited Eduardo Cruz, DO 11/30/2024Telephone [facility] [address] [place] [address] Lisa Campbell LPN from Last 3 Months Immunizations ImmunizationAdministration DatesNext QssXtqi2512/25/2022 Family History Medical HistoryRelationNameCommentsDiabetesFatherGreg spearsHypertensionFather Delbert spearsThyroid diseaseFatherGreg spearsObesityMotherMary spearsSkin cancer MotherMary spearsThyroid diseaseMotherMary spearsDiabetesPaternal Grandfather Ayaan FristevanRelationNameStatusCommentsFatherGreg spearsAliveMotherMary nunez AlivePaternal GrandfatherLarry FritzSisterAlive Social History Tobacco UseTypesPacks/DayYears UsedDateSmoking Tobacco: Every DayCigarettes0.53 Smokeless Tobacco: Never Tobacco Cessation:Ready to Q uit: Not Asked; Counseling Given: Not Answered Alcohol UseStandard Drinks/WeekCommentsNot Currently0 (1 standard drink = 0.6 oz pure alcohol)caffeine: 1-2 cups per day teaPHQ-2AnswerDate RecordedPatient Health Questionnaire-2 Tyqsh165Estimated Date of Delivery YvhyakrdKox97/06/2026ased on Est. Date of ConceptionSex and Gender Information ValueDate RecordedSex Assigned at OenarYdmvww34/04/2023 8:10 PM EDTLegal Sex Bbdazj5601/17/2023 9:50 PM EDTGender DhfwfunePahjlx42/04/2023 8:10 PM EDTSexual OrientationNot on file Last Filed Vital Signs Vital SignReadingTime TakenCommentsBlood Ofjaofxw334/7611 1:26 PM EST Ehmzd128708/22/2024 10:04 AM EDTTemperature--Respiratory Hmhw460108/22/2024 10:04 AM EDTOxygen Enlsoupger05%08/22/2024 10:04 AM EDTInhaled Oxygen Concentration-- Yinnox801 kg (287 lb)02/19/2025 1:26 PM USFQtzvsr860.3 cm (5' 11 )08/22/2024 10:04 AM EDTBody Mass Index40.03008/22/2024 10:04 AM EDT Plan of Treatment DateTypeDepartmentCare Team (Latest Contact Info)Jmvtsbrbbpc28/19/2025 10:30 AM ESTRoutine [facility] [address] [place] [address] Jojo Ames PA [address] [place] [address] 08/21/2025 9:30 AM EDTOffice Visit [facility] [place] [facility] [address] [place] [address] Darleen Sinclair MD [address] [place] [address] Health MaintenanceDue DateLast DoneCommentsCOVID-19 Vaccine (2024- season) /07/2020, 07/22/2020Influenza Vaccine (#1)2024Pneumococcal Vaccine: Pediatrics (0 to 5 Years) and At-Risk Patients (6 to 64 Years)Aged Out No longer eligible based on patient's age to complete this topic Goals GoalPatient Goal TypeAssociated ProblemsRecent ProgressPatient-Stated?Author Reminders Care PlanOB RemindersNoOpen Scheduling, Background Procedures Procedure NamePriorityDate/TimeAssociated DiagnosisCommentsALL THYROID STIM NUYKPRMDqmtmge92/04/2025 2:18 PM EST POCT URINALYSIS YYASDOGJIzjvjre23/04/2025 1:26 PM EST Third trimester ([facility]) POCT URINALYSIS IJQAHGQJVbnonse81/22/2025 2:49 PM EDT 29 weeks gestation of ([facility]) US OB FOLLOW UP TRANSABDOMINAL CCMRDINOLaafzlt98/15/2025 3:10 PM EDT TSH (thyroid-stimulating hormone deficiency) POCT URINALYSIS NFOWDADGQtdfsna45/01/2025 11:40 AM EDT 26 weeks gestation of ([facility]) ALL THYROID STIM KTCNOUXJdvvnmw09/26/2025 2:48 PM EDT GLUCOSE 1 EIISOrzaxkb95/24/2025 12:00 PM EDT ALL CBC WITH AUTO LONVGyffsnl98/24/2025 12:00 PM EDT POCT URINALYSIS PKNMSMULIcbkaqe22/03/2025 10:11 AM EDT 22 weeks gestation of ([facility]) Second trimester ([facility]) [facility] URINE MICROSCOPIC QPCUWmecqkv19/30/2025 11:24 PM EDT TBH UA (CLEAN/CATCH) ADJUNCT PROFESSOR OF U.S. HISTORY/MICRO IF IND.Kzgeflg8012/15/2024 11:24 PM EDT US OB 14+ WEEKS ANATOMY SCAN12/05/2024 4:12 PM EDT US OB 14+ WEEKS ANATOMY RAUBHxvjqqh12/19/2025 9:26 AM EDT Screening, , for anatomic survey ([facility]) URINALYSIS BDKYQAVWPJ72/17/2025 11:40 PM EDT from Last 3 Months Results * ALL THYROID STIM HORMONE (02/19/2025 2:18 PM EST) Only the most recent of2 resultswithin the time period is included. ComponentValueRef RangeTest MethodAnalysis TimePerformed AtPathologist Signature THYROID STIMULATING HORMONE1.3470.358 - 3.740 uIU/mLTBHSpecimen (Source) Anatomical Location / LateralityCollection Method / VolumeCollection Time Received Time02/19/2025 2:18 PM EST02/19/2025 2:18 PM EST Narrative [facility] - 02/19/2025 3:26 PM EST Authorizing ProviderResult TypeResult StatusCorey Juan DOCLINISYNCFinal Result Performing OrganizationAddressCity/State/ZIP CodePhone Number [facility] * POCT urinalysis dipstick manually resulted (02/19/2025 1:26 PM EST) Only the most recent of4 resultswithin the [...] Location / LateralityCollection Method / VolumeCollection TimeReceived VcpfFjpwv83/04/2025 1:26 PM EST Narrative Authorizing ProviderResult TypeResult [...] BY: Sravan Olivo MD Authorizing ProviderResult TypeResult StatusKrjuan antonio Duenas [facility] PROCEDURESFinal Result * GLUCOSE 1 HOUR (01/09/2025 12:00 PM EDT)ComponentValueRef RangeTest Method Analysis TimePerformed AtPathologist SignatureGLUCOSE 1 MVVF437<130 mg/dLTBH Specimen (Source)Anatomical Location / LateralityCollection Method / Volume Collection TimeReceived Time01/09/2025 12:00 PM EDT01/09/2025 12:02 PM EDT Narrative [facility] - 01/09/2025 12:55 PM EDT Authorizing ProviderResult TypeResult StatusAmy Kwaku FINE BLOOD ORDERABLES Final ResultPerforming OrganizationAddressCity/State/ZIP CodePhone Number JEREMY [facility] * (ABNORMAL) ALL CBC WITH AUTO DIFF (01/09/2025 12:00 PM EDT)ComponentValueRef RangeTest MethodAnalysis TimePerformed AtPathologist SignatureTBH WBC11.8(H) 4.0 - 11.0 10 3/uLTBHTBH RBC4.06(L)4.20 - 5.40 10 6/uLTBHTBH HGB12.012.0 - 16.0 g/dLTBHTBH HCT35.6(L)36.0 - 48.0 %TBHTBH MCV87.781.0 - 99.0 fLTBHTBH MCH 29.626.7 - 34.0 pgTBHTBH MCHC33.729.9 - 35.2 g/dLTBHTBH RDW13.211.0 - 15.0 % TBHTBH QJE207074 - 450 10 3/uLTBHTBH MPV8.7(L)9.5 - 13.5 [...] 12:00 PM EDT01/09/2025 12:02 PM EDT Narrative JEREMY - 01/09/2025 12:31 PM EDT Authorizing ProviderResult TypeResult StatusAmy [place] PACLINISYNCFinal Result Performing OrganizationAddressCity/State/ZIP CodePhone Number [facility] * [facility] URINE MICROSCOPIC ONLY (12/15/2024 [...] ProviderResult TypeResult StatusCorey Juan DOCLINISYNCFinal Result Performing OrganizationAddDepartment of Veterans Affairs Medical Center-Wil[facility] Barrety/State/ZIP CodePhone Number [facility] * (ABNORMAL) [facility] UA (CLEAN/CATCH) ADJUNCT PROFESSOR OF U.S. HISTORY/MICRO IF IND. (12/15/2024 11:24 PM EDT) ComponentValueRef RangeTest MethodAnalysis TimePerformed AtPathologist SignatureCOLOR URINELT. YELLOWYELLOWTBHCLARITY URINECLEARCLEARTBHSPECIFIC GRAVITY URINE1.0151.005 - 1.025TBHPH URINE5.55.0 - 9.0TBHPROTEIN URINENEGATIVE NEG/TRACE mg/dLTBHGLUCOSE URINE UANEGATIVENEGATIVE mg/dLTBHBILIRUBIN URINE NEGATIVENEGATIVETBHKETONES URINENEGATIVENEGATIVE mg/dLTBHBLOOD URINESMALL(A) NEGATIVETBHNITRITE URINENEGATIVENEGATIVETBHUROBILINOGEN URINE0.20.2 - 1.0 EU/dLTBHLEUKOCYTE ESTERASE URINENEGATIVENEGATIVETBHURINE MICROSCOPIC INDICATED YESTBHSpecimen (Source)Anatomical Location / LateralityCollection Method / VolumeCollection TimeReceived Time12/15/2024 11:24 PM EDT12/15/2024 11:40 PM EDT Narrative [facility] - 12/15/2024 11:50 PM EDT Authorizing ProviderResult TypeResult StatusCorey Juan DOCLINISYNCFinal Result Performing OrganizationAddressCity/State/ZIP CodePhone Number [facility] * US OB 14+ weeks anatomy scan (12/05/2024 4:12 PM EDT) Only the most recent of2 resultswithin the time period is included. Anatomical RegionLateralityModalityBodyUltrasoundSpecimen (Source)Anatomical Location / LateralityCollection Method / VolumeCollection TimeReceived Time 12/05/2024 4:12 PM EDT Narrative 12/05/2024 4:11 PM EDT THIS EXAM WAS PERFORMED AT [facility] NAME: ??MARIA EUGENIA HINDS : 1995 SEX: F Accession Number: [id number] ORDERING PHYSICIAN: ENRIKE LINDQUIST REFERRING PHYSICIAN: BASIM MARTINEZ Coding Procedures ? 93703: Ultrasound, uterus, real time with image documentation, and maternal evaluation ? plus detailed anatomic examination, transabdominal approach;single or first gestation ? 61356: Transvaginal Ultrasound (OB) Indication Screening for Anatomic Survey, Screening for cervical length, resulting from assisted reproductive technology- IUI, History of Gastric sleeve, Obesity in . History OB History ? 1. Para 0 ? [id number] Current Cell free DNA ?low risk analysis [...] (oz) ? 14 oz EFW by: ?Hadlock (NWX-GN-YH-FL) Extended Tibia ??27.0 mm 19w 5d 43% [employer] ? 8.2 mm CM ? 4.2 mm [...] Thorax RVOT view. LVOT view. 3-vessel view. 2-jgoxoe-voaguec view. Bicaval view. Ductal arch view. Great [...] MVP measures 5.2 cm. Recommendations Please see M documentation from today. The patient is scheduled in four to six week(s) to complete anatomic survey. Subsequent follow up or other follow up as clinically determined by primary OB provider unless otherwise specified by [facility]. Results forwarded to ordering provider so they can follow up with the patient as necessary. The copy-to physician of this order is BASIM Hrering The ordering physician of this order is ENRIKE Alfaro Procedure Note Radiology, Radiologist, MD - 12/05/2024 THIS EXAM WAS PERFORMED AT [facility] NAME: MARIA EUGENIA HINDS : 1995 SEX: F Accession Number: [id number] ORDERING PHYSICIAN: ENRIKE LINDQUIST REFERRING PHYSICIAN: BASIM MARTINEZ Coding Procedures 29180: Ultrasound, uterus, real time with image documentation, and maternal evaluation plus detailed anatomic examination, transabdominalapproach;single or first gestation 42066: Transvaginal Ultrasound (OB) Indication Screening for Anatomic Survey, Screening for cervical length, Pregnancyresulting from assisted reproductive technology- IUI, History of Gastric sleeve, Obesity in . History OB History 1. Para 0 [id number] Current Cell free DNA low risk analysis [...] EFW (oz) 14 oz EFW by: Hadlock (KJG-WS-HR-FL) Extended Tibia 27.0 mm 19w 5d 43% [employer] Worker 8.2 mm CM 4.2 mm 24% Nicolaides [...] Thorax RVOT view. LVOT view. 3-vessel view. 3-umamla-ouigddt view. Bicaval view. Ductal arch view. Great [...] MVP measures 5.2 cm. Recommendations Please see M documentation from today. The patient is scheduled in four to six week(s) to complete anatomicsurvey. Subsequent follow up or other follow up as clinically determined byprimary OB provider unless otherwise specified by [facility]. Results forwarded to ordering provider so they can follow up with thepatient as necessary. The copy-to physician of this order is BASIM Herring The ordering physician of this order is ENRIKE Alfaro Authorizing ProviderResult TypeResult StatusCorey Juan [facility] OB US PROCEDURES Final Result * (ABNORMAL) Urinalysis with reflex microscopic (12/02/2024 11:40 PM EDT) ComponentValueRef RangeTest MethodAnalysis TimePerformed AtPathologist SignatureCOLOR,URINELight-TfqxwmPtskjs37/18/2025 12:00 [facility]trAPPEARANCE,WXNEAVfblxRcsap15/18/2025 12:00 AM [facility] CtrSPECIFICY GRAVITY,URINE1.0171.001 - 1.09548 12:00 AM [facility]trPH,URINE5.55.0 - 9.008 12:00 AM [facility] CtrLEUKOCYTE ESTERASE,URINENegativeNegative 12/03/2024 12:00 AM [facility] CtrNITRITE,URINENegative Xfogfuxk64/18/2025 12:00 AM [facility] CtrPROTEIN,URINE NegativeNegative mg/dL12/03/2024 12:00 AM [facility] GLUCOSE,URINE (UA)NormalNormal mg/dL12/03/2024 12:00 AM [facility] CtrKETONES,VDJRNJsgcwsfqUdcngazt66/18/2025 12:00 AM [facility] CtrUROBILINOGEN,URINENormalNormal mg/dL12/03/2024 12:00 AM [facility] CtrBILIRUBIN,JLGSUEiqarxjtBnyymeaq83/18/2025 12:00 AM [facility] CtrOCCULT BLOOD,URINE3+Negative 12/03/2024 12:00 AM [facility] CtrRBC,URINE1-20 - 4 [HPF] 12/03/2024 12:17 AM [facility] CtrWBC,URINE1-20 - 4 [HPF] 12/03/2024 12:17 AM [facility] CtrSQUAMOUS EPITHELIAL CELL,URINE1-20 - 2 [HPF]12/03/2024 12:17 AM [facility] BACTERIA,URINE1+None Seen [HPF]12/03/2024 12:17 AM [facility] CtrHYALINE CASTS,URINENone0 - 8 [LPF]12/03/2024 12:17 AM [facility] CtrMUCUS,URINE1+(AA)[LPF]12/03/2024 12:17 AM [facility] CtrSpecimen (Source)Anatomical Location / Laterality Collection Method / VolumeCollection TimeReceived MmnhMkgve78/17/2025 11:40 PM EDT12/02/2024 11:49 PM EDT [facility] - 12/03/2024 12:17 AM EDT Comment c/o urinary symptoms or increased blood pressure Name Collection Type:: Voided Authorizing ProviderResult TypeResult StatusRichard A Visci DOLAB URINE ORDERABLESFinal ResultPerforming OrganizationAddressCity/State/ZIP CodePhone Number [facility] [address] [place] [address], [facility] [address] [place] [address] from Last 3 Months Additional Health Concerns Active ProblemsNoted DateDiagnosed DateOB Xpijcwcdm19/07/2025 Insurance Care Teams Team MemberRelationshipSpecialtyStart DateEnd Date Amanda Ford NP [address] [place] [address] PCP - GeneralFamily Ddegyqfj20/2/23
[2025-02-25 14:23] VITALS: BP 118/62; PULSE 72
== END 2025-02-25 14:46 | disposition home or self-care (01) ==
LOC: US 13:56 → FBC 13:57
PROVIDERS: PCP Nurse Practitioner Family; Visit Provider Obstetrics & Gynecology
DX: O26.893 Other specified pregnancy related conditions, third trimester (principal); Z3A.31 31 weeks gestation of pregnancy; E03.9 Hypothyroidism, unspecified
CPT/HCPCS: 76818

== ENCOUNTER 2025-02-28 14:03 | Outpatient (OUT) | payer MEDICAID, SELFPAY ==
--- OUTSIDE RECORDS SUMMARY | 2024-04-25 08:30 | XMS_ITS ---
Author Organization [facility] Address [address] [place] [address] Care Team Providers Care Jig Bore Tool Maker Name Role Phone Jennifer Hahn Primary Care Provider [phone] Julieta Sher [phone] REASON FOR VISIT 3 month f/u Encounters Encounter Location Date Provider Diagnosis [facility] [address] [place] [address] 04/25/2024 Julieta Jefferson Plan Of Treatment Next Appt Details Provider Name:Tabitha levin, 03/29/2025 10:00:00 AM, [address] [place], [address], Progress Notes * GUZMAN DEL CIDDOB: 5 (29 yo F)Acc No.[id number]:04/25/2024 Behavioral Health Patient: GUZMAN AMES :?Julieta JeffersonDOB:1995???Age:29 Y???Sex:Female Date:04/25/2024Phone:[phone]:[address], [place], [id number]:Jennifer Hahn Subjective: * Chief Complaints: * 3 month f/u * Electronic signature of NELIDA Newell FNP on 02/28/2025 at 02:08 PM EST Sign off status: Pending * Provider: Adin Jefferson Date: 0 04/25/2024 Generated for Printing/Faxing/eTransmitting on:?02/28/2025 02:08 PM EST
--- OUTSIDE RECORDS SUMMARY | 2024-07-25 05:30 | XMS_ITS ---
Author Organization [facility] Address [address] [place] [address] Care Team Providers Care Tugboat Operator Name Role Phone Jennifer Hahn Primary Care Provider Julieta Jefferson [phone] REASON FOR VISIT 3 month f/u Encounters Encounter Location Date Provider Diagnosis [facility] [address] [place] [address] 07/25/2024 Julieta Jefferson Plan Of Treatment Next Appt Details Provider Name:Tabitha Chaparro J[facility], 03/29/2025 10:00:00 AM, [address] [place], [address], Progress Notes * GUZMAN DEL CIDDOB: 5 (29 yo F)Acc No.[id number]:07/25/2024 Behavioral Health Patient: Adin GUZMAN LEE :?Julieta JeffersonDOB:1995???Age:29 Y???Sex:Female Date:07/25/2024Phone:[phone]:[address], [place] KT-[id number]:Jennifer Hahn Subjective: * Chief Complaints: * 3 month f/u * Electronic signature of NELIDA Newell FNP on 02/28/2025 at 02:07 PM EST Sign off status: Pending * Provider: Adin Jefferson Date: 0 07/25/2024 Generated for Printing/Faxing/eTransmitting on:?02/28/2025 02:07 PM EST
--- OUTSIDE RECORDS SUMMARY | 2025-02-19 13:00 | XMS_ITS | Encounter Summary ---
Author Organization [facility] Address [address] [place] [address] Care Team Providers Care Field Counsel Name Role Phone Amanda Ford TELEMARKETER SUPERVISOR Primary Care Provider Reason for Visit * ReasonCommentsRoutine Visit Encounter Details DateTypeDepartmentCare Team (Latest Contact Info)Yupfyehqvgr97/04/2025 1:00 PM ESTRoutine [facility] [address] [phone] Les Martinez DO [address] [place] [id number] Third trimester ([facility]); 31 weeks gestation of ([facility]); TSH (thyroid-stimulating hormone deficiency); H/O gastric sleeve Social History Tobacco UseTypesPacks/DayYears UsedDateSmoking Tobacco: Every DayCigarettes0.53 Smokeless Tobacco: NeverAlcohol UseStandard Drinks/WeekCommentsNot Currently0 (1 standard drink = 0.6 oz pure alcohol)caffeine: 1-2 cups per day teaPHQ-2Answer Date RecordedPatient Health Questionnaire-2 Zehqc469Estimated Date of TaibpwasAhghcgupOzr49/06/2026Based on Est. Date of ConceptionSex and Gender InformationValueDate RecordedSex Assigned at QybuyUppxzq61/04/2023 8:10 PM EDTLegal RjhMhvbmk45/05/2022 9:50 PM EDTGender CfypnzmoFluenf79/04/2023 8:10 PM EDTSexual OrientationNot on filedocumented as of this encounter Last Filed Vital Signs Vital SignReadingTime TakenCommentsBlood Wwfsfkbu720/7611 1:26 PM EST Pulse--Temperature--Respiratory Rate--Oxygen Saturation--Inhaled Oxygen Concentration--Xpuunw302 kg (287 lb)02/19/2025 1:26 PM ESTHeight--Body Mass Index40.03008/22/2024 10:04 AM EDTdocumented in this encounter Progress Notes * Alana Valverde, DIRECTOR PATIENT - 02/19/2025 1:00 PM EST Reason for Appointment: Patient ID: [...] had gastric bypass surgery in April 2020. Other Reaction(s): Instructed not to take NSAIDS by PCP d/t weight loss surgery PROBLEMS Active Ambulatory Problems Diagnosis Date Noted [...] nursing note reviewed. Exam conducted with a manufacturing engineer paint present. Vitals: Estimated body mass index is 40.03 kg/m?? as calculated from the following: Height as of 08/22/24: 5' 11 . Weight as of this encounter: 287 lb. BP: 128/76 No LMP recorded. Patient is . Assessment/Plan ICD-10-CM 1. Third trimester ([facility]) Z34.93 POCT urinalysis dipstick manually resulted 2. 31 weeks gestation of ([facility]) Z3A.31 3. TSH (thyroid-stimulating hormone deficiency) E03.8 US biophysical profile w non stress test 4. H/O gastric sleeve Z90.3 Return OB: Patient presents today for a routine obstetrics appointment. Patient is currently 31w0d . Patient states she is doing well but has complaints of being tired due to current . Patient has verbalizes frequent movement. labor precautions was discussed/given and patient was instructed to perform kick counts three times a day. Orders Placed This Encounter Procedures US biophysical profile w non stress test POCT urinalysis dipstick manually resulted Follow Up: Patient is to return to office in 2 week for routine OB appointment. Documented by Alana Valverde LPN on behalf of: Les Martinez DO documented in this encounter Plan of Treatment DateTypeDepartmentCare Team (Latest Contact Info)Cimiunvyoti02/18/2025 2:20 PM ESTRoutine [facility] [address] [phone] Jojo Ames PA [address] [place] [address] 08/21/2025 9:30 AM EDTOffice Visit [facility] [address] [place] [address] Darleen Sinclair MD [address] [place] [address] NameTypePriorityAssociated DiagnosesOrder ScheduleUS biophysical profile w non stress testImagingRoutine TSH (thyroid-stimulating hormone deficiency) Expected: 02/19/2025 (Approximate), Expires: 08/19/2025documented as of this encounter Goals GoalPatient Goal TypeAssociated ProblemsRecent ProgressPatient-Stated?Author Reminders Care PlanOB RemindersNoOpen Scheduling, Backgrounddocumented as of this encounter Procedures Procedure NamePriorityDate/TimeAssociated DiagnosisCommentsPOCT URINALYSIS FBKBKTDIMzdkxxs26/04/2025 1:26 PM EST Third trimester ([facility]) documented in this encounter Results * POCT urinalysis dipstick manually resulted (02/19/2025 1:26 PM EST)Component ValueRef RangeTest MethodAnalysis TimePerformed AtPathologist SignatureColor, UAYellowClarity, UAClearGlucose, UANegativeNegative - 2000(110) ++++ mg/dL Bilirubin, UANegativeNegative - 4(70) +++ mg/dLKetones, UANegativeNegative - 160(16) ++++ mg/dLSpec Grav, UA1.0201 - 1.03Blood, UANegativeNegative - 50 Yehuda/mcLpH, UA6.05 - 9Protein, UANegativeNegative - 2000(20) ++++ mg/dL Urobilinogen, UA1.00.2 - 12 mg/dLLeukocytes, UANegativeNegative - 500+++ Kourtney/mcLNitrite, UANegativeNegative - PositiveSpecimen (Source)Anatomical Location / LateralityCollection Method / VolumeCollection TimeReceived Time Urine02/19/2025 1:26 PM EST Narrative Authorizing ProviderResult TypeResult StatusCorey Juan DOPOINT OF CARE TEST ENTER/EDIT ORDERABLESFinal Result documented in this encounter Visit Diagnoses Diagnosis Third trimester ([facility]) state, incidental 31 weeks gestation of ([facility]) TSH (thyroid-stimulating hormone deficiency) Other specified acquired hypothyroidism H/O gastric sleeve documented in this encounter Additional Health Concerns Active ProblemsNoted DateDiagnosed DateOB Krmkwxphe15/07/2025 documented as of this encounter Care Teams Team MemberRelationshipSpecialtyStart DateEnd Date Amanda Ford NP [facility] [place] [address] PCP - GeneralFamily Psvcqfkr77/2/23documented as of this encounter
--- OUTSIDE RECORDS SUMMARY | 2025-02-28 14:07 | XMS_ITS | Encounter Summary ---
Author Organization [facility] Address [address] [place] [address] Care Team Providers Care Distribution Engineer Name Role Phone Amanda Ford POWER EQUIPMENT TECHNOLOGY INSTRUCTOR Primary Care Provider Encounter Details DateTypeDepartmentCare Team (Latest Contact Info)Boqrzegyucv44/04/2025Bamboo flowsheet [facility] [address] [place] [phone] Les Martinez DO [address] [facility] [address], [facility] Social History Tobacco UseTypesPacks/DayYears UsedDateSmoking Tobacco: Every DayCigarettes0.53 Smokeless Tobacco: NeverAlcohol UseStandard Drinks/WeekCommentsNot Currently0 (1 standard drink = 0.6 oz pure alcohol)caffeine: 1-2 cups per day teaPHQ-2Answer Date RecordedPatient Health Questionnaire-2 Dgkyc932Estimated Date of YqworcpqPqydxacpYvz93/06/2026Based on Est. Date of ConceptionSex and Gender InformationValueDate RecordedSex Assigned at EldsmVwbrle98/04/2023 8:10 PM EDTLegal VxdXmwmor08/02/2023 9:50 PM EDTGender DzyfkvcxWqjnjo46/04/2023 8:10 PM EDTSexual OrientationNot on filedocumented as of this encounter Plan of Treatment DateTypeDepartmentCare Team (Latest Contact Info)Ewzmbltxqnu76/18/2025 2:20 PM ESTRoutine [facility] [address] [place] [address] Jojo Ames PA [address] [place] [address] 08/21/2025 9:30 AM EDTOffice Visit [facility] [place] [facility] [address] [place] [address] Darleen Sinclair MD [address] [place] [address] documented as of this encounter Goals GoalPatient Goal TypeAssociated ProblemsRecent ProgressPatient-Stated?Author Reminders Care PlanOB RemindersNoOpen Scheduling, Backgrounddocumented as of this encounter Visit Diagnoses Not on filedocumented in this encounter Additional Health Concerns Active ProblemsNoted DateDiagnosed DateOB Tjxxoungr21/07/2025 documented as of this encounter Care Teams Team MemberRelationshipSpecialtyStart DateEnd Date Amanda Ford NP [address] [facility] [place] [address] PCP - GeneralFamily Muzxojqy81/2/23documented as of this encounter
--- OUTSIDE RECORDS SUMMARY | 2025-02-28 14:08 | XMS_ITS | Encounter Summary ---
Author Organization [facility] Address [address] [place] [address] Care Team Providers Care Brand Development Manager Name Role Phone Amanda Ford CLERICAL ASSISTANT Primary Care Provider Encounter Details DateTypeDepartmentCare Team (Latest Contact Info)Ugikisrlyqj00/04/2025linisync Result Encounter [facility] External Department Unsolicited Les Martinez, DO [address] [facility] [address] [place], [place] [address] Social History Tobacco UseTypesPacks/DayYears UsedDateSmoking Tobacco: Every DayCigarettes0.53 Smokeless Tobacco: NeverAlcohol UseStandard Drinks/WeekCommentsNot Currently0 (1 standard drink = 0.6 oz pure alcohol)caffeine: 1-2 cups per day teaPHQ-2Answer Date RecordedPatient Health Questionnaire-2 Zynol354Estimated Date of LuxhhnmqOoasgjezJyf99/06/2026Based on Est. Date of ConceptionSex and Gender InformationValueDate RecordedSex Assigned at BcqwpAxszwb04/04/2023 8:10 PM EDTLegal EmrVactaj40/02/2023 9:50 PM EDTGender ZgdtayvqEqkord43/04/2023 8:10 PM EDTSexual OrientationNot on filedocumented as of this encounter Plan of Treatment DateTypeDepartmentCare Team (Latest Contact Info)Vrdbanicgqv26/18/2025 2:20 PM ESTRoutine [facility] [address] [address] Jojo Ames PA [address] [facility] [place] [address] 08/21/2025 9:30 AM EDTOffice Visit [facility] [place] [facility] [address] [place] [address] Darleen Sinclair MD [address] [place] [address] documented as of this encounter Goals GoalPatient Goal TypeAssociated ProblemsRecent ProgressPatient-Stated?Author Reminders Care PlanOB RemindersNoOpen Scheduling, Backgrounddocumented as of this encounter Procedures Procedure NamePriorityDate/TimeAssociated DiagnosisCommentsALL THYROID STIM QFHSBNOGnvtbxe52/04/2025 2:18 PM EST documented in this encounter Results * ALL THYROID STIM HORMONE (02/19/2025 2:18 PM EST)ComponentValueRef RangeTest MethodAnalysis TimePerformed AtPathologist SignatureTHYROID STIMULATING HORMONE1.3470.358 - 3.740 uIU/mLTBHSpecimen (Source)Anatomical Location / LateralityCollection Method / VolumeCollection TimeReceived Time02/19/2025 2:18 PM EST02/19/2025 2:18 PM EST Narrative [facility] - 02/19/2025 3:26 PM EST Authorizing ProviderResult TypeResult StatusCorey Juan DOCLINISYNCFinal Result Performing OrganizationAddressCity/State/ZIP CodePhone Number [facility] documented in this encounter Visit Diagnoses Not on filedocumented in this encounter Additional Health Concerns Active ProblemsNoted DateDiagnosed DateOB Oioehswja03/07/2025 documented as of this encounter Care Teams Team MemberRelationshipSpecialtyStart DateEnd Date Amanda Ford NP [address] [facility] [place] [address] [place] [address] PCP - GeneralFamily Xqsajrku71/2/23documented as of this encounter
--- OUTSIDE RECORDS SUMMARY | 2025-02-28 14:08 | XMS_ITS | Clinical Summary ---
Author Organization [facility] Address [address] [place] [address] Care Team Providers Care Ash Collector Name Role Phone Unavailable Primary Care Provider [...] RecordedNational Score (1-100), lower number is lower bhbu995802/28/2024State Score (1-10), lower number is lower ipau51504/29/2023 Data from: https://www.neighborhoodatlas.medicine.[facility]/. Last address used for vudrnakpfgo739 self yylaihuqj53/12/2024CommentsYesSex and Gender InformationValueDate RecordedSex Assigned at BirthNot on fileLegal SexFemale 07/13/2023 12:45 PM EDTGender IdentityNot on fileSexual OrientationNot on file Last Filed Vital Signs Vital SignReadingTime TakenCommentsBlood Pressure--Pulse--Temperature-- Respiratory Rate--Oxygen Saturation--Inhaled Oxygen Concentration--Cenycn36.3 kg (216 lb 11.4 oz)02/28/2024 2:03 PM UQIXjjkph503.3 cm (5' 11 )02/28/2024 2:03 PM ESTBody Mass Index30.23104/29/2023 2:03 PM EST Plan of Treatment Health MaintenanceDue DateLast DoneCommentsAnxiety Jpvvicflb81/17/2013Depression Etloexkhy37/17/2013Hepatitis B Vaccine (1 of 3 - 19+ 3-dose series)2014 Cervical Cancer Ukvitbnhj40/17/2016HPV Vaccine (1 - 3-dose SCDM series) 2022ovid-19 Vaccine ( - 2024- season)2024Influenza Vaccine (#1) 2024DTaP,Tdap,Td Vaccine (2 - Td or Tdap)/12/2022RSV Vaccine (1 - 1-dose 75+ series)2070HIV EzzzneprtEgptlfnsa72/16/2024Hepatitis C DhannkpflLmdzdarva37/16/2024 Procedures Procedure NamePriorityDate/TimeAssociated DiagnosisCommentsHIV 1/2 COMBO WITH REFLEX TO PYBEZQNMUVRJYYIVngqjce93/16/2024 3:21 PM EST Special screening examination for infectious diseases HEPATITIS C ANTIBODY IA WITH TKUIIULHOEEDObeofki34/16/2024 3:21 PM EST Special screening examination for infectious diseases from Last 3 Months or Most Recently Relevant to Health Maintenance Results * HIV 1/2 COMBO WITH REFLEX TO DIFFERENTIATION (04/02/2024 3:21 PM EST)Component ValueRef RangeTest MethodAnalysis TimePerformed AtPathologist SignatureHIV 12 Combo (Ag/Ab)SwwcosgxtryRrihdscalpd39/17/2024 12:27 PM [facility]/2 AB (Confirmatory)04/03/2024 12:27 PM [facility] LABComment:Test not indicated.HIV Jozlekmtqmpjwy76/17/2024 12:27 PM [facility]Comment: No evidence of HIV-1 or HIV-2 infection. Should recent infection be suspected, repeat testing may be considered 2-3 weeks after this draw. [place] Rev. Code 3701.243(E): This information has been [...] Hernandez APRN.CNPLABORATORY Final ResultPerforming OrganizationAddressCity/State/ZIP CodePhone Number [facility] [address] [place] [address], * HEPATITIS C ANTIBODY IA WITH CONFIRMATION (04/02/2024 3:21 PM EST)Component ValueRef RangeTest MethodAnalysis TimePerformed AtPathologist SignatureHep C Antibody WUUflxerfnVaycewyn43/17/2024 11:20 AM [facility] LABComment:The result suggests no evidence of active infection with Hepatitis C virus. Should recent infectionbe suspected, repeat testing may be considered 4-6 weeks after this draw.Specimen (Source)Anatomical Location / Laterality Collection Method / VolumeCollection TimeReceived TimeBloodBLOOD SPECIMEN / UnknownVenipuncture / Cvwwrts9904/02/2024 3:21 PM EST04/02/2024 3:22 PM EST Narrative Authorizing ProviderResult TypeResult StatusShelly Hernandez APRN.CNPLABORATORY Final ResultPerforming OrganizationAddressCity/State/ZIP CodePhone Number [facility] [address] [facility] [address] [address], from Last 3 Months or Most Recently Relevant to Health Maintenance Insurance
--- OUTSIDE RECORDS SUMMARY | 2025-02-28 14:08 | XMS_ITS | Clinical Summary ---
Author Organization [facility] Address [facility] [address] [place] [address] Care Team Providers Care Retail Custodial Associate Name Role Phone No Pcp, No Pcp Primary Care Provider Unavailabl e Allergies Active AllergyReactionsCriticalityNoted DateCommentsNsaids (Non-Steroidal Anti- Inflammatory Drug)10/26/2024 Medications MedicationSigDispense QuantityRefillsLast FilledStart DateEnd DateStatus ka191-ilhe-ckaox acid ( 19) 29 mg iron- 1 [...] ProblemNoted DateDiagnosed DatePrevious gastric bypass affecting , cnqidiwasj38/20/2025Pregnancy headache in second /20/2025 Hypothyroidism affecting in second ugxhjpwxc93/20/2025ipolar disease during in second aqowezyne20/20/2025Estimated Date of Delivery DqvzabdoHcl02/06/2026Based on Other Basis, IUI conception date 07/31/2024 Encounters DateTypeDepartmentCare NstwPhgngmmcmai00/23/2025Orders Only [facility] 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 Commercial Sales Representative - [place] [address] [facility] [address] [place] [phone] Roslyn Griffin RN Hypothyroidism affecting in second trimester (Primary Dx); headache in second trimester; Previous gastric bypass affecting , antepartum; 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 ([facility])02/07/2025Travel 01/04/2025Orders Only Maternal- Medicine at [facility] [address] [place] [phone] Krystyna Dick RN Previous gastric bypass affecting , antepartum (Primary Dx); Hypothyroidism affecting in second trimester; 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 ([facility]); Obesity affecting in second trimester, unspecified obesity type 01/03/2025Telephone Maternal Medicine [place] [address] [facility] [address] [place] [phone] Roslyn Griffin RN 01/03/20259941Dlgoop10/20/2025 2:00 PM EDTOffice Visit Maternal- Medicine at [facility] [address] [place] [address] Enrike Garcia MD 20 weeks gestation of (Primary Dx); Previous gastric bypass affecting , antepartum; Obesity affecting in second trimester, unspecified obesity type; Hypothyroidism affecting in second trimester; 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 ([facility]); headache in second eyojcgbsc17/20/2025 12:36 PM EDT - 12/05/2024 11:59 PM EDTHospital Encounter [facility] - [facility] [address] [place] [phone] Screening, , for anatomic survey Discharge Disposition: Home12/05/2024Orders Only Maternal- Medicine at [facility] [address] [place] [phone] Chiquita Shen RN Previous gastric bypass affecting , antepartum (Primary Dx); Hypothyroidism affecting in second trimester; 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 (CMS-HCC); Obesity affecting in second trimester, unspecified obesity type; Encounter for supervision of resulting from assisted reproductive technology, csmchsepya54/20/2228Pvguen72/19/2025Telephone Maternal- Medicine at [facility] [address] [place] [phone] Chiquita Shen RN 12/04/2024Orders Only Maternal- Medicine at [facility] [address] [place] [phone] Ref Prov, Not In System 12/04/2024bstract Maternal- Medicine at [facility] [address] [place] [phone] Enrike Garcia MD from Last 3 Months Family History Medical HistoryRelationNameCommentsDiabetesFatherHypertensionFatherThyroid diseaseFatherDiabetesMaternal GrandfatherDepressionMotherObesityMotherSkin cancerMotherThyroid diseaseMotherRelationNameStatusCommentsFatherMaternal GrandfatherMotherPaternal Grandfather Social History Tobacco UseTypesPacks/DayYears UsedDateSmoking Tobacco: FormerCigarettesStarted: 2023Smokeless Tobacco: Never Tobacco Cessation:Counseling Given: Not Answered Alcohol UseStandard Drinks/WeekCommentsNot Currently0 (1 standard drink = 0.6 oz pure alcohol)ChildcareAnswerDate CgqbreqoOqvnqmyufRikuhly94/02/2021mployment AnswerDate KaysychxOgjrysdkrlRwjffri68/02/2021Hunger ScreeningAnswerDate RecordedWithin the past 12 months we worried whether our food would run out before we got money to buy more.Never True12/05/2024Within the past 12 months the food we bought just didn't last and we didn't have money to get more.Never True12/05/2024Purpose - LifeAnswerDate RecordedPurpose and direction in life Anasufy2705/20/2020Estimated Date of PwowfvqbGwgwklvtOdd11/06/2026ased on Other Basis, IUI conception date 07/31/2024Sex and Gender InformationValueDate RecordedSex Assigned at BirthNot on fileLegal TmfWhebza47/06/2015 12:10 PM EDT Gender IdentityNot on fileSexual OrientationNot on file Last Filed Vital Signs Vital SignReadingTime TakenCommentsBlood Errddtgg01/62012/05/2024 12:46 PM EDT Hvzgn477312/05/2024 12:46 PM EDTTemperature--Respiratory Rate--Oxygen Saturation-- Inhaled Oxygen Concentration--Abgjew813.6 kg (257 lb)12/05/2024 12:46 PM EDT Esgrfl945.3 cm (5' 11 )12/05/2024 12:46 PM EDTBody Mass Index35.8412/05/2024 12:46 PM EDT Plan of Treatment DateTypeDepartmentCare Team (Latest Contact Info)Vcotjrtcusy81/18/2025 11:15 AM ESTAppointment [facility] [address] [place] [phone] Health MaintenanceDue DateLast DoneCommentsDepression Dovihaxlx72/17/2007dult BMI Follow Up Plan2013Pap Smear2016COVID-19 Vaccine ( season)/07/2020, 07/22/2020Influenza Ehyggku4112/17/2024RSV ( or age 60+ yrs) (1 - Risk 1-dose series)02/26/2025dult BMI Screening Tobacco Qrqzycrxg35/20/925733/DTaP,Tdap and Td Vaccines (2 - Td or Tdap)/12/2022 Medical Devices Not on file Procedures Procedure NamePriorityDate/TimeAssociated DiagnosisCommentsUS [facility] OB FOLLOW[facility]UP, 1 XWCAGMslrfme48/23/2025 10:49 AM EDT Previous gastric bypass affecting , antepartum Hypothyroidism affecting in second trimester 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 (CMS-HCC) Obesity affecting in second trimester, unspecified obesity type [facility] OB FOLLOW-UP, 1 AMVTWYbhqnkm45/18/2025 3:09 PM EDT Previous gastric bypass affecting , antepartum Hypothyroidism affecting in second trimester 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 (CMS-HCC) Obesity affecting in second trimester, unspecified obesity type Encounter for supervision of resulting from assisted reproductive technology, antepartum [facility] COMPREHENSIVE ANATOMIC HXSOVTHphicar09/20/2025 2:42 PM EDT Screening, , for anatomic [...] HINDS : 1995 SEX: F Accession Number: [id number] ORDERING PHYSICIAN: ENRIKE GARCIA REFERRING PHYSICIAN: BASIM BIRMINGHAM Coding Procedures ? 03630: Ultrasound, uterus, real time with image documentation, follow up,transabdominal ? approach per fetus Indication Screening for follow-up survey, resulting from assisted reproductive technology- IUI, History of Gastric sleeve, Obesity in . History OB History ? 1. Para 0 ? [id number] Current Cell free DNA ?low risk analysis [...] (oz) ? 9 oz EFW by: ?Hadlock (OYI-KS-XJ-FL) Extended Tibia ??49.1 mm 29w 3d 59% [employer] Interpreter ? 5.2 mm CM ? 6.0 mm [...] Nasal bone. Heart/Thorax: 4-chamber view. 3-vessel view. 4-arrqwl-rfcaacw view. Situs. Interventricular septum.Cardiac position. ? Cardiac [...] HINDS : 1995 SEX: F Accession Number: [id number] ORDERING PHYSICIAN: ENRIKE GARCIA REFERRING PHYSICIAN: BASIM BIRMINGHAM Coding Procedures 97616: Ultrasound, uterus, real time with image documentation, follow up, transabdominal approach per fetus Indication Screening for follow-up survey, resulting from assistedreproductive technology- IUI, History of Gastric sleeve, Obesity in . History OB History 1. Para 0 [id number] Current Cell free DNA low risk analysis [...] EFW (oz) 9 oz EFW by: Hadlock (CIZ-PZ-AU-FL) Extended Tibia 49.1 mm 29w 3d 59% [employer] Interpreter 5.2 mm CM 6.0 mm 25% Nicolaides [...] Nasal bone. Heart/Thorax: 4-chamber view. 3-vessel view. 1-iwynts-iljdljy view. Situs. Interventricular septum. Cardiac position. Cardiac [...] DateEnd Date No Pcp, [place] [address] PCP - [facility]05/20/20
--- OUTSIDE RECORDS SUMMARY | 2025-02-28 14:08 | XMS_ITS | Clinical Summary ---
Author Organization [facility] Address [address] [place] [address] Phone Care Team Providers Care Automobile Damage Field Appraiser Name Role Phone Unavailable Primary Care Provider Unavailabl e Social History Tobacco UseTypesPacks/DayYears UsedDateSmoking Tobacco: Never Assessed CommentsUnknownSex and Gender InformationValueDate RecordedSex Assigned at Not on fileLegal SkqUkyiys44/26/2024 8:23 AM EDTGender IdentityNot on fileSexual OrientationNot on file Plan of Treatment Health MaintenanceDue DateLast DoneCommentsHIV Hbhpigytm1995Lipid Panel 1995TSH Level1995MMR Vaccines (1 of 1 - Standard series)1996 Hepatitis C Ylolsosgi40/17/2013Hepatitis B Vaccines (1 of 3 - 19+ 3-dose series) 2014HPV/Ksioaz4503/04/2016HPV Vaccines (1 - 3-dose standard series) 2022Influenza Vaccine (#1)5COVID-19 Vaccine (3 - 2024- season) 505/07/2020, 07/22/2020Yearly Adult Mljimuew05/07/2023 Cervical Cancer Bzgpvmqjd63/04/2027Pap Smear/TaP/Tdap/Td Vaccines (2 - Td or Tdap)/12/2022Zoster [...]
--- OUTSIDE RECORDS SUMMARY | 2025-02-28 14:08 | XMS_ITS | Patient Health Record ---
Author Organization [facility] [place] Address [address] [place] [address] Care Team Providers Care Arcade Technician Name Role Phone Robin Marquez MD Primary Care Provider Unavail able Reason For Referral No Information Plan Of Treatment No Information
--- OUTSIDE RECORDS SUMMARY | 2025-02-28 14:08 | XMS_ITS | Patient Health Record ---
Author Organization [facility] [facility] Address [address] [place] [address] Care Team Providers Care Signal Tower Director Name Role Phone Jovani Jennifer Primary Care Provider [phone] Julieta Jefferson Unavailable [phone] Allergies No Known Allergies Reason For Referral [...] MG Capsule1 capsule with food Orally at cdjlqfa382- 200 caloriesNot-Taking/PRNQUEtiapine Fumarate 25 MG Tablet1 tablet [...] a drink containing alcohol in the past year?XiBqpmym6JxlbzynvabphrcCetxfzxt Problems Problem Type SNOMED Code ICD Code Onset Dates Problem Status W/U Status Risk Notes Problem 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 (246305641) 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) ActiveconfirmedProblemAnxiety state (319617749)Anxiety state, unspecified (F41.1)ActiveconfirmedProblemLong-term current use of drug therapy (197202342) High risk medications (not anticoagulants) long-term use (Z79.899)Active confirmedProblemBipolar affective disorder, currently manic, mild (317701903) Bipolar disorder, current episode manic without psychotic features, mild (F31.11)Activeconfirmed Vital Signs Heart Rate 84 /min 10/24/2024 Brdqevqa66 %10/24/2024lood pressure dilwyjrnk76 mm Hg10/24/20245373Hoviln73 in 10/24/2024lood pressure keteyvet690 mm Hg10/24/20243440Tfpewk662.2 lbs10/24/2024MI 30.43 kg/m210/24/2024 Encounters Encounter Location Date Provider Diagnosis [address] [address] 04/25/2024 Julieta Jefferson Bipolar disorder, current episode manic without psychotic features, mild F31.11 and Anxiety state, unspecified F41.1 [facility] [address] [facility] [place] [address] 08/24/2024 Jennifer Hahn Bipolar disorder, current episode manic without psychotic features, mild F31.11 and Anxiety state, unspecified F41.1 [facility] [address] [place] [address] 09/25/2024 Jennifer Hahn Bipolar disorder, current episode manic without psychotic features, mild F31.11 [facility] [address] [place] [address] 10/24/2024 Jennifer Hahn Bipolar disorder, current episode manic without psychotic features, mild F31.11 [facility] [address] [place] [address] 05/10/2024 Julieta Jefferson Bipolar disorder, current episode manic without psychotic features, mild F31.11 and Anxiety state, unspecified F41.1 [facility] [address] [place] [address] 05/24/2024 Julieta Jefferson Bipolar disorder, current episode manic without psychotic features, mild F31.11 [facility] [address] [place] [address] 01/07/2025 Julieta Jefferson Bipolar disorder, current episode [...] consented to the start/continuation of the treatment. 01/07/2025ipolar disorder, current episode manic without psychotic features, mild (ICD-10 - F31.11)05/10/2024ipolar disorder, current episode manic without psychotic features, mild (ICD-10 - F31.11)05/24/2024ipolar disorder, current episode manic without psychotic features, mild (ICD-10 - F31.11)08/24/2024 Anxiety state, unspecified (ICD-10 - F41.1)04/25/2024nxiety state, unspecified (ICD-10 - F41.1)04/25/2024ipolar disorder, current episode manic without psychotic features, mild (ICD-10 - F31.11) cont current treatment [facility] [place] [facility] . . Informed consent obtained: YES, [...] unspecified (ICD-10 - F41.1) Plan Of Treatment Next Appt Details Provider Name:Tabitha levin, 03/29/2025 10:00:00 AM, [facility] [place], [address], Insurance Providers Payer Name Payer Address Payer Phone Subscriber Number Group Number Insured Name Patient Relationship to Insured Coverage Start Date Coverage End Date [facility] [address] [place] [address] [id number] Aysha DEL CID - patient is the [id number]/19/2022 [facility] [address] [place] [id number], HEATHERSelf - patient is the datcnwr2405/19/2022[facility] [address] [place] [id number], HEATHERSelf - patient is the [id number]/[facility] [employer]-termed 05/18/22[address] [place] [id number], HEATHERSelf - patient is the [id number]/[facility] MEDICAID [facility] after [employer]- termed 05/18/22[address] [place] [id number] Aysha DEL CID - patient is the / Medical (General) History Medical History History ICD Code obesity bipolarhypothyroidSurgical History Surgery Date(Month/Year) cholecystectomy gastric PTBTRM27/2021
--- OUTSIDE RECORDS SUMMARY | 2025-02-28 14:08 | XMS_ITS | Encounter Summary ---
Author Organization [facility] Address [address] [place] [address] Care Team Providers Care Fish Frog Or Oyster Farmer Name Role Phone Amanda Hewitt ANALYTICAL CHEMIST Primary Care Provider Encounter Details DateTypeDepartmentCare Team (Latest Contact Info)Evxiyjlrrta08/11/2025linisync Result Encounter [facility] Unsolicited Basim Martinez, DO [address] [place] [place], [place] [id number] Social History Tobacco UseTypesPacks/DayYears UsedDateSmoking Tobacco: Every DayCigarettes0.53 Smokeless Tobacco: NeverAlcohol UseStandard Drinks/WeekCommentsNot Currently0 (1 standard drink = 0.6 oz pure alcohol)caffeine: 1-2 cups per day teaPHQ-2Answer Date RecordedPatient Health Questionnaire-2 Mlltq801Estimated Date of NqydxxmyKdviumhwOlx60/06/2026Based on Est. Date of ConceptionSex and Gender InformationValueDate RecordedSex Assigned at SvdcnXebriw22/04/2023 8:10 PM EDTLegal KywOoilav61/02/2023 9:50 PM EDTGender QxaddvbzMiwpqy95/04/2023 8:10 PM EDTSexual OrientationNot on filedocumented as of this encounter Plan of Treatment DateTypeDepartmentCare Team (Latest Contact Info)Hmlnyyyabta17/18/2025 2:20 PM ESTRoutine [facility] [address] [place] [address] Jojo Ames PA [address] [place] [address] 08/21/2025 9:30 AM EDTOffice Visit [facility] [place] [facility] [address] [place] [address] Darleen Sinclair MD [address] [place] [address] documented as of this encounter Goals GoalPatient Goal TypeAssociated ProblemsRecent ProgressPatient-Stated?Author Reminders Care PlanOB RemindersNoOpen Scheduling, Backgrounddocumented as of this encounter Procedures Procedure NamePriorityDate/TimeAssociated DiagnosisCommentsUS OB BPP W NON-SMIKBA5602/26/2025 8:30 AM EST documented in this encounter Results * US OB BPP W NON-STRESS (02/26/2025 8:30 AM EST)Anatomical Region LateralityModalityOtherSpecimen (Source)Anatomical Location / Laterality Collection Method / VolumeCollection TimeReceived Time02/26/2025 8:30 AM EST Narrative 02/26/2025 8:32 AM EST [facility] [place] ?[address] ? [place] [address] ? Ultrasound Report ? Signed ? Patient: GUZMAN DEL CID ?MR#: [id number] ?? : 1995 ?Acct:[id number] ?? Age/Sex: 29 / F ?ADM Date: 02/25/25 ?? Loc: US ? Attending Dr: Basim Martinez D.O. ? Ordering Physician: Basim Martinez D.O. ?? Date of Service: 02/25/25 ?? Procedure(s): US OB BPP w non-stress ?? Accession Number(s): [id number] ? cc: Basim Martinez D.O.; AMANDA HEWITT ? [facility] [place] ? [address] ? [place] [address] ? Patient Name: ?? GUZMAN DEL CID ? MRN: [facility]:[id number] ? date: 1995 ?Sex: F ?? Assigned Patient Location: FB ?? Current Patient Location: ? Accession/Order Number: [id number] ?? Exam Date: 02/25/2025 ??14:03 ?Report Date: 02/26/2025 ??08:30 ? At the request of: ?? BASIM ??JUAN ??DO ? Procedure: ??US OB BPP w non-stress ? BIOPHYSICAL PROFILE: ? CLINICAL INFORMATION: TSH DEFICIENCY E03.8 ? COMPARISON: 01/21/2025 ? There is a single live intrauterine gestation in cephalic presentation. ??The ?? reported gestational age is 31 weeks 6 days. ??The heart rate measures ?? 126 beats per minute. ? FINDINGS: ? TONE: 1 or more episodes of activity extension and flexion of ?? extremity or opening and closing of the hand ?[Y] ? 2/2 ?? GROSS BODY MOVEMENTS: 3 or more discrete body or limb movements ?[Y] ? 2/2 ?? BREATHING MOVEMENTS: 1 or more episodes of breathing lasting at ?? least 30 seconds ? [Y] ? 2/2 ?? STARR: A single deepest vertical pocket of amniotic fluid greater than 2 cm ? [Y] ? 2/2 ?STARR: 17.9 cm ? Total score: ? 8/8 ? US/US OB BPP w non-stress ?? IMPRESSION: ? NORMAL BIOPHYSICAL PROFILE. ? Impression dictated by: Alana Umana M.D. ??02/26/2025 8:30 AM ? Dictation Location: RADIO-PC-02 ? Electronically authenticated by: [id number] ??Y ?? Date: 02/26/2025 ??08:30 ? Dictated By: ?Alana Umana M.D. ? Signed By: ?02/26/25 0832 ? DD/ 0830 ? TD/TT: ? Spa Attendant: Procedure Note Radiology, Radiologist, MD - 02/26/2025 [place] [address] Ultrasound Report Signed Patient: GUZMAN DEL CID EMR#: [id number] : 1995Acct:[id number] Age/Sex: 29 / FADM Date: 02/25/25 Loc: US Attending Dr: Basim Martinez D.O. Ordering Physician: Basim Martinez D.O. Date of Service: 02/25/25 Procedure(s): US OB BPP w non-stress Accession Number(s): [id number] cc: Basim Martinez D.O.; AMANDA HEWITT [place] [id number] Patient Name: GUZMAN DEL CID MRN: [id number] date: 1995 Sex: F Assigned Patient Location: [facility] Current Patient Location: Accession/Order Number: [id number] Exam Date: 02/25/2025 14:03 Report Date: 02/26/2025 08:30 At the request of: BASIM MARTINEZ DO Procedure: US OB BPP w non-stress BIOPHYSICAL PROFILE: CLINICAL INFORMATION: TSH DEFICIENCY E03.8 COMPARISON: 01/21/2025 There is a single live intrauterine gestation in cephalic presentation.The reported gestational age is 31 weeks 6 days. The heart ratemeasures 126 beats per minute. FINDINGS: TONE: 1 or more episodes of activity extension and flexion of extremity or opening and closing of the hand [Y] 2/2 GROSS BODY MOVEMENTS: 3 or more discrete body or limb movements [Y] 2/2 BREATHING MOVEMENTS: 1 or more episodes of breathing lastingat least 30 seconds [Y] 2/2 STARR: A single deepest vertical pocket of amniotic fluid greater than 2 cm [Y] 2/2 STARR: 17.9 cm Total score: 8/8 US/US OB BPP w non-stress IMPRESSION: NORMAL BIOPHYSICAL PROFILE. Impression dictated by: Alana Umana M.D. 02/26/2025 8:30 AM Dictation Location: [place] [address] Electronically authenticated by: [id number] Y Date: 508:30 Dictated By: Alana Umana M.D. Signed By:02/26/25831 DD/ 9 TD/TT: Spa Attendant: Authorizing ProviderResult TypeResult StatusCorey Juan DOCLINISYNC IMAGINGFinal Result documented in this encounter Visit Diagnoses Not on filedocumented in this encounter Additional Health Concerns Active ProblemsNoted DateDiagnosed DateOB Fqlfledki53/07/2025 documented as of this encounter Care Teams Team MemberRelationshipSpecialtyStart DateEnd Date Amanda Hewitt, TY [facility] [facility] [place] [address] PCP - GeneralFamily Uamcxzsp95/2/23documented as of this encounter
--- OUTSIDE RECORDS SUMMARY | 2025-02-28 14:08 | XMS_ITS | Clinical Summary ---
Author Organization [facility] Address [address], [address] [place] [address] Care Team Providers Care School Based Therapist Name Role Phone Robin Marquez MD Primary Care Provider [phone] Allergies No known active allergies Medications MedicationSigDispense QuantityRefillsLast FilledStart DateEnd DateStatus levothyroxine (SYNTHROID) 175 MCG tablet TAKE 2 TABLETS BY MOUTH ONCE YQCVQ301Active ALPRAZolam (XANAX) 0.5 MG tablet TAKE 1 [...] ProblemNoted DateDiagnosed DateRight upper quadrant abdominal pain03/30/2021 Qwyaxpjcvgl53/13/2021Orthostatic kmnwvrbef27/13/2021Obesity (BMI 30-39.9) 02/09/2021Obesity, Class III, BMI 40-49.9 (morbid obesity)11/10/2020hronic low back pain11/10/2020tatus post laparoscopic sleeve /19/2021Vitamin D jmiotujrro22/27/9410Rrptniddaqyfzu54/20/2019Bipolar disease, aqnvvql5612/05/2018 Plantar fasciitis, cxcemqhhc99/20/2019Marijuana use12/05/2018 Resolved Problems ProblemNoted DateDiagnosed DateResolved DateMorbid obesity with BMI of 50.0- 59.9, adultMorbid obesity with BMI of 60.0-69.9, adult Family History Medical HistoryRelationNameCommentsHigh Blood PressureFatherOtherMotherOther SisterRelationNameStatusCommentsFatherAlivethyroidMotherAlivethyroidSisterOther thyroid Social History Tobacco UseTypesPacks/DayYears UsedDateSmoking Tobacco: NeverSmokeless Tobacco: NeverAlcohol UseStandard Drinks/WeekCommentsNo0 (1 standard drink = 0.6 oz pure alcohol)CommentsNoSex and Gender InformationValueDate RecordedSex Assigned at BirthNot on fileLegal MytOzblde08/26/2015 7:37 PM ESTGender Identity Not on fileSexual OrientationNot on file Last Filed Vital Signs Vital SignReadingTime TakenCommentsBlood Ggtcueap759/6001/ 2:44 PM EST Ctpvg9215/27/2022 2:44 PM WCERipvxuuvjev42.7 ??C (98.1 ??F)03/30/2021 5:10 PM ESTRespiratory Gnku2102 5:10 PM ESTOxygen Icpdvunype56%03/30/2021 5:10 PM ESTInhaled Oxygen Concentration--Dyovtn55 kg (205 lb)09/04/2021 9:27 AM EDT Tggbzu224.9 cm (6')09/04/2021 9:27 AM EDTBody Mass Index27.8009/04/2021 9:27 AM EDT Plan of Treatment Not on file Insurance Advance Directives * Full Code (Latest Code Status on File) Date ActivatedDate InactivatedComments05/06/2020 4:42 PM05/08/2020 3:13 PM Care Teams Team MemberRelationshipSpecialtyStart DateEnd Date Robin Marquez MD [address] [place] [id number] PCP - GeneralFamily Medicine10/10/18
--- OUTSIDE RECORDS SUMMARY | 2025-02-28 14:08 | XMS_ITS | Clinical Summary ---
Author Organization [facility] Address [address] [place] [address] Care Team Providers Care Supercalender Operator Name Role Phone Amanda Ford COMPUTER ENGINEER Primary Care Provider Allergies Active AllergyReactionsCriticalityNoted FowdMauhgbofNtbwzoCczuixgMlqw52/02/2023 Patient had gastric bypass surgery in April [...] 60 capsule 5Active Active Problems ProblemNoted DateDiagnosed WyqoZnmzcgizaaj09/12/2024Estimated Date of KpfqvcbtFgbrmgvmIfw90/06/2026Based on Est. Date of Conception Encounters DateTypeDepartmentCare CxswHgcgiyfvtny41/11/2025linisync Result Encounter [facility] External Department Unsolicited Basim Martinez, 02/19/2025 1:00 PM ESTRoutine [facility] [address] [place] [address] Basim Martinez, Third trimester ([facility]); 31 weeks gestation of ([facility]); TSH (thyroid-stimulating hormone deficiency); H/O gastric kypcsd2602/19/2025linisync Result Encounter [facility] External Department Unsolicited Basim Martinez, 02/19/2025amboo flowsheet [facility] [address] [place] [address] Basim Martinez, 02/12/2025bstract [facility] [address] [place] [address] Jojo Be LPN 02/12/20255530Qrjbgd79/24/2025Patient Outreach [facility] [address] [place] [address] Jojo Be LPN 02/08/2025bstract [facility] [address] [place] [address] Kerrie Babcock MA 02/07/2025bstract [facility] [address] [place] [address] Basim Martinez, 02/06/2025 2:30 PM EDTRoutine [facility] [address] [place] [address] Jojo Ames, MELVI Third trimester ([facility]); 29 weeks gestation of ([facility])02/06/2025amboo flowsheet [facility] [address] [place] [address] Jojo Ames PA 01/31/2025bstract [facility] [address] [place] [address] Basim Martinez, DO 01/30/2025 2:30 PM EDTAncillary Procedure [facility] [address] [place] [address] TSH (thyroid-stimulating hormone deficiency)01/30/20253697Gpyina09/06/2025Telephone [facility] [address] [place] [address] Marsha Asif MA 01/16/2025 11:20 AM EDTRoutine [facility] [address] [place] [address] Mima Duenas, TY 26 weeks gestation of ([facility]); Second trimester ([facility]); TSH (thyroid-stimulating hormone deficiency)01/16/2025amboo flowsheet [facility] [address] [place] [address] Mima Duenas, TY 01/11/2025linisync Result Encounter [facility] External Department Unsolicited Basim Martinez, DO 01/11/2025Telephone [facility] [address] [place] [address] Basim Martinez, DO 01/10/2025Telephone [facility] [address] [place] [address] Jojo Ames PA 01/09/2025linisync Result Encounter [facility] External Department Unsolicited Jojo Ames PA 01/08/2025Telephone [facility] [address] [place] [address] Jojo Ames PA 01/07/2025bstract [facility] [address] [place] [address] Basim Martinez, DO 12/19/2024 10:00 AM EDTRoutine [facility] [address] [place] [address] Jojo Ames PA 22 weeks gestation of ([facility]); Second trimester ([facility]); Thyroid disease ; H/O gastric sleeve; H/O iron deficiency anemia; Diabetes mellitus chdautxfw99/03/2025amboo flowsheet [facility] [address] [place] [address] Jojo Ames PA 12/15/2024linisync Result Encounter [facility] External Department Unsolicited Basim Martinez, DO 12/12/20246406Qdulrf81/20/2025External Result Encounter [facility] [address] [place] [address] Basim Martinez, DO 12/04/2024 8:30 AM EDTAncillary Procedure [facility] [address] [place] [phone] Screening, , for anatomic survey ([facility])12/02/2024External Result Encounter [facility] External Department Unsolicited Eduardo Cruz, DO 11/30/2024Telephone [facility] [address] [place] [address] Lisa Campbell, YANDEL from Last 3 Months Immunizations ImmunizationAdministration DatesNext MbzMsmb5512/25/2022 Family History Medical HistoryRelationNameCommentsDiabetesFatherGreg spearsHypertensionFather Delbert spearsThyroid [...] cups per day teaPHQ-2AnswerDate RecordedPatient Health Questionnaire-2 Ravqv604Estimated Date of Delivery BjuysuklVcx00/06/2026ased on Est. Date of ConceptionSex and Gender Information ValueDate RecordedSex Assigned at EptojWxeyor44/04/2023 8:10 PM EDTLegal Sex Ijuiap8001/17/2023 9:50 PM EDTGender ZonytwleHvllao59/04/2023 8:10 PM EDTSexual OrientationNot on file Last Filed Vital Signs Vital SignReadingTime TakenCommentsBlood Itduicqb303/7611 1:26 PM EST Aozta120008/22/2024 10:04 AM EDTTemperature--Respiratory Acyp545908/22/2024 10:04 AM EDTOxygen Ggbnutohfb10%08/22/2024 10:04 AM EDTInhaled Oxygen Concentration-- Ijfnzz370 kg (287 lb)02/19/2025 1:26 PM LKTSxpdeo712.3 cm (5' 11 )08/22/2024 10:04 AM EDTBody Mass Index40.03008/22/2024 10:04 AM EDT Plan of Treatment DateTypeDepartmentCare Team (Latest Contact Info)Zwrsmsmqfjb90/18/2025 2:20 PM ESTRoutine [facility] [address] [place] [address] Jojo Ames PA [address] [place], [place] [phone] 08/21/2025 9:30 AM EDTOffice Visit [facility] [place] [facility] [address] [place] [address] Darleen Sinclair MD [address] [place] [address] Health MaintenanceDue DateLast DoneCommentsCOVID-19 Vaccine (2024- season) /07/2020, 07/22/2020Influenza Vaccine (#1)2024Pneumococcal Vaccine: Pediatrics (0 to 5 Years) and At-Risk Patients (6 to 64 Years)Aged Out No longer eligible based on patient's age to complete this topic Goals GoalPatient Goal TypeAssociated ProblemsRecent ProgressPatient-Stated?Author Reminders Care PlanOB RemindersNoOpen Scheduling, Background Procedures Procedure NamePriorityDate/TimeAssociated DiagnosisCommentsUS OB BPP W NON-CXQUPB2802/26/2025 8:30 AM EST ALL THYROID STIM MJBCQKHJxkcevu21/04/2025 2:18 PM EST POCT URINALYSIS HBMDITSSHhxnwqk05/04/2025 1:26 PM EST Third trimester ([facility]) POCT URINALYSIS UZKFIWGKYazdtko52/22/2025 2:49 PM EDT 29 weeks gestation of ([facility]) OB FOLLOW UP TRANSABDOMINAL WSAJRSCFWnyhhzs75/15/2025 3:10 PM EDT TSH (thyroid-stimulating hormone deficiency) POCT URINALYSIS PWYDLVCPMjhuvvd29/01/2025 11:40 AM EDT 26 weeks gestation of ([facility]) ALL THYROID STIM LIWVZFKOetygeg13/26/2025 2:48 PM EDT GLUCOSE 1 RFEWOucppjz45/24/2025 12:00 PM EDT ALL CBC WITH AUTO TUPCYkdkxog27/24/2025 12:00 PM EDT POCT URINALYSIS VSJHDOZSRuviecv71/03/2025 10:11 AM EDT 22 weeks gestation of ([facility]) Second trimester ([facility]) [facility] URINE MICROSCOPIC FLIQZxabhdc84/30/2025 11:24 PM EDT TB[facility] UA (CLEAN/CATCH) FRAMEMAN/MICRO IF IND.Xgpawel9312/15/2024 11:24 PM EDT US OB 14+ WEEKS ANATOMY SCAN12/05/2024 4:12 PM EDT US OB 14+ WEEKS ANATOMY TFJZBjuzegw04/19/2025 9:26 AM EDT Screening, , for anatomic survey ([facility]) URINALYSIS UBLOQITDJV59/17/2025 11:40 PM EDT from Last 3 Months Results * US OB BPP W NON-STRESS (02/26/2025 8:30 AM EST)Anatomical Region LateralityModalityOtherSpecimen (Source)Anatomical Location / Laterality Collection Method / VolumeCollection TimeReceived Time02/26/2025 8:30 AM EST Narrative 02/26/2025 8:32 AM EST [facility] ?[address] ? [place] [address] ? Ultrasound Report ? Signed ? Patient: GUZMAN DEL CID Colt ?MR#: [id number] ?? : 1995 ?Acct:[id number] ?? Age/Sex: 29 / F ?ADM Date: 02/25/25 ?? Loc: US ? Attending Dr: Basim Martinez D.O. ? Ordering Physician: Basim Martinez D.O. ?? Date of Service: 02/25/25 ?? Procedure(s): US OB BPP w non-stress ?? Accession Number(s): [id number] ? cc: Basim Martinez D.O.; AMANDA FORD ? [facility] ? [address] ? [place] [address] ? Patient Name: ?? GUZMAN DEL CID ? MRN: [facility]:[id number] ? date: 1995 ?Sex: F ?? Assigned Patient Location: FB ?? Current Patient Location: ? Accession/Order Number: [id number] ?? Exam Date: 02/25/2025 ??14:03 ?Report Date: [...] Dictation Location: RADIO-PC-02 ? Electronically authenticated by: [id number] ??Y ?? Date: 02/26/2025 ??08:30 ? Dictated By: ?Alana Umana M.D. ? Signed By: ?02/26/25 0832 ? DD/ 0830 ? TD/TT: ? Business Analysis Consultant: Procedure Note Radiology, Radiologist, MD - 02/26/2025 [place] [address] Ultrasound Report Signed Patient: GUZMAN DEL CID EMR#: [id number] : 1995Acct:[id number] Age/Sex: 29 / FADM Date: 02/25/25 Loc: US Attending Dr: Basim Martinez D.O. Ordering Physician: Basim Martinez D.O. Date of Service: 02/25/25 Procedure(s): US OB BPP w non-stress Accession Number(s): [id number] cc: Basim Martinez D.O.; AMANDA FORD [place] [address] Patient Name: GUZMAN DEL CID MRN: [id number] date: 1995 Sex: F Assigned Patient Location: [facility] Current Patient Location: Accession/Order Number: [id number] Exam Date: 02/25/2025 14:03 Report Date: 02/26/2025 [...] Umana M.D. 02/26/2025 8:30 AM Dictation Location: [place] [address] Electronically authenticated by: [id number] Y Date: 508:30 Dictated By: Alana Umana M.D. Signed By:02/26/25831 DD/ 9 TD/TT: Business Analysis Consultant: Authorizing ProviderResult TypeResult StatusCorey Juan DOCLINISYNC IMAGINGFinal Result * ALL THYROID STIM HORMONE (02/19/2025 2:18 [...] DOCLINISYNCFinal Result Performing OrganizationAddressCity/State/ZIP CodePhone Number JEREMY [facility] * POCT urinalysis dipstick manually resulted [...] Location / LateralityCollection Method / VolumeCollection TimeReceived XtduRzoak17/04/2025 1:26 PM EST Narrative Authorizing ProviderResult TypeResult [...] Olivo MD Authorizing ProviderResult TypeResult StatusMima Duenas NPIMYecenia OB US PROCEDURESFinal Result * GLUCOSE 1 HOUR (01/09/2025 12:00 PM EDT)ComponentValueRef RangeTest Method Analysis TimePerformed AtPathologist SignatureGLUCOSE 1 MSLC343<130 mg/dLTBH Specimen (Source)Anatomical Location / LateralityCollection Method / Volume Collection TimeReceived Time01/09/2025 12:00 PM EDT01/09/2025 12:02 PM EDT Narrative [facility] - 01/09/2025 12:55 PM EDT Authorizing ProviderResult TypeResult StatusJojo FINE BLOOD ORDERABLES Final ResultPerforming OrganizationAddressCity/State/ZIP CodePhone Number [facility] * (ABNORMAL) ALL CBC WITH AUTO DIFF (01/09/2025 12:00 PM EDT)ComponentValueRef RangeTest MethodAnalysis TimePerformed AtPathologist SignatureTBH WBC11.8(H) 4.0 - 11.0 10 3/uLTBHTBH RBC4.06(L)4.20 - 5.40 10 6/uLTBHTBH HGB12.012.0 - 16.0 g/dLTBHTBH HCT35.6(L)36.0 - 48.0 %TBHTBH MCV87.781.0 - 99.0 fLTBHTBH MCH 29.626.7 - 34.0 pgTBHTBH MCHC33.729.9 - 35.2 g/dLTBHTBH RDW13.211.0 - 15.0 % TBHTBH EYK759425 - 450 10 3/uLTBHTBH MPV8.7(L)9.5 - 13.5 [...] PACLINISYNCFinal Result Performing OrganizationAddressCity/State/ZIP CodePhone Number [facility] TB * [facility] URINE MICROSCOPIC ONLY (12/15/2024 11:24 PM EDT)ComponentValueRef Range Test MethodAnalysis TimePerformed AtPathologist SignatureTBH WBCNONE SEENNONE SEEN #/HPFTBHTBH RBC0-20 - 2 #/HPFTBHBACTERIA URINENONE SEENNONE SEEN #/HPFTBH MUCUS URINENONE SEENNONE SEENTBHSQUAMOUS EPITHELIAL CELL URINERARENONE/RARE #/LPFTBHCRYSTALS SEEN?None SeenNone Seen #/HPFTBHCAST SEEN?NONE SEENNONE SEEN #/LPFTBHURINE CULTURE INDICATEDNOTBHSpecimen (Source)Anatomical Location / LateralityCollection Method / VolumeCollection TimeReceived Time12/15/2024 11:24 PM EDT12/15/2024 11:40 PM EDT Narrative [facility] - 12/15/2024 11:50 PM EDT Authorizing ProviderResult TypeResult StatusCorey Juan DOCLINISYNCFinal Result Performing OrganizationAddressCity/State/ZIP CodePhone Number JEREMY TB * (ABNORMAL) [facility]H UA (CLEAN/CATCH) FRAMEMAN/MICRO IF IND. (12/15/2024 11:24 PM EDT) ComponentValueRef RangeTest MethodAnalysis TimePerformed AtPathologist SignatureCOLOR URINELT. YELLOWYELLOWTBHCLARITY URINECLEARCLEARTBHSPECIFIC GRAVITY URINE1.0151.005 - 1.025TBHPH URINE5.55.0 - 9.0TBHPROTEIN URINENEGATIVE NEG/TRACE mg/dLTBHGLUCOSE URINE UANEGATIVENEGATIVE mg/dLTBHBILIRUBIN URINE NEGATIVENEGATIVETBHKETONES URINENEGATIVENEGATIVE mg/dLTBHBLOOD URINESMALL(A) NEGATIVETBHNITRITE URINENEGATIVENEGATIVETBHUROBILINOGEN URINE0.20.2 - 1.0 EU/dLTBHLEUKOCYTE ESTERASE URINENEGATIVENEGATIVETBHURINE MICROSCOPIC INDICATED YESTBHSpecimen (Source)Anatomical Location / LateralityCollection Method / VolumeCollection TimeReceived Time12/15/2024 11:24 PM EDT12/15/2024 11:40 PM EDT Narrative [facility] - 12/15/2024 11:50 PM EDT Authorizing ProviderResult [...] PM EDT THIS EXAM WAS PERFORMED AT [facility] NAME: ??MARIA EUGENIA HINDS : 1995 SEX: F Accession Number: [id number] ORDERING PHYSICIAN: ENRIKE LINDQUIST REFERRING PHYSICIAN: BASIM MARTINEZ Coding Procedures ? 28415: Ultrasound, uterus, real time with image documentation, and maternal evaluation ? plus detailed anatomic examination, transabdominal approach;single or first gestation ? 33698: Transvaginal Ultrasound (OB) Indication Screening for Anatomic Survey, Screening for cervical length, resulting from assisted reproductive technology- IUI, History of Gastric sleeve, Obesity in . History OB History ? 1. Para 0 ? [id number] Current Cell free DNA ?low risk analysis [...] (oz) ? 14 oz EFW by: ?Hadlock (NQZ-[id number]) Extended Tibia ??27.0 mm 19w 5d 43% Gayle Computer Engineer ? 8.2 mm CM ? 4.2 mm [...] Thorax RVOT view. LVOT view. 3-vessel view. 6-uixqzq-ylabouq view. Bicaval view. Ductal arch view. Great [...] MVP measures 5.2 cm. Recommendations Please see [facility] documentation from today. The patient is scheduled in four to six week(s) to complete anatomic survey. Subsequent follow up or other follow up as clinically determined by primary OB provider unless otherwise specified by [facility]. Results forwarded to ordering provider so they can follow up with the patient as necessary. The copy-to physician of this order is BASIM Herring The ordering physician of this order is ENRIKE Alfaro Procedure Note Radiology, Radiologist, - 12/05/2024 THIS EXAM WAS PERFORMED AT [facility] NAME: MARIA EUGENIA HINDS : 1995 SEX: F Accession Number: [id number] ORDERING PHYSICIAN: ENRIKE LINDQUIST REFERRING PHYSICIAN: ABSIM MARTINEZ Coding Procedures 64031: Ultrasound, uterus, real time with image documentation, and maternal evaluation plus detailed anatomic examination, transabdominalapproach;single or first gestation 14377: Transvaginal Ultrasound (OB) Indication Screening for Anatomic Survey, Screening for cervical length, Pregnancyresulting from assisted reproductive technology- IUI, History of Gastric sleeve, Obesity in . History OB History 1. Para 0 P9P9K0C3 Current Cell free DNA low risk analysis [...] EFW (oz) 14 oz EFW by: Hadlock (TTP-GJ-IR-FL) Extended Tibia 27.0 mm 19w 5d 43% Gayle Computer Engineer 8.2 mm CM 4.2 mm 24% Nicolaides [...] Thorax RVOT view. LVOT view. 3-vessel view. 4-jhsvdp-gyaotaw view. Bicaval view. Ductal arch view. Great [...] MVP measures 5.2 cm. Recommendations Please see [facility] documentation from today. The patient is scheduled in four to six week(s) to complete anatomicsurvey. Subsequent follow up or other follow up as clinically determined byprimary OB provider unless otherwise specified by [facility]. Results forwarded to ordering provider so they can follow up with thepatient as necessary. The copy-to physician of this order is BASIM Herring The ordering physician of this order is ENRIKE Alfaro Authorizing ProviderResult TypeResult StatusCorey Juan [facility] OB US PROCEDURES Final Result * (ABNORMAL) Urinalysis with reflex microscopic (12/02/2024 11:40 PM EDT) ComponentValueRef RangeTest MethodAnalysis TimePerformed AtPathologist SignatureCOLOR,URINELight-XdqjycLmiywp29/18/2025 12:00 AM [facility] CtrAPPEARANCE,KEOPJBkfjsXkcuy65/18/2025 12:00 AM [facility] CtrSPECIFICY GRAVITY,URINE1.0171.001 - 1.58057 12:00 AM [facility] CtrPH,URINE5.55.0 - 9.008 12:00 AM [facility] CtrLEUKOCYTE ESTERASE,URINENegativeNegative 12/03/2024 12:00 AM [facility] CtrNITRITE,URINENegative Wjmzznxh21/18/2025 12:00 AM [facility] CtrPROTEIN,URINE NegativeNegative mg/dL12/03/2024 12:00 AM [facility]tr GLUCOSE,URINE (UA)NormalNormal mg/dL12/03/2024 12:00 AM [facility] CtrKETONES,GHWKKExnnmorgAqodcnsz24/18/2025 12:00 AM [facility] CtrUROBILINOGEN,URINENormalNormal mg/dL12/03/2024 12:00 AM [facility] CtrBILIRUBIN,IJVOAEfmkqkqhOdidcdeg61/18/2025 12:00 AM [facility] CtrOCCULT BLOOD,URINE3+Negative 12/03/2024 12:00 AM [facility] CtrRBC,URINE1-20 - 4 [HPF] 12/03/2024 12:17 AM [facility] CtrWBC,URINE1-20 - 4 [HPF] 12/03/2024 12:17 AM [facility] CtrSQUAMOUS EPITHELIAL CELL,URINE1-20 - 2 [[facility]]12/03/2024 12:17 AM [facility] BACTERIA,URINE1+None Seen [HPF]12/03/2024 12:17 AM [facility] CtrHYALINE CASTS,URINENone0 - 8 [LPF]12/03/2024 12:17 AM [facility] CtrMUCUS,URINE1+(AA)[LPF]12/03/2024 12:17 AM [facility] CtrSpecimen (Source)Anatomical Location / Laterality Collection Method / VolumeCollection TimeReceived FijzGcywh39/17/2025 11:40 PM EDT12/02/2024 11:49 PM EDT Narrative [facility] - 12/03/2024 12:17 AM EDT Comment c/o urinary symptoms or increased blood pressure Name Collection Type:: Voided Authorizing ProviderResult TypeResult StatusRichard A Visci DOLAB URINE ORDERABLESFinal ResultPerforming OrganizationAddressCity/State/ZIP CodePhone Number [facility] [address] [place] [address], [facility] [address] [place] [address] from Last 3 Months Additional Health Concerns Active ProblemsNoted DateDiagnosed DateOB Atombsmyb98/07/2025 Insurance Care Teams Team MemberRelationshipSpecialtyStart DateEnd Date Amanda Ford NP [facility] [place] [address] PCP - [facility] Kfcmcbtu42/2/23
--- OUTSIDE RECORDS SUMMARY | 2025-02-28 14:12 | XMS_ITS | CCD ---
Author Organization [facility] Care Team Providers Care [employer] Name Role Phone Mariam Appiah Primary Care Provider [phone] MACKENZIE BRITO Referring Unavailable MARIAM APPIAH Primary Care Unavailable RASHARD OLIVERA Referring Unavailable MARIAM APPIAH Primary Care Unavailable RASHARD OLIVERA Referring Unavailable MARIAM APPIAH Primary Care Unavailable RASHARD OLIVERA Admitting Unavailable RASHARD OLIVERA Attending Unavailable MARIAM APPIAH Primary Care Unavailable MARIAM APPIAH Primary Care Unavailable MARIAM APPIAH Primary Care Physician Amanda Ford Unavailable MD Mariam Appiah Primary Care Provider [phone] MELY Ford Attending Provider MELY Ford Primary Care Provider DO Jack Easton Emergency Provider MARYSOL Jett Emergency Provider [phone] MD Lashonda Farhad Admit Provider MD Farhad Gallego Attending Provider [phone] MELY Ford Attending Provider SHARRON Jefferson Attending Provider Petr Lay Unavailable Romeo Santana Unavailable MELY Ford Primary Care Provider DO Romeo Santana Attending Provider Daxa Ford NPnifer Primary Care Provider Unavailable Rohrbacher ELEMENT BURNER, Amanda Primary Care Provider Romeo Santana DO Attending Provider Rohrbacher IRRIGATION FLUME LAYER, Amanda A Primary Care Provider Unavailable Primary Care Provider Unavailabl e DAVID, MELODIE G Referring Unavailable Unavailable Primary Care Provider Unavailabl e NOLA ENRIQUEZ Attending Unavailable Rohrbacher IRRIGATION FLUME LAYER, Amanda A Primary Care Provider DAVID, MELODIE [...] Unavailable JUAN, LES R Attending Unavailable Rohrbacher ELEMENT BURNER, Amanda Primary Care Provider Kassidy Arriaza DO Emergency Provider No Pcp, No Pcp Primary Care Provider Unavailabl e Chris Dickerson DO Attending Provider [phone] Les Martinez DO Attending Provider [phone] Elizabeth Tom Attending Provider Eduardo Cruz DO [...] No Pcp Primary Care Provider Unavailabl e NO PCP, NO PCP Primary Care Unavailable JUAN, LES R Referring Unavailable JUAN, LES R Referring Unavailable NO PCP, NO PCP Primary Care Unavailable DARLEEN SINCLAIR Attending Unavailable DARLEEN SINCLAIR Referring Unavailable JUAN, LES Attending Unavailable JUAN, LES Attending Unavailable JUAN, LES Referring Unavailable JOJO AMES Attending Unavailable MIMA DUENAS Attending Unavailable MIMA DUENAS Referring Unavailable JOJO AMES Attending Unavailable JUAN, LES Attending Unavailable Allergies Allergy ClassificationReported Allergen(s)Allergy TypeDate of OnsetReaction(s) Facility (20 sources)Non-steroidal anti-inflammatory agentDrug allergyUnkEleanor [facility] Other (20 sources)Non-steroidal anti-inflammatory agent; Translations: [NSAIDs]Drug [id number] [facility] (1 source)ALLERGIES NOT ON FILE; Translations: [ALLERGIES NOT ON FILE]Propensity to adverse reactions (disorder)[facility] Repository (6 sources)NSAIDs; Translations: [NSAIDS (NON-STEROIDAL ANTI-INFLAMMATORY DRUG)] Propensity to adverse reactions to [facility]g75[facility]15[facility]1204[facility] (1 source)NSAIDsDrug allergy (disorder)91-40-9619[facility] Medications Current Medications MedicationDrug Class(es)DatesSig (Normalized)Sig (Original)acetaminophen 500 mg oral tablet (20 sources)Start: 50-96-1600bahq 1 tablet by mouth every eight hours as needed acetaminophen (TYLENOL) 500 mg tablet Take 500 mg by mouth every 8 hours as needed for pain. 12/06/2023 ActiveStart: 40-93-1673wcsd 1 tablet by mouth every six hours as needed for painStart: 11-28-2023 End: 96-90-3021hnihpvditgqtz (Tylenol Extra Strength) Discontinued 1000 MG PO EVERY 8-10 HOURS as needed for pain November 28, 2023 12:00am January 17, 2024 12:03pmacetaminophen 500 mg / diphenhydrAMINE hydrochloride 25 mg oral tablet (4 sources)Histamine-1 Receptor AntagonistStart: 38-64-4067chud 2 tablets by mouth once daily at bedtime for sleepTylenol Extra Strength PM oral tablet 2 tab(s), Oral, Once a day (at bedtime) for sleep, 60 tab(s),Refill(s) 2, [facility], 182, cm, 07/09/19 13:03:00 EDT, Height/Length Measured, 200.7, k g, 07/09/19 13:03:00 EDT, Weight Measured Start Date: 10/04/19 Status: Ordered acetaminophen 325 mg / oxyCODONE hydrochloride 5 mg oral tablet (2 sources)Opioid AgonistStart: 05-07-2020 End: 74-26-8855uppm 1 tablet by mouth every six hours [...] pain 28 tablet 0 05/07/2020 05/14/2020 ActiveStart: 44-99-7895jsrCSCRKE-acetaminophen (PERCOCET) 5-325 MG per tablet 1 tablet albuterol 0.833 mg/ml / ipratropium bromide 0.167 mg/ml inhalant solution (1 source)Anticholinergic, beta2-Adrenergic AgonistStart: 71-48-0386xtiloqygkfo- albuterol (DUONEB) nebulizer solution 1 ampulebenztropine mesylate 1 mg oral tablet (4 sources)Anticholinergic, AntihistamineStart: 31-19-0143rbfwnkphkgb 1 mg Tab Refills(s) 0 Start Date: 01/30/20 Status: Orderedcalcium chloride 0.0014 meq/ml / potassium chloride 0.004 meq/ml / sodium chloride 0.103 meq/ml / sodium lactate 0.028 meq/ml injectable solution (2 sources)Start: 05-06-2020 End: 95-29-2889gzpghqsd ringers infusiondocusate sodium 100 mg oral capsule (20 sources)Start: 04-16-2024 End: 39-96-9872wcxf 1 capsule by mouth twice daily as needed for constipation Docusate Sodium (Stool Softener) 100 mg capsule Active 0 .ROUTE .COMPLEX April 26, 2024 9:52am TAKE 1 CAPSULE BY MOUTH TWICE DAILY NEEDED FOR CONSTIPATION Complies with drug therapyStart: 04-16-2024 End: 99-58-4527tvgn 1 capsule by mouth twice daily as needed for constipation Docusate Sodium (Stool Softener) 100 mg capsule Discontinued 0 .ROUTE .COMPLEX April 16, 2024 8:58am April 26, 2024 8:57am TAKE 1 CAPSULE BY MOUTH TWICE DAILY NEEDED FOR CONSTIPATIONStart: 06-17-2022 End: 60-94-5401vmuvvasz sodium (Colace) 100 MG capsule 1 (one) time each day at the same time 06/17/2022 ActiveStart: 06-11-2022 End: 55-37-7472tkaf 1 capsule by mouth twice daily as [...] prefilled syringe (1 source)Low Molecular Weight HeparinStart: 77-78-7791tfpuslhgds (LOVENOX) 60 MG/0.6ML injection Inject 0.6 mLs into the skin 2 times daily 28 Syringe 0 0 05/07/2020 Active2 ml famotidine 10 mg/ml injection (1 source)Histamine-2 Receptor AntagonistStart: 50-66-4790tpxsizpsfx (PEPCID) injection 20 mg1 ml heparin sodium, porcine 5000 unt/ml prefilled syringe (2 sources)Unfractionated Heparin, Anti-coagulantStart: 05-06-2020 End: 63-44-3518uzdmgqi (porcine) injection 5,000 Units1 ml HYDROmorphone hydrochloride 1 mg/ml cartridge (3 sources)Opioid AgonistStart: 64-43-6456RLNLWbtjaskcm (DILAUDID) injection 1 mgStart: 05-06-2020 End: 85-15-6347VMDZIhjpkkdbr (DILAUDID) 1 MG/ML injectionStart: 05-06-2020 End: 29-67-3515BYBTVlsermidn (DILAUDID) injection 0.5 mghydrOXYzine hydrochloride 50 mg oral tablet (4 sources)AntihistamineStart: 34-29-0893vxiz 1-2 tablets by mouth four times dailyhydrOXYzine hydrochloride 50 mg oral tablet See Instructions, 1-2 tab(s) Oral QID, # 60 tab(s), Refills(s) 2, Pharmacy: [id number] Start Date: 10/09/18 Status: OrderedlamoTRIgine 200 mg oral tablet (20 sources)Mood Stabilizer, Anti-epileptic AgentStart: 15-16-7092Qjaocynqoxq Active MG TABLET April 10, 2022 12:00amStart: 70-83-0831flglmfkmmhk 200 mg Tab 300 mg = 1.5 tab(s), Oral, Daily, # 45 tab(s), Refills(s) 5, Pharmacy: [facility], 182, cm, 12/06/19 12:03:00 EDT, Height/Length Dosing, 200.7, kg, 11/28/19 9:08:00 EDT, Weight Dosing Start Date: 01/30/20 Status: OrderedStart: 10-04-2018 End: 59-22-4676vqrk 1 tablet by mouth once daily at bedtimeLamotrigine 200 mg tablet Discontinued 200 MG PO Daily at bedtime October 08, 2019 12:00am August 01, 2021 2:19pmLaMICtal 200 MG tablet 1.5 tabs Activelevothyroxine sodium 0.05 mg oral tablet (20 sources)l-ThyroxineStart: 02-24-2024 End: 10-56-9715fkqg 1 tablet by mouth before mealtimelevothyroxine (Synthroid, Levoxyl) 50 MCG tablet Indications: Nontoxic goiter Take 1 tablet (50 mcg) by mouth in the morning. Take before meals. 90 tablet 3 08/22/2024 08/17/2025 ActiveStart: 10-13-2023 End: 05-87-2659omng 1 capsule by mouth once daily in the morningLevothyroxine 50 mcg capsule Discontinued 50 MCG PO Every morning October 13, 2023 12:00am April 26, 2024 9:56amStart: 10-08-2019 End: 14-02-7994rcey 1 tablet by mouth every other dayLevothyroxine 175 mcg Tablet Discontinued 175 MCG PO every other day October 08, 2019 12:00am July 172021 2:19pm 1 tablet on odd daysStart: 10-08-2019 End: 07-37-4075pxss 1.5 tablets by mouth every other dayLevothyroxine 175 mcg Tablet Discontinued 262 MCG PO every other day October 08, 2019 12:00am July 172021 2:19pm 1.5 tabs every other day on even daysStart: 10-08-2019 End: 02-77-8547lrwe 1.5 tablets by mouth every other dayLevothyroxine Discontinued 262 MCG PO every other day October 08, 2019 12:00am August 01, 2021 2:19pm 1.5 tabs every other day on even daysStart: 88-13-7957hsqj 1 tablet by mouth once dailylevothyroxine 175 mcg (0.175 mg) Tab 175 microgram = 1 tab(s), Oral, Daily, # 30 tab(s), Refills(s)0 Start Date: 09/03/18 Status: Ordered lidocaine 0.05 mg/mg medicated patch (20 sources)Antiarrhythmic, Amide Local AnestheticStart: 02-24-2024 End: 68-34-4294hlctz 1 dose transdermal route once dailyLidocaine 5 % adhesive patch,medicated Active 0 .ROUTE .COMPLEX April 26, 2024 9:53am APPLY 1 PATCH TOPICALLY ONCE DAILY. REMOVE AFTER 12 HOURS Complies with drug therapy Start: 02-24-2024 End: 72-79-8412ubqbw 1 dose topically once dailyLidocaine 5 % adhesive patch,medicated Discontinued 1 PATCH TOPICAL Daily February 24, 2024 1:00am February 24, 2024 9:54am leave on most painful area for up to 12 hrsStart: 10-24-2023 End: 96-05-2114pgbvn 1 dose transdermal route once dailyLidocaine 5 % adhesive patch,medicated Discontinued 0 .ROUTE .COMPLEX October 24, 2023 8:47am January 17, 2024 12:04pm APPLY 1 PATCH TOPICALLY ONCE DAILY. REMOVE AFTER 12 HOURS Start: 06-03-2023 End: 28-47-7309hjngr 1 dose topically once daily as neededLidocaine 5 % adhesive patch,medicated Discontinued 1 PATCH TOPICAL Daily as needed June 03, 2023 1:00am October 24, 2023 8:48am REMOVE AFTER 12 HOURSStart: 28-06-7272Llrualtdr 5 % 1 patch remove after 12 hours Externally Once a day for 30 day(s) PRN Jan, ActiveLidocaine 5 % APPLY 1 PATCH TOPICALLY ONCE DAILY. REMOVE AFTER 12 HOURS. for 30 Activelithium carbonate 450 mg extended release oral tablet (8 sources)Start: 77-16-3069leqs 1 tablet by mouth once daily in the morning, then take 2 tablets by mouth once daily in the eveninglithium 450 mg oral tablet, extended release See Instructions, 1 tab po qAM and 2 tabs qPM, # 90 tab (s), Refills(s) 2, Pharmacy: [facility], 182, cm, 12/06/19 12:03:00 EDT, Height/Length Dosing, 200.7, kg, 11/28/19 9:08:00 EDT, Weight Dosing Start Date: 03/17/20 Status: Orderedmagnesium oxide 400 mg oral tablet (5 sources)Start: 12-43-6529dhxw 1 tablet by mouth once in the morning, then take 1 tablet by mouth at bedtimemagnesium oxide (MAGOX) 400 mg tablet Indications: headache in second trimester Take 1 tablet (400 mg total) by mouth in the morning and 1 tablet (400 mg total) before bedtime. 120 tablet 1 12/05/2024 Active2 ml ondansetron 2 mg/ml injection (1 source)Serotonin-3 Receptor AntagonistStart: 84-54-8601yxbdvlrjgvg (ZOFRAN) injection 4 mgpantoprazole 40 mg extended release oral tablet (4 sources)Proton Pump InhibitorStart: 73-15-2103fzba 1 tablet by mouth once dailypantoprazole 40 mg Oral EC Tab 40 mg = 1 tab(s), Oral, Daily, # 30 tab(s), Refills(s) 0 Start Date:09/03/18 Status: OrderedPNV Combo No.47-Iron-FA #1-DHA (PNV-DHA) 27 mg iron-1 mg -300 mg (5 sources)Start: 16-47-1236johl 1 capsule by mouth once dailyPNV Combo No.47-Iron-FA #1-DHA (PNV-DHA) 27 mg iron-1 mg -300 mg Take 1 capsule by mouth once daily. 08/20/2024 Activepolysaccharide iron complex 391 mg oral capsule (20 sources)Start: 86-81-1905bnpr 1 capsule by mouth twice daily at bedtimeProFe 391.3 (180 Fe) MG capsule Indications: Other iron deficiency anemia TAKE 1 CAPSULE BY MOUTH TWICE DAILY IN THE MORNING AND BEFORE BEDTIME 60 capsule 3 11/06/2024 ActiveStart: 12-07-2023 End: 31-48-3233syhg 1 capsule by mouth once dailyPolysaccharide Iron Complex (Pro Fe) 180 mg iron capsule Discontinued 180 MG PO Daily December 07, 2023 12:00am April 23, 2024 3:52pmtake 2 capsules by mouth twice daily Polysaccharide Iron Complex (PRO FE) 180 mg iron cap Take 2 capsules by mouth two times a day. Activeprenatal xu842-myxf-wfxuz acid ( 19) 29 mg iron- 1 mg tablet,chewable (7 sources) he901-dflm-kfied acid ( 19) 29 mg iron- 1 mg tablet,chewable Chew 1 tablet and swallow in the morning. Activepromethazine hydrochloride 25 mg oral tablet (8 sources)PhenothiazineStart: 16-48-4264yzrx 1 tablet by mouth every six hours as needed for nauseapromethazine (PHENERGAN) 25 MG tablet Take 1 tablet by mouth every 6 hours as needed for Nausea 30 tablet 0 05/07/2020 ActiveStart: 05-06-2020 End: 26-58-1792cvxs 1 tablet by mouth four times daily as needed for nausea promethazine (PHENERGAN) 25 MG tablet Take 1 tablet by mouth 4 times daily as needed for Nausea 20 tablet 0 05/07/2020 05/14/2020 ActiveStart: 05-06-2020 promethazine (PHENERGAN) injection 12.5 mgStart: 03-28-2019 End: 90-91-4851pqgv 1 tablet by mouth every four hours as needed for nausea and vomitingpromethazine (PHENERGAN) 25 MG tablet TAKE 1 TABLET BY MOUTH EVERY 4 HOURS NEEDED FOR NAUSEA ANDVOMITING 0 03/28/2019 05/07/2020 Discontinued (REORDER)QUEtiapine 25 mg oral tablet (20 sources)Atypical AntipsychoticStart: 71-08-5121udjm 1 tablet by mouth at bedtimeQuetiapine 25 mg tablet Active 25 MG PO Bedtime April 10, 2022 1:00am Complies with drug therapyStart: 71-44-6214Bnalktamqr Active MG TABLET April 10, 2022 12:00amStart: 66-37-7807skng 2 tablets by mouth at bedtime quetiapine 50 mg oral tablet 100 mg = 2 tab(s), Oral, Bedtime, # 60 tab(s), Refills(s) 5, Pharmacy:[facility], 182, cm, 12/06/19 12:03:00 EDT, Height/Length Dosing, 200.7, kg, 11/28/19 9:08:00 EDT, Weight Dosing Start Date: 03/12/20 Status: Orderedtake 1 tablet by mouth once dailyQUEtiapine (SEROQUEL XR) 50 MG extended release tablet Take 50 mg by mouth nightly 0 Wnsalq80 hr scopolamine 0.0139 mg/hr transdermal system (2 sources)AnticholinergicStart: 53-67-7011xuqsfvqeucd (TRANSDERM-SCOP) transdermal patch 1 patchsertraline 25 mg oral tablet (20 sources)Serotonin Reuptake InhibitorStart: 27-68-5619zocj 1 tablet by mouth once dailysertraline (Zoloft) 25 MG tablet Take 25 mg by mouth 1 (one) time each day at the same time 09/25/2024 Active3 ml sodium chloride 9 mg/ml injection (2 sources)Start: 78-27-8594mrswnk chloride flush 0.9 % injection 10 mLSprintec oral tablet (4 sources)Start: 16-23-0929Nwtcdwyt oral tablet 1 tab(s), Oral, Daily, 28 tab(s), Refill(s) 0 Start Date: 05/25/19 Status: Orderedsulfamethoxazole 400 mg / trimethoprim 80 mg oral tablet (7 sources)Dihydrofolate Reductase Inhibitor Antibacterial, Sulfonamide Antimicrobialtake 1 tablet by mouth every twenty-four hoursBactrim 400-80 MG 1 tablet Orally Once a day Activeziprasidone 80 mg oral capsule (20 sources)Atypical AntipsychoticStart: 02-82-4808zjqj 1 capsule by mouth twice daily at mealtimeziprasidone 80 mg Cap 80 mg = 1 cap(s), Oral, BID, with food, # 60 cap(s), Refills(s) 2, Pharmacy: [facility], 182, cm, 12/06/19 12:03:00 EDT, Height/Length Dosing, 200.7, kg, 11/28/19 9:08:00 EDT, Weight Dosing Start Date: 03/12/20 Status: OrderedStart: 10-08-2019 End: 89-92-9123jfjp 1 capsule by mouth twice dailyZiprasidone Hcl [...] oral tablet (20 sources)Opioid AgonistStart: 08-01-2021 End: 66-78-9262eiyo 1 tablet by mouth every eight hours as needed for pain Hydrocodone-Acetaminophen 5-325 mg tablet Discontinued 1 TAB PO Q8H as needed for pain 7 2 August 01, 2021 April 10, 2022 7:18pmALPRAZolam 0.5 mg oral tablet (20 sources)BenzodiazepineStart: 06-17-2022 End: 36-08-1974xdur 1 tablet by mouth twice daily as needed for anxiety Alprazolam (Xanax) 0.5 mg tablet Discontinued 0.5 MG PO Twice daily as needed for Anxiety June 03, 2023 9:03am December 02, 2024 11:33pmStart: 06-10-2022 End: 80-01-6464xxlb 1 tablet by mouth once daily as needed for anxietyAlprazolam (Xanax) 0.5 mg Tablet Discontinued 0.5 MG PO Daily as needed for Anxiety June 10, 2022 1:00am June 03, 2023 9:04amStart: 65-47-8791aulh 1-2 tablets by mouth every 30 days at bedtime as needed for anxietyalprazolam 0.5 mg Tab 1-2 tabs, Oral, Bedtime, PRN for anxiety, 30 day supply; DX: F41, anxiety, # 60 tab(s), Refills(s) 1, Pharmacy: [facility], 182, cm, 12/06/19 12:03:00 EDT, Height/Length Dosing, 200.7, kg, 11/28/19 9:08:00 EDT, Weight Dosing Start Date: 01/30/20 Status: OrderedStart: 10-08-2019 End: 28-24-2153vtez 1 tablet by mouth three times daily as needed for anxiety Alprazolam (Xanax) 0.5 mg Tablet Discontinued 0.5 MG PO Three times daily as needed for Anxiety October 08, 2019 12:00am April 10, 2022 7:18pmatomoxetine 40 mg oral capsule (11 sources)Norepinephrine Reuptake InhibitorStart: 01-25-2022 End: 05-35-6456Tzstorvka 40 MG capsule 1 (one) time each day at the same time. 01/25/2022 10/22/2024 Jhebrdktzcer18 ml bupivacaine hydrochloride 5 mg/ml injection (1 source)Amide Local AnestheticStart: 05-06-2020 End: 51-59-9481ulqfqojlmyv (PF) (MARCAINE) 0.5 % injection 200 mgStart: 05-06-2020 End: 01-46-2364vdjjiakvplm (PF) (MARCAINE) 0.5 % injection 200 mg12 hr buPROPion hydrochloride 150 mg extended release oral tablet (15 sources)AminoketoneStart: 04-26-2024 End: 27-64-3492pfzc 1 tablet by mouth once dailyBupropion Hcl (Wellbutrin Sr) 150 mg tablet sustained-release 12 hr Discontinued 150 MG PO Daily April 26, 2024 1:00am December 02, 2024 11:34pm End: 82-47-3245jxns 1 tablet by mouth once dailybuPROPion XL (Wellbutrin XL) 150 MG 24 hr tablet Take 150 mg by mouth Daily Do not crush, chew, or split. 10/22/2024 DiscontinuedbusPIRone hydrochloride 15 mg oral tablet (20 sources)Start: 04-10-2022 End: 67-42-6276dzgj 1 tablet by mouth three times daily as neededBuspirone 15 mg tablet Discontinued 15 MG PO Three times daily June 10, 2022 1:00am June 03, 2023 9:04am TAKE 1 TABLET BY MOUTH THREE TIMES DAILY NEEDED FOR 30 DAYSStart: 04-10-2022 End: 16-20-7697xogc 1 tablet by mouth twice dailyBuspirone 15 mg tablet Discontinued 15 MG PO Twice daily June 03, 2023 9:01am December 02, 2024 11:34pmStart: 04-10-2022 End: 21-15-7391Kiahcrdrd Discontinued MG TABLET April 10, 2022 1:00am June 10, 2022 6:28pmceFAZolin (ANCEF) 3 g in dextrose 5 % 100 mL IVPB (1 source)Start: 05-06-2020 End: 66-76-0602dhOOXylzu (ANCEF) 3 g in dextrose 5 % 100 mL IVPBcyclobenzaprine hydrochloride 10 mg oral tablet (20 sources)Muscle RelaxantStart: 06-10-2022 End: 94-61-1597vsed 1 tablet by mouth at bedtimeCyclobenzaprine 10 mg tablet Discontinued 10 MG PO Bedtime June 10, 2022 1:00am November 28, 2023 3:55pmStart: 05-07-2020 End: 27-35-8249liuf 1 tablet by mouth once daily as needed for muscle spasms cyclobenzaprine (FLEXERIL) 10 MG tablet Take 1 tablet by mouth nightly as needed for Muscle spasms 10 tablet 0 05/07/2020 05/17/2020 ActiveStart: 39-80-4251ayob 1 tablet by mouth twice daily as needed for muscle spasmscyclobenzaprine (FLEXERIL) 10 MG tablet Take 1 tablet by mouth 2 times daily as needed for Muscle spasms 20 tablet 0 05/07/2020 ActiveStart: 10-08-2019 End: 37-02-7796xfaq 1 tablet by mouth three times daily as needed for muscle spasmsCyclobenzaprine 10 mg tablet Discontinued 10 MG PO Three times daily as needed for Muscle Spasm October 08, 2019 12:00am August 01, 2021 2:19pm End: 15-67-0149dymw 5 mg by mouth three times daily as needed for muscle spasms cyclobenzaprine (Flexeril) 10 MG tablet Take 5 mg by mouth 3 (three) times a day as needed for muscle spasms 10/22/2024 Discontinueddiclofenac sodium 0.01 mg/mg topical gel (17 sources)Nonsteroidal Anti-inflammatory DrugStart: 11-28-2023 End: 37-00-7566aqsmi 1 g topically four times daily as needed for painDiclofenac Sodium (Aleve (Diclofenac)) 1 % gel Discontinued 1 GM TOPICAL Four times daily as neededfor pain November 28, 2023 12:00am January 17, 2024 12:03pm apply to single elbow, wrist or hand; for hand includes palm/fingers/back of handStart: 77-48-5819Eyqhzivwwd Sodium 1 % 2 grams Externally Four times a day as needed for 30 day(s) Mar, Activedoxycycline hyclate 100 mg oral tablet (20 sources)Tetracycline-class DrugStart: 08-01-2021 End: 86-15-9898hxji 1 tablet by mouth twice dailyDoxycycline Hyclate 100 mg tablet Discontinued 100 MG PO Twice daily August 01, 2021 12:00am April 10, 2022 7:18pmergocalciferol 1.25 mg oral capsule (20 sources)Provitamin D2 CompoundStart: 10-08-2019 End: 69-67-7910Aafvtzbyjssaly (Vitamin D2) (Vitamin D2) 1,250 mcg (50,000 unit) capsule Discontinued 82271 UNIT POevery week October 08, 2019 12:00am August 01, 2021 2:19pm Takes on Sundaystart: 83-57-1456Vxeueit D2 2000 intl units oral capsule Refills(s) 0 Start Date: 05/25/19 Status: OrderedStart: 01-12-2019 End: 56-45-1240hkbd 1 capsule by mouth every weekvitamin D (ERGOCALCIFEROL) 60219 units CAPS capsule Indications: Vitamin D deficiency Take 1 capsule by mouth once a week for 8 doses 8 capsule 0 01/12/2019 05/08/2020 Discontinued (Stop Taking at Discharge) End: 09-88-3070Lxxqxwdgzxbsow (VITAMIN D2 PO) Take 50,000 capsules by mouth once a week 0 05/08/2020 Discontinued (Stop Taking at Discharge)Ergocalciferol (VITAMIN D2 PO) Take 50,000 capsules by mouth once a week 0 ActiveNorgestimate- Ethinyl Estradiol (20 sources)Progestin, EstrogenStart: 10-08-2019 End: 74-26-8693badi 1 tablet by mouth once dailyNorgestimate-Ethinyl Estradiol (Sprintec (28)) 0.25-35 mg-mcg tablet Discontinued 1 TAB PO Daily October 08, 2019 12:00am August 01, 2021 2:19pmStart: 10-08-2019 End: 84-47-5569gfsa 1 tablet by mouth once dailyNorgestimate-Ethinyl Estradiol (Sprintec (28)) 0.25-35 mg-mcg tablet Discontinued 1 TAB PO Daily October 07, 2019 11:00pm August 01, 2021 1:19pmStart: 76-42-2445qgnk 1 tablet by mouth once dailySPRINTEC 28 0.25-35 MG-MCG per tablet TAKE 1 TABLET BY MOUTH ONCE DAILY 3 01/13/2019 Active2 ml fentaNYL 0.05 mg/ml injection (1 source)Opioid AgonistStart: 05-06-2020 End: 30-24-3267wbkzaHFN (SUBLIMAZE) injection 25 mcgferrous sulfate 325 mg oral tablet (20 sources)Start: 01-30-2020 End: 59-14-7737kopy 1 tablet by mouth once dailyFerrous Sulfate 325 mg (65 mg iron) tablet Discontinued 325 MG PO Daily June 11, 2022 1:00am August 29, 2023 11:07amgabapentin 300 mg oral capsule (1 source)Anti-epileptic AgentStart: 05-05-2020 End: 26-65-8631fcpz 1 capsule by mouth once daily, then take 1 capsule by mouth, then take 1 capsule by mouthgabapentin (NEURONTIN) 300 MG capsule Take 1 capsule by mouth daily for 2 days. Take one pill the night before and one the morning of surgery 2 capsule 0 05/05/2020 05/08/2020 Discontinued (Stop Taking at Discharge)iohexol (OMNIPAQUE 240) injection 30 mL (1 source)Start: 05-07-2020 End: 41-29-4003tlszhpu (OMNIPAQUE 240) injection 30 mL1 ml ketorolac tromethamine 15 mg/ml cartridge (1 source)Nonsteroidal Anti-inflammatory Drug, Cyclooxygenase InhibitorStart: 05-07-2020 End: 17-66-0014ekwsrtiyj (TORADOL) injection 15 mgStart: 05-07-2020 End: 19-95-3470bygfkbood (TORADOL) injection 15 mglansoprazole 30 mg delayed release oral capsule (20 sources)Proton Pump InhibitorStart: 10-08-2019 End: 88-64-3511eano 1 capsule by mouth once daily in the morningLansoprazole 30 mg capsule,delayed release(DR/EC) Discontinued 30 MG PO Every morning November 28, 2023 12:00am February 10, 2024 11:58amletrozole 2.5 mg oral tablet (4 sources)Aromatase Inhibitor End: 46-63-5513tbhx 1 tablet by mouth once dailyletrozole (Femara) 2.5 MG chemo tablet Take by mouth Daily. Take with or without food. 09/20/2024 Discontinued (Therapy completed)Lidocaine 5 % adhesive patch,medicated (3 sources)Start: 02-24-2024 End: 94-87-0759zudkt 1 dose transdermal route once dailyLidocaine 5 % adhesive patch,medicated Discontinued 0 .ROUTE .COMPLEX February 24, 2024 8:53am J anuary 2024 8:57am APPLY 1 PATCH TOPICALLY ONCE DAILY. REMOVE AFTER 12 HOURSStart: 89-90-0677brzvk 1 dose transdermal route once dailyLidocaine 5 % adhesive patch,medicated Active 0 .ROUTE .COMPLEX February 24, 2024 8:53am APPLY 1 PATCH TOPICALLY ONCE DAILY. REMOVE AFTER 12 HOURSlurasidone hydrochloride 40 mg oral tablet (1 source)Atypical Antipsychotic End: 73-41-8990jiog 1 tablet by mouth once dailylurasidone (LATUDA) 40 MG TABS tablet Take by mouth daily 0 04/22/2020 Discontinued (LIST CLEANUP) medroxyPROGESTERone acetate 10 mg oral tablet (20 sources)ProgestinStart: 04-10-2022 End: 38-60-0278Mfdqaunivyvvvrotqos (Provera) 10 mg tablet Discontinued 10 MG PO Daily 01 25April 10, 2022 1:00am June 10, 2022 6:28pm begin day 16 of cyclemethylPREDNISolone acetate 80 mg/ml injectable suspension (20 sources)CorticosteroidStart: 55-03-7449CSBV-Medrol Sep, 80 mgStart: 45-12-4640vyavkgMSTQWAUbziak 4 MG as directed Orally daily for 6 days August, ActiveStart: 20-98-7953lfnvfuOFPBLCZsehdr 4 MG as directed Orally daily for 6 days Jan, Not-Taking2 ml midazolam 1 mg/ml injection (1 source)BenzodiazepineStart: 05-06-2020 End: 28-43-0899aamqtmvcr PF (VERSED) injection 1 mgmupirocin 20 mg/ml topical cream (20 sources)RNA Synthetase Inhibitor AntibacterialStart: 06-10-2022 End: 63-28-8525Sstmsmigz Calcium 2 % cream Discontinued 1 APPLIC TOPICAL Twice daily as needed for GENITAL BOILS June 10, 2022 1:00am December 02, 2024 11:34pmStart: 08-47-1275Qciwlspue Calcium 2 % 1 application Externally Twice a day for 5 day(s) Jan, ActiveStart: 35-09-7978Zhagrrtmz Calcium 2 % 1 application Externally Twice a day for 5 day(s) Jan, Activenaltrexone hydrochloride 50 mg oral tablet (20 sources)Opioid AntagonistStart: 10-25-2023 End: 14-18-7935navhsdxuxg (Depade) 50 MG tablet every 12 (twelve) hours 10/25/2023 04/21/2024 ActiveStart: 06-03-2023 End: 04-00-5854vmzp 2 tablets by mouth twice dailynaltrexone 50 mg tablet Take 2 tablets by mouth two times a day. 06/03/2023 ActiveStart: 06-03-2023 End: 17-21-2426uqhb 1 tablet by mouth twice dailyNaltrexone 50 mg tablet Discontinued 100 MG PO Twice daily April 23, 2024 3:51pm December 02, 2024 11:34pmStart: 47-04-2478ylte 50 mg by mouth once dailyNaltrexone Active 50 MG PO Daily June 03, 2023 1:00amtake 1 tablet by mouth every twenty-four hours Naltrexone HCl 50 MG 1 tablet Orally Once a day ActiveoxyCODONE hydrochloride 5 mg oral tablet (17 sources)Opioid AgonistStart: 12-09-2023 End: 15-22-4907ravw 1 tablet by mouth at mealtime for painOxycodone 5 mg tablet Discontinued 5 MG PO .q6-8hrs as needed for severe pain 03 22December 09, 2023 December 20, 2023 10:47am Take with food. Do not fill until 12/10/23.Start: 12-06-2023 End: 76-55-2577ghry 1 tablet by mouth every six hours as needed for pain Oxycodone 5 mg tablet Discontinued 5 MG PO Q6H as needed for Pain 04 09December 06, 2023 December 07, 2023 7:13amrisperiDONE 4 mg oral tablet (1 source)Atypical AntipsychoticStart: 09-19-2018 End: 44-82-8886bntw 1 tablet by mouth in the morningrisperiDONE (RISPERDAL) 4 MG tablet TAKE 1 2 (ONE HALF) TABLET BY MOUTH IN THE MORNING AND 1 TAB INTHE EVENING 2 09/19/2018 04/22/2020 Discontinued (LIST CLEANUP)traMADol hydrochloride 50 mg oral tablet (17 sources)Opioid AgonistStart: 12-07-2023 End: 32-48-8236itlw 1 tablet by mouth every eight hours as needed for pain Tramadol 50 mg tablet Discontinued 50 MG PO Every 8 hours as needed for pain 15 7 December 1443:44pm January 17, 2024 12:04pmtrihexyphenidyl hydrochloride 2 mg oral tablet (1 source)Start: 03-28-2019 End: 83-99-2666iogq 1 tablet by mouth twice dailytrihexyphenidyl (ARTANE) 2 MG tablet TAKE 1 TABLET BY MOUTH TWICE DAILY FOR 30 DAYS 0 03/28/2019 04/22/2020 Discontinued (LIST CLEANUP) Problems Active Problems Problem ClassificationProblemDateDocumented DateEpisodic/ChronicAbdominal pain (20 sources)Flank pain; Translations: [Unspecified abdominal pain]07-03-2021 EpisodicAdministrative/social admission (2 sources)Treatment plan given; Translations: [Counseling, unspecified] 63-26-6396SnaopvbgAeotvote reactions (5 sources)Acute urticaria; Translations: [Other urticaria]62-78-5299Gpktlbfe Anxiety disorders (20 sources)Mixed anxiety and depressive disorder; Translations: [Anxiety disorder, unspecified]55-91-5237NkjaejpOzexmbwfd-deficit, conduct, and disruptive behavior disorders (20 sources)Attention deficit hyperactivity disorder, predominantly inattentive type; Translations: [Attention-deficit hyperactivity disorder, predominantly inattentive type]70-62-7002NnwkecmStofcjgcg-deficit, conduct, and disruptive behavior disorders (1 source)Attention-deficit hyperactivity disorder, predominantly inattentive typeChronicAttention-deficit, conduct, and disruptive behavior disorders (20 sources)Attention deficit hyperactivity disorder; Translations: [Attention- deficit hyperactivity disorder, predominantly inattentive type]ChronicBiliary tract disease (4 sources)Nlrcywhzj30-84-1839UdpouxxuLtgioxzjzquin and procreative management (14 sources)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 partner; Translations: [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]Onset: 415320-72-8610JlvobrxaVctjovmprz and other anemia (19 sources)Anemia; Translations: [Anemia, unspecified]13-59-9556Sokfhnaz Deficiency and other anemia (20 sources)Iron deficiency anemia; Translations: [Iron deficiency anemia, unspecified]83-30-8137XhqsstgqDhnqajqmhy and other anemia (4 sources)Anemia, unspecified; Translations: [Anemia, unspecified]06-10-2022 EpisodicDeficiency and other anemia (4 sources)Iron deficiency anemia, unspecified; Translations: [Iron deficiency anemia, unspecified]67-60-6060SmdqljpzZhtnbafpqi and other anemia (2 sources)Other iron deficiency anemiasEpisodicDisorders usually diagnosed in infancy, childhood, or adolescence (20 sources)Non-organic primary nocturnal enuresis; Translations: [Enuresis not due to a substance or known physiological condition]ChronicEsophageal disorders (20 sources)Gastroesophageal reflux disease without esophagitis; Translations: [Gastro-esophageal reflux disease without esophagitis]Onset: 07-16-2021 Resolved: 23-18-5699AnuguyzVmzxfr infertility (20 sources)Anovulation; Translations: [Female infertility associated with anovulation]Onset: 092577-02-8533QymqazuCpzyb of unknown origin (16 sources)Fever; Translations: [Fever, unspecified]70-23-0639Oytncilf Genitourinary symptoms and ill-defined conditions (2 sources)Painful micturition, unspecified; Translations: [Other microscopic hematuria]EpisodicHeadache; including migraine (1 source)Headache; including migraine; Translations: [Headache, unspecified] Onset: 42-84-9721Xcnrxzfynf during ; abruptio placenta; placenta previa (4 sources)Bleeding from female genital tract during ; Translations: [Antepartum hemorrhage, unspecified, unspecified trimester]Onset: 10-18-2024 93-18-4205RyeskukjCjvkgmfttmwyl and screening for infectious disease (8 sources)Patient encounter status; Translations: [Encounter for screening for infectious and parasitic diseases, unspecified]Onset: EpisodicMenstrual disorders (20 sources)Menorrhagia; Translations: [Excessive and frequent menstruation with regular cycle]ChronicMood disorders (20 sources)Bipolar disorder; Translations: [Bipolar affective disorder, currently depressed, mild]Onset: 461500-83-8212CcjwfwbSiqcin and vomiting (16 sources)Vomiting; Translations: [Vomiting, unspecified]06-68-0511Ittupgui Nutritional deficiencies (20 sources)Vitamin D deficiency; Translations: [Vitamin D deficiency, unspecified]Onset: 01-12-2019 Resolved: 096678-76-6930XbvqzgxFjqcohxxzmp deficiencies (4 sources)Iron deficiency; Translations: [Vitamin A deficiency, unspecified] Onset: 07-16-2021 Resolved: 14-63-1570DhjlxjosOpadcymrhdbdda (20 sources)Arthritis of shoulder region joint; Translations: [Primary osteoarthritis, unspecified shoulder]ChronicOther complications of (5 sources)Maternal obesity complicating , childbirth and the puerperium, antepartum; Translations: [Obesity complicating , second trimester]05-44-2323BijhaopWdvti complications of (1 source)Obesity complicating , second trimester; Translations: [Obesity complicating , second trimester]Onset: 13-47-1664WgyatntBvnpq complications of (4 sources)Supervision of resulting from assisted reproductive technology, first trimester; Translations: [ resulting from assisted reproductive technology]Onset: 153688-25-5470LqzlcwayUhyhe complications of (2 sources)Conceived by in vitro fertilization; Translations: [Supervision of resulting from assisted reproductive technology, first trimester] 37-28-8835BbraailaWyyku complications of (12 sources)Hypothyroidism in ; Translations: [Endocrine, nutritional and metabolic diseases complicating , second trimester]Onset: 377218-51-1142OuprnjeeMdtaa complications of (9 sources)Bipolar disorder; Translations: [Other mental disorders complicating , second trimester]Onset: 075218-75-4839RyfpdcqtVvbfh complications of (2 sources)Supervision of resulting from assisted reproductive technology, unspecified trimester; Translations: [ resulting from assisted reproductive technology]Onset: 306420-90-1297SkwfawrbGnklj complications of (8 sources)Headache; Translations: [Other specified related conditions, second trimester]Onset: 464789-36-4788GjkrmpecGkkwv complications of (1 source)Other specified related conditions, second trimester; Translations: [Other specified related conditions, second trimester] Onset: 64-67-9330UsbdcmizOfblf complications of (1 source)Bariatric surgery status complicating , unspecified trimester; 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 complicating , unspecified trimester]Onset: 32-73-6047LuqvqoqqIlfed complications of (1 source)Endocrine, nutritional and metabolic diseases complicating , second trimester; Translations: [Endocrine, nutritional and metabolic diseases complicating , second trimester]Onset: 48-75-1501HhdhflweMwanw complications of (1 source)Other mental disorders complicating , second trimester; Translations: [Other mental disorders complicating , second trimester] Onset: 74-15-9011WlzlchxrIovra connective tissue disease (4 sources)Plantar qvzvlxqwi41-87-3528RorptvhaHakaa connective tissue disease (1 source)Lateral epicondylitis, right elbowEpisodicOther connective tissue disease (2 sources)Bursitis of right shoulderEpisodicOther connective tissue disease (20 sources)Disorder of ligament, unspecified site; Translations: [Laxity of ligament]EpisodicOther connective tissue disease (14 sources)Laxity of ligament; Translations: [Disorder of ligament, unspecified site]49-43-9757YowjwmjrRardtzz on above:right shoulderOther connective tissue disease (4 sources)Bilateral plantar fasciitis; Translations: [Plantar fasciitis, bilateral]Onset: Other female genital disorders (20 sources)Abnormal uterine bleeding; Translations: [Other specified abnormal uterine and vaginal bleeding]37-35-1752CcrsqgmLlfog gastrointestinal disorders (15 sources)Constipation; Translations: [Constipation, unspecified]06-08-2023 EpisodicOther gastrointestinal disorders (1 source)Constipation, unspecified; Translations: [Constipation, unspecified] 66-47-8404SnxodkbiNawme gastrointestinal disorders (11 sources)History of bypass of stomach; 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]Onset: 886578-58-1347HxucslinYfpxu hematologic conditions (4 sources)H/O: anemia - iron deficient; Translations: [Personal history of diseases of the blood and blood-forming organs and certain disorders involving the immune mechanism]59-82-3837HuqmcytvOfept inflammatory condition of skin (1 source)Erythema intertrigoEpisodicOther nervous system disorders (20 sources)Chronic pain; Translations: [Other chronic pain]31-95-3278Mnauobb Other nervous system disorders (2 sources)Other chronic pain; Translations: [Other chronic pain]ChronicOther nervous system disorders (12 sources)Carpal tunnel syndrome of right wrist; Translations: [Carpal tunnel syndrome, right upper limb]08-76-5428CbjhvopHxoar nervous system disorders (20 sources)Carpal tunnel syndrome, right upper limb; Translations: [Carpal tunnel syndrome]16-19-5262DwotroqMegfq nervous system disorders (1 source)Postoperative pain ; Translations: [Post-op pain]EpisodicOther nervous system disorders (14 sources)Numbness of hand; Translations: [Anesthesia of skin]10-13-2023 EpisodicOther nervous system disorders (13 sources)Anesthesia of skin; Translations: [Disturbance of skin sensation] 42-60-1145GrzcjhasEzgds non-traumatic joint disorders (16 sources)Derangement of right [...] right shoulder joint; Translations: [Other instability, right shoulder]28-32-8764QulsykvqYnlvz nutritional; endocrine; and metabolic disorders (8 sources)Body mass index 40+ - severely obese; Translations: [Morbid obesity with BMI of 50.0-59.9, adult]Onset: 12-05-2018 Resolved: 462398-58-2460PnxhbcaOrqbf nutritional; endocrine; and metabolic disorders (4 sources)Morbid -79-8138PwsnyxsAnkxm and delivery including normal (16 sources)Early stage of ; Translations: [Encounter for supervision of normal , unspecified, unspecified trimester]Onset: 09-03-2024 85-34-4639LfzrsfkyNfawz screening for suspected conditions (not mental disorders or infectious disease) (5 sources)Thyroid function tests abnormal; Translations: [Abnormal results of thyroid function studies]Onset: 541691-97-4499GkjmlsbbArzqr skin disorders (1 source)Follicular disorder, unspecifiedEpisodicResidual codes; unclassified (20 sources)Obstructive sleep apnea syndrome; Translations: [Obstructive sleep apnea (adult) (pediatric)]89-73-6986OeegwrgLjwleth on above:patient denies. sleep study 2010Residual codes; unclassified (18 sources)Other specified postprocedural states; Translations: [Other postprocedural status]Onset: 07-16-2021 Resolved: 95-43-5599XkjkssdsOhovfsxi codes; unclassified (15 sources)Chill; Translations: [Chills (without fever)]31-23-7024Wechoxug Residual codes; unclassified (20 sources)History of sleeve gastrectomy; Translations: [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]]97-22-2394AtdooqkhFxfjinp on above:Aprilesidual codes; unclassified (1 source)Chills (without fever); Translations: [Chills (without fever)] 05-06-8589CxtckrqbVzxsqagi codes; unclassified (1 source)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]; Translations: [Personal history of surgery to other organs]55-55-8235EoyfyuxcYnxfaghx codes; unclassified (9 sources)History of arthroscopic procedure on shoulder; Translations: [Other specified postprocedural states]40-86-8774QvbxdnftVakseoup codes; unclassified (1 source)Gestation period, 9 weeks; Translations: [9 weeks gestation of ]63-18-8015LuhigzixFapfpcpn codes; unclassified (2 sources)Gestation period, 13 weeks; Translations: [13 weeks gestation of ]34-51-3134HzmkhqktAecntgkw codes; unclassified (2 sources)Gestation period, 18 weeks; Translations: [18 weeks gestation of ]85-97-9352QqltmqvdLtpvbjna codes; unclassified (1 source)Gestation period, 20 weeks; Translations: [20 weeks gestation of ]79-40-5639EfmxqzipLlmygvzd codes; unclassified (2 sources)Gestation period, 22 weeks; Translations: [22 weeks gestation of ]73-99-7101DxvrfxojWikemwxw codes; unclassified (2 sources)Gestation period, 26 weeks; Translations: [26 weeks gestation of ]91-83-1401PpehtzfuUzxydmcs codes; unclassified (2 sources)Gestation period, 29 weeks; Translations: [29 weeks gestation of ]38-88-0149UgxhkpyoIluizmmm codes; unclassified (2 sources)Gestation period, 31 weeks; Translations: [31 weeks gestation of ]86-93-3796GlvswtlvFoiq and subcutaneous tissue infections (20 sources)Abscess; Translations: [Cutaneous abscess, unspecified]08-01-2021 EpisodicSprains and strains (20 sources)Strain of unspecified muscle, fascia and tendon at shoulder and upper arm level, right arm, initialencounter; Translations: [Strain of other muscles, fascia and tendons at shoulder and upper arm level, right arm, initial encounter]EpisodicSubstance-related disorders (4 sources)Marijuana user; Translations: [Marijuana use]Onset: 12-05-2018 10-91-3952Qtcjlkp disorders (20 sources)Hypothyroidism; Translations: [Acquired hypothyroidism]Onset: 12-05-2018 Resolved: 229779-00-3016YfosmllMsyjvhz disorders (6 sources)Disorder of thyroid gland; Translations: [Disorder of thyroid, unspecified]23-20-9202LvpcefvuOtsuctgjabyf (2 sources)History of sleeve gastrectomy; Translations: [Status post laparoscopic sleeve gastrectomy]Onset: 782702-37-1386Mnfgwlvmrhbd (5 sources)Patient encounter status; Translations: [Pre-op testing]09-03-2018 Unclassified (1 source) 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)51-65-1923Dwstovcnmmhs (20 sources)OB RemindersOnset: 42-10-611625899472-09-7591Tdjrfovnxiob (2 sources)keep next scheduled appointmentUnclassified (1 source)IUI pregnancyOnset: 98-27-1075Btoejugyhmmc (1 source)Pee's ThyroiditisOnset: 12-05-2024 Past or Other Problems Problem ClassificationProblemDateDocumented DateEpisodic/ChronicScreening and history of mental health and substance abuse codes (1 source)Personal history of nicotine dependenceOnset: 07-16-2021 Resolved: 85-93-0567HwxqtcycLoeutlnvvjov (3 sources)History of bypass of plmbwcy23-02-2739Ojohotdqwchy (1 source)Encounter for supervision of resulting from assisted reproductive technology, ydbjnwxsfv84-94-8743BTTKTGN: Highlighted row has been ruled out!Unclassified (1 source)No known active odbbwhsn34-16-9041 Results Test NameValueInterpretationReference RangeFacilityUS OB BPP W NON-STRESS on 39-16-7352[place]av[place], [place] [address] Ultrasound Report Signed Patient: JAZ SANDERS MR#: [id number] : 1995 Acct:[id number] Age/Sex: 29 / F ADM Date: 02/25/25 Loc: US Attending Dr: Les Martinez D.O. Ordering Physician: Les Martinez D.O. Date of Service: 02/25/25 Procedure(s): US OB BPP w non-stress Accession Number(s): [id number] cc: Les Martinez D.O.; AMANDA FORD [place] [id number] Patient Name: JAZ SANDERS MRN: [id number] date: 1995 Sex: F Assigned Patient Location: [facility] Current Patient Location: Accession/Order Number: [id number] Exam Date: 02/25/2025 14:03 Report Date: 02/26/2025 08:30 At the request of: LES MARTINEZ DO Procedure: US OB BPP w non-stress BIOPHYSICAL PROFILE: CLINICAL INFORMATION: TSH DEFICIENCY E03.8 COMPARISON: 01/21/2025 There is a single live intrauterine gestation in cephalic presentation. The reported gestational age is 31 weeks 6 days. The heart rate measures 126 beats per minute. FINDINGS: TONE: 1 or more episodes of activity extension and flexion of extremity or opening and closing of the hand [Y] 2/2 GROSS BODY MOVEMENTS: 3 or more discrete body or limb movements [Y] 2/2 BREATHING MOVEMENTS: 1 or more episodes of breathing lasting at least 30 seconds [Y] 2/2 STARR: A single deepest vertical pocket of amniotic fluid greater than 2 cm [Y] 2/2 STARR: 17.9 cm Total score: 8/8 US/US OB BPP w non-stress IMPRESSION: NORMAL BIOPHYSICAL PROFILE. Impression dictated by: Alana Umana M.D. 02/26/2025 8:30 AM Dictation Location: [place] [address] Electronically authenticated by: [id number] Y Date: 02/26/2025 08:30 Dictated By: Alana Umana M.D. Signed By: 02/26/25831 DD/ 9 TD/TT: Assistant Teacher:TBHRadiology, Radiologist, MD - 02/26/2025 [place] [address] Ultrasound Report Signed Patient: JAZ SANDERS MR#: [id number] : 1995 Acct:[id number] Age/Sex: 29 / F ADM Date: 02/25/25 Loc: US Attending Dr: Les Martinez D.O. Ordering Physician: Les Martinez D.O. Date of Service: 02/25/25 Procedure(s): US OB BPP w non-stress Accession Number(s): [id number] cc: Les Martinez D.O.; AMANDA FORD [address] [address] Patient Name: JAZ SANDERS MRN: [id number] date: 1995 Sex: F Assigned Patient Location: [facility] Current Patient Location: Accession/Order Number: [id number] Exam Date: 02/25/2025 14:03 Report Date: 02/26/2025 08:30 At the request of: LES MARTINEZ DO Procedure: US OB BPP w non-stress BIOPHYSICAL PROFILE: CLINICAL INFORMATION: TSH DEFICIENCY E03.8 COMPARISON: 01/21/2025 There is a single live intrauterine gestation in cephalic presentation. The reported gestational age is 31 weeks 6 days. The heart rate measures 126 beats per minute. FINDINGS: TONE: 1 or more episodes of activity extension and flexion of extremity or opening and closing of the hand [Y] 2/2 GROSS BODY MOVEMENTS: 3 or more discrete body or limb movements [Y] 2/2 BREATHING MOVEMENTS: 1 or more episodes of breathing lasting at least 30 seconds [Y] 2/2 STARR: A single deepest vertical pocket of amniotic fluid greater than 2 cm [Y] 2/2 STARR: 17.9 cm Total score: 8/8 US/US OB BPP w non-stress IMPRESSION: NORMAL BIOPHYSICAL PROFILE. Impression dictated by: Alana Umana M.D. 02/26/2025 8:30 AM Dictation Location: [place] [address] Electronically authenticated by: [id number] Y Date: 02/26/2025 08:30 Dictated By: Alana Umana M.D. Signed By: 02/26/25831 DD/ 9 TD/TT: Assistant Teacher: GUDELIA HealthcareRadiology Study observation (narrative)NOM[facility] HealthcareUS OB BPP W NON-STRESSOrdered By: Radiologist Radiology on 92-88-8144KFZIWright Memorial Hospital Work Phone: aLL THYROID STIM HORMONEon 21-26-1561MYL Qn1.347 m[IU]/LNOMS HealthcareCLINISYNCNOMS HealthcareUrinalysis macro (dipstick) panel (U)on 44-81-3295Gonsthbzz, UANegativeNegative - 4(70) +++ mg/dLNOMS Healthcare Blood, UANegativeNegative - 50 Yehuda/mcLNOMS HealthcareClarity, UAClearNOMS HealthcareColor, UAYellowNOMS HealthcareGlucose, UANegativeNegative - 2000(110) ++++ mg/dLNOMO HealthcareInterpretation and review of laboratory resultsNormal NOMS HealthcareKetones, UANegativeNegative - 160(16) ++++ mg/dLNOMS Healthcare Leukocytes, UANegativeNegative - 500+++ Kourtney/mcLNOMO HealthcareNitrite, UA NegativeNegative - PositiveNOMS HealthcarepH, UA6.05 - 9NOMS HealthcareProtein, UANegativeNegative - 2000(20) ++++ mg/dLNOMS HealthcareSpec Grav, UA1.0201 - 1.03NOMO HealthcareUrobilinogen, UA1.00.2 - 12 mg/dLNOMS HealthcareNOMS HealthcareUrinalysis macro (dipstick) panel (U)on 03-71-1005Nlyalqedr, UA NegativeNegative - 4(70) +++ mg/dLNOMO HealthcareBlood, UANegativeNegative - 50 Yehuda/mcLNOMO HealthcareClarity, UAClearNOMS HealthcareColor, UAYellowNOMO HealthcareGlucose, UANegativeNegative - 2000(110) ++++ mg/dLNOMO Healthcare Interpretation and review of laboratory resultsAbnormalNOMS HealthcareKetones, UAPositiveNegative - 160(16) ++++ mg/dLSANPETE VALLEY HOSPITAL HealthcareLeukocytes, UATrace Negative - 500+++ Kourtney/mcLSANPETE VALLEY HOSPITAL HealthcareNitrite, UANegativeNegative - Positive NOMS HealthcarepH, UA6.55 - 9NOMS HealthcareProtein, UANegativeNegative - 2000(20) ++++ mg/dLNOMO HealthcareSpec Grav, UA1.0101 - 1.03[facility] Urobilinogen, UA2.00.2 - 12 mg/dLNOMS [facility] East CampusNOMS HealthcareUS OB FOLLOW UP TRANSABDOMINAL APPROACHon 7345UG OB FOLLOW UP TRANSABDOMINAL APPROACH FINDINGS: Comparison December 04, 2024. A single, [...] Delivery: 04/23/25 Gestational Age as of 01/16/2025: 10i8iSnudiimvsf macro (dipstick) panel (U)on 45-95-9451Qivdbyobq, UANegativeNegative - 4(70) +++ mg/dLNOMS HealthcareBlood, UANegativeNegative - 50 Yehuda/mcLNOMS HealthcareClarity, UAClearNOMS Healthcare Color, UAYellowNOMS HealthcareGlucose, UANegativeNegative - 2000(110) ++++ mg/dL N[facility] HealthcareInterpretation and review of laboratory resultsNormalNOMS HealthcareKetones, UANegativeNegative - 160(16) ++++ mg/dLNOMS Healthcare Leukocytes, UANegativeNegative - 500+++ Kourtney/mcLNOMS HealthcareNitrite, UA NegativeNegative - PositiveNOMS HealthcarepH, UA75 - 9NOMS HealthcareProtein, UA NegativeNegative - 2000(20) ++++ mg/dLNOMS HealthcareSpec Grav, UA1.011 - 1.03 NOMS HealthcareUrobilinogen, UA2.00.2 - 12 mg/dLNOMS HealthcareNOMS Healthcare ALL THYROID STIM HORMONEon 99-31-5499BEK Qn2.449 m[IU]/LNOMS HealthcareCLINISYNC NOMS HealthcareALL CBC WITH AUTO DIFFon 89-67-9977KYLFJNRGH ABSOLUTE TYDM9EUXA HealthcareBasophils/100 WBC (Bld)0.3 %0.2 - 2.0 %NOMS HealthcareEosinophils/100 WBC (Bld)1.2 %0.9 - 7.0 %[facility] HealthcareErythrocyte distribution width (RBC) [Ratio]13.2 %11.0 - 15.0 %[facility] HealthcareHematocrit (Bld) [Volume fraction]35.6 %Low36.0 - 48.0 %[facility] HealthcareHemoglobin (Bld) [Mass/Vol]12 g/dL12.0 - 16.0 g/dLWright Memorial HospitalIMMATURE GRANULOCYTES ABS AUTO0.1HighNOResearch Medical Center-Brookside CampusImmature granulocytes/100 WBC (Bld)0.8 %High0.0 - 0.5 %[facility] HealthcareInterpretation and review of laboratory resultsAbnormalWright Memorial HospitalLYMPHOCYTES ABSOLUTE AUTO2.3 NOMWashington University Medical CenterLymphocytes/100 WBC (Bld)19.7 %Low20.5 - 60.0 %[facility] HealthcareH (RBC) [Entitic mass]29.6 pg26.7 - 34.0 pgWright Memorial HospitalMCHC (RBC) [Mass/Vol] 33.7 g/dL29.9 - 35.2 g/dLWright Memorial HospitalMCV (RBC) [Entitic vol]87.7 fL81.0 - 99.0 fLWright Memorial HospitalMONOCYTES ABSOLUTE AUTO0.7NOResearch Medical Center-Brookside CampusMonocytes/100 WBC (Bld)6.2 %1.7 - 12.0 %[facility] Memorial HospitalNEUTROPHILS ABSOLUTE AUTO8.5HighNOResearch Medical Center-Brookside CampusNeutrophils/100 WBC (Bld)71.8 %43.0 - 75.0 %Wright Memorial HospitalPlatelet mean volume (Bld) [Entitic vol]8.7 fLLow9.5 - 13.5 fLWright Memorial HospitalTBH EO #0.1 Wright Memorial HospitalTB QNM432RANZMid [facility] RBC4.06LowNOResearch Medical Center-Brookside CampusTB WBC11.8 HighWright Memorial HospitalCLINISYNCNChildren's Mercy NorthlandGLUCOSE 1 HOURon 13-43-7689Wxugcrx [Mass/Vol]118 mg/dLNINF - 130 mg/dLFormerly [facility] Urinalysis macro (dipstick) panel (U)on 37-28-0977Inacgxexh, UANegativeNegative - 4(70) +++ mg/dLNOMS HealthcareBlood, UANegativeNegative - 50 Yehuda/mcLNOMS HealthcareClarity, UAClearNOMS HealthcareColor, UAYellowNOMS HealthcareGlucose, UANegativeNegative - 2000(110) ++++ mg/dLNOMO HealthcareInterpretation and review of laboratory resultsNormalNOMS HealthcareKetones, UANegativeNegative - 160(16) ++++ mg/dLNOMO HealthcareLeukocytes, UANegativeNegative - 500+++ Kourtney/mcL NOMS HealthcareNitrite, UANegativeNegative - PositiveNOMS HealthcarepH, UA75 - 9 NOMS HealthcareProtein, UANegativeNegative - 2000(20) ++++ mg/dLNOMO Healthcare Spec Grav, UA1.011 - 1.03NOMS HealthcareUrobilinogen, UA1.00.2 - 12 mg/dLNOMO HealthcareNOMO HealthcareNo Panel Informationon 37-01-8314XVOCUZQMERIJT HealthcareTB UA (CLEAN/CATCH) SOCIAL SERVICES/MICRO IF IND.on 35-84-4218PFGCWEYLC URINE NegativeNEGATIVENOMS HealthcareBLOOD URINESMALLAbnormalNEGATIVENOMO Healthcare Clarity (U)CLEARCLEARNOMS HealthcareColor (U)LT. YELLOWYELLOWNOMO Healthcare GLUCOSE URINE UANegativeNEGATIVE mg/dLNOMO HealthcareInterpretation and review of laboratory resultsAbnormalNOMS HealthcareKetones Ql (U)NegativeNEGATIVE mg/dL NOM HealthcareLeukocyte esterase Test strip Ql (U)NegativeNEGATIVENOMS HealthcareNITRITE URINENegativeNEGATIVENOMS HealthcarepH (U)5.5 [pH]5.0 - 9.0 NOMS HealthcarePROTEIN URINENegativeNEG/TRACE mg/dLNOMO HealthcareSPECIFIC GRAVITY URINE1.0151.005 - 1.025NOMO HealthcareURINE MICROSCOPIC INDICATEDYESNOMO HealthcareUROBILINOGEN URINE0.2 EU/dL0.2 - 1.0 EU/dLWright Memorial HospitalTB URINE MICROSCOPIC ONLYon 06-26-8464ZIHASFRJ URINENONE SEENNONE SEEN #/HPFNOMS HealthcareCAST SEEN?NONE SEENNONE SEEN #/LPFNOMS HealthcareCRYSTALS SEEN?None SeenNone Seen #/HPFNOMS HealthcareMUCUS URINENONE SEENNONE SEENNOMO Healthcare SQUAMOUS EPITHELIAL CELL URINERARENONE/RARE #/LPFNOResearch Medical Center-Brookside CampusTBH RBC0-2NOMS [facility] CampusTB WBCNONE SEENNONE SEEN #/HPFNOResearch Medical Center-Brookside CampusURINE CULTURE INDICATED NONOMS HealthcareUS OB 14+ WEEKS ANATOMY SCANon 57-29-7201NY OB 14+ WEEKS ANATOMY SCANEXAM: US OB [...] II, MD, PHD at 06-Dec-2024 08:04:50 AM [facility]adiologyNormalNot AvailableComment on above:Order Comment: US OB ANATOMY SINGLE W US OB CERVICAL LENGTH Estimated Date of Delivery: 04/23/25 Gestational Age as of 11/20/2024: 34a5vJurzxavhca complete panel (U)on 12-03-2024 Comment c/o urinary symptoms or increased blood pressure Name Collection Type:: VoidedFIRELANDSNOMS HealthcareAppearance of Urineon 11-48-6255Vckrkwkqhm (U)ClearNormalClearNOMS HealthcareComment on above:Order Comment: Comment c/o urinary symptoms or increased blood pressure Name Collection Type:: VoidedPerformed By: #### ADDONUAPLUS #### [address] [address] USABacteria [Presence] in Urine by AutomatedOrdered By: Eduardo Cruz on 65-24-8235Plsybjxq Auto Ql (U)1+ [HPF]HighNone SeenLicking Memorial HospitalBilirubin Test strip Ql (U)Ordered By: Eduardo Cruz on 63-05-5527Ukqiuafuv Ql (U)NegativeNegativeLicking Memorial HospitalColor of Urine by Autoon 72-92-9881Oncyy (U)Light-YellowNormalYellowNOMS Healthcare Comment on above:Order Comment: Comment c/o urinary symptoms or increased blood pressure Name Collection Type:: VoidedPerformed By: #### ADDONUAPLUS #### [facility] [address] [place] [address] USADipstick and Microscopicon 44-78-1537Lxwtghdj,Urine1+ [HPF]NormalNone SeenBaptist Health Fishermen’S Community Hospital Physician GroupComment on above:Order Comment: Comment c/o urinary symptoms or increased blood pressure Name Collection Type:: VoidedPerformed By: #### ADDONUAPLUS #### [address] [address] USABILIRUBIN,URINENegativeNormalNegativeNOMS Healthcare Comment on above:Order Comment: Comment c/o urinary symptoms or increased blood pressure Name Collection Type:: VoidedPerformed By: #### ADDONUAPLUS #### [place] [address] USAGlucose Ql (U)NormalNormalNormalNOMS HealthcareComment on above:Order Comment: Comment c/o urinary symptoms or increased blood pressure Name Collection Type:: VoidedPerformed By: #### ADDONUAPLUS #### [place] [address] USAHyaline Casts,UrineNoneNormal0-8The [facility] Physician GroupComment on above:Order Comment: Comment c/o urinary symptoms or increased blood pressure Name Collection Type:: VoidedPerformed By: #### ADDONUAPLUS #### [place] [address] USAMucus,Urine1+ [LPF]Critically abnormalThe [facility] Health Physician GroupComment on above:Order Comment: Comment c/o urinary symptoms or increased blood pressure Name Collection Type:: VoidedResult Comment: PERFORMED BY: [place] [address] PATHOLOGIST SUPERVISOR FRYER FARM DAMIÁN DOSHI M.D.Performed By: #### ADDONUAPLUS #### [place] [address] USANITRITE,URINENegativeNormalNegativeNOMS HealthcareComment on above:Order Comment: Comment c/o urinary symptoms or increased blood pressure Name Collection Type:: VoidedPerformed By: #### ADDONUAPLUS #### [place] [address] USAOCCULT BLOOD,URINE3+NormalNegativeNOMS HealthcareComment on above:Order Comment: Comment c/o urinary symptoms or increased blood pressure Name Collection Type:: VoidedResult Comment: PERFORMED BY: [place] [address] PATHOLOGIST SUPERVISOR FRYER FARM DAMIÁN DOSHI M.D.Performed By: #### ADDONUAPLUS #### [facility] [address] [place] [address] USAPROTEIN,URINENegativeNormalNegativeNOMS HealthcareComment on above:Order Comment: Comment c/o urinary symptoms or increased blood pressure Name Collection Type:: VoidedPerformed By: #### ADDONUAPLUS #### [place] [address] USARBC,Ixcxb1-2Kpqwvu9-4Aav [facility] Physician GroupComment on above:Order Comment: Comment c/o urinary symptoms or increased blood pressure Name Collection Type:: VoidedPerformed By: #### ADDONUAPLUS #### [place] [address] USASPECIFICY GRAVITY,URINE1.243Ujnway0.001-1.030NOMS HealthcareComment on above:Order Comment: Comment c/o urinary symptoms or increased blood pressure Name Collection Type:: VoidedPerformed By: #### ADDONUAPLUS #### [place] [address] USASquamous Epithelial Cell,Uwqfq9-5Kzivit8-5Ase [facility] Physician GroupComment on above:Order Comment: Comment c/o urinary symptoms or increased blood pressure Name Collection Type:: VoidedPerformed By: #### ADDONUAPLUS #### [place] [address] USAUROBILINOGEN,URINENormalNormalNormalNOMS HealthcareComment on above:Order Comment: Comment c/o urinary symptoms or increased blood pressure Name Collection Type:: VoidedPerformed By: #### ADDONUAPLUS #### [place] [address] USAWBC,Ymwyx7-8Izeuqt8-6Dxy [facility] Physician GroupComment on above:Order Comment: Comment c/o urinary symptoms or increased blood pressure Name Collection Type:: VoidedPerformed By: #### ADDONUAPLUS #### [place] [address] USAEpithelial cells.squamous [#/area] in Urine sediment by Automated countOrdered By: Eduardo Cruz on 88-87-9011Dzmprdxdux cells.squamous Auto (Urine sed) [#/Area]1-2 [HPF]0-2FGalion Hospital Erythrocytes [#/area] in Urine sediment by Automated countOrdered By: Eduardo Cruz on 33-12-4565ERY Auto (Urine sed) [#/Area]1-2 [HPF]0-4FGalion HospitalGlucose [Mass/volume] in Urine by Test stripOrdered By: Eduardo Cruz on 75-72-4040Pqkusqg Test strip (U) [Mass/Vol]Normal mg/dLNormalLicking Memorial HospitalHemoglobin Test strip Ql (U)Ordered By: Eduardo Cruz on 64-88-6763Kmhloxibso Ql (U)3+HighNegativeLicking Memorial Hospital Hyaline casts [#/area] in Urine sediment by Automated countOrdered By: Eduardo Cruz on 58-27-6702Qfxkzdb casts Auto (Urine sed) [#/Area]None [LPF]0-8Licking Memorial HospitalKetones [Presence] in Urine by Test stripon 12-02-2024 Ketones Ql (U)NegativeNormalNegativeNOMS HealthcareComment on above:Order Comment: Comment c/o urinary symptoms or increased blood pressure Name Collection Type:: VoidedPerformed By: #### ADDONUAPLUS #### [facility] [address] [place], [place] [id number] USALeukocyte esterase [Presence] in Urine by Test stripon 59-38-5688Djujzqdea esterase Test strip Ql (U)NegativeNormalNegativeNOMS HealthcareComment on above:Order Comment: Comment c/o urinary symptoms or increased blood pressure Name Collection Type:: VoidedPerformed By: #### ADDONUAPLUS #### [facility] [address] [place], [place] [id number] USALeukocytes [#/area] in Urine sediment by Automated count Ordered By: Eduardo Cruz on 30-04-1612CFT Auto (Urine sed) [#/Area]1-2 [HPF]0-4 [facility] HospitalMucus [Presence] in Urine by AutomatedOrdered By: Eduardo Cruz on 26-66-6334Mjkgn Auto Ql (U)1+ [LPF]AbnormalLicking Memorial HospitalNitrite Test strip Ql (U)Ordered By: Eduardo Cruz on 20-66-2483Daceogv Ql (U)NegativeNegGreene Memorial HospitalProtein Test strip (U) [Mass/Vol]Ordered By: Eduardo Cruz on 37-19-3693Zxkcsrq (U) [Mass/Vol]NegativeNegativeProtestant Hospitalpecific gravity Test strip (U) [Rel density]Ordered By: Eduardo Cruz on 46-15-6380Cofpkzme gravity (U) [Rel density]1.0171.001-1.030Licking Memorial HospitalUrobilinogen Test strip (U) [Mass/Vol]Ordered By: Eduardo Cisneroscarlos on 61-74-8753Qyruexnhyrrc (U) [Mass/Vol]Normal mg/dLNormFort Hamilton HospitalpH of Urine by Test stripon 74-78-7680xY (U)5.5 [pH]Normal5.0-9.0NOMS HealthcareComment on above:Order Comment: Comment c/o urinary symptoms or increased blood pressure Name Collection Type:: VoidedPerformed By: #### ADDONUAPLUS #### [place] [address] USABasophils Auto (Bld) [#/Vol]Ordered By: Elizabeth Osborne ([place]) on 73-19-0817Ubjvqbmpo (Bld) [#/Vol]0.0 10 3/uL0.0-0.1FGalion HospitalBasophils/100 WBC Auto (Bld)Ordered By: Elizabeth Osborne ([place]) on 79-12-4639Iwrbbkish/100 WBC (Bld)0.3 %0.2-2.0[facility] Eosinophils/100 WBC Auto (Bld)Ordered By: (Roman) Elizabeth Osborne on 12-01-2024 Eosinophils/100 WBC (Bld)1.8 %0.9-7.0[facility] Erythrocyte distribution width Auto (RBC) [Ratio]Ordered By: Elizabeth Osborne ([place]) on 53-08-7997Wlueucwbbtn distribution width (RBC) [Ratio]14.0 %11.0-15.0 [facility] HospitalGlobulin Calc (S) [Mass/Vol]Ordered By: (Owens) Elizabeth Osborne on 58-63-9805Kcdsmkrd (S) [Mass/Vol]3.6 g/dLLicking Memorial HospitalGlomerular filtration rate (GFR) estimation in non- AmericanOrdered By: (Roman) Elizabeth India on 81-81-1701CEM/1.73 sq M.predicted among non-blacks MDRD (S/P/Bld) [Vol rate/Area]mL/min/{1.73_m2}>=60 mL/min/1.73m 2FGalion HospitalHematocrit Auto (Bld) [Volume fraction]Ordered By: (Roman) Elizabeth Obsorne on 01-03-4566Whzarettel (Bld) [Volume fraction]38.0 %36.0-48.0Licking Memorial HospitalHemoglobin [Mass/volume] in BloodOrdered By: (Roman) Elizabeth Osborne on 26-04-2633Zvbtiwqyrw (Bld) [Mass/Vol]13.0 g/dL12.0-16.0L[facility] HospitalLaboratory - Chemistry and Chemistry - challengeOrdered By: (Roman) Elizabeth Osborne on 30-52-1226Aleqktjjg Ql (U)NegativeNEGATIVELicking Memorial Hospital Glucose (U) [Mass/Vol]NegativeNEGATIVELicking Memorial HospitalKetones Ql (U)NegativeNEGATIVELicking Memorial HospitalpH (U)6.0 [pH]5.0-9.0 Protestant Hospitalpecific gravity (U) [Rel density]1.025 1.005-1.025Licking Memorial HospitalUrobilinogen Qn (U)1.0 {Fabián'U}/dL0.2-1.0L[facility] HospitalAlbumin [Mass/Vol]3.1 g/dL Low3.4-5.0L[facility] HospitalALP [Catalytic activity/Vol]45 U/LLow 46-116L[facility] Memorial HospitalALT [Catalytic activity/Vol]20 U/L14-59 [facility] HospitalAST [Catalytic activity/Vol]14 U/LKfo28-62 [facility] HospitalBilirubin [Mass/Vol]0.4 mg/dL0.2-1.0[facility] HospitalCalcium [Mass/Vol]8.6 mg/dL8.5-10.1FGalion HospitalChloride [Moles/Vol]106 mmol/K35-512QyubtpcdmLicking Memorial HospitalCO2 [Moles/Vol]25.7 mmol/L21.0-32.0[facility] Creatinine [Mass/Vol]0.37 mg/dLLow0.55-1.02[facility] GFR/1.73 sq M.predicted MDRD (S/P/Bld) [Vol rate/Area]mL/min/{1.73_m2}>=60 mL/min/1.73m 2FGalion HospitalGlucose [Mass/Vol]61 mg/dLLow 74-106L[facility] Memorial HospitalPotassium [Moles/Vol]3.9 mmol/L3.5-5.1 [facility] HospitalProtein [Mass/Vol]6.7 g/dL6.4-8.2FDoctors Hospitalodium [Moles/Vol]139 mmol/M869-328UucfdjnxgLicking Memorial HospitalUrea nitrogen [Mass/Vol]3.0 mg/dLLow7.0-18.0L[facility] HospitalUrea nitrogen/Creatinine [Mass ratio]8.1 mg/mgLicking Memorial HospitalLaboratory - Hematology and Cell countsOrdered By: Elizabeth Osborne ([place]) on 24-58-0990Bcxifnen granulocytes/100 WBC (Bld)1.0 %High0.0-0.5 [facility] HospitalLaboratory - Specimen informationOrdered By: Elizabeth Osborne ([place]) on 46-05-6365Ulwrhpbjsb (U)CLEARCLEARFGalion HospitalColor (U)LT. YELLOWYELLOWLicking Memorial Hospital Laboratory - UrinalysisOrdered By: Elizabeth Osborne ([place]) on 54-80-5866Yiualrazv esterase Test strip Ql (U)NegativeNEGATIVELicking Memorial Hospital Nitrite Ql (U)NegativeNEGATIVELicking Memorial HospitalProtein Ql (U) NegativeNEG/TRACELicking Memorial HospitalLeukocytes [#/volume] corrected for nucleated erythrocytes in Blood by Automated counOrdered By: (Owens) Elizabeth Osborne on 62-90-1041UGI corrected for nucl RBC Auto (Bld) [#/Vol]10.0 10 3/uL4.0-11.0L[facility] HospitalLymphocytes Auto (Bld) [#/Vol]Ordered By: (Owens) Elizabethnura Thomason on 32-42-0553Vyrgwhsljun (Bld) [#/Vol]2.2 10 3/uL1.2-3.8[facility] HospitalLymphocytes/100 WBC Auto (Bld)Ordered By: (Owens) Elizabethnura Thomason on 86-81-7552Knobcimbubo/100 WBC (Bld)22.1 %20.5-60.0[facility] Auto (RBC) [Entitic mass]Ordered By: (Owens) Elizabethnura Thomason on 86-05-4804PEX (RBC) [Entitic mass] 29.8 pg26.7-34.0L[facility] Memorial HospitalMCHC Auto (RBC) [Mass/Vol] Ordered By: (Owens) Elizabethnura Thomason on 35-65-2508NQZH (RBC) [Mass/Vol]34.2 g/dL 29.9-35.2FGalion HospitalMCV Auto (RBC) [Entitic vol]Ordered By: (Owens) Elizabethnura Thomason on 78-97-0000YXN (RBC) [Entitic vol]87.2 fL81.0-99.0 [facility] HospitalMonocytes Auto (Bld) [#/Vol]Ordered By: (Owens) Elizabethnura Thomason on 17-25-7491Boqysoqgg (Bld) [#/Vol]0.7 10 3/uL0.3-0.8 [facility] HospitalMonocytes/100 WBC Auto (Bld)Ordered By: (Owens) Elizabeth [place] on 55-73-9890Zmlkexqxh/100 WBC (Bld)6.5 %1.7-12.0 [facility] HospitalNeutrophils Auto (Bld) [#/Vol]Ordered By: (Owens) Elizabeth [place] on 67-42-9781Dpsfobkratv (Bld) [#/Vol]6.9 10 3/uLHigh 1.4-6.5FGalion HospitalNeutrophils/100 WBC Auto (Bld)Ordered By: Angelina) Elizabeth Osborne on 29-56-5764Kwqaxkvjebp/100 WBC (Bld)68.3 %43.0-75.0 [facility] HospitalNo Panel InformationOrdered By: (Roman) Elizabeth Osborne on 67-38-1040Qcawz Microscopic ReviewNOLicking Memorial HospitalUrine Occult BloodNegativeNEGATIVELicking Memorial Hospital Eosinophils # (Auto)0.2 10 3/uL0.0-0.7FGalion HospitalImmature Granulocyte # (Auto)0.10 10 3/uLHigh0.00-0.03[facility] Platelet mean volume Auto (Bld) [Entitic vol]Ordered By: Elizabeth Osborne ([place]) on 25-88-1266Qmytbgrv mean volume (Bld) [Entitic vol]8.3 fLLow9.5-13.5FGalion HospitalPlatelets Auto (Bld) [#/Vol]Ordered By: Angelina) Elizabeth Osborne on 33-21-6237Amlzchahs (Bld) [#/Vol]177 10 3/sJ559-401ZokoagwshLicking Memorial HospitalRBC Auto (Bld) [#/Vol]Ordered By: Angelina) Elizabeth Osborne on 74-42-0704FYR (Bld) [#/Vol]4.36 10 6/uL4.20-5.40Protestant Hospitalerum or plasma albumin/globulin mass ratioOrdered By: (oRman) Elizabeth Osborne on 64-79-3003Jvoaauj/Globulin [Mass ratio]0.9 {ratio}Protestant Hospitalerum or plasma anion gap determinationOrdered By: Angelina) Elizabeth Osborne on 48-19-9750Gbduk gap [Moles/Vol]11.2 mmol/LFGalion HospitalBasophils Auto (Bld) [#/Vol]Ordered By: Chris Dickerson on 39-21-3516Ztzpyzgrr (Bld) [#/Vol]0.0 10 3/uL0.0-0.1FGalion HospitalBasophils/100 WBC Auto (Bld)Ordered By: Chris Dickerson on 11-30-2024 Basophils/100 WBC (Bld)0.2 %0.2-2.0[facility] Eosinophils/100 WBC Auto (Bld)Ordered By: Chris Dickerson on 11-30-2024 Eosinophils/100 WBC (Bld)1.7 %0.9-7.0[facility] Erythrocyte distribution width Auto (RBC) [Ratio]Ordered By: Chris Dickerson on 97-65-2455Dunhclvilaz distribution width (RBC) [Ratio]14.1 %11.0-15.0[facility] HospitalGlobulin Calc (S) [Mass/Vol]Ordered By: Chris Dickerson on 22-91-8902Skbbhhcj (S) [Mass/Vol]3.3 g/dLLicking Memorial Hospital Glomerular filtration rate (GFR) estimation in non- AmericanOrdered By: Chris Dickerson on 65-43-3907MHO/1.73 sq M.predicted among non-blacks MDRD (S/P/Bld) [Vol rate/Area]mL/min/{1.73_m2}>=60 mL/min/1.73m 2FGalion HospitalHematocrit Auto (Bld) [Volume fraction]Ordered By: Chris Dickerson on 46-30-6850Zarrmwolhk (Bld) [Volume fraction]36.2 %36.0-48.0[facility] HospitalHemoglobin [Mass/volume] in BloodOrdered By: Chris Dickerson on 19-37-4163Jhigzvndmv (Bld) [Mass/Vol]12.6 g/dL12.0-16.0[facility] HospitalLaboratory - Chemistry and Chemistry - challengeOrdered By: Chris Dickerson on 96-13-2784Lcnovdlne Ql (U)NegativeNEGATIVELicking Memorial HospitalGlucose (U) [Mass/Vol]NegativeNEGATIVELicking Memorial HospitalKetones Ql (U)NegativeNEGATIVELicking Memorial HospitalpH (U)6.0 [pH]5.0-9.0Protestant Hospitalpecific gravity (U) [Rel density] 1.0151.005-1.025L[facility] Memorial HospitalUrobilinogen Qn (U)1.0 {Fabián'U}/dL0.2-1.0[facility] HospitalAlbumin [Mass/Vol]3.1 g/dL Low3.4-5.0[facility] HospitalALP [Catalytic activity/Vol]47 U/L 46-116L[facility] HospitalALT [Catalytic activity/Vol]20 U/L14-59 [facility] HospitalAST [Catalytic activity/Vol]12 U/OTgf47-35 [facility] HospitalBilirubin [Mass/Vol]0.3 mg/dL0.2-1.0[facility] HospitalBilirubin.direct [Mass/Vol]0.1 mg/dL0.0-0.2FGalion HospitalCalcium [Mass/Vol]8.8 mg/dL8.5-10.1FGalion HospitalChloride [Moles/Vol]108 mmol/ULups83-902MstlrjvuqLicking Memorial HospitalCO2 [Moles/Vol]26.0 mmol/L21.0-32.0[facility] Creatinine [Mass/Vol]0.32 mg/dLLow0.55-1.02[facility] GFR/1.73 sq M.predicted MDRD (S/P/Bld) [Vol rate/Area]mL/min/{1.73_m2}>=60 mL/min/1.73m 2FGalion HospitalGlucose [Mass/Vol]74 mg/qJ60-155 [facility] HospitalPotassium [Moles/Vol]4.1 mmol/L3.5-5.1FGalion HospitalProtein [Mass/Vol]6.4 g/dL6.4-8.2FDoctors Hospitalodium [Moles/Vol]142 mmol/F193-174JfdvhagtnLicking Memorial HospitalUrate [Mass/Vol]3.0 mg/dL2.6-6.0[facility] HospitalUrea nitrogen [Mass/Vol]7.0 mg/dL7.0-18.0[facility] HospitalUrea nitrogen/Creatinine [Mass ratio]21.9 mg/mgLicking Memorial Hospital Laboratory - Hematology and Cell countsOrdered By: Chris Dickerson on 11-30-2024 Immature granulocytes/100 WBC (Bld)0.7 %High0.0-0.5FGalion HospitalLaboratory - Specimen informationOrdered By: Chris Dickerson on 11-30-2024 Appearance (U)CLEARCLEARFGalion HospitalColor (U)LT. YELLOW YELLOWLicking Memorial HospitalLaboratory - UrinalysisOrdered By: Chris Dickerson on 88-70-9516Uqjelmsmo esterase Test strip Ql (U)SMALLAbnormal NEGATIVELicking Memorial HospitalMucus Ql (Urine sed)TRACEAbnormalNONE SEENLicking Memorial HospitalNitrite Ql (U)NegativeNEGATIVELicking Memorial HospitalProtein Ql (U)NegativeNEG/TRACELicking Memorial HospitalLeukocytes [#/volume] corrected for nucleated erythrocytes in Blood by Automated counOrdered By: Chris Dickerson on 62-81-0444VWU corrected for nucl RBC Auto (Bld) [#/Vol]8.7 10 3/uL4.0-11.0[facility] Lymphocytes Auto (Bld) [#/Vol]Ordered By: Chris Dickerson on 16-72-9650Jfkqlcaaqil (Bld) [#/Vol]2.0 10 3/uL1.2-3.8[facility] HospitalLymphocytes/100 WBC Auto (Bld)Ordered By: Chris Dickerson on 15-45-0921Prokaqpfsla/100 WBC (Bld) 22.9 %20.5-60.0[facility] Auto (RBC) [Entitic mass] Ordered By: Chris Dickerson on 55-05-7080CLB (RBC) [Entitic mass]30.0 pg26.7-34.0 [facility] HospitalMCHC Auto (RBC) [Mass/Vol]Ordered By: Chris Dickerson on 41-94-0425SOHM (RBC) [Mass/Vol]34.8 g/dL29.9-35.2FGalion HospitalMCV Auto (RBC) [Entitic vol]Ordered By: Chris Dickerson on 35-80-9058BHL (RBC) [Entitic vol]86.2 fL81.0-99.0[facility] HospitalMonocytes Auto (Bld) [#/Vol]Ordered By: Chris Dickerson on 11-30-2024 Monocytes (Bld) [#/Vol]0.6 10 3/uL0.3-0.8[facility] Monocytes/100 WBC Auto (Bld)Ordered By: Chris Dickerson on 71-98-2153Dcswpyayz/100 WBC (Bld)7.2 %1.7-12.0[facility] HospitalNeutrophils Auto (Bld) [#/Vol]Ordered By: Chris Dickerson on 20-94-9538Yjxhbydqmsz (Bld) [#/Vol]5.9 10 3/uL1.4-6.5FGalion HospitalNeutrophils/100 WBC Auto (Bld) Ordered By: Chris Dickerson on 17-60-2000Atmkdldokif/100 WBC (Bld)67.3 %43.0-75.0 [facility] HospitalNo Panel InformationOrdered By: Chris Dickerson on 16-98-7679Rbhgb BacteriaMODERATE #/HPFAbnormalNONE [facility] HealthUrine Culture ReflexedYE-[facility] Urine Occult BloodNegativeNEGATIVELicking Memorial HospitalUrine Other CastsNONE SEEN #/LPFNONE UC HealthUrine Other CrystalsNone Seen #/HPFNone [facility] CenterUrine RBC0-2 #/HPF0-2FGalion HospitalUrine Squamous Epithelial CellsFEW #/LPFAbnormalNONE/RARELicking Memorial HospitalUrine WBC0-2 #/HPF AbnormalNONE [facility] HealthEosinophils # (Auto)0.2 10 3/uL0.0-0.7FGalion HospitalImmature Granulocyte # (Auto)0.06 10 3/uLHigh0.00-0.03[facility] HospitalPlatelet mean volume Auto (Bld) [Entitic vol]Ordered By: Chris Dickerson on 27-56-8617Nuzzydxy mean volume (Bld) [Entitic vol]8.7 fLLow9.5-13.5FGalion HospitalPlatelets Auto (Bld) [#/Vol]Ordered By: Chris Dickerson on 56-63-7778Eenuqfwhm (Bld) [#/Vol] 185 10 3/bR699-546LpsruqrmdLicking Memorial HospitalRBC Auto (Bld) [#/Vol]Ordered By: Chris Dickerson on 04-44-9902NBD (Bld) [#/Vol]4.20 10 6/uL4.20-5.40Protestant Hospitalerum or plasma albumin/globulin mass ratioOrdered By: Chris Dickerson on 68-62-9677Hqirpty/Globulin [Mass ratio]0.9 {ratio}[facility] Hospitalerum or plasma anion gap determinationOrdered By: Chris Dickerson on 82-07-9041Srypc gap [Moles/Vol]12.1 mmol/LFGalion HospitalUrine Cultureon 18-55-5017Krsvumst identified Cx Nom (U)50,000 colonies/ml mixed bacterial skin contaminants 2 Days PERFORMED BY: [place] [address] PATHOLOGIST SUPERVISOR FRYER FARM DAMIÁN DOSHI M.D.NormalBaptist Health Fishermen’S Community Hospital Physician GroupComment on above: Performed By: #### CUU #### [place] [address] USARECURRENT VAGINITIS (HTRX)on 36-61-9029YSRYECNTN VAGINAE0 [facility] HealthcareATOPOBIUM VAGINAENot detectedNOMS HealthcareBVAB 2,3 (BACTERIAL VAGINOSIS ASSOCIATED BACTERIA 2, 3); MOBILUNCUS [id number] HealthcareBVAB 2,3 (BACTERIAL VAGINOSIS ASSOCIATED BACTERIA 2, 3); MOBILUNCUS SPPNot detectedNOMS HealthcareCANDIDA ALBICANS, PARAPSILOSIS, [id number] HealthcareCANDIDA ALBICANS, PARAPSILOSIS, TROPICALISNot detectedNOMS HealthcareCANDIDA GLABRATA0 [facility] HealthcareCANDIDA GLABRATANot detectedNOMS HealthcareCANDIDA [id number] HealthcareCANDIDA KRUSEINot detectedNOMS HealthcareCHLAMYDIA [id number] HealthcareCHLAMYDIA TRACHOMATISNot detectedNOMS HealthcareGARDNERELLA VAGINALIS0 [facility] HealthcareGARDNERELLA VAGINALISNot detectedNOMS HealthcareMEGASPHAERA (TYPES 1, 2)0NOMS HealthcareMEGASPHAERA (TYPES 1, 2)Not detectedNOMS Healthcare MYCOPLASMA WWSMCQQTLO0CTQW HealthcareMYCOPLASMA GENITALIUMNot detectedNOMS HealthcareNEISSERIA PTYQDIZMNME9MOWI HealthcareNEISSERIA GONORRHOEAENot detected NOMS HealthcareTRICHOMONAS ARCAVIWVN1ITLV HealthcareTRICHOMONAS VAGINALISNot detectedNOMS HealthcareNOMS HealthcareALL THYROID STIM HORMONEon 04-25-4295WTJ Qn1.702 m[IU]/LNOMS HealthcareCLINISYNCNOMS HealthcareAlpha-fetoprotein (AFP) measurement (fiiwykin-wl-hxpglg)Ordered By: Les Martinez on 45-40-1386IBD [MoM] 0.87.[facility] HospitalAssess gestational ageOrdered By: Les Martinez on 62-67-0848Cljvtoxivpq age18.0 weeks.[facility] Estimation of maternal age-specific risk of Down syndrome birthOrdered By: Les Martinez on 02-19-2493Qed [Time]30.1 yr.[facility] HospitalInsulin dependent diabetes mellitus detectionOrdered By: Les Martinez on 11-20-2024 Insulin dependent diabetes mellitus QlNo.[facility] Interpretation of serum or plasma second trimester quad maternal screen (narrative reOrdered By: Les Martinez on 85-75-7189Ryavyg trimester quad maternal screen Gonzales [Interp]Comment.[facility] HospitalComment on above: Interpretation: Screen NegativeThis result [...] and older.Second trimester quad maternal screen Gonzales [Interp]Negative.[facility] HospitalLaboratory - Chemistry and Chemistry - challengeOrdered By: Les Martinez on 56-34-0647FVP Qn1.702 m[IU]/L 0.358-3.740[facility] HospitalNo Panel InformationOrdered By: Les Martinez on 48-57-8954IYD Triple Screen CommentComment.[facility] HospitalComment on above:Gisel Gandhi, Ph.D., DABCCDirectorReferences: Available Upon Request.Multiples Of Median Cutoffs For AFP ElevationsSingleton 2.5 Black 2.8IDD 2.0 Twins 4.5 Abbreviation DefinitionsIDD - Insulin Dep DiabetesOSBR - Open Spina Bifida RiskFor further inquiries contact [employer] at [phone].This test was developed and its performance characteristicsdetermined by [employer]. It has not been cleared or approvedby the Food and Drug Administration.Performed at: [facility] [employer] [id number] [place], [place] [address] Director: Lorena Ellis [facility], Phone: [phone] Fetoprotein Results ReceivedReport.[facility] HospitalGestational Age Calculation MethodUltrasound.[facility] HospitalComment on above:18.0 on 11/20/2024Recalculations are not recommended when gestational datingby LMP and ultrasound are within 10 days. Maternal Quad Test [id number].[facility] HospitalMaternal RaceOther .[facility] HospitalMultiple PregnancyNo.Protestant Hospitalerum or plasma jxrrx-7-ygygccfmgxr measurement (mass/volume) Ordered By: Les Martinez on 57-94-4856RCA [Mass/Vol]27.6 ng/mL.[facility] HospitalUrinalysis macro (dipstick) panel (U)on 63-97-6915Feocntoxj, UA NegativeNegative - 4(70) +++ mg/dLNOMS HealthcareBlood, UANegativeNegative - 50 Yehuda/mcLNOMS HealthcareClarity, UAClearNOMS HealthcareColor, UAYellowNOMS HealthcareGlucose, UANegativeNegative - 2000(110) ++++ mg/dLNOMS Healthcare Interpretation and review of laboratory resultsAbnormalNOMO HealthcareKetones, UANegativeNegative - 160(16) ++++ mg/dLWright Memorial HospitalLeukocytes, UA2+Negative - 500+++ Kourtney/mcLNOResearch Medical Center-Brookside CampusNitrite, UANegativeNegative - PositiveNOMO HealthcarepH, UA85 - 9NOMO HealthcareProtein, UANegativeNegative - 2000(20) ++++ mg/dLWright Memorial HospitalSpec Grav, UA1.011 - 1.03NOResearch Medical Center-Brookside CampusUrobilinogen, UA1.0 0.2 - 12 mg/dLFormerly [facility] HospitalLaboratory - Chemistry and Chemistry - challengeOrdered By: Chris Dickerson on 37-08-5000Ywmuqvyuw Ql (U)Negative NEGATIVELicking Memorial HospitalGlucose (U) [Mass/Vol]NegativeNEGATIVE [facility] HospitalKetones Ql (U)NegativeNEGBrecksville VA / Crille HospitalpH (U)7.5 [pH]5.0-9.0[facility] Specific gravity (U) [Rel density]1.0101.005-1.025[facility] HospitalUrobilinogen Qn (U)1.0 {Fabián'U}/dL0.2-1.0[facility] HospitalLaboratory - Specimen informationOrdered By: Chris Dickerson on 11-17-2024 Appearance (U)CLEARCLEARFGalion HospitalColor (U)LT. YELLOW YELLOWLicking Memorial HospitalLaboratory - UrinalysisOrdered By: Chris Dickerson on 57-80-3866Tzqsloqip esterase Test strip Ql (U)NegativeNEGATIVE [facility] HospitalMucus Ql (Urine sed)NONE SEENNONE UC HealthNitrite Ql (U)NegativeNEGBrecksville VA / Crille HospitalProtein Ql (U)NegativeNEG/TRACELicking Memorial HospitalNo Panel InformationOrdered By: Chris Dickerson on 68-97-9515Jpjih BacteriaTRACE #/HPF AbnormalNONE UC HealthUrine Culture ReflexedNO [facility] HospitalUrine Occult BloodNegativeNEGBrecksville VA / Crille HospitalUrine Other CastsNONE SEEN #/LPFNONE SEENPsychiatric Hospitalelands Regional Medical CenterUrine Other CrystalsNone Seen #/HPFNone [facility] Medical CenterUrine RBCNONE SEEN #/HPF0-2FGalion HospitalUrine Squamous Epithelial CellsRARE #/LPFNONE/RARELicking Memorial HospitalUrine WBCNONE SEEN #/HPFNONE [facility] Ultrasound - Officeon 71-90-1730Obvuqzcbl Study observation (narrative)[facility]icWest[facility] SystemUrinalysis macro (dipstick) panel (U)on 10-37-2228Wmpbtvrts, UA NegativeNegative - 4(70) +++ mg/dLNOMS HealthcareBlood, [...] HealthcareAppearance of UrineOrdered By: Kassidy Arriaza on 26-45-2173Eiawsmuegv (U)ClearNormalClearLicking Memorial HospitalComment on above:Order Comment: Name Collection Type:: Clean- Voided MidstreamPerformed By: #### UA, CUU #### [place] [address] USABilirubin Test strip Ql (U)Ordered By: Kassidy Arriaza on 51-69-0271Ckemmrdvi Ql (U)NegativeNegGreene Memorial Hospital Chlamydia/GC Amplificationon 05-71-7095Bbotwqsmu Trachomotis, NAANegativeNormal NegativeThe Cone Health Physician GroupComment on above:Order Comment: SOURCE OF SPECIMEN: GenitalPerformed By: #### GCCHLAMAMP #### [facility] , #### CUGEN #### [place] [address] USANeisseria Gonorrhoeae, NAANegativeNormalNegativeThe Cone Health Physician GroupComment on above:Order Comment: SOURCE OF SPECIMEN: GenitalResult Comment: Performed at: = - [facility] [id number] [place]: Dagmar Love MD, Phone: [phone] PERFORMED BY: [place] [address] PATHOLOGIST SUPERVISOR FRYER FARM DAMIÁN DOSHI M.D.Performed By: #### GCCHLAMAMP #### [facility] , #### CUGEN #### [place] [address] USAColor of Urine by AutoOrdered By: Kassidy Arriaza on 62-97-5162Ahcsi (U)ColorlessNormalYTriHealth Bethesda Butler HospitalComment on above:Order Comment: Name Collection Type:: Clean-Voided MidstreamPerformed By: #### UA, CUU #### [place] [address] USAGenital Cultureon 09-85-2139Mbshvcz CultureGenital Results Light Normal Urogenital Damián 2 Days No More GC Specimen not tested for Neisseria gonorrheae PERFORMED BY: [place] [address] PATHOLOGIST SUPERVISOR FRYER FARM ADMIÁN DOSHI M.D.NormalThe Cone Health Physician GroupComment on above: Performed By: #### GCCHLAMAMP #### [facility] , #### CUGEN #### [place] [address] USAGenital specimen bacteria identification by aerobic cultureOrdered By: Kassidy Arriaza on 49-76-8157Nhbofssd identified Aer cx Nom (Genital specimen)[facility] HospitalGlucose [Mass/volume] in Urine by Test stripOrdered By: Kassidy Arriaza on 25-91-4088Kybqjrc Test strip (U) [Mass/Vol]Normal mg/dLNormFort Hamilton HospitalHemoglobin Test strip Ql (U)Ordered By: Kassidy Arriaza on 86-20-3821Cssdwnarwx Ql (U)Negative [facility] Memorial HospitalKetones [Presence] in Urine by Test stripOrdered By: Kassidy Arriaza on 52-40-7622Ebqjlew Ql (U)TraceNormalBucyrus Community HospitalComment on above:Order Comment: Name Collection Type:: Clean-Voided MidstreamPerformed By: #### UA, CUU #### [facility] [address] [place] [address] USALaboratory - Microbiology and Antimicrobial susceptibility Ordered By: Kassidy Arriaza on 10-18-2024. trachomatis DNA AC+probe Ql (Unsp spec)NegativeNegGreene Memorial HospitalN. gonorrhoeae DNA AC+probe Ql (Unsp spec)NegativeNegGreene Memorial HospitalComment on above:Performed at: = - [facility] [id number] Director: Dagmar Love MD, Phone: [phone] esterase [Presence] in Urine by Test stripOrdered By: Kassidy Arriaza on 10-18-2024 Leukocyte esterase Test strip Ql (U)NegativeNormalTriHealth McCullough-Hyde Memorial HospitalComment on above:Order Comment: Name Collection Type:: Clean- Voided MidstreamPerformed By: #### UA, CUU #### [facility] [address] [place] [address] USANitrite Test strip Ql (U)Ordered By: Kassidy Arriaza on 29-63-9847Okzqkha Ql (U)NegativeNegGreene Memorial HospitalProtein Test strip (U) [Mass/Vol]Ordered By: Kassidy Arriaza on 77-72-4795Iydoker (U) [Mass/Vol]NegativeNegProtestant Hospitalpecific gravity Test strip (U) [Rel density]Ordered By: Kassidy Arriaza on 06-55-5387Ljbzhxvf gravity (U) [Rel density]1.0071.001-1.030[facility] HospitalUS OB <= 14 weeks fetuson 65-55-8801JL OB <= 14 weeks [facility] [place] [address] [place], [place] [address] Ultrasound Report Signed Patient: Jaz Sanders MR#: [id number] : 1995 Acct:[id number] Age/Sex: 29 / F ADM Date: 10/18/24 Loc: ER Room: Type: [facility] ER Attending Dr: Ordering Provider: Kassidy Arriaza [...] seen. Impression dictated by: Sravan Dickinson Jr., DRenaeORenae 10/18/2024 2:21 PM Dictation Location: [place] [address] Tech: Natalie Haji Transcribed By: MAITE 10/18/24 1421 Dictated By: Sravan Dickinson Jr, DO 10/18/24 1419 Signed By: 10/18/24 1421NoFormerly Park Ridge Health Physician GroupUnlisted Lab Teston 10-18-2024 ProMFederal Correction Institution Hospital SystemUrinalysison 68-22-1619Qrmlaceup,UrineNegativeNormal NegativeThe Cone Health Physician GroupComment on above:Order Comment: Name Collection Type:: Clean-Voided MidstreamPerformed By: #### UA, CUU #### [place] [address] USAGlucose Ql (U)NormalNormalNormTrinity Community Hospital Physician GroupComment on above:Order Comment: Name Collection Type:: Clean-Voided MidstreamPerformed By: #### UA, CUU #### [place] [address] USANitrite,UrineNegativeNormalNegativeBaptist Health Fishermen’S Community Hospital Physician GroupComment on above:Order Comment: Name Collection Type:: Clean-Voided MidstreamPerformed By: #### UA, CUU #### [place] [address] USAOccult Blood,UrineNegativeNormalNegativeThe Cone Health Physician GroupComment on above:Order Comment: Name Collection Type:: Clean- Voided MidstreamResult Comment: PERFORMED BY: [place] [address] PATHOLOGIST SUPERVISOR FRYER FARM DAMIÁN DOSHI M.D.Performed By: #### UA, CUU #### [place] [address] USAProtein,UrineNegativeNormalNegativeBaptist Health Fishermen’S Community Hospital Physician GroupComment on above:Order Comment: Name Collection Type:: Clean-Voided MidstreamPerformed By: #### UA, CUU #### [place] [address] USASpecificy Sterling,Urine1.227Dsdgtp3.001-1.030[facility] Physician GroupComment on above:Order Comment: Name Collection Type:: Clean- Voided MidstreamPerformed By: #### UA, CUU #### [place] [address] USAUrobilinogen,UrineNormalNormalNormalThe Cone Health Physician GroupComment on above:Order Comment: Name Collection Type:: Clean- Voided MidstreamPerformed By: #### UA, CUU #### [place] [address] USAUrine Cultureon 33-67-6048Ybcamjlq identified Cx Nom (U) <9,000 colonies/ml mixed bacterial skin contaminants 2 Days PERFORMED BY: [place] [address] PATHOLOGIST SUPERVISOR FRYER FARM DAMIÁN DOSHI M.D.NormalBaptist Health Fishermen’S Community Hospital Physician GroupComment on above: Performed By: #### CAESAR, CUU #### [facility] [address] [place] [address] USAUrine cultureOrdered By: Kassidy Arriaza on 10-18-2024 Bacteria identified Cx Nom (U)2 DaysLicking Memorial Hospital Urobilinogen Test strip (U) [Mass/Vol]Ordered By: Kassidy Arriaza on 10-18-2024 Urobilinogen (U) [Mass/Vol]Normal mg/dLNormalLicking Memorial HospitalpH of Urine by Test stripOrdered By: Kassidy Arriaza on 93-95-4044yF (U)7.0 [pH] Normal5.0-9.0[facility] HospitalComment on above:Order Comment: Name Collection Type:: Clean-Voided MidstreamPerformed By: #### CAESAR, CUU #### [facility] [address] [place] [address] USAUnlisted Lab Teston 08-38-5678TwcTxpxqo Health SystemBOX TESTon 12-57-7921BGD TEST SENT OUTUNITYNOMO LsjgvehrhkQWL9QKEEXKTJW Healthcare SLS24-93-54VJIT HealthcareUNITY BOX CLINISYUNIVERSITY OF UTAH [facility]OSPITAL HealthcareCoding Summaryon 23-31-6191Cnsowu SummaryHTMLBase 64 WahvpaviANl9vSy+PGhlYWQ+DA7NPTEnT86olWJysJ9zB3NPABnOIiyhLTPZFRfHEiEaylVqLN6qsXWo ZXJu [file] b2x (more content not included)...[facility] HospitalCompliance Drug Analysis, [facility] 40-29-1843Lhikkqf LCFINALInvalid Interpretation [facility] HospitalComment on above:Result Comment: TOXASSURE COMP DRUG ANALYSIS,UR [...] test is not intended to distinguish between pvwgd-8-giquiemycvcummvdzsri, the predominant form of THC in most herbal or marijuana-based products, and lttor-5-ndcnwggsinfbrqejnoca. Lamotrigine PRESENT Acetaminophen PRESENT Test Result Flag Units Ref Range Creatinine 45 mg/dL >=20 Declared Medications: Medication list was not provided. For clinical consultation, please call . ToxAssure, ToxAssure FLEX or MAT drug testin -Technical component - Data analysis performed at [facility], [address] [place] [address]. [phone]. [place] César Bains MD. ToxAssure, ToxAssure FLEX or MAT drug testing: -Technical component - Result certification performed at [facility], [address] [place] [address]. [phone] [place] César Bains MD. Performed At: [employer] [address] [id number] Brendon Galan [facility] Ph:[phone] By: #### [id number] ####[facility] (DEFAULT)[address] [place] [address]11[address]K Urineon 09-28-2024 UrineMixed skin, or urogenital damián. Clinically insignificantNormalEast Ohio Regional HospitalComment on above:Performed By: #### [id number] ####[facility] (DEFAULT)[address] [place] [address]YWpXd Screen LCon 09-27-2024 HBsAg Screen LCNegativeInvalid Interpretation CodeNegativeEast Ohio Regional Hospital Comment on above:Result Comment: Performed At: [place] [id number] [place], [place] [id number] J Luis Gray PhD Ph:[phone] By: #### [id number], 9867562, 1661077, 04346115, 8702927916, 32204400, 9073572893, 35593745####[facility] (DEFAULT)[address] [place] [address] 51912XLE 4th Gen Screen w Reflex LCon 08-24-0958DUM Scr 4th Gen LCNon-ReactiveInvalid Interpretation Code Non ReactiveEast Ohio Regional HospitalComment on above:Result Comment: HIV-1/HIV-2 antibodies and HIV-1 p24 antigen were NOT detected. There is no laboratory evidence of HIV infection. HIV Negative Performed At: [facility] [address] [place], [place] [id number] J Luis Gray PhD Ph:[phone] By: #### [id number] #### [facility] (DEFAULT) [address] [place] [address]DHC, Rfx Qn RPR/Confirm TP LCon 48-70-6674YMB LC Non-ReactiveInvalid Interpretation CodeNon ReactivePike Community Hospital HospitalComment on above:Performed By: #### [id number], 5597270, 6264329, 04920649, 6203999559, 21658952, 7557764274, 24358015####[facility] (DEFAULT)[address] [place] [address]Flfsgjz Antibodies, IgG LCon 73-34-2901Kzinqum Antibodies, IgG LC2.78 indexInvalid Interpretation CodeImmune >0.99[facility] HospitalComment on above:Result Comment: Non-immune <0.90 Equivocal 0.90 - 0.99 Immune >0.99 Performed At: [facility] [address] [place], [place] [id number] J Luis Gray PhD Ph:[phone] By: #### 49559846, 1019334, 4245994, 93007627, 3159325612, 33950975, 9781329895, 42884766####[facility] (DEFAULT)[address] [place] [address].Auto Diff 1on 29-41-2383Iury Jewell %6 %Normal1-12[facility] HospitalComment on above:Performed By: #### 01821218, 0254250, 8784478, 44098375, 4244649743, 26908153, 3165408977, 50792389####[facility] (DEFAULT)[address] [place] [address] Baso Abs#0.0 n13Szruuq8.0-0.2[facility] HospitalComment on above:Performed By: #### 70549674, 7743581, 7173044, 95431371, 9982744221, 64365216, 2182000825, 59638806####[facility] (DEFAULT)[address] [place] [address] Basophils/100 WBC (Bld)0.1 %Low0.2-2.0Maselect [facility] HospitalComment on above: Performed By: #### 88584944, 3179931, 1024086, 67362051, 7099660126, 03700270, 4711173479, 80943148####[facility] (DEFAULT)[address] [place] [address] 88480Nqm Abs#0.2 d37Toilfo5.0-0.4[facility] HospitalComment on above: Performed By: #### 42647433, 4964292, 1124615, 49021998, 2421172300, 11154151, 7790821632, 81974315####[facility] (DEFAULT)[address] [place] [address] 61655Nlkdmlhxxgt/100 WBC (Bld)2.0 %Normal0.9-4.0[facility] Hospital Comment on above:Performed By: #### 01924568, 0617017, 3243776, 31554814, 4258143230, 66477574, 5577126510, 99004922####[facility] (DEFAULT)[address] [place] [address] 77163Gvsrd Abs#2.0 e10Jyeefr1.3-2.9[facility] HospitalComment on above:Performed By: #### 30774903, 8229665, 2400270, 12110037, 7011702394, 14873711, 1186444180, 41353711####[facility] (DEFAULT)[address] [place] [address] 59027Uzferipahsj/100 WBC (Bld)26 % Ubordt10-45Vkjtdadd HospitalComment on above:Performed By: #### 17535604, 7822120, 4851858, 68434002, 1079596352, 68400635, 9913809733, 51096901 ####[facility] (DEFAULT)[address] [place] [address] 00352Tvhw Abs# 0.5 y08Ngrksa0.0-0.8[facility] [place] [facility] HospitalComment on above:Performed By: #### 40903372, 8565736, 7338369, 73161956, 8870667721, 75351847, 0967747695, 52489897 ####[facility] (DEFAULT)[address] [place] [address] 50275Ntte Abs# 5.1 y61Fkhljg9.5-9.2[facility] HospitalComment on above:Performed By: #### 90052915, 4523409, 6508456, 94248935, 2887769177, 93425969, 9902149153, 94425304 ####[facility] (DEFAULT)[address] [place] [address] 07520 Neutrophils/100 WBC (Bld)66 %Qxurhv30-41Wdsbtcmb HospitalComment on above: Performed By: #### 76872825, 4935293, 6843053, 06587685, 1304639268, 87221200, 5366816853, 29061444####[facility] (DEFAULT)[address] [place] [address] 18366DFYLclw 33-85-2333DFD and Rh group Nom (Bld)Hx Check: Not Found Anti-A: 4+ Anti-B: 0 Anti-D: 2+ DCon: NT A1: 0 B: 2+ ABORh Interp: A POSInvalid Interpretation [facility] HospitalComment on above: Performed By: #### 42863669, 9803382, 5286236, 06820380, 8646837019, 36625149, 7387841758, 35223959####[facility] (DEFAULT)[address] [place] [address] 89131TTTA Gelon 11-86-7123RZVO GelNegativeMiddletown Hospital Comment on above:Performed By: #### 91839161, 0615474, 6554097, 00793217, 1791456284, 11586819, 0680475684, 00210470####[facility] (DEFAULT)[address] [place] [address] 79599IKC w/ Auto Diffon 28-62-6744Llhwgbfkxpn distribution width (RBC) [Ratio]13.2 %Hcgwhk20.5-15.0[facility] [place] [facility] HospitalComment on above:Performed By: #### 08518516, 0526711, 2062989, 47307193, 5924724926, 88527398, 1191199724, 46191633#### [facility] (DEFAULT) [address] [place] [address] 44312Hpsfcnqumt (Bld) [Volume fraction]39.9 %Ehnbif75.7-40.4 [facility] HospitalComment on above:Performed By: #### 90661897, 2832204, 6718888, 75780125, 7950913949, 79091344, 5384115952, 35091286#### [facility] (DEFAULT) [address] [place] [address] 98896Ankupjmzuk (Bld) [Mass/Vol]13.9 g/wOXywisu32.3-15.9 [facility] HospitalComment on above:Performed By: #### 66325110, 6695273, 1868930, 42048859, 6220037233, 33598385, 4237282737, 86732148#### [facility] (DEFAULT) [address] [place] [address] 69430Fix Diff?AutoInvalid Interpretation [facility] Comment on above:Performed By: #### 86393917, 6629286, 5953117, 24418274, 5069655066, 14080996, 7310832928, 29498887#### [facility] (DEFAULT) [address] [place] [address] 59317DSJ (RBC) [Entitic mass]29 lnXphtig87-50Unxjbimi Hospital Comment on above:Performed By: #### 95771208, 2337428, 5070636, 50354714, 0199887551, 61921461, 1173368906, 39783551#### [facility] (DEFAULT) [address] [place] [address] 39544AJMU (RBC) [Mass/Vol]35 g/eNPwavps93-14Wrcygtld Hospital Comment on above:Performed By: #### 17735829, 8791890, 9751036, 16091908, 9230357325, 05564573, 5574652755, 05908603#### [facility] (DEFAULT) [address] [place] [address] 33723JXS (RBC) [Entitic vol]84 aWCzzltb37-925Qkyioonq Hospital Comment on above:Performed By: #### 22616149, 9978695, 5684533, 69848957, 9874675739, 56020840, 7709123248, 27955872#### [facility] (DEFAULT) [address] [place] [address] 48015Nlvytskp396 z46Hhgfpu192-611Hnpckahm HospitalComment on above:Performed By: #### 32961081, 6789531, 4703403, 18884879, 7952951957, 18040362, 2989475796, 33161260#### [facility] (DEFAULT) [address] [place] [address] 43586Mutmlxlk mean volume (Bld) [Entitic vol]6.3 fLNormal 6.3-10.2MTrinity Health System East CampusComment on above:Performed By: #### 55451181, 2404642, 2397887, 39538761, 3727517737, 44522761, 7437927308, 12598757#### [facility] (DEFAULT) [address] [place] [address] 87225PJI7.76 k78Ldhgty1.70-5.30[facility] HospitalComment on above:Performed By: #### 21692398, 6712534, 1128409, 74595203, 8287012062, 22081642, 8115305631, 23512037#### [facility] (DEFAULT) [address] [place] [address] 66634HJY4.8 b45Hrryug3.5-10.5[facility] HospitalComment on above: Performed By: #### 26264417, 2189315, 8949768, 61725801, 8490200885, 10628519, 3170977460, 08866076#### [facility] (DEFAULT) [address] [place] [address] 59213KPB surface Ag IA on 21-37-8120Uaymtbhfw B Surface AntigenNegativeMercy HospitalHIV 1+2 Ab+HIV1 p24 Ag IA Qlon 09-26-2024 HIV 1&2 AB/AGNon-ReactiveMercy HospitalHgbA1c Standardon 09-26-2024.Hb 13.1Invalid Interpretation [facility] HospitalComment on above:Performed By: #### 03227494, 9272626, 2443353, 75290953, 2690848797, 32658473, 8698811696, 82480465####[facility] (DEFAULT)[address] [place] [address] 42752 .Hgb A1c0.38 g/dLInvalid Interpretation [facility] HospitalComment on above: Performed By: #### 85004149, 7777518, 9392645, 26465191, 5515681351, 98220295, 2735095077, 41237108####[facility] (DEFAULT)[address] [place] [address] 48943Temninw [Mass/Vol]91 mg/dLInvalid Interpretation [facility] HospitalComment on above:Performed By: #### 00227820, 8292661, 0253664, 28392244, 4803345733, 72121456, 1425063873, 40121199####[facility] (DEFAULT)[address] [place] [address] 49854AaT4n (Bld) [Mass fraction]4.8 % 4.0 - 6.0 %[facility] HospitalComment on above:Performed By: #### 68115864, 6078167, 1812246, 66096837, 5812933095, 01767229, 5451913877, 27671567 ####[facility] (DEFAULT)[address] [place], [place] [address]Rr Panel Informationon 69-07-6630FwoZlgecz [email or web address] SystemProvider Orderson 09-26-2024 Provider [id number]#1.00OTGTIFFMiddletown HospitalRubella IGG immune statuson 61-17-7264Nszfqfg immune IgG2.78ProAdena Regional Medical Center SystemT. pallidum IgG+IgM IA Ql (S)on 59-90-6186WsiaonosDxg-Reactive ProMFederal [facility] SystemType and screenon 10-90-9172Pbd/Rh(D)PositiveProHelen Keller Hospital VitasolUltrasound - Officeon 07-77-3848PbeAyeyng Health SystemHCG ( test) Ql (U)on 68-47-7870Zqklrgxeroimbg and review of laboratory resultsAbnormalNOMS HealthcarePreg Test, UrPositiveNegativeNOMS HealthcareNOMS HealthcareUS OB TRANSVAGINALon 07-57-6834WF OB TRANSVAGINALEXAM: US OB TRANSVAGINAL HISTORY: Dating, [...] II, MD, PHD at 21-Sep-2024 08:26:46 AM [facility]eleradiologyNormalNot AvailableComment on above:Order Comment: US OB TRANSVAGINAL No LMP recorded.Urinalysis macro (dipstick) panel (U)on 99-17-1584Pkgcgbgzk, UA NegativeNegative - 4(70) +++ mg/dLNOMS HealthcareBlood, [...] HealthcareUrobilinogen, UA0.20.2 - 12 mg/dLNOMS HealthcareNOMS HealthcareCNNURSEon 93-07-5302ZVMBOYV Nurse Visit (SHERLEYIAV) JAZ SANDERS ([id number]) 1995 F Date Time Provider Department 09/03/24 10:[address] REJ TORREYV During your visit today, we recorded the following information about you: Manisha Weaver APRN.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 09/03/2024 5:42 PM Signed Jaz Sanders here [...] 2024 5:39 PM Referring Provider: MELODIE HERNANDEZ [[id number]] Allergies As of Date: 09/03/2024 (Not on File) Date Reviewed: 08/20/2024 Reviewed by: Melodie Hernandez APRN.CNP - Fully Assessed Visit Diagnosis:Early stage of (HCC) [Z34.90] Order(s):OBSTETRIC ULTRASOUND [facility] [[id number]] Order #: [id number]. #:[id number]: 1 Prescriptions as of 09/03/2024 - buPROPion [...] (None) Encounter Status:Closed by BRADFORD DOSS on 09/03/24NoCoshocton Regional Medical Centeramination level ultrasoundon 09-03-2024 Indication Viability, Repeat Impression - Single, live, intrauterine . - An intrauterine gestational sac with a yolk sac and pole is present. - [place] rump length measurement is consistent with the [...] Lt ovary: Visualized Performed By: Nina Farnsworth; [facility] Read By: Bradford Doss M.D.MATERNAL MEDICINEHolzer Medical Center – JacksonRadiology Study observation (narrative)[facility] – JacksonCNNURSEon 75-36-5847QBEVZYZTmzpp Visit (REIBD) JAZ SANDERS ([id number]) 1995 F Date Time Provider Department 08/28/24 11:10 AM US TECH 2 [facility] BEAC REIBD During your visit today, we recorded the following information about you: Melodie Hernandez, ELEMENT BURNER.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 08/30/2024 4:36 PM Signed Jaz Sanders is [...] scan next week as scheduled Melodie Hernandez APRN.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 Mikey Torres MD 08/30/2024 4:36 PM Signed Viable ratliff IUP Size equal Date. Plan: patient to follow up with her ob for care. Stacy Banuelos MD Referring Provider: MELODIE HERNANDEZ [[id number]] Allergies As of Date: 08/28/2024 (Not on File) Date Reviewed: 08/20/2024 Reviewed by: Melodie Hernandez APRN.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 - Fully Assessed Visit Diagnosis: resulting from assisted reproductive technology in first trimester ([facility]) [O09.811] Order(s):OBSTETRIC ULTRASOUND [facility] [[id number]] Order #: [id number]. #:[id number]: 1 Prescriptions as of 08/30/2024 - buPROPion [...] (None) Encounter Status:Closed by MIKEY HENLEY on 08/30/24[facility] Hospitalamination level ultrasoundon 08-28-2024 Indication Viability Impression - Single, live, intrauterine . - An intrauterine gestational sac with a yolk sac and embryo is present. - [place] rump length measurement is consistent with the [...] Chavez RDMS Read By: Mikey Torres M.D.MATERNAL MEDICINEHolzer Medical Center – Jackson Radiology Study observation (narrative)[facility] Center – JacksonCNPNon 70-74-7349NLJO Telephone (REIBD) JAZ SANDERS ([id number]) 1995 F Date Time Provider Department 08/24/24 [...] Date Reviewed: 08/20/2024 Reviewed by: Melodie Hernandez, MELY.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 - Fully Assessed Reason for Visit: Patient [...] (None) Encounter Status:Closed by ARMINDA WARD on 08/24/24[facility] Hospitalmanisha 42-91-1839YGHAVmwqyfyqa (REIBD) JAZ SANDERS ([id number]) 1995 F Date Time Provider Department 08/23/24 MELODIE HERNANDEZ During your visit today, we recorded the following information about you: Angella Mccarthy 08/23/2024 10:39 AM Signed Name: Jaz Sanders called today. : 1995 (home) [phone] (cell) Reason for call: pt called today informing the nurse she has been experiencing pain of level 4 from 1-10. Pt has been experiencing pain for 2 day. 5 weeks today. The patients preferred pharmacy has been captured for this encounter? [facility] David, Melodie Keene APRN.CNP 08/24/2024 5:58 PM Signed spoke with [...] slot. Call to patient needed: no [facility], Lana 08/25/2024 8:37 AM Signed Pt is scheduled on 09/03/2024. Melodie Hernandez APRN.CNP 08/27/2024 11:51 AM Signed Addended by: MELODIE HERNANDEZ on: 08/27/2024 11:51 AM Modules accepted: Orders Allergies As of Date: 08/23/2024 (Not on File) Date Reviewed: 08/20/2024 Reviewed by: Melodie Hernandez APRN.CNP - Fully Assessed Reason for Visit: Pain [78] Primary Visit Diagnosis:Early stage of (HCC) [Z34.90] Order(s):OBSTETRIC ULTRASOUND [facility] [[id number]] Order #: [id number]: 1 FUTURE Prescriptions as of 08/27/2024 - [...] (None) Encounter Status:Closed by MELODIE HERNANDEZ on 08/24/24[facility] Summaryon 66-69-9550Njqbxd SummaryMLBase 64 GtxmmfbyDKm0aYa+PGhlYWQ+BL9EURLyU64daEMlhT5rU0MLSAoLAmyhTYQAVJpMNiYxjzVpJO1ptOFy ZXJu [file] b2x (more content not included)...[facility] HospitalCoding Summaryon 34-72-9843Crcnnn SummaryHTMLBase 64 WwirkvojCLs3tZo+PGhlYWQ+FX5DXCDtG79ghPTvrU0jY1YCXCpJDeabZVSTWRqIPfBkozTkCW8pvVAv ZXJu [file] b2x (more content not included)...NormalPike Community Hospital HospitalCoding SummaryMLBase 64 MsdmdwnsGXv0oUj+PGhlYWQ+BA3EHGDrS05dbHHyaZ6tE1XGPDaNCdyzLDDEVPjEQfNenyYpCZ1znWSu ZXJu [file] b2x (more content not included)...[facility] HospitalProvider [place] 91-44-2592Zlttsagk [id number]#1.00OTGTIFF [facility] HospitalhCG Quantitativeon 16-64-7581iYF Ksvfnaixbmqe796.7 mIU/mL High0.0-0.6MTrinity Health System East CampusComment on above:Result Comment: Post-Menopausal Reference Range is: 0.1-11.6 mIU/mLPerformed By: #### [id number] #### [facility] (DEFAULT) [address] [place] [address] [id number] 24-47-2490KHFDWmzoahkon (REIBD) JAZ SANDERS ([id number]) 1995 F Date Time Provider Department 08/16/24 MELODIE HERNANDEZ During your visit today, we recorded the following information about you: Angella Mccarthy 08/16/2024 12:31 PM Signed Name: Jaz Lynda called today. : 1995 (home) [phone] (cell) Reason for call: pt called that she got positive test, she has been having having cramping since last night , it happens every hours for couple minutes. The patients preferred pharmacy has been captured for this encounter? yes [facility] Daniel Hanna APRN.CNP 08/16/2024 5:28 PM Signed Called patient back to phone number listed in [facility]-no answer. Lm for patient to look out for ProtAb message. Daniel Hanna APRN.JARROD August 16, 2024 [...] Text Encounter Status:Closed by DANIEL HANNA on 08/16/24[facility] HospitalSabra 73-80-8933GBYWVqubguqrx (REIBD) JAZ SANDERS ([id number]) 1995 F Date Time Provider Department 08/15/24 MELODIE HERNANDEZ During your visit today, we recorded the following information about you: Manisha Dign 08/15/2024 2:10 PM Signed Pt is preg and wants to know if she can take benadryl due to her having hives Arminda Ward RN 08/23/2024 8:21 AM Signed See 08/20/24 visit with TY Vega RN August 23, 2024 8:21 AM Allergies As of Date: 08/15/2024 (Not on File) Date Reviewed: 05/09/2024 Reviewed by: Melodie Hernandez, ELEMENT BURNER.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 - Fully Assessed Reason for Visit: Patient [...] (None) Encounter Status:Closed by MELODIE HERNANDEZ on 08/15/24[facility] HospitalProvider [place] 94-04-1044Jhvlskco Orders [id number]#1.00OTGTMemorial Health SystemhCG Quantitativeon 63-70-1242gWX Tsngusirljpd980.6 mIU/mLHigh0.0-0.6MTrinity Health System East CampusComment on above:Result Comment: Post-Menopausal Reference Range is: 0.1-11.6 mIU/mLPerformed By: #### [id number] #### [facility] (DEFAULT) [address] [place] [address] [id number] 79-95-8376VMFCVvotxoltv (REIBD) JAZ SANDERS ([id number]) 1995 F Date Time Provider Department 08/13/24 MELODIE HERNANDEZ During your visit today, we recorded the following information about you: Arminda Ward RN 08/13/2024 11:19 AM Signed Letters sent. sent to patient Arminda Ward RN August 13, 2024 11:19 AM Allergies As of Date: 08/13/2024 (Not on File) Date Reviewed: 05/09/2024 Reviewed by: Melodie Hernandez, ELEMENT BURNER.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 - Fully Assessed Reason for Visit: Wants hcg levels sent to [facility] / lives far away [Other] Prescriptions [...] Text Encounter Status:Closed by ARMINDA WARD on 08/13/24[facility] HospitalProvider [place] 46-99-1712Aorlqtyl Orders [id number]#1.00OTTrinity Health System West CampushCG Quantitativeon 98-77-8896xET Zcaowfnmeemb82.6 mIU/mLBoone Memorial Hospital0.0-0.6MTrinity Health System East Campus Comment on above:Result Comment: Post-Menopausal Reference Range is: 0.1-11.6 mIU/mLPerformed By: #### [id number] #### [facility] (DEFAULT) [address] [place] [address] [id number] 99-90-5918TSADMkrzhl Visit (REIBD) JAZ SANDERS ([id number]) 1995 F Date Time Provider Department 07/31/24 3:00 PM MELODIE HERNANDEZ REARLET During your visit today, we recorded the following information about you: Last Period 07/19/24 Mustapha Tello MA 07/31/2024 3:12 PM Addendum Patient verified by full name and date of . Jaz Sanders is here today for an IUI. LMP: 07/19/2024 Natural cycle IUI Timed With: Ovulation Predictor Kit , Date: 07/30/2024 Electroplating Laborer offered: Patient declines Mustapha Tello MA July 31, 2024 3:12 PM Dominguez Barry 09/05/2024 10:45 PM Signed IUI specimen released to provider Dominguez Barry July 31, 2024 3:24 PM Dominguez Barry 09/05/2024 10:45 PM Signed IUI Cryobio Donor # [id number] Pre: frozen washed specimen Post: 82 M/ml, [...] 3. Cycle Day: Last menstrual period: 07/19/2024 [place] Protocol: UNIVERSAL PROTOCOL / SAFETY CHECKLIST Procedure [...] on File) Date Reviewed: 05/09/2024 Reviewed by: Meloide Hernandez APRN.CNP - Fully Assessed Reason for [...] (None) Encounter Status:Closed by MELODIE HERNANDEZ on 09/05/24[facility] HospitalOVOffice Visit (ANDRBE) JAZ SANDERS ([id number]) 1995 F Date Time Provider Department 07/31/24 2:30 PM [facility] During your visit today, we recorded the following information about you: Dominguez Barry 07/31/2024 3:26 PM Signed Thaw for IUI. Dominguez Barry Referring Provider: SELF [[id number]] Allergies As of Date: 07/31/2024 (Not on File) Date Reviewed: 05/09/2024 Reviewed by: Melodie Hernandez, ELEMENT BURNER.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 - Fully Assessed Primary Visit Diagnosis:Procreative management [...] (None) Encounter Status:Closed by DOMINGUEZ BARRY on 07/31/24[facility] HospitalCNPNon 89-58-1165RAQUTonncanlx (REIBD) JAZ SANDERS ([id number]) 1995 F Date Time Provider Department 07/30/24 MELODIE HERNANDEZ During your visit today, we recorded the following information about you: Sathyamanisha Manisha 07/30/2024 3:16 PM Signed N- ivf Pt has questions regarding IUI Melodie Hernandez APRN.CNP 07/30/2024 6:00 PM Signed patient's OPK today was dark but not positive Plan: test again tomorrow. if darker, schedule IUI on Tuesday if supervisor varnish than today, schedule IUI the same day Melodie Hernandez APRN.CNP July 30, 2024 6:00 PM Allergies As of Date: 07/30/2024 (Not on File) Date Reviewed: 05/09/2024 Reviewed by: Meldoie Hernandez APRN.CNP - Fully Assessed Reason for Visit: Patient Question [0047] Prescriptions as of 07/30/2024 - naltrexone 50 [...] (None) Encounter Status:Closed by MELODIE HERNANDEZ on 07/30/24[facility] Centermanisha 41-07-1365DMYEChzvlx Visit (REIBD) JAZ SANDERS ([id number]) 1995 F Date Time Provider Department 07/07/24 [...] Cycle Day: 14 Last menstrual period: 06/24/2024 [place] Protocol: UNIVERSAL PROTOCOL / SAFETY CHECKLIST Procedure [...] Gonzalez 07/19/2024 7:50 AM Signed IUI Cryobio #[id number] Washed frozen specimen Post: 31 m/ml, 77% Insem#: 10.8 million Referring Provider: DANIEL HANNA [[id number]] Allergies As of Date: 07/07/2024 (Not on File) Date Reviewed: 05/09/2024 Reviewed by: Melodie Hernandez APRN.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 - Fully Assessed Primary Visit Diagnosis:Encounter for [...] (None) Encounter Status:Closed by MIKEY HENLEY on 07/19/24[facility] Hospital[facility] (ANDRBE) JAZ SANDERS ([id number]) 1995 F Date Time Provider Department 07/07/24 9:30 AM [facility] During your visit today, we recorded the following information about you: Nichelle Gonzalez 07/07/2024 9:41 AM Signed Thaw for IUI Nichelle Gonzalez Referring Provider: DANIEL HANNA [[id number]] Allergies As of Date: 07/07/2024 (Not on File) Date Reviewed: 05/09/2024 Reviewed by: Melodie Hernandez APRN.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 - Fully Assessed Primary Visit Diagnosis:Procreative management [...] (None) Encounter Status:Closed by NICHELLE GONZALEZ on 07/07/24[facility] HospitalSabra 31-38-0855FAVCOqgoahjpu (REIBD) JAZ SANDERS ([id number]) 1995 F Date Time Provider Department 07/06/24 [...] Date Reviewed: 05/09/2024 Reviewed by: Melodie Hernandez APRN.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 - Fully Assessed Reason for Visit: Patient [...] (None) Encounter Status:Closed by BECKI ISAACS on 07/06/24[facility] HospitalXavier 97-94-6489VCALAasdgqwcl (REIBD) JAZ SANDERS ([id number]) 1995 F Date Time Provider Department 07/05/24 [...] Date Reviewed: 05/09/2024 Reviewed by: Melodie Hernandez APRN.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 - Fully Assessed Reason for Visit: re [...] (None) Encounter Status:Closed by ARMINDA WARD on 07/06/24[facility] 96-01-3953JGACYjclgzuzv (REIBD) JAZ SANDERS ([id number]) 1995 F Date Time Provider Department 07/04/24 [...] Signed Ignacio Guy MD to Jamel Skylar [place] 07/05/24 9:05 AM Cervicalpolyp does not need to be removed. She will [facility] her next IUI. Dr. [...] (None) Encounter Status:Closed by MELODIE HERNANDEZ on 07/04/24[facility] Pelvison 07-04-2024 Indication infertility testing Impression Normal [...] Aceves RDMS Read By: Ignacio Guy M.D.MATERNAL MEDICINEHolzer Medical Center – JacksonRadiology Study observation (narrative)[facility] – JacksonCNPNon 50-34-1885KNUKWmocumuin (REIBD) JAZ SANDERS ([id number]) 1995 F Date Time Provider Department 06/29/24 MELODIE HERNANDEZ During your visit today, we recorded the following information about you: Lupillo Meyerra 06/29/2024 8:53 AM Signed Pt had iui 06/09, pt isnt . Please follow up Cd1 06/23 . Pt had hematoma after iui Patricia Snow 07/02/2024 9:18 AM Signed Pt wants to know if she has to have us before iui this weekend Melodie Hernandez APRN.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 07/03/2024 12:34 PM Signed unable to reach, left message to return my call Melodie Hernandez APRN.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 July 03, 2024 12:33 PM Patricia Snow 08/13/2024 8:52 AM Signed Pos preg test Arminda Ward RN 08/13/2024 9:17 AM Signed See TE encounter dated 08/13 Arminda Ward RN August 13, 2024 9:16 AM Allergies As of Date: 06/29/2024 (Not on File) Date Reviewed: 05/09/2024 Reviewed by: Melodie Hernandez APRN.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 - Fully Assessed Reason for Visit: 06/09 [...] (None) Encounter Status:Closed by ARMINDA WARD on 08/13/24[facility] 82-19-0452XWSTTcgbju Visit (REIBD) JAZ SANDERS ([id number]) 1995 F Date Time Provider Department 06/09/24 11:00 AM IGNACIO GUY During your visit today, we recorded the following information about you: Nichelle Gonzalez 06/09/2024 12:30 PM Signed IUI specimen released to provider Nichelle Gonzalez June 09, 2024 11:24 AM Nichelle Gonzalez 06/09/2024 12:30 PM Signed IUI Cryobio #: [id number] Washed frozen sample Post: 42 m/ml, 74% [...] Cycle Day: 13 Last menstrual period: 05/28/2024 [place] Protocol: UNIVERSAL PROTOCOL / SAFETY CHECKLIST Procedure [...] was discussed with the patient or authorized indirect sales representative. The patient or authorized indirect sales representative has agreed to proceed with the sensitive examination. (Sensitive examination includes inspection and/or palpation of the breasts, pelvis, prostate and anorectal regions) Patient declined pig sticker. Vidhi Sheldon MD IUI IUI Date: 06/09/24 [...] stopped. Will get pelivc scan here at [facility] if not with this IUI prior pt proceeding with another attmept at IUI. Ignacio Guy MD June 09, 2024 12:30 PM SIGNATURE: Vidhi Sheldon MD PATIENT NAME: Jaz Sanders DATE: June 09, 2024 TIME: 12:01 PM Referring Provider: DANIEL HANNA [[id number]] Allergies As of Date: 06/09/2024 (Not on File) Date Reviewed: 05/09/2024 Reviewed by: Melodie Hernandez APRN.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 - Fully Assessed Primary Visit Diagnosis:Female infertility [...] (None) Encounter Status:Closed by IGNACIO GUY on 06/09/24[facility] Visit (ANDRBE) JAZ SANDERS ([id number]) 1995 F Date Time Provider Department 06/09/24 10:30 AM [facility] During your visit today, we recorded the following information about you: Nichelle Gonzalez 06/09/2024 11:48 AM Signed Thaw for IUI Nichelle Gonzalez Referring Provider: DANIEL HANNA [[id number]] Allergies As of Date: 06/09/2024 (Not on File) Date Reviewed: 05/09/2024 Reviewed by: Melodie Hernandez APRN.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 - Fully Assessed Primary Visit Diagnosis:Procreative management [...] (None) Encounter Status:Closed by NICHELLE GONZALEZ on 06/09/24[facility] Summaryon 90-38-0868Axelpi SummarySTEWARD HEALTH CARE SYSTEMBase 64 HrufqdakVVz3fHg+PGhlYWQ+ZA7XHCRzD70jsBRhwW5bC7SVYDnIGdlcQLGTQOjRIkAwykGmKN5yxSUz ZXJu [file] b2x (more content not included)...[facility] HospitalProgesterone LCon 72-12-4822Fmkcohthkcuv LC7.6 ng/mLInvalid Interpretation [facility] Comment on above:Result Comment: Follicular phase 0.1 - 0.9 Luteal phase 1.8 - 23.9 Ovulation phase 0.1 - 12.0 First trimester 11.0 - 44.3 Second trimester 25.4 - 83.3 Third trimester 58.7 - 214.0 Postmenopausal 0.0 - 0.1 Performed At: [facility] [address] [place], [place] [id number] J Luis Gray PhD Ph:[phone] By: #### [id number] ####[facility] (DEFAULT)[address] [place] [address]Gbdoulpj [place] 63-98-2518Scwhndrl [id number]#1.00OTSalem Regional Medical CenterPhysical Therapy Noteon 27-95-9007Qrcigjwr Therapy Note [id number]#1.00OTTrinity Health System West Campus 25([place])D3 [facility] Centeron 327830-qxzkbgxgtwlkql D3 [Mass/Vol]28.8 ng/mLLow 31.0-80.0Av HospitalComment on above:Order Comment: Specimen Type: BLOOD SPECIMEN Ordering Facility: [facility] Address: [address] [place], [place] [address]Result Comment: Classification of 25 [place] Vitamin D status: Deficiency/Insufficiency: < or = 30 ng/ml. Sufficiency/Optimal Levels: 31-80 ng/mL Toxicity: > 100 ng/mL. Test performed by chemiluminescent immunoassay.Performed By: #### 43205-6 #### [facility] CLIA [id number] [address] [place] [address] [place] [facility] COMM[facility] HOSPITALC. trachomatis+N. gonorrhoeae DNA AC+probe Ql (Unsp spec)on 04-02-2024. trachomatis rRNA AC+probe Ql (Unsp spec)Not detectedNormalNot detectedAv HospitalComment on above:Order Comment: Specimen Type: BLOOD SPECIMEN Ordering Facility: [facility] Address: [address] [place], [place] [address]Performed By: #### 29072-2 #### [facility] CLIA [id number] [address] [place] [address] [place]. gonorrhoeae rRNA AC+probe Ql (Unsp spec)Not detectedNormalNot detectedAv HospitalComment on above:Order Comment: Specimen Type: BLOOD SPECIMEN Ordering Facility: [facility] Address: [address] [place], [place] [address]Performed By: #### 47037-1 #### [facility] CLIA [id number] [address] [place] [address] [place] AMERICACARRIER SCREEN, EXPANDEDon 41-94-5020KDFZIDK SCREEN RESULTSView results in Scanned Documents link when available.NormalAv HospitalComment on above:Order Comment: Specimen Type: BLOOD SPECIMEN Ordering Facility: [facility] Address: [address] [place], [place] [address]Performed By: #### 64155-6 #### [facility] CLIA [id number] [address] [place] [address] [place] AMERICACMV IgG Qnon 91-53-9542URI IGG QUALNegativeNormalNegativeAv HospitalComment on above:Order Comment: Specimen Type: BLOOD SPECIMEN Ordering Facility: [facility] Address: [address] [place], [place] [address]Result Comment: No serological evidence of past exposure to Cytomegalovirus. Cannot exclude recent infection if the specimen collected within 4-6 weeks after infection.Performed By: #### 1989-3RIO, 7852-7, 7853-5, VZVG2 #### [facility] CLIA [id number] [address] [place] [address] [place] AMERICACMV IgG SerPl-aCncon 69-79-4729SNQ IgG Qn<0.20NormalAvon HospitalComment on above:Order Comment: Specimen Type: BLOOD SPECIMEN Ordering Facility: [facility] Address: [address] [place], [place] [address]Result Comment: The magnitude of the measured result is not indicative of the amount of antibody present. U/mL values are interpreted as follows: Negative <0.6 Equivocal 0.6 to <0.70 Positive >=0.70Performed By: #### 1989-3RIO, 7852-7, 7853-5, VZVG2 #### [facility] CLIA [id number] [address] [place] [address] [place] AMERICACMV IgM Qnon 69-41-1775GJM IGM, QUALNegativeNormalNegativeAvon HospitalComment on above:Order Comment: Specimen Type: BLOOD SPECIMEN Ordering Facility: [facility] Address: [address] [place], [place] [address]Result Comment: No serological evidence of recent exposure to Cytomegalovirus.Performed By: #### 1989-3, RUBIGG, 7852-7, 7853-5, VZVG2 #### [facility] CLIA [id number] [address] [place] [address] [place] AMERICAHBV core Ab Ser Qlon 04-16-0750QPU core Ab Ql (S)NegativeNormalNegativeAvon HospitalComment on above: Order Comment: Specimen Type: BLOOD SPECIMEN Ordering Facility: [facility] Address: [address] [place], [place] [address]Result Comment: No evidence of current or past infection with Hepatitis B virus. Should recent infection be suspected, repeat testing may be considered 3-4 weeks after this draw.Performed By: #### 48128-4, 5195-3, 00489-6, 87507-1 #### [facility] CLIA [id number] [address] [place] [address] [place] AMERICAHBV surface Ag Ser Qlon 37-28-7673PIA surface Ag Ql (S)NegativeNormalNegativeAvon HospitalComment on above:Order Comment: Specimen Type: BLOOD SPECIMEN Ordering Facility: [facility] Address: [address] [place], [place] [address]Performed By: #### 01280-0, 5195-3, 63117-5, 10321-8 #### [facility] CLIA [id number] [address] [place] [address] [place] AMERICAHCV Ab Ser Qlon 04-02-2024 HCV Ab Ql (S)NegativeNormalNegativeAvon HospitalComment on above:Order Comment: Specimen Type: BLOOD SPECIMEN Ordering Facility: [facility] Address: [address] [place], [place] [id number] Comment: The result suggests no evidence of active infection with Hepatitis C virus. Should recent infection be suspected, repeat testing may be considered 4-6 weeks after this draw. Performed By: #### 90898-8 #### [facility] CLIA [id number] [address] [place] [address] [place] AMERICAHIV 1+2 Ab [place] Qlon 42-68-2952JVX 1 and 2 Ab IA.rapid Nom (S/P/Bld)NormalCentral Valley Medical CenterComment on above:Order Comment: Specimen Type: BLOOD SPECIMEN Ordering Facility: [facility] Address: [address] [place], [place] [address]Result Comment: Test not indicated. Performed By: #### 34533-5, 5195-3, 09349-4, 37711-5 #### [facility] CLIA [id number] [address] [place] [address] STATES OF AMERICAHIV 1+2 Ab+HIV1 p24 Ag IA Ql Non-ReactiveNormalNonreactiveCentral Valley Medical CenterComment on above:Order Comment: Specimen Type: BLOOD SPECIMEN Ordering Facility: [facility] Address: [address] [place], [place] [address]Performed By: #### 63751-9, 5195-3, 37872-2, 60652-2 #### [facility] CLIA [id number] [address] [place] [address] [place] OF AMERICAHIV immunoassay testing algorithm interpretation (S/P/Bld) [Interp][facility] HospitalComment on above: Order Comment: Specimen Type: BLOOD SPECIMEN Ordering Facility: [facility] Address: [address] [place], [place] [address]Result Comment: No evidence of HIV- 1 or HIV-2 infection. Should recent infection be suspected, repeat testing may be considered 2-3 weeks after this draw. [place] Rev. Code 3701.243(E): This information has been [...] HIV test results or diagnoses.Performed By: #### 17520-0, 5195-3, 06545-8, 65276-2 #### [facility] CLIA [id number] [address] [place] [address] [place] JQOFUSSUxQ7g (Bld)on 04-02-2024 Average glucose Estimated from glycated hemoglobin (Bld) [Mass/Vol]85 mg/dL NormalAv HospitalComment on above:Order Comment: Specimen Type: BLOOD SPECIMEN Ordering Facility: [facility] Address: [address] [place], [place] [address]Result Comment: eAG: (Estimated average glucose) is a calculated value from HgbA1c and is indirect sales representative of the average blood glucose level in the last 2-3 month period.Performed By: #### 61010-4 #### [facility] CLIA [id number] [address] [place] [address] [place] YOEILRQYwE5v (Bld) [Mass fraction] 4.6 %Normal4.3-5.6Avon HospitalComment on above:Order Comment: Specimen Type: BLOOD SPECIMEN Ordering Facility: [facility] Address: [address] [place], [place] [address]Result Comment: [place] [employer] guidelines indicate that patients with HgbA1c in the range 5.7-6.4% are at increased risk for development of diabetes, and intervention by lifestyle modification may be beneficial. HgbA1c greater or equal to 6.5% is considered diagnostic of diabetes.Performed By: #### 42662-5 #### [facility] CLIA [id number] [address] [place], [place] [address] [place] AMERICARUBELLA IGG ANTIBODYon 10-31-2894HXENSJU IGG AB, QUALPositiveNormalPositiveAv HospitalComment on above:Order Comment: Specimen Type: BLOOD SPECIMEN Ordering Facility: [facility] Address: [address] [place], [place] [address]Result Comment: The result suggests recent or past exposure to Rubella virus or history of Rubella vaccination. Positive result may also be seen due to presence of passively-transferred antibodies. Please correlate with patient's history.Performed By: #### 1989-3, RUBIGG, 7852-7, 7853-5, VZVG2 #### [facility] CLIA [id number] [address] [place] [address] [place] AMERICAReagin and Treponema pallidum IgG and IgM [Interp]on 04-02-2024T. pallidum IgG+IgM IA Ql (S) Non-ReactiveNormalNonreactiveCentral Valley Medical CenterComment on above:Order Comment: Specimen Type: BLOOD SPECIMEN Ordering Facility: [facility] Address: [address] [place], [place] [address]Performed By: #### 62136-4, 5195-3, 17812-1, 02491-8 #### [facility] CLIA [id number] [address] [place] [address] [place] AMERICAReagin+T pallidum IgG+IgM SerPl-Impon 81-83-5738Ildwzb and Treponema pallidum IgG and IgM [Interp]Cannot exclude recent Treponemal infection if specimen collected within 7-10 days after appearance of suspect lesions or 2-3 weeks after an exposure. Clinical correlation is required.NormalLogan HospitalComment on above:Order Comment: Specimen Type: BLOOD SPECIMEN Ordering Facility: [facility] Address: [address] [place], [place] [address]Performed By: #### 64557-1, 5195-3, 78857-2, 67606-0 #### [facility] CLIA [id number] [address] [place] [address] [place] AMERICATYPE + SCREEN PRENATALon 31-76-7181SCFVXdwiacHith HospitalComment on above:Order Comment: Specimen Type: BLOOD SPECIMEN Ordering Facility: [facility] Address: [address] [place], [place] [address]Performed By: #### TSPN #### [facility] [place] [id number] [address] [place] [address] [facility] CENTERRh Nom (Bld)[facility] Comment on above:Order Comment: Specimen Type: BLOOD SPECIMEN Ordering Facility: [facility] Address: [address] [place], [place] [address]Performed By: #### TSPN #### [facility] [place] [id number] [address] [place] [address] [facility]ITALTYPE AND SCREEN SKKNXNDYAI28/19/2024 23:59[facility]burg ARH HospitalComment on above:Order Comment: Specimen Type: BLOOD SPECIMEN Ordering Facility: [facility] Address: [address] [place], [place] [address]Performed By: #### TSPN #### [facility] [id number] [address] [place] [address] [facility] CENTERVARICELLA ZOSTER IGGon 04-02-2024 VARICELLA ZOSTER IGG, QUALPositiveNormalPositiveLogan HospitalComment on above: Order Comment: Specimen Type: BLOOD SPECIMEN Ordering Facility: [facility] Address: [address] [place], [place] [address]Result Comment: The result suggests recent or past exposure to Varicella-Zoster virus or chickenpoxvaccination or zoster vaccination. Positive result may also be seen due to presence of passively-transferred antibodies. Please correlate with patient's history. Performed By: #### 55230-3 #### [facility] CLIA [id number] [address] [place] [address] STATES OF AMERICACoding Summaryon 03-20-2024 Coding SummaryMLBase 64 BsmtqtuwZGa1nSa+PGhlYWQ+IP1WXMEuT98vcOUkvF3eZ5ZHKSxQKbumXIKUVHnGZcKfqqRyYF9kiCLt ZXJu [file] JSc (more content not included)...[facility] HospitalProvider Orderson 23-12-5383Sveqlypz [id number]#1.00OTGTIFF [facility].Auto Diff 1on 71-73-3421Hhtp [place] %3 %Normal1-12Magrchillicothe va medical center HospitalComment on above:Performed By: #### 21361138, 9857591, 5657515 #### [facility] (DEFAULT) [address] [place] [address] 34699Xlah Abs#0.0 u49Nsbpbs5.0-0.2[facility] HospitalComment on above:Performed By: #### [id number], 4950906, 9168527 #### [facility] (DEFAULT) [address] [place] [address] 51199Blercbbzi/100 WBC (Bld)0.3 %Normal0.2-2.0[facility] Comment on above:Performed By: #### 78961065, 0651345, 4972029 #### [facility] (DEFAULT) [address] [place] [address] 27272Xae Abs#0.0 l85Kxjxei7.0-0.4[facility] HospitalComment on above:Performed By: #### 64441819, 6137225, 1224777 #### [facility] (DEFAULT) [address] [place] [address] 73454Mvuvwcnbljs/100 WBC (Bld)0.1 %Low0.9-4.0[facility] Hospital Comment on above:Performed By: #### 20700082, 7188941, 0668847 #### [facility] (DEFAULT) [address] [place] [address] 42070Rbvxh Abs#1.5 p34Zofpcx6.3-2.9[facility] HospitalComment on above:Performed By: #### 11396506, 3653861, 9120837 #### [facility] (DEFAULT) [address] [place] [address] 00427Kgnsuveeesx/100 WBC (Bld)16 %Qdnibe02-10Irotqyxu Hospital Comment on above:Performed By: #### 01253007, 1896902, 0786627 #### [facility] (DEFAULT) [address] [place] [address] 98712Wpth Abs#0.3 b17Kmgrld2.0-0.8[facility] HospitalComment on above:Performed By: #### [id number], 8158627, 3970143 #### [facility] (DEFAULT) [address] [place] [address] 28647Qsvl Abs#7.8 q18Yjahhj5.5-9.2[facility] HospitalComment on above:Performed By: #### 49453687, 3645498, 7906777 #### [facility] (DEFAULT) [address] [place] [address] 98730Ffhblsfdiqa/100 WBC (Bld)81 %Gzrcfy31-22Mjujiive Hospital Comment on above:Performed By: #### 65982642, 5626201, 5821797 #### [facility] (DEFAULT) [address] [place] [address] 63220XUT w/ Auto Diffon 64-29-4899Baxymecajew distribution width (RBC) [Ratio]13.9 %Yqasdy23.5-15.0[facility] HospitalComment on above: Performed By: #### 67845677, 2586428, 1749349 #### [facility] (DEFAULT) [address] [place] [address] 84268Nalhencxpi (Bld) [Volume fraction]45.3 %High33.7-40.4 [facility] HospitalComment on above:Performed By: #### 52309299, 6522446, 9351551 #### [facility] (DEFAULT) [address] [place] [address] 38925Nrhhnzsucp (Bld) [Mass/Vol]15.5 g/aWSibhwj33.3-15.9 [facility] HospitalComment on above:Performed By: #### 88910916, 3430276, 0976793 #### [facility] (DEFAULT) [address] [place] [address] 87314Gwq Diff?AutoInvalid Interpretation CodeEast [facility] Regional Hospital Comment on above:Performed By: #### [id number], 3087968, 4190795 #### [facility] (DEFAULT) [address] [place] [address] 27072INY (RBC) [Entitic mass]29 rfGydrdq55-11Iabpdrzt Hospital Comment on above:Performed By: #### 99508755, 8509160, 7692341 #### [facility] (DEFAULT) [address] [place] [address] 32880QUXV (RBC) [Mass/Vol]34 g/rUHzxxzm32-06Wfuqygng Hospital Comment on above:Performed By: #### 34271051, 5600191, 8863576 #### [facility] (DEFAULT) [address] [place] [address] 16063EHC (RBC) [Entitic vol]86 iJWcdwuu28-222Hwhrjnej Hospital Comment on above:Performed By: #### 30932049, 4176847, 3136530 #### [facility] (DEFAULT) [address] [place] [address] 64364Iuogkgeg411 o40Musmqt007-005Rdlizycr HospitalComment on above:Performed By: #### 87246292, 9799116, 2383206 #### [facility] (DEFAULT) [address] [place] [address] 14166Zxurndvx mean volume (Bld) [Entitic vol]6.8 fLNormal 6.3-10.2[facility] HospitalComment on above:Performed By: #### 97935978, 1114001, 7192324 #### [facility] (DEFAULT) [address] [place] [address] 02185DHI8.28 c18Zcgevp5.70-5.30[facility] HospitalComment on above:Performed By: #### 80988337, 2945361, 9259023 #### [facility] (DEFAULT) [address] [place] [address] 00034OOM3.6 l88Bksaca4.5-10.5[facility] HospitalComment on above: Performed By: #### 49119042, 3519725, 1560300 #### [facility] (DEFAULT) [address] [place] [address] 56225Lkkekcrbbi 47-44-4756Kjqqevda [Mass/Vol]20.6 ng/mLNormal 12.0-150.0[facility] HospitalComment on above:Performed By: #### 33501316, 4005513, 5783468 #### [facility] (DEFAULT[facility] [address] [place] [address] 95658Xfxz Levelon 91-01-1487Jkcq [Mass/Vol]61.0 ug/dLNormal 28.0-170.0[facility] HospitalComment on above:Performed By: #### [id number] ####[facility] (DEFAULT)[address] [place] [address] [id number] ID: [id number] Author: IGNACIO GUY MD Service: ? Author [...] for three cycles. They will meet with IRRIGATION FLUME LAYER to review the IUI checklist and sign consents. I spent a total of 45 minutes on the date of the service which included preparing to see the patient, ghjd-pp-assf patient care, completing clinical documentation, counseling and educating the patient/family/caregiver, and ordering medications, tests, or procedures. 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 They will meet with IRRIGATION FLUME LAYER to review the IUI checklist and sign consents. I spent a total of 45 minutes on the date of the service which included preparing to see the patient, dgad-gx-wlwd patient care, com (more content not included)...NormalWyandot Memorial HospitalP,APTIMA HPV,AGE GDLNon 02-28-2024 AGE GDLN ACOG TESTINGNote.NOMS HealthcareComment on above:TESTS RESULT FLAG UNITS REF RANGE LAB Clinician Provided Cytology Information Source.............Cervix;Endocervix No. of containers..01 ThinPrep Vial Age Algo ACOG Ezequiel... 01 FLAG LEGEND: L-Low Normal,H-High Normal,LL-Alert Low,HH-Alert High <-Panic Low,>-Panic High,A-Abnormal,AA-Critical Abnormal Performed at: 01 =G [facility] [place] [address] Dagmar Love MD, IGP, RFX APTIMA HPV ASCUNote.NOMS HealthcareComment on above:TESTS RESULT FLAG UNITS REF RANGE LAB DIAGNOSIS: 02 NEGATIVE FOR INTRAEPITHELIAL LESION OR MALIGNANCY. Specimen adequacy: 02 Satisfactory for evaluation. Endocervical and/or squamous metaplastic cells (endocervical component) are present. Performed by: 02 Edel Sewell, Show Horse Driver ([facility]) . 02 Note: Note 02 The Pap [...] High,A-Abnormal,AA-Critical Abnormal Performed at: 02 [facility] [address] [place] [address] Dagmar Love MD, Performed at: =G - [facility] [address], [place] [id number] [place]: Dagmar Love MD, Phone: [phone] Performed at: - [address] [id number] [place]: Dagmar Love MD, Phone: [phone] BRUSH-SPATULA CERVIX ENDOCERVIX [facility]burgCose[facility] [place] Summaryon 44-14-2986Gjaizm SummaryMLBase 64 NptuzmyqEZe5iHc+PGhlYWQ+PB1CKHEzK80dqDOhlA3pC9KPWHmTYrpyASQFMUeQJlXzprChWA8mmFQi ZXJu [file] [facility] (more content not included)...[facility] papilloma virus 16+18+31+33+35+39+45+51+52+56+58+59+66+68 DNA [Presence] in Addi 97-63-1351NYG 16+18+31+33+35+39+45+51+52+56+58+59+66+68 DNA Probe+sig amp Ql (Cvx)Human papilloma virus 16+18+31+33+35+39+45+51+52+56+58+59+66+68 DNA [Presence] in Cer. [facility] HospitalComment on above:TESTS RESULT FLAG UNITS REF RANGE LAB DIAGNOSIS: 02 NEGATIVE FOR INTRAEPITHELIAL LESION OR MALIGNANCY.Specimen adequacy: 02 Satisfactory forevaluation. Endocervical and/or squamous metaplastic cells (endocervical component) are present.Performed by: 02 Edel Sewell, Show Horse Driver ([facility]). 02Note: Note 02 The Pap smear is [...] <-Panic Low,>- Panic High,A-Abnormal,AA-Critical Abnormal Performed at:[address] [address] Dagmar Love MD, Sccmhorbw at: = - [facility] [id number] Director: Dagmar Love MD, Phone: [phone] at: [facility] [id number] Director: Dagmar Love MD, Phone: [phone] Panel Informationon 18-26-2682Jcaugxkau Lab Test Patient AgeNotcolt.[facility] HospitalComment on above:TESTS RESULT FLAG UNITS REF RANGE LAB Clinician Provided Cytology Information Source.............Cervix;Endocervix No. of containers..01 ThinPrep VialAge Olafo HUMAOG Ezequiel... FLAG LEGEND: L-Low Normal,H-High Normal,LL-Alert Low,HH-Alert High <-Panic Low,>-Panic High,A- Abnormal,AA-Critical Abnormal Performed a t:01 =G [address] [address] Dagmar Love MD, .Auto Diff 1on 91-35-7956Chpc [place] %6 %Normal1-12 [facility] HospitalComment on above:Performed By: #### [id number] #### [facility] (DEFAULT) [address] [place] [address] 27507Ftso Abs#0.0 l18Sodaat9.0-0.2Magrchillicothe va medical center HospitalComment on above:Performed By: #### [id number] #### [facility] (DEFAULT) [address] [place] [address] 65944Utwialxci/100 WBC (Bld)0.3 %Normal0.2-2.0[facility] Hospital Comment on above:Performed By: #### [id number] #### [facility] (DEFAULT) [address] [place] [address] 31557Kfk Abs#0.2 c76Nzisyb5.0-0.4[facility] HospitalComment on above:Performed By: #### [id number] #### [facility] (DEFAULT) [address] [place] [address] 14871Ruggughqgnq/100 WBC (Bld)3.4 %Normal0.9-4.0[facility] HospitalComment on above:Performed By: #### [id number] #### [facility] (DEFAULT) [address] [place] [address] 62893Gultm Abs#2.4 s55Kihdpi9.3-2.9[facility] HospitalComment on above:Performed By: #### [id number] #### [facility] (DEFAULT) [address] [place] [address] 92472Vharwftjzcc/100 WBC (Bld)34 %Ahcdik16-27Kmucgjgk Hospital Comment on above:Performed By: #### [id number] #### [facility] (DEFAULT) [address] [place] [address] 86665Jhif Abs#0.4 h57Tyujja8.0-0.8[facility] HospitalComment on above:Performed By: #### [id number] #### [facility] (DEFAULT) [address] [place] [address] 53879Cszg Abs#4.0 n16Bgtaeh8.5-9.2[facility] HospitalComment on above:Performed By: #### [id number] #### [facility] (DEFAULT) [address] [place] [address] 97584Enbntlrbjek/100 WBC (Bld)56 %Ddqjyq61-55Kzzagiaz Hospital Comment on above:Performed By: #### 8582498 #### [facility] (DEFAULT) [address] [place] [address] 47142AOF w/ Auto Diffon 52-84-0924Qkwmnepbtcg distribution width (RBC) [Ratio]14.0 %Bgeqhn95.5-15.0[facility] HospitalComment on above: Performed By: #### [id number] #### [facility] (DEFAULT) [address] [place] [address] 25158Xpgpozubnw (Bld) [Volume fraction]41.7 %High33.7-40.4 [facility] HospitalComment on above:Performed By: #### [id number] #### [facility] (DEFAULT) [address] [place] [address] 04797Gbjeznllov (Bld) [Mass/Vol]14.1 g/iPFvcitx27.3-15.9 [facility] HospitalComment on above:Performed By: #### [id number] #### [facility] (DEFAULT) [address] [place] [address] 76397Jhh Diff?AutoInvalid Interpretation CodeEast [facility] Hospital Comment on above:Performed By: #### [id number] #### [facility] (DEFAULT) [address] [place] [address] 33953YYE (RBC) [Entitic mass]29 hpJdrmbv44-22Bbghbwcd Hospital Comment on above:Performed By: #### [id number] #### [facility] (DEFAULT) [address] [place] [address] 41539IHQK (RBC) [Mass/Vol]34 g/gRNjsxgf55-69Nvviukqo Hospital Comment on above:Performed By: #### [id number] #### [facility] (DEFAULT) [address] [place] [address] 51391SYH (RBC) [Entitic vol]86 aEEnkule51-935Ovrdoemf Hospital Comment on above:Performed By: #### [id number] #### [facility] (DEFAULT) [address] [place] [address] 99466Jrzvhwop034 p80Fytowr328-666Lznjvybr HospitalComment on above:Performed By: #### [id number] #### [facility] (DEFAULT) [address] [place] [address] 66352Qernnrmm mean volume (Bld) [Entitic vol]6.8 fLNormal 6.3-10.2[facility] HospitalComment on above:Performed By: #### [id number] #### [facility] (DEFAULT) [address] [place] [address] 64838NYO8.84 n97Kaftfu8.70-5.30[facility] HospitalComment on above:Performed By: #### [id number] #### [facility] (DEFAULT) [address] [place] [address] 27433UIN4.1 z10Mrfrjk9.5-10.5[facility] HospitalComment on above: Performed By: #### [id number] #### [facility] (DEFAULT) [address] [place] [address] 68834Ozhwkwrgjg 18-89-3909Nyllwyia [Mass/Vol]15.8 ng/mLNormal 12.0-150.0[facility] HospitalComment on above:Performed By: #### [id number], 0604145, 6533966 #### [facility] (DEFAULT) [address] [place] [address] 61931Qkjo Profileon 52-59-7891Lonm [Mass/Vol]72.0 ug/dLNormal 28.0-170.0[facility] HospitalComment on above:Performed By: #### [id number], 2812772, 5716530 #### [facility] (DEFAULT) [address] [place] [address] 52320Covu Sat19 %Fwj57-84Urlhqwwj HospitalComment on above: Performed By: #### [id number], 2786439, 1079351 #### [facility] (DEFAULT) [address] [place] [address] 49675VAGF001 mcg/zZClophh921-292Jlbbuvwn HospitalComment on above:Performed By: #### 62484034, 9447905, 8356208 #### [facility] (DEFAULT) [address] [place] [address] 38494Cnrkqwffgmu [Mass/Vol]274.6 mg/rIHwbagh638.0-382.0[facility] HospitalComment on above:Performed By: #### [id number], 1194866, 5113414 #### [facility] (DEFAULT) [address] [place] [address] 84015Gtixcu Summaryon 91-92-4151Akrnzt SummaryMLBase 64 IemasryyDWz6zKb+PGhlYWQ+NT4JISDtE38qxIWhoW1hG2IZDYlPEwxhPFZHYCnGWeBfcsUkES1yvDNc ZXJu [file] c (more content not included)...[facility] HospitalAmphetamine Screen Ql (U)Ordered By: Andry Lacy on 52-92-4401Vhvpoedxdnqw Ql (U)Amphetamines screenNegativeMercy Health Fairfield Hospital CenterAmphetamines Ql (U)Negative NegativeLicking Memorial HospitalBarbiturates [Presence] in Urine by Screen methodOrdered By: Andry Lacy on 43-11-0642Iadetsfbqesf Screen Ql (U) NegativeNegativeLicking Memorial HospitalBarbiturates Screen Ql (U) Barbiturates [Presence] in Urine by Screen methodNegGreene Memorial HospitalBenzodiazepines Screen Ql (U)Ordered By: Andry Lacy on [id number] Ql (U)PositiveHighNegGreene Memorial HospitalBenzodiazepines Ql (U)Benzodiazepines [Presence] in Urine by Screen method HighNegGreene Memorial HospitalBenzoylecgonine [Presence] in Urine by Screen methodOrdered By: Andry Lacy on [id number] Screen Ql (U)NegativeNegGreene Memorial HospitalBenzoylecgonine Screen Ql (U)Benzoylecgonine [Presence] in Urine by Screen methodNegGreene Memorial HospitalCannabinoids [Presence] in Urine by Screen methodOrdered By: Andry Lacy on [id number] Screen Ql (U)PositiveHighBucyrus Community HospitalComment on above:These are unconfirmed results and should not be used for legal purposes. Drug Cut-Off Concentration: AMPH 1000 ng/mL LUIS ANTONIO 200 ng/mL JOHN 200 ng/mL COCM 300 ng/mL OP 300 ng/mL PCP 25 ng/mL THC 20 ng/mLCannabinoids Screen Ql (U)Cannabinoids [Presence] in Urine by Screen methodHighNegGreene Memorial HospitalComment on above:These are unconfirmed results and should not be used for legal purposes. Drug Cut-Off Concentration: AMPH 1000 ng/mL LUIS ANTONIO 200 ng/mL JOHN 200 ng/mL COCM 300 ng/mL OP 300 ng/mL PCP 25 ng/mL THC 20 ng/mLHCG ( test) IA.rapid Ql (U)Ordered By: Andry Lacy on [id number] ( test) Ql (U)NegativeLicking Memorial HospitalHCG ( test) Ql (U)Urine human chorionic gonadotropin (hCG) detection by immunoassayLicking Memorial Hospital Opiates [Presence] in Urine by Screen methodOrdered By: Andry Lacy on [id number] Screen Ql (U)NegativeNegativeLicking Memorial Hospital Opiates Screen Ql (U)Opiates [Presence] in Urine by Screen methodNegative [facility] HospitalPhencyclidine Screen Ql (U)Ordered By: Andry Lacy on [id number] Ql (U)NegativeNegativeLicking Memorial HospitalPhencyclidine Ql (U)Phencyclidine [Presence] in Urine by Screen methodNegativeLicking Memorial HospitalAlanine aminotransferase [Enzymatic activity/volume] in Serum or PlasmaOrdered By: Romeo Santana on 31-26-6019MME [Catalytic activity/Vol]14 U/L7-52L[facility] HospitalAlbumin [Mass/volume] in Serum or Plasma by Bromocresol green (BCG) dye binding methoOrdered By: Romeo Santana on 33-88-7385Cbaewrd BCG dye [Mass/Vol]4.6 g/dL3.5-5.7FGalion HospitalAlkaline phosphatase [Enzymatic activity/volume] in Serum or PlasmaOrdered By: Romeo Santana on 09-98-9378DNL [Catalytic activity/Vol]41 U/D82-948UasgrnddrLicking Memorial HospitalAspartate aminotransferase [Enzymatic activity/volume] in Serum or PlasmaOrdered By: Romeo Santana on 98-08-4603KCR [Catalytic activity/Vol]13 U/W77-18EwitxezfuLicking Memorial HospitalBasophils Auto (Bld) [#/Vol]Ordered By: Romeo Santana on 11-28-2023 Basophils (Bld) [#/Vol]0.0 10*3/uL0.0-0.2FGalion Hospital Basophils/100 WBC Auto (Bld)Ordered By: Romeo Santana on 16-16-2429Kblnbapch/100 WBC (Bld)0.3 %.[facility] HospitalBilirubin.total [Mass/volume] in Serum or PlasmaOrdered By: Romeo Santana on 51-84-7977Mcbhespcw [Mass/Vol]0.5 mg/dL0.3-1.0[facility] HospitalCalcium [Mass/volume] in Serum or PlasmaOrdered By: Romeo Santana on 06-76-4591Cnsiubn [Mass/Vol]9.4 mg/dL8.6-10.3 [facility] HospitalCarbon dioxide, total [Moles/volume] in Serum or PlasmaOrdered By: Romeo Santana on 25-73-8052UD6 [Moles/Vol]27.8 mmol/L 21.0-31.0[facility] HospitalChloride [Moles/volume] in Serum or PlasmaOrdered By: Romeo Santana on 86-63-4321Yalhvmxv [Moles/Vol]106 mmol/L98-107 [facility] HospitalCreatinine [Mass/volume] in Serum or Plasma Ordered By: Romeo Santana on 05-15-8346Sqpfmpebur [Mass/Vol]0.62 mg/dL0.60-1.20 [facility] HospitalEosinophils Auto (Bld) [#/Vol]Ordered By: Romeo Santana on 22-29-0704Rkpgfrkvnrk (Bld) [#/Vol]0.2 10*3/uL0.0-0.45L[facility] HospitalEosinophils/100 WBC Auto (Bld)Ordered By: Romeo Santana on 38-38-3340Xyknaugfxhq/100 WBC (Bld)3.5 %.[facility] Erythrocyte distribution width Auto (RBC) [Ratio]Ordered By: Rmoeo Santana on 30-35-9287Vhwkqiztufp distribution width (RBC) [Ratio]14.0 %11.9-15.3FGalion HospitalGlobulin Calc (S) [Mass/Vol]Ordered By: Romeo Santana on 13-75-8180Unsnsdmo (S) [Mass/Vol]2.0 g/dLLicking Memorial Hospital Glucose [Mass/volume] in Serum or PlasmaOrdered By: Romeo Santana on 11-28-2023 Glucose [Mass/Vol]76 mg/nX28-751JuyjfhkjsLicking Memorial HospitalHematocrit Auto (Bld) [Volume fraction]Ordered By: Romeo Santana on 06-98-7664Nmbjgkzifk (Bld) [Volume fraction]40.1 %34.0-46.4FGalion HospitalHemoglobin [Mass/volume] in BloodOrdered By: Romeo Santana on 66-21-5336Tisnlxecos (Bld) [Mass/Vol]13.6 g/dL11.8-15.4FGalion HospitalLeukocytes [#/volume] corrected for nucleated erythrocytes in Blood by Automated coun Ordered By: Romeo Santana on 29-31-6167AAZ corrected for nucl RBC Auto (Bld) [#/Vol]6.4 10*3/uL3.8-11.6FGalion HospitalLymphocytes Auto (Bld) [#/Vol]Ordered By: Romeo Santana on 98-94-1896Pfrdjudnigr (Bld) [#/Vol]2.4 10*3/uL1.00-4.8L[facility] HospitalLymphocytes/100 WBC Auto (Bld) Ordered By: Romeo Santana on 15-07-8226Vknjntusjhy/100 WBC (Bld)38.3 %.[facility] HospitalMCH Auto (RBC) [Entitic mass]Ordered By: Romeo Santana on 35-51-1010RCL (RBC) [Entitic mass]29.3 pg24.7-34.3FGalion HospitalMCHC Auto (RBC) [Mass/Vol]Ordered By: Romeo Santana on 27-93-1070SZDQ (RBC) [Mass/Vol]33.8 g/dL32.0-35.0L[facility] HospitalMCV Auto (RBC) [Entitic vol]Ordered By: Romeo Santana on 63-07-3525PRQ (RBC) [Entitic vol]86.7 sZ78-005IemkjpwhpLicking Memorial HospitalMonocytes Auto (Bld) [#/Vol]Ordered By: Romeo Santana on 06-67-5978Ucvezajre (Bld) [#/Vol]0.4 10*3/uL0.0-0.8L[facility] HospitalMonocytes/100 WBC Auto (Bld)Ordered By: Romeo Santana on 73-79-1721Txsdhatri/100 WBC (Bld)5.8 %.[facility] Neutrophils Auto (Bld) [#/Vol]Ordered By: Romeo Santana on 67-96-1922Jdfyvzslrdt (Bld) [#/Vol]3.3 10*3/uL1.8-7.7FGalion HospitalNeutrophils/100 WBC Auto (Bld)Ordered By: Romeo Santana on 20-68-5105Kcwpdxiyttl/100 WBC (Bld) 52.1 %.[facility] HospitalNo Panel InformationOrdered By: Romeo Santana on 26-56-1958Idcuiazvl GFR (CKD-EPI)> 60.0 mL/MinLicking Memorial HospitalPharmacy Creatinine Clearance (ChemN/AFGalion HospitalNucleated erythrocytes [Presence] in Blood by Automated countOrdered By: Romeo Santana on 33-90-8615Vlzzuggsc RBC Auto Ql (Bld)0.0 /100{WBC}0-0.5FGalion HospitalPlatelet mean volume Auto (Bld) [Entitic vol]Ordered By: Romeo Santana on 09-90-1992Rfezhxce mean volume (Bld) [Entitic vol]6.8 fL6.3-10.7 [facility] HospitalPlatelets Auto (Bld) [#/Vol]Ordered By: Romeo Santana on 25-66-3868Eounwjwwq (Bld) [#/Vol]159 10*3/gJ851-393MhfdghaxoLicking Memorial HospitalPotassium [Moles/volume] in Serum or PlasmaOrdered By: Romeo Santana on 67-02-1744Yxohuxetz [Moles/Vol]4.2 mmol/L3.5-5.1FGalion HospitalProtein [Mass/volume] in Serum or PlasmaOrdered By: Romeo Santana on 47-33-4016Wqetfjz [Mass/Vol]6.6 g/dL6.4-8.9[facility] RBC Auto (Bld) [#/Vol]Ordered By: Romeo Santana on 73-72-2954LUN (Bld) [#/Vol] 4.63 10*6/uL3.60-5.00Protestant Hospitalerum or plasma albumin/globulin mass ratioOrdered By: Romeo Santana on 11-28-2023 Albumin/Globulin [Mass ratio]2.3 {ratio}Protestant Hospitalerum or plasma anion gap determinationOrdered By: Romeo Santana on 03-28-4170Xecdh gap [Moles/Vol]10.4 mmol/L6.0-15.0Protestant Hospitalodium [Moles/volume] in Serum or PlasmaOrdered By: Romeo Santana on 76-39-3244Gdasfz [Moles/Vol]140 mmol/T837-315IxpjsdrydLicking Memorial HospitalUrea nitrogen [Mass/volume] in Serum or PlasmaOrdered By: Romeo Santana on 85-69-6995Ftbs nitrogen [Mass/Vol]7 mg/dL7-25L[facility] HospitalWBC Auto (Bld) [#/Vol]Ordered By: Romeo Santana on 27-95-9896IUD (Bld) [#/Vol]6.4 10*3/uL 3.8-11.6FGalion HospitalCoding Summaryon 87-38-5759Nyigwt SummaryHTMLBase 64 TzjlzmytMIt1aIr+PGhlYWQ+YE5YWKVpM48bpYPkoI3dN2UHPMmVSahkFLWFQQqOJgRbjxZuFG7kkJTt ZXJu [file] b3J (more content not included)...NormalMagruder HospitalCoding SummaryHTMLBase 64 LfgvepnxIKx7iIc+PGhlYWQ+NQ4QRDIyO35jeQHwjY1lW4UFGJuAJafoECAZYSeODaIlepSpAO5liZVd ZXJu [file] b3J (more content not included)...[facility] HospitalProvider Orderson 33-67-9827Xzxmnika [id number]#1.00OTGTIFF [facility] HospitalChlamydia/GC Amplification LCon 58-92-2716Sazbgzfyx trachomatis, AC LCNegativeInvalid Interpretation CodeNegMercy Health Clermont Hospital Comment on above:Performed By: #### [id number] #### [facility] (DEFAULT) [address] [place] [address] 81332Xzqmmjhsx gonorrhoeae, AC LCNegativeInvalid Interpretation CodeNegMercy Health Clermont HospitalComment on above:Result Comment: Performed At: =[facility] [id number] Ivan Calvin MD Ph:[phone] By: #### [id number] #### [facility] (DEFAULT) [address] [place] [address] 88786Vnfmuas Formson 01-35-7769Ukwcqsy Forms [id number]#1.00OTGTIFFMiddletown HospitalED Note-Nursingon 36-69-6655CV Note-NursingFluconazole 150mg tab called into [facility] Patient contacted and notified of the results of her culture and the prescription that was sent forher. Instructions on how to take the medication was given, patient verbalized understanding [facility].Auto Diff 1on 75-22-2499Jyux Jewell %9 %Normal1-12[facility] Comment on above:Performed By: #### [id number], [id number], [id number] #### [facility] (DEFAULT) [address] [place] [address] 62219Cjye Abs#0.0 g64Hoddao5.0-0.2[facility] HospitalComment on above:Performed By: #### [id number], [id number], [id number] #### [facility] (DEFAULT) [address] [place] [address] 31649Kentituun/100 WBC (Bld)0.2 %Normal0.2-2.0[facility] Comment on above:Performed By: #### [id number], [id number], [id number] #### [facility] (DEFAULT) [address] [place] [address] 04023Lra Abs#0.3 g36Swyxtd8.0-0.4[facility] HospitalComment on above:Performed By: #### [id number], [id number], 9161412 #### [facility] (DEFAULT) [address] [place] [address] 85148Bddnovmzsen/100 WBC (Bld)9.0 %High0.9-4.0[facility] Comment on above:Performed By: #### [id number], [id number], [id number] #### [facility] (DEFAULT) [address] [place] [address] 61433Sedmu Abs#0.4 q79Cmy9.3-2.9[facility] HospitalComment on above:Performed By: #### [id number], 7157628, 3437562 #### [facility] (DEFAULT) [address] [place] [address] 68911Emeycrfquxh/100 WBC (Bld)12 %Ama83-11GbfmwfnoEast [facility] Regional Hospital Comment on above:Performed By: #### [id number], 7018365, 3215403 #### [facility] (DEFAULT) [address] [place] [address] 39623Kgvs Abs#0.3 e82Iqsluy3.0-0.8[facility] HospitalComment on above:Performed By: #### [id number], 0463968, [id number] #### [facility] (DEFAULT) [address] [place] [address] 78534Uyai Abs#2.4 e76Aamdjn6.5-9.2[facility] HospitalComment on above:Performed By: #### [id number], 6740604, 4059566 #### [facility] (DEFAULT) [address] [place] [address] 05978Giiihiyckmh/100 WBC (Bld)70 %Jruimg68-50Jvtripkt Hospital Comment on above:Performed By: #### [id number], [id number], 1628160 #### [facility] (DEFAULT) [address] [place] [address] 87824Q Genitalon 11-02-2023 GenitalHeavy growth of Yeast No CARLOS performed on this organism No growth of GC at 3 days. 4+ Gram Positive Rods Few Yeast No WBC's seen. Gram Negative Diplococci not seen.[place] HospitalComment on above: Performed By: #### [id number] #### [facility] (DEFAULT) [address] [place] [address] 86365XBI w/ Auto Diffon 97-81-4396Cmjmtirpawc distribution width (RBC) [Ratio]13.7 %Bpkdan24.5-15.0[facility] HospitalComment on above: Performed By: #### [id number], [id number], 1392626 #### [facility] (DEFAULT) [address] [place], [place] [address]Hematocrit (Bld) [Volume fraction]40.5 %High33.7-40.4 [facility] HospitalComment on above:Performed By: #### [id number], 5758561, 9160082 #### [facility] (DEFAULT) [address] [place], [place] [address]Hemoglobin (Bld) [Mass/Vol]13.7 g/lVXkkhtp87.3-15.9 [facility] HospitalComment on above:Performed By: #### [id number], 1745091, 2991572 #### [facility] (DEFAULT) [address] [place] [address] 14754Syl Diff?AutoInvalid Interpretation [facility] Comment on above:Performed By: #### [id number], 2823626, 0975149 #### [facility] (DEFAULT) [address] [place] [address] 14386DWR (RBC) [Entitic mass]29 tzXoftmm37-08Rriiztlw Hospital Comment on above:Performed By: #### [id number], 9989380, 6900829 #### [facility] (DEFAULT) [address] [place] [address] 09447ETHF (RBC) [Mass/Vol]34 g/fXFrhaxq27-12Egcrqbat Hospital Comment on above:Performed By: #### [id number], 2283728, 1717210 #### [facility] (DEFAULT) [address] [place] [address] 29860ZGI (RBC) [Entitic vol]85 vWHueztj69-842Nvoblyfa Hospital Comment on above:Performed By: #### [id number], 6854243, 1564449 #### [facility] (DEFAULT) [address] [place] [address] 58280Qlnicezu478 h49Xve369-046Gcsbsors HospitalComment on above:Performed By: #### [id number], 8693697, 1058688 #### [facility] (DEFAULT) [address] [place] [address] 33028Odkmbkgc mean volume (Bld) [Entitic vol]7.0 fLNormal 6.3-10.2[facility] HospitalComment on above:Performed By: #### [id number], 8674722, 7750827 #### [facility] (DEFAULT) [address] [place] [address] 53514DXY2.74 u58Wowwnm2.70-5.30[facility] HospitalComment on above:Performed By: #### [id number], 6815358, 0884422 #### [facility] (DEFAULT) [address] [place] [address] 37251PZL2.5 s83Xbemrx0.5-10.5[facility] HospitalComment on above: Performed By: #### [id number], 7939394, 2473325 #### [facility] (DEFAULT) [address] [place] [address] 23246JHZ Standardon 34-70-8351cVRO Non AA>60Invalid Interpretation [facility] HospitalComment on above:Performed By: #### [id number], 3338146, 9872134 #### [facility] (DEFAULT) [address] [place] [address] 77950hAVT AA>60Invalid Interpretation [facility] Comment on above:Performed By: #### [id number], 6706884, 5348976 #### [facility] (DEFAULT) [address] [place] [address] 73854Yfintvq [Mass/Vol]4.1 g/dLNormal3.5-5.0[facility] Comment on above:Performed By: #### [id number], 9942222, 5436356 #### [facility] (DEFAULT) [address] [place] [address] 91834Mdpjitn/Globulin [Mass ratio]1.7 {ratio}Normal1.4-2.6 [facility] HospitalComment on above:Performed By: #### [id number], 8673122, 8067623 #### [facility] (DEFAULT) [address] [place] [address] 46401Mhn Phos40 IU/SImwpvi39-30Rincaycj HospitalComment on above:Performed By: #### [id number], 5577039, 3082325 #### [facility] (DEFAULT) [address] [place] [address] 39402YEK [Catalytic activity/Vol]20.0 U/IAadyvr59.0-54.0 [facility] HospitalComment on above:Performed By: #### [id number], 0294223, 3297054 #### [facility] (DEFAULT) [address] [place] [address] 73073Mqqvx gap [Moles/Vol]9.5 mmol/LNormal5.0-19.0[facility] HospitalComment on above:Performed By: #### [id number], 5817337, 4767053 #### [facility] (DEFAULT) [address] [place] [address] 89844NIT [Catalytic activity/Vol]19 U/ZFfliqa17-00Faxcgxmc HospitalComment on above:Performed By: #### [id number], 8490064, 6763281 #### [facility] (DEFAULT) [address] [place] [address] 39798Musl Total0.7 mg/dLNormal0.3-1.2[facility] HospitalComment on above:Performed By: #### [id number], 4807331, 6993372 #### [facility] (DEFAULT) [address] [place] [address] 68078Civdoao [Mass/Vol]8.4 mg/dLLow8.9-10.3[facility] Hospital Comment on above:Performed By: #### [id number], 2578760, 4169691 #### [facility] (DEFAULT) [address] [place] [address] 50870Tapfihhn [Moles/Vol]109 mmol/DBpqskr652-013Iecdudxn HospitalComment on above:Performed By: #### [id number], 3582140, 1824853 #### [facility] (DEFAULT) [address] [place] [address] 21178QK2 [Moles/Vol]21 mmol/DUcdkjv42-70Tnidiqwv Hospital Comment on above:Performed By: #### [id number], 4325993, 1116866 #### [facility] (DEFAULT) [address] [place] [address] 24757Zxuqftbaii [Mass/Vol]0.71 mg/dLNormal0.60-1.30[facility] HospitalComment on above:Performed By: #### [id number], 5869341, 8011102 #### [facility] (DEFAULT) [address] [place] [address] 30222Lacvjzdb (S) [Mass/Vol]2.4 g/dLNormal1.5-4.3MTrinity Health System East CampusComment on above:Performed By: #### [id number], 4176727, 6103937 #### [facility] (DEFAULT) [address] [place] [address] 29389Zteffey [Mass/Vol]95.0 mg/jKEvcrph50.0-118.0[facility] HospitalComment on above:Performed By: #### [id number], 0535979, 6113453 #### [facility] (DEFAULT) [address] [place] [address] 85953Ewhhqhdxqb840 mOsm/LInvalid Interpretation CodePike Community Hospital HospitalComment on above:Performed By: #### [id number], 3722400, 3364310 #### [facility] (DEFAULT) [address] [place] [address] 46360Xxxnnphih [Moles/Vol]3.5 mmol/LLow3.6-5.1[facility] Hospital Comment on above:Performed By: #### [id number], 2893958, 5312016 #### [facility] (DEFAULT) [address] [place] [address] 98285Qpdnals [Mass/Vol]6.5 g/dLNormal6.5-8.1MTrinity Health System East Campus Comment on above:Performed By: #### [id number], 8790402, 5251635 #### [facility] (DEFAULT) [address] [place] [address] 70230Djdrbb [Moles/Vol]136.0 mmol/VCskhyz415.0-144.0[facility] HospitalComment on above:Performed By: #### [id number], 8017695, 2992177 #### [facility] (DEFAULT) [address] [place] [address] 81026Xfkw nitrogen [Mass/Vol]7 mg/dLLow8-26[facility] Comment on above:Performed By: #### [id number], 6721291, 5863071 #### [facility] (DEFAULT) [address] [place] [address] 10678Tvip nitrogen/Creatinine [Mass ratio]9.8 mg/mgNormal 4.6-16.2MTrinity Health System East CampusComment on above:Performed By: #### [id number], 6522916, 7692623 #### [facility] (DEFAULT) [address] [place] [address] 48344AI Abdomen/Pelvis w/ Contraston 92-87-4169GV Abdomen/Pelvis w/ ContrastEXAMINATION: CT Abdomen/Pelvis w/ Contrast, [...] Monteiro DO 11/02/23 3:37 pm Technologist: DEYVI DUFFYOhioHealth [facility] Clinical Summaryon [id number] Clinical SummaryNationwide [facility] [address] [place] [address] [id number] ED Clinical Summary PERSON INFORMATION Name: JAZ SANDERS Age: 28 Years Sex: FEMALE : 1995 MRN: Acct#: Visit Reason: Abdominal pain; Nausea; FLANK/HIP PAIN, FEVER Arrival: 11/02/2023 07:57:28 Discharge: 11/02/2023 13:31:00 LOS: 000 05:34 Check In: 11/02/2023 07:57:28 Checkout:11/02/2023 13:31:00 [facility] [address] PCP: Amanda Ford CNP PROVIDER INFORMATION Provider [...] Follow-Up: With: Address: When: Amanda Ford CNP [address] [place] [address] Within 3 to 5 days DIAGNOSIS: 1:Hip pain Patient Understands: Yes - Patient/family/caregiver verbalizes understanding of instructions given Comment:[facility] Patient Summaryon [id number] Patient Summary [facility] - Emergency Department [address] [place] [address] PATIENT DISCHARGE INSTRUCTIONS Patient Information Name: JAZ SANDERS Age: 28 Years Date of : 1995 Reason For Visit: Abdominal pain; Nausea; FLANK/HIP PAIN, FEVER Arrival Time: 11/02/2023 07:57:28 Primary Care Physician: Amanda Ford CNP Attending Physician: Narda Phillips MD Comment: Visit Diagnosis: Diagnoses This Visit Abdominal pain ([id number]-N9K1-6H9V69DZ1VG4) Hip pain (M25.559) Nausea (PKx7AXH5zLnmEdPUc5fybz) The Pharmacy at [facility] is open Tuesday through Tuesday from [...] alcohol and/or drug addiction problems; contact the [facility] 08/11 Crisis Hotline -Text 8HDEM ot 788420. If you received any narcotics, sedation, or [...] documents With: Address: When: Amanda Ford CNP [facility] [place] [address] Within 3 to 5 days Medication Information: The exam and treatment you received today in the [facility] Emergency Department were for an urgent problem and are not intended as complete care. It is important for you to follow up with a doctor, nurse practitioner, or physician?s publisher assistant for ongoing care. If your symptoms [...] so we can reach you if necessary. [facility] Emergency Department has provided you with a complete list of medications post discharge. Please inform your weaver hand loom/provider of your visit and for further instruction on these medications. Any specific questions regarding your chronic medications and dosages should be discussed with your primary care physician(s) and/or pharmacist. New Medications [facility] [id number] [place], [place] [id number], [phone] cyclobenzaprine (cyclobenzaprine 10 mg oral tablet) 1 [...] Refills: 0. lidocaine topic (more content not included)...[facility] HospitalExtra Green on 78-24-7865Hhab CollectedYesInvalid Interpretation [facility] Comment on above:Performed By: #### [id number], [id number], [id number] #### [facility] (DEFAULT) [address] [place] [address] 59321Prpcaetqy Test Urine 1on 11-02-2023U PregNegativeEast Liverpool City HospitalComment on above:Performed By: #### [id number] #### [facility] (DEFAULT) [address] [place] [address] 50296Z Preg Internal ControlPassMiddletown HospitalComment on above:Performed By: #### [id number] #### [facility] (DEFAULT) [address] [place] [address] 03175PZ Rngkl3zq 29-26-8912ZJ BacteriaTraceMiddletown HospitalComment on above:Order Comment: Urinalysis Microscopic order added on by [employer] Rules system.Performed By: #### [id number] #### [facility] (DEFAULT) [address] [place] [address] 56690GM Mucous1+[place] HospitalComment on above:Order Comment: Urinalysis Microscopic order added on by [employer] Expert Rules system. Performed By: #### [id number] #### [facility] (DEFAULT) [address] [place] [address] 26306YA RBCNone SeenMcKitrick Hospital HospitalComment on above: Order Comment: Urinalysis Microscopic order added on by [employer] Expert Rules system.Performed By: #### [id number] #### [facility] (DEFAULT) [address] [place] [address] 60304UR Squam EpiFewNoSelect Medical [facility] HospitalComment on above: Order Comment: Urinalysis Microscopic order added on by [employer] Expert Rules system.Performed By: #### [id number] #### [facility] (DEFAULT) [address] [place] [address] 79943KK WBCNone SeenMcKitrick Hospital HospitalComment on above: Order Comment: Urinalysis Microscopic order added on by [employer] Expert Rules system.Performed By: #### [id number] #### [facility] (DEFAULT) [address] [place] [address] [id number] w Culture if Ind Standardon [id number] UA NormalPike Community Hospital HospitalComment on above:Performed By: #### [id number] #### [facility] (DEFAULT) [address] [place] [address] [id number] (U)Dark YellowNoCommunity Regional Medical CenterComment on above:Performed By: #### [id number] #### [facility] (DEFAULT) [address] [place] [address] [id number]?Not IndicatedInvalid Interpretation [facility] HospitalComment on above:Result Comment: Result created by rule GL_MAGR_ADD_UA_CULTPerformed By: #### [id number] #### [facility] (DEFAULT) [address] [place] [address] [id number] (U) [Mass/Vol]NegativeMcKitrick Hospital Hospital Comment on above:Performed By: #### [id number] #### [facility] (DEFAULT) [address] [place] [address] [id number] Ql (U)TRACENormalMagruder HospitalComment on above:Performed By: #### [id number] #### [facility] (DEFAULT) [address] [place] [address] [id number]?IndicatedInvalid Interpretation CodeDcgruder HospitalComment on above:Result Comment: Result created by rule GL_MAGR_ADD_UA_MICROPerformed By: #### [id number] #### [facility] (DEFAULT) [address] [place] [address] [id number] BilirubinMODERATEAbnormalDcgrchillicothe va medical center HospitalComment on above:Performed By: #### [id number] #### [facility] (DEFAULT) [address] [place] [address] [id number] BloodNegativeNormalNEGATIVEMagrchillicothe va medical center HospitalComment on above:Performed By: #### [id number] #### [facility] (DEFAULT) [address] [place] [address] [id number] ClaritySL CLOUDYAbnormalCLEARMagrchillicothe va medical center HospitalComment on above:Performed By: #### [id number] #### [facility] (DEFAULT) [address] [place] [address] [id number] Leuk EstNegativeNormalNEGATIVEPike Community Hospital HospitalComment on above:Performed By: #### [id number] #### [facility] (DEFAULT) [address] [place] [address] [id number] NitriteNegativeNormalNEGATIVEDcgrchillicothe va medical center HospitalComment on above:Performed By: #### [id number] #### [facility] (DEFAULT) [address] [place] [address] [id number] pH6.3Ucujgu6-2Dmnxjvfb HospitalComment on above: Performed By: #### [id number] #### [facility] (DEFAULT) [address] [place] [address] [id number] Owfqago12EbhvgkudZONOYPMOJagzhszk HospitalComment on above:Performed By: #### [id number] #### [facility] (DEFAULT) [address] [place] [address] 04005UW Spec Grav>=1.386Vvauma6.001-1.035[facility] Hospital Comment on above:Performed By: #### [id number] #### [facility] (DEFAULT) [address] [place] [address] [id number] Urobilinogen1.0 mg/dLNormal0.2-1.0[facility] Comment on above:Performed By: #### [id number] #### [facility] (DEFAULT) [address] [place] [address] 70699Woege SourceClean CatchMiddletown HospitalComment on above:Performed By: #### [id number] #### [facility] (DEFAULT) [address] [place] [address] 87341Rhl [facility].on 51-02-2438Cbg [facility] Lung CenterComment on above:Performed By: #### [id number] #### [facility] (DEFAULT) [address] [place] [address] 38955Yqzpst Summaryon 63-17-6357Xrjsvg SummaryHTMLBase 64 YypubrejUXw7yLq+PGhlYWQ+YS9RHBPkM46klLNjjL0sC0DVDXuIMojcJDFLEXdDZxAtetRiKQ9paMLh ZXJu [file] [facility] [place] content not included)...[place] HospitalBasophils Auto (Bld) [#/Vol]on 72-70-9811Dxawnzfsh (Bld) [#/Vol]0.0 x100.0-0.2FGalion HospitalBasophils/100 WBC Auto (Bld)on 01-52-6488Ymkahoxwt/100 WBC (Bld) 0.3 %0.2-2.0[facility] HospitalEosinophils/100 WBC Auto (Bld)on 82-41-8737Jqeunehtsef/100 WBC (Bld)2.7 %0.9-4.0[facility] Erythrocyte distribution width Auto (RBC) [Ratio]on 32-50-0829Ekjhqaxzjsp distribution width (RBC) [Ratio]14.1 %11.5-15.0[facility] Hematocrit Auto (Bld) [Volume fraction]on 05-99-8200Vbufpgmrds (Bld) [Volume fraction]41.4 %High33.7-40.4FGalion HospitalHemoglobin [Mass/volume] in Bloodon 41-54-0512Ghgnnglmzg (Bld) [Mass/Vol]14.0 g/dL11.3-15.9 [facility] HospitalIron binding capacity [Mass/volume] in Serum or Plasmaon 70-38-9264Wxdh binding capacity [Mass/Vol]405 mcg/uBUkmg789-249 [facility] HospitalIron saturation [Mass Fraction] in Serum or Plasmaon 33-48-6562Hgrk saturation [Mass fraction]12 %Auv06-57KxqcguikxLicking Memorial HospitalLaboratory - Chemistry and Chemistry - challengeon 67-57-5858Pfdh [Mass/Vol]48.0 ug/dL28.0-170.0[facility] HospitalTransferrin [Mass/Vol]289.2 mg/dL192.0-382.0[facility] HospitalLeukocytes [#/volume] corrected for nucleated erythrocytes in Blood by Automated counon 61-56-4221QKX corrected for nucl RBC Auto (Bld) [#/Vol]6.4 x103.5-10.5FGalion HospitalLymphocytes Auto (Bld) [#/Vol]on 54-81-7900Rpqqwyskdsa (Bld) [#/Vol]2.2 x101.3-2.9[facility] HospitalLymphocytes/100 WBC Auto (Bld)on 36-88-0924Jdkgjxxmmss/100 WBC (Bld)34 %14-48[facility] HospitalMCH Auto (RBC) [Entitic mass]on 01-53-4809TZM (RBC) [Entitic mass] 29 ts72-45KsfdoqnfoLicking Memorial HospitalMCHC Auto (RBC) [Mass/Vol]on 69-64-6246DRWJ (RBC) [Mass/Vol]34 g/tJ45-03FnzfikskbLicking Memorial HospitalMCV Auto (RBC) [Entitic vol]on 47-28-9661BJE (RBC) [Entitic vol]87 fL03-095ApdtsowjwLicking Memorial HospitalMonocytes Auto (Bld) [#/Vol]on 66-32-7843Iyliccnhf (Bld) [#/Vol]0.4 x100.0-0.8[facility] HospitalMonocytes/100 WBC Auto (Bld)on 32-67-5417Ngwwosugp/100 WBC (Bld)6 %1-12[facility] HospitalNeutrophils Auto (Bld) [#/Vol]on 14-95-5928Zghyqgoexoa (Bld) [#/Vol]3.7 x101.5-9.2FGalion HospitalNeutrophils/100 WBC Auto (Bld)on 01-34-2400Adqmgzvgous/100 WBC (Bld)57 %44-88[facility] HospitalNo Panel Informationon 64-47-0791Fzi Manual DifferentialAuto AutoLicking Memorial HospitalEosinophils # (Auto)0.2 x100.0-0.4FGalion HospitalPlatelet mean volume Auto (Bld) [Entitic vol]on 78-82-5544Ejzcarzs mean volume (Bld) [Entitic vol]6.7 fL6.3-10.2FGalion Hospital Platelets Auto (Bld) [#/Vol]on 58-60-3498Bsbithvlo (Bld) [#/Vol]179 u74972-781 [facility] HospitalRBC Auto (Bld) [#/Vol]on 41-73-6754JUW (Bld) [#/Vol]4.76 x103.70-5.30[facility] HospitalFollitropin [Units/volume] in Serum or PlasmaOrdered By: LEOBARDO BARROSO on 06-23-2022 Follitropin Qn6.2 m[IU]/mLLicking Memorial HospitalComment on above: FEMALE NORMALS (PREMENOPAUSE) MID-FOLLICULAR PHASE: 3.9-8.8 mIU/mL MID-CYCLE PEAK: 4.5-22.5 mIU/mL MID-LUTEAL PHASE: 1.8-5.1 mIU/mLFEMALE NORMALS (POSTMENOPAUSE): 16.7-113.6 mIU/mLMALE NORMALS: 1.3-19.3 mIU/mLProlactin [Mass/volume] in Serum or PlasmaOrdered By: LEOBARDO BARROSO on 06-23-2022 Prolactin [Mass/Vol]7.58 ng/mL3.34-26.72[facility] HospitalCT biopsyOrdered By: Amanda Ford on 80-91-5300Blvmyuuoagl [Mass/Vol]393 mg/hT812-362YyrfvrtxhLicking Memorial HospitalIron [Mass/volume] in Serum or PlasmaOrdered By: Amanda Ford on 97-39-7530Uyqt [Mass/Vol]34 ug/yU23-363 [facility] HospitalIron binding capacity [Mass/volume] in Serum or PlasmaOrdered By: Amanda Ford on 38-10-1263Dudu binding capacity [Mass/Vol]550 ug/rA919-644NzwmkkyczLicking Memorial HospitalIron saturation [Mass Fraction] in Serum or PlasmaOrdered By: Amanda Ford on 67-38-4873Ohxa saturation [Mass fraction]6.2 %20-50[facility] Anisocytosis LM Ql (Bld)Ordered By: Farhad Gallego on 68-55-7359Jbczbcjdtlzd Ql (Bld)MarkedLicking Memorial HospitalBasophils Auto (Bld) [#/Vol]Ordered By: Farhad Gallego on 54-09-6207Vijidsjjy (Bld) [#/Vol]N/[facility] HospitalBasophils/100 WBC Auto (Bld)Ordered By: Farhad Gallego on 06-11-2022 Basophils/100 WBC (Bld)N/[facility] HospitalBasophils/100 WBC Manual cnt (Bld)Ordered By: Farhad Gallego on 63-08-6475Fkoepqvsv/100 WBC (Bld)1 % 0-2FGalion HospitalEosinophils Auto (Bld) [#/Vol]Ordered By: Farhad Gallego on 05-02-0145Lzthbrhdkdk (Bld) [#/Vol]N/[facility] HospitalEosinophils/100 WBC Auto (Bld)Ordered By: Farhad Lashonda on 06-11-2022 Eosinophils/100 WBC (Bld)N/[facility] HospitalEosinophils/100 WBC Manual cnt (Bld)Ordered By: Farhad Lashonda on 38-99-8103Kdbmqxpbcwz/100 WBC (Bld) 7 %1-3FGalion HospitalErythrocyte distribution width Auto (RBC) [Ratio]Ordered By: Farhad Lashonda on 67-94-1978Mlwhwdszmly distribution width (RBC) [Ratio]26.1 %11.9-15.3FGalion HospitalHematocrit Auto (Bld) [Volume fraction]Ordered By: Farhad Lashonda on 96-52-4355Evwnutdjht (Bld) [Volume fraction]25.7 %34.0-46.4FGalion HospitalHemoglobin [Mass/volume] in BloodOrdered By: Farhad Lashonda on 84-89-9329Ceszlaaesq (Bld) [Mass/Vol]8.0 g/dL11.8-15.4FGalion HospitalHypochromia LM Ql (Bld)Ordered By: Farhad Lashonda on 97-53-2970Rbjqfflbmre Ql (Bld)[facility] - CincinnatiLeukocytes [#/volume] corrected for nucleated erythrocytes in Blood by Automated counOrdered By: Farhad Lashonda on 04-29-0020AYU corrected for nucl RBC Auto (Bld) [#/Vol]5.0 10*3/uL3.8-11.6FGalion HospitalLymphocytes Auto (Bld) [#/Vol]Ordered By: Farhad Lashonda on 17-84-1231Yixlileerlp (Bld) [#/Vol]N/[facility] Lymphocytes/100 WBC Auto (Bld)Ordered By: Farhad Lashonda on 06-11-2022 Lymphocytes/100 WBC (Bld)N/[facility] HospitalLymphocytes/100 WBC Manual cnt (Bld)Ordered By: Farhad Lashonda on 32-64-7703Jgquxnccfir/100 WBC (Bld) 56 %18-42[facility] HospitalMCH Auto (RBC) [Entitic mass]Ordered By: Farhad Lashonda on 48-02-2246VGA (RBC) [Entitic mass]21.1 pg24.7-34.3FGalion HospitalMCHC Auto (RBC) [Mass/Vol]Ordered By: Farhad Lashonda on 31-40-0826GMFC (RBC) [Mass/Vol]31.2 g/dL32.0-35.0[facility] HospitalMCV Auto (RBC) [Entitic vol]Ordered By: Farhad Lashonda on 05-14-5973NZB (RBC) [Entitic vol]67.6 fD69-310SaohwmcesLicking Memorial HospitalMicrocytes LM Ql (Bld)Ordered By: Farhad Lashonda on 17-73-8757Ssimkzfdcl Ql (Bld)MarkedLicking Memorial HospitalMonocytes Auto (Bld) [#/Vol]Ordered By: Farhad Lashonda on 90-32-8780Rinrcwfzf (Bld) [#/Vol]N/[facility] Monocytes/100 WBC Auto (Bld)Ordered By: Farhad Lashonda on 34-39-1481Mabusvrys/100 WBC (Bld)N/[facility] HospitalMonocytes/100 WBC Manual cnt (Bld) Ordered By: Farhad Lashonda on 07-72-2233Ewtciolez/100 WBC (Bld)5 %2-11[facility] HospitalNeutrophils Auto (Bld) [#/Vol]Ordered By: Farhad Lashonda on 95-20-9119Tglhkwxtcan (Bld) [#/Vol]N/[facility] Neutrophils/100 WBC Auto (Bld)Ordered By: Farhad Lashonda on 06-11-2022 Neutrophils/100 WBC (Bld)N/[facility] HospitalNucleated erythrocytes [Presence] in Blood by Automated countOrdered By: Farhad Lashonda on 01-54-4274Ekcnekxja RBC Auto Ql (Bld)N/[facility] Platelet adequacy [Presence] in Blood by Light microscopyOrdered By: Farhad Lashonda on 87-63-6747Mmrzhdmdp LM Ql (Bld)NormalNoDayton VA Medical CenterPlatelet mean volume Auto (Bld) [Entitic vol]Ordered By: Farhad Lashonda on 52-99-4037Qisqocau mean volume (Bld) [Entitic vol]8.2 fL6.3-10.7FGalion HospitalPlatelet morphology finding [Identifier] in BloodOrdered By: FarhadMerchant on 97-73-2001Tmctarge morphology finding Nom (Bld)NormalNoOhioHealth Berger HospitalPlatelets Auto (Bld) [#/Vol]Ordered By: Farhad Lashonda on 81-33-5704Phnzwzvin (Bld) [#/Vol]165 10*3/lM899-794MhmguceozLicking Memorial HospitalPolychromasia [Presence] in Blood by Light microscopyOrdered By: Farhad Gallego on 14-51-1407Rqbjaplhcxvyh LM Ql (Bld)[facility] HospitalRB Auto (Bld) [#/Vol]Ordered By: Farhad Gallego on 43-87-4444VWS (Bld) [#/Vol]3.80 10*6/uL3.60-5.00[facility] HospitalRB morphologyOrdered By: Farhad Gallego on 31-63-2756XFA morphology finding Nom (Bld) N/AFDoctors Hospitalegmented neutrophils/100 WBC Manual cnt (Bld)Ordered By: Farhad Gallego on 93-45-6277Mpjhohclv neutrophils/100 WBC (Bld)32 %50-70[facility] HospitalWBC Auto (Bld) [#/Vol]Ordered By: Farhad Gallego on 78-05-3245JIL (Bld) [#/Vol]5.0 10*3/uL3.8-11.6FGalion HospitalActivated partial thromboplastin time (aPTT) in platelet poor plasma by coagulation aOrdered By: Jean Jett on 43-46-7596dKCO Coag (PPP) [Time]29.8 s25.1-36.5FGalion HospitalAnisocytosis LM Ql (Bld) Ordered By: Jean Jett on 88-69-8490Eqovwedpvhqg Ql (Bld)[facility] HospitalBasophils Auto (Bld) [#/Vol]Ordered By: Jean Jett on 48-55-3393Iggyjedcx (Bld) [#/Vol]0.1 10*3/uL0.0-0.2FGalion HospitalBasophils/100 WBC Auto (Bld)Ordered By: Jean Jett on 06-10-2022 Basophils/100 WBC (Bld)1.8 %.[facility] HospitalBilirubin Test strip Ql (U)Ordered By: Jean Jett on 71-06-7253Tgikbfigt Ql (U)Negative NegativeLicking Memorial HospitalCT biopsyOrdered By: Jean Jett on 15-99-9639Jqjryrognkc [Mass/Vol]380 mg/tD254-576UfjvurklmLicking Memorial HospitalCalcium [Mass/volume] in Serum or PlasmaOrdered By: Jean Jett on 83-16-6807Dyausgh [Mass/Vol]8.6 mg/dL8.2-10.2FGalion Hospital Carbon dioxide, total [Moles/volume] in Serum or PlasmaOrdered By: Jean Jett on 72-94-5290MW9 [Moles/Vol]23.3 mmol/L22.0-30.0[facility] HospitalChloride [Moles/volume] in Serum or PlasmaOrdered By: Jean Jett on 43-59-2381Uegsqizu [Moles/Vol]106 mmol/T52-480YhvektczoLicking Memorial Hospital Color Auto (U)Ordered By: Jean Jett on 58-87-0839Rcejt (U)YellowYellow [facility] HospitalCreatine kinase [Enzymatic activity/volume] in Serum or PlasmaOrdered By: Jean Jett on 30-11-5685AT [Catalytic activity/Vol] 100 U/F51-949VvjrqhwxfLicking Memorial HospitalCreatinine and Glomerular filtration rate.predicted panel (S/P/Bld)Ordered By: Jean Jett on 06-10-2022 Creatinine [Mass/Vol]0.71 mg/dL0.44-1.03[facility] Eosinophils Auto (Bld) [#/Vol]Ordered By: Jean Jett on 38-33-1268Quklalgvfrj (Bld) [#/Vol]0.3 10*3/uL0.0-0.45[facility] HospitalEosinophils/100 WBC Auto (Bld)Ordered By: Jean Jett on 99-89-3787Nxckavrmsrk/100 WBC (Bld) 5.0 %.[facility] HospitalErythrocyte distribution width Auto (RBC) [Ratio]Ordered By: Jean Jett on 24-18-7972Iazegpjlvmh distribution width (RBC) [Ratio]24.6 %11.9-15.3FGalion HospitalEstimated glomerular filtration rate (GFR) non- AmericanOrdered By: Jean Jett on 40-03-2826ARO/1.73 sq M.predicted among non-blacks MDRD (S/P/Bld) [Vol rate/Area]> 60 mL/MinLicking Memorial HospitalFecal occult blood detection by immunochemistryOrdered By: Jean Jett on 06-10-2022 Hemoglobin.gastrointestinal Ql (Stl)[facility] HospitalGlucose [Mass/volume] in Serum or PlasmaOrdered By: Jean Jett on 42-14-0836Vadznvu [Mass/Vol]94 mg/eB76-961MhvwwxcceLicking Memorial HospitalComment on above:ADA recommended reference rangeRandom Glucose Reference Range is dependent on time and content of last meal. Glucose of more than 200 mg/dL in a nonstressed, ambulatory subject supports the diagnosisof Diabetes Mellitus.HCG ( test) IA.rapid Ql (U)Ordered By: Jean Jett on 43-38-1149NOA ( test) Ql (U)NegativeLicking Memorial HospitalHematocrit Auto (Bld) [Volume fraction]Ordered By: Jean Jett on 06-37-1695Qxrengfcpo (Bld) [Volume fraction]23.8 %34.0-46.4FGalion HospitalHemoglobin [Mass/volume] in BloodOrdered By: Jean Jett on 49-97-4242Mrbgitmpxj (Bld) [Mass/Vol]7.3 g/dL11.8-15.4FGalion HospitalHypochromia LM Ql (Bld)Ordered By: Jean Jett on 34-67-5591Igbeuygknhl Ql (Bld)MarkedLicking Memorial HospitalIron [Mass/volume] in Serum or PlasmaOrdered By: Jean Jett on 89-41-7522Bgwo [Mass/Vol]25 ug/uI50-902RkedluhqtLicking Memorial HospitalIron binding capacity [Mass/volume] in Serum or PlasmaOrdered By: Jean Jett on 36-38-8128Rabq binding capacity [Mass/Vol]532 ug/rL848-615IswpqjsxgLicking Memorial HospitalIron saturation [Mass Fraction] in Serum or PlasmaOrdered By: Jean Jett on 45-43-6132Xpbi saturation [Mass fraction]4.7 %20-50[facility] HospitalKetones Auto test strip (U) [Mass/Vol]Ordered By: Jean Jett on 96-50-5960Txasvey (U) [Mass/Vol]NegativeNegativeLicking Memorial HospitalLaboratory - Chemistry and Chemistry - challengeOrdered By: Jean Jett on 99-18-6151Orgwqsjty [Mass/Vol]1.9 mg/dL1.6-2.6FGalion HospitalNatriuretic peptide B (Bld) [Mass/Vol]23.0 pg/mL5-100[facility] HospitalLaboratory - CoagulationOrdered By: Jean Jett on 32-83-3550NH Coag (PPP) [Time]12.9 s9.0-12.9[facility] Leukocytes [#/volume] corrected for nucleated erythrocytes in Blood by Automated counOrdered By: Jean Jett on 88-51-8967BPF corrected for nucl RBC Auto (Bld) [#/Vol]5.3 10*3/uL3.8-11.6FGalion HospitalLymphocytes Auto (Bld) [#/Vol]Ordered By: Jean Jett on 77-15-3174Bjrzxlrprec (Bld) [#/Vol]2.2 10*3/uL1.00-4.8[facility] HospitalLymphocytes/100 WBC Auto (Bld) Ordered By: Jean Jett on 09-74-9142Sceoimuyepk/100 WBC (Bld)41.3 %.[facility] HospitalMCH Auto (RBC) [Entitic mass]Ordered By: Jean Jett on 25-62-4907TTM (RBC) [Entitic mass]19.7 pg24.7-34.3FGalion HospitalMCHC Auto (RBC) [Mass/Vol]Ordered By: Jean Jett on 35-46-5692NRII (RBC) [Mass/Vol]30.6 g/dL32.0-35.0[facility] HospitalMCV Auto (RBC) [Entitic vol]Ordered By: Jean Jett on 05-54-9298OZI (RBC) [Entitic vol]64.5 eG23-042FrdtepctiLicking Memorial HospitalMicrocytes LM Ql (Bld)Ordered By: Jean Jett on 60-98-3619Detdobveks Ql (Bld)MarkedLicking Memorial HospitalMonocyte distribution width [Entitic volume] in Blood by AutomatedOrdered By: Jean Jett on 85-88-9642Tpssrsuv distribution width Auto (Bld) [Entitic vol]17.54 %0.00-20.00[facility] HospitalMonocytes Auto (Bld) [#/Vol]Ordered By: Jean Jett on 23-90-0276Bjzxvkkwm (Bld) [#/Vol]0.4 10*3/uL 0.0-0.8[facility] HospitalMonocytes/100 WBC Auto (Bld)Ordered By: Jean Jett on 67-12-8895Jagajvaij/100 WBC (Bld)6.8 %.[facility] HospitalNeutrophils Auto (Bld) [#/Vol]Ordered By: Jean Jett on 30-91-0889Yxyxavjqchj (Bld) [#/Vol]2.4 10*3/uL1.8-7.7FGalion HospitalNeutrophils/100 WBC Auto (Bld)Ordered By: Jean Jett on 06-10-2022 Neutrophils/100 WBC (Bld)45.1 %.[facility] HospitalNitrite Test strip Ql (U)Ordered By: Jean Jett on 81-26-8025Juoqixu Ql (U)NegativeNegative [facility] HospitalNo Panel InformationOrdered By: Jean Jett on 74-75-0551Rsdlcytpm GFR ()> 60 mL/MinLicking Memorial HospitalComment on above:GFR estimated reference range: According to KDOQI guidelines, <60 ml/min/1.73m2 is sufficient todiagnose a patient with chronic kidney disease.Pharmacy Creatinine Clearance (Rmdu068.49[facility] HospitalNucleated erythrocytes [Presence] in Blood by Automated count Ordered By: Jean Jett on 02-59-0826Yqvfhddrm RBC Auto Ql (Bld)0.1 /100{WBC} 0-0.5FGalion HospitalOvalocyte detectionOrdered By: Jean Jett on 76-77-4519Svlvvuyhee LM Ql (Bld)SlightLicking Memorial Hospital Platelet adequacy [Presence] in Blood by Light microscopyOrdered By: Jean Jett on 86-78-6885Wdxmgbymz LM Ql (Bld)NormalNormFort Hamilton HospitalPlatelet mean volume Auto (Bld) [Entitic vol]Ordered By: Jean Jett on 64-55-8629Caytiumq mean volume (Bld) [Entitic vol]8.3 fL6.3-10.7FGalion HospitalPlatelet morphology finding [Identifier] in BloodOrdered By: Jean Jett on 23-01-0439Ocegpxwd morphology finding Nom (Bld)NormalNormal [facility] HospitalPlatelet poor plasma international normalized ratio (INR) by coagulation assay (relatOrdered By: Jean Jett on 25-73-1911IEE Coag (PPP) [Relative time]1.1 {INR}[facility] HospitalComment on above:INR Therapeutic Range A) Pre- [...] Auto (Bld) [#/Vol]Ordered By: Jean Jett on 16-08-7074Dsywdpuxm (Bld) [#/Vol]202 10*3/dL086-338JcqhybpymLicking Memorial HospitalPoikilocytosis [Presence] in Blood by Light microscopyOrdered By: Jean Jett on 65-83-9442Dmngkbibgiufuc LM Ql (Bld)[facility] CenterPolychromasia [Presence] in Blood by Light microscopyOrdered By: Jean Jett on 78-86-0217Tfqvmumxyjuzu LM Ql (Bld)[facility] CenterPotassium [Moles/volume] in Serum or PlasmaOrdered By: Jean Jett on 51-04-8818Kngjbalwn [Moles/Vol]4.1 mmol/L3.5-5.1FGalion HospitalProtein Auto test strip (U) [Mass/Vol]Ordered By: Jean Jett on 29-32-2217Giceyaq (U) [Mass/Vol]NegativeNegativeLicking Memorial HospitalRBC Auto (Bld) [#/Vol]Ordered By: Jean Jett on 35-75-2577[place] (Bld) [#/Vol]3.69 10*6/uL3.60-5.00[facility] morphology Ordered By: Jean Jett on 82-33-5970DED morphology finding Nom (Bld)N/A Protestant Hospitalerum or plasma anion gap determinationOrdered By: Jean Jett on 21-86-0011Sdjzz gap [Moles/Vol]10.8 mmol/L6.0-15.0[facility] Hospitalodium [Moles/volume] in Serum or PlasmaOrdered By: Jean Jett on 35-00-6439Psntrw [Moles/Vol]136 mmol/R585-112WyaevzosaProtestant Hospitalpecific gravity Auto test strip (U) [Rel density]Ordered By: Jean Jett on 52-74-2277Pwzbldjy gravity (U) [Rel density]1.0101.001-1.030 [facility] HospitalTarget cellsOrdered By: Jean Jett on 16-51-8038Zyvjmy cells LM Ql (Bld)[facility] Teardrop cell detectionOrdered By: Jean Jett on 55-21-0043Nngzlgyfvi LM Ql (Bld)[facility] CenterTroponin I.cardiac [Mass/volume] in Serum or Plasma by High sensitivity methodOrdered By: Jean Jett on 06-10-2022 Troponin I.cardiac High sensitivity method [Mass/Vol]< 3 pg/mL0-15[facility] HospitalUrea nitrogen [Mass/volume] in Serum or PlasmaOrdered By: Jean Jett on 18-28-3114Efov nitrogen [Mass/Vol]9 mg/dL9[facility] HospitalUrine clarity by refractometry automatedOrdered By: Jean Jett on 78-46-1311Dhayfde Refractometry automated (U)ClearClearFGalion HospitalUrine glucose measurement by automated test strip (mass/volume) Ordered By: Jean Jett on 38-24-2276Pbswolf Auto test strip (U) [Mass/Vol] Normal mg/dLNoDayton VA Medical CenterUrine hemoglobin detection by automated test stripOrdered By: Jean Jett on 85-49-4732Chxbmjkpfr Auto test strip Ql (U)NegativeNegGreene Memorial HospitalUrine leukocyte esterase detection by automated test stripOrdered By: Jean Jett on 06-10-2022 Leukocyte esterase Auto test strip Ql (U)NegativeNegGreene Memorial HospitalUrobilinogen Auto test strip (U) [Mass/Vol]Ordered By: Jean Jett on 67-42-7882Svqeqwpzzdyl (U) [Mass/Vol]Normal mg/dLNoDayton VA Medical CenterWBC Auto (Bld) [#/Vol]Ordered By: Jean Jett on 83-39-6777ZKD (Bld) [#/Vol]5.3 10*3/uL3.8-11.6FGalion Hospital pH Auto test strip (U)Ordered By: Jean Jett on 40-85-5713nA (U)5.5 [pH] 5.0-9.0[facility] HospitalAlkaline phosphatase [Enzymatic activity/volume] in Serum or PlasmaOrdered By: Julieta Jefferson on 17-19-3396WAD [Catalytic activity/Vol]39 U/N99-10HyyxvlawxLicking Memorial HospitalAnisocytosis LM Ql (Bld)Ordered By: Julieta Jefferson on 33-87-6310Umppseciioyd Ql (Bld)Marked [facility] HospitalAspartate aminotransferase [Enzymatic activity/volume] in Serum or PlasmaOrdered By: Julieta Jefferson on 23-83-0815RPJ [Catalytic activity/Vol]15 U/M44-31EfbsolxyrLicking Memorial HospitalBasophils Auto (Bld) [#/Vol]Ordered By: Julieta Jefferson on 74-96-7354Uanxehqvv (Bld) [#/Vol] 0.1 10*3/uL0.0-0.2FGalion HospitalBasophils/100 WBC Auto (Bld) Ordered By: Julieta Jefferson on 74-46-8657Byzrckvhx/100 WBC (Bld)1.4 %.[facility] HospitalBody fluid albumin measurement (mass/volume)Ordered By: Julieta Jefferson on 45-47-3566Ilwgokk (Body fld) [Mass/Vol]4.1 g/dL3.2-5.5FGalion HospitalCalcium [Mass/volume] in Serum or PlasmaOrdered By: Julieta Jefferson on 58-02-7678Kkygrdz [Mass/Vol]9.0 mg/dL8.2-10.2FGalion HospitalCarbon dioxide, total [Moles/volume] in Serum or PlasmaOrdered By: Julieta Jefferson on 32-30-6127CX7 [Moles/Vol]23.3 mmol/L22.0-30.0[facility] HospitalCholesterol [Mass/volume] in Serum or PlasmaOrdered By: Julieta Jefferson on 48-22-7221Texwqeykaku [Mass/Vol]137 mg/lS630-862HupuskodmLicking Memorial HospitalComment on above:Chol less than 200 mg/dl low riskChol 201-239 mg/dl borderline riskChol 240 mg/dl and greater high riskCholesterol in LDL Calc [Mass/Vol]Ordered By: Julieta Jefferson on 23-81-8627Vqvwguaftor in LDL [Mass/Vol]72 mg/dL0-100[facility] HospitalComment on above:LDL ATP III CLASSIFICATIONLDL less than 100 mg/dL OptimalLDL 100-129 mg/dL Near or above dopffdaNGO658-005 mg/dL Borderline highLDL 160-189 mg/dL HighLDL greater than 189 mg/dL Very highCholesterol in VLDL Calc [Mass/Vol]Ordered By: Julieta Jefferson on 46-76-4076Qmfxcczwmeh in VLDL [Mass/Vol]9 mg/dLLicking Memorial HospitalCreatinine and Glomerular filtration rate.predicted panel (S/P/Bld)Ordered By: Julieta Jefferson on 70-65-4465Wkojwgebki [Mass/Vol]0.59 mg/dL0.44-1.03Licking [facility] HospitalEosinophils Auto (Bld) [#/Vol]Ordered By: Julieta Jefferson on 62-12-1222Wquxwzqakio (Bld) [#/Vol]0.3 10*3/uL0.0-0.45L[facility] HospitalEosinophils/100 WBC Auto (Bld)Ordered By: Julieta Jefferson on 06-09-2022 Eosinophils/100 WBC (Bld)6.8 %.L[facility] HospitalErythrocyte distribution width Auto (RBC) [Ratio]Ordered By: Julieta Jefferson on 06-09-2022 Erythrocyte distribution width (RBC) [Ratio]24.5 %11.9-15.3FGalion HospitalEstimated glomerular filtration rate (GFR) non- Ordered By: Julieta Jefferson on 64-55-7199GGF/1.73 sq M.predicted among non-blacks MDRD (S/P/Bld) [Vol rate/Area]> 60 mL/MinLicking Memorial Hospital Globulin Calc (S) [Mass/Vol]Ordered By: Julieta Jefferson on 52-88-9822Bywurenc (S) [Mass/Vol]2.3 g/dLLicking Memorial HospitalGlucose mean value [Mass/volume] in Blood Estimated from glycated hemoglobinOrdered By: Julieta Jefferson on 95-80-0159Ghnfhvb glucose Estimated from glycated hemoglobin (Bld) [Mass/Vol]97 mg/dLLicking Memorial HospitalHematocrit Auto (Bld) [Volume fraction]Ordered By: Julieta Jefferson on 53-81-8724Sjezimcmxg (Bld) [Volume fraction]26.0 %34.0-46.4FGalion HospitalHemoglobin A1c percentageOrdered By: Julieta Jefferson on 31-82-7715ByD5z (Bld) [Mass fraction]5.0 % 4.3-5.6FGalion HospitalComment on above:Increased risk for diabetes: 5.7 - 6.4diabetes: >6.4glycemic control for adults with diabetes: &l t;7.0Hemoglobin [Mass/volume] in BloodOrdered By: Julieta Jefferson on 06-09-2022 Hemoglobin (Bld) [Mass/Vol]7.8 g/dL11.8-15.4FGalion Hospital Hypochromia LM Ql (Bld)Ordered By: Julieta Jefferson on 08-06-2796Upyedsleykf Ql (Bld) ModerateLicking Memorial HospitalLeukocytes [#/volume] corrected for nucleated erythrocytes in Blood by Automated counOrdered By: Julieta Jefferson on 90-33-0644QKC corrected for nucl RBC Auto (Bld) [#/Vol]4.6 10*3/uL3.8-11.6 [facility] HospitalLymphocytes Auto (Bld) [#/Vol]Ordered By: Julieta Jefferson on 26-71-3180Psgdpdebooj (Bld) [#/Vol]2.0 10*3/uL1.00-4.8[facility] HospitalLymphocytes/100 WBC Auto (Bld)Ordered By: Julieta Jefferson on 96-49-5932Ucvwniungzl/100 WBC (Bld)44.2 %.[facility] HospitalMCH Auto (RBC) [Entitic mass]Ordered By: Julieta Jefferson on 87-46-3748DFT (RBC) [Entitic mass]19.7 pg24.7-34.3FGalion HospitalMCHC Auto (RBC) [Mass/Vol]Ordered By: Julieta Jefferson on 71-64-7249ANXV (RBC) [Mass/Vol]30.2 g/dL 32.0-35.0[facility] HospitalMCV Auto (RBC) [Entitic vol]Ordered By: Julieta Jefferson on 40-43-2015OOT (RBC) [Entitic vol]65.3 kY85-515FyaizzhhiLicking Memorial HospitalMicrocytes LM Ql (Bld)Ordered By: Julieta Jefferson on 04-49-9775Qdxdzywdtn Ql (Bld)MarkedLicking Memorial HospitalMonocytes Auto (Bld) [#/Vol]Ordered By: Julieta Jefferson on 78-71-6199Hysrqsfxn (Bld) [#/Vol] 0.4 10*3/uL0.0-0.8[facility] HospitalMonocytes/100 WBC Auto (Bld) Ordered By: Julieta Jefferson on 32-34-6826Zadnfmktp/100 WBC (Bld)8.9 %.[facility] HospitalNeutrophils Auto (Bld) [#/Vol]Ordered By: Julieta Jefferson on 55-90-1698Wmhxewjphrx (Bld) [#/Vol]1.8 10*3/uL1.8-7.7FGalion HospitalNeutrophils/100 WBC Auto (Bld)Ordered By: Julieta Jefferson on 06-09-2022 Neutrophils/100 WBC (Bld)38.7 %.[facility] HospitalNo Panel InformationOrdered By: Julieta Jefferson on 92-65-0729Iwjtsqjrx GFR () > 60 mL/MinLicking Memorial HospitalComment on above:GFR estimated reference range: According to KDOQI guidelines, <60 ml/min/1.73m2 is sufficient todiagnose a patient with chronic kidney disease.Pharmacy Creatinine Clearance (ChemN/[facility] HospitalNucleated erythrocytes [Presence] in Blood by Automated countOrdered By: Julieta Jefferson on 00-25-5058Gstrytfow RBC Auto Ql (Bld)0.1 /100{WBC}0-0.5FGalion HospitalPlatelet adequacy [Presence] in Blood by Light microscopyOrdered By: Julieta Jefferson on 06-09-2022 Platelets LM Ql (Bld)NormalLakeHealth TriPoint Medical CenterPlatelet mean volume Auto (Bld) [Entitic vol]Ordered By: Julieta Jefferson on 59-06-5897Lhfyboqf mean volume (Bld) [Entitic vol]8.2 fL6.3-10.7FGalion Hospital Platelet morphology finding [Identifier] in BloodOrdered By: Julieta Jefferson on 84-44-5239Livyoajp morphology finding Nom (Bld)NormalNoDayton VA Medical CenterPlatelets Auto (Bld) [#/Vol]Ordered By: Julieta Jefferson on 06-09-2022 Platelets (Bld) [#/Vol]200 10*3/tG047-567DrxfmmhgmLicking Memorial Hospital Poikilocytosis [Presence] in Blood by Light microscopyOrdered By: Julieta Jefferson on 96-35-3055Ajxmifnplquxym LM Ql (Bld)[facility] Polychromasia [Presence] in Blood by Light microscopyOrdered By: Julieta Jefferson on 35-54-0052Tbujnrgmxxrvl LM Ql (Bld)ModerateLicking Memorial Hospital Protein [Mass/volume] in Serum or PlasmaOrdered By: Julieta Jefferson on 06-09-2022 Protein [Mass/Vol]6.4 g/dL6.1-7.9[facility] HospitalRB Auto (Bld) [#/Vol]Ordered By: Julieta Jefferson on 41-32-6806BLB (Bld) [#/Vol]3.97 10*6/uL 3.60-5.00[facility] HospitalRB morphologyOrdered By: Julieta Jefferson on 37-95-5294PAD morphology finding Nom (Bld)N/AFDoctors Hospitalchistocytes [Presence] in Blood by Light microscopyOrdered By: Julieta Jefferson on 95-60-1675Zcnynytbqeep LM Ql (Bld)[facility] Hospitalerum or plasma alanine aminotransferase measurement without P-5'-P (enzymatic activiOrdered By: Julieta Jefferson on 77-36-4844BIU No additional P-5'-P [Catalytic activity/Vol]14 U/O47-71FigpdmeptProtestant Hospitalerum or plasma albumin/globulin mass ratioOrdered By: Julieta Jefferson on 06-09-2022 Albumin/Globulin [Mass ratio]1.8 {ratio}Protestant Hospitalerum or plasma anion gap determinationOrdered By: Julieta Jefferson on 17-81-1678Lzwak gap [Moles/Vol]11.5 mmol/L6.0-15.0Protestant Hospitalerum or plasma calcitriol measurement (mass/volume)Ordered By: Julieta Jefferson on ,25- dihydroxyvitamin D3 [Mass/Vol]60.5 pg/mL24.8-81.5FGalion HospitalComment on above:Performed at: - Lab[address] [id number] Director: Jon Horton MD, Phone: [phone] or plasma chloride measurement (moles/volume)Ordered By: Julieta Jefferson on 44-95-1939Pktyxxvi [Moles/Vol]106 mmol/T24-060PbdueqtjoLicking Memorial Hospital Serum or plasma glucose measurement (mass/volume)Ordered By: Julieta Jefferson on 63-04-2610Jtpeiys [Mass/Vol]78 mg/pA01-659MidiisdvmLicking Memorial Hospital Comment on above:ADA recommended reference rangeRandom Glucose Reference Range is dependent on time and content of last meal. Glucose of more than 200 mg/dL in a nonstressed, ambulatory subject supports the diagnosisof Diabetes Mellitus. Serum or plasma high density lipoprotein (HDL) cholesterol measurementOrdered By: Julieta Jefferson on 11-08-8273Omdmckpakob in HDL [Mass/Vol]56 mg/dY99-81CpvuoloksLicking Memorial HospitalComment on above:HDL CHOL ATP-III CLASSIFICATION Cardiovascular RiskHDL > or equal to 60 mg/dL LOWHDL < 40 mg/dL HIGHSerum or plasma potassium measurement (moles/volume)Ordered By: Julieta Jefferson on 06-09-2022 Potassium [Moles/Vol]3.8 mmol/L3.5-5.1FDoctors Hospitalerum or plasma sodium measurement (moles/volume)Ordered By: Julieta Jefferson on 06-09-2022 Sodium [Moles/Vol]137 mmol/Q052-742UlazaqkpxProtestant Hospitalerum or plasma total bilirubin measurement (mass/volume)Ordered By: Julieta Jefferson on 69-26-1179Tkjfldiyu [Mass/Vol]0.3 mg/dL0.3-1.2FGalion Hospital Serum or plasma total cholesterol/high density lipoprotein (HDL) cholesterol mass ratOrdered By: Julieta Jefferson on 25-03-5777Pmmitaovpkv.total/Cholesterol in HDL [Mass ratio]2.4 {ratio}<5.0[facility] DL <= 0.005 mIU/L QnOrdered By: Julieta Jefferson on 76-40-8318EMA Qn4.10 m[IU]/L0.45-5.33 [facility] HospitalTeardrop cell detectionOrdered By: Julieta Jefferson on 01-15-1918Juzzyhfqju LM Ql (Bld)SlightLicking Memorial Hospital Triglyceride [Mass/volume] in Serum or PlasmaOrdered By: Julieta Jefferson on 19-72-5187Uqnqesalnsww [Mass/Vol]45 mg/kI62-940PhyhqazqpLicking Memorial Hospital Comment on above:TRIG ATP III CLASSIFICATIONTRIG less than 150 mg/dL NormalTRIG 150-199 mg/dL Borderline highTRIG 200-500 mg/dL High TRIG greater than 500 mg/dL Very highStandard traceable to the Center for Disease Conrtrol and Prevention (CDC) test method.Urea nitrogen [Mass/volume] in Serum or PlasmaOrdered By: Julieta Jefferson on 09-18-6336Pbuj nitrogen [Mass/Vol]6 mg/dL9-[facility] HospitalWBC Auto (Bld) [#/Vol]Ordered By: Julieta Li on 90-65-0738IWE (Bld) [#/Vol]4.6 10*3/uL3.8-11.6FGalion HospitalUrine 10 SGon 09-16-4922Funtlcb DL <= 20 mg/L (U) [Mass/Vol]NegativeNortRolePoint Other pH (U)7.0 [pH][employer] Other urine 10 SGNegativeGolden Star Resources Other Urine 10 SG1.020NoGolden Star Resources Other urine 10 SGlargeNoGolden Star Resources Other Urine Cultureon 67-67-2546Lftwvdgk identified Cx Nom (U)[employer] Other urine culture routineOrdered By: Amanda Ford on 43-87-0537Rgrimlwp identified Cx Nom (U)2 DaysLicking Memorial HospitalActivated partial thromboplastin time (aPTT) in platelet poor plasma by coagulation aOrdered By: Phu Hdz on 79-96-2684kVQY Coag (PPP) [Time] 30.4 s25.1-36.5FGalion HospitalAutomated erythrocytes count in urine sediment (number/area)Ordered By: Jean Jett on 39-91-8321RGH Auto (Urine sed) [#/Area]Innumerable [HPF]0-4FGalion Hospital Automated leukocytes count in urine sediment (number/area)Ordered By: Jean Jett on 95-71-1793AMO Auto (Urine sed) [#/Area]3-4 [HPF]0-4FGalion HospitalAutomated urine sediment calcium oxalate crystal count by microscopy (number/high powOrdered By: Jean Jett on 25-17-8168Jawzfnd oxalate crystals LM.HPF (Urine sed) [#/Area]1+ [HPF][facility] Basophils Auto (Bld) [#/Vol]Ordered By: Jean Jett on 24-50-5561Kmltjfdpf (Bld) [#/Vol]0.0 10*3/uL0.0-0.2FGalion HospitalBasophils/100 WBC Auto (Bld)Ordered By: Jean Jett on 61-59-6433Spfppqlwx/100 WBC (Bld)0.5 % .[facility] HospitalBilirubin Test strip Ql (U)Ordered By: Jean Jett on 75-73-5788Icmcdwobp Ql (U)1+NegativeLicking Memorial Hospital Casts typing in urine sediment by light microscopyOrdered By: Jean Jett on 65-23-7644Khjsc LM Nom (Urine sed)None seen [LPF]None SeenLicking Memorial HospitalColor Auto (U)Ordered By: Jean Jett on 08-98-9221Mkhzh (U)Red YellowLicking Memorial HospitalCreatinine and Glomerular filtration rate.predicted panel (S/P/Bld)Ordered By: Jean Jett on 15-23-3470Zrbdpmkjyh [Mass/Vol]0.68 mg/dL0.44-1.03[facility] HospitalEosinophils Auto (Bld) [#/Vol]Ordered By: Jean Jett on 57-73-4812Ejejhyosojr (Bld) [#/Vol]0.2 10*3/uL0.0-0.45[facility] HospitalEosinophils/100 WBC Auto (Bld) Ordered By: Jean Jett on 11-78-9587Ibxfkclxgjg/100 WBC (Bld)2.1 %.[facility] HospitalErythrocyte distribution width Auto (RBC) [Ratio]Ordered By: Jean Jett on 68-83-5474Enqobyudsrn distribution width (RBC) [Ratio]14.3 % 11.9-15.3FGalion HospitalEstimated glomerular filtration rate (GFR) non- AmericanOrdered By: Jean Jett on 10-56-2005LFF/1.73 sq M.predicted among non-blacks MDRD (S/P/Bld) [Vol rate/Area]> 60 mL/MinLicking Memorial HospitalHCG ( test) IA.rapid Ql (U)Ordered By: Jean Jett on 35-92-7223OSZ ( test) Ql (U)NegativeLicking Memorial HospitalHematocrit Auto (Bld) [Volume fraction]Ordered By: Jean Jett on 65-31-3222Lprbspbofu (Bld) [Volume fraction]29.4 %34.0-46.4FGalion HospitalHemoglobin [Mass/volume] in BloodOrdered By: Jean Jett on 71-58-2854Tgzytpwlkt (Bld) [Mass/Vol]9.9 g/dL11.8-15.4FGalion HospitalKetones Auto test strip (U) [Mass/Vol]Ordered By: Jean Jett on 50-91-0587Gufwqlr (U) [Mass/Vol]NegativeNegativeLicking Memorial HospitalLaboratory - CoagulationOrdered By: Phu Hdz on 49-50-7288VB Coag (PPP) [Time]12.4 s9.0-12.9[facility] HospitalLaboratory - UrinalysisOrdered By: Jean Jett on 16-15-0533Ehudjxk casts LM Ql (Urine sed) None seen [LPF]0-8[facility] HospitalLeukocytes [#/volume] corrected for nucleated erythrocytes in Blood by Automated counOrdered By: Jean Jett on 15-95-4063SIH corrected for nucl RBC Auto (Bld) [#/Vol]8.5 10*3/uL3.8-11.6FGalion HospitalLymphocytes Auto (Bld) [#/Vol] Ordered By: Jean Jett on 18-33-1288Lzbmzehwmcv (Bld) [#/Vol]2.1 10*3/uL 1.00-4.8[facility] HospitalLymphocytes/100 WBC Auto (Bld)Ordered By: Jean Jett on 96-82-4703Kpaxuzaelhy/100 WBC (Bld)25.2 %.[facility] WestH Auto (RBC) [Entitic mass]Ordered By: Jean Jett on 12-52-5209SNE (RBC) [Entitic mass]28.8 pg24.7-34.3FGalion HospitalMCHC Auto (RBC) [Mass/Vol]Ordered By: Jean Jett on 09-38-6045RUFO (RBC) [Mass/Vol]33.6 g/dL32.0-35.0[facility] HospitalMCV Auto (RBC) [Entitic vol]Ordered By: Jean Jett on 96-29-5239EYA (RBC) [Entitic vol]85.7 qB70-135WtaqvcznvLicking Memorial HospitalMonocyte distribution width [Entitic volume] in Blood by AutomatedOrdered By: Jean Jett on 17-66-3672Gqaufdck distribution width Auto (Bld) [Entitic vol]14.20 %0.00-20.00[facility] HospitalMonocytes Auto (Bld) [#/Vol]Ordered By: Jean Jett on 04-10-2022 Monocytes (Bld) [#/Vol]0.5 10*3/uL0.0-0.8[facility] Monocytes/100 WBC Auto (Bld)Ordered By: Jean Jett on 14-86-8051Vyyduqpzi/100 WBC (Bld)5.7 %.[facility] HospitalNeutrophils Auto (Bld) [#/Vol] Ordered By: Jean Jett on 94-65-6218Mrksovlovop (Bld) [#/Vol]5.6 10*3/uL 1.8-7.7FGalion HospitalNeutrophils/100 WBC Auto (Bld)Ordered By: Jean Jett on 87-74-7860Pgginxhyezm/100 WBC (Bld)66.5 %.[facility] HospitalNitrite Test strip Ql (U)Ordered By: Jean Jett on 04-10-2022 Nitrite Ql (U)PositiveNegativeLicking Memorial HospitalNo Panel InformationOrdered By: Jean Jett on 48-48-3301Cykygkwhf GFR ()> 60 mL/MinLicking Memorial HospitalComment on above:GFR estimated reference range: According to KDOQI guidelines, <60 ml/min/1.73m2 is sufficient todiagnose a patient with chronic kidney disease.Pharmacy Creatinine Clearance (Zsql705.39[facility] HospitalNucleated erythrocytes [Presence] in Blood by Automated countOrdered By: Jean Jett on 04-10-2022 Nucleated RBC Auto Ql (Bld)0.0 /100{WBC}0-0.5FGalion Hospital Platelet mean volume Auto (Bld) [Entitic vol]Ordered By: Jean Jett on 88-76-4096Vhpvggoa mean volume (Bld) [Entitic vol]6.9 fL6.3-10.7FGalion HospitalPlatelet poor plasma international normalized ratio (INR) by coagulation assay (relatOrdered By: Phu Hdz on 54-30-2588SBK Coag (PPP) [Relative time]1.1 {INR}[facility] HospitalComment on above: INR Therapeutic Range A) [...] Auto (Bld) [#/Vol]Ordered By: Jean Jett on 22-62-1572Mzesrgizj (Bld) [#/Vol]263 10*3/qX865-648PdophkqnrLicking Memorial HospitalProtein Auto test strip (U) [Mass/Vol]Ordered By: Jean Jett on 46-09-1967Cibpzyo (U) [Mass/Vol]100 mg/dLNegativeLicking Memorial HospitalRBC Auto (Bld) [#/Vol]Ordered By: Jean Jett on 28-07-8468VXN (Bld) [#/Vol]3.43 10*6/uL 3.60-5.00Protestant Hospitalerum or plasma anion gap determinationOrdered By: Jean Jett on 41-67-6092Wotta gap [Moles/Vol]8.5 mmol/L6.0-15.0[facility] Hospitalerum or plasma calcium measurement (mass/volume)Ordered By: Jean Jett on 75-34-5551Jjunymb [Mass/Vol]8.6 mg/dL8.2-10.2FDoctors Hospitalerum or plasma chloride measurement (moles/volume)Ordered By: Jean Jett on 04-10-2022 Chloride [Moles/Vol]106 mmol/P65-697TmzkilwbzProtestant Hospitalerum or plasma glucose measurement (mass/volume)Ordered By: Jean Jett on 04-10-2022 Glucose [Mass/Vol]99 mg/bK17-408TsbdbkwciLicking Memorial HospitalComment on above:ADA recommended reference rangeRandom Glucose Reference Range is dependent on time and content of last meal. Glucose of more than 200 mg/dL in a nonstressed, ambulatory subject supports the diagnosisof Diabetes Mellitus.Serum or plasma potassium measurement (moles/volume)Ordered By: Jean Jett on 00-76-1264Pwnjidwon [Moles/Vol]3.6 mmol/L3.5-5.1FDoctors Hospitalerum or plasma sodium measurement (moles/volume)Ordered By: Jean Jett on 15-65-4924Gjepmr [Moles/Vol]138 mmol/V125-217RydjaxwbfProtestant Hospitalerum or plasma total carbon dioxide measurement (moles/volume)Ordered By: Jean Jett on 21-92-0135BP9 [Moles/Vol]27.1 mmol/L22.0-30.0[facility] Hospitalerum or plasma urea nitrogen measurement (mass/volume)Ordered By: Jean Jett on 26-38-2911Oehl nitrogen [Mass/Vol]5 mg/dL9-23Protestant Hospitalpecific gravity Auto test strip (U) [Rel density]Ordered By: Jean Jett on 41-75-1135Ipxtkome gravity (U) [Rel density]1.0331.001-1.030 Protestant Hospitalquamous epithelial cells detection in urine sediment by light microscopyOrdered By: Jean Jett on 05-76-0987Jaartuhktl cells.squamous LM Ql (Urine sed)3-4 [HPF]0-2FGalion Hospital Urine bacteria detection by automated methodOrdered By: Jean Jett on 06-71-8954Lnwcvbtn Auto Ql (U)None seenNone SeenLicking Memorial HospitalUrine clarity by refractometry automatedOrdered By: Jean Jett on 26-75-6060Ryloaoh Refractometry automated (U)TurbidClearFGalion HospitalUrine culture routineOrdered By: Jean Jett on 04-10-2022 Bacteria identified Cx Nom (U)2 DaysLicking Memorial HospitalUrine glucose measurement by automated test strip (mass/volume)Ordered By: Jean Jett on 27-21-1337Ncljzfs Auto test strip (U) [Mass/Vol]Normal mg/dLAvita Health System Bucyrus HospitalUrine hemoglobin detection by automated test stripOrdered By: Jean Jett on 05-80-5848Jwarrtbewo Auto test strip Ql (U)3+ NegativeLicking Memorial HospitalUrine leukocyte esterase detection by automated test stripOrdered By: Jean Jett on 05-42-1643Zjmsbmubb esterase Auto test strip Ql (U)2+NegativeLicking Memorial HospitalUrine sediment crystal identification by light microscopyOrdered By: Jean Jett on 04-10-2022 Crystals LM Nom (Urine sed)None seen [HPF][facility] Urobilinogen Auto test strip (U) [Mass/Vol]Ordered By: Jean Jett on 67-73-7382Wwtblfigpupx (U) [Mass/Vol]Normal mg/dLLakeHealth TriPoint Medical CenterWBC Auto (Bld) [#/Vol]Ordered By: Jean Jett on 65-30-4616GZJ (Bld) [#/Vol]8.5 10*3/uL3.8-11.6FGalion HospitalpH Auto test strip (U)Ordered By: Jean Jett on 78-92-0506oD (U)5.5 [pH]5.0-9.0[facility] HospitalBasophils Auto (Bld) [#/Vol]Ordered By: PROVIDER TEMP on 05-41-2605Hyxrgagfg (Bld) [#/Vol]0.0 10*3/uL0.0-0.2FGalion HospitalBasophils/100 WBC Auto (Bld)Ordered By: PROVIDER TEMP on 04-08-2022 Basophils/100 WBC (Bld)0.4 %.[facility] HospitalEosinophils Auto (Bld) [#/Vol]Ordered By: PROVIDER TEMP on 96-45-1840Djhkxjjgrib (Bld) [#/Vol]0.4 10*3/uL0.0-0.45[facility] HospitalEosinophils/100 WBC Auto (Bld) Ordered By: PROVIDER TEMP on 72-37-2174Jbvhicrskcb/100 WBC (Bld)5.5 %.[facility] HospitalErythrocyte distribution width Auto (RBC) [Ratio]Ordered By: PROVIDER TEMP on 93-92-7604Nskmhmmhwlt distribution width (RBC) [Ratio]14.1 %11.9-15.3FGalion HospitalHematocrit Auto (Bld) [Volume fraction]Ordered By: PROVIDER TEMP on 03-25-4329Okqjuhfcov (Bld) [Volume fraction]33.9 %34.0-46.4FGalion HospitalHemoglobin [Mass/volume] in BloodOrdered By: PROVIDER TEMP on 71-30-8166Wbxrkksokj (Bld) [Mass/Vol]11.4 g/dL11.8-15.4FGalion HospitalLeukocytes [#/volume] corrected for nucleated erythrocytes in Blood by Automated coun Ordered By: PROVIDER TEMP on 74-27-2552ZQF corrected for nucl RBC Auto (Bld) [#/Vol]8.1 10*3/uL3.8-11.6FGalion HospitalLymphocytes Auto (Bld) [#/Vol]Ordered By: PROVIDER TEMP on 58-00-7671Cuteddgosbg (Bld) [#/Vol]2.3 10*3/uL1.00-4.8[facility] HospitalLymphocytes/100 WBC Auto (Bld) Ordered By: PROVIDER TEMP on 21-70-2460Iyxwgwuhamz/100 WBC (Bld)28.1 %.[facility] HospitalMCH Auto (RBC) [Entitic mass]Ordered By: PROVIDER TEMP on 35-30-3287MEK (RBC) [Entitic mass]29.0 pg24.7-34.3FGalion HospitalMCHC Auto (RBC) [Mass/Vol]Ordered By: PROVIDER TEMP on 53-61-1520WKCW (RBC) [Mass/Vol]33.7 g/dL32.0-35.0[facility] HospitalMCV Auto (RBC) [Entitic vol]Ordered By: PROVIDER TEMP on 82-13-9256OAN (RBC) [Entitic vol]86.0 dK06-340HamouijygLicking Memorial HospitalMonocyte distribution width [Entitic volume] in Blood by AutomatedOrdered By: PROVIDER TEMP on 04-08-2022 Monocyte distribution width Auto (Bld) [Entitic vol]13.83 %0.00-20.00[facility] HospitalMonocytes Auto (Bld) [#/Vol]Ordered By: PROVIDER TEMP on 97-17-7897Fyfuumvrh (Bld) [#/Vol]0.5 10*3/uL0.0-0.8[facility] HospitalMonocytes/100 WBC Auto (Bld)Ordered By: PROVIDER TEMP on 04-08-2022 Monocytes/100 WBC (Bld)6.7 %.[facility] HospitalNeutrophils Auto (Bld) [#/Vol]Ordered By: PROVIDER TEMP on 94-13-8734Odfshbwonsm (Bld) [#/Vol]4.8 10*3/uL1.8-7.7FGalion HospitalNeutrophils/100 WBC Auto (Bld) Ordered By: PROVIDER TEMP on 37-21-3204Mxooxzepbqv/100 WBC (Bld)59.3 %.[facility] HospitalNucleated erythrocytes [Presence] in Blood by Automated countOrdered By: PROVIDER TEMP on 39-31-9586Ywvtvyspo RBC Auto Ql (Bld)0.2 /100{WBC}0-0.5FGalion HospitalPlatelet mean volume Auto (Bld) [Entitic vol]Ordered By: PROVIDER TEMP on 97-31-5000Lkcnehqj mean volume (Bld) [Entitic vol]7.0 fL6.3-10.7FGalion HospitalPlatelets Auto (Bld) [#/Vol]Ordered By: PROVIDER TEMP on 72-42-9544Zpmkjkmfq (Bld) [#/Vol]199 10*3/uL 150-450L[facility] HospitalRBC Auto (Bld) [#/Vol]Ordered By: PROVIDER TEMP on 71-64-7079VAL (Bld) [#/Vol]3.94 10*6/uL3.60-5.00[facility] HospitalWBC Auto (Bld) [#/Vol]Ordered By: PROVIDER TEMP on 50-08-2317UTQ (Bld) [#/Vol]8.1 10*3/uL3.8-11.6FGalion Hospital XR shoulder RT min 2V*on 04-23-1003ZB shoulder RT min 2V*[facility] [employer] Other XR shoulder RT min 2V*[facility] [employer] Other XR shoulder RT min 2V*[address] [place] [address] [employer] Other XR shoulder RT min 2V*[place] [address]Jqhzk [employer] Other XR shoulder RT min 2V*[facility] [employer] Other XR shoulder RT min 2V*[facility] [employer] Other XR shoulder RT min 2V*Patient: Jaz Sanders MR#: [id number] [employer] Other XR shoulder RT min 2V*[address] [employer] Other XR shoulder RT min 2V*: 1995 Acct:[id number] [place] [employer] Other XR shoulder RT min 2V*Age/Sex: 27 / F ADM Date: 03/23/22[place] [employer] Other XR shoulder RT min 2V*[facility] [employer] Other XR shoulder RT min 2V*Attending Dr: Amanda Ford APRN, [facility] [employer] Other XR shoulder RT min 2V*Copies to: Amanda Ford APRN, [facility] [employer] Other XR shoulder RT min 2V*Ordering Provider: Amanda Ford APRN, [facility] [employer] Other XR shoulder RT min 2V*Date of Service: 03/23/22[place] [employer] Other XR shoulder RT min 2V* XR/XR shoulder RT min 2V*: Other chronic pain;Pain in right shoulderFort Bridger [employer] Other XR shoulder RT min 2V*RIGHT SHOULDER - - 3 viewsFort Bridger [employer] Other XR shoulder RT min 2V*CLINICAL HISTORY: Pain lateral to right shoulder for 6 months.[employer] Other XR shoulder RT min 2V*COMPARISON: [facility] [employer] Other XR shoulder RT min 2V*FINDINGS:[employer] Other XR shoulder RT min 2V*Minimal degenerative changes of the right AC joint. Glenohumeral joint is grossly unremarkable. [facility] [employer] Other XR shoulder RT min 2V*acute bony process.[employer] Other XR shoulder RT min 2V* XR/XR shoulder RT min 2V*[employer] Other XR shoulder RT min 2V*IMPRESSION:[employer] Other XR shoulder RT min 2V*MINIMAL DEGENERATIVE CHANGES. NO ACUTE BONY PROCESS.[employer] Other XR shoulder RT min 2V*Impression dictated by: Sravan Dickinson Jr., D.O.03/23/2022 4:06 [facility] [employer] Other xr shoulder RT min 2V*Dictation Location: [address] [employer] Other xr shoulder RT min 2V*Transcribed By: [facility] 03/23/[address] [place] [address] [employer] Other xr shoulder RT min 2V*Dictated By: Sravan Dickinson Jr, DO 03/23/[address] [place] [address] [employer] Other xr shoulder RT min 2V*Signed By:[employer] Other xr shoulder RT min 2V*03/23/[address] [place] [address] [employer] Other Coding Summary.on 64-34-8686Bbmlnl Summary. CD:[id number]+PGhlYWQ+SA9GEBKaL42umTAfeT7DX2iFZE9DYLPQSSTLIY2QKB6me II9CBaoW6CxmxHi [file] cHNl (more content not included)...[facility] HospitalHeart and Vascular Office/Clinic Noteon 73-44-5998Tbzmn and Vascular Office/Clinic Note Chief Complaint Testing [...] after patient or guardian consented to allow [employer] to record this visit. ANAMARIA it technical support specialist and provider reviewed before signing. ANAMARIA: Rissa Airas. Follow-up No qualifying data available Problem List/Past [...] Family History Bipolar: Sister. Depression: Mother and Grandparent.[facility] HospitalComment on above:Result Comment: Electronically Signed By: Jay DAVEY, Samir Rivera\.br\Date and Time Signed: 09/02/21 09:25 EDT\.br\Electronically Co-Signed By: Rissa Arias\.br\Date and Time Co-Signed: 09/01/21 17:11 EDTCoding Summary.on 13-78-5525Cymfnt Summary. CD:[id number]+PGhlYWQ+KG0PQPCbC02pzGOmfT0TM2bTCH4ESRXABYANIM6UZT6my JY1RCpjZ1NtyiVq [file] cHNl (more content not included)...NormalSelect Medical Specialty Hospital - Cleveland-FairhillConsent for Treatmenton 89-79-2887Ebagdfq for Treatment [id number]#1.00CD:127NormBerger HospitalProgress Note-Physicianon 09-99-3100Bsmlaggc Note-Physician [id number]#1.00CD:127NormBerger HospitalHolter Monitoron 54-49-1681Jxjlkf Jxjrzay54-SYCO HOLTER MONITOR ORDERING PHYSICIAN: Samir Christofferson, M.D. INTERPRETING PHYSICIAN: Mariam Salazar M.D. TEST [...] turned in. READ BY: Mariam Salazar M.D. Dictated: 08/26/2021 [id number] Transcribed: 08/27/2021 cc:Samir Thompson M.D.[facility] HospitalComment on above: Result Comment: Electronically Signed By: Martin DAVEY, Mariam Galan\.br\Date and Time Signed: 08/27/21 10:21 EDTHolter Monitor [id number]#1.00CD:127NoKettering Health TroyConsent for Treatmenton 46-58-4396Zvbxjxj for Treatment [id number]#1.00CD:127NoKettering Health TroyCoding Summary.on 35-98-3636Apsanw Summary. CD:[id number]+PGhlYWQ+SY4WGXUiF26sxRKwlN5MQ0dQNH9KYXWQUNESCU1NDU1ow KD9OJbmO9HhoaBt [file] cHNl (more content not included)...NormalMercy Health St. Vincent Medical Centertre EKG Tracingson 04-28-5860Tmkpba EKG Tracings [id number]#1.00CD:127[facility] HospitalConsent for Treatmenton 76-13-0419Fquazlk for Treatment [id number]#1.00CD:127[facility] HospitalCoding Summary.on 83-24-4362Gpmnyi Summary. CD:[id number]+PGhlYWQ+XV4GNLUjY03miZJvoN8DW7lRBQ8CNWTHTXBQJF7QEI2hq QI8PBqoG6WiahGc [file] cHNl (more content not included)...[facility] HospitalProgress Note-Physicianon 95-62-6461Emjuamdu Note-Physician [id number]#1.00CD:127NormBerger HospitalHeart and Vascular Office/Clinic Noteon 09-73-1947Wkxac and Vascular Office/Clinic NoteChief Complaint Bradycardia History [...] rate increases with exercise. She presented to [facility] 2 weeks ago for suspected [...] after patient or guardian consented to allow [employer] to record this visit. ANAMARIA it technical support specialist and provider reviewed before signing. [...] Tobacco Use:. Never Sm[place] (more content not included)...[facility] HospitalComment on above:Result Comment: Electronically Signed By: Samir Thompson MD\.br\Date and Time Signed: 07/27/21 10:44 EDT\.br\Electronically Co-Signed By: Rissa Arias\.br\Date and Time Co-Signed: 07/24/21 16:24 EDTConsent for Treatmenton 58-28-1508Aftekay for [id number]#1.00CD:[address] [place], [place] [address]Referrals Officeon 96-84-6590Xndgxknqn Office [id number]#1.00CD:127[facility] HospitalBASIC METABOLIC PANELon 78-60-6505Lyikp gap [Moles/Vol]8 mmol/LLow9 - 17 mmol/LMohiohealth grant medical centery Health- [place], KYBun/Cre RatioNOT REPORTEDMer Health- [place], KYCalcium [Mass/Vol]9.2 mg/dL8.6 - 10.4 mg/dLMercy Health- [place], KYChloride [Moles/Vol]105 mmol/L98 - 107 mmol/LMercy Health- [place], KYCO2 [Moles/Vol]26 mmol/L20 - 31 mmol/L [facility]- [place], KYCreatinine [Mass/Vol]0.67 mg/dL0.5 - 0.9 mg/dLMercy Health- [place], KYGFR >60>60 mL/minMercy Health- [place], KYGFR Non->60>60 mL/minMercy Health- [place], KYGFR/1.73 sq M predicted among non- blacks MDRD (S/P/Bld) [Vol rate/Area]NOT REPORTEDMercy Health- [place], KYGFR/1.73 sq M predicted among non-blacks MDRD (S/P/Bld) [Vol rate/Area][facility] [place], [place] Comment on above:Average GFR for 20-29 years old: 116 mL/min/1.73sq m Chronic Kidney Disease: <60 mL/min/1.73sq m Kidney failure: <15 mL/min/1.73sq m eGFR calculated using average adult body mass. Additional eGFR calculator available at: http://www.[employer]Fuel/multiple_crcl_2012.htm Glucose [Mass/Vol]99 mg/dL70 - 99 mg/dLLima Memorial Hospital, KYInterpretation and review of laboratory resultsAbnormalLima Memorial Hospital, KYPotassium [Moles/Vol]4.5 mmol/L3.7 - 5.3 mmol/LMAdena Pike Medical Center, KYSodium [Moles/Vol]139 mmol/L135 - 144 mmol/[facility], KYUrea nitrogen [Mass/Vol]5 mg/dLLow6 - 20 mg/dLLima Memorial Hospital, KYBasic Metabolic Profon 05-08-2020(cont.)German HospitalComment on above:Result Comment: Average GFR for 20-29 years old: 116 mL/min/1.73sq m Chronic Kidney Disease: <60 mL/min/1.73sq m Kidney failure: <15 mL/min/1.73sq m eGFR calculated using average adult body mass. Additional eGFR calculator available at: http://www.SkyFuel/multiple_crcl_2012.htmPerformed By: #### CBC, PT, PTT, BMP #### [employer] [address] [place] [address] [phone] Ham Boner: Casey Marques MD #### RICKYT #### [facility] [address] [place] [address] Ham Boner: Dontae Ward gap [Moles/Vol]8 mmol/LLow9-17[facility] OhioComment on above:Performed By: #### CBC, PT, PTT, BMP #### [facility] [address] [place] [address] Ham Boner: Casey Marques MD #### ANICOT #### [facility] [address] [place] [address] Ham Boner: XIN Wardalcium [Mass/Vol]9.2 mg/dLNormal8.6-10.4[facility] OhioComment on above:Performed By: #### CBC, PT, PTT, BMP #### [facility] [address] [place] [address] [phone] Ham Boner: Casey Marques MD #### ANICOT #### [facility] [address] [place] [address] [phone] Ham Boner: XIN Wardhloride [Moles/Vol]105 mmol/WNlgawx48-809CtttlKing'S Daughters Medical Center OhioComment on above:Performed By: #### CBC, PT, PTT, BMP #### [address] [phone] Ham Boner: Casey Marques MD #### ANICOT #### [facility] [address] [place] [address] [phone] Ham Boner: XIN WardO2 [Moles/Vol]26 mmol/MJjnqpk32-46HznqnKing'S Daughters Medical Center OhioComment on above:Performed By: #### CBC, PT, PTT, BMP #### [address] [phone] Ham Boner: Casey Marques MD #### ANICOT #### [facility] [address] [place] [address] Ham Boner: XIN Wardreatinine [Mass/Vol]0.67 mg/dLNormal0.50-0.90 [facility] OhioComment on above:Performed By: #### CBC, PT, PTT, BMP #### [facility] [address] [place] [address] [phone] Ham Boner: Casey Marques MD #### ANICOT #### [facility] [address] [place] [address] Ham Boner: Adolph Diaz MDGFR, Amer>60Normal>60[facility] Medical CenterComment on above:Performed By: #### CBC, PT, PTT, BMP #### [facility] [address] [place] [address] [phone] Ham Boner: Casey Marques MD #### ANICOT #### [facility] [address] [place], [place] [id number] Ham Boner: Adolph Diaz MDGFR,non Amer>60Normal>60[facility] Medical CenterComment on above:Performed By: #### CBC, PT, PTT, BMP #### [facility] [address] [place] [address] [phone] Ham Boner: Casey Marques MD #### ANICOT #### [facility] [address] [place] [address] Ham Boner: Adolph Diaz MDGlucose [Mass/Vol]99 mg/wSDtkzgl82-53Rwqac [facility] Medical CenterComment on above:Performed By: #### CBC, PT, PTT, BMP #### [facility] [address] [place] [address] [phone] Ham Boner: Casey Marques MD #### ANICOT #### [facility] [address] [place] [address] Ham Boner: Brianna Wardssium [Moles/Vol]4.5 mmol/LNormal3.7-5.3[facility] Medical CenterComment on above:Performed By: #### CBC, PT, PTT, BMP #### [facility] [address] [place] [address] [phone] Ham Boner: Casey Marques MD #### ANICOT #### [facility] [address] [place] [address] Ham Boner: Adolph Diaz, MDSodium [Moles/Vol]139 mmol/GHmimlh940-649MvphqKing'S Daughters Medical Center OhioComment on above:Performed By: #### CBC, PT, PTT, BMP #### [facility] [address] [place] [address] Ham Boner: Casey Marques MD #### ANICOT #### [facility] [address] [place], [place] [id number] Ham Boner: Adolph Diaz MDUrea nitrogen [Mass/Vol]5 mg/dLLow6-20[facility] OhioComment on above:Performed By: #### CBC, PT, PTT, BMP #### [facility] [address] [place] [phone] Ham Boner: Casey Marques MD #### ANICOT #### [facility] [address] [place], [place] [id number] Ham Boner: ANTONIETA Ward/CRE JiOT REPORTEDNormal9-20[facility] OhioComment on above:Performed By: #### CBC, PT, PTT, BMP #### [facility] [address] [place] [phone] Ham Boner: Casey Marques MD #### ANICOT #### [facility] [address] [place], [place] [id number] Ham Boner: JACINTO Wardtaging:NOT REPORTEDNormalKing'S Daughters Medical Center OhioComment on above:Performed By: #### CBC, PT, PTT, BMP #### [facility] [address] [place] [phone] Ham Boner: Casey Marques MD #### ANICOT #### [facility] [address] [place] [address] Ham Boner: Adolph Diaz [facility] WITH AUTO DIFFERENTIALon 58-35-3661Ptidengif (Bld) [#/Vol]0.06 10*3/[facility], KYBasophils/100 WBC (Bld)1 %0 - 2 % [facility], INDifferential TypeNOT REPORTEDLima Memorial Hospital, KYEosinophils (Bld) [#/Vol]0.35 10*3/[facility], KYEosinophils/100 WBC (Bld)3 %1 - 4 %[facility], INErythrocyte distribution width (RBC) [Ratio]14.7 %High11.8 - 14.4 %[facility], INHematocrit (Bld) [Volume fraction]38.4 %36.3 - 47.1 %[facility], INHemoglobin (Bld) [Mass/Vol]12.0 g/dL11.9 - 15.1 g/dLLima Memorial Hospital, INImmature granulocytes (Bld) [#/Vol]1 %Yorm[address] [place] [address], [place] Immature granulocytes (Bld) [#/Vol]0.06 10*3/[facility], [place] Interpretation and review of laboratory resultsAbnormSt. Charles Hospital, [place] Lymphocytes (Bld) [#/Vol]2.21 10*3/[facility], NORMALymphocytes/100 WBC (Bld)21 %Low24 - 43 %[facility], INMCH (RBC) [Entitic mass]26.5 pg25.2 - 33.5 pgLima Memorial Hospital, INMCHC (RBC) [Mass/Vol]31.3 g/dL28.4 - 34.8 g/dLL[facility], INMCV (RBC) [Entitic vol]85.0 fL82.6 - 102.9 fLLima Memorial Hospital, [place] Monocytes (Bld) [#/Vol]0.71 10*3/[facility], KYMonocytes/100 WBC (Bld)7 %3 - 12 %[facility], INPlatelet mean volume (Bld) [Entitic vol]8.6 fL8.1 - 13.5 fLLima Memorial Hospital, INPlatelets (Bld) [#/Vol]256 10*3/[facility], KYPlatelets (Bld) [#/Vol]NOT REPORTEDMercy Health [facility] (Bld) [#/Vol]4.52 10*6/uL3.95 - 5.11 m/[facility], [facility] morphology finding Nom (Bld) ANISOCYTOSIS PRESENTLima Memorial Hospital, INSegmented neutrophils/100 WBC (Bld)67 % High36 - 65 %[place], KYSegs Absolute7.30[facility], INWBC (Bld) [#/Vol]10.7 10*3/uLLima Memorial Hospital, INWBC (Bld) [#/Vol]0.0 10*3/uL0.0 per 100 WBCLima Memorial Hospital, [facility] MorphologyNOT REPORTEDMemorial Health System [facility] with Diffon 61-33-6696Ver. Basophil0.06 k/uLNormal0.00-0.20[facility] OhioComment on above:Performed By: #### CBC, PT, PTT, BMP #### [employer] [address] [place] [address] [phone] Ham Boner: Casey Marques MD #### ANALI #### [facility] [address] [place] [address] Ham Boner: Ashley Ward.Imm.Granulocyte0.06 k/uLNormal0.00-0.30[facility] OhioComment on above:Performed By: #### CBC, PT, PTT, BMP #### [employer] [address] [place] [address] Ham Boner: Casey Marques MD #### RICKYT #### [facility] [address] [place] [address] Ham Boner: Ashley Ward.Neutrophil (Seg)7.30 k/uLNormal1.50-8.10[facility] OhioComment on above:Performed By: #### CBC, PT, PTT, BMP #### [facility] [address] [place] [address] Ham Boner: Casey Marques MD #### ANICOT #### [facility] [address] [place], [place] [id number] Ham Boner: Adolph Diaz MDBasophils/100 WBC (Bld)1 %Normal0-2MSan Dimas Community HospitalComment on above:Performed By: #### CBC, PT, PTT, BMP #### [facility] [address] [place] [address] Ham Boner: Casey Marques MD #### ANICOT #### [address] [phone] Ham Boner: Adolph Diaz MDEosinophils (Bld) [#/Vol]0.35 10*3/uLNormal 0.00-0.44[facility] OhioComment on above:Performed By: #### CBC, PT, PTT, BMP #### [address] [address] Ham Boner: Casey Marques MD #### ANICOT #### [address] [phone] Ham Boner: Adolph Diaz MDEosinophils/100 WBC (Bld)3 %Normal1-4[facility] OhioComment on above:Performed By: #### CBC, PT, PTT, BMP #### [address] [address] Ham Boner: Casey Marques MD #### ANICOT #### [address] [phone] Ham Boner: Adolph Diaz MDErythrocyte distribution width (RBC) [Ratio]14.7 %High11.8-14.4[facility] OhioComment on above:Performed By: #### CBC, PT, PTT, BMP #### [facility] [address] [place] [address] Ham Boner: Casey Marques MD #### ANICOT #### [facility] [address] [place] [address] Ham Boner: Adolph Diaz MDHematocrit (Bld) [Volume fraction]38.4 %Normal 36.3-47.1MSan Dimas Community HospitalComment on above:Performed By: #### CBC, PT, PTT, BMP #### [facility] [address] [place] [address] Ham Boner: Casey Marques MD #### ANICOT #### [facility] [address] [place] [address] Ham Boner: Adolph Diaz MDHemoglobin (Bld) [Mass/Vol]12.0 g/dLNormal 11.9-15.1Mohiohealth grant medical centery Saddle[facility] Medical CenterComment on above:Performed By: #### CBC, PT, PTT, BMP #### [facility] [address] [place] [address] Ham Boner: Casey Marques MD #### ANICOT #### [facility] [address] [place], [place] [id number] Ham Boner: Adolph Diaz MDImmature granulocytes/100 WBC (Bld)1 %Kmdx3NklltCommunity Hospital of GardenaComment on above:Performed By: #### CBC, PT, PTT, BMP #### [facility] [address] [place] [address] Ham Boner: Casey Marques MD #### ANICOT #### [facility] [address] [place], [place] [id number] Ham Boner: Adolph Diaz MDLymphocytes (Bld) [#/Vol]2.21 10*3/uLNormal 1.10-3.70[facility] OhioComment on above:Performed By: #### CBC, PT, PTT, BMP #### [address] [address] Ham Boner: Casey Marques MD #### ANICOT #### [facility] [address] [place], [place] [id number] Ham Boner: Adolph Diaz MDLymphocytes/100 WBC (Bld)21 %Fvj61-96WlgjnKing'S Daughters Medical Center OhioComment on above:Performed By: #### CBC, PT, PTT, BMP #### [place] [address] Ham Boner: Casey Marques MD #### ANICOT #### [address] [phone] Ham Boner: NIMCO Ward (RBC) [Entitic mass]26.5 miNknone86.2-33.5 [facility] OhioComment on above:Performed By: #### CBC, PT, PTT, BMP #### [address] [phone] Ham Boner: Casey Marques MD #### ANICOT #### [address] [phone] Ham Boner: NIMCO WardC (RBC) [Mass/Vol]31.3 g/rMJsxzkx58.4-34.8 [facility] OhioComment on above:Performed By: #### CBC, PT, PTT, BMP #### [address] [phone] Ham Boner: Casey Marques MD #### ANICOT #### [facility] [address] [place], [place] [id number] Ham Boner: Adolph Diaz, MDMCV (RBC) [Entitic vol]85.0 aIGolfsj60.6-102.9 [facility] OhioComment on above:Performed By: #### CBC, PT, PTT, BMP #### [address] [address] Ham Boner: Casey Marques MD #### ANICOT #### [facility] [address] [place] [address] Ham Boner: Adolph Diaz MDMonocytes (Bld) [#/Vol]0.71 10*3/uLNormal 0.10-1.20[facility] OhioComment on above:Performed By: #### CBC, PT, PTT, BMP #### [address] [address] Ham Boner: Casey Marques MD #### ANICOT #### [facility] [address] [place] [address] Ham Boner: YESSICA Wardonocytes/100 WBC (Bld)7 %Normal3-12[facility] OhioComment on above:Performed By: #### CBC, PT, PTT, BMP #### [address] [address] Ham Boner: Casey Marques MD #### ANICOT #### [facility] [address] [place] [address] Ham Boner: Adolph Diaz MDNeutrophil (Seg)67 %Kice80-77YzvmnKing'S Daughters Medical Center OhioComment on above:Performed By: #### CBC, PT, PTT, BMP #### [address] [address] Ham Boner: Casey Marques MD #### ANICOT #### [facility] [address] [place] [address] Ham Boner: Adolph Diaz MDNRBC Automated0.0 per 100 WBCNormal0.0[facility] OhioComment on above:Performed By: #### CBC, PT, PTT, BMP #### [address] [address] Ham Boner: Casey Marques MD #### ANICOT #### [facility] [address] [place] [address] Ham Boner: Stephan Ward mean volume (Bld) [Entitic vol]8.6 fL Normal8.1-13.5[facility] OhioComment on above:Performed By: #### CBC, PT, PTT, BMP #### [address] [address] Ham Boner: Casey Marques MD #### ANICOT #### [facility] [address] [place] [address] Ham Boner: Yajaira Ward (Bld) [#/Vol]256 10*3/qOKkhnce553-349 [facility] OhioComment on above:Performed By: #### CBC, PT, PTT, BMP #### [address] [address] Ham Boner: Casey Marques MD #### ANICOT #### [facility] [address] [place] [address] Ham Boner: Adolph Diaz MDRBC (Bld) [#/Vol]4.52 10*6/uLNormal3.95-5.11[facility] OhioComment on above:Performed By: #### CBC, PT, PTT, BMP #### [address] [address] Ham Boner: Casey Marques MD #### ANICOT #### [facility] [address] [place] [address] Ham Boner: RAYMON Ward morphology finding Nom (Bld)ANISOCYTOSIS PRESENTGerman HospitalComment on above:Performed By: #### CBC, PT, PTT, BMP #### [facility] [address] [place] [address] Ham Boner: Casey Marques MD #### ANICOT #### [facility] [address] [place] [address] Ham Boner: DIEGO Ward (Bld) [#/Vol]10.7 10*3/uLNormal3.5-11.3[facility] Medical CenterComment on above:Performed By: #### CBC, PT, PTT, BMP #### [facility] [address] [place] [address] Ham Boner: Casey Marques MD #### ANICOT #### [facility] [address] [place] [address] Ham Boner: Arnav Ward PerformedNOT REPORTEDGerman HospitalComment on above:Performed By: #### CBC, PT, PTT, BMP #### [facility] [address] [place] [address] Ham Boner: Casey Marques MD #### ANICOT #### [facility] [address] [place] [address] Ham Boner: Stephan Ward EstimateNOT REPORTEDGerman HospitalComment on above:Performed By: #### CBC, PT, PTT, BMP #### [facility] [address] [place] [address] Ham Boner: Casey Marques MD #### ANICOT #### [facility] [address] [place] [address] Ham Boner: DIEGO Ward MorphologyNOT REPORTEDNormalKing'S Daughters Medical Center OhioComment on above:Performed By: #### CBC, PT, PTT, BMP #### [employer] [address] [place] [address] [phone] Ham Boner: Casey Marques MD #### ANICOT #### [facility] [address] [place] [address] Ham Boner: JACINTO Wardurgical Pathologyon 65-24-6204Pqftrzdl Pathology Report-- Diagnosis -- STOMACH, SLEEVE GASTRECTOMY: [...] with no areas of granularity or masses. [employer] sections 1cs. tm Microscopic Description Sections of gastric mucosa show increased lymphocytes and plasma cells in the lamina propria. There is no evidence of acute inflammation, intestinal metaplasia or dysplasia. There is no evidence of organisms suspicious for Helicobacter with the routine H&E stains. SURGICAL PATHOLOGY CONSULTATION Patient Name: JAZ SANDERS [facility] Rec: [id number] Path Number: [id number] [employer] [facility] ANATOMIC PATHOLOGY [address] [place] [phone] [facility]- [place], KYBasic Metabolic Panelon 78-09-2789Zdzoj gap [Moles/Vol]13 mmol/L9 - 17 mmol/LMercy Health- [place], KYBun/Cre RatioNOT REPORTEDMercy Health- [place], KYCalcium [Mass/Vol]9.4 mg/dL8.6 - 10.4 mg/dLMercy Health- [place], KYChloride [Moles/Vol]104 mmol/L98 - 107 mmol/LMercy Health- [place], [place] CO2 [Moles/Vol]23 mmol/L20 - 31 mmol/[facility], KYCreatinine [Mass/Vol] 0.73 mg/dL0.5 - 0.9 mg/dLLima Memorial Hospital, KYGFR >60>60 mL/min [facility], KYGFR Non->60>60 mL/minLima Memorial Hospital, [place] GFR/1.73 sq M predicted among non-blacks MDRD (S/P/Bld) [Vol rate/Area]NOT REPORTEDLima Memorial Hospital, KYGFR/1.73 sq M predicted among non-blacks MDRD (S/P/Bld) [Vol rate/Area][facility], KYComment on above:Average GFR for 20-29 years old: 116 mL/min/1.73sq m Chronic Kidney Disease: <60 mL/min/1.73sq m Kidney failure: <15 mL/min/1.73sq m eGFR calculated using average adult body mass. Additional eGFR calculator available at: http://www.[employer]/multiple_crcl_2011.htm Glucose [Mass/Vol]98 mg/dL70 - 99 mg/dLLima Memorial Hospital, KYPotassium [Moles/Vol] 4.1 mmol/L3.7 - 5.3 mmol/[facility], KYSodium [Moles/Vol]140 mmol/L135 - 144 mmol/[facility], KYUrea nitrogen [Mass/Vol]6 mg/dL6 - 20 mg/dLLima Memorial Hospital, KYBasic Metabolic Profon 05-07-2020(cont.)German HospitalComment on above:Result Comment: Average GFR for 20-29 years old: 116 mL/min/1.73sq m Chronic Kidney Disease: <60 mL/min/1.73sq m Kidney failure: <15 mL/min/1.73sq m eGFR calculated using average adult body mass. Additional eGFR calculator available at: http://www.[employer]/multiple_crcl_2012.htmPerformed By: #### CBC, BMP #### [employer] [facility] [place] [address] Ham Boner: Casey Marques MDAnion gap [Moles/Vol]13 mmol/LNormal9-17[facility] OhioComment on above:Performed By: #### CBC, BMP #### [facility] [address] [place] [address] Ham Boner: Casey Marques MDCalcium [Mass/Vol]9.4 mg/dLNormal8.6-10.4[facility] OhioComment on above:Performed By: #### CBC, BMP #### [facility] [address] [place] [address] Ham Boner: Casey Marques MDChloride [Moles/Vol]104 mmol/JLgaboe54-874MpwlgKing'S Daughters Medical Center OhioComment on above:Performed By: #### CBC, BMP #### [facility] [address] [place] [address] Ham Boner: Casey Marques MDCO2 [Moles/Vol]23 mmol/JIlavtc92-83AanvuKing'S Daughters Medical Center OhioComment on above:Performed By: #### CBC, BMP #### [facility] [address] [place] [address] Ham Boner: Casey Marques MDCreatinine [Mass/Vol]0.73 mg/dLNormal0.50-0.90 [facility] OhioComment on above:Performed By: #### CBC, BMP #### [facility] [address] [place] [address] Ham Boner: SIRISHA Capellan, Amer>60Normal>60[facility] OhioComment on above:Performed By: #### CBC, BMP #### [facility] [address] [place] [address] Ham Boner: Casey Madoff, MDGFR,non Amer>60Normal>60[facility] OhioComment on above:Performed By: #### CBC, BMP #### [facility] [address] [place] [address] Ham Boner: Casey Marques MDGlucose [Mass/Vol]98 mg/wPLxkfmd25-10ZxhvlSan Dimas Community HospitalComment on above:Performed By: #### CBC, BMP #### [facility] [address] [place] [address] Ham Boner: VERONICA Capellanotassium [Moles/Vol]4.1 mmol/LNormal3.7-5.3 [facility] OhioComment on above:Performed By: #### SAGRARIO, BMP #### [address] [address] Ham Boner: JACINTO Capellanodium [Moles/Vol]140 mmol/CVlkoig058-238KtnpfKing'S Daughters Medical Center OhioComment on above:Performed By: #### SAGRARIO, BMP #### [address] [address] Ham Boner: Casey Marques MDUrea nitrogen [Mass/Vol]6 mg/dLNormal6-20[facility] OhioComment on above:Performed By: #### SAGRARIO, BMP #### [address] [address] Ham Boner: Casey Marques MDBUN/CRE RatioNOT REPORTEDNormal9-20[facility] OhioComment on above:Performed By: #### SAGRARIO, BMP #### [address] [address] Ham Boner: JACINTO Capellantaging:NOT REPORTEDNormalKing'S Daughters Medical Center OhioComment on above:Performed By: #### CBC, BMP #### [facility] [address] [place] [address] Ham Boner: Nacho Capellan 25-08-8362Naouqbpajeu distribution width (RBC) [Ratio]14.4 %Pvegue26.8-14.4[facility] OhioComment on above:Performed By: #### CBC, BMP #### [address] [address] Ham Boner: Casey Marques MDHematocrit (Bld) [Volume fraction]40.4 %Normal 36.3-47.1MSan Dimas Community HospitalComment on above:Performed By: #### CBC, BMP #### [address] [address] Ham Boner: Casey Marques MDHemoglobin (Bld) [Mass/Vol]12.6 g/dLNormal 11.9-15.1MSan Dimas Community HospitalComment on above:Performed By: #### CBC, BMP #### [address] [address] Ham Boner: YESSICA CapellanCH (RBC) [Entitic mass]26.1 okAzzvex17.2-33.5 [facility] OhioComment on above:Performed By: #### CBC, BMP #### [address] [address] Ham Boner: YESSIAC CapellanCHC (RBC) [Mass/Vol]31.2 g/bWJxmdzz56.4-34.8 [facility] OhioComment on above:Performed By: #### CBC, BMP #### [address] [address] Ham Boner: YESSICA CapellanCV (RBC) [Entitic vol]83.8 yBCdulvh38.6-102.9 [facility] OhioComment on above:Performed By: #### CBC, BMP #### [address] [address] Ham Boner: Casey Marques MDNRBC Automated0.0 per 100 WBCNormal0.0[facility] OhioComment on above:Performed By: #### CBC, BMP #### [facility] [employer] [address] [place] [address] Ham Boner: Jose Capellantelet mean volume (Bld) [Entitic vol]8.7 fL Normal8.1-13.5[facility] OhioComment on above:Performed By: #### CBC, BMP #### [address] [address] Ham Boner: VERONICA Capellanlatelets (Bld) [#/Vol]289 10*3/fRAzosij062-658 [facility] OhioComment on above:Performed By: #### CBC, BMP #### [address] [address] Ham Boner: Casey Marques MDRBC (Bld) [#/Vol]4.82 10*6/uLNormal3.95-5.11 [facility] OhioComment on above:Performed By: #### CBC, BMP #### [address] [address] Ham Boner: Casey Marques MDWBC (Bld) [#/Vol]13.7 10*3/uLHigh3.5-11.3MSan Dimas Community HospitalComment on above:Performed By: #### CBC, BMP #### [facility] [employer] [address] [place] [address] Ham Boner: Casey Marques MDErythrocyte distribution width (RBC) [Ratio]14.4 %11.8 - 14.4 %[facility], KYHematocrit (Bld) [Volume fraction]40.4 %36.3 - 47.1 %[facility], KYHemoglobin (Bld) [Mass/Vol]12.6 g/dL11.9 - 15.1 g/dL [facility], INInterpretation and review of laboratory resultsAbnormSt. Charles Hospital, INMCH (RBC) [Entitic mass]26.1 pg25.2 - 33.5 pgOdon[place], [place] MCHC (RBC) [Mass/Vol]31.2 g/dL28.4 - 34.8 g/dLOdonnell, KYMCV (RBC) [Entitic vol]83.8 fL82.6 - 102.9 fLOdonnell, KYPlatelet mean volume (Bld) [Entitic vol]8.7 fL8.1 - 13.5 fLLima [facility] Hospital, INPlatelets (Bld) [#/Vol]289 10*3/[facility], INRBC (Bld) [#/Vol]4.82 10*6/uL3.95 - 5.11 m/[facility], INWBC (Bld) [#/Vol]0.0 10*3/uL0.0 per 100 WBCOdonnell, KYWBC (Bld) [#/Vol]13.7 10*3/uLHighOdonnell, KYFL ESOPHAGRAMon [id number] ESOPHAGRAMEXAMINATION: SINGLE CONTRAST ESOPHAGRAM 05/07/2020 HISTORY: ORDERING [...] Signed by: Petr Cullen MD 05/07/20 Final resultNoSumma Health Wadsworth - Rittman Medical CenterEXAMINATION: SINGLE CONTRAST ESOPHAGRAM 05/07/2020 HISTORY: [...] gastric sleeve. No obstruction. No extravasation of contrast.[facility] [email or web address] REGIONAL MEDICAL CENTERGerardo Mhpn Incoming Radiant Results From [employer] - 05/07/2020 10:04 AM EST EXAMINATION: SINGLE [...] of contrast. IMPRESSION: No extravasation of contrast. [facility] SpringfielduPartsNEVADA REGIONAL MEDICAL CENTERJacob extravasation of contrast.[facility] [email or web address].comNEVADA REGIONAL MEDICAL CENTERNORMAPOCT urine pregnancyon 03-68-3191Iknm HCG ( test) Ql (U)NegativeNEGATIVELima Memorial Hospital, NORMAComment on above:Specimens with hCG levels near the threshold of the test (25 mIU/mL) may give a negative or indeterminate result. In such cases, another test should be performed with a new specimen in 48-72 hours. If early is suspected clinically in this setting, correlation with quantitative serum b-hCG level is suggested. Basic Metabolic Panelon 49-95-2302Riaft gap [Moles/Vol]10 mmol/L9 - 17 mmol/L [facility] [email or web address].comNEVADA REGIONAL MEDICAL CENTER, KYBun/Cre RatioNOT REPORTEDLima [facility] Hospital, KYCalcium [Mass/Vol]9.5 mg/dL8.6 - 10.4 mg/dLLima Memorial Hospital, KYChloride [Moles/Vol]103 mmol/L98 - 107 mmol/LMercGainesville VA Medical Center, KYCO2 [Moles/Vol]19 mmol/LLow20 - 31 mmol/LMAdena Pike Medical Center, KYCreatinine [Mass/Vol]0.9 mg/dL0.5 - 0.9 mg/dLLima Memorial Hospital, KYGFR >60>60 mL/minLima Memorial Hospital, KYGFR Non- >60>60 mL/minLima Memorial Hospital, KYGFR/1.73 sq M predicted among non-blacks MDRD (S/P/Bld) [Vol rate/Area]NOT REPORTEDLima Memorial Hospital, [place] GFR/1.73 sq M predicted among non-blacks MDRD (S/P/Bld) [Vol rate/Area][facility], KYComment on above:Average GFR for 20-29 years old: 116 mL/min/1.73sq m Chronic Kidney Disease: <60 mL/min/1.73sq m Kidney failure: <15 mL/min/1.73sq m eGFR calculated using average adult body mass. Additional eGFR calculator available at: http://www.SkyFuel/PrimeAgain,Inc_crcl_2011.htm Glucose [Mass/Vol]162 mg/aQHzeb40 - 99 mg/dLLima Memorial Hospital, KYInterpretation and review of laboratory resultsAbnormalLima Memorial Hospital, KYPotassium [Moles/Vol]3.9 mmol/L3.7 - 5.3 mmol/[facility], KYSodium [Moles/Vol]132 mmol/NIkj069 - 144 mmol/[facility], KYUrea nitrogen [Mass/Vol]10 mg/dL6 - 20 mg/dLLima Memorial Hospital, KYBasic Metabolic Profon 05-06-2020(cont.)NormalKing'S Daughters Medical Center OhioComment on above:Result Comment: Average GFR for 20- 29 years old: 116 mL/min/1.73sq m Chronic Kidney Disease: <60 mL/min/1.73sq m Kidney failure: <15 mL/min/1.73sq m eGFR calculated using average adult body mass. Additional eGFR calculator available at: http://www.SkyFuel/multiple_crcl_2012.htmPerformed By: #### CBC, BMP #### [employer] [address] [place] [address] Ham Boner: Casey Marques MDAnion gap [Moles/Vol]10 mmol/LNormal9-17[facility] OhioComment on above:Performed By: #### CBC, BMP #### [facility] [address] [place] [address] Ham Boner: Casey Marques MDCalcium [Mass/Vol]9.5 mg/dLNormal8.6-10.4[facility] OhioComment on above:Performed By: #### CBC, BMP #### [facility] [address] [place] [address] Ham Boner: Casey Marques MDChloride [Moles/Vol]103 mmol/SOputjg89-072XhbahKing'S Daughters Medical Center OhioComment on above:Performed By: #### CBC, BMP #### [facility] [address] [place] [address] Ham Boner: Casey Marques MDCO2 [Moles/Vol]19 mmol/TIor95-82PhoguKing'S Daughters Medical Center OhioComment on above:Performed By: #### CBC, BMP #### [facility] [address] [place] [address] Ham Boner: Casey Marques MDCreatinine [Mass/Vol]0.90 mg/dLNormal0.50-0.90 [facility] OhioComment on above:Performed By: #### CBC, BMP #### [facility] [address] [place] [address] Ham Boner: SIRISHA Capellan, Amer>60Normal>60[facility] OhioComment on above:Performed By: #### CBC, BMP #### [facility] [address] [place] [address] Ham Boner: SIRISHA Capellan,non Amer>60Normal>60[facility] OhioComment on above:Performed By: #### CBC, BMP #### [facility] [address] [place] [place] [address] Ham Boner: Casey Marques MDGlucose [Mass/Vol]162 mg/nRKclz05-89IyztdSan Dimas Community HospitalComment on above:Performed By: #### CBC, BMP #### [facility] [address] [place] [address] Ham Boner: Casey Marques MDPotassium [Moles/Vol]3.9 mmol/LNormal3.7-5.3 [facility] OhioComment on above:Performed By: #### CBC, BMP #### [address] [address] Ham Boner: JACINTO Capellanodium [Moles/Vol]132 mmol/WMhn400-612GhswxKing'S Daughters Medical Center OhioComment on above:Performed By: #### SAGRARIO, BMP #### [address] [address] Ham Boner: Casey Marques MDUrea nitrogen [Mass/Vol]10 mg/dLNormal6-20[facility] OhioComment on above:Performed By: #### CBC, BMP #### [address] [address] Ham Boner: ROSALBA CapellanN/CRE RatioNOT REPORTEDNormal9-20[facility] OhioComment on above:Performed By: #### CBC, BMP #### [address] [address] Ham Boner: JACINTO Capellantaging:NOT REPORTEDNormalKing'S Daughters Medical Center OhioComment on above:Performed By: #### CBC, BMP #### [address] [address] Ham Boner: Nacho Capellan 25-62-6690Jfstlxqqdgw distribution width (RBC) [Ratio]14.6 %High11.8-14.4[facility] OhioComment on above:Performed By: #### CBC, BMP #### [address] [address] Ham Boner: Casey Marques MDHematocrit (Bld) [Volume fraction]42.5 %Normal 36.3-47.1MSan Dimas Community HospitalComment on above:Performed By: #### CBC, BMP #### [address] [address] Ham Boner: Casey Marques MDHemoglobin (Bld) [Mass/Vol]12.8 g/dLNormal 11.9-15.1MSan Dimas Community HospitalComment on above:Performed By: #### CBC, BMP #### [address] [address] Ham Boner: YESSICA CapellanCH (RBC) [Entitic mass]26.9 bbEeawld17.2-33.5 [facility] OhioComment on above:Performed By: #### CBC, BMP #### [address] [address] Ham Boner: YESSICA CapellanCHC (RBC) [Mass/Vol]30.1 g/fPVqvjxh78.4-34.8 [facility] OhioComment on above:Performed By: #### CBC, BMP #### [address] [address] Ham Boner: YESSICA CapellanCV (RBC) [Entitic vol]89.3 vOWhxosz02.6-102.9 [facility] OhioComment on above:Performed By: #### CBC, BMP #### [address] [address] Ham Boner: RAMONE Capellan Automated0.0 per 100 WBCNormal0.0[facility] OhioComment on above:Performed By: #### CBC, BMP #### [facility] [employer] [address] [place] [address] Ham Boner: Jose Capellantebrigid mean volume (Bld) [Entitic vol]8.4 fL Normal8.1-13.5[facility] OhioComment on above:Performed By: #### CBC, BMP #### [facility] [employer] [address] [place] [address] Ham Boner: Jose Capellantelets (Bld) [#/Vol]300 10*3/uZQrudcj799-521 [facility] OhioComment on above:Performed By: #### CBC, BMP #### [facility] [employer] [address] [place] [address] Ham Boner: MADDI CapellanBC (Bld) [#/Vol]4.76 10*6/uLNormal3.95-5.11 [facility] OhioComment on above:Performed By: #### CBC, BMP #### [address] [address] Ham Boner: DIEGO Capellan (Bld) [#/Vol]14.3 10*3/uLHigh3.5-11.3MSan Dimas Community HospitalComment on above:Performed By: #### CBC, BMP #### [facility] [employer] [address] [place] [address] Ham Boner: NIDIA Capellan without Diffon 40-32-8091Uqccmxhkmye distribution width (RBC) [Ratio]14.6 %High11.8 - 14.4 %[place], [place] Hematocrit (Bld) [Volume fraction]42.5 %36.3 - 47.1 %[place] Hemoglobin (Bld) [Mass/Vol]12.8 g/dL11.9 - 15.1 g/dLOdonnell, [place] Interpretation and review of laboratory resultsAbnormalChildren's Hospital of ColumbusH (RBC) [Entitic mass]26.9 pg25.2 - 33.5 pgOdonnell, KYMCHC (RBC) [Mass/Vol]30.1 g/dL28.4 - 34.8 g/dLOdonnell, KYMCV (RBC) [Entitic vol] 89.3 fL82.6 - 102.9 fLOdon[place], KYPlatelet mean volume (Bld) [Entitic vol]8.4 fL8.1 - 13.5 fLOdon[place], KYPlatelets (Bld) [#/Vol]300 10*3/uL [place], KYRBC (Bld) [#/Vol]4.76 10*6/uL3.95 - 5.11 m/uLOdon[place], KYWBC (Bld) [#/Vol]14.3 10*3/uLHighO[place], KYWBC (Bld) [#/Vol]0.0 10*3/uL0.0 per 100 WBCOdonnell, KYSurgical Pathologyon 05-06-2020 Surgical Pathology(NOTE) -- Diagnosis [...] with no areas of granularity or masses. [employer] sections 1cs. tm Microscopic Description Sections of gastric mucosa show increased lymphocytes and plasma cells in the lamina propria. There is no evidence of acute inflammation, intestinal metaplasia or dysplasia. There is no evidence of organisms suspicious for Helicobacter with the routine BRI stains. SURGICAL PATHOLOGY CONSULTATION Patient Name: JAZ SANDERS [facility] Rec: [id number] Path Number: [id number] [facility] ANATOMIC PATHOLOGY [address] [place] [phone] NoSumma Health Wadsworth - Rittman Medical CenterComment on above: Performed By: #### CBC, PT, PTT, BMP #### [facility] [employer] [address] [place] [id number] Ham Boner: Casey Marques MD #### ANICOT #### [facility] [address] [place] [address] Ham Boner: YU WardCoV-2on 67-88-1360NCMH-CoV-2NWooster Community HospitalComment on above:Performed By: #### COVID #### [address] [phone] Ham Boner: Tracie Capellan2Not DetectedNoalNOTDEBrown Memorial HospitalComment on above:Result Comment: The specimen is NEGATIVE for SARS-CoV-2, the novel coronavirus associated with COVID-19. A negative result does not rule out COVID-19. Bernard SARS-CoV-2 for use on the Bernard 6800/8800 Systems is a real-time RT-PCR test intended [...] this assay. Fact sheet for Healthcare Providers: https://www.fda.gov/media/688444/download Fact sheet for Patients: https://www.fda.gov/media/201353/download METHODOLOGY: RT-PCRPerformed By: #### COVID #### [facility] [address] [place] [address] Ham Boner: YU CapellanCoV-2,[facility] Comment on above:Performed By: #### COVID #### [facility] [address] [place] [address] Ham Boner: YU CapellanCoV-2on 63-03-5591HXIB-CoV-2 Source .NASOPHARYNGEAL SWABUniversity Hospitals Elyria Medical CenterComment on above:Performed By: #### COVID #### [facility] [employer] [address] [place] [address] Ham Boner: Ilana Capellan 15893-NQ-Gtsrxvcn<2NSelect Medical Specialty Hospital - YoungstownComment on above:Performed By: #### CBC, PT, PTT, BMP #### [facility] [address] [place] [address] Ham Boner: Casey Marques MD #### ANICOT #### [facility] [address] [place], [place] [id number] Ham Boner: Ariella Ward<2NormalKing'S Daughters Medical Center [place] Comment on above:Performed By: #### CBC, PT, PTT, BMP #### [facility] [address] [place] [place] [address] Ham Boner: Casey Marques MD #### ANICOT #### [facility] [address] [place], [place] [id number] Ham Boner: Jaja Wardotine<2NormalKing'S Daughters Medical Center [place] Comment on above:Result Comment: (NOTE) Consistent with [...] positive. Test developed and characteristics determined by [employer]. See Compliance Statement B: [email or web address]/CS Performed By: [facility] [address] [place] [address] Drum Plater: VERONICA Barerformed By: #### CBC, PT, PTT, BMP #### [employer] [facility] [place] [address] Ham Boner: Casey Marques MD #### ANICOT #### [employer] [address] [place] [address] Ham Boner: Shani WardUniversity Of Louisville Hospital [address]-JF-Jhzuxofa<2ng/mL [facility]- [place], KYCotinine<2ng/mLMerGüvenRehberi Health- [place], KYNicotine<2ng/mLMercy Health- [place], KYComment on [...] positive. Test developed and characteristics determined by [employer]. See Compliance Statement B: MD [email or web address]/CS Performed By: [employer] [address] [place] [address] Drum Plater: Lynn Layne MD EKG 12 Leadon 07-17-4007Xpkadw Yahl34VDXIybmkKettering Health [facility], KYP Lszd62kvihbbyMxmrw Health- [place], KYP-R Ddvyylwy462 [facility] [place], KYQ-T Ejdnjacn871 [facility], KYQRS Kitfuwzh89 [facility] [place], KYQTc Calculation (Tamelatt)500 [facility], KYR Hjve83fjkwnboGsybd Health- [place], KYT Xdfz98zphxlcsSwanz Health- [place], KYVentricular Gztk03RYONnkct Health- [place], KYNormal sinus rhythm with sinus arrhythmia Prolonged QT Abnormal ECG No previous ECGs availableLima Memorial Hospital, Silver Carrillo Incoming E[place] [facility] [place]23/[place] 12:32 PM EST Normal sinus rhythm with sinus arrhythmia Prolonged QT Abnormal ECG No previous ECGs availableLima Memorial Hospital, INAPTSierra Tucson 13-14-2202bZCC Coag (Bld) [Time]22.2 rMmzhxx89.5-30.5[facility] OhioComment on above: Result Comment: IV Heparin Therapy Range: 48.6-77.8Performed By: #### CBC, PT, PTT, BMP #### [employer] [address] [place] [address] Ham Boner: Casey Marques MD #### ANICOT #### [employer] [address] [place] [address] Ham Boner: Adolph Diaz MDaPTGino Coag (Bld) [Time]22.2 [facility], [place] Comment on above: IV Heparin Therapy Range: 48.6-77.8 Basic Metabolic Panelon 63-46-2963Tdktn gap [Moles/Vol]12 mmol/L9 - 17 mmol/L [facility], KYBun/Cre RatioNOT REPORTEDLima Memorial Hospital, KYCalcium [Mass/Vol]9.2 mg/dL8.6 - 10.4 mg/dLLima Memorial Hospital, KYChloride [Moles/Vol]104 mmol/L98 - 107 mmol/LMAdena Pike Medical Center, KYCO2 [Moles/Vol]23 mmol/L20 - 31 mmol/L [facility], KYCreatinine [Mass/Vol]0.69 mg/dL0.5 - 0.9 mg/dLLima Memorial Hospital, KYGFR >60>60 mL/minLima Memorial Hospital, KYGFR Non->60>60 mL/minLima Memorial Hospital, KYGFR/1.73 sq M predicted among non- blacks MDRD (S/P/Bld) [Vol rate/Area]NOT REPORTEDLima Memorial Hospital, KYGFR/1.73 sq M predicted among non-blacks MDRD (S/P/Bld) [Vol rate/Area][facility], [place] Comment on above:Average GFR for 20-29 years old: 116 mL/min/1.73sq m Chronic Kidney Disease: <60 mL/min/1.73sq m Kidney failure: <15 mL/min/1.73sq m eGFR calculated using average adult body mass. Additional eGFR calculator available at: http://www.SkyFuel/multiple_crcl_2011.htm Glucose [Mass/Vol]123 mg/bUZrzt91 - 99 mg/dLLima Memorial Hospital, KYInterpretation and review of laboratory resultsAbnormalLima Memorial Hospital, KYPotassium [Moles/Vol]4.1 mmol/L3.7 - 5.3 mmol/LMAdena Pike Medical Center, KYSodium [Moles/Vol]139 mmol/L135 - 144 mmol/LMAdena Pike Medical Center, KYUrea nitrogen [Mass/Vol]7 mg/dL6 - 20 mg/dLLima [facility] Hospital, KYBasic Metabolic Profon 04-22-2020(cont.)NormalKing'S Daughters Medical Center OhioComment on above:Result Comment: Average GFR for 20-29 years old: 116 mL/min/1.73sq m Chronic Kidney Disease: <60 mL/min/1.73sq m Kidney failure: <15 mL/min/1.73sq m eGFR calculated using average adult body mass. Additional eGFR calculator available at: http://www.Darwin [employer].TheCityGame/multiple_crcl_2012.htmPerformed By: #### CBC, PT, PTT, BMP #### [employer] [address] [place] [address] Ham Boner: Casey Marques MD #### ANICOT #### [facility] [address] [place] [address] Ham Boner: Dontae Ward gap [Moles/Vol]12 mmol/LNormal9-17[facility] OhioComment on above:Performed By: #### CBC, PT, PTT, BMP #### [address] [address] Ham Boner: Casey Marques MD #### ANICOT #### [address] [address] Ham Boner: XIN Wardalcium [Mass/Vol]9.2 mg/dLNormal8.6-10.4[facility] OhioComment on above:Performed By: #### CBC, PT, PTT, BMP #### [address] [address] Ham Boner: Casey Marques MD #### ANICOT #### [facility] [address] [place] [address] Ham Boner: XIN Wardhloride [Moles/Vol]104 mmol/ORwonsu14-244LgpmaKing'S Daughters Medical Center OhioComment on above:Performed By: #### CBC, PT, PTT, BMP #### [employer] [address] [place] [address] Ham Boner: Casey Marques MD #### ANICOT #### [facility] [address] [place] [address] Ham Boner: XIN WardO2 [Moles/Vol]23 mmol/AFtjvsw55-37NpmzlKing'S Daughters Medical Center OhioComment on above:Performed By: #### CBC, PT, PTT, BMP #### [facility] [address] [place] [address] Ham Boner: Casey Marques MD #### ANICOT #### [facility] [address] [place] [address] Ham Boner: XIN Wardreatinine [Mass/Vol]0.69 mg/dLNormal0.50-0.90 [facility] OhioComment on above:Performed By: #### CBC, PT, PTT, BMP #### [facility] [address] [place] [address] Ham Boner: Casey Marques MD #### ANICOT #### [facility] [address] [place], [place] [id number] Ham Boner: Adolph Diaz MDGFR, Amer>60Normal>60[facility] OhioComment on above:Performed By: #### CBC, PT, PTT, BMP #### [facility] [address] [place] [address] Ham Boner: Casey Marques MD #### ANICOT #### [facility] [address] [place] [address] Ham Boner: Adolph Diaz MDGFR,non Amer>60Normal>60[facility] OhioComment on above:Performed By: #### CBC, PT, PTT, BMP #### [facility] [address] [place] [address] Ham Boner: Casey Marques MD #### ANICOT #### [facility] [address] [place] [address] Ham Boner: Adolph Diaz MDGlucose [Mass/Vol]123 mg/wINaij07-91UhxjxSan Dimas Community HospitalComment on above:Performed By: #### CBC, PT, PTT, BMP #### [address] [address] Ham Boner: Casey Marques MD #### ANICOT #### [facility] [address] [place] [address] Ham Boner: VERONICA Wardotassium [Moles/Vol]4.1 mmol/LNormal3.7-5.3MSan Dimas Community HospitalComment on above:Performed By: #### CBC, PT, PTT, BMP #### [address] [address] Ham Boner: Casey Marques MD #### ANICOT #### [address] [address] Ham Boner: JACINTO Wardodium [Moles/Vol]139 mmol/UPvielk289-875IordkKing'S Daughters Medical Center OhioComment on above:Performed By: #### CBC, PT, PTT, BMP #### [address] [address] Ham Boner: Casey Marques MD #### ANICOT #### [facility] [address] [place] [address] Ham Boner: Adolph Diaz MDUrea nitrogen [Mass/Vol]7 mg/dLNormal6-20[facility] OhioComment on above:Performed By: #### CBC, PT, PTT, BMP #### [address] [address] Ham Boner: Casey Marques MD #### ANICOT #### [address] [address] Ham Boner: Adolph Diaz MDBUTanja/CRE RatioNOT REPORTEDNogranville medical center20[facility] OhioComment on above:Performed By: #### CBC, PT, PTT, BMP #### [facility] [address] [place] [place] [address] Ham Boner: Casey Marques MD #### ANICOT #### [facility] [address] [place] [address] Ham Boner: JACINTO Wardtaging:NOT REPORTEDNoalKing'S Daughters Medical Center OhioComment on above:Performed By: #### CBC, PT, PTT, BMP #### [facility] [address] [place] [place] [address] Ham Boner: Casey Marques MD #### ANICOT #### [facility] [address] [place] [address] Ham Boner: XIN Wardmanisha 49-04-9319Xldlgpwwiba distribution width (RBC) [Ratio]14.6 %High11.8-14.4[facility] OhioComment on above:Performed By: #### CBC, PT, PTT, BMP #### [facility] [address] [address] Ham Boner: Casey Marques MD #### ANICOT #### [facility] [address] [place] [address] Ham Boner: Adolph Diaz MDHematocrit (Bld) [Volume fraction]40.8 %Normal 36.3-47.1[facility] Medical CenterComment on above:Performed By: #### CBC, PT, PTT, BMP #### [facility] [address] [address] Ham Boner: Casey Marques MD #### ANICOT #### [facility] [address] [place], [place] [id number] Ham Boner: Adolph Diaz MDHemoglobin (Bld) [Mass/Vol]12.8 g/dLNormal 11.9-15.1MSan Dimas Community HospitalComment on above:Performed By: #### CBC, PT, PTT, BMP #### [address] [id number] Ham Boner: Casey Marques MD #### ANICOT #### [facility] [address] [place], [place] [id number] Ham Boner: YESSICA WardCH (RBC) [Entitic mass]26.5 ugNdjmdb63.2-33.5 [facility] OhioComment on above:Performed By: #### CBC, PT, PTT, BMP #### [address] [address] Ham Boner: Casey Marques MD #### ANICOT #### [facility] [address] [place], [place] [id number] Ham Boner: NIMCO WardC (RBC) [Mass/Vol]31.4 g/xDNpdhav61.4-34.8 [facility] OhioComment on above:Performed By: #### CBC, PT, PTT, BMP #### [address] [id number] Ham Boner: Casey Marques MD #### ANICOT #### [facility] [address] [place], [place] [id number] Ham Boner: YESSICA WardCV (RBC) [Entitic vol]84.5 nBLgftas06.6-102.9 [facility] OhioComment on above:Performed By: #### CBC, PT, PTT, BMP #### [address] [address] Ham Boner: Casey Marques MD #### ANICOT #### [facility] [address] [place] [address] Ham Boner: Adolph Diaz MDNRBC Automated0.0 per 100 WBCNormal0.0[facility] OhioComment on above:Performed By: #### CBC, PT, PTT, BMP #### [facility] [address] [place] [place] [address] Ham Boner: Casey Marques MD #### ANICOT #### [facility] [address] [place] [address] Ham Boner: Stephan Ward mean volume (Bld) [Entitic vol]8.7 fL Normal8.1-13.5[facility] OhioComment on above:Performed By: #### CBC, PT, PTT, BMP #### [place] [address] Ham Boner: Casey Marques MD #### ANICOT #### [facility] [address] [place] [address] Ham Boner: Yajaira Ward (Bld) [#/Vol]298 10*3/rWWyymtf459-219 [facility] OhioComment on above:Performed By: #### CBC, PT, PTT, BMP #### [place] [address] Ham Boner: Casey Marques MD #### ANICOT #### [facility] [address] [place] [address] Ham Boner: RAYMON Ward (Bld) [#/Vol]4.83 10*6/uLNormal3.95-5.11[facility] OhioComment on above:Performed By: #### CBC, PT, PTT, BMP #### [place] [id number] Ham Boner: Casey Marques MD #### ANICOT #### [facility] [address] [place] [address] Ham Boner: Adolph Diaz MDWBC (Bld) [#/Vol]10.8 10*3/uLNormal3.5-11.3[facility] CenterComment on above:Performed By: #### CBC, PT, PTT, BMP #### [facility] [address] [place], [place] [address] Ham Boner: Casey Marques MD #### ANICOT #### [facility] [address] [place] [address] Ham Boner: Adolph Diaz MDErythrocyte distribution width (RBC) [Ratio]14.6 %High11.8 - 14.4 %[facility], INHematocrit (Bld) [Volume fraction]40.8 % 36.3 - 47.1 %[facility], INHemoglobin (Bld) [Mass/Vol]12.8 g/dL11.9 - 15.1 g/dLLima [facility] Hospital, INInterpretation and review of laboratory resultsAbnormal [facility], [facility] (RBC) [Entitic mass]26.5 pg25.2 - 33.5 pgLima Memorial Hospital, [facility] (RBC) [Mass/Vol]31.4 g/dL28.4 - 34.8 g/dLLima [facility], [facility] (RBC) [Entitic vol]84.5 fL82.6 - 102.9 fLMed[facility]- [place], INPlatelet mean volume (Bld) [Entitic vol]8.7 fL8.1 - 13.5 fLMedina Hospital- [place], KYPlatelets (Bld) [#/Vol]298 10*3/uLMedina Hospital- [place], KYRBC (Bld) [#/Vol]4.83 10*6/uL3.95 - 5.11 m/[facility]- [place], KYWBC (Bld) [#/Vol]10.8 10*3/uLLima Memorial HospitalNORMAWBC (Bld) [#/Vol]0.0 10*3/uL0.0 per 100 WBCLima Memorial HospitalHectoron 05-04-2735Cm acute cardiopulmonary findingsLima Memorial HospitalNORMAEXAMINATION: TWO XRAY VIEWS OF THE CHEST 04/22/2020 2:46 pm COMPARISON: Baseline examination HISTORY:ORDERING SYSTEM PROVIDED HISTORY: preop gastric bypass [employer] TECHNOLOGIST PROVIDED HISTORY: preop gastric bypass Ben En Y Reason for Exam: preop gastric bypass FINDINGS: Normal cardiopericardialsilhouette There are no significant pleural, parenchymal, mediastinal or osseous findingsLima Memorial HospitalNORMASilver [place] Incoming Radiant Results From [email or web address] - 04/22/2020 3:28 PM EST EXAMINATION: TWO XRAY VIEWS OF THE CHEST 04/22/2020 2:46 pm COMPARISON: Baseline examination HISTORY: ORDERING SYSTEM PROVIDED HISTORY: preop gastric bypass Ben En Y TECHNOLOGIST PROVIDED HISTORY: preop gastric bypass Ben En Y Reason for Exam: preop gastric bypass FINDINGS: Normal cardiopericardial silhouette There are no significant pleural, parenchymal, mediastinal or osseous findings IMPRESSION: No acute cardiopulmonary findings [facility] HospitalEricka [id number] Coag (PPP) [Relative time]0.9 {INR}Normal [facility] OhioComment on above:Result Comment: Therapeutic Range: Moderate Anticoagulant Intensity: INR = 2.0-3.0 High Anticoagulant Intensity: INR = 2.5-3.5Performed By: #### CBC, PT, PTT, BMP #### [employer] [address] [place], [place] [id number] Ham Boner: Casey Marques MD #### ANICOT #### [facility] [address] [place] [address] Ham Boner: CULLEN Ward Coag (PPP) [Time]9.3 sNormal9.0-12.0[facility] OhioComment on above:Performed By: #### CBC, PT, PTT, BMP #### [employer] [address] [place] [address] Ham Boner: Casey Marques MD #### ANALI #### [facility], [facility] [address] [place] [address] Ham Boner: VERONICA Wardrotime-INRon [id number] Coag (PPP) [Relative time]0.9 {INR}[employer], NORMAComup health system on above: Therapeutic Range: Moderate Anticoagulant Intensity: INR = 2.0-3.0 High Anticoagulant Intensity: INR = 2.5-3.5 PT Coag (PPP) [Time]9.3 sMmansfield hospital [place], KYXR CHEST (2 VW)on 99-15-1808PP CHEST (2 VW)EXAMINATION: TWO XRAY VIEWS OF [...] Signed by: Roxanne Avitia MD 04/22/20 Final resultNoSum[facility] Vital Signs Date TimeVital SignValuePerforming WitlnlsoiBbmzmxno02-29-8862 13:26-0500Body mass index (BMI) [Ratio]40.03 kg/i1Odgrr Juan DO Work Phone: [facility] HospitalAwymugycxe58-05-7638 13:26-0500Body mnlyjs582.18 kgCorey Juan DO Work Phone: [facility] HospitalRrcrjkrpjj33-03-6614 13:26-0500Diastolic blood uvrehsxt65 mm[Hg]Les Juan DO Work Phone: [facility] HospitalGqdxoyamsy22-52-2245 13:26-0500Systolic blood aipshgld334 mm[Hg]Les Juan DO Work Phone: [facility] HospitalQvjbzwbomo00-72-0245 14:43-0400Body mass index (BMI) [Ratio]39.77 kg/m2Amy Holcomb PA Work Phone: [phone]-[facility] HospitalXfprzxrnbb79-87-5040 14:43-0400Body orqtxa892.33 kgAmy Holcomb PA Work Phone: [facility] HospitalPuzbygdhms92-62-6131 14:43-0400Diastolic blood daojspka55 mm[Hg]Jojo Ames PA Work Phone: 1([phone]-[facility] HospitalQtglzdxonv00-82-3157 14:43-0400Systolic blood mkzaxjgu190 mm[Hg]Jojo Pelaezey PA Work Phone: 1([phone])995-[address] [place], [place] [address]Auasphgrtd78-98-1890 11:34-0400Body mass index (BMI) [Ratio]38.49 kg/p3EtqeuqlhMima Duenas [employer] Work Phone: [phone])086-[facility] HospitalYyiqzjwtpg87-98-2698 11:34-0400Body vbsske262.19 kgMima Duenas [employer] Work Phone: [phone] [place], [place] [address]Tbvmakahpw99-56-0029 11:34-0400Diastolic blood muqvdymt24 mm[Hg]Mima Duenas [employer] Work Phone: [phone])503-[address] [place], [place] [address]Brotgyrjow47-62-4894 11:34-0400Systolic blood zogyotjh399 mm[Hg]Mima Duenas [employer] Work Phone: 1([phone])864-[address] [place], [place] [address]Fsdtpiosgm09-32-0999 10:01-0400Body mass index (BMI) [Ratio]36.79 kg/m2Amy Kwaku PA Work Phone: [phone] [place], [place] [address]Fiwpwfipzj30-77-1269 10:01-0400Body .66 kgAmy Kwaku PA Work Phone: [phone])221-[address] [place], [place] [address]Ngmmlaazeh87-81-0247 10:01-0400Diastolic blood rxpoaewv83 mm[Hg]Jojo Ames PA Work Phone: 1(633)231-[address] [place], [place] [address]Jvsybnmxfk90-24-7820 10:01-0400Systolic blood qnqcmfab400 mm[Hg]Jojo Ames PA Work Phone: [phone] [place], [place] [address]Plhnbslfsw80-85-4743 12:46-0400Body ggafij334.3 cmEnrike Lindquist MD Work Phone: [phone])[address] [place], [place] 1442008-20-2025 12:46-0400Body mass index (BMI) [Ratio]35.84 kg/o2MwqarahzEnrike Lindquist MD Work Phone: 1(555)[address] [place], [place] 1442008-20-2025 12:46-0400Body .57 kgEnrike Lindquist MD Work Phone: 1(051)[address] [place], [place] 1442008-20-2025 12:46-0400Diastolic blood mxfjlyce46 mm[Hg]Enrike Lindquist MD Work Phone: 1(550)[address] [place], [place] 1442008-20-2025 12:46-0400Heart rate 73 /minEnrike Lindquist MD Work Phone: 1(587)[address] [place], [place] 1442008-20-2025 12:46-0400Systolic blood mqehcunk95 mm[Hg]Enrike Lindquist MD Work Phone: 1(790)[address] [place], [place] 1442008-17-2025 23:35-0400Body .34 cmAmanda Shethrbacher ELEMENT BURNER Work Phone: [facility]08-17-2025 23:35-0400 Body qqzwfvzaahz69.2 [degF]Amanda Ford [employer]NER Work Phone: [facility]08-17-2025 23:35-0400 Body yvcsvv749.66 kgAmanda Shethrbacher [employer]NER Work Phone: [facility]08-17-2025 23:35-0400 Diastolic blood dfpfbbxu17 mm[Hg]Amanda Ford [employer]NER Work Phone: [facility]08-17-2025 23:35-0400 Heart rate75 /minAretmionnedmundo Shethrbacher [employer]NER Work Phone: [facility]08-17-2025 23:35-0400 Respiratory rate16 /minAmanda Shethrbacher [employer]NER Work Phone: [facility]08-17-2025 23:35-0400 SaO2% (BldA) [Mass fraction]97 %Amanda Ford [employer]NER Work Phone: [facility]08-17-2025 23:35-0400 Systolic blood ooufujys080 mm[Hg]Amanda Hahnnikkie [employer]NER Work Phone: [facility]08-05-2025 10:37-0400 Body zewiox351.1216 kgAmanda Ford [employer]MENT BURNER Work Phone: [facility]08-05-2025 09:10-0400 Body mass index (BMI) [Ratio]35.7 kg/q6Izivx Juan DO Work Phone: [facility] HospitalCoalwlfdfy22-96-0559 09:10-0400Body rdnryp293.12 kgCorey Juan DO Work Phone: [facility] HospitalTdvjvfmdym94-17-9425 09:10-0400Diastolic blood cjstznub25 mm[Hg]Les Juan DO Work Phone: [facility] HospitalQbjbwqhqqt81-11-9174 09:10-0400Systolic blood wvazjykq548 mm[Hg]Les Juan DO Work Phone: [facility] HospitalChphyburwc35-84-9228 11:28-0400Body mass index (BMI) [Ratio]31.24 kg/l4Darqc Juan DO Work Phone: [facility] HospitalPzibtgabjp90-48-4692 11:28-0400Body ypehdl737.61 kgCorey Juan DO Work Phone: [facility] HospitalWeqtbjejfo27-36-9468 11:28-0400Diastolic blood spgzajbe65 mm[Hg]Les Juan DO Work Phone: [facility] HospitalYyzemzhydg54-13-1750 11:28-0400Systolic blood erbudgbe735 mm[Hg]Les Juan DO Work Phone: [facility] HospitalViydzuwlug55-69-1079 13:34-0400Diastolic blood pzsbvgru06 mm[Hg]Amanda Logan [employer] Work Phone: [facility]07-03-2025 13:34-0400 Heart rate60 /Juan Pablo Logan [employer] Work Phone: [phone]07-03-2025 13:34-0400 Respiratory rate18 /Jhonnyaicha Ford [employer]NER Work Phone: [phone]07-03-2025 13:34-0400 SaO2% (BldA) [Mass fraction]99 %Amanda Logan [employer] Work Phone: [phone]07-03-2025 13:34-0400 Systolic blood bhsdaxmk709 mm[Hg]Amanda Shethbilly [employer]NER Work Phone: [phone])743-[address] [place], [place] [address]07-03-2025 10:38-0400 Body ysvtdx006.34 cmAmanda Shethbilly [employer]NER Work Phone: [phone]07-03-2025 10:38-0400 Body ttbitwqwqql60.1 [degF]Amanda Shethbilly [employer]NER Work Phone: [phone]07-03-2025 10:38-0400 Body pezxry406.85 kgAmanda Shethbilly [employer]NER Work Phone: [phone]06-05-2025 15:06-0400 Body mass index (BMI) [Ratio]31.24 kg/m2[facility]06-05-2025 15:06-0400Body iohpuc929.61 kgPers[facility] Hospital06-05-2025 15:06-0400 Diastolic blood oxfgffdo78 mm[Hg][facility]06-05-2025 15:06-0400 Systolic blood vmhfymlt290 mm[Hg][facility]05-07-2025 10:04-0400 Body prtbyr045.3 Kam Sinclair MD Work Phone: [phone]05-07-2025 10:04-0400Body mass index (BMI) [Ratio]29.99 kg/h3HwqyeDarleen Sinclair MD Work Phone: [phone] [place], [place] 7857005-07-2025 10:04-0400Body .52 kgDarleen Sinclair MD Work Phone: [phone])[address] [place], [place] 7857005-07-2025 10:04-0400Diastolic blood npgmmaeu69 mm[Hg]Darleen Sinclair MD Work Phone: [phone] [place], [place] 7857005-07-2025 10:04-0400Heart rate67 /min Darleen Sinclair MD Work Phone: [phone] [place], [place] 7857005-07-2025 10:04-0400Respiratory rate16 /minDarleen Sinclair MD Work Phone: [phone])[address] [place], [place] 7857005-07-2025 10:04-4250ZnT8% (BldA) [Mass fraction]99 %Darleen Sinclair MD Work Phone: [phone])[address] [place], [place] 7857005-07-2025 10:04-0400Systolic blood xwrifald827 mm[Hg]Darleen Sinclair MD Work Phone: [phone] [place], [place] 7857001-09-2025 08:32-0500Body ejntft937.34 cmL[facility] Hospital01-09-2025 08:32-0500Body mass index (BMI) [Ratio]30.4 kg/c0XgfowbchzLicking Memorial Hospital01-09-2025 08:32-0500Body zycvxdbvwwa48.3 [degF][facility]01-09-2025 08:32-0500Body .99 kgL[facility] Hospital01-09-2025 08:32-0500Diastolic blood auvcdzdj46 mm[Hg][facility]01-09-2025 08:32-0500 Heart rate73 /minL[facility] Hospital01-09-2025 08:32-8097LvQ3% (BldA) [Mass fraction]98 %[facility]01-09-2025 08:32-0500 Systolic blood wyfytqwf542 mm[Hg][facility]11-12-2024 14:03-0500Body kipolv056.3 cmIgnacio Guy MD Work Phone: [phone] [facility] HospitalEbzgvv26-47-9337 14:03-0500Body mass index (BMI) [Ratio]30.23 kg/r4PujhyaIgnacio Guy MD Work Phone: [facility]and Iwcdhj33-70-5831 14:03-0500Body btavtf33.3 kgIgnacio Guy MD Work Phone: [facility]and Wdgtry49-97-0346 15:12-0500Body mass index (BMI) [Ratio]31.71 kg/g7Npdqr Juan DO Work Phone: [facility] HospitalEqhfdpcqti18-22-6590 15:12-0500Body xmojpu558.25 kgCorey Juan DO Work Phone: [facility] HospitalPpjocrpyda73-49-4214 15:12-0500Diastolic blood lkbecsbe48 mm[Hg]Les Juan DO Work Phone: [facility] HospitalSnycytekvr13-27-6546 15:12-0500Systolic blood stifdzqy531 mm[Hg]Les Juan DO Work Phone: [facility] HospitalCksmuuxmsx67-21-8954 11:46-0400Diastolic blood lzizvxiv67 mm[Hg]MELY Ford Work Phone: [facility]08-21-2024 11:46-0400 Heart rate76 /minAPRTanja Ford Work Phone: [facility]08-21-2024 11:46-0400 Respiratory rate16 /minAPRTanja Ford Work Phone: [facility]08-21-2024 11:46-0400 SaO2% (BldA) [Mass fraction]99 %MELY Ford Work Phone: [facility]08-21-2024 11:46-0400 Systolic blood apnsxkap971 mm[Hg]MELY Ford Work Phone: [phone]08-21-2024 10:20-0400 Body [degF]MELY Ford Work Phone: [phone]08-21-2024 09:55-0400 Inhaled oxygen flow rate3 L/minMELY Ford Work Phone: [phone]08-21-2024 06:29-0400 Body trxcju122.34 Justo Hahnr Work Phone: [phone]08-21-2024 06:29-0400 Body .25 kgMELY Hahnr Work Phone: [phone]07-16-2024 11:56-0400 Body zfivdd676.34 Justo Hahnr Work Phone: [phone]07-16-2024 11:56-0400 Body mass index (BMI) [Ratio]28.8 kg/m2MELY Hahnr Work Phone: [phone]07-16-2024 11:56-0400 Body iqzaui64.89 kgMELY Hahnr Work Phone: [phone] [place], [place] [address]510102-21-2024 14:56-0500 Body pakmvx318.34 cmL[facility] Hospital02-21-2024 14:56-0500Body mass index (BMI) [Ratio]29.4 kg/t2IjjnwbsamLicking Memorial Hospital02-21-2024 14:56-0500Body pailcp68.7 kgL[facility] Hospital02-21-2024 14:56-0500Diastolic blood pqadcgxv55 mm[Hg][facility] 06-08-2023 14:56-0500Heart rate51 /minL[facility] Hospital 06-08-2023 14:56-9664RiQ8% (BldA) [Mass fraction]98 %[facility]02-21-2024 14:56-0500Systolic blood httfcrta832 mm[Hg][facility]01-30-2024 14:30-0500Body lokpsq640.34 cmGuillepamela Millerley Other [facility]01-30-2024 14:30-0500 Body mass index (BMI) [Ratio]27.47 kg/n0OrosvRomeo Santana Other [employer] Other 01-30-2024 14:30-0500Body .36 kgGuillepamela Esther Other [employer] Other 01-30-2024 14:30-0500Body flfhce32.35 kgL[facility] Hospital10-23-2023 14:30-0400Body peslia286.34 cmPetr Lay Other [employer] Other 10-23-2023 14:30-0400Body mass index (BMI) [Ratio] 27.61 kg/s8CnsjrekPetr Lay Other [employer] Other 10-23-2023 14:30-0400Body mztezrylhan75.1 [degF] Petr Lay Other [employer] Other 10-23-2023 14:30-0400Body xacoio33.81 kgPetr Lay Other [employer] Other 10-23-2023 14:30-0400Diastolic blood sgzyyups91 mm[Hg] Petr Lay Other [employer] Other 10-23-2023 14:30-2175EmF5% (BldA) [Mass fraction]99 % Petr Lay Other [employer] Other 10-23-2023 14:30-0400Systolic blood jwrbuzft910 mm[Hg] Petr Lay Other [employer] Other 09-11-2023 11:30-0400Body .34 cmMajose guadalupe Lay Other [employer] Other 09-11-2023 11:30-0400Body mass index (BMI) [Ratio] 28.03 kg/y8MuvgpiwPetr Lay Other [employer] Other 09-11-2023 11:30-0400Body egtbbu18.17 kgMajose guadalupe Lay Other [employer] Other 09-11-2023 11:30-0400Diastolic blood aoesedmi56 mm[Hg] Petr Lay Other [employer] Other 09-11-2023 11:30-0400Respiratory rate18 /minMattnany Lay Other [employer] Other 09-11-2023 11:30-2311RrT4% (BldA) [Mass fraction]99 % Petr Lay Other [employer] Other 09-11-2023 11:30-0400Systolic blood llnzvjxa287 mm[Hg] Petr Lay Other [employer] Other 06-26-2023 13:30-0400Body baapfg173.34 cmMajose guadalupe Lay Other [employer] Other 06-26-2023 13:30-0400Body mass index (BMI) [Ratio] 28.78 kg/d2TogkjzcPetr Lay Other [employer] Other 06-26-2023 13:30-0400Body equplx36.62 kgPetr Lay Other [employer] Other 06-26-2023 13:30-0400Diastolic blood epnuzufh42 mm[Hg] Petr Lay Other [employer] Other 06-26-2023 13:30-0400Respiratory rate18 /minPetr Lay Other [employer] Other 06-26-2023 13:30-9041UoJ2% (BldA) [Mass fraction]98 % Petr Lay Other [employer] Other 06-26-2023 13:30-0400Systolic blood pdtlnxiq522 mm[Hg] Petr Lay Other [employer] Other 06-15-2023 08:00-0400Body ksciej747.34 cmJephamifer Merylrbacher Other [employer] Other 06-15-2023 08:00-0400Body mass index (BMI) [Ratio] 28.03 kg/v1Ntnoirwk Rohrbacher Other [employer] Other 06-15-2023 08:00-0400Body ifijru88.17 kgJephamifer Rohrbacher Other [employer] Other 06-15-2023 08:00-0400Diastolic blood unlwjwsy12 mm[Hg] Amanda Rosarioacher Other [employer] Other 06-15-2023 08:00-6858SaL2% (BldA) [Mass fraction]95 % Amanda Jovanir Other [employer] Other 06-15-2023 08:00-0400Systolic blood nvmvnock825 mm[Hg] Amanda Jovanir Other [employer] Other 05-10-2023 15:30-0400Body xmcjli200.34 cmAmanda Merylrbacher Other [employer] Other 05-10-2023 15:30-0400Body mass index (BMI) [Ratio] 29.15 kg/j3Iumlgybe Merylrbacher Other [employer] Other 05-10-2023 15:30-0400Body ohnmce96.8 kgAmanda Merylrbacher Other [employer] Other 05-10-2023 15:30-0400Diastolic blood mm[Hg] Amanda Rosarioacher Other [employer] Other 05-10-2023 15:30-0400Systolic blood muznjqez709 mm[Hg] Amanda Merylrbacher Other [employer] Other 05-05-2023 11:00-0400Body augfgh251.34 cmAmanda Shethrbacher Other [employer] Other 05-05-2023 11:00-0400Body mass index (BMI) [Ratio] 28.73 kg/b0BzhhfncoAmanda Ford Other [employer] Other 05-05-2023 11:00-0400Body tiwfjn38.44 kgAmanda Ford Other [employer] Other 05-05-2023 11:00-0400Diastolic blood oxhrygcf00 mm[Hg] Amanda Shethbilly Other [employer] Other 05-05-2023 11:00-1100LyK8% (BldA) [Mass fraction]100 % Amanda Logan Other [employer] Other 05-05-2023 11:00-0400Systolic blood kbsnoxjl251 mm[Hg] Amanda Logan Other [employer] Other 02-24-2023 16:43-0500Body tgvgkyamopx83.1 [degF]MD Mariam Appiah Work Phone: [facility]02-24-2023 16:43-0500 Diastolic blood ddkqvsto07 mm[Hg]MD Mariam Appiah Work Phone: [facility]02-24-2023 16:43-0500 Heart rate60 /minMD Mariam Appiah Work Phone: [facility]02-24-2023 16:43-0500 Respiratory rate16 /minMD Mariam Appiah Work Phone: [facility]02-24-2023 16:43-0500 SaO2% (BldA) [Mass fraction]100 %MD Mariam Appiah Work Phone: 1(164)[address] [place], [place] 4806602-24-2023 16:43-0500 Systolic blood wythqjto045 mm[Hg]MD Mariam Appiah Work Phone: 1(039)[address] [place], [place] 4806602-24-2023 09:40-0500 Body pqvruy625.34 cmMD Mariam Appiah Work Phone: 1(824)[address] [place], [place] 4806602-24-2023 05:42-0500 Body cxcgij74 kgMD Mariam Appiah Work Phone: 1(412)[address] [place], [place] 4806602-23-2023 17:55-0500 Body sqtkziqfgnl85.1 [degF]MD Mariam Appiah Work Phone: 1(879)[address] [place], [place] 4806602-23-2023 17:55-0500 Diastolic blood wyupjeez86 mm[Hg]MD Mariam Appiah Work Phone: 1(238)[address] [place], [place] 4806602-23-2023 17:55-0500 Heart rate62 /minMD Mariam Appiah Work Phone: 1(630)[address] [place], [place] 4806602-23-2023 17:55-0500 Respiratory rate18 /minMD Mariam Appiah Work Phone: 1(908)[address] [place], [place] 4806602-23-2023 17:55-0500 SaO2% (BldA) [Mass fraction]100 %MD Mariam Appiah Work Phone: 1(227)[address] [place], [place] 4806602-23-2023 17:55-0500 Systolic blood yflekllx508 mm[Hg]MD Mariam Appiah Work Phone: 1(046)[address] [place], [place] 4806602-23-2023 14:22-0500 Body cjlsen958.34 cmMD Mariam Appiah Work Phone: 1(498)[address] [place], [place] 4806602-23-2023 14:22-0500 Body cirrbj87.7 kgMD Mariam Appiah Work Phone: 1(894)[address] [place], [place] 4806601-04-2023 15:00-0500 Body gsdldi406.34 cmAmanda Ponceacher Other [employer] Other 01-04-2023 15:00-0500Body mass index (BMI) [Ratio] 27.81 kg/d4HmcdeyhjAmanda Shethbilly Other [employer] Other 01-04-2023 15:00-0500Body mirwykpjdvt83.2 [degF] Amanda Logan Other [employer] Other 01-04-2023 15:00-0500Body .45 kgAmanda Shethsarahachenikkie Other [employer] Other 01-04-2023 15:00-0500Diastolic blood nntaipru87 mm[Hg] Amanda Logan Other [employer] Other 01-04-2023 15:00-0500Respiratory rate18 /minAmanda Shethbilly Other [employer] Other 01-04-2023 15:00-2213YhB5% (BldA) [Mass fraction]99 % Amandarufino Ford Other [employer] Other 01-04-2023 15:00-0500Systolic blood ejcqirjv550 mm[Hg] Amanda Ford Other [employer] Other 12-24-2022 21:41-0500Diastolic blood dxlasiqr93 mm[Hg] MD Mariam Appiah Work Phone: [facility]12-24-2022 21:41-0500 Systolic blood diatarbr529 mm[Hg]MD Mariam Appiah Work Phone: 1(096)[address] [place], [place] 4806612-24-2022 18:14-0500 Body .34 cmMD Mariam Appiah Work Phone: 1(188)[address] [place], [place] 4806612-24-2022 18:14-0500 Body giqyeamvloh04.1 [degF]MD Mariam Appiah Work Phone: 1(821)[address] [place], [place] 4806612-24-2022 18:14-0500 Body oxbfkt10 kgMD Mariam Appiah Work Phone: 1(765)[address] [place], [place] 4806612-24-2022 18:14-0500 Heart qffb463 /minMD Mariam Appiah Work Phone: 1(168)[address] [place], [place] 4806612-24-2022 18:14-0500 Respiratory rate18 /minMD Mariam Appiah Work Phone: 1(272)[address] [place], [place] 4806612-24-2022 18:14-0500 SaO2% (BldA) [Mass fraction]100 %MD Mariam Appiah Work Phone: 1(735)[address] [place], [place] 4806612-22-2022 17:15-0500 Body .5 [degF]MD Mariam Appiah Work Phone: 1(766)[address] [place], [place] 4806612-22-2022 17:15-0500 Diastolic blood sgpugbos44 mm[Hg]MD Mariam Appiah Work Phone: 1(834)[address] [place], [place] 4806612-22-2022 17:15-0500 Heart rate59 /minMD Mariam Appiah Work Phone: 1([phone] [place], [place] 4806612-22-2022 17:15-0500 Respiratory rate18 /minMD Mariam Appiah Work Phone: 1([phone] [place], [place] 4806612-22-2022 17:15-0500 SaO2% (BldA) [Mass fraction]100 %MD Mariam Appiah Work Phone: 1([phone] [place] [address] [id number] 17:15-0500 Systolic blood mm[Hg]MD Mariam Appiah Work Phone: [facility]12-22-2022 14:33-0500 Body mtmqwe677.34 cmMD Mariam Appiah Work Phone: [facility]12-22-2022 14:33-0500 Body atunnb20.1 kgMD Mariam Appiah Work Phone: [facility]12-06-2022 15:30-0500 Body pvfdyl700.34 cmAmanda Shethrbacher Other [employer] Other 12-06-2022 15:30-0500Body mass index (BMI) [Ratio] 27.05 kg/u1KokurybwAmanda Ponceacher Other [employer] Other 12-06-2022 15:30-0500Body dsqrib56 kgJeaicha Merylrbacher Other [employer] Other 12-06-2022 15:30-0500Diastolic blood ztoiecjq33 mm[Hg] Amanda Ford Other [employer] Other 12-06-2022 15:30-7019MqQ1% (BldA) [Mass fraction]98 % Amanda Ford Other [employer] Other 12-06-2022 15:30-0500Systolic blood mm[Hg] Amanda Ford Other [employer] Other 10-24-2022 10:00-0400Body xhelde594.34 cmAmanda Shethrbacher Other [facility] [employer] Other 10-24-2022 10:00-0400Body mass index (BMI) [Ratio] 27.47 kg/e3OkeiwwdeAmanda Ford Other [facility] [employer] Other 10-24-2022 10:00-0400Body upftob27.36 kgAmanda Shethsarahangelnikkie [facility] [employer] Other 10-24-2022 10:00-0400Diastolic blood msfablbw23 mm[Hg] Amanda Logan Other [facility] Other 10-24-2022 10:00-0400Systolic blood eeosetux186 mm[Hg] Amanda Logan Other [place] [employer] Other 05-17-2022 14:38-0400Blood Pressure LocationSamir Thompson [facility]05-17-2022 14:38-0400 Diastolic blood ihcltaad72 mm[Hg]Samir Thompson [facility]05-17-2022 14:38-0400Heart rate61 /minSamir Thompson [facility]05-17-2022 14:38-0400 Respiratory rate18 /minSamir Thompson [facility]05-17-2022 14:38-9754LrG1% (BldA) [Mass fraction]100 %Samir Thompson [facility]05-17-2022 14:38-0400 Systolic blood eagimuoo783 mm[Hg]Samir Thompson [facility]04-08-2022 14:39-0400Blood Pressure LocationSamir Thompson [facility]04-08-2022 14:39-0400 Diastolic blood mojkaikc15 mm[Hg]Samir Thompson [facility]04-08-2022 14:39-0400Heart rate65 /minRogean Jay [facility]04-08-2022 14:39-0400 Respiratory rate18 /minSamir [facility]04-08-2022 14:39-8798AeZ5% (BldA) [Mass fraction]100 %Samir Thompson [facility]04-08-2022 14:39-0400 Systolic blood mm[Hg]Samir Thompson [facility]03-31-2022 11:00-0400Body zhwcik808.34 cmArtemioaicha Ponceachenikkie Other [employer] Other 03-31-2022 11:00-0400Body mass index (BMI) [Ratio] 29.15 kg/q5OtwhihutAmanda Hahnr Other [employer] Other 03-31-2022 11:00-0400Body tzuraq72.8 kgAmanda Ponceacher Other [employer] Other 03-31-2022 11:00-0400Diastolic blood rbmhovqi72 mm[Hg] Amanda Ford Other [employer] Other 03-31-2022 11:00-1166UzR7% (BldA) [Mass fraction]98 % Amanda Ford Other [facility] [employer] Other 03-31-2022 11:00-0400Systolic blood lcxtagnf453 mm[Hg] Amanda Ford Other [employer] Other 01-21-2021 08:20-0500Body Afkebrgtait11.7 [degF] [facility], CU59-80-8049 08:20-0500BP Xmfhdfhsl77 mm[Hg] [facility], ZI12-36-9788 08:20-0500BP Kdzzivug453 mm[Hg] [facility], TI60-11-0394 08:20-0500Pulse (Heart Rate)101 /min[facility], EF22-33-7727 08:20-0500Pulse Rdpovxvl47 % [facility], GW71-96-7459 08:20-0500Respiratory Rate19 /min [facility], FS60-02-8250 08:51-0500BMI (Body Mass Index) 58.86 kg/i5IlfrwelMethodist North Hospital, MC26-44-6290 08:51-0500Body weight 191.42 [facility]Method[facility], IH77-59-7163 08:51-1688Jccnrs208.3 cm [facility], AJ03-77-0158 13:30-0500BMI (Body Mass Index) 61.79 kg/m2[address], RZ97-28-1740 13:30-0500Body Zmpqrwpqzcn81.11 [degF][address], OF91-48-8651 13:30-0500Body .94 kgStvz 2 [facility], AR06-94-3732 13:30-0500BP Nreladheg11 mm[Hg][address], VI73-96-3375 13:30-0500BP Lacpzglw504 mm[Hg]Stv[address] [place] [address], AX51-83-7329 13:30-8478Olizhh488.[address] [place] [address], AV44-97-1863 13:30-0500Pulse (Heart Rate)104 /minStvz [address] [place] [address], YJ40-90-4117 13:30-0500Pulse Bctntdqr86 %Stvz [address] [place] [address], IK94-51-1206 13:30-0500 Respiratory Rate18 /minStvz [address] [place] [address], [place] Encounters Encounter DateEncounter TypeCare ProviderFacilityStart: 02-26-2025 End: 99-48-9035Cwvhnqsmc Result EncounterCorey Juan DO Work Phone: noms External Department UnsolicitedStart: 02-26-2025 End: 38-93-4812Omolvalof Result EncounterCorey Juan DO Work Phone: noms External Department UnsolicitedStart: 02-19-2025 End: 35-98-0709Ilejhw flowsheetCorey Juan DO Work Phone: noms [facility] OBGYNStart: 02-19-2025 End: 75-12-1517Wvvdqy flowsheetCorey Juan DO Work Phone: noms [place] OBGYNStart: 02-19-2025 End: 15-08-4834Fgdawkwjo Result EncounterCorey Juan DO Work Phone: noms External Department UnsolicitedStart: 02-19-2025 End: 35-50-0301dckygixhmhLGRTS FAZIONot AvailableStart: 02-19-2025 End: 80-84-4987Rpybyl outpatient visit 15 minutesCorey Juan DO Work Phone: noms [place] OBGYNComment on above:Third trimester ([facility]); 31 weeks gestation of ([facility]); TSH (thyroid-stimulating hormone deficiency); H/O gastric sleeveStart: 02-07-2025 End: 11-41-8106CfqfoaMolly Whitaker Women's Services 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 Bobbin Cleaner - Emily [place]ainesvilleComment on above:Hypothyroidism affecting in second trimester (Primary Dx); headache in second trimester; Previous gastric bypass affecting , antepartum; 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 ([facility])Start: 02-06-2025 End: 99-40-4552Juhyfk outpatient visit 15 minutesJojo OGDEN Work Phone: NOMS [facility] OBGYNComment on above:Third trimester ([facility]); 29 weeks gestation of ([facility])Start: 02-06-2025 End: 02-34-9774yahyeajkvwPLL RAMEYNot AvailableStart: 02-06-2025 End: 78-58-5840Ycurym Shakeel OGDEN Work Phone: [facility] [place] [facility]BGYNStart: 02-06-2025 End: 38-79-6230Whfxfd Shakeel OGDEN Work Phone: [facility] [place] OBGYNStart: 01-30-2025 End: 77-84-8836fauuxpwjdcSPXLIGXI TONYERMalgorzata AvailableStart: 01-16-2025 End: 13-88-0339Ysxwdu Eliecer Duenas IRRIGATION FLUME LAYER Work Phone: [facility] [place] OBGYNStart: 01-16-2025 End: 64-02-8496Ocpicm Eliecer Duenas IRRIGATION FLUME LAYER Work Phone: N[facility] OBGYNStart: 01-16-2025 End: 87-30-4496Xeqncx outpatient visit 15 minutesMima Duenas NP Work Phone: [facility] [place] OBGYNComment on above:26 weeks gestation of ([facility]); Second trimester ([facility]); TSH (thyroid-stimulating hormone deficiency)Start: 01-16-2025 End: 44-79-1689ixnlunnmzlBQPXXIZV EBERLYNot AvailableStart: 01-11-2025 End: 84-83-3742Oqucptcfx Result EncounterCorey Juan DO Work Phone: noms External Department UnsolicitedStart: 01-11-2025 End: 91-70-6732Wuyhqpfmz Result EncounterCorey Juan DO Work Phone: noms External Department UnsolicitedStart: 01-09-2025 End: 78-92-4144Zqtdivsto Result EncounterAmy Kwaku OGDEN Work Phone: noms External Department UnsolicitedStart: 01-09-2025 End: 66-83-6024Rgwnfvrlx Result EncounterAmy Kwaku OGDEN Work Phone: noms External Department UnsolicitedStart: 01-04-2025 End: 64-42-7787Xvybbh Rosanna Dick RNMaternal- Medicine at [facility] HospitalComment on above:Previous gastric bypass affecting , antepartum (Primary Dx); Hypothyroidism affecting in second trimester; 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 ([facility]); Obesity affecting in second trimester, unspecified obesity typeStart: 01-03-2025 End: 38-15-0661ufwwxkhobaKU PCP NO [facility] Ambulatory PPGStart: 01-03-2025 End: 66-06-3682Syanyynky encounterRoslyn Griffin RNMaternal Medicine [facility]Start: 12-19-2024 End: 77-87-6287Ahbzjy flowsheetJojo OGDEN Work Phone: [facility] [place] OBGYNStart: 12-19-2024 End: 84-99-0660Tuzfzi flowsheetJojo OGDEN Work Phone: [facility] OBGYNStart: 12-19-2024 End: 36-87-5179Obrpqz outpatient visit 15 minutesJojo OGDEN Work Phone: N[facility] OBGYNComment on above:22 weeks gestation of ([facility]); Second trimester ([facility]); Thyroid disease ; H/O gastric sleeve; H/O iron deficiency anemia; Diabetes mellitus screeningStart: 12-19-2024 End: 25-03-3272crlflfhfjzVJO RAMEYNot AvailableStart: 12-15-2024 End: 38-90-0886Ttynkfssm Result EncounterCorey Juan DO Work Phone: noms External Department UnsolicitedStart: 12-15-2024 End: 80-76-5277Iemmkcptg Result EncounterCorey Juan DO Work Phone: noms External Department UnsolicitedStart: 12-05-2024 End: 00-25-8673Lnturx consultation new/estab patient [address] Lindquist MD Work Phone: [phone]-Rpdfm Medicine at [facility] Comment on above:20 weeks gestation of (Primary Dx); Previous gastric bypass affecting , antepartum; Obesity affecting in second trimester, unspecified obesity type; Hypothyroidism affecting in second trimester; 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 ([facility]); headache in second trimesterStart: 12-05-2024 End: 65-99-0557Vntzal OnlyChiquita Shen RNMaternal- Medicine at [facility] HospitalComment on above:Previous gastric bypass affecting , antepartum (Primary Dx); Hypothyroidism affecting in second trimester; 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 ([facility]); Obesity affecting in second trimester, unspecified obesity type; Encounter for supervision of resulting from assisted reproductive technology, antepartumStart: 12-04-2024 End: 62-40-9746upkrkmleftPMQOY FAZIONot AvailableStart: 12-02-2024 End: 25-36-2262Lglehpz encounter procedureRichard A Visci DO-[address] [employer] - O/P Start: 12-02-2024 End: 24-39-0042uckoiyngegOnbiyjdl Rohrbacher APRN Work Phone: [facility] Work Phone: Start: 12-02-2024 End: 50-82-5686Jblvqzyh Result EncounterRichard A Visci DO Work Phone: noms External Department UnsolicitedStart: 12-02-2024 End: 17-44-5744Uqqhdeyu Result EncounterRichard A Visci DO Work Phone: [facility] External Department UnsolicitedStart: 12-01-2024 Non-patient / Non-visit([place]) Elizabeth MCDERMOTT-[facility] Work Phone: Start: 11-30-2024 End: 07-19-1148mvlmpgfghtDolidtuc Rohrbacher ELEMENT BURNER Work Phone: [facility] Work Phone: Start: 11-30-2024 End: 62-20-8608Wchmbjbw ReferredChris Chapman DO-LAB [facility] Start: 19-44-7020Cim-patient / Non-visitChris Chapman DO-[facility] Work Phone: Start: 11-20-2024 End: 57-49-9208Ymklir flowsheetCorey Juan DO Work Phone: [facility] [place] OBGYNStart: 11-20-2024 End: 37-42-8394Bdxzxm flowsheetCorey Juan DO Work Phone: noms [facility] OBGYNStart: 11-20-2024 End: 70-63-3128Dajzxsfzm Result EncounterCorey Juan DO Work Phone: noms External Department UnsolicitedStart: 11-20-2024 End: 35-82-3879Aewhdtii Result EncounterCorey Juan DO Work Phone: noms External Department UnsolicitedStart: 11-20-2024 Non-patient / Non-visitCorey Juan-[facility] Work Phone: Start: 11-20-2024 End: 35-70-4165Avdizur encounter procedureCorey Juan DO Work Phone: noms HealthcareStart: 11-20-2024 End: 53-54-8148Gdqborhp preventive med est patient 18-39 yrsCorey Juan DO Work Phone: noms [place] OBGYNComment on above:Well woman exam with routine gynecological exam; Exposure to STD; Second trimester ([facility]); 18 weeks gestation of ([facility]); Need for maternal serum alpha-protein (MSAFP) screening ([facility]); Screening, , for anatomic survey ([facility]); Thyroid diseaseStart: 11-20-2024 End: 95-12-6168rfdxeurydzEHRUW FAZIONot AvailableStart: 83-53-5674Gwp-patient / Non-visitArtemiofito Jayla Chapman DO-[facility] Work Phone: Start: 10-26-2024 End: 79-82-0933Tvcapd OnlyNot In System Ref ProvMaternal- Medicine at [facility] Hospitaltart: 10-22-2024 End: 69-32-2692Rvcwyq outpatient visit 15 minutesCorey Juan DO Work Phone: noms BCP OBComment on above:13 weeks gestation of ([facility]); Second trimester ([facility]); Thyroid disease ; H/O gastric sleeve; H/O iron deficiency anemia; resulting from in vitro fertilization in first trimester ([facility]) Start: 10-22-2024 End: 70-57-3619uwnxjzqmjtWYIVH FAZIONot AvailableStart: 10-18-2024 End: 23-14-5385Uhgvylink department patient visitAmanda Ford ELEMENT BURNER Work Phone: [phone]-Ktmidonza Room Work Phone: Start: 10-10-2024 End: 19-01-3575Xuzcktkzc Result EncounterCorey Juan DO Work Phone: noms External Department UnsolicitedStart: 10-10-2024 End: 22-30-2606Wxvfkmxix Result EncounterCorey Juan DO Work Phone: noms External Department UnsolicitedStart: 09-26-2024 End: 32-04-8495iuulsiezupYtmerhsv MerylrbacherFacility:[facility] HospitalStart: 09-20-2024 End: 88-74-1026Dddzvi outpatient visit 5 minutesNoms Bcp Ob Juan NurseNOMS BCP OBComment on above:GA: 1m4rWcfus: 09-20-2024 End: 94-42-5790stiqscmcnpSVFOW SABBAGHNot AvailableStart: 09-03-2024 End: 89-35-4351Lbrfvlo evaluation of patient and reportUs Tech [facility] Rej Work Phone: Reproductive Endocrinology InfertilityComment on above:Early stage of ([facility])Start: 09-03-2024 End: 95-30-5349ieweoaqpguBUHTIEE G MICKEYFacility:[facility] Start: 08-28-2024 End: 32-24-8311Uoitjoj evaluation of patient and reportUs Tech [facility] Beac Work Phone: Reproductive Endocrinology InfertilityComment on above: resulting from assisted reproductive technology in first trimester ([facility])Start: 08-28-2024 End: 26-45-3648lgsrkuiojyCEXINPF G MICKEYFacility:[facility] Start: 08-24-2024 End: 45-65-4519Elfeehpfm encounterLiliana G David ELEMENT BURNER.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 Work Phone: Reproductive Endocrinology InfertilityComment on above:Patient QuestionStart: 08-23-2024 End: 17-32-3562Exstzqcqb encounterLiliana G David ELEMENT BURNER.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 Work Phone: Reproductive Endocrinology InfertilityComment on above:PainStart: 08-22-2024 End: 46-15-8065Tchfteforrest Sinclair MD Work Phone: noms ENDOCRINOLOGYStart: 08-22-2024 End: 12-49-5383Trfjcaforrest Sinclair MD Work Phone: noms ENDOCRINOLOGYStart: 08-22-2024 End: 09-57-7477Cnygrp outpatient visit 25 minutesDarleen Sinclair MD Work Phone: NOMS SH ENDOCRINOLOGYComment on above:Abnormal thyroid function test (Primary Dx); H/O gastric bypass; 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CMS/HCC); Vitamin D deficiencyStart: 08-22-2024 End: 77-62-9806hjlrtzakghKZWWOSp Andrade AvailableStart: 08-20-2024 End: 32-57-4834Lzzgtpbdqbsy consultation with [place] Hernandez APRN.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 Work Phone: Reproductive Endocrinology InfertilityStart: 08-20-2024 End: 42-06-6535cakcsklrjxOiwzweq G Mickey ELEMENT BURNER.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 Work Phone: Reproductive Endocrinology InfertilityComment on above: 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) (Primary Dx)Start: 08-18-2024 End: 29-32-1486idxrtadlavMzfneuy G Mickey ELEMENT BURNER.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 Work Phone: Reproductive Endocrinology InfertilityComment on above:UltrasoundStart: 08-17-2024 End: 09-52-5627nbgpzfhwdwJocrddmj RohrbacherFacility:[facility] HospitalStart: 08-16-2024 End: 24-13-3531Cxshvhabm encounterLilimino Hernandez ELEMENT BURNER.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 Work Phone: Reproductive Endocrinology InfertilityComment on above:positive for pregnancyStart: 08-15-2024 End: 92-82-6240Mbybgjryv encounterLilimino Hernandez ELEMENT BURNER.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 Work Phone: Reproductive Endocrinology InfertilityComment on above:Patient QuestionStart: 08-15-2024 End: 36-42-2093toqjehyaikDbjhvif G MickeyFacility:[facility] HospitalStart: 08-13-2024 End: 66-83-1462shhvbomponWtmrrrr G MickeyFacility:[facility] HospitalStart: 07-31-2024 End: 88-71-5024xfbtvrlbplZVJFUudreins:[facility] HospitalStart: 07-31-2024 End: 49-72-7007Einhpkf encounter procedureAndrology Material Engineer Work Phone: [facility] Andrology LaboratoryComment on above: Procreative management (Primary Dx)Start: 07-30-2024 End: 94-23-1304Qwlmoqzde encounterMelodie Hernandez ELEMENT BURNER.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 Work Phone: Reproductive Endocrinology InfertilityComment on above:Patient QuestionStart: 07-25-2024 End: 68-14-3591smrmrpimmgCZSNAbgqebdc:[facility] HospitalStart: 07-07-2024 End: 96-57-3251rmhzpvyvsxFEKEIHCF TANTIBHEDHYANGKULFacility:[facility] Hospitaltart: 07-07-2024 End: 61-31-2150Ztfdnvb encounter procedureAndrology Material Engineer Work Phone: [facility] Andrology LaboratoryComment on above: Procreative management (Primary Dx)Encounter for artificial insemination (Primary Dx)Start: 07-06-2024 End: 81-41-2251Scppvmwbf encounterMelodie Hernandez ELEMENT BURNER.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 Work Phone: Reproductive Endocrinology InfertilityComment on above:Patient calling back/re iui 07/07 unsureStart: 07-05-2024 End: 29-59-5773Lqancdumw encounterIgnacio Guy MD Work Phone: reproductive Endocrinology InfertilityComment on above:re iui this wknd/has cervical polyp questionStart: 07-04-2024 End: 57-58-8094Gnglkitym encounterMelodie Hernandez ELEMENT BURNER.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 Work Phone: Reproductive Endocrinology InfertilityComment on above:Treatment PlanningStart: 07-04-2024 End: 93-77-0134epekbhwkxiSpwozxa G Mickey ELEMENT BURNER.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 Work Phone: Reproductive Endocrinology InfertilityComment on above:OvulatingStart: 07-04-2024 End: 79-57-1008Ykgdzaq encounter procedureUs Tech [facility] Beac Work Phone: Reproductive Endocrinology InfertilityStart: 07-02-2024 End: 81-96-7789uowoppsemeTFMDMTM MICKEYFacility:[facility] HospitalStart: 06-29-2024 End: 03-47-1080quldjflpxrYVLHHHV MICKEYFacility:[facility] HospitalStart: 06-23-2024 End: 28-42-7764gpwykxjvpkZcfyekw G David ELEMENT BURNER.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 Work Phone: Reproductive Endocrinology InfertilityComment on above:Negative test and possible hematomaStart: 06-09-2024 End: 29-07-9292hrybmbtqzlTCRUCZ ATTARANFacility:[facility] HospitalStart: 06-09-2024 End: 01-43-5236Ydzbgzf encounter procedureAndrology Material Engineer Work Phone: [facility] Andrology LaboratoryComment on above: Procreative management (Primary Dx)Female infertility (Primary Dx)Start: 06-05-2024 End: 33-83-8113kszhcuivcyQfcdpvb G David ELEMENT BURNER.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 Work Phone: Reproductive Endocrinology InfertilityStart: 06-05-2024 End: 49-70-5068Ypscxdy encounter procedureLiliana G Dvaid ELEMENT BURNER.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 Work Phone: Reproductive Endocrinology InfertilityComment on above:IUI appointmentStart: 05-22-2024 End: 27-59-1192tkhlwoxudkOqafblm G David ELEMENT BURNER.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 Work Phone: Reproductive Endocrinology InfertilityComment on above:Progesterone resultsStart: 05-21-2024 End: 89-19-7177xtlvnfdfypUlhnyto G MickeyFacility:[facility]Start: 05-18-2024 End: 52-45-4128osgbhhnzkeTRKUNFO MICKEYFacility:[facility] HospitalStart: 05-09-2024 End: 34-57-0958xkpmbmrpfbOrbfogs G David ELEMENT BURNER.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 Work Phone: Reproductive Endocrinology InfertilityComment on above:Reproductive mgmt, 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)Start: 05-09-2024 End: 48-74-5125Gjnfoiafazez consultation with [place] Hernandez APRN.CNP Work Phone: Reproductive Endocrinology InfertilityStart: 05-06-2024 End: 92-40-3613cofbrxidkePaiwrecBridget Hernandez APRN.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 Work Phone: Reproductive Endocrinology InfertilityComment on above:Consent formStart: 05-02-2024 End: 31-36-3798Jszydrgpankq consultation with Rufino Enriquez PhD Work Phone: [facility] HospitalComment on above:Bipolar 1 disorder (Multi) (Primary Dx); Infertility counselingStart: 05-02-2024 End: 92-61-4840uycyeowdmqNCYJHH Nikole [facility] AmbulatoryStart: 04-26-2024 End: 77-26-2466sykiuuiqtsAbdullcpdSalem City Hospital Work Phone: Start: 04-26-2024 End: 95-72-0055Fzkkmtk encounter procedureC[facility] Health [facility] Work Phone: Start: 04-24-2024 End: 70-51-9658kdvtifpwfyGTYMCEC MICKEYFacility:[facility] Hospitaltart: 04-23-2024 End: 28-53-0044hbwumwhuosDiypkotddSalem City Hospital Work Phone: Start: 04-23-2024 End: 67-81-6592Vwmiazx encounter procedureCone Health Physician 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); Special screening examination for infectious diseases; Encounter for other genetic testing of female for procreative managementStart: 03-09-2024 End: 05-12-0609Bpesdgmdgbjk consultation with [place] Hernandez APRN.CNP Work Phone: Reproductive Endocrinology InfertilityStart: 02-29-2024 End: 87-09-6716uifqppjdheXFTPLWU MICKEYFacility:[facility] Hospitaltart: 02-28-2024 End: 18-54-3117pmobbtentmVGAWKL ATTARANFacility:[facility] Hospitaltart: 02-28-2024 End: 78-42-5333Lwlimjx encounter Ana Rosa Guy MD Work Phone: reproductive Endocrinology InfertilityComment on above: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)Start: 02-27-2024 End: 09-05-8024wsxmyhwisrMcczpfcz Rohrbacher APRN Work Phone: [facility] Work Phone: Start: 02-27-2024 End: 35-64-3823Ylovvbu encounter procedureAmanda Ford APRN Work Phone: [facility] Work Phone: Start: 10-67-8820Vty-patient / Non-visitCone Health Physician [facility] Work Phone: Start: 02-20-2024 End: 17-39-8956Qorkvrk encounter procedureCorey Juan DO Work Phone: noMS HealthcareStart: 02-20-2024 End: 35-54-3184Dgqxmpjm preventive med est patient 18-39 yrsCorey Juan DO Work Phone: noms BCP OBComment on above:Well woman exam with routine gynecological examStart: 02-20-2024 End: 01-22-0355Wvsoiv flowsheetCorey Juan DO Work Phone: noms BCP OBStart: 02-20-2024 End: 22-36-9970Ndziza flowsheetCorey Juan DO Work Phone: NOMS BCP OBStart: 02-20-2024 End: 12-69-6477Zjrfttbnp Result EncounterCorey Juan DO Work Phone: NOM[facility] External Department UnsolicitedStart: 01-17-2024 End: 43-17-5304ywfnwsplqfTZCE Jennifer Rohrbacher Work Phone: [facility] Work Phone: Start: 01-17-2024 End: 46-29-3940Xfwreir encounter procedureMELY Ford Work Phone: [facility] Work Phone: Start: 30-65-7420Xoc-patient / Non-visitAPRTanja Ford Work Phone: [facility] Work Phone: Start: 12-20-2023 End: 60-87-0523apfymwsqfpCBAW Jennifer Rohrbacher Work Phone: [facility] Work Phone: Start: 12-20-2023 End: 73-09-5530Sdouwpb encounter procedureMELY Ford Work Phone: [facility] Work Phone: Start: 17-82-8316cgtearbytxJsfgq Bailey [facility]: 39-17-5222Gfy-patient / Non-visitAPRTanja Ford Work Phone: [facility] Work Phone: Start: 12-07-2023 End: 28-77-9169Utgomanij to same day surgery centerMELY Ford Work Phone: [facility] CenterStart: 12-07-2023 End: 09-57-2387qtruxfpkeeNCMUShima Ford Work Phone: [facility] Work Phone: Start: 12-01-2023 End: 94-19-5964vuqjrzimleHVMT Jennifer Rohrbacher Work Phone: [facility] Work Phone: Start: 12-01-2023 End: 30-23-6332Ykzedfp encounter procedureMELY Ford Work Phone: [facility] Work Phone: Start: 11-28-2023 End: 95-50-5263qqsrvjdcfcRBYEShima Ford Work Phone: [facility] Work Phone: Start: 11-28-2023 End: 58-89-7452Uapzsse encounter procedureMELY Ford Work Phone: [facility]-Pre-Surgical Testing Work Phone: Start: 11-02-2023 End: 70-73-9082Twdircmuh department patient visitAmanda Ford [facility]2023 End: 82-99-2781nmdvwmwxmeEQJJShima Ford Work Phone: [facility] Work Phone: Start: 11-01-2023 End: 73-66-4977Fcvljqv encounter procedureMELY Ford Work Phone: [facility] Work Phone: Start: 10-26-2023 End: 52-39-6728dnwznalzqqBTPU Jennifer Rohrbachenikkie Work Phone: [facility] Work Phone: Start: 10-26-2023 End: 00-71-5568Ohhihig encounter procedureAPRTanja Patel Rosarioacher Work Phone: [facility]-EMG Work Phone: Start: 10-13-2023 End: 47-12-2633pbcadntxtiWutgboalt Regional Med Center Work Phone: Start: 10-13-2023 End: 23-15-6469Ahbchlg encounter procedureChristoph Physician [facility] Work Phone: Start: 57-28-0264Utw-patient / Non-visitChad Physician Group-[place] [employer] Work Phone: Start: 06-08-2023 End: 97-72-6264keqrntvsiaBefxykypbAdena [facility] Work Phone: Start: 06-08-2023 End: 19-45-9883Nntbjlw encounter procedureChad Physician Group-[facility] Work Phone: Start: 05-17-2023 End: 62-94-4160kusyvvgthiAeeashdj Merylrbacher Other [employer] Other Start: 47-68-5078Iyegwa outpatient visit 15 minutes Romeo Bazzi OrthopedicsStart: 73-31-0036Cnbuqkeui encounterJennifer RohrbacherFPG [facility] ClinicStart: 05-17-2023 End: 21-56-4773Xousmmt encounter procedureChad Physician Group-Start: 04-28-2023 End: 88-21-2260exfdlbgnemVjyvvimi Rohrbacher Other [employer] Other Start: 52-70-2028Naikhiehd encounterJennifer RohrbacherFPG [facility] ClinicStart: 04-22-2023 End: 12-97-8942howsewsgriRtdmqyyc Rohrbacher Other [employer] Other Start: 76-41-6649Ixthnqjyp encounterJennifer RohrbacherFPG [facility] ClinicStart: 04-19-2023 End: 10-31-4306uwalabtrirXsyxyamw Rohrbacher Other [employer] Other Start: 21-35-2368Imgjswdkh encounterJennifer RohrbacherFPG [facility] RoadStart: 04-14-2023 End: 64-04-1564npeejaxkewFftiaata Rohrbacher Other [employer] Other Start: 00-92-2185Nntkmugzd encounterJeaicha RohrbacherFPG [facility] ClinicStart: 03-17-2023 End: 60-53-2282uvckvpggskHeife Bailey Other [employer] Other Start: 99-62-3680Fksimscnr encounterRomeo Bazzi OrthopedicsStart: 02-07-2023 End: 92-55-9931katybkbhrpMlnshkof Rohrbacher Other [employer] Other Start: 15-94-9368Nzpwxg outpatient visit 15 minutes Petr [facility] CenteruskyStart: 46-78-2108Piotuicer encounter Amanda ShethrbacherFPG [facility] ClinicStart: 01-27-2023 End: 30-83-3317kpjgkcrawxVdozbrjs Rohrbacher Other [employer] Other Start: 47-08-5820Bvlqudthn encounterJennifer RohrbacherFPG [facility] [place]Start: 01-19-2023 End: 11-21-5976kxvplaunmwXpcvhzkq Rohrbacher Other [employer] Other Start: 04-18-6716Vmgsdsrzz encounterJennifer RohrbacherFPG [facility] ClinicStart: 01-13-2023 End: 71-19-8962yucqclyfanSbahjsce Rohrbacher Other [employer] Other Start: 56-98-5211Rdawiigij encounterJennifer RohrbacherFPG [facility] ClinicStart: 01-10-2023 End: 12-01-0028nrbtloxlwhPukiycgq Rohrbacher Other [employer] Other Start: 44-46-0397Ccsjlnjnt encounterJennifer RohrbacherFPG [facility] ClinicStart: 01-06-2023 End: 70-79-2760vdhpahdmxtRhuvokfg Rohrbacher Other [employer] Other Start: 20-15-7043Cgxzkdjdf encounterJennifer RohrbacherFPG [facility] ClinicStart: 12-27-2022 End: 79-59-0628tddvapnqpdLnobpmf Alireza Other [employer] Other Start: 54-43-0062Viskvp outpatient visit 15 minutes Petr [facility] [place]Start: 11-10-2022 End: 56-34-3934oxkioyiqmoCjtustkk Rohrbacher Other [employer] Other Start: 36-67-7667Skyevcbdx encounterJennifer RohrbacherFPG [facility] [place]kyStart: 10-21-2022 End: 04-59-5734kehkaidjxcLyqnvsnj Rohrbacher Other [employer] Other Start: 82-20-4574Mugcmlwaj encounterJennifer John [facility] HospitalStart: 10-11-2022 End: 27-28-5663wzzkrjmwriExxgqbh Widmer Other [employer] Other Start: 28-81-0213Onoljr consultation new/estab patient 40 minMatthew BimerFPG [facility] [place]kyStart: 09-30-2022 End: 41-67-3533mxoidtvneqWwgwqfcd Rohrbacher Other [employer] Other Start: 73-94-4463Pgrlpo outpatient visit 15 minutes Amanda RosarioangelDanika Family [facility] HospitalStart: 08-25-2022 End: 94-37-6965bmidyaizegZkmzikdt Rohrbacher Other [employer] Other Start: 57-10-7857Haeejp outpatient visit 15 minutes Amanda ShethsarahangelDanika Family [facility] Medical CentertonStart: 08-20-2022 End: 87-10-1181tovkllcbpsWjnzwoji Rohrbacher Other [employer] Other Start: 69-94-9782Pynjco outpatient visit 15 minutes Amanda RosarioangelDanika Family [facility] Medical CentertonStart: 07-19-2022 End: 02-36-1659dlkncljpmlAvjbxezl Rohrbacher Other [employer] Other Start: 40-60-4859Rgipxnxzf encounterJennifer MerylrbacherF Family [facility] Medical CentertonStart: 07-08-2022 End: 90-59-3728vezmfprmsrRvrrfjlf Rohrbacher Other [employer] Other Start: 05-54-5832Muynarbpp encounterAmanda LopezAtlantiCare Regional Medical Center, [facility] CampusStart: 06-23-2022 End: 12-78-0087dvgewkmwgqAARP Jennifer Rohrbacher Work Phone: [facility] Work Phone: Start: 06-23-2022 End: 93-40-8689Avbtpnj encounter procedureAPRTanja Ford Work Phone: [facility]-Lab [place] Work Phone: Start: 06-17-2022 End: 24-68-0084kbhxskokvhRwfbcvrp Rohrbacher Other [place] [employer] Other Start: 42-74-2748Nqstoxdko encounterAmanda FordNosaint mary's health center [employer]rt: 06-16-2022 End: 82-51-8093oqoeehuzxhMFOM Jennifer Rohrbacher Work Phone: [facility] Work Phone: Start: 06-16-2022 End: 38-62-0475Utvetru encounter procedureAPRTanja Amandahina Ford Work Phone: [facility] [place] Work Phone: Start: 06-10-2022 End: 65-51-1474Fcacfeekes and management of inpatientMD Mariam Appiah Work Phone: [facility]-4 [place] [facility] Work Phone: Start: 35-38-7686jjfawalrvpd encounterMD Mariam Appiah Work Phone: [facility] Work Phone: Start: 06-09-2022 End: 79-55-6702szcxdiveqjVR Mariam Appiah Work Phone: [facility] Work Phone: Start: 06-09-2022 End: 20-84-2632Qhwgcuu encounter procedureMD Mariam Appiah Work Phone: [facility]-Lab [place] Work Phone: Start: 04-26-2022 End: 70-15-9123itmcoqezlzYjbgogrp Rohrbacher Other [employer] Other Start: 82-48-9329Cmashigcs encounterArtemionnifer RosarioachenikkieAdvanced Circulatory [employer]rt: 04-23-2022 End: 28-43-7119viubxgmrylLscuhdbp Rohrbacher Other [employer] Other Start: 41-02-7355Xahbmziwr encounterJennifer MerylrbacheSaint John's HospitalPlayerLyncrt: 04-21-2022 End: 40-50-9201Gmvqgsfx ReferredMD Mariam Appiah Work Phone: [facility]-Lab [place] Work Phone: Start: 04-21-2022 End: 22-75-0302rxboivmmvfUA Mariam Appiah Work Phone: [facility] Work Phone: Start: 42-05-8806Qljgek outpatient visit 15 minutes Amanda LopezAtlantiCare Regional Medical Center, [facility] CampusStart: 04-20-2022 End: 97-39-6022napyzrpkmaNddzkyen Rohrbacher Other [employer] Other Start: 53-23-4154Zfpdvngie encounterAmanda ShethrbacherFAtlantiCare Regional Medical Center, [facility] CampusStart: 04-13-2022 End: 30-08-5473xheemqgoqjSfhpyjrv Rohrbacher Other [employer] Other Start: 63-78-0253Fivllmaqr encounterJennifer MerylrbacherNosaint mary's health center [employer]rt: 04-10-2022 End: 68-23-3231Ittnschpi department patient visitMD Mariam Appiah Work Phone: [facility]-Emergency Room Work Phone: Start: 04-08-2022 End: 50-44-7493Yalbbayai department patient visitMD Mariam Appiah Work Phone: [facility]-Emergency Room Work Phone: Start: 03-30-2022 End: 62-62-9236dsyautboduFjfpchiz Rohrbacher Other [employer] Other Start: 81-63-0398Ktwfacgfa encounterJennifer MerylrbacherFSan Ramon [facility] ClintonStart: 03-23-2022 End: 20-27-6197Cthgoaj encounter procedureMD Mariam Appiah Work Phone: [facility] ClintonStart: 03-23-2022 End: 37-30-6685fuilrorinsMogjkurm Rohrbacher Other [employer] Other Start: 94-10-7581Envesx outpatient visit 15 minutes Amanda Lopez Family [facility] ClintonStart: 03-17-2022 End: 27-78-1381jolmmjkpthFjfjknod Rohrbacher Other [employer] Other Start: 48-43-8870Qeskqvixj encounterJennifer MerylrbacherFPG Family [facility] Medical CentertonStart: 02-08-2022 End: 29-35-6549vriswewehwQcpvfixi Rohrbacher Other [employer] Other Start: 42-95-1723Tfoycq outpatient visit 25 minutes Amanda LopezAtlantiCare Regional Medical Center, [facility] CampusStart: 09-01-2021 End: 82-16-1664Dndtrgn encounter Afshan Thompson [facility] Start: 08-25-2021 End: 95-70-0609Qtbgkfu encounter Afshan Thompson [facility] Start: 08-06-2021 End: 96-50-8293Kuycmgi encounter Afshan Thompson [facility] Start: 07-24-2021 End: 28-06-8904Zzfufph encounter Afshan Thompson [facility] Start: 07-23-2021 End: 11-27-3242tophzvqbjhYagqkfma Rohrbacher Other [employer] Other Start: 73-32-9109Lkjmatxkd encounterAmanda FodrFort Bridger EDUS CoStart: 07-16-2021 End: 59-49-3128dcawjszszsOugkzhzi Merylrbacher Other [employer] Other Start: 26-03-9161Qepjmp outpatient new 30 minutes Amanda LopezAtlantiCare Regional Medical Center, [facility] CampusStart: 03-30-2021 End: 56-11-7821Qoyfptjuh department patient visitMARIAM APPIAHOhio State Harding Hospitaltart: 05-06-2020 End: 40-98-3719bdnvzblweeSWDEOBI R JOHNSOhioHealth Grady Memorial Hospital Start: 05-06-2020 End: 89-71-7677Njrsxseqog hospital visit by Magui Olivera Work Phone: stvz 2C Ortho/Med SurgComment on above:Post-op pain (Primary Dx)Start: 05-02-2020 End: 82-10-9819Ufogmko encounter procedureLU Colt [facility] HospitalStart: 05-02-2020 End: 53-67-6459Hvqrilarjc hospital visit by physicianStcdoroteo Covid Screening ScheduleSTCZ Covid ScreeningComment on above:Pre-op testing (Primary Dx)Start: 04-22-2020 End: 98-30-6023ubgccozsxdIQDCGEHWooster Community Hospital Start: 04-22-2020 End: 39-49-7039pgwimwwhriJLNIKWSWooster Community Hospital Start: 04-22-2020 End: 80-95-7173Tzlwukjvtf hospital visit by physicianSfatoumata C-Arm [address] [place] [address] RadiologyComment on above:ArrivedStart: 04-22-2020 End: 30-12-2708Jsetjdbdnj hospital visit by physicianSraisa Pat 2STVZ Pre-Admit Testing Procedures DateProcedureProcedure DetailPerforming ClinicianStart: 09-24-6341QZ OB BPP W NON-STRESSCorey Juan DO Work Phone: Start: 02-09-9762OTG THYROID STIM HORMONECorey Juan DO Work Phone: Start: 45-71-5862Lqqnn dip stick/tablet rgnt non-auto w/o micrscpCorey Juan DO Work Phone: Start: 44-63-1979Kgpbp dip stick/tablet rgnt non-auto w/o micrscpAmy Kwaku OGDEN Work Phone: Start: 74-73-1274Aborb dip stick/tablet rgnt non-auto w/o micrscpMima Duenas NP Work Phone: Start: 85-15-6028FNM THYROID STIM HORMONECorey Juan DO Work Phone: Start: 90-12-0206QDL CBC WITH AUTO DIFFAmy Kwaku OGDEN Work Phone: Start: 08-73-7648GLXJEWW 1 HOURAmy Kwaku OGDEN Work Phone: Start: 68-47-2496Apdtd dip stick/tablet rgnt non-auto w/o micrscpAmy Kwaku OGDEN Work Phone: Start: 48-41-4706EIB UA (CLEAN/CATCH) SOCIAL SERVICES/MICRO IF IND.Les Juan DO Work Phone: Start: 37-19-1580UFO URINE MICROSCOPIC ONLYCorey Juan DO Work Phone: Start: 57-74-8801Acmbk dip stick/tablet rgnt auto w/o microscopyRichard A Visci DO Work Phone: start: 44-23-2104WRTCLVEDI VAGINITIS (HTRX)Les Juan DO Work Phone: Start: 94-46-9708IKP THYROID STIM HORMONECorey Juan DO Work Phone: Start: 13-73-2352Vchqv dip stick/tablet rgnt non-auto w/o micrscpCorey Juan DO Work Phone: Start: 59-05-7290Hjhbp dip stick/tablet rgnt non-auto w/o micrscpCorey Juan DO Work Phone: Start: 90-92-9662TSXXFGHU LAB TESTNot In System Ref ProvStart: 38-42-9695Ihfgbrfn identification testAmanda Ford [employer] Work Phone: Start: 24-51-1052Vpwnxlvudqyjv of growth of fungi Amanda Ford [employer] Work Phone: Start: 76-93-8849Loxdckdwbnz vaginalis detection Amanda Ford [employer] Work Phone: Start: 42-08-2108Qchfj cultureJennifer Logan [employer] Work Phone: Start: 57-48-7594Kumfowoepd ultrasound of gravid uterusArtemionnedmundo Ford [employer] Work Phone: Start: 68-36-8265LOQNQAJU LAB TESTNot In System Ref ProvStart: 16-00-4457EEM TESTCorey Juan DO Work Phone: Start: 10-06-1188Rmlcbnbl rubellaNot In System Ref ProvStart: 18-46-5274Lpltacxp Zak Lindquist MD Work Phone: Start: 40-09-1341Kjxjjjgcxl glycosylated c8zExrdocnj Provider ExternalStart: 04-76-3497CGA 1&2 AB/AG SCREEN (P24 AG)Not In System Ref ProvStart: 57-61-9504Yqbt ia hepatitis b surface antigenNot In System Ref Prov Start: 15-19-5846DUWINZQZ TOTAL(UNKNOWN SYPHILIS STATUS)Not In System Ref Prov Start: 08-88-1294QCWL AND SCREENNot In System Ref ProvStart: 09-21-2024 ULTRASOUND OFFICENot In System Ref ProvStart: 23-32-8875Asrfs dip stick/tablet rgnt non-auto w/o micrscpCorey Juan DO Work Phone: Start: 49-74-2323De preg uterus after 1st trimest / gestationLiliana G David [employer].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 Work Phone: Start: 35-82-0950Gw preg uterus after 1st trimest / gestationLiliana G David [employer].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 Work Phone: Start: 55-67-3669Ne pelvic nonobstetric real-time image Nydia Guy MD Work Phone: start: 77-13-2406Dgennhwh screenLILIANA MICKEYComment on above:Order Comment: Specimen Type: BLOOD SPECIMEN Ordering Facility: [facility] Address: [address] [place], [place] [address]Performed By: #### TSPN #### [facility] [id number] [address] [place] [address] [place] AMERICAStart: 70-61-6848ISJ,APTIMA HPV,AGE GDLN Les Monsivaiso DO Work Phone: Start: 06-83-6316Kdfelkovncp observation [Identifier] in Cervix by Rose Enriquez PhD Work Phone: Start: 61-44-5295WO Shoulder Scope RCR/Biceps Tendon (Right)[employer] Amanda Logan Work Phone: Start: 39-62-0655Wpvnkzss tomography of abdomen and pelvis with contrastMD Mariam Appiah Work Phone: Start: 33-00-7667Hgqzdbhje for occult blood in fecesMD Mariam Appiah Work Phone: Start: 52-85-5234Cpwkh cultureMD Mariam Appiah Work Phone: Start: 77-24-0384Lorit cultureMD Mariam Appiah Work Phone: Start: 83-61-8560Pyfes X-ray of right shoulderMD Mariam Appiah Work Phone: Start: 38-41-5491Svvgu metabolic panel calcium total Rei Montez Work Phone: Start: 67-04-7357Hkiqj count complete auto&auto difrntl wbcMichael A Montez Work Phone: Start: 41-09-4625Nyuhd esophagusGregdriss R Olivera Work Phone: Start: 11-94-2638Unqgx metabolic panel calcium total Rashard R Olivera Work Phone: Start: 00-63-3034Bgihk count complete automatedGregdriss R Olivera Work Phone: Start: 72-38-2403Pvrvc metabolic panel calcium total Rashard R Olivera Work Phone: Start: 60-81-0832Kydbx count complete automatedRashard Olivera Work Phone: Start: 05-06-2020 End: 33-90-2382LPUNTEIXPBT SLEEVE LAPAROSCOPIC ROBOTICRashard Olivera Work Phone: Start: 36-98-4493Llymg test visual color cmprsn methsGlisa Olivera Work Phone: Start: 87-14-6085Aqnoo iv surg pathology gross&microscopic examRashard Olivera Work Phone: Start: 94-50-1090Aoigajakef exam chest 2 viewsRashard Olivera Work Phone: Start: 12-37-4624Nsyup of nicotineRashard Olivera Work Phone: Start: 16-00-0146Xepqx metabolic panel calcium total Rashard Olivera Work Phone: Start: 81-84-8618Yutbt count complete Idania Olivera Work Phone: Start: 94-84-1996Fnscpstnxcm timeRashard Olivera Work Phone: Start: 40-82-5840Ppsqybgnrimigv time partial plasma/whole bloodRashard Olivera Work Phone: Start: 26-39-6797Dir routine ecg w/least 12 lds i&r onlyRashard Olivera Work Phone: Start: 37-66-2126QJX REPORTHpf ScanningCholecystectomy Samir Thompson Comment on above:2016 Plan of Treatment DateCare ActivityDetailAuthorStart: 95-76-5343OOM Vaccine (1 - 1-dose 75+ series)RSV Vaccine (1 - 1-dose 75+ series)[facility]: 2045 Zoster Vaccines (1 of 2)Zoster Vaccines (1 of 2)[facility]Start: 84-19-0268IGpS,Tdap and Td Vaccines (2 - Td or Tdap)DTaP,Tdap and Td Vaccines (2 - Td or Tdap)[facility] SystemStart: 12-25-2032 DTaP/Tdap/Td Vaccines (2 - Td or Tdap)DTaP/Tdap/Td Vaccines (2 - Td or Tdap) [facility]Start: 39-52-7219Rcttz microalbumin profile DTaP,Tdap,Td Vaccine (2 - Td or Tdap)[facility]: 67-23-4395Uxlhlysen for malignant neoplasm of cervixUnUK Healthcare: 99-87-8685Jansr BMI ScreeningAdult BMI ScreeningProAdena Regional Medical Center SystemStart: 32-01-7928Kerpbps ScreeningTobacco ScreeningProCleveland Clinic Union Hospitaltart: 12-05-2025 End: 64-66-0521ER MFM with or without consultUS MFM with or without consult Imaging Routine Previous gastric bypass affecting , antepartum Hypothyroidism affecting in second trimester 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 ([facility]) Obesity affecting in second trimester, unspecified obesity type Encounter for supervision of resulting from assisted reproductive technology, antepartum Expected: 12/05/2025 (Approximate), Expires: 12/05/2025[facility] Work Phone: comment on above:Expected: 12/05/2025 (Approximate), Expires: 12/05/2025Start: 08-21-2025 End: 50-24-2314Vbjolsx encounter procedureNOGOOD SAMARITAN HOSPITALStart: 03-06-2025 End: 88-75-4695Zquadtr encounter ogcwkwspz19/19/2025 10:30 AM EST Routine GUDELIA HERNANDEZ [address] [place] [address] Jojo Ames PA [address] [place], [place] [id number] GUDELIA SHERMANGYNStart: 03-05-2025 End: 50-37-6438Wuavlai encounter lrfluryhp15/18/2025 11:15 AM EST Appointment [facility] - Ultrasound [address] [place] [address] [phone] [facility] - UltrasoundStart: 02-20-2025 End: 73-22-8386Qboltad encounter procedureNOMS BCP OBStart: 02-19-2025 End: 45-06-4294XM biophysical profile w non stress testUS biophysical profile w non stress test Imaging Routine TSH (thyroid-stimulating hormone deficiency) Expected: 02/19/2025 (Approximate), Expires: 08/19/2025[facility] Work Phone: comment on above:Expected: 02/19/2025 (Approximate), Expires: 08/19/2025Start: 02-19-2025 End: 39-75-6084Unuuksj encounter yfhtfkjuh51/04/2025 1:00 PM EST Routine NOMMarixa [place] OBG[facility] [address] [place], [id number] Les Martinez DO [address] [place], [place] [id number] NOMS Ricco OBGYNStart: 02-07-2025 End: 08-33-7073UZ MFM with or without consultUS MFM with or without consult Imaging Routine Hypothyroidism affecting in second trimester headache in second trimester Previous gastric bypass affecting , antepartum 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 ([facility]) Expected: 02/07/2025, Expires: 02/07/2026[facility] Work Phone: comment on above:Expected: 02/07/2025, Expires: 02/07/2026Start: 02-07-2025 End: 57-34-4760Onigyjs encounter dgmtggleq27/23/2025 9:45 AM EDT Appointment [facility] [place] [address] [facility] [address] [place] [address] [phone] Medicine [place]Start: 02-06-2025 End: 95-41-3432Utmywhm encounter procedureNOMS [place] OBGYNComment on above: ArrivedStart: 02-03-2025 End: 79-15-2865CG MFM with or without consultUS MFM with or without consult Imaging Routine Previous gastric bypass affecting , antepartum Hypothyroidism affecting in second trimester 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 ([facility]) Obesity affecting in second trimester, unspecified obesity type Expected: 02/03/2025 (Approximate), Expires: 01/04/2026[facility] Work Phone: comment on above:Expected: 02/03/2025 (Approximate), Expires: 01/04/2026Start: 01-30-2025 End: 65-39-1269Tqiebvjnmidv / ancillary services vjhxyjjeua89/15/2025 2:30 PM EDT Ancillary Procedure [facility] [address] [place] [address] [place] [id number] NOMS Ricco OBGYNStart: 01-16-2025 End: 58-67-0503N[place] for pregnancyUS OB follow up transabdominal approach Imaging Routine TSH (thyroid-stimulating hormone deficiency) Expected: 01/16/2025, Expires: 05/19/2025[facility] Work Phone: comment on above:Expected: 01/16/2025, Expires: 05/19/2025Start: 01-16-2025 End: 48-75-4518Tpulbcc encounter procedureNOMS [place] OBGYNComment on above: ArrivedStart: 01-03-2025 End: 60-41-4297Jmsmmds encounter /18/2025 2:15 PM EDT Appointment [facility] [place] [address] [facility] [facility] [address] [place] [address] [phone] Medicine [place]Start: 12-19-2024 End: 49-10-4439VSS panel - Blood by Automated countCBC Lab Routine Diabetes mellitus screening Expected: 12/19/2024 (Approximate), Expires: 12/19/2025[facility] Work Phone: comment on above:Expected: 12/19/2024 (Approximate), Expires: 12/19/2025Start: 12-19-2024 End: 47-76-7403Pwaitvtmezm of glucose 1 hour after glucose challenge for glucose tolerance testGlucose tolerance, 1 hour Lab Routine Diabetes mellitus screening Expected: 12/19/2024 (Approximate), Expires: 12/19/2025N[facility] HealthcareComment on above:Expected: 12/19/2024 (Approximate), Expires: 12/19/2025Start: 12-19-2024 End: 37-17-3866Pznrygg encounter procedureNOMS [place] OBGYNComment on above: ArrivedStart: 05-85-5967YMREG-19 Vaccine ()COVID-19 Vaccine ()[facility] SystemStart: 03-53-0037Hwejbtxil vaccination [facility] Hospitaltart: 12-05-2024 End: 99-94-8253Qornxpg encounter procedureKindred Hospital Lima US ImagingStart: 12-04-2024 End: 55-56-5885Bncwjafewgbw / ancillary services wgwqqopaza22/19/2025 8:30 AM EDT Ancillary Procedure GUDELIA [place] [facility] [address] [place] [address] [place] [address] QHXF Ricco OBGYNStart: 76-50-9568Doajhvqq admission [facility]: 86-37-4409ZyblpljidProtestant Hospitaltart: 78-91-4819Rknhuoca identified in Urine by CultureUrine Culture [facility] Hospitaltart: 11-30-2024 End: 45-55-4318Nybnr cultureProtestant Hospitaltart: 11-20-2024 End: 57-84-4401Jsvkx fetoprotein, maternalAlpha fetoprotein, maternal Lab Routine Need for maternal serum alpha-protein (MSAFP) screening ([facility]) Expected: 11/20/2024 (Approximate), Expires: 12/21/2024[facility] HealthcareComment on above:Expected: 11/20/2024 (Approximate), Expires: 12/21/2024Start: 11-20-2024 End: 11-88-2081RR for pregnancyUS OB 14+ weeks anatomy scan Imaging Routine Screening, , for anatomic survey ([facility]) Expected: 11/20/2024 (Approximate), Expires: 02/20/2025NOMS HealthcareComment on above:Expected: 11/20/2024 (Approximate), Expires: 02/20/2025Start: 11-20-2024 End: 24-61-3659Gmybdju encounter procedureNOMS BCP OBComment on above:Arrived Start: 10-22-2024 End: 71-94-4257Skmezjl encounter /07/2025 11:20 AM EDT Routine [facility] OB [address] [place] [address] Les Martinez, DO [address] [place] [address] NOMS BCP OBStart: 36-18-9614Huoaqhar identified in Urine by CultureUrine [facility] Start: 95-63-3422Xejozrx CultureGenital [facility] Start: 13-51-8005Ugpjs [facility]art: 10-18-2024 [facility] 09-20-2024 End: 05-46-7060VQM/RhABO/Rh Lab Routine Missed menses , unspecified gestational age Expected: 09/20/2024 (Approximate), Expires: 09/20/2025[facility]OM[facility] HealthcareComment on above:Expected: 09/20/2024 (Approximate), Expires: 09/20/2025Start: 09-20-2024 End: 33-13-9678Mtzsq type and Indirect antibody screen panel - BloodType and screen Lab Routine Missed menses , unspecified gestational age Expected: 09/20/2024 (Approximate), Expires: 09/20/2025[facility] Work Phone: comment on above:Expected: 09/20/2024 (Approximate), Expires: 09/20/2025Start: 09-20-2024 End: 67-23-9391Tswhm of abuse panel - Urine by Screen methodRapid drug screen, urine Lab Routine , unspecified gestational age Encounter for supervision of normal first in first trimester Expected: 09/20/2024 (Approximate), Expires: 09/20/2025N[facility] HealthcareComment on above:Expected: 09/20/2024 (Approximate), Expires: 09/20/2025Start: 09-13-2024 End: 21-95-7533qfrgyydcro46/29/2025 2:30 PM EDT Initial [facility] [address] [address] DAFU BCP OBStart: 09-13-2024 End: 70-78-6135Ihkjozcsavfd / ancillary services iftaazmdog96/29/2025 2:00 PM EDT Ancillary Procedure [facility] [address] [place] [address] BTHU [facility] OBStart: 09-03-2024 End: 44-54-4696Amnqspa evaluation of patient and reportReproductive Endocrinology InfertilityComment on above: scanob scan, non ivfStart: 08-22-2024 End: 281368-khnrlnzhmsvhrz D3 [Mass/volume] in Serum or PlasmaVitamin D 25 hydroxy Lab Routine H/O gastric bypass Vitamin D deficiency Expected: 08/22/2024 (Approximate), Expires: 08/22/2025MS HealthcareComment on above: Expected: 08/22/2024 (Approximate), Expires: 08/22/2025Start: 08-22-2024 End: 65-60-2729Kdluzssya (Vitamin B12) [Mass/volume] in Serum or PlasmaVitamin B12 Lab Routine H/O gastric bypass Expected: 08/22/2024 (Approximate), Expires: 08/22/2025N[facility] HealthcareComment on above:Expected: 08/22/2024 (Approximate), Expires: 08/22/2025Start: 08-22-2024 End: 36-30-4220Xeeesvkf (aka Vitamin B1)Thiamine (aka Vitamin B1) Lab Routine H/O gastric bypass Expected: 08/22/2024 (Approximate), Expires: 08/22/2025N[facility] HealthcareComment on above:Expected: 08/22/2024 (Approximate), Expires: 08/22/2025Start: 08-22-2024 End: 93-49-4956Gvnmbsnmord [Units/volume] in Serum or PlasmaTSH Lab Routine Abnormal thyroid function test Expected: 08/22/2024 (Approximate), Expires: 08/22/2025[facility] HealthcareComment on above:Expected: 08/22/2024 (Approximate), Expires: 08/22/2025Start: 08-22-2024 End: 33-71-8322Pupwcrvqf (T4) free [Mass/volume] in Serum or PlasmaT4, free Lab Routine Abnormal thyroid function test Expected: 08/22/2024 (Approximate), Expires: 08/22/2025[facility] HealthcareComment on above:Expected: 08/22/2024 (Approximate), Expires: 08/22/2025Start: 08-22-2024 End: 39-55-2510Zlkiintwclqwfplr (T3) Free [Mass/volume] in Serum or PlasmaT3, free Lab Routine Abnormal thyroid function test Expected: 08/22/2024 (Approximate), Expires: 08/22/2025[facility] Work Phone: Comment on above:Expected: 08/22/2024 (Approximate), Expires: 08/22/2025Start: 08-22-2024 End: 36-45-7957Gkexvmg encounter muubrzmib75/07/2025 10:00 AM EDT Office Visit [facility] [address] [place] [id number] Darleen Sinclair MD [address] [place] [address] ArrivedASTRIA [facility] ENDOCRINOLOGYComment on above:Arrived Start: 08-20-2024 End: 46-91-5057AZFHOEULN ULTRASOUND WHIOBSTETRIC ULTRASOUND WHI Anc Imaging Routine 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) Expected: 08/20/2024, Expires: 08/20/2025[facility] Work Phone: Comment on above:Expected: 08/20/2024, Expires: 08/20/2025Start: 08-20-2024 End: 74-90-8668ivjznkxmzn99/05/2025 8:30 AM EDT [facility] Reproductive Endocrinology Infertility [address] [place] [address] Melodie Hernandez APRN.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 [address] [place] [address] preg apptReproductive Endocrinology Infertility Comment on above:preg apptStart: 07-07-2024 End: 44-49-5415Uuiurry encounter procedureBuffalo [facility] Comment on above:donor thawiui dStart: 05-09-2024 End: 87-16-2816ymweigshzp38/22/2025 8:00 AM EST [facility] Reproductive Endocrinology Infertility [address] [place] [address] Melodie Hernandez APRN.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 [address], [place] [address] donor sperm teachReproductive Endocrinology InfertilityComment on above:donor sperm teachStart: 57-02-2715Byzuttz referral [facility] Work Phone: Start: 03-11-2024 End: 569074-bapcknjifydxhu D3 [Mass/volume] in Serum or PlasmaVITAMIN D 25 HYDROXY Lab Routine Reproductive mgmt, 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 Expected: 03/11/2024, Expires: 06/10/2024[facility] ClinicComment on above:Expected: 03/11/2024, Expires: 06/10/2024Start: 03-11-2024 End: 56-30-1162RBEKGKI SCREEN, EXPANDEDCARRIER SCREEN, EXPANDED Lab Routine Encounter for other genetic testing of female for procreative management Expected: 03/11/2024, Expires: 06/10/2024[facility] ClinicComment on above: Expected: 03/11/2024, Expires: 06/10/2024Start: 03-11-2024 End: 20-63-7223Zjavvdfuy trachomatis+Neisseria gonorrhoeae DNA [Presence] in Unspecified specimen by AC with probe detectionGONORRHEA/CHLAMYDIA NAAT Lab Routine Special screening examination for infectious diseases Expected: 03/11/2024, Expires: 06/10/2024[facility] ClinicComment on above:Expected: 03/11/2024, Expires: 06/10/2024Start: 03-11-2024 End: 92-89-4343Emirbsaxvwcfvhg IgG Ab [Units/volume] in Serum or PlasmaCMV IGG ANTIBODY BL Lab Routine Special screening examination for infectious diseases Expected: 03/11/2024, Expires: 06/10/2024[facility] ClinicComment on above: Expected: 03/11/2024, Expires: 06/10/2024Start: 03-11-2024 End: 72-31-6262Ybzvjeoqdrssbcy IgM Ab [Units/volume] in Serum or PlasmaCMV IGM AB Lab Routine Special screening examination for infectious diseases Expected: 03/11/2024, Expires: 06/10/2024[facility] ClinicComment on above:Expected: 03/11/2024, Expires: 06/10/2024Start: 03-11-2024 End: 65-64-0905Djvcohkclh A1c in BloodHEMOGLOBIN A1C Lab Routine Reproductive mgmt, 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 Expected: 03/11/2024, Expires: 06/10/2024 [facility]Comment [facility]:Expected: 03/11/2024, Expires: 06/10/2024Start: 03-11-2024 End: 89-37-5262Nczlwvgas B virus core Ab [Presence] in SerumHEPATITIS B CORE ANTIBODY TOTAL Lab Routine Special screening examination for infectious diseases Expected: 03/11/2024, Expires: 06/10/2024[facility] ClinicComment on above: Expected: 03/11/2024, Expires: 06/10/2024Start: 03-11-2024 End: 01-98-6729Tjnxsxuki B virus surface Ag [Presence] in SerumHEPATITIS B SURFACE ANTIGEN Lab Routine Special screening examination for infectious diseases Expected: 03/11/2024, Expires: 06/10/2024[facility] ClinicComment on above:Expected: 03/11/2024, Expires: 06/10/2024Start: 03-11-2024 End: 71-37-4064Hiqnoxslh C virus Ab [Presence] in SerumHEPATITIS C ANTIBODY IA WITH CONFIRMATION Lab Routine Special screening examination for infectious d iseases Expected: 03/11/2024, Expires: 06/10/2024[facility] ClinicComment on above:Expected: 03/11/2024, Expires: 06/10/2024Start: 03-11-2024 End: 50-79-3138LCT 1+2 Ab [Presence] in Serum or Plasma by ImmunoassayHIV 1/2 COMBO WITH REFLEX TO DIFFERENTIATION Lab Routine Special screening examination for infectious diseases Expected: 03/11/2024, Expires: 06/10/2024[facility] ClinicComment on above:Expected: 03/11/2024, Expires: 06/10/2024Start: 03-11-2024 End: 31-54-3567LVMDFOY IGG ANTIBODYRUBELLA IGG ANTIBODY Lab Routine Special screening examination for infectious diseases Expected: 03/11/2024, Expires: 06/10/2024[facility] ClinicComment on above:Expected: 03/11/2024, Expires: 06/10/2024Start: 03-11-2024 End: 93-53-3216SKZCAHCA TREPONEMAL W/REFLEXSYPHILIS TREPONEMAL W/REFLEX Lab Routine Special screening examination for infectious diseases Expected: 03/11/2024, Expires: 06/10/2024[facility] ClinicComment on above:Expected: 03/11/2024, Expires: 06/10/2024Start: 03-11-2024 End: 94-98-7984WSJO + SCREEN PRENATALTYPE + SCREEN Blood Bank Routine Reproductive mgmt, 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 Expected: 03/11/2024, Expires: 06/10/2024[facility] ClinicComment on above:Expected: 03/11/2024, Expires: 06/10/2024Start: 03-11-2024 End: 09-99-7362OCBPYVVZW ZOSTER IGGVARICELLA ZOSTER IGG Lab Routine Special screening examination for infectious diseases Expected: 03/11/2024, Expires: 06/10/2024[facility] Work Phone: Comment on above:Expected: 03/11/2024, Expires: 06/10/2024Start: 03-09-2024 End: 89-88-5605vcyootpzag83/22/2024 10:00 AM EST [facility] Reproductive Endocrinology Infertility [address] [place] [address] Melodie Hernandez APRN.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 [address] [place] [address] Donor sperm teachReproductive Endocrinology InfertilityComment on above:Donor sperm teachStart: 02-20-2024 End: 84-30-0435Ufpzeem encounter cisqpvcgs74/04/2024 2:50 PM EST Office Visit [facility] [address] [place] [id number] Les Martinez, DO [address] [place], [place] [id number] ArrivedNOMS BCP OBComment on above:ArrivedStart: 15-78-4846Ylwdf-19 Vaccine ( season)Covid-19 Vaccine ( season)[facility]: 50-89-6607Innfi-19 Vaccine ( season) Covid-19 Vaccine ( season)[facility]: 58-97-5334Vvhcmkngw vaccinationInfluenza Vaccine (#1)[facility] HealthcareStart: 12-07-2023 End: 38-09-4039ZgviganwoProtestant Hospitaltart: 81-50-9788JowfbsjroMercy Health Fairfield Hospital CenterStart: 90-74-5268DzwsxufnlMercy Health Fairfield Hospital CenterStart: 14-03-4275UbxwjcyazMercy Health Fairfield Hospital CenterStart: 55-10-4955TzwxtnyolProtestant Hospitaltart: 06-11-2022 End: 93-69-3516JqpbbmkxbMercy Health Fairfield Hospital CenterStart: 85-04-8950Vwsbaixe admissionProtestant Hospitaltart: 55-06-8432AnnweqfcxMercy Health Fairfield Hospital CenterStart: 30-12-9867IwlmzmftkProtestant Hospitaltart: 13-77-7889JvxwaeiquProtestant Hospitaltart: 01-47-7489Euridcza identified in Urine by CultureUrine CultureProtestant Hospitaltart: 65-95-2925Ezkbetot identified in Urine by CultureUrine CultureProtestant Hospitaltart: 05-16-2020 End: 48-19-0022Dwuzqn Visit05/16/2020 Office Visit Bariatrics Rashard Olivera, [address] [address] [place] [address] [facility]ille [facility] Invasive Bariatric SurgStart: 05-06-2020 End: 58-88-0620Czdiwleq EncounterST ORComment on above:XI LAPAROSCOPIC ROBOTIC GASTRIC BYPASS BEN-EN-Y, LIVER BIOPSY, EGD- GI UNIT SCHEDULED.Start: 05-02-2020 End: 13-75-5180YKAIYCOVID- Lab Routine Pre-op testing Expected: 05/02/2020, Expires: 05/01/2021[facility] on above:Expected: 05/02/2020, Expires: 05/01/2021tart: 05-02-2020 End: 95-96-7343Whwhun VisitSamaritan [facility] Invasive Bariatric SurgStart: 60-12-6636MLK QnTSH testingToledo Hospital: 19-06-7616Ixlbsoyai vaccinationFlu vaccine (#1)[facility]: 43-54-1259Xymqtavds for malignant neoplasm of cervixTriHealth Good Samaritan Hospitaltart: 27-45-2781XRwJ,Tdap and Td Vaccines (1 - Tdap)DTaP,Tdap and Td Vaccines (1 - Tdap)[facility]: 31-20-7879WDxX/Tdap/Td vaccine (1 - Tdap)DTaP/Tdap/Td vaccine (1 - Tdap)[facility]: 14-69-5291Wnopeerpq B Vaccine (1 of 3 - 19+ 3-dose series) Hepatitis B Vaccine (1 of 3 - 19+ 3-dose series)[facility]: 24-17-3499Tpejymyon B Vaccines (1 of 3 - 19+ 3-dose series)Hepatitis B Vaccines (1 of 3 - 19+ 3-dose series)[facility]: 2014 Urine microalbumin profileDTaP,Tdap,Td Vaccine (1 - Tdap)[facility]: 69-73-0066Zjbsv BMI Follow Up PlanAdult BMI Follow Up PlanNovant Health, [facility] Healthtart: 42-61-7780Qxlnj BMI ScreeningAdult BMI ScreeningNovant Health, [facility]compass Healthtart: 70-86-0092Nkdzmas ScreeningAnxiety ScreeningTriHealth Good Samaritan Hospitaltart: 04-82-1320Qshuvvmkav ScreeningDepression ScreeningTriHealth Good Samaritan Hospitaltart: 30-05-1146Drxizwkku C screeningHepatitis C ScreeningTriHealth Good Samaritan Hospitaltart: 06-73-5905AEP screeningHIV ScreeningTriHealth Good Samaritan Hospitaltart: 56-93-6072NSU screeningHIV screenToledo Hospital: 41-40-9092Eysvstbxl vaccination Varicella Vaccines (1 of 2 - 13+ 2-dose series)[facility] Start: 58-40-3821Rjotzqdjak ScreeningDepression ScreeningMercy Hospital Start: 67-07-7697Daqgopo ScreeningTobacco ScreeningNovant Health, [facility] Healthtart: 31-47-9291NYO vaccine (1 - 2-dose series)HPV vaccine (1 - 2-dose series)[facility]: 51-02-3362PVG Vaccines (1 of 1 - Standard series)MMR Vaccines (1 of 1 - Standard series)[facility]: 51-73-6458Tkyzbrbau vaccine (1 of 2 - 2-dose childhood series)Varicella vaccine (1 of 2 - 2-dose childhood series)[facility]: 29-68-7396Mijzptipc C screeningHepatitis C [facility]: 80-30-9323VHH screening HIV ScreeningBarney Children's Medical Center: 56-39-1146Zexbz panelLipid PanelBarney Children's Medical Center: 98-75-6090Pspuac Adult Physical Yearly Adult PhysicalUnGlenbeigh HospitalaPTT in Platelet poor plasma by Coagulation assayFirelands Regional Medical CenterBacteria identified in Genital specimen by Aerobe cultureLicking Memorial HospitalBacteria identified in Urine by CultureUrine culture Microbiology Routine Missed menses Ordered: 09/20/2024[facility] HealthcareComment on above:Ordered: 09/20/2024alcitriol [Mass/volume] in Serum or PlasmaLicking Memorial HospitalCBC W Auto Differential panel - BloodCBC and differential Lab Routine Missed menses , unspecified gestational age Ordered: 09/20/2024[facility] HealthcareComment on above:Ordered: 09/20/2024HLAMYDIA TRACHOMATIS (GENITO/STI)CHLAMYDIA TRACHOMATIS (GENITO/STI) Lab Routine Exposure to STD Ordered: 11/20/2024[facility] HealthcareComment on above:Ordered: 11/20/2024ontinuous pulse oximetryPulse oximetry, continuous Respiratory Care Routine Every 4hr until discontinued starting 05/06/2020[facility] [place], [place]Comment on above:Every 4hr until discontinued starting 05/06/2020T Abdomen and Pelvis WO and W contrast IV Licking Memorial HospitalCytology Cervical or vaginal smear or scraping studyPap Smear Pathology and Cytology Routine Well woman exam with routine gynecological exam Ordered: 02/20/2024[facility] Healthcare Work Phone: comment on above:Ordered: 02/20/2024Electromyography Licking Memorial HospitalF5 gene mutations found [Identifier] in Blood or Tissue by Molecular genetics method NominalLicking Memorial Hospital Factor VIII: C assayLicking Memorial HospitalGlucose measurement estimated from glycated hemoglobinLicking Memorial HospitalHemoglobin A1c/Hemoglobin.total in [facility] HospitalHemoglobin A1c/Hemoglobin.total in BloodHemoglobin A1c Lab Routine Missed menses , unspecified gestational age Ordered: 09/20/2024[facility] HealthcareComment on above: Ordered: 09/20/2024Hepatitis B virus surface Ag [Presence] in Serum or Plasma by ImmunoassayHepatitis B surface antigen Lab Routine Missed menses , unspecified gestational age Ordered: 09/20/2024[facility] HealthcareComment on above: Ordered: 09/20/2024Hepatitis C virus Ab [Presence] in Serum or Plasma by ImmunoassayHepatitis C antibody Lab Routine Missed menses , unspecified gestational age Ordered: 09/20/2024[facility] HealthcareComment on above:Ordered: 09/20/2024HIV-1/HIV-2 antigen/antibody combination immunoassayHIV-1 and HIV-2 antibodies Lab Routine Missed menses , unspecified gestational age Ordered: 09/20/2024[facility] HealthcareComment on above:Ordered: 09/20/2024INR in Platelet poor plasma by Coagulation assayLicking Memorial Hospital Mullerian inhibiting substance [Mass/volume] in Serum or PlasmaLicking Memorial HospitalNebulizer therapyHHN Treatment Respiratory Care Routine TID until discontinued starting 05/06/2020[facility], [place]Comment on above: TID until discontinued starting 05/06/2020Neisseria gonorrhoeae DNA [Presence] in Unspecified specimen by AC with probe detectionNeisseria gonorrhea DNA probe, direct Lab Routine Exposure to STD Ordered: 11/20/2024[facility] Healthcare Comment on above:Ordered: 11/20/2024Oxygen therapy [Minimum Data Set]Initiate Oxygen Therapy Protocol Respiratory Care Routine Daily until discontinued starting 05/06/2020[facility], KYComment on above:Daily until discontinued starting 05/06/2020atient EducationMercy Health Fairfield Hospital Ctr Work Phone: Patient referralMercy Health Fairfield Hospital Ctr Work Phone: Reagin Ab [Presence] in Serum by RPRRPR Lab Routine Missed menses , unspecified gestational age Ordered: 09/20/2024[facility] HealthcareComment on above:Ordered: 09/20/2024Rubella antibody, IgGRubella antibody, IgG Lab Routine Missed menses , unspecified gestational age Ordered: 09/20/2024[facility] HealthcareComment on above:Ordered: 09/20/2024Spirometry panelIncentive spirometry Respiratory Care Routine Every 2hr while awake until discontinued starting 05/06/2020[facility], KYComment on above:Every 2hr while awake until discontinued starting 05/06/2020URESWAB(R) ADVANCED VAGINITIS PLUS, TMASURESWAB(R) ADVANCED VAGINITIS PLUS, TMA Pathology and Cytology Routine Exposure to STD Ordered: 11/20/2024[facility] Healthcare Work Phone: comment on above:Ordered: 11/20/2024Surgical Pathology Surgical Pathology Lab Routine Release Upon Ordering for 1 Occurrences starting 05/06/2020[place], [place]Comment on above:Release Upon Ordering for 1 Occurrences starting 05/06/2020 End: 08-53-1084Sygomobecsv [Units/volume] in Serum or PlasmaTSH Lab Routine Thyroid disease every 4 weeks for 6 Occurrences starting 11/20/2024 until 11/20/2025[facility] HealthcareComment on above:every 4 weeks for 6 Occurrences starting 11/20/2024 until 11/20/2025Thyrotropin [Units/volume] in Serum or PlasmaTSH Lab Routine TSH (thyroid-stimulating hormone deficiency) Ordered: 01/16/2025[facility] HealthcareComment on above:Ordered: 01/16/2025von Willebrand factor (vWf) Ag [Units/volume] in Platelet poor plasmaLicking Memorial Hospitalvon Willebrand factor (vWf) multimers in Platelet poor plasma by [facility] Ohiovon Willebrand factor (vWf) ristocetin cofactor actual/normal in Platelet poor plasma by Platelet ag [facility] Immunizations Immunization DateImmunizationNotesCare UgnuoounRtrppyps22-47-8699agrrpzv toxoid, reduced diphtheria toxoid, and acellular pertussis vaccine, Melvin Sinclair MD Work Phone: [facility] HospitalJpsgokgqhu54-17-5334TBOSA-58 mRNA-1273 (Moderna) MELY Ford Work Phone: [facility]04-06-2021COVID-19 mRNA-1273 (Moderna)MELY Ford Work Phone: [facility] Payers DatePayer CategoryPayerPolicy [id number] 2023Medicaid [id number] [id number] [id number] 1.2.840.600064.1.13.239.2.7.3.889601.37390-47-3636Znrsdbv [id number] 2..840.1.536147.3.57[id number] 2..840.1.033476.3.57[id number] 2..840.1.828314.3.579.[id number] 2..840.1.047521.3.579.2.02244-80-9493Dvbpyuy99792946 2..840.1.128183.3.579.[id number] 2..840.1.618664.3.579.2.954730-86-0761Tyazwqu18922467 2..840.1.887167.3.579.[id number] 2..840.1.730213.3.57[id number] 2.16.840.1.131137.3.57[id number] 2.840.1.429890.3.579.2.09039-76-7909Klfpayo95803465 2.16.840.1.925311.3.579.2.38210-81-7531Yzvzqxo47360822 2..840.1.994901.3.579.2.42348-43-1432Giszuhh05456480 2.840.1.536346.3.57[id number] 2.840.1.506951.3.579.2.[id number] 2.0.1.822983.3.579.2.00[id number] 2.840.1.378482.3.579.2.614401-04-8845Ddgvsfu468925248 2..1.710638.3.579.2.[id number] 2.0.1.301316.3.579.2.661593-90-7750Oesnrsv52300413 2..1.252300.3.579.2.973061-11-7196Eekhsii30099057 2..1.676162.3.579.2.862185-54-2259Nyfusie48417466 2.0.1.105046.3.579.2.155544-15-8679Hxdddju10848646 2..1.987632.3.579.2.133432-74-4465Yqybsbe16858015 2.840.1.937368.3.579.2.505707-45-9811Joxfrni62358393 2.0.1.511399.3.579.2.534157-65-1578Mpvxinv46195330 2.840.1.333290.3.579.2.514020-52-9272Sxzzfkl41188740 2.0.1.895816.3.579.2.854353-03-1485Gvzhskl75878880 2.16.840.1.616449.3.579.2.758452-04-9877Iezcrlb1792996 2.16.840.1.742808.3.579.2.1259Prlenexate [facility] Claims [id number] 2.16.840.1.318222.12Qsxnbga20003393 2.16.840.1.671875.3.579.2.106Dpzkjny94759327 2.16.840.1.888684.3.579.2.873Koeeroe17369565 2.16.840.1.183449.3.579.2.531 Social History DateTypeDetailFacilityStart: 04-22-2020 End: 48-41-4437Wrryaqz smoking status NHISNever smokerToledo Hospital: 04-22-2020 End: 30-31-5156Igzhoqp use and exposureNever usedToledo Hospital: 04-22-2020 End: 99-44-7180Sgqtjdg intakeCurrent non-drinker of alcohol (finding)[facility]: 07-40-1501Lnj Assigned At BirthNot on [place], [place]Exposure to SARS-CoV-2 (event)Not sureToledo Hospital: 01-17-2023 Tobacco smoking statusNeverMercy Health West Hospital CenterStart: 11-28-2023 End: 39-23-9283Old Assigned At [facility]Fe[facility] Mil[facility] Other Start: 60-62-8644Fhp Assigned At [facility] CenterFeKettering Memorial Hospitaltart: 97-52-0368Xamtiei smoking status NHISCurrent some day smokerProtestant Hospitaltart: 04-18-2023 End: 50-34-4990Wizxted smoking status NHISSmoker (finding)[facility] Hospitaltart: 11-28-2023 End: 96-84-3825Jhvsyox smoking status NHISSmokes tobacco dailyNOMS Healthcare Start: 22-29-2876Djlubuq of tobacco useCigarette SmokerNOMS HealthcareStart: 11-28-2023 End: 74-74-7702Zsbflpjmcb smoked current (pack per day) - Reported0.5NOMS HealthcareStart: 11-28-2023 End: 27-56-4687Clpmblmib beverage intakeEx-drinker (finding)[facility] Start: 21-89-8784Prgzvwc Commentcaffeine: 1-2 cups per day teaNOMS Healthcare Start: 46-94-7805Lturzo identityIdentifies as female gender (finding)[facility] HealthcareStart: 11-21-2014 End: 77-02-8423QcvBkfmhc (finding)[facility] HospitalTobacco smoking status NHISTobacco smoking consumption unknownBelmont ClinicStart: 20-05-0626VnofucmgsJfvxckcvbProtestant Hospitaltart: 10-18-2024 End: 87-87-9022Obaqrur smoking status NHISEx-smoker (finding)[facility] HospitalNEGATED: Highlighted rowCommunity Memorial Hospital Medical Equipment Procedure CodeEquipment CodeEquipment Original TextEquipment IdentifierDates Functional endoscopic sinus surgery (FESS) with sinuplastyBUTTON NASAL SEPTAL 3CMFDAStart: 31-65-1169Scutltuvfx endoscopic sinus surgery (FESS) with sinuplastyBUTTON NASAL SEPTAL 3CMFDAStart: 22-53-6108Ppqbmjfuwa endoscopic sinus surgery (FESS) with sinuplastyBUTTON NASAL SEPTAL 3CMFDAStart: 10-15-2019 Functional endoscopic sinus surgery (FESS) with sinuplastyBUTTON NASAL SEPTAL 3CMFDAStart: 34-68-0199Ksilpjvkcd endoscopic sinus surgery (FESS) with sinuplastyBUTTON NASAL SEPTAL 3CMFDAStart: 21-55-1771Swqybsafwa endoscopic sinus surgery (FESS) with sinuplastyBUTTON NASAL SEPTAL 3CMFDAStart: 10-15-2019 Functional endoscopic sinus surgery (FESS) with sinuplastyBUTTON NASAL SEPTAL 3CMFDAStart: 77-19-0546Tetwxshynx endoscopic sinus surgery (FESS) with sinuplastyBUTTON NASAL SEPTAL 3CMFDAStart: 22-43-0352Qkwnrvvlme endoscopic sinus surgery (FESS) with sinuplastyBUTTON NASAL SEPTAL 3CMFDAStart: 10-15-2019 Functional endoscopic sinus surgery (FESS) with sinuplastyBUTTON NASAL SEPTAL 3CMFDAStart: 98-97-3980Dikqnkrfag endoscopic sinus surgery (FESS) with sinuplastyBUTTON NASAL SEPTAL 3CMFDAStart: 02-04-6310Shdctowpud endoscopic sinus surgery (FESS) with sinuplastyBUTTON NASAL SEPTAL 3CMFDAStart: 10-15-2019 Functional endoscopic sinus surgery (FESS) with sinuplastyBUTTON NASAL SEPTAL 3CMFDAStart: 49-63-8743Lwwstynoas endoscopic sinus surgery (FESS) with sinuplastyBUTTON NASAL SEPTAL 3CMFDAStart: 04-04-0021Favkhcsumg endoscopic sinus surgery (FESS) with sinuplastyBUTTON NASAL SEPTAL 3CMFDAStart: 10-15-2019 Functional endoscopic sinus surgery (FESS) with sinuplastyBUTTON NASAL SEPTAL 3CMFDAStart: 15-10-9822Fgcllficnq endoscopic sinus surgery (FESS) with sinuplastyBUTTON NASAL SEPTAL 3CMFDAStart: 81-83-3516Hxcfcxdkhi endoscopic sinus surgery (FESS) with sinuplastyBUTTON NASAL SEPTAL 3CMFDAStart: 10-15-2019 Functional endoscopic sinus surgery (FESS) with sinuplastyBUTTON NASAL SEPTAL 3CMFDAStart: 06-54-7685Qtqmtffefj endoscopic sinus surgery (FESS) with sinuplastyBUTTON NASAL SEPTAL 3CMFDAStart: 47-53-8679Skgpjcwuxt endoscopic sinus surgery (FESS) with sinuplastyBUTTON NASAL SEPTAL 3CMFDAStart: 10-15-2019 Functional endoscopic sinus surgery (FESS) with sinuplastyBUTTON NASAL SEPTAL 3CMFDAStart: 70-93-7400Hbnkon/ligament bone anchor, non-bioabsorbable ()[id number] FDAStart: 58-48-7222Haxjgh/ligament bone anchor, non-bioabsorbable()[id number] FDA Start: 71-45-4163Gwkdsc/ligament bone anchor, non-bioabsorbable ()[id number] FDAStart: 01-09-3506Jehokr/ligament bone anchor, non-bioabsorbable()[id number] FDAStart: 12-07-2023 Goals DatePatient GoalDesired Activity/StatePersonal health goal Functional Status WdicTrjjqywbqkDyvijxXpznpkvv10-95-4987Nrlarakrhx statusPatient at [facility] Work Phone: [phone]ppjghpc statusPatient at [facility] Work Phone: Mental Status PvfrLaeducveygSwnsxhTvxpuitf83-99-0916Bhptqbujn functionCognitive Status Patient at [facility] Work Phone: [phone] functionCognitive Status Patient at [facility] Work Phone: Clinical Notes 07-16-2021 to 02-19-2025 Note Date & KtqcFjxnPqdwfguf86-98-9217 History of Present illness Narrative* Alana Valverde, YANDEL - 02/19/2025 1:00 PM EST Reason for [...] nursing note reviewed. Exam conducted with a pig sticker present. Vitals: Estimated body mass index is 40.03 kg/m as calculated from the following: Height as of 08/22/24: 5' 11 . Weight as of this encounter: 287 lb. BP: 128/76 No LMP recorded. Patient is . Assessment/Plan ICD-10-CM 1. Third trimester ([facility]) Z34.93 POCT urinalysis dipstick manually resulted 2. 31 weeks gestation of ([facility]) Z3A.31 3. TSH (thyroid-stimulating hormone deficiency) E03.8 [...] of: Les Martinez DO documented in this encounterWright Memorial HospitalMlkvwypjkz28-20-8753 History of Present illness Narrative* MELVI Engle [...] is . Assessment/Plan ICD-10-CM 1. Third trimester ([facility]) Z34.93 2. 29 weeks gestation of ([facility]) Z3A.29 POCT urinalysis dipstick manually resulted Return [...] behalf of: MELVI Engle documented in this encounterWright Memorial HospitalRtxozbvduq17-90-5997 History of Present illness Narrative* Mima Duenas [...] nursing note reviewed. Exam conducted with a pig sticker present. Vitals: Estimated body mass index is 38.49 kg/m as calculated from the following: Height as of 08/22/24: 5' 11 . Weight as of this encounter: 276 lb. BP: 122/80 No LMP recorded. Patient is . ASSESSMENT & PLAN ICD-10-CM 1. 26 weeks gestation of ([facility]) Z3A.26 POCT urinalysis dipstick manually resulted 2. Second trimester ([facility]) Z34.92 3. TSH (thyroid-stimulating hormone [...] of: Mima Duenas NP documented in this encounterWright Memorial HospitalGtgdzugggz20-64-9596 Miscellaneous Notes* Telephone Encounter - Roslyn Griffin RN - 01/03/2025 3:44 PM EDT Called patient to schedule her follow up survey in 4-6 weeks per appointment tracker. No answer left message to call back to schedule the follow up ultrasound. documented in [facility] encounterMer[facility] Telephone encounter Note* Telephone Encounter - Roslyn Griffin RN - 01/03/2025 3:44 PM EDT Called patient to schedule her follow up survey in 4-6 weeks per appointment tracker. No answer left message to call back to schedule the follow up ultrasound. [facility] History of Present illness Narrative* MELVI [...] PLAN ICD-10-CM 1. 22 weeks gestation of ([facility]) Z3A.22 POCT urinalysis dipstick manually resulted 2. Second trimester ([facility]) Z34.92 POCT urinalysis dipstick manually [...] behalf of: MELVI Engle documented in this encounterWright Memorial HospitalCxuzynaoae54-25-5477 History of Present illness Narrative* Enrike Lindquist [...] follows with the behavioral health up in [place] History of migraines. Has been getting some [...] Pee's thyroiditis Hx of iron deficiency anemia [place] product of in vitro fertilization (IVF) Ovarian [...] mouth in the morning., Disp: , Rfl: ez537-uozg-wbgjp acid ( 19) 29 mg iron- 1 [...] Calcium: recommend 1000-1200mg daily; if deficient, recommend 2714-5679 mg PO daily in divided doses Vitamin [...] 5. 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 The outside machinist supervisor should be made awareat the time of [...] Enrike Lindquist MD, FACOG (she/hers) Maternal- Medicine [facility] [address] [place] [address] This document was created with [employer] technology. Though I make every effort to review the dictation as it is transcribed, on occasion the spoken word can be misinterpreted by the technology leading to inappropriate words, phrases, or sentences. This note is addressed to the requesting provider as a consultation for clinical guidance. Specificmedical abbreviations are occasionally used and those are generally approved by the [place]?Board of?Obstetrics and?Gynecology?as well as?Marilee s abbreviations. The above plan of care was based solely on the diagnoses for which a consultation was requested. ?More frequent testing may be indicated based on her other medical/obstetrical conditions. The management of other or medical conditions is beyond the scope of requested consultation and will c ontinue to be followed by the primary tailing hand or primary care provider. Note to patient: [...] CF Have you been seen here at [facility] in a previous ? NA Recent ER visits or hospitalizations? See notes above Bring blood sugar log or meter with you today? (Please bring them with you for every visit at [facility]) NA Flu vaccine (Feb-June)? NA Any concerns that you would like me to mention to the provider today? Questions about glucose testing and her having gastric bypass surgery documented in this encounterMercy Hospital08-05-2025 History of Present illness Narrative* Alana [...] cancer Mother Julieta velarde Obesity Mother Julieta veladre Thyroid disease Mother Julieta velarde Diabetes Father [...] nursing note reviewed. Exam conducted with a pig sticker present. Vitals: Estimated body mass index is [...] gonorrhea DNA probe, direct 3. Second trimester ([facility]) Z34.92 POCT urinalysis dipstick manually resulted 4. 18 weeks gestation of ([facility]) Z3A.18 5. Need for maternal serum alpha-protein (MSAFP) screening ([facility]) Z36.1 Alpha fetoprotein, maternal Alpha fetoprotein, maternal 6. Screening, , for anatomic survey ([facility]) Z36.89 US OB 14+ weeks [...] of: Les Martinez DO documented in this encounterWright Memorial HospitalZvtafvolfe31-86-8670 History of Present illness Narrative* Mima Duenas [...] nursing note reviewed. Exam conducted with a pig sticker present. Vitals: Estimated body mass index is 31.24 kg/m as calculated from the following: Height as of 08/22/24: 5' 11 . Weight as of this encounter: 224 lb. BP: 110/62 No LMP recorded. Patient is . ASSESSMENT & PLAN ICD-10-CM 1. 13 weeks gestation of ([facility]) Z3A.13 POCT urinalysis dipstick manually resulted 2. Second trimester ([facility]) Z34.92 POCT urinalysis dipstick manually resulted 3. Thyroid disease E07.9 4. H/O gastric sleeve Z90.3 5. H/O iron deficiency anemia Z86.2 6. resulting from in vitro fertilization in first trimester ([facility]) O09.811 Return OB: Patient presents [...] History of gastric sleeve willmake referral to MFM. Documented by Mima Duenas NP on behalf of: Les Martinez DO documented in this encounterWright Memorial HospitalClcoxdmalx57-02-6177 Radiology Diagnostic study [facility] [place] [address] [place] [address] Ultrasound Report Signed Patient: Jaz Sanders MR#: [id number] : 1995 Acct:[id number] Age/Sex: 29 / F ADM Date: 5 Loc: ER Room: Type: [facility] ER Attending Dr: Ordering Provider: Kassidy Arriaza [...] Jr., D.ORenae 10/18/2024 2:21 PM Dictation Location: [place] [address] Tech: Natalie Raissa Transcribed By: MAITE 10/18/24 1421 Dictated By: Sravan Dickinson Jr, DO 10/18/24 1419 Signed By: 10/18/24 1421 [facility]06-05-2025 History of Present illness Narrative * Marsha Asif MA - 09/20/2024 2:30 PM EDT Reason for Appointment: Patient ID: Jaz Sanders is a 29 y.o. female who presents for Amenorrhea Patient presents today for a Nurse OB Intake appointment. Patient is 9w2d with a Estimated Date of Delivery: 1/6/26 OB History Para Term AB Living 1 [...] screen, urine; Future Nurse Note: Patient declined [place] at this time. Patient is an IVF from [facility]. OB Intake: Patient presents today for first OB visit. Patients history has been reviewed in great detail including any potential risks. Patient signed consent forms and patient desires testing in both trimesters. Patient currently has no complaints and has been advised to drink 6-8 glasses of water a day, eatno raw or undercooked meat, and stay away from [facility]. Patient has also been advised to [...] by: Marsha Asif MA documented in this encounterWright Memorial HospitalIwqfpijncl20-68-0484 NoteHNO ID: [id number] Author: MELODIE HERNANDEZ APRN.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 Service: ? Author Type: Nurse Practitioner Type: [...] 3. Cycle Day: Last menstrual period: 07/19/2024 [place] Protocol: UNIVERSAL PROTOCOL / SAFETY CHECKLIST Procedure [...] Sanders DATE: September 05, 2024 TIME: 10:45 [facility]05-19-2025 History of Present illness Narrative* Manisha [...] 03, 2024 5:39 PM documented in this encounterHolzer [facility]-2025 NoteHNO ID: [id number] Author: MANISHA WEAVER APRN.CNP Service: ? Author [...] Plan Move on to OB Manisha Weaver APRN.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 September 03, 2024 5:39 [facility]05-15-2025 NoteHNO ID: [id number] Author: MIKEY TORRES MD Service: ? Author Type: Physician Type: Progress Notes Filed: 08/30/2024 16:36 Note Text: Viable ratliff IUP Size equal Date. Plan: patient to follow up with her ob for care. Stacy Banuelos [facility]05-15-2025 History of Present illness Narrative* Mikey [...] scan next week as scheduled Melodie Hernandez APRN.JARROD documented in this encounterHolzer [facility]-13-2025 NoteHNO ID: [id number] Author: MELODIE HERNANDEZ APRN.CNP Service: ? Author [...] scan next week as scheduled Melodie Hernandez APRN.CNPLancaster Municipal Hospital05-09-2025 Telephone encounter Note* Telephone Encounter - [...] open slot. Call to patient needed: no [facility]05-09-2025 Miscellaneous Notes* Telephone Encounter - Melodie Hernandez [...] schedule the patient for the following- Location: [facility] Provider: nurse Visit type: scan Reason for visit/appointment notes: scan Date: 08/28 Time (requested): 1110 If slot is full, please schedule the closest open slot. Call to patient needed: no * Telephone Encounter - Angella Mccarthy - 08/23/2024 10:37 AM EDT Name: Jaz Sanders called today. : 1995 (home) [phone] (cell) Reason for call: pt called today informing the nurse she has been experiencing pain of level 4 from1-10. Pt has been experiencing pain for 2 day. 5 weeks today. The patients preferred pharmacy has been captured for this encounter? Angella Morillo Hospice Administrator documented in this encounterHolzer [facility]-2025 Telephone encounter Note * Telephone Encounter - Arminda Ward RN - 08/24/2024 1:58 PM EDT See 08/23/24 LIBBY Ward RN August 24, 2024 1:58 PM [facility]05-09-2025 Miscellaneous Notes* Telephone Encounter - Arminda Ward RN - 08/24/2024 1:58 PM EDT See 08/23/24 LIBBY Ward RN August 24, 2024 1:58 PM * Telephone Encounter - Manisha Ding - 08/24/2024 11:52 AM EDT Pt would like a call back documented in this encounterHolzer [facility]05-09-2025 Telephone encounter Note * Telephone Encounter - Manisha Ding - 08/24/2024 11:52 AM EDT Pt would like a call back [facility]05-08-2025 Telephone encounter Note* Telephone Encounter - Angella Mccarthy - 08/23/2024 10:37 AM EDT Name: Jaz Sanders called today. : 1995 (home) [phone] (cell) Reason for call: pt called today informing the nurse she has been experiencing pain of level 4 from1-10. Pt has been experiencing pain for 2 day. 5 weeks today. The patients preferred pharmacy has been captured for this encounter? Angella Morillo Hospice Administrator [facility]05-08-2025 Telephone encounter Note* Telephone Encounter - Arminda Ward RN - 08/23/2024 8:53 AM EDT See 08/20 Distance health visit Arminda Ward RN August 23, 2024 8:53 AM [facility]05-08-2025 Miscellaneous Notes* Telephone Encounter - Arminda Ward RN - 08/23/2024 8:53 AM EDT See 08/20 Distance health visit Arminda Ward RN August 23, 2024 8:53 AM documented in this encounterHolzer Medical Center [facility]05-07-2025 History of Present illness Narrative* Darleen Sinclair [...] levothyroxine 50 mcg daily, administered in the in store demonstrator on an empty stomach. There have been [...] 1 year (around 08/22/2025). documented in this encounterWright Memorial HospitalDzhquyqtaz36-49-8455 NoteHNO ID: [id number] Author: MELODIE HERNANDEZ APRN.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 Service: ? Author Type: Nurse Practitioner Type: [...] visit. Either the patient or their legal indirect sales representative has been informed of the [...] providers Schedule with OB: 09/13 Melodie Hernandez APRN.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 August 20, 2024 8:33 AM Please schedule the patient for the following- Location: [place] Provider: nurse Visit type: Reason for visit/appointment notes: scan Date: 09/03 Time (requested): 1040 If slot is full, please schedule the closest open slot. Call to patient needed: no I spent a total of 30 minutes on the date of the service which included preparing to see the patient, rexr-km-yvbn patient care, completing clinical documentation, obtaining and/or [...] be grammatical and typographical errors missed in proofreading.[facility]05-05-2025 History of Present illness Narrative* Melodie Hernandez APRN.CNP - 08/20/2024 8:33 AM EDT Images from [...] visit. Either the patient or their legal indirect sales representative has been informed of the [...] schedule the patient for the following- Location: [place] Provider: nurse Visit type: Reason for visit/appointment notes: scan Date: 09/03 Time (requested): 1040 If slot is full, please schedule the closest open slot. Call to patient needed: no I spent a total of 30 minutes on the date of the service which included preparing to see the patient, dduz-bi-arjm patient care, completing clinical documentation, obtaining and/or [...] errors missed in proofreading. documented in this encounterHolzer Medical [facility]05-01-2025 Telephone encounter Note * Telephone Encounter - Daniel Hanna APRN.CNP - 08/16/2024 5:15 PM EDT Called patient back to phone number listed in [employer]-no answer. Lm for patient to look out for Mychart message. Daniel Hanna APRN.CNP August 16, 2024 5:15 PM [facility]05-01-2025 Miscellaneous Notes* Telephone Encounter - Daniel Hanna APRN.CNP - 08/16/2024 5:15 PM EDT Called patient back to phone number listed in [employer]-no answer. Lm for patient to look out for Mychart message. Daniel Hanna APRN.CNP August 16, 2024 5:15 PM * Telephone Encounter - Angella Mccarthy - 08/16/2024 12:29 PM EDT Name: Jaz Sanders called today. : 1995 (home) [phone] (cell) Reason for call: pt called that she got positive test, she has been having having cramping since last night , it happens every hours for couple minutes. The patients preferred pharmacy has been captured for this encounter? yes Angella Morillo Hospice Administrator documented in this encounterHolzer [facility]05-01-2025 Telephone encounter Note * Telephone Encounter - Angella Mccarthy - 08/16/2024 12:29 PM EDT Name: Jaz Sanders called today. : 1995 (home) [phone] (cell) Reason for call: pt called that she got positive test, she has been having having cramping since last night , it happens every hours for couple minutes. The patients preferred pharmacy has been captured for this encounter? yes Angella Morillo Hospice Administrator [facility]04-30-2025 Telephone encounter Note* Telephone Encounter - Manisha Ding - 08/15/2024 2:10 PM EDT Pt is preg and wants to know if she can take benadryl due to her having hives [facility]04-30-2025 Miscellaneous Notes* Telephone Encounter - Manisha Ding - 08/15/2024 2:10 PM EDT Pt is preg and wants to know if she can take benadryl due to her having hives documented in this encounterHolzer Medical Center [facility]04-15-2025 NoteHNO ID: [id number] Author: DOMINGUEZ BARRY, ? Service: ? Author Type: Sharepoint Consultant Type: Progress Notes Filed: 09/05/2024 22:45 Note Text: IUI Cryobio Donor # [id number] Pre: frozen washed specimen Post: 82 M/ml, 67% Insem # 27.5 millionLancaster Municipal Hospital04-15-2025 NoteHNO ID: [id number] Author: DOMINGUEZ BARRY, ? Service: ? Author Type: Sharepoint Consultant Type: Progress Notes Filed: 07/31/2024 15:26 Note Text: Thaw for IUI. [facility]Clermont [facility]04-[facility]20[facility] History of Present illness Narrative* Dominguez Barry - 07/31/2024 3:25 PM EDT Thaw for IUI. Dominguez Barry documented in this encounterHolzer Medical Center [facility]04-15-2025 NoteHNO ID: [id number] Author: DOMINGUEZ BARRY, ? Service: ? Author Type: Sharepoint Consultant Type: Progress Notes Filed: 09/05/2024 22:45 Note Text: IUI specimen released to provider Dominguez Barry July 31, 2024 3:24 [facility]04-15-2025 NoteHNO ID: [id number] Author: MUSTAPHA TELLO MA Service: ? Author Type: Buffet Runner Type: Progress Notes Filed: 07/31/2024 15:12 Note Text: Patient verified by full name and date of . Jaz Sanders is here today for an IUI. LMP: 07/19/2024 Natural cycle IUI Timed With: Ovulation Predictor Kit , Date: 07/30/2024 Electroplating Laborer offered: Patient declines Mustapha Tello MA July 31, 2024 3:12 [facility]04-14-2025 Telephone encounter Note* Telephone Encounter - Melodie Hernandez APRN.CNP - 07/30/2024 5:58 PM EDT patient's OPK today was dark but not positive Plan: test again tomorrow. if darker, schedule IUI on Tuesday if supervisor varnish than today, schedule IUI the same day Melodie Hernandez APRN.CNP July 30, 2024 6:00 PM [facility]04-14-2025 Miscellaneous Notes* Telephone Encounter - Melodie Hernandez APRN.CNP - 07/30/2024 5:58 PM EDT patient's OPK today was dark but not positive Plan: test again tomorrow. if darker, schedule IUI on Tuesday if supervisor varnish than today, schedule IUI the same day Melodie Hernandez APRN.CNP July 30, 2024 6:00 PM * Telephone Encounter - Manisha Ding - 07/30/2024 3:15 PM EDT N- ivf Pt has questions regarding IUI documented in this encounterHolzer Medical Center [facility]04-14-2025 Telephone encounter Note * Telephone Encounter - Manisha Ding - 07/30/2024 3:15 PM EDT N- ivf Pt has questions regarding IUI [facility]03-23-2025 NoteHNO ID: [id number] Author: NICHELLE GONZALEZ, ? Service: ? Author Type: Sharepoint Consultant Type: Progress Notes Filed: 07/19/2024 07:50 Note Text: IUI Cryobio #[id number] Washed frozen specimen Post: 31 m/ml, 77% Insem#: 10.8 millionLancaster Municipal Hospital03-23-2025 History of Present illness Narrative* Nichelle Gonzalez E - 07/08/2024 8:07 AM EDT IUI Cryobio #[id number] Washed frozen specimen Post: 31 m/ml, 77% Insem#: 10.8 million * Nihcelle Gonzalez - 07/07/2024 10:10 AM EDT IUI specimen released to provider Nichelle Gonzalez July 07, 2024 10:10 AM documented in this encounterHolzer Medical Center [facility]03-22-2025 NoteHNO ID: [id number] Author: NICHELLE GONZALEZ, ? Service: ? Author Type: Sharepoint Consultant Type: Progress Notes Filed: 07/19/2024 07:50 Note Text: IUI specimen released to provider Nichelle Gonzalez July 07, 2024 10:10 [facility]03-22-2025 NoteHNO ID: [id number] Author: MIKEY TORRES MD Service: ? Author [...] Cycle Day: 14 Last menstrual period: 06/24/2024 [place] Protocol: UNIVERSAL PROTOCOL / SAFETY CHECKLIST Procedure [...] by the primary surgeon/proceduralist with assistance. Stacy Banuelos, [facility]03-22-2025 Procedure note* Mikey Torres MD - [...] Cycle Day: 14 Last menstrual period: 06/24/2024 [place] Protocol: UNIVERSAL PROTOCOL / SAFETY CHECKLIST Procedure [...] primary surgeon/proceduralist with assistance. Stacy Banuelos MD [facility]03-22-2025 Procedure note* Mikey Torres MD - 07/07/2024 [...] Cycle Day: 14 Last menstrual period: 06/24/2024 [place] Protocol: UNIVERSAL PROTOCOL / SAFETY CHECKLIST Procedure [...] assistance. Stacy Banuelos MD documented in this encounterHolzer Medical Center [facility]03-22-2025 NoteHNO ID: [id number] Author: NICHELLE GONZALEZ, ? Service: ? Author Type: Sharepoint Consultant Type: Progress Notes Filed: 07/07/2024 09:41 Note Text: Thaw for IUI Nichelle GonzalezLancaster [facility] Hospital03-22-2025 History of Present illness Narrative* Nichelle Gonzalez - 07/07/2024 9:41 AM EDT Thaw for IUI Nichelle Gonzalez documented in this encounterHolzer Medical Center [facility]03-21-2025 Telephone encounter Note * Telephone Encounter - [...] Isaacs PA-C July 06, 2024 3:26 PM [facility]03-21-2025 Miscellaneous Notes* Telephone Encounter - Becki Isaacs PA-C - 07/06/2024 3:24 PM EDT Called the pt back. Pt had an US done 07/04/24--Possible small 4 mm intracervical canal polyp. No other abnormal findings. Advised to move on with IUI tomorrow. FYI: Dr. Guy and Silvia, [place]. Please let me know if any different instructions. Becki Isaacs PA-C July 06, 2024 3:26 PM * Telephone Encounter - Sivan Roberto - 07/06/2024 2:39 PM EDT Patient states she is calling back unsure about if she is okay to proceed with iui tomorrow. Pleasecall patient. documented in this encounterHol[facility] Telephone encounter Note * Telephone Encounter - Sivan Roberto - 07/06/2024 2:39 PM EDT Patient states she is calling back unsure about if she is okay to proceed with iui tomorrow. Pleasecall patient. [facility] Telephone encounter Note* Telephone Encounter - Arminda Ward RN - 07/06/2024 11:17 AM EDT See other TE for 07/04 Arminda Ward RN July 06, 2024 11:17 AM [facility]03-21-2025 Miscellaneous Notes* Telephone Encounter - Arminda Ward [...] to be removed first. documented in this encounterHolzer [facility]03-20-2025 Telephone encounter Note * Telephone Encounter - Sivan Roberto - 07/05/2024 3:02 PM EDT On day 11 now, inquiring about if okay to proceed with iui with cervical polyp. Patient believes itwill be tomorrow or Tuesday for iui- inquiring if polyp needs to be removed first. [facility] Telephone encounter Note* Telephone Encounter - Melodie [...] Hernandez APRN.CNP July 04, 2024 7:30 PM [facility]03-19-2025 Miscellaneous Notes* Telephone Encounter - Melodie Hernandez [...] 04, 2024 7:30 PM documented in this encounterHolzer [facility]03-19-2025 NoteHNO ID: [id number] Author: IGNACIO GUY MD Service: ? Author Type: Physician Type: Progress Notes Filed: 07/04/2024 16:27 Note Text: [facility] History of Present illness Narrative* Ignacio Guy MD - 07/04/2024 4:27 PM EDT 1 documented in this encounterHolzer [facility] Center [facility]02-22-2025 NoteHNO ID: [id number] Author: IGNACIO GUY MD Service: ? Author [...] Cycle Day: 13 Last menstrual period: 05/28/2024 [place] Protocol: UNIVERSAL PROTOCOL / SAFETY CHECKLIST Procedure [...] was discussed with the patient or authorized indirect sales representative. The patient or authorized indirect sales representative has agreed to proceed with the sensitive examination. (Sensitive examination includes inspection and/or palpation of the breasts, pelvis, prostate and anorectal regions) Patient declined pig sticker. Vidhi Sheldon MD IUI IUI Date: 06/09/24 [...] stopped. Will get pelivc scan here at [facility] if not with this IUI prior pt proceeding with another attmept at IUI. Ignacio Guy MD June 09, 2024 12:30 PM SIGNATURE: Vidhi Sheldon MD PATIENT NAME: Jaz Sanders DATE: June 09, 2024 TIME: 12:01 [facility]02-22-2025 Procedure note* Vidhi Sheldon MD - [...] Cycle Day: 13 Last menstrual period: 05/28/2024 [place] Protocol: UNIVERSAL PROTOCOL / SAFETY CHECKLIST Procedure [...] was discussed with the patient or authorized indirect sales representative. The patient or authorized indirect sales representative has agreed to proceed with the sensitive examination. (Sensitive examination includes inspection and/or palpation of the breasts, pelvis, prostate and anorectal regions) Patient declined pig sticker. Vidhi Sheldon MD IUI IUI Date: 06/09/24 [...] stopped. Will get pelivc scan here at [facility] if not with this IUI prior pt proceeding with another attmept at IUI. Ignacio Guy MD June 09, 2024 12:30 PM SIGNATURE: Vidhi Sheldon MD PATIENT NAME: Jaz Sanders DATE: June 09, 2024 TIME: 12:01 PM [facility] Work Phone: 1(117) 457-653802-22-2025 Procedure note* Vidhi Sheldon MD - 06/09/2024 12:01 PM EST WHI JAMEL IUI PROCEDURE NOTE Date: 06/09/2024 Primary Proceduralist: Vidhi hSeldon MD Consents and Labels Consent Signed: Informed Consent obtained and on the chart Labels Verified With Patient: Yes Indications: Jaz Sanders, is a 29 year old No obstetric history on file. female here today for intrauterine insemination. IUI # 1. Cycle Day: 13 Last menstrual period: 05/28/2024 [place] Protocol: UNIVERSAL PROTOCOL / SAFETY CHECKLIST Procedure [...] was discussed with the patient or authorized indirect sales representative. The patient or authorized indirect sales representative has agreed to proceed with the sensitive examination. (Sensitive examination includes inspection and/or palpation of the breasts, pelvis, prostate and anorectal regions) Patient declined pig sticker. Vidhi Sheldon MD IUI IUI Date: 06/09/24 [...] stopped. Will get pelivc scan here at [facility] if not with this IUI prior pt proceeding with another attmept at IUI. Ignacio Guy MD June 09, 2024 12:30 PM SIGNATURE: Vidhi Sheldon MD PATIENT NAME: Jaz Sanders DATE: June 09, 2024 TIME: 12:01 PM documented in this encounterHolzer Medical Center [facility]02-22-2025 NoteHNO ID: [id number] Author: NICHELLE GONZALEZ, ? Service: ? Author Type: Sharepoint Consultant Type: Progress Notes Filed: 06/09/2024 12:30 Note Text: IUI Cryobio #: [id number] Washed frozen sample Post: 42 m/ml, 74% Insem#: 15.5 [facility]02-[facility] History of Present illness Narrative* Nichelle Gonzalez - 06/09/2024 11:52 AM EST IUI Cryobio #: [id number] Washed frozen sample Post: 42 m/ml, 74% Insem#: 15.5 million * Nichelle Gonzalez - 06/09/2024 11:24 AM EST IUI specimen released to provider Nichelle Gonzalez June 09, 2024 11:24 AM documented in this encounterHolzer Medical Center [facility]02-22-2025 NoteHNO ID: [id number] Author: NICHELLE GONZALEZ, ? Service: ? Author Type: Sharepoint Consultant Type: Progress Notes Filed: 06/09/2024 11:48 Note Text: Thaw for IUI [facility]helle E PaulyL[facility]02-22-2025 History of Present illness Narrative* Nichelle Gonzalez - 06/09/2024 11:47 AM EST Thaw for IUI Nichelle Colt Larrykimberly documented in this encounterHolzer Medical Center [facility]02-22-2025 NoteHNO ID: [id number] Author: NICHELLE GONZALEZ, ? Service: ? Author Type: Sharepoint Consultant Type: Progress Notes Filed: 06/09/2024 12:30 Note Text: IUI specimen released to provider Nichelle Gonzalez June 09, 2024 11:24 [facility]01-22-2025 Instructions* Patient Instructions* Melodie Hernandez APRN.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 - 05/09/2024 9:08 AM EST Images from the original note were not included. REPRODUCTIVE ENDOCRINOLOGY AND INFERTILITY DONOR SPERM HANDOUT Donor Sperm Checklist: Complete Next Steps: Progesterone blood test 6-8 days after your LH surge - please let me know the test result when you get it. IUI Procedure consent form - sent to you via mychart today. Please sign when you can. Order sperm Financial Clearance - I sent your chart to the front services agent today. Treatment plan: Natural cycle/IUI x 3 cycles. Please schedule a follow up visit with Dr. Brooks velasco are not after 3 cycles. Sperm Ordering Instructions We need 1 vial per cycle. You will likely need 3-6 vials to establish a . You are welcome to buy more than one and store with the [facility]. Mailing address: Attention: Nichelle Gonzalez [address] [place] [address], [place] [address] Storage at the [facility] is available. Fees are yearly and only start once you are not actively trying. Please ask the financial team ([phone]) for current cost information. Donor Insemination Scheduling Instructions Please call during the first business day of your menstrual cycle to let the front services agent know you will be testing and [...] please call the [place] [address] Available every day, including weekends and holidays (except [place] and New Years.) Weekday IUI scheduling The day you get your LH surge, please call [phone] between 8:00am - 12:00pm to schedule your insemination for the next day. If you call after 12pm, we may not be able to schedule your appointment. IUI s are done by appointment only. You will make 2 appointments -an arrival time and a procedure time. [place]: [address] [place] [address], [address] [place] [address] Available every day, including weekends and holidays (except [place] and New Years.) Available for IUI using fresh and frozen samples. Check in location for sperm wash and IUI: [address] [facility]. The sperm wash takes 60-90 [...] to do another IUI: Call the front services agent to make sure you are financially cleared. Ask to speak to an SKYLAR to confirm your treatment plan. Important phone number: [phone] documented in this encounterHolzer Medical Center [facility]01-22-2025 NoteHNO ID: [id number] Author: MELODIE HERNANDEZ APRN.CNP Service: ? Author [...] visit. Either the patient or their legal indirect sales representative has been informed of the [...] negative donor is a carrier of: CFTR, [id number] Vial types available: IUI and ART Considerations [...] which included preparing to see the patient, grkk-de-tsdv patient care, completing clinical documentation, obtaining and/or [...] medical team. Standard se (more content not included)...[facility] 05-09-2024 History of Present illness Narrative* Melodie Hernandez APRN.CNP - 05/09/2024 8:12 AM EST Images from [...] visit. Either the patient or their legal indirect sales representative has been informed of the [...] them. No double whammies. Sperm bank/donor #: [facility] [employer] [id number] Blood type: A negative CMV Status: negative Genetic carrier considerations: patient Myriad negative donor is a carrier of: CFTR, [id number] Vial types available: IUI and ART Considerations when using this donor: IUI vial recommended Green light Plan: Donor Sperm episode/checklist updated Pending checklist items: Progesterone blood test, IUI consent, order sperm Confirmed best vial type to order: IUI Melodie Hernandez APRN.JARROD May 09, 2024 8:12 AM I spent a total of 60 minutes on the date of the service which included preparing to see the patient, cvvj-aj-lngr patient care, completing clinical documentation, obtaining and/or [...] errors missed in proofreading. documented in this encounterHolzer Medical Center [facility]01-15-2025 History of Present illness Narrative* Nola Enriquez, PhD - 05/02/2024 2:00 PM EST Psychosocial Consultation for Third Alliance Party Reproduction Virtual visit with audio and visual equipment POS 10 No SI, Falls, Tobacco use On May 02, 2024, I met virtually with Jaz and Sravan Sanders. They were referred by Melodie Hernandez at [facility] for their required psychosocial consultation regarding third alliance party reproduction. Relevant History Jaz, 29, and Demetrius, 26, have been together for 8.5 years and for 6.5 years. 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 Demetrius also works at that [employer]. The couple has been trying to conceive [...] Lynda's have already chosen a donor from [facility] in [place]. They chose this donor because heis CMV-, [...] alliance party reproductive option. documented in this [facility] Work Phone: 1(390) 421-919011-24-2024 NoteHNO ID: [id number] Author: MELODIE HERNANDEZ APRN.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 Service: ? Author Type: Nurse Practitioner Type: [...] visit. Either the patient or their legal indirect sales representative has been informed of the [...] Practice cycle Plan: Episode created.Reviewed checklist - Shift Networkhart message sent Practice cycle: recommended OPKs to test for ovulation and timing of IUIs, patient to call with +OPK, confirm ovulation with progesterone level Follow up once checklist is complete to discuss test results and next steps. Melodie Hernandez APRN.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 March 11, 2024 10:42 PM I spent a total of 55 minutes on the date of the service which included preparing to see the patient, bwyl-sc-emyo patient care, completing clinical documentation, obtaining and/or [...] be grammatical and typographical errors missed in proofreading.[facility]11-24-2024 History of Present illness Narrative* Melodie Hernandez APRN.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 - 03/11/2024 10:42 PM EST Images from [...] visit. Either the patient or their legal indirect sales representative has been informed of the [...] Practice cycle Plan: Episode created.Reviewed checklist - Sigma Force message sent Practice cycle: recommended OPKs to [...] which included preparing to see the patient, sqiu-tv-eqen patient care, completing clinical documentation, obtaining and/or [...] errors missed in proofreading. documented in this encounterHolzer Medical Center [facility]11-22-2024 Instructions* Patient Instructions* Melodie Hernandez APRN.CNP - [...] question, please call the office. ~Silvia MELY Hernandez.[facility] [phone] Donor Sperm Checklist Donor Sperm Labs Mandatory [...] Sravan must be present Amanda Gillespie MD ([place]) - [phone] Rani Sims (Filomena Hernandez) - [phone] - virtual visit Nola Destin, - virtual visit Margie Leonard, - [...] date). Please get scheduled with your sales agent financial report service or pcp if needed. Practice with Ovulation Predictor Kit (OPK) First day of full flow is cycle day #1. Start using on ovulation predictor kit on cycle day 10. Use your OPK once a day, in the morning with your second urine of the day. Send in a Cell Guidance Systemshart message when you get a positive OPK. [...] Once your checklist is complete, please call [phone] to get scheduled for a donor sperm follow up appointment. Sperm Bank Website [place] [facility] https://www.cryobank.com/ [facility] https://cryobio.com/ [employer] https://www.cryosinternational.com/ [place] [facility] https://EoPlex Technologies.TheCityGame/ [facility] https://www.Liquid Environmental Solutions.TheCityGame/ [facility] [place] https://www.thespermbank9facts.org/ [place] [facility] https://www.Booktrope.TheCityGame/ [facility] https://www.PacketSled.TheCityGame/ If you would like to start browsing [...] is needed. Test: CPT Code: Blood type 46734 HIV 64326 CMV IgG 64879 CMV IgM 70020 Syphilis 02048 Hepatitis B Surface Ag 75381 Hepatitis B Core Ab, IgG and IgM 21241 Hepatitis C Ab 51800 Rubella 66681 Varicella 09317 Chlamydia 59096 Gonorrhea 30635 For the above tests, reference the diagnosis code of Z11.9 documented in this encounterHolzer Medical Center [facility]11-12-2024 Plan of care note* JAMEL Plan Note [...] for three cycles. They will meet with IRRIGATION FLUME LAYER to review the IUI checklist and sign consents. I spent a total of 45 minutes on the date of the service which included preparing to see the patient, hxza-ve-jtrf patient care, completing clinical documentation, counseling and educating the patient/family/caregiver, and ordering medications, tests, or procedures. Ignacio Guy MD [facility]11-12-[facility]24 Miscellaneous Notes* JAMEL Plan Note - Ignacio [...] for three cycles. They will meet with IRRIGATION FLUME LAYER to review the IUI checklist and sign consents. I spent a total of 45 minutes on the date of the service which included preparing to see the patient, phdv-eo-qlaj patient care, completing clinical documentation, counseling and educating the patient/family/caregiver, and ordering medications, tests, or procedures. Ignacio Guy MD documented in this encounterHolzer Medical Center [facility]11-12-2024 Instructions* Patient Instructions* Ignacio Guy MD - 02/28/2024 2:47 PM EST Dear Jaz Sanders Using donor sperm at the [facility] requires some set up (outlined below). Requirements to use donor sperm at the [facility]: Teaching with JAMEL SKYLAR - please call [phone] to schedule a donor sperm teach with [...] to help with the donor selection process. Ditto Carrier Screen is the test ordered. Processing time takes 2-3 weeks. If your insurance doesn't cover it, the self-pay de oliveira is ~$250. Counselor You and your partner/spouse (if applicable) must see a counselor for a donor sperm assessment. Amanda Gillespie MD ([place]) - [phone] Rani Sims ([place]) - [phone] Doris Lama ([place]) - [phone] Consent form - must be signed by [...] Required Tests Test: CPT Code: Blood type 23426 HIV 24096 CMV IgG 37806 CMV IgM 37837 Syphilis 38657 Hepatitis B Surface Ag 97562 Hepatitis B Core Ab, IgG and IgM 37056 Hepatitis C Ab 59272 Rubella 92098 Varicella 83906 Chlamydia 97161 Gonorrhea 95301 For the above tests, reference the diagnosis code of Z31.49. [employer] Foresight Carrier Screen - [employer] will check coverage for you. For this [...] your test results into consideration. Sperm Bank [facility] [place] [facility] ([place]) [facility] [employer] ([facility] [place]) [facility] [facility] *Do not order any sperm until your checklist is complete. We will review ordering instructions at your follow up visit. Next Steps: Call insurance to verify coverage for donor sperm panel. Schedule donor sperm teach with my nurse practitioner, Silvia Hernandez. Ignacio Guy MD [phone] documented in this encounterHolzer Medical Center [facility]11-12-2024 NoteHNO ID: [id number] Author: IGNACIO GUY MD Service: ? Author [...] OB History Obstetric History No data available ATMOSPHERIC SCIENTIST HISTORY: Patient's last menstrual period was 02/18/2024. 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 They will meet with IRRIGATION FLUME LAYER to review the IUI checklist and sign consents. I spent a total of 45 minutes on the date of the service which included preparing to see the patient, ztdp-em-tljq patient care, completing clinical documentation, counseling and educating the patient/family/caregiver, and ordering medications, tests, or procedures. Ignacio Guy [facility]11-12-2024 History of Present illness Narrative* Ignacio [...] OB History Obstetric History No data available ATMOSPHERIC SCIENTIST HISTORY: Patient's last menstrual period was 02/18/2024. 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 They will meet with IRRIGATION FLUME LAYER to review the IUI checklist and sign consents. I spent a total of 45 minutes on the date of the service which included preparing to see the patient, cduv-ut-qeuy patient care, completing clinical documentation, counseling and educating the patient/family/caregiver, and ordering medications, tests, or procedures. Ignacio Guy MD documented in this encounterHolzer Medical Center [facility]11-11-2024 Evaluation note* Diagnosis Onset Date Resolution Status Admit Date Degenerative superior labral anterior-to -posterior (SLAP) tear of right matthias acuteNovember 2023 2:25pmLaxity of ligamentacuteNovember 2023 2:25pm Multidirectional instability of glenohumeral jointacuteNovember 2023 2:25pmOther instability, right shoulderacuteNovember 2023 2:25pmRight carpal tunnel syndromeacuteNovember 2023 2:25pmStatus post arthroscopy of right shoulderacuteNovember 2023 2:25pmStatus post surgerynoneactive February 27, 2024 2:25pmDegenerative superior labral ganwrtwm-wg-xgmvrunih (SLAP) tear of right shoacuteJanuary 2024 2:29pmLaxity of ligamentacute April 23, 2024 2:29pmMultidirectional instability of glenohumeral jointacute April 23, 2024 2:29pmOther instability, right shoulderacuteJanuary 2024 2:29pmRight carpal tunnel syndromeacuteJanuary 2024 2:29pmStatus post arthroscopy of right shoulderacuteJanuary 2024 2:29pm [facility] Work Phone: 1(700) 648-658911-11-2024 Evaluation note* Diagnosis Onset Date Resolution Status Admit Date Degenerative superior labral anterior-to -posterior (SLAP) tear of right matthias acuteNovember 2023 2:25pmLaxity of ligamentacuteNovember 2023 2:25pm Multidirectional instability of glenohumeral jointacuteNovember 2023 2:25pmOther instability, right shoulderacuteNovember 2023 2:25pmRight carpal tunnel syndromeacuteNovember 2023 2:25pmStatus post arthroscopy of right shoulderacuteNovember 2023 2:25pmStatus post surgerynoneactive February 27, 2024 2:25pmDegenerative superior labral xlmsgitg-mq-qdxikmevk (SLAP) tear of right shoacuteJanuary 2024 2:29pmLaxity of ligamentacute April 23, 2024 2:29pmMultidirectional instability of glenohumeral jointacute April 23, 2024 2:29pmOther instability, right shoulderacuteJanuary 2024 2:29pmRight carpal tunnel syndromeacuteJanuary 2024 2:29pmStatus post arthroscopy of right shoulderacuteJanuary 2024 2:29pmAcute urticariaacute April 26, 2024 8:29amHypothyroidacuteJanuary 2024 8:29amOther chronic painacuteJanuary 2024 8:29am [facility] Work Phone: 1(579) 357-190011-04-2024 History of Present illness Narrative* Marsha Asif [...] Mother Julieta velarde Other (Thyroid Disorder) Mother Jluieta velarde Thyroid disease Mother Julieta velarde Diabetes [...] nursing note reviewed. Exam conducted with a pig sticker present. Vitals: Estimated body mass index is [...] behalf of: TRENT Engle documented in this encounterWright Memorial [id number] Note [id number]09-03-2024 Evaluation note* Diagnosis Onset Date Resolution Status Admit Date Degenerative superior labral anterior-to -posterior (SLAP) tear of right matthias acuteSeptember 2023 10:11amLaxity of ligamentacuteSeptember 2023 10:11amMultidirectional instability of glenohumeral jointacuteSeptember 2023 10:11amOther instability, right shoulderacuteSeptember 2023 10:11am Right carpal tunnel syndromeacuteSeptember 2023 10:11amStatus post arthroscopy of right shoulderacuteSeptember 2023 10:11amStatus post surgery noneactiveSeptember 2023 10:11amDegenerative superior labral pcjbuuhn-jm-rydynsync (SLAP) tear of right shoacuteOctober 2023 11:58am Laxity of ligamentacuteOctober 2023 11:58amMultidirectional instability of glenohumeral jointacuteOctober 2023 11:58amOther instability, right shoulderacuteOctober 2023 11:58amRight carpal tunnel syndromeacuteOctober 2023 11:58amStatus post arthroscopy of right shoulderacuteOctober 2023 11:58amStatus post surgerynoneactiveOctober 2023 11:58amDegenerative superior labral ushyxnec-si-jqwcceeau (SLAP) tear of right shoacuteNovember 2023 2:25pmLaxity of ligamentacuteNovember 2023 2:25pm Multidirectional instability of glenohumeral jointacuteNovember 2023 2:25pmOther instability, right shoulderacuteNovember 2023 2:25pmRight carpal tunnel syndromeacuteNovember 2023 2:25pmStatus post arthroscopy of right shoulderacuteNovember 2023 2:25pmStatus post surgerynoneactive November 2023 2:25pm [facility] Work Phone: 1(516) 836-187807-17-2024 NoteEducation Materials Orthopedics Musculoskeletal Pain Musculoskeletal pain [...] mouth or applied to the skin. Take mcck-xwe-hoqnwgl and prescription medicines only as told by [...] provider. Document Revised: 08/07/2020 Document Reviewed: 07/16/2020 [employer] Patient Education ? 2022 DragonWave.[facility] Regional HospitalYoxfqfdi12-25-5595 Evaluation note* Encounter Date Diagnosis Assessment Notes Treatment Notes Treatment Clinical Notes Apr, Intertrigo (ICD-10 - L30.4) [employer] Other 01-30-2024 Evaluation note* Encounter Date Diagnosis Assessment Notes Treatment Notes Treatment Clinical Notes Apr, Labral tear of shoul tony, right, initial encounter (ICD-10 - S43.431A) Apr,Multidirectional [...] pain of right shoulder (ICD-10 - M25.511) [employer] Other 01-05-2024 Evaluation note* Encounter Date Diagnosis Assessment Notes Treatment Notes Treatment Clinical Notes Apr, Other iron deficiency anemia (IC D-10 - D50.8) [employer] Other 12-28-2023 Evaluation note* Encounter Date Diagnosis Assessment Notes Treatment Notes Treatment Clinical Notes Mar, Vitamin D deficiency (ICD-10 - E 55.9) [employer] Other 10-23-2023 Evaluation note* Encounter Date Diagnosis [...] agreement for this and referral was given. [employer] [facility] Other 09-21-2023 Evaluation note* Encounter Date Diagnosis Assessment Notes Treatment Notes Treatment Clinical Notes Dec, Other iron deficiency anemia (IC D-10 - D50.8) Dec,Low folic acid (ICD-10 - E53.8) [employer] [facility] Other 09-11-2023 Evaluation note* Encounter Date Diagnosis [...] andcontinue to do the exercises for strength. [employer] Other 07-06-2023 Evaluation note* Encounter Date Diagnosis Assessment Notes Treatment Notes Treatment Clinical Notes Oct, Iron deficiency (ICD-10 - E61.1) [facility] [facility] Other 06-26-2023 Evaluation note* Encounter Date Diagnosis [...] symptoms and causing pain down the arm. [employer] Other 06-15-2023 Evaluation note* Encounter Date Diagnosis [...] verbalizes understanding and agrees c tx plan. [employer] Other 05-10-2023 Evaluation note* Encounter Date Diagnosis [...] follow-up if no improvement. She verbalizes understnading. [employer] Other 05-05-2023 Evaluation note* Encounter Date Diagnosis Assessment Notes Treatment Notes Treatment Clinical Notes August, Acquired hypothyroidism (ICD-10 - E03.9) Discussed with pt symptoms and lab resutls. Discussed treatment and evaluation. Referral placed to Dr. Sinclair. August,Hashimoto's disease (ICD-10 - E06.3) [employer] Other 02-24-2023 Progress note Author Farhad [facility] June 11, 2022 1:16pmNote Date/TimeFebruary 2022 1:07pm[place] [address] Hospitalist Progress Note Signed Patient: Jaz Sanders MR#: [id number] : 1995 Acct:[id number] Age/Sex: 27 / F Adm Date: 3 Loc: 4N Room: 5E4846-4 Type: ADM IN Attending Dr: Farhad Gallego [...] days. Patient has an appointment with her VETERANS REHABILITATION COUNSELOR next week. Educated her to go to ED if she continues to have heavy bleeding with symptoms, she verbalized understanding. We will send patient home on iron supplements and docusate as needed for constipation Patient is being discharged today. Documented By: Farhad Gallego MD 06/11/22 1306 Signed By: <Electronically signed by Farhad Gallego MD> 06/11/22 1316 [facility] Work Phone: 1(240) 387-383302-23-2023 History and physical note Author Farhad Gallego [facility] June 10, 2022 6:28pmNote Date/TimeFebruary 2022 5:39pm[place] [address] Hospitalist H&P Signed Patient: Jaz Sanders MR#: [id number] : 1995 Acct:[id number] Age/Sex: 27 / F Adm Date: 3 Loc: Room: [address] [place] [address] Type: ADM INOo Attending Dr: Farhad Gallego MD Copies to: MD Amanda Correa, ELEMENT BURNER, 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~ HPI DATE OF EXAMINATION: 06/10/22 CHIEF COMPLAINT: [...] % (Auto) 41.3 % (.) 06/10/22 14:51 Jewell % (Auto) 6.8 % (.) 06/10/22 14:51 Eos % (Auto) 5.0 % (.) 06/10/22 14:51 Baso % (Auto) 1.8 % (.) 06/10/22 14:51 Nucleat RBC Rel Count 0.1 /100 WBC (0-0.5) 06/10/22 14:51 Neut # (Auto) 2.4 x10E3/uL (1.8-7.7) 06/10/22 14:51 Lymph # (Auto) 2.2 x10E3/uL (1.00-4.8) 06/10/22 14:51 Jewell # (Auto) 0.4 x10E3/uL (0.0-0.8) 06/10/22 14:51 [...] pH 5.5 (5.0-9.0) 06/10/22 15:40 Ur Specific Sterling 1.010 (1.001-1.030) 06/10/22 15:40 Urine Protein Negative [...] code Documented By: Farhad Gallego MD 06/10/22 4529 Signed By: <Electronically signed by Farhad Gallego MD> 06/10/22 9356 [facility] Work Phone: 1(690) 285-511901-04-2023 Evaluation note* Encounter Date Diagnosis Assessment Notes [...] for bleeding. Keep appointment with Dr. Elder. 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 And she has discussed this with Julieta and she had offered her treatement for this. [employer] [facility] Other 11-30-2022 Evaluation note* Encounter Date Diagnosis Assessment Notes Treatment Notes Treatment Clinical Notes Feb, Gastroesophageal ref lux disease without esophagitis (ICD-10 - K21.9) [employer] [facility] Other 10-24-2022 Evaluation note* Encounter Date Diagnosis [...] to trial the ointment. Follow-up as needed. [employer] [facility] Other 05-11-2022 NoteEchocardiology Procedure Exam Date/Time Accession # Ordering Echo Transthoracic 08/25/2021 15:36 EDT [id number] Jay DAVEY, Samir Rivera CPT code 46122 Reason for Exam (Echo Transthoracic Complete) Bradycardia;Other [...] Mariam Salazar MD Transcribed by: kerry Technologist: [facility]04-21-2022 Note Echocardiology Procedure Exam Date/Time Accession # Ordering ECG Stress Exercise 08/06/2021 10:22 EDT [id number] Jay DAVEY, Samir Rivera CPT code 05207 Reason for Exam (ECG Stress Exercise) bradycardia;Other [...] Signed by: Mariam Salazar MD Transcribed by: marixa Technologist: [facility]03-31-2022 Evaluation note* Encounter Date Diagnosis Assessment [...] school on two different occasions.Order faxed to [facility]. Jun,Gastroesophageal reflux disease without esophagitis (ICD-10 - [...] a [employer]. Jun,Former smoker (ICD-10 - Z87.891) [facility] Other Evaluation + Plan note Future Appointments Appointment Date:08/06/2021 09:30:00 AM Scheduled [facility]: [facility] Type:CV Stress (FT) Appointment Date:08/06/2021 11:00:00 AM Scheduled Provider: [facility] Type:CV Holter/Event (FT) Future Scheduled Tests Radiology* Echo Transthoracic Complete 07/24/21 * ECG Stress [facility]06[facility]21 [facility] Future [facility]ments Appointment Date:08/11/2021 10:30:00 AM Scheduled Provider:Samir Thompson MD [facility] Appointment Type:Cardiology Follow Up (FT) [facility] Future Appointments Appointment Date:09/01/2021 02:30:00 PM Scheduled Provider:Samir Thompson MD [facility] Appointment Type:Cardiology Follow Up (FT) [facility] Future Appointments Appointment Date:2022 11:15:00 AM Scheduled Provider:Samir Thompson MD [facility] Appointment Type:Cardiology Follow Up (FT) [facility] noteNo InformationNortEncompass Health [facility] Other Evaluation noteNo assessment information available [facility] Work Phone: Evaluation note* Diagnosis Onset Date Resolution Status Anemia acuteAnxiety and depressionacuteBipolar disorderacuteIron deficiency anemiaacute [facility] Work Phone: evaluation note* Diagnosis Onset Date Resolution Status Abdominal pain acuteChillsacuteConstipationacuteFeveracuteH/O gastric sleeveacuteVomitingacute [facility] Work Phone: Evaluation note* Diagnosis Onset Date Resolution Status [id number] acuteLaxity of ligamentacuteMultidirectional instability of glenohumeral joint acuteNumbness of right handacuteOther instability, right shoulderacute [facility] Work Phone: Evaluation note* Diagnosis Onset Date Resolution Status [id number] acuteLaxity of ligamentacuteMultidirectional instability of glenohumeral joint acuteNumbness of right handacuteOther instability, right shoulderacute LTK-[id number] of ligamentacuteMultidirectional instability of glenohumeral jointacuteNumbness of right handacuteOther instability, right shoulderacuteRight carpal tunnel syndromeacute [facility] Work Phone: Evaluation note* Diagnosis Onset Date Resolution Status [id number] acuteLaxity of ligamentacuteMultidirectional instability of glenohumeral joint acuteNumbness of right handacuteOther instability, right shoulderacute WES-VFYC-[id number] of ligamentacuteMultidirectional instability of glenohumeral jointacuteNumbness of right handacuteOther instability, right shoulderacuteRight carpal tunnel dukgzydsujaqfFEE-SBPC-[id number] of ligamentacuteMultidirectional instability of glenohumeral jointacuteOther instability, right shoulderacuteRight carpal tunnel syndromeacute [facility] Work Phone: Evaluation note* Diagnosis Onset Date Resolution Status [id number] acuteLaxity of ligamentacuteMultidirectional instability of glenohumeral joint acuteNumbness of right handacuteOther instability, right shoulderacute LMF-LJQF-[id number] of ligamentacuteMultidirectional instability of glenohumeral jointacuteNumbness of right handacuteOther instability, right shoulderacuteRight carpal tunnel uvcydfxxquxmpMJF-SLYH-[id number] of ligamentacuteMultidirectional instability of glenohumeral jointacuteOther instability, right shoulderacuteRight carpal tunnel syndromeacute HYX-JZHP-[id number] of ligamentacuteMultidirectional instability of glenohumeral jointacuteOther instability, right shoulderacuteRight carpal tunnel syndromeacuteStatus post arthroscopy of right shoulderacute [facility] Work Phone: Evaluation note* Diagnosis Onset Date Resolution Status [id number] acuteLaxity of ligamentacuteMultidirectional instability of glenohumeral joint acuteNumbness of right handacuteOther instability, right shoulderacuteRight carpal tunnel txoszhitvffimRLD-GZMO-[id number] of ligamentacute Multidirectional instability of glenohumeral jointacuteOther instability, right shoulderacuteRight carpal tunnel zwstzhycgrwdjCHO-WEXT-[id number] of ligamentacuteMultidirectional instability of glenohumeral jointacuteOther instability, right shoulderacuteRight carpal tunnel syndromeacuteStatus post arthroscopy of right shoulderacuteStatus post surgerynoneactive HCA-IHBM-[id number] of ligamentacuteMultidirectional instability of glenohumeral jointacuteOther instability, right shoulderacuteRight carpal tunnel syndromeacuteStatus post arthroscopy of right shoulderacuteStatus post surgery noneactive [facility] Work Phone: Evaluation note* Diagnosis Well woman exam with routine gynecological exam Routine gynecological examination [facility] 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 [facility]* Diagnosis Reproductive mgmt, 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 Special screening examination for infectious diseases Screening examination for unspecified infectious disease Encounter for other genetic testing of female for procreative management documented [facility] this encounter [facility] [place] [facility]* Diagnosis Bipolar 1 disorder (Multi)- Primary Infertility counseling documented in this encounter [facility] Work Phone: Evaluation note* Diagnosis Treatment plan provided- Primary [facility] [place] [facility] Diagnosis Reproductive mgmt, 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 documented [facility] [place] [facility]* Diagnosis Procreative management- Primary Unspecified procreative management documented [facility] [place] [facility]* Diagnosis Female infertility- Primary Female infertility of unspecified origin [facility] Diagnosis Fertility testing- Primary Female infertility Female infertility of unspecified origin [facility] [place] [facility]* Diagnosis Encounter for fertility planning [Z31.89]- Primary Other specified procreative management [facility] [place] [facility]* Diagnosis Encounter for artificial insemination- Primary Artificial insemination documented [facility] [place] [facility]* Diagnosis 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)- Primary [facility] [place] [facility]* Diagnosis 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)- Primary [facility] [place] [facility]* Diagnosis Abnormal thyroid function test- Primary Nonspecific abnormal results of thyroid function study 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 Vitamin D deficiency documented in this encounter [facility]* Diagnosis 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) documented [facility] [place] [facility]* Diagnosis Early stage of (HCC) state, incidental documented [facility] [place] [facility]* Diagnosis Amenorrhea Absence of menstruation 9 weeks gestation of Missed menses , unspecified gestational age Encounter for supervision of normal first in first trimester documented in this encounter [facility] HealthcareEvaluation note* Diagnosis 13 weeks gestation of ([facility]) Second trimester ([facility]) state, incidental Thyroid disease Unspecified disorder of thyroid H/O gastric sleeve H/O iron deficiency anemia resulting from in vitro fertilization in first trimester ([facility]) documented in this encounter [facility] HealthcareEvaluation note* Diagnosis Well woman exam with routine gynecological exam Routine gynecological examination Exposure to STD Second trimester ([facility]) state, incidental 18 weeks gestation of ([facility]) Need for maternal serum alpha-protein (MSAFP) screening ([facility]) Screening, , for anatomic survey ([facility]) Encounter for anatomic survey Thyroid disease Unspecified disorder of thyroid documented in this encounter [facility] HealthcareEvaluation note* Diagnosis Previous gastric bypass affecting , antepartum- Primary Hypothyroidism affecting in second trimester 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 ([facility]) Obesity affecting in second trimester, unspecified obesity type Encounter for supervision of resulting from assisted reproductive technology, antepartum [facility] Diagnosis 20 weeks gestation of - Primary Previous gastric bypass affecting , antepartum Obesity affecting in second trimester, unspecified obesity type Hypothyroidism affecting in second trimester 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 (CMS-HCC) headache in second trimester [facility]* Diagnosis 22 weeks gestation of (HHS-HCC) Second trimester (HHS-HCC) state, incidental Thyroid disease Unspecified disorder of thyroid H/O gastric sleeve H/O iron deficiency anemia Diabetes mellitus screening Screening for diabetes mellitus documented in this encounter [facility] HealthcareEvaluation note* Diagnosis Previous gastric bypass affecting , antepartum- Primary Hypothyroidism affecting in second trimester 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 (CMS-HCC) Obesity affecting in second trimester, unspecified obesity type [facility]* Diagnosis 26 weeks gestation of (HHS-HCC) Second trimester (HHS-HCC) state, incidental TSH (thyroid-stimulating hormone deficiency) Other specified acquired hypothyroidism documented in this encounter [facility] HealthcareEvaluation note* Diagnosis Third trimester (HHS-HCC) state, incidental 29 weeks gestation of (HHS-HCC) documented in this encounter [facility] HealthcareEvaluation note* Diagnosis Hypothyroidism affecting in second trimester- Primary headache in second trimester Previous gastric bypass affecting , antepartum 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 (CMS-HCC) [facility] Diagnosis Third trimester (HHS-HCC) state, incidental 31 weeks gestation of ([facility]) TSH (thyroid-stimulating hormone deficiency) Other specified acquired hypothyroidism H/O gastric sleeve documented in this encounter [facility] general Narrative - Reported* Type Description Date Surgical History cholecystectomy 2014 Surgical History gastric sleeve 2020 [employer] [facility] Other History general Narrative - Reported* Type Description Date Medical History Hypothyroidism Medical HistoryMNGMedical HistoryenuresisMedical Historyextreme obesityMedical HistoryGERD with esophagitisMedical HistoryheadacheMedical HistoryGoiter, nontoxic, multinodularMedical HistoryVitamin D deficiencySurgical History nnsxukxkrqfizsq6417Yuxmpagn Jtzzeyopgnpsbnvknezxwy2509Qbibtqlc Historygastric kihvfa1626Nlwimostgocpogj HistoryAnemia05/2022 [employer] Other Hospital course Narrative No data available for this section [facility] Discharge instructions No data available for this section [facility] Discharge instructions Additional Instructions POSTOPERATIVE INSTRUCTIONS FOR SHOULDER LABRAL REPAIR Romeo Santana DO Orthopedic Surgeon [facility] GENERAL INSTRUCTIONS: Use ice packs to [...] office immediately. Romeo Santana DO Orthopedic Surgeon [facility] Office: [address] [place], [place] [address] Office number: [phone] [facility]bbmwd[facility] Work Phone: Hospital Discharge instructionsAmbulatory Orders* Referral to Allergy/Immunology Time Frame: 04/26/24, Location: None Selected [facility] Work Phone: Hospital Discharge instructions Additional Instructions We evaluated you for your vaginal bleeding in . Your ultrasound was normal, the baby has a good heart rate, measuring at 13 weeks and 1 day. Your cervix was closed. Follow-up closely with your VETERANS REHABILITATION COUNSELOR. Return to the emergency department if you develop any worsening or concerning symptoms.[facility] Work Phone: InstructionsNot on filedocumented in this encounter [email or web address] SystemInstructionsNot on filedocumented in this encounter [facility] [email or web address] SystemInstructions* Attachments The following attachments cannot be sent through Care Everywhere. * Preeclampsia (Malagasy) documented in this encounterProZarfo SystemInstructionsNot on file documented in this encounterProMedior [email or web address] SystemInstructionsNot on file documented in this encounterProRiverview Health InstituteApnaPaisa SystemReason for referral (narrative)No reason for referral information availableUniversity Hospitals [facility] Center Work Phone: Reason for visit Narrative* Consult, Test, Treat (Routine) - ClosedSpecialtyDiagnoses / ProceduresReferred By ContactReferred To ContactREPRODUCTIVE ENDOCRINOLOGY & FERTILITY Diagnoses Encounter for procreative management, unspecified Encounter for other procreative management Procedures ARTIFIC INSEMINATION INTRAUTERIN THAWING CRYOPRESERVED SPERM/SEMEN EACH ALIQUOT Daniel Hanna APRN.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 [address] [place] [address] Phone: tel: fax: Reproductive Endocrinology Infertility [address] [place] [address] Phone: tel: Referral IDStatusReasonStart DateExpiration DateVisits RequestedVisits [id number] Financial Clearance Required - Self Pay Patient Cleared - True Self-Pay required payment collected Do Not Bill Insurance - SP patient [facility] for visit Narrative* Diagnostic Procedure Only (Routine) - AuthorizedSpecialtyDiagnoses / ProceduresReferred By ContactReferred To ContactWINNEBAGO [facility] Diagnoses Fertility testing Procedures PELVIC US WHI US PELVIC NONOBSTETRIC REAL-TIME IMAGE COMPLETE Ignacio Guy MD [address] [place] [address] Phone: tel: fax: [facility] [address] [place] [address] Referral IDStatusReasonStart DateExpiration DateVisits RequestedVisits [id number] Auto-Generated Referral Patient Cleared - True Self-Pay required payment collected Do Not Bill Insurance - SP patient / [facility] for visit Narrative* Consult, Test, Treat (Routine) - ClosedSpecialtyDiagnoses / ProceduresReferred By ContactReferred To Contact REPRODUCTIVE ENDOCRINOLOGY & FERTILITY Diagnoses Encounter for procreative management, unspecified Encounter for other procreative management Procedures THAWING CRYOPRESERVED SPERM/SEMEN EACH ALIQUOT ARTIFIC INSEMINATION INTRAUTERIN Daniel Hanna APRN.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 [address] [place] [address] Phone: tel: fax: Reproductive Endocrinology Infertility [address] [place] [address] Phone: tel: Referral IDStatusReasonStart DateExpiration DateVisits RequestedVisits [id number] Patient Cleared - True Self-Pay required payment collected Do Not Bill Insurance - SP patient / [facility] for visit Narrative* Financial Clearance (Routine) - ClosedSpecialtyDiagnoses / ProceduresReferred By ContactReferred To Contact FINANCE Diagnoses Collect for IUI-D washed sample Procedures THAWING CRYOPRESERVED SPERM/SEMEN EACH ALIQUOT ARTIFIC INSEMINATION INTRAUTERIN FINANCIAL CLEARANCE PHONE CALL Self Financial Clearance Phone Screening [place] [address] Referral IDStatusReasonStart DateExpiration DateVisits RequestedVisits [id number] Financial Clearance Required - Self Pay Patient Cleared - True Self-Pay required payment collected Do Not Bill Insurance - SP patient / [facility] for visit Narrative* Diagnostic Procedure Only (Routine) - ClosedSpecialtyDiagnoses / ProceduresReferred By ContactReferred To Contact [facility] Diagnoses 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) Procedures OBSTETRIC ULTRASOUND WHI US PREG UTERUS AFTER 1ST TRIMEST GESTATION Melodie Hernandez APRN.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 [address] [place] [address] Phone: tel: fax: [place] [address] Referral IDStatusReasonStart DateExpiration DateVisits RequestedVisits [id number] Auto-Generated Referral / [facility] for visit Narrative* Diagnostic Procedure Only (Routine) - ClosedSpecialtyDiagnoses / ProceduresReferred By ContactReferred To Contact [facility] Diagnoses Early stage of (HCC) Procedures OBSTETRIC ULTRASOUND WHI US PREG UTERUS AFTER 1ST TRIMEST GESTATION Melodie Hernandez APRN.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 [address] [place] [address] Phone: tel: fax: [place] [address] Referral IDStatusReasonStart DateExpiration DateVisits RequestedVisits [id number] Auto-Generated Referral / [facility] Advance Directives TypeDate RecordedPatient RepresentativeExplanationACP-Advance DirectiveACP-Power of [...] drive you home after your procedure. Your buggy driver must be 18 years of age [...] questions, call the Pre-Admission Testing Unit at [phone]. Day of Surgery/Procedure As a patient at [facility] you can expect quality medical and nursing care that is centered on your individual needs. Our goal is to make your surgical experience as comfortableas possible . Directions to the Surgery Center [facility] is located at [address] [place] [address]. Please pull into the Emergency parking lot and stop at the major league baseball umpire dotson. We offer free major league baseball umpire service for all our surgery patients, if you choose not to have major league baseball umpire parking we have additional parking across the street.You will enter the facility following the [facility] sign. Please stop at the medical receptionist assistant desk where you will be checked in by the staff. If you have any questions please call [phone]. Transportation after your procedure. You will need a friend or family member to drive you home after your procedure. Your buggy driver must be18 years of age or [...] may shave your face or neck. ? [place] your teeth but do not swallow water. [...] or the day of surgery, please call [phone], or [phone] documented in this encounter* Instructions* Mukesh Montez, [...] 48 hours call the anesthesia department at [phone]. Will you need pain medication? The nerve [...] block please phone the Anesthesiology Department at [phone]. If the phone does not get answered please contact the hospital ball mill operator at [phone] to page the waiter/waitress second class anesthesiologist Discharge Instructions for Bariatric Surgery You had a Laparoscopic Sleeve Gastrectomy (56928) surgery to treat obesity. Recovery from this [...] scheduled appointment, please call the office at [phone]. Call Your Doctor If Any of the [...] AM EST CLINICAL PHARMACY NOTE: MEDS TO [facility] Patient?: No Total # of Prescriptions Filled: 3 The following medications were delivered to the patient: Oxycodone-acetaminophen 5/325 mg tab Cyclobenzaprine 10 mg tab Enoxaparin 60mg /0.6 ml syr Total # of Interventions Completed: 1 Time Spent (min): 60 Additional Documentation:called nurse case manager about the high co-pay on [...] glasses. accompanied patient to unit. * Silvia Chne RN - 05/06/2020 4:33 PM EST Report [...] SHOULDER DI SCUSS SURGERY Reason for Visit [id number] Laxity of ligament Multidirectional instability of glenohumeral joint Numbness of right hand Other instability, right shoulder Chief Complaint OP SP RT SHOULDER DI SCUSS SURGERY R20.0Reason for [id number] Laxity of ligament Multidirectional instability of glenohumeral joint Numbness of right hand Other instability, right shoulder Chief Complaint OP SP RT SHOULDER DI SCUSS SURGERY R20.0 EMG RESULTSReason for [id number] Laxity of ligament Multidirectional instability of glenohumeral joint Numbness of right hand Other instability, right shoulder [id number] Laxity of ligament Multidirectional instability of glenohumeral joint Numbness of right hand Other instability, right shoulder Right carpal tunnel syndrome Chief Complaint OP SP RT SHOULDER DI SCUSS SURGERY R20.0 EMG RESULTS Shoulder painReason for [id number] Laxity of ligament Multidirectional instability of glenohumeral joint Numbness of right hand Other instability, right shoulder [id number] Laxity of ligament Multidirectional instability of glenohumeral joint Numbness of right hand Other instability, right shoulder Right carpal tunnel syndrome Chief Complaint OP SP RT SHOULDER DI SCUSS SURGERY R20.0 EMG RESULTS Shoulder pain H & P RIGHT SHOULDER ARTHROSCOPY 37-06-26Gkiybo for [id number] Laxity of ligament Multidirectional instability of glenohumeral joint Numbness of right hand Other instability, right shoulder [id number] Laxity of ligament Multidirectional instability of glenohumeral joint Numbness of right hand Other instability, right shoulder Right carpal tunnel syndrome [id number] Laxity of ligament Multidirectional instability of glenohumeral joint Other instability, right shoulder Right carpal tunnel syndrome Chief Complaint OP SP RT SHOULDER DI SCUSS SURGERY R20.0 EMG RESULTS Shoulder pain H & P RIGHT SHOULDER ARTHROSCOPY 12-07-23 Shoulder pain Shoulder painReason for [id number] Laxity of ligament Multidirectional instability of glenohumeral joint Numbness of right hand Other instability, right shoulder [id number] Laxity of ligament Multidirectional instability of glenohumeral joint Numbness of right hand Other instability, right shoulder Right carpal tunnel syndrome [id number] Laxity of ligament Multidirectional instability of glenohumeral joint Other instability, right shoulder Right carpal tunnel syndrome Chief Complaint OP SP RT SHOULDER DI SCUSS SURGERY R20.0 EMG RESULTS Shoulder pain H & P RIGHT SHOULDER ARTHROSCOPY 12-07-23 Shoulder pain Shoulder pain 10-14 DAYS POST OPReason for [id number] Laxity of ligament Multidirectional instability of glenohumeral joint Numbness of right hand Other instability, right shoulder [id number] Laxity of ligament Multidirectional instability of glenohumeral joint Numbness of right hand Other instability, right shoulder Right carpal tunnel syndrome [id number] Laxity of ligament Multidirectional instability of glenohumeral joint Other instability, right shoulder Right carpal tunnel syndrome [id number] Laxity of ligament Multidirectional instability of glenohumeral joint Other instability, right shoulder Right carpal tunnel syndrome Status post arthroscopy of right shoulder Chief Complaint R20.0 EMG RESULTS Shoulder pain H & P RIGHT SHOULDER ARTHROSCOPY 12-07-23 Shoulder pain Shoulder pain 10-14 DAYS POST OP R20.0 4 WEEKSReason for [id number] Laxity of ligament Multidirectional instability of glenohumeral joint Numbness of right hand Other instability, right shoulder Right carpal tunnel syndrome [id number] Laxity of ligament Multidirectional instability of glenohumeral joint Other instability, right shoulder Right carpal tunnel syndrome [id number] Laxity of ligament Multidirectional instability of glenohumeral joint Other instability, right shoulder Right carpal tunnel syndrome Status post arthroscopy of right shoulder Status post surgery [id number] Laxity of ligament Multidirectional instability of glenohumeral [...] for Visit Admit Date Degenerative superior labral ahwsiyex-qb-uhnvoaudp (SLAP) tear of right matthias December 20, 2023 10:11am Laxity of ligament December 20, 2023 10:11am Multidirectional instability of glenohum eral joint December 20, 2023 10:11am Other instability, right shoulder Septem 2023 10:11am Right carpal tunnel syndrome December 192023 10:11am Status post arthroscopy of right shoulde r December 20, 2023 10:11am Status post surgery December 20, 2023 10:11am 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 January 17, 2024 11:58am Laxity of ligament January 17, 2024 11 :58am Multidirectional instability of glenohum eral joint January 17, 2024 11:58am Other instability, right shoulder Octobe 2023 11:58am Right carpal tunnel syndrome January 11:58am Status post arthroscopy of right shoulde r January 17, 2024 11:58am Status post surgery January 17, 2024 11 :58am Degenerative superior labral podbgebh-gt-pktrobwdu (SLAP) tear of right matthias February 27, [...] for Visit Admit Date Degenerative superior labral xftxekjk-rh-quyivxlco (SLAP) tear of right matthias February 27, 2024 2:25pm Laxity of ligament February 27, 2024 2:25pm Multidirectional instability of glenohum eral joint February 27, 2024 2:25pm Other instability, right shoulder Novemb er 2023 2:25pm Right carpal tunnel syndrome February 262023 2:25pm Status post arthroscopy of right shoulde r February 27, 2024 2:25pm Status post surgery February 27, 2024 2:25pm Degenerative superior labral jlgmphfs-gh-fxqnijbzw (SLAP) tear of right matthias April 23, [...] for Visit Admit Date Degenerative superior labral alxapyip-vm-qeyhrnjyg (SLAP) tear of right matthias February 27, 2024 2:25pm Laxity of ligament February 27, 2024 2:25pm Multidirectional instability of glenohum eral joint February 27, 2024 2:25pm Other instability, right shoulder Novemb er 2023 2:25pm Right carpal tunnel syndrome February 262023 2:25pm Status post arthroscopy of right shoulde r February 27, 2024 2:25pm Status post surgery February 27, 2024 2:25pm Degenerative superior labral wpdnhugk-ob-wbcaimdvz (SLAP) tear of right matthias April 23, [...] exercises and steroid injection, [place] [facility]. 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) Referral Organization [facility] [place] Referring Provider First Name Amanda Referring Provider Last Name Logan Referring Provider Specialty Nurse Pract itioner Referred Organization [employer] Referred Provider Darleen Sinclair Referred Address [address],[place], [place],[address] Referred Provider Specialty Endocrinolog y Referral Priority Routine General Notes Fore, Chelsi M 023 11:26:34 AM >Received today and waiting for office notes to be locked before sending referral Additional Source Comments Reason for Visit (unrecogniz ed section and content) StatusReasonSpecialtyDiagnoses / ProceduresReferred By ContactReferred To Contact Diagnoses Morbid obesity (HCC) MORBID OBESITY, HYPOTHYROID Procedures CO LAP GASTRIC BYPASS/BEN-EN-Y XI LAPAROSCOPIC ROBOTIC GASTRIC BYPASS BEN-EN-Y, LIVER BIOPSY, EGD- GI UNIT SCHEDULED. Rashard Olivera, [address] [facility] [address] [place] [address] [facility] ReasonCommentsGynecologic ExamReasonCommentsInfertilitySpecialtyDiagnoses / ProceduresReferred By ContactReferred To ContactREPRODUCTIVE ENDOCRINOLOGY & FERTILITY Diagnoses Female infertility, unspecified Procedures VV OFFICE/OP CONSLTJ NEW/EST PT MOD MDM 40 MINUTES Pcp, Ana Rosa, ELEMENT BURNER [facility] [address] [address] [place] [address] Referral IDStatusReasonStart DateExpiration DateVisits RequestedVisits [id number] Financial Clearance Required - Self Pay Patient Cleared - True Self-Pay required payment collected Do Not Bill Insurance - SP patient Financial Clearance Not Required [id number] sperm teachSpecialtyDiagnoses / ProceduresReferred By ContactReferred To ContactREPRODUCTIVE ENDOCRINOLOGY & FERTILITY Diagnoses Infertility counseling Procedures OFFICE/OUTPATIENT ESTABLISHED MOD MDM 30 MIN Melodie Hernandez, MELY.[facility] [address] [facility] [address] [id number] [facility] [address] [address] [place] [address] Referral IDStatusReasonStart DateExpiration DateVisits RequestedVisits [id number] Financial Clearance Required - Self Pay Patient Cleared - True Self-Pay required payment collected Do Not Bill Insurance - SP patient /[id number] / ProceduresReferred By ContactReferred To ContactREPRODUCTIVE ENDOCRINOLOGY & FERTILITY Diagnoses Encounter for fertility testing Procedures OFFICE/OUTPATIENT ESTABLISHED LOW MDM 20 MIN [facility] [address] [place] [address] [facility] [address] [place] [address] Referral IDStatusReasonStart DateExpiration DateVisits RequestedVisits [id number] Financial Clearance Required - Self Pay Patient Cleared - True Self-Pay required payment collected Do Not Bill Insurance - SP patient [id number] PlanningReasonCommentsre iui this wknd/has cervical polyp questionReasonCommentsPatient [...] section and content) DATE CREATED AUTHOR 05/08/2020 [facility] DATE CREATED AUTHOR 'S ORGANIZ ATION 03/31/2021 [facility] DATE CREATED AUTHOR AUTHOR'S ORGANIZ ATION 09/04/2021 [facility] DATE CREATED AUTHOR AUTHOR'S ORGANIZ ATION 04/19/2024 [facility] DATE CREATED AUTHOR AUTHOR'S ORGANIZ ATION 05/05/2024 [facility] DATE CREATED AUTHOR AUTHOR'S ORGANIZ ATION 09/12/2024 [facility] DATE CREATED AUTHOR AUTHOR'S ORGANIZ ATION 10/05/2024 [facility] DATE CREATED AUTHOR AUTHOR'S ORGANIZ ATION 12/07/2024 [facility] DATE CREATED AUTHOR AUTHOR'S ORGANIZ ATION 12/07/2024 [facility] DATE CREATED AUTHOR AUTHOR'S ORGANIZ ATION 02/08/2025 [facility] DATE CREATED AUTHOR AUTHOR'S ORGANIZ ATION 02/21/2025 [facility] EPIC Care Teams (unrecognized sec tion and content) Team Status: Inactive Member Role Status Dates Mariam Appiah MD Primary Care Provider Active Amanda Ford APRN IRRIGATION FLUME LAYER-CAttenrocky ProviderActive Team Status: Inactive Member Role Status Dates Amanda Ford APRN IRRIGATION FLUME LAYER-C Primary Care Provider Active Dariel Howell ProviderActive Team Status: Inactive Member Role Status Dates Amanda Ford APRN IRRIGATION FLUME LAYER-C Primary Care Provider Active Michelle Zhang ProviderActive Team Status: Active Member Role Status Dates Amanda Ford APRN IRRIGATION FLUME LAYER-C Primary Care Provider Active Team Status: Inactive Member Role Status Dates Amanda Ford APRN IRRIGATION FLUME LAYER-C Primary Care Provider, Attending Provider Active Team Status: Active Member Role Status Dates Amanda Ford APRN IRRIGATION FLUME LAYER-C Primary Care Provider Active Dariel Howell ProviderActiveFarhad Gallego , MDAdmit Provider, Attending ProviderActive Team Status: Inactive Member Role Status Dates Amanda Ford APRN IRRIGATION FLUME LAYER-C Primary Care Provider Active Dariel Howell ProviderActiveAnoDasilvaLashonda , MDAdmit Provider, Attending ProviderActive Team Status: Inactive Member Role Status Dates Amanda Ford APRN IRRIGATION FLUME LAYER-C Primary Care Provider Active Silva Greco ProviderActive Team Status: Inactive Member Role Status Dates Provider Conversion Attending Provider Active St art: May 17, 2023 End: May 17, 2023 Team Status: Inactive Member Role Status Dates Amanda Ford APRN IRRIGATION FLUME LAYER-C Primary Care Provider, Attending Provider Active Start: June 08, 2023 End: June 08, 2023 Team Status: Active Member Role Status Dates Amanda Ford APRN IRRIGATION FLUME LAYER-C Primary Care Provider, Attending Provider Active Start: September 15, 2023 Team Status: Inactive Member Role Status Dates Amanda Ford APRN IRRIGATION FLUME LAYER-C Primary Care Provider Active Start: October 13, 2023 End: October 13, 2023Romeo Santana DOAttending ProviderActiveStart: October 13, 2023 End: October 13, 2023 Team Status: Inactive Member Role Status Dates Amanda Ford APRN IRRIGATION FLUME LAYER-C Primary Care Provider Active Start: October 26, 2023 End: October 26, 2023Romeo Santana DOAttending ProviderActiveStart: October 26, 2023 End: October 26, 2023 Team Status: Inactive Member Role Status Dates Amanda Ford APRN IRRIGATION FLUME LAYER-C Primary Care Provider Active Start: November 01, 2023 End: November 01, 2023Romeo Santana DOAttending ProviderActiveStart: November 01, 2023 End: November 01, 2023 Team Status: Inactive Member Role Status Dates Amanda Ford APRN IRRIGATION FLUME LAYER-C Primary Care Provider Active Start: November 28, 2023 End: November 28, 2023Romeo Santana DOAttending ProviderActiveStart: November 28, 2023 End: November 28, 2023 Team Status: Inactive Member Role Status Dates Amanda Ford APRN IRRIGATION FLUME LAYER-C Primary Care Provider Active Start: December 01, 2023 End: December 01, 2023Romeo Santana DOAttending ProviderActiveStart: December 01, 2023 End: December 01, 2023 Team Status: Inactive Member Role Status Dates Amanda Ford APRN IRRIGATION FLUME LAYER-C Primary Care Provider Active Start: December 07, 2023 End: December 07, 2023Romeo Santana DOAttending ProviderActiveStart: December 07, 2023 End: December 07, 2023 Team Status: Active Member Role Status Dates Amanda Ford APRN IRRIGATION FLUME LAYER-C Primary Care Provider Active Start: December 07, 2023 Romeo Santana DOAttending Provider, Other ProviderActiveStart: December 07, 2023 Team Status: Inactive Member Role Status Dates Amanda Ford APRN IRRIGATION FLUME LAYER-C Primary Care Provider Active Start: December 192023 End: December 20, 2023Romeo Santana DOAttending ProviderActiveStart: December 20, 2023 End: December 20, 2023 Team Status: Active Member Role Status Dates Amanda Ford APRN IRRIGATION FLUME LAYER-C Primary Care Provider Active Start: December 182023 Romeo Santana , DOOther ProviderActiveStart: January 10, 2024 Daniel Hampton MDAttending ProviderActiveStart: January 10, 2024 Team Status: Inactive Member Role Status Dates Amanda Ford APRN IRRIGATION FLUME LAYER-C Primary Care Provider Active Start: January 17, 2024 End: January 17, 2024Romeo Santana DOAttending ProviderActiveStart: January 17, 2024 End: January 17, 2024Team MemberRelationshipSpecialtyStart DateEnd Date Amanda Ford NP [address] [place] [address] [facility]01/17/23Team MemberRelationshipSpecialtyStart DateEnd Date Amanda Ford NP [address] [place] [address] [facility]01/17/23 Team Status: Inactive Member Role Status Dates Amanda Ford APRN IRRIGATION FLUME LAYER-C Primary Care Provider Active Start: February 262023 End: February 27, 2024Romeo Santana DOAttending ProviderActiveStart: February 27, 2024 End: February 27, 2024Team MemberRelationshipSpecialtyStart DateEnd Date Amanda Ford NP PCP - [facility]01/17/23 Team Status: Active Member Role Status Dates Amanda Ford APRN IRRIGATION FLUME LAYER-C Primary Care Provider Active Start: February Kenny Gallegos ProviderActiveStart: February 20, 2024 Team Status: Inactive Member Role Status Dates Amanda Ford APRN IRRIGATION FLUME LAYER-C Primary Care Provider Active Start: April 23, 2024 End: April 23, 2024Kenny Gary ProviderActiveStart: April 23, 2024 End: April 23, 2024 Team Status: Inactive Member Role Status Dates Amanda Ford APRN IRRIGATION FLUME LAYER-C Primary Care Provider, Attending Provider Active Start: April 26, 2024 End: April 26, 2024Team MemberRelationshipSpecialtyStart DateEnd Date Amanda Ford NP [address] [place] [address] [facility] Tmgosgtx52/2/23Team MemberRelationshipSpecialtyStart DateEnd Date Amanda Ford NP [address] [place] [address] [facility] - [facility] Socpmkcw75/2/23Team MemberRelationshipSpecialtyStart DateEnd Date Amanda Ford NP [address] [place] [address] [facility] - [facility] Sfuchnno06/2/23Team MemberRelationshipSpecialtyStart DateEnd Date Amanda Ford NP [address] [place] [address] [facility] Kiossuyx66/2/23 Team Status: Inactive Member Role Status Dates Amanda Ford APRN IRRIGATION FLUME LAYER-C Primary Care Provider Active Start: October 18, 2024 End: October 18lexjerri Arriaza , DOEmergency ProviderActiveStart: October 18, 2024 End: October 18, 2024Team MemberRelationshipSpecialtyStart DateEnd Date Amanda Ford NP [address] [place] [address] PCP - GeneralFamily Yvcfikby83/2/23Team MemberRelationshipSpecialtyStart DateEnd Date No Pcp, [place] [address] PCP - GeneralFamily Medicine05/20/20Team MemberRelationshipSpecialtyStart DateEnd Date No Pcp, [place] [address] PCP - GeneralFamily Medicine05/20/20Team MemberRelationshipSpecialtyStart DateEnd Date Amanda Ford NP [address] [place] [address] PCP - GeneralFamily Ddhkqkkb50/2/23Team MemberRelationshipSpecialtyStart DateEnd Date Amanda Ford NP [address] [place] [address] PCP - GeneralFamily Vjkspsfc55/2/23Team MemberRelationshipSpecialtyStart DateEnd Date Amanda Ford NP [address] [place] [address] PCP - GeneralFamily Mtjvsibn76/2/23 Team Status: Active Member Role Status Dates Amanda Ford APRN IRRIGATION FLUME LAYER-C Primary Care Provider Active Start: November 17, 2024 Chris Dickerson , DOAttending ProviderActiveStart: November 17, 2024 Team Status: Active Member Role Status Dates Amanda Ford APRN IRRIGATION FLUME LAYER-C Primary Care Provider Active Start: November 20, 2024 Les Juan , DOAttending ProviderActiveStart: November 20, 2024 Team Status: Active Member Role Status Dates Amanda Ford APRN IRRIGATION FLUME LAYER-C Primary Care Provider Active Start: November 30, [...] Member Role Status Dates Amanda Ford APRN IRRIGATION FLUME LAYER-C Primary Care Provider Active Start: December 02, 2024 End: December 03, 2024Eduardo Cruz , DOAttending ProviderActiveStart: December 02, 2024 End: December 03, 2024Team MemberRelationshipSpecialtyStart DateEnd Date No Pcp, [place] [address] PCP - GeneralFamily Medicine05/20/20Team MemberRelationshipSpecialtyStart DateEnd Date No Pcp, [place] [address] PCP - GeneralFamily Medicine05/20/20Team MemberRelationshipSpecialtyStart DateEnd Date Amanda Ford NP [address] [place] [address] PCP - GeneralFamily Qbehlxxh41/2/23Team MemberRelationshipSpecialtyStart DateEnd Date No Pcp, [place] [address] PCP - GeneralFamily Medicine05/20/20Team MemberRelationshipSpecialtyStart DateEnd Date No Pcp, [place] [address] PCP - GeneralFamily Medicine05/20/20Team MemberRelationshipSpecialtyStart DateEnd Date Amanda Ford NP [address] [place] [address] PCP - GeneralFamily Cfekyhgu79/2/23Team MemberRelationshipSpecialtyStart DateEnd Date Amanda Ford NP [address] [place] [address] [place] [address] PCP - GeneralFamily Vmdhoayv05/2/23Team MemberRelationshipSpecialtyStart DateEnd Date Amanda Ford NP [address] [place] [place] [address] PCP - Generalmily Muqwwvei99/2/23Team MemberRelationshipSpecialtyStart DateEnd Date MerylsarahAmanda de la fuente NP [address] [place] [address] PCP - GeneralFamily Fsgocija50/2/23 Goals (unrecognized section and content) Type Treatment [...] prosecute any alcohol or drug abuse patient.[facility] the event this information is protected by the Federal Confidentiality of Alcohol and Drug Abuse Patient Records regulations: The Federal rules restrict any use of the information to criminally investigate or prosecute any alcohol or drug abuse patient.[facility] Jackson[facility] the event this information is protected by the Federal Confidentiality of Alcohol and Drug Abuse Patient Records regulations: The Federal rules restrict any use of the information to criminally investigate or prosecute any alcohol or drug abuse patient.[facility] JacksonIn the event this information is protected by the Federal Confidentiality of Alcohol and Drug Abuse Patient Records regulations: The Federal rules restrict any use of the information to criminally investigate or prosecute any alcohol or drug abuse patient.[facility] JacksonIn the event this information is protected by the Federal Confidentiality of Alcohol and Drug Abuse Patient Records regulations: The Federal rules restrict any use of the information to criminally investigate or prosecute any alcohol or drug abuse patient.[facility] JacksonIn the event this information is protected by the Federal Confidentiality of Alcohol and Drug Abuse Patient Records regulations: The Federal rules restrict any use of the information to criminally investigate or prosecute any alcohol or drug abuse patient.[facility] [place]In the event this information is protected by the Federal Confidentiality of Alcohol and Drug Abuse Patient Records regulations: The Federal rules restrict any use of the information to criminally investigate or prosecute any alcohol or drug abuse patient.[facility] [place]In the event this information is protected by the Federal Confidentiality of Alcohol and Drug Abuse Patient Records regulations: The Federal rules restrict any use of the information to criminally investigate or prosecute any alcohol or drug abuse patient.[facility] [place]In the event this information is protected by the Federal Confidentiality of Alcohol and Drug Abuse Patient Records regulations: The Federal rules restrict any use of the information to criminally investigate or prosecute any alcohol or drug abuse patient.[facility] [place]In the event this information is protected by the Federal Confidentiality of Alcohol and Drug Abuse Patient Records regulations: The Federal rules restrict any use of the information to criminally investigate or prosecute any alcohol or drug abuse patient.[facility] JacksonIn the event this information is protected by the Federal Confidentiality of Alcohol and Drug Abuse Patient Records regulations: The Federal rules restrict any use of the information to criminally investigate or prosecute any alcohol or drug abuse patient.[facility] JacksonIn the event this information is protected by the Federal Confidentiality of Alcohol and Drug Abuse Patient Records regulations: The Federal rules restrict any use of the information to criminally investigate or prosecute any alcohol or drug abuse patient.[facility] [place]In the event this information is protected by the Federal Confidentiality of Alcohol and Drug Abuse Patient Records regulations: The Federal rules restrict any use of the information to criminally investigate or prosecute any alcohol or drug abuse patient.[facility] [place]In the event this information is protected by the Federal Confidentiality of Alcohol and Drug Abuse Patient Records regulations: The Federal rules restrict any use of the information to criminally investigate or prosecute any alcohol or drug abuse patient.[facility] [place]In the event this information is protected by the Federal Confidentiality of Alcohol and Drug Abuse Patient Records regulations: The Federal rules restrict any use of the information to criminally investigate or prosecute any alcohol or drug abuse patient.[facility] [place]In the event this information is protected by the Federal Confidentiality of Alcohol and Drug Abuse Patient Records regulations: The Federal rules restrict any use of the information to criminally investigate or prosecute any alcohol or drug abuse patient.[facility] [place]In the event this information is protected by the Federal Confidentiality of Alcohol and Drug Abuse Patient Records regulations: The Federal rules restrict any use of the information to criminally investigate or prosecute any alcohol or drug abuse patient.[facility] [place]In the event this information is protected by the Federal Confidentiality of Alcohol and Drug Abuse Patient Records regulations: The Federal rules restrict any use of the information to criminally investigate or prosecute any alcohol or drug abuse patient.[facility] [place]In the event this information is protected by the Federal Confidentiality of Alcohol and Drug Abuse Patient Records regulations: The Federal rules restrict any use of the information to criminally investigate or prosecute any alcohol or drug abuse patient.[facility] [place]In the event this information is protected by the Federal Confidentiality of Alcohol and Drug Abuse Patient Records regulations: The Federal rules restrict any use of the information to criminally investigate or prosecute any alcohol or drug abuse patient.[facility] [place]In the event this information is protected by the Federal Confidentiality of Alcohol and Drug Abuse Patient Records regulations: The Federal rules restrict any use of the information to criminally investigate or prosecute any alcohol or drug abuse patient.[facility] [place]In the event this information is protected by the Federal Confidentiality of Alcohol and Drug Abuse Patient Records regulations: The Federal rules restrict any use of the information to criminally investigate or prosecute any alcohol or drug abuse patient.[facility] [place]In the event this information is protected by the Federal Confidentiality of Alcohol and Drug Abuse Patient Records regulations: The Federal rules restrict any use of the information to criminally investigate or prosecute any alcohol or drug abuse patient.[facility] [place]In the event this information is protected by the Federal Confidentiality of Alcohol and Drug Abuse Patient Records regulations: The Federal rules restrict any use of the information to criminally investigate or prosecute any alcohol or drug abuse patient.[facility] JacksonIn the event this information is protected by the Federal Confidentiality of Alcohol and Drug Abuse Patient Records regulations: The Federal rules restrict any use of the information to criminally investigate or prosecute any alcohol or drug abuse patient.[facility] [place]In the event this information is protected by the Federal Confidentiality of Alcohol and Drug Abuse Patient Records regulations: The Federal rules restrict any use of the information to criminally investigate or prosecute any alcohol or drug abuse patient.[facility] JacksonIn the event this information is protected by the Federal Confidentiality of Alcohol and Drug Abuse Patient Records regulations: The Federal rules restrict any use of the information to criminally investigate or prosecute any alcohol or drug abuse patient.[facility] [place] FOR RECORDS PERTAINING TO PATIENTS WHO ARE [...] PRIMARY CLINICAL RECORDS. [facility] [employer] [facility]. provides no warranty or guarantee of the accuracy or completeness of information in this document.
[2025-02-28 14:15] VITALS: BP 141/72; PULSE 71
== END 2025-02-28 15:00 | disposition home or self-care (01) ==
LOC: FBCO 14:04 → FBC 14:06
PROVIDERS: PCP Nurse Practitioner Family; Visit Provider Obstetrics & Gynecology
DX: O99.283 Endocrine, nutritional and metabolic diseases complicating pregnancy, third trimester (principal); Z3A.32 32 weeks gestation of pregnancy
CPT/HCPCS: 59025

== ENCOUNTER 2025-03-04 11:11 | Outpatient (OUT) | payer MEDICAID, SELFPAY ==
--- OUTSIDE RECORDS SUMMARY | 2025-03-04 11:18 | XMS_ITS | CCD ---
Author Organization [facility] Care Team Providers Care Director Software Development Name Role Phone Mariam Appiah Primary Care Provider MACKENZIE BRITO Referring Unavailable MARIAM APPIAH Primary Care Unavailable RASHARD OLIVERA Referring Unavailable MARIAM APPIAH Primary Care Unavailable RASHARD OLIVERA Referring Unavailable MARIAM APPIAH Primary Care Unavailable RASAHRD OLIVERA Admitting Unavailable RASHARD OLIVERA Attending Unavailable MARIAM APPIAH Primary Care Unavailable MARIAM APPIAH Primary Care Unavailable MARIAM APPIAH Primary Care Physician Amanda Ford Unavailable MD Mariam Appiah Primary Care Provider MELY Ford Attending Provider MELY Ford Primary Care Provider DO Jack Easton Emergency Provider MARYSOL Jett Emergency Provider [phone] MD aLshonda Farhad Admit Provider MD Farhad Gallego Attending Provider [phone] MELY Ford Attending Provider SHARRON Jefferson Attending Provider Petr Lay Unavailable Romeo Santana Unavailable MELY Ford Primary Care Provider DO Romeo Santana Attending Provider Daxa Ford NPnifer Primary Care Provider Unavailable Rohrbacher DRY CANS OPERATOR, Amanda Primary Care Provider Romeo Santana DO Attending Provider Rohrbacher TILE DITCHER, Amanda A Primary Care Provider Unavailable Primary Care Provider Unavailabl e DAVID, MELODIE G Referring Unavailable Unavailable Primary Care Provider Unavailabl e NOLA ENRIQUEZ Attending Unavailable Rohrbacher TILE DITCHER, Amanda A Primary Care Provider DAVID, MELODIE [...] Unavailable JUAN, LES R Attending Unavailable Rohrbacher DRY CANS OPERATOR, Amanda Primary Care Provider Kassidy Arriaza DO Emergency Provider [phone] No Pcp, No Pcp Primary Care Provider Unavailabl e Chris Dickerson DO Attending Provider Les aMrtinez DO Attending Provider Elizabeth Tom Attending Provider [phone] Eduardo Cruz DO Attending Provider JUAN, LES R Referring Unavailable NO PCP, NO PCP Primary Care Unavailable ENRIKE LINDQUIST Attending Unavailable JUAN, LES R Referring Unavailable NO PCP, NO PCP Primary Care Unavailable Amanda Ford Primary Care Unavailable Kassdiy Arriaza Admitting Unavailable Kassidy Arriaza Attending Unavailable [...] of OnsetReaction(s) Facility (20 sources)Non-steroidal anti-inflammatory agentDrug allergyUnkWesterly Hospital [employer] Other (20 sources)Non-steroidal anti-inflammatory agent; Translations: [NSAIDs]Drug Jzgshcl09-61-2390QnxagkfKXUP [facility] (1 source)ALLERGIES NOT ON FILE; Translations: [ALLERGIES NOT ON FILE]Propensity to adverse reactions (disorder)[facility] Repository (6 sources)NSAIDs; Translations: [NSAIDS (NON-STEROIDAL ANTI-INFLAMMATORY DRUG)] Propensity to adverse reactions to [facility]17-[facility]2577[facility] (1 source)NSAIDsDrug allergy (disorder)06-50-4772WjschxnscKeenan [facility] Medications Current Medications MedicationDrug Class(es)DatesSig (Normalized)Sig (Original)acetaminophen 500 mg oral tablet (20 sources)Start: 19-70-6238vvhu 1 tablet by mouth every eight hours as needed acetaminophen (TYLENOL) 500 mg tablet Take 500 mg by mouth every 8 hours as needed for pain. 12/06/2023 ActiveStart: 52-73-9825dfkb 1 tablet by mouth every six hours as needed for painStart: 11-28-2023 End: 09-55-8610idnvxhurpytkr (Tylenol Extra Strength) Discontinued 1000 MG PO EVERY 8-10 HOURS as needed for pain November 28, 2023 12:00am January 17, 2024 12:03pmacetaminophen 500 mg / diphenhydrAMINE hydrochloride 25 mg oral tablet (4 sources)Histamine-1 Receptor AntagonistStart: 14-88-2444seiw 2 tablets by mouth once daily at bedtime for sleepTylenol Extra Strength PM oral tablet 2 tab(s), Oral, Once a day (at bedtime) for sleep, 60 tab(s),Refill(s) 2, [facility], 182, cm, 07/09/19 13:03:00 EDT, Height/Length Measured, 200.7, k g, 07/09/19 13:03:00 EDT, Weight Measured Start Date: 10/04/19 Status: Ordered acetaminophen 325 mg / oxyCODONE hydrochloride 5 mg oral tablet (2 sources)Opioid AgonistStart: 05-07-2020 End: 04-34-6907cjrf 1 tablet by mouth every six hours [...] pain 28 tablet 0 05/07/2020 05/14/2020 ActiveStart: 59-33-4538mypXNPNZN-acetaminophen (PERCOCET) 5-325 MG per tablet 1 tablet albuterol 0.833 mg/ml / ipratropium bromide 0.167 mg/ml inhalant solution (1 source)Anticholinergic, beta2-Adrenergic AgonistStart: 96-94-0628udtaxfudxea- albuterol (DUONEB) nebulizer solution 1 ampulebenztropine mesylate 1 mg oral tablet (4 sources)Anticholinergic, AntihistamineStart: 01-96-0791yzizilifkas 1 mg Tab Refills(s) 0 Start Date: 01/30/20 Status: Orderedcalcium chloride 0.0014 meq/ml / potassium chloride 0.004 meq/ml / sodium chloride 0.103 meq/ml / sodium lactate 0.028 meq/ml injectable solution (2 sources)Start: 05-06-2020 End: 97-62-1708qdcudrre ringers infusiondocusate sodium 100 mg oral capsule (20 sources)Start: 04-16-2024 End: 65-16-1820vrfk 1 capsule by mouth twice daily as needed for constipation Docusate Sodium (Stool Softener) 100 mg capsule Active 0 .ROUTE .COMPLEX April 26, 2024 9:52am TAKE 1 CAPSULE BY MOUTH TWICE DAILY NEEDED FOR CONSTIPATION Complies with drug therapyStart: 04-16-2024 End: 49-28-3833uamh 1 capsule by mouth twice daily as needed for constipation Docusate Sodium (Stool Softener) 100 mg capsule Discontinued 0 .ROUTE .COMPLEX April 16, 2024 8:58am April 26, 2024 8:57am TAKE 1 CAPSULE BY MOUTH TWICE DAILY NEEDED FOR CONSTIPATIONStart: 06-17-2022 End: 54-87-1586siggojvy sodium (Colace) 100 MG capsule 1 (one) time each day at the same time 06/17/2022 ActiveStart: 06-11-2022 End: 46-44-8124ckvw 1 capsule by mouth twice daily as [...] prefilled syringe (1 source)Low Molecular Weight HeparinStart: 61-44-5168hgycjiieam (LOVENOX) 60 MG/0.6ML injection Inject 0.6 mLs into the skin 2 times daily 28 Syringe 0 0 05/07/2020 Active2 ml famotidine 10 mg/ml injection (1 source)Histamine-2 Receptor AntagonistStart: 54-51-0015veqvpayzoj (PEPCID) injection 20 mg1 ml heparin sodium, porcine 5000 unt/ml prefilled syringe (2 sources)Unfractionated Heparin, Anti-coagulantStart: 05-06-2020 End: 43-56-6843bzqremr (porcine) injection 5,000 Units1 ml HYDROmorphone hydrochloride 1 mg/ml cartridge (3 sources)Opioid AgonistStart: 81-45-2532WCYSEfpziyxpo (DILAUDID) injection 1 mgStart: 05-06-2020 End: 77-22-4764PQRRKccvudhjb (DILAUDID) 1 MG/ML injectionStart: 05-06-2020 End: 00-85-7483SYIXYohvsnqoc (DILAUDID) injection 0.5 mghydrOXYzine hydrochloride 50 mg oral tablet (4 sources)AntihistamineStart: 23-52-9852aofy 1-2 tablets by mouth four times dailyhydrOXYzine hydrochloride 50 mg oral tablet See Instructions, 1-2 tab(s) Oral QID, # 60 tab(s), Refills(s) 2, Pharmacy: [facility] Start Date: 10/09/18 Status: OrderedlamoTRIgine 200 mg oral tablet (20 sources)Mood Stabilizer, Anti-epileptic AgentStart: 38-99-5633Oxruvlsoieb Active MG TABLET April 10, 2022 12:00amStart: 73-22-6747uqocvwrowzd 200 mg Tab 300 mg = 1.5 tab(s), Oral, Daily, # 45 tab(s), Refills(s) 5, Pharmacy: [facility], 182, cm, 12/06/19 12:03:00 EDT, Height/Length Dosing, 200.7, kg, 11/28/19 9:08:00 EDT, Weight Dosing Start Date: 01/30/20 Status: OrderedStart: 10-04-2018 End: 13-67-1243ilxr 1 tablet by mouth once daily at bedtimeLamotrigine 200 mg tablet Discontinued 200 MG PO Daily at bedtime October 08, 2019 12:00am August 01, 2021 2:19pmLaMICtal 200 MG tablet 1.5 tabs Activelevothyroxine sodium 0.05 mg oral tablet (20 sources)l-ThyroxineStart: 02-24-2024 End: 43-27-1928mnhg 1 tablet by mouth before mealtimelevothyroxine (Synthroid, Levoxyl) 50 MCG tablet Indications: Nontoxic goiter Take 1 tablet (50 mcg) by mouth in the morning. Take before meals. 90 tablet 3 08/22/2024 08/17/2025 ActiveStart: 10-13-2023 End: 65-21-5784ltrg 1 capsule by mouth once daily in the morningLevothyroxine 50 mcg capsule Discontinued 50 MCG PO Every morning October 13, 2023 12:00am April 26, 2024 9:56amStart: 10-08-2019 End: 22-44-5915hxdm 1 tablet by mouth every other dayLevothyroxine 175 mcg Tablet Discontinued 175 MCG PO every other day October 08, 2019 12:00am July 172021 2:19pm 1 tablet on odd daysStart: 10-08-2019 End: 45-67-3678indm 1.5 tablets by mouth every other dayLevothyroxine 175 mcg Tablet Discontinued 262 MCG PO every other day October 08, 2019 12:00am July 172021 2:19pm 1.5 tabs every other day on even daysStart: 10-08-2019 End: 71-86-4262uwuv 1.5 tablets by mouth every other dayLevothyroxine Discontinued 262 MCG PO every other day October 08, 2019 12:00am August 01, 2021 2:19pm 1.5 tabs every other day on even daysStart: 85-50-2261vlve 1 tablet by mouth once dailylevothyroxine 175 mcg (0.175 mg) Tab 175 microgram = 1 tab(s), Oral, Daily, # 30 tab(s), Refills(s)0 Start Date: 09/03/18 Status: Ordered lidocaine 0.05 mg/mg medicated patch (20 sources)Antiarrhythmic, Amide Local AnestheticStart: 02-24-2024 End: 27-12-0825qvddm 1 dose transdermal route once dailyLidocaine 5 % adhesive patch,medicated Active 0 .ROUTE .COMPLEX April 26, 2024 9:53am APPLY 1 PATCH TOPICALLY ONCE DAILY. REMOVE AFTER 12 HOURS Complies with drug therapy Start: 02-24-2024 End: 37-94-8037mduya 1 dose topically once dailyLidocaine 5 % adhesive patch,medicated Discontinued 1 PATCH TOPICAL Daily February 24, 2024 1:00am February 24, 2024 9:54am leave on most painful area for up to 12 hrsStart: 10-24-2023 End: 23-25-2561lwdds 1 dose transdermal route once dailyLidocaine 5 % adhesive patch,medicated Discontinued 0 .ROUTE .COMPLEX October 24, 2023 8:47am January 17, 2024 12:04pm APPLY 1 PATCH TOPICALLY ONCE DAILY. REMOVE AFTER 12 HOURS Start: 06-03-2023 End: 23-56-9930afcmf 1 dose topically once daily as neededLidocaine 5 % adhesive patch,medicated Discontinued 1 PATCH TOPICAL Daily as needed June 03, 2023 1:00am October 24, 2023 8:48am REMOVE AFTER 12 HOURSStart: 43-40-2602Bogwbgjfq 5 % 1 patch remove after 12 hours Externally Once a day for 30 day(s) PRN Jan, ActiveLidocaine 5 % APPLY 1 PATCH TOPICALLY ONCE DAILY. REMOVE AFTER 12 HOURS. for 30 Activelithium carbonate 450 mg extended release oral tablet (8 sources)Start: 09-49-8121swye 1 tablet by mouth once daily in the morning, then take 2 tablets by mouth once daily in the eveninglithium 450 mg oral tablet, extended release See Instructions, 1 tab po qAM and 2 tabs qPM, # 90 tab (s), Refills(s) 2, Pharmacy: [facility], 182, cm, 12/06/19 12:03:00 EDT, Height/Length Dosing, 200.7, kg, 11/28/19 9:08:00 EDT, Weight Dosing Start Date: 03/17/20 Status: Orderedmagnesium oxide 400 mg oral tablet (5 sources)Start: 57-70-3276xtdr 1 tablet by mouth once in the morning, then take 1 tablet by mouth at bedtimemagnesium oxide (MAGOX) 400 mg tablet Indications: headache in second trimester Take 1 tablet (400 mg total) by mouth in the morning and 1 tablet (400 mg total) before bedtime. 120 tablet 1 12/05/2024 Active2 ml ondansetron 2 mg/ml injection (1 source)Serotonin-3 Receptor AntagonistStart: 16-72-5843eapdkwgdpgq (ZOFRAN) injection 4 mgpantoprazole 40 mg extended release oral tablet (4 sources)Proton Pump InhibitorStart: 79-00-0312kwgi 1 tablet by mouth once dailypantoprazole 40 mg Oral EC Tab 40 mg = 1 tab(s), Oral, Daily, # 30 tab(s), Refills(s) 0 Start Date:09/03/18 Status: OrderedPNV Combo No.47-Iron-FA #1-DHA (PNV-DHA) 27 mg iron-1 mg -300 mg (5 sources)Start: 96-91-8534gqrw 1 capsule by mouth once dailyPNV Combo No.47-Iron-FA #1-DHA (PNV-DHA) 27 mg iron-1 mg -300 mg Take 1 capsule by mouth once daily. 08/20/2024 Activepolysaccharide iron complex 391 mg oral capsule (20 sources)Start: 04-65-5552hzck 1 capsule by mouth twice daily at bedtimeProFe 391.3 (180 Fe) MG capsule Indications: Other iron deficiency anemia TAKE 1 CAPSULE BY MOUTH TWICE DAILY IN THE MORNING AND BEFORE BEDTIME 60 capsule 3 11/06/2024 ActiveStart: 12-07-2023 End: 15-60-9618otqk 1 capsule by mouth once dailyPolysaccharide Iron Complex (Pro Fe) 180 mg iron capsule Discontinued 180 MG PO Daily December 07, 2023 12:00am April 23, 2024 3:52pmtake 2 capsules by mouth twice daily Polysaccharide Iron Complex (PRO FE) 180 mg iron cap Take 2 capsules by mouth two times a day. Activeprenatal vp681-dogy-rlmug acid ( 19) 29 mg iron- 1 mg tablet,chewable (7 sources) wl178-balh-kendo acid ( 19) 29 mg iron- 1 mg tablet,chewable Chew 1 tablet and swallow in the morning. Activepromethazine hydrochloride 25 mg oral tablet (8 sources)PhenothiazineStart: 22-54-9493uosc 1 tablet by mouth every six hours as needed for nauseapromethazine (PHENERGAN) 25 MG tablet Take 1 tablet by mouth every 6 hours as needed for Nausea 30 tablet 0 05/07/2020 ActiveStart: 05-06-2020 End: 15-57-3377qfkm 1 tablet by mouth four times daily as needed for nausea promethazine (PHENERGAN) 25 MG tablet Take 1 tablet by mouth 4 times daily as needed for Nausea 20 tablet 0 05/07/2020 05/14/2020 ActiveStart: 05-06-2020 promethazine (PHENERGAN) injection 12.5 mgStart: 03-28-2019 End: 50-16-3616rpru 1 tablet by mouth every four hours as needed for nausea and vomitingpromethazine (PHENERGAN) 25 MG tablet TAKE 1 TABLET BY MOUTH EVERY 4 HOURS NEEDED FOR NAUSEA ANDVOMITING 0 03/28/2019 05/07/2020 Discontinued (REORDER)QUEtiapine 25 mg oral tablet (20 sources)Atypical AntipsychoticStart: 31-41-4936sooq 1 tablet by mouth at bedtimeQuetiapine 25 mg tablet Active 25 MG PO Bedtime April 10, 2022 1:00am Complies with drug therapyStart: 71-16-9387Jfdxuddhwm Active MG TABLET April 10, 2022 12:00amStart: 46-97-8342byzf 2 tablets by mouth at bedtime quetiapine 50 mg oral tablet 100 mg = 2 tab(s), Oral, Bedtime, # 60 tab(s), Refills(s) 5, Pharmacy:[facility], 182, cm, 12/06/19 12:03:00 EDT, Height/Length Dosing, 200.7, kg, 11/28/19 9:08:00 EDT, Weight Dosing Start Date: 03/12/20 Status: Orderedtake 1 tablet by mouth once dailyQUEtiapine (SEROQUEL XR) 50 MG extended release tablet Take 50 mg by mouth nightly 0 Aijhvs41 hr scopolamine 0.0139 mg/hr transdermal system (2 sources)AnticholinergicStart: 95-58-4997xklblvixtbr (TRANSDERM-SCOP) transdermal patch 1 patchsertraline 25 mg oral tablet (20 sources)Serotonin Reuptake InhibitorStart: 10-61-7195edcm 1 tablet by mouth once dailysertraline (Zoloft) 25 MG tablet Take 25 mg by mouth 1 (one) time each day at the same time 09/25/2024 Active3 ml sodium chloride 9 mg/ml injection (2 sources)Start: 54-16-5630tepchn chloride flush 0.9 % injection 10 mLSprintec oral tablet (4 sources)Start: 06-79-1370Wmwpxiue oral tablet 1 tab(s), Oral, Daily, 28 tab(s), Refill(s) 0 Start Date: 05/25/19 Status: Orderedsulfamethoxazole 400 mg / trimethoprim 80 mg oral tablet (7 sources)Dihydrofolate Reductase Inhibitor Antibacterial, Sulfonamide Antimicrobialtake 1 tablet by mouth every twenty-four hoursBactrim 400-80 MG 1 tablet Orally Once a day Activeziprasidone 80 mg oral capsule (20 sources)Atypical AntipsychoticStart: 42-92-3073pyoy 1 capsule by mouth twice daily at mealtimeziprasidone 80 mg Cap 80 mg = 1 cap(s), Oral, BID, with food, # 60 cap(s), Refills(s) 2, Pharmacy: [facility], 182, cm, 12/06/19 12:03:00 EDT, Height/Length Dosing, 200.7, kg, 11/28/19 9:08:00 EDT, Weight Dosing Start Date: 03/12/20 Status: OrderedStart: 10-08-2019 End: 76-41-4755avye 1 capsule by mouth twice dailyZiprasidone Hcl [...] oral tablet (20 sources)Opioid AgonistStart: 08-01-2021 End: 46-74-3661pizj 1 tablet by mouth every eight hours as needed for pain Hydrocodone-Acetaminophen 5-325 mg tablet Discontinued 1 TAB PO Q8H as needed for pain 7 2 August 01, 2021 April 10, 2022 7:18pmALPRAZolam 0.5 mg oral tablet (20 sources)BenzodiazepineStart: 06-17-2022 End: 57-89-5853xaph 1 tablet by mouth twice daily as needed for anxiety Alprazolam (Xanax) 0.5 mg tablet Discontinued 0.5 MG PO Twice daily as needed for Anxiety June 03, 2023 9:03am December 02, 2024 11:33pmStart: 06-10-2022 End: 56-51-1617qyax 1 tablet by mouth once daily as needed for anxietyAlprazolam (Xanax) 0.5 mg Tablet Discontinued 0.5 MG PO Daily as needed for Anxiety June 10, 2022 1:00am June 03, 2023 9:04amStart: 52-84-2029yafn 1-2 tablets by mouth every 30 days at bedtime as needed for anxietyalprazolam 0.5 mg Tab 1-2 tabs, Oral, Bedtime, PRN for anxiety, 30 day supply; DX: F41, anxiety, # 60 tab(s), Refills(s) 1, Pharmacy: [facility], 182, cm, 12/06/19 12:03:00 EDT, Height/Length Dosing, 200.7, kg, 11/28/19 9:08:00 EDT, Weight Dosing Start Date: 01/30/20 Status: OrderedStart: 10-08-2019 End: 86-12-5597rdbc 1 tablet by mouth three times daily as needed for anxiety Alprazolam (Xanax) 0.5 mg Tablet Discontinued 0.5 MG PO Three times daily as needed for Anxiety October 08, 2019 12:00am April 10, 2022 7:18pmatomoxetine 40 mg oral capsule (11 sources)Norepinephrine Reuptake InhibitorStart: 01-25-2022 End: 51-79-1455Fgcdqjfer 40 MG capsule 1 (one) time each day at the same time. 01/25/2022 10/22/2024 Bnozvleoizat64 ml bupivacaine hydrochloride 5 mg/ml injection (1 source)Amide Local AnestheticStart: 05-06-2020 End: 19-86-5426dirqkwdlvbb (PF) (MARCAINE) 0.5 % injection 200 mgStart: 05-06-2020 End: 70-32-1435uiivhvxnuwa (PF) (MARCAINE) 0.5 % injection 200 mg12 hr buPROPion hydrochloride 150 mg extended release oral tablet (15 sources)AminoketoneStart: 04-26-2024 End: 94-18-2505gkfy 1 tablet by mouth once dailyBupropion Hcl (Wellbutrin Sr) 150 mg tablet sustained-release 12 hr Discontinued 150 MG PO Daily April 26, 2024 1:00am December 02, 2024 11:34pm End: 22-03-0112ljwm 1 tablet by mouth once dailybuPROPion XL (Wellbutrin XL) 150 MG 24 hr tablet Take 150 mg by mouth Daily Do not crush, chew, or split. 10/22/2024 DiscontinuedbusPIRone hydrochloride 15 mg oral tablet (20 sources)Start: 04-10-2022 End: 78-04-5099fkek 1 tablet by mouth three times daily as neededBuspirone 15 mg tablet Discontinued 15 MG PO Three times daily June 10, 2022 1:00am June 03, 2023 9:04am TAKE 1 TABLET BY MOUTH THREE TIMES DAILY NEEDED FOR 30 DAYSStart: 04-10-2022 End: 42-72-3987lqjn 1 tablet by mouth twice dailyBuspirone 15 mg tablet Discontinued 15 MG PO Twice daily June 03, 2023 9:01am December 02, 2024 11:34pmStart: 04-10-2022 End: 87-97-9013Qfddigqwk Discontinued MG TABLET April 10, 2022 1:00am June 10, 2022 6:28pmceFAZolin (ANCEF) 3 g in dextrose 5 % 100 mL IVPB (1 source)Start: 05-06-2020 End: 65-26-8276ssSEGhmzl (ANCEF) 3 g in dextrose 5 % 100 mL IVPBcyclobenzaprine hydrochloride 10 mg oral tablet (20 sources)Muscle RelaxantStart: 06-10-2022 End: 55-10-8372maai 1 tablet by mouth at bedtimeCyclobenzaprine 10 mg tablet Discontinued 10 MG PO Bedtime June 10, 2022 1:00am November 28, 2023 3:55pmStart: 05-07-2020 End: 88-70-7891jedj 1 tablet by mouth once daily as needed for muscle spasms cyclobenzaprine (FLEXERIL) 10 MG tablet Take 1 tablet by mouth nightly as needed for Muscle spasms 10 tablet 0 05/07/2020 05/17/2020 ActiveStart: 21-93-0202ptvs 1 tablet by mouth twice daily as needed for muscle spasmscyclobenzaprine (FLEXERIL) 10 MG tablet Take 1 tablet by mouth 2 times daily as needed for Muscle spasms 20 tablet 0 05/07/2020 ActiveStart: 10-08-2019 End: 86-39-7049vlfx 1 tablet by mouth three times daily as needed for muscle spasmsCyclobenzaprine 10 mg tablet Discontinued 10 MG PO Three times daily as needed for Muscle Spasm October 08, 2019 12:00am August 01, 2021 2:19pm End: 41-86-4559dkyl 5 mg by mouth three times daily as needed for muscle spasms cyclobenzaprine (Flexeril) 10 MG tablet Take 5 mg by mouth 3 (three) times a day as needed for muscle spasms 10/22/2024 Discontinueddiclofenac sodium 0.01 mg/mg topical gel (17 sources)Nonsteroidal Anti-inflammatory DrugStart: 11-28-2023 End: 28-48-4442bktyh 1 g topically four times daily as needed for painDiclofenac Sodium (Aleve (Diclofenac)) 1 % gel Discontinued 1 GM TOPICAL Four times daily as neededfor pain November 28, 2023 12:00am January 17, 2024 12:03pm apply to single elbow, wrist or hand; for hand includes palm/fingers/back of handStart: 53-76-1840Tgijcrquya Sodium 1 % 2 grams Externally Four times a day as needed for 30 day(s) Mar, Activedoxycycline hyclate 100 mg oral tablet (20 sources)Tetracycline-class DrugStart: 08-01-2021 End: 17-74-4848dzft 1 tablet by mouth twice dailyDoxycycline Hyclate 100 mg tablet Discontinued 100 MG PO Twice daily August 01, 2021 12:00am April 10, 2022 7:18pmergocalciferol 1.25 mg oral capsule (20 sources)Provitamin D2 CompoundStart: 10-08-2019 End: 40-37-1573Dmkuvlcqeyztvi (Vitamin D2) (Vitamin D2) 1,250 mcg (50,000 unit) capsule Discontinued 63884 UNIT POevery week October 08, 2019 12:00am August 01, 2021 2:19pm Takes on Sundaystart: 40-05-5354Gqrzwwq D2 2000 intl units oral capsule Refills(s) 0 Start Date: 05/25/19 Status: OrderedStart: 01-12-2019 End: 94-43-5169zzgp 1 capsule by mouth every weekvitamin D (ERGOCALCIFEROL) 72430 units CAPS capsule Indications: Vitamin D deficiency Take 1 capsule by mouth once a week for 8 doses 8 capsule 0 01/12/2019 05/08/2020 Discontinued (Stop Taking at Discharge) End: 84-15-3367Uzwdpmuuukyara (VITAMIN D2 PO) Take 50,000 capsules by mouth once a week 0 05/08/2020 Discontinued (Stop Taking at Discharge)Ergocalciferol (VITAMIN D2 PO) Take 50,000 capsules by mouth once a week 0 ActiveNorgestimate- Ethinyl Estradiol (20 sources)Progestin, EstrogenStart: 10-08-2019 End: 87-50-9855epzk 1 tablet by mouth once dailyNorgestimate-Ethinyl Estradiol (Sprintec (28)) 0.25-35 mg-mcg tablet Discontinued 1 TAB PO Daily October 08, 2019 12:00am August 01, 2021 2:19pmStart: 10-08-2019 End: 72-14-8969uwcn 1 tablet by mouth once dailyNorgestimate-Ethinyl Estradiol (Sprintec (28)) 0.25-35 mg-mcg tablet Discontinued 1 TAB PO Daily October 07, 2019 11:00pm August 01, 2021 1:19pmStart: 21-08-6953zdum 1 tablet by mouth once dailySPRINTEC 28 0.25-35 MG-MCG per tablet TAKE 1 TABLET BY MOUTH ONCE DAILY 3 01/13/2019 Active2 ml fentaNYL 0.05 mg/ml injection (1 source)Opioid AgonistStart: 05-06-2020 End: 42-05-8665irqkzETC (SUBLIMAZE) injection 25 mcgferrous sulfate 325 mg oral tablet (20 sources)Start: 01-30-2020 End: 57-40-1425yghl 1 tablet by mouth once dailyFerrous Sulfate 325 mg (65 mg iron) tablet Discontinued 325 MG PO Daily June 11, 2022 1:00am August 29, 2023 11:07amgabapentin 300 mg oral capsule (1 source)Anti-epileptic AgentStart: 05-05-2020 End: 38-57-1620bhzn 1 capsule by mouth once daily, then take 1 capsule by mouth, then take 1 capsule by mouthgabapentin (NEURONTIN) 300 MG capsule Take 1 capsule by mouth daily for 2 days. Take one pill the night before and one the morning of surgery 2 capsule 0 05/05/2020 05/08/2020 Discontinued (Stop Taking at Discharge)iohexol (OMNIPAQUE 240) injection 30 mL (1 source)Start: 05-07-2020 End: 49-50-2141dswdqtd (OMNIPAQUE 240) injection 30 mL1 ml ketorolac tromethamine 15 mg/ml cartridge (1 source)Nonsteroidal Anti-inflammatory Drug, Cyclooxygenase InhibitorStart: 05-07-2020 End: 37-12-3180lbzwmkjex (TORADOL) injection 15 mgStart: 05-07-2020 End: 29-44-6203qvicfvshv (TORADOL) injection 15 mglansoprazole 30 mg delayed release oral capsule (20 sources)Proton Pump InhibitorStart: 10-08-2019 End: 70-89-6906sajf 1 capsule by mouth once daily in the morningLansoprazole 30 mg capsule,delayed release(DR/EC) Discontinued 30 MG PO Every morning November 28, 2023 12:00am February 10, 2024 11:58amletrozole 2.5 mg oral tablet (4 sources)Aromatase Inhibitor End: 06-15-0568qmth 1 tablet by mouth once dailyletrozole (Femara) 2.5 MG chemo tablet Take by mouth Daily. Take with or without food. 09/20/2024 Discontinued (Therapy completed)Lidocaine 5 % adhesive patch,medicated (3 sources)Start: 02-24-2024 End: 24-35-4036nrutn 1 dose transdermal route once dailyLidocaine 5 % adhesive patch,medicated Discontinued 0 .ROUTE .COMPLEX February 24, 2024 8:53am J anuary 2024 8:57am APPLY 1 PATCH TOPICALLY ONCE DAILY. REMOVE AFTER 12 HOURSStart: 73-04-2197dwmoc 1 dose transdermal route once dailyLidocaine 5 % adhesive patch,medicated Active 0 .ROUTE .COMPLEX February 24, 2024 8:53am APPLY 1 PATCH TOPICALLY ONCE DAILY. REMOVE AFTER 12 HOURSlurasidone hydrochloride 40 mg oral tablet (1 source)Atypical Antipsychotic End: 88-09-6857iurn 1 tablet by mouth once dailylurasidone (LATUDA) 40 MG TABS tablet Take by mouth daily 0 04/22/2020 Discontinued (LIST CLEANUP) medroxyPROGESTERone acetate 10 mg oral tablet (20 sources)ProgestinStart: 04-10-2022 End: 00-11-3921Wnrlcnjkytnkofydvul (Provera) 10 mg tablet Discontinued 10 MG PO Daily 01 25April 10, 2022 1:00am June 10, 2022 6:28pm begin day 16 of cyclemethylPREDNISolone acetate 80 mg/ml injectable suspension (20 sources)CorticosteroidStart: 50-84-9038CSHD-Medrol Sep, 80 mgStart: 75-25-1355vhbcrjPMGAOWKgmpya 4 MG as directed Orally daily for 6 days August, ActiveStart: 24-38-3123avofwtGXONFKBbuupc 4 MG as directed Orally daily for 6 days Jan, Not-Taking2 ml midazolam 1 mg/ml injection (1 source)BenzodiazepineStart: 05-06-2020 End: 48-50-8061odhxrsnhi PF (VERSED) injection 1 mgmupirocin 20 mg/ml topical cream (20 sources)RNA Synthetase Inhibitor AntibacterialStart: 06-10-2022 End: 71-91-4017Kgczhyilo Calcium 2 % cream Discontinued 1 APPLIC TOPICAL Twice daily as needed for GENITAL BOILS June 10, 2022 1:00am December 02, 2024 11:34pmStart: 66-61-8404Njkrurxfp Calcium 2 % 1 application Externally Twice a day for 5 day(s) Jan, ActiveStart: 10-08-0260Ntlipyppk Calcium 2 % 1 application Externally Twice a day for 5 day(s) Jan, Activenaltrexone hydrochloride 50 mg oral tablet (20 sources)Opioid AntagonistStart: 10-25-2023 End: 55-34-8714tzmopjkuom (Depade) 50 MG tablet every 12 (twelve) hours 10/25/2023 04/21/2024 ActiveStart: 06-03-2023 End: 69-33-0720jpez 2 tablets by mouth twice dailynaltrexone 50 mg tablet Take 2 tablets by mouth two times a day. 06/03/2023 ActiveStart: 06-03-2023 End: 35-36-6924dcpr 1 tablet by mouth twice dailyNaltrexone 50 mg tablet Discontinued 100 MG PO Twice daily April 23, 2024 3:51pm December 02, 2024 11:34pmStart: 47-64-4804amoy 50 mg by mouth once dailyNaltrexone Active 50 MG PO Daily June 03, 2023 1:00amtake 1 tablet by mouth every twenty-four hours Naltrexone HCl 50 MG 1 tablet Orally Once a day ActiveoxyCODONE hydrochloride 5 mg oral tablet (17 sources)Opioid AgonistStart: 12-09-2023 End: 71-38-1063ufux 1 tablet by mouth at mealtime for painOxycodone 5 mg tablet Discontinued 5 MG PO .q6-8hrs as needed for severe pain 03 22December 09, 2023 December 20, 2023 10:47am Take with food. Do not fill until 12/10/23.Start: 12-06-2023 End: 15-50-1044zzeq 1 tablet by mouth every six hours as needed for pain Oxycodone 5 mg tablet Discontinued 5 MG PO Q6H as needed for Pain 04 09December 06, 2023 December 07, 2023 7:13amrisperiDONE 4 mg oral tablet (1 source)Atypical AntipsychoticStart: 09-19-2018 End: 94-92-6725jyri 1 tablet by mouth in the morningrisperiDONE (RISPERDAL) 4 MG tablet TAKE 1 2 (ONE HALF) TABLET BY MOUTH IN THE MORNING AND 1 TAB INTHE EVENING 2 09/19/2018 04/22/2020 Discontinued (LIST CLEANUP)traMADol hydrochloride 50 mg oral tablet (17 sources)Opioid AgonistStart: 12-07-2023 End: 44-47-3906gzdv 1 tablet by mouth every eight hours as needed for pain Tramadol 50 mg tablet Discontinued 50 MG PO Every 8 hours as needed for pain 15 7 December 1443:44pm January 17, 2024 12:04pmtrihexyphenidyl hydrochloride 2 mg oral tablet (1 source)Start: 03-28-2019 End: 05-49-5908ltiq 1 tablet by mouth twice dailytrihexyphenidyl (ARTANE) 2 MG tablet TAKE 1 TABLET BY MOUTH TWICE DAILY FOR 30 DAYS 0 03/28/2019 04/22/2020 Discontinued (LIST CLEANUP) Problems Active Problems Problem ClassificationProblemDateDocumented DateEpisodic/ChronicAbdominal pain (20 sources)Flank pain; Translations: [Unspecified abdominal pain]07-03-2021 EpisodicAdministrative/social admission (2 sources)Treatment plan given; Translations: [Counseling, unspecified] 24-62-6137YqjwgrymBtyjznry reactions (5 sources)Acute urticaria; Translations: [Other urticaria]93-24-4908Bkveudbk Anxiety disorders (20 sources)Mixed anxiety and depressive disorder; Translations: [Anxiety disorder, unspecified]93-32-4441DunkmudCdolyjylk-deficit, conduct, and disruptive behavior disorders (20 sources)Attention deficit hyperactivity disorder, predominantly inattentive type; Translations: [Attention-deficit hyperactivity disorder, predominantly inattentive type]66-12-3817GyawwcmPsisnozwo-deficit, conduct, and disruptive behavior disorders (1 source)Attention-deficit hyperactivity disorder, predominantly inattentive typeChronicAttention-deficit, conduct, and disruptive behavior disorders (20 sources)Attention deficit hyperactivity disorder; Translations: [Attention- deficit hyperactivity disorder, predominantly inattentive type]ChronicBiliary tract disease (4 sources)Shycayjrk30-89-0188TbpxcgyyNatulhejcwnwo and procreative management (14 sources)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 partner; Translations: [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]Onset: 591495-08-9637TvrygjihOacoocrgjg and other anemia (19 sources)Anemia; Translations: [Anemia, unspecified]95-16-5845Yvrdzdzw Deficiency and other anemia (20 sources)Iron deficiency anemia; Translations: [Iron deficiency anemia, unspecified]18-19-0002FlfbhhipSqkcokouyw and other anemia (4 sources)Anemia, unspecified; Translations: [Anemia, unspecified]06-10-2022 EpisodicDeficiency and other anemia (4 sources)Iron deficiency anemia, unspecified; Translations: [Iron deficiency anemia, unspecified]33-12-9219VbrbtslgAepcikomty and other anemia (2 sources)Other iron deficiency anemiasEpisodicDisorders usually diagnosed in infancy, childhood, or adolescence (20 sources)Non-organic primary nocturnal enuresis; Translations: [Enuresis not due to a substance or known physiological condition]ChronicEsophageal disorders (20 sources)Gastroesophageal reflux disease without esophagitis; Translations: [Gastro-esophageal reflux disease without esophagitis]Onset: 07-16-2021 Resolved: 49-50-4026UjajyklTynjrl infertility (20 sources)Anovulation; Translations: [Female infertility associated with anovulation]Onset: 749592-75-8330KbrkltwUlktl of unknown origin (16 sources)Fever; Translations: [Fever, unspecified]82-59-7364Ctdrlcaa Genitourinary symptoms and ill-defined conditions (2 sources)Painful micturition, unspecified; Translations: [Other microscopic hematuria]EpisodicHeadache; including migraine (1 source)Headache; including migraine; Translations: [Headache, unspecified] Onset: 55-67-1567Hivisxcnrh during ; abruptio placenta; placenta previa (4 sources)Bleeding from female genital tract during ; Translations: [Antepartum hemorrhage, unspecified, unspecified trimester]Onset: 10-18-2024 46-73-5088VxijeepkMrgeauehpmnwx and screening for infectious disease (8 sources)Patient encounter status; Translations: [Encounter for screening for infectious and parasitic diseases, unspecified]Onset: EpisodicMenstrual disorders (20 sources)Menorrhagia; Translations: [Excessive and frequent menstruation with regular cycle]ChronicMood disorders (20 sources)Bipolar disorder; Translations: [Bipolar affective disorder, currently depressed, mild]Onset: 812585-46-1578VljzvowIbnaqp and vomiting (16 sources)Vomiting; Translations: [Vomiting, unspecified]77-23-6303Awlsliqj Nutritional deficiencies (20 sources)Vitamin D deficiency; Translations: [Vitamin D deficiency, unspecified]Onset: 01-12-2019 Resolved: 975737-26-6266TedzpkfCqdifhvkwkh deficiencies (4 sources)Iron deficiency; Translations: [Vitamin A deficiency, unspecified] Onset: 07-16-2021 Resolved: 13-73-0362IjqnymbqEubyqirxquishk (20 sources)Arthritis of shoulder region joint; Translations: [Primary osteoarthritis, unspecified shoulder]ChronicOther complications of (5 sources)Maternal obesity complicating , childbirth and the puerperium, antepartum; Translations: [Obesity complicating , second trimester]29-01-5641YfedkigVftqv complications of (1 source)Obesity complicating , second trimester; Translations: [Obesity complicating , second trimester]Onset: 82-08-4617SikxbzeAazlr complications of (4 sources)Supervision of resulting from assisted reproductive technology, first trimester; Translations: [ resulting from assisted reproductive technology]Onset: 324325-02-8419VmhblrrpEocut complications of (2 sources)Conceived by in vitro fertilization; Translations: [Supervision of resulting from assisted reproductive technology, first trimester] 45-92-8802WntqsgthPkwiq complications of (12 sources)Hypothyroidism in ; Translations: [Endocrine, nutritional and metabolic diseases complicating , second trimester]Onset: 519904-29-3008MhefeuqfFpjxl complications of (9 sources)Bipolar disorder; Translations: [Other mental disorders complicating , second trimester]Onset: 545356-74-5457UawgpmgkLnxno complications of (2 sources)Supervision of resulting from assisted reproductive technology, unspecified trimester; Translations: [ resulting from assisted reproductive technology]Onset: 776481-04-7547TefojumhNkkth complications of (8 sources)Headache; Translations: [Other specified related conditions, second trimester]Onset: 148692-26-2788KvcrkycsUptse complications of (1 source)Other specified related conditions, second trimester; Translations: [Other specified related conditions, second trimester] Onset: 78-92-8522CabqygkkPjgmt complications of (1 source)Bariatric surgery status complicating , unspecified trimester; 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 complicating , unspecified trimester]Onset: 92-06-2526AuajpwrrZuihy complications of (1 source)Endocrine, nutritional and metabolic diseases complicating , second trimester; Translations: [Endocrine, nutritional and metabolic diseases complicating , second trimester]Onset: 92-29-1202AtzvwodeYxmgi complications of (1 source)Other mental disorders complicating , second trimester; Translations: [Other mental disorders complicating , second trimester] Onset: 34-22-0220MpdvpzhnAkuuy connective tissue disease (4 sources)Plantar tflosrhdh78-61-5884TarlremfMfbcc connective tissue disease (1 source)Lateral epicondylitis, right elbowEpisodicOther connective tissue disease (2 sources)Bursitis of right shoulderEpisodicOther connective tissue disease (20 sources)Disorder of ligament, unspecified site; Translations: [Laxity of ligament]EpisodicOther connective tissue disease (14 sources)Laxity of ligament; Translations: [Disorder of ligament, unspecified site]48-65-9138EbqtswovUxwybtg on above:right shoulderOther connective tissue disease (4 sources)Bilateral plantar fasciitis; Translations: [Plantar fasciitis, bilateral]Onset: Other female genital disorders (20 sources)Abnormal uterine bleeding; Translations: [Other specified abnormal uterine and vaginal bleeding]28-89-2773NuqcaxbAekmk gastrointestinal disorders (15 sources)Constipation; Translations: [Constipation, unspecified]06-08-2023 EpisodicOther gastrointestinal disorders (1 source)Constipation, unspecified; Translations: [Constipation, unspecified] 50-24-8414RrzoxtzwGjrkn gastrointestinal disorders (11 sources)History of bypass of stomach; 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]Onset: 827061-74-4390TkrrwqwoHwjrx hematologic conditions (4 sources)H/O: anemia - iron deficient; Translations: [Personal history of diseases of the blood and blood-forming organs and certain disorders involving the immune mechanism]34-62-3784HkddyldcSerle inflammatory condition of skin (1 source)Erythema intertrigoEpisodicOther nervous system disorders (20 sources)Chronic pain; Translations: [Other chronic pain]84-41-8873Rxvmqru Other nervous system disorders (2 sources)Other chronic pain; Translations: [Other chronic pain]ChronicOther nervous system disorders (12 sources)Carpal tunnel syndrome of right wrist; Translations: [Carpal tunnel syndrome, right upper limb]65-33-9262IrbfewqIjkro nervous system disorders (20 sources)Carpal tunnel syndrome, right upper limb; Translations: [Carpal tunnel syndrome]04-26-5124KbjdbniFcguy nervous system disorders (1 source)Postoperative pain ; Translations: [Post-op pain]EpisodicOther nervous system disorders (14 sources)Numbness of hand; Translations: [Anesthesia of skin]10-13-2023 EpisodicOther nervous system disorders (13 sources)Anesthesia of skin; Translations: [Disturbance of skin sensation] 01-54-8572XgzwaguyCvdmo non-traumatic joint disorders (16 sources)Derangement of right [...] right shoulder joint; Translations: [Other instability, right shoulder]02-91-1121HdvtxtmdYytgq nutritional; endocrine; and metabolic disorders (8 sources)Body mass index 40+ - severely obese; Translations: [Morbid obesity with BMI of 50.0-59.9, adult]Onset: 12-05-2018 Resolved: 350231-58-3765PqhjszpZtftk nutritional; endocrine; and metabolic disorders (4 sources)Morbid lcnufpl37-66-2209LlqzyjpAqsld and delivery including normal (16 sources)Early stage of ; Translations: [Encounter for supervision of normal , unspecified, unspecified trimester]Onset: 09-03-2024 11-67-4404NcpphwpoBqzwk screening for suspected conditions (not mental disorders or infectious disease) (5 sources)Thyroid function tests abnormal; Translations: [Abnormal results of thyroid function studies]Onset: 702399-00-3461ArkwyezuWtnwj skin disorders (1 source)Follicular disorder, unspecifiedEpisodicResidual codes; unclassified (20 sources)Obstructive sleep apnea syndrome; Translations: [Obstructive sleep apnea (adult) (pediatric)]80-75-1458UuvpktuYopvjtn on above:patient denies. sleep study 2010Residual codes; unclassified (18 sources)Other specified postprocedural states; Translations: [Other postprocedural status]Onset: 07-16-2021 Resolved: 70-79-0738YtigvzcbZcppbjsh codes; unclassified (15 sources)Chill; Translations: [Chills (without fever)]11-24-4688Jyrrcazu Residual codes; unclassified (20 sources)History of sleeve gastrectomy; Translations: [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]]74-78-6564OiicrliwQzgqrlx on above:Aprilesidual codes; unclassified (1 source)Chills (without fever); Translations: [Chills (without fever)] 26-85-1380SzztoulgCmocgina codes; unclassified (1 source)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]; Translations: [Personal history of surgery to other organs]51-20-7194NfwepzwtHqpkxtnl codes; unclassified (9 sources)History of arthroscopic procedure on shoulder; Translations: [Other specified postprocedural states]31-69-6837JeueekujVskajrum codes; unclassified (1 source)Gestation period, 9 weeks; Translations: [9 weeks gestation of ]82-65-4823FvljboxyVmhqhokk codes; unclassified (2 sources)Gestation period, 13 weeks; Translations: [13 weeks gestation of ]17-10-4272FhhqjgkjYvnuttna codes; unclassified (2 sources)Gestation period, 18 weeks; Translations: [18 weeks gestation of ]10-79-4593SsymmgdwYfojpcbj codes; unclassified (1 source)Gestation period, 20 weeks; Translations: [20 weeks gestation of ]79-55-4877NjberwhlDaqvryyo codes; unclassified (2 sources)Gestation period, 22 weeks; Translations: [22 weeks gestation of ]07-59-7239XuhjbkteHxsksdva codes; unclassified (2 sources)Gestation period, 26 weeks; Translations: [26 weeks gestation of ]73-59-3327QbwtpbplXsoyeoox codes; unclassified (2 sources)Gestation period, 29 weeks; Translations: [29 weeks gestation of ]58-75-8203LxsgpktcKvuqgobv codes; unclassified (2 sources)Gestation period, 31 weeks; Translations: [31 weeks gestation of ]79-85-5095XkzxmyngKqaj and subcutaneous tissue infections (20 sources)Abscess; Translations: [Cutaneous abscess, unspecified]08-01-2021 EpisodicSprains and strains (20 sources)Strain of unspecified muscle, fascia and tendon at shoulder and upper arm level, right arm, initialencounter; Translations: [Strain of other muscles, fascia and tendons at shoulder and upper arm level, right arm, initial encounter]EpisodicSubstance-related disorders (4 sources)Marijuana user; Translations: [Marijuana use]Onset: 12-05-2018 16-91-2502Omrcbvd disorders (20 sources)Hypothyroidism; Translations: [Acquired hypothyroidism]Onset: 12-05-2018 Resolved: 717894-47-5708PhttsftGuxselj disorders (6 sources)Disorder of thyroid gland; Translations: [Disorder of thyroid, unspecified]00-47-8660WikldvqvVpkvwhpdhuri (2 sources)History of sleeve gastrectomy; Translations: [Status post laparoscopic sleeve gastrectomy]Onset: 603117-71-6011Chssmhfmmmed (5 sources)Patient encounter status; Translations: [Pre-op testing]09-03-2018 Unclassified (1 source) 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)15-42-6501Fwdhuxnmikng (20 sources)OB RemindersOnset: 89-49-612007999501-86-7983Nxuqkvvpcmmi (2 sources)keep next scheduled appointmentUnclassified (1 source)IUI pregnancyOnset: 67-82-4153Giixwyrswlyb (1 source)Pee's ThyroiditisOnset: 12-05-2024 Past or Other Problems Problem ClassificationProblemDateDocumented DateEpisodic/ChronicScreening and history of mental health and substance abuse codes (1 source)Personal history of nicotine dependenceOnset: 07-16-2021 Resolved: 61-59-9112YiljgfpsHnhricuefrrk (3 sources)History of bypass of aabqvqr19-50-2783Ipadoebztfjc (1 source)Encounter for supervision of resulting from assisted reproductive technology, ycsnuyjtkd72-49-0408MJXXXEV: Highlighted row has been ruled out!Unclassified (1 source)No known active yrybmbwp04-58-2525 Results Test NameValueInterpretationReference RangeFacilityUS OB BPP W NON-STRESS on 37-38-3083[place] [address] Ultrasound Report Signed Patient: JAZ SANDERS MR#: [id number] : 1995 Acct:[id number] Age/Sex: 29 / F ADM Date: 02/25/25 Loc: US Attending Dr: Les Martinez D.O. Ordering Physician: Les Martinez D.O. Date of Service: 02/25/25 Procedure(s): US OB BPP w non-stress Accession Number(s): [id number] cc: Les Martinez D.O.; AMANDA FORD [place] [id number] Patient Name: JAZ SANDERS MRN: [id number] date: 1995 Sex: F Assigned Patient Location: [facility] Current Patient Location: Accession/Order Number: [id number] Exam Date: 02/25/2025 14:03 Report Date: 02/26/2025 [...] Umana M.D. 02/26/2025 8:30 AM Dictation Location: [place] [address] Electronically authenticated by: [id number] Y Date: 02/26/2025 08:30 Dictated By: Alana Umana M.D. Signed By: 02/26/25831 DD/ 9 TD/TT: Skip Operator:TBHRadiology, Radiologist, MD - 02/26/2025 [place] [address] Ultrasound Report Signed Patient: JAZ SANDERS MR#: [id number] : 1995 Acct:[id number] Age/Sex: 29 / F ADM Date: 02/25/25 Loc: US Attending Dr: Les Martinez D.O. Ordering Physician: Les Martinez D.O. Date of Service: 02/25/25 Procedure(s): US OB BPP w non-stress Accession Number(s): [id number] cc: Les Martinez D.O.; AMANDA FORD [address] [address] Patient Name: JAZ SANDERS MRN: [id number] date: 1995 Sex: F Assigned Patient Location: [facility] Current Patient Location: Accession/Order Number: [id number] Exam Date: 02/25/2025 14:03 Report Date: 02/26/2025 [...] Umana M.D. 02/26/2025 8:30 AM Dictation Location: [place] [address] Electronically authenticated by: [id number] Y Date: 02/26/2025 08:30 Dictated By: Alana Umana M.D. Signed By: 02/26/25831 DD/ 9 TD/TT: Skip Operator: GUDELIA HealthcareRadiology Study observation (narrative)NOMS HealthcareUS OB BPP W NON-STRESSOrdered By: Radiologist Radiology on 20-86-0477IBKUNortheast Regional Medical Center Work Phone: aLL THYROID STIM HORMONEon 41-41-0775HZQ Qn1.347 m[IU]/LNOMS HealthcareCLINISYNCNOMS HealthcareUrinalysis macro (dipstick) panel (U)on 84-78-4270Sxluwilai, UANegativeNegative - 4(70) +++ mg/dLNOMS Healthcare Blood, UANegativeNegative - 50 Yehuda/mcLNOMS HealthcareClarity, UAClearNOMS HealthcareColor, UAYellowNOMS HealthcareGlucose, UANegativeNegative - 2000(110) ++++ mg/dLNONV HealthcareInterpretation and review of laboratory resultsNormal NOMS HealthcareKetones, UANegativeNegative - 160(16) ++++ mg/dLNOMS Healthcare Leukocytes, UANegativeNegative - 500+++ Kourtney/mcLNONV HealthcareNitrite, UA NegativeNegative - PositiveNOMS HealthcarepH, UA6.05 - 9NOMS HealthcareProtein, UANegativeNegative - 2000(20) ++++ mg/dLNOMS HealthcareSpec Grav, UA1.0201 - 1.03NONV HealthcareUrobilinogen, UA1.00.2 - 12 mg/dLNOMS HealthcareNOMS HealthcareUrinalysis macro (dipstick) panel (U)on 18-55-1893Dvxqbiyvk, UA NegativeNegative - 4(70) +++ mg/dLNONV HealthcareBlood, UANegativeNegative - 50 Yehuda/mcLNONV HealthcareClarity, UAClearNOMS HealthcareColor, UAYellowNONV HealthcareGlucose, UANegativeNegative - 2000(110) ++++ mg/dLNONV Healthcare Interpretation and review of laboratory resultsAbnormalNOMS HealthcareKetones, UAPositiveNegative - 160(16) ++++ mg/dLLAKEVIEW HOSPITAL HealthcareLeukocytes, UATrace Negative - 500+++ Kourtney/mcLLAKEVIEW HOSPITAL HealthcareNitrite, UANegativeNegative - Positive NOMS HealthcarepH, UA6.55 - 9NOMS HealthcareProtein, UANegativeNegative - 2000(20) ++++ mg/dLNONV HealthcareSpec Grav, UA1.0101 - 1.03NONV Healthcare Urobilinogen, UA2.00.2 - 12 mg/dLNOMS [facility] Rehabilitation HospitalNOMS HealthcareUS OB FOLLOW UP TRANSABDOMINAL APPROACHon 49-37-1472CR OB FOLLOW UP TRANSABDOMINAL APPROACH FINDINGS: Comparison [...] Delivery: 04/23/25 Gestational Age as of 01/16/2025: 82e4dMxxprvyrpz macro (dipstick) panel (U)on 20-83-1403Usblrcjnd, UANegativeNegative - 4(70) +++ mg/dLNOMS HealthcareBlood, UANegativeNegative [...] mg/dLNOMS HealthcareNOMS Healthcare ALL THYROID STIM HORMONEon 80-52-6831UCX Qn2.449 m[IU]/LNOMS HealthcareCLINISYNC NOMS HealthcareALL CBC WITH AUTO DIFFon 65-98-6404UYLHOFTHW ABSOLUTE UCYP1JTUB HealthcareBasophils/100 WBC (Bld)0.3 %0.2 - 2.0 %NOMS HealthcareEosinophils/100 WBC (Bld)1.2 %0.9 - 7.0 %[facility] HealthcareErythrocyte distribution width (RBC) [Ratio]13.2 %11.0 - 15.0 %[facility] HealthcareHematocrit (Bld) [Volume fraction]35.6 %Low36.0 - 48.0 %[facility] HealthcareHemoglobin (Bld) [Mass/Vol]12 g/dL12.0 - 16.0 g/dLNortheast Regional Medical CenterIMMATURE GRANULOCYTES ABS AUTO0.1HighNOEllis Fischel Cancer CenterImmature granulocytes/100 WBC (Bld)0.8 %High0.0 - 0.5 %[facility] HealthcareInterpretation and review of laboratory resultsAbnormalNortheast Regional Medical CenterLYMPHOCYTES ABSOLUTE AUTO2.3 NOMCarondelet HealthLymphocytes/100 WBC (Bld)19.7 %Low20.5 - 60.0 %[facility] Medical CenterH (RBC) [Entitic mass]29.6 pg26.7 - 34.0 pgNortheast Regional Medical CenterMCHC (RBC) [Mass/Vol] 33.7 g/dL29.9 - 35.2 g/dLNortheast Regional Medical CenterMCV (RBC) [Entitic vol]87.7 fL81.0 - 99.0 fLNortheast Regional Medical CenterMONOCYTES ABSOLUTE AUTO0.7NOEllis Fischel Cancer CenterMonocytes/100 WBC (Bld)6.2 %1.7 - 12.0 %[facility] CenterNEUTROPHILS ABSOLUTE AUTO8.5HighNOEllis Fischel Cancer CenterNeutrophils/100 WBC (Bld)71.8 %43.0 - 75.0 %[facility] Medical CenterPlatelet mean volume (Bld) [Entitic vol]8.7 fLLow9.5 - 13.5 fLNortheast Regional Medical CenterTBH EO #0.1 [facility] CenterTB [id number] [facility] Healthcare RBC4.06LowNOEllis Fischel Cancer CenterTB WBC11.8 HighNortheast Regional Medical CenterCLINISYNCNSSM Saint Mary's Health CenterGLUCOSE 1 HOURon 20-29-0292Qjjchyj [Mass/Vol]118 mg/dLNINF - 130 mg/dLLifeBrite [facility] Urinalysis macro (dipstick) panel (U)on 73-09-1826Smvsbyrzb, UANegativeNegative - 4(70) +++ mg/dLNOMS HealthcareBlood, UANegativeNegative - 50 Yehuda/mcLNOMS HealthcareClarity, UAClearNOMS HealthcareColor, UAYellowNOMS HealthcareGlucose, UANegativeNegative - 2000(110) ++++ mg/dLNONV HealthcareInterpretation and review of laboratory resultsNormalNOMS HealthcareKetones, UANegativeNegative - 160(16) ++++ mg/dLNONV HealthcareLeukocytes, UANegativeNegative - 500+++ Kourtney/mcL NOMS HealthcareNitrite, UANegativeNegative - PositiveNOMS HealthcarepH, UA75 - 9 NOMS HealthcareProtein, UANegativeNegative - 2000(20) ++++ mg/dLNONV Healthcare Spec Grav, UA1.011 - 1.03NOMS HealthcareUrobilinogen, UA1.00.2 - 12 mg/dLNONV HealthcareNONV HealthcareNo Panel Informationon 89-11-3179IERPMDCMBGHUK HealthcareTB UA (CLEAN/CATCH) CAR COUPLER/MICRO IF IND.on 07-52-9774NVCBLJDZE URINE NegativeNEGATIVENOMS HealthcareBLOOD URINESMALLAbnormalNEGATIVENONV Healthcare Clarity (U)CLEARCLEARNOMS HealthcareColor (U)LT. YELLOWYELLOWNONV Healthcare GLUCOSE URINE UANegativeNEGATIVE mg/dLNONV HealthcareInterpretation and review of laboratory resultsAbnormalNOMS HealthcareKetones Ql (U)NegativeNEGATIVE mg/dL NOM HealthcareLeukocyte esterase Test strip Ql (U)NegativeNEGATIVENOMS HealthcareNITRITE URINENegativeNEGATIVENOMS HealthcarepH (U)5.5 [pH]5.0 - 9.0 NOMS HealthcarePROTEIN URINENegativeNEG/TRACE mg/dLNONV HealthcareSPECIFIC GRAVITY URINE1.0151.005 - 1.025NONV HealthcareURINE MICROSCOPIC INDICATEDYESNONV HealthcareUROBILINOGEN URINE0.2 EU/dL0.2 - 1.0 EU/dLNortheast Regional Medical CenterTB URINE MICROSCOPIC ONLYon 67-85-2838MSFLNXNE URINENONE SEENNONE SEEN #/HPFNOMS HealthcareCAST SEEN?NONE SEENNONE SEEN #/LPFNOMS HealthcareCRYSTALS SEEN?None SeenNone Seen #/HPFNOMS HealthcareMUCUS URINENONE SEENNONE SEENNONV Healthcare SQUAMOUS EPITHELIAL CELL URINERARENONE/RARE #/LPFNOEllis Fischel Cancer CenterTBH RBC0-2N[facility] HospitalTB WBCNONE SEENNONE SEEN #/HPFNOEllis Fischel Cancer CenterURINE CULTURE INDICATED NONOMS HealthcareUS OB 14+ WEEKS ANATOMY SCANon 78-15-7129SU OB 14+ WEEKS ANATOMY SCANEXAM: US OB [...] II, MD, PHD at 06-Dec-2024 08:04:50 AM [facility] TeleradiologyNormalNot AvailableComment on above:Order Comment: US OB ANATOMY SINGLE W US OB CERVICAL LENGTH Estimated Date of Delivery: 04/23/25 Gestational Age as of 11/20/2024: 27b8xGnvxcmihhk complete panel (U)on 12-03-2024 Comment c/o urinary symptoms or increased blood pressure Name Collection Type:: VoidedFIRELANDSNOMS HealthcareAppearance of Urineon 83-72-0352Ptmajfmfcu (U)ClearNormalClearNOMS HealthcareComment on above:Order Comment: Comment c/o urinary symptoms or increased blood pressure Name Collection Type:: VoidedPerformed By: #### ADDONUAPLUS #### [address] [address] USABacteria [Presence] in Urine by AutomatedOrdered By: Eduardo Cruz on 62-84-2958Rplvxhoc Auto Ql (U)1+ [HPF]HighNone SeenKeenan Private HospitalBilirubin Test strip Ql (U)Ordered By: Eduardo Cruz on 42-05-0849Zkwrrnavh Ql (U)NegativeNegativeKeenan Private HospitalColor of Urine by Autoon 41-05-1638Haiiu (U)Light-YellowNormalYellowNOMS Healthcare Comment on above:Order Comment: Comment c/o urinary symptoms or increased blood pressure Name Collection Type:: VoidedPerformed By: #### ADDONUAPLUS #### [facility] [address] [place] [address] USADipstick and Microscopicon 11-70-8518Hiaffbzu,Urine1+ [HPF]NormalNone SeenCleveland Clinic Martin South Hospital Physician GroupComment on above:Order Comment: Comment c/o urinary symptoms or increased blood pressure Name Collection Type:: VoidedPerformed By: #### ADDONUAPLUS #### [address] [address] USABILIRUBIN,URINENegativeNormalNegativeNOMS Healthcare Comment on above:Order Comment: Comment c/o urinary symptoms or increased blood pressure Name Collection Type:: VoidedPerformed By: #### ADDONUAPLUS #### [place] [address] USAGlucose Ql (U)NormalNormalNormalNOMS HealthcareComment on above:Order Comment: Comment c/o urinary symptoms or increased blood pressure Name Collection Type:: VoidedPerformed By: #### ADDONUAPLUS #### [place] [address] USAHyaline Casts,UrineNoneNormal0-8The [facility] Physician GroupComment on above:Order Comment: Comment c/o urinary symptoms or increased blood pressure Name Collection Type:: VoidedPerformed By: #### ADDONUAPLUS #### [place] [address] USAMucus,Urine1+ [LPF]Critically abnormalThe [facility] Physician GroupComment on above:Order Comment: Comment c/o urinary symptoms or increased blood pressure Name Collection Type:: VoidedResult Comment: PERFORMED BY: [place] [address] PATHOLOGIST RETAIL ASSISTANT DAMIÁN DOSHI M.D.Performed By: #### ADDONUAPLUS #### [place] [address] USANITRITE,URINENegativeNormalNegativeNOMS HealthcareComment on above:Order Comment: Comment c/o urinary symptoms or increased blood pressure Name Collection Type:: VoidedPerformed By: #### ADDONUAPLUS #### [place] [address] USAOCCULT BLOOD,URINE3+NormalNegativeNOMS HealthcareComment on above:Order Comment: Comment c/o urinary symptoms or increased blood pressure Name Collection Type:: VoidedResult Comment: PERFORMED BY: [place] [address] PATHOLOGIST RETAIL ASSISTANT DAMIÁN DOSHI M.D.Performed By: #### ADDONUAPLUS #### [facility] [address] [place] [address] USAPROTEIN,URINENegativeNormalNegativeNOMS HealthcareComment on above:Order Comment: Comment c/o urinary symptoms or increased blood pressure Name Collection Type:: VoidedPerformed By: #### ADDONUAPLUS #### [place] [address] USARBC,Ocmgw1-0Itboao4-4Sfr [facility] Physician GroupComment on above:Order Comment: Comment c/o urinary symptoms or increased blood pressure Name Collection Type:: VoidedPerformed By: #### ADDONUAPLUS #### [place] [address] USASPECIFICY GRAVITY,URINE1.781Zgwymo4.001-1.030NOMS HealthcareComment on above:Order Comment: Comment c/o urinary symptoms or increased blood pressure Name Collection Type:: VoidedPerformed By: #### ADDONUAPLUS #### [place] [address] USASquamous Epithelial Cell,Moarc7-6Yuxojo2-8Fdd [facility] Physician GroupComment on above:Order Comment: Comment c/o urinary symptoms or increased blood pressure Name Collection Type:: VoidedPerformed By: #### ADDONUAPLUS #### [place] [address] USAUROBILINOGEN,URINENormalNormalNormalNOMS HealthcareComment on above:Order Comment: Comment c/o urinary symptoms or increased blood pressure Name Collection Type:: VoidedPerformed By: #### ADDONUAPLUS #### [place] [address] USAWBC,Ppnxz5-3Mgkvem4-6Qmx [facility] Physician GroupComment on above:Order Comment: Comment c/o urinary symptoms or increased blood pressure Name Collection Type:: VoidedPerformed By: #### ADDONUAPLUS #### [place] [address] USAEpithelial cells.squamous [#/area] in Urine sediment by Automated countOrdered By: Eduardo Cruz on 52-40-0877Lxfegwajdt cells.squamous Auto (Urine sed) [#/Area]1-2 [HPF]0-2FSalem Regional Medical Center Erythrocytes [#/area] in Urine sediment by Automated countOrdered By: Eduardo Cruz on 54-13-2860ULU Auto (Urine sed) [#/Area]1-2 [HPF]0-4FSalem Regional Medical CenterGlucose [Mass/volume] in Urine by Test stripOrdered By: Eduardo Cruz on 62-11-2786Qcdqwww Test strip (U) [Mass/Vol]Normal mg/dLNormalKeenan Private HospitalHemoglobin Test strip Ql (U)Ordered By: Eduardo Cruz on 51-08-2634Azyriejdzy Ql (U)3+HighNegativeKeenan Private Hospital Hyaline casts [#/area] in Urine sediment by Automated countOrdered By: Eduardo Cruz on 20-73-7706Wjisvyc casts Auto (Urine sed) [#/Area]None [LPF]0-8Keenan Private HospitalKetones [Presence] in Urine by Test stripon 12-02-2024 Ketones Ql (U)NegativeNormalNegativeNOMS HealthcareComment on above:Order Comment: Comment c/o urinary symptoms or increased blood pressure Name Collection Type:: VoidedPerformed By: #### ADDONUAPLUS #### [facility] [address] [place], [place] [address] USALeukocyte esterase [Presence] in Urine by Test stripon 39-28-9495Xnavfrwpl esterase Test strip Ql (U)NegativeNormalNegativeNOMS HealthcareComment on above:Order Comment: Comment c/o urinary symptoms or increased blood pressure Name Collection Type:: VoidedPerformed By: #### ADDONUAPLUS #### [facility] [address] [place], [place] [address] USALeukocytes [#/area] in Urine sediment by Automated count Ordered By: Eduardo Cruz on 39-38-7195JGP Auto (Urine sed) [#/Area]1-2 [HPF]0-4 [facility] HospitalMucus [Presence] in Urine by AutomatedOrdered By: Eduardo Cruz on 05-42-5660Poeom Auto Ql (U)1+ [LPF]AbnormalKeenan Private HospitalNitrite Test strip Ql (U)Ordered By: Eduardo Cruz on 88-67-8568Irkzhgz Ql (U)NegativeNegWhite HospitalProtein Test strip (U) [Mass/Vol]Ordered By: Eduardo Cruz on 14-68-9380Cejhnhm (U) [Mass/Vol]NegativeNegativeCoshocton Regional Medical Centerpecific gravity Test strip (U) [Rel density]Ordered By: Eduardo Cruz on 48-40-5663Nxeodytq gravity (U) [Rel density]1.0171.001-1.030Keenan Private HospitalUrobilinogen Test strip (U) [Mass/Vol]Ordered By: Eduardo Cisneroscarlos on 49-93-0886Emwgmxmyzemp (U) [Mass/Vol]Normal mg/dLNormTrinity Health System East CampuspH of Urine by Test stripon 92-38-4362jN (U)5.5 [pH]Normal5.0-9.0NOMS HealthcareComment on above:Order Comment: Comment c/o urinary symptoms or increased blood pressure Name Collection Type:: VoidedPerformed By: #### ADDONUAPLUS #### [place] [address] USABasophils Auto (Bld) [#/Vol]Ordered By: Elizabeth Osborne ([place]) on 02-31-8206Pgskkizrn (Bld) [#/Vol]0.0 10 3/uL0.0-0.1FSalem Regional Medical CenterBasophils/100 WBC Auto (Bld)Ordered By: Elizabeth Osborne ([place]) on 13-78-0798Rcsorszbw/100 WBC (Bld)0.3 %0.2-2.0[facility] Eosinophils/100 WBC Auto (Bld)Ordered By: (Roman) Elizabeth Osborne on 12-01-2024 Eosinophils/100 WBC (Bld)1.8 %0.9-7.0[facility] Erythrocyte distribution width Auto (RBC) [Ratio]Ordered By: Elizabeth Osborne ([place]) on 06-52-4091Wpwmelujjsa distribution width (RBC) [Ratio]14.0 %11.0-15.0 [facility] HospitalGlobulin Calc (S) [Mass/Vol]Ordered By: ([place]) Elizabeth Osborne on 81-36-9709Hnjmjixd (S) [Mass/Vol]3.6 g/dLKeenan Private HospitalGlomerular filtration rate (GFR) estimation in non- AmericanOrdered By: (Roman) Elizabeth [place] on 78-89-7921MTF/1.73 sq M.predicted among non-blacks MDRD (S/P/Bld) [Vol rate/Area]mL/min/{1.73_m2}>=60 mL/min/1.73m 2FSalem Regional Medical CenterHematocrit Auto (Bld) [Volume fraction]Ordered By: (Roman) Elizabeth Osborne on 99-32-7250Omhxqtvjom (Bld) [Volume fraction]38.0 %36.0-48.0[facility] HospitalHemoglobin [Mass/volume] in BloodOrdered By: (Roman) Elizabeth Osborne on 27-70-4598Iineaguyig (Bld) [Mass/Vol]13.0 g/dL12.0-16.0[facility] HospitalLaboratory - Chemistry and Chemistry - challengeOrdered By: (Roman) Elizabeth Osborne on 26-01-8747Rmiskbxqi Ql (U)NegativeNEGATIVEKeenan Private Hospital Glucose (U) [Mass/Vol]NegativeNEGATIVEKeenan Private HospitalKetones Ql (U)NegativeNEGATIVEKeenan Private HospitalpH (U)6.0 [pH]5.0-9.0 [facility] Centerpecific gravity (U) [Rel density]1.025 1.005-1.025Ke[facility]an Private HospitalUrobilinogen Qn (U)1.0 {Fabián'U}/dL0.2-1.0[facility] HospitalAlbumin [Mass/Vol]3.1 g/dL Low3.4-5.0[facility] HospitalALP [Catalytic activity/Vol]45 U/LLow 46-116Ke[facility] Private HospitalALT [Catalytic activity/Vol]20 U/L14-59 [facility] HospitalAST [Catalytic activity/Vol]14 U/TEgi84-76 [facility] HospitalBilirubin [Mass/Vol]0.4 mg/dL0.2-1.0[facility] HospitalCalcium [Mass/Vol]8.6 mg/dL8.5-10.1FSalem Regional Medical CenterChloride [Moles/Vol]106 mmol/S92-447FkxowprmfKeenan Private HospitalCO2 [Moles/Vol]25.7 mmol/L21.0-32.0[facility] Creatinine [Mass/Vol]0.37 mg/dLLow0.55-1.02[facility] GFR/1.73 sq M.predicted MDRD (S/P/Bld) [Vol rate/Area]mL/min/{1.73_m2}>=60 mL/min/1.73m 2FSalem Regional Medical CenterGlucose [Mass/Vol]61 mg/dLLow 74-106Ke[facility] Private HospitalPotassium [Moles/Vol]3.9 mmol/L3.5-5.1 [facility] HospitalProtein [Mass/Vol]6.7 g/dL6.4-8.2FWestern Reserve Hospitalodium [Moles/Vol]139 mmol/X174-024QptcmdldbKeenan Private HospitalUrea nitrogen [Mass/Vol]3.0 mg/dLLow7.0-18.0[facility] HospitalUrea nitrogen/Creatinine [Mass ratio]8.1 mg/mgKeenan Private HospitalLaboratory - Hematology and Cell countsOrdered By: Elizabeth Osborne ([place]) on 41-45-8152Ydqdnygk granulocytes/100 WBC (Bld)1.0 %High0.0-0.5 [facility] HospitalLaboratory - Specimen informationOrdered By: Elizabeth Osborne ([place]) on 57-76-5336Xvmylfrkaq (U)CLEARCLEARFSalem Regional Medical CenterColor (U)LT. YELLOWYELLOWKeenan Private Hospital Laboratory - UrinalysisOrdered By: Elizabeth Osborne ([place]) on 64-92-7480Pkxkpkkay esterase Test strip Ql (U)NegativeNEGATIVEKeenan Private Hospital Nitrite Ql (U)NegativeNEGATIVEKeenan Private HospitalProtein Ql (U) NegativeNEG/TRACEKeenan Private HospitalLeukocytes [#/volume] corrected for nucleated erythrocytes in Blood by Automated counOrdered By: (Owens) Elizabeth Osborne on 57-19-6254VPZ corrected for nucl RBC Auto (Bld) [#/Vol]10.0 10 3/uL4.0-11.0[facility] HospitalLymphocytes Auto (Bld) [#/Vol]Ordered By: (Owens) Elizabethnura Thomason on 36-12-1487Abjheusnyct (Bld) [#/Vol]2.2 10 3/uL1.2-3.8[facility] HospitalLymphocytes/100 WBC Auto (Bld)Ordered By: (Owens) Elizabethnura Thomason on 95-70-9880Yjcmuhvcdtl/100 WBC (Bld)22.1 %20.5-60.0[facility] Auto (RBC) [Entitic mass]Ordered By: (Owens) Elizabethnura Thomason on 49-82-7442GLK (RBC) [Entitic mass] 29.8 pg26.7-34.0[facility] Private HospitalMCHC Auto (RBC) [Mass/Vol] Ordered By: (Owens) Elizabethnura Thomason on 51-98-2336AZNT (RBC) [Mass/Vol]34.2 g/dL 29.9-35.2FSalem Regional Medical CenterMCV Auto (RBC) [Entitic vol]Ordered By: (Owens) Elizabethnura Thomason on 49-45-1322YPC (RBC) [Entitic vol]87.2 fL81.0-99.0 [facility] HospitalMonocytes Auto (Bld) [#/Vol]Ordered By: (Owens) Elizabethnura Thomason on 93-64-8772Bjmovzyvb (Bld) [#/Vol]0.7 10 3/uL0.3-0.8 [facility] HospitalMonocytes/100 WBC Auto (Bld)Ordered By: (Owens) Elizabeth [place] on 28-53-9828Xsuaadnvp/100 WBC (Bld)6.5 %1.7-12.0 [facility] HospitalNeutrophils Auto (Bld) [#/Vol]Ordered By: (Owens) Elizabeth [place] on 92-18-1745Havfvcxgrqb (Bld) [#/Vol]6.9 10 3/uLHigh 1.4-6.5FSalem Regional Medical CenterNeutrophils/100 WBC Auto (Bld)Ordered By: Angelina) Elizabeth Osborne on 81-54-5233Jllteeeyxvx/100 WBC (Bld)68.3 %43.0-75.0 [facility] HospitalNo Panel InformationOrdered By: (Roman) Elizabeth Osborne on 93-48-3315Qsscj Microscopic ReviewNOKeenan Private HospitalUrine Occult BloodNegativeNEGATIVEKeenan Private Hospital Eosinophils # (Auto)0.2 10 3/uL0.0-0.7FSalem Regional Medical CenterImmature Granulocyte # (Auto)0.10 10 3/uLHigh0.00-0.03[facility] Platelet mean volume Auto (Bld) [Entitic vol]Ordered By: Elizabeth Osborne ([place]) on 01-98-8460Wkjgfqsb mean volume (Bld) [Entitic vol]8.3 fLLow9.5-13.5FSalem Regional Medical CenterPlatelets Auto (Bld) [#/Vol]Ordered By: Angelina) Elizabeth Osborne on 57-88-0669Nurtxwyev (Bld) [#/Vol]177 10 3/cV503-384KiwfeelecKeenan Private HospitalRBC Auto (Bld) [#/Vol]Ordered By: Angelina) Elizabeth Osborne on 93-07-6581QEX (Bld) [#/Vol]4.36 10 6/uL4.20-5.40[facility] Medical Centererum or plasma albumin/globulin mass ratioOrdered By: (Roman) Elizabeth Osborne on 36-01-0703Whezqyi/Globulin [Mass ratio]0.9 {ratio}[facility] Medical Centererum or plasma anion gap determinationOrdered By: Angelina) Elizabeth Osborne on 52-26-0628Wfniw gap [Moles/Vol]11.2 mmol/LFSalem Regional Medical CenterBasophils Auto (Bld) [#/Vol]Ordered By: Chris Dickerson on 44-37-1526Psuttdqrn (Bld) [#/Vol]0.0 10 3/uL0.0-0.1FSalem Regional Medical CenterBasophils/100 WBC Auto (Bld)Ordered By: Chris Dickerson on 11-30-2024 Basophils/100 WBC (Bld)0.2 %0.2-2.0[facility] Eosinophils/100 WBC Auto (Bld)Ordered By: Chris Dickerson on 11-30-2024 Eosinophils/100 WBC (Bld)1.7 %0.9-7.0[facility] Erythrocyte distribution width Auto (RBC) [Ratio]Ordered By: Chris Dickerson on 29-83-3753Ptdqoopfazb distribution width (RBC) [Ratio]14.1 %11.0-15.0[facility] HospitalGlobulin Calc (S) [Mass/Vol]Ordered By: Chris Dickerson on 77-39-9905Byrxbkwh (S) [Mass/Vol]3.3 g/dLKeenan Private Hospital Glomerular filtration rate (GFR) estimation in non- AmericanOrdered By: Chris Dickerson on 32-66-3579YKP/1.73 sq M.predicted among non-blacks MDRD (S/P/Bld) [Vol rate/Area]mL/min/{1.73_m2}>=60 mL/min/1.73m 2FSalem Regional Medical CenterHematocrit Auto (Bld) [Volume fraction]Ordered By: Chris Dickerson on 01-05-9480Ejdsvpdktn (Bld) [Volume fraction]36.2 %36.0-48.0[facility] HospitalHemoglobin [Mass/volume] in BloodOrdered By: Chris Dickerson on 19-98-0198Noqczppabx (Bld) [Mass/Vol]12.6 g/dL12.0-16.0[facility] HospitalLaboratory - Chemistry and Chemistry - challengeOrdered By: Chris Dickerson on 55-68-0318Iobxybois Ql (U)NegativeNEGATIVEKeenan Private HospitalGlucose (U) [Mass/Vol]NegativeNEGATIVEKeenan Private HospitalKetones Ql (U)NegativeNEGATIVEKeenan Private HospitalpH (U)6.0 [pH]5.0-9.0[facility] Medical Centerpecific gravity (U) [Rel density] 1.0151.005-1.025[facility] HospitalUrobilinogen Qn (U)1.0 {Fabián'U}/dL0.2-1.0[facility] HospitalAlbumin [Mass/Vol]3.1 g/dL Low3.4-5.0[facility] HospitalALP [Catalytic activity/Vol]47 U/L 46-116[facility] HospitalALT [Catalytic activity/Vol]20 U/L14-59 [facility] HospitalAST [Catalytic activity/Vol]12 U/RBdq01-42 [facility] HospitalBilirubin [Mass/Vol]0.3 mg/dL0.2-1.0[facility] HospitalBilirubin.direct [Mass/Vol]0.1 mg/dL0.0-0.2FSalem Regional Medical CenterCalcium [Mass/Vol]8.8 mg/dL8.5-10.1FSalem Regional Medical CenterChloride [Moles/Vol]108 mmol/XZotz48-351UvaonegitKeenan Private HospitalCO2 [Moles/Vol]26.0 mmol/L21.0-32.0[facility] Creatinine [Mass/Vol]0.32 mg/dLLow0.55-1.02[facility] GFR/1.73 sq M.predicted MDRD (S/P/Bld) [Vol rate/Area]mL/min/{1.73_m2}>=60 mL/min/1.73m 2FSalem Regional Medical CenterGlucose [Mass/Vol]74 mg/yK10-430 [facility] HospitalPotassium [Moles/Vol]4.1 mmol/L3.5-5.1FSalem Regional Medical CenterProtein [Mass/Vol]6.4 g/dL6.4-8.2FWestern Reserve Hospitalodium [Moles/Vol]142 mmol/E230-777DkrqxyxueKeenan Private HospitalUrate [Mass/Vol]3.0 mg/dL2.6-6.0[facility] HospitalUrea nitrogen [Mass/Vol]7.0 mg/dL7.0-18.0[facility] HospitalUrea nitrogen/Creatinine [Mass ratio]21.9 mg/mgKeenan Private Hospital Laboratory - Hematology and Cell countsOrdered By: Chris Dickerson on 11-30-2024 Immature granulocytes/100 WBC (Bld)0.7 %High0.0-0.5FSalem Regional Medical CenterLaboratory - Specimen informationOrdered By: Chris Dickerson on 11-30-2024 Appearance (U)CLEARCLEARFSalem Regional Medical CenterColor (U)LT. YELLOW YELLOWKeenan Private HospitalLaboratory - UrinalysisOrdered By: Chris Dickerson on 72-93-4423Xfvsgxiyc esterase Test strip Ql (U)SMALLAbnormal NEGATIVEKeenan Private HospitalMucus Ql (Urine sed)TRACEAbnormalNONE SEENKeenan Private HospitalNitrite Ql (U)NegativeNEGATIVEKeenan Private HospitalProtein Ql (U)NegativeNEG/TRACEKeenan Private HospitalLeukocytes [#/volume] corrected for nucleated erythrocytes in Blood by Automated counOrdered By: Chris Dickerson on 77-56-4544HTU corrected for nucl RBC Auto (Bld) [#/Vol]8.7 10 3/uL4.0-11.0[facility] Lymphocytes Auto (Bld) [#/Vol]Ordered By: Chris Dickerson on 98-91-5128Hfkrbufrynb (Bld) [#/Vol]2.0 10 3/uL1.2-3.8[facility] HospitalLymphocytes/100 WBC Auto (Bld)Ordered By: Chris Dickerson on 23-14-4826Fxdlhedatew/100 WBC (Bld) 22.9 %20.5-60.0[facility] Auto (RBC) [Entitic mass] Ordered By: Chris Dickerson on 51-99-6647EJX (RBC) [Entitic mass]30.0 pg26.7-34.0 [facility] HospitalMCHC Auto (RBC) [Mass/Vol]Ordered By: Chris Dickerson on 59-62-5698ERPD (RBC) [Mass/Vol]34.8 g/dL29.9-35.2FSalem Regional Medical CenterMCV Auto (RBC) [Entitic vol]Ordered By: Chris Dickerson on 33-68-5346IFM (RBC) [Entitic vol]86.2 fL81.0-99.0[facility] HospitalMonocytes Auto (Bld) [#/Vol]Ordered By: Chris Dickerson on 11-30-2024 Monocytes (Bld) [#/Vol]0.6 10 3/uL0.3-0.8[facility] Monocytes/100 WBC Auto (Bld)Ordered By: Chris Dickerson on 19-37-3411Kqstidrru/100 WBC (Bld)7.2 %1.7-12.0[facility] HospitalNeutrophils Auto (Bld) [#/Vol]Ordered By: Chris Dickerson on 62-83-4218Tntlzqtbytl (Bld) [#/Vol]5.9 10 3/uL1.4-6.5FSalem Regional Medical CenterNeutrophils/100 WBC Auto (Bld) Ordered By: Chris Dickerson on 14-26-9014Khfouqkhmzg/100 WBC (Bld)67.3 %43.0-75.0 [facility] HospitalNo Panel InformationOrdered By: Chris Dickerson on 64-66-2561Nmjoj BacteriaMODERATE #/HPFAbnormalNONE [facility] HospitalUrine Culture ReflexedYE-[facility] Urine Occult BloodNegativeNEGATIVEKeenan Private HospitalUrine Other CastsNONE SEEN #/LPFNONE [facility] HospitalUrine Other CrystalsNone Seen #/HPFNone [facility] HospitalUrine RBC0-2 #/HPF0-2FSalem Regional Medical CenterUrine Squamous Epithelial CellsFEW #/LPFAbnormalNONE/RAREKeenan Private HospitalUrine WBC0-2 #/HPF AbnormalNONE [facility] HospitalEosinophils # (Auto)0.2 10 3/uL0.0-0.7FSalem Regional Medical CenterImmature Granulocyte # (Auto)0.06 10 3/uLHigh0.00-0.03[facility] HospitalPlatelet mean volume Auto (Bld) [Entitic vol]Ordered By: Chris Dickerson on 32-19-4261Wwndjcpj mean volume (Bld) [Entitic vol]8.7 fLLow9.5-13.5FSalem Regional Medical CenterPlatelets Auto (Bld) [#/Vol]Ordered By: Chris Dickerson on 66-66-0445Qqagzmoua (Bld) [#/Vol] 185 10 3/bY799-154VrkwemyteKeenan Private HospitalRBC Auto (Bld) [#/Vol]Ordered By: Chris Dickerson on 59-38-9373QHI (Bld) [#/Vol]4.20 10 6/uL4.20-5.40[facility] Centererum or plasma albumin/globulin mass ratioOrdered By: Chris Dickerson on 79-88-4891Ggjfcao/Globulin [Mass ratio]0.9 {ratio}[facility] Centererum or plasma anion gap determinationOrdered By: Chris Dickerson on 88-98-2225Wxpfd gap [Moles/Vol]12.1 mmol/LFSalem Regional Medical CenterUrine Cultureon 58-16-3847Tyjosmyj identified Cx Nom (U)50,000 colonies/ml mixed bacterial skin contaminants 2 Days PERFORMED BY: [place] [address] PATHOLOGIST RETAIL ASSISTANT DAMIÁN DOSHI M.D.NormalCleveland Clinic Martin South Hospital Physician GroupComment on above: Performed By: #### CUU #### [place] [address] USARECURRENT VAGINITIS (HTRX)on 93-10-3798AHNDYCCAW VAGINAE0 NOMS HealthcareATOPOBIUM VAGINAENot detectedNOMS HealthcareBVAB 2,3 (BACTERIAL VAGINOSIS ASSOCIATED BACTERIA 2, 3); MOBILUNCUS POS7NAPE HealthcareBVAB 2,3 (BACTERIAL VAGINOSIS ASSOCIATED BACTERIA 2, 3); MOBILUNCUS SPPNot detectedNOMS HealthcareCANDIDA ALBICANS, PARAPSILOSIS, RNDGQNEUCY3WFDJ HealthcareCANDIDA ALBICANS, PARAPSILOSIS, TROPICALISNot detectedNOMS HealthcareCANDIDA GLABRATA0 N[facility]S HealthcareCANDIDA GLABRATANot detectedNOMS HealthcareCANDIDA UFHSAY3WAXP HealthcareCANDIDA KRUSEINot detectedNOMS HealthcareCHLAMYDIA NSXMHOHZOEV3VYJG HealthcareCHLAMYDIA TRACHOMATISNot detectedNOMS HealthcareGARDNERELLA VAGINALIS0 [facility]S HealthcareGARDNERELLA VAGINALISNot detectedNOMS HealthcareMEGASPHAERA (TYPES 1, 2)0NOMS HealthcareMEGASPHAERA (TYPES 1, 2)Not detectedNOMS Healthcare MYCOPLASMA GZNJMXPXZY4QURB HealthcareMYCOPLASMA GENITALIUMNot detectedNOMS HealthcareNEISSERIA IFJZDBUMMEU7XDAE HealthcareNEISSERIA GONORRHOEAENot detected NOMS HealthcareTRICHOMONAS AFMEXHBUS4NBQC HealthcareTRICHOMONAS VAGINALISNot detectedNOMS HealthcareNOMS HealthcareALL THYROID STIM HORMONEon 54-60-2171HOC Qn1.702 m[IU]/LNOMS HealthcareCLINISYNCNOMS HealthcareAlpha-fetoprotein (AFP) measurement (kxlqaida-lx-ijzgjj)Ordered By: Les Martinez on 45-60-0113LLT [MoM] 0.87.[facility] HospitalAssess gestational ageOrdered By: Les Martinez on 98-56-1626Cpsrizyybsy age18.0 weeks.[facility] Estimation of maternal age-specific risk of Down syndrome birthOrdered By: Les Martinez on 50-82-2147Yqr [Time]30.1 yr.[facility] HospitalInsulin dependent diabetes mellitus detectionOrdered By: Les Martinez on 11-20-2024 Insulin dependent diabetes mellitus QlNo.[facility] Interpretation of serum or plasma second trimester quad maternal screen (narrative reOrdered By: Les Martinez on 74-86-1475Jamivr trimester quad maternal screen Gonzales [Interp]Comment.[facility] HospitalComment on above: Interpretation: Screen NegativeThis result [...] and older.Second trimester quad maternal screen Gonzales [Interp]Negative.[facility] HospitalLaboratory - Chemistry and Chemistry - challengeOrdered By: Les Martinez on 75-73-7305LHJ Qn1.702 m[IU]/L 0.358-3.740[facility] HospitalNo Panel InformationOrdered By: Les Martinez on [id number] Triple Screen CommentComment.[facility] HospitalComment on above:Gisel Gandhi, Ph.D., DABCCDirectorReferences: Available Upon Request.Multiples Of Median Cutoffs For AFP ElevationsSingleton 2.5 Black 2.8IDD 2.0 Twins 4.5 Abbreviation DefinitionsIDD - Insulin Dep DiabetesOSBR - Open Spina Bifida RiskFor further inquiries contact [employer] at [phone].This test was developed and its performance characteristicsdetermined by [employer]. It has not been cleared or approvedby the Food and Drug Administration.Performed at: [facility] [id number] [place], [place] [id number] Director: Lorena Ellis [facility], Phone: [phone] Fetoprotein Results ReceivedReport.Keenan Private HospitalGestational Age Calculation MethodUltrasound.[facility]enan Private HospitalComment on above:18.0 on 11/20/2024Recalculations are not recommended when gestational datingby LMP and ultrasound are within 10 days. Maternal Quad Test [id number].[facility] HospitalMaternal RaceOther .[facility] HospitalMultiple PregnancyNo.[facility] Medical Centererum or plasma lhjrp-6-kmuvdrhlzvm measurement (mass/volume) Ordered By: Les Martinez on 49-76-9811PFI [Mass/Vol]27.6 ng/mL.[facility]an Private HospitalUrinalysis macro (dipstick) panel (U)on 46-78-4825Hjgjqbcgk, UA NegativeNegative - 4(70) +++ mg/dLNOMS HealthcareBlood, UANegativeNegative - 50 Yehuda/mcLNOMS HealthcareClarity, UAClearNOMS HealthcareColor, UAYellowNOMS HealthcareGlucose, UANegativeNegative - 2000(110) ++++ mg/dLNOMS Healthcare Interpretation and review of laboratory resultsAbnormalNONV HealthcareKetones, UANegativeNegative - 160(16) ++++ mg/dLNortheast Regional Medical CenterLeukocytes, UA2+Negative - 500+++ Kourtney/mcLNOEllis Fischel Cancer CenterNitrite, UANegativeNegative - PositiveNONV HealthcarepH, UA85 - 9NONV HealthcareProtein, UANegativeNegative - 2000(20) ++++ mg/dLNortheast Regional Medical CenterSpec Grav, UA1.011 - 1.03NOEllis Fischel Cancer CenterUrobilinogen, UA1.0 0.2 - 12 mg/dLAtrium Health Pineville Rehabilitation HospitalLaboratory - Chemistry and Chemistry - challengeOrdered By: Chris Dickerson on 35-80-3597Sswmdmagl Ql (U)Negative NEGATIVEKeenan Private HospitalGlucose (U) [Mass/Vol]NegativeNEGATIVE [facility] HospitalKetones Ql (U)NegativeNEGSt. Francis HospitalpH (U)7.5 [pH]5.0-9.0[facility] Specific gravity (U) [Rel density]1.0101.005-1.025Keenan Private HospitalUrobilinogen Qn (U)1.0 {Fabián'U}/dL0.2-1.0[facility] HospitalLaboratory - Specimen informationOrdered By: Chris Dickerson on 11-17-2024 Appearance (U)CLEARCLEARFSalem Regional Medical CenterColor (U)LT. YELLOW YELLOWKeenan Private HospitalLaboratory - UrinalysisOrdered By: Chris Dickerson on 01-48-1024Umeyhjubu esterase Test strip Ql (U)NegativeNEGATIVE [facility] HospitalMucus Ql (Urine sed)NONE SEENNONE [facility] HospitalNitrite Ql (U)NegativeNEGSt. Francis HospitalProtein Ql (U)NegativeNEG/TRACEKeenan Private HospitalNo Panel InformationOrdered By: Chris Dickerson on 78-71-4519Qgsww BacteriaTRACE #/HPF AbnormalNONE [facility] HospitalUrine Culture ReflexedNO [facility] HospitalUrine Occult BloodNegativeNEGSt. Francis HospitalUrine Other CastsNONE SEEN #/LPFNONE SEENRandolph Healthelands Regional Medical CenterUrine Other CrystalsNone Seen #/HPFNone [facility] HospitalUrine RBCNONE SEEN #/HPF0-2FSalem Regional Medical CenterUrine Squamous Epithelial CellsRARE #/LPFNONE/RAREKeenan Private HospitalUrine WBCNONE SEEN #/HPFNONE [facility] Ultrasound - Officeon 93-55-0703Lelrrpmfe Study observation (narrative)ProMedicWinona Community Memorial Hospital SystemUrinalysis macro (dipstick) panel (U)on 08-33-2542Chkqonqnk, UA NegativeNegative - 4(70) +++ mg/dLNOMS HealthcareBlood, [...] HealthcareAppearance of UrineOrdered By: Kassidy Arriaza on 34-53-0302Jmyhvxulks (U)ClearNormalClearKeenan Private HospitalComment on above:Order Comment: Name Collection Type:: Clean- Voided MidstreamPerformed By: #### UA, CUU #### [place] [address] USABilirubin Test strip Ql (U)Ordered By: Kassidy Arriaza on 13-02-0239Irxacewiv Ql (U)NegativeNegWhite Hospital Chlamydia/GC Amplificationon 29-34-9373Nmbshdjiy Trachomotis, NAANegativeNormal NegativeThe [facility] Physician GroupComment on above:Order Comment: SOURCE OF SPECIMEN: GenitalPerformed By: #### GCCHLAMAMP #### [facility] , #### CUGEN #### [place] [address] USANeisseria Gonorrhoeae, NAANegativeNormalNegativeThe [facility] Valdese Physician GroupComment on above:Order Comment: SOURCE OF SPECIMEN: GenitalResult Comment: Performed at: = - [facility] [id number] Product Safety Specialist: Dagmar Love MD, Phone: [phone] PERFORMED BY: [place] [address] PATHOLOGIST RETAIL ASSISTANT DAMIÁN DOSHI M.D.Performed By: #### GCCHLAMAMP #### [facility] , #### CUGEN #### [place] [address] USAColor of Urine by AutoOrdered By: Kassidy Arriaza on 69-36-9749Jzbit (U)ColorlessNormalYFort Hamilton HospitalComment on above:Order Comment: Name Collection Type:: Clean-Voided MidstreamPerformed By: #### UA, CUU #### [place] [address] USAGenital Cultureon 73-28-7726Wnylkmy CultureGenital Results Light Normal Urogenital Damián 2 Days No More GC Specimen not tested for Neisseria gonorrheae PERFORMED BY: [place] [address] PATHOLOGIST RETAIL ASSISTANT DAMIÁN DOSHI M.D.NormalThe [facility] Valdes[facility] Physician GroupComment on above: Performed By: #### GCCHLAMAMP #### [facility] , #### CUGEN #### [place] [address] USAGenital specimen bacteria identification by aerobic cultureOrdered By: Kassidy Arriaza on 99-43-0533Ljsylxrd identified Aer cx Nom (Genital specimen)Keenan Private HospitalGlucose [Mass/volume] in Urine by Test stripOrdered By: Kassidy Arriaza on 99-39-3502Gmulvad Test strip (U) [Mass/Vol]Normal mg/dLNormTrinity Health System East CampusHemoglobin Test strip Ql (U)Ordered By: Kassidy Arriaza on 35-36-0451Fvzfzxwvxr Ql (U)Negative [facility] CenterKetones [Presence] in Urine by Test stripOrdered By: Kassidy Arriaza on 47-85-1353Sshmqlc Ql (U)TraceNormalBerger HospitalComment on above:Order Comment: Name Collection Type:: Clean-Voided MidstreamPerformed By: #### UA, CUU #### [facility] [address] [place] [address] USALaboratory - Microbiology and Antimicrobial susceptibility Ordered By: Kassidy Arriaza on 10-18-2024. trachomatis DNA AC+probe Ql (Unsp spec)NegativeNegWhite HospitalN. gonorrhoeae DNA AC+probe Ql (Unsp spec)NegativeNegWhite HospitalComment on above:Performed at: = - [facility] [id number] Director: Dagmar Love MD, Phone: [phone] esterase [Presence] in Urine by Test stripOrdered By: Kassidy Arriaza on 10-18-2024 Leukocyte esterase Test strip Ql (U)NegativeNormalFirelands Regional Medical CenterComment on above:Order Comment: Name Collection Type:: Clean- Voided MidstreamPerformed By: #### UA, CUU #### [facility] [address] [place] [address] USANitrite Test strip Ql (U)Ordered By: Kassidy Arriaza on 83-30-3600Jhffyvl Ql (U)NegativeNegWhite HospitalProtein Test strip (U) [Mass/Vol]Ordered By: Kassidy Arriaza on 07-97-2639Vcalsri (U) [Mass/Vol]NegativeNegGreen Cross Hospitalpecific gravity Test strip (U) [Rel density]Ordered By: Kassidy Arriaza on 44-35-5837Pzyzjanu gravity (U) [Rel density]1.0071.001-1.030Keenan Private HospitalUS OB <= 14 weeks fetuson 61-40-6242QA OB <= 14 weeks [facility] [place] [address] [place], [place] [address] Ultrasound Report Signed Patient: Jaz Sanders MR#: [id number] : 1995 Acct:[id number] Age/Sex: 29 / F ADM Date: 10/18/24 Loc: ER Room: Type: [facility] ER Attending Dr: Ordering Provider: [...] Jr., DRenaeORenae 10/18/2024 2:21 PM Dictation Location: [place] [address] Tech: Natalie Haji Transcribed By: MAITE 10/18/24 1421 Dictated By: Sravan Dickinson Jr, DO 10/18/24 1419 Signed By: 10/18/24 1421NoFirstHealth Moore Regional [facility] Richmond Physician GroupUnlisted Lab Teston 10-18-2024 ProMDeer River Health Care Center SystemUrinalysison 74-57-8322Evwdxgeoo,UrineNegativeNormal NegativeThe [facility]e Physician GroupComment on above:Order Comment: Name Collection Type:: Clean-Voided MidstreamPerformed By: #### UA, CUU #### [place] [id number] USAGlucose Ql (U)NormalNormalNormBartow Regional Medical Center Physician GroupComment on above:Order Comment: Name Collection Type:: Clean-Voided MidstreamPerformed By: #### UA, CUU #### [place] [address] USANitrite,UrineNegativeNormalNegativeCleveland Clinic Martin South Hospital Physician GroupComment on above:Order Comment: Name Collection Type:: Clean-Voided MidstreamPerformed By: #### UA, CUU #### [place] [address] USAOccult Blood,UrineNegativeNormalNegativeThe [facility] Physician GroupComment on above:Order Comment: Name Collection Type:: Clean- Voided MidstreamResult Comment: PERFORMED BY: [place] [address] PATHOLOGIST RETAIL ASSISTANT DAMIÁN DOSHI M.D.Performed By: #### UA, CUU #### [place] [address] USAProtein,UrineNegativeNormalNegativeCleveland Clinic Martin South Hospital Physician GroupComment on above:Order Comment: Name Collection Type:: Clean-Voided MidstreamPerformed By: #### UA, CUU #### [place] [address] USASpecificy Sterling,Urine1.104Sqilzk5.001-1.030[facility] Physician GroupComment on above:Order Comment: Name Collection Type:: Clean- Voided MidstreamPerformed By: #### UA, CUU #### [place] [address] USAUrobilinogen,UrineNormalNormalNormalThe [facility] Physician GroupComment on above:Order Comment: Name Collection Type:: Clean- Voided MidstreamPerformed By: #### UA, CUU #### [place] [address] USAUrine Cultureon 12-43-1797Tduilqce identified Cx Nom (U) <9,000 colonies/ml mixed bacterial skin contaminants 2 Days PERFORMED BY: [place] [address] PATHOLOGIST RETAIL ASSISTANT DAMIÁN DOSHI M.D.NormalCleveland Clinic Martin South Hospital Physician GroupComment on above: Performed By: #### CAESAR, CUU #### [facility] [address] [place] [address] USAUrine cultureOrdered By: Kassidy Arriaza on 10-18-2024 Bacteria identified Cx Nom (U)2 DaysKeenan Private Hospital Urobilinogen Test strip (U) [Mass/Vol]Ordered By: Kassidy Arriaza on 10-18-2024 Urobilinogen (U) [Mass/Vol]Normal mg/dLNormalKeenan Private HospitalpH of Urine by Test stripOrdered By: Kassidy Arriaza on 84-64-3706mN (U)7.0 [pH] Normal5.0-9.0Keenan Private HospitalComment on above:Order Comment: Name Collection Type:: Clean-Voided MidstreamPerformed By: #### CAESAR, CUU #### [facility] [address] [place] [address] USAUnlisted Lab Teston 72-36-0469RmmSmgqxw Health SystemBOX TESTon 20-89-7080KJD TEST SENT OUTUNITYNONV OnrlagyvliUNW4GKDDUGECV Healthcare YAZ91-04-24UJDM HealthcareUNITY BOX CLINISYINTERMOUNTAIN HEALTHCARE HealthcareCoding Summaryon 65-02-2831Pnllrd SummaryHTMLBase 64 OclwapyaHEc0qJj+PGhlYWQ+JN4WYFZsV40juCIdrV2qB4AFGZxTEavsYUSMPNoKTxHoenLgPZ0ynXFm ZXJu [file] b2x (more content not included)...[facility] Medical CenterCompliance Drug Analysis, [facility] 75-31-4531Swnojrt LCFINALInvalid Interpretation [facility] Medical CenterComment on above:Result Comment: TOXASSURE COMP [...] test is not intended to distinguish between dfhgd-9-brkvxveotnotgexwbahu, the predominant form of THC in most herbal or marijuana-based products, and ghvpy-4-whznimwqgyusuwjnvvvo. Lamotrigine PRESENT Acetaminophen PRESENT Test Result Flag Units Ref Range Creatinine 45 mg/dL >=20 Declared Medications: Medication list was not provided. For clinical consultation, please call . ToxAssure, ToxAssure FLEX or MAT drug testin -Technical component - Data analysis performed at [facility], [address] [place] [address]. [phone]. Product Safety Specialist César Bains MD. ToxAssure, ToxAssure FLEX or MAT drug testing: -Technical component - Result certification performed at [facility], [address] [place] [address]. [phone] Product Safety Specialist César Bains MD. Performed At: [facility] [address] [id number] Brendon Galan [facility] Ph:[phone] By: #### [id number] ####[facility] (DEFAULT)[address] [place] [address] 26814S Urineon 09-28-2024 UrineMixed skin, or urogenital damián. Clinically insignificantNormalOhiohealth Nelsonville Health CenterComment on above:Performed By: #### [id number] ####[facility] (DEFAULT)[address] [place] [address] 98348ARfMe Screen LCon 09-27-2024 HBsAg Screen LCNegativeInvalid Interpretation CodeNegativeOhiohealth Nelsonville Health Center Comment on above:Result Comment: Performed At: [place] [id number] [place], [place] [id number] J Luis Gray PhD Ph:[phone] By: #### [id number], 1907553, 2784683, 49736245, 8737833328, 69983099, 8362157417, 07230695####[facility] (DEFAULT)[address] [place] [address] 02448KRP 4th Gen Screen w Reflex LCon 48-53-0943WDN Scr 4th Gen LCNon-ReactiveInvalid Interpretation Code Non ReactiveOhiohealth Nelsonville Health CenterComment on above:Result Comment: HIV-1/HIV-2 antibodies and HIV-1 p24 antigen were NOT detected. There is no laboratory evidence of HIV infection. HIV Negative Performed At: [facility] [address] [place], [place] [id number] J Luis Gray PhD Ph:[phone] By: #### [id number] #### [facility] (DEFAULT) [address] [place] [address]SZP, Rfx Qn RPR/Confirm TP LCon 87-64-7623SEC LC Non-ReactiveInvalid Interpretation CodeNon ReactiveMercy Health St. [facility] Hospital HospitalComment on above:Performed By: #### [id number], 3063469, 5050072, 73749155, 2247221820, 70001309, 0373121069, [id number]####[facility] ([facility] [place] [address] 99745Qfxijpf Antibodies, IgG LCon 44-12-7577Ahqdtkt Antibodies, IgG LC2.78 indexInvalid Interpretation CodeImmune >0.99Mpremier health miami [facility] south HospitalComment on above:Result Comment: Non-immune <0.90 Equivocal 0.90 - 0.99 Immune >0.99 Performed At: [facility] [address] [place], [place] [id number] J Luis Gray PhD Ph:[phone] By: #### 62740648, 0863669, 1586432, 74039205, 2238285172, 96813477, 2847819964, [id number]####[facility] (DEFAULT)[address] [place] [address]129.Auto Diff 1on 31-85-5134Ujuo [place] %6 %Normal1-12[facility] HospitalComment on above:Performed By: #### 39371775, 3174189, 7525554, 86235535, 2025778939, 24285697, 1237141140, 45342026####[facility] (DEFAULT)[address] [place] [address] Baso Abs#0.0 r67Dxwvlo4.0-0.2Mpremier health miami valley hospital south HospitalComment on above:Performed By: #### 41619807, 2822552, 6267370, 28782208, 1291379479, 44446503, 4180223898, 81597327####[facility] (DEFAULT)[address] [place] [address] 20698 Basophils/100 WBC (Bld)0.1 %Low0.2-2.0Macleveland clinic foundation HospitalComment on above: Performed By: #### 62657531, 4699108, 2866951, 10102179, 5758959417, 64410248, 5104071916, 45933176####[facility] (DEFAULT)[address] [place] [address] 08795Naz Abs#0.2 g14Qrwdcv8.0-0.4Macleveland clinic foundation HospitalComment on above: Performed By: #### 76864339, 7039430, 6177973, 06640048, 1928009918, 24248688, 7394759597, 19731945####[facility] (DEFAULT)[address] [place] [address] 49044Eujhxbfqyyl/100 WBC (Bld)2.0 %Normal0.9-4.0[facility] Hospital Comment on above:Performed By: #### 76628333, 4773717, 0660674, 58804138, 7801896627, 08057394, 7219016451, 49055840####[facility] (DEFAULT)[address] [place] [address] 69118Xbhbv Abs#2.0 s05Kanmzk0.3-2.9Mac[facility] clinic foundation HospitalComment on above:Performed By: #### 99122661, 2083147, 2125935, 80316551, 1873833320, 73085760, 9328547907, 90045539####[facility] (DEFAULT)[address] [place] [address] 13623Qvvpkrxfbbm/100 WBC (Bld)26 % Njvilm70-63Kooutkym HospitalComment on above:Performed By: #### 80471316, 3552691, 6164274, 24938522, 6215229579, 89917068, 3980008011, 52336833 ####[facility] (DEFAULT)[address] [place] [address] 94911Njmu Abs# 0.5 m12Ujaxyp8.0-0.8Ohio[facility] Nelsonville Health CenterComment on above:Performed By: #### 53749994, 8903720, 0182680, 30298158, 3006456467, 55763834, 9739913105, 13676994 ####[facility] (DEFAULT)[address] [place] [address] 11975Drfc Abs# 5.1 i56Djasfx3.5-9.2Mpremier health miami [facility] hospital south HospitalComment on above:Performed By: #### 11800461, 0815329, 0034657, 77623581, 1416128805, 71437217, 8274526634, 12428707 ####[facility] (DEFAULT)[address] [place] [address] 97766 Neutrophils/100 WBC (Bld)66 %Neyesw04-19Ycbskezf HospitalComment on above: Performed By: #### 35676251, 1702457, 5341285, 09400585, 6804160709, 58865371, 8697875958, 90882564####[facility] (DEFAULT)[address] [place] [address] 76663QYKJmkl 06-19-7793IPW and Rh group Nom (Bld)Hx Check: Not Found Anti-A: 4+ Anti-B: 0 Anti-D: 2+ DCon: NT A1: 0 B: 2+ ABORh Interp: A POSInvalid Interpretation [facility] Medical CenterComment on above: Performed By: #### 56821590, 2746291, 7498739, 95378784, 5736754128, 56728314, 8228228045, 14775805####[facility] (DEFAULT)[address] [place] [address] 61656EUNY Gelon 18-37-5269CJBB GelNegativeChillicothe VA Medical Center Comment on above:Performed By: #### 91878532, 6667195, 0308352, 64841493, 2459702421, 21277642, 2096594911, 85641554####[facility] (DEFAULT)[address] [place] [address] 31277QAT w/ Auto Diffon 78-98-0169Seinamjiqum distribution width (RBC) [Ratio]13.2 %Dqrvvu89.5-15.0Ohio[facility]ville Health CenterComment on above:Performed By: #### 56704641, 0675493, 8605397, 44141959, 1408295968, 15562071, 3636777697, 10799410#### [facility] (DEFAULT) [address] [place] [address] 30738Glzespkaoi (Bld) [Volume fraction]39.9 %Mdmxjk16.7-40.4 [facility] Health CenterComment on above:Performed By: #### 18198304, 6383219, 7034255, 36633717, 4575958154, 37199876, 2716628904, 39720345#### [facility] (DEFAULT) [address] [place] [address] 50616Fpqoesging (Bld) [Mass/Vol]13.9 g/oVZsdcpk97.3-15.9 [facility] Health CenterComment on above:Performed By: #### 18414123, 8486144, 7700404, 15787108, 5094443991, 02097250, 1042474175, 43455168#### [facility] (DEFAULT) [address] [place] [address] 38141Eye Diff?AutoInvalid Interpretation [facility] Comment on above:Performed By: #### 61689655, 7383372, 1874960, 78713322, 9455922727, 57844777, 5673809309, 32425814#### [facility] (DEFAULT) [address] [place] [address] 89099XWV (RBC) [Entitic mass]29 ivYsxzof06-27Kvkkhuvq Hospital Comment on above:Performed By: #### 44784951, 3036805, 1843400, 28036473, 5366262305, 92767410, 6415467273, 72815333#### [facility] (DEFAULT) [address] [place] [address] 70311PFQC (RBC) [Mass/Vol]35 g/dXWxdepd36-91Nmwgycpk Hospital Comment on above:Performed By: #### 44227511, 0509335, 1179459, 61163617, 0115515108, 59879415, 6081656251, 19155381#### [facility] (DEFAULT) [address] [place] [address] 69972IHM (RBC) [Entitic vol]84 hCXilqht85-199Iqcricyv Hospital Comment on above:Performed By: #### 25238843, 8670937, 2627070, 12015175, 4866904442, 19832984, 0284470339, 75114092#### [facility] (DEFAULT) [address] [place] [address] 05942Pqangego067 j36Iarqcg184-847Uamodyzz HospitalComment on above:Performed By: #### 00207659, 5654245, 7361925, 76732621, 3633901636, 34431765, 7995702860, 63783008#### [facility] (DEFAULT) [address] [place] [address] 27090Zjmteurg mean volume (Bld) [Entitic vol]6.3 fLNormal 6.3-10.2MMadison HealthComment on above:Performed By: #### 66540271, 6894465, 7347003, 83921073, 1107260479, 87671987, 4699595612, 43245092#### [facility] (DEFAULT) [address] [place] [address] 74445BAR2.76 n89Naaigv9.70-5.30[facility] HospitalComment on above:Performed By: #### 77938925, 8994775, 7285543, 14585257, 5890245000, 48909506, 0139929252, 29889222#### [facility] (DEFAULT) [address] [place] [address] 39746MUJ1.8 w54Vtglxh1.5-10.5Ohio[facility] Health CenterComment on above: Performed By: #### 69674913, 7092889, 9886889, 38255951, 0813963354, 55033501, 8511416463, 77901423#### [facility] (DEFAULT) [address] [place] [address] 92457GJH surface Ag IA on 88-31-0771Bkveitkuy B Surface AntigenNegativeFulton County Health CenterHIV 1+2 Ab+HIV1 p24 Ag IA Qlon 09-26-2024 HIV 1&2 AB/AGNon-ReactiveFulton County Health CenterHgbA1c Standardon 09-26-2024.Hb 13.1Invalid Interpretation [facility] Medical CenterComment on above:Performed By: #### 83285347, 2641713, 3821976, 70949449, 8088525755, 73882436, 0133560486, 41428123####[facility] (DEFAULT)[address] [place] [address]005 .Hgb A1c0.38 g/dLInvalid Interpretation [facility] Medical CenterComment on above: Performed By: #### 28656899, 0955741, 1592287, 31535512, 4347348083, 05735212, 0194373660, 99305816####[facility] (DEFAULT)[address] [place] [address] 65296Glrnfbp [Mass/Vol]91 mg/dLInvalid Interpretation [facility] Medical CenterComment on above:Performed By: #### 51914245, 4680180, 6001080, 16715250, 8491628044, 94895336, 5857997975, 26729482####[facility] (DEFAULT)[address] [place] [address] 15811JuU3u (Bld) [Mass fraction]4.8 % 4.0 - 6.0 %[facility] Health CenterComment on above:Performed By: #### 71650254, 8625676, 0549017, 32280457, 6230965686, 35867143, 5140771352, 14698290 ####[facility] (DEFAULT)[address] [place], [place] [address]Zw Panel Informationon 70-28-1460YduYltdfa HStreaming SystemProvider Orderson 09-26-2024 Provider [id number]#1.00OTGTIFFChillicothe VA Medical CenterRubella IGG immune statuson 96-67-7450Ldzbxde immune IgG2.78ProUniversity Hospitals Conne[facility] Center SystemT. pallidum IgG+IgM IA Ql (S)on 62-83-5893XtugnbsuXlo-Reactive ProMDeer River Health Care Center SystemType and screenon 42-13-2326Luj/Rh(D)PositiveProDekalb Regional Medical Center SavorUltrasound - Officeon 08-31-9829EfiMwxbns Health SystemHCG ( test) Ql (U)on 16-77-7843Sfuqtkvxhpduzu and review of laboratory resultsAbnormalNOMS HealthcarePreg Test, UrPositiveNegativeNOMS HealthcareNOMS HealthcareUS OB TRANSVAGINALon 68-57-8383HI OB TRANSVAGINALEXAM: US OB TRANSVAGINAL HISTORY: Dating, [...] II, MD, PHD at 21-Sep-2024 08:26:46 AM [facility] TeleradiologyNormalNot AvailableComment on above:Order Comment: US OB TRANSVAGINAL No LMP recorded.Urinalysis macro (dipstick) panel (U)on 25-64-4334Okfyukfit, UA NegativeNegative - 4(70) +++ mg/dLNOMS HealthcareBlood, [...] HealthcareUrobilinogen, UA0.20.2 - 12 mg/dLNOMS HealthcareNOMS HealthcareCNNURSEon 02-41-3967UAYECYT Nurse Visit (SHERLEYIAV) JAZ SANDERS ([id number]) 1995 F Date Time Provider Department 09/03/24 10:[address] REJ TORREYV During your visit today, we recorded the following information about you: Manisha Weaver APRN.STORE MERCHANDISER 09/03/2024 5:42 PM Signed Jaz Sanders here [...] 2024 5:39 PM Referring Provider: MELODIE HERNANDEZ [[id number]] Allergies As of Date: 09/03/2024 (Not on File) Date Reviewed: 08/20/2024 Reviewed by: Melodie Hernandez APRN.CNP - Fully Assessed Visit Diagnosis:Early stage of (HCC) [Z34.90] Order(s):OBSTETRIC ULTRASOUND [facility] [[id number]] Order #: [id number]. #:[id number]: [id number] Prescriptions as of 09/03/2024 - buPROPion [...] (None) Encounter Status:Closed by BRADFORD DOSS on 09/03/24NoBlanchard Valley Health System Bluffton Hospitalamination level ultrasoundon 09-03-2024 Indication Viability, Repeat Impression - Single, live, intrauterine . - An intrauterine gestational sac with a yolk sac and pole is present. - [place] rump length measurement is consistent with the [...] Lt ovary: Visualized Performed By: Nina Farnsworth; [facility] Read By: Bradford Doss M.D.MATERNAL MEDICINEEast Ohio Regional HospitalRadiology Study observation (narrative)[facility] HospitalCNNURSEon 69-83-5596VUKZQXEGmepg Visit (REIBD) JAZ SANDERS ([id number]) 1995 F Date Time Provider Department 08/28/24 11:10 AM US TECH 2 [facility] BEAC REIBD During your visit today, we recorded the following information about you: Melodie Hernandez, DRY CANS OPERATOR.STORE MERCHANDISER 08/30/2024 4:36 PM Signed Jaz Sanders is [...] scan next week as scheduled Melodie Hernandez APRN.STORE MERCHANDISER Mikey Torres MD 08/30/2024 4:36 PM Signed Viable ratliff IUP Size equal Date. Plan: patient to follow up with her ob for care. Stacy Banuelos MD Referring Provider: MELODIE HERNANDEZ [[id number]] Allergies As of Date: 08/28/2024 (Not on File) Date Reviewed: 08/20/2024 Reviewed by: Melodie Hernandez APRN.STORE MERCHANDISER - Fully Assessed Visit Diagnosis: resulting from assisted reproductive technology in first trimester ([facility]) [O09.811] Order(s):OBSTETRIC ULTRASOUND [facility] [[id number]] Order #: [id number]. #:[id number]: 1 Prescriptions as of 08/30/2024 - buPROPion [...] (None) Encounter Status:Closed by MIKEY HENLEY on 08/30/24[facility] Centeramination [facility] ultrasoundon 08-28-2024 Indication Viability Impression - Single, live, intrauterine . - An intrauterine gestational sac with a yolk sac and embryo is present. - [place] rump length measurement is consistent with the [...] Chavez RDMS Read By: Mikey Torres M.D.MATERNAL MEDICINEEast [facility] Radiology Study observation (narrative)[facility] HospitalCNPNon 04-86-5079SZTJ Telephone (REIBD) JAZ SANDERS ([id number]) 1995 F Date Time Provider Department 08/24/24 [...] Date Reviewed: 08/20/2024 Reviewed by: Melodie Hernandez, MELY.STORE MERCHANDISER - Fully Assessed Reason for Visit: Patient [...] (None) Encounter Status:Closed by ARMINDA WARD on 08/24/24[facility] Centermanisha 08-56-6568JAEHIonjnbjvs (REIBD) JAZ SANDERS ([id number]) 1995 F Date Time Provider Department 08/23/24 MELODIE HERNANDEZ During your visit today, we recorded the following information about you: Angella Mccarthy 08/23/2024 10:39 AM Signed Name: Jaz Sanders called today. : 1995 (home) [phone] (cell) Reason for call: pt called today informing the nurse she has been experiencing pain of level 4 from 1-10. Pt has been experiencing pain for 2 day. 5 weeks today. The patients preferred pharmacy has been captured for this encounter? Angella Morillo Air Conditioning Service Technician David, Melodie Keene APRN.CNP 08/24/2024 5:58 PM [...] slot. Call to patient needed: no Morillo Air Conditioning Service Technician, Lana 08/25/2024 8:37 AM Signed Pt is scheduled on 09/03/2024. Melodie Hernandez APRN.CNP 08/27/2024 11:51 AM Signed Addended by: MELODIE HERNANDEZ on: 08/27/2024 11:51 AM Modules accepted: Orders Allergies As of Date: 08/23/2024 (Not on File) Date Reviewed: 08/20/2024 Reviewed by: Melodie Hernandez APRN.CNP - Fully Assessed Reason for Visit: Pain [78] Primary Visit Diagnosis:Early stage of (HCC) [Z34.90] Order(s):OBSTETRIC ULTRASOUND [facility] [[id number]] Order #: [id number]: 1 FUTURE Prescriptions as of 08/27/2024 - [...] (None) Encounter Status:Closed by MELODIE HERNANDEZ on 08/24/24[facility] Summaryon 95-75-3535Bsrthv SummaryMLBase 64 EokcenllRYk1yNp+PGhlYWQ+TV1YTKKjD74jiIMxlE4tZ5QZUDpDJavyWJJXYGwFTdEyrvNjGW3lkDKf ZXJu [file] b2x (more content not included)...[facility] HospitalCoding Summaryon 59-74-4055Rpjdge SummaryHTMLBase 64 UfmylwqwRTp9bYp+PGhlYWQ+FP0EBGDbM00nnUHtlV3iR3SKJTeYMwluARFTIHlBTjBgdnVwOA1nsFFx ZXJu [file] b2x (more content not included)...[facility]Mer[facility] HospitalCoding SummaryMLBase 64 DthcpfjnJKi2yPe+PGhlYWQ+UZ6SQIGpL85xyDWlqU9eT4FKRXxWVpvyMXFYAEqYHhCbkhXyRO0axNKa ZXJu [file] b2x (more content not included)...[facility] HospitalProvider Orderson 09-92-7194Drhlwaai [id number]#1.00OTGTIFF [facility] CenterhCG Quantitativeon 94-86-5525qRX Kzrqzisgbbgt110.7 mIU/mL High0.0-0.6MMadison HealthComment on above:Result Comment: Post-Menopausal Reference Range is: 0.1-11.6 mIU/mLPerformed By: #### [id number] #### [facility] (DEFAULT) [address] [place] [address] [id number] 39-03-4707BIACQrytqfmtj (REIBD) JAZ SANDERS ([id number]) 1995 F Date Time Provider Department 08/16/24 MELODIE HERNANDEZ During your visit today, we recorded the following information about you: Angella Mccarthy 08/16/2024 12:31 PM Signed Name: Jaz Lynda called today. : 1995 (home) [phone] (cell) Reason for call: pt called that she got positive test, she has been having having cramping since last night , it happens every hours for couple minutes. The patients preferred pharmacy has been captured for this encounter? yes Angella Morillo Air Conditioning Service Technician Daniel Hanna APRN.CNP 08/16/2024 5:28 PM Signed Called patient back to phone number listed in [facility]-no answer. Lm for patient to look out for [employer] message. Daniel Hanna APRN.JARROD August 16, 2024 [...] Text Encounter Status:Closed by DANIEL HANNA on 08/16/24[facility] HospitalSabra 19-30-9125WBEAEkcewotfv (REIBD) JAZ SANDERS ([id number]) 1995 F Date Time Provider Department 08/15/24 [...] Date Reviewed: 05/09/2024 Reviewed by: Melodie Hernandez, DRY CANS OPERATOR.STORE MERCHANDISER - Fully Assessed Reason for Visit: Patient [...] (None) Encounter Status:Closed by MELODIE HERNANDEZ on 08/15/24[facility] HospitalProvider Orderson 91-10-8934Efyzuwof Orders [id number]#1.00OTGTTrumbull Regional Medical CenterhCG Quantitativeon 69-52-1957vSU Iqnvfjdflwod565.6 mIU/mLHigh0.0-0.6MMadison HealthComment on above:Result Comment: Post-Menopausal Reference Range is: 0.1-11.6 mIU/mLPerformed By: #### [id number] #### [facility] (DEFAULT) [address] [place] [address] [id number] 44-18-5407PHJWIircsnxyr (REIBD) JAZ SANDERS ([id number]) 1995 F Date Time Provider Department 08/13/24 MELODIE HERNANDEZ During your visit today, we recorded the following information about you: Arminda Ward RN 08/13/2024 11:19 AM Signed Letters sent. sent to patient Arminda Ward RN August 13, 2024 11:19 AM Allergies As of Date: 08/13/2024 (Not on File) Date Reviewed: 05/09/2024 Reviewed by: Melodie Hernandez, DRY CANS OPERATOR.STORE MERCHANDISER - Fully Assessed Reason for Visit: Wants hcg levels sent to [facility] / lives far away [Other] Prescriptions as [...] Text Encounter Status:Closed by ARMINDA WARD on 08/13/24[facility] HospitalProvider Orderson 24-43-0204Igvwrbyt Orders [id number]#1.00OTPremier Health Atrium Medical CenterhCG Quantitativeon 56-78-2882yFK Rvzljxbcwwxf04.6 mIU/mLMary Babb Randolph Cancer Center0.0-0.6MMadison Health Comment on above:Result Comment: Post-Menopausal Reference Range is: 0.1-11.6 mIU/mLPerformed By: #### [id number] #### [facility] (DEFAULT) [address] [place] [address] [id number] 40-99-3845HXRCDlbwud Visit (REIBD) JAZ SANDERS ([id number]) 1995 F Date Time Provider Department 07/31/24 3:00 PM MELODIE HERNANDEZ REARLET During your visit today, we recorded the following information about you: Last Period 07/19/24 Mustapha Tello MA 07/31/2024 3:12 PM Addendum Patient verified by full name and date of . Jaz Sanders is here today for an IUI. LMP: 07/19/2024 Natural cycle IUI Timed With: Ovulation Predictor Kit , Date: 07/30/2024 Clinical Data Management Director offered: Patient declines Mustapha Tello MA July 31, 2024 3:12 PM Dominguez Barry 09/05/2024 10:45 PM Signed IUI specimen released to provider Dominguez Barry July 31, 2024 3:24 PM Dominguez Barry 09/05/2024 10:45 PM Signed IUI Cryobio Donor # [id number] Pre: frozen washed specimen Post: 82 M/ml, [...] 3. Cycle Day: Last menstrual period: 07/19/2024 Ackerly Protocol: UNIVERSAL PROTOCOL / SAFETY CHECKLIST Procedure [...] (None) Encounter Status:Closed by MELODIE HERNANDEZ on 09/05/24[facility] HospitalOVOffice Visit (ANDRBE) JAZ SANDERS ([id number]) 1995 F Date Time Provider Department 07/31/24 2:30 PM ANDROLOGY BEVEL POL[facility] During your visit today, we recorded the following information about you: Dominguez Barry 07/31/2024 3:26 PM Signed Thaw for IUI. Dominguez Barry Referring Provider: SELF [[id number]] Allergies As of Date: 07/31/2024 (Not on File) Date Reviewed: 05/09/2024 Reviewed by: Melodie Hernandez, DRY CANS OPERATOR.STORE MERCHANDISER - Fully Assessed Primary Visit Diagnosis:Procreative management [...] (None) Encounter Status:Closed by DOMINGUEZ BARRY on 07/31/24[facility] HospitalCNPNon 95-35-9713QBEEGbbxfxhic (REIBD) JAZ SANDERS ([id number]) 1995 F Date Time Provider Department 07/30/24 MELODIE HERNANDEZ During your visit today, we recorded the following information about you: Sathyamanisha Manisha 07/30/2024 3:16 PM Signed N- ivf Pt has questions regarding IUI Melodie Hernandez APRN.CNP 07/30/2024 6:00 PM Signed patient's OPK today was dark but not positive Plan: test again tomorrow. 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, schedule IUI the same day Melodie Hernandez APRN.CNP July 30, 2024 6:00 PM Allergies As of Date: 07/30/2024 (Not on File) Date Reviewed: 05/09/2024 Reviewed by: Melodie Hernandez APRN.CNP - Fully Assessed Reason for Visit: Patient Question [2167] Prescriptions as of 07/30/2024 - naltrexone 50 [...] (None) Encounter Status:Closed by MELODIE HERNANDEZ on 07/30/24[facility]manisha 42-56-9697LOLAClmalv Visit (REIBD) JAZ SANDERS ([id number]) 1995 F Date Time Provider Department 07/07/24 [...] Cycle Day: 14 Last menstrual period: 06/24/2024 Ackerly Protocol: UNIVERSAL PROTOCOL / SAFETY CHECKLIST Procedure [...] Gonzalez 07/19/2024 7:50 AM Signed IUI Cryobio #[id number] Washed frozen specimen Post: 31 m/ml, 77% Insem#: 10.8 million Referring Provider: DANIEL HANNA [[id number]] Allergies As of Date: 07/07/2024 (Not on File) Date Reviewed: 05/09/2024 Reviewed by: Melodie Hernandez APRN.STORE MERCHANDISER - Fully Assessed Primary Visit Diagnosis:Encounter for [...] (None) Encounter Status:Closed by MIKEY HENLEY on 07/19/24[facility] Centerice Visit (ANDRBE) JAZ SANDERS ([id number]) 1995 F Date Time Provider Department 07/07/24 9:30 AM [facility] During your visit today, we recorded the following information about you: Nichelle Gonzalez 07/07/2024 9:41 AM Signed Thaw for IUI Nichelle Gonzalez Referring Provider: DANIEL HANNA [[id number]] Allergies As of Date: 07/07/2024 (Not on File) Date Reviewed: 05/09/2024 Reviewed by: Melodie Hernandez APRN.STORE MERCHANDISER - Fully Assessed Primary Visit Diagnosis:Procreative management [...] (None) Encounter Status:Closed by NICHELLE GONZALEZ on 07/07/24[facility] HospitalSabra 41-71-8039GIHTJuqyjsjda (REIBD) JAZ SANDERS ([id number]) 1995 F Date Time Provider Department 07/06/24 [...] Date Reviewed: 05/09/2024 Reviewed by: Melodie Hernandez APRN.STORE MERCHANDISER - Fully Assessed Reason for Visit: Patient [...] (None) Encounter Status:Closed by BECKI ISAACS on 07/06/24[facility] HospitalXavier 76-27-0739QIUIHlutelndo (REIBD) JAZ SANDERS ([id number]) 1995 F Date Time Provider Department 07/05/24 [...] Date Reviewed: 05/09/2024 Reviewed by: Melodie Hernandez APRN.STORE MERCHANDISER - Fully Assessed Reason for Visit: re [...] (None) Encounter Status:Closed by ARMINDA WARD on 07/06/24NoGal[facility] Hospital 72-40-2667VIAWUwpwekjpf (REIBD) JAZ SANDERS ([id number]) 1995 F Date Time Provider Department 07/04/24 [...] Signed Ignacio Guy MD to Jamel Skylar Barlow 07/05/24 9:05 AM Cervicalpolyp does not need to be removed. She will [facility] her [facility] IUI. Dr. [...] (None) Encounter Status:Closed by MELODIE HERNANDEZ on 07/04/24[facility]2024 Indication infertility testing Impression Normal [...] Aceves RDMS Read By: Ignacio Guy M.D.MATERNAL MEDICINEEast [facility] HospitalRadiology Study observation (narrative)[facility] HospitalCNPNon 05-47-0595RJKCVuunekluw (REIBD) JAZ SANDERS ([id number]) 1995 F Date Time Provider Department 06/29/24 [...] us before iui this weekend Melodie Hernandez APRN.STORE MERCHANDISER 07/03/2024 12:34 PM Signed unable to reach, left message to return my call Melodie Hernandez APRN.STORE MERCHANDISER July 03, 2024 12:33 PM Patricia Snow 08/13/2024 8:52 AM Signed Pos preg test Arminda Ward RN 08/13/2024 9:17 AM Signed See TE encounter dated 08/13 Arminda Ward RN August 13, 2024 9:16 AM Allergies As of Date: 06/29/2024 (Not on File) Date Reviewed: 05/09/2024 Reviewed by: Melodie Hernandez APRN.STORE MERCHANDISER - Fully Assessed Reason for Visit: 06/09 [...] (None) Encounter Status:Closed by ARMINDA WARD on 08/13/24[facility] [id number] Visit (REIBD) JAZ SANDERS ([id number]) 1995 F Date Time Provider Department 06/09/24 11:00 AM IGNACIO GUY During your visit today, we recorded the following information about you: Nichelle Gonzalez 06/09/2024 12:30 PM Signed IUI specimen released to provider Nichelle Gonzalez June 09, 2024 11:24 AM Nichelle Gonzalez 06/09/2024 12:30 PM Signed IUI Cryobio #: [id number] Washed frozen sample Post: 42 m/ml, 74% [...] Cycle Day: 13 Last menstrual period: 05/28/2024 Ackerly Protocol: UNIVERSAL PROTOCOL / SAFETY CHECKLIST Procedure [...] was discussed with the patient or authorized operations support representative. The patient or authorized operations support representative has agreed to proceed with the sensitive examination. (Sensitive examination includes inspection and/or palpation of the breasts, pelvis, prostate and anorectal regions) Patient declined chief medical director. Vidhi Sheldon MD IUI IUI Date: 06/09/24 [...] stopped. Will get pelivc scan here at [facility] if not with this IUI prior pt proceeding with another attmept at IUI. Ignacio Guy MD June 09, 2024 12:30 PM SIGNATURE: Vidhi Sheldon MD PATIENT NAME: Jaz Sanders DATE: June 09, 2024 TIME: 12:01 PM Referring Provider: DANIEL HANNA [[id number]] Allergies As of Date: 06/09/2024 (Not on File) Date Reviewed: 05/09/2024 Reviewed by: Melodie Hernandez APRN.STORE MERCHANDISER - Fully Assessed Primary Visit Diagnosis:Female infertility [...] (None) Encounter Status:Closed by IGNACIO GUY on 06/09/24[facility] Visit (ANDRBE) JAZ SANDERS ([id number]) 1995 F Date Time Provider Department 06/09/24 10:30 AM ANDROLOGY BEVEL POLISH[facility] During your visit today, we recorded the following information about you: Nichelle Gonzalez 06/09/2024 11:48 AM Signed Thaw for IUI Nichelle Gonzalez Referring Provider: DANIEL HANNA [[id number]] Allergies As of Date: 06/09/2024 (Not on File) Date Reviewed: 05/09/2024 Reviewed by: Melodie Hernandez APRN.STORE MERCHANDISER - Fully Assessed Primary Visit Diagnosis:Procreative management [...] (None) Encounter Status:Closed by NICHELLE GONZALEZ on 06/09/24[facility] Summaryon 55-97-9157Meopwx SummaryCENTRAL VALLEY MEDICAL CENTERBase 64 SbouwwzxVUr8uLr+PGhlYWQ+CB4HGWJfD74ezXPctI5vJ4JRJJbQEgyzYTCSYKsUGjZdqnEbSP1pxECw ZXJu [file] b2x (more content not included)...[facility] CenterProgesterone LCon 06-17-5842Nhgimnweugqw LC7.6 ng/mLInvalid Interpretation [facility] Comment on above:Result Comment: Follicular phase 0.1 - 0.9 Luteal phase 1.8 - 23.9 Ovulation phase 0.1 - 12.0 First trimester 11.0 - 44.3 Second trimester 25.4 - 83.3 Third trimester 58.7 - 214.0 Postmenopausal 0.0 - 0.1 Performed At: [facility] [address] [place], [place] [id number] J Luis Gray PhD Ph:[phone] By: #### [id number] ####[facility] (DEFAULT)[address] [place] [address] 18625Dbjopdwf Orderson 64-68-9010Vypzwcrg [id number]#1.00OTLouis Stokes Cleveland VA Medical CenterPhysical Therapy Noteon 44-50-7252Hyjqerdv Therapy Note [id number]#1.00OTPremier Health Atrium Medical Center 25([place])D3 [facility] Hospitalon 546185-asarmygwozvgha D3 [Mass/Vol]28.8 ng/mLLow 31.0-80.0Av HospitalComment on above:Order Comment: Specimen Type: BLOOD SPECIMEN Ordering Facility: [facility] Address: [address] [place], [place] [address]Result Comment: Classification of 25 [place] Vitamin D status: Deficiency/Insufficiency: < or = 30 ng/ml. Sufficiency/Optimal Levels: 31-80 ng/mL Toxicity: > 100 ng/mL. Test performed by chemiluminescent immunoassay.Performed By: #### 31996-7 #### [facility] CLIA [id number] [address] [place] [address] [place] [facility] HOSPITALC. trachomatis+N. gonorrhoeae DNA AC+probe Ql (Unsp spec)on 04-02-2024. trachomatis rRNA AC+probe Ql (Unsp spec)Not detectedNormalNot detectedAv HospitalComment on above:Order Comment: Specimen Type: BLOOD SPECIMEN Ordering Facility: [facility] Address: [address] [place], [place] [address]Performed By: #### 65887-3 #### [facility] CLIA [id number] [address] [place] [address] [place]ESE. gonorrhoeae rRNA AC+probe Ql (Unsp spec)Not detectedNormalNot detectedAv HospitalComment on above:Order Comment: Specimen Type: BLOOD SPECIMEN Ordering Facility: [facility] Address: [address] [place], [place] [address]Performed By: #### 61516-2 #### [facility] CLIA [id number] [address] [place] [address] [place] AMERICACARRIER SCREEN, EXPANDEDon 50-16-9781TAPUSAL SCREEN RESULTSView results in Scanned Documents link when available.NormalAv HospitalComment on above:Order Comment: Specimen Type: BLOOD SPECIMEN Ordering Facility: [facility] Address: [address] [place], [place] [address]Performed By: #### 80369-6 #### [facility] CLIA [id number] [address] [place] [address] [place] AMERICACMV IgG Qnon 00-66-5651MQH IGG QUALNegativeNormalNegativeAv HospitalComment on above:Order Comment: Specimen Type: BLOOD SPECIMEN Ordering Facility: [facility] Address: [address] [place], [place] [address]Result Comment: No serological evidence of past exposure to Cytomegalovirus. Cannot exclude recent infection if the specimen collected within 4-6 weeks after infection.Performed By: #### 1989-3RIO, 7852-7, 7853-5, VZVG2 #### [facility] CLIA [id number] [address] [place] [address] [place] AMERICACMV IgG SerPl-aCncon 26-15-3046UUG IgG Qn<0.20NormalAvon HospitalComment on above:Order Comment: Specimen Type: BLOOD SPECIMEN Ordering Facility: [facility] Address: [address] [place], [place] [address]Result Comment: The magnitude of the measured result is not indicative of the amount of antibody present. U/mL values are interpreted as follows: Negative <0.6 Equivocal 0.6 to <0.70 Positive >=0.70Performed By: #### 1989-3RIO, 7852-7, 7853-5, VZVG2 #### [facility] CLIA [id number] [address] [place] [address] [place] AMERICACMV IgM Qnon 09-80-3850NWK IGM, QUALNegativeNormalNegativeAvon HospitalComment on above:Order Comment: Specimen Type: BLOOD SPECIMEN Ordering Facility: [facility] Address: [address] [place], [place] [address]Result Comment: No serological evidence of recent exposure to Cytomegalovirus.Performed By: #### 1989-3, RUBIGG, 7852-7, 7853-5, VZVG2 #### [facility] CLIA [id number] [address] [place] [address] [place] AMERICAHBV core Ab Ser Qlon 14-25-8074KZO core Ab Ql (S)NegativeNormalNegativeAvon HospitalComment on above: Order Comment: Specimen Type: BLOOD SPECIMEN Ordering Facility: [facility] Address: [address] [place], [place] [address]Result Comment: No evidence of current or past infection with Hepatitis B virus. Should recent infection be suspected, repeat testing may be considered 3-4 weeks after this draw.Performed By: #### 49228-1, 5195-3, 62938-3, 41414-8 #### [facility] CLIA [id number] [address] [place] [address] [place] AMERICAHBV surface Ag Ser Qlon 71-57-2507TDA surface Ag Ql (S)NegativeNormalNegativeAvon HospitalComment on above:Order Comment: Specimen Type: BLOOD SPECIMEN Ordering Facility: [facility] Address: [address] [place], [place] [address]Performed By: #### 14585-3, 5195-3, 51105-7, 42230-6 #### [facility] CLIA [id number] [address] [place] [address] [place] AMERICAHCV Ab Ser Qlon 04-02-2024 HCV Ab Ql (S)NegativeNormalNegativeAvon HospitalComment on above:Order Comment: Specimen Type: BLOOD SPECIMEN Ordering Facility: [facility] Address: [address] [place], [place] [id number] Comment: The result suggests no evidence of active infection with Hepatitis C virus. Should recent infection be suspected, repeat testing may be considered 4-6 weeks after this draw. Performed By: #### 42764-0 #### [facility] CLIA [id number] [address] [place] [address] [place] AMERICAHIV 1+2 Ab IA Qlon 33-47-5091MEO 1 and 2 Ab IA.rapid Nom (S/P/Bld)NormalHeber Valley Medical CenterComment on above:Order Comment: Specimen Type: BLOOD SPECIMEN Ordering Facility: [facility] Address: [address] [place], [place] [address]Result Comment: Test not indicated. Performed By: #### 20414-8, 5195-3, 72133-7, 91628-1 #### [facility] CLIA [id number] [address] [place] [address] STATES OF AMERICAHIV 1+2 Ab+HIV1 p24 Ag IA Ql Non-ReactiveNormalNonreactiveHeber Valley Medical CenterComment on above:Order Comment: Specimen Type: BLOOD SPECIMEN Ordering Facility: [facility] Address: [address] [place], [place] [address]Performed By: #### 31455-3, 5195-3, 36192-8, 83853-4 #### [facility] CLIA [id number] [address] [place] [address] STATES OF AMERICAHIV immunoassay testing algorithm interpretation (S/P/Bld) [Interp][facility] Medical CenterComment on above: Order Comment: Specimen Type: BLOOD SPECIMEN Ordering Facility: [facility] Address: [address] [place], [place] [address]Result Comment: No evidence of HIV- 1 or HIV-2 infection. Should recent infection be suspected, repeat testing may be considered 2-3 weeks after this draw. [place] Rev. Code 3701.243(E): This information has been [...] HIV test results or diagnoses.Performed By: #### 52921-3, 5195-3, 82950-2, 23029-1 #### [facility] CLIA [id number] [address] [place] [address] [place] IXSWGHFRkY5x (Bld)on 04-02-2024 Average glucose Estimated from glycated hemoglobin (Bld) [Mass/Vol]85 mg/dL NormalAv HospitalComment on above:Order Comment: Specimen Type: BLOOD SPECIMEN Ordering Facility: [facility] Address: [address] [place], [place] [address]Result Comment: eAG: (Estimated average glucose) is a calculated value from HgbA1c and is operations support representative of the average blood glucose level in the last 2-3 month period.Performed By: #### 27260-6 #### [facility] CLIA [id number] [address] [place] [address] [place] WYOGOWKEzR1c (Bld) [Mass fraction] 4.6 %Normal4.3-5.6Avon HospitalComment on above:Order Comment: Specimen Type: BLOOD SPECIMEN Ordering Facility: [facility] Address: [address] [place], [place] [address]Result Comment: [place] [employer] guidelines indicate that patients with HgbA1c in the range 5.7-6.4% are at increased risk for development of diabetes, and intervention by lifestyle modification may be beneficial. HgbA1c greater or equal to 6.5% is considered diagnostic of diabetes.Performed By: #### 58168-5 #### [facility] CLIA [id number] [address] [place], [place] [address] [place] OF AMERICARUBELLA IGG ANTIBODYon 40-35-8092IZHNURR IGG AB, QUALPositiveNormalPositiveAv HospitalComment on above:Order Comment: Specimen Type: BLOOD SPECIMEN Ordering Facility: [facility] Address: [address] [place], [place] [address]Result Comment: The result suggests recent or past exposure to Rubella virus or history of Rubella vaccination. Positive result may also be seen due to presence of passively-transferred antibodies. Please correlate with patient's history.Performed By: #### 1989-3, RUBIGG, 7852-7, 7853-5, VZVG2 #### [facility] CLIA [id number] [address] [place] [address] [place] AMERICAReagin and Treponema pallidum IgG and IgM [Interp]on 04-02-2024T. pallidum IgG+IgM IA Ql (S) Non-ReactiveNormalNonreactiveHeber Valley Medical CenterComment on above:Order Comment: Specimen Type: BLOOD SPECIMEN Ordering Facility: [facility] Address: [address] [place], [place] [address]Performed By: #### 33621-3, 5195-3, 17355-8, 57861-5 #### [facility] CLIA [id number] [address] [place] [address] [place] AMERICAReagin+T pallidum IgG+IgM SerPl-Impon 89-60-0317Szufbc and Treponema pallidum IgG and IgM [Interp]Cannot exclude recent Treponemal infection if specimen collected within 7-10 days after appearance of suspect lesions or 2-3 weeks after an exposure. Clinical correlation is required.NormalAgate HospitalComment on above:Order Comment: Specimen Type: BLOOD SPECIMEN Ordering Facility: [facility] Address: [address] [place], [place] [address]Performed By: #### 75159-2, 5195-3, 24608-1, 51378-0 #### [facility] CLIA [id number] [address] [place] [address] [place] OF AMERICATYPE + SCREEN PRENATALon 02-29-2794MTFQMfiizzWixh HospitalComment on above:Order Comment: Specimen Type: BLOOD SPECIMEN Ordering Facility: [facility] Address: [address] [place], [place] [address]Performed By: #### TSPN #### [facility] [place] [id number] [address] [place] [address] [facility] HOSPITALRh Nom (Bld)[facility] Comment on above:Order Comment: Specimen Type: BLOOD SPECIMEN Ordering Facility: [facility] Address: [address] [place], [place] [address]Performed By: #### TSPN #### [facility] [place] [id number] [address] [place] [address] [facility] HOSPITALTYPE AND SCREEN ASCKPDBMVM81/19/2024 23:59[facility] CenterComment on above:Order Comment: Specimen Type: BLOOD SPECIMEN Ordering Facility: [facility] Address: [address] [place], [place] [address]Performed By: #### TSPN #### [facility] [id number] [address] [place] [address] [facility] HOSPITALVARICELLA ZOSTER IGGon 04-02-2024 VARICELLA ZOSTER IGG, QUALPositiveNormalPositiveAgate HospitalComment on above: Order Comment: Specimen Type: BLOOD SPECIMEN [facility]ing [facility] Address: [address] [place], [place] [address]Result Comment: The result suggests recent or past exposure to Varicella-Zoster virus or chickenpoxvaccination or zoster vaccination. Positive result may also be seen due to presence of passively-transferred antibodies. Please correlate with patient's history. Performed By: #### 95391-7 #### [facility] CLIA [id number] [address] [place] [address] STATES OF AMERICACoding Summaryon 03-20-2024 Coding SummaryMLBase 64 DopzddraWHq6eGk+PGhlYWQ+WP7RUVHsL64hvEIpiT9zK8YXHLrZIirgMUEGFKnTQxGjfpCtNA9zqUIj ZXJu [file] JSc (more content not included)...[facility] HospitalProvider Orderson 62-70-7583Plytbuqv [id number]#1.00OTGTIFF [facility].Auto Diff 1on 30-13-3157Rrti [place] %3 %Normal1-12[facility] HospitalComment on above:Performed By: #### [id number], [id number], [id number] #### [facility] (DEFAULT) [address] [place] [address] 44885Ltsw Abs#0.0 i74Weyqhk9.0-0.2Mprem[facility] HospitalComment on above:Performed By: #### [id number], 8694772, 5259425 #### [facility] (DEFAULT) [address] [place] [address] 40272Kdplhukuh/100 WBC (Bld)0.3 %Normal0.2-2.0[facility] Hospital Comment on above:Performed By: #### [id number], 0472497, [id number] #### [facility] (DEFAULT) [address] [place] [address] 32118Kek Abs#0.0 j33Mwranf6.0-0.4[facility] HospitalComment on above:Performed By: #### [id number], 7515850, 4639215 #### [facility] (DEFAULT) [address] [place] [address] 44582Xouhimmumdu/100 WBC (Bld)0.1 %Low0.9-4.0[facility] Hospital Comment on above:Performed By: #### [id number], 6272284, 3281316 #### [facility] (DEFAULT) [address] [place] [address] 56615Brkpw Abs#1.5 j11Vstiej8.3-2.9[facility] HospitalComment on above:Performed By: #### [id number], 8770668, 2523776 #### [facility] (DEFAULT) [address] [place] [address] 66922Rjyoosnnfph/100 WBC (Bld)16 %Bfvrcx11-35Lfmhcbum Hospital Comment on above:Performed By: #### [id number], 0676588, 7259868 #### [facility] (DEFAULT) [address] [place] [address] 28976Dtog Abs#0.3 r13Ewinzy5.0-0.8[facility] HospitalComment on above:Performed By: #### [id number], 9784002, 7148004 #### [facility] (DEFAULT) [address] [place] [address] 27473Fftz Abs#7.8 z05Ykfrhi7.5-9.2Mpremier health [facility] HospitalComment on above:Performed By: #### [id number], 3597191, 1992564 #### [facility] (DEFAULT) [address] [place] [address] 17475Gtkrmrkdbcr/100 WBC (Bld)81 %Trfomg51-64Mcxfngjs Hospital Comment on above:Performed By: #### [id number], 3042494, 3838717 #### [facility] (DEFAULT) [address] [place] [address] 78945NUQ w/ Auto Diffon 40-22-3542Mizscfvlyxb distribution width (RBC) [Ratio]13.9 %Njujlk63.5-15.0[facility] CenterComment on above: Performed By: #### [id number], 6224680, 1629220 #### [facility] (DEFAULT) [address] [place] [address] 72211Acnbwsmfkn (Bld) [Volume fraction]45.3 %High33.7-40.4 [facility] CenterComment on above:Performed By: #### [id number], 0589566, 4034270 #### [facility] (DEFAULT) [address] [place] [address] 01805Nuyeuykmlp (Bld) [Mass/Vol]15.5 g/sKZnudyk64.3-15.9 [facility] CenterComment on above:Performed By: #### [id number], 0523578, 3005032 #### [facility] (DEFAULT) [address] [place] [address] 79037Yhz Diff?AutoInvalid Interpretation CodeOhiohealth Nelsonville Health Center Comment on above:Performed By: #### [id number], 2230445, 2538226 #### [facility] (DEFAULT) [address] [place] [address] 76161AZW (RBC) [Entitic mass]29 cxKlsiti03-97Hfzsldcq Hospital Comment on above:Performed By: #### [id number], 7331099, 6124968 #### [facility] (DEFAULT) [address] [place] [address] 45535AHYH (RBC) [Mass/Vol]34 g/uPHyxqbw91-54Ckpgidqz Hospital Comment on above:Performed By: #### [id number], 8773150, 6566158 #### [facility] (DEFAULT) [address] [place] [address] 23639IPB (RBC) [Entitic vol]86 fPOmtvts48-011Zhvfyxzd Hospital Comment on above:Performed By: #### [id number], 7122041, 1524649 #### [facility] (DEFAULT) [address] [place] [address] 35530Holszceb773 b84Jgvfsv567-317Vcxkdryy HospitalComment on above:Performed By: #### [id number], 2827746, 6692643 #### [facility] (DEFAULT) [address] [place] [address] 09563Wxbwoymw mean volume (Bld) [Entitic vol]6.8 fLNormal 6.3-10.2Mpremier health [facility] HospitalComment on above:Performed By: #### [id number], 0918295, 7628288 #### [facility] (DEFAULT) [address] [place] [address] 37108WBA1.28 k93Cflkel1.70-5.30[facility] HospitalComment on above:Performed By: #### [id number], 1016312, 4165401 #### [facility] (DEFAULT) [address] [place] [address] 51081XJJ9.6 j57Moklsr8.5-10.5[facility] HospitalComment on above: Performed By: #### [id number], 6034963, 7025369 #### [facility] (DEFAULT) [address] [place] [address] 53006Guwoxkejnr 30-67-9848Qzyzgcwg [Mass/Vol]20.6 ng/mLNormal 12.0-150.0[facility] HospitalComment on above:Performed By: #### [id number], 5556593, 9267442 #### [facility] [address] [place] [address] 02213Ddod Levelon 12-61-5645Imdj [Mass/Vol]61.0 ug/dLNormal 28.0-170.0[facility] HospitalComment on above:Performed By: #### [id number] ####[facility] (DEFAULT)[address] [place] [address] [id number] ID: [id number] Author: IGNACIO GUY MD Service: ? Author [...] for three cycles. They will meet with TILE DITCHER to review the IUI checklist and sign consents. I spent a total of 45 minutes on the date of the service which included preparing to see the patient, nbnk-kl-ocgq patient care, completing clinical documentation, counseling and educating the patient/family/caregiver, and ordering medications, tests, or procedures. 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 They will meet with TILE DITCHER to review the IUI checklist and sign consents. I spent a total of 45 minutes on the date of the service which included preparing to see the patient, awpk-hm-gzeu patient care, com (more content not included)...NormalGreene Memorial HospitalP,APTIMA HPV,AGE GDLNon 02-28[birth year]24 AGE GDLN ACOG TESTINGNote.NOMS HealthcareComment on above:TESTS RESULT FLAG UNITS REF RANGE LAB Clinician Provided Cytology Information Source.............Cervix;Endocervix No. of containers..01 ThinPrep Vial Age Algo ACOG Ezequiel... 01 FLAG LEGEND: L-Low Normal,H-High Normal,LL-Alert Low,HH-Alert High <-Panic Low,>-Panic High,A-Abnormal,AA-Critical Abnormal Performed at: 01 =G [facility] [place] [address] Dagmar Love MD, IGP, RFX APTIMA HPV ASCUNote.NOMS HealthcareComment on above:TESTS RESULT FLAG UNITS REF RANGE LAB DIAGNOSIS: 02 NEGATIVE FOR INTRAEPITHELIAL LESION OR MALIGNANCY. Specimen adequacy: 02 Satisfactory for evaluation. Endocervical and/or squamous metaplastic cells (endocervical component) are present. Performed by: 02 Edel Sewell, Dairy Chemist ([facility]) . 02 Note: Note 02 [...] High,A-Abnormal,AA-Critical Abnormal Performed at: 02 [facility] [address] [place] [address] Dagmar Love MD, Performed at: =G - [facility] [address], [place] [id number] Product Safety Specialist: Dagmar Love MD, Phone: [phone] Performed at: - [address] [id number] Product Safety Specialist: Dagmar Love MD, Phone: [phone] BRUSH-SPATULA CERVIX ENDOCERVIX [facility] HospitalCo[facility] Summaryon 66-46-5552Whvmzo SummaryMLBase 64 RuithxbtKGv4qXi+PGhlYWQ+QO4WETRuB05rfFDxuG2tL8UNHJbCYeejQLWIQKrIQbBxdzFrRF5qnIYj ZXJu [file] [facility] (more content not included)...[facility] papilloma virus 16+18+31+33+35+39+45+51+52+56+58+59+66+68 DNA [Presence] in Addi 48-02-5499SLJ 16+18+31+33+35+39+45+51+52+56+58+59+66+68 DNA Probe+sig amp Ql (Cvx)Human papilloma virus 16+18+31+33+35+39+45+51+52+56+58+59+66+68 DNA [Presence] in Cer. [facility] Private HospitalComment on above:TESTS RESULT FLAG UNITS REF RANGE LAB DIAGNOSIS: 02 NEGATIVE FOR INTRAEPITHELIAL LESION OR MALIGNANCY.Specimen adequacy: 02 Satisfactory forevaluation. Endocervical and/or squamous metaplastic cells (endocervical component) are present.Performed by: 02 Edel Sewell, Dairy Chemist ([facility]). 02Note: Note 02 The Pap [...] <-Panic Low,>- Panic High,A-Abnormal,AA-Critical Abnormal Performed at:[address] [address] Dagmar Love MD, Nnpavozbb at: = - [facility] [id number] Director: Dagmar Love MD, Phone: [phone] at: [facility] [id number] Director: Dagmar Love MD, Phone: [phone] Panel Informationon 28-06-0393Bcqdgkkgy Lab Test Patient AgeNotcolt.[facility] Private HospitalComment on above:TESTS RESULT FLAG UNITS REF RANGE LAB Clinician Provided Cytology Information Source.............Cervix;Endocervix No. of containers..01 ThinPrep VialAge Olafo HUMAOG Ezequiel... FLAG LEGEND: L-Low Normal,H-High Normal,LL-Alert Low,HH-Alert High <-Panic Low,>-Panic High,A- Abnormal,AA-Critical Abnormal Performed a t:01 =G [address] [address] Dagmar Love MD, .Auto Diff 1on 95-34-1178Azdq [place] %6 %Normal1-12 [facility] CenterComment on above:Performed By: #### [id number] #### [facility] (DEFAULT) [address] [place] [address] 74928Eurv Abs#0.0 q21Pkqnte9.0-0.2[facility] HospitalComment on above:Performed By: #### [id number] #### [facility] (DEFAULT) [address] [place] [address] 65838Tvadtoeui/100 WBC (Bld)0.3 %Normal0.2-2.0[facility] Hospital Comment on above:Performed By: #### [id number] #### [facility] (DEFAULT) [address] [place] [address] 12930Uny Abs#0.2 k75Jgzgco1.0-0.4[facility] HospitalComment on above:Performed By: #### [id number] #### [facility] (DEFAULT) [address] [place] [address] 42726Enddufxfuke/100 WBC (Bld)3.4 %Normal0.9-4.0[facility] HospitalComment on above:Performed By: #### [id number] #### [facility] (DEFAULT) [address] [place] [address] 85735Ykfks Abs#2.4 f92Fpriae9.3-2.9[facility] HospitalComment on above:Performed By: #### [id number] #### [facility] (DEFAULT) [address] [place] [address] 70507Btungkiwysz/100 WBC (Bld)34 %Qynaov00-48Bahchrrx Hospital Comment on above:Performed By: #### [id number] #### [facility] (DEFAULT) [address] [place] [address] 38641Nxzx Abs#0.4 l74Ngbapi6.0-0.8[facility] HospitalComment on above:Performed By: #### [id number] #### [facility] (DEFAULT) [address] [place] [address] 22493Raku Abs#4.0 k49Wqypzq1.5-9.2Mprem[facility] health [facility] HospitalComment on above:Performed By: #### [id number] #### [facility] (DEFAULT) [address] [place] [address] 35857Zwlzwumsxgn/100 WBC (Bld)56 %Ydmrku37-60[facility] Comment on above:Performed By: #### [id number] #### [facility] (DEFAULT) [address] [place] [address] 16543VYY w/ Auto Diffon 47-95-8546Qlyvmxjaxjs distribution width (RBC) [Ratio]14.0 %Wswnlf84.5-15.0[facility] HospitalComment on above: Performed By: #### [id number] #### [facility] (DEFAULT) [address] [place] [address] 65943Owyxfxnhtv (Bld) [Volume fraction]41.7 %High33.7-40.[address] [facility] HospitalComment on above:Performed By: #### [id number] #### [facility] (DEFAULT) [address] [place] [address] 53219Voymvpgvdc (Bld) [Mass/Vol]14.1 g/aNYzyexj25.3-15.[address] [facility] HospitalComment on above:Performed By: #### [id number] #### [facility] (DEFAULT) [address] [place] [address] 33827Ejh Diff?AutoInvalid Interpretation CodeOhiohealth Nelsonville Health Center Comment on above:Performed By: #### [id number] #### [facility] (DEFAULT) [address] [place] [address] 78724QFA (RBC) [Entitic mass]29 qdLbktax94-59Pvpqbnoc Hospital Comment on above:Performed By: #### [id number] #### [facility] (DEFAULT) [address] [place] [address] 86657EJSA (RBC) [Mass/Vol]34 g/yKUdnfzn59-63Aoetioeu Hospital Comment on above:Performed By: #### [id number] #### [facility] (DEFAULT) [address] [place] [address] 92970WTJ (RBC) [Entitic vol]86 gSAyomnu45-525Lgemhljm Hospital Comment on above:Performed By: #### [id number] #### [facility] (DEFAULT) [address] [place] [address] 51492Cpnehtui156 l32Xeubcj865-871Ahmrhxbt HospitalComment on above:Performed By: #### [id number] #### [facility] (DEFAULT) [address] [place] [address] 60447Aestppup mean volume (Bld) [Entitic vol]6.8 fLNormal 6.3-10.2Mprem[facility] health [facility] HospitalComment on above:Performed By: #### [id number] #### [facility] (DEFAULT) [address] [place] [address] 43412NZJ2.84 y27Osumkl6.70-5.30[facility] HospitalComment on above:Performed By: #### [id number] #### [facility] (DEFAULT) [address] [place] [address] 18030UML7.1 z09Llxpyp9.5-10.5[facility] HospitalComment on above: Performed By: #### [id number] #### [facility] (DEFAULT) [address] [place] [address] 55422Kenmkkxuiw 46-76-7306Eoazirpc [Mass/Vol]15.8 ng/mLNormal 12.0-150.0[facility] HospitalComment on above:Performed By: #### [id number], 2225956, 5042029 #### [facility] (DEFAULT) [address] [place] [address] 70414Gzzn Profileon 44-58-7828Evej [Mass/Vol]72.0 ug/dLNormal 28.0-170.0[facility] HospitalComment on above:Performed By: #### [id number], 8395601, 2684108 #### [facility] (DEFAULT) [address] [place] [address] 49901Jvzk Sat19 %Jbt01-57Ryjtrtja HospitalComment on above: Performed By: #### [id number], 8342562, 3953707 #### [facility] (DEFAULT) [address] [place] [address] 01053XFAE041 mcg/aEFvygwj047-382Celxjomw HospitalComment on above:Performed By: #### [id number], 9864848, 4382626 #### [facility] (DEFAULT) [address] [place] [address] 01136Rfsacxwlakd [Mass/Vol]274.6 mg/hWSygdpz789.0-382.0[facility] HospitalComment on above:Performed By: #### [id number], 4355824, 7096322 #### [facility] (DEFAULT) [address] [place] [address] 88151Qjoxfd Summaryon 47-02-1511Fwduth SummaryMLBase 64 VrutuvwxQLp4wZx+PGhlYWQ+JW8ESPNyN19gvGBpbS5tR7BXACuTHzkfZRDKVQiSUhAeogMfSM8tpMOz ZXJu [file] c (more content not included)...[facility] CenterAmphetamine Screen Ql (U)Ordered By: Andry Lacy on 45-17-5571Ovfgggfvqjaq Ql (U)Amphetamines screenNegativeOhiohealth CenterAmphetamines Ql (U)Negative NegativeKeenan Private HospitalBarbiturates [Presence] in Urine by Screen methodOrdered By: Andry Lacy on 66-64-9064Asnizhjeohtq Screen Ql (U) NegativeNegativeKeenan Private HospitalBarbiturates Screen Ql (U) Barbiturates [Presence] in Urine by Screen methodNegWhite HospitalBenzodiazepines Screen Ql (U)Ordered By: Andry Lacy on 17-19-6591Qbjikihbqzenffz Ql (U)PositiveHighNegWhite HospitalBenzodiazepines Ql (U)Benzodiazepines [Presence] in Urine by Screen method HighNegWhite HospitalBenzoylecgonine [Presence] in Urine by Screen methodOrdered By: Andry Lacy on 05-62-2104Zloolhwoqpegtwo Screen Ql (U)NegativeNegWhite HospitalBenzoylecgonine Screen Ql (U)Benzoylecgonine [Presence] in Urine by Screen methodNegWhite HospitalCannabinoids [Presence] in Urine by Screen methodOrdered By: Andry Lacy on 04-08-8761Wunatyxqchfl Screen Ql (U)PositiveHighBerger HospitalComment on above:These are unconfirmed results and should not be used for legal purposes. Drug Cut-Off Concentration: AMPH 1000 ng/mL LUIS ANTONIO 200 ng/mL JOHN 200 ng/mL COCM 300 ng/mL OP 300 ng/mL PCP 25 ng/mL THC 20 ng/mLCannabinoids Screen Ql (U)Cannabinoids [Presence] in Urine by Screen methodHighNegWhite HospitalComment on above:These are unconfirmed results and should not be used for legal purposes. Drug Cut-Off Concentration: AMPH 1000 ng/mL LUIS ANTONIO 200 ng/mL JOHN 200 ng/mL COCM 300 ng/mL OP 300 ng/mL PCP 25 ng/mL THC 20 ng/mLHCG ( test) IA.rapid Ql (U)Ordered By: Andry Lacy on 37-88-9474IVF ( test) Ql (U)NegativeKeenan Private HospitalHCG ( test) Ql (U)Urine human chorionic gonadotropin (hCG) detection by immunoassayKeenan Private Hospital Opiates [Presence] in Urine by Screen methodOrdered By: Andry Lacy on 50-55-9844Lljfcsv Screen Ql (U)NegativeNegativeKeenan Private Hospital Opiates Screen Ql (U)Opiates [Presence] in Urine by Screen methodNegative [facility] HospitalPhencyclidine Screen Ql (U)Ordered By: Andry Lacy on 14-93-4481Lyblgilmcjijp Ql (U)NegativeNegativeKeenan Private HospitalPhencyclidine Ql (U)Phencyclidine [Presence] in Urine by Screen methodNegativeKeenan Private HospitalAlanine aminotransferase [Enzymatic activity/volume] in Serum or PlasmaOrdered By: Romeo Santana on 17-27-7707ZEB [Catalytic activity/Vol]14 U/L7-52[facility] Private HospitalAlbumin [Mass/volume] in Serum or Plasma by Bromocresol green (BCG) dye binding methoOrdered By: Romeo Santana on 92-87-9073Rgvyrlm BCG dye [Mass/Vol]4.6 g/dL3.5-5.7FSalem Regional Medical CenterAlkaline phosphatase [Enzymatic activity/volume] in Serum or PlasmaOrdered By: Romeo Santana on 36-93-1092TDM [Catalytic activity/Vol]41 U/Q82-777QgiwetvfgKeenan Private HospitalAspartate aminotransferase [Enzymatic activity/volume] in Serum or PlasmaOrdered By: Romeo Santana on 94-42-1456SIV [Catalytic activity/Vol]13 U/Z81-61EniwuonfmKeenan Private HospitalBasophils Auto (Bld) [#/Vol]Ordered By: Romeo Santana on 11-28-2023 Basophils (Bld) [#/Vol]0.0 10*3/uL0.0-0.2FSalem Regional Medical Center Basophils/100 WBC Auto (Bld)Ordered By: Romeo Santana on 13-58-9708Kgmqdywcz/100 WBC (Bld)0.3 %.[facility] Private HospitalBilirubin.total [Mass/volume] in Serum or PlasmaOrdered By: Romeo Santana on 43-25-4528Lghmjgrgx [Mass/Vol]0.5 mg/dL0.3-1.0[facility] HospitalCalcium [Mass/volume] in Serum or PlasmaOrdered By: Romeo Santana on 78-94-7548Hwpmtvy [Mass/Vol]9.4 mg/dL8.6-10.3 [facility] Private HospitalCarbon dioxide, total [Moles/volume] in Serum or PlasmaOrdered By: Romeo Santana on 68-97-3346WW3 [Moles/Vol]27.8 mmol/L 21.0-31.0[facility] Private HospitalChloride [Moles/volume] in Serum or PlasmaOrdered By: Romeo Santana on 12-66-7086Ndmlrvyq [Moles/Vol]106 mmol/L98-107 [facility] HospitalCreatinine [Mass/volume] in Serum or Plasma Ordered By: Romeo Santana on 83-48-0193Iwvogxkrep [Mass/Vol]0.62 mg/dL0.60-1.20 [facility] Private HospitalEosinophils Auto (Bld) [#/Vol]Ordered By: Romeo Santana on 98-78-0398Ojdzlebvwjv (Bld) [#/Vol]0.2 10*3/uL0.0-0.45[facility]an Private HospitalEosinophils/100 WBC Auto (Bld)Ordered By: Romeo Santana on 43-96-6657Wzeuufwquyj/100 WBC (Bld)3.5 %.[facility] Erythrocyte distribution width Auto (RBC) [Ratio]Ordered By: Romeo Santana on 47-66-7593Lujwtwqqhdx distribution width (RBC) [Ratio]14.0 %11.9-15.3FSalem Regional Medical CenterGlobulin Calc (S) [Mass/Vol]Ordered By: Romeo Santana on 66-15-4373Aiqwggjk (S) [Mass/Vol]2.0 g/dLKeenan Private Hospital Glucose [Mass/volume] in Serum or PlasmaOrdered By: Romeo Santana on 11-28-2023 Glucose [Mass/Vol]76 mg/wU27-546HribiwmhvKeenan Private HospitalHematocrit Auto (Bld) [Volume fraction]Ordered By: Romeo Santana on 17-75-8505Eizbfumgga (Bld) [Volume fraction]40.1 %34.0-46.4FSalem Regional Medical CenterHemoglobin [Mass/volume] in BloodOrdered By: Romeo Santana on 12-00-8283Upxjjpdcsm (Bld) [Mass/Vol]13.6 g/dL11.8-15.4FSalem Regional Medical CenterLeukocytes [#/volume] corrected for nucleated erythrocytes in Blood by Automated coun Ordered By: Romeo Santana on 43-36-2057GCG corrected for nucl RBC Auto (Bld) [#/Vol]6.4 10*3/uL3.8-11.6FSalem Regional Medical CenterLymphocytes Auto (Bld) [#/Vol]Ordered By: Romeo Santana on 17-38-3894Seolblkipln (Bld) [#/Vol]2.4 10*3/uL1.00-4.8[facility] HospitalLymphocytes/100 WBC Auto (Bld) Ordered By: Romeo Santana on 00-83-6618Pyhgsmcrfcj/100 WBC (Bld)38.3 %.[facility] HospitalMCH Auto (RBC) [Entitic mass]Ordered By: Romeo Santana on 74-85-6479KAI (RBC) [Entitic mass]29.3 pg24.7-34.3FSalem Regional Medical CenterMCHC Auto (RBC) [Mass/Vol]Ordered By: Romeo Santana on 86-04-3491LINM (RBC) [Mass/Vol]33.8 g/dL32.0-35.0[facility] HospitalMCV Auto (RBC) [Entitic vol]Ordered By: Romeo Santana on 17-17-3201NMH (RBC) [Entitic vol]86.7 qW39-267NrhbkxrcqKeenan Private HospitalMonocytes Auto (Bld) [#/Vol]Ordered By: Romeo Santana on 37-81-2986Otoliyueg (Bld) [#/Vol]0.4 10*3/uL0.0-0.8[facility] HospitalMonocytes/100 WBC Auto (Bld)Ordered By: Romeo Santana on 98-39-4527Falimprzp/100 WBC (Bld)5.8 %.[facility] Neutrophils Auto (Bld) [#/Vol]Ordered By: Romeo Santana on 25-94-5635Allhynhqshq (Bld) [#/Vol]3.3 10*3/uL1.8-7.7FSalem Regional Medical CenterNeutrophils/100 WBC Auto (Bld)Ordered By: Romeo Santana on 64-85-0280Fcwqqahzdft/100 WBC (Bld) 52.1 %.[facility] HospitalNo Panel InformationOrdered By: Romeo Santana on 01-10-9294Qdhlrnuog GFR (CKD-EPI)> 60.0 mL/MinKeenan Private HospitalPharmacy Creatinine Clearance (ChemN/AFSalem Regional Medical CenterNucleated erythrocytes [Presence] in Blood by Automated countOrdered By: Romeo Santana on 03-65-6243Jsrtmnvub RBC Auto Ql (Bld)0.0 /100{WBC}0-0.5FSalem Regional Medical CenterPlatelet mean volume Auto (Bld) [Entitic vol]Ordered By: Romeo Santana on 01-88-8784Jgxwbsxh mean volume (Bld) [Entitic vol]6.8 fL6.3-10.7 [facility] HospitalPlatelets Auto (Bld) [#/Vol]Ordered By: Romeo Santana on 21-77-7156Dsyafldxk (Bld) [#/Vol]159 10*3/sW417-149IugmjawnzKeenan Private HospitalPotassium [Moles/volume] in Serum or PlasmaOrdered By: Romeo Santana on 65-28-7281Pfwbnrzta [Moles/Vol]4.2 mmol/L3.5-5.1FSalem Regional Medical CenterProtein [Mass/volume] in Serum or PlasmaOrdered By: Romeo Santana on 91-35-3690Kcucqai [Mass/Vol]6.6 g/dL6.4-8.9[facility] RBC Auto (Bld) [#/Vol]Ordered By: Romeo Santana on 98-41-0359ALB (Bld) [#/Vol] 4.63 10*6/uL3.60-5.00[facility] Medical Centererum or plasma albumin/globulin mass ratioOrdered By: Romeo Santana on 11-28-2023 Albumin/Globulin [Mass ratio]2.3 {ratio}[facility] Medical Centererum or plasma anion gap determinationOrdered By: Romeo Santana on 00-45-7108Bgdhz gap [Moles/Vol]10.4 mmol/L6.0-15.0[facility] Medical Centerodium [Moles/volume] in Serum or PlasmaOrdered By: Romeo Santana on 06-80-4795Wexjni [Moles/Vol]140 mmol/C813-003BshmrgzjyKeenan Private HospitalUrea nitrogen [Mass/volume] in Serum or PlasmaOrdered By: Romeo Santana on 69-10-2888Idln nitrogen [Mass/Vol]7 mg/dL7-25[facility] HospitalWBC Auto (Bld) [#/Vol]Ordered By: Romeo Santana on 69-80-8847HGG (Bld) [#/Vol]6.4 10*3/uL 3.8-11.6FSalem Regional Medical CenterCoding Summaryon 55-88-4897Echjdy SummaryHTMLBase 64 ClshxppfQAj6xFy+PGhlYWQ+KR6ZWNLqR82wpXPemA2vO5CKRTrOXwhjEUGKRHvWQoPjqjVbKN7keBDe ZXJu [file] b3J (more content not included)...NormalMagruder HospitalCoding SummaryHTMLBase 64 IgrbjqctARg2kPe+PGhlYWQ+KB7BLSYpP31xkSPajY8qA9DWBCfBDycbSBRIVXoFRsOuscQnWI1hoFMv ZXJu [file] b3J (more content not included)...[facility] HospitalProvider Orderson 65-24-2453Bfzrnizg [id number]#1.00OTGTIFF [facility] CenterChlamydia/GC Amplification LCon 34-45-2474Nkdravlxg trachomatis, AC LCNegativeInvalid Interpretation CodeNegUniversity Hospitals Ahuja Medical Center Comment on above:Performed By: #### [id number] #### [facility] (DEFAULT) [address] [place] [address] 99920Jbcatnyrj gonorrhoeae, AC LCNegativeInvalid Interpretation CodeNegUniversity Hospitals Ahuja Medical CenterComment on above:Result Comment: Performed At: =[facility] [id number] Ivan Calvin MD Ph:[phone] By: #### [id number] #### [facility] (DEFAULT) [address] [place] [address] 57716Pluhdeh Formson 83-80-8616Wjowfxt Forms [id number]#1.00OTGTIFFChillicothe VA Medical CenterED Note-Nursingon 93-07-5483ZX Note-NursingFluconazole 150mg tab called [facility] Patient contacted and notified of the results of her culture and the prescription that was sent forher. Instructions on how to take the medication was given, patient verbalized understanding [facility].Auto Diff 1on 68-59-7756Ukpg [place] %9 %Normal1-12[facility] Comment on above:Performed By: #### [id number], [id number], [id number] #### [facility] (DEFAULT) [address] [place] [address] 86740Dzlc Abs#0.0 p24Soathp4.0-0.2Mpremier health miami [facility] hospital south HospitalComment on above:Performed By: #### [id number], [id number], [id number] #### [facility] (DEFAULT) [address] [place] [address] 90583Rixmswkzn/100 WBC (Bld)0.2 %Normal0.2-2.0[facility] Comment on above:Performed By: #### [id number], [id number], [id number] #### [facility] (DEFAULT) [address] [place] [address] 07999Spq Abs#0.3 s98Nluxda1.0-0.4[facility] HospitalComment on above:Performed By: #### [id number], 9708539, [id number] #### [facility] (DEFAULT) [address] [place] [address] 61021Kivbafkhgzo/100 WBC (Bld)9.0 %High0.9-4.0[facility] Comment on above:Performed By: #### [id number], [id number], 1395110 #### [facility] (DEFAULT) [address] [place] [address] 46007Fwsef Abs#0.4 u62Lsl0.3-2.9[facility] HospitalComment on above:Performed By: #### [id number], 0779508, [id number] #### [facility] (DEFAULT) [address] [place] [address] 04306Xkoqbnvuiqk/100 WBC (Bld)12 %Zyi88-64InurjmdgOhiohealth Nelsonville Health Center Comment on above:Performed By: #### [id number], 9944208, 9609013 #### [facility] (DEFAULT) [address] [place] [address] 69320Crms Abs#0.3 s20Yhtrkq3.0-0.8[facility] HospitalComment on above:Performed By: #### [id number], 8748897, [id number] #### [facility] (DEFAULT) [address] [place] [address] 38600Okdd Abs#2.4 z55Vfkuzd9.5-9.2Mpremier health miami [facility] hospital south HospitalComment on above:Performed By: #### [id number], 2887104, 0636541 #### [facility] (DEFAULT) [address] [place] [address] 37365Elpveqhbief/100 WBC (Bld)70 %Vfismg02-37Ofvtaolr Hospital Comment on above:Performed By: #### [id number], [id number], 9883754 #### [facility] (DEFAULT) [address] [place] [address] 30428I Genitalon 11-02-2023 GenitalHeavy growth of Yeast No CARLOS performed on this organism No growth of GC at 3 days. 4+ Gram Positive Rods Few Yeast No WBC's seen. Gram Negative Diplococci not seen.[facility] Medical CenterComment on above: Performed By: #### [id number] #### [facility] (DEFAULT) [address] [place] [address] 10907NIZ w/ Auto Diffon 04-36-2672Fnhbkobwses distribution width (RBC) [Ratio]13.7 %Rgpovu34.5-15.0[facility] CenterComment on above: Performed By: #### [id number], [id number], [id number] #### [facility] (DEFAULT) [address] [place], [place] [address]Hematocrit (Bld) [Volume fraction]40.5 %High33.7-40.4 [facility] CenterComment on above:Performed By: #### [id number], 7471870, 8540934 #### [facility] (DEFAULT) [address] [place], [place] [address]Hemoglobin (Bld) [Mass/Vol]13.7 g/gVCadmon19.3-15.9 [facility] CenterComment on above:Performed By: #### [id number], 3491981, 0644907 #### [facility] (DEFAULT) [address] [place] [address] 15203Zhp Diff?AutoInvalid Interpretation [facility] Comment on above:Performed By: #### [id number], 0489021, 4265143 #### [facility] (DEFAULT) [address] [place] [address] 01829NPD (RBC) [Entitic mass]29 nvPryysn76-45Eucxhnjq Hospital Comment on above:Performed By: #### [id number], 9136857, 5713491 #### [facility] (DEFAULT) [address] [place] [address] 94307GUNV (RBC) [Mass/Vol]34 g/dQVbszjm35-02Lylzxymp Hospital Comment on above:Performed By: #### [id number], 1510281, 9823184 #### [facility] (DEFAULT) [address] [place] [address] 74074WQC (RBC) [Entitic vol]85 tISkeqgm07-254Shicwsnr Hospital Comment on above:Performed By: #### [id number], 3563100, 1021610 #### [facility] (DEFAULT) [address] [place] [address] 99972Gsgsdvmj780 b85Skk447-041Llcsbdpn HospitalComment on above:Performed By: #### [id number], 4364802, 1323523 #### [facility] (DEFAULT) [address] [place] [address] 73999Civfktmu mean volume (Bld) [Entitic vol]7.0 fLNormal 6.3-10.2Mpremier health mi[facility] HospitalComment on above:Performed By: #### [id number], 2473018, 7070829 #### [facility] (DEFAULT) [address] [place] [address] 67251KVT9.74 i87Znhloj5.70-5.30[facility] HospitalComment on above:Performed By: #### [id number], 7524789, 7456509 #### [facility] (DEFAULT) [address] [place] [address] 79834LAL1.5 s42Xocyjc0.5-10.5[facility] CenterComment on above: Performed By: #### [id number], 2581009, 3401862 #### [facility] (DEFAULT) [address] [place] [address] 87423GBS Standardon 71-34-4943fPAP Non AA>60Invalid Interpretation [facility] CenterComment on above:Performed By: #### [id number], 7715737, 0372683 #### [facility] (DEFAULT) [address] [place] [address] 85722bHFA AA>60Invalid Interpretation [facility] Comment on above:Performed By: #### [id number], 0050693, 8688248 #### [facility] (DEFAULT) [address] [place] [address] 40811Adaevqx [Mass/Vol]4.1 g/dLNormal3.5-5.0[facility] Comment on above:Performed By: #### [id number], 7299735, 1159749 #### [facility] (DEFAULT) [address] [place] [address] 77341Etvshtz/Globulin [Mass ratio]1.7 {ratio}Normal1.4-2.[address] [facility] HospitalComment on above:Performed By: #### [id number], 4951886, 4413746 #### [facility] (DEFAULT) [address] [place] [address] 15558Rof Phos40 IU/IHqwnrx63-19Tvyrwndd HospitalComment on above:Performed By: #### [id number], 4015143, 6689730 #### [facility] (DEFAULT) [address] [place] [address] 20193PEQ [Catalytic activity/Vol]20.0 U/UXjrhbe49.0-54.[address] [facility] HospitalComment on above:Performed By: #### [id number], 8532156, 2268413 #### [facility] (DEFAULT) [address] [place] [address] 46174Iholy gap [Moles/Vol]9.5 mmol/LNormal5.0-19.0[facility] CenterComment on above:Performed By: #### [id number], 7786766, 6809087 #### [facility] (DEFAULT) [address] [place] [address] 55521ZDO [Catalytic activity/Vol]19 U/VOunllc18-37Cqnyfpkw HospitalComment on above:Performed By: #### [id number], 1106565, 9333564 #### [facility] (DEFAULT) [address] [place] [address] 76493Ozob Total0.7 mg/dLNormal0.3-1.2Mpremier health [facility] HospitalComment on above:Performed By: #### [id number], 7536916, 8764410 #### [facility] (DEFAULT) [address] [place] [address] 71807Bsolyhl [Mass/Vol]8.4 mg/dLLow8.9-10.3Mprem[facility] health [facility] Hospital Comment on above:Performed By: #### [id number], 6918332, 9915394 #### [facility] (DEFAULT) [address] [place] [address] 84997Tdvkdduv [Moles/Vol]109 mmol/OOltgql640-680Gpvtyztm HospitalComment on above:Performed By: #### [id number], 4323804, 8305864 #### [facility] (DEFAULT) [address] [place] [address] 12782JE8 [Moles/Vol]21 mmol/MStlqru23-86Xhkbjbll Hospital Comment on above:Performed By: #### [id number], 0166695, 0147530 #### [facility] (DEFAULT) [address] [place] [address] 91438Ihbqchincy [Mass/Vol]0.71 mg/dLNormal0.60-1.30[facility] CenterComment on above:Performed By: #### [id number], 2015396, 5761516 #### [facility] (DEFAULT) [address] [place] [address] 26561Idbphmfb (S) [Mass/Vol]2.4 g/dLNormal1.5-4.3MMadison HealthComment on above:Performed By: #### [id number], 0800568, 8650891 #### [facility] (DEFAULT) [address] [place] [address] 60244Hucqoop [Mass/Vol]95.0 mg/sINwmqqo41.0-118.0[facility] CenterComment on above:Performed By: #### [id number], 4906185, 9438458 #### [facility] (DEFAULT) [address] [place] [address] 21493Wcseawzfbz773 mOsm/LInvalid Interpretation CodeMercy Health St. [facility] HospitalComment on above:Performed By: #### [id number], 9212693, 5777121 #### [facility] (DEFAULT) [address] [place] [address] 08277Lwkgmgsvh [Moles/Vol]3.5 mmol/LLow3.6-5.1Mprem[facility] health [facility] Hospital Comment on above:Performed By: #### [id number], 9418854, 0067026 #### [facility] (DEFAULT) [address] [place] [address] 28509Odxifbo [Mass/Vol]6.5 g/dLNormal6.5-8.1MMadison Health Comment on above:Performed By: #### [id number], 3160814, 3783412 #### [facility] (DEFAULT) [address] [place] [address] 75492Zfqmhz [Moles/Vol]136.0 mmol/VTzvbzj396.0-144.0[facility] CenterComment on above:Performed By: #### [id number], 1346517, 2589042 #### [facility] (DEFAULT) [address] [place] [address] 41201Pkan nitrogen [Mass/Vol]7 mg/dLLow8-26[facility] Comment on above:Performed By: #### [id number], 8167169, 4609516 #### [facility] (DEFAULT) [address] [place] [address] 99166Rxon nitrogen/Creatinine [Mass ratio]9.8 mg/mgNormal 4.6-16.2MMadison HealthComment on above:Performed By: #### [id number], 4324133, 2402206 #### [facility] (DEFAULT) [address] [place] [address] 80044RH Abdomen/Pelvis w/ Contraston 72-44-4608IR Abdomen/Pelvis w/ ContrastEXAMINATION: CT Abdomen/Pelvis w/ Contrast, [...] Monteiro DO 11/02/23 3:37 pm Technologist: [facility] Clinical Summaryon 87-56-5420VT [facility] [address] [place] [address] [id number] ED Clinical Summary PERSON INFORMATION Name: JAZ SANDERS Age: 28 Years Sex: FEMALE : 1995 MRN: Acct#: Visit Reason: Abdominal pain; Nausea; FLANK/HIP PAIN, FEVER Arrival: 11/02/2023 07:57:28 Discharge: 11/02/2023 13:31:00 LOS: 000 05:34 Check In: 11/02/2023 07:57:28 Checkout:11/02/2023 13:31:00 Address: [facility] [address] PCP: Amanda Ford CNP PROVIDER INFORMATION Provider [...] Follow-Up: With: Address: When: Amanda Ford CNP [address] [place] [address] Within 3 to 5 days DIAGNOSIS: 1:Hip pain Patient Understands: Yes - Patient/family/caregiver verbalizes understanding of instructions given Comment:[facility] Patient Summaryon 50-20-2969DB Patient Summary [facility] - Emergency Department [address] [place] [address] PATIENT DISCHARGE INSTRUCTIONS Patient Information Name: JAZ SANDERS Age: 28 Years Date of : 1995 Reason For Visit: Abdominal pain; Nausea; FLANK/HIP PAIN, FEVER Arrival Time: 11/02/2023 07:57:28 Primary Care Physician: Amanda Ford CNP Attending Physician: Narda Phillips MD Comment: Visit Diagnosis: Diagnoses This Visit Abdominal pain ([id number]) Hip pain (M25.559) Nausea (VKr4CVE3rEfvAkBAy8zdox) The Pharmacy at [facility] is open Tuesday through Tuesday from [...] alcohol and/or drug addiction problems; contact the [facility] 08/11 Crisis Hotline -Text 7IUDI fm [phone]. If you received any narcotics, sedation, or [...] documents With: Address: When: Amanda Ford CNP [facility] [place] [address] Within 3 to 5 days Medication Information: The exam and treatment you received today in the [facility] Emergency Department were for an urgent problem and are not intended as complete care. It is important for you to follow up with a doctor, nurse practitioner, or physician?s household personal assistant for ongoing care. If your symptoms [...] we can reach you if necessary. [facility] Emergency Department has provided you with a complete list of medications post discharge. Please inform your thread dresser/provider of your visit and for further instruction on these medications. Any specific questions regarding your chronic medications and dosages should be discussed with your primary care physician(s) and/or pharmacist. New Medications [facility] [address], [place] [id number], [phone] cyclobenzaprine (cyclobenzaprine 10 mg oral tablet) 1 [...] Refills: 0. lidocaine topic (more content not included)...[facility] Medical CenterExtra Green on 93-59-2945Slgz CollectedYesInvalid Interpretation [facility] Comment on above:Performed By: #### [id number], [id number], [id number] #### [facility] (DEFAULT) [address] [place] [address] 34086Pofewjkhv Test Urine 1on 11-02-2023U PregNegativeMemorial Health System Selby General HospitalComment on above:Performed By: #### [id number] #### [facility] (DEFAULT) [address] [place] [address] 65576R Preg Internal ControlPassChillicothe VA Medical CenterComment on above:Performed By: #### [id number] #### [facility] (DEFAULT) [address] [place] [address] 34020NW Gprkg2ay 89-13-0874SH BacteriaTraceChillicothe VA Medical CenterComment on above:Order Comment: Urinalysis Microscopic order added on by [employer] Mask Rules system.Performed By: #### [id number] #### [facility] (DEFAULT) [address] [place] [address] 70588QG Mucous1+[facility] Medical CenterComment on above:Order Comment: Urinalysis Microscopic order added on by [employer] Expert Rules system. Performed By: #### [id number] #### [facility] (DEFAULT) [address] [place] [address] 13626DC RBCNone SeenPremier Health Miami Valley Hospital HospitalComment on above: Order Comment: Urinalysis Microscopic order added on by [employer] Expert Rules system.Performed By: #### [id number] #### [facility] (DEFAULT) [address] [place] [address] 01202KL Squam EpiFewNoToledo Hospital HospitalComment on above: Order Comment: Urinalysis Microscopic order added on by [employer] Expert Rules system.Performed By: #### [id number] #### [facility] (DEFAULT) [address] [place] [address] 32341MS WBCNone SeenPremier Health Miami Valley Hospital HospitalComment on above: Order Comment: Urinalysis Microscopic order added on by [employer] Expert Rules system.Performed By: #### [id number] #### [facility] (DEFAULT) [address] [place] [address] 63397UC w Culture if Ind Standardon 17-37-4547Ohygnpjnng UA NormalMercy Health St. [facility] HospitalComment on above:Performed By: #### [id number] #### [facility] (DEFAULT) [address] [place] [address] 13029Ukagc (U)Dark YellowNoCleveland Clinic Fairview HospitalComment on above:Performed By: #### [id number] #### [facility] (DEFAULT) [address] [place] [address] 07832Jkvijrj?Not IndicatedInvalid Interpretation [facility] HospitalComment on above:Result Comment: Result created by rule GL_MAGR_ADD_UA_CULTPerformed By: #### [id number] #### [facility] (DEFAULT) [address] [place] [address] 28899Bdyykkc (U) [Mass/Vol]NegativePremier Health Miami Valley Hospital Hospital Comment on above:Performed By: #### [id number] #### [facility] (DEFAULT) [address] [place] [address] 10847Nuyuewa Ql (U)TRACENormalMagruder HospitalComment on above:Performed By: #### [id number] #### [facility] (DEFAULT) [address] [place] [address] 59194Cqscl?IndicatedInvalid Interpretation CodeNygruder HospitalComment on above:Result Comment: Result created by rule GL_MAGR_ADD_UA_MICROPerformed By: #### [id number] #### [facility] (DEFAULT) [address] [place] [address] 38097QW BilirubinMODERATEAbnormalNygrelyria memorial hospital HospitalComment on above:Performed By: #### [id number] #### [facility] (DEFAULT) [address] [place] [address] 89585AB BloodNegativeNormalNEGATIVEMagrelyria memorial hospital HospitalComment on above:Performed By: #### [id number] #### [facility] (DEFAULT) [address] [place] [address] 14431LV ClaritySL CLOUDYAbnormalCLEARMagrelyria memorial hospital HospitalComment on above:Performed By: #### [id number] #### [facility] (DEFAULT) [address] [place] [address] 62580QM Leuk EstNegativeNormalNEGATIVEMercy Health St. [facility] HospitalComment on above:Performed By: #### [id number] #### [facility] (DEFAULT) [address] [place] [address] 59064AL NitriteNegativeNormalNEGATIVENygrelyria memorial hospital HospitalComment on above:Performed By: #### [id number] #### [facility] (DEFAULT) [address] [place] [address] 49331EH pH6.6Gksjhc2-6Zhvbaknf HospitalComment on above: Performed By: #### [id number] #### [facility] (DEFAULT) [address] [place] [address] 25485ZH Ullvwpl44CdnjufyvTYBMMRBJPdqcgeqx HospitalComment on above:Performed By: #### [id number] #### [facility] (DEFAULT) [address] [place] [address] 00218PW Spec Grav>=1.207Tbqlrs6.001-1.035[facility] Hospital Comment on above:Performed By: #### [id number] #### [facility] (DEFAULT) [address] [place] [address] 92690SM Urobilinogen1.0 mg/dLNormal0.2-1.0[facility] Comment on above:Performed By: #### [id number] #### [facility] (DEFAULT) [address] [place] [address] 36659Ppjxr SourceClean CatchChillicothe VA Medical CenterComment on above:Performed By: #### [id number] #### [facility] (DEFAULT) [address] [place] [address] 02278Vpn [facility].on 63-07-4468Jpt Virtua MarltonComment on above:Performed By: #### [id number] #### [facility] (DEFAULT) [address] [place] [address] 78671Mbrqyp Summaryon 17-44-2985Tvopwc SummaryHTMLBase 64 YiibctffBUt7rSp+PGhlYWQ+EF9MUHBhK24rjOGiaU2eO7DWYTdXJstrJZCWDGmLZjRvebCpQP0erGJn ZXJu [file] [facility] (more content not included)...[facility] Medical CenterBasophils Auto (Bld) [#/Vol]on 22-02-3602Uycefehsn (Bld) [#/Vol]0.0 x100.0-0.2FSalem Regional Medical CenterBasophils/100 WBC Auto (Bld)on 30-49-3315Wczvctiww/100 WBC (Bld) 0.3 %0.2-2.0[facility] HospitalEosinophils/100 WBC Auto (Bld)on 47-49-5503Nejktjklywd/100 WBC (Bld)2.7 %0.9-4.0[facility] Erythrocyte distribution width Auto (RBC) [Ratio]on 61-40-9475Tkuazgvweau distribution width (RBC) [Ratio]14.1 %11.5-15.0[facility] Hematocrit Auto (Bld) [Volume fraction]on 12-35-0146Dpqtdwirmn (Bld) [Volume fraction]41.4 %High33.7-40.4FSalem Regional Medical CenterHemoglobin [Mass/volume] in Bloodon 68-25-4914Tmdmsnszra (Bld) [Mass/Vol]14.0 g/dL11.3-15.9 [facility] HospitalIron binding capacity [Mass/volume] in Serum or Plasmaon 63-88-4743Arhw binding capacity [Mass/Vol]405 mcg/tXYmih113-201 [facility] HospitalIron saturation [Mass Fraction] in Serum or Plasmaon 44-60-0734Qddc saturation [Mass fraction]12 %Zxk37-12KyebtobqgKeenan Private HospitalLaboratory - Chemistry and Chemistry - challengeon 22-62-2637Uroc [Mass/Vol]48.0 ug/dL28.0-170.0[facility] HospitalTransferrin [Mass/Vol]289.2 mg/dL192.0-382.0[facility] HospitalLeukocytes [#/volume] corrected for nucleated erythrocytes in Blood by Automated counon 66-93-5361EJZ corrected for nucl RBC Auto (Bld) [#/Vol]6.4 x103.5-10.5FSalem Regional Medical CenterLymphocytes Auto (Bld) [#/Vol]on 63-53-8859Ltvdcveudsj (Bld) [#/Vol]2.2 x101.3-2.9[facility] HospitalLymphocytes/100 WBC Auto (Bld)on 42-59-6469Ggesqvtuqwq/100 WBC (Bld)34 %14-48[facility] HospitalMCH Auto (RBC) [Entitic mass]on 60-91-9024KSQ (RBC) [Entitic mass] 29 fi08-51LtxgrixbfKeenan Private HospitalMCHC Auto (RBC) [Mass/Vol]on 91-32-5296IYDD (RBC) [Mass/Vol]34 g/xY86-91OwgjzhvcqKeenan Private HospitalMCV Auto (RBC) [Entitic vol]on 49-54-8232FYA (RBC) [Entitic vol]87 qM20-490ThuquewxjKeenan Private HospitalMonocytes Auto (Bld) [#/Vol]on 78-32-5142Xtrnoxpmg (Bld) [#/Vol]0.4 x100.0-0.8[facility] HospitalMonocytes/100 WBC Auto (Bld)on 79-43-9802Fisecnuao/100 WBC (Bld)6 %1-12Keenan Private HospitalNeutrophils Auto (Bld) [#/Vol]on 34-96-0566Tqjvzlheboz (Bld) [#/Vol]3.7 x101.5-9.2FSalem Regional Medical CenterNeutrophils/100 WBC Auto (Bld)on 89-11-2617Ukxfipcoziq/100 WBC (Bld)57 %44-88Keenan Private HospitalNo Panel Informationon 49-57-8153Ydt Manual DifferentialAuto AutoKeenan Private HospitalEosinophils # (Auto)0.2 x100.0-0.4FSalem Regional Medical CenterPlatelet mean volume Auto (Bld) [Entitic vol]on 96-15-2591Szcgwbhp mean volume (Bld) [Entitic vol]6.7 fL6.3-10.2FSalem Regional Medical Center Platelets Auto (Bld) [#/Vol]on 25-77-8342Cdimvvmqz (Bld) [#/Vol]179 k34770-481 [facility] HospitalRBC Auto (Bld) [#/Vol]on 33-10-9326FUZ (Bld) [#/Vol]4.76 x103.70-5.30[facility] Private HospitalFollitropin [Units/volume] in Serum or PlasmaOrdered By: LEOBARDO BARROSO on 06-23-2022 Follitropin Qn6.2 m[IU]/mLKeenan Private HospitalComment on above: FEMALE NORMALS (PREMENOPAUSE) MID-FOLLICULAR PHASE: 3.9-8.8 mIU/mL MID-CYCLE PEAK: 4.5-22.5 mIU/mL MID-LUTEAL PHASE: 1.8-5.1 mIU/mLFEMALE NORMALS (POSTMENOPAUSE): 16.7-113.6 mIU/mLMALE NORMALS: 1.3-19.3 mIU/mLProlactin [Mass/volume] in Serum or PlasmaOrdered By: LEOBARDO BARROSO on 06-23-2022 Prolactin [Mass/Vol]7.58 ng/mL3.34-26.72[facility] HospitalCT biopsyOrdered By: Amanda Ford on 75-59-0663Aqzkzxmplkq [Mass/Vol]393 mg/cV685-249RsitxfxreKeenan Private HospitalIron [Mass/volume] in Serum or PlasmaOrdered By: Amanda Ford on 81-86-9561Pehu [Mass/Vol]34 ug/nO73-342 [facility] HospitalIron binding capacity [Mass/volume] in Serum or PlasmaOrdered By: Amanda Ford on 69-15-6738Zgmt binding capacity [Mass/Vol]550 ug/kJ560-397FafanksksKeenan Private HospitalIron saturation [Mass Fraction] in Serum or PlasmaOrdered By: Amanda Ford on 26-74-7885Lagz saturation [Mass fraction]6.2 %20-50[facility] Anisocytosis LM Ql (Bld)Ordered By: Farhad Gallego on 49-23-2154Eprokiaukidb Ql (Bld)MarkedKeenan Private HospitalBasophils Auto (Bld) [#/Vol]Ordered By: Farhad Gallego on 54-72-1585Nhwcebsll (Bld) [#/Vol]N/[facility] CenterBasophils/100 WBC Auto (Bld)Ordered By: Farhad Gallego on 06-11-2022 Basophils/100 WBC (Bld)N/[facility] CenterBasophils/100 WBC Manual cnt (Bld)Ordered By: Farhad Gallego on 92-11-5996Gaonhhsls/100 WBC (Bld)1 % 0-2FSalem Regional Medical CenterEosinophils Auto (Bld) [#/Vol]Ordered By: Farhad Gallego on 27-79-1943Fygndjixstk (Bld) [#/Vol]N/[facility] CenterEosinophils/100 WBC Auto (Bld)Ordered By: Farhad Lashonda on 06-11-2022 Eosinophils/100 WBC (Bld)N/[facility] CenterEosinophils/100 WBC Manual cnt (Bld)Ordered By: Farhad Lashonda on 39-66-2979Dxkjdqhxwlj/100 WBC (Bld) 7 %1-3FSalem Regional Medical CenterErythrocyte distribution width Auto (RBC) [Ratio]Ordered By: Farhad Lashonda on 45-53-3005Eqffkutzwpo distribution width (RBC) [Ratio]26.1 %11.9-15.3FSalem Regional Medical CenterHematocrit Auto (Bld) [Volume fraction]Ordered By: Farhad Lashonda on 42-95-4229Rybcsnirtv (Bld) [Volume fraction]25.7 %34.0-46.4FSalem Regional Medical CenterHemoglobin [Mass/volume] in BloodOrdered By: Farhad Lashonda on 42-44-3968Jorwrlxuon (Bld) [Mass/Vol]8.0 g/dL11.8-15.4FSalem Regional Medical CenterHypochromia LM Ql (Bld)Ordered By: Farhad Lashonda on 57-57-7920Pwrbljetigy Ql (Bld)[facility] HospitalLeukocytes [#/volume] corrected for nucleated erythrocytes in Blood by Automated counOrdered By: Farhad Lashonda on 21-14-4427YWY corrected for nucl RBC Auto (Bld) [#/Vol]5.0 10*3/uL3.8-11.6FSalem Regional Medical CenterLymphocytes Auto (Bld) [#/Vol]Ordered By: Farhad Lashonda on 75-87-5957Wcdeetcnged (Bld) [#/Vol]N/[facility] Lymphocytes/100 WBC Auto (Bld)Ordered By: Farhad Lashonda on 06-11-2022 Lymphocytes/100 WBC (Bld)N/[facility] CenterLymphocytes/100 WBC Manual cnt (Bld)Ordered By: Farhad Lashonda on 75-28-1125Zuejathiyhw/100 WBC (Bld) 56 %18-42Keenan Private HospitalMCH Auto (RBC) [Entitic mass]Ordered By: Farhad Lashonda on 03-54-3891NGB (RBC) [Entitic mass]21.1 pg24.7-34.3FSalem Regional Medical CenterMCHC Auto (RBC) [Mass/Vol]Ordered By: Farhad Lashonda on 19-67-7107ZKMJ (RBC) [Mass/Vol]31.2 g/dL32.0-35.0[facility] HospitalMCV Auto (RBC) [Entitic vol]Ordered By: Farhad Lashonda on 65-31-4794PXQ (RBC) [Entitic vol]67.6 tB30-996WrxzlgkjxKeenan Private HospitalMicrocytes LM Ql (Bld)Ordered By: Farhad Lashonda on 02-55-6006Pzqqetnjxh Ql (Bld)MarkedKeenan Private HospitalMonocytes Auto (Bld) [#/Vol]Ordered By: Fahrad Lashonda on 00-35-8514Jhlvemiez (Bld) [#/Vol]N/[facility] Monocytes/100 WBC Auto (Bld)Ordered By: Farhad Lashonda on 51-57-9240Mycvvihdm/100 WBC (Bld)N/[facility] CenterMonocytes/100 WBC Manual cnt (Bld) Ordered By: Farhad Lashonda on 51-25-3783Encmduvkn/100 WBC (Bld)5 %2-11[facility] HospitalNeutrophils Auto (Bld) [#/Vol]Ordered By: Farhad Lashonda on 69-50-9536Nococpnxpki (Bld) [#/Vol]N/[facility] Neutrophils/100 WBC Auto (Bld)Ordered By: Farhad Lashonda on 06-11-2022 Neutrophils/100 WBC (Bld)N/[facility] CenterNucleated erythrocytes [Presence] in Blood by Automated countOrdered By: Farhad Lashonda on 66-25-8465Bpxfnqyuc RBC Auto Ql (Bld)N/[facility] Platelet adequacy [Presence] in Blood by Light microscopyOrdered By: Farhad Lashonda on 17-60-3608Qskxwalqk LM Ql (Bld)NormalNoBlanchard Valley Health SystemPlatelet mean volume Auto (Bld) [Entitic vol]Ordered By: Farhad Lashonda on 12-19-8479Aaqduwby mean volume (Bld) [Entitic vol]8.2 fL6.3-10.7FSalem Regional Medical CenterPlatelet morphology finding [Identifier] in BloodOrdered By: FarhadMerchant on 16-27-4135Jijkxkot morphology finding Nom (Bld)NormalNoTuscarawas HospitalPlatelets Auto (Bld) [#/Vol]Ordered By: Farhad Lashonda on 47-40-8367Lbrplvmro (Bld) [#/Vol]165 10*3/gS537-121RpqmviwriKeenan Private HospitalPolychromasia [Presence] in Blood by Light microscopyOrdered By: Farhad Gallego on 37-91-0713Snoqewpehvhqr LM Ql (Bld)[facility] HospitalRB Auto (Bld) [#/Vol]Ordered By: Farhad Gallego on 97-54-7917CHG (Bld) [#/Vol]3.80 10*6/uL3.60-5.00[facility] HospitalRB morphologyOrdered By: Farhad Gallego on 06-84-5338AOR morphology finding Nom (Bld) N/AFWestern Reserve Hospitalegmented neutrophils/100 WBC Manual cnt (Bld)Ordered By: Farhad Gallego on 68-92-1916Trgheycxf neutrophils/100 WBC (Bld)32 %50-70[facility] HospitalWBC Auto (Bld) [#/Vol]Ordered By: Farhad Gallego on 94-59-0296BIG (Bld) [#/Vol]5.0 10*3/uL3.8-11.6FSalem Regional Medical CenterActivated partial thromboplastin time (aPTT) in platelet poor plasma by coagulation aOrdered By: Jean Jett on 67-62-0736hQHP Coag (PPP) [Time]29.8 s25.1-36.5FSalem Regional Medical CenterAnisocytosis LM Ql (Bld) Ordered By: Jean Jett on 94-38-9048Mebhedhlqzze Ql (Bld)[facility] HospitalBasophils Auto (Bld) [#/Vol]Ordered By: Jean Jett on 64-44-6885Gkglyjqib (Bld) [#/Vol]0.1 10*3/uL0.0-0.2FSalem Regional Medical CenterBasophils/100 WBC Auto (Bld)Ordered By: Jean Jett on 06-10-2022 Basophils/100 WBC (Bld)1.8 %.[facility] HospitalBilirubin Test strip Ql (U)Ordered By: Jean Jett on 69-01-5882Kzpqdqunf Ql (U)Negative NegativeKeenan Private HospitalCT biopsyOrdered By: Jean Jett on 25-33-1422Zbpdyvqxraf [Mass/Vol]380 mg/nW343-147EwyvrkgjlKeenan Private HospitalCalcium [Mass/volume] in Serum or PlasmaOrdered By: Jean Jett on 14-66-7883Ngjkmtg [Mass/Vol]8.6 mg/dL8.2-10.2FSalem Regional Medical Center Carbon dioxide, total [Moles/volume] in Serum or PlasmaOrdered By: Jean Jett on 96-46-2873WV4 [Moles/Vol]23.3 mmol/L22.0-30.0[facility] HospitalChloride [Moles/volume] in Serum or PlasmaOrdered By: Jean Jett on 36-46-2014Ucvwcoii [Moles/Vol]106 mmol/Z07-883TzqfndnwcKeenan Private Hospital Color Auto (U)Ordered By: Jean Jett on 52-42-8276Hybhz (U)YellowYellow [facility] HospitalCreatine kinase [Enzymatic activity/volume] in Serum or PlasmaOrdered By: Jean Jett on 62-30-9442JT [Catalytic activity/Vol] 100 U/H18-462XsqrosbweKeenan Private HospitalCreatinine and Glomerular filtration rate.predicted panel (S/P/Bld)Ordered By: Jean Jett on 06-10-2022 Creatinine [Mass/Vol]0.71 mg/dL0.44-1.03[facility] Eosinophils Auto (Bld) [#/Vol]Ordered By: Jean Jett on 47-16-0877Fpakkohdftd (Bld) [#/Vol]0.3 10*3/uL0.0-0.45[facility] HospitalEosinophils/100 WBC Auto (Bld)Ordered By: Jean Jett on 08-25-9690Sqifkcxixsf/100 WBC (Bld) 5.0 %.[facility] HospitalErythrocyte distribution width Auto (RBC) [Ratio]Ordered By: Jean Jett on 31-42-9517Qthebwqkkym distribution width (RBC) [Ratio]24.6 %11.9-15.3FSalem Regional Medical CenterEstimated glomerular filtration rate (GFR) non- AmericanOrdered By: Jean Jett on 02-03-5245RMQ/1.73 sq M.predicted among non-blacks MDRD (S/P/Bld) [Vol rate/Area]> 60 mL/MinKeenan Private HospitalFecal occult blood detection by immunochemistryOrdered By: Jean Jett on 06-10-2022 Hemoglobin.gastrointestinal Ql (Stl)[facility] HospitalGlucose [Mass/volume] in Serum or PlasmaOrdered By: Jean Jett on 48-36-1150Lwxlpvf [Mass/Vol]94 mg/iM42-859HsvidtgqmKeenan Private HospitalComment on above:ADA recommended reference rangeRandom Glucose Reference Range is dependent on time and content of last meal. Glucose of more than 200 mg/dL in a nonstressed, ambulatory subject supports the diagnosisof Diabetes Mellitus.HCG ( test) IA.rapid Ql (U)Ordered By: Jaen Jett on 85-42-2027MJP ( test) Ql (U)NegativeKeenan Private HospitalHematocrit Auto (Bld) [Volume fraction]Ordered By: Jean Jett on 35-91-1027Elxcdvwthb (Bld) [Volume fraction]23.8 %34.0-46.4FSalem Regional Medical CenterHemoglobin [Mass/volume] in BloodOrdered By: Jean Jett on 64-62-3670Szqxaweiwp (Bld) [Mass/Vol]7.3 g/dL11.8-15.4FSalem Regional Medical CenterHypochromia LM Ql (Bld)Ordered By: Jean Jett on 28-38-8050Gwzwqjxcudu Ql (Bld)MarkedKeenan Private HospitalIron [Mass/volume] in Serum or PlasmaOrdered By: Jean Jett on 84-53-1745Rlff [Mass/Vol]25 ug/iQ74-937BdgruyetbKeenan Private HospitalIron binding capacity [Mass/volume] in Serum or PlasmaOrdered By: Jean Jett on 46-67-1511Qfve binding capacity [Mass/Vol]532 ug/lQ181-183PloctkbdnKeenan Private HospitalIron saturation [Mass Fraction] in Serum or PlasmaOrdered By: Jean Jett on 14-94-3989Ypkt saturation [Mass fraction]4.7 %20-50[facility] HospitalKetones Auto test strip (U) [Mass/Vol]Ordered By: Jean Jett on 77-37-4480Rqovfwp (U) [Mass/Vol]NegativeNegativeKeenan Private HospitalLaboratory - Chemistry and Chemistry - challengeOrdered By: Jean Jett on 65-67-5431Uevbftamk [Mass/Vol]1.9 mg/dL1.6-2.6FSalem Regional Medical CenterNatriuretic peptide B (Bld) [Mass/Vol]23.0 pg/mL5-100[facility] HospitalLaboratory - CoagulationOrdered By: Jean Jett on 24-65-9313QB Coag (PPP) [Time]12.9 s9.0-12.9[facility] Leukocytes [#/volume] corrected for nucleated erythrocytes in Blood by Automated counOrdered By: Jean Jett on 50-68-6715PZY corrected for nucl RBC Auto (Bld) [#/Vol]5.3 10*3/uL3.8-11.6FSalem Regional Medical CenterLymphocytes Auto (Bld) [#/Vol]Ordered By: Jean Jett on 71-00-2650Onkirxesyhs (Bld) [#/Vol]2.2 10*3/uL1.00-4.8[facility] HospitalLymphocytes/100 WBC Auto (Bld) Ordered By: Jean Jett on 10-48-1146Tdrfacblzap/100 WBC (Bld)41.3 %.[facility] Private HospitalMCH Auto (RBC) [Entitic mass]Ordered By: Jean Jett on 92-01-9941RRZ (RBC) [Entitic mass]19.7 pg24.7-34.3FSalem Regional Medical CenterMCHC Auto (RBC) [Mass/Vol]Ordered By: Jean Jett on 74-67-4034HQNR (RBC) [Mass/Vol]30.6 g/dL32.0-35.0[facility] HospitalMCV Auto (RBC) [Entitic vol]Ordered By: Jean Jett on 05-00-7034LOL (RBC) [Entitic vol]64.5 hH10-130WitvflwehKeenan Private HospitalMicrocytes LM Ql (Bld)Ordered By: Jean Jett on 39-38-1307Sgrhrgriqc Ql (Bld)MarkedKeenan Private HospitalMonocyte distribution width [Entitic volume] in Blood by AutomatedOrdered By: Jean Jett on 41-38-3703Mqosiosz distribution width Auto (Bld) [Entitic vol]17.54 %0.00-20.00[facility] HospitalMonocytes Auto (Bld) [#/Vol]Ordered By: Jean Jett on 21-20-6219Mzcwqysky (Bld) [#/Vol]0.4 10*3/uL 0.0-0.8[facility] HospitalMonocytes/100 WBC Auto (Bld)Ordered By: Jean Jett on 78-10-1955Qgwpbdald/100 WBC (Bld)6.8 %.[facility] HospitalNeutrophils Auto (Bld) [#/Vol]Ordered By: Jean Jett on 85-85-9017Vvqlajxhtaj (Bld) [#/Vol]2.4 10*3/uL1.8-7.7FSalem Regional Medical CenterNeutrophils/100 WBC Auto (Bld)Ordered By: Jean Jett on 06-10-2022 Neutrophils/100 WBC (Bld)45.1 %.[facility] HospitalNitrite Test strip Ql (U)Ordered By: Jean Jett on 46-26-1497Irodtsf Ql (U)NegativeNegative [facility] HospitalNo Panel InformationOrdered By: Jean Jett on 08-66-5238Ycxkwibfm GFR ()> 60 mL/MinKeenan Private HospitalComment on above:GFR estimated reference range: According to KDOQI guidelines, <60 ml/min/1.73m2 is sufficient todiagnose a patient with chronic kidney disease.Pharmacy Creatinine Clearance (Eboc505.49[facility] HospitalNucleated erythrocytes [Presence] in Blood by Automated count Ordered By: Jean Jett on 16-48-4647Vclvwfkah RBC Auto Ql (Bld)0.1 /100{WBC} 0-0.5FSalem Regional Medical CenterOvalocyte detectionOrdered By: Jean Jett on 21-60-9514Nmltfbinkq LM Ql (Bld)SlightKeenan Private Hospital Platelet adequacy [Presence] in Blood by Light microscopyOrdered By: Jean Jett on 08-49-4547Dlvsbinny LM Ql (Bld)NormalNormTrinity Health System East CampusPlatelet mean volume Auto (Bld) [Entitic vol]Ordered By: Jean Jett on 58-74-6863Ofyllcbx mean volume (Bld) [Entitic vol]8.3 fL6.3-10.7FSalem Regional Medical CenterPlatelet morphology finding [Identifier] in BloodOrdered By: Jean Jett on 78-50-1229Dwuigddy morphology finding Nom (Bld)NormalNormal [facility] HospitalPlatelet poor plasma international normalized ratio (INR) by coagulation assay (relatOrdered By: Jean Jett on 81-88-6162JRT Coag (PPP) [Relative time]1.1 {INR}[facility] Private HospitalComment on above:INR Therapeutic Range A) Pre- [...] Auto (Bld) [#/Vol]Ordered By: Jean Jett on 32-90-7594Iihvcvaoo (Bld) [#/Vol]202 10*3/zF009-830EqaysrjitKeenan Private HospitalPoikilocytosis [Presence] in Blood by Light microscopyOrdered By: Jean Jett on 61-09-4731Trtieuribkxnjw LM Ql (Bld)[facility] HospitalPolychromasia [Presence] in Blood by Light microscopyOrdered By: Jean Jett on 52-05-0834Yeazqaxvqcfmt LM Ql (Bld)[facility] HospitalPotassium [Moles/volume] in Serum or PlasmaOrdered By: Jean Jett on 40-88-8905Avnzhdock [Moles/Vol]4.1 mmol/L3.5-5.1FSalem Regional Medical CenterProtein Auto test strip (U) [Mass/Vol]Ordered By: Jean Jett on 40-91-5622Iseyxwc (U) [Mass/Vol]NegativeNegativeKeenan Private HospitalRBC Auto (Bld) [#/Vol]Ordered By: Jean Jett on 38-62-7740ICZ (Bld) [#/Vol]3.69 10*6/uL3.60-5.00[facility] morphology Ordered By: Jean Jett on 47-94-1411FKQ morphology finding Nom (Bld)N/A [facility] Centererum or plasma anion gap determinationOrdered By: Jean Jett on 23-60-7665Xwcwn gap [Moles/Vol]10.8 mmol/L6.0-15.0[facility] Centerodium [Moles/volume] in Serum or PlasmaOrdered By: Jean Jett on 15-76-2251Tjrayg [Moles/Vol]136 mmol/Y080-573NtdydmjzsCoshocton Regional Medical Centerpecific gravity Auto test strip (U) [Rel density]Ordered By: Jean Jett on 77-46-1954Jbcellfu gravity (U) [Rel density]1.0101.001-1.030 [facility] HospitalTarget cellsOrdered By: Jean Jett on 14-31-9718Eetkpt cells LM Ql (Bld)[facility] Teardrop cell detectionOrdered By: Jaen Jett on 13-44-2385Marmjwcmeg LM Ql (Bld)[facility] HospitalTroponin I.cardiac [Mass/volume] in Serum or Plasma by High sensitivity methodOrdered By: Jean Jett on 06-10-2022 Troponin I.cardiac High sensitivity method [Mass/Vol]< 3 pg/mL0-15[facility] HospitalUrea nitrogen [Mass/volume] in Serum or PlasmaOrdered By: Jean Jett on 56-72-1514Ngaw nitrogen [Mass/Vol]9 mg/dL9[facility] HospitalUrine clarity by refractometry automatedOrdered By: Jean Jett on 88-82-6733Nzdbreh Refractometry automated (U)ClearClearFSalem Regional Medical CenterUrine glucose measurement by automated test strip (mass/volume) Ordered By: Jean Jett on 47-88-3586Qoxdinu Auto test strip (U) [Mass/Vol] Normal mg/dLNoBlanchard Valley Health SystemUrine hemoglobin detection by automated test stripOrdered By: Jean Jett on 70-46-2482Ylchjfmoov Auto test strip Ql (U)NegativeNegWhite HospitalUrine leukocyte esterase detection by automated test stripOrdered By: Jean Jett on 06-10-2022 Leukocyte esterase Auto test strip Ql (U)NegativeNegWhite HospitalUrobilinogen Auto test strip (U) [Mass/Vol]Ordered By: Jean Jett on 68-06-2738Gqypcufrkbmt (U) [Mass/Vol]Normal mg/dLNoBlanchard Valley Health SystemWBC Auto (Bld) [#/Vol]Ordered By: Jean Jett on 66-18-0899WOE (Bld) [#/Vol]5.3 10*3/uL3.8-11.6FSalem Regional Medical Center pH Auto test strip (U)Ordered By: Jean Jett on 52-01-9929jE (U)5.5 [pH] 5.0-9.0[facility] HospitalAlkaline phosphatase [Enzymatic activity/volume] in Serum or PlasmaOrdered By: Julieta Jefferson on 37-62-5446MCY [Catalytic activity/Vol]39 U/B12-37BpwfwywneKeenan Private HospitalAnisocytosis LM Ql (Bld)Ordered By: Julieta Jefferson on 36-80-6554Rosjmnvxthqo Ql (Bld)Marked [facility] HospitalAspartate aminotransferase [Enzymatic activity/volume] in Serum or PlasmaOrdered By: Julieta Jefferson on 99-79-9768FLR [Catalytic activity/Vol]15 U/Z42-97CciudwfxpKeenan Private HospitalBasophils Auto (Bld) [#/Vol]Ordered By: Julieta Jefferson on 03-91-9685Cjiqslaer (Bld) [#/Vol] 0.1 10*3/uL0.0-0.2FSalem Regional Medical CenterBasophils/100 WBC Auto (Bld) Ordered By: Julieta Jefferson on 34-61-8951Okriugxao/100 WBC (Bld)1.4 %.[facility] HospitalBody fluid albumin measurement (mass/volume)Ordered By: Julieta Jefferson on 05-09-5195Phincsj (Body fld) [Mass/Vol]4.1 g/dL3.2-5.5FSalem Regional Medical CenterCalcium [Mass/volume] in Serum or PlasmaOrdered By: Julieta Jefferson on 01-24-2081Jilwjbj [Mass/Vol]9.0 mg/dL8.2-10.2FSalem Regional Medical CenterCarbon dioxide, total [Moles/volume] in Serum or PlasmaOrdered By: Julieta Jefferson on 52-66-4511PK3 [Moles/Vol]23.3 mmol/L22.0-30.0[facility] HospitalCholesterol [Mass/volume] in Serum or PlasmaOrdered By: Julieta Jefferson on 26-21-9830Kaitmnnuruw [Mass/Vol]137 mg/sV520-913AgbbahyjqKeenan Private HospitalComment on above:Chol less than 200 mg/dl low riskChol 201-239 mg/dl borderline riskChol 240 mg/dl and greater high riskCholesterol in LDL Calc [Mass/Vol]Ordered By: Julieta Jefferson on 43-27-3075Toylovrpybu in LDL [Mass/Vol]72 mg/dL0-100[facility] Private HospitalComment on above:LDL ATP III CLASSIFICATIONLDL less than 100 mg/dL OptimalLDL 100-129 mg/dL Near or above kigbinoCZC006-729 mg/dL Borderline highLDL 160-189 mg/dL HighLDL greater than 189 mg/dL Very highCholesterol in VLDL Calc [Mass/Vol]Ordered By: Julieta Jefferson on 35-20-1765Zqlgelsfksz in VLDL [Mass/Vol]9 mg/dLKeenan Private HospitalCreatinine and Glomerular filtration rate.predicted panel (S/P/Bld)Ordered By: Julieta Jefferson on 10-09-2195Ssswjnoeze [Mass/Vol]0.59 mg/dL0.44-1.03[facility] HospitalEosinophils Auto (Bld) [#/Vol]Ordered By: Julieta Jefferson on 97-85-1308Ysxjheaosix (Bld) [#/Vol]0.3 10*3/uL0.0-0.45[facility] HospitalEosinophils/100 WBC Auto (Bld)Ordered By: Julieta Jefferson on 06-09-2022 Eosinophils/100 WBC (Bld)6.8 %.[facility] HospitalErythrocyte distribution width Auto (RBC) [Ratio]Ordered By: Julieta Jefferson on 06-09-2022 Erythrocyte distribution width (RBC) [Ratio]24.5 %11.9-15.3FSalem Regional Medical CenterEstimated glomerular filtration rate (GFR) non- Ordered By: Julieta Jefferson on 99-38-9100HXA/1.73 sq M.predicted among non-blacks MDRD (S/P/Bld) [Vol rate/Area]> 60 mL/MinKeenan Private Hospital Globulin Calc (S) [Mass/Vol]Ordered By: Julieta Jefferson on 07-11-4825Izvpivdf (S) [Mass/Vol]2.3 g/dLKeenan Private HospitalGlucose mean value [Mass/volume] in Blood Estimated from glycated hemoglobinOrdered By: Julieta Jefferson on 54-99-0690Lahdnre glucose Estimated from glycated hemoglobin (Bld) [Mass/Vol]97 mg/dLKeenan Private HospitalHematocrit Auto (Bld) [Volume fraction]Ordered By: Julieta Jefferson on 28-07-8103Smukrgcerg (Bld) [Volume fraction]26.0 %34.0-46.4FSalem Regional Medical CenterHemoglobin A1c percentageOrdered By: Julieta Jefferson on 64-78-3378TcV2v (Bld) [Mass fraction]5.0 % 4.3-5.6FSalem Regional Medical CenterComment on above:Increased risk for diabetes: 5.7 - 6.4diabetes: >6.4glycemic control for adults with diabetes: &l t;7.0Hemoglobin [Mass/volume] in BloodOrdered By: Julieta Jefferson on 06-09-2022 Hemoglobin (Bld) [Mass/Vol]7.8 g/dL11.8-15.4FSalem Regional Medical Center Hypochromia LM Ql (Bld)Ordered By: Julieta Jefferson on 87-02-0086Roeujjouyso Ql (Bld) ModerateKeenan Private HospitalLeukocytes [#/volume] corrected for nucleated erythrocytes in Blood by Automated counOrdered By: Julieta Jefferson on 69-77-3550SMY corrected for nucl RBC Auto (Bld) [#/Vol]4.6 10*3/uL3.8-11.6 [facility] HospitalLymphocytes Auto (Bld) [#/Vol]Ordered By: Julieta Jefferson on 72-73-2956Xmzxukfpnks (Bld) [#/Vol]2.0 10*3/uL1.00-4.8[facility] HospitalLymphocytes/100 WBC Auto (Bld)Ordered By: Julieta Jefferson on 56-65-2365Gmzzgeuzqzt/100 WBC (Bld)44.2 %.[facility] Private HospitalMCH Auto (RBC) [Entitic mass]Ordered By: Julieta Jefferson on 42-35-0360GQU (RBC) [Entitic mass]19.7 pg24.7-34.3FSalem Regional Medical CenterMCHC Auto (RBC) [Mass/Vol]Ordered By: Julieta Jefferson on 82-18-2432YQTA (RBC) [Mass/Vol]30.2 g/dL 32.0-35.0[facility] HospitalMCV Auto (RBC) [Entitic vol]Ordered By: Julieta Jefferson on 13-34-4868BMU (RBC) [Entitic vol]65.3 wF04-892BseyzmmrxKeenan Private HospitalMicrocytes LM Ql (Bld)Ordered By: Julieta Jefferson on 83-14-7491Cliilcfrxd Ql (Bld)MarkedKeenan Private HospitalMonocytes Auto (Bld) [#/Vol]Ordered By: Julieta Jefferson on 21-27-0530Iwozjtywn (Bld) [#/Vol] 0.4 10*3/uL0.0-0.8[facility] HospitalMonocytes/100 WBC Auto (Bld) Ordered By: Julieta Jefferson on 76-07-3205Qgvoufuyb/100 WBC (Bld)8.9 %.[facility] HospitalNeutrophils Auto (Bld) [#/Vol]Ordered By: Julieta Jefferson on 36-33-0784Qkjsejvrxjb (Bld) [#/Vol]1.8 10*3/uL1.8-7.7FSalem Regional Medical CenterNeutrophils/100 WBC Auto (Bld)Ordered By: Julieta Jefferson on 06-09-2022 Neutrophils/100 WBC (Bld)38.7 %.[facility] HospitalNo Panel InformationOrdered By: Julieta Jefferson on 47-59-2403Wyixocspt GFR () > 60 mL/MinKeenan Private HospitalComment on above:GFR estimated reference range: According to KDOQI guidelines, <60 ml/min/1.73m2 is sufficient todiagnose a patient with chronic kidney disease.Pharmacy Creatinine Clearance (ChemN/[facility] CenterNucleated erythrocytes [Presence] in Blood by Automated countOrdered By: Julieta Jefferson on 17-84-9652Ygrhfyjsc RBC Auto Ql (Bld)0.1 /100{WBC}0-0.5FSalem Regional Medical CenterPlatelet adequacy [Presence] in Blood by Light microscopyOrdered By: Julieta Jefferson on 06-09-2022 Platelets LM Ql (Bld)NormalMarietta Memorial HospitalPlatelet mean volume Auto (Bld) [Entitic vol]Ordered By: Julieta Jefferson on 54-48-6278Rzjcjwde mean volume (Bld) [Entitic vol]8.2 fL6.3-10.7FSalem Regional Medical Center Platelet morphology finding [Identifier] in BloodOrdered By: Julieta Jefferson on 65-72-2255Ykbbihyb morphology finding Nom (Bld)NormalNoBlanchard Valley Health SystemPlatelets Auto (Bld) [#/Vol]Ordered By: Julieta Jefferson on 06-09-2022 Platelets (Bld) [#/Vol]200 10*3/zD675-765UnrtviypmKeenan Private Hospital Poikilocytosis [Presence] in Blood by Light microscopyOrdered By: Julieta Jefferson on 01-78-1066Mubduwbepflpjy LM Ql (Bld)[facility] Polychromasia [Presence] in Blood by Light microscopyOrdered By: Julieta Jefferson on 26-87-9640Nsnyuhgohsbfp LM Ql (Bld)ModerateKeenan Private Hospital Protein [Mass/volume] in Serum or PlasmaOrdered By: Julieta Jefferson on 06-09-2022 Protein [Mass/Vol]6.4 g/dL6.1-7.9[facility] Private HospitalRB Auto (Bld) [#/Vol]Ordered By: Julieta Jefferson on 33-14-6338DLL (Bld) [#/Vol]3.97 10*6/uL 3.60-5.00Ke[facility]an Private HospitalRB morphologyOrdered By: Julieta Jefferson on 23-86-0146QJI morphology finding Nom (Bld)N/AFWestern Reserve Hospitalchistocytes [Presence] in Blood by Light microscopyOrdered By: Julieta Jefferson on 63-64-8489Ogcumbhcmdxk LM Ql (Bld)[facility] Hospitalerum or plasma alanine aminotransferase measurement without P-5'-P (enzymatic activiOrdered By: Julieta Jefferson on 12-24-7256NUA No additional P-5'-P [Catalytic activity/Vol]14 U/W38-65MhtmkwceoCoshocton Regional Medical Centererum or plasma albumin/globulin mass ratioOrdered By: Julieta Jefferson on 06-09-2022 Albumin/Globulin [Mass ratio]1.8 {ratio}[facility] Centererum or plasma anion gap determinationOrdered By: Julieta Jefferson on 39-60-3650Ejhax gap [Moles/Vol]11.5 mmol/L6.0-15.0[facility] Centererum or plasma calcitriol measurement (mass/volume)Ordered By: Julieta Jefferson on ,25- dihydroxyvitamin D3 [Mass/Vol]60.5 pg/mL24.8-81.5FSalem Regional Medical CenterComment on above:Performed at: - Lab[address] [id number] Director: Jon Horton MD, Phone: [phone] or plasma chloride measurement (moles/volume)Ordered By: Julieta Jefferson on 62-33-2702Yzertsmb [Moles/Vol]106 mmol/U92-136UmscnshajKeenan Private Hospital Serum or plasma glucose measurement (mass/volume)Ordered By: Julieta Jefferson on 13-90-7531Wumxjtp [Mass/Vol]78 mg/pU34-303TwyzidjabKeenan Private Hospital Comment on above:ADA recommended reference rangeRandom Glucose Reference Range is dependent on time and content of last meal. Glucose of more than 200 mg/dL in a nonstressed, ambulatory subject supports the diagnosisof Diabetes Mellitus. Serum or plasma high density lipoprotein (HDL) cholesterol measurementOrdered By: Julieta Jefferson on 99-97-5274Qdvvdiwfaga in HDL [Mass/Vol]56 mg/kN94-18PhuoxffulKeenan Private HospitalComment on above:HDL CHOL ATP-III CLASSIFICATION Cardiovascular RiskHDL > or equal to 60 mg/dL LOWHDL < 40 mg/dL HIGHSerum or plasma potassium measurement (moles/volume)Ordered By: Julieta Jefferson on 06-09-2022 Potassium [Moles/Vol]3.8 mmol/L3.5-5.1FWestern Reserve Hospitalerum or plasma sodium measurement (moles/volume)Ordered By: Julieta Jefferson on 06-09-2022 Sodium [Moles/Vol]137 mmol/H949-425OlobfucxvCoshocton Regional Medical Centererum or plasma total bilirubin measurement (mass/volume)Ordered By: Julieta Jefferson on 07-13-8179Nqpykieac [Mass/Vol]0.3 mg/dL0.3-1.2FSalem Regional Medical Center Serum or plasma total cholesterol/high density lipoprotein (HDL) cholesterol mass ratOrdered By: Julieta Jefferson on 18-15-5595Eisvbzlmhvh.total/Cholesterol in HDL [Mass ratio]2.4 {ratio}<5.0[facility] DL <= 0.005 mIU/L QnOrdered By: Julieta Jefferson on 98-47-7985PQL Qn4.10 m[IU]/L0.45-5.33 [facility] HospitalTeardrop cell detectionOrdered By: Julieta Jefferson on 83-33-7705Gbpzurxmfo LM Ql (Bld)SlightKeenan Private Hospital Triglyceride [Mass/volume] in Serum or PlasmaOrdered By: Julieta Jefferson on 73-55-7194Yoeixeabtjgo [Mass/Vol]45 mg/vC11-448RzgvquhurKeenan Private Hospital Comment on above:TRIG ATP III CLASSIFICATIONTRIG less than 150 mg/dL NormalTRIG 150-199 mg/dL Borderline highTRIG 200-500 mg/dL High TRIG greater than 500 mg/dL Very highStandard traceable to the Center for Disease Conrtrol and Prevention (CDC) test method.Urea nitrogen [Mass/volume] in Serum or PlasmaOrdered By: Julieta Jefferson on 67-54-7011Tjzw nitrogen [Mass/Vol]6 mg/dL9-Keenan Private HospitalWBC Auto (Bld) [#/Vol]Ordered By: Julieta Li on 10-21-5965ESR (Bld) [#/Vol]4.6 10*3/uL3.8-11.6FSalem Regional Medical CenterUrine 10 SGon 81-83-1337Fqnnbfa DL <= 20 mg/L (U) [Mass/Vol]NegativeNortFeedlooks Other pH (U)7.0 [pH][employer] Other urine 10 SGNegativeSTYLIGHT Other Urine 10 SG1.020NoSTYLIGHT Other urine 10 SGlargeNoSTYLIGHT Other Urine Cultureon 47-83-7003Ucnqppdu identified Cx Nom (U)[facility] Other urine culture routineOrdered By: Amanda Ford on 11-89-3140Fuffsvic identified Cx Nom (U)2 DaysKeenan Private HospitalActivated partial thromboplastin time (aPTT) in platelet poor plasma by coagulation aOrdered By: Phu Hdz on 81-64-2301rXZT Coag (PPP) [Time] 30.4 s25.1-36.5FSalem Regional Medical CenterAutomated erythrocytes count in urine sediment (number/area)Ordered By: Jean Jett on 46-40-5431LSC Auto (Urine sed) [#/Area]Innumerable [HPF]0-4FSalem Regional Medical Center Automated leukocytes count in urine sediment (number/area)Ordered By: Jean Jett on 32-94-8166AXN Auto (Urine sed) [#/Area]3-4 [HPF]0-4FSalem Regional Medical CenterAutomated urine sediment calcium oxalate crystal count by microscopy (number/high powOrdered By: Jean Jett on 40-69-5026Auspxbc oxalate crystals LM.HPF (Urine sed) [#/Area]1+ [HPF][facility] Basophils Auto (Bld) [#/Vol]Ordered By: Jean Jett on 55-69-1569Iuwrpmwje (Bld) [#/Vol]0.0 10*3/uL0.0-0.2FSalem Regional Medical CenterBasophils/100 WBC Auto (Bld)Ordered By: Jean Jett on 26-18-3544Pdqsmabtn/100 WBC (Bld)0.5 % .[facility]an Private HospitalBilirubin Test strip Ql (U)Ordered By: Jean Jett on 75-72-6299Fxerfxnmj Ql (U)1+NegativeKeenan Private Hospital Casts typing in urine sediment by light microscopyOrdered By: Jean Jett on 83-12-0511Xiriv LM Nom (Urine sed)None seen [LPF]None SeenKeenan Private HospitalColor Auto (U)Ordered By: Jean Jett on 60-83-6868Sqvuj (U)Red YellowKeenan Private HospitalCreatinine and Glomerular filtration rate.predicted panel (S/P/Bld)Ordered By: Jean Jett on 42-17-4100Hgariniimb [Mass/Vol]0.68 mg/dL0.44-1.03Ke[facility]an Private HospitalEosinophils Auto (Bld) [#/Vol]Ordered By: Jean Jett on 96-06-5150Flmxfvsligg (Bld) [#/Vol]0.2 10*3/uL0.0-0.45Ke[facility]an Private HospitalEosinophils/100 WBC Auto (Bld) Ordered By: Jean Jett on 10-84-2359Fubbcewqxai/100 WBC (Bld)2.1 %.[facility] Private HospitalErythrocyte distribution width Auto (RBC) [Ratio]Ordered By: Jean Jett on 82-90-8231Orsdlskpvyd distribution width (RBC) [Ratio]14.3 % 11.9-15.3FSalem Regional Medical CenterEstimated glomerular filtration rate (GFR) non- AmericanOrdered By: Jean Jett on 92-84-3583VPX/1.73 sq M.predicted among non-blacks MDRD (S/P/Bld) [Vol rate/Area]> 60 mL/MinKeenan Private HospitalHCG ( test) IA.rapid Ql (U)Ordered By: Jean Jett on 86-16-0979OZM ( test) Ql (U)NegativeKeenan Private HospitalHematocrit Auto (Bld) [Volume fraction]Ordered By: Jean Jett on 94-21-3024Kihhcjycif (Bld) [Volume fraction]29.4 %34.0-46.4FSalem Regional Medical CenterHemoglobin [Mass/volume] in BloodOrdered By: Jean Jett on 54-88-3946Vxrzumiqsa (Bld) [Mass/Vol]9.9 g/dL11.8-15.4FSalem Regional Medical CenterKetones Auto test strip (U) [Mass/Vol]Ordered By: Jean Jett on 66-37-2269Amxjptg (U) [Mass/Vol]NegativeNegativeKeenan Private HospitalLaboratory - CoagulationOrdered By: Phu Hdz on 80-81-4556MP Coag (PPP) [Time]12.4 s9.0-12.9Ke[facility]an [facility] HospitalLaboratory - UrinalysisOrdered By: Jean Jett on 67-92-9493Zudfebw casts LM Ql (Urine sed) None seen [LPF]0-8Ke[facility] HospitalLeukocytes [#/volume] corrected for nucleated erythrocytes in Blood by Automated counOrdered By: Jean Jett on 45-42-3025AUP corrected for nucl RBC Auto (Bld) [#/Vol]8.5 10*3/uL3.8-11.6FSalem Regional Medical CenterLymphocytes Auto (Bld) [#/Vol] Ordered By: Jean Jett on 60-22-7477Qchdjpthnyh (Bld) [#/Vol]2.1 10*3/uL 1.00-4.8[facility] HospitalLymphocytes/100 WBC Auto (Bld)Ordered By: Jean Jett on 42-97-4123Wgzxfdcpkfi/100 WBC (Bld)25.2 %.[facility] OhioH Auto (RBC) [Entitic mass]Ordered By: Jean Jett on 20-44-5720GLI (RBC) [Entitic mass]28.8 pg24.7-34.3FSalem Regional Medical CenterMCHC Auto (RBC) [Mass/Vol]Ordered By: Jean Jett on 01-24-7213FFQR (RBC) [Mass/Vol]33.6 g/dL32.0-35.0Ke[facility]an Private HospitalMCV Auto (RBC) [Entitic vol]Ordered By: Jean Jett on 39-76-4967PTP (RBC) [Entitic vol]85.7 vM59-650YdqvtdilhKeenan Private HospitalMonocyte distribution width [Entitic volume] in Blood by AutomatedOrdered By: Jean Jett on 49-53-6874Gumynyhe distribution width Auto (Bld) [Entitic vol]14.20 %0.00-20.00[facility] HospitalMonocytes Auto (Bld) [#/Vol]Ordered By: Jean Jett on 04-10-2022 Monocytes (Bld) [#/Vol]0.5 10*3/uL0.0-0.8[facility] Monocytes/100 WBC Auto (Bld)Ordered By: Jean Jett on 60-18-0305Yqzilktpp/100 WBC (Bld)5.7 %.[facility] Private HospitalNeutrophils Auto (Bld) [#/Vol] Ordered By: Jean Jett on 04-74-1416Abvashwofxt (Bld) [#/Vol]5.6 10*3/uL 1.8-7.7FSalem Regional Medical CenterNeutrophils/100 WBC Auto (Bld)Ordered By: Jean Jett on 75-36-8026Ijcfqypqquv/100 WBC (Bld)66.5 %.[facility] HospitalNitrite Test strip Ql (U)Ordered By: Jean Jett on 04-10-2022 Nitrite Ql (U)PositiveNegativeKeenan Private HospitalNo Panel InformationOrdered By: Jean Jett on 51-32-7428Rvvetrawk GFR ()> 60 mL/MinKeenan Private HospitalComment on above:GFR estimated reference range: According to KDOQI guidelines, <60 ml/min/1.73m2 is sufficient todiagnose a patient with chronic kidney disease.Pharmacy Creatinine Clearance (Isqa838.39Keenan Private HospitalNucleated erythrocytes [Presence] in Blood by Automated countOrdered By: Jean Jett on 04-10-2022 Nucleated RBC Auto Ql (Bld)0.0 /100{WBC}0-0.5FSalem Regional Medical Center Platelet mean volume Auto (Bld) [Entitic vol]Ordered By: Jean Jett on 95-58-5524Rynbptgu mean volume (Bld) [Entitic vol]6.9 fL6.3-10.7FSalem Regional Medical CenterPlatelet poor plasma international normalized ratio (INR) by coagulation assay (relatOrdered By: Phu Hdz on 36-96-2600EIV Coag (PPP) [Relative time]1.1 {INR}[facility] HospitalComment on above: INR Therapeutic Range A) [...] Auto (Bld) [#/Vol]Ordered By: Jean Jett on 85-82-8534Ejzasieeh (Bld) [#/Vol]263 10*3/fZ515-502LnacgholgKeenan Private HospitalProtein Auto test strip (U) [Mass/Vol]Ordered By: Jean Jett on 53-48-4172Sdmcgdo (U) [Mass/Vol]100 mg/dLNegativeKeenan Private HospitalRBC Auto (Bld) [#/Vol]Ordered By: Jean Jett on 70-60-4746SDF (Bld) [#/Vol]3.43 10*6/uL 3.60-5.00[facility] Centererum or plasma anion gap determinationOrdered By: Jean Jett on 82-57-9558Qczus gap [Moles/Vol]8.5 mmol/L6.0-15.0[facility] Centererum or plasma calcium measurement (mass/volume)Ordered By: Jean Jett on 32-37-8393Eeyszjo [Mass/Vol]8.6 mg/dL8.2-10.2FWestern Reserve Hospitalerum or plasma chloride measurement (moles/volume)Ordered By: Jean Jett on 04-10-2022 Chloride [Moles/Vol]106 mmol/Z55-180VspzdimgeCoshocton Regional Medical Centererum or plasma glucose measurement (mass/volume)Ordered By: Jean Jett on 04-10-2022 Glucose [Mass/Vol]99 mg/uG29-942JhyrbofwvKeenan Private HospitalComment on above:ADA recommended reference rangeRandom Glucose Reference Range is dependent on time and content of last meal. Glucose of more than 200 mg/dL in a nonstressed, ambulatory subject supports the diagnosisof Diabetes Mellitus.Serum or plasma potassium measurement (moles/volume)Ordered By: Jean Jett on 81-41-7019Cahipzfip [Moles/Vol]3.6 mmol/L3.5-5.1FWestern Reserve Hospitalerum or plasma sodium measurement (moles/volume)Ordered By: Jean Jett on 90-25-6265Bvdoip [Moles/Vol]138 mmol/T502-630WvvnwrwmtCoshocton Regional Medical Centererum or plasma total carbon dioxide measurement (moles/volume)Ordered By: Jean Jett on 76-65-6439DF6 [Moles/Vol]27.1 mmol/L22.0-30.0[facility] Centererum or plasma urea nitrogen measurement (mass/volume)Ordered By: Jean Jett on 09-68-8775Cqre nitrogen [Mass/Vol]5 mg/dL9-23Coshocton Regional Medical Centerpecific gravity Auto test strip (U) [Rel density]Ordered By: Jean Jett on 30-28-4423Oexjnjqp gravity (U) [Rel density]1.0331.001-1.030 [facility] Centerquamous epithelial cells detection in urine sediment by light microscopyOrdered By: Jean Jett on 97-52-5479Euavwbqfmb cells.squamous LM Ql (Urine sed)3-4 [HPF]0-2FSalem Regional Medical Center Urine bacteria detection by automated methodOrdered By: Jean Jett on 51-52-1676Ynjlgktn Auto Ql (U)None seenNone SeenKeenan Private HospitalUrine clarity by refractometry automatedOrdered By: Jean Jett on 79-71-9225Nzpewrb Refractometry automated (U)TurbidClearFSalem Regional Medical CenterUrine culture routineOrdered By: Jean Jett on 04-10-2022 Bacteria identified Cx Nom (U)2 DaysKeenan Private HospitalUrine glucose measurement by automated test strip (mass/volume)Ordered By: Jean Jett on 10-94-5765Pdkvzpm Auto test strip (U) [Mass/Vol]Normal mg/dLDayton Osteopathic HospitalUrine hemoglobin detection by automated test stripOrdered By: Jean Jett on 63-67-7420Xxaixmwwnq Auto test strip Ql (U)3+ NegativeKeenan Private HospitalUrine leukocyte esterase detection by automated test stripOrdered By: Jean Jett on 24-21-6540Adpsrwoou esterase Auto test strip Ql (U)2+NegativeKeenan Private HospitalUrine sediment crystal identification by light microscopyOrdered By: Jean Jett on 04-10-2022 Crystals LM Nom (Urine sed)None seen [HPF][facility] Urobilinogen Auto test strip (U) [Mass/Vol]Ordered By: Jean Jett on 75-13-6734Mqnrexkyivae (U) [Mass/Vol]Normal mg/dLMarietta Memorial HospitalWBC Auto (Bld) [#/Vol]Ordered By: Jean Jett on 93-55-3971JBZ (Bld) [#/Vol]8.5 10*3/uL3.8-11.6FSalem Regional Medical CenterpH Auto test strip (U)Ordered By: Jean Jett on 51-42-3802uJ (U)5.5 [pH]5.0-9.0[facility] HospitalBasophils Auto (Bld) [#/Vol]Ordered By: PROVIDER TEMP on 22-77-2779Denleypnt (Bld) [#/Vol]0.0 10*3/uL0.0-0.2FSalem Regional Medical CenterBasophils/100 WBC Auto (Bld)Ordered By: PROVIDER TEMP on 04-08-2022 Basophils/100 WBC (Bld)0.4 %.[facility] HospitalEosinophils Auto (Bld) [#/Vol]Ordered By: PROVIDER TEMP on 22-16-2135Nufqurmxvcv (Bld) [#/Vol]0.4 10*3/uL0.0-0.45[facility] HospitalEosinophils/100 WBC Auto (Bld) Ordered By: PROVIDER TEMP on 72-53-5313Snolkideimq/100 WBC (Bld)5.5 %.[facility] HospitalErythrocyte distribution width Auto (RBC) [Ratio]Ordered By: PROVIDER TEMP on 82-88-4030Oazdpyhiovb distribution width (RBC) [Ratio]14.1 %11.9-15.3FSalem Regional Medical CenterHematocrit Auto (Bld) [Volume fraction]Ordered By: PROVIDER TEMP on 41-18-7930Jrvspuitjt (Bld) [Volume fraction]33.9 %34.0-46.4FSalem Regional Medical CenterHemoglobin [Mass/volume] in BloodOrdered By: PROVIDER TEMP on 14-20-6626Eomcxyrnvy (Bld) [Mass/Vol]11.4 g/dL11.8-15.4FSalem Regional Medical CenterLeukocytes [#/volume] corrected for nucleated erythrocytes in Blood by Automated coun Ordered By: PROVIDER TEMP on 29-63-5246SSH corrected for nucl RBC Auto (Bld) [#/Vol]8.1 10*3/uL3.8-11.6FSalem Regional Medical CenterLymphocytes Auto (Bld) [#/Vol]Ordered By: PROVIDER TEMP on 06-79-0306Ugkuinzfwuk (Bld) [#/Vol]2.3 10*3/uL1.00-4.8[facility] HospitalLymphocytes/100 WBC Auto (Bld) Ordered By: PROVIDER TEMP on 93-05-9942Objniuyycys/100 WBC (Bld)28.1 %.[facility] Private HospitalMCH Auto (RBC) [Entitic mass]Ordered By: PROVIDER TEMP on 94-58-6558TEC (RBC) [Entitic mass]29.0 pg24.7-34.3FSalem Regional Medical CenterMCHC Auto (RBC) [Mass/Vol]Ordered By: PROVIDER TEMP on 55-50-6795TODQ (RBC) [Mass/Vol]33.7 g/dL32.0-35.0[facility] HospitalMCV Auto (RBC) [Entitic vol]Ordered By: PROVIDER TEMP on 81-20-8999EWK (RBC) [Entitic vol]86.0 uI28-185IbzrppfkbKeenan Private HospitalMonocyte distribution width [Entitic volume] in Blood by AutomatedOrdered By: PROVIDER TEMP on 04-08-2022 Monocyte distribution width Auto (Bld) [Entitic vol]13.83 %0.00-20.00[facility] HospitalMonocytes Auto (Bld) [#/Vol]Ordered By: PROVIDER TEMP on 15-40-2147Twctazdxr (Bld) [#/Vol]0.5 10*3/uL0.0-0.8[facility] HospitalMonocytes/100 WBC Auto (Bld)Ordered By: PROVIDER TEMP on 04-08-2022 Monocytes/100 WBC (Bld)6.7 %.[facility] Private HospitalNeutrophils Auto (Bld) [#/Vol]Ordered By: PROVIDER TEMP on 21-60-9210Rjyrqoehvfy (Bld) [#/Vol]4.8 10*3/uL1.8-7.7FSalem Regional Medical CenterNeutrophils/100 WBC Auto (Bld) Ordered By: PROVIDER TEMP on 07-44-7588Pxrervuxslt/100 WBC (Bld)59.3 %.[facility] HospitalNucleated erythrocytes [Presence] in Blood by Automated countOrdered By: PROVIDER TEMP on 25-79-0387Omymghguq RBC Auto Ql (Bld)0.2 /100{WBC}0-0.5FSalem Regional Medical CenterPlatelet mean volume Auto (Bld) [Entitic vol]Ordered By: PROVIDER TEMP on 72-75-6748Xfgnksbv mean volume (Bld) [Entitic vol]7.0 fL6.3-10.7FSalem Regional Medical CenterPlatelets Auto (Bld) [#/Vol]Ordered By: PROVIDER TEMP on 49-30-6025Ryyloebxj (Bld) [#/Vol]199 10*3/uL 150-450Keenan Private HospitalRBC Auto (Bld) [#/Vol]Ordered By: PROVIDER TEMP on 44-38-4898PWG (Bld) [#/Vol]3.94 10*6/uL3.60-5.00[facility] HospitalWBC Auto (Bld) [#/Vol]Ordered By: PROVIDER TEMP on 52-98-5963JJR (Bld) [#/Vol]8.1 10*3/uL3.8-11.6FSalem Regional Medical Center XR shoulder RT min 2V*on 86-74-0747LC shoulder RT min 2V*[facility] [employer] Other XR shoulder RT min 2V*[facility] [employer] Other XR shoulder RT min 2V*[address] [place] [address] [employer] Other XR shoulder RT min 2V*[place] [address]Jpm[place] [employer] Other XR shoulder RT min 2V*[facility] [employer] Other XR shoulder RT min 2V*[facility] [employer] Other XR shoulder RT min 2V*Patient: Jaz Sanders MR#: [id number] [employer] Other XR shoulder RT min 2V*[address] [employer] Other XR shoulder RT min 2V*: 1995 Acct:[id number] [place] [employer] Other XR shoulder RT min 2V*Age/Sex: 27 / F ADM Date: 03/23/22[place] [employer] Other XR shoulder RT min 2V*[facility]: Type: [facility] [employer] Other XR shoulder RT min 2V*Attending Dr: Amanda Ford APRN, [facility] [employer] Other XR shoulder RT min 2V*Copies to: Amanda Ford APRN, [facility] [employer] Other XR shoulder RT min 2V*Ordering Provider: Amanda Ford APRN, [facility] [employer] Other XR shoulder RT min 2V*Date of Service: 03/23/22[place] [employer] Other XR shoulder RT min 2V* XR/XR shoulder RT min 2V*: Other chronic pain;Pain in right shoulderStinesville [employer] Other XR shoulder RT min 2V*RIGHT SHOULDER - - 3 viewsSt[place] [employer] Other XR shoulder RT min 2V*CLINICAL HISTORY: Pain lateral to right shoulder for 6 months.[employer] Other XR shoulder RT min 2V*COMPARISON: [facility] [employer] Other XR shoulder RT min 2V*FINDINGS:[employer] Other XR shoulder RT min 2V*Minimal degenerative changes of the right AC joint. Glenohumeral joint is grossly unremarkable. [facility] [employer] Other XR shoulder RT min 2V*acute bony process.[place] [employer] Other XR shoulder RT min 2V* XR/XR shoulder RT min 2V*[employer] Other XR shoulder RT min 2V*IMPRESSION:[employer] Other XR shoulder RT min 2V*MINIMAL DEGENERATIVE CHANGES. NO ACUTE BONY PROCESS.[employer] Other XR shoulder RT min 2V*Impression dictated by: Sravan Dickinson Jr., D.O.03/23/2022 4:06 [facility] [employer] Other xr shoulder RT min 2V*Dictation Location: [address] [employer] Other xr shoulder RT min 2V*Transcribed By: [facility] 03/23/[address] [place] [address] [employer] Other xr shoulder RT min 2V*Dictated By: Sravan Dickinson Jr, DO 03/23/[address] [place] [address] [employer] Other xr shoulder RT min 2V*Signed By:[employer] Other xr shoulder RT min 2V*03/23/[address] [place] [address] [employer] Other Coding Summary.on 01-07-9134Gsodvi Summary. CD:[id number]:[id number]+PGhlYWQ+LN9BHSMqC81zpSKieG1BO4cMGK9VFYMPIUVCTB6GSE0hn XS4FLpuE0IqcgYv [file] cHNl (more content not included)...[facility] CenterHeart and Vascular Office/Clinic Noteon 44-40-5890Rpwxd and Vascular Office/Clinic Note Chief Complaint Testing [...] after patient or guardian consented to allow [employer] to record this visit. ANAMARIA environmental programs specialist and provider reviewed before signing. ANAMARIA: [...] Family History Bipolar: Sister. Depression: Mother and Grandparent.[facility] Medical CenterComment on above:Result Comment: Electronically Signed By: Jay DAVEY, Samir Rivera\.br\Date and Time Signed: 09/02/21 09:25 EDT\.br\Electronically Co-Signed By: Rissa Arias\.br\Date and Time Co-Signed: 09/01/21 17:11 EDTCoding Summary.on 42-71-3325Gdhmqa Summary. CD:[id number]:[id number]+PGhlYWQ+OF8PWGCgZ42qaIEvqC6ZH2vNJY7OHLIWJEAJRX0XEJ4tq OM2ESteL7YxdlNn [file] cHNl (more content not included)...NormalKnox Community HospitalConsent for Treatmenton 17-73-8106Onixndk for Treatment [id number]#1.00CD:127NormHolzer Medical Center – JacksonProgress Note-Physicianon 07-32-3185Evvsyplk Note-Physician [id number]#1.00CD:127NormHolzer Medical Center – JacksonHolter Monitoron 24-30-6839Aykgcn Uqujkgy56-OYNT HOLTER MONITOR ORDERING PHYSICIAN: Samir Christofferson, M.D. [...] READ BY: Mariam Salazar M.D. Dictated: 08/26/2021 [id number] Transcribed: 08/27/2021 cc:Samir Thompson M.D.[facility] CenterComment on above: Result Comment: Electronically Signed By: Martin DAVEY, Mariam Galan\.br\Date and Time Signed: 08/27/21 10:21 EDTHolter Monitor [id number]#1.00CD:127NoGeorgetown Behavioral HospitalConsent for Treatmenton 25-47-6971Deastgq for Treatment [id number]#1.00CD:127NoGeorgetown Behavioral HospitalCoding Summary.on 40-27-7951Krhitj Summary. CD:[id number]:[id number]+PGhlYWQ+XQ2OESCwW40yuLEdsU0OZ2kNXO0YDXQGFYFNHL4XLR2ew MW7VZazO6JpzsIj [file] cHNl (more content not included)...NormalTrumbull Memorial Hospitaltre EKG Tracingson 30-90-5493Xwsntu EKG Tracings [id number]#1.00CD:127[facility] CenterConsent for Treatmenton 95-42-1602Pvxjpnw for Treatment [id number]#1.00CD:127[facility] Medical CenterCoding Summary.on 17-76-1980Mpnxhk Summary. CD:309252UJ:6232627ZUt5wCc+PGhlYWQ+YY4TLAMvU61siTWiiF3HO6xFAO2WXNINCBJYPI6UPS8yv BK3DQunY7DxxlBh [file] cHNl (more content not included)...[facility] CenterProgress Note-Physicianon 64-38-9844Kcwttkie Note-Physician [id number]#1.00CD:127NormHolzer Medical Center – JacksonHeart and Vascular Office/Clinic Noteon 67-66-6770Dpihi and Vascular Office/Clinic NoteChief Complaint Bradycardia History [...] rate increases with exercise. She presented to [facility] 2 weeks ago for suspected nephrolithiasis [...] after patient or guardian consented to allow [employer] to record this visit. ANAMARIA environmental programs specialist and provider reviewed before signing. ANAMARIA: [...] Tobacco Use:. Never [place] (more content not included)...[facility] CenterComment on above:Result Comment: Electronically Signed By: Samir Thompson MD\.br\Date and Time Signed: 07/27/21 10:44 EDT\.br\Electronically Co-Signed By: Rissa Arias\.br\Date and Time Co-Signed: 07/24/21 16:24 EDTConsent for Treatmenton 04-03-7190Rbdlhbn for [id number]#1.00CD:[address] [place], [place] [address]Referrals Officeon 28-06-8177Bhhknzrju Office [id number]#1.00CD:127[facility] Medical CenterBASIC METABOLIC PANELon 35-75-1723Jmjvt gap [Moles/Vol]8 mmol/LLow9 - 17 mmol/LMtrinity health system east campusy Health- [place], KYBun/Cre RatioNOT REPORTEDMer Health- [place], KYCalcium [Mass/Vol]9.2 mg/dL8.6 - 10.4 mg/dLMercy Health- [place], [place]Chloride [Moles/Vol]105 mmol/L98 - 107 mmol/LMercy Health- [place], KYCO2 [Moles/Vol]26 mmol/L20 - 31 mmol/L [facility] [place], [place]Creatinine [Mass/Vol]0.67 mg/dL0.5 - 0.9 mg/dLMercy Health- [place], KYGFR >60>60 mL/minMercy Health- [place], KYGFR Non->60>60 mL/minMercy Health- [place], KYGFR/1.73 sq M predicted among non- blacks MDRD (S/P/Bld) [Vol rate/Area]NOT REPORTEDMercy Health- [place], KYGFR/1.73 sq M predicted among non-blacks MDRD (S/P/Bld) [Vol rate/Area][facility] [place] [place] Comment on above:Average GFR for 20-29 years old: 116 mL/min/1.73sq m Chronic Kidney Disease: <60 mL/min/1.73sq m Kidney failure: <15 mL/min/1.73sq m eGFR calculated using average adult body mass. Additional eGFR calculator available at: http://www.[employer]/multiple_crcl_2012.htm Glucose [Mass/Vol]99 mg/dL70 - 99 mg/dLChillicothe VA [facility] Center, KYInterpretation and review of laboratory resultsAbnormalChillicothe VA Medical Center, KYPotassium [Moles/Vol]4.5 mmol/L3.7 - 5.3 mmol/LMLouis Stokes Cleveland [facility], KYSodium [Moles/Vol]139 mmol/L135 - 144 mmol/[facility], KYUrea nitrogen [Mass/Vol]5 mg/dLLow6 - 20 mg/dLChillicothe VA Medical Center, KYBasic Metabolic Profon 05-08-2020(cont.)[facility]lyria Memorial HospitalComment on above:Result Comment: Average GFR for 20-29 years old: 116 mL/min/1.73sq m Chronic Kidney Disease: <60 mL/min/1.73sq m Kidney failure: <15 mL/min/1.73sq m eGFR calculated using average adult body mass. Additional eGFR calculator available at: http://www.[employer]/multiple_crcl_2012.htmPerformed By: #### CBC, PT, PTT, BMP #### [facility] [facility] [address] [place] [address] [phone] Product Safety Specialist: Casey Marques MD #### RICKYT #### [facility] [address] [place] [address] Product Safety Specialist: Dontae Ward gap [Moles/Vol]8 mmol/LLow9-17The Metrohealth SystemComment on above:Performed By: #### CBC, PT, PTT, BMP #### [facility] [employer] [address] [place] [address] Product Safety Specialist: Casey Marques MD #### ANICOT #### [facility] [address] [place] [address] Product Safety Specialist: XIN Wardalcium [Mass/Vol]9.2 mg/dLNormal8.6-10.4The Metrohealth SystemComment on above:Performed By: #### CBC, PT, PTT, BMP #### [facility] [address] [place] [address] [phone] Product Safety Specialist: Casey Marques MD #### ANICOT #### [facility] [address] [place] [address] [phone] Product Safety Specialist: XIN Wardhloride [Moles/Vol]105 mmol/GNmzcqn80-405OsoovThe Metrohealth SystemComment on above:Performed By: #### CBC, PT, PTT, BMP #### [address] [phone] Product Safety Specialist: Casey Marques MD #### ANICOT #### [facility] [address] [place] [address] [phone] Product Safety Specialist: XIN WardO2 [Moles/Vol]26 mmol/CEoocdc20-47AjhepThe Metrohealth SystemComment on above:Performed By: #### CBC, PT, PTT, BMP #### [address] [phone] Product Safety Specialist: Casey Marques MD #### ANICOT #### [facility] [address] [place] [address] Product Safety Specialist: XIN Wardreatinine [Mass/Vol]0.67 mg/dLNormal0.50-0.90 The Metrohealth SystemComment on above:Performed By: #### CBC, PT, PTT, BMP #### [facility] [address] [place] [address] [phone] Product Safety Specialist: Casey Marques MD #### ANICOT #### [facility] [address] [place] [address] Product Safety Specialist: Adolph Diaz MDGFR, Amer>60Normal>60[facility] ClearlakeComment on above:Performed By: #### CBC, PT, PTT, BMP #### [facility] [address] [place] [address] [phone] Product Safety Specialist: Casey Marques MD #### ANICOT #### [facility] [address] [place], [place] [phone] Product Safety Specialist: Adolph Diaz MDGFR,non Amer>60Normal>60[facility] ClearlakeComment on above:Performed By: #### CBC, PT, PTT, BMP #### [facility] [address] [place] [address] [phone] Product Safety Specialist: Casey Marques MD #### ANICOT #### [facility] [address] [place] [address] Product Safety Specialist: Adolph Diaz MDGlucose [Mass/Vol]99 mg/qSFvdttr54-56Xmsmk [facility] ClearlakeComment on above:Performed By: #### CBC, PT, PTT, BMP #### [facility] [address] [place] [address] [phone] Product Safety Specialist: Casey Marques MD #### ANICOT #### [facility] [address] [place] [address] Product Safety Specialist: Brianna Wardssium [Moles/Vol]4.5 mmol/LNormal3.7-5.3[facility] ClearlakeComment on above:Performed By: #### CBC, PT, PTT, BMP #### [facility] [address] [place] [address] [phone] Product Safety Specialist: Casey Marques MD #### ANICOT #### [facility] [address] [place] [address] Product Safety Specialist: Adolph Diaz, MDSodium [Moles/Vol]139 mmol/MBnabsw098-011MckhgThe Metrohealth SystemComment on above:Performed By: #### CBC, PT, PTT, BMP #### [facility] [address] [place] [phone] Product Safety Specialist: Casey Marques MD #### ANICOT #### [facility] [address] [place], [place] [phone] Product Safety Specialist: Adolph Diaz MDUrea nitrogen [Mass/Vol]5 mg/dLLow6-20The Metrohealth SystemComment on above:Performed By: #### CBC, PT, PTT, BMP #### [facility] [address] [place] [address] Product Safety Specialist: Casey Marques MD #### ANICOT #### [facility] [address] [place], [place] [phone] Product Safety Specialist: ANTONIETA Ward/CRE JiOT REPORTEDNormal9-20The Metrohealth SystemComment on above:Performed By: #### CBC, PT, PTT, BMP #### [facility] [address] [place] [address] [phone] Product Safety Specialist: Casey Marques MD #### ANICOT #### [facility] [address] [place], [place] [phone] Product Safety Specialist: JACINTO Wardtaging:NOT REPORTEDNormalThe Metrohealth SystemComment on above:Performed By: #### CBC, PT, PTT, BMP #### [facility] [address] [place] [address] 7[address] Product Safety Specialist: Casey Marques MD #### ANICOT #### [facility] [address] [place] [address] Product Safety Specialist: Adolph Diaz [facility] WITH AUTO DIFFERENTIALon [id number] (Bld) [#/Vol]0.06 10*3/[facility], KYBasophils/100 WBC (Bld)1 %0 - 2 % [facility], NJDifferential TypeNOT REPORTEDChillicothe VA Medical Center, KYEosinophils (Bld) [#/Vol]0.35 10*3/[facility], KYEosinophils/100 WBC (Bld)3 %1 - 4 %[facility], NJErythrocyte distribution width (RBC) [Ratio]14.7 %High11.8 - 14.4 %[facility], NJHematocrit (Bld) [Volume fraction]38.4 %36.3 - 47.1 %[facility], NJHemoglobin (Bld) [Mass/Vol]12.0 g/dL11.9 - 15.1 g/dLChillicothe VA Medical Center, NJImmature granulocytes (Bld) [#/Vol]1 %[address] [place] [address], [place] Immature granulocytes (Bld) [#/Vol]0.06 10*3/[facility], [place] Interpretation and review of laboratory resultsAbnormDunlap Memorial Hospital, [place] Lymphocytes (Bld) [#/Vol]2.21 10*3/[facility], NORMALymphocytes/100 WBC (Bld)21 %Low24 - 43 %[facility], NJMCH (RBC) [Entitic mass]26.5 pg25.2 - 33.5 pgChillicothe VA Medical Center, NJMCHC (RBC) [Mass/Vol]31.3 g/dL28.4 - 34.8 g/dLChillicothe VA Medical Center, NJMCV (RBC) [Entitic vol]85.0 fL82.6 - 102.9 fLChillicothe VA Medical Center, [place] Monocytes (Bld) [#/Vol]0.71 10*3/[facility], KYMonocytes/100 WBC (Bld)7 %3 - 12 %[facility], NJPlatelet mean volume (Bld) [Entitic vol]8.6 fL8.1 - 13.5 fLChillicothe VA Medical Center, NJPlatelets (Bld) [#/Vol]256 10*3/[facility], KYPlatelets (Bld) [#/Vol]NOT REPORTEDOhioHealth [facility] (Bld) [#/Vol]4.52 10*6/uL3.95 - 5.11 m/[facility], [facility] morphology finding Nom (Bld) ANISOCYTOSIS PRESENTChillicothe VA Medical Center, NJSegmented neutrophils/100 WBC (Bld)67 % High36 - 65 %[place], KYSegs Absolute7.30[facility], NJWBC (Bld) [#/Vol]10.7 10*3/uLChillicothe VA Medical Center, NJWBC (Bld) [#/Vol]0.0 10*3/uL0.0 per 100 WBCChillicothe VA Medical Center, [facility]IP[facility] MorphologyNOT REPORTEDSelect Medical [facility] with Diffon [id number]. Basophil0.06 k/uLNormal0.00-0.20The Metrohealth SystemComment on above:Performed By: #### CBC, PT, PTT, BMP #### [facility] [facility] [address] [place] [address] [phone] Product Safety Specialist: Casey Marques MD #### ANALI #### [facility] [address] [place] [address] Product Safety Specialist: Ashley Ward.Imm.Granulocyte0.06 k/uLNormal0.00-0.30The Metrohealth SystemComment on above:Performed By: #### CBC, PT, PTT, BMP #### [facility] [address] [place] [address] Product Safety Specialist: Casey Marques MD #### RICKYT #### [facility] [address] [place] [address] Product Safety Specialist: Ashley Ward.Neutrophil (Seg)7.30 k/uLNormal1.50-8.10The Metrohealth SystemComment on above:Performed By: #### CBC, PT, PTT, BMP #### [facility] [address] [place] [address] Product Safety Specialist: Casey Marques MD #### ANICOT #### [facility] [address] [place], [place] [phone] Product Safety Specialist: Adolph Diaz MDBasophils/100 WBC (Bld)1 %Normal0-2MJohn C. Fremont HospitalComment on above:Performed By: #### CBC, PT, PTT, BMP #### [facility] [address] [place] [address] Product Safety Specialist: Casey Marques MD #### ANICOT #### [address] [phone] Product Safety Specialist: Adolph Diaz MDEosinophils (Bld) [#/Vol]0.35 10*3/uLNormal 0.00-0.44The Metrohealth SystemComment on above:Performed By: #### CBC, PT, PTT, BMP #### [address] [address] Product Safety Specialist: Casey Marques MD #### ANICOT #### [address] [phone] Product Safety Specialist: Adolph Diaz MDEosinophils/100 WBC (Bld)3 %Normal1-4The Metrohealth SystemComment on above:Performed By: #### CBC, PT, PTT, BMP #### [address] [address] Product Safety Specialist: Casey Marques MD #### ANICOT #### [address] [phone] Product Safety Specialist: Adolph Diaz MDErythrocyte distribution width (RBC) [Ratio]14.7 %High11.8-14.4The Metrohealth SystemComment on above:Performed By: #### CBC, PT, PTT, BMP #### [facility] [address] [place] [address] Product Safety Specialist: Casey Marques MD #### ANICOT #### [facility] [address] [place] [address] Product Safety Specialist: Adolph Diaz MDHematocrit (Bld) [Volume fraction]38.4 %Normal 36.3-47.1MJohn C. Fremont HospitalComment on above:Performed By: #### CBC, PT, PTT, BMP #### [facility] [address] [place] [address] Product Safety Specialist: Casey Marques MD #### ANICOT #### [facility] [address] [place] [address]54 Product Safety Specialist: Adolph Diaz MDHemoglobin (Bld) [Mass/Vol]12.0 g/dLNormal 11.9-15.1Mtrinity health system east campusy [facility] ClearlakeComment on above:Performed By: #### CBC, PT, PTT, BMP #### [facility] [address] [place] [address] Product Safety Specialist: Casey Marques MD #### ANICOT #### [facility] [address] [place], [place] [phone] Product Safety Specialist: Adolph Diaz MDImmature granulocytes/100 WBC (Bld)1 %Vsnv3CbgihWestern Medical CenterComment on above:Performed By: #### CBC, PT, PTT, BMP #### [facility] [address] [place] [address] 52547 Product Safety Specialist: Casey Marques MD #### ANICOT #### [facility] [address] [place], [place] [phone] Product Safety Specialist: Adolph Diaz MDLymphocytes (Bld) [#/Vol]2.21 10*3/uLNormal 1.10-3.70The Metrohealth SystemComment on above:Performed By: #### CBC, PT, PTT, BMP #### [address] [address] Product Safety Specialist: Casey Marques MD #### ANICOT #### [facility] [address] [place], [place] [phone] Product Safety Specialist: Adolph Diaz MDLymphocytes/100 WBC (Bld)21 %Ybv60-20MrwlkThe Metrohealth SystemComment on above:Performed By: #### CBC, PT, PTT, BMP #### [place] [address] Product Safety Specialist: Casey Marques MD #### ANICOT #### [address] [phone] Product Safety Specialist: NIMCO Ward (RBC) [Entitic mass]26.5 jlTysciu40.2-33.5 The Metrohealth SystemComment on above:Performed By: #### CBC, PT, PTT, BMP #### [address] [phone] Product Safety Specialist: Casey Marques MD #### ANICOT #### [address] [phone] Product Safety Specialist: NIMCO WardC (RBC) [Mass/Vol]31.3 g/nVGdyjvg84.4-34.8 The Metro[facility] SystemComment on above:Performed By: #### CBC, PT, PTT, BMP #### [address] [phone] Product Safety Specialist: Casey Marques MD #### ANICOT #### [facility] [address] [place], [place] [phone] Product Safety Specialist: Adolph Diaz, MDMCV (RBC) [Entitic vol]85.0 sCAtvvpl93.6-102.9 The Metro[facility] SystemComment on above:Performed By: #### CBC, PT, PTT, BMP #### [address] [address] Product Safety Specialist: Casey Marques MD #### ANICOT #### [facility] [address] [place] [address] Product Safety Specialist: Adolph Diaz MDMonocytes (Bld) [#/Vol]0.71 10*3/uLNormal 0.10-1.20The Metrohealth SystemComment on above:Performed By: #### CBC, PT, PTT, BMP #### [address] [address] Product Safety Specialist: Casey Marques MD #### ANICOT #### [facility] [address] [place] [address] Product Safety Specialist: YESSICA Wardonocytes/100 WBC (Bld)7 %Normal3-12The Metrohealth SystemComment on above:Performed By: #### CBC, PT, PTT, BMP #### [address] [address] Product Safety Specialist: Casey Marques MD #### ANICOT #### [facility] [address] [place] [address] Product Safety Specialist: Adolph Diaz MDNeutrophil (Seg)67 %Tqot90-37QtyfhThe Metrohealth SystemComment on above:Performed By: #### CBC, PT, PTT, BMP #### [address] [address] Product Safety Specialist: Casey Marques MD #### ANICOT #### [facility] [address] [place] [address] Product Safety Specialist: Adolph Diaz MDNRBC Automated0.0 per 100 WBCNormal0.0The Metrohealth SystemComment on above:Performed By: #### CBC, PT, PTT, BMP #### [address] [address] Product Safety Specialist: Casey Marques MD #### ANICOT #### [facility] [address] [place] [address] Product Safety Specialist: Stephan Ward mean volume (Bld) [Entitic vol]8.6 fL Normal8.1-13.5The Metrohealth SystemComment on above:Performed By: #### CBC, PT, PTT, BMP #### [address] [address] Product Safety Specialist: Casey Marques MD #### ANICOT #### [facility] [address] [place] [address] Product Safety Specialist: Yajaira Ward (Bld) [#/Vol]256 10*3/gJFezryv758-056 The Metrohealth SystemComment on above:Performed By: #### CBC, PT, PTT, BMP #### [address] [address] Product Safety Specialist: Casey Marques MD #### ANICOT #### [facility] [address] [place] [address] Product Safety Specialist: Adolph Diaz MDRBC (Bld) [#/Vol]4.52 10*6/uLNormal3.95-5.11The Metrohealth SystemComment on above:Performed By: #### CBC, PT, PTT, BMP #### [address] [address] Product Safety Specialist: Casey Marques MD #### ANICOT #### [facility] [address] [place] [address] Product Safety Specialist: RAYMON Ward morphology finding Nom (Bld)ANISOCYTOSIS PRESENTElyria Memorial HospitalComment on above:Performed By: #### CBC, PT, PTT, BMP #### [facility] [address] [place] [address] Product Safety Specialist: Casey Marques MD #### ANICOT #### [facility] [address] [place] [address] Product Safety Specialist: DIEGO Ward (Bld) [#/Vol]10.7 10*3/uLNormal3.5-11.3[facility] ClearlakeComment on above:Performed By: #### CBC, PT, PTT, BMP #### [facility] [address] [place] [address] Product Safety Specialist: Casey Marques MD #### ANICOT #### [facility] [address] [place] [address] Product Safety Specialist: Arnav Ward PerformedNOT REPORTEDElyria Memorial HospitalComment on above:Performed By: #### CBC, PT, PTT, BMP #### [facility] [address] [place] [address] Product Safety Specialist: Casey Marques MD #### ANICOT #### [facility] [address] [place] [address] Product Safety Specialist: Stephan Ward EstimateNOT REPORTEDElyria Memorial HospitalComment on above:Performed By: #### CBC, PT, PTT, BMP #### [facility] [address] [place] [address] Product Safety Specialist: Casey Marques MD #### ANICOT #### [facility] [address] [place] [address] Product Safety Specialist: DIEGO Ward MorphologyNOT REPORTEDNormalThe Metrohealth SystemComment on above:Performed By: #### CBC, PT, PTT, BMP #### [facility] [facility] [address] [place] [address] [phone] Product Safety Specialist: Casey Marques MD #### ANICOT #### [facility] [address] [place] [address] Product Safety Specialist: JACINTO Wardurgical Pathologyon [id number] Pathology Report-- Diagnosis -- STOMACH, SLEEVE GASTRECTOMY: [...] with no areas of granularity or masses. Project Account Manager sections 1cs. tm Microscopic Description Sections of gastric mucosa show increased lymphocytes and plasma cells in the lamina propria. There is no evidence of acute inflammation, intestinal metaplasia or dysplasia. There is no evidence of organisms suspicious for Helicobacter with the routine H&E stains. SURGICAL PATHOLOGY CONSULTATION Patient Name: JAZ SANDERS [facility] Rec: [id number] Path Number: [id number] [facility] ANATOMIC PATHOLOGY [address] [place] [phone] [facility] [place], KYBasic Metabolic Panelon [id number] gap [Moles/Vol]13 mmol/L9 - 17 mmol/LMercy Health- [place], KYBun/Cre RatioNOT REPORTEDMer[facility] Health- [place], KYCalcium [Mass/Vol]9.4 mg/dL8.6 - 10.4 mg/dLMercy Health- [place], KYChloride [Moles/Vol]104 mmol/L98 - 107 mmol/LMercy Health- [place], [place] CO2 [Moles/Vol]23 mmol/L20 - 31 mmol/[facility] [place], KYCreatinine [Mass/Vol] 0.73 mg/dL0.5 - 0.9 mg/dLChillicothe VA Medical Center, KYGFR >60>60 mL/min [facility], KYGFR Non->60>60 mL/minChillicothe VA Medical Center, [place] GFR/1.73 sq M predicted among non-blacks MDRD (S/P/Bld) [Vol rate/Area]NOT REPORTEDChillicothe VA Medical Center, KYGFR/1.73 sq M predicted among non-blacks MDRD (S/P/Bld) [Vol rate/Area][facility], KYComment on above:Average GFR for 20-29 years old: 116 mL/min/1.73sq m Chronic Kidney Disease: <60 mL/min/1.73sq m Kidney failure: <15 mL/min/1.73sq m eGFR calculated using average adult body mass. Additional eGFR calculator available at: http://www.[employer]/multiple_crcl_2011.htm Glucose [Mass/Vol]98 mg/dL70 - 99 mg/dLChillicothe VA Medical Center, KYPotassium [Moles/Vol] 4.1 mmol/L3.7 - 5.3 mmol/[facility], KYSodium [Moles/Vol]140 mmol/L135 - 144 mmol/[facility], KYUrea nitrogen [Mass/Vol]6 mg/dL6 - 20 mg/dLChillicothe VA [facility] Center, KYBasic Metabolic Profon 05-07-2020(cont.)Elyria Memorial HospitalComment on above:Result Comment: Average GFR for 20-29 years old: 116 mL/min/1.73sq m Chronic Kidney Disease: <60 mL/min/1.73sq m Kidney failure: <15 mL/min/1.73sq m eGFR calculated using average adult body mass. Additional eGFR calculator available at: http://www.[employer]/multiple_crcl_2012.htmPerformed By: #### CBC, BMP #### [facility] [facility] [facility] [place] [address] Product Safety Specialist: Casey Marques MDAnion gap [Moles/Vol]13 mmol/LNormal9-17The Metrohealth SystemComment on above:Performed By: #### CBC, BMP #### [facility] [address] [place] [address] Product Safety Specialist: Casey Marques MDCalcium [Mass/Vol]9.4 mg/dLNormal8.6-10.4The Metrohealth SystemComment on above:Performed By: #### CBC, BMP #### [facility] [address] [place] [address] Product Safety Specialist: Casey Marques MDChloride [Moles/Vol]104 mmol/CJwfxdl12-963WjuhfThe Metrohealth SystemComment on above:Performed By: #### CBC, BMP #### [facility] [address] [place] [address] Product Safety Specialist: Casey Marques MDCO2 [Moles/Vol]23 mmol/LShifgb48-32AofcsThe Metrohealth SystemComment on above:Performed By: #### CBC, BMP #### [facility] [address] [place] [address] Product Safety Specialist: Casey Marques MDCreatinine [Mass/Vol]0.73 mg/dLNormal0.50-0.90 The Metrohealth SystemComment on above:Performed By: #### CBC, BMP #### [facility] [address] [place] [address] Product Safety Specialist: SIRISHA Capellan, Amer>60Normal>60The Metrohealth SystemComment on above:Performed By: #### CBC, BMP #### [facility] [address] [place] [address] Product Safety Specialist: Casey Madoff, MDGFR,non Amer>60Normal>60The Metrohealth SystemComment on above:Performed By: #### CBC, BMP #### [facility] [address] [place] [address] Product Safety Specialist: Casey Marques MDGlucose [Mass/Vol]98 mg/iJThkogn92-82EugqjJohn C. Fremont HospitalComment on above:Performed By: #### CBC, BMP #### [facility] [address] [place] [address] Product Safety Specialist: VERONICA Capellanotassium [Moles/Vol]4.1 mmol/LNormal3.7-5.3 The Metrohealth SystemComment on above:Performed By: #### SAGRARIO, BMP #### [address] [address] Product Safety Specialist: JACINTO Capellanodium [Moles/Vol]140 mmol/OLlmmhm584-860XtnlcThe Metrohealth SystemComment on above:Performed By: #### SAGRARIO, BMP #### [address] [address] Product Safety Specialist: Casey Marques MDUrea nitrogen [Mass/Vol]6 mg/dLNormal6-20The Metro[facility] SystemComment on above:Performed By: #### SAGRARIO, BMP #### [address] [address] Product Safety Specialist: Casey Marques MDBUN/CRE RatioNOT REPORTEDNormal9-20The Metrohealth SystemComment on above:Performed By: #### SAGRARIO, BMP #### [address] [address] Product Safety Specialist: JACINTO Capellantaging:NOT REPORTEDNormalThe Metrohealth SystemComment on above:Performed By: #### CBC, BMP #### [facility] [employer] [address] [place] [address] Product Safety Specialist: Nacho Capellan 78-12-2878Fmeuxatocjx distribution width (RBC) [Ratio]14.4 %Bzkgfj35.8-14.4The Metrohealth SystemComment on above:Performed By: #### CBC, BMP #### [address] [address] Product Safety Specialist: Casey Marques MDHematocrit (Bld) [Volume fraction]40.4 %Normal 36.3-47.1MJohn C. Fremont HospitalComment on above:Performed By: #### CBC, BMP #### [address] [address] Product Safety Specialist: Casey Marques MDHemoglobin (Bld) [Mass/Vol]12.6 g/dLNormal 11.9-15.1MJohn C. Fremont HospitalComment on above:Performed By: #### CBC, BMP #### [address] [address] Product Safety Specialist: YESSICA CapellanCH (RBC) [Entitic mass]26.1 bvHgollq10.2-33.5 The Metrohealth SystemComment on above:Performed By: #### CBC, BMP #### [address] [address] Product Safety Specialist: YESSICA CapellanCHC (RBC) [Mass/Vol]31.2 g/pTBhvuvq32.4-34.8 The Metro[facility] SystemComment on above:Performed By: #### CBC, BMP #### [address] [address] Product Safety Specialist: YESSICA CapellanCV (RBC) [Entitic vol]83.8 fNYbfrkh02.6-102.9 The Metro[facility] SystemComment on above:Performed By: #### CBC, BMP #### [address] [address] Product Safety Specialist: Casey Marques MDNRBC Automated0.0 per 100 WBCNormal0.0The Metrohealth SystemComment on above:Performed By: #### CBC, BMP #### [facility] [employer] [address] [place] [address] Product Safety Specialist: Jose Capellantelet mean volume (Bld) [Entitic vol]8.7 fL Normal8.1-13.5The Metrohealth SystemComment on above:Performed By: #### CBC, BMP #### [address] [address] Product Safety Specialist: VERONICA Capellanlatelets (Bld) [#/Vol]289 10*3/jAOdrpye506-946 The Metrohealth SystemComment on above:Performed By: #### CBC, BMP #### [address] [address] Product Safety Specialist: Casey Marques MDRBC (Bld) [#/Vol]4.82 10*6/uLNormal3.95-5.11 The Metrohealth SystemComment on above:Performed By: #### CBC, BMP #### [address] [address] Product Safety Specialist: Casey Marques MDWBC (Bld) [#/Vol]13.7 10*3/uLHigh3.5-11.3MJohn C. Fremont HospitalComment on above:Performed By: #### CBC, BMP #### [facility] [employer] [address] [place] [address] Product Safety Specialist: Casey Marques MDErythrocyte distribution width (RBC) [Ratio]14.4 %11.8 - 14.4 %[facility], KYHematocrit (Bld) [Volume fraction]40.4 %36.3 - 47.1 %[facility], KYHemoglobin (Bld) [Mass/Vol]12.6 g/dL11.9 - 15.1 g/dL [facility], NJInterpretation and review of laboratory resultsAbnormDunlap Memorial Hospital, NJMCH (RBC) [Entitic mass]26.1 pg25.2 - 33.5 pgAlpine, [place] MCHC (RBC) [Mass/Vol]31.2 g/dL28.4 - 34.8 g/dLAlpine, KYMCV (RBC) [Entitic vol]83.8 fL82.6 - 102.9 fLAlpine, KYPlatelet mean volume (Bld) [Entitic vol]8.7 fL8.1 - 13.5 fLChillicothe VA [facility] NJPlatelets (Bld) [#/Vol]289 10*3/[facility], NJRBC (Bld) [#/Vol]4.82 10*6/uL3.95 - 5.11 m/[facility], NJWBC (Bld) [#/Vol]0.0 10*3/uL0.0 per 100 WBCAl[place], KYWBC (Bld) [#/Vol]13.7 10*3/uLHighAlpine, KYFL ESOPHAGRAMon [id number] ESOPHAGRAMEXAMINATION: SINGLE CONTRAST ESOPHAGRAM 05/07/2020 HISTORY: ORDERING [...] Signed by: Petr Cullen MD 05/07/20 Final resultNoOhio State Health SystemEXAMINATION: SINGLE CONTRAST ESOPHAGRAM 05/07/2020 HISTORY: ORDERING SYSTEM [...] gastric sleeve. No obstruction. No extravasation of contrast.[facility] HStreamingELLETT MEMORIAL HOSPITALGerardo Mhpn Incoming Radiant Results From [employer] - 05/07/2020 10:04 AM EST EXAMINATION: SINGLE [...] IMPRESSION: No extravasation of contrast. [facility] Medical CenterAmrit Advanced BiotechELLETT MEMORIAL HOSPITALJacob extravasation of contrast.[facility] HStreamingELLETT MEMORIAL HOSPITALNORMAPOCT urine pregnancyon 77-35-8896Bdpm HCG ( test) Ql (U)NegativeNEGATIVEChillicothe VA [facility] Center, NORMAComment on above:Specimens with hCG levels near the threshold of the test (25 mIU/mL) may give a negative or indeterminate result. In such cases, another test should be performed with a new specimen in 48-72 hours. If early is suspected clinically in this setting, correlation with quantitative serum b-hCG level is suggested. Basic Metabolic Panelon [id number] gap [Moles/Vol]10 mmol/L9 - 17 mmol/L [facility] HStreamingELLETT MEMORIAL HOSPITAL, KYBun/Cre RatioNOT REPORTEDChillicothe VA [facility] Center, KYCalcium [Mass/Vol]9.5 mg/dL8.6 - 10.4 mg/dLChillicothe VA [facility] Center, KYChloride [Moles/Vol]103 mmol/L98 - 107 mmol/LMercLee Health Coconut [place], KYCO2 [Moles/Vol]19 mmol/LLow20 - 31 mmol/LMLouis Stokes Cleveland [facility], KYCreatinine [Mass/Vol]0.9 mg/dL0.5 - 0.9 mg/dLChillicothe VA [facility], KYGFR >60>60 mL/minChillicothe VA Medical Center, KYGFR Non- >60>60 mL/minChillicothe VA Medical Center, KYGFR/1.73 sq M predicted among non-blacks MDRD (S/P/Bld) [Vol rate/Area]NOT REPORTEDChillicothe VA [facility] Center, [place] GFR/1.73 sq M predicted among non-blacks MDRD (S/P/Bld) [Vol rate/Area][facility], KYComment on above:Average GFR for 20-29 years old: 116 mL/min/1.73sq m Chronic Kidney Disease: <60 mL/min/1.73sq m Kidney failure: <15 mL/min/1.73sq m eGFR calculated using average adult body mass. Additional eGFR calculator available at: http://www.[employer]_crcl_2011.htm Glucose [Mass/Vol]162 mg/hXBfxv88 - 99 mg/dLChillicothe VA Medical Center, KYInterpretation and review of laboratory resultsAbnormalChillicothe VA Medical Center, KYPotassium [Moles/Vol]3.9 mmol/L3.7 - 5.3 mmol/[facility], KYSodium [Moles/Vol]132 mmol/LEjp065 - 144 mmol/[facility], KYUrea nitrogen [Mass/Vol]10 mg/dL6 - 20 mg/dLChillicothe VA Medical Center, KYBasic Metabolic Profon 05-06-2020(cont.)NormalThe Metrohealth SystemComment on above:Result Comment: Average GFR for 20- 29 years old: 116 mL/min/1.73sq m Chronic Kidney Disease: <60 mL/min/1.73sq m Kidney failure: <15 mL/min/1.73sq m eGFR calculated using average adult body mass. Additional eGFR calculator available at: http://www.[employer]/multiple_crcl_2012.htmPerformed By: #### CBC, BMP #### [employer] [address] [place] [address] Product Safety Specialist: Casey Marques MDAnion gap [Moles/Vol]10 mmol/LNormal9-17The Metrohealth SystemComment on above:Performed By: #### CBC, BMP #### [facility] [address] [place] [address] Product Safety Specialist: Casey Marques MDCalcium [Mass/Vol]9.5 mg/dLNormal8.6-10.4The Metrohealth SystemComment on above:Performed By: #### CBC, BMP #### [facility] [address] [place] [address] Product Safety Specialist: Casey Marques MDChloride [Moles/Vol]103 mmol/POaelkk99-294NgvvwThe Metrohealth SystemComment on above:Performed By: #### CBC, BMP #### [facility] [address] [place] [address] Product Safety Specialist: Casey Marques MDCO2 [Moles/Vol]19 mmol/HZbx82-40OelflThe Metrohealth SystemComment on above:Performed By: #### CBC, BMP #### [facility] [address] [place] [address] Product Safety Specialist: Casey Marques MDCreatinine [Mass/Vol]0.90 mg/dLNormal0.50-0.90 The Metrohealth SystemComment on above:Performed By: #### CBC, BMP #### [facility] [address] [place] [address] Product Safety Specialist: SIRISHA Capellan, Amer>60Normal>60The Metrohealth SystemComment on above:Performed By: #### CBC, BMP #### [facility] [address] [place] [address] Product Safety Specialist: SIRISHA Capellan,non Amer>60Normal>60The Metrohealth SystemComment on above:Performed By: #### CBC, BMP #### [facility] [address] [place] [address] Product Safety Specialist: Casey Marques MDGlucose [Mass/Vol]162 mg/kPKeoa27-48WjdnwJohn C. Fremont HospitalComment on above:Performed By: #### CBC, BMP #### [facility] [address] [place] [address] Product Safety Specialist: Casey Marqeus MDPotassium [Moles/Vol]3.9 mmol/LNormal3.7-5.3 The Metro[facility] SystemComment on above:Performed By: #### CBC, BMP #### [address] [address] Product Safety Specialist: JACINTO Capellanodium [Moles/Vol]132 mmol/BUjw880-380WggslThe Metrohealth SystemComment on above:Performed By: #### SAGRARIO, BMP #### [address] [address] Product Safety Specialist: Casey Marques MDUrea nitrogen [Mass/Vol]10 mg/dLNormal6-20The Metrohealth SystemComment on above:Performed By: #### CBC, BMP #### [address] [address] Product Safety Specialist: ROSALBA CapellanN/CRE RatioNOT REPORTEDNormal9-20The Metrohealth SystemComment on above:Performed By: #### CBC, BMP #### [address] [address] Product Safety Specialist: JACINTO Capellantaging:NOT REPORTEDNormalThe Metrohealth SystemComment on above:Performed By: #### CBC, BMP #### [address] [address] Product Safety Specialist: Nacho Capellan 90-59-7837Kkfxdjklsua distribution width (RBC) [Ratio]14.6 %High11.8-14.4The Metrohealth SystemComment on above:Performed By: #### CBC, BMP #### [address] [address] Product Safety Specialist: Casey Marques MDHematocrit (Bld) [Volume fraction]42.5 %Normal 36.3-47.1MJohn C. Fremont HospitalComment on above:Performed By: #### CBC, BMP #### [address] [address] Product Safety Specialist: Casey Marques MDHemoglobin (Bld) [Mass/Vol]12.8 g/dLNormal 11.9-15.1MJohn C. Fremont HospitalComment on above:Performed By: #### CBC, BMP #### [address] [address] Product Safety Specialist: YESSICA CapellanCH (RBC) [Entitic mass]26.9 vdIyvrqc30.2-33.5 The Metro[facility] SystemComment on above:Performed By: #### CBC, BMP #### [address] [address] Product Safety Specialist: YESSICA CapellanCHC (RBC) [Mass/Vol]30.1 g/cRRkhuja81.4-34.8 The Metro[facility] SystemComment on above:Performed By: #### CBC, BMP #### [address] [address] Product Safety Specialist: YESSICA CapellanCV (RBC) [Entitic vol]89.3 kWPbztxc33.6-102.9 The Metrohealth SystemComment on above:Performed By: #### CBC, BMP #### [address] [address] Product Safety Specialist: RAMONE Capellan Automated0.0 per 100 WBCNormal0.0The Metrohealth SystemComment on above:Performed By: #### CBC, BMP #### [facility] [employer] [address] [place] [address] Product Safety Specialist: Jose Capellantebrigid mean volume (Bld) [Entitic vol]8.4 fL Normal8.1-13.5The Metro[facility] SystemComment on above:Performed By: #### CBC, BMP #### [facility] [employer] [address] [place] [address] Product Safety Specialist: Jose Capellantelets (Bld) [#/Vol]300 10*3/sQKhbbny360-312 The [facility] SystemComment on above:Performed By: #### CBC, BMP #### [facility] [employer] [address] [place] [address] Product Safety Specialist: MADDI CapellanBC (Bld) [#/Vol]4.76 10*6/uLNormal3.95-5.11 The Metro[facility] SystemComment on above:Performed By: #### CBC, BMP #### [address] [address] Product Safety Specialist: DIEGO Capellan (Bld) [#/Vol]14.3 10*3/uLHigh3.5-11.3MJohn C. Fremont HospitalComment on above:Performed By: #### CBC, BMP #### [facility] [employer] [address] [place] [address] Product Safety Specialist: NIDIA Capellan without Diffon 80-16-4058Cwldoapxdng distribution width (RBC) [Ratio]14.6 %High11.8 - 14.4 %[place], [place] Hematocrit (Bld) [Volume fraction]42.5 %36.3 - 47.1 %[place], [place] Hemoglobin (Bld) [Mass/Vol]12.8 g/dL11.9 - 15.1 g/dLAlpine, [place] Interpretation and review of laboratory resultsAbnormalBellevue HospitalH (RBC) [Entitic mass]26.9 pg25.2 - 33.5 pgAlpine, KYMCHC (RBC) [Mass/Vol]30.1 g/dL28.4 - 34.8 g/dLAlpine, KYMCV (RBC) [Entitic vol] 89.3 fL82.6 - 102.9 fLAlpine, KYPlatelet mean volume (Bld) [Entitic vol]8.4 fL8.1 - 13.5 fLAlpine, KYPlatelets (Bld) [#/Vol]300 10*3/uL [place], KYRBC (Bld) [#/Vol]4.76 10*6/uL3.95 - 5.11 m/uLAl[place], KYWBC (Bld) [#/Vol]14.3 10*3/uLHighAlpine, KYWBC (Bld) [#/Vol]0.0 10*3/uL0.0 per 100 WBCAlpine, KYSurgical Pathologyon 05-06-2020 Surgical Pathology(NOTE) -- Diagnosis [...] with no areas of granularity or masses. Project Account Manager sections 1cs. tm Microscopic Description Sections of gastric mucosa show increased lymphocytes and plasma cells in the lamina propria. There is no evidence of acute inflammation, intestinal metaplasia or dysplasia. There is no evidence of organisms suspicious for Helicobacter with the routine BRI stains. SURGICAL PATHOLOGY CONSULTATION Patient Name: JAZ SANDERS [facility] Rec: [id number] Path Number: [id number] [facility] ANATOMIC PATHOLOGY [address] [place] [phone] NoOhio State Health SystemComment on above: Performed By: #### CBC, PT, PTT, BMP #### [facility] [employer] [address] [place] [address] [phone] Product Safety Specialist: Casey Marques MD #### ANICOT #### [facility] [address] [place] [address] Product Safety Specialist: YU WardCoV-2on 12-78-5376FVBY-CoV-2NLicking Memorial HospitalComment on above:Performed By: #### COVID #### [address] [phone] Product Safety Specialist: Tracie Capellan2Not DetectedNoalNOTDECleveland Clinic FoundationComment on above:Result Comment: The specimen is NEGATIVE [...] this assay. Fact sheet for Healthcare Providers: https://www.fda.gov/media/057556/download Fact sheet for Patients: https://www.fda.gov/media/324980/download METHODOLOGY: RT-PCRPerformed By: #### COVID #### [facility] [address] [place] [address] Product Safety Specialist: YU CapellanCoV-2,[facility] Comment on above:Performed By: #### COVID #### [facility] [address] [place] [address] Product Safety Specialist: YU CapellanCoV-2on 99-79-6508QXGJ-CoV-2 Source .NASOPHARYNGEAL SWABBrecksville VA / Crille HospitalComment on above:Performed By: #### COVID #### [facility] [employer] [address] [place] [address] Product Safety Specialist: Ilana Capellan [id number]-ES-Jsbudwce<2NKettering Health HamiltonComment on above:Performed By: #### CBC, PT, PTT, BMP #### [facility] [address] [place] [address] Product Safety Specialist: Casey Marques MD #### ANICOT #### [facility] [address] [place], [place] [id number] Product Safety Specialist: Ariella Ward<2NormalThe [facility]health System Comment on above:Performed By: #### CBC, PT, PTT, BMP #### [facility] [address] [place] [address] Product Safety Specialist: Casey Marques MD #### ANICOT #### [facility] [address] [place], [place] [id number] Product Safety Specialist: Jaja Wardotine<2NormalThe [facility]health System Comment on above:Result Comment: (NOTE) Consistent with [...] positive. Test developed and characteristics determined by [facility]. See Compliance Statement B: [employer]/CS Performed By: [facility] [address] [place] [address] Hand Winder: VERONICA Barerformed By: #### CBC, PT, PTT, BMP #### [employer] [facility] [place] [address] Product Safety Specialist: Casey Marques MD #### ANICOT #### [facility] [address] [place] [address] Product Safety Specialist: Shani WardWestern State Hospital [address]-GK-Jnzwpzvu<2ng/mL [facility]- [place], KYCotinine<2ng/mLMerBlekko Health- [place], KYNicotine<2ng/mLMercy Health- [place], KYComment on [...] positive. Test developed and characteristics determined by [facility]. See Compliance Statement B: [employer]/CS Performed By: [facility] [address] [place] [address] Hand Winder: Lynn Layne MD EKG 12 Leadon 05-69-2819Gjmram Zrgz15KKRXcisrUC Health, KYP Lsmm34fgnhrriJudfu Health- [place], KYP-R Frotkatl135 [facility] [place], KYQ-T Pdfecion023 [facility], KYQRS Dfjiengs90 [facility] [place], KYQTc Calculation (Tamelatt)500 [facility], KYR Dvwr55wpifirxDebwz Health- [place], KYT Goaz52fwmbgrjPagia Health- [place], KYVentricular Rtiw92YGDCleqo Health- [place], KYNormal sinus rhythm with sinus arrhythmia Prolonged QT Abnormal ECG No previous ECGs availableChillicothe VA Medical Center, [place] Carrillo Incoming Ekg Results From [facility] - 04/23/2020 12:32 PM EST Normal sinus rhythm with sinus arrhythmia Prolonged QT Abnormal ECG No previous ECGs availableChillicothe VA Medical Center, NJAPTPrescott Va Medical Center [id number] Coag (Bld) [Time]22.2 iAzbjfh09.5-30.5The Metrohealth SystemComment on above: Result Comment: IV Heparin Therapy Range: 48.6-77.8Performed By: #### CBC, PT, PTT, BMP #### [employer] [address] [place] [address] Product Safety Specialist: Casey Marques MD #### ANICOT #### [facility] [address] [place] [address] Product Safety Specialist: Adolph Diaz MDaPTGino Coag (Bld) [Time]22.2 [facility], [place] Comment on above: IV Heparin Therapy Range: 48.6-77.8 Basic Metabolic Panelon 61-41-9482Gqbfb gap [Moles/Vol]12 mmol/L9 - 17 mmol/L [facility], KYBun/Cre RatioNOT REPORTEDChillicothe VA [facility], KYCalcium [Mass/Vol]9.2 mg/dL8.6 - 10.4 mg/dLChillicothe VA Medical Center, KYChloride [Moles/Vol]104 mmol/L98 - 107 mmol/LMLouis Stokes Cleveland VA [facility] Center, KYCO2 [Moles/Vol]23 mmol/L20 - 31 mmol/L [facility], KYCreatinine [Mass/Vol]0.69 mg/dL0.5 - 0.9 mg/dLChillicothe VA Medical Center, KYGFR >60>60 mL/minChillicothe VA Medical Center, KYGFR Non->60>60 mL/minChillicothe VA Medical Center, KYGFR/1.73 sq M predicted among non- blacks MDRD (S/P/Bld) [Vol rate/Area]NOT REPORTEDChillicothe VA Medical Center, KYGFR/1.73 sq M predicted among non-blacks MDRD (S/P/Bld) [Vol rate/Area][facility], [place] Comment on above:Average GFR for 20-29 years old: 116 mL/min/1.73sq m Chronic Kidney Disease: <60 mL/min/1.73sq m Kidney failure: <15 mL/min/1.73sq m eGFR calculated using average adult body mass. Additional eGFR calculator available at: http://www.[employer]/multiple_crcl_2011.htm Glucose [Mass/Vol]123 mg/rKNeep29 - 99 mg/dLChillicothe VA Medical Center, KYInterpretation and review of laboratory resultsAbnormalChillicothe VA Medical Center, KYPotassium [Moles/Vol]4.1 mmol/L3.7 - 5.3 mmol/LMLouis Stokes Cleveland [facility], KYSodium [Moles/Vol]139 mmol/L135 - 144 mmol/LMLouis Stokes Cleveland [facility], KYUrea nitrogen [Mass/Vol]7 mg/dL6 - 20 mg/dLChillicothe VA Medical Center, KYBasic Metabolic Profon 04-22-2020(cont.)NormalThe Metrohealth SystemComment on above:Result Comment: Average GFR for 20-29 years old: 116 mL/min/1.73sq m Chronic Kidney Disease: <60 mL/min/1.73sq m Kidney failure: <15 mL/min/1.73sq m eGFR calculated using average adult body mass. Additional eGFR calculator available at: http://www.[employer]/multiple_crcl_2012.htmPerformed By: #### CBC, PT, PTT, BMP #### [employer] [address] [place] [address] Product Safety Specialist: Casey Marques MD #### ANICOT #### [facility] [address] [place] [address] Product Safety Specialist: Dontae Ward gap [Moles/Vol]12 mmol/LNormal9-17The Metrohealth SystemComment on above:Performed By: #### CBC, PT, PTT, BMP #### [address] [address] Product Safety Specialist: Casey Marques MD #### ANICOT #### [address] [address] Product Safety Specialist: XIN Wardalcium [Mass/Vol]9.2 mg/dLNormal8.6-10.4The Metrohealth SystemComment on above:Performed By: #### CBC, PT, PTT, BMP #### [address] [address] Product Safety Specialist: Casey Marques MD #### ANICOT #### [facility] [address] [place] [address] Product Safety Specialist: XIN Wardhloride [Moles/Vol]104 mmol/WUssvhu90-935QldzwThe Metrohealth SystemComment on above:Performed By: #### CBC, PT, PTT, BMP #### [employer] [address] [place] [address] Product Safety Specialist: Casey Marques MD #### ANICOT #### [facility] [address] [place] [address] Product Safety Specialist: XIN WardO2 [Moles/Vol]23 mmol/VBzmtkh67-76FzpodThe Metrohealth SystemComment on above:Performed By: #### CBC, PT, PTT, BMP #### [facility] [address] [place] [address] Product Safety Specialist: Casey Marques MD #### ANICOT #### [facility] [address] [place] [address] Product Safety Specialist: XIN Wardreatinine [Mass/Vol]0.69 mg/dLNormal0.50-0.90 The Metrohealth SystemComment on above:Performed By: #### CBC, PT, PTT, BMP #### [facility] [address] [place] [address] Product Safety Specialist: Casey Marques MD #### ANICOT #### [facility] [address] [place], [place] [id number] Product Safety Specialist: Adolph Diaz MDGFR, Amer>60Normal>60The Metrohealth SystemComment on above:Performed By: #### CBC, PT, PTT, BMP #### [facility] [address] [place] [address] Product Safety Specialist: Casey Marques MD #### ANICOT #### [facility] [address] [place] [address] Product Safety Specialist: Adolph Diaz MDGFR,non Amer>60Normal>60The Metrohealth SystemComment on above:Performed By: #### CBC, PT, PTT, BMP #### [facility] [address] [place] [address] Product Safety Specialist: Casey Marques MD #### ANICOT #### [facility] [address] [place] [address] Product Safety Specialist: Adolph Diaz MDGlucose [Mass/Vol]123 mg/kFMngk24-41PusajJohn C. Fremont HospitalComment on above:Performed By: #### CBC, PT, PTT, BMP #### [address] [address] Product Safety Specialist: Casey Marques MD #### ANICOT #### [facility] [address] [place] [address] Product Safety Specialist: VERONICA Wardotassium [Moles/Vol]4.1 mmol/LNormal3.7-5.3MJohn C. Fremont HospitalComment on above:Performed By: #### CBC, PT, PTT, BMP #### [address] [address] Product Safety Specialist: Casey Mraques MD #### ANICOT #### [address] [address] Product Safety Specialist: JACINTO Wardodium [Moles/Vol]139 mmol/QRcxnkh611-462YrhtwThe Metrohealth SystemComment on above:Performed By: #### CBC, PT, PTT, BMP #### [address] [address] Product Safety Specialist: Casey Marques MD #### ANICOT #### [facility] [address] [place] [address] Product Safety Specialist: Adolph Diaz MDUrea nitrogen [Mass/Vol]7 mg/dLNormal6-20The Metro[facility] SystemComment on above:Performed By: #### CBC, PT, PTT, BMP #### [address] [address] Product Safety Specialist: Casey Marques MD #### ANICOT #### [facility] [address] Product Safety Specialist: Adolph Diaz MDBUTanja/CRE RatioNOT REPORTEDNohighlands-cashiers hospital20The Metrohealth SystemComment on above:Performed By: #### CBC, PT, PTT, BMP #### [facility] [address] [place] [address] Product Safety Specialist: Casey Marques MD #### ANICOT #### [facility] [address] [place] [address] Product Safety Specialist: JACINTO Wardtaging:NOT REPORTEDNoalThe Metrohealth SystemComment on above:Performed By: #### CBC, PT, PTT, BMP #### [facility] [address] [place] [address] Product Safety Specialist: Casey Marques MD #### ANICOT #### [facility] [address] [place] [address] Product Safety Specialist: XIN Wardmanisha 47-91-5704Xzrroxotnak distribution width (RBC) [Ratio]14.6 %High11.8-14.4The Metro[facility] SystemComment on above:Performed By: #### CBC, PT, PTT, BMP #### [facility] [address] [address] Product Safety Specialist: Casey Marques MD #### ANICOT #### [facility] [address] [place] [address] Product Safety Specialist: Adolph Diaz MDHematocrit (Bld) [Volume fraction]40.8 %Normal 36.3-47.1[facility] ClearlakeComment on above:Performed By: #### CBC, PT, PTT, BMP #### [facility] [address] [address] Product Safety Specialist: Casey Marques MD #### ANICOT #### [facility] [address] [place], [place] [id number] Product Safety Specialist: Adolph Diaz MDHemoglobin (Bld) [Mass/Vol]12.8 g/dLNormal 11.9-15.1MJohn C. Fremont HospitalComment on above:Performed By: #### CBC, PT, PTT, BMP #### [address] [phone] Product Safety Specialist: Casey Marques MD #### ANICOT #### [facility] [address] [place], [place] [id number] Product Safety Specialist: YESSICA WardCH (RBC) [Entitic mass]26.5 bsTtqoic24.2-33.5 The Metro[facility] SystemComment on above:Performed By: #### CBC, PT, PTT, BMP #### [address] [address] Product Safety Specialist: Casey Marques MD #### ANICOT #### [facility] [address] [place], [place] [address] Product Safety Specialist: NIMCO WardC (RBC) [Mass/Vol]31.4 g/pSUlgvrq56.4-34.8 The Metro[facility] SystemComment on above:Performed By: #### CBC, PT, PTT, BMP #### [address] [id number] Product Safety Specialist: Casey Marques MD #### ANICOT #### [facility] [address] [place], [place] [id number] Product Safety Specialist: YESSICA WardCV (RBC) [Entitic vol]84.5 rQDdgdyg20.6-102.9 The Metro[facility] SystemComment on above:Performed By: #### CBC, PT, PTT, BMP #### [address] [address] Product Safety Specialist: Casey Marques MD #### ANICOT #### [facility] [address] [place] [address] Product Safety Specialist: Adolph Diaz MDNRBC Automated0.0 per 100 WBCNormal0.0The Metro[facility] SystemComment on above:Performed By: #### CBC, PT, PTT, BMP #### [facility] [address] [place] [address] Product Safety Specialist: Casey Marques MD #### ANICOT #### [facility] [address] [place] [address] Product Safety Specialist: Stephan Ward mean volume (Bld) [Entitic vol]8.7 fL Normal8.1-13.5The Metro[facility] SystemComment on above:Performed By: #### CBC, PT, PTT, BMP #### [place] [address] Product Safety Specialist: Casey Marques MD #### ANICOT #### [facility] [address] [place] [address] Product Safety Specialist: Yajaira Ward (Bld) [#/Vol]298 10*3/lJXgkxjw211-131 The Metro[facility] SystemComment on above:Performed By: #### CBC, PT, PTT, BMP #### [place] [address] Product Safety Specialist: Casey Marques MD #### ANICOT #### [facility] [address] [place] [address] Product Safety Specialist: RAYMON Ward (Bld) [#/Vol]4.83 10*6/uLNormal3.95-5.11The Metro[facility] SystemComment on above:Performed By: #### CBC, PT, PTT, BMP #### [place] [id number] Product Safety Specialist: Casey Marques MD #### ANICOT #### [facility] [address] [place] [address] Product Safety Specialist: Adolph Diaz MDWBC (Bld) [#/Vol]10.8 10*3/uLNormal3.5-11.3[facility] ClearlakeComment on above:Performed By: #### CBC, PT, PTT, BMP #### [facility] [address] [place], [place] 55[address] Product Safety Specialist: Casey Marques MD #### ANICOT #### [facility] [address] [place] [address] Product Safety Specialist: Adolph Diaz MDErythrocyte distribution width (RBC) [Ratio]14.6 %High11.8 - 14.4 %[facility], NJHematocrit (Bld) [Volume fraction]40.8 % 36.3 - 47.1 %[facility], NJHemoglobin (Bld) [Mass/Vol]12.8 g/dL11.9 - 15.1 g/dLChillicothe VA [facility], NJInterpretation and review of laboratory resultsAbnormal [facility], AMERICAN HOSPITAL ASSOCIATIONH (RBC) [Entitic mass]26.5 pg25.2 - 33.5 pgChillicothe VA [facility], [facility] ASSOCIATIONHC (RBC) [Mass/Vol]31.4 g/dL28.4 - 34.8 g/dLChillicothe VA [facility], AMERICAN HOSPITAL ASSOCIATIONV (RBC) [Entitic vol]84.5 fL82.6 - 102.9 fLParkwood Hospital- [place], [place]Platelet mean volume (Bld) [Entitic vol]8.7 fL8.1 - 13.5 fLParkwood Hospital- [place], [place]Platelets (Bld) [#/Vol]298 10*3/uLParkwood Hospital- [place], KYRBC (Bld) [#/Vol]4.83 10*6/uL3.95 - 5.11 m/[facility]- [place], KYWBC (Bld) [#/Vol]10.8 10*3/uLChillicothe VA Medical CenterNORMAWBC (Bld) [#/Vol]0.0 10*3/uL0.0 per 100 WBCChillicothe VA Medical CenterHectoron [id number] acute cardiopulmonary findingsChillicothe VA Medical CenterNORMAEXAMINATION: TWO XRAY VIEWS OF THE CHEST 04/22/2020 2:46 pm COMPARISON: Baseline examination HISTORY:ORDERING SYSTEM PROVIDED HISTORY: preop gastric bypass [employer] TECHNOLOGIST PROVIDED HISTORY: preop gastric bypass Ben En Y Reason for Exam: preop gastric bypass FINDINGS: Normal cardiopericardialsilhouette There are no significant pleural, parenchymal, mediastinal or osseous findingsChillicothe VA Medical CenterNORMASilver [place] Incoming Radiant Results From [employer] - 04/22/2020 3:28 PM EST EXAMINATION: TWO XRAY VIEWS OF THE CHEST 04/22/2020 2:46 pm COMPARISON: Baseline examination HISTORY: ORDERING SYSTEM PROVIDED HISTORY: preop gastric bypass Ben [employer] TECHNOLOGIST PROVIDED HISTORY: preop gastric bypass Ben En Y Reason for Exam: preop gastric bypass FINDINGS: Normal cardiopericardial silhouette There are no significant pleural, parenchymal, mediastinal or osseous findings IMPRESSION: No acute cardiopulmonary findings [facility] CenterEricka [id number] Coag (PPP) [Relative time]0.9 {INR}Normal [facility] SystemComment on above:Result Comment: Therapeutic Range: Moderate Anticoagulant Intensity: INR = 2.0-3.0 High Anticoagulant Intensity: INR = 2.5-3.5Performed By: #### CBC, PT, PTT, BMP #### [facility] [address], [place] [id number] Product Safety Specialist: Casey Marques MD #### ANICOT #### [facility] [address] [place] [address] Product Safety Specialist: CULLEN Ward Coag (PPP) [Time]9.3 sNormal9.0-12.0The Metrohealth SystemComment on above:Performed By: #### CBC, PT, PTT, BMP #### [facility] [address] [place] [address] Product Safety Specialist: Casey Marques MD #### ANALI #### [facility] [address] [place] [address] Product Safety Specialist: VERONICA Wardrotime-INRon [id number] Coag (PPP) [Relative time]0.9 {INR}[facility], NORMAComcorewell health [facility] on above: Therapeutic Range: Moderate Anticoagulant Intensity: INR = 2.0-3.0 High Anticoagulant Intensity: INR = 2.5-3.5 PT Coag (PPP) [Time]9.3 sMmccullough-hyde [facility] [place], [place]XR CHEST (2 VW)on [id number] CHEST (2 VW)EXAMINATION: TWO XRAY VIEWS OF [...] Signed by: Roxanne Avitia MD 04/22/20 Final resultNoOhio State Health System Vital Signs Date TimeVital SignValuePerforming QfzzkfdvnAwtwypkh85-07-8718 13:26-0500Body mass index (BMI) [Ratio]40.03 kg/k0Biaqs Juan DO Work Phone: [facility] CenterAdxziwqpoc84-07-6002 13:26-0500Body owttgm064.18 kgCorey Juan DO Work Phone: [facility] CenterThiphmypeo95-10-3025 13:26-0500Diastolic blood lwppuxid77 mm[Hg]Les Juan DO Work Phone: [facility] CenterTzoqlkasyk99-45-5717 13:26-0500Systolic blood yclrulmw859 mm[Hg]Les Juan DO Work Phone: [facility] CenterXewooqulkw75-47-1411 14:43-0400Body mass index (BMI) [Ratio]39.77 kg/m2Amy Iaeger PA Work Phone: [phone]-[facility] CenterBnxejcxmgg68-35-2023 14:43-0400Body iicijm027.33 kgAmy Iaeger PA Work Phone: [facility] CenterMlzvmgqgbp49-89-0985 14:43-0400Diastolic blood jvbemcpj81 mm[Hg]Jojo Ames PA Work Phone: [phone]-[facility] CenterOiwzaobsyu84-58-7307 14:43-0400Systolic blood lllivlcm585 mm[Hg]Jojo Pelaezey PA Work Phone: [phone] [place], [place] [address]Qxhczhqdld23-66-3973 11:34-0400Body mass index (BMI) [Ratio]38.49 kg/r9WjyuvrklMima Duenas TILE DITCHER Work Phone: [phone]-[facility] CenterFudfzkylvx11-70-9789 11:34-0400Body rautjj940.19 kgMima Duenas TILE DITCHER Work Phone: [phone] [place], [place] [address]Gruuybtoyb57-45-5638 11:34-0400Diastolic blood xiogufbb08 mm[Hg]Mima Duenas TILE DITCHER Work Phone: [phone] [place], [place] [address]Gtkhmhxeay40-33-4545 11:34-0400Systolic blood hasscmgq524 mm[Hg]Mima Duenas TILE DITCHER Work Phone: [phone] [place], [place] [address]Avutcpmdxs68-17-9812 10:01-0400Body mass index (BMI) [Ratio]36.79 kg/m2Amy Kwaku PA Work Phone: [phone] [place], [place] [address]Tfhsdtprqt86-46-3731 10:01-0400Body czhyqu747.66 kgAmy Kwaku PA Work Phone: [phone] [place], [place] [address]Dtmjbahqhh92-80-0792 10:01-0400Diastolic blood muynhuwk04 mm[Hg]Jojo Ames PA Work Phone: [phone] [place], [place] [address]Dqxfbtmorf08-57-1250 10:01-0400Systolic blood teruftvr764 mm[Hg]Jojo Ames PA Work Phone: [phone] [place], [place] [address]Nvhiklygjz83-22-1279 12:46-0400Body nkpzjo492.3 cmEnrike Lindquist MD Work Phone: [phone] [place], [place] 2437008-20-2025 12:46-0400Body mass index (BMI) [Ratio]35.84 kg/g6NxzbudseEnrike Lindquist MD Work Phone: [phone])[address] [place], [place] 2437008-20-2025 12:46-0400Body vvpadx101.57 kgEnrike Lindquist MD Work Phone: [phone])[address] [place], [place] 2437008-20-2025 12:46-0400Diastolic blood zdahfamv26 mm[Hg]Enrike Lindquist MD Work Phone: [phone] [place], [place] 2437008-20-2025 12:46-0400Heart rate 73 /minEnrike Lindquist MD Work Phone: [phone] [place], [place] 2437008-20-2025 12:46-0400Systolic blood garnhjiy48 mm[Hg]Enrike Lindquist MD Work Phone: [phone])[address] [place], [place] 2437008-17-2025 23:35-0400Body cvodde930.34 cmAmanda Shethrbacher DRY CANS OPERATOR Work Phone: [facility]08-17-2025 23:35-0400 Body zrfnsrcmzii85.2 [degF]Amanda Ford DRY CANS OPERATOR Work Phone: [facility]08-17-2025 23:35-0400 Body tklmep824.66 kgAmanda Shethrbacher DRY CANS OPERATOR Work Phone: [facility]08-17-2025 23:35-0400 Diastolic blood mm[Hg]Amanda Ford DRY CANS OPERATOR Work Phone: [facility]08-17-2025 23:35-0400 Heart rate75 /minArtemionnedmundo Shethrbacher DRY CANS OPERATOR Work Phone: [facility]08-17-2025 23:35-0400 Respiratory rate16 /minAmanda Shethrbacher DRY CANS OPERATOR Work Phone: [facility]08-17-2025 23:35-0400 SaO2% (BldA) [Mass fraction]97 %Amanda Ford DRY CANS OPERATOR Work Phone: [facility]08-17-2025 23:35-0400 Systolic blood bydsrixd309 mm[Hg]Amanda Hahnnikkie DRY CANS OPERATOR Work Phone: [facility]08-05-2025 10:37-0400 Body sqmaex221.1216 kgAmanda Ford DRY CANS OPERATOR Work Phone: [facility]08-05-2025 09:10-0400 Body mass index (BMI) [Ratio]35.7 kg/k1Xuots Juan DO Work Phone: [facility] CenterLdrrbvhana04-04-1145 09:10-0400Body .12 kgCorey Juan DO Work Phone: [facility] CenterSbhxzcrghh73-08-9866 09:10-0400Diastolic blood vfvhawdv02 mm[Hg]Les Juan DO Work Phone: [facility] CenterWiclozrdgz28-61-3952 09:10-0400Systolic blood mm[Hg]Les Juan DO Work Phone: [facility] CenterPotfdmkpej55-39-8263 11:28-0400Body mass index (BMI) [Ratio]31.24 kg/r9Zrcfy Juan DO Work Phone: [facility] CenterEkqxvzizlk13-65-3652 11:28-0400Body zicjyq531.61 kgCorey Juan DO Work Phone: [facility] CenterAvvpqnwfjv29-78-2769 11:28-0400Diastolic blood ziziewcl47 mm[Hg]Les Juan DO Work Phone: [facility] CenterVlgkrnhuxx42-52-7879 11:28-0400Systolic blood wubcbinl796 mm[Hg]Les Juan DO Work Phone: [facility] CenterEhabzrokpw01-30-0572 13:34-0400Diastolic blood mpbptukq71 mm[Hg]Amanda Logan DRY CANS OPERATOR Work Phone: [facility]07-03-2025 13:34-0400 Heart rate60 /Juan Pablo Logan DRY CANS OPERATOR Work Phone: [phone]07-03-2025 13:34-0400 Respiratory rate18 /Jhonnyaicha Ford DRY CANS OPERATOR Work Phone: [phone]07-03-2025 13:34-0400 SaO2% (BldA) [Mass fraction]99 %Amanda Logan DRY CANS OPERATOR Work Phone: [phone]07-03-2025 13:34-0400 Systolic blood ybwoqkbm324 mm[Hg]Amanda Shethbilly DRY CANS OPERATOR Work Phone: [phone])758-[address] [place], [place] 3739107-03-2025 10:38-0400 Body xhxduf355.34 cmAmanda Shethbilly DRY CANS OPERATOR Work Phone: [phone]07-03-2025 10:38-0400 Body poogotmvzdx39.1 [degF]Amanda Shethbilly DRY CANS OPERATOR Work Phone: [phone]07-03-2025 10:38-0400 Body rvszah675.85 kgAmanda Shethbilly DRY CANS OPERATOR Work Phone: [phone]06-05-2025 15:06-0400 Body mass index (BMI) [Ratio]31.24 kg/m2[facility]06-05-2025 15:06-0400Body pywpct767.61 kgSt. [facility]06-05-2025 15:06-0400 Diastolic blood rqayruwf61 mm[Hg][facility]06-05-2025 15:06-0400 Systolic blood pwauehlm997 mm[Hg][facility]05-07-2025 10:04-0400 Body .3 Kam Sinclair MD Work Phone: [phone]05-07-2025 10:04-0400Body mass index (BMI) [Ratio]29.99 kg/m1HeqbvDarleen Sinclair MD Work Phone: [phone] [place], [place] 0115105-07-2025 10:04-0400Body aymlfe52.52 kgDarleen Sinclair MD Work Phone: [phone] [place], [place] 0115105-07-2025 10:04-0400Diastolic blood huuuuial13 mm[Hg]Darleen Sinclair MD Work Phone: [phone] [place], [place] 0115105-07-2025 10:04-0400Heart rate67 /min Darleen Sinclair MD Work Phone: [phone] [place], [place] 0115105-07-2025 10:04-0400Respiratory rate16 /minDarleen Sinclair MD Work Phone: [phone] [place], [place] 0115105-07-2025 10:04-0242MlO5% (BldA) [Mass fraction]99 %Darleen Sinclair MD Work Phone: [phone])[address] [place], [place] 0115105-07-2025 10:04-0400Systolic blood llurjyhr165 mm[Hg]Darleen Sinclair MD Work Phone: [phone])[address] [place], [place] 0115101-09-2025 08:32-0500Body jjciel081.34 [facility]Ke[facility]01-09-2025 08:32-0500Body mass index (BMI) [Ratio]30.4 kg/w9EbgdpmgemKeenan Private Hospital01-09-2025 08:32-0500Body reitpxydzxe52.3 [degF][facility]01-09-2025 08:32-0500Body gleckz44.99 kgKe[facility] Hospital01-09-2025 08:32-0500Diastolic blood jweuggpb40 mm[Hg][facility]01-09-2025 08:32-0500 Heart rate73 /minKeenan Private Hospital01-09-2025 08:32-4603AsC6% (BldA) [Mass fraction]98 %[facility]01-09-2025 08:32-0500 Systolic blood eanmwlnq795 mm[Hg][facility]11-12-2024 14:03-0500Body odqevw474.3 cmIgnacio Guy MD Work Phone: [phone] CenterMfoxps91-24-2983 14:03-0500Body mass index (BMI) [Ratio]30.23 kg/b5AdknuaIgnacio Guy MD Work Phone: [facility] Behgrq96-92-7701 14:03-0500Body .3 kgIgnacio Guy MD Work Phone: [facility] Knfoml92-69-6898 15:12-0500Body mass index (BMI) [Ratio]31.71 kg/l2Zhnfq Juan DO Work Phone: [facility] CenterIwgwbeuvuk85-26-6834 15:12-0500Body thhlyy109.25 kgCorey Juan DO Work Phone: [facility] CenterNjshczzghj95-03-8140 15:12-0500Diastolic blood tyojfnfv90 mm[Hg]Les Juan DO Work Phone: [facility] CenterFansotunda63-10-1914 15:12-0500Systolic blood qwenagwj090 mm[Hg]Les Juan DO Work Phone: [facility] CenterOqzcyktxsd18-03-6666 11:46-0400Diastolic blood xcbkeltd64 mm[Hg]MELY Ford Work Phone: [facility]08-21-2024 11:46-0400 Heart rate76 /minAPRTanja Ford Work Phone: [facility]08-21-2024 11:46-0400 Respiratory rate16 /minAPRTanja Ford Work Phone: [facility]08-21-2024 11:46-0400 SaO2% (BldA) [Mass fraction]99 %MELY Ford Work Phone: [facility]08-21-2024 11:46-0400 Systolic blood swacjina259 mm[Hg]MELY Ford Work Phone: [phone]08-21-2024 10:20-0400 Body xmocmbbafyd15 [degF]MELY Ford Work Phone: [phone]08-21-2024 09:55-0400 Inhaled oxygen flow rate3 L/minMELY Ford Work Phone: [phone]08-21-2024 06:29-0400 Body rjuvgm845.34 Justo Hahnr Work Phone: [phone])[address]08-21-2024 06:29-0400 Body agijic92.25 kgMELY Hahnr Work Phone: [phone])[address]07-16-2024 11:56-0400 Body .34 Justo Hahnr Work Phone: [phone])[address]07-16-2024 11:56-0400 Body mass index (BMI) [Ratio]28.8 kg/m2MELY Hahnr Work Phone: [phone]07-16-2024 11:56-0400 Body vbzpib68.89 kgMELY Hahnr Work Phone: 1([phone])661-[address] [place], [place] 3739102-21-2024 14:56-0500 Body .34 cmKe[facility] Hospital02-21-2024 14:56-0500Body mass index (BMI) [Ratio]29.4 kg/x6SggcqxsfkKeenan Private Hospital02-21-2024 14:56-0500Body zwoyuw33.7 kgKeenan Private Hospital02-21-2024 14:56-0500Diastolic blood lwgyepen53 mm[Hg][facility] 06-08-2023 14:56-0500Heart rate51 /minKeenan Private Hospital 06-08-2023 14:56-7963FjQ3% (BldA) [Mass fraction]98 %[facility]02-21-2024 14:56-0500Systolic blood yvnymxrq047 mm[Hg][facility]01-30-2024 14:30-0500Body uhrvao133.34 cmGuillepamela Millerley Other [facility]01-30-2024 14:30-0500 Body mass index (BMI) [Ratio]27.47 kg/o1WrakaRomeo Santana Other [facility] Other 01-30-2024 14:30-0500Body fsvouj41.36 kgGuillepamela Esther Other [facility] Other 01-30-2024 14:30-0500Body plextc87.35 kgKeenan [facility] Hospital10-23-2023 14:30-0400Body iuwwdc578.34 cmPetr Lay Other [facility] Other 10-23-2023 14:30-0400Body mass index (BMI) [Ratio] 27.61 kg/y5MnzugcePetr Lay Other [facility] Other 10-23-2023 14:30-0400Body wqpdfzahtqg82.1 [degF] Petr Lay Other [facility] Other 10-23-2023 14:30-0400Body dexjny00.81 kgPetr Lay Other [facility] Other 10-23-2023 14:30-0400Diastolic blood rsyuoybq15 mm[Hg] Petr Lay Other [facility] Other 10-23-2023 14:30-4224FfJ6% (BldA) [Mass fraction]99 % Petr Lay Other [facility] Other 10-23-2023 14:30-0400Systolic blood mdziuyew626 mm[Hg] Petr Lay Other [facility] Other 09-11-2023 11:30-0400Body epsbmz440.34 cmMajose guadalupe Lay Other [facility] Other 09-11-2023 11:30-0400Body mass index (BMI) [Ratio] 28.03 kg/q7WwercigPetr Lay Other [facility] Other 09-11-2023 11:30-0400Body szfhpy48.17 kgMajose guadalupe Lay Other [facility] Other 09-11-2023 11:30-0400Diastolic blood pvyclrky27 mm[Hg] Petr Lay Other [facility] Other 09-11-2023 11:30-0400Respiratory rate18 /minMattnany Lay Other [facility] Other 09-11-2023 11:30-0706TbL3% (BldA) [Mass fraction]99 % Petr Lay Other [facility] Other 09-11-2023 11:30-0400Systolic blood jmgjyhxm396 mm[Hg] Petr Lay Other [facility] Other 06-26-2023 13:30-0400Body .34 cmMajose guadalupe Lay Other [facility] Other 06-26-2023 13:30-0400Body mass index (BMI) [Ratio] 28.78 kg/f0LylzxbdPetr Lay Other [facility] Other 06-26-2023 13:30-0400Body qechad43.62 kgPetr Lay Other [facility] Other 06-26-2023 13:30-0400Diastolic blood agnkmevw13 mm[Hg] Petr Lay Other [facility] Other 06-26-2023 13:30-0400Respiratory rate18 /minPetr Lay Other [facility] Other 06-26-2023 13:30-8489OiH3% (BldA) [Mass fraction]98 % Petr Lay Other [facility] Other 06-26-2023 13:30-0400Systolic blood exfpcfer052 mm[Hg] Petr Lay Other [facility] Other 06-15-2023 08:00-0400Body xidkew532.34 cmJephamifer Merylrbacher Other [facility] Other 06-15-2023 08:00-0400Body mass index (BMI) [Ratio] 28.03 kg/z1Dniuofhd Rohrbacher Other [facility] Other 06-15-2023 08:00-0400Body pyvryz25.17 kgJephamifer Rohrbacher Other [facility] Other 06-15-2023 08:00-0400Diastolic blood mm[Hg] Amanda Rosarioacher Other [facility] Other 06-15-2023 08:00-2891KkB7% (BldA) [Mass fraction]95 % Amanda Jovanir Other [facility] Other 06-15-2023 08:00-0400Systolic blood rupidzrw006 mm[Hg] Amanda Jovanir Other [employer] Other 05-10-2023 15:30-0400Body olgidq852.34 cmAmanda Merylrbacher Other [employer] Other 05-10-2023 15:30-0400Body mass index (BMI) [Ratio] 29.15 kg/b4Xykcpixf Merylrbacher Other [employer] Other 05-10-2023 15:30-0400Body juhycn05.8 kgAmanda Merylrbacher Other [facility] Other 05-10-2023 15:30-0400Diastolic blood ljvxqvta73 mm[Hg] Amanda Rosarioacher Other [facility] Other 05-10-2023 15:30-0400Systolic blood mm[Hg] Amanda Merylrbacher Other [facility] Other 05-05-2023 11:00-0400Body .34 cmAmanda Shethrbacher Other [facility] Other 05-05-2023 11:00-0400Body mass index (BMI) [Ratio] 28.73 kg/c9LwhnlipdAmanda Ford Other [facility] Other 05-05-2023 11:00-0400Body .44 kgAmanda Ford Other [facility] Other 05-05-2023 11:00-0400Diastolic blood uiscihkf11 mm[Hg] Amanda Shethbilly Other [facility] Other 05-05-2023 11:00-3424VxQ0% (BldA) [Mass fraction]100 % Amanda Logan Other [facility] Other 05-05-2023 11:00-0400Systolic blood jfmmalog603 mm[Hg] Amanda Logan Other [facility] Other 02-24-2023 16:43-0500Body ayfesbsfwob47.1 [degF]MD Mariam Appiah Work Phone: [facility]02-24-2023 16:43-0500 Diastolic blood cvylzaxd22 mm[Hg]MD Mariam Appiah Work Phone: [facility]02-24-2023 16:43-0500 Heart rate60 /minMD Mariam Appiah Work Phone: [facility]02-24-2023 16:43-0500 Respiratory rate16 /minMD Mariam Appiah Work Phone: [facility]02-24-2023 16:43-0500 SaO2% (BldA) [Mass fraction]100 %MD Mariam Appiah Work Phone: 1(570)[address] [place], [place] 9060402-24-2023 16:43-0500 Systolic blood refxneqa869 mm[Hg]MD Mariam Appiah Work Phone: 1(370)[address] [place], [place] 9060402-24-2023 09:40-0500 Body ylwcsw333.34 cmMD Mariam Appiah Work Phone: 1(523)[address] [place], [place] 9060402-24-2023 05:42-0500 Body bjbsik63 kgMD Mariam Appiah Work Phone: 1(286)[address] [place], [place] 9060402-23-2023 17:55-0500 Body lcfvccqszar73.1 [degF]MD Mariam Appiah Work Phone: 1(356)[address] [place], [place] 9060402-23-2023 17:55-0500 Diastolic blood uncrqjof65 mm[Hg]MD Mariam Appiah Work Phone: 1(465)[address] [place], [place] 9060402-23-2023 17:55-0500 Heart rate62 /minMD Mariam Appiah Work Phone: 1(090)[address] [place], [place] 9060402-23-2023 17:55-0500 Respiratory rate18 /minMD Mariam Appiah Work Phone: 1(842)[address] [place], [place] 9060402-23-2023 17:55-0500 SaO2% (BldA) [Mass fraction]100 %MD Mariam Appiah Work Phone: 1(917)[address] [place], [place] 9060402-23-2023 17:55-0500 Systolic blood mm[Hg]MD Mariam Appiah Work Phone: 1(752)[address] [place], [place] 9060402-23-2023 14:22-0500 Body nuhgfe443.34 cmMD Mariam Appiah Work Phone: 1(681)[address] [place], [place] 9060402-23-2023 14:22-0500 Body spnyqj73.7 kgMD Mariam Appiah Work Phone: 1(141)[address] [place], [place] 9060401-04-2023 15:00-0500 Body uvztvw633.34 cmAmanda Ponceacher Other [facility] Other 01-04-2023 15:00-0500Body mass index (BMI) [Ratio] 27.81 kg/e2LtmcjpiwAmanda Shethiblly Other [facility] Other 01-04-2023 15:00-0500Body rajxvghgclc22.2 [degF] Amanda Logan Other [facility] Other 01-04-2023 15:00-0500Body hsrqza00.45 kgAmanda Shethsarahachenikkie Other [facility] Other 01-04-2023 15:00-0500Diastolic blood htpnvydu48 mm[Hg] Amanda Logan Other [facility] Other 01-04-2023 15:00-0500Respiratory rate18 /minAmanda Shethbilly Other [facility] Other 01-04-2023 15:00-4827TaD3% (BldA) [Mass fraction]99 % Amandarufino Ford Other [facility] Other 01-04-2023 15:00-0500Systolic blood mm[Hg] Amanda Ford Other [facility] Other 12-24-2022 21:41-0500Diastolic blood xsdifhwf18 mm[Hg] MD Mariam Appiah Work Phone: [facility]12-24-2022 21:41-0500 Systolic blood mm[Hg]MD Mariam Appiah Work Phone: 1(054)[address] [place], [place] 9060412-24-2022 18:14-0500 Body nrilqv232.34 cmMD Mariam Appiah Work Phone: 1(654)[address] [place], [place] 9060412-24-2022 18:14-0500 Body .1 [degF]MD Mariam Appiah Work Phone: 1(609)[address] [place], [place] 9060412-24-2022 18:14-0500 Body kgMD Mariam Appiah Work Phone: 1(067)[address] [place], [place] 9060412-24-2022 18:14-0500 Heart auwo264 /minMD Mariam Appiah Work Phone: 1(960)[address] [place], [place] 9060412-24-2022 18:14-0500 Respiratory rate18 /minMD Mariam Appiah Work Phone: 1(836)[address] [place], [place] 9060412-24-2022 18:14-0500 SaO2% (BldA) [Mass fraction]100 %MD Mariam Appiah Work Phone: 1(770)[address] [place], [place] 9060412-22-2022 17:15-0500 Body vlrnwaplonm10.5 [degF]MD Mariam Appiah Work Phone: 1(284)[address] [place], [place] 9060412-22-2022 17:15-0500 Diastolic blood mm[Hg]MD Mariam Appiah Work Phone: 1(989)[address] [place], [place] 9060412-22-2022 17:15-0500 Heart rate59 /minMD Mariam Appiah Work Phone: 1(577)[address] [place], [place] 9060412-22-2022 17:15-0500 Respiratory rate18 /minMD Mariam Appiah Work Phone: 1(418)[address] [place], [place] 9060412-22-2022 17:15-0500 SaO2% (BldA) [Mass fraction]100 %MD Mariam Appiah Work Phone: 1(379)[address] [place] [address] Fvmlds93-60-0029 17:15-0500 Systolic blood rbqaycza357 mm[Hg]MD Mariam Appiah Work Phone: [facility]12-22-2022 14:33-0500 Body dxevws434.34 cmMD Mariam Appiah Work Phone: [facility]12-22-2022 14:33-0500 Body irtvid07.1 kgMD Mariam Appiah Work Phone: [facility]12-06-2022 15:30-0500 Body mtiwma786.34 cmAmanda Shethrbacher Other [facility] Other 12-06-2022 15:30-0500Body mass index (BMI) [Ratio] 27.05 kg/r2UwmotmjeAmanda Ponceacher Other [facility] Other 12-06-2022 15:30-0500Body ucayng01 kgJeaicha Merylrbacher Other [facility] Other 12-06-2022 15:30-0500Diastolic blood mugzkpfn60 mm[Hg] Amanda Ford Other [facility] Other 12-06-2022 15:30-5891BmP4% (BldA) [Mass fraction]98 % Amanda Ford Other [facility] Other 12-06-2022 15:30-0500Systolic blood smequxju033 mm[Hg] Amanda Ford Other [facility] Other 10-24-2022 10:00-0400Body lhadab095.34 cmAmanda Shethrbacher Other [facility] Other 10-24-2022 10:00-0400Body mass index (BMI) [Ratio] 27.47 kg/v9BoiiuryiAmanda Ford Other [facility] Other 10-24-2022 10:00-0400Body wanene49.36 kgAmanda Shethsarahangelnikkie Other [facility] Other 10-24-2022 10:00-0400Diastolic blood ujhmkoze78 mm[Hg] Amanda Logan Other [facility] Other 10-24-2022 10:00-0400Systolic blood lossxuas918 mm[Hg] Amanda Logan Other [place] [facility] Other 05-17-2022 14:38-0400Blood Pressure LocationSamir [facility]17[facility] 14:38-0400 Diastolic blood oiuicspp49 mm[Hg]Samir Thompson [facility]05-17-2022 14:38-0400Heart rate61 /minSamir Thompson [facility]05-17-2022 14:38-0400 Respiratory rate18 /minSamir Thompson [facility]05-17-2022 14:38-5106LlN3% (BldA) [Mass fraction]100 %Samir Thompson [facility]05-17-2022 14:38-0400 Systolic blood enoulhpt916 mm[Hg]Samir Thompson [facility]04-08-2022 14:39-0400Blood Pressure LocationSamir Thompson [facility]04-08-2022 14:39-0400 Diastolic blood fejevsnx57 mm[Hg]Samir Thompson [facility]04-08-2022 14:39-0400Heart rate65 /minRogean Jay [facility]04-08-2022 14:39-0400 Respiratory rate18 /minSamir [facility]04-08-2022 14:39-0398GvT0% (BldA) [Mass fraction]100 %Samir Thompson [facility]04-08-2022 14:39-0400 Systolic blood cyayrapj433 mm[Hg]Samir Thompson [facility]03-31-2022 11:00-0400Body qmddpy793.34 cmArtemioaicha Ponceachenikkie Other [facility] Other 03-31-2022 11:00-0400Body mass index (BMI) [Ratio] 29.15 kg/d7KytwzrmyAmanda Hahnr Other [facility] [employer] Other 03-31-2022 11:00-0400Body fhoejq27.8 kgAmanda Ponceacher Other [employer] Other 03-31-2022 11:00-0400Diastolic blood rqbswndo86 mm[Hg] Amanda Ford Other [employer] Other 03-31-2022 11:00-8437TyM5% (BldA) [Mass fraction]98 % Amanda Ford Other [employer] Other 03-31-2022 11:00-0400Systolic blood onhpemnm573 mm[Hg] Amanda Ford Other [employer] Other 01-21-2021 08:20-0500Body Bliexcvjjpx58.7 [degF] [facility], MA07-15-6479 08:20-0500BP Pathtrydg86 mm[Hg] [facility], UV96-29-8198 08:20-0500BP Kokwetju881 mm[Hg] [facility], VM54-23-1071 08:20-0500Pulse (Heart Rate)101 /minStoneCrest Medical Center, [place]86-13-9418 08:20-0500Pulse Zzrnzpgn46 % [facility], [place]21-52-8844 08:20-0500Respiratory Rate19 /min [facility], FQ08-85-9847 08:51-0500BMI (Body Mass Index) 58.86 kg/y0NgpnvodStoneCrest Medical Center, DZ57-39-8234 08:51-0500Body weight 191.42 kgStoneCrest Medical Center, YE80-95-5811 08:51-0123Obcobw174.3 cm [facility], AX32-49-9603 13:30-0500BMI (Body Mass Index) 61.79 kg/m2[address], YB38-73-4979 13:30-0500Body Oaxspiiwyit69.11 [degF][address], UI73-94-2891 13:30-0500Body nnccyy599.94 kgStvz 2 [facility], JD37-17-0583 13:30-0500BP Ywkbcxjyf90 mm[Hg][address], FQ18-07-4375 13:30-0500BP Fqexbgrm039 mm[Hg][address] [place] [address], OF77-14-9623 13:30-8059Gbojqt069.[address] [place] [address], AQ59-66-0998 13:30-0500Pulse (Heart Rate)104 /minStvz [address] [place] [address], KE25-33-5178 13:30-0500Pulse Qgfhcdtx52 %Stv[address] [place] [address], RC10-40-3202 13:30-0500 Respiratory Rate18 /minStvz [address] [place] [address], [place] Encounters Encounter DateEncounter TypeCare ProviderFacilityStart: 02-26-2025 End: 34-48-6310Cqswycvqm Result EncounterCorey Juan DO Work Phone: noms External Department UnsolicitedStart: 02-26-2025 End: 16-81-4835Clnvsebvf Result EncounterCorey Juan DO Work Phone: noms External Department UnsolicitedStart: 02-19-2025 End: 21-47-7135Zydpik flowsheetCorey Juan DO Work Phone: noms [facility]BGYNStart: 02-19-2025 End: 48-00-5357Oohuqk flowsheetCorey Juan DO Work Phone: noms [place] [facility]BGYNStart: 02-19-2025 End: 76-57-6916Iowulldoj Result EncounterCorey Juan DO Work Phone: noms External Department UnsolicitedStart: 02-19-2025 End: 99-11-4555xbmuugjibjYSRZS FAZIONot AvailableStart: 02-19-2025 End: 52-37-4389Mcthuw outpatient visit 15 minutesCorey Juan DO Work Phone: noms [place] OBGYNComment on above:Third trimester ([facility]); 31 weeks gestation of ([facility]); TSH (thyroid-stimulating hormone deficiency); H/O gastric sleeveStart: 02-07-2025 End: 43-97-3494YkgyzeMolly Whitaker Women's Services 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 [employer] Dipper - Emily JacksonComment on above:Hypothyroidism affecting in second trimester (Primary Dx); headache in second trimester; Previous gastric bypass affecting , antepartum; 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 ([facility])Start: 02-06-2025 End: 56-74-2225Yooobe outpatient visit 15 minutesJojo OGDEN Work Phone: NOMS [facility] OBGYNComment on above:Third trimester ([facility]); 29 weeks gestation of ([facility])Start: 02-06-2025 End: 76-75-1852bzhnltkrwtLCR RAMEYNot AvailableStart: 02-06-2025 End: 73-08-3722Egmher Shakeel OGDEN Work Phone: [facility] [place] [facility]BGYNStart: 02-06-2025 End: 26-49-6828Hcopfx Shakeel OGDEN Work Phone: [facility] [place] [facility]BGYNStart: 01-30-2025 End: 81-66-1496inuhsdtvdcKLUFNNRM TONYERMalgorzata AvailableStart: 01-16-2025 End: 28-24-4242Hbkzxm Eliecer Duenas TILE DITCHER Work Phone: [facility] [place] [facility]BGYNStart: 01-16-2025 End: 06-54-4647Cvodur Eliecer Duenas TILE DITCHER Work Phone: N[facility]BGYNStart: 01-16-2025 End: 68-47-6460Vywldp outpatient visit 15 minutesMima Duenas NP Work Phone: [facility] [place] OBGYNComment on above:26 weeks gestation of ([facility]); Second trimester ([facility]); TSH (thyroid-stimulating hormone deficiency)Start: 01-16-2025 End: 53-83-3221nhazqstjjrCYPJAQML EBERLYNot AvailableStart: 01-11-2025 End: 26-00-3043Rohrxuibr Result EncounterCorey Juan DO Work Phone: noms External Department UnsolicitedStart: 01-11-2025 End: 99-82-6918Vjqoaarij Result EncounterCorey Juan DO Work Phone: noms External Department UnsolicitedStart: 01-09-2025 End: 24-82-9786Hkjdiqcad Result EncounterAmy Kwaku OGDEN Work Phone: noms External Department UnsolicitedStart: 01-09-2025 End: 30-31-7280Vxpxncwcs Result EncounterAmy Kwaku OGDEN Work Phone: noms External Department UnsolicitedStart: 01-04-2025 End: 84-39-4646Itnnex Rosanna Dick RNMaternal- Medicine at [facility] GeneralComment on above:Previous gastric bypass affecting , antepartum (Primary Dx); Hypothyroidism affecting in second trimester; 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 ([facility]); Obesity affecting in second trimester, unspecified obesity typeStart: 01-03-2025 End: 55-65-7030nlslbiwonhZZ [facility]CP [facility] PPGStart: 01-03-2025 End: 65-30-0812Yyaqcpgwd encounterRoslyn Griffin RNMaternal Medicine [facility] HospitaltonStart: 12-19-2024 End: 50-80-1162Klyxxj flowsheetJojo OGDEN Work Phone: [facility] [place] [facility]BGYNStart: 12-19-2024 End: 06-81-8453Lwsvjm flowsheetJojo OGDEN Work Phone: [facility]BGYNStart: 12-19-2024 End: 67-10-9611Sfvuap outpatient visit 15 minutesJojo OGDEN Work Phone: N[facility] OBGYNComment on above:22 weeks gestation of ([facility]); Second trimester ([facility]); Thyroid disease ; H/O gastric sleeve; H/O iron deficiency anemia; Diabetes mellitus screeningStart: 12-19-2024 End: 45-88-6651ycsngbqkfhCSI RAMEYNot AvailableStart: 12-15-2024 End: 55-02-6306Syzywoevu Result EncounterCorey Juan DO Work Phone: noms External Department UnsolicitedStart: 12-15-2024 End: 30-90-1509Zjayyykox Result EncounterCorey Juan DO Work Phone: noms External Department UnsolicitedStart: 12-05-2024 End: 97-94-2684Jcddqe consultation new/estab patient 80 Bal Lindquist MD Work Phone: [phone]-Hhmsb Medicine at [facility] Comment on above:20 weeks gestation of (Primary Dx); Previous gastric bypass affecting , antepartum; Obesity affecting in second trimester, unspecified obesity type; Hypothyroidism affecting in second trimester; 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 ([facility]); headache in second trimesterStart: 12-05-2024 End: 85-41-3321Gdoabw OnlyChiquita Shen RNMaternal- Medicine at [facility] GeneralComment on above:Previous gastric bypass affecting , antepartum (Primary Dx); Hypothyroidism affecting in second trimester; 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 ([facility]); Obesity affecting in second trimester, unspecified obesity type; Encounter for supervision of resulting from assisted reproductive technology, antepartumStart: 12-04-2024 End: 68-46-8319kxjzgthcweOSIBD FAZIONot AvailableStart: 12-02-2024 End: 71-67-5075Yklshmv encounter procedureRichard A Visci DO-[address] - O/P Start: 12-02-2024 End: 52-44-1114upmmjrmyykFxpapbhk Rohrbacher APRN Work Phone: [facility] Work Phone: Start: 12-02-2024 End: 40-11-7838Tvpwwtog Result EncounterRichard A Visci DO Work Phone: noms External Department UnsolicitedStart: 12-02-2024 End: 57-38-2646Wajadfjo Result EncounterRichard A Visci DO Work Phone: NOVQ External Department UnsolicitedStart: 12-01-2024 Non-patient / Non-visit([place]) Elizabeth MCDERMOTT-[facility] Work Phone: Start: 11-30-2024 End: 03-19-0674lyrjrcdlywWrvamacu Rohrbacher DRY CANS OPERATOR Work Phone: [facility] Work Phone: Start: 11-30-2024 End: 17-89-3521Frmucmol ReferredChris Chapman DO-LAB [facility] Start: 22-77-6019Eje-patient / Non-visitChris Chapman DO-[facility] Work Phone: Start: 11-20-2024 End: 54-41-5408Wgpgzx flowsheetCorey Juan DO Work Phone: noms [place] [facility]BGYNStart: 11-20-2024 End: 23-27-3265Swqlrf flowsheetCorey Juan DO Work Phone: noms [facility]YNStart: 11-20-2024 End: 03-45-9502Lgnebfhsb Result EncounterCorey Juan DO Work Phone: noms External Department UnsolicitedStart: 11-20-2024 End: 75-79-1215Ziemcefc Result EncounterCorey Juan DO Work Phone: noms External Department UnsolicitedStart: 11-20-2024 Non-patient / Non-visitCorey Juan-[facility] Work Phone: Start: 11-20-2024 End: 27-39-1684Yhptnie encounter procedureCorey Juan DO Work Phone: noms HealthcareStart: 11-20-2024 End: 17-50-8559Nqumaxkz preventive med est patient 18-39 yrsCorey Juan DO Work Phone: noms [place] OBGYNComment on above:Well woman exam with routine gynecological exam; Exposure to STD; Second trimester ([facility]); 18 weeks gestation of ([facility]); Need for maternal serum alpha-protein (MSAFP) screening ([facility]); Screening, , for anatomic survey ([facility]); Thyroid diseaseStart: 11-20-2024 End: 47-49-1496gtfkgkqnhgKNUQE FAZIONot AvailableStart: 25-89-8488Cnh-patient / Non-visitArtemiofito Jayla Chapman DO-[facility] Work Phone: Start: 10-26-2024 End: 41-18-0086Wyxebn OnlyNot In System Ref ProvMaternal- Medicine at [facility] Centertart: 10-22-2024 End: 20-30-4014Rvsllk outpatient visit 15 minutesCorey Juan DO Work Phone: noms BCP OBComment on above:13 weeks gestation of ([facility]); Second trimester ([facility]); Thyroid disease ; H/O gastric sleeve; H/O iron deficiency anemia; resulting from in vitro fertilization in first trimester ([facility]) Start: 10-22-2024 End: 84-71-5322hvozqktarsDSDDA FAZIONot AvailableStart: 10-18-2024 End: 19-69-2081Uouswobvh department patient visitAmanda Ford DRY CANS OPERATOR Work Phone: [phone]-Lgsomeevr Room Work Phone: Start: 10-10-2024 End: 71-27-3404Oyhypevqs Result EncounterCorey Juan DO Work Phone: noms External Department UnsolicitedStart: 10-10-2024 End: 80-45-3360Rshieiabw Result EncounterCorey Juan DO Work Phone: noms External Department UnsolicitedStart: 09-26-2024 End: 25-03-6654ybnjeiflsjPzdkjrym MerylrbacherFacility:[facility] HospitalStart: 09-20-2024 End: 31-85-0957Zypgby outpatient visit 5 minutesNoms Bcp Ob Juan NurseNOMS BCP OBComment on above:GA: 1a5xEqita: 09-20-2024 End: 93-34-1397qahcxyhpgxJHQCK SABBAGHNot AvailableStart: 09-03-2024 End: 07-90-5424Zocvgss evaluation of patient and reportUs Tech 1 Counts Include [address] Rej Work Phone: Reproductive Endocrinology InfertilityComment on above:Early stage of ([facility])Start: 09-03-2024 End: 70-05-3266godughxhrxEGHUSTI G MICKEYFacility:[facility] Start: 08-28-2024 End: 28-54-3707Dbalhuf evaluation of patient and reportUs Tech 2 Counts Include [address] [facility] Beac Work Phone: Reproductive Endocrinology InfertilityComment on above: resulting from assisted reproductive technology in first trimester ([facility])Start: 08-28-2024 End: 34-91-9808wkmsffuaadJJCYVPH G MICKEYFacility:[facility] Start: 08-24-2024 End: 51-00-7450Bxrcypjus encounterLiliana G David DRY CANS OPERATOR.STORE MERCHANDISER Work Phone: Reproductive Endocrinology InfertilityComment on above:Patient QuestionStart: 08-23-2024 End: 96-09-6521Wazfxtakr encounterLiliana G David DRY CANS OPERATOR.STORE MERCHANDISER Work Phone: Reproductive Endocrinology InfertilityComment on above:PainStart: 08-22-2024 End: 09-08-2398Btusupforrest Sinclair MD Work Phone: noms ENDOCRINOLOGYStart: 08-22-2024 End: 47-73-4607Elwloqforrest Sinclair MD Work Phone: noms ENDOCRINOLOGYStart: 08-22-2024 End: 35-49-7871Jdfose outpatient visit 25 minutesDarleen Sinclair MD Work Phone: NOMS SH ENDOCRINOLOGYComment on above:Abnormal thyroid function test (Primary Dx); H/O gastric bypass; 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CMS/HCC); Vitamin D deficiencyStart: 08-22-2024 End: 02-20-4999qukhsaqxmzNNUKLSp Andrade AvailableStart: 08-20-2024 End: 35-57-8717Zstphuqfdzij consultation with Washington Hernandez APRN.STORE MERCHANDISER Work Phone: Reproductive Endocrinology InfertilityStart: 08-20-2024 End: 90-62-5980bfgllmbvxdWkcsndc G Mickey DRY CANS OPERATOR.STORE MERCHANDISER Work Phone: Reproductive Endocrinology InfertilityComment on above: 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) (Primary Dx)Start: 08-18-2024 End: 07-40-3553kyhliuxbniUtlegtx G Mickey DRY CANS OPERATOR.STORE MERCHANDISER Work Phone: Reproductive Endocrinology InfertilityComment on above:UltrasoundStart: 08-17-2024 End: 65-31-9915ilawtzlsenJafngxrw RohrbacherFacility:[facility] HospitalStart: 08-16-2024 End: 46-60-8485Fjbuexbfn encounterLilimino Hernandez DRY CANS OPERATOR.STORE MERCHANDISER Work Phone: Reproductive Endocrinology InfertilityComment on above:positive for pregnancyStart: 08-15-2024 End: 16-56-4485Lozauymdg encounterLilimino Hernandez DRY CANS OPERATOR.STORE MERCHANDISER Work Phone: Reproductive Endocrinology InfertilityComment on above:Patient QuestionStart: 08-15-2024 End: 12-05-1487oledmaxfltEcvzuom G MickeyFacility:[facility] HospitalStart: 08-13-2024 End: 17-98-6583dulaffulqkIkqvjnv G MickeyFacility:[facility] HospitalStart: 07-31-2024 End: 58-30-7251herfdxupdnHDLPCxznpwje:[facility] HospitalStart: 07-31-2024 End: 61-37-6398Rbfemss encounter procedureAndrology Toy [employer] Access[employer] Salesperson Work Phone: [facility] Andrology LaboratoryComment on above: Procreative management (Primary Dx)Start: 07-30-2024 End: 47-56-2355Pywvjprhd encounterMelodie Hernandez DRY CANS OPERATOR.STORE MERCHANDISER Work Phone: Reproductive Endocrinology InfertilityComment on above:Patient QuestionStart: 07-25-2024 End: 74-20-0155zzjlcnpafxBEDDNpxwbtso:[facility] HospitalStart: 07-07-2024 End: 79-09-8827wcxvqovncoWNEOFHAA TANTIBHEDHYANGKULFacility:[facility]ertart: 07-07-2024 End: 16-05-4793Gjstclw encounter procedureAndrology [employer] Access[employer] Salesperson Work Phone: [facility] Andrology LaboratoryComment on above: Procreative management (Primary Dx)Encounter for artificial insemination (Primary Dx)Start: 07-06-2024 End: 06-56-1960Btreztvbm encounterMelodie Hernandez DRY CANS OPERATOR.STORE MERCHANDISER Work Phone: Reproductive Endocrinology InfertilityComment on above:Patient calling back/re iui 07/07 unsureStart: 07-05-2024 End: 96-74-5145Tupkjbzso encounterIgnacio Guy MD Work Phone: reproductive Endocrinology InfertilityComment on above:re iui this wknd/has cervical polyp questionStart: 07-04-2024 End: 76-38-0962Wwcqlberk encounterMelodie Hernandez DRY CANS OPERATOR.STORE MERCHANDISER Work Phone: Reproductive Endocrinology InfertilityComment on above:Treatment PlanningStart: 07-04-2024 End: 23-66-3712istyjjjlonSzgzaqw G Mickey DRY CANS OPERATOR.STORE MERCHANDISER Work Phone: Reproductive Endocrinology InfertilityComment on above:OvulatingStart: 07-04-2024 End: 78-58-2278Eclfxor encounter procedureUs Tech 3 Counts Include [address] [facility] Beac Work Phone: Reproductive Endocrinology InfertilityStart: 07-02-2024 End: 43-83-4988uzuhxgwsrpWQJWONE MICKEYFacility:[facility] HospitalStart: 06-29-2024 End: 73-78-7305tfpyxkbjuxASHQZMD MICKEYFacility:[facility] HospitalStart: 06-23-2024 End: 31-50-9999imtgepyhjoAbuaxng G David DRY CANS OPERATOR.STORE MERCHANDISER Work Phone: Reproductive Endocrinology InfertilityComment on above:Negative test and possible hematomaStart: 06-09-2024 End: 50-76-1183karjngzadmZNBUZV ATTARANFacility:[facility] HospitalStart: 06-09-2024 End: 29-04-1445Euuzcjl encounter procedureAndrology Toy [employer] And Accessories Salesperson Work Phone: [facility] Andrology LaboratoryComment on above: Procreative management (Primary Dx)Female infertility (Primary Dx)Start: 06-05-2024 End: 61-10-7092sbmfwdlrxtBditmnn G David DRY CANS OPERATOR.STORE MERCHANDISER Work Phone: Reproductive Endocrinology InfertilityStart: 06-05-2024 End: 85-51-1166Aqgrbce encounter procedureLiliana G David DRY CANS OPERATOR.STORE MERCHANDISER Work Phone: Reproductive Endocrinology InfertilityComment on above:IUI appointmentStart: 05-22-2024 End: 26-65-5493bvmauiybosCjjmydq G David DRY CANS OPERATOR.STORE MERCHANDISER Work Phone: Reproductive Endocrinology InfertilityComment on above:Progesterone resultsStart: 05-21-2024 End: 53-28-0468svylginalcLhgndky G MickeyFacility:[facility] HospitalStart: 05-18-2024 End: 02-05-6094umzjkgtndaGKZSWIA MICKEYFacility:[facility] HospitalStart: 05-09-2024 End: 84-06-9372ztwdlzxcwbIqsgbhq G David DRY CANS OPERATOR.STORE MERCHANDISER Work Phone: Reproductive Endocrinology InfertilityComment on above:Reproductive mgmt, 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)Start: 05-09-2024 End: 30-69-1005Zdvhhovcfcln consultation with Washington Hernandez APRN.CNP Work Phone: Reproductive Endocrinology InfertilityStart: 05-06-2024 End: 2592bgmhltwdmcUorzpbkBridget Hernandez APRN.STORE MERCHANDISER Work Phone: Reproductive Endocrinology InfertilityComment on above:Consent formStart: 05-02-2024 End: 08-27-2754Ykwvfhnreaho consultation with Rufino Enriquez PhD Work Phone: [facility] SystemsComment on above:Bipolar 1 disorder (Multi) (Primary Dx); Infertility counselingStart: 05-02-2024 End: 79-44-1395bttwxrymlpPVYUKE [facility] AmbulatoryStart: 04-26-2024 End: 67-66-3098blbigqcmooNxihivhraOhioHealth Shelby Hospital Work Phone: Start: 04-26-2024 End: 82-98-5689Dhpbxuf encounter procedureUn[facility] Work Phone: Start: 04-24-2024 End: 96-59-7866eyvaycdwuuTLSAMRC MICKEYFacility:[facility] Centertart: 04-23-2024 End: 51-46-8911jqodgohhpbWtpqyisflOhioHealth [facility] Hospital Work Phone: Start: 04-23-2024 End: 35-55-7033Rssmbuj encounter procedureUnc Health [facility] Physician [facility] Work Phone: Start: 04-02-2024 End: 71-70-3954glrfnhjxdsMmhdyguBridget Hernandez APRN.STORE MERCHANDISER Work Phone: Reproductive Endocrinology InfertilityComment on above:Genetic testingStart: 03-09-2024 End: 41-01-7766mnbrbnrduuCvlzlgeSue Hernandez APRN.STORE MERCHANDISER Work Phone: Reproductive Endocrinology InfertilityComment on above:Reproductive mgmt, 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); Special screening examination for infectious diseases; Encounter for other genetic testing of female for procreative managementStart: 03-09-2024 End: 50-06-9945Znqrklirdvls consultation with Washington Hernandez APRN.CNP Work Phone: Reproductive Endocrinology InfertilityStart: 02-29-2024 End: 36-79-1858dcivutizyrOKHQUZA MICKEYFacility:[facility] Centertart: 02-28-2024 End: 16-23-9942wtjawnowhpWHTPGG ATTARANFacility:[facility] Centertart: 02-28-2024 End: 52-38-6431Xtusnmg encounter Ana Rosa Guy MD Work Phone: reproductive Endocrinology InfertilityComment on above: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)Start: 02-27-2024 End: 76-72-5756uqecxooenfPktfnzag Rohrbacher APRN Work Phone: [facility] Work Phone: Start: 02-27-2024 End: 58-83-2859Yozesql encounter procedureAmanda Ford APRN Work Phone: [facility] Work Phone: Start: 69-05-3637Pxk-patient / Non-visitUnc Health [facility] Work Phone: Start: 02-20-2024 End: 61-21-3347Opigqlc encounter procedureCorey Juan DO Work Phone: noMS HealthcareStart: 02-20-2024 End: 88-13-1029Mdkvpsye preventive med est patient 18-39 yrsCorey Juan DO Work Phone: noms BCP OBComment on above:Well woman exam with routine gynecological examStart: 02-20-2024 End: 47-20-2728Lwllgl flowsheetCorey Juan DO Work Phone: noms BCP OBStart: 02-20-2024 End: 11-92-3793Fhpohd flowsheetCorey Juan DO Work Phone: NOMS BCP OBStart: 02-20-2024 End: 19-66-6337Xosrqlwsr Result EncounterCorey Juan DO Work Phone: NOMS External Department UnsolicitedStart: 01-17-2024 End: 75-09-4604hhoaaetmnpQDRK Jennifer Rohrbacher Work Phone: [facility] Work Phone: Start: 01-17-2024 End: 20-70-8829Xokjtle encounter procedureMELY Ford Work Phone: [facility] Work Phone: Start: 71-55-5600Zdv-patient / Non-visitAPRTanja Ford Work Phone: [facility] Work Phone: Start: 12-20-2023 End: 23-14-4910ubwubhwbtuHBFM Jennifer Rohrbacher Work Phone: [facility] Work Phone: Start: 12-20-2023 End: 66-65-0228Xbdwsii encounter procedureMELY Ford Work Phone: [facility] Work Phone: Start: 94-02-6204ldnhvzvtybHvmcx Bailey [facility]: 33-05-8813Jsv-patient / Non-visitAPRTanja Ford Work Phone: [facility] Work Phone: Start: 12-07-2023 End: 81-22-1005Ujlkanwxd to same day surgery centerMELY Ford Work Phone: [facility] HospitalStart: 12-07-2023 End: 05-95-8539pqcdpmeuczADYRShima Ford Work Phone: [facility] Work Phone: Start: 12-01-2023 End: 55-34-2474giaflpeexcMEZD Jennifer Rohrbacher Work Phone: [facility] Work Phone: Start: 12-01-2023 End: 89-29-1648Zpxqjvq encounter procedureMELY Ford Work Phone: [facility] Work Phone: Start: 11-28-2023 End: 43-33-8075wrswctdckbJNSQShima Ford Work Phone: [facility] Work Phone: Start: 11-28-2023 End: 44-71-4563Bausaqw encounter procedureMELY Ford Work Phone: [facility]-Pre-Surgical Testing Work Phone: Start: 11-02-2023 End: 20-19-8217Vjdlsmuyg department patient visitAmanda Ford Facility:[facility]tart: 11-01-2023 End: 05-05-2460ayeljrjaahKAOAShima Ford Work Phone: [facility] Work Phone: Start: 11-01-2023 End: 39-43-1907Otviggg encounter procedureMELY Ford Work Phone: [facility] Work Phone: Start: 10-26-2023 End: 32-37-6353dizqqugpbfQFOW Jennifer Rohrbachenikkie Work Phone: [facility] Work Phone: Start: 10-26-2023 End: 88-25-3907Wczvoac encounter procedureAPRTanja Patel Rosarioacher Work Phone: [facility] Work Phone: Start: 10-13-2023 End: 00-36-7489brhxynvukpXntdkjpbx [facility] Work Phone: Start: 10-13-2023 End: 23-53-5706Jluiwqq encounter procedureChristoph Physician Group-[facility] Work Phone: Start: 01-64-6642Kmm-patient / Non-visitChad Physician Group-[place] [employer]o financiero Work Phone: Start: 06-08-2023 End: 40-05-7029yfiumwiinxWyushezcqACMC Healthcare System [facility] Work Phone: Start: 06-08-2023 End: 65-44-8755Akttdmv encounter procedureChad Physician Group-[facility] Work Phone: Start: 05-17-2023 End: 91-77-6717tydhffdlypHnbothod Merylrbacher Other [facility] Other Start: 53-21-5487Wmglwq outpatient visit 15 minutes [facility] OrthopedicsStart: 28-22-4929Arpnupijl encounterJennifer RohrbacherFPG [facility] ClinicStart: 05-17-2023 End: 70-58-4949Rppzzsk encounter procedureChad Physician Group-Start: 04-28-2023 End: 56-59-2951rpwjrqbikiPvlqotpg Rohrbacher Other [facility] Other Start: 95-12-7816Apwqandrc encounterJennifer RohrbacherFPG [facility] ClinicStart: 04-22-2023 End: 33-26-0280gdoyourkqjUqdzcozs Rohrbacher Other noSTYLIGHT Other Start: 45-24-8555Prstzzitk encounterJennifer RohrbacherFPG [facility]Start: 04-19[facility]2023 End: 71-62-9729tnwohvrqmwMpvbvbcf Rohrbacher Other noSTYLIGHT Other Start: 92-33-8534Cfxvltgnu encounterJennifer RohrbacherFPG [facility] RoadStart: 04-14-2023 End: 41-32-5269sjmvkfkcyrLqavlsqr Rohrbacher Other noSTYLIGHT Other Start: 54-41-5654Zzigbybdl encounterJeaicha RohrbacherFPG [facility]Start: 03-17-2023 End: 89-77-6547vkhwgibvorHlqyz Bailey Other noSTYLIGHT Other Start: 47-10-1432Gwbccnohl encounterRomeo Bazzi OrthopedicsStart: 02-07-2023 End: 15-56-5195ejfgbijvqnPzynmugg Rohrbacher Other noSTYLIGHT Other Start: 17-41-7148Rmynio outpatient visit 15 minutes Petr Viviana [facility] FargouskyStart: 61-95-6155Ylyxhwgcv encounter Amanda ShethrbacherFPG [facility] ClinicStart: 01-27-2023 End: 50-61-9770zgoyxcsqyfPdfcqjns Rohrbacher Other noSTYLIGHT Other Start: 93-75-3812Bxvjotyan encounterJennifer RohrbacherFPG [facility] [place]Start: 01-19-2023 End: 11-39-4969eqhxqatbqkMzymftny Rohrbacher Other noSTYLIGHT Other Start: 79-67-9318Zzmmokzbv encounterJennifer RohrbacherFPG [facility] ClinicStart: 01-13-2023 End: 80-81-7373uwenwexfdmBwvjwefo Rohrbacher Other noSTYLIGHT Other Start: 67-89-4466Rfrojbzxh encounterJennifer RohrbacherFPG [facility] ClinicStart: 01-10-2023 End: 25-68-6468vwaexmqkyoKfdkguxv Rohrbacher Other [facility] Other Start: 45-38-2398Tcjwhowrm encounterJennifer RohrbacherFPG [facility] ClinicStart: 01-06-2023 End: 00-15-8656btfrsgtpviBhidvlqm Rohrbacher Other noSTYLIGHT Other Start: 78-57-9406Ynfbtfnhw encounterJennifer RohrbacherFPG [facility] ClinicStart: 12-27-2022 End: 56-25-4615cszfkmuhdxQagpcxw Alireza Other noSTYLIGHT Other Start: 81-81-6566Qxviph outpatient visit 15 minutes Petr [facility] [place]Start: 11-10-2022 End: 75-50-1584hxnzivtcvwZoiznbeq Rohrbacher Other noSTYLIGHT Other Start: 75-91-8676Uvwdqcfpu encounterJennifer RohrbacherFPG [facility] [place]kyStart: 10-21-2022 End: 48-79-5026xjbxkfpbbqAffdhtcv Rohrbacher Other [facility] Other Start: 18-62-9420Ticvcsgsb encounterJennifer John Family [facility] HospitalStart: 10-11-2022 End: 96-30-0543xmkkuwsbuzPwetdvf Widmer Other noSTYLIGHT Other Start: 93-54-7128Vvaces consultation new/estab patient 40 minMatthew BimerFPG [facility] [place]kyStart: 09-30-2022 End: 38-44-5234pzyusifilfXyljteub Rohrbacher Other [facility] Other Start: 31-77-6224Uajwdc outpatient visit 15 minutes Amanda RosarioangelDanika Family [facility] HospitalStart: 08-25-2022 End: 24-47-0458nwwzcdcyogLfnipgsk Rohrbacher Other [employer] Other Start: 75-27-8644Jkzkxw outpatient visit 15 minutes Amnada ShethsarahangelDanika Family [facility] ErtonStart: 08-20-2022 End: 37-39-2473eefdetwhvoIthkfpaz Rohrbacher Other [employer] Other Start: 20-95-8492Alsiqr outpatient visit 15 minutes Amanda RosarioangelDanika Family [facility] ErtonStart: 07-19-2022 End: 05-25-4231pyexlsdriqAismtvdd Rohrbacher Other [facility] Other Start: 97-79-2237Tmzmfcjxz encounterJennifer MerylrbacherF Family [facility] ErtonStart: 07-08-2022 End: 83-82-9363rozaxyusvlLrlbrpru Rohrbacher Other [employer] Other Start: 15-27-5814Jboibpqiu encounterAmanda LopezJersey Shore University Medical CenterStart: 06-23-2022 End: 61-61-9793xerjbjlrffXVHA Jennifer Rohrbacher Work Phone: [facility] Work Phone: Start: 06-23-2022 End: 07-13-2425Hotfwni encounter procedureAPRTanja Ford Work Phone: [facility] [place] Work Phone: Start: 06-17-2022 End: 15-56-6519khuaqfcvysUxyvhqhx Rohrbacher Other [place] [employer] Other Start: 26-61-9622Owapbcawa encounterAmanda FordNoboone hospital center Playtabasert: 06-16-2022 End: 05-10-7565mcseqlexpgTUSG Jennifer Rohrbacher Work Phone: [facility] Work Phone: Start: 06-16-2022 End: 67-50-6518Rgaupig encounter procedureAPRTanja Amandahina Ford Work Phone: [facility] [place] Work Phone: Start: 06-10-2022 End: 98-78-5353Chmbsoegre and management of inpatientMD Mariam Appiah Work Phone: [facility] [place] [facility] Work Phone: Start: 69-81-8086rrupwucyzhl encounterMD aMriam Appiah Work Phone: [facility] Work Phone: Start: 06-09-2022 End: 81-02-2549pstczuzywiCA Mariam Appiah Work Phone: [facility] Work Phone: Start: 06-09-2022 End: 64-23-3023Hemmrsq encounter procedureMD Mariam Appiah Work Phone: [facility] [place] Work Phone: Start: 04-26-2022 End: 15-28-2754naoetxdkfpHzaeelqd Rohrbacher Other [employer] Other Start: 51-07-3959Bxmnuvtka encounterArtemionnifer RosarioachenikkieCall Britannia Playtabasert: 04-23-2022 End: 76-05-9526tktxolzfudPdrxdnpx Rohrbacher Other [employer] Other Start: 97-32-9990Uxqsnisrg encounterJennifer MerylrbacheSaint Louis University HospitalCHiL Semiconductorrt: 04-21-2022 End: 78-84-2243Emafohgg ReferredMD Mariam Appiah Work Phone: [facility] [place] Work Phone: Start: 04-21-2022 End: 54-88-3297givlwaostpDL Mariam Appiah Work Phone: [facility] Work Phone: Start: 22-45-8970Qfhnut outpatient visit 15 minutes Amanda LopezJersey Shore University Medical CenterStart: 04-20-2022 End: 67-97-7432ubmjhoxrjsHsibsacz Rohrbacher Other [employer] Other Start: 35-36-7802Crqjeognu encounterAmanda ShethrbacherFJersey Shore University Medical CenterStart: 04-13-2022 End: 18-39-5598tnoerqflepUiuxqxxv Rohrbacher Other [employer] Other Start: 48-74-4109Mgpptqelk encounterJennifer MerylrbacherNoboone hospital center Playtabasert: 04-10-2022 End: 68-94-1119Lzhcroezt department patient visitMD Mariam Appiah Work Phone: [facility] Work Phone: Start: 04-08-2022 End: 48-75-2785Frgreqyqa department patient visitMD Mariam Appiah Work Phone: [facility] Work Phone: Start: 03-30-2022 End: 63-02-3019dwszfpjgbqJdvnlvus Rohrbacher Other [employer] Other Start: 04-34-0022Wrjbfbshg encounterJennifer MerylrbacherFNorthBay VacaValley Hospital ClintonStart: 03-23-2022 End: 63-32-3750Eyuhgbi encounter procedureMD Mariam Appiah Work Phone: [facility] ClintonStart: 03-23-2022 End: 63-31-1330pqfmfrnilvQfehczvg Rohrbacher Other [employer] Other Start: 10-04-1192Oaxjew outpatient visit 15 minutes Amanda Lopez Family [facility] ClintonStart: 03-17-2022 End: 23-79-5857gktonxhontSdmrdhgq Rohrbacher Other [employer] Other Start: 32-72-1348Rnwycmcfc encounterJennifer MerylrbacherFPG Family [facility] ErtonStart: 02-08-2022 End: 62-02-2488rifndrzzdkNckbeagm Rohrbacher Other [employer] Other Start: 20-39-5042Djxhmo outpatient visit 25 minutes Amanda LopezJersey Shore University Medical CenterStart: 09-01-2021 End: 06-14-0559Pqqxaic encounter Afshan Thompson [facility] Start: 08-25-2021 End: 03-16-6458Yuhwhyf encounter Afshan Thompson [facility] Start: 08-06-2021 End: 50-89-4382Cqsrjyy encounter Afshan Thompson [facility] Start: 07-24-2021 End: 47-56-3819Ujhamxd encounter Afshan Thompson [facility] Start: 07-23-2021 End: 03-05-2028dmnsddzaxpIcjxcvvg Rohrbacher Other [employer] Other Start: 80-67-9935Rfaiholmx encounterAmanda FordStinesville [employer]ys[employer] CoStart: 07-16-2021 End: 85-32-1204wbfbyevobmBpceekfx Merylrbacher Other [employer] Other Start: 86-05-5629Aviqql outpatient new 30 minutes Amanda LopezJersey Shore University Medical CenterStart: 03-30-2021 End: 23-60-7216Hsjclqttm department patient visitMARIAM APPIAHCleveland Clinic Marymount Hospitaltart: 05-06-2020 End: 45-47-8361jrhacnjkolJQKJRRO R JOHNSSelect Medical Specialty [facility] Start: 05-06-2020 End: 78-29-3682Xmhtfphgww hospital visit by Magui Olivera Work Phone: stvz 2C Ortho/Med SurgComment on above:Post-op pain (Primary Dx)Start: 05-02-2020 End: 42-06-1539Elxyglz encounter procedureLU Colt [facility] HospitalStart: 05-02-2020 End: 48-55-1557Skxgkknigs hospital visit by physicianStcdoroteo Covid Screening ScheduleSTCZ Covid ScreeningComment on above:Pre-op testing (Primary Dx)Start: 04-22-2020 End: 01-86-1785ouvuxzrutuRHTWKOUPremier Health [facility] Start: 04-22-2020 End: 72-74-4823ghimmodiaxZORUQIDPremier Health [facility] Start: 04-22-2020 End: 33-34-1611Ssjsbtwrkn hospital visit by physicianSfatoumata C-Arm [address] [place] [address] RadiologyComment on above:ArrivedStart: 04-22-2020 End: 58-12-3203Ojbulxvlhm hospital visit by physicianSraisa Pat 2STVZ Pre-Admit Testing Procedures DateProcedureProcedure DetailPerforming ClinicianStart: 35-07-3230PL OB BPP W NON-STRESSCorey Juan DO Work Phone: Start: 05-07-2459HLG THYROID STIM HORMONECorey Juan DO Work Phone: Start: 56-78-6742Eeajy dip stick/tablet rgnt non-auto w/o micrscpCorey Juan DO Work Phone: Start: 42-77-9798Zutgm dip stick/tablet rgnt non-auto w/o micrscpAmy Kwaku OGDEN Work Phone: Start: 86-76-0145Pjszr dip stick/tablet rgnt non-auto w/o micrscpMima Duenas NP Work Phone: Start: 64-85-6791TID THYROID STIM HORMONECorey Juan DO Work Phone: Start: 56-60-2252OGJ CBC WITH AUTO DIFFAmy Kwaku OGDEN Work Phone: Start: 02-45-5621QVOHYPK 1 HOURAmy Kwaku OGDEN Work Phone: Start: 15-06-6603Ktrmc dip stick/tablet rgnt non-auto w/o micrscpAmy Kwaku OGDEN Work Phone: Start: 04-90-2859NVO UA (CLEAN/CATCH) CAR COUPLER/MICRO IF IND.Les Juan DO Work Phone: Start: 83-90-8674PAY URINE MICROSCOPIC ONLYCorey Juan DO Work Phone: Start: 98-91-7038Blnqm dip stick/tablet rgnt auto w/o microscopyRichard A Visci DO Work Phone: start: 63-23-3826SGKMLPSTA VAGINITIS (HTRX)Les Juan DO Work Phone: Start: 76-29-8956XKO THYROID STIM HORMONECorey Juan DO Work Phone: Start: 81-58-3207Aatxl dip stick/tablet rgnt non-auto w/o micrscpCorey Juan DO Work Phone: Start: 07-68-4326Fsgzd dip stick/tablet rgnt non-auto w/o micrscpCorey Juan DO Work Phone: Start: 74-47-4395EMYSKWVZ LAB TESTNot In System Ref ProvStart: 10-51-5929Dsjkoowd identification testAmanda Ford DRY CANS OPERATOR Work Phone: Start: 14-81-9741Wemvrfrgnwaro of growth of fungi Amanda Ford DRY CANS OPERATOR Work Phone: Start: 02-83-7704Edepcovscoq vaginalis detection Amanda Ford DRY CANS OPERATOR Work Phone: Start: 45-47-4933Sfsok cultureJennifer Logan DRY CANS OPERATOR Work Phone: Start: 53-76-6957Tkyekjqkng ultrasound of gravid uterusArtemionnedmundo Ford DRY CANS OPERATOR Work Phone: Start: 89-70-7885BYOFZNSZ LAB TESTNot In System Ref ProvStart: 13-40-3280DXH TESTCorey Juan DO Work Phone: Start: 92-70-2422Miiysfvt rubellaNot In System Ref ProvStart: 19-43-0422Gustxfrv Zak Lindquist MD Work Phone: Start: 81-22-8962Rsuzcxmnvy glycosylated x1hUtmoidqr Provider ExternalStart: 46-20-5565RYR 1&2 AB/AG SCREEN (P24 AG)Not In System Ref ProvStart: 99-87-0666Kjli ia hepatitis b surface antigenNot In System Ref Prov Start: 50-58-7572UBACGHME TOTAL(UNKNOWN SYPHILIS STATUS)Not In System Ref Prov Start: 89-79-6098XEQR AND SCREENNot In System Ref ProvStart: 09-21-2024 ULTRASOUND OFFICENot In System Ref ProvStart: 10-82-1290Rfjft dip stick/tablet rgnt non-auto w/o micrscpCorey Juan DO Work Phone: Start: 04-80-1830Sv preg uterus after 1st trimest / gestationLiliana G David DRY CANS OPERATOR.STORE MERCHANDISER Work Phone: Start: 41-59-0512Yd preg uterus after 1st trimest / gestationLiliana G David DRY CANS OPERATOR.STORE MERCHANDISER Work Phone: Start: 05-58-2776Bp pelvic nonobstetric real-time image Nydia Guy MD Work Phone: start: 34-28-2545Wielfmpe screenLILIANA MICKEYComment on above:Order Comment: Specimen Type: BLOOD SPECIMEN Ordering Facility: [facility] Address: [address] [place], [place] [address]Performed By: #### TSPN #### ELO [facility]LO[facility] [id number] [place] [address] [place] AMERICAStart: 62-75-5546NKE,APTIMA HPV,AGE GDLN Les Monsivaiso DO Work Phone: Start: 49-41-8448Ucxxanapfzr observation [Identifier] in Cervix by Rose Enriquez PhD Work Phone: Start: 69-51-6444UA Shoulder Scope RCR/Biceps Tendon (Right)DRY CANS OPERATOR Amanda Logan Work Phone: Start: 48-91-5655Mbjqoqtt tomography of abdomen and pelvis with contrastMD Mariam Appiah Work Phone: Start: 79-55-1953Sodrfjomo for occult blood in fecesMD Mariam Appiah Work Phone: Start: 14-22-7052Qejze cultureMD Mariam Appiah Work Phone: Start: 15-92-3149Nsghy cultureMD Mariam Appiah Work Phone: Start: 04-68-2776Mitfb X-ray of right shoulderMD Mariam Appiah Work Phone: Start: 32-10-4181Fkbuf metabolic panel calcium total Rei Montez Work Phone: Start: 63-40-8430Ogith count complete auto&auto difrntl wbcMichael A Montez Work Phone: Start: 49-19-8613Pcrwo esophagusGregdriss R Olivera Work Phone: Start: 67-21-3941Aukkv metabolic panel calcium total Rashard R Olivera Work Phone: Start: 18-62-9899Gqgfg count complete automatedGregdriss R Olivera Work Phone: Start: 24-79-1086Xcwxg metabolic panel calcium total Rashard R Olivera Work Phone: Start: 87-28-9411Wicsi count complete automatedRashard Olivera Work Phone: Start: 05-06-2020 End: 15-15-6484WKWPOARYEGD SLEEVE LAPAROSCOPIC ROBOTICRashard Olivera Work Phone: Start: 90-86-8517Qphbv test visual color cmprsn methsGlisa Olivera Work Phone: Start: 61-80-3531Equpg iv surg pathology gross&microscopic examRashard Olivera Work Phone: Start: 45-16-0778Awenyajwgx exam chest 2 viewsRashard Olivera Work Phone: Start: 54-29-2398Efhaw of nicotineRashard Olivera Work Phone: Start: 52-19-3035Sxier metabolic panel calcium total Rashard Olivera Work Phone: Start: 16-52-4708Hqzhy count complete Idania Olivera Work Phone: Start: 00-42-8951Gvwjzlayfrz timeRashard Olivera Work Phone: Start: 43-67-7672Jycgsbqqslefwd time partial plasma/whole bloodRashard Olivera Work Phone: Start: 21-42-8857Orh routine ecg w/least 12 lds i&r onlyRashard Olivera Work Phone: Start: 05-75-4779GMM REPORTHpf ScanningCholecystectomy Samir Thompson Comment on above:2016 Plan of Treatment DateCare ActivityDetailAuthorStart: 28-65-1580IQT Vaccine (1 - 1-dose 75+ series)RSV Vaccine (1 - 1-dose 75+ series)[facility] Hospitaltart: 2045 Zoster Vaccines (1 of 2)Zoster Vaccines (1 of 2)[facility]Start: 68-30-1486SJbF,Tdap and Td Vaccines (2 - Td or Tdap)DTaP,Tdap and Td Vaccines (2 - Td or Tdap)[facility]Start: 12-25-2032 DTaP/Tdap/Td Vaccines (2 - Td or Tdap)DTaP/Tdap/Td Vaccines (2 - Td or Tdap) [facility] HospitalStart: 30-11-2058Xmxlo microalbumin profile DTaP,Tdap,Td Vaccine (2 - Td or Tdap)[facility] Hospitaltart: 28-06-0747Heogqdewj for malignant neoplasm of cervixUnFlower Hospital: 71-29-8673Xmsav BMI ScreeningAdult BMI ScreeningProUniversity [facility] SystemStart: 24-05-6648Qxmqexf ScreeningTobacco ScreeningProCrystal Clinic Orthopedic Centertart: 12-05-2025 End: 93-16-3516FI MFM with or without consultUS MFM with or without consult Imaging Routine Previous gastric bypass affecting , antepartum Hypothyroidism affecting in second trimester 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 ([facility]) Obesity affecting in second trimester, unspecified obesity type Encounter for supervision of resulting from assisted reproductive technology, antepartum Expected: 12/05/2025 (Approximate), Expires: 12/05/2025[facility] Work Phone: comment on above:Expected: 12/05/2025 (Approximate), Expires: 12/05/2025Start: 08-21-2025 End: 69-46-7345Duvkxot encounter procedureNOBAPTIST HEALTH LA GRANGEStart: 03-06-2025 End: 30-89-4854Tqdnths encounter lnadybrxj22/19/2025 10:30 AM EST Routine GUDELIA HERNANDEZ [address] [place] [address] Jojo Ames PA [address] [facility] [place], [place] [id number] GUDELIA SHERMANGYNStart: 03-05-2025 End: 10-61-4252Urkcbkn encounter ylpwkkpob06/18/2025 11:15 AM EST Appointment [facility] - Ultrasound [address] [place] [address] [phone] [facility] - UltrasoundStart: 02-20-2025 End: 68-53-7253Ahuyser encounter procedureNOMS BCP OBStart: 02-19-2025 End: 45-30-4858NB biophysical profile w non stress testUS biophysical profile w non stress test Imaging Routine TSH (thyroid-stimulating hormone deficiency) Expected: 02/19/2025 (Approximate), Expires: 08/19/2025[facility] Work Phone: comment on above:Expected: 02/19/2025 (Approximate), Expires: 08/19/2025Start: 02-19-2025 End: 08-50-0754Vzfzooo encounter bjosaqmfj18/04/2025 1:00 PM EST Routine NOMMarixa [place] [facility] [address] [place], [id number] Les Martinez DO [address] [place], [place] [id number] NOMS Ricco OBGYNStart: 02-07-2025 End: 26-51-2860LU MFM with or without consultUS MFM with or without consult Imaging Routine Hypothyroidism affecting in second trimester headache in second trimester Previous gastric bypass affecting , antepartum 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 ([facility]) Expected: 02/07/2025, Expires: 02/07/2026[facility] Work Phone: comment on above:Expected: 02/07/2025, Expires: 02/07/2026Start: 02-07-2025 End: 32-15-5833Zkobvra encounter /23/2025 9:45 AM EDT Appointment [facility] [place] [address] [facility] [address] [place] [address] [phone] Medicine [place]villeStart: 02-06-2025 End: 33-54-0977Khgdfaz encounter procedureNOMS [place] OBGYNComment on above: ArrivedStart: 02-03-2025 End: 87-48-0702HR MFM with or without consultUS MFM with or without consult Imaging Routine Previous gastric bypass affecting , antepartum Hypothyroidism affecting in second trimester 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 ([facility]) Obesity affecting in second trimester, unspecified obesity type Expected: 02/03/2025 (Approximate), Expires: 01/04/2026[facility] Work Phone: comment on above:Expected: 02/03/2025 (Approximate), Expires: 01/04/2026Start: 01-30-2025 End: 67-30-7947Flnrshjtbryl / ancillary services jlpwfhvamc01/15/2025 2:30 PM EDT Ancillary Procedure [facility] [address] [place] [address] [place] [id number] NOMS Ricco OBGYNStart: 01-16-2025 End: 95-60-5168PI for pregnancyUS OB follow up transabdominal approach Imaging Routine TSH (thyroid-stimulating hormone deficiency) Expected: 01/16/2025, Expires: 05/19/2025[facility] [employer] Work Phone: comment on above:Expected: 01/16/2025, Expires: 05/19/2025Start: 01-16-2025 End: 36-15-1588Enindky encounter procedureNOMS [place] OBGYNComment on above: ArrivedStart: 01-03-2025 End: 01-51-6666Gpurakh encounter rmvxhnuhe39/18/2025 2:15 PM EDT Appointment [facility] [place] [address] [facility] [address] [place] [address] [phone] Medicine [place]Start: 12-19-2024 End: 88-59-0941VOQ panel - Blood by Automated countCBC Lab Routine Diabetes mellitus screening Expected: 12/19/2024 (Approximate), Expires: 12/19/2025[facility] Work Phone: comment on above:Expected: 12/19/2024 (Approximate), Expires: 12/19/2025Start: 12-19-2024 End: 59-69-4039Mfbbexzxcyc of glucose 1 hour after glucose challenge for glucose tolerance testGlucose tolerance, 1 hour Lab Routine Diabetes mellitus screening Expected: 12/19/2024 (Approximate), Expires: 12/19/2025NONV HealthcareComment on above:Expected: 12/19/2024 (Approximate), Expires: 12/19/2025Start: 12-19-2024 End: 06-32-0592Vvhnbjm encounter procedureNOMS [place] OBGYNComment on above: ArrivedStart: 71-09-3617PRWAS-19 Vaccine ()COVID-19 Vaccine ()[facility] SystemStart: 04-34-0976Hiouepxaf vaccination [facility] Hospitaltart: 12-05-2024 End: 85-61-8765Pmubuyg encounter procedureAshtabula [facility] US ImagingStart: 12-04-2024 End: 23-68-0315Pdcsnplosdur / ancillary services rvsjgowkbv18/19/2025 8:30 AM EDT Ancillary Procedure GUDELIA [place] [facility] [address] [place] [address] [place] [address] THYM Ricco OBGYNStart: 40-34-4084Ekezrpeg admission [facility] Centertart: 07-00-1226XrsqpvynwCoshocton Regional Medical Centertart: 12-03-3119Oeptrqid identified in Urine by CultureUrine Culture [facility]ertart: 11-30-2024 End: 65-91-5590Infye cultureCoshocton Regional Medical Centertart: 11-20-2024 End: 61-21-7894Ojasg fetoprotein, maternalAlpha fetoprotein, maternal Lab Routine Need for maternal serum alpha-protein (MSAFP) screening ([facility]) Expected: 11/20/2024 (Approximate), Expires: 12/21/2024NONV HealthcareComment on above:Expected: 11/20/2024 (Approximate), Expires: 12/21/2024Start: 11-20-2024 End: 03-22-0892UW for pregnancyUS OB 14+ weeks anatomy scan Imaging Routine Screening, , for anatomic survey ([facility]) Expected: 11/20/2024 (Approximate), Expires: 02/20/2025NOMS HealthcareComment on above:Expected: 11/20/2024 (Approximate), Expires: 02/20/2025Start: 11-20-2024 End: 51-13-0679Qgpbxju encounter procedureNOMS BCP OBComment on above:Arrived Start: 10-22-2024 End: 96-55-0690Jbkrlkd encounter gdhictofw34/07/2025 11:20 AM EDT Routine [facility] [address] [place] [address] Les Martinez, DO [address] [place] [address] NOMS BCP OBStart: 24-18-3398Uqsqfdfe identified in Urine by CultureUrine [facility] Start: 73-59-8853Rmetkyk CultureGenital [facility] Start: 66-26-2268Xitog [facility] Centertart: 10-18-2024 [facility]ertart: 09-20-2024 End: 95-20-0890YBY/RhABO/Rh Lab Routine Missed menses , unspecified gestational age Expected: 09/20/2024 (Approximate), Expires: 09/20/2025NONV HealthcareComment on above:Expected: 09/20/2024 (Approximate), Expires: 09/20/2025Start: 09-20-2024 End: 12-20-3503Fzitz type and Indirect antibody screen panel - BloodType and screen Lab Routine Missed menses , unspecified gestational age Expected: 09/20/2024 (Approximate), Expires: 09/20/2025[facility] Work Phone: comment on above:Expected: 09/20/2024 (Approximate), Expires: 09/20/2025Start: 09-20-2024 End: 01-84-9787Kgrhf of abuse panel - Urine by Screen methodRapid drug screen, urine Lab Routine , unspecified gestational age Encounter for supervision of normal first in first trimester Expected: 09/20/2024 (Approximate), Expires: 09/20/2025NOMS HealthcareComment on above:Expected: 09/20/2024 (Approximate), Expires: 09/20/2025Start: 09-13-2024 End: 97-29-1657kwhpooyzyh50/29/2025 2:30 PM EDT Initial [facility] [address] [place] [address] KUDF BCP OBStart: 09-13-2024 End: 05-48-8358Rbqdjznhtsbs / ancillary services usyvigehur85/29/2025 2:00 PM EDT Ancillary Procedure N[facility] OB [address] [place] [address] HMJK [facility] OBStart: 09-03-2024 End: 25-68-3100Lwqeyea evaluation of patient and reportReproductive Endocrinology InfertilityComment on above: scanob scan, non ivfStart: 08-22-2024 End: 767008-yjauuyoyfbipzz D3 [Mass/volume] in Serum or PlasmaVitamin D 25 hydroxy Lab Routine H/O gastric bypass Vitamin D deficiency Expected: 08/22/2024 (Approximate), Expires: 08/22/2025MS HealthcareComment on above: Expected: 08/22/2024 (Approximate), Expires: 08/22/2025Start: 08-22-2024 End: 49-30-1714Ncrwsuvlu (Vitamin B12) [Mass/volume] in Serum or PlasmaVitamin B12 Lab Routine H/O gastric bypass Expected: 08/22/2024 (Approximate), Expires: 08/22/2025NOMS HealthcareComment on above:Expected: 08/22/2024 (Approximate), Expires: 08/22/2025Start: 08-22-2024 End: 90-60-4514Poznmxao (aka Vitamin B1)Thiamine (aka Vitamin B1) Lab Routine H/O gastric bypass Expected: 08/22/2024 (Approximate), Expires: 08/22/2025NOMS HealthcareComment on above:Expected: 08/22/2024 (Approximate), Expires: 08/22/2025Start: 08-22-2024 End: 29-40-6886Ninkumbtmna [Units/volume] in Serum or PlasmaTSH Lab Routine Abnormal thyroid function test Expected: 08/22/2024 (Approximate), Expires: 08/22/2025[facility] HealthcareComment on above:Expected: 08/22/2024 (Approximate), Expires: 08/22/2025Start: 08-22-2024 End: 74-23-6897Prcjkvilw (T4) free [Mass/volume] in Serum or PlasmaT4, free Lab Routine Abnormal thyroid function test Expected: 08/22/2024 (Approximate), Expires: 08/22/2025[facility] HealthcareComment on above:Expected: 08/22/2024 (Approximate), Expires: 08/22/2025Start: 08-22-2024 End: 08-01-5294Reuzusrkwxgdcdip (T3) Free [Mass/volume] in Serum or PlasmaT3, free Lab Routine Abnormal thyroid function test Expected: 08/22/2024 (Approximate), Expires: 08/22/2025[facility] Work Phone: Comment on above:Expected: 08/22/2024 (Approximate), Expires: 08/22/2025Start: 08-22-2024 End: 47-64-1241Bfntvlg encounter ffhzzldzy16/07/2025 10:00 AM EDT Office Visit [facility] [address] [place] [id number] Darleen Sinclair MD [address] [place] [address] ArrivedDOCTORS HOSPITAL ENDOCRINOLOGYComment on above:Arrived Start: 08-20-2024 End: 90-23-0815YYORWOUBW ULTRASOUND WHIOBSTETRIC ULTRASOUND WHI Anc Imaging Routine 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) Expected: 08/20/2024, Expires: 08/20/2025[facility] Work Phone: Comment on above:Expected: 08/20/2024, Expires: 08/20/2025Start: 08-20-2024 End: 86-28-3861hhscnjtzrn15/05/2025 8:30 AM EDT [facility] Reproductive Endocrinology Infertility [address] [place] [address] Melodie Hernandez APRN.STORE MERCHANDISER [address] [place] [address] preg apptReproductive Endocrinology Infertility Comment on above:preg apptStart: 07-07-2024 End: 28-54-3238Ygbysnr encounter procedureMay[facility] Comment on above:donor thawiui dStart: 05-09-2024 End: 66-37-9797wmkvdlqqco76/22/2025 8:00 AM EST [facility] Reproductive Endocrinology Infertility [address] [place] [address] Melodie Hernandez APRN.STORE MERCHANDISER [address], [place] [address] donor sperm teachReproductive Endocrinology InfertilityComment on above:donor sperm teachStart: 95-85-8283Rvayfpo referral [facility] Work Phone: Start: 03-11-2024 End: 432268-zadrqloywgvdtb D3 [Mass/volume] in Serum or PlasmaVITAMIN D 25 HYDROXY Lab Routine Reproductive mgmt, 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 Expected: 03/11/2024, Expires: 06/10/2024[facility] ClinicComment on above:Expected: 03/11/2024, Expires: 06/10/2024Start: 03-11-2024 End: 09-10-7398MWGGAAF SCREEN, EXPANDEDCARRIER SCREEN, EXPANDED Lab Routine Encounter for other genetic testing of female for procreative management Expected: 03/11/2024, Expires: 06/10/2024[facility] ClinicComment on above: Expected: 03/11/2024, Expires: 06/10/2024Start: 03-11-2024 End: 60-01-8184Rmrkeeatc trachomatis+Neisseria gonorrhoeae DNA [Presence] in Unspecified specimen by AC with probe detectionGONORRHEA/CHLAMYDIA NAAT Lab Routine Special screening examination for infectious diseases Expected: 03/11/2024, Expires: 06/10/2024[facility] ClinicComment on above:Expected: 03/11/2024, Expires: 06/10/2024Start: 03-11-2024 End: 45-26-2979Xykkqlvwxgvendn IgG Ab [Units/volume] in Serum or PlasmaCMV IGG ANTIBODY BL Lab Routine Special screening examination for infectious diseases Expected: 03/11/2024, Expires: 06/10/2024[facility] ClinicComment on above: Expected: 03/11/2024, Expires: 06/10/2024Start: 03-11-2024 End: 94-22-4055Iexylvuhgvrbclv IgM Ab [Units/volume] in Serum or PlasmaCMV IGM AB Lab Routine Special screening examination for infectious diseases Expected: 03/11/2024, Expires: 06/10/2024[facility] ClinicComment on above:Expected: 03/11/2024, Expires: 06/10/2024Start: 03-11-2024 End: 12-85-5885Avrffwupzv A1c in BloodHEMOGLOBIN A1C Lab Routine Reproductive mgmt, 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 Expected: 03/11/2024, Expires: 06/10/2024 [facility] HospitalComment [facility]:Expected: 03/11/2024, Expires: 06/10/2024Start: 03-11-2024 End: 82-49-2488Bbqpinqar B virus core Ab [Presence] in SerumHEPATITIS B CORE ANTIBODY TOTAL Lab Routine Special screening examination for infectious diseases Expected: 03/11/2024, Expires: 06/10/2024[facility] ClinicComment on above: Expected: 03/11/2024, Expires: 06/10/2024Start: 03-11-2024 End: 53-22-9608Xvymrliiq B virus surface Ag [Presence] in SerumHEPATITIS B SURFACE ANTIGEN Lab Routine Special screening examination for infectious diseases Expected: 03/11/2024, Expires: 06/10/2024[facility] ClinicComment on above:Expected: 03/11/2024, Expires: 06/10/2024Start: 03-11-2024 End: 78-51-6568Zlcsaumkt C virus Ab [Presence] in SerumHEPATITIS C ANTIBODY IA WITH CONFIRMATION Lab Routine Special screening examination for infectious d iseases Expected: 03/11/2024, Expires: 06/10/2024[facility] ClinicComment on above:Expected: 03/11/2024, Expires: 06/10/2024Start: 03-11-2024 End: 64-16-9340XVD 1+2 Ab [Presence] in Serum or Plasma by ImmunoassayHIV 1/2 COMBO WITH REFLEX TO DIFFERENTIATION Lab Routine Special screening examination for infectious diseases Expected: 03/11/2024, Expires: 06/10/2024[facility] ClinicComment on above:Expected: 03/11/2024, Expires: 06/10/2024Start: 03-11-2024 End: 70-34-6027CBLFBKE IGG ANTIBODYRUBELLA IGG ANTIBODY Lab Routine Special screening examination for infectious diseases Expected: 03/11/2024, Expires: 06/10/2024[facility] ClinicComment on above:Expected: 03/11/2024, Expires: 06/10/2024Start: 03-11-2024 End: 33-11-2841HTOWJWEA TREPONEMAL W/REFLEXSYPHILIS TREPONEMAL W/REFLEX Lab Routine Special screening examination for infectious diseases Expected: 03/11/2024, Expires: 06/10/2024[facility] ClinicComment on above:Expected: 03/11/2024, Expires: 06/10/2024Start: 03-11-2024 End: 52-61-9436VKON + SCREEN PRENATALTYPE + SCREEN Blood Bank Routine Reproductive mgmt, 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 Expected: 03/11/2024, Expires: 06/10/2024[facility] ClinicComment on above:Expected: 03/11/2024, Expires: 06/10/2024Start: 03-11-2024 End: 76-79-6836JKEXHTQOM ZOSTER IGGVARICELLA ZOSTER IGG Lab Routine Special screening examination for infectious diseases Expected: 03/11/2024, Expires: 06/10/2024[facility] Work Phone: Comment on above:Expected: 03/11/2024, Expires: 06/10/2024Start: 03-09-2024 End: 51-35-2589ohbsfevbfk51/22/2024 10:00 AM EST [facility] Reproductive Endocrinology Infertility [address] [place] [address] Melodie Hernandez APRN.STORE [employer] [address] [place] [address] Donor sperm teachReproductive Endocrinology InfertilityComment on above:Donor sperm teachStart: 02-20-2024 End: 41-05-0354Qrypkma encounter iczktygvi83/04/2024 2:50 PM EST Office Visit [facility] OB [address] [place] [phone] Les Martinez, DO [address] [place], [place] [id number] ArrivedNOMS BCP OBComment on above:ArrivedStart: 12-90-1578Eivnc-19 Vaccine ( season)Covid-19 Vaccine ( season)[facility] Hospitaltart: 92-45-3028Yqeiy-19 Vaccine ( season) Covid-19 Vaccine ( season)[facility] Hospitaltart: 61-15-3294Onsmsnqjx vaccinationInfluenza Vaccine (#1)[facility] HealthcareStart: 12-07-2023 End: 59-84-5107KvbqattcoCoshocton Regional Medical Centertart: 23-94-1697ZfbaekxdkOhiohealth CenterStart: 32-38-0311EwkkehbehOhiohealth CenterStart: 79-55-9911RvpxuadjgOhiohealth CenterStart: 67-54-1028OxujockzlCoshocton Regional Medical Centertart: 06-11-2022 End: 37-52-1579YpgtwmqcmOhiohealth CenterStart: 59-81-8009Vbduyyyd admissionCoshocton Regional Medical Centertart: 98-17-3767YvtatcinkOhiohealth CenterStart: 29-88-8067KupxrsgajCoshocton Regional Medical Centertart: 49-71-3949BgmyrfuwvCoshocton Regional Medical Centertart: 96-05-5333Ifsuswtc identified in Urine by CultureUrine CultureCoshocton Regional Medical Centertart: 12-15-7335Sbbcfhry identified in Urine by CultureUrine CultureCoshocton Regional Medical Centertart: 05-16-2020 End: 79-73-3524Gzyfyw Visit05/16/2020 Office Visit Bariatrics Rashard Olivera, [address] [facility] [address] [place] [address] [facility] Invasive Bariatric SurgStart: 05-06-2020 End: 58-00-4457Ildijied EncounterST ORComment on above:XI LAPAROSCOPIC ROBOTIC GASTRIC BYPASS BEN-EN-Y, LIVER BIOPSY, EGD- GI UNIT SCHEDULED.Start: 05-02-2020 End: 23-81-1205WSYAPCOVID- Lab Routine Pre-op testing Expected: 05/02/2020, Expires: 05/01/2021[facility] on above:Expected: 05/02/2020, Expires: 05/01/2021tart: 05-02-2020 End: 02-88-7350Kuicml VisitS[facility] Invasive Bariatric SurgStart: 71-84-2482DNQ QnTSH testingSouthwest General Health Center: 45-04-5563Orunhxbqf vaccinationFlu vaccine (#1)[facility]: 23-54-9649Lvpgrjtyx for malignant neoplasm of cervixMcCullough-Hyde Memorial Hospitaltart: 19-10-3884CGhT,Tdap and Td Vaccines (1 - Tdap)DTaP,Tdap and Td Vaccines (1 - Tdap)[facility]: 97-06-1048SFlP/Tdap/Td vaccine (1 - Tdap)DTaP/Tdap/Td vaccine (1 - Tdap)[facility]: 41-15-3961Wysukhjnk B Vaccine (1 of 3 - 19+ 3-dose series) Hepatitis B Vaccine (1 of 3 - 19+ 3-dose series)[facility]: 59-85-3880Rmopzyebs B Vaccines (1 of 3 - 19+ 3-dose series)Hepatitis B Vaccines (1 of 3 - 19+ 3-dose series)[facility]: 2014 Urine microalbumin profileDTaP,Tdap,Td Vaccine (1 - Tdap)[facility] Hospitaltart: 20-03-0021Zfkci BMI Follow Up PlanAdult BMI Follow Up PlanAngel Medical Centertart: 45-37-8738Wsomt BMI ScreeningAdult BMI ScreeningAngel Medical Centertart: 13-22-6943Yaajpup ScreeningAnxiety ScreeningMcCullough-Hyde Memorial Hospitaltart: 83-43-2674Ghpocqithn ScreeningDepression ScreeningMcCullough-Hyde Memorial Hospitaltart: 08-76-7328Fotqimihi C screeningHepatitis C ScreeningMcCullough-Hyde Memorial Hospitaltart: 05-05-9602MDX screeningHIV ScreeningMcCullough-Hyde Memorial Hospitaltart: 60-88-7474DBR screeningHIV screenSouthwest General Health Center: 02-01-3309Mzcsxsdeq vaccination Varicella Vaccines (1 of 2 - 13+ 2-dose series)[facility] Start: 46-44-7745Pcbeynxkai ScreeningDepression ScreeningFulton County Health Center Start: 93-49-0960Cgkgcqn ScreeningTobacco ScreeningAngel Medical Centertart: 01-11-6974IVY vaccine (1 - 2-dose series)HPV vaccine (1 - 2-dose series)[facility]: 53-51-1375RJI Vaccines (1 of 1 - Standard series)MMR Vaccines (1 of 1 - Standard series)[facility]: 94-74-1380Yxixcjbfu vaccine (1 of 2 - 2-dose childhood series)Varicella vaccine (1 of 2 - 2-dose childhood series)[facility]: 12-31-1637Itrltvljf C screeningHepatitis C [facility]: 28-74-4634QAU screening HIV ScreeningVeterans Health Administration: 98-42-3876Rkymm panelLipid PanelVeterans Health Administration: 48-51-7149Tllxln Adult Physical Yearly Adult PhysicalUnDunlap Memorial HospitalaPTT in Platelet poor plasma by Coagulation assayFirelands Regional Medical CenterBacteria identified in Genital specimen by Aerobe cultureKeenan Private HospitalBacteria identified in Urine by CultureUrine culture Microbiology Routine Missed menses Ordered: 09/20/2024[facility] HealthcareComment on above:Ordered: 09/20/2024alcitriol [Mass/volume] in Serum or PlasmaKeenan Private HospitalCBC W Auto Differential panel - BloodCBC and differential Lab Routine Missed menses , unspecified gestational age Ordered: 09/20/2024[facility] HealthcareComment on above:Ordered: 09/20/2024HLAMYDIA TRACHOMATIS (GENITO/STI)CHLAMYDIA TRACHOMATIS (GENITO/STI) Lab Routine Exposure to STD Ordered: 11/20/2024[facility] HealthcareComment on above:Ordered: 11/20/2024ontinuous pulse oximetryPulse oximetry, continuous Respiratory Care Routine Every 4hr until discontinued starting 05/06/2020[facility] [place], [place]Comment on above:Every 4hr until discontinued starting 05/06/2020T Abdomen and Pelvis WO and W contrast IV Keenan Private HospitalCytology Cervical or vaginal smear or scraping studyPap Smear Pathology and Cytology Routine Well woman exam with routine gynecological exam Ordered: 02/20/2024[facility] Work Phone: comment on above:Ordered: 02/20/2024Electromyography Keenan Private HospitalF5 gene mutations found [Identifier] in Blood or Tissue by Molecular genetics method NominalKeenan Private Hospital Factor VIII: C assayKeenan Private HospitalGlucose measurement estimated from glycated hemoglobinKeenan Private HospitalHemoglobin A1c/Hemoglobin.total in [facility] CenterHemoglobin A1c/Hemoglobin.total in BloodHemoglobin A1c Lab Routine Missed menses , unspecified gestational age Ordered: 09/20/2024[facility] HealthcareComment on above: Ordered: 09/20/2024Hepatitis B virus surface Ag [Presence] in Serum or Plasma by ImmunoassayHepatitis B surface antigen Lab Routine Missed menses , unspecified gestational age Ordered: 09/20/2024[facility] HealthcareComment on above: Ordered: 09/20/2024Hepatitis C virus Ab [Presence] in Serum or Plasma by ImmunoassayHepatitis C antibody Lab Routine Missed menses , unspecified gestational age Ordered: 09/20/2024[facility] HealthcareComment on above:Ordered: 09/20/2024HIV-1/HIV-2 antigen/antibody combination immunoassayHIV-1 and HIV-2 antibodies Lab Routine Missed menses , unspecified gestational age Ordered: 09/20/2024[facility] HealthcareComment on above:Ordered: 09/20/2024INR in Platelet poor plasma by Coagulation assayKeenan Private Hospital Mullerian inhibiting substance [Mass/volume] in Serum or PlasmaKeenan Private HospitalNebulizer therapyHHN Treatment Respiratory Care Routine TID until discontinued starting 05/06/2020[facility], KYComment on above: TID until discontinued starting 05/06/2020Neisseria gonorrhoeae DNA [Presence] in Unspecified specimen by AC with probe detectionNeisseria gonorrhea DNA probe, direct Lab Routine Exposure to STD Ordered: 11/20/2024[facility] Comment on above:Ordered: 11/20/2024Oxygen therapy [Minimum Data Set]Initiate Oxygen Therapy Protocol Respiratory Care Routine Daily until discontinued starting 05/06/2020[facility], KYComment on above:Daily until discontinued starting 05/06/2020atient EducationOhiohealth Ctr Work Phone: Patient referralOhiohealth Ctr Work Phone: Reagin Ab [Presence] in Serum by RPRRPR Lab Routine Missed menses , unspecified gestational age Ordered: 09/20/2024[facility] HealthcareComment on above:Ordered: 09/20/2024Rubella antibody, IgGRubella antibody, IgG Lab Routine Missed menses , unspecified gestational age Ordered: 09/20/2024[facility] HealthcareComment on above:Ordered: 09/20/2024Spirometry panelIncentive spirometry Respiratory Care Routine Every 2hr while awake until discontinued starting 05/06/2020[facility], KYComment on above:Every 2hr while awake until discontinued starting 05/06/2020URESWAB(R) ADVANCED VAGINITIS PLUS, TMASURESWAB(R) ADVANCED VAGINITIS PLUS, TMA Pathology and Cytology Routine Exposure to STD Ordered: 11/20/2024[facility] Work Phone: comment on above:Ordered: 11/20/2024Surgical Pathology Surgical Pathology Lab Routine Release Upon Ordering for 1 Occurrences starting 05/06/2020[place], [place]Comment [place]:Release Upon Ordering for 1 Occurrences starting 05/06/2020 End: 51-78-4395Dozecisltrv [Units/volume] in Serum or PlasmaTSH Lab Routine Thyroid disease every 4 weeks for 6 Occurrences starting 11/20/2024 until 11/20/2025[facility] HealthcareComment on above:every 4 weeks for 6 Occurrences starting 11/20/2024 until 11/20/2025Thyrotropin [Units/volume] in Serum or PlasmaTSH Lab Routine TSH (thyroid-stimulating hormone deficiency) Ordered: 01/16/2025[facility] HealthcareComment on above:Ordered: 01/16/2025von Willebrand factor (vWf) Ag [Units/volume] in Platelet poor plasmaKeenan Private Hospitalvon Willebrand factor (vWf) multimers in Platelet poor plasma by [facility] Hospitalvon Willebrand factor (vWf) ristocetin cofactor actual/normal in Platelet poor plasma by Platelet ag [facility] Immunizations Immunization DateImmunizationNotesCare SakgaxusZylvxibs40-81-8122lfkbvmd toxoid, reduced diphtheria toxoid, and acellular pertussis vaccine, Melvin Sinclair MD Work Phone: [facility] CenterBpmpyfzaup69-31-7512ZHOVN-65 mRNA-1273 (Moderna) MELY Ford Work Phone: [facility]04-06-2021COVID-19 mRNA-1273 (Moderna)MELY Ford Work Phone: [facility] Payers DatePayer CategoryPayerPolicy [id number] 2023Medicaid [id number] [id number] [id number] 1.2.840.209397.1.13.239.2.7.3.328399.41278-57-5702Yvsysgv [id number] 2..840.1.013659.3.579.2.78943-01-3463Yytmhci77626774 2..840.1.953152.3.57[id number] 2..840.1.660198.3.579.2.49163-69-7508Rdbcteb30631879 2..840.1.539047.3.579.[id number] 2..840.1.776211.3.579.[id number] 2..840.1.731292.3.579.2.[id number] 2..840.1.995189.3.579.2.60211-50-5895Gsvjgkj79156512 2..840.1.315812.3.579.[id number] 2.16.840.1.056318.3.57[id number] 2.840.1.526234.3.57[id number] 2.16.840.1.089758.3.579.2.30674-23-1835Okazwzd33828723 2..840.1.550006.3.579.2.80181-08-1884Iuryqku57258208 2.840.1.281699.3.579.2.[id number] 2.840.1.823128.3.579.2.179422-32-1644Xzmcunm171282773 2.0.1.455435.3.579.2.004337-85-8901Yquppww303359061 2.840.1.196854.3.57[id number] 2..1.708793.3.579.2.670278-52-7729Zdexhec30553016 2.0.1.694911.3.579.2.440300-53-6592Fzyiwmv03154406 2..1.706891.3.579.2.220169-08-7940Rexoobt35553728 2..1.626271.3.579.2.395640-05-2873Ryajxtk64013800 2.0.1.210471.3.579.2.300906-44-9092Kknoeyl69051319 2..1.736529.3.579.2.491451-10-3223Gwrpiuu03722966 2.840.1.305789.3.579.2.232746-70-9218Wnibfsq63565541 2.0.1.628907.3.579.2.660851-74-5926Eajtooc84698636 2.840.1.175239.3.579.2.478028-42-0435Olywhnd85423804 2.0.1.005684.3.579.2.724598-12-0561Dekhchi06311053 2.16.840.1.598949.3.579.2.418788-15-3525Hypsxny3259980 2.16.840.1.892668.3.579.2.1259Prpicture rockste [facility] Health Claims [id number] [id number]-g22o-[id number] 2.16.840.1.145709.67Dgikrbk35260014 2.16.840.1.811306.3.579.2.635Lomclyh31907534 2.16.840.1.088794.3.579.2.507Trvnifm89369975 2.16.840.1.823041.3.579.2.531 Social History DateTypeDetailFacilityStart: 04-22-2020 End: 38-69-1563Qgwtcpo smoking status NHISNever smokerSouthwest General Health Center: 04-22-2020 End: 33-81-2199Kzfpxmq use and exposureNever usedSouthwest General Health Center: 04-22-2020 End: 34-83-6759Uapeiwz intakeCurrent non-drinker of alcohol (finding)[facility]: 08-86-8700Nft Assigned At BirthNot on [place], [place]Exposure to SARS-CoV-2 (event)Not sureSouthwest General Health Center: 01-17-2023 Tobacco smoking statusNeverSt. Vincent Hospital CenterStart: 11-28-2023 End: 05-51-1542Mif [facility]igned At [facility] [employer] Other Start: 29-80-2816Opo Assigned At [facility] HospitalFeCleveland Clinictart: 91-27-1574Fjoirrn smoking status NHISCurrent some day smokerCoshocton Regional Medical Centertart: 04-18-2023 End: 09-40-1614Bpoogef smoking status NHISSmoker (finding)[facility] Centertart: 11-28-2023 End: 38-74-5324Kdwsncb smoking status NHISSmokes tobacco dailyNOMS Healthcare Start: 19-72-3400Oapmejz of tobacco useCigarette SmokerNOMS HealthcareStart: 11-28-2023 End: 17-53-3527Isnmdvuuao smoked current (pack per day) - Reported0.5NOMS HealthcareStart: 11-28-2023 End: 87-76-9057Dffjlqbvl beverage intakeEx-drinker (finding)[facility] Start: 95-12-8872Aylljbm Commentcaffeine: 1-2 cups per day teaNOMS Healthcare Start: 38-15-4895Qajlrt identityIdentifies as female gender (finding)[facility] HealthcareStart: 11-21-2014 End: 11-81-3818EbfJlohjp (finding)[facility] Private HospitalTobacco smoking status NHISTobacco smoking consumption unknownPort Saint Lucie ClinicStart: 95-66-7454QfwszcqocGlqmenyerCoshocton Regional Medical Centertart: 10-18-2024 End: 32-60-6418Uyshock smoking status NHISEx-smoker (finding)[facility] HospitalNEGATED: Highlighted rowTuscarawas Hospital Medical Equipment Procedure CodeEquipment CodeEquipment Original TextEquipment IdentifierDates Functional endoscopic sinus surgery (FESS) with sinuplastyBUTTON NASAL SEPTAL 3CMFDAStart: 36-88-7105Yzawwkmstm endoscopic sinus surgery (FESS) with sinuplastyBUTTON NASAL SEPTAL 3CMFDAStart: 98-44-6662Uxkklglzvw endoscopic sinus surgery (FESS) with sinuplastyBUTTON NASAL SEPTAL 3CMFDAStart: 10-15-2019 Functional endoscopic sinus surgery (FESS) with sinuplastyBUTTON NASAL SEPTAL 3CMFDAStart: 39-50-2596Yzrqkqcvbi endoscopic sinus surgery (FESS) with sinuplastyBUTTON NASAL SEPTAL 3CMFDAStart: 70-91-3948Ppkyujxmps endoscopic sinus surgery (FESS) with sinuplastyBUTTON NASAL SEPTAL 3CMFDAStart: 10-15-2019 Functional endoscopic sinus surgery (FESS) with sinuplastyBUTTON NASAL SEPTAL 3CMFDAStart: 51-22-7627Jsvrthdmzl endoscopic sinus surgery (FESS) with sinuplastyBUTTON NASAL SEPTAL 3CMFDAStart: 70-08-1100Mfjbagvncn endoscopic sinus surgery (FESS) with sinuplastyBUTTON NASAL SEPTAL 3CMFDAStart: 10-15-2019 Functional endoscopic sinus surgery (FESS) with sinuplastyBUTTON NASAL SEPTAL 3CMFDAStart: 53-21-0347Sqneyaozud endoscopic sinus surgery (FESS) with sinuplastyBUTTON NASAL SEPTAL 3CMFDAStart: 28-20-4102Qqyoebbegq endoscopic sinus surgery (FESS) with sinuplastyBUTTON NASAL SEPTAL 3CMFDAStart: 10-15-2019 Functional endoscopic sinus surgery (FESS) with sinuplastyBUTTON NASAL SEPTAL 3CMFDAStart: 78-82-3897Ehylmjgfbz endoscopic sinus surgery (FESS) with sinuplastyBUTTON NASAL SEPTAL 3CMFDAStart: 00-55-5191Axzxzyerbk endoscopic sinus surgery (FESS) with sinuplastyBUTTON NASAL SEPTAL 3CMFDAStart: 10-15-2019 Functional endoscopic sinus surgery (FESS) with sinuplastyBUTTON NASAL SEPTAL 3CMFDAStart: 42-29-6109Pbpknbutvz endoscopic sinus surgery (FESS) with sinuplastyBUTTON NASAL SEPTAL 3CMFDAStart: 00-11-7101Yhuzvkfvas endoscopic sinus surgery (FESS) with sinuplastyBUTTON NASAL SEPTAL 3CMFDAStart: 10-15-2019 Functional endoscopic sinus surgery (FESS) with sinuplastyBUTTON NASAL SEPTAL 3CMFDAStart: 32-78-9254Wpeetjumgs endoscopic sinus surgery (FESS) with sinuplastyBUTTON NASAL SEPTAL 3CMFDAStart: 37-54-0681Urkskjptqj endoscopic sinus surgery (FESS) with sinuplastyBUTTON NASAL SEPTAL 3CMFDAStart: 10-15-2019 Functional endoscopic sinus surgery (FESS) with sinuplastyBUTTON NASAL SEPTAL 3CMFDAStart: 56-87-5721Ecurum/ligament bone anchor, non-bioabsorbable ()[id number] FDAStart: 93-80-8808Pojfve/ligament bone anchor, non-bioabsorbable()[id number] FDA Start: 25-40-8504Fnnwnp/ligament bone anchor, non-bioabsorbable ()[id number] FDAStart: 09-44-0810Lcyxrf/ligament bone anchor, non-bioabsorbable()[id number] FDAStart: 12-07-2023 Goals DatePatient GoalDesired Activity/StatePersonal health goal Functional Status HeodLxerpsrjndDqsbtwSmdzfpup89-62-0919Pqbrpgguzl statusPatient at Baseline [facility] Work Phone: [phone]pwpboog statusPatient at Baseline [facility] Work Phone: Mental Status TmwyLjhqigezwjJjletqCvchspvr17-07-5137Cfesvpoer functionCognitive Status Patient at [facility] Work Phone: [phone] 562-130802-416977-70-4132Wbbqqhscz functionCognitive Status Patient at [facility] Work Phone: Clinical Notes 07-16-2021 to 02-19-2025 Note Date & JwltYfjxZfmursqv07-63-5978 History of Present illness Narrative* Alana Valverde, [...] nursing note reviewed. Exam conducted with a chief medical director present. Vitals: Estimated body mass index is 40.03 kg/m as calculated from the following: Height as of 08/22/24: 5' 11 . Weight as of this encounter: 287 lb. BP: 128/76 No LMP recorded. Patient is . Assessment/Plan ICD-10-CM 1. Third trimester ([facility]) Z34.93 POCT urinalysis dipstick manually resulted 2. 31 weeks gestation of ([facility]) Z3A.31 3. TSH (thyroid-stimulating hormone deficiency) [...] of: Les Martinez DO documented in this encounterNortheast Regional Medical [id number] History of Present illness Narrative* MELVI Engle [...] is . Assessment/Plan ICD-10-CM 1. Third trimester ([facility]) Z34.93 2. 29 weeks gestation of ([facility]) Z3A.29 POCT urinalysis dipstick manually resulted [...] behalf of: MELVI Engle documented in this encounterNortheast Regional Medical CenterUoeqnnatkb19-02-5003 History of Present illness Narrative* Mima Duenas [...] nursing note reviewed. Exam conducted with a chief medical director present. Vitals: Estimated body mass index is 38.49 kg/m as calculated from the following: Height as of 08/22/24: 5' 11 . Weight as of this encounter: 276 lb. BP: 122/80 No LMP recorded. Patient is . ASSESSMENT & PLAN ICD-10-CM 1. 26 weeks gestation of ([facility]) Z3A.26 POCT urinalysis dipstick manually resulted 2. Second trimester ([facility]) Z34.92 3. TSH (thyroid-stimulating hormone deficiency) [...] of: Mima Duenas NP documented in this encounterNortheast Regional Medical CenterGcdipstmyi11-19-3974 Miscellaneous Notes* Telephone Encounter - Roslyn Griffin RN - 01/03/2025 3:44 PM EDT Called patient to schedule her follow up survey in 4-6 weeks per appointment tracker. No answer left message to call back to schedule the follow up ultrasound. documented in this encounterFulton [facility] Center09-18-2025 Telephone encounter Note* Telephone Encounter - Roslyn Griffin RN - 01/03/2025 3:44 PM EDT Called patient to schedule her follow up survey in 4-6 weeks per appointment tracker. No answer left message to call back to schedule the follow up ultrasound. [facility]09-03-[facility] History of Present illness Narrative* MELVI Engle [...] ICD-10-CM 1. 22 weeks gestation of ([facility]) Z3A.22 POCT urinalysis dipstick manually resulted 2. Second trimester ([facility]) Z34.92 POCT urinalysis dipstick manually [...] behalf of: MELVI Engle documented in this encounterNortheast Regional Medical CenterVztybdahqd10-28-3022 History of Present illness Narrative* Enrike Lindquist [...] follows with the behavioral health up in [place] History of migraines. Has been getting some [...] Pee's thyroiditis Hx of iron deficiency anemia [place] product of in vitro fertilization (IVF) Ovarian [...] mouth in the morning., Disp: , Rfl: [id number] acid ( 19) 29 mg iron- 1 [...] Calcium: recommend 1000-1200mg daily; if deficient, recommend 3603-3243 mg PO daily in divided doses Vitamin [...] 5. 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 The ssis ssrs developer should be made awareat the time of [...] Enrike Lindquist MD, FACOG (she/hers) Maternal- Medicine [facility] [address] [place] [address] This document was created with [employer] technology. Though I make every effort to review the dictation as it is transcribed, on occasion the spoken word can be misinterpreted by the technology leading to inappropriate words, phrases, or sentences. This note is addressed to the requesting provider as a consultation for clinical guidance. Specificmedical abbreviations are occasionally used and those are generally approved by the [place]?Board of?Obstetrics and?Gynecology?as well as?Marilee s abbreviations. The above plan of care was based solely on the diagnoses for which a consultation was requested. ?More frequent testing may be indicated based on her other medical/obstetrical conditions. The management of other or medical conditions is beyond the scope of requested consultation and will c ontinue to be followed by the primary manager of internal or primary care provider. Note to patient: [...] CF Have you been seen here at [facility] in a previous ? NA Recent ER visits or hospitalizations? See notes above Bring blood sugar log or meter with you today? (Please bring them with you for every visit at [facility]) NA Flu vaccine (Feb-June)? NA Any concerns that you would like me to mention to the provider today? Questions about glucose testing and her having gastric bypass surgery documented in this encounterFulton County Health Center08-05-2025 History of Present illness Narrative* Alana Valverde [...] nursing note reviewed. Exam conducted with a chief medical director present. Vitals: Estimated body mass index is [...] DNA probe, direct 3. Second trimester ([facility]) Z34.92 POCT urinalysis dipstick manually resulted 4. 18 weeks gestation of ([facility]) Z3A.18 5. Need for maternal serum alpha-protein (MSAFP) screening ([facility]) Z36.1 Alpha fetoprotein, maternal Alpha fetoprotein, maternal 6. Screening, , for anatomic survey ([facility]) Z36.89 US OB 14+ weeks anatomy [...] of: Les Martinez DO documented in this encounterNortheast Regional Medical CenterRummssoznn69-11-4929 History of Present illness Narrative* Mima Duenas [...] nursing note reviewed. Exam conducted with a chief medical director present. Vitals: Estimated body mass index is 31.24 kg/m as calculated from the following: Height as of 08/22/24: 5' 11 . Weight as of this encounter: 224 lb. BP: 110/62 No LMP recorded. Patient is . ASSESSMENT & PLAN ICD-10-CM 1. 13 weeks gestation of ([facility]) Z3A.13 POCT urinalysis dipstick manually resulted 2. Second trimester ([facility]) Z34.92 POCT urinalysis dipstick manually resulted 3. Thyroid disease E07.9 4. H/O gastric sleeve Z90.3 5. H/O iron deficiency anemia Z86.2 6. resulting from in vitro fertilization in first trimester ([facility]) O09.811 Return OB: Patient presents today [...] of: Les Martinez DO documented in this encounterNortheast Regional Medical CenterYvzathgmhg24-07-6379 Radiology Diagnostic study [facility] [place] [address] [place] [address] Ultrasound Report Signed Patient: Jaz Sanders MR#: [id number] : 1995 Acct:[id number] Age/Sex: 29 / F ADM Date: 5 Loc: ER Room: Type: [facility] ER Attending Dr: Ordering Provider: [...] Jr., D.ORenae 10/18/2024 2:21 PM Dictation Location: [place] [address] Tech: Natalie Raissa Transcribed By: MAITE 10/18/24 1421 Dictated By: Sravan Dickinson Jr, DO 10/18/24 1419 Signed By: 10/18/24 1421 [facility]06-05-2025 History of Present illness Narrative * [...] screen, urine; Future Nurse Note: Patient declined [place] at this time. Patient is an IVF from [facility]. OB Intake: Patient presents today for first OB visit. Patients history has been reviewed in great detail including any potential risks. Patient signed consent forms and patient desires testing in both trimesters. Patient currently has no complaints and has been advised to drink 6-8 glasses of water a day, eatno raw or undercooked meat, and stay away from [facility]. Patient has also been advised to not [...] by: Marsha Asif MA documented in this encounterNortheast Regional Medical CenterZxwdtoeexy09-28-5818 NoteHNO ID: [id number] Author: MELODIE HERNANDEZ APRN.STORE MERCHANDISER Service: ? Author Type: Nurse Practitioner Type: [...] 3. Cycle Day: Last menstrual period: 07/19/2024 [place] Protocol: UNIVERSAL PROTOCOL / SAFETY CHECKLIST Procedure [...] DATE: September 05, 2024 TIME: 10:45 [facility]05-19-2025 History of Present illness Narrative* Manisha Weaver [...] 03, 2024 5:39 PM documented in this encounterEast [facility] Regional Hospital05-19-2025 NoteHNO ID: [id number] Author: MANISHA WEAVER APRN.CNP Service: ? Author [...] Plan Move on to OB Manisha Weaver APRN.STORE MERCHANDISER September 03, 2024 5:39 [facility]05-15-2025 NoteHNO ID: [id number] Author: MIKEY TORRES MD Service: ? Author Type: Physician Type: Progress Notes Filed: 08/30/2024 16:36 Note Text: Viable ratliff IUP Size equal Date. Plan: patient to follow up with her ob for care. Stacy Banuelos [facility]05-15-2025 History of Present illness Narrative* Mikey [...] scheduled Melodie Hernandez APRN.JARROD documented in this encounterEast [facility] Hospital05-13-2025 NoteHNO ID: [id number] Author: MELODIE HERNANDEZ APRN.CNP Service: ? Author [...] scan next week as scheduled Melodie Hernandez APRN.CNPFulton County Health Center05-09-2025 Telephone encounter Note* Telephone Encounter - Melodie [...] open slot. Call to patient needed: no [facility]05-09-2025 Miscellaneous Notes* Telephone Encounter - Melodie Hernandez [...] schedule the patient for the following- Location: [facility] Provider: nurse Visit type: scan Reason for visit/appointment notes: scan Date: 08/28 Time (requested): 1110 If slot is full, please schedule the closest open slot. Call to patient needed: no * Telephone Encounter - Angella Mccarthy - 08/23/2024 10:37 AM EDT Name: Jaz Sanders called today. : 1995 (home) [phone] (cell) Reason for call: pt called today informing the nurse she has been experiencing pain of level 4 from1-10. Pt has been experiencing pain for 2 day. 5 weeks today. The patients preferred pharmacy has been captured for this encounter? Angella Morillo Air Conditioning Service Technician documented in this encounterEast [facility] Regional Hospital05-09-2025 Telephone encounter Note * Telephone Encounter - Arminda Ward RN - 08/24/2024 1:58 PM EDT See 08/23/24 LIBBY Ward RN August 24, 2024 1:58 PM [facility]05-09-2025 Miscellaneous Notes* Telephone Encounter - Arminda Ward RN - 08/24/2024 1:58 PM EDT See 08/23/24 LIBBY Ward RN August 24, 2024 1:58 PM * Telephone Encounter - Manisha Ding - 08/24/2024 11:52 AM EDT Pt would like a call back documented in this encounterEast [facility] Hospital05-09-2025 Telephone encounter Note * Telephone Encounter - Manisha Ding - 08/24/2024 11:52 AM EDT Pt would like a call back [facility]05-08-2025 Telephone encounter Note* Telephone Encounter - Angella Mccarthy - 08/23/2024 10:37 AM EDT Name: Jaz Sanders called today. : 1995 (home) [phone] (cell) Reason for call: pt called today informing the nurse she has been experiencing pain of level 4 from1-10. Pt has been experiencing pain for 2 day. 5 weeks today. The patients preferred pharmacy has been captured for this encounter? Angella Morillo Air Conditioning Service Technician [facility]05-08-2025 Telephone encounter Note* Telephone Encounter - Arminda Ward RN - 08/23/2024 8:53 AM EDT See 08/20 Distance health visit Arminda Ward RN August 23, 2024 8:53 AM [facility]05-08-2025 Miscellaneous Notes* Telephone Encounter - Arminda Ward RN - 08/23/2024 8:53 AM EDT See 08/20 Distance health visit Arminda Ward RN August 23, 2024 8:53 AM documented in this encounterEast [facility] Regional Hospital05-07-2025 History of Present illness Narrative* Darleen Sinclair [...] levothyroxine 50 mcg daily, administered in the satellite installation technician on an empty stomach. There have [...] 1 year (around 08/22/2025). documented in this encounterNortheast Regional Medical CenterIjwdhzcffq53-47-4893 NoteHNO ID: [id number] Author: MELODIE HERNANDEZ APRN.STORE MERCHANDISER Service: ? Author Type: Nurse Practitioner Type: [...] visit. Either the patient or their legal operations support representative has been informed of the risks [...] providers Schedule with OB: 09/13 Melodie Hernandez APRN.STORE MERCHANDISER August 20, 2024 8:33 AM Please schedule the patient for the following- Location: [place] Provider: nurse Visit type: Reason for visit/appointment notes: scan Date: 09/03 Time (requested): 1040 If slot is full, please schedule the closest open slot. Call to patient needed: no I spent a total of 30 minutes on the date of the service which included preparing to see the patient, [id number] patient care, completing clinical documentation, obtaining and/or [...] be grammatical and typographical errors missed in proofreading.[facility]05-05-2025 History of Present illness Narrative* Melodie Hernandez [...] visit. Either the patient or their legal operations support representative has been informed of the risks [...] schedule the patient for the following- Location: [place] Provider: nurse Visit type: Reason for visit/appointment notes: scan Date: 09/03 Time (requested): 1040 If slot is full, please schedule the closest open slot. Call to patient needed: no I spent a total of 30 minutes on the date of the service which included preparing to see the patient, [id number] patient care, completing clinical documentation, obtaining and/or [...] errors missed in proofreading. documented in this encounterEast [facility] Hospital05-01-2025 Telephone encounter Note * Telephone Encounter - Daniel Hanna APRN.CNP - 08/16/2024 5:15 PM EDT Called patient back to phone number listed in [email or web address]-no answer. Lm for patient to look out for Mychart message. Daniel Hanna APRN.CNP August 16, 2024 5:15 PM [facility]05-01-2025 Miscellaneous Notes* Telephone Encounter - Daniel Hanna APRN.CNP - 08/16/2024 5:15 PM EDT Called patient back to phone number listed in [email or web address]-no answer. Lm for patient to look out for Mychart message. Daniel Hanna APRN.CNP August 16, 2024 5:15 PM * Telephone Encounter - Angella Mccarthy - 08/16/2024 12:29 PM EDT Name: Jaz Sanders called today. : 1995 (home) [phone] (cell) Reason for call: pt called that she got positive test, she has been having having cramping since last night , it happens every hours for couple minutes. The patients preferred pharmacy has been captured for this encounter? yes Angella Morillo Air Conditioning Service Technician documented in this encounterEast [facility] Regional Hospital05-01-2025 Telephone encounter Note * Telephone Encounter - Angella Mccarthy - 08/16/2024 12:29 PM EDT Name: Jaz Sanders called today. : 1995 (home) [phone] (cell) Reason for call: pt called that she got positive test, she has been having having cramping since last night , it happens every hours for couple minutes. The patients preferred pharmacy has been captured for this encounter? yes Angella Morillo Air Conditioning Service Technician [facility]04-30-2025 Telephone encounter Note* Telephone Encounter - Manisha Ding - 08/15/2024 2:10 PM EDT Pt is preg and wants to know if she can take benadryl due to her having hives [facility]04-30-2025 Miscellaneous Notes* Telephone Encounter - Manisha Ding - 08/15/2024 2:10 PM EDT Pt is preg and wants to know if she can take benadryl due to her having hives documented in this encounterEast Ohio Regional Hospital04-15-2025 NoteHNO ID: [id number] Author: DOMINGUEZ BARRY, ? Service: ? Author Type: Financial Reporting Specialist Type: Progress Notes Filed: 09/05/2024 22:45 Note Text: IUI Cryobio Donor # [id number] Pre: frozen washed specimen Post: 82 M/ml, 67% Insem # 27.5 millionFulton County Health Center04-15-2025 NoteHNO ID: [id number] Author: DOMINGUEZ BARRY, ? Service: ? Author Type: Financial Reporting Specialist Type: Progress Notes Filed: 07/31/2024 15:26 Note Text: Thaw for IUI. [facility] CruzSelect [facility] History of Present illness Narrative* Dominguez Barry - 07/31/2024 3:25 PM EDT Thaw for IUI. Dominguez Barry documented in this encounterEast Ohio Regional Hospital04-15-2025 NoteHNO ID: [id number] Author: DOMINGUEZ BARRY, ? Service: ? Author Type: Financial Reporting Specialist Type: Progress Notes Filed: 09/05/2024 22:45 Note Text: IUI specimen released to provider Dominguez Barry July 31, 2024 3:24 [facility]04-15-2025 NoteHNO ID: [id number] Author: MUSTAPHA TELLO MA Service: ? Author Type: Recycling Assistant Type: Progress Notes Filed: 07/31/2024 15:12 Note Text: Patient verified by full name and date of . Jaz Sanders is here today for an IUI. LMP: 07/19/2024 Natural cycle IUI Timed With: Ovulation Predictor Kit , Date: 07/30/2024 Clinical Data Management Director offered: Patient declines Mustapha Tello MA July 31, 2024 3:12 [facility]04-14-2025 Telephone encounter Note* Telephone Encounter - Melodie Hernandez APRN.CNP - 07/30/2024 5:58 PM EDT patient's OPK today was dark but not positive Plan: test again tomorrow. 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, schedule IUI the same day Melodie Hernandez APRN.CNP July 30, 2024 6:00 PM [facility]04-14-2025 Miscellaneous Notes* Telephone Encounter - Melodie Hernandez APRN.CNP - 07/30/2024 5:58 PM EDT patient's OPK today was dark but not positive Plan: test again tomorrow. 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 Service: ? Author Type: Financial Reporting Specialist Type: Progress Notes Filed: 07/19/2024 07:50 Note Text: IUI Cryobio #[id number] Washed frozen specimen Post: 31 m/ml, 77% Insem#: 10.8 millionFulton County Health Center03-23-2025 History of Present illness Narrative* Nichelle Gonzalez E - 07/08/2024 8:07 AM EDT IUI Cryobio #[id number] Washed frozen specimen Post: 31 m/ml, 77% Insem#: 10.8 million * Nichelle Gonzalez - 07/07/2024 10:10 AM EDT IUI specimen released to provider Nichelle Gonzalez July 07, 2024 10:10 AM documented in this encounterEast [facility] Regional Hospital03-22-2025 NoteHNO ID: [id number] Author: NICHELLE GONZALEZ, ? Service: ? Author Type: Financial Reporting Specialist Type: Progress Notes Filed: 07/19/2024 07:50 Note Text: IUI specimen released to provider Nichelle Gonzalez July 07, 2024 10:10 [facility]03-22-2025 NoteHNO ID: [id number] Author: MIKEY TORRES MD Service: ? Author [...] Cycle Day: 14 Last menstrual period: 06/24/2024 [place] Protocol: UNIVERSAL PROTOCOL / SAFETY CHECKLIST Procedure [...] the primary surgeon/proceduralist with assistance. Stacy Banuelos, [facility]03-22-2025 Procedure note* Mikey Torres MD - [...] Cycle Day: 14 Last menstrual period: 06/24/2024 [place] Protocol: UNIVERSAL PROTOCOL / SAFETY CHECKLIST Procedure [...] primary surgeon/proceduralist with assistance. Stacy Banuelos MD [facility]03-22-2025 Procedure note* Mikey Torres MD - [...] Cycle Day: 14 Last menstrual period: 06/24/2024 [place] Protocol: UNIVERSAL PROTOCOL / SAFETY CHECKLIST Procedure [...] assistance. Stacy Banuelos MD documented in this encounterEast Ohio Regional Hospital03-22-2025 NoteHNO ID: [id number] Author: NICHELLE GONZALEZ, ? Service: ? Author Type: Financial Reporting Specialist Type: Progress Notes Filed: 07/07/2024 09:41 Note Text: Thaw for IUI Nichelle GonzalezFulton County Health Center03-22-2025 History of Present illness Narrative* Nichelle Gonzalez - 07/07/2024 9:41 AM EDT Thaw for IUI Nichelle Gonzalez documented in this encounterEast Ohio Regional Hospital03-21-2025 Telephone encounter Note * Telephone Encounter [...] Isaacs PA-C July 06, 2024 3:26 PM [facility]03-21-2025 Miscellaneous Notes* Telephone Encounter - Becki Isaacs [...] iui tomorrow. Pleasecall patient. documented in this encounterEast Ohio Regional Hospital03-21-2025 Telephone encounter Note * Telephone Encounter - Sivan Roberto - 07/06/2024 2:39 PM EDT Patient states she is calling back unsure about if she is okay to proceed with iui tomorrow. Pleasecall patient. [facility]03-21-2025 Telephone encounter Note* Telephone Encounter - Arminda Ward RN - 07/06/2024 11:17 AM EDT See other TE for 07/04 Arminda Ward RN July 06, 2024 11:17 AM [facility]03-21-2025 Miscellaneous Notes* Telephone Encounter - Arminda Ward [...] to be removed first. documented in this encounterEast Ohio Regional Hospital03-20-2025 Telephone encounter Note * Telephone Encounter - Sivan Roberto - 07/05/2024 3:02 PM EDT On day 11 now, inquiring about if okay to proceed with iui with cervical polyp. Patient believes itwill be tomorrow or Tuesday for iui- inquiring if polyp needs to be removed first. [facility]03-19-2025 Telephone encounter Note* Telephone Encounter - Melodie [...] Hernandez APRN.CNP July 04, 2024 7:30 PM [facility]03-19-2025 Miscellaneous Notes* Telephone Encounter - Melodie Hernandez [...] 04, 2024 7:30 PM documented in this encounterEast Ohio Regional Hospital03-19-2025 NoteHNO ID: [id number] Author: IGNACIO GUY MD Service: ? Author Type: Physician Type: Progress Notes Filed: 07/04/2024 16:27 Note Text: [facility]CSelect [facility] [place]03-19-2025 History of Present illness Narrative* Ignacio Guy MD - 07/04/2024 4:27 PM EDT 1 documented in this encounterEast Ohio Regional Hospital02-22-2025 NoteHNO ID: [id number] Author: IGNACIO GUY MD Service: ? Author [...] Cycle Day: 13 Last menstrual period: 05/28/2024 [place] Protocol: UNIVERSAL PROTOCOL / SAFETY CHECKLIST Procedure [...] was discussed with the patient or authorized operations support representative. The patient or authorized operations support representative has agreed to proceed with the sensitive examination. (Sensitive examination includes inspection and/or palpation of the breasts, pelvis, prostate and anorectal regions) Patient declined chief medical director. Vidhi Sheldon MD IUI IUI Date: 06/09/24 [...] stopped. Will get pelivc scan here at [facility] if not with this IUI prior pt proceeding with another attmept at IUI. Ignacio Guy MD June 09, 2024 12:30 PM SIGNATURE: Vidhi Sheldon MD PATIENT NAME: Jaz Sanders DATE: June 09, 2024 TIME: 12:01 [facility]02-22-2025 Procedure note* Vidhi Sheldon MD - 06/09/2024 [...] Cycle Day: 13 Last menstrual period: 05/28/2024 [place] Protocol: UNIVERSAL PROTOCOL / SAFETY CHECKLIST Procedure [...] was discussed with the patient or authorized operations support representative. The patient or authorized operations support representative has agreed to proceed with the sensitive examination. (Sensitive examination includes inspection and/or palpation of the breasts, pelvis, prostate and anorectal regions) Patient declined chief medical director. Vidhi Sheldon MD IUI IUI Date: 06/09/24 [...] stopped. Will get pelivc scan here at [facility] if not with this IUI prior pt proceeding with another attmept at IUI. Ignacio Guy MD June 09, 2024 12:30 PM SIGNATURE: Vidhi Sheldon MD PATIENT NAME: Jaz Sanders DATE: June 09, 2024 TIME: 12:01 PM [facility] Work Phone: [phone] 834-582002-22-2025 Procedure note* Vidhi Sheldon MD - 06/09/2024 [...] Cycle Day: 13 Last menstrual period: 05/28/2024 [place] Protocol: UNIVERSAL PROTOCOL / SAFETY CHECKLIST Procedure [...] was discussed with the patient or authorized operations support representative. The patient or authorized operations support representative has agreed to proceed with the sensitive examination. (Sensitive examination includes inspection and/or palpation of the breasts, pelvis, prostate and anorectal regions) Patient declined chief medical director. Vidhi Sheldon MD IUI IUI Date: 06/09/24 [...] stopped. Will get pelivc scan here at [facility] if not with this IUI prior pt proceeding with another attmept at IUI. Ignacio Guy MD June 09, 2024 12:30 PM SIGNATURE: Vidhi Sheldon MD PATIENT NAME: Jaz Sanders DATE: June 09, 2024 TIME: 12:01 PM documented in this encounterEast [facility]02-[facility]-2025 NoteHNO ID: [id number] Author: NICHELLE GONZALEZ, ? Service: ? Author Type: Financial Reporting Specialist Type: Progress Notes Filed: 06/09/2024 12:30 Note Text: IUI Cryobio #: [id number] Washed frozen sample Post: 42 m/ml, 74% Insem#: 15.5 [facility] History of Present illness Narrative* Nichelle Gonzalez - 06/09/2024 11:52 AM EST IUI Cryobio #: [id number] Washed frozen sample Post: 42 m/ml, 74% Insem#: 15.5 million * Nichelle Gonzalez - 06/09/2024 11:24 AM EST IUI specimen released to provider Nichelle Gonzalez June 09, 2024 11:24 AM documented in this encounterEast Ohio Regional Hospital02-22-2025 NoteHNO ID: [id number] Author: NICHELLE GONZALEZ, ? Service: ? Author Type: Financial Reporting Specialist Type: Progress Notes Filed: 06/09/2024 11:48 Note Text: Thaw for IUI [facility]le E [facility]lyF[facility]02-22-2025 History of Present illness Narrative* Nichelle Gonzalez - 06/09/2024 11:47 AM EST Thaw for IUI Nichelle Colt Larrykimberly documented in this encounterEast Ohio Regional Hospital02-22-2025 NoteHNO ID: [id number] Author: NICHELLE GONZALEZ, ? Service: ? Author Type: Financial Reporting Specialist Type: Progress Notes Filed: 06/09/2024 12:30 Note Text: IUI specimen released to provider Nichelle Gonzalez June 09, 2024 11:24 [facility]01-22-2025 Instructions* Patient Instructions* Melodie Hernandez APRN.STORE MERCHANDISER - 05/09/2024 9:08 AM EST Images from [...] more than one and store with the [facility]. Mailing address: Attention: Nichelle Gonzalez [address] [place] [address], [place] [address] Storage at the [facility] is available. Fees are yearly and only start once you are not actively trying. Please ask the financial team ([phone]) for current cost information. Donor Insemination Scheduling [...] please call the office [place] [address] Available every day, including weekends and holidays (except Zulay and New Years.) Weekday IUI scheduling The day you get your LH surge, please call [phone] between 8:00am - 12:00pm to schedule your insemination for the next day. If you call after 12pm, we may not be able to schedule your appointment. IUI s are done by appointment only. You will make 2 appointments -an arrival time and a procedure time. [place]: [address] [place] [address], [address] [place] [address] Available every day, including weekends and holidays (except [place] and New Years.) Available for IUI using fresh and frozen samples. Check in location for sperm wash and IUI: [address] [facility]. The sperm wash takes 60-90 minutes. [...] confirm your treatment plan. Important phone number: [phone] documented in this encounterEast Ohio Regional Hospital01-22-2025 NoteHNO ID: [id number] Author: MELODIE HERNANDEZ APRN.CNP Service: ? Author [...] visit. Either the patient or their legal operations support representative has been informed of the risks [...] negative donor is a carrier of: CFTR, [id number] Vial types available: IUI and ART Considerations [...] which included preparing to see the patient, jddv-vv-uzeg patient care, completing clinical documentation, obtaining and/or [...] medical team. Standard se (more content not included)...[facility] 05-09-2024 History of Present illness Narrative* Melodie [...] visit. Either the patient or their legal operations support representative has been informed of the risks [...] them. No double whammies. Sperm bank/donor #: [email or web address] [id number] Blood type: A negative CMV Status: negative Genetic carrier considerations: patient Myriad negative donor is a carrier of: CFTR, [id number] Vial types available: IUI and ART Considerations [...] which included preparing to see the patient, dsre-vc-hiky patient care, completing clinical documentation, obtaining and/or [...] errors missed in proofreading. documented in this encounterEast Ohio Regional Hospital01-15-2025 History of Present illness Narrative* Nola Enriquez, PhD - 05/02/2024 2:00 PM EST Psychosocial Consultation for Third Libertarian Reproduction Virtual visit with audio and visual equipment POS 10 No SI, Falls, Tobacco use On May 02, 2024, I met virtually with Jaz and Sravan Sanders. They were referred by Melodie Hernandez at [facility] for their required psychosocial consultation regarding third democrat reproduction. Relevant History Jaz, 29, and Demetrius, 26, have been together for 8.5 years and for 6.5 years. 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 Demetrius also works at that [employer]. The couple has been trying to conceive [...] Lynda's have already chosen a donor from [facility] in [place]. They chose this donor because heis CMV-, [...] third democrat reproductive option. documented in this [facility] Work Phone: 1(161) 274-851211-24-2024 NoteHNO ID: [id number] Author: MELODIE HERNANDEZ APRN.STORE MERCHANDISER Service: ? Author Type: Nurse Practitioner Type: [...] visit. Either the patient or their legal operations support representative has been informed of the risks [...] Practice cycle Plan: Episode created.Reviewed checklist - Notice Kioskhart message sent Practice cycle: recommended OPKs to test for ovulation and timing of IUIs, patient to call with +OPK, confirm ovulation with progesterone level Follow up once checklist is complete to discuss test results and next steps. Melodie Hernandez APRN.STORE MERCHANDISER March 11, 2024 10:42 PM I spent a total of 55 minutes on the date of the service which included preparing to see the patient, vfmj-jo-wjzj patient care, completing clinical documentation, obtaining and/or [...] be grammatical and typographical errors missed in proofreading.[facility]11-24-2024 History of Present illness Narrative* Melodie Hernandez APRN.STORE MERCHANDISER - 03/11/2024 10:42 PM EST Images from [...] visit. Either the patient or their legal operations support representative has been informed of the risks [...] Practice cycle Plan: Episode created.Reviewed checklist - Altobridge message sent Practice cycle: recommended OPKs to [...] which included preparing to see the patient, jlcq-nb-rwfi patient care, completing clinical documentation, obtaining and/or [...] errors missed in proofreading. documented in this encounterEast Ohio Regional Hospital11-22-2024 Instructions* Patient Instructions* Melodie Hernandez APRN.CNP - [...] question, please call the office. ~Silvia MELY Hernandez.[facility] [phone] Donor Sperm Checklist Donor Sperm Labs Mandatory [...] Sravan must be present Amanda Gillespie MD ([place]) - [phone] Rani Sims (Filomena Hernandez) - [phone] - virtual visit Nola Destin, - virtual [...] to date). Please get scheduled with your gas fitter or pcp if needed. Practice with Ovulation Predictor Kit (OPK) First day of full flow is cycle day #1. Start using on ovulation predictor kit on cycle day 10. Use your OPK once a day, in the morning with your second urine of the day. Send in a Yeswarehart message when you get a positive OPK. [...] Once your checklist is complete, please call [phone] to get scheduled for a donor sperm follow up appointment. Sperm Bank Website [place] [facility] https://www.cryobank.com/ [facility] https://cryobio.com/ [facility] [employer] https://www.cryosinternational.com/ [place] [facility] https://Karma Recycling.Sophia Learning/ [place] [facility] https://www.Mantis Digital Arts.Sophia Learning/ [facility] [place] https://www.thespermbankAssistera.org/ [place] [facility] https://www.Alltech Medical Systems.Sophia Learning/ [facility] https://www.Red Dot Payment.Sophia Learning/ If you would like to start browsing [...] is needed. Test: CPT Code: Blood type 15642 HIV 62843 CMV IgG 72421 CMV IgM 63549 Syphilis 19016 Hepatitis B Surface Ag 29752 Hepatitis B Core Ab, IgG and IgM 14276 Hepatitis C Ab 49205 Rubella 13677 Varicella 08472 Chlamydia 54394 Gonorrhea 57667 For the above tests, reference the diagnosis code of Z11.9 documented in this encounterEast Ohio Regional Hospital11-12-2024 Plan of care note* JAMEL Plan Note [...] for three cycles. They will meet with TILE DITCHER to review the IUI checklist and sign consents. I spent a total of 45 minutes on the date of the service which included preparing to see the patient, pyrq-ql-nuyq patient care, completing clinical documentation, counseling and educating the patient/family/caregiver, and ordering medications, tests, or procedures. Ignacio Guy MD [facility]11-12-2024 Miscellaneous Notes* JAMEL Plan Note - Ignacio [...] for three cycles. They will meet with TILE DITCHER to review the IUI checklist and sign consents. I spent a total of 45 minutes on the date of the service which included preparing to see the patient, yabm-sw-luii patient care, completing clinical documentation, counseling and educating the patient/family/caregiver, and ordering medications, tests, or procedures. Ignacio Guy MD documented in this encounterEast Ohio Regional Hospital11-12-2024 Instructions* Patient Instructions* Ignacio Guy MD - 02/28/2024 2:47 PM EST Dear Jaz Sanders Using donor sperm at the [facility] requires some set up (outlined below). Requirements to use donor sperm at the [facility]: Teaching with JAMEL SKYLAR - please call [phone] to schedule a donor sperm teach with [...] to help with the donor selection process. Kyruus Carrier Screen is the test ordered. Processing time takes 2-3 weeks. If your insurance doesn't cover it, the self-pay de oliveira is ~$250. Counselor You and your partner/spouse (if applicable) must see a counselor for a donor sperm assessment. Amanda Gillespie MD ([place]) - [phone] Rani Sims ([place] & [place]) - [phone] Doris Lama ([place]) - [phone] Consent form - must be signed by [...] Required Tests Test: CPT Code: Blood type 50512 HIV 74422 CMV IgG 66420 CMV IgM 07124 Syphilis 48590 Hepatitis B Surface Ag 41040 Hepatitis B Core Ab, IgG and IgM 67863 Hepatitis C Ab 55546 Rubella 67944 Varicella 44456 Chlamydia 88731 Gonorrhea 04506 For the above tests, reference the diagnosis code of Z31.49. MeSixty Foresight Carrier Screen - Me[employer]ty will check coverage for you. For this [...] your test results into consideration. Sperm Bank [facility] [place] [facility] ([place]) [facility] [employer] ([facility] [place]) [facility] *Do not order any sperm until your checklist is complete. We will review ordering instructions at your follow up visit. Next Steps: Call insurance to verify coverage for donor sperm panel. Schedule donor sperm teach with my nurse practitioner, Silvia Hernandez. Ignacio Guy MD [phone] documented in this encounterEast Ohio Regional Hospital11-12-2024 NoteHNO ID: [id number] Author: IGNACIO GUY MD Service: ? Author [...] OB History Obstetric History No data available LEATHER CLEANER HISTORY: Patient's last menstrual period was 02/18/2024. 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 They will meet with TILE DITCHER to review the IUI checklist and sign consents. I spent a total of 45 minutes on the date of the service which included preparing to see the patient, npkv-un-uchs patient care, completing clinical documentation, counseling and educating the patient/family/caregiver, and ordering medications, tests, or procedures. Ignacio Guy [facility]11-12-2024 History of Present illness Narrative* Ignacio [...] OB History Obstetric History No data available LEATHER CLEANER HISTORY: Patient's last menstrual period was 02/18/2024. 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 They will meet with TILE DITCHER to review the IUI checklist and sign consents. I spent a total of 45 minutes on the date of the service which included preparing to see the patient, yynh-mc-zdmr patient care, completing clinical documentation, counseling and educating the patient/family/caregiver, and ordering medications, tests, or procedures. Ignacio Guy MD documented in this encounterEast Ohio Regional Hospital11-11-2024 Evaluation note* Diagnosis Onset Date Resolution Status Admit Date Degenerative superior labral anterior-to -posterior (SLAP) tear of right matthias acuteNovember 2023 2:25pmLaxity of ligamentacuteNovember 2023 2:25pm Multidirectional instability of glenohumeral jointacuteNovember 2023 2:25pmOther instability, right shoulderacuteNovember 2023 2:25pmRight carpal tunnel syndromeacuteNovember 2023 2:25pmStatus post arthroscopy of right shoulderacuteNovember 2023 2:25pmStatus post surgerynoneactive February 27, 2024 2:25pmDegenerative superior labral muciztsl-ad-kcxkwxfth (SLAP) tear of right shoacuteJanuary 2024 2:29pmLaxity of ligamentacute April 23, 2024 2:29pmMultidirectional instability of glenohumeral jointacute April 23, 2024 2:29pmOther instability, right shoulderacuteJanuary 2024 2:29pmRight carpal tunnel syndromeacuteJanuary 2024 2:29pmStatus post arthroscopy of right shoulderacuteJanuary 2024 2:29pm [facility] Work Phone: 1(390) 888-808411-11-2024 Evaluation note* Diagnosis Onset Date Resolution Status Admit Date Degenerative superior labral anterior-to -posterior (SLAP) tear of right matthias acuteNovember 2023 2:25pmLaxity of ligamentacuteNovember 2023 2:25pm Multidirectional instability of glenohumeral jointacuteNovember 2023 2:25pmOther instability, right shoulderacuteNovember 2023 2:25pmRight carpal tunnel syndromeacuteNovember 2023 2:25pmStatus post arthroscopy of right shoulderacuteNovember 2023 2:25pmStatus post surgerynoneactive February 27, 2024 2:25pmDegenerative superior labral dhclicdd-bq-yzzlamoew (SLAP) tear of right shoacuteJanuary 2024 2:29pmLaxity of ligamentacute April 23, 2024 2:29pmMultidirectional instability of glenohumeral jointacute April 23, 2024 2:29pmOther instability, right shoulderacuteJanuary 2024 2:29pmRight carpal tunnel syndromeacuteJanuary 2024 2:29pmStatus post arthroscopy of right shoulderacuteJanuary 2024 2:29pmAcute urticariaacute April 26, 2024 8:29amHypothyroidacuteJanuary 2024 8:29amOther chronic painacuteJanuary 2024 8:29am [facility] Work Phone: 1(792) 657-418811-04-2024 History of Present illness Narrative* Marsha Asif [...] nursing note reviewed. Exam conducted with a chief medical director present. Vitals: Estimated body mass index is [...] behalf of: TRENT Engle documented in this encounterNortheast Regional Medical CenterDhqcrggqpv10-82-5464 Note [id number]09-03-2024 Evaluation note* Diagnosis Onset Date Resolution Status Admit Date Degenerative superior labral anterior-to -posterior (SLAP) tear of right matthias acuteSeptember 2023 10:11amLaxity of ligamentacuteSeptember 2023 10:11amMultidirectional instability of glenohumeral jointacuteSeptember 2023 10:11amOther instability, right shoulderacuteSeptember 2023 10:11am Right carpal tunnel syndromeacuteSeptember 2023 10:11amStatus post arthroscopy of right shoulderacuteSeptember 2023 10:11amStatus post surgery noneactiveSeptember 2023 10:11amDegenerative superior labral iubgyyxi-hh-njjgmqsgj (SLAP) tear of right shoacuteOctober 2023 11:58am Laxity of ligamentacuteOctober 2023 11:58amMultidirectional instability of glenohumeral jointacuteOctober 2023 11:58amOther instability, right shoulderacuteOctober 2023 11:58amRight carpal tunnel syndromeacuteOctober 2023 11:58amStatus post arthroscopy of right shoulderacuteOctober 2023 11:58amStatus post surgerynoneactiveOctober 2023 11:58amDegenerative superior labral wnrpbaqs-jr-kinyoyuwl (SLAP) tear of right shoacuteNovember 2023 2:25pmLaxity of ligamentacuteNovember 2023 2:25pm Multidirectional instability of glenohumeral jointacuteNovember 2023 2:25pmOther instability, right shoulderacuteNovember 2023 2:25pmRight carpal tunnel syndromeacuteNovember 2023 2:25pmStatus post arthroscopy of right shoulderacuteNovember 2023 2:25pmStatus post surgerynoneactive November 2023 2:25pm [facility] Work Phone: 1(350) 549-349407-17-2024 NoteEducation Materials Orthopedics Musculoskeletal Pain Musculoskeletal pain [...] mouth or applied to the skin. Take mgqt-bfa-jjddegb and prescription medicines only as told by [...] provider. Document Revised: 08/07/2020 Document Reviewed: 07/16/2020 IP Commerce Patient Education ? 2022 Léa et Léo.[facility] CenterTfoozfho55-60-6114 Evaluation note* Encounter Date Diagnosis Assessment Notes Treatment Notes Treatment Clinical Notes Apr, Intertrigo (ICD-10 - L30.4) [facility] Other 01-30-2024 Evaluation note* Encounter Date Diagnosis [...] pain of right shoulder (ICD-10 - M25.511) [facility] Other 01-05-2024 Evaluation note* Encounter Date Diagnosis Assessment Notes Treatment Notes Treatment Clinical Notes Apr, Other iron deficiency anemia (IC D-10 - D50.8) [facility] Other 12-28-2023 Evaluation note* Encounter Date Diagnosis Assessment Notes Treatment Notes Treatment Clinical Notes Mar, Vitamin D deficiency (ICD-10 - E 55.9) [facility] Other 10-23-2023 Evaluation note* Encounter Date Diagnosis [...] agreement for this and referral was given. [facility] Other 09-21-2023 Evaluation note* Encounter Date Diagnosis Assessment Notes Treatment Notes Treatment Clinical Notes Dec, Other iron deficiency anemia (IC D-10 - D50.8) Dec,Low folic acid (ICD-10 - E53.8) [facility] Other 09-11-2023 Evaluation note* Encounter Date Diagnosis [...] andcontinue to do the exercises for strength. [facility] Other 07-06-2023 Evaluation note* Encounter Date Diagnosis Assessment Notes Treatment Notes Treatment Clinical Notes Oct, Iron deficiency (ICD-10 - E61.1) [facility] Other 06-26-2023 Evaluation note* Encounter Date Diagnosis [...] symptoms and causing pain down the arm. [facility] Other 06-15-2023 Evaluation note* Encounter Date Diagnosis [...] verbalizes understanding and agrees c tx plan. [facility] Other 05-10-2023 Evaluation note* Encounter Date Diagnosis [...] follow-up if no improvement. She verbalizes understnading. [facility] Other 05-05-2023 Evaluation note* Encounter Date Diagnosis Assessment Notes Treatment Notes Treatment Clinical Notes August, Acquired hypothyroidism (ICD-10 - E03.9) Discussed with pt symptoms and lab resutls. Discussed treatment and evaluation. Referral placed to Dr. Sinclair. August,Hashimoto's disease (ICD-10 - E06.3) [place] [facility] Other 02-24-2023 Progress note Author Farhad [facility] June 11, 2022 1:16pmNote Date/TimeFebruary 2022 1:07pm[place] [address] Hospitalist Progress Note Signed Patient: Jaz Sanders MR#: [id number] : 1995 Acct:[id number] Age/Sex: 27 / F Adm Date: 3 Loc: 4N Room: 7Z7883-5 Type: ADM IN Attending Dr: Farhad Gallego [...] days. Patient has an appointment with her KING MAKER next week. Educated her to go to ED if she continues to have heavy bleeding with symptoms, she verbalized understanding. We will send patient home on iron supplements and docusate as needed for constipation Patient is being discharged today. Documented By: Farhad Gallego MD 06/11/22 1306 Signed By: <Electronically signed by Farhad Gallego MD> 06/11/22 1316 [facility] Work Phone: 1(564) 825-957002-23-2023 History and physical note Author Farhad Gallego [facility] June 10, 2022 6:28pmNote Date/TimeFebruary 2022 5:39pmBrooklyn[place] [address] Hospitalist H&P Signed Patient: Jaz Sanders MR#: [id number] : 1995 Acct:[id number] Age/Sex: 27 / F Adm Date: 3 Loc: Room: [address] [place] [address] Type: ADM INOo Attending Dr: Farhad Gallego MD Copies to: MD Amanda Correa, DRY CANS OPERATOR, STORE MERCHANDISER~ HPI DATE OF EXAMINATION: 06/10/22 CHIEF COMPLAINT: [...] % (Auto) 41.3 % (.) 06/10/22 14:51 [place] % (Auto) 6.8 % (.) 06/10/22 14:51 Eos % (Auto) 5.0 % (.) 06/10/22 14:51 Baso % (Auto) 1.8 % (.) 06/10/22 14:51 Nucleat RBC Rel Count 0.1 /100 WBC (0-0.5) 06/10/22 14:51 Neut # (Auto) 2.4 x10E3/uL (1.8-7.7) 06/10/22 14:51 Lymph # (Auto) 2.2 x10E3/uL (1.00-4.8) 06/10/22 14:51 [place] # (Auto) 0.4 x10E3/uL (0.0-0.8) 06/10/22 14:51 [...] code Documented By: Farhad Gallego MD 06/10/22 1663 Signed By: <Electronically signed by Farhad Gallego MD> 06/10/22 [address] [facility] Work Phone: 1(804) 759-251501-04-2023 Evaluation note* Encounter Date Diagnosis Assessment Notes [...] for bleeding. Keep appointment with Dr. Elder. [facility] Other 12-13-2022 Evaluation note* Encounter Date Diagnosis Assessment Notes Treatment Notes Treatment Clinical Notes Mar, Arthritis of shoulder (ICD-10 - M19.019) [facility] Other 12-06-2022 Evaluation note* Encounter Date Diagnosis [...] she had offered her treatement for this. [facility] Other 11-30-2022 Evaluation note* Encounter Date Diagnosis Assessment Notes Treatment Notes Treatment Clinical Notes Feb, Gastroesophageal ref lux disease without esophagitis (ICD-10 - K21.9) [facility] Other 10-24-2022 Evaluation note* Encounter Date Diagnosis [...] to trial the ointment. Follow-up as needed. [facility] Other 05-11-2022 NoteEchocardiology Procedure Exam Date/Time Accession # Ordering Echo Transthoracic 08/25/2021 15:36 EDT [id number] Jay DAVEY, Samir Rivera CPT code 01938 Reason for Exam (Echo Transthoracic Complete) Bradycardia;Other [...] Mariam Salazar MD Transcribed by: kerry Technologist: [facility]04-21-2022 Note Echocardiology Procedure Exam Date/Time Accession # Ordering ECG Stress Exercise 08/06/2021 10:22 EDT [id number] Jay DAVEY, Samir Rivera CPT code 69798 Reason for Exam (ECG Stress Exercise) bradycardia;Other [...] Mariam Salazar MD Transcribed by: marixa Technologist: [facility]03-31-2022 Evaluation note* Encounter Date Diagnosis Assessment [...] school on two different occasions.Order faxed to [employer]. Jun,Gastroesophageal reflux disease without esophagitis (ICD-10 - [...] a [employer]. Jun,Former smoker (ICD-10 - Z87.891) [facility] [employer] Other Evaluation + Plan note Future Appointments Appointment Date:08/06/2021 09:30:00 AM Scheduled [facility] Type:CV Stress (FT) Appointment Date:08/06/2021 11:00:00 AM Scheduled Provider: [facility] Appoint[facility] Type:CV Holter/Event (FT) Future Scheduled Tests Radiology* Echo Transthoracic Complete 07/24/21 * ECG [facility] Appointment Date:08/11/2021 10:30:00 AM Scheduled Provider:Samir Thompson MD [facility] Appointment Type:Cardiology Follow Up (FT) [facility] Future Appointments Appointment Date:09/01/2021 02:30:00 PM Scheduled Provider:Samir Thompson MD Location[facility] Appointment Type:Cardiology [facility] (FT[facility] Future Appointments Appointment Date:2022 11:15:00 AM Scheduled Provider:Samir Thompson MD Location:.[facility] Appointment Type:Cardiology Follow Up (FT) [facility] noteNo InformationNortEncompass Health Rehabilitation [facility] [employer] Other Evaluation noteNo assessment information available [facility] Work Phone: Evaluation note* Diagnosis Onset Date Resolution Status Anemia acuteAnxiety and depressionacuteBipolar disorderacuteIron deficiency anemiaacute [facility] Work Phone: evaluation note* Diagnosis Onset Date Resolution Status Abdominal pain acuteChillsacuteConstipationacuteFeveracuteH/O gastric sleeveacuteVomitingacute [facility] Work Phone: Evaluation note* Diagnosis Onset Date Resolution Status [id number] acuteLaxity of ligamentacuteMultidirectional instability of glenohumeral joint acuteNumbness of right handacuteOther instability, right shoulderacute [facility] Work Phone: Evaluation note* Diagnosis Onset Date Resolution Status [id number] acuteLaxity of ligamentacuteMultidirectional instability of glenohumeral joint acuteNumbness of right handacuteOther instability, right shoulderacute SEC-[id number]-[id number] of ligamentacuteMultidirectional instability of glenohumeral jointacuteNumbness of right handacuteOther instability, right shoulderacuteRight carpal tunnel syndromeacute [facility] Work Phone: Evaluation note* Diagnosis Onset Date Resolution Status [id number] acuteLaxity of ligamentacuteMultidirectional instability of glenohumeral joint acuteNumbness of right handacuteOther instability, right shoulderacute JVW-[id number]-[id number] of ligamentacuteMultidirectional instability of glenohumeral jointacuteNumbness of right handacuteOther instability, right shoulderacuteRight carpal tunnel pcihtvcdzivcuITD-OULP-[id number] of ligamentacuteMultidirectional instability of glenohumeral jointacuteOther instability, right shoulderacuteRight carpal tunnel syndromeacute [facility] Work Phone: Evaluation note* Diagnosis Onset Date Resolution Status [id number] acuteLaxity of ligamentacuteMultidirectional instability of glenohumeral joint acuteNumbness of right handacuteOther instability, right shoulderacute JHF-SZIN-[id number] of ligamentacuteMultidirectional instability of glenohumeral jointacuteNumbness of right handacuteOther instability, right shoulderacuteRight carpal tunnel cnmxkxbuarvhbSKU-MFYV-[id number] of ligamentacuteMultidirectional instability of glenohumeral jointacuteOther instability, right shoulderacuteRight carpal tunnel syndromeacute BIW-VLZC-[id number] of ligamentacuteMultidirectional instability of glenohumeral jointacuteOther instability, right shoulderacuteRight carpal tunnel syndromeacuteStatus post arthroscopy of right shoulderacute [facility] Work Phone: Evaluation note* Diagnosis Onset Date Resolution Status [id number] acuteLaxity of ligamentacuteMultidirectional instability of glenohumeral joint acuteNumbness of right handacuteOther instability, right shoulderacuteRight carpal tunnel mfmwropddiwqcXII-FASG-[id number] of ligamentacute Multidirectional instability of glenohumeral jointacuteOther instability, right shoulderacuteRight carpal tunnel hzjlfxfonofluEEN-QMPL-[id number] of ligamentacuteMultidirectional instability of glenohumeral jointacuteOther instability, right shoulderacuteRight carpal tunnel syndromeacuteStatus post arthroscopy of right shoulderacuteStatus post surgerynoneactive XGE-[id number]-[id number] of ligamentacuteMultidirectional instability of glenohumeral jointacuteOther instability, right shoulderacuteRight carpal tunnel syndromeacuteStatus post arthroscopy of right shoulderacuteStatus post surgery noneactive [facility] Work Phone: Evaluation note* Diagnosis Well woman exam with routine gynecological exam Routine gynecological examination [facility] 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 [facility] Diagnosis Reproductive mgmt, 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 Special screening examination for infectious diseases Screening examination for unspecified infectious disease Encounter for other genetic testing of female for procreative management documented [facility]* Diagnosis Bipolar 1 disorder (Multi)- Primary Infertility counseling documented in this encounter [facility] Work Phone: Evaluation note* Diagnosis Treatment plan provided- Primary [facility] Diagnosis Reproductive mgmt, 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 [facility]* Diagnosis Procreative management- Primary Unspecified procreative management [facility]* Diagnosis Female infertility- Primary Female infertility of unspecified origin [facility] Fertility testing- Primary Female infertility Female infertility of unspecified origin [facility]* Diagnosis Encounter for fertility planning [Z31.89]- Primary Other specified procreative management [facility]* Diagnosis Encounter for artificial insemination- Primary Artificial insemination documented [facility]* Diagnosis 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)- Primary [facility]* Diagnosis 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)- Primary [facility]* Diagnosis Abnormal thyroid function test- Primary Nonspecific abnormal results of thyroid function study 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[facility]) Unspecified nontoxic nodular goiter Vitamin D deficiency documented in this encounter [facility]* Diagnosis 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) [facility]* Diagnosis Early stage of (HCC) state, incidental [facility]* Diagnosis Amenorrhea Absence of menstruation 9 weeks gestation of Missed menses , unspecified gestational age Encounter for supervision of normal first in first trimester documented in this encounter [facility]* Diagnosis 13 weeks gestation of ([facility]) Second trimester ([facility]) state, incidental Thyroid disease Unspecified disorder of thyroid H/O gastric sleeve H/O iron deficiency anemia resulting from in vitro fertilization in first trimester ([facility]) documented in this encounter [facility]* Diagnosis Well woman exam with routine gynecological exam Routine gynecological examination Exposure to STD Second trimester ([facility]) state, incidental 18 weeks gestation of ([facility]) Need for maternal serum alpha-protein (MSAFP) screening ([facility]) Screening, , for anatomic survey ([facility]) Encounter for anatomic survey Thyroid disease Unspecified disorder of thyroid documented in this encounter [facility]* Diagnosis Previous gastric bypass affecting , antepartum- Primary Hypothyroidism affecting in second trimester 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 ([facility]) Obesity affecting in second trimester, [...] in second trimester [facility] Diagnosis 22 weeks gestation of ([facility]) Second trimester ([facility]) state, incidental Thyroid disease Unspecified disorder of thyroid H/O gastric sleeve H/O iron deficiency anemia Diabetes mellitus screening Screening for diabetes mellitus documented in this encounter [facility]* Diagnosis Previous gastric bypass affecting , antepartum- Primary Hypothyroidism affecting in second trimester 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 (CMS-HCC) Obesity affecting in second trimester, unspecified obesity type documented in this encounter [facility]* Diagnosis 26 weeks gestation of ([facility]) Second trimester ([facility]-HCC) state, incidental TSH (thyroid-stimulating hormone deficiency) Other specified acquired hypothyroidism documented in this encounter [facility]* Diagnosis Third trimester ([facility]HS-HCC) state, incidental 29 weeks gestation of ([facility]-HCC) documented in this encounter [facility]Evaluation note* Diagnosis Hypothyroidism affecting in second trimester- Primary headache in second trimester Previous gastric bypass affecting , antepartum 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 (CMS-HCC) [facility]* Diagnosis Third trimester ([facility]HS-HCC) state, incidental 31 weeks gestation of ([facility]) TSH (thyroid-stimulating hormone deficiency) Other specified acquired hypothyroidism H/O gastric sleeve documented in this encounter [facility] general Narrative - Reported* Type Description Date Surgical History cholecystectomy 2014 Surgical History gastric sleeve 2020 [facility] Other History general Narrative - Reported* Type Description Date Medical History Hypothyroidism Medical HistoryMNGMedical HistoryenuresisMedical Historyextreme obesityMedical HistoryGERD with esophagitisMedical HistoryheadacheMedical HistoryGoiter, nontoxic, multinodularMedical HistoryVitamin D deficiencySurgical History bjtllqxwyivuftd9235Xktnimnl Zvaqskgjgzdqzyjypdrjoc2338Jjiibgfu Historygastric kdgheh3408Ckrlrrmsrcgobmv HistoryAnemia05/2022 [facility] Other Hospital course Narrative No data available for this section [facility] Discharge instructions No data available for this section [facility] Discharge instructions Additional Instructions POSTOPERATIVE INSTRUCTIONS FOR SHOULDER LABRAL REPAIR Romeo Santana DO Orthopedic Surgeon [facility] GENERAL INSTRUCTIONS: Use ice packs to the [...] office immediately. Romeo Santana DO Orthopedic Surgeon [facility] Office: [address] [place], [place] [address] Office number: [phone] [facility] Work Phone: Hospital Discharge instructionsAmbulatory Orders* Referral to Allergy/Immunology Time Frame: 04/26/24, Location: None Selected [facility] Work Phone: Hospital Discharge instructions Additional Instructions We evaluated you for your vaginal bleeding in . Your ultrasound was normal, the baby has a good heart rate, measuring at 13 weeks and 1 day. Your cervix was closed. Follow-up closely with your KING MAKER. Return to the emergency department if you develop any worsening or concerning symptoms.[facility] Work Phone: InstructionsNot on filedocumented in this encounter [facility] SystemInstructionsNot on filedocumented in this encounter [facility] HStreaming SystemInstructions* Attachments The following attachments cannot be sent through Care Everywhere. * Preeclampsia (Equatorial [place]) documented in this encounterProBatu Biologics SystemInstructionsNot on file documented in this encounterProMediga HStreaming SystemInstructionsNot on file documented in this encounterProSt. Mary[facility] CampusLifeNexus SystemReason for referral (narrative)No reason for referral information availableOhio [facility] Work Phone: Reason for visit Narrative* Consult, Test, Treat (Routine) - ClosedSpecialtyDiagnoses / ProceduresReferred By ContactReferred To ContactREPRODUCTIVE ENDOCRINOLOGY & FERTILITY Diagnoses Encounter for procreative management, unspecified Encounter for other procreative management Procedures ARTIFIC INSEMINATION INTRAUTERIN THAWING CRYOPRESERVED SPERM/SEMEN EACH ALIQUOT Daniel Hanna APRN.[employer] [address] [place] [address] Phone: tel: fax: Reproductive Endocrinology Infertility [address] [place] [address] Phone: tel: Referral IDStatusReasonStart DateExpiration DateVisits RequestedVisits [id number] Financial Clearance Required - Self Pay Patient Cleared - True Self-Pay required payment collected Do Not Bill Insurance - SP patient [facility] for visit Narrative* Diagnostic Procedure Only (Routine) - AuthorizedSpecialtyDiagnoses / ProceduresReferred By ContactReferred To ContactASPIR[facility] Diagnoses Fertility testing Procedures PELVIC US WHI US PELVIC NONOBSTETRIC REAL-TIME IMAGE COMPLETE Ignacio Guy MD [address] [place] [address] Phone: tel: fax: [facility] [address] [place] [address] Referral IDStatusReasonStart DateExpiration DateVisits RequestedVisits [id number] Auto-Generated Referral Patient Cleared - True Self-Pay required payment collected Do Not Bill Insurance - SP patient / [facility] for visit Narrative* Consult, Test, Treat (Routine) - ClosedSpecialtyDiagnoses / ProceduresReferred By ContactReferred To Contact [facility] Diagnoses Encounter for procreative management, unspecified Encounter for other procreative management Procedures THAWING CRYOPRESERVED SPERM/SEMEN EACH ALIQUOT ARTIFIC INSEMINATION INTRAUTERIN Daniel Hanna APRN.[employer] [address] [place] [address] Phone: tel: fax: Reproductive Endocrinology Infertility [address] [place] [address] Phone: tel: Referral IDStatusReasonStart DateExpiration DateVisits RequestedVisits [id number] Patient Cleared - True Self-Pay required payment collected Do Not Bill Insurance - SP patient / [facility] for visit Narrative* Financial Clearance (Routine) - ClosedSpecialtyDiagnoses / ProceduresReferred By ContactReferred To Contact FINANCE Diagnoses Collect for IUI-D washed sample Procedures THAWING CRYOPRESERVED SPERM/SEMEN EACH ALIQUOT ARTIFIC INSEMINATION INTRAUTERIN FINANCIAL CLEARANCE PHONE CALL Self Financial Clearance Phone Screening [place] [address] Referral IDStatusReasonStart DateExpiration DateVisits RequestedVisits [id number] Financial Clearance Required - Self Pay Patient Cleared - True Self-Pay required payment collected Do Not Bill Insurance - SP patient / [facility] for visit Narrative* Diagnostic Procedure Only (Routine) - ClosedSpecialtyDiagnoses / ProceduresReferred By ContactReferred To Contact [facility] Diagnoses 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) Procedures OBSTETRIC ULTRASOUND WHI US PREG UTERUS AFTER 1ST TRIMEST GESTATION Melodie Hernandez APRN.[employer] [facility] [address] [place] [address] Phone: tel: fax: [place] [address] Referral IDStatusReasonStart DateExpiration DateVisits RequestedVisits [id number] Auto-Generated Referral / [facility] for visit Narrative* Diagnostic Procedure Only (Routine) - ClosedSpecialtyDiagnoses / ProceduresReferred By ContactReferred To Contact [facility] Diagnoses Early stage of (HCC) Procedures OBSTETRIC ULTRASOUND WHI US PREG UTERUS AFTER 1ST TRIMEST GESTATION Melodie Hernandez APRN.[employer] [facility] [address] [place] [address] Phone: tel: fax: [place] [address] Referral IDStatusReasonStart DateExpiration DateVisits RequestedVisits [id number] Auto-Generated Referral / [facility] Advance Directives TypeDate RecordedPatient RepresentativeExplanationACP-Advance DirectiveACP-Power of [...] drive you home after your procedure. Your compressed air pile driver operator must be 18 years of age or [...] questions, call the Pre-Admission Testing Unit at [phone]. Day of Surgery/Procedure As a patient at [facility] you can expect quality medical and nursing care that is centered on your individual needs. Our goal is to make your surgical experience as comfortableas possible . Directions to the Surgery Center [facility] is located at [address] [place] [address]. Please pull into the Emergency parking lot and stop at the sephora product consultant dotson. We offer free sephora product consultant service for all our surgery patients, if you choose not to have sephora product consultant parking we have additional parking across the street.You will enter the facility following the [facility] sign. Please stop at the office coordinator receptionist desk where you will be checked in by the staff. If you have any questions please call [phone]. Transportation after your procedure. You will need a friend or family member to drive you home after your procedure. Your compressed air pile driver operator must be18 years of age or older [...] may shave your face or neck. ? [place] your teeth but do not swallow water. [...] or the day of surgery, please call [phone], or [phone] documented in this encounter* Instructions* Mukesh Montez, [...] 48 hours call the anesthesia department at [phone]. Will you need pain medication? The nerve [...] block please phone the Anesthesiology Department at [phone]. If the phone does not get answered please contact the hospital industrial locomotive operator at [phone] to page the production packager anesthesiologist Discharge Instructions for Bariatric Surgery You had a Laparoscopic Sleeve Gastrectomy (09085) surgery to treat obesity. Recovery from this [...] scheduled appointment, please call the office at [phone]. Call Your Doctor If Any of the [...] AM EST CLINICAL PHARMACY NOTE: MEDS TO [facility] Select Patient?: No Total # of Prescriptions Filled: 3 The following medications were delivered to the patient: Oxycodone-acetaminophen 5/325 mg tab Cyclobenzaprine 10 mg tab Enoxaparin 60mg /0.6 ml syr Total # of Interventions Completed: 1 Time Spent (min): 60 Additional Documentation:called case managers about the high co-pay on the enoxaparin [...] SHOULDER DI SCUSS SURGERY Reason for Visit [id number] Laxity of ligament Multidirectional instability of glenohumeral joint Numbness of right hand Other instability, right shoulder Chief Complaint OP SP RT SHOULDER DI SCUSS SURGERY R20.0Reason for RslgfKIL-[id number] Laxity of ligament Multidirectional instability of glenohumeral joint Numbness of right hand Other instability, right shoulder Chief Complaint OP SP RT SHOULDER DI SCUSS SURGERY R20.0 EMG RESULTSReason for QsorgGMN-WBYN-[id number] Laxity of ligament Multidirectional instability of glenohumeral joint Numbness of right hand Other instability, right shoulder [id number]-[id number] Laxity of ligament Multidirectional instability of glenohumeral joint Numbness of right hand Other instability, right shoulder Right carpal tunnel syndrome Chief Complaint OP SP RT SHOULDER DI SCUSS SURGERY R20.0 EMG RESULTS Shoulder painReason for XbzanRHV-[id number] Laxity of ligament Multidirectional instability of glenohumeral joint Numbness of right hand Other instability, right shoulder [id number] Laxity of ligament Multidirectional instability of glenohumeral joint Numbness of right hand Other instability, right shoulder Right carpal tunnel syndrome Chief Complaint OP SP RT SHOULDER DI SCUSS SURGERY R20.0 EMG RESULTS Shoulder pain H & P RIGHT SHOULDER ARTHROSCOPY 41-39-15Grjimt for FpndeCCG-[id number] Laxity of ligament Multidirectional instability of glenohumeral joint Numbness of right hand Other instability, right shoulder [id number]-[id number] Laxity of ligament Multidirectional instability of glenohumeral joint Numbness of right hand Other instability, right shoulder Right carpal tunnel syndrome PGM-[id number] Laxity of ligament Multidirectional instability of glenohumeral joint Other instability, right shoulder Right carpal tunnel syndrome Chief Complaint OP SP RT SHOULDER DI SCUSS SURGERY R20.0 EMG RESULTS Shoulder pain H & P RIGHT SHOULDER ARTHROSCOPY 12-07-23 Shoulder pain Shoulder painReason for GpzefJOW-SLIZ-[id number] Laxity of ligament Multidirectional instability of glenohumeral joint Numbness of right hand Other instability, right shoulder VPD-[id number] Laxity of ligament Multidirectional instability of glenohumeral joint Numbness of right hand Other instability, right shoulder Right carpal tunnel syndrome [id number] Laxity of ligament Multidirectional instability of glenohumeral joint Other instability, right shoulder Right carpal tunnel syndrome Chief Complaint OP SP RT SHOULDER DI SCUSS SURGERY R20.0 EMG RESULTS Shoulder pain H & P RIGHT SHOULDER ARTHROSCOPY 12-07-23 Shoulder pain Shoulder pain 10-14 DAYS POST OPReason for HsabcNOF-[id number] Laxity of ligament Multidirectional instability of glenohumeral joint Numbness of right hand Other instability, right shoulder [id number]-[id number] Laxity of ligament Multidirectional instability of glenohumeral joint Numbness of right hand Other instability, right shoulder Right carpal tunnel syndrome BXY-[id number] Laxity of ligament Multidirectional instability of glenohumeral joint Other instability, right shoulder Right carpal tunnel syndrome [id number] Laxity of ligament Multidirectional instability of glenohumeral joint Other instability, right shoulder Right carpal tunnel syndrome Status post arthroscopy of right shoulder Chief Complaint R20.0 EMG RESULTS Shoulder pain H & P RIGHT SHOULDER ARTHROSCOPY 12-07-23 Shoulder pain Shoulder pain 10-14 DAYS POST OP R20.0 4 WEEKSReason for TxqakNOP-[id number] Laxity of ligament Multidirectional instability of glenohumeral joint Numbness of right hand Other instability, right shoulder Right carpal tunnel syndrome ISZ-[id number] Laxity of ligament Multidirectional instability of glenohumeral joint Other instability, right shoulder Right carpal tunnel syndrome MRA-[id number] Laxity of ligament Multidirectional instability of glenohumeral joint Other instability, right shoulder Right carpal tunnel syndrome Status post arthroscopy of right shoulder Status post surgery [id number] Laxity of ligament Multidirectional instability of glenohumeral [...] for Visit Admit Date Degenerative superior labral aafxywoa-nc-hfmwmxaqn (SLAP) tear of right matthias December 20, 2023 10:11am Laxity of ligament December 20, 2023 10:11am Multidirectional instability of glenohum eral joint December 20, 2023 10:11am Other instability, right shoulder Septem 2023 10:11am Right carpal tunnel syndrome December 192023 10:11am Status post arthroscopy of right shoulde r December 20, 2023 10:11am Status post surgery December 20, 2023 10:11am Degenerative superior labral anblxdgf-as-gybengjut (SLAP) tear of right matthias January 17, 2024 11:58am Laxity of ligament January 17, 2024 11 :58am Multidirectional instability of glenohum eral joint January 17, 2024 11:58am Other instability, right shoulder Octobe 2023 11:58am Right carpal tunnel syndrome January 11:58am Status post arthroscopy of right shoulde r January 17, 2024 11:58am Status post surgery January 17, 2024 11 :58am Degenerative superior labral odkwfsnb-ha-codwwullm (SLAP) tear of right matthias February 27, [...] for Visit Admit Date Degenerative superior labral cxeaavbh-rl-qzcighdmd (SLAP) tear of right matthias February 27, 2024 2:25pm Laxity of ligament February 27, 2024 2:25pm Multidirectional instability of glenohum eral joint February 27, 2024 2:25pm Other instability, right shoulder Novemb er 2023 2:25pm Right carpal tunnel syndrome February 262023 2:25pm Status post arthroscopy of right shoulde r February 27, 2024 2:25pm Status post surgery February 27, 2024 2:25pm Degenerative superior labral ndjouzjr-vl-gmdlxkznk (SLAP) tear of right matthias April 23, [...] for Visit Admit Date Degenerative superior labral pfojeljz-zq-ojfyannzs (SLAP) tear of right matthias February 27, 2024 2:25pm Laxity of ligament February 27, 2024 2:25pm Multidirectional instability of glenohum eral joint February 27, 2024 2:25pm Other instability, right shoulder Novemb er 2023 2:25pm Right carpal tunnel syndrome February 262023 2:25pm Status post arthroscopy of right shoulde r February 27, 2024 2:25pm Status post surgery February 27, 2024 2:25pm Degenerative superior labral vibckizn-tc-mseeuikha (SLAP) tear of right matthias April 23, [...] d labrum, initial encounter (S43.431A) Referral Organization [facility] [place] Referring Provider First Name Petr Referring Provider Last Name Alireza Referring Provider Specialty Family Prac bret Referred Organization [facility] Referred Address [address] [place], [place],[address] Referred Provider Specialty Orthopaedic Surgery Referral Priority Routine Reason evaluate Diagnosis 1 Acquired hypothyroid ism (E03.9) 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) Referral Organization [facility] [place] Referring Provider First Name Amanda Referring Provider Last Name Logan Referring Provider Specialty Nurse Pract itioner Referred Organization [facility] Referred Provider Darleen Sinclair Referred Address [address],[place], [place],[address] Referred Provider Specialty Endocrinolog y Referral Priority Routine General Notes Fore, Chelsi M 023 11:26:34 AM >Received today and waiting for office notes to be locked before sending referral Additional Source Comments Reason for Visit (unrecogniz ed section and content) StatusReasonSpecialtyDiagnoses / ProceduresReferred By ContactReferred To Contact Diagnoses Morbid obesity (HCC) MORBID OBESITY, HYPOTHYROID Procedures OR LAP GASTRIC BYPASS/BEN-EN-Y XI LAPAROSCOPIC ROBOTIC GASTRIC BYPASS BEN-EN-Y, LIVER BIOPSY, EGD- GI UNIT SCHEDULED. Rashard Olivera, [address] [facility] [address] [place] [address] [facility] ReasonCommentsGynecologic ExamReasonCommentsInfertilitySpecialtyDiagnoses / ProceduresReferred By ContactReferred To ContactREPRODUCTIVE ENDOCRINOLOGY & FERTILITY Diagnoses Female infertility, unspecified Procedures VV OFFICE/OP CONSLTJ NEW/EST PT MOD MDM 40 MINUTES Pcp, Ana Rosa, DRY CANS OPERATOR [facility] [address] [address] [place] [address] Referral IDStatusReasonStart DateExpiration DateVisits RequestedVisits [id number] Financial Clearance Required - Self Pay Patient Cleared - True Self-Pay required payment collected Do Not Bill Insurance - SP patient Financial Clearance Not Required [id number] sperm teachSpecialtyDiagnoses / ProceduresReferred By ContactReferred To ContactREPRODUCTIVE ENDOCRINOLOGY & FERTILITY Diagnoses Infertility counseling Procedures OFFICE/OUTPATIENT ESTABLISHED MOD MDM 30 MIN Melodie Hernandez, MELY.[facility] [address] [facility] [address] [id number] [facility] [address] [address] [place] [address] Referral IDStatusReasonStart DateExpiration DateVisits RequestedVisits [id number] Financial Clearance Required - Self Pay Patient Cleared - True Self-Pay required payment collected Do Not Bill Insurance - SP patient /[id number] / ProceduresReferred By ContactReferred To ContactREPRODUCTIVE ENDOCRINOLOGY & FERTILITY Diagnoses Encounter for fertility testing Procedures OFFICE/OUTPATIENT ESTABLISHED LOW MDM 20 MIN [facility] [address] [place] [address] [facility] [address] [place] [address] Referral IDStatusReasonStart DateExpiration DateVisits RequestedVisits [id number] Financial Clearance Required - Self Pay Patient Cleared - True Self-Pay required payment collected Do Not Bill Insurance - SP patient [id number] PlanningReasonCommentsre iui this wknd/has cervical polyp questionReasonCommentsPatient [...] content) DATE CREATED AUTHOR 05/08/2020 [facility] DATE CREATED AUTHOR 'S ORGANIZ ATION 03/31/2021 [facility] DATE CREATED AUTHOR AUTHOR'S ORGANIZ ATION 09/04/2021 [facility] DATE CREATED AUTHOR AUTHOR'S ORGANIZ ATION 04/19/2024 [facility] DATE CREATED AUTHOR AUTHOR'S ORGANIZ ATION 05/05/2024 [facility] DATE CREATED AUTHOR AUTHOR'S ORGANIZ ATION 09/12/2024 [facility] DATE CREATED AUTHOR AUTHOR'S ORGANIZ ATION 10/05/2024 [facility] DATE CREATED AUTHOR AUTHOR'S ORGANIZ ATION 12/07/2024 [facility] DATE CREATED AUTHOR AUTHOR'S ORGANIZ ATION 12/07/2024 [facility] DATE CREATED AUTHOR AUTHOR'S ORGANIZ ATION 02/08/2025 [facility] DATE CREATED AUTHOR AUTHOR'S ORGANIZ ATION 02/21/2025 [facility] EPIC Care Teams (unrecognized sec tion and content) Team Status: Inactive Member Role Status Dates Mariam Appiah MD Primary Care Provider Active Amanda Ford APRN TILE DITCHER-CAttenrocky ProviderActive Team Status: Inactive Member Role Status Dates Amanda Ford APRN TILE DITCHER-C Primary Care Provider Active Dariel Howell ProviderActive Team Status: Inactive Member Role Status Dates Amanda Ford APRN TILE DITCHER-C Primary Care Provider Active Michelle Zhang ProviderActive Team Status: Active Member Role Status Dates Amanda Ford APRN TILE DITCHER-C Primary Care Provider Active Team Status: Inactive Member Role Status Dates Amanda Ford APRN TILE DITCHER-C Primary Care Provider, Attending Provider Active Team Status: Active Member Role Status Dates Amanda Ford APRN TILE DITCHER-C Primary Care Provider Active Dariel Howell ProviderActiveFarhad Gallego , MDAdmit Provider, Attending ProviderActive Team Status: Inactive Member Role Status Dates Amanda Ford APRN TILE DITCHER-C Primary Care Provider Active Dariel Howell ProviderActiveAnoDasilvaLashonda , MDAdmit Provider, Attending ProviderActive Team Status: Inactive Member Role Status Dates Amanda Ford APRN TILE DITCHER-C Primary Care Provider Active Silva Greco ProviderActive Team Status: Inactive Member Role Status Dates Provider Conversion Attending Provider Active St art: May 17, 2023 End: May 17, 2023 Team Status: Inactive Member Role Status Dates Amanda Ford APRN TILE DITCHER-C Primary Care Provider, Attending Provider Active Start: June 08, 2023 End: June 08, 2023 Team Status: Active Member Role Status Dates Amanda Ford APRN TILE DITCHER-C Primary Care Provider, Attending Provider Active Start: September 15, 2023 Team Status: Inactive Member Role Status Dates Amanda Ford APRN TILE DITCHER-C Primary Care Provider Active Start: October 13, 2023 End: October 13, 2023Romeo Santana DOAttending ProviderActiveStart: October 13, 2023 End: October 13, 2023 Team Status: Inactive Member Role Status Dates Amanda Ford APRN TILE DITCHER-C Primary Care Provider Active Start: October 26, 2023 End: October 26, 2023Romeo Santana DOAttending ProviderActiveStart: October 26, 2023 End: October 26, 2023 Team Status: Inactive Member Role Status Dates Amanda Ford APRN TILE DITCHER-C Primary Care Provider Active Start: November 01, 2023 End: November 01, 2023Romeo Santana DOAttending ProviderActiveStart: November 01, 2023 End: November 01, 2023 Team Status: Inactive Member Role Status Dates Amanda Ford APRN TILE DITCHER-C Primary Care Provider Active Start: November 28, 2023 End: November 28, 2023Romeo Santana DOAttending ProviderActiveStart: November 28, 2023 End: November 28, 2023 Team Status: Inactive Member Role Status Dates Amanda Ford APRN TILE DITCHER-C Primary Care Provider Active Start: December 01, 2023 End: December 01, 2023Romeo Santana DOAttending ProviderActiveStart: December 01, 2023 End: December 01, 2023 Team Status: Inactive Member Role Status Dates Amanda Ford APRN TILE DITCHER-C Primary Care Provider Active Start: December 07, 2023 End: December 07, 2023Romeo aSntana DOAttending ProviderActiveStart: December 07, 2023 End: December 07, 2023 Team Status: Active Member Role Status Dates Amanda Ford APRN TILE DITCHER-C Primary Care Provider Active Start: December 07, 2023 Romeo Santana DOAttending Provider, Other ProviderActiveStart: December 07, 2023 Team Status: Inactive Member Role Status Dates Amanda Ford APRN TILE DITCHER-C Primary Care Provider Active Start: December 192023 End: December 20, 2023Romeo Santana DOAttending ProviderActiveStart: December 20, 2023 End: December 20, 2023 Team Status: Active Member Role Status Dates Amanda Ford APRN TILE DITCHER-C Primary Care Provider Active Start: December 182023 Romeo Santana , DOOther ProviderActiveStart: January 10, 2024 Daniel Hampton MDAttending ProviderActiveStart: January 10, 2024 Team Status: Inactive Member Role Status Dates Amanda Ford APRN TILE DITCHER-C Primary Care Provider Active Start: January 17, 2024 End: January 17, 2024Romeo Santana DOAttending ProviderActiveStart: January 17, 2024 End: January 17, 2024Team MemberRelationshipSpecialtyStart DateEnd Date Amanda Ford NP [address] [place] [address] [facility]01/17/23Team MemberRelationshipSpecialtyStart DateEnd Date Amanda Ford NP [address] [place] [address] [facility]01/17/23 Team Status: Inactive Member Role Status Dates Amanda Ford APRN TILE DITCHER-C Primary Care Provider Active Start: February 262023 End: February 27, 2024Romeo Santana DOAttending ProviderActiveStart: February 27, 2024 End: February 27, 2024Team MemberRelationshipSpecialtyStart DateEnd Date Amanda Ford NP PCP - [facility]01/17/23 Team Status: Active Member Role Status Dates Amanda Ford APRN TILE DITCHER-C Primary Care Provider Active Start: February Kenny Gallegos ProviderActiveStart: February 20, 2024 Team Status: Inactive Member Role Status Dates Amanda Ford APRN TILE DITCHER-C Primary Care Provider Active Start: April 23, 2024 End: April 23, 2024Kenny Gary ProviderActiveStart: April 23, 2024 End: April 23, 2024 Team Status: Inactive Member Role Status Dates Amanda Ford APRN TILE DITCHER-C Primary Care Provider, Attending Provider Active Start: April 26, 2024 End: April 26, 2024Team MemberRelationshipSpecialtyStart DateEnd Date Amanda Ford NP [address] [place] [address] [facility] Fmxjmqgu03/2/23Team MemberRelationshipSpecialtyStart DateEnd Date Amanda Ford NP [address] [place] [address] [facility] - [facility] Lsxvfqvr19/2/23Team MemberRelationshipSpecialtyStart DateEnd Date Amanda Ford NP [address] [place] [address] [facility] - [facility] Yetxrbko38/2/23Team MemberRelationshipSpecialtyStart DateEnd Date Amanda Ford NP [address] [place] [address] [facility] - [facility] Auhgcbgg03/2/23 Team Status: Inactive Member Role Status Dates Amanda Ford APRN TILE DITCHER-C Primary Care Provider Active Start: October 18, 2024 End: October 18lexjerri Arriaza , DOEmergency ProviderActiveStart: October 18, 2024 End: October 18, 2024Team MemberRelationshipSpecialtyStart DateEnd Date Amanda Ford NP [address] [place] [address] PCP - GeneralFamily Vbqegqye46/2/23Team MemberRelationshipSpecialtyStart DateEnd Date No Pcp, [place] [address] PCP - GeneralFamily Medicine05/20/20Team MemberRelationshipSpecialtyStart DateEnd Date No Pcp, [place] [address] PCP - GeneralFamily Medicine05/20/20Team MemberRelationshipSpecialtyStart DateEnd Date Amanda Ford NP [address] [place] [address] PCP - GeneralFamily Nrlihswa02/2/23Team MemberRelationshipSpecialtyStart DateEnd Date Amanda Ford NP [address] [place] [address] PCP - GeneralFamily Wmqtrtrr53/2/23Team MemberRelationshipSpecialtyStart DateEnd Date Amanda Ford NP [address] [place] [address] PCP - GeneralFamily Sgnxfdns11/2/23 Team Status: Active Member Role Status Dates Amanda Ford APRN TILE DITCHER-C Primary Care Provider Active Start: November 17, 2024 Chris Dickerson , DOAttending ProviderActiveStart: November 17, 2024 Team Status: Active Member Role Status Dates Amanda Ford APRN TILE DITCHER-C Primary Care Provider Active Start: November 20, 2024 Les Juan , DOAttending ProviderActiveStart: November 20, 2024 Team Status: Active Member Role Status Dates Amanda Ford APRN TILE DITCHER-C Primary Care Provider Active Start: November 30, [...] Member Role Status Dates Amanda Ford APRN TILE DITCHER-C Primary Care Provider Active Start: December 02, 2024 End: December 03, 2024Eduardo rCuz , DOAttending ProviderActiveStart: December 02, 2024 End: December 03, 2024Team MemberRelationshipSpecialtyStart DateEnd Date No Pcp, [place] [address] PCP - GeneralFamily Medicine05/20/20Team MemberRelationshipSpecialtyStart DateEnd Date No Pcp, [place] [address] PCP - GeneralFamily Medicine05/20/20Team MemberRelationshipSpecialtyStart DateEnd Date Amanda Ford NP [address] [place] [address] PCP - GeneralFamily Ctgjebzt81/2/23Team MemberRelationshipSpecialtyStart DateEnd Date No Pcp, [place] [address] PCP - GeneralFamily Medicine05/20/20Team MemberRelationshipSpecialtyStart DateEnd Date No Pcp, [place] [address] PCP - GeneralFamily Medicine05/20/20Team MemberRelationshipSpecialtyStart DateEnd Date Amanda Ford NP [address] [place] [address] PCP - GeneralFamily Mrzyxjgx03/2/23Team MemberRelationshipSpecialtyStart DateEnd Date Amanda Ford NP [address] [place] [address] PCP - GeneralFamily Mqxpgqwv49/2/23Team MemberRelationshipSpecialtyStart DateEnd Date Amanda Ford NP [address] [place] [address] PCP - Generalmily Qbfscomh39/2/23Team MemberRelationshipSpecialtyStart DateEnd Date MerylsarahAmanda de la fuente NP [address] [place] [address] PCP - GeneralFamily Hxmztwcc81/2/23 Goals (unrecognized section and content) Type Treatment [...] or prosecute any alcohol or drug abuse patient.[facility] HospitalIn the event this information is protected by the Federal Confidentiality of Alcohol and Drug Abuse Patient Records regulations: The Federal rules restrict any use of the information to criminally investigate or prosecute any alcohol or drug abuse patient.[facility] [place] [facility] HospitalIn the event this information is protected by the Federal Confidentiality of Alcohol and Drug Abuse Patient Records regulations: The Federal rules restrict any use of the information to criminally investigate or prosecute any alcohol or drug abuse patient.[facility] [place] [facility] HospitalIn the event this information is protected by the Federal Confidentiality of Alcohol and Drug Abuse Patient Records regulations: The Federal rules restrict any use of the information to criminally investigate or prosecute any alcohol or drug abuse patient.[facility] [place] [facility] HospitalIn the event this information is protected by the Federal Confidentiality of Alcohol and Drug Abuse Patient Records regulations: The Federal rules restrict any use of the information to criminally investigate or prosecute any alcohol or drug abuse patient.[facility] [place] [facility] HospitalIn the event this information is protected by the Federal Confidentiality of Alcohol and Drug Abuse Patient Records regulations: The Federal rules restrict any use of the information to criminally investigate or prosecute any alcohol or drug abuse patient.[facility] [place] [facility] HospitalIn the event this information is protected by the Federal Confidentiality of Alcohol and Drug Abuse Patient Records regulations: The Federal rules restrict any use of the information to criminally investigate or prosecute any alcohol or drug abuse patient.[facility] [place] [facility] HospitalIn the event this information is protected by the Federal Confidentiality of Alcohol and Drug Abuse Patient Records regulations: The Federal rules restrict any use of the information to criminally investigate or prosecute any alcohol or drug abuse patient.[facility] [place] [facility] HospitalIn the event this information is protected by the Federal Confidentiality of Alcohol and Drug Abuse Patient Records regulations: The Federal rules restrict any use of the information to criminally investigate or prosecute any alcohol or drug abuse patient.[facility] HospitalIn the event this information is protected by the Federal Confidentiality of Alcohol and Drug Abuse Patient Records regulations: The Federal rules restrict any use of the information to criminally investigate or prosecute any alcohol or drug abuse patient.[facility] [place] [facility] HospitalIn the event this information is protected by the Federal Confidentiality of Alcohol and Drug Abuse Patient Records regulations: The Federal rules restrict any use of the information to criminally investigate or prosecute any alcohol or drug abuse patient.[facility] [place] [facility] HospitalIn the event this information is protected by the Federal Confidentiality of Alcohol and Drug Abuse Patient Records regulations: The Federal rules restrict any use of the information to criminally investigate or prosecute any alcohol or drug abuse patient.[facility] [place] [facility] HospitalIn the event this information is protected by the Federal Confidentiality of Alcohol and Drug Abuse Patient Records regulations: The Federal rules restrict any use of the information to criminally investigate or prosecute any alcohol or drug abuse patient.[facility] [place] [facility] HospitalIn the event this information is protected by the Federal Confidentiality of Alcohol and Drug Abuse Patient Records regulations: The Federal rules restrict any use of the information to criminally investigate or prosecute any alcohol or drug abuse patient.[facility] [place] [facility] HospitalIn the event this information is protected by the Federal Confidentiality of Alcohol and Drug Abuse Patient Records regulations: The Federal rules restrict any use of the information to criminally investigate or prosecute any alcohol or drug abuse patient.[facility] [place] [facility] HospitalIn the event this information is protected by the Federal Confidentiality of Alcohol and Drug Abuse Patient Records regulations: The Federal rules restrict any use of the information to criminally investigate or prosecute any alcohol or drug abuse patient.[facility] [place] [facility] HospitalIn the event this information is protected by the Federal Confidentiality of Alcohol and Drug Abuse Patient Records regulations: The Federal rules restrict any use of the information to criminally investigate or prosecute any alcohol or drug abuse patient.[facility] [place] [facility] HospitalIn the event this information is protected by the Federal Confidentiality of Alcohol and Drug Abuse Patient Records regulations: The Federal rules restrict any use of the information to criminally investigate or prosecute any alcohol or drug abuse patient.[facility] [place] [facility] HospitalIn the event this information is protected by the Federal Confidentiality of Alcohol and Drug Abuse Patient Records regulations: The Federal rules restrict any use of the information to criminally investigate or prosecute any alcohol or drug abuse patient.[facility] [place] [facility] HospitalIn the event this information is protected by the Federal Confidentiality of Alcohol and Drug Abuse Patient Records regulations: The Federal rules restrict any use of the information to criminally investigate or prosecute any alcohol or drug abuse patient.[facility] [place] [facility] HospitalIn the event this information is protected by the Federal Confidentiality of Alcohol and Drug Abuse Patient Records regulations: The Federal rules restrict any use of the information to criminally investigate or prosecute any alcohol or drug abuse patient.[facility] [place] [facility] HospitalIn the event this information is protected by the Federal Confidentiality of Alcohol and Drug Abuse Patient Records regulations: The Federal rules restrict any use of the information to criminally investigate or prosecute any alcohol or drug abuse patient.[facility] [place] [facility] HospitalIn the event this information is protected by the Federal Confidentiality of Alcohol and Drug Abuse Patient Records regulations: The Federal rules restrict any use of the information to criminally investigate or prosecute any alcohol or drug abuse patient.[facility] [place] [facility] HospitalIn the event this information is protected by the Federal Confidentiality of Alcohol and Drug Abuse Patient Records regulations: The Federal rules restrict any use of the information to criminally investigate or prosecute any alcohol or drug abuse patient.[facility] [place] [facility] HospitalIn the event this information is protected by the Federal Confidentiality of Alcohol and Drug Abuse Patient Records regulations: The Federal rules restrict any use of the information to criminally investigate or prosecute any alcohol or drug abuse patient.[facility] [place] [facility] HospitalIn the event this information is protected by the Federal Confidentiality of Alcohol and Drug Abuse Patient Records regulations: The Federal rules restrict any use of the information to criminally investigate or prosecute any alcohol or drug abuse patient.[facility] [place] [facility] HospitalIn the event this information is protected by the Federal Confidentiality of Alcohol and Drug Abuse Patient Records regulations: The Federal rules restrict any use of the information to criminally investigate or prosecute any alcohol or drug abuse patient.[facility] FOR RECORDS PERTAINING TO PATIENTS WHO [...] BE BASED ON THE PRIMARY CLINICAL RECORDS. [facility] [employer] [facility] provides no warranty or guarantee of the accuracy or completeness of information in this document.
--- NOTE | 2025-03-04 14:00 | US_ITS ---
[address] [address] Patient Name: GUZMAN DEL CID MRN: [id number] date: 1995 Sex: F Assigned Patient Location: [facility] Current Patient Location: Accession/Order Number: [id number] Exam Date: 03/04/2025 14:03 Report Date: 03/04/2025 21:40 At the request of: BASIM BIRMINGHAM DO Procedure: US OB BPP w non-stress US OB BPP w non-stress 03/04/2025 2:21 PM SIGNS AND SYMPTOMS: ^04/23/2025 ^TSH DEFICIENCY E03.8 PROTOCOL: Transabdominal sonographic imaging of the gravid uterus COMPARISON: None FINDINGS: Estimated age: 32 weeks 6 days heart rate: 1 31 bpm Amniotic fluid index: 16.91 cm with the deepest vertical pocket measuring 7.86 cm Biophysical profile: movements: 2/2 tone: 2/2 breathing movements: 2/2 Amniotic fluid volume: 2/2 US/US OB BPP w non-stress IMPRESSION: Biophysical profile: 11/23 Impression dictated by: Zachary Simon M.D. 03/04/2025 9:40 PM Dictation Location: [employer] Electronically authenticated by: [id number] Y Date: 03/04/2025 21:40
[2025-03-04 14:24] VITALS: BP 119/67; PULSE 70
== END 2025-03-04 14:45 | disposition home or self-care (01) ==
LOC: US 12:00 → FBC 13:58
PROVIDERS: PCP Nurse Practitioner Family; Visit Provider Obstetrics & Gynecology
DX: O99.283 Endocrine, nutritional and metabolic diseases complicating pregnancy, third trimester (principal); Z3A.32 32 weeks gestation of pregnancy; E03.8 Other specified hypothyroidism
CPT/HCPCS: 76818

== ENCOUNTER 2025-03-07 14:05 | Outpatient (OUT) | payer MEDICAID, SELFPAY ==
--- OUTSIDE RECORDS SUMMARY | 2025-03-07 14:13 | XMS_ITS | CCD ---
Author Organization [facility] Care Team Providers Care Corporate Secretary Name Role Phone Mariam Appiah Primary Care Provider [phone] MACKENZIE BRITO Referring Unavailable MARIAM APPIAH Primary Care Unavailable RASHARD OLIVERA Referring Unavailable MARIAM APPIAH Primary Care Unavailable RASHARD OLIVERA Referring Unavailable MARIAM APPIAH Primary Care Unavailable RASHARD OLIVERA Admitting Unavailable RASHARD OLIVERA Attending Unavailable MARIAM APPIAH Primary Care Unavailable MARIAM APPIAH Primary Care Unavailable MARIAM APPIAH Primary Care Physician Amanda Ford Unavailable MD Mariam Appiah Primary Care Provider [phone] MELY Ford Attending Provider MELY Ford Primary Care Provider DO Jack Easton Emergency Provider MARYSOL Jett Emergency Provider [phone] MD Lashonda Farhad Admit Provider MD Farhad Gallego Attending Provider [phone] MELY Ford Attending Provider SHARRON Jefferson Attending Provider Petr Lay Unavailable Romeo Santana Unavailable MELY Ford Primary Care Provider DO Romeo Santana Attending Provider Daxa Ford NPnifer Primary Care Provider Unavailable Rohrbacher ORACLE OBIEE DEVELOPER, Amanda Primary Care Provider Romeo Santana DO Attending Provider Rohrbacher PLUMBING MECHANIC, Amanda A Primary Care Provider Unavailable Primary Care Provider Unavailabl e DAVID, MELODIE G Referring Unavailable Unavailable Primary Care Provider Unavailabl e NOLA ENRIQUEZ Attending Unavailable Rohrbacher PLUMBING MECHANIC, Amanda A Primary Care Provider DAVID, MELODIE [...] Unavailable JUAN, LES R Attending Unavailable Rohrbacher ORACLE OBIEE DEVELOPER, Amanda Primary Care Provider Kassidy Arriaza DO Emergency Provider [phone] No Pcp, No Pcp Primary Care Provider Unavailabl e Chris Dickerson DO Attending Provider Les Martinez DO Attending Provider Elizabeth Tom Attending Provider [phone] Eduardo Cruz DO Attending Provider JUAN, LES [...] of OnsetReaction(s) Facility (20 sources)Non-steroidal anti-inflammatory agentDrug allergyUnkWomen & [facility]ants [facility] of [facility] vSocial Other (20 sources)Non-steroidal anti-inflammatory agent; Translations: [NSAIDs]Drug [id number] [facility] (1 source)ALLERGIES NOT ON FILE; Translations: [ALLERGIES NOT ON FILE]Propensity to adverse reactions (disorder)[facility] Repository (6 sources)NSAIDs; Translations: [NSAIDS (NON-STEROIDAL ANTI-INFLAMMATORY DRUG)] Propensity to adverse reactions to dbue04-12-0584[facility] (1 source)NSAIDsDrug allergy (disorder)13-62-9005[facility] Medications Current Medications MedicationDrug Class(es)DatesSig (Normalized)Sig (Original)acetaminophen 500 mg oral tablet (20 sources)Start: 32-99-8477zgju 1 tablet by mouth every eight hours as needed acetaminophen (TYLENOL) 500 mg tablet Take 500 mg by mouth every 8 hours as needed for pain. 12/06/2023 ActiveStart: 40-29-3939hzry 1 tablet by mouth every six hours as needed for painStart: 11-28-2023 End: 63-93-4924jqghbowvozgqg (Tylenol Extra Strength) Discontinued 1000 MG PO EVERY 8-10 HOURS as needed for pain November 28, 2023 12:00am January 17, 2024 12:03pmacetaminophen 500 mg / diphenhydrAMINE hydrochloride 25 mg oral tablet (4 sources)Histamine-1 Receptor AntagonistStart: 29-17-8106gpbz 2 tablets by mouth once daily at bedtime for sleepTylenol Extra Strength PM oral tablet 2 tab(s), Oral, Once a day (at bedtime) for sleep, 60 tab(s),Refill(s) 2, [facility], 182, cm, 07/09/19 13:03:00 EDT, Height/Length Measured, 200.7, k g, 07/09/19 13:03:00 EDT, Weight Measured Start Date: 10/04/19 Status: Ordered acetaminophen 325 mg / oxyCODONE hydrochloride 5 mg oral tablet (2 sources)Opioid AgonistStart: 05-07-2020 End: 58-63-9963swis 1 tablet by mouth every six hours [...] pain 28 tablet 0 05/07/2020 05/14/2020 ActiveStart: 20-83-1970adzVMRFZX-acetaminophen (PERCOCET) 5-325 MG per tablet 1 tablet albuterol 0.833 mg/ml / ipratropium bromide 0.167 mg/ml inhalant solution (1 source)Anticholinergic, beta2-Adrenergic AgonistStart: 60-64-6853uuyisookxcg- albuterol (DUONEB) nebulizer solution 1 ampulebenztropine mesylate 1 mg oral tablet (4 sources)Anticholinergic, AntihistamineStart: 15-67-1346lvkavkallnz 1 mg Tab Refills(s) 0 Start Date: 01/30/20 Status: Orderedcalcium chloride 0.0014 meq/ml / potassium chloride 0.004 meq/ml / sodium chloride 0.103 meq/ml / sodium lactate 0.028 meq/ml injectable solution (2 sources)Start: 05-06-2020 End: 64-36-5834semssvaz ringers infusiondocusate sodium 100 mg oral capsule (20 sources)Start: 04-16-2024 End: 15-21-8120jwra 1 capsule by mouth twice daily as needed for constipation Docusate Sodium (Stool Softener) 100 mg capsule Active 0 .ROUTE .COMPLEX April 26, 2024 9:52am TAKE 1 CAPSULE BY MOUTH TWICE DAILY NEEDED FOR CONSTIPATION Complies with drug therapyStart: 04-16-2024 End: 54-64-0095gdah 1 capsule by mouth twice daily as needed for constipation Docusate Sodium (Stool Softener) 100 mg capsule Discontinued 0 .ROUTE .COMPLEX April 16, 2024 8:58am April 26, 2024 8:57am TAKE 1 CAPSULE BY MOUTH TWICE DAILY NEEDED FOR CONSTIPATIONStart: 06-17-2022 End: 44-56-3448wjzuttaa sodium (Colace) 100 MG capsule 1 (one) time each day at the same time 06/17/2022 ActiveStart: 06-11-2022 End: 35-36-7231mpmu 1 capsule by mouth twice daily as [...] prefilled syringe (1 source)Low Molecular Weight HeparinStart: 01-54-3486mvwikdzqwg (LOVENOX) 60 MG/0.6ML injection Inject 0.6 mLs into the skin 2 times daily 28 Syringe 0 0 05/07/2020 Active2 ml famotidine 10 mg/ml injection (1 source)Histamine-2 Receptor AntagonistStart: 41-92-1469pkoidcbrev (PEPCID) injection 20 mg1 ml heparin sodium, porcine 5000 unt/ml prefilled syringe (2 sources)Unfractionated Heparin, Anti-coagulantStart: 05-06-2020 End: 53-69-4938mwbqpwr (porcine) injection 5,000 Units1 ml HYDROmorphone hydrochloride 1 mg/ml cartridge (3 sources)Opioid AgonistStart: 70-63-9292YGQFRqbdnlrjp (DILAUDID) injection 1 mgStart: 05-06-2020 End: 09-48-0467DQLOHhatyxgxj (DILAUDID) 1 MG/ML injectionStart: 05-06-2020 End: 83-12-9038DTDZVnmspmfjb (DILAUDID) injection 0.5 mghydrOXYzine hydrochloride 50 mg oral tablet (4 sources)AntihistamineStart: 26-45-5106gste 1-2 tablets by mouth four times dailyhydrOXYzine hydrochloride 50 mg oral tablet See Instructions, 1-2 tab(s) Oral QID, # 60 tab(s), Refills(s) 2, Pharmacy: [facility] Start Date: 10/09/18 Status: OrderedlamoTRIgine 200 mg oral tablet (20 sources)Mood Stabilizer, Anti-epileptic AgentStart: 57-18-9241Cwfvtjfxxpm Active MG TABLET April 10, 2022 12:00amStart: 78-80-8049zgzxssqfaqp 200 mg Tab 300 mg = 1.5 tab(s), Oral, Daily, # 45 tab(s), Refills(s) 5, Pharmacy: [facility], 182, cm, 12/06/19 12:03:00 EDT, Height/Length Dosing, 200.7, kg, 11/28/19 9:08:00 EDT, Weight Dosing Start Date: 01/30/20 Status: OrderedStart: 10-04-2018 End: 69-45-6064wcnz 1 tablet by mouth once daily at bedtimeLamotrigine 200 mg tablet Discontinued 200 MG PO Daily at bedtime October 08, 2019 12:00am August 01, 2021 2:19pmLaMICtal 200 MG tablet 1.5 tabs Activelevothyroxine sodium 0.05 mg oral tablet (20 sources)l-ThyroxineStart: 02-24-2024 End: 94-54-8622xiey 1 tablet by mouth before mealtimelevothyroxine (Synthroid, Levoxyl) 50 MCG tablet Indications: Nontoxic goiter Take 1 tablet (50 mcg) by mouth in the morning. Take before meals. 90 tablet 3 08/22/2024 08/17/2025 ActiveStart: 10-13-2023 End: 20-37-0740synd 1 capsule by mouth once daily in the morningLevothyroxine 50 mcg capsule Discontinued 50 MCG PO Every morning October 13, 2023 12:00am April 26, 2024 9:56amStart: 10-08-2019 End: 77-09-7954duwg 1 tablet by mouth every other dayLevothyroxine 175 mcg Tablet Discontinued 175 MCG PO every other day October 08, 2019 12:00am July 172021 2:19pm 1 tablet on odd daysStart: 10-08-2019 End: 64-03-0153ojbx 1.5 tablets by mouth every other dayLevothyroxine 175 mcg Tablet Discontinued 262 MCG PO every other day October 08, 2019 12:00am July 172021 2:19pm 1.5 tabs every other day on even daysStart: 10-08-2019 End: 00-13-9576xxnr 1.5 tablets by mouth every other dayLevothyroxine Discontinued 262 MCG PO every other day October 08, 2019 12:00am August 01, 2021 2:19pm 1.5 tabs every other day on even daysStart: 12-03-8380trsn 1 tablet by mouth once dailylevothyroxine 175 mcg (0.175 mg) Tab 175 microgram = 1 tab(s), Oral, Daily, # 30 tab(s), Refills(s)0 Start Date: 09/03/18 Status: Ordered lidocaine 0.05 mg/mg medicated patch (20 sources)Antiarrhythmic, Amide Local AnestheticStart: 02-24-2024 End: 34-15-1875zvpvq 1 dose transdermal route once dailyLidocaine 5 % adhesive patch,medicated Active 0 .ROUTE .COMPLEX April 26, 2024 9:53am APPLY 1 PATCH TOPICALLY ONCE DAILY. REMOVE AFTER 12 HOURS Complies with drug therapy Start: 02-24-2024 End: 70-93-9549cfubk 1 dose topically once dailyLidocaine 5 % adhesive patch,medicated Discontinued 1 PATCH TOPICAL Daily February 24, 2024 1:00am February 24, 2024 9:54am leave on most painful area for up to 12 hrsStart: 10-24-2023 End: 37-89-1288wmjrv 1 dose transdermal route once dailyLidocaine 5 % adhesive patch,medicated Discontinued 0 .ROUTE .COMPLEX October 24, 2023 8:47am January 17, 2024 12:04pm APPLY 1 PATCH TOPICALLY ONCE DAILY. REMOVE AFTER 12 HOURS Start: 06-03-2023 End: 47-02-2552pecvl 1 dose topically once daily as neededLidocaine 5 % adhesive patch,medicated Discontinued 1 PATCH TOPICAL Daily as needed June 03, 2023 1:00am October 24, 2023 8:48am REMOVE AFTER 12 HOURSStart: 46-82-6932Xalymmele 5 % 1 patch remove after 12 hours Externally Once a day for 30 day(s) PRN Jan, ActiveLidocaine 5 % APPLY 1 PATCH TOPICALLY ONCE DAILY. REMOVE AFTER 12 HOURS. for 30 Activelithium carbonate 450 mg extended release oral tablet (8 sources)Start: 00-79-2710mjjr 1 tablet by mouth once daily in the morning, then take 2 tablets by mouth once daily in the eveninglithium 450 mg oral tablet, extended release See Instructions, 1 tab po qAM and 2 tabs qPM, # 90 tab (s), Refills(s) 2, Pharmacy: [facility], 182, cm, 12/06/19 12:03:00 EDT, Height/Length Dosing, 200.7, kg, 11/28/19 9:08:00 EDT, Weight Dosing Start Date: 03/17/20 Status: Orderedmagnesium oxide 400 mg oral tablet (5 sources)Start: 24-38-9329utdw 1 tablet by mouth once in the morning, then take 1 tablet by mouth at bedtimemagnesium oxide (MAGOX) 400 mg tablet Indications: headache in second trimester Take 1 tablet (400 mg total) by mouth in the morning and 1 tablet (400 mg total) before bedtime. 120 tablet 1 12/05/2024 Active2 ml ondansetron 2 mg/ml injection (1 source)Serotonin-3 Receptor AntagonistStart: 50-09-2365akirtgygmrd (ZOFRAN) injection 4 mgpantoprazole 40 mg extended release oral tablet (4 sources)Proton Pump InhibitorStart: 13-24-6264xgle 1 tablet by mouth once dailypantoprazole 40 mg Oral EC Tab 40 mg = 1 tab(s), Oral, Daily, # 30 tab(s), Refills(s) 0 Start Date:09/03/18 Status: OrderedPNV Combo No.47-Iron-FA #1-DHA (PNV-DHA) 27 mg iron-1 mg -300 mg (5 sources)Start: 56-04-7464ssdt 1 capsule by mouth once dailyPNV Combo No.47-Iron-FA #1-DHA (PNV-DHA) 27 mg iron-1 mg -300 mg Take 1 capsule by mouth once daily. 08/20/2024 Activepolysaccharide iron complex 391 mg oral capsule (20 sources)Start: 68-90-5959rxzs 1 capsule by mouth twice daily at bedtimeProFe 391.3 (180 Fe) MG capsule Indications: Other iron deficiency anemia TAKE 1 CAPSULE BY MOUTH TWICE DAILY IN THE MORNING AND BEFORE BEDTIME 60 capsule 3 11/06/2024 ActiveStart: 12-07-2023 End: 67-35-4526huen 1 capsule by mouth once dailyPolysaccharide Iron Complex (Pro Fe) 180 mg iron capsule Discontinued 180 MG PO Daily December 07, 2023 12:00am April 23, 2024 3:52pmtake 2 capsules by mouth twice daily Polysaccharide Iron Complex (PRO FE) 180 mg iron cap Take 2 capsules by mouth two times a day. Activeprenatal vk285-wyga-ezolf acid ( 19) 29 mg iron- 1 mg tablet,chewable (7 sources) im978-wvtb-xysbg acid ( 19) 29 mg iron- 1 mg tablet,chewable Chew 1 tablet and swallow in the morning. Activepromethazine hydrochloride 25 mg oral tablet (8 sources)PhenothiazineStart: 56-18-8878mkdt 1 tablet by mouth every six hours as needed for nauseapromethazine (PHENERGAN) 25 MG tablet Take 1 tablet by mouth every 6 hours as needed for Nausea 30 tablet 0 05/07/2020 ActiveStart: 05-06-2020 End: 76-55-1888umrb 1 tablet by mouth four times daily as needed for nausea promethazine (PHENERGAN) 25 MG tablet Take 1 tablet by mouth 4 times daily as needed for Nausea 20 tablet 0 05/07/2020 05/14/2020 ActiveStart: 05-06-2020 promethazine (PHENERGAN) injection 12.5 mgStart: 03-28-2019 End: 31-21-5806qtro 1 tablet by mouth every four hours as needed for nausea and vomitingpromethazine (PHENERGAN) 25 MG tablet TAKE 1 TABLET BY MOUTH EVERY 4 HOURS NEEDED FOR NAUSEA ANDVOMITING 0 03/28/2019 05/07/2020 Discontinued (REORDER)QUEtiapine 25 mg oral tablet (20 sources)Atypical AntipsychoticStart: 54-85-3063wjbg 1 tablet by mouth at bedtimeQuetiapine 25 mg tablet Active 25 MG PO Bedtime April 10, 2022 1:00am Complies with drug therapyStart: 60-02-9395Fllkgymdsw Active MG TABLET April 10, 2022 12:00amStart: 05-03-2664ctjk 2 tablets by mouth at bedtime quetiapine 50 mg oral tablet 100 mg = 2 tab(s), Oral, Bedtime, # 60 tab(s), Refills(s) 5, Pharmacy:[facility], 182, cm, 12/06/19 12:03:00 EDT, Height/Length Dosing, 200.7, kg, 11/28/19 9:08:00 EDT, Weight Dosing Start Date: 03/12/20 Status: Orderedtake 1 tablet by mouth once dailyQUEtiapine (SEROQUEL XR) 50 MG extended release tablet Take 50 mg by mouth nightly 0 Vdpmba89 hr scopolamine 0.0139 mg/hr transdermal system (2 sources)AnticholinergicStart: 38-59-4830ffhbckfmikd (TRANSDERM-SCOP) transdermal patch 1 patchsertraline 25 mg oral tablet (20 sources)Serotonin Reuptake InhibitorStart: 20-23-4713pkda 1 tablet by mouth once dailysertraline (Zoloft) 25 MG tablet Take 25 mg by mouth 1 (one) time each day at the same time 09/25/2024 Active3 ml sodium chloride 9 mg/ml injection (2 sources)Start: 38-14-6856qxwwhp chloride flush 0.9 % injection 10 mLSprintec oral tablet (4 sources)Start: 84-49-6896Lkijawzr oral tablet 1 tab(s), Oral, Daily, 28 tab(s), Refill(s) 0 Start Date: 05/25/19 Status: Orderedsulfamethoxazole 400 mg / trimethoprim 80 mg oral tablet (7 sources)Dihydrofolate Reductase Inhibitor Antibacterial, Sulfonamide Antimicrobialtake 1 tablet by mouth every twenty-four hoursBactrim 400-80 MG 1 tablet Orally Once a day Activeziprasidone 80 mg oral capsule (20 sources)Atypical AntipsychoticStart: 50-02-4914guuk 1 capsule by mouth twice daily at mealtimeziprasidone 80 mg Cap 80 mg = 1 cap(s), Oral, BID, with food, # 60 cap(s), Refills(s) 2, Pharmacy: [facility], 182, cm, 12/06/19 12:03:00 EDT, Height/Length Dosing, 200.7, kg, 11/28/19 9:08:00 EDT, Weight Dosing Start Date: 03/12/20 Status: OrderedStart: 10-08-2019 End: 31-59-8464xfms 1 capsule by mouth twice dailyZiprasidone Hcl [...] oral tablet (20 sources)Opioid AgonistStart: 08-01-2021 End: 07-63-3513wvcu 1 tablet by mouth every eight hours as needed for pain Hydrocodone-Acetaminophen 5-325 mg tablet Discontinued 1 TAB PO Q8H as needed for pain 7 2 August 01, 2021 April 10, 2022 7:18pmALPRAZolam 0.5 mg oral tablet (20 sources)BenzodiazepineStart: 06-17-2022 End: 67-98-2165gevc 1 tablet by mouth twice daily as needed for anxiety Alprazolam (Xanax) 0.5 mg tablet Discontinued 0.5 MG PO Twice daily as needed for Anxiety June 03, 2023 9:03am December 02, 2024 11:33pmStart: 06-10-2022 End: 08-03-9456wdbg 1 tablet by mouth once daily as needed for anxietyAlprazolam (Xanax) 0.5 mg Tablet Discontinued 0.5 MG PO Daily as needed for Anxiety June 10, 2022 1:00am June 03, 2023 9:04amStart: 01-20-9158gdkt 1-2 tablets by mouth every 30 days at bedtime as needed for anxietyalprazolam 0.5 mg Tab 1-2 tabs, Oral, Bedtime, PRN for anxiety, 30 day supply; DX: F41, anxiety, # 60 tab(s), Refills(s) 1, Pharmacy: [facility], 182, cm, 12/06/19 12:03:00 EDT, Height/Length Dosing, 200.7, kg, 11/28/19 9:08:00 EDT, Weight Dosing Start Date: 01/30/20 Status: OrderedStart: 10-08-2019 End: 44-14-3088nypg 1 tablet by mouth three times daily as needed for anxiety Alprazolam (Xanax) 0.5 mg Tablet Discontinued 0.5 MG PO Three times daily as needed for Anxiety October 08, 2019 12:00am April 10, 2022 7:18pmatomoxetine 40 mg oral capsule (11 sources)Norepinephrine Reuptake InhibitorStart: 01-25-2022 End: 68-64-3918Kxutmlvdu 40 MG capsule 1 (one) time each day at the same time. 01/25/2022 10/22/2024 Wequvekuzasv86 ml bupivacaine hydrochloride 5 mg/ml injection (1 source)Amide Local AnestheticStart: 05-06-2020 End: 82-83-5592lgnbapdsafs (PF) (MARCAINE) 0.5 % injection 200 mgStart: 05-06-2020 End: 26-57-7073igzpwvfmqfw (PF) (MARCAINE) 0.5 % injection 200 mg12 hr buPROPion hydrochloride 150 mg extended release oral tablet (15 sources)AminoketoneStart: 04-26-2024 End: 79-83-3919mwjn 1 tablet by mouth once dailyBupropion Hcl (Wellbutrin Sr) 150 mg tablet sustained-release 12 hr Discontinued 150 MG PO Daily April 26, 2024 1:00am December 02, 2024 11:34pm End: 18-06-6296xowg 1 tablet by mouth once dailybuPROPion XL (Wellbutrin XL) 150 MG 24 hr tablet Take 150 mg by mouth Daily Do not crush, chew, or split. 10/22/2024 DiscontinuedbusPIRone hydrochloride 15 mg oral tablet (20 sources)Start: 04-10-2022 End: 60-59-2936svxu 1 tablet by mouth three times daily as neededBuspirone 15 mg tablet Discontinued 15 MG PO Three times daily June 10, 2022 1:00am June 03, 2023 9:04am TAKE 1 TABLET BY MOUTH THREE TIMES DAILY NEEDED FOR 30 DAYSStart: 04-10-2022 End: 00-52-2626fsrp 1 tablet by mouth twice dailyBuspirone 15 mg tablet Discontinued 15 MG PO Twice daily June 03, 2023 9:01am December 02, 2024 11:34pmStart: 04-10-2022 End: 64-37-9316Wezfavlpf Discontinued MG TABLET April 10, 2022 1:00am June 10, 2022 6:28pmceFAZolin (ANCEF) 3 g in dextrose 5 % 100 mL IVPB (1 source)Start: 05-06-2020 End: 53-07-3373llYIMvpqf (ANCEF) 3 g in dextrose 5 % 100 mL IVPBcyclobenzaprine hydrochloride 10 mg oral tablet (20 sources)Muscle RelaxantStart: 06-10-2022 End: 70-80-1702qtkb 1 tablet by mouth at bedtimeCyclobenzaprine 10 mg tablet Discontinued 10 MG PO Bedtime June 10, 2022 1:00am November 28, 2023 3:55pmStart: 05-07-2020 End: 50-76-6665fbwo 1 tablet by mouth once daily as needed for muscle spasms cyclobenzaprine (FLEXERIL) 10 MG tablet Take 1 tablet by mouth nightly as needed for Muscle spasms 10 tablet 0 05/07/2020 05/17/2020 ActiveStart: 06-98-3270xmnd 1 tablet by mouth twice daily as needed for muscle spasmscyclobenzaprine (FLEXERIL) 10 MG tablet Take 1 tablet by mouth 2 times daily as needed for Muscle spasms 20 tablet 0 05/07/2020 ActiveStart: 10-08-2019 End: 31-77-1092wihu 1 tablet by mouth three times daily as needed for muscle spasmsCyclobenzaprine 10 mg tablet Discontinued 10 MG PO Three times daily as needed for Muscle Spasm October 08, 2019 12:00am August 01, 2021 2:19pm End: 12-35-5491dhes 5 mg by mouth three times daily as needed for muscle spasms cyclobenzaprine (Flexeril) 10 MG tablet Take 5 mg by mouth 3 (three) times a day as needed for muscle spasms 10/22/2024 Discontinueddiclofenac sodium 0.01 mg/mg topical gel (17 sources)Nonsteroidal Anti-inflammatory DrugStart: 11-28-2023 End: 65-63-0743igqko 1 g topically four times daily as needed for painDiclofenac Sodium (Aleve (Diclofenac)) 1 % gel Discontinued 1 GM TOPICAL Four times daily as neededfor pain November 28, 2023 12:00am January 17, 2024 12:03pm apply to single elbow, wrist or hand; for hand includes palm/fingers/back of handStart: 15-99-6583Hztbgdrpbp Sodium 1 % 2 grams Externally Four times a day as needed for 30 day(s) Mar, Activedoxycycline hyclate 100 mg oral tablet (20 sources)Tetracycline-class DrugStart: 08-01-2021 End: 37-37-6809jkqx 1 tablet by mouth twice dailyDoxycycline Hyclate 100 mg tablet Discontinued 100 MG PO Twice daily August 01, 2021 12:00am April 10, 2022 7:18pmergocalciferol 1.25 mg oral capsule (20 sources)Provitamin D2 CompoundStart: 10-08-2019 End: 24-97-1227Ndwuadwzcqqcvk (Vitamin D2) (Vitamin D2) 1,250 mcg (50,000 unit) capsule Discontinued 76785 UNIT POevery week October 08, 2019 12:00am August 01, 2021 2:19pm Takes on Sundaystart: 23-78-6733Rhtykjk D2 2000 intl units oral capsule Refills(s) 0 Start Date: 05/25/19 Status: OrderedStart: 01-12-2019 End: 51-80-7590evvs 1 capsule by mouth every weekvitamin D (ERGOCALCIFEROL) 61877 units CAPS capsule Indications: Vitamin D deficiency Take 1 capsule by mouth once a week for 8 doses 8 capsule 0 01/12/2019 05/08/2020 Discontinued (Stop Taking at Discharge) End: 78-40-0854Wxtfbzpnomthqg (VITAMIN D2 PO) Take 50,000 capsules by mouth once a week 0 05/08/2020 Discontinued (Stop Taking at Discharge)Ergocalciferol (VITAMIN D2 PO) Take 50,000 capsules by mouth once a week 0 ActiveNorgestimate- Ethinyl Estradiol (20 sources)Progestin, EstrogenStart: 10-08-2019 End: 33-72-6554wxtg 1 tablet by mouth once dailyNorgestimate-Ethinyl Estradiol (Sprintec (28)) 0.25-35 mg-mcg tablet Discontinued 1 TAB PO Daily October 08, 2019 12:00am August 01, 2021 2:19pmStart: 10-08-2019 End: 21-16-8285zizv 1 tablet by mouth once dailyNorgestimate-Ethinyl Estradiol (Sprintec (28)) 0.25-35 mg-mcg tablet Discontinued 1 TAB PO Daily October 07, 2019 11:00pm August 01, 2021 1:19pmStart: 00-48-8416grjj 1 tablet by mouth once dailySPRINTEC 28 0.25-35 MG-MCG per tablet TAKE 1 TABLET BY MOUTH ONCE DAILY 3 01/13/2019 Active2 ml fentaNYL 0.05 mg/ml injection (1 source)Opioid AgonistStart: 05-06-2020 End: 80-95-7369pvvqcXCI (SUBLIMAZE) injection 25 mcgferrous sulfate 325 mg oral tablet (20 sources)Start: 01-30-2020 End: 93-30-4417ulku 1 tablet by mouth once dailyFerrous Sulfate 325 mg (65 mg iron) tablet Discontinued 325 MG PO Daily June 11, 2022 1:00am August 29, 2023 11:07amgabapentin 300 mg oral capsule (1 source)Anti-epileptic AgentStart: 05-05-2020 End: 53-12-4492jysk 1 capsule by mouth once daily, then take 1 capsule by mouth, then take 1 capsule by mouthgabapentin (NEURONTIN) 300 MG capsule Take 1 capsule by mouth daily for 2 days. Take one pill the night before and one the morning of surgery 2 capsule 0 05/05/2020 05/08/2020 Discontinued (Stop Taking at Discharge)iohexol (OMNIPAQUE 240) injection 30 mL (1 source)Start: 05-07-2020 End: 02-58-9755xrzshwj (OMNIPAQUE 240) injection 30 mL1 ml ketorolac tromethamine 15 mg/ml cartridge (1 source)Nonsteroidal Anti-inflammatory Drug, Cyclooxygenase InhibitorStart: 05-07-2020 End: 30-83-0316qvbnxmkgl (TORADOL) injection 15 mgStart: 05-07-2020 End: 65-56-1843bxfdcndni (TORADOL) injection 15 mglansoprazole 30 mg delayed release oral capsule (20 sources)Proton Pump InhibitorStart: 10-08-2019 End: 87-26-3764izhm 1 capsule by mouth once daily in the morningLansoprazole 30 mg capsule,delayed release(DR/EC) Discontinued 30 MG PO Every morning November 28, 2023 12:00am February 10, 2024 11:58amletrozole 2.5 mg oral tablet (4 sources)Aromatase Inhibitor End: 81-51-9460waag 1 tablet by mouth once dailyletrozole (Femara) 2.5 MG chemo tablet Take by mouth Daily. Take with or without food. 09/20/2024 Discontinued (Therapy completed)Lidocaine 5 % adhesive patch,medicated (3 sources)Start: 02-24-2024 End: 66-61-7629oezls 1 dose transdermal route once dailyLidocaine 5 % adhesive patch,medicated Discontinued 0 .ROUTE .COMPLEX February 24, 2024 8:53am J anuary 2024 8:57am APPLY 1 PATCH TOPICALLY ONCE DAILY. REMOVE AFTER 12 HOURSStart: 78-93-5110ssoxh 1 dose transdermal route once dailyLidocaine 5 % adhesive patch,medicated Active 0 .ROUTE .COMPLEX February 24, 2024 8:53am APPLY 1 PATCH TOPICALLY ONCE DAILY. REMOVE AFTER 12 HOURSlurasidone hydrochloride 40 mg oral tablet (1 source)Atypical Antipsychotic End: 96-60-5580ouna 1 tablet by mouth once dailylurasidone (LATUDA) 40 MG TABS tablet Take by mouth daily 0 04/22/2020 Discontinued (LIST CLEANUP) medroxyPROGESTERone acetate 10 mg oral tablet (20 sources)ProgestinStart: 04-10-2022 End: 05-93-3115Nslzpfuvygshfiocyyq (Provera) 10 mg tablet Discontinued 10 MG PO Daily 01 25April 10, 2022 1:00am June 10, 2022 6:28pm begin day 16 of cyclemethylPREDNISolone acetate 80 mg/ml injectable suspension (20 sources)CorticosteroidStart: 77-29-4615JPKC-Medrol Sep, 80 mgStart: 20-62-7471hhtsdvNNTQARGqnwog 4 MG as directed Orally daily for 6 days August, ActiveStart: 93-51-3071csjyugZGBNORMfvzli 4 MG as directed Orally daily for 6 days Jan, Not-Taking2 ml midazolam 1 mg/ml injection (1 source)BenzodiazepineStart: 05-06-2020 End: 98-22-2668uxseqsmeu PF (VERSED) injection 1 mgmupirocin 20 mg/ml topical cream (20 sources)RNA Synthetase Inhibitor AntibacterialStart: 06-10-2022 End: 53-44-9145Nnsffcakj Calcium 2 % cream Discontinued 1 APPLIC TOPICAL Twice daily as needed for GENITAL BOILS June 10, 2022 1:00am December 02, 2024 11:34pmStart: 43-52-3430Tuulrelxa Calcium 2 % 1 application Externally Twice a day for 5 day(s) Jan, ActiveStart: 60-57-6465Qrrigmozz Calcium 2 % 1 application Externally Twice a day for 5 day(s) Jan, Activenaltrexone hydrochloride 50 mg oral tablet (20 sources)Opioid AntagonistStart: 10-25-2023 End: 12-13-2076odgxsrpnvu (Depade) 50 MG tablet every 12 (twelve) hours 10/25/2023 04/21/2024 ActiveStart: 06-03-2023 End: 38-33-4811cxxu 2 tablets by mouth twice dailynaltrexone 50 mg tablet Take 2 tablets by mouth two times a day. 06/03/2023 ActiveStart: 06-03-2023 End: 87-10-3469yqww 1 tablet by mouth twice dailyNaltrexone 50 mg tablet Discontinued 100 MG PO Twice daily April 23, 2024 3:51pm December 02, 2024 11:34pmStart: 26-96-2455ptjr 50 mg by mouth once dailyNaltrexone Active 50 MG PO Daily June 03, 2023 1:00amtake 1 tablet by mouth every twenty-four hours Naltrexone HCl 50 MG 1 tablet Orally Once a day ActiveoxyCODONE hydrochloride 5 mg oral tablet (17 sources)Opioid AgonistStart: 12-09-2023 End: 28-16-8039ayya 1 tablet by mouth at mealtime for painOxycodone 5 mg tablet Discontinued 5 MG PO .q6-8hrs as needed for severe pain 03 22December 09, 2023 December 20, 2023 10:47am Take with food. Do not fill until 12/10/23.Start: 12-06-2023 End: 75-76-4575scfr 1 tablet by mouth every six hours as needed for pain Oxycodone 5 mg tablet Discontinued 5 MG PO Q6H as needed for Pain 04 09December 06, 2023 December 07, 2023 7:13amrisperiDONE 4 mg oral tablet (1 source)Atypical AntipsychoticStart: 09-19-2018 End: 42-91-0285pxag 1 tablet by mouth in the morningrisperiDONE (RISPERDAL) 4 MG tablet TAKE 1 2 (ONE HALF) TABLET BY MOUTH IN THE MORNING AND 1 TAB INTHE EVENING 2 09/19/2018 04/22/2020 Discontinued (LIST CLEANUP)traMADol hydrochloride 50 mg oral tablet (17 sources)Opioid AgonistStart: 12-07-2023 End: 82-74-1285zykt 1 tablet by mouth every eight hours as needed for pain Tramadol 50 mg tablet Discontinued 50 MG PO Every 8 hours as needed for pain 15 7 December 1443:44pm January 17, 2024 12:04pmtrihexyphenidyl hydrochloride 2 mg oral tablet (1 source)Start: 03-28-2019 End: 04-04-0119umth 1 tablet by mouth twice dailytrihexyphenidyl (ARTANE) 2 MG tablet TAKE 1 TABLET BY MOUTH TWICE DAILY FOR 30 DAYS 0 03/28/2019 04/22/2020 Discontinued (LIST CLEANUP) Problems Active Problems Problem ClassificationProblemDateDocumented DateEpisodic/ChronicAbdominal pain (20 sources)Flank pain; Translations: [Unspecified abdominal pain]07-03-2021 EpisodicAdministrative/social admission (2 sources)Treatment plan given; Translations: [Counseling, unspecified] 42-90-7603HjqnxxegRzhyfaat reactions (5 sources)Acute urticaria; Translations: [Other urticaria]03-06-6009Qfkwqcce Anxiety disorders (20 sources)Mixed anxiety and depressive disorder; Translations: [Anxiety disorder, unspecified]14-03-7636JcyidkgGqjetgjjg-deficit, conduct, and disruptive behavior disorders (20 sources)Attention deficit hyperactivity disorder, predominantly inattentive type; Translations: [Attention-deficit hyperactivity disorder, predominantly inattentive type]73-85-2931VczeezbVqsgrpzdx-deficit, conduct, and disruptive behavior disorders (1 source)Attention-deficit hyperactivity disorder, predominantly inattentive typeChronicAttention-deficit, conduct, and disruptive behavior disorders (20 sources)Attention deficit hyperactivity disorder; Translations: [Attention- deficit hyperactivity disorder, predominantly inattentive type]ChronicBiliary tract disease (4 sources)Vbfaeorce34-11-9762ZwrnbiomFerpazdqnqmgo and procreative management (14 sources)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 partner; Translations: [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]Onset: 994929-45-4610EndbdeijSvjjqkscti and other anemia (19 sources)Anemia; Translations: [Anemia, unspecified]71-27-4785Anrlzubt Deficiency and other anemia (20 sources)Iron deficiency anemia; Translations: [Iron deficiency anemia, unspecified]65-79-2254LbfhubhgHifkqylqjt and other anemia (4 sources)Anemia, unspecified; Translations: [Anemia, unspecified]06-10-2022 EpisodicDeficiency and other anemia (4 sources)Iron deficiency anemia, unspecified; Translations: [Iron deficiency anemia, unspecified]06-68-3833GesumufgGjkioyohmv and other anemia (2 sources)Other iron deficiency anemiasEpisodicDisorders usually diagnosed in infancy, childhood, or adolescence (20 sources)Non-organic primary nocturnal enuresis; Translations: [Enuresis not due to a substance or known physiological condition]ChronicEsophageal disorders (20 sources)Gastroesophageal reflux disease without esophagitis; Translations: [Gastro-esophageal reflux disease without esophagitis]Onset: 07-16-2021 Resolved: 55-19-7316AwmlybaYnpxui infertility (20 sources)Anovulation; Translations: [Female infertility associated with anovulation]Onset: 159460-47-9013CifygwdRjvjk of unknown origin (16 sources)Fever; Translations: [Fever, unspecified]73-26-1351Pswfbbjj Genitourinary symptoms and ill-defined conditions (2 sources)Painful micturition, unspecified; Translations: [Other microscopic hematuria]EpisodicHeadache; including migraine (1 source)Headache; including migraine; Translations: [Headache, unspecified] Onset: 78-84-9204Auovprawol during ; abruptio placenta; placenta previa (4 sources)Bleeding from female genital tract during ; Translations: [Antepartum hemorrhage, unspecified, unspecified trimester]Onset: 10-18-2024 23-34-9260IfdyaxeuTyhowdnirtfkx and screening for infectious disease (8 sources)Patient encounter status; Translations: [Encounter for screening for infectious and parasitic diseases, unspecified]Onset: EpisodicMenstrual disorders (20 sources)Menorrhagia; Translations: [Excessive and frequent menstruation with regular cycle]ChronicMood disorders (20 sources)Bipolar disorder; Translations: [Bipolar affective disorder, currently depressed, mild]Onset: 641993-40-7336RlsxvcsZxahas and vomiting (16 sources)Vomiting; Translations: [Vomiting, unspecified]16-84-8216[place] Nutritional deficiencies (20 sources)Vitamin D deficiency; Translations: [Vitamin D deficiency, unspecified]Onset: 01-12-2019 Resolved: 818665-27-8894WjixtjeUzfkulkshin deficiencies (4 sources)Iron deficiency; Translations: [Vitamin A deficiency, unspecified] Onset: 07-16-2021 Resolved: 06-51-1191OymceehkQfqurdqagdgtwi (20 sources)Arthritis of shoulder region joint; Translations: [Primary osteoarthritis, unspecified shoulder]ChronicOther complications of (5 sources)Maternal obesity complicating , childbirth and the puerperium, antepartum; Translations: [Obesity complicating , second trimester]73-10-4921UvmmiocOdfli complications of (1 source)Obesity complicating , second trimester; Translations: [Obesity complicating , second trimester]Onset: 84-28-5204BwrycefWyaqk complications of (4 sources)Supervision of resulting from assisted reproductive technology, first trimester; Translations: [ resulting from assisted reproductive technology]Onset: 390907-31-0491AbbbplwkRvcoy complications of (2 sources)Conceived by in vitro fertilization; Translations: [Supervision of resulting from assisted reproductive technology, first trimester] 92-27-3231WszauugtFogrk complications of (12 sources)Hypothyroidism in ; Translations: [Endocrine, nutritional and metabolic diseases complicating , second trimester]Onset: 554683-97-3655TytfxeysYpcha complications of (9 sources)Bipolar disorder; Translations: [Other mental disorders complicating , second trimester]Onset: 520558-50-0190MwehtoovTcbsy complications of (2 sources)Supervision of resulting from assisted reproductive technology, unspecified trimester; Translations: [ resulting from assisted reproductive technology]Onset: 257777-38-0980EducvdjpSmaci complications of (8 sources)Headache; Translations: [Other specified related conditions, second trimester]Onset: 889770-38-7688EljbncloYtemr complications of (1 source)Other specified related conditions, second trimester; Translations: [Other specified related conditions, second trimester] Onset: 01-98-2392SukmmoebOrqyw complications of (1 source)Bariatric surgery status complicating , unspecified trimester; 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 complicating , unspecified trimester]Onset: 53-25-1095OnlkanbyQguha complications of (1 source)Endocrine, nutritional and metabolic diseases complicating , second trimester; Translations: [Endocrine, nutritional and metabolic diseases complicating , second trimester]Onset: 30-03-7793BnxygafsCmjsj complications of (1 source)Other mental disorders complicating , second trimester; Translations: [Other mental disorders complicating , second trimester] Onset: 59-88-2165SwtuyiolLjkbm connective tissue disease (4 sources)Plantar nzanrdfjf60-78-0211PkkxscgaFlybx connective tissue disease (1 source)Lateral epicondylitis, right elbowEpisodicOther connective tissue disease (2 sources)Bursitis of right shoulderEpisodicOther connective tissue disease (20 sources)Disorder of ligament, unspecified site; Translations: [Laxity of ligament]EpisodicOther connective tissue disease (14 sources)Laxity of ligament; Translations: [Disorder of ligament, unspecified site]31-15-3787NjkztjpyQndjhuw on above:right shoulderOther connective tissue disease (4 sources)Bilateral plantar fasciitis; Translations: [Plantar fasciitis, bilateral]Onset: Other female genital disorders (20 sources)Abnormal uterine bleeding; Translations: [Other specified abnormal uterine and vaginal bleeding]26-99-6589HemgetmZzvbi gastrointestinal disorders (15 sources)Constipation; Translations: [Constipation, unspecified]06-08-2023 EpisodicOther gastrointestinal disorders (1 source)Constipation, unspecified; Translations: [Constipation, unspecified] 51-85-1660TnahlxbbBoefn gastrointestinal disorders (11 sources)History of bypass of stomach; 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]Onset: 196121-36-9463IxxvbuztAgrwf hematologic conditions (4 sources)H/O: anemia - iron deficient; Translations: [Personal history of diseases of the blood and blood-forming organs and certain disorders involving the immune mechanism]23-72-9912UmeoijxpMqyyt inflammatory condition of skin (1 source)Erythema intertrigoEpisodicOther nervous system disorders (20 sources)Chronic pain; Translations: [Other chronic pain]04-01-4561Hmqoriw Other nervous system disorders (2 sources)Other chronic pain; Translations: [Other chronic pain]ChronicOther nervous system disorders (12 sources)Carpal tunnel syndrome of right wrist; Translations: [Carpal tunnel syndrome, right upper limb]06-32-3489PblbrabQymyc nervous system disorders (20 sources)Carpal tunnel syndrome, right upper limb; Translations: [Carpal tunnel syndrome]55-03-0627HnqbahjRlfqs nervous system disorders (1 source)Postoperative pain ; Translations: [Post-op pain]EpisodicOther nervous system disorders (14 sources)Numbness of hand; Translations: [Anesthesia of skin]10-13-2023 EpisodicOther nervous system disorders (13 sources)Anesthesia of skin; Translations: [Disturbance of skin sensation] 39-41-4545GzyjozowHmxrq non-traumatic joint disorders (16 sources)Derangement of right [...] right shoulder joint; Translations: [Other instability, right shoulder]52-19-9137QanuvymdIdtag nutritional; endocrine; and metabolic disorders (8 sources)Body mass index 40+ - severely obese; Translations: [Morbid obesity with BMI of 50.0-59.9, adult]Onset: 12-05-2018 Resolved: 957273-55-8918XbcyeqpXesoe nutritional; endocrine; and metabolic disorders (4 sources)Morbid shiihtz65-99-9917QsbxxomQyupg and delivery including normal (16 sources)Early stage of ; Translations: [Encounter for supervision of normal , unspecified, unspecified trimester]Onset: 09-03-2024 42-54-0895UtnfksokPhmdt screening for suspected conditions (not mental disorders or infectious disease) (5 sources)Thyroid function tests abnormal; Translations: [Abnormal results of thyroid function studies]Onset: 857781-56-6292FhqumjrlQcloj skin disorders (1 source)Follicular disorder, unspecifiedEpisodicResidual codes; unclassified (20 sources)Obstructive sleep apnea syndrome; Translations: [Obstructive sleep apnea (adult) (pediatric)]81-15-7189CowfcnhUeqptyf on above:patient denies. sleep study 2010Residual codes; unclassified (18 sources)Other specified postprocedural states; Translations: [Other postprocedural status]Onset: 07-16-2021 Resolved: 51-33-4055EmepeutcBeuiekja codes; unclassified (15 sources)Chill; Translations: [Chills (without fever)]54-49-4288Flgqrrsk Residual codes; unclassified (20 sources)History of sleeve gastrectomy; Translations: [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]]02-88-7253BmtdjzuiKqjocwk on above:Aprilesidual codes; unclassified (1 source)Chills (without fever); Translations: [Chills (without fever)] 45-95-2577WvohlsyjAwlhnmfp codes; unclassified (1 source)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]; Translations: [Personal history of surgery to other organs]26-50-2094GrwifcnaLdahrdqt codes; unclassified (9 sources)History of arthroscopic procedure on shoulder; Translations: [Other specified postprocedural states]50-00-5799DjwkwumhXodjqeaw codes; unclassified (1 source)Gestation period, 9 weeks; Translations: [9 weeks gestation of ]61-92-7166ZcmzdyutHsppefvf codes; unclassified (2 sources)Gestation period, 13 weeks; Translations: [13 weeks gestation of ]73-80-1646FjjxfcotLdpqfgah codes; unclassified (2 sources)Gestation period, 18 weeks; Translations: [18 weeks gestation of ]46-35-0139NcmooeezAcixotdd codes; unclassified (1 source)Gestation period, 20 weeks; Translations: [20 weeks gestation of ]12-70-4181UabhxzevJaeazxnb codes; unclassified (2 sources)Gestation period, 22 weeks; Translations: [22 weeks gestation of ]90-79-4563FgaphotjZvnrxrce codes; unclassified (2 sources)Gestation period, 26 weeks; Translations: [26 weeks gestation of ]00-61-7310RujkxzpvEjefutvh codes; unclassified (2 sources)Gestation period, 29 weeks; Translations: [29 weeks gestation of ]53-47-7656EduydwmuZlmslcgy codes; unclassified (2 sources)Gestation period, 31 weeks; Translations: [31 weeks gestation of ]64-04-2090NqkmfdkoFxui and subcutaneous tissue infections (20 sources)Abscess; Translations: [Cutaneous abscess, unspecified]08-01-2021 EpisodicSprains and strains (20 sources)Strain of unspecified muscle, fascia and tendon at shoulder and upper arm level, right arm, initialencounter; Translations: [Strain of other muscles, fascia and tendons at shoulder and upper arm level, right arm, initial encounter]EpisodicSubstance-related disorders (4 sources)Marijuana user; Translations: [Marijuana use]Onset: 12-05-2018 13-09-9818Bcyfywl disorders (20 sources)Hypothyroidism; Translations: [Acquired hypothyroidism]Onset: 12-05-2018 Resolved: 019760-71-7698UcrciibMdcgxma disorders (6 sources)Disorder of thyroid gland; Translations: [Disorder of thyroid, unspecified]37-35-6636AcmbgxhiTnwvedokwdwk (2 sources)History of sleeve gastrectomy; Translations: [Status post laparoscopic sleeve gastrectomy]Onset: 740278-21-4267Cfjlkgpzgnuq (5 sources)Patient encounter status; Translations: [Pre-op testing]09-03-2018 Unclassified (1 source) 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)37-19-7913Iwelyaafqrqb (20 sources)OB RemindersOnset: 42-81-404742160376-84-0071Asgcptklgvrh (2 sources)keep next scheduled appointmentUnclassified (1 source)IUI pregnancyOnset: 71-66-4610Rwhphrqesvnr (1 source)Pee's ThyroiditisOnset: 12-05-2024 Past or Other Problems Problem ClassificationProblemDateDocumented DateEpisodic/ChronicScreening and history of mental health and substance abuse codes (1 source)Personal history of nicotine dependenceOnset: 07-16-2021 Resolved: 60-37-8250CdzmyxptPdjyjnjxgmku (3 sources)History of bypass of atpkhuk54-50-7368Gudazsyrzetf (1 source)Encounter for supervision of resulting from assisted reproductive technology, mdslwvchac27-04-1947MVIIMYK: Highlighted row has been ruled out!Unclassified (1 source)No known active yyuwlrzs82-80-2171 Results Test NameValueInterpretationReference RangeFacilityUS OB BPP W NON-STRESS on 39-37-3713[place], [place] [address] Ultrasound Report Signed Patient: JAZ SANDERS MR#: [id number] : 1995 Acct:[id number] Age/Sex: 29 / F ADM Date: 02/25/25 Loc: US Attending Dr: Les Martinez D.O. Ordering Physician: Les Martinez D.O. Date of Service: 02/25/25 Procedure(s): US OB BPP w non-stress Accession Number(s): [id number] cc: Les Martinez D.O.; AMANDA FORD [place] [id number] Patient Name: JAZ SANDERS MRN: [id number] date: 1995 Sex: F Assigned Patient Location: [facility] Current Patient Location: Accession/Order Number: [id number] Exam Date: 02/25/2025 14:03 Report Date: 02/26/2025 [...] Umana M.D. 02/26/2025 8:30 AM Dictation Location: [place] [address] Electronically authenticated by: [id number] Y Date: 02/26/2025 08:30 Dictated By: Alana Umana M.D. Signed By: 02/26/25831 DD/ 9 TD/TT: Crematory Operator:TBHRadiology, Radiologist, MD - 02/26/2025 [place] [address] Ultrasound Report Signed Patient: JAZ SANDERS MR#: [id number] : 1995 Acct:[id number] Age/Sex: 29 / F ADM Date: 02/25/25 Loc: US Attending Dr: Les Martinez D.O. Ordering Physician: Les Martinez D.O. Date of Service: 02/25/25 Procedure(s): US OB BPP w non-stress Accession Number(s): [id number] cc: Les Martinez D.O.; AMANDA FORD [address] [address] Patient Name: JAZ SANDERS MRN: [id number] date: 1995 Sex: F Assigned Patient Location: [facility] Current Patient Location: Accession/Order Number: [id number] Exam Date: 02/25/2025 14:03 Report Date: 02/26/2025 [...] Umana M.D. 02/26/2025 8:30 AM Dictation Location: [place] [address] Electronically authenticated by: [id number] Y Date: 02/26/2025 08:30 Dictated By: Alana Umana M.D. Signed By: 02/26/25831 DD/ 9 TD/TT: Crematory Operator: GUDELIA HealthcareRadiology Study observation (narrative)NOMS HealthcareUS OB BPP W NON-STRESSOrdered By: Radiologist Radiology on 02-89-0445GZOAUniversity of Missouri Health Care Work Phone: aLL THYROID STIM HORMONEon 08-43-0239KJX Qn1.347 m[IU]/LNOMS HealthcareCLINISYNCNOMS HealthcareUrinalysis macro (dipstick) panel (U)on 69-13-8168Dlhtiabug, UANegativeNegative - 4(70) +++ mg/dLNOMS Healthcare Blood, UANegativeNegative - 50 Yehuda/mcLNOMS HealthcareClarity, UAClearNOMS HealthcareColor, UAYellowNOMS HealthcareGlucose, UANegativeNegative - 2000(110) ++++ mg/dLNONC HealthcareInterpretation and review of laboratory resultsNormal NOMS HealthcareKetones, UANegativeNegative - 160(16) ++++ mg/dLNOMS Healthcare Leukocytes, UANegativeNegative - 500+++ Kourtney/mcLNONC HealthcareNitrite, UA NegativeNegative - PositiveNOMS HealthcarepH, UA6.05 - 9NOMS HealthcareProtein, UANegativeNegative - 2000(20) ++++ mg/dLNOMS HealthcareSpec Grav, UA1.0201 - 1.03NONC HealthcareUrobilinogen, UA1.00.2 - 12 mg/dLNOMS HealthcareNOMS HealthcareUrinalysis macro (dipstick) panel (U)on 64-88-2023Kqjitywdu, UA NegativeNegative - 4(70) +++ mg/dLNONC HealthcareBlood, UANegativeNegative - 50 Yehuda/mcLNONC HealthcareClarity, UAClearNOMS HealthcareColor, UAYellowNONC HealthcareGlucose, UANegativeNegative - 2000(110) ++++ mg/dLNONC Healthcare Interpretation and review of laboratory resultsAbnormalNOMS HealthcareKetones, UAPositiveNegative - 160(16) ++++ mg/dLPR[facility] CHILDREN[facility]S [facility] HealthcareLeukocytes, UATrace Negative - 500+++ Kourtney/mcLPRIMARY CHILDREN'S HOSPITAL HealthcareNitrite, UANegativeNegative - Positive NOMS HealthcarepH, UA6.55 - 9NOMS HealthcareProtein, UANegativeNegative - 2000(20) ++++ mg/dLNONC HealthcareSpec Grav, UA1.0101 - 1.03NONC Healthcare Urobilinogen, UA2.00.2 - 12 mg/dLNOMS [facility] Medical CenterNOMS HealthcareUS OB FOLLOW UP TRANSABDOMINAL APPROACHon 50-54-9280UD OB FOLLOW UP TRANSABDOMINAL APPROACH FINDINGS: Comparison [...] Delivery: 04/23/25 Gestational Age as of 01/16/2025: 19u1oXynkpgdocd macro (dipstick) panel (U)on 01-95-6785Kvifzwjau, UANegativeNegative - 4(70) +++ mg/dLNOMS HealthcareBlood, UANegativeNegative - 50 Yehuad/mcLNOMS HealthcareClarity, UAClearNOMS Healthcare Color, UAYellowNOMS HealthcareGlucose, UANegativeNegative - 2000(110) ++++ mg/dL NOMS HealthcareInterpretation and review of laboratory resultsNormalNOMS HealthcareKetones, UANegativeNegative - 160(16) ++++ mg/dLNOMS Healthcare Leukocytes, UANegativeNegative - 500+++ Kourtney/mcLNOMS HealthcareNitrite, UA NegativeNegative - PositiveNOMS HealthcarepH, UA75 - 9NOMS HealthcareProtein, UA NegativeNegative - 2000(20) ++++ mg/dLNOMS HealthcareSpec Grav, UA1.011 - 1.03 NOMS HealthcareUrobilinogen, UA2.00.2 - 12 mg/dLNOMS HealthcareNOMS Healthcare ALL THYROID STIM HORMONEon 01-96-7752TEG Qn2.449 m[IU]/LNOMS HealthcareCLINISYNC NOMS HealthcareALL CBC WITH AUTO DIFFon 1995ZDMVHQFIH ABSOLUTE BVSP5XGGY HealthcareBasophils/100 WBC (Bld)0.3 %0.2 - 2.0 %NOMS HealthcareEosinophils/100 WBC (Bld)1.2 %0.9 - 7.0 %[facility] HealthcareErythrocyte distribution width (RBC) [Ratio]13.2 %11.0 - 15.0 %[facility] HealthcareHematocrit (Bld) [Volume fraction]35.6 %Low36.0 - 48.0 %[facility] HealthcareHemoglobin (Bld) [Mass/Vol]12 g/dL12.0 - 16.0 g/dLUniversity of Missouri Health CareIMMATURE GRANULOCYTES ABS AUTO0.1HighNOSSM DePaul Health CenterImmature granulocytes/100 WBC (Bld)0.8 %High0.0 - 0.5 %[facility] HealthcareInterpretation and review of laboratory resultsAbnormalUniversity of Missouri Health CareLYMPHOCYTES ABSOLUTE AUTO2.3 NOMSaint John'S HospitalLymphocytes/100 WBC (Bld)19.7 %Low20.5 - 60.0 %[facility] CenterH (RBC) [Entitic mass]29.6 pg26.7 - 34.0 pgUniversity of Missouri Health CareMCHC (RBC) [Mass/Vol] 33.7 g/dL29.9 - 35.2 g/dLUniversity of Missouri Health CareMCV (RBC) [Entitic vol]87.7 fL81.0 - 99.0 fLUniversity of Missouri Health CareMONOCYTES ABSOLUTE AUTO0.7NOSSM [facility] Health CenterMonocytes/100 WBC (Bld)6.2 %1.7 - 12.0 %[facility] CareNEUTROPHILS ABSOLUTE AUTO8.5HighNOSSM [facility]Paul Health CenterNeutrophils/100 WBC (Bld)71.8 %43.0 - 75.0 %[facility] Health CarePlatelet mean volume (Bld) [Entitic vol]8.7 fLLow9.5 - 13.5 fLUniversity of Missouri Health CareTBH EO #0.1 [facility] CareTB VPZ126WLRMSaint Luke's East Hospital RBC4.06LowNOSSM DePaul Health CenterTB WBC11.8 HighUniversity of Missouri Health CareCLINISYNCNKindred HospitalGLUCOSE 1 HOURon 05-46-3454Uswnfco [Mass/Vol]118 mg/dLNINF - 130 mg/dLNovant Health [facility] Urinalysis macro (dipstick) panel (U)on 90-91-9094Rnerqrbco, UANegativeNegative - 4(70) +++ mg/dLNOMS HealthcareBlood, UANegativeNegative - 50 Yehuda/mcLNOMS HealthcareClarity, UAClearNOMS HealthcareColor, UAYellowNOMS HealthcareGlucose, UANegativeNegative - 2000(110) ++++ mg/dLNONC HealthcareInterpretation and review of laboratory resultsNormalNOMS HealthcareKetones, UANegativeNegative - 160(16) ++++ mg/dLNONC HealthcareLeukocytes, UANegativeNegative - 500+++ Kourtney/mcL NOMS HealthcareNitrite, UANegativeNegative - PositiveNOMS HealthcarepH, UA75 - 9 NOMS HealthcareProtein, UANegativeNegative - 2000(20) ++++ mg/dLNONC Healthcare Spec Grav, UA1.011 - 1.03NOMS HealthcareUrobilinogen, UA1.00.2 - 12 mg/dLNONC HealthcareNONC HealthcareNo Panel Informationon 22-86-3860EWJQDLQRSSTRD HealthcareTB UA (CLEAN/CATCH) FLEXO OPERATOR/MICRO IF IND.on 83-56-9461KNNPXSUPK URINE NegativeNEGATIVENOMS HealthcareBLOOD URINESMALLAbnormalNEGATIVENONC Healthcare Clarity (U)CLEARCLEARNOMS HealthcareColor (U)LT. YELLOWYELLOWNONC Healthcare GLUCOSE URINE UANegativeNEGATIVE mg/dLNONC HealthcareInterpretation and review of laboratory resultsAbnormalNOMS HealthcareKetones Ql (U)NegativeNEGATIVE mg/dL NOM HealthcareLeukocyte esterase Test strip Ql (U)NegativeNEGATIVENOMS HealthcareNITRITE URINENegativeNEGATIVENOMS HealthcarepH (U)5.5 [pH]5.0 - 9.0 NOMS HealthcarePROTEIN URINENegativeNEG/TRACE mg/dLNONC HealthcareSPECIFIC GRAVITY URINE1.0151.005 - 1.025NONC HealthcareURINE MICROSCOPIC INDICATEDYESNONC HealthcareUROBILINOGEN URINE0.2 EU/dL0.2 - 1.0 EU/dLUniversity of Missouri Health CareTB URINE MICROSCOPIC ONLYon 89-36-9012UJADJQGB URINENONE SEENNONE SEEN #/HPFNOMS HealthcareCAST SEEN?NONE SEENNONE SEEN #/LPFNOMS HealthcareCRYSTALS SEEN?None SeenNone Seen #/HPFNOMS HealthcareMUCUS URINENONE SEENNONE SEENNONC Healthcare SQUAMOUS EPITHELIAL CELL URINERARENONE/RARE #/LPFNOSSM [facility] CenterTBH RBC0-2NOMS [facility] CenterTB WBCNONE SEENNONE SEEN #/HPFNOSSM [facility] CenterURINE CULTURE INDICATED NONOMS HealthcareUS OB 14+ WEEKS ANATOMY SCANon 11-49-4325HS OB 14+ WEEKS ANATOMY SCANEXAM: US OB [...] II, MD, PHD at 06-Dec-2024 08:04:50 AM [facility]eleradiologyNormalNot AvailableComment on above:Order Comment: US OB ANATOMY SINGLE W US OB CERVICAL LENGTH Estimated Date of Delivery: 04/23/25 Gestational Age as of 11/20/2024: 04f1yZmbgaelrhd complete panel (U)on 12-03-2024 Comment c/o urinary symptoms or increased blood pressure Name Collection Type:: VoidedFIRELANDSNOMS HealthcareAppearance of Urineon 80-93-9660Flzgvwexba (U)ClearNormalClearNOMS HealthcareComment on above:Order Comment: Comment c/o urinary symptoms or increased blood pressure Name Collection Type:: VoidedPerformed By: #### ADDONUAPLUS #### [address] [address] USABacteria [Presence] in Urine by AutomatedOrdered By: Eduardo Cruz on 96-52-3213Wnhddnzc Auto Ql (U)1+ [HPF]HighNone SeenMercy Health Allen HospitalBilirubin Test strip Ql (U)Ordered By: Eduardo Cruz on 51-84-8792Zakvrtiik Ql (U)NegativeNegativeMercy Health Allen HospitalColor of Urine by Autoon 07-11-3448Ngdwo (U)Light-YellowNormalYellowNOMS Healthcare Comment on above:Order Comment: Comment c/o urinary symptoms or increased blood pressure Name Collection Type:: VoidedPerformed By: #### ADDONUAPLUS #### [facility] [address] [place] [address] USADipstick and Microscopicon 20-64-6332Ycaojylw,Urine1+ [HPF]NormalNone SeenBroward Health Coral Springs Physician GroupComment on above:Order Comment: Comment c/o urinary symptoms or increased blood pressure Name Collection Type:: VoidedPerformed By: #### ADDONUAPLUS #### [address] [address] USABILIRUBIN,URINENegativeNormalNegativeNOMS Healthcare Comment on above:Order Comment: Comment c/o urinary symptoms or increased blood pressure Name Collection Type:: VoidedPerformed By: #### ADDONUAPLUS #### [place] [address] USAGlucose Ql (U)NormalNormalNormalNOMS HealthcareComment on above:Order Comment: Comment c/o urinary symptoms or increased blood pressure Name Collection Type:: VoidedPerformed By: #### ADDONUAPLUS #### [place] [address] USAHyaline Casts,UrineNoneNormal0-8The [facility] Physician GroupComment on above:Order Comment: Comment c/o urinary symptoms or increased blood pressure Name Collection Type:: VoidedPerformed By: #### ADDONUAPLUS #### [place] [address] USAMucus,Urine1+ [LPF]Critically abnormalThe [facility] Physician GroupComment on above:Order Comment: Comment c/o urinary symptoms or increased blood pressure Name Collection Type:: VoidedResult Comment: PERFORMED BY: [place] [address] PATHOLOGIST PLUMBER'S HELPER DAMIÁN DOSHI M.D.Performed By: #### ADDONUAPLUS #### [place] [address] USANITRITE,URINENegativeNormalNegativeNOMS HealthcareComment on above:Order Comment: Comment c/o urinary symptoms or increased blood pressure Name Collection Type:: VoidedPerformed By: #### ADDONUAPLUS #### [place] [address] USAOCCULT BLOOD,URINE3+NormalNegativeNOMS HealthcareComment on above:Order Comment: Comment c/o urinary symptoms or increased blood pressure Name Collection Type:: VoidedResult Comment: PERFORMED BY: [place] [address] PATHOLOGIST PLUMBER'S HELPER DAMIÁN DOSHI M.D.Performed By: #### ADDONUAPLUS #### [facility] [address] [place] [address] USAPROTEIN,URINENegativeNormalNegativeNOMS HealthcareComment on above:Order Comment: Comment c/o urinary symptoms or increased blood pressure Name Collection Type:: VoidedPerformed By: #### ADDONUAPLUS #### [place] [address] USARBC,Ghvjo5-2Nzlgpl5-1Qpg [facility] Physician GroupComment on above:Order Comment: Comment c/o urinary symptoms or increased blood pressure Name Collection Type:: VoidedPerformed By: #### ADDONUAPLUS #### [place] [address] USASPECIFICY GRAVITY,URINE1.877Rqmzme2.001-1.030NOMS HealthcareComment on above:Order Comment: Comment c/o urinary symptoms or increased blood pressure Name Collection Type:: VoidedPerformed By: #### ADDONUAPLUS #### [place] [address] USASquamous Epithelial Cell,Zwbce4-5Vynzax1-5Pmg [facility] Physician GroupComment on above:Order Comment: Comment c/o urinary symptoms or increased blood pressure Name Collection Type:: VoidedPerformed By: #### ADDONUAPLUS #### [place] [address] USAUROBILINOGEN,URINENormalNormalNormalNOMS HealthcareComment on above:Order Comment: Comment c/o urinary symptoms or increased blood pressure Name Collection Type:: VoidedPerformed By: #### ADDONUAPLUS #### [place] [address] USAWBC,Kfxcq4-2Xcovoa6-3Zye [facility] Physician GroupComment on above:Order Comment: Comment c/o urinary symptoms or increased blood pressure Name Collection Type:: VoidedPerformed By: #### ADDONUAPLUS #### [place] [address] USAEpithelial cells.squamous [#/area] in Urine sediment by Automated countOrdered By: Eduardo Cruz on 40-77-8882Gugqpmhgcb cells.squamous Auto (Urine sed) [#/Area]1-2 [HPF]0-2FVeterans Health Administration Erythrocytes [#/area] in Urine sediment by Automated countOrdered By: Eduardo Cruz on 69-72-5230AKP Auto (Urine sed) [#/Area]1-2 [HPF]0-4FVeterans Health AdministrationGlucose [Mass/volume] in Urine by Test stripOrdered By: Eduardo Cruz on 39-28-3830Dfakxuh Test strip (U) [Mass/Vol]Normal mg/dLNormalMercy Health Allen HospitalHemoglobin Test strip Ql (U)Ordered By: Eduardo Cruz on 49-54-5747Uhrktdfrhi Ql (U)3+HighNegativeMercy Health Allen Hospital Hyaline casts [#/area] in Urine sediment by Automated countOrdered By: Eduardo Cruz on 94-38-6531Pmxlwqm casts Auto (Urine sed) [#/Area]None [LPF]0-8[facility] HospitalKetones [Presence] in Urine by Test stripon 12-02-2024 Ketones Ql (U)NegativeNormalNegativeNOMS HealthcareComment on above:Order Comment: Comment c/o urinary symptoms or increased blood pressure Name Collection Type:: VoidedPerformed By: #### ADDONUAPLUS #### [facility] [address] [place], [place] [id number] USALeukocyte esterase [Presence] in Urine by Test stripon 10-71-1063Wfdnmjpiw esterase Test strip Ql (U)NegativeNormalNegativeNOMS HealthcareComment on above:Order Comment: Comment c/o urinary symptoms or increased blood pressure Name Collection Type:: VoidedPerformed By: #### ADDONUAPLUS #### [facility] [address] [place], [place] [id number] USALeukocytes [#/area] in Urine sediment by Automated count Ordered By: Eduardo Cruz on 25-28-0706SFY Auto (Urine sed) [#/Area]1-2 [HPF]0-4 [facility] HospitalMucus [Presence] in Urine by AutomatedOrdered By: Eduardo Cruz on 83-42-6678Bnpeb Auto Ql (U)1+ [LPF]AbnormalMercy Health Allen HospitalNitrite Test strip Ql (U)Ordered By: Eduardo Cruz on 73-14-1531Woouujh Ql (U)NegativeNegSelect Medical Specialty Hospital - ColumbusProtein Test strip (U) [Mass/Vol]Ordered By: Eduardo Cruz on 06-78-5267Qlsllnm (U) [Mass/Vol]NegativeNegativeLouis Stokes Cleveland VA Medical Centerpecific gravity Test strip (U) [Rel density]Ordered By: Eduardo Cruz on 22-68-0034Miyyvmos gravity (U) [Rel density]1.0171.001-1.030[facility] HospitalUrobilinogen Test strip (U) [Mass/Vol]Ordered By: Eduardo Cisneroscarlos on 31-36-2176Oitjqewtscwz (U) [Mass/Vol]Normal mg/dLNormOhioHealth Marion General HospitalpH of Urine by Test stripon 92-15-7154uY (U)5.5 [pH]Normal5.0-9.0NOMS HealthcareComment on above:Order Comment: Comment c/o urinary symptoms or increased blood pressure Name Collection Type:: VoidedPerformed By: #### ADDONUAPLUS #### [place] [address] USABasophils Auto (Bld) [#/Vol]Ordered By: Elizabeth Osborne ([place]) on 60-68-9145Uxzxgqrol (Bld) [#/Vol]0.0 10 3/uL0.0-0.1FVeterans Health AdministrationBasophils/100 WBC Auto (Bld)Ordered By: Elizabeth Osborne ([place]) on 47-85-9214Tfyhuirje/100 WBC (Bld)0.3 %0.2-2.0[facility] Eosinophils/100 WBC Auto (Bld)Ordered By: (Roman) Elizabeth Osborne on 12-01-2024 Eosinophils/100 WBC (Bld)1.8 %0.9-7.0[facility] Erythrocyte distribution width Auto (RBC) [Ratio]Ordered By: Elizabeth Osborne ([place]) on 47-89-6319Ymdutcbzgag distribution width (RBC) [Ratio]14.0 %11.0-15.0 [facility] HospitalGlobulin Calc (S) [Mass/Vol]Ordered By: (Owens) Elizabeth Osborne on 01-84-7130Knhckzhu (S) [Mass/Vol]3.6 g/dLMercy Health Allen HospitalGlomerular filtration rate (GFR) estimation in non- AmericanOrdered By: (Roman) Elizabeth India on 17-59-8816JML/1.73 sq M.predicted among non-blacks MDRD (S/P/Bld) [Vol rate/Area]mL/min/{1.73_m2}>=60 mL/min/1.73m 2FVeterans Health AdministrationHematocrit Auto (Bld) [Volume fraction]Ordered By: (Roman) Elizabeth Osborne on 41-45-2573Qwejepnecq (Bld) [Volume fraction]38.0 %36.0-48.0[facility] HospitalHemoglobin [Mass/volume] in BloodOrdered By: (Roman) Elizabeth Osborne on 19-85-1044Vwlvfgzefp (Bld) [Mass/Vol]13.0 g/dL12.0-16.0[facility] HospitalLaboratory - Chemistry and Chemistry - challengeOrdered By: (Roman) Elizabeth Osborne on 77-54-0577Pjrkpcqfk Ql (U)NegativeNEGATIVEMercy Health Allen Hospital Glucose (U) [Mass/Vol]NegativeNEGATIVEMercy Health Allen HospitalKetones Ql (U)NegativeNEGATIVEMercy Health Allen HospitalpH (U)6.0 [pH]5.0-9.0 [facility] Medical Centerpecific gravity (U) [Rel density]1.025 1.005-1.025Mer[facility] HospitalUrobilinogen Qn (U)1.0 {Fabián'U}/dL0.2-1.0[facility] HospitalAlbumin [Mass/Vol]3.1 g/dL Low3.4-5.0[facility] HospitalALP [Catalytic activity/Vol]45 U/LLow 46-116Mer[facility] HospitalALT [Catalytic activity/Vol]20 U/L14-59 [facility] HospitalAST [Catalytic activity/Vol]14 U/KQyw52-76 [facility] HospitalBilirubin [Mass/Vol]0.4 mg/dL0.2-1.0[facility] HospitalCalcium [Mass/Vol]8.6 mg/dL8.5-10.1FVeterans Health AdministrationChloride [Moles/Vol]106 mmol/C91-122RyehtwvyaMercy Health Allen HospitalCO2 [Moles/Vol]25.7 mmol/L21.0-32.0[facility] Creatinine [Mass/Vol]0.37 mg/dLLow0.55-1.02[facility] GFR/1.73 sq M.predicted MDRD (S/P/Bld) [Vol rate/Area]mL/min/{1.73_m2}>=60 mL/min/1.73m 2FVeterans Health AdministrationGlucose [Mass/Vol]61 mg/dLLow 74-106Mer[facility] HospitalPotassium [Moles/Vol]3.9 mmol/L3.5-5.1 [facility] HospitalProtein [Mass/Vol]6.7 g/dL6.4-8.2FGlenbeigh Hospitalodium [Moles/Vol]139 mmol/E360-714BolyknlaeMercy Health Allen HospitalUrea nitrogen [Mass/Vol]3.0 mg/dLLow7.0-18.0[facility] HospitalUrea nitrogen/Creatinine [Mass ratio]8.1 mg/mgMercy Health Allen HospitalLaboratory - Hematology and Cell countsOrdered By: Elizabeth Osborne ([place]) on 81-57-5565Jtsoluzq granulocytes/100 WBC (Bld)1.0 %High0.0-0.5 [facility] HospitalLaboratory - Specimen informationOrdered By: Elizabeth Osborne ([place]) on 40-97-1170Jrsmujgnej (U)CLEARCLEARFVeterans Health AdministrationColor (U)LT. YELLOWYELLOWMercy Health Allen Hospital Laboratory - UrinalysisOrdered By: Elizabeth Osborne ([place]) on 15-09-7145Usbegwglw esterase Test strip Ql (U)NegativeNEGATIVEMercy Health Allen Hospital Nitrite Ql (U)NegativeNEGATIVEMercy Health Allen HospitalProtein Ql (U) NegativeNEG/TRACEMercy Health Allen HospitalLeukocytes [#/volume] corrected for nucleated erythrocytes in Blood by Automated counOrdered By: (Owens) Elizabeth Osborne on 15-20-1545CTB corrected for nucl RBC Auto (Bld) [#/Vol]10.0 10 3/uL4.0-11.0[facility] HospitalLymphocytes Auto (Bld) [#/Vol]Ordered By: (Owens) Elizabethnura Thomason on 88-80-8375Luuzvkbtoik (Bld) [#/Vol]2.2 10 3/uL1.2-3.8[facility] HospitalLymphocytes/100 WBC Auto (Bld)Ordered By: (Owens) Elizabethnura Thomason on 77-41-9137Skhjbprklna/100 WBC (Bld)22.1 %20.5-60.0[facility] Auto (RBC) [Entitic mass]Ordered By: (Owens) Elizabethnura Thomason on 74-83-0084XAB (RBC) [Entitic mass] 29.8 pg26.7-34.0[facility] HospitalMCHC Auto (RBC) [Mass/Vol] Ordered By: (Owens) Elizabethnura Thomason on 92-90-3136OQOR (RBC) [Mass/Vol]34.2 g/dL 29.9-35.2FVeterans Health AdministrationMCV Auto (RBC) [Entitic vol]Ordered By: (Owens) Elizabethnura Thomason on 55-97-0981VII (RBC) [Entitic vol]87.2 fL81.0-99.0 [facility] HospitalMonocytes Auto (Bld) [#/Vol]Ordered By: (Owens) Elizabethnura Thomason on 40-73-4908Cxehopjir (Bld) [#/Vol]0.7 10 3/uL0.3-0.8 [facility] HospitalMonocytes/100 WBC Auto (Bld)Ordered By: (Owens) Elizabeth India on 42-36-4349Ofjoakmmz/100 WBC (Bld)6.5 %1.7-12.0 [facility] HospitalNeutrophils Auto (Bld) [#/Vol]Ordered By: (Owens) Elizabeth India on 67-33-5827Founocdtlbo (Bld) [#/Vol]6.9 10 3/uLHigh 1.4-6.5FVeterans Health AdministrationNeutrophils/100 WBC Auto (Bld)Ordered By: Angelina) Elizabeth Osborne on 21-04-8909Cqjxpcvsanb/100 WBC (Bld)68.3 %43.0-75.0 [facility] HospitalNo Panel InformationOrdered By: (Roman) Elizabeth Osborne on 51-60-2238Mtrng Microscopic ReviewNOMercy Health Allen HospitalUrine Occult BloodNegativeNEGATIVEMercy Health Allen Hospital Eosinophils # (Auto)0.2 10 3/uL0.0-0.7FVeterans Health AdministrationImmature Granulocyte # (Auto)0.10 10 3/uLHigh0.00-0.03[facility] Platelet mean volume Auto (Bld) [Entitic vol]Ordered By: Elizabeth Osborne ([place]) on 63-89-0972Lulfvlke mean volume (Bld) [Entitic vol]8.3 fLLow9.5-13.5FVeterans Health AdministrationPlatelets Auto (Bld) [#/Vol]Ordered By: Angelina) Elizabeth Osborne on 46-69-1466Rinyyfkec (Bld) [#/Vol]177 10 3/aX017-879GgohsmsmaMercy Health Allen HospitalRBC Auto (Bld) [#/Vol]Ordered By: Angelina) Elizabeth Osborne on 91-37-8370CJK (Bld) [#/Vol]4.36 10 6/uL4.20-5.40[facility] Medical Centererum or plasma albumin/globulin mass ratioOrdered By: (Roman) Elizabeth Osborne on 42-04-2728Nxzjabp/Globulin [Mass ratio]0.9 {ratio}[facility] Centererum or plasma anion gap determinationOrdered By: Angelina) Elizabeth Osborne on 10-05-2899Eupde gap [Moles/Vol]11.2 mmol/LFVeterans Health AdministrationBasophils Auto (Bld) [#/Vol]Ordered By: Chris Dickerson on 04-23-2251Rftwnzzdj (Bld) [#/Vol]0.0 10 3/uL0.0-0.1FVeterans Health AdministrationBasophils/100 WBC Auto (Bld)Ordered By: Chris Dickerson on 11-30-2024 Basophils/100 WBC (Bld)0.2 %0.2-2.0[facility] Eosinophils/100 WBC Auto (Bld)Ordered By: Chris Dickerson on 11-30-2024 Eosinophils/100 WBC (Bld)1.7 %0.9-7.0[facility] Erythrocyte distribution width Auto (RBC) [Ratio]Ordered By: Chris Dickerson on 38-04-0164Diztfsrxzlc distribution width (RBC) [Ratio]14.1 %11.0-15.0[facility] HospitalGlobulin Calc (S) [Mass/Vol]Ordered By: Chris Dickerson on 38-97-0018Bfgjqieu (S) [Mass/Vol]3.3 g/dLMercy Health Allen Hospital Glomerular filtration rate (GFR) estimation in non- AmericanOrdered By: Chris Dickerson on 02-56-5021YWJ/1.73 sq M.predicted among non-blacks MDRD (S/P/Bld) [Vol rate/Area]mL/min/{1.73_m2}>=60 mL/min/1.73m 2FVeterans Health AdministrationHematocrit Auto (Bld) [Volume fraction]Ordered By: Chris Dickerson on 36-85-6005Eodahskvnc (Bld) [Volume fraction]36.2 %36.0-48.0[facility] HospitalHemoglobin [Mass/volume] in BloodOrdered By: Chris Dickerson on 59-04-3485Acqlhadgpy (Bld) [Mass/Vol]12.6 g/dL12.0-16.0[facility] HospitalLaboratory - Chemistry and Chemistry - challengeOrdered By: Chris Dickerson on 39-39-0732Gefivnwbs Ql (U)NegativeNEGATIVEMercy Health Allen HospitalGlucose (U) [Mass/Vol]NegativeNEGATIVEMercy Health Allen HospitalKetones Ql (U)NegativeNEGATIVEMercy Health Allen HospitalpH (U)6.0 [pH]5.0-9.0[facility] Medical Centerpecific gravity (U) [Rel density] 1.0151.005-1.025[facility] HospitalUrobilinogen Qn (U)1.0 {Fabián'U}/dL0.2-1.0[facility] HospitalAlbumin [Mass/Vol]3.1 g/dL Low3.4-5.0[facility] HospitalALP [Catalytic activity/Vol]47 U/L 46-116[facility] HospitalALT [Catalytic activity/Vol]20 U/L14-59 [facility] HospitalAST [Catalytic activity/Vol]12 U/DGti77-27 [facility] HospitalBilirubin [Mass/Vol]0.3 mg/dL0.2-1.0[facility] HospitalBilirubin.direct [Mass/Vol]0.1 mg/dL0.0-0.2FVeterans Health AdministrationCalcium [Mass/Vol]8.8 mg/dL8.5-10.1FVeterans Health AdministrationChloride [Moles/Vol]108 mmol/XZmez44-445YdxnybhpfMercy Health Allen HospitalCO2 [Moles/Vol]26.0 mmol/L21.0-32.0[facility] Creatinine [Mass/Vol]0.32 mg/dLLow0.55-1.02[facility] GFR/1.73 sq M.predicted MDRD (S/P/Bld) [Vol rate/Area]mL/min/{1.73_m2}>=60 mL/min/1.73m 2FVeterans Health AdministrationGlucose [Mass/Vol]74 mg/nG09-307 [facility] HospitalPotassium [Moles/Vol]4.1 mmol/L3.5-5.1FVeterans Health AdministrationProtein [Mass/Vol]6.4 g/dL6.4-8.2FGlenbeigh Hospitalodium [Moles/Vol]142 mmol/S286-740EsdtygwctMercy Health Allen HospitalUrate [Mass/Vol]3.0 mg/dL2.6-6.0[facility] HospitalUrea nitrogen [Mass/Vol]7.0 mg/dL7.0-18.0[facility] HospitalUrea nitrogen/Creatinine [Mass ratio]21.9 mg/mgMercy Health Allen Hospital Laboratory - Hematology and Cell countsOrdered By: Chris Dickerson on 11-30-2024 Immature granulocytes/100 WBC (Bld)0.7 %High0.0-0.5FVeterans Health AdministrationLaboratory - Specimen informationOrdered By: Chris Dickerson on 11-30-2024 Appearance (U)CLEARCLEARFVeterans Health AdministrationColor (U)LT. YELLOW YELLOWMercy Health Allen HospitalLaboratory - UrinalysisOrdered By: Chris Dickerson on 36-73-3464Iqhflinhv esterase Test strip Ql (U)SMALLAbnormal NEGATIVEMercy Health Allen HospitalMucus Ql (Urine sed)TRACEAbnormalNONE SEENMercy Health Allen HospitalNitrite Ql (U)NegativeNEGATIVEMercy Health Allen HospitalProtein Ql (U)NegativeNEG/TRACEMercy Health Allen HospitalLeukocytes [#/volume] corrected for nucleated erythrocytes in Blood by Automated counOrdered By: Chris Dickerson on 65-35-7778APD corrected for nucl RBC Auto (Bld) [#/Vol]8.7 10 3/uL4.0-11.0[facility] Lymphocytes Auto (Bld) [#/Vol]Ordered By: Chris Dickerson on 34-25-3838Ynnjccrfhvg (Bld) [#/Vol]2.0 10 3/uL1.2-3.8[facility] HospitalLymphocytes/100 WBC Auto (Bld)Ordered By: Chris Dickerson on 78-39-6538Kzyygmmwfdo/100 WBC (Bld) 22.9 %20.5-60.0[facility] Auto (RBC) [Entitic mass] Ordered By: Chris Dickerson on 59-80-9139NSG (RBC) [Entitic mass]30.0 pg26.7-34.0 [facility] HospitalMCHC Auto (RBC) [Mass/Vol]Ordered By: Chris Dickerson on 37-51-8491OVJM (RBC) [Mass/Vol]34.8 g/dL29.9-35.2FVeterans Health AdministrationMCV Auto (RBC) [Entitic vol]Ordered By: Chris Dickerson on 52-44-4223DEU (RBC) [Entitic vol]86.2 fL81.0-99.0[facility] HospitalMonocytes Auto (Bld) [#/Vol]Ordered By: Chris Dickerson on 11-30-2024 Monocytes (Bld) [#/Vol]0.6 10 3/uL0.3-0.8[facility] Monocytes/100 WBC Auto (Bld)Ordered By: Chris Dickerson on 36-54-3839Pwcimlfsv/100 WBC (Bld)7.2 %1.7-12.0[facility] HospitalNeutrophils Auto (Bld) [#/Vol]Ordered By: Chris Dickerson on 09-72-2756Wjalgmarpal (Bld) [#/Vol]5.9 10 3/uL1.4-6.5FVeterans Health AdministrationNeutrophils/100 WBC Auto (Bld) Ordered By: Chris Dickerson on 04-24-6668Bciseewlavn/100 WBC (Bld)67.3 %43.0-75.0 [facility] HospitalNo Panel InformationOrdered By: Chris Dickerson on 45-19-5105Depjs BacteriaMODERATE #/HPFAbnormalNONE [facility] HospitalUrine Culture ReflexedYE-[facility] Urine Occult BloodNegativeNEGATIVEMercy Health Allen HospitalUrine Other CastsNONE SEEN #/LPFNONE [facility] HospitalUrine Other CrystalsNone Seen #/HPFNone [facility]. [facility] HospitalUrine RBC0-2 #/HPF0-2FVeterans Health AdministrationUrine Squamous Epithelial CellsFEW #/LPFAbnormalNONE/RAREMercy Health Allen HospitalUrine WBC0-2 #/HPF AbnormalNONE [facility] HospitalEosinophils # (Auto)0.2 10 3/uL0.0-0.7FVeterans Health AdministrationImmature Granulocyte # (Auto)0.06 10 3/uLHigh0.00-0.03[facility] HospitalPlatelet mean volume Auto (Bld) [Entitic vol]Ordered By: Chris Dickerson on 05-53-5038Yytjrrtc mean volume (Bld) [Entitic vol]8.7 fLLow9.5-13.5FVeterans Health AdministrationPlatelets Auto (Bld) [#/Vol]Ordered By: Chris Dickerson on 72-24-2525Lzcladfmt (Bld) [#/Vol] 185 10 3/uQ686-603TvvxqwsjiMercy Health Allen HospitalRBC Auto (Bld) [#/Vol]Ordered By: Chris Dickerson on 28-49-0130KWP (Bld) [#/Vol]4.20 10 6/uL4.20-5.40[facility] Centererum or plasma albumin/globulin mass ratioOrdered By: Chris Dickerson on 43-95-7974Rpachyo/Globulin [Mass ratio]0.9 {ratio}[facility] Centererum or plasma anion gap determinationOrdered By: Chris Dickerson on 53-57-3583B[place]k gap [Moles/Vol]12.1 mmol/LFVeterans Health AdministrationUrine Cultureon 09-04-0843Ewyyqbjf identified Cx Nom (U)50,000 colonies/ml mixed bacterial skin contaminants 2 Days PERFORMED BY: [place] [address] PATHOLOGIST PLUMBER'S HELPER DAMIÁN DOSHI M.D.NormalBroward Health Coral Springs Physician GroupComment on above: Performed By: #### CUU #### [place] [address] USARECURRENT VAGINITIS (HTRX)on 64-47-2358OERUIEUHS VAGINAE0 NOMS HealthcareATOPOBIUM VAGINAENot detectedNOMS HealthcareBVAB 2,3 (BACTERIAL VAGINOSIS ASSOCIATED BACTERIA 2, 3); MOBILUNCUS AQP5LYGO HealthcareBVAB 2,3 (BACTERIAL VAGINOSIS ASSOCIATED BACTERIA 2, 3); MOBILUNCUS SPPNot detectedNOMS HealthcareCANDIDA ALBICANS, PARAPSILOSIS, HZFUSOBVEZ5HAYI HealthcareCANDIDA ALBICANS, PARAPSILOSIS, TROPICALISNot detectedNOMS HealthcareCANDIDA GLABRATA0 NOMS HealthcareCANDIDA GLABRATANot detectedNOMS HealthcareCANDIDA [id number] HealthcareCANDIDA KRUSEINot detectedNOMS HealthcareCHLAMYDIA QLSJFFYLGFB9NIDI HealthcareCHLAMYDIA TRACHOMATISNot detectedNOMS HealthcareGARDNERELLA VAGINALIS0 NOMS HealthcareGARDNERELLA VAGINALISNot detectedNOMS HealthcareMEGASPHAERA (TYPES 1, 2)0NOMS HealthcareMEGASPHAERA (TYPES 1, 2)Not detectedNOMS Healthcare MYCOPLASMA HJRSZUJAFP6GRVD HealthcareMYCOPLASMA GENITALIUMNot detectedNOMS HealthcareNEISSERIA ZNPARWWQEFH5RWXN HealthcareNEISSERIA GONORRHOEAENot detected NOMS HealthcareTRICHOMONAS GYVSYOCOV1MGAQ HealthcareTRICHOMONAS VAGINALISNot detectedNOMS HealthcareNOMS HealthcareALL THYROID STIM HORMONEon 74-55-3849LUV Qn1.702 m[IU]/LNOMS HealthcareCLINISYNCNOMS HealthcareAlpha-fetoprotein (AFP) measurement (fzwunpor-we-aduaty)Ordered By: Les Martinez on 84-16-8944NWI [MoM] 0.87.[facility] HospitalAssess gestational ageOrdered By: Les Martinez on 00-33-0839Ukjzpglgxer age18.0 weeks.[facility] Estimation of maternal age-specific risk of Down syndrome birthOrdered By: Les Martinez on 41-05-3634Ndl [Time]30.1 yr.[facility] HospitalInsulin dependent diabetes mellitus detectionOrdered By: Les Martinez on 11-20-2024 Insulin dependent diabetes mellitus QlNo.[facility] Interpretation of serum or plasma second trimester quad maternal screen (narrative reOrdered By: Les Martinez on 59-48-8553Aokmiz trimester quad maternal screen Gonzales [Interp]Comment.[facility] HospitalComment on above: Interpretation: Screen NegativeThis result [...] and older.Second trimester quad maternal screen Gonzales [Interp]Negative.[facility] HospitalLaboratory - Chemistry and Chemistry - challengeOrdered By: Les Martinez on 16-75-2878GXZ Qn1.702 m[IU]/L 0.358-3.740[facility] HospitalNo Panel InformationOrdered By: Les Martinez on 09-96-3955BPW Triple Screen CommentComment.[facility] HospitalComment on above:Gisel Gandhi, Ph.D., DABCCDirectorReferences: Available Upon Request.Multiples Of Median Cutoffs For AFP ElevationsSingleton 2.5 Black 2.8IDD 2.0 Twins 4.5 Abbreviation DefinitionsIDD - Insulin Dep DiabetesOSBR - Open Spina Bifida RiskFor further inquiries contact [employer] at [phone].This test was developed and its performance characteristicsdetermined by [employer]. It has not been cleared or approvedby the Food and Drug Administration.Performed at: [facility] [employer] [id number] [place], [place] [id number] Director: Lorena Ellis [facility], Phone: [phone] Fetoprotein Results ReceivedReport.[facility] HospitalGestational Age Calculation MethodUltrasound.[facility] HospitalComment on above:18.0 on 11/20/2024Recalculations are not recommended when gestational datingby LMP and ultrasound are within 10 days. Maternal Quad Test [id number].[facility] HospitalMaternal RaceOther .[facility] HospitalMultiple PregnancyNo.[facility] VA Medical Centererum or plasma fncet-3-cvletrufaxh measurement (mass/volume) Ordered By: Les Martinez on 57-71-3150VVN [Mass/Vol]27.6 ng/mL.[facility] HospitalUrinalysis macro (dipstick) panel (U)on 83-36-7314Iclyjumhx, UA NegativeNegative - 4(70) +++ mg/dLNOMS HealthcareBlood, UANegativeNegative - 50 Yehuda/mcLNOMS HealthcareClarity, UAClearNOMS HealthcareColor, UAYellowNOMS HealthcareGlucose, UANegativeNegative - 2000(110) ++++ mg/dLNOMS Healthcare Interpretation and review of laboratory resultsAbnormalNONC HealthcareKetones, UANegativeNegative - 160(16) ++++ mg/dLUniversity of Missouri Health CareLeukocytes, UA2+Negative - 500+++ Kourtney/mcLNOSSM DePaul Health CenterNitrite, UANegativeNegative - PositiveNONC HealthcarepH, UA85 - 9NONC HealthcareProtein, UANegativeNegative - 2000(20) ++++ mg/dLUniversity of Missouri Health CareSpec Grav, UA1.011 - 1.03NOSSM DePaul Health CenterUrobilinogen, UA1.0 0.2 - 12 mg/dLNovant Health/NHRMCLaboratory - Chemistry and Chemistry - challengeOrdered By: Chris Dickerson on 13-85-2540Ndxvyceff Ql (U)Negative NEGATIVEMercy Health Allen HospitalGlucose (U) [Mass/Vol]NegativeNEGATIVE [facility] HospitalKetones Ql (U)NegativeNEGChillicothe HospitalpH (U)7.5 [pH]5.0-9.0[facility] Specific gravity (U) [Rel density]1.0101.005-1.025[facility] HospitalUrobilinogen Qn (U)1.0 {Fabián'U}/dL0.2-1.0[facility] HospitalLaboratory - Specimen informationOrdered By: Chris Dickerson on 11-17-2024 Appearance (U)CLEARCLEARFVeterans Health AdministrationColor (U)LT. YELLOW YELLOWMercy Health Allen HospitalLaboratory - UrinalysisOrdered By: Chris Dickerson on 62-20-7194Wjnzvxsyx esterase Test strip Ql (U)NegativeNEGATIVE [facility] HospitalMucus Ql (Urine sed)NONE SEENNONE [facility] HospitalNitrite Ql (U)NegativeNEGChillicothe HospitalProtein Ql (U)NegativeNEG/TRACEMercy Health Allen HospitalNo Panel InformationOrdered By: Chris Dickerson on 93-64-1453Rqtlq BacteriaTRACE #/HPF AbnormalNONE [facility] HospitalUrine Culture ReflexedNO [facility] HospitalUrine Occult BloodNegativeNEGChillicothe HospitalUrine Other CastsNONE SEEN #/LPFNONE SEENAtrium Health University Cityelands Regional Medical CenterUrine Other CrystalsNone Seen #/HPFNone St. Charles HospitalUrine RBCNONE SEEN #/HPF0-2FVeterans Health AdministrationUrine Squamous Epithelial CellsRARE #/LPFNONE/RAREMercy Health Allen HospitalUrine WBCNONE SEEN #/HPFNONE [facility] Ultrasound - Officeon 83-74-5029Oszlwqxcm Study observation (narrative)[facility]MedicNorth [facility] Hospital SystemUrinalysis macro (dipstick) panel (U)on 26-11-0556Ijhexvose, UA NegativeNegative - 4(70) +++ mg/dLNOMS HealthcareBlood, [...] HealthcareAppearance of UrineOrdered By: Kassidy Arriaza on 76-44-6358Kiptpgtlzg (U)ClearNormalClearMercy Health Allen HospitalComment on above:Order Comment: Name Collection Type:: Clean- Voided MidstreamPerformed By: #### UA, CUU #### [place] [address] USABilirubin Test strip Ql (U)Ordered By: Kassidy Arriaza on 58-94-7670Qtcpirshb Ql (U)NegativeNegSelect Medical Specialty Hospital - Columbus Chlamydia/GC Amplificationon 88-04-8743Iximashan Trachomotis, NAANegativeNormal NegativeThe [facility] Hospital Physician GroupComment on above:Order Comment: SOURCE OF SPECIMEN: GenitalPerformed By: #### GCCHLAMAMP #### [facility] , #### CUGEN #### [place] [address] USANeisseria Gonorrhoeae, NAANegativeNormalNegativeThe [facility] Hospital Physician GroupComment on above:Order Comment: SOURCE OF SPECIMEN: GenitalResult Comment: Performed at: = - [facility] [id number] Train Braker: Dagmar Love MD, Phone: [phone] PERFORMED BY: [place] [address] PATHOLOGIST PLUMBER'S HELPER DAMIÁN DOSHI M.D.Performed By: #### GCCHLAMAMP #### [facility] , #### CUGEN #### [place] [address] USAColor of Urine by AutoOrdered By: Kassidy Arriaza on 32-10-6115Alyfd (U)ColorlessNormalYProtestant HospitalComment on above:Order Comment: Name Collection Type:: Clean-Voided MidstreamPerformed By: #### UA, CUU #### [place] [address] USAGenital Cultureon 85-48-9505Dndbfcz CultureGenital Results Light Normal Urogenital Damián 2 Days No More GC Specimen not tested for Neisseria gonorrheae PERFORMED BY: [place] [address] PATHOLOGIST PLUMBER'S HELPER DAMIÁN DOSHI M.D.NormalThe [facility] Hospital Physician GroupComment on above: Performed By: #### GCCHLAMAMP #### [facility] , #### CUGEN #### [place] [address] USAGenital specimen bacteria identification by aerobic cultureOrdered By: Kassidy Arriaza on 07-20-0963Ykusfflg identified Aer cx Nom (Genital specimen)[facility] HospitalGlucose [Mass/volume] in Urine by Test stripOrdered By: Kassidy Arriaza on 57-07-2430Lmjrzoe Test strip (U) [Mass/Vol]Normal mg/dLNormOhioHealth Marion General HospitalHemoglobin Test strip Ql (U)Ordered By: Kassidy Arriaza on 57-43-9301Dyfsfjzngf Ql (U)Negative [facility] Conneaut Medical CenterKetones [Presence] in Urine by Test stripOrdered By: Kassidy Arriaza on 25-11-7664Qmbhfwf Ql (U)TraceNormalEast Liverpool City HospitalComment on above:Order Comment: Name Collection Type:: Clean-Voided MidstreamPerformed By: #### UA, CUU #### [facility] [address] [place] [address] USALaboratory - Microbiology and Antimicrobial susceptibility Ordered By: Kassidy Arriaza on 10-18-2024. trachomatis DNA AC+probe Ql (Unsp spec)NegativeNegSelect Medical Specialty Hospital - ColumbusN. gonorrhoeae DNA AC+probe Ql (Unsp spec)NegativeNegSelect Medical Specialty Hospital - ColumbusComment on above:Performed at: = - [facility] [id number] Director: Dagmar Love MD, Phone: [phone] esterase [Presence] in Urine by Test stripOrdered By: Kassidy Arriaza on 10-18-2024 Leukocyte esterase Test strip Ql (U)NegativeNormalUniversity Hospitals Conneaut Medical CenterComment on above:Order Comment: Name Collection Type:: Clean- Voided MidstreamPerformed By: #### UA, CUU #### [facility] [address] [place] [address] USANitrite Test strip Ql (U)Ordered By: Kassidy Arriaza on 27-98-2903Poxsuab Ql (U)NegativeNegSelect Medical Specialty Hospital - ColumbusProtein Test strip (U) [Mass/Vol]Ordered By: Kassidy Arriaza on 12-00-1896Yogkyom (U) [Mass/Vol]NegativeNegWVUMedicine Barnesville Hospitalpecific gravity Test strip (U) [Rel density]Ordered By: Kassidy Arriaza on 71-55-2087Alaazegu gravity (U) [Rel density]1.0071.001-1.030[facility] HospitalUS OB <= 14 weeks fetuson 76-84-9991TT OB <= 14 weeks [facility] [address] [place], [place] [address] Ultrasound Report Signed Patient: Jaz Sanders MR#: [id number] : 1995 Acct:[id number] Age/Sex: 29 / F ADM Date: 10/18/24 Loc: ER Room: Type: [facility] ER Attending Dr: Ordering Provider: Kassidy [...] 10/18/2024 2:21 PM Dictation Location: [place] [address] Tech: Natalie Haji Transcribed By: MAITE 10/18/24 1421 Dictated By: Sravan Dickinson Jr, DO 10/18/24 1419 Signed By: 10/18/24 1421NoAtrium Health Physician GroupUnlisted Lab Teston 10-18-20[address] ProMSt[address] Luke's Hospital SystemUrinalysison 27-73-0074Niwwwlece,UrineNegativeNormal NegativeThe [facility] Hospital Physician GroupComment on above:Order Comment: Name Collection Type:: Clean-Voided MidstreamPerformed By: #### UA, CUU #### [place] [id number] USAGlucose Ql (U)NormalNormalNormBaptist Health Wolfson Children's Hospital Physician GroupComment on above:Order Comment: Name Collection Type:: Clean-Voided MidstreamPerformed By: #### UA, CUU #### [place] [address] USANitrite,UrineNegativeNormalNegativeBroward Health Coral Springs Physician GroupComment on above:Order Comment: Name Collection Type:: Clean-Voided MidstreamPerformed By: #### UA, CUU #### [place] [address] USAOccult Blood,UrineNegativeNormalNegativeThe [facility] Physician GroupComment on above:Order Comment: Name Collection Type:: Clean- Voided MidstreamResult Comment: PERFORMED BY: [place] [address] PATHOLOGIST PLUMBER'S HELPER DAMIÁN DOSHI M.D.Performed By: #### UA, CUU #### [place] [address] USAProtein,UrineNegativeNormalNegativeBroward Health Coral Springs Physician GroupComment on above:Order Comment: Name Collection Type:: Clean-Voided MidstreamPerformed By: #### UA, CUU #### [place] [address] USASpecificy [place],Urine1.182Pimxep1.001-1.030[facility] Physician GroupComment on above:Order Comment: Name Collection Type:: Clean- Voided MidstreamPerformed By: #### UA, CUU #### [place] [address] USAUrobilinogen,UrineNormalNormalNormalThe [facility] Physician GroupComment on above:Order Comment: Name Collection Type:: Clean- Voided MidstreamPerformed By: #### UA, CUU #### [place] [address] USAUrine Cultureon 23-24-9303Kxdwlkpv identified Cx Nom (U) <9,000 colonies/ml mixed bacterial skin contaminants 2 Days PERFORMED BY: [place] [address] PATHOLOGIST PLUMBER'S HELPER DAMIÁN DOSHI M.D.NormalBroward Health Coral Springs Physician GroupComment on above: Performed By: #### CAESAR, CUU #### [facility] [address] [place] [address] USAUrine cultureOrdered By: Kassidy Arriaza on 10-18-2024 Bacteria identified Cx Nom (U)2 DaysMercy Health Allen Hospital Urobilinogen Test strip (U) [Mass/Vol]Ordered By: Kassidy Arriaza on 10-18-2024 Urobilinogen (U) [Mass/Vol]Normal mg/dLNormalMercy Health Allen HospitalpH of Urine by Test stripOrdered By: Kassidy Arriaza on 15-32-9203zQ (U)7.0 [pH] Normal5.0-9.0Mer[facility] Allen HospitalComment on above:Order Comment: Name Collection Type:: Clean-Voided MidstreamPerformed By: #### CAESAR, CUU #### [facility] [address] [place] [address] USAUnlisted Lab Teston 02-39-7795WxsSjbhsz Health SystemBOX TESTon 74-01-6860JFO TEST SENT OUTUNITYNONC CkofqoblwtHDM3ZIALQHPSS Healthcare EZV95-24-04HVBZ HealthcareUNITY BOX CLINISYLONE [facility] HealthcareCoding Summaryon 19-15-3087Vyryip SummaryHTMLBase 64 UgjgzxfvQJq5wAi+PGhlYWQ+DY7FBGBgY32luHUdjJ5dE2DQNRwZSvtlHAWVIElAXlLnqqJpTK2daLYp ZXJu [file] b2x (more content not included)...[facility] CampusCompliance Drug Analysis, [facility] 71-00-2211Bvdpacm LCFINALInvalid Interpretation [facility] HospitalComment on above:Result Comment: TOXASSURE COMP DRUG [...] test is not intended to distinguish between vzssx-2-wefjumkdvvqdzeuvilds, the predominant form of THC in most herbal or marijuana-based products, and ykakc-8-hqvifojysurmhdobkxsd. Lamotrigine PRESENT Acetaminophen PRESENT Test Result Flag Units Ref Range Creatinine 45 mg/dL >=20 Declared Medications: Medication list was not provided. For clinical consultation, please call . ToxAssure, ToxAssure FLEX or MAT drug testin -Technical component - Data analysis performed at [facility], [address] [place] [address]. [phone]. Train Braker César Bains MD. ToxAssure, ToxAssure FLEX or MAT drug testing: -Technical component - Result certification performed at [facility], [address] [place] [address]. [phone] Train Braker César Bains MD. Performed At: [employer] [address] [id number] [facility] Ph:[phone] By: #### [id number] ####[facility] (DEFAULT)[address] [place] [id number] Urineon 09-28-2024 UrineMixed skin, or urogenital damián. Clinically insignificantNormalGalion HospitalComment on above:Performed By: #### [id number] ####[facility] (DEFAULT)[address] [place] [address]653BZxGo Screen LCon 09-27-2024 HBsAg Screen LCNegativeInvalid Interpretation CodeNegativeGalion Hospital Comment on above:Result Comment: Performed At: [place] [id number] [place], [place] [id number] J Luis Gray PhD Ph:[phone] By: #### [id number], 0191875, 2376542, 17736074, 4394948276, 57739539, 3082400704, [id number]####[facility] (DEFAULT)[address] [place] [address]BYS 4th Gen Screen w Reflex LCon 64-71-2227ZDI Scr 4th Gen LCNon-ReactiveInvalid Interpretation Code Non ReactiveGalion HospitalComment on above:Result Comment: HIV-1/HIV-2 antibodies and HIV-1 p24 antigen were NOT detected. There is no laboratory evidence of HIV infection. HIV Negative Performed At: [facility] [address] [place], [place] [id number] J Luis Gray PhD Ph:[phone] By: #### [id number] #### [facility] (DEFAULT) [address] [place] [address]ZKY, Rfx Qn RPR/Confirm TP LCon 45-42-1082IRZ LC Non-ReactiveInvalid Interpretation CodeNon ReactiveMercy Health St. Anne Hospital HospitalComment on above:Performed By: #### [id number], 7900668, 9732030, 22829106, 2065638131, 04105252, 6467646590, 57944736####[facility] (DEFAULT)[address] [place] [address]Ylofgin Antibodies, IgG LCon 59-60-4785Mllnqji Antibodies, IgG LC2.78 indexInvalid Interpretation CodeImmune >0.99[facility] HospitalComment on above:Result Comment: Non-immune <0.90 Equivocal 0.90 - 0.99 Immune >0.99 Performed At: [facility] [address] [place], [place] [id number] J Luis Gray PhD Ph:[phone] By: #### [id number], 2956835, 1043572, 55573080, 8464470532, 99727206, 6238441580, 07437374####[facility] (DEFAULT)[address] [place] [address].Auto Diff 1on 99-18-0657Scbh [place] %6 %Normal1-12[facility] HospitalComment on above:Performed By: #### 92049298, 3342825, 5909470, 56571458, 1790429277, 71598283, 6938256768, 48884902####[facility] (DEFAULT)[address] [place] [address] Baso Abs#0.0 a93Bsjhpn6.0-0.2[facility] HospitalComment on above:Performed By: #### 91311888, 4661857, 4945432, 02231969, 6914556020, 48490521, 7143088475, 82702651####[facility] (DEFAULT)[address] [place] [address] Basophils/100 WBC (Bld)0.1 %Low0.2-2.0[facility] HospitalComment on above: Performed By: #### 15148479, 1308883, 9365141, 19528596, 9429363447, 09887210, 5590924240, 41931080####[facility] (DEFAULT)[address] [place] [address] 536[address]Dpm Abs#0.2 m71Ewwbkj9.0-0.4[facility] HospitalComment on above: Performed By: #### 17846121, 3532804, 7527628, 89644568, 0742492178, 38669221, 2749395239, 95676074####[facility] (DEFAULT)[address] [place] [address] 79473Gzqxlaklzpl/100 WBC (Bld)2.0 %Normal0.9-4.0[facility] Hospital Comment on above:Performed By: #### 98232268, 8964161, 2592742, 63097084, 9769737973, 60652288, 2051122384, 74932042####[facility] (DEFAULT)[address] [place] [address] 87132Fbcfm Abs#2.0 y00Miapwd7.3-2.9[facility] hospital HospitalComment on above:Performed By: #### 59843453, 7430774, 7995927, 79078874, 1998506766, 13875668, 2550133413, 20227645####[facility] (DEFAULT)[address] [place] [address] 39659Uhopvgsszpn/100 WBC (Bld)26 % Bcqnwr17-92Kzrvgayb HospitalComment on above:Performed By: #### 99308073, 0701842, 0094292, 03781400, 5453920975, 53944716, 6350536180, 69081114 ####[facility] (DEFAULT)[address] [place] [address] 57439Hxkc Abs# 0.5 r95Iqbwob0.0-0.8Galion HospitalComment on above:Performed By: #### 78190745, 3353215, 7906785, 18051208, 9287592589, 96870422, 2185270400, 57278136 ####[facility] (DEFAULT)[address] [place] [address] 62405Txbd Abs# 5.1 b16Vsezse6.5-9.2[facility] HospitalComment on above:Performed By: #### 19067784, 4032267, 0720196, 32551831, 2298148544, 23041162, 2474062654, 29131471 ####[facility] (DEFAULT)[address] [place] [address]28 Neutrophils/100 WBC (Bld)66 %Wxghha95-90Kkucscdo HospitalComment on above: Performed By: #### 75344961, 9127795, 6106243, 18243136, 2931032795, 95716053, 0778787917, 44554866####[facility] (DEFAULT)[address] [place] [address] 84792DAUFakq 36-86-5892PYG and Rh group Nom (Bld)Hx Check: Not Found Anti-A: 4+ Anti-B: 0 Anti-D: 2+ DCon: NT A1: 0 B: 2+ ABORh Interp: A POSInvalid Interpretation [facility] HospitalComment on above: Performed By: #### 15510244, 5255593, 7565148, 55242208, 8293161125, 21397369, 3793495670, 27613903####[facility] (DEFAULT)[address] [place] [address] 085[address]CLWH Gelon 81-78-5564HMZT GelNegativeSt. [facility] Campus Comment on above:Performed By: #### 74953675, 4238197, 4926238, 74364123, 6438392917, 62170749, 3217279651, 45914542####[facility] (DEFAULT)[address] [place] [address] 76835IQA w/ Auto Diffon 66-81-2465Umyvuzmyobp distribution width (RBC) [Ratio]13.2 %Lvbwkb72.5-15.0Galion HospitalComment on above:Performed By: #### 18916076, 8901775, 8032867, 48453120, 1446012989, 68723152, 1594584374, 22249209#### [facility] (DEFAULT) [address] [place] [address] 60005Bcwxhrblfm (Bld) [Volume fraction]39.9 %Khcjuu73.7-40.4 Gal[facility] HospitalComment on above:Performed By: #### 42170415, 7734063, 6136650, 51550302, 9290118608, 59717335, 5295264761, 74474641#### [facility] (DEFAULT) [address] [place] [address] 85396Wcoxzvjymj (Bld) [Mass/Vol]13.9 g/zFFeunfu25.3-15.9 Gal[facility] HospitalComment on above:Performed By: #### 58703906, 3943262, 0560666, 55462295, 2556422779, 80743080, 3821829791, 22107518#### [facility] (DEFAULT) [address] [place] [address] 23575Tvf Diff?AutoInvalid Interpretation [facility] Comment on above:Performed By: #### 10541286, 0275021, 6677930, 92088060, 9662608192, 14330408, 5739560112, 72448068#### [facility] (DEFAULT) [address] [place] [address] 28308SWT (RBC) [Entitic mass]29 hbEcwmvk96-89Vibliqaz Hospital Comment on above:Performed By: #### 77064304, 7717933, 3343771, 24139321, 6965216350, 78798074, 6987807547, 50421188#### [facility] (DEFAULT) [address] [place] [address] 42370QUMZ (RBC) [Mass/Vol]35 g/sUIfmblz07-17Rhjbzdgj Hospital Comment on above:Performed By: #### 67228990, 0902421, 4821630, 58524078, 6530538719, 90892605, 2524155914, 89695093#### [facility] (DEFAULT) [address] [place] [address] 06462VTI (RBC) [Entitic vol]84 iGGrhtjt31-111Nlpiuyzv Hospital Comment on above:Performed By: #### 13475338, 8100353, 4457086, 61973586, 2414495864, 53552522, 3002644191, 68233839#### [facility] (DEFAULT) [address] [place] [address] 60211Zwefqjtt941 s86Mxnyip905-642Ayqoynoo HospitalComment on above:Performed By: #### 78433845, 7595667, 0127504, 23908419, 1982876540, 58448357, 0713959897, 07930699#### [facility] (DEFAULT) [address] [place] [address] 05980Embapfwo mean volume (Bld) [Entitic vol]6.3 fLNormal 6.3-10.2MUniversity Hospitals TriPoint Medical CenterComment on above:Performed By: #### 83070218, 4683027, 1870299, 15609768, 7181088004, 23716084, 9117618719, 65516384#### [facility] (DEFAULT) [address] [place] [address] 15815FKH7.76 n33Yxuidb8.70-5.30[facility] HospitalComment on above:Performed By: #### 29876145, 3568371, 1313120, 86456502, 9570181135, 10586956, 4755563895, 69812625#### [facility] (DEFAULT) [address] [place] [address] 88475GTW0.8 v04Odcbnk6.5-10.5Galion HospitalComment on above: Performed By: #### 60746306, 6882933, 5540580, 20908545, 8065968281, 73816145, 2060645441, 06988296#### [facility] (DEFAULT) [address] [place] [address] 67358RSR surface Ag IA on 35-04-8357Fsdbxglpz B Surface AntigenNegativeGrand Lake Joint Township District Memorial HospitalHIV 1+2 Ab+HIV1 p24 Ag IA Qlon 09-26-2024 HIV 1&2 AB/AGNon-ReactiveGrand Lake Joint Township District Memorial HospitalHgbA1c Standardon 09-26-2024.Hb 13.1Invalid Interpretation [facility] HospitalComment on above:Performed By: #### 00113998, 0202479, 6545018, 07311259, 0320377121, 21396848, 5090821948, 35717648####[facility] (DEFAULT)[address] [place] [address] .Hgb A1c0.38 g/dLInvalid Interpretation [facility] HospitalComment on above: Performed By: #### 96338708, 4108780, 7323592, 56802953, 7694927652, 27344633, 6219873673, 63714701####[facility] (DEFAULT)[address] [place] [address] 46603Tgbloqk [Mass/Vol]91 mg/dLInvalid Interpretation [facility] HospitalComment on above:Performed By: #### 43665121, 0014835, 2024382, 45593802, 8840908974, 95079751, 7009998635, 04510365####[facility] (DEFAULT)[address] [place] [address] 77329WeD1f (Bld) [Mass fraction]4.8 % 4.0 - 6.0 %Galion HospitalComment on above:Performed By: #### 35652803, 7108829, 7383514, 01826974, 7883194673, 23309007, 8500105377, 61923792 ####[facility] (DEFAULT)[address] [place], [place] [address]Px Panel Informationon 37-77-8235ZptMtcgxr 48domain SystemProvider Orderson 09-26-2024 Provider [id number]#1.00OTGTIFFSt. Mary's Medical Center, Ironton CampusRubella IGG immune statuson 27-45-6719Avnfozx immune IgG2.78ProAdena Pike Medical Center SystemT. pallidum IgG+IgM IA Ql (S)on 51-60-2841MttavelcEgd-Reactive ProMSt. Luke's Hospital SystemType and screenon 26-52-8107Ary/Rh(D)PositiveProWalker [facility] Center Tributes.comUltrasound - Officeon 82-21-4449KkxApoico Health SystemHCG ( test) Ql (U)on 64-96-9680Hrtpgsxhirpolr and review of laboratory resultsAbnormalNOMS HealthcarePreg Test, UrPositiveNegativeNOMS HealthcareNOMS HealthcareUS OB TRANSVAGINALon 61-90-4898WL OB TRANSVAGINALEXAM: US OB TRANSVAGINAL HISTORY: Dating, [...] II, MD, PHD at 21-Sep-2024 08:26:46 AM [facility] TeleradiologyNormalNot AvailableComment on above:Order Comment: US OB TRANSVAGINAL No LMP recorded.Urinalysis macro (dipstick) panel (U)on 43-49-6274Wnwvdnzhg, UA NegativeNegative - 4(70) +++ mg/dLNOMS HealthcareBlood, [...] HealthcareUrobilinogen, UA0.20.2 - 12 mg/dLNOMS HealthcareNOMS HealthcareCNNURSEon 22-09-1804BMOOCHN Nurse Visit (SHERLEYIAV) JAZ SANDERS ([id number]) 1995 F Date Time Provider Department 09/03/24 10:[address] REJ TORREYV During your visit today, we recorded the following information about you: Manisha Weaver APRN.SUPERVISOR POLE YARD 09/03/2024 5:42 PM Signed Jaz Sanders here [...] 2024 5:39 PM Referring Provider: MELODIE HERNANDEZ [[id number]] Allergies As of Date: 09/03/2024 (Not on File) Date Reviewed: 08/20/2024 Reviewed by: Melodie Hernandez APRN.CNP - Fully Assessed Visit Diagnosis:Early stage of (HCC) [Z34.90] Order(s):OBSTETRIC ULTRASOUND [facility] [[id number]] Order #: [id number]. #:[id number]: 1 Prescriptions as of 09/03/2024 - buPROPion [...] (None) Encounter Status:Closed by BRADFORD DOSS on 09/03/24[facility] Daytonamination level ultrasoundon 09-03-2024 Indication Viability, Repeat Impression - Single, live, intrauterine . - An intrauterine gestational sac with a yolk sac and pole is present. - [place] rump length measurement is consistent with the [...] Lt ovary: Visualized Performed By: Nina Farnsworth; [facility] Read By: Bradford Doss M.D.MATERNAL MEDICINEGalion HospitalRadiology Study observation (narrative)Galion HospitalCNNURSEon 92-76-8920PCLJIHQEvpju Visit (REIBD) JAZ SANDERS ([id number]) 1995 F Date Time Provider Department 08/28/24 11:10 AM US TECH 2 [facility] BEAC REIBD During your visit today, we recorded the following information about you: Melodie Hernandez, ORACLE OBIEE DEVELOPER.SUPERVISOR POLE YARD 08/30/2024 4:36 PM Signed Jaz Sanders is [...] scan next week as scheduled Melodie Hernandez APRN.SUPERVISOR POLE YARD Mikey Torres MD 08/30/2024 4:36 PM Signed Viable ratliff IUP Size equal Date. Plan: patient to follow up with her ob for care. Stacy Banuelos MD Referring Provider: MELODIE HERNANDEZ [[id number]] Allergies As of Date: 08/28/2024 (Not on File) Date Reviewed: 08/20/2024 Reviewed by: Melodie Hernandez APRN.SUPERVISOR POLE YARD - Fully Assessed Visit Diagnosis: resulting from assisted reproductive technology in first trimester ([facility]) [O09.811] Order(s):OBSTETRIC ULTRASOUND [facility] [[id number]] Order #: [id number]. #:[id number]: 1 Prescriptions as of 08/30/2024 - buPROPion [...] (None) Encounter Status:Closed by MIKEY HENLEY on 08/30/24[facility] 08-28-2024 Indication Viability Impression - Single, live, intrauterine . - An intrauterine gestational sac with a yolk sac and embryo is present. - [place] rump length measurement is consistent with the [...] Chavez RDMS Read By: Mikey Torres M.D.MATERNAL MEDICINEGalion Hospital Radiology Study observation (narrative)Galion HospitalCNPNon 27-48-0451FHCR Telephone (REIBD) JAZ SANDERS ([id number]) 1995 F Date Time Provider Department 08/24/24 [...] Date Reviewed: 08/20/2024 Reviewed by: Melodie Hernandez, MELY.SUPERVISOR POLE YARD - Fully Assessed Reason for Visit: Patient [...] (None) Encounter Status:Closed by ARMINDA WARD on 08/24/24[facility] Hospital[facility]isha 09-85-7895KWYIMtlyzmtwv (REIBD) JAZ SANDERS ([id number]) 1995 F Date Time Provider Department 08/23/24 MELODIE HERNANDEZ During your visit today, we recorded the following information about you: Angella Mccarthy 08/23/2024 10:39 AM Signed Name: Jaz Sanders called today. : 1995 (home) [phone] (cell) Reason for call: pt called today informing the nurse she has been experiencing pain of level 4 from 1-10. Pt has been experiencing pain for 2 day. 5 weeks today. The patients preferred pharmacy has been captured for this encounter? Angella Morillo Vehicle Check In Clerk David, Melodie Keene APRN.CNP 08/24/2024 5:58 PM [...] slot. Call to patient needed: no Morillo Vehicle Check In Clerk, Lana 08/25/2024 8:37 AM Signed Pt is scheduled on 09/03/2024. Melodie Hernandez APRN.CNP 08/27/2024 11:51 AM Signed Addended by: MELODIE HERNANDEZ on: 08/27/2024 11:51 AM Modules accepted: Orders Allergies As of Date: 08/23/2024 (Not on File) Date Reviewed: 08/20/2024 Reviewed by: Melodie Hernandez APRN.CNP - Fully Assessed Reason for Visit: Pain [78] Primary Visit Diagnosis:Early stage of (HCC) [Z34.90] Order(s):OBSTETRIC ULTRASOUND [facility] [[id number]] Order #: [id number]: 1 FUTURE Prescriptions as of 08/27/2024 - [...] (None) Encounter Status:Closed by MELODIE HERNANDEZ on 08/24/24[facility] Summaryon 75-21-7780Aurtip SummaryMLBase 64 AfyxzpooPMg8mCn+PGhlYWQ+OM6JDDMcB80hhWViaV6xA4IMIFaTIigjZRHHEPcKMiMcxwUxFJ2ajJNh ZXJu [file] b2x (more content not included)...[facility] HospitalCoding Summaryon 44-08-3994Ywlqsk SummaryHTMLBase 64 ImgfiruhJJc5wJl+PGhlYWQ+QE4HEMZcF04cyQAlrT8uI3ZGJCyOMdpjMWDCHLjLCdSvfgHqXH6xtTWm ZXJu [file] b2x (more content not included)...NormalMer[facility] HospitalCoding SummaryMLBase 64 IumuouhpGUp4cLa+PGhlYWQ+HU4FAFFvH51jnSCcmH5hN3EGTOdZDzkwYJWVKVrINtQhnwMkKV2ctOBe ZXJu [file] b2x (more content not included)...[facility] HospitalProvider Ord[place] 63-30-7166Whutxxzc [id number]#1.00OTGTIFF St[facility] CampushCG Quantitativeon 65-97-8564qBW Odhzyllsplfj966.7 mIU/mL High0.0-0.6MUniversity Hospitals TriPoint Medical CenterComment on above:Result Comment: Post-Menopausal Reference Range is: 0.1-11.6 mIU/mLPerformed By: #### [id number] #### [facility] (DEFAULT) [address] [place] [address] 60569WUYQta 62-57-0567OJYITafocxsyp (REIBD) JAZ SANDERS ([id number]) 1995 F Date Time Provider Department 08/16/24 MELODIE HERNANDEZ During your visit today, we recorded the following information about you: Angella Mccarthy 08/16/2024 12:31 PM Signed Name: Jaz Lynda called today. : 1995 (home) [phone] (cell) Reason for call: pt called that she got positive test, she has been having having cramping since last night , it happens every hours for couple minutes. The patients preferred pharmacy has been captured for this encounter? yes Angella Morillo Vehicle Check In Clerk Daniel Hanna APRN.CNP 08/16/2024 5:28 PM Signed Called patient back to phone number listed in [facility]-no answer. Lm for patient to look out for [employer] message. Daniel Hanna APRN.JARROD August 16, 2024 [...] by DANIEL HANNA on 08/16/24[facility] Charles HospitalSabra 78-90-5611GXMFUuefxxppz (REIBD) JAZ SANDERS ([id number]) 1995 F Date Time Provider Department 08/15/24 [...] Date Reviewed: 05/09/2024 Reviewed by: Melodie Hernandez, ORACLE OBIEE DEVELOPER.SUPERVISOR POLE YARD - Fully Assessed Reason for Visit: Patient [...] Of Date: 08/15/2024 (None) Encounter Status:Closed by EMLODIE HERNANDEZ on 08/15/24[facility] SouthProvider Orderson 98-07-4926Hgbxieuc Orders [id number]#1.00OTGTSamaritan HospitalhCG Quantitativeon 16-24-7737wAP Wzlsxtoynajj324.6 mIU/mLHigh0.0-0.6MUniversity Hospitals TriPoint Medical CenterComment on above:Result Comment: Post-Menopausal Reference Range is: 0.1-11.6 mIU/mLPerformed By: #### [id number] #### [facility] (DEFAULT) [address] [place] [address] [id number] 84-13-8455NVFIQieunaccw (REIBD) JAZ SANDERS ([id number]) 1995 F Date Time Provider Department 08/13/24 MELODIE HERNANDEZ During your visit today, we recorded the following information about you: Arminda Ward RN 08/13/2024 11:19 AM Signed Letters sent. sent to patient Arminda Ward RN August 13, 2024 11:19 AM Allergies As of Date: 08/13/2024 (Not on File) Date Reviewed: 05/09/2024 Reviewed by: Melodie Hernandez, ORACLE OBIEE DEVELOPER.SUPERVISOR POLE YARD - Fully Assessed Reason for Visit: Wants hcg levels sent to [facility] / lives far away [Other] Prescriptions [...] Text Encounter Status:Closed by ARMINDA WARD on 08/13/24[facility] SouthProvider [place] 93-35-7043Wsppzcrq Orders [id number]#1.00OTOhioHealth Riverside Methodist HospitalhCG Quantitativeon 97-99-3274mLM Czglapzrwiza17.6 mIU/mLBraxton County Memorial Hospital0.0-0.6MUniversity Hospitals TriPoint Medical Center Comment on above:Result Comment: Post-Menopausal Reference Range is: 0.1-11.6 mIU/mLPerformed By: #### [id number] #### [facility] (DEFAULT) [address] [place] [address] [id number] 32-85-7055XSIETupnez Visit (REIBD) JAZ SANDERS ([id number]) 1995 F Date Time Provider Department 07/31/24 3:00 PM MELODIE HERNANDEZ REARLET During your visit today, we recorded the following information about you: Last Period 07/19/24 Mustapha Tello MA 07/31/2024 3:12 PM Addendum Patient verified by full name and date of . Jaz Sanders is here today for an IUI. LMP: 07/19/2024 Natural cycle IUI Timed With: Ovulation Predictor Kit , Date: 07/30/2024 Paper Baler offered: Patient declines Mustapha Tello MA July 31, 2024 3:12 PM Dominguez Barry 09/05/2024 10:45 PM Signed IUI specimen released to provider Dominguez Barry July 31, 2024 3:24 PM Dominguez Barry 09/05/2024 10:45 PM Signed IUI Cryobio Donor # [id number] Pre: frozen washed specimen Post: 82 M/ml, [...] 3. Cycle Day: Last menstrual period: 07/19/2024 [place] Protocol: UNIVERSAL PROTOCOL / SAFETY CHECKLIST Procedure [...] Status:Closed by MELODIE HERNANDEZ on 09/05/24[facility] Charles HospitalOVOffice Visit (ANDRBE) JAZ SANDERS ([id number]) 1995 F Date Time Provider Department 07/31/24 2:30 PM [facility]OLOGY DROP [facility] During your visit today, we recorded the following information about you: Dominguez Barry 07/31/2024 3:26 PM Signed Thaw for IUI. Dominguez Barry Referring Provider: SELF [[id number]] Allergies As of Date: 07/31/2024 (Not on File) Date Reviewed: 05/09/2024 Reviewed by: Melodie Hernandez, ORACLE OBIEE DEVELOPER.SUPERVISOR POLE YARD - Fully Assessed Primary Visit Diagnosis:Procreative management [...] (None) Encounter Status:Closed by DOMINGUEZ BARRY on 07/31/24[facility] SouthCNPNon 55-52-0335SYDRLnmpqunkp (REIBD) JAZ SANDERS ([id number]) 1995 F Date Time Provider Department 07/30/24 MELODIE HERNANDEZ During your visit today, we recorded the following information about you: Sathyamanisha Manisha 07/30/2024 3:16 PM Signed N- ivf Pt has questions regarding IUI Melodie Hernandez APRN.CNP 07/30/2024 6:00 PM Signed patient's OPK today was dark but not positive Plan: test again tomorrow. 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, schedule IUI the same day Melodie Hernandez APRN.CNP July 30, 2024 6:00 PM Allergies As of Date: 07/30/2024 (Not on File) Date Reviewed: 05/09/2024 Reviewed by: Melodie Hernandez APRN.CNP - Fully Assessed Reason for Visit: Patient Question [[id number]] Prescriptions as of 07/30/2024 - naltrexone 50 [...] (None) Encounter Status:Closed by MELODIE HERNANDEZ on 07/30/24[facility] Generalmanisha 67-91-8428NIXAUyopvj Visit (REIBD) JAZ SANDERS ([id number]) 1995 F Date Time Provider Department 07/07/24 [...] Cycle Day: 14 Last menstrual period: 06/24/2024 [place] Protocol: UNIVERSAL PROTOCOL / SAFETY CHECKLIST Procedure [...] Gonzalez 07/19/2024 7:50 AM Signed IUI Cryobio #[id number] Washed frozen specimen Post: 31 m/ml, 77% Insem#: 10.8 million Referring Provider: DANIEL HANNA [[id number]] Allergies As of Date: 07/07/2024 (Not on File) Date Reviewed: 05/09/2024 Reviewed by: Melodie Hernandez APRN.SUPERVISOR POLE YARD - Fully Assessed Primary Visit Diagnosis:Encounter for [...] (None) Encounter Status:Closed by MIKEY HENLEY on 07/19/24[facility] Centerice [facility] (ANDRBE) JAZ SANDERS ([id number]) 1995 F Date Time Provider Department 07/07/24 9:30 AM [facility] During your visit today, we recorded the following information about you: Nichelle Gonzalez 07/07/2024 9:41 AM Signed Thaw for IUI Nichelle Gonzalez Referring Provider: DANIEL HANNA [[id number]] Allergies As of Date: 07/07/2024 (Not on File) Date Reviewed: 05/09/2024 Reviewed by: Melodie Hernandez APRN.SUPERVISOR POLE YARD - Fully Assessed Primary Visit Diagnosis:Procreative management [...] (None) Encounter Status:Closed by NICHELLE GONZALEZ on 07/07/24[facility] Charles HospitalSabra 59-12-3723FCQZCogisficx (REIBD) JAZ SANDERS ([id number]) 1995 F Date Time Provider Department 07/06/24 [...] Date Reviewed: 05/09/2024 Reviewed by: Melodie Hernandez APRN.SUPERVISOR POLE YARD - Fully Assessed Reason for Visit: Patient [...] (None) Encounter Status:Closed by BECKI ISAACS on 07/06/24[facility] SouthXavier 64-72-3887ZAVRVfbyehlzd (REIBD) JAZ SANDERS ([id number]) 1995 F Date Time Provider Department 07/05/24 [...] Date Reviewed: 05/09/2024 Reviewed by: Melodie Hernandez APRN.SUPERVISOR POLE YARD - Fully Assessed Reason for Visit: re [...] (None) Encounter Status:Closed by ARMINDA WARD on 07/06/24[facility]Select [facility] 67-92-2648HQPJSwuxyrrdk (REIBD) JAZ SANDERS ([id number]) 1995 F Date Time Provider Department 07/04/24 [...] Signed Ignacio Guy MD to Jamel Skylar [place] 07/05/24 9:05 AM Cervicalpolyp does not need to be removed. She will [facility]ound guidance for her next IUI. Dr. [...] (None) Encounter Status:Closed by MELODIE HERNANDEZ on 07/04/24[facility] Indication infertility testing Impression Normal [...] Aceves RDMS Read By: Ignacio Guy M.D.MATERNAL MEDICINEGalion HospitalRadiology Study observation (narrative)Galion HospitalCNPNon 53-63-3311PQTVBkjwzpmdh (REIBD) JAZ SANDERS ([id number]) 1995 F Date Time Provider Department 06/29/24 MELODIE HERNANDEZ During your visit today, we recorded the following information about you: Lupillo Meeyrra 06/29/2024 8:53 AM Signed Pt had iui 06/09, pt isnt . Please follow up Cd1 06/23 . Pt had hematoma after iui Patricia Snow 07/02/2024 9:18 AM Signed Pt wants to know if she has to have us before iui this weekend Melodie Hernandez APRN.SUPERVISOR POLE YARD 07/03/2024 12:34 PM Signed unable to reach, left message to return my call Melodie Hernandez APRN.SUPERVISOR POLE YARD July 03, 2024 12:33 PM Patricia Snow 08/13/2024 8:52 AM Signed Pos preg test Arminda Ward RN 08/13/2024 9:17 AM Signed See TE encounter dated 08/13 Arminda Ward RN August 13, 2024 9:16 AM Allergies As of Date: 06/29/2024 (Not on File) Date Reviewed: 05/09/2024 Reviewed by: Melodie Hernandez APRN.SUPERVISOR POLE YARD - Fully Assessed Reason for Visit: 06/09 [...] (None) Encounter Status:Closed by ARMINDA WARD on 08/13/24[facility] 73-83-8569HNPKAsoyxr Visit (REIBD) JAZ SANDERS ([id number]) 1995 F Date Time Provider Department 06/09/24 11:00 AM IGNACIO GUY During your visit today, we recorded the following information about you: Nichelle Gonzalez 06/09/2024 12:30 PM Signed IUI specimen released to provider Nichelle Gonzalez June 09, 2024 11:24 AM Nichelle Gonzalez 06/09/2024 12:30 PM Signed IUI Cryobio #: [id number] Washed frozen sample Post: 42 m/ml, 74% [...] Cycle Day: 13 Last menstrual period: 05/28/2024 [place] Protocol: UNIVERSAL PROTOCOL / SAFETY CHECKLIST Procedure [...] was discussed with the patient or authorized specialty sales representative. The patient or authorized specialty sales representative has agreed to proceed with the sensitive examination. (Sensitive examination includes inspection and/or palpation of the breasts, pelvis, prostate and anorectal regions) Patient declined press tender incendiary grenade. Vidhi Sheldon MD IUI IUI Date: 06/09/24 [...] get pelivc scan here at [facility] if not with this IUI prior pt proceeding with another attmept at IUI. Ignacio Guy MD June 09, 2024 12:30 PM SIGNATURE: Vidhi Sheldon MD PATIENT NAME: Jaz Sanders DATE: June 09, 2024 TIME: 12:01 PM Referring Provider: DANIEL HANNA [[id number]] Allergies As of Date: 06/09/2024 (Not on File) Date Reviewed: 05/09/2024 Reviewed by: Melodie Hernandez APRN.SUPERVISOR POLE YARD - Fully Assessed Primary Visit Diagnosis:Female infertility [...] (None) Encounter Status:Closed by IGNACIO GUY on 06/09/24[facility] Visit (ANDRBE) JAZ SANDERS ([id number]) 1995 F Date Time Provider Department 06/09/24 10:30 AM [facility]OLOGY DROP [facility] During your visit today, we recorded the following information about you: Nichelle Gonzalez 06/09/2024 11:48 AM Signed Thaw for IUI Nichelle Gonzalez Referring Provider: DANIEL HANNA [[id number]] Allergies As of Date: 06/09/2024 (Not on File) Date Reviewed: 05/09/2024 Reviewed by: Melodie Hernandez APRN.SUPERVISOR POLE YARD - Fully Assessed Primary Visit Diagnosis:Procreative management [...] (None) Encounter Status:Closed by NICHELLE GONZALEZ on 06/09/24[facility] Summaryon 98-22-7216Vqczcg SummaryAMERICAN FORK HOSPITALBase 64 HkamkricIIb5rSa+PGhlYWQ+QT9WHBKrC07eoCKovR7jE5WMSKcJApipERWTBYaNGsIejhEwJF1caQYq ZXJu [file] b2x (more content not included)...[facility] CampusProgesterone LCon 53-41-5185Whuyobnujgup LC7.6 ng/mLInvalid Interpretation [facility] Comment on above:Result Comment: Follicular phase 0.1 - 0.9 Luteal phase 1.8 - 23.9 Ovulation phase 0.1 - 12.0 First trimester 11.0 - 44.3 Second trimester 25.4 - 83.3 Third trimester 58.7 - 214.0 Postmenopausal 0.0 - 0.1 Performed At: [facility] [address] [place], [place] [id number] J Luis Gray PhD Ph:[phone] By: #### [id number] ####[facility] (DEFAULT)[address] [place] [address] 62363Bsixbdkc Orderson 75-19-3743Gppvbyks [id number]#1.00OTMansfield HospitalPhysical Therapy Noteon 44-03-3114Woadttat Therapy Note [id number]#1.00OTOhioHealth Riverside Methodist Hospital 25([place])D3 [facility] Phoenixon 593228-efxedkacjspour D3 [Mass/Vol]28.8 ng/mLLow 31.0-80.0Av HospitalComment on above:Order Comment: Specimen Type: BLOOD SPECIMEN Ordering Facility: [facility] Address: [address] [place], [place] [address]Result Comment: Classification of 25 [place] Vitamin D status: Deficiency/Insufficiency: < or = 30 ng/ml. Sufficiency/Optimal Levels: 31-80 ng/mL Toxicity: > 100 ng/mL. Test performed by chemiluminescent immunoassay.Performed By: #### 73878-8 #### [facility] CLIA [id number] [address] [place] [address] [place] [facility] MEM[facility]IAL HOSPITALC. trachomatis+N. gonorrhoeae DNA AC+probe Ql (Unsp spec)on 04-02-2024. trachomatis rRNA AC+probe Ql (Unsp spec)Not detectedNormalNot detectedAv HospitalComment on above:Order Comment: Specimen Type: BLOOD SPECIMEN Ordering Facility: [facility] Address: [address] [place], [place] [address]Performed By: #### 43183-5 #### [facility] CLIA [id number] [address] [place] [address] [place]. gonorrhoeae rRNA AC+probe Ql (Unsp spec)Not detectedNormalNot detectedAv HospitalComment on above:Order Comment: Specimen Type: BLOOD SPECIMEN Ordering Facility: [facility] Address: [address] [place], [place] [address]Performed By: #### 22073-5 #### [facility] CLIA [id number] [address] [place] [address] [place] AMERICACARRIER SCREEN, EXPANDEDon 77-53-4733MBCMUDN SCREEN RESULTSView results in Scanned Documents link when available.NormalAv HospitalComment on above:Order Comment: Specimen Type: BLOOD SPECIMEN Ordering Facility: [facility] Address: [address] [place], [place] [address]Performed By: #### 17002-5 #### [facility] CLIA [id number] [address] [place] [address] [place] AMERICACMV IgG Qnon 03-06-7058JDQ IGG QUALNegativeNormalNegativeAv HospitalComment on above:Order Comment: Specimen Type: BLOOD SPECIMEN Ordering Facility: [facility] Address: [address] [place], [place] [address]Result Comment: No serological evidence of past exposure to Cytomegalovirus. Cannot exclude recent infection if the specimen collected within 4-6 weeks after infection.Performed By: #### 1989-3RIO, 7852-7, 7853-5, VZVG2 #### [facility] CLIA [id number] [address] [place] [address] [place] AMERICACMV IgG SerPl-aCncon 95-22-6743EAG IgG Qn<0.20NormalAvon HospitalComment on above:Order Comment: Specimen Type: BLOOD SPECIMEN Ordering Facility: [facility] Address: [address] [place], [place] [address]Result Comment: The magnitude of the measured result is not indicative of the amount of antibody present. U/mL values are interpreted as follows: Negative <0.6 Equivocal 0.6 to <0.70 Positive >=0.70Performed By: #### 1989-3RIO, 7852-7, 7853-5, VZVG2 #### [facility] CLIA [id number] [address] [place] [address] [place] AMERICACMV IgM Qnon 41-60-2730PZG IGM, QUALNegativeNormalNegativeAvon HospitalComment on above:Order Comment: Specimen Type: BLOOD SPECIMEN Ordering Facility: [facility] Address: [address] [place], [place] [address]Result Comment: No serological evidence of recent exposure to Cytomegalovirus.Performed By: #### 1989-3, RUBIGG, 7852-7, 7853-5, VZVG2 #### [facility] CLIA [id number] [address] [place] [address] [place] AMERICAHBV core Ab Ser Qlon 11-00-9987ZVG core Ab Ql (S)NegativeNormalNegativeAvon HospitalComment on above: Order Comment: Specimen Type: BLOOD SPECIMEN Ordering Facility: [facility] Address: [address] [place], [place] [address]Result Comment: No evidence of current or past infection with Hepatitis B virus. Should recent infection be suspected, repeat testing may be considered 3-4 weeks after this draw.Performed By: #### 92201-5, 5195-3, 52392-2, 98751-9 #### [facility] CLIA [id number] [address] [place] [address] [place] AMERICAHBV surface Ag Ser Qlon 04-59-3867FRW surface Ag Ql (S)NegativeNormalNegativeAvon HospitalComment on above:Order Comment: Specimen Type: BLOOD SPECIMEN Ordering Facility: [facility] Address: [address] [place], [place] [address]Performed By: #### 07356-5, 5195-3, 92043-7, 92731-9 #### [facility] CLIA [id number] [address] [place] [address] [place] AMERICAHCV Ab Ser Qlon 04-02-2024 HCV Ab Ql (S)NegativeNormalNegativeAvon HospitalComment on above:Order Comment: Specimen Type: BLOOD SPECIMEN Ordering Facility: [facility] Address: [address] [place], [place] [address]Result Comment: The result suggests no evidence of active infection with Hepatitis C virus. Should recent infection be suspected, repeat testing may be considered 4-6 weeks after this draw. Performed By: #### 99271-4 #### [facility] CLIA [id number] [address] [place] [address] [place] AMERICAHIV 1+2 Ab IA Qlon 08-94-9409ILV 1 and 2 Ab IA.rapid Nom (S/P/Bld)NormalMountain View HospitalComment on above:Order Comment: Specimen Type: BLOOD SPECIMEN Ordering Facility: [facility] Address: [address] [place], [place] [address]Result Comment: Test not indicated. Performed By: #### 56512-4, 5195-3, 37947-4, 63334-1 #### [facility] CLIA [id number] [address] [place] [address] STATES OF AMERICAHIV 1+2 Ab+HIV1 p24 Ag IA Ql Non-ReactiveNormalNonreactiveMountain View HospitalComment on above:Order Comment: Specimen Type: BLOOD SPECIMEN Ordering Facility: [facility] Address: [address] [place], [place] [address]Performed By: #### 78122-4, 5195-3, 85891-2, 66737-3 #### [facility] CLIA [id number] [address] [place] [address] STATES OF AMERICAHIV immunoassay testing algorithm interpretation (S/P/Bld) [Interp]Good Samaritan HospitalComment on above: Order Comment: Specimen Type: BLOOD SPECIMEN Ordering Facility: [facility] Address: [address] [place], [place] [address]Result Comment: No evidence of HIV- 1 or HIV-2 infection. Should recent infection be suspected, repeat testing may be considered 2-3 weeks after this draw. Harlan Rev. Code 3701.243(E): This information has been [...] HIV test results or diagnoses.Performed By: #### 62857-4, 5195-3, 11839-1, 71391-7 #### [facility] CLIA [id number] [address] [place] [address] [place] OEPBHPQZmA7r (Bld)on 04-02-2024 Average glucose Estimated from glycated hemoglobin (Bld) [Mass/Vol]85 mg/dL NormalAv HospitalComment on above:Order Comment: Specimen Type: BLOOD SPECIMEN Ordering Facility: [facility] Address: [address] [place], [place] [address]Result Comment: eAG: (Estimated average glucose) is a calculated value from HgbA1c and is specialty sales representative of the average blood glucose level in the last 2-3 month period.Performed By: #### 07886-1 #### [facility] CLIA [id number] [address] [place] [address] [place] FNXEXDLSpY4d (Bld) [Mass fraction] 4.6 %Normal4.3-5.6Avon HospitalComment on above:Order Comment: Specimen Type: BLOOD SPECIMEN Ordering Facility: [facility] Address: [address] [place], [place] [address]Result Comment: [place] [employer] guidelines indicate that patients with HgbA1c in the range 5.7-6.4% are at increased risk for development of diabetes, and intervention by lifestyle modification may be beneficial. HgbA1c greater or equal to 6.5% is considered diagnostic of diabetes.Performed By: #### 72377-7 #### [facility] CLIA [id number] [address] [place], [place] [address] [place] AMERICARUBELLA IGG ANTIBODYon 69-02-6712MXZBSNV IGG AB, QUALPositiveNormalPositiveAv HospitalComment on above:Order Comment: Specimen Type: BLOOD SPECIMEN Ordering Facility: [facility] Address: [address] [place], [place] [address]Result Comment: The result suggests recent or past exposure to Rubella virus or history of Rubella vaccination. Positive result may also be seen due to presence of passively-transferred antibodies. Please correlate with patient's history.Performed By: #### 1989-3, RUBIGG, 7852-7, 7853-5, VZVG2 #### [facility] CLIA [id number] [address] [place] [address] [place] AMERICAReagin and Treponema pallidum IgG and IgM [Interp]on 04-02-2024T. pallidum IgG+IgM IA Ql (S) Non-ReactiveNormalNonreactiveMountain View HospitalComment on above:Order Comment: Specimen Type: BLOOD SPECIMEN Ordering Facility: [facility] Address: [address] [place], [place] [address]Performed By: #### 53240-1, 5195-3, 71997-4, 71930-0 #### [facility] CLIA [id number] [address] [place] [address] [place] AMERICAReagin+T pallidum IgG+IgM SerPl-Impon 04-32-9478Zfmlpw and Treponema pallidum IgG and IgM [Interp]Cannot exclude recent Treponemal infection if specimen collected within 7-10 days after appearance of suspect lesions or 2-3 weeks after an exposure. Clinical correlation is required.NormalBeach HospitalComment on above:Order Comment: Specimen Type: BLOOD SPECIMEN Ordering Facility: [facility] Address: [address] [place], [place] [address]Performed By: #### 81158-8, 5195-3, 45680-5, 62078-3 #### [facility] CLIA [id number] [address] [place] [address] [place] AMERICATYPE + SCREEN PRENATALon 11-05-9238VVNAIbxrvrHjsm HospitalComment on above:Order Comment: Specimen Type: BLOOD SPECIMEN Ordering Facility: [facility] Address: [address] [place], [place] [address]Performed By: #### TSPN #### [facility] [place] [id number] [address] [place] [address] [facility]FIRMARYRh Nom (Bld)[facility] Comment on above:Order Comment: Specimen Type: BLOOD SPECIMEN Ordering Facility: [facility] Address: [address] [place], [place] [address]Performed By: #### TSPN #### [facility] [place] [id number] [address] [place] [address] [facility]ITALTYPE AND SCREEN UJPSATUJGN60/19/2024 23:59Good [facility]aritan HospitalComment on above:Order Comment: Specimen Type: BLOOD SPECIMEN Ordering Facility: [facility] Address: [address] [place], [place] [address]Performed By: #### TSPN #### [facility] [id number] [address] [place] [address] [facility] INFIRMARYVARICELLA ZOSTER IGGon 04-02-2024 VARICELLA ZOSTER IGG, QUALPositiveNormalPositiveBeach HospitalComment on above: Order Comment: Specimen Type: BLOOD SPECIMEN Ordering Facility: [facility] Address: [address] [place], [place] [address]Result Comment: The result suggests recent or past exposure to Varicella-Zoster virus or chickenpoxvaccination or zoster vaccination. Positive result may also be seen due to presence of passively-transferred antibodies. Please correlate with patient's history. Performed By: #### 59338-9 #### [facility] CLIA [id number] [address] [place] [address] STATES OF AMERICACoding Summaryon 03-20-2024 Coding SummaryMLBase 64 YyowzzyhEZz3tDo+PGhlYWQ+XN4JPLRfJ39ugLXkbO7cB4RYNGpZObgyHAFTKTwXIfNhusWrQH5krOXh ZXJu [file] JSc (more content not included)...[facility] HospitalProvider Orderson 58-65-7548Tcdoxskr [id number]#1.00OTGTIFF [facility].Auto Diff 1on 24-10-1819Cldi Jefferson %3 %Normal1-12Magrj.[facility] HospitalComment on above:Performed By: #### [id number], 6419194, 6937252 #### [facility] (DEFAULT) [address] [place] [address] 46517Vppp Abs#0.0 f41Yorvqo7.0-0.2[facility] HospitalComment on above:Performed By: #### [id number], 3616947, 7182203 #### [facility] (DEFAULT) [address] [place] [address] 84408Avugsepzw/100 WBC (Bld)0.3 %Normal0.2-2.0[facility] Hospital Comment on above:Performed By: #### 01954216, 0691029, 6531784 #### [facility] (DEFAULT) [address] [place] [address] 18321Ygr Abs#0.0 a79Mbclfe5.0-0.4[facility] HospitalComment on above:Performed By: #### [id number], 8556838, 3005577 #### [facility] (DEFAULT) [address] [place] [address] 53968Yeqbzbbzism/100 WBC (Bld)0.1 %Low0.9-4.0[facility] Hospital Comment on above:Performed By: #### 98567068, 7668196, 9034120 #### [facility] (DEFAULT) [address] [place] [address] 80507Mtuph Abs#1.5 s88Ouluqw7.3-2.9[facility] HospitalComment on above:Performed By: #### 01471624, 4250720, 0419845 #### [facility] (DEFAULT) [address] [place] [address] 20917Lntzvuojkpf/100 WBC (Bld)16 %Ziswhr42-01Zgshludu Hospital Comment on above:Performed By: #### 95036611, 2501734, 2439743 #### [facility] (DEFAULT) [address] [place] [address] 65678Fqcq Abs#0.3 j44Iycnyt4.0-0.8[facility] HospitalComment on above:Performed By: #### 44161877, 0303105, 2568890 #### [facility] (DEFAULT) [address] [place] [address] 15770Xlmo Abs#7.8 i59Dzkzhx2.5-9.2[facility] HospitalComment on above:Performed By: #### 70160750, 3572654, 7789573 #### [facility] (DEFAULT) [address] [place] [address] 97104Psjcwwzykhy/100 WBC (Bld)81 %Cxemwu80-20Qytjyxyu Hospital Comment on above:Performed By: #### [id number], 7182923, 3314446 #### [facility] (DEFAULT) [address] [place] [address] 77559LBD w/ Auto Diffon 04-05-9084Qezqpgyvacj distribution width (RBC) [Ratio]13.9 %Joicfd01.5-15.0[facility] HospitalComment on above: Performed By: #### 92400195, 7626812, 3524365 #### [facility] (DEFAULT) [address] [place] [address] 17560Pykzwsccks (Bld) [Volume fraction]45.3 %High33.7-40.4 [facility] HospitalComment on above:Performed By: #### 73263184, 1282915, 6854952 #### [facility] (DEFAULT) [address] [place] [address] 41934Gvizyusrxh (Bld) [Mass/Vol]15.5 g/hBHnmpfq34.3-15.9 [facility] HospitalComment on above:Performed By: #### 56776106, 1830315, 6569733 #### [facility] (DEFAULT) [address] [place] [address] 69550Yod Diff?AutoInvalid Interpretation CodeGalion Hospital Comment on above:Performed By: #### [id number], 7344261, 4722607 #### [facility] (DEFAULT) [address] [place] [address] 23322FNH (RBC) [Entitic mass]29 rzSbccro64-90Timdgicy Hospital Comment on above:Performed By: #### [id number], 6691704, 0282404 #### [facility] (DEFAULT) [address] [place] [address] 53793DNNU (RBC) [Mass/Vol]34 g/iESjlkov11-17Gszivqxr Hospital Comment on above:Performed By: #### [id number], 0655249, 9670430 #### [facility] (DEFAULT) [address] [place] [address] 76276TMT (RBC) [Entitic vol]86 mRGnzbsq90-127Orcobptr Hospital Comment on above:Performed By: #### [id number], 6875220, 0588405 #### [facility] (DEFAULT) [address] [place] [address] 10243Hpgcvzbi679 n50Ahjnbg598-914Geuqbzpa HospitalComment on above:Performed By: #### 43601386, 7998817, 0554348 #### [facility] (DEFAULT) [address] [place] [address] 14227Lgavvbus mean volume (Bld) [Entitic vol]6.8 fLNormal 6.3-10.2[facility] HospitalComment on above:Performed By: #### 40944768, 9738706, 9063405 #### [facility] (DEFAULT) [address] [place] [address] 18546CWB4.28 o94Nsnnee7.70-5.30[facility] HospitalComment on above:Performed By: #### 49638213, 2349191, 7922531 #### [facility] (DEFAULT) [address] [place] [address] 18777PBD0.6 v70Sekkll3.5-10.5[facility] HospitalComment on above: Performed By: #### 64263741, 4854702, 0348105 #### [facility] (DEFAULT) [address] [place] [address] 89892Jvuquqteix 01-65-8411Pyajocxg [Mass/Vol]20.6 ng/mLNormal 12.0-150.0[facility] HospitalComment on above:Performed By: #### 39946954, 5092855, 1810462 #### [facility] (DEFAULT) [address] [place] [address] 74113Hggx Levelon 70-72-7538Bcmo [Mass/Vol]61.0 ug/dLNormal 28.0-170.0[facility] HospitalComment on above:Performed By: #### [id number] ####[facility] (DEFAULT)[address] [place] [address] [id number] ID: [id number] Author: IGNACIO GUY MD Service: ? Author [...] for three cycles. They will meet with PLUMBING MECHANIC to review the IUI checklist and sign consents. I spent a total of 45 minutes on the date of the service which included preparing to see the patient, cnwx-zf-jwgj patient care, completing clinical documentation, counseling and educating the patient/family/caregiver, and ordering medications, tests, or procedures. 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 They will meet with PLUMBING MECHANIC to review the IUI checklist and sign consents. I spent a total of 45 minutes on the date of the service which included preparing to see the patient, rxaa-yh-qwmf patient care, com (more content not included)...NormalRegional Medical CenterP,APTIMA HPV,AGE GDLNon 02-28[birth year]24 AGE GDLN ACOG TESTINGNote.NOMS HealthcareComment on above:TESTS RESULT FLAG UNITS REF RANGE LAB Clinician Provided Cytology Information Source.............Cervix;Endocervix No. of containers..01 ThinPrep Vial Age Algo ACOG Ezequiel... 01 FLAG LEGEND: L-Low Normal,H-High Normal,LL-Alert Low,HH-Alert High <-Panic Low,>-Panic High,A-Abnormal,AA-Critical Abnormal Performed at: 01 =G [facility] [place] [address] Dagmar Love MD, IGP, RFX APTIMA HPV ASCUNote.NOMS HealthcareComment on above:TESTS RESULT FLAG UNITS REF RANGE LAB DIAGNOSIS: 02 NEGATIVE FOR INTRAEPITHELIAL LESION OR MALIGNANCY. Specimen adequacy: 02 Satisfactory for evaluation. Endocervical and/or squamous metaplastic cells (endocervical component) are present. Performed by: 02 Edel Sewell, Notch Grinder ([facility]) . 02 Note: Note 02 The Pap [...] High,A-Abnormal,AA-Critical Abnormal Performed at: 02 [facility] [address] [place] [address] Dagmar Love MD, Performed at: =G - [facility] [address], [place] [id number] Train Braker: Dagmar Love MD, Phone: [phone] Performed at: - [address] [id number] Train Braker: Dagmar Love MD, Phone: [phone] BRUSH-SPATULA CERVIX ENDOCERVIX [facility] Summaryon 05-16-8493Etwjph SummaryMLBase 64 TvhgyrvaQPl4qJy+PGhlYWQ+AS5FCIKuP77sqCXjhR5dQ9GPVUnEEneuBTPEXEbKLzTkpcMbBR0pmMEn ZXJu [file] [facility] (more content not included)...[facility] papilloma virus 16+18+31+33+35+39+45+51+52+56+58+59+66+68 DNA [Presence] in Addi 81-91-7553IHN 16+18+31+33+35+39+45+51+52+56+58+59+66+68 DNA Probe+sig amp Ql (Cvx)Human papilloma virus 16+18+31+33+35+39+45+51+52+56+58+59+66+68 DNA [Presence] in Cer. [facility] HospitalComment on above:TESTS RESULT FLAG UNITS REF RANGE LAB DIAGNOSIS: 02 NEGATIVE FOR INTRAEPITHELIAL LESION OR MALIGNANCY.Specimen adequacy: 02 Satisfactory forevaluation. Endocervical and/or squamous metaplastic cells (endocervical component) are present.Performed by: 02 Edel Sewell, Notch Grinder ([facility]). 02Note: Note 02 The Pap smear is [...] <-Panic Low,>- Panic High,A-Abnormal,AA-Critical Abnormal Performed at:[address] [address] Dagmar Love MD, Byrykzumi at: = - [facility] [id number] Director: Dagmar Love MD, Phone: [phone] at: [facility] [address] [id number] Director: Dagmar Love MD, Phone: [phone] Panel Informationon 25-03-5544Xxcumkcdp Lab Test Patient AgeNotcolt.[facility] HospitalComment on above:TESTS RESULT FLAG UNITS REF RANGE LAB Clinician Provided Cytology Information Source.............Cervix;Endocervix No. of containers..01 ThinPrep VialAge Olafo HUMAOG Ezequiel... FLAG LEGEND: L-Low Normal,H-High Normal,LL-Alert Low,HH-Alert High <-Panic Low,>-Panic High,A- Abnormal,AA-Critical Abnormal Performed a t:01 =G [address] [address] Dagmar Love MD, .Auto Diff 1on 85-71-5002Fayp Jefferson %6 %Normal1-12 [facility] HospitalComment on above:Performed By: #### [id number] #### [facility] (DEFAULT) [address] [place] [address] 03854Knib Abs#0.0 j21Twgari4.0-0.2Magrj.[facility] HospitalComment on above:Performed By: #### [id number] #### [facility] (DEFAULT) [address] [place] [address] 51149Geujgcyqt/100 WBC (Bld)0.3 %Normal0.2-2.0[facility] Hospital Comment on above:Performed By: #### [id number] #### [facility] (DEFAULT) [address] [place] [address] 99453Xaa Abs#0.2 l76Mfoilq9.0-0.4[facility] HospitalComment on above:Performed By: #### [id number] #### [facility] (DEFAULT) [address] [place] [address] 03346Hibzsdwdaed/100 WBC (Bld)3.4 %Normal0.9-4.0[facility] HospitalComment on above:Performed By: #### [id number] #### [facility] (DEFAULT) [address] [place] [address] 83315Ojpxp Abs#2.4 i16Zhhnbo0.3-2.9[facility] HospitalComment on above:Performed By: #### [id number] #### [facility] (DEFAULT) [address] [place] [address] 24830Lomqhzoeedl/100 WBC (Bld)34 %Llwene05-05Lqbbtnch Hospital Comment on above:Performed By: #### [id number] #### [facility] (DEFAULT) [address] [place] [address] 30491Dcpf Abs#0.4 n44Twnrly6.0-0.8[facility] HospitalComment on above:Performed By: #### [id number] #### [facility] (DEFAULT) [address] [place] [address] 61481Rjcb Abs#4.0 i29Ijskma5.5-9.2[facility] HospitalComment on above:Performed By: #### [id number] #### [facility] (DEFAULT) [address] [place] [address] 40613Wknhncqhlto/100 WBC (Bld)56 %Urnkhb68-70Ddirzfuu Hospital Comment on above:Performed By: #### [id number] #### [facility] (DEFAULT) [address] [place] [address] 68704UYE w/ Auto Diffon 15-42-9754Lyeiaiwafcm distribution width (RBC) [Ratio]14.0 %Iewkwm97.5-15.0[facility] HospitalComment on above: Performed By: #### [id number] #### [facility] (DEFAULT) [address] [place] [address] 09040Hzsfuaxqsd (Bld) [Volume fraction]41.7 %High33.7-40.[address] [facility] HospitalComment on above:Performed By: #### [id number] #### [facility] (DEFAULT) [address] [place] [address] 55787Pngqqvxwff (Bld) [Mass/Vol]14.1 g/kLWqukwo67.3-15.[address] [facility] HospitalComment on above:Performed By: #### [id number] #### [facility] (DEFAULT) [address] [place] [address] 38780Lus Diff?AutoInvalid Interpretation CodeGalion Hospital Comment on above:Performed By: #### [id number] #### [facility] (DEFAULT) [address] [place] [address] 24736PZR (RBC) [Entitic mass]29 qzPoihoa63-98Jfgrxwxc Hospital Comment on above:Performed By: #### [id number] #### [facility] (DEFAULT) [address] [place] [address] 74264RIXA (RBC) [Mass/Vol]34 g/dJIhtfeb11-45Tsiabgjt Hospital Comment on above:Performed By: #### [id number] #### [facility] (DEFAULT) [address] [place] [address] 70377JSB (RBC) [Entitic vol]86 gANdwwgc43-790Licemdks Hospital Comment on above:Performed By: #### [id number] #### [facility] (DEFAULT) [address] [place] [address] 05944Hajhhplx344 h40Bqwnwu077-867Qzixrpeu HospitalComment on above:Performed By: #### [id number] #### [facility] (DEFAULT) [address] [place] [address] 06254Gcnigaqi mean volume (Bld) [Entitic vol]6.8 fLNormal 6.3-10.2[facility] HospitalComment on above:Performed By: #### [id number] #### [facility] (DEFAULT) [address] [place] [address] 47996GSU3.84 e04Hgbihn8.70-5.30[facility] HospitalComment on above:Performed By: #### [id number] #### [facility] (DEFAULT) [address] [place] [address] 33796TFG5.1 u13Awtrhi8.5-10.5[facility] HospitalComment on above: Performed By: #### [id number] #### [facility] (DEFAULT) [address] [place] [address] 14916Zyrpjtwvtz 69-27-6484Nixuwyao [Mass/Vol]15.8 ng/mLNormal 12.0-150.0[facility] HospitalComment on above:Performed By: #### [id number], 2872565, 4879823 #### [facility] (DEFAULT) [address] [place] [address] 83330Hhzu Profileon 77-26-1445Sgsx [Mass/Vol]72.0 ug/dLNormal 28.0-170.0[facility] HospitalComment on above:Performed By: #### [id number], 3287777, 1339424 #### [facility] (DEFAULT) [address] [place] [address] 91267Atbe Sat19 %End26-25Srvkfjgn HospitalComment on above: Performed By: #### [id number], 2183924, 9743995 #### [facility] (DEFAULT) [address] [place] [address] 59233CKXV184 mcg/iDDckfxm887-544Fensutfb HospitalComment on above:Performed By: #### [id number], 6716005, 7475761 #### [facility] (DEFAULT) [address] [place] [address] 49553Lmmxxucoaux [Mass/Vol]274.6 mg/uAHhdnbt785.0-382.0[facility] HospitalComment on above:Performed By: #### 10683583, 8258001, 5671818 #### [facility] (DEFAULT) [address] [place] [address] 06844Trhwmy Summaryon 27-52-5240Cocsfe SummaryMLBase 64 NgoymncgFVp5oHo+PGhlYWQ+BZ8FPGXjA61rrKYphT8wW4VNLNrWDdixIZPGTCtEJrVavlKjFJ9nwFLv ZXJu [file] c (more content not included)...[facility] CampusAmphetamine Screen Ql (U)Ordered By: Andry Lacy on 23-06-3693Xnocdguiiswi Ql (U)Amphetamines screenNegativeMercy Health St. [facility] Hospital CenterAmphetamines Ql (U)Negative NegativeMercy Health Allen HospitalBarbiturates [Presence] in Urine by Screen methodOrdered By: Andry Lacy on 83-09-7699Tcqtlcglepqm Screen Ql (U) NegativeNegativeMercy Health Allen HospitalBarbiturates Screen Ql (U) Barbiturates [Presence] in Urine by Screen methodNegSelect Medical Specialty Hospital - ColumbusBenzodiazepines Screen Ql (U)Ordered By: Andry Lacy on 32-20-8860Srsfuohfntfreqt Ql (U)PositiveHighNegSelect Medical Specialty Hospital - ColumbusBenzodiazepines Ql (U)Benzodiazepines [Presence] in Urine by Screen method HighNegSelect Medical Specialty Hospital - ColumbusBenzoylecgonine [Presence] in Urine by Screen methodOrdered By: Andry Lacy on 77-83-5499Biwhrazfwgmsemd Screen Ql (U)NegativeNegSelect Medical Specialty Hospital - ColumbusBenzoylecgonine Screen Ql (U)Benzoylecgonine [Presence] in Urine by Screen methodNegSelect Medical Specialty Hospital - ColumbusCannabinoids [Presence] in Urine by Screen methodOrdered By: Andry Lacy on 82-29-3081Ocxzuflawjen Screen Ql (U)PositiveHighEast Liverpool City HospitalComment on above:These are unconfirmed results and should not be used for legal purposes. Drug Cut-Off Concentration: AMPH 1000 ng/mL LUIS ANTONIO 200 ng/mL JOHN 200 ng/mL COCM 300 ng/mL OP 300 ng/mL PCP 25 ng/mL THC 20 ng/mLCannabinoids Screen Ql (U)Cannabinoids [Presence] in Urine by Screen methodHighNegSelect Medical Specialty Hospital - ColumbusComment on above:These are unconfirmed results and should not be used for legal purposes. Drug Cut-Off Concentration: AMPH 1000 ng/mL LUIS ANTONIO 200 ng/mL JOHN 200 ng/mL COCM 300 ng/mL OP 300 ng/mL PCP 25 ng/mL THC 20 ng/mLHCG ( test) IA.rapid Ql (U)Ordered By: Andry Lacy on 14-08-6643EEX ( test) Ql (U)NegativeMercy Health Allen HospitalHCG ( test) Ql (U)Urine human chorionic gonadotropin (hCG) detection by immunoassayMercy Health Allen Hospital Opiates [Presence] in Urine by Screen methodOrdered By: Andry Lacy on [id number] Screen Ql (U)NegativeNegativeMercy Health Allen Hospital Opiates Screen Ql (U)Opiates [Presence] in Urine by Screen methodNegative [facility] HospitalPhencyclidine Screen Ql (U)Ordered By: Andry Lacy on 21-04-0974Ughmpsomodslw Ql (U)NegativeNegativeMercy Health Allen HospitalPhencyclidine Ql (U)Phencyclidine [Presence] in Urine by Screen methodNegativeMercy Health Allen HospitalAlanine aminotransferase [Enzymatic activity/volume] in Serum or PlasmaOrdered By: Romeo Santana on 66-84-2139YDA [Catalytic activity/Vol]14 U/L7-52[facility] HospitalAlbumin [Mass/volume] in Serum or Plasma by Bromocresol green (BCG) dye binding methoOrdered By: Romeo Santana on [id number] BCG dye [Mass/Vol]4.6 g/dL3.5-5.7FV[facility] AdministrationAlkaline phosphatase [Enzymatic activity/volume] in Serum or PlasmaOrdered By: Romeo Santana on 32-23-4006JUU [Catalytic activity/Vol]41 U/X79-022AuqnxzrgaMercy Health Allen HospitalAspartate aminotransferase [Enzymatic activity/volume] in Serum or PlasmaOrdered By: Romeo Santana on 18-94-9333LGC [Catalytic activity/Vol]13 U/E28-65ZcexddqcaMercy Health Allen HospitalBasophils Auto (Bld) [#/Vol]Ordered By: Romeo Santana on 11-28-2023 Basophils (Bld) [#/Vol]0.0 10*3/uL0.0-0.2FVeterans Health Administration Basophils/100 WBC Auto (Bld)Ordered By: Romeo Santana on 70-31-1469Loaudnbup/100 WBC (Bld)0.3 %.[facility] HospitalBilirubin.total [Mass/volume] in Serum or PlasmaOrdered By: Romeo Santana on 93-16-3321Sutgopyse [Mass/Vol]0.5 mg/dL0.3-1.0[facility] HospitalCalcium [Mass/volume] in Serum or PlasmaOrdered By: Romeo Santana on 64-32-7546Nuyxfqq [Mass/Vol]9.4 mg/dL8.6-10.3 [facility] HospitalCarbon dioxide, total [Moles/volume] in Serum or PlasmaOrdered By: Romeo Santana on 32-47-1580DH2 [Moles/Vol]27.8 mmol/L 21.0-31.0[facility] HospitalChloride [Moles/volume] in Serum or PlasmaOrdered By: Romeo Santana on 24-86-9538Zpxrgztr [Moles/Vol]106 mmol/L98-107 [facility] HospitalCreatinine [Mass/volume] in Serum or Plasma Ordered By: Romeo Santana on 91-06-4820Wtnngjtfob [Mass/Vol]0.62 mg/dL0.60-1.20 [facility] HospitalEosinophils Auto (Bld) [#/Vol]Ordered By: Romeo Santana on 15-22-9722Wezelnujtvx (Bld) [#/Vol]0.2 10*3/uL0.0-0.45[facility] HospitalEosinophils/100 WBC Auto (Bld)Ordered By: Romeo Santana on 55-81-4453Oargplodmhj/100 WBC (Bld)3.5 %.[facility] Erythrocyte distribution width Auto (RBC) [Ratio]Ordered By: Romeo Santana on 96-72-2049Epqttkxncia distribution width (RBC) [Ratio]14.0 %11.9-15.3FVeterans Health AdministrationGlobulin Calc (S) [Mass/Vol]Ordered By: Romeo Santana on 72-84-4731Yypjeweb (S) [Mass/Vol]2.0 g/dLMercy Health Allen Hospital Glucose [Mass/volume] in Serum or PlasmaOrdered By: Romeo Santana on 11-28-2023 Glucose [Mass/Vol]76 mg/lI32-786UbiszsrwfMercy Health Allen HospitalHematocrit Auto (Bld) [Volume fraction]Ordered By: Romeo Santana on 21-75-4222Xwtycpbwqc (Bld) [Volume fraction]40.1 %34.0-46.4FVeterans Health AdministrationHemoglobin [Mass/volume] in BloodOrdered By: Romeo Santana on 47-84-7706Kcrfdbrdfz (Bld) [Mass/Vol]13.6 g/dL11.8-15.4FVeterans Health AdministrationLeukocytes [#/volume] corrected for nucleated erythrocytes in Blood by Automated coun Ordered By: Romeo Santana on 50-40-9166GLC corrected for nucl RBC Auto (Bld) [#/Vol]6.4 10*3/uL3.8-11.6FVeterans Health AdministrationLymphocytes Auto (Bld) [#/Vol]Ordered By: Romeo Santana on 52-27-7456Sfvrwynuxgy (Bld) [#/Vol]2.4 10*3/uL1.00-4.8[facility] HospitalLymphocytes/100 WBC Auto (Bld) Ordered By: Romeo Santana on 36-25-6699Qrdkkmesacs/100 WBC (Bld)38.3 %.[facility] HospitalMCH Auto (RBC) [Entitic mass]Ordered By: Romeo Santana on 11-58-6686LPE (RBC) [Entitic mass]29.3 pg24.7-34.3FVeterans Health AdministrationMCHC Auto (RBC) [Mass/Vol]Ordered By: Romeo Santana on 72-63-2377MGOL (RBC) [Mass/Vol]33.8 g/dL32.0-35.0[facility] HospitalMCV Auto (RBC) [Entitic vol]Ordered By: Romeo Santana on 83-44-6357SGU (RBC) [Entitic vol]86.7 pD66-801SinckytshMercy Health Allen HospitalMonocytes Auto (Bld) [#/Vol]Ordered By: Romeo Santana on 27-87-5603Mtwqkttie (Bld) [#/Vol]0.4 10*3/uL0.0-0.8[facility] HospitalMonocytes/100 WBC Auto (Bld)Ordered By: Romeo Santana on 77-88-4414Txkjscyme/100 WBC (Bld)5.8 %.[facility] Neutrophils Auto (Bld) [#/Vol]Ordered By: Romeo Santana on 75-20-5746Xoekjnkmjxb (Bld) [#/Vol]3.3 10*3/uL1.8-7.7FVeterans Health AdministrationNeutrophils/100 WBC Auto (Bld)Ordered By: Romeo Santana on 80-30-8516Cwwcytigypy/100 WBC (Bld) 52.1 %.[facility] HospitalNo Panel InformationOrdered By: Romeo Santana on 87-34-6574Xsgnygmia GFR (CKD-EPI)> 60.0 mL/MinMercy Health Allen HospitalPharmacy Creatinine Clearance (ChemN/AFVeterans Health AdministrationNucleated erythrocytes [Presence] in Blood by Automated countOrdered By: Romeo Santana on 57-49-1071Rijfibyba RBC Auto Ql (Bld)0.0 /100{WBC}0-0.5FVeterans Health AdministrationPlatelet mean volume Auto (Bld) [Entitic vol]Ordered By: Romeo Santana on 44-59-7369Sckvdsdq mean volume (Bld) [Entitic vol]6.8 fL6.3-10.7 [facility] HospitalPlatelets Auto (Bld) [#/Vol]Ordered By: Romeo Santana on 19-01-3565Qvjxbolfm (Bld) [#/Vol]159 10*3/lU589-073UyvnsotgpMercy Health Allen HospitalPotassium [Moles/volume] in Serum or PlasmaOrdered By: Romeo Santana on 16-16-7556Cmelqmyiu [Moles/Vol]4.2 mmol/L3.5-5.1FVeterans Health AdministrationProtein [Mass/volume] in Serum or PlasmaOrdered By: Romeo Santana on 59-63-6765Qaihnim [Mass/Vol]6.6 g/dL6.4-8.9[facility] RBC Auto (Bld) [#/Vol]Ordered By: Romeo Santana on 33-67-6326LXE (Bld) [#/Vol] 4.63 10*6/uL3.60-5.00[facility] Medical Centererum or plasma albumin/globulin mass ratioOrdered By: Romeo Santana on 11-28-2023 Albumin/Globulin [Mass ratio]2.3 {ratio}[facility] Medical Centererum or plasma anion gap determinationOrdered By: Romeo Santana on 40-54-4631Wtzef gap [Moles/Vol]10.4 mmol/L6.0-15.0[facility] Medical Centerodium [Moles/volume] in Serum or PlasmaOrdered By: Romeo Santana on 80-31-4809Ayhkbv [Moles/Vol]140 mmol/L493-207KybbvvxptMercy Health Allen HospitalUrea nitrogen [Mass/volume] in Serum or PlasmaOrdered By: Romeo Santana on 24-90-0665Cazg nitrogen [Mass/Vol]7 mg/dL7-25Mer[facility] HospitalWBC Auto (Bld) [#/Vol]Ordered By: Romeo Snatana on 25-02-3855RTC (Bld) [#/Vol]6.4 10*3/uL 3.8-11.6FVeterans Health AdministrationCoding Summaryon 40-80-7032Zbgrra SummaryHTMLBase 64 EdedksvxRPx9sOq+PGhlYWQ+LA2NRBEoY74jfFMxsN8kS7UBRUbXCvxbWXMOOGjRTeKghfOvUH0jdMJs ZXJu [file] b3J (more content not included)...NormalMagruder HospitalCoding SummaryHTMLBase 64 RvumesuxXXy6kHm+PGhlYWQ+XC3ZJRMoW28leZShnD6kP6CNPLqQLtbePISNJFjJRrKxcdJwZB5baQZn ZXJu [file] b3J (more content not included)...[facility] HospitalProvider Orderson 43-08-6305Akjwgotb [id number]#1.00OTGTIFF [facility] CampusChlamydia/GC Amplification LCon 07-52-1198Wcyvcxssh trachomatis, AC LCNegativeInvalid Interpretation CodeNegSelect Medical [facility] Comment on above:Performed By: #### [id number] #### [facility] (DEFAULT) [address] [place] [address] 81922Piqoxuzpk gonorrhoeae, AC LCNegativeInvalid Interpretation CodeNegSelect Medical OhioHealth Rehabilitation HospitalComment on above:Result Comment: Performed At: =[facility] [id number] Ivan Calvin MD Ph:[phone] By: #### [id number] #### [facility] (DEFAULT) [address] [place] [address] 24512Hjhhycr Formson 06-58-7262Xpvrmkw Forms [id number]#1.00OTGTIFFSt. Mary's Medical Center, Iront[facility] CampusED Note-Nursingon 87-82-1901RM Note-NursingFluconazole 150mg tab called into [facility] Patient contacted and notified of the results of her culture and the prescription that was sent forher. Instructions on how to take the medication was given, patient verbalized understanding [facility].Auto Diff 1on 10-79-8769Jkhw Jefferson %9 %Normal1-12[facility] Comment on above:Performed By: #### [id number], [id number], [id number] #### [facility] (DEFAULT) [address] [place] [address] 70680Zata Abs#0.0 q27Fwhzke4.0-0.2[facility] HospitalComment on above:Performed By: #### [id number], [id number], [id number] #### [facility] (DEFAULT) [address] [place] [address] 98613Xnyynaipz/100 WBC (Bld)0.2 %Normal0.2-2.0[facility] Comment on above:Performed By: #### [id number], [id number], 8799088 #### [facility] (DEFAULT) [address] [place] [address] 64053Adc Abs#0.3 x65Ppuvuv6.0-0.4[facility] HospitalComment on above:Performed By: #### [id number], [id number], [id number] #### [facility] (DEFAULT) [address] [place] [address] 65305Xxiqfxjelua/100 WBC (Bld)9.0 %High0.9-4.0[facility] Comment on above:Performed By: #### [id number], 7576698, 6594977 #### [facility] (DEFAULT) [address] [place] [address] 26853Asapt Abs#0.4 y20Knd7.3-2.9[facility] HospitalComment on above:Performed By: #### [id number], [id number], 0442817 #### [facility] (DEFAULT) [address] [place] [address] 21186Inlipipcmug/100 WBC (Bld)12 %Txd80-60LtinvamtGalion Hospital Comment on above:Performed By: #### [id number], [id number], 7123518 #### [facility] (DEFAULT) [address] [place] [address] 49407Dhqe Abs#0.3 n11Pllagv2.0-0.8[facility] HospitalComment on above:Performed By: #### [id number], 0409965, [id number] #### [facility] (DEFAULT) [address] [place] [address] 46927Qsch Abs#2.4 n01Kmizqf8.5-9.2[facility] HospitalComment on above:Performed By: #### [id number], 6958524, 5174529 #### [facility] (DEFAULT) [address] [place] [address] 05182Tmdqxlbcrai/100 WBC (Bld)70 %Qievnw47-49Azcaaeej Hospital Comment on above:Performed By: #### [id number], [id number], 5979250 #### [facility] (DEFAULT) [address] [place] [address] 67654Y Genitalon 11-02-2023 GenitalHeavy growth of Yeast No CARLOS performed on this organism No growth of GC at 3 days. 4+ Gram Positive Rods Few Yeast No WBC's seen. Gram Negative Diplococci not seen.[facility] CampusComment on above: Performed By: #### [id number] #### [facility] (DEFAULT) [address] [place] [address] 44787WUJ w/ Auto Diffon 10-59-9368Slxrxzrjsxv distribution width (RBC) [Ratio]13.7 %Gvwjli28.5-15.0[facility] HospitalComment on above: Performed By: #### [id number], [id number], 9003974 #### [facility] (DEFAULT) [address] [place], [place] [address]Hematocrit (Bld) [Volume fraction]40.5 %High33.7-40.4 [facility] HospitalComment on above:Performed By: #### [id number], 0507332, 7339363 #### [facility] (DEFAULT) [address] [place], [place] [address]Hemoglobin (Bld) [Mass/Vol]13.7 g/uSFxgobw16.3-15.9 [facility] HospitalComment on above:Performed By: #### [id number], 5242454, 3178996 #### [facility] (DEFAULT) [address] [place] [address] 67882Vvq Diff?AutoInvalid Interpretation [facility] Comment on above:Performed By: #### [id number], 6515517, [id number] #### [facility] (DEFAULT) [address] [place] [address] 44264GIR (RBC) [Entitic mass]29 hcHeqqud94-66Mzqzuokp Hospital Comment on above:Performed By: #### [id number], 9043496, 4084181 #### [facility] (DEFAULT) [address] [place] [address] 93961GREX (RBC) [Mass/Vol]34 g/cZFtvgom58-35Xsmmtpmd Hospital Comment on above:Performed By: #### [id number], 5282401, 8869978 #### [facility] (DEFAULT) [address] [place] [address] 31784BCN (RBC) [Entitic vol]85 pAEqzrjg59-682Wumfwnsr Hospital Comment on above:Performed By: #### [id number], 6211032, 9375289 #### [facility] (DEFAULT) [address] [place] [address] 19368Wsfkdzkj559 j52Fys105-679Vbqodtzc HospitalComment on above:Performed By: #### [id number], 0590032, 1559986 #### [facility] (DEFAULT) [address] [place] [address] 28849Whmoueuw mean volume (Bld) [Entitic vol]7.0 fLNormal 6.3-10.2[facility] HospitalComment on above:Performed By: #### [id number], 7942882, 7247976 #### [facility] (DEFAULT) [address] [place] [address] 04893PZU2.74 g36Bosrrp6.70-5.30[facility] HospitalComment on above:Performed By: #### [id number], 2903525, 4975462 #### [facility] (DEFAULT) [address] [place] [address] 42931UWP2.5 g80Tjmbns2.5-10.5[facility] HospitalComment on above: Performed By: #### [id number], [id number], 1713552 #### [facility] (DEFAULT) [address] [place] [address] 70348NSE Standardon 90-17-8928gTCQ Non AA>60Invalid Interpretation [facility] HospitalComment on above:Performed By: #### [id number], 8777365, 2449203 #### [facility] (DEFAULT) [address] [place] [address] 81290kAOC AA>60Invalid Interpretation [facility] Comment on above:Performed By: #### [id number], 5568004, 1989144 #### [facility] (DEFAULT) [address] [place] [address] 62689Akvhrvb [Mass/Vol]4.1 g/dLNormal3.5-5.0[facility] Comment on above:Performed By: #### [id number], 3935594, 4555717 #### [facility] (DEFAULT) [address] [place] [address] 24760Ksxkjei/Globulin [Mass ratio]1.7 {ratio}Normal1.4-2.[address] [facility] HospitalComment on above:Performed By: #### [id number], 9121712, 4138580 #### [facility] (DEFAULT) [address] [place] [address] 93953Yph Phos40 IU/ABseiad54-36Npedqtsj HospitalComment on above:Performed By: #### [id number], 9496657, 4053393 #### [facility] (DEFAULT) [address] [place] [address] 40215TKK [Catalytic activity/Vol]20.0 U/CMiflvu25.0-54.[address] [facility] HospitalComment on above:Performed By: #### [id number], 6460578, 4383297 #### [facility] (DEFAULT) [address] [place] [address] 31544Bmumf gap [Moles/Vol]9.5 mmol/LNormal5.0-19.0[facility] HospitalComment on above:Performed By: #### [id number], 7276162, 2725785 #### [facility] (DEFAULT) [address] [place] [address] 38062JTM [Catalytic activity/Vol]19 U/GOjnifj49-45Kuyqmrbe HospitalComment on above:Performed By: #### [id number], 0311740, 1346652 #### [facility] (DEFAULT) [address] [place] [address] 38773Nukb Total0.7 mg/dLNormal0.3-1.2[facility] HospitalComment on above:Performed By: #### [id number], 2051488, 9192561 #### [facility] (DEFAULT) [address] [place] [address] 79602Hrujihk [Mass/Vol]8.4 mg/dLLow8.9-10.3[facility] Hospital Comment on above:Performed By: #### [id number], 7041026, 0777585 #### [facility] (DEFAULT) [address] [place] [address] 47676Wpormvds [Moles/Vol]109 mmol/GJcmuvu389-223Kctzgcbh HospitalComment on above:Performed By: #### [id number], 8969046, 5067444 #### [facility] (DEFAULT) [address] [place] [address] 14629YE6 [Moles/Vol]21 mmol/JLvxcfp01-04Nsaaxpjn Hospital Comment on above:Performed By: #### [id number], 8258118, 1005650 #### [facility] (DEFAULT) [address] [place] [address] 08888Fgbqyjgzwp [Mass/Vol]0.71 mg/dLNormal0.60-1.30[facility] HospitalComment on above:Performed By: #### [id number], 3740770, 1648491 #### [facility] (DEFAULT) [address] [place] [address] 37816Jodzbwrb (S) [Mass/Vol]2.4 g/dLNormal1.5-4.3MUniversity Hospitals TriPoint Medical CenterComment on above:Performed By: #### [id number], 6535812, 2805702 #### [facility] (DEFAULT) [address] [place] [address] 11899Zpltpcz [Mass/Vol]95.0 mg/hULvamuv24.0-118.0[facility] HospitalComment on above:Performed By: #### [id number], 5391151, 2182478 #### [facility] (DEFAULT) [address] [place] [address] 56005Tbjygpbvmc511 mOsm/LInvalid Interpretation CodeMercy Health St. [facility] HospitalComment on above:Performed By: #### [id number], 9456014, 8428166 #### [facility] (DEFAULT) [address] [place] [address] 21378Lgegsfeex [Moles/Vol]3.5 mmol/LLow3.6-5.1[facility] Hospital Comment on above:Performed By: #### [id number], 7692019, 1860358 #### [facility] (DEFAULT) [address] [place] [address] 82009Kzoydvv [Mass/Vol]6.5 g/dLNormal6.5-8.1MUniversity Hospitals TriPoint Medical Center Comment on above:Performed By: #### [id number], 1846148, 0099134 #### [facility] (DEFAULT[facility] [address] [place] [address] 73425Ifdvcd [Moles/Vol]136.0 mmol/TFnocjh740.0-144.0[facility] HospitalComment on above:Performed By: #### [id number], 7545806, 1829560 #### [facility]DEFAULT[facility] [address] [place] [address] 71128Okst nitrogen [Mass/Vol]7 mg/dLLow8-26[facility] Comment on above:Performed By: #### [id number], 4277719, 8234287 #### [facility] (DEFAULT[facility] [address] [place] [address] 57137Dlvq nitrogen/Creatinine [Mass ratio]9.8 mg/mgNormal 4.6-16.2MUniversity Hospitals TriPoint Medical CenterComment on above:Performed By: #### [id number], 8884186, 3573419 #### [facility] (DEFAULT) [address] [place] [address] 57057MO Abdomen/Pelvis w/ Contraston 27-58-8318XL Abdomen/Pelvis w/ ContrastEXAMINATION: CT Abdomen/Pelvis w/ Contrast, [...] Monteiro DO 11/02/23 3:37 pm Technologist: [facility] Clinical Summaryon [id number] [facility] [address] [place] [address] [id number] ED Clinical Summary PERSON INFORMATION Name: JAZ SANDERS Age: 28 Years Sex: FEMALE : 1995 MRN: Acct#: Visit Reason: Abdominal pain; Nausea; FLANK/HIP PAIN, FEVER Arrival: 11/02/2023 07:57:28 Discharge: 11/02/2023 13:31:00 LOS: 000 05:34 Check In: 11/02/2023 07:57:28 Checkout:11/02/2023 13:31:00 [facility] [address] PCP: Amanda Ford CNP PROVIDER INFORMATION Provider [...] Follow-Up: With: Address: When: Amanda Ford CNP [address] [place] [address] Within 3 to 5 days DIAGNOSIS: 1:Hip pain Patient Understands: Yes - Patient/family/caregiver verbalizes understanding of instructions given Comment:[facility] Patient Summaryon [id number] Patient Summary [facility] - Emergency Department [address] [place] [address] PATIENT DISCHARGE INSTRUCTIONS Patient Information Name: JAZ SANDERS Age: 28 Years Date of : 1995 Reason For Visit: Abdominal pain; Nausea; FLANK/HIP PAIN, FEVER Arrival Time: 11/02/2023 07:57:28 Primary Care Physician: Amanda Ford CNP Attending Physician: Narda Phillips MD Comment: Visit Diagnosis: Diagnoses This Visit Abdominal pain ([id number]) Hip pain (M25.559) Nausea (ILn7LKQ0zYykUfDTm5ozch) The Pharmacy at [facility] is open Tuesday through Tuesday from [...] alcohol and/or drug addiction problems; contact the [facility] 08/11 Crisis Hotline -Text 5FSPH xf 076379. If you received any narcotics, sedation, or [...] documents With: Address: When: Amanda Ford CNP [facility] [place] [address] Within 3 to 5 days Medication Information: The exam and treatment you received today in the [facility] Emergency Department were for an urgent problem and are not intended as complete care. It is important for you to follow up with a doctor, nurse practitioner, or physician?s community assistant for ongoing care. If your symptoms [...] so we can reach you if necessary. [facility] Emergency Department has provided you with a complete list of medications post discharge. Please inform your manager revenue/provider of your visit and for further instruction on these medications. Any specific questions regarding your chronic medications and dosages should be discussed with your primary care physician(s) and/or pharmacist. New Medications [facility] [address] [place], [place] [id number], [phone] cyclobenzaprine (cyclobenzaprine 10 mg oral tablet) 1 [...] Refills: 0. lidocaine topic (more content not included)...[facility] CampusExtra Green on 91-05-6815Sejr CollectedYesInvalid Interpretation [facility] Comment on above:Performed By: #### [id number], [id number], [id number] #### [facility] (DEFAULT) [address] [place] [address] 39551Zrxxnvhzq Test Urine 1on 11-02-2023U PregNegativeMercy HospitalComment on above:Performed By: #### [id number] #### [facility] (DEFAULT) [address] [place] [address] 84260T Preg Internal ControlPassSt. Mary's Medical Center, Ironton CampusComment on above:Performed By: #### [id number] #### [facility] (DEFAULT) [address] [place] [address] 74963JW Naqoo1gt 03-06-0158VU BacteriaTraceSt. Mary's Medical Center, Ironton CampusComment on above:Order Comment: Urinalysis Microscopic order added on by [employer] Rules system.Performed By: #### [id number] #### [facility] (DEFAULT) [address] [place] [address] 20104DI Mucous1+[facility] CampusComment on above:Order Comment: Urinalysis Microscopic order added on by [employer] Rules system. Performed By: #### [id number] #### [facility] (DEFAULT) [address] [place] [address] 96746AY RBCNone SeenWVUMedicine Harrison Community Hospital HospitalComment on above: Order Comment: Urinalysis Microscopic order added on by [employer] Rules system.Performed By: #### [id number] #### [facility] (DEFAULT) [address] [place] [address] 56391LZ Squam EpiFewNoPremier Health HospitalComment on above: Order Comment: Urinalysis Microscopic order added on by [employer] Rules system.Performed By: #### [id number] #### [facility] (DEFAULT) [address] [place] [address] 61317IV WBCNone SeenWVUMedicine Harrison Community Hospital HospitalComment on above: Order Comment: Urinalysis Microscopic order added on by [employer] Rules system.Performed By: #### [id number] #### [facility] (DEFAULT) [address] [place] [address] 12535ZB w Culture if Ind Standardon 38-42-5078Ejycbzxfhe UA NormalMercy Health St[facility] HospitalComment on above:Performed By: #### [id number] #### [facility] (DEFAULT) [address] [place] [address] 52083Oqrpx (U)Dark YellowNoSCCI Hospital LimaComment on above:Performed By: #### [id number] #### [facility] (DEFAULT) [address] [place] [address] [id number]?Not IndicatedInvalid Interpretation [facility] HospitalComment on above:Result Comment: Result created by rule GL_MAGR_ADD_UA_CULTPerformed By: #### [id number] #### [facility] (DEFAULT) [address] [place] [address] [id number] (U) [Mass/Vol]NegativeWVUMedicine [facility] Hospital Comment on above:Performed By: #### [id number] #### [facility] (DEFAULT) [address] [place] [address] [phone] Ql (U)TRACENormalMagruder HospitalComment on above:Performed By: #### [id number] #### [facility] (DEFAULT) [address] [place] [address] [id number]?IndicatedInvalid Interpretation CodeCogruder HospitalComment on above:Result Comment: Result created by rule GL_MAGR_ADD_UA_MICROPerformed By: #### [id number] #### [facility] (DEFAULT) [address] [place], [place] [id number] BilirubinMODERATEAbnormalCogrj.w. [facility] HospitalComment on above:Performed By: #### [id number] #### [facility] (DEFAULT) [address] [place] [address] [id number] BloodNegativeNormalNEGATIVEMagrj.w. [facility] HospitalComment on above:Performed By: #### [id number] #### [facility] (DEFAULT) [address] [place] [address] [id number] ClaritySL CLOUDYAbnormalCLEARMagrj.w. [facility] HospitalComment on above:Performed By: #### [id number] #### [facility] (DEFAULT) [address] [place] [address] [id number] Leuk EstNegativeNormalNEGATIVEMercy Health St. [facility] HospitalComment on above:Performed By: #### [id number] #### [facility] (DEFAULT) [address] [place] [address] [id number] NitriteNegativeNormalNEGATIVECogrj.w. [facility] HospitalComment on above:Performed By: #### [id number] #### [facility] (DEFAULT) [address] [place] [address] [id number] pH6.7Batfie1-0Eczhbcfu HospitalComment on above: Performed By: #### [id number] #### [facility] (DEFAULT) [address] [place] [address] [id number] Fwkgfce54QuysdgtgLJUZACGWRjouxpkl HospitalComment on above:Performed By: #### [id number] #### [facility] (DEFAULT) [address] [place] [address] [id number] Spec Grav>=1.212Aluljq3.001-1.035[facility] Hospital Comment on above:Performed By: #### [id number] #### [facility] (DEFAULT) [address] [place] [address] [id number] Urobilinogen1.0 mg/dLNormal0.2-1.0[facility] Comment on above:Performed By: #### [id number] #### [facility] (DEFAULT) [address] [place] [address] [id number] SourceClean CatchSt. Mary's Medical Center, Ironton CampusComment on above:Performed By: #### [id number] #### [facility] (DEFAULT) [address] [place] [address] [id number] [facility].on 73-59-2939Krq [facility] Main[facility] CampusComment on above:Performed By: #### [id number] #### [facility] (DEFAULT) [address] [place] [address] [id number] Summaryon 33-61-7364Gdhjvp SummaryHTMLBase 64 IduedrshZTg0lOj+PGhlYWQ+WO3MDORmB08yyCMlwI7fP6RTDPyVRwbpHLGDBIuDNnDfpjTwEY0qbPWh ZXJu [file] [facility] (more content not included)...[facility] CampusBasophils Auto (Bld) [#/Vol]on 46-65-6163Fwumgqlyr (Bld) [#/Vol]0.0 x100.0-0.2FVeterans Health AdministrationBasophils/100 WBC Auto (Bld)on 94-00-1368Mmzmjjudo/100 WBC (Bld) 0.3 %0.2-2.0[facility] HospitalEosinophils/100 WBC Auto (Bld)on 86-48-5493Ndrruxwlsel/100 WBC (Bld)2.7 %0.9-4.0[facility] Erythrocyte distribution width Auto (RBC) [Ratio]on 99-93-5519Rkedcztacqr distribution width (RBC) [Ratio]14.1 %11.5-15.0[facility] Hematocrit Auto (Bld) [Volume fraction]on 33-20-8094Vjvxrrjlzp (Bld) [Volume fraction]41.4 %High33.7-40.4FVeterans Health AdministrationHemoglobin [Mass/volume] in Bloodon 14-62-4493Dbjzoqcenx (Bld) [Mass/Vol]14.0 g/dL11.3-15.9 [facility] HospitalIron binding capacity [Mass/volume] in Serum or Plasmaon 93-84-2133Fkxf binding capacity [Mass/Vol]405 mcg/aPKdrp590-968 [facility] HospitalIron saturation [Mass Fraction] in Serum or Plasmaon 90-25-8747Wizt saturation [Mass fraction]12 %Mbp86-92QbrrpdttvMercy Health Allen HospitalLaboratory - Chemistry and Chemistry - challengeon 90-32-2800Czeo [Mass/Vol]48.0 ug/dL28.0-170.0[facility] HospitalTransferrin [Mass/Vol]289.2 mg/dL192.0-382.0[facility] HospitalLeukocytes [#/volume] corrected for nucleated erythrocytes in Blood by Automated counon 10-97-5958VVE corrected for nucl RBC Auto (Bld) [#/Vol]6.4 x103.5-10.5FVeterans Health AdministrationLymphocytes Auto (Bld) [#/Vol]on 38-80-3411Oowniokuslk (Bld) [#/Vol]2.2 x101.3-2.9[facility] HospitalLymphocytes/100 WBC Auto (Bld)on 86-38-9186Spcrqhzoenw/100 WBC (Bld)34 %14-48[facility] HospitalMCH Auto (RBC) [Entitic mass]on 88-58-7423BVR (RBC) [Entitic mass] 29 dd79-31YkkvctfodMercy Health Allen HospitalMCHC Auto (RBC) [Mass/Vol]on 24-93-5435CCNN (RBC) [Mass/Vol]34 g/hT56-84TgyeuzyfxMercy Health Allen HospitalMCV Auto (RBC) [Entitic vol]on 42-81-0608MXE (RBC) [Entitic vol]87 yM69-521MspmonphiMercy Health Allen HospitalMonocytes Auto (Bld) [#/Vol]on 12-49-5496Uxunhrzup (Bld) [#/Vol]0.4 x100.0-0.8[facility] HospitalMonocytes/100 WBC Auto (Bld)on 83-54-9254Xkcmjgtgf/100 WBC (Bld)6 %1-12[facility] HospitalNeutrophils Auto (Bld) [#/Vol]on 31-43-6406Qgduwlpuqhg (Bld) [#/Vol]3.7 x101.5-9.2FVeterans Health AdministrationNeutrophils/100 WBC Auto (Bld)on 53-65-6371Pykkmjrnndy/100 WBC (Bld)57 %44-88Mer[facility] HospitalNo Panel Informationon 41-20-1538Rml Manual DifferentialAuto AutoMercy Health Allen HospitalEosinophils # (Auto)0.2 x100.0-0.4FVeterans Health AdministrationPlatelet mean volume Auto (Bld) [Entitic vol]on 76-83-9332Etmjnbfj mean volume (Bld) [Entitic vol]6.7 fL6.3-10.2FVeterans Health Administration Platelets Auto (Bld) [#/Vol]on 81-61-7351Myykusxjf (Bld) [#/Vol]179 o84038-882 [facility] HospitalRBC Auto (Bld) [#/Vol]on 48-11-9291HHJ (Bld) [#/Vol]4.76 x103.70-5.30[facility] HospitalFollitropin [Units/volume] in Serum or PlasmaOrdered By: LEOBARDO BARROSO on 06-23-2022 Follitropin Qn6.2 m[IU]/mLMercy Health Allen HospitalComment on above: FEMALE NORMALS (PREMENOPAUSE) MID-FOLLICULAR PHASE: 3.9-8.8 mIU/mL MID-CYCLE PEAK: 4.5-22.5 mIU/mL MID-LUTEAL PHASE: 1.8-5.1 mIU/mLFEMALE NORMALS (POSTMENOPAUSE): 16.7-113.6 mIU/mLMALE NORMALS: 1.3-19.3 mIU/mLProlactin [Mass/volume] in Serum or PlasmaOrdered By: LEOBARDO BARROSO on 06-23-2022 Prolactin [Mass/Vol]7.58 ng/mL3.34-26.72[facility] HospitalCT biopsyOrdered By: Amanda Ford on 86-06-2354Iidvbkpcopu [Mass/Vol]393 mg/nY862-867AilqkvxtfMercy Health Allen HospitalIron [Mass/volume] in Serum or PlasmaOrdered By: Amanda Ford on 22-22-6172Scoa [Mass/Vol]34 ug/bC00-718 [facility] HospitalIron binding capacity [Mass/volume] in Serum or PlasmaOrdered By: Amanda Ford on 43-56-2016Xnzu binding capacity [Mass/Vol]550 ug/sE055-031IkggvegiiMercy Health Allen HospitalIron saturation [Mass Fraction] in Serum or PlasmaOrdered By: Amanda Ford on 83-81-8132Chgf saturation [Mass fraction]6.2 %20-50[facility] Anisocytosis LM Ql (Bld)Ordered By: Farhad Gallego on 52-95-2581Wrjryitmxdaa Ql (Bld)MarkedMercy Health Allen HospitalBasophils Auto (Bld) [#/Vol]Ordered By: Farhad Gallego on 89-81-2204Osgufkvju (Bld) [#/Vol]N/[facility] HospitalBasophils/100 WBC Auto (Bld)Ordered By: Farhad Gallego on 06-11-2022 Basophils/100 WBC (Bld)N/[facility] HospitalBasophils/100 WBC Manual cnt (Bld)Ordered By: Farhad Gallego on 67-30-3746Puqoxjuim/100 WBC (Bld)1 % 0-2FVeterans Health AdministrationEosinophils Auto (Bld) [#/Vol]Ordered By: Farhad Gallego on 72-55-4101Nifgtibpuqk (Bld) [#/Vol]N/[facility] HospitalEosinophils/100 WBC Auto (Bld)Ordered By: Farhad Lashonda on 06-11-2022 Eosinophils/100 WBC (Bld)N/[facility] HospitalEosinophils/100 WBC Manual cnt (Bld)Ordered By: Farhad Lashonda on 18-46-2707Mpzjzsbwxwo/100 WBC (Bld) 7 %1-3FVeterans Health AdministrationErythrocyte distribution width Auto (RBC) [Ratio]Ordered By: Farhad Lashonda on 31-54-3844Bwfyfkzlrhq distribution width (RBC) [Ratio]26.1 %11.9-15.3FVeterans Health AdministrationHematocrit Auto (Bld) [Volume fraction]Ordered By: Farhad Lashonda on 28-04-0155Cxlenkfxvg (Bld) [Volume fraction]25.7 %34.0-46.4FVeterans Health AdministrationHemoglobin [Mass/volume] in BloodOrdered By: Farhad Lashonda on 58-90-0401Bhapapffcs (Bld) [Mass/Vol]8.0 g/dL11.8-15.4FVeterans Health AdministrationHypochromia LM Ql (Bld)Ordered By: Farhad Lashonda on 12-54-1870Auswvcwlruf Ql (Bld)Premier HealthLeukocytes [#/volume] corrected for nucleated erythrocytes in Blood by Automated counOrdered By: Farhad Lashonda on 03-67-8777VSH corrected for nucl RBC Auto (Bld) [#/Vol]5.0 10*3/uL3.8-11.6FVeterans Health AdministrationLymphocytes Auto (Bld) [#/Vol]Ordered By: Farhad Lashonda on 80-90-8984Jvxurtksfse (Bld) [#/Vol]N/[facility] Lymphocytes/100 WBC Auto (Bld)Ordered By: Farhad Lashonda on 06-11-2022 Lymphocytes/100 WBC (Bld)N/[facility] HospitalLymphocytes/100 WBC Manual cnt (Bld)Ordered By: Farhad Lashonda on 70-63-2837Vkycihgazul/100 WBC (Bld) 56 %18-42[facility] HospitalMCH Auto (RBC) [Entitic mass]Ordered By: Farhad Lashonda on 86-54-4887LXX (RBC) [Entitic mass]21.1 pg24.7-34.3FVeterans Health AdministrationMCHC Auto (RBC) [Mass/Vol]Ordered By: Farhad Lashonda on 11-34-4928LVOS (RBC) [Mass/Vol]31.2 g/dL32.0-35.0[facility] HospitalMCV Auto (RBC) [Entitic vol]Ordered By: Farhad Lashonda on 28-89-1254XFK (RBC) [Entitic vol]67.6 dS20-430DhtrirmvxMercy Health Allen HospitalMicrocytes LM Ql (Bld)Ordered By: Farhad Lashonda on 19-08-9053Eqhzzbttir Ql (Bld)MarkedMercy Health Allen HospitalMonocytes Auto (Bld) [#/Vol]Ordered By: Farhad Lashonda on 09-63-0912Vnvwyjvib (Bld) [#/Vol]N/[facility] Monocytes/100 WBC Auto (Bld)Ordered By: Farahd Lashonda on 38-12-1706Opkpbxbbl/100 WBC (Bld)N/[facility] HospitalMonocytes/100 WBC Manual cnt (Bld) Ordered By: Farhad Lashonda on 38-95-6325Hhklcmikn/100 WBC (Bld)5 %2-11[facility] HospitalNeutrophils Auto (Bld) [#/Vol]Ordered By: Farhad Lashonda on 42-25-4075Wzvtzvfiobk (Bld) [#/Vol]N/[facility] Neutrophils/100 WBC Auto (Bld)Ordered By: Farhad Lashonda on 06-11-2022 Neutrophils/100 WBC (Bld)N/[facility] HospitalNucleated erythrocytes [Presence] in Blood by Automated countOrdered By: Farhad Lashonda on 68-73-6489Jocmwyysb RBC Auto Ql (Bld)N/[facility] Platelet adequacy [Presence] in Blood by Light microscopyOrdered By: Farhad Lashonda on 45-24-5044Fajizxmfe LM Ql (Bld)NormalNoSt. Vincent HospitalPlatelet mean volume Auto (Bld) [Entitic vol]Ordered By: Farhad Lashonda on 25-88-1479Ltfqfuvg mean volume (Bld) [Entitic vol]8.2 fL6.3-10.7FVeterans Health AdministrationPlatelet morphology finding [Identifier] in BloodOrdered By: FarhadMerchant on 98-21-6622Huypimuc morphology finding Nom (Bld)NormalNoCleveland Clinic Lutheran HospitalPlatelets Auto (Bld) [#/Vol]Ordered By: Farhad Lashonda on 53-43-9231Vmnaoaqob (Bld) [#/Vol]165 10*3/bZ968-356BinvygelcMercy Health Allen HospitalPolychromasia [Presence] in Blood by Light microscopyOrdered By: Farhad Gallego on 49-30-1642Kljewakgvznrr LM Ql (Bld)[facility] CenterRB Auto (Bld) [#/Vol]Ordered By: Farhad Gallego on 67-12-9739CIQ (Bld) [#/Vol]3.80 10*6/uL3.60-5.00[facility] HospitalRB morphologyOrdered By: Farhad Gallego on 46-82-0254SZX morphology finding Nom (Bld) N/AFGlenbeigh Hospitalegmented neutrophils/100 WBC Manual cnt (Bld)Ordered By: Farhad Gallego on 06-35-5564Xhkxkkltm neutrophils/100 WBC (Bld)32 %50-70[facility] HospitalWBC Auto (Bld) [#/Vol]Ordered By: Farhad Gallego on 84-50-3117UHL (Bld) [#/Vol]5.0 10*3/uL3.8-11.6FVeterans Health AdministrationActivated partial thromboplastin time (aPTT) in platelet poor plasma by coagulation aOrdered By: Jean Jett on 28-01-8798yKOV Coag (PPP) [Time]29.8 s25.1-36.5FVeterans Health AdministrationAnisocytosis LM Ql (Bld) Ordered By: Jean Jett on 57-06-9762Zutpquaknuec Ql (Bld)[facility] Medical CenterBasophils Auto (Bld) [#/Vol]Ordered By: Jean Jett on 96-92-0360Tezdnavov (Bld) [#/Vol]0.1 10*3/uL0.0-0.2FVeterans Health AdministrationBasophils/100 WBC Auto (Bld)Ordered By: Jean Jett on 06-10-2022 Basophils/100 WBC (Bld)1.8 %.[facility] HospitalBilirubin Test strip Ql (U)Ordered By: Jean Jett on 38-24-8526Qzbllczfp Ql (U)Negative NegativeMercy Health Allen HospitalCT biopsyOrdered By: Jean Jett on 27-32-5153Cmznsbxjfzj [Mass/Vol]380 mg/kK762-318DojnhbpppMercy Health Allen HospitalCalcium [Mass/volume] in Serum or PlasmaOrdered By: Jean Jett on 90-02-8912Blctrbx [Mass/Vol]8.6 mg/dL8.2-10.2FVeterans Health Administration Carbon dioxide, total [Moles/volume] in Serum or PlasmaOrdered By: Jean Jett on 31-84-4829PA0 [Moles/Vol]23.3 mmol/L22.0-30.0[facility] HospitalChloride [Moles/volume] in Serum or PlasmaOrdered By: Jean Jett on 60-63-0154Kpzexxzk [Moles/Vol]106 mmol/U18-248TghnyrqoqMercy Health Allen Hospital Color Auto (U)Ordered By: Jean Jett on 02-11-3164Xtzdr (U)YellowYellow [facility] HospitalCreatine kinase [Enzymatic activity/volume] in Serum or PlasmaOrdered By: Jean Jett on 33-19-5748TL [Catalytic activity/Vol] 100 U/X42-860JfzwxqrqkMercy Health Allen HospitalCreatinine and Glomerular filtration rate.predicted panel (S/P/Bld)Ordered By: Jean Jett on 06-10-2022 Creatinine [Mass/Vol]0.71 mg/dL0.44-1.03[facility] Eosinophils Auto (Bld) [#/Vol]Ordered By: Jean Jett on 40-42-6786Munhegilftd (Bld) [#/Vol]0.3 10*3/uL0.0-0.45[facility] HospitalEosinophils/100 WBC Auto (Bld)Ordered By: Jean Jett on 52-81-4473Leirprjjdbt/100 WBC (Bld) 5.0 %.[facility] HospitalErythrocyte distribution width Auto (RBC) [Ratio]Ordered By: Jean Jett on 23-57-6577Dafcmrytmlc distribution width (RBC) [Ratio]24.6 %11.9-15.3FVeterans Health AdministrationEstimated glomerular filtration rate (GFR) non- AmericanOrdered By: Jean Jett on 08-44-3959HVW/1.73 sq M.predicted among non-blacks MDRD (S/P/Bld) [Vol rate/Area]> 60 mL/MinMercy Health Allen HospitalFecal occult blood detection by immunochemistryOrdered By: Jean Jett on 06-10-2022 Hemoglobin.gastrointestinal Ql (Stl)[facility] HospitalGlucose [Mass/volume] in Serum or PlasmaOrdered By: Jean Jett on 35-59-5932Ekhseby [Mass/Vol]94 mg/mD86-907RennnqltnMercy Health Allen HospitalComment on above:ADA recommended reference rangeRandom Glucose Reference Range is dependent on time and content of last meal. Glucose of more than 200 mg/dL in a nonstressed, ambulatory subject supports the diagnosisof Diabetes Mellitus.HCG ( test) IA.rapid Ql (U)Ordered By: Jean Jett on 35-13-5742QZD ( test) Ql (U)NegativeMercy Health Allen HospitalHematocrit Auto (Bld) [Volume fraction]Ordered By: Jean Jett on 45-94-9667Scxaoeoqfw (Bld) [Volume fraction]23.8 %34.0-46.4FVeterans Health AdministrationHemoglobin [Mass/volume] in BloodOrdered By: Jean Jett on 30-36-9308Ukvpiphfmm (Bld) [Mass/Vol]7.3 g/dL11.8-15.4FVeterans Health AdministrationHypochromia LM Ql (Bld)Ordered By: Jean Jett on 09-73-5013Bjalrptccyr Ql (Bld)MarkedMercy Health Allen HospitalIron [Mass/volume] in Serum or PlasmaOrdered By: Jean Jett on 46-41-4426Amkr [Mass/Vol]25 ug/yA82-126DzwapjalqMercy Health Allen HospitalIron binding capacity [Mass/volume] in Serum or PlasmaOrdered By: Jean Jett on 41-29-1154Pmto binding capacity [Mass/Vol]532 ug/vC063-249QdvqrnbsjMercy Health Allen HospitalIron saturation [Mass Fraction] in Serum or PlasmaOrdered By: Jean Jett on 56-45-1487Zbnz saturation [Mass fraction]4.7 %20-50[facility] HospitalKetones Auto test strip (U) [Mass/Vol]Ordered By: Jean Jett on 36-22-9625Achdapm (U) [Mass/Vol]NegativeNegativeMercy Health Allen HospitalLaboratory - Chemistry and Chemistry - challengeOrdered By: Jean Jett on 23-56-0345Neecczvbz [Mass/Vol]1.9 mg/dL1.6-2.6FVeterans Health AdministrationNatriuretic peptide B (Bld) [Mass/Vol]23.0 pg/mL5-100Mer[facility] HospitalLaboratory - CoagulationOrdered By: Jean Jett on 24-68-5353ML Coag (PPP) [Time]12.9 s9.0-12.9[facility] Leukocytes [#/volume] corrected for nucleated erythrocytes in Blood by Automated counOrdered By: Jean Jett on 09-83-2756QAW corrected for nucl RBC Auto (Bld) [#/Vol]5.3 10*3/uL3.8-11.6FVeterans Health AdministrationLymphocytes Auto (Bld) [#/Vol]Ordered By: Jean Jett on 94-53-5794Bvmbrvpobnv (Bld) [#/Vol]2.2 10*3/uL1.00-4.8[facility] HospitalLymphocytes/100 WBC Auto (Bld) Ordered By: Jean Jett on 26-24-0205Dsotmcmlmys/100 WBC (Bld)41.3 %.[facility] HospitalMCH Auto (RBC) [Entitic mass]Ordered By: Jean Jett on 29-05-3656OXV (RBC) [Entitic mass]19.7 pg24.7-34.3FVeterans Health AdministrationMCHC Auto (RBC) [Mass/Vol]Ordered By: Jean Jett on 05-00-8509QZIT (RBC) [Mass/Vol]30.6 g/dL32.0-35.0[facility] HospitalMCV Auto (RBC) [Entitic vol]Ordered By: Jean Jett on 85-34-1384VRR (RBC) [Entitic vol]64.5 nM91-659GufzhjlujMercy Health Allen HospitalMicrocytes LM Ql (Bld)Ordered By: Jean Jett on 10-49-0283Mkwqtvfmbl Ql (Bld)MarkedMercy Health Allen HospitalMonocyte distribution width [Entitic volume] in Blood by AutomatedOrdered By: Jean Jett on 71-83-5663Qhxcttbm distribution width Auto (Bld) [Entitic vol]17.54 %0.00-20.00[facility] HospitalMonocytes Auto (Bld) [#/Vol]Ordered By: Jean Jett on 50-39-0237Coaunzhwy (Bld) [#/Vol]0.4 10*3/uL 0.0-0.8[facility] HospitalMonocytes/100 WBC Auto (Bld)Ordered By: Jean Jett on 31-13-3936Hzhddlsgq/100 WBC (Bld)6.8 %.[facility] HospitalNeutrophils Auto (Bld) [#/Vol]Ordered By: Jean Jett on 64-38-6193Ylohbarxmoo (Bld) [#/Vol]2.4 10*3/uL1.8-7.7FVeterans Health AdministrationNeutrophils/100 WBC Auto (Bld)Ordered By: Jean Jett on 06-10-2022 Neutrophils/100 WBC (Bld)45.1 %.[facility] HospitalNitrite Test strip Ql (U)Ordered By: Jean Jett on 83-92-1123Ejijwhz Ql (U)NegativeNegative [facility] HospitalNo Panel InformationOrdered By: Jean Jett on 97-99-3951Lhtrwmasj GFR ()> 60 mL/MinMercy Health Allen HospitalComment on above:GFR estimated reference range: According to KDOQI guidelines, <60 ml/min/1.73m2 is sufficient todiagnose a patient with chronic kidney disease.Pharmacy Creatinine Clearance (Ysvl894.49[facility] HospitalNucleated erythrocytes [Presence] in Blood by Automated count Ordered By: Jean Jett on 32-30-1353Pgmtamhvx RBC Auto Ql (Bld)0.1 /100{WBC} 0-0.5FVeterans Health AdministrationOvalocyte detectionOrdered By: Jean Jett on 49-17-8304Ykstynzbls LM Ql (Bld)SlightMercy Health Allen Hospital Platelet adequacy [Presence] in Blood by Light microscopyOrdered By: Jean Jett on 99-30-7817Xqsdnplsb LM Ql (Bld)NormalNormOhioHealth Marion General HospitalPlatelet mean volume Auto (Bld) [Entitic vol]Ordered By: Jean Jett on 80-61-2697Wabewpwp mean volume (Bld) [Entitic vol]8.3 fL6.3-10.7FVeterans Health AdministrationPlatelet morphology finding [Identifier] in BloodOrdered By: Jean Jett on 59-67-3009Czalmvxd morphology finding Nom (Bld)NormalNormal [facility] HospitalPlatelet poor plasma international normalized ratio (INR) by coagulation assay (relatOrdered By: Jean Jett on 60-09-3594UUJ Coag (PPP) [Relative time]1.1 {INR}[facility] HospitalComment on above:INR Therapeutic Range A) Pre- [...] Auto (Bld) [#/Vol]Ordered By: Jean Jett on 51-07-4328Kjmqabtan (Bld) [#/Vol]202 10*3/qJ715-949FdwybjvrqMercy Health Allen HospitalPoikilocytosis [Presence] in Blood by Light microscopyOrdered By: Jean Jett on 25-49-4359Preiojpqokruyp LM Ql (Bld)[facility] TroyPolychromasia [Presence] in Blood by Light microscopyOrdered By: Jean Jett on 73-35-7023Twyjvcjwpjnbb LM Ql (Bld)[facility] TroyPotassium [Moles/volume] in Serum or PlasmaOrdered By: Jean Jett on 34-67-4401Xnkijxzla [Moles/Vol]4.1 mmol/L3.5-5.1FVeterans Health AdministrationProtein Auto test strip (U) [Mass/Vol]Ordered By: Jean Jett on 57-01-0207Szmsgft (U) [Mass/Vol]NegativeNegativeMercy Health Allen HospitalRBC Auto (Bld) [#/Vol]Ordered By: Jean Jett on 64-00-2883JUT (Bld) [#/Vol]3.69 10*6/uL3.60-5.00[facility] morphology Ordered By: Jean Jett on 13-66-9454DUW morphology finding Nom (Bld)N/A [facility] Centererum or plasma anion gap determinationOrdered By: Jean Jett on 73-55-8798Zsbnd gap [Moles/Vol]10.8 mmol/L6.0-15.0[facility] Centerodium [Moles/volume] in Serum or PlasmaOrdered By: Jean Jett on 20-91-9501Zkwwtj [Moles/Vol]136 mmol/R601-875WucpbaecbLouis Stokes Cleveland VA Medical Centerpecific gravity Auto test strip (U) [Rel density]Ordered By: Jean Jett on 33-52-0095Msgagujy gravity (U) [Rel density]1.0101.001-1.030 [facility] HospitalTarget cellsOrdered By: Jean Jett on 84-43-4957Vlpzxo cells LM Ql (Bld)[facility] Teardrop cell detectionOrdered By: Jean Jett on 57-99-0965Fjcrinpmhr LM Ql (Bld)[facility] TroyTroponin I.cardiac [Mass/volume] in Serum or Plasma by High sensitivity methodOrdered By: Jean Jett on 06-10-2022 Troponin I.cardiac High sensitivity method [Mass/Vol]< 3 pg/mL0-15[facility] HospitalUrea nitrogen [Mass/volume] in Serum or PlasmaOrdered By: Jean Jett on 03-34-0997Lake nitrogen [Mass/Vol]9 mg/dL9[facility] HospitalUrine clarity by refractometry automatedOrdered By: Jean Jett on 53-05-6616Xegcqlf Refractometry automated (U)ClearClearFVeterans Health AdministrationUrine glucose measurement by automated test strip (mass/volume) Ordered By: Jean Jett on 56-76-0672Ymjgtkc Auto test strip (U) [Mass/Vol] Normal mg/dLNoSt. Vincent HospitalUrine hemoglobin detection by automated test stripOrdered By: Jean Jett on 17-50-6422Kthrxqgfut Auto test strip Ql (U)NegativeNegSelect Medical Specialty Hospital - ColumbusUrine leukocyte esterase detection by automated test stripOrdered By: Jean Jett on 06-10-2022 Leukocyte esterase Auto test strip Ql (U)NegativeNegSelect Medical Specialty Hospital - ColumbusUrobilinogen Auto test strip (U) [Mass/Vol]Ordered By: Jean Jett on 01-16-1665Reibxffamlsl (U) [Mass/Vol]Normal mg/dLNoSt. Vincent HospitalWBC Auto (Bld) [#/Vol]Ordered By: Jean Jett on 46-12-3416DPL (Bld) [#/Vol]5.3 10*3/uL3.8-11.6FVeterans Health Administration pH Auto test strip (U)Ordered By: Jean Jett on 72-87-3408nX (U)5.5 [pH] 5.0-9.0[facility] HospitalAlkaline phosphatase [Enzymatic activity/volume] in Serum or PlasmaOrdered By: Julieta Jefferson on 92-39-0325VKN [Catalytic activity/Vol]39 U/C47-70KbkpqzusjMercy Health Allen HospitalAnisocytosis LM Ql (Bld)Ordered By: Julieta Jefferson on 04-08-8337Hrgmqgivwdff Ql (Bld)Marked [facility] HospitalAspartate aminotransferase [Enzymatic activity/volume] in Serum or PlasmaOrdered By: Julieta Jefferson on 06-28-6076ZNH [Catalytic activity/Vol]15 U/G73-81LdrfhfjoxMercy Health Allen HospitalBasophils Auto (Bld) [#/Vol]Ordered By: Julieta Jefferson on 21-37-6826Jqdducjhd (Bld) [#/Vol] 0.1 10*3/uL0.0-0.2FVeterans Health AdministrationBasophils/100 WBC Auto (Bld) Ordered By: Julieta Jefferson on 39-41-7045Vsybhvlcg/100 WBC (Bld)1.4 %.[facility] HospitalBody fluid albumin measurement (mass/volume)Ordered By: Julieta Jefferson on 36-58-2047Gvbfsju (Body fld) [Mass/Vol]4.1 g/dL3.2-5.5FVeterans Health AdministrationCalcium [Mass/volume] in Serum or PlasmaOrdered By: Julieta Jefferson on 60-75-0097Iczbmub [Mass/Vol]9.0 mg/dL8.2-10.2FVeterans Health AdministrationCarbon dioxide, total [Moles/volume] in Serum or PlasmaOrdered By: Julieta Jefferson on 19-59-3670OJ7 [Moles/Vol]23.3 mmol/L22.0-30.0[facility] HospitalCholesterol [Mass/volume] in Serum or PlasmaOrdered By: Julieta Jefferson on 85-52-6063Iauyufzxkcb [Mass/Vol]137 mg/kZ478-040CqpkbgbnjMercy Health Allen HospitalComment on above:Chol less than 200 mg/dl low riskChol 201-239 mg/dl borderline riskChol 240 mg/dl and greater high riskCholesterol in LDL Calc [Mass/Vol]Ordered By: Julieta Jefferson on 24-19-8280Gniaokcccpu in LDL [Mass/Vol]72 mg/dL0-100[facility] HospitalComment on above:LDL ATP III CLASSIFICATIONLDL less than 100 mg/dL OptimalLDL 100-129 mg/dL Near or above nhandqsXFH805-157 mg/dL Borderline highLDL 160-189 mg/dL HighLDL greater than 189 mg/dL Very highCholesterol in VLDL Calc [Mass/Vol]Ordered By: Julieta Jefferson on 18-60-1331Jziqzrzxqkr in VLDL [Mass/Vol]9 mg/dLMercy Health Allen HospitalCreatinine and Glomerular filtration rate.predicted panel (S/P/Bld)Ordered By: Julieta Jefferson on 24-99-3968Eaidkostqg [Mass/Vol]0.59 mg/dL0.44-1.03[facility] HospitalEosinophils Auto (Bld) [#/Vol]Ordered By: Julieta Jefferson on 19-43-2749Jimnndmpgse (Bld) [#/Vol]0.3 10*3/uL0.0-0.45[facility] HospitalEosinophils/100 WBC Auto (Bld)Ordered By: Julieta Jefferson on 06-09-2022 Eosinophils/100 WBC (Bld)6.8 %.[facility] HospitalErythrocyte distribution width Auto (RBC) [Ratio]Ordered By: Julieta Jefferson on 06-09-2022 Erythrocyte distribution width (RBC) [Ratio]24.5 %11.9-15.3FVeterans Health AdministrationEstimated glomerular filtration rate (GFR) non- Ordered By: Julieta Jefferson on 57-45-2729AVP/1.73 sq M.predicted among non-blacks MDRD (S/P/Bld) [Vol rate/Area]> 60 mL/MinMercy Health Allen Hospital Globulin Calc (S) [Mass/Vol]Ordered By: Julieta Jefferson on 14-54-5730Zbasnyvo (S) [Mass/Vol]2.3 g/dLMercy Health Allen HospitalGlucose mean value [Mass/volume] in Blood Estimated from glycated hemoglobinOrdered By: Julieta Jefferson on 62-64-2251Rjfwtjv glucose Estimated from glycated hemoglobin (Bld) [Mass/Vol]97 mg/dLMercy Health Allen HospitalHematocrit Auto (Bld) [Volume fraction]Ordered By: Julieta Jefferson on 40-81-1149Rsiiikpjfm (Bld) [Volume fraction]26.0 %34.0-46.4FVeterans Health AdministrationHemoglobin A1c percentageOrdered By: Julieta Jefferson on 43-09-1715KbH4h (Bld) [Mass fraction]5.0 % 4.3-5.6FVeterans Health AdministrationComment on above:Increased risk for diabetes: 5.7 - 6.4diabetes: >6.4glycemic control for adults with diabetes: &l t;7.0Hemoglobin [Mass/volume] in BloodOrdered By: Julieta Jefferson on 06-09-2022 Hemoglobin (Bld) [Mass/Vol]7.8 g/dL11.8-15.4FVeterans Health Administration Hypochromia LM Ql (Bld)Ordered By: Julieta Jefferson on 12-70-8275Eqqxcaipkal Ql (Bld) ModerateMercy Health Allen HospitalLeukocytes [#/volume] corrected for nucleated erythrocytes in Blood by Automated counOrdered By: Julieta Jefferson on 95-62-1719TTE corrected for nucl RBC Auto (Bld) [#/Vol]4.6 10*3/uL3.8-11.6 [facility] HospitalLymphocytes Auto (Bld) [#/Vol]Ordered By: Julieta Jefferson on 63-28-3812Xjmandyzecp (Bld) [#/Vol]2.0 10*3/uL1.00-4.8[facility] HospitalLymphocytes/100 WBC Auto (Bld)Ordered By: Julieta Jefferson on 01-40-6277Enozdowylft/100 WBC (Bld)44.2 %.[facility] HospitalMCH Auto (RBC) [Entitic mass]Ordered By: Julieta Jefferson on 11-67-6353KHJ (RBC) [Entitic mass]19.7 pg24.7-34.3FVeterans Health AdministrationMCHC Auto (RBC) [Mass/Vol]Ordered By: Julieta Jefferson on 14-28-6572ODID (RBC) [Mass/Vol]30.2 g/dL 32.0-35.0[facility] HospitalMCV Auto (RBC) [Entitic vol]Ordered By: Julieta Jefferson on 07-32-8721SDY (RBC) [Entitic vol]65.3 kJ77-568HjtowykpbMercy Health Allen HospitalMicrocytes LM Ql (Bld)Ordered By: Julieta Jefferson on 84-89-9473Acwadbpmnr Ql (Bld)MarkedMercy Health Allen HospitalMonocytes Auto (Bld) [#/Vol]Ordered By: Julieta Jefferson on 31-56-3542Cqkzzrmwp (Bld) [#/Vol] 0.4 10*3/uL0.0-0.8[facility] HospitalMonocytes/100 WBC Auto (Bld) Ordered By: Julieta Jefferson on 16-13-6413Adsvshtjs/100 WBC (Bld)8.9 %.[facility] HospitalNeutrophils Auto (Bld) [#/Vol]Ordered By: Julieta Jefferson on 21-17-7541Wyzwjdevkel (Bld) [#/Vol]1.8 10*3/uL1.8-7.7FVeterans Health AdministrationNeutrophils/100 WBC Auto (Bld)Ordered By: Julieta Jefferson on 06-09-2022 Neutrophils/100 WBC (Bld)38.7 %.[facility] HospitalNo Panel InformationOrdered By: Julieta Jefferson on 48-30-4270Brunphmdi GFR () > 60 mL/MinMercy Health Allen HospitalComment on above:GFR estimated reference range: According to KDOQI guidelines, <60 ml/min/1.73m2 is sufficient todiagnose a patient with chronic kidney disease.Pharmacy Creatinine Clearance (ChemN/[facility] HospitalNucleated erythrocytes [Presence] in Blood by Automated countOrdered By: Julieta Jefferson on 39-20-4777Ntzotmqew RBC Auto Ql (Bld)0.1 /100{WBC}0-0.5FVeterans Health AdministrationPlatelet adequacy [Presence] in Blood by Light microscopyOrdered By: Julieta Jefferson on 06-09-2022 Platelets LM Ql (Bld)NormalPremier Health Miami Valley HospitalPlatelet mean volume Auto (Bld) [Entitic vol]Ordered By: Julieta Jefferson on 87-10-0997Jjqefbeq mean volume (Bld) [Entitic vol]8.2 fL6.3-10.7FVeterans Health Administration Platelet morphology finding [Identifier] in BloodOrdered By: Julieta Jefferson on 39-98-6857Qslhczzx morphology finding Nom (Bld)NormalNoSt. Vincent HospitalPlatelets Auto (Bld) [#/Vol]Ordered By: Julieta Jefferson on 06-09-2022 Platelets (Bld) [#/Vol]200 10*3/xI792-421SykmwgbzvMercy Health Allen Hospital Poikilocytosis [Presence] in Blood by Light microscopyOrdered By: Julieta Jefferson on 65-29-0333Udstawhmqddqcf LM Ql (Bld)[facility] Polychromasia [Presence] in Blood by Light microscopyOrdered By: Julieta Jefferson on 14-75-9903Ccwhxzfacagbn LM Ql (Bld)ModerateMercy Health Allen Hospital Protein [Mass/volume] in Serum or PlasmaOrdered By: Julieta Jefferson on 06-09-2022 Protein [Mass/Vol]6.4 g/dL6.1-7.9[facility] HospitalRB Auto (Bld) [#/Vol]Ordered By: Julieta Jefferson on 82-68-4490JND (Bld) [#/Vol]3.97 10*6/uL 3.60-5.00[facility] HospitalRB morphologyOrdered By: Julieta Jefferson on 13-06-8215LFW morphology finding Nom (Bld)N/AFGlenbeigh Hospitalchistocytes [Presence] in Blood by Light microscopyOrdered By: Julieta Jefferson on 80-16-5207Pmwtygtxdlky LM Ql (Bld)[facility] Hospitalerum or plasma alanine aminotransferase measurement without P-5'-P (enzymatic activiOrdered By: Julieta Jefferson on 67-59-8145QBO No additional P-5'-P [Catalytic activity/Vol]14 U/K40-99QwaimerryLouis Stokes Cleveland VA Medical Centererum or plasma albumin/globulin mass ratioOrdered By: Julieta Jefferson on 06-09-2022 Albumin/Globulin [Mass ratio]1.8 {ratio}[facility] Centererum or plasma anion gap determinationOrdered By: Julieta Jefferson on 79-14-8364Yyfcg gap [Moles/Vol]11.5 mmol/L6.0-15.0[facility] Centererum or plasma calcitriol measurement (mass/volume)Ordered By: Julieta Jefferson on ,25- dihydroxyvitamin D3 [Mass/Vol]60.5 pg/mL24.8-81.5FVeterans Health AdministrationComment on above:Performed at: - Lab[address] [id number] Director: Jon Horton MD, Phone: [phone] or plasma chloride measurement (moles/volume)Ordered By: Julieta Jefferson on 26-51-2312Aummmxpk [Moles/Vol]106 mmol/Y67-038DyikkykrxMercy Health Allen Hospital Serum or plasma glucose measurement (mass/volume)Ordered By: Julieta Jefferson on 75-61-2008Vfeppid [Mass/Vol]78 mg/bX54-025MwxnbyivnMercy Health Allen Hospital Comment on above:ADA recommended reference rangeRandom Glucose Reference Range is dependent on time and content of last meal. Glucose of more than 200 mg/dL in a nonstressed, ambulatory subject supports the diagnosisof Diabetes Mellitus. Serum or plasma high density lipoprotein (HDL) cholesterol measurementOrdered By: Julieta Jefferson on 28-98-1580Oqibqiqsftx in HDL [Mass/Vol]56 mg/jV69-51FfpnqugbzMercy Health Allen HospitalComment on above:HDL CHOL ATP-III CLASSIFICATION Cardiovascular RiskHDL > or equal to 60 mg/dL LOWHDL < 40 mg/dL HIGHSerum or plasma potassium measurement (moles/volume)Ordered By: Julieta Jefferson on 06-09-2022 Potassium [Moles/Vol]3.8 mmol/L3.5-5.1FGlenbeigh Hospitalerum or plasma sodium measurement (moles/volume)Ordered By: Julieta Jefferson on 06-09-2022 Sodium [Moles/Vol]137 mmol/B377-266BpnyghhvxLouis Stokes Cleveland VA Medical Centererum or plasma total bilirubin measurement (mass/volume)Ordered By: Julieta Jefferson on 68-80-4477Zjnhvmeme [Mass/Vol]0.3 mg/dL0.3-1.2FVeterans Health Administration Serum or plasma total cholesterol/high density lipoprotein (HDL) cholesterol mass ratOrdered By: Julieta Jefferson on 53-84-9779Cozungjqyof.total/Cholesterol in HDL [Mass ratio]2.4 {ratio}<5.0[facility] DL <= 0.005 mIU/L QnOrdered By: Julieta Jefferson on 15-20-9607HJV Qn4.10 m[IU]/L0.45-5.33 [facility] HospitalTeardrop cell detectionOrdered By: Julieta Jefferson on 64-16-7466Szvdemetsn LM Ql (Bld)SlightMercy Health Allen Hospital Triglyceride [Mass/volume] in Serum or PlasmaOrdered By: Julieta Jefferson on 02-86-4246Bznihoujeufn [Mass/Vol]45 mg/fE25-127OlkeztomcMercy Health Allen Hospital Comment on above:TRIG ATP III CLASSIFICATIONTRIG less than 150 mg/dL NormalTRIG 150-199 mg/dL Borderline highTRIG 200-500 mg/dL High TRIG greater than 500 mg/dL Very highStandard traceable to the Center for Disease Conrtrol and Prevention (CDC) test method.Urea nitrogen [Mass/volume] in Serum or PlasmaOrdered By: Julieta Jefferson on 24-51-9186Shps nitrogen [Mass/Vol]6 mg/dL9-[facility] HospitalWBC Auto (Bld) [#/Vol]Ordered By: Julieta Li on 11-61-8206VGP (Bld) [#/Vol]4.6 10*3/uL3.8-11.6FVeterans Health AdministrationUrine 10 SGon 60-85-4585Htylozt DL <= 20 mg/L (U) [Mass/Vol]NegativeNortTrendslide Other pH (U)7.0 [pH][facility] Other urine 10 SGNegativeKidizen Other Urine 10 SG1.020NoKidizen Other urine 10 SGlargeNoKidizen Other Urine Cultureon 53-48-3113Soaeutli identified Cx Nom (U)[facility] Other urine culture routineOrdered By: Amanda Ford on 55-11-1727Gjpthaeb identified Cx Nom (U)2 DaysMercy Health Allen HospitalActivated partial thromboplastin time (aPTT) in platelet poor plasma by coagulation aOrdered By: Phu Hdz on 48-59-5739sJUM Coag (PPP) [Time] 30.4 s25.1-36.5FVeterans Health AdministrationAutomated erythrocytes count in urine sediment (number/area)Ordered By: Jean Jett on 20-01-9901GAP Auto (Urine sed) [#/Area]Innumerable [HPF]0-4FVeterans Health Administration Automated leukocytes count in urine sediment (number/area)Ordered By: Jean Jett on 88-09-4139UII Auto (Urine sed) [#/Area]3-4 [HPF]0-4FVeterans Health AdministrationAutomated urine sediment calcium oxalate crystal count by microscopy (number/high powOrdered By: Jean Jett on 52-89-6724Ukrgqgb oxalate crystals LM.HPF (Urine sed) [#/Area]1+ [HPF][facility] Basophils Auto (Bld) [#/Vol]Ordered By: Jean Jett on 91-45-8968Gnpsrwsem (Bld) [#/Vol]0.0 10*3/uL0.0-0.2FVeterans Health AdministrationBasophils/100 WBC Auto (Bld)Ordered By: Jean Jett on 08-34-7047Siixxphqg/100 WBC (Bld)0.5 % .[facility] HospitalBilirubin Test strip Ql (U)Ordered By: Jean Jett on 44-63-6743Ciwabxfzs Ql (U)1+NegativeMercy Health Allen Hospital Casts typing in urine sediment by light microscopyOrdered By: Jean Jett on 81-82-1997Osinu LM Nom (Urine sed)None seen [LPF]None SeenMercy Health Allen HospitalColor Auto (U)Ordered By: Jean Jett on 47-83-0946Rtkzw (U)Red YellowMercy Health Allen HospitalCreatinine and Glomerular filtration rate.predicted panel (S/P/Bld)Ordered By: Jean Jett on 52-80-2296Ubnvwhdcvx [Mass/Vol]0.68 mg/dL0.44-1.03[facility] HospitalEosinophils Auto (Bld) [#/Vol]Ordered By: Jean Jett on 19-14-2439Izubimfxmrr (Bld) [#/Vol]0.2 10*3/uL0.0-0.45[facility] HospitalEosinophils/100 WBC Auto (Bld) Ordered By: Jean Jett on 17-51-3132Cjtdoblrpxo/100 WBC (Bld)2.1 %.[facility] HospitalErythrocyte distribution width Auto (RBC) [Ratio]Ordered By: Jean Jett on 09-12-4114Vrlgrdolowe distribution width (RBC) [Ratio]14.3 % 11.9-15.3FVeterans Health AdministrationEstimated glomerular filtration rate (GFR) non- AmericanOrdered By: Jean Jett on 48-49-5188KKP/1.73 sq M.predicted among non-blacks MDRD (S/P/Bld) [Vol rate/Area]> 60 mL/MinMercy Health Allen HospitalHCG ( test) IA.rapid Ql (U)Ordered By: Jean Jett on 96-43-9792BWX ( test) Ql (U)NegativeMercy Health Allen HospitalHematocrit Auto (Bld) [Volume fraction]Ordered By: Jean Jett on 57-01-9881Gqijyrgaqy (Bld) [Volume fraction]29.4 %34.0-46.4FVeterans Health AdministrationHemoglobin [Mass/volume] in BloodOrdered By: Jean Jett on 43-86-9170Ilqnucefpt (Bld) [Mass/Vol]9.9 g/dL11.8-15.4FVeterans Health AdministrationKetones Auto test strip (U) [Mass/Vol]Ordered By: Jean Jett on 73-83-3441Rabknpx (U) [Mass/Vol]NegativeNegativeMercy Health Allen HospitalLaboratory - CoagulationOrdered By: Phu Hdz on 29-78-6956FJ Coag (PPP) [Time]12.4 s9.0-12.9[facility] HospitalLaboratory - UrinalysisOrdered By: Jean Jett on 34-48-6282Lsyfjye casts LM Ql (Urine sed) None seen [LPF]0-8[facility] HospitalLeukocytes [#/volume] corrected for nucleated erythrocytes in Blood by Automated counOrdered By: Jean Jett on 99-63-8347WFB corrected for nucl RBC Auto (Bld) [#/Vol]8.5 10*3/uL3.8-11.6FVeterans Health AdministrationLymphocytes Auto (Bld) [#/Vol] Ordered By: Jean Jett on 58-21-5239Ndmziiopfkj (Bld) [#/Vol]2.1 10*3/uL 1.00-4.8[facility] HospitalLymphocytes/100 WBC Auto (Bld)Ordered By: Jean Jett on 27-37-4049Xwkizlnhzzm/100 WBC (Bld)25.2 %.[facility] CenterH Auto (RBC) [Entitic mass]Ordered By: Jean Jett on 05-30-0155XOA (RBC) [Entitic mass]28.8 pg24.7-34.3FVeterans Health AdministrationMCHC Auto (RBC) [Mass/Vol]Ordered By: Jean Jett on 16-72-6738ZKVI (RBC) [Mass/Vol]33.6 g/dL32.0-35.0[facility] HospitalMCV Auto (RBC) [Entitic vol]Ordered By: Jean Jett on 71-28-8926WFA (RBC) [Entitic vol]85.7 cU40-275KysdwjyzaMercy Health Allen HospitalMonocyte distribution width [Entitic volume] in Blood by AutomatedOrdered By: Jean Jett on 59-05-8778Xmppzpud distribution width Auto (Bld) [Entitic vol]14.20 %0.00-20.00[facility] HospitalMonocytes Auto (Bld) [#/Vol]Ordered By: Jean Jett on 04-10-2022 Monocytes (Bld) [#/Vol]0.5 10*3/uL0.0-0.8[facility] Monocytes/100 WBC Auto (Bld)Ordered By: Jean Jett on 37-64-7776Zwyiaqogj/100 WBC (Bld)5.7 %.[facility] HospitalNeutrophils Auto (Bld) [#/Vol] Ordered By: Jean Jett on 12-03-4591Chnfiescgiw (Bld) [#/Vol]5.6 10*3/uL 1.8-7.7FVeterans Health AdministrationNeutrophils/100 WBC Auto (Bld)Ordered By: Jean Jett on 84-74-7073Epcgmtrleqf/100 WBC (Bld)66.5 %.[facility] HospitalNitrite Test strip Ql (U)Ordered By: Jean Jett on 04-10-2022 Nitrite Ql (U)PositiveNegativeMercy Health Allen HospitalNo Panel InformationOrdered By: Jean Jett on 76-29-2224Cnxvmjfhp GFR ()> 60 mL/MinMercy Health Allen HospitalComment on above:GFR estimated reference range: According to KDOQI guidelines, <60 ml/min/1.73m2 is sufficient todiagnose a patient with chronic kidney disease.Pharmacy Creatinine Clearance (Xkup121.39[facility] HospitalNucleated erythrocytes [Presence] in Blood by Automated countOrdered By: Jean eJtt on 04-10-2022 Nucleated RBC Auto Ql (Bld)0.0 /100{WBC}0-0.5FVeterans Health Administration Platelet mean volume Auto (Bld) [Entitic vol]Ordered By: Jean Jett on 08-19-2788Wqwiiuud mean volume (Bld) [Entitic vol]6.9 fL6.3-10.7FVeterans Health AdministrationPlatelet poor plasma international normalized ratio (INR) by coagulation assay (relatOrdered By: Phu Hdz on 74-46-6296RUR Coag (PPP) [Relative time]1.1 {INR}[facility] HospitalComment on above: INR Therapeutic Range A) [...] Auto (Bld) [#/Vol]Ordered By: Jean Jett on 26-15-7957Pjmosgaxp (Bld) [#/Vol]263 10*3/dO381-104JetyaclhcMercy Health Allen HospitalProtein Auto test strip (U) [Mass/Vol]Ordered By: Jean Jett on 13-73-3136Lopgctm (U) [Mass/Vol]100 mg/dLNegativeMercy Health Allen HospitalRBC Auto (Bld) [#/Vol]Ordered By: Jean Jett on 05-82-1363BSG (Bld) [#/Vol]3.43 10*6/uL 3.60-5.00[facility] Centererum or plasma anion gap determinationOrdered By: Jean Jett on 79-10-2514Kdvxl gap [Moles/Vol]8.5 mmol/L6.0-15.0[facility] Centererum or plasma calcium measurement (mass/volume)Ordered By: Jean Jett on 03-21-5139Meipqbj [Mass/Vol]8.6 mg/dL8.2-10.2FGlenbeigh Hospitalerum or plasma chloride measurement (moles/volume)Ordered By: Jean Jett on 04-10-2022 Chloride [Moles/Vol]106 mmol/H09-129JhphxhucnLouis Stokes Cleveland VA Medical Centererum or plasma glucose measurement (mass/volume)Ordered By: Jean Jett on 04-10-2022 Glucose [Mass/Vol]99 mg/uW08-458LwuseclbmMercy Health Allen HospitalComment on above:ADA recommended reference rangeRandom Glucose Reference Range is dependent on time and content of last meal. Glucose of more than 200 mg/dL in a nonstressed, ambulatory subject supports the diagnosisof Diabetes Mellitus.Serum or plasma potassium measurement (moles/volume)Ordered By: Jean Jett on 37-60-7241Rwxjvgppx [Moles/Vol]3.6 mmol/L3.5-5.1FGlenbeigh Hospitalerum or plasma sodium measurement (moles/volume)Ordered By: Jean Jett on 61-63-1028Qeuyfa [Moles/Vol]138 mmol/P872-829RrywlcwqfLouis Stokes Cleveland VA Medical Centererum or plasma total carbon dioxide measurement (moles/volume)Ordered By: Jean Jett on 37-18-5341EO3 [Moles/Vol]27.1 mmol/L22.0-30.0[facility] Centererum or plasma urea nitrogen measurement (mass/volume)Ordered By: Jean Jett on 79-46-2684Lwlj nitrogen [Mass/Vol]5 mg/dL9-23[facility] Medical Centerpecific gravity Auto test strip (U) [Rel density]Ordered By: Jean Jett on 51-03-0855Czwhxesq gravity (U) [Rel density]1.0331.001-1.030 [facility] Medical Centerquamous epithelial cells detection in urine sediment by light microscopyOrdered By: Jean Jett on 84-32-0872Okjyxwpjkg cells.squamous LM Ql (Urine sed)3-4 [HPF]0-2FVeterans Health Administration Urine bacteria detection by automated methodOrdered By: Jean Jett on 38-23-4723Lzjhmdxb Auto Ql (U)None seenNone SeenMercy Health Allen HospitalUrine clarity by refractometry automatedOrdered By: Jean Jett on 51-42-3459Xoruxsz Refractometry automated (U)TurbidClearFVeterans Health AdministrationUrine culture routineOrdered By: Jean Jett on 04-10-2022 Bacteria identified Cx Nom (U)2 DaysMercy Health Allen HospitalUrine glucose measurement by automated test strip (mass/volume)Ordered By: Jean Jett on 05-80-7040Pcuuirg Auto test strip (U) [Mass/Vol]Normal mg/dLSelect Medical Cleveland Clinic Rehabilitation Hospital, Edwin ShawUrine hemoglobin detection by automated test stripOrdered By: Jean Jett on 19-52-4409Emdxrnjkkg Auto test strip Ql (U)3+ NegativeMercy Health Allen HospitalUrine leukocyte esterase detection by automated test stripOrdered By: Jean Jett on 54-59-1787Nupljgdjd esterase Auto test strip Ql (U)2+NegativeMercy Health Allen HospitalUrine sediment crystal identification by light microscopyOrdered By: Jean Jett on 04-10-2022 Crystals LM Nom (Urine sed)None seen [HPF][facility] Urobilinogen Auto test strip (U) [Mass/Vol]Ordered By: Jean Jett on 94-08-2517Pvevjrxkywag (U) [Mass/Vol]Normal mg/dLPremier Health Miami Valley HospitalWBC Auto (Bld) [#/Vol]Ordered By: Jean Jett on 68-45-6590JNH (Bld) [#/Vol]8.5 10*3/uL3.8-11.6FVeterans Health AdministrationpH Auto test strip (U)Ordered By: Jean Jett on 11-13-8139mL (U)5.5 [pH]5.0-9.0[facility] HospitalBasophils Auto (Bld) [#/Vol]Ordered By: PROVIDER TEMP on 18-16-2639Hygtsmlxg (Bld) [#/Vol]0.0 10*3/uL0.0-0.2FVeterans Health AdministrationBasophils/100 WBC Auto (Bld)Ordered By: PROVIDER TEMP on 04-08-2022 Basophils/100 WBC (Bld)0.4 %.[facility] HospitalEosinophils Auto (Bld) [#/Vol]Ordered By: PROVIDER TEMP on 28-40-9143Qwgnrpkoggl (Bld) [#/Vol]0.4 10*3/uL0.0-0.45Mer[facility] HospitalEosinophils/100 WBC Auto (Bld) Ordered By: PROVIDER TEMP on 70-39-8338Jpqkefyvebn/100 WBC (Bld)5.5 %.[facility] HospitalErythrocyte distribution width Auto (RBC) [Ratio]Ordered By: PROVIDER TEMP on 35-32-2416Wirsqtsmvos distribution width (RBC) [Ratio]14.1 %11.9-15.3FVeterans Health AdministrationHematocrit Auto (Bld) [Volume fraction]Ordered By: PROVIDER TEMP on 67-96-2665Pcathmfbwj (Bld) [Volume fraction]33.9 %34.0-46.4FVeterans Health AdministrationHemoglobin [Mass/volume] in BloodOrdered By: PROVIDER TEMP on 66-52-3455Rnnvfjgyoz (Bld) [Mass/Vol]11.4 g/dL11.8-15.4FVeterans Health AdministrationLeukocytes [#/volume] corrected for nucleated erythrocytes in Blood by Automated coun Ordered By: PROVIDER TEMP on 37-77-2861DMI corrected for nucl RBC Auto (Bld) [#/Vol]8.1 10*3/uL3.8-11.6FVeterans Health AdministrationLymphocytes Auto (Bld) [#/Vol]Ordered By: PROVIDER TEMP on 95-85-7117Hoqkauabmxs (Bld) [#/Vol]2.3 10*3/uL1.00-4.8[facility] HospitalLymphocytes/100 WBC Auto (Bld) Ordered By: PROVIDER TEMP on 21-00-3802Vhycofstclg/100 WBC (Bld)28.1 %.[facility] HospitalMCH Auto (RBC) [Entitic mass]Ordered By: PROVIDER TEMP on 64-23-4553NIR (RBC) [Entitic mass]29.0 pg24.7-34.3FVeterans Health AdministrationMCHC Auto (RBC) [Mass/Vol]Ordered By: PROVIDER TEMP on 44-80-8305GMOH (RBC) [Mass/Vol]33.7 g/dL32.0-35.0[facility] HospitalMCV Auto (RBC) [Entitic vol]Ordered By: PROVIDER TEMP on 23-33-7677XOC (RBC) [Entitic vol]86.0 tL86-364XrpzwxxkmMercy Health Allen HospitalMonocyte distribution width [Entitic volume] in Blood by AutomatedOrdered By: PROVIDER TEMP on 04-08-2022 Monocyte distribution width Auto (Bld) [Entitic vol]13.83 %0.00-20.00[facility] HospitalMonocytes Auto (Bld) [#/Vol]Ordered By: PROVIDER TEMP on 36-22-0893Qucmjkvhn (Bld) [#/Vol]0.5 10*3/uL0.0-0.8[facility] HospitalMonocytes/100 WBC Auto (Bld)Ordered By: PROVIDER TEMP on 04-08-2022 Monocytes/100 WBC (Bld)6.7 %.[facility] HospitalNeutrophils Auto (Bld) [#/Vol]Ordered By: PROVIDER TEMP on 19-76-5505Nqjlecyywmt (Bld) [#/Vol]4.8 10*3/uL1.8-7.7FVeterans Health AdministrationNeutrophils/100 WBC Auto (Bld) Ordered By: PROVIDER TEMP on 73-36-9493Taoozcmgmhv/100 WBC (Bld)59.3 %.[facility] HospitalNucleated erythrocytes [Presence] in Blood by Automated countOrdered By: PROVIDER TEMP on 89-83-1919Bseqvqike RBC Auto Ql (Bld)0.2 /100{WBC}0-0.5FVeterans Health AdministrationPlatelet mean volume Auto (Bld) [Entitic vol]Ordered By: PROVIDER TEMP on 98-86-2913Zfldrboc mean volume (Bld) [Entitic vol]7.0 fL6.3-10.7FVeterans Health AdministrationPlatelets Auto (Bld) [#/Vol]Ordered By: PROVIDER TEMP on 60-56-1576Hbwzgoiti (Bld) [#/Vol]199 10*3/uL 150-450Mer[facility] HospitalRBC Auto (Bld) [#/Vol]Ordered By: PROVIDER TEMP on 40-08-7038SOQ (Bld) [#/Vol]3.94 10*6/uL3.60-5.00[facility] HospitalWBC Auto (Bld) [#/Vol]Ordered By: PROVIDER TEMP on 24-77-6872QGC (Bld) [#/Vol]8.1 10*3/uL3.8-11.6FVeterans Health Administration XR shoulder RT min 2V*on 51-97-4352RN shoulder RT min 2V*[facility] Other XR shoulder RT min 2V*[facility] Navigating Cancer Other XR shoulder RT min 2V*[address] [place] [address] Navigating Cancer Other XR shoulder RT min 2V*[place] [address]Ybccu Navigating Cancer Other XR shoulder RT min 2V*[facility] Other XR shoulder RT min 2V*[facility] Navigating Cancer Other XR shoulder RT min 2V*Patient: Jaz Sanders MR#: [id number] Navigating Cancer Other XR shoulder RT min 2V*[address] [facility] Other XR shoulder RT min 2V*: 1995 Acct:[id number] [place] [facility] Other XR shoulder RT min 2V*Age/Sex: 27 / F ADM Date: 03/23/22[place] [facility] Other XR shoulder RT min 2V*[facility] Type[facility] Navigating Cancer Other XR shoulder RT min 2V*Attending Dr: Amanda Ford APRN, [facility] vSocial Other XR shoulder RT min 2V*Copies to: Amanda Ford APRN, [facility] Navigating Cancer Other XR shoulder RT min 2V*Ordering Provider: Amanda Ford APRN, [facility] Navigating Cancer Other XR shoulder RT min 2V*Date of Service: 03/23/22[place] [facility] Other XR shoulder RT min 2V* XR/XR shoulder RT min 2V*: Other chronic pain;Pain in right shoulderManasquan Navigating Cancer Other XR shoulder RT min 2V*RIGHT SHOULDER - - 3 viewsManasqu[place] [facility] Other XR shoulder RT min 2V*CLINICAL HISTORY: Pain lateral to right shoulder for 6 months.[facility] Other XR shoulder RT min 2V*COMPARISON: [facility] Navigating Cancer Other XR shoulder RT min 2V*FINDINGS:[facility] Other XR shoulder RT min 2V*Minimal degenerative changes of the right AC joint. Glenohumeral joint is grossly unremarkable. [facility] Other XR shoulder RT min 2V*acute bony process.[facility] Other XR shoulder RT min 2V* XR/XR shoulder RT min 2V*[facility] Other XR shoulder RT min 2V*IMPRESSION:[facility] Other XR shoulder RT min 2V*MINIMAL DEGENERATIVE CHANGES. NO ACUTE BONY PROCESS.[facility] Other XR shoulder RT min 2V*Impression dictated by: Sravan Dickinson Jr., D.O.03/23/2022 4:06 [facility] [facility] Other xr shoulder RT min 2V*Dictation Location: [address] vSocial Other xr shoulder RT min 2V*Transcribed By: [facility] 03/23/[address] [place] [address] Navigating Cancer Other xr shoulder RT min 2V*Dictated By: Sravan Dickinson Jr, DO 03/23/[address] [place] [address] Navigating Cancer Other xr shoulder RT min 2V*Signed By:Cydcor Other xr shoulder RT min 2V*03/23/[address] [place] [address] Navigating Cancer Other Coding Summary.on 51-86-5340Iiluzp Summary. CD:[id number]+PGhlYWQ+ON7KWPMuN22niWMuzA0GX4iGCT7MKZAGDXDMOH3TTZ3mh OC8NZmbH7HaqiVn [file] cHNl (more content not included)...[facility] HospitalHeart [facility]ascular Office/Clinic Noteon 51-90-4223Lyesg and Vascular Office/Clinic Note Chief Complaint Testing [...] after patient or guardian consented to allow Targeted Growth eXperience to record this visit. ANAMARIA medical billing and coding specialist and provider reviewed before signing. ANAMARIA: [...] Family History Bipolar: Sister. Depression: Mother and Grandparent.[facility] HospitalComment on above:Result Comment: Electronically Signed By: Jay DAVEY, Samir Rivera\.br\Date and Time Signed: 09/02/21 09:25 EDT\.br\Electronically Co-Signed By: Rissa Arias\.br\Date and Time Co-Signed: 09/01/21 17:11 EDTCoding Summary.on 99-18-2583Prgpqz Summary. CD:[id number]:[id number]+PGhlYWQ+JU7FAEZtD03knYJjdX2LB1jAOC9IQTEXEMVJBX8VLJ0bz NK6DVaaV6StndPi [file] cHNl (more content not included)...NormalCleveland Clinic Marymount HospitalConsent for Treatmenton 33-12-7851Ligofkd for Treatment [id number]#1.00CD:127NormSumma Health Akron CampusProgress Note-Physicianon 58-73-5549Hoqruorf Note-Physician [id number]#1.00CD:127NormSumma Health Akron CampusHolter Monitoron 10-82-1622Tazdxk Ddalgtl78-DFNE HOLTER MONITOR ORDERING PHYSICIAN: Samir Christofferson, M.D. [...] READ BY: Mariam Salazar M.D. Dictated: 08/26/2021 [id number] Transcribed: 08/27/2021 cc:Samir Thompson M.D.[facility] HospitalComment on above: Result Comment: Electronically Signed By: Martin DAVEY, Mariam Galan\.br\Date and Time Signed: 08/27/21 10:21 EDTHolter Monitor [id number]#1.00CD:127NoSelect Medical Specialty Hospital - CincinnatiConsent for Treatmenton 41-41-3458Nbydect for Treatment [id number]#1.00CD:127NoSelect Medical Specialty Hospital - CincinnatiCoding Summary.on 48-30-9331Pzfbxg Summary. CD:[id number]:[id number]+PGhlYWQ+MR8SMBDnX84mqOTbtT4JU7fFWZ9KRVZZNOANXT8VNQ9wb MO0IEgnC8JfhiJr [file] cHNl (more content not included)...NormalAultman Alliance Community Hospitaltre EKG Tracingson 21-92-5443Qhuakq EKG Tracings [id number]#1.00CD:127[facility] HospitalConsent for Treatmenton 45-23-2960Cztxosh for Treatment [id number]#1.00CD:127[facility] HospitalCoding Summary.on 74-42-4683Cranav Summary. CD:[id number]:[id number]+PGhlYWQ+QG1MOSHjB77seYMqhC9GF2lQFB9GJUDKAQYHAZ8TFG5sj ZC4JHsbQ3RnqhGk [file] cHNl (more content not included)...[facility] HospitalProgress Note-Physicianon 04-48-1073Xvboteyg Note-Physician [id number]#1.00CD:127NormSumma Health Akron CampusHeart and Vascular Office/Clinic Noteon 61-20-1674Dwxyi and Vascular Office/Clinic NoteChief Complaint Bradycardia History [...] with exercise. She presented to [facility] ER 2 weeks ago for suspected [...] after patient or guardian consented to allow [employer]ed [employer] eXperience to record this visit. ANAMARIA medical billing and coding specialist and provider reviewed before signing. ANAMARIA: [...] Tobacco Use:. Never Smokeles (more content not included)...[facility] HospitalComment on above:Result Comment: Electronically Signed By: Samir Thompson MD\.br\Date and Time Signed: 07/27/21 10:44 EDT\.br\Electronically Co-Signed By: Rissa Arias\.br\Date and Time Co-Signed: 07/24/21 16:24 EDTConsent for Treatmenton 62-30-6051Xwdaqlz for [id number]#1.00CD:[address] [place], [place] [address]Referrals Officeon 73-09-8819Evwtzznbf Office [id number]#1.00CD:127[facility] HospitalBASIC METABOLIC PANELon 52-53-1519Qqdfi gap [Moles/Vol]8 mmol/LLow9 - 17 mmol/LMsycamore medical centery Health- [place], KYBun/Cre RatioNOT REPORTEDMer [...] body mass. Additional eGFR calculator available at: http://www.[employer]/multiple_crcl_2012.htm Glucose [Mass/Vol]99 mg/dL70 - 99 mg/dLOhioHealth Southeastern Medical Center, KYInterpretation and review of laboratory resultsAbnormalOhioHealth Southeastern Medical Center, KYPotassium [Moles/Vol]4.5 mmol/L3.7 - 5.3 mmol/LMCincinnati VA Medical Center, KYSodium [Moles/Vol]139 mmol/L135 - 144 mmol/[facility], KYUrea nitrogen [Mass/Vol]5 mg/dLLow6 - 20 mg/dLOhioHealth Southeastern Medical Center, KYBasic Metabolic Profon 05-08-2020(cont.)[facility] Specialty Hospital - CincinnatiComment on above:Result Comment: Average GFR for 20-29 years old: 116 mL/min/1.73sq m Chronic Kidney Disease: <60 mL/min/1.73sq m Kidney failure: <15 mL/min/1.73sq m eGFR calculated using average adult body mass. Additional eGFR calculator available at: http://www.[employer]/multiple_crcl_2012.htmPerformed By: #### CBC, PT, PTT, BMP #### [employer] [address] [place] [address] [phone] Train Braker: Casey Marques MD #### RICKYT #### [facility] [address] [place] [address] Train Braker: Dontae Ward gap [Moles/Vol]8 mmol/LLow9-17Tr[facility] Memorial HospitalComment on above:Performed By: #### CBC, PT, PTT, BMP #### [facility] [address] [place] [address] Train Braker: Casey Maruqes MD #### ANICOT #### [facility] [address] [place] [address] Train Braker: XIN Wardalcium [Mass/Vol]9.2 mg/dLNormal8.6-10.4Tr[facility]ull Memorial HospitalComment on above:Performed By: #### CBC, PT, PTT, BMP #### [facility] [address] [place] [address] [phone] Train Braker: Casey Marques MD #### ANICOT #### [facility] [address] [place] [address] [phone] Train Braker: XIN Wardhloride [Moles/Vol]105 mmol/OFwiwmq40-852RgfybTrumbull Memorial HospitalComment on above:Performed By: #### CBC, PT, PTT, BMP #### [address] [phone] Train Braker: Casey Marques MD #### ANICOT #### [facility] [address] [place] [address] [phone] Train Braker: XIN WardO2 [Moles/Vol]26 mmol/TQndpxc55-79EjwlaTrumbull Memorial HospitalComment on above:Performed By: #### CBC, PT, PTT, BMP #### [address] [phone] Train Braker: Casey Marques MD #### ANICOT #### [facility] [address] [place] [address] Train Braker: XIN Wardreatinine [Mass/Vol]0.67 mg/dLNormal0.50-0.90 [facility] Memorial HospitalComment on above:Performed By: #### CBC, PT, PTT, BMP #### [facility] [address] [place] [address] [phone] Train Braker: Casey Marques MD #### ANICOT #### [facility] [address] [place] [address] Train Braker: Adolph Diaz MDGFR, Amer>60Normal>60[facility] Ucsf Medical CenterComment on above:Performed By: #### CBC, PT, PTT, BMP #### [facility] [address] [place] [address] [phone] Train Braker: Casey Marques MD #### ANICOT #### [facility] [address] [place], [place] [phone] Train Braker: Adolph Diaz MDGFR,non Amer>60Normal>60[facility]csf Medical CenterComment on above:Performed By: #### CBC, PT, PTT, BMP #### [facility] [address] [place] [address] [phone] Train Braker: Casey Marques MD #### ANICOT #### [facility] [address] [place] [address] Train Braker: Adolph Diaz MDGlucose [Mass/Vol]99 mg/wCApkbfm70-67Soqbv Ucsf Medical CenterComment on above:Performed By: #### CBC, PT, PTT, BMP #### [facility] [address] [place] [address] [phone] Train Braker: Casey Marques MD #### ANICOT #### [facility] [address] [place] [address] Train Braker: Brianna Wardssium [Moles/Vol]4.5 mmol/LNormal3.7-5.3[facility]csf Medical CenterComment on above:Performed By: #### CBC, PT, PTT, BMP #### [facility] [address] [place] [address] [phone] Train Braker: Casey Marques MD #### ANICOT #### [facility] [address] [place] [address] Train Braker: Adolph Diaz, MDSodium [Moles/Vol]139 mmol/WFpidby380-741TjwygTrumbull Memorial HospitalComment on above:Performed By: #### CBC, PT, PTT, BMP #### [facility] [address] [place] [address] Train Braker: Casey Marques MD #### ANICOT #### [facility] [address] [place], [place] [phone] Train Braker: Adolph Diaz MDUrea nitrogen [Mass/Vol]5 mg/dLLow6-20[facility] HospitalComment on above:Performed By: #### CBC, PT, PTT, BMP #### [facility] [address] [place] [address] Train Braker: Casey Marques MD #### ANICOT #### [facility] [address] [place], [place] [phone] Train Braker: ANTONIETA Ward/CRE JiOT REPORTEDNormal9-20[facility] HospitalComment on above:Performed By: #### CBC, PT, PTT, BMP #### [facility] [address] [place] [address] Train Braker: Casey Marques MD #### ANICOT #### [facility] [address] [place], [place] [phone] Train Braker: JACINTO Wardtaging:NOT REPORTEDNormalTrumbull Memorial HospitalComment on above:Performed By: #### CBC, PT, PTT, BMP #### [facility] [address] [place] [address] Train Braker: Casey Marques MD #### ANICOT #### [facility] [address] [place] [address] Train Braker: Adolph Diaz [facility] WITH AUTO DIFFERENTIALon 89-29-0919Yaiewucsk (Bld) [#/Vol]0.06 10*3/[facility], KYBasophils/100 WBC (Bld)1 %0 - 2 % [facility], TXDifferential TypeNOT REPORTEDOhioHealth [facility]heastern Medical Center, KYEosinophils (Bld) [#/Vol]0.35 10*3/[facility], KYEosinophils/100 WBC (Bld)3 %1 - 4 %[facility], TXErythrocyte distribution width (RBC) [Ratio]14.7 %High11.8 - 14.4 %[facility], TXHematocrit (Bld) [Volume fraction]38.4 %36.3 - 47.1 %[facility], TXHemoglobin (Bld) [Mass/Vol]12.0 g/dL11.9 - 15.1 g/dLOhioHealth Southeastern Medical Center, TXImmature granulocytes (Bld) [#/Vol]1 %Fgtb[address] [place] [address], [place] Immature granulocytes (Bld) [#/Vol]0.06 10*3/[facility], [place] Interpretation and review of laboratory resultsAbnormOur Lady of [facility] [place], [place] Lymphocytes (Bld) [#/Vol]2.21 10*3/[facility], NORMALymphocytes/100 WBC (Bld)21 %Low24 - 43 %[facility], TXMCH (RBC) [Entitic mass]26.5 pg25.2 - 33.5 pgOhioHealth Southeastern Medical Center, TXMCHC (RBC) [Mass/Vol]31.3 g/dL28.4 - 34.8 g/dLOhioHealth Southeastern Medical Center, TXMCV (RBC) [Entitic vol]85.0 fL82.6 - 102.9 fLOhioHealth Southeastern Medical Center, [place] Monocytes (Bld) [#/Vol]0.71 10*3/[facility], KYMonocytes/100 WBC (Bld)7 %3 - 12 %[facility], TXPlatelet mean volume (Bld) [Entitic vol]8.6 fL8.1 - 13.5 fLOhioHealth Southeastern Medical Center, TXPlatelets (Bld) [#/Vol]256 10*3/[facility], KYPlatelets (Bld) [#/Vol]NOT REPORTEDAult[facility] (Bld) [#/Vol]4.52 10*6/uL3.95 - 5.11 m/[facility], [facility] morphology finding Nom (Bld) ANISOCYTOSIS PRESENTOhioHealth Southeastern Medical Center, TXSegmented neutrophils/100 WBC (Bld)67 % High36 - 65 %[place], KYSegs Absolute7.30[facility], TXWBC (Bld) [#/Vol]10.7 10*3/uLOhioHealth Southeastern Medical Center, TXWBC (Bld) [#/Vol]0.0 10*3/uL0.0 per 100 WBCOhioHealth Southeastern Medical Center, [facility] MorphologyNOT REPORTEDAvita Health System [facility] with Diffon 20-14-1195Cyr. Basophil0.06 k/uLNormal0.00-0.20[facility] Memorial HospitalComment on above:Performed By: #### CBC, PT, PTT, BMP #### [employer] [address] [place] [address] [phone] Train Braker: Casey Marques MD #### ANALI #### [facility] [address] [place] [address] Train Braker: Ashley Ward.Imm.Granulocyte0.06 k/uLNormal0.00-0.30[facility] Memorial HospitalComment on above:Performed By: #### CBC, PT, PTT, BMP #### [facility] [employer] [facility] [address] [place] [address] Train Braker: Casey Marques MD #### RICKYT #### [facility] [address] [place] [address] Train Braker: Ashley Ward.Neutrophil (Seg)7.30 k/uLNormal1.50-8.10Tr[facility] Memorial HospitalComment on above:Performed By: #### CBC, PT, PTT, BMP #### [facility] [address] [place] [address] Train Braker: Casey Marques MD #### ANICOT #### [facility] [address] [place], [place] [phone] Train Braker: Adolph Diaz MDBasophils/100 WBC (Bld)1 %Normal0-2MEl [facility] Regional Medical CenterComment on above:Performed By: #### CBC, PT, PTT, BMP #### [facility] [address] [place] [address] Train Braker: Casey Marques MD #### ANICOT #### [address] [phone] Train Braker: Adolph Diaz MDEosinophils (Bld) [#/Vol]0.35 10*3/uLNormal 0.00-0.44[facility] HospitalComment on above:Performed By: #### CBC, PT, PTT, BMP #### [address] [address] Train Braker: Casey Marques MD #### ANICOT #### [address] [phone] Train Braker: Adolph Diaz MDEosinophils/100 WBC (Bld)3 %Normal1-4[facility] HospitalComment on above:Performed By: #### CBC, PT, PTT, BMP #### [address] [address] Train Braker: Casey Marques MD #### ANICOT #### [address] [phone] Train Braker: Adolph Diaz MDErythrocyte distribution width (RBC) [Ratio]14.7 %High11.8-14.4[facility] HospitalComment on above:Performed By: #### CBC, PT, PTT, BMP #### [facility] [address] [place] [address] Train Braker: Casey Marques MD #### ANICOT #### [facility] [address] [place] [address] Train Braker: Adolph Diaz MDHematocrit (Bld) [Volume fraction]38.4 %Normal 36.3-47.1MEl [facility] Regional Medical CenterComment on above:Performed By: #### CBC, PT, PTT, BMP #### [facility] [address] [place] [address] Train Braker: Casey Marques MD #### ANICOT #### [facility] [address] [place] [address] Train Braker: Adolph Diaz MDHemoglobin (Bld) [Mass/Vol]12.0 g/dLNormal 11.9-15.1Msycamore medical centery Ucsf Medical CenterComment on above:Performed By: #### CBC, PT, PTT, BMP #### [facility] [address] [place] [address] Train Braker: Casey Marques MD #### ANICOT #### [facility] [address] [place], [place] [phone] Train Braker: Adolph Diaz MDImmature granulocytes/100 WBC (Bld)1 %Hesa4XikmtVencor HospitalComment on above:Performed By: #### CBC, PT, PTT, BMP #### [facility] [address] [place] [address] Train Braker: Casey Marques MD #### ANICOT #### [facility] [address] [place], [place] [phone] Train Braker: Adolph Diaz MDLymphocytes (Bld) [#/Vol]2.21 10*3/uLNormal 1.10-3.70[facility] HospitalComment on above:Performed By: #### CBC, PT, PTT, BMP #### [address] [address] Train Braker: Casey Marques MD #### ANICOT #### [facility] [address] [place], [place] [phone] Train Braker: Adolph Diaz MDLymphocytes/100 WBC (Bld)21 %Lbs03-02JispnTrumbull Memorial HospitalComment on above:Performed By: #### CBC, PT, PTT, BMP #### [place] [address] Train Braker: Casey Marques MD #### ANICOT #### [address] [phone] Train Braker: NIMCO Ward (RBC) [Entitic mass]26.5 ylImmidi39.2-33.5 [facility] HospitalComment on above:Performed By: #### CBC, PT, PTT, BMP #### [address] [phone] Train Braker: Casey Marques MD #### ANICOT #### [address] [phone] Train Braker: NIMCO WardC (RBC) [Mass/Vol]31.3 g/oVNvevju16.4-34.8 [facility] HospitalComment on above:Performed By: #### CBC, PT, PTT, BMP #### [address] [phone] Train Braker: Casey Marques MD #### ANICOT #### [facility] [address] [place], [place] [phone] Train Braker: Adolph Diaz, MDMCV (RBC) [Entitic vol]85.0 yGRiglzl64.6-102.9 [facility] HospitalComment on above:Performed By: #### CBC, PT, PTT, BMP #### [address] [address] Train Braker: Casey Marques MD #### ANICOT #### [facility] [address] [place] [address] Train Braker: Adolph Diaz MDMonocytes (Bld) [#/Vol]0.71 10*3/uLNormal 0.10-1.20[facility] HospitalComment on above:Performed By: #### CBC, PT, PTT, BMP #### [address] [address] Train Braker: Casey Marques MD #### ANICOT #### [facility] [address] [place] [address] Train Braker: YESSICA Wardonocytes/100 WBC (Bld)7 %Normal3-12[facility] HospitalComment on above:Performed By: #### CBC, PT, PTT, BMP #### [address] [address] Train Braker: Casey Marques MD #### ANICOT #### [facility] [address] [place] [address] Train Braker: Adolph Diaz MDNeutrophil (Seg)67 %Ntnd43-03ItpegTrumbull Memorial HospitalComment on above:Performed By: #### CBC, PT, PTT, BMP #### [address] [address] Train Braker: Casey Marques MD #### ANICOT #### [facility] [address] [place] [address] Train Braker: Adolph Diaz MDNRBC Automated0.0 per 100 WBCNormal0.0[facility] HospitalComment on above:Performed By: #### CBC, PT, PTT, BMP #### [address] [address] Train Braker: Casey Marques MD #### ANICOT #### [facility] [address] [place] [address] Train Braker: Stephan Ward mean volume (Bld) [Entitic vol]8.6 fL Normal8.1-13.5Tr[facility] HospitalComment on above:Performed By: #### CBC, PT, PTT, BMP #### [address] [address] Train Braker: Casey Marques MD #### ANICOT #### [facility] [address] [place] [address] Train Braker: Yajaira Ward (Bld) [#/Vol]256 10*3/fUMottkp756-472 [facility] HospitalComment on above:Performed By: #### CBC, PT, PTT, BMP #### [address] [address] Train Braker: Casey Marques MD #### ANICOT #### [facility] [address] [place] [address] Train Braker: Adolph Diaz MDRBC (Bld) [#/Vol]4.52 10*6/uLNormal3.95-5.11[facility] HospitalComment on above:Performed By: #### CBC, PT, PTT, BMP #### [address] [address] Train Braker: Casey Marques MD #### ANICOT #### [facility] [address] [place] [address] Train Braker: RAYMON Ward morphology finding Nom (Bld)ANISOCYTOSIS PRESENTSelect Medical Specialty Hospital - CincinnatiComment on above:Performed By: #### CBC, PT, PTT, BMP #### [facility] [address] [place] [address] Train Braker: Casey Marques MD #### ANICOT #### [facility] [address] [place] [address] Train Braker: DIEGO Ward (Bld) [#/Vol]10.7 10*3/uLNormal3.5-11.3[facility]csf Medical CenterComment on above:Performed By: #### CBC, PT, PTT, BMP #### [facility] [address] [place] [address] Train Braker: Casey Marques MD #### ANICOT #### [facility] [address] [place] [address] Train Braker: Arnav Ward PerformedNOT REPORTEDSelect Medical Specialty Hospital - CincinnatiComment on above:Performed By: #### CBC, PT, PTT, BMP #### [facility] [address] [place] [address] Train Braker: Casey Marques MD #### ANICOT #### [facility] [address] [place] [address] Train Braker: Stephan Ward EstimateNOT REPORTEDSelect Medical Specialty Hospital - CincinnatiComment on above:Performed By: #### CBC, PT, PTT, BMP #### [facility] [address] [place] [address] Train Braker: Casey Marques MD #### ANICOT #### [facility] [address] [place] [address] Train Braker: DIEGO Ward MorphologyNOT REPORTEDNormalTrumbull Memorial HospitalComment on above:Performed By: #### CBC, PT, PTT, BMP #### [employer] [address] [place] [address] [phone] Train Braker: Casey Marques MD #### ANICOT #### [facility] [address] [place] [address] Train Braker: JACINTO Wardurgical Pathologyon 65-43-9393Chxlnevc Pathology Report-- Diagnosis -- STOMACH, SLEEVE GASTRECTOMY: [...] with no areas of granularity or masses. Washing Machine Loader sections 1cs. tm Microscopic Description Sections of gastric mucosa show increased lymphocytes and plasma cells in the lamina propria. There is no evidence of acute inflammation, intestinal metaplasia or dysplasia. There is no evidence of organisms suspicious for Helicobacter with the routine H&E stains. SURGICAL PATHOLOGY CONSULTATION Patient Name: JAZ SANDERS [facility] Rec: [id number] Path Number: [id number] [employer] ANATOMIC PATHOLOGY [address] [place] [phone] [facility]- [place], KYBasic Metabolic Panelon 03-28-3926Vmqfh gap [Moles/Vol]13 mmol/L9 - 17 mmol/LMercy Health- [place], KYBun/Cre RatioNOT REPORTEDMercy Health- [place], KYCalcium [Mass/Vol]9.4 mg/dL8.6 - 10.4 mg/dLMercy Health- [place], KYChloride [Moles/Vol]104 mmol/L98 - 107 mmol/LMercy Health- [place], [place] CO2 [Moles/Vol]23 mmol/L20 - 31 mmol/[facility], KYCreatinine [Mass/Vol] 0.73 mg/dL0.5 - 0.9 mg/dLOhioHealth [facility]heastern [facility] Center, KYGFR >60>60 mL/min [facility], KYGFR Non->60>60 mL/minOhioHealth Southeastern Medical Center, [place] GFR/1.73 sq M predicted among non-blacks MDRD (S/P/Bld) [Vol rate/Area]NOT REPORTEDOhioHealth [facility]heastern Medical Center, KYGFR/1.73 sq M predicted among non-blacks MDRD (S/P/Bld) [Vol rate/Area][facility], KYComment on above:Average GFR for 20-29 years old: 116 mL/min/1.73sq m Chronic Kidney Disease: <60 mL/min/1.73sq m Kidney failure: <15 mL/min/1.73sq m eGFR calculated using average adult body mass. Additional eGFR calculator available at: http://www.[employer]/multiple_crcl_2011.htm Glucose [Mass/Vol]98 mg/dL70 - 99 mg/dLOhioHealth Southeastern Medical Center, KYPotassium [Moles/Vol] 4.1 mmol/L3.7 - 5.3 mmol/[facility], KYSodium [Moles/Vol]140 mmol/L135 - 144 mmol/[facility], KYUrea nitrogen [Mass/Vol]6 mg/dL6 - 20 mg/dLOhioHealth Southeastern [facility] Center, KYBasic Metabolic Profon 05-07-2020(cont.)[facility] Hospital - CincinnatiComment on above:Result Comment: Average GFR for 20-29 years old: 116 mL/min/1.73sq m Chronic Kidney Disease: <60 mL/min/1.73sq m Kidney failure: <15 mL/min/1.73sq m eGFR calculated using average adult body mass. Additional eGFR calculator available at: http://www.[employer]/multiple_crcl_2012.htmPerformed By: #### CBC, BMP #### [employer] [facility] [place] [address] Train Braker: Casey Marques MDAnion gap [Moles/Vol]13 mmol/LNormal9-17[facility] HospitalComment on above:Performed By: #### CBC, BMP #### [facility] [address] [place] [address] Train Braker: Casey Marques MDCalcium [Mass/Vol]9.4 mg/dLNormal8.6-10.4[facility] HospitalComment on above:Performed By: #### CBC, BMP #### [facility] [address] [place] [address] Train Braker: Casey Marques MDChloride [Moles/Vol]104 mmol/NSelvop86-599NnxqpTrumbull Memorial HospitalComment on above:Performed By: #### CBC, BMP #### [facility] [address] [place] [address] Train Braker: Casey Marques MDCO2 [Moles/Vol]23 mmol/PAnzjnc44-39KbjguTrumbull Memorial HospitalComment on above:Performed By: #### CBC, BMP #### [facility] [address] [place] [address] Train Braker: Casey Marques MDCreatinine [Mass/Vol]0.73 mg/dLNormal0.50-0.90 [facility] HospitalComment on above:Performed By: #### CBC, BMP #### [facility] [address] [place] [address] Train Braker: SIRISHA Capellan, Amer>60Normal>60[facility] HospitalComment on above:Performed By: #### CBC, BMP #### [facility] [address] [place] [address] Train Braker: Casey Madoff, MDGFR,non Amer>60Normal>60[facility] HospitalComment on above:Performed By: #### CBC, BMP #### [facility] [address] [place] [address] Train Braker: Casey Marques MDGlucose [Mass/Vol]98 mg/hUOnbwje83-08XprukEl Centro Regional Medical CenterComment on above:Performed By: #### CBC, BMP #### [facility] [address] [place] [address] Train Braker: VERONICA Capellanotassium [Moles/Vol]4.1 mmol/LNormal3.7-5.3 [facility] HospitalComment on above:Performed By: #### SAGRARIO, BMP #### [address] [address] Train Braker: JACINTO Capellanodium [Moles/Vol]140 mmol/MAjdetb478-918JaopfTrumbull Memorial HospitalComment on above:Performed By: #### SAGRARIO, BMP #### [address] [address] Train Braker: Casey Marques MDUrea nitrogen [Mass/Vol]6 mg/dLNormal6-20[facility] HospitalComment on above:Performed By: #### SAGRARIO, BMP #### [address] [address] Train Braker: Casey Marques MDBUN/CRE RatioNOT REPORTEDNormal9-20[facility] HospitalComment on above:Performed By: #### SAGRARIO, BMP #### [address] [address] Train Braker: JACINTO Capellantaging:NOT REPORTEDNormalTrumbull Memorial HospitalComment on above:Performed By: #### CBC, BMP #### [facility] [facility] [address] [place] [address] Train Braker: Nacho Capellan 06-64-5229Urgatncjtiw distribution width (RBC) [Ratio]14.4 %Hhdxrl54.8-14.4[facility]ull [facility] HospitalComment on above:Performed By: #### CBC, BMP #### [address] [address] Train Braker: Casey Marques MDHematocrit (Bld) [Volume fraction]40.4 %Normal 36.3-47.1MEl [facility] CenterComment on above:Performed By: #### CBC, BMP #### [address] [address] Train Braker: Casey Marques MDHemoglobin (Bld) [Mass/Vol]12.6 g/dLNormal 11.9-15.1MEl [facility] CenterComment on above:Performed By: #### CBC, BMP #### [address] [address] Train Braker: YESSICA CapellanCH (RBC) [Entitic mass]26.1 tcSwxude04.2-33.5 [facility] HospitalComment on above:Performed By: #### CBC, BMP #### [address] [address] Train Braker: YESSICA CapellanCHC (RBC) [Mass/Vol]31.2 g/gIVqfows88.4-34.8 [facility] HospitalComment on above:Performed By: #### CBC, BMP #### [address] [address] Train Braker: YESSICA CapellanCV (RBC) [Entitic vol]83.8 aQNbfqir77.6-102.9 [facility] HospitalComment on above:Performed By: #### CBC, BMP #### [address] [address] Train Braker: Casey Marques MDNRBC Automated0.0 per 100 WBCNormal0.0[facility] HospitalComment on above:Performed By: #### CBC, BMP #### [facility] [address] [place] [address] Train Braker: Jose Capellantelet mean volume (Bld) [Entitic vol]8.7 fL Normal8.1-13.5[facility] HospitalComment on above:Performed By: #### CBC, BMP #### [address] [address] Train Braker: VERONICA Capellanlatelets (Bld) [#/Vol]289 10*3/yUDggqbn506-189 [facility] HospitalComment on above:Performed By: #### CBC, BMP #### [address] [address] Train Braker: Casey Marques MDRBC (Bld) [#/Vol]4.82 10*6/uLNormal3.95-5.11 [facility] HospitalComment on above:Performed By: #### CBC, BMP #### [address] [address] Train Braker: Casey Marques MDWBC (Bld) [#/Vol]13.7 10*3/uLHigh3.5-11.3MEl [facility] CenterComment on above:Performed By: #### CBC, BMP #### [facility] [address] [place] [address] Train Braker: Casey Marques MDErythrocyte distribution width (RBC) [Ratio]14.4 %11.8 - 14.4 %[facility], KYHematocrit (Bld) [Volume fraction]40.4 %36.3 - 47.1 %[facility], KYHemoglobin (Bld) [Mass/Vol]12.6 g/dL11.9 - 15.1 g/dL [facility], TXInterpretation and review of laboratory resultsAbnormOur Lady of Mercy Hospital - Anderson, TXMCH (RBC) [Entitic mass]26.1 pg25.2 - 33.5 pgFin[place], [place] MCHC (RBC) [Mass/Vol]31.2 g/dL28.4 - 34.8 g/dLFin[place], KYMCV (RBC) [Entitic vol]83.8 fL82.6 - 102.9 fLFinland, KYPlatelet mean volume (Bld) [Entitic vol]8.7 fL8.1 - 13.5 fLOhioHealth Southeastern Medical Center, TXPlatelets (Bld) [#/Vol]289 10*3/[facility], TXRBC (Bld) [#/Vol]4.82 10*6/uL3.95 - 5.11 m/[facility], TXWBC (Bld) [#/Vol]0.0 10*3/uL0.0 per 100 WBCFinland, KYWBC (Bld) [#/Vol]13.7 10*3/uLHighFinland, KYFL ESOPHAGRAMon 15-50-5071QX ESOPHAGRAMEXAMINATION: SINGLE CONTRAST ESOPHAGRAM 05/07/2020 HISTORY: ORDERING [...] Signed by: Petr Cullen MD 05/07/20 Final resultNoWexner Medical CenterEXAMINATION: SINGLE CONTRAST ESOPHAGRAM 05/07/2020 HISTORY: [...] gastric sleeve. No obstruction. No extravasation of contrast.[facility] 48domainBARNES-JEWISH SAINT PETERS HOSPITALGerardo Mhpn Incoming Radiant Results From [employer] - 05/07/2020 10:04 AM EST EXAMINATION: SINGLE [...] extravasation of contrast. [facility] Medical CenterStorematesBARNES-JEWISH SAINT PETERS HOSPITALJacob extravasation of contrast.[facility] 48domainBARNES-JEWISH SAINT PETERS HOSPITALNORMAPOCT urine pregnancyon 28-10-1375Selr HCG ( test) Ql (U)NegativeNEGATIVEOhioHealth Southeastern Medical Center, NORMAComment on above:Specimens with hCG levels near the threshold of the test (25 mIU/mL) may give a negative or indeterminate result. In such cases, another test should be performed with a new specimen in 48-72 hours. If early is suspected clinically in this setting, correlation with quantitative serum b-hCG level is suggested. Basic Metabolic Panelon 44-81-9417Yvtxx gap [Moles/Vol]10 mmol/L9 - 17 mmol/L [facility] 48domainBARNES-JEWISH SAINT [facility], KYBun/Cre RatioNOT REPORTEDOhioHealth [facility], KYCalcium [Mass/Vol]9.5 mg/dL8.6 - 10.4 mg/dLOhioHealth [facility], KYChloride [Moles/Vol]103 mmol/L98 - 107 mmol/LMercHealthmark Regional Medical Center, KYCO2 [Moles/Vol]19 mmol/LLow20 - 31 mmol/LMCincinnati VA Medical Center, KYCreatinine [Mass/Vol]0.9 mg/dL0.5 - 0.9 mg/dLOhioHealth [facility], KYGFR >60>60 mL/minOhioHealth Southeastern Medical Center, KYGFR Non- >60>60 mL/minOhioHealth Southeastern Medical Center, KYGFR/1.73 sq M predicted among non-blacks MDRD (S/P/Bld) [Vol rate/Area]NOT REPORTEDOhioHealth Southeastern Medical Center, [place] GFR/1.73 sq M predicted among non-blacks MDRD (S/P/Bld) [Vol rate/Area][facility], KYComment on above:Average GFR for 20-29 years old: 116 mL/min/1.73sq m Chronic Kidney Disease: <60 mL/min/1.73sq m Kidney failure: <15 mL/min/1.73sq m eGFR calculated using average adult body mass. Additional eGFR calculator available at: http://www.videScreen Networks/Juristat_crcl_2011.htm Glucose [Mass/Vol]162 mg/aSFhnb10 - 99 mg/dLOhioHealth [facility], KYInterpretation and review of laboratory resultsAbnormalOhioHealth [facility]heastern Medical Center, KYPotassium [Moles/Vol]3.9 mmol/L3.7 - 5.3 mmol/[facility], KYSodium [Moles/Vol]132 mmol/IQkf801 - 144 mmol/[facility], KYUrea nitrogen [Mass/Vol]10 mg/dL6 - 20 mg/dLOhioHealth [facility], KYBasic Metabolic Profon 05-06-2020(cont.)NormalTrumbull Memorial HospitalComment on above:Result Comment: Average GFR for 20- 29 years old: 116 mL/min/1.73sq m Chronic Kidney Disease: <60 mL/min/1.73sq m Kidney failure: <15 mL/min/1.73sq m eGFR calculated using average adult body mass. Additional eGFR calculator available at: http://www.v[employer]Screen [employer]/multiple_crcl_2012.htmPerformed By: #### CBC, BMP #### [employer] [address] [place] [address] Train Braker: Casey Marques MDAnion gap [Moles/Vol]10 mmol/LNormal9-17[facility] HospitalComment on above:Performed By: #### CBC, BMP #### [facility] [address] [place] [address] Train Braker: Casey Marques MDCalcium [Mass/Vol]9.5 mg/dLNormal8.6-10.4[facility] HospitalComment on above:Performed By: #### CBC, BMP #### [facility] [address] [place] [address] Train Braker: Casey Marques MDChloride [Moles/Vol]103 mmol/JMwwpyy21-039NeqpmTrumbull Memorial HospitalComment on above:Performed By: #### CBC, BMP #### [facility] [address] [place] [address] Train Braker: Casey Marques MDCO2 [Moles/Vol]19 mmol/KGti20-47NsvtzTrumbull Memorial HospitalComment on above:Performed By: #### CBC, BMP #### [facility] [address] [place] [address] Train Braker: Casey Marques MDCreatinine [Mass/Vol]0.90 mg/dLNormal0.50-0.90 [facility] HospitalComment on above:Performed By: #### CBC, BMP #### [facility] [address] [place] [address] Train Braker: SIRISHA Capellan, Amer>60Normal>60[facility] HospitalComment on above:Performed By: #### CBC, BMP #### [facility] [address] [place] [address] Train Braker: SIRISHA Capellan,non Amer>60Normal>60[facility] HospitalComment on above:Performed By: #### CBC, BMP #### [facility] [address] [place] [address] Train Braker: Casey Marques MDGlucose [Mass/Vol]162 mg/rUTeao47-53DaplsEl [facility] Medical CenterComment on above:Performed By: #### CBC, BMP #### [facility] [address] [place] [address] Train Braker: Casey Marques MDPotassium [Moles/Vol]3.9 mmol/LNormal3.7-5.3 [facility] HospitalComment on above:Performed By: #### CBC, BMP #### [address] [address] Train Braker: JACINTO Capellanodium [Moles/Vol]132 mmol/TGso567-780HnucfTrumbull Memorial HospitalComment on above:Performed By: #### SAGRARIO, BMP #### [address] [address] Train Braker: Casey Marques MDUrea nitrogen [Mass/Vol]10 mg/dLNormal6-20[facility] HospitalComment on above:Performed By: #### CBC, BMP #### [address] [address] Train Braker: ROSALBA CapellanN/CRE RatioNOT REPORTEDNormal9-20[facility] HospitalComment on above:Performed By: #### CBC, BMP #### [address] [address] Train Braker: JACINTO Capellantaging:NOT REPORTEDNormalTrumbull Memorial HospitalComment on above:Performed By: #### CBC, BMP #### [address] [address] Train Braker: Nacho Capellan 59-47-4363Tepgrgqlnlv distribution width (RBC) [Ratio]14.6 %High11.8-14.4[facility] HospitalComment on above:Performed By: #### CBC, BMP #### [address] [address] Train Braker: Casey Marques MDHematocrit (Bld) [Volume fraction]42.5 %Normal 36.3-47.1MEl [facility] CenterComment on above:Performed By: #### CBC, BMP #### [address] [address] Train Braker: Casey Marques MDHemoglobin (Bld) [Mass/Vol]12.8 g/dLNormal 11.9-15.1MEl [facility] CenterComment on above:Performed By: #### CBC, BMP #### [address] [address] Train Braker: YESSICA CapellanCH (RBC) [Entitic mass]26.9 mjBkcmvj12.2-33.5 [facility] HospitalComment on above:Performed By: #### CBC, BMP #### [address] [address] Train Braker: YESSICA CapellanCHC (RBC) [Mass/Vol]30.1 g/wSYoignd38.4-34.8 [facility] HospitalComment on above:Performed By: #### CBC, BMP #### [address] [address] Train Braker: YESSICA CapellanCV (RBC) [Entitic vol]89.3 jXIwjbno87.6-102.9 [facility] HospitalComment on above:Performed By: #### CBC, BMP #### [address] [address] Train Braker: RAMONE Capellan Automated0.0 per 100 WBCNormal0.0[facility] HospitalComment on above:Performed By: #### CBC, BMP #### [facility] [address] [place] [address] Train Braker: Jose Capellantebrigid mean volume (Bld) [Entitic vol]8.4 fL Normal8.1-13.5[facility] HospitalComment on above:Performed By: #### CBC, BMP #### [facility] [address] [place] [address] Train Braker: Jose Capellantelets (Bld) [#/Vol]300 10*3/pIIarroz004-659 [facility] HospitalComment on above:Performed By: #### CBC, BMP #### [facility] [address] [place] [address] Train Braker: MADDI CapellanBC (Bld) [#/Vol]4.76 10*6/uLNormal3.95-5.11 [facility] HospitalComment on above:Performed By: #### CBC, BMP #### [address] [address] Train Braker: DIEGO Capellan (Bld) [#/Vol]14.3 10*3/uLHigh3.5-11.3MEl [facility] CenterComment on above:Performed By: #### CBC, BMP #### [facility] [address] [place] [address] Train Braker: NIDIA Capellan without Diffon 44-94-0982Slxkdlgsnnr distribution width (RBC) [Ratio]14.6 %High11.8 - 14.4 %[place], [place] Hematocrit (Bld) [Volume fraction]42.5 %36.3 - 47.1 %[place], [place] Hemoglobin (Bld) [Mass/Vol]12.8 g/dL11.9 - 15.1 g/dLFin[place], [place] Interpretation and review of laboratory resultsAbnormalGenesis HospitalH (RBC) [Entitic mass]26.9 pg25.2 - 33.5 pgFinland, KYMCHC (RBC) [Mass/Vol]30.1 g/dL28.4 - 34.8 g/dLFin[place], KYMCV (RBC) [Entitic vol] 89.3 fL82.6 - 102.9 fLFin[place], KYPlatelet mean volume (Bld) [Entitic vol]8.4 fL8.1 - 13.5 fLFin[place], KYPlatelets (Bld) [#/Vol]300 10*3/uL [place], KYRBC (Bld) [#/Vol]4.76 10*6/uL3.95 - 5.11 m/uLFin[place], KYWBC (Bld) [#/Vol]14.3 10*3/uLHighFin[place], KYWBC (Bld) [#/Vol]0.0 10*3/uL0.0 per 100 WBCFinland, KYSurgical Pathologyon 05-06-2020 Surgical Pathology(NOTE) -- Diagnosis [...] with no areas of granularity or masses. Washing Machine Loader sections 1cs. tm Microscopic Description Sections of gastric mucosa show increased lymphocytes and plasma cells in the lamina propria. There is no evidence of acute inflammation, intestinal metaplasia or dysplasia. There is no evidence of organisms suspicious for Helicobacter with the routine BRI stains. SURGICAL PATHOLOGY CONSULTATION Patient Name: JAZ SANDERS [facility] Rec: [id number] Path Number: [id number] [facility] ANATOMIC PATHOLOGY [address] [place] [phone] NoWexner Medical CenterComment on above: Performed By: #### CBC, PT, PTT, BMP #### [facility] [address] [place] [phone] Train Braker: Casey Marques MD #### ANICOT #### [facility] [address] [place] [address] Train Braker: YU WardCoV-2on 75-49-9536ZZCY-CoV-2NCleveland Clinic Mercy HospitalComment on above:Performed By: #### COVID #### [address] [id number] Train Braker: Tracie Capellan2Not DetectedNoalNOTDEBlanchard Valley Health System Bluffton HospitalComment on above:Result Comment: The specimen is [...] this assay. Fact sheet for Healthcare Providers: https://www.fda.gov/media/332582/download Fact sheet for Patients: https://www.fda.gov/media/933207/download METHODOLOGY: RT-PCRPerformed By: #### COVID #### [facility] [address] [place] [address] Train Braker: YU CapellanCoV-2,[facility] Comment on above:Performed By: #### COVID #### [facility] [address] [place] [address] Train Braker: YU CapellanCoV-2on 12-32-3917HSTM-CoV-2 Source .NASOPHARYNGEAL SWABFirelands Regional Medical Center South CampusComment on above:Performed By: #### COVID #### [facility] [address] [place] [address] Train Braker: Ilana Capellan [address]-LX-Vlwubizm<2NThe University of Toledo Medical CenterComment on above:Performed By: #### CBC, PT, PTT, BMP #### [facility] [address] [place] [address] Train Braker: Casey Marques MD #### ANICOT #### [facility] [address] [place], [place] [id number] Train Braker: Ariella Ward<2NormalTrumbull Memorial Hospital Comment on above:Performed By: #### CBC, PT, PTT, BMP #### [facility] [address] [place] [address] Train Braker: Casey Marques MD #### ANICOT #### [facility] [address] [place], [place] [id number] Train Braker: Jaja Wardotine<2NormalTrumbull Memorial Hospital Comment on above:Result Comment: (NOTE) Consistent with [...] positive. Test developed and characteristics determined by [facility]. See Compliance Statement B: [employer]/CS Performed By: [facility] [address] [place] [address] Ware Tester: VERONICA Barerformed By: #### CBC, PT, PTT, BMP #### [employer] [facility] [place] [address] Train Braker: Casey Marques MD #### ANICOT #### [facility] [address] [place] [address] Train Braker: Shani WardSaint Joseph London [address]-DN-Tkmubwow<2ng/mL [facility]- [place], KYCotinine<2ng/mLMerAdim8 Health- [place], KYNicotine<2ng/mLMercy Health- [place], KYComment on [...] positive. Test developed and characteristics determined by [employer] [facility]. See Compliance Statement B: [employer]/CS Performed By: [facility] [address] [place] [address] Ware Tester: Lynn Layne MD EKG 12 Leadon 10-71-1516Wawegr Uizv47XJZRpxpzOhioHealth [facility]field Hospital, KYP Wlke66lkrvwhiDzzpc Health- [place], KYP-R Ieykclpe284 [facility] [place], KYQ-T [id number] [facility], KYQRS Dvvsohze62 [facility] [place], KYQTc Calculation (Tamelatt)500 [facility], KYR Bfup97rqbimuuVdctc Health- [place], KYT Gdvg74agmnzhiNuyrf Health- [place], KYVentricular Oqxu16RCFObsgi Health- [place], KYNormal sinus rhythm with sinus arrhythmia Prolonged QT Abnormal ECG No previous ECGs availableOhioHealth Southeastern Medical Center, [place] Incoming [facility] [place] [facility] 04/23/2020 12:32 PM EST Normal sinus rhythm with sinus arrhythmia Prolonged QT Abnormal ECG No previous ECGs availableOhioHealth Southeastern Medical Center, TXAPTValleywise Health Medical Center 34-90-4828uXIB Coag (Bld) [Time]22.2 fZujqpu09.5-30.5Tr[facility] Memorial HospitalComment on above: Result Comment: IV Heparin Therapy Range: 48.6-77.8Performed By: #### CBC, PT, PTT, BMP #### [employer] [address] [place] [address] Train Braker: Casey Marques MD #### ANICOT #### [facility] [address] [place] [address] Train Braker: Adolph Diaz MDaPTGino Coag (Bld) [Time]22.2 [facility] [place] Comment on above: IV Heparin Therapy Range: 48.6-77.8 Basic Metabolic Panelon 64-93-3641Gmkid gap [Moles/Vol]12 mmol/L9 - 17 mmol/L [facility], KYBun/Cre RatioNOT REPORTEDOhioHealth Southeastern Medical Center, KYCalcium [Mass/Vol]9.2 mg/dL8.6 - 10.4 mg/dLOhioHealth Southeastern Medical Center, KYChloride [Moles/Vol]104 mmol/L98 - 107 mmol/LMCincinnati VA Medical Center, KYCO2 [Moles/Vol]23 mmol/L20 - 31 mmol/L [facility], KYCreatinine [Mass/Vol]0.69 mg/dL0.5 - 0.9 mg/dLOhioHealth Southeastern Medical Center, KYGFR >60>60 mL/minOhioHealth Southeastern Medical Center, KYGFR Non->60>60 mL/minOhioHealth Southeastern Medical Center, KYGFR/1.73 sq M predicted among non- blacks MDRD (S/P/Bld) [Vol rate/Area]NOT REPORTEDOhioHealth Southeastern Medical Center, KYGFR/1.73 sq M predicted among non-blacks MDRD (S/P/Bld) [Vol rate/Area][facility], [place] Comment on above:Average GFR for 20-29 years old: 116 mL/min/1.73sq m Chronic Kidney Disease: <60 mL/min/1.73sq m Kidney failure: <15 mL/min/1.73sq m eGFR calculated using average adult body mass. Additional eGFR calculator available at: http://www.[employer]/multiple_crcl_2011.htm Glucose [Mass/Vol]123 mg/zGNayv82 - 99 mg/dLOhioHealth Southeastern Medical Center, KYInterpretation and review of laboratory resultsAbnormalOhioHealth Southeastern Medical Center, KYPotassium [Moles/Vol]4.1 mmol/L3.7 - 5.3 mmol/LMCincinnati VA Medical Center, KYSodium [Moles/Vol]139 mmol/L135 - 144 mmol/LMCincinnati VA Medical Center, KYUrea nitrogen [Mass/Vol]7 mg/dL6 - 20 mg/dLOhioHealth Southeastern Medical Center, KYBasic Metabolic Profon 04-22-2020(cont.)NormalTrumbull Memorial HospitalComment on above:Result Comment: Average GFR for 20-29 years old: 116 mL/min/1.73sq m Chronic Kidney Disease: <60 mL/min/1.73sq m Kidney failure: <15 mL/min/1.73sq m eGFR calculated using average adult body mass. Additional eGFR calculator available at: http://www.[employer]ume[employer].com.Rec[employer]Match/multiple_crcl_2012.htmPerformed By: #### CBC, PT, PTT, BMP #### [employer] [address] [place] [address] Train Braker: Casey Marques MD #### ANICOT #### [facility] [address] [place] [address] Train Braker: Dontae Ward gap [Moles/Vol]12 mmol/LNormal9-17[facility] HospitalComment on above:Performed By: #### CBC, PT, PTT, BMP #### [address] [address] Train Braker: Casey Marques MD #### ANICOT #### [facility] [address] Train Braker: XIN Wardalcium [Mass/Vol]9.2 mg/dLNormal8.6-10.4[facility] HospitalComment on above:Performed By: #### CBC, PT, PTT, BMP #### [address] [address] Train Braker: Casey Marques MD #### ANICOT #### [facility] [address] [place] [address] Train Braker: XIN Wardhloride [Moles/Vol]104 mmol/VZasdgh43-898BuaybTrumbull Memorial HospitalComment on above:Performed By: #### CBC, PT, PTT, BMP #### [employer] [address] [place] [address] Train Braker: Casey Marques MD #### ANICOT #### [facility] [address] [place] [address] Train Braker: XIN WardO2 [Moles/Vol]23 mmol/YWwrmog70-44DlqljTrumbull Memorial HospitalComment on above:Performed By: #### CBC, PT, PTT, BMP #### [facility] [address] [place] [address] Train Braker: Casey Marques MD #### ANICOT #### [facility] [address] [place] [address] Train Braker: XIN Wardreatinine [Mass/Vol]0.69 mg/dLNormal0.50-0.90 [facility] HospitalComment on above:Performed By: #### CBC, PT, PTT, BMP #### [facility] [address] [place] [address] Train Braker: Casey Marques MD #### ANICOT #### [facility] [address] [place], [place] [id number] Train Braker: Adolph Diaz MDGFR, Amer>60Normal>60[facility] HospitalComment on above:Performed By: #### CBC, PT, PTT, BMP #### [facility] [address] [place] [address] Train Braker: Casey Marques MD #### ANICOT #### [facility] [address] [place] [address] Train Braker: Adolph Diaz MDGFR,non Amer>60Normal>60[facility] HospitalComment on above:Performed By: #### CBC, PT, PTT, BMP #### [facility] [address] [place] [address] Train Braker: Casey Marques MD #### ANICOT #### [facility] [address] [place] [address] Train Braker: Adolph Diaz MDGlucose [Mass/Vol]123 mg/sFIhsm76-03LghdvEl [facility] Regional Medical CenterComment on above:Performed By: #### CBC, PT, PTT, BMP #### [address] [address] Train Braker: Casey Marques MD #### ANICOT #### [facility] [address] [place] [address] Train Braker: VERONICA Wardotassium [Moles/Vol]4.1 mmol/LNormal3.7-5.3MEl [facility] CenterComment on above:Performed By: #### CBC, PT, PTT, BMP #### [address] [address] Train Braker: Casey Marques MD #### ANICOT #### [address] [address] Train Braker: JACINTO Wardodium [Moles/Vol]139 mmol/TUhlpec945-570IfhguTrumbull Memorial HospitalComment on above:Performed By: #### CBC, PT, PTT, BMP #### [address] [address] Train Braker: Casey Marques MD #### ANICOT #### [facility] [address] [place] [address] Train Braker: Adolph Diaz MDUrea nitrogen [Mass/Vol]7 mg/dLNormal6-20[facility] HospitalComment on above:Performed By: #### CBC, PT, PTT, BMP #### [address] [address] Train Braker: Casey Marques MD #### ANICOT #### [facility] [address] Train Braker: Adolph Diaz MDBUTanja/CRE RatioNOT REPORTEDNoatrium health steele creek20Tr[facility] Memorial HospitalComment on above:Performed By: #### CBC, PT, PTT, BMP #### [facility] [address] [place] [address] Train Braker: Casey Marques MD #### ANICOT #### [facility] [address] [place] [address] Train Braker: JACINTO Wardtaging:NOT REPORTEDNoalTrumbull Memorial HospitalComment on above:Performed By: #### CBC, PT, PTT, BMP #### [facility] [address] [place] [address] Train Braker: Casey Marques MD #### ANICOT #### [facility] [address] [place] [address] Train Braker: XIN Wardmanisha 29-93-8284Torvnfckezn distribution width (RBC) [Ratio]14.6 %High11.8-14.4[facility] HospitalComment on above:Performed By: #### CBC, PT, PTT, BMP #### [facility] [address] [address] Train Braker: Casey Marques MD #### ANICOT #### [facility] [address] [place] [address] Train Braker: Adolph Diaz MDHematocrit (Bld) [Volume fraction]40.8 %Normal 36.3-47.1[facility]csf Medical CenterComment on above:Performed By: #### CBC, PT, PTT, BMP #### [facility] [address] [address] Train Braker: Casey Marques MD #### ANICOT #### [facility] [address] [place], [place] [id number] Train Braker: Adolph Diaz MDHemoglobin (Bld) [Mass/Vol]12.8 g/dLNormal 11.9-15.1MEl [facility] CenterComment on above:Performed By: #### CBC, PT, PTT, BMP #### [address] [id number] Train Braker: Casey Marques MD #### ANICOT #### [facility] [address] [place], [place] [id number] Train Braker: YESSICA WardCH (RBC) [Entitic mass]26.5 qhKocqgu34.2-33.5 [facility] HospitalComment on above:Performed By: #### CBC, PT, PTT, BMP #### [address] [address] Train Braker: Casey Marques MD #### ANICOT #### [facility] [address] [place], [place] [id number] Train Braker: NIMCO WardC (RBC) [Mass/Vol]31.4 g/sZZupvzj68.4-34.8 [facility] HospitalComment on above:Performed By: #### CBC, PT, PTT, BMP #### [address] [id number] Train Braker: Casey Marques MD #### ANICOT #### [facility] [address] [place], [place] [id number] Train Braker: YESSICA WardCV (RBC) [Entitic vol]84.5 oUTtcdpi93.6-102.9 [facility] HospitalComment on above:Performed By: #### CBC, PT, PTT, BMP #### [address] [address] Train Braker: Casey Marques MD #### ANICOT #### [facility] [address] [place] [address] Train Braker: Adolph Diaz MDNRBC Automated0.0 per 100 WBCNormal0.0[facility] HospitalComment on above:Performed By: #### CBC, PT, PTT, BMP #### [facility] [address] [place] [address] Train Braker: Casey Marques MD #### ANICOT #### [facility] [address] [place] [address] Train Braker: Stephan Ward mean volume (Bld) [Entitic vol]8.7 fL Normal8.1-13.5[facility] HospitalComment on above:Performed By: #### CBC, PT, PTT, BMP #### [place] [address] Train Braker: Casey Marques MD #### ANICOT #### [facility] [address] [place] [address] Train Braker: Yajaira Ward (Bld) [#/Vol]298 10*3/fIQyfvac197-929 [facility] HospitalComment on above:Performed By: #### CBC, PT, PTT, BMP #### [place] [address] Train Braker: Casey Marques MD #### ANICOT #### [facility] [address] [place] [address] Train Braker: RAYMON Ward (Bld) [#/Vol]4.83 10*6/uLNormal3.95-5.11[facility] HospitalComment on above:Performed By: #### CBC, PT, PTT, BMP #### [place] [id number] Train Braker: Casey Marques MD #### ANICOT #### [facility] [address] [place] [address] Train Braker: Adolph Diaz MDWBC (Bld) [#/Vol]10.8 10*3/uLNormal3.5-11.3[facility]sf Medical CenterComment on above:Performed By: #### CBC, PT, PTT, BMP #### [facility] [address] [place], [place] [id number] Train Braker: Casey Marques MD #### ANICOT #### [facility] [address] [place] [address] Train Braker: Adolph Diaz MDErythrocyte distribution width (RBC) [Ratio]14.6 %High11.8 - 14.4 %[facility], TXHematocrit (Bld) [Volume fraction]40.8 % 36.3 - 47.1 %[facility], TXHemoglobin (Bld) [Mass/Vol]12.8 g/dL11.9 - 15.1 g/dLOhioHealth Southeastern Medical Center, TXInterpretation and review of laboratory resultsAbnormal [facility], [facility] (RBC) [Entitic mass]26.5 pg25.2 - 33.5 pgOhioHealth Southeastern Medical Center, [facility] CITYHC (RBC) [Mass/Vol]31.4 g/dL28.4 - 34.8 g/dLOhioHealth Southeastern Medical Center, [facility] CITYV (RBC) [Entitic vol]84.5 fL82.6 - 102.9 fLTrinity Health System- [place], TXPlatelet mean volume (Bld) [Entitic vol]8.7 fL8.1 - 13.5 fLTrinity Health System- [place], KYPlatelets (Bld) [#/Vol]298 10*3/uLTrinity Health System- [place], KYRBC (Bld) [#/Vol]4.83 10*6/uL3.95 - 5.11 m/[facility]- [place], KYWBC (Bld) [#/Vol]10.8 10*3/uLOhioHealth Southeastern Medical CenterNORMAWBC (Bld) [#/Vol]0.0 10*3/uL0.0 per 100 WBCOhioHealth Southeastern Medical CenterHectoron [id number] acute cardiopulmonary findingsOhioHealth Southeastern Medical CenterNORMAEXAMINATION: TWO XRAY VIEWS OF THE CHEST 04/22/2020 2:46 pm COMPARISON: Baseline examination HISTORY:ORDERING SYSTEM PROVIDED HISTORY: preop gastric bypass [employer] TECHNOLOGIST PROVIDED HISTORY: preop gastric bypass Ben En Y Reason for Exam: preop gastric bypass FINDINGS: Normal cardiopericardialsilhouette There are no significant pleural, parenchymal, mediastinal or osseous findingsOhioHealth Southeastern Medical CenterNORMASilver Madrid Incoming Radiant Results From [employer] - 04/22/2020 3:28 PM EST EXAMINATION: TWO XRAY VIEWS OF THE CHEST 04/22/2020 2:46 pm COMPARISON: Baseline examination HISTORY: ORDERING SYSTEM PROVIDED HISTORY: preop gastric bypass Ben [employer] Y TECHNOLOGIST PROVIDED HISTORY: preop gastric bypass Ben En Y Reason for Exam: preop gastric bypass FINDINGS: Normal cardiopericardial silhouette There are no significant pleural, parenchymal, mediastinal or osseous findings IMPRESSION: No acute cardiopulmonary findings [facility] CenterEricka [id number] Coag (PPP) [Relative time]0.9 {INR}Normal [facility] HospitalComment on above:Result Comment: Therapeutic Range: Moderate Anticoagulant Intensity: INR = 2.0-3.0 High Anticoagulant Intensity: INR = 2.5-3.5Performed By: #### CBC, PT, PTT, BMP #### [employer] [address] [place], [place] [id number] Train Braker: Casey Marques MD #### ANICOT #### [facility] [address] [place] [address] Train Braker: CULLEN Ward Coag (PPP) [Time]9.3 sNormal9.0-12.0[facility] HospitalComment on above:Performed By: #### CBC, PT, PTT, BMP #### [employer] [address] [place] [address] Train Braker: Casey Marques MD #### ANALI #### [facility] [address] [place] [address] Train Braker: VERONICA Wardrotime-INRon [id number] Coag (PPP) [Relative time]0.9 {INR}[place], NORMACompromedica [facility] regional hospital on above: Therapeutic Range: Moderate Anticoagulant Intensity: INR = 2.0-3.0 High Anticoagulant Intensity: INR = 2.5-3.5 PT Coag (PPP) [Time]9.3 sMmadison health [facility] [place], KYXR CHEST (2 VW)on 23-52-6520DE CHEST (2 VW)EXAMINATION: TWO XRAY VIEWS OF [...] Signed by: Roxanne Avitia MD 04/22/20 Final resultNoWexner Medical Center Vital Signs Date TimeVital SignValuePerforming EysnsiykkAljnfswo85-99-3712 13:26-0500Body mass index (BMI) [Ratio]40.03 kg/a3Owcii Juan DO Work Phone: [facility] CareIbrltffsit69-33-9344 13:26-0500Body xahtto742.18 kgCorey Jaun DO Work Phone: [facility] CarePzjtittcnp89-17-5426 13:26-0500Diastolic blood xidnxihb21 mm[Hg]Les Juan DO Work Phone: [facility] CareMdlcpxroir02-13-7924 13:26-0500Systolic blood nbrbwygw821 mm[Hg]Les Juan DO Work Phone: [facility] CareLgtowaxung91-03-0977 14:43-0400Body mass index (BMI) [Ratio]39.77 kg/m2Amy Millville PA Work Phone: [phone]-[facility] CareMsoxigqfmt30-46-3804 14:43-0400Body uuahqh607.33 kgAmy Millville PA Work Phone: [facility] CareSfbexksazt75-19-5701 14:43-0400Diastolic blood wupredsb97 mm[Hg]Jojo Ames PA Work Phone: [phone]-[facility] CareItpabsbshd57-97-5990 14:43-0400Systolic blood rgejlxll198 mm[Hg]Jojo Pelaezey PA Work Phone: [phone] [place], [place] [address]Jrlzjbiwze96-33-0878 11:34-0400Body mass index (BMI) [Ratio]38.49 kg/r1NdfhlwpnMima Duenas PLUMBING MECHANIC Work Phone: [phone]-[facility] CareCgadslrgfc19-75-9253 11:34-0400Body ukqmio819.19 kgMima Duenas PLUMBING MECHANIC Work Phone: [phone] [place], [place] [address]Hisntintlz13-47-5515 11:34-0400Diastolic blood jrglluoa72 mm[Hg]Mima Duenas PLUMBING MECHANIC Work Phone: [phone] [place], [place] [address]Epgimknehz24-57-6734 11:34-0400Systolic blood eearrfex346 mm[Hg]Mima Duenas PLUMBING MECHANIC Work Phone: [phone] [place], [place] [address]Xxayedvizr08-19-0054 10:01-0400Body mass index (BMI) [Ratio]36.79 kg/m2Amy Kwaku PA Work Phone: [phone] [place], [place] [address]Ciywlgefxa98-98-2924 10:01-0400Body .66 kgAmy Kwaku PA Work Phone: [phone] [place], [place] [address]Jvioxuryvf35-63-4727 10:01-0400Diastolic blood vislxgiu23 mm[Hg]Jojo Ames PA Work Phone: [phone] [place], [place] [address]Ankldbqvhg72-17-0349 10:01-0400Systolic blood vixawiye452 mm[Hg]Jojo Ames PA Work Phone: [phone] [place], [place] [address]Ecdimbzzah35-82-6406 12:46-0400Body fwrweb315.3 cmEnrike Lindquist MD Work Phone: [phone] [place], [place] 1832408-20-2025 12:46-0400Body mass index (BMI) [Ratio]35.84 kg/l7BywcweeeEnrike Lindquist MD Work Phone: [phone] [place], [place] 1832408-20-2025 12:46-0400Body bfqidw970.57 kgEnrike Lindquist MD Work Phone: [phone] [place], [place] 1832408-20-2025 12:46-0400Diastolic blood jdzwpway31 mm[Hg]Enrike Lindquist MD Work Phone: [phone] [place], [place] 1832408-20-2025 12:46-0400Heart rate 73 /minEnrike Lindquist MD Work Phone: [phone] [place], [place] 1832408-20-2025 12:46-0400Systolic blood hkodxctq02 mm[Hg]Enrike Lindquist MD Work Phone: [phone] [place], [place] 1832408-17-2025 23:35-0400Body rfkuyg443.34 cmAmanda Shethrbacher [employer]ACLE OBIEE DEVELOPER Work Phone: [facility]08-17-2025 23:35-0400 Body gqlmjaswdcs64.2 [degF]Amanda Ford [employer]BIEE DEVELOPER Work Phone: [facility]08-17-2025 23:35-0400 Body zargoq945.66 kgAmanda Shethrbacher [employer]LE OBIEE DEVELOPER Work Phone: [facility]08-17-2025 23:35-0400 Diastolic blood ouzhbfbr58 mm[Hg]Amanda Ford [employer]ACLE OBIEE DEVELOPER Work Phone: [facility]08-17-2025 23:35-0400 Heart rate75 /minArtemionnedmundo Shethrbacher [employer]LE OBIEE DEVELOPER Work Phone: [facility]08-17-2025 23:35-0400 Respiratory rate16 /minAmanda Shethrbacher [employer]ACLE OBIEE DEVELOPER Work Phone: [facility]08-17-2025 23:35-0400 SaO2% (BldA) [Mass fraction]97 %Amanda Ford [employer]ACLE OBIEE DEVELOPER Work Phone: [facility]08-17-2025 23:35-0400 Systolic blood kyedhmuj894 mm[Hg]Amanda Hahnnikkie [employer]ACLE OBIEE DEVELOPER Work Phone: [facility]08-05-2025 10:37-0400 Body yfzgpi158.1216 kgAmanda Ford [employer]LE [employer]BIEE DEVELOPER Work Phone: [facility]08-05-2025 09:10-0400 Body mass index (BMI) [Ratio]35.7 kg/o3Kqydd Juan DO Work Phone: [facility] CarePdemomamqj53-52-9711 09:10-0400Body ihaknw451.12 kgCorey Juan DO Work Phone: [facility] CareXgydzkrgjg59-60-9175 09:10-0400Diastolic blood bfzxomxi19 mm[Hg]Les Juan DO Work Phone: [facility] CareFbjgzotfdh77-41-3364 09:10-0400Systolic blood tjmxulqm170 mm[Hg]Les Juan DO Work Phone: [facility] CareGqvyicfppm23-67-4765 11:28-0400Body mass index (BMI) [Ratio]31.24 kg/r2Syxwu Juan DO Work Phone: [facility] CareHgmfbeuayy52-27-0416 11:28-0400Body .61 kgCorey Juan DO Work Phone: [facility] CareDvcwyyhcao59-65-4471 11:28-0400Diastolic blood igehitum59 mm[Hg]Les Juan DO Work Phone: [facility] CareNghnclfqmi12-84-3346 11:28-0400Systolic blood wuiabwsa522 mm[Hg]Les Juan DO Work Phone: [facility] CareVrcopnfdmi67-81-8594 13:34-0400Diastolic blood uehtixvy61 mm[Hg]Amanda Logan [employer]BIEE DEVELOPER Work Phone: [facility]07-03-2025 13:34-0400 Heart rate60 /Juan Pablo Logan [employer]ACLE OBIEE DEVELOPER Work Phone: [phone]07-03-2025 13:34-0400 Respiratory rate18 /Jhonnyaicha Ford [employer]LE [employer]BIEE DEVELOPER Work Phone: [phone]07-03-2025 13:34-0400 SaO2% (BldA) [Mass fraction]99 %Amanda Logan [employer]BIEE DEVELOPER Work Phone: [phone]07-03-2025 13:34-0400 Systolic blood rkxyjccl240 mm[Hg]Amanda Shethbilly [employer]LE [employer]BIEE DEVELOPER Work Phone: [phone] [place], [place] 4355307-03-2025 10:38-0400 Body xryvmx933.34 cmAmanda Shethbilly [employer]LE [employer]BIEE DEVELOPER Work Phone: [phone]07-03-2025 10:38-0400 Body enfkbxjhabi47.1 [degF]Amanda Shethbilly [employer]LE [employer]BIEE DEVELOPER Work Phone: [phone]07-03-2025 10:38-0400 Body kzeisf681.85 kgAmanda Shethbilly [employer]LE [employer]BIEE DEVELOPER Work Phone: [phone]06-05-2025 15:06-0400 Body mass index (BMI) [Ratio]31.24 kg/m2[facility]06-05-2025 15:06-0400Body .61 kgL[facility]06-05-2025 15:06-0400 Diastolic blood sqgxnxor78 mm[Hg][facility]06-05-2025 15:06-0400 Systolic blood xqkgcnyu737 mm[Hg][facility]05-07-2025 10:04-0400 Body ydgtbn104.3 Kam Sinclair MD Work Phone: [phone]05-07-2025 10:04-0400Body mass index (BMI) [Ratio]29.99 kg/a8ElejlDarleen Sinclair MD Work Phone: [phone] [place], [place] 0534205-07-2025 10:04-0400Body ajdizd67.52 kgDarleen Sinclair MD Work Phone: [phone] [place], [place] 0534205-07-2025 10:04-0400Diastolic blood hiaxpimn39 mm[Hg]Darleen Sinclair MD Work Phone: [phone] [place], [place] 0534205-07-2025 10:04-0400Heart rate67 /min Darleen Sinclair MD Work Phone: [phone] [place], [place] 0534205-07-2025 10:04-0400Respiratory rate16 /minDarleen Sinclair MD Work Phone: [phone] [place], [place] 0534205-07-2025 10:04-2338McR4% (BldA) [Mass fraction]99 %Darleen Sinclair MD Work Phone: [phone] [place], [place] 0534205-07-2025 10:04-0400Systolic blood ovbkdauf481 mm[Hg]Darleen Sinclair MD Work Phone: [phone] [place], [place] 0534201-09-2025 08:32-0500Body uerwtb069.34 cmMer[facility]01-09-2025 08:32-0500Body mass index (BMI) [Ratio]30.4 kg/z4BrjdzlwuyMercy Health Allen Hospital01-09-2025 08:32-0500Body phtrqoviyvl00.3 [degF][facility]01-09-2025 08:32-0500Body .99 kgMer[facility] Health [facility] Hospital01-09-2025 08:32-0500Diastolic blood rxciklhy10 mm[Hg][facility]01-09-2025 08:32-0500 Heart rate73 /minMercy Health Allen Hospital01-09-2025 08:32-3785SyJ8% (BldA) [Mass fraction]98 %[facility]01-09-2025 08:32-0500 Systolic blood afdwcftw345 mm[Hg][facility]11-12-2024 14:03-0500Body yuracx720.3 cmIgnacio Guy MD Work Phone: [phone] Valley Health SystemPfsanx24-73-4035 14:03-0500Body mass index (BMI) [Ratio]30.23 kg/e8FoqeqiIgnacio Guy MD Work Phone: [facility] Fyllch37-62-2359 14:03-0500Body .3 kgIgnacio Guy MD Work Phone: [facility]and Twiebe34-59-3915 15:12-0500Body mass index (BMI) [Ratio]31.71 kg/w2Qaewb Juan DO Work Phone: [facility] CareXyzismbebu52-46-0551 15:12-0500Body .25 kgCorey Juan DO Work Phone: [facility] CareCgsdsfjdnt68-92-6241 15:12-0500Diastolic blood guvodhhe85 mm[Hg]Les Juan DO Work Phone: [facility] CareHtkqywrkfm68-24-6820 15:12-0500Systolic blood qylfagkf355 mm[Hg]Les Juan DO Work Phone: [facility] CareWrirheqehe03-35-3075 11:46-0400Diastolic blood jefikpap99 mm[Hg]MELY Ford Work Phone: [facility]08-21-2024 11:46-0400 Heart rate76 /minAPRTanja Ford Work Phone: [facility]08-21-2024 11:46-0400 Respiratory rate16 /minAPRTanja Ford Work Phone: [facility]08-21-2024 11:46-0400 SaO2% (BldA) [Mass fraction]99 %MELY Ford Work Phone: [facility]08-21-2024 11:46-0400 Systolic blood umcoyxwx404 mm[Hg]MELY Ford Work Phone: [phone]08-21-2024 10:20-0400 Body mzcarupuxiz64 [degF]MELY Ford Work Phone: [phone]08-21-2024 09:55-0400 Inhaled oxygen flow rate3 L/minMELY Ford Work Phone: [phone]08-21-2024 06:29-0400 Body sjpgzy042.34 Justo Hahnr Work Phone: [phone]08-21-2024 06:29-0400 Body slbned87.25 kgMELY Hahnr Work Phone: [phone]07-16-2024 11:56-0400 Body cdufzt987.34 Justo Hahnr Work Phone: [phone]07-16-2024 11:56-0400 Body mass index (BMI) [Ratio]28.8 kg/m2MELY Hahnr Work Phone: [phone]07-16-2024 11:56-0400 Body ojewgx35.89 kgMELY Hahnr Work Phone: [phone] [place], [place] 4355302-21-2024 14:56-0500 Body .34 cmMer[facility]02-21-2024 14:56-0500Body mass index (BMI) [Ratio]29.4 kg/j2MellmmiizMercy Health Allen Hospital02-21-2024 14:56-0500Body vncyuf68.7 kgMercy Health [facility] Hospital02-21-2024 14:56-0500Diastolic blood lwcdjwqu71 mm[Hg][facility] 06-08-2023 14:56-0500Heart rate51 /minMercy Health Allen Hospital 06-08-2023 14:56-8415BoL8% (BldA) [Mass fraction]98 %[facility]02-21-2024 14:56-0500Systolic blood dkqiamvf497 mm[Hg][facility]01-30-2024 14:30-0500Body ytdgrw026.34 cmGuillepamela Millerley Other [facility]01-30-2024 14:30-0500 Body mass index (BMI) [Ratio]27.47 kg/t9CuaffRomeo Santana Other [employer] Other 01-30-2024 14:30-0500Body kvucac76.36 kgGuillepamela Esther Other [employer] Other 01-30-2024 14:30-0500Body twskak09.35 kgMercy Health [facility] Hospital10-23-2023 14:30-0400Body .34 cmPetr Lay Other [employer] Other 10-23-2023 14:30-0400Body mass index (BMI) [Ratio] 27.61 kg/h1GufcxarPetr Lay Other [employer] Other 10-23-2023 14:30-0400Body ovgnqcvauvx05.1 [degF] Petr Lay Other [employer] Other 10-23-2023 14:30-0400Body nyynwo73.81 kgPetr Lay Other [employer] Other 10-23-2023 14:30-0400Diastolic blood nuafvnax97 mm[Hg] Petr Lay Other [employer] Other 10-23-2023 14:30-3520EiP9% (BldA) [Mass fraction]99 % Petr Lay Other [employer] Other 10-23-2023 14:30-0400Systolic blood dovwpgyx143 mm[Hg] Petr Lay Other [employer] Other 09-11-2023 11:30-0400Body kurvxs955.34 cmMajose guadalupe Lay Other [employer] Other 09-11-2023 11:30-0400Body mass index (BMI) [Ratio] 28.03 kg/y6QbpuqtfPetr Lay Other [employer] Other 09-11-2023 11:30-0400Body .17 kgMajose guadalupe Lay Other [employer] Other 09-11-2023 11:30-0400Diastolic blood birridbk99 mm[Hg] Petr Lay Other [employer] Other 09-11-2023 11:30-0400Respiratory rate18 /minMattnany Lay Other [employer] Other 09-11-2023 11:30-4967UvI4% (BldA) [Mass fraction]99 % Petr Lay Other [employer] Other 09-11-2023 11:30-0400Systolic blood bbyhtzxh276 mm[Hg] Petr Lay Other [employer] Other 06-26-2023 13:30-0400Body gypfih212.34 cmMajose guadalupe Lay Other [employer] Other 06-26-2023 13:30-0400Body mass index (BMI) [Ratio] 28.78 kg/n1MlvrujlPetr Lay Other [employer] Other 06-26-2023 13:30-0400Body .62 kgPetr Lay Other [employer] Other 06-26-2023 13:30-0400Diastolic blood ncyyhaxk78 mm[Hg] Petr Lay Other [employer] Other 06-26-2023 13:30-0400Respiratory rate18 /minPetr Lay Other [employer] Other 06-26-2023 13:30-2759HuB3% (BldA) [Mass fraction]98 % Petr Lay Other [employer] Other 06-26-2023 13:30-0400Systolic blood dgagpywm254 mm[Hg] Petr Lay Other [employer] Other 06-15-2023 08:00-0400Body rjeayg548.34 cmJephamifer Merylrbacher Other [employer] Other 06-15-2023 08:00-0400Body mass index (BMI) [Ratio] 28.03 kg/j9Zearjvia Rohrbacher Other [employer] Other 06-15-2023 08:00-0400Body ergqnv80.17 kgJephamifer Rohrbacher Other [employer] Other 06-15-2023 08:00-0400Diastolic blood mm[Hg] Amanda Rosarioacher Other [employer] Other 06-15-2023 08:00-4368AzH2% (BldA) [Mass fraction]95 % Amanda Jovanir Other [employer] Other 06-15-2023 08:00-0400Systolic blood mm[Hg] Amanda Jovanir Other [employer] Other 05-10-2023 15:30-0400Body .34 cmAmanda Merylrbacher Other [employer] Other 05-10-2023 15:30-0400Body mass index (BMI) [Ratio] 29.15 kg/o9Gdrrhnvz Merylrbacher Other [employer] Other 05-10-2023 15:30-0400Body kimqlj13.8 kgAmanda Merylrbacher Other [employer] Other 05-10-2023 15:30-0400Diastolic blood nstbfsia72 mm[Hg] Amanda Rosarioacher Other [employer] Other 05-10-2023 15:30-0400Systolic blood ctzvbvxo817 mm[Hg] Amanda Merylrbacher Other [employer] Other 05-05-2023 11:00-0400Body .34 cmAmanda Shethrbacher Other [employer] Other 05-05-2023 11:00-0400Body mass index (BMI) [Ratio] 28.73 kg/r3VdgwcnjjAmanda Ford Other [employer] Other 05-05-2023 11:00-0400Body uattgq15.44 kgAmanda Ford Other [employer] Other 05-05-2023 11:00-0400Diastolic blood eezhbujf31 mm[Hg] Amanda Shethbilly Other [employer] Other 05-05-2023 11:00-4032EfT9% (BldA) [Mass fraction]100 % Amanda Logan Other [employer] Other 05-05-2023 11:00-0400Systolic blood bhfigdzn847 mm[Hg] Amanda Logan Other [employer] Other 02-24-2023 16:43-0500Body xwwyalmkvnp06.1 [degF]MD Mariam Appiah Work Phone: [facility]02-24-2023 16:43-0500 Diastolic blood ckuklynv23 mm[Hg]MD Mariam Appiah Work Phone: [facility]02-24-2023 16:43-0500 Heart rate60 /minMD Mariam Appiah Work Phone: [facility]02-24-2023 16:43-0500 Respiratory rate16 /minMD Mariam Appiah Work Phone: [facility]02-24-2023 16:43-0500 SaO2% (BldA) [Mass fraction]100 %MD Mariam Appiah Work Phone: 1(002)[address] [place], [place] 0690602-24-2023 16:43-0500 Systolic blood sprmpuri498 mm[Hg]MD Mariam Appiah Work Phone: 1(218)[address] [place], [place] 0690602-24-2023 09:40-0500 Body uqkcky307.34 cmMD Mariam Appiah Work Phone: 1(972)[address] [place], [place] 0690602-24-2023 05:42-0500 Body kgMD Mariam Appiah Work Phone: 1(828)[address] [place], [place] 0690602-23-2023 17:55-0500 Body jfweixlolxj73.1 [degF]MD Mariam Appiah Work Phone: 1(937)[address] [place], [place] 0690602-23-2023 17:55-0500 Diastolic blood ydpejfce95 mm[Hg]MD Mariam Appiah Work Phone: 1(017)[address] [place], [place] 0690602-23-2023 17:55-0500 Heart rate62 /minMD Mariam Appiah Work Phone: [phone] [place], [place] 0690602-23-2023 17:55-0500 Respiratory rate18 /minMD Mariam Appiah Work Phone: 1(614)[address] [place], [place] 0690602-23-2023 17:55-0500 SaO2% (BldA) [Mass fraction]100 %MD Mariam Appiah Work Phone: 1(995)[address] [place], [place] 0690602-23-2023 17:55-0500 Systolic blood yfklfacg819 mm[Hg]MD Mariam Appiah Work Phone: 1(068)[address] [place], [place] 0690602-23-2023 14:22-0500 Body hbujdu737.34 cmMD Marima Appiah Work Phone: 1(067)[address] [place], [place] 0690602-23-2023 14:22-0500 Body bhaifc09.7 kgMD Mariam Appiah Work Phone: 1(563)[address] [place], [place] 0690601-04-2023 15:00-0500 Body emragy054.34 cmAmanda Ponceacher Other [employer] Other 01-04-2023 15:00-0500Body mass index (BMI) [Ratio] 27.81 kg/e3CmhtkfasAmanda Shethbilly Other [facility] Other 01-04-2023 15:00-0500Body qakfrggmrlq04.2 [degF] Amanda Logan Other [facility] Other 01-04-2023 15:00-0500Body yiotgq03.45 kgAmanda Shethsarahachenikkie Other [facility] Other 01-04-2023 15:00-0500Diastolic blood ssrollyz96 mm[Hg] Amanda Logan Other [facility] Other 01-04-2023 15:00-0500Respiratory rate18 /minAmanda Shethbilly Other [facility] Other 01-04-2023 15:00-8280WzU5% (BldA) [Mass fraction]99 % Amandarufino Ford Other [facility] Other 01-04-2023 15:00-0500Systolic blood otaisykt941 mm[Hg] Amanda Ford Other [facility] Other 12-24-2022 21:41-0500Diastolic blood kozyyjay11 mm[Hg] MD Mariam Appiah Work Phone: [facility]12-24-2022 21:41-0500 Systolic blood rfpsodqg822 mm[Hg]MD Mariam Appiah Work Phone: 1(645)[address] [place], [place] [address]12-24-2022 18:14-0500 Body fgpleu299.34 cmMD Mariam Appiah Work Phone: 1(282)[address] [place], [place] [address]12-24-2022 18:14-0500 Body auheuseneqk13.1 [degF]MD Mariam Appiah Work Phone: 1(733)[address] [place], [place] [address]12-24-2022 18:14-0500 Body cxulgj23 kgMD Mariam Appiah Work Phone: 1(263)[address] [place], [place] [address]12-24-2022 18:14-0500 Heart ivze659 /minMD Mariam Appiah Work Phone: 1(335)[address] [place], [place] [address]12-24-2022 18:14-0500 Respiratory rate18 /minMD Mariam Appiah Work Phone: 1(189)[address] [place], [place] [address]12-24-2022 18:14-0500 SaO2% (BldA) [Mass fraction]100 %MD Mariam Appiah Work Phone: 1(592)[address] [place], [place] [address]12-22-2022 17:15-0500 Body qichxwtnyba80.5 [degF]MD Mariam Appiah Work Phone: 1(983)[address] [place], [place] [address]12-22-2022 17:15-0500 Diastolic blood ocotgxzq71 mm[Hg]MD Mariam Appiah Work Phone: 1(333)[address] [place], [place] [address]12-22-2022 17:15-0500 Heart rate59 /minMD Mariam Appiah Work Phone: 1(141)[address] [place] 0690612-22-2022 17:15-0500 Respiratory rate18 /minMD Mariam Appiah Work Phone: [phone] [place], [place] 0690612-22-2022 17:15-0500 SaO2% (BldA) [Mass fraction]100 %MD Mariam Appiah Work Phone: [phone] [place] [address] Qeiomr56-98-8652 17:15-0500 Systolic blood mm[Hg]MD Mariam Appiah Work Phone: [facility]12-22-2022 14:33-0500 Body ioulhf678.34 cmMD Mariam Appiah Work Phone: [facility]12-22-2022 14:33-0500 Body vcqyqh49.1 kgMD Mariam Appiah Work Phone: [facility]12-06-2022 15:30-0500 Body fekorp858.34 cmAmanda Shethrbacher Other [facility] Other 12-06-2022 15:30-0500Body mass index (BMI) [Ratio] 27.05 kg/j8VenvypfwAmanda Ponceacher Other [facility] Other 12-06-2022 15:30-0500Body uhnjzy96 kgJeaicha Merylrbacher Other [facility] Other 12-06-2022 15:30-0500Diastolic blood xgoaacjc14 mm[Hg] Amanda Ford Other [facility] Other 12-06-2022 15:30-2692CsZ0% (BldA) [Mass fraction]98 % Amanda Ford Other [facility] Other 12-06-2022 15:30-0500Systolic blood tlqizpjf559 mm[Hg] Amanda Ford Other [facility] Other 10-24-2022 10:00-0400Body fbppie162.34 cmAmanda Shethrbacher Other [facility] Other 10-24-2022 10:00-0400Body mass index (BMI) [Ratio] 27.47 kg/r8LjaspolqAmanda Ford Other [facility] Other 10-24-2022 10:00-0400Body prergh88.36 kgAmanda Shethsarahangelnikkie Other [facility] Other 10-24-2022 10:00-0400Diastolic blood hmbfsedk54 mm[Hg] Amanda Logan Other [facility] Other 10-24-2022 10:00-0400Systolic blood mm[Hg] Amanda Logan Other [place] [facility] Other 05-17-2022 14:38-0400Blood Pressure LocationSamir Thompson [facility]05-17-2022 14:38-0400 Diastolic blood cvpnrpse77 mm[Hg]Samir Thompson [facility]05-17-2022 14:38-0400Heart rate61 /minSamir Thompson [facility]05-17-2022 14:38-0400 Respiratory rate18 /minSamir Thompson [facility]05-17-2022 14:38-6243XeW7% (BldA) [Mass fraction]100 %Samir Thompson [facility]05-17-2022 14:38-0400 Systolic blood mqocxmnw046 mm[Hg]Samir Thompson [facility]04-08-2022 14:39-0400Blood Pressure LocationSamir Thompson [facility]04-08-2022 14:39-0400 Diastolic blood oagtbchg56 mm[Hg]Samir Thompson [facility]04-08-2022 14:39-0400Heart rate65 /minRogean Jay [facility]04-08-2022 14:39-0400 Respiratory rate18 /minSamir [facility]04-08-2022 14:39-7063YoM1% (BldA) [Mass fraction]100 %Samir Thompson [facility]04-08-2022 14:39-0400 Systolic blood gewhvlus372 mm[Hg]Samir Thompson [facility]03-31-2022 11:00-0400Body bxekjl087.34 cmArtemioaicha Ponceachenikkie Other [facility] Other 03-31-2022 11:00-0400Body mass index (BMI) [Ratio] 29.15 kg/b9LouxxqeaAmanda aHhnr Other [facility] Other 03-31-2022 11:00-0400Body ulssgv95.8 kgAmanda Ponceacher Other [facility] Other 03-31-2022 11:00-0400Diastolic blood edbhjfgi56 mm[Hg] Amanda Ford Other [facility] Other 03-31-2022 11:00-3757SmV2% (BldA) [Mass fraction]98 % Amanda Ford Other [facility] Other 03-31-2022 11:00-0400Systolic blood gnfmfyna227 mm[Hg] Amanda Ford Other [facility] Other 01-21-2021 08:20-0500Body Qsuedlosmpb56.7 [degF] [facility], FI70-25-1894 08:20-0500BP Mvcsgqcjw10 mm[Hg] [facility], FT54-72-5173 08:20-0500BP Jvsjtgkn095 mm[Hg] [facility], OI85-58-6882 08:20-0500Pulse (Heart Rate)101 /[facility], MV58-82-2301 08:20-0500Pulse Yqjbmrnr93 % [facility], XB97-80-3432 08:20-0500Respiratory Rate19 /min [facility], IJ58-28-6889 08:51-0500BMI (Body Mass Index) 58.86 kg/z7IyyzxskN[facility], HE41-99-5224 08:51-0500Body weight 191.42 kg[facility], JH04-37-9652 08:51-8294Kfzynp227.3 cm [facility], JO24-25-7961 13:30-0500BMI (Body Mass Index) 61.79 kg/m2[address], UO97-45-0572 13:30-0500Body Xhqnsbkiimy45.11 [degF][address], KP69-43-3494 13:30-0500Body .94 kgStvz 2 [facility], PZ85-51-2133 13:30-0500BP Ldqtyqecq47 mm[Hg][address], TM75-11-2605 13:30-0500BP Djonbola007 mm[Hg][address] [place] [address], ZL40-75-8763 13:30-3085Hxwcpp740.[address] [place] [address], LV84-59-8558 13:30-0500Pulse (Heart Rate)104 /minStvz [address] [place] [address], OP52-64-6549 13:30-0500Pulse Yqohjxiq59 %Stv[address] [place] [address], BA87-83-0234 13:30-0500 Respiratory Rate18 /minStvz [address] [place] [address], [place] Encounters Encounter DateEncounter TypeCare ProviderFacilityStart: 02-26-2025 End: 51-47-8301Sudenibma Result EncounterCorey Juan DO Work Phone: noms External Department UnsolicitedStart: 02-26-2025 End: 20-25-2290Rytxiyvrl Result EncounterCorey Juan DO Work Phone: noms External Department UnsolicitedStart: 02-19-2025 End: 20-54-4136Idhyok flowsheetCorey Juan DO Work Phone: [facility]BGYNStart: 02-19-2025 End: 64-27-2439Nbdphz flowsheetCorey Juan DO Work Phone: [facility] [place] OBGYNStart: 02-19-2025 End: 88-19-8789Jqvvdtjgv Result EncounterCorey Juan DO Work Phone: noms External Department UnsolicitedStart: 02-19-2025 End: 85-09-9886hmfgmvcjsmHLBNO FAZIONot AvailableStart: 02-19-2025 End: 22-34-6905Xpbwak outpatient visit 15 minutesCorey Juan DO Work Phone: noms [place] OBGYNComment on above:Third trimester ([facility]); 31 weeks gestation of ([facility]); TSH (thyroid-stimulating hormone deficiency); H/O gastric sleeveStart: 02-07-2025 End: 51-26-9732IcjjjyMolly Whitaker Women's Services 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 Real Time Analyst - Emily Old FortComment on above:Hypothyroidism affecting in second trimester (Primary Dx); headache in second trimester; Previous gastric bypass affecting , antepartum; 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 ([facility])Start: 02-06-2025 End: 09-33-1487Jhdgth outpatient visit 15 minutesJojo OGDEN Work Phone: [facility]BGYNComment on above:Third trimester ([facility]); 29 weeks gestation of ([facility])Start: 02-06-2025 End: 81-49-8617ofipaqcrdtGPT RAMEYNot AvailableStart: 02-06-2025 End: 30-20-3276Jgbasr Shakeel OGDEN Work Phone: [facility] [place] OBGYNStart: 02-06-2025 End: 41-94-3794Nwqtdv Shakeel OGDEN Work Phone: [facility] [place] OBGYNStart: 01-30-2025 End: 76-15-1176wzvwzlazrfXIPDZCTR TONYERMalgorzata AvailableStart: 01-16-2025 End: 61-42-3819Zylhfw Eliecer Duenas PLUMBING MECHANIC Work Phone: [facility] [place] OBGYNStart: 01-16-2025 End: 65-05-9406Obucim Eliecer Duenas PLUMBING MECHANIC Work Phone: [facility]BGYNStart: 01-16-2025 End: 23-91-8346Vfmhtr outpatient visit 15 minutesMima Duenas NP Work Phone: [facility] [place] OBGYNComment on above:26 weeks gestation of ([facility]); Second trimester ([facility]); TSH (thyroid-stimulating hormone deficiency)Start: 01-16-2025 End: 11-55-8510pkrbblpzufWOEMWPMD EBERLYNot AvailableStart: 01-11-2025 End: 57-62-4351Hdwefybng Result EncounterCorey Juan DO Work Phone: noms External Department UnsolicitedStart: 01-11-2025 End: 82-45-3626Upxbvwdad Result EncounterCorey Juan DO Work Phone: noms External Department UnsolicitedStart: 01-09-2025 End: 28-21-2017Mqgmmthqk Result EncounterAmy Kwaku OGDEN Work Phone: noms External Department UnsolicitedStart: 01-09-2025 End: 11-35-6755Rjszcxron Result EncounterAmy Kwaku OGDEN Work Phone: noms External Department UnsolicitedStart: 01-04-2025 End: 91-86-1592Xpxtwt Rosanna Dick RNMaternal- Medicine at [facility] CenterComment on above:Previous gastric bypass affecting , antepartum (Primary Dx); Hypothyroidism affecting in second trimester; 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 ([facility]); Obesity affecting in second trimester, unspecified obesity typeStart: 01-03-2025 End: 86-66-4526zofdibcuijFS PCP NO [facility] PPGStart: 01-03-2025 End: 54-67-5007Eafhnaopj encounterRoslyn Griffin RNMaternal Medicine [facility] SystemtonStart: 12-19-2024 End: 99-40-8306Wvnfhe flowsheetJojo OGDEN Work Phone: [facility] [place] OBGYNStart: 12-19-2024 End: 84-92-8520Dmksit flowsheetJojo OGDEN Work Phone: [facility]BGYNStart: 12-19-2024 End: 67-31-9737Lbzabu outpatient visit 15 minutesJojo OGDEN Work Phone: [facility] OBGYNComment on above:22 weeks gestation of ([facility]); Second trimester ([facility]); Thyroid disease ; H/O gastric sleeve; H/O iron deficiency anemia; Diabetes mellitus screeningStart: 12-19-2024 End: 47-18-0059tdrvnokgvlMVY RAMEYNot AvailableStart: 12-15-2024 End: 31-75-7601Ibxfxkvcl Result EncounterCorey Juan DO Work Phone: noms External Department UnsolicitedStart: 12-15-2024 End: 53-74-2494Phqdnqjgv Result EncounterCorey Juan DO Work Phone: noms External Department UnsolicitedStart: 12-05-2024 End: 47-27-7048Lstmdj consultation new/estab patient 80 Bal Lindquist MD Work Phone: [phone]-Peizm Medicine at [facility] Comment on above:20 weeks gestation of (Primary Dx); Previous gastric bypass affecting , antepartum; Obesity affecting in second trimester, unspecified obesity type; Hypothyroidism affecting in second trimester; 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 ([facility]); headache in second trimesterStart: 12-05-2024 End: 37-93-0878Ghtmra OnlyChiquita Shen RNMaternal- Medicine at [facility] CenterComment on above:Previous gastric bypass affecting , antepartum (Primary Dx); Hypothyroidism affecting in second trimester; 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 ([facility]); Obesity affecting in second trimester, unspecified obesity type; Encounter for supervision of resulting from assisted reproductive technology, antepartumStart: 12-04-2024 End: 08-03-8967jwxemaamyuAFSLR FAZIONot AvailableStart: 12-02-2024 End: 80-77-7488Gleqchn encounter procedureRichard A Visci DO-[address] [employer] - O/P Start: 12-02-2024 End: 46-81-3803rqyowjldmySugenlzw Rohrbacher APRN Work Phone: [facility] Work Phone: Start: 12-02-2024 End: 02-31-8966Hggfbwui Result EncounterRichard A Visci DO Work Phone: noms External Department UnsolicitedStart: 12-02-2024 End: 38-70-2756Fhylzegr Result EncounterRichard A Visci DO Work Phone: NOSV External Department UnsolicitedStart: 12-01-2024 Non-patient / Non-visit([place]) Elizabeth MCDERMOTT-[facility] Work Phone: Start: 11-30-2024 End: 27-21-2027lbyvglkgqnZfpqtlwp Rohrbacher ORACLE OBIEE DEVELOPER Work Phone: [facility] Work Phone: Start: 11-30-2024 End: 00-36-3820Ushbgjcj ReferredChris Chapman DO-[facility] Start: 17-49-3674Efh-patient / Non-visitChris Chapman DO-[facility] Work Phone: Start: 11-20-2024 End: 87-61-7591Wfiuwz flowsheetCorey Juan DO Work Phone: [facility] [place] [facility]BGYNStart: 11-20-2024 End: 08-83-9688Ypsbfa flowsheetCorey Juan DO Work Phone: [facility]YNStart: 11-20-2024 End: 16-00-0163Zlszktnkv Result EncounterCorey Juan DO Work Phone: noms External Department UnsolicitedStart: 11-20-2024 End: 97-05-5412Mxojtvzw Result EncounterCorey Juan DO Work Phone: noms External Department UnsolicitedStart: 11-20-2024 Non-patient / Non-visitCorey Juan-[facility] Work Phone: Start: 11-20-2024 End: 59-26-7606Rpywbia encounter procedureCorey Juan DO Work Phone: noms HealthcareStart: 11-20-2024 End: 57-56-7848Hhvsnjtn preventive med est patient 18-39 yrsCorey Juan DO Work Phone: [facility] [place] OBGYNComment on above:Well woman exam with routine gynecological exam; Exposure to STD; Second trimester ([facility]); 18 weeks gestation of ([facility]); Need for maternal serum alpha-protein (MSAFP) screening ([facility]); Screening, , for anatomic survey ([facility]); Thyroid diseaseStart: 11-20-2024 End: 30-68-2419wtlmgkeielLSDHE FAZIONot AvailableStart: 37-96-8222Lyl-patient / Non-visitArtemiofito Jayla Chapman DO-[facility] Work Phone: Start: 10-26-2024 End: 85-85-7874Mzjtds OnlyNot In System Ref ProvMaternal- Medicine at [facility] Hospitaltart: 10-22-2024 End: 92-51-5206Zjiisp outpatient visit 15 minutesCorey Juan DO Work Phone: noms BCP OBComment on above:13 weeks gestation of ([facility]); Second trimester ([facility]); Thyroid disease ; H/O gastric sleeve; H/O iron deficiency anemia; resulting from in vitro fertilization in first trimester ([facility]) Start: 10-22-2024 End: 93-69-4921iokgemxmukROIDA FAZIONot AvailableStart: 10-18-2024 End: 21-57-4430Uxiqstjzq department patient visitAmanda Ford ORACLE OBIEE DEVELOPER Work Phone: [phone]-Zwoewrzjm Room Work Phone: Start: 10-10-2024 End: 51-83-7578Kcsfizicw Result EncounterCorey Juan DO Work Phone: noms External Department UnsolicitedStart: 10-10-2024 End: 16-02-5828Heakkkmqw Result EncounterCorey Juan DO Work Phone: noms External Department UnsolicitedStart: 09-26-2024 End: 15-81-6866bhwlsffziaDszpflzi MerylrbacherFacility:[facility] HospitalStart: 09-20-2024 End: 63-10-5856Sxgiwx outpatient visit 5 minutesNoms Bcp Ob Juan NurseNOMS BCP OBComment on above:GA: 8l9wAbogv: 09-20-2024 End: 78-72-6561yzyivntbvsRECJT SABBAGHNot AvailableStart: 09-03-2024 End: 46-83-1673Hcimsoe evaluation of patient and reportUs Tech [facility] Rej Work Phone: Reproductive Endocrinology InfertilityComment on above:Early stage of ([facility])Start: 09-03-2024 End: 03-27-9219lxmodmetamVPWVZPV G MICKEYFacility:[facility] Start: 08-28-2024 End: 06-00-0485Bhdpcdz evaluation of patient and reportUs Tech [facility] Beac Work Phone: Reproductive Endocrinology InfertilityComment on above: resulting from assisted reproductive technology in first trimester ([facility])Start: 08-28-2024 End: 49-11-6348mrklkbjmsaORITKUV G MICKEYFacility:[facility] Start: 08-24-2024 End: 29-95-1864Ohxvmodkz encounterLiliana G David ORACLE OBIEE DEVELOPER.SUPERVISOR POLE [employer]ARD Work Phone: Reproductive Endocrinology InfertilityComment on above:Patient QuestionStart: 08-23-2024 End: 98-76-1329Ktqwgylue encounterLiliana G David ORACLE OBIEE DEVELOPER.SUPERVISOR POLE YARD Work Phone: Reproductive Endocrinology InfertilityComment on above:PainStart: 08-22-2024 End: 26-44-3796Zzwcquforrest Sinclair MD Work Phone: noms ENDOCRINOLOGYStart: 08-22-2024 End: 88-47-5714Gvbmggforrest Sinclair MD Work Phone: noms ENDOCRINOLOGYStart: 08-22-2024 End: 36-60-7404Frbctf outpatient visit 25 minutesDarleen Sinclair MD Work Phone: N[facility] SH ENDOCRINOLOGYComment on above:Abnormal thyroid function test (Primary Dx); H/O gastric bypass; 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CMS/HCC); Vitamin D deficiencyStart: 08-22-2024 End: 24-56-0145zthctmupkyYQRCASp Andrade AvailableStart: 08-20-2024 End: 70-19-3093Tpgvykdvrqdr consultation with [place] Hernandez APRN.SUPERVISOR POLE YARD Work Phone: Reproductive Endocrinology InfertilityStart: 08-20-2024 End: 35-63-8980qgcaofdsofAckswaj G Mickey ORACLE OBIEE DEVELOPER.SUPERVISOR POLE YARD Work Phone: Reproductive Endocrinology InfertilityComment on above: 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) (Primary Dx)Start: 08-18-2024 End: 91-28-8103bmhiekqbfaArqyexx G Mickey ORACLE OBIEE DEVELOPER.SUPERVISOR POLE YARD Work Phone: Reproductive Endocrinology InfertilityComment on above:UltrasoundStart: 08-17-2024 End: 75-76-9641hfuhuzosxuXnyfmehf RohrbacherFacility:[facility] HospitalStart: 08-16-2024 End: 96-90-5438Zatvremcf encounterLilimino Hernandez ORACLE OBIEE DEVELOPER.SUPERVISOR POLE YARD Work Phone: Reproductive Endocrinology InfertilityComment on above:positive for pregnancyStart: 08-15-2024 End: 07-30-5169Kzxvrfbfx encounterLilimino Hernandez ORACLE OBIEE DEVELOPER.SUPERVISOR POLE YARD Work Phone: Reproductive Endocrinology InfertilityComment on above:Patient QuestionStart: 08-15-2024 End: 41-38-8082enffruphsiLeebwqj G MickeyFacility:[facility] HospitalStart: 08-13-2024 End: 25-86-8017rrxyftpkjlQucmodk G MickeyFacility:[facility] HospitalStart: 07-31-2024 End: 72-42-7980emjhmokxgjGDMTWcqiztnr:[facility] HospitalStart: 07-31-2024 End: 92-11-7695Czwdxol encounter procedureAndrology Automatic Grinder Operator Work Phone: [facility] Andrology LaboratoryComment on above: Procreative management (Primary Dx)Start: 07-30-2024 End: 25-65-0181Qtmqsnujp encounterMelodie Hernandez ORACLE OBIEE DEVELOPER.SUPERVISOR POLE YARD Work Phone: Reproductive Endocrinology InfertilityComment on above:Patient QuestionStart: 07-25-2024 End: 26-01-1878techjziegoIFWXOxngrjmy:[facility] HospitalStart: 07-07-2024 End: 79-00-7639iiwiqwmyaeUSXHRRIU TANTIBHEDHYANGKULFacility:[facility] Hospitaltart: 07-07-2024 End: 71-33-3561Lbrxicl encounter procedureAndrology Automatic Grinder Operator Work Phone: [facility] Andrology LaboratoryComment on above: Procreative management (Primary Dx)Encounter for artificial insemination (Primary Dx)Start: 07-06-2024 End: 32-74-6013Ugnqnhhku encounterMelodie Hernandez ORACLE OBIEE DEVELOPER.SUPERVISOR POLE YARD Work Phone: Reproductive Endocrinology InfertilityComment on above:Patient calling back/re iui 07/07 unsureStart: 07-05-2024 End: 36-44-3876Ofmztfhbx encounterIgnacio Guy MD Work Phone: reproductive Endocrinology InfertilityComment on above:re iui this wknd/has cervical polyp questionStart: 07-04-2024 End: 18-65-9621Forjbyajo encounterMelodie Hernandez ORACLE OBIEE DEVELOPER.SUPERVISOR POLE YARD Work Phone: Reproductive Endocrinology InfertilityComment on above:Treatment PlanningStart: 07-04-2024 End: 73-68-2958ehfjypyxopVlakvvg G Mickey ORACLE OBIEE DEVELOPER.SUPERVISOR POLE YARD Work Phone: Reproductive Endocrinology InfertilityComment on above:OvulatingStart: 07-04-2024 End: 00-51-7139Yffgotw encounter procedureUs Tech [facility] Beac Work Phone: Reproductive Endocrinology InfertilityStart: 07-02-2024 End: 65-40-6448qqglddwjoyNIPQWKH MICKEYFacility:[facility] HospitalStart: 06-29-2024 End: 15-59-4406humsiuywuqHHQRJUN MICKEYFacility:[facility] HospitalStart: 06-23-2024 End: 77-52-5640hbrftrhlixWaxzhsx G David ORACLE OBIEE DEVELOPER.SUPERVISOR POLE YARD Work Phone: Reproductive Endocrinology InfertilityComment on above:Negative test and possible hematomaStart: 06-09-2024 End: 23-12-2434wcjytnnpqlDDFQUM ATTARANFacility:[facility] HospitalStart: 06-09-2024 End: 84-66-8940Ozywedu encounter procedureAndrology Automatic Grinder Operator Work Phone: [facility] Andrology LaboratoryComment on above: Procreative management (Primary Dx)Female infertility (Primary Dx)Start: 06-05-2024 End: 32-22-7849fugukcmjonQwgkehd G David ORACLE OBIEE DEVELOPER.SUPERVISOR POLE YARD Work Phone: Reproductive Endocrinology InfertilityStart: 06-05-2024 End: 88-08-1915Kghktez encounter procedureLiliana G David ORACLE OBIEE DEVELOPER.SUPERVISOR POLE YARD Work Phone: Reproductive Endocrinology InfertilityComment on above:IUI appointmentStart: 05-22-2024 End: 99-33-1407unvxbnlrtxDgunkou G David ORACLE OBIEE DEVELOPER.SUPERVISOR POLE YARD Work Phone: Reproductive Endocrinology InfertilityComment on above:Progesterone resultsStart: 05-21-2024 End: 09-31-7231imjelqzuwvTgaicwe G MickeyFacility:[facility]Start: 05-18-2024 End: 94-71-4356rmcibwuwixCJCQUOS MICKEYFacility:[facility] HospitalStart: 05-09-2024 End: 38-56-2728upqdttkaweUdvafya G David ORACLE OBIEE DEVELOPER.SUPERVISOR POLE YARD Work Phone: Reproductive Endocrinology InfertilityComment on above:Reproductive mgmt, 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)Start: 05-09-2024 End: 91-21-5729Pyrgozrjuhsd consultation with [place] Hernandez APRN.CNP Work Phone: Reproductive Endocrinology InfertilityStart: 05-06-2024 End: 18-97-7532keyuvchweaXjgyupyBridget Hernandez APRN.SUPERVISOR POLE YARD Work Phone: Reproductive Endocrinology InfertilityComment on above:Consent formStart: 05-02-2024 End: 67-76-2563Lsfcaarbbtls consultation with Rufino Enriquez PhD Work Phone: [facility] HospitalComment on above:Bipolar 1 disorder (Multi) (Primary Dx); Infertility counselingStart: 05-02-2024 End: 65-09-7512kjgogfrovwNBNVDP [facility] AmbulatoryStart: 04-26-2024 End: 15-70-6258qommptldsqQgqbwmcctUniversity Hospitals [facility] Work Phone: Start: 04-26-2024 End: 41-93-2304Rqevazl encounter procedureC[facility] Phys[facility] Work Phone: Start: 04-24-2024 End: 62-48-9118rfucjjfcxuKVFVCXM MICKEYFacility:[facility] Hospitaltart: 04-23-2024 End: 22-43-5577wmkvbwtcyrPwthqlfieUniversity Hospitals [facility] Work Phone: Start: 04-23-2024 End: 03-40-9849Milhkei encounter procedureC[facility] Health [facility] Hospital Physician [facility] Work Phone: Start: 04-02-2024 End: 57-55-2023mnbbfkuiosLlmsataBridget Hernandez APRN.SUPERVISOR POLE YARD Work Phone: Reproductive Endocrinology InfertilityComment on above:Genetic testingStart: 03-09-2024 End: 68-62-8788wmekrmwczkVkiiehsSue Hernandez APRN.SUPERVISOR POLE YARD Work Phone: Reproductive Endocrinology InfertilityComment on above:Reproductive mgmt, 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); Special screening examination for infectious diseases; Encounter for other genetic testing of female for procreative managementStart: 03-09-2024 End: 23-34-9750Xzqnajthalca consultation with [place] Hernandez APRN.CNP Work Phone: Reproductive Endocrinology InfertilityStart: 02-29-2024 End: 97-01-3117vssaytkgugRCKRUAB MICKEYFacility:[facility] Hospitaltart: 02-28-2024 End: 70-70-3283adrsygpknuIADLLS ATTARANFacility:[facility] Hospitaltart: 02-28-2024 End: 87-13-9887Krabige encounter Ana Rosa Guy MD Work Phone: reproductive Endocrinology InfertilityComment on above: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)Start: 02-27-2024 End: 53-55-4502iorpykgxrjVvmbsyho Rohrbacher APRN Work Phone: [facility] Work Phone: Start: 02-27-2024 End: 52-66-1357Uzqbidu encounter procedureAmanda Ford APRN Work Phone: [facility] Work Phone: Start: 33-89-9744Gqw-patient / Non-visitCone Health Wesley Long Hospital Physician Group-[facility] Work Phone: Start: 02-20-2024 End: 41-97-5936Xrswmdd encounter procedureCorey Juan DO Work Phone: noMS HealthcareStart: 02-20-2024 End: 45-45-8253Yrlxniea preventive med est patient 18-39 yrsCorey Juan DO Work Phone: noms BCP OBComment on above:Well woman exam with routine gynecological examStart: 02-20-2024 End: 80-21-2260Vcxoaq flowsheetCorey Juan DO Work Phone: noms BCP OBStart: 02-20-2024 End: 32-71-6308Cmhnwr flowsheetCorey Juan DO Work Phone: [facility] BCP OBStart: 02-20-2024 End: 68-10-6577Rmxrbffem Result EncounterCorey Juan DO Work Phone: N[facility] External Department UnsolicitedStart: 01-17-2024 End: 65-16-9098tbuilvjcilCRZQ Jennifer Rohrbacher Work Phone: [facility] Work Phone: Start: 01-17-2024 End: 75-26-8065Acxnijk encounter procedureMELY Ford Work Phone: [facility] Physician Group-[facility] Work Phone: Start: 41-67-4648Pue-patient / Non-visitAPRTanja Ford Work Phone: [facility] Work Phone: Start: 12-20-2023 End: 63-75-1836cvvmwzzxuzUSBM Jennifer Rohrbacher Work Phone: [facility] Work Phone: Start: 12-20-2023 End: 57-85-0259Khmqich encounter procedureMELY Ford Work Phone: [facility] Work Phone: Start: 97-61-9845akhxrlvlqgIwnqz Bailey [facility]: 54-04-1875Klt-patient / Non-visitAPRTanja Ford Work Phone: [facility] Work Phone: Start: 12-07-2023 End: 92-89-2876Uwcutqrmw to same day surgery centerMELY Ford Work Phone: [facility]: 12-07-2023 End: 16-24-2038ldtwihctbqESHIShima Ford Work Phone: [facility] Work Phone: Start: 12-01-2023 End: 16-51-5468hskqboeitnFYQP Jennifer Rohrbacher Work Phone: [facility] Work Phone: Start: 12-01-2023 End: 57-34-6475Huqxqyz encounter procedureMELY Ford Work Phone: [facility] Work Phone: Start: 11-28-2023 End: 37-33-0396nbvjsjigrxGPSYShima Ford Work Phone: [facility] Work Phone: Start: 11-28-2023 End: 98-66-8909Qsgrgsk encounter procedureMELY Ford Work Phone: [facility]-Pre-Surgical Testing Work Phone: Start: 11-02-2023 End: 86-89-4889Iqdfdxnzx department patient visitAmanda Ford [facility]: 11-01-2023 End: 32-34-2237mprpsgcjkcZUOIShima Ford Work Phone: [facility] Work Phone: Start: 11-01-2023 End: 89-34-1848Lewxscn encounter procedureMELY Ford Work Phone: [facility] Work Phone: Start: 10-26-2023 End: 13-01-0265cgmhisxjdpWRSG Jennifer Rohrbachenikkie Work Phone: [facility] Work Phone: Start: 10-26-2023 End: 50-16-2259Wmlqcqo encounter procedureAPRTanja Patel Rosarioacher Work Phone: [facility]G Work Phone: Start: 10-13-2023 End: 81-59-5919dzbbfnzffrLrawkwdvv [facility] Work Phone: Start: 10-13-2023 End: 72-54-8835Dednchp encounter procedureChristoph Physician Group-[facility] Work Phone: Start: 34-60-2779Xtu-patient / Non-visitChad Physician Group-[place] [facility] [employer] [facility] [employer] Work Phone: Start: 06-08-2023 End: 55-93-6470rollqfrqmbXomlwbiobSelect Medical [facility] Work Phone: Start: 06-08-2023 End: 18-70-5118Htnkqct encounter procedureChad Physician Group-[facility] Work Phone: Start: 05-17-2023 End: 52-72-7998qpfsqvpodqCgwwcczr Merylrbacher Other [employer] Other Start: 96-23-4453Wasgkk outpatient visit 15 minutes Romeo [facility] OrthopedicsStart: 78-43-8967Blulavgip encounterJennifer RohrbacherFPG [facility] ClinicStart: 05-17-2023 End: 20-89-2668Ucutgbn encounter procedureChad Physician Group-Start: 04-28-2023 End: 49-49-6995gjipqvmtxoEwfrtqai Rohrbacher Other [employer] Other Start: 80-27-4703Jqqrbnpgu encounterJennifer RohrbacherFPG [facility] ClinicStart: 04-22-2023 End: 99-37-7547hdkfleiwmbXkrccmoz Rohrbacher Other noKidizen Other Start: 21-36-1044Udmdkvxoj encounterJennifer RohrbacherFPG [facility]Start: 04-19-2023 End: 58-30-3789zopdyqggjpHgfxqbvo Rohrbacher Other noKidizen Other Start: 33-60-3404Abrncctws encounterJennifer RohrbacherFPG [facility] RoadStart: 04-14-2023 End: 66-52-2580beanjltqxwIdjdfjhf Rohrbacher Other noKidizen Other Start: 70-74-7373Ndryztmzb encounterJeaicha RohrbacherFPG [facility] ClinicStart: 03-17-2023 End: 63-88-9681xeuiewvmlhGospj Bailey Other noKidizen Other Start: 30-76-3350Kxoyriqzf encounterRomeo Bazzi OrthopedicsStart: 02-07-2023 End: 50-86-2167lomkwghxptQwehozcx Rohrbacher Other noKidizen Other Start: 64-74-3722Gluzev outpatient visit 15 minutes Petr Viv[facility] HealthuskyStart: 54-80-9090Pmcvcswgx encounter Amanda ShethrbacherFPG [facility] ClinicStart: 01-27-2023 End: 32-04-9350actclogcumDvhkxutz Rohrbacher Other noKidizen Other Start: 29-65-6295Szrltgyrg encounterJennifer RohrbacherFPG [facility] [place]Start: 01-19-2023 End: 18-39-5485upsucdzkboBonawbfr Rohrbacher Other noKidizen Other Start: 67-07-4030Uszfnvfog encounterJennifer RohrbacherFPG [facility] ClinicStart: 01-13-2023 End: 59-09-5695hameqhxrnqVuwyvmby Rohrbacher Other [employer]Kidizen Other Start: 65-29-9891Fraspzfgj encounterJennifer RohrbacherFPG [facility] ClinicStart: 01-10-2023 End: 39-61-7622fyukxwonwwOwfauomf Rohrbacher Other [employer] Other Start: 92-28-4876Ucogsfify encounterJennifer RohrbacherFPG [facility] ClinicStart: 01-06-2023 End: 30-40-3019ilstkcvsrgMtnngxea Rohrbacher Other noKidizen Other Start: 12-35-0264Cgewflvrm encounterJennifer RohrbacherFPG [facility] ClinicStart: 12-27-2022 End: 94-03-2672frxuotllxcMtcpwek Alireza Other noKidizen Other Start: 81-44-4320Uhuvxs outpatient visit 15 minutes Petr Hatch [facility] [place]kyStart: 11-10-2022 End: 53-56-0231lxqvxvojyvJsqkfmyw Rohrbacher Other noKidizen Other Start: 96-83-2438Feeeugntp encounterJennifer RohrbacherFPG [facility] [place]kyStart: 10-21-2022 End: 60-85-3067aztailltvsOqdxuhem Rohrbacher Other [employer] Other Start: 65-64-2684Cjqtsgftr encounterJennifer John Family [facility] ChildrenStart: 10-11-2022 End: 33-29-4924ildfwjktekUgqqbvw Widmer Other noKidizen Other Start: 17-68-4973Aurorz consultation new/estab patient 40 minMatthew BimerFPG [facility] [place]kyStart: 09-30-2022 End: 47-16-9896bwauiocifnRlndqzzr Rohrbacher Other [employer] Other Start: 05-82-5696Kyvnzq outpatient visit 15 minutes Amanda RosarioangelDanika Family [facility] ChildrenStart: 08-25-2022 End: 76-81-3840ksuxqlktwvQzmhhieu Rohrbacher Other [employer] Other Start: 76-02-3765Szqghl outpatient visit 15 minutes Amanda ShethsarahangelDanika Family [facility] CentertonStart: 08-20-2022 End: 87-23-4123pjrpaphnchSphkvvbi Rohrbacher Other [employer] Other Start: 95-31-6208Pszldl outpatient visit 15 minutes Amanda RosarioangelDanika Family [facility] CentertonStart: 07-19-2022 End: 74-78-4964znivdohkujDosqyzch Rohrbacher Other [employer] Other Start: 89-17-2633Ijjplgyjx encounterJennifer MeyrlrbacherF Family [facility] CentertonStart: 07-08-2022 End: 85-50-2367hofnzwvullKmsoqpbi Rohrbacher Other [employer] Other Start: 84-14-3251Xblcxevfe encounterAmanda LopezSummit Oaks HospitalStart: 06-23-2022 End: 28-09-4638jeshuulnhcZKBB Jennifer Rohrbacher Work Phone: [facility] Work Phone: Start: 06-23-2022 End: 07-55-4891Qmustrw encounter procedureAPRTanja Ford Work Phone: [facility]-Lab [place] Work Phone: Start: 06-17-2022 End: 22-15-4747rpixaflpxgPehaflnr Rohrbacher Other [place] [employer] Other Start: 72-18-8931Wzgaeyqgd encounterAmanda FordNopemiscot memorial health systems PGA TOUR Superstorert: 06-16-2022 End: 12-07-9916ymzusgolevMMGX Jennifer Rohrbacher Work Phone: [facility] Work Phone: Start: 06-16-2022 End: 66-38-0935Nkpskre encounter procedureAPRTanja Amandahina Ford Work Phone: [facility]-Lab [place] Work Phone: Start: 06-10-2022 End: 61-84-1214Ivuzuemfqg and management of inpatientMD Mariam Appiah Work Phone: [facility]-4 [place] [facility] Work Phone: Start: 46-88-5294gpuafbsyyxl encounterMD Mariam Appiah Work Phone: [facility] Work Phone: Start: 06-09-2022 End: 30-00-0298qqtxdjjdllEC Mariam Appiah Work Phone: [facility] Work Phone: Start: 06-09-2022 End: 52-16-6672Onjtgfz encounter procedureMD Mariam Appiah Work Phone: [facility]-Lab [place] Work Phone: Start: 04-26-2022 End: 32-17-8227kvbbsreqclQoeqohiz Rohrbacher Other [employer] Other Start: 71-44-8060Nzobnzubv encounterArtemionnifer RosarioachenikkieGSOUND PGA TOUR Superstorert: 04-23-2022 End: 58-21-6324mfvrnppdsxUfkfqmjf Rohrbacher Other [employer] Other Start: 14-81-9672Cgeffwpma encounterJennifer MerylrbacheUniversity of Missouri Children's Hospitalcloudswavert: 04-21-2022 End: 28-18-7115Mpdoiauu ReferredMD Mariam Appiah Work Phone: [facility]-Lab [place] Work Phone: Start: 04-21-2022 End: 03-80-7317jgxhrnitehQA Mariam Appiah Work Phone: [facility] Work Phone: Start: 37-15-2928Hkpcox outpatient visit 15 minutes Amanda LopezSummit Oaks HospitalStart: 04-20-2022 End: 95-63-0578vlbczrfoauVkzqhdvc Rohrbacher Other [employer] Other Start: 63-08-3432Rfbfxkrlm encounterAmanda ShethrbacherFSummit Oaks HospitalStart: 04-13-2022 End: 19-52-9913qpxonoxqtzDfqdourd Rohrbacher Other [employer] Other Start: 60-82-0649Whgihskeo encounterJennifer MerylrbacherNopemiscot memorial health systems PGA TOUR Superstorert: 04-10-2022 End: 25-19-0624Dtrsjhcvm department patient visitMD Mariam Appiah Work Phone: [facility]-Emergency Room Work Phone: Start: 04-08-2022 End: 79-12-5881Vcfsauioe department patient visitMD Mariam Appiah Work Phone: [facility]-Emergency Room Work Phone: Start: 03-30-2022 End: 48-75-9827qjxqxqdcbqVzdhyffz Rohrbacher Other [employer] Other Start: 08-42-2722Fqmmbpukk encounterJennifer MerylrbacherFElastar Community Hospital ClintonStart: 03-23-2022 End: 89-22-4344Scrdrro encounter procedureMD Mariam Appiah Work Phone: [facility] ClintonStart: 03-23-2022 End: 45-11-4649cthfwnuilnCrpcrxff Rohrbacher Other [employer] Other Start: 14-18-0511Yzojtb outpatient visit 15 minutes Amanda Lopez [facility] ClintonStart: 03-17-2022 End: 49-86-2267tiflzfinfeSarmbbjs Rohrbacher Other [employer] Other Start: 72-61-2450Ogxkageyc encounterJennifer MerylrbacherFPG [facility] CentertonStart: 02-08-2022 End: 28-61-4646pyuqdptajbItrhsqok Rohrbacher Other [employer] Other Start: 78-07-4279Vdsvcs outpatient visit 25 minutes Amanda LopezSummit Oaks HospitalStart: 09-01-2021 End: 80-00-4341Iiztyzd encounter Afshan Thompson [facility] Start: 08-25-2021 End: 17-49-3484Vdrnjjo encounter Afshan Thompson [facility] Start: 08-06-2021 End: 83-42-0033Vcknkoc encounter Afshan Thompson [facility] Start: 07-24-2021 End: 41-81-5836Tvblvir encounter Afshan Thompson [facility] Start: 07-23-2021 End: 40-35-1123anpfcetwfrYxpnjdzo Rohrbacher Other [employer] Other Start: 09-72-5494Ihfjiqouh encounterAmanda FordManasquan Bplats CoStart: 07-16-2021 End: 72-84-3539dxhwkoucfvTnjhldrj Merylrbacher Other [employer] Other Start: 37-06-9799Fdxcmz outpatient new 30 minutes Amanda LopezSummit Oaks HospitalStart: 03-30-2021 End: 86-09-2528Lzokfqdyg department patient visitMARIAM APPIAHHighland District Hospitaltart: 05-06-2020 End: 98-93-9708bomrvttxbsIPGQAPI R [facility]NSFlower [facility] Start: 05-06-2020 End: 43-98-5476Dmvwexqetf hospital visit by Magui Olivera Work Phone: stvz 2C Ortho/Med SurgComment on above:Post-op pain (Primary Dx)Start: 05-02-2020 End: 70-46-9231Dmnnprb encounter procedureLU Colt [facility] HospitalStart: 05-02-2020 End: 52-33-6489Nwxwiqvrur hospital visit by physicianStcdoroteo Covid Screening ScheduleSTCZ Covid ScreeningComment on above:Pre-op testing (Primary Dx)Start: 04-22-2020 End: 00-85-3791ncikiikczaDWWGUSKCoshocton Regional Medical Center Start: 04-22-2020 End: 13-16-0201qrkopkfwpmWEOYIYBCoshocton Regional Medical Center Start: 04-22-2020 End: 26-09-9781Iosnqsvtrg hospital visit by physicianSfatoumata C-Arm [address] [place] [address] RadiologyComment on above:ArrivedStart: 04-22-2020 End: 66-96-5181Ohbzgryeaz hospital visit by physicianSraisa Pat 2STVZ Pre-Admit Testing Procedures DateProcedureProcedure DetailPerforming ClinicianStart: 12-38-7174FQ OB BPP W NON-STRESSCorey Juan DO Work Phone: Start: 88-19-4916ALJ THYROID STIM HORMONECorey Juan DO Work Phone: Start: 86-85-5052Flgao dip stick/tablet rgnt non-auto w/o micrscpCorey Juan DO Work Phone: Start: 21-05-6092Nwnzq dip stick/tablet rgnt non-auto w/o micrscpAmy Kwaku OGDEN Work Phone: Start: 75-45-6032Prvuq dip stick/tablet rgnt non-auto w/o micrscpMima Duenas NP Work Phone: Start: 08-94-0325GAO THYROID STIM HORMONECorey Juan DO Work Phone: Start: 77-69-6162OTN CBC WITH AUTO DIFFAmy Kwaku OGDEN Work Phone: Start: 63-04-4885YONEBGK 1 HOURAmy Kwaku OGDEN Work Phone: Start: 40-71-5850Njcae dip stick/tablet rgnt non-auto w/o micrscpAmy Kwaku OGDEN Work Phone: Start: 00-91-3435AMI UA (CLEAN/CATCH) FLEXO OPERATOR/MICRO IF IND.Les Juan DO Work Phone: Start: 99-68-5165LIR URINE MICROSCOPIC ONLYCorey Juan DO Work Phone: Start: 46-54-2045Xiqwu dip stick/tablet rgnt auto w/o microscopyRichard A Visci DO Work Phone: start: 69-34-6032HTXKYVNLW VAGINITIS (HTRX)Les Juan DO Work Phone: Start: 29-01-7037VOU THYROID STIM HORMONECorey Juan DO Work Phone: Start: 86-03-0918Newln dip stick/tablet rgnt non-auto w/o micrscpCorey Juan DO Work Phone: Start: 09-42-7568Tobnw dip stick/tablet rgnt non-auto w/o micrscpCorey Juan DO Work Phone: Start: 38-02-8935TPZOKNOE LAB TESTNot In System Ref ProvStart: 59-52-3003Nnilibdh identification testAmanda Ford [employer]LE [employer]BIEE DEVELOPER Work Phone: Start: 74-87-8144Wvizisbtwzjij of growth of fungi Amanda Ford [employer] DEVELOPER Work Phone: Start: 65-25-2643Uotoveoctus vaginalis detection Amanda Ford [employer]EE DEVELOPER Work Phone: Start: 71-57-4204Khyhw cultureJennifer Logan [employer]BIEE DEVELOPER Work Phone: Start: 02-10-4845Mnnrppxmga ultrasound of gravid uterusArtemionnedmundo Ford [employer] OBIEE DEVELOPER Work Phone: Start: 83-82-2158BGHFRIXO LAB TESTNot In System Ref ProvStart: 52-70-3642LIB TESTCorey Juan DO Work Phone: Start: 49-16-9668Qzvacpij rubellaNot In System Ref ProvStart: 32-20-2618Ncbcsrha Zak Lindquist MD Work Phone: Start: 26-57-0068Aoglgzvuqb glycosylated q5pBhbhnwri Provider ExternalStart: 89-37-3192LDQ 1&2 AB/AG SCREEN (P24 AG)Not In System Ref ProvStart: 65-16-6445Zskm ia hepatitis b surface antigenNot In System Ref Prov Start: 00-75-2601TZCAFLSZ TOTAL(UNKNOWN SYPHILIS STATUS)Not In System Ref Prov Start: 27-26-2204WRXS AND SCREENNot In System Ref ProvStart: 09-21-2024 ULTRASOUND OFFICENot In System Ref ProvStart: 32-03-9735Thjyg dip stick/tablet rgnt non-auto w/o micrscpCorey Juan DO Work Phone: Start: 28-49-9804Na preg uterus after 1st trimest / gestationLiliana G David [employer]BIEE DEVELOPER.SUPERVISOR [employer]LE [employer]ARD Work Phone: Start: 56-40-0721Uu preg uterus after 1st trimest / gestationLiliana G David [employer] OBIEE DEVELOPER.SUPERVISOR POLE [employer]ARD Work Phone: Start: 67-80-0273Vp pelvic nonobstetric real-time image Nydia Guy MD Work Phone: start: 72-39-4342Cmdiqbyr screenLILIANA MICKEYComment on above:Order Comment: Specimen Type: BLOOD SPECIMEN Ordering Facility: [facility] Address: [address] [place], [place] [id number] By: #### TSPN #### [facility] [id number] [place] [address] [place] AMERICAStart: 52-15-3046TJY,APTIMA HPV,AGE GDLN Les Monsivaiso DO Work Phone: Start: 09-63-6043Ekoicxtvegx observation [Identifier] in Cervix by Rose Enriquez PhD Work Phone: Start: 55-90-6682IT Shoulder Scope RCR/Biceps Tendon (Right)[employer]BIEE DEVELOPER Amanda Logan Work Phone: Start: 36-34-1870Gvershxm tomography of abdomen and pelvis with contrastMD Mariam Appiah Work Phone: Start: 27-91-4375Wqxvrkonu for occult blood in fecesMD Mariam Appiah Work Phone: Start: 95-68-1527Cmvbx cultureMD Mariam Appiah Work Phone: Start: 04-06-2128Mceao cultureMD Mariam Appiah Work Phone: Start: 42-20-0628Pdydc X-ray of right shoulderMD Mariam Appiah Work Phone: Start: 52-22-7080Sqdpg metabolic panel calcium total Rei Montez Work Phone: Start: 14-48-9474Rfjuy count complete auto&auto difrntl wbcMichael A Montez Work Phone: Start: 71-96-1215Sywpc esophagusGregdirss R Olivera Work Phone: Start: 00-33-5522Ovevt metabolic panel calcium total Rashard R Olivera Work Phone: Start: 35-59-2756Uzuem count complete automatedGregdriss R Olivera Work Phone: Start: 12-08-8761Swsfk metabolic panel calcium total Rashard R Olivera Work Phone: Start: 19-87-1471Dherh count complete automatedRashard Olivera Work Phone: Start: 05-06-2020 End: 78-59-9510VKYIXUXETCI SLEEVE LAPAROSCOPIC ROBOTICRashard Olivera Work Phone: Start: 42-22-7656Vvyeo test visual color cmprsn methsGlisa Olivera Work Phone: Start: 45-27-9362Iiamw iv surg pathology gross&microscopic examRashard Olivera Work Phone: Start: 93-42-8020Bhchitnkff exam chest 2 viewsRashard Olivera Work Phone: Start: 98-41-3712Zyobk of nicotineRashard Olivera Work Phone: Start: 45-78-1376Zlxuc metabolic panel calcium total Rashard Olivera Work Phone: Start: 47-25-2738Qrdtp count complete Idania Olivera Work Phone: Start: 63-68-0492Uyejgolbcyz timeRashard Olivera Work Phone: Start: 79-88-7561Zbayzvedbeyzvb time partial plasma/whole bloodRashard Olivear Work Phone: Start: 95-00-8076Uub routine ecg w/least 12 lds i&r onlyRashard Olivera Work Phone: Start: 47-66-7016UNB REPORTHpf ScanningCholecystectomy Samir Thompson Comment on above:2016 Plan of Treatment DateCare ActivityDetailAuthorStart: 66-32-9049WZH Vaccine (1 - 1-dose 75+ series)RSV Vaccine (1 - 1-dose 75+ series)[facility] 2045 Zoster Vaccines (1 of 2)Zoster Vaccines (1 of 2)[facility] HealthStart: 63-30-5694VPwE,Tdap and Td Vaccines (2 - Td or Tdap)DTaP,Tdap and Td Vaccines (2 - Td or Tdap)[facility]Start: 12-25-2032 DTaP/Tdap/Td Vaccines (2 - Td or Tdap)DTaP/Tdap/Td Vaccines (2 - Td or Tdap) [facility] HealthStart: 46-43-4764Fbvel microalbumin profile DTaP,Tdap,Td Vaccine (2 - Td or Tdap)[facility]: 46-52-4428Yccylaklq for malignant neoplasm of cervixUnSouthview Medical Center: 91-89-7744Ftvrk BMI ScreeningAdult BMI ScreeningProAdena [facility]ike Medical Center SystemStart: 71-33-4980Gdzfsql ScreeningTobacco ScreeningProWexner Medical Centertart: 12-05-2025 End: 11-25-9641XF MFM with or without consultUS MFM with or without consult Imaging Routine Previous gastric bypass affecting , antepartum Hypothyroidism affecting in second trimester 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 ([facility]) Obesity affecting in second trimester, unspecified obesity type Encounter for supervision of resulting from assisted reproductive technology, antepartum Expected: 12/05/2025 (Approximate), Expires: 12/05/2025[facility] Work Phone: comment on above:Expected: 12/05/2025 (Approximate), Expires: 12/05/2025Start: 08-21-2025 End: 84-04-5267Eqnpktt encounter procedureNOJAMES B. HAGGIN MEMORIAL HOSPITALStart: 03-06-2025 End: 56-14-8006Wikpicu encounter iyiqpoknw91/19/2025 10:30 AM EST Routine GUDELIA HERNANDEZ [address] [place] [address] Jojo Ames PA [address] [place], [place] [id number] GUDELIA SHERMANGYNStart: 03-05-2025 End: 82-56-3366Bwntnhe encounter ptkmrxbzu03/18/2025 11:15 AM EST Appointment [facility] - Ultrasound [address] [place] [address] [phone] [facility] - UltrasoundStart: 02-20-2025 End: 37-67-0974Dsayoya encounter procedureNOMS BCP OBStart: 02-19-2025 End: 99-34-5041UY biophysical profile w non stress testUS biophysical profile w non stress test Imaging Routine TSH (thyroid-stimulating hormone deficiency) Expected: 02/19/2025 (Approximate), Expires: 08/19/2025[facility] Work Phone: comment on above:Expected: 02/19/2025 (Approximate), Expires: 08/19/2025Start: 02-19-2025 End: 05-67-3554Tejepzi encounter otutkfzjx95/04/2025 1:00 PM EST Routine NOMMarixa [place] [facility] [address] [place], [id number] Les Martinez DO [address] [place], [place] [id number] NOMS Ricco OBGYNStart: 02-07-2025 End: 32-58-9592TY MFM with or without consultUS MFM with or without consult Imaging Routine Hypothyroidism affecting in second trimester headache in second trimester Previous gastric bypass affecting , antepartum 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 ([facility]) Expected: 02/07/2025, Expires: 02/07/2026[facility] Work Phone: comment on above:Expected: 02/07/2025, Expires: 02/07/2026Start: 02-07-2025 End: 85-30-9966Ypgvmom encounter wskrpezke97/23/2025 9:45 AM EDT Appointment [facility] [place] [address] [place] [address] [phone] Medicine [place]Start: 02-06-2025 End: 48-45-9162Bdmlknf encounter procedureNOMS [place] OBGYNComment on above: ArrivedStart: 02-03-2025 End: 24-43-0535SA MFM with or without consultUS MFM with or without consult Imaging Routine Previous gastric bypass affecting , antepartum Hypothyroidism affecting in second trimester 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 ([facility]) Obesity affecting in second trimester, unspecified obesity type Expected: 02/03/2025 (Approximate), Expires: 01/04/2026[facility] Work Phone: comment on above:Expected: 02/03/2025 (Approximate), Expires: 01/04/2026Start: 01-30-2025 End: 32-72-1167Fmcdehoybxog / ancillary services chlmkicrin10/15/2025 2:30 PM EDT Ancillary Procedure [facility] [address] [place] [address] [place] [id number] NOMS Ricco OBGYNStart: 01-16-2025 End: 00-61-6885RP for pregnancyUS OB follow up transabdominal approach Imaging Routine TSH (thyroid-stimulating hormone deficiency) Expected: 01/16/2025, Expires: 05/19/2025NONC [employer] Work Phone: comment on above:Expected: 01/16/2025, Expires: 05/19/2025Start: 01-16-2025 End: 78-28-3304Xkijphx encounter procedureNOMS [place] OBGYNComment on above: ArrivedStart: 01-03-2025 End: 44-68-5515Akrkzkm encounter txqkietoy51/18/2025 2:15 PM EDT Appointment [facility] [place] [address] [place] [address] [phone] Medicine [place]Start: 12-19-2024 End: 06-24-5851MIQ panel - Blood by Automated countCBC Lab Routine Diabetes mellitus screening Expected: 12/19/2024 (Approximate), Expires: 12/19/2025[facility] Work Phone: comment on above:Expected: 12/19/2024 (Approximate), Expires: 12/19/2025Start: 12-19-2024 End: 88-25-9385Dzqjrvxdfvm of glucose 1 hour after glucose challenge for glucose tolerance testGlucose tolerance, 1 hour Lab Routine Diabetes mellitus screening Expected: 12/19/2024 (Approximate), Expires: 12/19/2025NONC HealthcareComment on above:Expected: 12/19/2024 (Approximate), Expires: 12/19/2025Start: 12-19-2024 End: 04-02-4751Micpvfg encounter procedureNOMS [place] OBGYNComment on above: ArrivedStart: 36-70-3659ULLLA-19 Vaccine ()COVID-19 Vaccine ()[facility] SystemStart: 48-19-8651Qogtbwrro vaccination [facility]tart: 12-05-2024 End: 29-27-0395Skyorfb encounter procedureMercer County Community Hospital US ImagingStart: 12-04-2024 End: 95-76-9896Lhyzrdfcsaec / ancillary services tpllyzjdmd06/19/2025 8:30 AM EDT Ancillary Procedure GUDELIA [place] [facility] [address] [place] [address] [place] [address] WDXB Ricco OBGYNStart: 53-61-8663Qhtpzslz admission [facility]ertart: 34-09-0327SvjvkizxdLouis Stokes Cleveland VA Medical Centertart: 12-92-7376Oopozfkw identified in Urine by CultureUrine Culture [facility] Centertart: 11-30-2024 End: 19-06-5522Fjwnj cultureLouis Stokes Cleveland VA Medical Centertart: 11-20-2024 End: 34-44-9364Zmzci fetoprotein, maternalAlpha fetoprotein, maternal Lab Routine Need for maternal serum alpha-protein (MSAFP) screening ([facility]) Expected: 11/20/2024 (Approximate), Expires: 12/21/2024NONC HealthcareComment on above:Expected: 11/20/2024 (Approximate), Expires: 12/21/2024Start: 11-20-2024 End: 07-37-6633FB for pregnancyUS OB 14+ weeks anatomy scan Imaging Routine Screening, , for anatomic survey ([facility]) Expected: 11/20/2024 (Approximate), Expires: 02/20/2025NOMS HealthcareComment on above:Expected: 11/20/2024 (Approximate), Expires: 02/20/2025Start: 11-20-2024 End: 76-12-7641Zlwezcy encounter procedureNOMS BCP OBComment on above:Arrived Start: 10-22-2024 End: 90-35-9173Qupsebv encounter erpzpgpeo01/07/2025 11:20 AM EDT Routine [facility] OB [address] [address] Les Martinez, DO [address] [place] [address] NOMS BCP OBStart: 92-68-1348Reshskyl identified in Urine by CultureUrine [facility] Start: 20-34-2062Uyfulau CultureGenital [facility] Start: 33-86-5385Xhjkh [facility]: 10-18-2024 [facility]: 09-20-2024 End: 51-04-4999TAA/RhABO/Rh Lab Routine Missed menses , unspecified gestational age Expected: 09/20/2024 (Approximate), Expires: 09/20/2025NONC HealthcareComment on above:Expected: 09/20/2024 (Approximate), Expires: 09/20/2025Start: 09-20-2024 End: 23-80-5075Iphiu type and Indirect antibody screen panel - BloodType and screen Lab Routine Missed menses , unspecified gestational age Expected: 09/20/2024 (Approximate), Expires: 09/20/2025[facility] Work Phone: comment on above:Expected: 09/20/2024 (Approximate), Expires: 09/20/2025Start: 09-20-2024 End: 10-06-9967Erfhv of abuse panel - Urine by Screen methodRapid drug screen, urine Lab Routine , unspecified gestational age Encounter for supervision of normal first in first trimester Expected: 09/20/2024 (Approximate), Expires: 09/20/2025NOMS HealthcareComment on above:Expected: 09/20/2024 (Approximate), Expires: 09/20/2025Start: 09-13-2024 End: 20-15-2298ounilfkflx29/29/2025 2:30 PM EDT Initial [facility] [address] [place] [address] KNYB BCP OBStart: 09-13-2024 End: 02-54-2675Nrxhsfnmcjhc / ancillary services jjzuzfwwpi49/29/2025 2:00 PM EDT Ancillary Procedure [facility] OB [address] [place] [address] QONN [facility] OBStart: 09-03-2024 End: 13-51-0503Qffsoqs evaluation of patient and reportReproductive Endocrinology InfertilityComment on above: scanob scan, non ivfStart: 08-22-2024 End: 644823-itrhacnkfiksqh D3 [Mass/volume] in Serum or PlasmaVitamin D 25 hydroxy Lab Routine H/O gastric bypass Vitamin D deficiency Expected: 08/22/2024 (Approximate), Expires: 08/22/2025MS HealthcareComment on above: Expected: 08/22/2024 (Approximate), Expires: 08/22/2025Start: 08-22-2024 End: 72-45-1645Xwbiqdpva (Vitamin B12) [Mass/volume] in Serum or PlasmaVitamin B12 Lab Routine H/O gastric bypass Expected: 08/22/2024 (Approximate), Expires: 08/22/2025NOMS HealthcareComment on above:Expected: 08/22/2024 (Approximate), Expires: 08/22/2025Start: 08-22-2024 End: 16-05-6022Fstuvxnr (aka Vitamin B1)Thiamine (aka Vitamin B1) Lab Routine H/O gastric bypass Expected: 08/22/2024 (Approximate), Expires: 08/22/2025NOMS HealthcareComment on above:Expected: 08/22/2024 (Approximate), Expires: 08/22/2025Start: 08-22-2024 End: 34-71-6323Eqzvwdfrcml [Units/volume] in Serum or PlasmaTSH Lab Routine Abnormal thyroid function test Expected: 08/22/2024 (Approximate), Expires: 08/22/2025[facility] HealthcareComment on above:Expected: 08/22/2024 (Approximate), Expires: 08/22/2025Start: 08-22-2024 End: 98-50-9827Bwqoqwbrm (T4) free [Mass/volume] in Serum or PlasmaT4, free Lab Routine Abnormal thyroid function test Expected: 08/22/2024 (Approximate), Expires: 08/22/2025[facility] HealthcareComment on above:Expected: 08/22/2024 (Approximate), Expires: 08/22/2025Start: 08-22-2024 End: 36-44-7917Wlfydoztzfsgwcxs (T3) Free [Mass/volume] in Serum or PlasmaT3, free Lab Routine Abnormal thyroid function test Expected: 08/22/2024 (Approximate), Expires: 08/22/2025[facility] Work Phone: Comment on above:Expected: 08/22/2024 (Approximate), Expires: 08/22/2025Start: 08-22-2024 End: 47-21-5538Rpvltws encounter /07/2025 10:00 AM EDT Office Visit [facility] [address] [place] [id number] Darleen Sinclair MD [address] [place] [address] ArrivedPROVIDENCE HEALTH ENDOCRINOLOGYComment on above:Arrived Start: 08-20-2024 End: 68-13-6184AFATUQVNS ULTRASOUND WHIOBSTETRIC ULTRASOUND WHI Anc Imaging Routine 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) Expected: 08/20/2024, Expires: 08/20/2025[facility] Work Phone: Comment on above:Expected: 08/20/2024, Expires: 08/20/2025Start: 08-20-2024 End: 79-76-7138xcdqbeuhtx22/05/2025 8:30 AM EDT [facility] Reproductive Endocrinology Infertility [address] [place] [address] Melodie Hernandez APRN.SUPERVISOR POLE YARD [address] [place] [address] preg apptReproductive Endocrinology Infertility Comment on above:preg apptStart: 07-07-2024 End: 01-21-2087Xoaytvd [facility] procedureCook [facility] Comment on above:donor thawiui dStart: 05-09-2024 End: 73-52-6862ksgcskntyr38/22/2025 8:00 AM EST [facility] Reproductive Endocrinology Infertility [address] [place] [address] Melodie Hernandez APRN.SUPERVISOR POLE YARD [address], [place] [address] donor sperm teachReproductive Endocrinology InfertilityComment on above:donor sperm teachStart: 88-28-1050Qbyxzam referral [facility] Work Phone: Start: 03-11-2024 End: 192411-lvqhmjpzcqsmlt D3 [Mass/volume] in Serum or PlasmaVITAMIN D 25 HYDROXY Lab Routine Reproductive mgmt, 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 Expected: 03/11/2024, Expires: 06/10/2024[facility] ClinicComment on above:Expected: 03/11/2024, Expires: 06/10/2024Start: 03-11-2024 End: 93-31-1175OBYQBZC SCREEN, EXPANDEDCARRIER SCREEN, EXPANDED Lab Routine Encounter for other genetic testing of female for procreative management Expected: 03/11/2024, Expires: 06/10/2024[facility] ClinicComment on above: Expected: 03/11/2024, Expires: 06/10/2024Start: 03-11-2024 End: 36-71-4898Uyfkvrxsz trachomatis+Neisseria gonorrhoeae DNA [Presence] in Unspecified specimen by AC with probe detectionGONORRHEA/CHLAMYDIA NAAT Lab Routine Special screening examination for infectious diseases Expected: 03/11/2024, Expires: 06/10/2024[facility] ClinicComment on above:Expected: 03/11/2024, Expires: 06/10/2024Start: 03-11-2024 End: 11-21-7098Cstnjnccpajuzmf IgG Ab [Units/volume] in Serum or PlasmaCMV IGG ANTIBODY BL Lab Routine Special screening examination for infectious diseases Expected: 03/11/2024, Expires: 06/10/2024[facility] ClinicComment on above: Expected: 03/11/2024, Expires: 06/10/2024Start: 03-11-2024 End: 15-09-6198Sbpnonfquhxlqmv IgM Ab [Units/volume] in Serum or PlasmaCMV IGM AB Lab Routine Special screening examination for infectious diseases Expected: 03/11/2024, Expires: 06/10/2024[facility] ClinicComment on above:Expected: 03/11/2024, Expires: 06/10/2024Start: 03-11-2024 End: 82-43-3027Vpkqpkscgz A1c in BloodHEMOGLOBIN A1C Lab Routine Reproductive mgmt, 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 Expected: 03/11/2024, Expires: 06/10/2024 [facility] HospitalComment [facility]:Expected: 03/11/2024, Expires: 06/10/2024Start: 03-11-2024 End: 67-56-9069Ciptkldks B virus core Ab [Presence] in SerumHEPATITIS B CORE ANTIBODY TOTAL Lab Routine Special screening examination for infectious diseases Expected: 03/11/2024, Expires: 06/10/2024[facility] ClinicComment on above: Expected: 03/11/2024, Expires: 06/10/2024Start: 03-11-2024 End: 69-73-5709Lzvtmarvy B virus surface Ag [Presence] in SerumHEPATITIS B SURFACE ANTIGEN Lab Routine Special screening examination for infectious diseases Expected: 03/11/2024, Expires: 06/10/2024[facility] ClinicComment on above:Expected: 03/11/2024, Expires: 06/10/2024Start: 03-11-2024 End: 62-23-9467Uwjgnbqtv C virus Ab [Presence] in SerumHEPATITIS C ANTIBODY IA WITH CONFIRMATION Lab Routine Special screening examination for infectious d iseases Expected: 03/11/2024, Expires: 06/10/2024[facility] ClinicComment on above:Expected: 03/11/2024, Expires: 06/10/2024Start: 03-11-2024 End: 55-94-5705OII 1+2 Ab [Presence] in Serum or Plasma by ImmunoassayHIV 1/2 COMBO WITH REFLEX TO DIFFERENTIATION Lab Routine Special screening examination for infectious diseases Expected: 03/11/2024, Expires: 06/10/2024[facility] ClinicComment on above:Expected: 03/11/2024, Expires: 06/10/2024Start: 03-11-2024 End: 33-23-4645WUCJNIM IGG ANTIBODYRUBELLA IGG ANTIBODY Lab Routine Special screening examination for infectious diseases Expected: 03/11/2024, Expires: 06/10/2024[facility] ClinicComment on above:Expected: 03/11/2024, Expires: 06/10/2024Start: 03-11-2024 End: 46-36-9880LVGYMLKM TREPONEMAL W/REFLEXSYPHILIS TREPONEMAL W/REFLEX Lab Routine Special screening examination for infectious diseases Expected: 03/11/2024, Expires: 06/10/2024[facility] ClinicComment on above:Expected: 03/11/2024, Expires: 06/10/2024Start: 03-11-2024 End: 07-42-4063FDAH + SCREEN PRENATALTYPE + SCREEN Blood Bank Routine Reproductive mgmt, 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 Work Phone: Comment on above:Expected: 03/11/2024, Expires: 06/10/2024Start: 03-09-2024 End: 49-41-9898hhqtlxjjnh52/22/2024 10:00 AM EST [facility] Reproductive Endocrinology Infertility [address] [place] [address] Melodie Hernandez APRN.SUPERVISOR [employer]ARD [address] [place] [address] Donor sperm teachReproductive Endocrinology InfertilityComment on above:Donor sperm teachStart: 02-20-2024 End: 06-31-6137Mgyhxiz encounter nfiomewkm81/04/2024 2:50 PM EST Office Visit [facility] OB [address] [place] [id number] Les Martinez, DO [address] [place], [place] [address] ArrivedNOMS BCP OBComment on above:ArrivedStart: 62-88-9894Gbwzj-19 Vaccine ( season)Covid-19 Vaccine ( season)[facility]: 56-62-9089Qcjum-19 Vaccine ( season) Covid-19 Vaccine ( season)[facility]: 00-74-5192Jqhtogpvg vaccinationInfluenza Vaccine (#1)[facility] HealthcareStart: 12-07-2023 End: 23-26-4306FhnkaplxwLouis Stokes Cleveland VA Medical Centertart: 54-70-4156VuekliunzMercy Health St. [facility] Hospital CenterStart: 51-79-7182KvhqxuvnzMercy Health St. [facility] Warren Hospital CenterStart: 44-24-2438HtffnoignMercy Health St. Joseph Warren Hospital CenterStart: 75-52-6402YvniueapqLouis Stokes [facility] Centertart: 06-11-2022 End: 53-00-9516IrrhmshlgMercy Health St. Joseph Warren Hospital CenterStart: 78-59-2728Qjzywjam admissionLouis Stokes Cleveland VA Medical Centertart: 86-67-7450MidjpajqyMercy Health St. Joseph Warren Hospital CenterStart: 11-17-1709LpkppsbtrLouis Stokes [facility] Medical Centertart: 65-37-2585OecbnsrirLouis Stokes [facility] Medical Centertart: 26-93-3499Tzpjinyt identified in Urine by CultureUrine CultureLouis Stokes Cleveland VA Medical Centertart: 49-42-5729Acfzrvmb identified in Urine by CultureUrine CultureLouis Stokes Cleveland [facility] Medical Centertart: 05-16-2020 End: 63-86-0608Ucxkxa Visit05/16/2020 Office Visit Bariatrics Rashard Olivera, [address] [facility] [address] [place] [address] [facility] Invasive Bariatric SurgStart: 05-06-2020 End: 37-96-4910Rrkvanqn EncounterST ORComment on above:XI LAPAROSCOPIC ROBOTIC GASTRIC BYPASS BEN-EN-Y, LIVER BIOPSY, EGD- GI UNIT SCHEDULED.Start: 05-02-2020 End: 77-35-5662XTFFYCOVID- Lab Routine Pre-op testing Expected: 05/02/2020, Expires: 05/01/2021[facility] on above:Expected: 05/02/2020, Expires: 05/01/2021tart: 05-02-2020 End: 13-80-5020Hkmkdl VisitProv[facility] Invasive Bariatric SurgStart: 22-16-0243XEE QnTSH testingTrinity Health System: 33-65-2114Ywkkjdhgu vaccinationFlu vaccine (#1)[facility]: 57-22-7871Cekhdwmoh for malignant neoplasm of cervixMcKitrick Hospitaltart: 50-33-1658PCxD,Tdap and Td Vaccines (1 - Tdap)DTaP,Tdap and Td Vaccines (1 - Tdap)[facility]: 88-36-3377MPsD/Tdap/Td vaccine (1 - Tdap)DTaP/Tdap/Td vaccine (1 - Tdap)[facility]: 51-62-2995Rqnafqglp B Vaccine (1 of 3 - 19+ 3-dose series) Hepatitis B Vaccine (1 of 3 - 19+ 3-dose series)[facility]: 70-60-1207Epfumrugc B Vaccines (1 of 3 - 19+ 3-dose series)Hepatitis B Vaccines (1 of 3 - 19+ 3-dose series)[facility]: 2014 Urine microalbumin profileDTaP,Tdap,Td Vaccine (1 - Tdap)[facility]: 89-14-2512Piiei BMI Follow Up PlanAdult BMI Follow Up PlanCarolinas ContinueCARE Hospital at Universitytart: 62-15-9369Ospjs BMI ScreeningAdult BMI ScreeningCarolinas ContinueCARE Hospital at Universitytart: 48-15-8919Yspohju ScreeningAnxiety ScreeningMcKitrick Hospitaltart: 90-25-5786Kmevfewvjm ScreeningDepression ScreeningMcKitrick Hospitaltart: 27-43-4895Ebbbczbie C screeningHepatitis C ScreeningMcKitrick Hospitaltart: 95-32-9365RNB screeningHIV ScreeningMcKitrick Hospitaltart: 35-69-8825EDO screeningHIV screenTrinity Health System: 74-09-1189Lilwbrkri vaccination Varicella Vaccines (1 of 2 - 13+ 2-dose series)[facility] Start: 59-22-0255Wanvcieifc ScreeningDepression ScreeningGrand Lake [facility] Start: 77-88-6115Oxprsjs ScreeningTobacco ScreeningCarolinas ContinueCARE Hospital at Universitytart: 41-50-4385BFW vaccine (1 - 2-dose series)HPV vaccine (1 - 2-dose series)[facility]: 45-83-3664HMF Vaccines (1 of 1 - Standard series)MMR Vaccines (1 of 1 - Standard series)[facility]: 06-34-1681Zcmpdzbwv vaccine (1 of 2 - 2-dose childhood series)Varicella vaccine (1 of 2 - 2-dose childhood series)[facility]: 59-63-6331Obgoyiytv C screeningHepatitis C [facility]: 83-89-1164VJD screening HIV ScreeningThe [facility]: 82-56-5359Krbhs panelLipid PanelThe [facility]: 65-16-1831Qquviw Adult Physical Yearly Adult PhysicalUnOhioHealth Marion General HospitalaPTT in Platelet poor plasma by Coagulation assayFirelands Regional Medical CenterBacteria identified in Genital specimen by Aerobe cultureMercy Health Allen HospitalBacteria identified in Urine by CultureUrine culture Microbiology Routine Missed menses Ordered: 09/20/2024[facility] HealthcareComment on above:Ordered: 09/20/2024alcitriol [Mass/volume] in Serum or PlasmaMercy Health Allen HospitalCBC W Auto Differential panel - BloodCBC and differential Lab Routine Missed menses , unspecified gestational age Ordered: 09/20/2024[facility] HealthcareComment on above:Ordered: 09/20/2024HLAMYDIA TRACHOMATIS (GENITO/STI)CHLAMYDIA TRACHOMATIS (GENITO/STI) Lab Routine Exposure to STD Ordered: 11/20/2024[facility] HealthcareComment on above:Ordered: 11/20/2024ontinuous pulse oximetryPulse oximetry, continuous Respiratory Care Routine Every 4hr until discontinued starting 05/06/2020[facility] [place], [place] on above:Every 4hr until discontinued starting 05/06/2020T Abdomen and Pelvis WO and W contrast IV [facility] Allen HospitalCytology Cervical or vaginal smear or scraping studyPap Smear Pathology and Cytology Routine Well woman exam with routine gynecological exam Ordered: 02/20/2024[facility] Healthcare Work Phone: comment on above:Ordered: 02/20/2024Electromyography [facility] Allen HospitalF5 gene mutations found [Identifier] in Blood or Tissue by Molecular genetics method NominalMercy Health Allen Hospital Factor VIII: C assayMercy Health Allen HospitalGlucose measurement estimated from glycated hemoglobinMercy Health Allen HospitalHemoglobin A1c/Hemoglobin.total in [facility] Hospital [facility] YoungstownHemoglobin A1c/Hemoglobin.total in BloodHemoglobin A1c Lab Routine Missed menses , unspecified gestational age Ordered: 09/20/2024[facility] HealthcareComment on above: Ordered: 09/20/2024Hepatitis B virus surface Ag [Presence] in Serum or Plasma by ImmunoassayHepatitis B surface antigen Lab Routine Missed menses , unspecified gestational age Ordered: 09/20/2024[facility] HealthcareComment on above: Ordered: 09/20/2024Hepatitis C virus Ab [Presence] in Serum or Plasma by ImmunoassayHepatitis C antibody Lab Routine Missed menses , unspecified gestational age Ordered: 09/20/2024[facility] HealthcareComment on above:Ordered: 09/20/2024HIV-1/HIV-2 antigen/antibody combination immunoassayHIV-1 and HIV-2 antibodies Lab Routine Missed menses , unspecified gestational age Ordered: 09/20/2024[facility] HealthcareComment on above:Ordered: 09/20/2024INR in Platelet poor plasma by Coagulation assayMercy Health Allen Hospital Mullerian inhibiting substance [Mass/volume] in Serum or PlasmaMercy Health Allen HospitalNebulizer therapyHHN Treatment Respiratory Care Routine TID until discontinued starting 05/06/2020[facility], KYComment on above: TID until discontinued starting 05/06/2020Neisseria gonorrhoeae DNA [Presence] in Unspecified specimen by AC with probe detectionNeisseria gonorrhea DNA probe, direct Lab Routine Exposure to STD Ordered: 11/20/2024[facility] Healthcare Comment on above:Ordered: 11/20/2024Oxygen therapy [Minimum Data Set]Initiate Oxygen Therapy Protocol Respiratory Care Routine Daily until discontinued starting 05/06/2020[facility], KYComment on above:Daily until discontinued starting 05/06/2020atient EducationMercy Health St. [facility] Work Phone: Patient referralMercy Health St. [facility] Work Phone: Reagin Ab [Presence] in Serum by RPRRPR Lab Routine Missed menses , unspecified gestational age Ordered: 09/20/2024[facility] HealthcareComment on above:Ordered: 09/20/2024Rubella antibody, IgGRubella antibody, IgG Lab Routine Missed menses , unspecified gestational age Ordered: 09/20/2024[facility] HealthcareComment on above:Ordered: 09/20/2024Spirometry panelIncentive spirometry Respiratory Care Routine Every 2hr while awake until discontinued starting 05/06/2020[facility], KYComment on above:Every 2hr while awake until discontinued starting 05/06/2020URESWAB(R) ADVANCED VAGINITIS PLUS, TMASURESWAB(R) ADVANCED VAGINITIS PLUS, TMA Pathology and Cytology Routine Exposure to STD Ordered: 11/20/2024[facility] Healthcare Work Phone: comment on above:Ordered: 11/20/2024Surgical Pathology Surgical Pathology Lab Routine Release Upon Ordering for 1 Occurrences starting 05/06/2020[place], [place]Comment [place]:Release Upon Ordering for 1 Occurrences starting 05/06/2020 End: 15-27-8672Pkrcwvrcxdf [Units/volume] in Serum or PlasmaTSH Lab Routine Thyroid disease every 4 weeks for 6 Occurrences starting 11/20/2024 until 11/20/2025[facility] HealthcareComment on above:every 4 weeks for 6 Occurrences starting 11/20/2024 until 11/20/2025Thyrotropin [Units/volume] in Serum or PlasmaTSH Lab Routine TSH (thyroid-stimulating hormone deficiency) Ordered: 01/16/2025[facility] HealthcareComment on above:Ordered: 01/16/2025von Willebrand factor (vWf) Ag [Units/volume] in Platelet poor plasmaMercy Health Allen Hospitalvon Willebrand factor (vWf) multimers in Platelet poor plasma by [facility] Hospitalvon Willebrand factor (vWf) ristocetin cofactor actual/normal in Platelet poor plasma by Platelet ag [facility] Immunizations Immunization DateImmunizationNotesCare DdgsxmftSiunvtvq51-79-3524wqrqqdo toxoid, reduced diphtheria toxoid, and acellular pertussis vaccine, Melvin Sinclair MD Work Phone: [facility] CareKmfydtfclr03-63-8359DWJZF-84 mRNA-1273 (Moderna) MELY Ford Work Phone: [facility]04-06-2021COVID-19 mRNA-1273 (Moderna)MELY Ford Work Phone: [facility] Payers DatePayer CategoryPayerPolicy [id number] 2023Medicaid [id number] [id number] [id number] 1.2.840.589304.1.13.239.2.7.3.803505.03782-15-3028Jfooxey [id number] 2..840.1.590456.3.57[id number] 2..840.1.805363.3.57[id number] 2..840.1.991506.3.57[id number] 2..840.1.888616.3.57[id number] 2..840.1.072418.3.57[id number] 2..840.1.261377.3.57[id number] 2..840.1.813211.3.57[id number] 2..840.1.011452.3.57[id number] 2.16.840.1.364936.3.57[id number] 2.840.1.362545.3.57[id number] 2.16.840.1.073507.3.57[id number] 2..840.1.930935.3.57[id number] 2.840.1.398279.3.579.2.3[id number] 2.840.1.252153.3.579.[id number] 2.0.1.388712.3.57[id number] 2.840.1.356835.3.579.2.300056-78-6753Bsinjwj229010162 2..1.969300.3.57[id number] 2.0.1.402647.3.57[id number] 2..1.750618.3.57[id number] 2..1.303777.3.57[id number] 2.0.1.268367.3.579.2.263249-07-7603Vxltlxh86230000 2..1.758230.3.579.2.347996-56-1985Mgamnqh89234972 2.840.1.627271.3.579.2.923263-64-9563Egtanyh43159099 2.0.1.841492.3.57[id number] 2.840.1.608054.3.579.2.033547-96-0507Syzvtfy34107889 2.0.1.012918.3.579.2.150306-82-4683Lzivcvj11471235 2.16.840.1.460649.3.57[id number] 2.16.840.1.854558.3.579.2.1259Prschwertnerte [facility] Claims [id number] 2.1[id number] 2.16.840.1.6[id number] 2.16.840.1.390[id number] 2.16.840.1.205634.3.579.2.531 Social History DateTypeDetailFacilityStart: 04-22-2020 End: 10-37-8732Jjgllnq smoking status NHISNever smokerTrinity Health System: 04-22-2020 End: 78-80-7751Xyzyjfv use and exposureNever usedTrinity Health System: 04-22-2020 End: 39-94-4046Rthopep intakeCurrent non-drinker of alcohol (finding)[facility]: 53-70-2230Muy Assigned At BirthNot on [place]Exposure to SARS-CoV-2 (event)Not sureTrinity Health System: 01-17-2023 Tobacco smoking statusNeverFayette County Memorial Hospital CenterStart: 11-28-2023 End: 21-56-1614Dnh [facility] Cancer Other Start: 32-35-9445Dlm Assigned At [facility] WestFeParkview Healthtart: 04-33-4714Cepksfc smoking status NHISCurrent some day smokerLouis Stokes Cleveland VA Medical Centertart: 04-18-2023 End: 87-48-3713Beuwiko smoking status NHISSmoker (finding)[facility] Centertart: 11-28-2023 End: 03-96-8365Zpwckaz smoking status NHISSmokes tobacco dailyNOMS Healthcare Start: 38-98-0138Bnjvybc of tobacco useCigarette SmokerNOMS HealthcareStart: 11-28-2023 End: 75-29-4505Dglmuwvftu smoked current (pack per day) - Reported0.5NOMS HealthcareStart: 11-28-2023 End: 62-52-3204Ycoctkbmi beverage intakeEx-drinker (finding)[facility] Start: 45-39-7214Frfcnpe Commentcaffeine: 1-2 cups per day teaNOMS Healthcare Start: 35-95-4820Bhwntv identityIdentifies as female gender (finding)[facility] HealthcareStart: 11-21-2014 End: 95-70-1258TotNgbugo (finding)[facility] HospitalTobacco smoking status NHISTobacco smoking consumption unknownJamaica ClinicStart: 02-80-3327EwyzdrdyqZfklksmanLouis Stokes [facility] Medical Centertart: 10-18-2024 End: 70-50-6541Qxvphbi smoking status NHISEx-smoker (finding)[facility] HospitalNEGATED: Highlighted rowGreen Cross Hospital Medical Equipment Procedure CodeEquipment CodeEquipment Original TextEquipment IdentifierDates Functional endoscopic sinus surgery (FESS) with sinuplastyBUTTON NASAL SEPTAL 3CMFDAStart: 46-27-4373Gqvusqrnih endoscopic sinus surgery (FESS) with sinuplastyBUTTON NASAL SEPTAL 3CMFDAStart: 13-23-0108Kloogubwiq endoscopic sinus surgery (FESS) with sinuplastyBUTTON NASAL SEPTAL 3CMFDAStart: 10-15-2019 Functional endoscopic sinus surgery (FESS) with sinuplastyBUTTON NASAL SEPTAL 3CMFDAStart: 97-55-9075Czbkptskpn endoscopic sinus surgery (FESS) with sinuplastyBUTTON NASAL SEPTAL 3CMFDAStart: 16-12-7075Kasifewtia endoscopic sinus surgery (FESS) with sinuplastyBUTTON NASAL SEPTAL 3CMFDAStart: 10-15-2019 Functional endoscopic sinus surgery (FESS) with sinuplastyBUTTON NASAL SEPTAL 3CMFDAStart: 96-85-9039Kllorxyuqo endoscopic sinus surgery (FESS) with sinuplastyBUTTON NASAL SEPTAL 3CMFDAStart: 20-30-8925Atootlzjmj endoscopic sinus surgery (FESS) with sinuplastyBUTTON NASAL SEPTAL 3CMFDAStart: 10-15-2019 Functional endoscopic sinus surgery (FESS) with sinuplastyBUTTON NASAL SEPTAL 3CMFDAStart: 99-32-8576Bbujcfraky endoscopic sinus surgery (FESS) with sinuplastyBUTTON NASAL SEPTAL 3CMFDAStart: 44-08-5628Zelmkmiihm endoscopic sinus surgery (FESS) with sinuplastyBUTTON NASAL SEPTAL 3CMFDAStart: 10-15-2019 Functional endoscopic sinus surgery (FESS) with sinuplastyBUTTON NASAL SEPTAL 3CMFDAStart: 84-50-0430Gjmnzknjde endoscopic sinus surgery (FESS) with sinuplastyBUTTON NASAL SEPTAL 3CMFDAStart: 83-14-6074Njnzgcyekz endoscopic sinus surgery (FESS) with sinuplastyBUTTON NASAL SEPTAL 3CMFDAStart: 10-15-2019 Functional endoscopic sinus surgery (FESS) with sinuplastyBUTTON NASAL SEPTAL 3CMFDAStart: 10-06-2011Bhykbjazpj endoscopic sinus surgery (FESS) with sinuplastyBUTTON NASAL SEPTAL 3CMFDAStart: 14-36-9168Gwsnxamafk endoscopic sinus surgery (FESS) with sinuplastyBUTTON NASAL SEPTAL 3CMFDAStart: 10-15-2019 Functional endoscopic sinus surgery (FESS) with sinuplastyBUTTON NASAL SEPTAL 3CMFDAStart: 74-65-3855Xncelonnyh endoscopic sinus surgery (FESS) with sinuplastyBUTTON NASAL SEPTAL 3CMFDAStart: 74-33-8995Hjnsnjfozv endoscopic sinus surgery (FESS) with sinuplastyBUTTON NASAL SEPTAL 3CMFDAStart: 10-15-2019 Functional endoscopic sinus surgery (FESS) with sinuplastyBUTTON NASAL SEPTAL 3CMFDAStart: 17-60-5333Csbidu/ligament bone anchor, non-bioabsorbable ()[id number] FDAStart: 88-09-5718Wzmpqv/ligament bone anchor, non-bioabsorbable()[id number] FDA Start: 25-64-6776Sswxkr/ligament bone anchor, non-bioabsorbable ()[id number] FDAStart: 48-59-7273Zgucrl/ligament bone anchor, non-bioabsorbable()[id number] FDAStart: 12-07-2023 Goals DatePatient GoalDesired Activity/StatePersonal health goal Functional Status PvaqOpppfywsijSqooqgJjmjbakn55-39-4917Dzkqomeign statusPatient at [facility] Work Phone: [phone]) [phone]xzwgnqk statusPatient at [facility] Work Phone: Mental Status NadgIctoequtveJmeeuaQxrilewf56-65-1189Qjdirfgbr functionCognitive Status Patient at [facility] Work Phone: 1(951) [phone]zhklgwj functionCognitive Status Patient at [facility] Work Phone: Clinical Notes 07-16-2021 to 02-19-2025 Note Date & UbgyLifcMffctqda62-63-4845 History of Present illness Narrative* Alana Valverde, [...] nursing note reviewed. Exam conducted with a press tender incendiary grenade present. Vitals: Estimated body mass index is 40.03 kg/m as calculated from the following: Height as of 08/22/24: 5' 11 . Weight as of this encounter: 287 lb. BP: 128/76 No LMP recorded. Patient is . Assessment/Plan ICD-10-CM 1. Third trimester ([facility]) Z34.93 POCT urinalysis dipstick manually resulted 2. 31 weeks gestation of ([facility]) Z3A.31 3. TSH (thyroid-stimulating hormone deficiency) E03.8 [...] of: Les Martinez DO documented in this encounterUniversity of Missouri Health CareBtrqymgmtp78-97-8294 History of Present illness Narrative* MELVI Engle [...] . Assessment/Plan ICD-10-CM 1. Third trimester ([facility]) Z34.93 2. 29 weeks gestation of ([facility]) Z3A.29 POCT urinalysis dipstick manually resulted Return [...] behalf of: MELVI Engle documented in this encounterUniversity of Missouri Health CareCrfscfonbn79-18-0511 History of Present illness Narrative* Mima Duenas [...] nursing note reviewed. Exam conducted with a press tender incendiary grenade present. Vitals: Estimated body mass index is 38.49 kg/m as calculated from the following: Height as of 08/22/24: 5' 11 . Weight as of this encounter: 276 lb. BP: 122/80 No LMP recorded. Patient is . ASSESSMENT & PLAN ICD-10-CM 1. 26 weeks gestation of ([facility]) Z3A.26 POCT urinalysis dipstick manually resulted 2. Second trimester ([facility]) Z34.92 3. TSH (thyroid-stimulating hormone deficiency) E03.8 [...] of: Mima Duenas NP documented in this encounterUniversity of Missouri Health CareTdkffjiink28-27-9731 Miscellaneous Notes* Telephone Encounter - Roslyn Griffin RN - 01/03/2025 3:44 PM EDT Called patient to schedule her follow up survey in 4-6 weeks per appointment tracker. No answer left message to call back to schedule the follow up ultrasound. documented in this encounterGrand [facility] Telephone encounter Note* Telephone Encounter - Roslyn Griffin RN - 01/03/2025 3:44 PM EDT Called patient to schedule her follow up survey in 4-6 weeks per appointment tracker. No answer left message to call back to schedule the follow up ultrasound. [facility]09-[facility] History of Present illness Narrative* [...] PLAN ICD-10-CM 1. 22 weeks gestation of ([facility]) Z3A.22 POCT urinalysis dipstick manually resulted 2. Second trimester ([facility]) Z34.92 POCT urinalysis dipstick manually resulted 3. [...] behalf of: MELVI Engle documented in this encounterUniversity of Missouri Health CareNnvlwuxmmx01-72-4206 History of Present illness Narrative* Enrike Lindquist [...] follows with the behavioral health up in [place] History of migraines. Has been getting some [...] Pee's thyroiditis Hx of iron deficiency anemia [place] product of in vitro fertilization (IVF) Ovarian [...] mouth in the morning., Disp: , Rfl: [id number] acid ( 19) 29 mg iron- 1 [...] Calcium: recommend 1000-1200mg daily; if deficient, recommend 7493-4361 mg PO daily in divided doses Vitamin [...] 5. 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 The crystal grower should be made awareat the time of [...] Enrike Lindquist MD, FACOG (she/hers) Maternal- Medicine [facility] [address] [place] [address] This document was created with [employer] technology. Though I make every effort to review the dictation as it is transcribed, on occasion the spoken word can be misinterpreted by the technology leading to inappropriate words, phrases, or sentences. This note is addressed to the requesting provider as a consultation for clinical guidance. Specificmedical abbreviations are occasionally used and those are generally approved by the [place]?Board of?Obstetrics and?Gynecology?as well as?Marilee s abbreviations. The above plan of care was based solely on the diagnoses for which a consultation was requested. ?More frequent testing may be indicated based on her other medical/obstetrical conditions. The management of other or medical conditions is beyond the scope of requested consultation and will c ontinue to be followed by the primary gelatin powder mixer or primary care provider. Note to patient: [...] CF Have you been seen here at [facility] in a previous ? NA Recent ER visits or hospitalizations? See notes above Bring blood sugar log or meter with you today? (Please bring them with you for every visit at [facility]) NA Flu vaccine (Feb-June)? NA Any concerns that you would like me to mention to the provider today? Questions about glucose testing and her having gastric bypass surgery documented in this encounterGrand [facility]08-05-2025 History of Present illness Narrative* [...] nursing note reviewed. Exam conducted with a press tender incendiary grenade present. Vitals: Estimated body mass index is [...] gonorrhea DNA probe, direct 3. Second trimester ([facility]) Z34.92 POCT urinalysis dipstick manually resulted 4. 18 weeks gestation of ([facility]) Z3A.18 5. Need for maternal serum alpha-protein (MSAFP) screening ([facility]) Z36.1 Alpha fetoprotein, maternal Alpha fetoprotein, maternal 6. Screening, , for anatomic survey ([facility]) Z36.89 US OB 14+ weeks anatomy scan [...] of: Les Martinez DO documented in this encounterUniversity of Missouri Health CareJxttutuptt07-03-9635 History of Present illness Narrative* Mima Duenas [...] nursing note reviewed. Exam conducted with a press tender incendiary grenade present. Vitals: Estimated body mass index is 31.24 kg/m as calculated from the following: Height as of 08/22/24: 5' 11 . Weight as of this encounter: 224 lb. BP: 110/62 No LMP recorded. Patient is . ASSESSMENT & PLAN ICD-10-CM 1. 13 weeks gestation of ([facility]) Z3A.13 POCT urinalysis dipstick manually resulted 2. Second trimester ([facility]) Z34.92 POCT urinalysis dipstick manually resulted 3. Thyroid disease E07.9 4. H/O gastric sleeve Z90.3 5. H/O iron deficiency anemia Z86.2 6. resulting from in vitro fertilization in first trimester ([facility]) O09.811 Return OB: Patient presents today for [...] of: Les Martinez DO documented in this encounterUniversity of Missouri Health CareZeonxieojz44-85-8331 Radiology Diagnostic study [facility] [address] [place] [address] Ultrasound Report Signed Patient: Jaz Sanders MR#: [id number] : 1995 Acct:[id number] Age/Sex: 29 / F ADM Date: 5 Loc: ER Room: Type: [facility] ER Attending Dr: Ordering Provider: Kassidy [...] 10/18/2024 2:21 PM Dictation Location: [place] [address] Tech: Natalie Raissa Transcribed By: MAITE 10/18/24 1421 Dictated By: Sravan Dickinson Jr, DO 10/18/24 1419 Signed By: 10/18/24 1421 [facility]06-05[facility] History of Present illness Narrative * [...] screen, urine; Future Nurse Note: Patient declined [place] at this time. Patient is an IVF from [facility]. OB Intake: Patient presents today for first OB visit. Patients history has been reviewed in great detail including any potential risks. Patient signed consent forms and patient desires testing in both trimesters. Patient currently has no complaints and has been advised to drink 6-8 glasses of water a day, eatno raw or undercooked meat, and stay away from [facility]. Patient has also been advised [...] by: Marsha Asif MA documented in this encounterUniversity of Missouri Health CareExcalvwhys77-20-4578 NoteHNO ID: [id number] Author: MELODIE HERNANDEZ APRN.SUPERVISOR POLE YARD Service: ? Author Type: Nurse Practitioner Type: [...] 3. Cycle Day: Last menstrual period: 07/19/2024 [place] Protocol: UNIVERSAL PROTOCOL / SAFETY CHECKLIST Procedure [...] Sanders DATE: September 05, 2024 TIME: 10:45 [facility]05-19-2025 History of Present illness Narrative* Manisha [...] 03, 2024 5:39 PM documented in this encounterGal[facility]05-19-2025 NoteHNO ID: [id number] Author: MANISHA WEAVER APRN.CNP Service: ? Author [...] Plan Move on to OB Manisha Weaver APRN.SUPERVISOR POLE YARD September 03, 2024 5:39 [facility]05-15-2025 NoteHNO ID: [id number] Author: MIKEY TORRES MD Service: ? Author Type: Physician Type: Progress Notes Filed: 08/30/2024 16:36 Note Text: Viable ratliff IUP Size equal Date. Plan: patient to follow up with her ob for care. Stacy Banuelos [facility]05-15-2025 History of Present illness Narrative* Mikey Torres [...] scheduled Melodie Hernandez APRN.JARROD documented in this encounterGal[facility]05-13-2025 NoteHNO ID: [id number] Author: MELODIE HERNANDEZ APRN.CNP Service: ? Author [...] scan next week as scheduled Melodie Hernandez APRN.CNPUniversity Hospitals Health System05-09-2025 Telephone encounter Note* Telephone Encounter - Melodie [...] open slot. Call to patient needed: no [facility]05-09-2025 Miscellaneous Notes* Telephone Encounter - Melodie [...] the patient for the following- Location: [facility] Provider: nurse Visit type: scan Reason for visit/appointment notes: scan Date: 08/28 Time (requested): 1110 If slot is full, please schedule the closest open slot. Call to patient needed: no * Telephone Encounter - Angella Mccarthy - 08/23/2024 10:37 AM EDT Name: Jaz Sanders called today. : 1995 (home) [phone] (cell) Reason for call: pt called today informing the nurse she has been experiencing pain of level 4 from1-10. Pt has been experiencing pain for 2 day. 5 weeks today. The patients preferred pharmacy has been captured for this encounter? Angella Morillo Vehicle Check In Clerk documented in this encounterGal[facility]05-[facility] Telephone encounter Note * Telephone Encounter - Arminda Ward RN - 08/24/2024 1:58 PM EDT See 08/23/24 LIBBY Ward RN August 24, 2024 1:58 PM [facility]05-09-2025 Miscellaneous Notes* Telephone Encounter - Arminda Ward RN - 08/24/2024 1:58 PM EDT See 08/23/24 LIBBY Ward RN August 24, 2024 1:58 PM * Telephone Encounter - Manisha Ding - 08/24/2024 11:52 AM EDT Pt would like a call back documented in this encounterGal[facility]05-[facility]-2025 Telephone encounter Note * Telephone Encounter - Manisha Ding - 08/24/2024 11:52 AM EDT Pt would like a call back [facility]05-08-2025 Telephone encounter Note* Telephone Encounter - Angella Mccarthy - 08/23/2024 10:37 AM EDT Name: Jaz Sanders called today. : 1995 (home) [phone] (cell) Reason for call: pt called today informing the nurse she has been experiencing pain of level 4 from1-10. Pt has been experiencing pain for 2 day. 5 weeks today. The patients preferred pharmacy has been captured for this encounter? Angella Morillo Vehicle Check In Clerk [facility]05-08-2025 Telephone encounter Note* Telephone Encounter - Arminda Ward RN - 08/23/2024 8:53 AM EDT See 08/20 Distance health visit Arminda Ward RN August 23, 2024 8:53 AM [facility]05-08-2025 Miscellaneous Notes* Telephone Encounter - Arminda Ward RN - 08/23/2024 8:53 AM EDT See 08/20 Distance health visit Arminda Ward RN August 23, 2024 8:53 AM documented in this encounterGal[facility] Hospital05-07-2025 History of Present illness Narrative* Darleen [...] levothyroxine 50 mcg daily, administered in the international guest coordinator on an empty stomach. There have been [...] 1 year (around 08/22/2025). documented in this encounterUniversity of Missouri Health CareIlwkntopzg66-97-7884 NoteHNO ID: [id number] Author: MELODIE HERNANDEZ APRN.SUPERVISOR POLE YARD Service: ? Author Type: Nurse Practitioner Type: [...] visit. Either the patient or their legal specialty sales representative has been informed of the [...] providers Schedule with OB: 09/13 Melodie Hernandez APRN.SUPERVISOR POLE YARD August 20, 2024 8:33 AM Please schedule the patient for the following- [place] Provider: nurse Visit type: Reason for visit/appointment notes: scan Date: 09/03 Time (requested): 1040 If slot is full, please schedule the closest open slot. Call to patient needed: no I spent a total of 30 minutes on the date of the service which included preparing to see the patient, rfyp-sg-gvfd patient care, completing clinical documentation, obtaining and/or [...] be grammatical and typographical errors missed in proofreading.[facility]05-05-[facility] History of Present illness Narrative* Melodie Hernandez [...] visit. Either the patient or their legal specialty sales representative has been informed of the [...] schedule the patient for the following- Location: [place] Provider: nurse Visit type: Reason for visit/appointment notes: scan Date: 09/03 Time (requested): 1040 If slot is full, please schedule the closest open slot. Call to patient needed: no I spent a total of 30 minutes on the date of the service which included preparing to see the patient, qwva-na-szuq patient care, completing clinical documentation, obtaining and/or [...] errors missed in proofreading. documented in this encounterGal[facility] Hospital05-01-2025 Telephone encounter Note * Telephone Encounter - Daniel Hanna APRN.CNP - 08/16/2024 5:15 PM EDT Called patient back to phone number listed in [employer]-no answer. Lm for patient to look out for Mychart message. Daniel Hanna APRN.CNP August 16, 2024 5:15 PM [facility]05-01-2025 Miscellaneous Notes* Telephone Encounter - Daniel Hanna APRN.CNP - 08/16/2024 5:15 PM EDT Called patient back to phone number listed in [employer]-no answer. Lm for patient to look out for Mychart message. Daniel Hanna APRN.CNP August 16, 2024 5:15 PM * Telephone Encounter - Angella Mccarthy - 08/16/2024 12:29 PM EDT Name: Jaz Sanders called today. : 1995 (home) [phone] (cell) Reason for call: pt called that she got positive test, she has been having having cramping since last night , it happens every hours for couple minutes. The patients preferred pharmacy has been captured for this encounter? yes Angella Morillo Vehicle Check In Clerk documented in this encounterGal[facility]05-01-2025 Telephone encounter Note * Telephone Encounter - Angella Mccarthy - 08/16/2024 12:29 PM EDT Name: Jaz Sanders called today. : 1995 (home) [phone] (cell) Reason for call: pt called that she got positive test, she has been having having cramping since last night , it happens every hours for couple minutes. The patients preferred pharmacy has been captured for this encounter? yes Angella Morillo Vehicle Check In Clerk [facility]04-30-2025 Telephone encounter Note* Telephone Encounter - Manisha Ding - 08/15/2024 2:10 PM EDT Pt is preg and wants to know if she can take benadryl due to her having hives [facility]04-30-2025 Miscellaneous Notes* Telephone Encounter - Manisha Ding - 08/15/2024 2:10 PM EDT Pt is preg and wants to know if she can take benadryl due to her having hives documented in this encounterGalion Hospital04-15-2025 NoteHNO ID: [id number] Author: DOMINGUEZ BARRY, ? Service: ? Author Type: Paramedic Supervisor Type: Progress Notes Filed: 09/05/2024 22:45 Note Text: IUI Cryobio Donor # [id number] Pre: frozen washed specimen Post: 82 M/ml, 67% Insem # 27.5 millionUniversity Hospitals Health System04-15-2025 NoteHNO ID: [id number] Author: DOMINGUEZ BARRY, ? Service: ? Author Type: Paramedic Supervisor Type: Progress Notes Filed: 07/31/2024 15:26 Note Text: Thaw for IUI. [facility] History of Present illness Narrative* Dominguez Barry - 07/31/2024 3:25 PM EDT Thaw for IUI. Dominguez Barry documented in this encounterGalion Hospital04-15-2025 NoteHNO ID: [id number] Author: DOMINGUEZ BARRY, ? Service: ? Author Type: Paramedic Supervisor Type: Progress Notes Filed: 09/05/2024 22:45 Note Text: IUI specimen released to provider Dominguez Barry July 31, 2024 3:24 [facility]04-15-2025 NoteHNO ID: [id number] Author: MUSTAPHA TELLO MA Service: ? Author Type: Personal Caregiver Type: Progress Notes Filed: 07/31/2024 15:12 Note Text: Patient verified by full name and date of . Jaz Sanders is here today for an IUI. LMP: 07/19/2024 Natural cycle IUI Timed With: Ovulation Predictor Kit , Date: 07/30/2024 Paper Baler offered: Patient declines Mustapha Tello MA July 31, 2024 3:12 [facility]04-14-2025 Telephone encounter Note* Telephone Encounter - Melodie Hernandez APRN.CNP - 07/30/2024 5:58 PM EDT patient's OPK today was dark but not positive Plan: test again tomorrow. 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, schedule IUI the same day Melodie Hernandez APRN.CNP July 30, 2024 6:00 PM [facility]04-14-2025 Miscellaneous Notes* Telephone Encounter - Melodie Hernandez APRN.CNP - 07/30/2024 5:58 PM EDT patient's OPK today was dark but not positive Plan: test again tomorrow. 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, schedule IUI the same day Melodie Hernandez APRN.CNP July 30, 2024 6:00 PM * Telephone Encounter - Manisha Ding - 07/30/2024 3:15 PM EDT N- ivf Pt has questions regarding IUI documented in this encounterGalion Hospital04-14-2025 Telephone encounter Note * Telephone Encounter - Manisha Ding - 07/30/2024 3:15 PM EDT N- ivf Pt has questions regarding IUI [facility]03-23-2025 NoteHNO ID: [id number] Author: NICHELLE GONZALEZ, ? Service: ? Author Type: Paramedic Supervisor Type: Progress Notes Filed: 07/19/2024 07:50 Note Text: IUI Cryobio #[id number] Washed frozen specimen Post: 31 m/ml, 77% Insem#: 10.8 millionUniversity Hospitals Health System03-23-2025 History of Present illness Narrative* Nichelle Gonzalez E - 07/08/2024 8:07 AM EDT IUI Cryobio #[id number] Washed frozen specimen Post: 31 m/ml, 77% Insem#: 10.8 million * Nichelle Gonzalez - 07/07/2024 10:10 AM EDT IUI specimen released to provider Nichelle Gonzalez July 07, 2024 10:10 AM documented in this encounterGalion Hospital03-22-2025 NoteHNO ID: [id number] Author: NICHELLE GONZALEZ, ? Service: ? Author Type: Paramedic Supervisor Type: Progress Notes Filed: 07/19/2024 07:50 Note Text: IUI specimen released to provider Nichelle Gonzalez July 07, 2024 10:10 [facility]03-22-2025 NoteHNO ID: [id number] Author: MIKEY TORRES MD Service: ? Author [...] Cycle Day: 14 Last menstrual period: 06/24/2024 [place] Protocol: UNIVERSAL PROTOCOL / SAFETY CHECKLIST Procedure [...] the primary surgeon/proceduralist with assistance. Stacy Banuelos, [facility]03-22-2025 Procedure note* Mikey Torres MD - 07/07/2024 [...] Cycle Day: 14 Last menstrual period: 06/24/2024 [place] Protocol: UNIVERSAL PROTOCOL / SAFETY CHECKLIST Procedure [...] primary surgeon/proceduralist with assistance. Stacy Banuelos MD [facility]03-22-2025 Procedure note* Mikey Torres MD - [...] Cycle Day: 14 Last menstrual period: 06/24/2024 [place] Protocol: UNIVERSAL PROTOCOL / SAFETY CHECKLIST Procedure [...] assistance. Stacy Banuelos MD documented in this encounterGalion Hospital03-22-2025 NoteHNO ID: [id number] Author: NICHELLE GONZALEZ, ? Service: ? Author Type: Paramedic Supervisor Type: Progress Notes Filed: 07/07/2024 09:41 Note Text: Thaw for IUI Nichelle GonzalezUniversity Hospitals Health System03-22-2025 History of Present illness Narrative* Nichelle Gonzalez - 07/07/2024 9:41 AM EDT Thaw for IUI Nichelle Gonzalez documented in this encounterGalion Hospital03-21-2025 Telephone encounter Note * Telephone Encounter [...] Isaacs PA-C July 06, 2024 3:26 PM [facility]03-21-2025 Miscellaneous Notes* Telephone Encounter - Becki [...] iui tomorrow. Pleasecall patient. documented in this encounterGalion Hospital03-21-2025 Telephone encounter Note * Telephone Encounter - Sivan Roberto - 07/06/2024 2:39 PM EDT Patient states she is calling back unsure about if she is okay to proceed with iui tomorrow. Pleasecall patient. [facility]03-21-2025 Telephone encounter Note* Telephone Encounter - Arminda Ward RN - 07/06/2024 11:17 AM EDT See other TE for 07/04 Arminda Ward RN July 06, 2024 11:17 AM [facility]03-21-2025 Miscellaneous Notes* Telephone Encounter - Arminda [...] to be removed first. documented in this encounterGal[facility] Telephone encounter Note * Telephone Encounter - Sivan Roberto - 07/05/2024 3:02 PM EDT On day 11 now, inquiring about if okay to proceed with iui with cervical polyp. Patient believes itwill be tomorrow or Tuesday for iui- inquiring if polyp needs to be removed first. [facility] Telephone encounter Note* Telephone Encounter - [...] Hernandez APRN.CNP July 04, 2024 7:30 PM [facility]03-19-[facility] Miscellaneous Notes* Telephone Encounter - Melodie [...] 04, 2024 7:30 PM documented in this encounterGalion Hospital03-19-2025 NoteHNO ID: [id number] Author: IGNACIO GUY MD Service: ? Author Type: Physician Type: Progress Notes Filed: 07/04/2024 16:27 Note Text: [facility] History of Present illness Narrative* Ignacio Guy MD - 07/04/2024 4:27 PM EDT 1 documented in this encounterGalion Hospital02-22-2025 NoteHNO ID: [id number] Author: IGNACIO GUY MD Service: ? Author [...] Cycle Day: 13 Last menstrual period: 05/28/2024 [place] Protocol: UNIVERSAL PROTOCOL / SAFETY CHECKLIST Procedure [...] was discussed with the patient or authorized specialty sales representative. The patient or authorized specialty sales representative has agreed to proceed with the sensitive examination. (Sensitive examination includes inspection and/or palpation of the breasts, pelvis, prostate and anorectal regions) Patient declined press tender incendiary grenade. Vidhi Sheldon MD IUI IUI Date: 06/09/24 [...] get pelivc scan here at [facility] if not with this IUI prior pt proceeding with another attmept at IUI. Ignacio Guy MD June 09, 2024 12:30 PM SIGNATURE: Vidhi Sheldon MD PATIENT NAME: Jaz Sanders DATE: June 09, 2024 TIME: 12:01 [facility]02-22-2025 Procedure note* Vidhi Sheldon MD - [...] Cycle Day: 13 Last menstrual period: 05/28/2024 [place] Protocol: UNIVERSAL PROTOCOL / SAFETY CHECKLIST Procedure [...] was discussed with the patient or authorized specialty sales representative. The patient or authorized specialty sales representative has agreed to proceed with the sensitive examination. (Sensitive examination includes inspection and/or palpation of the breasts, pelvis, prostate and anorectal regions) Patient declined press tender incendiary grenade. Vidhi Sheldon MD IUI IUI Date: 06/09/24 [...] get pelivc scan here at [facility] if not with this IUI prior pt proceeding with another attmept at IUI. Ignacio Guy MD June 09, 2024 12:30 PM SIGNATURE: Vidhi Sheldon MD PATIENT NAME: Jaz Sanders DATE: June 09, 2024 TIME: 12:01 PM [facility] Work Phone: 1(658) 485-978502-22-2025 Procedure note* Vidhi Sheldon MD - 06/09/2024 [...] Cycle Day: 13 Last menstrual period: 05/28/2024 [place] Protocol: UNIVERSAL PROTOCOL / SAFETY CHECKLIST Procedure [...] was discussed with the patient or authorized specialty sales representative. The patient or authorized specialty sales representative has agreed to proceed with the sensitive examination. (Sensitive examination includes inspection and/or palpation of the breasts, pelvis, prostate and anorectal regions) Patient declined press tender incendiary grenade. Vidhi Sheldon MD IUI IUI Date: 06/09/24 [...] get pelivc scan here at [facility] if not with this IUI prior pt proceeding with another attmept at IUI. Ignacio Guy MD June 09, 2024 12:30 PM SIGNATURE: Vidhi Sheldon MD PATIENT NAME: Jaz Sanders DATE: June 09, 2024 TIME: 12:01 PM documented in this encounterGalion Hospital02-22-2025 NoteHNO ID: [id number] Author: NICHELLE GONZALEZ, ? Service: ? Author Type: Paramedic Supervisor Type: Progress Notes Filed: 06/09/2024 12:30 Note Text: IUI Cryobio #: [id number] Washed frozen sample Post: 42 m/ml, 74% Insem#: 15.5 millionUniversity [facility]02-22-2025 History of Present illness Narrative* Nichelle Gonzalez - 06/09/2024 11:52 AM EST IUI Cryobio #: [id number] Washed frozen sample Post: 42 m/ml, 74% Insem#: 15.5 million * Nichelle Gonzalez - 06/09/2024 11:24 AM EST IUI specimen released to provider Nichelle Gonzalez June 09, 2024 11:24 AM documented in this encounterGalion Hospital02-22-2025 NoteHNO ID: [id number] Author: NICHELLE GONZALEZ, ? Service: ? Author Type: Paramedic Supervisor Type: Progress Notes Filed: 06/09/2024 11:48 Note Text: Thaw for IUI [facility] E [facility]lyUniversity [facility]-22-2025 History of Present illness Narrative* Nichelle Gonzalez - 06/09/2024 11:47 AM EST Thaw for IUI Ncihelle Colt Larrykimberly documented in this encounterGalion Hospital02-22-2025 NoteHNO ID: [id number] Author: NICHELLE GONZALEZ, ? Service: ? Author Type: Paramedic Supervisor Type: Progress Notes Filed: 06/09/2024 12:30 Note Text: IUI specimen released to provider Nichelle Gonzalez June 09, 2024 11:24 [facility]01-22-2025 Instructions* Patient Instructions* Melodie Hernandez APRN.SUPERVISOR POLE YARD - 05/09/2024 9:08 AM EST Images from [...] I sent your chart to the front sight attacher today. Treatment plan: Natural cycle/IUI x 3 cycles. Please schedule a follow up visit with Dr. Brooks velasco are not after 3 cycles. Sperm Ordering Instructions We need 1 vial per cycle. You will likely need 3-6 vials to establish a . You are welcome to buy more than one and store with the [facility]. Mailing address: Attention: Nichelle Gonzalez [address] [place] [address], [place] [address] Storage at the [facility] is available. Fees are yearly and only start once you are not actively trying. Please ask the financial team ([phone]) for current cost information. Donor Insemination Scheduling Instructions Please call during the first business day of your menstrual cycle to let the front sight attacher know you will be testing and doing [...] please call the [place] [address] Available every day, including weekends and holidays (except [place] and New Years.) Weekday IUI scheduling The day you get your LH surge, please call [phone] between 8:00am - 12:00pm to schedule your insemination for the next day. If you call after 12pm, we may not be able to schedule your appointment. IUI s are done by appointment only. You will make 2 appointments -an arrival time and a procedure time. [place]: [address] [place] [address], [address] [place] [address] Available every day, including weekends and holidays (except [place] and New Years.) Available for IUI using fresh and frozen samples. Check in location for sperm wash and IUI: [address] [facility]. The sperm wash takes 60-90 minutes. [...] to do another IUI: Call the front sight attacher to make sure you are financially cleared. Ask to speak to an SKYLAR to confirm your treatment plan. Important phone number: [phone] documented in this encounterGalion Hospital01-22-2025 NoteHNO ID: [id number] Author: MELODIE HERNANDEZ APRN.CNP Service: ? Author [...] visit. Either the patient or their legal specialty sales representative has been informed of the [...] negative donor is a carrier of: CFTR, [id number] Vial types available: IUI and ART Considerations [...] which included preparing to see the patient, dpwh-ld-rdqu patient care, completing clinical documentation, obtaining and/or [...] medical team. Standard se (more content not included)...[facility] History of Present illness Narrative* Melodie [...] visit. Either the patient or their legal specialty sales representative has been informed of the [...] them. No double whammies. Sperm bank/donor #: [employer] [id number] Blood type: A negative CMV Status: negative Genetic carrier considerations: patient Myriad negative donor is a carrier of: CFTR, [id number] Vial types available: IUI and ART Considerations [...] which included preparing to see the patient, bime-lt-zfyv patient care, completing clinical documentation, obtaining and/or [...] errors missed in proofreading. documented in this encounterGalion Hospital01-15-2025 History of Present illness Narrative* Nola Enriquez, PhD - 05/02/2024 2:00 PM EST Psychosocial Consultation for Third Alliance Party Reproduction Virtual visit with audio and visual equipment POS 10 No SI, Falls, Tobacco use On May 02, 2024, I met virtually with Jaz and Sravan Sanders. They were referred by Melodie Hernandez at [facility] for their required psychosocial consultation regarding third alliance party reproduction. Relevant History Jaz, 29, and Demetrius, 26, have been together for 8.5 years and for 6.5 years. 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 Demetrius also works at that [employer]. The couple has been trying to [...] Lynda's have already chosen a donor from [employer] in [place]. They chose this donor because heis CMV-, [...] alliance party reproductive option. documented in this [facility] Work Phone: 1(980) 968-624311-24-2024 NoteHNO ID: [id number] Author: MELODIE HERNANDEZ APRN.SUPERVISOR POLE YARD Service: ? Author Type: Nurse Practitioner Type: [...] visit. Either the patient or their legal specialty sales representative has been informed of the [...] Practice cycle Plan: Episode created.Reviewed checklist - Apple[employer]ie Capitalhart message sent Practice cycle: recommended OPKs to test for ovulation and timing of IUIs, patient to call with +OPK, confirm ovulation with progesterone level Follow up once checklist is complete to discuss test results and next steps. Melodie Hernandez APRN.SUPERVISOR POLE YARD March 11, 2024 10:42 PM I spent a total of 55 minutes on the date of the service which included preparing to see the patient, zzml-xq-swiy patient care, completing clinical documentation, obtaining and/or [...] be grammatical and typographical errors missed in proofreading.[facility] History of Present illness Narrative* Melodie Hernandez APRN.SUPERVISOR POLE YARD - 03/11/2024 10:42 PM EST Images from [...] visit. Either the patient or their legal specialty sales representative has been informed of the [...] Practice cycle Plan: Episode created.Reviewed checklist - Seahorse message sent Practice cycle: recommended OPKs to [...] which included preparing to see the patient, ajej-ln-izcc patient care, completing clinical documentation, obtaining and/or [...] errors missed in proofreading. documented in this encounterGalion Hospital11-22-2024 Instructions* Patient Instructions* Melodie Hernandez APRN.CNP [...] question, please call the office. ~Silvia MELY Hernandez.[facility] [phone] Donor Sperm Checklist Donor Sperm Labs Mandatory [...] Sravan must be present Amanda Gillespie MD ([place]) - [phone] Rani Sims (Filomena Hernandez) - [phone] - virtual visit Nola Destin, - virtual [...] to date). Please get scheduled with your cardiology rn or pcp if needed. Practice with Ovulation Predictor Kit (OPK) First day of full flow is cycle day #1. Start using on ovulation predictor kit on cycle day 10. Use your OPK once a day, in the morning with your second urine of the day. Send in a [employer]hart message when you get a positive OPK. [...] Once your checklist is complete, please call [phone] to get scheduled for a donor sperm follow up appointment. Sperm Bank Website [place] [facility] https://www.cryobank.com/ [facility]iology https://cryobio.com/ [employer] https://www.cryosinternational.com/ [place] [facility] https://RedPath Integrated Pathology.RecycleMatch/ [place] [facility] https://www.[place]-Wood.RecycleMatch/ [facility] [place] https://www.thespermbankFly Fishing Hunter.org/ [place] [facility] https://www.iPixCel.RecycleMatch/ [facility] https://www.Clearbridge Biomedics.RecycleMatch/ If you would like to start browsing [...] is needed. Test: CPT Code: Blood type 98339 HIV 80610 CMV IgG 74978 CMV IgM 65213 Syphilis 17421 Hepatitis B Surface Ag 71324 Hepatitis B Core Ab, IgG and IgM 56359 Hepatitis C Ab 21790 Rubella 88236 Varicella 70064 Chlamydia 17379 Gonorrhea 49544 For the above tests, reference the diagnosis code of Z11.9 documented in this encounterGalion Hospital11-12-2024 Plan of care note* JAMEL Plan [...] for three cycles. They will meet with PLUMBING MECHANIC to review the IUI checklist and sign consents. I spent a total of 45 minutes on the date of the service which included preparing to see the patient, lhzs-ad-qldg patient care, completing clinical documentation, counseling and educating the patient/family/caregiver, and ordering medications, tests, or procedures. Ignacio Guy MD [facility]11-12-[facility] Miscellaneous Notes* JAMEL Plan Note - [...] for three cycles. They will meet with PLUMBING MECHANIC to review the IUI checklist and sign consents. I spent a total of 45 minutes on the date of the service which included preparing to see the patient, olgh-qm-ezhq patient care, completing clinical documentation, counseling and educating the patient/family/caregiver, and ordering medications, tests, or procedures. Ignacio Guy MD documented in this encounterGalion Hospital11-12-2024 Instructions* Patient Instructions* Ignacio Guy MD - 02/28/2024 2:47 PM EST Dear Jaz Sanders Using [facility] requires some set up (outlined below). Requirements to use donor sperm at the [facility]: Teaching with JAMEL SKYLAR - please call [phone] to schedule a donor sperm teach with [...] to help with the donor selection process. Satiety Carrier Screen is the test ordered. Processing time takes 2-3 weeks. If your insurance doesn't cover it, the self-pay de oliveira is ~$250. Counselor You and your partner/spouse (if applicable) must see a counselor for a donor sperm assessment. Amanda Gillespie MD ([place]) - [phone] Rani Sims ([employer]) - [phone] Doris Lama ([place]) - [phone] Consent form - must be signed by [...] Required Tests Test: CPT Code: Blood type 39563 HIV 05682 CMV IgG 18760 CMV IgM 44137 Syphilis 39917 Hepatitis B Surface Ag 97290 Hepatitis B Core Ab, IgG and IgM 28571 Hepatitis C Ab 87886 Rubella 50684 Varicella 40134 Chlamydia 22254 Gonorrhea 78613 For the above tests, reference the diagnosis code of Z31.49. [place] [employer] Foresight Carrier Screen - [place] [employer] will check coverage for you. For this [...] your test results into consideration. Sperm [facility] [place] [facility] ([place]) [facility] [employer] ([facility] [place]) [place] [facility] *Do not order any sperm until your checklist is complete. We will review ordering instructions at your follow up visit. Next Steps: Call insurance to verify coverage for donor sperm panel. Schedule donor sperm teach with my nurse practitioner, Silvia Hernandez. Ignacio Guy MD [phone] documented in this encounterGalion Hospital11-12-2024 NoteHNO ID: [id number] Author: IGNACIO GUY MD Service: ? Author [...] OB History Obstetric History No data available REAL ESTATE TRANSACTION COORDINATOR HISTORY: Patient's last menstrual period was 02/18/2024. 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 They will meet with PLUMBING MECHANIC to review the IUI checklist and sign consents. I spent a total of 45 minutes on the date of the service which included preparing to see the patient, qtud-hj-fwxp patient care, completing clinical documentation, counseling and educating the patient/family/caregiver, and ordering medications, tests, or procedures. Ignacio Guy [facility]11-12-2024 History of Present illness Narrative* Ignacio Guy [...] OB History Obstetric History No data available REAL ESTATE TRANSACTION COORDINATOR HISTORY: Patient's last menstrual period was 02/18/2024. 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 They will meet with PLUMBING MECHANIC to review the IUI checklist and sign consents. I spent a total of 45 minutes on the date of the service which included preparing to see the patient, xqdp-dr-fyxv patient care, completing clinical documentation, counseling and educating the patient/family/caregiver, and ordering medications, tests, or procedures. Ignacio Guy MD documented in this encounterGalion Hospital11-11-2024 Evaluation note* Diagnosis Onset Date Resolution Status Admit Date Degenerative superior labral anterior-to -posterior (SLAP) tear of right matthias acuteNovember 2023 2:25pmLaxity of ligamentacuteNovember 2023 2:25pm Multidirectional instability of glenohumeral jointacuteNovember 2023 2:25pmOther instability, right shoulderacuteNovember 2023 2:25pmRight carpal tunnel syndromeacuteNovember 2023 2:25pmStatus post arthroscopy of right shoulderacuteNovember 2023 2:25pmStatus post surgerynoneactive February 27, 2024 2:25pmDegenerative superior labral bmjusetk-le-qtszygjdw (SLAP) tear of right shoacuteJanuary 2024 2:29pmLaxity of ligamentacute April 23, 2024 2:29pmMultidirectional instability of glenohumeral jointacute April 23, 2024 2:29pmOther instability, right shoulderacuteJanuary 2024 2:29pmRight carpal tunnel syndromeacuteJanuary 2024 2:29pmStatus post arthroscopy of right shoulderacuteJanuary 2024 2:29pm [facility] Work Phone: 1(365) 739-864411-11-2024 Evaluation note* Diagnosis Onset Date Resolution Status Admit Date Degenerative superior labral anterior-to -posterior (SLAP) tear of right matthias acuteNovember 2023 2:25pmLaxity of ligamentacuteNovember 2023 2:25pm Multidirectional instability of glenohumeral jointacuteNovember 2023 2:25pmOther instability, right shoulderacuteNovember 2023 2:25pmRight carpal tunnel syndromeacuteNovember 2023 2:25pmStatus post arthroscopy of right shoulderacuteNovember 2023 2:25pmStatus post surgerynoneactive February 27, 2024 2:25pmDegenerative superior labral bhfaqogn-wa-ddtwwgdle (SLAP) tear of right shoacuteJanuary 2024 2:29pmLaxity of ligamentacute April 23, 2024 2:29pmMultidirectional instability of glenohumeral jointacute April 23, 2024 2:29pmOther instability, right shoulderacuteJanuary 2024 2:29pmRight carpal tunnel syndromeacuteJanuary 2024 2:29pmStatus post arthroscopy of right shoulderacuteJanuary 2024 2:29pmAcute urticariaacute April 26, 2024 8:29amHypothyroidacuteJanuary 2024 8:29amOther chronic painacuteJanuary 2024 8:29am [facility] Work Phone: 1(985) 829-922011-04-2024 History of Present illness Narrative* Marsha Asif [...] nursing note reviewed. Exam conducted with a press tender incendiary grenade present. Vitals: Estimated body mass index is [...] behalf of: TRENT Engle documented in this encounterUniversity of Missouri Health [id number] Note [id number]#1.00[facility]09-03-2024 Evaluation note* Diagnosis Onset Date Resolution Status Admit Date Degenerative superior labral anterior-to -posterior (SLAP) tear of right matthias acuteSeptember 2023 10:11amLaxity of ligamentacuteSeptember 2023 10:11amMultidirectional instability of glenohumeral jointacuteSeptember 2023 10:11amOther instability, right shoulderacuteSeptember 2023 10:11am Right carpal tunnel syndromeacuteSeptember 2023 10:11amStatus post arthroscopy of right shoulderacuteSeptember 2023 10:11amStatus post surgery noneactiveSeptember 2023 10:11amDegenerative superior labral wawbbgyt-te-ribouudmf (SLAP) tear of right shoacuteOctober 2023 11:58am Laxity of ligamentacuteOctober 2023 11:58amMultidirectional instability of glenohumeral jointacuteOctober 2023 11:58amOther instability, right shoulderacuteOctober 2023 11:58amRight carpal tunnel syndromeacuteOctober 2023 11:58amStatus post arthroscopy of right shoulderacuteOctober 2023 11:58amStatus post surgerynoneactiveOctober 2023 11:58amDegenerative superior labral enwcozwe-fz-cxmalprna (SLAP) tear of right shoacuteNovember 2023 2:25pmLaxity of ligamentacuteNovember 2023 2:25pm Multidirectional instability of glenohumeral jointacuteNovember 2023 2:25pmOther instability, right shoulderacuteNovember 2023 2:25pmRight carpal tunnel syndromeacuteNovember 2023 2:25pmStatus post arthroscopy of right shoulderacuteNovember 2023 2:25pmStatus post surgerynoneactive November 2023 2:25pm [facility] Work Phone: 1(684) 461-543407-17-2024 NoteEducation Materials Orthopedics Musculoskeletal Pain Musculoskeletal pain [...] mouth or applied to the skin. Take juky-xao-nllbgjv and prescription medicines only as told by [...] provider. Document Revised: 08/07/2020 Document Reviewed: 07/16/2020 [employer] Patient Education ? 2022 Secpanel.[facility] [id number] Evaluation note* Encounter Date Diagnosis Assessment Notes Treatment Notes Treatment Clinical Notes Apr, Intertrigo (ICD-10 - L30.4) [facility] Other 01-30-2024 Evaluation note* Encounter Date Diagnosis [...] pain of right shoulder (ICD-10 - M25.511) [facility] Other 01-05-2024 Evaluation note* Encounter Date Diagnosis Assessment Notes Treatment Notes Treatment Clinical Notes Apr, Other iron deficiency anemia (IC D-10 - D50.8) [facility] Other 12-28-2023 Evaluation note* Encounter Date Diagnosis Assessment Notes Treatment Notes Treatment Clinical Notes Mar, Vitamin D deficiency (ICD-10 - E 55.9) [facility] Other 10-23-2023 Evaluation note* Encounter Date Diagnosis [...] agreement for this and referral was given. [facility] Other 09-21-2023 Evaluation note* Encounter Date Diagnosis Assessment Notes Treatment Notes Treatment Clinical Notes Dec, Other iron deficiency anemia (IC D-10 - D50.8) Dec,Low folic acid (ICD-10 - E53.8) [facility] Other 09-11-2023 Evaluation note* Encounter Date Diagnosis [...] andcontinue to do the exercises for strength. [facility] Other 07-06-2023 Evaluation note* Encounter Date Diagnosis Assessment Notes Treatment Notes Treatment Clinical Notes Oct, Iron deficiency (ICD-10 - E61.1) [facility] Other 06-26-2023 Evaluation note* Encounter Date Diagnosis [...] symptoms and causing pain down the arm. [facility] Other 06-15-2023 Evaluation note* Encounter Date Diagnosis [...] verbalizes understanding and agrees c tx plan. [facility] Other 05-10-2023 Evaluation note* Encounter Date Diagnosis [...] follow-up if no improvement. She verbalizes understnading. [facility] Other 05-05-2023 Evaluation note* Encounter Date Diagnosis Assessment Notes Treatment Notes Treatment Clinical Notes August, Acquired hypothyroidism (ICD-10 - E03.9) Discussed with pt symptoms and lab resutls. Discussed treatment and evaluation. Referral placed to Dr. Sinclair. August,Hashimoto's disease (ICD-10 - E06.3) [facility] Other 02-24-2023 Progress note Author Farhad [facility] June 11, 2022 1:16pmNote Date/TimeFebruary 2022 1:07pm[place] [address] Hospitalist Progress Note Signed Patient: Jaz Sanders MR#: [id number] : 1995 Acct:[id number] Age/Sex: 27 / F Adm Date: 3 Loc: 4N Room: 9E7841-9 Type: ADM IN Attending Dr: Farhad Gallego [...] days. Patient has an appointment with her SEARCH OPTIMIZATION ANALYST next week. Educated her to go to ED if she continues to have heavy bleeding with symptoms, she verbalized understanding. We will send patient home on iron supplements and docusate as needed for constipation Patient is being discharged today. Documented By: Farhad Gallego MD 06/11/22 1306 Signed By: <Electronically signed by Farhad Gallego MD> 06/11/22 1316 [facility] Work Phone: 1(291) 840-748702-23-2023 History and physical note Author Farhad Gallego [facility] June 10, 2022 6:28pmNote Date/TimeFebruary 2022 5:39pmSp[place] [address] Hospitalist H&P Signed Patient: Jaz Sanders MR#: [id number] : 1995 Acct:[id number] Age/Sex: 27 / F Adm Date: 3 Loc: Room: [address] [place] [address] Type: ADM INOo Attending Dr: Farhad Gallego MD Copies to: MD Amanda Correa, ORACLE OBIEE DEVELOPER, SUPERVISOR POLE YARD~ HPI DATE OF EXAMINATION: 06/10/22 CHIEF COMPLAINT: [...] % (Auto) 41.3 % (.) 06/10/22 14:51 Jefferson % (Auto) 6.8 % (.) 06/10/22 14:51 Eos % (Auto) 5.0 % (.) 06/10/22 14:51 Baso % (Auto) 1.8 % (.) 06/10/22 14:51 Nucleat RBC Rel Count 0.1 /100 WBC (0-0.5) 06/10/22 14:51 Neut # (Auto) 2.4 x10E3/uL (1.8-7.7) 06/10/22 14:51 Lymph # (Auto) 2.2 x10E3/uL (1.00-4.8) 06/10/22 14:51 Jefferson # (Auto) 0.4 x10E3/uL (0.0-0.8) 06/10/22 14:51 [...] pH 5.5 (5.0-9.0) 06/10/22 15:40 Ur Specific [place] 1.010 (1.001-1.030) 06/10/22 15:40 Urine Protein Negative [...] code Documented By: Farhad Gallego MD 06/10/22 9755 Signed By: <Electronically signed by Farhad Gallego MD> 06/10/[address] [facility] Work Phone: 1(882) 799-351901-04-2023 Evaluation note* Encounter Date Diagnosis Assessment Notes [...] for bleeding. Keep appointment with Dr. Elder. [facility] Other 12-13-2022 Evaluation note* Encounter Date Diagnosis Assessment Notes Treatment Notes Treatment Clinical Notes Mar, Arthritis of shoulder (ICD-10 - M19.019) [facility] Other 12-06-2022 Evaluation note* Encounter Date Diagnosis [...] she had offered her treatement for this. [facility] Other 11-30-2022 Evaluation note* Encounter Date Diagnosis Assessment Notes Treatment Notes Treatment Clinical Notes Feb, Gastroesophageal ref lux disease without esophagitis (ICD-10 - K21.9) [facility] Other 10-24-2022 Evaluation note* Encounter Date Diagnosis [...] to trial the ointment. Follow-up as needed. [facility] Other 05-11-2022 NoteEchocardiology Procedure Exam Date/Time Accession # Ordering Echo Transthoracic 08/25/2021 15:36 EDT [id number] Jay DAVEY, Samir Rivera CPT code 42483 Reason for Exam (Echo Transthoracic Complete) Bradycardia;Other [...] Mariam Salazar MD Transcribed by: kerry Technologist: [facility]04-21-2022 Note Echocardiology Procedure Exam Date/Time Accession # Ordering ECG Stress Exercise 08/06/2021 10:22 EDT [id number] Jay DAVEY, Samir Rivera CPT code 94971 Reason for Exam (ECG Stress Exercise) bradycardia;Other [...] Mariam Salazar MD Transcribed by: marixa Technologist: [facility]03-31-2022 Evaluation note* Encounter Date Diagnosis Assessment [...] school on two different occasions.Order faxed to [employer]. Jun,Gastroesophageal reflux disease without esophagitis (ICD-10 - [...] a [employer]. Jun,Former smoker (ICD-10 - Z87.891) [facility] vSocial Other Evaluation + Plan note Future Appointments Appointment Date:08/06/2021 09:30:00 AM Scheduled Provider: [facility] Appointment Type:CV Stress (FT) Appointment Date:08/06/2021 11:00:00 AM Scheduled Provider: Location:[facility] Appointment Type:CV Holter/Event (FT) Future Scheduled Tests Radiology* Echo Transthoracic Complete 07/24/21 * [facility]ments Appointment Date:08/11/2021 10:30:00 AM Scheduled Provider:Samir Thompson MD Location[facility] Appointment Type:Cardiology Follow Up (FT) [facility] Future Appointments Appointment Date:09/01/2021 02:30:00 PM Scheduled Provider:Samir Thompson MD Location[facility] Appointment Type:Cardiology Follow Up (FT) [facility] Future Appointments Appointment Date:2022 11:15:00 AM Scheduled Provider:Samir Thompson MD [facility] App[facility] Type:Cardiology Follow Up (FT) [facility] noteNo InformationN[facility] vSocial Other Evaluation noteNo assessment information available [facility] Work Phone: Evaluation note* Diagnosis Onset Date Resolution Status Anemia acuteAnxiety and depressionacuteBipolar disorderacuteIron deficiency anemiaacute [facility] Work Phone: evaluation note* Diagnosis Onset Date Resolution Status Abdominal pain acuteChillsacuteConstipationacuteFeveracuteH/O gastric sleeveacuteVomitingacute [facility] Work Phone: Evaluation note* Diagnosis Onset Date Resolution Status [id number] acuteLaxity of ligamentacuteMultidirectional instability of glenohumeral joint acuteNumbness of right handacuteOther instability, right shoulderacute [facility] Work Phone: Evaluation note* Diagnosis Onset Date Resolution Status [id number] acuteLaxity of ligamentacuteMultidirectional instability of glenohumeral joint acuteNumbness of right handacuteOther instability, right shoulderacute FKS-[id number]-[id number] of ligamentacuteMultidirectional instability of glenohumeral jointacuteNumbness of right handacuteOther instability, right shoulderacuteRight carpal tunnel syndromeacute [facility] Work Phone: Evaluation note* Diagnosis Onset Date Resolution Status [id number] acuteLaxity of ligamentacuteMultidirectional instability of glenohumeral joint acuteNumbness of right handacuteOther instability, right shoulderacute ZGB-VICA-[id number] of ligamentacuteMultidirectional instability of glenohumeral jointacuteNumbness of right handacuteOther instability, right shoulderacuteRight carpal tunnel xgdsesoyevasfQQK-MAHP-[id number] of ligamentacuteMultidirectional instability of glenohumeral jointacuteOther instability, right shoulderacuteRight carpal tunnel syndromeacute [facility] Work Phone: Evaluation note* Diagnosis Onset Date Resolution Status [id number] acuteLaxity of ligamentacuteMultidirectional instability of glenohumeral joint acuteNumbness of right handacuteOther instability, right shoulderacute UIZ-ATWO-[id number] of ligamentacuteMultidirectional instability of glenohumeral jointacuteNumbness of right handacuteOther instability, right shoulderacuteRight carpal tunnel vkfrdtftkwwgpJKA-EZPR-[id number] of ligamentacuteMultidirectional instability of glenohumeral jointacuteOther instability, right shoulderacuteRight carpal tunnel syndromeacute JBW-ZLUX-[id number] of ligamentacuteMultidirectional instability of glenohumeral jointacuteOther instability, right shoulderacuteRight carpal tunnel syndromeacuteStatus post arthroscopy of right shoulderacute [facility] Work Phone: Evaluation note* Diagnosis Onset Date Resolution Status [id number] acuteLaxity of ligamentacuteMultidirectional instability of glenohumeral joint acuteNumbness of right handacuteOther instability, right shoulderacuteRight carpal tunnel eosiigljctsplVAV-JGJQ-[id number] of ligamentacute Multidirectional instability of glenohumeral jointacuteOther instability, right shoulderacuteRight carpal tunnel pyoukoqvkmasxOLU-LJIR-[id number] of ligamentacuteMultidirectional instability of glenohumeral jointacuteOther instability, right shoulderacuteRight carpal tunnel syndromeacuteStatus post arthroscopy of right shoulderacuteStatus post surgerynoneactive KTG-VQDD-[id number] of ligamentacuteMultidirectional instability of glenohumeral jointacuteOther instability, right shoulderacuteRight carpal tunnel syndromeacuteStatus post arthroscopy of right shoulderacuteStatus post surgery noneactive [facility] Work Phone: Evaluation note* Diagnosis Well woman exam with routine gynecological exam Routine gynecological examination [facility] Diagnosis 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 documented in this encounter [facility] [place] [facility]* Diagnosis Reproductive mgmt, 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 Special screening examination for infectious diseases Screening examination for unspecified infectious disease Encounter for other genetic testing of female for procreative management documented in this encounter [facility] [place] [facility]* Diagnosis Bipolar 1 disorder (Multi)- Primary Infertility counseling documented in this encounter [facility] Work Phone: Evaluation note* Diagnosis Treatment plan provided- Primary [facility] [place] [facility]* Diagnosis Reproductive mgmt, 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 documented in this encounter [facility] [place] [facility]* Diagnosis Procreative management- Primary Unspecified procreative management documented in this encounter [facility] [place] [facility]* Diagnosis Female infertility- Primary Female infertility of unspecified origin [facility] Diagnosis Fertility testing- Primary Female infertility Female infertility of unspecified origin [facility] [place] [facility]* Diagnosis Encounter for fertility planning [Z31.89]- Primary Other specified procreative management [facility] [place] [facility]* Diagnosis Encounter for artificial insemination- Primary Artificial insemination documented [facility] this [facility] [place] [facility]* Diagnosis 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)- Primary [facility] [place] [facility]* Diagnosis 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)- Primary [facility] [place] [facility]* Diagnosis Abnormal thyroid function test- Primary Nonspecific abnormal results of thyroid function study 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 Vitamin D deficiency documented in this encounter [facility]* Diagnosis 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) [facility] [place] [facility]* Diagnosis Early stage of (HCC) state, incidental documented [facility] [place] [facility]* Diagnosis Amenorrhea Absence of menstruation 9 weeks gestation of Missed menses , unspecified gestational age Encounter for supervision of normal first in first trimester documented in this encounter [facility] Healthcare[facility] note* Diagnosis 13 weeks gestation of ([facility]) Second trimester ([facility]) state, incidental Thyroid disease Unspecified disorder of thyroid H/O gastric sleeve H/O iron deficiency anemia resulting from in vitro fertilization in first trimester ([facility]) documented in this encounter [facility] Healthcare[facility] note* Diagnosis Well woman exam with routine gynecological exam Routine gynecological examination Exposure to STD Second trimester ([facility]) state, incidental 18 weeks gestation of ([facility]) Need for maternal serum alpha-protein (MSAFP) screening ([facility]) Screening, , for anatomic survey ([facility]) Encounter for anatomic survey Thyroid disease Unspecified disorder of thyroid documented in this encounter [facility] HealthcareEvaluation note* Diagnosis Previous gastric bypass affecting , antepartum- Primary Hypothyroidism affecting in second trimester 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 ([facility]) Obesity affecting in second trimester, unspecified obesity [...] in second trimester [facility] Diagnosis 22 weeks gestation of (HHS-HCC) Second trimester (HHS-HCC) state, incidental Thyroid disease Unspecified disorder of thyroid H/O gastric sleeve H/O iron deficiency anemia Diabetes mellitus screening Screening for diabetes mellitus documented in this encounter [facility] HealthcareEvaluation note* Diagnosis Previous gastric bypass affecting , antepartum- Primary Hypothyroidism affecting in second trimester 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 (CMS-HCC) Obesity affecting in second trimester, unspecified obesity type documented in this [facility]* Diagnosis 26 weeks gestation of (HHS-HCC) Second trimester (HHS-HCC) state, incidental TSH (thyroid-stimulating hormone deficiency) Other specified acquired hypothyroidism documented in this encounter [facility] HealthcareEvaluation note* Diagnosis Third trimester (HHS-HCC) state, incidental 29 weeks gestation of (HHS-HCC) documented in this encounter [facility] HealthcareEvaluation note* Diagnosis Hypothyroidism affecting in second trimester- Primary headache in second trimester Previous gastric bypass affecting , antepartum 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 (CMS-HCC) [facility] Diagnosis Third trimester (HHS-HCC) state, incidental 31 weeks gestation of ([facility]) TSH (thyroid-stimulating hormone deficiency) Other specified acquired hypothyroidism H/O gastric sleeve documented in this encounter [facility] general Narrative - Reported* Type Description Date Surgical History cholecystectomy 2014 Surgical History gastric sleeve 2020 [facility] Other History general Narrative - Reported* Type Description Date Medical History Hypothyroidism Medical HistoryMNGMedical HistoryenuresisMedical Historyextreme obesityMedical HistoryGERD with esophagitisMedical HistoryheadacheMedical HistoryGoiter, nontoxic, multinodularMedical HistoryVitamin D deficiencySurgical History mddkoqbdtngkpat9144Iewofzmy Roqloocpevwtcqekpkmqyi7086Vjgfewbw Historygastric gmmydt6239Rhemllaqlsaeuni HistoryAnemia05/2022 [facility] Other Hospital course Narrative No data available for this section [facility] Discharge instructions No data available for this section [facility] Discharge instructions Additional Instructions POSTOPERATIVE INSTRUCTIONS FOR SHOULDER LABRAL REPAIR Romeo Santana DO Orthopedic Surgeon [facility] GENERAL INSTRUCTIONS: Use ice packs to [...] office immediately. Romeo Santana DO Orthopedic Surgeon [facility] Office: [address] [place], [place] [address] Office number: [phone] [facility] Work Phone: Hospital Discharge instructionsAmbulatory Orders* Referral to Allergy/Immunology Time Frame: 04/26/24, Location: None Selected [facility] Work Phone: Hospital Discharge instructions Additional Instructions We evaluated you for your vaginal bleeding in . Your ultrasound was normal, the baby has a good heart rate, measuring at 13 weeks and 1 day. Your cervix was closed. Follow-up closely with your SEARCH OPTIMIZATION ANALYST. Return to the emergency department if you develop any worsening or concerning symptoms.[facility] Work Phone: InstructionsNot on filedocumented in this encounter [facility] SystemInstructionsNot on filedocumented in this encounter [facility] 48domain SystemInstructions* Attachments The following attachments cannot be sent through Care Everywhere. * Preeclampsia (Tunisian) documented in this encounterProTu Closet Mi Closet SystemInstructionsNot on file documented in this encounterProMeditx 48domain SystemInstructionsNot on file documented in this encounterProUniversity [facility]als Par[facility] CenterGlobal New Media SystemReason for referral (narrative)No reason for referral information availableDayton Va Medical Center Work Phone: Reason for visit Narrative* Consult, Test, Treat (Routine) - ClosedSpecialtyDiagnoses / ProceduresReferred By ContactReferred To ContactREPRODUCTIVE ENDOCRINOLOGY & FERTILITY Diagnoses Encounter for procreative management, unspecified Encounter for other procreative management Procedures ARTIFIC INSEMINATION INTRAUTERIN THAWING CRYOPRESERVED SPERM/SEMEN EACH ALIQUOT Daniel Hanna APRN.SUPERVISOR [employer] [address] [place] [address] Phone: tel: fax: Reproductive Endocrinology Infertility [address] [place] [address] Phone: tel: Referral IDStatusReasonStart DateExpiration DateVisits RequestedVisits [id number] Financial Clearance Required - Self Pay Patient Cleared - True Self-Pay required payment collected Do Not Bill Insurance - SP patient [facility] for visit Narrative* Diagnostic Procedure Only (Routine) - AuthorizedSpecialtyDiagnoses / ProceduresReferred By ContactReferred To ContactFROEDTERT [facility] Diagnoses Fertility testing Procedures PELVIC US WHI US PELVIC NONOBSTETRIC REAL-TIME IMAGE COMPLETE Ignacio Guy MD [address] [place] [address] Phone: tel: fax: [facility] [address] [place] [address] Referral IDStatusReasonStart DateExpiration DateVisits RequestedVisits [id number] Auto-Generated Referral Patient Cleared - True Self-Pay required payment collected Do Not Bill Insurance - SP patient / [facility] for visit Narrative* Consult, Test, Treat (Routine) - ClosedSpecialtyDiagnoses / ProceduresReferred By ContactReferred To Contact REPRODUCTIVE ENDOCRINOLOGY & FERTILITY Diagnoses Encounter for procreative management, unspecified Encounter for other procreative management Procedures THAWING CRYOPRESERVED SPERM/SEMEN EACH ALIQUOT ARTIFIC INSEMINATION INTRAUTERIN Daniel Hanna APRN.SUPERVISOR [employer] [address] [address] [place] [address] Phone: tel: fax: Reproductive Endocrinology Infertility [address] [place] [address] Phone: tel: Referral IDStatusReasonStart DateExpiration DateVisits RequestedVisits [id number] Patient Cleared - True Self-Pay required payment collected Do Not Bill Insurance - SP patient / [facility] for visit Narrative* Financial Clearance (Routine) - ClosedSpecialtyDiagnoses / ProceduresReferred By ContactReferred To Contact FINANCE Diagnoses Collect for IUI-D washed sample Procedures THAWING CRYOPRESERVED SPERM/SEMEN EACH ALIQUOT ARTIFIC INSEMINATION INTRAUTERIN FINANCIAL CLEARANCE PHONE CALL Self Financial Clearance Phone Screening [place] [address] Referral IDStatusReasonStart DateExpiration DateVisits RequestedVisits [id number] Financial Clearance Required - Self Pay Patient Cleared - True Self-Pay required payment collected Do Not Bill Insurance - SP patient / [facility] for visit Narrative* Diagnostic Procedure Only (Routine) - ClosedSpecialtyDiagnoses / ProceduresReferred By ContactReferred To Contact [facility] Diagnoses 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) Procedures OBSTETRIC ULTRASOUND WHI US PREG UTERUS AFTER 1ST TRIMEST GESTATION Melodie Hernandez APRN.SUPERVISOR [employer]LE [employer]ARD [address] [place] [address] Phone: tel: fax: [place] [address] Referral IDStatusReasonStart DateExpiration DateVisits RequestedVisits [id number] Auto-Generated Referral / [facility] for visit Narrative* Diagnostic Procedure Only (Routine) - ClosedSpecialtyDiagnoses / ProceduresReferred By ContactReferred To Contact [facility] Diagnoses Early stage of (HCC) Procedures OBSTETRIC ULTRASOUND WHI US PREG UTERUS AFTER 1ST TRIMEST GESTATION Melodie Hernandez APRN.SUPERVISOR [employer] [address] [place] [address] Phone: tel: fax: [place] [address] Referral IDStatusReasonStart DateExpiration DateVisits RequestedVisits [id number] Auto-Generated Referral / [facility] Advance Directives TypeDate RecordedPatient RepresentativeExplanationACP-Advance DirectiveACP-Power [...] drive you home after your procedure. Your superintendent drivers must be 18 years of age or [...] questions, call the Pre-Admission Testing Unit at [phone]. Day of Surgery/Procedure As a patient at [facility] you can expect quality medical and nursing care that is centered on your individual needs. Our goal is to make your surgical experience as comfortableas possible . Directions to the Surgery Center [facility] is located at [address] [place] [address]. Please pull into the Emergency parking lot and stop at the money room supervisor dotson. We offer free money room supervisor service for all our surgery patients, if you choose not to have money room supervisor parking we have additional parking across the street.You will enter the facility following the [facility] sign. Please stop at the campus receptionist desk where you will be checked in by the staff. If you have any questions please call [phone]. Transportation after your procedure. You will need a friend or family member to drive you home after your procedure. Your superintendent drivers must be18 years of age or older [...] may shave your face or neck. ? Russell your teeth but do not swallow water. [...] or the day of surgery, please call [phone], or [phone] documented in this encounter* Instructions* Mukesh Montez, [...] 48 hours call the anesthesia department at [phone]. Will you need pain medication? The nerve [...] block please phone the Anesthesiology Department at [phone]. If the phone does not get answered please contact the hospital vessel operator at [phone] to page the commercial production editor anesthesiologist Discharge Instructions for Bariatric Surgery You had a Laparoscopic Sleeve Gastrectomy (72423) surgery to treat obesity. Recovery from this [...] scheduled appointment, please call the office at [phone]. Call Your Doctor If Any of the [...] AM EST CLINICAL PHARMACY NOTE: MEDS TO [facility] Select Patient?: No Total # of Prescriptions Filled: 3 The following medications were delivered to the patient: Oxycodone-acetaminophen 5/325 mg tab Cyclobenzaprine 10 mg tab Enoxaparin 60mg /0.6 ml syr Total # of Interventions Completed: 1 Time Spent (min): 60 Additional Documentation:called pillowcase cutter about the high co-pay on the enoxaparin [...] SHOULDER DI SCUSS SURGERY Reason for Visit [id number] Laxity of ligament Multidirectional instability of glenohumeral joint Numbness of right hand Other instability, right shoulder Chief Complaint OP SP RT SHOULDER DI SCUSS SURGERY R20.0Reason for PpwraEEF-UFAQ-[id number] Laxity of ligament Multidirectional instability of glenohumeral joint Numbness of right hand Other instability, right shoulder Chief Complaint OP SP RT SHOULDER DI SCUSS SURGERY R20.0 EMG RESULTSReason for OjeykZBA-BILX-[id number] Laxity of ligament Multidirectional instability of glenohumeral joint Numbness of right hand Other instability, right shoulder [id number] Laxity of ligament Multidirectional instability of glenohumeral joint Numbness of right hand Other instability, right shoulder Right carpal tunnel syndrome Chief Complaint OP SP RT SHOULDER DI SCUSS SURGERY R20.0 EMG RESULTS Shoulder painReason for GxygwINK-[id number] Laxity of ligament Multidirectional instability of glenohumeral joint Numbness of right hand Other instability, right shoulder [id number] Laxity of ligament Multidirectional instability of glenohumeral joint Numbness of right hand Other instability, right shoulder Right carpal tunnel syndrome Chief Complaint OP SP RT SHOULDER DI SCUSS SURGERY R20.0 EMG RESULTS Shoulder pain H & P RIGHT SHOULDER ARTHROSCOPY [id number] for [id number] Laxity of ligament Multidirectional instability of glenohumeral joint Numbness of right hand Other instability, right shoulder [id number] Laxity of ligament Multidirectional instability of glenohumeral joint Numbness of right hand Other instability, right shoulder Right carpal tunnel syndrome [id number] Laxity of ligament Multidirectional instability of glenohumeral joint Other instability, right shoulder Right carpal tunnel syndrome Chief Complaint OP SP RT SHOULDER DI SCUSS SURGERY R20.0 EMG RESULTS Shoulder pain H & P RIGHT SHOULDER ARTHROSCOPY 12-07-23 Shoulder pain Shoulder painReason for [id number] Laxity of ligament Multidirectional instability of glenohumeral joint Numbness of right hand Other instability, right shoulder [id number] Laxity of ligament Multidirectional instability of glenohumeral joint Numbness of right hand Other instability, right shoulder Right carpal tunnel syndrome [id number] Laxity of ligament Multidirectional instability of glenohumeral joint Other instability, right shoulder Right carpal tunnel syndrome Chief Complaint OP SP RT SHOULDER DI SCUSS SURGERY R20.0 EMG RESULTS Shoulder pain H & P RIGHT SHOULDER ARTHROSCOPY 12-07-23 Shoulder pain Shoulder pain 10-14 DAYS POST OPReason for [id number] Laxity of ligament Multidirectional instability of glenohumeral joint Numbness of right hand Other instability, right shoulder [id number] Laxity of ligament Multidirectional instability of glenohumeral joint Numbness of right hand Other instability, right shoulder Right carpal tunnel syndrome [id number] Laxity of ligament Multidirectional instability of glenohumeral joint Other instability, right shoulder Right carpal tunnel syndrome [id number] Laxity of ligament Multidirectional instability of glenohumeral joint Other instability, right shoulder Right carpal tunnel syndrome Status post arthroscopy of right shoulder Chief Complaint R20.0 EMG RESULTS Shoulder pain H & P RIGHT SHOULDER ARTHROSCOPY 12-07-23 Shoulder pain Shoulder pain 10-14 DAYS POST OP R20.0 4 WEEKSReason for [id number] Laxity of ligament Multidirectional instability of glenohumeral joint Numbness of right hand Other instability, right shoulder Right carpal tunnel syndrome [id number] Laxity of ligament Multidirectional instability of glenohumeral joint Other instability, right shoulder Right carpal tunnel syndrome [id number] Laxity of ligament Multidirectional instability of glenohumeral joint Other instability, right shoulder Right carpal tunnel syndrome Status post arthroscopy of right shoulder Status post surgery [id number] Laxity of ligament Multidirectional instability of glenohumeral [...] for Visit Admit Date 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 December 20, 2023 10:11am Laxity of ligament December 20, 2023 10:11am Multidirectional instability of glenohum eral joint December 20, 2023 10:11am Other instability, right shoulder Septem 2023 10:11am Right carpal tunnel syndrome December 192023 10:11am Status post arthroscopy of right shoulde r December 20, 2023 10:11am Status post surgery December 20, 2023 10:11am Degenerative superior labral xkykzyhb-rs-plveobbzw (SLAP) tear of right matthias January 17, 2024 11:58am Laxity of ligament January 17, 2024 11 :58am Multidirectional instability of glenohum eral joint January 17, 2024 11:58am Other instability, right shoulder Octobe 2023 11:58am Right carpal tunnel syndrome January 11:58am Status post arthroscopy of right shoulde r January 17, 2024 11:58am Status post surgery January 17, 2024 11 :58am Degenerative superior labral pdbohtlv-zx-njecnkauw (SLAP) tear of right matthias February 27, [...] for Visit Admit Date Degenerative superior labral xnvtnnrd-ov-okloipldi (SLAP) tear of right matthias February 27, 2024 2:25pm Laxity of ligament February 27, 2024 2:25pm Multidirectional instability of glenohum eral joint February 27, 2024 2:25pm Other instability, right shoulder Novemb er 2023 2:25pm Right carpal tunnel syndrome February 262023 2:25pm Status post arthroscopy of right shoulde r February 27, 2024 2:25pm Status post surgery February 27, 2024 2:25pm Degenerative superior labral bhsvfvhh-hi-qhqexvgkz (SLAP) tear of right matthias April 23, [...] for Visit Admit Date Degenerative superior labral jwxyqatx-oz-varwkdkri (SLAP) tear of right matthias February 27, 2024 2:25pm Laxity of ligament February 27, 2024 2:25pm Multidirectional instability of glenohum eral joint February 27, 2024 2:25pm Other instability, right shoulder Novemb er 2023 2:25pm Right carpal tunnel syndrome February 262023 2:25pm Status post arthroscopy of right shoulde r February 27, 2024 2:25pm Status post surgery February 27, 2024 2:25pm Degenerative superior labral pzrkpshb-nu-wvyymgkdu (SLAP) tear of right matthias April 23, [...] therapy exercises and steroid injection, MRI at [facility], Dr. 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 Rashard Olivera, [address] [facility] [address] [place] [address] [facility] ReasonCommentsGynecologic ExamReasonCommentsInfertilitySpecialtyDiagnoses / ProceduresReferred By ContactReferred To ContactREPRODUCTIVE ENDOCRINOLOGY & FERTILITY Diagnoses Female infertility, unspecified Procedures VV OFFICE/OP CONSLTJ NEW/EST PT MOD MDM 40 MINUTES Pcp, Ana Rosa, [employer]EL[employer] [facility] [address] [address] [place] [address] Referral IDStatusReasonStart DateExpiration DateVisits RequestedVisits [id number] Financial Clearance Required - Self Pay Patient Cleared - True Self-Pay required payment collected Do Not Bill Insurance - SP patient Financial Clearance Not Required [id number] sperm teachSpecialtyDiagnoses / ProceduresReferred By ContactReferred To ContactREPRODUCTIVE ENDOCRINOLOGY & FERTILITY Diagnoses Infertility counseling Procedures OFFICE/OUTPATIENT ESTABLISHED MOD MDM 30 MIN Melodie Hernandez, MELY.[facility] [address] [facility] [address] [place] [id number] [facility] [place] [address] [place] [address] Referral IDStatusReasonStart DateExpiration DateVisits RequestedVisits [id number] Financial Clearance Required - Self Pay Patient Cleared - True Self-Pay required payment collected Do Not Bill Insurance - SP patient /[id number] / ProceduresReferred By ContactReferred To ContactREPRODUCTIVE ENDOCRINOLOGY & FERTILITY Diagnoses Encounter for fertility testing Procedures OFFICE/OUTPATIENT ESTABLISHED LOW MDM 20 MIN [facility] [address] [place] [address] [facility] [address] [place] [address] Referral IDStatusReasonStart DateExpiration DateVisits RequestedVisits [id number] Financial Clearance Required - Self Pay Patient Cleared - True Self-Pay required payment collected Do Not Bill Insurance - SP patient [id number] PlanningReasonCommentsre iui this wknd/has cervical polyp questionReasonCommentsPatient [...] section and content) DATE CREATED AUTHOR 05/08/2020 [facility] DATE CREATED AUTHOR 'S ORGANIZ ATION 03/31/2021 [facility] DATE CREATED AUTHOR AUTHOR'S ORGANIZ ATION 09/04/2021 [facility] DATE CREATED AUTHOR AUTHOR'S ORGANIZ ATION 04/19/2024 [facility] DATE CREATED AUTHOR AUTHOR'S ORGANIZ ATION 05/05/2024 [facility] DATE CREATED AUTHOR AUTHOR'S ORGANIZ ATION 09/12/2024 [facility] DATE CREATED AUTHOR AUTHOR'S ORGANIZ ATION 10/05/2024 [facility] DATE CREATED AUTHOR AUTHOR'S ORGANIZ ATION 12/07/2024 [facility] DATE CREATED AUTHOR AUTHOR'S ORGANIZ ATION 12/07/2024 [facility] DATE CREATED AUTHOR AUTHOR'S ORGANIZ ATION 02/08/2025 [facility] DATE CREATED AUTHOR AUTHOR'S ORGANIZ ATION 02/21/2025 [facility] EPIC Care Teams (unrecognized sec tion and content) Team Status: Inactive Member Role Status Dates Mariam Appiah MD Primary Care Provider Active Amanda Ford APRN PLUMBING MECHANIC-CAttenrocky ProviderActive Team Status: Inactive Member Role Status Dates Amanda Ford APRN PLUMBING MECHANIC-C Primary Care Provider Active Dariel Howell ProviderActive Team Status: Inactive Member Role Status Dates Amanda Ford APRN [employer]UMBING MECHANIC-C Primary Care Provider Active Michelle Zhang ProviderActive Team Status: Active Member Role Status Dates Amanda Ford APRN PLUMBING MECHANIC-C Primary Care Provider Active Team Status: Inactive Member Role Status Dates Amanda Ford APRN PLUMBING MECHANIC-C Primary Care Provider, Attending Provider Active Team Status: Active Member Role Status Dates Amanda Ford APRN PLUMBING MECHANIC-C Primary Care Provider Active Dariel Howell ProviderActiveFarhad Gallego , MDAdmit Provider, Attending ProviderActive Team Status: Inactive Member Role Status Dates Amanda Ford APRN PLUMBING MECHANIC-C Primary Care Provider Active Dariel Howell ProviderActiveAnoDasilvaLashonda , MDAdmit Provider, Attending ProviderActive Team Status: Inactive Member Role Status Dates Amanda Ford APRN PLUMBING MECHANIC-C Primary Care Provider Active Silva Greco ProviderActive Team Status: Inactive Member Role Status Dates Provider Conversion Attending Provider Active St art: May 17, 2023 End: May 17, 2023 Team Status: Inactive Member Role Status Dates Amanda Ford APRN PLUMBING MECHANIC-C Primary Care Provider, Attending Provider Active Start: June 08, 2023 End: June 08, 2023 Team Status: Active Member Role Status Dates Amanda Ford APRN PLUMBING MECHANIC-C Primary Care Provider, Attending Provider Active Start: September 15, 2023 Team Status: Inactive Member Role Status Dates Amanda Ford APRN PLUMBING MECH[employer]IC-C Primary Care Provider Active Start: October 13, 2023 End: October 13, 2023Romeo Santana DOAttending ProviderActiveStart: October 13, 2023 End: October 13, 2023 Team Status: Inactive Member Role Status Dates Amanda Ford APRN PLUMBING MECHANIC-C Primary Care Provider Active Start: October 26, 2023 End: October 26, 2023Romeo Santana DOAttending ProviderActiveStart: October 26, 2023 End: October 26, 2023 Team Status: Inactive Member Role Status Dates Amanda Ford APRN PLUMBING MECHANIC-C Primary Care Provider Active Start: November 01, 2023 End: November 01, 2023Romeo Santana DOAttending ProviderActiveStart: November 01, 2023 End: November 01, 2023 Team Status: Inactive Member Role Status Dates Amanda Ford APRN PLUMBING MECHANIC-C Primary Care Provider Active Start: November 28, 2023 End: November 28, 2023Romeo Santana DOAttending ProviderActiveStart: November 28, 2023 End: November 28, 2023 Team Status: Inactive Member Role Status Dates Amanda Ford APRN PLUMBING MECHANIC-C Primary Care Provider Active Start: December 01, 2023 End: December 01, 2023Romeo Santana DOAttending ProviderActiveStart: December 01, 2023 End: December 01, 2023 Team Status: Inactive Member Role Status Dates Amanda Ford APRN PLUMBING MECHANIC-C Primary Care Provider Active Start: December 07, 2023 End: December 07, 2023Romeo Santana DOAttending ProviderActiveStart: December 07, 2023 End: December 07, 2023 Team Status: Active Member Role Status Dates Amanda Ford APRN PLUMBING MECHANIC-C Primary Care Provider Active Start: December 07, 2023 Romeo Santana DOAttending Provider, Other ProviderActiveStart: December 07, 2023 Team Status: Inactive Member Role Status Dates Amanda Ford APRN PLUMBING MECHANIC-C Primary Care Provider Active Start: December 192023 End: December 20, 2023Romeo Santana DOAttending ProviderActiveStart: December 20, 2023 End: December 20, 2023 Team Status: Active Member Role Status Dates Amanda Ford APRN PLUMBING MECHANIC-C Primary Care Provider Active Start: December 182023 Romeo Santana , DOOther ProviderActiveStart: January 10, 2024 Daniel Hampton MDAttending ProviderActiveStart: January 10, 2024 Team Status: Inactive Member Role Status Dates Amanda Ford APRN PLUMBING MECHANIC-C Primary Care Provider Active Start: January 17, 2024 End: January 17, 2024Romeo Santana DOAttending ProviderActiveStart: January 17, 2024 End: January 17, 2024Team MemberRelationshipSpecialtyStart DateEnd Date Amanda Ford NP [address] [place] [address] [facility]01/17/23Team MemberRelationshipSpecialtyStart DateEnd Date Amanda Ford NP [address] [place] [address] [facility]01/17/23 Team Status: Inactive Member Role Status Dates Amanda Ford APRN PLUMBING MECHANIC-C Primary Care Provider Active Start: February 262023 End: February 27, 2024Romeo Santana DOAttending ProviderActiveStart: February 27, 2024 End: February 27, 2024Team MemberRelationshipSpecialtyStart DateEnd Date Amanda Ford NP PCP - [facility]01/17/23 Team Status: Active Member Role Status Dates Amanda Ford APRN PLUMBING MECHANIC-C Primary Care Provider Active Start: February Kenny Gallegos ProviderActiveStart: February 20, 2024 Team Status: Inactive Member Role Status Dates Amanda Ford APRN PLUMBING MECHANIC-C Primary Care Provider Active Start: April 23, 2024 End: April 23, 2024Kenny Gary ProviderActiveStart: April 23, 2024 End: April 23, 2024 Team Status: Inactive Member Role Status Dates Amanda Ford APRN PLUMBING MECHANIC-C Primary Care Provider, Attending Provider Active Start: April 26, 2024 End: April 26, 2024Team MemberRelationshipSpecialtyStart DateEnd Date Amanda Ford NP [address] [place] [address] [facility] Brugxoeu03/2/23Team MemberRelationshipSpecialtyStart DateEnd Date Amanda Ford NP [address] [place] [address] [facility] - [facility] Ahcjjvpk92/2/23Team MemberRelationshipSpecialtyStart DateEnd Date Amanda Ford NP [address] [place] [address] [facility] - [facility] Frfihisv26/2/23Team MemberRelationshipSpecialtyStart DateEnd Date Amanda Ford NP [address] [place] [address] [facility] Rnsxusqr84/2/23 Team Status: Inactive Member Role Status Dates Amanda Ford APRN PLUMBING MECHANIC-C Primary Care Provider Active Start: October 18, 2024 End: October 18lexjerri Arriaza , DOEmergency ProviderActiveStart: October 18, 2024 End: October 18, 2024Team MemberRelationshipSpecialtyStart DateEnd Date Amanda Ford NP [address] [place] [address] PCP - GeneralFamily Qqytlitw04/2/23Team MemberRelationshipSpecialtyStart DateEnd Date No Pcp, [place] [address] PCP - GeneralFamily Medicine05/20/20Team MemberRelationshipSpecialtyStart DateEnd Date No Pcp, [place] [address] PCP - GeneralFamily Medicine05/20/20Team MemberRelationshipSpecialtyStart DateEnd Date Amanda Ford NP [address] [place] [address] PCP - GeneralFamily Hodtdgrw29/2/23Team MemberRelationshipSpecialtyStart DateEnd Date Amanda Ford NP [address] [place] [address] PCP - GeneralFamily Sdwbwknm96/2/23Team MemberRelationshipSpecialtyStart DateEnd Date Amanda Ford NP [address] [place] [address] PCP - GeneralFamily Eunoksmm90/2/23 Team Status: Active Member Role Status Dates Amanda Ford APRN PLUMBING MECHANIC-C Primary Care Provider Active Start: November 17, 2024 Chris Dickerson , DOAttending ProviderActiveStart: November 17, 2024 Team Status: Active Member Role Status Dates Amanda Ford APRN PLUMBING MECHANIC-C Primary Care Provider Active Start: November 20, 2024 Les Juan , DOAttending ProviderActiveStart: November 20, 2024 Team Status: Active Member Role Status Dates Amanda Ford APRN PLUMBING MECHANIC-C Primary Care Provider Active Start: November 30, [...] Member Role Status Dates Amanda Ford APRN PLUMBING MECHANIC-C Primary Care Provider Active Start: December 02, 2024 End: December 03, 2024Eduardo Cruz , DOAttending ProviderActiveStart: December 02, 2024 End: December 03, 2024Team MemberRelationshipSpecialtyStart DateEnd Date No Pcp, [place] [address] PCP - GeneralFamily Medicine05/20/20Team MemberRelationshipSpecialtyStart DateEnd Date No Pcp, [place] [address] PCP - GeneralFamily Medicine05/20/20Team MemberRelationshipSpecialtyStart DateEnd Date Amanda Ford NP [address] [place] [address] PCP - GeneralFamily Yfmdsewp00/2/23Team MemberRelationshipSpecialtyStart DateEnd Date No Pcp, [place] [address] PCP - GeneralFamily Medicine05/20/20Team MemberRelationshipSpecialtyStart DateEnd Date No Pcp, [place] [address] PCP - GeneralFamily Medicine05/20/20Team MemberRelationshipSpecialtyStart DateEnd Date Amanda Ford NP [address] [place] [address] PCP - GeneralFamily Xtbhednb28/2/23Team MemberRelationshipSpecialtyStart DateEnd Date Amanda Ford NP [address] [place] [address] PCP - GeneralFamily Gywdumlz29/2/23Team MemberRelationshipSpecialtyStart DateEnd Date Amanda Ford NP [address] [place] [address] PCP - Generalmily Fgwugeix53/2/23Team MemberRelationshipSpecialtyStart DateEnd Date MerylsarahAmanda de la fuente NP [address] [place] [address] PCP - GeneralFamily Nkiydbzt93/2/23 Goals (unrecognized section and content) Type Treatment [...] or prosecute any alcohol or drug abuse patient.[facility] HospitalIn the event this information is protected by the Federal Confidentiality of Alcohol and Drug Abuse Patient Records regulations: The Federal rules restrict any use of the information to criminally investigate or prosecute any alcohol or drug abuse patient.[facility] HospitalIn the event this information is protected by the Federal Confidentiality of Alcohol and Drug Abuse Patient Records regulations: The Federal rules restrict any use of the information to criminally investigate or prosecute any alcohol or drug abuse patient.[facility] HospitalIn the event this information is protected by the Federal Confidentiality of Alcohol and Drug Abuse Patient Records regulations: The Federal rules restrict any use of the information to criminally investigate or prosecute any alcohol or drug abuse patient.[facility] HospitalIn the event this information is protected by the Federal Confidentiality of Alcohol and Drug Abuse Patient Records regulations: The Federal rules restrict any use of the information to criminally investigate or prosecute any alcohol or drug abuse patient.[facility] HospitalIn the event this information is protected by the Federal Confidentiality of Alcohol and Drug Abuse Patient Records regulations: The Federal rules restrict any use of the information to criminally investigate or prosecute any alcohol or drug abuse patient.[facility] HospitalIn the event this information is protected by the Federal Confidentiality of Alcohol and Drug Abuse Patient Records regulations: The Federal rules restrict any use of the information to criminally investigate or prosecute any alcohol or drug abuse patient.[facility] HospitalIn the event this information is protected by the Federal Confidentiality of Alcohol and Drug Abuse Patient Records regulations: The Federal rules restrict any use of the information to criminally investigate or prosecute any alcohol or drug abuse patient.[facility] HospitalIn the event this information is protected by the Federal Confidentiality of Alcohol and Drug Abuse Patient Records regulations: The Federal rules restrict any use of the information to criminally investigate or prosecute any alcohol or drug abuse patient.[facility] HospitalIn the event this information is protected by the Federal Confidentiality of Alcohol and Drug Abuse Patient Records regulations: The Federal rules restrict any use of the information to criminally investigate or prosecute any alcohol or drug abuse patient.[facility] HospitalIn the event this information is protected by the Federal Confidentiality of Alcohol and Drug Abuse Patient Records regulations: The Federal rules restrict any use of the information to criminally investigate or prosecute any alcohol or drug abuse patient.[facility] HospitalIn the event this information is protected by the Federal Confidentiality of Alcohol and Drug Abuse Patient Records regulations: The Federal rules restrict any use of the information to criminally investigate or prosecute any alcohol or drug abuse patient.[facility] HospitalIn the event this information is protected by the Federal Confidentiality of Alcohol and Drug Abuse Patient Records regulations: The Federal rules restrict any use of the information to criminally investigate or prosecute any alcohol or drug abuse patient.[facility] HospitalIn the event this information is protected by the Federal Confidentiality of Alcohol and Drug Abuse Patient Records regulations: The Federal rules restrict any use of the information to criminally investigate or prosecute any alcohol or drug abuse patient.[facility] HospitalIn the event this information is protected by the Federal Confidentiality of Alcohol and Drug Abuse Patient Records regulations: The Federal rules restrict any use of the information to criminally investigate or prosecute any alcohol or drug abuse patient.[facility] HospitalIn the event this information is protected by the Federal Confidentiality of Alcohol and Drug Abuse Patient Records regulations: The Federal rules restrict any use of the information to criminally investigate or prosecute any alcohol or drug abuse patient.[facility] HospitalIn the event this information is protected by the Federal Confidentiality of Alcohol and Drug Abuse Patient Records regulations: The Federal rules restrict any use of the information to criminally investigate or prosecute any alcohol or drug abuse patient.[facility] HospitalIn the event this information is protected by the Federal Confidentiality of Alcohol and Drug Abuse Patient Records regulations: The Federal rules restrict any use of the information to criminally investigate or prosecute any alcohol or drug abuse patient.[facility] HospitalIn the event this information is protected by the Federal Confidentiality of Alcohol and Drug Abuse Patient Records regulations: The Federal rules restrict any use of the information to criminally investigate or prosecute any alcohol or drug abuse patient.[facility] HospitalIn the event this information is protected by the Federal Confidentiality of Alcohol and Drug Abuse Patient Records regulations: The Federal rules restrict any use of the information to criminally investigate or prosecute any alcohol or drug abuse patient.[facility] HospitalIn the event this information is protected by the Federal Confidentiality of Alcohol and Drug Abuse Patient Records regulations: The Federal rules restrict any use of the information to criminally investigate or prosecute any alcohol or drug abuse patient.[facility] HospitalIn the event this information is protected by the Federal Confidentiality of Alcohol and Drug Abuse Patient Records regulations: The Federal rules restrict any use of the information to criminally investigate or prosecute any alcohol or drug abuse patient.[facility] HospitalIn the event this information is protected by the Federal Confidentiality of Alcohol and Drug Abuse Patient Records regulations: The Federal rules restrict any use of the information to criminally investigate or prosecute any alcohol or drug abuse patient.[facility]In the event this information is protected by the Federal Confidentiality of Alcohol and Drug Abuse Patient Records regulations: The Federal rules restrict any use of the information to criminally investigate or prosecute any alcohol or drug abuse patient.[facility] HospitalIn the event this information is protected by the Federal Confidentiality of Alcohol and Drug Abuse Patient Records regulations: The Federal rules restrict any use of the information to criminally investigate or prosecute any alcohol or drug abuse patient.[facility] HospitalIn the event this information is protected by the Federal Confidentiality of Alcohol and Drug Abuse Patient Records regulations: The Federal rules restrict any use of the information to criminally investigate or prosecute any alcohol or drug abuse patient.[facility] HospitalIn the event this information is protected by the Federal Confidentiality of Alcohol and Drug Abuse Patient Records regulations: The Federal rules restrict any use of the information to criminally investigate or prosecute any alcohol or drug abuse patient.[facility] FOR RECORDS PERTAINING TO PATIENTS WHO [...] BE BASED ON THE PRIMARY CLINICAL RECORDS. [facility]. provides no warranty or guarantee of the accuracy or completeness of information in this document.
[2025-03-07 14:18] VITALS: BP 114/55; PULSE 67
== END 2025-03-07 14:50 | disposition home or self-care (01) ==
LOC: FBCO 14:05 → FBC 14:08
PROVIDERS: PCP Nurse Practitioner Family; Visit Provider Obstetrics & Gynecology
DX: O99.283 Endocrine, nutritional and metabolic diseases complicating pregnancy, third trimester (principal)
CPT/HCPCS: 59025

== ENCOUNTER 2025-03-18 13:59 | Outpatient (OUT) | payer MEDICAID, SELFPAY ==
--- OUTSIDE RECORDS SUMMARY | 2025-03-05 14:20 | XMS_ITS | Encounter Summary ---
Author Organization [facility] Address [address] [place] [address] Care Team Providers Care Bullet Slugs Inspector Name Role Phone Amanda Ford BREAST SPLITTER Primary Care Provider Reason for Visit * ReasonCommentsRoutine Visit Encounter Details DateTypeDepartmentCare Team (Latest Contact Info)Lnlgyypaysv77/18/2025 2:20 PM ESTRoutine [facility] [address] [place] [address] Jojo Ames PA [address] [facility] [facility] [address] [place], [facility] Third trimester ([facility]); 33 weeks gestation of ([facility]); Thyroid disease; H/O gastric sleeve Social History Tobacco UseTypesPacks/DayYears UsedDateSmoking Tobacco: FormerCigarettes0.53 Quit: 05/24/2024Smokeless Tobacco: Never Tobacco Cessation:Counseling Given: Not Answered Alcohol UseStandard Drinks/WeekCommentsNot Currently0 (1 standard drink = 0.6 oz pure alcohol)caffeine: 1-2 cups per day teaPHQ-2AnswerDate RecordedPatient Health Questionnaire-2 Yvedt924Estimated Date of Delivery GcnzxbkhPqu29/06/2026Based on Est. Date of ConceptionSex and Gender Information ValueDate RecordedSex Assigned at CezqpZsivuu90/04/2023 8:10 PM EDTLegal Sex Stvsyb2901/17/2023 9:50 PM EDTGender PlfaaqnaFkzvsm38/04/2023 8:10 PM EDTSexual OrientationNot on fileTravel HistoryTravel StartTravel SnaRsfjsxp52/22/2025 03/16/2025documented as of this encounter Last Filed Vital Signs Vital SignReadingTime TakenCommentsBlood Yzoqjhwf716/6003/05/2025 2:41 PM EST Pulse--Temperature--Respiratory Rate--Oxygen Saturation--Inhaled Oxygen Concentration--Jxqcsf104 kg (296 lb)03/05/2025 2:41 PM ESTHeight--Body Mass Index41.28008/22/2024 10:04 AM EDTdocumented in this encounter Progress Notes * MELVI Engle - 03/05/2025 2:20 PM EST Reason for Appointment: Patient ID: Jaz Howell is a 30 y.o. female who presents for Routine Visit [...] deficiency Social History Tobacco Use Smoking status: Former Current packs/day: 0.00 Average packs/day: 0.5 packs/day for 3.0 years (1.5 ttl pk-yrs) Types: Cigarettes Quit date: 05/24/2024 Years since quittin.7 Smokeless tobacco: Never Substance Use Topics Alcohol [...] reviewed. Vitals: Estimated body mass index is 41.28 kg/m?? as calculated from the following: Height as of 5/7/25: 5' 11 . Weight as of this encounter: 296 lb. BP: 112/60 No LMP recorded. Patient is . ASSESSMENT & PLAN ICD-10-CM 1. Third trimester ([facility]) Z34.93 2. 33 weeks gestation of ([facility]) Z3A.33 POCT urinalysis dipstick manually resulted Assessment/Plan Return OB: Patient presents today for a routine obstetrics appointment. Patient is currently 33w0d . Patient states she is doing well [...] week for routine OB appointment. Documented by Diamond Arellano CST on behalf of: MELVI Engle documented in this encounter Miscellaneous Notes * Addendum Note - Roxanne England LPN - 03/05/2025 2:20 PM ESTAddended by: ROXANNE ENGLAND on: 03/06/2025 08:10 AM Modules accepted: Orders documented in this encounter Plan of Treatment DateTypeDepartmentCare Team (Latest Contact Info)Lrvblxecbve97/02/2025 11:00 AM ESTRoutine [facility] [address] [place] [address] Les Martinez DO [address] [facility] [address] [place] [address] 08/21/2025 9:30 AM EDTOffice Visit [facility] [address] [place] [address] Darleen Sinclair MD [address] [place] [address] NameTypePriorityAssociated DiagnosesDate/TimeUS OB follow up transabdominal approachImagingRoutine Thyroid disease H/O gastric sleeve 03/05/2025 4:33 PM ESTNameTypePriorityAssociated DiagnosesOrder ScheduleUS OB follow up transabdominal approachImagingRoutine Third trimester ([facility]) 33 weeks gestation of ([facility]) Thyroid disease H/O gastric sleeve Expected: 03/06/2025, Expires: 07/04/2025documented as of this encounter Goals GoalPatient Goal TypeAssociated ProblemsRecent ProgressPatient-Stated?Author Reminders Care PlanOB RemindersNoOpen Scheduling, Backgrounddocumented as of this encounter Procedures Procedure NamePriorityDate/TimeAssociated DiagnosisCommentsPOCT URINALYSIS ADXJDICMLftxvte40/18/2025 2:41 PM EST 33 weeks gestation of ([facility]) documented in this encounter Results * (ABNORMAL) POCT urinalysis dipstick manually resulted (03/05/2025 2:41 PM EST) ComponentValueRef RangeTest MethodAnalysis TimePerformed AtPathologist SignatureColor, UAYellowClarity, UAClearGlucose, UANegativeNegative - 2000(110) ++++ mg/dLBilirubin, UANegativeNegative - 4(70) +++ mg/dLKetones, UA PositiveNegative - 160(16) ++++ mg/dLSpec Grav, UA1.0101 - 1.03Blood, UA NegativeNegative - 50 Yehuda/mcLpH, UA6.55 - 9Protein, UANegativeNegative - 2000(20) ++++ mg/dLUrobilinogen, UA1.00.2 - 12 mg/dLLeukocytes, UATrace Negative - 500+++ Kourtney/mcLNitrite, UANegativeNegative - PositiveSpecimen (Source)Anatomical Location / LateralityCollection Method / VolumeCollection TimeReceived UfaeBwrcg60/18/2025 2:41 PM EST Narrative Authorizing ProviderResult TypeResult StatusSpringfield Hospital Medical CenterOINT OF CARE TEST ENTER/EDIT ORDERABLESFinal Result documented in this encounter Visit Diagnoses Diagnosis Third trimester ([facility]) state, incidental 33 weeks gestation of ([facility]) Thyroid disease Unspecified disorder of thyroid H/O gastric sleeve documented in this encounter Additional Health Concerns Active ProblemsNoted DateDiagnosed DateOB Hubvzyhpl88/07/2025 documented as of this encounter Care Teams Team MemberRelationshipSpecialtyStart DateEnd Date Amanda Ford NP [address] [place] [address] PCP - GeneralFamily Qxyvtlyt42/2/23documented as of this encounter
--- NOTE | 2025-03-18 | US_ITS ---
[place] [id number] Patient Name: GUZMAN DEL CID MRN: [id number] date: 1995 Sex: F Assigned Patient Location: US Current Patient Location: Accession/Order Number: [id number] Exam Date: 03/18/2025 14:03 Report Date: 03/18/2025 16:09 At the request of: BASIM BIRMINGHAM DO Procedure: US OB BPP w non-stress Biophysical profile. Reason for exam: Thyroid stimulating hormone deficiency COMPARISON: 03/04/2025 TECHNIQUE: Transabdominal imaging of the gravid uterus was obtained. FINDINGS: The rn family reports a BPP of 8 out of 8. STARR is normal at 18 cm. heart rate 141 bpm. US/US OB BPP w non-stress IMPRESSION: BPP 8 out of 8. Impression dictated by: Sravan Dickinson Jr., DRenaeORenae 03/18/2025 4:09 PM Dictation [facility] Future Electronically authenticated by: [id number] Y Date: 03/18/2025 16:09
--- OUTSIDE RECORDS SUMMARY | 2025-03-18 14:02 | XMS_ITS | Clinical Summary ---
Author Organization [facility] Address [address] [place] [address] Care Team Providers Care Machine Shop Apprentice Name Role Phone Amanda Ford INTELLIGENCE SENIOR SERGEANT Primary Care Provider Allergies Active AllergyReactionsCriticalityNoted SoijMuzvkfcxJoyrtpYxdwwpmDjto20/02/2023 Patient had gastric bypass surgery in April [...] the morning. Take before meals. 90 tablet //6Active sertraline (Zoloft) 25 MG tablet Take 25 mg by mouth 1 (one) time each day at the same time5Active ProFe 391.3 (180 Fe) MG capsule Indications:Other iron deficiency anemiaTAKE 1 CAPSULE BY MOUTH TWICE DAILY IN THE MORNING AND BEFORE BEDTIME 60 capsule 5Active Active Problems ProblemNoted DateDiagnosed DateThyroid rgwiaop57/19/2025H/O gastric sleeve 3 weeks gestation of ([facility])03/06/2025Third trimester ([facility])03/06/20251958Fgfzzppqece87/12/2024Estimated Date of LqgzckulGdttmqgwDze27/06/2026Based on Est. Date of Conception Encounters DateTypeDepartmentCare NpcyKkbhkypdvbk96/25/2025Patient Outreach [facility] [address] [place] [place] [address] Jojo Be LPN 03/12/20257089Ebsfhw20/18/2025 2:20 PM ESTRoutine [facility] [address] [place] [address] Jojo Ames PA Third trimester ([facility]); 33 weeks gestation of ([facility]); Thyroid disease; H/O gastric ktzlhh8203/05/2025Telephone [facility] [address] [place] [address] Marsha Asif MA 03/05/2025External Result Encounter [facility] [address] [place] [address] Basim Martinez, DO 03/05/20255052Ankgqo19/18/2025amboo flowsheet [facility] [address] [place] [address] Jojo Ames PA 2025linisync Result Encounter [facility] External Department Unsolicited Basim Martinez, DO 03/04/20257930Tazppw44/11/2025linisync Result Encounter [facility] External Department Unsolicited Basim Martinez, DO 02/19/2025 1:00 PM ESTRoutine [facility] [address] [place] [address] Basim Martinez, DO Third trimester ([facility]); 31 weeks gestation of ([facility]); TSH (thyroid-stimulating hormone deficiency); H/O gastric fipsql0302/19/2025linisync Result Encounter [facility] External Department Unsolicited Basim Martinez, DO 02/19/2025amboo flowsheet [facility] [address] [facility] [place] [address] Basim Martinez, DO 02/12/2025bstract [facility] [address] [place] [address] Jojo Be LPN 02/12/20257690Itvotr07/24/2025Patient Outreach [facility] [address] [place] [address] Jojo Be LPN 02/08/2025bstract [facility] [address] [place] [address] Kerrie Babcock MA 02/07/2025bstract [facility] [address] [place] [address] Basim Martinez, DO 02/06/2025 2:30 PM EDTRoutine [facility] [address] [facility] [facility] [place] [address] Jojo Ames, PA Third trimester ([facility]); 29 weeks gestation of ([facility])02/06/2025amboo flowsheet [facility] [address] [place] [address] Jojo Ames PA 01/31/2025bstract [facility] [address] [place] [address] Basim Martinez, 01/30/2025 2:30 PM EDTAncillary Procedure [facility] [address] [place] [address] TSH (thyroid-stimulating hormone deficiency)01/30/20254823Bbpeuk58/06/2025Telephone [facility] [address] [place] [address] Marsha Asif MA 01/16/2025 11:20 AM EDTRoutine [facility] [address] [facility] [place] [address] Mima Duenas, TY 26 weeks gestation of ([facility]); Second trimester ([facility]); TSH (thyroid-stimulating hormone deficiency)01/16/2025amboo flowsheet [facility] [address] [place] [address] Mima Duenas, TY 01/11/2025linisync Result Encounter [facility] External Department Unsolicited Basim Martinez, DO 01/11/2025Telephone [facility] [address] [place] [address] Bsaim Martinez, DO 01/10/2025Telephone [facility] [address] [place] [address] Jojo Ames PA 5Clinisync Result Encounter [facility] External Department Unsolicited Jojo Ames PA 01/08/2025Telephone [facility] [address] [place] [address] Jojo Ames PA 5Abstract [facility] [address] [place] [address] Basim Martinez, DO 12/19/2024 10:00 AM EDTRoutine [facility] [address] [facility] [place] [address] Jojo Ames PA 22 weeks gestation of ([facility]); Second trimester ([facility]); Thyroid disease ; H/O gastric sleeve; H/O iron deficiency anemia; Diabetes mellitus cetmzptzz46/03/2025amboo flowsheet [facility] [address] [place] [address] Jojo Ames PA from Last 3 Months Immunizations ImmunizationAdministration DatesNext AblDban0012/25/2022 Family History Medical HistoryRelationNameCommentsDiabetesFatherGreg spearsHypertensionFather Delbert spearsThyroid diseaseFatherGreg spearsObesityMotherMary spearsSkin cancer MotherMary spearsThyroid diseaseMotherMary spearsDiabetesPaternal Grandfather Ayaan FritzRelationNameStatusCommentsFatherGreg spearsAliveMotherMary nunez AlivePaternal GrandfatherLarry FritzSisterAlive Social History Tobacco UseTypesPacks/DayYears UsedDateSmoking Tobacco: FormerCigarettes0.53 Quit: 05/24/2024Smokeless Tobacco: Never Tobacco Cessation:Counseling Given: Not Answered Alcohol UseStandard Drinks/WeekCommentsNot Currently0 (1 standard drink = 0.6 oz pure alcohol)caffeine: 1-2 cups per day teaPHQ-2AnswerDate RecordedPatient Health Questionnaire-2 Syrxs831Estimated Date of Delivery SyemvaznBpa18/06/2026ased on Est. Date of ConceptionSex and Gender Information ValueDate RecordedSex Assigned at AocxtEnattp34/04/2023 8:10 PM EDTLegal Sex Fffbaf0101/17/2023 9:50 PM EDTGender MsdmdhbdGcxcoj20/04/2023 8:10 PM EDTSexual OrientationNot on fileTravel HistoryTravel StartTravel QwdAmvpdpi37/22/2025 03/16/2025 Last Filed Vital Signs Vital SignReadingTime TakenCommentsBlood Lnsietqa738/6003/05/2025 2:41 PM EST Ecgog987908/22/2024 10:04 AM EDTTemperature--Respiratory Htfu142108/22/2024 10:04 AM EDTOxygen Esebgyqdfr30%08/22/2024 10:04 AM EDTInhaled Oxygen Concentration-- Khkfni562 kg (296 lb)03/05/2025 2:41 PM CSYUxtiqv544.3 cm (5' 11 )08/22/2024 10:04 AM EDTBody Mass Index41.28008/22/2024 10:04 AM EDT Plan of Treatment DateTypeDepartmentCare Team (Latest Contact Info)Sszjadxzwut49/02/2025 11:00 AM ESTRoutine [facility] [address] [place] [address] Basim Mratinez DO [address] [facility] [place] [address] 08/21/2025 9:30 AM EDTOffice Visit [facility] [place] [facility] [address] [place] [address] Darleen Sinclair MD [address] [place] [address] Health MaintenanceDue DateLast DoneCommentsCOVID-19 Vaccine ( season) /07/2020, 07/22/2020Influenza Vaccine (#1)2024HPV/Cotest /, 10/28/2020, 10/16/2018Cervical Cancer Ozvycfojn15/04/2027 Pap Smear/07/2023, 11/02/2021neumococcal Vaccine: Pediatrics (0 to 5 Years) and At-Risk Patients (6 to 64 Years)Aged OutNo longer eligible based on patient's age to complete this topic Goals GoalPatient Goal TypeAssociated ProblemsRecent ProgressPatient-Stated?Author Reminders Care PlanOB RemindersNoOpen Scheduling, Background Procedures Procedure NamePriorityDate/TimeAssociated DiagnosisCommentsUS OB 14+ WEEKS ANATOMY SCAN03/05/2025 3:47 PM EST POCT URINALYSIS UWDLFTWMEhnuurv71/ 2:41 PM EST 33 weeks gestation of ([facility]) US OB BPP W NON-ULCDUF6403/04/2025 9:40 PM EST US OB BPP W NON-QLKGFP0302/26/2025 8:30 AM EST ALL THYROID STIM OAUVAHUMslpqzj23/04/2025 2:18 PM EST POCT URINALYSIS LTCRPQADMuqfdzw72/04/2025 1:26 PM EST Third trimester ([facility]) POCT URINALYSIS HKPCHLZQSurixyu00/22/2025 2:49 PM EDT 29 weeks gestation of ([facility]) US OB FOLLOW UP TRANSABDOMINAL RKBYBDICEjvycuv45/15/2025 3:10 PM EDT TSH (thyroid-stimulating hormone deficiency) POCT URINALYSIS EHMEWWTOQrjlvdn71/01/2025 11:40 AM EDT 26 weeks gestation of ([facility]) ALL THYROID STIM TZEPJXSJvytisy64/26/2025 2:48 PM EDT GLUCOSE 1 JHBTSfhhgxi21/24/2025 12:00 PM EDT ALL CBC WITH AUTO CRUEKbwctmz30/24/2025 12:00 PM EDT POCT URINALYSIS PHDVZUADCtlxvul47/03/2025 10:11 AM EDT 22 weeks gestation of ([facility]) Second trimester ([facility]) PAP OHZGUNjzkxqd75/04/2024 12:00 AM ESTTHINPREP TIS PAP REFLEX HPV MRNA E6/E7 (82641)Ezanxvx9811/03/2021 from Last 3 Months or Most Recently Relevant to Health Maintenance Results * US OB 14+ weeks anatomy scan (03/05/2025 3:47 PM EST)Anatomical Region LateralityModalityBodyUltrasoundSpecimen (Source)Anatomical Location / LateralityCollection Method / VolumeCollection TimeReceived Time03/05/2025 3:47 PM EST Narrative 03/05/2025 3:47 PM EST THIS EXAM WAS PERFORMED AT [facility] NAME: ??MARIA EUGENIA HINDS : 1995 SEX: F Accession Number: [id number] ORDERING PHYSICIAN: BASIM MARTINEZ REFERRING PHYSICIAN: BASIM MARTINEZ Coding Procedures ? 08681: Ultrasound, uterus, real time with image documentation, follow up,transabdominal ? approach per fetus Indication resulting from assisted reproductive technology- IUI, History of Gastric sleeve, Obesity in . History OB History ? 1. Para 0 ? [id number] Current Cell free DNA ?low risk analysis Maternal Assessment Physical Exam ??Height 180 cm, 5 ft 11 in. Initial weight 102 kg, 224 lb. Initial BMI 31.24 kg/m??? Method Transabdominal ultrasound examination. [place] . Number of fetuses: 1 Dating LMP on: ?07/19/2024 GA by LMP ?32 w + 5 d DARWIN by LMP: ?04/25/2025 Conception on: 07/31/2024 GA by conception ? 33 w + 0 d DARWIN by conception: ? 04/23/2025 Previous Ultrasound on: ?08/28/2024 Type of prior assessment: ?GA GA at prior assessment date ?5 w + 6 d GA by previous U/S ? 32 w + 6 d DARWIN by previous Ultrasound: ?04/24/2025 Ultrasound examination on: ? 03/05/2025 GA by U/S based upon: ??AC, BPD, Femur, HC GA by U/S ?33 w + 5 d DARWIN by U/S: ?04/18/2025 Assigned: ?based on the conception date, selected on 12/05/2024 Assigned GA (weeks days) ? 33 w + 0 d Assigned DARWIN: ??04/23/2025 General Evaluation Cardiac activity Present. FHR 127 bpm. Presentation: cephalic Placenta: Placental site: posterior, previously documented away from cervical os Umbilical cord: Cord vessels: 3 vessel cord. Insertion site: documented previously Amniotic fluid: Amount of AF: normal amount. MVP 7.3 cm Biometry Standard BPD ?86.3 mm 34w 6d 89% Hadlock OFD ?110.3 mm ?36w 5d 99% Gayle HC ? 308.5 mm ?34w 3d 50% Hadlock AC ? 291.4 mm ?33w 1d 55% Hadlock Femur ??62.0 mm 32w 1d 18% Hadlock Humerus ?54.6 mm 31w 5d 28% Gayle HC / AC ?1.06 EFW ?2,125 g ??45% Hadlock EFW (lb) ? 4 lb EFW (oz) ? 11 oz EFW by: ?Hadlock (DCS-PG-OB-FL) Extended Tibia ??54.8 mm 32w 2d 47% Gayle General Clerk ? 4.4 mm Head / Face / Neck Cephalic index 0.78 ? 30% Nicolaides Extremities / Bony Struc FL / BPD ? 0.72 FL / HC ?0.20 FL / AC ?0.21 Other Structures FHR ?127 bpm Anatomy The following structures appear normal: Head/Neck: Cranium. Lateral ventricles. Cavum septi pellucidi. Face: Lips. Heart/Thorax: 4-chamber view. Cardiac position. Cardiac axis. Cardiac size. Cardiac rhythm. ? Diaphragm. Abdomen: Stomach. Kidneys. Bladder. Maternal Structures Uterus Visualized Cervix Suboptimal Right Ovary ?Not visualized Left Ovary ? Not visualized Cul de Sac ? Suboptimal Impression Single live intrauterine at 33w 0d. Normal growth. EFW measures at the 45%, AC measures at the 55%. Amniotic fluid MVP measures 7.3 cm. Recommendations Please see [facility] recommendations from prior clinical and/or ultrasound report documentation. Subsequent follow up or other follow up as clinically determined by primary OB provider unless otherwise specified by M. Results forwarded to ordering provider so they can follow up with the patient as necessary. Procedure Note Radiology, Radiologist, - 03/05/2025 THIS EXAM WAS PERFORMED AT [facility] NAME: MARIA EUGENIA HINDS : 1995 SEX: F Accession Number: [id number] ORDERING PHYSICIAN: BASIM MARTINEZ REFERRING PHYSICIAN: BASIM MARTINEZ Coding Procedures 70006: Ultrasound, uterus, real time with image documentation, follow up, transabdominal approach per fetus Indication resulting from assisted reproductive technology- IUI, History of Gastric sleeve, Obesity in . History OB History 1. Para 0 [id number] Current Cell free DNA low risk analysis Maternal Assessment Physical Exam Height 180 cm, 5 ft 11 in. Initial weight 102 kg, 224 lb.Initial BMI 31.24 kg/m??? Method Transabdominal ultrasound examination. [place] . Number of fetuses: 1 Dating LMP on: 07/19/2024 GA by LMP 32 w + 5 d DARWIN by LMP: 04/25/2025 Conception on: 07/31/2024 GA by conception 33 w + 0 d DARWIN by conception: 04/23/2025 Previous Ultrasound on: 08/28/2024 Type of prior assessment: GA GA at prior assessment date 5 w + 6 d GA by previous U/S 32 w + 6 d DARWIN by previous Ultrasound: 04/24/2025 Ultrasound examination on: 03/05/2025 GA by U/S based upon: AC, BPD, Femur, HC GA by U/S 33 w + 5 d DARWIN by U/S: 04/18/2025 Assigned: based on the conception date, selected on 12/05/2024 Assigned GA (weeks days) 33 w + 0 d Assigned DARWIN: 04/23/2025 General Evaluation Cardiac activity Present. FHR 127 bpm. Presentation: cephalic Placenta: Placental site: posterior, previously documented away fromcervical os Umbilical cord: Cord vessels: 3 vessel cord. Insertion site: documented previously Amniotic fluid: Amount of AF: normal amount. MVP 7.3 cm Biometry Standard BPD 86.3 mm 34w 6d 89% Hadlock OFD 110.3 mm 36w 5d 99% Gayle HC 308.5 mm 34w 3d 50% Hadlock AC 291.4 mm 33w 1d 55% Hadlock Femur 62.0 mm 32w 1d 18% Hadlock Humerus 54.6 mm 31w 5d 28% Gayle HC / AC 1.06 EFW 2,125 g 45% Hadlock EFW (lb) 4 lb EFW (oz) 11 oz EFW by: Hadlock (ZSJ-ND-MD-FL) Extended Tibia 54.8 mm 32w 2d 47% Gayle General Clerk 4.4 mm Head / Face / Neck Cephalic index 0.78 30% Nicolaides Extremities / Bony Struc FL / BPD 0.72 FL / HC 0.20 FL / AC 0.21 Other Structures FHR 127 bpm Anatomy The following structures appear normal: Head/Neck: Cranium. Lateral ventricles. Cavum septi pellucidi. Face: Lips. Heart/Thorax: 4-chamber view. Cardiac position. Cardiac axis. Cardiacsize. Cardiac rhythm. Diaphragm. Abdomen: Stomach. Kidneys. Bladder. Maternal Structures Uterus Visualized Cervix Suboptimal Right Ovary Not visualized Left Ovary Not visualized Cul de Sac Suboptimal Impression Single live intrauterine at 33w 0d. Normal growth. EFW measures at the 45%, AC measures at the 55%. Amniotic fluid MVP measures 7.3 cm. Recommendations Please see [facility] recommendations from prior clinical and/or ultrasoundreport documentation. Subsequent follow up or other follow up as clinically determined byprimary OB provider unless otherwise specified by M. Results forwarded to ordering provider so they can follow up with thepatient as necessary. Authorizing ProviderResult TypeResult StatusCorey Juan [facility] OB US PROCEDURES Final Result * (ABNORMAL) POCT urinalysis dipstick manually resulted (03/05/2025 2:41 PM EST) Only the most recent of5 resultswithin the time period is included. ComponentValueRef RangeTest MethodAnalysis TimePerformed AtPathologist Signature Color, UAYellowClarity, UAClearGlucose, UANegativeNegative - 2000(110) ++++ mg/dLBilirubin, UANegativeNegative - 4(70) +++ mg/dLKetones, UAPositiveNegative - 160(16) ++++ mg/dLSpec Grav, UA1.0101 - 1.03Blood, UANegativeNegative - 50 Yehuda/mcLpH, UA6.55 - 9Protein, UANegativeNegative - 2000(20) ++++ mg/dL Urobilinogen, UA1.00.2 - 12 mg/dLLeukocytes, UATraceNegative - 500+++ Kourtney/mcL Nitrite, UANegativeNegative - PositiveSpecimen (Source)Anatomical Location / LateralityCollection Method / VolumeCollection TimeReceived PyhbSsxkr25/18/2025 2:41 PM EST Narrative Authorizing ProviderResult TypeResult StatusJojo Kwaku [facility] OF CARE TEST ENTER/EDIT ORDERABLESFinal Result * US OB BPP W NON-STRESS (2025 9:40 PM EST) Only the most recent of2 resultswithin the time period is included. Anatomical RegionLateralityModalityOtherSpecimen (Source)Anatomical Location / LateralityCollection Method / VolumeCollection TimeReceived Time2025 9:40 PM EST Narrative 2025 9:43 PM EST [facility] ?[address] ? [place] [address] ? Ultrasound Report ? Signed ? Patient: GUZMAN DEL CID E ?MR#: [id number] ?? : 1995 ?Acct:[id number] ?? Age/Sex: 30 / F ?ADM Date: 03/04/25 ?? Loc: US ? Attending Dr: Basim Martinez D.O. ? Ordering Physician: Basim Martinez D.O. ?? Date of Service: 03/04/25 ?? Procedure(s): US OB BPP w non-stress ?? Accession Number(s): [id number] ? cc: Basim Martinez D.O.; AMANDA FORD ? [facility] ? [address] ? [place] [address] ? Patient Name: ?? GUZMAN DEL CID ? MRN: [facility]:[id number] ? date: 1995 ?Sex: F ?? Assigned Patient Location: [facility] ?? Current Patient Location: US ?? Accession/Order Number: [id number] ?? Exam Date: 2025 ??14:03 ?Report Date: 2025 ??21:40 ? At the request of: ?? BASIM ??JUAN ??DO ? Procedure: ??US OB BPP w non-stress ? US OB BPP w non-stress ??2025 2:21 PM ? SIGNS AND SYMPTOMS: ?? 04/23/2025 ?? TSH DEFICIENCY E03.8 ? PROTOCOL: Transabdominal sonographic imaging of the gravid uterus ? COMPARISON: None ? FINDINGS: ? Estimated age: 32 weeks 6 days ? heart rate: 1 31 bpm ? Amniotic fluid index: 16.91 cm with the deepest vertical pocket measuring 7.86 ?? cm ? Biophysical profile: ? movements: 2/2 ? tone: 2/2 ? breathing movements: 2/2 ? Amniotic fluid volume: 2/2 ? US/US OB BPP w non-stress ?? IMPRESSION: ? Biophysical profile: 11/23 ? Impression dictated by: Zachary Simon M.D. ??2025 9:40 PM ? Dictation Location: RADIO-PC-17 ? Electronically authenticated by: [id number] ??Y ?? Date: 2025 ??21:40 ? Dictated By: ?Zachary Simon M.D. ? Signed By: ?03/04/252142 ? DD/ 2140 ? TD/TT: ? Still Photographer: Procedure Note Radiology, Radiologist, - 03/05/2025 [place] [address] Ultrasound Report Signed Patient: GUZMAN DEL CID EMR#: [id number] : 1995Acct:[id number] Age/Sex: 30 / FADM Date: 03/04/25 Loc: Attending Dr: Basim Martinez D.O. Ordering Physician: Basim Martinez D.O. Date of Service: 03/04/25 Procedure(s): US OB BPP w non-stress Accession Number(s): [id number] cc: Basim Martinez D.O.; AMANDA FORD [place] [id number] Patient Name: GUZMAN DEL CID MRN: [facility]:[id number] date: 1995 Sex: F Assigned Patient Location: [facility] Current Patient Location: US Accession/Order Number: [id number] Exam Date: 2025 14:03 Report Date: 2025 21:40 At the request of: BASIM MARTINEZ DO Procedure: US OB BPP w non-stress US OB BPP w non-stress 2025 2:21 PM SIGNS AND SYMPTOMS: 04/23/2025 TSH DEFICIENCY E03.8 PROTOCOL: Transabdominal sonographic imaging of the gravid uterus COMPARISON: None FINDINGS: Estimated age: 32 weeks 6 days heart rate: 1 31 bpm Amniotic fluid index: 16.91 cm with the deepest vertical pocket measuring7.86 cm Biophysical profile: movements: 2/2 tone: 2/2 breathing movements: 2/2 Amniotic fluid volume: 2/2 US/US OB BPP w non-stress IMPRESSION: Biophysical profile: 11/23 Impression dictated by: Zachary Simon M.D. 2025 9:40 PM Dictation Location: [place] [address] Electronically authenticated by: [id number] Y Date: 1:40 Dictated By: Zachary Simon M.D. Signed By:03/04/252142 DD/ 39 TD/TT: Still Photographer: Authorizing ProviderResult TypeResult StatusCorey Juan DOCLINISYNC IMAGINGFinal [...] DOCLINISYNCFinal Result Performing OrganizationAddressCity/State/ZIP CodePhone Number CLINISYNC [facility] * US OB follow up transabdominal approach [...] RangeTest Method Analysis TimePerformed AtPathologist SignatureGLUCOSE 1 USHQ570<130 mg/dLTBH Specimen (Source)Anatomical Location / LateralityCollection Method / Volume Collection TimeReceived Time01/09/2025 12:00 PM EDT01/09/2025 12:02 PM EDT Narrative CLINISYNC - 01/09/2025 12:55 PM EDT Authorizing ProviderResult TypeResult StatusJojo FINE BLOOD ORDERABLES Final ResultPerforming OrganizationAddressCity/State/ZIP CodePhone Number [facility] * (ABNORMAL) ALL CBC WITH AUTO DIFF (01/09/2025 12:00 PM EDT)ComponentValueRef RangeTest MethodAnalysis TimePerformed AtPathologist SignatureTBH WBC11.8(H) 4.0 - 11.0 10 3/uLTBHTBH RBC4.06(L)4.20 - 5.40 10 6/uLTBHTBH HGB12.012.0 - 16.0 g/dLTBHTBH HCT35.6(L)36.0 - 48.0 %TBHTBH MCV87.781.0 - 99.0 fLTBHTBH MCH 29.626.7 - 34.0 pgTBHTBH MCHC33.729.9 - 35.2 g/dLTBHTBH RDW13.211.0 - 15.0 % TBHTBH OIM643349 - 450 10 3/uLTBHTBH MPV8.7(L)9.5 - 13.5 [...] Kwaku PACLINISYNCFinal Result Performing OrganizationAddressCity/State/ZIP CodePhone Number [facility] * Pap Smear (02/20/2024 12:00 AM EST)Specimen (Source)Anatomical Location / LateralityCollection Method / VolumeCollection TimeReceived TimeSwabCervical swab / Unknown Narrative Authorizing ProviderResult TypeResult StatusCorey Juan DOLAB CYTOLOGY ORDERABLESFinal ResultPerforming OrganizationAddressCity/State/ZIP CodePhone Number EXTERNAL LAB * THINPREP TIS PAP REFLEX HPV MRNA E6/E7 ([id number]) (11/03/2021)ComponentValueRef RangeTest MethodAnalysis TimePerformed AtPathologist SignatureCLINICAL INFORMATION:None givenNOMS LEGACY EXTERNAL LABLMP:None givenNOMS LEGACY EXTERNAL LABPREV. PAP:None givenN[facility]S LEGACY EXTERNAL LABPREV. BX:None given [facility] EXTER[facility] LABSOURCE:Cervix, EndocervixNOMS LEGACY EXTERNAL LAB STATEMENT OF ADEQUACY:SEE COMMENTNOMS LEGACY EXTERNAL LABComment: Satisfactory for evaluation. Endocervical/transformation zone component present. INTERPRETATION/RESULT:Negative for intraepithelial lesion or malignancy.[facility] EXTER[facility] LABCOMMENT:This Pap test has been evaluated with computer assisted technology.[facility] LABCYTOTECHNOLOGIST:SEE COMMENTNOMS LEGACY EXTERNAL LABComment: DMK, CT(ASCP) CT screening location: [email or web address] [facility], [address] [place] [address], [place] [address]. COMMENTSEE COMMENTNOMS LEGACY EXTERNAL LABComment: EXPLANATORY NOTE: The Pap is a screening test for cervical cancer. It is not a diagnostic test and is subject to false negative and false positive results. It is most reliable when a satisfactory sample, regularly obtained, is submitted with relevant clinical findings and history, and when the Pap result is evaluated along with historic and current clinical information. NO COLLECTION DATE RECEIVED. WE HAVE USED THE DATE THE SPECIMEN WAS RECEIVED BY THIS LABORATORY THE COLLECTION DATE. IF THIS IS INCORRECT, PLEASE CONTACT CLIENT SERVICES. PHONE NUMBER: [phone] Specimen (Source)Anatomical Location / LateralityCollection Method / Volume Collection TimeReceived Time11/03/2021 Narrative Authorizing ProviderResult TypeResult StatusMona J Nataprawira DOEC LABSFinal ResultPerforming OrganizationAddressCity/State/ZIP CodePhone Number [facility] from Last 3 Months or Most Recently Relevant to Health Maintenance Additional Health Concerns Active ProblemsNoted DateDiagnosed DateOB Zzrphptos71/07/2025 Insurance Care Teams Team MemberRelationshipSpecialtyStart DateEnd Date Amanda Ford NP [facility] [place] [address] PCP - [facility] Ogfjnftt00/2/23
--- OUTSIDE RECORDS SUMMARY | 2025-03-18 14:02 | XMS_ITS | Encounter Summary ---
Author Organization [facility] Address [address] [place] [address] Care Team Providers Care Attendant Arcade Name Role Phone Amanda Ford EXECUTIVE BUSINESS COACH Primary Care Provider Encounter Details DateTypeDepartmentCare Team (Latest Contact Info)Ixxyllvhvlf29/25/2025Travel Social History Tobacco UseTypesPacks/DayYears UsedDateSmoking Tobacco: FormerCigarettes0.53 Quit: 05/24/2024Smokeless Tobacco: NeverAlcohol UseStandard Drinks/WeekComments Not Currently0 (1 standard drink = 0.6 oz pure alcohol)caffeine: 1-2 cups per day teaPHQ-2AnswerDate RecordedPatient Health Questionnaire-2 Fvrvr720 Estimated Date of LiczxpecKoxjlrslMae46/06/2026ased on Est. Date of ConceptionSex and Gender InformationValueDate RecordedSex Assigned at Wyixpx5801/19/2023 8:10 PM EDTLegal DpjIhikyb57/02/2023 9:50 PM EDTGender Identity Qsqagc2101/19/2023 8:10 PM EDTSexual OrientationNot on fileTravel HistoryTravel StartTravel WxwLpsypfy54/22/835868/documented as of this encounter Plan of Treatment DateTypeDepartmentCare Team (Latest Contact Info)Ttuxzyjkpza79/02/2025 11:00 AM ESTRoutine [facility] [address] [place] [address] [place] [address] Les Martinez, DO [address] [facility] [place] [address] [place] [address] 08/21/2025 9:30 AM EDTOffice Visit [facility] [place] [facility] [address] [place] [address] Darleen Sinclair MD [address] [place] [address] documented as of this encounter Goals GoalPatient Goal TypeAssociated ProblemsRecent ProgressPatient-Stated?Author Reminders Care PlanOB RemindersNoOpen Scheduling, Backgrounddocumented as of this encounter Visit Diagnoses Not on filedocumented in this encounter Additional Health Concerns Active ProblemsNoted DateDiagnosed DateOB Ewpjrhxbz65/07/2025 documented as of this encounter Care Teams Team MemberRelationshipSpecialtyStart DateEnd Date Amanda Ford NP [facility] [facility] [place] [address] PCP - GeneralFamily Vpeoirgf80/2/23documented as of this encounter
--- OUTSIDE RECORDS SUMMARY | 2025-03-18 14:02 | XMS_ITS | Encounter Summary ---
Author Organization [facility] Address [address] [place] [address] Care Team Providers Care Process Inspector Name Role Phone Amanda Ford ASSEMBLY MACHINE SET UP MECHANIC Primary Care Provider Encounter Details DateTypeDepartmentCare Team (Latest Contact Info)Rwmjbduxmzk15/18/2025External Result Encounter [facility] [address] [facility] [place] [address] Basim Martinez DO [address] [facility] [address] [place], [facility]11 Social History Tobacco UseTypesPacks/DayYears UsedDateSmoking Tobacco: FormerCigarettes0.53 Quit: 05/24/2024Smokeless Tobacco: NeverAlcohol UseStandard Drinks/WeekComments Not Currently0 (1 standard drink = 0.6 oz pure alcohol)caffeine: 1-2 cups per day teaPHQ-2AnswerDate RecordedPatient Health Questionnaire-2 Hxgqw407 Estimated Date of AwfihjueOpgkcwiiKpq85/06/2026ased on Est. Date of ConceptionSex and Gender InformationValueDate RecordedSex Assigned at Gelbyy8801/19/2023 8:10 PM EDTLegal GpbUjxzet50/02/2023 9:50 PM EDTGender Identity Uwbijp8101/19/2023 8:10 PM EDTSexual OrientationNot on fileTravel HistoryTravel StartTravel YraMnbgaqk52/22/31641105/16/2024documented as of this encounter Plan of Treatment DateTypeDepartmentCare Team (Latest Contact Info)Psplluvaslf85/02/2025 11:00 AM ESTRoutine [facility] [address] [facility] [place] [phone] Basim Martinez DO [address] [facility] [address] [place], [place] [address] 08/21/2025 9:30 AM EDTOffice Visit [facility] [address] [place] [phone] Darleen Sinclair MD [address] [place] [address] documented as of this encounter Goals GoalPatient Goal TypeAssociated ProblemsRecent ProgressPatient-Stated?Author Reminders Care PlanOB RemindersNoOpen Scheduling, Backgrounddocumented as of this encounter Procedures Procedure NamePriorityDate/TimeAssociated DiagnosisCommentsUS OB 14+ WEEKS ANATOMY SCAN03/05/2025 3:47 PM EST documented in this encounter Results * US OB 14+ weeks anatomy scan (03/05/2025 3:47 PM EST)Anatomical Region LateralityModalityBodyUltrasoundSpecimen (Source)Anatomical Location / LateralityCollection Method / VolumeCollection TimeReceived Time03/05/2025 3:47 PM EST Narrative 03/05/2025 3:47 PM EST THIS EXAM WAS PERFORMED AT [facility] NAME: ??MARIA EUGENIA HINDS : 1995 SEX: F Accession Number: [id number] ORDERING PHYSICIAN: BASIM MARTINEZ REFERRING PHYSICIAN: BASIM MARTINEZ Coding Procedures ? 31561: Ultrasound, uterus, real time with image documentation, follow up,transabdominal ? approach per fetus Indication resulting from assisted reproductive technology- IUI, History of Gastric sleeve, Obesity in . History OB History ? 1. Para 0 ? [id number] Current Cell free DNA ?low risk analysis [...] (oz) ? 11 oz EFW by: ?Hadlock (WLB-LD-QJ-FL) Extended Tibia ??54.8 mm 32w 2d 47% Gayle Script Manager ? 4.4 mm Head / Face / [...] MVP measures 7.3 cm. Recommendations Please see [facility] recommendations from prior clinical and/or ultrasound report documentation. Subsequent follow up or other follow up as clinically determined by primary OB provider unless otherwise specified by M. Results forwarded to ordering provider so they can follow up with the patient as necessary. Procedure Note Radiology, Radiologist, - 03/05/2025 THIS EXAM WAS PERFORMED AT [facility] NAME: MARIA EUGENIA HINDS : 1995 SEX: F Accession Number: [id number] ORDERING PHYSICIAN: BASIM MARTINEZ REFERRING PHYSICIAN: BASIM MARTINEZ Coding Procedures 52341: Ultrasound, uterus, real time with image documentation, follow up, transabdominal approach per fetus Indication resulting from assisted reproductive technology- IUI, History of Gastric sleeve, Obesity in . History OB History 1. Para 0 [id number] Current Cell free DNA low risk analysis [...] EFW (oz) 11 oz EFW by: Hadlock (DDW-WQ-ZQ-FL) Extended Tibia 54.8 mm 32w 2d 47% Gayle Script Manager 4.4 mm Head / Face / Neck [...] MVP measures 7.3 cm. Recommendations Please see [facility] recommendations from prior clinical and/or ultrasoundreport documentation. Subsequent follow up or other follow up as clinically determined byprimary OB provider unless otherwise specified by [facility]. Results forwarded to ordering provider so they can follow up with thepatient as necessary. Authorizing ProviderResult TypeResult StatusCorey Juan SIERRA OB US PROCEDURES Final Result documented in this encounter Visit Diagnoses Not on filedocumented in this encounter Additional Health Concerns Active ProblemsNoted DateDiagnosed DateOB Tbymzlaqo34/07/2025 documented as of this encounter Care Teams Team MemberRelationshipSpecialtyStart DateEnd Date Amanda Ford NP [address] [place] [address] PCP - GeneralFamily Zzxyrlom19/2/23documented as of this encounter
--- OUTSIDE RECORDS SUMMARY | 2025-03-18 14:02 | XMS_ITS | Clinical Summary ---
Author Organization [facility] Address [address] [place] [address] Phone Care Team Providers Care Hospice Community Liaison Name Role Phone Unavailable Primary Care Provider Unavailabl e Social History Tobacco UseTypesPacks/DayYears UsedDateSmoking Tobacco: Never Assessed CommentsUnknownSex and Gender InformationValueDate RecordedSex Assigned at Not on fileLegal SbkInqiny69/26/2024 8:23 AM EDTGender IdentityNot on fileSexual OrientationNot on file Plan of Treatment Health MaintenanceDue DateLast DoneCommentsHIV Lplgyferp1995Lipid Panel 1995TSH Level1995MMR Vaccines (1 of 1 - Standard series)1996 Hepatitis C Qiockfjam00/17/2013Hepatitis B Vaccines (1 of 3 - 19+ 3-dose series) 2014HPV/Zuiyej0603/04/2016HPV Vaccines (1 - 3-dose standard series) 2022Influenza Vaccine (#1)5COVID-19 Vaccine (3 - 2024- season) 505/07/2020, 07/22/2020Yearly Adult Udwfjkci64/07/2023 Cervical Cancer Invxniyff60/04/2027Pap Smear/TaP/Tdap/Td Vaccines (2 - Td or Tdap)/12/2022Zoster [...]
--- OUTSIDE RECORDS SUMMARY | 2025-03-18 14:02 | XMS_ITS | Encounter Summary ---
Author Organization [facility] Address [address] [place] [address] Care Team Providers Care Scientific Artist Name Role Phone Amanda Ford SVP GROUP DIRECTOR Primary Care Provider Encounter Details DateTypeDepartmentCare Team (Latest Contact Info)Pmgrhpyugwq13/25/2025Patient Outreach [facility] [address] [place] [phone] Jojo Be, YANDEL [address] [place], [place] [id number] Social History Tobacco UseTypesPacks/DayYears UsedDateSmoking Tobacco: FormerCigarettes0.53 Quit: 05/24/2024Smokeless Tobacco: NeverAlcohol UseStandard Drinks/WeekComments Not Currently0 (1 standard drink = 0.6 oz pure alcohol)caffeine: 1-2 cups per day teaPHQ-2AnswerDate RecordedPatient Health Questionnaire-2 Teesv210 Estimated Date of GeoiuosuTfdorlseHoi46/06/2026ased on Est. Date of ConceptionSex and Gender InformationValueDate RecordedSex Assigned at Guifju3001/19/2023 8:10 PM EDTLegal FjdFdince31/02/2023 9:50 PM EDTGender Identity Ansppz6601/19/2023 8:10 PM EDTSexual OrientationNot on fileTravel HistoryTravel StartTravel LuyJlyemzs64/22/202511/2025documented as of this encounter Progress Notes * Jojo Be LPN - 03/12/2025 9:53 AM EST Monthly outreach. Call to pt X2, LVM documented in this encounter Plan of Treatment DateTypeDepartmentCare Team (Latest Contact Info)Usqhmrznhjs57/02/2025 11:00 AM ESTRoutine [facility] [address] [facility] [place] [address] Les Martinez DO [address] [facility] [address] [place] [place], [place] [address] 08/21/2025 9:30 AM EDTOffice Visit [facility] [place] [facility] [address] [place] [address] Darleen Sinclair MD [address] [place] [address] documented as of this encounter Goals GoalPatient Goal TypeAssociated ProblemsRecent ProgressPatient-Stated?Author Reminders Care PlanOB RemindersNoOpen Scheduling, Backgrounddocumented as of this encounter Visit Diagnoses Not on filedocumented in this encounter Additional Health Concerns Active ProblemsNoted DateDiagnosed DateOB Eyhhxqesd95/07/2025 documented as of this encounter Care Teams Team MemberRelationshipSpecialtyStart DateEnd Date Amanda Ford NP [address] [facility] [place] [address] PCP - GeneralFamily Rmezpxxz44/2/23documented as of this encounter
--- OUTSIDE RECORDS SUMMARY | 2025-03-18 14:02 | XMS_ITS | Encounter Summary ---
Author Organization [facility] Address [address] [place] [address] Care Team Providers Care Beer Runner Name Role Phone Amanda Ford GLOBAL SALES DIRECTOR Primary Care Provider Encounter Details DateTypeDepartmentCare Team (Latest Contact Info)Lcxsahqivoj71/18/2025Telephone GUDELIA [facility]o OBGYTanja [address] [facility] [place] [address] Marsha Asif ID [address] [facility] [place] [address] Social History Tobacco UseTypesPacks/DayYears UsedDateSmoking Tobacco: FormerCigarettes0.53 Quit: 05/24/2024Smokeless Tobacco: NeverAlcohol UseStandard Drinks/WeekComments Not Currently0 (1 standard drink = 0.6 oz pure alcohol)caffeine: 1-2 cups per day teaPHQ-2AnswerDate RecordedPatient Health Questionnaire-2 Zwtur489 Estimated Date of PzjmzosvRgvpjkimFvg55/06/2026ased on Est. Date of ConceptionSex and Gender InformationValueDate RecordedSex Assigned at Lyghgn3601/19/2023 8:10 PM EDTLegal KbjHztxqm74/02/2023 9:50 PM EDTGender Identity Paqkgd3001/19/2023 8:10 PM EDTSexual OrientationNot on fileTravel HistoryTravel StartTravel OccBfglcog29/22/728447/29/2025documented as of this encounter Plan of Treatment DateTypeDepartmentCare Team (Latest Contact Info)Hogyfztbffo42/02/2025 11:00 AM ESTRoutine [facility] [address] [facility] [place] [address] Les Martinez DO [address] [facility] [place] [address] 08/21/2025 9:30 AM EDTOffice Visit [facility] [place] [facility] [address] [place] [address] Darleen Sinclair MD [address] [place] [address] NameTypePriorityAssociated DiagnosesDate/TimeUS OB follow up transabdominal approachImagingRoutine Thyroid disease H/O gastric sleeve 03/05/2025 4:33 PM ESTNameTypePriorityAssociated DiagnosesOrder ScheduleUS OB follow up transabdominal approachImagingRoutine Thyroid disease H/O gastric sleeve Expected: 03/05/2025 (Approximate), Expires: 03/05/2026documented as of this encounter Goals GoalPatient Goal TypeAssociated ProblemsRecent ProgressPatient-Stated?Author Reminders Care PlanOB RemindersNoOpen Scheduling, Backgrounddocumented as of this encounter Visit Diagnoses Diagnosis Thyroid disease Unspecified disorder of thyroid H/O gastric sleeve documented in this encounter Additional Health Concerns Active ProblemsNoted DateDiagnosed DateOB Pmjfhxfdx54/07/2025 documented as of this encounter Care Teams Team MemberRelationshipSpecialtyStart DateEnd Date Amanda Ford NP [address] [facility] [address] [place], [place] [phone] PCP - GeneralFamily Dfanomuc96/2/23documented as of this encounter
--- OUTSIDE RECORDS SUMMARY | 2025-03-18 14:02 | XMS_ITS | Clinical Summary ---
Author Organization [facility] Address [address] [place] [address] Care Team Providers Care Welfare Case Worker Name Role Phone Unavailable Primary Care Provider Unavailabl e Medications MedicationSigDispense QuantityRefillsLast FilledStart DateEnd DateStatus naltrexone 50 mg tablet Take 2 tablets by mouth two times a day.06/03/2023ctive lansoprazole (PREVACID) 30 mg capsule Take 30 mg by mouth once daily.Active acetaminophen (TYLENOL) 500 mg tablet Take 500 mg by mouth every 8 hours as needed for pain.4Active lamoTRIgine (LAMICTAL) 200 mg tablet Take 200 [...] RecordedNational Score (1-100), lower number is lower htwv006402/28/2024State Score (1-10), lower number is lower pqws83204/29/2023 Data from: https://www.neighborhoodatlas.medicine.[facility]/. Last address used for [address] self fyhhpjxpa64/12/2024CommentsYesSex and Gender InformationValueDate RecordedSex Assigned at BirthNot on fileLegal SexFemale 07/13/2023 12:45 PM EDTGender IdentityNot on fileSexual OrientationNot on file Last Filed Vital Signs Vital SignReadingTime TakenCommentsBlood Pressure--Pulse--Temperature-- Respiratory Rate--Oxygen Saturation--Inhaled Oxygen Concentration--Uueqmc66.3 kg (216 lb 11.4 oz)02/28/2024 2:03 PM OUMWipwxc386.3 cm (5' 11 )02/28/2024 2:03 PM ESTBody Mass Index30.23104/29/2023 2:03 PM EST Plan of Treatment Health MaintenanceDue DateLast DoneCommentsAnxiety Usiyvbivw13/17/2013Depression Ulbjxtyil97/17/2013Hepatitis B Vaccine (1 of 3 - 19+ 3-dose series)2014 Cervical Cancer Owqplcexk03/17/2016HPV Vaccine (1 - 3-dose SCDM series) 2022ovid-19 Vaccine ( - 2024- season)2024Influenza Vaccine (#1) 2024DTaP,Tdap,Td Vaccine (2 - Td or Tdap)/12/2022RSV Vaccine (1 - 1-dose 75+ series)2070HIV PgrtxaardHmkhlsqni71/16/2024Hepatitis C EtzwpejonKtuxzxpxb79/16/2024 Procedures Procedure NamePriorityDate/TimeAssociated DiagnosisCommentsHIV 1/2 COMBO WITH REFLEX TO NBWMEHAUCNUMZDCYytaxsz11/16/2024 3:21 PM EST Special screening examination for infectious diseases HEPATITIS C ANTIBODY IA WITH MFNZCBLHTKYUSdwfces85/16/2024 3:21 PM EST Special screening examination for infectious diseases from Last 3 Months or Most Recently Relevant to Health Maintenance Results * HIV 1/2 COMBO WITH REFLEX TO DIFFERENTIATION (04/02/2024 3:21 PM EST)Component ValueRef RangeTest MethodAnalysis TimePerformed AtPathologist SignatureHIV 12 Combo (Ag/Ab)ZpyxlprvnwlGodgoholmgd87/17/2024 12:27 PM [facility]HIV-1/2 AB (Confirmatory)04/03/2024 12:27 PM [facility]Comment:Test not indicated.HIV Whlvlnmddbvnyg00/17/2024 12:27 PM [facility]Comment: No evidence of HIV-1 or HIV-2 infection. Should recent infection be suspected, repeat testing may be considered 2-3 weeks after this draw. Cherry Rev. Code 3701.243(E): This information has been [...] Final ResultPerforming OrganizationAddressCity/State/ZIP CodePhone Number [facility] [address] [place] [address], * HEPATITIS C ANTIBODY IA WITH CONFIRMATION (04/02/2024 3:21 PM EST)Component ValueRef RangeTest MethodAnalysis TimePerformed AtPathologist SignatureHep C Antibody VVUzcvgpaxWhuikeef76/17/2024 11:20 AM [facility]Comment:The result suggests no evidence of active infection with Hepatitis C virus. Should recent infectionbe suspected, repeat testing may be considered 4-6 weeks after this draw.Specimen (Source)Anatomical Location / Laterality Collection Method / VolumeCollection TimeReceived TimeBloodBLOOD SPECIMEN / UnknownVenipuncture / Jmfrtdo7304/02/2024 3:21 PM EST04/02/2024 3:22 PM EST Narrative Authorizing ProviderResult TypeResult StatusShelly Hernandez APRN.CNPLABORATORY Final ResultPerforming OrganizationAddressCity/State/ZIP CodePhone Number [facility] [address] [facility] [address] [address], from Last 3 Months or Most Recently Relevant to Health Maintenance Insurance
--- OUTSIDE RECORDS SUMMARY | 2025-03-18 14:02 | XMS_ITS | Encounter Summary ---
Author Organization [facility] Address [address] [place] [address] Care Team Providers Care Cotton Picking Machine Operator Name Role Phone Amanda Ford SALES AND MARKETING MANAGER Primary Care Provider Encounter Details DateTypeDepartmentCare Team (Latest Contact Info)Yxlgmwrrdsd40/18/2025Travel Social History Tobacco UseTypesPacks/DayYears UsedDateSmoking Tobacco: FormerCigarettes0.53 Quit: 05/24/2024Smokeless Tobacco: NeverAlcohol UseStandard Drinks/WeekComments Not Currently0 (1 standard drink = 0.6 oz pure alcohol)caffeine: 1-2 cups per day teaPHQ-2AnswerDate RecordedPatient Health Questionnaire-2 Rdmsz414 Estimated Date of BkclxvzjJknrhnblJbq32/06/2026ased on Est. Date of ConceptionSex and Gender InformationValueDate RecordedSex Assigned at Jcmzkx1401/19/2023 8:10 PM EDTLegal EgiUciebu70/02/2023 9:50 PM EDTGender Identity Uzrqnk8001/19/2023 8:10 PM EDTSexual OrientationNot on fileTravel HistoryTravel StartTravel HyuDkusibx97/22/308360/documented as of this encounter Plan of Treatment DateTypeDepartmentCare Team (Latest Contact Info)Nrvxxgqxewy41/02/2025 11:00 AM ESTRoutine [facility] [place] [facility] [address] [place] [address] [place] [address] Les Martinez, DO [address] [facility] [place] [address] [place] [address] 08/21/2025 9:30 AM EDTOffice Visit [facility] [place] [facility] [address] [place] [address] Darleen Sinclair MD [address] [place] [address] documented as of this encounter Goals GoalPatient Goal TypeAssociated ProblemsRecent ProgressPatient-Stated?Author Reminders Care PlanOB RemindersNoOpen Scheduling, Backgrounddocumented as of this encounter Visit Diagnoses Not on filedocumented in this encounter Additional Health Concerns Active ProblemsNoted DateDiagnosed DateOB Urkddpvyn36/07/2025 documented as of this encounter Care Teams Team MemberRelationshipSpecialtyStart DateEnd Date Amanda Ford NP [facility] [facility] [place] [address] PCP - GeneralFamily Kyvjgish23/2/23documented as of this encounter
--- OUTSIDE RECORDS SUMMARY | 2025-03-18 14:03 | XMS_ITS | Encounter Summary ---
Author Organization [facility] Address [address] [place] [address] Care Team Providers Care Commercial Producer Name Role Phone Amanda Hewitt BLANKBOOK FORWARDER Primary Care Provider Encounter Details DateTypeDepartmentCare Team (Latest Contact Info)Mmeqbpkddrg91/17/2025Clinisync Result Encounter [facility] External Department Unsolicited Basim [place], DO [address] [facility] [address] [place], [place] [phone] Social History Tobacco UseTypesPacks/DayYears UsedDateSmoking Tobacco: Every DayCigarettes0.53 Smokeless Tobacco: NeverAlcohol UseStandard Drinks/WeekCommentsNot Currently0 (1 standard drink = 0.6 oz pure alcohol)caffeine: 1-2 cups per day teaPHQ-2Answer Date RecordedPatient Health Questionnaire-2 Uimcn919Estimated Date of UvvcxxqtRyvgstwoWfp08/06/2026Based on Est. Date of ConceptionSex and Gender InformationValueDate RecordedSex Assigned at AgblcHuguqf21/04/2023 8:10 PM EDTLegal MymAguktt24/02/2023 9:50 PM EDTGender DnekrqbcFmpbrn24/04/2023 8:10 PM EDTSexual OrientationNot on fileTravel HistoryTravel StartTravel EndFlorida documented as of this encounter Plan of Treatment DateTypeDepartmentCare Team (Latest Contact Info)Wkfyeklvpkp80/02/2025 11:00 AM ESTRoutine [facility] [address] [facility] [place] [address] Basim Birmingham, DO [address] [facility] [place] [address] 08/21/2025 9:30 AM EDTOffice Visit [facility] [place] [facility] [address] [place] [address] Darleen Sinclair MD [address] [place] [address] documented as of this encounter Goals GoalPatient Goal TypeAssociated ProblemsRecent ProgressPatient-Stated?Author Reminders Care PlanOB RemindersNoOpen Scheduling, Backgrounddocumented as of this encounter Procedures Procedure NamePriorityDate/TimeAssociated DiagnosisCommentsUS OB BPP W NON-DQLXYG6603/04/2025 9:40 PM EST documented in this encounter Results * US OB BPP W NON-STRESS (2025 9:40 PM EST)Anatomical Region LateralityModalityOtherSpecimen (Source)Anatomical Location / Laterality Collection Method / VolumeCollection TimeReceived Time2025 9:40 PM EST Narrative 2025 9:43 PM EST [facility] ?[address] ? [place] [address] ? Ultrasound Report ? Signed ? Patient: DEL CIDGUZMAN ANDERSON Colt ?MR#: [id number] ?? : 1995 ?Acct:[id number] ?? Age/Sex: 30 / F ?ADM Date: 03/04/25 ?? Loc: US ? Attending Dr: Basim Birmingham D.O. ? Ordering Physician: Basim Birmingham D.O. ?? Date of Service: 03/04/25 ?? Procedure(s): US OB BPP w non-stress ?? Accession Number(s): [id number] ? cc: Basim [place] D.O.; AMANDA HEWITT ? [facility] ? [address] ? [place] [address] ? Patient Name: ?? GUZMAN DEL CID ? MRN: [facility]:[id number] ? date: 1995 ?Sex: F ?? Assigned Patient Location: [facility] ?? Current Patient Location: ?? Accession/Order Number: [id number] ?? Exam Date: 2025 ??14:03 ?Report Date: [...] w non-stress ?? IMPRESSION: ? Biophysical profile: 8/8 ? Impression dictated by: Zachary Simon M.D. ??2025 9:40 PM ? Dictation Location: [facility]--17 ? Electronically authenticated by: [id number] ??Y ?? Date: 2025 ??21:40 ? Dictated By: ?Zachary Simon M.D. ? Signed By: ?03/04/253 ? DD/ 39 ? TD/TT: ? Supervisor Spring Up: Procedure Note Radiology, Radiologist, - 03/05/[address] [address] Ultrasound Report Signed Patient: GUZMAN DEL CID [facility]#: [id number] : 1995Acct:[id number] Age/Sex: 30 / FADM Date: 03/04/25 Loc: US Attending Dr: Basim Birmingham D.O. Ordering Physician: Basim Birmingham D.O. Date of Service: 03/04/25 Procedure(s): US OB BPP w non-stress Accession Number(s): [id number] cc: Basim Birmingham D.O.; AMANDA HEWITT [place] [address] Patient Name: GUZMAN DEL CID MRN: [facility]:[id number] date: 1995 Sex: F Assigned Patient Location: [facility] Current Patient Location: US Accession/Order Number: [id number] Exam Date: 2025 14:03 Report Date: 2025 21:40 At the request of: BASIM BIRMINGHAM DO Procedure: US OB BPP w non-stress [...] Simon M.D. 2025 9:40 PM Dictation Location: [place] [address] Electronically authenticated by: [id number] Y Date: 1:40 Dictated By: Zachary Simon M.D. Signed By:03/04/252142 DD/ 39 TD/TT: Supervisor Spring Up: Authorizing ProviderResult TypeResult StatusCorey Juan DOCLINISYNC IMAGINGFinal Result documented in this encounter Visit Diagnoses Not on filedocumented in this encounter Additional Health Concerns Active ProblemsNoted DateDiagnosed DateOB /2025 documented as of this encounter Care Teams Team MemberRelationshipSpecialtyStart DateEnd Date Amanda Hewitt NP [address] [place], [place] [phone] PCP - GeneralFamily Rkpbntix45/2/23documented as of this encounter
--- OUTSIDE RECORDS SUMMARY | 2025-03-18 14:03 | XMS_ITS | Encounter Summary ---
Author Organization [facility] Address [address] [place] [address] Care Team Providers Care Radio Producer Name Role Phone Amanda Ford RUBBER CUTTER Primary Care Provider Encounter Details DateTypeDepartmentCare Team (Latest Contact Info)Zyymjwkkcbt12/18/2025Bamboo flowsheet [facility] [address] [facility] [place] [address] Jojo Ames PA [address] [facility] [address] [place], [facility]11 Social History Tobacco UseTypesPacks/DayYears UsedDateSmoking Tobacco: FormerCigarettes0.53 Quit: 05/24/2024Smokeless Tobacco: NeverAlcohol UseStandard Drinks/WeekComments Not Currently0 (1 standard drink = 0.6 oz pure alcohol)caffeine: 1-2 cups per day teaPHQ-2AnswerDate RecordedPatient Health Questionnaire-2 Aflwa937 Estimated Date of WefsaonvAyczldyuDvk25/06/2026Based on Est. Date of ConceptionSex and Gender InformationValueDate RecordedSex Assigned at Wzvkub6501/19/2023 8:10 PM EDTLegal BhdXpaumu71/02/2023 9:50 PM EDTGender Identity Pznolh1601/19/2023 8:10 PM EDTSexual OrientationNot on fileTravel HistoryTravel StartTravel KvtZzfoqpb97/22/58838805/16/2024documented as of this encounter Plan of Treatment DateTypeDepartmentCare Team (Latest Contact Info)Ergcnytbved64/02/2025 11:00 AM ESTRoutine [facility] [address] [facility] [place] [address] Les Martinez DO [address] [facility] [place] [address] 08/21/2025 9:30 AM EDTOffice Visit [facility] [place] [facility] [address] [place] [phone] Darleen Sinclair MD [address] [place] [address] documented as of this encounter Goals GoalPatient Goal TypeAssociated ProblemsRecent ProgressPatient-Stated?Author Reminders Care PlanOB RemindersNoOpen Scheduling, Backgrounddocumented as of this encounter Visit Diagnoses Not on filedocumented in this encounter Additional Health Concerns Active ProblemsNoted DateDiagnosed DateOB Jacjgxqbu83/07/2025 documented as of this encounter Care Teams Team MemberRelationshipSpecialtyStart DateEnd Date Amanda Ford NP [address] [facility] [place] [address] PCP - GeneralFamily Jzmkjjrn69/2/23documented as of this encounter
--- OUTSIDE RECORDS SUMMARY | 2025-03-18 14:03 | XMS_ITS | Encounter Summary ---
Author Organization [facility] Address [address] [place] [address] Care Team Providers Care Learning Disabilities Teacher Name Role Phone Amanda Ford TALENT ACQUISITION PARTNER Primary Care Provider Encounter Details DateTypeDepartmentCare Team (Latest Contact Info)Ymvvkfzafuk07/17/2025Travel Social History Tobacco UseTypesPacks/DayYears UsedDateSmoking Tobacco: Every DayCigarettes0.53 Smokeless Tobacco: NeverAlcohol UseStandard Drinks/WeekCommentsNot Currently0 (1 standard drink = 0.6 oz pure alcohol)caffeine: 1-2 cups per day teaPHQ-2Answer Date RecordedPatient Health Questionnaire-2 Mxeyz308Estimated Date of BhoyocorAeqaqxilXqm90/06/2026Based on Est. Date of ConceptionSex and Gender InformationValueDate RecordedSex Assigned at UminaPotmzd91/04/2023 8:10 PM EDTLegal DczOsionx45/02/2023 9:50 PM EDTGender IrduhsapTadnud96/04/2023 8:10 PM EDTSexual OrientationNot on fileTravel HistoryTravel StartTravel EndFlorida 511/documented as of this encounter Plan of Treatment DateTypeDepartmentCare Team (Latest Contact Info)Sqreurozccp01/02/2025 11:00 AM ESTRoutine [facility] [address] [place] [address] [place] [address] Les Martinez, DO [address] [facility] [address] [place], [place] [address] 08/21/2025 9:30 AM EDTOffice Visit [facility] [place] [facility] [address] [place] [address] Darleen Sinclair MD [address], [address] [place] [address] documented as of this encounter Goals GoalPatient Goal TypeAssociated ProblemsRecent ProgressPatient-Stated?Author Reminders Care PlanOB RemindersNoOpen Scheduling, Backgrounddocumented as of this encounter Visit Diagnoses Not on filedocumented in this encounter Additional Health Concerns Active ProblemsNoted DateDiagnosed DateOB Bkfaxluvb27/07/2025 documented as of this encounter Care Teams Team MemberRelationshipSpecialtyStart DateEnd Date Amanda Ford NP [facility] [facility] [place] [address] PCP - GeneralFamily Mpirkyps41/2/23documented as of this encounter
[2025-03-18 14:21] VITALS: BP 124/69; PULSE 66
== END 2025-03-18 15:10 | disposition home or self-care (01) ==
LOC: US 13:59 → FBC 14:05
PROVIDERS: PCP Nurse Practitioner Family; Visit Provider Obstetrics & Gynecology
DX: O99.283 Endocrine, nutritional and metabolic diseases complicating pregnancy, third trimester (principal); Z3A.34 34 weeks gestation of pregnancy
CPT/HCPCS: 76818

== ENCOUNTER 2025-03-21 14:00 | Outpatient (OUT) | payer MEDICAID, SELFPAY ==
[2025-03-21 14:07] VITALS: BP 124/65; PULSE 81
--- NOTE | 2025-03-21 14:56 | US_ITS ---
[address] [address] Patient Name: GUZMAN DEL CID MRN: [id number] date: 1995 Sex: F Assigned Patient Location: [facility] Current Patient Location: Accession/Order Number: [id number] Exam Date: 03/21/2025 15:00 Report Date: 03/21/2025 15:52 At the request of: BASIM BIRMINGHAM DO Procedure: US OB BPP w non-stress Biophysical profile. Reason for exam: Thyroid deficiency decreased movement COMPARISON: 03/18/2025 TECHNIQUE: Transabdominal imaging of the gravid uterus was obtained. FINDINGS: The advanced practice rn reports a BPP of 8 out of 8. STARR is normal at 14.4 cm. heart rate 136 bpm. US/US OB BPP w non-stress IMPRESSION: BPP 8 out of 8. Impression dictated by: Sravan Dickinson Jr., D.O. 03/21/2025 3:52 PM Dictation Location: [place] [address] Electronically authenticated by: [id number] Y Date: 03/21/2025 15:52
== END 2025-03-21 15:22 | disposition home or self-care (01) ==
LOC: FBCO 14:00 → FBC 14:02
PROVIDERS: PCP Nurse Practitioner Family; Visit Provider Obstetrics & Gynecology
DX: O99.283 Endocrine, nutritional and metabolic diseases complicating pregnancy, third trimester (principal); E07.9 Disorder of thyroid, unspecified; Z3A.35 35 weeks gestation of pregnancy
CPT/HCPCS: 76818

== ENCOUNTER 2025-03-22 20:38 | Observation (INO) | payer MEDICAID, SELFPAY ==
--- OUTSIDE RECORDS SUMMARY | 2023-08-31 05:45 | XMS_ITS | Continuity of Care Document ---
Author Organization [facility] Address [address] [place] [address] Phone Care Team Providers Care Line Patrolman Name Role Phone Jo Melvin DDS Unavailable Unavailable Allergies, Adverse Reactions, Alerts Substance Reaction Status Criticality ibuprofen Active No Information Medications Medication Instructions Dosage Effective Dates (start - stop) Status Comments levothyroxine 50 mcg capsule take 1 capsule by oral route every day 50 MCG - Active buspirone 30 mg tablet take 1 tablet by oral route 2 times every day 30 MG - Active iron 325 mg (65 mg iron) tablet take 1 tablet by oral route every day 325 MG - Active lamotrigine 200 mg tablet take 1 tablet by oral route 2 times every day 200 MG - Active lansoprazole 30 mg capsule,delayed release take 1 capsule by oral route every day before a meal 30 MG - Active cyclobenzaprine 10 mg tablet take 1 tablet by oral route 3 times every day 10 MG - Active docusate calcium 240 mg capsule take 1 capsule by oral route every day as needed 240 MG - Active Naltrex 4.5 mg capsule - Active quetiapine 25 mg tablet take 1 tablet by oral route 2 times every day 25 MG - Active Procedures Procedure Date Oral Hygiene Instruction Post Op Visit Dental Bitewig-single Film Intraoral-periapical 1st Film Kmoqifmgo-tpdcjpsqnf-igja Additional Jul Oral Hygiene Instruction Limited Oral Eval Oral/Facial Photographic Images 024 Prophylaxis Adult Nutrit Couns For Control Of [place] Dis Jul Oral Hygiene Instruction Oral Hygiene Instruction Resin Composite 1s; Posterior 3 Resin Composite 1s; Posterior 3 Oral Hygiene Instruction Resin Composite 2s; Posterior 3 Resin Composite 1s; Posterior 3 Resin Composite 2s; Posterior 3 Resin Composite 2s; Posterior 3 Oral Hygiene Instruction Intraoral-complete Series (bw) Oral Hygiene Instruction Comp Oral Eval New/estab Patient 2022 Advance Directives Directive Yes / No Effective Date File Name No Information Encounters Encounter Description Practice Location Reason(s) For Visit Diagnoses Date Provider Providers Copied on Encounter [facility], [address] [place] [address], [id number], tel:[phone] Dental Clinic de (chief complaint) Encounter for screening for dental disorders [facility]. . tel:[phone] [facility], [address] [place] [address], [id number], [place] tel:[phone] Dental Clinic dl (chief complaint) Encounter for screening for dental disorders [facility]. [address] [place] [address], [address], [place]. tel:[phone] [facility], [address] [place] [address], [id number], tel:[phone] [facility] [place] (chief complaint) Body mass index [BMI] 28.0-28.9, adultEncounter for screening for dental disorders Aaron S Butch. [address] [place] [address], [address], [place]. tel:[phone] [facility], [address] [place] [address], [id number], tel:[phone] Dental Clinic fill (chief complaint) Encounter for screening for dental disorders Ngozi S Jo. . tel:[phone] [facility], [address] [place] [address], [id number], [place] tel:[phone] Dental Clinic fill (chief complaint) Encounter for screening for dental disorders Ngozi Osorio. . tel: [phone] [facility], [address] [place] [address], [id number], [place] tel:[phone] Dental Clinic fill (chief complaint) Encounter for screening for dental disorders Ngozi Osorio. . tel: [phone] [facility], [address] [place] [address], [id number], [place] tel:[phone] Dental Clinic [place] (chief complaint) Encounter for screening for dental disorders Ngozi Osorio. . tel: [phone] Family History Family Member Type Diagnosis Age At Onset No Information Payers Payer name Insurance type Covered constitution party ID Authoriza tion(s) No Information Social History Type Description Quantity Date Captured Comments Alcohol Use Details Unknown Caffeine Use Details Unknown Tobacco Use Status No Information Smoking Status No Information Sex Female Sexual Orientation Straight or heterosexual Gender Identity Female Chief Complaint And Reason For Visit From encounter dated '08/31/2023 10:45'. de (chief complaint). Description: de Reason For Referral Reason For Referral No Information Plan Of Treatment Date Type Action Status Goal Depression screening. Due on due Goal PRAPARE ASSESSMENT. Due on M due Goal Hepatitis C screening. Due o n due Goal Tdap. Due on due Goal RLP. Due on due Goal Tdap Vaccine. Due on 2023 due Goal Influenza vaccine. Due on Ma due Goal Unhealthy drug use screening . Due on due Goal PAP. Due on due Goal Tdap Vaccine. Due on 2023 due Goal RLP. Due on due Goal Depression screening. Due on due Goal Influenza vaccine. Due on Ap due Goal Unhealthy drug use screening . Due on due Goal Tdap. Due on due Goal PRAPARE ASSESSMENT. Due on A due Goal Hepatitis C screening. Due o n due Goal PAP. Due on due Goal PAP. Due on due Goal Tdap. Due on due Goal Unhealthy drug use screening . Due on due Goal Tdap Vaccine. Due on 2023 due Goal Hepatitis C screening. Due o n due Goal Influenza vaccine. Due on due Goal PRAPARE ASSESSMENT. Due on A due Goal RLP. Due on due Goal Depression screening. Due on due Goal Dietary management education , guidance, and counseling completed Goal RLP. Due on due Goal PRAPARE ASSESSMENT. Due on S due Goal PAP. Due on due Goal Tdap. Due on due Goal Tdap Vaccine. Due on 2022 due Goal Influenza vaccine. Due on Se due Goal Depression screening. Due on due Goal Influenza vaccine. Due on Se due Goal Depression screening. Due on due Goal RLP. Due on due Goal Tdap Vaccine. Due on 2022 due Goal PRAPARE ASSESSMENT. Due on S ep due Goal PAP. Due on due Goal Tdap. Due on due Goal PAP. Due on due Goal Tdap. Due on due Goal Influenza vaccine. Due on Se due Goal Depression screening. Due on due Goal RLP. Due on due Goal PRAPARE ASSESSMENT. Due on S due Goal Tdap Vaccine. Due on 2022 due Goal Influenza vaccine. Due on Au due Goal Tdap. Due on due Goal Hep A. Due on du e Goal PAP. Due on due Goal Tdap Vaccine. Due on 2022 due Goal PRAPARE ASSESSMENT. Due on A due Goal RLP. Due on due Goal Depression screening. Due on due History Of Present Illness Encounter Date Complaint History Of Prese nt Illness de de dl dl PA PA fill fill fill DN dn Functional Status Date Functional Assessmen t No Information Instructions Date Instruction Additional Infor natalia Dietary management e ducation, guidance, and counseling Related to Body mass index [BMI] 28.0-28.9, adult Giving encouragement to exercise Related to Body mass index [BMI] 28.0-28.9, adult Assessments Type Assessment Date No Information Patient Care Teams Name Effective Dates (start - stop) Status Members No Information
--- OUTSIDE RECORDS SUMMARY | 2025-03-19 11:00 | XMS_ITS | Encounter Summary ---
Author Organization [facility] Address [address] [place] [address] Care Team Providers Care Compounder Name Role Phone Amanda Ford FOREST ECOLOGIST Primary Care Provider Reason for Visit * ReasonCommentsRoutine Visit Encounter Details DateTypeDepartmentCare Team (Latest Contact Info)Xmebtklvoig25/02/2025 11:00 AM ESTRoutine [facility] [address] [facility] [place] [address] Les Martinez DO [address] [facility] [address] [place], [place] [phone] 35 weeks gestation of ([facility]); Third trimester ([facility]); H/O gastric sleeve; Thyroid disease; Sore throat; Upper respiratory tract infection, unspecified type Social History Tobacco UseTypesPacks/DayYears UsedDateSmoking Tobacco: FormerCigarettes0.53 Quit: 05/24/2024Smokeless Tobacco: NeverAlcohol UseStandard Drinks/WeekComments Not Currently0 (1 standard drink = 0.6 oz pure alcohol)caffeine: 1-2 cups per day teaPHQ-2AnswerDate RecordedPatient Health Questionnaire-2 Vgedl737 Estimated Date of EugujgetGuuhlqhcYbf37/06/2026ased on Est. Date of ConceptionSex and Gender InformationValueDate RecordedSex Assigned at Nzekcj6201/19/2023 8:10 PM EDTLegal XmnAajhqv70/02/2023 9:50 PM EDTGender Identity Jyjxzo6801/19/2023 8:10 PM EDTSexual OrientationNot on fileTravel HistoryTravel StartTravel WwcIwbhtyx62/22/960264/documented as of this encounter Last Filed Vital Signs Vital SignReadingTime TakenCommentsBlood Lupcznyf205/7003/19/2025 11:15 AM EST Pulse--Temperature--Respiratory Rate--Oxygen Saturation--Inhaled Oxygen Concentration--Mujesv343 kg (304 lb 6.4 oz)03/19/2025 11:15 AM ESTHeight--Body Mass Index42.46008/22/2024 10:04 AM EDTdocumented in this encounter Progress Notes * Alana Abram, YANDEL - 03/19/2025 11:00 AM EST Reason for Appointment: Patient ID: Jaz Sanders is a 30 y.o. female who presents for Routine Visit Patient presents today for Return OB appointment. MEDICATIONS Current Outpatient Medications Medication Instructions docusate sodium (Colace) 100 MG capsule Every 24 hours lamoTRIgine (LAMICTAL) 200 mg, Daily RT lansoprazole (PREVACID) 30 mg, Daily levothyroxine (SYNTHROID, LEVOXYL) 50 mcg, Oral, Daily before breakfast MAGnesium-Oxide 400 mg, Daily ProFe 391.3 (180 Fe) MG capsule TAKE [...] Ambulatory Problems Diagnosis Date Noted Anovulation 11/28/2023 Thyroid disease 03/06/2025 H/O gastric sleeve 03/06/2025 33 weeks gestation of ([facility]) 03/06/2025 Third trimester ([facility]) 03/06/2025 Resolved Ambulatory Problems Diagnosis Date Noted No Resolved Ambulatory Problems Past Medical History: Diagnosis Date Abnormal results of thyroid function studies ADD (attention deficit disorder) Anemia Bariatric surgery status Bipolar disorder (HCC) Dysmenorrhea Female infertility Functional enuresis GERD (gastroesophageal reflux disease) Pee thyroiditis History of transfusion Hypothyroidism Irregular menses Nontoxic goiter, unspecified Ovarian cyst Polycystic ovary syndrome Smoker Urinary incontinence Urinary tract infection Vitamin D deficiency HISTORY PAST MEDICAL HISTORY SOCIAL HISTORY Past Medical History: Diagnosis Date Abnormal results of thyroid function studies ADD (attention deficit disorder) Anemia hospitalization history (06/10/22) Bariatric surgery status Bipolar disorder (HCC) Dysmenorrhea Female infertility Functional enuresis GERD (gastroesophageal reflux disease) Epe thyroiditis History of transfusion Hypothyroidism Irregular menses Nontoxic goiter, unspecified Ovarian cyst Polycystic ovary syndrome Smoker Thyroid disease Urinary incontinence Urinary tract infection Vitamin D deficiency Social History Tobacco Use Smoking status: Former Current packs/day: 0.00 Average packs/day: 0.5 packs/day for 3.0 years (1.5 ttl pk-yrs) Types: Cigarettes Quit date: 05/24/2024 Years since quittin.8 Smokeless tobacco: Never Substance Use Topics Alcohol [...] nursing note reviewed. Exam conducted with a financial compliance manager present. Vitals: Estimated body mass index is 42.46 kg/m?? as calculated from the following: Height as of 08/22/24: 5' 11 . Weight as of this encounter: 304 lb 6.4 oz. BP: 122/70 No LMP recorded. Patient is . Assessment/Plan ICD-10-CM 1. 35 weeks gestation of ([facility]) Z3A.35 POCT urinalysis dipstick manually resulted 2. Third trimester ([facility]) Z34.93 POCT urinalysis dipstick manually resulted 3. H/O gastric sleeve Z90.3 4. Thyroid disease E07.9 Assessment/Plan Return OB: Patient presents today for a routine obstetrics appointment. Patient is currently 35w0d . Patient states she is doing well but has complaints of being tired due to current . Patient has verbalizes frequent movement. labor precautions was discussed/given and patient was instructed to perform kick counts three times a day. Orders Placed This Encounter Procedures POCT urinalysis dipstick manually resulted Follow Up: Patient is to return to office in 1 week for routine OB appointment. Documented by Alana Valverde LPN on behalf of: Les Martinez DO * Roxanne Joel LPN - 03/19/2025 11:00 AM EST Patient called and voiced that Z-kristin was to be sent in at appointment earlier today. Contacted patient and informed her prescription was being sent. PVU--ss documented in this encounter Plan of Treatment DateTypeDepartmentCare Team (Latest Contact Info)Wxetcvhzuoc46/09/2025 1:50 PM ESTRoutine [facility] [address] [place] [address] [place] [address] Jojo Ames PA [address] [place] [address] 08/21/2025 9:30 AM EDTOffice Visit [facility] [address] [place] [address] Darleen Sinclair MD [address] [place] [address] documented as of this encounter Goals GoalPatient Goal TypeAssociated ProblemsRecent ProgressPatient-Stated?Author Reminders Care PlanOB RemindersNoOpen Scheduling, Backgrounddocumented as of this encounter Procedures Procedure NamePriorityDate/TimeAssociated DiagnosisCommentsPOCT URINALYSIS QBSFDEPUTmncqfk00/02/2025 11:25 AM EST 35 weeks gestation of ([facility]) Third trimester ([facility]) documented in this encounter Results * POCT urinalysis dipstick manually resulted (03/19/2025 11:25 AM EST)Component ValueRef RangeTest MethodAnalysis TimePerformed AtPathologist SignatureColor, UAYellowClarity, UAClearGlucose, UANegativeNegative - 2000(110) ++++ mg/dL Bilirubin, UANegativeNegative - 4(70) +++ mg/dLKetones, UANegativeNegative - 160(16) ++++ mg/dLSpec Grav, UA1.0251 - 1.03Blood, UANegativeNegative - 50 Yehuda/mcLpH, UA6.55 - 9Protein, UANegativeNegative - 2000(20) ++++ mg/dL Urobilinogen, UA1.00.2 - 12 mg/dLLeukocytes, UANegativeNegative - 500+++ Kourtney/mcLNitrite, UANegativeNegative - PositiveSpecimen (Source)Anatomical Location / LateralityCollection Method / VolumeCollection TimeReceived Time Urine03/19/2025 11:25 AM EST Narrative Authorizing ProviderResult TypeResult StatusCorey Juan DOPOINT OF CARE TEST ENTER/EDIT ORDERABLESFinal Result documented in this encounter Visit Diagnoses Diagnosis 35 weeks gestation of ([facility]) Third trimester ([facility]) state, incidental H/O gastric sleeve Thyroid disease Unspecified disorder of thyroid Sore throat Acute pharyngitis Upper respiratory tract infection, unspecified type documented in this encounter Additional Health Concerns Active ProblemsNoted DateDiagnosed DateOB Fgqeevtyo84/07/2025 documented as of this encounter Care Teams Team MemberRelationshipSpecialtyStart DateEnd Date Amanda Ford NP [facility] [place] [address] PCP - GeneralFamily Fxpyixko92/2/23documented as of this encounter
--- OUTSIDE RECORDS SUMMARY | 2025-03-22 20:43 | XMS_ITS | Encounter Summary ---
Author Organization [facility] Address [address] [place] [address] Care Team Providers Care Pre Sales Architect Name Role Phone Amanda Ford REFRACTORY PRODUCTS SUPERVISOR Primary Care Provider Encounter Details DateTypeDepartmentCare Team (Latest Contact Info)Vkqmulseexv95/25/2025Patient Outreach [facility] [address] [place] [phone] Jojo Be, YANDEL [address], [place] [phone] Social History Tobacco UseTypesPacks/DayYears UsedDateSmoking Tobacco: FormerCigarettes0.53 Quit: 05/24/2024Smokeless Tobacco: NeverAlcohol UseStandard Drinks/WeekComments Not Currently0 (1 standard drink = 0.6 oz pure alcohol)caffeine: 1-2 cups per day teaPHQ-2AnswerDate RecordedPatient Health Questionnaire-2 Sjgyj107 Estimated Date of ZowtuxaxTgpyqdzxZrc55/06/2026ased on Est. Date of ConceptionSex and Gender InformationValueDate RecordedSex Assigned at Tljvle0501/19/2023 8:10 PM EDTLegal QlqUizwju28/02/2023 9:50 PM EDTGender Identity Mtfzel6901/19/2023 8:10 PM EDTSexual OrientationNot on fileTravel HistoryTravel StartTravel MgrRwdpmxo50documented as of this encounter Progress Notes * Jojo Be LPN - 03/12/2025 9:53 AM EST Monthly outreach. Call to pt X2, LVM documented in this encounter Plan of Treatment DateTypeDepartmentCare Team (Latest Contact Info)Erbszbmjnhf91/09/2025 1:50 PM ESTRoutine [facility] [address] [place] [address] Jojo Ames PA [address] [facility] [address] [place], [place] [address] 08/21/2025 9:30 AM EDTOffice Visit [facility] [place] [facility] [address] [place] [address] Darleen Sinclair MD [address] [place] [address] documented as of this encounter Goals GoalPatient Goal TypeAssociated ProblemsRecent ProgressPatient-Stated?Author Reminders Care PlanOB RemindersNoOpen Scheduling, Backgrounddocumented as of this encounter Visit Diagnoses Not on filedocumented in this encounter Additional Health Concerns Active ProblemsNoted DateDiagnosed DateOB Gowtjdcvq61/07/2025 documented as of this encounter Care Teams Team MemberRelationshipSpecialtyStart DateEnd Date Amanda Ford NP [address] [facility] [address] [place] [facility]11 PCP - GeneralFamily Ihkvevbk27/2/23documented as of this encounter
--- OUTSIDE RECORDS SUMMARY | 2025-03-22 20:43 | XMS_ITS | Encounter Summary ---
Author Organization [facility] Address [address] [place] [address] Care Team Providers Care Accounting Clerks Supervisor Name Role Phone Amanda Hewitt VISITOR SERVICES REPRESENTATIVE Primary Care Provider Encounter Details DateTypeDepartmentCare Team (Latest Contact Info)Dtpiiwctwmv22/04/2025Clinisync Result Encounter [facility] External Department Unsolicited Basim Martinez, DO [address] [facility] [address] [place], [place] [phone] Social History Tobacco UseTypesPacks/DayYears UsedDateSmoking Tobacco: FormerCigarettes0.53 Quit: 05/24/2024Smokeless Tobacco: NeverAlcohol UseStandard Drinks/WeekComments Not Currently0 (1 standard drink = 0.6 oz pure alcohol)caffeine: 1-2 cups per day teaPHQ-2AnswerDate RecordedPatient Health Questionnaire-2 Fhkrl281 Estimated Date of HjzaxtllDzbwzexmTda50/06/2026ased on Est. Date of ConceptionSex and Gender InformationValueDate RecordedSex Assigned at Myshqm4301/19/2023 8:10 PM EDTLegal RefHaduzo41/02/2023 9:50 PM EDTGender Identity Pawhpr7301/19/2023 8:10 PM EDTSexual OrientationNot on fileTravel HistoryTravel StartTravel McdVywykwp19/22/202511/documented as of this encounter Plan of Treatment DateTypeDepartmentCare Team (Latest Contact Info)Aektjwgpron02/09/2025 1:50 PM ESTRoutine [facility] [address] [place] [address] Jojo Ames PA [address] [facility] [place] [address] 08/21/2025 9:30 AM EDTOffice Visit [facility] [place] [facility] [address] [place] [address] Darleen Sinclair MD [address] [place] [address] documented as of this encounter Goals GoalPatient Goal TypeAssociated ProblemsRecent ProgressPatient-Stated?Author Reminders Care PlanOB RemindersNoOpen Scheduling, Backgrounddocumented as of this encounter Procedures Procedure NamePriorityDate/TimeAssociated DiagnosisCommentsUS OB BPP W NON-MBKPGO4603/21/2025 3:52 PM EST documented in this encounter Results * US OB BPP W NON-STRESS (03/21/2025 3:52 PM EST)Anatomical Region LateralityModalityOtherSpecimen (Source)Anatomical Location / Laterality Collection Method / VolumeCollection TimeReceived Time03/21/2025 3:52 PM EST Narrative 03/21/2025 3:54 PM EST [facility] ?[address] ? [place] [address] ? Ultrasound Report ? Signed ? Patient: GUZMAN DEL CID ?MR#: [id number] ?? : 1995 ?Acct:[id number] ?? Age/Sex: 30 / F ?ADM Date: 03/21/25 ?? Loc: [facility] ? Attending Dr: Basim Martinez D.O. ? Ordering Physician: Basim Martinez D.O. ?? Date of Service: 03/21/25 ?? Procedure(s): US OB BPP w non-stress ?? Accession Number(s): [id number] ? cc: Basim Martinez D.O.; AMANDA HEWITT ? [facility] ? [address] ? [place] [address] ? Patient Name: ?? GUZMAN DEL CID ? MRN: [facility]:[id number] ? date: 1995 ?Sex: F ?? Assigned Patient Location: [facility]O ?? Current Patient Location: ? Accession/Order Number: [id number] ?? Exam Date: 03/21/2025 ??15:00 ?Report Date: 03/21/2025 ??15:52 ? At the request of: ?? BASIM ??JUAN ??DO ? Procedure: ??US OB BPP w non-stress ? Biophysical profile. ? Reason for exam: Thyroid deficiency decreased movement ? COMPARISON: 03/18/2025 ? TECHNIQUE: Transabdominal imaging of the gravid uterus was obtained. ? FINDINGS: The shoder filler reports a BPP of 8 out of 8. ??STARR is normal at 14.4 ?? cm. ?? heart rate 136 bpm. ? US/US OB BPP w non-stress ?? IMPRESSION: BPP 8 out of 8. ? Impression dictated by: Sravan Dickinson Jr., DRenaeORenae ??03/21/2025 3:52 PM ? Dictation Location: [facility]-- ? Electronically authenticated by: [id number] ??Y ?? Date: 03/21/2025 ??15:52 ? Dictated By: ?Sravan Dickinson M.D. ? Signed By: ?03/21/25 1554 ? DD/ 1552 ? TD/TT: ? Supercalender Operator Helper: Procedure Note Radiology, Radiologist, MD - 03/22/2025 [place] [address] Ultrasound Report Signed Patient: GUZMAN DEL CID EMR#: [id number] : 1995Acct:[id number] Age/Sex: 30 / FADM Date: 03/21/25 Loc: [facility]O Attending Dr: Basim Martinez D.O. Ordering Physician: Basim Martinez D.O. Date of Service: 03/21/25 Procedure(s): US OB BPP w non-stress Accession Number(s): [id number] cc: Basim Martinez D.O.; AMANDA HEWITT [facility] [address] [place], [place] [address] Patient Name: GUZMAN DEL CID MRN: [facility]:[id number] date: 1995 Sex: F [place] [facility] [place] Patient Location: Accession/Order Number: [id number] Exam Date: 03/21/2025 15:00 Report Date: 03/21/2025 15:52 At the request of: BASIM MARTINEZ DO Procedure: US OB BPP w non-stress Biophysical profile. Reason for exam: Thyroid deficiency decreased movement COMPARISON: 03/18/2025 TECHNIQUE: Transabdominal imaging of the gravid uterus was obtained. FINDINGS: The shoder filler reports a BPP of 8 out of 8. STARR is normal at14.4 cm. heart rate 136 bpm. US/US OB BPP w non-stress IMPRESSION: BPP 8 out of 8. Impression dictated by: Sravan Dickinson Jr., D.O. 03/21/2025 3:52 PM Dictation Location: [place] [address] Electronically authenticated by: [id number] Y Date: 5:52 Dictated By: Sravan Dickinson M.D. Signed By:03/21/25 1554 DD/ 51 TD/TT: Supercalender Operator Helper: Authorizing ProviderResult TypeResult StatusCorey Juan DOCLINISYNC IMAGINGFinal Result documented in this encounter Visit Diagnoses Not on filedocumented in this encounter Additional Health Concerns Active ProblemsNoted DateDiagnosed DateOB Gsxdngsam76/07/2025 documented as of this encounter Care Teams Team MemberRelationshipSpecialtyStart DateEnd Date Amanda Hewitt NP [address] [facility] [address] [place] [id number] PCP - GeneralFamily Szokjyri73/2/23documented as of this encounter
--- OUTSIDE RECORDS SUMMARY | 2025-03-22 20:43 | XMS_ITS | Encounter Summary ---
Author Organization [facility] Address [address] [place] [address] Care Team Providers Care Airport Tower Controller Name Role Phone Amanda Ford LANDFILL GAS PLANT FIELD TECHNICIAN Primary Care Provider Encounter Details DateTypeDepartmentCare Team (Latest Contact Info)Sjnfxquhtok45/03/2025Travel Social History Tobacco UseTypesPacks/DayYears UsedDateSmoking Tobacco: FormerCigarettes0.53 Quit: 05/24/2024Smokeless Tobacco: NeverAlcohol UseStandard Drinks/WeekComments Not Currently0 (1 standard drink = 0.6 oz pure alcohol)caffeine: 1-2 cups per day teaPHQ-2AnswerDate RecordedPatient Health Questionnaire-2 Hamzl945 Estimated Date of XmqqaeawNxpjzennStl37/06/2026ased on Est. Date of ConceptionSex and Gender InformationValueDate RecordedSex Assigned at Iuowai3701/19/2023 8:10 PM EDTLegal EapXpfhwo20/02/2023 9:50 PM EDTGender Identity Tgtdyk9801/19/2023 8:10 PM EDTSexual OrientationNot on fileTravel HistoryTravel StartTravel RwcYuhwgue26/22/234138/documented as of this encounter Plan of Treatment DateTypeDepartmentCare Team (Latest Contact Info)Cvhwqqfvoqo72/09/2025 1:50 PM ESTRoutine [facility] [address] [place] [address] [place] [address] Jojo Ames PA [address] [place] [address] [place] [address] 08/21/2025 9:30 AM EDTOffice Visit [facility] [address] [place] [address] Darleen Sinclair MD [address] [place] [address] documented as of this encounter Goals GoalPatient Goal TypeAssociated ProblemsRecent ProgressPatient-Stated?Author Reminders Care PlanOB RemindersNoOpen Scheduling, Backgrounddocumented as of this encounter Visit Diagnoses Not on filedocumented in this encounter Additional Health Concerns Active ProblemsNoted DateDiagnosed DateOB Wqipkvhxj57/07/2025 documented as of this encounter Care Teams Team MemberRelationshipSpecialtyStart DateEnd Date Amanda Ford NP [facility] [facility] [place] [address] PCP - GeneralFamily Nneajoja92/2/23documented as of this encounter
--- OUTSIDE RECORDS SUMMARY | 2025-03-22 20:43 | XMS_ITS | Clinical Summary ---
Author Organization [facility] Address [address] [facility] [address], [address] [place] [address] Care Team Providers Care Special Events Director Name Role Phone Robin Marquez MD Primary Care Provider [phone] Allergies No known active allergies Medications MedicationSigDispense QuantityRefillsLast FilledStart DateEnd DateStatus levothyroxine (SYNTHROID) 175 MCG tablet TAKE 2 TABLETS BY MOUTH ONCE [id number] ALPRAZolam (XANAX) 0.5 MG tablet TAKE 1 [...] ProblemNoted DateDiagnosed DateRight upper quadrant abdominal pain03/30/2021 Yhuiogsuvsn25/13/2021Orthostatic ihqkawcwk95/13/2021Obesity (BMI 30-39.9) 02/09/2021Obesity, Class III, BMI 40-49.9 (morbid obesity)11/10/2020hronic low back pain11/10/2020tatus post laparoscopic sleeve yiuarxrapco37/19/2021Vitamin D wacbtfnysh45/27/7564Jvgibqmdyqbvvu32/20/2019Bipolar disease, naicwhd9012/05/2018 Plantar fasciitis, dzqwnvfli61/20/2019Marijuana use12/05/2018 Resolved Problems ProblemNoted DateDiagnosed DateResolved DateMorbid obesity with BMI of 50.0- 59.9, adultMorbid obesity with BMI of 60.0-69.9, adult Family History Medical HistoryRelationNameCommentsHigh Blood PressureFatherOtherMotherOther SisterRelationNameStatusCommentsFatherAlivethyroidMotherAlivethyroidSisterOther thyroid Social History Tobacco UseTypesPacks/DayYears UsedDateSmoking Tobacco: NeverSmokeless Tobacco: NeverAlcohol UseStandard Drinks/WeekCommentsNo0 (1 standard drink = 0.6 oz pure alcohol)CommentsNoSex and Gender InformationValueDate RecordedSex Assigned at BirthNot on fileLegal HmrQfpxec47/26/2015 7:37 PM ESTGender Identity Not on fileSexual OrientationNot on file Last Filed Vital Signs Vital SignReadingTime TakenCommentsBlood Naxlqqso224/6001/ 2:44 PM EST Cxlji4570/27/2022 2:44 PM ASCUjafpjqytsi77.7 ??C (98.1 ??F)03/30/2021 5:10 PM ESTRespiratory Uvxd4573 5:10 PM ESTOxygen Obcochxium92%03/30/2021 5:10 PM ESTInhaled Oxygen Concentration--Jibohi02 kg (205 lb)09/04/2021 9:27 AM EDT Xignar824.9 cm (6')09/04/2021 9:27 AM EDTBody Mass Index27.8009/04/2021 9:27 AM EDT Plan of Treatment Not on file Insurance Advance Directives * Full Code (Latest Code Status on File) Date ActivatedDate InactivatedComments05/06/2020 4:42 PM05/08/2020 3:13 PM Care Teams Team MemberRelationshipSpecialtyStart DateEnd Date Robin Marquez MD [address] [place] [id number] PCP - GeneralFamily Medicine10/10/18
--- OUTSIDE RECORDS SUMMARY | 2025-03-22 20:43 | XMS_ITS | Encounter Summary ---
Author Organization [facility] Address [address] [place] [address] Care Team Providers Care Silver Brazer Name Role Phone Amanda Ford INSOLE TACK PULLER HAND Primary Care Provider Encounter Details DateTypeDepartmentCare Team (Latest Contact Info)Axhzficvdwy67/05/2025Telephone [facility] [address] [place] [address] [place] [address] Kerrie Babcock MA Social History Tobacco UseTypesPacks/DayYears UsedDateSmoking Tobacco: FormerCigarettes0.53 Quit: 05/24/2024Smokeless Tobacco: NeverAlcohol UseStandard Drinks/WeekComments Not Currently0 (1 standard drink = 0.6 oz pure alcohol)caffeine: 1-2 cups per day teaPHQ-2AnswerDate RecordedPatient Health Questionnaire-2 Bxdqc225 Estimated Date of KctzhjuoUwfftwglJcs22/06/2026ased on Est. Date of ConceptionSex and Gender InformationValueDate RecordedSex Assigned at Rtedgi2901/19/2023 8:10 PM EDTLegal BihJwfnaq27/02/2023 9:50 PM EDTGender Identity Hjwgvo0101/19/2023 8:10 PM EDTSexual OrientationNot on fileTravel HistoryTravel StartTravel NauXccmgbb72/22/790169/documented as of this encounter Miscellaneous Notes * Telephone Encounter - Kerrie Babcock MA - 03/22/2025 11:45 AM EST Hi, my name is Jaz Sanders. My birthday is [birth year]. I was just calling because I am not sure ifI need to let Dr. Martinez know or not. But I tested positive for COVID today when I took an at home test. FYI documented in this encounter Plan of Treatment DateTypeDepartmentCare Team (Latest Contact Info)Ykxrxyudrxk86/09/2025 1:50 PM ESTRoutine [facility] [address] [facility] [phone] Jojo Ames PA [address] [facility] [place] [address] 08/21/2025 9:30 AM EDTOffice Visit [facility] [place] [facility] [address] [place] [address] Darleen Sinclair MD [address] [place] [address] documented as of this encounter Goals GoalPatient Goal TypeAssociated ProblemsRecent ProgressPatient-Stated?Author Reminders Care PlanOB RemindersNoOpen Scheduling, Backgrounddocumented as of this encounter Visit Diagnoses Not on filedocumented in this encounter Additional Health Concerns Active ProblemsNoted DateDiagnosed DateOB Legfhdziz97/07/2025 documented as of this encounter Care Teams Team MemberRelationshipSpecialtyStart DateEnd Date Amanda Ford NP [facility] [facility] [address] PCP - GeneralFamily Ydghqwgx24/2/23documented as of this encounter
--- OUTSIDE RECORDS SUMMARY | 2025-03-22 20:43 | XMS_ITS | Encounter Summary ---
Author Organization [facility] Address [address] [place] [address] Care Team Providers Care Continuous Absorption Process Operator Name Role Phone Amanda Ford JOINT YARNER Primary Care Provider Encounter Details DateTypeDepartmentCare Team (Latest Contact Info)Xbawsfxrvmg13/25/2025Travel Social History Tobacco UseTypesPacks/DayYears UsedDateSmoking Tobacco: FormerCigarettes0.53 Quit: 05/24/2024Smokeless Tobacco: NeverAlcohol UseStandard Drinks/WeekComments Not Currently0 (1 standard drink = 0.6 oz pure alcohol)caffeine: 1-2 cups per day teaPHQ-2AnswerDate RecordedPatient Health Questionnaire-2 Hhddr432 Estimated Date of PeokstxeTpzdemldIos59/06/2026ased on Est. Date of ConceptionSex and Gender InformationValueDate RecordedSex Assigned at Pxkjwn6101/19/2023 8:10 PM EDTLegal UeeJuqfpc67/02/2023 9:50 PM EDTGender Identity Jtfrgo4401/19/2023 8:10 PM EDTSexual OrientationNot on fileTravel HistoryTravel StartTravel IqcFzqoeln58/22/880295/documented as of this encounter Plan of Treatment DateTypeDepartmentCare Team (Latest Contact Info)Ttifemfpxuw29/09/2025 1:50 PM ESTRoutine [facility] [address] [place] [address] [place] [address] Jojo Ames PA [address] [place] [address] [place] [address] 08/21/2025 9:30 AM EDTOffice Visit [facility] [place] [facility] [address] [place] [address] Darleen Sinclair MD [address] [place] [address] documented as of this encounter Goals GoalPatient Goal TypeAssociated ProblemsRecent ProgressPatient-Stated?Author Reminders Care PlanOB RemindersNoOpen Scheduling, Backgrounddocumented as of this encounter Visit Diagnoses Not on filedocumented in this encounter Additional Health Concerns Active ProblemsNoted DateDiagnosed DateOB Ytbpjcsdg34/07/2025 documented as of this encounter Care Teams Team MemberRelationshipSpecialtyStart DateEnd Date Amanda Ford NP [facility] [facility] [place] [address] PCP - GeneralFamily Eidjuywx29/2/23documented as of this encounter
--- OUTSIDE RECORDS SUMMARY | 2025-03-22 20:43 | XMS_ITS | Encounter Summary ---
Author Organization [facility] Address [address] [place] [address] Care Team Providers Care Cargo Services Coordinator Name Role Phone Amanda Ford METAL GAUGE MAKER Primary Care Provider Encounter Details DateTypeDepartmentCare Team (Latest Contact Info)Grvbahxijkk44/02/2025Bamboo flowsheet [facility] [address] [facility] [place] [address] Les Martinez DO [address] [facility] [address], [facility] Social History Tobacco UseTypesPacks/DayYears UsedDateSmoking Tobacco: FormerCigarettes0.53 Quit: 05/24/2024Smokeless Tobacco: NeverAlcohol UseStandard Drinks/WeekComments Not Currently0 (1 standard drink = 0.6 oz pure alcohol)caffeine: 1-2 cups per day teaPHQ-2AnswerDate RecordedPatient Health Questionnaire-2 Qvgxa368 Estimated Date of YjbntbbfPbomuvjzUto20/06/2026Based on Est. Date of ConceptionSex and Gender InformationValueDate RecordedSex Assigned at Xmsxfm2301/19/2023 8:10 PM EDTLegal UjuHgvbed36/02/2023 9:50 PM EDTGender Identity Sadztm6401/19/2023 8:10 PM EDTSexual OrientationNot on fileTravel HistoryTravel StartTravel YwoBzhwzby53/22/42920005/16/2024documented as of this encounter Plan of Treatment DateTypeDepartmentCare Team (Latest Contact Info)Vmoutpgbuxx99/09/2025 1:50 PM ESTRoutine [facility] [address] [facility] [place] [address] Jojo Ames PA [address] [facility] [address] [place], [place] [address] 08/21/2025 9:30 AM EDTOffice Visit [facility] [place] [facility] [address] [place] [address] Darleen Sinclair MD [address] [place] [address] documented as of this encounter Goals GoalPatient Goal TypeAssociated ProblemsRecent ProgressPatient-Stated?Author Reminders Care PlanOB RemindersNoOpen Scheduling, Backgrounddocumented as of this encounter Visit Diagnoses Not on filedocumented in this encounter Additional Health Concerns Active ProblemsNoted DateDiagnosed DateOB Pmofpyrcg34/07/2025 documented as of this encounter Care Teams Team MemberRelationshipSpecialtyStart DateEnd Date Amanda Ford NP [address] [facility] [place] [address] PCP - GeneralFamily Anzpdbip48/2/23documented as of this encounter
--- OUTSIDE RECORDS SUMMARY | 2025-03-22 20:43 | XMS_ITS | Encounter Summary ---
Author Organization [facility] Address [address] [place] [address] Care Team Providers Care Manager Massage Department Name Role Phone Amanda Hewitt CONTINUOUS PROCESS TANNER ROTARY DRUM Primary Care Provider Encounter Details DateTypeDepartmentCare Team (Latest Contact Info)Xgxaxnohgal07/01/2025Clinisync Result Encounter [facility] External Department Unsolicited Basim Martinez, DO [address] [place], [place] [id number] Social History Tobacco UseTypesPacks/DayYears UsedDateSmoking Tobacco: FormerCigarettes0.53 Quit: 05/24/2024Smokeless Tobacco: NeverAlcohol UseStandard Drinks/WeekComments Not Currently0 (1 standard drink = 0.6 oz pure alcohol)caffeine: 1-2 cups per day teaPHQ-2AnswerDate RecordedPatient Health Questionnaire-2 Sdfqe167 Estimated Date of OrmmbeoiLiamwlqwKii31/06/2026ased on Est. Date of ConceptionSex and Gender InformationValueDate RecordedSex Assigned at Xzocrl3001/19/2023 8:10 PM EDTLegal FfdKslqnj50/02/2023 9:50 PM EDTGender Identity Ssvkku9401/19/2023 8:10 PM EDTSexual OrientationNot on fileTravel HistoryTravel StartTravel FkqGrgcgfb74/22/202511/documented as of this encounter Plan of Treatment DateTypeDepartmentCare Team (Latest Contact Info)Qfykxbfjxsu58/09/2025 1:50 PM ESTRoutine [facility] [address] [place] [address] Jojo Ames PA [address] [place] [address] 08/21/2025 9:30 AM EDTOffice Visit [facility] [place] [facility] [address] [place] [address] Darleen Sinclair MD [address] [place] [address] documented as of this encounter Goals GoalPatient Goal TypeAssociated ProblemsRecent ProgressPatient-Stated?Author Reminders Care PlanOB RemindersNoOpen Scheduling, Backgrounddocumented as of this encounter Procedures Procedure NamePriorityDate/TimeAssociated DiagnosisCommentsUS OB BPP W NON-AJRGHD5803/18/2025 4:09 PM EST documented in this encounter Results * US OB BPP W NON-STRESS (03/18/2025 4:09 PM EST)Anatomical Region LateralityModalityOtherSpecimen (Source)Anatomical Location / Laterality Collection Method / VolumeCollection TimeReceived Time03/18/2025 4:09 PM EST Narrative 03/18/2025 4:12 PM EST [facility] ?[address] ? [place] [address] ? Ultrasound Report ? Signed ? Patient: GUZMAN DEL CID Colt ?MR#: [id number] ?? : 1995 ?Acct:[id number] ?? Age/Sex: 30 / F ?ADM Date: 03/18/25 ?? Loc: US ? Attending Dr: Basim Martinez D.O. ? Ordering Physician: Basim Martinez D.O. ?? Date of Service: 03/18/25 ?? Procedure(s): US OB BPP w non-stress ?? Accession Number(s): [id number] ? cc: Basim Martinez D.O.; AMANDA HEWITT ? [facility] ? [address] ? [place] [address] ? Patient Name: ?? GUZMAN DEL CID ? MRN: [facility]:[id number] ? date: 1995 ?Sex: F ?? Assigned Patient Location: ?? Current Patient Location: ? Accession/Order Number: [id number] ?? Exam Date: 03/18/2025 ??14:03 ?Report Date: 03/18/2025 ??16:09 ? At the request of: ?? BASIM ??JUAN ??DO ? Procedure: ??US OB BPP w non-stress ? Biophysical profile. ? Reason for exam: Thyroid stimulating hormone deficiency ? COMPARISON: 2025 ? TECHNIQUE: Transabdominal imaging of the gravid uterus was obtained. ? FINDINGS: The loading rack supervisor reports a BPP of 8 out of 8. ??STARR is normal at 18 ?? cm. ?? heart rate 141 bpm. ? US/US OB BPP w non-stress ?? IMPRESSION: BPP 8 out of 8. ? Impression dictated by: Sravan Dickinson Jr., D.ORenae ??03/18/2025 4:09 PM ? Dictation Location: [facility]- ? Electronically authenticated by: [id number] ??Y ?? Date: 03/18/2025 ??16:09 ? Dictated By: ?Sravan Dickinson M.D. ? Signed By: ?03/18/25 1612 ? DD/ 1609 ? TD/TT: ? Vb Net Programmer: Procedure Note Radiology, Radiologist, MD - 03/19/2025 [place] [address] Ultrasound Report Signed Patient: GUZMAN DEL CID EMR#: [id number] : 1995Acct:[id number] Age/Sex: 30 / FADM Date: 03/18/25 Loc: US Attending Dr: Basim Martinez D.O. Ordering Physician: Basim Martinez D.O. Date of Service: 03/18/25 Procedure(s): US OB BPP w non-stress Accession Number(s): [id number] cc: Basim Martinez D.O.; AMANDA HEWTIT [facility] [address] [place], [place] [address] Patient Name: GUZMAN DEL CID MRN: [id number] date: 1995 Sex: F Assigned Patient Location: Current Patient Location: Accession/Order Number: [id number] Exam Date: 03/18/2025 14:03 Report Date: 03/18/2025 16:09 At the request of: BASIM MARTINEZ DO Procedure: US OB BPP w non-stress Biophysical profile. Reason for exam: Thyroid stimulating hormone deficiency COMPARISON: 2025 TECHNIQUE: Transabdominal imaging of the gravid uterus was obtained. FINDINGS: The loading rack supervisor reports a BPP of 8 out of 8. STARR is normal at18 cm. heart rate 141 bpm. US/US OB BPP w non-stress IMPRESSION: BPP 8 out of 8. Impression dictated by: Sravan Dickinson Jr., D.O. 03/18/2025 4:09 PM Dictation Location: [place] [address] Electronically authenticated by: [id number] Y Date: 6:09 Dictated By: Sravan Dickinson M.D. Signed By:03/18/25 1612 DD/ 1609 TD/TT: Vb Net Programmer: Authorizing ProviderResult TypeResult StatusCorey Juan DOCLINISYNC IMAGINGFinal Result documented in this encounter Visit Diagnoses Not on filedocumented in this encounter Additional Health Concerns Active ProblemsNoted DateDiagnosed DateOB Cuhkufazr40/07/2025 documented as of this encounter Care Teams Team MemberRelationshipSpecialtyStart DateEnd Date Amanda Hewitt NP [address] [facility] [address] [place] [id number] PCP - GeneralFamily Gahnpeuo57/2/23documented as of this encounter
--- OUTSIDE RECORDS SUMMARY | 2025-03-22 20:43 | XMS_ITS | Encounter Summary ---
Author Organization [facility] Address [address] [place] [address] Care Team Providers Care Project Controls Specialist Name Role Phone Amanda Ford [employer] TEACHER Primary Care Provider Encounter Details DateTypeDepartmentCare Team (Latest Contact Info)Qunehnnuved89/03/2025Telephone [facility] [address] [place] [address] [place] [address] Kerrie Babcock MA Social History Tobacco UseTypesPacks/DayYears UsedDateSmoking Tobacco: FormerCigarettes0.53 Quit: 05/24/2024Smokeless Tobacco: NeverAlcohol UseStandard Drinks/WeekComments Not Currently0 (1 standard drink = 0.6 oz pure alcohol)caffeine: 1-2 cups per day teaPHQ-2AnswerDate RecordedPatient Health Questionnaire-2 Fjiuu149 Estimated Date of MfisjwsmNleueckyQuv88/06/2026ased on Est. Date of ConceptionSex and Gender InformationValueDate RecordedSex Assigned at Bklzlm3801/19/2023 8:10 PM EDTLegal JisKuyosn55/02/2023 9:50 PM EDTGender Identity Jollqw3701/19/2023 8:10 PM EDTSexual OrientationNot on fileTravel HistoryTravel StartTravel UjpPybedwt44/22/108321/documented as of this encounter Miscellaneous Notes * Telephone Encounter - Kerrie Babcock MA - 03/20/2025 10:52 AM EST Pt called in requesting albuterol inhaler for possible bronchitis. Ok per Dr. Martinez. Pharmacy confirmed, medication sent. documented in this encounter Plan of Treatment DateTypeDepartmentCare Team (Latest Contact Info)Bfpbyoopmyn13/09/2025 1:50 PM ESTRoutine [facility] [address] [address] Jojo Ames PA [address] [place], [place] [address] 08/21/2025 9:30 AM EDTOffice Visit [facility] [place] [facility] [address] [place] [address] Darleen Sinclair MD [address] [place] [address] documented as of this encounter Goals GoalPatient Goal TypeAssociated ProblemsRecent ProgressPatient-Stated?Author Reminders Care PlanOB RemindersNoOpen Scheduling, Backgrounddocumented as of this encounter Visit Diagnoses Diagnosis Wheezing documented in this encounter Additional Health Concerns Active ProblemsNoted DateDiagnosed DateOB Vpvcpkepj38/07/2025 documented as of this encounter Care Teams Team MemberRelationshipSpecialtyStart DateEnd Date Amanda Ford NP [address] [place] [place] [address] PCP - GeneralFamily Tstjezms62/2/23documented as of this encounter
--- OUTSIDE RECORDS SUMMARY | 2025-03-22 20:44 | XMS_ITS | Clinical Summary ---
Author Organization txtrs tem Address [id number] [address] [place] [address] Care Team Providers Care Blending Tank Tender Name Role Phone No Pcp, No Pcp Primary Care Provider Unavailabl e Allergies Active AllergyReactionsCriticalityNoted DateCommentsNsaids (Non-Steroidal Anti- Inflammatory Drug)10/26/2024 Medications MedicationSigDispense QuantityRefillsLast FilledStart DateEnd DateStatus ht269-qyrh-gwepm acid ( 19) 29 mg iron- 1 [...] ProblemNoted DateDiagnosed DatePrevious gastric bypass affecting , qweyxrtiyd27/20/2025Pregnancy headache in second ucusliwtr87/20/2025 Hypothyroidism affecting in second etsnlbdyk17/20/2025ipolar disease during in second gmiopxyxy41/20/2025Estimated Date of Delivery QzojqrwzOih20/06/2026Based on Other Basis, IUI conception date 07/31/2024 Encounters DateTypeDepartmentCare DzfmUwmaunkwafj07/18/2025 11:12 AM EST - 03/05/2025 11:59 PM ESTHospital Encounter [facility] - [facility]ound [address] [place] [phone] Hypothyroidism affecting in second trimester; headache in second trimester; Previous gastric bypass affecting , antepartum; 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 ([facility] Discharge Disposition: Home03/04/20253056Toreyt48/23/2025Orders Only [facility] 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 [employer] [place] [facility] [place] [address] [facility] [address] [place] [address] Roslyn Griffin RN Hypothyroidism affecting in second trimester (Primary Dx); headache in second trimester; Previous gastric bypass affecting , antepartum; 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 ([facility])02/07/2025Travel 01/04/2025Orders Only Maternal- Medicine at [facility] [address] [facility] [place] [phone] Krystyna Dick RN Previous gastric bypass affecting , antepartum (Primary Dx); Hypothyroidism affecting in second trimester; 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 ([facility] Obesity affecting in second trimester, unspecified obesity type 01/03/2025Telephone Maternal Medicine [place] [address] [facility] [address] [place] [address] Roslyn Griffin RN 01/03/2025Travelfrom Last 3 Months Family History Medical HistoryRelationNameCommentsDiabetesFatherHypertensionFatherThyroid diseaseFatherDiabetesMaternal GrandfatherDepressionMotherObesityMotherSkin cancerMotherThyroid diseaseMotherRelationNameStatusCommentsFatherMaternal GrandfatherMotherPaternal Grandfather Social History Tobacco UseTypesPacks/DayYears UsedDateSmoking Tobacco: FormerCigarettesStarted: 2023Smokeless Tobacco: Never Tobacco Cessation:Counseling Given: Not Answered Alcohol UseStandard Drinks/WeekCommentsNot Currently0 (1 standard drink = 0.6 oz pure alcohol)ChildcareAnswerDate UhpiavunZodazfblaOrcofbj35/02/2021mployment AnswerDate AecjtuxaVhfgojlzfvUbkpkpo80/02/2021Hunger ScreeningAnswerDate RecordedWithin the past 12 months we worried whether our food would run out before we got money to buy more.Never True12/05/2024Within the past 12 months the food we bought just didn't last and we didn't have money to get more.Never True12/05/2024Purpose - LifeAnswerDate RecordedPurpose and direction in life Uwcpafa97/02/2021Estimated Date of IuspievcHkwvzeyeVgt66/06/2026Based on Other Basis, IUI conception date 07/31/2024Sex and Gender InformationValueDate RecordedSex Assigned at BirthNot on fileLegal IhvZwjidr78/06/2015 12:10 PM EDT Gender IdentityNot on fileSexual OrientationNot on file Last Filed Vital Signs Vital SignReadingTime TakenCommentsBlood Jxgufblg95/6208 12:46 PM EDT Mvqta612612/05/2024 12:46 PM EDTTemperature--Respiratory Rate--Oxygen Saturation-- Inhaled Oxygen Concentration--Jcprbb963.6 kg (257 lb)12/05/2024 12:46 PM EDT Ohcvqn223.3 cm (5' 11 )12/05/2024 12:46 PM EDTBody Mass Index35.8412/05/2024 12:46 PM EDT Plan of Treatment Health MaintenanceDue DateLast DoneCommentsDepression Asvwpdecp01/17/2007dult BMI Follow Up Plan2013Pap Smear2016COVID-19 Vaccine ( season)505/07/2020, 07/22/2020Influenza Esvfnsk77 Adult BMI Qijbcqppo61Tobacco Hxumukdou38 DTaP,Tdap and Td Vaccines (9 - Td or Tdap)/02/2025, 12/25/2022, 03/03/2009, Additional history existsRSV ( or age 60+ yrs)Completed 02/26/2025 Medical Devices Not on file Procedures Procedure NamePriorityDate/TimeAssociated DiagnosisCommentsUS [facility] OB FOLLOW-UP, 1 XJRRJMcgeknv75/18/2025 12:04 PM EST Hypothyroidism affecting in second trimester headache in second trimester Previous gastric bypass affecting , antepartum 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 ([facility]) [facility] OB FOLLOW-UP, 1 MJYTVNkroaji43/23/2025 10:49 AM EDT Previous gastric bypass affecting , antepartum Hypothyroidism affecting in second trimester 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 ([facility]) Obesity affecting in second trimester, unspecified obesity type [facility] OB FOLLOW-UP, 1 PHAOKAeckkwe93/18/2025 3:09 PM EDT Previous gastric bypass affecting , antepartum Hypothyroidism affecting in second trimester 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 ([facility]) Obesity affecting in second trimester, unspecified obesity type Encounter for supervision of resulting from assisted reproductive technology, antepartum from Last 3 Months Results * [facility] OB FOLLOW-UP, 1 FETUS (03/05/2025 12:04 PM EST) Only the most recent of3 resultswithin the time period is included. Anatomical RegionLateralityModalityOB-GYNUltrasoundSpecimen (Source)Anatomical Location / LateralityCollection Method / VolumeCollection TimeReceived Time 03/05/2025 11:31 AM EST Narrative 03/05/2025 3:47 PM EST NAME: ??MARIA EUGENIA HINDS : 1995 SEX: F Accession Number: [id number] ORDERING PHYSICIAN: BASIM BIRMINGHAM REFERRING PHYSICIAN: BASIM BIRMINGHAM Coding Procedures ? 57261: Ultrasound, uterus, real time with image documentation, follow up,transabdominal ? approach per fetus Indication resulting from assisted reproductive technology- IUI, History of Gastric sleeve, Obesity in . History OB History ? 1. Para 0 ? [id number] Current Cell free DNA ?low risk analysis Maternal Assessment Physical Exam ??Height 180 cm, 5 ft 11 in. Initial weight 102 kg, 224 lb. Initial BMI 31.24 kg/m?? Method Transabdominal ultrasound examination. [place] . Number [...] (oz) ? 11 oz EFW by: ?Hadlock (IRI-PX-HE-FL) Extended Tibia ??54.8 mm 32w 2d 47% Gayle Professional Engineer ? 4.4 mm Head / Face / [...] MVP measures 7.3 cm. Recommendations Please see [facility] recommendations from prior clinical and/or ultrasound report documentation. Subsequent follow up or other follow up as clinically determined by primary OB provider unless otherwise specified by [facility]. Results forwarded to ordering provider so they can follow up with the patient as necessary. Procedure Note Crystal Rahman MD - 03/05/2025 NAME: MARIA EUGENIA HINDS : 1995 SEX: F Accession Number: [id number] ORDERING PHYSICIAN: BASIM BIRMINGHAM REFERRING PHYSICIAN: BASIM BIRMINGHAM Coding Procedures 66013: Ultrasound, uterus, real time with image documentation, follow up, transabdominal approach per fetus Indication resulting from assisted reproductive technology- IUI, History of Gastric sleeve, Obesity in . History OB History 1. Para 0 [id number] Current Cell free DNA low risk analysis Maternal Assessment Physical Exam Height 180 cm, 5 ft 11 in. Initial weight 102 kg, 224 lb.Initial BMI 31.24 kg/m?? Method Transabdominal ultrasound examination. [place] . Number [...] EFW (oz) 11 oz EFW by: Hadlock (IFY-XH-KK-FL) Extended Tibia 54.8 mm 32w 2d 47% Gayle Professional Engineer 4.4 mm Head / Face / Neck [...] MVP measures 7.3 cm. Recommendations Please see [facility] recommendations from prior clinical and/or ultrasoundreport documentation. Subsequent follow up or other follow up as clinically determined byprimary OB provider unless otherwise specified by MFM. Results forwarded to ordering provider so they can follow up with thepatient as necessary. Authorizing ProviderResult TypeResult StatusCorey R Juan [facility] ORDERABLES Final Result from Last 3 Months Insurance MemberSubscriberPlan / Payer (Effective 2022-Present)Name:Jaz Howell Relation to Subscriber:SelfName:Jaz Howell Payer ID:Not on file Group ID:[id number] Type:Not on file Address: [facility] [id number] [place] [id number] Care Teams Team MemberRelationshipSpecialtyStart DateEnd Date No Pcp, No Pcp LUKE Owens [id number] [facility]
--- OUTSIDE RECORDS SUMMARY | 2025-03-22 20:44 | XMS_ITS | CCD ---
Author Organization [facility] Care Team Providers Care Archival Records Clerk Name Role Phone Mariam Appiah Primary Care [...] [place] Emergency Provider MARYSOL Jett Emergency Provider [phone] MD Lashonda Farhad Admit Provider MD Farhad Gallego Attending Provider [phone] MELY Ford Attending Provider [phone] SHARRON Jefferson Attending Provider [phone] Petr Lay Unavailable Romeo Santana Unavailable MELY Ford Primary Care Provider DO Romeo Santana Attending Provider Daxa Ford NPnifer Primary Care Provider Unavailable [facility]acher FIBERGLASS TECHNICIAN, Amanda Primary Care Provider Romeo Santana DO Attending Provider Rohrbacher RESPIRATORY CARE PROGRAM DIRECTOR, Amanda A Primary Care Provider Unavailable Primary Care Provider Unavailabl e DAVID, MELODIE G Referring Unavailable Unavailable Primary Care Provider Unavailabl e NOLA ENRIQUEZ Attending Unavailable Rohrbacher RESPIRATORY CARE PROGRAM DIRECTOR, Amanda A Primary Care Provider DAVID, MELODIE [...] Unavailable JUAN, LES R Attending Unavailable Rohrbacher FIBERGLASS TECHNICIAN, Amanda Primary Care Provider Kassidy Arriaza DO [...] of OnsetReaction(s) Facility (20 sources)Non-steroidal anti-inflammatory agentDrug allergyUnkRhode Island Homeopathic Hospital Avexxin Other (20 sources)Non-steroidal anti-inflammatory agent; Translations: [NSAIDs]Drug [id number] [facility] (1 source)ALLERGIES NOT ON FILE; Translations: [ALLERGIES NOT ON FILE]Propensity to adverse reactions (disorder)[facility] (6 sources)NSAIDs; Translations: [NSAIDS (NON-STEROIDAL ANTI-INFLAMMATORY DRUG)] Propensity to adverse reactions to ikse38-18-5136[facility] (1 source)NSAIDsDrug allergy (disorder)70-08-5887AarjmhgppPremier [facility] Medications Current Medications MedicationDrug Class(es)DatesSig (Normalized)Sig (Original)acetaminophen 500 mg oral tablet (20 sources)Start: 70-93-2576dgfo 1 tablet by mouth every eight hours as needed acetaminophen (TYLENOL) 500 mg tablet Take 500 mg by mouth every 8 hours as needed for pain. 12/06/2023 ActiveStart: 81-06-1453plao 1 tablet by mouth every six hours as needed for painStart: 11-28-2023 End: 96-52-8903umusklujrukyy (Tylenol Extra Strength) Discontinued 1000 MG PO EVERY 8-10 HOURS as needed for pain November 28, 2023 12:00am January 17, 2024 12:03pmacetaminophen 500 mg / diphenhydrAMINE hydrochloride 25 mg oral tablet (4 sources)Histamine-1 Receptor AntagonistStart: 58-04-8154vdxe 2 tablets by mouth once daily at bedtime for sleepTylenol Extra Strength PM oral tablet 2 tab(s), Oral, Once a day (at bedtime) for sleep, 60 tab(s),Refill(s) 2, [facility], 182, cm, 07/09/19 13:03:00 EDT, Height/Length Measured, 200.7, k g, 07/09/19 13:03:00 EDT, Weight Measured Start Date: 10/04/19 Status: Ordered acetaminophen 325 mg / oxyCODONE hydrochloride 5 mg oral tablet (2 sources)Opioid AgonistStart: 05-07-2020 End: 06-44-4935eoqd 1 tablet by mouth every six hours [...] pain 28 tablet 0 05/07/2020 05/14/2020 ActiveStart: 58-36-2339qvdNDGDUL-acetaminophen (PERCOCET) 5-325 MG per tablet 1 tablet albuterol 0.833 mg/ml / ipratropium bromide 0.167 mg/ml inhalant solution (1 source)Anticholinergic, beta2-Adrenergic AgonistStart: 10-80-5647ksvmmiwxjts- albuterol (DUONEB) nebulizer solution 1 ampulebenztropine mesylate 1 mg oral tablet (4 sources)Anticholinergic, AntihistamineStart: 02-31-8066acrfsompewr 1 mg Tab Refills(s) 0 Start Date: 01/30/20 Status: Orderedcalcium chloride 0.0014 meq/ml / potassium chloride 0.004 meq/ml / sodium chloride 0.103 meq/ml / sodium lactate 0.028 meq/ml injectable solution (2 sources)Start: 05-06-2020 End: 14-80-4392pskzecwp ringers infusiondocusate sodium 100 mg oral capsule (20 sources)Start: 04-16-2024 End: 29-52-4818rfjw 1 capsule by mouth twice daily as needed for constipation Docusate Sodium (Stool Softener) 100 mg capsule Active 0 .ROUTE .COMPLEX April 26, 2024 9:52am TAKE 1 CAPSULE BY MOUTH TWICE DAILY NEEDED FOR CONSTIPATION Complies with drug therapyStart: 04-16-2024 End: 73-76-3381lmpe 1 capsule by mouth twice daily as needed for constipation Docusate Sodium (Stool Softener) 100 mg capsule Discontinued 0 .ROUTE .COMPLEX April 16, 2024 8:58am April 26, 2024 8:57am TAKE 1 CAPSULE BY MOUTH TWICE DAILY NEEDED FOR CONSTIPATIONStart: 06-17-2022 End: 23-72-6847extfwjhc sodium (Colace) 100 MG capsule 1 (one) time each day at the same time 06/17/2022 ActiveStart: 06-11-2022 End: 92-11-8279uxgi 1 capsule by mouth twice daily as [...] prefilled syringe (1 source)Low Molecular Weight HeparinStart: 13-74-5927vljntzstkx (LOVENOX) 60 MG/0.6ML injection Inject 0.6 mLs into the skin 2 times daily 28 Syringe 0 0 05/07/2020 Active2 ml famotidine 10 mg/ml injection (1 source)Histamine-2 Receptor AntagonistStart: 81-64-2672fqkjufqolb (PEPCID) injection 20 mg1 ml heparin sodium, porcine 5000 unt/ml prefilled syringe (2 sources)Unfractionated Heparin, Anti-coagulantStart: 05-06-2020 End: 98-60-4304bhiauzn (porcine) injection 5,000 Units1 ml HYDROmorphone hydrochloride 1 mg/ml cartridge (3 sources)Opioid AgonistStart: 47-34-4086HZROKhxzaseog (DILAUDID) injection 1 mgStart: 05-06-2020 End: 76-90-4750ZMURLhowhhugi (DILAUDID) 1 MG/ML injectionStart: 05-06-2020 End: 15-28-0639KWSUJfeoarhiu (DILAUDID) injection 0.5 mghydrOXYzine hydrochloride 50 mg oral tablet (4 sources)AntihistamineStart: 03-27-8383odsk 1-2 tablets by mouth four times dailyhydrOXYzine hydrochloride 50 mg oral tablet See Instructions, 1-2 tab(s) Oral QID, # 60 tab(s), Refills(s) 2, Pharmacy: [facility] Start Date: 10/09/18 Status: OrderedlamoTRIgine 200 mg oral tablet (20 sources)Mood Stabilizer, Anti-epileptic AgentStart: 79-49-8980Bheogeyezuu Active MG TABLET April 10, 2022 12:00amStart: 05-76-3885omxfyvvhfro 200 mg Tab 300 mg = 1.5 tab(s), Oral, Daily, # 45 tab(s), Refills(s) 5, Pharmacy: [facility], 182, cm, 12/06/19 12:03:00 EDT, Height/Length Dosing, 200.7, kg, 11/28/19 9:08:00 EDT, Weight Dosing Start Date: 01/30/20 Status: OrderedStart: 10-04-2018 End: 88-79-8664tgyw 1 tablet by mouth once daily at bedtimeLamotrigine 200 mg tablet Discontinued 200 MG PO Daily at bedtime October 08, 2019 12:00am August 01, 2021 2:19pmLaMICtal 200 MG tablet 1.5 tabs Activelevothyroxine sodium 0.05 mg oral tablet (20 sources)l-ThyroxineStart: 02-24-2024 End: 58-86-6713aons 1 tablet by mouth before mealtimelevothyroxine (Synthroid, Levoxyl) 50 MCG tablet Indications: Nontoxic goiter Take 1 tablet (50 mcg) by mouth in the morning. Take before meals. 90 tablet 3 08/22/2024 08/17/2025 ActiveStart: 10-13-2023 End: 20-48-3496kplm 1 capsule by mouth once daily in the morningLevothyroxine 50 mcg capsule Discontinued 50 MCG PO Every morning October 13, 2023 12:00am April 26, 2024 9:56amStart: 10-08-2019 End: 59-62-9782stct 1 tablet by mouth every other dayLevothyroxine 175 mcg Tablet Discontinued 175 MCG PO every other day October 08, 2019 12:00am July 172021 2:19pm 1 tablet on odd daysStart: 10-08-2019 End: 53-01-4201igfb 1.5 tablets by mouth every other dayLevothyroxine 175 mcg Tablet Discontinued 262 MCG PO every other day October 08, 2019 12:00am July 172021 2:19pm 1.5 tabs every other day on even daysStart: 10-08-2019 End: 81-08-5276txhz 1.5 tablets by mouth every other dayLevothyroxine Discontinued 262 MCG PO every other day October 08, 2019 12:00am August 01, 2021 2:19pm 1.5 tabs every other day on even daysStart: 38-09-0101hoep 1 tablet by mouth once dailylevothyroxine 175 mcg (0.175 mg) Tab 175 microgram = 1 tab(s), Oral, Daily, # 30 tab(s), Refills(s)0 Start Date: 09/03/18 Status: Ordered lidocaine 0.05 mg/mg medicated patch (20 sources)Antiarrhythmic, Amide Local AnestheticStart: 02-24-2024 End: 68-94-0129heuoz 1 dose transdermal route once dailyLidocaine 5 % adhesive patch,medicated Active 0 .ROUTE .COMPLEX April 26, 2024 9:53am APPLY 1 PATCH TOPICALLY ONCE DAILY. REMOVE AFTER 12 HOURS Complies with drug therapy Start: 02-24-2024 End: 53-78-0401nvwwt 1 dose topically once dailyLidocaine 5 % adhesive patch,medicated Discontinued 1 PATCH TOPICAL Daily February 24, 2024 1:00am February 24, 2024 9:54am leave on most painful area for up to 12 hrsStart: 10-24-2023 End: 98-49-0454nljxc 1 dose transdermal route once dailyLidocaine 5 % adhesive patch,medicated Discontinued 0 .ROUTE .COMPLEX October 24, 2023 8:47am January 17, 2024 12:04pm APPLY 1 PATCH TOPICALLY ONCE DAILY. REMOVE AFTER 12 HOURS Start: 06-03-2023 End: 82-88-7906umqje 1 dose topically once daily as neededLidocaine 5 % adhesive patch,medicated Discontinued 1 PATCH TOPICAL Daily as needed June 03, 2023 1:00am October 24, 2023 8:48am REMOVE AFTER 12 HOURSStart: 26-13-2233Azbkytvrc 5 % 1 patch remove after 12 hours Externally Once a day for 30 day(s) PRN Jan, ActiveLidocaine 5 % APPLY 1 PATCH TOPICALLY ONCE DAILY. REMOVE AFTER 12 HOURS. for 30 Activelithium carbonate 450 mg extended release oral tablet (8 sources)Start: 19-16-3803yacc 1 tablet by mouth once daily in the morning, then take 2 tablets by mouth once daily in the eveninglithium 450 mg oral tablet, extended release See Instructions, 1 tab po qAM and 2 tabs qPM, # 90 tab (s), Refills(s) 2, Pharmacy: [facility], 182, cm, 12/06/19 12:03:00 EDT, Height/Length Dosing, 200.7, kg, 11/28/19 9:08:00 EDT, Weight Dosing Start Date: 03/17/20 Status: Orderedmagnesium oxide 400 mg oral tablet (5 sources)Start: 74-35-9327iyuk 1 tablet by mouth once in the morning, then take 1 tablet by mouth at bedtimemagnesium oxide (MAGOX) 400 mg tablet Indications: headache in second trimester Take 1 tablet (400 mg total) by mouth in the morning and 1 tablet (400 mg total) before bedtime. 120 tablet 1 12/05/2024 Active2 ml ondansetron 2 mg/ml injection (1 source)Serotonin-3 Receptor AntagonistStart: 21-51-0993pcbiglzagbr (ZOFRAN) injection 4 mgpantoprazole 40 mg extended release oral tablet (4 sources)Proton Pump InhibitorStart: 74-91-2119jjrp 1 tablet by mouth once dailypantoprazole 40 mg Oral EC Tab 40 mg = 1 tab(s), Oral, Daily, # 30 tab(s), Refills(s) 0 Start Date:09/03/18 Status: OrderedPNV Combo No.47-Iron-FA #1-DHA (PNV-DHA) 27 mg iron-1 mg -300 mg (5 sources)Start: 82-04-7975rxcf 1 capsule by mouth once dailyPNV Combo No.47-Iron-FA #1-DHA (PNV-DHA) 27 mg iron-1 mg -300 mg Take 1 capsule by mouth once daily. 08/20/2024 Activepolysaccharide iron complex 391 mg oral capsule (20 sources)Start: 27-17-7495xnmg 1 capsule by mouth twice daily at bedtimeProFe 391.3 (180 Fe) MG capsule Indications: Other iron deficiency anemia TAKE 1 CAPSULE BY MOUTH TWICE DAILY IN THE MORNING AND BEFORE BEDTIME 60 capsule 3 11/06/2024 ActiveStart: 12-07-2023 End: 44-66-7450kkpc 1 capsule by mouth once dailyPolysaccharide Iron Complex (Pro Fe) 180 mg iron capsule Discontinued 180 MG PO Daily December 07, 2023 12:00am April 23, 2024 3:52pmtake 2 capsules by mouth twice daily Polysaccharide Iron Complex (PRO FE) 180 mg iron cap Take 2 capsules by mouth two times a day. Activeprenatal on195-tsca-zfrft acid ( 19) 29 mg iron- 1 mg tablet,chewable (7 sources) br078-xzyo-dxckn acid ( 19) 29 mg iron- 1 mg tablet,chewable Chew 1 tablet and swallow in the morning. Activepromethazine hydrochloride 25 mg oral tablet (8 sources)PhenothiazineStart: 85-35-6288wvsv 1 tablet by mouth every six hours as needed for nauseapromethazine (PHENERGAN) 25 MG tablet Take 1 tablet by mouth every 6 hours as needed for Nausea 30 tablet 0 05/07/2020 ActiveStart: 05-06-2020 End: 63-48-6936xhbu 1 tablet by mouth four times daily as needed for nausea promethazine (PHENERGAN) 25 MG tablet Take 1 tablet by mouth 4 times daily as needed for Nausea 20 tablet 0 05/07/2020 05/14/2020 ActiveStart: 05-06-2020 promethazine (PHENERGAN) injection 12.5 mgStart: 03-28-2019 End: 12-13-0287irzk 1 tablet by mouth every four hours as needed for nausea and vomitingpromethazine (PHENERGAN) 25 MG tablet TAKE 1 TABLET BY MOUTH EVERY 4 HOURS NEEDED FOR NAUSEA ANDVOMITING 0 03/28/2019 05/07/2020 Discontinued (REORDER)QUEtiapine 25 mg oral tablet (20 sources)Atypical AntipsychoticStart: 15-99-3832lqhf 1 tablet by mouth at bedtimeQuetiapine 25 mg tablet Active 25 MG PO Bedtime April 10, 2022 1:00am Complies with drug therapyStart: 60-91-7973Cfxgnoztvr Active MG TABLET April 10, 2022 12:00amStart: 36-10-2578qegb 2 tablets by mouth at bedtime quetiapine 50 mg oral tablet 100 mg = 2 tab(s), Oral, Bedtime, # 60 tab(s), Refills(s) 5, Pharmacy:[facility], 182, cm, 12/06/19 12:03:00 EDT, Height/Length Dosing, 200.7, kg, 11/28/19 9:08:00 EDT, Weight Dosing Start Date: 03/12/20 Status: Orderedtake 1 tablet by mouth once dailyQUEtiapine (SEROQUEL XR) 50 MG extended release tablet Take 50 mg by mouth nightly 0 Rrzjrr84 hr scopolamine 0.0139 mg/hr transdermal system (2 sources)AnticholinergicStart: 14-56-0940ziitvwbuppa (TRANSDERM-SCOP) transdermal patch 1 patchsertraline 25 mg oral tablet (20 sources)Serotonin Reuptake InhibitorStart: 51-71-9266sggb 1 tablet by mouth once dailysertraline (Zoloft) 25 MG tablet Take 25 mg by mouth 1 (one) time each day at the same time 09/25/2024 Active3 ml sodium chloride 9 mg/ml injection (2 sources)Start: 52-32-1931mhswww chloride flush 0.9 % injection 10 mLSprintec oral tablet (4 sources)Start: 58-07-6656Fqiuplyu oral tablet 1 tab(s), Oral, Daily, 28 tab(s), Refill(s) 0 Start Date: 05/25/19 Status: Orderedsulfamethoxazole 400 mg / trimethoprim 80 mg oral tablet (7 sources)Dihydrofolate Reductase Inhibitor Antibacterial, Sulfonamide Antimicrobialtake 1 tablet by mouth every twenty-four hoursBactrim 400-80 MG 1 tablet Orally Once a day Activeziprasidone 80 mg oral capsule (20 sources)Atypical AntipsychoticStart: 99-11-9143wnoy 1 capsule by mouth twice daily at mealtimeziprasidone 80 mg Cap 80 mg = 1 cap(s), Oral, BID, with food, # 60 cap(s), Refills(s) 2, Pharmacy: [facility], 182, cm, 12/06/19 12:03:00 EDT, Height/Length Dosing, 200.7, kg, 11/28/19 9:08:00 EDT, Weight Dosing Start Date: 03/12/20 Status: OrderedStart: 10-08-2019 End: 29-88-6035xfga 1 capsule by mouth twice dailyZiprasidone Hcl [...] oral tablet (20 sources)Opioid AgonistStart: 08-01-2021 End: 63-68-0188gbrv 1 tablet by mouth every eight hours as needed for pain Hydrocodone-Acetaminophen 5-325 mg tablet Discontinued 1 TAB PO Q8H as needed for pain 7 2 August 01, 2021 April 10, 2022 7:18pmALPRAZolam 0.5 mg oral tablet (20 sources)BenzodiazepineStart: 06-17-2022 End: 02-60-2775iofp 1 tablet by mouth twice daily as needed for anxiety Alprazolam (Xanax) 0.5 mg tablet Discontinued 0.5 MG PO Twice daily as needed for Anxiety June 03, 2023 9:03am December 02, 2024 11:33pmStart: 06-10-2022 End: 11-81-0955nswo 1 tablet by mouth once daily as needed for anxietyAlprazolam (Xanax) 0.5 mg Tablet Discontinued 0.5 MG PO Daily as needed for Anxiety June 10, 2022 1:00am June 03, 2023 9:04amStart: 31-44-1608tibt 1-2 tablets by mouth every 30 days at bedtime as needed for anxietyalprazolam 0.5 mg Tab 1-2 tabs, Oral, Bedtime, PRN for anxiety, 30 day supply; DX: F41, anxiety, # 60 tab(s), Refills(s) 1, Pharmacy: [facility], 182, cm, 12/06/19 12:03:00 EDT, Height/Length Dosing, 200.7, kg, 11/28/19 9:08:00 EDT, Weight Dosing Start Date: 01/30/20 Status: OrderedStart: 10-08-2019 End: 35-83-5295uyjj 1 tablet by mouth three times daily as needed for anxiety Alprazolam (Xanax) 0.5 mg Tablet Discontinued 0.5 MG PO Three times daily as needed for Anxiety October 08, 2019 12:00am April 10, 2022 7:18pmatomoxetine 40 mg oral capsule (11 sources)Norepinephrine Reuptake InhibitorStart: 01-25-2022 End: 09-15-5337Viperpzxy 40 MG capsule 1 (one) time each day at the same time. 01/25/2022 10/22/2024 Plaquxjheuro62 ml bupivacaine hydrochloride 5 mg/ml injection (1 source)Amide Local AnestheticStart: 05-06-2020 End: 40-67-5901fbanyjazlfp (PF) (MARCAINE) 0.5 % injection 200 mgStart: 05-06-2020 End: 62-34-7896nkfntscxrvt (PF) (MARCAINE) 0.5 % injection 200 mg12 hr buPROPion hydrochloride 150 mg extended release oral tablet (15 sources)AminoketoneStart: 04-26-2024 End: 74-69-4320tfuz 1 tablet by mouth once dailyBupropion Hcl (Wellbutrin Sr) 150 mg tablet sustained-release 12 hr Discontinued 150 MG PO Daily April 26, 2024 1:00am December 02, 2024 11:34pm End: 98-44-1055rxgf 1 tablet by mouth once dailybuPROPion XL (Wellbutrin XL) 150 MG 24 hr tablet Take 150 mg by mouth Daily Do not crush, chew, or split. 10/22/2024 DiscontinuedbusPIRone hydrochloride 15 mg oral tablet (20 sources)Start: 04-10-2022 End: 51-85-3684kljy 1 tablet by mouth three times daily as neededBuspirone 15 mg tablet Discontinued 15 MG PO Three times daily June 10, 2022 1:00am June 03, 2023 9:04am TAKE 1 TABLET BY MOUTH THREE TIMES DAILY NEEDED FOR 30 DAYSStart: 04-10-2022 End: 11-63-8000tpfx 1 tablet by mouth twice dailyBuspirone 15 mg tablet Discontinued 15 MG PO Twice daily June 03, 2023 9:01am December 02, 2024 11:34pmStart: 04-10-2022 End: 44-29-2541Ptudcvepy Discontinued MG TABLET April 10, 2022 1:00am June 10, 2022 6:28pmceFAZolin (ANCEF) 3 g in dextrose 5 % 100 mL IVPB (1 source)Start: 05-06-2020 End: 78-10-7421ddILRjjtk (ANCEF) 3 g in dextrose 5 % 100 mL IVPBcyclobenzaprine hydrochloride 10 mg oral tablet (20 sources)Muscle RelaxantStart: 06-10-2022 End: 24-53-2894voex 1 tablet by mouth at bedtimeCyclobenzaprine 10 mg tablet Discontinued 10 MG PO Bedtime June 10, 2022 1:00am November 28, 2023 3:55pmStart: 05-07-2020 End: 61-96-9037erak 1 tablet by mouth once daily as needed for muscle spasms cyclobenzaprine (FLEXERIL) 10 MG tablet Take 1 tablet by mouth nightly as needed for Muscle spasms 10 tablet 0 05/07/2020 05/17/2020 ActiveStart: 22-72-7296hdng 1 tablet by mouth twice daily as needed for muscle spasmscyclobenzaprine (FLEXERIL) 10 MG tablet Take 1 tablet by mouth 2 times daily as needed for Muscle spasms 20 tablet 0 05/07/2020 ActiveStart: 10-08-2019 End: 26-78-7278bjat 1 tablet by mouth three times daily as needed for muscle spasmsCyclobenzaprine 10 mg tablet Discontinued 10 MG PO Three times daily as needed for Muscle Spasm October 08, 2019 12:00am August 01, 2021 2:19pm End: 89-54-2768cltv 5 mg by mouth three times daily as needed for muscle spasms cyclobenzaprine (Flexeril) 10 MG tablet Take 5 mg by mouth 3 (three) times a day as needed for muscle spasms 10/22/2024 Discontinueddiclofenac sodium 0.01 mg/mg topical gel (17 sources)Nonsteroidal Anti-inflammatory DrugStart: 11-28-2023 End: 37-59-9102xemqo 1 g topically four times daily as needed for painDiclofenac Sodium (Aleve (Diclofenac)) 1 % gel Discontinued 1 GM TOPICAL Four times daily as neededfor pain November 28, 2023 12:00am January 17, 2024 12:03pm apply to single elbow, wrist or hand; for hand includes palm/fingers/back of handStart: 42-17-8189Tqbvbeibeq Sodium 1 % 2 grams Externally Four times a day as needed for 30 day(s) Mar, Activedoxycycline hyclate 100 mg oral tablet (20 sources)Tetracycline-class DrugStart: 08-01-2021 End: 93-59-5130ulfp 1 tablet by mouth twice dailyDoxycycline Hyclate 100 mg tablet Discontinued 100 MG PO Twice daily August 01, 2021 12:00am April 10, 2022 7:18pmergocalciferol 1.25 mg oral capsule (20 sources)Provitamin D2 CompoundStart: 10-08-2019 End: 57-77-9744Gdyrzuuagyoezo (Vitamin D2) (Vitamin D2) 1,250 mcg (50,000 unit) capsule Discontinued 51522 UNIT POevery week October 08, 2019 12:00am August 01, 2021 2:19pm Takes on Sundaystart: 54-67-0825Znhifoi D2 2000 intl units oral capsule Refills(s) 0 Start Date: 05/25/19 Status: OrderedStart: 01-12-2019 End: 15-94-0456gyll 1 capsule by mouth every weekvitamin D (ERGOCALCIFEROL) 86418 units CAPS capsule Indications: Vitamin D deficiency Take 1 capsule by mouth once a week for 8 doses 8 capsule 0 01/12/2019 05/08/2020 Discontinued (Stop Taking at Discharge) End: 82-87-4965Teaolsgbhbuxhw (VITAMIN D2 PO) Take 50,000 capsules by mouth once a week 0 05/08/2020 Discontinued (Stop Taking at Discharge)Ergocalciferol (VITAMIN D2 PO) Take 50,000 capsules by mouth once a week 0 ActiveNorgestimate- Ethinyl Estradiol (20 sources)Progestin, EstrogenStart: 10-08-2019 End: 17-97-0920yqvf 1 tablet by mouth once dailyNorgestimate-Ethinyl Estradiol (Sprintec (28)) 0.25-35 mg-mcg tablet Discontinued 1 TAB PO Daily October 08, 2019 12:00am August 01, 2021 2:19pmStart: 10-08-2019 End: 99-84-2054arih 1 tablet by mouth once dailyNorgestimate-Ethinyl Estradiol (Sprintec (28)) 0.25-35 mg-mcg tablet Discontinued 1 TAB PO Daily October 07, 2019 11:00pm August 01, 2021 1:19pmStart: 37-85-8569pudp 1 tablet by mouth once dailySPRINTEC 28 0.25-35 MG-MCG per tablet TAKE 1 TABLET BY MOUTH ONCE DAILY 3 01/13/2019 Active2 ml fentaNYL 0.05 mg/ml injection (1 source)Opioid AgonistStart: 05-06-2020 End: 43-15-1640jhlatXXN (SUBLIMAZE) injection 25 mcgferrous sulfate 325 mg oral tablet (20 sources)Start: 01-30-2020 End: 61-11-8742qkgw 1 tablet by mouth once dailyFerrous Sulfate 325 mg (65 mg iron) tablet Discontinued 325 MG PO Daily June 11, 2022 1:00am August 29, 2023 11:07amgabapentin 300 mg oral capsule (1 source)Anti-epileptic AgentStart: 05-05-2020 End: 23-19-8836dktz 1 capsule by mouth once daily, then take 1 capsule by mouth, then take 1 capsule by mouthgabapentin (NEURONTIN) 300 MG capsule Take 1 capsule by mouth daily for 2 days. Take one pill the night before and one the morning of surgery 2 capsule 0 05/05/2020 05/08/2020 Discontinued (Stop Taking at Discharge)iohexol (OMNIPAQUE 240) injection 30 mL (1 source)Start: 05-07-2020 End: 08-17-1700tarvnax (OMNIPAQUE 240) injection 30 mL1 ml ketorolac tromethamine 15 mg/ml cartridge (1 source)Nonsteroidal Anti-inflammatory Drug, Cyclooxygenase InhibitorStart: 05-07-2020 End: 09-22-5527uvooolqmn (TORADOL) injection 15 mgStart: 05-07-2020 End: 20-28-9890iuumihpwm (TORADOL) injection 15 mglansoprazole 30 mg delayed release oral capsule (20 sources)Proton Pump InhibitorStart: 10-08-2019 End: 79-70-7517buyj 1 capsule by mouth once daily in the morningLansoprazole 30 mg capsule,delayed release(DR/EC) Discontinued 30 MG PO Every morning November 28, 2023 12:00am February 10, 2024 11:58amletrozole 2.5 mg oral tablet (4 sources)Aromatase Inhibitor End: 96-86-5398hblk 1 tablet by mouth once dailyletrozole (Femara) 2.5 MG chemo tablet Take by mouth Daily. Take with or without food. 09/20/2024 Discontinued (Therapy completed)Lidocaine 5 % adhesive patch,medicated (3 sources)Start: 02-24-2024 End: 42-61-5542vbyge 1 dose transdermal route once dailyLidocaine 5 % adhesive patch,medicated Discontinued 0 .ROUTE .COMPLEX February 24, 2024 8:53am J anuary 2024 8:57am APPLY 1 PATCH TOPICALLY ONCE DAILY. REMOVE AFTER 12 HOURSStart: 87-66-4724ntqdp 1 dose transdermal route once dailyLidocaine 5 % adhesive patch,medicated Active 0 .ROUTE .COMPLEX February 24, 2024 8:53am APPLY 1 PATCH TOPICALLY ONCE DAILY. REMOVE AFTER 12 HOURSlurasidone hydrochloride 40 mg oral tablet (1 source)Atypical Antipsychotic End: 58-21-5237tyop 1 tablet by mouth once dailylurasidone (LATUDA) 40 MG TABS tablet Take by mouth daily 0 04/22/2020 Discontinued (LIST CLEANUP) medroxyPROGESTERone acetate 10 mg oral tablet (20 sources)ProgestinStart: 04-10-2022 End: 57-91-3006Vkiimxbnsnelywyuxjp (Provera) 10 mg tablet Discontinued 10 MG PO Daily 01 25April 10, 2022 1:00am June 10, 2022 6:28pm begin day 16 of cyclemethylPREDNISolone acetate 80 mg/ml injectable suspension (20 sources)CorticosteroidStart: 53-39-3272KAYA-Medrol Sep, 80 mgStart: 35-24-0921isxcnzKVUEALXwslnq 4 MG as directed Orally daily for 6 days August, ActiveStart: 24-96-6308xbcswpDJELMIMgjizq 4 MG as directed Orally daily for 6 days Jan, Not-Taking2 ml midazolam 1 mg/ml injection (1 source)BenzodiazepineStart: 05-06-2020 End: 83-12-0125ozrdunykj PF (VERSED) injection 1 mgmupirocin 20 mg/ml topical cream (20 sources)RNA Synthetase Inhibitor AntibacterialStart: 06-10-2022 End: 55-76-9609Pdpoqlphm Calcium 2 % cream Discontinued 1 APPLIC TOPICAL Twice daily as needed for GENITAL BOILS June 10, 2022 1:00am December 02, 2024 11:34pmStart: 30-11-0379Hevqoyfol Calcium 2 % 1 application Externally Twice a day for 5 day(s) Jan, ActiveStart: 95-59-4194Hnkgzsrcv Calcium 2 % 1 application Externally Twice a day for 5 day(s) Jan, Activenaltrexone hydrochloride 50 mg oral tablet (20 sources)Opioid AntagonistStart: 10-25-2023 End: 85-20-9419kagmuqeyrw (Depade) 50 MG tablet every 12 (twelve) hours 10/25/2023 04/21/2024 ActiveStart: 06-03-2023 End: 75-87-3486zkcj 2 tablets by mouth twice dailynaltrexone 50 mg tablet Take 2 tablets by mouth two times a day. 06/03/2023 ActiveStart: 06-03-2023 End: 88-62-8977fgoj 1 tablet by mouth twice dailyNaltrexone 50 mg tablet Discontinued 100 MG PO Twice daily April 23, 2024 3:51pm December 02, 2024 11:34pmStart: 23-90-8276yzdr 50 mg by mouth once dailyNaltrexone Active 50 MG PO Daily June 03, 2023 1:00amtake 1 tablet by mouth every twenty-four hours Naltrexone HCl 50 MG 1 tablet Orally Once a day ActiveoxyCODONE hydrochloride 5 mg oral tablet (17 sources)Opioid AgonistStart: 12-09-2023 End: 26-79-1501kcih 1 tablet by mouth at mealtime for painOxycodone 5 mg tablet Discontinued 5 MG PO .q6-8hrs as needed for severe pain 03 22December 09, 2023 December 20, 2023 10:47am Take with food. Do not fill until 12/10/23.Start: 12-06-2023 End: 67-08-6242zzdt 1 tablet by mouth every six hours as needed for pain Oxycodone 5 mg tablet Discontinued 5 MG PO Q6H as needed for Pain 04 09December 06, 2023 December 07, 2023 7:13amrisperiDONE 4 mg oral tablet (1 source)Atypical AntipsychoticStart: 09-19-2018 End: 90-12-2896gcsu 1 tablet by mouth in the morningrisperiDONE (RISPERDAL) 4 MG tablet TAKE 1 2 (ONE HALF) TABLET BY MOUTH IN THE MORNING AND 1 TAB INTHE EVENING 2 09/19/2018 04/22/2020 Discontinued (LIST CLEANUP)traMADol hydrochloride 50 mg oral tablet (17 sources)Opioid AgonistStart: 12-07-2023 End: 06-48-7387junk 1 tablet by mouth every eight hours as needed for pain Tramadol 50 mg tablet Discontinued 50 MG PO Every 8 hours as needed for pain 15 7 December 1443:44pm January 17, 2024 12:04pmtrihexyphenidyl hydrochloride 2 mg oral tablet (1 source)Start: 03-28-2019 End: 44-63-5869goux 1 tablet by mouth twice dailytrihexyphenidyl (ARTANE) 2 MG tablet TAKE 1 TABLET BY MOUTH TWICE DAILY FOR 30 DAYS 0 03/28/2019 04/22/2020 Discontinued (LIST CLEANUP) Problems Active Problems Problem ClassificationProblemDateDocumented DateEpisodic/ChronicAbdominal pain (20 sources)Flank pain; Translations: [Unspecified abdominal pain]07-03-2021 EpisodicAdministrative/social admission (2 sources)Treatment plan given; Translations: [Counseling, unspecified] 98-48-9009OxgexdkqZuvreens reactions (5 sources)Acute urticaria; Translations: [Other urticaria]67-54-1013Zttrmfbt Anxiety disorders (20 sources)Mixed anxiety and depressive disorder; Translations: [Anxiety disorder, unspecified]82-05-3873RjthqgsYhmgwisdf-deficit, conduct, and disruptive behavior disorders (20 sources)Attention deficit hyperactivity disorder, predominantly inattentive type; Translations: [Attention-deficit hyperactivity disorder, predominantly inattentive type]53-95-1890JmrxnofBidvarjip-deficit, conduct, and disruptive behavior disorders (1 source)Attention-deficit hyperactivity disorder, predominantly inattentive typeChronicAttention-deficit, conduct, and disruptive behavior disorders (20 sources)Attention deficit hyperactivity disorder; Translations: [Attention- deficit hyperactivity disorder, predominantly inattentive type]ChronicBiliary tract disease (4 sources)Rhdiybcvc82-08-4087EunffuehDxshqvbzgfqvw and procreative management (14 sources)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 partner; Translations: [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]Onset: 400150-20-2318IosrizpsXrtrpnvjnf and other anemia (19 sources)Anemia; Translations: [Anemia, unspecified]78-10-3501Atyfgfrd Deficiency and other anemia (20 sources)Iron deficiency anemia; Translations: [Iron deficiency anemia, unspecified]57-11-0706DngwuiahLryeptbliw and other anemia (4 sources)Anemia, unspecified; Translations: [Anemia, unspecified]06-10-2022 EpisodicDeficiency and other anemia (4 sources)Iron deficiency anemia, unspecified; Translations: [Iron deficiency anemia, unspecified]79-88-0350EbcpgempVypwjgdgpo and other anemia (2 sources)Other iron deficiency anemiasEpisodicDisorders usually diagnosed in infancy, childhood, or adolescence (20 sources)Non-organic primary nocturnal enuresis; Translations: [Enuresis not due to a substance or known physiological condition]ChronicEsophageal disorders (20 sources)Gastroesophageal reflux disease without esophagitis; Translations: [Gastro-esophageal reflux disease without esophagitis]Onset: 07-16-2021 Resolved: 25-90-4293TluondqNglehb infertility (20 sources)Anovulation; Translations: [Female infertility associated with anovulation]Onset: 606680-48-7744YrphlpjQhwpt of unknown origin (16 sources)Fever; Translations: [Fever, unspecified]34-46-1867Zyycrkkh Genitourinary symptoms and ill-defined conditions (2 sources)Painful micturition, unspecified; Translations: [Other microscopic hematuria]EpisodicHeadache; including migraine (1 source)Headache; including migraine; Translations: [Headache, unspecified] Onset: 34-03-5510Mivvvigkpa during ; abruptio placenta; placenta previa (4 sources)Bleeding from female genital tract during ; Translations: [Antepartum hemorrhage, unspecified, unspecified trimester]Onset: 10-18-2024 84-35-0540WddwxbhvXmfylwjbzxzpy and screening for infectious disease (8 sources)Patient encounter status; Translations: [Encounter for screening for infectious and parasitic diseases, unspecified]Onset: EpisodicMenstrual disorders (20 sources)Menorrhagia; Translations: [Excessive and frequent menstruation with regular cycle]ChronicMood disorders (20 sources)Bipolar disorder; Translations: [Bipolar affective disorder, currently depressed, mild]Onset: 447699-31-4896DrtwzsxJeeqhy and vomiting (16 sources)Vomiting; Translations: [Vomiting, unspecified]58-92-5115Hxnletri Nutritional deficiencies (20 sources)Vitamin D deficiency; Translations: [Vitamin D deficiency, unspecified]Onset: 01-12-2019 Resolved: 286402-03-9939GtzzgcvQerngrjkxdc deficiencies (4 sources)Iron deficiency; Translations: [Vitamin A deficiency, unspecified] Onset: 07-16-2021 Resolved: 56-72-8705LqcnupihOrunandskuikps (20 sources)Arthritis of shoulder region joint; Translations: [Primary osteoarthritis, unspecified shoulder]ChronicOther complications of (5 sources)Maternal obesity complicating , childbirth and the puerperium, antepartum; Translations: [Obesity complicating , second trimester]28-42-7303AhkpdtvMapej complications of (1 source)Obesity complicating , second trimester; Translations: [Obesity complicating , second trimester]Onset: 69-75-4077ZfihqxmDoysq complications of (4 sources)Supervision of resulting from assisted reproductive technology, first trimester; Translations: [ resulting from assisted reproductive technology]Onset: 336520-04-7207EyovbljsTzoab complications of (2 sources)Conceived by in vitro fertilization; Translations: [Supervision of resulting from assisted reproductive technology, first trimester] 55-96-2105MqykrotlFmrxh complications of (12 sources)Hypothyroidism in ; Translations: [Endocrine, nutritional and metabolic diseases complicating , second trimester]Onset: 383566-88-0556JodjmbryAmaef complications of (9 sources)Bipolar disorder; Translations: [Other mental disorders complicating , second trimester]Onset: 675665-22-4726BegdctuaAoryg complications of (2 sources)Supervision of resulting from assisted reproductive technology, unspecified trimester; Translations: [ resulting from assisted reproductive technology]Onset: 773753-44-9539BrhmcldsGvgyy complications of (8 sources)Headache; Translations: [Other specified related conditions, second trimester]Onset: 622100-26-3387QnczzfnkNfqwr complications of (1 source)Other specified related conditions, second trimester; Translations: [Other specified related conditions, second trimester] Onset: 12-62-7286AknxyigzNkybj complications of (1 source)Bariatric surgery status complicating , unspecified trimester; 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 complicating , unspecified trimester]Onset: 73-92-1199IfhiafzmIhvbl complications of (1 source)Endocrine, nutritional and metabolic diseases complicating , second trimester; Translations: [Endocrine, nutritional and metabolic diseases complicating , second trimester]Onset: 29-32-5251HdsmbkhnZnzyq complications of (1 source)Other mental disorders complicating , second trimester; Translations: [Other mental disorders complicating , second trimester] Onset: 56-52-3101GibowmlxFuzqp connective tissue disease (4 sources)Plantar fnvdaufku70-40-2024QnwvldtjSxpfv connective tissue disease (1 source)Lateral epicondylitis, right elbowEpisodicOther connective tissue disease (2 sources)Bursitis of right shoulderEpisodicOther connective tissue disease (20 sources)Disorder of ligament, unspecified site; Translations: [Laxity of ligament]EpisodicOther connective tissue disease (14 sources)Laxity of ligament; Translations: [Disorder of ligament, unspecified site]15-13-5408SuoqxpomEbumgvo on above:right shoulderOther connective tissue disease (4 sources)Bilateral plantar fasciitis; Translations: [Plantar fasciitis, bilateral]Onset: Other female genital disorders (20 sources)Abnormal uterine bleeding; Translations: [Other specified abnormal uterine and vaginal bleeding]13-68-1836HjmhsuzQxzqc gastrointestinal disorders (15 sources)Constipation; Translations: [Constipation, unspecified]06-08-2023 EpisodicOther gastrointestinal disorders (1 source)Constipation, unspecified; Translations: [Constipation, unspecified] 94-75-4812ZhodrhdgYsxiv gastrointestinal disorders (11 sources)History of bypass of stomach; 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]Onset: 417012-07-2532OyvysepzHnwgz hematologic conditions (4 sources)H/O: anemia - iron deficient; Translations: [Personal history of diseases of the blood and blood-forming organs and certain disorders involving the immune mechanism]51-08-0130UfuqhgiiSlnun inflammatory condition of skin (1 source)Erythema intertrigoEpisodicOther nervous system disorders (20 sources)Chronic pain; Translations: [Other chronic pain]01-05-6097Bzkfdqg Other nervous system disorders (2 sources)Other chronic pain; Translations: [Other chronic pain]ChronicOther nervous system disorders (12 sources)Carpal tunnel syndrome of right wrist; Translations: [Carpal tunnel syndrome, right upper limb]58-09-1693CtgutabSugtc nervous system disorders (20 sources)Carpal tunnel syndrome, right upper limb; Translations: [Carpal tunnel syndrome]30-11-7447JvijcyfJebyi nervous system disorders (1 source)Postoperative pain ; Translations: [Post-op pain]EpisodicOther nervous system disorders (14 sources)Numbness of hand; Translations: [Anesthesia of skin]10-13-2023 EpisodicOther nervous system disorders (13 sources)Anesthesia of skin; Translations: [Disturbance of skin sensation] 89-25-0336FbbrxhjyJexeo non-traumatic joint disorders (16 sources)Derangement of right [...] right shoulder joint; Translations: [Other instability, right shoulder]46-77-9094YkszewfiTfetd nutritional; endocrine; and metabolic disorders (8 sources)Body mass index 40+ - severely obese; Translations: [Morbid obesity with BMI of 50.0-59.9, adult]Onset: 12-05-2018 Resolved: 103220-15-2655FmwgbwgFwgse nutritional; endocrine; and metabolic disorders (4 sources)Morbid jeqxzmi32-64-2044MiknfirOwvla and delivery including normal (16 sources)Early stage of ; Translations: [Encounter for supervision of normal , unspecified, unspecified trimester]Onset: 09-03-2024 72-56-6937MkmswswaQlvgl screening for suspected conditions (not mental disorders or infectious disease) (5 sources)Thyroid function tests abnormal; Translations: [Abnormal results of thyroid function studies]Onset: 913023-27-3424OhpqetqrAsdga skin disorders (1 source)Follicular disorder, unspecifiedEpisodicResidual codes; unclassified (20 sources)Obstructive sleep apnea syndrome; Translations: [Obstructive sleep apnea (adult) (pediatric)]23-14-6407HmwrsjhJcrfjbj on above:patient denies. sleep study 2010Residual codes; unclassified (18 sources)Other specified postprocedural states; Translations: [Other postprocedural status]Onset: 07-16-2021 Resolved: 70-39-4258VbyquqpqDwmjatuk codes; unclassified (15 sources)Chill; Translations: [Chills (without fever)]89-71-0771Pgcrsjjg Residual codes; unclassified (20 sources)History of sleeve gastrectomy; Translations: [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]]23-96-6962FyhpzeybJtuhsxw on above:Aprilesidual codes; unclassified (1 source)Chills (without fever); Translations: [Chills (without fever)] 12-59-8722RmdwmpaiVgswtprw codes; unclassified (1 source)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]; Translations: [Personal history of surgery to other organs]87-96-5454LsjezrokBaealykv codes; unclassified (9 sources)History of arthroscopic procedure on shoulder; Translations: [Other specified postprocedural states]12-41-3595YivszzgvFlqvjctt codes; unclassified (1 source)Gestation period, 9 weeks; Translations: [9 weeks gestation of ]54-77-1177RnrabpiuPavhipzi codes; unclassified (2 sources)Gestation period, 13 weeks; Translations: [13 weeks gestation of ]87-61-3671SjotaxpsKnspjpaf codes; unclassified (2 sources)Gestation period, 18 weeks; Translations: [18 weeks gestation of ]66-36-4823WanulpekNamadljd codes; unclassified (1 source)Gestation period, 20 weeks; Translations: [20 weeks gestation of ]24-75-5550BcnzpqlwLofbhcan codes; unclassified (2 sources)Gestation period, 22 weeks; Translations: [22 weeks gestation of ]06-24-4885FagznaeyXvpdmboh codes; unclassified (2 sources)Gestation period, 26 weeks; Translations: [26 weeks gestation of ]42-38-1520GrkkzgbyBunofyye codes; unclassified (2 sources)Gestation period, 29 weeks; Translations: [29 weeks gestation of ]90-06-2907NtntrofmPqxzggbh codes; unclassified (2 sources)Gestation period, 31 weeks; Translations: [31 weeks gestation of ]91-79-1061EoanmxyrShpa and subcutaneous tissue infections (20 sources)Abscess; Translations: [Cutaneous abscess, unspecified]08-01-2021 EpisodicSprains and strains (20 sources)Strain of unspecified muscle, fascia and tendon at shoulder and upper arm level, right arm, initialencounter; Translations: [Strain of other muscles, fascia and tendons at shoulder and upper arm level, right arm, initial encounter]EpisodicSubstance-related disorders (4 sources)Marijuana user; Translations: [Marijuana use]Onset: 12-05-2018 65-07-8966Ooepwwl disorders (20 sources)Hypothyroidism; Translations: [Acquired hypothyroidism]Onset: 12-05-2018 Resolved: 860780-63-9417CbuxqkzAocbwyt disorders (6 sources)Disorder of thyroid gland; Translations: [Disorder of thyroid, unspecified]76-12-2320PszuyeqjUxdaxisgfpud (2 sources)History of sleeve gastrectomy; Translations: [Status post laparoscopic sleeve gastrectomy]Onset: 478736-05-6145Ztoshomijiba (5 sources)Patient encounter status; Translations: [Pre-op testing]09-03-2018 Unclassified (1 source) 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)14-69-4644Fnrigtevtnub (20 sources)OB RemindersOnset: 78-78-603167805314-88-2055Rufyaahubuan (2 sources)keep next scheduled appointmentUnclassified (1 source)IUI pregnancyOnset: 22-05-3175Ukotzjtafkkp (1 source)Pee's ThyroiditisOnset: 12-05-2024 Past or Other Problems Problem ClassificationProblemDateDocumented DateEpisodic/ChronicScreening and history of mental health and substance abuse codes (1 source)Personal history of nicotine dependenceOnset: 07-16-2021 Resolved: 74-37-0812KaceyfgdBkesjapounyp (3 sources)History of bypass of pkilqkz75-19-4582Uobbaukljyoo (1 source)Encounter for supervision of resulting from assisted reproductive technology, vyfltgllcz15-40-7069EQPRIRU: Highlighted row has been ruled out!Unclassified (1 source)No known active abrotagk61-25-7150 Results Test NameValueInterpretationReference RangeFacilityUS OB BPP W NON-STRESS on 56-55[place]3627[place], [place] [address] Ultrasound Report Signed Patient: JAZ SANDERS MR#: [id number] : 1995 Acct:[id number] Age/Sex: 29 / F ADM Date: 02/25/25 Loc: US Attending Dr: Les Martinez D.O. Ordering Physician: Les Martinez D.O. Date of Service: 02/25/25 Procedure(s): US OB BPP w non-stress Accession Number(s): [id number] cc: Les Martinez D.O.; AMANDA FORD [place] [id number] Patient Name: JAZ SANDERS MRN: [id number] date: 1995 Sex: F Assigned Patient Location: [facility] Current Patient Location: Accession/Order Number: [id number] Exam Date: 02/25/2025 14:03 Report Date: 02/26/2025 [...] Umana M.D. 02/26/2025 8:30 AM Dictation Location: [place] [address] Electronically authenticated by: [id number] Y Date: 02/26/2025 08:30 Dictated By: Alana Umana M.D. Signed By: 02/26/25831 DD/ 9 TD/TT: Supervisor Advertising Dispatch Clerks:TBHRadiology, Radiologist, MD - 02/26/2025 [place] [address] Ultrasound Report Signed Patient: JAZ SANDERS MR#: [id number] : 1995 Acct:[id number] Age/Sex: 29 / F ADM Date: 02/25/25 Loc: US Attending Dr: Les Martinez D.O. Ordering Physician: Les Martinez D.O. Date of Service: 02/25/25 Procedure(s): US OB BPP w non-stress Accession Number(s): [id number] cc: Les Martinez D.O.; AMANDA FORD [address] [address] Patient Name: JAZ SANDERS MRN: [id number] date: 1995 Sex: F Assigned Patient Location: [facility] Current Patient Location: Accession/Order Number: [id number] Exam Date: 02/25/2025 14:03 Report Date: 02/26/2025 [...] Umana M.D. 02/26/2025 8:30 AM Dictation Location: [place] [address] Electronically authenticated by: [id number] Y Date: 02/26/2025 08:30 Dictated By: Alana Umana M.D. Signed By: 02/26/25831 DD/ 9 TD/TT: Supervisor Advertising Dispatch Clerks: GUDELIA HealthcareRadiology Study observation (narrative)NOMS HealthcareUS OB BPP W NON-STRESSOrdered By: Radiologist Radiology on 61-29-7110GVVQHarry S. [facility] Work Phone: aLL THYROID STIM HORMONEon 55-13-8815WBZ Qn1.347 m[IU]/LNOMS HealthcareCLINISYNCNOMS HealthcareUrinalysis macro (dipstick) panel (U)on 58-03-1688Etzkbexdf, UANegativeNegative - 4(70) +++ mg/dLNOMS Healthcare Blood, UANegativeNegative - 50 Yehuda/mcLNOMS HealthcareClarity, UAClearNOMS HealthcareColor, UAYellowNOMS HealthcareGlucose, UANegativeNegative - 2000(110) ++++ mg/dLNOMT HealthcareInterpretation and review of laboratory resultsNormal NOMS HealthcareKetones, UANegativeNegative - 160(16) ++++ mg/dLNOMS Healthcare Leukocytes, UANegativeNegative - 500+++ Kourtney/mcLNOMT HealthcareNitrite, UA NegativeNegative - PositiveNOMS HealthcarepH, UA6.05 - 9NOMS HealthcareProtein, UANegativeNegative - 2000(20) ++++ mg/dLNOMS HealthcareSpec Grav, UA1.0201 - 1.03NOMT HealthcareUrobilinogen, UA1.00.2 - 12 mg/dLNOMS HealthcareNOMS HealthcareUrinalysis macro (dipstick) panel (U)on 96-60-2324Ngiqwtkws, UA NegativeNegative - 4(70) +++ mg/dLNOMT HealthcareBlood, UANegativeNegative - 50 Yehuda/mcLNOMT HealthcareClarity, UAClearNOMS HealthcareColor, UAYellowNOMT HealthcareGlucose, UANegativeNegative - 2000(110) ++++ mg/dLNOMT Healthcare Interpretation and review of laboratory resultsAbnormalNOMS HealthcareKetones, UAPositiveNegative - 160(16) ++++ mg/dLUINTAH BAS[facility] HealthcareLeukocytes, UATrace Negative - 500+++ Kourtney/mcLUINTAH BASIN MEDICAL [facility] HealthcareNitrite, UANegativeNegative - Positive NOMS HealthcarepH, UA6.55 - 9NOMS HealthcareProtein, UANegativeNegative - 2000(20) ++++ mg/dLNOMT HealthcareSpec Grav, UA1.0101 - 1.03NOMT Healthcare Urobilinogen, UA2.00.2 - 12 mg/dLNOMS [facility] EastNOMS HealthcareUS OB FOLLOW UP TRANSABDOMINAL APPROACHon 33-82-6475SF OB FOLLOW UP TRANSABDOMINAL APPROACH FINDINGS: Comparison [...] Delivery: 04/23/25 Gestational Age as of 01/16/2025: 40o1nOcgnassykf macro (dipstick) panel (U)on 90-97-1591Mbylahpeh, UANegativeNegative - 4(70) +++ mg/dLNOMS HealthcareBlood, UANegativeNegative [...] mg/dLNOMS HealthcareNOMS Healthcare ALL THYROID STIM HORMONEon 24-01-5281SOM Qn2.449 m[IU]/LNOMS HealthcareCLINISYNC NOMS HealthcareALL CBC WITH AUTO DIFFon 27-49-3875XGHHCITWT ABSOLUTE XXIE1YRRR HealthcareBasophils/100 WBC (Bld)0.3 %0.2 - 2.0 %NOMS HealthcareEosinophils/100 WBC (Bld)1.2 %0.9 - 7.0 %[facility] HealthcareErythrocyte distribution width (RBC) [Ratio]13.2 %11.0 - 15.0 %[facility] HealthcareHematocrit (Bld) [Volume fraction]35.6 %Low36.0 - 48.0 %[facility] HealthcareHemoglobin (Bld) [Mass/Vol]12 g/dL12.0 - 16.0 g/dLHarry S. Truman Memorial Veterans' HospitalIMMATURE GRANULOCYTES ABS AUTO0.1HighNOAudrain Medical CenterImmature granulocytes/100 WBC (Bld)0.8 %High0.0 - 0.5 %[facility] HealthcareInterpretation and review of laboratory resultsAbnormalHarry S. Truman Memorial Veterans' HospitalLYMPHOCYTES ABSOLUTE AUTO2.3 NOMSaint John'S HospitalLymphocytes/100 WBC (Bld)19.7 %Low20.5 - 60.0 %[facility] HealthH (RBC) [Entitic mass]29.6 pg26.7 - 34.0 pgHarry S. Truman Memorial Veterans' HospitalMCHC (RBC) [Mass/Vol] 33.7 g/dL29.9 - 35.2 g/dLHarry S. Truman Memorial Veterans' HospitalMCV (RBC) [Entitic vol]87.7 fL81.0 - 99.0 fLHarry S. Truman Memorial Veterans' HospitalMONOCYTES ABSOLUTE AUTO0.7NOAudrain Medical CenterMonocytes/100 WBC (Bld)6.2 %1.7 - 12.0 %[facility]' HospitalNEUTROPHILS ABSOLUTE AUTO8.5HighNOAudrain Medical CenterNeutrophils/100 WBC (Bld)71.8 %43.0 - 75.0 %[facility]' HospitalPlatelet mean volume (Bld) [Entitic vol]8.7 fLLow9.5 - 13.5 fLHarry S. Truman Memorial Veterans' HospitalTBH EO #0.1 [facility]' HospitalTB CPZ992DPUASSM Rehab RBC4.06LowNOAudrain Medical CenterTB WBC11.8 HighHarry S. Truman Memorial Veterans' HospitalCLINISYNCNHCA Midwest DivisionGLUCOSE 1 HOURon 52-04-4999Udrycbj [Mass/Vol]118 mg/dLNINF - 130 mg/dLAtrium Health Pineville Urinalysis macro (dipstick) panel (U)on 19-20-3128Qphipohsp, UANegativeNegative - 4(70) +++ mg/dLNOMS HealthcareBlood, UANegativeNegative - 50 Yehuda/mcLNOMS HealthcareClarity, UAClearNOMS HealthcareColor, UAYellowNOMS HealthcareGlucose, UANegativeNegative - 2000(110) ++++ mg/dLNOMT HealthcareInterpretation and review of laboratory resultsNormalNOMS HealthcareKetones, UANegativeNegative - 160(16) ++++ mg/dLNOMT HealthcareLeukocytes, UANegativeNegative - 500+++ Kourtney/mcL NOMS HealthcareNitrite, UANegativeNegative - PositiveNOMS HealthcarepH, UA75 - 9 NOMS HealthcareProtein, UANegativeNegative - 2000(20) ++++ mg/dLNOMT Healthcare Spec Grav, UA1.011 - 1.03NOMS HealthcareUrobilinogen, UA1.00.2 - 12 mg/dLNOMT HealthcareNOMT HealthcareNo Panel Informationon 36-58-4922JUCPMCBSNZCPR HealthcareTB UA (CLEAN/CATCH) BUILD AND DEPLOYMENT ENGINEER/MICRO IF IND.on 74-76-7347CIHFIFAIT URINE NegativeNEGATIVENOMS HealthcareBLOOD URINESMALLAbnormalNEGATIVENOMT Healthcare Clarity (U)CLEARCLEARNOMS HealthcareColor (U)LT. YELLOWYELLOWNOMT Healthcare GLUCOSE URINE UANegativeNEGATIVE mg/dLNOMT HealthcareInterpretation and review of laboratory resultsAbnormalNOMS HealthcareKetones Ql (U)NegativeNEGATIVE mg/dL NOM HealthcareLeukocyte esterase Test strip Ql (U)NegativeNEGATIVENOMS HealthcareNITRITE URINENegativeNEGATIVENOMS HealthcarepH (U)5.5 [pH]5.0 - 9.0 NOMS HealthcarePROTEIN URINENegativeNEG/TRACE mg/dLNOMT HealthcareSPECIFIC GRAVITY URINE1.0151.005 - 1.025NOMT HealthcareURINE MICROSCOPIC INDICATEDYESNOMT HealthcareUROBILINOGEN URINE0.2 EU/dL0.2 - 1.0 EU/dLHarry S. Truman Memorial Veterans' HospitalTB URINE MICROSCOPIC ONLYon 66-03-6038XHULAJDS URINENONE SEENNONE SEEN #/HPFNOMS HealthcareCAST SEEN?NONE SEENNONE SEEN #/LPFNOMS HealthcareCRYSTALS SEEN?None SeenNone Seen #/HPFNOMS HealthcareMUCUS URINENONE SEENNONE SEENNOMT Healthcare SQUAMOUS EPITHELIAL CELL URINERARENONE/RARE #/LPFNOAudrain Medical CenterTBH RBC0-2NOMS [facility] EastTB WBCNONE SEENNONE SEEN #/HPFNOAudrain Medical CenterURINE CULTURE INDICATED NONOMS HealthcareUS OB 14+ WEEKS ANATOMY SCANon 70-93-6915LD OB 14+ WEEKS ANATOMY SCANEXAM: US OB [...] II, MD, PHD at 06-Dec-2024 08:04:50 AM [address] [facility] [facility] TeleradiologyNormalNot AvailableComment on above:Order Comment: US OB ANATOMY SINGLE W US OB CERVICAL LENGTH Estimated Date of Delivery: 04/23/25 Gestational Age as of 11/20/2024: 39n4nNfmtaworpm complete panel (U)on 12-03-2024 Comment c/o urinary symptoms or increased blood pressure Name Collection Type:: VoidedFIRELANDSNOMS HealthcareAppearance of Urineon 44-07-7956Umtzdjyhou (U)ClearNormalClearNOMS HealthcareComment on above:Order Comment: Comment c/o urinary symptoms or increased blood pressure Name Collection Type:: VoidedPerformed By: #### ADDONUAPLUS #### [address] [address] USABacteria [Presence] in Urine by AutomatedOrdered By: Eduardo Cruz on 69-95-4389Hldjxjnd Auto Ql (U)1+ [HPF]HighNone SeenPremier Health Miami Valley Hospital SouthBilirubin Test strip Ql (U)Ordered By: Eduardo Cruz on 16-69-5912Owxlczyhq Ql (U)NegativeNegativePremier Health Miami Valley Hospital SouthColor of Urine by Autoon 70-31-2685Rlbbj (U)Light-YellowNormalYellowNOMS Healthcare Comment on above:Order Comment: Comment c/o urinary symptoms or increased blood pressure Name Collection Type:: VoidedPerformed By: #### ADDONUAPLUS #### [facility] [address] [place] [address] USADipstick and Microscopicon 04-51-2576Jkpuofuq,Urine1+ [HPF]NormalNone SeenHendry Regional Medical Center Physician GroupComment on above:Order Comment: Comment c/o urinary symptoms or increased blood pressure Name Collection Type:: VoidedPerformed By: #### ADDONUAPLUS #### [address] [address] USABILIRUBIN,URINENegativeNormalNegativeNOMS Healthcare Comment on above:Order Comment: Comment c/o urinary symptoms or increased blood pressure Name Collection Type:: VoidedPerformed By: #### ADDONUAPLUS #### [place] [address] USAGlucose Ql (U)NormalNormalNormalNOMS HealthcareComment on above:Order Comment: Comment c/o urinary symptoms or increased blood pressure Name Collection Type:: VoidedPerformed By: #### ADDONUAPLUS #### [place] [address] USAHyaline Casts,UrineNoneNormal0-8The [facility] Access Hospital Physician GroupComment on above:Order Comment: Comment c/o urinary symptoms or increased blood pressure Name Collection Type:: VoidedPerformed By: #### ADDONUAPLUS #### [place] [address] USAMucus,Urine1+ [LPF]Critically abnormalThe Critical Access Hospital Physician GroupComment on above:Order Comment: Comment c/o urinary symptoms or increased blood pressure Name Collection Type:: VoidedResult Comment: PERFORMED BY: [place] [address] MAGISTRATE DAMIÁN DOSHI M.D.Performed By: #### ADDONUAPLUS #### [place] [address] USANITRITE,URINENegativeNormalNegativeNOMS HealthcareComment on above:Order Comment: Comment c/o urinary symptoms or increased blood pressure Name Collection Type:: VoidedPerformed By: #### ADDONUAPLUS #### [place] [address] USAOCCULT BLOOD,URINE3+NormalNegativeNOMS HealthcareComment on above:Order Comment: Comment c/o urinary symptoms or increased blood pressure Name Collection Type:: VoidedResult Comment: PERFORMED BY: [place] [address] MAGISTRATE DAMIÁN DOSHI M.D.Performed By: #### ADDONUAPLUS #### [facility] [address] [place] [address] USAPROTEIN,URINENegativeNormalNegativeNOMS HealthcareComment on above:Order Comment: Comment c/o urinary symptoms or increased blood pressure Name Collection Type:: VoidedPerformed By: #### ADDONUAPLUS #### [place] [address] USARBC,Hbcpc0-0Xpitwv6-9Jsb [facility] Physician GroupComment on above:Order Comment: Comment c/o urinary symptoms or increased blood pressure Name Collection Type:: VoidedPerformed By: #### ADDONUAPLUS #### [place] [address] USASPECIFICY GRAVITY,URINE1.635Ufeqtz5.001-1.030NOMS HealthcareComment on above:Order Comment: Comment c/o urinary symptoms or increased blood pressure Name Collection Type:: VoidedPerformed By: #### ADDONUAPLUS #### [place] [address] USASquamous Epithelial Cell,Hvoez1-5Zoqyte7-6Dwo [facility] Hospital Physician GroupComment on above:Order Comment: Comment c/o urinary symptoms or increased blood pressure Name Collection Type:: VoidedPerformed By: #### ADDONUAPLUS #### [place] [address] USAUROBILINOGEN,URINENormalNormalNormalNOMS HealthcareComment on above:Order Comment: Comment c/o urinary symptoms or increased blood pressure Name Collection Type:: VoidedPerformed By: #### ADDONUAPLUS #### [place] [address] USAWBC,Ejdby0-1Zrmsuj1-0Dxm [facility] Physician GroupComment on above:Order Comment: Comment c/o urinary symptoms or increased blood pressure Name Collection Type:: VoidedPerformed By: #### ADDONUAPLUS #### [place] [address] USAEpithelial cells.squamous [#/area] in Urine sediment by Automated countOrdered By: Eduardo Cruz on 36-86-6756Ytjggpmfuu cells.squamous Auto (Urine sed) [#/Area]1-2 [HPF]0-2FMercy Health Springfield Regional Medical Center Erythrocytes [#/area] in Urine sediment by Automated countOrdered By: Eduardo Cruz on 05-29-1107FLL Auto (Urine sed) [#/Area]1-2 [HPF]0-4FMercy Health Springfield Regional Medical CenterGlucose [Mass/volume] in Urine by Test stripOrdered By: Eduardo Cruz on 20-78-6005Gijjcon Test strip (U) [Mass/Vol]Normal mg/dLNormalPremier Health Miami Valley Hospital SouthHemoglobin Test strip Ql (U)Ordered By: Eduardo Cruz on 70-97-1470Ychsjmipve Ql (U)3+HighNegativePremier Health Miami [facility] Hospital South Hyaline casts [#/area] in Urine sediment by Automated countOrdered By: Eduardo Cruz on 60-39-6873Ilvwkjb casts Auto (Urine sed) [#/Area]None [LPF]0-8Prem[facility] Hospital SouthKetones [Presence] in Urine by Test stripon 12-02-2024 Ketones Ql (U)NegativeNormalNegativeNOMS HealthcareComment on above:Order Comment: Comment c/o urinary symptoms or increased blood pressure Name Collection Type:: VoidedPerformed By: #### ADDONUAPLUS #### [facility] [address] [place], [place] [id number] USALeukocyte esterase [Presence] in Urine by Test stripon 73-28-4924Inufsqeif esterase Test strip Ql (U)NegativeNormalNegativeNOMS HealthcareComment on above:Order Comment: Comment c/o urinary symptoms or increased blood pressure Name Collection Type:: VoidedPerformed By: #### ADDONUAPLUS #### [facility] [address] [place], [place] [id number] USALeukocytes [#/area] in Urine sediment by Automated count Ordered By: Eduardo Cruz on 45-20-3654JNE Auto (Urine sed) [#/Area]1-2 [HPF]0-4 [facility] SouthMucus [Presence] in Urine by AutomatedOrdered By: Eduardo Cruz on 07-66-9728Twdef Auto Ql (U)1+ [LPF]AbnormalPremier Health Miami Valley Hospital SouthNitrite Test strip Ql (U)Ordered By: Eduardo Cruz on 73-74-3947Jaxwbxd Ql (U)NegativeNegKettering Health Greene MemorialProtein Test strip (U) [Mass/Vol]Ordered By: Eduardo Cruz on 42-87-5641Tgzdzcu (U) [Mass/Vol]NegativeNegativeParkview Health Montpelier Hospitalpecific gravity Test strip (U) [Rel density]Ordered By: Eduardo Cruz on 43-72-3627Xvmwxfoz gravity (U) [Rel density]1.0171.001-1.030Prem[facility] Hospital SouthUrobilinogen Test strip (U) [Mass/Vol]Ordered By: Eduardo Cisneroscarlos on 98-42-5992Izwrpkewigdi (U) [Mass/Vol]Normal mg/dLNormCentervillepH of Urine by Test stripon 90-35-3746eM (U)5.5 [pH]Normal5.0-9.0NOMS HealthcareComment on above:Order Comment: Comment c/o urinary symptoms or increased blood pressure Name Collection Type:: VoidedPerformed By: #### ADDONUAPLUS #### [place] [address] USABasophils Auto (Bld) [#/Vol]Ordered By: Elizabeth Osborne ([place]) on 08-11-0706Xmgjrrjax (Bld) [#/Vol]0.0 10 3/uL0.0-0.1FMercy Health Springfield Regional Medical CenterBasophils/100 WBC Auto (Bld)Ordered By: Elizabeth Osborne ([place]) on 74-89-5758Oblsfqcxe/100 WBC (Bld)0.3 %0.2-2.0[facility] Eosinophils/100 WBC Auto (Bld)Ordered By: (Roman) Elizabeth Osborne on 12-01-2024 Eosinophils/100 WBC (Bld)1.8 %0.9-7.0[facility] Erythrocyte distribution width Auto (RBC) [Ratio]Ordered By: Elizabeth Osborne ([place]) on 95-79-9020Ihdguvhlpsl distribution width (RBC) [Ratio]14.0 %11.0-15.0 [facility] SouthGlobulin Calc (S) [Mass/Vol]Ordered By: ([place]) Elizabeth Osborne on 92-25-6235Vgputzdi (S) [Mass/Vol]3.6 g/dLPremier Health Miami Valley Hospital SouthGlomerular filtration rate (GFR) estimation in non- AmericanOrdered By: (Roman) Elizabeth [place] on 08-30-7527ZYN/1.73 sq M.predicted among non-blacks MDRD (S/P/Bld) [Vol rate/Area]mL/min/{1.73_m2}>=60 mL/min/1.73m 2FMercy Health Springfield Regional Medical CenterHematocrit Auto (Bld) [Volume fraction]Ordered By: (Roman) Elizabeth Osborne on 59-56-4310Cragydsvkq (Bld) [Volume fraction]38.0 %36.0-48.0Prem[facility] SouthHemoglobin [Mass/volume] in BloodOrdered By: (Roman) Elizabeth Osborne on 79-49-4551Wnstabgmlj (Bld) [Mass/Vol]13.0 g/dL12.0-16.0[facility] SouthLaboratory - Chemistry and Chemistry - challengeOrdered By: (Roman) Elizabeth Osborne on 81-16-2811Sbwrcwwap Ql (U)NegativeNEGATIVEPremier Health Miami [facility] Hospital South Glucose (U) [Mass/Vol]NegativeNEGATIVEPremier Health Miami Valley Hospital SouthKetones Ql (U)NegativeNEGATIVEPremier Health Miami Valley Hospital SouthpH (U)6.0 [pH]5.0-9.0 [facility]pelier Hospitalpecific gravity (U) [Rel density]1.025 1.005-1.025Prem[facility] SouthUrobilinogen Qn (U)1.0 {Fabián'U}/dL0.2-1.0[facility] SouthAlbumin [Mass/Vol]3.1 g/dL Low3.4-5.0[facility] SouthALP [Catalytic activity/Vol]45 U/LLow 46-116Prem[facility] SouthALT [Catalytic activity/Vol]20 U/L14-59 [facility] SouthAST [Catalytic activity/Vol]14 U/TOby68-57 [facility] SouthBilirubin [Mass/Vol]0.4 mg/dL0.2-1.0[facility] SouthCalcium [Mass/Vol]8.6 mg/dL8.5-10.1FMercy Health Springfield Regional Medical CenterChloride [Moles/Vol]106 mmol/Y38-296LjldpokdsPremier Health Miami Valley Hospital SouthCO2 [Moles/Vol]25.7 mmol/L21.0-32.0[facility] Creatinine [Mass/Vol]0.37 mg/dLLow0.55-1.02[facility] GFR/1.73 sq M.predicted MDRD (S/P/Bld) [Vol rate/Area]mL/min/{1.73_m2}>=60 mL/min/1.73m 2FMercy Health Springfield Regional Medical CenterGlucose [Mass/Vol]61 mg/dLLow 74-106Prem[facility] SouthPotassium [Moles/Vol]3.9 mmol/L3.5-5.1 [facility] SouthProtein [Mass/Vol]6.7 g/dL6.4-8.2FSt. Francis Hospitalodium [Moles/Vol]139 mmol/O257-768BculxinjiPremier Health Miami Valley Hospital SouthUrea nitrogen [Mass/Vol]3.0 mg/dLLow7.0-18.0[facility] SouthUrea nitrogen/Creatinine [Mass ratio]8.1 mg/mgPremier Health Miami Valley Hospital SouthLaboratory - Hematology and Cell countsOrdered By: Elizabeth Osborne ([place]) on 53-26-9674Utkrbmcf granulocytes/100 WBC (Bld)1.0 %High0.0-0.5 [facility] SouthLaboratory - Specimen informationOrdered By: Elizabeth Osborne ([place]) on 95-90-4826Ybuxzhqivh (U)CLEARCLEARFMercy Health Springfield Regional Medical CenterColor (U)LT. YELLOWYELLOWPremier Health Miami Valley Hospital South Laboratory - UrinalysisOrdered By: Elizabeth Osborne ([place]) on 54-16-7401Fsqnxrdvm esterase Test strip Ql (U)NegativeNEGATIVEPremier Health [facility] Hospital South Nitrite Ql (U)NegativeNEGATIVEPremier Health [facility] Hospital SouthProtein Ql (U) NegativeNEG/TRACEPremier Health Miami [facility] Hospital SouthLeukocytes [#/volume] corrected for nucleated erythrocytes in Blood by Automated counOrdered By: (Owens) Elizabeth Osborne on 38-21-7186XFP corrected for nucl RBC Auto (Bld) [#/Vol]10.0 10 3/uL4.0-11.0[facility] SouthLymphocytes Auto (Bld) [#/Vol]Ordered By: (Owens) Elizabethnura Thomason on 74-21-7388Gryaydbzykn (Bld) [#/Vol]2.2 10 3/uL1.2-3.8[facility] SouthLymphocytes/100 WBC Auto (Bld)Ordered By: (Owens) Elizabethnura Thomason on 18-61-7650Iiyjrcjadtx/100 WBC (Bld)22.1 %20.5-60.0[facility] Auto (RBC) [Entitic mass]Ordered By: (Owens) Elizabethnura Thomason on 79-08-3106KVQ (RBC) [Entitic mass] 29.8 pg26.7-34.0[facility] Hospital SouthMCHC Auto (RBC) [Mass/Vol] Ordered By: (Owens) Elizabethnura Thomason on 64-70-6902HCQH (RBC) [Mass/Vol]34.2 g/dL 29.9-35.2FMercy Health Springfield Regional Medical CenterMCV Auto (RBC) [Entitic vol]Ordered By: (Owens) Elizabethnura Thomason on 02-98-5481XGF (RBC) [Entitic vol]87.2 fL81.0-99.0 [facility] SouthMonocytes Auto (Bld) [#/Vol]Ordered By: (Owens) Elizabethnura Thomason on 29-20-7701Emgjxxnmr (Bld) [#/Vol]0.7 10 3/uL0.3-0.8 [facility] SouthMonocytes/100 WBC Auto (Bld)Ordered By: (Owens) Elizabeth India on 41-80-8138Vxaudtjxt/100 WBC (Bld)6.5 %1.7-12.0 [facility] SouthNeutrophils Auto (Bld) [#/Vol]Ordered By: (Owens) Elizabeth [place] on 79-23-5331Gtgnqqaatep (Bld) [#/Vol]6.9 10 3/uLHigh 1.4-6.5FMercy Health Springfield Regional Medical CenterNeutrophils/100 WBC Auto (Bld)Ordered By: Angelina) Elizabeth Osborne on 26-10-2293Nlzjjpxltcm/100 WBC (Bld)68.3 %43.0-75.0 [facility] SouthNo Panel InformationOrdered By: (Roman) Elizabeth Osborne on 83-59-5715Tgopp Microscopic ReviewNOPremier Health Miami Valley Hospital SouthUrine Occult BloodNegativeNEGATIVEPrem[facility] Health [facility] South Eosinophils # (Auto)0.2 10 3/uL0.0-0.7FMercy Health Springfield Regional Medical CenterImmature Granulocyte # (Auto)0.10 10 3/uLHigh0.00-0.03[facility] Platelet mean volume Auto (Bld) [Entitic vol]Ordered By: Elizabeth Osborne ([place]) on 89-20-5927Uxbuwdwy mean volume (Bld) [Entitic vol]8.3 fLLow9.5-13.5FMercy Health Springfield Regional Medical CenterPlatelets Auto (Bld) [#/Vol]Ordered By: Angelina) Elizabeth Osborne on 36-48-4222Nrlhjisep (Bld) [#/Vol]177 10 3/rT539-283WmubsmfgbPremier Health Miami Valley Hospital SouthRBC Auto (Bld) [#/Vol]Ordered By: Angelina) Elizabeth Osborne on 02-00-4994QJN (Bld) [#/Vol]4.36 10 6/uL4.20-5.40Park[facility] Health Montpelier Hospitalerum or plasma albumin/globulin mass ratioOrdered By: (Roman) Elizabeth Osborne on 34-36-0823Wnkibcg/Globulin [Mass ratio]0.9 {ratio}[facility] Hospitalerum or plasma anion gap determinationOrdered By: Angelina) Elizabeth Osborne on 33-51-5381Tuqzt gap [Moles/Vol]11.2 mmol/LFMercy Health Springfield Regional Medical CenterBasophils Auto (Bld) [#/Vol]Ordered By: Chris Dickerson on 54-09-6502Pcotzqlas (Bld) [#/Vol]0.0 10 3/uL0.0-0.1FMercy Health Springfield Regional Medical CenterBasophils/100 WBC Auto (Bld)Ordered By: Chris Dickerson on 11-30-2024 Basophils/100 WBC (Bld)0.2 %0.2-2.0[facility] Eosinophils/100 WBC Auto (Bld)Ordered By: Chirs Dickerson on 11-30-2024 Eosinophils/100 WBC (Bld)1.7 %0.9-7.0[facility] Erythrocyte distribution width Auto (RBC) [Ratio]Ordered By: Chris Dickerson on 95-32-9350Ytqjhapxxlp distribution width (RBC) [Ratio]14.1 %11.0-15.0[facility] SouthGlobulin Calc (S) [Mass/Vol]Ordered By: Chris Dickerson on 25-58-4729Qwgbksxa (S) [Mass/Vol]3.3 g/dLPremier Health Miami Valley Hospital South Glomerular filtration rate (GFR) estimation in non- AmericanOrdered By: Chris Dickerson on 24-12-7495OPO/1.73 sq M.predicted among non-blacks MDRD (S/P/Bld) [Vol rate/Area]mL/min/{1.73_m2}>=60 mL/min/1.73m 2FMercy Health Springfield Regional Medical CenterHematocrit Auto (Bld) [Volume fraction]Ordered By: Chris Dickerson on 90-23-9182Eeycqomgqv (Bld) [Volume fraction]36.2 %36.0-48.0[facility] SouthHemoglobin [Mass/volume] in BloodOrdered By: Chris Dickerson on 64-58-9372Nncbqvvlbb (Bld) [Mass/Vol]12.6 g/dL12.0-16.0[facility] SouthLaboratory - Chemistry and Chemistry - challengeOrdered By: Chris Dickerson on 75-42-4364Eqthvkvuf Ql (U)NegativeNEGATIVEPremier Health Miami [facility] Hospital SouthGlucose (U) [Mass/Vol]NegativeNEGATIVEPremier Health [facility] Hospital SouthKetones Ql (U)NegativeNEGATIVEPremier Health Miami [facility] Hospital SouthpH (U)6.0 [pH]5.0-9.0[facility] Hospitalpecific gravity (U) [Rel density] 1.0151.005-1.025Prem[facility] SouthUrobilinogen Qn (U)1.0 {Fabián'U}/dL0.2-1.0[facility] SouthAlbumin [Mass/Vol]3.1 g/dL Low3.4-5.0[facility] SouthALP [Catalytic activity/Vol]47 U/L 46-116Prem[facility] SouthALT [Catalytic activity/Vol]20 U/L14-59 [facility] SouthAST [Catalytic activity/Vol]12 U/SQxh17-94 [facility] SouthBilirubin [Mass/Vol]0.3 mg/dL0.2-1.0[facility] SouthBilirubin.direct [Mass/Vol]0.1 mg/dL0.0-0.2FMercy Health Springfield Regional Medical CenterCalcium [Mass/Vol]8.8 mg/dL8.5-10.1FMercy Health Springfield Regional Medical CenterChloride [Moles/Vol]108 mmol/INser10-171JzcdwutgzPremier Health [facility] Hospital SouthCO2 [Moles/Vol]26.0 mmol/L21.0-32.0[facility] Creatinine [Mass/Vol]0.32 mg/dLLow0.55-1.02[facility] GFR/1.73 sq M.predicted MDRD (S/P/Bld) [Vol rate/Area]mL/min/{1.73_m2}>=60 mL/min/1.73m 2FMercy Health Springfield Regional Medical CenterGlucose [Mass/Vol]74 mg/dG66-565 [facility] SouthPotassium [Moles/Vol]4.1 mmol/L3.5-5.1FMercy Health Springfield Regional Medical CenterProtein [Mass/Vol]6.4 g/dL6.4-8.2FSt. Francis Hospitalodium [Moles/Vol]142 mmol/W259-928MiswobwavPremier Health Miami Valley Hospital SouthUrate [Mass/Vol]3.0 mg/dL2.6-6.0[facility] SouthUrea nitrogen [Mass/Vol]7.0 mg/dL7.0-18.0[facility] SouthUrea nitrogen/Creatinine [Mass ratio]21.9 mg/mgPremier Health Miami [facility] South Laboratory - Hematology and Cell countsOrdered By: Chris Dickerson on 11-30-2024 Immature granulocytes/100 WBC (Bld)0.7 %High0.0-0.5FMercy Health Springfield Regional Medical CenterLaboratory - Specimen informationOrdered By: Chris Dickerson on 11-30-2024 Appearance (U)CLEARCLEARFMercy Health Springfield Regional Medical CenterColor (U)LT. YELLOW YELLOWPremier Health Miami Valley Hospital SouthLaboratory - UrinalysisOrdered By: Chris Dickerson on 79-66-9622Fhjwfqktq esterase Test strip Ql (U)SMALLAbnormal NEGATIVEPremier Health Miami Valley Hospital SouthMucus Ql (Urine sed)TRACEAbnormalNONE SEENPremier Health [facility] Hospital SouthNitrite Ql (U)NegativeNEGATIVEPrem[facility] Health [facility] SouthProtein Ql (U)NegativeNEG/TRACEPremier Health [facility] Hospital SouthLeukocytes [#/volume] corrected for nucleated erythrocytes in Blood by Automated counOrdered By: Chris Dickerson on 29-59-0297XBZ corrected for nucl RBC Auto (Bld) [#/Vol]8.7 10 3/uL4.0-11.0[facility] Lymphocytes Auto (Bld) [#/Vol]Ordered By: Chris Dickerson on 62-92-7070Zcepgcwgnsd (Bld) [#/Vol]2.0 10 3/uL1.2-3.8[facility] SouthLymphocytes/100 WBC Auto (Bld)Ordered By: Chris Dickerson on 72-63-3816Ilmvodteewl/100 WBC (Bld) 22.9 %20.5-60.0[facility] Auto (RBC) [Entitic mass] Ordered By: Chris Dickerson on 89-87-4355MPZ (RBC) [Entitic mass]30.0 pg26.7-34.0 [facility] SouthMCHC Auto (RBC) [Mass/Vol]Ordered By: Chris Dickerson on 53-15-3229OMLR (RBC) [Mass/Vol]34.8 g/dL29.9-35.2FMercy Health Springfield Regional Medical CenterMCV Auto (RBC) [Entitic vol]Ordered By: Chris Dickerson on 58-81-0693QWI (RBC) [Entitic vol]86.2 fL81.0-99.0[facility] SouthMonocytes Auto (Bld) [#/Vol]Ordered By: Chris Dickerson on 11-30-2024 Monocytes (Bld) [#/Vol]0.6 10 3/uL0.3-0.8[facility] Monocytes/100 WBC Auto (Bld)Ordered By: Chris Dickerson on 92-57-7010Exjgszuyq/100 WBC (Bld)7.2 %1.7-12.0[facility] SouthNeutrophils Auto (Bld) [#/Vol]Ordered By: Chris Dickerson on 00-56-3670Jicoddzktjs (Bld) [#/Vol]5.9 10 3/uL1.4-6.5FMercy Health Springfield Regional Medical CenterNeutrophils/100 WBC Auto (Bld) Ordered By: Chris Dickerson on 14-08-7234Acszhbiydhv/100 WBC (Bld)67.3 %43.0-75.0 [facility] SouthNo Panel InformationOrdered By: Chris Dickerson on 03-86-0716Avdso BacteriaMODERATE #/HPFAbnormalNONE [facility] HospitalUrine Culture ReflexedYE-[facility] Urine Occult BloodNegativeNEGATIVEPremier Health Miami Valley Hospital SouthUrine Other CastsNONE SEEN #/LPFNONE [facility] HospitalUrine Other CrystalsNone Seen #/HPFNone [facility] CampusUrine RBC0-2 #/HPF0-2FMercy Health Springfield Regional Medical CenterUrine Squamous Epithelial CellsFEW #/LPFAbnormalNONE/RAREPremier Health [facility] Hospital SouthUrine WBC0-2 #/HPF AbnormalNONE [facility] HospitalEosinophils # (Auto)0.2 10 3/uL0.0-0.7FMercy Health Springfield Regional Medical CenterImmature Granulocyte # (Auto)0.06 10 3/uLHigh0.00-0.03[facility] SouthPlatelet mean volume Auto (Bld) [Entitic vol]Ordered By: Chris Dickerson on 72-23-1419Rwfzsjkb mean volume (Bld) [Entitic vol]8.7 fLLow9.5-13.5FMercy Health Springfield Regional Medical CenterPlatelets Auto (Bld) [#/Vol]Ordered By: Chris Dickerson on 57-71-2757Pbkelgzuy (Bld) [#/Vol] 185 10 3/gC509-447NfohadoerPremier Health Miami Valley Hospital SouthRBC Auto (Bld) [#/Vol]Ordered By: Chris Dickerson on 99-38-9262VZR (Bld) [#/Vol]4.20 10 6/uL4.20-5.40[facility]pelier Hospitalerum or plasma albumin/globulin mass ratioOrdered By: Chris Dickerson on 06-86-5767Attbgmc/Globulin [Mass ratio]0.9 {ratio}[facility] Hospitalerum or plasma anion gap determinationOrdered By: Chris Dickerson on 49-38-7009Blvlw gap [Moles/Vol]12.1 mmol/LFMercy Health Springfield Regional Medical CenterUrine Cultureon 08-44-8425Boevydiw identified Cx Nom (U)50,000 colonies/ml mixed bacterial skin contaminants 2 Days PERFORMED BY: [place] [address] MAGISTRATE DAMIÁN DOSHI M.D.NormalHendry Regional Medical Center Physician GroupComment on above: Performed By: #### CUU #### [place] [address] USARECURRENT VAGINITIS (HTRX)on 39-23-9661OOCTCVZDH VAGINAE0 NOMS HealthcareATOPOBIUM VAGINAENot detectedNOMS HealthcareBVAB 2,3 (BACTERIAL VAGINOSIS ASSOCIATED BACTERIA 2, 3); MOBILUNCUS LLP0BFKZ HealthcareBVAB 2,3 (BACTERIAL VAGINOSIS ASSOCIATED BACTERIA 2, 3); MOBILUNCUS SPPNot detectedNOMS HealthcareCANDIDA ALBICANS, PARAPSILOSIS, [id number] HealthcareCANDIDA ALBICANS, PARAPSILOSIS, TROPICALISNot detectedNOMS HealthcareCANDIDA GLABRATA0 NOMS HealthcareCANDIDA GLABRATANot detectedNOMS HealthcareCANDIDA BDNVVL2WWHC HealthcareCANDIDA KRUSEINot detectedNOMS HealthcareCHLAMYDIA [id number] HealthcareCHLAMYDIA TRACHOMATISNot detectedNOMS HealthcareGARDNERELLA VAGINALIS0 NOMS HealthcareGARDNERELLA VAGINALISNot detectedNOMS HealthcareMEGASPHAERA (TYPES 1, 2)0NOMS HealthcareMEGASPHAERA (TYPES 1, 2)Not detectedNOMS Healthcare MYCOPLASMA XFQTQAAIUC3RRYP HealthcareMYCOPLASMA GENITALIUMNot detectedNOMS HealthcareNEISSERIA [id number] HealthcareNEISSERIA GONORRHOEAENot detected NOMS HealthcareTRICHOMONAS RBOSUBQKZ2KXRQ HealthcareTRICHOMONAS VAGINALISNot detectedNOMS HealthcareNOMS HealthcareALL THYROID STIM HORMONEon 30-18-6000ENR Qn1.702 m[IU]/LNOMS HealthcareCLINISYNCNOMS HealthcareAlpha-fetoprotein (AFP) measurement (rhmqrkzm-hk-wyhgnu)Ordered By: Les Martinez on 31-78-2430RJS [MoM] 0.87.[facility] SouthAssess gestational ageOrdered By: Les Martinez on 66-35-8190Veqoovlziwd age18.0 weeks.[facility] Estimation of maternal age-specific risk of Down syndrome birthOrdered By: Les Martinez on 59-18-6143Bis [Time][age] yr.[facility] SouthInsulin dependent diabetes mellitus detectionOrdered By: Les Martinez on 11-20-2024 Insulin dependent diabetes mellitus QlNo.[facility] Interpretation of serum or plasma second trimester quad maternal screen (narrative reOrdered By: Les Martinez on 70-63-7800Kkqmjb trimester quad maternal screen Gonzales [Interp]Comment.[facility] SouthComment on above: Interpretation: Screen NegativeThis result is [...] and older.Second trimester quad maternal screen Gonzales [Interp]Negative.[facility] SouthLaboratory - Chemistry and Chemistry - challengeOrdered By: Les Martinez on 24-15-1927CFJ Qn1.702 m[IU]/L 0.358-3.740[facility] SouthNo Panel InformationOrdered By: Les Martinez on 32-94-8783APO Triple Screen CommentComment.[facility] SouthComment on above:Gisel Gandhi, Ph.D., DABCCDirectorReferences: Available Upon Request.Multiples Of Median Cutoffs For AFP ElevationsSingleton 2.5 Black 2.8IDD 2.0 Twins 4.5 Abbreviation DefinitionsIDD - Insulin Dep DiabetesOSBR - Open Spina Bifida RiskFor further inquiries contact [employer] at [phone].This test was developed and its performance characteristicsdetermined by [employer]. It has not been cleared or approvedby the Food and Drug Administration.Performed at: [facility] ScaleMP [id number] [place], [place] [id number] Director: Lorena Ellis [facility], Phone: [phone] Fetoprotein Results ReceivedReport.[facility] SouthGestational Age Calculation MethodUltrasound.[facility] SouthComment on above:18.0 on 11/20/2024Recalculations are not recommended when gestational datingby LMP and ultrasound are within 10 days. Maternal Quad Test [id number].[facility] SouthMaternal RaceOther .[facility] SouthMultiple PregnancyNo.[facility]pelier Hospitalerum or plasma furnk-2-fkrxmdcescn measurement (mass/volume) Ordered By: Les Martinez on 32-28-3938NZF [Mass/Vol]27.6 ng/mL.[facility] SouthUrinalysis macro (dipstick) panel (U)on 14-13-0857Mjvllrljn, UA NegativeNegative - 4(70) +++ mg/dLNOMS HealthcareBlood, UANegativeNegative - 50 Yehuda/mcLNOMS HealthcareClarity, UAClearNOMS HealthcareColor, UAYellowNOMS HealthcareGlucose, UANegativeNegative - 2000(110) ++++ mg/dLNOMS Healthcare Interpretation and review of laboratory resultsAbnormalNOMT HealthcareKetones, UANegativeNegative - 160(16) ++++ mg/dLHarry S. Truman Memorial Veterans' HospitalLeukocytes, UA2+Negative - 500+++ Kourtney/mcLNOAudrain Medical CenterNitrite, UANegativeNegative - PositiveNOMT HealthcarepH, UA85 - 9NOMT HealthcareProtein, UANegativeNegative - 2000(20) ++++ mg/dLHarry S. Truman Memorial Veterans' HospitalSpec Grav, UA1.011 - 1.03NOAudrain Medical CenterUrobilinogen, UA1.0 0.2 - 12 mg/dLTransylvania Regional HospitalLaboratory - Chemistry and Chemistry - challengeOrdered By: Chris Dickerson on 80-45-9508Vkkwpcwdv Ql (U)Negative NEGATIVEPremier Health Miami Valley Hospital SouthGlucose (U) [Mass/Vol]NegativeNEGATIVE [facility] SouthKetones Ql (U)NegativeNEGSycamore Medical CenterpH (U)7.5 [pH]5.0-9.0[facility] Specific gravity (U) [Rel density]1.0101.005-1.025[facility] SouthUrobilinogen Qn (U)1.0 {Fabián'U}/dL0.2-1.0[facility] SouthLaboratory - Specimen informationOrdered By: Chris Dickerson on 11-17-2024 Appearance (U)CLEARCLEARFMercy Health Springfield Regional Medical CenterColor (U)LT. YELLOW YELLOWPremier Health Miami Valley Hospital SouthLaboratory - UrinalysisOrdered By: Chris Dickerson on 49-15-0344Qnggljyxl esterase Test strip Ql (U)NegativeNEGATIVE [facility] SouthMucus Ql (Urine sed)NONE SEENNONE [facility]walk Memorial HospitalNitrite Ql (U)NegativeNEGSycamore Medical CenterProtein Ql (U)NegativeNEG/TRACEPremier Health Miami Valley Hospital SouthNo Panel InformationOrdered By: Chris Dickerson on 66-70-6543Nglkr BacteriaTRACE #/HPF AbnormalNONE [facility] Memorial HospitalUrine Culture ReflexedNO [facility] SouthUrine Occult BloodNegativeNEGSycamore Medical CenterUrine Other CastsNONE SEEN #/LPFNONE SEENPerson Memorial Hospitalelands Regional Medical CenterUrine Other CrystalsNone Seen #/HPFNone [facility] CampusUrine RBCNONE SEEN #/HPF0-2FMercy Health Springfield Regional Medical CenterUrine Squamous Epithelial CellsRARE #/LPFNONE/RAREPremier Health Miami Valley Hospital SouthUrine WBCNONE SEEN #/HPFNONE [facility] Ultrasound - Officeon 60-87-4666Torrirtqz Study observation (narrative)ProMedicNorthwest Medical Center SystemUrinalysis macro (dipstick) panel (U)on 73-98-4139Aeqcoxuuk, UA NegativeNegative - 4(70) +++ mg/dLNOMS HealthcareBlood, [...] HealthcareAppearance of UrineOrdered By: Kassidy Arriaza on 46-77-3640Ukokzywwsq (U)ClearNormalClearPremier Health Miami [facility] Hospital SouthComment on above:Order Comment: Name Collection Type:: Clean- Voided MidstreamPerformed By: #### UA, CUU #### [place] [address] USABilirubin Test strip Ql (U)Ordered By: Kassidy Arriaza on 28-49-8308Htsckhywm Ql (U)NegativeNegKettering Health Greene Memorial Chlamydia/GC Amplificationon 42-28-4148Rblqwqvlc Trachomotis, NAANegativeNormal NegativeThe Critical Access Hospital Physician GroupComment on above:Order Comment: SOURCE OF SPECIMEN: GenitalPerformed By: #### GCCHLAMAMP #### [facility] , #### CUGEN #### [place] [address] USANeisseria Gonorrhoeae, NAANegativeNormalNegativeThe Critical Access Hospital Physician GroupComment on above:Order Comment: SOURCE OF SPECIMEN: GenitalResult Comment: Performed at: = - [facility] [id number] Tug Master: Dagmar Love MD, Phone: [phone] PERFORMED BY: [place] [address] MAGISTRATE DAMIÁN DOSHI M.D.Performed By: #### GCCHLAMAMP #### [facility] , #### CUGEN #### [place] [address] USAColor of Urine by AutoOrdered By: Kassidy Arriaza on 88-49-0793Hwsnp (U)ColorlessNormalYCleveland ClinicComment on above:Order Comment: Name Collection Type:: Clean-Voided MidstreamPerformed By: #### UA, CUU #### [place] [address] USAGenital Cultureon 26-06-8940Qmumaas CultureGenital Results Light Normal Urogenital Damián 2 Days No More GC Specimen not tested for Neisseria gonorrheae PERFORMED BY: [place] [address] MAGISTRATE DAMIÁN DOSHI M.D.NormalThe Critical Access Hospital Physician GroupComment on above: Performed By: #### GCCHLAMAMP #### [facility] , #### CUGEN #### [place] [address] USAGenital specimen bacteria identification by aerobic cultureOrdered By: Kassidy Arriaza on 22-30-6840Kmsjfgus identified Aer cx Nom (Genital specimen)[facility] SouthGlucose [Mass/volume] in Urine by Test stripOrdered By: Kassidy Arriaza on 84-18-1776Hspiily Test strip (U) [Mass/Vol]Normal mg/dLNormCentervilleHemoglobin Test strip Ql (U)Ordered By: Kassidy Arriaza on 74-33-6439Inqfosccwl Ql (U)Negative [facility] Methodist HospitalKetones [Presence] in Urine by Test stripOrdered By: Kassidy Arriaza on 78-52-5062Fafcurc Ql (U)TraceNormalFirelands Regional Medical Center South CampusComment on above:Order Comment: Name Collection Type:: Clean-Voided MidstreamPerformed By: #### UA, CUU #### [facility] [address] [place] [address] USALaboratory - Microbiology and Antimicrobial susceptibility Ordered By: Kassidy Arriaza on 10-18-2024. trachomatis DNA AC+probe Ql (Unsp spec)NegativeNegKettering Health Greene MemorialN. gonorrhoeae DNA AC+probe Ql (Unsp spec)NegativeNegKettering Health Greene MemorialComment on above:Performed at: = - [facility] [id number] Director: Dagmar Love MD, Phone: [phone] esterase [Presence] in Urine by Test stripOrdered By: Kassidy Arriaza on 10-18-2024 Leukocyte esterase Test strip Ql (U)NegativeNormalOhioHealth Pickerington Methodist HospitalComment on above:Order Comment: Name Collection Type:: Clean- Voided MidstreamPerformed By: #### UA, CUU #### [facility] [address] [place] [address] USANitrite Test strip Ql (U)Ordered By: Kassidy Arriaza on 87-90-9740Ujsrwsr Ql (U)NegativeNegKettering Health Greene MemorialProtein Test strip (U) [Mass/Vol]Ordered By: Kassidy Arriaza on 73-19-5104Cvkkkbu (U) [Mass/Vol]NegativeNegMarymount Hospitalpecific gravity Test strip (U) [Rel density]Ordered By: Kassidy Arriaza on 31-08-5479Aulmvslt gravity (U) [Rel density]1.0071.001-1.030[facility] SouthUS OB <= 14 weeks fetuson 56-95-6985IY OB <= 14 weeks [facility] [place] [address] [place], [place] [id number] Ultrasound Report Signed Patient: Jaz Sanders MR#: [id number] : 1995 Acct:[id number] Age/Sex: 29 / F ADM Date: 10/18/24 Loc: ER Room: Type: [facility] ER Attending Dr: Ordering Provider: Kassidy Arriaza [...] Jr., DRenaeORenae 10/18/2024 2:21 PM Dictation Location: [place] [address] Tech: Natalie Haji Transcribed By: MAITE 10/18/24 1421 Dictated By: Sravan Dickinson Jr, DO 10/18/24 1419 Signed By: 10/18/24 1421NoCape Fear Valley Hoke Hospital Physician GroupUnlisted Lab Teston 10-18-2024 ProMMaple Grove Hospital SystemUrinalysison 80-87-5597Ykiczanic,UrineNegativeNormal NegativeThe Critical Access Hospital Physician GroupComment on above:Order Comment: Name Collection Type:: Clean-Voided MidstreamPerformed By: #### UA, CUU #### [place] [id number] USAGlucose Ql (U)NormalNormalNormMemorial Hospital Pembroke Physician GroupComment on above:Order Comment: Name Collection Type:: Clean-Voided MidstreamPerformed By: #### UA, CUU #### [place] [address] USANitrite,UrineNegativeNormalNegativeHendry Regional Medical Center Physician GroupComment on above:Order Comment: Name Collection Type:: Clean-Voided MidstreamPerformed By: #### UA, CUU #### [place] [address] USAOccult Blood,UrineNegativeNormalNegativeThe Critical Access Hospital Physician GroupComment on above:Order Comment: Name Collection Type:: Clean- Voided MidstreamResult Comment: PERFORMED BY: [place] [address] MAGISTRATE DAMIÁN DOSHI M.D.Performed By: #### UA, CUU #### [place] [address] USAProtein,UrineNegativeNormalNegativeHendry Regional Medical Center Physician GroupComment on above:Order Comment: Name Collection Type:: Clean-Voided MidstreamPerformed By: #### UA, CUU #### [place] [address] USASpecificy [place],Urine1.480Cfczvp6.001-1.030[facility] Physician GroupComment on above:Order Comment: Name Collection Type:: Clean- Voided MidstreamPerformed By: #### UA, CUU #### [place] [address] USAUrobilinogen,UrineNormalNormalNormalThe Critical Access Hospital Physician GroupComment on above:Order Comment: Name Collection Type:: Clean- Voided MidstreamPerformed By: #### UA, CUU #### [place] [address] USAUrine Cultureon 80-61-2648Snzfdfio identified Cx Nom (U) <9,000 colonies/ml mixed bacterial skin contaminants 2 Days PERFORMED BY: [place] [address] MAGISTRATE DAMIÁN DOSHI M.D.NormalHendry Regional Medical Center Physician GroupComment on above: Performed By: #### ACESAR, CUU #### [facility] [address] [place] [address] USAUrine cultureOrdered By: Kassidy Arriaza on 10-18-2024 Bacteria identified Cx Nom (U)2 DaysPremier Health [facility] South Urobilinogen Test strip (U) [Mass/Vol]Ordered By: Kassidy Arriaza on 10-18-2024 Urobilinogen (U) [Mass/Vol]Normal mg/dLNormalPremier Health Miami Valley Hospital SouthpH of Urine by Test stripOrdered By: Kassidy Arriaza on 35-87-6020uL (U)7.0 [pH] Normal5.0-9.0[facility] SouthComment on above:Order Comment: Name Collection Type:: Clean-Voided MidstreamPerformed By: #### CAESAR, CUU #### [facility] [address] [place] [address] USAUnlisted Lab Teston 82-37-7649DjdXyylxs Health SystemBOX TESTon 77-23-4072OVM TEST SENT OUTUNITYNOMT UweyovhzrtPFF7ECJZVGKKT Healthcare CHT68-24-38WLZH HealthcareUNITY BOX CLINISYHIGHLAND RIDGE [facility]OSPITAL HealthcareCoding Summaryon 00-94-0008Kdyeae SummaryHTMLBase 64 LqnwirbzEQh0vTp+PGhlYWQ+LM9UVZAjW64uuIGgzI5tV9SKLGaAOwicJIZDFJqVQdLyrlRnIX3iuHFz ZXJu [file] b2x (more content not included)...[facility] Bl[facility] Valley HospitalCompliance Drug Analysis, [facility] 93-12-4146Xhpmbiy LCFINALInvalid Interpretation [facility]st HospitalComment on above:Result Comment: TOXASSURE COMP DRUG [...] test is not intended to distinguish between ajpoi-3-uypdkcnfbrhsgaryrsgk, the predominant form of THC in most herbal or marijuana-based products, and vkzro-5-vukckmlekwxrfcjkpfdz. Lamotrigine PRESENT Acetaminophen PRESENT Test Result Flag Units Ref Range Creatinine 45 mg/dL >=20 Declared Medications: Medication list was not provided. For clinical consultation, please call . ToxAssure, ToxAssure FLEX or MAT drug testin -Technical component - Data analysis performed at [facility], [address] [place] [phone]. [phone]. Tug Master César Bains MD. ToxAssure, ToxAssure FLEX or MAT drug testing: -Technical component - Result certification performed at [facility], [address] [place] [phone]. [phone] Tug Master César Bains MD. Performed At: [employer] [address] [id number] Brendon Galan [facility] Ph:[phone] By: #### [id number] ####[facility] (DEFAULT)[address] [place] [address]L Urineon 09-28-2024 UrineMixed skin, or urogenital damián. Clinically insignificantNormalSelect Medical Specialty Hospital - Cincinnati NorthComment on above:Performed By: #### [id number] ####[facility] (DEFAULT)[address] [place] [address]KGlVk Screen LCon 09-27-2024 HBsAg Screen LCNegativeInvalid Interpretation CodeNegativeSelect Medical Specialty Hospital - Cincinnati North Comment on above:Result Comment: Performed At: [place] [id number] [place], [place] [id number] J Luis Gray PhD Ph:[phone] By: #### [id number], 2876026, 7095375, 80586605, 7170109006, 86101469, 8468287625, [id number]####[facility] (DEFAULT)[address] [place] [address]NKK 4th Gen Screen w Reflex LCon 92-35-2318ORL Scr 4th Gen LCNon-ReactiveInvalid Interpretation Code Non ReactiveSelect Medical Specialty Hospital - Cincinnati NorthComment on above:Result Comment: HIV-1/HIV-2 antibodies and HIV-1 p24 antigen were NOT detected. There is no laboratory evidence of HIV infection. HIV Negative Performed At: [facility] [address] [place], [place] [id number] J Luis Gray PhD Ph:[phone] By: #### [id number] #### [facility] (DEFAULT) [address] [place] [address]XCA, Rfx Qn RPR/Confirm TP LCon 63-56-3474CIE LC Non-ReactiveInvalid Interpretation CodeNon ReactiveSelect Medical Specialty Hospital - Cleveland-Fairhill HospitalComment on above:Performed By: #### [id number], 6083859, 5383220, 14924081, 0966824186, 65476926, 9261771630, 34746789####[facility] (DEFAULT)[address] [place] [address]Tkmxswl Antibodies, IgG LCon 61-42-1579Pvllmoe Antibodies, IgG LC2.78 indexInvalid Interpretation CodeImmune >0.99Mprovidence hospital HospitalComment on above:Result Comment: Non-immune <0.90 Equivocal 0.90 - 0.99 Immune >0.99 Performed At: [facility] [address] [place], [place] [id number] J Luis Gray PhD Ph:[phone] By: #### 46354679, 2471448, 9368046, 42048678, 1832160260, 52077107, 5779684308, 80051487####[facility] (DEFAULT)[address] [place] [address].Auto Diff 1on 75-26-8657Gmqt Lyman %6 %Normal1-12[facility]-Fair[facility] HospitalComment on above:Performed By: #### [id number], 5126484, 2246495, 93151105, 4328940655, 87778188, 6703245549, 96335025####[facility] (DEFAULT)[address] [place] [address] Baso Abs#0.0 s69Lesaen1.0-0.2Mprovidence hospital HospitalComment on above:Performed By: #### 25174520, 0328777, 7507868, 65924779, 8093251694, 16227894, 0311087466, 80024365####[facility] (DEFAULT)[address] [place] [address] Basophils/100 WBC (Bld)0.1 %Low0.2-2.0Macleveland clinic medina hospital HospitalComment on above: Performed By: #### 01726358, 0343407, 4583093, 65170604, 2768788832, 48065865, 1376185267, 93755233####[facility] (DEFAULT)[address] [place] [address] 43675Wqu Abs#0.2 l38Doteon4.0-0.4Macleveland clinic medina hospital HospitalComment on above: Performed By: #### 41567565, 6841426, 8880364, 30850940, 2270148572, 33040231, 0741008275, 92718575####[facility] (DEFAULT)[address] [place] [address]Luvwoicejre/100 WBC (Bld)2.0 %Normal0.9-4.0[facility] Comment on above:Performed By: #### 73789989, 2437454, 6760113, 87676859, 7690207090, 60278587, 8510985524, 34190069####[facility] (DEFAULT)[address] [place] [address]10Cqzsr Abs#2.0 r61Qoberw3.3-2.9Macleveland clinic medina hospital HospitalComment on above:Performed By: #### 87106686, 6839283, 5154311, 06347135, 3112423034, 28491407, 7872828748, 75109186####[facility] (DEFAULT)[address] [place] [address] 39456Wzodcyzrrlu/100 WBC (Bld)26 % Lavhmw93-05Iwsggzkc HospitalComment on above:Performed By: #### 84221087, 7259271, 0645412, 02924299, 0490153677, 85889276, 1949409845, 20925907 ####[facility] (DEFAULT)[address] [place] [address] 26636Dcbc Abs# 0.5 q89Omcxao0.0-0.8[facility] Hospital - Cincinnati NorthComment on above:Performed By: #### 30149187, 4116018, 3189856, 50845863, 5936349217, 03508679, 7030991514, 35252418 ####[facility] (DEFAULT)[address] [place] [address] 40992Fpxd Abs# 5.1 q00Nkxqvf3.5-9.2Mprovidence hospital HospitalComment on above:Performed By: #### 24760639, 2365725, 1805986, 66218592, 0385727508, 05265920, 9755381434, 14860469 ####[facility] (DEFAULT)[address] [place] [address]329 Neutrophils/100 WBC (Bld)66 %Kkawam22-54Ooertvrn HospitalComment on above: Performed By: #### 78775628, 5647835, 6198840, 89250714, 4133738515, 32664897, 3526907591, 19999726####[facility] (DEFAULT)[address] [place] [address] 42375GMPVzhz 02-47-8177XHD and Rh group Nom (Bld)Hx Check: Not Found Anti-A: 4+ Anti-B: 0 Anti-D: 2+ DCon: NT A1: 0 B: 2+ ABORh Interp: A POSInvalid Interpretation [facility]st HospitalComment on above: Performed By: #### 14565179, 0553138, 7263941, 46555104, 0965445605, 28876230, 5797048077, 69596302####[facility] (DEFAULT)[address] [place] [address] 26978FPUE Gelon 69-19-5314NLXD GelNegativeBlanchard Valley Health System [facility] Comment on above:Performed By: #### 56198425, 8318670, 1898911, 97754790, 3297837014, 37216782, 2597816567, 74640878####[facility] (DEFAULT)[address] [place] [address] 400[address]ALO w/ Auto Diffon 53-57-7186Nypozdlyufb distribution width (RBC) [Ratio]13.2 %Vyyoso83.5-15.0[facility] - Cincinnati NorthComment on above:Performed By: #### 25365637, 8394021, 2503215, 26516670, 2422237106, 05662925, 4897859053, 73405829#### [facility] (DEFAULT) [address] [place] [address] 27740Osxirlzjcv (Bld) [Volume fraction]39.9 %Zpwyhg48.7-40.4 [facility] - Cincinnati NorthComment on above:Performed By: #### 65292091, 0939893, 0619839, 98812355, 0741977430, 18689394, 8132487427, 21237380#### [facility] (DEFAULT) [address] [place] [address] 32322Tdetewvviw (Bld) [Mass/Vol]13.9 g/uELmlwyl36.3-15.9 [facility] - Cincinnati NorthComment on above:Performed By: #### 53097608, 6697971, 5594594, 44706407, 5118618870, 08416361, 0311401569, 43116882#### [facility] (DEFAULT) [address] [place] [address] 62336Kka Diff?AutoInvalid Interpretation [facility] Comment on above:Performed By: #### 30637536, 0121554, 5682714, 34099893, 3217150277, 76488124, 8851783711, 73815114#### [facility] (DEFAULT) [address] [place] [address] 91963WKS (RBC) [Entitic mass]29 suDrupks06-60Xyultygy Hospital Comment on above:Performed By: #### 61358490, 5711800, 4951877, 45061587, 6743207772, 74277760, 3067296524, 05880224#### [facility] (DEFAULT) [address] [place] [address] 31921IGAC (RBC) [Mass/Vol]35 g/uFXsrpjg13-44Ususkhjd Hospital Comment on above:Performed By: #### 38523373, 2428573, 6410878, 91583522, 7530894306, 77547370, 6829657399, 25270314#### [facility] (DEFAULT) [address] [place] [address] 18502ISU (RBC) [Entitic vol]84 sMDhpziq11-547Fnocwrox Hospital Comment on above:Performed By: #### 05757202, 6597016, 1139122, 47386364, 4745594998, 79679404, 9085461737, 56079181#### [facility] (DEFAULT) [address] [place] [address] 84172Yvhxagtd492 c86Uzaakk728-895Bubuoahy HospitalComment on above:Performed By: #### 25739275, 4530572, 0832031, 12020179, 0780417562, 71039175, 2732325167, 40061313#### [facility] (DEFAULT) [address] [place] [address] 25809Qcguihxg mean volume (Bld) [Entitic vol]6.3 fLNormal 6.3-10.2MCleveland Clinic Union HospitalComment on above:Performed By: #### 09594586, 7127745, 7961934, 09912245, 3252904085, 12223730, 9845227665, 64083508#### [facility] (DEFAULT) [address] [place] [address] 00145OSA9.76 x09Npdeej8.70-5.30[facility] HospitalComment on above:Performed By: #### 30124244, 3858834, 8144233, 21532257, 2586414478, 69682716, 2559047317, 49343245#### [facility] (DEFAULT) [address] [place] [address] 44797QNH3.8 w27Tpodxs0.5-10.5[facility] - Cincinnati NorthComment on above: Performed By: #### 43884831, 9349618, 4607419, 72900240, 7077865138, 27246565, 4711455752, 60355451#### [facility] (DEFAULT) [address] [place] [address] 80367LFU surface Ag IA on 68-81-8457Teltwizdf B Surface AntigenNegativeUC HealthHIV 1+2 Ab+HIV1 p24 Ag IA Qlon 09-26-2024 HIV 1&2 AB/AGNon-ReactiveUC HealthHgbA1c Standardon 09-26-2024.Hb 13.1Invalid Interpretation [facility] HospitalComment on above:Performed By: #### 81630888, 9535618, 6011010, 40433945, 1372730274, 35039873, 6386413796, 92242255####[facility] (DEFAULT)[address] [place] [address] 14607 .Hgb A1c0.38 g/dLInvalid Interpretation [facility] HospitalComment on above: Performed By: #### 05164667, 6749884, 8537747, 40581715, 3943520484, 74640731, 2692430691, 74623478####[facility] (DEFAULT)[address] [place] [address] 50920Hhmvstc [Mass/Vol]91 mg/dLInvalid Interpretation [facility] HospitalComment on above:Performed By: #### 68222086, 1239125, 4636895, 49517764, 5949088187, 67208916, 2272460971, 73068728####[facility] (DEFAULT)[address] [place] [address] 03420QiC3m (Bld) [Mass fraction]4.8 % 4.0 - 6.0 %[facility] - Cincinnati NorthComment on above:Performed By: #### 95763678, 6163744, 7920397, 46779360, 6479896669, 47544017, 7289373479, 58031187 ####[facility] (DEFAULT)[address] [place], [place] [address]Fu Panel Informationon 82-32-7019YudIhbglm Helidyne SystemProvider Orderson 09-26-2024 Provider [id number]#1.00OTGTIFFBlanchard Valley Health System Blanchard Valley HospitalRubella IGG immune statuson 27-41-5803Xgupuov immune IgG2.78ProOhiohealth Arthur G.[facility]. [facility], Md, Cancer Center SystemT. pallidum IgG+IgM IA Ql (S)on 53-81-0138ViodfyknAkw-Reactive ProMMaple Grove Hospital SystemType and screenon 63-46-6612Nco/Rh(D)PositiveProCarraway Methodist Medical Center BrainientUltrasound - Officeon 64-29-5519KdfKhqqju Health SystemHCG ( test) Ql (U)on 42-04-4003Kzzzxiridctdyq and review of laboratory resultsAbnormalNOMS HealthcarePreg Test, UrPositiveNegativeNOMS HealthcareNOMS HealthcareUS OB TRANSVAGINALon 56-07-3942VT OB TRANSVAGINALEXAM: US OB TRANSVAGINAL HISTORY: Dating, [...] II, MD, PHD at 21-Sep-2024 08:26:46 AM [facility]igerian TeleradiologyNormalNot AvailableComment on above:Order Comment: US OB TRANSVAGINAL No LMP recorded.Urinalysis macro (dipstick) panel (U)on 81-05-4853Zhuyttwlv, UA NegativeNegative - 4(70) +++ mg/dLNOMS HealthcareBlood, [...] HealthcareUrobilinogen, UA0.20.2 - 12 mg/dLNOMS HealthcareNOMS HealthcareCNNURSEon 80-97-4679TTVUUHK Nurse Visit (SHERLEYIAV) JAZ SANDERS ([id number]) 1995 F Date Time Provider Department 09/03/24 10:[address] REJ TORREYV During your visit today, we recorded the following information about you: Manisha Weaver APRN.HIGH DENSITY PRESS LABORER 09/03/2024 5:42 PM Signed Jaz Sanders here [...] 2024 5:39 PM Referring Provider: MELODIE HERNANDEZ [[id number]] Allergies As of Date: 09/03/2024 (Not on File) Date Reviewed: 08/20/2024 Reviewed by: Melodie Hernandez APRN.CNP - Fully Assessed Visit Diagnosis:Early stage of (HCC) [Z34.90] [facility] [[id number]] Order #: [id number]. #:[id number]: 1 Prescriptions as of 09/03/2024 - buPROPion [...] (None) Encounter Status:Closed by BRADFORD DOSS on 09/03/24NoCleveland Clinic South Pointe Hospitalamination level ultrasoundon 09-03-2024 Indication Viability, Repeat Impression - Single, live, intrauterine . - An intrauterine gestational sac with a yolk sac and pole is present. - [place] rump length measurement is consistent with the [...] Lt ovary: Visualized Performed By: Nina Farnsworth; [facility] Read By: Bradford Doss M.D.MATERNAL MEDICINEMemorial Health System Selby General HospitalRadiology Study observation (narrative)[facility] HospitalCNNURSEon 70-04-5448OPXBBYAIwncs Visit (REIBD) JAZ SANDERS ([id number]) 1995 F Date Time Provider Department 08/28/24 11:10 AM US TECH 2 [facility] BEAC REIBD During your visit today, we recorded the following information about you: Melodie Hernandez, FIBERGLASS TECHNICIAN.HIGH DENSITY PRESS LABORER 08/30/2024 4:36 PM Signed Jaz Sanders is [...] scan next week as scheduled Melodie Hernandez APRN.HIGH DENSITY PRESS LABORER Mikey Torres MD 08/30/2024 4:36 PM Signed Viable ratliff IUP Size equal Date. Plan: patient to follow up with her ob for care. Stacy Banuelos MD Referring Provider: MELODIE HERNANDEZ [[id number]] Allergies As of Date: 08/28/2024 (Not on File) Date Reviewed: 08/20/2024 Reviewed by: Melodie Hernandez APRN.HIGH DENSITY PRESS LABORER - Fully Assessed Visit Diagnosis: resulting from assisted reproductive technology in first trimester ([facility]) [O09.811] [facility] [[id number]] Order #: [id number]. #:[id number]: 1 Prescriptions as of 08/30/2024 - buPROPion [...] (None) Encounter Status:Closed by MIKEY HENLEY on 08/30/24[facility] Hospitalamination level ultrasoundon 08-28-2024 Indication Viability Impression - Single, live, intrauterine . - An intrauterine gestational sac with a yolk sac and embryo is present. - [place] rump length measurement is consistent with the [...] Chavez RDMS Read By: Mikey Torres M.D.MATERNAL MEDICINEMemorial Health System [facility] Radiology Study observation (narrative)[facility] General HospitalCNPNon 30-12-5588WKHB Telephone (REIBD) JAZ SANDERS ([id number]) 1995 F Date Time Provider Department 08/24/24 [...] Date Reviewed: 08/20/2024 Reviewed by: Melodie Hernandez, MELY.HIGH DENSITY PRESS LABORER - Fully Assessed Reason for Visit: Patient [...] (None) Encounter Status:Closed by ARMINDA WARD on 08/24/24[facility] Limamanisha 87-60-6180OGWAMcxfwwgfx (REIBD) JAZ SANDERS ([id number]) 1995 F Date Time Provider Department 08/23/24 MELODIE HERNANDEZ During your visit today, we recorded the following information about you: Angella Mccarthy 08/23/2024 10:39 AM Signed Name: Jaz Sanders called today. : 1995 (home) [phone] (cell) Reason for call: pt called today informing the nurse she has been experiencing pain of level 4 from 1-10. Pt has been experiencing pain for 2 day. 5 weeks today. The patients preferred pharmacy has been captured for this encounter? Angella Morillo Surgical Nurse Practitioner David, Melodie Keene APRN.CNP 08/24/2024 5:58 PM [...] slot. Call to patient needed: no Morillo Surgical Nurse Practitioner, Lana 08/25/2024 8:37 AM Signed Pt is scheduled on 09/03/2024. Melodie Hernandez APRN.CNP 08/27/2024 11:51 AM Signed Addended by: MELODIE HERNANDEZ on: 08/27/2024 11:51 AM Modules accepted: Orders Allergies As of Date: 08/23/2024 (Not on File) Date Reviewed: 08/20/2024 Reviewed by: Melodie Hernandez APRN.CNP - Fully Assessed Reason for Visit: Pain [78] Primary Visit Diagnosis:Early stage of (HCC) [Z34.90] [facility](s):[facility] [[id number]] Order #: [id number]: 1 FUTURE Prescriptions as of 08/27/2024 - [...] (None) Encounter Status:Closed by MELODIE HERNANDEZ on 08/24/24[facility] Summaryon 99-80-0796Maedyo SummaryMLBase 64 OowfxhejVOg0kGt+PGhlYWQ+RW5MLKTzQ75ikSCtlR0tD7YQCKpSCrosLKAHTBzOYkDwlsWqVF5bxRCd ZXJu [file] b2x (more content not included)...[facility] HospitalCoding Summaryon 23-20-3472Dxbtmp SummaryHTMLBase 64 JqnsehttCDt5vJb+PGhlYWQ+VD6ERHQeJ33wyJGjlA1nG4DYMApUYtylZCOKZRoBLbMbpxIbCC8wdJEq ZXJu [file] b2x (more content not included)...NormalSelect Medical Specialty Hospital - [facility] HospitalCoding SummaryMLBase 64 KkjjjwwtRCs4tOq+PGhlYWQ+WW5TAIAeX25ioVLhxU6dP9EPVRnMCnsxPPKFYCzUFmDmynFhOE4qoAHs ZXJu [file] b2x (more content not included)...[facility] HospitalProvider Orderson 65-99-5517Gxdrmhpz [id number]#1.00OTGTIFF [facility] Bl[facility] Valley HospitalhCG Quantitativeon 27-41-5808iXW Qxhyatxeskpb823.7 mIU/mL High0.0-0.6MCleveland Clinic Union HospitalComment on above:Result Comment: Post-Menopausal Reference Range is: 0.1-11.6 mIU/mLPerformed By: #### [id number] #### [facility] (DEFAULT) [address] [place] [address] [id number] 39-46-0823TNRIPyjplwiwo (REIBD) JAZ SANDERS ([id number]) 1995 F Date Time Provider Department 08/16/24 MELODIE HERNANDEZ During your visit today, we recorded the following information about you: Angella Mccarthy 08/16/2024 12:31 PM Signed Name: Jaz Lynda called today. : 1995 (home) [phone] (cell) Reason for call: pt called that she got positive test, she has been having having cramping since last night , it happens every hours for couple minutes. The patients preferred pharmacy has been captured for this encounter? yes Angella Morillo Surgical Nurse Practitioner Daniel Hanna APRN.CNP 08/16/2024 5:28 PM Signed Called patient back to phone number listed in [facility]-no answer. Lm for patient to look out for [employer] message. Daniel Hanna APRN.JARROD August 16, 2024 [...] Status:Closed by DANIEL HANNA on 08/16/24[facility] HamiltonS[facility]ra 97-11-9760UNXFUcfxfpsik (REIBD) JAZ SANDERS ([id number]) 1995 F Date Time Provider Department 08/15/24 [...] Date Reviewed: 05/09/2024 Reviewed by: Melodie Hernandez, FIBERGLASS TECHNICIAN.HIGH DENSITY PRESS LABORER - Fully Assessed Reason for Visit: Patient [...] (None) Encounter Status:Closed by MELODIE HERNANDEZ on 08/15/24[facility] - ColumbusProvider Orderson 20-35-8159Zdzdrzgc Orders [id number]#1.00OTGTSheltering Arms HospitalhCG Quantitativeon 54-93-5547vSC Xzhclzkupxga156.6 mIU/mLHigh0.0-0.6MCleveland Clinic Union HospitalComment on above:Result Comment: Post-Menopausal Reference Range is: 0.1-11.6 mIU/mLPerformed By: #### [id number] #### [facility] (DEFAULT) [address] [place] [address] 27252VNTSag 32-47-6950UUPZObgyqifgt (REIBD) JAZ SANDERS ([id number]) 1995 F Date Time Provider Department 08/13/24 MELODIE HERNANDEZ During your visit today, we recorded the following information about you: Arminda Ward RN 08/13/2024 11:19 AM Signed Letters sent. sent to patient Arminda Ward RN August 13, 2024 11:19 AM Allergies As of Date: 08/13/2024 (Not on File) Date Reviewed: 05/09/2024 Reviewed by: Melodie Hernandez, FIBERGLASS TECHNICIAN.HIGH DENSITY PRESS LABORER - Fully Assessed Reason for Visit: Wants hcg levels sent to [facility] / lives far away [Other] Prescriptions [...] WARD on 08/13/24[facility] ColumbusProvider Ord[place] 75-02-7746Ipuexltp Orders [id number]#1.00OTThe MetroHealth SystemhCG Quantitativeon 53-84-5933aIQ Vyucwfzvobko42.6 mIU/mLMinnie Hamilton Health Center0.0-0.6[facility] Comment on above:Result Comment: Post-Menopausal Reference Range is: 0.1-11.6 mIU/mLPerformed By: #### [id number] #### [facility] (DEFAULT) [address] [place] [address] [id number] 61-07-7032NPWDImwkvk Visit (REIBD) JAZ SANDERS ([id number]) 1995 F Date Time Provider Department 07/31/24 3:00 PM MELODIE HERNANDEZ REARLET During your visit today, we recorded the following information about you: Last Period 07/19/24 Mustapha Tello MA 07/31/2024 3:12 PM Addendum Patient verified by full name and date of . Jaz Sanders is here today for an IUI. LMP: 07/19/2024 Natural cycle IUI Timed With: Ovulation Predictor Kit , Date: 07/30/2024 Management Internship offered: Patient declines Mustapha Tello MA July 31, 2024 3:12 PM Dominguez Barry 09/05/2024 10:45 PM Signed IUI specimen released to provider Dominguez Barry July 31, 2024 3:24 PM Dominguez Barry 09/05/2024 10:45 PM Signed IUI Cryobio Donor # [id number] Pre: frozen washed specimen Post: 82 M/ml, [...] 3. Cycle Day: Last menstrual period: 07/19/2024 [place] Protocol: UNIVERSAL PROTOCOL / SAFETY CHECKLIST Procedure [...] (None) Encounter Status:Closed by MELODIE HERNANDEZ on 09/05/24[facility] HamiltonOVOffice Visit (ANDRBE) JAZ SANDERS ([id number]) 1995 F Date Time Provider Department 07/31/24 2:30 PM ANDROLOGY TUBE ROOM SUPERVISOR [facility] During your visit today, we recorded the following information about you: Dominguez Barry 07/31/2024 3:26 PM Signed Thaw for IUI. Dominguez Barry Referring Provider: SELF [[id number]] Allergies As of Date: 07/31/2024 (Not on File) Date Reviewed: 05/09/2024 Reviewed by: Melodie Hernandez, FIBERGLASS TECHNICIAN.HIGH DENSITY PRESS LABORER - Fully Assessed Primary Visit Diagnosis:Procreative management [...] BARRY on 07/31/24[facility] - ColumbusCNPNon 90-83-6794WJBKFspeigtkh (REIBD) JAZ SANDERS ([id number]) 1995 F Date Time Provider Department 07/30/24 MELODIE HERNANDEZ During your visit today, we recorded the following information about you: Sathyamanisha Manisha 07/30/2024 3:16 PM Signed N- ivf Pt has questions regarding IUI Melodie Hernandez APRN.CNP 07/30/2024 6:00 PM Signed patient's OPK today was dark but not positive Plan: test again tomorrow. 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, schedule IUI the same day Melodie Hernandez APRN.CNP July 30, 2024 6:00 PM Allergies As of Date: 07/30/2024 (Not on File) Date Reviewed: 05/09/2024 Reviewed by: Melodie Hernandez APRN.CNP - Fully Assessed Reason for Visit: Patient Question [4967] Prescriptions as of 07/30/2024 - naltrexone 50 [...] (None) Encounter Status:Closed by MELODIE HERNANDEZ on 07/30/24[facility] Hospitalmanisha 78-00-0141TSNRFvdxif Visit (REIBD) JAZ SANDERS ([id number]) 1995 F Date Time Provider Department 07/07/24 [...] Cycle Day: 14 Last menstrual period: 06/24/2024 [place] Protocol: UNIVERSAL PROTOCOL / SAFETY CHECKLIST Procedure [...] Gonzalez 07/19/2024 7:50 AM Signed IUI Cryobio #[id number] Washed frozen specimen Post: 31 m/ml, 77% Insem#: 10.8 million Referring Provider: DANIEL HANNA [[id number]] Allergies As of Date: 07/07/2024 (Not on File) Date Reviewed: 05/09/2024 Reviewed by: Melodie Hernandez APRN.HIGH DENSITY PRESS LABORER - Fully Assessed Primary Visit Diagnosis:Encounter for [...] (None) Encounter Status:Closed by MIKEY HENLEY on 07/19/24[facility] Campusice [facility] (ANDRBE) JAZ SANDERS ([id number]) 1995 F Date Time Provider Department 07/07/24 9:30 AM ANDROLOGY TUBE ROOM [facility] During your visit today, we recorded the following information about you: Nichelle Gonzalez 07/07/2024 9:41 AM Signed Thaw for IUI Nichelle Gonzalez Referring Provider: DANIEL HANNA [[id number]] Allergies As of Date: 07/07/2024 (Not on File) Date Reviewed: 05/09/2024 Reviewed by: Melodie Hernandez APRN.HIGH DENSITY PRESS LABORER - Fully Assessed Primary Visit Diagnosis:Procreative management [...] (None) Encounter Status:Closed by NICHELLE GONZALEZ on 07/07/24[facility] HamiltonSabra 20-68-1013DPNMMrwtajfry (REIBD) JAZ SANDERS ([id number]) 1995 F Date Time Provider Department 07/06/24 [...] Date Reviewed: 05/09/2024 Reviewed by: Melodie Hernandez APRN.HIGH DENSITY PRESS LABORER - Fully Assessed Reason for Visit: Patient [...] ISAACS on 07/06/24[facility] - ColumbusXavier 50-70-6250MSAKRccgdcooo (REIBD) JAZ SANDERS ([id number]) 1995 F Date Time Provider Department 07/05/24 [...] Date Reviewed: 05/09/2024 Reviewed by: Melodie Hernandez APRN.HIGH DENSITY PRESS LABORER - Fully Assessed Reason for Visit: re [...] (None) Encounter Status:Closed by ARMINDA WARD on 07/06/24[facility] 56-63-8238AQQEBivrzngqa (REIBD) JAZ SANDERS ([id number]) 1995 F Date Time Provider Department 07/04/24 [...] Signed Ignacio Guy MD to Jamel Skylar [place] 07/05/24 9:05 AM Cervicalpolyp does not need [...] (None) Encounter Status:Closed by MELODIE HERNANDEZ on 07/04/24[facility] 07-04-2024 Indication infertility testing Impression [...] Aceves RDMS Read By: Ignacio Guy M.D.MATERNAL MEDICINEMemorial Health System Selby General HospitalRadiology Study observation (narrative)[facility] HospitalCNPNon 32-88-3644IZKSMpazucefj (REIBD) JAZ SANDERS ([id number]) 1995 F Date Time Provider Department 06/29/24 MELODIE HERNANDEZ During your visit today, we recorded the following information about you: Lupillo Meyerra 06/29/2024 8:53 AM Signed Pt had iui 06/09, pt isnt . Please follow up Cd1 06/23 . Pt had hematoma after iui Patriica Snow 07/02/2024 9:18 AM Signed Pt wants to know if she has to have us before iui this weekend Melodie Hernandez APRN.HIGH DENSITY PRESS LABORER 07/03/2024 12:34 PM Signed unable to reach, left message to return my call Melodie Hernandez APRN.HIGH DENSITY PRESS LABORER July 03, 2024 12:33 PM Patricia Snow 08/13/2024 8:52 AM Signed Pos preg test Arminda Ward RN 08/13/2024 9:17 AM Signed See TE encounter dated 08/13 Arminda Ward RN August 13, 2024 9:16 AM Allergies As of Date: 06/29/2024 (Not on File) Date Reviewed: 05/09/2024 Reviewed by: Melodie Hernandez APRN.HIGH DENSITY PRESS LABORER - Fully Assessed Reason for Visit: 06/09 [...] (None) Encounter Status:Closed by ARMINDA WARD on 08/13/24[facility] 39-14-5548HGQIGxufre Visit (REIBD) JAZ SANDERS ([id number]) 1995 F Date Time Provider Department 06/09/24 11:00 AM IGNACIO GUY During your visit today, we recorded the following information about you: Nichelle Gonzalez 06/09/2024 12:30 PM Signed IUI specimen released to provider Nichelle Gonzalez June 09, 2024 11:24 AM Nichelle Gonzalez 06/09/2024 12:30 PM Signed IUI Cryobio #: [id number] Washed frozen sample Post: 42 m/ml, 74% [...] Cycle Day: 13 Last menstrual period: 05/28/2024 [place] Protocol: UNIVERSAL PROTOCOL / SAFETY CHECKLIST Procedure [...] was discussed with the patient or authorized branch customer service representative. The patient or authorized branch customer service representative has agreed to proceed with the sensitive examination. (Sensitive examination includes inspection and/or palpation of the breasts, pelvis, prostate and anorectal regions) Patient declined videotape recording engineer. Vidhi Sheldon MD IUI IUI Date: 06/09/24 [...] stopped. Will get pelivc scan here at [facility] if not with this IUI prior pt proceeding with another attmept at IUI. Ignacio Guy MD June 09, 2024 12:30 PM SIGNATURE: Vidhi Sheldon MD PATIENT NAME: Jaz Sanders DATE: June 09, 2024 TIME: 12:01 PM Referring Provider: DANIEL HANNA [[id number]] Allergies As of Date: 06/09/2024 (Not on File) Date Reviewed: 05/09/2024 Reviewed by: Melodie Hernandez APRN.HIGH DENSITY PRESS LABORER - Fully Assessed Primary Visit Diagnosis:Female infertility [...] (None) Encounter Status:Closed by IGNACIO GUY on 06/09/24[facility] Visit (ANDRBE) JAZ SANDERS ([id number]) 1995 F Date Time Provider Department 06/09/24 10:30 AM ANDROLOGY TUBE ROOM SUPERVISOR [facility] During your visit today, we recorded the following information about you: Nichelle Gonzalez 06/09/2024 11:48 AM Signed Thaw for IUI Nichelle Gonzalez Referring Provider: DANIEL HANNA [[id number]] Allergies As of Date: 06/09/2024 (Not on File) Date Reviewed: 05/09/2024 Reviewed by: Melodie Hernandez APRN.HIGH DENSITY PRESS LABORER - Fully Assessed Primary Visit Diagnosis:Procreative management [...] (None) Encounter Status:Closed by NICHELLE GONZALEZ on 06/09/24[facility] Summaryon 92-66-7579Fhhnmm SummaryAMERICAN FORK HOSPITALBase 64 OwivkywbQYf5pVa+PGhlYWQ+QT3POTKfG12xcALqyS1qR8SKCRdTZeeyACBLDRrFVtRrthNoJU8frJEa ZXJu [file] b2x (more content not included)...[facility] HospitalProgesterone LCon 20-73-7816Mnjufmqazsrg LC7.6 ng/mLInvalid Interpretation [facility] Comment on above:Result Comment: Follicular phase 0.1 - 0.9 Luteal phase 1.8 - 23.9 Ovulation phase 0.1 - 12.0 First trimester 11.0 - 44.3 Second trimester 25.4 - 83.3 Third trimester 58.7 - 214.0 Postmenopausal 0.0 - 0.1 Performed At: [facility] [address] [place], [place] [id number] J Luis Gray PhD Ph:[phone] By: #### [id number] ####[facility] (DEFAULT)[address] [place] [id number] Orderson 93-07-4726Jhwprkmj [id number]#1.00OTMadison HealthPhysical Therapy Noteon 92-24-5391Atpyhwnn Therapy Note [id number]#1.00OTThe [facility] 25([place])D3 Banneron 250373-cpdieaicjtlvyf D3 [Mass/Vol]28.8 ng/mLLow 31.0-80.0Av HospitalComment on above:Order Comment: Specimen Type: BLOOD SPECIMEN Ordering Facility: [facility] Address: [address] [place], [place] [address]Result Comment: Classification of 25 [place] Vitamin D status: Deficiency/Insufficiency: < or = 30 ng/ml. Sufficiency/Optimal Levels: 31-80 ng/mL Toxicity: > 100 ng/mL. Test performed by chemiluminescent immunoassay.Performed By: #### 58067-0 #### [facility] CLIA [id number] [address] [place] [address] [place] MEDINA HOSPITALC. trachomatis+N. gonorrhoeae DNA AC+probe Ql (Unsp spec)on 04-02-2024. trachomatis rRNA AC+probe Ql (Unsp spec)Not detectedNormalNot detectedAv HospitalComment on above:Order Comment: Specimen Type: BLOOD SPECIMEN Ordering Facility: [facility] Address: [address] [place], [place] [address]Performed By: #### 56333-4 #### [facility] CLIA [id number] [address] [place] [address] [place]. gonorrhoeae rRNA AC+probe Ql (Unsp spec)Not detectedNormalNot detectedAv HospitalComment on above:Order Comment: Specimen Type: BLOOD SPECIMEN Ordering Facility: [facility] Address: [address] [place], [place] [address]Performed By: #### 89495-6 #### [facility] CLIA [id number] [address] [place] [address] [place] AMERICACARRIER SCREEN, EXPANDEDon 48-17-3812WPYIFNQ SCREEN RESULTSView results in Scanned Documents link when available.NormalAv HospitalComment on above:Order Comment: Specimen Type: BLOOD SPECIMEN Ordering Facility: [facility] Address: [address] [place], [place] [address]Performed By: #### 72163-8 #### [facility] CLIA [id number] [address] [place] [address] [place] AMERICACMV IgG Qnon 83-09-1230GHV IGG QUALNegativeNormalNegativeAv HospitalComment on above:Order Comment: Specimen Type: BLOOD SPECIMEN Ordering Facility: [facility] Address: [address] [place], [place] [address]Result Comment: No serological evidence of past exposure to Cytomegalovirus. Cannot exclude recent infection if the specimen collected within 4-6 weeks after infection.Performed By: #### 1989-3RIO, 7852-7, 7853-5, VZVG2 #### [facility] CLIA [id number] [address] [place] [address] [place] AMERICACMV IgG SerPl-aCncon 73-66-3854ENM IgG Qn<0.20NormalAvon HospitalComment on above:Order Comment: Specimen Type: BLOOD SPECIMEN Ordering Facility: [facility] Address: [address] [place], [place] [address]Result Comment: The magnitude of the measured result is not indicative of the amount of antibody present. U/mL values are interpreted as follows: Negative <0.6 Equivocal 0.6 to <0.70 Positive >=0.70Performed By: #### 1989-3RIO, 7852-7, 7853-5, VZVG2 #### [facility] CLIA [id number] [address] [place] [address] [place] AMERICACMV IgM Qnon 74-78-5939FCJ IGM, QUALNegativeNormalNegativeAvon HospitalComment on above:Order Comment: Specimen Type: BLOOD SPECIMEN Ordering Facility: [facility] Address: [address] [place], [place] [address]Result Comment: No serological evidence of recent exposure to Cytomegalovirus.Performed By: #### 1989-3, RUBIGG, 7852-7, 7853-5, VZVG2 #### [facility] CLIA [id number] [address] [place] [address] [place] AMERICAHBV core Ab Ser Qlon 07-54-8916EFW core Ab Ql (S)NegativeNormalNegativeAvon HospitalComment on above: Order Comment: Specimen Type: BLOOD SPECIMEN Ordering Facility: [facility] Address: [address] [place], [place] [address]Result Comment: No evidence of current or past infection with Hepatitis B virus. Should recent infection be suspected, repeat testing may be considered 3-4 weeks after this draw.Performed By: #### 55339-2, 5195-3, 42006-3, 30784-3 #### [facility] CLIA [id number] [address] [place] [address] [place] AMERICAHBV surface Ag Ser Qlon 89-89-5991LAZ surface Ag Ql (S)NegativeNormalNegativeAvon HospitalComment on above:Order Comment: Specimen Type: BLOOD SPECIMEN Ordering Facility: [facility] Address: [address] [place], [place] [address]Performed By: #### 15175-1, 5195-3, 73653-3, 94873-5 #### [facility] CLIA [id number] [address] [place] [address] [place] AMERICAHCV Ab Ser Qlon 04-02-2024 HCV Ab Ql (S)NegativeNormalNegativeAvon HospitalComment on above:Order Comment: Specimen Type: BLOOD SPECIMEN Ordering Facility: [facility] Address: [address] [place], [place] [id number] Comment: The result suggests no evidence of active infection with Hepatitis C virus. Should recent infection be suspected, repeat testing may be considered 4-6 weeks after this draw. Performed By: #### 15687-4 #### [facility] CLIA [id number] [address] [place] [address] [place] AMERICAHIV 1+2 Ab IA Qlon 21-71-5992VNT 1 and 2 Ab IA.rapid Nom (S/P/Bld)NormalSevier Valley HospitalComment on above:Order Comment: Specimen Type: BLOOD SPECIMEN Ordering Facility: [facility] Address: [address] [place], [place] [address]Result Comment: Test not indicated. Performed By: #### 31032-9, 5195-3, 98713-0, 16245-2 #### [facility] CLIA [id number] [address] [place] [address] STATES OF AMERICAHIV 1+2 Ab+HIV1 p24 Ag IA Ql Non-ReactiveNormalNonreactiveSevier Valley HospitalComment on above:Order Comment: Specimen Type: BLOOD SPECIMEN Ordering Facility: [facility] Address: [address] [place], [place] [address]Performed By: #### 88661-2, 5195-3, 37649-5, 60713-5 #### [facility] CLIA [id number] [address] [place] [address] STATES OF AMERICAHIV immunoassay testing algorithm interpretation (S/P/Bld) [Interp][facility] CenterComment on above: Order Comment: Specimen Type: BLOOD SPECIMEN Ordering Facility: [facility] Address: [address] [place], [place] [address]Result Comment: No evidence of HIV- 1 or HIV-2 infection. Should recent infection be suspected, repeat testing may be considered 2-3 weeks after this draw. [place] Rev. Code 3701.243(E): This information has been [...] HIV test results or diagnoses.Performed By: #### 48402-7, 5195-3, 46869-7, 42723-6 #### [facility] CLIA [id number] [address] [place] [address] [place] UZGDYWCGsW8b (Bld)on 04-02-2024 Average glucose Estimated from glycated hemoglobin (Bld) [Mass/Vol]85 mg/dL NormalAv HospitalComment on above:Order Comment: Specimen Type: BLOOD SPECIMEN Ordering Facility: [facility] Address: [address] [place], [place] [address]Result Comment: eAG: (Estimated average glucose) is a calculated value from HgbA1c and is branch customer service representative of the average blood glucose level in the last 2-3 month period.Performed By: #### 83723-2 #### [facility] CLIA [id number] [address] [place] [address] [place] NDFKMVTEjE1f (Bld) [Mass fraction] 4.6 %Normal4.3-5.6Avon HospitalComment on above:Order Comment: Specimen Type: BLOOD SPECIMEN Ordering Facility: [facility] Address: [address] [place], [place] [address]Result Comment: [place] [employer] guidelines indicate that patients with HgbA1c in the range 5.7-6.4% are at increased risk for development of diabetes, and intervention by lifestyle modification may be beneficial. HgbA1c greater or equal to 6.5% is considered diagnostic of diabetes.Performed By: #### 16812-0 #### [facility] CLIA [id number] [address] [place], [place] [address] [place] AMERICARUBELLA IGG ANTIBODYon 01-69-2798RNSFEVM IGG AB, QUALPositiveNormalPositiveAv HospitalComment on above:Order Comment: Specimen Type: BLOOD SPECIMEN Ordering Facility: [facility] Address: [address] [place], [place] [address]Result Comment: The result suggests recent or past exposure to Rubella virus or history of Rubella vaccination. Positive result may also be seen due to presence of passively-transferred antibodies. Please correlate with patient's history.Performed By: #### 1989-3, RUBIGG, 7852-7, 7853-5, VZVG2 #### [facility] CLIA [id number] [address] [place] [address] [place] AMERICAReagin and Treponema pallidum IgG and IgM [Interp]on 04-02-2024T. pallidum IgG+IgM IA Ql (S) Non-ReactiveNormalNonreactiveSevier Valley HospitalComment on above:Order Comment: Specimen Type: BLOOD SPECIMEN Ordering Facility: [facility] Address: [address] [place], [place] [address]Performed By: #### 85296-1, 5195-3, 17554-8, 87637-8 #### [facility] CLIA [id number] [address] [place] [address] [place] AMERICAReagin+T pallidum IgG+IgM SerPl-Impon 82-37-4205Ijdnte and Treponema pallidum IgG and IgM [Interp]Cannot exclude recent Treponemal infection if specimen collected within 7-10 days after appearance of suspect lesions or 2-3 weeks after an exposure. Clinical correlation is required.NormalSaint Amant HospitalComment on above:Order Comment: Specimen Type: BLOOD SPECIMEN Ordering Facility: [facility] Address: [address] [place], [place] [address]Performed By: #### 60559-7, 5195-3, 99361-2, 17888-5 #### [facility] CLIA [id number] [address] [place] [address] [place] OF AMERICATYPE + SCREEN PRENATALon 79-38-1952BIWRLtmsbzCnda HospitalComment on above:Order Comment: Specimen Type: BLOOD SPECIMEN Ordering Facility: [facility] Address: [address] [place], [place] [address]Performed By: #### TSPN #### [facility] [place] [id number] [address] [place] [address] [facility] CENTERRh Nom (Bld)[facility] Comment on above:Order Comment: Specimen Type: BLOOD SPECIMEN Ordering Facility: [facility] Address: [address] [place], [place] [address]Performed By: #### TSPN #### [facility] [place] [id number] [address] [place] [address] [facility] HOSPITALTYPE AND SCREEN SIHDVKFQMU81/19/2024 23:59[facility] Medical CenterComment on above:Order Comment: Specimen Type: BLOOD SPECIMEN Ordering Facility: [facility] Address: [address] [place], [place] [address]Performed By: #### TSPN #### [facility] [id number] [address] [place] [address] [facility] MEDICAL CENTERVARICELLA ZOSTER IGGon 04-02-2024 VARICELLA ZOSTER IGG, QUALPositiveNormalPositiveSaint Amant HospitalComment on above: Order Comment: Specimen Type: BLOOD SPECIMEN Order[facility] Facility: [facility] Address: [address] [place], [place] [address]Result Comment: The result suggests recent or past exposure to Varicella-Zoster virus or chickenpoxvaccination or zoster vaccination. Positive result may also be seen due to presence of passively-transferred antibodies. Please correlate with patient's history. Performed By: #### 33789-2 #### [facility] CLIA [id number] [address] [place] [address] STATES OF AMERICACoding Summaryon 03-20-2024 Coding SummaryMLBase 64 LbkomznwTUq2nCf+PGhlYWQ+EW3YRIXfJ89xpDFedT7cF6OPUIzHUuovQQVEOJcQIxFtnwClHQ8ttLPm ZXJu [file] JSc (more content not included)...[facility] HospitalProvider Orderson 40-21-0721Tetnxqrq [id number]#1.00OTGTIFF [facility].Auto Diff 1on 12-16-6476Bqdw Lyman %3 %Normal1-12Magrmetrohealth main campus medical center HospitalComment on above:Performed By: #### [id number], 2617299, 2490570 #### [facility] (DEFAULT) [address] [place] [address] 82014Aybp Abs#0.0 u10Exeevh1.0-0.2Mprovidence hospital HospitalComment on above:Performed By: #### [id number], 2983390, 6970477 #### [facility] (DEFAULT) [address] [place] [address] 05523Tskejsnxy/100 WBC (Bld)0.3 %Normal0.2-2.0[facility] Comment on above:Performed By: #### 24781777, 2779394, 1731284 #### [facility] (DEFAULT) [address] [place] [address] 44920Ybt Abs#0.0 x24Lexfrt4.0-0.4[facility] HospitalComment on above:Performed By: #### [id number], 8189499, 1165493 #### [facility] (DEFAULT) [address] [place] [address] 17786Hiaavbxjvuk/100 WBC (Bld)0.1 %Low0.9-4.0[facility] Comment on above:Performed By: #### 68289648, 2421769, 9980559 #### [facility] (DEFAULT) [address] [place] [address] 41486Yxjgo Abs#1.5 b29Zdjjsl9.3-2.9[facility] HospitalComment on above:Performed By: #### 37088164, 1138841, 4212664 #### [facility] (DEFAULT) [address] [place] [address] 18012Ilhflhypfey/100 WBC (Bld)16 %Iacelu63-57Pnowamvh Hospital Comment on above:Performed By: #### 53622614, 9511794, 6050101 #### [facility] (DEFAULT) [address] [place] [address] 47161Mtqo Abs#0.3 p05Ryniau0.0-0.8[facility] HospitalComment on above:Performed By: #### 38044185, 9408251, 8287882 #### [facility] (DEFAULT) [address] [place] [address] 15882Qquf Abs#7.8 t06Pdywyk5.5-9.2Mprovidence hospital HospitalComment on above:Performed By: #### 04299287, 7301175, 3460100 #### [facility] (DEFAULT) [address] [place] [address] 66948Lriofgzjomy/100 WBC (Bld)81 %Qhjnsv98-14Afyevowg Hospital Comment on above:Performed By: #### [id number], 4847314, 9781779 #### [facility] (DEFAULT) [address] [place] [address] 70365ZQD w/ Auto Diffon 27-72-9604Qbucuefacil distribution width (RBC) [Ratio]13.9 %Dedapa95.5-15.0[facility] NorthComment on above: Performed By: #### 00537460, 7873302, 6373743 #### [facility] (DEFAULT) [address] [place] [address] 57005Cdqnxrvghb (Bld) [Volume fraction]45.3 %High33.7-40.4 [facility] NorthComment on above:Performed By: #### 89866526, 4090573, 9676633 #### [facility] (DEFAULT) [address] [place] [address] 75051Gdenwlejvw (Bld) [Mass/Vol]15.5 g/yCUyuilf54.3-15.9 [facility] NorthComment on above:Performed By: #### 06488672, 8658037, 0507260 #### [facility] (DEFAULT) [address] [place] [address] 99170Doa Diff?AutoInvalid Interpretation CodeSelect Medical Specialty Hospital [facility] Comment on above:Performed By: #### [id number], 6640329, 7041979 #### [facility] (DEFAULT) [address] [place] [address] 14260BFN (RBC) [Entitic mass]29 nhEgrhuk98-20Rilwyzqj Hospital Comment on above:Performed By: #### 35981923, 4645570, 3149489 #### [facility] (DEFAULT) [address] [place] [address] 05226LCVJ (RBC) [Mass/Vol]34 g/sBTzxsck34-99Dwthxzbu Hospital Comment on above:Performed By: #### 42224242, 0949314, 5242670 #### [facility] (DEFAULT) [address] [place] [address] 43674PES (RBC) [Entitic vol]86 sVCvgbqn95-910Bkaymaas Hospital Comment on above:Performed By: #### 67912857, 6006370, 3340406 #### [facility] (DEFAULT) [address] [place] [address] 18636Rkofpldk729 z97Nlmxgf115-315Jqgmaxov HospitalComment on above:Performed By: #### 83491993, 2481991, 6562718 #### [facility] (DEFAULT) [address] [place] [address] 17826Dumjnpql mean volume (Bld) [Entitic vol]6.8 fLNormal 6.3-10.2Mprovidence hospital HospitalComment on above:Performed By: #### 36803787, 4703873, 5746255 #### [facility] (DEFAULT) [address] [place] [address] 95302WIL4.28 s38Lhcacu7.70-5.30[facility] HospitalComment on above:Performed By: #### 88658418, 8023700, 7729433 #### [facility] (DEFAULT) [address] [place] [address] 32680FNO9.6 u20Turmyp4.5-10.5[facility] HospitalComment on above: Performed By: #### 43714909, 8544819, 3178284 #### [facility] (DEFAULT) [address] [place] [address] 15111Dsfdxolvji 14-12-1605Pknhqpio [Mass/Vol]20.6 ng/mLNormal 12.0-150.0[facility] HospitalComment on above:Performed By: #### 45386806, 1171092, 6999109 #### [facility] ([facility] [address] [place] [address] 61674Rdyo Levelon 49-92-1204Mkrq [Mass/Vol]61.0 ug/dLNormal 28.0-170.0[facility] HospitalComment on above:Performed By: #### [id number] ####[facility] (DEFAULT)[address] [place] [address] [id number] ID: [id number] Author: IGNACIO GUY MD Service: ? Author [...] for three cycles. They will meet with RESPIRATORY CARE PROGRAM DIRECTOR to review the IUI checklist and sign consents. I spent a total of 45 minutes on the date of the service which included preparing to see the patient, sjxs-lv-cmyx patient care, completing clinical documentation, counseling and educating the patient/family/caregiver, and ordering medications, tests, or procedures. Ignacio Guy MDTriHealth [facility] 47-29-6848TFUAIbchli Visit (REIBD) JAZ SANDERS ([id number]) 1995 F Date Time Provider Department 02/28/24 [...] OB History Obstetric History No data available SDE HISTORY: Patient's last menstrual period was 02/18/2024. 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 They will meet with RESPIRATORY CARE PROGRAM DIRECTOR to review the IUI checklist and sign consents. I spent a total of 45 minutes on the date of the service which included preparing to see the patient, whpb-iu-gbnh patient care, com (more content not included)...NormalAultman HospitalP,APTIMA HPV,AGE GDLNon 02-28-[birth year]24 AGE GDLN ACOG TESTINGNote.NOMS HealthcareComment on above:TESTS RESULT FLAG UNITS REF RANGE LAB Clinician Provided Cytology Information Source.............Cervix;Endocervix No. of containers..01 ThinPrep Vial Age Algo ACOG Ezequiel... 01 FLAG LEGEND: L-Low Normal,H-High Normal,LL-Alert Low,HH-Alert High <-Panic Low,>-Panic High,A-Abnormal,AA-Critical Abnormal Performed at: 01 =G [facility] [place] [address] Dagmar Love MD, IGP, RFX APTIMA HPV ASCUNote.NOMS HealthcareComment on above:TESTS RESULT FLAG UNITS REF RANGE LAB DIAGNOSIS: 02 NEGATIVE FOR INTRAEPITHELIAL LESION OR MALIGNANCY. Specimen adequacy: 02 Satisfactory for evaluation. Endocervical and/or squamous metaplastic cells (endocervical component) are present. Performed by: 02 Edel Sewell, Supervisor [employer] ([facility]) . 02 Note: Note 02 The [...] High,A-Abnormal,AA-Critical Abnormal Performed at: 02 [facility] [address] [place] [address] Dagmar Love MD, Performed at: =G - [facility] [address], [place] [id number] Tug Master: Dagmar Love MD, Phone: [phone] Performed at: - [address] [id number] Tug Master: Dagmar Love MD, Phone: [phone] BRUSH-SPATULA CERVIX ENDOCERVIX [facility] Summaryon 47-83-1619Hgjjte SummaryMLBase 64 XxkajnlxCEn9wIx+PGhlYWQ+WO3BIARdA40wrKUspB3jI1JVSRbLEhbkBGONYXzDVzVlbgStRY7ihFOt ZXJu [file] [facility] (more content not included)...[facility] papilloma virus 16+18+31+33+35+39+45+51+52+56+58+59+66+68 DNA [Presence] in Addi 34-15-9206RFV 16+18+31+33+35+39+45+51+52+56+58+59+66+68 DNA Probe+sig amp Ql (Cvx)Human papilloma virus 16+18+31+33+35+39+45+51+52+56+58+59+66+68 DNA [Presence] in Cer. [facility] SouthComment on above:TESTS RESULT FLAG UNITS REF RANGE LAB DIAGNOSIS: 02 NEGATIVE FOR INTRAEPITHELIAL LESION OR MALIGNANCY.Specimen adequacy: 02 Satisfactory forevaluation. Endocervical and/or squamous metaplastic cells (endocervical component) are present.Performed by: 02 Edel Sewell, Supervisor [employer] ([facility]). 02Note: Note 02 The Pap smear [...] <-Panic Low,>- Panic High,A-Abnormal,AA-Critical Abnormal Performed at:[address] [address] Dagmar Love MD, Nloatxjlf at: = - [facility] [id number] Director: Dagmar Love MD, Phone: [phone] at: [facility] [address] [id number] Director: Dagmar Love MD, Phone: [phone] Panel Informationon 85-01-1350Adwrggucz Lab Test Patient AgeNotcolt.[facility] SouthComment on above:TESTS RESULT FLAG UNITS REF RANGE LAB Clinician Provided Cytology Information Source.............Cervix;Endocervix No. of containers..01 ThinPrep VialAge Olafo HUMAOG Ezequiel... FLAG LEGEND: L-Low Normal,H-High Normal,LL-Alert Low,HH-Alert High <-Panic Low,>-Panic High,A- Abnormal,AA-Critical Abnormal Performed a t:01 =G [address] [address] Dagmar Love MD, .Auto Diff 1on 55-09-8338Olhb Lyman %6 %Normal1-12 [facility] NorthComment on above:Performed By: #### [id number] #### [facility] (DEFAULT) [address] [place] [address] 71784Kvbq Abs#0.0 r38Vvkbbq2.0-0.2Magrmetrohealth main campus medical center HospitalComment on above:Performed By: #### [id number] #### [facility] (DEFAULT) [address] [place] [address] 54484Kprxybvbm/100 WBC (Bld)0.3 %Normal0.2-2.0[facility] Hospital Comment on above:Performed By: #### [id number] #### [facility] (DEFAULT) [address] [place] [address] 80107Ttw Abs#0.2 b42Yovcaf1.0-0.4[facility] HospitalComment on above:Performed By: #### [id number] #### [facility] (DEFAULT) [address] [place] [address] 90778Zhgzowtyxlw/100 WBC (Bld)3.4 %Normal0.9-4.0[facility] HospitalComment on above:Performed By: #### [id number] #### [facility] (DEFAULT) [address] [place] [address] 32939Jywdk Abs#2.4 v82Hgksng8.3-2.9[facility] HospitalComment on above:Performed By: #### [id number] #### [facility] (DEFAULT) [address] [place] [address] 51501Xdvhpvhusxw/100 WBC (Bld)34 %Izmusj92-55Pqnlvmvt Hospital Comment on above:Performed By: #### [id number] #### [facility] (DEFAULT) [address] [place] [address] 40092Okov Abs#0.4 h04Txzmma3.0-0.8[facility] HospitalComment on above:Performed By: #### [id number] #### [facility] (DEFAULT) [address] [place] [address] 64014Chcm Abs#4.0 h94Pfnulv1.5-9.2Mprovidence hospital HospitalComment on above:Performed By: #### [id number] #### [facility] (DEFAULT) [address] [place] [address] 78933Tvaodpspmmz/100 WBC (Bld)56 %Zufswe40-70Idmsyoeu Hospital Comment on above:Performed By: #### [id number] #### [facility] (DEFAULT) [address] [place] [address] 35839WRJ w/ Auto Diffon 23-33-3260Vmwhxbdfotj distribution width (RBC) [Ratio]14.0 %Xsyeca36.5-15.0[facility] HospitalComment on above: Performed By: #### [id number] #### [facility] (DEFAULT) [address] [place] [address] 61874Hxqptbjthg (Bld) [Volume fraction]41.7 %High33.7-40.4 [facility] HospitalComment on above:Performed By: #### [id number] #### [facility] (DEFAULT) [address] [place] [address] 58635Vfnjwhskgm (Bld) [Mass/Vol]14.1 g/wBIpwkog45.3-15.9 [facility] HospitalComment on above:Performed By: #### [id number] #### [facility] (DEFAULT) [address] [place] [address] 06514Aek Diff?AutoInvalid Interpretation CodeSelect [facility]ty [facility] Comment on above:Performed By: #### [id number] #### [facility] (DEFAULT) [address] [place] [address] 40257CYW (RBC) [Entitic mass]29 ogLkzetw54-18Idguxpmn Hospital Comment on above:Performed By: #### [id number] #### [facility] (DEFAULT) [address] [place] [address] 12668AKQW (RBC) [Mass/Vol]34 g/tJGknqgo40-06Yizkpjxp Hospital Comment on above:Performed By: #### [id number] #### [facility] (DEFAULT) [address] [place] [address] 34926AHB (RBC) [Entitic vol]86 bCEhcbgo04-235Sgqgenej Hospital Comment on above:Performed By: #### [id number] #### [facility] (DEFAULT) [address] [place] [address] 46717Eaoqrmdj523 u55Njbksu929-500Obkrvpiv HospitalComment on above:Performed By: #### [id number] #### [facility] (DEFAULT) [address] [place] [address] 08413Fceogsig mean volume (Bld) [Entitic vol]6.8 fLNormal 6.3-10.2Mprovidence hospital HospitalComment on above:Performed By: #### [id number] #### [facility] (DEFAULT) [address] [place] [address] 03674YBV6.84 t00Heopda7.70-5.30[facility] HospitalComment on above:Performed By: #### [id number] #### [facility] (DEFAULT) [address] [place] [address] 17615KSO1.1 c88Lpsimu6.5-10.5[facility] HospitalComment on above: Performed By: #### [id number] #### [facility] (DEFAULT) [address] [place] [address] 85575Ctfrfcyqat 23-84-9017Zdtdealz [Mass/Vol]15.8 ng/mLNormal 12.0-150.0[facility] HospitalComment on above:Performed By: #### 03507263, 4931835, 1426987 #### [facility] (DEFAULT) [address] [place] [address] 36746Batn Profileon 66-63-4701Asoe [Mass/Vol]72.0 ug/dLNormal 28.0-170.0[facility] HospitalComment on above:Performed By: #### [id number], 0029072, 3922954 #### [facility] (DEFAULT) [address] [place] [address] 25771Ygsk Sat19 %Ueu06-31Dewdfuak HospitalComment on above: Performed By: #### [id number], 7121236, 6275212 #### [facility] (DEFAULT) [address] [place] [address] 64967MENN601 mcg/yWPovgqn717-727Ghndnfew HospitalComment on above:Performed By: #### 98663887, 4465422, 6527176 #### [facility] (DEFAULT) [address] [place] [address] 80580Yesipuyemll [Mass/Vol]274.6 mg/cBJecwnj939.0-382.0[facility] HospitalComment on above:Performed By: #### 27929537, 7486452, 7860223 #### [facility] (DEFAULT) [address] [place] [address] 16300Qrcbfc Summaryon 97-45-3926Dcjmoa SummaryMLBase 64 ExqhbmqzMSy7eKg+PGhlYWQ+HT2OVPQiF64aaAJzaM2dT2UYDBpEZdssYGHINWoLSyBqpcJnEF2naHVu ZXJu [file] c (more content not included)...[facility] HospitalAmphetamine Screen Ql (U)Ordered By: Andry Lacy on 70-94-3556Rmmnqawvnfsn Ql (U)Amphetamines screenNegativeProtestant Deaconess Hospital CenterAmphetamines Ql (U)Negative NegativePremier Health Miami Valley Hospital SouthBarbiturates [Presence] in Urine by Screen methodOrdered By: Andry Lacy on 74-09-5060Vzskwzndydgz Screen Ql (U) NegativeNegativePremier Health Miami Valley Hospital SouthBarbiturates Screen Ql (U) Barbiturates [Presence] in Urine by Screen methodNegKettering Health Greene MemorialBenzodiazepines Screen Ql (U)Ordered By: Andry Lacy on 03-97-3006Mtvbllkwofgcosl Ql (U)PositiveHighNegKettering Health Greene MemorialBenzodiazepines Ql (U)Benzodiazepines [Presence] in Urine by Screen method HighNegKettering Health Greene MemorialBenzoylecgonine [Presence] in Urine by Screen methodOrdered By: Andry Lacy on 75-23-2740Etyehqsnyyayeri Screen Ql (U)NegativeNegKettering Health Greene MemorialBenzoylecgonine Screen Ql (U)Benzoylecgonine [Presence] in Urine by Screen methodNegKettering Health Greene MemorialCannabinoids [Presence] in Urine by Screen methodOrdered By: Andry Lacy on 01-91-0053Njyttdbhzsqy Screen Ql (U)PositiveHighFirelands Regional Medical Center South CampusComment on above:These are unconfirmed results and should not be used for legal purposes. Drug Cut-Off Concentration: AMPH 1000 ng/mL LUIS ANTONIO 200 ng/mL JOHN 200 ng/mL COCM 300 ng/mL OP 300 ng/mL PCP 25 ng/mL THC 20 ng/mLCannabinoids Screen Ql (U)Cannabinoids [Presence] in Urine by Screen methodHighNegKettering Health Greene MemorialComment on above:These are unconfirmed results and should not be used for legal purposes. Drug Cut-Off Concentration: AMPH 1000 ng/mL LUIS ANTONIO 200 ng/mL JOHN 200 ng/mL COCM 300 ng/mL OP 300 ng/mL PCP 25 ng/mL THC 20 ng/mLHCG ( test) IA.rapid Ql (U)Ordered By: Andry Lacy on [id number] ( test) Ql (U)NegativePremier Health [facility] Hospital SouthHCG ( test) Ql (U)Urine human chorionic gonadotropin (hCG) detection by immunoassayPremier Health [facility] South Opiates [Presence] in Urine by Screen methodOrdered By: Andry Lacy on [id number] Screen Ql (U)NegativeNegativePremier Health Miami [facility] Opiates Screen Ql (U)Opiates [Presence] in Urine by Screen methodNegative [facility] SouthPhencyclidine Screen Ql (U)Ordered By: Andry Lacy on 46-11-6961Sxfaoztvoaljr Ql (U)NegativeNegativePremier Health Miami Valley Hospital SouthPhencyclidine Ql (U)Phencyclidine [Presence] in Urine by Screen methodNegativePremier Health Miami [facility] Hospital SouthAlanine aminotransferase [Enzymatic activity/volume] in Serum or PlasmaOrdered By: Romeo Santana on 55-51-2357UFE [Catalytic activity/Vol]14 U/L7-52[facility] SouthAlbumin [Mass/volume] in Serum or Plasma by Bromocresol green (BCG) dye binding methoOrdered By: Romeo Santana on 12-84-3412Galqggs BCG dye [Mass/Vol]4.6 g/dL3.5-5.7FMercy Health Springfield Regional Medical CenterAlkaline phosphatase [Enzymatic activity/volume] in Serum or PlasmaOrdered By: Romeo Santana on 20-77-7129RMO [Catalytic activity/Vol]41 U/U97-222ZmslzrsrxPremier Health Miami Valley Hospital SouthAspartate aminotransferase [Enzymatic activity/volume] in Serum or PlasmaOrdered By: Romeo Santana on 90-70-4500RSF [Catalytic activity/Vol]13 U/S71-29KmxfgklecPremier Health Miami Valley Hospital SouthBasophils Auto (Bld) [#/Vol]Ordered By: Romeo Santana on 11-28-2023 Basophils (Bld) [#/Vol]0.0 10*3/uL0.0-0.2FMercy Health Springfield Regional Medical Center Basophils/100 WBC Auto (Bld)Ordered By: Romeo Santana on 53-58-3019Enpuqrmpq/100 WBC (Bld)0.3 %.[facility] SouthBilirubin.total [Mass/volume] in Serum or PlasmaOrdered By: Romeo Santana on 77-86-4405Wxyuirszg [Mass/Vol]0.5 mg/dL0.3-1.0[facility] SouthCalcium [Mass/volume] in Serum or PlasmaOrdered By: Romeo Santana on 16-05-3968Oxjosva [Mass/Vol]9.4 mg/dL8.6-10.3 [facility] SouthCarbon dioxide, total [Moles/volume] in Serum or PlasmaOrdered By: Romeo Santana on 62-26-5772UN0 [Moles/Vol]27.8 mmol/L 21.0-31.0[facility] SouthChloride [Moles/volume] in Serum or PlasmaOrdered By: Romeo Santana on 44-60-1755Sstymacg [Moles/Vol]106 mmol/L98-107 [facility] SouthCreatinine [Mass/volume] in Serum or Plasma Ordered By: Romeo Santana on 90-72-2154Hcyehgvyvw [Mass/Vol]0.62 mg/dL0.60-1.20 [facility] SouthEosinophils Auto (Bld) [#/Vol]Ordered By: Romeo Santana on 93-56-3393Qasjmcniyji (Bld) [#/Vol]0.2 10*3/uL0.0-0.45[facility] SouthEosinophils/100 WBC Auto (Bld)Ordered By: Romeo Santana on 60-64-3857Msxzccmvvye/100 WBC (Bld)3.5 %.[facility] Erythrocyte distribution width Auto (RBC) [Ratio]Ordered By: Romeo Santana on 22-89-2726Yrvfaibiggf distribution width (RBC) [Ratio]14.0 %11.9-15.3FMercy Health Springfield Regional Medical CenterGlobulin Calc (S) [Mass/Vol]Ordered By: Romeo Santana on 02-21-9524Vuroqbvv (S) [Mass/Vol]2.0 g/dLPremier Health Miami Valley Hospital South Glucose [Mass/volume] in Serum or PlasmaOrdered By: Romeo Santana on 11-28-2023 Glucose [Mass/Vol]76 mg/bO22-239OhcddphjgPremier Health Miami Valley Hospital SouthHematocrit Auto (Bld) [Volume fraction]Ordered By: Romeo Santana on 89-23-2104Grlofzbhsl (Bld) [Volume fraction]40.1 %34.0-46.4FMercy Health Springfield Regional Medical CenterHemoglobin [Mass/volume] in BloodOrdered By: Romeo Santana on 27-75-3965Gotheodpuq (Bld) [Mass/Vol]13.6 g/dL11.8-15.4FMercy Health Springfield Regional Medical CenterLeukocytes [#/volume] corrected for nucleated erythrocytes in Blood by Automated coun Ordered By: Romeo Santana on 02-62-9550EQI corrected for nucl RBC Auto (Bld) [#/Vol]6.4 10*3/uL3.8-11.6FMercy Health Springfield Regional Medical CenterLymphocytes Auto (Bld) [#/Vol]Ordered By: Romeo Santana on 90-59-9640Aizerxvzpww (Bld) [#/Vol]2.4 10*3/uL1.00-4.8[facility] SouthLymphocytes/100 WBC Auto (Bld) Ordered By: Romeo Santana on 16-96-3151Wtdokmmuxzc/100 WBC (Bld)38.3 %.[facility] SouthMCH Auto (RBC) [Entitic mass]Ordered By: Romeo Santana on 94-11-4680JIZ (RBC) [Entitic mass]29.3 pg24.7-34.3FMercy Health Springfield Regional Medical CenterMCHC Auto (RBC) [Mass/Vol]Ordered By: Romeo Santana on 46-02-5945GISV (RBC) [Mass/Vol]33.8 g/dL32.0-35.0[facility] SouthMCV Auto (RBC) [Entitic vol]Ordered By: Romeo Santana on 61-36-2818ZBW (RBC) [Entitic vol]86.7 xE30-974MbriqmekdPremier Health Miami Valley Hospital SouthMonocytes Auto (Bld) [#/Vol]Ordered By: Romeo Santana on 91-40-7356Ncdatgyne (Bld) [#/Vol]0.4 10*3/uL0.0-0.8[facility] SouthMonocytes/100 WBC Auto (Bld)Ordered By: Romeo Santana on 88-13-0771Hvwzcwtpc/100 WBC (Bld)5.8 %.[facility] Neutrophils Auto (Bld) [#/Vol]Ordered By: Romeo Santana on 65-76-6272Hagdpmddyrb (Bld) [#/Vol]3.3 10*3/uL1.8-7.7FMercy Health Springfield Regional Medical CenterNeutrophils/100 WBC Auto (Bld)Ordered By: Romeo Santana on 90-71-7266Xnvmqselwjv/100 WBC (Bld) 52.1 %.[facility] SouthNo Panel InformationOrdered By: Romeo Santana on 18-74-7296Kmngqropk GFR (CKD-EPI)> 60.0 mL/MinPremier Health Miami Valley Hospital SouthPharmacy Creatinine Clearance (ChemN/AFMercy Health Springfield Regional Medical CenterNucleated erythrocytes [Presence] in Blood by Automated countOrdered By: Romeo Santana on 93-99-5645Dzctowshq RBC Auto Ql (Bld)0.0 /100{WBC}0-0.5FMercy Health Springfield Regional Medical CenterPlatelet mean volume Auto (Bld) [Entitic vol]Ordered By: Romeo Santana on 57-58-5752Hycehjpd mean volume (Bld) [Entitic vol]6.8 fL6.3-10.7 [facility] SouthPlatelets Auto (Bld) [#/Vol]Ordered By: Romeo Santana on 63-80-7991Nwfrqcuox (Bld) [#/Vol]159 10*3/gQ546-114MbnaxttktPremier Health Miami Valley Hospital SouthPotassium [Moles/volume] in Serum or PlasmaOrdered By: Romeo Santana on 27-18-9287Ettadzufj [Moles/Vol]4.2 mmol/L3.5-5.1FMercy Health Springfield Regional Medical CenterProtein [Mass/volume] in Serum or PlasmaOrdered By: Romeo Santana on 58-32-1640Vykxozk [Mass/Vol]6.6 g/dL6.4-8.9[facility] RBC Auto (Bld) [#/Vol]Ordered By: Romeo Santana on 98-10-5329TVG (Bld) [#/Vol] 4.63 10*6/uL3.60-5.00[facility] Hospitalerum or plasma albumin/globulin mass ratioOrdered By: Romeo Santana on 11-28-2023 Albumin/Globulin [Mass ratio]2.3 {ratio}[facility] Hospitalerum or plasma anion gap determinationOrdered By: Romeo Santana on 34-35-0587Idqcy gap [Moles/Vol]10.4 mmol/L6.0-15.0[facility] Hospitalodium [Moles/volume] in Serum or PlasmaOrdered By: Romeo Santana on 66-17-7668Ubdyur [Moles/Vol]140 mmol/J939-950AdqkqnajrPremier Health Miami Valley Hospital SouthUrea nitrogen [Mass/volume] in Serum or PlasmaOrdered By: Romeo Santana on 55-40-6696Cedt nitrogen [Mass/Vol]7 mg/dL7-25[facility] SouthWBC Auto (Bld) [#/Vol]Ordered By: Romeo Santana on 89-30-4315RJJ (Bld) [#/Vol]6.4 10*3/uL 3.8-11.6FMercy Health Springfield Regional Medical CenterCoding Summaryon 56-71-1158Lbfzpe SummaryHTMLBase 64 OswpivnzZIp1tEx+PGhlYWQ+GX1MENXfM40yvUFlxQ2wC6NFLXgUBqyySQZJNDsWPiAtmvIiLB1ykWSh ZXJu [file] b3J (more content not included)...NormalMagruder HospitalCoding SummaryHTMLBase 64 IvkxolujXWl7yKm+PGhlYWQ+QS0EDAHwE78roSUcqX7vR4APUMeJXdskLCJMVFlIXoBracJrJZ2aiLPn ZXJu [file] b3J (more content not included)...[facility] HospitalProvider Orderson 33-15-8053Cdfikvah [id number]#1.00OTGTIFF [facility] HospitalChlamydia/GC Amplification LCon 46-84-0166Odvbrvhfj trachomatis, AC LCNegativeInvalid Interpretation CodeNegZanesville City Hospital Comment on above:Performed By: #### [id number] #### [facility] (DEFAULT) [address] [place] [address] 16080Gvoimidqg gonorrhoeae, AC LCNegativeInvalid Interpretation CodeNegZanesville City HospitalComment on above:Result Comment: Performed At: =[facility] [id number] Ivan Calvin MD Ph:[phone] By: #### [id number] #### [facility] (DEFAULT) [address] [place] [address] 08687Nqupenu Formson 12-81-8330Cmzzfcz Forms [id number]#1.00OTGTIFFBlanchard Valley Health System [facility] Valley HospitalED Note-Nursingon 68-72-1438EO Note-NursingFluconazole 150mg tab called into [facility] Patient contacted and notified of the results of her culture and the prescription that was sent forher. Instructions on how to take the medication was given, patient verbalized understanding [facility].Auto Diff 1on 32-13-2189Pkbi Lyman %9 %Normal1-12[facility] Comment on above:Performed By: #### [id number], [id number], [id number] #### [facility] (DEFAULT) [address] [place] [address] 15707Sghi Abs#0.0 g65Tkmlgs6.0-0.2Mprovidence hospital HospitalComment on above:Performed By: #### [id number], [id number], [id number] #### [facility] (DEFAULT) [address] [place] [address] 27768Innxseedj/100 WBC (Bld)0.2 %Normal0.2-2.0[facility] Comment on above:Performed By: #### [id number], [id number], [id number] #### [facility] (DEFAULT) [address] [place] [address] 56301Ryg Abs#0.3 p08Goahqv1.0-0.4[facility] HospitalComment on above:Performed By: #### [id number], [id number], [id number] #### [facility] (DEFAULT) [address] [place] [address] 07170Qccbtcemkco/100 WBC (Bld)9.0 %High0.9-4.0[facility] Comment on above:Performed By: #### [id number], [id number], [id number] #### [facility] (DEFAULT) [address] [place] [address] 05722Cnkrn Abs#0.4 v69Cfq9.3-2.9[facility] HospitalComment on above:Performed By: #### [id number], [id number], [id number] #### [facility] (DEFAULT) [address] [place] [address] 29610Absiwgpgfpo/100 WBC (Bld)12 %Khb86-37DjrqxwnoSelect [facility]ty [facility] Comment on above:Performed By: #### [id number], [id number], [id number] #### [facility] (DEFAULT) [address] [place] [address] 79850Qrod Abs#0.3 n65Ciiaey8.0-0.8[facility] HospitalComment on above:Performed By: #### [id number], [id number], [id number] #### [facility] (DEFAULT) [address] [place] [address] 25890Kzgt Abs#2.4 s20Himycg9.5-9.2Mprovidence hospital HospitalComment on above:Performed By: #### [id number], [id number], 3661060 #### [facility] (DEFAULT) [address] [place] [address] 29883Jnhthirxomc/100 WBC (Bld)70 %Iuyudm15-24Vtywqjnr Hospital Comment on above:Performed By: #### [id number], [id number], [id number] #### [facility] (DEFAULT) [address] [place] [address] 38055C Genitalon 11-02-2023 GenitalHeavy growth of Yeast No CARLOS performed on this organism No growth of GC at 3 days. 4+ Gram Positive Rods Few Yeast No WBC's seen. Gram Negative Diplococci not seen.[facility] HospitalComment on above: Performed By: #### [id number] #### [facility] (DEFAULT) [address] [place] [address] 35756LMX w/ Auto Diffon 18-65-3449Mxqeaxnwwun distribution width (RBC) [Ratio]13.7 %Ojejiy70.5-15.0[facility] NorthComment on above: Performed By: #### [id number], [id number], 5094900 #### [facility] (DEFAULT) [address] [place], [place] [address]Hematocrit (Bld) [Volume fraction]40.5 %High33.7-40.4 [facility] NorthComment on above:Performed By: #### [id number], [id number], 6682659 #### [facility] (DEFAULT) [address] [place], [place] [address]Hemoglobin (Bld) [Mass/Vol]13.7 g/xLXegvvi47.3-15.9 [facility] NorthComment on above:Performed By: #### [id number], [id number], 1150121 #### [facility] (DEFAULT) [address] [place] [address] 05385Mon Diff?AutoInvalid Interpretation [facility] Comment on above:Performed By: #### [id number], [id number], [id number] #### [facility] (DEFAULT) [address] [place] [address] 44813JAY (RBC) [Entitic mass]29 vlXblxsx29-50Bmpujrmf Hospital Comment on above:Performed By: #### [id number], 1951613, [id number] #### [facility] (DEFAULT) [address] [place] [address] 55576LVXZ (RBC) [Mass/Vol]34 g/cVKqzxla47-84Luigofol Hospital Comment on above:Performed By: #### [id number], [id number], [id number] #### [facility] (DEFAULT) [address] [place] [address] 92302LFU (RBC) [Entitic vol]85 eKYnzsgc97-658Sbuaqeot Hospital Comment on above:Performed By: #### [id number], 1191257, 7509104 #### [facility] (DEFAULT) [address] [place] [address] 24994Zofwokuu098 q46Enn131-453Ufjjfdbc HospitalComment on above:Performed By: #### [id number], 1851056, 0144259 #### [facility] (DEFAULT) [address] [place] [address] 43522Jnhkwaal mean volume (Bld) [Entitic vol]7.0 fLNormal 6.3-10.2Mprovidence hospital HospitalComment on above:Performed By: #### [id number], [id number], 8420758 #### [facility] (DEFAULT) [address] [place] [address] 70023UPL1.74 z83Ukeofm3.70-5.30[facility] HospitalComment on above:Performed By: #### [id number], 6155303, 1076829 #### [facility] (DEFAULT) [address] [place] [address] 11223OHV4.5 n31Rlvimq3.5-10.5[facility] NorthComment on above: Performed By: #### [id number], [id number], 3072654 #### [facility] (DEFAULT) [address] [place] [address] 54182KFR Standardon 20-51-9172pSXK Non AA>60Invalid Interpretation [facility] HospitalComment on above:Performed By: #### [id number], 1795743, 5244118 #### [facility] (DEFAULT) [address] [place] [address] 13324aFZW AA>60Invalid Interpretation [facility] Comment on above:Performed By: #### [id number], 8926201, [id number] #### [facility] (DEFAULT) [address] [place] [address] 24442Iuzmnjc [Mass/Vol]4.1 g/dLNormal3.5-5.0[facility] Comment on above:Performed By: #### [id number], 2544935, 4206479 #### [facility] (DEFAULT) [address] [place] [address] 80448Vxvhcyu/Globulin [Mass ratio]1.7 {ratio}Normal1.4-2.6 [facility] HospitalComment on above:Performed By: #### [id number], 7712922, 8651440 #### [facility] (DEFAULT) [address] [place] [address] 14676Osl Phos40 IU/WTgebbj93-63Gmpmycal HospitalComment on above:Performed By: #### [id number], 4643210, 5298434 #### [facility] (DEFAULT) [address] [place] [address] 55061HFD [Catalytic activity/Vol]20.0 U/QDaznyi66.0-54.0 [facility] HospitalComment on above:Performed By: #### [id number], 3644580, 1601006 #### [facility] (DEFAULT) [address] [place] [address] 96586Hxbcp gap [Moles/Vol]9.5 mmol/LNormal5.0-19.0[facility] NorthComment on above:Performed By: #### [id number], 2773558, 3130070 #### [facility] (DEFAULT) [address] [place] [address] 19186FTU [Catalytic activity/Vol]19 U/TQpptoo75-22Uxeczkvf HospitalComment on above:Performed By: #### [id number], 1215686, 0047484 #### [facility] (DEFAULT) [address] [place] [address] 76970Wftk Total0.7 mg/dLNormal0.3-1.2Mprovidence hospital HospitalComment on above:Performed By: #### [id number], [id number], 4364737 #### [facility] (DEFAULT) [address] [place] [address] 14661Cohxksr [Mass/Vol]8.4 mg/dLLow8.9-10.3Mprovidence hospital Hospital Comment on above:Performed By: #### [id number], 0638256, 7614840 #### [facility] (DEFAULT) [address] [place] [address] 83789Hrqtzqkr [Moles/Vol]109 mmol/ILeivqd375-037Rbjolcjb HospitalComment on above:Performed By: #### [id number], 2229651, 3807217 #### [facility] (DEFAULT) [address] [place] [address] 61433AJ8 [Moles/Vol]21 mmol/XCppoml78-42Sbuzxksy Hospital Comment on above:Performed By: #### [id number], 5527405, 1081196 #### [facility] (DEFAULT) [address] [place] [address] 36847Tlkmivfmyq [Mass/Vol]0.71 mg/dLNormal0.60-1.30[facility] NorthComment on above:Performed By: #### [id number], 5394625, 4339464 #### [facility] (DEFAULT) [address] [place] [address] 97621Hbaqwwgy (S) [Mass/Vol]2.4 g/dLNormal1.5-4.3MC[facility] Clinic Union HospitalComment on above:Performed By: #### [id number], 3107709, 1956241 #### [facility] (DEFAULT) [address] [place] [address] 75705Zzcpase [Mass/Vol]95.0 mg/jUEfygex36.0-118.0[facility] NorthComment on above:Performed By: #### [id number], 6437915, 1911670 #### [facility] (DEFAULT) [address] [place] [address] 45314Ikutouebvy509 mOsm/LInvalid Interpretation CodeSelect Medical Specialty Hospital - [facility] HospitalComment on above:Performed By: #### [id number], 7388565, 7504325 #### [facility] (DEFAULT) [address] [place] [address] 19737Fmmabriqb [Moles/Vol]3.5 mmol/LLow3.6-5.1Mprovidence hospital Hospital Comment on above:Performed By: #### [id number], 6392176, 9255632 #### [facility] (DEFAULT) [address] [place] [address] 30710Awkptur [Mass/Vol]6.5 g/dLNormal6.5-8.1[facility] Comment on above:Performed By: #### [id number], 2002593, 3926548 #### [facility]DEFAULT[facility] [address] [place] [address] 99305Shmpzc [Moles/Vol]136.0 mmol/TXpirpm372.0-144.0[facility] NorthComment on above:Performed By: #### [id number], 0027478, 0505807 #### [facility] (DEFAULT[facility] [address] [place] [address] 46610Gwey nitrogen [Mass/Vol]7 mg/dLLow8-26[facility] Comment on above:Performed By: #### [id number], 6753143, 4306640 #### [facility] (DEFAULT[facility] [address] [place] [address] 44673Crmc nitrogen/Creatinine [Mass ratio]9.8 mg/mgNormal 4.6-16.2MCleveland Clinic Union HospitalComment on above:Performed By: #### [id number], 9616881, 3177338 #### [facility] (DEFAULT) [address] [place] [address] 89540DR Abdomen/Pelvis w/ Contraston 82-91-7250EV Abdomen/Pelvis w/ ContrastEXAMINATION: CT Abdomen/Pelvis w/ Contrast, [...] Monteiro DO 11/02/23 3:37 pm Technologist: DEYVI DUFFYWVUMedicine [facility] Clinical Summaryon [id number] [facility] [address] [place] [address] [id number] ED Clinical Summary PERSON INFORMATION Name: JAZ SANDERS Age: 28 Years Sex: FEMALE : 1995 MRN: Acct#: Visit Reason: Abdominal pain; Nausea; FLANK/HIP PAIN, FEVER Arrival: 11/02/2023 07:57:28 Discharge: 11/02/2023 13:31:00 LOS: 000 05:34 Check In: 11/02/2023 07:57:28 Checkout:11/02/2023 13:31:00 Address: [facility] [address] PCP: Amanda Ford CNP PROVIDER INFORMATION Provider [...] Follow-Up: With: Address: When: Amanda Ford CNP [address] [place] [address] Within 3 to 5 days DIAGNOSIS: 1:Hip pain Patient Understands: Yes - Patient/family/caregiver verbalizes understanding of instructions given Comment:[facility] Patient Summaryon [id number] Patient Summary [facility] - Emergency Department [address] [place] [address] PATIENT DISCHARGE INSTRUCTIONS Patient Information Name: JAZ SANDERS Age: 28 Years Date of : 1995 Reason For Visit: Abdominal pain; Nausea; FLANK/HIP PAIN, FEVER Arrival Time: 11/02/2023 07:57:28 Primary Care Physician: Amanda Ford CNP Attending Physician: Narda Phillips MD Comment: Visit Diagnosis: Diagnoses This Visit Abdominal pain ([id number]) Hip pain (M25.559) Nausea (DNa9VPH4lSipSnVQl1aoii) The Pharmacy at [facility] is open Tuesday through Tuesday from 9A [...] alcohol and/or drug addiction problems; contact the [facility] 08/11 Crisis Hotline -Text 7NJGX kh [phone]. If you received any narcotics, sedation, or [...] documents With: Address: When: Amanda Ford CNP [facility] [place] [address] Within 3 to 5 days Medication Information: The exam and treatment you received today in the [facility] Emergency Department were for an urgent problem and are not intended as complete care. It is important for you to follow up with a doctor, nurse practitioner, or physician?s project construction assistant manager for ongoing care. If your [...] if necessary. [facility] Emergency Department has provided you with a complete list of medications post discharge. Please inform your timekeeper/provider of your visit and for further instruction on these medications. Any specific questions regarding your chronic medications and dosages should be discussed with your primary care physician(s) and/or pharmacist. [facility] [address] [place], [place] [id number], [phone] cyclobenzaprine (cyclobenzaprine 10 mg oral tablet) 1 [...] Refills: 0. lidocaine topic (more content not included)...[facility] HospitalExtra Green on 73-89-4446Mbzl CollectedYesInvalid Interpretation [facility] Comment on above:Performed By: #### [id number], [id number], [id number] #### [facility] (DEFAULT) [address] [place] [address] 85223Yqzbefbsj Test Urine 1on 11-02-2023U PregNegativeUniversity Hospitals Elyria Medical CenterComment on above:Performed By: #### [id number] #### [facility] (DEFAULT) [address] [place] [address] 03206L Preg Internal ControlPassBlanchard Valley Health System [facility] Valley HospitalComment on above:Performed By: #### [id number] #### [facility] (DEFAULT) [address] [place] [address] 91506ME Bxoap9vs 95-56-2996YV BacteriaTraceBlanchard Valley Health System Bl[facility] Valley HospitalComment on above:Order Comment: Urinalysis Microscopic order added on by [employer] Rules system.Performed By: #### [id number] #### [facility] (DEFAULT) [address] [place] [address] 78750YH Mucous1+[facility] Valley HospitalComment on above:Order Comment: Urinalysis Microscopic order added on by Spotted Expert Rules system. Performed By: #### [id number] #### [facility] (DEFAULT) [address] [place] [address] 85999KC RBCNone SeenMain Campus Medical Center HospitalComment on above: Order Comment: Urinalysis Microscopic order added on by Spotted Expert Rules system.Performed By: #### [id number] #### [facility] (DEFAULT) [address] [place] [address] 90866LL Squam EpiFewNoSycamore Medical Center HospitalComment on above: Order Comment: Urinalysis Microscopic order added on by Discern Expert Rules system.Performed By: #### [id number] #### [facility] (DEFAULT) [address] [place] [address] 30450FA WBCNone SeenMain Campus Medical Center HospitalComment on above: Order Comment: Urinalysis Microscopic order added on by Spotted Expert Rules system.Performed By: #### [id number] #### [facility] (DEFAULT) [address] [place] [address] 18153YL w Culture if Ind Standardon 44-82-1374Rbrscxjghf UA NormalSelect Medical Specialty Hospital [facility] HospitalComment on above:Performed By: #### [id number] #### [facility] (DEFAULT) [address] [place] [address] 91996Xxmci (U)Dark YellowNoSelect Medical Specialty Hospital - Southeast OhioComment on above:Performed By: #### [id number] #### [facility] (DEFAULT) [address] [place] [address] [id number]?Not IndicatedInvalid Interpretation [facility] HospitalComment on above:Result Comment: Result created by rule GL_MAGR_ADD_UA_CULTPerformed By: #### [id number] #### [facility] (DEFAULT) [address] [place] [address] [id number] (U) [Mass/Vol]NegativeMain Campus Medical Center Hospital Comment on above:Performed By: #### [id number] #### [facility] (DEFAULT) [address] [place] [address] [id number] Ql (U)TRACENormalMagruder HospitalComment on above:Performed By: #### [id number] #### [facility] (DEFAULT) [address] [place] [address] [id number]?IndicatedInvalid Interpretation CodeCogruder HospitalComment on above:Result Comment: Result created by rule GL_MAGR_ADD_UA_MICROPerformed By: #### [id number] #### [facility] (DEFAULT) [address] [place] [address] [id number] BilirubinMODERATEAbnormalCogrmetrohealth main campus medical center HospitalComment on above:Performed By: #### [id number] #### [facility] (DEFAULT) [address] [place] [address] [id number] BloodNegativeNormalNEGATIVEMagrmetrohealth main campus medical center HospitalComment on above:Performed By: #### [id number] #### [facility] (DEFAULT) [address] [place] [address] [id number] ClaritySL CLOUDYAbnormalCLEARMagrmetrohealth main campus medical center HospitalComment on above:Performed By: #### [id number] #### [facility] (DEFAULT) [address] [place] [address] [id number] Leuk EstNegativeNormalNEGATIVESelect Medical Specialty [facility] HospitalComment on above:Performed By: #### [id number] #### [facility] (DEFAULT) [address] [place] [address] [id number] NitriteNegativeNormalNEGATIVECogrmetrohealth main campus medical center HospitalComment on above:Performed By: #### [id number] #### [facility] (DEFAULT) [address] [place] [address] [id number] pH6.9Issudo6-9Msrpvanz HospitalComment on above: Performed By: #### [id number] #### [facility] (DEFAULT) [address] [place] [address] 11430DH Gzfffsp40SkvtbfvmPHTFDIWFBhxsxkas HospitalComment on above:Performed By: #### [id number] #### [facility] (DEFAULT) [address] [place] [address] [id number] Spec Grav>=1.567Rlqnbt1.001-1.035[facility] Comment on above:Performed By: #### [id number] #### [facility] (DEFAULT) [address] [place] [address] [id number] Urobilinogen1.0 mg/dLNormal0.2-1.0[facility] Comment on above:Performed By: #### [id number] #### [facility] (DEFAULT) [address] [place] [address] 63278Icmnr SourceClean CatchBlanchard Valley Health System Blanch[facility] Valley HospitalComment on above:Performed By: #### [id number] #### [facility] (DEFAULT) [address] [place] [address] 41576Pss [facility].on 30-23-1101Qur [facility] Hospital of Toms RiverComment on above:Performed By: #### [id number] #### [facility] (DEFAULT) [address] [place] [address] 77620Eoqzbq Summaryon 47-82-0032Buguce SummaryHTMLBase 64 RcsnfwlsMUs8eTe+PGhlYWQ+VA7DIZLuO82muWSbjK3kB2XCOHpLEdwyLLXCGRgEQoNtiuYvMO0wpNIw ZXJu [file] [facility] (more content not included)...[facility] HospitalBasophils Auto (Bld) [#/Vol]on 69-81-1092Xfwiihrwt (Bld) [#/Vol]0.0 x100.0-0.2FMercy Health Springfield Regional Medical CenterBasophils/100 WBC Auto (Bld)on 72-19-2873Lvbqqdbxi/100 WBC (Bld) 0.3 %0.2-2.0[facility] SouthEosinophils/100 WBC Auto (Bld)on 09-20-5432Vgltoukricv/100 WBC (Bld)2.7 %0.9-4.0[facility] Erythrocyte distribution width Auto (RBC) [Ratio]on 00-79-9929Ittffxiuzmw distribution width (RBC) [Ratio]14.1 %11.5-15.0[facility] Hematocrit Auto (Bld) [Volume fraction]on 42-16-8980Cuiltzykhy (Bld) [Volume fraction]41.4 %High33.7-40.4FMercy Health Springfield Regional Medical CenterHemoglobin [Mass/volume] in Bloodon 86-49-5275Dnfprxtdxq (Bld) [Mass/Vol]14.0 g/dL11.3-15.9 [facility] SouthIron binding capacity [Mass/volume] in Serum or Plasmaon 21-37-1550Hqsz binding capacity [Mass/Vol]405 mcg/cFAoct837-792 [facility] SouthIron saturation [Mass Fraction] in Serum or Plasmaon 86-76-7869Oyac saturation [Mass fraction]12 %Cis19-64HdxapiiplPremier Health Miami [facility] Hospital SouthLaboratory - Chemistry and Chemistry - challengeon 34-96-4111Cnvq [Mass/Vol]48.0 ug/dL28.0-170.0[facility] SouthTransferrin [Mass/Vol]289.2 mg/dL192.0-382.0[facility] SouthLeukocytes [#/volume] corrected for nucleated erythrocytes in Blood by Automated counon 22-15-8371UEX corrected for nucl RBC Auto (Bld) [#/Vol]6.4 x103.5-10.5FMercy Health Springfield Regional Medical CenterLymphocytes Auto (Bld) [#/Vol]on 84-66-4915Dloteibjpum (Bld) [#/Vol]2.2 x101.3-2.9[facility] SouthLymphocytes/100 WBC Auto (Bld)on 73-28-1361Ifvdjhjxfoq/100 WBC (Bld)34 %14-48Prem[facility] Hospital SouthMCH Auto (RBC) [Entitic mass]on 93-07-3759VSE (RBC) [Entitic mass] 29 iu11-28QhhpnqzoaPremier Health Miami Valley Hospital SouthMCHC Auto (RBC) [Mass/Vol]on 08-04-5181GLMZ (RBC) [Mass/Vol]34 g/wK42-05YcmgivdwcPremier Health Miami Valley Hospital SouthMCV Auto (RBC) [Entitic vol]on 03-84-8717QBJ (RBC) [Entitic vol]87 bD76-177HdswqwmcrPremier Health Miami Valley Hospital SouthMonocytes Auto (Bld) [#/Vol]on 49-69-1109Jlalfobla (Bld) [#/Vol]0.4 x100.0-0.8[facility] SouthMonocytes/100 WBC Auto (Bld)on 52-48-6887Cgdxdttid/100 WBC (Bld)6 %1-12Prem[facility] SouthNeutrophils Auto (Bld) [#/Vol]on 50-19-2030Rvnefmonhrv (Bld) [#/Vol]3.7 x101.5-9.2FMercy Health Springfield Regional Medical CenterNeutrophils/100 WBC Auto (Bld)on 22-56-5976Jbdmebbcnmz/100 WBC (Bld)57 %44-88Prem[facility] SouthNo Panel Informationon 21-26-7329Sbj Manual DifferentialAuto AutoPremier Health Miami Valley Hospital SouthEosinophils # (Auto)0.2 x100.0-0.4FMercy Health Springfield Regional Medical CenterPlatelet mean volume Auto (Bld) [Entitic vol]on 74-67-0328Xjbvtqqf mean volume (Bld) [Entitic vol]6.7 fL6.3-10.2FMercy Health Springfield Regional Medical Center Platelets Auto (Bld) [#/Vol]on 84-09-2073Ynafzadue (Bld) [#/Vol]179 e55692-892 [facility] SouthRBC Auto (Bld) [#/Vol]on 50-93-6446WYB (Bld) [#/Vol]4.76 x103.70-5.30[facility] SouthFollitropin [Units/volume] in Serum or PlasmaOrdered By: LEOBARDO BARROSO on 06-23-2022 Follitropin Qn6.2 m[IU]/mLPremier Health Miami Valley Hospital SouthComment on above: FEMALE NORMALS (PREMENOPAUSE) MID-FOLLICULAR PHASE: 3.9-8.8 mIU/mL MID-CYCLE PEAK: 4.5-22.5 mIU/mL MID-LUTEAL PHASE: 1.8-5.1 mIU/mLFEMALE NORMALS (POSTMENOPAUSE): 16.7-113.6 mIU/mLMALE NORMALS: 1.3-19.3 mIU/mLProlactin [Mass/volume] in Serum or PlasmaOrdered By: LEOBARDO BARROSO on 06-23-2022 Prolactin [Mass/Vol]7.58 ng/mL3.34-26.72[facility] SouthCT biopsyOrdered By: Amanda Ford on 12-11-9093Vqdpdxchvzq [Mass/Vol]393 mg/fV903-196ZsqpozmuuPremier Health Miami Valley Hospital SouthIron [Mass/volume] in Serum or PlasmaOrdered By: Amanda Ford on 56-01-8830Sxjp [Mass/Vol]34 ug/xC39-513 [facility] SouthIron binding capacity [Mass/volume] in Serum or PlasmaOrdered By: Amanda Ford on 43-05-9612Dgtd binding capacity [Mass/Vol]550 ug/iY324-729QsvgzrjicPremier Health Miami Valley Hospital SouthIron saturation [Mass Fraction] in Serum or PlasmaOrdered By: Amanda Ford on 52-04-5075Xfvd saturation [Mass fraction]6.2 %20-50[facility] Anisocytosis LM Ql (Bld)Ordered By: Farhad Gallego on 60-07-6618Htldtmzhpanh Ql (Bld)MarkedPremier Health Miami Valley Hospital SouthBasophils Auto (Bld) [#/Vol]Ordered By: Farhad Gallego on 47-01-2489Cchyrmals (Bld) [#/Vol]N/[facility] HospitalBasophils/100 WBC Auto (Bld)Ordered By: Farhda Gallego on 06-11-2022 Basophils/100 WBC (Bld)N/[facility] HospitalBasophils/100 WBC Manual cnt (Bld)Ordered By: Farhad Gallego on 22-69-7048Xrrahdauk/100 WBC (Bld)1 % 0-2FMercy Health Springfield Regional Medical CenterEosinophils Auto (Bld) [#/Vol]Ordered By: Farhad Gallego on 79-62-2742Oqvstoroven (Bld) [#/Vol]N/[facility] HospitalEosinophils/100 WBC Auto (Bld)Ordered By: Farhad Lashonda on 06-11-2022 Eosinophils/100 WBC (Bld)N/[facility] HospitalEosinophils/100 WBC Manual cnt (Bld)Ordered By: Farhad Lashonda on 30-53-2399Xclyrnaecms/100 WBC (Bld) 7 %1-3FMercy Health Springfield Regional Medical CenterErythrocyte distribution width Auto (RBC) [Ratio]Ordered By: Farhad Lashonda on 59-28-5068Bxupwvuxtyh distribution width (RBC) [Ratio]26.1 %11.9-15.3FMercy Health Springfield Regional Medical CenterHematocrit Auto (Bld) [Volume fraction]Ordered By: Farhad Lashonda on 38-73-9901Ijyqaxjfkq (Bld) [Volume fraction]25.7 %34.0-46.4FMercy Health Springfield Regional Medical CenterHemoglobin [Mass/volume] in BloodOrdered By: Farhad Lashonda on 97-49-6473Ndpwgicxno (Bld) [Mass/Vol]8.0 g/dL11.8-15.4FMercy Health Springfield Regional Medical CenterHypochromia LM Ql (Bld)Ordered By: Farhad Lashonda on 43-70-3004Mfszwzpfyfr Ql (Bld)[facility] SouthwoodsLeukocytes [#/volume] corrected for nucleated erythrocytes in Blood by Automated counOrdered By: Farhad Lashonda on 88-52-4076DJQ corrected for nucl RBC Auto (Bld) [#/Vol]5.0 10*3/uL3.8-11.6FMercy Health Springfield Regional Medical CenterLymphocytes Auto (Bld) [#/Vol]Ordered By: Farhad Lashonda on 71-77-0245Idnomdunxhs (Bld) [#/Vol]N/[facility] Lymphocytes/100 WBC Auto (Bld)Ordered By: Farhad Lashonda on 06-11-2022 Lymphocytes/100 WBC (Bld)N/[facility] HospitalLymphocytes/100 WBC Manual cnt (Bld)Ordered By: Farhad Lashonda on 07-78-5955Tymigadsaae/100 WBC (Bld) 56 %18-42Prem[facility] SouthMCH Auto (RBC) [Entitic mass]Ordered By: Farhad Lashonda on 63-96-3766OWE (RBC) [Entitic mass]21.1 pg24.7-34.3FMercy Health Springfield Regional Medical CenterMCHC Auto (RBC) [Mass/Vol]Ordered By: Farhad Lashonda on 69-63-6446BFCS (RBC) [Mass/Vol]31.2 g/dL32.0-35.0[facility] SouthMCV Auto (RBC) [Entitic vol]Ordered By: Farhad Lashonda on 52-19-7928WJD (RBC) [Entitic vol]67.6 iJ77-742AqsetohwhPremier Health Miami Valley Hospital SouthMicrocytes LM Ql (Bld)Ordered By: Farhad Lashonda on 63-70-3863Cxmpucsfdv Ql (Bld)MarkedPremier Health Miami Valley Hospital SouthMonocytes Auto (Bld) [#/Vol]Ordered By: Farhad Lashonda on 62-43-1879Hqwjkzylh (Bld) [#/Vol]N/[facility] Monocytes/100 WBC Auto (Bld)Ordered By: Farhad Lashonda on 73-98-3185Mujrbpxuf/100 WBC (Bld)N/[facility] HospitalMonocytes/100 WBC Manual cnt (Bld) Ordered By: Farhad Lashonda on 15-96-7331Xxspoados/100 WBC (Bld)5 %2-11Prem[facility] SouthNeutrophils Auto (Bld) [#/Vol]Ordered By: Farhad Lashonda on 48-79-9938Lnkgzguhfif (Bld) [#/Vol]N/[facility] Neutrophils/100 WBC Auto (Bld)Ordered By: Farhad Lashonda on 06-11-2022 Neutrophils/100 WBC (Bld)N/[facility] HospitalNucleated erythrocytes [Presence] in Blood by Automated countOrdered By: Farhad Lashonda on 58-02-1617Moantmitr RBC Auto Ql (Bld)N/[facility] Platelet adequacy [Presence] in Blood by Light microscopyOrdered By: Farhad Lashonda on 92-06-8593Hnfyeyrni LM Ql (Bld)NormalNoMercy Health Kings Mills HospitalPlatelet mean volume Auto (Bld) [Entitic vol]Ordered By: Farhad Lashonda on 96-60-3075Waoskoqp mean volume (Bld) [Entitic vol]8.2 fL6.3-10.7FMercy Health Springfield Regional Medical CenterPlatelet morphology finding [Identifier] in BloodOrdered By: FarhadMerchant on 41-32-6591Nunptoxk morphology finding Nom (Bld)NormalNoSheltering Arms HospitalPlatelets Auto (Bld) [#/Vol]Ordered By: Farhad Lashonda on 40-04-8682Bnhwbsgfv (Bld) [#/Vol]165 10*3/yR875-677CswbktmbwPremier Health [facility] Hospital SouthPolychromasia [Presence] in Blood by Light microscopyOrdered By: Farhad Gallego on 40-64-8183Tdloriiyjwxsb LM Ql (Bld)[facility] HospitalRB Auto (Bld) [#/Vol]Ordered By: Farhad Gallego on 03-26-2585NCM (Bld) [#/Vol]3.80 10*6/uL3.60-5.00[facility] Hospital SouthRB morphologyOrdered By: Farhad Gallego on 15-13-4741WGF morphology finding Nom (Bld) N/AFSt. Francis Hospitalegmented neutrophils/100 WBC Manual cnt (Bld)Ordered By: Farhad Gallego on 66-15-8992Fkwwzxvxs neutrophils/100 WBC (Bld)32 %50-70Prem[facility] SouthWBC Auto (Bld) [#/Vol]Ordered By: Farhad Gallego on 79-34-8256YSG (Bld) [#/Vol]5.0 10*3/uL3.8-11.6FMercy Health Springfield Regional Medical CenterActivated partial thromboplastin time (aPTT) in platelet poor plasma by coagulation aOrdered By: Jean Jett on 52-39-8663rMON Coag (PPP) [Time]29.8 s25.1-36.5FMercy Health Springfield Regional Medical CenterAnisocytosis LM Ql (Bld) Ordered By: Jean Jett on 48-06-5548Jrqzorcldvty Ql (Bld)[facility] HospitalBasophils Auto (Bld) [#/Vol]Ordered By: Jean Jett on 47-65-2294Cubbogbcs (Bld) [#/Vol]0.1 10*3/uL0.0-0.2FMercy Health Springfield Regional Medical CenterBasophils/100 WBC Auto (Bld)Ordered By: Jean Jett on 06-10-2022 Basophils/100 WBC (Bld)1.8 %.[facility] SouthBilirubin Test strip Ql (U)Ordered By: Jean Jett on 13-48-8563Akxsbfohh Ql (U)Negative NegativePremier Health Miami Valley Hospital SouthCT biopsyOrdered By: Jean Jett on 42-02-9645Ubglwxuhaut [Mass/Vol]380 mg/kZ021-409NddrvfgbsPremier Health Miami [facility] Hospital SouthCalcium [Mass/volume] in Serum or PlasmaOrdered By: Jean Jett on 16-64-4254Tejgcxs [Mass/Vol]8.6 mg/dL8.2-10.2FMercy Health Springfield [facility] Center Carbon dioxide, total [Moles/volume] in Serum or PlasmaOrdered By: Jean Jett on 11-33-1945GF7 [Moles/Vol]23.3 mmol/L22.0-30.0[facility] SouthChloride [Moles/volume] in Serum or PlasmaOrdered By: Jean Jett on 82-05-3050Beyvbpaq [Moles/Vol]106 mmol/S65-394DxepyivxoPremier Health [facility] Hospital South Color Auto (U)Ordered By: Jean Jett on 67-67-0991Qemyu (U)YellowYellow [facility] SouthCreatine kinase [Enzymatic activity/volume] in Serum or PlasmaOrdered By: Jean Jett on 03-70-0903WS [Catalytic activity/Vol] 100 U/E77-985KsdgitctoPremier Health Miami Valley Hospital SouthCreatinine and Glomerular filtration rate.predicted panel (S/P/Bld)Ordered By: Jean Jett on 06-10-2022 Creatinine [Mass/Vol]0.71 mg/dL0.44-1.03[facility] Eosinophils Auto (Bld) [#/Vol]Ordered By: Jean Jett on 06-18-9719Djbhwzrggbh (Bld) [#/Vol]0.3 10*3/uL0.0-0.45[facility] SouthEosinophils/100 WBC Auto (Bld)Ordered By: Jean Jett on 67-12-8791Pdchjypmcje/100 WBC (Bld) 5.0 %.[facility] SouthErythrocyte distribution width Auto (RBC) [Ratio]Ordered By: Jean Jett on 71-58-3306Jolxgqxkdpd distribution width (RBC) [Ratio]24.6 %11.9-15.3FMercy Health Springfield Regional Medical CenterEstimated glomerular filtration rate (GFR) non- AmericanOrdered By: Jean Jett on 65-10-1600YMM/1.73 sq M.predicted among non-blacks MDRD (S/P/Bld) [Vol rate/Area]> 60 mL/MinPremier Health Miami Valley Hospital SouthFecal occult blood detection by immunochemistryOrdered By: Jean Jett on 06-10-2022 Hemoglobin.gastrointestinal Ql (Stl)[facility] SouthGlucose [Mass/volume] in Serum or PlasmaOrdered By: Jean Jett on 09-42-9493Bbowigz [Mass/Vol]94 mg/xD10-926WnblsckhkPremier Health [facility] Hospital SouthComment on above:ADA recommended reference rangeRandom Glucose Reference Range is dependent on time and content of last meal. Glucose of more than 200 mg/dL in a nonstressed, ambulatory subject supports the diagnosisof Diabetes Mellitus.HCG ( test) IA.rapid Ql (U)Ordered By: Jean Jett on 66-01-6960HOB ( test) Ql (U)NegativePremier Health Miami Valley Hospital SouthHematocrit Auto (Bld) [Volume fraction]Ordered By: Jean Jett on 33-05-8087Jsogkvqfad (Bld) [Volume fraction]23.8 %34.0-46.4FMercy Health Springfield Regional Medical CenterHemoglobin [Mass/volume] in BloodOrdered By: Jean Jett on 58-06-4305Utdadledpn (Bld) [Mass/Vol]7.3 g/dL11.8-15.4FMercy Health Springfield Regional Medical CenterHypochromia LM Ql (Bld)Ordered By: Jean Jett on 55-98-5515Cbcamlxhxst Ql (Bld)MarkedPremier Health Miami Valley Hospital SouthIron [Mass/volume] in Serum or PlasmaOrdered By: Jean Jett on 91-67-0441Rhzh [Mass/Vol]25 ug/iE74-027MuplfhplrPremier Health [facility] Hospital SouthIron binding capacity [Mass/volume] in Serum or PlasmaOrdered By: Jean Jett on 91-34-5481Nzfw binding capacity [Mass/Vol]532 ug/aE242-257BlmdfuuluPremier Health Miami Valley Hospital SouthIron saturation [Mass Fraction] in Serum or PlasmaOrdered By: Jean Jett on 38-02-1385Gykq saturation [Mass fraction]4.7 %20-50Prem[facility] SouthKetones Auto test strip (U) [Mass/Vol]Ordered By: Jean Jett on 73-98-9394Itevnnp (U) [Mass/Vol]NegativeNegativePremier Health Miami Valley Hospital SouthLaboratory - Chemistry and Chemistry - challengeOrdered By: Jean Jett on 00-90-1116Fyligoicm [Mass/Vol]1.9 mg/dL1.6-2.6FMercy Health Springfield Regional Medical CenterNatriuretic peptide B (Bld) [Mass/Vol]23.0 pg/mL5-100Prem[facility] SouthLaboratory - CoagulationOrdered By: Jean Jett on 16-98-3515KA Coag (PPP) [Time]12.9 s9.0-12.9[facility] Leukocytes [#/volume] corrected for nucleated erythrocytes in Blood by Automated counOrdered By: Jean Jett on 69-64-7220POH corrected for nucl RBC Auto (Bld) [#/Vol]5.3 10*3/uL3.8-11.6FMercy Health Springfield Regional Medical CenterLymphocytes Auto (Bld) [#/Vol]Ordered By: Jean Jett on 04-18-8735Wxcpiibafxy (Bld) [#/Vol]2.2 10*3/uL1.00-4.8[facility] SouthLymphocytes/100 WBC Auto (Bld) Ordered By: Jean Jett on 00-52-8042Afhgzoluefg/100 WBC (Bld)41.3 %.[facility] SouthMCH Auto (RBC) [Entitic mass]Ordered By: Jean Jett on 49-55-6757BFZ (RBC) [Entitic mass]19.7 pg24.7-34.3FMercy Health Springfield Regional Medical CenterMCHC Auto (RBC) [Mass/Vol]Ordered By: Jean Jett on 88-22-6278ZCJO (RBC) [Mass/Vol]30.6 g/dL32.0-35.0[facility] SouthMCV Auto (RBC) [Entitic vol]Ordered By: Jean Jett on 85-06-7618XKE (RBC) [Entitic vol]64.5 wV04-772VwknchknhPremier Health [facility] Hospital SouthMicrocytes LM Ql (Bld)Ordered By: Jean Jett on 25-20-8885Plbuddnrqv Ql (Bld)MarkedPremier Health Miami Valley Hospital SouthMonocyte distribution width [Entitic volume] in Blood by AutomatedOrdered By: Jean Jett on 38-73-2646Rmwqatgm distribution width Auto (Bld) [Entitic vol]17.54 %0.00-20.00[facility] SouthMonocytes Auto (Bld) [#/Vol]Ordered By: Jean Jett on 75-84-7933Myjrfapcx (Bld) [#/Vol]0.4 10*3/uL 0.0-0.8[facility] SouthMonocytes/100 WBC Auto (Bld)Ordered By: Jean Jett on 81-50-7147Eavbmspwx/100 WBC (Bld)6.8 %.[facility] SouthNeutrophils Auto (Bld) [#/Vol]Ordered By: Jean Jett on 63-73-3304Yqblymhkpdl (Bld) [#/Vol]2.4 10*3/uL1.8-7.7FMercy Health Springfield Regional Medical CenterNeutrophils/100 WBC Auto (Bld)Ordered By: Jean Jett on 06-10-2022 Neutrophils/100 WBC (Bld)45.1 %.[facility] SouthNitrite Test strip Ql (U)Ordered By: Jean Jett on 10-70-1632Umvprwh Ql (U)NegativeNegative [facility] SouthNo Panel InformationOrdered By: Jean Jett on 27-07-6225Awgutqvkw GFR ()> 60 mL/MinPremier Health Miami Valley Hospital SouthComment on above:GFR estimated reference range: According to KDOQI guidelines, <60 ml/min/1.73m2 is sufficient todiagnose a patient with chronic kidney disease.Pharmacy Creatinine Clearance (Ggmk415.49[facility] SouthNucleated erythrocytes [Presence] in Blood by Automated count Ordered By: Jean Jett on 36-12-7066Uaixqgdzd RBC Auto Ql (Bld)0.1 /100{WBC} 0-0.5FMercy Health Springfield Regional Medical CenterOvalocyte detectionOrdered By: Jean Jett on 24-77-0436Akpauhsptt LM Ql (Bld)SlightPremier Health [facility] Hospital South Platelet adequacy [Presence] in Blood by Light microscopyOrdered By: Jean Jett on 88-63-5027Dgbwukjkq LM Ql (Bld)NormalNormCentervillePlatelet mean volume Auto (Bld) [Entitic vol]Ordered By: Jean Jett on 39-11-0035Cegdleej mean volume (Bld) [Entitic vol]8.3 fL6.3-10.7FMercy Health Springfield Regional Medical CenterPlatelet morphology finding [Identifier] in BloodOrdered By: Jean Jett on 90-61-1105Pyuqsmxr morphology finding Nom (Bld)NormalNormal [facility] SouthPlatelet poor plasma international normalized ratio (INR) by coagulation assay (relatOrdered By: Jean Jett on 95-55-6795MKC Coag (PPP) [Relative time]1.1 {INR}[facility] SouthComment on above:INR Therapeutic Range A) Pre- and [...] Auto (Bld) [#/Vol]Ordered By: Jean Jett on 32-94-9638Fqnbexpux (Bld) [#/Vol]202 10*3/aR949-765PfdqrloxbPremier Health Miami [facility] Hospital SouthPoikilocytosis [Presence] in Blood by Light microscopyOrdered By: Jean Jett on 82-83-9898Riyqbemzbwyqga LM Ql (Bld)[facility] HospitalPolychromasia [Presence] in Blood by Light microscopyOrdered By: Jean Jett on 86-46-3809Hdwrmerrrzbnl LM Ql (Bld)[facility] HospitalPotassium [Moles/volume] in Serum or PlasmaOrdered By: Jean Jett on 43-62-6567Yhraiqxvm [Moles/Vol]4.1 mmol/L3.5-5.1FMercy Health Springfield Regional Medical CenterProtein Auto test strip (U) [Mass/Vol]Ordered By: Jean Jett on 58-12-3786Yaryegb (U) [Mass/Vol]NegativeNegativePremier Health [facility] Hospital SouthRBC Auto (Bld) [#/Vol]Ordered By: Jean Jett on 42-16-8191UJQ (Bld) [#/Vol]3.69 10*6/uL3.60-5.00[facility] morphology Ordered By: Jean Jett on 54-79-3390DRN morphology finding Nom (Bld)N/A [facility] Hospitalerum or plasma anion gap determinationOrdered By: Jean Jett on 14-78-3736Oxbay gap [Moles/Vol]10.8 mmol/L6.0-15.0[facility] Hospitalodium [Moles/volume] in Serum or PlasmaOrdered By: Jean Jett on 27-08-4332Mbhssh [Moles/Vol]136 mmol/L933-191CzadqykhnParkview Health Montpelier Hospitalpecific gravity Auto test strip (U) [Rel density]Ordered By: Jean Jett on 68-84-2704Uxefntqt gravity (U) [Rel density]1.0101.001-1.030 [facility] SouthTarget cellsOrdered By: Jean Jett on 73-26-6417Msolwl cells LM Ql (Bld)[facility] Teardrop cell detectionOrdered By: Jean Jett on 04-69-9044Hnxjcnzqxp LM Ql (Bld)[facility] HospitalTroponin I.cardiac [Mass/volume] in Serum or Plasma by High sensitivity methodOrdered By: Jean Jett on 06-10-2022 Troponin I.cardiac High sensitivity method [Mass/Vol]< 3 pg/mL0-15[facility] SouthUrea nitrogen [Mass/volume] in Serum or PlasmaOrdered By: Jean Jett on 83-00-3712Slvc nitrogen [Mass/Vol]9 mg/dL9[facility] SouthUrine clarity by refractometry automatedOrdered By: Jean Jett on 72-74-7463Vudhbyv Refractometry automated (U)ClearClearFMercy Health Springfield Regional Medical CenterUrine glucose measurement by automated test strip (mass/volume) Ordered By: Jean Jett on 14-71-6008Rdrpqwy Auto test strip (U) [Mass/Vol] Normal mg/dLNoMercy Health Kings Mills HospitalUrine hemoglobin detection by automated test stripOrdered By: Jean Jett on [id number] Auto test strip Ql (U)NegativeNegKettering Health Greene MemorialUrine leukocyte esterase detection by automated test stripOrdered By: Jean Jett on 06-10-2022 Leukocyte esterase Auto test strip Ql (U)NegativeNegKettering Health Greene MemorialUrobilinogen Auto test strip (U) [Mass/Vol]Ordered By: Jean Jett on [id number] (U) [Mass/Vol]Normal mg/dLNoMercy Health Kings Mills HospitalWBC Auto (Bld) [#/Vol]Ordered By: Jean Jett on 94-69-1468PTB (Bld) [#/Vol]5.3 10*3/uL3.8-11.6FMercy Health [facility] Center pH Auto test strip (U)Ordered By: Jean Jett on 33-53-3049xY (U)5.5 [pH] 5.0-9.0[facility] SouthAlkaline phosphatase [Enzymatic activity/volume] in Serum or PlasmaOrdered By: Julieta Jefferson on 79-32-0475VUG [Catalytic activity/Vol]39 U/U42-88GihyvwfxuPremier Health Miami Valley Hospital SouthAnisocytosis LM Ql (Bld)Ordered By: Julieta Jefferson on 19-10-2837Thxjoyvvozcz Ql (Bld)Marked [facility] SouthAspartate aminotransferase [Enzymatic activity/volume] in Serum or PlasmaOrdered By: Julieta Jefferson on 47-50-8963CYN [Catalytic activity/Vol]15 U/A90-34BbilyfsikPremier Health [facility] Hospital SouthBasophils Auto (Bld) [#/Vol]Ordered By: Julieta Jefferson on 83-83-1853Nrwhecftu (Bld) [#/Vol] 0.1 10*3/uL0.0-0.2FMercy Health Springfield Regional Medical CenterBasophils/100 WBC Auto (Bld) Ordered By: Julieta Jefferson on 76-89-7157Ripawvygy/100 WBC (Bld)1.4 %.[facility] SouthBody fluid albumin measurement (mass/volume)Ordered By: Julieta Jefferson on 43-42-2460Bakfupa (Body fld) [Mass/Vol]4.1 g/dL3.2-5.5FMercy Health Springfield Regional Medical CenterCalcium [Mass/volume] in Serum or PlasmaOrdered By: Julieta Jefferson on 27-97-2483Nxiczml [Mass/Vol]9.0 mg/dL8.2-10.2FMercy Health Springfield Regional Medical CenterCarbon dioxide, total [Moles/volume] in Serum or PlasmaOrdered By: Julieta Jefferson on 53-06-4873BC1 [Moles/Vol]23.3 mmol/L22.0-30.0[facility] SouthCholesterol [Mass/volume] in Serum or PlasmaOrdered By: Julieta Jefferson on 80-45-4997Bgxfjhdedxb [Mass/Vol]137 mg/eO077-189DfnmumsgrPremier Health Miami [facility] Hospital SouthComment on above:Chol less than 200 mg/dl low riskChol 201-239 mg/dl borderline riskChol 240 mg/dl and greater high riskCholesterol in LDL Calc [Mass/Vol]Ordered By: Julieta Jefferson on 18-72-3002Debhszfwnmg in LDL [Mass/Vol]72 mg/dL0-100Prem[facility] SouthComment on above:LDL ATP III CLASSIFICATIONLDL less than 100 mg/dL OptimalLDL 100-129 mg/dL Near or above suoujmuPYL421-920 mg/dL Borderline highLDL 160-189 mg/dL HighLDL greater than 189 mg/dL Very highCholesterol in VLDL Calc [Mass/Vol]Ordered By: Julieta Jefferson on 04-93-5446Tlvxkwcvtvq in VLDL [Mass/Vol]9 mg/dLPremier Health Miami Valley Hospital SouthCreatinine and Glomerular filtration rate.predicted panel (S/P/Bld)Ordered By: Julieta Jefferson on 29-83-1563Uyollkbuyp [Mass/Vol]0.59 mg/dL0.44-1.03[facility] SouthEosinophils Auto (Bld) [#/Vol]Ordered By: Julieta Jefferson on 17-88-1524Pxcavyqadol (Bld) [#/Vol]0.3 10*3/uL0.0-0.45[facility] SouthEosinophils/100 WBC Auto (Bld)Ordered By: Julieta Jefferson on 06-09-2022 Eosinophils/100 WBC (Bld)6.8 %.[facility] SouthErythrocyte distribution width Auto (RBC) [Ratio]Ordered By: Julieta Jefferson on 06-09-2022 Erythrocyte distribution width (RBC) [Ratio]24.5 %11.9-15.3FMercy Health Springfield Regional Medical CenterEstimated glomerular filtration rate (GFR) non- Ordered By: Julieta Jefferson on 45-91-2574KLC/1.73 sq M.predicted among non-blacks MDRD (S/P/Bld) [Vol rate/Area]> 60 mL/MinPremier Health Miami Valley Hospital South Globulin Calc (S) [Mass/Vol]Ordered By: Julieta Jefferson on 94-92-4768Lwcqjobh (S) [Mass/Vol]2.3 g/dLPremier Health Miami Valley Hospital SouthGlucose mean value [Mass/volume] in Blood Estimated from glycated hemoglobinOrdered By: Julieta Jefferson on 14-14-9966Mluuqtn glucose Estimated from glycated hemoglobin (Bld) [Mass/Vol]97 mg/dLPremier Health Miami Valley Hospital SouthHematocrit Auto (Bld) [Volume fraction]Ordered By: Julieta Jefferson on 42-72-1586Dkwvguvstv (Bld) [Volume fraction]26.0 %34.0-46.4FMercy Health Springfield Regional Medical CenterHemoglobin A1c percentageOrdered By: Julieta Jefferson on 82-61-4756JgS1x (Bld) [Mass fraction]5.0 % 4.3-5.6FMercy Health Springfield Regional Medical CenterComment on above:Increased risk for diabetes: 5.7 - 6.4diabetes: >6.4glycemic control for adults with diabetes: &l t;7.0Hemoglobin [Mass/volume] in BloodOrdered By: Julieta Jefferson on 06-09-2022 Hemoglobin (Bld) [Mass/Vol]7.8 g/dL11.8-15.4FMercy Health [facility] Center Hypochromia LM Ql (Bld)Ordered By: Julieta Jefferson on 63-95-5260Goxrvpyqzsf Ql (Bld) ModeratePremier Health Miami Valley Hospital SouthLeukocytes [#/volume] corrected for nucleated erythrocytes in Blood by Automated counOrdered By: Julieta Jefferson on 02-38-9552BGJ corrected for nucl RBC Auto (Bld) [#/Vol]4.6 10*3/uL3.8-11.6 [facility] SouthLymphocytes Auto (Bld) [#/Vol]Ordered By: Julieta Jefferson on 68-29-1895Brvobvxfdzg (Bld) [#/Vol]2.0 10*3/uL1.00-4.8[facility] SouthLymphocytes/100 WBC Auto (Bld)Ordered By: Julieta Jefferson on 75-00-4221Ydxuonxlsmj/100 WBC (Bld)44.2 %.[facility] SouthMCH Auto (RBC) [Entitic mass]Ordered By: Julieta Jefferson on 61-50-9412DMT (RBC) [Entitic mass]19.7 pg24.7-34.3FMercy Health Springfield Regional Medical CenterMCHC Auto (RBC) [Mass/Vol]Ordered By: Julieta Jefferson on 27-86-2431QCHM (RBC) [Mass/Vol]30.2 g/dL 32.0-35.0[facility] SouthMCV Auto (RBC) [Entitic vol]Ordered By: Julieta Jefferson on 65-38-4425UZL (RBC) [Entitic vol]65.3 xB60-428SxlgdgcgtPremier Health Miami Valley Hospital SouthMicrocytes LM Ql (Bld)Ordered By: Julieta Jefferson on 62-01-8638Zqxtlpdthc Ql (Bld)MarkedPremier Health Miami [facility] Hospital SouthMonocytes Auto (Bld) [#/Vol]Ordered By: Juileta Jefferson on 79-14-6675Fqwsowoba (Bld) [#/Vol] 0.4 10*3/uL0.0-0.8[facility] SouthMonocytes/100 WBC Auto (Bld) Ordered By: Julieta Jefferson on 65-20-4509Egiiqrgei/100 WBC (Bld)8.9 %.[facility] SouthNeutrophils Auto (Bld) [#/Vol]Ordered By: Julieta Jefferson on 62-21-5773Sougmzcvosj (Bld) [#/Vol]1.8 10*3/uL1.8-7.7FMercy Health Springfield Regional Medical CenterNeutrophils/100 WBC Auto (Bld)Ordered By: Julieta Jefferson on 06-09-2022 Neutrophils/100 WBC (Bld)38.7 %.[facility] SouthNo Panel InformationOrdered By: Julieta Jefferson on 21-62-2665Qwgnywosi GFR () > 60 mL/MinPremier Health Miami Valley Hospital SouthComment on above:GFR estimated reference range: According to KDOQI guidelines, <60 ml/min/1.73m2 is sufficient todiagnose a patient with chronic kidney disease.Pharmacy Creatinine Clearance (ChemN/[facility] HospitalNucleated erythrocytes [Presence] in Blood by Automated countOrdered By: Julieta Jefferson on 23-85-7432Adqewkwkw RBC Auto Ql (Bld)0.1 /100{WBC}0-0.5FMercy Health Springfield Regional Medical CenterPlatelet adequacy [Presence] in Blood by Light microscopyOrdered By: Julieta Jefferson on 06-09-2022 Platelets LM Ql (Bld)NormalToledo HospitalPlatelet mean volume Auto (Bld) [Entitic vol]Ordered By: Julieta Jefferson on 47-39-6824Uzdhensk mean volume (Bld) [Entitic vol]8.2 fL6.3-10.7FMercy Health [facility] Medical Center Platelet morphology finding [Identifier] in BloodOrdered By: Julieta Jefferson on 31-71-8055Dhwomepa morphology finding Nom (Bld)NormalNoMercy Health Kings Mills HospitalPlatelets Auto (Bld) [#/Vol]Ordered By: Julieta Jefferson on 06-09-2022 Platelets (Bld) [#/Vol]200 10*3/oT347-459RylmpvsrcPremier Health [facility] South Poikilocytosis [Presence] in Blood by Light microscopyOrdered By: Julieta Jefferson on 74-30-6719Kjdwkyrhnxytzt LM Ql (Bld)[facility] Polychromasia [Presence] in Blood by Light microscopyOrdered By: Julieta Jefferson on 97-06-5435Vjwmacixfqmwi LM Ql (Bld)ModeratePremier Health Miami [facility] Hospital South Protein [Mass/volume] in Serum or PlasmaOrdered By: Julieta Jefferson on 06-09-2022 Protein [Mass/Vol]6.4 g/dL6.1-7.9[facility] SouthRB Auto (Bld) [#/Vol]Ordered By: Julieta Jefferson on 96-65-0609MJQ (Bld) [#/Vol]3.97 10*6/uL 3.60-5.00[facility] SouthRB morphologyOrdered By: Julieta Jefferson on 02-23-9976ISV morphology finding Nom (Bld)N/AFSt. Francis Hospitalchistocytes [Presence] in Blood by Light microscopyOrdered By: Julieta Jefferson on 42-98-9186Cqkcsowxstax LM Ql (Bld)[facility] Centererum or plasma alanine aminotransferase measurement without P-5'-P (enzymatic activiOrdered By: Julieta Jefferson on 83-09-1206MLX No additional P-5'-P [Catalytic activity/Vol]14 U/S25-98BpquhvmevParkview Health Montpelier Hospitalerum or plasma albumin/globulin mass ratioOrdered By: Julieta Jefferson on 06-09-2022 Albumin/Globulin [Mass ratio]1.8 {ratio}[facility] Hospitalerum or plasma anion gap determinationOrdered By: Julieta Jefferson on 84-48-2323Hcfjs gap [Moles/Vol]11.5 mmol/L6.0-15.0[facility] Hospitalerum or plasma calcitriol measurement (mass/volume)Ordered By: Julieta Jefferson on ,25- dihydroxyvitamin D3 [Mass/Vol]60.5 pg/mL24.8-81.5FMercy Health Springfield Regional Medical CenterComment on above:Performed at: - Lab[address] [id number] Director: Jon Horton MD, Phone: [phone] or plasma chloride measurement (moles/volume)Ordered By: Julieta Jefferson on 64-30-1980Gnxwuzvi [Moles/Vol]106 mmol/E68-543PgggqrkiaPremier Health [facility] Hospital South Serum or plasma glucose measurement (mass/volume)Ordered By: Julieta Jefferson on 11-94-3199Nnexyhc [Mass/Vol]78 mg/yL55-842WkjlwuxgaPremier Health [facility] South Comment on above:ADA recommended reference rangeRandom Glucose Reference Range is dependent on time and content of last meal. Glucose of more than 200 mg/dL in a nonstressed, ambulatory subject supports the diagnosisof Diabetes Mellitus. Serum or plasma high density lipoprotein (HDL) cholesterol measurementOrdered By: Julieta Jefferson on 95-01-5517Unvfgnrqoxa in HDL [Mass/Vol]56 mg/dN76-51MncrlvkfqPremier Health Miami [facility] Hospital SouthComment on above:HDL CHOL ATP-III CLASSIFICATION Cardiovascular RiskHDL > or equal to 60 mg/dL LOWHDL < 40 mg/dL HIGHSerum or plasma potassium measurement (moles/volume)Ordered By: Julieta Jefferson on 06-09-2022 Potassium [Moles/Vol]3.8 mmol/L3.5-5.1FSt. Francis Hospitalerum or plasma sodium measurement (moles/volume)Ordered By: Julieta Jefferson on 06-09-2022 Sodium [Moles/Vol]137 mmol/U052-700GacwyqhmkParkview Health Montpelier Hospitalerum or plasma total bilirubin measurement (mass/volume)Ordered By: Julieta Jefferson on 06-41-1797Pezetakud [Mass/Vol]0.3 mg/dL0.3-1.2FMercy Health Springfield [facility] Medical Center Serum or plasma total cholesterol/high density lipoprotein (HDL) cholesterol mass ratOrdered By: Julieta Jefferson on 24-77-1031Mspvehvjcco.total/Cholesterol in HDL [Mass ratio]2.4 {ratio}<5.0[facility] <= 0.005 mIU/L QnOrdered By: Julieta Jefferson on 56-46-8728XMV Qn4.10 m[IU]/L0.45-5.33 [facility] SouthTeardrop cell detectionOrdered By: Julieta Jefferson on 79-01-9604Usatoxfdzc LM Ql (Bld)SlightPremier Health Miami [facility] Hospital South Triglyceride [Mass/volume] in Serum or PlasmaOrdered By: Julieta Jefferson on 28-97-1667Bhqgxgzpdvyx [Mass/Vol]45 mg/gS02-696WalxjwcdhPremier Health [facility] South Comment on above:TRIG ATP III CLASSIFICATIONTRIG less than 150 mg/dL NormalTRIG 150-199 mg/dL Borderline highTRIG 200-500 mg/dL High TRIG greater than 500 mg/dL Very highStandard traceable to the Center for Disease Conrtrol and Prevention (CDC) test method.Urea nitrogen [Mass/volume] in Serum or PlasmaOrdered By: Julieta Jefferson on 10-23-4011Svrk nitrogen [Mass/Vol]6 mg/dL9-[facility] SouthWBC Auto (Bld) [#/Vol]Ordered By: Julieta Li on 89-18-3964TWQ (Bld) [#/Vol]4.6 10*3/uL3.8-11.6FMercy Health Springfield Regional Medical CenterUrine 10 SGon 84-39-5573Odhbcmh DL <= 20 mg/L (U) [Mass/Vol]NegativeNortRevel Systems Other pH (U)7.0 [pH][employer] Other urine 10 SGNegativeRotten Tomatoes Other Urine 10 SG1.020NoRotten Tomatoes Other urine 10 SGlargeNoRotten Tomatoes Other Urine Cultureon 87-08-9864Ostwlfxx identified Cx Nom (U)[employer] Other urine culture routineOrdered By: Amanda Ford on 64-64-5338Qdiyhpxo identified Cx Nom (U)2 DaysPremier Health [facility] Hospital SouthActivated partial thromboplastin time (aPTT) in platelet poor plasma by coagulation aOrdered By: Phu Hdz on 12-09-4990aNCX Coag (PPP) [Time] 30.4 s25.1-36.5FMercy Health Springfield Regional Medical CenterAutomated erythrocytes count in urine sediment (number/area)Ordered By: Jean Jett on 60-03-8633DFD Auto (Urine sed) [#/Area]Innumerable [HPF]0-4FMercy Health [facility] Center Automated leukocytes count in urine sediment (number/area)Ordered By: Jean Jett on 58-28-7599TFI Auto (Urine sed) [#/Area]3-4 [HPF]0-4FMercy Health Springfield Regional Medical CenterAutomated urine sediment calcium oxalate crystal count by microscopy (number/high powOrdered By: Jean Jett on 28-86-1628Xjfzwqg oxalate crystals LM.HPF (Urine sed) [#/Area]1+ [HPF][facility] Basophils Auto (Bld) [#/Vol]Ordered By: Jean Jett on 54-98-1153Nkltudpxc (Bld) [#/Vol]0.0 10*3/uL0.0-0.2FMercy Health Springfield Regional Medical CenterBasophils/100 WBC Auto (Bld)Ordered By: Jean Jett on 81-03-9683Cyicwvqju/100 WBC (Bld)0.5 % .[facility] SouthBilirubin Test strip Ql (U)Ordered By: Jean Jett on 51-02-6316Hkmuujnhi Ql (U)1+NegativePremier Health [facility] Hospital South Casts typing in urine sediment by light microscopyOrdered By: Jean Jett on 39-40-1642Dymnm LM Nom (Urine sed)None seen [LPF]None SeenPremier Health Miami Valley Hospital SouthColor Auto (U)Ordered By: Jean Jett on 23-63-8810Eylch (U)Red YellowPremier Health Miami [facility] Hospital SouthCreatinine and Glomerular filtration rate.predicted panel (S/P/Bld)Ordered By: Jean Jett on 88-51-3998Lnhreusqjw [Mass/Vol]0.68 mg/dL0.44-1.03[facility] SouthEosinophils Auto (Bld) [#/Vol]Ordered By: Jean Jett on 27-84-4461Fqtzgseibyg (Bld) [#/Vol]0.2 10*3/uL0.0-0.45[facility] SouthEosinophils/100 WBC Auto (Bld) Ordered By: Jean Jett on 10-69-7573Uvuutbphejb/100 WBC (Bld)2.1 %.[facility] SouthErythrocyte distribution width Auto (RBC) [Ratio]Ordered By: Jean Jett on 59-74-5512Ibotuurskyj distribution width (RBC) [Ratio]14.3 % 11.9-15.3FMercy Health Springfield Regional Medical CenterEstimated glomerular filtration rate (GFR) non- AmericanOrdered By: Jean Jett on 35-30-5622XPD/1.73 sq M.predicted among non-blacks MDRD (S/P/Bld) [Vol rate/Area]> 60 mL/MinPremier Health Miami Valley Hospital SouthHCG ( test) IA.rapid Ql (U)Ordered By: Jean Jett on 53-01-4038MUT ( test) Ql (U)NegativePremier Health Miami Valley Hospital SouthHematocrit Auto (Bld) [Volume fraction]Ordered By: Jean Jett on 55-06-9977Fogtdxerxw (Bld) [Volume fraction]29.4 %34.0-46.4FMercy Health Springfield Regional Medical CenterHemoglobin [Mass/volume] in BloodOrdered By: Jean Jett on 81-67-0849Imeddqmdiz (Bld) [Mass/Vol]9.9 g/dL11.8-15.4FMercy Health Springfield Regional Medical CenterKetones Auto test strip (U) [Mass/Vol]Ordered By: Jean Jett on 74-99-4156Urrvdhd (U) [Mass/Vol]NegativeNegativePremier Health Miami [facility] Hospital SouthLaboratory - CoagulationOrdered By: Phu Hdz on 54-28-6662QO Coag (PPP) [Time]12.4 s9.0-12.9[facility] SouthLaboratory - UrinalysisOrdered By: Jean Jett on 71-93-5495Uyitnri casts LM Ql (Urine sed) None seen [LPF]0-8[facility] SouthLeukocytes [#/volume] corrected for nucleated erythrocytes in Blood by Automated counOrdered By: Jean Jett on 02-30-7795MDA corrected for nucl RBC Auto (Bld) [#/Vol]8.5 10*3/uL3.8-11.6FMercy Health Springfield Regional Medical CenterLymphocytes Auto (Bld) [#/Vol] Ordered By: Jean Jett on 86-18-8886Cwnfweadxrv (Bld) [#/Vol]2.1 10*3/uL 1.00-4.8[facility] SouthLymphocytes/100 WBC Auto (Bld)Ordered By: Jean Jett on 03-30-6504Gedgqoatqfj/100 WBC (Bld)25.2 %.[facility] HospitalH Auto (RBC) [Entitic mass]Ordered By: Jean Jett on 09-73-5654XAL (RBC) [Entitic mass]28.8 pg24.7-34.3FMercy Health Springfield Regional Medical CenterMCHC Auto (RBC) [Mass/Vol]Ordered By: Jean Jett on 63-91-0847HPFY (RBC) [Mass/Vol]33.6 g/dL32.0-35.0[facility] SouthMCV Auto (RBC) [Entitic vol]Ordered By: Jean Jett on 67-82-7496GAD (RBC) [Entitic vol]85.7 oC49-815YsyfyyeplPremier Health Miami Valley Hospital SouthMonocyte distribution width [Entitic volume] in Blood by AutomatedOrdered By: Jean Jett on 92-84-1608Yqmdjlch distribution width Auto (Bld) [Entitic vol]14.20 %0.00-20.00[facility] SouthMonocytes Auto (Bld) [#/Vol]Ordered By: Jean Jett on 04-10-2022 Monocytes (Bld) [#/Vol]0.5 10*3/uL0.0-0.8[facility] Monocytes/100 WBC Auto (Bld)Ordered By: Jean Jett on 34-00-9544Hghggtiao/100 WBC (Bld)5.7 %.[facility] SouthNeutrophils Auto (Bld) [#/Vol] Ordered By: Jean Jett on 07-29-1344Ckgmehcopdi (Bld) [#/Vol]5.6 10*3/uL 1.8-7.7FMercy Health Springfield Regional Medical CenterNeutrophils/100 WBC Auto (Bld)Ordered By: Jean Jett on 39-50-7391Gbnbprhahdq/100 WBC (Bld)66.5 %.[facility] SouthNitrite Test strip Ql (U)Ordered By: Jean Jett on 04-10-2022 Nitrite Ql (U)PositiveNegativePremier Health Miami Valley Hospital SouthNo Panel InformationOrdered By: Jean Jett on 94-70-2339Sydjxlugu GFR ()> 60 mL/MinPremier Health Miami Valley Hospital SouthComment on above:GFR estimated reference range: According to KDOQI guidelines, <60 ml/min/1.73m2 is sufficient todiagnose a patient with chronic kidney disease.Pharmacy Creatinine Clearance (Eauc260.39[facility] SouthNucleated erythrocytes [Presence] in Blood by Automated countOrdered By: Jean Jett on 04-10-2022 Nucleated RBC Auto Ql (Bld)0.0 /100{WBC}0-0.5FMercy Health [facility] Center Platelet mean volume Auto (Bld) [Entitic vol]Ordered By: Jean Jett on 68-08-0255Qxcdbzgm mean volume (Bld) [Entitic vol]6.9 fL6.3-10.7FMercy Health Springfield Regional Medical CenterPlatelet poor plasma international normalized ratio (INR) by coagulation assay (relatOrdered By: Phu Hdz on 02-72-2836CKZ Coag (PPP) [Relative time]1.1 {INR}[facility] SouthComment on above: INR Therapeutic Range A) Pre- [...] Auto (Bld) [#/Vol]Ordered By: Jean Jett on 52-78-6985Cqhvgvdkb (Bld) [#/Vol]263 10*3/eT257-846TilafgkacPremier Health [facility] Hospital SouthProtein Auto test strip (U) [Mass/Vol]Ordered By: Jean Jett on 09-75-8900Tkunifb (U) [Mass/Vol]100 mg/dLNegativePremier Health Miami [facility] Hospital SouthRBC Auto (Bld) [#/Vol]Ordered By: Jean Jett on 86-33-1409KWM (Bld) [#/Vol]3.43 10*6/uL 3.60-5.00[facility] Hospitalerum or plasma anion gap determinationOrdered By: Jean Jett on 34-76-1078Krvfn gap [Moles/Vol]8.5 mmol/L6.0-15.0Park[facility] Hospitalerum or plasma calcium measurement (mass/volume)Ordered By: Jean Jett on 32-72-8782Bcfxhrr [Mass/Vol]8.6 mg/dL8.2-10.2FSt. Francis Hospitalerum or plasma chloride measurement (moles/volume)Ordered By: Jean Jett on 04-10-2022 Chloride [Moles/Vol]106 mmol/A04-645CnzbhhymcParkview Health Montpelier Hospitalerum or plasma glucose measurement (mass/volume)Ordered By: Jean Jett on 04-10-2022 Glucose [Mass/Vol]99 mg/bA83-119TmgkqxmbtPremier Health Miami [facility] Hospital SouthComment on above:ADA recommended reference rangeRandom Glucose Reference Range is dependent on time and content of last meal. Glucose of more than 200 mg/dL in a nonstressed, ambulatory subject supports the diagnosisof Diabetes Mellitus.Serum or plasma potassium measurement (moles/volume)Ordered By: Jean Jett on 70-67-2423Aloowxgml [Moles/Vol]3.6 mmol/L3.5-5.1FSt. Francis Hospitalerum or plasma sodium measurement (moles/volume)Ordered By: Jean Jett on 08-89-5616Uzpwvd [Moles/Vol]138 mmol/Y091-727HbvrrkkdhParkview Health Montpelier Hospitalerum or plasma total carbon dioxide measurement (moles/volume)Ordered By: Jean Jett on 86-45-9583FZ7 [Moles/Vol]27.1 mmol/L22.0-30.0[facility] Hospitalerum or plasma urea nitrogen measurement (mass/volume)Ordered By: Jean Jett on 92-50-0336Yonc nitrogen [Mass/Vol]5 mg/dL9-23Park[facility] Mont[facility]ier Hospitalpecific gravity Auto test strip (U) [Rel density]Ordered By: Jean Jett on 35-10-1589Skazvqls gravity (U) [Rel density]1.0331.001-1.030 [facility]ier Hospitalquamous epithelial cells detection in urine sediment by light microscopyOrdered By: Jean Jett on 57-23-4250Fnxqfieedi cells.squamous LM Ql (Urine sed)3-4 [HPF]0-2FMercy Health [facility] Center Urine bacteria detection by automated methodOrdered By: Jean Jett on 92-79-0319Rvxaamyl Auto Ql (U)None seenNone SeenPremier Health Miami [facility] Hospital SouthUrine clarity by refractometry automatedOrdered By: Jean Jett on 19-23-1378Zmkfjbd Refractometry automated (U)TurbidClearFMercy Health Springfield Regional Medical CenterUrine culture routineOrdered By: Jean Jett on 04-10-2022 Bacteria identified Cx Nom (U)2 DaysPremier Health [facility] Hospital SouthUrine glucose measurement by automated test strip (mass/volume)Ordered By: Jean Jett on 69-89-6283Zhzrbyn Auto test strip (U) [Mass/Vol]Normal mg/dLMorrow County HospitalUrine hemoglobin detection by automated test stripOrdered By: Jean Jett on 79-59-7143Bnahcfdxbd Auto test strip Ql (U)3+ NegativePremier Health Miami [facility] Hospital SouthUrine leukocyte esterase detection by automated test stripOrdered By: Jean Jett on 94-02-4097Bohbafzag esterase Auto test strip Ql (U)2+NegativePremier Health [facility] Hospital SouthUrine sediment crystal identification by light microscopyOrdered By: Jean Jett on 04-10-2022 Crystals LM Nom (Urine sed)None seen [HPF][facility] Urobilinogen Auto test strip (U) [Mass/Vol]Ordered By: Jean Jett on 32-89-2140Eipofgynkqyr (U) [Mass/Vol]Normal mg/dLToledo HospitalWBC Auto (Bld) [#/Vol]Ordered By: Jean Jett on 84-19-3138GSH (Bld) [#/Vol]8.5 10*3/uL3.8-11.6FMercy Health Springfield Regional Medical CenterpH Auto test strip (U)Ordered By: Jean Jett on 12-61-3730sX (U)5.5 [pH]5.0-9.0[facility] SouthBasophils Auto (Bld) [#/Vol]Ordered By: PROVIDER TEMP on 49-35-9762Ezkhwqfks (Bld) [#/Vol]0.0 10*3/uL0.0-0.2FMercy Health Springfield Regional Medical CenterBasophils/100 WBC Auto (Bld)Ordered By: PROVIDER TEMP on 04-08-2022 Basophils/100 WBC (Bld)0.4 %.[facility] SouthEosinophils Auto (Bld) [#/Vol]Ordered By: PROVIDER TEMP on 43-21-8774Bmmtibuqzoi (Bld) [#/Vol]0.4 10*3/uL0.0-0.45[facility] SouthEosinophils/100 WBC Auto (Bld) Ordered By: PROVIDER TEMP on 56-31-6516Tylxzatbnlt/100 WBC (Bld)5.5 %.[facility] SouthErythrocyte distribution width Auto (RBC) [Ratio]Ordered By: PROVIDER TEMP on 60-49-0919Rlwlwlieoux distribution width (RBC) [Ratio]14.1 %11.9-15.3FMercy Health Springfield Regional Medical CenterHematocrit Auto (Bld) [Volume fraction]Ordered By: PROVIDER TEMP on 20-90-0500Tlbpbnsylj (Bld) [Volume fraction]33.9 %34.0-46.4FMercy Health Springfield Regional Medical CenterHemoglobin [Mass/volume] in BloodOrdered By: PROVIDER TEMP on 88-96-0047Cysoadqsev (Bld) [Mass/Vol]11.4 g/dL11.8-15.4FMercy Health Springfield Regional Medical CenterLeukocytes [#/volume] corrected for nucleated erythrocytes in Blood by Automated coun Ordered By: PROVIDER TEMP on 21-85-7988GXU corrected for nucl RBC Auto (Bld) [#/Vol]8.1 10*3/uL3.8-11.6FMercy Health Springfield Regional Medical CenterLymphocytes Auto (Bld) [#/Vol]Ordered By: PROVIDER TEMP on 05-76-3718Xiktysecvbg (Bld) [#/Vol]2.3 10*3/uL1.00-4.8[facility] SouthLymphocytes/100 WBC Auto (Bld) Ordered By: PROVIDER TEMP on 54-17-1489Pnzbapilrek/100 WBC (Bld)28.1 %.Premier [facility] SouthMCH Auto (RBC) [Entitic mass]Ordered By: PROVIDER TEMP on 79-58-2043VRT (RBC) [Entitic mass]29.0 pg24.7-34.3FMercy Health Springfield Regional Medical CenterMCHC Auto (RBC) [Mass/Vol]Ordered By: PROVIDER TEMP on 63-36-2217CIPD (RBC) [Mass/Vol]33.7 g/dL32.0-35.0[facility] SouthMCV Auto (RBC) [Entitic vol]Ordered By: PROVIDER TEMP on 47-01-4233BRK (RBC) [Entitic vol]86.0 mC81-782SnbmutotbPremier Health [facility] SouthMonocyte distribution width [Entitic volume] in Blood by AutomatedOrdered By: PROVIDER TEMP on 04-08-2022 Monocyte distribution width Auto (Bld) [Entitic vol]13.83 %0.00-20.00[facility] SouthMonocytes Auto (Bld) [#/Vol]Ordered By: PROVIDER TEMP on 92-08-1952Gfcvpxfky (Bld) [#/Vol]0.5 10*3/uL0.0-0.8[facility] SouthMonocytes/100 WBC Auto (Bld)Ordered By: PROVIDER TEMP on 04-08-2022 Monocytes/100 WBC (Bld)6.7 %.[facility] SouthNeutrophils Auto (Bld) [#/Vol]Ordered By: PROVIDER TEMP on 66-02-8273Pkzhqhjopcn (Bld) [#/Vol]4.8 10*3/uL1.8-7.7FMercy Health Springfield Regional Medical CenterNeutrophils/100 WBC Auto (Bld) Ordered By: PROVIDER TEMP on 62-91-9734Ykbenprside/100 WBC (Bld)59.3 %.[facility] SouthNucleated erythrocytes [Presence] in Blood by Automated countOrdered By: PROVIDER TEMP on 44-57-9617Axhpncneq RBC Auto Ql (Bld)0.2 /100{WBC}0-0.5FMercy Health Springfield Regional Medical CenterPlatelet mean volume Auto (Bld) [Entitic vol]Ordered By: PROVIDER TEMP on 89-21-3667Uqzzfqbc mean volume (Bld) [Entitic vol]7.0 fL6.3-10.7FMercy Health Springfield Regional Medical CenterPlatelets Auto (Bld) [#/Vol]Ordered By: PROVIDER TEMP on 93-67-2033Bqpgoggar (Bld) [#/Vol]199 10*3/uL 150-450[facility] SouthRBC Auto (Bld) [#/Vol]Ordered By: PROVIDER TEMP on 21-98-7474HGS (Bld) [#/Vol]3.94 10*6/uL3.60-5.00[facility] SouthWBC Auto (Bld) [#/Vol]Ordered By: PROVIDER TEMP on 95-86-1699XKN (Bld) [#/Vol]8.1 10*3/uL3.8-11.6FMercy Health Springfield Regional Medical Center XR shoulder RT min 2V*on 88-76-5066LV shoulder RT min 2V*[facility] [employer] Other XR shoulder RT min 2V*[facility] [employer] Other XR shoulder RT min 2V*[address] [place] [address] [employer] Other XR shoulder RT min 2V*[place] [address] [employer] Other XR shoulder RT min 2V*[facility] [employer] Other XR shoulder RT min 2V*[facility] [employer] Other XR shoulder RT min 2V*Patient: Jaz Sanders MR#: [id number] [employer] Other XR shoulder RT min 2V*[address] [employer] Other XR shoulder RT min 2V*: 1995 Acct:[id number] [place] [employer] Other XR shoulder RT min 2V*Age/Sex: 27 / F ADM Date: 03/23/22[place] [employer] Other XR shoulder RT min 2V*[facility] Room: Type: [facility] [employer] Other XR shoulder RT min 2V*Attending Dr: Amanda Ford APRN, [facility] Ave[employer]in Other XR shoulder RT min 2V*Copies to: Amanda Ford APRN, [facility] [employer] Other XR shoulder RT min 2V*Ordering Provider: Amanda Ford APRN, [facility] [employer] Other XR shoulder RT min 2V*Date of Service: 03/23/22[place] [employer] Other XR shoulder RT min 2V* XR/XR shoulder RT min 2V*: Other chronic pain;Pain in right shoulderWaverly [employer] Other XR shoulder RT min 2V*RIGHT SHOULDER - - 3 viewsWaverly [employer] Other XR shoulder RT min 2V*CLINICAL HISTORY: Pain lateral to right shoulder for 6 months.[employer] Other XR shoulder RT min 2V*COMPARISON: [facility] [employer] Other XR shoulder RT min 2V*FINDINGS:[employer] Other XR shoulder RT min 2V*Minimal degenerative changes of the right AC joint. Glenohumeral joint is grossly unremarkable. [facility] Avexxin Other XR shoulder RT min 2V*acute bony process.[place] [employer] Other XR shoulder RT min 2V* XR/XR shoulder RT min 2V*[employer] Other XR shoulder RT min 2V*IMPRESSION:[employer] Other XR shoulder RT min 2V*MINIMAL DEGENERATIVE CHANGES. NO ACUTE BONY PROCESS.[employer] Other XR shoulder RT min 2V*Impression dictated by: Sravan Dickinson Jr., D.O.03/23/2022 4:06 [facility] [employer] Other xr shoulder RT min 2V*Dictation Location: [address] Avexxin Other xr shoulder RT min 2V*Transcribed By: [facility] 03/23/[address] [place] [address] [employer] Other xr shoulder RT min 2V*Dictated By: Sravan Dickinson Jr, DO 03/23/[address] [place] [address] [employer] Other xr shoulder RT min 2V*Signed By:[employer] Other xr shoulder RT min 2V*03/23/[address] [place] [address] [employer] Other Coding Summary.on 73-50-9948Xytsyl Summary. CD:[id number]+PGhlYWQ+AE6OQOMbN69msUYgpL4CK4uGYP7ZNQJJXMJHIB2CBJ2eu MW9BDpmO8DlodQq [file] cHNl (more content not included)...[facility] HealthHeart and Vascular Office/Clinic Noteon 88-29-8879Burhh and Vascular Office/Clinic Note Chief Complaint Testing [...] after patient or guardian consented to allow [employer] e[employer]ience to record this visit. ANAMARIA adult specialist and provider reviewed before signing. ANAMARIA: [...] History Bipolar: Sister. Depression: Mother and Grandparent.Premier HealthComment on above:Result Comment: Electronically Signed By: Jay DAVEY, Samir Rivera\.br\Date and Time Signed: 09/02/21 09:25 EDT\.br\Electronically Co-Signed By: Rissa Arias\.br\Date and Time Co-Signed: 09/01/21 17:11 EDTCoding Summary.on 64-70-2321Uefbjf Summary. CD:[id number]:[id number]+PGhlYWQ+RK7SHKSsY52rbBUqkC3YG6mFKK2HZDWXAFSJIS7ORA7et LN8MAeoU1AdzoTg [file] cHNl (more content not included)...NormalWvumedicine Barnesville HospitalConsent for Treatmenton 02-76-2874Mdflvaj for Treatment [id number]#1.00CD:127NormCleveland Clinic Hillcrest HospitalProgress Note-Physicianon 24-99-4394Smkkdshl Note-Physician [id number]#1.00CD:127NormCleveland Clinic Hillcrest HospitalHolter Monitoron 59-41-8982Ljkdhb Ouqqkkc59-TPDN HOLTER MONITOR ORDERING PHYSICIAN: Samir Christofferson, M.D. [...] READ BY: Mariam Salazar M.D. Dictated: 08/26/2021 [id number] Transcribed: 08/27/2021 cc:Samir Thompson M.D.Premier HealthComment on above: Result Comment: Electronically Signed By: Martin DAVEY, Mariam Galan\.br\Date and Time Signed: 08/27/21 10:21 EDTHolter Monitor [id number]#1.00CD:127NoMercy Health Fairfield HospitalConsent for Treatmenton 58-73-0655Qfqlvor for Treatment [id number]#1.00CD:127NoMercy Health Fairfield HospitalCoding Summary.on 72-16-3228Qjfkww Summary. CD:[id number]:[id number]+PGhlYWQ+UV4DLSQfN16qoBYnnL9TE3oYDB0JYPHPKQDUZV3OVY0ws XI1MSsmF5PruxXe [file] cHNl (more content not included)...NormalCleveland Clinic Union Hospitaltre EKG Tracingson 47-63-9768Nxedal EKG Tracings [id number]#1.00CD:127Premier HealthConsent for Treatmenton 57-34-7496Wwogcxs for Treatment [id number]#1.00CD:127Premier HealthCoding Summary.on 47-08-7567Vsxguq Summary. CD:[id number]:[id number]+PGhlYWQ+ZR6BNADnS52xcBJvsA7UG0dGUR3VWQHYZLYJEF4XTU4zr MH2GQxmO8TzjmWy [file] cHNl (more content not included)...Premier HealthProgress Note-Physicianon 01-38-9764Jcgkftqi Note-Physician [id number]#1.00CD:127NormCleveland Clinic Hillcrest HospitalHeart and Vascular Office/Clinic Noteon 17-98-7632Jismx and Vascular Office/Clinic NoteChief Complaint Bradycardia History [...] after patient or guardian consented to allow [employer] to record this visit. ANAMARIA adult specialist and provider reviewed before signing. ANAMARIA: [...] Use:. Never [place] (more content not included)...Premier HealthComment on above:Result Comment: Electronically Signed By: Samir Thompson MD\.br\Date and Time Signed: 07/27/21 10:44 EDT\.br\Electronically Co-Signed By: Rissa Arias\.br\Date and Time Co-Signed: 07/24/21 16:24 EDTConsent for Treatmenton 40-01-7251Vlpxlac for [id number]#1.00CD:[address] [place], [place] [address]Referrals Officeon 34-37-3433Zigqucwkn Office [id number]#1.00CD:127Premier HealthBASIC METABOLIC PANELon 13-65-3244Mrtmk gap [Moles/Vol]8 mmol/LLow9 - 17 mmol/LMcleveland clinic mercy hospitaly Health- [place], KYBun/Cre RatioNOT REPORTEDMer Health- [place], KYCalcium [Mass/Vol]9.2 mg/dL8.6 - 10.4 mg/dLMercy Health- [place], KYChloride [Moles/Vol]105 mmol/L98 - 107 mmol/LMercy Health- [place], KYCO2 [Moles/Vol]26 mmol/L20 - 31 mmol/L [facility]- [place], KYCreatinine [Mass/Vol]0.67 mg/dL0.5 - 0.9 mg/dLMercy Health- [place], KYGFR >60>60 mL/minMercy Health- [place], KYGFR Non->60>60 mL/minMercy Health- [place], KYGFR/1.73 sq M predicted among non- blacks MDRD (S/P/Bld) [Vol rate/Area]NOT REPORTEDMercy Health- [place], KYGFR/1.73 sq M predicted among non-blacks MDRD (S/P/Bld) [Vol rate/Area][facility]- [place] Comment on above:Average GFR for 20-29 years old: 116 mL/min/1.73sq m Chronic Kidney Disease: <60 mL/min/1.73sq m Kidney failure: <15 mL/min/1.73sq m eGFR calculated using average adult body mass. Additional eGFR calculator available at: http://www.[employer]/multiple_crcl_2012.htm Glucose [Mass/Vol]99 mg/dL70 - 99 mg/dLBerger Hospital, KYInterpretation and review of laboratory resultsAbnormalBerger Hospital, KYPotassium [Moles/Vol]4.5 mmol/L3.7 - 5.3 mmol/LMGalion Community Hospital, KYSodium [Moles/Vol]139 mmol/L135 - 144 mmol/[facility], KYUrea nitrogen [Mass/Vol]5 mg/dLLow6 - 20 mg/dLBerger Hospital, KYBasic Metabolic Profon 05-08-2020(cont.)[facility] Health SystemComment on above:Result Comment: Average GFR for 20-29 years old: 116 mL/min/1.73sq m Chronic Kidney Disease: <60 mL/min/1.73sq m Kidney failure: <15 mL/min/1.73sq m eGFR calculated using average adult body mass. Additional eGFR calculator available at: http://www.[employer]/multiple_crcl_2012.htmPerformed By: #### CBC, PT, PTT, BMP #### [employer] [address] [place] [address] [phone] Tug Master: Casey Marques MD #### RICKYT #### [facility] [address] [place] [address] Tug Master: Dontae Ward gap [Moles/Vol]8 mmol/LLow9-17Ohiohealth Shelby HospitalComment on above:Performed By: #### CBC, PT, PTT, BMP #### [facility] [address] [place] [address] Tug Master: Casey Marques MD #### ANICOT #### [facility] [address] [place] [address] Tug Master: XIN Wardalcium [Mass/Vol]9.2 mg/dLNormal8.6-10.4Ohiohealth Shelby HospitalComment on above:Performed By: #### CBC, PT, PTT, BMP #### [facility] [address] [place] [address] [phone] Tug Master: Casey Marques MD #### ANICOT #### [facility] [address] [place] [address] [phone] Tug Master: XIN Wardhloride [Moles/Vol]105 mmol/UDttbjl58-605BppyfOhiohealth Shelby HospitalComment on above:Performed By: #### CBC, PT, PTT, BMP #### [address] [phone] Tug Master: Casey Marques MD #### ANICOT #### [facility] [address] [place] [address] [phone] Tug Master: XIN WardO2 [Moles/Vol]26 mmol/LZquudg31-99UpfzvOhiohealth Shelby HospitalComment on above:Performed By: #### CBC, PT, PTT, BMP #### [address] [phone] Tug Master: Casey Marques MD #### ANICOT #### [facility] [address] [place] [address] Tug Master: XIN Wardreatinine [Mass/Vol]0.67 mg/dLNormal0.50-0.90 [facility] Shelby HospitalComment on above:Performed By: #### CBC, PT, PTT, BMP #### [facility] [address] [place] [address] [phone] Tug Master: Casey Marques MD #### ANICOT #### [facility] [address] [place] [address] Tug Master: Adolph Diaz MDGFR, Amer>60Normal>60[facility] PresbyterianComment on above:Performed By: #### CBC, PT, PTT, BMP #### [facility] [address] [place] [address] [phone] Tug Master: Casey Marques MD #### ANICOT #### [facility] [address] [place], [place] [id number] Tug Master: Adolph Diaz MDGFR,non Amer>60Normal>60[facility] PresbyterianComment on above:Performed By: #### CBC, PT, PTT, BMP #### [facility] [address] [place] [address] [phone] Tug Master: Casey Marques MD #### ANICOT #### [facility] [address] [place] [address] Tug Master: Adolph Diaz MDGlucose [Mass/Vol]99 mg/fJQgzqof00-13Ricgt [facility] PresbyterianComment on above:Performed By: #### CBC, PT, PTT, BMP #### [facility] [address] [place] [address] [phone] Tug Master: Casey Marques MD #### ANICOT #### [facility] [address] [place] [address] Tug Master: Brianna Wardssium [Moles/Vol]4.5 mmol/LNormal3.7-5.3[facility] PresbyterianComment on above:Performed By: #### CBC, PT, PTT, BMP #### [facility] [address] [place] [address] [phone] Tug Master: Casey Marques MD #### ANICOT #### [facility] [address] [place] [address] Tug Master: Adolph Diaz, MDSodium [Moles/Vol]139 mmol/AOweomc414-094JmliwOhiohealth Shelby HospitalComment on above:Performed By: #### CBC, PT, PTT, BMP #### [facility] [address] [place] [phone] Tug Master: Casey Marques MD #### ANICOT #### [facility] [address] [place], [place] [phone] Tug Master: Adolph Diaz MDUrea nitrogen [Mass/Vol]5 mg/dLLow6-20Ohio[facility] Shelby HospitalComment on above:Performed By: #### CBC, PT, PTT, BMP #### [facility] [address] [place] [phone] Tug Master: Casey Marques MD #### ANICOT #### [facility] [address] [place], [place] [id number] Tug Master: ANTONIETA Ward/CRE JiOT REPORTEDNormal9-20[facility] Shelby HospitalComment on above:Performed By: #### CBC, PT, PTT, BMP #### [facility] [address] [place] [phone] Tug Master: Casey Marques MD #### ANICOT #### [facility] [address] [place], [place] [id number] Tug Master: JACINTO Wardtaging:NOT REPORTEDNormalOhiohealth Shelby HospitalComment on above:Performed By: #### CBC, PT, PTT, BMP #### [facility] [address] [place] [phone] Tug Master: Casey Marques MD #### ANICOT #### [facility] [address] [place] [address] Tug Master: Adolph Diaz [facility] WITH AUTO DIFFERENTIALon 58-81-5188Lartlmonu (Bld) [#/Vol]0.06 10*3/[facility], KYBasophils/100 WBC (Bld)1 %0 - 2 % [facility], MDDifferential TypeNOT REPORTEDBerger Hospital, KYEosinophils (Bld) [#/Vol]0.35 10*3/[facility], KYEosinophils/100 WBC (Bld)3 %1 - 4 %[facility], MDErythrocyte distribution width (RBC) [Ratio]14.7 %High11.8 - 14.4 %[facility], MDHematocrit (Bld) [Volume fraction]38.4 %36.3 - 47.1 %[facility], MDHemoglobin (Bld) [Mass/Vol]12.0 g/dL11.9 - 15.1 g/dLBerger Hospital, MDImmature granulocytes (Bld) [#/Vol]1 %Vbga[address]Ctn[address] [place] [address], MD Immature granulocytes (Bld) [#/Vol]0.06 10*3/[facility], MD Interpretation and review of laboratory resultsAbnormShelby Memorial Hospital, MD Lymphocytes (Bld) [#/Vol]2.21 10*3/[facility], NORMALymphocytes/100 WBC (Bld)21 %Low24 - 43 %[facility], MDMCH (RBC) [Entitic mass]26.5 pg25.2 - 33.5 pgBerger Hospital, MDMCHC (RBC) [Mass/Vol]31.3 g/dL28.4 - 34.8 g/dLBerger Hospital, MDMCV (RBC) [Entitic vol]85.0 fL82.6 - 102.9 fLBerger Hospital, MD Monocytes (Bld) [#/Vol]0.71 10*3/[facility], KYMonocytes/100 WBC (Bld)7 %3 - 12 %[facility], MDPlatelet mean volume (Bld) [Entitic vol]8.6 fL8.1 - 13.5 fLBerger Hospital, MDPlatelets (Bld) [#/Vol]256 10*3/[facility], KYPlatelets (Bld) [#/Vol]NOT REPORTEDThe [facility] (Bld) [#/Vol]4.52 10*6/uL3.95 - 5.11 m/[facility], [facility] morphology finding Nom (Bld) ANISOCYTOSIS PRESENTBerger Hospital, MDSegmented neutrophils/100 WBC (Bld)67 % High36 - 65 %[place], KYSegs Absolute7.30[facility], MDWBC (Bld) [#/Vol]10.7 10*3/uLBerger Hospital, MDWBC (Bld) [#/Vol]0.0 10*3/uL0.0 per 100 WBCBerger Hospital, [facility] MorphologyNOT REPORTEDAultman Orrville Hospital with Diffon 34-42-1524Pnm. Basophil0.06 k/uLNormal0.00-0.20[facility] Shelby HospitalComment on above:Performed By: #### CBC, PT, PTT, BMP #### [employer] [address] [place] [address] [phone] Tug Master: Casey Marques MD #### ANALI #### [employer] [address] [place] [address] Tug Master: Ashley Ward.Imm.Granulocyte0.06 k/uLNormal0.00-0.30Ohio[facility] Shelby HospitalComment on above:Performed By: #### CBC, PT, PTT, BMP #### [employer] [address] [place] [address] Tug Master: Casey Marques MD #### RICKYT #### [facility] [address] [place] [address] Tug Master: Ashley Ward.Neutrophil (Seg)7.30 k/uLNormal1.50-8.10Ohiohealth Shelby HospitalComment on above:Performed By: #### CBC, PT, PTT, BMP #### [facility] [address] [place] [address] Tug Master: Casey Marques MD #### ANICOT #### [facility] [address] [place], [place] [phone] Tug Master: Adolph Diaz MDBasophils/100 WBC (Bld)1 %Normal0-2MMission Bernal campusComment on above:Performed By: #### CBC, PT, PTT, BMP #### [facility] [address] [place] [phone] Tug Master: Casey Marques MD #### ANICOT #### [address] [phone] Tug Master: Adolph Diaz MDEosinophils (Bld) [#/Vol]0.35 10*3/uLNormal 0.00-0.44Ohio[facility] Shelby HospitalComment on above:Performed By: #### CBC, PT, PTT, BMP #### [address] [address] Tug Master: Casey Marques MD #### ANICOT #### [address] [phone] Tug Master: Adolph Diaz MDEosinophils/100 WBC (Bld)3 %Normal1-4Ohio[facility] Shelby HospitalComment on above:Performed By: #### CBC, PT, PTT, BMP #### [address] [address] Tug Master: Casey Marques MD #### ANICOT #### [address] [phone] Tug Master: Adolph Diaz MDErythrocyte distribution width (RBC) [Ratio]14.7 %High11.8-14.4Ohio[facility] Shelby HospitalComment on above:Performed By: #### CBC, PT, PTT, BMP #### [facility] [address] [place] [phone] Tug Master: Casey Marques MD #### ANICOT #### [facility] [address] [place] [address] Tug Master: Adolph Diaz MDHematocrit (Bld) [Volume fraction]38.4 %Normal 36.3-47.1MMission Bernal campusComment on above:Performed By: #### CBC, PT, PTT, BMP #### [facility] [address] [place] [address] Tug Master: Casey Marques MD #### ANICOT #### [facility] [address] [place] [address] Tug Master: Adolph Diaz MDHemoglobin (Bld) [Mass/Vol]12.0 g/dLNormal 11.9-15.1Mclevel[facility] clinic mercy hospitaly [facility] PresbyterianComment on above:Performed By: #### CBC, PT, PTT, BMP #### [facility] [address] [place] [address] Tug Master: Casey Marques MD #### ANICOT #### [facility] [address] [place], [place] [phone] Tug Master: Adolph Diaz MDImmature granulocytes/100 WBC (Bld)1 %Sbxp9AnocvThompson Memorial Medical Center HospitalComment on above:Performed By: #### CBC, PT, PTT, BMP #### [facility] [address] [place] [address] Tug Master: Casey Marques MD #### ANICOT #### [facility] [address] [place], [place] [phone] Tug Master: Adolph Diaz MDLymphocytes (Bld) [#/Vol]2.21 10*3/uLNormal 1.10-3.70Ohio[facility] Shelby HospitalComment on above:Performed By: #### CBC, PT, PTT, BMP #### [address] [address] Tug Master: Casey Marques MD #### ANICOT #### [facility] [address] [place], [place] [phone] Tug Master: Adolph Diaz MDLymphocytes/100 WBC (Bld)21 %Jkm12-75YvcrtOhiohealth Shelby HospitalComment on above:Performed By: #### CBC, PT, PTT, BMP #### [place] [address] Tug Master: Casey Marques MD #### ANICOT #### [address] [phone] Tug Master: NIMCO Ward (RBC) [Entitic mass]26.5 teMhfzij01.2-33.5 [facility] HospitalComment on above:Performed By: #### CBC, PT, PTT, BMP #### [address] [phone] Tug Master: Casey Marques MD #### ANICOT #### [address] [phone] Tug Master: NIMCO WardC (RBC) [Mass/Vol]31.3 g/tCTbqmth44.4-34.8 [facility] HospitalComment on above:Performed By: #### CBC, PT, PTT, BMP #### [address] [phone] Tug Master: Casey Marques MD #### ANICOT #### [facility] [address] [place], [place] [id number] Tug Master: Adolph Diaz, MDMCV (RBC) [Entitic vol]85.0 kBDteknn86.6-102.9 [facility] HospitalComment on above:Performed By: #### CBC, PT, PTT, BMP #### [address] [address] Tug Master: Casey Marques MD #### ANICOT #### [facility] [address] [place] [address] Tug Master: Adolph Diaz MDMonocytes (Bld) [#/Vol]0.71 10*3/uLNormal 0.10-1.20[facility] HospitalComment on above:Performed By: #### CBC, PT, PTT, BMP #### [address] [address] Tug Master: Casey Marques MD #### ANICOT #### [facility] [address] [place] [address] Tug Master: YESSICA Wardonocytes/100 WBC (Bld)7 %Normal3-12Ohio[facility] HospitalComment on above:Performed By: #### CBC, PT, PTT, BMP #### [address] [address] Tug Master: Casey Marques MD #### ANICOT #### [facility] [address] [place] [address] Tug Master: Adolph Diaz MDNeutrophil (Seg)67 %Ivpa55-08YlgvyOhiohealth Shelby HospitalComment on above:Performed By: #### CBC, PT, PTT, BMP #### [address] [address] Tug Master: Casey Marques MD #### ANICOT #### [facility] [address] [place] [address] Tug Master: Adolph Diaz MDNRBC Automated0.0 per 100 WBCNormal0.0Ohio[facility] Shelby HospitalComment on above:Performed By: #### CBC, PT, PTT, BMP #### [address] [address] Tug Master: Casey Marques MD #### ANICOT #### [facility] [address] [place] [address] Tug Master: Stephan Ward mean volume (Bld) [Entitic vol]8.6 fL Normal8.1-13.5Ohio[facility] Shelby HospitalComment on above:Performed By: #### CBC, PT, PTT, BMP #### [address] [address] Tug Master: Casey Marques MD #### ANICOT #### [facility] [address] [place] [address] Tug Master: Yajaira Ward (Bld) [#/Vol]256 10*3/mQCuqjpl903-832 [facility] HospitalComment on above:Performed By: #### CBC, PT, PTT, BMP #### [address] [address] Tug Master: Casey Marques MD #### ANICOT #### [facility] [address] [place] [address] Tug Master: Adolph Diaz MDRBC (Bld) [#/Vol]4.52 10*6/uLNormal3.95-5.11[facility] HospitalComment on above:Performed By: #### CBC, PT, PTT, BMP #### [address] [address] Tug Master: Casey Marques MD #### ANICOT #### [facility] [address] [place] [address] Tug Master: RAYMON Ward morphology finding Nom (Bld)ANISOCYTOSIS PRESENTOhio State Health SystemComment on above:Performed By: #### CBC, PT, PTT, BMP #### [facility] [address] [place] [address] Tug Master: Casey Marques MD #### ANICOT #### [facility] [address] [place] [address] Tug Master: DIEGO Ward (Bld) [#/Vol]10.7 10*3/uLNormal3.5-11.3[facility] PresbyterianComment on above:Performed By: #### CBC, PT, PTT, BMP #### [facility] [address] [place] [address] Tug Master: Casey Marques MD #### ANICOT #### [facility] [address] [place] [address] Tug Master: Arnav Ward PerformedNOT REPORTEDOhio State Health SystemComment on above:Performed By: #### CBC, PT, PTT, BMP #### [facility] [address] [place] [address] Tug Master: Casey Marques MD #### ANICOT #### [facility] [address] [place] [address] Tug Master: Stephan Ward EstimateNOT REPORTEDOhio State Health SystemComment on above:Performed By: #### CBC, PT, PTT, BMP #### [facility] [address] [place] [address] Tug Master: Casey Marques MD #### ANICOT #### [facility] [address] [place] [address] Tug Master: DIEGO Ward MorphologyNOT REPORTEDNormalOhiohealth Shelby HospitalComment on above:Performed By: #### CBC, PT, PTT, BMP #### [employer] [address] [place] [address] [phone] Tug Master: Casey Marques MD #### ANICOT #### [facility] [address] [place] [address] Tug Master: JACINTO Wardurgical Pathologyon 33-51-8484Pmmgbdap Pathology Report-- Diagnosis -- STOMACH, SLEEVE GASTRECTOMY: [...] with no areas of granularity or masses. Ventilation Worker sections 1cs. tm Microscopic Description Sections of gastric mucosa show increased lymphocytes and plasma cells in the lamina propria. There is no evidence of acute inflammation, intestinal metaplasia or dysplasia. There is no evidence of organisms suspicious for Helicobacter with the routine H&E stains. SURGICAL PATHOLOGY CONSULTATION Patient Name: JAZ SANDERS [facility] Rec: [id number] Path Number: [id number] [facility] ANATOMIC PATHOLOGY [address] [place] [phone] [facility]- [place], KYBasic Metabolic Panelon [id number] gap [Moles/Vol]13 mmol/L9 - 17 mmol/LMercy Health- [place], KYBun/Cre RatioNOT REPORTEDMercy Health- [place], KYCalcium [Mass/Vol]9.4 mg/dL8.6 - 10.4 mg/dLMercy Health- [place], KYChloride [Moles/Vol]104 mmol/L98 - 107 mmol/LMercy Health- [place], [place] CO2 [Moles/Vol]23 mmol/L20 - 31 mmol/[facility], KYCreatinine [Mass/Vol] 0.73 mg/dL0.5 - 0.9 mg/dLBer[facility], KYGFR >60>60 mL/min [facility], KYGFR Non->60>60 mL/minBerger Hospital, [place] GFR/1.73 sq M predicted among non-blacks MDRD (S/P/Bld) [Vol rate/Area]NOT REPORTEDBer[facility] Hospital, KYGFR/1.73 sq M predicted among non-blacks MDRD (S/P/Bld) [Vol rate/Area][facility], KYComment on above:Average GFR for 20-29 years old: 116 mL/min/1.73sq m Chronic Kidney Disease: <60 mL/min/1.73sq m Kidney failure: <15 mL/min/1.73sq m eGFR calculated using average adult body mass. Additional eGFR calculator available at: http://www.[employer]/multiple_crcl_2011.htm Glucose [Mass/Vol]98 mg/dL70 - 99 mg/dLBerger Hospital, KYPotassium [Moles/Vol] 4.1 mmol/L3.7 - 5.3 mmol/[facility], KYSodium [Moles/Vol]140 mmol/L135 - 144 mmol/[facility], KYUrea nitrogen [Mass/Vol]6 mg/dL6 - 20 mg/dLBerger Hospital, KYBasic Metabolic Profon 05-07-2020(cont.)[facility] SystemComment on above:Result Comment: Average GFR for 20-29 years old: 116 mL/min/1.73sq m Chronic Kidney Disease: <60 mL/min/1.73sq m Kidney failure: <15 mL/min/1.73sq m eGFR calculated using average adult body mass. Additional eGFR calculator available at: http://www.[employer]/multiple_crcl_2012.htmPerformed By: #### CBC, BMP #### [facility] [place] [address] Tug Master: Casey Marques MDAnion gap [Moles/Vol]13 mmol/LNormal9-17Ohio[facility] Shelby HospitalComment on above:Performed By: #### CBC, BMP #### [facility] [address] [place] [address] Tug Master: Casey Marques MDCalcium [Mass/Vol]9.4 mg/dLNormal8.6-10.4Ohiohealth Shelby HospitalComment on above:Performed By: #### CBC, BMP #### [facility] [address] [place] [address] Tug Master: Casey Marques MDChloride [Moles/Vol]104 mmol/IDfkcnl17-627EuffaOhiohealth Shelby HospitalComment on above:Performed By: #### CBC, BMP #### [facility] [address] [place] [address] Tug Master: Casey Marques MDCO2 [Moles/Vol]23 mmol/YXclldw34-63YqujqOhiohealth Shelby HospitalComment on above:Performed By: #### CBC, BMP #### [facility] [address] [place] [address] Tug Master: Casey Marques MDCreatinine [Mass/Vol]0.73 mg/dLNormal0.50-0.90 [facility] Shelby HospitalComment on above:Performed By: #### CBC, BMP #### [facility] [address] [place] [address] Tug Master: SIRISHA Capellan, Amer>60Normal>60Ohio[facility] Shelby HospitalComment on above:Performed By: #### CBC, BMP #### [facility] [address] [place] [address] Tug Master: Casey Madoff, MDGFR,non Amer>60Normal>60[facility] Shelby HospitalComment on above:Performed By: #### CBC, BMP #### [facility] [address] [place] [address] Tug Master: Casey Marques MDGlucose [Mass/Vol]98 mg/vDPedctt05-41GgdhqMission Bernal campusComment on above:Performed By: #### CBC, BMP #### [facility] [address] [place] [address] Tug Master: VERONICA Capellanotassium [Moles/Vol]4.1 mmol/LNormal3.7-5.3 [facility] Shelby HospitalComment on above:Performed By: #### SAGRARIO, BMP #### [address] [address] Tug Master: JACINTO Capellanodium [Moles/Vol]140 mmol/RXsehim770-288TxhypOhiohealth Shelby HospitalComment on above:Performed By: #### SAGRARIO, BMP #### [address] [address] Tug Master: Casey Marques MDUrea nitrogen [Mass/Vol]6 mg/dLNormal6-20[facility] Shelby HospitalComment on above:Performed By: #### SAGRARIO, BMP #### [address] [address] Tug Master: Casey Marques MDBUN/CRE RatioNOT REPORTEDNormal9-20[facility] Shelby HospitalComment on above:Performed By: #### SAGRARIO, BMP #### [address] [address] Tug Master: JACINTO Capellantaging:NOT REPORTEDNormalOhiohealth Shelby HospitalComment on above:Performed By: #### CBC, BMP #### [facility] [address] [place] [address] Tug Master: Ncaho Capellan 67-39-2633Qmctdnymmng distribution width (RBC) [Ratio]14.4 %Xjngbb33.8-14.4Ohiohealth Shelby HospitalComment on above:Performed By: #### CBC, BMP #### [address] [address] Tug Master: Casey Marques MDHematocrit (Bld) [Volume fraction]40.4 %Normal 36.3-47.1MMission Bernal campusComment on above:Performed By: #### CBC, BMP #### [address] [address] Tug Master: Casey Marques MDHemoglobin (Bld) [Mass/Vol]12.6 g/dLNormal 11.9-15.1MMission Bernal campusComment on above:Performed By: #### CBC, BMP #### [address] [address] Tug Master: YESSICA CapellanCH (RBC) [Entitic mass]26.1 vtVxyuxf89.2-33.5 [facility] HospitalComment on above:Performed By: #### CBC, BMP #### [address] [address] Tug Master: YESSICA CapellanCHC (RBC) [Mass/Vol]31.2 g/lKZytmxg90.4-34.8 [facility] HospitalComment on above:Performed By: #### CBC, BMP #### [address] [address] Tug Master: YESSICA CapellanCV (RBC) [Entitic vol]83.8 kTVfmizr61.6-102.9 [facility] HospitalComment on above:Performed By: #### CBC, BMP #### [address] [address] Tug Master: Casey Marques MDNRBC Automated0.0 per 100 WBCNormal0.0Ohio[facility] Shelby HospitalComment on above:Performed By: #### CBC, BMP #### [facility] [employer] [address] [place] [address] Tug Master: Jose Capellantelet mean volume (Bld) [Entitic vol]8.7 fL Normal8.1-13.5Ohio[facility] Shelby HospitalComment on above:Performed By: #### CBC, BMP #### [address] [address] Tug Master: VERONICA Capellanlatelets (Bld) [#/Vol]289 10*3/lFMtuutw122-947 [facility] HospitalComment on above:Performed By: #### CBC, BMP #### [address] [address] Tug Master: Casey Marques MDRBC (Bld) [#/Vol]4.82 10*6/uLNormal3.95-5.11 [facility] HospitalComment on above:Performed By: #### CBC, BMP #### [address] [address] Tug Master: Casey Marques MDWBC (Bld) [#/Vol]13.7 10*3/uLHigh3.5-11.3MMission Bernal campusComment on above:Performed By: #### CBC, BMP #### [facility] [address] [place] [address] Tug Master: Casey Marques MDErythrocyte distribution width (RBC) [Ratio]14.4 %11.8 - 14.4 %[facility], KYHematocrit (Bld) [Volume fraction]40.4 %36.3 - 47.1 %[facility], KYHemoglobin (Bld) [Mass/Vol]12.6 g/dL11.9 - 15.1 g/dL [facility], MDInterpretation and review of laboratory resultsAbnormShelby Memorial Hospital, MDMCH (RBC) [Entitic mass]26.1 pg25.2 - 33.5 pgHuntsville, KY MCHC (RBC) [Mass/Vol]31.2 g/dL28.4 - 34.8 g/dLHuntsville, KYMCV (RBC) [Entitic vol]83.8 fL82.6 - 102.9 fLHuntsville, KYPlatelet mean volume (Bld) [Entitic vol]8.7 fL8.1 - 13.5 fLBerger Hospital, MDPlatelets (Bld) [#/Vol]289 10*3/[facility], MDRBC (Bld) [#/Vol]4.82 10*6/uL3.95 - 5.11 m/[facility], MDWBC (Bld) [#/Vol]0.0 10*3/uL0.0 per 100 WBCHuntsville, KYWBC (Bld) [#/Vol]13.7 10*3/uLHighHuntsville, KYFL ESOPHAGRAMon [id number] ESOPHAGRAMEXAMINATION: SINGLE CONTRAST ESOPHAGRAM 05/07/2020 HISTORY: ORDERING [...] Signed by: Petr Cullen MD 05/07/20 Final resultNoToledo HospitalEXAMINATION: SINGLE CONTRAST ESOPHAGRAM 05/07/2020 HISTORY: ORDERING [...] gastric sleeve. No obstruction. No extravasation of contrast.[facility] HelidyneTWO RIVERS PSYCHIATRIC HOSPITALGerardo Mhpn Incoming Radiant Results From OutTrippin/Use It Better - 05/07/2020 10:04 AM EST EXAMINATION: SINGLE [...] of contrast. IMPRESSION: No extravasation of contrast. [facility] HospitalDatameerTWO RIVERS PSYCHIATRIC HOSPITALJacob extravasation of contrast.[facility] HelidyneTWO RIVERS PSYCHIATRIC HOSPITALNORMAPOCT urine pregnancyon 49-89-2462Fxpt HCG ( test) Ql (U)NegativeNEGATIVEBer[facility] Hospital, NORMAComment on above:Specimens with hCG levels near the threshold of the test (25 mIU/mL) may give a negative or indeterminate result. In such cases, another test should be performed with a new specimen in 48-72 hours. If early is suspected clinically in this setting, correlation with quantitative serum b-hCG level is suggested. Basic Metabolic Panelon [id number] gap [Moles/Vol]10 mmol/L9 - 17 mmol/L [facility] HelidyneTWO RIVERS PSYCHIATRIC HOSPITAL, KYBun/Cre RatioNOT REPORTEDBer[facility] Hospital, KYCalcium [Mass/Vol]9.5 mg/dL8.6 - 10.4 mg/dLBer[facility] Hospital, KYChloride [Moles/Vol]103 mmol/L98 - 107 mmol/LMercBayfront Health St. Petersburg Emergency Room, KYCO2 [Moles/Vol]19 mmol/LLow20 - 31 mmol/LMGalion Community Hospital, KYCreatinine [Mass/Vol]0.9 mg/dL0.5 - 0.9 mg/dLBer[facility] Hospital, KYGFR >60>60 mL/minBerger Hospital, KYGFR Non- >60>60 mL/minBerger Hospital, KYGFR/1.73 sq M predicted among non-blacks MDRD (S/P/Bld) [Vol rate/Area]NOT REPORTEDBer[facility] Hospital, [place] GFR/1.73 sq M predicted among non-blacks MDRD (S/P/Bld) [Vol rate/Area][facility], KYComment on above:Average GFR for 20-29 years old: 116 mL/min/1.73sq m Chronic Kidney Disease: <60 mL/min/1.73sq m Kidney failure: <15 mL/min/1.73sq m eGFR calculated using average adult body mass. Additional eGFR calculator available at: http://www.[employer]/TwitChat_crcl_2011.htm Glucose [Mass/Vol]162 mg/fLPkts91 - 99 mg/dLBerger Hospital, KYInterpretation and review of laboratory resultsAbnormalBerger Hospital, KYPotassium [Moles/Vol]3.9 mmol/L3.7 - 5.3 mmol/[facility], KYSodium [Moles/Vol]132 mmol/RVao225 - 144 mmol/[facility], KYUrea nitrogen [Mass/Vol]10 mg/dL6 - 20 mg/dLBerger Hospital, KYBasic Metabolic Profon 05-06-2020(cont.)NormalOhiohealth Shelby HospitalComment on above:Result Comment: Average GFR for 20- 29 years old: 116 mL/min/1.73sq m Chronic Kidney Disease: <60 mL/min/1.73sq m Kidney failure: <15 mL/min/1.73sq m eGFR calculated using average adult body mass. Additional eGFR calculator available at: http://www.[employer]/multiple_crcl_2012.htmPerformed By: #### CBC, BMP #### [employer] [address] [place] [address] Tug Master: Casey Marques MDAnion gap [Moles/Vol]10 mmol/LNormal9-17[facility] HospitalComment on above:Performed By: #### CBC, BMP #### [facility] [address] [place] [address] Tug Master: Casey Marques MDCalcium [Mass/Vol]9.5 mg/dLNormal8.6-10.4[facility] HospitalComment on above:Performed By: #### CBC, BMP #### [facility] [address] [place] [address] Tug Master: Casey Marques MDChloride [Moles/Vol]103 mmol/SNucjcd21-737IhzkrOhiohealth Shelby HospitalComment on above:Performed By: #### CBC, BMP #### [facility] [address] [place] [address] Tug Master: Casey Marques MDCO2 [Moles/Vol]19 mmol/AHsf39-91MlceyOhiohealth Shelby HospitalComment on above:Performed By: #### CBC, BMP #### [facility] [address] [place] [address] Tug Master: Casey Marques MDCreatinine [Mass/Vol]0.90 mg/dLNormal0.50-0.90 [facility] HospitalComment on above:Performed By: #### CBC, BMP #### [facility] [address] [place] [address] Tug Master: SIRISHA Capellan, Amer>60Normal>60[facility] HospitalComment on above:Performed By: #### CBC, BMP #### [facility] [address] [place] [address] Tug Master: SIRISHA Capellan,non Amer>60Normal>60[facility] HospitalComment on above:Performed By: #### CBC, BMP #### [facility] [address] [place] [address] Tug Master: Casey Marques MDGlucose [Mass/Vol]162 mg/cLTtbl25-59DdyqzMission Bernal campusComment on above:Performed By: #### CBC, BMP #### [facility] [address] [place] [address] Tug Master: Casey Marques MDPotassium [Moles/Vol]3.9 mmol/LNormal3.7-5.3 [facility] HospitalComment on above:Performed By: #### CBC, BMP #### [address] [address] Tug Master: JACINTO Capellanodium [Moles/Vol]132 mmol/QWkz748-360IxynkOhiohealth Shelby HospitalComment on above:Performed By: #### SAGRARIO, BMP #### [address] [address] Tug Master: Casey Marques MDUrea nitrogen [Mass/Vol]10 mg/dLNormal6-20[facility] HospitalComment on above:Performed By: #### CBC, BMP #### [address] [address] Tug Master: ROSALBA CapellanN/CRE RatioNOT REPORTEDNormal9-20[facility] HospitalComment on above:Performed By: #### CBC, BMP #### [address] [address] Tug Master: JACINTO Capellantaging:NOT REPORTEDNormalOhiohealth Shelby HospitalComment on above:Performed By: #### CBC, BMP #### [address] [address] Tug Master: Nacho Capellan 45-64-4592Yojfislavwx distribution width (RBC) [Ratio]14.6 %High11.8-14.4Ohio[facility] Shelby HospitalComment on above:Performed By: #### CBC, BMP #### [address] [address] Tug Master: Casey Marques MDHematocrit (Bld) [Volume fraction]42.5 %Normal 36.3-47.1MMission Bernal campusComment on above:Performed By: #### CBC, BMP #### [address] [address] Tug Master: Casey Marques MDHemoglobin (Bld) [Mass/Vol]12.8 g/dLNormal 11.9-15.1MMission Bernal campusComment on above:Performed By: #### CBC, BMP #### [address] [address] Tug Master: YESSICA CapellanCH (RBC) [Entitic mass]26.9 akDkkqnt90.2-33.5 [facility] HospitalComment on above:Performed By: #### CBC, BMP #### [address] [address] Tug Master: YESSICA CapellanCHC (RBC) [Mass/Vol]30.1 g/yHLhbcgg86.4-34.8 [facility] HospitalComment on above:Performed By: #### CBC, BMP #### [address] [address] Tug Master: YESSICA CapellanCV (RBC) [Entitic vol]89.3 lGNtxhbg12.6-102.9 [facility] HospitalComment on above:Performed By: #### CBC, BMP #### [address] [address] Tug Master: RAMONE Capellan Automated0.0 per 100 WBCNormal0.0[facility] HospitalComment on above:Performed By: #### CBC, BMP #### [facility] [address] [place] [address] Tug Master: Jose Capellantebrigid mean volume (Bld) [Entitic vol]8.4 fL Normal8.1-13.5[facility] HospitalComment on above:Performed By: #### CBC, BMP #### [facility] [address] [place] [address] Tug Master: Jose Capellantelets (Bld) [#/Vol]300 10*3/fOGfiqpg642-643 [facility] HospitalComment on above:Performed By: #### CBC, BMP #### [facility] [address] [place] [address] Tug Master: MADDI CapellanBC (Bld) [#/Vol]4.76 10*6/uLNormal3.95-5.11 [facility] HospitalComment on above:Performed By: #### CBC, BMP #### [address] [address] Tug Master: DIEGO Capellan (Bld) [#/Vol]14.3 10*3/uLHigh3.5-11.3MMission Bernal campusComment on above:Performed By: #### CBC, BMP #### [facility] [address] [place] [address] Tug Master: NIDIA Capellan without Diffon 95-55-0892Anrocnquiww distribution width (RBC) [Ratio]14.6 %High11.8 - 14.4 %[place], [place] Hematocrit (Bld) [Volume fraction]42.5 %36.3 - 47.1 %[place], [place] Hemoglobin (Bld) [Mass/Vol]12.8 g/dL11.9 - 15.1 g/dLHuntsville, [place] Interpretation and review of laboratory resultsAbnormalOhioHealth Grove City Methodist HospitalH (RBC) [Entitic mass]26.9 pg25.2 - 33.5 pgHuntsville, KYMCHC (RBC) [Mass/Vol]30.1 g/dL28.4 - 34.8 g/dLHuntsville, KYMCV (RBC) [Entitic vol] 89.3 fL82.6 - 102.9 fLHuntsville, KYPlatelet mean volume (Bld) [Entitic vol]8.4 fL8.1 - 13.5 fLHuntsville, KYPlatelets (Bld) [#/Vol]300 10*3/uL [place], KYRBC (Bld) [#/Vol]4.76 10*6/uL3.95 - 5.11 m/uLHuntsville, KYWBC (Bld) [#/Vol]14.3 10*3/uLHighHuntsville, KYWBC (Bld) [#/Vol]0.0 10*3/uL0.0 per 100 WBCHuntsville, KYSurgical Pathologyon 05-06-2020 Surgical Pathology(NOTE) -- Diagnosis [...] with no areas of granularity or masses. Ventilation Worker sections 1cs. tm Microscopic Description Sections of gastric mucosa show increased lymphocytes and plasma cells in the lamina propria. There is no evidence of acute inflammation, intestinal metaplasia or dysplasia. There is no evidence of organisms suspicious for Helicobacter with the routine BRI stains. SURGICAL PATHOLOGY CONSULTATION Patient Name: JAZ SANDERS [facility] Rec: [id number] Path Number: [id number] [facility] ANATOMIC PATHOLOGY [address] [place] [phone] NoToledo HospitalComment on above: Performed By: #### CBC, PT, PTT, BMP #### [facility] [address] [place] [address] [phone] Tug Master: Casey Marques MD #### ANICOT #### [facility] [address] [place] [address] Tug Master: YU WardCoV-2on 73-18-6527LBOV-CoV-2NMercy Health Willard HospitalComment on above:Performed By: #### COVID #### [address] [phone] Tug Master: Tracie Capellan2Not DetectedNoalNOTDEPaulding County HospitalComment on above:Result Comment: The specimen is [...] this assay. Fact sheet for Healthcare Providers: https://www.fda.gov/media/404476/download Fact sheet for Patients: https://www.fda.gov/media/662347/download METHODOLOGY: RT-PCRPerformed By: #### COVID #### [facility] [address] [place] [address] Tug Master: YU CapellanCoV-2,[facility] Comment on above:Performed By: #### COVID #### [facility] [address] [place] [address] Tug Master: YU CapellanCoV-2on 17-78-9596NAKC-CoV-2 Source .NASOPHARYNGEAL SWABMercy Health Allen HospitalComment on above:Performed By: #### COVID #### [facility] [address] [place] [address] Tug Master: Ilana Capellan [id number]-JK-Qyqpzhqf<2NDayton VA Medical CenterComment on above:Performed By: #### CBC, PT, PTT, BMP #### [facility] [address] [place] [address] Tug Master: Casey Marques MD #### ANICOT #### [facility] [address] [place], [place] [id number] Tug Master: Ariella Ward<2NormalOhiohealth Shelby Hospital Comment on above:Performed By: #### CBC, PT, PTT, BMP #### [facility] [address] [place] [address] Tug Master: Casey Marques MD #### ANICOT #### [facility] [address] [place], [place] [id number] Tug Master: Jaja Wardotine<2NormalOhiohealth Shelby Hospital Comment on above:Result Comment: (NOTE) Consistent [...] positive. Test developed and characteristics determined by [employer]. See Compliance Statement B: [employer]/CS Performed By: [employer] [address] [place] [address] Operating Table Assembler: VERONICA Barerformed By: #### CBC, PT, PTT, BMP #### [facility] [place] [address] Tug Master: Casey Marques MD #### ANICOT #### [employer] [address] [place] [address] Tug Master: Shani WardBreckinridge Memorial Hospital [address]-[place]-Gejlgmal<2ng/mL [facility]- [place], KYCotinine<2ng/mLMerPocketSuite Health- [place], KYNicotine<2ng/mLMercy Health- [place], KYComment on [...] positive. Test developed and characteristics determined by [employer]. See Compliance Statement B: [employer]/CS Performed By: [employer] [address] [place] [address] Operating Table Assembler: Lynn Layne MD EKG 12 Leadon [id number] Tkql08ELFZaswxBer[facility] Hospital, KYP Kjsu11fbbbgxpCkood Health- [place], KYP-R Tcpinfzm937 [facility] [place], KYQ-T Dbtcqcjo288 [facility], KYQRS Jzqtrjbb30 [facility] [place], KYQTc Calculation (Tamelatt)500 [facility], KYR Tyyv40hbunqoqOgykx Health- [place], KYT Vbnm12ejcjnkkDbpet Health- [place], KYVentricular Yyok41OJZXulii Health- [place], KYNormal sinus rhythm with sinus arrhythmia Prolonged QT Abnormal ECG No previous ECGs availableBerger Hospital, Silver Carrillo Incoming Ekg [place] [facility] [place]23/[place] 12:32 PM EST Normal sinus rhythm with sinus arrhythmia Prolonged QT Abnormal ECG No previous ECGs availableBerger Hospital, MDAPTValleywise Behavioral [facility] 55-70-1929uLCB Coag (Bld) [Time]22.2 uMfcajs02.5-30.5Ohiohealth Shelby HospitalComment on above: Result Comment: IV Heparin Therapy Range: 48.6-77.8Performed By: #### CBC, PT, PTT, BMP #### [employer] [address] [place] [address] Tug Master: Casey Marques MD #### ANICOT #### [employer] [address] [place] [address] Tug Master: Adolph Diaz MDaPTGino Coag (Bld) [Time]22.2 [facility], [place] Comment on above: IV Heparin Therapy Range: 48.6-77.8 Basic Metabolic Panelon 37-35-3132Zcvpi gap [Moles/Vol]12 mmol/L9 - 17 mmol/L [facility], KYBun/Cre RatioNOT REPORTEDBerger Hospital, KYCalcium [Mass/Vol]9.2 mg/dL8.6 - 10.4 mg/dLBerger Hospital, KYChloride [Moles/Vol]104 mmol/L98 - 107 mmol/LMGalion Community Hospital, KYCO2 [Moles/Vol]23 mmol/L20 - 31 mmol/L [facility], KYCreatinine [Mass/Vol]0.69 mg/dL0.5 - 0.9 mg/dLBerger Hospital, KYGFR >60>60 mL/minBerger Hospital, KYGFR Non->60>60 mL/minBerger Hospital, KYGFR/1.73 sq M predicted among non- blacks MDRD (S/P/Bld) [Vol rate/Area]NOT REPORTEDBerger Hospital, KYGFR/1.73 sq M predicted among non-blacks MDRD (S/P/Bld) [Vol rate/Area][facility], [place] Comment on above:Average GFR for 20-29 years old: 116 mL/min/1.73sq m Chronic Kidney Disease: <60 mL/min/1.73sq m Kidney failure: <15 mL/min/1.73sq m eGFR calculated using average adult body mass. Additional eGFR calculator available at: http://www.[employer]/multiple_crcl_2011.htm Glucose [Mass/Vol]123 mg/jOIkzg05 - 99 mg/dLBerger Hospital, KYInterpretation and review of laboratory resultsAbnormalBerger Hospital, KYPotassium [Moles/Vol]4.1 mmol/L3.7 - 5.3 mmol/LMGalion Community Hospital, KYSodium [Moles/Vol]139 mmol/L135 - 144 mmol/LMGalion Community Hospital, KYUrea nitrogen [Mass/Vol]7 mg/dL6 - 20 mg/dLBerger Hospital, KYBasic Metabolic Profon 04-22-2020(cont.)NormalOhiohealth Shelby HospitalComment on above:Result Comment: Average GFR for 20-29 years old: 116 mL/min/1.73sq m Chronic Kidney Disease: <60 mL/min/1.73sq m Kidney failure: <15 mL/min/1.73sq m eGFR calculated using average adult body mass. Additional eGFR calculator available at: http://www.[employer]att.[employer].org/multiple_crcl_2012.htmPerformed By: #### CBC, PT, PTT, BMP #### [facility] [address] [place] [address] Tug Master: Casey Marques MD #### ANICOT #### [facility] [address] [place] [address] Tug Master: Dontae Ward gap [Moles/Vol]12 mmol/LNormal9-17[facility] HospitalComment on above:Performed By: #### CBC, PT, PTT, BMP #### [address] [address] Tug Master: Casey Marques MD #### ANICOT #### [address] [address] Tug Master: XIN Wardalcium [Mass/Vol]9.2 mg/dLNormal8.6-10.4Ohio[facility] Shelby HospitalComment on above:Performed By: #### CBC, PT, PTT, BMP #### [address] [address] Tug Master: Casey Marques MD #### ANICOT #### [facility] [address] [place] [address] Tug Master: XIN Wardhloride [Moles/Vol]104 mmol/AXlllpn77-930UmrhgOhiohealth Shelby HospitalComment on above:Performed By: #### CBC, PT, PTT, BMP #### [facility] [place] [address] Tug Master: Casey Marques MD #### ANICOT #### [facility] [address] [place] [address] Tug Master: XIN WardO2 [Moles/Vol]23 mmol/GCuxdoh03-56GzuwfOhiohealth Shelby HospitalComment on above:Performed By: #### CBC, PT, PTT, BMP #### [facility] [address] [place] [address] Tug Master: Casey Marques MD #### ANICOT #### [facility] [address] [place] [address] Tug Master: XIN Wardreatinine [Mass/Vol]0.69 mg/dLNormal0.50-0.90 [facility] Shelby HospitalComment on above:Performed By: #### CBC, PT, PTT, BMP #### [facility] [address] [place] [address] Tug Master: Casey Marques MD #### ANICOT #### [facility] [address] [place], [place] [id number] Tug Master: Adolph Diaz MDGFR, Amer>60Normal>60Ohio[facility] Shelby HospitalComment on above:Performed By: #### CBC, PT, PTT, BMP #### [facility] [address] [place] [address] Tug Master: Casey Marques MD #### ANICOT #### [facility] [address] [place] [address] Tug Master: Adolph Diaz MDGFR,non Amer>60Normal>60Ohiohealth Shelby HospitalComment on above:Performed By: #### CBC, PT, PTT, BMP #### [facility] [address] [place] [address] Tug Master: Casey Marques MD #### ANICOT #### [facility] [address] [place] [address] Tug Master: Adolph Diaz MDGlucose [Mass/Vol]123 mg/kTUojt46-58RmcwgMission Bernal campusComment on above:Performed By: #### CBC, PT, PTT, BMP #### [address] [address] Tug Master: Casey Marques MD #### ANICOT #### [facility] [address] [place] [address] Tug Master: VERONICA Wardotassium [Moles/Vol]4.1 mmol/LNormal3.7-5.3MMission Bernal campusComment on above:Performed By: #### CBC, PT, PTT, BMP #### [address] [address] Tug Master: Casey Marques MD #### ANICOT #### [address] [address] Tug Master: JACINTO Wardodium [Moles/Vol]139 mmol/OFwskam881-227BxqrbOhiohealth Shelby HospitalComment on above:Performed By: #### CBC, PT, PTT, BMP #### [address] [address] Tug Master: Casey Marques MD #### ANICOT #### [facility] [address] [place] [address] Tug Master: Adolph Diaz MDUrea nitrogen [Mass/Vol]7 mg/dLNormal6-20Ohiohealth Shelby HospitalComment on above:Performed By: #### CBC, PT, PTT, BMP #### [address] [address] Tug Master: Casey Marques MD #### ANICOT #### [address] [address] Tug Master: Adolph Diaz MDBUTanja/CRE RatioNOT REPORTEDNoatrium health [facility]20Ohiohealth Shelby HospitalComment on above:Performed By: #### CBC, PT, PTT, BMP #### [facility] [address] [place] [address] Tug Master: Casey Marques MD #### ANICOT #### [facility] [address] [place] [address] Tug Master: JACINTO Wardtaging:NOT REPORTEDNoalOhiohealth Shelby HospitalComment on above:Performed By: #### CBC, PT, PTT, BMP #### [facility] [address] [place] [address] Tug Master: Casey Marques MD #### ANICOT #### [facility] [address] [place] [address] Tug Master: XIN Wardmanisha [phone] distribution width (RBC) [Ratio]14.6 %High11.8-14.4Ohiohealth Shelby HospitalComment on above:Performed By: #### CBC, PT, PTT, BMP #### [facility] [address] [address] Tug Master: Casey Marqeus MD #### ANICOT #### [facility] [address] [place] [address] Tug Master: Adolph Diaz MDHematocrit (Bld) [Volume fraction]40.8 %Normal 36.3-47.1[facility] PresbyterianComment on above:Performed By: #### CBC, PT, PTT, BMP #### [facility] [address] [address] Tug Master: Casey Marques MD #### ANICOT #### [facility] [address] [place], [place] [id number] Tug Master: Adolph Diaz MDHemoglobin (Bld) [Mass/Vol]12.8 g/dLNormal 11.9-15.1MMission Bernal campusComment on above:Performed By: #### CBC, PT, PTT, BMP #### [address] [id number] Tug Master: Casey Marques MD #### ANICOT #### [facility] [address] [place], [place] [id number] Tug Master: YESSICA WardCH (RBC) [Entitic mass]26.5 msUcvgcb01.2-33.5 Ohio[facility] Shelby HospitalComment on above:Performed By: #### CBC, PT, PTT, BMP #### [address] [address] Tug Master: Casey Marques MD #### ANICOT #### [facility] [address] [place], [place] [id number] Tug Master: NIMCO WardC (RBC) [Mass/Vol]31.4 g/eAHihcvy48.4-34.8 Ohio[facility] Shelby HospitalComment on above:Performed By: #### CBC, PT, PTT, BMP #### [address] [id number] Tug Master: Casey Marques MD #### ANICOT #### [facility] [address] [place], [place] [id number] Tug Master: YESSICA WardCV (RBC) [Entitic vol]84.5 iJXnguxr62.6-102.9 [facility] Shelby HospitalComment on above:Performed By: #### CBC, PT, PTT, BMP #### [address] [address] Tug Master: Casey Marques MD #### ANICOT #### [facility] [address] [place] [address] Tug Master: Adolph Diaz MDNRBC Automated0.0 per 100 WBCNormal0.0Ohiohealth Shelby HospitalComment on above:Performed By: #### CBC, PT, PTT, BMP #### [facility] [address] [place] [address] Tug Master: Casey Marques MD #### ANICOT #### [facility] [address] [place] [address] Tug Master: Stephan Ward mean volume (Bld) [Entitic vol]8.7 fL Normal8.1-13.5Ohiohealth Shelby HospitalComment on above:Performed By: #### CBC, PT, PTT, BMP #### [place] [address] Tug Master: Casey Marques MD #### ANICOT #### [facility] [address] [place] [address] Tug Master: Yajaira Ward (Bld) [#/Vol]298 10*3/eCAfwybs276-787 Ohio[facility] Shelby HospitalComment on above:Performed By: #### CBC, PT, PTT, BMP #### [place] [address] Tug Master: Casey Marques MD #### ANICOT #### [facility] [address] [place] [address] Tug Master: RAYMON Ward (Bld) [#/Vol]4.83 10*6/uLNormal3.95-5.11Ohiohealth Shelby HospitalComment on above:Performed By: #### CBC, PT, PTT, BMP #### [place] [id number] Tug Master: Casey Marques MD #### ANICOT #### [facility] [address] [place] [address] Tug Master: Adolph Diaz MDWBC (Bld) [#/Vol]10.8 10*3/uLNormal3.5-11.3[facility] PresbyterianComment on above:Performed By: #### CBC, PT, PTT, BMP #### [facility] [address] [place], [place] [address] Tug Master: Casey Marques MD #### ANICOT #### [facility] [address] [place] [address] Tug Master: Adolph Diaz MDErythrocyte distribution width (RBC) [Ratio]14.6 %High11.8 - 14.4 %[facility], MDHematocrit (Bld) [Volume fraction]40.8 % 36.3 - 47.1 %[facility], MDHemoglobin (Bld) [Mass/Vol]12.8 g/dL11.9 - 15.1 g/dLBerger Hospital, MDInterpretation and review of laboratory resultsAbnormal [facility], [facility] (RBC) [Entitic mass]26.5 pg25.2 - 33.5 pgBerger Hospital, [facility]HC (RBC) [Mass/Vol]31.4 g/dL28.4 - 34.8 g/dLBerger Hospital, [facility]ERV (RBC) [Entitic vol]84.5 fL82.6 - 102.9 fLHolzer Medical Center – [place]- [place], MDPlatelet mean volume (Bld) [Entitic vol]8.7 fL8.1 - 13.5 fLHolzer Medical Center – [place]- [place], KYPlatelets (Bld) [#/Vol]298 10*3/uLHolzer Medical Center – [place]- [place], KYRBC (Bld) [#/Vol]4.83 10*6/uL3.95 - 5.11 m/[facility] [place], KYWBC (Bld) [#/Vol]10.8 10*3/uLBerger HospitalNORMAWBC (Bld) [#/Vol]0.0 10*3/uL0.0 per 100 WBCBerger HospitalHectoron [phone] acute cardiopulmonary findingsBerger HospitalNORMAEXAMINATION: TWO XRAY VIEWS OF THE CHEST 04/22/2020 2:46 pm COMPARISON: Baseline examination HISTORY:ORDERING SYSTEM PROVIDED HISTORY: preop gastric bypass [employer] TECHNOLOGIST PROVIDED HISTORY: preop gastric bypass Ben [employer] Y Reason for Exam: preop gastric bypass FINDINGS: Normal cardiopericardialsilhouette There are no significant pleural, parenchymal, mediastinal or osseous findingsBerger HospitalNORMASilver Madrid Incoming Radiant Results From [employer] - 04/22/2020 3:28 PM EST EXAMINATION: TWO XRAY VIEWS OF THE CHEST 04/22/2020 2:46 pm COMPARISON: Baseline examination HISTORY: ORDERING SYSTEM PROVIDED HISTORY: preop gastric bypass [employer] TECHNOLOGIST PROVIDED HISTORY: preop gastric bypass Ben En Y Reason for Exam: preop gastric bypass FINDINGS: Normal cardiopericardial silhouette There are no significant pleural, parenchymal, mediastinal or osseous findings IMPRESSION: No acute cardiopulmonary findings Berger HospitalEricka [phone] Coag (PPP) [Relative time]0.9 {INR}Normal [facility] Shelby HospitalComment on above:Result Comment: Therapeutic Range: Moderate Anticoagulant Intensity: INR = 2.0-3.0 High Anticoagulant Intensity: INR = 2.5-3.5Performed By: #### CBC, PT, PTT, BMP #### [employer] [address] [place], [place] [id number] Tug Master: Casey Marques MD #### ANICOT #### [facility] [address] [place] [address] Tug Master: CULLEN Ward Coag (PPP) [Time]9.3 sNormal9.0-12.0Ohiohealth Shelby HospitalComment on above:Performed By: #### CBC, PT, PTT, BMP #### [employer] [address] [place] [address] Tug Master: Casey Marques MD #### ANALI #### [facility] [address] [place] [address] Tug Master: VERONICA Wardrotime-INRon [phone] Coag (PPP) [Relative time]0.9 {INR}[employer]ita[employer], NORMAComaspirus iron river hospital on above: Therapeutic Range: Moderate Anticoagulant Intensity: INR = 2.0-3.0 High Anticoagulant Intensity: INR = 2.5-3.5 PT Coag (PPP) [Time]9.3 sMohiohealth grant medical center [employer] [place], [place]XR CHEST (2 VW)on [id number] CHEST (2 VW)EXAMINATION: TWO XRAY VIEWS OF [...] Signed by: Roxanne Avitia MD 04/22/20 Final resultNoToledo Hospital Vital Signs Date TimeVital SignValuePerforming PlcbclmhcQpgrjpaf37-84-0041 13:26-0500Body mass index (BMI) [Ratio]40.03 kg/u8Ktkak Juan DO Work Phone: [facility] HospitalOfhdufmsnh78-96-9889 13:26-0500Body .18 kgCorey Juan DO Work Phone: [facility] HospitalNcrjswweya04-65-2751 13:26-0500Diastolic blood stcbbozg29 mm[Hg]Les Juan DO Work Phone: [facility] HospitalYrbksonehs14-25-1723 13:26-0500Systolic blood jifipdid750 mm[Hg]Les Juan DO Work Phone: [facility] HospitalIcgcpwyvao02-99-6985 14:43-0400Body mass index (BMI) [Ratio]39.77 kg/m2Amy Kwaku PA Work Phone: [phone]-[facility]' HospitalUtdjnmnqbo67-54-5241 14:43-0400Body qljeov232.33 kgAmy Kwaku PA Work Phone: [facility] HospitalSlqnutdsck54-81-0893 14:43-0400Diastolic blood zvsuivri72 mm[Hg]Jojo Ames PA Work Phone: [phone]-[facility]' HospitalObqkbwemru55-36-0472 14:43-0400Systolic blood nmgcwicu173 mm[Hg]Jojo Pelaezey PA Work Phone: [phone] [place], [place] [address]Rzbtgpibyl40-64-4881 11:34-0400Body mass index (BMI) [Ratio]38.49 kg/o6TfnqpfzpMima Duenas RESPIRATORY CARE PROGRAM DIRECTOR Work Phone: [phone]-[facility]' HospitalPseoimrcry73-06-3128 11:34-0400Body ojjpec256.19 kgMima Duenas RESPIRATORY CARE PROGRAM DIRECTOR Work Phone: [phone] [place], [place] [address]Haxjnnlvmr31-07-0823 11:34-0400Diastolic blood lukvdkjf94 mm[Hg]Mima Duenas RESPIRATORY CARE PROGRAM DIRECTOR Work Phone: [phone] [place], [place] [address]Alnkbouajp01-70-5823 11:34-0400Systolic blood yebtjubb274 mm[Hg]Mima Duenas RESPIRATORY CARE PROGRAM DIRECTOR Work Phone: [phone] [place], [place] [address]Oblvnaxtkf21-21-3764 10:01-0400Body mass index (BMI) [Ratio]36.79 kg/m2Amy Kwaku PA Work Phone: [phone] [place], [place] [address]Ncttcdjcac91-41-1383 10:01-0400Body tqiqsg234.66 kgAmy [place] PA Work Phone: [phone] [place], [place] [address]Engwaqkkcj52-88-7986 10:01-0400Diastolic blood prfaqlyf72 mm[Hg]Jojo Ames PA Work Phone: [phone] [place], [place] [address]Vkvfnjtwyb88-95-2218 10:01-0400Systolic blood lnvajopb938 mm[Hg]Jojo Ames PA Work Phone: 1(596)205-[address] [place], [place] [address]Cunhkslamf53-76-8015 12:46-0400Body rkguyt935.3 cmEnrike Lindquist MD Work Phone: [phone] [place], [place] 3875908-20-2025 12:46-0400Body mass index (BMI) [Ratio]35.84 kg/e7LkhemdagEnrike Lindquist MD Work Phone: [phone])[address] [place], [place] 3875908-20-2025 12:46-0400Body eghldu223.57 kgEnrike Lindquist MD Work Phone: [phone] [place], [place] 3875908-20-2025 12:46-0400Diastolic blood mysqqjmo98 mm[Hg]Enrike Lindquist MD Work Phone: [phone] [place], [place] 38[address]908-20-2025 12:46-0400Heart rate 73 /minEnrike Lindquist MD Work Phone: [phone] [place], [place] 38[address]908-20-2025 12:46-0400Systolic blood yrbdhfug89 mm[Hg]Enrike Lindquist MD Work Phone: [phone] [place], [place] 38[address]908-17-2025 23:35-0400Body kuzsok700.34 cmAmanda Shethrbacher FIBERGLASS TECHNICIAN Work Phone: [facility]08-17-2025 23:35-0400 Body zburluubnye83.2 [degF]Amanda Ford FIBERGLASS TECHNICIAN Work Phone: [facility]08-17-2025 23:35-0400 Body ikgeff038.66 kgAmanda Shethrbacher FIBERGLASS TECHNICIAN Work Phone: [facility]08-17-2025 23:35-0400 Diastolic blood mzdkakxj92 mm[Hg]Amanda Ford FIBERGLASS TECHNICIAN Work Phone: [facility]08-17-2025 23:35-0400 Heart rate75 /minArtemoinnedmundo Shethrbacher FIBERGLASS TECHNICIAN Work Phone: [facility]08-17-2025 23:35-0400 Respiratory rate16 /minAmanda Shethrbacher FIBERGLASS TECHNICIAN Work Phone: [facility]08-17-2025 23:35-0400 SaO2% (BldA) [Mass fraction]97 %Amanda Ford FIBERGLASS TECHNICIAN Work Phone: [facility]08-17-2025 23:35-0400 Systolic blood dsrwycvk236 mm[Hg]Amanda Hahnnikkie FIBERGLASS TECHNICIAN Work Phone: [facility]08-05-2025 10:37-0400 Body ulhxun513.1216 kgAmanda Ford FIBERGLASS TECHNICIAN Work Phone: [facility]08-05-2025 09:10-0400 Body mass index (BMI) [Ratio]35.7 kg/c5Ihsgy Juan DO Work Phone: [facility] HospitalVshxzhyier42-41-2444 09:10-0400Body aalnyo312.12 kgCorey Juan DO Work Phone: [facility] HospitalRnyigvkwcf94-94-4500 09:10-0400Diastolic blood atrffwfl80 mm[Hg]Les Juan DO Work Phone: [facility] HospitalIvrherwqqw70-06-2312 09:10-0400Systolic blood dcjeikli934 mm[Hg]Les Juan DO Work Phone: [facility] HospitalWcxuwqchau22-80-9886 11:28-0400Body mass index (BMI) [Ratio]31.24 kg/h5Tiqwu Juan DO Work Phone: [facility] HospitalNyryimevlc69-81-6643 11:28-0400Body yfmgia885.61 kgCorey Juan DO Work Phone: [facility] HospitalMxyuqowpkr79-98-1573 11:28-0400Diastolic blood taqxvaha72 mm[Hg]Les Juan DO Work Phone: [facility] HospitalPztmoitevr97-87-2646 11:28-0400Systolic blood pkygjneh583 mm[Hg]Les Juan DO Work Phone: [facility] HospitalMgaqabmmme75-21-7392 13:34-0400Diastolic blood mm[Hg]Amanda Logan FIBERGLASS TECHNICIAN Work Phone: [facility]07-03-2025 13:34-0400 Heart rate60 /Juan Pablo Logan FIBERGLASS TECHNICIAN Work Phone: [phone]07-03-2025 13:34-0400 Respiratory rate18 /Jhonnyaicha Ford FIBERGLASS TECHNICIAN Work Phone: [phone]07-03-2025 13:34-0400 SaO2% (BldA) [Mass fraction]99 %Amanda Logan FIBERGLASS TECHNICIAN Work Phone: [phone]07-03-2025 13:34-0400 Systolic blood hendtoxe005 mm[Hg]Amanda Shethbilly FIBERGLASS TECHNICIAN Work Phone: [phone] [place], [place] 9406607-03-2025 10:38-0400 Body qhuovx185.34 cmAmanda Shethbilly FIBERGLASS TECHNICIAN Work Phone: [phone]07-03-2025 10:38-0400 Body zpvqpgcksny59.1 [degF]Amanda Shethbilly FIBERGLASS TECHNICIAN Work Phone: [phone]07-03-2025 10:38-0400 Body .85 kgAmanda Shethbilly FIBERGLASS TECHNICIAN Work Phone: [phone]06-05-2025 15:06-0400 Body mass index (BMI) [Ratio]31.24 kg/m2[facility]06-05-2025 15:06-0400Body uhsmkv692.61 kgHarry S. [facility]' Hospital06-05-2025 15:06-0400 Diastolic blood wkcavqab02 mm[Hg][facility]06-05-2025 15:06-0400 Systolic blood xwmigzan355 mm[Hg][facility]05-07-2025 10:04-0400 Body suyvir072.3 Kam Sinclair MD Work Phone: [phone]05-07-2025 10:04-0400Body mass index (BMI) [Ratio]29.99 kg/t9OpokyDarleen Sinclair MD Work Phone: [phone] [place], [place] 9225605-07-2025 10:04-0400Body sxefos36.52 kgDarleen Sinclair MD Work Phone: [phone] [place], [place] 9225605-07-2025 10:04-0400Diastolic blood seyckylw42 mm[Hg]Darleen Sinclair MD Work Phone: [phone] [place], [place] 92[address]605-07-2025 10:04-0400Heart rate67 /min Darleen Sinclair MD Work Phone: [phone] [place], [place] 92[address]605-07-2025 10:04-0400Respiratory rate16 /minDarleen Sinclair MD Work Phone: [phone] [place], [place] 92[address]605-07-2025 10:04-0102OrC2% (BldA) [Mass fraction]99 %Darleen Sinclair MD Work Phone: [phone])[address] [place], [place] 92[address]605-07-2025 10:04-0400Systolic blood mm[Hg]Darleen Sinclair MD Work Phone: [phone] [place], [place] [address]01-09-2025 08:32-0500Body .34 cmPrem[facility]01-09-2025 08:32-0500Body mass index (BMI) [Ratio]30.4 kg/c7TtkdnpuswPrem[facility] Health [facility]01-09-2025 08:32-0500Body uambftyvupl05.3 [degF][facility]01-09-2025 08:32-0500Body dacbov62.99 kgPrem[facility] Health [facility]01-09-2025 08:32-0500Diastolic blood mm[Hg][facility]01-09-2025 08:32-0500 Heart rate73 /minPremier Health [facility]01-09-2025 08:32-7598VgZ3% (BldA) [Mass fraction]98 %[facility]01-09-2025 08:32-0500 Systolic blood pmbjqtat742 mm[Hg][facility]11-12-2024 14:03-0500Body dzquuc177.3 cmIgnacio Guy MD Work Phone: [phone] HospitalVknfgr25-87-8285 14:03-0500Body mass index (BMI) [Ratio]30.23 kg/p4TdarqrIgnacio Guy MD Work Phone: [facility] Zykjjn17-96-0932 14:03-0500Body mmkitx15.3 kgIgnacio Guy MD Work Phone: [facility] Phdzll91-02-7498 15:12-0500Body mass index (BMI) [Ratio]31.71 kg/h4Onigq Juan DO Work Phone: [facility] HospitalQebperopzq44-70-2569 15:12-0500Body ikcpwu306.25 kgCorey Juan DO Work Phone: [facility] HospitalYnmzsparaf06-59-3518 15:12-0500Diastolic blood feebpizf87 mm[Hg]Les Juan DO Work Phone: [facility]' HospitalIwfikhwqzf63-47-1201 15:12-0500Systolic blood htardngh777 mm[Hg]Les Juan DO Work Phone: [facility]' HospitalMmefhvepzb50-04-6347 11:46-0400Diastolic blood oueypolf67 mm[Hg]MELY Ford Work Phone: [facility]08-21-2024 11:46-0400 Heart rate76 /minAPRTanja Ford Work Phone: [facility]08-21-2024 11:46-0400 Respiratory rate16 /minAPRTanja Ford Work Phone: [facility]08-21-2024 11:46-0400 SaO2% (BldA) [Mass fraction]99 %MELY Ford Work Phone: [facility]08-21-2024 11:46-0400 Systolic blood mm[Hg]MELY Ford Work Phone: [phone]08-21-2024 10:20-0400 Body beyrmesikai05 [degF]MELY Ford Work Phone: [phone]08-21-2024 09:55-0400 Inhaled oxygen flow rate3 L/minMELY Ford Work Phone: [phone]08-21-2024 06:29-0400 Body .34 Justo Hahnr Work Phone: [phone]08-21-2024 06:29-0400 Body .25 kgMELY Hahnr Work Phone: [phone]07-16-2024 11:56-0400 Body xuouqf446.34 Justo Hahnr Work Phone: [phone]07-16-2024 11:56-0400 Body mass index (BMI) [Ratio]28.8 kg/m2MELY Hahnr Work Phone: [phone]07-16-2024 11:56-0400 Body pnipnp98.89 kgMELY Hahnr Work Phone: [phone] [place], [place] 9406602-21-2024 14:56-0500 Body nvujke491.34 cmPrem[facility]02-21-2024 14:56-0500Body mass index (BMI) [Ratio]29.4 kg/p4XvbuuriipPremier Health [facility]02-21-2024 14:56-0500Body dyccnj31.7 kgPrem[facility] Health [facility]02-21-2024 14:56-0500Diastolic blood mm[Hg][facility] 06-08-2023 14:56-0500Heart rate51 /minPremier Health [facility] 06-08-2023 14:56-7889AxI3% (BldA) [Mass fraction]98 %[facility]02-21-2024 14:56-0500Systolic blood rquycqih625 mm[Hg][facility]01-30-2024 14:30-0500Body kgfiia034.34 cmGuillepamela Millerley Other [facility]01-30-2024 14:30-0500 Body mass index (BMI) [Ratio]27.47 kg/u1VvznmRomeo Santana Other [employer] Other 01-30-2024 14:30-0500Body wfgehg77.36 kgGuillepamela Esther Other [employer] Other 01-30-2024 14:30-0500Body gqsxeq20.35 kgPremier Health [facility]10-23-2023 14:30-0400Body gyngmd531.34 cmPetr Lay Other [employer] Other 10-23-2023 14:30-0400Body mass index (BMI) [Ratio] 27.61 kg/k6OmqpcwfPetr Lay Other [employer] Other 10-23-2023 14:30-0400Body vokzwwpkofu41.1 [degF] Petr Lay Other [employer] Other 10-23-2023 14:30-0400Body .81 kgPetr Lay Other [employer] Other 10-23-2023 14:30-0400Diastolic blood draajisa66 mm[Hg] Petr Lay Other [employer] Other 10-23-2023 14:30-6383VeX3% (BldA) [Mass fraction]99 % Petr Lay Other [employer] Other 10-23-2023 14:30-0400Systolic blood wkyovgxj395 mm[Hg] Petr Lay Other [employer] Other 09-11-2023 11:30-0400Body lkdnuq956.34 cmMajose guadalupe Lay Other [employer] Other 09-11-2023 11:30-0400Body mass index (BMI) [Ratio] 28.03 kg/w5BixibwdPetr Lay Other [employer] Other 09-11-2023 11:30-0400Body fhgigo97.17 kgMajose guadalupe Lay Other [employer] Other 09-11-2023 11:30-0400Diastolic blood yzxyedki66 mm[Hg] Petr Lay Other [employer] Other 09-11-2023 11:30-0400Respiratory rate18 /minMattnany Lay Other [employer] Other 09-11-2023 11:30-3566VqW1% (BldA) [Mass fraction]99 % Petr Lay Other [employer] Other 09-11-2023 11:30-0400Systolic blood ypoluafo914 mm[Hg] Petr Lay Other [employer] Other 06-26-2023 13:30-0400Body ijjpeh514.34 cmMajose guadalupe Lay Other [employer] Other 06-26-2023 13:30-0400Body mass index (BMI) [Ratio] 28.78 kg/l7TwwbvodPetr Lay Other [employer] Other 06-26-2023 13:30-0400Body yzypwx57.62 kgPetr Lay Other [employer] Other 06-26-2023 13:30-0400Diastolic blood scnlmwac18 mm[Hg] Petr Lay Other [employer] Other 06-26-2023 13:30-0400Respiratory rate18 /minPetr Lay Other [employer] Other 06-26-2023 13:30-2040OaX7% (BldA) [Mass fraction]98 % Petr Lay Other [employer] Other 06-26-2023 13:30-0400Systolic blood eyoognad099 mm[Hg] Petr Lay Other [employer] Other 06-15-2023 08:00-0400Body ebwxpv634.34 cmJephamifer Merylrbacher Other [employer] Other 06-15-2023 08:00-0400Body mass index (BMI) [Ratio] 28.03 kg/v1Stcixkxc Rohrbacher Other [employer] Other 06-15-2023 08:00-0400Body tmnkal82.17 kgJephamifer Rohrbacher Other [employer] Other 06-15-2023 08:00-0400Diastolic blood mazjmucz54 mm[Hg] Amanda Rosarioacher Other [employer] Other 06-15-2023 08:00-7424QdE9% (BldA) [Mass fraction]95 % Amanda Jovanir Other [employer] Other 06-15-2023 08:00-0400Systolic blood gfrrmben349 mm[Hg] Amanda Jovanir Other [employer] Other 05-10-2023 15:30-0400Body hywkvy328.34 cmAmanda Merylrbacher Other [employer] Other 05-10-2023 15:30-0400Body mass index (BMI) [Ratio] 29.15 kg/a4Tvrhurfo Merylrbacher Other [employer] Other 05-10-2023 15:30-0400Body qpazvj11.8 kgAmanda Merylrbacher Other [employer] Other 05-10-2023 15:30-0400Diastolic blood yiptllre81 mm[Hg] Amanda Rosarioacher Other [employer] Other 05-10-2023 15:30-0400Systolic blood kppoaoes406 mm[Hg] Amanda Merylrbacher Other [employer] Other 05-05-2023 11:00-0400Body .34 cmAmanda Shethrbacher Other [employer] Other 05-05-2023 11:00-0400Body mass index (BMI) [Ratio] 28.73 kg/k5EkltralxAmanda Ford Other [employer] Other 05-05-2023 11:00-0400Body .44 kgAmanda Ford Other [employer] Other 05-05-2023 11:00-0400Diastolic blood mm[Hg] Amanda Shethbilly Other [employer] Other 05-05-2023 11:00-1403FmE6% (BldA) [Mass fraction]100 % Amanda Logan Other [employer] Other 05-05-2023 11:00-0400Systolic blood epvspwcd757 mm[Hg] Amanda Logan Other [employer] Other 02-24-2023 16:43-0500Body mhmvziafple02.1 [degF]MD Mariam Appiah Work Phone: [facility]02-24-2023 16:43-0500 Diastolic blood rxksxacw42 mm[Hg]MD Mariam Appiah Work Phone: [facility]02-24-2023 16:43-0500 Heart rate60 /minMD Mariam Appiah Work Phone: [facility]02-24-2023 16:43-0500 Respiratory rate16 /minMD Mariam Appiah Work Phone: [facility]02-24-2023 16:43-0500 SaO2% (BldA) [Mass fraction]100 %MD Mariam Appiah Work Phone: 1(743)[address] [place], [place] 2783102-24-2023 16:43-0500 Systolic blood koeriocy458 mm[Hg]MD Mariam Appiah Work Phone: 1(350)[address] [place], [place] 2783102-24-2023 09:40-0500 Body bzuyir943.34 cmMD Mariam Appiah Work Phone: 1(789)[address] [place], [place] 2783102-24-2023 05:42-0500 Body sedvsd80 kgMD Mariam Appiah Work Phone: 1(702)[address] [place], [place] 2783102-23-2023 17:55-0500 Body uxznyzyldxw87.1 [degF]MD Mariam Appiah Work Phone: 1(087)[address] [place], [place] 2783102-23-2023 17:55-0500 Diastolic blood ezzkfvyr41 mm[Hg]MD Mariam Appiah Work Phone: 1(186)[address] [place], [place] 2783102-23-2023 17:55-0500 Heart rate62 /minMD Mariam Appiah Work Phone: 1(264)[address] [place], [place] 2783102-23-2023 17:55-0500 Respiratory rate18 /minMD Mariam Appiah Work Phone: 1(676)[address] [place], [place] 2783102-23-2023 17:55-0500 SaO2% (BldA) [Mass fraction]100 %MD Mariam Appiah Work Phone: 1(283)[address] [place], [place] 2783102-23-2023 17:55-0500 Systolic blood tylfceqg295 mm[Hg]MD Mariam Appiah Work Phone: 1(555)[address] [place], [place] 2783102-23-2023 14:22-0500 Body zvlsap629.34 cmMD Mariam Appiah Work Phone: 1(377)[address] [place], [place] 2783102-23-2023 14:22-0500 Body .7 kgMD Mariam Appiah Work Phone: 1(504)[address] [place], [place] 2783101-04-2023 15:00-0500 Body rtluec462.34 cmAmanda Ponceacher Other [employer] Other 01-04-2023 15:00-0500Body mass index (BMI) [Ratio] 27.81 kg/k3BjqkawgfAmanda Shethbilly Other [employer] Other 01-04-2023 15:00-0500Body blcejlbddcx16.2 [degF] Amanda Logan Other [employer] Other 01-04-2023 15:00-0500Body fbgfte96.45 kgAmanda Shethsarahachenikkie Other [employer] Other 01-04-2023 15:00-0500Diastolic blood qxavlsec98 mm[Hg] Amanda Logan Other [employer] Other 01-04-2023 15:00-0500Respiratory rate18 /minAmanda Shethbilly Other [employer] Other 01-04-2023 15:00-0153BbI9% (BldA) [Mass fraction]99 % Amandarufino Ford Other [employer] Other 01-04-2023 15:00-0500Systolic blood loqyuteb722 mm[Hg] Amanda Ford Other [employer] Other 12-24-2022 21:41-0500Diastolic blood ucfscfjj34 mm[Hg] MD Mariam Appiah Work Phone: [facility]12-24-2022 21:41-0500 Systolic blood jvygluvv087 mm[Hg]MD Mariam Appiah Work Phone: 1(845)[address] [place], [place] 2783112-24-2022 18:14-0500 Body iowypc148.34 cmMD Mariam Appiah Work Phone: 1(859)[address] [place], [place] 2783112-24-2022 18:14-0500 Body jozfbyrkfpe26.1 [degF]MD Mariam Appiah Work Phone: 1(045)[address] [place], [place] 2783112-24-2022 18:14-0500 Body kfapqv38 kgMD Mariam Appiah Work Phone: 1(503)[address] [place], [place] 2783112-24-2022 18:14-0500 Heart qlxk491 /minMD Mariam Appiah Work Phone: 1(412)[address] [place], [place] 2783112-24-2022 18:14-0500 Respiratory rate18 /minMD Mariam Appiah Work Phone: 1(255)[address] [place], [place] 2783112-24-2022 18:14-0500 SaO2% (BldA) [Mass fraction]100 %MD Mariam Appiah Work Phone: 1(568)[address] [place], [place] 2783112-22-2022 17:15-0500 Body ljgwkuoeoqv57.5 [degF]MD Mariam Appiah Work Phone: 1(928)[address] [place], [place] 2783112-22-2022 17:15-0500 Diastolic blood vkqlahyg42 mm[Hg]MD Mariam Appiah Work Phone: 1(669)[address] [place], [place] 2783112-22-2022 17:15-0500 Heart rate59 /minMD Mariam Appiah Work Phone: 1(862)[address] [place], [place] 2783112-22-2022 17:15-0500 Respiratory rate18 /minMD Mariam Appiah Work Phone: 1(109)[address] [place], [place] 2783112-22-2022 17:15-0500 SaO2% (BldA) [Mass fraction]100 %MD Mariam Appiah Work Phone: 1(920)[address] [place] [address] Ekfcci43-02-6943 17:15-0500 Systolic blood mm[Hg]MD Mariam Appiah Work Phone: [facility]12-22-2022 14:33-0500 Body lmlvek477.34 cmMD Mariam Appiah Work Phone: [facility]12-22-2022 14:33-0500 Body regbrc71.1 kgMD Mariam Appiah Work Phone: [facility]12-06-2022 15:30-0500 Body ffttaz884.34 cmAmanda Shethrbacher Other [employer] Other 12-06-2022 15:30-0500Body mass index (BMI) [Ratio] 27.05 kg/w3EuwrifihAmanda Ponceacher Other [employer] Other 12-06-2022 15:30-0500Body nhdquy24 kgJeaicha Merylrbacher Other [employer] Other 12-06-2022 15:30-0500Diastolic blood mm[Hg] Amanda Ford Other [employer] Other 12-06-2022 15:30-9792PjK9% (BldA) [Mass fraction]98 % Amanda Ford Other [employer] Other 12-06-2022 15:30-0500Systolic blood njuhoosd980 mm[Hg] Amanda Ford Other [employer] Other 10-24-2022 10:00-0400Body bglawp895.34 cmAmanda Shethrbacher Other [facility] [employer] Other 10-24-2022 10:00-0400Body mass index (BMI) [Ratio] 27.47 kg/r7TnjjxwifAmanda Ford Other [facility] [employer] Other 10-24-2022 10:00-0400Body .36 kgAmanda Shethsarahangelnikkie Other [facility] [employer] Other 10-24-2022 10:00-0400Diastolic blood gemthwku85 mm[Hg] Amanda Logan Other [facility] [employer] Other 10-24-2022 10:00-0400Systolic blood ndpytzcc204 mm[Hg] Amanda Logan Other [place] [employer] Other 05-17-2022 14:38-0400Blood Pressure LocationSamir Thompson [facility]05-17-2022 14:38-0400 Diastolic blood eowsxhgz39 mm[Hg]Samir Thompson [facility]05-17-2022 14:38-0400Heart rate61 /minSamir Thompson [facility]05-17-2022 14:38-0400 Respiratory rate18 /minSamir Thompson [facility]05-17-2022 14:38-0001IfP7% (BldA) [Mass fraction]100 %Samir Thompson [facility]05-17-2022 14:38-0400 Systolic blood uqlotazl611 mm[Hg]Samir hTompson [facility]04-08-2022 14:39-0400Blood Pressure LocationSamir Thompson [facility]04-08-2022 14:39-0400 Diastolic blood unydkeph42 mm[Hg]Samir Thompson [facility]04-08-2022 14:39-0400Heart rate65 /minRogean Jay [facility]04-08-2022 14:39-0400 Respiratory rate18 /minSamir [facility]04-08-2022 14:39-7876BjB1% (BldA) [Mass fraction]100 %Samir Thompson [facility]04-08-2022 14:39-0400 Systolic blood yhuutecm956 mm[Hg]Samir Thompson [facility]03-31-2022 11:00-0400Body snexjm182.34 cmArtemioaicha Ponceachenikkie Other [employer] Other 03-31-2022 11:00-0400Body mass index (BMI) [Ratio] 29.15 kg/y0DjlkwpkaAmanda Hahnr Other [employer] Other 03-31-2022 11:00-0400Body hgmoij72.8 kgAmanda Ponceacher Other [employer] Other 03-31-2022 11:00-0400Diastolic blood xrfdqrih95 mm[Hg] Amanda Ford Other [employer] Other 03-31-2022 11:00-5102YmK7% (BldA) [Mass fraction]98 % Amanda Ford Other [employer] Other 03-31-2022 11:00-0400Systolic blood zlmxxnxu605 mm[Hg] Amanda Ford Other [employer] Other 01-21-2021 08:20-0500Body Fbercnjcwxi44.7 [degF] [facility], TM81-43-3207 08:20-0500BP Rfcqzbysw79 mm[Hg] [facility], AJ49-53-3998 08:20-0500BP Hhfopref036 mm[Hg] [facility], KI79-76-7074 08:20-0500Pulse (Heart Rate)101 /minTennova [facility] [place], MG75-89-8230 08:20-0500Pulse Xaggqhyq80 % [facility], QU39-94-7232 08:20-0500Respiratory Rate19 /min [facility], VA24-66-3390 08:51-0500BMI (Body Mass Index) 58.86 kg/i6YxkdjzeTennova Healthcare [place], PQ54-58-0081 08:51-0500Body weight 191.42 kgTennova Healthcare [place], CY68-05-6246 08:51-4118Kvcdhb655.3 cm [facility], OR24-20-3394 13:30-0500BMI (Body Mass Index) 61.79 kg/m2[address], IU23-33-8306 13:30-0500Body Adfociodroq56.11 [degF][address], DR21-24-3847 13:30-0500Body mzrumv474.94 kgStvz 2 [facility], TI95-03-1484 13:30-0500BP Ahrqmdeyi37 mm[Hg][address], XB32-16-7316 13:30-0500BP Ntcxqnci118 mm[Hg]Stv[address] [place] [address], LP24-03-7663 13:30-9896Cngwne922.[address] [place] [address], ND18-85-5328 13:30-0500Pulse (Heart Rate)104 /minStvz [address] [place] [address], JL31-49-8698 13:30-0500Pulse Stytpadm49 %Stvz [address] [place] [address], GF75-26-7468 13:30-0500 Respiratory Rate18 /minStvz [address] [place] [address], [place] Encounters Encounter DateEncounter TypeCare ProviderFacilityStart: 02-26-2025 End: 52-57-7712Yadlbbtbl Result EncounterCorey Juan DO Work Phone: noms External Department UnsolicitedStart: 02-26-2025 End: 59-04-1132Slelqubvk Result EncounterCorey Juan DO Work Phone: noms External Department UnsolicitedStart: 02-19-2025 End: 23-19-2332Wxoakp flowsheetCorey Juan DO Work Phone: [facility] [place] [facility]Start: 02-19-2025 End: 00-57-5287Cedlyl flowsheetCorey Juan DO Work Phone: noms [facility]YNStart: 02-19-2025 End: 32-62-1948Qjfzmolnk Result EncounterCorey Juan DO Work Phone: noms External Department UnsolicitedStart: 02-19-2025 End: 95-58-1912rzuwliqmiyYBCUF FAZIONot AvailableStart: 02-19-2025 End: 16-41-6691Ykceuq outpatient visit 15 minutesCorey Juan DO Work Phone: noms [place] OBGYNComment on above:Third trimester ([facility]); 31 weeks gestation of ([facility]); TSH (thyroid-stimulating hormone deficiency); H/O gastric sleeveStart: 02-07-2025 End: 16-25-4584CzesfnMolly Whitaker Women's Services 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 Kettle Worker - Emily WarrensburgComment on above:Hypothyroidism affecting in second trimester (Primary Dx); headache in second trimester; Previous gastric bypass affecting , antepartum; 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Start: 02-06-2025 End: 48-66-0417Jyjnaz outpatient visit 15 minutesJojo OGDEN Work Phone: [facility]BGYNComment on above:Third trimester ([facility]); 29 weeks gestation of ([facility])Start: 02-06-2025 End: 42-20-2866cxdyvyzbfoSER RAMEYNot AvailableStart: 02-06-2025 End: 65-98-2549Dzfuug Shakeel OGDEN Work Phone: [facility] [place] [facility]YNStart: 02-06-2025 End: 15-17-3793Yggfjz Shakeel OGDEN Work Phone: [facility] [place] [facility]BGYNStart: 01-30-2025 End: 71-94-0224ljwrzbljcgNRCVBOSQ TONYERMalgorzata AvailableStart: 01-16-2025 End: 49-53-6524Ffwhac Eliecer Duenas RESPIRATORY CARE PROGRAM DIRECTOR Work Phone: [facility] [place]BGYNStart: 01-16-2025 End: 10-96-6108Swryxh Eliecer Duenas RESPIRATORY CARE PROGRAM DIRECTOR Work Phone: [facility] [place] [facility]BGYNStart: 01-16-2025 End: 39-44-6598Sfgzfm outpatient visit 15 minutesMima Duenas NP Work Phone: [facility] OBGYNComment on above:26 weeks gestation of ([facility]); Second trimester ([facility]); TSH (thyroid-stimulating hormone deficiency)Start: 01-16-2025 End: 76-62-0717jdkzbrtqqjMPQXKGYN EBERLYNot AvailableStart: 01-11-2025 End: 85-97-2415Jpjxmjbxf Result EncounterCorey Juan DO Work Phone: noms External Department UnsolicitedStart: 01-11-2025 End: 44-35-4090Jmjozdutj Result EncounterCorey Juan DO Work Phone: noms External Department UnsolicitedStart: 01-09-2025 End: 81-26-3173Xfsxcnkcw Result EncounterAmy Kwaku OGDEN Work Phone: noms External Department UnsolicitedStart: 01-09-2025 End: 18-32-5669Sigvxipeu Result EncounterAmy Kwaku OGDEN Work Phone: noms External Department UnsolicitedStart: 01-04-2025 End: 19-59-1171Ovmokd Rosanna Dick RNMaternal- Medicine at [facility] HospitalComment on above:Previous gastric bypass affecting , antepartum (Primary Dx); Hypothyroidism affecting in second trimester; 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 ([facility]); Obesity affecting in second trimester, unspecified obesity typeStart: 01-03-2025 End: 76-60-9650whcybmykniJJ PCP NO [facility] Ambulatory PPGStart: 01-03-2025 End: 20-98-9678Ojlbdcmvx encounterRosyln Griffin RNMaternal Medicine [facility] HealthtonStart: 12-19-2024 End: 12-44-6066Mfcnjf flowsheetJojo OGDEN Work Phone: [facility] [place] [facility]BGYNStart: 12-19-2024 End: 93-24-6964Fjysvy flowsheetJojo OGDEN Work Phone: [facility]BGYNStart: 12-19-2024 End: 34-11-9474Pdwasn outpatient visit 15 minutesJojo OGDEN Work Phone: [facility] OBGYNComment on above:22 weeks gestation of ([facility]); Second trimester ([facility]); Thyroid disease ; H/O gastric sleeve; H/O iron deficiency anemia; Diabetes mellitus screeningStart: 12-19-2024 End: 93-41-1605xbgwpjxqleLDX RAMEYNot AvailableStart: 12-15-2024 End: 64-50-8868Dzbjpkxjr Result EncounterCorey Juan DO Work Phone: noms External Department UnsolicitedStart: 12-15-2024 End: 31-04-3631Auxrdixoj Result EncounterCorey Juan DO Work Phone: noms External Department UnsolicitedStart: 12-05-2024 End: 91-88-2053Keurrn consultation new/estab patient [address] Lindquist MD Work Phone: [phone]-Fvzfp Medicine at [facility] Comment on above:20 weeks gestation of (Primary Dx); Previous gastric bypass affecting , antepartum; Obesity affecting in second trimester, unspecified obesity type; Hypothyroidism affecting in second trimester; 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 ([facility]); headache in second trimesterStart: 12-05-2024 End: 40-66-9624Jgboqj OnlyChiquita Shen RNMaternal- Medicine at [facility] HospitalComment on above:Previous gastric bypass affecting , antepartum (Primary Dx); Hypothyroidism affecting in second trimester; 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 ([facility]); Obesity affecting in second trimester, unspecified obesity type; Encounter for supervision of resulting from assisted reproductive technology, antepartumStart: 12-04-2024 End: 26-73-9242lxoxcdwygiYLVMP FAZIONot AvailableStart: 12-02-2024 End: 95-92-5916Jdfbqmn encounter procedureRichard A Visci DO-[address] [employer] - O/P Start: 12-02-2024 End: 32-29-6531mbmkpotraoQwvbgqen Rohrbacher APRN Work Phone: [facility] Work Phone: Start: 12-02-2024 End: 92-49-4710Owaesocg Result EncounterRichard A Visci DO Work Phone: noms External Department UnsolicitedStart: 12-02-2024 End: 81-05-0526Sijakypt Result EncounterRichard A Visci DO Work Phone: [facility] External Department UnsolicitedStart: 12-01-2024 Non-patient / Non-visit([place]) Elizabeth MCDERMOTT-Located Within [facility] Work Phone: Start: 11-30-2024 End: 16-02-0691dvaqtmyfsiZrbuxqdt Rohrbacher FIBERGLASS TECHNICIAN Work Phone: [facility] Work Phone: Start: 11-30-2024 End: 19-90-0391Swivggtb ReferredChris Chapman DO-LAB Path Spec [facility] Start: 08-90-8350Ulz-patient / Non-visitChris Chapman DO-Located Within [facility] Work Phone: Start: 11-20-2024 End: 01-70-7703Bgpqpe flowsheetCorey Juan DO Work Phone: [facility]YNStart: 11-20-2024 End: 55-38-0589Ltlcgp flowsheetCorey Juan DO Work Phone: [facility] [place] [facility]YNStart: 11-20-2024 End: 97-94-4201Hqlzdzfbe Result EncounterCorey Juan DO Work Phone: noms External Department UnsolicitedStart: 11-20-2024 End: 58-95-8428Almqbgya Result EncounterCorey Juan DO Work Phone: noms External Department UnsolicitedStart: 11-20-2024 Non-patient / Non-visitCorey Juan-Located Within [facility] Work Phone: Start: 11-20-2024 End: 16-51-4424Uibsrsy encounter procedureCorey Juan DO Work Phone: noms HealthcareStart: 11-20-2024 End: 51-34-0859Uqrtjsti preventive med est patient 18-39 yrsCorey Juan DO Work Phone: n[facility] [place] OBGYNComment on above:Well woman exam with routine gynecological exam; Exposure to STD; Second trimester ([facility]); 18 weeks gestation of ([facility]); Need for maternal serum alpha-protein (MSAFP) screening ([facility]); Screening, , for anatomic survey ([facility]); Thyroid diseaseStart: 11-20-2024 End: 59-24-4261cwmzrbcdqzWPMFA FAZIONot AvailableStart: 20-18-0980Ani-patient / Non-visitArtemiofito Jayla Chapman DO-Located Within [facility] Work Phone: Start: 10-26-2024 End: 13-99-2737Hnkbly OnlyNot In System Ref ProvMaternal- Medicine at [facility] Administrationtart: 10-22-2024 End: 40-43-8360Adnygy outpatient visit 15 minutesCorey Juan DO Work Phone: noms BCP OBComment on above:13 weeks gestation of ([facility]); Second trimester ([facility]); Thyroid disease ; H/O gastric sleeve; H/O iron deficiency anemia; resulting from in vitro fertilization in first trimester ([facility]) Start: 10-22-2024 End: 56-55-7669uxqlejcpahSOIZW FAZIONot AvailableStart: 10-18-2024 End: 92-78-9679Tjmxwxmcj department patient visitAmanda Ford FIBERGLASS TECHNICIAN Work Phone: [phone]-Leujgnjkf Room Work Phone: Start: 10-10-2024 End: 69-97-9674Ogwbhmacl Result EncounterCorey Juan DO Work Phone: noms External Department UnsolicitedStart: 10-10-2024 End: 35-00-4013Mwtwltccm Result EncounterCorey Juan DO Work Phone: noms External Department UnsolicitedStart: 09-26-2024 End: 71-47-8766egkpofvelcScmnyxhn MerylrbacherFacility:[facility] HospitalStart: 09-20-2024 End: 99-17-7967Bytklb outpatient visit 5 minutesNoms Bcp Ob Juan NurseNOMS BCP OBComment on above:GA: 8o5bJchkz: 09-20-2024 End: 28-34-4742pjaehjoeteNHCBX SABBAGHNot AvailableStart: 09-03-2024 End: 18-71-8534Hnfcazk evaluation of patient and reportUs Tech 1 [facility] Rej Work Phone: Reproductive Endocrinology InfertilityComment on above:Early stage of ([facility])Start: 09-03-2024 End: 31-11-1768jvmrozmhgtTKTXGHL G MICKEYFacility:[facility] Start: 08-28-2024 End: 11-80-4284Hawnkdx evaluation of patient and reportUs Tech 2 [facility] Beac Work Phone: Reproductive Endocrinology InfertilityComment on above: resulting from assisted reproductive technology in first trimester ([facility])Start: 08-28-2024 End: 56-83-4863munkwwhyzwLTPLJKQ G MICKEYFacility:[facility] Start: 08-24-2024 End: 17-34-7898Nnwwtlaoz encounterLiliana G David FIBERGLASS TECHNICIAN.HIGH DENSITY PRESS LABORER Work Phone: Reproductive Endocrinology InfertilityComment on above:Patient QuestionStart: 08-23-2024 End: 31-07-7828Cvnuawdjd encounterLiliana G David FIBERGLASS TECHNICIAN.HIGH DENSITY PRESS LABORER Work Phone: Reproductive Endocrinology InfertilityComment on above:PainStart: 08-22-2024 End: 87-57-2484Vrnkfiforrest Sinclair MD Work Phone: noms ENDOCRINOLOGYStart: 08-22-2024 End: 98-14-2698Bknngvforrest Sinclair MD Work Phone: noms ENDOCRINOLOGYStart: 08-22-2024 End: 45-07-4828Pxhfcv outpatient visit 25 minutesDarleen Sinclair MD Work Phone: [facility] SH ENDOCRINOLOGYComment on above:Abnormal thyroid function test (Primary Dx); H/O gastric bypass; 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CMS/HCC); Vitamin D deficiencyStart: 08-22-2024 End: 20-75-1997nsxeqstvxxPVLJCSp Andrade AvailableStart: 08-20-2024 End: 22-76-6211Wkyacfaohysr consultation with [place] Hernandez APRN.HIGH DENSITY PRESS LABORER Work Phone: Reproductive Endocrinology InfertilityStart: 08-20-2024 End: 30-73-5089daejwklytiVafxcrf G Mickey FIBERGLASS TECHNICIAN.HIGH DENSITY PRESS LABORER Work Phone: Reproductive Endocrinology InfertilityComment on above: 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) (Primary Dx)Start: 08-18-2024 End: 64-78-0401tnfdiqmydeGijrvfe G Mickey FIBERGLASS TECHNICIAN.HIGH DENSITY PRESS LABORER Work Phone: Reproductive Endocrinology InfertilityComment on above:UltrasoundStart: 08-17-2024 End: 78-32-4792kczmhcnhmlMesocuvp RohrbacherFacility:[facility] HospitalStart: 08-16-2024 End: 52-37-5161Cpzcmedvw encounterLilimino Hernandez FIBERGLASS TECHNICIAN.HIGH DENSITY PRESS LABORER Work Phone: Reproductive Endocrinology InfertilityComment on above:positive for pregnancyStart: 08-15-2024 End: 56-26-2162Zylqctyun encounterLilimino Hernandez FIBERGLASS TECHNICIAN.HIGH DENSITY PRESS LABORER Work Phone: Reproductive Endocrinology InfertilityComment on above:Patient QuestionStart: 08-15-2024 End: 19-92-6596awruzpmrleEfydadd G MickeyFacility:[facility] HospitalStart: 08-13-2024 End: 47-52-8853thregldmctJqfmmme G MickeyFacility:[facility] HospitalStart: 07-31-2024 End: 81-02-1457wsiawmkydnIBDVJqoieyrt:[facility] HospitalStart: 07-31-2024 End: 10-06-6001Bitadjn encounter procedureAndrology Title Abstractor Work Phone: [facility] Andrology LaboratoryComment on above: Procreative management (Primary Dx)Start: 07-30-2024 End: 27-90-9391Jbvkuovxz encounterMelodie Hernandez FIBERGLASS TECHNICIAN.HIGH DENSITY PRESS LABORER Work Phone: Reproductive Endocrinology InfertilityComment on above:Patient QuestionStart: 07-25-2024 End: 06-77-3581ktgfzghormJAPHIfyzhozj:[facility] HospitalStart: 07-07-2024 End: 78-30-2990brpzsdmtblTSRFEFFY TANTIBHEDHYANGKULFacility:[facility] Hospitaltart: 07-07-2024 End: 03-13-0516Peykwqo encounter procedureAndrology Title Abstractor Work Phone: [facility] Andrology LaboratoryComment on above: Procreative management (Primary Dx)Encounter for artificial insemination (Primary Dx)Start: 07-06-2024 End: 78-13-5410Nvrbjsnkz encounterMelodie Hernandez FIBERGLASS TECHNICIAN.HIGH DENSITY PRESS LABORER Work Phone: Reproductive Endocrinology InfertilityComment on above:Patient calling back/re iui 07/07 unsureStart: 07-05-2024 End: 76-70-6441Zzmskxpfg encounterIgnacio Guy MD Work Phone: reproductive Endocrinology InfertilityComment on above:re iui this wknd/has cervical polyp questionStart: 07-04-2024 End: 13-56-7540Mkiyxioiw encounterMelodie Hernandez FIBERGLASS TECHNICIAN.HIGH DENSITY PRESS LABORER Work Phone: Reproductive Endocrinology InfertilityComment on above:Treatment PlanningStart: 07-04-2024 End: 09-26-3220biqvjnseagWbiprzg G Mickey FIBERGLASS TECHNICIAN.HIGH DENSITY PRESS LABORER Work Phone: Reproductive Endocrinology InfertilityComment on above:OvulatingStart: 07-04-2024 End: 46-11-2471Rtwvtad encounter procedureUs Tech 3 [facility] Beac Work Phone: Reproductive Endocrinology InfertilityStart: 07-02-2024 End: 66-03-2164cngywmpxqbQLECJOM MICKEYFacility:[facility] HospitalStart: 06-29-2024 End: 09-05-7291mprididscnVFCBMCM MICKEYFacility:[facility] HospitalStart: 06-23-2024 End: 20-75-5626balduweilvRltahsu G David FIBERGLASS TECHNICIAN.HIGH DENSITY PRESS LABORER Work Phone: Reproductive Endocrinology InfertilityComment on above:Negative test and possible hematomaStart: 06-09-2024 End: 36-01-9305znwzxgrdsxICTCAE ATTARANFacility:[facility] HospitalStart: 06-09-2024 End: 27-01-8065Dnagonl encounter procedureAndrology Title Abstractor Work Phone: [facility] Andrology LaboratoryComment on above: Procreative management (Primary Dx)Female infertility (Primary Dx)Start: 06-05-2024 End: 58-92-7912uarlxejlhxEkxipim G David FIBERGLASS TECHNICIAN.HIGH DENSITY PRESS LABORER Work Phone: Reproductive Endocrinology InfertilityStart: 06-05-2024 End: 88-95-4276Cytvjkj encounter procedureLiliana G David FIBERGLASS TECHNICIAN.HIGH DENSITY PRESS LABORER Work Phone: Reproductive Endocrinology InfertilityComment on above:IUI appointmentStart: 05-22-2024 End: 71-44-2738fcxlsdxunbOvpgsok G David FIBERGLASS TECHNICIAN.HIGH DENSITY PRESS LABORER Work Phone: Reproductive Endocrinology InfertilityComment on above:Progesterone resultsStart: 05-21-2024 End: 86-45-9448bpkhdmqknrIubitqb G MickeyFacility:[facility] HospitalStart: 05-18-2024 End: 25-49-5226dyfqvopmgtYEFONFW MICKEYFacility:[facility] HospitalStart: 05-09-2024 End: 99-48-6212twyohyzzvoSvmsfmo G David FIBERGLASS TECHNICIAN.HIGH DENSITY PRESS LABORER Work Phone: Reproductive Endocrinology InfertilityComment on above:Reproductive mgmt, 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)Start: 05-09-2024 End: 56-87-6862Jscynptiursw consultation with [place] Hernandez APRN.CNP Work Phone: Reproductive Endocrinology InfertilityStart: 05-06-2024 End: 51-32-9793hwudngdhraYvonnjgBridget Hernandez APRN.HIGH DENSITY PRESS LABORER Work Phone: Reproductive Endocrinology InfertilityComment on above:Consent formStart: 05-02-2024 End: 68-77-8615Upwvzzejvjpl consultation with Rufino Enriquez PhD Work Phone: [facility] CenterComment on above:Bipolar 1 disorder (Multi) (Primary Dx); Infertility counselingStart: 05-02-2024 End: 55-45-2185iohokougofNQHZOO Nikole [facility] AmbulatoryStart: 04-26-2024 End: 48-91-4675zohaqsvmaiZbvxvcgqlFirelands [facility] Work Phone: Start: 04-26-2024 End: 55-30-2707Rftccwf encounter procedureCritical Access Hospital Physician [facility] Work Phone: Start: 04-24-2024 End: 44-61-1910jrsetpcaunWOLBQPZ MICKEYFacility:[facility] Hospitaltart: 04-23-2024 End: 50-69-1623xkitnalvveJxaokkvvsFirelands Regional [facility] Work Phone: Start: 04-23-2024 End: 05-65-2626Scdwugt encounter procedureCritical Access Hospital Physician [facility] Work Phone: Start: 04-02-2024 End: 27-45-8617pntskgcmeeScoortoBridget Hernandez APRN.HIGH DENSITY PRESS LABORER Work Phone: Reproductive Endocrinology InfertilityComment on above:Genetic testingStart: 03-09-2024 End: 63-54-8589gaxzqemyhvJvhmiiaSue Hernandez APRN.HIGH DENSITY PRESS LABORER Work Phone: Reproductive Endocrinology InfertilityComment on above:Reproductive mgmt, 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); Special screening examination for infectious diseases; Encounter for other genetic testing of female for procreative managementStart: 03-09-2024 End: 00-61-5761Rhmvnoakkhnr consultation with [place] Hernandez APRN.CNP Work Phone: Reproductive Endocrinology InfertilityStart: 02-29-2024 End: 80-23-4067zmvmzeerdySLRGYLR MICKEYFacility:[facility] Hospitaltart: 02-28-2024 End: 75-44-1553ayaqjxhtojYOGIFN ATTARANFacility:[facility] Hospitaltart: 02-28-2024 End: 25-16-3124Uwcbvnz encounter Ana Rosa Guy MD Work Phone: reproductive Endocrinology InfertilityComment on above: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)Start: 02-27-2024 End: 57-09-3120klneabfxjwNelpgxau Rohrbacher APRN Work Phone: [facility] Work Phone: Start: 02-27-2024 End: 09-77-4860Wsnveam encounter procedureAmanda Ford APRN Work Phone: [facility] Work Phone: Start: 16-71-8677Bnv-patient / Non-visitCritical Access Hospital Physician Group-Located [facility] Work Phone: Start: 02-20-2024 End: 38-78-0007Qnzvfez encounter procedureCorey Juan DO Work Phone: noMS HealthcareStart: 02-20-2024 End: 70-18-1726Abbdauau preventive med est patient 18-39 yrsCorey Juan DO Work Phone: noms BCP OBComment on above:Well woman exam with routine gynecological examStart: 02-20-2024 End: 48-18-7399Tjzfui flowsheetCorey Juan DO Work Phone: noms BCP OBStart: 02-20-2024 End: 88-75-1692Gwfjhf flowsheetCorey Jaun DO Work Phone: [facility] BCP OBStart: 02-20-2024 End: 20-20-1444Kbhcywihp Result EncounterCorey Juan DO Work Phone: [facility] External Department UnsolicitedStart: 01-17-2024 End: 60-01-9295etjaurbufwDFIW Jennifer Rohrbacher Work Phone: [facility] Work Phone: Start: 01-17-2024 End: 45-17-8915Dvfmqxo encounter procedureMELY Ford Work Phone: [facility] Work Phone: Start: 97-43-3565Tdg-patient / Non-visitAPRTanja Ford Work Phone: [facility] Work Phone: Start: 12-20-2023 End: 66-49-2913mzegnvdxeeESPG Jennifer Rohrbacher Work Phone: [facility] Work Phone: Start: 12-20-2023 End: 61-55-8425Auljkcx encounter procedureMELY Ford Work Phone: [facility] Work Phone: Start: 32-62-0227ybimxmwezzYsjbm Bailey [facility]: 44-49-6566Ded-patient / Non-visitAPRTanja Frod Work Phone: [facility] Work Phone: Start: 12-07-2023 End: 74-86-9345Zcyvagwcr to same day surgery centerMELY Ford Work Phone: [facility] HospitalStart: 12-07-2023 End: 69-79-6795pwexyltayoYJMEShima Ford Work Phone: [facility] Work Phone: Start: 12-01-2023 End: 48-44-2166pfetcdcwpnSOTT Jennifer Rohrbacher Work Phone: [facility] Work Phone: Start: 12-01-2023 End: 62-17-5376Ouruuok encounter procedureMELY Ford Work Phone: [facility] Work Phone: Start: 11-28-2023 End: 67-72-1040wsfqdmxfdnMEZOShima Ford Work Phone: [facility] Work Phone: Start: 11-28-2023 End: 11-23-0609Ribozpc encounter procedureMELY Ford Work Phone: [facility]-Pre-Surgical Testing Work Phone: Start: 11-02-2023 End: 24-46-3822Uitoicszh department patient visitAmanda Ford [facility]: 11-01-2023 End: 05-42-8546svufedhovtJSZFShima Ford Work Phone: [facility] Work Phone: Start: 11-01-2023 End: 82-09-7914Eekagdk encounter procedureMELY Ford Work Phone: [facility] Work Phone: Start: 10-26-2023 End: 67-21-6993ksoefcmvojVYKZ Jennifer Rohrbachenikkie Work Phone: [facility] Work Phone: Start: 10-26-2023 End: 97-45-1349Xuhupwu encounter procedureAPRTanja Patel Rosarioacher Work Phone: [facility]-EMG Work Phone: Start: 10-13-2023 End: 12-68-8556slfzbifczoTfjolikgl [facility] Work Phone: Start: 10-13-2023 End: 99-55-9780Zrcbzez encounter procedureChristoph Physician Group-[facility] Work Phone: Start: 81-83-3367Giz-patient / Non-visitChad Physician Group-[place] [employer] Work Phone: Start: 06-08-2023 End: 34-99-7226npcpevbzirLezlhkiuqFostoria City Hospital Work Phone: Start: 06-08-2023 End: 58-29-6870Chtpmne encounter procedureChad Physician Group-[facility] Work Phone: Start: 05-17-2023 End: 05-16-3095cjitcsbwnrCgxhnsbc Merylrbacher Other [employer] Other Start: 75-60-3912Brfyjw outpatient visit 15 minutes Romeo Bazzi OrthopedicsStart: 52-44-0777Wcbxhynya encounterJennifer RohrbacherFPG [facility] ClinicStart: 05-17-2023 End: 43-42-4229Cdcfrlh encounter procedureChad Physician Group-Start: 04-28-2023 End: 99-86-0082ljhcvpkdzaEssjtsdp Rohrbacher Other [employer] Other Start: 24-22-2218Cbxasjbei encounterJennifer RohrbacherFPG [facility] ClinicStart: 04-22-2023 End: 20-16-4136wnmscmobrpLxzjyhqc Rohrbacher Other [employer] Other Start: 15-97-1462Raaqiolhn encounterJennifer RohrbacherFPG [facility] ClinicStart: 04-19-2023 End: 43-84-9180oasszzwrbiZecmedgw Rohrbacher Other [employer] Other Start: 37-99-3719Ygewhqgww encounterJennifer RohrbacherFPG [facility] RoadStart: 04-14-2023 End: 52-93-5696azahmrduguRbvidsgj Rohrbacher Other [employer] Other Start: 72-04-6378Suqllzkpd encounterJeaicha RohrbacherFPG [facility] ClinicStart: 03-17-2023 End: 50-39-1576xojyiynncoJwbfh Bailey Other [employer] Other Start: 13-92-6764Ikciklyrt encounterRomeo Bazzi OrthopedicsStart: 02-07-2023 End: 50-11-6062qskxjbsjugUdvbslyc Rohrbacher Other [employer] Other Start: 70-15-8183Iltzhe outpatient visit 15 minutes [facility]r [facility] HealthuskyStart: 53-48-7127Tupbuvtrn encounter Amanda ShethrbacherFPG [facility] ClinicStart: 01-27-2023 End: 36-14-6337iwqtggukagBnokivui Rohrbacher Other [employer] Other Start: 27-91-1624Vnsagmsxo encounterJennifer RohrbacherFPG [facility] [place] ParkStart: 01-19-2023 End: 81-92-1336rlifmklvxsRkohzohw Rohrbacher Other [employer] Other Start: 61-32-8910Makxkfhuq encounterJennifer RohrbacherFPG [facility] ClinicStart: 01-13-2023 End: 81-05-1631ffzswrgcokKliggray Rohrbacher Other [employer] Other Start: 04-33-2851Xumamhmmx encounterJennifer RohrbacherFPG [facility] ClinicStart: 01-10-2023 End: 74-27-2752eazgbntvcyUsodjymz Rohrbacher Other [employer] Other Start: 39-45-8434Dthkzbpjv encounterJennifer RohrbacherFPG [facility] ClinicStart: 01-06-2023 End: 81-60-0800pzwwdqsbnsDsquellw Rohrbacher Other [employer] Other Start: 53-16-8060Feowsbxny encounterJennifer RohrbacherFPG [facility] ClinicStart: 12-27-2022 End: 60-70-8299ogvstzuomoItbkxqk Alireza Other [employer] Other Start: 79-33-8226Xpkfgd outpatient visit 15 minutes Petr [facility] [place]Start: 11-10-2022 End: 86-01-9612jcjkfhgvzlPgyxbfsh Rohrbacher Other [employer] Other Start: 89-22-5040Ijxqmvtlt encounterJennifer RohrbacherFPG [facility] [place]kyStart: 10-21-2022 End: 91-11-3974niolchnftrCkkqxzua Rohrbacher Other [employer] Other Start: 67-27-2663Uqppqpygz encounterJennifer John Family [facility] HospitalStart: 10-11-2022 End: 94-69-2383vgisxmuakdJlqiujv Widmer Other [employer] Other Start: 45-42-5317Vewvnb consultation new/estab patient 40 minMatthew BimerFPG [facility] [place]kyStart: 09-30-2022 End: 82-83-3737ukmqbnouxyGvmzqsnd Rohrbacher Other [employer] Other Start: 98-90-9762Zfhtkc outpatient visit 15 minutes Amanda RosarioangelDanika Family [facility] HospitalStart: 08-25-2022 End: 38-93-1890tperwljoutTdicaarc Rohrbacher Other [employer] Other Start: 73-17-5393Pdimuc outpatient visit 15 minutes Amanda ShethsarahangelDanika Family [facility] ErtonStart: 08-20-2022 End: 57-02-5386lrkpjpceijAnflgrka Rohrbacher Other [employer] Other Start: 65-92-3701Bnkdkh outpatient visit 15 minutes Amanda RosarioangelDanika Family [facility] ErtonStart: 07-19-2022 End: 02-59-2684fkdcpxadzzZbsecsoy Rohrbacher Other [employer] Other Start: 18-24-7169Hyhcoztdq encounterJennifer MerylrbacherF Family [facility] ErtonStart: 07-08-2022 End: 24-47-9547fcexfdqwmgXhpjhjxe Rohrbacher Other [employer] Other Start: 92-18-6919Itnxycjla encounterAmanda LopezMonmouth Medical CenterStart: 06-23-2022 End: 64-69-7615mwvzxlegtyMYGP Jennifer Rohrbacher Work Phone: [facility] Work Phone: Start: 06-23-2022 End: 90-53-7041Mheeiqe encounter procedureAPRTanja Ford Work Phone: [facility]-Lab [place] Work Phone: Start: 06-17-2022 End: 38-42-7528labahsmgtbDqmalref Rohrbacher Other [place] [employer] Other Start: 78-69-5699Eewlhcsmz encounterAmanda FordNocenterpoint medical center [facility] Clinicsrt: 06-16-2022 End: 81-02-1703mcteupptblSKFB Jennifer Rohrbacher Work Phone: [facility] Work Phone: Start: 06-16-2022 End: 70-60-9613Tnyqqwq encounter procedureAPRTanja Amandahina Ford Work Phone: [facility] [place] Work Phone: Start: 06-10-2022 End: 56-40-7764Nlukoxhsai and management of inpatientMD Mariam Appiah Work Phone: [facility] [place] [facility] Work Phone: Start: 32-38-2114uwutadbkyxr encounterMD Mariam Appiah Work Phone: [facility] Work Phone: Start: 06-09-2022 End: 67-88-7540ojkmxyhavnUB Mariam Appiah Work Phone: [facility] Work Phone: Start: 06-09-2022 End: 74-74-7192Lwhpygj encounter procedureMD Mariam Appiah Work Phone: [facility] [place] Work Phone: Start: 04-26-2022 End: 26-54-9451yimjigfafnFpcyuopt Rohrbacher Other [employer] Other Start: 76-42-6022Mpjautuym encounterArtemionnifer RosarioachenikkieSitefly [facility] Clinicsrt: 04-23-2022 End: 58-26-2881zcrnnbrgljWjubiouc Rohrbacher Other [employer] Other Start: 00-01-3969Feclngmsm encounterJennifer MerylrbacheCameron Regional Medical CenterCyber-Rainrt: 04-21-2022 End: 98-07-2947Zjeclawv ReferredMD Mariam Appiah Work Phone: [facility]-Lab [place] Work Phone: Start: 04-21-2022 End: 70-15-9951ibmcmqkqomAB Mariam Appiah Work Phone: [facility] Work Phone: Start: 65-22-4300Njstff outpatient visit 15 minutes Amanda LopezMonmouth Medical CenterStart: 04-20-2022 End: 06-24-3913juhmuhaxqnLyjmsxec Rohrbacher Other [employer] Other Start: 60-00-2748Grihxmmrd encounterAmanda ShethrbacherFMonmouth Medical CenterStart: 04-13-2022 End: 33-22-2356rpdwdnjaqzLebvxcsr Rohrbacher Other [employer] Other Start: 71-45-4743Nfwugbgjg encounterJennifer MerylrbacherNocenterpoint medical center [facility] Clinicsrt: 04-10-2022 End: 45-43-4178Wbkehillp department patient visitMD Mariam Appiah Work Phone: [facility]-Emergency Room Work Phone: Start: 04-08-2022 End: 69-26-2136Sqhnvzlmj department patient visitMD Mariam Appiah Work Phone: [facility]-Emergency Room Work Phone: Start: 03-30-2022 End: 76-84-9996cxphzwfjmlPloikzgx Rohrbacher Other [employer] Other Start: 76-43-3185Ngkeddrof encounterJennifer MerylrbacherFShriners Hospitals for Children [facility] [place] ClintonStart: 03-23-2022 End: 27-64-4263Tggamdx encounter procedureMD Mariam Appiah Work Phone: [facility] ClintonStart: 03-23-2022 End: 12-43-1990qxvwoeuuwgKjqdmzhr Rohrbacher Other [employer] Other Start: 11-80-4198Jeswxu outpatient visit 15 minutes Amanda Lopez [facility] ClintonStart: 03-17-2022 End: 44-06-7228yrqagvkistOlrjrgay Rohrbacher Other [employer] Other Start: 86-50-7521Bbryeqmli encounterJennifer MerylrbacherFPG Family [facility] ErtonStart: 02-08-2022 End: 88-60-1062xnqhxxifolRbzylazv Rohrbacher Other [employer] Other Start: 91-37-2993Famxzg outpatient visit 25 minutes Amanda LopezMonmouth Medical CenterStart: 09-01-2021 End: 46-09-9832Eqjhhkp encounter Afshan Thompson [facility] Start: 08-25-2021 End: 47-93-0832Wnhojsa encounter Afshan Thompson [facility] Start: 08-06-2021 End: 38-55-6366Fohrqao encounter Afshan Thompson [facility] Start: 07-24-2021 End: 78-43-2633Bowfiiv encounter Afshan Thompson [facility] Start: 07-23-2021 End: 97-98-5928istsbmlivsEsekvmro Rohrbacher Other [employer] Other Start: 06-34-1854Jbqpzvoop encounterAmanda FordWaverly Workle CoStart: 07-16-2021 End: 65-74-1597zdjejmukjhJijosuux Merylrbacher Other [employer] Other Start: 74-97-5070Qaebzw outpatient new 30 minutes Amanda LopezMonmouth Medical CenterStart: 03-30-2021 End: 80-39-8997Auevogdlo department patient visitMARIAM APPIAHTrumbull Regional Medical Centertart: 05-06-2020 End: 43-81-7041sdkdqwukgjYOQFUJJ R JOHNSKettering Memorial Hospital Start: 05-06-2020 End: 54-22-6139Mfzedyisri hospital visit by Magui Olivera Work Phone: stvz 2C Ortho/Med SurgComment on above:Post-op pain (Primary Dx)Start: 05-02-2020 End: 81-54-0356Vxsuvcu encounter procedureLU [facility]Start: 05-02-2020 End: 36-90-5250Bhkhisovyk hospital visit by physicianStcdoroteo Covid Screening ScheduleSTCZ Covid ScreeningComment on above:Pre-op testing (Primary Dx)Start: 04-22-2020 End: 39-02-2604ijdxqvcqbjRHWXEYSWilson Street Hospital Start: 04-22-2020 End: 25-30-6112gmhgzlgdcqUXSQFOVWilson Street Hospital Start: 04-22-2020 End: 05-62-6015Apzyvkbyps hospital visit by physicianSfatoumata C-Arm [address] [place] [address] RadiologyComment on above:ArrivedStart: 04-22-2020 End: 35-63-0048Rriuwauzrd hospital visit by physicianSraisa Pat 2STVZ Pre-Admit Testing Procedures DateProcedureProcedure DetailPerforming ClinicianStart: 65-36-6207HY OB BPP W NON-STRESSCorey Juan DO Work Phone: Start: 56-89-2183KND THYROID STIM HORMONECorey Juan DO Work Phone: Start: 83-26-3209Jhevx dip stick/tablet rgnt non-auto w/o micrscpCorey Juan DO Work Phone: Start: 74-07-3799Zdbwt dip stick/tablet rgnt non-auto w/o micrscpAmy Kwaku OGDEN Work Phone: Start: 14-85-6805Pjwie dip stick/tablet rgnt non-auto w/o micrscpMima Duenas NP Work Phone: Start: 58-54-7863NRN THYROID STIM HORMONECorey Juan DO Work Phone: Start: 57-91-6811UCD CBC WITH AUTO DIFFAmy Kwaku OGDEN Work Phone: Start: 88-36-3969TRWLCYP 1 HOURAmy Kwaku OGDEN Work Phone: Start: 97-38-7710Nbozx dip stick/tablet rgnt non-auto w/o micrscpAmy Kwaku OGDEN Work Phone: Start: 61-93-2793DQZ UA (CLEAN/CATCH) BUILD AND DEPLOYMENT ENGINEER/MICRO IF IND.Les Juan DO Work Phone: Start: 89-49-0845IGA URINE MICROSCOPIC ONLYCorey Juan DO Work Phone: Start: 24-00-1044Izjcr dip stick/tablet rgnt auto w/o microscopyRichard A Visci DO Work Phone: start: 86-85-8582PXEAROSBO VAGINITIS (HTRX)Les Juan DO Work Phone: Start: 24-17-7329RVN THYROID STIM HORMONECorey Juan DO Work Phone: Start: 45-12-9320Noapm dip stick/tablet rgnt non-auto w/o micrscpCorey Juan DO Work Phone: Start: 03-63-3912Vrtlo dip stick/tablet rgnt non-auto w/o micrscpCorey Juan DO Work Phone: Start: 41-81-6242LUQIWLKQ LAB TESTNot In System Ref ProvStart: 46-51-3002Kftoqwsn identification testAmanda Ford FIBERGLASS TECHNICIAN Work Phone: Start: 50-60-3151Pcrwvzvidadva of growth of fungi Amanda Ford FIBERGLASS TECHNICIAN Work Phone: Start: 17-95-6445Abwnnmakdqx vaginalis detection Amanda Ford FIBERGLASS TECHNICIAN Work Phone: Start: 69-86-1891Qifys cultureJennifer Logan FIBERGLASS TECHNICIAN Work Phone: Start: 98-01-1889Riljebtruz ultrasound of gravid uterusArtemionnedmundo Ford FIBERGLASS TECHNICIAN Work Phone: Start: 89-30-0243AEPRETJT LAB TESTNot In System Ref ProvStart: 25-74-9805LVV TESTCorey Juan DO Work Phone: Start: 95-85-5907Tskkqmim rubellaNot In System Ref ProvStart: 24-64-0614Lsftpwbn Zak Lindquist MD Work Phone: Start: 72-72-6280Qtsyzwkduq glycosylated x1iLwtbnfnm Provider ExternalStart: 61-27-0653TEF 1&2 AB/AG SCREEN (P24 AG)Not In System Ref ProvStart: 97-67-5662Gpuj ia hepatitis b surface antigenNot In System Ref Prov Start: 10-87-5978CFGHSWMC TOTAL(UNKNOWN SYPHILIS STATUS)Not In System Ref Prov Start: 88-78-8925DSMN AND SCREENNot In System Ref ProvStart: 09-21-2024 ULTRASOUND OFFICENot In System Ref ProvStart: 14-45-9111Zdejc dip stick/tablet rgnt non-auto w/o micrscpCorey Juan DO Work Phone: Start: 99-18-3735Mh preg uterus after 1st trimest / gestationLiliana G David FIBERGLASS TECHNICIAN.HIGH DENSITY PRESS LABORER Work Phone: Start: 42-74-8430Mp preg uterus after 1st trimest / gestationLiliana G David FIBERGLASS TECHNICIAN.HIGH DENSITY PRESS LABORER Work Phone: Start: 69-30-8211Pv pelvic nonobstetric real-time image Nydia Guy MD Work Phone: start: 68-58-9679Vwlsphhu screenLILIANA MICKEYComment on above:Order Comment: Specimen Type: BLOOD SPECIMEN Ordering Facility: [facility] Address: [address] [place], [place] [id number] By: #### TSPN #### ELO BLOOD BANK [facility] [id number] [place] [address] [place] AMERICAStart: 33-28-8793UVV,APTIMA HPV,AGE GDLN Les Monsivaiso DO Work Phone: Start: 67-65-4010Bdyivzzlxzb observation [Identifier] in Cervix by Rose Enriquez PhD Work Phone: Start: 74-31-3410EX Shoulder Scope RCR/Biceps Tendon (Right)FIBERGLASS TECHNICIAN Amanda Logan Work Phone: Start: 07-62-6653Nhejogna tomography of abdomen and pelvis with contrastMD Mariam Appiah Work Phone: Start: 54-48-6252Qtoiezmwf for occult blood in fecesMD Mariam Appiah Work Phone: Start: 77-28-0815Vxezr cultureMD Mariam Appiah Work Phone: Start: 28-79-6466Ipghl cultureMD Mariam Appiah Work Phone: Start: 42-66-6072Gkhxb X-ray of right shoulderMD Mariam Appiah Work Phone: Start: 39-41-4865Jpsre metabolic panel calcium total Rei Montez Work Phone: Start: 67-91-8485Axfuw count complete auto&auto difrntl wbcMichael A Montez Work Phone: Start: 60-85-0494Lyerv esophagusGregdriss R Olivera Work Phone: Start: 09-90-5956Wjair metabolic panel calcium total Rashard R Olivera Work Phone: Start: 05-84-8376Rflzi count complete automatedGregdriss R Olivera Work Phone: Start: 47-20-9470Dipwv metabolic panel calcium total Rashard R Olivera Work Phone: Start: 16-53-0721Zvmfr count complete automatedRashard Olivera Work Phone: Start: 05-06-2020 End: 57-93-2631VDWSQZYNPIB SLEEVE LAPAROSCOPIC ROBOTICRashard Olivera Work Phone: Start: 76-45-2300Wsswn test visual color cmprsn methsGlisa Olivera Work Phone: Start: 71-98-7944Vtonw iv surg pathology gross&microscopic examRashard Olivera Work Phone: Start: 30-88-2778Yccumygzaq exam chest 2 viewsRashard Olivera Work Phone: Start: 76-29-3054Zlbry of nicotineRashard Olivera Work Phone: Start: 89-61-9063Ltsza metabolic panel calcium total Rashard Olivera Work Phone: Start: 41-73-1742Mbylc count complete Idania Olivera Work Phone: Start: 84-67-8264Avcjhodjxiv timeRashard Olivera Work Phone: Start: 33-79-0805Bulgbxoxfrmrhp time partial plasma/whole bloodRashard Olivera Work Phone: Start: 69-29-8728Mgt routine ecg w/least 12 lds i&r onlyRashard Olivera Work Phone: Start: 46-03-1824XBH REPORTHpf ScanningCholecystectomy Samir Thompson Comment on above:2016 Plan of Treatment DateCare ActivityDetailAuthorStart: 59-65-8464OXE Vaccine (1 - 1-dose 75+ series)RSV Vaccine (1 - 1-dose 75+ series)[facility] 2045 Zoster Vaccines (1 of 2)Zoster Vaccines (1 of 2)[facility]Start: 80-39-1464WAiP,Tdap and Td Vaccines (2 - Td or Tdap)DTaP,Tdap and Td Vaccines (2 - Td or Tdap)[facility] SystemStart: 12-25-2032 DTaP/Tdap/Td Vaccines (2 - Td or Tdap)DTaP/Tdap/Td Vaccines (2 - Td or Tdap) [facility] HospitalStart: 79-83-5158Fokre microalbumin profile DTaP,Tdap,Td Vaccine (2 - Td or Tdap)[facility]: 55-46-9524Owhkoiazi for malignant neoplasm of cervixUnKettering Memorial Hospital: 85-87-5012Pwnqe BMI ScreeningAdult BMI ScreeningProOhiohealth Arthur G.[facility]. [facility], Cancer Center SystemStart: 79-19-4377Njxetlw ScreeningTobacco ScreeningProDayton Children's Hospitaltart: 12-05-2025 End: 16-85-2449WW MFM with or without consultUS MFM with or without consult Imaging Routine Previous gastric bypass affecting , antepartum Hypothyroidism affecting in second trimester 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 ([facility]) Obesity affecting in second trimester, unspecified obesity type Encounter for supervision of resulting from assisted reproductive technology, antepartum Expected: 12/05/2025 (Approximate), Expires: 12/05/2025[facility] Work Phone: comment on above:Expected: 12/05/2025 (Approximate), Expires: 12/05/2025Start: 08-21-2025 End: 04-81-0891Vboqhfd encounter procedureNOCASEY COUNTY HOSPITALStart: 03-06-2025 End: 00-85-5958Fwvfpsp encounter /19/2025 10:30 AM EST Routine GUDELIA HERNANDEZ [address] [place] [address] Jojo Ames PA [address] [place], [place] [id number] GUDELIA SHERMANGYNStart: 03-05-2025 End: 16-62-8499Xddjeaq encounter veggdhcod77/18/2025 11:15 AM EST Appointment [facility] - Ultrasound [address] [place] [address] [phone] [facility] - UltrasoundStart: 02-20-2025 End: 64-14-8703Ssraomt encounter procedureNOMS BCP OBStart: 02-19-2025 End: 86-88-0399HK biophysical profile w non stress testUS biophysical profile w non stress test Imaging Routine TSH (thyroid-stimulating hormone deficiency) Expected: 02/19/2025 (Approximate), Expires: 08/19/2025[facility] Work Phone: comment on above:Expected: 02/19/2025 (Approximate), Expires: 08/19/2025Start: 02-19-2025 End: 16-77-4318Pwjgvig encounter reshvxnec20/04/2025 1:00 PM EST Routine [facility] [place] [facility] [address] [place], [id number] Les Martinez DO [address] [place], [place] [id number] [facility] OBGYNStart: 02-07-2025 End: 14-34-9641XA MFM with or without consultUS MFM with or without consult Imaging Routine Hypothyroidism affecting in second trimester headache in second trimester Previous gastric bypass affecting , antepartum 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 ([facility]) Expected: 02/07/2025, Expires: 02/07/2026[facility] Work Phone: comment on above:Expected: 02/07/2025, Expires: 02/07/2026Start: 02-07-2025 End: 50-37-9514Eoqojmn encounter hiurtnqdo64/23/2025 9:45 AM EDT Appointment [facility] [place] [address] [facility] [address] [place] [address] [phone] Medicine [place] ParkStart: 02-06-2025 End: 77-57-2118Dqztlql encounter procedureNOMS Lamb OBGYNComment on above: ArrivedStart: 02-03-2025 End: 48-75-7640QV MFM with or without consultUS MFM with or without consult Imaging Routine Previous gastric bypass affecting , antepartum Hypothyroidism affecting in second trimester 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 ([facility]) Obesity affecting in second trimester, unspecified obesity type Expected: 02/03/2025 (Approximate), Expires: 01/04/2026[facility] Work Phone: comment on above:Expected: 02/03/2025 (Approximate), Expires: 01/04/2026Start: 01-30-2025 End: 91-93-1879Llovdstihjgo / ancillary services ipxkrehvdf08/15/2025 2:30 PM EDT Ancillary Procedure [facility] [address] [place] [address] [place] [id number] [facility] OBGYNStart: 01-16-2025 End: 56-07-3365CY for pregnancyUS OB follow up transabdominal approach Imaging Routine TSH (thyroid-stimulating hormone deficiency) Expected: 01/16/2025, Expires: 05/19/2025[facility] [employer] Work Phone: comment on above:Expected: 01/16/2025, Expires: 05/19/2025Start: 01-16-2025 End: 19-86-3666Bcdczjm encounter procedureNOMS [place] OBGYNComment on above: ArrivedStart: 01-03-2025 End: 53-24-2455Wqcywke encounter liunpqbbk93/18/2025 2:15 PM EDT Appointment [facility] [place] [address] [facility] [address] [place] [address] [phone] Medicine [place] ParkStart: 12-19-2024 End: 63-72-3368HCD panel - Blood by Automated countCBC Lab Routine Diabetes mellitus screening Expected: 12/19/2024 (Approximate), Expires: 12/19/2025[facility] Work Phone: comment on above:Expected: 12/19/2024 (Approximate), Expires: 12/19/2025Start: 12-19-2024 End: 18-73-7978Jcripmxeiof of glucose 1 hour after glucose challenge for glucose tolerance testGlucose tolerance, 1 hour Lab Routine Diabetes mellitus screening Expected: 12/19/2024 (Approximate), Expires: 12/19/2025[facility] HealthcareComment on above:Expected: 12/19/2024 (Approximate), Expires: 12/19/2025Start: 12-19-2024 End: 41-51-2647Omunwxr encounter procedureNOMS [place] OBGYNComment on above: ArrivedStart: 42-61-3646KETQS-19 Vaccine ()COVID-19 Vaccine ()[facility] SystemStart: 29-00-6200Wgfvuwwag vaccination [facility]: 12-05-2024 End: 92-47-1414Rqxcvrh encounter procedureK[facility] ImagingStart: 12-04-2024 End: 09-26-5753Fhutdkasrgyc / ancillary services /19/2025 8:30 AM EDT Ancillary Procedure [facility] [place] [facility] [address] [place] [address] [place] [address] DVFH Ricco OBGYNStart: 30-97-7203Pkxpxnak admission [facility]: 97-62-1478FyzyzciiaParkview Health Montpelier Hospitaltart: 28-89-5559Zbspmzts identified in Urine by CultureUrine Culture [facility]: 11-30-2024 End: 05-38-1986Glqui cultureParkview Health Montpelier Hospitaltart: 11-20-2024 End: 12-07-3740Xwftj fetoprotein, maternalAlpha fetoprotein, maternal Lab Routine Need for maternal serum alpha-protein (MSAFP) screening ([facility]) Expected: 11/20/2024 (Approximate), Expires: 12/21/2024[facility] HealthcareComment on above:Expected: 11/20/2024 (Approximate), Expires: 12/21/2024Start: 11-20-2024 End: 50-90-7754XT for pregnancyUS OB 14+ weeks anatomy scan Imaging Routine Screening, , for anatomic survey ([facility]) Expected: 11/20/2024 (Approximate), Expires: 02/20/2025[facility] HealthcareComment on above:Expected: 11/20/2024 (Approximate), Expires: 02/20/2025Start: 11-20-2024 End: 78-80-8480Aspstof encounter procedureNOMS BCP OBComment on above:Arrived Start: 10-22-2024 End: 51-10-9495Gbfzsvp encounter yoaihimam34/07/2025 11:20 AM EDT Routine [facility] [address] [place] [address] Les Martinez, DO [address] [place] [address] NOMS BCP OBStart: 71-09-1135Tovekyfp identified in Urine by CultureUrine [facility] Start: 00-43-8118Ntqvpls CultureGenital [facility] Start: 21-17-4596Mqzir [facility] Andersontart: 10-18-2024 [facility]: 09-20-2024 End: 90-34-8901AWW/RhABO/Rh Lab Routine Missed menses , unspecified gestational age Expected: 09/20/2024 (Approximate), Expires: 09/20/2025[facility] HealthcareComment on above:Expected: 09/20/2024 (Approximate), Expires: 09/20/2025Start: 09-20-2024 End: 18-68-6208Etcxn type and Indirect antibody screen panel - BloodType and screen Lab Routine Missed menses , unspecified gestational age Expected: 09/20/2024 (Approximate), Expires: 09/20/2025[facility] Work Phone: comment on above:Expected: 09/20/2024 (Approximate), Expires: 09/20/2025Start: 09-20-2024 End: 02-57-1004Cdzig of abuse panel - Urine by Screen methodRapid drug screen, urine Lab Routine , unspecified gestational age Encounter for supervision of normal first in first trimester Expected: 09/20/2024 (Approximate), Expires: 09/20/2025[facility] HealthcareComment on above:Expected: 09/20/2024 (Approximate), Expires: 09/20/2025Start: 09-13-2024 End: 88-81-5047oxlxqtaslv49/29/2025 2:30 PM EDT Initial [facility] [address] [address] VEOJ BCP OBStart: 09-13-2024 End: 27-97-4750Ahhqzbmsitay / ancillary services /29/2025 2:00 PM EDT Ancillary Procedure [facility] OB [address] [place] [address] [facility] OBStart: 09-03-2024 End: 87-78-0201Mdiyohj evaluation of patient and reportReproductive Endocrinology InfertilityComment on above: scanob scan, non ivfStart: 08-22-2024 End: 422888-wpclaqqdgvlxgs D3 [Mass/volume] in Serum or PlasmaVitamin D 25 hydroxy Lab Routine H/O gastric bypass Vitamin D deficiency Expected: 08/22/2024 (Approximate), Expires: 08/22/2025[facility] HealthcareComment on above: Expected: 08/22/2024 (Approximate), Expires: 08/22/2025Start: 08-22-2024 End: 29-44-7812Nafnqetve (Vitamin B12) [Mass/volume] in Serum or PlasmaVitamin B12 Lab Routine H/O gastric bypass Expected: 08/22/2024 (Approximate), Expires: 08/22/2025[facility] HealthcareComment on above:Expected: 08/22/2024 (Approximate), Expires: 08/22/2025Start: 08-22-2024 End: 68-27-6557Skrfostv (aka Vitamin B1)Thiamine (aka Vitamin B1) Lab Routine H/O gastric bypass Expected: 08/22/2024 (Approximate), Expires: 08/22/2025[facility] HealthcareComment on above:Expected: 08/22/2024 (Approximate), Expires: 08/22/2025Start: 08-22-2024 End: 75-23-4752Diomgomtulh [Units/volume] in Serum or PlasmaTSH Lab Routine Abnormal thyroid function test Expected: 08/22/2024 (Approximate), Expires: 08/22/2025[facility] HealthcareComment on above:Expected: 08/22/2024 (Approximate), Expires: 08/22/2025Start: 08-22-2024 End: 43-79-3484Rulglitgc (T4) free [Mass/volume] in Serum or PlasmaT4, free Lab Routine Abnormal thyroid function test Expected: 08/22/2024 (Approximate), Expires: 08/22/2025[facility] HealthcareComment on above:Expected: 08/22/2024 (Approximate), Expires: 08/22/2025Start: 08-22-2024 End: 79-81-9104Nfgiifiygycbrsap (T3) Free [Mass/volume] in Serum or PlasmaT3, free Lab Routine Abnormal thyroid function test Expected: 08/22/2024 (Approximate), Expires: 08/22/2025[facility] Work Phone: Comment on above:Expected: 08/22/2024 (Approximate), Expires: 08/22/2025Start: 08-22-2024 End: 74-04-8221Yhyirgx encounter gxozsvcgb62/07/2025 10:00 AM EDT Office Visit [facility] [address] [place] [id number] Darleen Sinclair MD [address] [place] [address] ArrivedYAKIMA [facility] ENDOCRINOLOGYComment on above:Arrived Start: 08-20-2024 End: 00-24-0033FXKXPQYOB ULTRASOUND WHIOBSTETRIC ULTRASOUND WHI Anc Imaging Routine 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) Expected: 08/20/2024, Expires: 08/20/2025[facility] Work Phone: Comment on above:Expected: 08/20/2024, Expires: 08/20/2025Start: 08-20-2024 End: 43-91-1171bqkmdcwuec67/05/2025 8:30 AM EDT [facility] Reproductive Endocrinology Infertility [address] [place] [address] Melodie Hernandez APRN.[employer] [address] [place] [address] preg apptReproductive Endocrinology Infertility Comment on above:preg apptStart: 07-07-2024 End: 00-26-4111Kzljibb encounter [facility]M [facility] Comment on above:donor thawiui dStart: 05-09-2024 End: 36-28-5002mgazvzpuak51/22/2025 8:00 AM EST [facility] Reproductive Endocrinology Infertility [address] [place] [address] Melodie Hernandez APRN.[employer] [address] [address] donor sperm teachReproductive Endocrinology InfertilityComment on above:donor sperm teachStart: 62-38-3026Tmzsghc referral [facility] Work Phone: Start: 03-11-2024 End: 113677-pvcgtianwljtyy D3 [Mass/volume] in Serum or PlasmaVITAMIN D 25 HYDROXY Lab Routine Reproductive mgmt, 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 Expected: 03/11/2024, Expires: 06/10/2024[facility] ClinicComment [facility]:Expected: 03/11/2024, Expires: 06/10/2024Start: 03-11-2024 End: 66-43-2323KLGNXED SCREEN, EXPANDEDCARRIER SCREEN, EXPANDED Lab Routine Encounter for other genetic testing of female for procreative management Expected: 03/11/2024, Expires: 06/10/2024[facility] ClinicComment on above: Expected: 03/11/2024, Expires: 06/10/2024Start: 03-11-2024 End: 71-19-3514Satfkawsw trachomatis+Neisseria gonorrhoeae DNA [Presence] in Unspecified specimen by AC with probe detectionGONORRHEA/CHLAMYDIA NAAT Lab Routine Special screening examination for infectious diseases Expected: 03/11/2024, Expires: 06/10/2024[facility] ClinicComment on above:Expected: 03/11/2024, Expires: 06/10/2024Start: 03-11-2024 End: 31-88-9050Xuvfvydfpwvtlop IgG Ab [Units/volume] in Serum or PlasmaCMV IGG ANTIBODY BL Lab Routine Special screening examination for infectious diseases Expected: 03/11/2024, Expires: 06/10/2024[facility] ClinicComment [facility] above: Expected: 03/11/2024, Expires: 06/10/2024Start: 03-11-2024 End: 89-50-2268Tnkdzpetxgvumrd IgM Ab [Units/volume] in Serum or PlasmaCMV IGM AB Lab Routine Special screening examination for infectious diseases Expected: 03/11/2024, Expires: 06/10/2024[facility] ClinicComment on above:Expected: 03/11/2024, Expires: 06/10/2024Start: 03-11-2024 End: 02-06-1830Kjworfuowv A1c in BloodHEMOGLOBIN A1C Lab Routine Reproductive mgmt, 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 Expected: 03/11/2024, Expires: 06/10/2024 [facility] HospitalComment [facility] above:Expected: 03/11/2024, Expires: 06/10/2024Start: 03-11-2024 End: 50-57-4035Xutpmyvpp B virus core Ab [Presence] in SerumHEPATITIS B CORE ANTIBODY TOTAL Lab Routine Special screening examination for infectious diseases Expected: 03/11/2024, Expires: 06/10/2024[facility]Comment [facility] above: Expected: 03/11/2024, Expires: 06/10/2024Start: 03-11-2024 End: 26-53-7368Yqwkfeshe B virus surface Ag [Presence] in SerumHEPATITIS B SURFACE ANTIGEN Lab Routine Special screening examination for infectious diseases Expected: 03/11/2024, Expires: 06/10/2024[facility] ClinicComment on above:Expected: 03/11/2024, Expires: 06/10/2024Start: 03-11-2024 End: 79-72-9436Hxhnjrbfn C virus Ab [Presence] in SerumHEPATITIS C ANTIBODY IA WITH CONFIRMATION Lab Routine Special screening examination for infectious d iseases Expected: 03/11/2024, Expires: 06/10/2024[facility] ClinicComment on above:Expected: 03/11/2024, Expires: 06/10/2024Start: 03-11-2024 End: 11-74-0019CDC 1+2 Ab [Presence] in Serum or Plasma by ImmunoassayHIV 1/2 COMBO WITH REFLEX TO DIFFERENTIATION Lab Routine Special screening examination for infectious diseases Expected: 03/11/2024, Expires: 06/10/2024[facility] ClinicComment on above:Expected: 03/11/2024, Expires: 06/10/2024Start: 03-11-2024 End: 51-30-5839HUJSMEW IGG ANTIBODYRUBELLA IGG ANTIBODY Lab Routine Special screening examination for infectious diseases Expected: 03/11/2024, Expires: 06/10/2024[facility] ClinicComment on above:Expected: 03/11/2024, Expires: 06/10/2024Start: 03-11-2024 End: 59-94-1395DXWUOAQM TREPONEMAL W/REFLEXSYPHILIS TREPONEMAL W/REFLEX Lab Routine Special screening examination for infectious diseases Expected: 03/11/2024, Expires: 06/10/2024[facility] ClinicComment on above:Expected: 03/11/2024, Expires: 06/10/2024Start: 03-11-2024 End: 08-06-3302OCAO + SCREEN PRENATALTYPE + SCREEN Blood Bank Routine Reproductive mgmt, 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 Expected: 03/11/2024, Expires: 06/10/2024[facility] ClinicComment on above:Expected: 03/11/2024, Expires: 06/10/2024Start: 03-11-2024 End: 61-08-0912AZEDLKSHU ZOSTER IGGVARICELLA ZOSTER IGG Lab Routine Special screening examination for infectious diseases Expected: 03/11/2024, Expires: 06/10/2024[facility] Work Phone: Comment on above:Expected: 03/11/2024, Expires: 06/10/2024Start: 03-09-2024 End: 15-39-8774luciasilqa94/22/2024 10:00 AM EST [facility] Reproductive Endocrinology Infertility [address] [place] [address] Melodie Hernandez APRN.[employer] [address] [place] [address] Donor sperm teachReproductive Endocrinology InfertilityComment on above:Donor sperm teachStart: 02-20-2024 End: 63-69-7315Ysacagx encounter atwjkkkii11/04/2024 2:50 PM EST Office Visit [facility] OB [address] [place] [id number] Les Martinez, DO [address] [place], [place] [id number] ArrivedNOMS BCP OBComment on above:ArrivedStart: 42-35-8046Idtqv-19 Vaccine ( season)Covid-19 Vaccine ( season)[facility]: 58-07-3993Muuep-19 Vaccine ( season) Covid-19 Vaccine ( season)[facility]: 30-20-9251Pyfrhaoky vaccinationInfluenza Vaccine (#1)[facility] HealthcareStart: 12-07-2023 End: 73-42-1353DatzhmpehParkview Health Montpelier Hospitaltart: 68-55-2151KmwqsndelProtestant Deaconess Hospital CenterStart: 49-18-0140VttnuktrwProtestant Deaconess Hospital CenterStart: 23-59-5687MjvsnukqpProtestant Deaconess Hospital CenterStart: 16-56-7176BcakytgogParkview Health Montpelier Hospitaltart: 06-11-2022 End: 80-77-3446AoybpysorProtestant Deaconess Hospital CenterStart: 03-14-1399Ysldybva admissionParkview Health Montpelier Hospitaltart: 28-83-3718WivghadqhProtestant Deaconess Hospital CenterStart: 04-16-0055GfgddigpmParkview Health Montpelier Hospitaltart: 24-08-1565MqfgmnkouParkview Health Montpelier Hospitaltart: 25-32-9442Qzkyprzz identified in Urine by CultureUrine CultureParkview Health Montpelier Hospitaltart: 89-62-4976Diwmfrqx identified in Urine by CultureUrine CultureParkview Health Montpelier Hospitaltart: 05-16-2020 End: 07-02-2845Ifglde Visit05/16/2020 Office Visit Bariatrics Rashard Olivera, [address] [facility] [address] [place] [address] [facility] Invasive Bariatric SurgStart: 05-06-2020 End: 35-99-0243Csrbwugh EncounterST ORComment on above:XI LAPAROSCOPIC ROBOTIC GASTRIC BYPASS BEN-EN-Y, LIVER BIOPSY, EGD- GI UNIT SCHEDULED.Start: 05-02-2020 End: 84-73-8190GMFLOCOVID- Lab Routine Pre-op testing Expected: 05/02/2020, Expires: 05/01/2021[facility] on above:Expected: 05/02/2020, Expires: 05/01/2021tart: 05-02-2020 End: 73-28-8125Wvqssn VisitProv[facility] Invasive Bariatric SurgStart: 11-78-6421QBQ QnTSH testingMercy Health: 05-00-8499Sshratecm vaccinationFlu vaccine (#1)[facility]: 53-71-6052Bpwcdorkg for malignant neoplasm of cervixACMC Healthcare System Glenbeightart: 89-18-3821LDaT,Tdap and Td Vaccines (1 - Tdap)DTaP,Tdap and Td Vaccines (1 - Tdap)[facility]: 02-55-3244XOhV/Tdap/Td vaccine (1 - Tdap)DTaP/Tdap/Td vaccine (1 - Tdap)[facility]: 20-14-3518Bgzneivho B Vaccine (1 of 3 - 19+ 3-dose series) Hepatitis B Vaccine (1 of 3 - 19+ 3-dose series)[facility]: 20-43-7530Nccmcvcha B Vaccines (1 of 3 - 19+ 3-dose series)Hepatitis B Vaccines (1 of 3 - 19+ 3-dose series)[facility]: 2014 Urine microalbumin profileDTaP,Tdap,Td Vaccine (1 - Tdap)[facility]: 59-77-5965Tnyjv BMI Follow Up PlanAdult BMI Follow Up PlanECU Health Beaufort Hospitaltart: 60-99-6093Wbryx BMI ScreeningAdult BMI ScreeningECU Health Beaufort Hospitaltart: 26-16-3600Xhurnid ScreeningAnxiety ScreeningACMC Healthcare System Glenbeightart: 78-98-8476Mskaxkqjaf ScreeningDepression ScreeningACMC Healthcare System Glenbeightart: 29-82-0533Vsokkkpze C screeningHepatitis C ScreeningACMC Healthcare System Glenbeightart: 14-26-3289RSZ screeningHIV ScreeningACMC Healthcare System Glenbeightart: 92-42-2032MLO screeningHIV screenMercy Health: 10-49-2330Clikgtwjb vaccination Varicella Vaccines (1 of 2 - 13+ 2-dose series)[facility] Start: 81-08-0970Kgowwdails ScreeningDepression ScreeningUC Health Start: 96-14-0784Vpdskde ScreeningTobacco ScreeningECU Health Beaufort Hospitaltart: 69-34-5130VEE vaccine (1 - 2-dose series)HPV vaccine (1 - 2-dose series)[facility]: 50-81-4673UKS Vaccines (1 of 1 - Standard series)MMR Vaccines (1 of 1 - Standard series)[facility]: 06-03-4154Zhodncuhk vaccine (1 of 2 - 2-dose childhood series)Varicella vaccine (1 of 2 - 2-dose childhood series)[facility]: 71-27-8467Stxbojmlu C screeningHepatitis C [facility]: 62-11-0697RDV screening HIV ScreeningBerger Hospital: 39-40-3354Doxes panelLipid PanelBerger Hospital: 49-64-3018Kdmfsh Adult Physical Yearly Adult PhysicalUnGerman HospitalaPTT in Platelet poor plasma by Coagulation assayFirelands Regional Medical CenterBacteria identified in Genital specimen by Aerobe culturePremier Health Miami Valley Hospital SouthBacteria identified in Urine by CultureUrine culture Microbiology Routine Missed menses Ordered: 09/20/2024[facility] HealthcareComment on above:Ordered: 09/20/2024alcitriol [Mass/volume] in Serum or PlasmaPremier Health Miami Valley Hospital SouthCBC W Auto Differential panel - BloodCBC and differential Lab Routine Missed menses , unspecified gestational age Ordered: 09/20/2024[facility] HealthcareComment on above:Ordered: 09/20/2024HLAMYDIA TRACHOMATIS (GENITO/STI)CHLAMYDIA TRACHOMATIS (GENITO/STI) Lab Routine Exposure to STD Ordered: 11/20/2024[facility] HealthcareComment on above:Ordered: 11/20/2024ontinuous pulse oximetryPulse oximetry, continuous Respiratory Care Routine Every 4hr until discontinued starting 05/06/2020[facility]- [place], [place] on above:Every 4hr until discontinued starting 05/06/2020T Abdomen and Pelvis WO and W contrast IV [facility] Hospital SouthCytology Cervical or vaginal smear or scraping studyPap Smear Pathology and Cytology Routine Well woman exam with routine gynecological exam Ordered: 02/20/2024[facility] Healthcare Work Phone: comment on above:Ordered: 02/20/2024Electromyography [facility] Hospital SouthF5 gene mutations found [Identifier] in Blood or Tissue by Molecular genetics method NominalPremier Health Miami Valley Hospital South Factor VIII: C assayPremier Health Miami Valley Hospital SouthGlucose measurement estimated from glycated hemoglobinPremier Health Miami Valley Hospital SouthHemoglobin A1c/Hemoglobin.total in [facility] CenterHemoglobin A1c/Hemoglobin.total in BloodHemoglobin A1c Lab Routine Missed menses , unspecified gestational age Ordered: 09/20/2024[facility] HealthcareComment on above: Ordered: 09/20/2024Hepatitis B virus surface Ag [Presence] in Serum or Plasma by ImmunoassayHepatitis B surface antigen Lab Routine Missed menses , unspecified gestational age Ordered: 09/20/2024[facility] HealthcareComment on above: Ordered: 09/20/2024Hepatitis C virus Ab [Presence] in Serum or Plasma by ImmunoassayHepatitis C antibody Lab Routine Missed menses , unspecified gestational age Ordered: 09/20/2024[facility] HealthcareComment on above:Ordered: 09/20/2024HIV-1/HIV-2 antigen/antibody combination immunoassayHIV-1 and HIV-2 antibodies Lab Routine Missed menses , unspecified gestational age Ordered: 09/20/2024[facility] HealthcareComment on above:Ordered: 09/20/2024INR in Platelet poor plasma by Coagulation assayPremier Health Miami Valley Hospital South Mullerian inhibiting substance [Mass/volume] in Serum or PlasmaPremier Health Miami Valley Hospital SouthNebulizer therapyHHN Treatment Respiratory Care Routine TID until discontinued starting 05/06/2020[facility], KYComment on above: TID until discontinued starting 05/06/2020Neisseria gonorrhoeae DNA [Presence] in Unspecified specimen by AC with probe detectionNeisseria gonorrhea DNA probe, direct Lab Routine Exposure to STD Ordered: 11/20/2024[facility] Healthcare Comment on above:Ordered: 11/20/2024Oxygen therapy [Minimum Data Set]Initiate Oxygen Therapy Protocol Respiratory Care Routine Daily until discontinued starting 05/06/2020[facility], KYComment on above:Daily until discontinued starting 05/06/2020atient EducationProtestant Deaconess Hospital Ctr Work Phone: Patient referralProtestant Deaconess Hospital Ctr Work Phone: Reagin Ab [Presence] in Serum by RPRRPR Lab Routine Missed menses , unspecified gestational age Ordered: 09/20/2024[facility] HealthcareComment on above:Ordered: 09/20/2024Rubella antibody, IgGRubella antibody, IgG Lab Routine Missed menses , unspecified gestational age Ordered: 09/20/2024[facility] HealthcareComment on above:Ordered: 09/20/2024Spirometry panelIncentive spirometry Respiratory Care Routine Every 2hr while awake until discontinued starting 05/06/2020[facility], KYComment on above:Every 2hr while awake until discontinued starting 05/06/2020URESWAB(R) ADVANCED VAGINITIS PLUS, TMASURESWAB(R) ADVANCED VAGINITIS PLUS, TMA Pathology and Cytology Routine Exposure to STD Ordered: 11/20/2024[facility] Healthcare Work Phone: comment on above:Ordered: 11/20/2024Surgical Pathology Surgical Pathology Lab Routine Release Upon Ordering for 1 Occurrences starting 05/06/2020[place], [place]:Release Upon Ordering for 1 Occurrences starting 05/06/2020 End: 50-27-3355Crwcaxekqlr [Units/volume] in Serum or PlasmaTSH Lab Routine Thyroid disease every 4 weeks for 6 Occurrences starting 11/20/2024 until 11/20/2025[facility] HealthcareComment on above:every 4 weeks for 6 Occurrences starting 11/20/2024 until 11/20/2025Thyrotropin [Units/volume] in Serum or PlasmaTSH Lab Routine TSH (thyroid-stimulating hormone deficiency) Ordered: 01/16/2025[facility] HealthcareComment on above:Ordered: 01/16/2025von Willebrand factor (vWf) Ag [Units/volume] in Platelet poor plasmaPremier Health Miami [facility] Hospital Southvon Willebrand factor (vWf) multimers in Platelet poor plasma by [facility] Willebrand factor (vWf) ristocetin cofactor actual/normal in Platelet poor plasma by Platelet ag [facility] Immunizations Immunization DateImmunizationNotesCare UbwzronlZpdwsuug68-38-1105htesrav toxoid, reduced diphtheria toxoid, and acellular pertussis vaccine, Melvin Sinclair MD Work Phone: [facility] HospitalYjarfkajzk55-92-8323ZVHHL-39 mRNA-1273 (Moderna) MELY Ford Work Phone: [facility]04-06-2021COVID-19 mRNA-1273 (Moderna)MELY Ford Work Phone: [facility] Payers DatePayer CategoryPayerPolicy [id number] 2023Medicaid [id number] [id number] [id number] 1.2.840.302779.1.13.239.2.7.3.927276.02618-94-8160Thmnoss [id number] 2..840.1.534219.3.57[id number] 2..840.1.736569.3.57[id number] 2..840.1.931357.3.57[id number] 2..840.1.122388.3.57[id number] 2..840.1.044818.3.57[id number] 2..840.1.063315.3.57[id number] 2..840.1.010931.3.579.[id number] 2..840.1.137125.3.57[id number] 2.16.840.1.877615.3.57[id number] 2.840.1.476177.3.57[id number] 2.16.840.1.972721.3.57[id number] 2..840.1.911349.3.57[id number] 2.840.1.889619.3.57[id number] 2.840.1.048184.3.579.2.193377-31-6969Pbxcato794994501 2.0.1.567516.3.57[id number] 2.840.1.434223.3.579.[id number] 2..1.585083.3.57[id number] 2.0.1.039626.3.579.[id number] 2..1.539842.3.579.2.641653-57-1961Gzylihg66277859 2..1.000967.3.579.2.751842-44-9283Yddousi57777801 2.0.1.232860.3.579.2.[id number] 2..1.491790.3.579.2.116178-26-0401Bdgxgra16696536 2.840.1.806456.3.579.[id number] 2.0.1.966268.3.579.2.[id number] 2.840.1.859718.3.57[id number] 2.0.1.550066.3.579.2.552121-86-0382Zfepbwn65897437 2.16.840.1.573479.3.579.2.385708-71-9208Ztcijzu0074583 2.16.840.1.751775.3.579.2.1259Prhansente [facility] Health Claims [id number] qc11vn70-wc90-07q7-h81j-[id number] 2.16.840.1.912463.98Eqvmrwa39772707 2.16.840.1.062774.3.579.2.657Fntmopz22668028 2.16.840.1.977015.3.579.2.842Yqhgcpw90588016 2.16.840.1.403488.3.579.2.531 Social History DateTypeDetailFacilityStart: 04-22-2020 End: 87-67-1589Mryptrc smoking status NHISNever smokerMercy Health: 04-22-2020 End: 32-45-5127Gaftkmt use and exposureNever usedMercy Health: 04-22-2020 End: 69-63-4262Ahvoqvf intakeCurrent non-drinker of alcohol (finding)[facility]: 74-06-7114Xoh Assigned At BirthNot on [place], [place]Exposure to SARS-CoV-2 (event)Not sureMercy Health: 01-17-2023 Tobacco smoking statusNeverMansfield Hospital CenterStart: 11-28-2023 End: 28-90-8951Fsc Assigned [facility] EeBria Other Start: 92-79-5895Yej Assigned At Pending Sale To [facility] HealthFeChillicothe VA Medical Centertart: 61-58-5584Hpgkgrc smoking status NHISCurrent some day smokerParkview Health Montpelier Hospitaltart: 04-18-2023 End: 56-27-5961Hmepgqe smoking status NHISSmoker (finding)[facility] Hospitaltart: 11-28-2023 End: 59-70-7419Opxwboq smoking status NHISSmokes tobacco dailyNOMS Healthcare Start: 70-32-5686Tgggvin of tobacco useCigarette SmokerNOMS HealthcareStart: 11-28-2023 End: 06-69-9796Cdrhpeuanw smoked current (pack per day) - Reported0.5NOMS HealthcareStart: 11-28-2023 End: 51-63-1050Kyhbqtgjy beverage intakeEx-drinker (finding)[facility] Start: 74-98-5242Scxhufy Commentcaffeine: 1-2 cups per day teaNOMS Healthcare Start: 33-04-5631Wdwqqp identityIdentifies as female gender (finding)[facility] HealthcareStart: 11-21-2014 End: 55-70-3671WmrGreeka (finding)[facility] SouthTobacco smoking status NHISTobacco smoking consumption unknownClarington ClinicStart: 75-63-6021ZdltkgxprIjqekkhfuParkview Health Montpelier Hospitaltart: 10-18-2024 End: 53-47-8941Knigcuo smoking status NHISEx-smoker (finding)[facility] SouthNEGATED: Highlighted rowUniversity Hospitals Samaritan [facility] Center Medical Equipment Procedure CodeEquipment CodeEquipment Original TextEquipment IdentifierDates Functional endoscopic sinus surgery (FESS) with sinuplastyBUTTON NASAL SEPTAL 3CMFDAStart: 65-63-0997Ijgmwpujgw endoscopic sinus surgery (FESS) with sinuplastyBUTTON NASAL SEPTAL 3CMFDAStart: 54-88-0170Svtrbxzvvm endoscopic sinus surgery (FESS) with sinuplastyBUTTON NASAL SEPTAL 3CMFDAStart: 10-15-2019 Functional endoscopic sinus surgery (FESS) with sinuplastyBUTTON NASAL SEPTAL 3CMFDAStart: 83-14-6234Wvvfnfdmwx endoscopic sinus surgery (FESS) with sinuplastyBUTTON NASAL SEPTAL 3CMFDAStart: 28-74-8515Eadfibitut endoscopic sinus surgery (FESS) with sinuplastyBUTTON NASAL SEPTAL 3CMFDAStart: 10-15-2019 Functional endoscopic sinus surgery (FESS) with sinuplastyBUTTON NASAL SEPTAL 3CMFDAStart: 25-88-5544Kambkqiure endoscopic sinus surgery (FESS) with sinuplastyBUTTON NASAL SEPTAL 3CMFDAStart: 26-71-6903Orylxijnqn endoscopic sinus surgery (FESS) with sinuplastyBUTTON NASAL SEPTAL 3CMFDAStart: 10-15-2019 Functional endoscopic sinus surgery (FESS) with sinuplastyBUTTON NASAL SEPTAL 3CMFDAStart: 68-67-0539Duqmmgsgxc endoscopic sinus surgery (FESS) with sinuplastyBUTTON NASAL SEPTAL 3CMFDAStart: 25-22-8361Dmdfnxrnac endoscopic sinus surgery (FESS) with sinuplastyBUTTON NASAL SEPTAL 3CMFDAStart: 10-15-2019 Functional endoscopic sinus surgery (FESS) with sinuplastyBUTTON NASAL SEPTAL 3CMFDAStart: 05-78-9301Anellvvsyf endoscopic sinus surgery (FESS) with sinuplastyBUTTON NASAL SEPTAL 3CMFDAStart: 08-04-5295Txrgrttfdt endoscopic sinus surgery (FESS) with sinuplastyBUTTON NASAL SEPTAL 3CMFDAStart: 10-15-2019 Functional endoscopic sinus surgery (FESS) with sinuplastyBUTTON NASAL SEPTAL 3CMFDAStart: 42-38-8989Unotvzvfsi endoscopic sinus surgery (FESS) with sinuplastyBUTTON NASAL SEPTAL 3CMFDAStart: 94-66-0594Jdewhhkxuu endoscopic sinus surgery (FESS) with sinuplastyBUTTON NASAL SEPTAL 3CMFDAStart: 10-15-2019 Functional endoscopic sinus surgery (FESS) with sinuplastyBUTTON NASAL SEPTAL 3CMFDAStart: 38-54-8110Kvnlxvdqmh endoscopic sinus surgery (FESS) with sinuplastyBUTTON NASAL SEPTAL 3CMFDAStart: 78-28-1379Koqhpojimy endoscopic sinus surgery (FESS) with sinuplastyBUTTON NASAL SEPTAL 3CMFDAStart: 10-15-2019 Functional endoscopic sinus surgery (FESS) with sinuplastyBUTTON NASAL SEPTAL 3CMFDAStart: 73-61-2764Umdqwc/ligament bone anchor, non-bioabsorbable ()[id number] FDAStart: 70-41-1071Xojmfd/ligament bone anchor, non-bioabsorbable()[id number] FDA Start: 71-09-0224Anlwcv/ligament bone anchor, non-bioabsorbable ()[id number] FDAStart: 95-74-3151Oudzyq/ligament bone anchor, non-bioabsorbable()[id number] FDAStart: 12-07-2023 Goals DatePatient GoalDesired Activity/StatePersonal health goal Functional Status IgvjRzqggpyfevBasnjbVfifxaiz56-07-1203Tgxysqlqpf statusPatient at [facility] Work Phone: [phone] 229-885102086660-61-8714Jmubzzqjew statusPatient at [facility] Work Phone: Mental Status GijvRfgahteiqqRgiamlIsqwoaka31-16-4865Mzttkzrhe functionCognitive Status Patient at [facility] Work Phone: 1(692) 844-324902-808947-64-3848Ebxqbjoir functionCognitive Status Patient at [facility] Work Phone: Clinical Notes 07-16-2021 to 02-19-2025 Note Date & CpdmLkjiBimigkrb31-65-0240 History of Present illness Narrative* Alana Valverde, [...] nursing note reviewed. Exam conducted with a videotape recording engineer present. Vitals: Estimated body mass index is 40.03 kg/m as calculated from the following: Height as of 08/22/24: 5' 11 . Weight as of this encounter: 287 lb. BP: 128/76 No LMP recorded. Patient is . Assessment/Plan ICD-10-CM 1. Third trimester ([facility]) Z34.93 POCT urinalysis dipstick manually resulted 2. 31 weeks gestation of ([facility]) Z3A.31 3. TSH (thyroid-stimulating hormone deficiency) E03.8 [...] of: Les Martinez DO documented in this encounterHarry S. Truman [facility] Veterans' HospitalThsedxbuxs56-14-5839 History of Present illness Narrative* MELVI Engle [...] is . Assessment/Plan ICD-10-CM 1. Third trimester ([facility]) Z34.93 2. 29 weeks gestation of ([facility]) Z3A.29 POCT urinalysis dipstick manually resulted Return [...] behalf of: MELVI Engle documented in this encounterHarry S. Truman Memorial Veterans' HospitalOjdlbuniqy32-83-6122 History of Present illness Narrative* Mima Duenas [...] nursing note reviewed. Exam conducted with a videotape recording engineer present. Vitals: Estimated body mass index is 38.49 kg/m as calculated from the following: Height as of 08/22/24: 5' 11 . Weight as of this encounter: 276 lb. BP: 122/80 No LMP recorded. Patient is . ASSESSMENT & PLAN ICD-10-CM 1. 26 weeks gestation of ([facility]) Z3A.26 POCT urinalysis dipstick manually resulted 2. Second trimester ([facility]) Z34.92 3. TSH (thyroid-stimulating hormone deficiency) E03.8 [...] of: Mima Duenas NP documented in this encounterHarry S. Truman Memorial Veterans' HospitalFchgjpkckj64-12-0841 Miscellaneous Notes* Telephone Encounter - Roslyn Griffin RN - 01/03/2025 3:44 PM EDT Called patient to schedule her follow up survey in 4-6 weeks per appointment tracker. No answer left message to call back to schedule the follow up ultrasound. documented in this encounterUC Health09-18-2025 Telephone encounter Note* Telephone Encounter - Roslyn Griffin RN - 01/03/2025 3:44 PM EDT Called patient to schedule her follow up survey in 4-6 weeks per appointment tracker. No answer left message to call back to schedule the follow up ultrasound. [facility]09-[facility] History of Present illness Narrative* MELVI Engle [...] Name Age of Onset Skin cancer Mother Julitea velarde Obesity Mother Julieta velarde Thyroid disease Mother Julieta velrade Diabetes Father Delbert velarde Thyroid disease Father [...] PLAN ICD-10-CM 1. 22 weeks gestation of ([facility]) Z3A.22 POCT urinalysis dipstick manually resulted 2. Second trimester ([facility]) Z34.92 POCT urinalysis dipstick manually [...] behalf of: MELVI Engle documented in this encounterHarry S. Truman Memorial Veterans' HospitalEixyhdfyue64-25-1678 History of Present illness Narrative* Enrike Lindquist [...] follows with the behavioral health up in [place] History of migraines. Has been getting some [...] Pee's thyroiditis Hx of iron deficiency anemia Trevor product of in vitro fertilization (IVF) Ovarian [...] mouth in the morning., Disp: , Rfl: ah431-nykx-wmvll acid ( 19) 29 mg iron- 1 [...] Calcium: recommend 1000-1200mg daily; if deficient, recommend 2696-7056 mg PO daily in divided doses Vitamin [...] 5. 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 The soaker should be made awareat the time of [...] Hospital [address] [place] [address] This document was created with [employer] technology. Though I make every effort to review the dictation as it is transcribed, on occasion the spoken word can be misinterpreted by the technology leading to inappropriate words, phrases, or sentences. This note is addressed to the requesting provider as a consultation for clinical guidance. Specificmedical abbreviations are occasionally used and those are generally approved by the [place]?Board of?Obstetrics and?Gynecology?as well as?Marilee s abbreviations. The above plan of care was based solely on the diagnoses for which a consultation was requested. ?More frequent testing may be indicated based on her other medical/obstetrical conditions. The management of other or medical conditions is beyond the scope of requested consultation and will c ontinue to be followed by the primary windows application developer or primary care provider. Note to patient: [...] CF Have you been seen here at [facility] in a previous ? NA Recent ER visits or hospitalizations? See notes above Bring blood sugar log or meter with you today? (Please bring them with you for every visit at [facility]) NA Flu vaccine (Feb-June)? NA Any concerns that you would like me to mention to the provider today? Questions about glucose testing and her having gastric bypass surgery documented in this encounterUC Health08-05-2025 History of Present illness Narrative* Alana Valverde [...] nursing note reviewed. Exam conducted with a videotape recording engineer present. Vitals: Estimated body mass index [...] gonorrhea DNA probe, direct 3. Second trimester ([facility]) Z34.92 POCT urinalysis dipstick manually resulted 4. 18 weeks gestation of ([facility]) Z3A.18 5. Need for maternal serum alpha-protein (MSAFP) screening ([facility]) Z36.1 Alpha fetoprotein, maternal Alpha fetoprotein, maternal 6. Screening, , for anatomic survey ([facility]) Z36.89 US OB 14+ weeks anatomy scan [...] of: Les Martinez DO documented in this encounterHarry S. Truman Memorial Veterans' HospitalGdyneouhtm69-62-5380 History of Present illness Narrative* Mima Duenas [...] nursing note reviewed. Exam conducted with a videotape recording engineer present. Vitals: Estimated body mass index is 31.24 kg/m as calculated from the following: Height as of 08/22/24: 5' 11 . Weight as of this encounter: 224 lb. BP: 110/62 No LMP recorded. Patient is . ASSESSMENT & PLAN ICD-10-CM 1. 13 weeks gestation of ([facility]) Z3A.13 POCT urinalysis dipstick manually resulted 2. Second trimester ([facility]) Z34.92 POCT urinalysis dipstick manually resulted 3. Thyroid disease E07.9 4. H/O gastric sleeve Z90.3 5. H/O iron deficiency anemia Z86.2 6. resulting from in vitro fertilization in first trimester ([facility]) O09.811 Return OB: Patient presents today for [...] of: Les Martinez DO documented in this encounterHarry S. Truman Memorial Veterans' HospitalHyqyceiyvu43-20-1580 Radiology Diagnostic study [facility] [address] [place] [address] [place] [address] Ultrasound Report Signed Patient: Jaz Sanders MR#: [id number] : 1995 Acct:[id number] Age/Sex: 29 / F ADM Date: 5 Loc: ER Room: Type: [facility] ER Attending Dr: Ordering Provider: Kassidy Arriaza [...] Jr., D.ORenae 10/18/2024 2:21 PM Dictation Location: [place] [address] Tech: Natalie Raissa Transcribed By: MAITE 10/18/24 1421 Dictated By: Sravan Dickinson Jr, DO 10/18/24 1419 Signed By: 10/18/24 1421 [facility]06-05-2025 History of Present illness Narrative * Marsha [...] screen, urine; Future Nurse Note: Patient declined [place] at this time. Patient is an IVF from [facility]. OB Intake: Patient presents today for [...] by: Marsha Asif MA documented in this encounterHarry S. Truman Memorial Veterans' HospitalTtfjvbnlnc77-37-4895 NoteHNO ID: [id number] Author: MELODIE HERNANDEZ APRN.HIGH DENSITY PRESS LABORER Service: ? Author Type: Nurse Practitioner Type: [...] 3. Cycle Day: Last menstrual period: 07/19/2024 [place] Protocol: UNIVERSAL PROTOCOL / SAFETY CHECKLIST Procedure [...] Sanders DATE: September 05, 2024 TIME: 10:45 [facility]05-19-2025 History of Present illness Narrative* Manisha [...] 03, 2024 5:39 PM documented in this encounterMemorial Health [facility]05-19-2025 NoteHNO ID: [id number] Author: MANISHA WEAVER APRN.CNP Service: ? Author [...] Plan Move on to OB Manisha Weaver APRN.HIGH DENSITY PRESS LABORER September 03, 2024 5:39 [facility]05-15-2025 NoteHNO ID: [id number] Author: MIKEY TORRES MD Service: ? Author Type: Physician Type: Progress Notes Filed: 08/30/2024 16:36 Note Text: Viable ratliff IUP Size equal Date. Plan: patient to follow up with her ob for care. Stacy Banuelos [facility]05-15-2025 History of Present illness Narrative* Mikey [...] scheduled Melodie Hernandez APRN.JARROD documented in this encounterMemorial Health [facility]05-13-2025 NoteHNO ID: [id number] Author: MELODIE HERNANDEZ APRN.CNP Service: ? Author [...] scan next week as scheduled Melodie Hernandez APRN.CNPRegional Medical Center05-09-2025 Telephone encounter Note* Telephone Encounter - [...] open slot. Call to patient needed: no [facility]05-09-2025 Miscellaneous Notes* Telephone Encounter - Melodie [...] the patient for the following- Location: [facility] Provider: nurse Visit type: scan Reason for visit/appointment notes: scan Date: 08/28 Time (requested): 1110 If slot is full, please schedule the closest open slot. Call to patient needed: no * Telephone Encounter - Angella Mccarthy - 08/23/2024 10:37 AM EDT Name: Jaz Sanders called today. : 1995 (home) [phone] (cell) Reason for call: pt called today informing the nurse she has been experiencing pain of level 4 from1-10. Pt has been experiencing pain for 2 day. 5 weeks today. The patients preferred pharmacy has been captured for this encounter? Angella Morillo Surgical Nurse Practitioner documented in this encounterMemorial Health [facility]05-09-2025 Telephone encounter Note * Telephone Encounter - Arminda Ward RN - 08/24/2024 1:58 PM EDT See 08/23/24 LIBBY Ward RN August 24, 2024 1:58 PM [facility]05-09-2025 Miscellaneous Notes* Telephone Encounter - Arminda Ward RN - 08/24/2024 1:58 PM EDT See 08/23/24 LIBBY Ward RN August 24, 2024 1:58 PM * Telephone Encounter - Manisha Ding - 08/24/2024 11:52 AM EDT Pt would like a call back documented in this encounterMemorial Health System [facility]05-09-2025 Telephone encounter Note * Telephone Encounter - Manisha Ding - 08/24/2024 11:52 AM EDT Pt would like a call back [facility]05-08-2025 Telephone encounter Note* Telephone Encounter - Angella Mccarthy - 08/23/2024 10:37 AM EDT Name: Jaz Sanders called today. : 1995 (home) [phone] (cell) Reason for call: pt called today informing the nurse she has been experiencing pain of level 4 from1-10. Pt has been experiencing pain for 2 day. 5 weeks today. The patients preferred pharmacy has been captured for this encounter? Angella Morillo Surgical Nurse Practitioner [facility]05-08-2025 Telephone encounter Note* Telephone Encounter - Arminda Ward RN - 08/23/2024 8:53 AM EDT See 08/20 Distance health visit Arminda Ward RN August 23, 2024 8:53 AM [facility]05-08-2025 Miscellaneous Notes* Telephone Encounter - Arminda Ward RN - 08/23/2024 8:53 AM EDT See 08/20 Distance health visit Arminda Ward RN August 23, 2024 8:53 AM documented in this encounterMemorial Health System [facility]05-07-2025 History of Present illness Narrative* Darleen [...] levothyroxine 50 mcg daily, administered in the retirement specialist on an empty stomach. There have been [...] 1 year (around 08/22/2025). documented in this encounterHarry S. Truman Memorial Veterans' HospitalKiopqmauxv42-35-0080 NoteHNO ID: [id number] Author: MELODIE HERNANDEZ APRN.HIGH DENSITY PRESS LABORER Service: ? Author Type: Nurse Practitioner Type: [...] visit. Either the patient or their legal branch customer service representative has been informed of the [...] providers Schedule with OB: 09/13 Melodie Hernandez APRN.HIGH DENSITY PRESS LABORER August 20, 2024 8:33 AM Please schedule the patient for the following- Location: [place] Provider: nurse Visit type: Reason for visit/appointment notes: scan Date: 09/03 Time (requested): 1040 If slot is full, please schedule the closest open slot. Call to patient needed: no I spent a total of 30 minutes on the date of the service which included preparing to see the patient, hcnf-wg-ghrr patient care, completing clinical documentation, obtaining and/or [...] be grammatical and typographical errors missed in proofreading.[facility]05-05[facility] History of Present illness Narrative* Melodie [...] visit. Either the patient or their legal branch customer service representative has been informed of the [...] schedule the patient for the following- Location: [place] Provider: nurse Visit type: Reason for visit/appointment notes: scan Date: 09/03 Time (requested): 1040 If slot is full, please schedule the closest open slot. Call to patient needed: no I spent a total of 30 minutes on the date of the service which included preparing to see the patient, umtl-mj-rfwk patient care, completing clinical documentation, obtaining and/or [...] errors missed in proofreading. documented in this encounterMemorial Health System [facility]05-01-2025 Telephone encounter Note * Telephone Encounter - Daniel Hanna APRN.CNP - 08/16/2024 5:15 PM EDT Called patient back to phone number listed in [employer]-no answer. Lm for patient to look out for Mychart message. Daniel Hanna APRN.CNP August 16, 2024 5:15 PM [facility]05-01-2025 Miscellaneous Notes* Telephone Encounter - Daniel Hanna APRN.CNP - 08/16/2024 5:15 PM EDT Called patient back to phone number listed in [employer]-no answer. Lm for patient to look out for Mychart message. Daniel Hanna APRN.CNP August 16, 2024 5:15 PM * Telephone Encounter - Angella Mccarthy - 08/16/2024 12:29 PM EDT Name: Jaz Sanders called today. : 1995 (home) [phone] (cell) Reason for call: pt called that she got positive test, she has been having having cramping since last night , it happens every hours for couple minutes. The patients preferred pharmacy has been captured for this encounter? yes Angella Morillo Surgical Nurse Practitioner documented in this encounterMemorial Health System [facility]05-01-2025 Telephone encounter Note * Telephone Encounter - Angella Mccarthy - 08/16/2024 12:29 PM EDT Name: Jaz Sanders called today. : 1995 (home) [phone] (cell) Reason for call: pt called that she got positive test, she has been having having cramping since last night , it happens every hours for couple minutes. The patients preferred pharmacy has been captured for this encounter? yes Angella Morillo Surgical Nurse Practitioner [facility]04-30-2025 Telephone encounter Note* Telephone Encounter - Manisha Ding - 08/15/2024 2:10 PM EDT Pt is preg and wants to know if she can take benadryl due to her having hives [facility]04-30-2025 Miscellaneous Notes* Telephone Encounter - Manisha Ding - 08/15/2024 2:10 PM EDT Pt is preg and wants to know if she can take benadryl due to her having hives documented in this encounterMemorial Health System [facility]04-15-2025 NoteHNO ID: [id number] Author: DOMINGUEZ BARRY, ? Service: ? Author Type: Bio Medical Technician Type: Progress Notes Filed: 09/05/2024 22:45 Note Text: IUI Cryobio Donor # [id number] Pre: frozen washed specimen Post: 82 M/ml, 67% Insem # 27.5 millionRegional Medical Center04-15-2025 NoteHNO ID: [id number] Author: DOMINGUEZ BARRY, ? Service: ? Author Type: Bio Medical Technician Type: Progress Notes Filed: 07/31/2024 15:26 Note Text: Thaw for IUI. Dominguez [facility] History of Present illness Narrative* Dominguez Barry - 07/31/2024 3:25 PM EDT Thaw for IUI. Dominguez Barry documented in this encounterMem[facility]25 NoteHNO ID: [id number] Author: DOMINGUEZ BARRY, ? Service: ? Author Type: Bio Medical Technician Type: Progress Notes Filed: 09/05/2024 22:45 Note Text: IUI specimen released to provider Dominguez Barry July 31, 2024 3:24 [facility]04-15-2025 NoteHNO ID: [id number] Author: MUSTAPHA TELLO MA Service: ? Author Type: Boiler Tube Blower Type: Progress Notes Filed: 07/31/2024 15:12 Note Text: Patient verified by full name and date of . Jaz Sanders is here today for an IUI. LMP: 07/19/2024 Natural cycle IUI Timed With: Ovulation Predictor Kit , Date: 07/30/2024 Management Internship offered: Patient declines Mustapha Tello MA July 31, 2024 3:12 [facility]04-14-2025 Telephone encounter Note* Telephone Encounter - Melodie Hernandez APRN.CNP - 07/30/2024 5:58 PM EDT patient's OPK today was dark but not positive Plan: test again tomorrow. 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, schedule IUI the same day Melodie Hernandez APRN.CNP July 30, 2024 6:00 PM [facility]04-14-2025 Miscellaneous Notes* Telephone Encounter - Melodie Hernandez APRN.CNP - 07/30/2024 5:58 PM EDT patient's OPK today was dark but not positive Plan: test again tomorrow. 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, schedule IUI the same day Melodie Hernandez APRN.CNP July 30, 2024 6:00 PM * Telephone Encounter - Manisha Ding - 07/30/2024 3:15 PM EDT N- ivf Pt has questions regarding IUI documented in this encounterMem[facility]04-14-[facility]25 Telephone encounter Note * Telephone Encounter - Manisha Ding - 07/30/2024 3:15 PM EDT N- ivf Pt has questions regarding IUI [facility]03-23-2025 NoteHNO ID: [id number] Author: NICHELLE GONZALEZ, ? Service: ? Author Type: Bio Medical Technician Type: Progress Notes Filed: 07/19/2024 07:50 Note Text: IUI Cryobio #[id number] Washed frozen specimen Post: 31 m/ml, 77% [facility]sem[facility] History of Present illness Narrative* Nichelle Gonzalez E - 07/08/2024 8:07 AM EDT IUI Cryobio #[id number] Washed frozen specimen Post: 31 m/ml, 77% Insem#: 10.8 million * Nichelle Gonzalez - 07/07/2024 10:10 AM EDT IUI specimen released to provider Nichelle Gonzalez July 07, 2024 10:10 AM documented in this encounterMemorial [facility]03-22-2025 NoteHNO ID: [id number] Author: NICHELLE GONZALEZ, ? Service: ? Author Type: Bio Medical Technician Type: Progress Notes Filed: 07/19/2024 07:50 Note Text: IUI specimen released to provider Nichelle Gonzalez July 07, 2024 10:10 [facility]03-22-2025 NoteHNO ID: [id number] Author: MIKEY TORRES MD Service: ? Author [...] Cycle Day: 14 Last menstrual period: 06/24/2024 [place] Protocol: UNIVERSAL PROTOCOL / SAFETY CHECKLIST Procedure [...] the primary surgeon/proceduralist with assistance. Stacy Banuelos, [facility]03-22-2025 Procedure note* Mikey Torres MD - [...] Cycle Day: 14 Last menstrual period: 06/24/2024 [place] Protocol: UNIVERSAL PROTOCOL / SAFETY CHECKLIST Procedure [...] surgeon/proceduralist with assistance. Stacy Banuelos MD [facility]03-22-2025 Procedure note* Mikey Torres MD - [...] Cycle Day: 14 Last menstrual period: 06/24/2024 [place] Protocol: UNIVERSAL PROTOCOL / SAFETY CHECKLIST Procedure [...] assistance. Stacy Banuelos MD documented in this encounterMemorial [facility]03-22-2025 NoteHNO ID: [id number] Author: NICHELLE GONZALEZ, ? Service: ? Author Type: Bio Medical Technician Type: Progress Notes Filed: 07/07/2024 09:41 Note Text: Thaw for IUI [facility] History of Present illness Narrative* Nichelle Gonzalez - 07/07/2024 9:41 AM EDT Thaw for IUI Nichelle Gonzalez documented in this encounterMemorial [facility]03-21-2025 Telephone encounter Note * Telephone Encounter - Becki Isaacs PA-C - 07/06/2024 3:24 PM EDT Called the pt back. Pt had an US done 07/04/24--Possible small 4 mm intracervical canal polyp. No other abnormal findings. Advised to move on with IUI tomorrow. FYI: Dr. Guy and TY Vega. Please let me know if any different instructions. Becik Isaacs PA-C July 06, 2024 3:26 PM [facility]03-21-2025 Miscellaneous Notes* Telephone Encounter - Becki [...] iui tomorrow. Pleasecall patient. documented in this encounterMemorial [facility]03-21-2025 Telephone encounter Note * Telephone Encounter - Sivan Roberto - 07/06/2024 2:39 PM EDT Patient states she is calling back unsure about if she is okay to proceed with iui tomorrow. Pleasecall patient. [facility]03-21-2025 Telephone encounter Note* Telephone Encounter - Arminda Ward RN - 07/06/2024 11:17 AM EDT See other TE for 07/04 Arminda Ward RN July 06, 2024 11:17 AM [facility]03-21-2025 Miscellaneous Notes* Telephone Encounter - Arminda [...] to be removed first. documented in this encounterMemorial [facility]03-20-2025 Telephone encounter Note * Telephone Encounter - Sivan Roberto - 07/05/2024 3:02 PM EDT On day 11 now, inquiring about if okay to proceed with iui with cervical polyp. Patient believes itwill be tomorrow or Tuesday for iui- inquiring if polyp needs to be removed first. [facility]03-19-2025 Telephone encounter Note* Telephone Encounter - [...] Hernandez APRN.CNP July 04, 2024 7:30 PM [facility]03-19-2025 Miscellaneous Notes* Telephone Encounter - Melodie [...] 04, 2024 7:30 PM documented in this encounterMemorial [facility]03-19-2025 NoteHNO ID: [id number] Author: IGNACIO GUY MD Service: ? Author Type: Physician Type: Progress Notes Filed: 07/04/2024 16:27 Note Text: [facility]CPrem[facility]03-19-2025 History of Present illness Narrative* Ignacio Guy MD - 07/04/2024 4:27 PM EDT 1 documented in this encounterMemorial Health [facility]02-22-2025 NoteHNO ID: [id number] Author: IGNACIO GUY MD Service: ? Author [...] Cycle Day: 13 Last menstrual period: 05/28/2024 [place] Protocol: UNIVERSAL PROTOCOL / SAFETY CHECKLIST Procedure [...] was discussed with the patient or authorized branch customer service representative. The patient or authorized branch customer service representative has agreed to proceed with the sensitive examination. (Sensitive examination includes inspection and/or palpation of the breasts, pelvis, prostate and anorectal regions) Patient declined videotape recording engineer. Vidhi Sheldon MD IUI IUI Date: 06/09/24 [...] stopped. Will get pelivc scan here at [facility] if not with this IUI prior pt proceeding with another attmept at IUI. Ignacio Guy MD June 09, 2024 12:30 PM SIGNATURE: Vidhi Sheldon MD PATIENT NAME: Jaz Sanders DATE: June 09, 2024 TIME: 12:01 [facility]02-22-2025 Procedure note* Vidhi Sheldon MD - [...] Cycle Day: 13 Last menstrual period: 05/28/2024 [place] Protocol: UNIVERSAL PROTOCOL / SAFETY CHECKLIST Procedure [...] was discussed with the patient or authorized branch customer service representative. The patient or authorized branch customer service representative has agreed to proceed with the sensitive examination. (Sensitive examination includes inspection and/or palpation of the breasts, pelvis, prostate and anorectal regions) Patient declined videotape recording engineer. Vidhi Sheldon MD IUI IUI Date: 06/09/24 [...] stopped. Will get pelivc scan here at [facility] if not with this IUI prior pt proceeding with another attmept at IUI. Ignacio Guy MD June 09, 2024 12:30 PM SIGNATURE: Vidhi Sheldon MD PATIENT NAME: Jaz Sanders DATE: June 09, 2024 TIME: 12:01 PM [facility] Work Phone: 1(661) 649-526202-22-2025 Procedure note* Vidhi Sheldon MD - 06/09/2024 [...] Cycle Day: 13 Last menstrual period: 05/28/2024 [place] Protocol: UNIVERSAL PROTOCOL / SAFETY CHECKLIST Procedure [...] was discussed with the patient or authorized branch customer service representative. The patient or authorized branch customer service representative has agreed to proceed with the sensitive examination. (Sensitive examination includes inspection and/or palpation of the breasts, pelvis, prostate and anorectal regions) Patient declined videotape recording engineer. Vidhi Sheldon MD IUI IUI Date: 06/09/24 [...] stopped. Will get pelivc scan here at [facility] if not with this IUI prior pt proceeding with another attmept at IUI. Ignacio Guy MD June 09, 2024 12:30 PM SIGNATURE: Vidhi Sheldon MD PATIENT NAME: Jaz Sanders DATE: June 09, 2024 TIME: 12:01 PM documented in this encounterMemorial Health [facility]02-22-2025 NoteHNO ID: [id number] Author: NICHELLE GONZALEZ, ? Service: ? Author Type: Bio Medical Technician Type: Progress Notes Filed: 06/09/2024 12:30 Note Text: IUI Cryobio #: [id number] Washed frozen sample Post: 42 m/ml, 74% Insem#: 15.5 millionReg[facility]02-22-2025 History of Present illness Narrative* Nichelle Gonzalez - 06/09/2024 11:52 AM EST IUI Cryobio #: [id number] Washed frozen sample Post: 42 m/ml, 74% Insem#: 15.5 million * Nichelle Gonzalez - 06/09/2024 11:24 AM EST IUI specimen released to provider Nichelle Gonzalez June 09, 2024 11:24 AM documented in this encounterMemorial Health [facility]02-22-2025 NoteHNO ID: [id number] Author: NICHELLE GONZALEZ, ? Service: ? Author Type: Bio Medical Technician Type: Progress Notes Filed: 06/09/2024 11:48 Note Text: Thaw for IUI [facility]helle E [facility]lyReg[facility] Center02-22-2025 History of Present illness Narrative* Nichelle Gonzalez - 06/09/2024 11:47 AM EST Thaw for IUI Nichelle Colt Larrykimberly documented in this encounterMemorial Health [facility]02-22-2025 NoteHNO ID: [id number] Author: NICHELLE GONZALEZ, ? Service: ? Author Type: Bio Medical Technician Type: Progress Notes Filed: 06/09/2024 12:30 Note Text: IUI specimen released to provider Nichelle Gonzalez June 09, 2024 11:24 [facility]01-22-2025 Instructions* Patient Instructions* Melodie Hernandez APRN.HIGH DENSITY PRESS LABORER - 05/09/2024 9:08 AM EST Images from [...] sent your chart to the front end specialist today. Treatment plan: Natural cycle/IUI x 3 cycles. Please schedule a follow up visit with Dr. Brooks velasco are not after 3 cycles. Sperm Ordering Instructions We need 1 vial per cycle. You will likely need 3-6 vials to establish a . You are welcome to buy more than one and store with the [facility]. Mailing address: Attention: Nichelle Gonzalez [address] [place] [address], [place] [address] Storage at the [facility] is available. Fees are yearly and only start once you are not actively trying. Please ask the financial team ([phone]) for current cost information. Donor Insemination Scheduling Instructions Please call during the first business day of your menstrual cycle to let the front end specialist know you will be testing and doing [...] please call the [place] [address] Available every day, including weekends and holidays (except [place] and New Years.) Weekday IUI scheduling The day you get your LH surge, please call [phone] between 8:00am - 12:00pm to schedule your insemination for the next day. If you call after 12pm, we may not be able to schedule your appointment. IUI s are done by appointment only. You will make 2 appointments -an arrival time and a procedure time. [place]: [address] [place] [address], [address] [place] [address] Available every day, including weekends and holidays (except [place] and New Years.) Available for IUI using fresh and frozen samples. Check in location for sperm wash and IUI: [address] [facility]. The sperm wash takes 60-90 minutes. [...] do another IUI: Call the front end specialist to make sure you are financially cleared. Ask to speak to an SKYLAR to confirm your treatment plan. Important phone number: [phone] documented in this encounterMemorial Health [facility]01-22-2025 NoteHNO ID: [id number] Author: MELODIE HERNANDEZ APRN.CNP Service: ? Author [...] visit. Either the patient or their legal branch customer service representative has been informed of the [...] negative donor is a carrier of: CFTR, [id number] Vial types available: IUI and ART Considerations [...] which included preparing to see the patient, scxm-pl-pccy patient care, completing clinical documentation, obtaining and/or [...] medical team. Standard se (more content not included)...[facility] History of Present illness Narrative* [...] visit. Either the patient or their legal branch customer service representative has been informed of the [...] them. No double whammies. Sperm bank/donor #: [employer] [id number] Blood type: A negative CMV Status: negative Genetic carrier considerations: patient Myriad negative donor is a carrier of: CFTR, [id number] Vial types available: IUI and ART Considerations when using this donor: IUI vial recommended Green light Plan: Donor Sperm episode/checklist updated Pending checklist items: Progesterone blood test, IUI consent, order sperm Confirmed best vial type to order: IUI Melodie Hernandez APRN.HIGH DENSITY PRESS LABORER May 09, 2024 8:12 AM I spent a total of 60 minutes on the date of the service which included preparing to see the patient, cxql-ej-bqgo patient care, completing clinical documentation, obtaining and/or [...] errors missed in proofreading. documented in this encounterMemorial Health [facility]01-15-2025 History of Present illness Narrative* Nola Enriquez, PhD - 05/02/2024 2:00 PM EST Psychosocial Consultation for Third Green Party Reproduction Virtual visit with audio and visual equipment POS 10 No SI, Falls, Tobacco use On May 02, 2024, I met virtually with Jaz and Sravan Sanders. They were referred by Melodie Hernandez at [facility] for their required psychosocial consultation regarding third republican reproduction. Relevant History Jaz, 29, and Demetrius, 26, have been together for 8.5 years and for 6.5 years. 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 Demetrius also works at that [employer]. The couple has been trying to [...] Lynda's have already chosen a donor from [employer] in [place]. They chose this donor because heis CMV-, [...] third republican reproductive option. documented in this [facility] Work Phone: 1(579) 195-365711-24-2024 NoteHNO ID: [id number] Author: MELODIE HERNANDEZ APRN.HIGH DENSITY PRESS LABORER Service: ? Author Type: Nurse Practitioner Type: [...] visit. Either the patient or their legal branch customer service representative has been informed of the [...] Practice cycle Plan: Episode created.Reviewed checklist - Engiverhart message sent Practice cycle: recommended OPKs to test for ovulation and timing of IUIs, patient to call with +OPK, confirm ovulation with progesterone level Follow up once checklist is complete to discuss test results and next steps. Melodie Hernandez APRN.HIGH DENSITY PRESS LABORER March 11, 2024 10:42 PM I spent a total of 55 minutes on the date of the service which included preparing to see the patient, guws-nu-iqgw patient care, completing clinical documentation, obtaining and/or [...] be grammatical and typographical errors missed in proofreading.[facility]11[facility] History of Present illness Narrative* Melodie Hernandez APRN.HIGH DENSITY PRESS LABORER - 03/11/2024 10:42 PM EST Images from [...] visit. Either the patient or their legal branch customer service representative has been informed of the [...] Practice cycle Plan: Episode created.Reviewed checklist - Spiralcat message sent Practice cycle: recommended OPKs to [...] which included preparing to see the patient, dmnu-kw-cbzq patient care, completing clinical documentation, obtaining and/or [...] errors missed in proofreading. documented in this encounterMemorial Health [facility]11-22-2024 Instructions* Patient Instructions* Melodie Hernandez APRN.CNP [...] question, please call the office. ~Silvia MELY Hernandez.[facility] [phone] Donor Sperm Checklist Donor Sperm Labs Mandatory [...] Sravan must be present Amanda Gillespie MD ([place]) - [phone] Rani Sims (Filomena Hernandez) - [phone] - virtual visit Nola Destin, - virtual [...] to date). Please get scheduled with your upholsterer helper or pcp if needed. Practice with Ovulation Predictor Kit (OPK) First day of full flow is cycle day #1. Start using on ovulation predictor kit on cycle day 10. Use your OPK once a day, in the morning with your second urine of the day. Send in a Astrohart message when you get a positive OPK. [...] Once your checklist is complete, please call [phone] to get scheduled for a donor sperm follow up appointment. Sperm Bank Website [place] [facility] https://www.cryobank.com/ [facility] https://cryobio.com/ [employer] https://www.cryosinternational.com/ [place] [facility] https://Sphere 3d.TheSedge.org/ [place] [facility] https://www.[employer]well [employer].TheSedge.org/ [facility] [place] https://www.thespermbankApax Group.org/ [employer] [facility] https://www.Involver.TheSedge.org/ [employer] https://www.[employer].TheSedge.org/ If you would like to start browsing [...] is needed. Test: CPT Code: Blood type 11229 HIV 06787 CMV IgG 43055 CMV IgM 35681 Syphilis 89140 Hepatitis B Surface Ag 69002 Hepatitis B Core Ab, IgG and IgM 88505 Hepatitis C Ab 32551 Rubella 63336 Varicella 47045 Chlamydia 99376 Gonorrhea 17119 For the above tests, reference the diagnosis code of Z11.9 documented in this encounterMemorial Health [facility]11-12-2024 Plan of care note* JAMEL Plan [...] for three cycles. They will meet with RESPIRATORY CARE PROGRAM DIRECTOR to review the IUI checklist and sign consents. I spent a total of 45 minutes on the date of the service which included preparing to see the patient, dylq-sa-aogz patient care, completing clinical documentation, counseling and educating the patient/family/caregiver, and ordering medications, tests, or procedures. Ignacio Guy MD [facility]11-12-2024 Miscellaneous Notes* JAMEL Plan Note - Ignacoi Guy MD - 02/28/2024 2:59 PM EST [...] for three cycles. They will meet with RESPIRATORY CARE PROGRAM DIRECTOR to review the IUI checklist and sign consents. I spent a total of 45 minutes on the date of the service which included preparing to see the patient, gzfm-dj-yvcu patient care, completing clinical documentation, counseling and educating the patient/family/caregiver, and ordering medications, tests, or procedures. Ignacio Guy MD documented in this encounterMemorial Health [facility]11-12-2024 Instructions* Patient Instructions* Ignacio Guy MD - 02/28/2024 2:47 PM EST Dear Jaz Sanders Using [facility] at the [facility] requires some set up (outlined below). Requirements to use donor sperm at the [facility]: Teaching with JAMEL SKYLAR - please call [phone] to schedule a donor sperm teach with [...] to help with the donor selection process. [employer] Carrier Screen is the test ordered. Processing time takes 2-3 weeks. If your insurance doesn't cover it, the self-pay de oliveira is ~$250. Counselor You and your partner/spouse (if applicable) must see a counselor for a donor sperm assessment. Amanda Gillespie MD ([place]) - [phone] Rani Sims ([place]) - [phone] Doris Lama ([place]) - [phone] Consent form - must be signed by [...] Required Tests Test: CPT Code: Blood type 23419 HIV 66948 CMV IgG 10820 CMV IgM 80890 Syphilis 61621 Hepatitis B Surface Ag 75843 Hepatitis B Core Ab, IgG and IgM 59348 [place] 76257 Rubella 71251 Varicella 22943 Chlamydia 39221 Gonorrhea 93192 For the above tests, reference the diagnosis code of Z31.49. mSpoke Foresight Carrier Screen - mSpoke will check coverage for you. For this [...] your test results into consideration. Sperm Bank [employer] [place] [facility] ([place]) [facility] [employer] ([facility] [place]) [employer] [facility] *Do not order any sperm until your checklist is complete. We will review ordering instructions at your follow up visit. Next Steps: Call insurance to verify coverage for donor sperm panel. Schedule donor sperm teach with my nurse practitioner, Silvia Hernandez. Ignacio Guy MD [phone] documented in this encounterMemorial Health System [facility]11-12-2024 NoteHNO ID: [id number] Author: IGNACIO GUY MD Service: ? Author [...] OB History Obstetric History No data available SDE HISTORY: Patient's last menstrual period was 02/18/2024. 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 They will meet with RESPIRATORY CARE PROGRAM DIRECTOR to review the IUI checklist and sign consents. I spent a total of 45 minutes on the date of the service which included preparing to see the patient, mwnn-xo-kbnl patient care, completing clinical documentation, counseling and educating the patient/family/caregiver, and ordering medications, tests, or procedures. Ignacio Guy [facility]11-12-2024 History of Present illness Narrative* Ignacio [...] OB History Obstetric History No data available SDE HISTORY: Patient's last menstrual period was 02/18/2024. 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 They will meet with RESPIRATORY CARE PROGRAM DIRECTOR to review the IUI checklist and sign consents. I spent a total of 45 minutes on the date of the service which included preparing to see the patient, ehdp-od-usek patient care, completing clinical documentation, counseling and educating the patient/family/caregiver, and ordering medications, tests, or procedures. Ignacio Guy MD documented in this encounterMemorial Health [facility]11-11-2024 Evaluation note* Diagnosis Onset Date Resolution Status Admit Date Degenerative superior labral anterior-to -posterior (SLAP) tear of right matthias acuteNovember 2023 2:25pmLaxity of ligamentacuteNovember 2023 2:25pm Multidirectional instability of glenohumeral jointacuteNovember 2023 2:25pmOther instability, right shoulderacuteNovember 2023 2:25pmRight carpal tunnel syndromeacuteNovember 2023 2:25pmStatus post arthroscopy of right shoulderacuteNovember 2023 2:25pmStatus post surgerynoneactive February 27, 2024 2:25pmDegenerative superior labral ospoufcx-dx-zfagnzvax (SLAP) tear of right shoacuteJanuary 2024 2:29pmLaxity of ligamentacute April 23, 2024 2:29pmMultidirectional instability of glenohumeral jointacute April 23, 2024 2:29pmOther instability, right shoulderacuteJanuary 2024 2:29pmRight carpal tunnel syndromeacuteJanuary 2024 2:29pmStatus post arthroscopy of right shoulderacuteJanuary 2024 2:29pm [facility] Work Phone: [phone] [id number] Evaluation note* Diagnosis Onset Date Resolution Status Admit Date Degenerative superior labral anterior-to -posterior (SLAP) tear of right matthias acuteNovember 2023 2:25pmLaxity of ligamentacuteNovember 2023 2:25pm Multidirectional instability of glenohumeral jointacuteNovember 2023 2:25pmOther instability, right shoulderacuteNovember 2023 2:25pmRight carpal tunnel syndromeacuteNovember 2023 2:25pmStatus post arthroscopy of right shoulderacuteNovember 2023 2:25pmStatus post surgerynoneactive February 27, 2024 2:25pmDegenerative superior labral dnxbkdah-et-tkidydfqh (SLAP) tear of right shoacuteJanuary 2024 2:29pmLaxity of ligamentacute April 23, 2024 2:29pmMultidirectional instability of glenohumeral jointacute April 23, 2024 2:29pmOther instability, right shoulderacuteJanuary 2024 2:29pmRight carpal tunnel syndromeacuteJanuary 2024 2:29pmStatus post arthroscopy of right shoulderacuteJanuary 2024 2:29pmAcute urticariaacute April 26, 2024 8:29amHypothyroidacuteJanuary 2024 8:29amOther chronic painacuteJanuary 2024 8:29am [facility] Work Phone: 1(702) 282-547811-04-2024 History of Present illness Narrative* Marsha Asif [...] nursing note reviewed. Exam conducted with a videotape recording engineer present. Vitals: Estimated body mass index [...] behalf of: TRENT Engle documented in this encounterHarry S. Truman [facility]' HospitalEqvnbymqfd28-13-5060 Note [id number]#1.00[facility]09-03-2024 Evaluation note* Diagnosis Onset Date Resolution Status Admit Date Degenerative superior labral anterior-to -posterior (SLAP) tear of right matthias acuteSeptember 2023 10:11amLaxity of ligamentacuteSeptember 2023 10:11amMultidirectional instability of glenohumeral jointacuteSeptember 2023 10:11amOther instability, right shoulderacuteSeptember 2023 10:11am Right carpal tunnel syndromeacuteSeptember 2023 10:11amStatus post arthroscopy of right shoulderacuteSeptember 2023 10:11amStatus post surgery noneactiveSeptember 2023 10:11amDegenerative superior labral nlcveeqt-qc-dnjpwtizm (SLAP) tear of right shoacuteOctober 2023 11:58am Laxity of ligamentacuteOctober 2023 11:58amMultidirectional instability of glenohumeral jointacuteOctober 2023 11:58amOther instability, right shoulderacuteOctober 2023 11:58amRight carpal tunnel syndromeacuteOctober 2023 11:58amStatus post arthroscopy of right shoulderacuteOctober 2023 11:58amStatus post surgerynoneactiveOctober 2023 11:58amDegenerative superior labral pcmpmczj-go-uqdxolant (SLAP) tear of right shoacuteNovember 2023 2:25pmLaxity of ligamentacuteNovember 2023 2:25pm Multidirectional instability of glenohumeral jointacuteNovember 2023 2:25pmOther instability, right shoulderacuteNovember 2023 2:25pmRight carpal tunnel syndromeacuteNovember 2023 2:25pmStatus post arthroscopy of right shoulderacuteNovember 2023 2:25pmStatus post surgerynoneactive November 2023 2:25pm [facility] Work Phone: 1(408) 340-493807-17-2024 NoteEducation Materials Orthopedics Musculoskeletal Pain Musculoskeletal pain [...] mouth or applied to the skin. Take ysqf-wsr-kjvvtip and prescription medicines only as told by [...] provider. Document Revised: 08/07/2020 Document Reviewed: 07/16/2020 [employer] Patient Education ? 2022 [employer].[facility] NorthIlloswnb15-00-6376 Evaluation note* Encounter Date Diagnosis Assessment Notes Treatment Notes Treatment Clinical Notes Apr, Intertrigo (ICD-10 - L30.4) [facility] Other 01-30-2024 Evaluation note* Encounter Date Diagnosis [...] pain of right shoulder (ICD-10 - M25.511) [facility] Other 01-05-2024 Evaluation note* Encounter Date Diagnosis Assessment Notes Treatment Notes Treatment Clinical Notes Apr, Other iron deficiency anemia (IC D-10 - D50.8) [facility] Other 12-28-2023 Evaluation note* Encounter Date Diagnosis Assessment Notes Treatment Notes Treatment Clinical Notes Mar, Vitamin D deficiency (ICD-10 - E 55.9) [facility] Other 10-23-2023 Evaluation note* Encounter Date Diagnosis [...] agreement for this and referral was given. [facility] Other 09-21-2023 Evaluation note* Encounter Date Diagnosis Assessment Notes Treatment Notes Treatment Clinical Notes Dec, Other iron deficiency anemia (IC D-10 - D50.8) Dec,Low folic acid (ICD-10 - E53.8) [facility] Other 09-11-2023 Evaluation note* Encounter Date Diagnosis [...] andcontinue to do the exercises for strength. [facility] Other 07-06-2023 Evaluation note* Encounter Date Diagnosis Assessment Notes Treatment Notes Treatment Clinical Notes Oct, Iron deficiency (ICD-10 - E61.1) [facility] Other 06-26-2023 Evaluation note* Encounter Date Diagnosis [...] symptoms and causing pain down the arm. [facility] Other 06-15-2023 Evaluation note* Encounter Date Diagnosis [...] verbalizes understanding and agrees c tx plan. [facility] Other 05-10-2023 Evaluation note* Encounter Date Diagnosis [...] follow-up if no improvement. She verbalizes understnading. [facility] Other 05-05-2023 Evaluation note* Encounter Date Diagnosis Assessment Notes Treatment Notes Treatment Clinical Notes August, Acquired hypothyroidism (ICD-10 - E03.9) Discussed with pt symptoms and lab resutls. Discussed treatment and evaluation. Referral placed to Dr. Sinclair. August,Hashimoto's disease (ICD-10 - E06.3) [place] [facility] Other 02-24-2023 Progress note Author Farhad [facility] June 11, 2022 1:16pmNote Date/TimeFebruary 2022 1:07[place] [address] Hospitalist Progress Note Signed Patient: Jaz Sanders MR#: [id number] : 1995 Acct:[id number] Age/Sex: 27 / F Adm Date: 3 Loc: 4N Room: 0V8828-8 Type: ADM IN Attending Dr: Farhad Gallego [...] days. Patient has an appointment with her BANANA CARRIER next week. Educated her to go to ED if she continues to have heavy bleeding with symptoms, she verbalized understanding. We will send patient home on iron supplements and docusate as needed for constipation Patient is being discharged today. Documented By: Farhad Gallego MD 06/11/22 1306 Signed By: <Electronically signed by Farhad Gallego MD> 06/11/22 1316 [facility] Work Phone: 1(471) 287-840902-23-2023 History and physical note Author Farhad Gallego [facility] June 10, 2022 6:28pmNote Date/TimeFebruary 2022 5:39pmBat[place] [address] Hospitalist H&P Signed Patient: Jaz Sanders MR#: [id number] : 1995 Acct:[id number] Age/Sex: 27 / F Adm Date: 3 Loc: Room: [address] [place] [address] Type: ADM INOo Attending Dr: Farhad Gallego MD Copies to: MD Amanda Correa, FIBERGLASS TECHNICIAN, HIGH DENSITY PRESS LABORER~ HPI DATE OF EXAMINATION: 06/10/22 CHIEF COMPLAINT: [...] % (Auto) 41.3 % (.) 06/10/22 14:51 Lyman % (Auto) 6.8 % (.) 06/10/22 14:51 Eos % (Auto) 5.0 % (.) 06/10/22 14:51 Baso % (Auto) 1.8 % (.) 06/10/22 14:51 Nucleat RBC Rel Count 0.1 /100 WBC (0-0.5) 06/10/22 14:51 Neut # (Auto) 2.4 x10E3/uL (1.8-7.7) 06/10/22 14:51 Lymph # (Auto) 2.2 x10E3/uL (1.00-4.8) 06/10/22 14:51 Lyman # (Auto) 0.4 x10E3/uL (0.0-0.8) 06/10/22 14:51 [...] pH 5.5 (5.0-9.0) 06/10/22 15:40 Ur Specific [place] 1.010 (1.001-1.030) 06/10/22 15:40 Urine Protein Negative [...] code Documented By: Farhad Gallego MD 06/10/22 5925 Signed By: <Electronically signed by Farhad Gallego MD> 06/10/22 4285 [facility] Work Phone: 1([phone]) 531-746101-04-2023 Evaluation note* Encounter Date Diagnosis Assessment Notes [...] for bleeding. Keep appointment with Dr. Elder. 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 [facility] Other 11-30-2022 Evaluation note* Encounter Date Diagnosis Assessment Notes Treatment Notes Treatment Clinical Notes Feb, Gastroesophageal ref lux disease without esophagitis (ICD-10 - K21.9) [facility] Other 10-24-2022 Evaluation note* Encounter Date Diagnosis [...] to trial the ointment. Follow-up as needed. [facility] Other 05-11-2022 NoteEchocardiology Procedure Exam Date/Time Accession # Ordering Echo Transthoracic 08/25/2021 15:36 EDT [id number] Jay DAVEY, Samir Rivera CPT code 54273 Reason for Exam (Echo Transthoracic Complete) Bradycardia;Other [...] Mariam Salazar MD Transcribed by: kerry Technologist: [facility]04-21-2022 Note Echocardiology Procedure Exam Date/Time Accession # Ordering ECG Stress Exercise 08/06/2021 10:22 EDT [id number] Jay DAVEY, Samir Rivera CPT code 52666 Reason for Exam (ECG Stress Exercise) bradycardia;Other [...] Mariam Salazar MD Transcribed by: marixa Technologist: [facility]03-31-2022 Evaluation note* Encounter Date Diagnosis Assessment [...] school on two different occasions.Order faxed to [employer]. Jun,Gastroesophageal reflux disease without esophagitis (ICD-10 - [...] a [employer]. Jun,Former smoker (ICD-10 - Z87.891) Located [facility] Other Evaluation + Plan note Future Appointments Appointment Date:08/06/2021 09:30:00 AM [facility]uled [facility] Type:CV Stress (FT) Appointment Date:08/06/2021 11:00:00 AM Scheduled Provider: [facility] Type:CV Holter/Event (FT) Future Scheduled Tests Radiology* Echo Transthoracic Complete 07/24/21 * [facility] Appointment Date:08/11/2021 10:30:00 AM Scheduled Provider:Samir Thompson MD Location[facility] Appointment Type[facility] ([facility] Future App[facility]ments Appointment Date:09/01/2021 02:30:00 PM Scheduled Provider:Samir Thompson MD Location[facility] App[facility]ment Type[facility] ([facility] Future App[facility]ments Appointment Date:2022 11:15:00 AM Scheduled Provider:Smair Thompson MD [facility] App[facility] Type:[facility]iology [facility] (FT[facility] noteNo InformationN[facility] Other Evaluation noteNo assessment information available [facility] Work Phone: Evaluation note* Diagnosis Onset Date Resolution Status Anemia acuteAnxiety and depressionacuteBipolar disorderacuteIron deficiency anemiaacute [facility] Work Phone: evaluation note* Diagnosis Onset Date Resolution Status Abdominal pain acuteChillsacuteConstipationacuteFeveracuteH/O gastric sleeveacuteVomitingacute [facility] Work Phone: Evaluation note* Diagnosis Onset Date Resolution Status [id number] acuteLaxity of ligamentacuteMultidirectional instability of glenohumeral joint acuteNumbness of right handacuteOther instability, right shoulderacute [facility] Work Phone: Evaluation note* Diagnosis Onset Date Resolution Status [id number] acuteLaxity of ligamentacuteMultidirectional instability of glenohumeral joint acuteNumbness of right handacuteOther instability, right shoulderacute GGC-QDJJ-[id number] of ligamentacuteMultidirectional instability of glenohumeral jointacuteNumbness of right handacuteOther instability, right shoulderacuteRight carpal tunnel syndromeacute [facility] Work Phone: Evaluation note* Diagnosis Onset Date Resolution Status [id number] acuteLaxity of ligamentacuteMultidirectional instability of glenohumeral joint acuteNumbness of right handacuteOther instability, right shoulderacute HGV-XSAF-[id number] of ligamentacuteMultidirectional instability of glenohumeral jointacuteNumbness of right handacuteOther instability, right shoulderacuteRight carpal tunnel yxuofnkywczrnMDT-KQPK-[id number] of ligamentacuteMultidirectional instability of glenohumeral jointacuteOther instability, right shoulderacuteRight carpal tunnel syndromeacute [facility] Work Phone: Evaluation note* Diagnosis Onset Date Resolution Status [id number] acuteLaxity of ligamentacuteMultidirectional instability of glenohumeral joint acuteNumbness of right handacuteOther instability, right shoulderacute LUW-RSYD-[id number] of ligamentacuteMultidirectional instability of glenohumeral jointacuteNumbness of right handacuteOther instability, right shoulderacuteRight carpal tunnel kvttpmwqqumxtWJZ-JDQZ-[id number] of ligamentacuteMultidirectional instability of glenohumeral jointacuteOther instability, right shoulderacuteRight carpal tunnel syndromeacute VWE-BBHJ-[id number] of ligamentacuteMultidirectional instability of glenohumeral jointacuteOther instability, right shoulderacuteRight carpal tunnel syndromeacuteStatus post arthroscopy of right shoulderacute [facility] Work Phone: Evaluation note* Diagnosis Onset Date Resolution Status [id number] acuteLaxity of ligamentacuteMultidirectional instability of glenohumeral joint acuteNumbness of right handacuteOther instability, right shoulderacuteRight carpal tunnel jmuzjowyixegtZDO-HRYJ-[id number] of ligamentacute Multidirectional instability of glenohumeral jointacuteOther instability, right shoulderacuteRight carpal tunnel gmjtzystcrevzNZQ-KWPC-[id number] of ligamentacuteMultidirectional instability of glenohumeral jointacuteOther instability, right shoulderacuteRight carpal tunnel syndromeacuteStatus post arthroscopy of right shoulderacuteStatus post surgerynoneactive JBK-NDJK-[id number] of ligamentacuteMultidirectional instability of glenohumeral jointacuteOther instability, right shoulderacuteRight carpal tunnel syndromeacuteStatus post arthroscopy of right shoulderacuteStatus post surgery noneactive [facility] Work Phone: Evaluation note* Diagnosis Well woman exam with routine gynecological exam Routine gynecological examination documented in this encounter 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 Special screening examination for infectious diseases Screening examination for unspecified infectious disease Encounter for other genetic testing of female for procreative management [facility]* Diagnosis Bipolar 1 disorder (Multi)- Primary Infertility counseling documented in this encounter [facility] Work Phone: Evaluation note* Diagnosis Treatment plan provided- Primary [facility]* Diagnosis Reproductive mgmt, 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 [facility]* Diagnosis Procreative management- Primary Unspecified procreative management [facility]* Diagnosis Female infertility- Primary Female infertility of unspecified origin [facility] Fertility testing- Primary Female infertility Female infertility of unspecified origin [facility]* Diagnosis Encounter for fertility planning [Z31.89]- Primary Other specified procreative management documented [facility] this [facility]* Diagnosis Encounter for artificial insemination- Primary Artificial insemination documented in this [facility]* Diagnosis 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)- Primary [facility]* Diagnosis 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)- Primary [facility]* Diagnosis Abnormal thyroid function test- Primary Nonspecific abnormal results of thyroid function study 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 Vitamin D deficiency documented in this encounter [facility]* Diagnosis 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) documented [facility] this encounter [facility]* Diagnosis Early stage of (HCC) state, incidental documented in this encounter [facility]* Diagnosis Amenorrhea Absence of menstruation 9 weeks gestation of Missed menses , unspecified gestational age Encounter for supervision of normal first in first trimester documented in this encounter [facility] HealthcareEvaluation note* Diagnosis 13 weeks gestation of ([facility]) Second trimester ([facility]) state, incidental Thyroid disease Unspecified disorder of thyroid H/O gastric sleeve H/O iron deficiency anemia resulting from in vitro fertilization in first trimester ([facility]) documented in this encounter [facility] HealthcareEvaluation note* Diagnosis Well woman exam with routine gynecological exam Routine gynecological examination Exposure to STD Second trimester ([facility]) state, incidental 18 weeks gestation of ([facility]) Need for maternal serum alpha-protein (MSAFP) screening ([facility]) Screening, , for anatomic survey ([facility]) Encounter for anatomic survey Thyroid disease Unspecified disorder of thyroid documented in this encounter [facility] HealthcareEvaluation note* Diagnosis Previous gastric bypass affecting , antepartum- Primary Hypothyroidism affecting in second trimester 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 ([facility]) Obesity affecting in second trimester, [...] in second trimester [facility] this [facility]* Diagnosis 22 weeks gestation of ([facility]HS-HCC) Second trimester (HHS-HCC) state, incidental Thyroid disease Unspecified disorder of thyroid H/O gastric sleeve H/O iron deficiency anemia Diabetes mellitus screening Screening for diabetes mellitus documented in this encounter [facility]* Diagnosis Previous gastric bypass affecting , antepartum- Primary Hypothyroidism affecting in second trimester 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 (CMS-HCC) Obesity affecting in second trimester, unspecified obesity type documented in this encounter [facility]* Diagnosis 26 weeks gestation of (HHS-HCC) Second trimester (HHS-HCC) state, incidental TSH (thyroid-stimulating hormone deficiency) Other specified acquired hypothyroidism documented in this encounter [facility] HealthcareEvaluation note* Diagnosis Third trimester (HHS-HCC) state, incidental 29 weeks gestation of (HHS-HCC) documented in this encounter [facility] HealthcareEvaluation note* Diagnosis Hypothyroidism affecting in second trimester- Primary headache in second trimester Previous gastric bypass affecting , antepartum 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 (CMS-HCC) [facility]* Diagnosis Third trimester (HHS-HCC) state, incidental 31 weeks gestation of ([facility]) TSH (thyroid-stimulating hormone deficiency) Other specified acquired hypothyroidism H/O gastric sleeve documented in this encounter [facility] Healthcare[facility] general Narrative - Reported* Type Description Date Surgical History cholecystectomy 2014 Surgical History gastric sleeve 2020 [facility] Other History general Narrative - Reported* Type Description Date Medical History Hypothyroidism Medical HistoryMNGMedical HistoryenuresisMedical Historyextreme obesityMedical HistoryGERD with esophagitisMedical HistoryheadacheMedical HistoryGoiter, nontoxic, multinodularMedical HistoryVitamin D deficiencySurgical History tceixrkgksqbcjm3081Zymacsyt Pcjqgypfhzkiwldjoruyzw8754Xkkhbeyb Historygastric svamkl4050Lylovsjgmkudscf HistoryAnemia05/2022 [facility] Other Hospital course Narrative No data available for this section [facility] Discharge instructions No data available for this section [facility] Discharge instructions Additional Instructions POSTOPERATIVE INSTRUCTIONS FOR SHOULDER LABRAL REPAIR Romeo Santana DO Orthopedic Surgeon [facility] GENERAL INSTRUCTIONS: Use ice packs to [...] immediately. Romeo Santana DO Orthopedic Surgeon [facility] Office: [address] [place], [place] [address] Office number: [phone] [facility] Work Phone: Hospital Discharge instructionsAmbulatory Orders* Referral to Allergy/Immunology Time Frame: 04/26/24, Location: None Selected [facility] Work Phone: Hospital Discharge instructions Additional Instructions We evaluated you for your vaginal bleeding in . Your ultrasound was normal, the baby has a good heart rate, measuring at 13 weeks and 1 day. Your cervix was closed. Follow-up closely with your BANANA CARRIER. Return to the emergency department if you develop any worsening or concerning symptoms.[facility] Work Phone: InstructionsNot on filedocumented in this encounter [facility] SystemInstructionsNot on filedocumented in this encounter [facility] SystemInstructions* Attachments The following attachments cannot be sent through Care Everywhere. * Preeclampsia ([place]) documented in this [email or web address] SystemInstructionsNot on file documented in this encounterProMediwi [facility] SystemInstructionsNot on file documented in this encounterProSelect Medical [facility] OhioBioscanR, INC SystemReason for referral (narrative)No reason for referral information availableJoint [facility] Work Phone: Reason for visit Narrative* Consult, Test, Treat (Routine) - ClosedSpecialtyDiagnoses / ProceduresReferred By ContactReferred To ContactREPRODUCTIVE ENDOCRINOLOGY & FERTILITY Diagnoses Encounter for procreative management, unspecified Encounter for other procreative management Procedures ARTIFIC INSEMINATION INTRAUTERIN THAWING CRYOPRESERVED SPERM/SEMEN EACH ALIQUOT Daniel Hanna APRN.HIGH DENSITY PRESS LABORER [address] [place] [address] Phone: tel: fax: Reproductive Endocrinology Infertility [address] [place] [address] Phone: tel: Referral IDStatusReasonStart DateExpiration DateVisits RequestedVisits [id number] Financial Clearance Required - Self Pay Patient Cleared - True Self-Pay required payment collected Do Not Bill Insurance - [facility] Narrative* Diagnostic Procedure Only (Routine) - AuthorizedSpecialtyDiagnoses / ProceduresReferred By ContactReferred To ContactASCENSION [facility] Diagnoses Fertility testing Procedures PELVIC US WHI US PELVIC NONOBSTETRIC REAL-TIME IMAGE COMPLETE Ignacio Guy MD [address] [place] [address] Phone: tel: fax: [facility] [address] [place] [address] Referral IDStatusReasonStart DateExpiration DateVisits RequestedVisits [id number] Auto-Generated Referral Patient Cleared - True Self-Pay required payment collected Do Not Bill Insurance - SP patient / [facility] for visit Narrative* Consult, Test, Treat (Routine) - ClosedSpecialtyDiagnoses / ProceduresReferred By ContactReferred To Contact REPRODUCTIVE ENDOCRINOLOGY & FERTILITY Diagnoses Encounter for procreative management, unspecified Encounter for other procreative management Procedures THAWING CRYOPRESERVED SPERM/SEMEN EACH ALIQUOT ARTIFIC INSEMINATION INTRAUTERIN Daniel Hanna APRN.HIGH DENSITY PRESS LABORER [address] [place] [address] Phone: tel: fax: [facility] [address] [place] [address] Phone: tel: Referral IDStatusReasonStart DateExpiration DateVisits RequestedVisits [id number] Patient Cleared - True Self-Pay required payment collected Do Not Bill Insurance - SP patient / [facility] for visit Narrative* Financial Clearance (Routine) - ClosedSpecialtyDiagnoses / ProceduresReferred By ContactReferred To Contact FINANCE Diagnoses Collect for IUI-D washed sample Procedures THAWING CRYOPRESERVED SPERM/SEMEN EACH ALIQUOT ARTIFIC INSEMINATION INTRAUTERIN FINANCIAL CLEARANCE PHONE CALL Self Financial Clearance Phone Screening [place] [address] Referral IDStatusReasonStart DateExpiration DateVisits RequestedVisits [id number] Financial Clearance Required - Self Pay Patient Cleared - True Self-Pay required payment collected Do Not Bill Insurance - SP patient / [facility] for visit Narrative* Diagnostic Procedure Only (Routine) - ClosedSpecialtyDiagnoses / ProceduresReferred By ContactReferred To Contact [facility] Diagnoses 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) Procedures OBSTETRIC ULTRASOUND WHI US PREG UTERUS AFTER 1ST TRIMEST GESTATION Melodie Hernandez APRN.HIGH DENSITY PRESS LABORER [address] [place] [address] Phone: tel: fax: [place] [address] Referral IDStatusReasonStart DateExpiration DateVisits RequestedVisits [id number] Auto-Generated Referral / [facility] for visit Narrative* Diagnostic Procedure Only (Routine) - ClosedSpecialtyDiagnoses / ProceduresReferred By ContactReferred To Contact [facility] Diagnoses Early stage of (HCC) Procedures OBSTETRIC ULTRASOUND WHI US PREG UTERUS AFTER 1ST TRIMEST GESTATION Melodie Hernandez APRN.HIGH DENSITY PRESS LABORER [address] [place] [address] Phone: tel: fax: [place] [address] Referral IDStatusReasonStart DateExpiration DateVisits RequestedVisits [id number] Auto-Generated Referral / [facility] Advance Directives TypeDate RecordedPatient RepresentativeExplanationACP-Advance DirectiveACP-Power [...] drive you home after your procedure. Your locomotive driver must be 18 years of age [...] questions, call the Pre-Admission Testing Unit at [phone]. Day of Surgery/Procedure As a patient at [facility] you can expect quality medical and nursing care that is centered on your individual needs. Our goal is to make your surgical experience as comfortableas possible . Directions to the Surgery Center [facility] is located at [address] [place] [address]. Please pull into the Emergency parking lot and stop at the glass vial bending conveyor feeder dotson. We offer free glass vial bending conveyor feeder service for all our surgery patients, if you choose not to have glass vial bending conveyor feeder parking we have additional parking across the street.You will enter the facility following the [facility] sign. Please stop at the office assistant receptionist desk where you will be checked in by the staff. If you have any questions please call [phone]. Transportation after your procedure. You will need a friend or family member to drive you home after your procedure. Your locomotive driver must be18 years of age or [...] may shave your face or neck. ? [place] your teeth but do not swallow water. [...] or the day of surgery, please call [phone], or [phone] documented in this encounter* Instructions* Mukesh Montez, [...] 48 hours call the anesthesia department at [phone]. Will you need pain medication? The nerve [...] block please phone the Anesthesiology Department at [phone]. If the phone does not get answered please contact the hospital water pump operator at [phone] to page the director religious education anesthesiologist Discharge Instructions for Bariatric Surgery You had a Laparoscopic Sleeve Gastrectomy (51738) surgery to treat obesity. Recovery from this [...] scheduled appointment, please call the office at [phone]. Call Your Doctor If Any of the [...] AM EST CLINICAL PHARMACY NOTE: MEDS TO [facility] Patient?: No Total # of Prescriptions Filled: 3 The following medications were delivered to the patient: Oxycodone-acetaminophen 5/325 mg tab Cyclobenzaprine 10 mg tab Enoxaparin 60mg /0.6 ml syr Total # of Interventions Completed: 1 Time Spent (min): 60 Additional Documentation:called senior case manager about the high co-pay on [...] SHOULDER DI SCUSS SURGERY Reason for Visit [id number] Laxity of ligament Multidirectional instability of glenohumeral joint Numbness of right hand Other instability, right shoulder Chief Complaint OP SP RT SHOULDER DI SCUSS SURGERY R20.0Reason for [id number]-[id number] Laxity of ligament Multidirectional instability of glenohumeral joint Numbness of right hand Other instability, right shoulder Chief Complaint OP SP RT SHOULDER DI SCUSS SURGERY R20.0 EMG RESULTSReason for [id number] Laxity of ligament Multidirectional instability of glenohumeral joint Numbness of right hand Other instability, right shoulder [id number] Laxity of ligament Multidirectional instability of glenohumeral joint Numbness of right hand Other instability, right shoulder Right carpal tunnel syndrome Chief Complaint OP SP RT SHOULDER DI SCUSS SURGERY R20.0 EMG RESULTS Shoulder painReason for [id number]-[id number] Laxity of ligament Multidirectional instability of glenohumeral joint Numbness of right hand Other instability, right shoulder [id number] Laxity of ligament Multidirectional instability of glenohumeral joint Numbness of right hand Other instability, right shoulder Right carpal tunnel syndrome Chief Complaint OP SP RT SHOULDER DI SCUSS SURGERY R20.0 EMG RESULTS Shoulder pain H & P RIGHT SHOULDER ARTHROSCOPY [id number] for [id number] Laxity of ligament Multidirectional instability of glenohumeral joint Numbness of right hand Other instability, right shoulder [id number] Laxity of ligament Multidirectional instability of glenohumeral joint Numbness of right hand Other instability, right shoulder Right carpal tunnel syndrome [id number] Laxity of ligament Multidirectional instability of glenohumeral joint Other instability, right shoulder Right carpal tunnel syndrome Chief Complaint OP SP RT SHOULDER DI SCUSS SURGERY R20.0 EMG RESULTS Shoulder pain H & P RIGHT SHOULDER ARTHROSCOPY 12-07-23 Shoulder pain Shoulder painReason for PxwfqJUP-[id number] Laxity of ligament Multidirectional instability of glenohumeral joint Numbness of right hand Other instability, right shoulder [id number] Laxity of ligament Multidirectional instability of glenohumeral joint Numbness of right hand Other instability, right shoulder Right carpal tunnel syndrome [id number] Laxity of ligament Multidirectional instability of glenohumeral joint Other instability, right shoulder Right carpal tunnel syndrome Chief Complaint OP SP RT SHOULDER DI SCUSS SURGERY R20.0 EMG RESULTS Shoulder pain H & P RIGHT SHOULDER ARTHROSCOPY 12-07-23 Shoulder pain Shoulder pain 10-14 DAYS POST OPReason for OyrtwNNF-[id number] Laxity of ligament Multidirectional instability of glenohumeral joint Numbness of right hand Other instability, right shoulder [id number] Laxity of ligament Multidirectional instability of glenohumeral joint Numbness of right hand Other instability, right shoulder Right carpal tunnel syndrome [id number] Laxity of ligament Multidirectional instability of glenohumeral joint Other instability, right shoulder Right carpal tunnel syndrome [id number] Laxity of ligament Multidirectional instability of glenohumeral joint Other instability, right shoulder Right carpal tunnel syndrome Status post arthroscopy of right shoulder Chief Complaint R20.0 EMG RESULTS Shoulder pain H & P RIGHT SHOULDER ARTHROSCOPY 12-07-23 Shoulder pain Shoulder pain 10-14 DAYS POST OP R20.0 4 WEEKSReason for [id number] Laxity of ligament Multidirectional instability of glenohumeral joint Numbness of right hand Other instability, right shoulder Right carpal tunnel syndrome [id number] Laxity of ligament Multidirectional instability of glenohumeral joint Other instability, right shoulder Right carpal tunnel syndrome [id number] Laxity of ligament Multidirectional instability of glenohumeral joint Other instability, right shoulder Right carpal tunnel syndrome Status post arthroscopy of right shoulder Status post surgery [id number] Laxity of ligament Multidirectional instability of glenohumeral [...] for Visit Admit Date Degenerative superior labral ybmqaeyh-nz-nncbzpijy (SLAP) tear of right matthias December 20, 2023 10:11am Laxity of ligament December 20, 2023 10:11am Multidirectional instability of glenohum eral joint December 20, 2023 10:11am Other instability, right shoulder Septem 2023 10:11am Right carpal tunnel syndrome December 192023 10:11am Status post arthroscopy of right shoulde r December 20, 2023 10:11am Status post surgery December 20, 2023 10:11am Degenerative superior labral hacohxym-jm-pbbvkrgxw (SLAP) tear of right matthias January 17, 2024 11:58am Laxity of ligament January 17, 2024 11 :58am Multidirectional instability of glenohum eral joint January 17, 2024 11:58am Other instability, right shoulder Octobe 2023 11:58am Right carpal tunnel syndrome January 11:58am Status post arthroscopy of right shoulde r January 17, 2024 11:58am Status post surgery January 17, 2024 11 :58am Degenerative superior labral eqiugvio-mt-ajtybsyzi (SLAP) tear of right matthias February 27, [...] for Visit Admit Date 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 of right matthias February 27, 2024 2:25pm Laxity of ligament February 27, 2024 2:25pm Multidirectional instability of glenohum eral joint February 27, 2024 2:25pm Other instability, right shoulder Novemb er 2023 2:25pm Right carpal tunnel syndrome February 262023 2:25pm Status post arthroscopy of right shoulde r February 27, 2024 2:25pm Status post surgery February 27, 2024 2:25pm Degenerative superior labral bmskuyup-ka-ckjralxux (SLAP) tear of right matthias April 23, [...] for Visit Admit Date Degenerative superior labral geinqkvh-ir-dibkzmugd (SLAP) tear of right matthias February 27, 2024 2:25pm Laxity of ligament February 27, 2024 2:25pm Multidirectional instability of glenohum eral joint February 27, 2024 2:25pm Other instability, right shoulder Novemb er 2023 2:25pm Right carpal tunnel syndrome February 262023 2:25pm Status post arthroscopy of right shoulde r February 27, 2024 2:25pm Status post surgery February 27, 2024 2:25pm Degenerative superior labral nlytnvxe-lh-fgbwnvkua (SLAP) tear of right matthias April 23, [...] and steroid injection, [place] [facility] 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) Referral Organization [facility] Family Medicin e [place] Referring Provider First Name Amanda Referring Provider Last Name Logan Referring Provider Specialty Nurse Pract itioner Referred Organization [employer] Referred Provider Darleen Sinclair Referred Address [address] [facility] [facility] [address],[place], [place],[address] Referred Provider Specialty Endocrinolog y Referral Priority Routine General Notes Fore, Chelsi M 023 11:26:34 AM >Received today and waiting for office notes to be locked before sending referral Additional Source Comments Reason for Visit (unrecogniz ed section and content) StatusReasonSpecialtyDiagnoses / ProceduresReferred By ContactReferred To Contact Diagnoses Morbid obesity (HCC) MORBID OBESITY, HYPOTHYROID Procedures OK LAP GASTRIC BYPASS/BEN-EN-Y XI LAPAROSCOPIC ROBOTIC GASTRIC BYPASS BEN-EN-Y, LIVER BIOPSY, EGD- GI UNIT SCHEDULED. Rashard Olivera, [address] [facility] [address] [place] [address] [facility] ReasonCommentsGynecologic ExamReasonCommentsInfertilitySpecialtyDiagnoses / ProceduresReferred By ContactReferred To ContactREPRODUCTIVE ENDOCRINOLOGY & FERTILITY Diagnoses Female infertility, unspecified Procedures VV OFFICE/OP CONSLTJ NEW/EST PT MOD MDM 40 MINUTES Pcp, Ana Rosa, FIBERGLASS TECHNICIAN [facility] [address] [address] [place] [address] Referral IDStatusReasonStart DateExpiration DateVisits RequestedVisits [id number] Financial Clearance Required - Self Pay Patient Cleared - True Self-Pay required payment collected Do Not Bill Insurance - SP patient Financial Clearance Not Required [id number] sperm teachSpecialtyDiagnoses / ProceduresReferred By ContactReferred To ContactREPRODUCTIVE ENDOCRINOLOGY & FERTILITY Diagnoses Infertility counseling Procedures OFFICE/OUTPATIENT ESTABLISHED MOD MDM 30 MIN Melodie Hernandez, MELY.[facility] [address] [facility] [address] [place] [id number] [facility] [place] [address] [place] [address] Referral IDStatusReasonStart DateExpiration DateVisits RequestedVisits [id number] Financial Clearance Required - Self Pay Patient Cleared - True Self-Pay required payment collected Do Not Bill Insurance - SP patient /[id number] / ProceduresReferred By ContactReferred To ContactREPRODUCTIVE ENDOCRINOLOGY & FERTILITY Diagnoses Encounter for fertility testing Procedures OFFICE/OUTPATIENT ESTABLISHED LOW MDM 20 MIN [facility] [place] [address] [place] [address] [facility] [address] [place] [address] Referral IDStatusReasonStart DateExpiration DateVisits RequestedVisits [id number] Financial Clearance Required - Self Pay Patient Cleared - True Self-Pay required payment collected Do Not Bill Insurance - SP patient [id number] PlanningReasonCommentsre iui this wknd/has cervical polyp questionReasonCommentsPatient [...] section and content) DATE CREATED AUTHOR 05/08/2020 [facility] DATE CREATED AUTHOR 'S ORGANIZ ATION 03/31/2021 [facility] DATE CREATED AUTHOR AUTHOR'S ORGANIZ ATION 09/04/2021 [facility] DATE CREATED AUTHOR AUTHOR'S ORGANIZ ATION 04/19/2024 [facility] DATE CREATED AUTHOR AUTHOR'S ORGANIZ ATION 05/05/2024 [facility] DATE CREATED AUTHOR AUTHOR'S ORGANIZ ATION 09/12/2024 [facility] DATE CREATED AUTHOR AUTHOR'S ORGANIZ ATION 10/05/2024 [facility] DATE CREATED AUTHOR AUTHOR'S ORGANIZ ATION 12/07/2024 [facility] DATE CREATED AUTHOR AUTHOR'S ORGANIZ ATION 12/07/2024 [facility] DATE CREATED AUTHOR AUTHOR'S ORGANIZ ATION 02/08/2025 [facility] DATE CREATED AUTHOR AUTHOR'S ORGANIZ ATION 02/21/2025 [facility] EPIC Care Teams (unrecognized sec tion and content) Team Status: Inactive Member Role Status Dates Mariam Appiah MD Primary Care Provider Active Amanda Ford APRN RESPIRATORY CARE PROGRAM DIRECTOR-CAttenrocky ProviderActive Team Status: Inactive Member Role Status Dates Amanda Ford APRN RESPIRATORY CARE PROGRAM DIRECTOR-C Primary Care Provider Active Dariel Howell ProviderActive Team Status: Inactive Member Role Status Dates Amanda Ford APRN RESPIRATORY CARE PROGRAM DIRECTOR-C Primary Care Provider Active Michelle Zhang ProviderActive Team Status: Active Member Role Status Dates Amanda Ford APRN RESPIRATORY CARE PROGRAM DIRECTOR-C Primary Care Provider Active Team Status: Inactive Member Role Status Dates Amanda Ford APRN RESPIRATORY CARE PROGRAM DIRECTOR-C Primary Care Provider, Attending Provider Active Team Status: Active Member Role Status Dates Amanda Ford APRN RESPIRATORY CARE PROGRAM DIRECTOR-C Primary Care Provider Active Dariel Howell ProviderActiveFarhad Gallego , MDAdmit Provider, Attending ProviderActive Team Status: Inactive Member Role Status Dates Amanda Ford APRN RESPIRATORY CARE PROGRAM DIRECTOR-C Primary Care Provider Active Dariel Howell ProviderActiveAnoDasilvaLashonda , MDAdmit Provider, Attending ProviderActive Team Status: Inactive Member Role Status Dates Amanda Ford APRN RESPIRATORY CARE PROGRAM DIRECTOR-C Primary Care Provider Active Silva Greco ProviderActive Team Status: Inactive Member Role Status Dates Provider Conversion Attending Provider Active St art: May 17, 2023 End: May 17, 2023 Team Status: Inactive Member Role Status Dates Amanda Ford APRN RESPIRATORY CARE PROGRAM DIRECTOR-C Primary Care Provider, Attending Provider Active Start: June 08, 2023 End: June 08, 2023 Team Status: Active Member Role Status Dates Amanda Ford APRN RESPIRATORY CARE PROGRAM DIRECTOR-C Primary Care Provider, Attending Provider Active Start: September 15, 2023 Team Status: Inactive Member Role Status Dates Amanda Ford APRN RESPIRATORY CARE PROGRAM DIRECTOR-C Primary Care Provider Active Start: October 13, 2023 End: October 13, 2023Romeo Santana DOAttending ProviderActiveStart: October 13, 2023 End: October 13, 2023 Team Status: Inactive Member Role Status Dates Amanda Ford APRN RESPIRATORY CARE PROGRAM DIRECTOR-C Primary Care Provider Active Start: October 26, 2023 End: October 26, 2023Romeo Santana DOAttending ProviderActiveStart: October 26, 2023 End: October 26, 2023 Team Status: Inactive Member Role Status Dates Amanda Ford APRN RESPIRATORY CARE PROGRAM DIRECTOR-C Primary Care Provider Active Start: November 01, 2023 End: November 01, 2023Romeo Santana DOAttending ProviderActiveStart: November 01, 2023 End: November 01, 2023 Team Status: Inactive Member Role Status Dates Amanda Ford APRN RESPIRATORY CARE PROGRAM DIRECTOR-C Primary Care Provider Active Start: November 28, 2023 End: November 28, 2023Romeo Santana DOAttending ProviderActiveStart: November 28, 2023 End: November 28, 2023 Team Status: Inactive Member Role Status Dates Amanda Ford APRN RESPIRATORY CARE PROGRAM DIRECTOR-C Primary Care Provider Active Start: December 01, 2023 End: December 01, 2023Romeo Santana DOAttending ProviderActiveStart: December 01, 2023 End: December 01, 2023 Team Status: Inactive Member Role Status Dates Amanda Ford APRN RESPIRATORY CARE PROGRAM DIRECTOR-C Primary Care Provider Active Start: December 07, 2023 End: December 07, 2023Romeo Santana DOAttending ProviderActiveStart: December 07, 2023 End: December 07, 2023 Team Status: Active Member Role Status Dates Amanda Ford APRN RESPIRATORY CARE PROGRAM DIRECTOR-C Primary Care Provider Active Start: December 07, 2023 Romeo Santana DOAttending Provider, Other ProviderActiveStart: December 07, 2023 Team Status: Inactive Member Role Status Dates Amanda Ford APRN RESPIRATORY CARE PROGRAM DIRECTOR-C Primary Care Provider Active Start: December 192023 End: December 20, 2023Romeo Santana DOAttending ProviderActiveStart: December 20, 2023 End: December 20, 2023 Team Status: Active Member Role Status Dates Amanda Ford APRN RESPIRATORY CARE PROGRAM DIRECTOR-C Primary Care Provider Active Start: December 182023 Romeo Santana , DOOther ProviderActiveStart: January 10, 2024 Daniel Hampton MDAttending ProviderActiveStart: January 10, 2024 Team Status: Inactive Member Role Status Dates Amanda Ford APRN RESPIRATORY CARE PROGRAM DIRECTOR-C Primary Care Provider Active Start: January 17, 2024 End: January 17, 2024Romeo Santana DOAttending ProviderActiveStart: January 17, 2024 End: January 17, 2024Team MemberRelationshipSpecialtyStart DateEnd Date Amanda Ford NP [address] [place] [address] [facility]01/17/23Team MemberRelationshipSpecialtyStart DateEnd Date Amanda Ford NP [address] [place] [address] [facility]01/17/23 Team Status: Inactive Member Role Status Dates Amanda Ford APRN RESPIRATORY CARE PROGRAM DIRECTOR-C Primary Care Provider Active Start: February 262023 End: February 27, 2024Romeo Santana DOAttending ProviderActiveStart: February 27, 2024 End: February 27, 2024Team MemberRelationshipSpecialtyStart DateEnd Date Amanda Ford NP PCP - [facility]01/17/23 Team Status: Active Member Role Status Dates Amanda Ford APRN RESPIRATORY CARE PROGRAM DIRECTOR-C Primary Care Provider Active Start: February Kenny Gallegos ProviderActiveStart: February 20, 2024 Team Status: Inactive Member Role Status Dates Amanda Ford APRN RESPIRATORY CARE PROGRAM DIRECTOR-C Primary Care Provider Active Start: April 23, 2024 End: April 23, 2024Kenny Gary ProviderActiveStart: April 23, 2024 End: April 23, 2024 Team Status: Inactive Member Role Status Dates Amanda Ford APRN RESPIRATORY CARE PROGRAM DIRECTOR-C Primary Care Provider, Attending Provider Active Start: April 26, 2024 End: April 26, 2024Team MemberRelationshipSpecialtyStart DateEnd Date Amanda Ford NP [address] [place] [address] [facility] Bhpwhvqh31/2/23Team MemberRelationshipSpecialtyStart DateEnd Date Amanda Ford NP [address] [place] [address] [facility] - [facility] Apdznfcp35/2/23Team MemberRelationshipSpecialtyStart DateEnd Date Amanda Ford NP [address] [place] [address] [facility] - [facility] Dgqmyeiw09/2/23Team MemberRelationshipSpecialtyStart DateEnd Date Amanda Ford NP [address] [place] [address] [facility] - [facility] Xojjgyjd49/2/23 Team Status: Inactive Member Role Status Dates Amanda Ford APRN RESPIRATORY CARE PROGRAM DIRECTOR-C Primary Care Provider Active Start: October 18, 2024 End: October 18lexjerri Arriaza , DOEmergency ProviderActiveStart: October 18, 2024 End: October 18, 2024Team MemberRelationshipSpecialtyStart DateEnd Date Amanda Ford NP [address] [place] [address] PCP - GeneralFamily Huexajoa79/2/23Team MemberRelationshipSpecialtyStart DateEnd Date No Pcp, [place] [address] PCP - GeneralFamily Medicine05/20/20Team MemberRelationshipSpecialtyStart DateEnd Date No Pcp, [place] [address] PCP - GeneralFamily Medicine05/20/20Team MemberRelationshipSpecialtyStart DateEnd Date Amanda Ford NP [address] [place] [address] PCP - GeneralFamily Dcjnnfej68/2/23Team MemberRelationshipSpecialtyStart DateEnd Date Amanda Ford NP 07 [place] [id number] PCP - GeneralFamily Dbyiegbi12/2/23Team MemberRelationshipSpecialtyStart DateEnd Date Amanda Ford NP [address] [place] [id number] PCP - GeneralFamily Ghccwvgd99/2/23 Team Status: Active Member Role Status Dates Amanda Ford APRN RESPIRATORY CARE PROGRAM DIRECTOR-C Primary Care Provider Active Start: November 17, 2024 Chris Dickerson , DOAttending ProviderActiveStart: November 17, 2024 Team Status: Active Member Role Status Dates Amanda Ford APRN RESPIRATORY CARE PROGRAM DIRECTOR-C Primary Care Provider Active Start: November 20, 2024 Les Juan , DOAttending ProviderActiveStart: November 20, 2024 Team Status: Active Member Role Status Dates Amanda Ford APRN RESPIRATORY CARE PROGRAM DIRECTOR-C Primary Care Provider Active Start: November 30, [...] Member Role Status Dates Amanda Ford APRN RESPIRATORY CARE PROGRAM DIRECTOR-C Primary Care Provider Active Start: December 02, 2024 End: December 03, 2024Eduardo Cruz , DOAttending ProviderActiveStart: December 02, 2024 End: December 03, 2024Team MemberRelationshipSpecialtyStart DateEnd Date No Pcp, [place] [address] PCP - GeneralFamily Medicine05/20/20Team MemberRelationshipSpecialtyStart DateEnd Date No Pcp, [place] [address] PCP - GeneralFamily Medicine05/20/20Team MemberRelationshipSpecialtyStart DateEnd Date Amanda Ford NP [address] [place] [id number] PCP - GeneralFamily Kzkppkvo40/2/23Team MemberRelationshipSpecialtyStart DateEnd Date No Pcp, [place] [address] PCP - GeneralFamily Medicine05/20/20Team MemberRelationshipSpecialtyStart DateEnd Date No Pcp, [place] [address] PCP - GeneralFamily Medicine05/20/20Team MemberRelationshipSpecialtyStart DateEnd Date Amanda Ford NP [address] [place] [id number] PCP - GeneralFamily Cihroyxl75/2/23Team MemberRelationshipSpecialtyStart DateEnd Date Amanda Ford NP [address] [place] [address] PCP - GeneralFamily Gfzjyheo90/2/23Team MemberRelationshipSpecialtyStart DateEnd Date Amanda Ford NP [address] [place] [address] PCP - Generalmily Mslkqurv07/2/23Team MemberRelationshipSpecialtyStart DateEnd Date MerylsarahAmanda de la fuente NP [address] [place] [address] PCP - GeneralFamily Onzkrwku79/2/23 Goals (unrecognized section and content) Type Treatment [...] or prosecute any alcohol or drug abuse patient.[facility] HospitalIn the event this information is protected by the Federal Confidentiality of Alcohol and Drug Abuse Patient Records regulations: The Federal rules restrict any use of the information to criminally investigate or prosecute any alcohol or drug abuse patient.[facility] HospitalIn the event this information is protected by the Federal Confidentiality of Alcohol and Drug Abuse Patient Records regulations: The Federal rules restrict any use of the information to criminally investigate or prosecute any alcohol or drug abuse patient.[facility] HospitalIn the event this information is protected by the Federal Confidentiality of Alcohol and Drug Abuse Patient Records regulations: The Federal rules restrict any use of the information to criminally investigate or prosecute any alcohol or drug abuse patient.[facility] HospitalIn the event this information is protected by the Federal Confidentiality of Alcohol and Drug Abuse Patient Records regulations: The Federal rules restrict any use of the information to criminally investigate or prosecute any alcohol or drug abuse patient.[facility] HospitalIn the event this information is protected by the Federal Confidentiality of Alcohol and Drug Abuse Patient Records regulations: The Federal rules restrict any use of the information to criminally investigate or prosecute any alcohol or drug abuse patient.[facility] HospitalIn the event this information is protected by the Federal Confidentiality of Alcohol and Drug Abuse Patient Records regulations: The Federal rules restrict any use of the information to criminally investigate or prosecute any alcohol or drug abuse patient.[facility] HospitalIn the event this information is protected by the Federal Confidentiality of Alcohol and Drug Abuse Patient Records regulations: The Federal rules restrict any use of the information to criminally investigate or prosecute any alcohol or drug abuse patient.[facility] HospitalIn the event this information is protected by the Federal Confidentiality of Alcohol and Drug Abuse Patient Records regulations: The Federal rules restrict any use of the information to criminally investigate or prosecute any alcohol or drug abuse patient.[facility] HospitalIn the event this information is protected by the Federal Confidentiality of Alcohol and Drug Abuse Patient Records regulations: The Federal rules restrict any use of the information to criminally investigate or prosecute any alcohol or drug abuse patient.[facility] HospitalIn the event this information is protected by the Federal Confidentiality of Alcohol and Drug Abuse Patient Records regulations: The Federal rules restrict any use of the information to criminally investigate or prosecute any alcohol or drug abuse patient.[facility] HospitalIn the event this information is protected by the Federal Confidentiality of Alcohol and Drug Abuse Patient Records regulations: The Federal rules restrict any use of the information to criminally investigate or prosecute any alcohol or drug abuse patient.[facility] HospitalIn the event this information is protected by the Federal Confidentiality of Alcohol and Drug Abuse Patient Records regulations: The Federal rules restrict any use of the information to criminally investigate or prosecute any alcohol or drug abuse patient.[facility] HospitalIn the event this information is protected by the Federal Confidentiality of Alcohol and Drug Abuse Patient Records regulations: The Federal rules restrict any use of the information to criminally investigate or prosecute any alcohol or drug abuse patient.[facility] HospitalIn the event this information is protected by the Federal Confidentiality of Alcohol and Drug Abuse Patient Records regulations: The Federal rules restrict any use of the information to criminally investigate or prosecute any alcohol or drug abuse patient.[facility] HospitalIn the event this information is protected by the Federal Confidentiality of Alcohol and Drug Abuse Patient Records regulations: The Federal rules restrict any use of the information to criminally investigate or prosecute any alcohol or drug abuse patient.[facility] HospitalIn the event this information is protected by the Federal Confidentiality of Alcohol and Drug Abuse Patient Records regulations: The Federal rules restrict any use of the information to criminally investigate or prosecute any alcohol or drug abuse patient.[facility] HospitalIn the event this information is protected by the Federal Confidentiality of Alcohol and Drug Abuse Patient Records regulations: The Federal rules restrict any use of the information to criminally investigate or prosecute any alcohol or drug abuse patient.[facility] HospitalIn the event this information is protected by the Federal Confidentiality of Alcohol and Drug Abuse Patient Records regulations: The Federal rules restrict any use of the information to criminally investigate or prosecute any alcohol or drug abuse patient.[facility] HospitalIn the event this information is protected by the Federal Confidentiality of Alcohol and Drug Abuse Patient Records regulations: The Federal rules restrict any use of the information to criminally investigate or prosecute any alcohol or drug abuse patient.[facility] HospitalIn the event this information is protected by the Federal Confidentiality of Alcohol and Drug Abuse Patient Records regulations: The Federal rules restrict any use of the information to criminally investigate or prosecute any alcohol or drug abuse patient.[facility] HospitalIn the event this information is protected by the Federal Confidentiality of Alcohol and Drug Abuse Patient Records regulations: The Federal rules restrict any use of the information to criminally investigate or prosecute any alcohol or drug abuse patient.[facility] HospitalIn the event this information is protected by the Federal Confidentiality of Alcohol and Drug Abuse Patient Records regulations: The Federal rules restrict any use of the information to criminally investigate or prosecute any alcohol or drug abuse patient.[facility] HospitalIn the event this information is protected by the Federal Confidentiality of Alcohol and Drug Abuse Patient Records regulations: The Federal rules restrict any use of the information to criminally investigate or prosecute any alcohol or drug abuse patient.[facility] HospitalIn the event this information is protected by the Federal Confidentiality of Alcohol and Drug Abuse Patient Records regulations: The Federal rules restrict any use of the information to criminally investigate or prosecute any alcohol or drug abuse patient.[facility] HospitalIn the event this information is protected by the Federal Confidentiality of Alcohol and Drug Abuse Patient Records regulations: The Federal rules restrict any use of the information to criminally investigate or prosecute any alcohol or drug abuse patient.[facility] HospitalIn the event this information is protected by the Federal Confidentiality of Alcohol and Drug Abuse Patient Records regulations: The Federal rules restrict any use of the information to criminally investigate or prosecute any alcohol or drug abuse patient.[facility] FOR RECORDS PERTAINING TO PATIENTS WHO [...] BE BASED ON THE PRIMARY CLINICAL RECORDS. [facility] [employer] [facility]. provides no warranty or guarantee of the accuracy or completeness of information in this document.
--- OUTSIDE RECORDS SUMMARY | 2025-03-22 20:44 | XMS_ITS | Clinical Summary ---
Author Organization [facility] Address [address] [place] [address] Phone Care Team Providers Care Deputy Chief Magistrate Name Role Phone Unavailable Primary Care Provider Unavailabl e Social History Tobacco UseTypesPacks/DayYears UsedDateSmoking Tobacco: Never Assessed CommentsUnknownSex and Gender InformationValueDate RecordedSex Assigned at Not on fileLegal BrzMvnnza47/26/2024 8:23 AM EDTGender IdentityNot on fileSexual OrientationNot on file Plan of Treatment Health MaintenanceDue DateLast DoneCommentsHIV Ugayzqxwk1995Lipid Panel 1995TSH Level1995MMR Vaccines (1 of 1 - Standard series)1996 Hepatitis C Ztbzjgtbi71/17/2013Hepatitis B Vaccines (1 of 3 - 19+ 3-dose series) 2014HPV/Zdmhsc8603/04/2016HPV Vaccines (1 - 3-dose standard series) 2022Influenza Vaccine (#1)5COVID-19 Vaccine (3 - 2024- season) 505/07/2020, 07/22/2020Yearly Adult Pfajdvqi29/07/2023 Cervical Cancer Bbfvoyods35/04/2027Pap Smear/TaP/Tdap/Td Vaccines (2 - Td or Tdap)/12/2022Zoster [...]
--- OUTSIDE RECORDS SUMMARY | 2025-03-22 20:44 | XMS_ITS | Clinical Summary ---
Author Organization [facility] Address [address] [place] [address] Care Team Providers Care Instructor Painting Name Role Phone Amanda Ford ENVIRONMENTAL FIELD SERVICES TECHNICIAN Primary Care Provider Allergies Active AllergyReactionsCriticalityNoted AjrtDsevnpqoRxzlsnAtedqcmWkmg18/02/2023 Patient had gastric bypass surgery in April [...] MORNING AND BEFORE BEDTIME 60 capsule 5Active lamoTRIgine (LaMICtal) 200 MG tablet Take 200 mg by mouth in the morning.Active MAGnesium-Oxide 400 (240 Mg) MG tablet Take 400 mg by mouth Daily5Active azithromycin (Zithromax Z-Waylon) 250 MG tablet Indications:Sore throat,Upper respiratory tract infection, unspecified typeAs directed 6 tablet 5Active albuterol HFA 90 mcg/act inhaler Indications:WheezingInhale 2 puffs every 4 (four) hours if needed for wheezing 18 g 6Active Active Problems ProblemNoted DateDiagnosed DateThyroid zlbrgvp9003/06/2025H/O gastric sleeve 3 weeks gestation of ([facility])03/06/2025Third trimester ([facility])03/06/20259070Fdqhkdftoky32/12/2024Estimated Date of EkapappyKglyugcaSpa24/06/2026ased on Est. Date of Conception Encounters DateTypeDepartmentCare CnhlBeupihgffeh34/05/2025[place] [address] Garfield BabcockserraClovis, [place] 03/21/2025linisync Result Encounter [facility] External Department Unsolicited Basim Martinez DO 03/20/20258109Jedojy40/03/2025[place] [address] Kerrie BabcockOWENSBORO, [place] 03/19/2025 11:00 [place] [address] Basim Maritnez, 35 weeks gestation of ([facility]); Third trimester ([facility]); H/O gastric sleeve; Thyroid disease; Sore throat; Upper respiratory tract infection, unspecified type03/19/2025amboo [place] [address] Basim Martinez DO 03/18/2025linisync Result Encounter NOM[facility] External Department Unsolicited Basim Martinez, DO 03/12/2025Patient Outreach [facility] [address] [place] [address] [phone] Jojo Be LPN 03/12/20255586Itpmrz03/18/2025 2:20 PM ESTRoutine [facility] OB[facility]IE [address] [facility] [place] [address] Jojo Ames PA Third trimester ([facility]); 33 weeks gestation of ([facility]); Thyroid disease; H/O gastric rwrrux6903/05/2025Telephone [facility] [address] [facility] [place] [address] Marsha Asif MA 03/05/2025External Result Encounter [facility] HERNANDEZ [address] [place] [address] Basim Martinez, DO 03/05/20251461Cxnduu62/18/2025Bamboo flowsheet [facility] [address] [place] [address] Jojo Ames PA 2025linisync Result Encounter NOMS External Department Unsolicited Basim Martinez, DO 03/04/20257245Gmgsqq83/11/2025linisync Result Encounter NOMS External Department Unsolicited Basim Martinez, DO 02/19/2025 1:00 PM ESTRoutine [facility] OBEAMONN [address] [place] [address] Basim Martinez, DO Third trimester ([facility]); 31 weeks gestation of ([facility]); TSH (thyroid-stimulating hormone deficiency); H/O gastric qxbwfp8502/19/2025linisync Result Encounter NOM[facility] External Department Unsolicited Basim Martinez, DO 5Bamboo flowsheet [facility] OBGYTanja [address] [place] [address] Basim Martinez, DO 02/12/2025bstract [facility] [address] [place] [address] Jojo Be LPN 02/12/20252372Terzum02/24/2025Patient Outreach [facility] [address] [place] [address] Jojo Be LPN 02/08/2025bstract [facility] [address] [facility] [place] [address] Kerrie Babcock MA 02/07/2025bstract [facility] [address] [facility] [place] [address] Basim Martinez, DO 02/06/2025 2:30 PM EDTRoutine [facility] [place] [facility] [address] [facility] [place] [address] Jojo Ames, PA Third trimester ([facility]); 29 weeks gestation of ([facility])02/06/2025amboo flowsheet [facility] [place] [facility] [address] [facility] [place] [address] Jojo Ames PA 01/31/2025bstract [facility] [address] [facility] [place] [address] Basim Martinez, 01/30/2025 2:30 PM EDTAncillary Procedure [facility] [address] [facility] [place] [address] TSH (thyroid-stimulating hormone deficiency)01/30/20255514Cxdgex93/06/2025Telephone [facility] [address] [facility] [place] [address] Marsha Asif MA 01/16/2025 11:20 AM EDTRoutine [facility] [address] [facility] [facility] [address] Mima Duenas, TY 26 weeks gestation of ([facility] Second trimester ([facility]); TSH (thyroid-stimulating hormone deficiency)5Bamboo flowsheet [facility] [place] [facility] [address] [facility] [place] [address] Mima Duenas, TY 5Clinisync Result Encounter NOM[facility] External Department Unsolicited Basim Martinez, 01/11/2025Telephone [facility] [address] [facility] [place] [address] Basim Martinez DO 01/10/2025Telephone [facility] [place] [facility] [address] [facility] [place] [address] Jojo Ames PA 5Clinisync Result Encounter [facility]OM[facility] External Department Unsolicited Jojo Ames PA 01/08/2025Telephone [facility] [address] [facility] [place] [address] Jojo Ames PA 5Abstract [facility] [place] [facility] [address] [facility] [place] [address] Basim Martinez DO from Last 3 Months Immunizations ImmunizationAdministration DatesNext PbbUudn1712/25/2022 Family History Medical HistoryRelationNameCommentsDiabetesFatherGreg spearsHypertensionFather Delbert spearsThyroid diseaseFatherGreg spearsObesityMotherMary spearsSkin cancer MotherMary spearsThyroid diseaseMotherMary spearsDiabetesPaternal Grandfather Ayaan FritzRelationNameStatusCommentsFatherGreg spearsAliveMotherMary nunez AlivePaternal GrandfatherLarry FritzSisterAlive Social History Tobacco UseTypesPacks/DayYears UsedDateSmoking Tobacco: FormerCigarettes0.53 Quit: 05/24/2024Smokeless Tobacco: Never Tobacco Cessation:Counseling Given: Not Answered Alcohol UseStandard Drinks/WeekCommentsNot Currently0 (1 standard drink = 0.6 oz pure alcohol)caffeine: 1-2 cups per day teaPHQ-2AnswerDate RecordedPatient Health Questionnaire-2 Hqwke282Estimated Date of Delivery JaonzxdoHko10/06/2026ased on Est. Date of ConceptionSex and Gender Information ValueDate RecordedSex Assigned at XiswzRizdim18/04/2023 8:10 PM EDTLegal Sex Zldkqs1001/17/2023 9:50 PM EDTGender IxytsmdgTvmsjn38/04/2023 8:10 PM EDTSexual OrientationNot on fileTravel HistoryTravel StartTravel AkeRrwxdny55/22/2025 03/16/2025 Last Filed Vital Signs Vital SignReadingTime TakenCommentsBlood Mwgswxyw525/7003/19/2025 11:15 AM EST Esvng026508/22/2024 10:04 AM EDTTemperature--Respiratory Lunk534808/22/2024 10:04 AM EDTOxygen Omulbbpaaw21%08/22/2024 10:04 AM EDTInhaled Oxygen Concentration-- Ozfsca318 kg (304 lb 6.4 oz)03/19/2025 11:15 AM ENXDupmky535.3 cm (5' 11 ) 08/22/2024 10:04 AM EDTBody Mass Index42.46008/22/2024 10:04 AM EDT Plan of Treatment DateTypeDepartmentCare Team (Latest Contact Info)Ybulvvnxuya06/09/2025 1:50 PM ESTRoutine [facility] [address] [facility] [place] [address] Jojo Ames PA [address] [facility] [address] [place] [address] 08/21/2025 9:30 AM EDTOffice Visit [facility] [place] [facility] [address] [place] [address] Darleen Sinclair MD [address] [place] [address] Health MaintenanceDue DateLast DoneCommentsCOVID-19 Vaccine (2024- season) /07/2020, 07/22/2020Influenza Vaccine (#1)2024HPV/Cotest , 10/28/2020, 10/16/2018Cervical Cancer Oqektdfkg27/04/2027 Pap Smear, 11/02/2021neumococcal Vaccine: Pediatrics (0 to 5 Years) and At-Risk Patients (6 to 64 Years)Aged OutNo longer eligible based on patient's age to complete this topic Goals GoalPatient Goal TypeAssociated ProblemsRecent ProgressPatient-Stated?Author Reminders Care PlanOB RemindersNoOpen Scheduling, Background Procedures Procedure NamePriorityDate/TimeAssociated DiagnosisCommentsUS OB BPP W NON-LLHTGI6303/21/2025 3:52 PM EST POCT URINALYSIS HPJKVTXIGuqdjii64/02/2025 11:25 AM EST 35 weeks gestation of ([facility]) Third trimester ([facility]) US OB BPP W NON-ZQXIXJ6903/18/2025 4:09 PM EST US OB 14+ WEEKS ANATOMY SCAN03/05/2025 3:47 PM EST POCT URINALYSIS WCRJUHTYQolnrlu61/18/2025 2:41 PM EST 33 weeks gestation of ([facility]) US OB BPP W NON-EVXVNF5903/04/2025 9:40 PM EST US OB BPP W NON-ZJKXBP9702/26/2025 8:30 AM EST ALL THYROID STIM NPSJOGDDebrhyf87/04/2025 2:18 PM EST POCT URINALYSIS NFNXFIWCTcnikod71/04/2025 1:26 PM EST Third trimester ([facility]) POCT URINALYSIS PKMLICKXIanuxfw61/22/2025 2:49 PM EDT 29 weeks gestation of ([facility]) US OB FOLLOW UP TRANSABDOMINAL MNRBSITVLdkulcg87/15/2025 3:10 PM EDT TSH (thyroid-stimulating hormone deficiency) POCT URINALYSIS KNSYSZZCPjkeikq24/01/2025 11:40 AM EDT 26 weeks gestation of ([facility]) ALL THYROID STIM QFPUCDBSxvqveo51/26/2025 2:48 PM EDT GLUCOSE 1 YBBAFmehiig86/24/2025 12:00 PM EDT ALL CBC WITH AUTO URROEermyxj96/24/2025 12:00 PM EDT PAP AGSVSQjvgdqa38/04/2024 12:00 AM ESTTHINPREP TIS PAP REFLEX HPV MRNA E6/E7 (10818)Gfhwfrb0411/03/2021 from Last 3 Months or Most Recently Relevant to Health Maintenance Results * US OB BPP W NON-STRESS (03/21/2025 3:52 PM EST) Only the most recent of4 resultswithin the time period is included. Anatomical RegionLateralityModalityOtherSpecimen (Source)Anatomical Location / LateralityCollection Method / VolumeCollection TimeReceived Time03/21/2025 3:52 PM EST Narrative 03/21/2025 3:54 PM EST [facility] ?[address] ? [place] [address] ? Ultrasound Report ? Signed ? Patient: GUZMAN DEL CID ?MR#: [id number] ?? : 1995 ?Acct:[id number] ?? Age/Sex: 30 / F ?ADM Date: 12/04/25 ?? Loc: [facility] ? Attending Dr: Basim Martinez D.O. ? Ordering Physician: Basim Martinez D.O. ?? Date of Service: 03/21/25 ?? Procedure(s): US OB BPP w non-stress ?? Accession Number(s): [id number] ? cc: Basim Martinez D.O.; AMANDA FORD ? [facility] ? [address] ? [place] [address] ? Patient Name: ?? GUZMAN DEL CID ? MRN: [facility]:[id number] ? date: 1995 ?Sex: F ?? [place] [facility] [place] Current Patient Location: ? Accession/Order Number: [id number] ?? Exam Date: 03/21/2025 ??15:00 ?Report Date: 03/21/2025 ??15:52 ? At the request of: ?? BASIM ??JUAN ??DO ? Procedure: ??US OB BPP w non-stress ? Biophysical profile. ? Reason for exam: Thyroid deficiency decreased movement ? COMPARISON: 03/18/2025 ? TECHNIQUE: Transabdominal imaging of the gravid uterus was obtained. ? FINDINGS: The real estate site analyst reports a BPP of 8 out of 8. ??STARR is normal at 14.4 ?? cm. ?? heart rate 136 bpm. ? US/US OB BPP w non-stress ?? IMPRESSION: BPP 8 out of 8. ? Impression dictated by: Sravan Dickinson Jr., D.O. ??03/21/2025 3:52 PM ? Dictation Location: [place] [address] ? Electronically authenticated by: [id number] ??Y ?? Date: 03/21/2025 ??15:52 ? Dictated By: ?Sravan Dickinson M.D. ? Signed By: ?03/21/25 1554 ? DD/ 1552 ? TD/TT: ? International Student Advisor: Procedure Note Radiology, Radiologist, MD - 03/22/[address] [address] Ultrasound Report Signed Patient: GUZMAN DEL CID [facility]#: [id number] : 1995Acct:[id number] Age/Sex: 30 / FADM Date: 03/21/25 Loc: [facility] Attending : Basim Martinez D.O. Ordering Physician: Basim Martinez D.O. Date of Service: 03/21/25 Procedure(s): US OB BPP w non-stress Accession Number(s): [id number] cc: Basim Martinez D.O.; AMANDA FORD [place] [id number] Patient Name: GUZMAN DELC ID MRN: [facility]:[id number] date: 1995 Sex: F [place] [facility] [place] Patient Location: Accession/Order Number: [id number] Exam Date: 03/21/2025 15:00 Report Date: 03/21/2025 15:52 At the request of: BASIM MARTINEZ DO Procedure: US OB BPP w non-stress Biophysical profile. Reason for exam: Thyroid deficiency decreased movement COMPARISON: 03/18/2025 TECHNIQUE: Transabdominal imaging of the gravid uterus was obtained. FINDINGS: The real estate site analyst reports a BPP of 8 out of 8. STARR is normal at14.4 cm. heart rate 136 bpm. US/US OB BPP w non-stress IMPRESSION: BPP 8 out of 8. Impression dictated by: Sravan Dickinson Jr., D.O. 03/21/2025 3:52 PM Dictation Location: [place] [address] Electronically authenticated by: [id number] Y Date: 5:52 Dictated By: Sravan Dickinson M.D. Signed By:03/21/25 1554 DD/ 1552 TD/TT: International Student Advisor: Authorizing ProviderResult TypeResult StatusCorey Juan DOCLINISYNC IMAGINGFinal Result * POCT urinalysis dipstick manually resulted (03/19/2025 11:25 AM EST) Only the most recent of5 resultswithin the time period is included. ComponentValueRef RangeTest MethodAnalysis TimePerformed AtPathologist Signature Color, UAYellowClarity, UAClearGlucose, UANegativeNegative - 1999(110) ++++ mg/dLBilirubin, UANegativeNegative - 4(70) +++ mg/dLKetones, UANegativeNegative - 160(16) ++++ mg/dLSpec Grav, UA1.0251 - 1.03Blood, UANegativeNegative - 50 Yehuda/mcLpH, UA6.55 - 9Protein, UANegativeNegative - 2000(20) ++++ mg/dL Urobilinogen, UA1.00.2 - 12 mg/dLLeukocytes, UANegativeNegative - 500+++ Kourtney/mcL Nitrite, UANegativeNegative - PositiveSpecimen (Source)Anatomical Location / LateralityCollection Method / VolumeCollection TimeReceived JiztIstnv39/02/2025 11:25 AM EST Narrative Authorizing ProviderResult TypeResult StatusCorechip Martinez DOPOINT OF CARE TEST ENTER/EDIT ORDERABLESFinal Result * US OB 14+ weeks anatomy scan (03/05/2025 3:47 PM EST)Anatomical Region LateralityModalityBodyUltrasoundSpecimen (Source)Anatomical Location / LateralityCollection Method / VolumeCollection TimeReceived Time03/05/2025 3:47 PM EST Narrative 03/05/2025 3:47 PM EST [facility] NAME[facility] ??MARIA EUGENIA HINDS : 1995 SEX: F Accession Number: [id number] ORDERING PHYSICIAN: BASIM MARTINEZ REFERRING PHYSICIAN: BASIM MARTINEZ Coding Procedures ? 18346: Ultrasound, uterus, real time with image documentation, follow up,transabdominal ? approach per fetus Indication resulting from assisted reproductive technology- IUI, History of Gastric sleeve, Obesity in . History OB History ? 1. Para 0 ? [id number] Current Cell free DNA ?low risk analysis [...] (oz) ? 11 oz EFW by: ?Hadlock (GVK-IV-FV-FL) Extended Tibia ??54.8 mm 32w 2d 47% [employer] ? 4.4 mm Head / Face / [...] MVP measures 7.3 cm. Recommendations Please see [facility] recommendations from prior clinical and/or ultrasound report documentation. Subsequent follow up or other follow up as clinically determined by primary OB provider unless otherwise specified by [facility]. Results forwarded to ordering provider so they can follow up with the patient as necessary. Procedure Note Radiology, Radiologist, MD - 03/05/2025 [facility] NAME: MARIA EUGENIA HINDS : 1995 SEX: F Accession Number: [id number] ORDERING PHYSICIAN: BASIM MARTINEZ REFERRING PHYSICIAN: BASIM MARTINEZ Coding Procedures 60480: Ultrasound, uterus, real time with image documentation, follow up, transabdominal approach per fetus Indication resulting from assisted reproductive technology- IUI, History of Gastric sleeve, Obesity in . History OB History 1. Para 0 [id number] Current Cell free DNA low risk analysis [...] EFW (oz) 11 oz EFW by: Hadlock (NRF-AW-RD-FL) Extended Tibia 54.8 mm 32w 2d 47% [employer] 4.4 mm Head / Face / Neck [...] MVP measures 7.3 cm. Recommendations Please see [facility] recommendations from prior clinical and/or ultrasoundreport documentation. Subsequent follow up or other follow up as clinically determined byprimary OB provider unless otherwise specified by [facility]. Results forwarded to ordering provider so they can follow up with thepatient as necessary. Authorizing ProviderResult TypeResult StatusCorey Juan SIERRA OB US PROCEDURES Final Result * ALL THYROID STIM HORMONE (02/19/2025 2:18 PM EST) Only the most recent of2 resultswithin the time period is included. ComponentValueRef RangeTest MethodAnalysis TimePerformed AtPathologist Signature THYROID STIMULATING HORMONE1.3470.358 - 3.740 uIU/mLTBHSpecimen (Source) Anatomical Location / LateralityCollection Method / VolumeCollection Time Received Time02/19/2025 2:18 PM EST02/19/2025 2:18 PM EST Narrative JEREMY - 02/19/2025 3:26 PM EST Authorizing ProviderResult TypeResult StatusCorey Juan DOCLINISYNCFinal Result Performing OrganizationAddressCity/State/ZIP CodePhone Number JEREMY [facility] * OB follow up transabdominal approach (01/30/2025 3:10 [...] MD Authorizing ProviderResult TypeResult StatusMima Duenas NPIMG US PROCEDURESFinal Result * GLUCOSE 1 HOUR (01/09/2025 12:00 PM EDT)ComponentValueRef RangeTest Method Analysis TimePerformed AtPathologist SignatureGLUCOSE 1 QGWH306<130 mg/dLTBH Specimen (Source)Anatomical Location / LateralityCollection Method / Volume Collection TimeReceived Time01/09/2025 12:00 PM EDT01/09/2025 12:02 PM EDT Narrative CLINISYNC - 01/09/2025 12:55 PM EDT Authorizing ProviderResult TypeResult StatusAmy Kwaku FINE BLOOD ORDERABLES Final ResultPerforming OrganizationAddressCity/State/ZIP CodePhone Number CLINISYNC TB * (ABNORMAL) ALL CBC WITH AUTO DIFF (01/09/2025 12:00 PM EDT)ComponentValueRef RangeTest MethodAnalysis TimePerformed AtPathologist SignatureTBH WBC11.8(H) 4.0 - 11.0 10 3/uLTBHTBH RBC4.06(L)4.20 - 5.40 10 6/uLTBHTBH HGB12.012.0 - 16.0 g/dLTBHTBH HCT35.6(L)36.0 - 48.0 %TBHTBH MCV87.781.0 - 99.0 fLTBHTBH MCH 29.626.7 - 34.0 pgTBHTBH MCHC33.729.9 - 35.2 g/dLTBHTBH RDW13.211.0 - 15.0 % TBHTBH OZL677150 - 450 10 3/uLTBHTBH MPV8.7(L)9.5 - 13.5 [...] / LateralityCollection Method / VolumeCollection Time Received Time09/ 12:00 PM EDT01/09/2025 12:02 PM EDT Narrative CLINISYNC - 01/09/2025 12:31 PM EDT Authorizing ProviderResult TypeResult StatusAmy [place] PACLINISYNCFinal Result Performing OrganizationAddressCity/State/ZIP CodePhone Number CLINISYNC TBH * Pap Smear (02/20/2024 12:00 AM EST)Specimen (Source)Anatomical Location / LateralityCollection Method / VolumeCollection TimeReceived TimeSwabCervical swab / Unknown Narrative Authorizing ProviderResult TypeResult StatusCorey Juan DOLAB CYTOLOGY ORDERABLESFinal ResultPerforming OrganizationAddressCity/State/ZIP CodePhone Number EXTERNAL LAB * THINPREP TIS PAP REFLEX HPV MRNA E6/E7 (40296) (11/03/2021)ComponentValueRef RangeTest MethodAnalysis TimePerformed AtPathologist SignatureCLINICAL INFORMATION:None givenNOMS LEGACY EXTERNAL LABLMP:None givenNOMS LEGACY EXTERNAL LABPREV. PAP:None givenN[facility] LEGACY EXTERNAL LABPREV. BX:None given [facility] EXTER[facility] LABSOURCE:Cervix, EndocervixNOMS LEGACY EXTERNAL LAB STATEMENT OF ADEQUACY:SEE COMMENTNOOK LEGACY EXTERNAL LABComment: Satisfactory for evaluation. Endocervical/transformation zone component present. INTERPRETATION/RESULT:Negative for intraepithelial lesion or malignancy.[facility] EXTERNAL LABCOMMENT:This Pap test has been evaluated with computer assisted technology.[facility]TERNAL LABCYTOTECHNOLOGIST:SEE COMMENTNOOK LEGACY EXTERNAL LABComment: DMK, CT(ASCP) CT screening location: [place] [address]. COMMENTSEE COMMENTNOOK LEGACY EXTERNAL LABComment: EXPLANATORY NOTE: The Pap [...] INCORRECT, PLEASE CONTACT CLIENT SERVICES. PHONE NUMBER: [phone] Specimen (Source)Anatomical Location / LateralityCollection Method / Volume Collection TimeReceived Time11/03/2021 Narrative Authorizing ProviderResult TypeResult StatusMona J Nataprawi DOECW LABSFinal ResultPerforming OrganizationAddressCity/State/ZIP CodePhone Number [facility] from Last 3 Months or Most Recently Relevant to Health Maintenance Additional Health Concerns Active ProblemsNoted DateDiagnosed DateOB Rxgkzighz29/07/2025 Insurance Care Teams Team MemberRelationshipSpecialtyStart DateEnd Date Amanda Ford NP [facility] [place] [address] PCP - GeneralFamily Jhstyfim22/2/23
--- OUTSIDE RECORDS SUMMARY | 2025-03-22 20:44 | XMS_ITS | Clinical Summary ---
Author Organization [facility] Address [address] [place] [address] Care Team Providers Care Electronics Recycler Name Role Phone Unavailable Primary Care Provider [...] RecordedNational Score (1-100), lower number is lower rmmp758002/28/2024State Score (1-10), lower number is lower wczd71004/29/2023 Data from: https://www.neighborhoodatlas.medicine.[facility]/. Last address used for elusypcerlb442 self ueezloixf60/12/2024CommentsYesSex and Gender InformationValueDate RecordedSex Assigned at BirthNot on fileLegal SexFemale 07/13/2023 12:45 PM EDTGender IdentityNot on fileSexual OrientationNot on file Last Filed Vital Signs Vital SignReadingTime TakenCommentsBlood Pressure--Pulse--Temperature-- Respiratory Rate--Oxygen Saturation--Inhaled Oxygen Concentration--Wvtnmn58.3 kg (216 lb 11.4 oz)02/28/2024 2:03 PM YQUUheagi069.3 cm (5' 11 )02/28/2024 2:03 PM ESTBody Mass Index30.23104/29/2023 2:03 PM EST Plan of Treatment Health MaintenanceDue DateLast DoneCommentsAnxiety Puwlknjwz68/17/2013Depression Hhfbsoams67/17/2013Hepatitis B Vaccine (1 of 3 - 19+ 3-dose series)2014 Cervical Cancer Aajegblkd64/17/2016HPV Vaccine (1 - 3-dose SCDM series) 2022ovid-19 Vaccine ( - 2024- season)2024Influenza Vaccine (#1) 2024DTaP,Tdap,Td Vaccine (2 - Td or Tdap)/12/2022RSV Vaccine (1 - 1-dose 75+ series)2070HIV TzrvkuftgZdpldmwud37/16/2024Hepatitis C RpnqowmjaKwmapibbi72/16/2024 Procedures Procedure NamePriorityDate/TimeAssociated DiagnosisCommentsHIV 1/2 COMBO WITH REFLEX TO SSFUKTHDAPWIVYKLsisvxa49/16/2024 3:21 PM EST Special screening examination for infectious diseases HEPATITIS C ANTIBODY IA WITH PYPGWJSIIKMSNujfbnb06/16/2024 3:21 PM EST Special screening examination for infectious diseases from Last 3 Months or Most Recently Relevant to Health Maintenance Results * HIV 1/2 COMBO WITH REFLEX TO DIFFERENTIATION (04/02/2024 3:21 PM EST)Component ValueRef RangeTest MethodAnalysis TimePerformed AtPathologist SignatureHIV 12 Combo (Ag/Ab)ZeimkynvhaiPirbildoiie31/17/2024 12:27 PM [facility]HIV-1/2 AB (Confirmatory)04/03/2024 12:27 PM [facility] LABComment:Test not indicated.HIV Cadftbeeteseme87/17/2024 12:27 PM [facility] LABComment: No evidence of HIV-1 or HIV-2 infection. Should recent infection be suspected, repeat testing may be considered 2-3 weeks after this draw. [place] Rev. Code 3701.243(E): This information has been [...] Final ResultPerforming OrganizationAddressCity/State/ZIP CodePhone Number [facility] [address] [place] [address], * HEPATITIS C ANTIBODY IA WITH CONFIRMATION (04/02/2024 3:21 PM EST)Component ValueRef RangeTest MethodAnalysis TimePerformed AtPathologist SignatureHep C Antibody ECCfuurozmOwhyqeom08/17/2024 11:20 AM [facility] LABComment:The result suggests no evidence of active infection with Hepatitis C virus. Should recent infectionbe suspected, repeat testing may be considered 4-6 weeks after this draw.Specimen (Source)Anatomical Location / Laterality Collection Method / VolumeCollection TimeReceived TimeBloodBLOOD SPECIMEN / UnknownVenipuncture / Czzbmyf4204/02/2024 3:21 PM EST04/02/2024 3:22 PM EST Narrative Authorizing ProviderResult TypeResult StatusShelly Hernandez APRN.CNPLABORATORY Final ResultPerforming OrganizationAddressCity/State/ZIP CodePhone Number [facility] [address] [facility] [address] [address], from Last 3 Months or Most Recently Relevant to Health Maintenance Insurance
[2025-03-22 21:07] VITALS: BP 117/65; PULSE 69
[2025-03-22 21:21] LABS: Glucose Urine UA NEGATIVE (NEGATIVE)
== END 2025-03-22 21:50 | disposition home or self-care (01) ==
PROVIDERS: Admitting Provider Obstetrics & Gynecology; PCP Nurse Practitioner Family; Visit Provider Obstetrics & Gynecology
DX: O36.8130 Decreased fetal movements, third trimester, not applicable or unspecified (principal); Z3A.35 35 weeks gestation of pregnancy
CPT/HCPCS: 59025; 81003; G0378; G0379

== ENCOUNTER 2025-03-25 13:56 | Outpatient (OUT) | payer MEDICAID, SELFPAY ==
--- NOTE | 2025-03-25 14:03 | US_ITS ---
[place] [address] Patient Name: GUZMAN DEL CID MRN: [id number] date: 1995 Sex: F Assigned Patient Location: [facility] Current Patient Location: Accession/Order Number: [id number] Exam Date: 03/25/2025 14:05 Report Date: 03/25/2025 16:30 At the request of: BASIM BIRMINGHAM DO Procedure: US OB BPP w non-stress US OB BPP w non-stress 03/25/2025 2:20 PM SIGNS AND SYMPTOMS: ^Thyroid stimulating hormone deficiency PROTOCOL: Transabdominal sonographic imaging of the gravid uterus COMPARISON: 03/21/2025 FINDINGS: Estimated gestational age: 35 weeks and 6 days heart rate: 127 bpm Amniotic fluid index: 11.08 cm. The deepest vertical pocket measures 4.99 cm. Biophysical profile: breathing movements: 2/2 Gross body movements: 2/2 tone: 2/2 Amniotic fluid volume: 2/2 US/US OB BPP w non-stress IMPRESSION: Biophysical profile score: 8 Impression dictated by: Zachary Simon M.D. 03/25/2025 4:30 PM Dictation [facility] Electronically authenticated by: [id number] Y Date: 03/25/2025 16:30
[2025-03-25 14:26] VITALS: BP 123/60; PULSE 80
== END 2025-03-25 14:54 | disposition home or self-care (01) ==
LOC: US 13:56 → FBC 14:00
PROVIDERS: PCP Nurse Practitioner Family; Visit Provider Obstetrics & Gynecology
DX: O26.893 Other specified pregnancy related conditions, third trimester (principal); O99.283 Endocrine, nutritional and metabolic diseases complicating pregnancy, third trimester; Z3A.35 35 weeks gestation of pregnancy
CPT/HCPCS: 76818

== ENCOUNTER 2025-03-26 18:53 | Outpatient (REF) | payer MEDICAID, SELFPAY ==
--- OUTSIDE RECORDS SUMMARY | 2024-04-25 08:30 | XMS_ITS ---
Author Organization [facility] Address [address] [facility] [place] [address] Care Team Providers Care Dry Pan Operator Name Role Phone Tabitha Zamora Primary Care Provider Jennifer Hahn Unavailable [phone] Julieta Jefferson [phone] REASON FOR VISIT 3 month f/u Encounters Encounter Location Date Provider Diagnosis [facility] [address] [address] 04/25/2024 Julieta Jefferson Plan Of Treatment No Information Progress Notes * GUZMAN DEL CIDDOB: 5 (30 yo F)Acc No.[id number]:04/25/2024 Behavioral Health Patient: GUZMAN AMES Provider:Gilbert JeffersonDOB:1995???Age:29 Y ???Sex:FemaleDate:04/25/2024Phone:[phone]:[address] [id number]:Tabitha Zamora Subjective: * Chief Complaints: * 3 month f/u * Electronic signature of NELIDA Newell FNP on 03/26/2025 at 01:44 PM EST Sign off status: Pending * Appointment Provider: Adin Jefferson Date: 0 04/25/2024 Generated for Printing/Faxing/eTransmitting on:?03/26/2025 01:44 PM EST
--- OUTSIDE RECORDS SUMMARY | 2024-07-25 05:30 | XMS_ITS ---
Author Organization [facility] Address [address] [place] [address] Care Team Providers Care County Library Director Name Role Phone Tabitha Zamora Primary Care Provider [phone] Jennifer Hahn Unavailable [phone] Julieta Jefferson [phone] REASON FOR VISIT 3 month f/u Encounters Encounter Location Date Provider Diagnosis [facility] [address] [place] [address] 07/25/2024 Julieta Jefferson Plan Of Treatment No Information Progress Notes * GUZMAN DEL CIDDOB: 5 (30 yo F)Acc No.[id number]:07/25/2024 Behavioral Health Patient: GUZMAN AMES Provider:Gilbert ReyezB:1995???Age:29 Y ???Sex:FemaleDate:07/25/2024Phone:[phone]:[address] [place]-[id number]:Tabitha Zamora Subjective: * Chief Complaints: * 3 month f/u * Electronic signature of NELIDA Newell FNP on 03/26/2025 at 01:44 PM EST Sign off status: Pending * Appointment Provider: Adin Jefferson Date: 0 07/25/2024 Generated for Printing/Faxing/eTransmitting on:?03/26/2025 01:44 PM EST
--- OUTSIDE RECORDS SUMMARY | 2025-03-19 11:00 | XMS_ITS | Encounter Summary ---
Author Organization [facility] Address [address] [place] [address] Care Team Providers Care Care Director Name Role Phone Amanda Ford MATERIAL DAMAGE APPRAISER Primary Care Provider Reason for Visit * ReasonCommentsRoutine Visit Encounter Details DateTypeDepartmentCare Team (Latest Contact Info)Hnxmvseznek33/02/2025 11:00 AM ESTRoutine [facility] [address] [facility] [place] [address] Les Martinez DO [address] [facility] [address] [place], [place] [phone] 35 weeks gestation of ([facility]); Third trimester ([facility]); H/O gastric sleeve; Thyroid disease; Sore throat; Upper respiratory tract infection, unspecified type Social History Tobacco UseTypesPacks/DayYears UsedDateSmoking Tobacco: FormerCigarettes0.53 Quit: 05/24/2024Smokeless Tobacco: NeverAlcohol UseStandard Drinks/WeekComments Not Currently0 (1 standard drink = 0.6 oz pure alcohol)caffeine: 1-2 cups per day teaPHQ-2AnswerDate RecordedPatient Health Questionnaire-2 Obcqu045 Estimated Date of DaqulykeIfckywwnCqd24/06/2026ased on Est. Date of ConceptionSex and Gender InformationValueDate RecordedSex Assigned at Bupxtt8601/19/2023 8:10 PM EDTLegal JuzPijvci58/02/2023 9:50 PM EDTGender Identity Dzzxeu9401/19/2023 8:10 PM EDTSexual OrientationNot on fileTravel HistoryTravel StartTravel XwbYzxgksk86/22/232989/documented as of this encounter Last Filed Vital Signs Vital SignReadingTime TakenCommentsBlood Auijrhzk260/7003/19/2025 11:15 AM EST Pulse--Temperature--Respiratory Rate--Oxygen Saturation--Inhaled Oxygen Concentration--Xqboes277 kg (304 lb 6.4 oz)03/19/2025 11:15 AM [...] gastric sleeve 03/06/2025 33 weeks gestation of ([facility]) 03/06/2025 Third trimester ([facility]) 03/06/2025 Resolved Ambulatory Problems Diagnosis Date Noted [...] nursing note reviewed. Exam conducted with a supervisor component assembler present. Vitals: Estimated body mass index is 42.46 kg/m?? as calculated from the following: Height as of 08/22/24: 5' 11 . Weight as of this encounter: 304 lb 6.4 oz. BP: 122/70 No LMP recorded. Patient is . Assessment/Plan ICD-10-CM 1. 35 weeks gestation of ([facility]) Z3A.35 POCT urinalysis dipstick manually resulted 2. Third trimester ([facility]) Z34.93 POCT urinalysis dipstick manually resulted 3. [...] Plan of Treatment DateTypeDepartmentCare Team (Latest Contact Info)Xtxwfyqkgdw12/16/2025 10:00 AM ESTRoutine [facility] [address] [place] [address] [place] [phone] Les Martinez, DO [address] [facility] [place] [address] 08/21/2025 9:30 AM EDTOffice Visit [facility] [place] [facility] [address] [place] [phone] Darleen Sinclair MD [address], [address] [place] [address] documented as of this encounter Goals GoalPatient Goal TypeAssociated ProblemsRecent ProgressPatient-Stated?Author Reminders Care PlanOB RemindersNoOpen Scheduling, Backgrounddocumented as of this encounter Procedures Procedure NamePriorityDate/TimeAssociated DiagnosisCommentsPOCT URINALYSIS OQTNXXKSXzwuetl35/02/2025 11:25 AM EST 35 weeks gestation of ([facility]) Third trimester ([facility]) documented in this encounter [...] Visit Diagnoses Diagnosis 35 weeks gestation of ([facility]) Third trimester ([facility]) state, incidental H/O gastric sleeve Thyroid disease Unspecified disorder of thyroid Sore throat Acute pharyngitis Upper respiratory tract infection, unspecified type documented in this encounter Additional Health Concerns Active ProblemsNoted DateDiagnosed DateOB Epqkankbb58/07/2025 documented as of this encounter Care Teams Team MemberRelationshipSpecialtyStart DateEnd Date Amanda Ford NP [facility] [place] [address] PCP - GeneralFamily Ycdjjmkb39/2/23documented as of this encounter
--- OUTSIDE RECORDS SUMMARY | 2025-03-26 13:50 | XMS_ITS | Encounter Summary ---
Author Organization [facility] Address [address] [place] [address] Care Team Providers Care Banquet Bartender Name Role Phone Amanda Ford VFX ARTIST Primary Care Provider Reason for Visit * ReasonCommentsRoutine Visit Encounter Details DateTypeDepartmentCare Team (Latest Contact Info)Dfnppbqfoxs64/09/2025 1:50 PM ESTRoutine [facility] [address] [facility] [place] [address] Jojo Ames PA [address] [facility] [address] [facility] [address], [facility]11 36 weeks gestation of ([facility]); Third trimester ([facility]); H/O gastric sleeve; Thyroid disease Social History Tobacco UseTypesPacks/DayYears UsedDateSmoking Tobacco: FormerCigarettes0.53 Quit: 05/24/2024Smokeless Tobacco: NeverAlcohol UseStandard Drinks/WeekComments Not Currently0 (1 standard drink = 0.6 oz pure alcohol)caffeine: 1-2 cups per day teaPHQ-2AnswerDate RecordedPatient Health Questionnaire-2 Jupgj224 Estimated Date of NmkjxnwhKtfuhkctHnt86/06/2026ased on Est. Date of ConceptionSex and Gender InformationValueDate RecordedSex Assigned at Mapqic6201/19/2023 8:10 PM EDTLegal FfgJcgouf61/02/2023 9:50 PM EDTGender Identity Qyhyfp9701/19/2023 8:10 PM EDTSexual OrientationNot on fileTravel HistoryTravel StartTravel YvrNagutbi17/22/52825405/16/2024documented as of this encounter Last Filed Vital Signs Vital SignReadingTime TakenCommentsBlood Uiyvvxuw162/8012 1:59 PM EST Pulse--Temperature--Respiratory Rate--Oxygen Saturation--Inhaled Oxygen Concentration--Dwsign911 kg (305 lb)03/26/2025 1:59 PM ESTHeight--Body Mass [...] gastric sleeve 03/06/2025 33 weeks gestation of ([facility]) 03/06/2025 Third trimester ([facility]) 03/06/2025 Resolved Ambulatory Problems Diagnosis Date [...] nursing note reviewed. Exam conducted with a corporate general manager present. Vitals: Estimated body mass index is 42.54 kg/m?? as calculated from the following: Height as of 08/22/24: 5' 11 . Weight as of this encounter: 305 lb. BP: 138/80 No LMP recorded. Patient is . Assessment/Plan ICD-10-CM 1. 36 weeks gestation of ([facility]) Z3A.36 POCT urinalysis dipstick manually resulted 2. Third trimester ([facility]) Z34.93 POCT urinalysis dipstick manually resulted CULTURE, [...] Plan of Treatment DateTypeDepartmentCare Team (Latest Contact Info)Mlfaloscynp83/16/2025 10:00 AM ESTRoutine [facility] [address] [facility] [address] Les Martinez, [address] [facility] [address] [place], [place] [address] 08/21/2025 9:30 AM EDTOffice Visit [facility] [place] [facility] [address] [place] [phone] Darleen Sinclair MD [address] [place] [address] NameTypePriorityAssociated DiagnosesOrder ScheduleCULTURE, GROUP B STREP WITH SUSCEPTIBLITYLabRoutine Third trimester ([facility]) Expected: 03/26/2025, Expires: 03/26/2026documented as of this encounter Goals GoalPatient Goal TypeAssociated ProblemsRecent ProgressPatient-Stated?Author Reminders Care PlanOB RemindersNoOpen Scheduling, Backgrounddocumented as of this encounter Procedures Procedure NamePriorityDate/TimeAssociated DiagnosisCommentsPOCT URINALYSIS FEWZGORPOmswdzx14/09/2025 2:08 PM EST 36 weeks gestation of ([facility]) Third trimester ([facility]) documented in this encounter Results [...] 2:08 PM EST Narrative Authorizing ProviderResult TypeResult StatusJojo Ames [facility] CARE TEST ENTER/EDIT ORDERABLESFinal Result documented in this encounter Visit Diagnoses Diagnosis 36 weeks gestation of ([facility]) Third trimester ([facility]) state, incidental H/O gastric sleeve Thyroid disease Unspecified disorder of thyroid documented in this encounter Additional Health Concerns Active ProblemsNoted DateDiagnosed DateOB Ojefzfhyo62/07/2025 documented as of this encounter Care Teams Team MemberRelationshipSpecialtyStart DateEnd Date Amanda Ford NP [address] [place] [address] PCP - GeneralFamily Puzvcnre86/2/23documented as of this encounter
--- OUTSIDE RECORDS SUMMARY | 2025-03-26 18:58 | XMS_ITS | Encounter Summary ---
Author Organization [facility] Address [address] [place] [address] Care Team Providers Care Risk Management Intern Name Role Phone Amanda Ford QUALITY ASSURANCE NURSE Primary Care Provider Encounter Details DateTypeDepartmentCare Team (Latest Contact Info)Sfjhfoszbkd21/09/2025Bamboo flowsheet [facility] [address] [phone] Jojo Ames PA [address] [facility] [address] [place], [facility]11 Social History Tobacco UseTypesPacks/DayYears UsedDateSmoking Tobacco: FormerCigarettes0.53 Quit: 05/24/2024Smokeless Tobacco: NeverAlcohol UseStandard Drinks/WeekComments Not Currently0 (1 standard drink = 0.6 oz pure alcohol)caffeine: 1-2 cups per day teaPHQ-2AnswerDate RecordedPatient Health Questionnaire-2 Ogbzx037 Estimated Date of ZngrlfttTuwyiuhhKap59/06/2026Based on Est. Date of ConceptionSex and Gender InformationValueDate RecordedSex Assigned at Concdt3201/19/2023 8:10 PM EDTLegal EedGytmry73/02/2023 9:50 PM EDTGender Identity Uugpet1801/19/2023 8:10 PM EDTSexual OrientationNot on fileTravel HistoryTravel StartTravel HxaAqsfftx78/22/79178005/16/2024documented as of this encounter Plan of Treatment DateTypeDepartmentCare Team (Latest Contact Info)Ajmvibcbonx33/16/2025 10:00 AM ESTRoutine [facility] [address] [place] [address] Les Martinez DO [address] [facility] [place] [address] 08/21/2025 9:30 AM EDTOffice Visit [facility] [place] [facility] [address] [place] [phone] Darleen Sinclair MD [address], [address] [place] [address] documented as of this encounter Goals GoalPatient Goal TypeAssociated ProblemsRecent ProgressPatient-Stated?Author Reminders Care PlanOB RemindersNoOpen Scheduling, Backgrounddocumented as of this encounter Visit Diagnoses Not on filedocumented in this encounter Additional Health Concerns Active ProblemsNoted DateDiagnosed DateOB Ulkonmhvr63/07/2025 documented as of this encounter Care Teams Team MemberRelationshipSpecialtyStart DateEnd Date Amanda Ford NP [address] [facility] [place] [address] PCP - GeneralFamily Toinynzw60/2/23documented as of this encounter
--- OUTSIDE RECORDS SUMMARY | 2025-03-26 18:58 | XMS_ITS | Clinical Summary ---
Author Organization [facility] Address [address] [facility] [address], [address] [place] [address] Care Team Providers Care Lemon Picker Name Role Phone Robin Marquez MD Primary Care Provider [phone] Allergies No known active allergies Medications MedicationSigDispense QuantityRefillsLast FilledStart DateEnd DateStatus levothyroxine (SYNTHROID) 175 MCG tablet TAKE 2 TABLETS BY MOUTH ONCE ODPQG800Active ALPRAZolam (XANAX) 0.5 MG tablet TAKE 1 [...] ProblemNoted DateDiagnosed DateRight upper quadrant abdominal pain03/30/2021 Oxwiqyrobuy65/13/2021Orthostatic qwbjejhrw62/13/2021Obesity (BMI 30-39.9) 02/09/2021Obesity, Class III, BMI 40-49.9 (morbid obesity)11/10/2020hronic low back pain11/10/2020tatus post laparoscopic sleeve mnutylcnkta89/19/2021Vitamin D oqbkasgwie32/27/2928Asejfuwnfzkbbi41/20/2019Bipolar disease, jfwtnxx9412/05/2018 Plantar fasciitis, hefukwoxr03/20/2019Marijuana use12/05/2018 Resolved Problems ProblemNoted DateDiagnosed DateResolved DateMorbid obesity with BMI of 50.0- 59.9, adultMorbid obesity with BMI of 60.0-69.9, adult Family History Medical HistoryRelationNameCommentsHigh Blood PressureFatherOtherMotherOther SisterRelationNameStatusCommentsFatherAlivethyroidMotherAlivethyroidSisterOther thyroid Social History Tobacco UseTypesPacks/DayYears UsedDateSmoking Tobacco: NeverSmokeless Tobacco: NeverAlcohol UseStandard Drinks/WeekCommentsNo0 (1 standard drink = 0.6 oz pure alcohol)CommentsNoSex and Gender InformationValueDate RecordedSex Assigned at BirthNot on fileLegal ZkrXlvlvf64/26/2015 7:37 PM ESTGender Identity Not on fileSexual OrientationNot on file Last Filed Vital Signs Vital SignReadingTime TakenCommentsBlood Hnppsebb070/6001/ 2:44 PM EST Rqgkf4833/27/2022 2:44 PM XZEZquolwryzkt16.7 ??C (98.1 ??F)03/30/2021 5:10 PM ESTRespiratory Djim6414 5:10 PM ESTOxygen Fegsxheesf71%03/30/2021 5:10 PM ESTInhaled Oxygen Concentration--Gvsuhv82 kg (205 lb)09/04/2021 9:27 AM EDT Rwiicu893.9 cm (6')09/04/2021 9:27 AM EDTBody Mass Index27.8009/04/2021 9:27 AM EDT Plan of Treatment Not on file Insurance Advance Directives * Full Code (Latest Code Status on File) Date ActivatedDate InactivatedComments05/06/2020 4:42 PM05/08/2020 3:13 PM Care Teams Team MemberRelationshipSpecialtyStart DateEnd Date Robin Marquez MD [address] [place] [phone] PCP - GeneralFamily Medicine10/10/18
--- OUTSIDE RECORDS SUMMARY | 2025-03-26 18:58 | XMS_ITS | Encounter Summary ---
Author Organization [facility] Address [address] [place] [address] Care Team Providers Care Airplane Tester Name Role Phone Amanda Hewitt NUTRITION THERAPIST Primary Care Provider Encounter Details DateTypeDepartmentCare Team (Latest Contact Info)Ckzchduuipl65/08/2025Clinisync Result Encounter [facility] External Department Unsolicited Basim Martinez, DO [address] [facility] [address] [place], [place] [phone] Social History Tobacco UseTypesPacks/DayYears UsedDateSmoking Tobacco: FormerCigarettes0.53 Quit: 05/24/2024Smokeless Tobacco: NeverAlcohol UseStandard Drinks/WeekComments Not Currently0 (1 standard drink = 0.6 oz pure alcohol)caffeine: 1-2 cups per day teaPHQ-2AnswerDate RecordedPatient Health Questionnaire-2 Taewt026 Estimated Date of GnzqfqdyWccuprtaDly75/06/2026ased on Est. Date of ConceptionSex and Gender InformationValueDate RecordedSex Assigned at Owfrsh9501/19/2023 8:10 PM EDTLegal AaxYggwlx48/02/2023 9:50 PM EDTGender Identity Lqvica8501/19/2023 8:10 PM EDTSexual OrientationNot on fileTravel HistoryTravel StartTravel XjoImvbvbs78/22/202511/documented as of this encounter Plan of Treatment DateTypeDepartmentCare Team (Latest Contact Info)Eiknvrwahhy65/16/2025 10:00 AM ESTRoutine [facility] [address] [place] [phone] Basim Martinez, DO [address] [facility] [place] [address] 08/21/2025 9:30 AM EDTOffice Visit [facility] [address] [place] [address] Darleen Sinclair MD [address] [place] [address] documented as of this encounter Goals GoalPatient Goal TypeAssociated ProblemsRecent ProgressPatient-Stated?Author Reminders Care PlanOB RemindersNoOpen Scheduling, Backgrounddocumented as of this encounter Procedures Procedure NamePriorityDate/TimeAssociated DiagnosisCommentsUS OB BPP W NON-WMIAWW0003/25/2025 4:30 PM EST documented in this encounter Results * US OB BPP W NON-STRESS (03/25/2025 4:30 PM EST)Anatomical Region LateralityModalityOtherSpecimen (Source)Anatomical Location / Laterality Collection Method / VolumeCollection TimeReceived Time03/25/2025 4:30 PM EST Narrative 03/25/2025 4:33 PM EST [facility] ?[address] ? [place] [address] ? Ultrasound Report ? Signed ? Patient: MARIA EUGENIAGUZMAN Colt ?MR#: [id number] ?? : 1995 ?Acct:[id number] ?? Age/Sex: 30 / F ?ADM Date: 03/25/25 ?? Loc: US ? Attending Dr: Basim Martinez D.O. ? Ordering Physician: Basim Martinez D.O. ?? Date of Service: 03/25/25 ?? Procedure(s): US OB BPP w non-stress ?? Accession Number(s): [id number] ? cc: Basim Martinez D.O.; AMANDA HEWITT ? [facility] ? [address] ? [place] [address] ? Patient Name: ?? GUZMAN DEL CID ? MRN: [facility]:[id number] ? date: 1995 ?Sex: F ?? Assigned Patient Location: [facility]BC ?? Current Patient Location: ? Accession/Order Number: [id number] ?? Exam Date: 03/25/2025 ??14:05 ?Report Date: 03/25/2025 ??16:30 ? At the request of: ?? BASIM ??JUAN ??DO ? Procedure: ??US OB BPP w non-stress ? US OB BPP w non-stress ??03/25/2025 2:20 PM ? SIGNS AND SYMPTOMS: ?? Thyroid stimulating hormone deficiency ? PROTOCOL: Transabdominal sonographic imaging of the gravid uterus ? COMPARISON: 03/21/2025 ? FINDINGS: ? Estimated gestational age: 35 weeks and 6 days ? heart rate: 127 bpm ? Amniotic fluid index: 11.08 cm. ??The deepest vertical pocket measures 4.99 cm. ? Biophysical profile: ? breathing movements: 2/2 ? Gross body movements: 2/2 ? tone: 2/2 ? Amniotic fluid volume: 2/2 ? US/US OB BPP w non-stress ?? IMPRESSION: ? Biophysical profile score: 11/23 ? Impression dictated by: Zachary Simon M.D. ??03/25/2025 4:30 PM ? Dictation Location: [facility]-- ? Electronically authenticated by: [id number] ??Y ?? Date: 03/25/2025 ??16:30 ? Dictated By: ?Zachary Simon M.D. ? Signed By: ?03/25/25 1633 ? DD/ 1630 ? TD/TT: ? Household Refrigerator Mechanic: Procedure Note Radiology, Radiologist, - 03/26/[address] [address] Ultrasound Report Signed Patient: GUZMAN DEL CID [facility]#: [id number] : 1995Acct:[id number] Age/Sex: 30 / FADM Date: 03/25/25 Loc: US Attending Dr: Basim Martinez D.O. Ordering Physician: Basim Martinez D.O. Date of Service: 03/25/25 Procedure(s): US OB BPP w non-stress Accession Number(s): [id number] cc: Basim Martinez D.O.; AMANDA HEWITT [place] [address] Patient Name: GUZMAN DEL CID MRN: [facility]:[id number] date: 1995 Sex: F Assigned Patient Location: [facility] Current Patient Location: Accession/Order Number: [id number] Exam Date: 03/25/2025 14:05 Report Date: 03/25/2025 16:30 At the request of: BASIM MARTINEZ DO Procedure: US OB BPP w non-stress US OB BPP w non-stress 03/25/2025 2:20 PM SIGNS AND SYMPTOMS: Thyroid stimulating hormone deficiency PROTOCOL: Transabdominal sonographic imaging of the gravid uterus COMPARISON: 03/21/2025 FINDINGS: Estimated gestational age: 35 weeks and 6 days heart rate: 127 bpm Amniotic fluid index: 11.08 cm. The deepest vertical pocket measures 4.99cm. Biophysical profile: breathing movements: 2/2 Gross body movements: 2/2 tone: 2/2 Amniotic fluid volume: 2/2 US/US OB BPP w non-stress IMPRESSION: Biophysical profile score: 8/8 Impression dictated by: Zachary Simon M.D. 03/25/2025 4:30 PM Dictation Location: [place] [address] Electronically authenticated by: [id number] Y Date: 6:30 Dictated By: Zachary Simon M.D. Signed By:03/25/25 163 DD/ 29 TD/TT: Household Refrigerator Mechanic: Authorizing ProviderResult TypeResult StatusCorey uJan DOCLINISYNC IMAGINGFinal Result documented in this encounter Visit Diagnoses Not on filedocumented in this encounter Additional Health Concerns Active ProblemsNoted DateDiagnosed DateOB Fqymtdpub59/07/2025 documented as of this encounter Care Teams Team MemberRelationshipSpecialtyStart DateEnd Date Amanda Hewitt NP [address] [place] [address] PCP - GeneralFamily Pbjqiakv43/2/23documented as of this encounter
--- OUTSIDE RECORDS SUMMARY | 2025-03-26 18:58 | XMS_ITS | Encounter Summary ---
Author Organization [facility] Address [address] [place] [address] Care Team Providers Care Regional Clinical Director Name Role Phone Amanda Ford HVAC MECHANIC Primary Care Provider Encounter Details DateTypeDepartmentCare Team (Latest Contact Info)Yyayoucovrt77/05/2025Clinisync Result Encounter [facility] External Department Unsolicited Les Martinez, DO [address] [facility] [address] [place], [place] [phone] Social History Tobacco UseTypesPacks/DayYears UsedDateSmoking Tobacco: FormerCigarettes0.53 Quit: 05/24/2024Smokeless Tobacco: NeverAlcohol UseStandard Drinks/WeekComments Not Currently0 (1 standard drink = 0.6 oz pure alcohol)caffeine: 1-2 cups per day teaPHQ-2AnswerDate RecordedPatient Health Questionnaire-2 Fbydi887 Estimated Date of ExmfftcfNhtqclsgWhn09/06/2026ased on Est. Date of ConceptionSex and Gender InformationValueDate RecordedSex Assigned at Eodmkl7101/19/2023 8:10 PM EDTLegal JxyWhwhzk63/02/2023 9:50 PM EDTGender Identity Qolghn1201/19/2023 8:10 PM EDTSexual OrientationNot on fileTravel HistoryTravel StartTravel PkfYaufaef44/22/202511/documented as of this encounter Plan of Treatment DateTypeDepartmentCare Team (Latest Contact Info)Prxwvlqthne10/16/2025 10:00 AM ESTRoutine [facility] [address] [facility] [place] [address] Les Martinez DO [address] [facility] [place] [address] 08/21/2025 9:30 AM EDTOffice Visit [facility] [address] [place] [address] Darleen Sinclair MD [address] [place] [address] documented as of this encounter Goals GoalPatient Goal TypeAssociated ProblemsRecent ProgressPatient-Stated?Author Reminders Care PlanOB RemindersNoOpen Scheduling, Backgrounddocumented as of this encounter Procedures Procedure NamePriorityDate/TimeAssociated DiagnosisCommentsTBH UA (CLEAN/CATCH) TRAINING AND DEVELOPMENT OFFICER/MICRO IF IND.Eobhkiv6703/22/2025 8:50 PM EST documented in this encounter Results * (ABNORMAL) TBH UA (CLEAN/CATCH) TRAINING AND DEVELOPMENT OFFICER/MICRO IF IND. (03/22/2025 8:50 PM EST) ComponentValueRef RangeTest MethodAnalysis TimePerformed AtPathologist SignatureCOLOR URINELT. YELLOWYELLOWTBHCLARITY URINECLEARCLEARTBHSPECIFIC GRAVITY URINE<=1.005(A)1.005 - 1.025TBHPH URINE6.05.0 - 9.0TBHPROTEIN URINE NEGATIVENEG/TRACE mg/dLTBHGLUCOSE URINE UANEGATIVENEGATIVE mg/dLTBHBILIRUBIN URINENEGATIVENEGATIVETBHKETONES URINENEGATIVENEGATIVE mg/dLTBHBLOOD URINE NEGATIVENEGATIVETBHNITRITE URINENEGATIVENEGATIVETBHUROBILINOGEN URINE0.20.2 - 1.0 EU/dLTBHLEUKOCYTE ESTERASE URINENEGATIVENEGATIVETBHURINE MICROSCOPIC INDICATEDNOTBHSpecimen (Source)Anatomical Location / LateralityCollection Method / VolumeCollection TimeReceived Time03/22/2025 8:50 PM EST03/22/2025 9:11 PM EST Narrative [facility] - 03/22/2025 9:28 PM EST Authorizing ProviderResult TypeResult StatusCorey Juan DOCLINISYNCFinal Result Performing OrganizationAddressCity/State/ZIP CodePhone Number [facility] documented in this encounter Visit Diagnoses Not on filedocumented in this encounter Additional Health Concerns Active ProblemsNoted DateDiagnosed DateOB Rwdbbfnsh24/07/2025 documented as of this encounter Care Teams Team MemberRelationshipSpecialtyStart DateEnd Date Amanda Ford NP [address] [place] [address] PCP - GeneralFamily Sysxxyxx04/2/23documented as of this encounter
--- OUTSIDE RECORDS SUMMARY | 2025-03-26 18:59 | XMS_ITS | Encounter Summary ---
Author Organization [facility] Address [address] [place] [address] Care Team Providers Care Assistant Professor Of Dietetics Name Role Phone Amanda Hewitt DANCE COACH Primary Care Provider Encounter Details DateTypeDepartmentCare Team (Latest Contact Info)Kpcjrmwpkje39/01/2025Clinisync Result Encounter [facility] External Department Unsolicited Basim Martinez, DO [address] [facility] [address] [place], [place] [phone] Social History Tobacco UseTypesPacks/DayYears UsedDateSmoking Tobacco: FormerCigarettes0.53 Quit: 05/24/2024Smokeless Tobacco: NeverAlcohol UseStandard Drinks/WeekComments Not Currently0 (1 standard drink = 0.6 oz pure alcohol)caffeine: 1-2 cups per day teaPHQ-2AnswerDate RecordedPatient Health Questionnaire-2 Wcjab392 Estimated Date of OezauvthIukbjoruKru20/06/2026ased on Est. Date of ConceptionSex and Gender InformationValueDate RecordedSex Assigned at Nujsxi8501/19/2023 8:10 PM EDTLegal QizSzzcdw32/02/2023 9:50 PM EDTGender Identity Grxvgk2301/19/2023 8:10 PM EDTSexual OrientationNot on fileTravel HistoryTravel StartTravel RwjRtalpzl55/22/202511/documented as of this encounter Plan of Treatment DateTypeDepartmentCare Team (Latest Contact Info)Keaelhbxvzk96/16/2025 10:00 AM ESTRoutine [facility] [address] [facility] [place] [address] Basim Martinez, DO [address] [facility] [place] [address] 08/21/2025 9:30 AM EDTOffice Visit [facility] [address] [place] [address] Darleen Sinclair MD [address], [address] [place] [address] documented as of this encounter Goals GoalPatient Goal TypeAssociated ProblemsRecent ProgressPatient-Stated?Author Reminders Care PlanOB RemindersNoOpen Scheduling, Backgrounddocumented as of this encounter Procedures Procedure NamePriorityDate/TimeAssociated DiagnosisCommentsUS OB BPP W NON-YPLTTN1003/18/2025 4:09 PM EST documented in this encounter Results * US OB BPP W NON-STRESS (03/18/2025 4:09 PM EST)Anatomical Region LateralityModalityOtherSpecimen (Source)Anatomical Location / Laterality Collection Method / VolumeCollection TimeReceived Time03/18/2025 4:09 PM EST Narrative 03/18/2025 4:12 PM EST [facility] ?[address] ? [place] [address] ? Ultrasound Report ? Signed ? Patient: MARIA EUGENIAGUZMAN Colt ?MR#: [id number] ?? : 1995 ?Acct:[id number] ?? Age/Sex: 30 / F ?ADM Date: 03/18/25 ?? Loc: US ? Attending Dr: Basim Martinez D.O. ? Ordering Physician: Basim Martinez D.O. ?? Date of Service: 03/18/25 ?? Procedure(s): US OB BPP w non-stress ?? Accession Number(s): [id number] ? cc: Basim Martinez D.O.; AMANDA HEWITT ? [facility] ? [address] ? [place] [address] ? Patient Name: ?? GUZMAN DEL CID ? MRN: [facility]:[id number] ? date: 1995 ?Sex: F ?? Assigned Patient Location: ?? Current Patient Location: ? Accession/Order Number: [id number] ?? Exam Date: 03/18/2025 ??14:03 ?Report Date: 03/18/2025 ??16:09 ? At the request of: ?? BASIM ??JUAN ??DO ? Procedure: ??US OB BPP w non-stress ? Biophysical profile. ? Reason for exam: Thyroid stimulating hormone deficiency ? COMPARISON: 2025 ? TECHNIQUE: Transabdominal imaging of the gravid uterus was obtained. ? FINDINGS: The flash welder reports a BPP of 8 out of 8. ??STARR is normal at 18 ?? cm. ?? heart rate 141 bpm. ? US/US OB BPP w non-stress ?? IMPRESSION: BPP 8 out of 8. ? Impression dictated by: Sravan Dickinson Jr., DRenaeORenae ??03/18/2025 4:09 PM ? Dictation Location: [facility]-- ? Electronically authenticated by: [id number] ??Y ?? Date: 03/18/2025 ??16:09 ? Dictated By: ?Sravan Dickinson M.D. ? Signed By: ?03/18/25 1612 ? DD/ 1609 ? TD/TT: ? Inspector Brake Lining: Procedure Note Radiology, Radiologist, - 03/19/2025 [place] [address] Ultrasound Report Signed Patient: GUZMAN DEL CID EMR#: [id number] : 1995Acct:[id number] Age/Sex: 30 / FADM Date: 03/18/25 Loc: US Attending Dr: Basim Martinez D.O. Ordering Physician: Basim Martinez D.O. Date of Service: 03/18/25 Procedure(s): US OB BPP w non-stress Accession Number(s): [id number] cc: Basim Martinez D.O.; AMANDA HEWITT [facility] [address] [place], [place] [address] Patient Name: GUZMAN DEL CID MRN: [facility]:[id number] date: 1995 Sex: F Assigned Patient Location: Current Patient Location: Accession/Order Number: [id number] Exam Date: 03/18/2025 14:03 Report Date: 03/18/2025 16:09 At the request of: BASIM MARTINEZ DO Procedure: US OB BPP w non-stress Biophysical profile. Reason for exam: Thyroid stimulating hormone deficiency COMPARISON: 2025 TECHNIQUE: Transabdominal imaging of the gravid uterus was obtained. FINDINGS: The flash welder reports a BPP of 8 out of 8. STARR is normal at18 cm. heart rate 141 bpm. US/US OB BPP w non-stress IMPRESSION: BPP 8 out of 8. Impression dictated by: Sravan Dickinson Jr., D.O. 03/18/2025 4:09 PM Dictation Location: [place] [address] Electronically authenticated by: [id number] Y Date: 6:09 Dictated By: Sravan Dickinson M.D. Signed By:03/18/25 1612 DD/ 1609 TD/TT: Inspector Brake Lining: Authorizing ProviderResult TypeResult StatusCorey Juan DOCLINISYNC IMAGINGFinal Result documented in this encounter Visit Diagnoses Not on filedocumented in this encounter Additional Health Concerns Active ProblemsNoted DateDiagnosed DateOB Ealhimnqr70/07/2025 documented as of this encounter Care Teams Team MemberRelationshipSpecialtyStart DateEnd Date Amanda Hewitt NP [address] [facility] [address] [place] [phone] PCP - GeneralFamily Ntbmfwnj97/2/23documented as of this encounter
--- OUTSIDE RECORDS SUMMARY | 2025-03-26 18:59 | XMS_ITS | Patient Health Record ---
Author Organization The [facility] [place] Address [address] [place] [address] Care Team Providers Care Observation Assistant Name Role Phone Robin Marquez MD Primary Care Provider Unavail able Reason For Referral No Information Plan Of Treatment No Information
--- OUTSIDE RECORDS SUMMARY | 2025-03-26 18:59 | XMS_ITS | Clinical Summary ---
Author Organization [facility] Address [id number] [address] [place] [address] Care Team Providers Care Manager Line Name Role Phone No Pcp, No Pcp Primary Care Provider Unavailabl e Allergies Active AllergyReactionsCriticalityNoted DateCommentsNsaids (Non-Steroidal Anti- Inflammatory Drug)10/26/2024 Medications MedicationSigDispense QuantityRefillsLast FilledStart DateEnd DateStatus jy313-vtog-bbsdx acid ( 19) 29 mg iron- 1 [...] ProblemNoted DateDiagnosed DatePrevious gastric bypass affecting , /20/2025Pregnancy headache in second ouwhgnzln38/20/2025 Hypothyroidism affecting in second oydodrocx35/20/2025ipolar disease during in second uilemozjq78/20/2025Estimated Date of Delivery DbmsjpngDrs36/06/2026Based on Other Basis, IUI conception date 07/31/2024 Encounters DateTypeDepartmentCare ZkwrQtzltufizeb05/18/2025 11:12 AM EST - 03/05/2025 11:59 PM ESTHospital Encounter [facility] - [facility]ound [address] [place] [phone] Hypothyroidism affecting in second trimester; headache in second trimester; Previous gastric bypass affecting , antepartum; 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 ([facility]) Discharge Disposition: Home03/04/20256195Gsermf52/23/2025Orders Only [facility] 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 [facility] [place] [address] [facility] [address] [place] [address] Roslyn Griffin RN Hypothyroidism affecting in second trimester (Primary Dx); headache in second trimester; Previous gastric bypass affecting , antepartum; 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 ([facility])02/07/2025Travel 01/04/2025Orders Only Maternal- Medicine at [facility] [address] [facility] [place] [phone] Krystyna Dick RN Previous gastric bypass affecting , antepartum (Primary Dx); Hypothyroidism affecting in second trimester; 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 ([facility]); Obesity affecting in second trimester, unspecified obesity type 01/03/2025Telephone Maternal Medicine [place] [address] [facility] [address] [place] [address] Roslyn Griffin RN 01/03/2025Travelfrom Last 3 Months Family History Medical HistoryRelationNameCommentsDiabetesFatherHypertensionFatherThyroid diseaseFatherDiabetesMaternal GrandfatherDepressionMotherObesityMotherSkin cancerMotherThyroid diseaseMotherRelationNameStatusCommentsFatherMaternal GrandfatherMotherPaternal Grandfather Social History Tobacco UseTypesPacks/DayYears UsedDateSmoking Tobacco: FormerCigarettesStarted: 2023Smokeless Tobacco: Never Tobacco Cessation:Counseling Given: Not Answered Alcohol UseStandard Drinks/WeekCommentsNot Currently0 (1 standard drink = 0.6 oz pure alcohol)ChildcareAnswerDate UxeqdhaeIzmdlpxjsQhpvrep38/02/2021mployment AnswerDate VjimpgabYjvroglajmNntsjav59/02/2021Hunger ScreeningAnswerDate RecordedWithin the past 12 months we worried whether our food would run out before we got money to buy more.Never True12/05/2024Within the past 12 months the food we bought just didn't last and we didn't have money to get more.Never True12/05/2024Purpose - LifeAnswerDate RecordedPurpose and direction in life Oqsapdv97/02/2021Estimated Date of RgldzovdBoazndnsFvd89/06/2026Based on Other Basis, IUI conception date 07/31/2024Sex and Gender InformationValueDate RecordedSex Assigned at BirthNot on fileLegal PecVeshds46/06/2015 12:10 PM EDT Gender IdentityNot on fileSexual OrientationNot on file Last Filed Vital Signs Vital SignReadingTime TakenCommentsBlood Bsguhwtd32/6208 12:46 PM EDT Aaxcv233612/05/2024 12:46 PM EDTTemperature--Respiratory Rate--Oxygen Saturation-- Inhaled Oxygen Concentration--Vfpdeg787.6 kg (257 lb)12/05/2024 12:46 PM EDT Nzzjeh600.3 cm (5' 11 )12/05/2024 12:46 PM EDTBody Mass Index35.8412/05/2024 12:46 PM EDT Plan of Treatment Health MaintenanceDue DateLast DoneCommentsDepression Kmitxrxnx29/17/2007dult BMI Follow Up Plan2013Pap Smear2016COVID-19 Vaccine ( season)505/07/2020, 07/22/2020Influenza Chzpgro73 Adult BMI Vlxkanrns32Tobacco Kbyxnfmgc86 DTaP,Tdap and Td Vaccines (9 - Td or Tdap)/02/2025, 12/25/2022, 03/03/2009, Additional history existsRSV ( or age 60+ yrs)Completed 02/26/2025 Medical Devices Not on file Procedures Procedure NamePriorityDate/TimeAssociated DiagnosisCommentsUS [facility] OB FOLLOW-UP, 1 VPBIFSajiorf85/18/2025 12:04 PM EST Hypothyroidism affecting in second trimester headache in second trimester Previous gastric bypass affecting , antepartum 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 ([facility]) [facility] OB FOLLOW-UP, 1 MXFRQGxvmief79/23/2025 10:49 AM EDT Previous gastric bypass affecting , antepartum Hypothyroidism affecting in second trimester 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 ([facility]) Obesity affecting in second trimester, unspecified obesity type [facility] OB FOLLOW-UP, 1 ENOKWXldgdsp06/18/2025 3:09 PM EDT Previous gastric bypass affecting , antepartum Hypothyroidism affecting in second trimester 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 ([facility]) Obesity affecting in second trimester, unspecified obesity type Encounter for supervision of resulting from assisted reproductive technology, antepartum from Last 3 Months Results * [facility] OB FOLLOW-UP, 1 FETUS (03/05/2025 12:04 PM EST) Only the most recent of3 resultswithin the time period is included. Anatomical RegionLateralityModalityOB-GYNUltrasoundSpecimen (Source)Anatomical Location / LateralityCollection Method / VolumeCollection TimeReceived Time 03/05/2025 11:31 AM EST Narrative 03/05/2025 3:47 PM EST NAME: ??MARIA EUGENIA HINDS : 1995 SEX: F Accession Number: [id number] ORDERING PHYSICIAN: BASIM BIRMINGHAM REFERRING PHYSICIAN: BASIM BIRMINGHAM Coding Procedures ? 34026: Ultrasound, uterus, real time with image documentation, follow up,transabdominal ? approach per fetus Indication resulting from assisted reproductive technology- IUI, History of Gastric sleeve, Obesity in . History OB History ? 1. Para 0 ? [id number] Current Cell free DNA ?low risk analysis [...] (oz) ? 11 oz EFW by: ?Hadlock (YDF-SU-QE-FL) Extended Tibia ??54.8 mm 32w 2d 47% [employer] Administrator ? 4.4 mm Head / Face / [...] MVP measures 7.3 cm. Recommendations Please see [facility] recommendations from prior clinical and/or ultrasound report documentation. Subsequent follow up or other follow up as clinically determined by primary OB provider unless otherwise specified by [facility]. Results forwarded to ordering provider so they can follow up with the patient as necessary. Procedure Note Crystal Rahman MD - 03/05/2025 NAME: MARIA EUGENIA HINDS : 1995 SEX: F Accession Number: [id number] ORDERING PHYSICIAN: BASIM BIRMINGHAM REFERRING PHYSICIAN: BASIM BIRMINGHAM Coding Procedures 47527: Ultrasound, uterus, real time with image documentation, follow up, transabdominal approach per fetus Indication resulting from assisted reproductive technology- IUI, History of Gastric sleeve, Obesity in . History OB History 1. Para 0 [id number] Current Cell free DNA low risk analysis [...] EFW (oz) 11 oz EFW by: Hadlock (PVP-AI-CV-FL) Extended Tibia 54.8 mm 32w 2d 47% [employer] Administrator 4.4 mm Head / Face / Neck [...] necessary. Authorizing ProviderResult TypeResult StatusCorey R Juan [facility] Final Result from Last 3 Months Insurance MemberSubscriberPlan / Payer (Effective 2022-Present)Name:Jaz Howell Relation to Subscriber:SelfName:Jaz Howell Payer ID:Not on file Group ID:[id number] Type:Not on file Address: [facility] [id number] [place] [id number] Care Teams Team MemberRelationshipSpecialtyStart DateEnd Date No Pcp, No Pcp LUKE Owens [address] [facility]
--- OUTSIDE RECORDS SUMMARY | 2025-03-26 18:59 | XMS_ITS | Encounter Summary ---
Author Organization [facility] Address [address] [place] [address] Care Team Providers Care Remelt Furnace Expediter Name Role Phone Amanda Ford JUNIOR SYSTEMS ANALYST Primary Care Provider Encounter Details DateTypeDepartmentCare Team (Latest Contact Info)Vyyuhjjotxa39/02/2025Bamboo flowsheet [facility] [address] [place] [address] Les Martinez DO [address] [facility] [address] [place], [facility] Social History Tobacco UseTypesPacks/DayYears UsedDateSmoking Tobacco: FormerCigarettes0.53 Quit: 05/24/2024Smokeless Tobacco: NeverAlcohol UseStandard Drinks/WeekComments Not Currently0 (1 standard drink = 0.6 oz pure alcohol)caffeine: 1-2 cups per day teaPHQ-2AnswerDate RecordedPatient Health Questionnaire-2 Kksik869 Estimated Date of LiecztfcXposkotpCay50/06/2026Based on Est. Date of ConceptionSex and Gender InformationValueDate RecordedSex Assigned at Iwhvcr7701/19/2023 8:10 PM EDTLegal FjkNvnvhl33/02/2023 9:50 PM EDTGender Identity Fcziek9401/19/2023 8:10 PM EDTSexual OrientationNot on fileTravel HistoryTravel StartTravel ZryGcqwnun81/22/25523905/16/2024documented as of this encounter Plan of Treatment DateTypeDepartmentCare Team (Latest Contact Info)Hajahkunnvh35/16/2025 10:00 AM ESTRoutine [facility] [address] [place] [address] Les Martinez DO [address] [facility] [place] [address] 08/21/2025 9:30 AM EDTOffice Visit [facility] [place] [facility] [address] [place] [phone] Darleen Sinclair MD [address] [place] [address] documented as of this encounter Goals GoalPatient Goal TypeAssociated ProblemsRecent ProgressPatient-Stated?Author Reminders Care PlanOB RemindersNoOpen Scheduling, Backgrounddocumented as of this encounter Visit Diagnoses Not on filedocumented in this encounter Additional Health Concerns Active ProblemsNoted DateDiagnosed DateOB Jsnwnsrgt03/07/2025 documented as of this encounter Care Teams Team MemberRelationshipSpecialtyStart DateEnd Date Amanda Ford NP [address] [facility] [place] [address] PCP - GeneralFamily Lmoeakzn64/2/23documented as of this encounter
--- OUTSIDE RECORDS SUMMARY | 2025-03-26 18:59 | XMS_ITS | Encounter Summary ---
Author Organization [facility] Address [address] [place] [address] Care Team Providers Care Ultrasound Tech Name Role Phone Amanda Ford CORPORATE TREASURY ANALYST Primary Care Provider Encounter Details DateTypeDepartmentCare Team (Latest Contact Info)Xjscovkyndj99/03/2025Telephone [facility] [address] [place] [address] [place] [address] Kerrie Babcock MA Social History Tobacco UseTypesPacks/DayYears UsedDateSmoking Tobacco: FormerCigarettes0.53 Quit: 05/24/2024Smokeless Tobacco: NeverAlcohol UseStandard Drinks/WeekComments Not Currently0 (1 standard drink = 0.6 oz pure alcohol)caffeine: 1-2 cups per day teaPHQ-2AnswerDate RecordedPatient Health Questionnaire-2 Dlsea244 Estimated Date of JuzfftbhOfvgnaayGmh97/06/2026ased on Est. Date of ConceptionSex and Gender InformationValueDate RecordedSex Assigned at Qicwci4201/19/2023 8:10 PM EDTLegal OyrOnwpaw80/02/2023 9:50 PM EDTGender Identity Uuizpk0601/19/2023 8:10 PM EDTSexual OrientationNot on fileTravel HistoryTravel StartTravel IupTmubozu22/22/530522/documented as of this encounter Miscellaneous Notes * Telephone Encounter - Kerrie Babcock MA - 03/20/2025 10:52 AM EST Pt called in requesting albuterol inhaler for possible bronchitis. Ok per Dr. Martinez. Pharmacy confirmed, medication sent. documented in this encounter Plan of Treatment DateTypeDepartmentCare Team (Latest Contact Info)Btylvvpjbjt14/16/2025 10:00 AM ESTRoutine [facility] [address] [place] [address] Les Martinez DO [address] [facility] [place] [address] 08/21/2025 9:30 AM EDTOffice Visit [facility] [place] [facility] [address] [place] [address] Darleen Sinclair MD [address] [place] [address] documented as of this encounter Goals GoalPatient Goal TypeAssociated ProblemsRecent ProgressPatient-Stated?Author Reminders Care PlanOB RemindersNoOpen Scheduling, Backgrounddocumented as of this encounter Visit Diagnoses Diagnosis Wheezing documented in this encounter Additional Health Concerns Active ProblemsNoted DateDiagnosed DateOB Euywtqrcs58/07/2025 documented as of this encounter Care Teams Team MemberRelationshipSpecialtyStart DateEnd Date Amanda Ford NP [address] [facility] [place] [address] PCP - GeneralFamily Rhwyvsby47/2/23documented as of this encounter
--- OUTSIDE RECORDS SUMMARY | 2025-03-26 18:59 | XMS_ITS | Clinical Summary ---
Author Organization [facility] Address [address] [place] [address] Phone Care Team Providers Care Herbicide Sprayer Name Role Phone Unavailable Primary Care Provider Unavailabl e Social History Tobacco UseTypesPacks/DayYears UsedDateSmoking Tobacco: Never Assessed CommentsUnknownSex and Gender InformationValueDate RecordedSex Assigned at Not on fileLegal ZnwHhlrem52/26/2024 8:23 AM EDTGender IdentityNot on fileSexual OrientationNot on file Plan of Treatment Health MaintenanceDue DateLast DoneCommentsHIV Dczzjtedy1995Lipid Panel 1995TSH Level1995MMR Vaccines (1 of 1 - Standard series)1996 Hepatitis C Xkvryzasd03/17/2013Hepatitis B Vaccines (1 of 3 - 19+ 3-dose series) 2014HPV/Wlkruy2503/04/2016HPV Vaccines (1 - 3-dose standard series) 2022Influenza Vaccine (#1)5COVID-19 Vaccine (3 - 2024- season) 505/07/2020, 07/22/2020Yearly Adult Asdxidwq80/07/2023 Cervical Cancer Fqtqrxogc19/04/2027Pap Smear/TaP/Tdap/Td Vaccines (2 - Td or Tdap)/12/2022Zoster [...]
--- OUTSIDE RECORDS SUMMARY | 2025-03-26 19:00 | XMS_ITS | Encounter Summary ---
Author Organization [facility] Address [address] [place] [address] Care Team Providers Care Principal Military Analyst Name Role Phone Amanda Ford BRAKE RELINER Primary Care Provider Encounter Details DateTypeDepartmentCare Team (Latest Contact Info)Mfhwkqyhscb45/25/2025Travel Social History Tobacco UseTypesPacks/DayYears UsedDateSmoking Tobacco: FormerCigarettes0.53 Quit: 05/24/2024Smokeless Tobacco: NeverAlcohol UseStandard Drinks/WeekComments Not Currently0 (1 standard drink = 0.6 oz pure alcohol)caffeine: 1-2 cups per day teaPHQ-2AnswerDate RecordedPatient Health Questionnaire-2 Wesct331 Estimated Date of MpwklzecTtiipcfvIbw21/06/2026ased on Est. Date of ConceptionSex and Gender InformationValueDate RecordedSex Assigned at Nzkwjr5901/19/2023 8:10 PM EDTLegal HkcTcbxvp26/02/2023 9:50 PM EDTGender Identity Scxozv2701/19/2023 8:10 PM EDTSexual OrientationNot on fileTravel HistoryTravel StartTravel XkrTbfuyac61/22/897260/documented as of this encounter Plan of Treatment DateTypeDepartmentCare Team (Latest Contact Info)Dympmgqhiqe28/16/2025 10:00 AM ESTRoutine [facility] [address] [place] [address] [place] [address] Les Martinez, DO [address] [facility] [place] [address] [place] [address] 08/21/2025 9:30 AM EDTOffice Visit [facility] [place] [facility] [address] [place] [address] Darleen Sinclair MD [address] [place] [address] documented as of this encounter Goals GoalPatient Goal TypeAssociated ProblemsRecent ProgressPatient-Stated?Author Reminders Care PlanOB RemindersNoOpen Scheduling, Backgrounddocumented as of this encounter Visit Diagnoses Not on filedocumented in this encounter Additional Health Concerns Active ProblemsNoted DateDiagnosed DateOB Dkwmyzynt99/07/2025 documented as of this encounter Care Teams Team MemberRelationshipSpecialtyStart DateEnd Date Amanda Ford NP [facility] [facility] [place] [address] [address] [place] [address] PCP - GeneralFamily Teifqsrw55/2/23documented as of this encounter
--- OUTSIDE RECORDS SUMMARY | 2025-03-26 19:00 | XMS_ITS | CCD ---
Author Organization [facility] Care Team Providers Care Licensed Funeral Director Name Role Phone Mariam Appiah Primary Care [...] [place] Emergency Provider MARYSOL Jett Emergency Provider [phone] MD Lashonda Farhad Admit Provider MD Farhad Gallego Attending Provider [phone] MELY Ford Attending Provider SHARRON Jefferson Attending Provider Petr Lay Unavailable Romeo Santana Unavailable MELY Ford Primary Care Provider DO Romeo Santana Attending Provider Daxa Ford NPnifer Primary Care Provider Unavailable [employer] RESEARCH METHODOLOGIST, Amanda Primary Care Provider Romeo Santana DO Attending Provider [employer] SOLDERER ASSEMBLY REPAIR, Amanda A Primary Care Provider Unavailable Primary Care Provider Unavailabl e DAVID, MELODIE G Referring Unavailable Unavailable Primary Care Provider Unavailabl e NOLA ENRIQUEZ Attending Unavailable [employer]acher SOLDERER ASSEMBLY REPAIR, Amanda A Primary Care Provider DAVID, MELODIE [...] Unavailable JUAN, LES R Attending Unavailable Roh[employer]acher RESEARCH METHODOLOGIST, Amanda Primary Care Provider Kassidy Arriaza DO Emergency Provider No Pcp, No Pcp Primary Care Provider Unavailabl e Chris Dickerson DO Attending Provider Les Martinez DO Attending Provider Elizabeth Tom Attending Provider [phone] Eduardo Cruz DO Attending Provider [phone] JUAN, LES R Referring Unavailable NO PCP, [...] of OnsetReaction(s) Facility (20 sources)Non-steroidal anti-inflammatory agentDrug allergyUnkNewport Hospital [employer] Other (20 sources)Non-steroidal anti-inflammatory agent; Translations: [NSAIDs]Drug Ocrxjrq23-59-1431ZmfcvbfENSX [facility] (1 source)ALLERGIES NOT ON FILE; Translations: [ALLERGIES NOT ON FILE]Propensity to adverse reactions (disorder)[facility] (6 sources)NSAIDs; Translations: [NSAIDS (NON-STEROIDAL ANTI-INFLAMMATORY DRUG)] Propensity to adverse reactions to cdlz12-50-4550[facility] (1 source)NSAIDsDrug allergy (disorder)39-31-3529FqrduytxmCl[facility]ont [facility] Medications Current Medications MedicationDrug Class(es)DatesSig (Normalized)Sig (Original)acetaminophen 500 mg oral tablet (20 sources)Start: 46-31-8996aekb 1 tablet by mouth every eight hours as needed acetaminophen (TYLENOL) 500 mg tablet Take 500 mg by mouth every 8 hours as needed for pain. 12/06/2023 ActiveStart: 94-81-3265yzgw 1 tablet by mouth every six hours as needed for painStart: 11-28-2023 End: 27-36-8171yucidkbwgziqt (Tylenol Extra Strength) Discontinued 1000 MG PO EVERY 8-10 HOURS as needed for pain November 28, 2023 12:00am January 17, 2024 12:03pmacetaminophen 500 mg / diphenhydrAMINE hydrochloride 25 mg oral tablet (4 sources)Histamine-1 Receptor AntagonistStart: 67-01-2322iwzm 2 tablets by mouth once daily at [...] oral tablet (2 sources)Opioid AgonistStart: 05-07-2020 End: 94-56-3178ruzz 1 tablet by mouth every six hours [...] pain 28 tablet 0 05/07/2020 05/14/2020 ActiveStart: 56-54-4190vzuOWJKCZ-acetaminophen (PERCOCET) 5-325 MG per tablet 1 tablet albuterol 0.833 mg/ml / ipratropium bromide 0.167 mg/ml inhalant solution (1 source)Anticholinergic, beta2-Adrenergic AgonistStart: 23-68-8051vxxcjjqkafb- albuterol (DUONEB) nebulizer solution 1 ampulebenztropine mesylate 1 mg oral tablet (4 sources)Anticholinergic, AntihistamineStart: 89-54-8105shfmfhgcsge 1 mg Tab Refills(s) 0 Start Date: 01/30/20 Status: Orderedcalcium chloride 0.0014 meq/ml / potassium chloride 0.004 meq/ml / sodium chloride 0.103 meq/ml / sodium lactate 0.028 meq/ml injectable solution (2 sources)Start: 05-06-2020 End: 64-91-6197asvkcqcp ringers infusiondocusate sodium 100 mg oral capsule (20 sources)Start: 04-16-2024 End: 25-32-6999ueoy 1 capsule by mouth twice daily as needed for constipation Docusate Sodium (Stool Softener) 100 mg capsule Active 0 .ROUTE .COMPLEX April 26, 2024 9:52am TAKE 1 CAPSULE BY MOUTH TWICE DAILY NEEDED FOR CONSTIPATION Complies with drug therapyStart: 04-16-2024 End: 04-42-1051lltg 1 capsule by mouth twice daily as needed for constipation Docusate Sodium (Stool Softener) 100 mg capsule Discontinued 0 .ROUTE .COMPLEX April 16, 2024 8:58am April 26, 2024 8:57am TAKE 1 CAPSULE BY MOUTH TWICE DAILY NEEDED FOR CONSTIPATIONStart: 06-17-2022 End: 32-54-6193jqzsrdbl sodium (Colace) 100 MG capsule 1 (one) time each day at the same time 06/17/2022 ActiveStart: 06-11-2022 End: 89-45-8025sgpb 1 capsule by mouth twice daily as [...] prefilled syringe (1 source)Low Molecular Weight HeparinStart: 94-68-5985ihuksvpico (LOVENOX) 60 MG/0.6ML injection Inject 0.6 mLs into the skin 2 times daily 28 Syringe 0 0 05/07/2020 Active2 ml famotidine 10 mg/ml injection (1 source)Histamine-2 Receptor AntagonistStart: 74-39-4297bzpxjxakhi (PEPCID) injection 20 mg1 ml heparin sodium, porcine 5000 unt/ml prefilled syringe (2 sources)Unfractionated Heparin, Anti-coagulantStart: 05-06-2020 End: 22-21-2235lljqfcf (porcine) injection 5,000 Units1 ml HYDROmorphone hydrochloride 1 mg/ml cartridge (3 sources)Opioid AgonistStart: 27-16-4958FPZCWshleshun (DILAUDID) injection 1 mgStart: 05-06-2020 End: 61-40-6325GLHTLlbqdrdxz (DILAUDID) 1 MG/ML injectionStart: 05-06-2020 End: 43-77-1418DQHQIsrmsdqfe (DILAUDID) injection 0.5 mghydrOXYzine hydrochloride 50 mg oral tablet (4 sources)AntihistamineStart: 81-89-3329yavx 1-2 tablets by mouth four times dailyhydrOXYzine hydrochloride 50 mg oral tablet See Instructions, 1-2 tab(s) Oral QID, # 60 tab(s), Refills(s) 2, Pharmacy: [id number] Start Date: 10/09/18 Status: OrderedlamoTRIgine 200 mg oral tablet (20 sources)Mood Stabilizer, Anti-epileptic AgentStart: 74-94-0810Ivblbiqqqhj Active MG TABLET April 10, 2022 12:00amStart: 49-55-1808ujjylrispor 200 mg Tab 300 mg = 1.5 tab(s), Oral, Daily, # 45 tab(s), Refills(s) 5, Pharmacy: [id number], 182, cm, 12/06/19 12:03:00 EDT, Height/Length Dosing, 200.7, kg, 11/28/19 9:08:00 EDT, Weight Dosing Start Date: 01/30/20 Status: OrderedStart: 10-04-2018 End: 83-55-2170ephj 1 tablet by mouth once daily at bedtimeLamotrigine 200 mg tablet Discontinued 200 MG PO Daily at bedtime October 08, 2019 12:00am August 01, 2021 2:19pmLaMICtal 200 MG tablet 1.5 tabs Activelevothyroxine sodium 0.05 mg oral tablet (20 sources)l-ThyroxineStart: 02-24-2024 End: 12-05-6113numy 1 tablet by mouth before mealtimelevothyroxine (Synthroid, Levoxyl) 50 MCG tablet Indications: Nontoxic goiter Take 1 tablet (50 mcg) by mouth in the morning. Take before meals. 90 tablet 3 08/22/2024 08/17/2025 ActiveStart: 10-13-2023 End: 18-64-1121wrsp 1 capsule by mouth once daily in the morningLevothyroxine 50 mcg capsule Discontinued 50 MCG PO Every morning October 13, 2023 12:00am April 26, 2024 9:56amStart: 10-08-2019 End: 32-18-6157tagt 1 tablet by mouth every other dayLevothyroxine 175 mcg Tablet Discontinued 175 MCG PO every other day October 08, 2019 12:00am July 172021 2:19pm 1 tablet on odd daysStart: 10-08-2019 End: 71-82-4377azni 1.5 tablets by mouth every other dayLevothyroxine 175 mcg Tablet Discontinued 262 MCG PO every other day October 08, 2019 12:00am July 172021 2:19pm 1.5 tabs every other day on even daysStart: 10-08-2019 End: 52-86-6563kdrl 1.5 tablets by mouth every other dayLevothyroxine Discontinued 262 MCG PO every other day October 08, 2019 12:00am August 01, 2021 2:19pm 1.5 tabs every other day on even daysStart: 92-53-0957gcqx 1 tablet by mouth once dailylevothyroxine 175 mcg (0.175 mg) Tab 175 microgram = 1 tab(s), Oral, Daily, # 30 tab(s), Refills(s)0 Start Date: 09/03/18 Status: Ordered lidocaine 0.05 mg/mg medicated patch (20 sources)Antiarrhythmic, Amide Local AnestheticStart: 02-24-2024 End: 75-00-5047nnhdk 1 dose transdermal route once dailyLidocaine 5 % adhesive patch,medicated Active 0 .ROUTE .COMPLEX April 26, 2024 9:53am APPLY 1 PATCH TOPICALLY ONCE DAILY. REMOVE AFTER 12 HOURS Complies with drug therapy Start: 02-24-2024 End: 17-64-2636telim 1 dose topically once dailyLidocaine 5 % adhesive patch,medicated Discontinued 1 PATCH TOPICAL Daily February 24, 2024 1:00am February 24, 2024 9:54am leave on most painful area for up to 12 hrsStart: 10-24-2023 End: 66-38-3579uwupd 1 dose transdermal route once dailyLidocaine 5 % adhesive patch,medicated Discontinued 0 .ROUTE .COMPLEX October 24, 2023 8:47am January 17, 2024 12:04pm APPLY 1 PATCH TOPICALLY ONCE DAILY. REMOVE AFTER 12 HOURS Start: 06-03-2023 End: 30-54-3246hlxow 1 dose topically once daily as neededLidocaine 5 % adhesive patch,medicated Discontinued 1 PATCH TOPICAL Daily as needed June 03, 2023 1:00am October 24, 2023 8:48am REMOVE AFTER 12 HOURSStart: 54-02-6293Aftswncfk 5 % 1 patch remove after 12 hours Externally Once a day for 30 day(s) PRN Jan, ActiveLidocaine 5 % APPLY 1 PATCH TOPICALLY ONCE DAILY. REMOVE AFTER 12 HOURS. for 30 Activelithium carbonate 450 mg extended release oral tablet (8 sources)Start: 01-43-5929xoda 1 tablet by mouth once daily in [...] oxide 400 mg oral tablet (5 sources)Start: 32-36-2319zoog 1 tablet by mouth once in the morning, then take 1 tablet by mouth at bedtimemagnesium oxide (MAGOX) 400 mg tablet Indications: headache in second trimester Take 1 tablet (400 mg total) by mouth in the morning and 1 tablet (400 mg total) before bedtime. 120 tablet 1 12/05/2024 Active2 ml ondansetron 2 mg/ml injection (1 source)Serotonin-3 Receptor AntagonistStart: 21-47-0111vetcelquhti (ZOFRAN) injection 4 mgpantoprazole 40 mg extended release oral tablet (4 sources)Proton Pump InhibitorStart: 43-20-9707nmcn 1 tablet by mouth once dailypantoprazole 40 mg Oral EC Tab 40 mg = 1 tab(s), Oral, Daily, # 30 tab(s), Refills(s) 0 Start Date:09/03/18 Status: OrderedPNV Combo No.47-Iron-FA #1-DHA (PNV-DHA) 27 mg iron-1 mg -300 mg (5 sources)Start: 55-34-3058takt 1 capsule by mouth once dailyPNV Combo No.47-Iron-FA #1-DHA (PNV-DHA) 27 mg iron-1 mg -300 mg Take 1 capsule by mouth once daily. 08/20/2024 Activepolysaccharide iron complex 391 mg oral capsule (20 sources)Start: 33-88-1743itdx 1 capsule by mouth twice daily at bedtimeProFe 391.3 (180 Fe) MG capsule Indications: Other iron deficiency anemia TAKE 1 CAPSULE BY MOUTH TWICE DAILY IN THE MORNING AND BEFORE BEDTIME 60 capsule 3 11/06/2024 ActiveStart: 12-07-2023 End: 00-99-7776fhhm 1 capsule by mouth once dailyPolysaccharide Iron Complex (Pro Fe) 180 mg iron capsule Discontinued 180 MG PO Daily December 07, 2023 12:00am April 23, 2024 3:52pmtake 2 capsules by mouth twice daily Polysaccharide Iron Complex (PRO FE) 180 mg iron cap Take 2 capsules by mouth two times a day. Activeprenatal ip407-nzsb-zhrxx acid ( 19) 29 mg iron- 1 mg tablet,chewable (7 sources) fl562-meod-mtffh acid ( 19) 29 mg iron- 1 mg tablet,chewable Chew 1 tablet and swallow in the morning. Activepromethazine hydrochloride 25 mg oral tablet (8 sources)PhenothiazineStart: 42-13-0573vwwb 1 tablet by mouth every six hours as needed for nauseapromethazine (PHENERGAN) 25 MG tablet Take 1 tablet by mouth every 6 hours as needed for Nausea 30 tablet 0 05/07/2020 ActiveStart: 05-06-2020 End: 75-24-5812qpby 1 tablet by mouth four times daily as needed for nausea promethazine (PHENERGAN) 25 MG tablet Take 1 tablet by mouth 4 times daily as needed for Nausea 20 tablet 0 05/07/2020 05/14/2020 ActiveStart: 05-06-2020 promethazine (PHENERGAN) injection 12.5 mgStart: 03-28-2019 End: 60-23-0795fvgy 1 tablet by mouth every four hours as needed for nausea and vomitingpromethazine (PHENERGAN) 25 MG tablet TAKE 1 TABLET BY MOUTH EVERY 4 HOURS NEEDED FOR NAUSEA ANDVOMITING 0 03/28/2019 05/07/2020 Discontinued (REORDER)QUEtiapine 25 mg oral tablet (20 sources)Atypical AntipsychoticStart: 68-01-4344qexj 1 tablet by mouth at bedtimeQuetiapine 25 mg tablet Active 25 MG PO Bedtime April 10, 2022 1:00am Complies with drug therapyStart: 05-67-5819Nhcioygsyc Active MG TABLET April 10, 2022 12:00amStart: 28-12-7492jwzo 2 tablets by mouth at bedtime quetiapine [...] Take 50 mg by mouth nightly 0 Gxrfmy86 hr scopolamine 0.0139 mg/hr transdermal system (2 sources)AnticholinergicStart: 84-20-7591uvrvsbxubyg (TRANSDERM-SCOP) transdermal patch 1 patchsertraline 25 mg oral tablet (20 sources)Serotonin Reuptake InhibitorStart: 36-56-9019dktz 1 tablet by mouth once dailysertraline (Zoloft) 25 MG tablet Take 25 mg by mouth 1 (one) time each day at the same time 09/25/2024 Active3 ml sodium chloride 9 mg/ml injection (2 sources)Start: 34-66-8075uimepq chloride flush 0.9 % injection 10 mLSprintec oral tablet (4 sources)Start: 05-73-9005Mgvoklie oral tablet 1 tab(s), Oral, Daily, 28 tab(s), Refill(s) 0 Start Date: 05/25/19 Status: Orderedsulfamethoxazole 400 mg / trimethoprim 80 mg oral tablet (7 sources)Dihydrofolate Reductase Inhibitor Antibacterial, Sulfonamide Antimicrobialtake 1 tablet by mouth every twenty-four hoursBactrim 400-80 MG 1 tablet Orally Once a day Activeziprasidone 80 mg oral capsule (20 sources)Atypical AntipsychoticStart: 78-10-7263bbfc 1 capsule by mouth twice daily at mealtimeziprasidone 80 mg Cap 80 mg = 1 cap(s), Oral, BID, with food, # 60 cap(s), Refills(s) 2, Pharmacy: [id number], 182, cm, 12/06/19 12:03:00 EDT, Height/Length Dosing, 200.7, kg, 11/28/19 9:08:00 EDT, Weight Dosing Start Date: 03/12/20 Status: OrderedStart: 10-08-2019 End: 55-43-7191qtju 1 capsule by mouth twice dailyZiprasidone Hcl [...] oral tablet (20 sources)Opioid AgonistStart: 08-01-2021 End: 41-94-0152lgfl 1 tablet by mouth every eight hours as needed for pain Hydrocodone-Acetaminophen 5-325 mg tablet Discontinued 1 TAB PO Q8H as needed for pain 7 2 August 01, 2021 April 10, 2022 7:18pmALPRAZolam 0.5 mg oral tablet (20 sources)BenzodiazepineStart: 06-17-2022 End: 93-02-1746smdp 1 tablet by mouth twice daily as needed for anxiety Alprazolam (Xanax) 0.5 mg tablet Discontinued 0.5 MG PO Twice daily as needed for Anxiety June 03, 2023 9:03am December 02, 2024 11:33pmStart: 06-10-2022 End: 03-59-5411eove 1 tablet by mouth once daily as needed for anxietyAlprazolam (Xanax) 0.5 mg Tablet Discontinued 0.5 MG PO Daily as needed for Anxiety June 10, 2022 1:00am June 03, 2023 9:04amStart: 30-15-3615lapr 1-2 tablets by mouth every 30 days at bedtime as needed for anxietyalprazolam 0.5 mg Tab 1-2 tabs, Oral, Bedtime, PRN for anxiety, 30 day supply; DX: F41, anxiety, # 60 tab(s), Refills(s) 1, Pharmacy: [id number], 182, cm, 12/06/19 12:03:00 EDT, Height/Length Dosing, 200.7, kg, 11/28/19 9:08:00 EDT, Weight Dosing Start Date: 01/30/20 Status: OrderedStart: 10-08-2019 End: 80-00-2370nqnz 1 tablet by mouth three times daily as needed for anxiety Alprazolam (Xanax) 0.5 mg Tablet Discontinued 0.5 MG PO Three times daily as needed for Anxiety October 08, 2019 12:00am April 10, 2022 7:18pmatomoxetine 40 mg oral capsule (11 sources)Norepinephrine Reuptake InhibitorStart: 01-25-2022 End: 30-13-3018Zmxbdrryc 40 MG capsule 1 (one) time each day at the same time. 01/25/2022 10/22/2024 Evczfpprfnzi90 ml bupivacaine hydrochloride 5 mg/ml injection (1 source)Amide Local AnestheticStart: 05-06-2020 End: 26-72-5516omwwtsxxizu (PF) (MARCAINE) 0.5 % injection 200 mgStart: 05-06-2020 End: 21-83-5196xhssetmdjwj (PF) (MARCAINE) 0.5 % injection 200 mg12 hr buPROPion hydrochloride 150 mg extended release oral tablet (15 sources)AminoketoneStart: 04-26-2024 End: 04-49-4222izzu 1 tablet by mouth once dailyBupropion Hcl (Wellbutrin Sr) 150 mg tablet sustained-release 12 hr Discontinued 150 MG PO Daily April 26, 2024 1:00am December 02, 2024 11:34pm End: 52-98-2254iyzd 1 tablet by mouth once dailybuPROPion XL (Wellbutrin XL) 150 MG 24 hr tablet Take 150 mg by mouth Daily Do not crush, chew, or split. 10/22/2024 DiscontinuedbusPIRone hydrochloride 15 mg oral tablet (20 sources)Start: 04-10-2022 End: 76-20-4377coys 1 tablet by mouth three times daily as neededBuspirone 15 mg tablet Discontinued 15 MG PO Three times daily June 10, 2022 1:00am June 03, 2023 9:04am TAKE 1 TABLET BY MOUTH THREE TIMES DAILY NEEDED FOR 30 DAYSStart: 04-10-2022 End: 08-09-0455zoxm 1 tablet by mouth twice dailyBuspirone 15 mg tablet Discontinued 15 MG PO Twice daily June 03, 2023 9:01am December 02, 2024 11:34pmStart: 04-10-2022 End: 63-98-0895Xhgrfyzax Discontinued MG TABLET April 10, 2022 1:00am June 10, 2022 6:28pmceFAZolin (ANCEF) 3 g in dextrose 5 % 100 mL IVPB (1 source)Start: 05-06-2020 End: 42-39-1641iuLSSzlnf (ANCEF) 3 g in dextrose 5 % 100 mL IVPBcyclobenzaprine hydrochloride 10 mg oral tablet (20 sources)Muscle RelaxantStart: 06-10-2022 End: 49-46-7058ihux 1 tablet by mouth at bedtimeCyclobenzaprine 10 mg tablet Discontinued 10 MG PO Bedtime June 10, 2022 1:00am November 28, 2023 3:55pmStart: 05-07-2020 End: 88-13-8206rfpp 1 tablet by mouth once daily as needed for muscle spasms cyclobenzaprine (FLEXERIL) 10 MG tablet Take 1 tablet by mouth nightly as needed for Muscle spasms 10 tablet 0 05/07/2020 05/17/2020 ActiveStart: 00-79-2347jpqm 1 tablet by mouth twice daily as needed for muscle spasmscyclobenzaprine (FLEXERIL) 10 MG tablet Take 1 tablet by mouth 2 times daily as needed for Muscle spasms 20 tablet 0 05/07/2020 ActiveStart: 10-08-2019 End: 05-37-3766ozjz 1 tablet by mouth three times daily as needed for muscle spasmsCyclobenzaprine 10 mg tablet Discontinued 10 MG PO Three times daily as needed for Muscle Spasm October 08, 2019 12:00am August 01, 2021 2:19pm End: 06-83-2139ckws 5 mg by mouth three times daily as needed for muscle spasms cyclobenzaprine (Flexeril) 10 MG tablet Take 5 mg by mouth 3 (three) times a day as needed for muscle spasms 10/22/2024 Discontinueddiclofenac sodium 0.01 mg/mg topical gel (17 sources)Nonsteroidal Anti-inflammatory DrugStart: 11-28-2023 End: 33-38-2911ivoah 1 g topically four times daily as needed for painDiclofenac Sodium (Aleve (Diclofenac)) 1 % gel Discontinued 1 GM TOPICAL Four times daily as neededfor pain November 28, 2023 12:00am January 17, 2024 12:03pm apply to single elbow, wrist or hand; for hand includes palm/fingers/back of handStart: 25-80-8344Aqrubzocix Sodium 1 % 2 grams Externally Four times a day as needed for 30 day(s) Mar, Activedoxycycline hyclate 100 mg oral tablet (20 sources)Tetracycline-class DrugStart: 08-01-2021 End: 58-69-7965dzbo 1 tablet by mouth twice dailyDoxycycline Hyclate 100 mg tablet Discontinued 100 MG PO Twice daily August 01, 2021 12:00am April 10, 2022 7:18pmergocalciferol 1.25 mg oral capsule (20 sources)Provitamin D2 CompoundStart: 10-08-2019 End: 82-54-7535Qjimyphbnadnwz (Vitamin D2) (Vitamin D2) 1,250 mcg (50,000 unit) capsule Discontinued 75251 UNIT POevery week October 08, 2019 12:00am August 01, 2021 2:19pm Takes on Sundaystart: 38-85-1302Uloqwmm D2 2000 intl units oral capsule Refills(s) 0 Start Date: 05/25/19 Status: OrderedStart: 01-12-2019 End: 97-05-7633xitc 1 capsule by mouth every weekvitamin D (ERGOCALCIFEROL) 06616 units CAPS capsule Indications: Vitamin D deficiency Take 1 capsule by mouth once a week for 8 doses 8 capsule 0 01/12/2019 05/08/2020 Discontinued (Stop Taking at Discharge) End: 43-46-5279Dmrlcsdkijgwut (VITAMIN D2 PO) Take 50,000 capsules by mouth once a week 0 05/08/2020 Discontinued (Stop Taking at Discharge)Ergocalciferol (VITAMIN D2 PO) Take 50,000 capsules by mouth once a week 0 ActiveNorgestimate- Ethinyl Estradiol (20 sources)Progestin, EstrogenStart: 10-08-2019 End: 96-25-9195ibqc 1 tablet by mouth once dailyNorgestimate-Ethinyl Estradiol (Sprintec (28)) 0.25-35 mg-mcg tablet Discontinued 1 TAB PO Daily October 08, 2019 12:00am August 01, 2021 2:19pmStart: 10-08-2019 End: 97-32-4776jzpj 1 tablet by mouth once dailyNorgestimate-Ethinyl Estradiol (Sprintec (28)) 0.25-35 mg-mcg tablet Discontinued 1 TAB PO Daily October 07, 2019 11:00pm August 01, 2021 1:19pmStart: 27-84-9314fwmv 1 tablet by mouth once dailySPRINTEC 28 0.25-35 MG-MCG per tablet TAKE 1 TABLET BY MOUTH ONCE DAILY 3 01/13/2019 Active2 ml fentaNYL 0.05 mg/ml injection (1 source)Opioid AgonistStart: 05-06-2020 End: 61-51-4179erjnaHDJ (SUBLIMAZE) injection 25 mcgferrous sulfate 325 mg oral tablet (20 sources)Start: 01-30-2020 End: 66-18-2336iuzg 1 tablet by mouth once dailyFerrous Sulfate 325 mg (65 mg iron) tablet Discontinued 325 MG PO Daily June 11, 2022 1:00am August 29, 2023 11:07amgabapentin 300 mg oral capsule (1 source)Anti-epileptic AgentStart: 05-05-2020 End: 93-48-6330jqmf 1 capsule by mouth once daily, then take 1 capsule by mouth, then take 1 capsule by mouthgabapentin (NEURONTIN) 300 MG capsule Take 1 capsule by mouth daily for 2 days. Take one pill the night before and one the morning of surgery 2 capsule 0 05/05/2020 05/08/2020 Discontinued (Stop Taking at Discharge)iohexol (OMNIPAQUE 240) injection 30 mL (1 source)Start: 05-07-2020 End: 41-10-3240byqpsyc (OMNIPAQUE 240) injection 30 mL1 ml ketorolac tromethamine 15 mg/ml cartridge (1 source)Nonsteroidal Anti-inflammatory Drug, Cyclooxygenase InhibitorStart: 05-07-2020 End: 40-18-2016fecorxbmh (TORADOL) injection 15 mgStart: 05-07-2020 End: 22-46-2019itffzdogi (TORADOL) injection 15 mglansoprazole 30 mg delayed release oral capsule (20 sources)Proton Pump InhibitorStart: 10-08-2019 End: 32-58-6193aviq 1 capsule by mouth once daily in the morningLansoprazole 30 mg capsule,delayed release(DR/EC) Discontinued 30 MG PO Every morning November 28, 2023 12:00am February 10, 2024 11:58amletrozole 2.5 mg oral tablet (4 sources)Aromatase Inhibitor End: 20-11-8775slml 1 tablet by mouth once dailyletrozole (Femara) 2.5 MG chemo tablet Take by mouth Daily. Take with or without food. 09/20/2024 Discontinued (Therapy completed)Lidocaine 5 % adhesive patch,medicated (3 sources)Start: 02-24-2024 End: 45-80-1441eginq 1 dose transdermal route once dailyLidocaine 5 % adhesive patch,medicated Discontinued 0 .ROUTE .COMPLEX February 24, 2024 8:53am J anuary 2024 8:57am APPLY 1 PATCH TOPICALLY ONCE DAILY. REMOVE AFTER 12 HOURSStart: 62-69-3204xgiwc 1 dose transdermal route once dailyLidocaine 5 % adhesive patch,medicated Active 0 .ROUTE .COMPLEX February 24, 2024 8:53am APPLY 1 PATCH TOPICALLY ONCE DAILY. REMOVE AFTER 12 HOURSlurasidone hydrochloride 40 mg oral tablet (1 source)Atypical Antipsychotic End: 01-29-5423zkpw 1 tablet by mouth once dailylurasidone (LATUDA) 40 MG TABS tablet Take by mouth daily 0 04/22/2020 Discontinued (LIST CLEANUP) medroxyPROGESTERone acetate 10 mg oral tablet (20 sources)ProgestinStart: 04-10-2022 End: 82-58-3676Cvtqnmfhevypcvxzzsm (Provera) 10 mg tablet Discontinued 10 MG PO Daily 01 25April 10, 2022 1:00am June 10, 2022 6:28pm begin day 16 of cyclemethylPREDNISolone acetate 80 mg/ml injectable suspension (20 sources)CorticosteroidStart: 49-91-7776UKIU-Medrol Sep, 80 mgStart: 58-63-9970ixntbeFMQMIWLnzkuw 4 MG as directed Orally daily for 6 days August, ActiveStart: 31-87-6762hrwrkhONXYMOVjlcuv 4 MG as directed Orally daily for 6 days Jan, Not-Taking2 ml midazolam 1 mg/ml injection (1 source)BenzodiazepineStart: 05-06-2020 End: 76-24-7688dymdhllin PF (VERSED) injection 1 mgmupirocin 20 mg/ml topical cream (20 sources)RNA Synthetase Inhibitor AntibacterialStart: 06-10-2022 End: 21-08-8800Pivpolcmq Calcium 2 % cream Discontinued 1 APPLIC TOPICAL Twice daily as needed for GENITAL BOILS June 10, 2022 1:00am December 02, 2024 11:34pmStart: 46-50-9286Nydagnlva Calcium 2 % 1 application Externally Twice a day for 5 day(s) Jan, ActiveStart: 74-24-3078Knkvrglet Calcium 2 % 1 application Externally Twice a day for 5 day(s) Jan, Activenaltrexone hydrochloride 50 mg oral tablet (20 sources)Opioid AntagonistStart: 10-25-2023 End: 16-35-1896lxyrtgarge (Depade) 50 MG tablet every 12 (twelve) hours 10/25/2023 04/21/2024 ActiveStart: 06-03-2023 End: 38-10-3403ouzl 2 tablets by mouth twice dailynaltrexone 50 mg tablet Take 2 tablets by mouth two times a day. 06/03/2023 ActiveStart: 06-03-2023 End: 03-82-3058epqj 1 tablet by mouth twice dailyNaltrexone 50 mg tablet Discontinued 100 MG PO Twice daily April 23, 2024 3:51pm December 02, 2024 11:34pmStart: 55-06-2301rsep 50 mg by mouth once dailyNaltrexone Active 50 MG PO Daily June 03, 2023 1:00amtake 1 tablet by mouth every twenty-four hours Naltrexone HCl 50 MG 1 tablet Orally Once a day ActiveoxyCODONE hydrochloride 5 mg oral tablet (17 sources)Opioid AgonistStart: 12-09-2023 End: 19-05-8180pije 1 tablet by mouth at mealtime for painOxycodone 5 mg tablet Discontinued 5 MG PO .q6-8hrs as needed for severe pain 03 22December 09, 2023 December 20, 2023 10:47am Take with food. Do not fill until 12/10/23.Start: 12-06-2023 End: 30-94-9800gpnk 1 tablet by mouth every six hours as needed for pain Oxycodone 5 mg tablet Discontinued 5 MG PO Q6H as needed for Pain 04 09December 06, 2023 December 07, 2023 7:13amrisperiDONE 4 mg oral tablet (1 source)Atypical AntipsychoticStart: 09-19-2018 End: 75-40-0735wllj 1 tablet by mouth in the morningrisperiDONE (RISPERDAL) 4 MG tablet TAKE 1 2 (ONE HALF) TABLET BY MOUTH IN THE MORNING AND 1 TAB INTHE EVENING 2 09/19/2018 04/22/2020 Discontinued (LIST CLEANUP)traMADol hydrochloride 50 mg oral tablet (17 sources)Opioid AgonistStart: 12-07-2023 End: 96-79-7110xmsu 1 tablet by mouth every eight hours as needed for pain Tramadol 50 mg tablet Discontinued 50 MG PO Every 8 hours as needed for pain 15 7 December 1443:44pm January 17, 2024 12:04pmtrihexyphenidyl hydrochloride 2 mg oral tablet (1 source)Start: 03-28-2019 End: 24-25-0446qqxo 1 tablet by mouth twice dailytrihexyphenidyl (ARTANE) 2 MG tablet TAKE 1 TABLET BY MOUTH TWICE DAILY FOR 30 DAYS 0 03/28/2019 04/22/2020 Discontinued (LIST CLEANUP) Problems Active Problems Problem ClassificationProblemDateDocumented DateEpisodic/ChronicAbdominal pain (20 sources)Flank pain; Translations: [Unspecified abdominal pain]07-03-2021 EpisodicAdministrative/social admission (2 sources)Treatment plan given; Translations: [Counseling, unspecified] 76-45-6296UspsisosWwxkpqpi reactions (5 sources)Acute urticaria; Translations: [Other urticaria]86-16-4484Uhmtheuj Anxiety disorders (20 sources)Mixed anxiety and depressive disorder; Translations: [Anxiety disorder, unspecified]66-78-3424DgbbcuxLhflxwidd-deficit, conduct, and disruptive behavior disorders (20 sources)Attention deficit hyperactivity disorder, predominantly inattentive type; Translations: [Attention-deficit hyperactivity disorder, predominantly inattentive type]80-92-2503XaobkyyGhhgyukkf-deficit, conduct, and disruptive behavior disorders (1 source)Attention-deficit hyperactivity disorder, predominantly inattentive typeChronicAttention-deficit, conduct, and disruptive behavior disorders (20 sources)Attention deficit hyperactivity disorder; Translations: [Attention- deficit hyperactivity disorder, predominantly inattentive type]ChronicBiliary tract disease (4 sources)Guhpnzrej52-62-1961WkajzemhRfffsfqfbmnus and procreative management (14 sources)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 partner; Translations: [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]Onset: 370238-45-7917QfnuvnuoLkufwydmqj and other anemia (19 sources)Anemia; Translations: [Anemia, unspecified]57-21-7847Zilotbyb Deficiency and other anemia (20 sources)Iron deficiency anemia; Translations: [Iron deficiency anemia, unspecified]36-85-3032RezhdrbbIgxbslwmri and other anemia (4 sources)Anemia, unspecified; Translations: [Anemia, unspecified]06-10-2022 EpisodicDeficiency and other anemia (4 sources)Iron deficiency anemia, unspecified; Translations: [Iron deficiency anemia, unspecified]77-85-8417OdbjotxzBrdoqowwhh and other anemia (2 sources)Other iron deficiency anemiasEpisodicDisorders usually diagnosed in infancy, childhood, or adolescence (20 sources)Non-organic primary nocturnal enuresis; Translations: [Enuresis not due to a substance or known physiological condition]ChronicEsophageal disorders (20 sources)Gastroesophageal reflux disease without esophagitis; Translations: [Gastro-esophageal reflux disease without esophagitis]Onset: 07-16-2021 Resolved: 14-22-3886QifmrvrFtoumr infertility (20 sources)Anovulation; Translations: [Female infertility associated with anovulation]Onset: 038585-53-4306UvqgudtLzgqc of unknown origin (16 sources)Fever; Translations: [Fever, unspecified]50-63-5752Suwmlwbk Genitourinary symptoms and ill-defined conditions (2 sources)Painful micturition, unspecified; Translations: [Other microscopic hematuria]EpisodicHeadache; including migraine (1 source)Headache; including migraine; Translations: [Headache, unspecified] Onset: 75-78-6153Winljemueo during ; abruptio placenta; placenta previa (4 sources)Bleeding from female genital tract during ; Translations: [Antepartum hemorrhage, unspecified, unspecified trimester]Onset: 10-18-2024 15-16-1266PcjkraihOmcnmdglbszuh and screening for infectious disease (8 sources)Patient encounter status; Translations: [Encounter for screening for infectious and parasitic diseases, unspecified]Onset: EpisodicMenstrual disorders (20 sources)Menorrhagia; Translations: [Excessive and frequent menstruation with regular cycle]ChronicMood disorders (20 sources)Bipolar disorder; Translations: [Bipolar affective disorder, currently depressed, mild]Onset: 811206-58-6893MiajzggOgbkgt and vomiting (16 sources)Vomiting; Translations: [Vomiting, unspecified]33-06-8598Hgihlslh Nutritional deficiencies (20 sources)Vitamin D deficiency; Translations: [Vitamin D deficiency, unspecified]Onset: 01-12-2019 Resolved: 610259-20-0874LddyrawRxiwyvkoyzp deficiencies (4 sources)Iron deficiency; Translations: [Vitamin A deficiency, unspecified] Onset: 07-16-2021 Resolved: 28-36-1874RvbokgpnQfmwjbgcjytqvb (20 sources)Arthritis of shoulder region joint; Translations: [Primary osteoarthritis, unspecified shoulder]ChronicOther complications of (5 sources)Maternal obesity complicating , childbirth and the puerperium, antepartum; Translations: [Obesity complicating , second trimester]92-83-6975ObvtgovDxizi complications of (1 source)Obesity complicating , second trimester; Translations: [Obesity complicating , second trimester]Onset: 39-82-2239JeokdszVsvhr complications of (4 sources)Supervision of resulting from assisted reproductive technology, first trimester; Translations: [ resulting from assisted reproductive technology]Onset: 577582-71-7531UvrikbnlQbpur complications of (2 sources)Conceived by in vitro fertilization; Translations: [Supervision of resulting from assisted reproductive technology, first trimester] 41-52-8645OjxcfgegDcvcv complications of (12 sources)Hypothyroidism in ; Translations: [Endocrine, nutritional and metabolic diseases complicating , second trimester]Onset: 041278-79-9167OlcekjsrRlsem complications of (9 sources)Bipolar disorder; Translations: [Other mental disorders complicating , second trimester]Onset: 947474-25-0952RoqoagbqXjemb complications of (2 sources)Supervision of resulting from assisted reproductive technology, unspecified trimester; Translations: [ resulting from assisted reproductive technology]Onset: 496710-25-3583RlemialdCggyw complications of (8 sources)Headache; Translations: [Other specified related conditions, second trimester]Onset: 036169-76-2533KskcqkggOmydv complications of (1 source)Other specified related conditions, second trimester; Translations: [Other specified related conditions, second trimester] Onset: 75-57-4173FbdkrxdoBvdmi complications of (1 source)Bariatric surgery status complicating , unspecified trimester; 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 complicating , unspecified trimester]Onset: 42-40-7343NygiunkpPrrrv complications of (1 source)Endocrine, nutritional and metabolic diseases complicating , second trimester; Translations: [Endocrine, nutritional and metabolic diseases complicating , second trimester]Onset: 15-48-3592NjkplmltRjttj complications of (1 source)Other mental disorders complicating , second trimester; Translations: [Other mental disorders complicating , second trimester] Onset: 59-10-6861XyinljrqHqzwv connective tissue disease (4 sources)Plantar vshoitius43-83-6566ZnuwxjhqBysqu connective tissue disease (1 source)Lateral epicondylitis, right elbowEpisodicOther connective tissue disease (2 sources)Bursitis of right shoulderEpisodicOther connective tissue disease (20 sources)Disorder of ligament, unspecified site; Translations: [Laxity of ligament]EpisodicOther connective tissue disease (14 sources)Laxity of ligament; Translations: [Disorder of ligament, unspecified site]68-89-7370PudjuktgXuiaxfg on above:right shoulderOther connective tissue disease (4 sources)Bilateral plantar fasciitis; Translations: [Plantar fasciitis, bilateral]Onset: Other female genital disorders (20 sources)Abnormal uterine bleeding; Translations: [Other specified abnormal uterine and vaginal bleeding]21-37-1725VvjwybnSjwvv gastrointestinal disorders (15 sources)Constipation; Translations: [Constipation, unspecified]06-08-2023 EpisodicOther gastrointestinal disorders (1 source)Constipation, unspecified; Translations: [Constipation, unspecified] 66-98-7045BkzkumlpUdfao gastrointestinal disorders (11 sources)History of bypass of stomach; 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]Onset: 495620-75-5119FmkbdqafHxigi hematologic conditions (4 sources)H/O: anemia - iron deficient; Translations: [Personal history of diseases of the blood and blood-forming organs and certain disorders involving the immune mechanism]92-70-7896BhqrpcstMcmvt inflammatory condition of skin (1 source)Erythema intertrigoEpisodicOther nervous system disorders (20 sources)Chronic pain; Translations: [Other chronic pain]39-38-8591Ztznvqz Other nervous system disorders (2 sources)Other chronic pain; Translations: [Other chronic pain]ChronicOther nervous system disorders (12 sources)Carpal tunnel syndrome of right wrist; Translations: [Carpal tunnel syndrome, right upper limb]36-29-0328CpxjhsmFlsup nervous system disorders (20 sources)Carpal tunnel syndrome, right upper limb; Translations: [Carpal tunnel syndrome]19-86-7918FdncgilJyuxj nervous system disorders (1 source)Postoperative pain ; Translations: [Post-op pain]EpisodicOther nervous system disorders (14 sources)Numbness of hand; Translations: [Anesthesia of skin]10-13-2023 EpisodicOther nervous system disorders (13 sources)Anesthesia of skin; Translations: [Disturbance of skin sensation] 74-31-6832TqaghkdmIwyin non-traumatic joint disorders (16 sources)Derangement of right [...] right shoulder joint; Translations: [Other instability, right shoulder]25-41-9383LjrcqpxuKypbm nutritional; endocrine; and metabolic disorders (8 sources)Body mass index 40+ - severely obese; Translations: [Morbid obesity with BMI of 50.0-59.9, adult]Onset: 12-05-2018 Resolved: 462139-24-1014EascwglTtsnt nutritional; endocrine; and metabolic disorders (4 sources)Morbid cnecaqb05-41-9734IaoqeyhCsrfx and delivery including normal (16 sources)Early stage of ; Translations: [Encounter for supervision of normal , unspecified, unspecified trimester]Onset: 09-03-2024 02-76-1171BumpxmaaGhbkv screening for suspected conditions (not mental disorders or infectious disease) (5 sources)Thyroid function tests abnormal; Translations: [Abnormal results of thyroid function studies]Onset: 027701-46-5727UhxtvzcjBfbbz skin disorders (1 source)Follicular disorder, unspecifiedEpisodicResidual codes; unclassified (20 sources)Obstructive sleep apnea syndrome; Translations: [Obstructive sleep apnea (adult) (pediatric)]51-98-6379IltzuclBpbmgcz on above:patient denies. sleep study 2010Residual codes; unclassified (18 sources)Other specified postprocedural states; Translations: [Other postprocedural status]Onset: 07-16-2021 Resolved: 31-19-4624SavjlxtrBnrggdvg codes; unclassified (15 sources)Chill; Translations: [Chills (without fever)]38-93-2339Lyjrkofl Residual codes; unclassified (20 sources)History of sleeve gastrectomy; Translations: [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]]57-52-6661JaxgacpdKsgdujy on above:Aprilesidual codes; unclassified (1 source)Chills (without fever); Translations: [Chills (without fever)] 87-64-2955LrgwwkznSwvkzdak codes; unclassified (1 source)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]; Translations: [Personal history of surgery to other organs]52-45-6282IkckjqeoAxbioiod codes; unclassified (9 sources)History of arthroscopic procedure on shoulder; Translations: [Other specified postprocedural states]99-23-9443XcakrivzMlrvconl codes; unclassified (1 source)Gestation period, 9 weeks; Translations: [9 weeks gestation of ]77-22-4748AmikezzmBzquvgzp codes; unclassified (2 sources)Gestation period, 13 weeks; Translations: [13 weeks gestation of ]08-13-9798BjuzzakmRnyailvm codes; unclassified (2 sources)Gestation period, 18 weeks; Translations: [18 weeks gestation of ]66-85-9359FlbklxmsThvyeyvv codes; unclassified (1 source)Gestation period, 20 weeks; Translations: [20 weeks gestation of ]28-42-8601XvauijtcLnphwgml codes; unclassified (2 sources)Gestation period, 22 weeks; Translations: [22 weeks gestation of ]33-87-7743NzlzyxdiOqmtgzrd codes; unclassified (2 sources)Gestation period, 26 weeks; Translations: [26 weeks gestation of ]46-52-3485OhcftnofPpcuvmdr codes; unclassified (2 sources)Gestation period, 29 weeks; Translations: [29 weeks gestation of ]75-52-4901OjxjsuneIhrundpb codes; unclassified (2 sources)Gestation period, 31 weeks; Translations: [31 weeks gestation of ]78-66-6846JlwvgezeJdxy and subcutaneous tissue infections (20 sources)Abscess; Translations: [Cutaneous abscess, unspecified]08-01-2021 EpisodicSprains and strains (20 sources)Strain of unspecified muscle, fascia and tendon at shoulder and upper arm level, right arm, initialencounter; Translations: [Strain of other muscles, fascia and tendons at shoulder and upper arm level, right arm, initial encounter]EpisodicSubstance-related disorders (4 sources)Marijuana user; Translations: [Marijuana use]Onset: 12-05-2018 44-21-3076Uycijoy disorders (20 sources)Hypothyroidism; Translations: [Acquired hypothyroidism]Onset: 12-05-2018 Resolved: 938468-66-3623NqvfmmsYidcqcy disorders (6 sources)Disorder of thyroid gland; Translations: [Disorder of thyroid, unspecified]90-02-9310ZcylgwkmPrzlegwdigtx (2 sources)History of sleeve gastrectomy; Translations: [Status post laparoscopic sleeve gastrectomy]Onset: 213207-07-2319Zxrzuuklgjpy (5 sources)Patient encounter status; Translations: [Pre-op testing]09-03-2018 Unclassified (1 source) 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)69-69-6856Rnmdmdsygxxc (20 sources)OB RemindersOnset: 92-46-430000205771-10-8885Khahonolkali (2 sources)keep next scheduled appointmentUnclassified (1 source)IUI pregnancyOnset: 29-89-9244Gyczerkswghe (1 source)Pee's ThyroiditisOnset: 12-05-2024 Past or Other Problems Problem ClassificationProblemDateDocumented DateEpisodic/ChronicScreening and history of mental health and substance abuse codes (1 source)Personal history of nicotine dependenceOnset: 07-16-2021 Resolved: 48-28-2261QmpnypywVjdfwqrbeczo (3 sources)History of bypass of lmptufp95-24-0269Utgpenwkezpi (1 source)Encounter for supervision of resulting from assisted reproductive technology, ylfhothqvx42-66-8255XYYCIIN: Highlighted row has been ruled out!Unclassified (1 source)No known active ytvkncfb79-65-8173 Results Test NameValueInterpretationReference RangeFacilityUS OB BPP W NON-STRESS on 70-26[place]9494[place] [address] Ultrasound Report Signed Patient: JAZ SANDERS MR#: [id number] : 1995 Acct:[id number] Age/Sex: 29 / F ADM Date: 02/25/25 Loc: US Attending Dr: Les Martinez D.O. Ordering Physician: Les Martinez D.O. Date of Service: 02/25/25 Procedure(s): US OB BPP w non-stress Accession Number(s): [id number] cc: Les Martinez D.O.; AMANDA FORD [place] [id number] Patient Name: JAZ SANDERS MRN: [id number] date: 1995 Sex: F Assigned Patient Location: [facility] Current Patient Location: Accession/Order Number: [id number] Exam Date: 02/25/2025 14:03 Report Date: 02/26/2025 [...] Umana M.D. 02/26/2025 8:30 AM Dictation Location: [place] [address] Electronically authenticated by: [id number] Y Date: 02/26/2025 08:30 Dictated By: Alana Umana M.D. Signed By: 02/26/25831 DD/ 9 TD/TT: Filter Press Tender:TBHRadiology, Radiologist, MD - 02/26/2025 [place] [address] Ultrasound Report Signed Patient: JAZ SANDERS MR#: [id number] : 1995 Acct:[id number] Age/Sex: 29 / F ADM Date: 02/25/25 Loc: US Attending Dr: Les Martinez D.O. Ordering Physician: Les Martinez D.O. Date of Service: 02/25/25 Procedure(s): US OB BPP w non-stress Accession Number(s): [id number] cc: Les Martinez D.O.; AMANDA FORD [address] [address] Patient Name: JAZ SANDERS MRN: [id number] date: 1995 Sex: F Assigned Patient Location: [facility] Current Patient Location: Accession/Order Number: [id number] Exam Date: 02/25/2025 14:03 Report Date: 02/26/2025 [...] Umana M.D. 02/26/2025 8:30 AM Dictation Location: [place] [address] Electronically authenticated by: [id number] Y Date: 02/26/2025 08:30 Dictated By: Alana Umana M.D. Signed By: 02/26/25831 DD/ 9 TD/TT: Filter Press Tender: GUDELIA HealthcareRadiology Study observation (narrative)NOMS HealthcareUS OB BPP W NON-STRESSOrdered By: Radiologist Radiology on 74-94-6410ZPVWMercy Hospital Joplin Work Phone: aLL THYROID STIM HORMONEon 14-36-3782XUV Qn1.347 m[IU]/LNOMS HealthcareCLINISYNCNOMS HealthcareUrinalysis macro (dipstick) panel (U)on 79-03-4209Dpwrutjul, UANegativeNegative - 4(70) +++ mg/dLNOMS Healthcare Blood, [...] mg/dLNOMS HealthcareNOMS HealthcareUrinalysis macro (dipstick) panel (U)on 70-51-3592Mazdotxcm, UA NegativeNegative - 4(70) +++ mg/dLNOMT HealthcareBlood, UANegativeNegative - 50 Yehuda/mcLNOMT HealthcareClarity, UAClearNOMS HealthcareColor, UAYellowNOMT HealthcareGlucose, UANegativeNegative - 2000(110) ++++ mg/dLNOMT Healthcare Interpretation and review of laboratory resultsAbnormalNOMS HealthcareKetones, UAPositiveNegative - 160(16) ++++ mg/dLLIFEPOINT HOSPITALS HealthcareLeukocytes, UATrace Negative - 500+++ Kourtney/mcLLIFEPOINT HOSPITALS HealthcareNitrite, UANegativeNegative - Positive NOMS HealthcarepH, UA6.55 - 9NOMS HealthcareProtein, UANegativeNegative - 2000(20) ++++ mg/dLNOMT HealthcareSpec Grav, UA1.0101 - 1.03NOMT Healthcare Urobilinogen, UA2.00.2 - 12 mg/dLNOMS [facility]rec[facility] Crille HospitalNOMS HealthcareUS OB FOLLOW UP TRANSABDOMINAL APPROACHon 36-28-2310JY OB FOLLOW UP TRANSABDOMINAL APPROACH FINDINGS: Comparison [...] Delivery: 04/23/25 Gestational Age as of 01/16/2025: 79r2pSqrsdqliwn macro (dipstick) panel (U)on 82-97-5483Hmwpbkaib, UANegativeNegative - 4(70) +++ mg/dLNOMS HealthcareBlood, UANegativeNegative [...] mg/dLNOMS HealthcareNOMS Healthcare ALL THYROID STIM HORMONEon 66-62-1001OHY Qn2.449 m[IU]/LNOMS HealthcareCLINISYNC NOMS HealthcareALL CBC WITH AUTO DIFFon 69-00-5779YHSXESADS ABSOLUTE OUYJ5CLYG HealthcareBasophils/100 WBC (Bld)0.3 %0.2 - 2.0 %NOMS HealthcareEosinophils/100 WBC (Bld)1.2 %0.9 - 7.0 %[facility] HealthcareErythrocyte distribution width (RBC) [Ratio]13.2 %11.0 - 15.0 %[facility] HealthcareHematocrit (Bld) [Volume fraction]35.6 %Low36.0 - 48.0 %[facility] HealthcareHemoglobin (Bld) [Mass/Vol]12 g/dL12.0 - 16.0 g/dLMercy Hospital JoplinIMMATURE GRANULOCYTES ABS AUTO0.1HighNOMercy Hospital WashingtonImmature granulocytes/100 WBC (Bld)0.8 %High0.0 - 0.5 %[facility] HealthcareInterpretation and review of laboratory resultsAbnormalMercy Hospital JoplinLYMPHOCYTES ABSOLUTE AUTO2.3 NOMWashington University Medical CenterLymphocytes/100 WBC (Bld)19.7 %Low20.5 - 60.0 %[facility] InstituteH (RBC) [Entitic mass]29.6 pg26.7 - 34.0 pgMercy Hospital JoplinMCHC (RBC) [Mass/Vol] 33.7 g/dL29.9 - 35.2 g/dLMercy Hospital JoplinMCV (RBC) [Entitic vol]87.7 fL81.0 - 99.0 fLMercy Hospital JoplinMONOCYTES ABSOLUTE AUTO0.7NOMercy Hospital WashingtonMonocytes/100 WBC (Bld)6.2 %1.7 - 12.0 %[facility] Hospital JoplinNEUTROPHILS ABSOLUTE AUTO8.5HighNOMercy Hospital WashingtonNeutrophils/100 WBC (Bld)71.8 %43.0 - 75.0 %[facility] Hospital JoplinPlatelet mean volume (Bld) [Entitic vol]8.7 fLLow9.5 - 13.5 fLMercy Hospital JoplinTBH EO #0.1 [facility] JoplinTB [id number] Hospital RBC4.06LowNOMercy Hospital WashingtonTB WBC11.8 HighMercy Hospital JoplinCLINISYNCNSaint John's Aurora Community HospitalGLUCOSE 1 HOURon 71-75-9097Aqacvpz [Mass/Vol]118 mg/dLNINF - 130 mg/dLCatawba Valley Medical Center Urinalysis macro (dipstick) panel (U)on 24-06-4496Ihceinvsk, UANegativeNegative - 4(70) +++ mg/dLNOMS HealthcareBlood, UANegativeNegative [...] - 12 mg/dLNOMT HealthcareNOMT HealthcareNo Panel Informationon 50-65-9728MWUZREXJWJJYV HealthcareTB UA (CLEAN/CATCH) SOFTWARE QUALITY ANALYST/MICRO IF IND.on 30-68-4031CNFZJHPKC URINE NegativeNEGATIVENOMS HealthcareBLOOD URINESMALLAbnormalNEGATIVENOMT Healthcare Clarity (U)CLEARCLEARNOMS HealthcareColor (U)LT. YELLOWYELLOWNOMT Healthcare GLUCOSE URINE UANegativeNEGATIVE mg/dLNOMT HealthcareInterpretation and review of laboratory resultsAbnormalNOMS HealthcareKetones Ql (U)NegativeNEGATIVE mg/dL NOM HealthcareLeukocyte esterase Test strip Ql (U)NegativeNEGATIVENOMS HealthcareNITRITE URINENegativeNEGATIVENOMS HealthcarepH (U)5.5 [pH]5.0 - 9.0 NOMS HealthcarePROTEIN URINENegativeNEG/TRACE mg/dLNOMT HealthcareSPECIFIC GRAVITY URINE1.0151.005 - 1.025NOMT HealthcareURINE MICROSCOPIC INDICATEDYESNOMT HealthcareUROBILINOGEN URINE0.2 EU/dL0.2 - 1.0 EU/dLMercy Hospital JoplinTB URINE MICROSCOPIC ONLYon 73-73-1942CTRWIZYJ URINENONE SEENNONE SEEN #/HPFNOMS HealthcareCAST SEEN?NONE SEENNONE SEEN #/LPFNOMS HealthcareCRYSTALS SEEN?None SeenNone Seen #/HPFNOMS HealthcareMUCUS URINENONE SEENNONE SEENNOMT Healthcare SQUAMOUS EPITHELIAL CELL URINERARENONE/RARE #/LPFNOMercy Hospital WashingtonTBH RBC0-2NOMS [facility] Crille HospitalTB WBCNONE SEENNONE SEEN #/HPFNOMercy Hospital WashingtonURINE CULTURE INDICATED NONOMS HealthcareUS OB 14+ WEEKS ANATOMY SCANon 84-00-5006IM OB 14+ WEEKS ANATOMY SCANEXAM: US OB [...] II, MD, PHD at 06-Dec-2024 08:04:50 AM [facility] TeleradiologyNormalNot AvailableComment on above:Order Comment: US OB ANATOMY SINGLE W US OB CERVICAL LENGTH Estimated Date of Delivery: 04/23/25 Gestational Age as of 11/20/2024: 79c5aPdhbziwppl complete panel (U)on 12-03-2024 Comment c/o urinary symptoms or increased blood pressure Name Collection Type:: VoidedFIRELANDSNOMS HealthcareAppearance of Urineon 73-48-7378Elmpspmfkd (U)ClearNormalClearNOMS HealthcareComment on above:Order Comment: Comment c/o urinary symptoms or increased blood pressure Name Collection Type:: VoidedPerformed By: #### ADDONUAPLUS #### [address] [address] USABacteria [Presence] in Urine by AutomatedOrdered By: Eduardo Cruz on 79-86-3984Pvdmiauw Auto Ql (U)1+ [HPF]HighNone SeenClermont County HospitalBilirubin Test strip Ql (U)Ordered By: Eduardo Cruz on 54-99-0166Vvbxinbfw Ql (U)NegativeNegativeClermont County HospitalColor of Urine by Autoon 66-05-3641Tnawn (U)Light-YellowNormalYellowNOMS Healthcare Comment on above:Order Comment: Comment c/o urinary symptoms or increased blood pressure Name Collection Type:: VoidedPerformed By: #### ADDONUAPLUS #### [facility] [address] [place] [address] USADipstick and Microscopicon 39-02-1903Fmhovshp,Urine1+ [HPF]NormalNone SeenNch Healthcare System - Downtown Naples Physician GroupComment on above:Order Comment: Comment c/o urinary symptoms or increased blood pressure Name Collection Type:: VoidedPerformed By: #### ADDONUAPLUS #### [address] [address] USABILIRUBIN,URINENegativeNormalNegativeNOMS Healthcare Comment on above:Order Comment: Comment c/o urinary symptoms or increased blood pressure Name Collection Type:: VoidedPerformed By: #### ADDONUAPLUS #### [place] [address] USAGlucose Ql (U)NormalNormalNormalNOMS HealthcareComment on above:Order Comment: Comment c/o urinary symptoms or increased blood pressure Name Collection Type:: VoidedPerformed By: #### ADDONUAPLUS #### [place] [address] USAHyaline Casts,UrineNoneNormal0-8The Count Includes [facility] Physician GroupComment on above:Order Comment: Comment c/o urinary symptoms or increased blood pressure Name Collection Type:: VoidedPerformed By: #### ADDONUAPLUS #### [place] [address] USAMucus,Urine1+ [LPF]Critically abnormalThe Count Includes The [facility] [facility] Physician GroupComment on above:Order Comment: Comment c/o urinary symptoms or increased blood pressure Name Collection Type:: VoidedResult Comment: PERFORMED BY: [place] [address] PATHOLOGIST DIGITAL COMMUNICATIONS MANAGER DAMIÁN DOSHI M.D.Performed By: #### ADDONUAPLUS #### [place] [address] USANITRITE,URINENegativeNormalNegativeNOMS HealthcareComment on above:Order Comment: Comment c/o urinary symptoms or increased blood pressure Name Collection Type:: VoidedPerformed By: #### ADDONUAPLUS #### [place] [address] USAOCCULT BLOOD,URINE3+NormalNegativeNOMS HealthcareComment on above:Order Comment: Comment c/o urinary symptoms or increased blood pressure Name Collection Type:: VoidedResult Comment: PERFORMED BY: [place] [address] PATHOLOGIST DIGITAL COMMUNICATIONS MANAGER DAMIÁN DOSHI M.D.Performed By: #### ADDONUAPLUS #### [facility] [address] [place] [address] USAPROTEIN,URINENegativeNormalNegativeNOMS HealthcareComment on above:Order Comment: Comment c/o urinary symptoms or increased blood pressure Name Collection Type:: VoidedPerformed By: #### ADDONUAPLUS #### [place] [address] USARBC,Ngpyd9-4Zukjfy4-1Fmv Count Includes The [facility] Physician GroupComment on above:Order Comment: Comment c/o urinary symptoms or increased blood pressure Name Collection Type:: VoidedPerformed By: #### ADDONUAPLUS #### [place] [address] USASPECIFICY GRAVITY,URINE1.151Jowlsn9.001-1.030NOMS HealthcareComment on above:Order Comment: Comment c/o urinary symptoms or increased blood pressure Name Collection Type:: VoidedPerformed By: #### ADDONUAPLUS #### [place] [address] USASquamous Epithelial Cell,Tceih7-3Jcfvdx4-0Vxq Count Includes The [facility] Physician GroupComment on above:Order Comment: Comment c/o urinary symptoms or increased blood pressure Name Collection Type:: VoidedPerformed By: #### ADDONUAPLUS #### [place] [address] USAUROBILINOGEN,URINENormalNormalNormalNOMS HealthcareComment on above:Order Comment: Comment c/o urinary symptoms or increased blood pressure Name Collection Type:: VoidedPerformed By: #### ADDONUAPLUS #### [place] [address] USAWBC,Grjxe4-5Danvmh5-3Ssn Count Includes The [facility] Physician GroupComment on above:Order Comment: Comment c/o urinary symptoms or increased blood pressure Name Collection Type:: VoidedPerformed By: #### ADDONUAPLUS #### [place] [address] USAEpithelial cells.squamous [#/area] in Urine sediment by Automated countOrdered By: Eduardo Cruz on 02-47-8152Gzjoxenhol cells.squamous Auto (Urine sed) [#/Area]1-2 [HPF]0-2FSumma Health [facility] Campus Erythrocytes [#/area] in Urine sediment by Automated countOrdered By: Eduardo Cruz on 91-86-5959ZMW Auto (Urine sed) [#/Area]1-2 [HPF]0-4FSumma Health Akron CampusGlucose [Mass/volume] in Urine by Test stripOrdered By: Eduardo Cruz on 91-19-7099Lsvcphd Test strip (U) [Mass/Vol]Normal mg/dLNormalClermont County HospitalHemoglobin Test strip Ql (U)Ordered By: Eduardo Cruz on 27-25-5844Ibiqkhkflt Ql (U)3+HighNegativeClermont County Hospital Hyaline casts [#/area] in Urine sediment by Automated countOrdered By: Eduardo Cruz on 28-04-1981Femnzuy casts Auto (Urine sed) [#/Area]None [LPF]0-8Cl[facility] County HospitalKetones [Presence] in Urine by Test stripon 12-02-2024 Ketones Ql (U)NegativeNormalNegativeNOMS HealthcareComment on above:Order Comment: Comment c/o urinary symptoms or increased blood pressure Name Collection Type:: VoidedPerformed By: #### ADDONUAPLUS #### [facility] [address] [place], [place] [id number] USALeukocyte esterase [Presence] in Urine by Test stripon 93-71-4851Fpgkjouqh esterase Test strip Ql (U)NegativeNormalNegativeNOMS HealthcareComment on above:Order Comment: Comment c/o urinary symptoms or increased blood pressure Name Collection Type:: VoidedPerformed By: #### ADDONUAPLUS #### [facility] [address] [place], [place] [id number] USALeukocytes [#/area] in Urine sediment by Automated count Ordered By: Eduardo Cruz on 85-64-5364OTO Auto (Urine sed) [#/Area]1-2 [HPF]0-4 [facility] HospitalMucus [Presence] in Urine by AutomatedOrdered By: Eduardo Cruz on 00-62-8100Vjots Auto Ql (U)1+ [LPF]AbnormalClermont County HospitalNitrite Test strip Ql (U)Ordered By: Eduardo Cruz on 24-65-5814Kawmffp Ql (U)NegativeNegSCCI Hospital LimaProtein Test strip (U) [Mass/Vol]Ordered By: Eduardo Cruz on 20-74-5872Lpyoxrx (U) [Mass/Vol]NegativeNegativeOur Lady of Mercy Hospital - Andersonpecific gravity Test strip (U) [Rel density]Ordered By: Eduardo Cruz on 25-16-0577Evxynmsf gravity (U) [Rel density]1.0171.001-1.030Cl[facility] County HospitalUrobilinogen Test strip (U) [Mass/Vol]Ordered By: Eduardo Cisneroscarlos on 19-66-5190Ybbrattxdwcj (U) [Mass/Vol]Normal mg/dLNormSt. Anthony's HospitalpH of Urine by Test stripon 03-03-2683rZ (U)5.5 [pH]Normal5.0-9.0NOMS HealthcareComment on above:Order Comment: Comment c/o urinary symptoms or increased blood pressure Name Collection Type:: VoidedPerformed By: #### ADDONUAPLUS #### [place] [address] USABasophils Auto (Bld) [#/Vol]Ordered By: Elizabeth Osborne ([place]) on 62-18-1046Exypemeoa (Bld) [#/Vol]0.0 10 3/uL0.0-0.1FSumma Health Akron CampusBasophils/100 WBC Auto (Bld)Ordered By: Elizabeth Osborne ([place]) on 39-49-8721Nfpxacykk/100 WBC (Bld)0.3 %0.2-2.0[facility] Eosinophils/100 WBC Auto (Bld)Ordered By: (Roman) Elizabeth Osborne on 12-01-2024 Eosinophils/100 WBC (Bld)1.8 %0.9-7.0[facility] Erythrocyte distribution width Auto (RBC) [Ratio]Ordered By: Elizabeth Osborne ([place]) on 86-73-3243Emfgizxdusn distribution width (RBC) [Ratio]14.0 %11.0-15.0 [facility] HospitalGlobulin Calc (S) [Mass/Vol]Ordered By: ([place]) Elizabeth Osborne on 21-41-0496Qkqfovcg (S) [Mass/Vol]3.6 g/dLClermont County HospitalGlomerular filtration rate (GFR) estimation in non- AmericanOrdered By: (Roman) Elizabeth India on 66-21-5917OBN/1.73 sq M.predicted among non-blacks MDRD (S/P/Bld) [Vol rate/Area]mL/min/{1.73_m2}>=60 mL/min/1.73m 2FSumma Health Akron CampusHematocrit Auto (Bld) [Volume fraction]Ordered By: (Roman) Elizabeth Osborne on 08-12-6155Pqybxlxpta (Bld) [Volume fraction]38.0 %36.0-48.0[facility] HospitalHemoglobin [Mass/volume] in BloodOrdered By: (Roman) Elizabeth Osborne on 45-84-0088Rwnshnknmd (Bld) [Mass/Vol]13.0 g/dL12.0-16.0[facility] HospitalLaboratory - Chemistry and Chemistry - challengeOrdered By: (Roman) Elizabeth Osborne on 02-50-7271Oafqpikbj Ql (U)NegativeNEGATIVEClermont County Hospital Glucose (U) [Mass/Vol]NegativeNEGATIVEClermont County HospitalKetones Ql (U)NegativeNEGATIVEClermont County HospitalpH (U)6.0 [pH]5.0-9.0 [facility] Andersonpecific gravity (U) [Rel density]1.025 1.005-1.025Cl[facility] County HospitalUrobilinogen Qn (U)1.0 {Fabián'U}/dL0.2-1.0[facility] HospitalAlbumin [Mass/Vol]3.1 g/dL Low3.4-5.0[facility] HospitalALP [Catalytic activity/Vol]45 U/LLow 46-116Cl[facility] HospitalALT [Catalytic activity/Vol]20 U/L14-59 [facility] HospitalAST [Catalytic activity/Vol]14 U/YWus82-87 [facility] HospitalBilirubin [Mass/Vol]0.4 mg/dL0.2-1.0[facility] HospitalCalcium [Mass/Vol]8.6 mg/dL8.5-10.1FSumma Health Akron CampusChloride [Moles/Vol]106 mmol/G43-781PqcwjllomClermont County HospitalCO2 [Moles/Vol]25.7 mmol/L21.0-32.0[facility] Creatinine [Mass/Vol]0.37 mg/dLLow0.55-1.02[facility] GFR/1.73 sq M.predicted MDRD (S/P/Bld) [Vol rate/Area]mL/min/{1.73_m2}>=60 mL/min/1.73m 2FSumma Health Akron CampusGlucose [Mass/Vol]61 mg/dLLow 74-106Cl[facility] HospitalPotassium [Moles/Vol]3.9 mmol/L3.5-5.1 [facility] HospitalProtein [Mass/Vol]6.7 g/dL6.4-8.2FACMC Healthcare System Glenbeighodium [Moles/Vol]139 mmol/R573-780WskfymxrqClermont County HospitalUrea nitrogen [Mass/Vol]3.0 mg/dLLow7.0-18.0[facility] HospitalUrea nitrogen/Creatinine [Mass ratio]8.1 mg/mgClermont County HospitalLaboratory - Hematology and Cell countsOrdered By: Elizabeth Osborne ([place]) on 50-38-4647Pcbdlxqm granulocytes/100 WBC (Bld)1.0 %High0.0-0.5 [facility] HospitalLaboratory - Specimen informationOrdered By: Elizabeth Osborne ([place]) on 22-75-5177Nscbieveoa (U)CLEARCLEARFSumma Health Akron CampusColor (U)LT. YELLOWYELLOWClermont County Hospital Laboratory - UrinalysisOrdered By: Elizabeth Osborne ([place]) on 67-26-1164Qexlaysfc esterase Test strip Ql (U)NegativeNEGATIVEClermont County Hospital Nitrite Ql (U)NegativeNEGATIVEClermont County HospitalProtein Ql (U) NegativeNEG/TRACEClermont County HospitalLeukocytes [#/volume] corrected for nucleated erythrocytes in Blood by Automated counOrdered By: (Owens) Elizabeth Osborne on 02-54-5837WIO corrected for nucl RBC Auto (Bld) [#/Vol]10.0 10 3/uL4.0-11.0[facility] HospitalLymphocytes Auto (Bld) [#/Vol]Ordered By: (Owens) Elizabethnura Thomason on 48-86-2496Cpxobrrlroy (Bld) [#/Vol]2.2 10 3/uL1.2-3.8[facility] HospitalLymphocytes/100 WBC Auto (Bld)Ordered By: (Owens) Elizabethnura Thomason on 21-76-2367Cjbyvhyvugd/100 WBC (Bld)22.1 %20.5-60.0[facility] Auto (RBC) [Entitic mass]Ordered By: (Owens) Elizabethnura Thomason on 98-93-4682MGJ (RBC) [Entitic mass] 29.8 pg26.7-34.0[facility] HospitalMCHC Auto (RBC) [Mass/Vol] Ordered By: (Owens) Elizabethnura Thomason on 99-82-8575ZWCI (RBC) [Mass/Vol]34.2 g/dL 29.9-35.2FSumma Health Akron CampusMCV Auto (RBC) [Entitic vol]Ordered By: (Owens) Elizabethnura Thomason on 03-07-5808IUZ (RBC) [Entitic vol]87.2 fL81.0-99.0 [facility] HospitalMonocytes Auto (Bld) [#/Vol]Ordered By: (Owens) Elizabethnura Thomason on 62-85-7519Wjoxmfspq (Bld) [#/Vol]0.7 10 3/uL0.3-0.8 [facility] HospitalMonocytes/100 WBC Auto (Bld)Ordered By: (Owens) Elizabeth India on 34-21-1826Pyeylabze/100 WBC (Bld)6.5 %1.7-12.0 [facility] HospitalNeutrophils Auto (Bld) [#/Vol]Ordered By: (Owens) Elizabeth India on 54-03-8454Xtycfoellfy (Bld) [#/Vol]6.9 10 3/uLHigh 1.4-6.5FSumma Health Akron CampusNeutrophils/100 WBC Auto (Bld)Ordered By: Angelina) Elizabeth Osborne on 69-93-0367Uzmzfnqywrz/100 WBC (Bld)68.3 %43.0-75.0 [facility] HospitalNo Panel InformationOrdered By: (Roman) Elizabeth Osborne on 63-24-7854Cutyd Microscopic ReviewNOClermont County HospitalUrine Occult BloodNegativeNEGATIVEClermont County Hospital Eosinophils # (Auto)0.2 10 3/uL0.0-0.7FSumma Health Akron CampusImmature Granulocyte # (Auto)0.10 10 3/uLHigh0.00-0.03[facility] Platelet mean volume Auto (Bld) [Entitic vol]Ordered By: Elizabeth Osborne ([place]) on 58-19-9438Bjxneffo mean volume (Bld) [Entitic vol]8.3 fLLow9.5-13.5FSumma Health Akron CampusPlatelets Auto (Bld) [#/Vol]Ordered By: Angelina) Elizabeth Osborne on 90-76-2423Vpcapfhev (Bld) [#/Vol]177 10 3/lS178-539AkkicatukClermont County HospitalRBC Auto (Bld) [#/Vol]Ordered By: Angelina) Elizabeth Osborne on 61-31-4078UCH (Bld) [#/Vol]4.36 10 6/uL4.20-5.40[facility] - Andersonerum or plasma albumin/globulin mass ratioOrdered By: (Roman) Elizabeth Osborne on 13-09-5163Xrjusog/Globulin [Mass ratio]0.9 {ratio}[facility] - Andersonerum or plasma anion gap determinationOrdered By: Angelina) Elizabeth Osborne on 14-65-1830Ragcd gap [Moles/Vol]11.2 mmol/LFSumma Health Akron CampusBasophils Auto (Bld) [#/Vol]Ordered By: Chris Dickerson on 94-14-9717Itavahsex (Bld) [#/Vol]0.0 10 3/uL0.0-0.1FSumma Health Akron CampusBasophils/100 WBC Auto (Bld)Ordered By: Chris Dickerson on 11-30-2024 Basophils/100 WBC (Bld)0.2 %0.2-2.0[facility] Eosinophils/100 WBC Auto (Bld)Ordered By: Chris Dickerson on 11-30-2024 Eosinophils/100 WBC (Bld)1.7 %0.9-7.0[facility] Erythrocyte distribution width Auto (RBC) [Ratio]Ordered By: Chris Dickerson on 32-54-6869Madjzfawcgd distribution width (RBC) [Ratio]14.1 %11.0-15.0[facility] HospitalGlobulin Calc (S) [Mass/Vol]Ordered By: Chris Dickerson on 33-93-7768Bgovclfw (S) [Mass/Vol]3.3 g/dLClermont County Hospital Glomerular filtration rate (GFR) estimation in non- AmericanOrdered By: Chris Dickerson on 85-35-4551IKA/1.73 sq M.predicted among non-blacks MDRD (S/P/Bld) [Vol rate/Area]mL/min/{1.73_m2}>=60 mL/min/1.73m 2FSumma Health Akron CampusHematocrit Auto (Bld) [Volume fraction]Ordered By: Chris Dickerson on 78-56-9838Qkhneyqggg (Bld) [Volume fraction]36.2 %36.0-48.0[facility] HospitalHemoglobin [Mass/volume] in BloodOrdered By: Chris Dickerson on 00-29-5007Qpfbhmmczc (Bld) [Mass/Vol]12.6 g/dL12.0-16.0[facility] HospitalLaboratory - Chemistry and Chemistry - challengeOrdered By: Chris Dickerson on 27-66-9224Jttczhbzh Ql (U)NegativeNEGATIVEClermont County HospitalGlucose (U) [Mass/Vol]NegativeNEGATIVEClermont County HospitalKetones Ql (U)NegativeNEGATIVEClermont County HospitalpH (U)6.0 [pH]5.0-9.0[facility] Andersonpecific gravity (U) [Rel density] 1.0151.005-1.025Cl[facility] County HospitalUrobilinogen Qn (U)1.0 {Fabián'U}/dL0.2-1.0[facility] HospitalAlbumin [Mass/Vol]3.1 g/dL Low3.4-5.0[facility] HospitalALP [Catalytic activity/Vol]47 U/L 46-116[facility] HospitalALT [Catalytic activity/Vol]20 U/L14-59 [facility] HospitalAST [Catalytic activity/Vol]12 U/MWgh56-64 [facility] HospitalBilirubin [Mass/Vol]0.3 mg/dL0.2-1.0[facility] HospitalBilirubin.direct [Mass/Vol]0.1 mg/dL0.0-0.2FSumma Health Akron CampusCalcium [Mass/Vol]8.8 mg/dL8.5-10.1FSumma Health Akron CampusChloride [Moles/Vol]108 mmol/OJriw04-614DtsxtocysClermont County HospitalCO2 [Moles/Vol]26.0 mmol/L21.0-32.0[facility] Creatinine [Mass/Vol]0.32 mg/dLLow0.55-1.02[facility] GFR/1.73 sq M.predicted MDRD (S/P/Bld) [Vol rate/Area]mL/min/{1.73_m2}>=60 mL/min/1.73m 2FSumma Health Akron CampusGlucose [Mass/Vol]74 mg/cP77-368 [facility] HospitalPotassium [Moles/Vol]4.1 mmol/L3.5-5.1FSumma Health Akron CampusProtein [Mass/Vol]6.4 g/dL6.4-8.2FACMC Healthcare System Glenbeighodium [Moles/Vol]142 mmol/Z056-836QatshdlffClermont County HospitalUrate [Mass/Vol]3.0 mg/dL2.6-6.0[facility] HospitalUrea nitrogen [Mass/Vol]7.0 mg/dL7.0-18.0[facility] HospitalUrea nitrogen/Creatinine [Mass ratio]21.9 mg/mgClermont County Hospital Laboratory - Hematology and Cell countsOrdered By: Chris Dickerson on 11-30-2024 Immature granulocytes/100 WBC (Bld)0.7 %High0.0-0.5FSumma Health Akron CampusLaboratory - Specimen informationOrdered By: Chris Dickerson on 11-30-2024 Appearance (U)CLEARCLEARFSumma Health Akron CampusColor (U)LT. YELLOW YELLOWClermont County HospitalLaboratory - UrinalysisOrdered By: Chris Dickerson on 23-56-7707Olitwgnmw esterase Test strip Ql (U)SMALLAbnormal NEGATIVEClermont County HospitalMucus Ql (Urine sed)TRACEAbnormalNONE SEENClermont County HospitalNitrite Ql (U)NegativeNEGATIVEClermont County HospitalProtein Ql (U)NegativeNEG/TRACEClermont County HospitalLeukocytes [#/volume] corrected for nucleated erythrocytes in Blood by Automated counOrdered By: Chris Dickerson on 19-91-4027KUK corrected for nucl RBC Auto (Bld) [#/Vol]8.7 10 3/uL4.0-11.0[facility] Lymphocytes Auto (Bld) [#/Vol]Ordered By: Chris Dickerson on 07-46-7106Ovkhlnticxq (Bld) [#/Vol]2.0 10 3/uL1.2-3.8[facility] HospitalLymphocytes/100 WBC Auto (Bld)Ordered By: Chris Dickerson on 58-94-3775Qnrvwxhhjvm/100 WBC (Bld) 22.9 %20.5-60.0[facility] Auto (RBC) [Entitic mass] Ordered By: Chris Dickerson on 82-97-3925YEW (RBC) [Entitic mass]30.0 pg26.7-34.0 [facility] HospitalMCHC Auto (RBC) [Mass/Vol]Ordered By: Chris Dickerson on 68-49-0415AYMW (RBC) [Mass/Vol]34.8 g/dL29.9-35.2FSumma Health Akron CampusMCV Auto (RBC) [Entitic vol]Ordered By: Chris Dickerson on 61-83-6263GBT (RBC) [Entitic vol]86.2 fL81.0-99.0[facility] HospitalMonocytes Auto (Bld) [#/Vol]Ordered By: Chris Dickerson on 11-30-2024 Monocytes (Bld) [#/Vol]0.6 10 3/uL0.3-0.8[facility] Monocytes/100 WBC Auto (Bld)Ordered By: Chris Dickerson on 65-26-1012Ywnazdofu/100 WBC (Bld)7.2 %1.7-12.0[facility] HospitalNeutrophils Auto (Bld) [#/Vol]Ordered By: Chris Dickerson on 77-60-2423Hmkkgjiqbny (Bld) [#/Vol]5.9 10 3/uL1.4-6.5FSumma Health Akron CampusNeutrophils/100 WBC Auto (Bld) Ordered By: Chris Dickerson on 19-33-6026Uxhucskctij/100 WBC (Bld)67.3 %43.0-75.0 [facility] HospitalNo Panel InformationOrdered By: Chris Dickerson on 03-59-1094Ovzzb BacteriaMODERATE #/HPFAbnormalNONE St. [facility] HospitalUrine Culture ReflexedYE-[facility] Urine Occult BloodNegativeNEGATIVEClermont County HospitalUrine Other CastsNONE SEEN #/LPFNONE [facility]. [facility] HospitalUrine Other CrystalsNone Seen #/HPFNone [facility] HospitalUrine RBC0-2 #/HPF0-2FSumma Health Akron CampusUrine Squamous Epithelial CellsFEW #/LPFAbnormalNONE/RAREClermont County HospitalUrine WBC0-2 #/HPF AbnormalNONE St. [facility] HospitalEosinophils # (Auto)0.2 10 3/uL0.0-0.7FSumma Health Akron CampusImmature Granulocyte # (Auto)0.06 10 3/uLHigh0.00-0.03[facility] HospitalPlatelet mean volume Auto (Bld) [Entitic vol]Ordered By: Chris Dickerson on 98-04-9375Wbmeuner mean volume (Bld) [Entitic vol]8.7 fLLow9.5-13.5FSumma Health Akron CampusPlatelets Auto (Bld) [#/Vol]Ordered By: Chris Dickerson on 87-63-7898Yjrfslmkc (Bld) [#/Vol] 185 10 3/iU742-959AnvlixsvpClermont County HospitalRBC Auto (Bld) [#/Vol]Ordered By: Chris Dickerson on 70-10-7952AKG (Bld) [#/Vol]4.20 10 6/uL4.20-5.40[facility] Andersonerum or plasma albumin/globulin mass ratioOrdered By: Chris Dickerson on 43-45-9294Jqmqvtv/Globulin [Mass ratio]0.9 {ratio}[facility] Andersonerum or plasma anion gap determinationOrdered By: Chris Dickerson on 72-58-1469Sixqa gap [Moles/Vol]12.1 mmol/LFSumma Health Akron CampusUrine Cultureon 86-71-8684Pdrfebom identified Cx Nom (U)50,000 colonies/ml mixed bacterial skin contaminants 2 Days PERFORMED BY: [place] [address] PATHOLOGIST DIGITAL COMMUNICATIONS MANAGER DAMIÁN DOSHI M.D.NormalNch Healthcare System - Downtown Naples Physician GroupComment on above: Performed By: #### CUU #### [place] [address] USARECURRENT VAGINITIS (HTRX)on 29-78-9634GXVFZDKKM VAGINAE0 NOMS HealthcareATOPOBIUM VAGINAENot detectedNOMS HealthcareBVAB 2,3 (BACTERIAL VAGINOSIS ASSOCIATED BACTERIA 2, 3); MOBILUNCUS [id number] HealthcareBVAB 2,3 (BACTERIAL VAGINOSIS ASSOCIATED BACTERIA 2, 3); MOBILUNCUS SPPNot detectedNOMS HealthcareCANDIDA ALBICANS, PARAPSILOSIS, [id number] HealthcareCANDIDA ALBICANS, PARAPSILOSIS, TROPICALISNot detectedNOMS HealthcareCANDIDA GLABRATA0 NOMS HealthcareCANDIDA GLABRATANot detectedNOMS HealthcareCANDIDA [id number] HealthcareCANDIDA KRUSEINot detectedNOMS HealthcareCHLAMYDIA NQDABLUNTMR3NAVD HealthcareCHLAMYDIA TRACHOMATISNot detectedNOMS HealthcareGARDNERELLA VAGINALIS0 [facility]OMS HealthcareGARDNERELLA VAGINALISNot detectedNOMS HealthcareMEGASPHAERA (TYPES 1, 2)0NOMS HealthcareMEGASPHAERA (TYPES 1, 2)Not detectedNOMS Healthcare MYCOPLASMA UKXMUSDIMY0HTJE HealthcareMYCOPLASMA GENITALIUMNot detectedNOMS HealthcareNEISSERIA KTUBBSCJVVP1GDHZ HealthcareNEISSERIA GONORRHOEAENot detected NOMS HealthcareTRICHOMONAS XZJLQTKTE5GCJO HealthcareTRICHOMONAS VAGINALISNot detectedNOMS HealthcareNOMS HealthcareALL THYROID STIM HORMONEon 38-39-7637NLQ Qn1.702 m[IU]/LNOMS HealthcareCLINISYNCNOMS HealthcareAlpha-fetoprotein (AFP) measurement (esqijjlr-ap-arapnj)Ordered By: Les Martinez on 83-12-3331APA [MoM] 0.87.[facility] HospitalAssess gestational ageOrdered By: Les Martinez on 44-30-0783Hvfqeulfbxg age18.0 weeks.[facility] Estimation of maternal age-specific risk of Down syndrome birthOrdered By: Les Martinez on 48-84-0338Djq [Time]30.1 yr.[facility] HospitalInsulin dependent diabetes mellitus detectionOrdered By: Les Martinez on 11-20-2024 Insulin dependent diabetes mellitus QlNo.[facility] Interpretation of serum or plasma second trimester quad maternal screen (narrative reOrdered By: Les Martinez on 35-16-0781Ihiwxm trimester quad maternal screen Gonzales [Interp]Comment.[facility] HospitalComment on above: Interpretation: Screen NegativeThis [...] and older.Second trimester quad maternal screen Gonzales [Interp]Negative.[facility] HospitalLaboratory - Chemistry and Chemistry - challengeOrdered By: Les Martinez on 54-17-5211UCT Qn1.702 m[IU]/L 0.358-3.740Cl[facility] HospitalNo Panel InformationOrdered By: Les Martinez on 33-81-7389RWA Triple Screen CommentComment.[facility] HospitalComment on above:Gisel Gandhi, Ph.D., DABCCDirectorReferences: Available Upon Request.Multiples Of Median Cutoffs For AFP ElevationsSingleton 2.5 Black 2.8IDD 2.0 Twins 4.5 Abbreviation DefinitionsIDD - Insulin Dep DiabetesOSBR - Open Spina Bifida RiskFor further inquiries contact [employer] at [phone].This test was developed and its performance characteristicsdetermined by [employer]. It has not been cleared or approvedby the Food and Drug Administration.Performed at: [facility] [id number] [place], [place] [id number] Director: Lorena Ellis [facility], Phone: [phone] Fetoprotein Results ReceivedReport.[facility] HospitalGestational Age Calculation MethodUltrasound.[facility] HospitalComment on above:18.0 on 11/20/2024Recalculations are not recommended when gestational datingby LMP and ultrasound are within 10 days. Maternal Quad Test [id number].[facility] HospitalMaternal RaceOther .[facility] HospitalMultiple PregnancyNo.[facility] Andersonerum or plasma amnex-7-yeizbwwytyq measurement (mass/volume) Ordered By: Les Martinez on 16-89-5474ZOJ [Mass/Vol]27.6 ng/mL.[facility] HospitalUrinalysis macro (dipstick) panel (U)on 16-86-0780Mhvehfdwm, UA NegativeNegative - 4(70) +++ mg/dLNOMS HealthcareBlood, UANegativeNegative - 50 Yehuda/mcLNOMS HealthcareClarity, UAClearNOMS HealthcareColor, UAYellowNOMS HealthcareGlucose, UANegativeNegative - 2000(110) ++++ mg/dLNOMS Healthcare Interpretation and review of laboratory resultsAbnormalNOMT HealthcareKetones, UANegativeNegative - 160(16) ++++ mg/dLMercy Hospital JoplinLeukocytes, UA2+Negative - 500+++ Kourtney/mcLNOMercy Hospital WashingtonNitrite, UANegativeNegative - PositiveNOMT HealthcarepH, UA85 - 9NOMT HealthcareProtein, UANegativeNegative - 2000(20) ++++ mg/dLMercy Hospital JoplinSpec Grav, UA1.011 - 1.03NOMercy Hospital WashingtonUrobilinogen, UA1.0 0.2 - 12 mg/dLWashington Regional Medical CenterLaboratory - Chemistry and Chemistry - challengeOrdered By: Chris Dickerson on 81-23-2401Oebiqbaju Ql (U)Negative NEGATIVEClermont County HospitalGlucose (U) [Mass/Vol]NegativeNEGATIVE [facility] HospitalKetones Ql (U)NegativeNEGWilson HealthpH (U)7.5 [pH]5.0-9.0[facility] Specific gravity (U) [Rel density]1.0101.005-1.025Cl[facility] County HospitalUrobilinogen Qn (U)1.0 {Fabián'U}/dL0.2-1.0[facility] HospitalLaboratory - Specimen informationOrdered By: Chris Dickerson on 11-17-2024 Appearance (U)CLEARCLEARFSumma Health Akron CampusColor (U)LT. YELLOW YELLOWClermont County HospitalLaboratory - UrinalysisOrdered By: Chris Dickerson on 22-11-4770Drcjbwdgb esterase Test strip Ql (U)NegativeNEGATIVE [facility] HospitalMucus Ql (Urine sed)NONE SEENNONE St. Francis HospitalNitrite Ql (U)NegativeNEGWilson HealthProtein Ql (U)NegativeNEG/TRACEClermont County HospitalNo Panel InformationOrdered By: Chris Dickerson on 40-51-6449Rwfwe BacteriaTRACE #/HPF AbnormalNONE [facility]. [facility] HospitalUrine Culture ReflexedNO [facility] HospitalUrine Occult BloodNegativeNEGWilson HealthUrine Other CastsNONE SEEN #/LPFNONE SEENNovant Health Rehabilitation Hospitalelands Regional Medical CenterUrine Other CrystalsNone Seen #/HPFNone [facility] HospitalUrine RBCNONE SEEN #/HPF0-2FSumma Health [facility]ron CampusUrine Squamous Epithelial CellsRARE #/LPFNONE/RAREClermont County HospitalUrine WBCNONE SEEN #/HPFNONE [facility] Ultrasound - Officeon [id number] Study observation (narrative)[facility]icMad[facility] SystemUrinalysis macro (dipstick) panel (U)on [id number], UA NegativeNegative - 4(70) +++ mg/dLNOMS HealthcareBlood, [...] HealthcareAppearance of UrineOrdered By: Kassidy Arriaza on 86-42-0020Xsdnxjjlae (U)ClearNormalClearClermont County HospitalComment on above:Order Comment: Name Collection Type:: Clean- Voided MidstreamPerformed By: #### UA, CUU #### [place] [address] USABilirubin Test strip Ql (U)Ordered By: Kassidy Arriaza on 46-78-1324Joleypgxw Ql (U)NegativeNegSCCI Hospital Lima Chlamydia/GC Amplificationon 76-76-5128Eclyjcwyn Trachomotis, NAANegativeNormal NegativeThe Count Includes The [facility] Physician GroupComment on above:Order Comment: SOURCE OF SPECIMEN: GenitalPerformed By: #### GCCHLAMAMP #### [facility] , #### CUGEN #### [place] [address] USANeisseria Gonorrhoeae, NAANegativeNormalNegativeThe Count Includes The [facility] Physician GroupComment on above:Order Comment: SOURCE OF SPECIMEN: GenitalResult Comment: Performed at: = - [facility] [id number] Clinical Operations Leader: Dagmar Love MD, Phone: [phone] PERFORMED BY: [place] [address] PATHOLOGIST DIGITAL COMMUNICATIONS MANAGER DAMIÁN DOSHI M.D.Performed By: #### GCCHLAMAMP #### [facility] , #### CUGEN #### [place] [address] USAColor of Urine by AutoOrdered By: Kassidy Arriaza on 27-09-9319Aylbx (U)ColorlessNormalYLancaster Municipal HospitalComment on above:Order Comment: Name Collection Type:: Clean-Voided MidstreamPerformed By: #### UA, CUU #### [place] [address] USAGenital Cultureon 65-06-5503Xxifhth CultureGenital Results Light Normal Urogenital Damián 2 Days No More GC Specimen not tested for Neisseria gonorrheae PERFORMED BY: [place] [address] PATHOLOGIST DIGITAL COMMUNICATIONS MANAGER DAMIÁN DOSHI M.D.NormalThe Count Includes The [facility] Physician GroupComment on above: Performed By: #### GCCHLAMAMP #### [facility] , #### CUGEN #### [place] [address] USAGenital specimen bacteria identification by aerobic cultureOrdered By: Kassidy Arriaza on 12-51-5037Iyknsqqo identified Aer cx Nom (Genital specimen)Clermont County HospitalGlucose [Mass/volume] in Urine by Test stripOrdered By: Kassidy Arriaza on 45-38-6871Znmnlyh Test strip (U) [Mass/Vol]Normal mg/dLNormSt. Anthony's HospitalHemoglobin Test strip Ql (U)Ordered By: Kassidy Arriaza on 46-17-8442Dqaurdolev Ql (U)Negative [facility] Health InstituteKetones [Presence] in Urine by Test stripOrdered By: Kassidy Arriaza on 98-60-6227Ayzmjns Ql (U)TraceNormalOhiohealth Arthur G.H. Bing, Md, Cancer CenterComment on above:Order Comment: Name Collection Type:: Clean-Voided MidstreamPerformed By: #### UA, CUU #### [facility] [address] [place] [address] USALaboratory - Microbiology and Antimicrobial susceptibility Ordered By: Kassidy Arriaza on 10-18-2024. trachomatis DNA AC+probe Ql (Unsp spec)NegativeNegSCCI Hospital LimaN. gonorrhoeae DNA CA+probe Ql (Unsp spec)NegativeNegSCCI Hospital LimaComment on above:Performed at: = - [facility] [id number] Director: Dagmar Love MD, Phone: [phone] esterase [Presence] in Urine by Test stripOrdered By: Kassidy Arriaza on 10-18-2024 Leukocyte esterase Test strip Ql (U)NegativeNormalRiverview Health InstituteComment on above:Order Comment: Name Collection Type:: Clean- Voided MidstreamPerformed By: #### UA, CUU #### [facility] [address] [place] [address] USANitrite Test strip Ql (U)Ordered By: Kassidy Arriaza on 01-63-1191Btwdthb Ql (U)NegativeNegSCCI Hospital LimaProtein Test strip (U) [Mass/Vol]Ordered By: Kassidy Arriaza on 35-78-0656Uiwgpnu (U) [Mass/Vol]NegativeNegSelect Medical OhioHealth Rehabilitation Hospital - Dublinpecific gravity Test strip (U) [Rel density]Ordered By: Kassidy Arriaza on 25-94-5840Vhnseuzf gravity (U) [Rel density]1.0071.001-1.030Clermont County HospitalUS OB <= 14 weeks fetuson 85-41-4111WO OB <= 14 weeks [facility] [place] [address] [place], [place] [address] Ultrasound Report Signed Patient: Jaz Sanders MR#: [id number] : 1995 Acct:[id number] Age/Sex: 29 / F ADM Date: 10/18/24 Loc: ER Room: Type: [facility] ER Attending Dr: Ordering Provider: [...] Jr., DRenaeORenae 10/18/2024 2:21 PM Dictation Location: [place] [address] Tech: Natalie Haji Transcribed By: MAITE 10/18/24 1421 Dictated By: Sravan Dickinson Jr, DO 10/18/24 1419 Signed By: 10/18/24 1421NoNovant Health Hunters[facility] Physician GroupUnlisted Lab Teston 10-18-2024 ProMRed Wing Hospital and Clinic SystemUrinalysison 74-06-0185Bgwrqlovk,UrineNegativeNormal NegativeThe Count Includes The [facility] Physician GroupComment on above:Order Comment: Name Collection Type:: Clean-Voided MidstreamPerformed By: #### UA, CUU #### [place] [address] USAGlucose Ql (U)NormalNormalNormBaptist Health Bethesda Hospital East Physician GroupComment on above:Order Comment: Name Collection Type:: Clean-Voided MidstreamPerformed By: #### UA, CUU #### [place] [address] USANitrite,UrineNegativeNormalNegativeNch Healthcare System - Downtown Naples Physician GroupComment on above:Order Comment: Name Collection Type:: Clean-Voided MidstreamPerformed By: #### UA, CUU #### [place] [address] USAOccult Blood,UrineNegativeNormalNegativeThe Count Includes The [facility] Physician GroupComment on above:Order Comment: Name Collection Type:: Clean- Voided MidstreamResult Comment: PERFORMED BY: [place] [address] PATHOLOGIST DIGITAL COMMUNICATIONS MANAGER DAMIÁN DOSHI M.D.Performed By: #### UA, CUU #### [place] [address] USAProtein,UrineNegativeNormalNegativeNch Healthcare System - Downtown Naples Physician GroupComment on above:Order Comment: Name Collection Type:: Clean-Voided MidstreamPerformed By: #### UA, CUU #### [place] [address] USASpecificy [place],Urine1.215Ofdvkv0.001-1.030N[facility] Physician GroupComment on above:Order Comment: Name Collection Type:: Clean- Voided MidstreamPerformed By: #### UA, CUU #### [place] [address] USAUrobilinogen,UrineNormalNormalNormalThe Count Includes The [facility] Physician GroupComment on above:Order Comment: Name Collection Type:: Clean- Voided MidstreamPerformed By: #### UA, CUU #### [place] [address] USAUrine Cultureon 73-18-4796Vgpsojlq identified Cx Nom (U) <9,000 colonies/ml mixed bacterial skin contaminants 2 Days PERFORMED BY: [place] [address] PATHOLOGIST DIGITAL COMMUNICATIONS MANAGER DAMIÁN DOSHI M.D.NormalNch Healthcare System - Downtown Naples Physician GroupComment on above: Performed By: #### CAESAR, CUU #### [facility] [address] [place] [address] USAUrine cultureOrdered By: Kassidy Arriaza on 10-18-2024 Bacteria identified Cx Nom (U)2 DaysClermont County Hospital Urobilinogen Test strip (U) [Mass/Vol]Ordered By: Kassidy Arriaza on 10-18-2024 Urobilinogen (U) [Mass/Vol]Normal mg/dLNormalClermont County HospitalpH of Urine by Test stripOrdered By: Kassidy Arriaza on 11-72-6826aM (U)7.0 [pH] Normal5.0-9.0Clermont County HospitalComment on above:Order Comment: Name Collection Type:: Clean-Voided MidstreamPerformed By: #### CAESAR, CUU #### [facility] [address] [place] [address] USAUnlisted Lab Teston 86-94-6103BkvFpdrsv Health SystemBOX TESTon 55-01-7217FDT TEST SENT OUTUNITYNOMT QdunektkxsXOJ0KDIUQQXNB Healthcare HOQ64-72-37GLGX HealthcareUNITY BOX CLINISYACADIA HEALTHCARE HealthcareCoding Summaryon 40-62-5861Ztucwf SummaryHTMLBase 64 DqufcxewAYl2hFo+PGhlYWQ+QO6DJJRnY44neUYhcH2vY0MCQQeUVdraPDILCGfVMpGrvfDeMS7pcSCt ZXJu [file] b2x (more content not included)...[facility] HealthCompliance Drug Analysis, [facility] 64-59-0892Jzfaplf LCFINALInvalid Interpretation [facility] Community HospitalComment on above:Result Comment: TOXASSURE COMP DRUG [...] test is not intended to distinguish between zoksr-1-dgznqnyozagtrvpaaeaj, the predominant form of THC in most herbal or marijuana-based products, and uqyoh-6-fcpmjhiqerxniipsfclo. Lamotrigine PRESENT Acetaminophen PRESENT Test Result Flag Units Ref Range Creatinine 45 mg/dL >=20 Declared Medications: Medication list was not provided. For clinical consultation, please call . ToxAssure, ToxAssure FLEX or MAT drug testin -Technical component - Data analysis performed at [facility], [address] [place] [phone]. [phone]. Clinical Operations Leader César Bains MD. ToxAssure, ToxAssure FLEX or MAT drug testing: -Technical component - Result certification performed at [facility], [address] [place] [phone]. [phone] Clinical Operations Leader César Bains MD. Performed At: [facility] [address] [id number] Brendon Galan [facility] Ph:[phone] By: #### [id number] ####[facility] (DEFAULT)[address] [place] [address] 36478B Urineon 09-28-2024 UrineMixed skin, or urogenital damián. Clinically insignificantNormalTrihealth Bethesda North HospitalComment on above:Performed By: #### [id number] ####[facility] (DEFAULT)[address] [place] [address] 14141EYjHe Screen LCon 09-27-2024 HBsAg Screen LCNegativeInvalid Interpretation CodeNegativeTrihealth Bethesda North Hospital Comment on above:Result Comment: Performed At: [place] [id number] [place], [place] [id number] J Luis Gray PhD Ph:[phone] By: #### [id number], 8413297, 2361220, 67266064, 5171440097, 86434144, 8810027910, [id number]####[facility] (DEFAULT)[address] [place] [address] 69462ZCX 4th Gen Screen w Reflex LCon 66-80-9892OSO Scr 4th Gen LCNon-ReactiveInvalid Interpretation Code Non ReactiveTrihealth Bethesda North HospitalComment on above:Result Comment: HIV-1/HIV-2 antibodies and HIV-1 p24 antigen were NOT detected. There is no laboratory evidence of HIV infection. HIV Negative Performed At: [facility] [address] [place], [place] [id number] J Luis Gray PhD Ph:[phone] By: #### [id number] #### [facility] (DEFAULT) [address] [place] [address]YEI, Rfx Qn RPR/Confirm TP LCon 41-62-6161GDQ LC Non-ReactiveInvalid Interpretation CodeNon ReactiveNewark Hospital HospitalComment on above:Performed By: #### [id number], 4827298, 7127302, 14280762, 6111582478, 77753058, 6717143824, 10309346####[facility] (DEFAULT)[address] [place] [address] 35841Lsdqhmh Antibodies, IgG LCon 43-51-1904Ckljxuy Antibodies, IgG LC2.78 indexInvalid Interpretation CodeImmune >0.99M[facility] hospital HospitalComment on above:Result Comment: Non-immune <0.90 Equivocal 0.90 - 0.99 Immune >0.99 Performed At: [facility] [address] [place], [place] [id number] J Luis Gray PhD Ph:[phone] By: #### 63516086, 7523724, 3392059, 29441034, 5626681031, 20628999, 0807635584, 33767277####[facility] (DEFAULT)[address] [place] [address]19.Auto Diff 1on 94-18-9468Dymw What[employer] %6 %Normal1-12[facility] HospitalComment on above:Performed By: #### 23896226, 0474506, 6491926, 03270151, 2988270436, 65853653, 8481317088, 90642449####[facility] (DEFAULT)[address] [place] [address]17 Baso Abs#0.0 h26Vyipig5.0-0.2[facility] hospital HospitalComment on above:Performed By: #### 51742150, 4276212, 7942489, 73418732, 3065339667, 99762721, 1687369765, 04738625####[facility] (DEFAULT)[address] [place] [address] 13279 Basophils/100 WBC (Bld)0.1 %Low0.2-2.0[facility] HospitalComment on above: Performed By: #### 15030371, 8547948, 0961142, 47107344, 1431428865, 03256398, 0169774955, 70044414####[facility] (DEFAULT)[address] [place] [address] 88836Zth Abs#0.2 o02Efwawt1.0-0.4[facility] health HospitalComment on above: Performed By: #### 03371413, 5535363, 6051950, 55207909, 2380392069, 27298780, 6548174098, 73951566####[facility] (DEFAULT)[address] [place] [address] 06104Ryavtzdpokk/100 WBC (Bld)2.0 %Normal0.9-4.0[facility] Hospital Comment on above:Performed By: #### 08951379, 9513611, 1834281, 46745886, 3419682542, 36037244, 7874793849, 56516432####[facility] (DEFAULT)[address] [place] [address] 80741Vkvpr Abs#2.0 x15Aniqfc8.3-2.9[facility] HospitalComment on above:Performed By: #### 64852515, 4561997, 2861794, 49291151, 4577897674, 79233576, 8878714660, 88173232####[facility] (DEFAULT)[address] [place] [address] 84054Ndqewplrcrh/100 WBC (Bld)26 % Mkoppg04-24Qpzttonj HospitalComment on above:Performed By: #### 60538425, 2794073, 6678942, 39706135, 8838799122, 52025142, 7168813621, 41526723 ####[facility] (DEFAULT)[address] [place] [address] 97347Byec Abs# 0.5 q17Gmbxkv4.0-0.8[facility] North HospitalComment on above:Performed By: #### 88329262, 1992324, 8111447, 19075658, 8646462827, 69026566, 0125399722, 40244955 ####[facility] (DEFAULT)[address] [place] [address] 38967Wddr Abs# 5.1 r91Oyittz8.5-9.2[facility] hospital HospitalComment on above:Performed By: #### 91112029, 7288670, 2125220, 96387802, 4383166070, 58430573, 7295097602, 57820293 ####[facility] (DEFAULT)[address] [place] [address] 25093 Neutrophils/100 WBC (Bld)66 %Yaykgs15-53Diwtmgym HospitalComment on above: Performed By: #### 46225381, 1236429, 9700545, 79552109, 6175507337, 23676244, 1282570236, 33086270####[facility] (DEFAULT)[address] [place] [address] 67930HBEMxvn 12-46-3149QZZ and Rh group Nom (Bld)Hx Check: Not Found Anti-A: 4+ Anti-B: 0 Anti-D: 2+ DCon: NT A1: 0 B: 2+ ABORh Interp: A POSInvalid Interpretation [facility] HospitalComment on above: Performed By: #### 37430307, 4418816, 8881437, 35797763, 1789478796, 22952334, 1735910687, 29785296####[facility] (DEFAULT)[address] [place] [address] 37358VCCS Gelon 03-34-0568IHTB GelNegativeParkview Health Comment on above:Performed By: #### 53312185, 6000099, 6168091, 93757066, 9765909051, 36005775, 3116696323, 16157588####[facility] (DEFAULT)[address] [place] [address] 08711HSA w/ Auto Diffon 59-23-9805Rtdeplsdzhe distribution width (RBC) [Ratio]13.2 %Mmotbm72.5-15.0[facility] HospitalComment on above:Performed By: #### 85050308, 7176948, 3541711, 61095677, 3279948660, 15271424, 2687119352, 91671938#### [facility] (DEFAULT) [address] [place] [address] 17131Djozqoaacm (Bld) [Volume fraction]39.9 %Dsxwdl45.7-40.4 [facility] HospitalComment on above:Performed By: #### 50381783, 1050392, 2314290, 85990523, 3080831367, 77988096, 8931014594, 46935537#### [facility] (DEFAULT) [address] [place] [address] 86853Wurptasxbo (Bld) [Mass/Vol]13.9 g/jMKlffxo90.3-15.9 [facility] HospitalComment on above:Performed By: #### 00182591, 1880246, 3777960, 94518082, 3434270356, 09042272, 8105819385, 36810095#### [facility] (DEFAULT) [address] [place] [address] 11963Bqj Diff?AutoInvalid Interpretation [facility] Comment on above:Performed By: #### 78666544, 5128681, 5695844, 97027592, 2176297129, 50234946, 8363129109, 90892793#### [facility] (DEFAULT) [address] [place] [address] 05746SKT (RBC) [Entitic mass]29 gdFgtzam57-74Dxzkaclh Hospital Comment on above:Performed By: #### 57833957, 6503794, 1562950, 62225942, 5800864987, 89652739, 7178991810, 72075699#### [facility] (DEFAULT) [address] [place] [address] 92762ZVFQ (RBC) [Mass/Vol]35 g/zNUtrnro69-10Xnwatplr Hospital Comment on above:Performed By: #### 49732447, 7701020, 7904900, 57597398, 2502171160, 13547291, 8361282233, 13241522#### [facility] (DEFAULT) [address] [place] [address] 63606EJO (RBC) [Entitic vol]84 nMJzdqud66-082Hyiepobh Hospital Comment on above:Performed By: #### 58340494, 1704220, 7035940, 84708267, 9406998496, 73636080, 2172556221, 66461506#### [facility] (DEFAULT) [address] [place] [address] 27920Tgwnhczv435 m05Siybns202-769Rwyyujoz HospitalComment on above:Performed By: #### 74620392, 2351260, 0568787, 17986823, 2033655389, 68496717, 0849052125, 66945130#### [facility] (DEFAULT) [address] [place] [address] 24469Bajkpdbs mean volume (Bld) [Entitic vol]6.3 fLNormal 6.3-10.2MOhioHealth Arthur G.H. Bing, MD, Cancer CenterComment on above:Performed By: #### 49168533, 6955033, 3260520, 43206507, 7613895838, 40468433, 2907522766, 21005786#### [facility] (DEFAULT) [address] [place] [address] 31889SBF6.76 s94Zzmotr1.70-5.30[facility] HospitalComment on above:Performed By: #### 48398271, 0238289, 8526930, 74077446, 5764636521, 80804481, 2072741751, 61197681#### [facility] (DEFAULT) [address] [place] [address] 07915IRL1.8 e01Ckycid7.5-10.5[facility] HospitalComment on above: Performed By: #### 12339327, 4608645, 1716800, 86498605, 3425937724, 64176630, 0162697451, 56583879#### [facility] (DEFAULT) [address] [place] [address] 67529LQY surface Ag IA on 93-70-8267Jwaggeucw B Surface AntigenNegativeKettering Health Washington TownshipHIV 1+2 Ab+HIV1 p24 Ag IA Qlon 09-26-2024 HIV 1&2 AB/AGNon-ReactiveKettering Health Washington TownshipHgbA1c Standardon 09-26-2024.Hb 13.1Invalid Interpretation [facility] HospitalComment on above:Performed By: #### 92746220, 9073249, 9310971, 88240061, 5666896675, 69653555, 2897248611, 49630360####[facility] (DEFAULT)[address] [place] [address] .Hgb A1c0.38 g/dLInvalid Interpretation [facility] HospitalComment on above: Performed By: #### 41992886, 5877371, 2490878, 33967581, 6558279367, 01198928, 5202683460, 47278130####[facility] (DEFAULT)[address] [place] [address] 48330Qteznan [Mass/Vol]91 mg/dLInvalid Interpretation [facility] HospitalComment on above:Performed By: #### 36357540, 9077925, 5511698, 77258631, 1111109842, 16191816, 2630881760, 46602344####[facility] (DEFAULT)[address] [place] [address] 61137PpI8k (Bld) [Mass fraction]4.8 % 4.0 - 6.0 %[facility] HospitalComment on above:Performed By: #### 81410450, 3659700, 8247022, 80700305, 6555632570, 09650254, 2748940763, 83528930 ####[facility] (DEFAULT)[address] [place], [place] [address]Uu Panel Informationon 00-54-8957SblFzmhpq Salad Labs SystemProvider Orderson 09-26-2024 Provider [id number]#1.00OTGTIFFParkview HealthRubella IGG immune statuson 34-95-6830Eaymita immune IgG2.78ProAshtabula General Hospital SystemT. pallidum IgG+IgM IA Ql (S)on 34-22-9419IgvhrjgrOle-Reactive ProMRed Wing Hospital and Clinic SystemType and screenon 18-25-9441Lrq/Rh(D)PositiveProEastpointe Hospital IXI-PlayUltrasound - Officeon 14-04-2118GmuZimovs Health SystemHCG ( test) Ql (U)on 23-00-4156Pzomokvbqcwuac and review of laboratory resultsAbnormalNOMS HealthcarePreg Test, UrPositiveNegativeNOMS HealthcareNOMS HealthcareUS OB TRANSVAGINALon 46-00-2518OD OB TRANSVAGINALEXAM: US OB TRANSVAGINAL HISTORY: Dating, [...] 08:26:46 AM [facility] TeleradiologyNormalNot AvailableComment on above:Order Comment: US OB TRANSVAGINAL No LMP recorded.Urinalysis macro (dipstick) panel (U)on 29-35-7159Islmmkomb, UA NegativeNegative - 4(70) +++ mg/dLNOMS HealthcareBlood, [...] HealthcareUrobilinogen, UA0.20.2 - 12 mg/dLNOMS HealthcareNOMS HealthcareCNNURSEon 67-07-5326XZTGTTT Nurse Visit (SHERLEYIAV) JAZ SANDERS ([id number]) 1995 F Date Time Provider Department 09/03/24 10:[address] [place]J TORREYV During your visit today, we recorded the following information about you: Manisha Weaver APRN.ASSOCIATE PROFESSOR OF THEATRE 09/03/2024 5:42 PM Signed Jaz Sanders here [...] 2024 5:39 PM Referring Provider: MELODIE HERNANDEZ [[id number]] Allergies As of Date: 09/03/2024 (Not on File) Date Reviewed: 08/20/2024 Reviewed by: Melodie Hernandez APRN.CNP - Fully Assessed Visit Diagnosis:Early stage of (HCC) [Z34.90] Order(s):OBSTETRIC ULTRASOUND [facility] [[id number]] Order #: [id number]. #:[id number]: 1 Prescriptions as of 09/03/2024 - buPROPion [...] (None) Encounter Status:Closed by BRADFORD DOSS on 09/03/24NoMercy Health Kings Mills Hospitalamination level ultrasoundon 09-03-2024 Indication Viability, Repeat Impression - Single, live, intrauterine . - An intrauterine gestational sac with a yolk sac and pole is present. - Platinum rump length measurement is consistent with the [...] Lt ovary: Visualized Performed By: Nina Farnsworth; [facility] Read By: Bradford Doss M.D.MATERNAL MEDICINEAdena Regional Medical CenterRadiology Study observation (narrative)[facility] Regional Medical CenterCNNURSEon 47-21-7564PIALTUOHfdxr Visit (REIBD) JAZ SANDERS ([id number]) 1995 F Date Time Provider Department 08/28/24 11:10 AM US TECH 2 [facility] BE[facility] REIBD During your visit today, we recorded the following information about you: Melodie Hernandez, RESEARCH METHODOLOGIST.ASSOCIATE PROFESSOR OF THEATRE 08/30/2024 4:36 PM Signed Jaz Sanders is [...] scan next week as scheduled Melodie Hernandez APRN.ASSOCIATE PROFESSOR OF THEATRE Mikey Torres MD 08/30/2024 4:36 PM Signed Viable ratliff IUP Size equal Date. Plan: patient to follow up with her ob for care. Stacy Banuelos MD Referring Provider: MELODIE HERNANDEZ [[id number]] Allergies As of Date: 08/28/2024 (Not on File) Date Reviewed: 08/20/2024 Reviewed by: Melodie Hernandez APRN.ASSOCIATE PROFESSOR OF THEATRE - Fully Assessed Visit Diagnosis: resulting from assisted reproductive technology in first trimester ([facility]) [O09.811] Order(s):OBSTETRIC ULTRASOUND [facility] [[id number]] Order #: [id number]. #:[id number]: 1 Prescriptions as of 08/30/2024 - buPROPion [...] (None) Encounter Status:Closed by MIKEY HENLEY on 08/30/24Kindred Healthcareamination level ultrasoundon 08-28-2024 Indication Viability Impression - Single, live, intrauterine . - An intrauterine gestational sac with a yolk sac and embryo is present. - Platinum rump length measurement is consistent with the [...] Chavez RDMS Read By: Mikey Torres M.D.MATERNAL MEDICINEAdena Regional Medical Center Radiology Study observation (narrative)Adena Regional Medical CenterCNPNon 41-80-9361XRAB Telephone (REIBD) JAZ SANDERS ([id number]) 1995 F Date Time Provider Department 08/24/24 [...] Date Reviewed: 08/20/2024 Reviewed by: Melodie Hernandez, MELY.ASSOCIATE PROFESSOR OF THEATRE - Fully Assessed Reason for Visit: Patient [...] (None) Encounter Status:Closed by ARMINDA WARD on 08/24/24[facility] Hospitalmanisha 63-25-8742YJGAIriozimkm (REIBD) JAZ SANDERS ([id number]) 1995 F Date Time Provider Department 08/23/24 MELODIE HERNANDEZ During your visit today, we recorded the following information about you: Angella Mccarthy 08/23/2024 10:39 AM Signed Name: Jaz Sanders called today. : 1995 (home) [phone] (cell) Reason for call: pt called today informing the nurse she has been experiencing pain of level 4 from 1-10. Pt has been experiencing pain for 2 day. 5 weeks today. The patients preferred pharmacy has been captured for this encounter? [facility]ella [employer] Business Development Officer David, Melodie Keene APRN.CNP 08/24/2024 5:58 PM [...] slot. Call to patient needed: no [employer] Business Development Officer, Lana 08/25/2024 8:37 AM Signed Pt [...] Order(s):OBSTETRIC ULTRASOUND [facility] [[id number]] Order #: [id number]: 1 FUTURE Prescriptions as of 08/27/2024 - [...] (None) Encounter Status:Closed by MELODIE HERNANDEZ on 08/24/24[facility] Summaryon 12-95-0274Rcgmqf SummaryMLBase 64 KsqalkorIKo9yMt+PGhlYWQ+BO8NLMDpF27rwHGchW2gN2WSWTpFLpdgHKYPWAaESxJezmBaYV1irNOe ZXJu [file] b2x (more content not included)...[facility] HospitalCoding Summaryon 12-17-8298Pqzatr SummaryHTMLBase 64 IrromazvYDu1wPb+PGhlYWQ+HF5ZLSPyY58khRPseS0mK4TADWyXSaepEZUXEXaOMeNwvaNvYR8gsXWy ZXJu [file] b2x (more content not included)...[facility] HospitalCoding SummaryMLBase 64 YvhqigdoUJu9pKh+PGhlYWQ+UD2QKLJvZ93rcOPqnK2aB2JPKUzIZujlGHKUJNnZYbJbufHdBK2otTTn ZXJu [file] b2x (more content not included)...[facility] HospitalProvider Orderson 65-01-8866Wdnsrseh [id number]#1.00OTGTIFF [facility] HealthhCG Quantitativeon 88-83-5567mNO Tnivdqhyhbjk719.7 mIU/mL High0.0-0.6MOhioHealth Arthur G.H. Bing, MD, Cancer CenterComment on above:Result Comment: Post-Menopausal Reference Range is: 0.1-11.6 mIU/mLPerformed By: #### [id number] #### [facility] (DEFAULT) [address] [place] [address] [id number] 89-66-8561CFJJDnmwbsnax (REIBD) JAZ SANDERS ([id number]) 1995 F Date Time Provider Department 08/16/24 MELODIE HERNANDEZ During your visit today, we recorded the following information about you: Angella Mccarthy 08/16/2024 12:31 PM Signed Name: Jaz Lynda called today. : 1995 (home) [phone] (cell) Reason for call: pt called that she got positive test, she has been having having cramping since last night , it happens every hours for couple minutes. The patients preferred pharmacy has been captured for this encounter? yes Angella [employer] Business Development Officer Daniel Hanna APRN.CNP 08/16/2024 5:28 PM Signed Called patient back to phone number listed in [facility]-no answer. Lm for patient to look out for Vint message. Daniel Hanna APRN.JARROD August 16, 2024 [...] Status:Closed by DANIEL HANNA on 08/16/24[facility] HospitalSabra 76-84-8484LDHTGofrunyay (REIBD) JAZ SANDERS ([id number]) 1995 F Date Time Provider Department 08/15/24 [...] Date Reviewed: 05/09/2024 Reviewed by: Melodie Hernandez, RESEARCH METHODOLOGIST.ASSOCIATE PROFESSOR OF THEATRE - Fully Assessed Reason for Visit: Patient [...] (None) Encounter Status:Closed by MELODIE HERNANDEZ on 08/15/24[facility] HealthProvider Orderson 48-40-6829Tsixyvld Orders [id number]#1.00OTGTBluffton HospitalhCG Quantitativeon 33-77-2055dJA Xkyykidwwpgp902.6 mIU/mLHigh0.0-0.6MOhioHealth Arthur G.H. Bing, MD, Cancer CenterComment on above:Result Comment: Post-Menopausal Reference Range is: 0.1-11.6 mIU/mLPerformed By: #### [id number] #### [facility] (DEFAULT) [address] [place] [address] [id number] 75-18-4475JFKJKufqxfgfg (REIBD) JAZ SANDERS ([id number]) 1995 F Date Time Provider Department 08/13/24 MELODIE HERNANDEZ During your visit today, we recorded the following information about you: Arminda Ward RN 08/13/2024 11:19 AM Signed Letters sent. sent to patient Arminda Ward RN August 13, 2024 11:19 AM Allergies As of Date: 08/13/2024 (Not on File) Date Reviewed: 05/09/2024 Reviewed by: Melodie Hernandez, RESEARCH METHODOLOGIST.ASSOCIATE PROFESSOR OF THEATRE - Fully Assessed Reason for Visit: Wants hcg levels sent to [facility] / lives far away [Other] [...] Text Encounter Status:Closed by ARMINDA WARD on 08/13/24[facility] HealthProvider Ord[place] 59-23-4166Beyhpqpm Orders [id number]#1.00OTProMedica Toledo HospitalhCG Quantitativeon 83-34-5577bNR Waeottucwpex53.6 mIU/mLJon Michael Moore Trauma Center0.0-0.6MOhioHealth Arthur [facility] Cancer Center Comment on above:Result Comment: Post-Menopausal Reference Range is: 0.1-11.6 mIU/mLPerformed By: #### [id number] #### [facility] (DEFAULT) [address] [place] [address] [id number] 38-89-7450WQDEXcmvct Visit (REIBD) JAZ SANDERS ([id number]) 1995 F Date Time Provider Department 07/31/24 3:00 PM MELODIE HERNANDEZ REARLET During your visit today, we recorded the following information about you: Last Period 07/19/24 Mustapha Tello MA 07/31/2024 3:12 PM Addendum Patient verified by full name and date of . Jaz Sanders is here today for an IUI. LMP: 07/19/2024 Natural cycle IUI Timed With: Ovulation Predictor Kit , Date: 07/30/2024 Watch Commander offered: Patient declines Mustapha Tello MA July 31, 2024 3:12 PM Dominguez Barry 09/05/2024 10:45 PM Signed IUI specimen released to provider Dominguez Barry July 31, 2024 3:24 PM Dominguez Barry 09/05/2024 10:45 PM Signed IUI Cryobio Donor # [id number] Pre: frozen washed specimen Post: 82 M/ml, [...] 3. Cycle Day: Last menstrual period: 07/19/2024 [place] Protocol: UNIVERSAL PROTOCOL / SAFETY CHECKLIST Procedure [...] Status:Closed by MELODIE HERNANDEZ on 09/05/24[facility] HospitalOVOffice Visit (ANDRBE) JAZ SANDERS ([id number]) 1995 F Date Time Provider Department 07/31/24 2:30 PM ANDROLOGY INBOUND SALES MANAGER [facility] During your visit today, we recorded the following information about you: Dominguez Barry 07/31/2024 3:26 PM Signed Thaw for IUI. Dominguez Barry Referring Provider: SELF [[id number]] Allergies As of Date: 07/31/2024 (Not on File) Date Reviewed: 05/09/2024 Reviewed by: Melodie Hernandez, RESEARCH METHODOLOGIST.ASSOCIATE PROFESSOR OF THEATRE - Fully Assessed Primary Visit Diagnosis:Procreative management [...] (None) Encounter Status:Closed by DOMINGUEZ BARRY on 07/31/24[facility] HealthCNPNon 75-98-0896ALLCXnfmdtsux (REIBD) JAZ SANDERS ([id number]) 1995 F Date Time Provider Department 07/30/24 MELODIE HERNANDEZ During your visit today, we recorded the following information about you: Sathyamanisha Manisha 07/30/2024 3:16 PM Signed N- ivf Pt has questions regarding IUI Melodie Hernandez APRN.CNP 07/30/2024 6:00 PM Signed patient's OPK today was dark but not positive Plan: test again tomorrow. if darker, schedule IUI on Tuesday if bouffant curtain machine tender than today, schedule IUI the same day Melodie Hernandez APRN.CNP July 30, 2024 6:00 PM Allergies As of Date: 07/30/2024 (Not on File) Date Reviewed: 05/09/2024 Reviewed by: Melodie Hernandez APRN.CNP - Fully Assessed Reason for Visit: Patient Question [4677] Prescriptions as of 07/30/2024 - naltrexone 50 [...] (None) Encounter Status:Closed by MELODIE HERNANDEZ on 07/30/24[facility] Rehabilitationmanisha 02-40-1856DHCVNcigsf Visit (REIBD) JAZ SANDERS ([id number]) 1995 F Date Time Provider Department 07/07/24 [...] Cycle Day: 14 Last menstrual period: 06/24/2024 [place] Protocol: UNIVERSAL PROTOCOL / SAFETY CHECKLIST Procedure [...] Gonzalez 07/19/2024 7:50 AM Signed IUI Cryobio #[id number] Washed frozen specimen Post: 31 m/ml, 77% Insem#: 10.8 million Referring Provider: DANIEL HANNA [[id number]] Allergies As of Date: 07/07/2024 (Not on File) Date Reviewed: 05/09/2024 Reviewed by: Melodie Hernandez APRN.ASSOCIATE PROFESSOR OF THEATRE - Fully Assessed Primary Visit Diagnosis:Encounter for [...] (None) Encounter Status:Closed by MIKEY HENLEY on 07/19/24[facility] Centerice [facility] (ANDRBE) JAZ SANDERS ([id number]) 1995 F Date Time Provider Department 07/07/24 9:30 AM ANDROLOGY INBOUND [facility]ES [facility] During your visit today, we recorded the following information about you: Nichelle Gonzalez 07/07/2024 9:41 AM Signed Thaw for IUI Nichelle Gonzalez Referring Provider: DANIEL HANNA [[id number]] Allergies As of Date: 07/07/2024 (Not on File) Date Reviewed: 05/09/2024 Reviewed by: Melodie Hernandez APRN.ASSOCIATE PROFESSOR OF THEATRE - Fully Assessed Primary Visit Diagnosis:Procreative management [...] Status:Closed by NICHELLE GONZALEZ on 07/07/24[facility] HospitalSabra 29-42-0151TVHZAbdktejrl (REIBD) JAZ SANDERS ([id number]) 1995 F Date Time Provider Department 07/06/24 [...] Date Reviewed: 05/09/2024 Reviewed by: Melodie Hernandez APRN.ASSOCIATE PROFESSOR OF THEATRE - Fully Assessed Reason for Visit: Patient [...] (None) Encounter Status:Closed by BECKI ISAACS on 07/06/24[facility] HealthXavier 45-05-9021TIEAKrkwdadqe (REIBD) JAZ SANDERS ([id number]) 1995 F Date Time Provider Department 07/05/24 [...] Date Reviewed: 05/09/2024 Reviewed by: Melodie Hernandez APRN.ASSOCIATE PROFESSOR OF THEATRE - Fully Assessed Reason for Visit: re [...] (None) Encounter Status:Closed by ARMINDA WARD on 07/06/24[facility] 78-37-2299DPWQZuumopvcy (REIBD) JAZ SANDERS ([id number]) 1995 F Date Time Provider Department 07/04/24 [...] Signed Ignacio Guy MD to Jamel Skylar [place] 07/05/24 9:05 AM Cervicalpolyp does not need to be removed. [facility] for her next IUI. Dr. Duran [...] (None) Encounter Status:Closed by MELODIE HERNANDEZ on 07/04/24[facility]2024 Indication infertility testing Impression [...] Aceves RDMS Read By: Ignacio Guy M.D.MATERNAL MEDICINEAdena Regional Medical CenterRadiology Study observation (narrative)[facility] Medical CenterCNPNon 99-96-6537OWCYOxlgnrwzf (REIBD) JAZ SANDERS ([id number]) 1995 F Date Time Provider Department 06/29/24 [...] us before iui this weekend Melodie Hernandez APRN.ASSOCIATE PROFESSOR OF THEATRE 07/03/2024 12:34 PM Signed unable to reach, left message to return my call eMlodie Hernandez APRN.ASSOCIATE PROFESSOR OF THEATRE July 03, 2024 12:33 PM Patricia Snow 08/13/2024 8:52 AM Signed Pos preg test Arminda Ward RN 08/13/2024 9:17 AM Signed See TE encounter dated 08/13 Arminda Ward RN August 13, 2024 9:16 AM Allergies As of Date: 06/29/2024 (Not on File) Date Reviewed: 05/09/2024 Reviewed by: Melodie Hernandez APRN.ASSOCIATE PROFESSOR OF THEATRE - Fully Assessed Reason for Visit: 06/09 [...] (None) Encounter Status:Closed by ARMINDA WARD on 08/13/24[facility] 94-77-5622IXULYsqgho Visit (REIBD) JAZ SANDERS ([id number]) 1995 F Date Time Provider Department 06/09/24 11:00 AM IGNACIO GUY During your visit today, we recorded the following information about you: Nichelle Gonzalze 06/09/2024 12:30 PM Signed IUI specimen released to provider Nichelle Gonzalez June 09, 2024 11:24 AM Nichelle Gonzalez 06/09/2024 12:30 PM Signed IUI Cryobio #: [id number] Washed frozen sample Post: 42 m/ml, 74% [...] Cycle Day: 13 Last menstrual period: 05/28/2024 [place] Protocol: UNIVERSAL PROTOCOL / SAFETY CHECKLIST Procedure [...] was discussed with the patient or authorized motor vehicle field representative. The patient or authorized motor vehicle field representative has agreed to proceed with the sensitive examination. (Sensitive examination includes inspection and/or palpation of the breasts, pelvis, prostate and anorectal regions) Patient declined wastewater process engineer. Vidhi Sheldon MD IUI IUI Date: [...] TIME: 12:01 PM Referring Provider: DANIEL HANNA [[id number]] Allergies As of Date: 06/09/2024 (Not on File) Date Reviewed: 05/09/2024 Reviewed by: Melodie Hernandez APRN.ASSOCIATE PROFESSOR OF THEATRE - Fully Assessed Primary Visit Diagnosis:Female infertility [...] (None) Encounter Status:Closed by IGNACIO GUY on 06/09/24[facility] Visit (ANDRBE) JAZ SANDERS ([id number]) 1995 F Date Time Provider Department 06/09/24 10:30 AM ANDROLOGY INBOUND SALES MANAGER [facility] During your visit today, we recorded the following information about you: Nichelle Gonzalez 06/09/2024 11:48 AM Signed Thaw for IUI Nichelle Gonzalez Referring Provider: DANIEL HANNA [[id number]] Allergies As of Date: 06/09/2024 (Not on File) Date Reviewed: 05/09/2024 Reviewed by: Melodie Hernandez APRN.ASSOCIATE PROFESSOR OF THEATRE - Fully Assessed Primary Visit Diagnosis:Procreative management [...] (None) Encounter Status:Closed by NICHELLE GONZALEZ on 06/09/24[facility] Summaryon 89-28-6719Fmgonw SummarySTEWARD HEALTH CARE SYSTEMBase 64 XtfhloulFQm4fGv+PGhlYWQ+LY8EWKDgU14qnKGmnC8kU7BCFVxRRtugQKYNMKgDUoIoxsIyPQ9onAQk ZXJu [file] b2x (more content not included)...[facility] HealthProgesterone LCon 46-17-1988Vsegsgtqbvek LC7.6 ng/mLInvalid Interpretation [facility] Comment on above:Result Comment: Follicular phase 0.1 - 0.9 Luteal phase 1.8 - 23.9 Ovulation phase 0.1 - 12.0 First trimester 11.0 - 44.3 Second trimester 25.4 - 83.3 Third trimester 58.7 - 214.0 Postmenopausal 0.0 - 0.1 Performed At: [facility] [address] [place], [place] [id number] J Luis Gray PhD Ph:[phone] By: #### [id number] ####[facility] (DEFAULT)[address] [place] [address]Vagnwxbs Orderson 22-37-4084Kkwalgek [id number]#1.00OTGrant HospitalPhysical Therapy Noteon 11-33-4859Wcowtncq Therapy Note [id number]#1.00OTProMedica Toledo Hospital 25([place])D3 [facility] Hospitalon 834867-ifljhbeknmkwgr D3 [Mass/Vol]28.8 ng/mLLow 31.0-80.0Av HospitalComment on above:Order Comment: Specimen Type: BLOOD SPECIMEN Ordering Facility: Address: [address] [place], [place] [address]Result Comment: Classification of 25 [place] Vitamin D status: Deficiency/Insufficiency: < or = 30 ng/ml. Sufficiency/Optimal Levels: 31-80 ng/mL Toxicity: > 100 ng/mL. Test performed by chemiluminescent immunoassay.Performed By: #### 90210-1 #### [facility] CLIA [id number] [address] [place] [address] [place] [facility] CAMPUSC. trachomatis+N. gonorrhoeae DNA AC+probe Ql (Unsp spec)on 04-02-2024. trachomatis rRNA AC+probe Ql (Unsp spec)Not detectedNormalNot detectedAv HospitalComment on above:Order Comment: Specimen Type: BLOOD SPECIMEN Ordering Facility: Address: [address] [place], [place] [address]Performed By: #### 90166-2 #### [facility] CLIA [id number] [address] [place] [address] [place]. gonorrhoeae rRNA AC+probe Ql (Unsp spec)Not detectedNormalNot detectedAv HospitalComment on above:Order Comment: Specimen Type: BLOOD SPECIMEN Ordering Facility: Address: [address] [place], [place] [address]Performed By: #### 89893-9 #### [facility] CLIA [id number] [address] [place] [address] [place] AMERICACARRIER SCREEN, EXPANDEDon 52-10-9279EXDURAX SCREEN RESULTSView results in Scanned Documents link when available.NormalAv HospitalComment on above:Order Comment: Specimen Type: BLOOD SPECIMEN Ordering Facility: Address: [address] [place], [place] [address]Performed By: #### 60471-2 #### [facility] CLIA [id number] [address] [place] [address] [place] AMERICACMV IgG Qnon 05-54-8459CLV IGG QUALNegativeNormalNegativeAv HospitalComment on above:Order Comment: Specimen Type: BLOOD SPECIMEN Ordering Facility: Address: [address] [place], [place] [address]Result Comment: No serological evidence of past exposure to Cytomegalovirus. Cannot exclude recent infection if the specimen collected within 4-6 weeks after infection.Performed By: #### 1989-3RIO, 7852-7, 7853-5, VZVG2 #### [facility] CLIA [id number] [address] [place] [address] [place] AMERICACMV IgG SerPl-aCncon 91-98-9430HFT IgG Qn<0.20NormalAvon HospitalComment on above:Order Comment: Specimen Type: BLOOD SPECIMEN Ordering Facility: Address: [address] [place], [place] [address]Result Comment: The magnitude of the measured result is not indicative of the amount of antibody present. U/mL values are interpreted as follows: Negative <0.6 Equivocal 0.6 to <0.70 Positive >=0.70Performed By: #### 1989-3RIO, 7852-7, 7853-5, VZVG2 #### [facility] CLIA [id number] [address] [place] [address] [place] AMERICACMV IgM Qnon 62-33-8652ZJT IGM, QUALNegativeNormalNegativeAvon HospitalComment on above:Order Comment: Specimen Type: BLOOD SPECIMEN Ordering Facility: Address: [address] [place], [place] [address]Result Comment: No serological evidence of recent exposure to Cytomegalovirus.Performed By: #### 1989-3, RUBIGG, 7852-7, 7853-5, VZVG2 #### [facility] CLIA [id number] [address] [place] [address] [place] AMERICAHBV core Ab Ser Qlon 95-67-3773GED core Ab Ql (S)NegativeNormalNegativeAvon HospitalComment on above: Order Comment: Specimen Type: BLOOD SPECIMEN Ordering Facility: Address: [address] [place], [place] [address]Result Comment: No evidence of current or past infection with Hepatitis B virus. Should recent infection be suspected, repeat testing may be considered 3-4 weeks after this draw.Performed By: #### 65711-0, 5195-3, 84984-3, 94170-2 #### [facility] CLIA [id number] [address] [place] [address] [place] AMERICAHBV surface Ag Ser Qlon 62-80-3684CQL surface Ag Ql (S)NegativeNormalNegativeAvon HospitalComment on above:Order Comment: Specimen Type: BLOOD SPECIMEN Ordering Facility: Address: [address] [place], [place] [address]Performed By: #### 83947-8, 5195-3, 34534-5, 11876-4 #### [facility] CLIA [id number] [address] [place] [address] [place] AMERICAHCV Ab Ser Qlon 04-02-2024 HCV Ab Ql (S)NegativeNormalNegativeAvon HospitalComment on above:Order Comment: Specimen Type: BLOOD SPECIMEN Ordering Facility: Address: [address] [place], [place] [address]Result Comment: The result suggests no evidence of active infection with Hepatitis C virus. Should recent infection be suspected, repeat testing may be considered 4-6 weeks after this draw. Performed By: #### 44679-3 #### [facility] CLIA [id number] [address] [place] [address] [place] AMERICAHIV 1+2 Ab IA Qlon 93-64-1259HJT 1 and 2 Ab IA.rapid Nom (S/P/Bld)NormalOrem Community HospitalComment on above:Order Comment: Specimen Type: BLOOD SPECIMEN Ordering Facility: Address: [address] [place], [place] [address]Result Comment: Test not indicated. Performed By: #### 68023-7, 5195-3, 04993-6, 41812-9 #### [facility] CLIA [id number] [address] [place] [address] STATES OF AMERICAHIV 1+2 Ab+HIV1 p24 Ag IA Ql Non-ReactiveNormalNonreactiveOrem Community HospitalComment on above:Order Comment: Specimen Type: BLOOD SPECIMEN Ordering Facility: Address: [address] [place], [place] [address]Performed By: #### 01306-8, 5195-3, 83605-2, 48297-8 #### [facility] CLIA [id number] [address] [place] [address] STATES OF AMERICAHIV immunoassay testing algorithm interpretation (S/P/Bld) [Interp][facility] Samaritan HospitalComment on above: Order Comment: Specimen Type: BLOOD SPECIMEN Ordering Facility: Address: [address] [place], [place] [address]Result Comment: No evidence of HIV- 1 or HIV-2 infection. Should recent infection be suspected, repeat testing may be considered 2-3 weeks after this draw. [place] Rev. Code 3701.243(E): This information has been [...] HIV test results or diagnoses.Performed By: #### 87551-3, 5195-3, 41639-1, 19802-2 #### [facility] CLIA [id number] [address] [place] [address] [place] XNWEDRDIoJ7o (Bld)on 04-02-2024 Average glucose Estimated from glycated hemoglobin (Bld) [Mass/Vol]85 mg/dL NormalAv HospitalComment on above:Order Comment: Specimen Type: BLOOD SPECIMEN Ordering Facility: Address: [address] [place], [place] [address]Result Comment: eAG: (Estimated average glucose) is a calculated value from HgbA1c and is motor vehicle field representative of the average blood glucose level in the last 2-3 month period.Performed By: #### 60291-0 #### [facility] CLIA [id number] [address] [place] [address] [place] OF JTKVMREWuP6f (Bld) [Mass fraction] 4.6 %Normal4.3-5.6Avon HospitalComment on above:Order Comment: Specimen Type: BLOOD SPECIMEN Ordering Facility: Address: [address] [place], [place] [address]Result Comment: [place] Diabetes [employer] guidelines indicate that patients with HgbA1c in the range 5.7-6.4% are at increased risk for development of diabetes, and intervention by lifestyle modification may be beneficial. HgbA1c greater or equal to 6.5% is considered diagnostic of diabetes.Performed By: #### 83093-5 #### [facility] CLIA [id number] [address] [place], [place] [address] [place] OF AMERICARUBELLA IGG ANTIBODYon 76-53-8405INXNKJW IGG AB, QUALPositiveNormalPositiveAv HospitalComment on above:Order Comment: Specimen Type: BLOOD SPECIMEN Ordering Facility: Address: [address] [place], [place] [address]Result Comment: The result suggests recent or past exposure to Rubella virus or history of Rubella vaccination. Positive result may also be seen due to presence of passively-transferred antibodies. Please correlate with patient's history.Performed By: #### 1989-3, RUBIGG, 7852-7, 7853-5, VZVG2 #### [facility] CLIA [id number] [address] [place] [address] [place] AMERICAReagin and Treponema pallidum IgG and IgM [Interp]on 04-02-2024T. pallidum IgG+IgM IA Ql (S) Non-ReactiveNormalNonreactiveOrem Community HospitalComment on above:Order Comment: Specimen Type: BLOOD SPECIMEN Ordering Facility: Address: [address] [place], [place] [address]Performed By: #### 38427-5, 5195-3, 95403-2, 55477-7 #### [facility] CLIA [id number] [address] [place] [address] [place] AMERICAReagin+T pallidum IgG+IgM SerPl-Impon 02-04-2247Gvmzki and Treponema pallidum IgG and IgM [Interp]Cannot exclude recent Treponemal infection if specimen collected within 7-10 days after appearance of suspect lesions or 2-3 weeks after an exposure. Clinical correlation is required.NormalSomerset HospitalComment on above:Order Comment: Specimen Type: BLOOD SPECIMEN Ordering Facility: Address: [address] [place], [place] [address]Performed By: #### 69237-2, 5195-3, 85863-4, 54986-8 #### [facility] CLIA [id number] [address] [place] [address] [place] OF AMERICATYPE + SCREEN PRENATALon 37-57-8595OJJYCqstcvVfzc HospitalComment on above:Order Comment: Specimen Type: BLOOD SPECIMEN Ordering Facility: Address: [address] [place], [place] [address]Performed By: #### TSPN #### [facility] [place] [id number] [address] [place] [address] [facility] DOTHANRh Nom (Bld)[facility] Comment on above:Order Comment: Specimen Type: BLOOD SPECIMEN Ordering Facility: Address: [address] [place], [place] [address]Performed By: #### TSPN #### [facility] [place] [id number] [address] [place] [address] [facility] CAMPUSTYPE AND SCREEN PACVOCKEET85/19/2024 23:59[facility]aritan HospitalComment on above:Order Comment: Specimen Type: BLOOD SPECIMEN Ordering Facility: Address: [address] [place], [place] [address]Performed By: #### TSPN #### [facility] [id number] [address] [place] [address] [facility] OF DOTHANVARICELLA ZOSTER IGGon 04-02-2024 VARICELLA ZOSTER IGG, QUALPositiveNormalPositiveSomerset HospitalComment on above: Order Comment: Specimen Type: BLOOD SPECIMEN Ordering Facility: Address: [address] [place], [place] [address]Result Comment: The result suggests recent or past exposure to Varicella-Zoster virus or chickenpoxvaccination or zoster vaccination. Positive result may also be seen due to presence of passively-transferred antibodies. Please correlate with patient's history. Performed By: #### 56767-9 #### [facility] CLIA [id number] [address] [place] [address] STATES OF AMERICACoding Summaryon 03-20-2024 Coding SummaryMLBase 64 AkukftxzQPg4rGv+PGhlYWQ+JF2MJXNvD89syWKdjW3yY2OLJFeBRonhKQIRAFnFWuFeszEgAC9jyFHv ZXJu [file] JSc (more content not included)...[facility] HospitalProvider Orderson 68-91-6220Waqmwpkk [id number]#1.00OTGTIFF [facility].Auto Diff 1on 58-71-3364Wxpb [place] %3 %Normal1-12[facility] HospitalComment on above:Performed By: #### [id number], [id number], [id number] #### [facility] (DEFAULT) [address] [place] [address] 26142Lddn Abs#0.0 h87Uexcls0.0-0.2[facility] HospitalComment on above:Performed By: #### [id number], [id number], [id number] #### [facility] (DEFAULT) [address] [place] [address] 10396Elopbkywc/100 WBC (Bld)0.3 %Normal0.2-2.0[facility] Comment on above:Performed By: #### [id number], [id number], 9409554 #### [facility] (DEFAULT) [address] [place] [address] 57348Gfb Abs#0.0 c75Vrljpq8.0-0.4[facility] HospitalComment on above:Performed By: #### [id number], [id number], [id number] #### [facility] (DEFAULT) [address] [place] [address] 84491Rmdwixegpka/100 WBC (Bld)0.1 %Low0.9-4.0[facility] Hospital Comment on above:Performed By: #### [id number], 7657686, 3326534 #### [facility] (DEFAULT) [address] [place] [address] 64230Jvksx Abs#1.5 r29Atotjk7.3-2.9[facility] HospitalComment on above:Performed By: #### [id number], 8161523, 2129430 #### [facility] (DEFAULT) [address] [place] [address] 84203Oesomrjeznb/100 WBC (Bld)16 %Ktwgvg76-47Xojjszoe Hospital Comment on above:Performed By: #### [id number], 0678022, 7743839 #### [facility] (DEFAULT) [address] [place] [address] 37256Nvws Abs#0.3 x82Ycgjwp0.0-0.8[facility] HospitalComment on above:Performed By: #### [id number], [id number], [id number] #### [facility] (DEFAULT) [address] [place] [address] 81599Zrck Abs#7.8 b29Mxlyfn9.5-9.2[facility] HospitalComment on above:Performed By: #### [id number], [id number], [id number] #### [facility] (DEFAULT) [address] [place] [address] 88130Ylyrgyxhdjl/100 WBC (Bld)81 %Qgpmns08-23Sjonfskn Hospital Comment on above:Performed By: #### [id number], [id number], 4288722 #### [facility] (DEFAULT) [address] [place] [address] 07994RWM w/ Auto Diffon 52-87-6560Wyvgfvpmlgq distribution width (RBC) [Ratio]13.9 %Mzssgi50.5-15.0[facility] HospitalComment on above: Performed By: #### [id number], [id number], 4935805 #### [facility] (DEFAULT) [address] [place] [address] 88146Wmjcwjriqe (Bld) [Volume fraction]45.3 %High33.7-40.4 [facility] HospitalComment on above:Performed By: #### [id number], 1169259, 4718629 #### [facility] (DEFAULT) [address] [place] [address] 41697Iyreimobbm (Bld) [Mass/Vol]15.5 g/bSXgjwkz24.3-15.9 [facility] HospitalComment on above:Performed By: #### [id number], [id number], [id number] #### [facility] (DEFAULT) [address] [place] [address] 37500Tax Diff?AutoInvalid Interpretation CodeTrihealth Bethesda North Hospital Comment on above:Performed By: #### [id number], [id number], [id number] #### [facility] (DEFAULT) [address] [place] [address] 45638ZFL (RBC) [Entitic mass]29 xjLnwjzp85-56Ihbdqhue Hospital Comment on above:Performed By: #### [id number], 2102935, 4853409 #### [facility] (DEFAULT) [address] [place] [address] 64282DUGJ (RBC) [Mass/Vol]34 g/sDSjwqps07-19Kwyeteyd Hospital Comment on above:Performed By: #### [id number], 0696036, 2752576 #### [facility] (DEFAULT) [address] [place] [address] 49549DBY (RBC) [Entitic vol]86 cBMrpgfi44-638Drtkxrit Hospital Comment on above:Performed By: #### [id number], [id number], 4585717 #### [facility] (DEFAULT) [address] [place] [address] 82920Boeasfad309 n60Lvsexb522-369Zckjeyxd HospitalComment on above:Performed By: #### [id number], 2050553, [id number] #### [facility] (DEFAULT) [address] [place] [address] 91308Ujhrozeh mean volume (Bld) [Entitic vol]6.8 fLNormal 6.3-10.2[facility] HospitalComment on above:Performed By: #### [id number], 6655082, 4815329 #### [facility] (DEFAULT) [address] [place] [address] 23279XIP1.28 o80Irhygn6.70-5.30[facility] HospitalComment on above:Performed By: #### [id number], 4657526, 5996142 #### [facility] (DEFAULT) [address] [place] [address] 89182JYY2.6 v86Ahixwn5.5-10.5[facility] HospitalComment on above: Performed By: #### [id number], 4952473, 6213909 #### [facility] (DEFAULT) [address] [place] [address] 03832Bxwezxaexx 14-87-9483Aycpyknb [Mass/Vol]20.6 ng/mLNormal 12.0-150.0[facility] HospitalComment on above:Performed By: #### [id number], 0105331, 9045054 #### [facility]DEFAULT[facility] [address] [place] [address] 71609Gubz Levelon 06-89-9181Zugg [Mass/Vol]61.0 ug/dLNormal 28.0-170.0[facility] HospitalComment on above:Performed By: #### [id number] ####[facility] (DEFAULT)[address] [place] [address] [id number] ID: [id number] Author: IGNACIO GUY MD Service: ? Author [...] for three cycles. They will meet with SOLDER[employer] REPAIR to review the IUI checklist and sign consents. I spent a total of 45 minutes on the date of the service which included preparing to see the patient, ffdq-ct-uaop patient care, completing clinical documentation, counseling and educating the patient/family/caregiver, and ordering medications, tests, or procedures. 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 They will meet with [employer] REPAIR to review the IUI checklist and sign consents. I spent a total of 45 minutes on the date of the service which included preparing to see the patient, eqsk-yv-kuhr patient care, com (more content not included)...NormalHenry County HospitalP,APTIMA HPV,AGE GDLNon 02[birth year]28[birth year]24 AGE GDLN ACOG TESTINGNote.NOMS HealthcareComment on above:TESTS RESULT FLAG UNITS REF RANGE LAB Clinician Provided Cytology Information Source.............Cervix;Endocervix No. of containers..01 ThinPrep Vial Age Algo ACOG Ezequiel... 01 FLAG LEGEND: L-Low Normal,H-High Normal,LL-Alert Low,HH-Alert High <-Panic Low,>-Panic High,A-Abnormal,AA-Critical Abnormal Performed at: 01 =G [facility] [place] [address] Dagmar Love MD, IGP, RFX APTIMA HPV ASCUNote.NOMS HealthcareComment on above:TESTS RESULT FLAG UNITS REF RANGE LAB DIAGNOSIS: 02 NEGATIVE FOR INTRAEPITHELIAL LESION OR MALIGNANCY. Specimen adequacy: 02 Satisfactory for evaluation. Endocervical and/or squamous metaplastic cells (endocervical component) are present. Performed by: 02 Edel Sewell, Dining Room Server ([facility]) . 02 Note: Note 02 [...] High,A-Abnormal,AA-Critical Abnormal Performed at: 02 [facility] [address] [place] [address] Dagmar Love MD, Performed at: =G - [facility] [address], [place] [id number] Clinical Operations Leader: Dagmar Love MD, Phone: [phone] Performed at: - [address] [id number] Clinical Operations Leader: Dagmar Love MD, Phone: [phone] BRUSH-SPATULA CERVIX ENDOCERVIX [facility] Summaryon 25-84-9866Dhrjph SummaryMLBase 64 EetvzbylIWq6cYn+PGhlYWQ+AO6DUJYkW85isGAisB5qD4TPDMnOSuxmJCHBQHeBEsGbhyZoRR6beGUb ZXJu [file] [facility] (more content not included)...[facility] papilloma virus 16+18+31+33+35+39+45+51+52+56+58+59+66+68 DNA [Presence] in Addi 49-64-4621FNB 16+18+31+33+35+39+45+51+52+56+58+59+66+68 DNA Probe+sig amp Ql (Cvx)Human papilloma virus 16+18+31+33+35+39+45+51+52+56+58+59+66+68 DNA [Presence] in Cer. [facility] HospitalComment on above:TESTS RESULT FLAG UNITS REF RANGE LAB DIAGNOSIS: 02 NEGATIVE FOR INTRAEPITHELIAL LESION OR MALIGNANCY.Specimen adequacy: 02 Satisfactory forevaluation. Endocervical and/or squamous metaplastic cells (endocervical component) are present.Performed by: 02 Edel Sewell, Dining Room Server ([facility]). 02Note: Note 02 The Pap [...] <-Panic Low,>- Panic High,A-Abnormal,AA-Critical Abnormal Performed at:[address] [address] Dagmar Love MD, Fxvkldzcd at: = - [facility] [id number] Director: Dagmar Love MD, Phone: [phone] at: [facility] [id number] Director: Dagmar Love MD, Phone: [phone] Panel Informationon 16-44-6699Ijrmbbtpg Lab Test Patient AgeNotcolt.[facility] HospitalComment on above:TESTS RESULT FLAG UNITS REF RANGE LAB Clinician Provided Cytology Information Source.............Cervix;Endocervix No. of containers..01 ThinPrep VialAge Olafo HUMAOG Ezequiel... FLAG LEGEND: L-Low Normal,H-High Normal,LL-Alert Low,HH-Alert High <-Panic Low,>-Panic High,A- Abnormal,AA-Critical Abnormal Performed a t:01 =G [address] [address] Dagmar Love MD, .Auto Diff 1on 06-25-9083Azyh [place] %6 %Normal1-12 [facility] HospitalComment on above:Performed By: #### [id number] #### [facility] (DEFAULT) [address] [place] [address] 14799Uicc Abs#0.0 p46Fmqytf9.0-0.2[facility] HospitalComment on above:Performed By: #### [id number] #### [facility] (DEFAULT) [address] [place] [address] 76471Dfwgisluo/100 WBC (Bld)0.3 %Normal0.2-2.0[facility] Comment on above:Performed By: #### [id number] #### [facility] (DEFAULT) [address] [place] [address] 08228Zsc Abs#0.2 d71Mrfoox2.0-0.4[facility] HospitalComment on above:Performed By: #### [id number] #### [facility] (DEFAULT) [address] [place] [address] 29928Csazzmlebek/100 WBC (Bld)3.4 %Normal0.9-4.0[facility] HospitalComment on above:Performed By: #### [id number] #### [facility] (DEFAULT) [address] [place] [address] 26030Ibjkn Abs#2.4 n49Froifb2.3-2.9[facility] HospitalComment on above:Performed By: #### [id number] #### [facility] (DEFAULT) [address] [place] [address] 92828Xviqdkkkhem/100 WBC (Bld)34 %Nqgtmb26-44Rrkycejs Hospital Comment on above:Performed By: #### [id number] #### [facility] (DEFAULT) [address] [place] [address] 21675Tnyk Abs#0.4 c78Aasvna4.0-0.8[facility] HospitalComment on above:Performed By: #### [id number] #### [facility] (DEFAULT) [address] [place] [address] 97630Yvgy Abs#4.0 k19Yqfpcj0.5-9.2[facility] HospitalComment on above:Performed By: #### [id number] #### [facility] (DEFAULT) [address] [place] [address] 15558Grqxoeqztew/100 WBC (Bld)56 %Kxmlfq13-66Uqxlfrqb Hospital Comment on above:Performed By: #### [id number] #### [facility] (DEFAULT) [address] [place] [address] 91973CON w/ Auto Diffon 16-68-1990Vlnezqxegjj distribution width (RBC) [Ratio]14.0 %Joymcd35.5-15.0[facility] HospitalComment on above: Performed By: #### [id number] #### [facility] (DEFAULT) [address] [place] [address] 86345Osofnzxsin (Bld) [Volume fraction]41.7 %High33.7-40.4 [facility] HospitalComment on above:Performed By: #### [id number] #### [facility] (DEFAULT) [address] [place] [address] 50395Pmrxcxrmrp (Bld) [Mass/Vol]14.1 g/pVQzvyuy96.3-15.9 [facility] HospitalComment on above:Performed By: #### [id number] #### [facility] (DEFAULT) [address] [place] [address] 14468Owu Diff?AutoInvalid Interpretation CodeTrihealth [facility] Comment on above:Performed By: #### [id number] #### [facility] (DEFAULT) [address] [place] [address] 65542IWH (RBC) [Entitic mass]29 xbRgbiwz16-57Orpqrlzk Hospital Comment on above:Performed By: #### [id number] #### [facility] (DEFAULT) [address] [place] [address] 68119CGKH (RBC) [Mass/Vol]34 g/uYXugnjg09-36Ieniwbjd Hospital Comment on above:Performed By: #### [id number] #### [facility] (DEFAULT) [address] [place] [address] 50531INP (RBC) [Entitic vol]86 kYGpkaec60-806Oebwfysm Hospital Comment on above:Performed By: #### [id number] #### [facility] (DEFAULT) [address] [place] [address] 76639Grualywp722 g49Ywpwbi711-151Kdwxxfvr HospitalComment on above:Performed By: #### [id number] #### [facility] (DEFAULT) [address] [place] [address] 37321Fmjsaqxr mean volume (Bld) [Entitic vol]6.8 fLNormal 6.3-10.2[facility] HospitalComment on above:Performed By: #### [id number] #### [facility] (DEFAULT) [address] [place] [address] 35508GGI4.84 q63Fsmzhi6.70-5.30[facility] HospitalComment on above:Performed By: #### [id number] #### [facility] (DEFAULT) [address] [place] [address] 73449ELX3.1 e04Gugtab6.5-10.5[facility] HospitalComment on above: Performed By: #### [id number] #### [facility] (DEFAULT) [address] [place] [address] 63915Iknajpesgl 71-76-1700Xtcnezjo [Mass/Vol]15.8 ng/mLNormal 12.0-150.0[facility] HospitalComment on above:Performed By: #### [id number], 6479452, 5298942 #### [facility] (DEFAULT) [address] [place] [address] 35470Tqsr Profileon 13-59-7041Ndwk [Mass/Vol]72.0 ug/dLNormal 28.0-170.0[facility] HospitalComment on above:Performed By: #### [id number], [id number], 8724492 #### [facility] (DEFAULT) [address] [place] [address] 98934Nsgp Sat19 %Jas58-23Wwhezqvu HospitalComment on above: Performed By: #### [id number], 6924090, 6249034 #### [facility] (DEFAULT) [address] [place] [address] 89743ASFR240 mcg/iCByqitp403-231Twrwcykx HospitalComment on above:Performed By: #### [id number], 6970375, 8901897 #### [facility] (DEFAULT) [address] [place] [address] 37612Vpfdcrwszjs [Mass/Vol]274.6 mg/oHFuoarz092.0-382.0[facility] HospitalComment on above:Performed By: #### [id number], 0594321, 2754539 #### [facility] (DEFAULT) [address] [place] [address] 20852Syqmmc Summaryon 93-47-4139Teudsi SummaryMLBase 64 AdyecooyTMy9uGt+PGhlYWQ+AC8TQSNlI21xjQTmqP3jO7VRNZmOUkseNWAPPPmTEsMdkpPuWQ5weAOt ZXJu [file] c (more content not included)...[facility] HealthAmphetamine Screen Ql (U)Ordered By: Andry Lacy on 31-51-3538Zxeozinysgky Ql (U)Amphetamines screenNegativeMount St. Mary Hospital CenterAmphetamines Ql (U)Negative NegativeClermont County HospitalBarbiturates [Presence] in Urine by Screen methodOrdered By: Andry Lacy on 68-50-1941Qrmzanoqrwnu Screen Ql (U) NegativeNegativeClermont County HospitalBarbiturates Screen Ql (U) Barbiturates [Presence] in Urine by Screen methodNegSCCI Hospital LimaBenzodiazepines Screen Ql (U)Ordered By: Andry Lacy on 61-52-2252Wljunbqzdpjpnqt Ql (U)PositiveHighNegSCCI Hospital LimaBenzodiazepines Ql (U)Benzodiazepines [Presence] in Urine by Screen method HighNegSCCI Hospital LimaBenzoylecgonine [Presence] in Urine by Screen methodOrdered By: Andry Lacy on 09-96-4361Fesxgluhpzvwtxv Screen Ql (U)NegativeNegSCCI Hospital LimaBenzoylecgonine Screen Ql (U)Benzoylecgonine [Presence] in Urine by Screen methodNegSCCI Hospital LimaCannabinoids [Presence] in Urine by Screen methodOrdered By: Andry Lacy on 32-23-0592Epotxkvuvrds Screen Ql (U)PositiveHighOhiohealth Arthur G.H. Bing, Md, Cancer CenterComment on above:These are unconfirmed results and should not be used for legal purposes. Drug Cut-Off Concentration: AMPH 1000 ng/mL LUIS ANTONIO 200 ng/mL JOHN 200 ng/mL COCM 300 ng/mL OP 300 ng/mL PCP 25 ng/mL THC 20 ng/mLCannabinoids Screen Ql (U)Cannabinoids [Presence] in Urine by Screen methodHighNegSCCI Hospital LimaComment on above:These are unconfirmed results and should not be used for legal purposes. Drug Cut-Off Concentration: AMPH 1000 ng/mL LUIS ANTONIO 200 ng/mL JOHN 200 ng/mL COCM 300 ng/mL OP 300 ng/mL PCP 25 ng/mL THC 20 ng/mLHCG ( test) IA.rapid Ql (U)Ordered By: Andry Lacy on 70-22-7866EMR ( test) Ql (U)NegativeClermont County HospitalHCG ( test) Ql (U)Urine human chorionic gonadotropin (hCG) detection by immunoassayClermont County Hospital Opiates [Presence] in Urine by Screen methodOrdered By: Andry Lacy on 98-20-0785Uamlxfi Screen Ql (U)NegativeNegativeClermont County Hospital Opiates Screen Ql (U)Opiates [Presence] in Urine by Screen methodNegative [facility] HospitalPhencyclidine Screen Ql (U)Ordered By: Andry Lacy on 84-59-6272Gkjocyifbyarv Ql (U)NegativeNegativeClermont County HospitalPhencyclidine Ql (U)Phencyclidine [Presence] in Urine by Screen methodNegativeClermont County HospitalAlanine aminotransferase [Enzymatic activity/volume] in Serum or PlasmaOrdered By: Romeo Santana on 20-50-1768KZZ [Catalytic activity/Vol]14 U/L7-52Cl[facility] HospitalAlbumin [Mass/volume] in Serum or Plasma by Bromocresol green (BCG) dye binding methoOrdered By: Romeo Santana on 26-46-1095Ykotqtr BCG dye [Mass/Vol]4.6 g/dL3.5-5.7FSumma Health Akron CampusAlkaline phosphatase [Enzymatic activity/volume] in Serum or PlasmaOrdered By: Romeo Santana on 51-21-6407XHC [Catalytic activity/Vol]41 U/W28-125YernuhcwgClermont County HospitalAspartate aminotransferase [Enzymatic activity/volume] in Serum or PlasmaOrdered By: Romeo Santana on 13-66-9722OTU [Catalytic activity/Vol]13 U/J82-91XegqcilncClermont County HospitalBasophils Auto (Bld) [#/Vol]Ordered By: Romeo Santana on 11-28-2023 Basophils (Bld) [#/Vol]0.0 10*3/uL0.0-0.2FSumma Health [facility] Campus Basophils/100 WBC Auto (Bld)Ordered By: Romeo Santana on 24-00-1701Ytyrsofbq/100 WBC (Bld)0.3 %.[facility] HospitalBilirubin.total [Mass/volume] in Serum or PlasmaOrdered By: Romeo Santana on 49-95-6612Pcropckmf [Mass/Vol]0.5 mg/dL0.3-1.0[facility] HospitalCalcium [Mass/volume] in Serum or PlasmaOrdered By: Romeo Santana on 04-01-6899Ytrpejx [Mass/Vol]9.4 mg/dL8.6-10.3 [facility] HospitalCarbon dioxide, total [Moles/volume] in Serum or PlasmaOrdered By: Romeo Santana on 00-59-1262TK8 [Moles/Vol]27.8 mmol/L 21.0-31.0[facility] HospitalChloride [Moles/volume] in Serum or PlasmaOrdered By: Romeo Santana on 36-92-3192Sriepked [Moles/Vol]106 mmol/L98-107 [facility] HospitalCreatinine [Mass/volume] in Serum or Plasma Ordered By: Romeo Santana on 90-24-9604Agjyucvfuk [Mass/Vol]0.62 mg/dL0.60-1.20 [facility] HospitalEosinophils Auto (Bld) [#/Vol]Ordered By: Romeo Santana on 92-33-0783Sagtypecnov (Bld) [#/Vol]0.2 10*3/uL0.0-0.45[facility] HospitalEosinophils/100 WBC Auto (Bld)Ordered By: Romeo Santana on 56-73-5499Lyegubiyesk/100 WBC (Bld)3.5 %.[facility] Erythrocyte distribution width Auto (RBC) [Ratio]Ordered By: Romeo Santana on 53-90-2444Tubtbfssjrg distribution width (RBC) [Ratio]14.0 %11.9-15.3FSumma Health Akron CampusGlobulin Calc (S) [Mass/Vol]Ordered By: Romeo Santana on 75-62-5898Siokuels (S) [Mass/Vol]2.0 g/dLClermont County Hospital Glucose [Mass/volume] in Serum or PlasmaOrdered By: Romeo Santana on 11-28-2023 Glucose [Mass/Vol]76 mg/cG22-772HjsrvhtfbClermont County HospitalHematocrit Auto (Bld) [Volume fraction]Ordered By: Romeo Santana on 19-07-8294Bpvjuzrtpo (Bld) [Volume fraction]40.1 %34.0-46.4FSumma Health Akron CampusHemoglobin [Mass/volume] in BloodOrdered By: Romeo Santana on 78-01-4184Bpkoeocvxj (Bld) [Mass/Vol]13.6 g/dL11.8-15.4FSumma Health Akron CampusLeukocytes [#/volume] corrected for nucleated erythrocytes in Blood by Automated coun Ordered By: Romeo Santana on 10-88-9280WGC corrected for nucl RBC Auto (Bld) [#/Vol]6.4 10*3/uL3.8-11.6FSumma Health Akron CampusLymphocytes Auto (Bld) [#/Vol]Ordered By: Romeo Santana on 49-33-4672Trbsxtcnylr (Bld) [#/Vol]2.4 10*3/uL1.00-4.8Cl[facility] County HospitalLymphocytes/100 WBC Auto (Bld) Ordered By: Romeo Santana on 15-84-7482Usagtqlaqyu/100 WBC (Bld)38.3 %.[facility] HospitalMCH Auto (RBC) [Entitic mass]Ordered By: Romeo Santana on 70-35-4393QOS (RBC) [Entitic mass]29.3 pg24.7-34.3FSumma Health Akron CampusMCHC Auto (RBC) [Mass/Vol]Ordered By: Romeo Santana on 86-29-8543SMUM (RBC) [Mass/Vol]33.8 g/dL32.0-35.0Cl[facility] HospitalMCV Auto (RBC) [Entitic vol]Ordered By: Romeo Santana on 26-46-0529MYG (RBC) [Entitic vol]86.7 lK53-845NhcvbmztmClermont County HospitalMonocytes Auto (Bld) [#/Vol]Ordered By: Romeo Santana on 50-20-9164Difuqulka (Bld) [#/Vol]0.4 10*3/uL0.0-0.8[facility] HospitalMonocytes/100 WBC Auto (Bld)Ordered By: Romeo Santana on 52-59-1194Llwsqqszf/100 WBC (Bld)5.8 %.[facility] Neutrophils Auto (Bld) [#/Vol]Ordered By: Romeo Santana on 59-11-0331Cnjynawznxl (Bld) [#/Vol]3.3 10*3/uL1.8-7.7FSumma Health Akron CampusNeutrophils/100 WBC Auto (Bld)Ordered By: Romeo Santana on 33-70-3278Tjmrmhhzmbq/100 WBC (Bld) 52.1 %.[facility] HospitalNo Panel InformationOrdered By: Romeo Santana on 14-41-7896Igjlzecqx GFR (CKD-EPI)> 60.0 mL/MinClermont County HospitalPharmacy Creatinine Clearance (ChemN/AFSumma Health Akron CampusNucleated erythrocytes [Presence] in Blood by Automated countOrdered By: Romeo Santana on 13-46-2429Lhefndfzp RBC Auto Ql (Bld)0.0 /100{WBC}0-0.5FSumma Health Akron CampusPlatelet mean volume Auto (Bld) [Entitic vol]Ordered By: Romeo Santana on 13-77-4896Ghbywkvt mean volume (Bld) [Entitic vol]6.8 fL6.3-10.7 [facility] HospitalPlatelets Auto (Bld) [#/Vol]Ordered By: Romeo Santana on 95-69-0944Qyvevmhvv (Bld) [#/Vol]159 10*3/hT571-291PfbsbrhmzClermont County HospitalPotassium [Moles/volume] in Serum or PlasmaOrdered By: Romeo Santana on 84-23-4852Oempjabqm [Moles/Vol]4.2 mmol/L3.5-5.1FSumma Health Akron CampusProtein [Mass/volume] in Serum or PlasmaOrdered By: Romeo Santana on 12-75-7280Igsjwvl [Mass/Vol]6.6 g/dL6.4-8.9[facility] RBC Auto (Bld) [#/Vol]Ordered By: Romeo Santana on 89-45-3318EVH (Bld) [#/Vol] 4.63 10*6/uL3.60-5.00[facility] Andersonerum or plasma albumin/globulin mass ratioOrdered By: Romeo Santana on 11-28-2023 Albumin/Globulin [Mass ratio]2.3 {ratio}[facility] Andersonerum or plasma anion gap determinationOrdered By: Romeo Santana on 88-16-5097Wexre gap [Moles/Vol]10.4 mmol/L6.0-15.0[facility] - Andersonodium [Moles/volume] in Serum or PlasmaOrdered By: Romeo Santana on 25-46-8084Rsfqzr [Moles/Vol]140 mmol/E435-474IgjptdbtzClermont County HospitalUrea nitrogen [Mass/volume] in Serum or PlasmaOrdered By: Romeo Santana on 85-21-2513Dzzb nitrogen [Mass/Vol]7 mg/dL7-25[facility] HospitalWBC Auto (Bld) [#/Vol]Ordered By: Romeo Santana on 78-47-8249SGN (Bld) [#/Vol]6.4 10*3/uL 3.8-11.6FSumma Health Akron CampusCoding Summaryon 50-14-7016Jqtdqw SummaryHTMLBase 64 RkrqfvlwTSg1rTz+PGhlYWQ+XN5NEKPxJ74iuOCrwS3tX0DOIUxENdtpRMVQUThONgQsvlFiPF4lbVOy ZXJu [file] b3J (more content not included)...NormalMagruder HospitalCoding SummaryHTMLBase 64 WkzkycnaZSb8xBs+PGhlYWQ+IG4ROJHvS37loYWmfK3fF5UAWTkXCxwsGAXATGgGFzZpdrGeOF9qzBJk ZXJu [file] b3J (more content not included)...[facility] HospitalProvider Orderson 98-95-2561Nzinjxdp [id number]#1.00OTGTIFF Parkview HealthChlamydia/GC Amplification LCon 52-14-5735Zavpgzqvh trachomatis, AC LCNegativeInvalid Interpretation CodeNegRegency Hospital [facility] Comment on above:Performed By: #### [id number] #### [facility] (DEFAULT) [address] [place] [address] 43302Hcgjofjdm gonorrhoeae, AC LCNegativeInvalid Interpretation CodeNegRegency Hospital Cleveland EastComment on above:Result Comment: Performed At: =G Lab[address] [id number] Ivan Calvin MD Ph:[phone] By: #### [id number] #### [facility] (DEFAULT) [address] [place] [address] 23363Gknjsad Formson 88-31-8854Mwpczkg Forms [id number]#1.00OTGTIFFParkview HealthED Note-Nursingon 98-42-0611GG Note-NursingFluconazole 150mg tab called into [facility] Patient contacted and notified of the results of her culture and the prescription that was sent forher. Instructions on how to take the medication was given, patient verbalized understanding [facility].Auto Diff 1on 49-46-9799Dkgd [place] %9 %Normal1-12[facility] Comment on above:Performed By: #### [id number], [id number], [id number] #### [facility] (DEFAULT) [address] [place] [address] 50991Zhpu Abs#0.0 q71Zzebiz9.0-0.2[facility] HospitalComment on above:Performed By: #### [id number], [id number], [id number] #### [facility] (DEFAULT) [address] [place] [address] 81763Bvhsxrxvm/100 WBC (Bld)0.2 %Normal0.2-2.0[facility] Comment on above:Performed By: #### [id number], 5456001, [id number] #### [facility] (DEFAULT) [address] [place] [address] 19092Iag Abs#0.3 p26Evxzdc3.0-0.4[facility] HospitalComment on above:Performed By: #### [id number], [id number], [id number] #### [facility] (DEFAULT) [address] [place] [address] 50003Tlgqhgcztkn/100 WBC (Bld)9.0 %High0.9-4.0[facility] Comment on above:Performed By: #### [id number], 8472779, [id number] #### [facility] (DEFAULT) [address] [place] [address] 37532Oukec Abs#0.4 k22Ypu0.3-2.9[facility] HospitalComment on above:Performed By: #### [id number], [id number], [id number] #### [facility] (DEFAULT) [address] [place] [address] 20707Pqakoitlvlm/100 WBC (Bld)12 %Jdn11-20UfsntbmvTrihealth Bethesda North Hospital Comment on above:Performed By: #### [id number], [id number], [id number] #### [facility] (DEFAULT) [address] [place] [address] 29855Dotc Abs#0.3 v19Excwvx8.0-0.8[facility] HospitalComment on above:Performed By: #### [id number], [id number], [id number] #### [facility] (DEFAULT) [address] [place] [address] 43428Lfbw Abs#2.4 a15Jnzgza2.5-9.2[facility] HospitalComment on above:Performed By: #### [id number], [id number], [id number] #### [facility] (DEFAULT) [address] [place] [address] 45086Aynwraepdta/100 WBC (Bld)70 %Uinxyx13-46Fphdcgol Hospital Comment on above:Performed By: #### [id number], [id number], 8249035 #### [facility] (DEFAULT) [address] [place] [address] 03382M Genitalon 11-02-2023 GenitalHeavy growth of Yeast No CARLOS performed on this organism No growth of GC at 3 days. 4+ Gram Positive Rods Few Yeast No WBC's seen. Gram Negative Diplococci not seen.Parkview HealthComment on above: Performed By: #### [id number] #### [facility] (DEFAULT) [address] [place] [address] 24723GUS w/ Auto Diffon 69-99-8487Fubkwzutrba distribution width (RBC) [Ratio]13.7 %Zflacx88.5-15.0[facility] HospitalComment on above: Performed By: #### [id number], [id number], [id number] #### [facility] (DEFAULT) [address] [place], [place] [address]Hematocrit (Bld) [Volume fraction]40.5 %High33.7-40.4 [facility] HospitalComment on above:Performed By: #### [id number], 6019943, [id number] #### [facility] (DEFAULT) [address] [place], [place] [address]Hemoglobin (Bld) [Mass/Vol]13.7 g/wGZswbio88.3-15.9 [facility] HospitalComment on above:Performed By: #### [id number], 0309055, 0614841 #### [facility] (DEFAULT) [address] [place] [address] 55495Fqi Diff?AutoInvalid Interpretation [facility] Comment on above:Performed By: #### [id number], [id number], 8500960 #### [facility] (DEFAULT) [address] [place] [address] 99995XGI (RBC) [Entitic mass]29 ujOwvdsg80-63Dbhshjjr Hospital Comment on above:Performed By: #### [id number], 9624225, 6957213 #### [facility] (DEFAULT) [address] [place] [address] 20279LEHX (RBC) [Mass/Vol]34 g/eOGdugvs04-12Eunmkxur Hospital Comment on above:Performed By: #### [id number], 9710764, 7695995 #### [facility] (DEFAULT) [address] [place] [address] 81668NWO (RBC) [Entitic vol]85 lLVduffp55-539Nxlnqqmf Hospital Comment on above:Performed By: #### [id number], 2124016, 2964340 #### [facility] (DEFAULT) [address] [place] [address] 96738Oxjbmpwg514 g57Dui827-616Dfwblvgt HospitalComment on above:Performed By: #### [id number], 8056334, [id number] #### [facility] (DEFAULT) [address] [place] [address] 57797Ogpacrwp mean volume (Bld) [Entitic vol]7.0 fLNormal 6.3-10.2[facility] HospitalComment on above:Performed By: #### [id number], 6379283, [id number] #### [facility] (DEFAULT) [address] [place] [address] 07790EUV0.74 y24Ouepjn4.70-5.30[facility] HospitalComment on above:Performed By: #### [id number], 6711811, 9428674 #### [facility] (DEFAULT) [address] [place] [address] 24439RSY3.5 e87Crajbg6.5-10.5[facility] HospitalComment on above: Performed By: #### [id number], 7006498, 8676996 #### [facility] (DEFAULT) [address] [place] [address] 51647ALO Standardon 22-73-1275iMUK Non AA>60Invalid Interpretation [facility] HospitalComment on above:Performed By: #### [id number], 7609220, 2110803 #### [facility] (DEFAULT) [address] [place] [address] 59611cMMG AA>60Invalid Interpretation [facility] Comment on above:Performed By: #### [id number], 2276304, 4285460 #### [facility] (DEFAULT) [address] [place] [address] 73606Ljwmxgz [Mass/Vol]4.1 g/dLNormal3.5-5.0[facility] Comment on above:Performed By: #### [id number], [id number], 5266728 #### [facility] (DEFAULT) [address] [place] [address] 90598Hqnclcm/Globulin [Mass ratio]1.7 {ratio}Normal1.4-2.6 [facility] HospitalComment on above:Performed By: #### [id number], 6690957, 5630408 #### [facility] (DEFAULT) [address] [place] [address] 26252Tyt Phos40 IU/SRgpgwf07-40Kywmwvdc HospitalComment on above:Performed By: #### [id number], 2937657, 5412524 #### [facility] (DEFAULT) [address] [place] [address] 89465ZVB [Catalytic activity/Vol]20.0 U/NSycsnr84.0-54.0 [facility] HospitalComment on above:Performed By: #### [id number], 4895927, 3466848 #### [facility] (DEFAULT) [address] [place] [address] 45865Ftghg gap [Moles/Vol]9.5 mmol/LNormal5.0-19.0[facility] HospitalComment on above:Performed By: #### [id number], 6041845, 7018065 #### [facility] (DEFAULT) [address] [place] [address] 99476ACI [Catalytic activity/Vol]19 U/PGfznvh58-65Rvitibmr HospitalComment on above:Performed By: #### [id number], 5792564, 7608355 #### [facility] (DEFAULT) [address] [place] [address] 63489Zkcn Total0.7 mg/dLNormal0.3-1.2[facility] HospitalComment on above:Performed By: #### [id number], 9284317, 1592072 #### [facility] (DEFAULT) [address] [place] [address] 93842Vzikfkq [Mass/Vol]8.4 mg/dLLow8.9-10.3[facility] Hospital Comment on above:Performed By: #### [id number], 0446141, 7952451 #### [facility] (DEFAULT) [address] [place] [address] 91239Pmobwpck [Moles/Vol]109 mmol/OXhxmkv604-266Rrnqopqx HospitalComment on above:Performed By: #### [id number], 5976596, 7509848 #### [facility] (DEFAULT) [address] [place] [address] 38038MV4 [Moles/Vol]21 mmol/CXvrqbk24-64Bnpuvsoo Hospital Comment on above:Performed By: #### [id number], 4879324, 4068419 #### [facility] (DEFAULT) [address] [place] [address] 59550Piywiawtsq [Mass/Vol]0.71 mg/dLNormal0.60-1.30[facility] HospitalComment on above:Performed By: #### [id number], 4519691, 6133191 #### [facility] (DEFAULT) [address] [place] [address] 82104Beegnkpf (S) [Mass/Vol]2.4 g/dLNormal1.5-4.3MOhioHealth Arthur G.H. Bing, MD, Cancer CenterComment on above:Performed By: #### [id number], 2038890, 5996920 #### [facility] (DEFAULT) [address] [place] [address] 64988Rmyqiix [Mass/Vol]95.0 mg/hEFvchaa08.0-118.0[facility] HospitalComment on above:Performed By: #### [id number], 8182308, 7893268 #### [facility] (DEFAULT) [address] [place] [address] 80328Tzrklkovmi800 mOsm/LInvalid Interpretation CodeNewark Hospital HospitalComment on above:Performed By: #### [id number], 6692727, 5363722 #### [facility] (DEFAULT) [address] [place] [address] 91052Tilbveohz [Moles/Vol]3.5 mmol/LLow3.6-5.1[facility] Hospital Comment on above:Performed By: #### [id number], 5018947, 5552292 #### [facility] (DEFAULT) [address] [place] [address] 48590Jwjkohy [Mass/Vol]6.5 g/dLNormal6.5-8.1MOhioHealth [facility] Comment on above:Performed By: #### [id number], 0326931, 3096329 #### [facility] (DEFAULT[facility] [address] [place] [address] 97149Lfcvyl [Moles/Vol]136.0 mmol/RRnqfwn104.0-144.0[facility] HospitalComment on above:Performed By: #### [id number], 1042377, 4876142 #### [facility] (DEFAULT) [address] [place] [address] 72474Varn nitrogen [Mass/Vol]7 mg/dLLow8-26[facility] Comment on above:Performed By: #### [id number], 1906044, 9959856 #### [facility] (DEFAULT) [address] [place] [address] 05663Qpif nitrogen/Creatinine [Mass ratio]9.8 mg/mgNormal 4.6-16.2MOhioHealth Arthur G.H. Bing, MD, Cancer CenterComment on above:Performed By: #### [id number], 6842686, 0253766 #### [facility] (DEFAULT) [address] [place] [address] 44835NS Abdomen/Pelvis w/ Contraston 78-66-0713VI Abdomen/Pelvis w/ ContrastEXAMINATION: CT Abdomen/Pelvis w/ Contrast, [...] Monteiro DO 11/02/23 3:37 pm Technologist: DEYVI [facility]FFYC[facility] Clinical Summaryon 47-90-4245NC [facility] SummaryC[facility] [address] [place] [address] [id number] ED Clinical Summary PERSON INFORMATION Name: JAZ SANDERS Age: 28 Years Sex: FEMALE : 1995 MRN: Acct#: Visit Reason: Abdominal pain; Nausea; FLANK/HIP PAIN, FEVER Arrival: 11/02/2023 07:57:28 Discharge: 11/02/2023 13:31:00 LOS: 000 05:34 Check In: 11/02/2023 07:57:28 Checkout:11/02/2023 13:31:00 [facility] [address] PCP: Amanda Ford CNP PROVIDER INFORMATION Provider [...] Follow-Up: With: Address: When: Amanda Ford CNP [address] [place] [address] Within 3 to 5 days DIAGNOSIS: 1:Hip pain Patient Understands: Yes - Patient/family/caregiver verbalizes understanding of instructions given Comment:[facility] Patient Summaryon 51-56-5649QS Patient Summary [facility] - Emergency Department [address] [place] [address] PATIENT DISCHARGE INSTRUCTIONS Patient Information Name: JAZ SANDERS Age: 28 Years Date of : 1995 Reason For Visit: Abdominal pain; Nausea; FLANK/HIP PAIN, FEVER Arrival Time: 11/02/2023 07:57:28 Primary Care Physician: Amanda Ford CNP Attending Physician: Narda Phillips MD Comment: Visit Diagnosis: Diagnoses This Visit Abdominal pain ([id number]) Hip pain (M25.559) Nausea (GZf1KVB8cOfnDjNCl6rxte) The [facility] is open Tuesday through Tuesday from [...] alcohol and/or drug addiction problems; contact the [facility] 08/11 Crisis Hotline -Text 3IEPN lo [phone]. If you received any narcotics, sedation, or [...] Address: When: Amanda Ford CNP [facility] [place] [address] Within 3 to 5 days Medication Information: The exam and treatment you received today in the [facility] Emergency Department were for an urgent problem and are not intended as complete care. It is important for you to follow up with a doctor, nurse practitioner, or physician?s title assistant for ongoing care. If your symptoms [...] so we can reach you if necessary. [facility] Emergency Department has provided you with a complete list of medications post discharge. Please inform your ic designer standard cells/provider of your visit and for further instruction on these medications. Any specific questions regarding your chronic medications and dosages should be discussed with your primary care physician(s) and/or pharmacist. New Medications [facility] [address] [place], [place] [id number], [phone] cyclobenzaprine (cyclobenzaprine 10 mg oral tablet) 1 [...] Refills: 0. lidocaine topic (more content not included)...Parkview HealthExtra Green on 97-79-0354Kqkr CollectedYesInvalid Interpretation [facility] Comment on above:Performed By: #### [id number], [id number], [id number] #### [facility] (DEFAULT) [address] [place] [address] 38597Qzgdjosyj Test Urine 1on 11-02-2023U PregNegativePremier Health Miami Valley Hospital NorthComment on above:Performed By: #### [id number] #### [facility] (DEFAULT) [address] [place] [address] 92283X Preg Internal ControlPassParkview HealthComment on above:Performed By: #### [id number] #### [facility] (DEFAULT) [address] [place] [address] 77155NN Qzgda8ly 56-73-8181ZF BacteriaTraceParkview HealthComment on above:Order Comment: Urinalysis Microscopic order added on by [employer] Rules system.Performed By: #### [id number] #### [facility] (DEFAULT) [address] [place] [address] 30417VD Mucous1+Parkview HealthComment on above:Order Comment: Urinalysis Microscopic order added on by [employer] Expert Rules system. Performed By: #### [id number] #### [facility] (DEFAULT) [address] [place] [address] 01197NX RBCNone SeenCherrington Hospital HospitalComment on above: Order Comment: Urinalysis Microscopic order added on by [employer] Expert Rules system.Performed By: #### [id number] #### [facility] (DEFAULT) [address] [place] [address] 75169VW Squam EpiFewNoMartins Ferry Hospital HospitalComment on above: Order Comment: Urinalysis Microscopic order added on by Discern Expert Rules system.Performed By: #### [id number] #### [facility] (DEFAULT) [address] [place] [address] 71050AJ WBCNone SeenCherrington Hospital HospitalComment on above: Order Comment: Urinalysis Microscopic order added on by [employer] Expert Rules system.Performed By: #### [id number] #### [facility] (DEFAULT) [address] [place] [address] 51911ZN w Culture if Ind Standardon 85-69-4362Ovnpltlsgv UA NormalNewark Hospital HospitalComment on above:Performed By: #### [id number] #### [facility] (DEFAULT) [address] [place] [address] 66863Vnkin (U)Dark YellowNoMedina HospitalComment on above:Performed By: #### [id number] #### [facility] (DEFAULT) [address] [place] [address] 58840Dmvbeje?Not IndicatedInvalid Interpretation [facility] HospitalComment on above:Result Comment: Result created by rule GL_MAGR_ADD_UA_CULTPerformed By: #### [id number] #### [facility] (DEFAULT) [address] [place] [address] 13379Gwsjybe (U) [Mass/Vol]NegativeCherrington Hospital Hospital Comment on above:Performed By: #### [id number] #### [facility] (DEFAULT) [address] [place] [address] 73497Poudumd Ql (U)TRACENormalMagruder HospitalComment on above:Performed By: #### [id number] #### [facility] (DEFAULT) [address] [place] [address] 02985Sfbei?IndicatedInvalid Interpretation CodeCogruder HospitalComment on above:Result Comment: Result created by rule GL_MAGR_ADD_UA_MICROPerformed By: #### [id number] #### [facility] (DEFAULT) [address] [place] [address] 88871GM BilirubinMODERATEAbnormalCogrmorrow county hospital HospitalComment on above:Performed By: #### [id number] #### [facility] (DEFAULT) [address] [place] [address] 85453WS BloodNegativeNormalNEGATIVEMagrmorrow county hospital HospitalComment on above:Performed By: #### [id number] #### [facility] (DEFAULT) [address] [place] [address] 32554ZS ClaritySL CLOUDYAbnormalCLEARMagrmorrow county hospital HospitalComment on above:Performed By: #### [id number] #### [facility] (DEFAULT) [address] [place] [address] 02953DK Leuk EstNegativeNormalNEGATIVENewark Hospital HospitalComment on above:Performed By: #### [id number] #### [facility] (DEFAULT) [address] [place] [address] 47605KZ NitriteNegativeNormalNEGATIVECogrmorrow county hospital HospitalComment on above:Performed By: #### [id number] #### [facility] (DEFAULT) [address] [place] [address] 51629HF pH6.8Eksbtj0-0Rolnvxfs HospitalComment on above: Performed By: #### [id number] #### [facility] (DEFAULT) [address] [place] [address] 24017CC Adegyxx20KocreaucATNIERSFDauvcuma HospitalComment on above:Performed By: #### [id number] #### [facility] (DEFAULT) [address] [place] [address] 79313CU Spec Grav>=1.688Oitvjm6.001-1.035[facility] Hospital Comment on above:Performed By: #### [id number] #### [facility] (DEFAULT) [address] [place] [address] 29803AW Urobilinogen1.0 mg/dLNormal0.2-1.0[facility] Comment on above:Performed By: #### [id number] #### [facility] (DEFAULT) [address] [place] [address] 50436Xevxk SourceClean CatchParkview HealthComment on above:Performed By: #### [id number] #### [facility] (DEFAULT) [address] [place] [address].on 85-71-0072R[address] [facility] Lawrence Rehabilitation CenterComment on above:Performed By: #### [id number] #### [facility] (DEFAULT) [address] [place] [address] 68116Uhqyce Summaryon 71-98-9499Rhleig SummaryHTMLBase 64 TnjpcexpMPz6kUg+PGhlYWQ+PI9GDKXfF57hcYFaaT1qB1KZMNeFPdcqSEUKWXhYYuTiplEvYO5fkXSi ZXJu [file] [facility] (more content not included)...Parkview HealthBasophils Auto (Bld) [#/Vol]on 26-42-8105Ybcazdlcl (Bld) [#/Vol]0.0 x100.0-0.2FSumma Health Akron CampusBasophils/100 WBC Auto (Bld)on 44-23-8568Jyhclrrjf/100 WBC (Bld) 0.3 %0.2-2.0[facility] HospitalEosinophils/100 WBC Auto (Bld)on 00-39-6312Xinduvvsbdu/100 WBC (Bld)2.7 %0.9-4.0[facility] Erythrocyte distribution width Auto (RBC) [Ratio]on 63-23-5859Rnsabpmxinx distribution width (RBC) [Ratio]14.1 %11.5-15.0[facility] Hematocrit Auto (Bld) [Volume fraction]on 96-05-1736Tllrhmsibt (Bld) [Volume fraction]41.4 %High33.7-40.4FSumma Health Akron CampusHemoglobin [Mass/volume] in Bloodon 52-79-4904Hcrykpsour (Bld) [Mass/Vol]14.0 g/dL11.3-15.9 [facility] HospitalIron binding capacity [Mass/volume] in Serum or Plasmaon 50-37-2022Nbqm binding capacity [Mass/Vol]405 mcg/oVGrbo087-178 [facility] HospitalIron saturation [Mass Fraction] in Serum or Plasmaon 58-71-4552Cixo saturation [Mass fraction]12 %Sbv86-16TlbuhcbugClermont County HospitalLaboratory - Chemistry and Chemistry - challengeon 41-55-7533Ettz [Mass/Vol]48.0 ug/dL28.0-170.0[facility] HospitalTransferrin [Mass/Vol]289.2 mg/dL192.0-382.0[facility] HospitalLeukocytes [#/volume] corrected for nucleated erythrocytes in Blood by Automated counon 96-53-6422TSH corrected for nucl RBC Auto (Bld) [#/Vol]6.4 x103.5-10.5FSumma Health Akron CampusLymphocytes Auto (Bld) [#/Vol]on 99-72-4018Fuuvrqjigkx (Bld) [#/Vol]2.2 x101.3-2.9[facility] HospitalLymphocytes/100 WBC Auto (Bld)on 90-50-9334Vennxbjoofi/100 WBC (Bld)34 %14-48Cl[facility] HospitalMCH Auto (RBC) [Entitic mass]on 65-99-8778NBI (RBC) [Entitic mass] 29 ji60-34ZyeqjadjxClermont County HospitalMCHC Auto (RBC) [Mass/Vol]on 03-65-3610ZUPS (RBC) [Mass/Vol]34 g/yB95-00OfbredhvfClermont County HospitalMCV Auto (RBC) [Entitic vol]on 13-91-0341ODA (RBC) [Entitic vol]87 kJ17-201ZwcympfpaClermont County HospitalMonocytes Auto (Bld) [#/Vol]on 01-42-8551Eynotwbng (Bld) [#/Vol]0.4 x100.0-0.8[facility] HospitalMonocytes/100 WBC Auto (Bld)on 54-78-2838Upwendxie/100 WBC (Bld)6 %1-12[facility] HospitalNeutrophils Auto (Bld) [#/Vol]on 10-02-9272Guhvwivqlun (Bld) [#/Vol]3.7 x101.5-9.2FSumma Health Akron CampusNeutrophils/100 WBC Auto (Bld)on 00-35-2876Gcqifodkdhl/100 WBC (Bld)57 %44-88Clermont County HospitalNo Panel Informationon 20-31-0665Wrv Manual DifferentialAuto AutoClermont County HospitalEosinophils # (Auto)0.2 x100.0-0.4FSumma Health Akron CampusPlatelet mean volume Auto (Bld) [Entitic vol]on 38-47-9199Kvauyjvf mean volume (Bld) [Entitic vol]6.7 fL6.3-10.2FSumma Health [facility] Campus Platelets Auto (Bld) [#/Vol]on 80-77-6269Ewbnkqdoa (Bld) [#/Vol]179 [id number] [facility] HospitalRBC Auto (Bld) [#/Vol]on 75-50-5508MLB (Bld) [#/Vol]4.76 x103.70-5.30[facility] HospitalFollitropin [Units/volume] in Serum or PlasmaOrdered By: LEOBARDO BARROSO on 06-23-2022 Follitropin Qn6.2 m[IU]/mLClermont County HospitalComment on above: FEMALE NORMALS (PREMENOPAUSE) MID-FOLLICULAR PHASE: 3.9-8.8 mIU/mL MID-CYCLE PEAK: 4.5-22.5 mIU/mL MID-LUTEAL PHASE: 1.8-5.1 mIU/mLFEMALE NORMALS (POSTMENOPAUSE): 16.7-113.6 mIU/mLMALE NORMALS: 1.3-19.3 mIU/mLProlactin [Mass/volume] in Serum or PlasmaOrdered By: LEOBARDO BARROSO on 06-23-2022 Prolactin [Mass/Vol]7.58 ng/mL3.34-26.72[facility] HospitalCT biopsyOrdered By: Amanda Ford on 15-45-4997Jczdbkhikjq [Mass/Vol]393 mg/oX881-705XtohqikhwClermont County HospitalIron [Mass/volume] in Serum or PlasmaOrdered By: Amanda Ford on 05-63-3298Cpzh [Mass/Vol]34 ug/qB45-017 [facility] HospitalIron binding capacity [Mass/volume] in Serum or PlasmaOrdered By: Amanda Ford on 92-91-6271Kulb binding capacity [Mass/Vol]550 ug/jW787-135RbigofgsdClermont County HospitalIron saturation [Mass Fraction] in Serum or PlasmaOrdered By: Amanda Ford on 57-22-8344Itpk saturation [Mass fraction]6.2 %20-50[facility] Anisocytosis LM Ql (Bld)Ordered By: Farhad Gallego on 02-02-4033Agbvcefmlohi Ql (Bld)MarkedClermont County HospitalBasophils Auto (Bld) [#/Vol]Ordered By: Farhad Gallego on 05-50-5582Eusczmjlu (Bld) [#/Vol]N/[facility] CenterBasophils/100 WBC Auto (Bld)Ordered By: Farhad Gallego on 06-11-2022 Basophils/100 WBC (Bld)N/[facility] CenterBasophils/100 WBC Manual cnt (Bld)Ordered By: Farhad Gallego on 43-87-8366Afrqpfkbw/100 WBC (Bld)1 % 0-2FSumma Health Akron CampusEosinophils Auto (Bld) [#/Vol]Ordered By: Farhad Gallego on 4370Djfmikiafhm (Bld) [#/Vol]N/[facility] CenterEosinophils/100 WBC Auto (Bld)Ordered By: Farhad Lashonda on 06-11-2022 Eosinophils/100 WBC (Bld)N/[facility] CenterEosinophils/100 WBC Manual cnt (Bld)Ordered By: Farhad Lashonda on 21-76-8545Bzzysvfbmss/100 WBC (Bld) 7 %1-3FSumma Health Akron CampusErythrocyte distribution width Auto (RBC) [Ratio]Ordered By: Farhad Lashonda on 94-90-9428Dopjphbtpmc distribution width (RBC) [Ratio]26.1 %11.9-15.3FSumma Health Akron CampusHematocrit Auto (Bld) [Volume fraction]Ordered By: Farhad Lashonda on 03-46-1635Rsmrldghuw (Bld) [Volume fraction]25.7 %34.0-46.4FSumma Health Akron CampusHemoglobin [Mass/volume] in BloodOrdered By: Farhad Lashonda on 67-71-6543Alamxxrnap (Bld) [Mass/Vol]8.0 g/dL11.8-15.4FSumma Health Akron CampusHypochromia LM Ql (Bld)Ordered By: Farhad Lashonda on 82-19-4461Vdnszxbkxwe Ql (Bld)[facility] HospitalLeukocytes [#/volume] corrected for nucleated erythrocytes in Blood by Automated counOrdered By: Farhad Lashonda on 61-49-9131WEO corrected for nucl RBC Auto (Bld) [#/Vol]5.0 10*3/uL3.8-11.6FSumma Health Akron CampusLymphocytes Auto (Bld) [#/Vol]Ordered By: Farhad Lashonda on 35-84-6398Bgfuedjsmie (Bld) [#/Vol]N/[facility] Lymphocytes/100 WBC Auto (Bld)Ordered By: Farhad Lashonda on 06-11-2022 Lymphocytes/100 WBC (Bld)N/[facility] CenterLymphocytes/100 WBC Manual cnt (Bld)Ordered By: Farhad Lashonda on 18-17-8631Btiukyiftov/100 WBC (Bld) 56 %18-42Cl[facility] HospitalMCH Auto (RBC) [Entitic mass]Ordered By: Farhad Lashonda on 60-53-7681LFJ (RBC) [Entitic mass]21.1 pg24.7-34.3FSumma Health Akron CampusMCHC Auto (RBC) [Mass/Vol]Ordered By: Farhad Lashonda on 72-90-8650REDA (RBC) [Mass/Vol]31.2 g/dL32.0-35.0Cl[facility] HospitalMCV Auto (RBC) [Entitic vol]Ordered By: Farhad Lashonda on 03-36-4146QUO (RBC) [Entitic vol]67.6 oU77-878WdsiehkmuClermont County HospitalMicrocytes LM Ql (Bld)Ordered By: Farhad Lashonda on 66-03-7399Shqrindgsx Ql (Bld)MarkedClermont County HospitalMonocytes Auto (Bld) [#/Vol]Ordered By: Farhad Lashonda on 22-06-1391Aromyqdtj (Bld) [#/Vol]N/[facility] Monocytes/100 WBC Auto (Bld)Ordered By: Farhad Lashonda on 22-73-6889Bunvdugpa/100 WBC (Bld)N/[facility] CenterMonocytes/100 WBC Manual cnt (Bld) Ordered By: Farhad Lashonda on 88-99-5229Pxlxhqtgo/100 WBC (Bld)5 %2-11Cl[facility] HospitalNeutrophils Auto (Bld) [#/Vol]Ordered By: Farhad Lashonda on 13-73-3711Nxpzbroytgh (Bld) [#/Vol]N/[facility] Neutrophils/100 WBC Auto (Bld)Ordered By: Farhad Lashonda on 06-11-2022 Neutrophils/100 WBC (Bld)N/[facility] CenterNucleated erythrocytes [Presence] in Blood by Automated countOrdered By: Farhad Lashonda on 83-38-2182Qlnkojwyd RBC Auto Ql (Bld)N/[facility] Platelet adequacy [Presence] in Blood by Light microscopyOrdered By: Farhad Lashonda on 66-16-1644Cfcqdpjvl LM Ql (Bld)NormalNoLutheran HospitalPlatelet mean volume Auto (Bld) [Entitic vol]Ordered By: Farhad Lashonda on 40-21-1199Baiugkfm mean volume (Bld) [Entitic vol]8.2 fL6.3-10.7FSumma Health Akron CampusPlatelet morphology finding [Identifier] in BloodOrdered By: FarhadMerchant on 83-65-2431Xaikkqre morphology finding Nom (Bld)NormalNoUC Medical CenterPlatelets Auto (Bld) [#/Vol]Ordered By: Farhad Lashonda on 17-23-2087Iahpwqnnb (Bld) [#/Vol]165 10*3/tK680-857BtauxwwpkClermont County HospitalPolychromasia [Presence] in Blood by Light microscopyOrdered By: Farhad Gallego on 85-20-8998Tocwesdkxrdlr LM Ql (Bld)[facility] HospitalRB Auto (Bld) [#/Vol]Ordered By: Farhad Gallego on 80-21-8512EYO (Bld) [#/Vol]3.80 10*6/uL3.60-5.00Cl[facility] County HospitalRB morphologyOrdered By: Farhad Galelgo on 88-51-6790SHL morphology finding Nom (Bld) N/AFACMC Healthcare System Glenbeighegmented neutrophils/100 WBC Manual cnt (Bld)Ordered By: Farhad Gallego on 28-46-3154Wuspiigrl neutrophils/100 WBC (Bld)32 %50-70Cl[facility] HospitalWBC Auto (Bld) [#/Vol]Ordered By: Farhad Gallego on 79-32-3833LMT (Bld) [#/Vol]5.0 10*3/uL3.8-11.6FSumma Health Akron CampusActivated partial thromboplastin time (aPTT) in platelet poor plasma by coagulation aOrdered By: Jean Jett on 60-03-5241yWLN Coag (PPP) [Time]29.8 s25.1-36.5FSumma Health Akron CampusAnisocytosis LM Ql (Bld) Ordered By: Jean Jett on 90-44-2103Nfdebqbjmggr Ql (Bld)[facility] HospitalBasophils Auto (Bld) [#/Vol]Ordered By: Jean Jett on 16-37-2464Ndpdwxcgo (Bld) [#/Vol]0.1 10*3/uL0.0-0.2FSumma Health Akron CampusBasophils/100 WBC Auto (Bld)Ordered By: Jean Jett on 06-10-2022 Basophils/100 WBC (Bld)1.8 %.[facility] HospitalBilirubin Test strip Ql (U)Ordered By: Jean Jett on 46-48-3237Vmgglprhc Ql (U)Negative NegativeClermont County HospitalCT biopsyOrdered By: Jean Jett on 60-04-7814Wuhoaamjhvd [Mass/Vol]380 mg/sK913-080RsjibxmsuClermont County HospitalCalcium [Mass/volume] in Serum or PlasmaOrdered By: Jean Jett on 17-03-1432Izhdcrl [Mass/Vol]8.6 mg/dL8.2-10.2FSumma Health [facility] Campus Carbon dioxide, total [Moles/volume] in Serum or PlasmaOrdered By: Jean Jett on 77-36-7844XJ3 [Moles/Vol]23.3 mmol/L22.0-30.0Cl[facility] HospitalChloride [Moles/volume] in Serum or PlasmaOrdered By: Jean Jett on 06-13-6578Hlubyxpu [Moles/Vol]106 mmol/V16-598PzdwzepgyClermont County Hospital Color Auto (U)Ordered By: Jean Jett on 11-68-0982Fhfyc (U)YellowYellow [facility] HospitalCreatine kinase [Enzymatic activity/volume] in Serum or PlasmaOrdered By: Jean Jett on 70-02-7675WU [Catalytic activity/Vol] 100 U/O52-295WxfmwmnsyClermont County HospitalCreatinine and Glomerular filtration rate.predicted panel (S/P/Bld)Ordered By: Jean Jett on 06-10-2022 Creatinine [Mass/Vol]0.71 mg/dL0.44-1.03[facility] Eosinophils Auto (Bld) [#/Vol]Ordered By: Jean Jett on 49-67-9169Novylykzeoc (Bld) [#/Vol]0.3 10*3/uL0.0-0.45[facility] HospitalEosinophils/100 WBC Auto (Bld)Ordered By: Jean Jett on 91-46-9738Hjuzyfwgrkx/100 WBC (Bld) 5.0 %.[facility] HospitalErythrocyte distribution width Auto (RBC) [Ratio]Ordered By: Jean Jett on 45-98-5235Dcgabvgniku distribution width (RBC) [Ratio]24.6 %11.9-15.3FSumma Health Akron CampusEstimated glomerular filtration rate (GFR) non- AmericanOrdered By: Jean Jett on 10-93-1774DQM/1.73 sq M.predicted among non-blacks MDRD (S/P/Bld) [Vol rate/Area]> 60 mL/MinClermont County HospitalFecal occult blood detection by immunochemistryOrdered By: Jean Jett on 06-10-2022 Hemoglobin.gastrointestinal Ql (Stl)[facility] HospitalGlucose [Mass/volume] in Serum or PlasmaOrdered By: Jean Jett on 44-63-3454Xqexkqa [Mass/Vol]94 mg/zL39-405WwqvfryaxClermont County HospitalComment on above:ADA recommended reference rangeRandom Glucose Reference Range is dependent on time and content of last meal. Glucose of more than 200 mg/dL in a nonstressed, ambulatory subject supports the diagnosisof Diabetes Mellitus.HCG ( test) IA.rapid Ql (U)Ordered By: Jean Jett on 61-62-7816RQL ( test) Ql (U)NegativeClermont County HospitalHematocrit Auto (Bld) [Volume fraction]Ordered By: Jean Jett on 88-69-5811Ylfdsbwekv (Bld) [Volume fraction]23.8 %34.0-46.4FSumma Health Akron CampusHemoglobin [Mass/volume] in BloodOrdered By: Jean Jett on 16-46-5398Zxeslocupv (Bld) [Mass/Vol]7.3 g/dL11.8-15.4FSumma Health Akron CampusHypochromia LM Ql (Bld)Ordered By: Jean Jett on 31-11-6308Wnsipwjktav Ql (Bld)MarkedClermont County HospitalIron [Mass/volume] in Serum or PlasmaOrdered By: Jean Jett on 92-50-0725Kaph [Mass/Vol]25 ug/sO29-481TphsstrluClermont County HospitalIron binding capacity [Mass/volume] in Serum or PlasmaOrdered By: Jean Jett on 50-48-3662Hiuo binding capacity [Mass/Vol]532 ug/tP092-341GdpdicgiaClermont County HospitalIron saturation [Mass Fraction] in Serum or PlasmaOrdered By: Jean Jett on 30-44-4326Aqgl saturation [Mass fraction]4.7 %20-50Cl[facility] County HospitalKetones Auto test strip (U) [Mass/Vol]Ordered By: Jean Jett on 07-78-9321Cfkqjei (U) [Mass/Vol]NegativeNegativeClermont County HospitalLaboratory - Chemistry and Chemistry - challengeOrdered By: Jean Jett on 50-29-9227Subzqkwzg [Mass/Vol]1.9 mg/dL1.6-2.6FSumma Health Akron CampusNatriuretic peptide B (Bld) [Mass/Vol]23.0 pg/mL5-100Cl[facility] HospitalLaboratory - CoagulationOrdered By: Jean Jett on 72-62-4030IG Coag (PPP) [Time]12.9 s9.0-12.9[facility] Leukocytes [#/volume] corrected for nucleated erythrocytes in Blood by Automated counOrdered By: Jean Jett on 01-16-5242LUQ corrected for nucl RBC Auto (Bld) [#/Vol]5.3 10*3/uL3.8-11.6FSumma Health Akron CampusLymphocytes Auto (Bld) [#/Vol]Ordered By: Jean Jett on 67-66-7536Ofbnuxcqozn (Bld) [#/Vol]2.2 10*3/uL1.00-4.8[facility] HospitalLymphocytes/100 WBC Auto (Bld) Ordered By: Jean Jett on 06-93-6669Sutikqnmwcl/100 WBC (Bld)41.3 %.[facility] HospitalMCH Auto (RBC) [Entitic mass]Ordered By: Jean Jett on 82-68-3188OCB (RBC) [Entitic mass]19.7 pg24.7-34.3FSumma Health Akron CampusMCHC Auto (RBC) [Mass/Vol]Ordered By: Jean Jett on 15-00-2250MBYR (RBC) [Mass/Vol]30.6 g/dL32.0-35.0Cl[facility] HospitalMCV Auto (RBC) [Entitic vol]Ordered By: Jean Jett on 81-41-0142QZB (RBC) [Entitic vol]64.5 mK82-541UcziylplsClermont County HospitalMicrocytes LM Ql (Bld)Ordered By: Jean Jett on 58-11-1701Npajpyonxm Ql (Bld)MarkedClermont County HospitalMonocyte distribution width [Entitic volume] in Blood by AutomatedOrdered By: Jean Jett on 77-76-4565Pexlyhjx distribution width Auto (Bld) [Entitic vol]17.54 %0.00-20.00Cl[facility] HospitalMonocytes Auto (Bld) [#/Vol]Ordered By: Jean Jett on 24-90-6222Mhzprcqgm (Bld) [#/Vol]0.4 10*3/uL 0.0-0.8Cl[facility] HospitalMonocytes/100 WBC Auto (Bld)Ordered By: Jean Jett on 04-96-3354Pzcyvgubx/100 WBC (Bld)6.8 %.[facility] HospitalNeutrophils Auto (Bld) [#/Vol]Ordered By: Jean Jett on 55-98-2783Dqbdkxbyibs (Bld) [#/Vol]2.4 10*3/uL1.8-7.7FSumma Health Akron CampusNeutrophils/100 WBC Auto (Bld)Ordered By: Jean Jett on 06-10-2022 Neutrophils/100 WBC (Bld)45.1 %.[facility] HospitalNitrite Test strip Ql (U)Ordered By: Jean Jett on 31-24-1835Aywvsxb Ql (U)NegativeNegative [facility] HospitalNo Panel InformationOrdered By: Jean Jett on 96-26-0586Mjagvpxqe GFR ()> 60 mL/MinClermont County HospitalComment on above:GFR estimated reference range: According to KDOQI guidelines, <60 ml/min/1.73m2 is sufficient todiagnose a patient with chronic kidney disease.Pharmacy Creatinine Clearance (Hjth633.49Cl[facility] HospitalNucleated erythrocytes [Presence] in Blood by Automated count Ordered By: Jean Jett on 92-90-6015Mkpuutkvv RBC Auto Ql (Bld)0.1 /100{WBC} 0-0.5FSumma Health Akron CampusOvalocyte detectionOrdered By: Jean Jett on 82-41-4025Qeqbuqulzy LM Ql (Bld)SlightClermont County Hospital Platelet adequacy [Presence] in Blood by Light microscopyOrdered By: Jean Jett on 76-30-2942Cyblqrkok LM Ql (Bld)NormalNormSt. Anthony's HospitalPlatelet mean volume Auto (Bld) [Entitic vol]Ordered By: Jean Jett on 92-91-7480Xzpyirxa mean volume (Bld) [Entitic vol]8.3 fL6.3-10.7FSumma Health Akron CampusPlatelet morphology finding [Identifier] in BloodOrdered By: Jean Jett on 29-53-0328Evevkvjt morphology finding Nom (Bld)NormalNormal [facility] HospitalPlatelet poor plasma international normalized ratio (INR) by coagulation assay (relatOrdered By: Jean Jett on 92-11-0683HSJ Coag (PPP) [Relative time]1.1 {INR}[facility] HospitalComment on above:INR Therapeutic Range A) [...] Auto (Bld) [#/Vol]Ordered By: Jean Jett on 95-68-3022Amaafmnvp (Bld) [#/Vol]202 10*3/bK830-526MuipzebwzClermont County HospitalPoikilocytosis [Presence] in Blood by Light microscopyOrdered By: Jean Jett on 22-70-2530Cyscqrkbsmxutu LM Ql (Bld)[facility] HospitalPolychromasia [Presence] in Blood by Light microscopyOrdered By: Jean Jett on 10-72-2514Bjxfhpujrvbyz LM Ql (Bld)[facility] HospitalPotassium [Moles/volume] in Serum or PlasmaOrdered By: Jean Jett on 10-51-5143Abpfnxwtz [Moles/Vol]4.1 mmol/L3.5-5.1FSumma Health Akron CampusProtein Auto test strip (U) [Mass/Vol]Ordered By: Jean Jett on 53-47-6113Evgtvbp (U) [Mass/Vol]NegativeNegativeClermont County HospitalRBC Auto (Bld) [#/Vol]Ordered By: Jean Jett on 69-29-2439TBJ (Bld) [#/Vol]3.69 10*6/uL3.60-5.00[facility] morphology Ordered By: Jean Jett on 69-10-5567NCE morphology finding Nom (Bld)N/A [facility] Andersonerum or plasma anion gap determinationOrdered By: Jean Jett on 27-87-4822Mbtwz gap [Moles/Vol]10.8 mmol/L6.0-15.0[facility] Andersonodium [Moles/volume] in Serum or PlasmaOrdered By: Jean Jett on 38-82-5541Yhkowz [Moles/Vol]136 mmol/W675-035RualkfjnoOur Lady of Mercy Hospital - Andersonpecific gravity Auto test strip (U) [Rel density]Ordered By: Jean Jett on 86-06-8639Lsconvwj gravity (U) [Rel density]1.0101.001-1.030 [facility] HospitalTarget cellsOrdered By: Jean Jett on 65-76-9968Ymkelw cells LM Ql (Bld)[facility] Teardrop cell detectionOrdered By: Jean Jett on 86-10-3053Pgyfbsctds LM Ql (Bld)[facility] HospitalTroponin I.cardiac [Mass/volume] in Serum or Plasma by High sensitivity methodOrdered By: Jean Jett on 06-10-2022 Troponin I.cardiac High sensitivity method [Mass/Vol]< 3 pg/mL0-15Cl[facility] HospitalUrea nitrogen [Mass/volume] in Serum or PlasmaOrdered By: Jean Jett on 22-31-6899Tzgk nitrogen [Mass/Vol]9 mg/dL9Cl[facility] HospitalUrine clarity by refractometry automatedOrdered By: Jean Jett on 49-11-4038Vhidllw Refractometry automated (U)ClearClearFSumma Health Akron CampusUrine glucose measurement by automated test strip (mass/volume) Ordered By: Jean Jett on 95-11-0146Tgfxjza Auto test strip (U) [Mass/Vol] Normal mg/dLNoLutheran HospitalUrine hemoglobin detection by automated test stripOrdered By: Jean Jett on 32-56-6514Rcfommetev Auto test strip Ql (U)NegativeNegSCCI Hospital LimaUrine leukocyte esterase detection by automated test stripOrdered By: Jean Jett on 06-10-2022 Leukocyte esterase Auto test strip Ql (U)NegativeNegSCCI Hospital LimaUrobilinogen Auto test strip (U) [Mass/Vol]Ordered By: Jean Jett on 17-90-9197Tprscxghmqkr (U) [Mass/Vol]Normal mg/dLNoLutheran HospitalWBC Auto (Bld) [#/Vol]Ordered By: Jean Jett on 02-59-5101FRP (Bld) [#/Vol]5.3 10*3/uL3.8-11.6FSumma Health [facility] Campus pH Auto test strip (U)Ordered By: Jean Jett on 29-44-3495vW (U)5.5 [pH] 5.0-9.0[facility] HospitalAlkaline phosphatase [Enzymatic activity/volume] in Serum or PlasmaOrdered By: Julieta Jefferson on 10-94-6663TPN [Catalytic activity/Vol]39 U/Y43-04FhfhalwwrClermont County HospitalAnisocytosis LM Ql (Bld)Ordered By: Julieta Jefferson on 66-08-5304Vdozygmqcddy Ql (Bld)Marked [facility] HospitalAspartate aminotransferase [Enzymatic activity/volume] in Serum or PlasmaOrdered By: Julieta Jefferson on 10-21-4388RJJ [Catalytic activity/Vol]15 U/I56-07JfqctitnfClermont County HospitalBasophils Auto (Bld) [#/Vol]Ordered By: Julieta Jefferson on 62-84-7314Hifkfqtaq (Bld) [#/Vol] 0.1 10*3/uL0.0-0.2FSumma Health Akron CampusBasophils/100 WBC Auto (Bld) Ordered By: Julieta Jefferson on 31-35-2576Ottgmiqxb/100 WBC (Bld)1.4 %.[facility] HospitalBody fluid albumin measurement (mass/volume)Ordered By: Julieta Jefferson on 33-18-7597Xdphpbo (Body fld) [Mass/Vol]4.1 g/dL3.2-5.5FSumma Health Akron CampusCalcium [Mass/volume] in Serum or PlasmaOrdered By: Julieta Jefferson on 83-25-6609Qnsipje [Mass/Vol]9.0 mg/dL8.2-10.2FSumma Health Akron CampusCarbon dioxide, total [Moles/volume] in Serum or PlasmaOrdered By: Julieta Jefferson on 19-48-9550JR8 [Moles/Vol]23.3 mmol/L22.0-30.0[facility] HospitalCholesterol [Mass/volume] in Serum or PlasmaOrdered By: Julieta Jefferson on 28-92-6096Hctzlnpgceq [Mass/Vol]137 mg/gB375-721AmuxouiatClermont County HospitalComment on above:Chol less than 200 mg/dl low riskChol 201-239 mg/dl borderline riskChol 240 mg/dl and greater high riskCholesterol in LDL Calc [Mass/Vol]Ordered By: Julieta Jefferson on 30-11-6149Tdyhqxeaqwu in LDL [Mass/Vol]72 mg/dL0-100Cl[facility] HospitalComment on above:LDL ATP III CLASSIFICATIONLDL less than 100 mg/dL OptimalLDL 100-129 mg/dL Near or above hscvgpeQMH474-974 mg/dL Borderline highLDL 160-189 mg/dL HighLDL greater than 189 mg/dL Very highCholesterol in VLDL Calc [Mass/Vol]Ordered By: Julieta Jefferson on 61-31-3751Marktzkjsts in VLDL [Mass/Vol]9 mg/dLClermont County HospitalCreatinine and Glomerular filtration rate.predicted panel (S/P/Bld)Ordered By: Julieta Jefferson on 34-92-9303Jycrlsxpti [Mass/Vol]0.59 mg/dL0.44-1.03[facility] HospitalEosinophils Auto (Bld) [#/Vol]Ordered By: Julieta Jefferson on 81-31-9241Xbdslwspruf (Bld) [#/Vol]0.3 10*3/uL0.0-0.45Cl[facility] HospitalEosinophils/100 WBC Auto (Bld)Ordered By: Julieta Jefferson on 06-09-2022 Eosinophils/100 WBC (Bld)6.8 %.[facility] HospitalErythrocyte distribution width Auto (RBC) [Ratio]Ordered By: Julieta Jefferson on 06-09-2022 Erythrocyte distribution width (RBC) [Ratio]24.5 %11.9-15.3FSumma Health Akron CampusEstimated glomerular filtration rate (GFR) non- Ordered By: Julieta Jefferson on 98-34-8253BRV/1.73 sq M.predicted among non-blacks MDRD (S/P/Bld) [Vol rate/Area]> 60 mL/MinClermont County Hospital Globulin Calc (S) [Mass/Vol]Ordered By: Julieta Jefferson on 92-07-9137Flogugtc (S) [Mass/Vol]2.3 g/dLClermont County HospitalGlucose mean value [Mass/volume] in Blood Estimated from glycated hemoglobinOrdered By: Julieta Jefferson on 34-96-9860Factggq glucose Estimated from glycated hemoglobin (Bld) [Mass/Vol]97 mg/dLClermont County HospitalHematocrit Auto (Bld) [Volume fraction]Ordered By: Julieta Jefferson on 29-88-7383Jzcbgzcibr (Bld) [Volume fraction]26.0 %34.0-46.4FSumma Health Akron CampusHemoglobin A1c percentageOrdered By: Julieta Jefferson on 70-77-9862UxK0l (Bld) [Mass fraction]5.0 % 4.3-5.6FSumma Health Akron CampusComment on above:Increased risk for diabetes: 5.7 - 6.4diabetes: >6.4glycemic control for adults with diabetes: &l t;7.0Hemoglobin [Mass/volume] in BloodOrdered By: Julieta Jefferson on 06-09-2022 Hemoglobin (Bld) [Mass/Vol]7.8 g/dL11.8-15.4FSumma Health [facility] Campus Hypochromia LM Ql (Bld)Ordered By: Julieta Jefferson on 75-96-6598Eqovoivvbya Ql (Bld) ModerateClermont County HospitalLeukocytes [#/volume] corrected for nucleated erythrocytes in Blood by Automated counOrdered By: Julieta Jefferson on 95-10-3594CWC corrected for nucl RBC Auto (Bld) [#/Vol]4.6 10*3/uL3.8-11.6 [facility] HospitalLymphocytes Auto (Bld) [#/Vol]Ordered By: Julieta Jefferson on 04-73-0839Yqkscbcotkk (Bld) [#/Vol]2.0 10*3/uL1.00-4.8Cl[facility] HospitalLymphocytes/100 WBC Auto (Bld)Ordered By: Julieta Jefferson on 40-09-4752Maymmsmpddc/100 WBC (Bld)44.2 %.[facility] HospitalMCH Auto (RBC) [Entitic mass]Ordered By: Julieta Jefferson on 00-16-0717EFC (RBC) [Entitic mass]19.7 pg24.7-34.3FSumma Health Akron CampusMCHC Auto (RBC) [Mass/Vol]Ordered By: Julieta Jefferson on 46-29-5928TAID (RBC) [Mass/Vol]30.2 g/dL 32.0-35.0Cl[facility] HospitalMCV Auto (RBC) [Entitic vol]Ordered By: Julieta Jefferson on 67-42-6201STF (RBC) [Entitic vol]65.3 bV35-817FfmronrmsClermont County HospitalMicrocytes LM Ql (Bld)Ordered By: Julieta Jefferson on 07-64-4321Zvbvdvtppu Ql (Bld)MarkedClermont County HospitalMonocytes Auto (Bld) [#/Vol]Ordered By: Julieta Jefferson on 66-63-4667Cmvqqonxi (Bld) [#/Vol] 0.4 10*3/uL0.0-0.8Cl[facility] HospitalMonocytes/100 WBC Auto (Bld) Ordered By: Julieta Jefferson on 99-58-0251Rfrsnrkft/100 WBC (Bld)8.9 %.[facility] HospitalNeutrophils Auto (Bld) [#/Vol]Ordered By: Julieta Jefferson on 69-48-0111Jcoelgysycy (Bld) [#/Vol]1.8 10*3/uL1.8-7.7FSumma Health Akron CampusNeutrophils/100 WBC Auto (Bld)Ordered By: Julieta Jefferson on 06-09-2022 Neutrophils/100 WBC (Bld)38.7 %.[facility] HospitalNo Panel InformationOrdered By: Julieta Jefferson on 19-60-3281Iyjuybhlt GFR () > 60 mL/MinClermont County HospitalComment on above:GFR estimated reference range: According to KDOQI guidelines, <60 ml/min/1.73m2 is sufficient todiagnose a patient with chronic kidney disease.Pharmacy Creatinine Clearance (ChemN/[facility] CenterNucleated erythrocytes [Presence] in Blood by Automated countOrdered By: Julieta Jefferson on 39-61-1446Tfshossvo RBC Auto Ql (Bld)0.1 /100{WBC}0-0.5FSumma Health Akron CampusPlatelet adequacy [Presence] in Blood by Light microscopyOrdered By: Julieta Jefferson on 06-09-2022 Platelets LM Ql (Bld)NormalZanesville City HospitalPlatelet mean volume Auto (Bld) [Entitic vol]Ordered By: Julieta Jefferson on 29-59-0714Zaajewvj mean volume (Bld) [Entitic vol]8.2 fL6.3-10.7FSumma Health [facility] Campus Platelet morphology finding [Identifier] in BloodOrdered By: Julieta Jefferson on 46-59-2439Aqthgkhl morphology finding Nom (Bld)NormalNoLutheran HospitalPlatelets Auto (Bld) [#/Vol]Ordered By: Julieta Jefferson on 06-09-2022 Platelets (Bld) [#/Vol]200 10*3/zC840-044YgolbtoreClermont County Hospital Poikilocytosis [Presence] in Blood by Light microscopyOrdered By: Julieta Jefferson on 57-35-8200Hgwmsdqwtgbkpl LM Ql (Bld)[facility] Polychromasia [Presence] in Blood by Light microscopyOrdered By: Julieta Jefferson on 69-45-7903Pxlabolcpkluk LM Ql (Bld)ModerateClermont County Hospital Protein [Mass/volume] in Serum or PlasmaOrdered By: Julieta Jefferson on 06-09-2022 Protein [Mass/Vol]6.4 g/dL6.1-7.9Clermont County HospitalRB Auto (Bld) [#/Vol]Ordered By: Julieta Jefferson on 00-08-6397IJR (Bld) [#/Vol]3.97 10*6/uL 3.60-5.00Clermont County HospitalRB morphologyOrdered By: Julieta Jefferson on 15-61-4627HNM morphology finding Nom (Bld)N/AFACMC Healthcare System Glenbeighchistocytes [Presence] in Blood by Light microscopyOrdered By: Julieta Jefferson on 50-82-8584Czpgdztcyial LM Ql (Bld)[facility] Medical Centererum or plasma alanine aminotransferase measurement without P-5'-P (enzymatic activiOrdered By: Julieta Jefferson on 11-34-6286QJA No additional P-5'-P [Catalytic activity/Vol]14 U/Q98-05HvkfeymowOur Lady of Mercy Hospital - Andersonerum or plasma albumin/globulin mass ratioOrdered By: Julieta Jefferson on 06-09-2022 Albumin/Globulin [Mass ratio]1.8 {ratio}[facility] - Andersonerum or plasma anion gap determinationOrdered By: Julieta Jefferson on 48-58-0443Tmfqf gap [Moles/Vol]11.5 mmol/L6.0-15.0[facility] - Andersonerum or plasma calcitriol measurement (mass/volume)Ordered By: Julieta Jefferson on ,25- dihydroxyvitamin D3 [Mass/Vol]60.5 pg/mL24.8-81.5FSumma Health Akron CampusComment on above:Performed at: - Lab51 [address] [id number] Director: Jon Horton MD, Phone: [phone] or plasma chloride measurement (moles/volume)Ordered By: Julieta Jefferson on 74-26-8360Ebptyfhz [Moles/Vol]106 mmol/G53-750UylyaeqfdClermont County Hospital Serum or plasma glucose measurement (mass/volume)Ordered By: Julieta Jefferson on 50-04-3806Viinvch [Mass/Vol]78 mg/lT41-859UsbubwddyClermont County Hospital Comment on above:ADA recommended reference rangeRandom Glucose Reference Range is dependent on time and content of last meal. Glucose of more than 200 mg/dL in a nonstressed, ambulatory subject supports the diagnosisof Diabetes Mellitus. Serum or plasma high density lipoprotein (HDL) cholesterol measurementOrdered By: Julieta Jefferson on 16-99-2625Wibjgpywzsx in HDL [Mass/Vol]56 mg/sS24-69YezwohpnoClermont County HospitalComment on above:HDL CHOL ATP-III CLASSIFICATION Cardiovascular RiskHDL > or equal to 60 mg/dL LOWHDL < 40 mg/dL HIGHSerum or plasma potassium measurement (moles/volume)Ordered By: Julieta Jefferson on 06-09-2022 Potassium [Moles/Vol]3.8 mmol/L3.5-5.1FACMC Healthcare System Glenbeigherum or plasma sodium measurement (moles/volume)Ordered By: Julieta Jefferson on 06-09-2022 Sodium [Moles/Vol]137 mmol/P599-700EweibxsowOur Lady of Mercy Hospital - Andersonerum or plasma total bilirubin measurement (mass/volume)Ordered By: Julieta Jefferson on 61-03-7401Lubeewuwk [Mass/Vol]0.3 mg/dL0.3-1.2FSumma Health Akron Campus Serum or plasma total cholesterol/high density lipoprotein (HDL) cholesterol mass ratOrdered By: Julieta Jefferson on 13-12-1442Dpvlzfjbyqc.total/Cholesterol in HDL [Mass ratio]2.4 {ratio}<5.0[facility] DL <= 0.005 mIU/L QnOrdered By: Julieta Jefferson on 12-50-1517GAG Qn4.10 m[IU]/L0.45-5.33 [facility]erm[facility] County HospitalTeardrop cell detectionOrdered By: Julieta Jefferson on 48-48-4037Zupzdalswd LM Ql (Bld)SlightClermont County Hospital Triglyceride [Mass/volume] in Serum or PlasmaOrdered By: Julieta Jefferson on 05-54-9163Ggcufyhnhfcf [Mass/Vol]45 mg/cR86-406OmepilignClermont County Hospital Comment on above:TRIG ATP III CLASSIFICATIONTRIG less than 150 mg/dL NormalTRIG 150-199 mg/dL Borderline highTRIG 200-500 mg/dL High TRIG greater than 500 mg/dL Very highStandard traceable to the Center for Disease Conrtrol and Prevention (CDC) test method.Urea nitrogen [Mass/volume] in Serum or PlasmaOrdered By: Julieta Jefferson on 79-28-8952Jsgo nitrogen [Mass/Vol]6 mg/dL9-Clermont County HospitalWBC Auto (Bld) [#/Vol]Ordered By: Julieta Li on 19-33-0848DKV (Bld) [#/Vol]4.6 10*3/uL3.8-11.6FSumma Health Akron CampusUrine 10 SGon 04-92-8554Uhkkfus DL <= 20 mg/L (U) [Mass/Vol]NegativeNortOfferWire Other pH (U)7.0 [pH][employer] Other urine 10 SGNegativeEland Other Urine 10 SG1.020NoEland Other urine 10 SGlargeNoEland Other Urine Cultureon 33-34-1714Pyuzjyur identified Cx Nom (U)[employer] Other urine culture routineOrdered By: Amanda Ford on 52-61-5606Edmmbyke identified Cx Nom (U)2 DaysClermont County HospitalActivated partial thromboplastin time (aPTT) in platelet poor plasma by coagulation aOrdered By: Phu Hdz on 26-98-8787mZLZ Coag (PPP) [Time] 30.4 s25.1-36.5FSumma Health Akron CampusAutomated erythrocytes count in urine sediment (number/area)Ordered By: Jean Jett on 14-92-9636JMX Auto (Urine sed) [#/Area]Innumerable [HPF]0-4FSumma Health Akron Campus Automated leukocytes count in urine sediment (number/area)Ordered By: Jean Jett on 60-80-0534UJS Auto (Urine sed) [#/Area]3-4 [HPF]0-4FSumma Health Akron CampusAutomated urine sediment calcium oxalate crystal count by microscopy (number/high powOrdered By: Jean Jett on 83-48-9428Ekebpoq oxalate crystals LM.HPF (Urine sed) [#/Area]1+ [HPF][facility] Basophils Auto (Bld) [#/Vol]Ordered By: Jean Jett on 56-44-7261Imchslbhf (Bld) [#/Vol]0.0 10*3/uL0.0-0.2FSumma Health Akron CampusBasophils/100 WBC Auto (Bld)Ordered By: Jean Jett on 92-60-7285Aueiphlza/100 WBC (Bld)0.5 % .Clermont County HospitalBilirubin Test strip Ql (U)Ordered By: Jean Jett on 23-98-4144Mnkislyoq Ql (U)1+NegativeClermont County Hospital Casts typing in urine sediment by light microscopyOrdered By: Jean Jett on 90-86-9865Nttil LM Nom (Urine sed)None seen [LPF]None SeenClermont County HospitalColor Auto (U)Ordered By: Jean Jett on 74-86-8731Nsmqt (U)Red YellowClermont County HospitalCreatinine and Glomerular filtration rate.predicted panel (S/P/Bld)Ordered By: Jean Jett on 02-51-7223Mvjrhryucx [Mass/Vol]0.68 mg/dL0.44-1.03Clermont County HospitalEosinophils Auto (Bld) [#/Vol]Ordered By: Jean Jett on 52-50-6144Xxqxjjivczx (Bld) [#/Vol]0.2 10*3/uL0.0-0.45Clermont County HospitalEosinophils/100 WBC Auto (Bld) Ordered By: Jean Jett on 48-37-1980Bgzpizdnawy/100 WBC (Bld)2.1 %.Clerm[facility] County HospitalErythrocyte distribution width Auto (RBC) [Ratio]Ordered By: Jean Jett on 41-36-8182Bindlagjxfn distribution width (RBC) [Ratio]14.3 % 11.9-15.3FSumma Health Akron CampusEstimated glomerular filtration rate (GFR) non- AmericanOrdered By: Jean Jett on 05-92-0418JTX/1.73 sq M.predicted among non-blacks MDRD (S/P/Bld) [Vol rate/Area]> 60 mL/MinClermont County HospitalHCG ( test) IA.rapid Ql (U)Ordered By: Jean Jett on 11-33-8312ZPK ( test) Ql (U)NegativeClermont County HospitalHematocrit Auto (Bld) [Volume fraction]Ordered By: Jean Jett on 41-97-9091Kvovrraupw (Bld) [Volume fraction]29.4 %34.0-46.4FSumma Health Akron CampusHemoglobin [Mass/volume] in BloodOrdered By: Jean Jett on 69-43-9478Rakapolhok (Bld) [Mass/Vol]9.9 g/dL11.8-15.4FSumma Health Akron CampusKetones Auto test strip (U) [Mass/Vol]Ordered By: Jean Jett on 60-44-2523Dtgdqwj (U) [Mass/Vol]NegativeNegativeClermont County HospitalLaboratory - CoagulationOrdered By: Phu Hdz on 03-56-9344HV Coag (PPP) [Time]12.4 s9.0-12.9Cl[facility]ont County HospitalLaboratory - UrinalysisOrdered By: Jean Jett on 76-61-0540Wslqgnp casts LM Ql (Urine sed) None seen [LPF]0-8Clermont County HospitalLeukocytes [#/volume] corrected for nucleated erythrocytes in Blood by Automated counOrdered By: Jean Jett on 43-06-8431SIZ corrected for nucl RBC Auto (Bld) [#/Vol]8.5 10*3/uL3.8-11.6FSumma Health Akron CampusLymphocytes Auto (Bld) [#/Vol] Ordered By: Jean Jett on 00-91-8320Icmqvnioepr (Bld) [#/Vol]2.1 10*3/uL 1.00-4.8Clermont County HospitalLymphocytes/100 WBC Auto (Bld)Ordered By: Jean Jett on 60-59-6534Qodlweqwjkq/100 WBC (Bld)25.2 %.[facility] SystemH Auto (RBC) [Entitic mass]Ordered By: Jean Jett on 64-87-4760CHJ (RBC) [Entitic mass]28.8 pg24.7-34.3FSumma Health Akron CampusMCHC Auto (RBC) [Mass/Vol]Ordered By: Jean Jett on 91-00-9235MDIE (RBC) [Mass/Vol]33.6 g/dL32.0-35.0Clermont County HospitalMCV Auto (RBC) [Entitic vol]Ordered By: Jean Jett on 85-11-2043CTU (RBC) [Entitic vol]85.7 bT42-647BndkrptstClermont County HospitalMonocyte distribution width [Entitic volume] in Blood by AutomatedOrdered By: Jean Jett on 57-46-0522Ugucwrre distribution width Auto (Bld) [Entitic vol]14.20 %0.00-20.00Clermont County HospitalMonocytes Auto (Bld) [#/Vol]Ordered By: Jean Jett on 04-10-2022 Monocytes (Bld) [#/Vol]0.5 10*3/uL0.0-0.8[facility] Monocytes/100 WBC Auto (Bld)Ordered By: Jean Jett on 28-47-8333Fwvrzvtpa/100 WBC (Bld)5.7 %.[facility] County HospitalNeutrophils Auto (Bld) [#/Vol] Ordered By: Jean Jett on 18-91-7206Ueehkxjxfwj (Bld) [#/Vol]5.6 10*3/uL 1.8-7.7FSumma Health Akron CampusNeutrophils/100 WBC Auto (Bld)Ordered By: Jean Jett on 85-13-3341Nxoeelioifj/100 WBC (Bld)66.5 %.[facility] County HospitalNitrite Test strip Ql (U)Ordered By: Jean Jett on 04-10-2022 Nitrite Ql (U)PositiveNegativeClermont County HospitalNo Panel InformationOrdered By: Jean Jett on 72-68-6182Pjyrdkocx GFR ()> 60 mL/MinClermont County HospitalComment on above:GFR estimated reference range: According to KDOQI guidelines, <60 ml/min/1.73m2 is sufficient todiagnose a patient with chronic kidney disease.Pharmacy Creatinine Clearance (Ycaa985.39Clermont County HospitalNucleated erythrocytes [Presence] in Blood by Automated countOrdered By: Jean Jett on 04-10-2022 Nucleated RBC Auto Ql (Bld)0.0 /100{WBC}0-0.5FSumma Health Akron Campus Platelet mean volume Auto (Bld) [Entitic vol]Ordered By: Jean Jett on 73-27-5957Nywgddal mean volume (Bld) [Entitic vol]6.9 fL6.3-10.7FSumma Health Akron CampusPlatelet poor plasma international normalized ratio (INR) by coagulation assay (relatOrdered By: Phu Hdz on 26-34-1059WYH Coag (PPP) [Relative time]1.1 {INR}[facility] HospitalComment on above: INR Therapeutic Range [...] Auto (Bld) [#/Vol]Ordered By: Jean Jett on 96-48-7901Vcptqafyk (Bld) [#/Vol]263 10*3/uB074-522FejtniwwqClermont County HospitalProtein Auto test strip (U) [Mass/Vol]Ordered By: Jean Jett on 22-52-0612Bptxeiv (U) [Mass/Vol]100 mg/dLNegativeClermont County HospitalRBC Auto (Bld) [#/Vol]Ordered By: Jean Jett on 49-65-8617VLO (Bld) [#/Vol]3.43 10*6/uL 3.60-5.00[facility] Andersonerum or plasma anion gap determinationOrdered By: Jean Jett on 32-31-3295Ubtwd gap [Moles/Vol]8.5 mmol/L6.0-15.0[facility] Andersonerum or plasma calcium measurement (mass/volume)Ordered By: Jean Jett on 43-22-3910Qdxuxra [Mass/Vol]8.6 mg/dL8.2-10.2FACMC Healthcare System Glenbeigherum or plasma chloride measurement (moles/volume)Ordered By: Jean Jett on 04-10-2022 Chloride [Moles/Vol]106 mmol/G72-853LwjraaytvOur Lady of Mercy Hospital - Andersonerum or plasma glucose measurement (mass/volume)Ordered By: Jean Jett on 04-10-2022 Glucose [Mass/Vol]99 mg/dT46-928NvxjfafvyClermont County HospitalComment on above:ADA recommended reference rangeRandom Glucose Reference Range is dependent on time and content of last meal. Glucose of more than 200 mg/dL in a nonstressed, ambulatory subject supports the diagnosisof Diabetes Mellitus.Serum or plasma potassium measurement (moles/volume)Ordered By: Jean Jett on 95-29-6051Nodxqfblx [Moles/Vol]3.6 mmol/L3.5-5.1FACMC Healthcare System Glenbeigherum or plasma sodium measurement (moles/volume)Ordered By: Jean Jett on 00-60-1165Ozakqw [Moles/Vol]138 mmol/H583-884TkxtvxbqhOur Lady of Mercy Hospital - Andersonerum or plasma total carbon dioxide measurement (moles/volume)Ordered By: Jean Jett on 76-46-7695RW2 [Moles/Vol]27.1 mmol/L22.0-30.0[facility] Andersonerum or plasma urea nitrogen measurement (mass/volume)Ordered By: Jean Jett on 04-65-5241Rykh nitrogen [Mass/Vol]5 mg/dL9-23[facility] - Andersonpecific gravity Auto test strip (U) [Rel density]Ordered By: Jean Jett on 17-19-3999Mnefecrp gravity (U) [Rel density]1.0331.001-1.030 [facility] - Andersonquamous epithelial cells detection in urine sediment by light microscopyOrdered By: Jean Jett on 47-25-5503Hxxtifehqi cells.squamous LM Ql (Urine sed)3-4 [HPF]0-2FSumma Health Akron Campus Urine bacteria detection by automated methodOrdered By: Jean Jett on 58-73-1131Fprhukpf Auto Ql (U)None seenNone SeenClermont County HospitalUrine clarity by refractometry automatedOrdered By: Jean Jett on 28-70-1509Jiztask Refractometry automated (U)TurbidClearFSumma Health Akron CampusUrine culture routineOrdered By: Jean Jett on 04-10-2022 Bacteria identified Cx Nom (U)2 DaysClermont County HospitalUrine glucose measurement by automated test strip (mass/volume)Ordered By: Jean Jett on 23-77-3147Hplngud Auto test strip (U) [Mass/Vol]Normal mg/dLCleveland Clinic Mercy HospitalUrine hemoglobin detection by automated test stripOrdered By: Jean Jett on 70-02-3045Oegoaserxx Auto test strip Ql (U)3+ NegativeClermont County HospitalUrine leukocyte esterase detection by automated test stripOrdered By: Jean Jett on 32-04-1081Gnvziemmu esterase Auto test strip Ql (U)2+NegativeClermont County HospitalUrine sediment crystal identification by light microscopyOrdered By: Jean Jett on 04-10-2022 Crystals LM Nom (Urine sed)None seen [HPF][facility] Urobilinogen Auto test strip (U) [Mass/Vol]Ordered By: Jean Jett on 90-46-5146Aosbnhorswnl (U) [Mass/Vol]Normal mg/dLZanesville City HospitalWBC Auto (Bld) [#/Vol]Ordered By: Jean Jett on 00-07-6777YII (Bld) [#/Vol]8.5 10*3/uL3.8-11.6FSumma Health Akron CampuspH Auto test strip (U)Ordered By: Jean Jett on 65-26-9438qV (U)5.5 [pH]5.0-9.0Cl[facility] County HospitalBasophils Auto (Bld) [#/Vol]Ordered By: PROVIDER TEMP on 97-24-6114Wxkiavcof (Bld) [#/Vol]0.0 10*3/uL0.0-0.2FSumma Health Akron CampusBasophils/100 WBC Auto (Bld)Ordered By: PROVIDER TEMP on 04-08-2022 Basophils/100 WBC (Bld)0.4 %.[facility] HospitalEosinophils Auto (Bld) [#/Vol]Ordered By: PROVIDER TEMP on 75-59-2492Vrilcpxlcve (Bld) [#/Vol]0.4 10*3/uL0.0-0.45Cl[facility] County HospitalEosinophils/100 WBC Auto (Bld) Ordered By: PROVIDER TEMP on 00-27-6706Ytpnrtvwbva/100 WBC (Bld)5.5 %.[facility] HospitalErythrocyte distribution width Auto (RBC) [Ratio]Ordered By: PROVIDER TEMP on 56-68-2244Zqjrcilgien distribution width (RBC) [Ratio]14.1 %11.9-15.3FSumma Health Akron CampusHematocrit Auto (Bld) [Volume fraction]Ordered By: PROVIDER TEMP on 84-19-4069Zkzhcrguyu (Bld) [Volume fraction]33.9 %34.0-46.4FSumma Health Akron CampusHemoglobin [Mass/volume] in BloodOrdered By: PROVIDER TEMP on 26-59-6035Wootxxmccm (Bld) [Mass/Vol]11.4 g/dL11.8-15.4FSumma Health Akron CampusLeukocytes [#/volume] corrected for nucleated erythrocytes in Blood by Automated coun Ordered By: PROVIDER TEMP on 32-37-1875TXN corrected for nucl RBC Auto (Bld) [#/Vol]8.1 10*3/uL3.8-11.6FSumma Health Akron CampusLymphocytes Auto (Bld) [#/Vol]Ordered By: PROVIDER TEMP on 26-51-9770Xhzwocrzvet (Bld) [#/Vol]2.3 10*3/uL1.00-4.8Cl[facility] County HospitalLymphocytes/100 WBC Auto (Bld) Ordered By: PROVIDER TEMP on 76-21-2139Gakpqozddvt/100 WBC (Bld)28.1 %.[facility] County HospitalMCH Auto (RBC) [Entitic mass]Ordered By: PROVIDER TEMP on 48-28-2371XHS (RBC) [Entitic mass]29.0 pg24.7-34.3FSumma Health Akron CampusMCHC Auto (RBC) [Mass/Vol]Ordered By: PROVIDER TEMP on 15-69-5387QYIY (RBC) [Mass/Vol]33.7 g/dL32.0-35.0Cl[facility] County HospitalMCV Auto (RBC) [Entitic vol]Ordered By: PROVIDER TEMP on 78-48-0249YHN (RBC) [Entitic vol]86.0 uB46-449ShydvhdqnClermont County HospitalMonocyte distribution width [Entitic volume] in Blood by AutomatedOrdered By: PROVIDER TEMP on 04-08-2022 Monocyte distribution width Auto (Bld) [Entitic vol]13.83 %0.00-20.00Cl[facility] County HospitalMonocytes Auto (Bld) [#/Vol]Ordered By: PROVIDER TEMP on 57-21-1189Etndtuxft (Bld) [#/Vol]0.5 10*3/uL0.0-0.8Cl[facility] County HospitalMonocytes/100 WBC Auto (Bld)Ordered By: PROVIDER TEMP on 04-08-2022 Monocytes/100 WBC (Bld)6.7 %.[facility] County HospitalNeutrophils Auto (Bld) [#/Vol]Ordered By: PROVIDER TEMP on 03-34-7539Rxuwgyfaeri (Bld) [#/Vol]4.8 10*3/uL1.8-7.7FSumma Health Akron CampusNeutrophils/100 WBC Auto (Bld) Ordered By: PROVIDER TEMP on 57-52-0783Cgosnevyhjk/100 WBC (Bld)59.3 %.[facility] County HospitalNucleated erythrocytes [Presence] in Blood by Automated countOrdered By: PROVIDER TEMP on 15-79-8168Uoyuthxcq RBC Auto Ql (Bld)0.2 /100{WBC}0-0.5FSumma Health Akron CampusPlatelet mean volume Auto (Bld) [Entitic vol]Ordered By: PROVIDER TEMP on 84-47-8522Wlwgxgcc mean volume (Bld) [Entitic vol]7.0 fL6.3-10.7FSumma Health Akron CampusPlatelets Auto (Bld) [#/Vol]Ordered By: PROVIDER TEMP on 44-74-7316Uxldgzaxg (Bld) [#/Vol]199 10*3/uL 150-450Clermont County HospitalRBC Auto (Bld) [#/Vol]Ordered By: PROVIDER TEMP on 21-98-4537ARK (Bld) [#/Vol]3.94 10*6/uL3.60-5.00Cl[facility] County HospitalWBC Auto (Bld) [#/Vol]Ordered By: PROVIDER TEMP on 47-60-5222ZYR (Bld) [#/Vol]8.1 10*3/uL3.8-11.6FSumma Health Akron Campus XR shoulder RT min 2V*on 68-95-3134KT shoulder RT min 2V*[facility] [employer] Other XR shoulder RT min 2V*[facility] [employer] Other XR shoulder RT min 2V*[address] [place] [address] [employer] Other XR shoulder RT min 2V*[place] [address] [employer] Other XR shoulder RT min 2V*XRNorth [facility] [employer] Other XR shoulder RT min 2V*[facility] [employer] Other XR shoulder RT min 2V*Patient: Jaz Sanders MR#: [id number] [employer] Other XR shoulder RT min 2V*[address] [employer] Other XR shoulder RT min 2V*: 1995 Acct:[id number] [place] [employer] Other XR shoulder RT min 2V*Age/Sex: 27 / F ADM Date: 03/23/22[place] [employer] Other XR shoulder RT min 2V*[facility]: Type: [facility] [employer] Other XR shoulder RT min 2V*Attending Dr: Amanda Ford APRN, [facility] [employer] Other XR shoulder RT min 2V*Copies to: Amanda Ford APRN, [facility] [employer] Other XR shoulder RT min 2V*Ordering Provider: Amanda Ford APRN, [facility] [employer] Other XR shoulder RT min 2V*Date of Service: 03/23/22[place] [employer] Other XR shoulder RT min 2V* XR/XR shoulder RT min 2V*: Other chronic pain;Pain in right shoulderTopeka [employer] Other XR shoulder RT min 2V*RIGHT SHOULDER - - 3 viewsT[place] [employer] Other XR shoulder RT min 2V*CLINICAL HISTORY: Pain lateral to right shoulder for 6 months.[employer] Other XR shoulder RT min 2V*COMPARISON: [facility] [employer] Other XR shoulder RT min 2V*FINDINGS:[employer] Other XR shoulder RT min 2V*Minimal degenerative changes of the right AC joint. Glenohumeral joint is grossly unremarkable. [facility] [employer] Other XR shoulder RT min 2V*acute bony process.[place] [employer] Other XR shoulder RT min 2V* XR/XR shoulder RT min 2V*[employer] Other XR shoulder RT min 2V*IMPRESSION:[employer] Other XR shoulder RT min 2V*MINIMAL DEGENERATIVE CHANGES. NO ACUTE BONY PROCESS.[employer] Other XR shoulder RT min 2V*Impression dictated by: Sravan Dickinson Jr., D.O.03/23/2022 4:06 [facility] [employer] Other xr shoulder RT min 2V*Dictation Location: [address] [employer] Other xr shoulder RT min 2V*Transcribed By: [facility] 03/23/[address] [place] [address] [employer] Other xr shoulder RT min 2V*Dictated By: Sravan Dickinson Jr, DO 03/23/[address] [place] [address] [employer] Other xr shoulder RT min 2V*Signed By:[employer] Other xr shoulder RT min 2V*03/23/[address] [place] [address] [employer] Other Coding Summary.on 32-30-9124Gsfgig Summary. CD:[id number]:[id number]+PGhlYWQ+HV6XNFJvA77nzJChjB2FP9hGRR1IQPMKVACYZO7DCP2hu CR5CEhvN3YuhjDj [file] cHNl (more content not included)...[facility] HospitalHeart and Vascular Office/Clinic Noteon 14-48-3606Dntin and Vascular Office/Clinic Note Chief Complaint Testing [...] after patient or guardian consented to allow [employer] to record this visit. ANAMARIA account specialist and provider reviewed before signing. ANAMARIA: [...] Family History Bipolar: Sister. Depression: Mother and Grandparent.[facility] HospitalComment on above:Result Comment: Electronically Signed By: Jay DAVEY, Samir Rivera\.br\Date and Time Signed: 09/02/21 09:25 EDT\.br\Electronically Co-Signed By: Rissa Arias\.br\Date and Time Co-Signed: 09/01/21 17:11 EDTCoding Summary.on 52-30-2218Wxbmpf Summary. CD:[id number]:[id number]+PGhlYWQ+DH5KGBLgR08egPIfwF8XT0yKVJ9RFGSLNRGYHN8NNU7zw RW2DMiqL8MmlfLg [file] cHNl (more content not included)...NormalSelect Medical Specialty Hospital - Boardman, IncConsent for Treatmenton 22-49-1285Fnllvum for Treatment [id number]#1.00CD:127NormLakeHealth Beachwood Medical CenterProgress Note-Physicianon 32-86-8299Kifbsqfi Note-Physician [id number]#1.00CD:127NormLakeHealth Beachwood Medical CenterHolter Monitoron 30-51-7849Qxpntc Ilglnqt28-OQNS HOLTER MONITOR ORDERING PHYSICIAN: Samir Christofferson, M.D. [...] READ BY: Mariam Salazar M.D. Dictated: 08/26/2021 [id number] Transcribed: 08/27/2021 cc:Samir Thompson M.D.[facility] HospitalComment on above: Result Comment: Electronically Signed By: Martin DAVEY, Mariam Galan\.br\Date and Time Signed: 08/27/21 10:21 EDTHolter Monitor [id number]#1.00CD:127NoProMedica Flower HospitalConsent for Treatmenton 75-04-1745Nstaqdj for Treatment [id number]#1.00CD:127NoProMedica Flower HospitalCoding Summary.on 80-95-8322Ozfhbn Summary. CD:346613PP:4258340ESx3sMo+PGhlYWQ+JG0CGUXtX56zbYLxbY5YU0aDKP6FJWPISRVNLU8NMZ6hu QP8VNjlQ7EoqfYl [file] cHNl (more content not included)...NormalC[facility] Clinic [facility] Hospitaltre EKG Tracingson 32-80-2285Qtiqmq EKG Tracings [id number]#1.00CD:127[facility] HospitalConsent for Treatmenton 03-41-8765Yzhnffb for Treatment [id number]#1.00CD:127[facility] HospitalCoding Summary.on 99-14-6663Vntxyn Summary. CD:[id number]:[id number]+PGhlYWQ+RS2LZXPhH11wdQKwnI6BP0iERK8TZJFRVTNJFG2AUJ7kj YT8NNoqE4OsdhXt [file] cHNl (more content not included)...[facility] HospitalProgress Note-Physicianon 57-83-2110Ueeekuhg Note-Physician [id number]#1.00CD:127NormLakeHealth Beachwood Medical CenterHeart and Vascular Office/Clinic Noteon 39-67-7134Erkxp and Vascular Office/Clinic NoteChief Complaint Bradycardia History [...] rate increases with exercise. [facility] 2 weeks [facility] for suspected [...] after patient or guardian consented to allow [employer]Xperience to record this visit. ANAMARIA account specialist and provider reviewed before signing. ANAMARIA: [...] Tobacco Use:. Never [place] (more content not included)...[facility]ucl[facility] HospitalComment on above:Result Comment: Electronically Signed By: Samir Thompson MD\.br\Date and Time Signed: 07/27/21 10:44 EDT\.br\Electronically Co-Signed By: Rissa Arias\.br\Date and Time Co-Signed: 07/24/21 16:24 EDTConsent for Treatmenton 66-39-5851Sydjema for [id number]#1.00CD:[address] [place], [place] [address]Referrals Officeon 49-50-4132Zpreezirk Office [id number]#1.00CD:127[facility] HospitalBASIC METABOLIC PANELon 07-61-4287Yehsu gap [Moles/Vol]8 mmol/LLow9 - 17 mmol/LMregency hospital cleveland westy Health- [place], KYBun/Cre RatioNOT REPORTEDMer Health- [place], KYCalcium [Mass/Vol]9.2 mg/dL8.6 - 10.4 mg/dLMercy Health- [place], KYChloride [Moles/Vol]105 mmol/L98 - 107 mmol/LMercy Health- [place], KYCO2 [Moles/Vol]26 mmol/L20 - 31 mmol/L [facility]- [place], KYCreatinine [Mass/Vol]0.67 mg/dL0.5 - 0.9 mg/dLMercy Health- [place], KYGFR >60>60 mL/minMercy Health- [place], KYGFR Non->60>60 mL/minMercy Health- [place], KYGFR/1.73 sq M predicted among non- blacks MDRD (S/P/Bld) [Vol rate/Area]NOT REPORTEDMercy Health- [place], KYGFR/1.73 sq M predicted among non-blacks MDRD (S/P/Bld) [Vol rate/Area][facility]- [place], [place] Comment on above:Average GFR for 20-29 years old: 116 mL/min/1.73sq m Chronic Kidney Disease: <60 mL/min/1.73sq m Kidney failure: <15 mL/min/1.73sq m eGFR calculated using average adult body mass. Additional eGFR calculator available at: [email or web address] Glucose [Mass/Vol]99 mg/dL70 - 99 mg/dLPremier Health [facility], KYInterpretation and review of laboratory resultsAbnormalPremier Health [facility], KYPotassium [Moles/Vol]4.5 mmol/L3.7 - 5.3 mmol/LMCleveland Clinic [facility]inte [facility], KYSodium [Moles/Vol]139 mmol/L135 - 144 mmol/[facility], KYUrea nitrogen [Mass/Vol]5 mg/dLLow6 - 20 mg/dLPremier Health [facility], KYBasic Metabolic Profon 05-08-2020(cont.)[facility] SystemComment on above:Result Comment: Average GFR for 20-29 years old: 116 mL/min/1.73sq m Chronic Kidney Disease: <60 mL/min/1.73sq m Kidney failure: <15 mL/min/1.73sq m eGFR calculated using average adult body mass. Additional eGFR calculator available at: [email or web address] By: #### CBC, PT, PTT, BMP #### [facility] [address] [place] [address] [id number] Clinical Operations Leader: Casey Marques MD #### RICKYT #### [facility] [address] [place] [address] Clinical Operations Leader: Dontae Ward gap [Moles/Vol]8 mmol/LLow9-17Select [facility] Hospital - CantonComment on above:Performed By: #### CBC, PT, PTT, BMP #### [facility] [address] [place] [address] Clinical Operations Leader: Casey Marques MD #### ANICOT #### [facility] [address] [place] [address] Clinical Operations Leader: XIN Wardalcium [Mass/Vol]9.2 mg/dLNormal8.6-10.4[facility] Hospital - CantonComment on above:Performed By: #### CBC, PT, PTT, BMP #### [facility] [address] [place] [address] [phone] Clinical Operations Leader: Casey Marques MD #### ANICOT #### [facility] [address] [place] [address] [phone] Clinical Operations Leader: XIN Wardhloride [Moles/Vol]105 mmol/MIrawtz39-060IcqmcSelect Medical Specialty Hospital - CantonComment on above:Performed By: #### CBC, PT, PTT, BMP #### [address] [phone] Clinical Operations Leader: Casey Marques MD #### ANICOT #### [facility] [address] [place] [address] [phone] Clinical Operations Leader: XIN WardO2 [Moles/Vol]26 mmol/YZvesri45-46FlpikSelect Medical Specialty Hospital - CantonComment on above:Performed By: #### CBC, PT, PTT, BMP #### [address] [phone] Clinical Operations Leader: Casey Marques MD #### ANICOT #### [facility] [address] [place] [address] Clinical Operations Leader: XIN Wardreatinine [Mass/Vol]0.67 mg/dLNormal0.50-0.90 [facility] - CantonComment on above:Performed By: #### CBC, PT, PTT, BMP #### [facility] [address] [place] [address] [phone] Clinical Operations Leader: Casey Marques MD #### ANICOT #### [facility] [address] [place] [address] Clinical Operations Leader: Adolph Diaz MDGFR, Amer>60Normal>60[facility]rovia Community HospitalComment on above:Performed By: #### CBC, PT, PTT, BMP #### [facility] [address] [place] [address] [phone] Clinical Operations Leader: Casey Marques MD #### ANICOT #### [facility] [address] [place], [place] [id number] Clinical Operations Leader: Adolph Diaz MDGFR,non Amer>60Normal>60[facility]via Community HospitalComment on above:Performed By: #### CBC, PT, PTT, BMP #### [facility] [address] [place] [address] [phone] Clinical Operations Leader: Casey Marques MD #### ANICOT #### [facility] [address] [place] [address] Clinical Operations Leader: Adolph Diaz MDGlucose [Mass/Vol]99 mg/zFGgpotx69-48Vmkck [facility]rovia Community HospitalComment on above:Performed By: #### CBC, PT, PTT, BMP #### [facility] [address] [place] [address] [phone] Clinical Operations Leader: Casey Marques MD #### ANICOT #### [facility] [address] [place] [address] Clinical Operations Leader: Brianna Wardssium [Moles/Vol]4.5 mmol/LNormal3.7-5.3[facility]rovia Community HospitalComment on above:Performed By: #### CBC, PT, PTT, BMP #### [facility] [address] [place] [address] [phone] Clinical Operations Leader: Casey Marques MD #### ANICOT #### [facility] [address] [place] [address] Clinical Operations Leader: Adolph Diaz, MDSodium [Moles/Vol]139 mmol/IFijpnq113-776YyuxxSelect Medical Specialty Hospital - CantonComment on above:Performed By: #### CBC, PT, PTT, BMP #### [facility] [address] [place] [address] Clinical Operations Leader: Casey Marques MD #### ANICOT #### [facility] [address] [place], [place] [id number] Clinical Operations Leader: Adolph Diaz MDUrea nitrogen [Mass/Vol]5 mg/dLLow6-20[facility] Hospital - CantonComment on above:Performed By: #### CBC, PT, PTT, BMP #### [facility] [address] [place] [address] Clinical Operations Leader: Casey Marques MD #### ANICOT #### [facility] [address] [place], [place] [id number] Clinical Operations Leader: ANTONIETA Ward/CRE JiOT REPORTEDNormal9-20[facility] Hospital - CantonComment on above:Performed By: #### CBC, PT, PTT, BMP #### [facility] [address] [place] [address] Clinical Operations Leader: Casey Marques MD #### ANICOT #### [facility] [address] [place], [place] [id number] Clinical Operations Leader: JACINTO Wardtaging:NOT REPORTEDNormalSelect Medical Specialty Hospital - CantonComment on above:Performed By: #### CBC, PT, PTT, BMP #### [facility] [address] [place] [address] Clinical Operations Leader: Casey Marques MD #### ANICOT #### [facility] [address] [place] [address] Clinical Operations Leader: Adolph Diaz [facility] WITH AUTO DIFFERENTIALon [id number] (Bld) [#/Vol]0.06 10*3/[facility], KYBasophils/100 WBC (Bld)1 %0 - 2 % [facility], PRDifferential TypeNOT REPORTEDPremier Health [facility], KYEosinophils (Bld) [#/Vol]0.35 10*3/[facility], KYEosinophils/100 WBC (Bld)3 %1 - 4 %[facility], PRErythrocyte distribution width (RBC) [Ratio]14.7 %High11.8 - 14.4 %[facility], PRHematocrit (Bld) [Volume fraction]38.4 %36.3 - 47.1 %[facility], PRHemoglobin (Bld) [Mass/Vol]12.0 g/dL11.9 - 15.1 g/dLPremier Health Miami [facility], PRImmature granulocytes (Bld) [#/Vol]1 %Usav[address]rm[address] [place] [address], [place] Immature granulocytes (Bld) [#/Vol]0.06 10*3/[facility], [place] Interpretation and review of laboratory resultsAbnormCincinnati Children's Hospital Medical Center, [place] Lymphocytes (Bld) [#/Vol]2.21 10*3/[facility], NORMALymphocytes/100 WBC (Bld)21 %Low24 - 43 %[facility], PRMCH (RBC) [Entitic mass]26.5 pg25.2 - 33.5 pgPremier Health [facility], PRMCHC (RBC) [Mass/Vol]31.3 g/dL28.4 - 34.8 g/dLPremier Health [facility], PRMCV (RBC) [Entitic vol]85.0 fL82.6 - 102.9 fLPremier Health Miami [facility], [place] Monocytes (Bld) [#/Vol]0.71 10*3/[facility], KYMonocytes/100 WBC (Bld)7 %3 - 12 %[facility], PRPlatelet mean volume (Bld) [Entitic vol]8.6 fL8.1 - 13.5 fLPremier Health Miami [facility], PRPlatelets (Bld) [#/Vol]256 10*3/[facility], KYPlatelets (Bld) [#/Vol]NOT REPORTEDCleveland Clinic [facility] (Bld) [#/Vol]4.52 10*6/uL3.95 - 5.11 m/[facility], [facility] morphology finding Nom (Bld) ANISOCYTOSIS PRESENTPremier Health [facility], PRSegmented neutrophils/100 WBC (Bld)67 % High36 - 65 %[place], KYSegs Absolute7.30[facility], PRWBC (Bld) [#/Vol]10.7 10*3/uLPremier Health Miami [facility] Hospital [facility], PRWBC (Bld) [#/Vol]0.0 10*3/uL0.0 per 100 WBCPremier Health Miami [facility], [facility] MorphologyNOT REPORTEDMansfield Hospital with Diffon [id number]. Basophil0.06 k/uLNormal0.00-0.20[facility] Hospital - CantonComment on above:Performed By: #### CBC, PT, PTT, BMP #### [facility] [address] [place] [address] [phone] Clinical Operations Leader: Casey Marques MD #### ANALI #### [facility] [address] [place] [address] Clinical Operations Leader: Ashley Ward.Imm.Granulocyte0.06 k/uLNormal0.00-0.30[facility] Hospital - CantonComment on above:Performed By: #### CBC, PT, PTT, BMP #### [facility] [address] [place] [address] Clinical Operations Leader: Casey Marques MD #### RICKYT #### [facility] [address] [place] [address] Clinical Operations Leader: Ashley Ward.Neutrophil (Seg)7.30 k/uLNormal1.50-8.10[facility] Hospital - CantonComment on above:Performed By: #### CBC, PT, PTT, BMP #### [facility] [address] [place] [address] Clinical Operations Leader: Casey Marques MD #### ANICOT #### [facility] [address] [place], [place] [id number] Clinical Operations Leader: Adolph Diaz MDBasophils/100 WBC (Bld)1 %Normal0-2MCalifornia Hospital Medical CenterComment on above:Performed By: #### CBC, PT, PTT, BMP #### [facility] [address] [place] [address] Clinical Operations Leader: Casey Marques MD #### ANICOT #### [address] [phone] Clinical Operations Leader: Adolph Diaz MDEosinophils (Bld) [#/Vol]0.35 10*3/uLNormal 0.00-0.44[facility] Hospital - CantonComment on above:Performed By: #### CBC, PT, PTT, BMP #### [address] [address] Clinical Operations Leader: Casey Marques MD #### ANICOT #### [address] [phone] Clinical Operations Leader: Adolph Diaz MDEosinophils/100 WBC (Bld)3 %Normal1-4[facility] Hospital - CantonComment on above:Performed By: #### CBC, PT, PTT, BMP #### [address] [address] Clinical Operations Leader: Casey Marques MD #### ANICOT #### [address] [phone] Clinical Operations Leader: Adolph Diaz MDErythrocyte distribution width (RBC) [Ratio]14.7 %High11.8-14.4[facility] Hospital - CantonComment on above:Performed By: #### CBC, PT, PTT, BMP #### [facility] [address] [place] [address] Clinical Operations Leader: Casey Marques MD #### ANICOT #### [facility] [address] [place] [address] Clinical Operations Leader: Adolph Diaz MDHematocrit (Bld) [Volume fraction]38.4 %Normal 36.3-47.1MCalifornia Hospital Medical CenterComment on above:Performed By: #### CBC, PT, PTT, BMP #### [facility] [address] [place] [address] Clinical Operations Leader: Casey Marques MD #### ANICOT #### [facility] [address] [place] [address] Clinical Operations Leader: Adolph Diaz MDHemoglobin (Bld) [Mass/Vol]12.0 g/dLNormal 11.9-15.1Mregency hospital cleveland westy [facility] Community HospitalComment on above:Performed By: #### CBC, PT, PTT, BMP #### [facility] [address] [place] [address] Clinical Operations Leader: Casey Marques MD #### ANICOT #### [facility] [address] [place], [place] [id number] Clinical Operations Leader: Adolph Diaz MDImmature granulocytes/100 WBC (Bld)1 %Mbvo2CzxjpSierra View District HospitalComment on above:Performed By: #### CBC, PT, PTT, BMP #### [facility] [address] [place] [address] Clinical Operations Leader: Casey Marques MD #### ANICOT #### [facility] [address] [place], [place] [id number] Clinical Operations Leader: Adolph Diaz MDLymphocytes (Bld) [#/Vol]2.21 10*3/uLNormal 1.10-3.70[facility] - CantonComment on above:Performed By: #### CBC, PT, PTT, BMP #### [address] [address] Clinical Operations Leader: Casey Marques MD #### ANICOT #### [facility] [address] [place], [place] [id number] Clinical Operations Leader: Adolph Diaz MDLymphocytes/100 WBC (Bld)21 %Ekf77-21YeapzSelect Medical Specialty Hospital - CantonComment on above:Performed By: #### CBC, PT, PTT, BMP #### [place] [address] Clinical Operations Leader: Casey Marques MD #### ANICOT #### [address] [phone] Clinical Operations Leader: NIMCO Ward (RBC) [Entitic mass]26.5 qjXeqyii55.2-33.5 [facility] - CantonComment on above:Performed By: #### CBC, PT, PTT, BMP #### [address] [phone] Clinical Operations Leader: Casey Marques MD #### ANICOT #### [address] [phone] Clinical Operations Leader: NIMCO WardC (RBC) [Mass/Vol]31.3 g/iHUuprpu52.4-34.8 [facility] - CantonComment on above:Performed By: #### CBC, PT, PTT, BMP #### [address] 1980908 Clinical Operations Leader: Casey Marques MD #### ANICOT #### [facility] [address] [place], [place] [id number] Clinical Operations Leader: Aodlph Diaz, MDMCV (RBC) [Entitic vol]85.0 sBHrbnjj41.6-102.9 [facility] - CantonComment on above:Performed By: #### CBC, PT, PTT, BMP #### [address] [address] Clinical Operations Leader: Casey Marques MD #### ANICOT #### [facility] [address] [place] [address] Clinical Operations Leader: Adolph Diaz MDMonocytes (Bld) [#/Vol]0.71 10*3/uLNormal 0.10-1.20[facility] - CantonComment on above:Performed By: #### CBC, PT, PTT, BMP #### [address] [address] Clinical Operations Leader: Casey Marques MD #### ANICOT #### [facility] [address] [place] [address] Clinical Operations Leader: YESSICA Wardonocytes/100 WBC (Bld)7 %Normal3-12[facility] - CantonComment on above:Performed By: #### CBC, PT, PTT, BMP #### [address] [address] Clinical Operations Leader: Casey Marques MD #### ANICOT #### [facility] [address] [place] [address] Clinical Operations Leader: Adolph Diaz MDNeutrophil (Seg)67 %Rqdp71-79NcyagSelect Medical Specialty Hospital - CantonComment on above:Performed By: #### CBC, PT, PTT, BMP #### [address] [address] Clinical Operations Leader: Casey Marques MD #### ANICOT #### [facility] [address] [place] [address] Clinical Operations Leader: Adolph Diaz MDNRBC Automated0.0 per 100 WBCNormal0.0[facility] - CantonComment on above:Performed By: #### CBC, PT, PTT, BMP #### [address] [address] Clinical Operations Leader: Casey Marques MD #### ANICOT #### [facility] [address] [place] [address] Clinical Operations Leader: Stephan Ward mean volume (Bld) [Entitic vol]8.6 fL Normal8.1-13.5[facility] Hospital - CantonComment on above:Performed By: #### CBC, PT, PTT, BMP #### [address] [address] Clinical Operations Leader: Casey Marques MD #### ANICOT #### [facility] [address] [place] [address] Clinical Operations Leader: Yajaira Ward (Bld) [#/Vol]256 10*3/uUXzrwxj030-952 [facility] - CantonComment on above:Performed By: #### CBC, PT, PTT, BMP #### [address] [address] Clinical Operations Leader: Casey Marques MD #### ANICOT #### [facility] [address] [place] [address] Clinical Operations Leader: Adolph Diaz MDRBC (Bld) [#/Vol]4.52 10*6/uLNormal3.95-5.11[facility] Hospital - CantonComment on above:Performed By: #### CBC, PT, PTT, BMP #### [address] [address] Clinical Operations Leader: Casey Marques MD #### ANICOT #### [facility] [address] [place] [address] Clinical Operations Leader: RAYMON Ward morphology finding Nom (Bld)ANISOCYTOSIS PRESENTMemorial Health SystemComment on above:Performed By: #### CBC, PT, PTT, BMP #### [facility] [address] [place] [address] Clinical Operations Leader: Casey Marques MD #### ANICOT #### [facility] [address] [place] [address] Clinical Operations Leader: DIEGO Ward (Bld) [#/Vol]10.7 10*3/uLNormal3.5-11.3[facility]rovia Community HospitalComment on above:Performed By: #### CBC, PT, PTT, BMP #### [facility] [address] [place] [address] Clinical Operations Leader: Casey Marques MD #### ANICOT #### [facility] [address] [place] [address] Clinical Operations Leader: Arnav Ward PerformedNOT REPORTEDMemorial Health SystemComment on above:Performed By: #### CBC, PT, PTT, BMP #### [facility] [address] [place] [address] Clinical Operations Leader: Casey Marques MD #### ANICOT #### [facility] [address] [place] [address] Clinical Operations Leader: Stephan Ward EstimateNOT REPORTEDMemorial Health SystemComment on above:Performed By: #### CBC, PT, PTT, BMP #### [facility] [address] [place] [address] Clinical Operations Leader: Casey Marques MD #### ANICOT #### [facility] [address] [place] [address] Clinical Operations Leader: DIEGO Ward MorphologyNOT REPORTEDNormalSelect Medical Specialty Hospital - CantonComment on above:Performed By: #### CBC, PT, PTT, BMP #### [facility] [address] [place] [address] [phone] Clinical Operations Leader: Casey Maqrues MD #### ANICOT #### [facility] [address] [place] [address] Clinical Operations Leader: JACINTO Wardurgical Pathologyon [id number] Pathology Report-- Diagnosis -- STOMACH, SLEEVE GASTRECTOMY: [...] with no areas of granularity or masses. Mathematical Scientist sections 1cs. tm Microscopic Description Sections of gastric mucosa show increased lymphocytes and plasma cells in the lamina propria. There is no evidence of acute inflammation, intestinal metaplasia or dysplasia. There is no evidence of organisms suspicious for Helicobacter with the routine H&E stains. SURGICAL PATHOLOGY CONSULTATION Patient Name: JAZ SANDERS [facility] Rec: [id number] Path Number: [id number] [facility] ANATOMIC PATHOLOGY [address] [place] [phone] [facility]- [place], KYBasic Metabolic Panelon [id number] gap [Moles/Vol]13 mmol/L9 - 17 mmol/LMercy Health- [place], KYBun/Cre RatioNOT REPORTEDMercy Health- [place], KYCalcium [Mass/Vol]9.4 mg/dL8.6 - 10.4 mg/dLMer[facility] Health- [place], KYChloride [Moles/Vol]104 mmol/L98 - 107 mmol/LMercy Health- [place], [place] CO2 [Moles/Vol]23 mmol/L20 - 31 mmol/[facility], KYCreatinine [Mass/Vol] 0.73 mg/dL0.5 - 0.9 mg/dLPremier Health [facility], KYGFR >60>60 mL/min [facility], KYGFR Non->60>60 mL/minPremier Health Miami [facility], [place] GFR/1.73 sq M predicted among non-blacks MDRD (S/P/Bld) [Vol rate/Area]NOT REPORTEDPrem[facility] Health [facility], KYGFR/1.73 sq M predicted among non-blacks MDRD (S/P/Bld) [Vol rate/Area][facility], KYComment on above:Average GFR for 20-29 years old: 116 mL/min/1.73sq m Chronic Kidney Disease: <60 mL/min/1.73sq m Kidney failure: <15 mL/min/1.73sq m eGFR calculated using average adult body mass. Additional eGFR calculator available at: http://www.SalesFloor.it/multiple_crcl_2011.htm Glucose [Mass/Vol]98 mg/dL70 - 99 mg/dLPremier Health [facility], KYPotassium [Moles/Vol] 4.1 mmol/L3.7 - 5.3 mmol/[facility], KYSodium [Moles/Vol]140 mmol/L135 - 144 mmol/[facility], KYUrea nitrogen [Mass/Vol]6 mg/dL6 - 20 mg/dLPremier Health [facility], KYBasic Metabolic Profon 05-07-2020(cont.)[facility]orial Health SystemComment on above:Result Comment: Average GFR for 20-29 years old: 116 mL/min/1.73sq m Chronic Kidney Disease: <60 mL/min/1.73sq m Kidney failure: <15 mL/min/1.73sq m eGFR calculated using average adult body mass. Additional eGFR calculator available at: http://www.SalesFloor.it/multiple_crcl_2012.htmPerformed By: #### CBC, BMP #### [facility] [place] [address] Clinical Operations Leader: Casey Marques MDAnion gap [Moles/Vol]13 mmol/LNormal9-17[facility] - CantonComment on above:Performed By: #### CBC, BMP #### [facility] [address] [place] [address] Clinical Operations Leader: Casey Marques MDCalcium [Mass/Vol]9.4 mg/dLNormal8.6-10.4[facility] - CantonComment on above:Performed By: #### CBC, BMP #### [facility] [address] [place] [address] Clinical Operations Leader: Casey Marques MDChloride [Moles/Vol]104 mmol/YIreygl71-099CgwhhSelect Medical Specialty Hospital - CantonComment on above:Performed By: #### CBC, BMP #### [facility] [address] [place] [address] Clinical Operations Leader: Casey Marques MDCO2 [Moles/Vol]23 mmol/BSentxe65-07LttejSelect Medical Specialty Hospital - CantonComment on above:Performed By: #### CBC, BMP #### [facility] [address] [place] [address] Clinical Operations Leader: Casey Marques MDCreatinine [Mass/Vol]0.73 mg/dLNormal0.50-0.90 [facility] - CantonComment on above:Performed By: #### CBC, BMP #### [facility] [address] [place] [address] Clinical Operations Leader: SIRISHA Capellan, Amer>60Normal>60[facility] - CantonComment on above:Performed By: #### CBC, BMP #### [facility] [address] [place] [address] Clinical Operations Leader: Casey Madoff, MDGFR,non Amer>60Normal>60[facility] - CantonComment on above:Performed By: #### CBC, BMP #### [facility] [address] [place] [address] Clinical Operations Leader: Casey Marques MDGlucose [Mass/Vol]98 mg/wFEfspuy91-43OwnzvCalifornia Hospital Medical CenterComment on above:Performed By: #### CBC, BMP #### [facility] [address] [place] [address] Clinical Operations Leader: VERONICA Capellanotassium [Moles/Vol]4.1 mmol/LNormal3.7-5.3 [facility] - CantonComment on above:Performed By: #### SAGRARIO, BMP #### [address] [address] Clinical Operations Leader: JACINTO Capellanodium [Moles/Vol]140 mmol/HIacsoq581-609SnvfoSelect Medical Specialty Hospital - CantonComment on above:Performed By: #### SAGRARIO, BMP #### [address] [address] Clinical Operations Leader: Casey Marques MDUrea nitrogen [Mass/Vol]6 mg/dLNormal6-20[facility] - CantonComment on above:Performed By: #### SAGRARIO, BMP #### [address] [address] Clinical Operations Leader: Casey Marques MDBUN/CRE RatioNOT REPORTEDNormal9-20[facility] - CantonComment on above:Performed By: #### SAGRARIO, BMP #### [address] [address] Clinical Operations Leader: JACINTO Capellantaging:NOT REPORTEDNormalSelect Medical Specialty Hospital - CantonComment on above:Performed By: #### CBC, BMP #### [facility] [address] [place] [address] Clinical Operations Leader: Nacho Capellan 82-38-8165Enunftshbgj distribution width (RBC) [Ratio]14.4 %Irqrxc10.8-14.4[facility] - CantonComment on above:Performed By: #### CBC, BMP #### [address] [address] Clinical Operations Leader: Casey Marques MDHematocrit (Bld) [Volume fraction]40.4 %Normal 36.3-47.1MCalifornia Hospital Medical CenterComment on above:Performed By: #### CBC, BMP #### [address] [address] Clinical Operations Leader: Casey Marques MDHemoglobin (Bld) [Mass/Vol]12.6 g/dLNormal 11.9-15.1MCalifornia Hospital Medical CenterComment on above:Performed By: #### CBC, BMP #### [address] [address] Clinical Operations Leader: YESSICA CapellanCH (RBC) [Entitic mass]26.1 meAwejsm68.2-33.5 [facility] - CantonComment on above:Performed By: #### CBC, BMP #### [address] [address] Clinical Operations Leader: YESSICA CapellanCHC (RBC) [Mass/Vol]31.2 g/gVZmnoke19.4-34.8 [facility] - CantonComment on above:Performed By: #### CBC, BMP #### [address] [address] Clinical Operations Leader: YESSICA CapellanCV (RBC) [Entitic vol]83.8 aWVfjegx51.6-102.9 [facility] - CantonComment on above:Performed By: #### CBC, BMP #### [address] [address] Clinical Operations Leader: Casey Marques MDNRBC Automated0.0 per 100 WBCNormal0.0[facility] - CantonComment on above:Performed By: #### CBC, BMP #### [facility] [address] [place] [address] Clinical Operations Leader: Jose Capellantelet mean volume (Bld) [Entitic vol]8.7 fL Normal8.1-13.5[facility] - CantonComment on above:Performed By: #### CBC, BMP #### [address] [address] Clinical Operations Leader: VERONICA Capellanlatelets (Bld) [#/Vol]289 10*3/bMJhpkca251-297 [facility] - CantonComment on above:Performed By: #### CBC, BMP #### [address] [address] Clinical Operations Leader: Casey Marques MDRBC (Bld) [#/Vol]4.82 10*6/uLNormal3.95-5.11 [facility] - CantonComment on above:Performed By: #### CBC, BMP #### [address] [address] Clinical Operations Leader: Casey Marques MDWBC (Bld) [#/Vol]13.7 10*3/uLHigh3.5-11.3MCalifornia Hospital Medical CenterComment on above:Performed By: #### CBC, BMP #### [facility] [address] [place] [address] Clinical Operations Leader: Casey Marques MDErythrocyte distribution width (RBC) [Ratio]14.4 %11.8 - 14.4 %[facility], KYHematocrit (Bld) [Volume fraction]40.4 %36.3 - 47.1 %[facility], KYHemoglobin (Bld) [Mass/Vol]12.6 g/dL11.9 - 15.1 g/dL [facility], PRInterpretation and review of laboratory resultsAbnormCincinnati Children's Hospital Medical Center, PRMCH (RBC) [Entitic mass]26.1 pg25.2 - 33.5 [place] MCHC (RBC) [Mass/Vol]31.2 g/dL28.4 - 34.8 g/dLYpsilanti, KYMCV (RBC) [Entitic vol]83.8 fL82.6 - 102.9 fLYpsilanti, KYPlatelet mean volume (Bld) [Entitic vol]8.7 fL8.1 - 13.5 fLPremier Health Miami [facility], PRPlatelets (Bld) [#/Vol]289 10*3/[facility], PRRBC (Bld) [#/Vol]4.82 10*6/uL3.95 - 5.11 m/[facility], PRWBC (Bld) [#/Vol]0.0 10*3/uL0.0 per 100 WBCYpsilanti, KYWBC (Bld) [#/Vol]13.7 10*3/uLHighYpsilanti, KYFL ESOPHAGRAMon 03-02-5049VS ESOPHAGRAMEXAMINATION: SINGLE CONTRAST ESOPHAGRAM 05/07/2020 HISTORY: ORDERING [...] Signed by: Petr Cullen MD 05/07/20 Final resultNoWhite HospitalEXAMINATION: SINGLE CONTRAST ESOPHAGRAM 05/07/2020 HISTORY: ORDERING [...] gastric sleeve. No obstruction. No extravasation of contrast.[facility] Salad LabsSAINT JOHN'S HEALTH SYSTEMGerardo Mhpn Incoming Radiant Results From [employer] - 05/07/2020 10:04 AM EST EXAMINATION: SINGLE [...] IMPRESSION: No extravasation of contrast. [facility] MiamisburgEtransmedia TechnologySAINT JOHN'S HEALTH SYSTEMJacob extravasation of contrast.[facility] Salad LabsSAINT JOHN'S HEALTH SYSTEMNORMAPOCT urine pregnancyon 60-23-1178Pinp HCG ( test) Ql (U)NegativeNEGATIVEPremier Health [facility], NORMAComment on above:Specimens with hCG levels near the threshold of the test (25 mIU/mL) may give a negative or indeterminate result. In such cases, another test should be performed with a new specimen in 48-72 hours. If early is suspected clinically in this setting, correlation with quantitative serum b-hCG level is suggested. Basic Metabolic Panelon [id number] gap [Moles/Vol]10 mmol/L9 - 17 mmol/L [facility] Salad LabsSAINT JOHN'S HEALTH SYSTEM, KYBun/Cre RatioNOT REPORTEDPremier Health [facility], KYCalcium [Mass/Vol]9.5 mg/dL8.6 - 10.4 mg/dLPremier Health Miami [facility], KYChloride [Moles/Vol]103 mmol/L98 - 107 mmol/LMercHCA Florida [facility], KYCO2 [Moles/Vol]19 mmol/LLow20 - 31 mmol/LMCleveland Clinic South Pointe Hospital, KYCreatinine [Mass/Vol]0.9 mg/dL0.5 - 0.9 mg/dLPremier Health Miami [facility], KYGFR >60>60 mL/minPremier Health Miami Valley Hospital [facility], KYGFR Non- >60>60 mL/minPremier Health Miami Valley Hospital North, KYGFR/1.73 sq M predicted among non-blacks MDRD (S/P/Bld) [Vol rate/Area]NOT REPORTEDPremier Health [facility], [place] GFR/1.73 sq M predicted among non-blacks MDRD (S/P/Bld) [Vol rate/Area][facility], KYComment on above:Average GFR for 20-29 years old: 116 mL/min/1.73sq m Chronic Kidney Disease: <60 mL/min/1.73sq m Kidney failure: <15 mL/min/1.73sq m eGFR calculated using average adult body mass. Additional eGFR calculator available at: http://www.SalesFloor.it/TheraTorr Medical_crcl_2011.htm Glucose [Mass/Vol]162 mg/nWLjrr14 - 99 mg/dLPremier Health Miami Valley Hospital [facility], KYInterpretation and review of laboratory resultsAbnormalPremier Health [facility], KYPotassium [Moles/Vol]3.9 mmol/L3.7 - 5.3 mmol/[facility], KYSodium [Moles/Vol]132 mmol/TCnp890 - 144 mmol/[facility], KYUrea nitrogen [Mass/Vol]10 mg/dL6 - 20 mg/dLPremier Health Miami [facility], KYBasic Metabolic Profon 05-06-2020(cont.)NormalSelect Medical Specialty Hospital - CantonComment on above:Result Comment: Average GFR for 20- 29 years old: 116 mL/min/1.73sq m Chronic Kidney Disease: <60 mL/min/1.73sq m Kidney failure: <15 mL/min/1.73sq m eGFR calculated using average adult body mass. Additional eGFR calculator available at: http://www.SalesFloor.it/multiple_crcl_2012.htmPerformed By: #### CBC, BMP #### [facility] [address] [place] [address] Clinical Operations Leader: Casey Marques MDAnion gap [Moles/Vol]10 mmol/LNormal9-17[facility] - CantonComment on above:Performed By: #### CBC, BMP #### [facility] [address] [place] [address] Clinical Operations Leader: Casey Marques MDCalcium [Mass/Vol]9.5 mg/dLNormal8.6-10.4[facility] - CantonComment on above:Performed By: #### CBC, BMP #### [facility] [address] [place] [address] Clinical Operations Leader: Casey Marques MDChloride [Moles/Vol]103 mmol/ECfgiwk62-784PbxtrSelect Medical Specialty Hospital - CantonComment on above:Performed By: #### CBC, BMP #### [facility] [address] [place] [address] Clinical Operations Leader: Casey Marques MDCO2 [Moles/Vol]19 mmol/RYdc01-12AecyeSelect Medical Specialty Hospital - CantonComment on above:Performed By: #### CBC, BMP #### [facility] [address] [place] [address] Clinical Operations Leader: Casey Marques MDCreatinine [Mass/Vol]0.90 mg/dLNormal0.50-0.90 [facility] - CantonComment on above:Performed By: #### CBC, BMP #### [facility] [address] [place] [address] Clinical Operations Leader: SIRISHA Capellan, Amer>60Normal>60[facility] - CantonComment on above:Performed By: #### CBC, BMP #### [facility] [address] [place] [address] Clinical Operations Leader: SIRISHA Capellan,non Amer>60Normal>60[facility] - CantonComment on above:Performed By: #### CBC, BMP #### [facility] [address] [place] [address] Clinical Operations Leader: Casey Marques MDGlucose [Mass/Vol]162 mg/kZBkmd24-72PdnbyCalifornia Hospital Medical CenterComment on above:Performed By: #### CBC, BMP #### [facility] [address] [place] [address] Clinical Operations Leader: Casey Marques MDPotassium [Moles/Vol]3.9 mmol/LNormal3.7-5.3 [facility] - CantonComment on above:Performed By: #### CBC, BMP #### [address] [address] Clinical Operations Leader: JACINTO Capellanodium [Moles/Vol]132 mmol/VTfe040-791UgxhcSelect Medical Specialty Hospital - CantonComment on above:Performed By: #### SAGRARIO, BMP #### [address] [address] Clinical Operations Leader: Casey Marques MDUrea nitrogen [Mass/Vol]10 mg/dLNormal6-20[facility] - CantonComment on above:Performed By: #### CBC, BMP #### [address] [address] Clinical Operations Leader: ROSALBA CapellanN/CRE RatioNOT REPORTEDNormal9-20[facility] - CantonComment on above:Performed By: #### CBC, BMP #### [address] [address] Clinical Operations Leader: JACINTO Capellantaging:NOT REPORTEDNormalSelect Medical Specialty Hospital - CantonComment on above:Performed By: #### CBC, BMP #### [address] [address] Clinical Operations Leader: Nacho Capellan 82-79-1483Onafvzbaxsn distribution width (RBC) [Ratio]14.6 %High11.8-14.4[facility] - CantonComment on above:Performed By: #### CBC, BMP #### [address] [address] Clinical Operations Leader: Casey Marques MDHematocrit (Bld) [Volume fraction]42.5 %Normal 36.3-47.1MCalifornia Hospital Medical CenterComment on above:Performed By: #### CBC, BMP #### [address] [address] Clinical Operations Leader: Casey Marques MDHemoglobin (Bld) [Mass/Vol]12.8 g/dLNormal 11.9-15.1MCalifornia Hospital Medical CenterComment on above:Performed By: #### CBC, BMP #### [address] [address] Clinical Operations Leader: YESSICA CapellanCH (RBC) [Entitic mass]26.9 vcUikmqg78.2-33.5 [facility] - CantonComment on above:Performed By: #### CBC, BMP #### [address] [address] Clinical Operations Leader: YESSICA CapellanCHC (RBC) [Mass/Vol]30.1 g/dSSoupqc08.4-34.8 [facility] - CantonComment on above:Performed By: #### CBC, BMP #### [address] [address] Clinical Operations Leader: YESSICA CapellanCV (RBC) [Entitic vol]89.3 yROyurmf61.6-102.9 [facility] - CantonComment on above:Performed By: #### CBC, BMP #### [address] [address] Clinical Operations Leader: RAMONE Capellan Automated0.0 per 100 WBCNormal0.0[facility] Hospital - CantonComment on above:Performed By: #### CBC, BMP #### [facility] [address] [place] [address] Clinical Operations Leader: Jose Capellantebrigid mean volume (Bld) [Entitic vol]8.4 fL Normal8.1-13.5[facility] Hospital - CantonComment on above:Performed By: #### CBC, BMP #### [facility] [address] [place] [address] Clinical Operations Leader: Jose Capellantelets (Bld) [#/Vol]300 10*3/nVSterfd770-430 [facility] - CantonComment on above:Performed By: #### CBC, BMP #### [facility] [address] [place] [address] Clinical Operations Leader: MADDI CapellanBC (Bld) [#/Vol]4.76 10*6/uLNormal3.95-5.11 [facility] - CantonComment on above:Performed By: #### CBC, BMP #### [address] [address] Clinical Operations Leader: DIEGO Capellan (Bld) [#/Vol]14.3 10*3/uLHigh3.5-11.3MCalifornia Hospital Medical CenterComment on above:Performed By: #### CBC, BMP #### [facility] [address] [place] [address] Clinical Operations Leader: NIDIA Capellan without Diffon 75-34-5768Sveqmsnwavo distribution width (RBC) [Ratio]14.6 %High11.8 - 14.4 %[place] Hematocrit (Bld) [Volume fraction]42.5 %36.3 - 47.1 %[place], [place] Hemoglobin (Bld) [Mass/Vol]12.8 g/dL11.9 - 15.1 g/dLYpsil[place], [place] Interpretation and review of laboratory resultsAbnormalHenry County HospitalH (RBC) [Entitic mass]26.9 pg25.2 - 33.5 pgYps[place], KYMCHC (RBC) [Mass/Vol]30.1 g/dL28.4 - 34.8 g/dLYpsil[place], KYMCV (RBC) [Entitic vol] 89.3 fL82.6 - 102.9 fLYpsil[place], KYPlatelet mean volume (Bld) [Entitic vol]8.4 fL8.1 - 13.5 fLYpsil[place], KYPlatelets (Bld) [#/Vol]300 10*3/uL [place], KYRBC (Bld) [#/Vol]4.76 10*6/uL3.95 - 5.11 m/uLYps[place], KYWBC (Bld) [#/Vol]14.3 10*3/uLHighY[place], KYWBC (Bld) [#/Vol]0.0 10*3/uL0.0 per 100 WBCYpsil[place], KYSurgical Pathologyon 05-06-2020 Surgical Pathology(NOTE) -- Diagnosis [...] with no areas of granularity or masses. Mathematical Scientist sections 1cs. tm Microscopic Description Sections of gastric mucosa show increased lymphocytes and plasma cells in the lamina propria. There is no evidence of acute inflammation, intestinal metaplasia or dysplasia. There is no evidence of organisms suspicious for Helicobacter with the routine BRI stains. SURGICAL PATHOLOGY CONSULTATION Patient Name: JAZ SANDERS [facility] Rec: [id number] Path Number: [id number] [facility] ANATOMIC PATHOLOGY [address] [place] [id number] NoWhite HospitalComment on above: Performed By: #### CBC, PT, PTT, BMP #### [facility] [address] [place] [phone] Clinical Operations Leader: aCsey Marques MD #### ANICOT #### [facility] [address] [place] [address] Clinical Operations Leader: YU WardCoV-2on 21-45-1797ECQJ-CoV-2NMercy Health Perrysburg HospitalComment on above:Performed By: #### COVID #### [address] [id number] Clinical Operations Leader: Tracie Capellan2Not DetectedNoalNOTDEAshtabula General HospitalComment on above:Result Comment: The specimen is [...] this assay. Fact sheet for Healthcare Providers: https://www.fda.gov/media/225703/download Fact sheet for Patients: https://www.fda.gov/media/405874/download METHODOLOGY: RT-PCRPerformed By: #### COVID #### [facility] [address] [place] [address] Clinical Operations Leader: YU CapellanCoV-2,[facility] Comment on above:Performed By: #### COVID #### [facility] [address] [place] [address] Clinical Operations Leader: YU CapellanCoV-2on 82-82-7294RGGY-CoV-2 Source .NASOPHARYNGEAL SWABGenesis HospitalComment on above:Performed By: #### COVID #### [facility] [address] [place] [address] Clinical Operations Leader: Ilana Capellan [address]-DO-Ehahagow<2NAultman Orrville HospitalComment on above:Performed By: #### CBC, PT, PTT, BMP #### [facility] [address] [place] [address] Clinical Operations Leader: Casey Marques MD #### ANICOT #### [facility] [address] [place], [place] [id number] Clinical Operations Leader: Ariella Ward<2NormalSelect Medical Specialty Hospital - Canton Comment on above:Performed By: #### CBC, PT, PTT, BMP #### [facility] [address] [place] [address] Clinical Operations Leader: Casey Marques MD #### ANICOT #### [facility] [address] [place], [place] [id number] Clinical Operations Leader: Jaja Wardotine<2NormalSelect Medical Specialty Hospital - Canton Comment on above:Result Comment: (NOTE) Consistent with [...] positive. Test developed and characteristics determined by [facility]. See Compliance Statement B: Open CS.com/CS Performed By: [facility] [address] [place] [address] Research And Development Director: VERONICA Barerformed By: #### CBC, PT, PTT, BMP #### [facility] [place] [address] Clinical Operations Leader: Casey Marques MD #### ANICOT #### [facility] [address] [place] [address] Clinical Operations Leader: Shani WardPaintsville Arh Hospital 19753-JG-Ybwbzmyz<2ng/mL [facility]- [place], KYCotinine<2ng/mLMerMensajeros [facility]- [place], KYNicotine<2ng/mLMercy Health- [place], KYComment on [...] positive. Test developed and characteristics determined by [employer]. See Compliance Statement B: Open CS.com/CS Performed By: [facility] [address] [place] [address] Research And Development Director: Lynn Layne MD EKG 12 Leadon 97-17-2497Yefcov Lpxo87WEUOjpyoFayette County Memorial Hospital, KYP Yrym12ytmhqavYugrp Health- [place], KYP-R Vtaeirlk863 [facility] [place], KYQ-T Xmjmjddg576 [facility], KYQRS Xvnowube04 [facility] [place], KYQTc Calculation (Tamelatt)500 [facility], KYR Wisn14aazwzlgTdmpo Health- [place], KYT Tunn89vkzmeerRboso Health- [place], KYVentricular Ncfv36MPSWvzab Health- [place], KYNormal sinus rhythm with sinus arrhythmia Prolonged QT Abnormal ECG No previous ECGs availablePremier Health Miami [facility] Hospital [facility], Silver [place] Incoming [facility] [place]23/[place] 12:32 PM EST Normal sinus rhythm with sinus arrhythmia Prolonged QT Abnormal ECG No previous ECGs availablePremier Health Miami Valley Hospital [facility], PRAPTSage Memorial Hospital [id number] Coag (Bld) [Time]22.2 bChujuw96.5-30.5Select [facility] Specialty Hospital - CantonComment on above: Result Comment: IV Heparin Therapy Range: 48.6-77.8Performed By: #### CBC, PT, PTT, BMP #### [facility] [address] [place] [address] Clinical Operations Leader: Casey Marques MD #### ANICOT #### [facility] [address] [place] [address] Clinical Operations Leader: Adolph Diaz MDaPTGino Coag (Bld) [Time]22.2 [facility], [place] Comment on above: IV Heparin Therapy Range: 48.6-77.8 Basic Metabolic Panelon 68-15-7930Qbwet gap [Moles/Vol]12 mmol/L9 - 17 mmol/L [facility], KYBun/Cre RatioNOT REPORTEDPremier Health [facility], KYCalcium [Mass/Vol]9.2 mg/dL8.6 - 10.4 mg/dLPremier Health Miami [facility], KYChloride [Moles/Vol]104 mmol/L98 - 107 mmol/LMCleveland Clinic South Pointe Hospital, KYCO2 [Moles/Vol]23 mmol/L20 - 31 mmol/L [facility], KYCreatinine [Mass/Vol]0.69 mg/dL0.5 - 0.9 mg/dLPremier Health Miami [facility], KYGFR >60>60 mL/minPremier Health Miami Valley Hospital North, KYGFR Non->60>60 mL/minPremier Health Miami Valley Hospital [facility], KYGFR/1.73 sq M predicted among non- blacks MDRD (S/P/Bld) [Vol rate/Area]NOT REPORTEDPremier Health [facility], KYGFR/1.73 sq M predicted among non-blacks MDRD (S/P/Bld) [Vol rate/Area][facility], [place] Comment on above:Average GFR for 20-29 years old: 116 mL/min/1.73sq m Chronic Kidney Disease: <60 mL/min/1.73sq m Kidney failure: <15 mL/min/1.73sq m eGFR calculated using average adult body mass. Additional eGFR calculator available at: http://www.SalesFloor.it/multiple_crcl_2011.htm Glucose [Mass/Vol]123 mg/kBQrip01 - 99 mg/dLPremier Health Miami [facility], KYInterpretation and review of laboratory resultsAbnormalPremier Health [facility], KYPotassium [Moles/Vol]4.1 mmol/L3.7 - 5.3 mmol/LMCleveland Clinic South [facility]inte Hospital, KYSodium [Moles/Vol]139 mmol/L135 - 144 mmol/LMCleveland Clinic South Pointe Hospital, KYUrea nitrogen [Mass/Vol]7 mg/dL6 - 20 mg/dLPremier Health [facility], KYBasic Metabolic Profon 04-22-2020(cont.)NormalSelect Medical Specialty Hospital - CantonComment on above:Result Comment: Average GFR for 20-29 years old: 116 mL/min/1.73sq m Chronic Kidney Disease: <60 mL/min/1.73sq m Kidney failure: <15 mL/min/1.73sq m eGFR calculated using average adult body mass. Additional eGFR calculator available at: http://www.[employer] System.TAXI5.pl/multiple_crcl_2012.htmPerformed By: #### CBC, PT, PTT, BMP #### [facility] [address] [place] [address] Clinical Operations Leader: Casey Marques MD #### ANICOT #### [facility] [address] [place] [address] Clinical Operations Leader: Dontae Ward gap [Moles/Vol]12 mmol/LNormal9-17[facility] Hospital - CantonComment on above:Performed By: #### CBC, PT, PTT, BMP #### [address] [address] Clinical Operations Leader: Casey Marques MD #### ANICOT #### [address] [address] Clinical Operations Leader: XIN Wardalcium [Mass/Vol]9.2 mg/dLNormal8.6-10.4[facility] - CantonComment on above:Performed By: #### CBC, PT, PTT, BMP #### [address] [address] Clinical Operations Leader: Casey Marques MD #### ANICOT #### [facility] [address] [place] [address] Clinical Operations Leader: XIN Wardhloride [Moles/Vol]104 mmol/GVsclan34-888VtoyoSelect Medical Specialty Hospital - CantonComment on above:Performed By: #### CBC, PT, PTT, BMP #### [facility] [address] [place] [address] Clinical Operations Leader: Casey Marques MD #### ANICOT #### [facility] [address] [place] [address] Clinical Operations Leader: XIN WardO2 [Moles/Vol]23 mmol/EThdeyv73-22UuzzpSelect Medical Specialty Hospital - CantonComment on above:Performed By: #### CBC, PT, PTT, BMP #### [facility] [address] [place] [address] Clinical Operations Leader: Casey Marques MD #### ANICOT #### [facility] [address] [place] [address] Clinical Operations Leader: XIN Wardreatinine [Mass/Vol]0.69 mg/dLNormal0.50-0.90 [facility] - CantonComment on above:Performed By: #### CBC, PT, PTT, BMP #### [facility] [address] [place] [address] Clinical Operations Leader: Casey Marques MD #### ANICOT #### [facility] [address] [place], [place] [id number] Clinical Operations Leader: Adolph Diaz MDGFR, Amer>60Normal>60[facility] - CantonComment on above:Performed By: #### CBC, PT, PTT, BMP #### [facility] [address] [place] [address] Clinical Operations Leader: Casey Marques MD #### ANICOT #### [facility] [address] [place] [address] Clinical Operations Leader: Adolph Diaz MDGFR,non Amer>60Normal>60[facility] - CantonComment on above:Performed By: #### CBC, PT, PTT, BMP #### [facility] [address] [place] [address] Clinical Operations Leader: Casey Marques MD #### ANICOT #### [facility] [address] [place] [address] Clinical Operations Leader: Adolph Diaz MDGlucose [Mass/Vol]123 mg/wYJces39-45TddaeCalifornia Hospital Medical CenterComment on above:Performed By: #### CBC, PT, PTT, BMP #### [address] [address] Clinical Operations Leader: Casey Marques MD #### ANICOT #### [facility] [address] [place] [address] Clinical Operations Leader: VERONICA Wardotassium [Moles/Vol]4.1 mmol/LNormal3.7-5.3MCalifornia Hospital Medical CenterComment on above:Performed By: #### CBC, PT, PTT, BMP #### [address] [address] Clinical Operations Leader: Casey Marques MD #### ANICOT #### [address] [address] Clinical Operations Leader: JAICNTO Wardodium [Moles/Vol]139 mmol/VPztbfc758-451YmyncSelect Medical Specialty Hospital - CantonComment on above:Performed By: #### CBC, PT, PTT, BMP #### [address] [address] Clinical Operations Leader: Casey Marques MD #### ANICOT #### [facility] [address] [place] [address] Clinical Operations Leader: Adolph Diaz MDUrea nitrogen [Mass/Vol]7 mg/dLNormal6-20[facility] - CantonComment on above:Performed By: #### CBC, PT, PTT, BMP #### [address] [address] Clinical Operations Leader: Casey Marques MD #### ANICOT #### [facility] [address] Clinical Operations Leader: Adolph Diaz MDBUTanja/CRE RatioNOT REPORTEDNocentral harnett hospital20[facility] - CantonComment on above:Performed By: #### CBC, PT, PTT, BMP #### [facility] [address] [place] [address] Clinical Operations Leader: Casey Marques MD #### ANICOT #### [facility] [address] [place] [address] Clinical Operations Leader: JACINTO Wardtaging:NOT REPORTEDNoalSelect Medical Specialty Hospital - CantonComment on above:Performed By: #### CBC, PT, PTT, BMP #### [facility] [address] [place] [address] Clinical Operations Leader: Casey Marques MD #### ANICOT #### [facility] [address] [place] [address] Clinical Operations Leader: XIN Wardmanisha 12-53-4500Xwpfwnjrmmc distribution width (RBC) [Ratio]14.6 %High11.8-14.4[facility] - CantonComment on above:Performed By: #### CBC, PT, PTT, BMP #### [facility] [address] [address] Clinical Operations Leader: Casey Marques MD #### ANICOT #### [facility] [address] [place] [address] Clinical Operations Leader: Adolph Diaz MDHematocrit (Bld) [Volume fraction]40.8 %Normal 36.3-47.1[facility] Community HospitalComment on above:Performed By: #### CBC, PT, PTT, BMP #### [facility] [address] [address] Clinical Operations Leader: Casey Marques MD #### ANICOT #### [facility] [address] [place], [place] [id number] Clinical Operations Leader: Adolph Diaz MDHemoglobin (Bld) [Mass/Vol]12.8 g/dLNormal 11.9-15.1MCalifornia Hospital Medical CenterComment on above:Performed By: #### CBC, PT, PTT, BMP #### [address] [id number] Clinical Operations Leader: Casey Marques MD #### ANICOT #### [facility] [address] [place], [place] [id number] Clinical Operations Leader: YESSICA WardCH (RBC) [Entitic mass]26.5 lmHuhwhg72.2-33.5 [facility] - CantonComment on above:Performed By: #### CBC, PT, PTT, BMP #### [address] [address] Clinical Operations Leader: Casey Marques MD #### ANICOT #### [facility] [address] [place], [place] [id number] Clinical Operations Leader: NIMCO WardC (RBC) [Mass/Vol]31.4 g/bGDiaauv99.4-34.8 [facility] - CantonComment on above:Performed By: #### CBC, PT, PTT, BMP #### [address] [id number] Clinical Operations Leader: Casey Marques MD #### ANICOT #### [facility] [address] [place], [place] [address] Clinical Operations Leader: YESSICA WardCV (RBC) [Entitic vol]84.5 eQPlylzb47.6-102.9 [facility] - CantonComment on above:Performed By: #### CBC, PT, PTT, BMP #### [address] [address] Clinical Operations Leader: Casey Marques MD #### ANICOT #### [facility] [address] [place] [address] Clinical Operations Leader: Adolph Diaz MDNRBC Automated0.0 per 100 WBCNormal0.0[facility] - CantonComment on above:Performed By: #### CBC, PT, PTT, BMP #### [facility] [address] [place] [address] Clinical Operations Leader: Casey Marques MD #### ANICOT #### [facility] [address] [place] [address] Clinical Operations Leader: Stephan Ward mean volume (Bld) [Entitic vol]8.7 fL Normal8.1-13.5[facility] - CantonComment on above:Performed By: #### CBC, PT, PTT, BMP #### [place], [place] [address] Clinical Operations Leader: Casey Marques MD #### ANICOT #### [facility] [address] [place] [address] Clinical Operations Leader: Yajaira Ward (Bld) [#/Vol]298 10*3/xRPihgnr446-331 [facility] CantonComment on above:Performed By: #### CBC, PT, PTT, BMP #### [place] [address] Clinical Operations Leader: Casey Marques MD #### ANICOT #### [facility] [address] [place] [address] Clinical Operations Leader: RAYMON Ward (Bld) [#/Vol]4.83 10*6/uLNormal3.95-5.11[facility] - CantonComment on above:Performed By: #### CBC, PT, PTT, BMP #### [place] [id number] Clinical Operations Leader: Casey Marques MD #### ANICOT #### [facility] [address] [place] [address] Clinical Operations Leader: Adolph Diaz MDWBC (Bld) [#/Vol]10.8 10*3/uLNormal3.5-11.3[facility] HospitalComment on above:Performed By: #### CBC, PT, PTT, BMP #### [facility] [address] [place], [place] [id number] Clinical Operations Leader: Casey Marques MD #### ANICOT #### [facility] [address] [place] [address] Clinical Operations Leader: Adolph Diaz MDErythrocyte distribution width (RBC) [Ratio]14.6 %High11.8 - 14.4 %[facility], PRHematocrit (Bld) [Volume fraction]40.8 % 36.3 - 47.1 %[facility], PRHemoglobin (Bld) [Mass/Vol]12.8 g/dL11.9 - 15.1 g/dLPremier Health Miami Valley Hospital [facility], PRInterpretation and review of laboratory resultsAbnormal [facility], [facility] (RBC) [Entitic mass]26.5 pg25.2 - 33.5 pgPremier Health [facility], [facility] (RBC) [Mass/Vol]31.4 g/dL28.4 - 34.8 g/dLPremier Health [facility], [facility] (RBC) [Entitic vol]84.5 fL82.6 - 102.9 fLGood Samaritan Hospital- [place], PRPlatelet mean volume (Bld) [Entitic vol]8.7 fL8.1 - 13.5 fLGood Samaritan Hospital- [place], KYPlatelets (Bld) [#/Vol]298 10*3/uLGood Samaritan Hospital- [place], KYRBC (Bld) [#/Vol]4.83 10*6/uL3.95 - 5.11 m/[facility]- [place], KYWBC (Bld) [#/Vol]10.8 10*3/uLPremier Health Miami Valley Hospital NorthNORMAWBC (Bld) [#/Vol]0.0 10*3/uL0.0 per 100 WBCPremier Health Miami Valley Hospital NorthHectoron [id number] acute cardiopulmonary findingsPremier Health Miami [facility] Hospital NorthNORMAEXAMINATION: TWO XRAY VIEWS OF THE CHEST 04/22/2020 2:46 pm COMPARISON: Baseline examination HISTORY:ORDERING SYSTEM PROVIDED HISTORY: preop gastric bypass [employer] TECHNOLOGIST PROVIDED HISTORY: preop gastric bypass Ben En Y Reason for Exam: preop gastric bypass FINDINGS: Normal cardiopericardialsilhouette There are no significant pleural, parenchymal, mediastinal or osseous findingsPremier Health Miami [facility] Hospital NorthNORMASilver [place] Incoming Radiant Results From the[facility] - 04/22/2020 3:28 PM EST EXAMINATION: TWO XRAY VIEWS OF THE CHEST 04/22/2020 2:46 pm COMPARISON: Baseline examination HISTORY: ORDERING SYSTEM PROVIDED HISTORY: preop gastric bypass Ben En Y TECHNOLOGIST PROVIDED HISTORY: preop gastric bypass Ben En Y Reason for Exam: preop gastric bypass FINDINGS: Normal cardiopericardial silhouette There are no significant pleural, parenchymal, mediastinal or osseous findings IMPRESSION: No acute cardiopulmonary findings [facility] NorthEricka [id number] Coag (PPP) [Relative time]0.9 {INR}Normal [facility] - CantonComment on above:Result Comment: Therapeutic Range: Moderate Anticoagulant Intensity: INR = 2.0-3.0 High Anticoagulant Intensity: INR = 2.5-3.5Performed By: #### CBC, PT, PTT, BMP #### [facility] [address] [place], [place] [id number] Clinical Operations Leader: Casey Marques MD #### ANICOT #### [facility] [address] [place] [address] Clinical Operations Leader: CULLEN Ward Coag (PPP) [Time]9.3 sNormal9.0-12.0[facility] - CantonComment on above:Performed By: #### CBC, PT, PTT, BMP #### [facility] [address] [place] [address] Clinical Operations Leader: Casey Marques MD #### ANALI #### [facility] [address] [place] [address] Clinical Operations Leader: VERONICA Wardrotime-INRon [id number] Coag (PPP) [Relative time]0.9 {INR}[employer], NORMAComsinai-grace hospital on above: Therapeutic Range: Moderate Anticoagulant Intensity: INR = 2.0-3.0 High Anticoagulant Intensity: INR = 2.5-3.5 PT Coag (PPP) [Time]9.3 sMohiohealth shelby hospital [place], KYXR CHEST (2 VW)on [id number] CHEST (2 VW)EXAMINATION: TWO XRAY VIEWS OF [...] Signed by: Roxanne Avitia MD 04/22/20 Final resultNoWhite [facility] Vital Signs Date TimeVital SignValuePerforming BimpvxmkkBxvyikyi36-38-8636 13:26-0500Body mass index (BMI) [Ratio]40.03 kg/c7Lgzwk Juan DO Work Phone: [facility]oplinWreqfoofdl33-94-4993 13:26-0500Body wmejsw247.18 kgCorey Juan DO Work Phone: [facility]oplinKdaadrlmyb96-65-5564 13:26-0500Diastolic blood erjzabkd28 mm[Hg]Les Juan DO Work Phone: [facility]oplinBbmnncsxba50-50-0112 13:26-0500Systolic blood nxirbuyu515 mm[Hg]Les Juan DO Work Phone: [facility]oplinMczyexobss97-58-9869 14:43-0400Body mass index (BMI) [Ratio]39.77 kg/m2Amy Kwaku PA Work Phone: [phone])195-[facility]oplinSweoxvreqp04-60-0454 14:43-0400Body .33 kgAmy Kwaku PA Work Phone: [facility]oplinShiaovqlqx35-13-7256 14:43-0400Diastolic blood bfgemmpu87 mm[Hg]Jojo Ames PA Work Phone: [phone]-[facility] JoplinTklmuafjft42-88-4567 14:43-0400Systolic blood rgbnypah128 mm[Hg]Jojo Pelaezey PA Work Phone: [phone] [place], [place] [address]Kdnrdcbvrh04-18-2362 11:34-0400Body mass index (BMI) [Ratio]38.49 kg/a3RiyirvxbMima Duenas SOLDERER ASSEMBLY REPAIR Work Phone: [phone])340-[facility] JoplinLvpffwikns82-12-3398 11:34-0400Body pelfep834.19 kgMima Duenas SOLDERER ASSEMBLY REPAIR Work Phone: [phone] [place], [place] [address]Hzzkppdnpt76-51-0066 11:34-0400Diastolic blood mm[Hg]Mima Duenas SOLDERER ASSEMBLY REPAIR Work Phone: [phone] [place], [place] [address]Ewllxorgrg63-78-2381 11:34-0400Systolic blood oxabalxo179 mm[Hg]Mima Duenas SOLDERER ASSEMBLY REPAIR Work Phone: [phone] [place], [place] [address]Bznpmdjlrg33-61-8747 10:01-0400Body mass index (BMI) [Ratio]36.79 kg/m2Amy Kwaku PA Work Phone: [phone] [place], [place] [address]Olqxzeohnu57-13-9120 10:01-0400Body .66 kgAmy Fairfield PA Work Phone: [phone] [place], [place] [address]Sdruidfclw02-84-3359 10:01-0400Diastolic blood fagxsstp15 mm[Hg]Jojo Ames PA Work Phone: [phone] [place], [place] [address]Vsoahbwduf16-29-5995 10:01-0400Systolic blood mm[Hg]Jojo Ames PA Work Phone: [phone] [place], [place] [address]Oucblknbiy58-15-4216 12:46-0400Body xfkexe689.3 cmEnrike Lindquist MD Work Phone: [phone] [place], [place] 2904708-20-2025 12:46-0400Body mass index (BMI) [Ratio]35.84 kg/o2SoalgxpeEnrike Lindquist MD Work Phone: [phone] [place], [place] 2904708-20-2025 12:46-0400Body bxxgoh725.57 kgEnrike Lindquist MD Work Phone: [phone] [place], [place] 2904708-20-2025 12:46-0400Diastolic blood ozhvgkth76 mm[Hg]Enrike Lindquist MD Work Phone: [phone])[address] [place], [place] 2904708-20-2025 12:46-0400Heart rate 73 /minEnrike Lindquist MD Work Phone: [phone] [place], [place] 2904708-20-2025 12:46-0400Systolic blood hzfrcufw50 mm[Hg]Enrike Lindquist MD Work Phone: [phone] [place], [place] 2904708-17-2025 23:35-0400Body .34 cmAmanda Shethrbacher RESEARCH METHODOLOGIST Work Phone: [facility]08-17-2025 23:35-0400 Body wakuqhvfaib01.2 [degF]Amanda Ford RESEARCH METHODOLOGIST Work Phone: [facility]08-17-2025 23:35-0400 Body .66 kgAmanda Shethrbacher RESEARCH METHODOLOGIST Work Phone: [facility]08-17-2025 23:35-0400 Diastolic blood uotjfxlq27 mm[Hg]Amanda Ford RESEARCH METHODOLOGIST Work Phone: [facility]08-17-2025 23:35-0400 Heart rate75 /minArtemionnedmundo Shethrbacher RESEARCH METHODOLOGIST Work Phone: [facility]08-17-2025 23:35-0400 Respiratory rate16 /minAmanda Shethrbacher RESEARCH METHODOLOGIST Work Phone: [facility]08-17-2025 23:35-0400 SaO2% (BldA) [Mass fraction]97 %Amanda Ford RESEARCH METHODOLOGIST Work Phone: [facility]08-17-2025 23:35-0400 Systolic blood wllqmweo272 mm[Hg]Amanda Hahnnikkie RESEARCH METHODOLOGIST Work Phone: [facility]08-05-2025 10:37-0400 Body ibejpw292.1216 kgAmanda Ford RESEARCH METHODOLOGIST Work Phone: [facility]08-05-2025 09:10-0400 Body mass index (BMI) [Ratio]35.7 kg/t7Brqlc Juan DO Work Phone: [facility]linCngxvzbgwx84-79-1548 09:10-0400Body seyqfr857.12 kgCorey Juan DO Work Phone: [facility]linGrmofvtjnc19-49-7999 09:10-0400Diastolic blood bdfwgosr11 mm[Hg]Les Juan DO Work Phone: [facility]linPvyqfpowqg93-67-9687 09:10-0400Systolic blood cmnpshom931 mm[Hg]Les Juan DO Work Phone: [facility]linMrosicfjsn33-21-2507 11:28-0400Body mass index (BMI) [Ratio]31.24 kg/e0Tpicb Juan DO Work Phone: [facility]oplinIbvqujkmge37-47-6384 11:28-0400Body iefniy088.61 kgCorey Juan DO Work Phone: [facility]linHparlwnfhf05-49-9672 11:28-0400Diastolic blood mkvkbomq40 mm[Hg]Les Juan DO Work Phone: [facility]oplinBkpasciejf49-18-9273 11:28-0400Systolic blood osqvqiin867 mm[Hg]Les Juan DO Work Phone: [facility] JoplinOyhzbzojul52-70-7609 13:34-0400Diastolic blood whdoudlz43 mm[Hg]Amanda Logan RESEARCH METHODOLOGIST Work Phone: [facility]07-03-2025 13:34-0400 Heart rate60 /Juan Pablo Logan RESEARCH METHODOLOGIST Work Phone: [phone]07-03-2025 13:34-0400 Respiratory rate18 /Jhonnyaicha Ford RESEARCH METHODOLOGIST Work Phone: [phone]07-03-2025 13:34-0400 SaO2% (BldA) [Mass fraction]99 %Amanda Logan RESEARCH METHODOLOGIST Work Phone: [phone]07-03-2025 13:34-0400 Systolic blood gcbbarbq778 mm[Hg]Amanda Shethbilly RESEARCH METHODOLOGIST Work Phone: [phone] [place], [place] 8380207-03-2025 10:38-0400 Body rsfiru286.34 cmAmanda Shethbilly RESEARCH METHODOLOGIST Work Phone: [phone]07-03-2025 10:38-0400 Body ocbxxjurlqx63.1 [degF]Amanad Shethbilly RESEARCH METHODOLOGIST Work Phone: [phone]07-03-2025 10:38-0400 Body .85 kgAmanda Shethbilly RESEARCH METHODOLOGIST Work Phone: [phone]06-05-2025 15:06-0400 Body mass index (BMI) [Ratio]31.24 kg/m2[facility]06-05-2025 15:06-0400Body wksrqa233.61 [facility]Lee[facility]06-05-2025 15:06-0400 Diastolic blood ryovudav41 mm[Hg][facility]06-05-2025 15:06-0400 Systolic blood whzpccai280 mm[Hg][facility]05-07-2025 10:04-0400 Body munojw782.3 Kam Sinclair MD Work Phone: [phone]05-07-2025 10:04-0400Body mass index (BMI) [Ratio]29.99 kg/b8FhocaDarleen Sinclair MD Work Phone: [phone] [place], [place] 5658405-07-2025 10:04-0400Body elknko40.52 kgDarleen Sinclair MD Work Phone: [phone] [place], [place] 5658405-07-2025 10:04-0400Diastolic blood mm[Hg]Darleen Sinclair MD Work Phone: [phone] [place], [place] 5658405-07-2025 10:04-0400Heart rate67 /min Darleen Sinclair MD Work Phone: [phone] [place], [place] 5658405-07-2025 10:04-0400Respiratory rate16 /minDarleen Sinclair MD Work Phone: [phone])[address] [place], [place] 5658405-07-2025 10:04-2862FbQ3% (BldA) [Mass fraction]99 %Darleen Sinclair MD Work Phone: [phone])[address] [place], [place] 5658405-07-2025 10:04-0400Systolic blood puedsjau874 mm[Hg]Darleen Sinclair MD Work Phone: [phone] [place], [place] 5658401-09-2025 08:32-0500Body ialvww644.34 cmClermont [facility]01-09-2025 08:32-0500Body mass index (BMI) [Ratio]30.4 kg/x1JgaioudntClermont County Hospital01-09-2025 08:32-0500Body gcyfselrqtz31.3 [degF][facility]01-09-2025 08:32-0500Body bonnao10.99 kgClermont County Hospital01-09-2025 08:32-0500Diastolic blood utdetgah24 mm[Hg][facility]01-09-2025 08:32-0500 Heart rate73 /minClermont County Hospital01-09-2025 08:32-8978WdO7% (BldA) [Mass fraction]98 %[facility]01-09-2025 08:32-0500 Systolic blood mbaimpzx423 mm[Hg][facility]11-12-2024 14:03-0500Body wjxcva078.3 cmIgnacio Guy MD Work Phone: [phone] Hospitals Ahuja Medical CenterYnzvce86-60-6724 14:03-0500Body mass index (BMI) [Ratio]30.23 kg/x1KoydngIgnacio Guy MD Work Phone: [facility]and Zncecn24-82-2692 14:03-0500Body tftybc39.3 kgIgnacio Guy MD Work Phone: [facility] hospitaland Hvwlqp29-01-7306 15:12-0500Body mass index (BMI) [Ratio]31.71 kg/r2Sadco Juan DO Work Phone: [facility]linOymtuwqdrp68-83-4956 15:12-0500Body .25 kgCorey Juan DO Work Phone: [facility]linHalqsqjggp34-01-0051 15:12-0500Diastolic blood xrvrsayx59 mm[Hg]Les Juan DO Work Phone: [facility]oplinMyqhofoile60-64-9518 15:12-0500Systolic blood nonjuewn611 mm[Hg]Les Juan DO Work Phone: [facility]oplinQsdygczbnx90-63-2766 11:46-0400Diastolic blood wgbvrvep96 mm[Hg]MELY Ford Work Phone: [facility]08-21-2024 11:46-0400 Heart rate76 /minAPRTanja Ford Work Phone: [facility]08-21-2024 11:46-0400 Respiratory rate16 /minAPRTanja Ford Work Phone: [facility]08-21-2024 11:46-0400 SaO2% (BldA) [Mass fraction]99 %MELY Ford Work Phone: [facility]08-21-2024 11:46-0400 Systolic blood obkhyhkk435 mm[Hg]MELY Ford Work Phone: [phone]08-21-2024 10:20-0400 Body vihxvusihbs81 [degF]MELY Ford Work Phone: [phone]08-21-2024 09:55-0400 Inhaled oxygen flow rate3 L/minMELY Ford Work Phone: [phone]08-21-2024 06:29-0400 Body sfouoy282.34 Justo Hahnr Work Phone: [phone]08-21-2024 06:29-0400 Body ypudbr93.25 kgMELY Hahnr Work Phone: [phone]07-16-2024 11:56-0400 Body oomvlt371.34 Justo Hahnr Work Phone: [phone]07-16-2024 11:56-0400 Body mass index (BMI) [Ratio]28.8 kg/m2MELY Hahnr Work Phone: [phone]07-16-2024 11:56-0400 Body qbvaoq36.89 kgMELY Hahnr Work Phone: [phone] [place], [place] 8380202-21-2024 14:56-0500 Body .34 cmClermont [facility] Hospital02-21-2024 14:56-0500Body mass index (BMI) [Ratio]29.4 kg/s6QxvbwtshsClermont County Hospital02-21-2024 14:56-0500Body mbkrue39.7 kgClermont County Hospital02-21-2024 14:56-0500Diastolic blood irjwplcr11 mm[Hg][facility] 06-08-2023 14:56-0500Heart rate51 /minClermont County Hospital 06-08-2023 14:56-6128IwT3% (BldA) [Mass fraction]98 %[facility]02-21-2024 14:56-0500Systolic blood xapuwafg625 mm[Hg][facility]01-30-2024 14:30-0500Body ivmwvd909.34 cmGuillepamela Millerley Other [facility]01-30-2024 14:30-0500 Body mass index (BMI) [Ratio]27.47 kg/d5CgbsoRomeo Santana Other [employer] Other 01-30-2024 14:30-0500Body eazozy58.36 kgGuillepamela Esther Other [employer] Other 01-30-2024 14:30-0500Body ijdsmh81.35 kgClermont County Hospital10-23-2023 14:30-0400Body xpwnau818.34 cmPetr Lay Other [employer] Other 10-23-2023 14:30-0400Body mass index (BMI) [Ratio] 27.61 kg/t5BzajqjvPetr Lay Other [employer] Other 10-23-2023 14:30-0400Body gqgfsfbmgiv48.1 [degF] Petr Lay Other [employer] Other 10-23-2023 14:30-0400Body pqyofp06.81 kgPetr Lay Other [employer] Other 10-23-2023 14:30-0400Diastolic blood cfpfjehm29 mm[Hg] Petr Lay Other [employer] Other 10-23-2023 14:30-0982AqP1% (BldA) [Mass fraction]99 % Petr Lay Other [employer] Other 10-23-2023 14:30-0400Systolic blood simusrzy091 mm[Hg] Petr Lay Other [employer] Other 09-11-2023 11:30-0400Body jnhvae442.34 cmMajose guadalupe Lay Other [employer] Other 09-11-2023 11:30-0400Body mass index (BMI) [Ratio] 28.03 kg/j6OdsigwfPetr Lay Other [employer] Other 09-11-2023 11:30-0400Body zfzyyd98.17 kgMajose guadalupe Lay Other [employer] Other 09-11-2023 11:30-0400Diastolic blood mm[Hg] Petr Lay Other [employer] Other 09-11-2023 11:30-0400Respiratory rate18 /minMattnany Lay Other [employer] Other 09-11-2023 11:30-0045JiM1% (BldA) [Mass fraction]99 % Petr Lay Other [employer] Other 09-11-2023 11:30-0400Systolic blood qcftsgbe446 mm[Hg] Petr Lay Other [employer] Other 06-26-2023 13:30-0400Body bvbuti074.34 cmMajose guadalupe Lay Other [employer] Other 06-26-2023 13:30-0400Body mass index (BMI) [Ratio] 28.78 kg/b2ZhwpxoyPetr Lay Other [employer] Other 06-26-2023 13:30-0400Body iweybg02.62 kgPetr Lay Other [employer] Other 06-26-2023 13:30-0400Diastolic blood dbuvencp29 mm[Hg] Petr Lay Other [employer] Other 06-26-2023 13:30-0400Respiratory rate18 /minPetr Lay Other [employer] Other 06-26-2023 13:30-8238LgI8% (BldA) [Mass fraction]98 % Petr Lay Other [employer] Other 06-26-2023 13:30-0400Systolic blood baqejtbg551 mm[Hg] Petr Lay Other [employer] Other 06-15-2023 08:00-0400Body uadlgz428.34 cmJephamifer Merylrbacher Other [employer] Other 06-15-2023 08:00-0400Body mass index (BMI) [Ratio] 28.03 kg/k5Ixtnphmd Rohrbacher Other [employer] Other 06-15-2023 08:00-0400Body wfxyjf61.17 kgJephamifer Rohrbacher Other [employer] Other 06-15-2023 08:00-0400Diastolic blood wnflqsry68 mm[Hg] Amanda Rosarioacher Other [employer] Other 06-15-2023 08:00-9714YjE3% (BldA) [Mass fraction]95 % Amanda Jovanir Other [employer] Other 06-15-2023 08:00-0400Systolic blood orobcaex561 mm[Hg] Amanda Jovanir Other [employer] Other 05-10-2023 15:30-0400Body waiaro607.34 cmAmanda Merylrbacher Other [employer] Other 05-10-2023 15:30-0400Body mass index (BMI) [Ratio] 29.15 kg/b9Jhwdwkta Merylrbacher Other [employer] Other 05-10-2023 15:30-0400Body yecmws69.8 kgAmanda Merylrbacher Other [employer] Other 05-10-2023 15:30-0400Diastolic blood xvbevqal71 mm[Hg] Amanda Rosarioacher Other [employer] Other 05-10-2023 15:30-0400Systolic blood dypgaflb208 mm[Hg] Amanda Merylrbacher Other [employer] Other 05-05-2023 11:00-0400Body qdjuhj798.34 cmAmanda Shethrbacher Other [employer] Other 05-05-2023 11:00-0400Body mass index (BMI) [Ratio] 28.73 kg/s5AbdzkyrjAmanda Ford Other [employer] Other 05-05-2023 11:00-0400Body bgvwor58.44 kgAmanda Ford Other [employer] Other 05-05-2023 11:00-0400Diastolic blood sgoevomn95 mm[Hg] Amanda Shethbilly Other [employer] Other 05-05-2023 11:00-2195FlO5% (BldA) [Mass fraction]100 % Amanda Logan Other [employer] Other 05-05-2023 11:00-0400Systolic blood qarsbrch590 mm[Hg] Amanda Logan Other [employer] Other 02-24-2023 16:43-0500Body sstmnqzatjp79.1 [degF]MD Mariam Appiah Work Phone: [facility]02-24-2023 16:43-0500 Diastolic blood mjlgqzzy24 mm[Hg]MD Mariam Appiah Work Phone: [facility]02-24-2023 16:43-0500 Heart rate60 /minMD Mariam Appiah Work Phone: [facility]02-24-2023 16:43-0500 Respiratory rate16 /minMD Mariam Appiah Work Phone: [facility]02-24-2023 16:43-0500 SaO2% (BldA) [Mass fraction]100 %MD Mariam Appiah Work Phone: 1(035)[address] [place], [place] 3678602-24-2023 16:43-0500 Systolic blood mm[Hg]MD Mariam Appiah Work Phone: 1(612)[address] [place], [place] 3678602-24-2023 09:40-0500 Body yrbmix930.34 cmMD Mariam Appiah Work Phone: 1(038)[address] [place], [place] 3678602-24-2023 05:42-0500 Body tliihq96 kgMD Mariam Appiah Work Phone: 1(058)[address] [place], [place] 3678602-23-2023 17:55-0500 Body nemggolpjhn60.1 [degF]MD Mariam Appiah Work Phone: 1(834)[address] [place], [place] 3678602-23-2023 17:55-0500 Diastolic blood hqywpefh61 mm[Hg]MD Mariam Appiah Work Phone: 1(037)[address] [place], [place] 3678602-23-2023 17:55-0500 Heart rate62 /minMD Mariam Appiah Work Phone: 1(009)[address] [place], [place] 3678602-23-2023 17:55-0500 Respiratory rate18 /minMD Mariam Appiah Work Phone: 1(130)[address] [place], [place] 3678602-23-2023 17:55-0500 SaO2% (BldA) [Mass fraction]100 %MD Mariam Appiah Work Phone: 1(859)[address] [place], [place] 3678602-23-2023 17:55-0500 Systolic blood oenoriia566 mm[Hg]MD Mariam Appiah Work Phone: 1(860)[address] [place], [place] 3678602-23-2023 14:22-0500 Body .34 cmMD Mariam Appiah Work Phone: 1(574)[address] [place], [place] 3678602-23-2023 14:22-0500 Body qejaxm81.7 kgMD Mariam Appiah Work Phone: 1(632)[address] [place], [place] 3678601-04-2023 15:00-0500 Body qizgii874.34 cmAmanda Ponceacher Other [employer] Other 01-04-2023 15:00-0500Body mass index (BMI) [Ratio] 27.81 kg/g5QaiarublAmanda Shethbilly Other [employer] Other 01-04-2023 15:00-0500Body sovnnukgkco00.2 [degF] Amanda Logan Other [employer] Other 01-04-2023 15:00-0500Body gvatea98.45 kgAmanda Shethsarahachenikkie Other [employer] Other 01-04-2023 15:00-0500Diastolic blood fsixggsp82 mm[Hg] Amanda Logan Other [employer] Other 01-04-2023 15:00-0500Respiratory rate18 /minAmanda Shethbilly Other [employer] Other 01-04-2023 15:00-2805RsG8% (BldA) [Mass fraction]99 % Amandarufino Ford Other [employer] Other 01-04-2023 15:00-0500Systolic blood xiddycnz821 mm[Hg] Amanda Ford Other [employer] Other 12-24-2022 21:41-0500Diastolic blood hpoofyuu84 mm[Hg] MD Mariam Appiah Work Phone: [facility]12-24-2022 21:41-0500 Systolic blood fiydiwqi124 mm[Hg]MD Mariam Appiah Work Phone: 1(000)[address] [place], [place] 3678612-24-2022 18:14-0500 Body vbohsm155.34 cmMD Mariam Appiah Work Phone: 1(261)[address] [place], [place] 3678612-24-2022 18:14-0500 Body izjutexvycu55.1 [degF]MD Mariam Appiah Work Phone: 1(636)[address] [place], [place] 3678612-24-2022 18:14-0500 Body rsoekb97 kgMD Mariam Appiah Work Phone: 1(809)[address] [place], [place] 3678612-24-2022 18:14-0500 Heart xblp866 /minMD Mariam Appiah Work Phone: 1(410)[address] [place], [place] 3678612-24-2022 18:14-0500 Respiratory rate18 /minMD Mariam Appiah Work Phone: 1(309)[address] [place], [place] 3678612-24-2022 18:14-0500 SaO2% (BldA) [Mass fraction]100 %MD Mariam Appiah Work Phone: 1(907)[address] [place], [place] 3678612-22-2022 17:15-0500 Body oaqgjfcjktt06.5 [degF]MD Mariam Appiah Work Phone: 1(815)[address] [place], [place] 3678612-22-2022 17:15-0500 Diastolic blood ihnkqybg52 mm[Hg]MD Mariam Appiah Work Phone: 1(423)[address] [place], [place] 3678612-22-2022 17:15-0500 Heart rate59 /minMD Mariam Appiah Work Phone: 1(917)[address] [place], [place] 3678612-22-2022 17:15-0500 Respiratory rate18 /minMD Mariam Appiah Work Phone: 1(154)[address] [place], [place] 3678612-22-2022 17:15-0500 SaO2% (BldA) [Mass fraction]100 %MD Mariam Appiah Work Phone: 1(952)[address] [place] [address] [id number] 17:15-0500 Systolic blood wkroqbif825 mm[Hg]MD Mariam Appiah Work Phone: [facility]12-22-2022 14:33-0500 Body yfesmo198.34 cmMD Mariam Appiah Work Phone: [facility]12-22-2022 14:33-0500 Body runoxy82.1 kgMD Mariam Appiah Work Phone: [facility]12-06-2022 15:30-0500 Body gueabd294.34 cmAmanda Shethrbacher Other [employer] Other 12-06-2022 15:30-0500Body mass index (BMI) [Ratio] 27.05 kg/c3UpqydsyfAmanda Ponceacher Other [employer] Other 12-06-2022 15:30-0500Body iwllcw23 kgJeaicha Merylrbacher Other [employer] Other 12-06-2022 15:30-0500Diastolic blood ykbmxciy03 mm[Hg] Amanda Ford Other [employer] Other 12-06-2022 15:30-5252YzP3% (BldA) [Mass fraction]98 % Amanda Ford Other [employer] Other 12-06-2022 15:30-0500Systolic blood bphfdosj023 mm[Hg] Amanda Ford Other [employer] Other 10-24-2022 10:00-0400Body yzykwp929.34 cmAmanda Shethrbacher Other [facility] [facility] [employer] Other 10-24-2022 10:00-0400Body mass index (BMI) [Ratio] 27.47 kg/e0KffjoqtoAmanda Ford Other [facility] [employer] Other 10-24-2022 10:00-0400Body noekzx24.36 kgAmanda Shethsarahangelnikkie Other [facility] [employer] Other 10-24-2022 10:00-0400Diastolic blood dsbkartc31 mm[Hg] Amanda Logan Other [facility] [employer] Other 10-24-2022 10:00-0400Systolic blood rnruoqhc432 mm[Hg] Amanda Logan Other [place] [employer] Other 05-17-2022 14:38-0400Blood Pressure LocationSamir [facility] 14:38-0400 Diastolic blood afjffpwy98 mm[Hg][facility]05-17-2022 14:38-0400Heart rate61 /minSamir [facility]05-17-2022 14:38-0400 Respiratory rate18 /minSamir [facility]05-17-2022 14:38-1580RhP5% (BldA) [Mass fraction]100 %[facility]05-17-2022 14:38-0400 Systolic blood ljylrwrn480 mm[Hg][facility]04-08-2022 14:39-0400Blood Pressure LocationSamir Thompson [facility]04-08-2022 14:39-0400 Diastolic blood wymrljmg38 mm[Hg][facility]04-08-2022 14:39-0400Heart rate65 /minRogean Jay [facility]04-08-2022 14:39-0400 Respiratory rate18 /minSamir [facility] [place]04-08-2022 14:39-0598MmC4% (BldA) [Mass fraction]100 %Samir [facility]04-08-2022 14:39-0400 Systolic blood polmgsmc083 mm[Hg][facility] [place]03-31-2022 11:00-0400Body .34 cmArtemioaicha Ponceachenikkie Other [employer] Other 03-31-2022 11:00-0400Body mass index (BMI) [Ratio] 29.15 kg/e6VatylxlbAmanda Hahnr Other [employer] Other 03-31-2022 11:00-0400Body .8 kgAmanda Ponceacher Other [employer] Other 03-31-2022 11:00-0400Diastolic blood fraxhhhb34 mm[Hg] Amanda Ford Other [employer] Other 03-31-2022 11:00-9943OgO5% (BldA) [Mass fraction]98 % Amanda Ford Other [employer] Other 03-31-2022 11:00-0400Systolic blood ngeqkvcs788 mm[Hg] Amanda Ford Other [employer] Other 01-21-2021 08:20-0500Body Auacebayctq64.7 [degF] [facility], RF80-61-6144 08:20-0500BP Olskyjjxo43 mm[Hg] [facility], YQ22-78-3433 08:20-0500BP Ztxcvajo269 mm[Hg] [facility], SM63-91-7756 08:20-0500Pulse (Heart Rate)101 /min[facility], QY55-82-3565 08:20-0500Pulse Hosupuxm98 % [facility], QT21-22-8102 08:20-0500Respiratory Rate19 /min [facility], DV27-37-2971 08:51-0500BMI (Body Mass Index) 58.86 kg/d0NiomlkzNorthcrest Medical Center, NQ86-93-9007 08:51-0500Body weight 191.42 kgNorth[facility], RB97-37-0495 08:51-4768Xvbrgr230.3 cm [facility], ET96-50-4465 13:30-0500BMI (Body Mass Index) 61.79 kg/m2[address], XP02-26-7348 13:30-0500Body Pcqweteursd80.11 [degF][address], YB26-85-8956 13:30-0500Body lhsqje186.94 kgStvz 2 [facility], AW62-06-7048 13:30-0500BP Hyirluzdq59 mm[Hg][address], XG40-03-6803 13:30-0500BP Dmcepqsu942 mm[Hg]Stv[address] [place] [address], WS88-58-9190 13:30-9001Bydonk557.[address] [place] [address], YS24-95-0508 13:30-0500Pulse (Heart Rate)104 /minStvz [address] [place] [address], DE44-24-0809 13:30-0500Pulse Dsyfilly45 %Stv[address] [place] [address], FL06-33-0626 13:30-0500 Respiratory Rate18 /minStvz [address] [place] [address], [place] Encounters Encounter DateEncounter TypeCare ProviderFacilityStart: 02-26-2025 End: 33-69-1551Jdjflbjel Result EncounterCorey Juan DO Work Phone: noms External Department UnsolicitedStart: 02-26-2025 End: 86-68-8299Znptbghgo Result EncounterCorey Juan DO Work Phone: noms External Department UnsolicitedStart: 02-19-2025 End: 14-36-6189Muyjot flowsheetCorey Juan DO Work Phone: noms [facility] OBGYNStart: 02-19-2025 End: 74-10-2757Hnsaua flowsheetCorey Juan DO Work Phone: noms [facility] OBGYNStart: 02-19-2025 End: 20-06-8104Gqxsltzdd Result EncounterCorey Juan DO Work Phone: noms External Department UnsolicitedStart: 02-19-2025 End: 52-62-2679lueycrquksUUGTX FAZIONot AvailableStart: 02-19-2025 End: 82-49-7568Ecmycd outpatient visit 15 minutesCorey Juan DO Work Phone: noms [facility] OBGYNComment on above:Third trimester ([facility]); 31 weeks gestation of ([facility]); TSH (thyroid-stimulating hormone deficiency); H/O gastric sleeveStart: 02-07-2025 End: 37-31-0037YuzfgfMolly Whitaker Women's Services 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 Tray Casting Machine Operator - Emily LowndesboroComment on above:Hypothyroidism affecting in second trimester (Primary Dx); headache in second trimester; Previous gastric bypass affecting , antepartum; 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 ([facility])Start: 02-06-2025 End: 82-92-9688Mlwqbl outpatient visit 15 minutesJojo OGDEN Work Phone: NOMS [facility] OBGYNComment on above:Third trimester ([facility]); 29 weeks gestation of ([facility])Start: 02-06-2025 End: 77-35-2146hskorgmmajKZO RAMEYNot AvailableStart: 02-06-2025 End: 37-48-2227Zjofri Shakeel OGDEN Work Phone: N[facility] OBGYNStart: 02-06-2025 End: 11-87-6214Utmdcw Shakeel OGDEN Work Phone: [facility] OBGYNStart: 01-30-2025 End: 20-19-8330qtfqnbqwltAOLIERNA TONYERMalgorzata AvailableStart: 01-16-2025 End: 43-41-0780Uocacm Eliecer Duenas SOLDERER ASSEMBLY REPAIR Work Phone: N[facility] OBGYNStart: 01-16-2025 End: 15-54-5389Ocbfzf Eliecer Duenas SOLDERER ASSEMBLY REPAIR Work Phone: [facility] OBGYNStart: 01-16-2025 End: 90-28-1356Afnwjo outpatient visit 15 minutesMima Duenas NP Work Phone: N[facility] Ricco OBGYNComment on above:26 weeks gestation of ([facility]); Second trimester ([facility]); TSH (thyroid-stimulating hormone deficiency)Start: 01-16-2025 End: 09-82-6623tofntyzbydLJDPOIDQ EBERLYNot AvailableStart: 01-11-2025 End: 11-67-4201Smzipyjmg Result EncounterCorey Juan DO Work Phone: noms External Department UnsolicitedStart: 01-11-2025 End: 99-47-6436Vyswtymfk Result EncounterCorey Juan DO Work Phone: noms External Department UnsolicitedStart: 01-09-2025 End: 67-78-0833Tjlkkvflp Result EncounterAmy Kwaku OGDEN Work Phone: noms External Department UnsolicitedStart: 01-09-2025 End: 84-16-0046Aspbfoqvl Result EncounterAmy Kwaku OGDEN Work Phone: noms External Department UnsolicitedStart: 01-04-2025 End: 48-32-1373Mtnadt Rosanna Dick RNMaternal- Medicine at [facility] HospitalComment on above:Previous gastric bypass affecting , antepartum (Primary Dx); Hypothyroidism affecting in second trimester; 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 ([facility]); Obesity affecting in second trimester, unspecified obesity typeStart: 01-03-2025 End: 30-51-3057qyeekxmgdwMP PCP NO [facility] Ambulatory PPGStart: 01-03-2025 End: 26-13-3530Ndriajugo encounterRoslyn Griffin RNMaternal Medicine [facility]Start: 12-19-2024 End: 29-88-7073Thpqub flowsheetJojo OGDEN Work Phone: N[facility] OBGYNStart: 12-19-2024 End: 03-54-7509Sdmfdf flowsheetJojo OGDEN Work Phone: [facility] OBGYNStart: 12-19-2024 End: 09-96-4076Oiiovs outpatient visit 15 minutesJojo OGDEN Work Phone: N[facility] OBGYNComment on above:22 weeks gestation of ([facility]); Second trimester ([facility]); Thyroid disease ; H/O gastric sleeve; H/O iron deficiency anemia; Diabetes mellitus screeningStart: 12-19-2024 End: 95-77-5514dgqtwgcfdvVZD RAMEYNot AvailableStart: 12-15-2024 End: 81-04-5365Dhbjysmol Result EncounterCorey Juan DO Work Phone: noms External Department UnsolicitedStart: 12-15-2024 End: 39-76-8858Icinyqaqb Result EncounterCorey Juan DO Work Phone: noms External Department UnsolicitedStart: 12-05-2024 End: 54-22-2252Vidpbs consultation new/estab patient 80 Bal Lindquist MD Work Phone: [phone]-Gbsyx Medicine at [facility] Comment on above:20 weeks gestation of (Primary Dx); Previous gastric bypass affecting , antepartum; Obesity affecting in second trimester, unspecified obesity type; Hypothyroidism affecting in second trimester; 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 ([facility]); headache in second trimesterStart: 12-05-2024 End: 07-42-6763Qorflx OnlyChiquita Shen RNMaternal- Medicine at [facility] HospitalComment on above:Previous gastric bypass affecting , antepartum (Primary Dx); Hypothyroidism affecting in second trimester; 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 ([facility]); Obesity affecting in second trimester, unspecified obesity type; Encounter for supervision of resulting from assisted reproductive technology, antepartumStart: 12-04-2024 End: 23-78-9065fcbhoqedtaXSLPA FAZIONot AvailableStart: 12-02-2024 End: 36-18-4591Mzxwpgb encounter procedureRichard A Visci DO-[address] [employer] - O/P Start: 12-02-2024 End: 74-75-9101wrfknikxlbLaimflui Rohrbacher APRN Work Phone: [facility] Work Phone: Start: 12-02-2024 End: 64-13-8488Wuvqeujy Result EncounterRichard A Visci DO Work Phone: noms External Department UnsolicitedStart: 12-02-2024 End: 95-83-0394Xegpruyr Result EncounterRichard A Visci DO Work Phone: NOZG External Department UnsolicitedStart: 12-01-2024 Non-patient / Non-visit([place]) Elizabeth MCDERMOTT-[facility] Work Phone: Start: 11-30-2024 End: 84-58-3041qjejeeszpiIzomshnq Rohrbacher RESEARCH METHODOLOGIST Work Phone: [facility] Work Phone: Start: 11-30-2024 End: 30-39-9649Rzhmgpzj ReferredChris Chapman DO-LAB Path [facility] Start: 44-24-0248Run-patient / Non-visitChris Chapman DO-[facility] Work Phone: Start: 11-20-2024 End: 88-14-2526Jyumnv flowsheetCorey Juan DO Work Phone: noms [facility] OBGYNStart: 11-20-2024 End: 16-92-9602Hlcnmq flowsheetCorey Juan DO Work Phone: noms [facility] OBGYNStart: 11-20-2024 End: 38-81-7099Smoparkdm Result EncounterCorey Juan DO Work Phone: noms External Department UnsolicitedStart: 11-20-2024 End: 40-96-3451Dhlsbnjt Result EncounterCorey Juan DO Work Phone: noms External Department UnsolicitedStart: 11-20-2024 Non-patient / Non-visitCorey Juan-[facility] Work Phone: Start: 11-20-2024 End: 03-53-0488Mchtddm encounter procedureCorey Juan DO Work Phone: noms HealthcareStart: 11-20-2024 End: 72-69-6549Pvapfuev preventive med est patient 18-39 yrsCorey Juan DO Work Phone: noms [facility] OBGYNComment on above:Well woman exam with routine gynecological exam; Exposure to STD; Second trimester ([facility]); 18 weeks gestation of ([facility]); Need for maternal serum alpha-protein (MSAFP) screening ([facility]); Screening, , for anatomic survey ([facility]); Thyroid diseaseStart: 11-20-2024 End: 90-94-8410ktqaftxujoLYXEB FAZIONot AvailableStart: 91-76-7001Mvo-patient / Non-visitArtemiofito Jayla Chapman DO-[facility] Work Phone: Start: 10-26-2024 End: 44-87-4530Vvwsjg OnlyNot In System Ref ProvMaternal- Medicine at [facility]tart: 10-22-2024 End: 86-68-9515Abyjjv outpatient visit 15 minutesCorey Juan DO Work Phone: noms BCP OBComment on above:13 weeks gestation of ([facility]); Second trimester ([facility]); Thyroid disease ; H/O gastric sleeve; H/O iron deficiency anemia; resulting from in vitro fertilization in first trimester ([facility]) Start: 10-22-2024 End: 53-25-2252svwwqmktcnRCDPU FAZIONot AvailableStart: 10-18-2024 End: 85-77-2339Tqvspamek department patient visitAmanda Ford RESEARCH METHODOLOGIST Work Phone: [phone]-Fuphcjwkk Room Work Phone: Start: 10-10-2024 End: 06-70-9124Vycpfpumy Result EncounterCorey Juan DO Work Phone: noms External Department UnsolicitedStart: 10-10-2024 End: 92-79-8507Yrwqxtmbe Result EncounterCorey Juan DO Work Phone: noms External Department UnsolicitedStart: 09-26-2024 End: 52-21-5702nwdzwmjpfrErbqspje MerylrbacherFacility:[facility] HospitalStart: 09-20-2024 End: 49-45-1970Rwvqgj outpatient visit 5 minutesNoms Bcp Ob Juan NurseNOMS BCP OBComment on above:GA: 8g1hRyvem: 09-20-2024 End: 25-84-0033lphdicueuoWYYFN SABBAGHNot AvailableStart: 09-03-2024 End: 22-12-0424Fcawhhw evaluation of patient and reportUs Tech 1 [facility] Rej Work Phone: Reproductive Endocrinology InfertilityComment on above:Early stage of ([facility])Start: 09-03-2024 End: 99-91-6173msgehsmbttTLHVXSO G MICKEYFacility:[facility] Start: 08-28-2024 End: 48-32-0674Qknrtpd evaluation of patient and reportUs Tech 2 [facility] Beac Work Phone: Reproductive Endocrinology InfertilityComment on above: resulting from assisted reproductive technology in first trimester ([facility])Start: 08-28-2024 End: 79-75-9576ekjwuiozfwVOTQETT G MICKEYFacility:[facility] Start: 08-24-2024 End: 15-96-2072Qpnsoximb encounterLiliana G David RESEARCH METHODOLOGIST.ASSOCIATE PROFESSOR OF THEATRE Work Phone: Reproductive Endocrinology InfertilityComment on above:Patient QuestionStart: 08-23-2024 End: 94-79-0592Ucwhevcyr encounterLiliana G David RESEARCH METHODOLOGIST.ASSOCIATE PROFESSOR OF THEATRE Work Phone: Reproductive Endocrinology InfertilityComment on above:PainStart: 08-22-2024 End: 79-84-8506Ntfnjyforrest Sinclair MD Work Phone: noms ENDOCRINOLOGYStart: 08-22-2024 End: 97-11-4087Jszamyforrest Sinclair MD Work Phone: noms ENDOCRINOLOGYStart: 08-22-2024 End: 30-56-5101Cnomil outpatient visit 25 minutesDarleen Sinclair MD Work Phone: NOMS SH ENDOCRINOLOGYComment on above:Abnormal thyroid function test (Primary Dx); H/O gastric bypass; 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CMS/HCC); Vitamin D deficiencyStart: 08-22-2024 End: 79-54-6343dpagyhwtslGQFBHSp Andrade AvailableStart: 08-20-2024 End: 54-27-2841Ttjrkbxwfdgz consultation with [place] Hernandez APRN.ASSOCIATE PROFESSOR OF THEATRE Work Phone: Reproductive Endocrinology InfertilityStart: 08-20-2024 End: 28-77-1728blwzojoapkQnlnfpc G Mickey RESEARCH METHODOLOGIST.ASSOCIATE PROFESSOR OF THEATRE Work Phone: Reproductive Endocrinology InfertilityComment on above: 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) (Primary Dx)Start: 08-18-2024 End: 78-70-5918cjoxvkopsgCfqrtib G Mickey RESEARCH METHODOLOGIST.ASSOCIATE PROFESSOR OF THEATRE Work Phone: Reproductive Endocrinology InfertilityComment on above:UltrasoundStart: 08-17-2024 End: 47-73-6074mwcrcjishlIthdutxr RohrbacherFacility:[facility] HospitalStart: 08-16-2024 End: 40-86-8110Qrzpjovzw encounterLilimino Hernandez RESEARCH METHODOLOGIST.ASSOCIATE PROFESSOR OF THEATRE Work Phone: Reproductive Endocrinology InfertilityComment on above:positive for pregnancyStart: 08-15-2024 End: 77-47-5091Yenivgffo encounterLilimino Hernandez RESEARCH METHODOLOGIST.ASSOCIATE PROFESSOR OF THEATRE Work Phone: Reproductive Endocrinology InfertilityComment on above:Patient QuestionStart: 08-15-2024 End: 05-73-2755qauxzzagrlCxmcwgy G MickeyFacility:[facility] HospitalStart: 08-13-2024 End: 27-59-0014jvyibyalrwYwlabhs G MickeyFacility:[facility] HospitalStart: 07-31-2024 End: 42-01-7787zwhyzddttdPOSVYkbovvnk:[facility] HospitalStart: 07-31-2024 End: 69-86-5054Jnooxhw encounter procedureAndrology Chore Worker Work Phone: [facility] Andrology LaboratoryComment on above: Procreative management (Primary Dx)Start: 07-30-2024 End: 60-51-2318Mlquagsaj encounterMelodie Hernandez RESEARCH METHODOLOGIST.ASSOCIATE PROFESSOR OF THEATRE Work Phone: Reproductive Endocrinology InfertilityComment on above:Patient QuestionStart: 07-25-2024 End: 69-76-5091flgbtsfibdQBHYIcpiybih:[facility] HospitalStart: 07-07-2024 End: 38-56-4609uujbncaoaeNIOKPJXU TANTIBHEDHYANGKULFacility:[facility] Hospitaltart: 07-07-2024 End: 60-27-1005Wiswpqf encounter procedureAndrology Chore Worker Work Phone: [facility] Andrology LaboratoryComment on above: Procreative management (Primary Dx)Encounter for artificial insemination (Primary Dx)Start: 07-06-2024 End: 32-40-7740Iyfvzdtng encounterMelodie Hernandez RESEARCH METHODOLOGIST.ASSOCIATE PROFESSOR OF THEATRE Work Phone: Reproductive Endocrinology InfertilityComment on above:Patient calling back/re iui 07/07 unsureStart: 07-05-2024 End: 61-36-9762Lrcsbgnkn encounterIgnacio Guy MD Work Phone: reproductive Endocrinology InfertilityComment on above:re iui this wknd/has cervical polyp questionStart: 07-04-2024 End: 90-40-2630Ghcagmgnu encounterMelodie Hernandez RESEARCH METHODOLOGIST.ASSOCIATE PROFESSOR OF THEATRE Work Phone: Reproductive Endocrinology InfertilityComment on above:Treatment PlanningStart: 07-04-2024 End: 00-43-9146ntiusyiulrFxjkxqs G Mickey RESEARCH METHODOLOGIST.ASSOCIATE PROFESSOR OF THEATRE Work Phone: Reproductive Endocrinology InfertilityComment on above:OvulatingStart: 07-04-2024 End: 80-54-4500Uqkwpwj encounter procedureUs Tech 3 [facility] Beac Work Phone: Reproductive Endocrinology InfertilityStart: 07-02-2024 End: 48-88-0964jhsjhyeqpbWTRLMIS MICKEYFacility:[facility] HospitalStart: 06-29-2024 End: 35-72-4921xddufgxvsvBYSBUKR MICKEYFacility:[facility] HospitalStart: 06-23-2024 End: 08-31-1213abytcnvcmdEwyihxj G David RESEARCH METHODOLOGIST.ASSOCIATE PROFESSOR OF THEATRE Work Phone: Reproductive Endocrinology InfertilityComment on above:Negative test and possible hematomaStart: 06-09-2024 End: 38-73-8671jtgbsgwmcmHAWRNL ATTARANFacility:[facility] HospitalStart: 06-09-2024 End: 04-45-5779Jnvuziq encounter procedureAndrology Chore Worker Work Phone: [facility] Andrology LaboratoryComment on above: Procreative management (Primary Dx)Female infertility (Primary Dx)Start: 06-05-2024 End: 81-87-3611rhvklxnpeiBwlguxm G David RESEARCH METHODOLOGIST.ASSOCIATE PROFESSOR OF THEATRE Work Phone: Reproductive Endocrinology InfertilityStart: 06-05-2024 End: 11-10-4772Touoljo encounter procedureLiliana G David RESEARCH METHODOLOGIST.ASSOCIATE PROFESSOR OF THEATRE Work Phone: Reproductive Endocrinology InfertilityComment on above:IUI appointmentStart: 05-22-2024 End: 74-14-4814sderasayrqCyqnmou G David RESEARCH METHODOLOGIST.ASSOCIATE PROFESSOR OF THEATRE Work Phone: Reproductive Endocrinology InfertilityComment on above:Progesterone resultsStart: 05-21-2024 End: 58-13-1956jyckevgbqhKpsqips G MickeyFacility:[facility]Start: 05-18-2024 End: 14-87-5622viawsuxnssTEKPJPT MICKEYFacility:[facility] HospitalStart: 05-09-2024 End: 51-98-7701pcjpdjrgbmCcwvlmz G David RESEARCH METHODOLOGIST.ASSOCIATE PROFESSOR OF THEATRE Work Phone: Reproductive Endocrinology InfertilityComment on above:Reproductive mgmt, 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)Start: 05-09-2024 End: 76-44-2344Qsmgwqqwbaab consultation with [place] Hernandez APRN.CNP Work Phone: Reproductive Endocrinology InfertilityStart: 05-06-2024 End: 09-82-2866rbnxejcwdhBdyepvsBridget Hernandez APRN.ASSOCIATE PROFESSOR OF THEATRE Work Phone: Reproductive Endocrinology InfertilityComment on above:Consent formStart: 05-02-2024 End: 35-34-8364Syazrdxfcloo consultation with Rufino Enriquez PhD Work Phone: [facility] CenterComment on above:Bipolar 1 disorder (Multi) (Primary Dx); Infertility counselingStart: 05-02-2024 End: 17-68-9681mxmrperdaeMZZATY [facility] AmbulatoryStart: 04-26-2024 End: 83-41-2134umosaichclUfprdwzexACMC Healthcare System Work Phone: Start: 04-26-2024 End: 56-49-5091Rsdybnb encounter procedureCount Includes [facility] Physician [facility] Work Phone: Start: 04-24-2024 End: 61-52-3381qdqabssoslXDYOFNH MICKEYFacility:[facility] Hospitaltart: 04-23-2024 End: 32-78-4875cyspzkgsjhWwpytuqeoACMC Healthcare System Work Phone: Start: 04-23-2024 End: 54-93-5393Situwee encounter procedureCount Includes [facility] Physician [facility][Note 3] Orthopedics Work Phone: Start: 04-02-2024 End: 26-31-7350swaigoyxalSenleovBridget Hernandez APRN.ASSOCIATE PROFESSOR OF THEATRE Work Phone: Reproductive Endocrinology InfertilityComment on above:Genetic testingStart: 03-09-2024 End: 19-53-2864tquhjrdnxhJqhtyapSue Hernandez APRN.ASSOCIATE PROFESSOR OF THEATRE Work Phone: Reproductive Endocrinology InfertilityComment on above:Reproductive mgmt, 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 Hospitaltart: 02-28-2024 End: 83-35-5861opebebfrcyCRQLVO ATTARANFacility: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)Start: 02-27-2024 End: 09-22-1289xpdcreqeiyYbodswlw Rohrbacher APRN Work Phone: [facility] Work Phone: Start: 02-27-2024 End: 85-18-5693Gzxrpff encounter procedureAmanda Ford APRN Work Phone: Count Includes [facility] Physician Group-[facility]oped[facility] Work Phone: Start: 67-48-6594Dcn-patient / Non-visitCount Includes [facility] Work Phone: Start: 02-20-2024 End: 02-37-0266Ivdooqw encounter procedureCorey Juan DO Work Phone: noMS HealthcareStart: 02-20-2024 End: 09-83-5489Fpgkibjj preventive med est patient 18-39 yrsCorey Juan DO Work Phone: noms BCP OBComment on above:Well woman exam with routine gynecological examStart: 02-20-2024 End: 59-59-0652Dcdwxz flowsheetCorey Juan DO Work Phone: noms BCP OBStart: 02-20-2024 End: 16-85-2981Axxjiz flowsheetCorey Juan DO Work Phone: NOMS BCP OBStart: 02-20-2024 End: 61-58-6732Hdraxpdii Result EncounterCorey Juan DO Work Phone: NOMS External Department UnsolicitedStart: 01-17-2024 End: 37-00-2213awhtlrkznjAXLF Jennifer Rohrbacher Work Phone: [facility] Work Phone: Start: 01-17-2024 End: 95-16-6944Fzqppwb encounter procedureMELY Ford Work Phone: Count Includes [facility] Work Phone: Start: 37-65-8620Aas-patient / Non-visitAPRTanja Ford Work Phone: Count Includes [facility] Work Phone: Start: 12-20-2023 End: 43-02-2084htkelbgkvtIFDW Jennifer Rohrbacher Work Phone: [facility] Work Phone: Start: 12-20-2023 End: 44-27-1701Ojjegio encounter procedureMELY Ford Work Phone: Count Includes [facility] Work Phone: Start: 40-28-0513veyrrmjdxsDaswn Bailey [facility]: 72-93-2576Pyr-patient / Non-visitAPRTanja Ford Work Phone: Count Includes [facility] Work Phone: Start: 12-07-2023 End: 27-90-1902Mgnjmfkhh to same day surgery centerMELY Ford Work Phone: [facility] HospitalStart: 12-07-2023 End: 56-96-8341gmafirehwvQWLMShima Ford Work Phone: [facility] Work Phone: Start: 12-01-2023 End: 13-64-5845vnmhczzevbMSPG Jennifer Rohrbacher Work Phone: [facility] Work Phone: Start: 12-01-2023 End: 33-78-9430Ukmadaq encounter procedureMELY Ford Work Phone: Count Includes [facility] [facility] Work Phone: Start: 11-28-2023 End: 86-11-0645jtogzorvhdHDFVShima Ford Work Phone: [facility] Work Phone: Start: 11-28-2023 End: 51-82-3397Dwllnhi encounter procedureMELY Ford Work Phone: [facility]-Pre-Surgical Testing Work Phone: Start: 11-02-2023 End: 23-86-6579Pnzuzpsfz department patient visitAmanda Ford [facility] End: 96-32-9306bxeciiapnsXDZGShima Ford Work Phone: [facility] Work Phone: Start: 11-01-2023 End: 42-47-2413Twcnupp encounter procedureMELY Ford Work Phone: Count Includes [facility] Work Phone: Start: 10-26-2023 End: 74-64-1768plocacnpgwNADO Jennifer Rohrbachenikkie Work Phone: [facility] Work Phone: Start: 10-26-2023 End: 25-24-7061Bqsrkba encounter procedureAPRTanja Patel Rosarioacher Work Phone: [facility]-EMG Work Phone: Start: 10-13-2023 End: 80-01-7815yvyjdeopiwJjsonhvfo [facility] Work Phone: Start: 10-13-2023 End: 83-41-7925Qztazjr encounter procedureChristoph [facility] Work Phone: Start: 56-51-5556Tlq-patient / Non-visitChad [facility]-[place] [employer] Work Phone: Start: 06-08-2023 End: 08-66-3297vmmldchnwyWjabcboeaDayton Osteopathic Hospital Work Phone: Start: 06-08-2023 End: 04-84-9790Yviexxz encounter procedureChad [facility] Work Phone: Start: 05-17-2023 End: 27-55-3301qjsjweneibUwbbglte Merylrbacher Other [employer] Other Start: 31-23-2377Onvbna outpatient visit 15 minutes Romeo B[facility]zi OrthopedicsStart: 91-77-9345Exxotjwsj encounterJennifer RohrbacherFPG [facility] ClinicStart: 05-17-2023 End: 73-78-5025Rntdhax encounter procedureChad Physician Group-Start: 04-28-2023 End: 99-90-1178mhpskalvahXlmgmzgo Rohrbacher Other [employer] Other Start: 57-17-4809Yhcmhbdpx encounterJennifer RohrbacherFPG [facility] ClinicStart: 04-22-2023 End: 89-87-2082anpvndnqfyTnqqmcpl Rohrbacher Other [employer] Other Start: 80-96-5552Ifbuzwsup encounterJennifer RohrbacherFPG [facility]Start: 04-19-2023 End: 98-56-6442sxjowhxeytPdgiudzc Rohrbacher Other [employer] Other Start: 33-78-3871Fziaaznsi encounterJennifer RohrbacherFPG [facility] RoadStart: 04-14-2023 End: 90-97-2713sbmbvsnffhAgsxdysa Rohrbacher Other [employer] Other Start: 76-79-4809Qkmytoujy encounterJeaicha RohrbacherFPG [facility] ClinicStart: 03-17-2023 End: 93-09-5295gateawdhkcIwqip Bailey Other [employer] Other Start: 94-73-2385Umbuzatib encounterRomeo Bazzi OrthopedicsStart: 02-07-2023 End: 28-23-3850tkjjnvaewdVrrpcviq Rohrbacher Other [employer] Other Start: 02-39-6906Nhmltc outpatient visit 15 minutes Petr Viviana [facility]ism[facility]ckuskyStart: 17-17-5887Lbkjxgkye encounter Amanda ShethrbacherFPG [facility] ClinicStart: 01-27-2023 End: 10-87-5923yepdhumyuxVwauzbjm Rohrbacher Other [employer] Other Start: 72-63-4685Ahcoevxik encounterJennifer RohrbacherFPG [facility] [place]Start: 01-19-2023 End: 03-91-1068onbstdonftTdllnbew Rohrbacher Other [employer] Other Start: 04-53-4286Nupludkqa encounterJennifer RohrbacherFPG [facility] ClinicStart: 01-13-2023 End: 09-95-4688ymfaifkoxcEbyxsipg Rohrbacher Other [employer] Other Start: 04-82-2564Iaezkyxyf encounterJennifer RohrbacherFPG [facility] ClinicStart: 01-10-2023 End: 01-24-3517svilbhsgqfKanwufri Rohrbacher Other [employer] Other Start: 55-55-0798Owrlnlwtg encounterJennifer RohrbacherFPG [facility] ClinicStart: 01-06-2023 End: 14-00-6636xwdtadsgjqWrtqssfj Rohrbacher Other [employer] Other Start: 94-75-3556Iwllbdpva encounterJennifer RohrbacherFPG [facility] ClinicStart: 12-27-2022 End: 77-77-5376wrjsvvwjwdYpmkqgc Alireza Other [employer] Other Start: 41-66-4541Coobih outpatient visit 15 minutes Petr [facility]atch [facility] [place]kyStart: 11-10-2022 End: 40-28-9011zkksyhniltVsmkaspf Rohrbacher Other [employer] Other Start: 38-36-4932Ghixtdzif encounterJennifer RohrbacherFPG [facility] [place]kyStart: 10-21-2022 End: 67-58-6447ptpafsyionOaisnnmk Rohrbacher Other [employer] Other Start: 91-14-8693Ygglvgcnh encounterJennifer Jonh Family [facility] CenterStart: 10-11-2022 End: 56-62-0277ahtbmwhxsyKhckmuo Widmer Other [employer] Other Start: 12-13-6320Hksdmo consultation new/estab patient 40 minMatthew BimerFPG [facility] [place]kyStart: 09-30-2022 End: 62-02-8585ixontoxpzrUvhtkoii Rohrbacher Other [employer] Other Start: 22-38-3652Lecqku outpatient visit 15 minutes Amanda RosarioangelDanika Family [facility] CenterStart: 08-25-2022 End: 07-44-8621rvsekjupbfJuczntuc Rohrbacher Other [employer] Other Start: 29-49-3729Oikxbx outpatient visit 15 minutes Amanda ShethsarahangelDanika Family [facility] CentertonStart: 08-20-2022 End: 69-26-2245nuwpgojirfLppcbbri Rohrbacher Other [employer] Other Start: 19-18-3173Fvrsyp outpatient visit 15 minutes Amanda RosarioangelDanika Family [facility] CentertonStart: 07-19-2022 End: 09-30-1908qxyrbiswxmBprvxsiu Rohrbacher Other [employer] Other Start: 18-74-1628Bvqorqszw encounterJennifer MerylrbacherF Family [facility] CentertonStart: 07-08-2022 End: 11-15-7606lfhkfhttebRyeakiiz Rohrbacher Other [employer] Other Start: 39-34-4612Ypxttftqw encounterAmanda LopezHoboken University Medical CenterStart: 06-23-2022 End: 99-93-8949batpyyxznqLRIY Jennifer Rohrbacher Work Phone: [facility] Work Phone: Start: 06-23-2022 End: 05-69-5719Mbeuxwe encounter procedureAPRTanja Ford Work Phone: [facility]-Lab [place] Work Phone: Start: 06-17-2022 End: 93-58-9160ckahjcaukvJaavkjrv Rohrbacher Other [employer] Other Start: 11-79-7863Lsvadhibq encounterAmanda FordNolee's summit hospital Boutique Windowrt: 06-16-2022 End: 92-74-4531mqpwmiioeySKUU Jennifer Rohrbacher Work Phone: [facility] Work Phone: Start: 06-16-2022 End: 66-84-4118Yiokwzu encounter procedureAPRTanja Amandahina Ford Work Phone: [facility]-Lab [place] Work Phone: Start: 06-10-2022 End: 84-76-2165Aiqxpsoklb and management of inpatientMD Mariam Appiah Work Phone: [facility]-4 [place] [facility] Work Phone: Start: 15-80-1377xrxfdwjdhnt encounterMD Mariam Appiah Work Phone: [facility] Work Phone: Start: 06-09-2022 End: 97-38-9313xqcyttpsphXQ Mariam Appiah Work Phone: [facility] Work Phone: Start: 06-09-2022 End: 27-30-2702Nhufvta encounter procedureMD Mariam Appiah Work Phone: [facility]-Lab [place] Work Phone: Start: 04-26-2022 End: 27-40-0590ptjdfxoxujUymqhlzs Rohrbacher Other [employer] Other Start: 68-21-4185Wapjgtyal encounterArtemionnifer RosarioachenikkieCertusNet Boutique Windowrt: 04-23-2022 End: 05-71-7660kzkvjjzifgYfmmgrvg Rohrbacher Other [employer] Other Start: 95-39-0429Yyhjjittr encounterJennifer MerylrbacheI-70 Community HospitalLeakyrt: 04-21-2022 End: 63-08-9158Pzlqpxdw ReferredMD Mariam Appiah Work Phone: [facility]-Lab [place] Work Phone: Start: 04-21-2022 End: 59-37-6261rzkpcuyacyQI Mariam Appiah Work Phone: [facility] Work Phone: Start: 07-26-8027Otycqa outpatient visit 15 minutes Amanda LopezHoboken University Medical CenterStart: 04-20-2022 End: 83-45-3133lnqpfxdmceVblpzyzi Rohrbacher Other [employer] Other Start: 46-73-7263Hbtbfzlpg encounterAmanda ShethrbacherFHoboken University Medical CenterStart: 04-13-2022 End: 84-18-5432cbhryfqzhxMzpyetrc Rohrbacher Other [employer] Other Start: 25-43-9757Ixeypcqvg encounterJennifer MerylrbacherNolee's summit hospital Boutique Windowrt: 04-10-2022 End: 44-16-3771Eofwojavn department patient visitMD Mariam Appiah Work Phone: [facility]-Emergency Room Work Phone: Start: 04-08-2022 End: 09-90-9922Irphgvoie department patient visitMD Mariam Appiah Work Phone: [facility]-Emergency Room Work Phone: Start: 03-30-2022 End: 16-65-0005clmrblogkzCyzdaicw Rohrbacher Other [employer] Other Start: 58-72-1732Tdnxhlufa encounterJennifer MerylrbacherFAlvarado Hospital Medical Center ClintonStart: 03-23-2022 End: 60-12-6597Kmtchau encounter procedureMD Mariam Appiah Work Phone: [facility] ClintonStart: 03-23-2022 End: 22-93-1038zlsjtrskffYvbvzmar Rohrbacher Other [employer] Other Start: 79-94-9809Dwinyl outpatient visit 15 minutes Amanda Lopez Family [facility] ClintonStart: 03-17-2022 End: 18-69-3981dvqajcdebrElmtuaee Rohrbacher Other [employer] Other Start: 83-87-8098Rrembypto encounterJennifer MerylrbacherFPG Family [facility] CentertonStart: 02-08-2022 End: 17-15-6007flaaezbvldZnfawjje Rohrbacher Other [employer] Other Start: 62-98-3815Wmkril outpatient visit 25 minutes Amanda LopezHoboken University Medical CenterStart: 09-01-2021 End: 23-03-5113Iztfwon encounter [facility] Start: 08-25-2021 End: 53-19-0775Jwojagz encounter [facility] Start: 08-06-2021 End: 25-60-1201Xilxvrn encounter Afshan [facility] Start: 07-24-2021 End: 71-25-6534Hplssuq encounter Afsh[facility] Start: 07-23-2021 End: 36-55-2884wbjrydyksuXfjnmpaa Rohrbacher Other [employer] Other Start: 24-58-3515Zgqsdlhcu encounterAmanda FordTopeka [employer] CoStart: 07-16-2021 End: 60-25-6703cikfodlgbtNkuhdcjq Merylrbacher Other [employer] Other Start: 74-79-0135Xrrnto outpatient new 30 minutes Amanda LopezHoboken University Medical CenterStart: 03-30-2021 End: 21-95-8409Obotuyqsg department patient visitMARIAM APPIAHSouthern Ohio Medical Centertart: 05-06-2020 End: 59-09-7430xupkdvhxozVXOHHZW R JOHNSSycamore Medical Center Start: 05-06-2020 End: 16-62-8575Oudkwdtxuf hospital visit by Magui Olivera Work Phone: stvz 2C Ortho/Med SurgComment on above:Post-op pain (Primary Dx)Start: 05-02-2020 End: 26-68-3806Rnrawnp encounter procedureLU [facility] HospitalStart: 05-02-2020 End: 05-23-4029Xhxqrfayeb hospital visit by physicianStcdoroteo Covid Screening ScheduleSTCZ Covid ScreeningComment on above:Pre-op testing (Primary Dx)Start: 04-22-2020 End: 91-27-1283whpjdzcnwkLFLTXQFSt. Mary's Medical Center Start: 04-22-2020 End: 57-98-2417ghyhvruybxQURICEASt. Mary's Medical Center Start: 04-22-2020 End: 15-97-9837Clpylhbeeb hospital visit by physicianSfatoumata C-Arm [address] [place] [address] RadiologyComment on above:ArrivedStart: 04-22-2020 End: 83-92-2377Tfdipcgape hospital visit by physicianSraisa Pat 2STVZ Pre-Admit Testing Procedures DateProcedureProcedure DetailPerforming ClinicianStart: 91-01-9890QI OB BPP W NON-STRESSCorey Juan DO Work Phone: Start: 32-27-0825NBY THYROID STIM HORMONECorey Juan DO Work Phone: Start: 67-66-9833Nvcab dip stick/tablet rgnt non-auto w/o micrscpCorey Juan DO Work Phone: Start: 54-59-9904Arwbz dip stick/tablet rgnt non-auto w/o micrscpAmy Kwaku OGDEN Work Phone: Start: 23-06-3472Xbqfa dip stick/tablet rgnt non-auto w/o micrscpMima Duenas NP Work Phone: Start: 79-82-8022KVC THYROID STIM HORMONECorey Juan DO Work Phone: Start: 44-00-0123ADT CBC WITH AUTO DIFFAmy Kwaku OGDEN Work Phone: Start: 31-39-1380PBWUALU 1 HOURAmy Kwaku OGDEN Work Phone: Start: 79-23-3404Ipbix dip stick/tablet rgnt non-auto w/o micrscpAmy Kwaku OGDEN Work Phone: Start: 29-96-4881FFQ UA (CLEAN/CATCH) SOFTWARE QUALITY ANALYST/MICRO IF IND.Les Juan DO Work Phone: Start: 40-82-5816AOT URINE MICROSCOPIC ONLYCorey Juan DO Work Phone: Start: 75-95-2846Wpdii dip stick/tablet rgnt auto w/o microscopyRichard A Visci DO Work Phone: start: 51-38-4852NLQFFAVIF VAGINITIS (HTRX)Les Juan DO Work Phone: Start: 74-95-5081OZC THYROID STIM HORMONECorey Juan DO Work Phone: Start: 69-19-7874Pbtya dip stick/tablet rgnt non-auto w/o micrscpCorey Juan DO Work Phone: Start: 92-49-4478Ozzcw dip stick/tablet rgnt non-auto w/o micrscpCorey Juan DO Work Phone: Start: 27-46-7430WPQBVMSV LAB TESTNot In System Ref ProvStart: 95-75-8858Pkvphiac identification testAmanda Ford RESEARCH METHODOLOGIST Work Phone: Start: 41-54-7022Glpeppndpxwio of growth of fungi Amanda Ford RESEARCH METHODOLOGIST Work Phone: Start: 03-63-0930Aefcrbvdnys vaginalis detection Amanda Ford RESEARCH METHODOLOGIST Work Phone: Start: 78-68-5699Brkpg cultureJennifer Logan RESEARCH METHODOLOGIST Work Phone: Start: 50-46-1077Niadoeuwud ultrasound of gravid uterusArtemionnedmundo Ford RESEARCH METHODOLOGIST Work Phone: Start: 04-91-7382RIRXOZFB LAB TESTNot In System Ref ProvStart: 87-73-2574QMY TESTCorey Juan DO Work Phone: Start: 30-47-6100Cygvhxtg rubellaNot In System Ref ProvStart: 00-76-8627Czfnwvog Zak Lindquist MD Work Phone: Start: 31-98-6519Vprghhfdbg glycosylated t9vUpvhzhbc Provider ExternalStart: 20-85-9768DPM 1&2 AB/AG SCREEN (P24 AG)Not In System Ref ProvStart: 81-24-5105Xjqo ia hepatitis b surface antigenNot In System Ref Prov Start: 76-26-0711HLOJNBHC TOTAL(UNKNOWN SYPHILIS STATUS)Not In System Ref Prov Start: 53-43-2181OFGE AND SCREENNot In System Ref ProvStart: 09-21-2024 ULTRASOUND OFFICENot In System Ref ProvStart: 62-78-4340Gxoka dip stick/tablet rgnt non-auto w/o micrscpCorey Juan DO Work Phone: Start: 85-29-8125Lb preg uterus after 1st trimest / gestationLiliana G David RESEARCH METHODOLOGIST.ASSOCIATE PROFESSOR OF THEATRE Work Phone: Start: 75-55-0412Mf preg uterus after 1st trimest / gestationLiliana G David RESEARCH METHODOLOGIST.ASSOCIATE PROFESSOR OF THEATRE Work Phone: Start: 41-90-6993Tn pelvic nonobstetric real-time image Nydia Guy MD Work Phone: start: 25-57-1124Ittdjble screenLILIANA MICKEYComment on above:Order Comment: Specimen Type: BLOOD SPECIMEN Ordering Facility: Address: [address] [place], [place] [id number] By: #### TSPN #### [facility] [id number] [address] [place] [address] [place] OF AMERICAStart: 28-07-3148TGO,APTIMA HPV,AGE GDLN Les Monsivaiso DO Work Phone: Start: 78-43-2996Sstaoouyhlk observation [Identifier] in Cervix by Rose Enriquez PhD Work Phone: Start: 53-28-5555GH Shoulder Scope RCR/Biceps Tendon (Right)RESEARCH METHODOLOGIST Amanda Logan Work Phone: Start: 43-00-2996Wxomqidu tomography of abdomen and pelvis with contrastMD Mariam Appiah Work Phone: Start: 53-76-7558Qwymyemyk for occult blood in fecesMD Mariam Appiah Work Phone: Start: 28-55-7768Tjwfx cultureMD Mariam Appiah Work Phone: Start: 16-46-2124Gxrqb cultureMD Mariam Appiah Work Phone: Start: 60-63-7627Ektug X-ray of right shoulderMD Mariam Appiah Work Phone: Start: 23-66-0185Lsigi metabolic panel calcium total Rei Montez Work Phone: Start: 68-41-2521Oityb count complete auto&auto difrntl wbcMichael A Montez Work Phone: Start: 65-94-9918Ertjp esophagusGregdriss R Olivera Work Phone: Start: 85-51-3362Geqwi metabolic panel calcium total Rashard R Olivera Work Phone: Start: 54-68-8989Cgoao count complete automatedGregdriss R Olivera Work Phone: Start: 13-11-3386Stekg metabolic panel calcium total Rashard R Olivera Work Phone: Start: 64-63-9274Eyeky count complete automatedRashard Olivera Work Phone: Start: 05-06-2020 End: 70-24-7107EUDZYJZMUAE SLEEVE LAPAROSCOPIC ROBOTICRashard Olivera Work Phone: Start: 24-65-8081Uembk test visual color cmprsn methsGlisa Olivera Work Phone: Start: 08-93-1578Irwbe iv surg pathology gross&microscopic examRashard Olivera Work Phone: Start: 30-85-2653Foksxqyrbe exam chest 2 viewsRashard Olivera Work Phone: Start: 57-58-0611Pgzxu of nicotineRashard Olivera Work Phone: Start: 66-81-1234Jguwd metabolic panel calcium total Rashard Olivera Work Phone: Start: 26-21-5275Fxfaa count complete Idania Olivera Work Phone: Start: 54-54-2821Sszofofpqwg timeRashard Olivera Work Phone: Start: 54-03-5178Csnxecihslguip time partial plasma/whole bloodRashard Olivera Work Phone: Start: 26-53-1658Atw routine ecg w/least 12 lds i&r onlyRashard Olivera Work Phone: Start: 04-70-9512ZIG REPORTHpf ScanningCholecystectomy Samir Thompson Comment on above:2016 Plan of Treatment DateCare ActivityDetailAuthorStart: 86-66-4190QSL Vaccine (1 - 1-dose 75+ series)RSV Vaccine (1 - 1-dose 75+ series)[facility] 2045 Zoster Vaccines (1 of 2)Zoster Vaccines (1 of 2)[facility]Start: 81-51-2758VFeS,Tdap and Td Vaccines (2 - Td or Tdap)DTaP,Tdap and Td Vaccines (2 - Td or Tdap)[facility] SystemStart: 12-25-2032 DTaP/Tdap/Td Vaccines (2 - Td or Tdap)DTaP/Tdap/Td Vaccines (2 - Td or Tdap) [facility] CampusStart: 87-68-1442Ixdva microalbumin profile DTaP,Tdap,Td Vaccine (2 - Td or Tdap)[facility]: 84-80-2684Ylbzqrckr for malignant neoplasm of cervixUnCherrington Hospital: 10-91-7404Dopry BMI ScreeningAdult BMI ScreeningProAshtabula General Hospital SystemStart: 92-00-0559Apwacrt ScreeningTobacco ScreeningProDayton Osteopathic Hospitaltart: 12-05-2025 End: 01-74-7061OR MFM with or without consultUS MFM with or without consult Imaging Routine Previous gastric bypass affecting , antepartum Hypothyroidism affecting in second trimester 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 ([facility]) Obesity affecting in second trimester, unspecified obesity type Encounter for supervision of resulting from assisted reproductive technology, antepartum Expected: 12/05/2025 (Approximate), Expires: 12/05/2025[facility] Work Phone: comment on above:Expected: 12/05/2025 (Approximate), Expires: 12/05/2025Start: 08-21-2025 End: 79-77-7945Jvuffgw encounter procedureNOEPHRAIM MCDOWELL FORT LOGAN HOSPITALStart: 03-06-2025 End: 42-78-2478Huftcqq encounter qfnmgevrm12/19/2025 10:30 AM EST Routine GUDELIA HERNANDEZ [address] [place] [address] Jojo Ames PA [address] [place], [place] [id number] GUDELIA SHERMANGYNStart: 03-05-2025 End: 82-47-4092Toarsuy encounter vhmdiminr16/18/2025 11:15 AM EST Appointment [facility] - Ultrasound [address] [place] [address] [phone] [facility] - UltrasoundStart: 02-20-2025 End: 70-18-3688Pvoslur encounter procedureNOMS BCP OBStart: 02-19-2025 End: 81-06-3658NT biophysical profile w non stress testUS biophysical profile w non stress test Imaging Routine TSH (thyroid-stimulating hormone deficiency) Expected: 02/19/2025 (Approximate), Expires: 08/19/2025[facility] Work Phone: comment on above:Expected: 02/19/2025 (Approximate), Expires: 08/19/2025Start: 02-19-2025 End: 74-43-8824Spixlhg encounter iwuglmznt48/04/2025 1:00 PM EST Routine NOMMarixa [place] [facility]BG[facility] [address] [place], [id number] Les Martinez DO [address] [place], [place] [id number] NOMS Ricco OBGYNStart: 02-07-2025 End: 97-44-2897EH MFM with or without consultUS MFM with or without consult Imaging Routine Hypothyroidism affecting in second trimester headache in second trimester Previous gastric bypass affecting , antepartum 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 ([facility]) Expected: 02/07/2025, Expires: 02/07/2026[facility] Work Phone: comment on above:Expected: 02/07/2025, Expires: 02/07/2026Start: 02-07-2025 End: 95-43-3620Ohjpewq encounter yeqkxqslj33/23/2025 9:45 AM EDT Appointment [facility] [place] [address] [facility] [address] [place] [address] [phone] Medicine [place]Start: 02-06-2025 End: 74-85-9401Nxoszuy encounter procedureNOMS [place] OBGYNComment on above: ArrivedStart: 02-03-2025 End: 81-07-1132SZ MFM with or without consultUS MFM with or without consult Imaging Routine Previous gastric bypass affecting , antepartum Hypothyroidism affecting in second trimester 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 ([facility]) Obesity affecting in second trimester, unspecified obesity type Expected: 02/03/2025 (Approximate), Expires: 01/04/2026[facility] Work Phone: comment on above:Expected: 02/03/2025 (Approximate), Expires: 01/04/2026Start: 01-30-2025 End: 03-34-9729Gkytrjzhlvjd / ancillary services /15/2025 2:30 PM EDT Ancillary Procedure [facility] [address] [place] [address] [place] [id number] NOMS Ricco OBGYNStart: 01-16-2025 End: 59-23-3866NE for pregnancyUS OB follow up transabdominal approach Imaging Routine TSH (thyroid-stimulating hormone deficiency) Expected: 01/16/2025, Expires: 05/19/2025[facility] Work Phone: comment on above:Expected: 01/16/2025, Expires: 05/19/2025Start: 01-16-2025 End: 64-87-9036Lcxcxnv encounter procedureNOMS [place] OBGYNComment on above: ArrivedStart: 01-03-2025 End: 16-78-8121Boyjkdv encounter hsitfwawl91/18/2025 2:15 PM EDT Appointment [facility] [place] [address] [facility] [address] [place] [address] [phone] Medicine [place]Start: 12-19-2024 End: 54-54-7561QWA panel - Blood by Automated countCBC Lab Routine Diabetes mellitus screening Expected: 12/19/2024 (Approximate), Expires: 12/19/2025[facility] Work Phone: comment on above:Expected: 12/19/2024 (Approximate), Expires: 12/19/2025Start: 12-19-2024 End: 00-33-1466Aepreglfnfh of glucose 1 hour after glucose challenge for glucose tolerance testGlucose tolerance, 1 hour Lab Routine Diabetes mellitus screening Expected: 12/19/2024 (Approximate), Expires: 12/19/2025N[facility] HealthcareComment on above:Expected: 12/19/2024 (Approximate), Expires: 12/19/2025Start: 12-19-2024 End: 96-92-5485Tnfggaj encounter procedureNOMS [place] OBGYNComment on above: ArrivedStart: 80-69-7139FBQUZ-19 Vaccine ()COVID-19 Vaccine ()[facility] SystemStart: 32-76-8672Zjajcsbzf vaccination [facility]tart: 12-05-2024 End: 02-82-7644Rjmepnv encounter procedureDunlap [facility] Hospital US ImagingStart: 12-04-2024 End: 60-83-8230Dizleamwaiku / ancillary services kivryxoziw15/19/2025 8:30 AM EDT Ancillary Procedure GUDELIA [place] [facility] [address] [place] [address] [place] [address] TKRN Ricco OBGYNStart: 48-14-2512Sgxgdsld admission [facility] Andersontart: 50-29-5042UavavgqfzOur Lady of Mer[facility] Hospital - Andersontart: 63-40-2799Ypqwbpcm identified in Urine by CultureUrine Culture [facility] Andersontart: 11-30-2024 End: 77-35-0759Aiqpv cultureOur Lady of Mer[facility] Hospital - Andersontart: 11-20-2024 End: 53-05-8653Ewovo fetoprotein, maternalAlpha fetoprotein, maternal Lab Routine Need for maternal serum alpha-protein (MSAFP) screening ([facility]) Expected: 11/20/2024 (Approximate), Expires: 12/21/2024NOMT HealthcareComment on above:Expected: 11/20/2024 (Approximate), Expires: 12/21/2024Start: 11-20-2024 End: 66-52-0686GH for pregnancyUS OB 14+ weeks anatomy scan Imaging Routine Screening, , for anatomic survey ([facility]) Expected: 11/20/2024 (Approximate), Expires: 02/20/2025NOMS HealthcareComment on above:Expected: 11/20/2024 (Approximate), Expires: 02/20/2025Start: 11-20-2024 End: 07-62-1789Saspsrz encounter procedureNOMS BCP OBComment on above:Arrived Start: 10-22-2024 End: 17-04-8311Ugojkas encounter mvoriqkcz98/07/2025 11:20 AM EDT Routine [facility] BCP OB [address] [place] [address] Les Martinez, DO [address] [place] [address] NOMS BCP OBStart: 71-79-1341Yrbingzs identified in Urine by CultureUrine [facility] Start: 16-97-2656Jwwpaxy CultureGenital [facility] Start: 02-62-7497Vxaqr [facility] West Campustart: 10-18-2024 [facility] Andersontart: 09-20-2024 End: 88-26-2630MPG/RhABO/Rh Lab Routine Missed menses , unspecified gestational age Expected: 09/20/2024 (Approximate), Expires: 09/20/2025[facility] HealthcareComment on above:Expected: 09/20/2024 (Approximate), Expires: 09/20/2025Start: 09-20-2024 End: 71-41-7648Lprwy type and Indirect antibody screen panel - BloodType and screen Lab Routine Missed menses , unspecified gestational age Expected: 09/20/2024 (Approximate), Expires: 09/20/2025[facility] Work Phone: comment on above:Expected: 09/20/2024 (Approximate), Expires: 09/20/2025Start: 09-20-2024 End: 97-29-2605Bozpo of abuse panel - Urine by Screen methodRapid drug screen, urine Lab Routine , unspecified gestational age Encounter for supervision of normal first in first trimester Expected: 09/20/2024 (Approximate), Expires: 09/20/2025[facility] HealthcareComment on above:Expected: 09/20/2024 (Approximate), Expires: 09/20/2025Start: 09-13-2024 End: 50-27-9287xusuazgcai71/29/2025 2:30 PM EDT Initial [facility] [address] [place] [address] BCIY BCP OBStart: 09-13-2024 End: 38-77-3628Kwktryutxbff / ancillary services xhxhpsseuh54/29/2025 2:00 PM EDT Ancillary Procedure [facility] OB [address] [place] [address] UAQM [facility] OBStart: 09-03-2024 End: 94-39-7271Exyqerc evaluation of patient and reportReproductive Endocrinology InfertilityComment on above: scanob scan, non ivfStart: 08-22-2024 End: 916042-ovzugrxfhmtatc D3 [Mass/volume] in Serum or PlasmaVitamin D 25 hydroxy Lab Routine H/O gastric bypass Vitamin D deficiency Expected: 08/22/2024 (Approximate), Expires: 08/22/2025MS HealthcareComment on above: Expected: 08/22/2024 (Approximate), Expires: 08/22/2025Start: 08-22-2024 End: 94-37-9597Sdberfrhv (Vitamin B12) [Mass/volume] in Serum or PlasmaVitamin B12 Lab Routine H/O gastric bypass Expected: 08/22/2024 (Approximate), Expires: 08/22/2025NOMS HealthcareComment on above:Expected: 08/22/2024 (Approximate), Expires: 08/22/2025Start: 08-22-2024 End: 16-76-3554Ueznxtdf (aka Vitamin B1)Thiamine (aka Vitamin B1) Lab Routine H/O gastric bypass Expected: 08/22/2024 (Approximate), Expires: 08/22/2025N[facility] HealthcareComment on above:Expected: 08/22/2024 (Approximate), Expires: 08/22/2025Start: 08-22-2024 End: 19-73-0943Kfkzfxgpzta [Units/volume] in Serum or PlasmaTSH Lab Routine Abnormal thyroid function test Expected: 08/22/2024 (Approximate), Expires: 08/22/2025[facility] HealthcareComment on above:Expected: 08/22/2024 (Approximate), Expires: 08/22/2025Start: 08-22-2024 End: 01-53-7945Dqrfxtdrz (T4) free [Mass/volume] in Serum or PlasmaT4, free Lab Routine Abnormal thyroid function test Expected: 08/22/2024 (Approximate), Expires: 08/22/2025[facility] HealthcareComment on above:Expected: 08/22/2024 (Approximate), Expires: 08/22/2025Start: 08-22-2024 End: 75-41-4759Dpfpmiascsjdghqw (T3) Free [Mass/volume] in Serum or PlasmaT3, free Lab Routine Abnormal thyroid function test Expected: 08/22/2024 (Approximate), Expires: 08/22/2025[facility] Work Phone: Comment on above:Expected: 08/22/2024 (Approximate), Expires: 08/22/2025Start: 08-22-2024 End: 58-88-4169Lyinxmm encounter hznasqzsi77/07/2025 10:00 AM EDT Office Visit [facility] [address] [place] [id number] Darleen Sinclair MD [address] [place] [address] [facility]SKAGIT [facility] ENDOCRINOLOGYComment on above:Arrived Start: 08-20-2024 End: 54-00-1577PHKGIVPHG ULTRASOUND WHIOBSTETRIC ULTRASOUND WHI Anc Imaging Routine 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) Expected: 08/20/2024, Expires: 08/20/2025[facility] Work Phone: Comment on above:Expected: 08/20/2024, Expires: 08/20/2025Start: 08-20-2024 End: 48-12-9003wiyskddlza41/05/2025 8:30 AM EDT [facility] Reproductive Endocrinology Infertility [address] [place] [address] Melodie Hernandez APRN.ASSOCIATE PROFESSOR OF THEATRE [address] [place] [address] preg apptReproductive Endocrinology Infertility Comment on above:preg apptStart: 07-07-2024 End: 57-09-3356Vlfvqij encounter [facility]M [facility] Comment on above:donor thawiui dStart: 05-09-2024 End: 90-34-4048ztkvnjrexa47/22/2025 8:00 AM EST [facility] Reproductive Endocrinology Infertility [address] [place] [address] Melodie Hernandez APRN.ASSOCIATE PROFESSOR OF THEATRE [address], [place] [address] donor sperm teachReproductive Endocrinology InfertilityComment on above:donor sperm teachStart: 20-95-0215Lqdpbpg referral [facility] Work Phone: Start: 03-11-2024 End: 763579-wbflirahoaekll D3 [Mass/volume] in Serum or PlasmaVITAMIN D 25 HYDROXY Lab Routine Reproductive mgmt, 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 Expected: 03/11/2024, Expires: 06/10/2024[facility] ClinicComment on above:Expected: 03/11/2024, Expires: 06/10/2024Start: 03-11-2024 End: 29-69-7100ZPSVAZS SCREEN, EXPANDEDCARRIER SCREEN, EXPANDED Lab Routine Encounter for other genetic testing of female for procreative management Expected: 03/11/2024, Expires: 06/10/2024[facility] ClinicComment on above: Expected: 03/11/2024, Expires: 06/10/2024Start: 03-11-2024 End: 70-22-4172Aysxhkfpk trachomatis+Neisseria gonorrhoeae DNA [Presence] in Unspecified specimen by AC with probe detectionGONORRHEA/CHLAMYDIA NAAT Lab Routine Special screening examination for infectious diseases Expected: 03/11/2024, Expires: 06/10/2024[facility] ClinicComment on above:Expected: 03/11/2024, Expires: 06/10/2024Start: 03-11-2024 End: 58-44-5602Eqhtbbxwxdorhhk IgG Ab [Units/volume] in Serum or PlasmaCMV IGG ANTIBODY BL Lab Routine Special screening examination for infectious diseases Expected: 03/11/2024, Expires: 06/10/2024[facility] ClinicComment on above: Expected: 03/11/2024, Expires: 06/10/2024Start: 03-11-2024 End: 23-12-1318Vhgpgnudyvosjzs IgM Ab [Units/volume] in Serum or PlasmaCMV IGM AB Lab Routine Special screening examination for infectious diseases Expected: 03/11/2024, Expires: 06/10/2024[facility] ClinicComment on above:Expected: 03/11/2024, Expires: 06/10/2024Start: 03-11-2024 End: 18-65-6043Ecfgoxjwss A1c in BloodHEMOGLOBIN A1C Lab Routine Reproductive mgmt, 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 Expected: 03/11/2024, Expires: 06/10/2024 [facility] CenterComment [facility]:Expected: 03/11/2024, Expires: 06/10/2024Start: 03-11-2024 End: 87-27-5377Jmreyailq B virus core Ab [Presence] in SerumHEPATITIS B CORE ANTIBODY TOTAL Lab Routine Special screening examination for infectious diseases Expected: 03/11/2024, Expires: 06/10/2024[facility] ClinicComment on above: Expected: 03/11/2024, Expires: 06/10/2024Start: 03-11-2024 End: 88-28-2885Ywixyyonl B virus surface Ag [Presence] in SerumHEPATITIS B SURFACE ANTIGEN Lab Routine Special screening examination for infectious diseases Expected: 03/11/2024, Expires: 06/10/2024[facility] ClinicComment on above:Expected: 03/11/2024, Expires: 06/10/2024Start: 03-11-2024 End: 20-59-4007Szliyffaq C virus Ab [Presence] in SerumHEPATITIS C ANTIBODY IA WITH CONFIRMATION Lab Routine Special screening examination for infectious d iseases Expected: 03/11/2024, Expires: 06/10/2024[facility] ClinicComment on above:Expected: 03/11/2024, Expires: 06/10/2024Start: 03-11-2024 End: 51-14-0875KMD 1+2 Ab [Presence] in Serum or Plasma by ImmunoassayHIV 1/2 COMBO WITH REFLEX TO DIFFERENTIATION Lab Routine Special screening examination for infectious diseases Expected: 03/11/2024, Expires: 06/10/2024[facility] ClinicComment on above:Expected: 03/11/2024, Expires: 06/10/2024Start: 03-11-2024 End: 43-34-9603KOVCADC IGG ANTIBODYRUBELLA IGG ANTIBODY Lab Routine Special screening examination for infectious diseases Expected: 03/11/2024, Expires: 06/10/2024[facility] ClinicComment on above:Expected: 03/11/2024, Expires: 06/10/2024Start: 03-11-2024 End: 58-44-9587AWTMXFUP TREPONEMAL W/REFLEXSYPHILIS TREPONEMAL W/REFLEX Lab Routine Special screening examination for infectious diseases Expected: 03/11/2024, Expires: 06/10/2024[facility] ClinicComment on above:Expected: 03/11/2024, Expires: 06/10/2024Start: 03-11-2024 End: 10-72-9881QCQG + SCREEN PRENATALTYPE + SCREEN Blood Bank Routine Reproductive mgmt, 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 Expected: 03/11/2024, Expires: 06/10/2024[facility] ClinicComment on above:Expected: 03/11/2024, Expires: 06/10/2024Start: 03-11-2024 End: 45-62-5391ORVPDDQZP ZOSTER IGGVARICELLA ZOSTER IGG Lab Routine Special screening examination for infectious diseases Expected: 03/11/2024, Expires: 06/10/2024[facility] Work Phone: Comment on above:Expected: 03/11/2024, Expires: 06/10/2024Start: 03-09-2024 End: 30-02-2904rkxptptkaf83/22/2024 10:00 AM EST [facility] Reproductive Endocrinology Infertility [address] [place] [address] Melodie Hernandez APRN.ASSOCIATE PROFESSOR OF THEATRE [address] [place] [address] Donor sperm teachReproductive Endocrinology InfertilityComment on above:Donor sperm teachStart: 02-20-2024 End: 85-76-0899Nafiuzl encounter amzebfgle27/04/2024 2:50 PM EST Office Visit [facility] OB [address] [place] [id number] Les Martinez, DO [address] [place], [place] [id number] ArrivedNOMS BCP OBComment on above:ArrivedStart: 57-74-6969Cuigh-19 Vaccine ( season)Covid-19 Vaccine ( season)[facility]: 47-65-3997Mxtco-19 Vaccine ( season) Covid-19 Vaccine ( season)[facility]: 77-97-9249Wzpmshkxe vaccinationInfluenza Vaccine (#1)[facility] HealthcareStart: 12-07-2023 End: 15-11-6981OodazblxxOur Lady of Mercy Hospital - Andersontart: 90-41-8699TuoglvlrrMount St. Mary Hospital CenterStart: 67-81-3021RufpsgxqhMount St. Mary Hospital CenterStart: 22-25-4681SvuwjchamMount St. Mary Hospital CenterStart: 81-93-5917KozhzeabbOur Lady of Mercy [facility] - Andersontart: 06-11-2022 End: 65-90-3527PzjuzrhyiMount St. Mary Hospital CenterStart: 85-90-1642Meekelsu admissionOur Lady of Mercy Hospital - Andersontart: 25-96-8214KghvcsuesMount St. Mary Hospital CenterStart: 13-45-6850RohiyraekOur Lady of Mercy Hospital - Andersontart: 33-21-9954MqvqfthglOur Lady of Mercy Hospital - Andersontart: 61-66-7495Iywpgfut identified in Urine by CultureUrine CultureOur Lady of Mercy Hospital - Andersontart: 32-84-7087Qhapgbgi identified in Urine by CultureUrine CultureOur Lady of Mercy Hospital - Andersontart: 05-16-2020 End: 82-19-4338Jmavop Visit05/16/2020 Office Visit Bariatrics Rashard Olivera, [address] [place] [address] [facility]ille [facility] Invasive Bariatric SurgStart: 05-06-2020 End: 43-31-0086Badsutdv EncounterST ORComment on above:XI LAPAROSCOPIC ROBOTIC GASTRIC BYPASS BEN-EN-Y, LIVER BIOPSY, EGD- GI UNIT SCHEDULED.Start: 05-02-2020 End: 18-91-4546GMRVMCOVID- Lab Routine Pre-op testing Expected: 05/02/2020, Expires: 05/01/2021[facility] on above:Expected: 05/02/2020, Expires: 05/01/2021tart: 05-02-2020 End: 80-97-7118Sshzym VisitLegacy [facility] Invasive Bariatric SurgStart: 88-70-0259KMD QnTSH testingElyria Memorial Hospital: 81-81-4038Eaofcimrn vaccinationFlu vaccine (#1)[facility]: 16-55-6700Upqzgvoct for malignant neoplasm of cervixSuburban Community Hospital & Brent[facility] Hospitaltart: 98-37-4832MWdV,Tdap and Td Vaccines (1 - Tdap)DTaP,Tdap and Td Vaccines (1 - Tdap)[facility]: 80-08-9413ANhW/Tdap/Td vaccine (1 - Tdap)DTaP/Tdap/Td vaccine (1 - Tdap)[facility]: 47-18-4733Vaynrcgeb B Vaccine (1 of 3 - 19+ 3-dose series) Hepatitis B Vaccine (1 of 3 - 19+ 3-dose series)[facility]: 71-43-4687Mekqrnakd B Vaccines (1 of 3 - 19+ 3-dose series)Hepatitis B Vaccines (1 of 3 - 19+ 3-dose series)[facility]: 2014 Urine microalbumin profileDTaP,Tdap,Td Vaccine (1 - Tdap)[facility]: 22-37-5095Tsmru BMI Follow Up PlanAdult BMI Follow Up PlanAtrium Health Kings Mountaintart: 84-71-8887Lnmve BMI ScreeningAdult BMI ScreeningAtrium Health Kings Mountaintart: 44-94-0040Rphxamj ScreeningAnxiety ScreeningSuburban Community Hospital & [facility] Hospitaltart: 86-89-4514Bzkphminmw ScreeningDepression ScreeningSuburban Community Hospital & [facility] Hospitaltart: 69-77-5143Pqwscijjv C screeningHepatitis C ScreeningSuburban Community Hospital & [facility] Hospitaltart: 46-43-0889MBB screeningHIV ScreeningSuburban Community Hospital & [facility] Hospitaltart: 69-77-0018FTL screeningHIV screenElyria Memorial Hospital: 14-68-6373Yicnywydk vaccination Varicella Vaccines (1 of 2 - 13+ 2-dose series)[facility] Start: 47-25-9513Tnwsmyxjrm ScreeningDepression ScreeningK[facility]tering Health [facility] Start: 32-79-4922Olhilht ScreeningTobacco ScreeningAtrium Health Kings Mountaintart: 10-24-8410CLD vaccine (1 - 2-dose series)HPV vaccine (1 - 2-dose series)[facility]: 13-92-5442MST Vaccines (1 of 1 - Standard series)MMR Vaccines (1 of 1 - Standard series)[facility]: 92-03-2441Mjcufuwxe vaccine (1 of 2 - 2-dose childhood series)Varicella vaccine (1 of 2 - 2-dose childhood series)[facility]: 19-52-8927Bumzcklrm C screeningHepatitis C [facility]: 50-51-3561NGB screening HIV ScreeningMcCullough-Hyde Memorial Hospital: 28-44-0376Qydfn panelLipid PanelMcCullough-Hyde Memorial Hospital: 41-89-5262Gstobp Adult Physical Yearly Adult PhysicalUnTriHealth McCullough-Hyde Memorial HospitalaPTT in Platelet poor plasma by Coagulation assayFirelands Regional Medical CenterBacteria identified in Genital specimen by Aerobe cultureClermont County HospitalBacteria identified in Urine by CultureUrine culture Microbiology Routine Missed menses Ordered: 09/20/2024[facility] HealthcareComment on above:Ordered: 09/20/2024alcitriol [Mass/volume] in Serum or PlasmaClermont County HospitalCBC W Auto Differential panel - BloodCBC and differential Lab Routine Missed menses , unspecified gestational age Ordered: 09/20/2024[facility] HealthcareComment on above:Ordered: 09/20/2024HLAMYDIA TRACHOMATIS (GENITO/STI)CHLAMYDIA TRACHOMATIS (GENITO/STI) Lab Routine Exposure to STD Ordered: 11/20/2024[facility] HealthcareComment on above:Ordered: 11/20/2024ontinuous pulse oximetryPulse oximetry, continuous Respiratory Care Routine Every 4hr until discontinued starting 05/06/2020[facility] [place], [place] on above:Every 4hr until discontinued starting 05/06/2020T Abdomen and Pelvis WO and W contrast IV [facility] HospitalCytology Cervical or vaginal smear or scraping studyPap Smear Pathology and Cytology Routine Well woman exam with routine gynecological exam Ordered: 02/20/2024[facility] Work Phone: comment on above:Ordered: 02/20/2024Electromyography [facility] County HospitalF5 gene mutations found [Identifier] in Blood or Tissue by Molecular genetics method NominalClermont County Hospital Factor VIII: C assayClermont County HospitalGlucose measurement estimated from glycated hemoglobinClermont County HospitalHemoglobin A1c/Hemoglobin.total in [facility] CenterHemoglobin A1c/Hemoglobin.total in BloodHemoglobin A1c Lab Routine Missed menses , unspecified gestational age Ordered: 09/20/2024[facility] HealthcareComment on above: Ordered: 09/20/2024Hepatitis B virus surface Ag [Presence] in Serum or Plasma by ImmunoassayHepatitis B surface antigen Lab Routine Missed menses , unspecified gestational age Ordered: 09/20/2024[facility] HealthcareComment on above: Ordered: 09/20/2024Hepatitis C virus Ab [Presence] in Serum or Plasma by ImmunoassayHepatitis C antibody Lab Routine Missed menses , unspecified gestational age Ordered: 09/20/2024[facility] HealthcareComment on above:Ordered: 09/20/2024HIV-1/HIV-2 antigen/antibody combination immunoassayHIV-1 and HIV-2 antibodies Lab Routine Missed menses , unspecified gestational age Ordered: 09/20/2024[facility] HealthcareComment on above:Ordered: 09/20/2024INR in Platelet poor plasma by Coagulation assayClermont County Hospital Mullerian inhibiting substance [Mass/volume] in Serum or PlasmaClermont County HospitalNebulizer therapyHHN Treatment Respiratory Care Routine TID until discontinued starting 05/06/2020[facility], [place]Comment on above: TID until discontinued starting 05/06/2020Neisseria gonorrhoeae DNA [Presence] in Unspecified specimen by AC with probe detectionNeisseria gonorrhea DNA probe, direct Lab Routine Exposure to STD Ordered: 11/20/2024[facility] Comment on above:Ordered: 11/20/2024Oxygen therapy [Minimum Data Set]Initiate Oxygen Therapy Protocol Respiratory Care Routine Daily until discontinued starting 05/06/2020[facility], KYComment on above:Daily until discontinued starting 05/06/2020atient EducationMount [address]. Mary Hospital Ctr Work Phone: Patient referralMount St. Mary Hospital Ctr Work Phone: Reagin Ab [Presence] in Serum by RPRRPR Lab Routine Missed menses , unspecified gestational age Ordered: 09/20/2024[facility] HealthcareComment on above:Ordered: 09/20/2024Rubella antibody, IgGRubella antibody, IgG Lab Routine Missed menses , unspecified gestational age Ordered: 09/20/2024[facility] HealthcareComment on above:Ordered: 09/20/2024Spirometry panelIncentive spirometry Respiratory Care Routine Every 2hr while awake until discontinued starting 05/06/2020[facility], KYComment on above:Every 2hr while awake until discontinued starting 05/06/2020URESWAB(R) ADVANCED VAGINITIS PLUS, TMASURESWAB(R) ADVANCED VAGINITIS PLUS, TMA Pathology and Cytology Routine Exposure to STD Ordered: 11/20/2024[facility] Work Phone: comment on above:Ordered: 11/20/2024Surgical Pathology Surgical Pathology Lab Routine Release Upon Ordering for 1 Occurrences starting 05/06/2020[place], [place]:Release Upon Ordering for 1 Occurrences starting 05/06/2020 End: 42-16-0969Waptbwdpjey [Units/volume] in Serum or PlasmaTSH Lab Routine Thyroid disease every 4 weeks for 6 Occurrences starting 11/20/2024 until 11/20/2025[facility] HealthcareComment on above:every 4 weeks for 6 Occurrences starting 11/20/2024 until 11/20/2025Thyrotropin [Units/volume] in Serum or PlasmaTSH Lab Routine TSH (thyroid-stimulating hormone deficiency) Ordered: 01/16/2025[facility] HealthcareComment on above:Ordered: 01/16/2025von Willebrand factor (vWf) Ag [Units/volume] in Platelet poor plasmaClermont County Hospitalvon Willebrand factor (vWf) multimers in Platelet poor plasma by [facility] Hospitalvon Willebrand factor (vWf) ristocetin cofactor actual/normal in Platelet poor plasma by Platelet ag [facility] Immunizations Immunization DateImmunizationNotesCare DdejywbpAjjlauty97-10-9575vvjjfkr toxoid, reduced diphtheria toxoid, and acellular pertussis vaccine, Melvin Sinclair MD Work Phone: [facility] JoplinWwupdlprvy48-66-6123JFQEW-02 mRNA-1273 (Moderna) MELY Ford Work Phone: [facility]04-06-2021COVID-19 mRNA-1273 (Moderna)MELY Ford Work Phone: [facility] Payers DatePayer CategoryPayerPolicy [id number] 2023Medicaid [id number] [id number] [id number] 1.2.840.098998.1.13.239.2.7.3.090061.60838-57-8368Kndmhdu [id number] 2..840.1.881750.3.57[id number] 2..840.1.962923.3.579.2.10[id number] 2..840.1.174066.3.57[id number] 2..840.1.252619.3.57[id number] 2..840.1.782254.3.579.2.[id number] 2..840.1.529535.3.579.2.913709-38-1148Hcxlowa94602079 2..840.1.410442.3.579.[id number] 2..840.1.664527.3.579.[id number] 2.16.840.1.303682.3.57[id number] 2.840.1.154030.3.579.[id number] 2.16.840.1.003758.3.579.2.73634-08-4354Eawmljd86813158 2..840.1.734476.3.579.2.21383-52-8586Rqmnezk57247316 2.840.1.778071.3.579.2.68602-84-4888Xivmret891809703 2.840.1.208346.3.57[id number] 2.0.1.521123.3.579.[id number] 2.840.1.900436.3.579.2.449106-98-9014Uofysjd823441876 2..1.738646.3.57[id number] 2.0.1.704376.3.579.2.129301-79-4900Kuicbbc09691497 2..1.387805.3.579.2.[id number] 2..1.226543.3.579.2.572036-07-6968Bqvljkp43656017 2.0.1.012389.3.579.2.377149-00-3384Ptoygek00320515 2..1.978517.3.579.2.180926-63-0067Lkszkes28116460 2.840.1.549077.3.579.2.331173-68-0500Qqhcoki78923754 2.0.1.892267.3.579.2.370814-62-7007Gyfvmwh47903844 2.840.1.305295.3.579.2.010041-50-0298Exfgkle18993900 2.0.1.811834.3.579.2.189215-43-9339Wkwrphl36100480 2.16.840.1.176132.3.579.2.180909-69-9570Bggypim4216559 2.16.840.1.619006.3.579.2.1259Prhoustonte [facility] Health Claims [id number] 2.16.840.1.778637.13Bcofzgm08191539 2.16.840.1.219491.3.579.2.954Mgjapfl56059798 2.16.840.1.008194.3.579.2.613Cewegqf13644883 2.16.840.1.612310.3.579.2.531 Social History DateTypeDetailFacilityStart: 04-22-2020 End: 30-03-6234Pjugddz smoking status NHISNever smokerElyria Memorial Hospital: 04-22-2020 End: 06-37-8235Svjrtbo use and exposureNever usedElyria Memorial Hospital: 04-22-2020 End: 68-20-0895Rpkzwff intakeCurrent non-drinker of alcohol (finding)[facility]: 38-07-1915Lpo Assigned At BirthNot on [place], [place]Exposure to SARS-CoV-2 (event)Not sureElyria Memorial Hospital: 01-17-2023 Tobacco smoking statusNeverMemorial Health System [facility] CenterStart: 11-28-2023 End: 68-14-0490Ixr Assigned At [facility] HospitalFeH[facility] Easy Metrics Other Start: 36-10-9726Bay Assigned At [facility] Memorial HospitalFeOhioHealth Hardin Memorial Hospitaltart: 48-77-3061Utcgfbk smoking status NHISCurrent some day smokerOur Lady of Mercy Hospital - Andersontart: 04-18-2023 End: 48-94-0644Wtfdhbb smoking status NHISSmoker (finding)[facility]art: 11-28-2023 End: 20-15-6047Bkljqyl smoking status NHISSmokes tobacco dailyNOMS Healthcare Start: 15-99-6015Mrurbfu of tobacco useCigarette SmokerNOMS HealthcareStart: 11-28-2023 End: 40-53-2212Mpvcghgwdv smoked current (pack per day) - Reported0.5NOMS HealthcareStart: 11-28-2023 End: 45-64-5282Xcxnksdda beverage intakeEx-drinker (finding)[facility] Start: 16-16-8914Wgaupps Commentcaffeine: 1-2 cups per day teaNOMS Healthcare Start: 09-31-9599Wpzgqi identityIdentifies as female gender (finding)[facility] HealthcareStart: 11-21-2014 End: 53-89-5145BtxBsepoz (finding)[facility] HospitalTobacco smoking status NHISTobacco smoking consumption unknownAberdeen ClinicStart: 03-13-1466PqfoswhrvHeroswuwiOur Lady of [facility] Hospital - Andersontart: 10-18-2024 End: 99-03-8336Qcqlzps smoking status NHISEx-smoker (finding)[facility] HospitalNEGATED: Highlighted rowMercy Health St. [facility] Medical Equipment Procedure CodeEquipment CodeEquipment Original TextEquipment IdentifierDates Functional endoscopic sinus surgery (FESS) with sinuplastyBUTTON NASAL SEPTAL 3CMFDAStart: 22-85-5867Ephvdjnrgx endoscopic sinus surgery (FESS) with sinuplastyBUTTON NASAL SEPTAL 3CMFDAStart: 25-33-2226Oqxmhrilib endoscopic sinus surgery (FESS) with sinuplastyBUTTON NASAL SEPTAL 3CMFDAStart: 10-15-2019 Functional endoscopic sinus surgery (FESS) with sinuplastyBUTTON NASAL SEPTAL 3CMFDAStart: [id number] endoscopic sinus surgery (FESS) with sinuplastyBUTTON NASAL SEPTAL 3CMFDAStart: 84-38-2099Mffomqjggb endoscopic sinus surgery (FESS) with sinuplastyBUTTON NASAL SEPTAL 3CMFDAStart: 10-15-2019 Functional endoscopic sinus surgery (FESS) with sinuplastyBUTTON NASAL SEPTAL 3CMFDAStart: 41-56-1546Eoeerwcugc endoscopic sinus surgery (FESS) with sinuplastyBUTTON NASAL SEPTAL 3CMFDAStart: 41-93-2269Untkbffeev endoscopic sinus surgery (FESS) with sinuplastyBUTTON NASAL SEPTAL 3CMFDAStart: 10-15-2019 Functional endoscopic sinus surgery (FESS) with sinuplastyBUTTON NASAL SEPTAL 3CMFDAStart: 14-11-0597Axnlehsapa endoscopic sinus surgery (FESS) with sinuplastyBUTTON NASAL SEPTAL 3CMFDAStart: 72-06-5987Knswmufrtz endoscopic sinus surgery (FESS) with sinuplastyBUTTON NASAL SEPTAL 3CMFDAStart: 10-15-2019 Functional endoscopic sinus surgery (FESS) with sinuplastyBUTTON NASAL SEPTAL 3CMFDAStart: 87-88-8319Ztuvjvrjyd endoscopic sinus surgery (FESS) with sinuplastyBUTTON NASAL SEPTAL 3CMFDAStart: 93-97-8175Toxkhlrbsr endoscopic sinus surgery (FESS) with sinuplastyBUTTON NASAL SEPTAL 3CMFDAStart: 10-15-2019 Functional endoscopic sinus surgery (FESS) with sinuplastyBUTTON NASAL SEPTAL 3CMFDAStart: 86-77-9831Ysiwjlyobg endoscopic sinus surgery (FESS) with sinuplastyBUTTON NASAL SEPTAL 3CMFDAStart: 57-17-4932Uiaabnipde endoscopic sinus surgery (FESS) with sinuplastyBUTTON NASAL SEPTAL 3CMFDAStart: 10-15-2019 Functional endoscopic sinus surgery (FESS) with sinuplastyBUTTON NASAL SEPTAL 3CMFDAStart: 06-88-0301Wbcwfqijzj endoscopic sinus surgery (FESS) with sinuplastyBUTTON NASAL SEPTAL 3CMFDAStart: 82-02-5360Opqyvkagis endoscopic sinus surgery (FESS) with sinuplastyBUTTON NASAL SEPTAL 3CMFDAStart: 10-15-2019 Functional endoscopic sinus surgery (FESS) with sinuplastyBUTTON NASAL SEPTAL 3CMFDAStart: 88-09-5030Rqcyxb/ligament bone anchor, non-bioabsorbable ()[id number] FDAStart: 02-32-2628Mblzgx/ligament bone anchor, non-bioabsorbable()[id number] FDA Start: 32-24-1538Nmxlbk/ligament bone anchor, non-bioabsorbable ()[id number] FDAStart: 56-83-3674Ahutpq/ligament bone anchor, non-bioabsorbable()[id number] FDAStart: 12-07-2023 Goals DatePatient GoalDesired Activity/StatePersonal health goal Functional Status BcmqJmjnqipcvqJuuqfnHwqpehiq59-58-8771Pibttmnjsp statusPatient at Baseline [facility] Work Phone: 1(495) 956-669602985907-28-0731Fkvnhgbyaz statusPatient at Baseline [facility] Work Phone: Mental Status UdpdOcdiccywfhJbnrehMmvkefmy84-83-2423Gplwtwtvp functionCognitive Status Patient at [facility] Work Phone: 1(329) 176-298102-992285-69-5944Mksldfgwi functionCognitive Status Patient at [facility] Work Phone: Clinical Notes 07-16-2021 to 02-19-2025 Note Date & PxxcNufvBumxwbtj75-17-7884 History of Present illness Narrative* Alana Valverde, [...] nursing note reviewed. Exam conducted with a wastewater process engineer present. Vitals: Estimated body mass index is 40.03 kg/m as calculated from the following: Height as of 08/22/24: 5' 11 . Weight as of this encounter: 287 lb. BP: 128/76 No LMP recorded. Patient is . Assessment/Plan ICD-10-CM 1. Third trimester ([facility]) Z34.93 POCT urinalysis dipstick manually resulted 2. 31 weeks gestation of ([facility]) Z3A.31 3. TSH (thyroid-stimulating hormone deficiency) [...] of: Les Martinez DO documented in this encounterMercy Hospital JoplinQqwpforkkq92-57-8892 History of Present illness Narrative* MELVI Engle [...] is . Assessment/Plan ICD-10-CM 1. Third trimester ([facility]) Z34.93 2. 29 weeks gestation of ([facility]) Z3A.29 POCT urinalysis dipstick manually resulted [...] behalf of: MELVI Engle documented in this encounterMercy Hospital JoplinRewttoghvu79-56-3569 History of Present illness Narrative* Mima Duenas [...] nursing note reviewed. Exam conducted with a wastewater process engineer present. Vitals: Estimated body mass index is 38.49 kg/m as calculated from the following: Height as of 08/22/24: 5' 11 . Weight as of this encounter: 276 lb. BP: 122/80 No LMP recorded. Patient is . ASSESSMENT & PLAN ICD-10-CM 1. 26 weeks gestation of ([facility]) Z3A.26 POCT urinalysis dipstick manually resulted 2. Second trimester ([facility]) Z34.92 3. TSH (thyroid-stimulating hormone deficiency) [...] of: Mima Duenas NP documented in this encounterMercy Hospital JoplinZcywzwoafw13-80-1989 Miscellaneous Notes* Telephone Encounter - Roslyn Griffin RN - 01/03/2025 3:44 PM EDT Called patient to schedule her follow up survey in 4-6 weeks per appointment tracker. No answer left message to call back to schedule the follow up ultrasound. documented [facility] Telephone encounter Note* Telephone Encounter - Roslyn Griffin RN - 01/03/2025 3:44 PM EDT Called patient to schedule her follow up survey in 4-6 weeks per appointment tracker. No answer left message to call back to schedule the follow up ultrasound. [facility]09-03-2025 History of Present illness Narrative* MELVI Engle [...] PLAN ICD-10-CM 1. 22 weeks gestation of ([facility]) Z3A.22 POCT urinalysis dipstick manually resulted 2. Second trimester ([facility]) Z34.92 POCT urinalysis dipstick manually [...] behalf of: MELVI Engle documented in this encounterMercy Hospital JoplinTeyddzkwex72-91-2408 History of Present illness Narrative* Enrike Lindquist MD - 12/05/2024 2:00 PM EDT Images from the original note were not included. [facility]- [facility] Consult Note Reason For Consult: HPI: Jza Sanders is a 29 y.o. at 20w1d [...] follows with the behavioral health up in [place] History of migraines. Has been getting some [...] Pee's thyroiditis Hx of iron deficiency anemia [place] product of in vitro fertilization (IVF) Ovarian [...] mouth in the morning., Disp: , Rfl: [id number]-sfjy-jyakl acid ( 19) 29 mg iron- 1 [...] Calcium: recommend 1000-1200mg daily; if deficient, recommend 7090-8665 mg PO daily in divided doses Vitamin [...] 5. 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 ([facility]) I reviewed with the [...] levels of her lamotrigine checked in the syrf6ua and 3rd trimester in order to ensure [...] sometimes have neonates with adaptation syndrome. The supervisor machine workers should be made awareat the time of [...] Enrike Lindquist MD, FACOG (she/hers) Maternal- Medicine [facility] [address] [place] [address] This document was created with [employer] technology. Though I make every effort to review the dictation as it is transcribed, on occasion the spoken word can be misinterpreted by the technology leading to inappropriate words, phrases, or sentences. This note is addressed to the requesting provider as a consultation for clinical guidance. Specificmedical abbreviations are occasionally used and those are generally approved by the [place]?Board of?Obstetrics and?Gynecology?as well as?Marilee s abbreviations. The above plan of care was based solely on the diagnoses for which a consultation was requested. ?More frequent testing may be indicated based on her other medical/obstetrical conditions. The management of other or medical conditions is beyond the scope of requested consultation and will c ontinue to be followed by the primary supervisor steel division or primary care provider. Note to patient: [...] having gastric bypass surgery documented in this encounterK[facility]08-05-2025 History of Present illness Narrative* Alana Valverde [...] nursing note reviewed. Exam conducted with a wastewater process engineer present. Vitals: Estimated body mass index [...] gonorrhea DNA probe, direct 3. Second trimester ([facility]) Z34.92 POCT urinalysis dipstick manually resulted 4. 18 weeks gestation of ([facility]) Z3A.18 5. Need for maternal serum alpha-protein (MSAFP) screening ([facility]) Z36.1 Alpha fetoprotein, maternal Alpha fetoprotein, maternal 6. Screening, , for anatomic survey ([facility]) Z36.89 US OB 14+ weeks anatomy [...] of: Les Martinez DO documented in this encounterMercy Hospital JoplinRmodlxjksg48-08-6924 History of Present illness Narrative* Mima Duenas [...] nursing note reviewed. Exam conducted with a wastewater process engineer present. Vitals: Estimated body mass index is 31.24 kg/m as calculated from the following: Height as of 08/22/24: 5' 11 . Weight as of this encounter: 224 lb. BP: 110/62 No LMP recorded. Patient is . ASSESSMENT & PLAN ICD-10-CM 1. 13 weeks gestation of ([facility]) Z3A.13 POCT urinalysis dipstick manually resulted 2. Second trimester ([facility]) Z34.92 POCT urinalysis dipstick manually resulted 3. Thyroid disease E07.9 4. H/O gastric sleeve Z90.3 5. H/O iron deficiency anemia Z86.2 6. resulting from in vitro fertilization in first trimester ([facility]) O09.811 Return OB: Patient presents today [...] of: Les Martinez DO documented in this encounterMercy Hospital JoplinTwdeouokbg23-64-3689 Radiology Diagnostic study [facility] [place] [address] [place] [address] Ultrasound Report Signed Patient: Jaz Sanders MR#: [id number] : 1995 Acct:[id number] Age/Sex: 29 / F ADM Date: 5 Loc: ER Room: Type: [facility] ER Attending Dr: Ordering Provider: [...] Jr., D.ORenae 10/18/2024 2:21 PM Dictation Location: [place] [address] Tech: Natalie Raissa Transcribed By: MAITE 10/18/24 1421 Dictated By: Sravan Dickinson Jr, DO 10/18/24 1419 Signed By: 10/18/24 1421 [facility]06-05-2025 History of Present illness Narrative [...] screen, urine; Future Nurse Note: Patient declined [place] at this time. Patient is an IVF from [facility]. OB Intake: Patient presents today [...] by: Marsha Asif MA documented in this encounterMercy Hospital JoplinMwieknqnhq91-67-7346 NoteHNO ID: [id number] Author: MELODIE HERNANDEZ APRN.ASSOCIATE PROFESSOR OF THEATRE Service: ? Author Type: Nurse Practitioner Type: [...] 3. Cycle Day: Last menstrual period: 07/19/2024 [place] Protocol: UNIVERSAL PROTOCOL / SAFETY CHECKLIST Procedure [...] Sanders DATE: September 05, 2024 TIME: 10:45 [facility]05-19-2025 History of Present illness Narrative* Manisha Weaver [...] 03, 2024 5:39 PM documented in this encounterAdena [facility]05-19-2025 NoteHNO ID: [id number] Author: MANISHA WEAVER APRN.CNP Service: ? Author [...] Plan Move on to OB Manisha Weaver APRN.ASSOCIATE PROFESSOR OF THEATRE September 03, 2024 5:39 [facility]05-15-2025 NoteHNO ID: [id number] Author: MIKEY TORRES MD Service: ? Author Type: Physician Type: Progress Notes Filed: 08/30/2024 16:36 Note Text: Viable ratliff IUP Size equal Date. Plan: patient to follow up with her ob for care. Stacy Banuelos [facility]05-15-2025 History of Present illness Narrative* Mikey [...] scheduled Melodie Hernandez APRN.JARROD documented in this encounterAdena [facility]05-13-2025 NoteHNO ID: [id number] Author: MELODIE HERNANDEZ APRN.CNP Service: ? Author [...] scan next week as scheduled Melodie Hernandez APRN.CNPThe [facility]05-09-2025 Telephone encounter Note* Telephone Encounter [...] open slot. Call to patient needed: no [facility]05-09-2025 Miscellaneous Notes* Telephone Encounter - [...] Jaz Sanders called today. : 1995 (home) [phone] (cell) Reason for call: pt called today informing the nurse she has been experiencing pain of level 4 from1-10. Pt has been experiencing pain for 2 day. 5 weeks today. The patients preferred pharmacy has been captured for this encounter? Angella Morillo Business Development Officer documented in this encounterAdena [facility] Medical Center05-09-2025 Telephone encounter Note * Telephone Encounter - Arminda Ward RN - 08/24/2024 1:58 PM EDT See 08/23/24 LIBBY Ward RN August 24, 2024 1:58 PM [facility]05-09-2025 Miscellaneous Notes* Telephone Encounter - Arminda Ward RN - 08/24/2024 1:58 PM EDT See 08/23/24 LIBBY Ward RN August 24, 2024 1:58 PM * Telephone Encounter - Manisha Ding - 08/24/2024 11:52 AM EDT Pt would like a call back documented in this encounterAdena [facility] Medical Center05-09-2025 Telephone encounter Note * Telephone Encounter - Manisha Ding - 08/24/2024 11:52 AM EDT Pt would like a call back [facility]05-08-2025 Telephone encounter Note* Telephone Encounter - Angella Mccarthy - 08/23/2024 10:37 AM EDT Name: Jaz Sanders called today. : 1995 (home) [phone] (cell) Reason for call: pt called today informing the nurse she has been experiencing pain of level 4 from1-10. Pt has been experiencing pain for 2 day. 5 weeks today. The patients preferred pharmacy has been captured for this encounter? Angella Morillo Business Development Officer [facility]05-08-2025 Telephone encounter Note* Telephone Encounter - Arminda Ward RN - 08/23/2024 8:53 AM EDT See 08/20 Distance health visit Arminda Ward RN August 23, 2024 8:53 AM [facility]05-08-2025 Miscellaneous Notes* Telephone Encounter - Arminda Ward RN - 08/23/2024 8:53 AM EDT See 08/20 Distance health visit Arminda Ward RN August 23, 2024 8:53 AM documented in this encounterAdena Regional Medical Center05-07-2025 History of Present illness Narrative* [...] levothyroxine 50 mcg daily, administered in the type copy examiner on an empty stomach. There have been [...] 1 year (around 08/22/2025). documented in this encounterMercy Hospital JoplinRvkqnyhvlk85-86-0092 NoteHNO ID: [id number] Author: MELODIE HERNANDEZ APRN.ASSOCIATE PROFESSOR OF THEATRE Service: ? Author Type: Nurse Practitioner Type: [...] visit. Either the patient or their legal motor vehicle field representative has been informed of the [...] providers Schedule with OB: 09/13 Melodie Hernandez APRN.ASSOCIATE PROFESSOR OF THEATRE August 20, 2024 8:33 AM Please schedule the patient for the following- Location: [place] Provider: nurse Visit type: Reason for visit/appointment notes: scan Date: 09/03 Time (requested): 1040 If slot is full, please schedule the closest open slot. Call to patient needed: no I spent a total of 30 minutes on the date of the service which included preparing to see the patient, lwve-mz-ufdh patient care, completing clinical documentation, obtaining and/or [...] be grammatical and typographical errors missed in proofreading.[facility]05-05-2025 History of Present illness Narrative* [...] visit. Either the patient or their legal motor vehicle field representative has been informed of the [...] schedule the patient for the following- Location: [place] Provider: nurse Visit type: Reason for visit/appointment notes: scan Date: 09/03 Time (requested): 1040 If slot is full, please schedule the closest open slot. Call to patient needed: no I spent a total of 30 minutes on the date of the service which included preparing to see the patient, efcw-vy-drpk patient care, completing clinical documentation, obtaining and/or [...] errors missed in proofreading. documented in this encounterAdena [facility] Center05-01-2025 Telephone encounter Note * Telephone Encounter - Daniel Hanna APRN.CNP - 08/16/2024 5:15 PM EDT Called patient back to phone number listed in CourseAdvisor-no answer. Lm for patient to look out for Mychart message. Daniel Hanna APRN.CNP August 16, 2024 5:15 PM [facility]05-01-2025 Miscellaneous Notes* Telephone Encounter - Daniel Hanna APRN.CNP - 08/16/2024 5:15 PM EDT Called patient back to phone number listed in CourseAdvisor-no answer. Lm for patient to look out for Mychart message. Daniel Hanna APRN.CNP August 16, 2024 5:15 PM * Telephone Encounter - Angella Mccarthy - 08/16/2024 12:29 PM EDT Name: Jaz Sanders called today. : 1995 (home) [phone] (cell) Reason for call: pt called that she got positive test, she has been having having cramping since last night , it happens every hours for couple minutes. The patients preferred pharmacy has been captured for this encounter? yes Angella Morillo Business Development Officer documented in this encounterAdena [facility] Medical Center05-01-2025 Telephone encounter Note * Telephone Encounter - Angella Mccarthy - 08/16/2024 12:29 PM EDT Name: Jaz Sanders called today. : 1995 (home) [phone] (cell) Reason for call: pt called that she got positive test, she has been having having cramping since last night , it happens every hours for couple minutes. The patients preferred pharmacy has been captured for this encounter? yes Angella Morillo Business Development Officer [facility]04-30-2025 Telephone encounter Note* Telephone Encounter - Manisha Ding - 08/15/2024 2:10 PM EDT Pt is preg and wants to know if she can take benadryl due to her having hives [facility]04-30-2025 Miscellaneous Notes* Telephone Encounter - Manisha Ding - 08/15/2024 2:10 PM EDT Pt is preg and wants to know if she can take benadryl due to her having hives documented in this encounterAdena Regional Medical Center04-15-2025 NoteHNO ID: [id number] Author: DOMINGUEZ BARRY, ? Service: ? Author Type: Ice Plant Operator Type: Progress Notes Filed: 09/05/2024 22:45 Note Text: IUI Cryobio Donor # [id number] Pre: frozen washed specimen Post: 82 M/ml, 67% Insem # 27.5 millionThe [facility]04-15-2025 NoteHNO ID: [id number] Author: DOMINGUEZ BARRY, ? Service: ? Author Type: Ice Plant Operator Type: Progress Notes Filed: 07/31/2024 15:26 Note Text: Thaw for IUI. [facility]Pe[facility]04-15-2025 History of Present illness Narrative* Dominguez Barry - 07/31/2024 3:25 PM EDT Thaw for IUI. Dominguez Barry documented in this encounterAdena Regional Medical Center04-15-2025 NoteHNO ID: [id number] Author: DOMINGUEZ BARRY, ? Service: ? Author Type: Ice Plant Operator Type: Progress Notes Filed: 09/05/2024 22:45 Note Text: IUI specimen released to provider Dominguez Barry July 31, 2024 3:24 [facility]04-15-2025 NoteHNO ID: [id number] Author: MUSTAPHA TELLO MA Service: ? Author Type: Videogame Tester Type: Progress Notes Filed: 07/31/2024 15:12 Note Text: Patient verified by full name and date of . Jaz Sanders is here today for an IUI. LMP: 07/19/2024 Natural cycle IUI Timed With: Ovulation Predictor Kit , Date: 07/30/2024 Watch Commander offered: Patient declines Mustapha Tello MA July 31, 2024 3:12 [facility]04-14-2025 Telephone encounter Note* Telephone Encounter - Melodie Hernandez APRN.CNP - 07/30/2024 5:58 PM EDT patient's OPK today was dark but not positive Plan: test again tomorrow. if darker, schedule IUI on Tuesday if bouffant curtain machine tender than today, schedule IUI the same day Melodie Hernandez APRN.CNP July 30, 2024 6:00 PM [facility]04-14-2025 Miscellaneous Notes* Telephone Encounter - Melodie Hernandez APRN.CNP - 07/30/2024 5:58 PM EDT patient's OPK today was dark but not positive Plan: test again tomorrow. if darker, schedule IUI on Tuesday if bouffant curtain machine tender than today, schedule IUI the same day Melodie Hernandez APRN.CNP July 30, 2024 6:00 PM * Telephone Encounter - Manisha Ding - 07/30/2024 3:15 PM EDT N- ivf Pt has questions regarding IUI documented in this encounterAdena Regional Medical Center04-14-2025 Telephone encounter Note * Telephone Encounter - Manisha Ding - 07/30/2024 3:15 PM EDT N- ivf Pt has questions regarding IUI [facility]03-23-2025 NoteHNO ID: [id number] Author: NICHELLE GONZALEZ, ? Service: ? Author Type: Ice Plant Operator Type: Progress Notes Filed: 07/19/2024 07:50 Note Text: IUI Cryobio #[id number] Washed frozen specimen Post: 31 m/ml, 77% Insem#: 10.8 millionThe [facility]03-23-2025 History of Present illness Narrative* Nichelle Gonzalez E - 07/08/2024 8:07 AM EDT IUI Cryobio #[id number] Washed frozen specimen Post: 31 m/ml, 77% Insem#: 10.8 million * Nichelle Gonzalez - 07/07/2024 10:10 AM EDT IUI specimen released to provider Nichelle Gonzalez July 07, 2024 10:10 AM documented in this encounterAdena Regional Medical Center03-22-2025 NoteHNO ID: [id number] Author: NICHELLE GOZNALEZ, ? Service: ? Author Type: Ice Plant Operator Type: Progress Notes Filed: 07/19/2024 07:50 Note Text: IUI specimen released to provider Nichelle Gonzalez July 07, 2024 10:10 [facility]03-22-2025 NoteHNO ID: [id number] Author: MIKEY TORRES MD Service: ? Author Type: Physician Type: Procedures Filed: 07/19/2024 07:48 Note Text: WHI JAMEL IUI PROCEDURE NOTE Date: 07/07/2024 Primary Proceduralist: Nakia Duran MD Consents and Labels Consent Signed: Informed Consent obtained and on the chart Labels Verified With Patient: Yes Indications: Jaz Snaders, is a 29 year old No obstetric history on file. female here today for intrauterine insemination. IUI # 2. Cycle Day: 14 Last menstrual period: 06/24/2024 [place] Protocol: UNIVERSAL PROTOCOL / SAFETY CHECKLIST Procedure [...] the primary surgeon/proceduralist with assistance. Stacy Banuelos, [facility]03-22-2025 Procedure note* Mikey Torres MD - [...] Cycle Day: 14 Last menstrual period: 06/24/2024 [place] Protocol: UNIVERSAL PROTOCOL / SAFETY CHECKLIST Procedure [...] primary surgeon/proceduralist with assistance. Stacy Banuelos MD [facility]03-22-2025 Procedure note* Mikey Torres MD [...] Cycle Day: 14 Last menstrual period: 06/24/2024 [place] Protocol: UNIVERSAL PROTOCOL / SAFETY CHECKLIST Procedure [...] assistance. Stacy Banuelos MD documented in this encounterAdena Regional Medical Center03-22-2025 NoteHNO ID: [id number] Author: NICHELLE GONZALEZ, ? Service: ? Author Type: Ice Plant Operator Type: Progress Notes Filed: 07/07/2024 09:41 Note Text: Thaw for IUI Nichelle GonzalezThe [facility] Of [facility]03-22-2025 History of Present illness Narrative* Nichelle Gonzalez - 07/07/2024 9:41 AM EDT Thaw for IUI Nichelle Gonzalez documented in this encounterAdena Regional Medical Center03-21-2025 Telephone encounter Note * Telephone [...] Isaacs PA-C July 06, 2024 3:26 PM [facility]03-21-2025 Miscellaneous Notes* Telephone Encounter - [...] iui tomorrow. Pleasecall patient. documented in this encounterAdena Regional Medical Center03-21-2025 Telephone encounter Note * Telephone Encounter - Sivan Roberto - 07/06/2024 2:39 PM EDT Patient states she is calling back unsure about if she is okay to proceed with iui tomorrow. Pleasecall patient. [facility]03-21-2025 Telephone encounter Note* Telephone Encounter - Arminda Ward RN - 07/06/2024 11:17 AM EDT See other TE for 07/04 Arminda Wrad RN July 06, 2024 11:17 AM [facility]03-21-2025 Miscellaneous Notes* Telephone Encounter - [...] to be removed first. documented in this encounterAdena Regional Medical Center03-20-2025 Telephone encounter Note * Telephone Encounter - Sivan Roberto - 07/05/2024 3:02 PM EDT On day 11 now, inquiring about if okay to proceed with iui with cervical polyp. Patient believes itwill be tomorrow or Tuesday for iui- inquiring if polyp needs to be removed first. [facility]03-19-2025 Telephone encounter Note* Telephone Encounter [...] Hernandez APRN.CNP July 04, 2024 7:30 PM [facility]03-19-2025 Miscellaneous Notes* Telephone Encounter - [...] 04, 2024 7:30 PM documented in this encounterAdena Regional Medical Center03-19-2025 NoteHNO ID: [id number] Author: IGNACIO GUY MD Service: ? Author Type: Physician Type: Progress Notes Filed: 07/04/2024 16:27 Note Text: [facility]CP[facility]03-19-2025 History of Present illness Narrative* Ignacio Guy MD - 07/04/2024 4:27 PM EDT 1 documented in this encounterAdena Regional Medical Center02-22-2025 NoteHNO ID: [id number] Author: IGNACIO GUY MD Service: ? Author [...] Cycle Day: 13 Last menstrual period: 05/28/2024 [place] Protocol: UNIVERSAL PROTOCOL / SAFETY CHECKLIST Procedure [...] was discussed with the patient or authorized motor vehicle field representative. The patient or authorized motor vehicle field representative has agreed to proceed with the sensitive examination. (Sensitive examination includes inspection and/or palpation of the breasts, pelvis, prostate and anorectal regions) Patient declined wastewater process engineer. Vidhi Sheldon MD IUI IUI Date: [...] Sanders DATE: June 09, 2024 TIME: 12:01 [facility]02-22-2025 Procedure note* Vidhi Sheldon MD - 06/09/2024 [...] Cycle Day: 13 Last menstrual period: 05/28/2024 [place] Protocol: UNIVERSAL PROTOCOL / SAFETY CHECKLIST Procedure [...] was discussed with the patient or authorized motor vehicle field representative. The patient or authorized motor vehicle field representative has agreed to proceed with the sensitive examination. (Sensitive examination includes inspection and/or palpation of the breasts, pelvis, prostate and anorectal regions) Patient declined wastewater process engineer. Vidhi Sheldon MD IUI IUI Date: [...] DATE: June 09, 2024 TIME: 12:01 PM [facility] Work Phone: 1(235) 820-766002-22-2025 Procedure note* Vidhi Sheldon MD - 06/09/2024 [...] Cycle Day: 13 Last menstrual period: 05/28/2024 [place] Protocol: UNIVERSAL PROTOCOL / SAFETY CHECKLIST Procedure [...] was discussed with the patient or authorized motor vehicle field representative. The patient or authorized motor vehicle field representative has agreed to proceed with the sensitive examination. (Sensitive examination includes inspection and/or palpation of the breasts, pelvis, prostate and anorectal regions) Patient declined wastewater process engineer. Vidhi Sheldon MD IUI IUI Date: [...] 2024 TIME: 12:01 PM documented in this encounterAdena [facility]02-22-2025 NoteHNO ID: [id number] Author: NICHELLE GONZALEZ, ? Service: ? Author Type: Ice Plant Operator Type: Progress Notes Filed: 06/09/2024 12:30 Note Text: IUI Cryobio #: [id number] Washed frozen sample Post: 42 m/ml, 74% Insem#: 15.5 millionThe [facility]02-[facility] History of Present illness Narrative* Nichelle Gonzalez - 06/09/2024 11:52 AM EST IUI Cryobio #: [id number] Washed frozen sample Post: 42 m/ml, 74% Insem#: 15.5 million * Nichelle Gonzalez - 06/09/2024 11:24 AM EST IUI specimen released to provider Nichelle Gonzalez June 09, 2024 11:24 AM documented in this encounterAdena [facility] Medical Center02-22-2025 NoteHNO ID: [id number] Author: NICHELLE GONZALEZ, ? Service: ? Author Type: Ice Plant Operator Type: Progress Notes Filed: 06/09/2024 11:48 Note Text: Thaw for IUI Nichelle E PaulyThe [facility]02-22-2025 History of Present illness Narrative* Nichelle Gonzalez - 06/09/2024 11:47 AM EST Thaw for IUI Nichelle Colt Larrykimberly documented in this encounterAdena Regional Medical Center02-22-2025 NoteHNO ID: [id number] Author: NICHELLE GONZALEZ, ? Service: ? Author Type: Ice Plant Operator Type: Progress Notes Filed: 06/09/2024 12:30 Note Text: IUI specimen released to provider Nichelle Gonzalez June 09, 2024 11:24 [facility]01-22-2025 Instructions* Patient Instructions* Melodie Hernandez APRN.ASSOCIATE PROFESSOR OF THEATRE - 05/09/2024 9:08 AM EST Images from [...] - I sent your chart to the lockstitch front maker today. Treatment plan: Natural cycle/IUI x 3 cycles. Please schedule a follow up visit with Dr. Brooks velasco are not after 3 cycles. Sperm Ordering Instructions We need 1 vial per cycle. You will likely need 3-6 vials to establish a . You are welcome to buy more than one and store with the [facility]. Mailing address: Attention: Nichelle Gonzalez [address] [place] [address], [place] [address] Storage at the [facility] is available. Fees are yearly and only start once you are not actively trying. Please ask the financial team ([phone]) for current cost information. Donor Insemination Scheduling Instructions Please call during the first business day of your menstrual cycle to let the lockstitch front maker know you will be testing and doing [...] please call the office [place] [address] Available every day, including weekends and holidays (except [place] and New Years.) Weekday IUI scheduling The day you get your LH surge, please call [phone] between 8:00am - 12:00pm to schedule your insemination for the next day. If you call after 12pm, we may not be able to schedule your appointment. IUI s are done by appointment only. You will make 2 appointments -an arrival time and a procedure time. [place]: [address] [place] [address], [address] [place] [address] Available every day, including weekends and holidays (except [place] and New Years.) Available for IUI using fresh and frozen samples. Check in location for sperm wash and IUI: [address] [facility]. The sperm wash takes 60-90 minutes. Weekend/Holiday [...] want to do another IUI: Call the lockstitch front maker to make sure you are financially cleared. Ask to speak to an SKYLAR to confirm your treatment plan. Important phone number: [phone] documented in this encounterAdena Regional Medical Center01-22-2025 NoteHNO ID: [id number] Author: MELODIE HERNANDEZ APRN.CNP Service: ? Author [...] visit. Either the patient or their legal motor vehicle field representative has been informed of the [...] negative donor is a carrier of: CFTR, [id number] Vial types available: IUI and ART Considerations [...] which included preparing to see the patient, vpcb-kh-miob patient care, completing clinical documentation, obtaining and/or [...] medical team. Standard se (more content not included)...[facility] 05-09-2024 History of Present illness [...] visit. Either the patient or their legal motor vehicle field representative has been informed of the [...] them. No double whammies. Sperm bank/donor #: [email or web address] Blood type: A negative CMV Status: negative Genetic carrier considerations: patient Myriad negative donor is a carrier of: CFTR, [id number] Vial types available: IUI and ART Considerations when using this donor: IUI vial recommended Green light Plan: Donor Sperm episode/checklist updated Pending checklist items: Progesterone blood test, IUI consent, order sperm Confirmed best vial type to order: IUI Melodie Hernandez APRN.ASSOCIATE PROFESSOR OF THEATRE May 09, 2024 8:12 AM I spent a total of 60 minutes on the date of the service which included preparing to see the patient, wahd-mu-rozc patient care, completing clinical documentation, obtaining and/or [...] errors missed in proofreading. documented in this encounterAdena Regional Medical Center01-15-2025 History of Present illness Narrative* Nola Enriquez, PhD - 05/02/2024 2:00 PM EST Psychosocial Consultation for Third Democrat Reproduction Virtual visit with audio and visual equipment POS 10 No SI, Falls, Tobacco use On May 02, 2024, I met virtually with Jaz and Sravan Sanders. They were referred by Melodie Hernandez at [facility] for their required psychosocial consultation regarding third green party reproduction. Relevant History Jaz, 29, and Demetrius, 26, have been together for 8.5 years and for 6.5 years. 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 Demetrius also works at that [employer]. The couple has been trying to conceive [...] Lynda's have already chosen a donor from [facility] in [place]. They chose this donor because heis CMV-, [...] and the lack of anonymity in third green party reproduction. They are very comfortable with [...] the psychosocial issues inherent in this third green party reproductive option. documented in this [facility] Work Phone: 1(109) 362-618111-24-2024 NoteHNO ID: [id number] Author: MELODIE HERNANDEZ APRN.ASSOCIATE PROFESSOR OF THEATRE Service: ? Author Type: Nurse Practitioner Type: [...] visit. Either the patient or their legal motor vehicle field representative has been informed of the [...] Practice cycle Plan: Episode created.Reviewed checklist - CLEARhart message sent Practice cycle: recommended OPKs to test for ovulation and timing of IUIs, patient to call with +OPK, confirm ovulation with progesterone level Follow up once checklist is complete to discuss test results and next steps. Melodie Hernandez APRN.ASSOCIATE PROFESSOR OF THEATRE March 11, 2024 10:42 PM I spent a total of 55 minutes on the date of the service which included preparing to see the patient, blay-ej-hbky patient care, completing clinical documentation, obtaining and/or [...] be grammatical and typographical errors missed in proofreading.[facility]11-24-2024 History of Present illness Narrative* Mleodie Hernandez APRN.ASSOCIATE PROFESSOR OF THEATRE - 03/11/2024 10:42 PM EST Images from [...] visit. Either the patient or their legal motor vehicle field representative has been informed of the [...] Practice cycle Plan: Episode created.Reviewed checklist - Hemoteq message sent Practice cycle: recommended OPKs to [...] which included preparing to see the patient, hxtr-zm-dodr patient care, completing clinical documentation, obtaining and/or [...] errors missed in proofreading. documented in this encounterAdena Regional Medical Center11-22-2024 Instructions* Patient Instructions* Melodie Hernandez [...] question, please call the office. ~Silvia MELY Hernandez.[facility] [phone] Donor Sperm Checklist Donor Sperm Labs Mandatory [...] Sravan must be present Amanda Gillespie MD ([place]) - [phone] Rani Sims (Filomena Hernandez) - [phone] - virtual visit Nola Destin, - virtual [...] to date). Please get scheduled with your fitness coach or pcp if needed. Practice with Ovulation Predictor Kit (OPK) First day of full flow is cycle day #1. Start using on ovulation predictor kit on cycle day 10. Use your OPK once a day, in the morning with your second urine of the day. Send in a Wiser ([employer])hart message when you get a positive OPK. [...] Once your checklist is complete, please call [phone] to get scheduled for a donor sperm follow up appointment. Sperm Bank Website [place] [facility] https://www.cryobank.com/ [facility] https://cryobio.com/ [employer] https://www.cryosinternational.com/ [facility] https://Xactium.TAXI5.pl/ [facility] https://www.Data Sentry Solutions.TAXI5.pl/ [facility] [place] https://www.thespermbankGuangzhou CK1.org/ [facility] https://www.Circuit of The Americas.TAXI5.pl/ [facility] https://www.QRuso.TAXI5.pl/ If you would like to start browsing [...] is needed. Test: CPT Code: Blood type 92494 HIV 43796 CMV IgG 21836 CMV IgM 13946 Syphilis 83582 Hepatitis B Surface Ag 73074 Hepatitis B Core Ab, IgG and IgM 07898 Hepatitis C Ab 42768 Rubella 18587 Varicella 85210 Chlamydia 73226 Gonorrhea 65669 For the above tests, reference the diagnosis code of Z11.9 documented in this encounterAdena Regional Medical Center11-12-2024 Plan of care note* JAMEL [...] for three cycles. They will meet with SOLDERER ASSEMBLY REPAIR to review the IUI checklist and sign consents. I spent a total of 45 minutes on the date of the service which included preparing to see the patient, orbi-eu-zzye patient care, completing clinical documentation, counseling and educating the patient/family/caregiver, and ordering medications, tests, or procedures. Ignacio Guy MD [facility]11-12-2024 Miscellaneous Notes* JAMEL Plan Note [...] for three cycles. They will meet with SOLDERER ASSEMBLY REPAIR to review the IUI checklist and sign consents. I spent a total of 45 minutes on the date of the service which included preparing to see the patient, pbov-dn-tbeq patient care, completing clinical documentation, counseling and educating the patient/family/caregiver, and ordering medications, tests, or procedures. Ignacio Guy MD documented in this encounterAdena Regional Medical Center11-12-2024 Instructions* Patient Instructions* Ignacio Guy MD - 02/28/2024 2:47 PM EST Dear Jaz Sanders Using donor sperm at the [facility] requires some set up (outlined below). Requirements to use donor sperm at the [facility]: Teaching with JAMEL SKYLAR - please call [phone] to schedule a donor sperm teach with [...] to help with the donor selection process. [employer] Carrier Screen is the test ordered. Processing time takes 2-3 weeks. If your insurance doesn't cover it, the self-pay de oliveira is ~$250. Counselor You and your partner/spouse (if applicable) must see a counselor for a donor sperm assessment. Amanda Gillespie MD ([place]) - [phone] Rani Sims ([place]) - [phone] Doris Lama ([place]) - [phone] Consent form - must be signed by [...] Required Tests Test: CPT Code: Blood type 39920 HIV 32157 CMV IgG 60603 CMV IgM 24844 Syphilis 37937 Hepatitis B Surface Ag 77325 Hepatitis B Core Ab, IgG and IgM 18383 Hepatitis C Ab 36045 Rubella 55255 Varicella 99246 Chlamydia 53300 Gonorrhea 28876 For the above tests, reference the diagnosis code of Z31.49. [employer] Foresight Carrier Screen - [employer] will check coverage for you. For this [...] your test results into consideration. Sperm Bank [employer] [place] [facility] ([place]) [facility] Sperm Bank [facility] [employer] ([facility] [place]) [facility] *Do not order any sperm until your checklist is complete. We will review ordering instructions at your follow up visit. Next Steps: Call insurance to verify coverage for donor sperm panel. Schedule donor sperm teach with my nurse practitioner, Silvia Hernandez. Ignacio Guy MD [phone] documented in this encounterAdena Regional Medical Center11-12-2024 NoteHNO ID: [id number] Author: IGNACIO GUY MD Service: ? 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 They will meet with SOLDERER ASSEMBLY REPAIR to review the IUI checklist and sign consents. I spent a total of 45 minutes on the date of the service which included preparing to see the patient, blfy-gg-hzia patient care, completing clinical documentation, counseling and educating the patient/family/caregiver, and ordering medications, tests, or procedures. 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 They will meet with SOLDERER ASSEMBLY REPAIR to review the IUI checklist and sign consents. I spent a total of 45 minutes on the date of the service which included preparing to see the patient, ngpa-ce-zdon patient care, completing clinical documentation, counseling and educating the patient/family/caregiver, and ordering medications, tests, or procedures. Ignacio Guy MD documented in this encounterAdena Regional Medical Center11-11-2024 Evaluation note* Diagnosis Onset Date Resolution Status Admit Date Degenerative superior labral anterior-to -posterior (SLAP) tear of right matthias acuteNovember 2023 2:25pmLaxity of ligamentacuteNovember 2023 2:25pm Multidirectional instability of glenohumeral jointacuteNovember 2023 2:25pmOther instability, right shoulderacuteNovember 2023 2:25pmRight carpal tunnel syndromeacuteNovember 2023 2:25pmStatus post arthroscopy of right shoulderacuteNovember 2023 2:25pmStatus post surgerynoneactive February 27, 2024 2:25pmDegenerative superior labral oelunwav-hn-fojepurfl (SLAP) tear of right shoacuteJanuary 2024 2:29pmLaxity of ligamentacute April 23, 2024 2:29pmMultidirectional instability of glenohumeral jointacute April 23, 2024 2:29pmOther instability, right shoulderacuteJanuary 2024 2:29pmRight carpal tunnel syndromeacuteJanuary 2024 2:29pmStatus post arthroscopy of right shoulderacuteJanuary 2024 2:29pm [facility] Work Phone: 1(647) 168-730011-11-2024 Evaluation note* Diagnosis Onset Date Resolution Status Admit Date Degenerative superior labral anterior-to -posterior (SLAP) tear of right matthias acuteNovember 2023 2:25pmLaxity of ligamentacuteNovember 2023 2:25pm Multidirectional instability of glenohumeral jointacuteNovember 2023 2:25pmOther instability, right shoulderacuteNovember 2023 2:25pmRight carpal tunnel syndromeacuteNovember 2023 2:25pmStatus post arthroscopy of right shoulderacuteNovember 2023 2:25pmStatus post surgerynoneactive February 27, 2024 2:25pmDegenerative superior labral liqkxjbc-yq-wqgposuhb (SLAP) tear of right shoacuteJanuary 2024 2:29pmLaxity of ligamentacute April 23, 2024 2:29pmMultidirectional instability of glenohumeral jointacute April 23, 2024 2:29pmOther instability, right shoulderacuteJanuary 2024 2:29pmRight carpal tunnel syndromeacuteJanuary 2024 2:29pmStatus post arthroscopy of right shoulderacuteJanuary 2024 2:29pmAcute urticariaacute April 26, 2024 8:29amHypothyroidacuteJanuary 2024 8:29amOther chronic painacuteJanuary 2024 8:29am [facility] Work Phone: 1(719) 609-964811-04-2024 History of Present illness Narrative* Marsha Asif [...] nursing note reviewed. Exam conducted with a wastewater process engineer present. Vitals: Estimated body mass index [...] TRENT Engle documented in this encounterMercy Hospital JoplinJdltmvqawm82-98-3511 Note [id number]#1.00[facility]09-[facility] Evaluation note* Diagnosis Onset Date Resolution Status Admit Date Degenerative superior labral anterior-to -posterior (SLAP) tear of right matthias acuteSeptember 2023 10:11amLaxity of ligamentacuteSeptember 2023 10:11amMultidirectional instability of glenohumeral jointacuteSeptember 2023 10:11amOther instability, right shoulderacuteSeptember 2023 10:11am Right carpal tunnel syndromeacuteSeptember 2023 10:11amStatus post arthroscopy of right shoulderacuteSeptember 2023 10:11amStatus post surgery noneactiveSeptember 2023 10:11amDegenerative superior labral bowqptaa-bv-kwnovnheh (SLAP) tear of right shoacuteOctober 2023 11:58am Laxity of ligamentacuteOctober 2023 11:58amMultidirectional instability of glenohumeral jointacuteOctober 2023 11:58amOther instability, right shoulderacuteOctober 2023 11:58amRight carpal tunnel syndromeacuteOctober 2023 11:58amStatus post arthroscopy of right shoulderacuteOctober 2023 11:58amStatus post surgerynoneactiveOctober 2023 11:58amDegenerative superior labral eiokqtwe-lb-lpxistsvh (SLAP) tear of right shoacuteNovember 2023 2:25pmLaxity of ligamentacuteNovember 2023 2:25pm Multidirectional instability of glenohumeral jointacuteNovember 2023 2:25pmOther instability, right shoulderacuteNovember 2023 2:25pmRight carpal tunnel syndromeacuteNovember 2023 2:25pmStatus post arthroscopy of right shoulderacuteNovember 2023 2:25pmStatus post surgerynoneactive November 2023 2:25pm [facility] Work Phone: 1(626) 425-461907-17-2024 NoteEducation Materials Orthopedics Musculoskeletal Pain Musculoskeletal pain [...] mouth or applied to the skin. Take qroo-kit-ilruswl and prescription medicines only as told by [...] provider. Document Revised: 08/07/2020 Document Reviewed: 07/16/2020 [employer] Patient Education ? 2022 [employer].[facility] Bethes[facility] North [id number] Evaluation note* Encounter Date Diagnosis Assessment Notes Treatment Notes Treatment Clinical Notes Apr, Intertrigo (ICD-10 - L30.4) [employer] Other 01-30-2024 Evaluation note* Encounter Date Diagnosis [...] pain of right shoulder (ICD-10 - M25.511) [employer] Other 01-05-2024 Evaluation note* Encounter Date Diagnosis Assessment Notes Treatment Notes Treatment Clinical Notes Apr, Other iron deficiency anemia (IC D-10 - D50.8) [employer] Other 12-28-2023 Evaluation note* Encounter Date Diagnosis Assessment Notes Treatment Notes Treatment Clinical Notes Mar, Vitamin D deficiency (ICD-10 - E 55.9) [employer] Other 10-23-2023 Evaluation note* Encounter Date Diagnosis [...] agreement for this and referral was given. [employer] Other 09-21-2023 Evaluation note* Encounter Date Diagnosis Assessment Notes Treatment Notes Treatment Clinical Notes Dec, Other iron deficiency anemia (IC D-10 - D50.8) Dec,Low folic acid (ICD-10 - E53.8) [employer] Other 09-11-2023 Evaluation note* Encounter Date Diagnosis [...] andcontinue to do the exercises for strength. [employer] Other 07-06-2023 Evaluation note* Encounter Date Diagnosis Assessment Notes Treatment Notes Treatment Clinical Notes Oct, Iron deficiency (ICD-10 - E61.1) [employer] Other 06-26-2023 Evaluation note* Encounter Date Diagnosis [...] symptoms and causing pain down the arm. [employer] [facility] Other 06-15-2023 Evaluation note* Encounter Date Diagnosis [...] verbalizes understanding and agrees c tx plan. [employer] Other 05-10-2023 Evaluation note* Encounter Date Diagnosis [...] follow-up if no improvement. She verbalizes understnading. [employer] Other 05-05-2023 Evaluation note* Encounter Date Diagnosis Assessment Notes Treatment Notes Treatment Clinical Notes August, Acquired hypothyroidism (ICD-10 - E03.9) Discussed with pt symptoms and lab resutls. Discussed treatment and evaluation. Referral placed to Dr. Sinclair. August,Hashimoto's disease (ICD-10 - E06.3) [place] [employer] Other 02-24-2023 Progress note Author Farhad [facility] June 11, 2022 1:16pmNote Date/TimeFebruary 2022 1:07pm[place] [address] Hospitalist Progress Note Signed Patient: Jaz Sanders MR#: [id number] : 1995 Acct:[id number] Age/Sex: 27 / F Adm Date: 3 Loc: 4N Room: 9Y1374-2 Type: ADM IN Attending Dr: Farhad Gallego [...] days. Patient has an appointment with her GIFTED PROGRAM TEACHER next week. Educated her to go to ED if she continues to have heavy bleeding with symptoms, she verbalized understanding. We will send patient home on iron supplements and docusate as needed for constipation Patient is being discharged today. Documented By: Farhad Gallego MD 06/11/22 1306 Signed By: <Electronically signed by Farhad Gallego MD> 06/11/22 1316 [facility] Work Phone: 1(435) 645-327602-23-2023 History and physical note Author Farhad Gallego [facility] June 10, 2022 6:28pmNote Date/TimeFebruary 2022 5:39pmCor[place] [address] Hospitalist H&P Signed Patient: Jaz Sanders MR#: [id number] : 1995 Acct:[id number] Age/Sex: 27 / F Adm Date: 3 Loc: Room: [address] [place] [address] Type: ADM INOo Attending Dr: Farhad Gallego MD Copies to: MD Amanda Correa, RESEARCH METHODOLOGIST, ASSOCIATE PROFESSOR OF THEATRE~ HPI DATE OF EXAMINATION: 06/10/22 CHIEF COMPLAINT: [...] % (Auto) 41.3 % (.) 06/10/22 14:51 [place] % (Auto) 6.8 % (.) 06/10/22 14:51 Eos % (Auto) 5.0 % (.) 06/10/22 14:51 Baso % (Auto) 1.8 % (.) 06/10/22 14:51 Nucleat RBC Rel Count 0.1 /100 WBC (0-0.5) 06/10/22 14:51 Neut # (Auto) 2.4 x10E3/uL (1.8-7.7) 06/10/22 14:51 Lymph # (Auto) 2.2 x10E3/uL (1.00-4.8) 06/10/22 14:51 [place] # (Auto) 0.4 x10E3/uL (0.0-0.8) 06/10/22 14:51 [...] pH 5.5 (5.0-9.0) 06/10/22 15:40 Ur Specific [place] 1.010 (1.001-1.030) 06/10/22 15:40 Urine Protein Negative [...] code Documented By: Farhad Gallego MD 06/10/22 8382 Signed By: <Electronically signed by Farhad Gallego MD> 06/10/[address] [facility] Work Phone: 1(109) 439-261801-04-2023 Evaluation note* Encounter Date Diagnosis Assessment Notes [...] for bleeding. Keep appointment with Dr. Elder. [employer] [facility] Other 12-13-2022 Evaluation note* Encounter Date Diagnosis Assessment Notes Treatment Notes Treatment Clinical Notes Mar, Arthritis of shoulder (ICD-10 - M19.019) [employer] Other 12-06-2022 Evaluation note* Encounter Date Diagnosis [...] she had offered her treatement for this. [employer] Other 11-30-2022 Evaluation note* Encounter Date Diagnosis Assessment Notes Treatment Notes Treatment Clinical Notes Feb, Gastroesophageal ref lux disease without esophagitis (ICD-10 - K21.9) [employer] Other 10-24-2022 Evaluation note* Encounter Date Diagnosis [...] to trial the ointment. Follow-up as needed. [employer] Other 05-11-2022 NoteEchocardiology Procedure Exam Date/Time Accession # Ordering Echo Transthoracic 08/25/2021 15:36 EDT [id number] Jay DAVEY, Samir Rivera CPT code 69465 Reason for Exam (Echo Transthoracic Complete) Bradycardia;Other [...] Mariam Salazar MD Transcribed by: kerry Technologist: [facility]04-21-2022 Note Echocardiology Procedure Exam Date/Time Accession # Ordering ECG Stress Exercise 08/06/2021 10:22 EDT [id number] Jay DAVEY, Samir Rivera CPT code 14446 Reason for Exam (ECG Stress Exercise) bradycardia;Other [...] Mariam Salazar MD Transcribed by: marixa Technologist: [facility]03-31-2022 Evaluation note* Encounter Date Diagnosis [...] school on two different occasions.Order faxed to [facility]. Jun,Gastroesophageal reflux disease without esophagitis (ICD-10 - [...] a [employer]. Jun,Former smoker (ICD-10 - Z87.891) [facility] [employer] Other Evaluation + Plan note Future Appointments Appointment Date:08/06/2021 09:30:00 AM Scheduled Provider: [facility] App[facility] Type:CV Stress (FT) Appointment Date:08/06/2021 11:00:00 AM Scheduled Provider: [facility] App[facility] Type:CV Holter/Event (FT) Future Scheduled Tests Radiology* Echo Transthoracic Complete 07/24/21 * [facility] Appointment Date:08/11/2021 10:30:00 AM Scheduled Provider:Samir Thompson MD Location[facility] Appointment Type:[facility] ([facility] Future Appointments Appointment Date:09/01/2021 02:30:00 PM Scheduled Provider:Samir Thompson MD Location[facility] [place] [facility] Appointment Type:[facility] Future Appointments Appointment Date:2022 11:15:00 AM Scheduled Provider:Samir Thompson MD [facility] App[facility] Type[facility] noteNo InformationNort[facility] [employer] Other Evaluation noteNo assessment information available [facility] Work Phone: Evaluation note* Diagnosis Onset Date Resolution Status Anemia acuteAnxiety and depressionacuteBipolar disorderacuteIron deficiency anemiaacute [facility] Work Phone: evaluation note* Diagnosis Onset Date Resolution Status Abdominal pain acuteChillsacuteConstipationacuteFeveracuteH/O gastric sleeveacuteVomitingacute [facility] Work Phone: Evaluation note* Diagnosis Onset Date Resolution Status [id number] acuteLaxity of ligamentacuteMultidirectional instability of glenohumeral joint acuteNumbness of right handacuteOther instability, right shoulderacute [facility] Work Phone: Evaluation note* Diagnosis Onset Date Resolution Status [id number]-[id number] acuteLaxity of ligamentacuteMultidirectional instability of glenohumeral joint acuteNumbness of right handacuteOther instability, right shoulderacute HYC-VRLG-[id number] of ligamentacuteMultidirectional instability of glenohumeral jointacuteNumbness of right handacuteOther instability, right shoulderacuteRight carpal tunnel syndromeacute [facility] Work Phone: Evaluation note* Diagnosis Onset Date Resolution Status [id number]-[id number] acuteLaxity of ligamentacuteMultidirectional instability of glenohumeral joint acuteNumbness of right handacuteOther instability, right shoulderacute KDS-EKOT-[id number] of ligamentacuteMultidirectional instability of glenohumeral jointacuteNumbness of right handacuteOther instability, right shoulderacuteRight carpal tunnel zyasengrvzebvITO-PWVB-[id number] of ligamentacuteMultidirectional instability of glenohumeral jointacuteOther instability, right shoulderacuteRight carpal tunnel syndromeacute [facility] Work Phone: Evaluation note* Diagnosis Onset Date Resolution Status AIN-[id number] acuteLaxity of ligamentacuteMultidirectional instability of glenohumeral joint acuteNumbness of right handacuteOther instability, right shoulderacute RQG-FIGO-[id number] of ligamentacuteMultidirectional instability of glenohumeral jointacuteNumbness of right handacuteOther instability, right shoulderacuteRight carpal tunnel kpxsbewahuoejQER-WDPY-[id number] of ligamentacuteMultidirectional instability of glenohumeral jointacuteOther instability, right shoulderacuteRight carpal tunnel syndromeacute WVW-AMWQ-[id number] of ligamentacuteMultidirectional instability of glenohumeral jointacuteOther instability, right shoulderacuteRight carpal tunnel syndromeacuteStatus post arthroscopy of right shoulderacute [facility] Work Phone: Evaluation note* Diagnosis Onset Date Resolution Status [id number]-[id number] acuteLaxity of ligamentacuteMultidirectional instability of glenohumeral joint acuteNumbness of right handacuteOther instability, right shoulderacuteRight carpal tunnel zvdlmwpftagdmCYY-ASTM-[id number] of ligamentacute Multidirectional instability of glenohumeral jointacuteOther instability, right shoulderacuteRight carpal tunnel sqdruwjsdwudxTVX-CGAA-[id number] of ligamentacuteMultidirectional instability of glenohumeral jointacuteOther instability, right shoulderacuteRight carpal tunnel syndromeacuteStatus post arthroscopy of right shoulderacuteStatus post surgerynoneactive ZEX-XSEP-[id number] of ligamentacuteMultidirectional instability of glenohumeral jointacuteOther instability, right shoulderacuteRight carpal tunnel syndromeacuteStatus post arthroscopy of right shoulderacuteStatus post surgery noneactive [facility] Work Phone: Evaluation note* Diagnosis Well woman exam with routine gynecological exam Routine gynecological examination [facility] 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 [facility] Diagnosis Reproductive mgmt, 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 Special screening examination for infectious diseases Screening examination for unspecified infectious disease Encounter for other genetic testing of female for procreative management documented [facility]* Diagnosis Bipolar 1 disorder (Multi)- Primary Infertility counseling documented in this encounter [facility] Work Phone: Evaluation note* Diagnosis Treatment plan provided- Primary [facility] Diagnosis Reproductive mgmt, 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 [facility]* Diagnosis Procreative management- Primary Unspecified procreative management [facility]* Diagnosis Female infertility- Primary Female infertility of unspecified origin [facility] Fertility testing- Primary Female infertility Female infertility of unspecified origin [facility] Diagnosis Encounter for fertility planning [Z31.89]- Primary Other specified procreative management [facility]* Diagnosis Encounter for artificial insemination- Primary Artificial insemination [facility]* Diagnosis 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)- Primary [facility]* Diagnosis 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)- Primary [facility]* Diagnosis Abnormal thyroid function test- Primary Nonspecific abnormal results of thyroid function study 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 Vitamin D deficiency documented in this encounter [facility]* Diagnosis 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) [facility]* Diagnosis Early stage of (HCC) state, incidental [facility]* Diagnosis Amenorrhea Absence of menstruation 9 weeks gestation of Missed menses , unspecified gestational age Encounter for supervision of normal first in first trimester documented in this encounter [facility]* Diagnosis 13 weeks gestation of ([facility]) Second trimester ([facility]) state, incidental Thyroid disease Unspecified disorder of thyroid H/O gastric sleeve H/O iron deficiency anemia resulting from in vitro fertilization in first trimester ([facility]) documented in this encounter [facility]* Diagnosis Well woman exam with routine gynecological exam Routine gynecological examination Exposure to STD Second trimester ([facility]) state, incidental 18 weeks gestation of ([facility]) Need for maternal serum alpha-protein (MSAFP) screening ([facility]) Screening, , for anatomic survey ([facility]) Encounter for anatomic survey Thyroid disease Unspecified disorder of thyroid documented in this encounter [facility]* Diagnosis Previous gastric bypass affecting , antepartum- Primary Hypothyroidism affecting in second trimester 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 ([facility]) Obesity affecting in second [...] for diabetes mellitus documented in this encounter [facility]* Diagnosis Previous gastric bypass affecting , antepartum- Primary Hypothyroidism affecting in second trimester 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 (CMS-HCC) Obesity affecting in second trimester, unspecified obesity type [facility] Diagnosis 26 weeks gestation of ([facility]-H[facility]) Second trimester (HHS-HCC) state, incidental TSH (thyroid-stimulating hormone deficiency) Other specified acquired hypothyroidism documented in this encounter [facility]* Diagnosis Third trimester (HHS-HCC) state, incidental 29 weeks gestation of (HHS-HCC) documented in this encounter [facility]* Diagnosis Hypothyroidism affecting in second trimester- Primary headache in second trimester Previous gastric bypass affecting , antepartum 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 (CMS-HCC) [facility] Diagnosis Third trimester (HHS-HCC) state, incidental 31 weeks gestation of ([facility]) TSH (thyroid-stimulating hormone deficiency) Other specified acquired hypothyroidism H/O gastric sleeve documented [facility] this encounter [facility] Narrative - Reported* Type Description Date Surgical History cholecystectomy 2014 Surgical History gastric sleeve 2020 [employer] Other History general Narrative - Reported* Type Description Date Medical History Hypothyroidism Medical HistoryMNGMedical HistoryenuresisMedical Historyextreme obesityMedical HistoryGERD with esophagitisMedical HistoryheadacheMedical HistoryGoiter, nontoxic, multinodularMedical HistoryVitamin D deficiencySurgical History lborsivljannmke6831Vegixisb Othsxzbxtylgakohgtvxva5943Bxxjadlo Historygastric erjehn5183Wwkzmgnsfyegtnw HistoryAnemia05/2022 [employer] Other Hospital course Narrative No data available for this section [facility] Discharge instructions No data available for this section [facility] Discharge instructions Additional Instructions POSTOPERATIVE INSTRUCTIONS FOR SHOULDER LABRAL REPAIR Romeo Snatana DO Orthopedic Surgeon [facility] GENERAL INSTRUCTIONS: Use ice packs to [...] office immediately. Romeo Santana DO Orthopedic Surgeon [facility] Office: [address] [place], [place] [address] Office number: [phone] [facility] Work Phone: Hospital Discharge instructionsAmbulatory Orders* Referral to Allergy/Immunology Time Frame: 04/26/24, Location: None Selected [facility] Work Phone: Hospital Discharge instructions Additional Instructions We evaluated you for your vaginal bleeding in . Your ultrasound was normal, the baby has a good heart rate, measuring at 13 weeks and 1 day. Your cervix was closed. Follow-up closely with your GIFTED PROGRAM TEACHER. Return to the emergency department if you develop any worsening or concerning symptoms.[facility] Work Phone: InstructionsNot on filedocumented in this encounter [facility] SystemInstructionsNot on filedocumented in this encounter [facility] SystemInstructions* Attachments The following attachments cannot be sent through Care Everywhere. * Preeclampsia (Vietnamese) documented in this encounterProSpine Pain Management SystemInstructionsNot on file documented in this encounterProMedima [facility] SystemInstructionsNot on file documented in this encounterProLutheran HospitalQuepasa SystemReason for referral (narrative)No reason for referral information availableAcmc Healthcare System Work Phone: Reason for visit Narrative* Consult, Test, Treat (Routine) - ClosedSpecialtyDiagnoses / ProceduresReferred By ContactReferred To ContactREPRODUCTIVE ENDOCRINOLOGY & FERTILITY Diagnoses Encounter for procreative management, unspecified Encounter for other procreative management Procedures ARTIFIC INSEMINATION INTRAUTERIN THAWING CRYOPRESERVED SPERM/SEMEN EACH ALIQUOT Daniel Hanna APRN.ASSOCIATE PROFESSOR OF THEATRE [address] [place] [address] Phone: tel: fax: Reproductive Endocrinology Infertility [address] [place] [address] Phone: tel: Referral IDStatusReasonStart DateExpiration DateVisits RequestedVisits [id number] Financial Clearance Required - Self Pay Patient Cleared - True Self-Pay required payment collected Do Not Bill Insurance - SP patient [facility] for visit Narrative* Diagnostic Procedure Only (Routine) - AuthorizedSpecialtyDiagnoses / ProceduresReferred By ContactReferred To ContactST. [facility] Diagnoses Fertility testing Procedures PELVIC US WHI US PELVIC NONOBSTETRIC REAL-TIME IMAGE COMPLETE Ignacio Guy MD [address] [place] [address] Phone: tel: fax: Formerly Named [facility] [address] [place] [address] Referral IDStatusReasonStart DateExpiration DateVisits RequestedVisits [id number] Auto-Generated Referral Patient Cleared - True Self-Pay required payment collected Do Not Bill Insurance - SP patient / [facility] for visit Narrative* Consult, Test, Treat (Routine) - ClosedSpecialtyDiagnoses / ProceduresReferred By ContactReferred To Contact REPRODUCT[facility] ENDOCRINOLOGY [facility] FERTILITY Diagnoses Encounter for procreative management, unspecified Encounter for other procreative management Procedures THAWING CRYOPRESERVED SPERM/SEMEN EACH ALIQUOT ARTIFIC INSEMINATION INTRAUTERIN Daniel Hanna APRN.ASSOCIATE PROFESSOR OF THEATRE [address] [place] [address] Phone: tel: fax: Reproductive Endocrinology Infertility [address] [place] [address] Phone: tel: Referral IDStatusReasonStart DateExpiration DateVisits RequestedVisits [id number] Patient Cleared - True Self-Pay required payment collected Do Not Bill Insurance - SP patient / [facility] for visit Narrative* Financial Clearance (Routine) - ClosedSpecialtyDiagnoses / ProceduresReferred By ContactReferred To Contact FINANCE Diagnoses Collect for IUI-D washed sample Procedures THAWING CRYOPRESERVED SPERM/SEMEN EACH ALIQUOT ARTIFIC INSEMINATION INTRAUTERIN FINANCIAL CLEARANCE PHONE CALL Self Financial Clearance Phone Screening [place] [address] Referral IDStatusReasonStart DateExpiration DateVisits RequestedVisits [id number] Financial Clearance Required - Self Pay Patient Cleared - True Self-Pay required payment collected Do Not Bill Insurance - SP patient / [facility] for visit Narrative* Diagnostic Procedure Only (Routine) - ClosedSpecialtyDiagnoses / ProceduresReferred By ContactReferred To Contact [facility] Diagnoses 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) Procedures OBSTETRIC ULTRASOUND WHI US PREG UTERUS AFTER 1ST TRIMEST GESTATION Melodie Hernandez APRN.ASSOCIATE PROFESSOR OF THEATRE [address] [place] [address] Phone: tel: fax: [place] [address] Referral IDStatusReasonStart DateExpiration DateVisits RequestedVisits [id number] Auto-Generated Referral / [facility] for visit Narrative* Diagnostic Procedure Only (Routine) - ClosedSpecialtyDiagnoses / ProceduresReferred By ContactReferred To Contact [facility] Diagnoses Early stage of (HCC) Procedures OBSTETRIC ULTRASOUND WHI US PREG UTERUS AFTER 1ST TRIMEST GESTATION Melodie Hernandez APRN.ASSOCIATE PROFESSOR OF THEATRE [address] [place] [address] Phone: tel: fax: [place] [address] Referral IDStatusReasonStart DateExpiration DateVisits RequestedVisits [id number] Auto-Generated Referral / [facility] Advance Directives TypeDate RecordedPatient RepresentativeExplanationACP-Advance [...] drive you home after your procedure. Your pile driver operator barge mounted must be 18 years of age or [...] questions, call the Pre-Admission Testing Unit at [phone]. Day of Surgery/Procedure As a patient at [facility] you can expect quality medical and nursing care that is centered on your individual needs. Our goal is to make your surgical experience as comfortableas possible . Directions to the Surgery Center [facility] is located at [address] [place] [address]. Please pull into the Emergency parking lot and stop at the echo technician dotson. We offer free echo technician service for all our surgery patients, if you choose not to have echo technician parking we have additional parking across the street.You will enter the facility following the [facility] sign. Please stop at the reception interviewer desk where you will be checked in by the staff. If you have any questions please call [phone]. Transportation after your procedure. You will need a friend or family member to drive you home after your procedure. Your pile driver operator barge mounted must be18 years of age or older [...] may shave your face or neck. ? Corinne your teeth but do not swallow water. [...] or the day of surgery, please call [phone], or [phone] documented in this encounter* Instructions* Mukesh Montez, [...] 48 hours call the anesthesia department at [phone]. Will you need pain medication? The nerve [...] block please phone the Anesthesiology Department at [phone]. If the phone does not get answered please contact the hospital timber treating tank operator at [phone] to page the director long term care anesthesiologist Discharge Instructions for Bariatric Surgery You had a Laparoscopic Sleeve Gastrectomy (26427) surgery to treat obesity. Recovery from this [...] scheduled appointment, please call the office at [phone]. Call Your Doctor If Any of the [...] AM EST CLINICAL PHARMACY NOTE: MEDS TO [facility] Patient?: No Total # of Prescriptions Filled: 3 The following medications were delivered to the patient: Oxycodone-acetaminophen 5/325 mg tab Cyclobenzaprine 10 mg tab Enoxaparin 60mg /0.6 ml syr Total # of Interventions Completed: 1 Time Spent (min): 60 Additional Documentation:called trimming caser about the high co-pay on the enoxaparin [...] practice deep breathing 8. Discharge planning * Rtiu Wells RCP - 05/06/2020 9:07 PM EST [...] SHOULDER DI SCUSS SURGERY Reason for Visit [id number] Laxity of ligament Multidirectional instability of glenohumeral joint Numbness of right hand Other instability, right shoulder Chief Complaint OP SP RT SHOULDER DI SCUSS SURGERY R20.0Reason for XvpotPGW-EGIJ-[id number] Laxity of ligament Multidirectional instability of glenohumeral joint Numbness of right hand Other instability, right shoulder Chief Complaint OP SP RT SHOULDER DI SCUSS SURGERY R20.0 EMG RESULTSReason for MeqzbJPC-VYFW-[id number] Laxity of ligament Multidirectional instability of glenohumeral joint Numbness of right hand Other instability, right shoulder PMN-LQLJ-[id number] Laxity of ligament Multidirectional instability of glenohumeral joint Numbness of right hand Other instability, right shoulder Right carpal tunnel syndrome Chief Complaint OP SP RT SHOULDER DI SCUSS SURGERY R20.0 EMG RESULTS Shoulder painReason for YgiteRAP-LPPW-[id number] Laxity of ligament Multidirectional instability of glenohumeral joint Numbness of right hand Other instability, right shoulder VDW-FOCJ-[id number] Laxity of ligament Multidirectional instability of glenohumeral joint Numbness of right hand Other instability, right shoulder Right carpal tunnel syndrome Chief Complaint OP SP RT SHOULDER DI SCUSS SURGERY R20.0 EMG RESULTS Shoulder pain H & P RIGHT SHOULDER ARTHROSCOPY 50-37-52Azjimh for JdfyiLGU-URRV-[id number] Laxity of ligament Multidirectional instability of glenohumeral joint Numbness of right hand Other instability, right shoulder CBJ-YQFL-[id number] Laxity of ligament Multidirectional instability of glenohumeral joint Numbness of right hand Other instability, right shoulder Right carpal tunnel syndrome LFX-LOQP-[id number] Laxity of ligament Multidirectional instability of glenohumeral joint Other instability, right shoulder Right carpal tunnel syndrome Chief Complaint OP SP RT SHOULDER DI SCUSS SURGERY R20.0 EMG RESULTS Shoulder pain H & P RIGHT SHOULDER ARTHROSCOPY 12-07-23 Shoulder pain Shoulder painReason for RrsorSIO-NYMR-[id number] Laxity of ligament Multidirectional instability of glenohumeral joint Numbness of right hand Other instability, right shoulder BFX-ZCDH-[id number] Laxity of ligament Multidirectional instability of glenohumeral joint Numbness of right hand Other instability, right shoulder Right carpal tunnel syndrome OLG-ZOOU-[id number] Laxity of ligament Multidirectional instability of glenohumeral joint Other instability, right shoulder Right carpal tunnel syndrome Chief Complaint OP SP RT SHOULDER DI SCUSS SURGERY R20.0 EMG RESULTS Shoulder pain H & P RIGHT SHOULDER ARTHROSCOPY 12-07-23 Shoulder pain Shoulder pain 10-14 DAYS POST OPReason for [id number] Laxity of ligament Multidirectional instability of glenohumeral joint Numbness of right hand Other instability, right shoulder [id number] Laxity of ligament Multidirectional instability of glenohumeral joint Numbness of right hand Other instability, right shoulder Right carpal tunnel syndrome [id number] Laxity of ligament Multidirectional instability of glenohumeral joint Other instability, right shoulder Right carpal tunnel syndrome [id number] Laxity of ligament Multidirectional instability of glenohumeral joint Other instability, right shoulder Right carpal tunnel syndrome Status post arthroscopy of right shoulder Chief Complaint R20.0 EMG RESULTS Shoulder pain H & P RIGHT SHOULDER ARTHROSCOPY 12-07-23 Shoulder pain Shoulder pain 10-14 DAYS POST OP R20.0 4 WEEKSReason for [id number] Laxity of ligament Multidirectional instability of glenohumeral joint Numbness of right hand Other instability, right shoulder Right carpal tunnel syndrome [id number] Laxity of ligament Multidirectional instability of glenohumeral joint Other instability, right shoulder Right carpal tunnel syndrome [id number] Laxity of ligament Multidirectional instability of glenohumeral joint Other instability, right shoulder Right carpal tunnel syndrome Status post arthroscopy of right shoulder Status post surgery [id number] Laxity of ligament Multidirectional instability of glenohumeral [...] for Visit Admit Date 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 December 20, 2023 10:11am Laxity of ligament December 20, 2023 10:11am Multidirectional instability of glenohum eral joint December 20, 2023 10:11am Other instability, right shoulder Septem 2023 10:11am Right carpal tunnel syndrome December 192023 10:11am Status post arthroscopy of right shoulde r December 20, 2023 10:11am Status post surgery December 20, 2023 10:11am Degenerative superior labral mjgalbrt-wn-pizsuqmwm (SLAP) tear of right matthias January 17, 2024 11:58am Laxity of ligament January 17, 2024 11 :58am Multidirectional instability of glenohum eral joint January 17, 2024 11:58am Other instability, right shoulder Octobe 2023 11:58am Right carpal tunnel syndrome January 11:58am Status post arthroscopy of right shoulde r January 17, 2024 11:58am Status post surgery January 17, 2024 11 :58am Degenerative superior labral ujjbibwn-xa-xylopktpk (SLAP) tear of right matthias February 27, [...] for Visit Admit Date Degenerative superior labral wdcycqud-mj-iuyrznuiv (SLAP) tear of right matthias February 27, 2024 2:25pm Laxity of ligament February 27, 2024 2:25pm Multidirectional instability of glenohum eral joint February 27, 2024 2:25pm Other instability, right shoulder Novemb er 2023 2:25pm Right carpal tunnel syndrome February 262023 2:25pm Status post arthroscopy of right shoulde r February 27, 2024 2:25pm Status post surgery February 27, 2024 2:25pm Degenerative superior labral fhofvytc-jb-pjkealfwu (SLAP) tear of right matthias April 23, [...] for Visit Admit Date Degenerative superior labral jocqgblr-ty-bchiqbokf (SLAP) tear of right matthias February 27, 2024 2:25pm Laxity of ligament February 27, 2024 2:25pm Multidirectional instability of glenohum eral joint February 27, 2024 2:25pm Other instability, right shoulder Novemb er 2023 2:25pm Right carpal tunnel syndrome February 262023 2:25pm Status post arthroscopy of right shoulde r February 27, 2024 2:25pm Status post surgery February 27, 2024 2:25pm Degenerative superior labral iuwyqfbx-fg-qakunfynh (SLAP) tear of right matthias April 23, [...] therapy exercises and steroid injection, MRI at [facility], Dr. 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 Rashard Olivera, [address] [place] [address] [facility] ReasonCommentsGynecologic ExamReasonCommentsInfertilitySpecialtyDiagnoses / ProceduresReferred By ContactReferred To ContactREPRODUCTIVE ENDOCRINOLOGY & FERTILITY Diagnoses Female infertility, unspecified Procedures VV OFFICE/OP CONSLTJ NEW/EST PT MOD MDM 40 MINUTES Pcp, Ana Rosa, RESEARCH METHODOLOGIST [facility] [address] [address] [place] [address] Referral IDStatusReasonStart DateExpiration DateVisits RequestedVisits [id number] Financial Clearance Required - Self Pay Patient Cleared - True Self-Pay required payment collected Do Not Bill Insurance - SP patient Financial Clearance Not Required [id number] sperm teachSpecialtyDiagnoses / ProceduresReferred By ContactReferred To ContactREPRODUCTIVE ENDOCRINOLOGY & FERTILITY Diagnoses Infertility counseling Procedures OFFICE/OUTPATIENT ESTABLISHED MOD MDM 30 MIN Melodie Hernandez, MELY.[facility] [address] [facility] [address] [place] [id number] [facility] [place] [address] [place] [address] Referral IDStatusReasonStart DateExpiration DateVisits RequestedVisits [id number] Financial Clearance Required - Self Pay Patient Cleared - True Self-Pay required payment collected Do Not Bill Insurance - SP patient /[id number] / ProceduresReferred By ContactReferred To ContactREPRODUCTIVE ENDOCRINOLOGY & FERTILITY Diagnoses Encounter for fertility testing Procedures OFFICE/OUTPATIENT ESTABLISHED LOW MDM 20 MIN [facility] [address] [place] [address] [facility] [address] [place] [address] Referral IDStatusReasonStart DateExpiration DateVisits RequestedVisits [id number] Financial Clearance Required - Self Pay Patient Cleared - True Self-Pay required payment collected Do Not Bill Insurance - SP patient [id number] PlanningReasonCommentsre iui this wknd/has cervical polyp questionReasonCommentsPatient [...] section and content) DATE CREATED AUTHOR 05/08/2020 [facility] DATE CREATED AUTHOR 'S ORGANIZ ATION 03/31/2021 [facility] DATE CREATED AUTHOR AUTHOR'S ORGANIZ ATION 09/04/2021 [facility] DATE CREATED AUTHOR AUTHOR'S ORGANIZ ATION 04/19/2024 [facility] DATE CREATED AUTHOR AUTHOR'S ORGANIZ ATION 05/05/2024 [facility] DATE CREATED AUTHOR AUTHOR'S ORGANIZ ATION 09/12/2024 [facility] DATE CREATED AUTHOR AUTHOR'S ORGANIZ ATION 10/05/2024 [facility] DATE CREATED AUTHOR AUTHOR'S ORGANIZ ATION 12/07/2024 [facility] DATE CREATED AUTHOR AUTHOR'S ORGANIZ ATION 12/07/2024 [facility] DATE CREATED AUTHOR AUTHOR'S ORGANIZ ATION 02/08/2025 [facility] DATE CREATED AUTHOR AUTHOR'S ORGANIZ ATION 02/21/2025 [facility] EPIC Care Teams (unrecognized sec tion and content) Team Status: Inactive Member Role Status Dates Mariam Appiah MD Primary Care Provider Active Amanda Ford APRN SOLDERER ASSEMBLY REPAIR-CAttenrocky ProviderActive Team Status: Inactive Member Role Status Dates Amanda Ford APRN SOLDERER ASSEMBLY REPAIR-C Primary Care Provider Active Dariel Howell ProviderActive Team Status: Inactive Member Role Status Dates Amanda Ford APRN SOLDERER ASSEMBLY REPAIR-C Primary Care Provider Active Michelle Zhang ProviderActive Team Status: Active Member Role Status Dates Amanda Ford APRN SOLDERER ASSEMBLY REPAIR-C Primary Care Provider Active Team Status: Inactive Member Role Status Dates Amanda Ford APRN SOLDERER ASSEMBLY REPAIR-C Primary Care Provider, Attending Provider Active Team Status: Active Member Role Status Dates Amanda Ford APRN SOLDERER ASSEMBLY REPAIR-C Primary Care Provider Active Dariel Howell ProviderActiveFarhad Gallego , MDAdmit Provider, Attending ProviderActive Team Status: Inactive Member Role Status Dates Amanda Ford APRN SOLDERER ASSEMBLY REPAIR-C Primary Care Provider Active Dariel Howell ProviderActiveAnoDasilvaLashonda , MDAdmit Provider, Attending ProviderActive Team Status: Inactive Member Role Status Dates Amanda Ford APRN SOLDERER ASSEMBLY REPAIR-C Primary Care Provider Active Silva Greco ProviderActive Team Status: Inactive Member Role Status Dates Provider Conversion Attending Provider Active St art: May 17, 2023 End: May 17, 2023 Team Status: Inactive Member Role Status Dates Amanda Ford APRN SOLDERER ASSEMBLY REPAIR-C Primary Care Provider, Attending Provider Active Start: June 08, 2023 End: June 08, 2023 Team Status: Active Member Role Status Dates Amanda Ford APRN SOLDERER ASSEMBLY REPAIR-C Primary Care Provider, Attending Provider Active Start: September 15, 2023 Team Status: Inactive Member Role Status Dates Amanda Ford APRN SOLDERER ASSEMBLY REPAIR-C Primary Care Provider Active Start: October 13, 2023 End: October 13, 2023Romeo Santana DOAttending ProviderActiveStart: October 13, 2023 End: October 13, 2023 Team Status: Inactive Member Role Status Dates Amanda Ford APRN SOLDERER ASSEMBLY REPAIR-C Primary Care Provider Active Start: October 26, 2023 End: October 26, 2023Romeo Santana DOAttending ProviderActiveStart: October 26, 2023 End: October 26, 2023 Team Status: Inactive Member Role Status Dates Amanda Ford APRN SOLDERER ASSEMBLY REPAIR-C Primary Care Provider Active Start: November 01, 2023 End: November 01, 2023Romeo Santana DOAttending ProviderActiveStart: November 01, 2023 End: November 01, 2023 Team Status: Inactive Member Role Status Dates Amanda Ford APRN SOLDERER ASSEMBLY REPAIR-C Primary Care Provider Active Start: November 28, 2023 End: November 28, 2023Romeo Santana DOAttending ProviderActiveStart: November 28, 2023 End: November 28, 2023 Team Status: Inactive Member Role Status Dates Amanda Ford APRN SOLDERER ASSEMBLY REPAIR-C Primary Care Provider Active Start: December 01, 2023 End: December 01, 2023Romeo Santana DOAttending ProviderActiveStart: December 01, 2023 End: December 01, 2023 Team Status: Inactive Member Role Status Dates Amanda Ford APRN SOLDERER ASSEMBLY REPAIR-C Primary Care Provider Active Start: December 07, 2023 End: December 07, 2023Romeo Santana DOAttending ProviderActiveStart: December 07, 2023 End: December 07, 2023 Team Status: Active Member Role Status Dates Amanda Ford APRN SOLDERER ASSEMBLY REPAIR-C Primary Care Provider Active Start: December 07, 2023 Romeo Santana DOAttending Provider, Other ProviderActiveStart: December 07, 2023 Team Status: Inactive Member Role Status Dates Amanda Ford APRN SOLDERER ASSEMBLY REPAIR-C Primary Care Provider Active Start: December 192023 End: December 20, 2023Romeo Santana DOAttending ProviderActiveStart: December 20, 2023 End: December 20, 2023 Team Status: Active Member Role Status Dates Amanda Ford APRN SOLDERER ASSEMBLY REPAIR-C Primary Care Provider Active Start: December 182023 Romeo Santana , DOOther ProviderActiveStart: January 10, 2024 Daniel Hampton MDAttending ProviderActiveStart: January 10, 2024 Team Status: Inactive Member Role Status Dates Amanda Ford APRN SOLDERER ASSEMBLY REPAIR-C Primary Care Provider Active Start: January 17, 2024 End: January 17, 2024Romeo Santana DOAttending ProviderActiveStart: January 17, 2024 End: January 17, 2024Team MemberRelationshipSpecialtyStart DateEnd Date Amanda Ford NP [address] [place] [address] [facility]01/17/23Team MemberRelationshipSpecialtyStart DateEnd Date Amanda Ford NP [address] [place] [address] [facility]01/17/23 Team Status: Inactive Member Role Status Dates Amanda Ford APRN SOLDERER ASSEMBLY REPAIR-C Primary Care Provider Active Start: February 262023 End: February 27, 2024Romeo Santana DOAttending ProviderActiveStart: February 27, 2024 End: February 27, 2024Team MemberRelationshipSpecialtyStart DateEnd Date Amanda Ford NP PCP - [facility]01/17/23 Team Status: Active Member Role Status Dates Amanda Ford APRN SOLDERER ASSEMBLY REPAIR-C Primary Care Provider Active Start: February Kenny Gallegos ProviderActiveStart: February 20, 2024 Team Status: Inactive Member Role Status Dates Amanda Ford APRN SOLDERER ASSEMBLY REPAIR-C Primary Care Provider Active Start: April 23, 2024 End: April 23, 2024Kenny Gary ProviderActiveStart: April 23, 2024 End: April 23, 2024 Team Status: Inactive Member Role Status Dates Amanda Ford APRN SOLDERER ASSEMBLY REPAIR-C Primary Care Provider, Attending Provider Active Start: April 26, 2024 End: April 26, 2024Team MemberRelationshipSpecialtyStart DateEnd Date Amanda Ford NP [address] [place] [address] [facility] Wftbycpv05/2/23Team MemberRelationshipSpecialtyStart DateEnd Date Amanda Ford NP [address] [place] [address] [facility] - [facility] Nkuukiqz78/2/23Team MemberRelationshipSpecialtyStart DateEnd Date Amanda Ford NP [address] [place] [address] [facility] - [facility] Isvnzcmr04/2/23Team MemberRelationshipSpecialtyStart DateEnd Date Amanda Ford NP [address] [place] [address] [facility] Ehimcuee95/2/23 Team Status: Inactive Member Role Status Dates Amanda Ford APRN SOLDERER ASSEMBLY REPAIR-C Primary Care Provider Active Start: October 18, 2024 End: October 18lexjerri Arriaza , DOEmergency ProviderActiveStart: October 18, 2024 End: October 18, 2024Team MemberRelationshipSpecialtyStart DateEnd Date Amanda Ford NP [address] [place] [address] PCP - GeneralFamily Qbthzzen80/2/23Team MemberRelationshipSpecialtyStart DateEnd Date No Pcp, [place] [address] PCP - GeneralFamily Medicine05/20/20Team MemberRelationshipSpecialtyStart DateEnd Date No Pcp, [place] [address] PCP - GeneralFamily Medicine05/20/20Team MemberRelationshipSpecialtyStart DateEnd Date Amanda Ford NP [address] [place] [address] PCP - GeneralFamily Sovsmbkg25/2/23Team MemberRelationshipSpecialtyStart DateEnd Date Amanda Ford NP [address] [place] [address] PCP - GeneralFamily Iromiyxl76/2/23Team MemberRelationshipSpecialtyStart DateEnd Date Amanda Ford NP [address] [place] [address] PCP - GeneralFamily Dyonujru68/2/23 Team Status: Active Member Role Status Dates Amanda Ford APRN SOLDERER ASSEMBLY REPAIR-C Primary Care Provider Active Start: November 17, 2024 Chris Dickerson , DOAttending ProviderActiveStart: November 17, 2024 Team Status: Active Member Role Status Dates Amanda Ford APRN SOLDERER ASSEMBLY REPAIR-C Primary Care Provider Active Start: November 20, 2024 Les Juan , DOAttending ProviderActiveStart: November 20, 2024 Team Status: Active Member Role Status Dates Amanda Ford APRN SOLDERER ASSEMBLY REPAIR-C Primary Care Provider Active Start: November 30, [...] Member Role Status Dates Amanda Ford APRN SOLDERER ASSEMBLY REPAIR-C Primary Care Provider Active Start: December 02, 2024 End: December 03, 2024Eduardo Cruz , DOAttending ProviderActiveStart: December 02, 2024 End: December 03, 2024Team MemberRelationshipSpecialtyStart DateEnd Date No Pcp, [place] [address] PCP - GeneralFamily Medicine05/20/20Team MemberRelationshipSpecialtyStart DateEnd Date No Pcp, [place] [address] PCP - GeneralFamily Medicine05/20/20Team MemberRelationshipSpecialtyStart DateEnd Date Amanda Ford NP [address] [place] [address] PCP - GeneralFamily Lkxhtmja02/2/23Team MemberRelationshipSpecialtyStart DateEnd Date No Pcp, [place] [address] PCP - GeneralFamily Medicine05/20/20Team MemberRelationshipSpecialtyStart DateEnd Date No Pcp, [place] [address] PCP - GeneralFamily Medicine05/20/20Team MemberRelationshipSpecialtyStart DateEnd Date Amanda Ford NP [address] [place] [address] PCP - GeneralFamily Ekfuhaty48/2/23Team MemberRelationshipSpecialtyStart DateEnd Date Amanda Ford NP [address] [place] [address] [place] [address] PCP - GeneralFamily Zppilahn28/2/23Team MemberRelationshipSpecialtyStart DateEnd Date Amanda Ford NP [address] [place] [place] [address] PCP - Generalmily Lkpwqyxz75/2/23Team MemberRelationshipSpecialtyStart DateEnd Date MerylsarahAmanda de la fuente NP [address] [place] [address] PCP - GeneralFamily Jyzvqzxz42/2/23 Goals (unrecognized section and content) Type Treatment [...] prosecute any alcohol or drug abuse patient.[facility] CenterIn the event this information is protected by the Federal Confidentiality of Alcohol and Drug Abuse Patient Records regulations: The Federal rules restrict any use of the information to criminally investigate or prosecute any alcohol or drug abuse patient.[facility] CenterIn the event this information is protected by the Federal Confidentiality of Alcohol and Drug Abuse Patient Records regulations: The Federal rules restrict any use of the information to criminally investigate or prosecute any alcohol or drug abuse patient.[facility] CenterIn the event this information is protected by the Federal Confidentiality of Alcohol and Drug Abuse Patient Records regulations: The Federal rules restrict any use of the information to criminally investigate or prosecute any alcohol or drug abuse patient.[facility] CenterIn the event this information is protected by the Federal Confidentiality of Alcohol and Drug Abuse Patient Records regulations: The Federal rules restrict any use of the information to criminally investigate or prosecute any alcohol or drug abuse patient.[facility] CenterIn the event this information is protected by the Federal Confidentiality of Alcohol and Drug Abuse Patient Records regulations: The Federal rules restrict any use of the information to criminally investigate or prosecute any alcohol or drug abuse patient.[facility] CenterIn the event this information is protected by the Federal Confidentiality of Alcohol and Drug Abuse Patient Records regulations: The Federal rules restrict any use of the information to criminally investigate or prosecute any alcohol or drug abuse patient.[facility] CenterIn the event this information is protected by the Federal Confidentiality of Alcohol and Drug Abuse Patient Records regulations: The Federal rules restrict any use of the information to criminally investigate or prosecute any alcohol or drug abuse patient.[facility] CenterIn the event this information is protected by the Federal Confidentiality of Alcohol and Drug Abuse Patient Records regulations: The Federal rules restrict any use of the information to criminally investigate or prosecute any alcohol or drug abuse patient.[facility] CenterIn the event this information is protected by the Federal Confidentiality of Alcohol and Drug Abuse Patient Records regulations: The Federal rules restrict any use of the information to criminally investigate or prosecute any alcohol or drug abuse patient.[facility] CenterIn the event this information is protected by the Federal Confidentiality of Alcohol and Drug Abuse Patient Records regulations: The Federal rules restrict any use of the information to criminally investigate or prosecute any alcohol or drug abuse patient.[facility] CenterIn the event this information is protected by the Federal Confidentiality of Alcohol and Drug Abuse Patient Records regulations: The Federal rules restrict any use of the information to criminally investigate or prosecute any alcohol or drug abuse patient.[facility] CenterIn the event this information is protected by the Federal Confidentiality of Alcohol and Drug Abuse Patient Records regulations: The Federal rules restrict any use of the information to criminally investigate or prosecute any alcohol or drug abuse patient.[facility] CenterIn the event this information is protected by the Federal Confidentiality of Alcohol and Drug Abuse Patient Records regulations: The Federal rules restrict any use of the information to criminally investigate or prosecute any alcohol or drug abuse patient.[facility] CenterIn the event this information is protected by the Federal Confidentiality of Alcohol and Drug Abuse Patient Records regulations: The Federal rules restrict any use of the information to criminally investigate or prosecute any alcohol or drug abuse patient.[facility] CenterIn the event this information is protected by the Federal Confidentiality of Alcohol and Drug Abuse Patient Records regulations: The Federal rules restrict any use of the information to criminally investigate or prosecute any alcohol or drug abuse patient.[facility] CenterIn the event this information is protected by the Federal Confidentiality of Alcohol and Drug Abuse Patient Records regulations: The Federal rules restrict any use of the information to criminally investigate or prosecute any alcohol or drug abuse patient.[facility] CenterIn the event this information is protected by the Federal Confidentiality of Alcohol and Drug Abuse Patient Records regulations: The Federal rules restrict any use of the information to criminally investigate or prosecute any alcohol or drug abuse patient.[facility] CenterIn the event this information is protected by the Federal Confidentiality of Alcohol and Drug Abuse Patient Records regulations: The Federal rules restrict any use of the information to criminally investigate or prosecute any alcohol or drug abuse patient.[facility] CenterIn the event this information is protected by the Federal Confidentiality of Alcohol and Drug Abuse Patient Records regulations: The Federal rules restrict any use of the information to criminally investigate or prosecute any alcohol or drug abuse patient.[facility] CenterIn the event this information is protected by the Federal Confidentiality of Alcohol and Drug Abuse Patient Records regulations: The Federal rules restrict any use of the information to criminally investigate or prosecute any alcohol or drug abuse patient.[facility] CenterIn the event this information is protected by the Federal Confidentiality of Alcohol and Drug Abuse Patient Records regulations: The Federal rules restrict any use of the information to criminally investigate or prosecute any alcohol or drug abuse patient.[facility] CenterIn the event this information is protected by the Federal Confidentiality of Alcohol and Drug Abuse Patient Records regulations: The Federal rules restrict any use of the information to criminally investigate or prosecute any alcohol or drug abuse patient.[facility] CenterIn the event this information is protected by the Federal Confidentiality of Alcohol and Drug Abuse Patient Records regulations: The Federal rules restrict any use of the information to criminally investigate or prosecute any alcohol or drug abuse patient.[facility] CenterIn the event this information is protected by the Federal Confidentiality of Alcohol and Drug Abuse Patient Records regulations: The Federal rules restrict any use of the information to criminally investigate or prosecute any alcohol or drug abuse patient.[facility] CenterIn the event this information is protected by the Federal Confidentiality of Alcohol and Drug Abuse Patient Records regulations: The Federal rules restrict any use of the information to criminally investigate or prosecute any alcohol or drug abuse patient.[facility] CenterIn the event this information is protected by the Federal Confidentiality of Alcohol and Drug Abuse Patient Records regulations: The Federal rules restrict any use of the information to criminally investigate or prosecute any alcohol or drug abuse patient.[facility] FOR RECORDS PERTAINING TO PATIENTS [...] BE BASED ON THE PRIMARY CLINICAL RECORDS. [facility] [employer] [facility]. provides no warranty or guarantee of the accuracy or completeness of information in this document.
--- OUTSIDE RECORDS SUMMARY | 2025-03-26 19:00 | XMS_ITS | Encounter Summary ---
Author Organization [facility] Address [address] [place] [address] Care Team Providers Care Licensing Representative Name Role Phone Amanda Ford TERRESTRIAL ECOLOGIST Primary Care Provider Encounter Details DateTypeDepartmentCare Team (Latest Contact Info)Nuiuuyfzerh82/03/2025Travel Social History Tobacco UseTypesPacks/DayYears UsedDateSmoking Tobacco: FormerCigarettes0.53 Quit: 05/24/2024Smokeless Tobacco: NeverAlcohol UseStandard Drinks/WeekComments Not Currently0 (1 standard drink = 0.6 oz pure alcohol)caffeine: 1-2 cups per day teaPHQ-2AnswerDate RecordedPatient Health Questionnaire-2 Xdwva384 Estimated Date of KjwjwidrMxzndqyeDxn00/06/2026ased on Est. Date of ConceptionSex and Gender InformationValueDate RecordedSex Assigned at Bldchv4601/19/2023 8:10 PM EDTLegal SurFutzdc93/02/2023 9:50 PM EDTGender Identity Nlhvqp9001/19/2023 8:10 PM EDTSexual OrientationNot on fileTravel HistoryTravel StartTravel MblBdvkive82/22/640556/documented as of this encounter Plan of Treatment DateTypeDepartmentCare Team (Latest Contact Info)Ysnjnleeunf01/16/2025 10:00 AM ESTRoutine [facility] [address] [place] [address] [place] [address] Les Martinez, DO [address] [facility] [place] [address] [place] [address] 08/21/2025 9:30 AM EDTOffice Visit [facility] [place] [facility] [address] [place] [address] Darleen Sinclair MD [address] [place] [address] documented as of this encounter Goals GoalPatient Goal TypeAssociated ProblemsRecent ProgressPatient-Stated?Author Reminders Care PlanOB RemindersNoOpen Scheduling, Backgrounddocumented as of this encounter Visit Diagnoses Not on filedocumented in this encounter Additional Health Concerns Active ProblemsNoted DateDiagnosed DateOB Fnhuetaok96/07/2025 documented as of this encounter Care Teams Team MemberRelationshipSpecialtyStart DateEnd Date Amanda Ford NP [facility] [facility] [address] PCP - GeneralFamily Kjlbdwah91/2/23documented as of this encounter
--- OUTSIDE RECORDS SUMMARY | 2025-03-26 19:00 | XMS_ITS | Encounter Summary ---
Author Organization [facility] Address [address] [place] [address] Care Team Providers Care Watch Commander Name Role Phone Amanda Hewitt PROPERTY INSURANCE CLAIMS EXAMINER Primary Care Provider Encounter Details DateTypeDepartmentCare Team (Latest Contact Info)Zjohmjrccsu10/04/2025Clinisync Result Encounter [facility] External Department Unsolicited Basim Birmingham, DO [address] [facility] [address] [place], [place] [id number] Social History Tobacco UseTypesPacks/DayYears UsedDateSmoking Tobacco: FormerCigarettes0.53 Quit: 05/24/2024Smokeless Tobacco: NeverAlcohol UseStandard Drinks/WeekComments Not Currently0 (1 standard drink = 0.6 oz pure alcohol)caffeine: 1-2 cups per day teaPHQ-2AnswerDate RecordedPatient Health Questionnaire-2 Fapfg072 Estimated Date of HljbyhysHfmmfopnLma83/06/2026ased on Est. Date of ConceptionSex and Gender InformationValueDate RecordedSex Assigned at Kepflf5801/19/2023 8:10 PM EDTLegal XqvFkwuyo08/02/2023 9:50 PM EDTGender Identity Slbvgi9601/19/2023 8:10 PM EDTSexual OrientationNot on fileTravel HistoryTravel StartTravel DzdFgwsxgz13/22/202511/documented as of this encounter Plan of Treatment DateTypeDepartmentCare Team (Latest Contact Info)Bufqjwnsfdg93/16/2025 10:00 AM ESTRoutine [facility] [address] [facility] [place] [address] Basim Birmingham, DO [address] [facility] [place] [address] 08/21/2025 9:30 AM EDTOffice Visit [facility] [address] [place] [address] Darleen Sinclair MD [address] [place] [address] documented as of this encounter Goals GoalPatient Goal TypeAssociated ProblemsRecent ProgressPatient-Stated?Author Reminders Care PlanOB RemindersNoOpen Scheduling, Backgrounddocumented as of this encounter Procedures Procedure NamePriorityDate/TimeAssociated DiagnosisCommentsUS OB BPP W NON-BBHLVR8403/21/2025 3:52 PM EST documented in this encounter Results * US OB BPP W NON-STRESS (03/21/2025 3:52 PM EST)Anatomical Region LateralityModalityOtherSpecimen (Source)Anatomical Location / Laterality Collection Method / VolumeCollection TimeReceived Time03/21/2025 3:52 PM EST Narrative 03/21/2025 3:54 PM EST [facility] ?[address] ? [place] [address] ? Ultrasound Report ? Signed ? Patient: DEL CIDGUZMAN ANDERSON Colt ?MR#: [id number] ?? : 1995 ?Acct:[id number] ?? Age/Sex: 30 / F ?ADM Date: 03/21/25 ?? Loc: FBCO ? Attending Dr: Basim Birmingham D.O. ? Ordering Physician: Basim [place] D.O. ?? Date of Service: 03/21/25 ?? Procedure(s): US OB BPP w non-stress ?? Accession Number(s): [id number] ? cc: Basim Birmingham D.O.; AMANDA HEWITT ? [facility] ? [address] ? [place] [address] ? Patient Name: ?? GUZMAN DEL CID ? MRN: [facility]:[id number] ? date: 1995 ?Sex: F ?? Assigned Patient Location: FBCO ?? Current Patient Location: ? Accession/Order Number: [id number] ?? Exam Date: 03/21/2025 ??15:00 ?Report Date: 03/21/2025 ??15:52 ? At the request of: ?? BASIM ??JUAN ??DO ? Procedure: ??US OB BPP w non-stress ? Biophysical profile. ? Reason for exam: Thyroid deficiency decreased movement ? COMPARISON: 03/18/2025 ? TECHNIQUE: Transabdominal imaging of the gravid uterus was obtained. ? FINDINGS: The fabricator foam rubber reports a BPP of 8 out of 8. ??STARR is normal at 14.4 ?? cm. ?? heart rate 136 bpm. ? US/US OB BPP w non-stress ?? IMPRESSION: BPP 8 out of 8. ? Impression dictated by: Sravan Dickinson Jr., D.ORenae ??03/21/2025 3:52 PM ? Dictation Location: [facility]23 ? Electronically authenticated by: [id number] ??Y ?? Date: 03/21/2025 ??15:52 ? Dictated By: ?Sravan Dickinson M.D. ? Signed By: ?03/21/25 1554 ? DD/ 1552 ? TD/TT: ? Top Hat Body Maker: Procedure Note Radiology, Radiologist, - 03/22/2025 [place] [address] Ultrasound Report Signed Patient: GUZMAN DEL CID EMR#: [id number] : 1995Acct:[id number] Age/Sex: 30 / FADM Date: 03/21/25 Loc: FBCO Attending Dr: Basim Birmingham D.O. Ordering Physician: Basim Birmingham D.O. Date of Service: 03/21/25 Procedure(s): US OB BPP w non-stress Accession Number(s): [id number] cc: Basim Birmingham D.O.; AMANDA HEWITT [facility] [address] [place], [place] [address] Patient Name: GUZMAN DEL CID MRN: [id number] date: 1995 Sex: F Assigned Patient Location: [facility] Current Patient Location: Accession/Order Number: [id number] Exam Date: 03/21/2025 15:00 Report Date: 03/21/2025 15:52 At the request of: BASIM BIRMINGHAM DO Procedure: US OB BPP w non-stress Biophysical profile. Reason for exam: Thyroid deficiency decreased movement COMPARISON: 03/18/2025 TECHNIQUE: Transabdominal imaging of the gravid uterus was obtained. FINDINGS: The fabricator foam rubber reports a BPP of 8 out of 8. STARR is normal at14.4 cm. heart rate 136 bpm. US/US OB BPP w non-stress IMPRESSION: BPP 8 out of 8. Impression dictated by: Sravan Dickinson Jr., D.O. 03/21/2025 3:52 PM Dictation Location: [place] [address] Electronically authenticated by: [id number] Y Date: 5:52 Dictated By: Sravan Dickinson M.D. Signed By:03/21/25 1554 DD/ 51 TD/TT: Top Hat Body Maker: Authorizing ProviderResult TypeResult StatusCorey Juan DOCLINISYNC IMAGINGFinal Result documented in this encounter Visit Diagnoses Not on filedocumented in this encounter Additional Health Concerns Active ProblemsNoted DateDiagnosed DateOB Oukhzhpxk23/07/2025 documented as of this encounter Care Teams Team MemberRelationshipSpecialtyStart DateEnd Date Amanda Hewitt NP [address] [facility] [address] [place] [id number] PCP - GeneralFamily Xdwdxxki24/2/23documented as of this encounter
--- OUTSIDE RECORDS SUMMARY | 2025-03-26 19:00 | XMS_ITS | Clinical Summary ---
Author Organization [facility] Address [address] [place] [address] Care Team Providers Care Primer And Powder Canning Leader Name Role Phone Unavailable Primary Care Provider [...] RecordedNational Score (1-100), lower number is lower idtd539702/28/2024State Score (1-10), lower number is lower xzej23904/29/2023 Data from: https://www.neighborhoodatlas.medicine.[facility]/. Last address used for gtbxascytmq106 self xntcfmyek71/12/2024CommentsYesSex and Gender InformationValueDate RecordedSex Assigned at BirthNot on fileLegal SexFemale 07/13/2023 12:45 PM EDTGender IdentityNot on fileSexual OrientationNot on file Last Filed Vital Signs Vital SignReadingTime TakenCommentsBlood Pressure--Pulse--Temperature-- Respiratory Rate--Oxygen Saturation--Inhaled Oxygen Concentration--Embumv03.3 kg (216 lb 11.4 oz)02/28/2024 2:03 PM TEIBuxgoq229.3 cm (5' 11 )02/28/2024 2:03 PM ESTBody Mass Index30.23104/29/2023 2:03 PM EST Plan of Treatment Health MaintenanceDue DateLast DoneCommentsAnxiety Qopvpgyxa15/17/2013Depression Kcfgjcxcw22/17/2013Hepatitis B Vaccine (1 of 3 - 19+ 3-dose series)2014 Cervical Cancer Ujfhbkcom74/17/2016HPV Vaccine (1 - 3-dose SCDM series) 2022ovid-19 Vaccine ( - 2024- season)2024Influenza Vaccine (#1) 2024DTaP,Tdap,Td Vaccine (2 - Td or Tdap)/12/2022RSV Vaccine (1 - 1-dose 75+ series)2070HIV MaygiyezpFtbkapnxw21/16/2024Hepatitis C ImjkvklqqNxrledvvp21/16/2024 Procedures Procedure NamePriorityDate/TimeAssociated DiagnosisCommentsHIV 1/2 COMBO WITH REFLEX TO QAMYHVCBBMRFACWDcvkmsx15/16/2024 3:21 PM EST Special screening examination for infectious diseases HEPATITIS C ANTIBODY IA WITH HMBBXAUJETHECjymagz12/16/2024 3:21 PM EST Special screening examination for infectious diseases from Last 3 Months or Most Recently Relevant to Health Maintenance Results * HIV 1/2 COMBO WITH REFLEX TO DIFFERENTIATION (04/02/2024 3:21 PM EST)Component ValueRef RangeTest MethodAnalysis TimePerformed AtPathologist SignatureHIV 12 Combo (Ag/Ab)GpceuglelcmHsohgejkgqj55/17/2024 12:27 PM [facility] LABHIV-1/2 AB (Confirmatory)04/03/2024 12:27 PM [facility] LABComment:Test not indicated.HIV Szzawfxflkesje90/17/2024 12:27 PM [facility] LABComment: No evidence of HIV-1 or HIV-2 infection. Should recent infection be suspected, repeat testing may be considered 2-3 weeks after this draw. [place] Rev. Code 3701.243(E): This information has been [...] Hernandez APRN.CNPLABORATORY Final ResultPerforming OrganizationAddressCity/State/ZIP CodePhone Number [facility] [address] [place] [address], * HEPATITIS C ANTIBODY IA WITH CONFIRMATION (04/02/2024 3:21 PM EST)Component ValueRef RangeTest MethodAnalysis TimePerformed AtPathologist SignatureHep C Antibody QBFvdyqjcqKcifpkiu84/17/2024 11:20 AM [facility] LABComment:The result suggests no evidence of active infection with Hepatitis C virus. Should recent infectionbe suspected, repeat testing may be considered 4-6 weeks after this draw.Specimen (Source)Anatomical Location / Laterality Collection Method / VolumeCollection TimeReceived TimeBloodBLOOD SPECIMEN / UnknownVenipuncture / Rvsxegt6304/02/2024 3:21 PM EST04/02/2024 3:22 PM EST Narrative Authorizing ProviderResult TypeResult StatusShelly Hernandez APRN.CNPLABORATORY Final ResultPerforming OrganizationAddressCity/State/ZIP CodePhone Number [facility] [address] [address], from Last 3 Months or Most Recently Relevant to Health Maintenance Insurance
--- OUTSIDE RECORDS SUMMARY | 2025-03-26 19:00 | XMS_ITS | Encounter Summary ---
Author Organization [facility] Address [address] [place] [address] Care Team Providers Care Credit Rating Checker Name Role Phone Amanda Ford BUSINESS DEVELOPER Primary Care Provider Encounter Details DateTypeDepartmentCare Team (Latest Contact Info)Brscdbidlrp74/05/2025Telephone [facility] [address] [place] [address] [place] [address] Kerrie Babcock MA Social History Tobacco UseTypesPacks/DayYears UsedDateSmoking Tobacco: FormerCigarettes0.53 Quit: 05/24/2024Smokeless Tobacco: NeverAlcohol UseStandard Drinks/WeekComments Not Currently0 (1 standard drink = 0.6 oz pure alcohol)caffeine: 1-2 cups per day teaPHQ-2AnswerDate RecordedPatient Health Questionnaire-2 Prleo317 Estimated Date of HfczfkftYdprxwfhWcr40/06/2026ased on Est. Date of ConceptionSex and Gender InformationValueDate RecordedSex Assigned at Rzfeba5301/19/2023 8:10 PM EDTLegal RfgNtyfou41/02/2023 9:50 PM EDTGender Identity Absqbx8201/19/2023 8:10 PM EDTSexual OrientationNot on fileTravel HistoryTravel StartTravel JdmSzifqdh89/22/298563/documented as of this encounter Miscellaneous Notes * [...] Plan of Treatment DateTypeDepartmentCare Team (Latest Contact Info)Ghaciyvzfcv03/16/2025 10:00 AM ESTRoutine [facility] [address] [facility] [place] [address] Les Martinez, [address] [facility] [address] [place], [place] [address] 08/21/2025 9:30 AM EDTOffice Visit [facility] [address] [place] [address] Darleen Sinclair MD [address] [place] [address] documented as of this encounter Goals GoalPatient Goal TypeAssociated ProblemsRecent ProgressPatient-Stated?Author Reminders Care PlanOB RemindersNoOpen Scheduling, Backgrounddocumented as of this encounter Visit Diagnoses Not on filedocumented in this encounter Additional Health Concerns Active ProblemsNoted DateDiagnosed DateOB Jxwkdfhyk10/07/2025 documented as of this encounter Care Teams Team MemberRelationshipSpecialtyStart DateEnd Date Amanda Ford NP [address] [facility] [address] PCP - GeneralFamily Xfvsrqhm91/2/23documented as of this encounter
--- OUTSIDE RECORDS SUMMARY | 2025-03-26 19:00 | XMS_ITS | Encounter Summary ---
Author Organization [facility] Address [address] [place] [address] Care Team Providers Care Log Grader Name Role Phone Amanda Ford TITLE ABSTRACTOR Primary Care Provider Encounter Details DateTypeDepartmentCare Team (Latest Contact Info)Ceqacepcofv04/25/2025Patient Outreach [facility] [address] [place] [phone] Jojo Be, YANDEL [address] [place], [place] [address] Social History Tobacco UseTypesPacks/DayYears UsedDateSmoking Tobacco: FormerCigarettes0.53 Quit: 05/24/2024Smokeless Tobacco: NeverAlcohol UseStandard Drinks/WeekComments Not Currently0 (1 standard drink = 0.6 oz pure alcohol)caffeine: 1-2 cups per day teaPHQ-2AnswerDate RecordedPatient Health Questionnaire-2 Dtgqg049 Estimated Date of XecatpehSrylxbrrArn76/06/2026ased on Est. Date of ConceptionSex and Gender InformationValueDate RecordedSex Assigned at Yxijnl6901/19/2023 8:10 PM EDTLegal CtwRqtiew51/02/2023 9:50 PM EDTGender Identity Swyhsw9401/19/2023 8:10 PM EDTSexual OrientationNot on fileTravel HistoryTravel StartTravel KprGxvosud26/22/202511/2025documented as of this encounter Progress Notes * Jojo Be LPN - 03/12/2025 9:53 AM EST Monthly outreach. Call to pt X2, LVM documented in this encounter Plan of Treatment DateTypeDepartmentCare Team (Latest Contact Info)Shocbgfrkwp78/16/2025 10:00 AM ESTRoutine [facility] [address] [facility] [place] [address] Les Martinez DO [address] [facility] [address] [place] [place], [place] [address] 08/21/2025 9:30 AM EDTOffice Visit [facility] [place] [facility] [address] [place] [address] Darleen Sinclair MD [address] [place] [address] documented as of this encounter Goals GoalPatient Goal TypeAssociated ProblemsRecent ProgressPatient-Stated?Author Reminders Care PlanOB RemindersNoOpen Scheduling, Backgrounddocumented as of this encounter Visit Diagnoses Not on filedocumented in this encounter Additional Health Concerns Active ProblemsNoted DateDiagnosed DateOB Msrilerak32/07/2025 documented as of this encounter Care Teams Team MemberRelationshipSpecialtyStart DateEnd Date Amanda Ford NP [address] [facility] [place] [address] PCP - GeneralFamily Parqnsgk70/2/23documented as of this encounter
--- OUTSIDE RECORDS SUMMARY | 2025-03-26 19:01 | XMS_ITS | Patient Health Record ---
Author Organization [facility] Address [address] [place] [address] Care Team Providers Care Advanced Developer Name Role Phone Tabitha Zamora Primary Care Provider Jennifer Hahn Unavailable [phone] Julieta Jefferson Unavailable [phone] Allergies No Known Allergies Reason For Referral [...] MG Capsule1 capsule with food Orally at nagnflk546- 200 caloriesNot-Taking/PRNlamoTRIgine 200 MG Tablet1 tablet Orally Once a day; Duration: 90 daysActiveLansoprazole 30 MG Capsule Delayed Release1 capsule before a meal Orally Once a dayActiveQUEtiapine Fumarate 25 MG Tablet1 tablet at bedtime Orally Once a day; Duration: 30 daysActiveCyclobenzaprine HCl 10 MG TabletTAKE 1 TABLET BY MOUTH ONCE DAILY AT BEDTIME NEEDED FOR 30 DAYS; Duration: 30Not-Taking/PRNSertraline HCl 25 MG Tablet1 tablet Orally Once a day; Duration: 90 days09/25/2024tiveStrattera 40 MG Capsule1 capsule in the morning [...] a drink containing alcohol in the past year?DeCuokfz2GwmduavjjrzfcgOigoibog Problems Problem Type SNOMED Code ICD Code Onset Dates Problem Status W/U Status Risk Notes Problem 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) ActiveconfirmedProblemAnxiety state (258219913)Anxiety state, unspecified (F41.1)ActiveconfirmedProblemLong-term current use of drug therapy (830677446) High risk medications (not anticoagulants) long-term use (Z79.899)Active confirmedProblemBipolar affective disorder, currently manic, mild (268927391) Bipolar disorder, current episode manic without psychotic features, mild (F31.11)Activeconfirmed Vital Signs Heart Rate 84 /min 10/24/2024 Xgdyxpok68 %10/24/2024lood pressure vatadhdfh56 mm Hg10/24/20249032Rxayxv83 in 10/24/2024lood pressure hgdvykrt258 mm Hg10/24/20244014Hnuejq403.2 lbs10/24/2024MI 30.43 kg/m210/24/2024 Encounters Encounter Location Date Provider Diagnosis [facility] [address] [place] [address] 05/10/2024 Julieta Jefferson Bipolar disorder, current episode manic without psychotic features, mild F31.11 and Anxiety state, unspecified F41.1 [facility] [address] [place] [address] 05/24/2024 Julieta Jefferson Bipolar disorder, current episode manic without psychotic features, mild F31.11 [facility] [address] [place] [address] 01/07/2025 Julieta Jefferson Bipolar disorder, current episode manic without psychotic features, mild F31.11 [facility] [address] [place] [address] 03/05/2025 Tabitha Sera Bipolar disorder, current episode manic without psychotic features, mild F31.11 [facility] [address] [facility] [place] [address] 04/25/2024 Julieta Jefferson Bipolar disorder, current episode manic without psychotic features, mild F31.11 and Anxiety state, unspecified F41.1 [facility] [address] [facility] [place] [address] 08/24/2024 Jennifer Hahn Bipolar disorder, current episode manic without psychotic features, mild F31.11 and Anxiety state, unspecified F41.1 [facility] [address] [place] [address] 09/25/2024 Jennifer Hahn Bipolar disorder, current episode manic without psychotic features, mild F31.11 [facility] [address] [place] [address] 10/24/2024 Jennifer Hahn Bipolar disorder, current episode [...] manic without psychotic features, mild (ICD-10 - F31.11)05/24/2024 Bipolar disorder, current episode manic without psychotic features, mild (ICD-10 - F31.11)08/24/2024nxiety state, unspecified (ICD-10 - F41.1)04/25/2024nxiety state, unspecified (ICD-10 - F41.1)04/25/2024ipolar disorder, current episode manic without psychotic features, mild (ICD-10 - F31.11) cont [place] [facility] [place] . . Informed consent obtained: YES, [...] Insured Coverage Start Date Coverage End Date [facility] [address] [place] [address] [id number] Aysha DEL CID - patient is the acueqwc7905/19/2022 [facility] [address] [place] [id number], HEATHERSelf - patient is the hfdqeqr3905/19/2022[facility] SYSTEMPO [address] [place] [id number], HEATHERSelf - patient is the /zBH [employer]-termed 05/18/22[address] [place] [id number], HEATHERSelf - patient is the solrvwx96/[facility] MEDICAID [facility] after [employer]- termed 05/18/22[address] [place] [phone] Aysha DEL CID - patient is the [id number] Medical (General) History Medical History History ICD Code obesity bipolarhypothyroidSurgical History Surgery Date(Month/Year) cholecystectomy gastric UAZIHV65/2021
--- OUTSIDE RECORDS SUMMARY | 2025-03-26 19:01 | XMS_ITS | Clinical Summary ---
Author Organization [facility] Address [address] [place] [address] Care Team Providers Care Nurse Licensed Practical Name Role Phone Amanda Ford MAMMAL KEEPER Primary Care Provider Allergies Active AllergyReactionsCriticalityNoted QhzsBmnrfxhnCzkrrpJmiapwoKspk58/02/2023 Patient had gastric bypass surgery in April [...] g 6Active Active Problems ProblemNoted DateDiagnosed DateThyroid auukiqk9303/06/2025H/O gastric sleeve 3 weeks gestation of ([facility])03/06/2025Third trimester ([facility])03/06/20255713Xmejgqmznds01/12/2024Estimated Date of FlqspqwhAeaaulyeQyl71/06/2026ased on Est. Date of Conception Encounters DateTypeDepartmentCare EqmfLkxtlnsnagq56/09/2025 1:50 [place] [phone] Jojo Ames PA 36 weeks gestation of ([facility]); Third trimester ([facility]); H/O gastric sleeve; Thyroid oxsqpuq7003/26/2025amboo flowsheet [facility] [address] [place] [phone] Jojo Ames PA 03/25/2025linisync Result Encounter NOM[facility] External Department Unsolicited Basim Martinez, DO 03/22/2025linisync Result Encounter NOMS External Department Unsolicited Basim Martinez, DO 03/22/2025[place] [address] Kerrie Babcock MA 03/21/2025linisync Result Encounter NOMS External Department Unsolicited Basim Martinez, DO 03/20/20254707Eshkxx59/03/2025[place] [address] Kerrie Babcock MA 03/19/2025 11:00 AM ESTRoutine [facility] [address] [place] [address] Basim Martinez, DO 35 weeks gestation of ([facility]); Third trimester ([facility]); H/O gastric sleeve; Thyroid disease; Sore throat; Upper respiratory tract infection, unspecified type03/19/2025amboo flowsheet [facility] [address] [place] [address] Basim Martinez, 5Clinisync Result Encounter NOMS External Department Unsolicited Basim Martinez, DO 03/12/2025Patient Outreach [facility] [address] [place] [address] Jojo Be LPN 03/12/20257373Regceu60/18/2025 2:20 PM ESTRoutine [facility] [place] [facility] [address] [place] [address] Jojo Ames PA Third trimester ([facility]); 33 weeks gestation of ([facility]); Thyroid disease; H/O gastric hvibsw5203/05/2025Telephone [facility] [place] [facility] [address] [place] [address] Marsha Asif MA 03/05/2025External Result Encounter [facility] [address] [place] [address] Basim Martinez, 03/05/20254146Tzqxsf89/18/2025amboo flowsheet [facility] [address] [place] [address] Jojo Ames PA 2025linisync Result Encounter NOM[facility] External Department Unsolicited Basim Martinez, DO 03/04/20253461Qfptgh97/11/2025linisync Result Encounter NOMS External Department Unsolicited Juan Basim, DO 02/19/2025 1:00 PM ESTRoutine [facility] [address] [place] [address] Basim Martinez, DO Third trimester ([facility]); 31 weeks gestation of ([facility]); TSH (thyroid-stimulating hormone deficiency); H/O gastric wdvxbl6202/19/2025linisync Result Encounter [facility]OM[facility] External Department Unsolicited JuanBasim martin, DO 02/19/2025amboo flowsheet [facility] [address] [place] [address] Basim Martinez, DO 02/12/2025bstract [facility] [address] [place] [address] Jojo Be LPN 02/12/20259869Qmkijt17/24/2025Patient Outreach [facility] [address] [place] [address] Jojo Be LPN 02/08/2025bstract [facility] [address] [place] [address] Kerrie Babcock MA 02/07/2025bstract [facility] [place] [facility] [address] [place] [address] Basim Martinez, 02/06/2025 2:30 PM EDTRoutine [facility] [place] [address] Jojo Ames, PA Third trimester ([facility]); 29 weeks gestation of ([facility])02/06/2025amboo flowsheet [facility] [address] [place] [address] Jojo Ames PA 01/31/2025bstract [facility] [address] [place] [address] Basim Martinez, DO 01/30/2025 2:30 PM EDTAncillary Procedure [facility] [address] [address] TSH (thyroid-stimulating hormone deficiency)01/30/20256045Gvhegt08/06/2025Telephone [facility] [place] [facility] [address] [place] [address] Marsha Asif MA 01/16/2025 11:20 AM EDTRoutine [facility] [place] [facility] [address] [place] [address] Mima Duenas, TY 26 weeks gestation of ([facility]); Second trimester ([facility]); TSH (thyroid-stimulating hormone deficiency)01/16/2025amboo flowsheet [facility] [address] [place] [address] Mima Duenas, TY 01/11/2025linisync Result Encounter [facility]OM[facility] External Department Unsolicited Basim Martinez, DO 01/11/2025Telephone [facility] [address] [place] [address] Basim Martinez, DO 01/10/2025Telephone [facility] [place] [facility] [address] [place] [address] Jojo Ames PA 01/09/2025linisync Result Encounter [facility] External Department Unsolicited Jojo Ames PA 01/08/2025Telephone [facility] [address] [place] [address] Jojo Ames PA 09/22/2025Abstract [facility] [address] [place] [address] Basim Martinez DO from Last 3 Months Immunizations ImmunizationAdministration DatesNext WllYvkf8912/25/2022 Family History Medical HistoryRelationNameCommentsDiabetesFatherGreg spearsHypertensionFather Delbert spearsThyroid diseaseFatherGreg spearsObesityMotherMary spearsSkin cancer MotherMary spearsThyroid diseaseMotherMary spearsDiabetesPaternal Grandfather Ayaan FritzRelationNameStatusCommentsFatherGreg spearsAliveMotherMary nunez AlivePaternal GrandfatherLarry FritzSisterAlive Social History Tobacco UseTypesPacks/DayYears UsedDateSmoking Tobacco: FormerCigarettes0.53 Quit: 05/24/2024Smokeless Tobacco: Never Tobacco Cessation:Counseling Given: Not Answered Alcohol UseStandard Drinks/WeekCommentsNot Currently0 (1 standard drink = 0.6 oz pure alcohol)caffeine: 1-2 cups per day teaPHQ-2AnswerDate RecordedPatient Health Questionnaire-2 Hxnbd732Estimated Date of Delivery LcodhzzaDpn18/06/2026ased on Est. Date of ConceptionSex and Gender Information ValueDate RecordedSex Assigned at MtnpzPdmisi65/04/2023 8:10 PM EDTLegal Sex Agbjwq0301/17/2023 9:50 PM EDTGender YnxzvywxJwqync73/04/2023 8:10 PM EDTSexual OrientationNot on fileTravel HistoryTravel StartTravel IduDpzzpjp52/22/2025 03/16/2025 Last Filed Vital Signs Vital SignReadingTime TakenCommentsBlood Jwscgwbr963/8012 1:59 PM EST Kwebj686308/22/2024 10:04 AM EDTTemperature--Respiratory Sifi215608/22/2024 10:04 AM EDTOxygen Ljelddwdeh53%08/22/2024 10:04 AM EDTInhaled Oxygen Concentration-- Gwrkyj460 kg (305 lb)03/26/2025 1:59 PM RVGSjotvk417.3 cm (5' 11 )08/22/2024 10:04 AM EDTBody Mass Index42.54008/22/2024 10:04 AM EDT Plan of Treatment DateTypeDepartmentCare Team (Latest Contact Info)Hukoihkmmxp50/16/2025 10:00 AM ESTRoutine [facility] [address] [place] [address] Basim Martinez DO [address] [place] [address] 08/21/2025 9:30 AM EDTOffice Visit [facility] [place] [facility] [address] [place] [address] Darleen Sinclair MD [address] [place] [address] Health MaintenanceDue DateLast DoneCommentsCOVID-19 Vaccine ( season) /07/2020, 07/22/2020Influenza Vaccine (#1)2024HPV/Cotest /, 10/28/2020, 10/16/2018Cervical Cancer Vgiqejudm59/04/2027 Pap Smear/07/2023, 11/02/2021neumococcal Vaccine: Pediatrics (0 to 5 Years) and At-Risk Patients (6 to 64 Years)Aged OutNo longer eligible based on patient's age to complete this topic Goals GoalPatient Goal TypeAssociated ProblemsRecent ProgressPatient-Stated?Author Reminders Care PlanOB RemindersNoOpen Scheduling, Background Procedures Procedure NamePriorityDate/TimeAssociated DiagnosisCommentsPOCT URINALYSIS WHKYYBTDXizjjto71/09/2025 2:08 PM EST 36 weeks gestation of ([facility]) Third trimester ([facility]) US OB BPP W NON-EPSNTS6303/25/2025 4:30 PM EST [facility] UA (CLEAN/CATCH) MEMBERSHIP ADMINISTRATOR/MICRO IF IND.Dwelpvo7803/22/2025 8:50 PM EST US OB BPP W NON-MVTENK3303/21/2025 3:52 PM EST POCT URINALYSIS TYTDTTSRProylep61/02/2025 11:25 AM EST 35 weeks gestation of ([facility]) Third trimester ([facility]) US OB BPP W NON-ZHMACR3003/18/2025 4:09 PM EST US OB 14+ WEEKS ANATOMY SCAN03/05/2025 3:47 PM EST POCT URINALYSIS WSXDLDRUWgfoyxc91/18/2025 2:41 PM EST 33 weeks gestation of ([facility]) US OB BPP W NON-FJWJYV2603/04/2025 9:40 PM EST US OB BPP W NON-LKXXSM1902/26/2025 8:30 AM EST ALL THYROID STIM WWRFTLFCghlylf32/04/2025 2:18 PM EST POCT URINALYSIS QRMGVZQVQigvxzd30/04/2025 1:26 PM EST Third trimester ([facility]) POCT URINALYSIS RDMRCDXUDgjtsog90/22/2025 2:49 PM EDT 29 weeks gestation of ([facility]) US OB FOLLOW UP TRANSABDOMINAL GZFLTWAQBsdnjlw19/15/2025 3:10 PM EDT TSH (thyroid-stimulating hormone deficiency) POCT URINALYSIS DWEQLIVWFfvrsca90/01/2025 11:40 AM EDT 26 weeks gestation of ([facility]) ALL THYROID STIM BCXKCXXAbmsbul09/26/2025 2:48 PM EDT GLUCOSE 1 ZDJEFicldks84/24/2025 12:00 PM EDT ALL CBC WITH AUTO LANUYrjegny14/24/2025 12:00 PM EDT PAP FKHVTIgdlqvb93/04/2024 12:00 AM ESTTHINPREP TIS PAP REFLEX HPV MRNA E6/E7 (08794)Fpstlvk0011/03/2021 from Last 3 Months or Most Recently Relevant to Health Maintenance Results * POCT urinalysis dipstick manually resulted (03/26/2025 2:08 PM EST) Only the most recent of6 resultswithin the time period is included. ComponentValueRef [...] Location / LateralityCollection Method / VolumeCollection TimeReceived QzojTqryd40/09/2025 2:08 PM EST Narrative Authorizing ProviderResult TypeResult StatusAmy [facility] UnitOINT OF CARE TEST ENTER/EDIT ORDERABLESFinal Result * US OB BPP W NON-STRESS (03/25/2025 4:30 PM EST) Only the most recent of5 resultswithin the time period is included. Anatomical RegionLateralityModalityOtherSpecimen (Source)Anatomical Location / LateralityCollection Method / VolumeCollection TimeReceived Time03/25/2025 4:30 PM EST Narrative 03/25/2025 4:33 PM EST [facility] ?[address] ? [place] [address] ? Ultrasound Report ? Signed ? Patient: MARIA EUGENIA,GUZMAN E ?MR#: [id number] ?? : 1995 ?Acct:[id number] ?? Age/Sex: 30 / F ?ADM Date: 03/25/25 ?? Loc: US ? Attending Dr: Basim Martinez D.O. ? Ordering Physician: Basim Martinez D.O. ?? Date of Service: 03/25/25 ?? Procedure(s): US OB BPP w non-stress ?? Accession Number(s): [id number] ? cc: Basim Martinez D.O.; AMANDA FORD ? [facility] ? [address] ? [place] [address] ? Patient Name: ?? GUZMAN DEL CID ? MRN: [facility]:[id number] ? date: 1995 ?Sex: F ?? Assigned Patient Location: [facility] ?? Current Patient Location: ? Accession/Order Number: [id number] ?? Exam Date: 03/25/2025 ??14:05 ?Report Date: 03/25/2025 ??16:30 ? At the request of: ?? BASMI ??JUAN ??DO ? Procedure: ??US OB BPP [...] M.D. ??03/25/2025 4:30 PM ? Dictation Location: RADIO-PC-23 ? Electronically authenticated by: [id number] ??Y ?? Date: 03/25/2025 ??16:30 ? Dictated By: ?Zachary Simon M.D. ? Signed By: ?03/25/25 1633 ? DD/ 1630 ? TD/TT: ? Chemical Research Worker: Procedure Note Radiology, Radiologist, - 03/26/2025 [place] [address] Ultrasound Report Signed Patient: GUZMAN DEL CID EMR#: [id number] : 1995Acct:[id number] Age/Sex: 30 / FADM Date: 03/25/25 Loc: US Attending Dr: Basim Martinez D.O. Ordering Physician: Basim Martinez D.O. Date of Service: 03/25/25 Procedure(s): US OB BPP w non-stress Accession Number(s): [id number] cc: Basim Martinez D.O.; AMANDA FORD [place] [id number] Patient Name: GUZMAN DEL CID MRN: [id number] date: 1995 Sex: F Assigned Patient Location: [facility] Current Patient Location: Accession/Order Number: [id number] Exam Date: 03/25/2025 14:05 Report Date: 03/25/2025 [...] BPP w non-stress IMPRESSION: Biophysical profile score: 11/23 Impression dictated by: Zachary Simon M.D. 03/25/2025 4:30 PM Dictation Location: [place] [address] Electronically authenticated by: [id number] Y Date: 6:30 Dictated By: Zachary Simon M.D. Signed By:03/25/25 1633 DD/ 163 TD/TT: Chemical Research Worker: Authorizing ProviderResult TypeResult StatusCorey Juan DOCLINISYNC IMAGINGFinal Result * (ABNORMAL) [facility] UA (CLEAN/CATCH) MEMBERSHIP ADMINISTRATOR/MICRO IF IND. (03/22/2025 8:50 PM EST) ComponentValueRef [...] DOCLINISYNCFinal Result Performing OrganizationAddressCity/State/ZIP CodePhone Number CLINISYNC TB * US OB 14+ weeks anatomy scan (03/05/2025 3:47 PM EST)Anatomical Region LateralityModalityBodyUltrasoundSpecimen (Source)Anatomical Location / LateralityCollection Method / VolumeCollection TimeReceived Time03/05/2025 3:47 PM EST Narrative 03/05/2025 3:47 PM EST THIS EXAM WAS PERFORMED AT [facility] NAME: ??MARIA EUGENIA HINDS : 1995 SEX: F Accession Number: [id number] ORDERING PHYSICIAN: BASIM MARTINEZ REFERRING PHYSICIAN: BASIM MARTINEZ Coding Procedures ? 65208: Ultrasound, uterus, real time with image documentation, follow up,transabdominal ? approach per fetus Indication resulting from assisted reproductive technology- IUI, History of Gastric sleeve, Obesity in . History OB History ? 1. Para 0 ? [id number] Current Cell free DNA ?low risk analysis [...] (oz) ? 11 oz EFW by: ?Hadlock (ALE-MW-QY-FL) Extended Tibia ??54.8 mm 32w 2d 47% Gayle Reeling Operator ? 4.4 mm Head / Face / [...] MVP measures 7.3 cm. Recommendations Please see [facility] recommendations from prior clinical and/or ultrasound report documentation. Subsequent follow up or other follow up as clinically determined by primary OB provider unless otherwise specified by [facility]. Results forwarded to ordering provider so they can follow up with the patient as necessary. Procedure Note Radiology, RadiologistMD - 03/05/2025 THIS EXAM WAS PERFORMED AT [facility] NAME: MARIA EUGENIA HINDS : 1995 SEX: F Accession Number: [id number] ORDERING PHYSICIAN: BASIM MARTINEZ REFERRING PHYSICIAN: BASIM MARTINEZ Coding Procedures 55662: Ultrasound, uterus, real time with image documentation, follow up, transabdominal approach per fetus Indication resulting from assisted reproductive technology- IUI, History of Gastric sleeve, Obesity in . History OB History 1. Para 0 R1Q9I8Z6 Current Cell free DNA low risk analysis [...] lb EFW (oz) 11 oz EFW by: Avery (TKF-NQ-JT-FL) Extended Tibia 54.8 mm 32w 2d 47% Gayle Reeling Operator 4.4 mm Head / Face / Neck [...] MVP measures 7.3 cm. Recommendations Please see M recommendations from prior clinical and/or ultrasoundreport documentation. Subsequent follow up or other follow up as clinically determined byprimary OB provider unless otherwise specified by M. Results forwarded to ordering provider so they can follow up with thepatient as necessary. Authorizing ProviderResult TypeResult StatusCorey Juan [facility] OB US PROCEDURES Final Result * ALL [...] Performing OrganizationAddressCity/State/ZIP CodePhone Number [facility]INISYNC [facility] * US OB follow up transabdominal approach [...] Duenas NPIMG OB US PROCEDURESFinal Result * GLUCOSE 1 HOUR (01/09/2025 12:00 PM EDT)ComponentValueRef RangeTest Method Analysis TimePerformed AtPathologist SignatureGLUCOSE 1 JVGO915<130 mg/dLTBH Specimen (Source)Anatomical Location / LateralityCollection Method / Volume Collection TimeReceived Time01/09/2025 12:00 PM EDT01/09/2025 12:02 PM EDT Narrative CLINISYNC - 01/09/2025 12:55 PM EDT Authorizing ProviderResult TypeResult StatusJojo FINE BLOOD ORDERABLES Final ResultPerforming OrganizationAddressCity/State/ZIP CodePhone Number [facility] * (ABNORMAL) ALL CBC WITH AUTO DIFF (01/09/2025 12:00 PM EDT)ComponentValueRef RangeTest MethodAnalysis TimePerformed AtPathologist SignatureTBH WBC11.8(H) 4.0 - 11.0 10 3/uLTBHTBH RBC4.06(L)4.20 - 5.40 10 6/uLTBHTBH HGB12.012.0 - 16.0 g/dLTBHTBH HCT35.6(L)36.0 - 48.0 %TBHTBH MCV87.781.0 - 99.0 fLTBHTBH MCH 29.626.7 - 34.0 pgTBHTBH MCHC33.729.9 - 35.2 g/dLTBHTBH RDW13.211.0 - 15.0 % TBHTBH XRM249023 - 450 10 3/uLTBHTBH MPV8.7(L)9.5 - 13.5 [...] Kwaku PACLINISYNCFinal Result Performing OrganizationAddressCity/State/ZIP CodePhone Number [facility] * Pap Smear (02/20/2024 12:00 AM EST)Specimen (Source)Anatomical Location / LateralityCollection Method / VolumeCollection TimeReceived TimeSwabCervical swab / Unknown Narrative Authorizing ProviderResult TypeResult StatusCorey Juan DOLAB CYTOLOGY ORDERABLESFinal ResultPerforming OrganizationAddressCity/State/ZIP CodePhone Number EXTERNAL LAB * THINPREP TIS PAP REFLEX HPV MRNA E6/E7 (90212) (11/03/2021)ComponentValueRef RangeTest MethodAnalysis TimePerformed AtPathologist SignatureCLINICAL INFORMATION:None givenNOMS LEGACY EXTERNAL LABLMP:None givenN[facility]S LEGACY EXTERNAL LABPREV. PAP:None givenN[facility] LEGACY EXTERNAL LABPREV. BX:None given [facility] EXTERNAL LABSOURCE:Cervix, EndocervixNOMS LEGACY EXTERNAL LAB STATEMENT OF ADEQUACY:SEE COMMENTNOST. CLARE H[facility] EXTERNAL LABComment: Satisfactory for evaluation. Endocervical/transformation zone component present. INTERPRETATION/RESULT:Negative for intraepithelial lesion or malignancy.[facility] EXTERNAL LABCOMMENT:This Pap test has been evaluated with computer assisted technology.[facility] EXTERNAL LABCYTOTECHNOLOGIST:SEE COMMENTNOST. CLARE HOSPITAL EXTERNAL LABComment: DMK, CT(ASCP) CT screening location: [employer] [facility], [address] [place] [address]. COMMENTSEE COMMENTNOST. CLARE HOSPITAL EXTERNAL LABComment: EXPLANATORY NOTE: The Pap is [...] INCORRECT, PLEASE CONTACT CLIENT SERVICES. PHONE NUMBER: [phone] Specimen (Source)Anatomical Location / LateralityCollection Method / Volume Collection TimeReceived Time11/03/2021 Narrative Authorizing ProviderResult TypeResult StatusMona J Nataprawira DOECW LABSFinal ResultPerforming OrganizationAddressCity/State/ZIP CodePhone Number [facility] EX[facility] LAB from Last 3 Months or Most Recently Relevant to Health Maintenance Additional Health Concerns Active ProblemsNoted DateDiagnosed DateOB Bwbvyflli29/07/2025 Insurance Care Teams Team MemberRelationshipSpecialtyStart DateEnd Date Amanda Ford, TY [address] [facility] [address] PCP - GeneralH[facility] Systemly Quorepal67/2/23
== END 2025-03-26 18:54 | disposition home or self-care (01) ==
LOC: LAB 18:53
PROVIDERS: PCP Nurse Practitioner Family; Visit Provider Physician Assistant
DX: Z34.93 Encounter for supervision of normal pregnancy, unspecified, third trimester (principal); Z3A.36 36 weeks gestation of pregnancy
CPT/HCPCS: 87081

== ENCOUNTER 2025-03-28 13:58 | Outpatient (OUT) | payer MEDICAID, SELFPAY ==
--- OUTSIDE RECORDS SUMMARY | 2025-03-28 14:04 | XMS_ITS | CCD ---
Author Organization [facility] Care Team Providers Care Chair Name Role Phone Mariam Appiah Primary Care [...] [place] Emergency Provider MARYSOL Jett Emergency Provider [phone] MD Lashonda Farhad Admit Provider MD Farhad Gallego Attending Provider [phone] MELY Ford Attending Provider [phone] SHARRON Jefferson Attending Provider [phone] Petr Lay Unavailable Romeo Santana Unavailable MELY Ford Primary Care Provider DO Romeo Santana Attending Provider Daxa Ford NPnifer Primary Care Provider Unavailable Rohrbacher RISK MANAGEMENT INTERN, Amanda Primary Care Provider Romeo Santana DO Attending Provider Rohrbacher IMPORT SPECIALIST, Amanda A Primary Care Provider Unavailable Primary Care Provider Unavailabl e DAVID, MELODIE G Referring Unavailable Unavailable Primary Care Provider Unavailabl e NOLA ENRIQUEZ Attending Unavailable Rohrbacher IMPORT SPECIALIST, Amanda A Primary Care Provider DAVID, MELODIE [...] Attending Unavailable Rohrbacher, Amanda Primary Care Unavailable Daivd, Melodie G Admitting Unavailable Rohrbacher, Amanda Primary Care Unavailable David, Melodie G Attending Unavailable Rohrbacher, Amanda Primary Care Unavailable JUAN, LES R Admitting Unavailable JUAN, LES R Attending Unavailable Rohrbacher RISK MANAGEMENT INTERN, Amanda Primary Care Provider Kassidy Arriaza DO Emergency Provider No Pcp, No Pcp Primary Care Provider Unavailabl e Chris Dickerson DO Attending Provider [phone] Les Martinez DO Attending Provider Elizabeth Tom [...] (20 sources)Non-steroidal anti-inflammatory agentDrug allergyUnkEleanor Slater Hospital [facility] Other (20 sources)Non-steroidal anti-inflammatory agent; Translations: [NSAIDs]Drug [id number] Healthcare (1 source)ALLERGIES NOT ON FILE; Translations: [ALLERGIES NOT ON FILE]Propensity to adverse reactions (disorder)[facility] (6 sources)NSAIDs; Translations: [NSAIDS (NON-STEROIDAL ANTI-INFLAMMATORY DRUG)] Propensity to adverse reactions to idra60-68-1953[facility] (1 source)NSAIDsDrug allergy (disorder)39-06-3212[facility]cnevppmkGal[facility] Medications Current Medications MedicationDrug Class(es)DatesSig (Normalized)Sig (Original)acetaminophen 500 mg oral tablet (20 sources)Start: 93-59-8813bjxm 1 tablet by mouth every eight hours as needed acetaminophen (TYLENOL) 500 mg tablet Take 500 mg by mouth every 8 hours as needed for pain. 12/06/2023 ActiveStart: 70-38-5514nmqq 1 tablet by mouth every six hours as needed for painStart: 11-28-2023 End: 66-28-0335plawkqzdglvcg (Tylenol Extra Strength) Discontinued 1000 MG PO EVERY 8-10 HOURS as needed for pain November 28, 2023 12:00am January 17, 2024 12:03pmacetaminophen 500 mg / diphenhydrAMINE hydrochloride 25 mg oral tablet (4 sources)Histamine-1 Receptor AntagonistStart: 40-29-3727wome 2 tablets by mouth once daily at bedtime for sleepTylenol Extra Strength PM oral tablet 2 tab(s), Oral, Once a day (at bedtime) for sleep, 60 tab(s),Refill(s) 2, [facility], 182, cm, 07/09/19 13:03:00 EDT, Height/Length Measured, 200.7, k g, 07/09/19 13:03:00 EDT, Weight Measured Start Date: 10/04/19 Status: Ordered acetaminophen 325 mg / oxyCODONE hydrochloride 5 mg oral tablet (2 sources)Opioid AgonistStart: 05-07-2020 End: 93-28-0926qsga 1 tablet by mouth every six hours [...] pain 28 tablet 0 05/07/2020 05/14/2020 ActiveStart: 86-42-8361rhaACGEGW-acetaminophen (PERCOCET) 5-325 MG per tablet 1 tablet albuterol 0.833 mg/ml / ipratropium bromide 0.167 mg/ml inhalant solution (1 source)Anticholinergic, beta2-Adrenergic AgonistStart: 02-42-1759enmwuqiqdaf- albuterol (DUONEB) nebulizer solution 1 ampulebenztropine mesylate 1 mg oral tablet (4 sources)Anticholinergic, AntihistamineStart: 26-05-6456osofvpkfhwo 1 mg Tab Refills(s) 0 Start Date: 01/30/20 Status: Orderedcalcium chloride 0.0014 meq/ml / potassium chloride 0.004 meq/ml / sodium chloride 0.103 meq/ml / sodium lactate 0.028 meq/ml injectable solution (2 sources)Start: 05-06-2020 End: 29-82-8186ykvnkxsp ringers infusiondocusate sodium 100 mg oral capsule (20 sources)Start: 04-16-2024 End: 35-78-4291ryfp 1 capsule by mouth twice daily as needed for constipation Docusate Sodium (Stool Softener) 100 mg capsule Active 0 .ROUTE .COMPLEX April 26, 2024 9:52am TAKE 1 CAPSULE BY MOUTH TWICE DAILY NEEDED FOR CONSTIPATION Complies with drug therapyStart: 04-16-2024 End: 54-86-1722sqma 1 capsule by mouth twice daily as needed for constipation Docusate Sodium (Stool Softener) 100 mg capsule Discontinued 0 .ROUTE .COMPLEX April 16, 2024 8:58am April 26, 2024 8:57am TAKE 1 CAPSULE BY MOUTH TWICE DAILY NEEDED FOR CONSTIPATIONStart: 06-17-2022 End: 01-84-1920enaosjph sodium (Colace) 100 MG capsule 1 (one) time each day at the same time 06/17/2022 ActiveStart: 06-11-2022 End: 83-95-5870pyzq 1 capsule by mouth twice daily as [...] prefilled syringe (1 source)Low Molecular Weight HeparinStart: 87-25-9177htkpbqfino (LOVENOX) 60 MG/0.6ML injection Inject 0.6 mLs into the skin 2 times daily 28 Syringe 0 0 05/07/2020 Active2 ml famotidine 10 mg/ml injection (1 source)Histamine-2 Receptor AntagonistStart: 11-12-9947xbljypfbgr (PEPCID) injection 20 mg1 ml heparin sodium, porcine 5000 unt/ml prefilled syringe (2 sources)Unfractionated Heparin, Anti-coagulantStart: 05-06-2020 End: 13-09-5018xhduafb (porcine) injection 5,000 Units1 ml HYDROmorphone hydrochloride 1 mg/ml cartridge (3 sources)Opioid AgonistStart: 03-59-5714BOTFInuruksap (DILAUDID) injection 1 mgStart: 05-06-2020 End: 14-80-1383HWOSRekmzajel (DILAUDID) 1 MG/ML injectionStart: 05-06-2020 End: 22-56-1166AFRKGiytzzakq (DILAUDID) injection 0.5 mghydrOXYzine hydrochloride 50 mg oral tablet (4 sources)AntihistamineStart: 55-37-8934mwga 1-2 tablets by mouth four times dailyhydrOXYzine hydrochloride 50 mg oral tablet See Instructions, 1-2 tab(s) Oral QID, # 60 tab(s), Refills(s) 2, Pharmacy: [id number] Start Date: 10/09/18 Status: OrderedlamoTRIgine 200 mg oral tablet (20 sources)Mood Stabilizer, Anti-epileptic AgentStart: 71-76-7304Vqxdikkmovo Active MG TABLET April 10, 2022 12:00amStart: 65-11-6536bbryiostanh 200 mg Tab 300 mg = 1.5 tab(s), Oral, Daily, # 45 tab(s), Refills(s) 5, Pharmacy: [facility], 182, cm, 12/06/19 12:03:00 EDT, Height/Length Dosing, 200.7, kg, 11/28/19 9:08:00 EDT, Weight Dosing Start Date: 01/30/20 Status: OrderedStart: 10-04-2018 End: 93-58-7064eyhk 1 tablet by mouth once daily at bedtimeLamotrigine 200 mg tablet Discontinued 200 MG PO Daily at bedtime October 08, 2019 12:00am August 01, 2021 2:19pmLaMICtal 200 MG tablet 1.5 tabs Activelevothyroxine sodium 0.05 mg oral tablet (20 sources)l-ThyroxineStart: 02-24-2024 End: 95-41-4345lxae 1 tablet by mouth before mealtimelevothyroxine (Synthroid, Levoxyl) 50 MCG tablet Indications: Nontoxic goiter Take 1 tablet (50 mcg) by mouth in the morning. Take before meals. 90 tablet 3 08/22/2024 08/17/2025 ActiveStart: 10-13-2023 End: 16-62-6961odjo 1 capsule by mouth once daily in the morningLevothyroxine 50 mcg capsule Discontinued 50 MCG PO Every morning October 13, 2023 12:00am April 26, 2024 9:56amStart: 10-08-2019 End: 47-92-6215dski 1 tablet by mouth every other dayLevothyroxine 175 mcg Tablet Discontinued 175 MCG PO every other day October 08, 2019 12:00am July 172021 2:19pm 1 tablet on odd daysStart: 10-08-2019 End: 87-66-0090xatc 1.5 tablets by mouth every other dayLevothyroxine 175 mcg Tablet Discontinued 262 MCG PO every other day October 08, 2019 12:00am July 172021 2:19pm 1.5 tabs every other day on even daysStart: 10-08-2019 End: 83-42-6881cyxs 1.5 tablets by mouth every other dayLevothyroxine Discontinued 262 MCG PO every other day October 08, 2019 12:00am August 01, 2021 2:19pm 1.5 tabs every other day on even daysStart: 47-40-7744amjr 1 tablet by mouth once dailylevothyroxine 175 mcg (0.175 mg) Tab 175 microgram = 1 tab(s), Oral, Daily, # 30 tab(s), Refills(s)0 Start Date: 09/03/18 Status: Ordered lidocaine 0.05 mg/mg medicated patch (20 sources)Antiarrhythmic, Amide Local AnestheticStart: 02-24-2024 End: 46-65-1967xrbct 1 dose transdermal route once dailyLidocaine 5 % adhesive patch,medicated Active 0 .ROUTE .COMPLEX April 26, 2024 9:53am APPLY 1 PATCH TOPICALLY ONCE DAILY. REMOVE AFTER 12 HOURS Complies with drug therapy Start: 02-24-2024 End: 99-82-8926swtsw 1 dose topically once dailyLidocaine 5 % adhesive patch,medicated Discontinued 1 PATCH TOPICAL Daily February 24, 2024 1:00am February 24, 2024 9:54am leave on most painful area for up to 12 hrsStart: 10-24-2023 End: 58-65-9486xihuf 1 dose transdermal route once dailyLidocaine 5 % adhesive patch,medicated Discontinued 0 .ROUTE .COMPLEX October 24, 2023 8:47am January 17, 2024 12:04pm APPLY 1 PATCH TOPICALLY ONCE DAILY. REMOVE AFTER 12 HOURS Start: 06-03-2023 End: 87-36-2223kucbc 1 dose topically once daily as neededLidocaine 5 % adhesive patch,medicated Discontinued 1 PATCH TOPICAL Daily as needed June 03, 2023 1:00am October 24, 2023 8:48am REMOVE AFTER 12 HOURSStart: 68-98-6996Lsowdsqcn 5 % 1 patch remove after 12 hours Externally Once a day for 30 day(s) PRN Jan, ActiveLidocaine 5 % APPLY 1 PATCH TOPICALLY ONCE DAILY. REMOVE AFTER 12 HOURS. for 30 Activelithium carbonate 450 mg extended release oral tablet (8 sources)Start: 24-54-2475gblm 1 tablet by mouth once daily in the morning, then take 2 tablets by mouth once daily in the eveninglithium 450 mg oral tablet, extended release See Instructions, 1 tab po qAM and 2 tabs qPM, # 90 tab (s), Refills(s) 2, Pharmacy: [facility], 182, cm, 12/06/19 12:03:00 EDT, Height/Length Dosing, 200.7, kg, 11/28/19 9:08:00 EDT, Weight Dosing Start Date: 03/17/20 Status: Orderedmagnesium oxide 400 mg oral tablet (5 sources)Start: 00-27-1041wlck 1 tablet by mouth once in the morning, then take 1 tablet by mouth at bedtimemagnesium oxide (MAGOX) 400 mg tablet Indications: headache in second trimester Take 1 tablet (400 mg total) by mouth in the morning and 1 tablet (400 mg total) before bedtime. 120 tablet 1 12/05/2024 Active2 ml ondansetron 2 mg/ml injection (1 source)Serotonin-3 Receptor AntagonistStart: 84-26-7277fbcspeguzyi (ZOFRAN) injection 4 mgpantoprazole 40 mg extended release oral tablet (4 sources)Proton Pump InhibitorStart: 82-90-4453uluf 1 tablet by mouth once dailypantoprazole 40 mg Oral EC Tab 40 mg = 1 tab(s), Oral, Daily, # 30 tab(s), Refills(s) 0 Start Date:09/03/18 Status: OrderedPNV Combo No.47-Iron-FA #1-DHA (PNV-DHA) 27 mg iron-1 mg -300 mg (5 sources)Start: 97-32-9805igsq 1 capsule by mouth once dailyPNV Combo No.47-Iron-FA #1-DHA (PNV-DHA) 27 mg iron-1 mg -300 mg Take 1 capsule by mouth once daily. 08/20/2024 Activepolysaccharide iron complex 391 mg oral capsule (20 sources)Start: 52-79-4974tqxr 1 capsule by mouth twice daily at bedtimeProFe 391.3 (180 Fe) MG capsule Indications: Other iron deficiency anemia TAKE 1 CAPSULE BY MOUTH TWICE DAILY IN THE MORNING AND BEFORE BEDTIME 60 capsule 3 11/06/2024 ActiveStart: 12-07-2023 End: 12-35-7392yffh 1 capsule by mouth once dailyPolysaccharide Iron Complex (Pro Fe) 180 mg iron capsule Discontinued 180 MG PO Daily December 07, 2023 12:00am April 23, 2024 3:52pmtake 2 capsules by mouth twice daily Polysaccharide Iron Complex (PRO FE) 180 mg iron cap Take 2 capsules by mouth two times a day. Activeprenatal xf177-tjoa-rkvyi acid ( 19) 29 mg iron- 1 mg tablet,chewable (7 sources) sm974-mlmt-pbqeh acid ( 19) 29 mg iron- 1 mg tablet,chewable Chew 1 tablet and swallow in the morning. Activepromethazine hydrochloride 25 mg oral tablet (8 sources)PhenothiazineStart: 88-42-0702islo 1 tablet by mouth every six hours as needed for nauseapromethazine (PHENERGAN) 25 MG tablet Take 1 tablet by mouth every 6 hours as needed for Nausea 30 tablet 0 05/07/2020 ActiveStart: 05-06-2020 End: 25-68-3877qpde 1 tablet by mouth four times daily as needed for nausea promethazine (PHENERGAN) 25 MG tablet Take 1 tablet by mouth 4 times daily as needed for Nausea 20 tablet 0 05/07/2020 05/14/2020 ActiveStart: 05-06-2020 promethazine (PHENERGAN) injection 12.5 mgStart: 03-28-2019 End: 70-14-1265aept 1 tablet by mouth every four hours as needed for nausea and vomitingpromethazine (PHENERGAN) 25 MG tablet TAKE 1 TABLET BY MOUTH EVERY 4 HOURS NEEDED FOR NAUSEA ANDVOMITING 0 03/28/2019 05/07/2020 Discontinued (REORDER)QUEtiapine 25 mg oral tablet (20 sources)Atypical AntipsychoticStart: 74-03-4008tfen 1 tablet by mouth at bedtimeQuetiapine 25 mg tablet Active 25 MG PO Bedtime April 10, 2022 1:00am Complies with drug therapyStart: 78-08-1512Fkhacehafi Active MG TABLET April 10, 2022 12:00amStart: 24-93-7182uycs 2 tablets by mouth at bedtime quetiapine 50 mg oral tablet 100 mg = 2 tab(s), Oral, Bedtime, # 60 tab(s), Refills(s) 5, Pharmacy:[facility], 182, cm, 12/06/19 12:03:00 EDT, Height/Length Dosing, 200.7, kg, 11/28/19 9:08:00 EDT, Weight Dosing Start Date: 03/12/20 Status: Orderedtake 1 tablet by mouth once dailyQUEtiapine (SEROQUEL XR) 50 MG extended release tablet Take 50 mg by mouth nightly 0 Xikvvz03 hr scopolamine 0.0139 mg/hr transdermal system (2 sources)AnticholinergicStart: 43-73-6829eizshjtyovh (TRANSDERM-SCOP) transdermal patch 1 patchsertraline 25 mg oral tablet (20 sources)Serotonin Reuptake InhibitorStart: 03-16-8286pvpq 1 tablet by mouth once dailysertraline (Zoloft) 25 MG tablet Take 25 mg by mouth 1 (one) time each day at the same time 09/25/2024 Active3 ml sodium chloride 9 mg/ml injection (2 sources)Start: 96-66-3729bipsxy chloride flush 0.9 % injection 10 mLSprintec oral tablet (4 sources)Start: 81-00-2889Qtunzfgc oral tablet 1 tab(s), Oral, Daily, 28 tab(s), Refill(s) 0 Start Date: 05/25/19 Status: Orderedsulfamethoxazole 400 mg / trimethoprim 80 mg oral tablet (7 sources)Dihydrofolate Reductase Inhibitor Antibacterial, Sulfonamide Antimicrobialtake 1 tablet by mouth every twenty-four hoursBactrim 400-80 MG 1 tablet Orally Once a day Activeziprasidone 80 mg oral capsule (20 sources)Atypical AntipsychoticStart: 20-72-3874vdhh 1 capsule by mouth twice daily at mealtimeziprasidone 80 mg Cap 80 mg = 1 cap(s), Oral, BID, with food, # 60 cap(s), Refills(s) 2, Pharmacy: [facility], 182, cm, 12/06/19 12:03:00 EDT, Height/Length Dosing, 200.7, kg, 11/28/19 9:08:00 EDT, Weight Dosing Start Date: 03/12/20 Status: OrderedStart: 10-08-2019 End: 54-07-5975qslh 1 capsule by mouth twice dailyZiprasidone Hcl [...] oral tablet (20 sources)Opioid AgonistStart: 08-01-2021 End: 51-78-5157uryq 1 tablet by mouth every eight hours as needed for pain Hydrocodone-Acetaminophen 5-325 mg tablet Discontinued 1 TAB PO Q8H as needed for pain 7 2 August 01, 2021 April 10, 2022 7:18pmALPRAZolam 0.5 mg oral tablet (20 sources)BenzodiazepineStart: 06-17-2022 End: 14-58-6139gaag 1 tablet by mouth twice daily as needed for anxiety Alprazolam (Xanax) 0.5 mg tablet Discontinued 0.5 MG PO Twice daily as needed for Anxiety June 03, 2023 9:03am December 02, 2024 11:33pmStart: 06-10-2022 End: 62-71-9973zsgk 1 tablet by mouth once daily as needed for anxietyAlprazolam (Xanax) 0.5 mg Tablet Discontinued 0.5 MG PO Daily as needed for Anxiety June 10, 2022 1:00am June 03, 2023 9:04amStart: 70-98-2933krtj 1-2 tablets by mouth every 30 days at bedtime as needed for anxietyalprazolam 0.5 mg Tab 1-2 tabs, Oral, Bedtime, PRN for anxiety, 30 day supply; DX: F41, anxiety, # 60 tab(s), Refills(s) 1, Pharmacy: [facility], 182, cm, 12/06/19 12:03:00 EDT, Height/Length Dosing, 200.7, kg, 11/28/19 9:08:00 EDT, Weight Dosing Start Date: 01/30/20 Status: OrderedStart: 10-08-2019 End: 89-68-1365jwgv 1 tablet by mouth three times daily as needed for anxiety Alprazolam (Xanax) 0.5 mg Tablet Discontinued 0.5 MG PO Three times daily as needed for Anxiety October 08, 2019 12:00am April 10, 2022 7:18pmatomoxetine 40 mg oral capsule (11 sources)Norepinephrine Reuptake InhibitorStart: 01-25-2022 End: 82-30-3918Crermctea 40 MG capsule 1 (one) time each day at the same time. 01/25/2022 10/22/2024 Udpdntthirrf60 ml bupivacaine hydrochloride 5 mg/ml injection (1 source)Amide Local AnestheticStart: 05-06-2020 End: 85-14-9703ugdywugcbux (PF) (MARCAINE) 0.5 % injection 200 mgStart: 05-06-2020 End: 36-75-7365fsmxvdgevab (PF) (MARCAINE) 0.5 % injection 200 mg12 hr buPROPion hydrochloride 150 mg extended release oral tablet (15 sources)AminoketoneStart: 04-26-2024 End: 70-06-8745azgx 1 tablet by mouth once dailyBupropion Hcl (Wellbutrin Sr) 150 mg tablet sustained-release 12 hr Discontinued 150 MG PO Daily April 26, 2024 1:00am December 02, 2024 11:34pm End: 30-39-9478igag 1 tablet by mouth once dailybuPROPion XL (Wellbutrin XL) 150 MG 24 hr tablet Take 150 mg by mouth Daily Do not crush, chew, or split. 10/22/2024 DiscontinuedbusPIRone hydrochloride 15 mg oral tablet (20 sources)Start: 04-10-2022 End: 91-53-3507dkza 1 tablet by mouth three times daily as neededBuspirone 15 mg tablet Discontinued 15 MG PO Three times daily June 10, 2022 1:00am June 03, 2023 9:04am TAKE 1 TABLET BY MOUTH THREE TIMES DAILY NEEDED FOR 30 DAYSStart: 04-10-2022 End: 51-98-6512ugei 1 tablet by mouth twice dailyBuspirone 15 mg tablet Discontinued 15 MG PO Twice daily June 03, 2023 9:01am December 02, 2024 11:34pmStart: 04-10-2022 End: 26-63-6641Alhqglqzf Discontinued MG TABLET April 10, 2022 1:00am June 10, 2022 6:28pmceFAZolin (ANCEF) 3 g in dextrose 5 % 100 mL IVPB (1 source)Start: 05-06-2020 End: 71-73-2052toHIRqjnw (ANCEF) 3 g in dextrose 5 % 100 mL IVPBcyclobenzaprine hydrochloride 10 mg oral tablet (20 sources)Muscle RelaxantStart: 06-10-2022 End: 00-66-5560soxh 1 tablet by mouth at bedtimeCyclobenzaprine 10 mg tablet Discontinued 10 MG PO Bedtime June 10, 2022 1:00am November 28, 2023 3:55pmStart: 05-07-2020 End: 24-39-3194ifyg 1 tablet by mouth once daily as needed for muscle spasms cyclobenzaprine (FLEXERIL) 10 MG tablet Take 1 tablet by mouth nightly as needed for Muscle spasms 10 tablet 0 05/07/2020 05/17/2020 ActiveStart: 46-00-8608khaj 1 tablet by mouth twice daily as needed for muscle spasmscyclobenzaprine (FLEXERIL) 10 MG tablet Take 1 tablet by mouth 2 times daily as needed for Muscle spasms 20 tablet 0 05/07/2020 ActiveStart: 10-08-2019 End: 80-85-1023nolz 1 tablet by mouth three times daily as needed for muscle spasmsCyclobenzaprine 10 mg tablet Discontinued 10 MG PO Three times daily as needed for Muscle Spasm October 08, 2019 12:00am August 01, 2021 2:19pm End: 43-21-7313mwje 5 mg by mouth three times daily as needed for muscle spasms cyclobenzaprine (Flexeril) 10 MG tablet Take 5 mg by mouth 3 (three) times a day as needed for muscle spasms 10/22/2024 Discontinueddiclofenac sodium 0.01 mg/mg topical gel (17 sources)Nonsteroidal Anti-inflammatory DrugStart: 11-28-2023 End: 93-73-6632pjueg 1 g topically four times daily as needed for painDiclofenac Sodium (Aleve (Diclofenac)) 1 % gel Discontinued 1 GM TOPICAL Four times daily as neededfor pain November 28, 2023 12:00am January 17, 2024 12:03pm apply to single elbow, wrist or hand; for hand includes palm/fingers/back of handStart: 58-16-5520Ugxdrtzfep Sodium 1 % 2 grams Externally Four times a day as needed for 30 day(s) Mar, Activedoxycycline hyclate 100 mg oral tablet (20 sources)Tetracycline-class DrugStart: 08-01-2021 End: 22-22-2610qlmj 1 tablet by mouth twice dailyDoxycycline Hyclate 100 mg tablet Discontinued 100 MG PO Twice daily August 01, 2021 12:00am April 10, 2022 7:18pmergocalciferol 1.25 mg oral capsule (20 sources)Provitamin D2 CompoundStart: 10-08-2019 End: 13-51-1927Xkleejhxtnkrru (Vitamin D2) (Vitamin D2) 1,250 mcg (50,000 unit) capsule Discontinued 96284 UNIT POevery week October 08, 2019 12:00am August 01, 2021 2:19pm Takes on Sundaystart: 65-57-6595Plzfvcp D2 2000 intl units oral capsule Refills(s) 0 Start Date: 05/25/19 Status: OrderedStart: 01-12-2019 End: 10-65-6929xmuc 1 capsule by mouth every weekvitamin D (ERGOCALCIFEROL) 92316 units CAPS capsule Indications: Vitamin D deficiency Take 1 capsule by mouth once a week for 8 doses 8 capsule 0 01/12/2019 05/08/2020 Discontinued (Stop Taking at Discharge) End: 24-60-4342Rsiakwvuhfrihd (VITAMIN D2 PO) Take 50,000 capsules by mouth once a week 0 05/08/2020 Discontinued (Stop Taking at Discharge)Ergocalciferol (VITAMIN D2 PO) Take 50,000 capsules by mouth once a week 0 ActiveNorgestimate- Ethinyl Estradiol (20 sources)Progestin, EstrogenStart: 10-08-2019 End: 38-37-8432oalz 1 tablet by mouth once dailyNorgestimate-Ethinyl Estradiol (Sprintec (28)) 0.25-35 mg-mcg tablet Discontinued 1 TAB PO Daily October 08, 2019 12:00am August 01, 2021 2:19pmStart: 10-08-2019 End: 10-05-2201vgpu 1 tablet by mouth once dailyNorgestimate-Ethinyl Estradiol (Sprintec (28)) 0.25-35 mg-mcg tablet Discontinued 1 TAB PO Daily October 07, 2019 11:00pm August 01, 2021 1:19pmStart: 43-11-5502brrf 1 tablet by mouth once dailySPRINTEC 28 0.25-35 MG-MCG per tablet TAKE 1 TABLET BY MOUTH ONCE DAILY 3 01/13/2019 Active2 ml fentaNYL 0.05 mg/ml injection (1 source)Opioid AgonistStart: 05-06-2020 End: 94-02-9630glximWHD (SUBLIMAZE) injection 25 mcgferrous sulfate 325 mg oral tablet (20 sources)Start: 01-30-2020 End: 49-10-9938drgt 1 tablet by mouth once dailyFerrous Sulfate 325 mg (65 mg iron) tablet Discontinued 325 MG PO Daily June 11, 2022 1:00am August 29, 2023 11:07amgabapentin 300 mg oral capsule (1 source)Anti-epileptic AgentStart: 05-05-2020 End: 90-58-2638rsqo 1 capsule by mouth once daily, then take 1 capsule by mouth, then take 1 capsule by mouthgabapentin (NEURONTIN) 300 MG capsule Take 1 capsule by mouth daily for 2 days. Take one pill the night before and one the morning of surgery 2 capsule 0 05/05/2020 05/08/2020 Discontinued (Stop Taking at Discharge)iohexol (OMNIPAQUE 240) injection 30 mL (1 source)Start: 05-07-2020 End: 00-46-7546xzchnxw (OMNIPAQUE 240) injection 30 mL1 ml ketorolac tromethamine 15 mg/ml cartridge (1 source)Nonsteroidal Anti-inflammatory Drug, Cyclooxygenase InhibitorStart: 05-07-2020 End: 09-31-3413crfokjqby (TORADOL) injection 15 mgStart: 05-07-2020 End: 23-15-3187isfveaeul (TORADOL) injection 15 mglansoprazole 30 mg delayed release oral capsule (20 sources)Proton Pump InhibitorStart: 10-08-2019 End: 78-27-3990giqm 1 capsule by mouth once daily in the morningLansoprazole 30 mg capsule,delayed release(DR/EC) Discontinued 30 MG PO Every morning November 28, 2023 12:00am February 10, 2024 11:58amletrozole 2.5 mg oral tablet (4 sources)Aromatase Inhibitor End: 67-86-6393zbtk 1 tablet by mouth once dailyletrozole (Femara) 2.5 MG chemo tablet Take by mouth Daily. Take with or without food. 09/20/2024 Discontinued (Therapy completed)Lidocaine 5 % adhesive patch,medicated (3 sources)Start: 02-24-2024 End: 28-50-8838zxpfq 1 dose transdermal route once dailyLidocaine 5 % adhesive patch,medicated Discontinued 0 .ROUTE .COMPLEX February 24, 2024 8:53am J anuary 2024 8:57am APPLY 1 PATCH TOPICALLY ONCE DAILY. REMOVE AFTER 12 HOURSStart: 40-29-0753ednqy 1 dose transdermal route once dailyLidocaine 5 % adhesive patch,medicated Active 0 .ROUTE .COMPLEX February 24, 2024 8:53am APPLY 1 PATCH TOPICALLY ONCE DAILY. REMOVE AFTER 12 HOURSlurasidone hydrochloride 40 mg oral tablet (1 source)Atypical Antipsychotic End: 40-27-2934sjdi 1 tablet by mouth once dailylurasidone (LATUDA) 40 MG TABS tablet Take by mouth daily 0 04/22/2020 Discontinued (LIST CLEANUP) medroxyPROGESTERone acetate 10 mg oral tablet (20 sources)ProgestinStart: 04-10-2022 End: 68-60-0697Ghutnrvjcpytzwognoy (Provera) 10 mg tablet Discontinued 10 MG PO Daily 01 25April 10, 2022 1:00am June 10, 2022 6:28pm begin day 16 of cyclemethylPREDNISolone acetate 80 mg/ml injectable suspension (20 sources)CorticosteroidStart: 82-25-0896XEMZ-Medrol Sep, 80 mgStart: 32-12-3174fkyzxdGUMJOQZsxijp 4 MG as directed Orally daily for 6 days August, ActiveStart: 74-46-2956qkspufOMQQHPGzrbvx 4 MG as directed Orally daily for 6 days Jan, Not-Taking2 ml midazolam 1 mg/ml injection (1 source)BenzodiazepineStart: 05-06-2020 End: 51-72-4714mpzuvcxci PF (VERSED) injection 1 mgmupirocin 20 mg/ml topical cream (20 sources)RNA Synthetase Inhibitor AntibacterialStart: 06-10-2022 End: 73-71-1649Digzhitgt Calcium 2 % cream Discontinued 1 APPLIC TOPICAL Twice daily as needed for GENITAL BOILS June 10, 2022 1:00am December 02, 2024 11:34pmStart: 28-60-5486Whypxthze Calcium 2 % 1 application Externally Twice a day for 5 day(s) Jan, ActiveStart: 34-58-5253Htgzonmuk Calcium 2 % 1 application Externally Twice a day for 5 day(s) Jan, Activenaltrexone hydrochloride 50 mg oral tablet (20 sources)Opioid AntagonistStart: 10-25-2023 End: 35-09-8489dbriceglit (Depade) 50 MG tablet every 12 (twelve) hours 10/25/2023 04/21/2024 ActiveStart: 06-03-2023 End: 94-41-2371ltil 2 tablets by mouth twice dailynaltrexone 50 mg tablet Take 2 tablets by mouth two times a day. 06/03/2023 ActiveStart: 06-03-2023 End: 34-41-0081pozn 1 tablet by mouth twice dailyNaltrexone 50 mg tablet Discontinued 100 MG PO Twice daily April 23, 2024 3:51pm December 02, 2024 11:34pmStart: 49-84-0548rbnn 50 mg by mouth once dailyNaltrexone Active 50 MG PO Daily June 03, 2023 1:00amtake 1 tablet by mouth every twenty-four hours Naltrexone HCl 50 MG 1 tablet Orally Once a day ActiveoxyCODONE hydrochloride 5 mg oral tablet (17 sources)Opioid AgonistStart: 12-09-2023 End: 33-81-0326tgjp 1 tablet by mouth at mealtime for painOxycodone 5 mg tablet Discontinued 5 MG PO .q6-8hrs as needed for severe pain 03 22December 09, 2023 December 20, 2023 10:47am Take with food. Do not fill until 12/10/23.Start: 12-06-2023 End: 81-42-4683tkgs 1 tablet by mouth every six hours as needed for pain Oxycodone 5 mg tablet Discontinued 5 MG PO Q6H as needed for Pain 04 09December 06, 2023 December 07, 2023 7:13amrisperiDONE 4 mg oral tablet (1 source)Atypical AntipsychoticStart: 09-19-2018 End: 34-50-7855cnpy 1 tablet by mouth in the morningrisperiDONE (RISPERDAL) 4 MG tablet TAKE 1 2 (ONE HALF) TABLET BY MOUTH IN THE MORNING AND 1 TAB INTHE EVENING 2 09/19/2018 04/22/2020 Discontinued (LIST CLEANUP)traMADol hydrochloride 50 mg oral tablet (17 sources)Opioid AgonistStart: 12-07-2023 End: 24-80-3532jcmm 1 tablet by mouth every eight hours as needed for pain Tramadol 50 mg tablet Discontinued 50 MG PO Every 8 hours as needed for pain 15 7 December 1443:44pm January 17, 2024 12:04pmtrihexyphenidyl hydrochloride 2 mg oral tablet (1 source)Start: 03-28-2019 End: 06-56-5835lngn 1 tablet by mouth twice dailytrihexyphenidyl (ARTANE) 2 MG tablet TAKE 1 TABLET BY MOUTH TWICE DAILY FOR 30 DAYS 0 03/28/2019 04/22/2020 Discontinued (LIST CLEANUP) Problems Active Problems Problem ClassificationProblemDateDocumented DateEpisodic/ChronicAbdominal pain (20 sources)Flank pain; Translations: [Unspecified abdominal pain]07-03-2021 EpisodicAdministrative/social admission (2 sources)Treatment plan given; Translations: [Counseling, unspecified] 92-43-9542YlzzzjbqTspfauod reactions (5 sources)Acute urticaria; Translations: [Other urticaria]34-84-1720Hwemeyfn Anxiety disorders (20 sources)Mixed anxiety and depressive disorder; Translations: [Anxiety disorder, unspecified]52-57-0007GpfwxhiWjnuezopt-deficit, conduct, and disruptive behavior disorders (20 sources)Attention deficit hyperactivity disorder, predominantly inattentive type; Translations: [Attention-deficit hyperactivity disorder, predominantly inattentive type]61-29-1904WkbagudBwptibsgb-deficit, conduct, and disruptive behavior disorders (1 source)Attention-deficit hyperactivity disorder, predominantly inattentive typeChronicAttention-deficit, conduct, and disruptive behavior disorders (20 sources)Attention deficit hyperactivity disorder; Translations: [Attention- deficit hyperactivity disorder, predominantly inattentive type]ChronicBiliary tract disease (4 sources)Wkgrylwnz24-59-1632EsnulsljYawudhbvcjfal and procreative management (14 sources)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 partner; Translations: [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]Onset: 454446-15-4721HpzwhgcdRytvmkgaas and other anemia (19 sources)Anemia; Translations: [Anemia, unspecified]24-93-4684Jspxpvbf Deficiency and other anemia (20 sources)Iron deficiency anemia; Translations: [Iron deficiency anemia, unspecified]08-95-4850AyvresdbPjjibcwmto and other anemia (4 sources)Anemia, unspecified; Translations: [Anemia, unspecified]06-10-2022 EpisodicDeficiency and other anemia (4 sources)Iron deficiency anemia, unspecified; Translations: [Iron deficiency anemia, unspecified]70-30-5154MvfkvisgOackzyguxx and other anemia (2 sources)Other iron deficiency anemiasEpisodicDisorders usually diagnosed in infancy, childhood, or adolescence (20 sources)Non-organic primary nocturnal enuresis; Translations: [Enuresis not due to a substance or known physiological condition]ChronicEsophageal disorders (20 sources)Gastroesophageal reflux disease without esophagitis; Translations: [Gastro-esophageal reflux disease without esophagitis]Onset: 07-16-2021 Resolved: 16-80-5614JujpmddMjeuti infertility (20 sources)Anovulation; Translations: [Female infertility associated with anovulation]Onset: 709952-13-4721QndkkndZgugk of unknown origin (16 sources)Fever; Translations: [Fever, unspecified]14-27-5569Qlrtojoo Genitourinary symptoms and ill-defined conditions (2 sources)Painful micturition, unspecified; Translations: [Other microscopic hematuria]EpisodicHeadache; including migraine (1 source)Headache; including migraine; Translations: [Headache, unspecified] Onset: 56-57-2627Syhhgekjrm during ; abruptio placenta; placenta previa (4 sources)Bleeding from female genital tract during ; Translations: [Antepartum hemorrhage, unspecified, unspecified trimester]Onset: 10-18-2024 59-08-8951IyrtplggGygtngdgrjhic and screening for infectious disease (8 sources)Patient encounter status; Translations: [Encounter for screening for infectious and parasitic diseases, unspecified]Onset: EpisodicMenstrual disorders (20 sources)Menorrhagia; Translations: [Excessive and frequent menstruation with regular cycle]ChronicMood disorders (20 sources)Bipolar disorder; Translations: [Bipolar affective disorder, currently depressed, mild]Onset: 763416-31-9477SeacngoXwewzg and vomiting (16 sources)Vomiting; Translations: [Vomiting, unspecified]49-55-6678Pcefnzth Nutritional deficiencies (20 sources)Vitamin D deficiency; Translations: [Vitamin D deficiency, unspecified]Onset: 01-12-2019 Resolved: 689965-77-9176UsqtmcwXibyugvxbxv deficiencies (4 sources)Iron deficiency; Translations: [Vitamin A deficiency, unspecified] Onset: 07-16-2021 Resolved: 38-07-1260WzivaizvPxqwmknetvzvlq (20 sources)Arthritis of shoulder region joint; Translations: [Primary osteoarthritis, unspecified shoulder]ChronicOther complications of (5 sources)Maternal obesity complicating , childbirth and the puerperium, antepartum; Translations: [Obesity complicating , second trimester]34-56-3641DsgpipkWreie complications of (1 source)Obesity complicating , second trimester; Translations: [Obesity complicating , second trimester]Onset: 20-75-9987XnwlsemWlefu complications of (4 sources)Supervision of resulting from assisted reproductive technology, first trimester; Translations: [ resulting from assisted reproductive technology]Onset: 324831-06-0892LopogqueEsgqf complications of (2 sources)Conceived by in vitro fertilization; Translations: [Supervision of resulting from assisted reproductive technology, first trimester] 76-49-0446MyydwinaRhmor complications of (12 sources)Hypothyroidism in ; Translations: [Endocrine, nutritional and metabolic diseases complicating , second trimester]Onset: 818950-00-3535YkfprsfbBihjd complications of (9 sources)Bipolar disorder; Translations: [Other mental disorders complicating , second trimester]Onset: 972556-26-5402DjqivaseGgram complications of (2 sources)Supervision of resulting from assisted reproductive technology, unspecified trimester; Translations: [ resulting from assisted reproductive technology]Onset: 953309-86-6398VstypgfaTrpiz complications of (8 sources)Headache; Translations: [Other specified related conditions, second trimester]Onset: 404550-46-1093GrwxeuexKsksa complications of (1 source)Other specified related conditions, second trimester; Translations: [Other specified related conditions, second trimester] Onset: 96-27-7553ZuprypbyItheq complications of (1 source)Bariatric surgery status complicating , unspecified trimester; 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 complicating , unspecified trimester]Onset: 98-44-4182IjfzweymHqrcx complications of (1 source)Endocrine, nutritional and metabolic diseases complicating , second trimester; Translations: [Endocrine, nutritional and metabolic diseases complicating , second trimester]Onset: 47-65-5377DuoulrngLuveb complications of (1 source)Other mental disorders complicating , second trimester; Translations: [Other mental disorders complicating , second trimester] Onset: 79-69-2021NufnjuytBdpoa connective tissue disease (4 sources)Plantar nhwnlbron67-89-0868UfeoxwqrDtokn connective tissue disease (1 source)Lateral epicondylitis, right elbowEpisodicOther connective tissue disease (2 sources)Bursitis of right shoulderEpisodicOther connective tissue disease (20 sources)Disorder of ligament, unspecified site; Translations: [Laxity of ligament]EpisodicOther connective tissue disease (14 sources)Laxity of ligament; Translations: [Disorder of ligament, unspecified site]43-69-7363WaodkagrFilhdve on above:right shoulderOther connective tissue disease (4 sources)Bilateral plantar fasciitis; Translations: [Plantar fasciitis, bilateral]Onset: Other female genital disorders (20 sources)Abnormal uterine bleeding; Translations: [Other specified abnormal uterine and vaginal bleeding]74-25-0140HxdbztxIcmxo gastrointestinal disorders (15 sources)Constipation; Translations: [Constipation, unspecified]06-08-2023 EpisodicOther gastrointestinal disorders (1 source)Constipation, unspecified; Translations: [Constipation, unspecified] 16-42-1050QirbdwjbMdfir gastrointestinal disorders (11 sources)History of bypass of stomach; 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]Onset: 194221-71-1079LmmqnrbgDgjqu hematologic conditions (4 sources)H/O: anemia - iron deficient; Translations: [Personal history of diseases of the blood and blood-forming organs and certain disorders involving the immune mechanism]75-91-2963VrlsmvmeYvwcm inflammatory condition of skin (1 source)Erythema intertrigoEpisodicOther nervous system disorders (20 sources)Chronic pain; Translations: [Other chronic pain]36-38-2202Rmjdtib Other nervous system disorders (2 sources)Other chronic pain; Translations: [Other chronic pain]ChronicOther nervous system disorders (12 sources)Carpal tunnel syndrome of right wrist; Translations: [Carpal tunnel syndrome, right upper limb]93-35-0897JgktoowInbjd nervous system disorders (20 sources)Carpal tunnel syndrome, right upper limb; Translations: [Carpal tunnel syndrome]22-23-9014AxhjqklUloxs nervous system disorders (1 source)Postoperative pain ; Translations: [Post-op pain]EpisodicOther nervous system disorders (14 sources)Numbness of hand; Translations: [Anesthesia of skin]10-13-2023 EpisodicOther nervous system disorders (13 sources)Anesthesia of skin; Translations: [Disturbance of skin sensation] 72-22-2647AljpykrnJkamu non-traumatic joint disorders (16 sources)Derangement of right [...] right shoulder joint; Translations: [Other instability, right shoulder]12-01-0654HnfhhpiuGtztg nutritional; endocrine; and metabolic disorders (8 sources)Body mass index 40+ - severely obese; Translations: [Morbid obesity with BMI of 50.0-59.9, adult]Onset: 12-05-2018 Resolved: 058430-41-6426EoppwsmBqkdb nutritional; endocrine; and metabolic disorders (4 sources)Morbid wygrevq94-76-4418YnqaffhPvcvk and delivery including normal (16 sources)Early stage of ; Translations: [Encounter for supervision of normal , unspecified, unspecified trimester]Onset: 09-03-2024 78-54-0841NzajqwkvPwqxw screening for suspected conditions (not mental disorders or infectious disease) (5 sources)Thyroid function tests abnormal; Translations: [Abnormal results of thyroid function studies]Onset: 723635-13-6052OvstzmsvRlsbg skin disorders (1 source)Follicular disorder, unspecifiedEpisodicResidual codes; unclassified (20 sources)Obstructive sleep apnea syndrome; Translations: [Obstructive sleep apnea (adult) (pediatric)]58-71-9920UwlttpkVotggwf on above:patient denies. sleep study 2010Residual codes; unclassified (18 sources)Other specified postprocedural states; Translations: [Other postprocedural status]Onset: 07-16-2021 Resolved: 60-18-7508EdrmnkizYtiysbad codes; unclassified (15 sources)Chill; Translations: [Chills (without fever)]95-25-2735Czxmvirq Residual codes; unclassified (20 sources)History of sleeve gastrectomy; Translations: [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]]61-96-4222DqrftnguYedptyj on above:Aprilesidual codes; unclassified (1 source)Chills (without fever); Translations: [Chills (without fever)] 38-01-9228PgzawfdlHvalyaxz codes; unclassified (1 source)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]; Translations: [Personal history of surgery to other organs]59-16-7544AusthdumZmejgkcx codes; unclassified (9 sources)History of arthroscopic procedure on shoulder; Translations: [Other specified postprocedural states]32-83-3700RzmsqkipVfycyuuh codes; unclassified (1 source)Gestation period, 9 weeks; Translations: [9 weeks gestation of ]25-39-9195SpcxbfesYzsloaip codes; unclassified (2 sources)Gestation period, 13 weeks; Translations: [13 weeks gestation of ]51-83-0480UkxelebaFacpxdao codes; unclassified (2 sources)Gestation period, 18 weeks; Translations: [18 weeks gestation of ]43-74-2211KbiqzogtIqfvlvbo codes; unclassified (1 source)Gestation period, 20 weeks; Translations: [20 weeks gestation of ]80-54-1993QecjbbhpVexwowin codes; unclassified (2 sources)Gestation period, 22 weeks; Translations: [22 weeks gestation of ]10-22-1166KrpsnioeQgstdapp codes; unclassified (2 sources)Gestation period, 26 weeks; Translations: [26 weeks gestation of ]06-70-7590GzkxhjeuXvstffpm codes; unclassified (2 sources)Gestation period, 29 weeks; Translations: [29 weeks gestation of ]83-96-6690NrsnotwdXfsygjts codes; unclassified (2 sources)Gestation period, 31 weeks; Translations: [31 weeks gestation of ]84-21-1235KrdmhiiyIqba and subcutaneous tissue infections (20 sources)Abscess; Translations: [Cutaneous abscess, unspecified]08-01-2021 EpisodicSprains and strains (20 sources)Strain of unspecified muscle, fascia and tendon at shoulder and upper arm level, right arm, initialencounter; Translations: [Strain of other muscles, fascia and tendons at shoulder and upper arm level, right arm, initial encounter]EpisodicSubstance-related disorders (4 sources)Marijuana user; Translations: [Marijuana use]Onset: 12-05-2018 67-48-2596Dpmhtqh disorders (20 sources)Hypothyroidism; Translations: [Acquired hypothyroidism]Onset: 12-05-2018 Resolved: 503658-02-6980JmqfhnkGjxypho disorders (6 sources)Disorder of thyroid gland; Translations: [Disorder of thyroid, unspecified]10-23-9354UhzbifojGssnfxvswfux (2 sources)History of sleeve gastrectomy; Translations: [Status post laparoscopic sleeve gastrectomy]Onset: 104054-36-8398Pwwwrpyrfsbw (5 sources)Patient encounter status; Translations: [Pre-op testing]09-03-2018 Unclassified (1 source) 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)36-19-2763Oalxkqrvcvgs (20 sources)OB RemindersOnset: 21-10-556505800146-68-6722Bjaebvyqgfuk (2 sources)keep next scheduled appointmentUnclassified (1 source)IUI pregnancyOnset: 49-91-2157Xeupzmpryuxe (1 source)Pee's ThyroiditisOnset: 12-05-2024 Past or Other Problems Problem ClassificationProblemDateDocumented DateEpisodic/ChronicScreening and history of mental health and substance abuse codes (1 source)Personal history of nicotine dependenceOnset: 07-16-2021 Resolved: 49-85-0430RgaptehcHlalffpeinqh (3 sources)History of bypass of eezcwte21-78-8173Sszwbbafftgl (1 source)Encounter for supervision of resulting from assisted reproductive technology, pdxxfudsob88-24-9752UITZMWG: Highlighted row has been ruled out!Unclassified (1 source)No known active -[phone] Results Test NameValueInterpretationReference RangeFacilityUS OB BPP W NON-STRESS on 52-52-5341[place] [address] Ultrasound Report Signed Patient: JAZ SANDERS MR#: [id number] : 1995 Acct:[id number] Age/Sex: 29 / F ADM Date: 02/25/25 Loc: US Attending Dr: Les Martinez D.O. Ordering Physician: Les Martinez D.O. Date of Service: 02/25/25 Procedure(s): US OB BPP w non-stress Accession Number(s): [id number] cc: Les Martinez D.O.; AMANDA FORD [place] [id number] Patient Name: JAZ SANDERS MRN: [id number] date: 1995 Sex: F Assigned Patient Location: [facility] Current Patient Location: Accession/Order Number: [id number] Exam Date: 02/25/2025 14:03 Report Date: 02/26/2025 [...] Umana M.D. 02/26/2025 8:30 AM Dictation Location: [place] [address] Electronically authenticated by: [id number] Y Date: 02/26/2025 08:30 Dictated By: Alana Umana M.D. Signed By: 02/26/25831 DD/ 9 TD/TT: Fish Cleaner Machine Tender:TBHRadiology, Radiologist, MD - 02/26/2025 [place] [address] Ultrasound Report Signed Patient: JAZ SANDERS MR#: [id number] : 1995 Acct:[id number] Age/Sex: 29 / F ADM Date: 02/25/25 Loc: US Attending Dr: Les Martinez D.O. Ordering Physician: Les Martinez D.O. Date of Service: 02/25/25 Procedure(s): US OB BPP w non-stress Accession Number(s): [id number] cc: Les Martinez D.O.; AMANDA FORD [address] [address] Patient Name: JAZ SANDERS MRN: [id number] date: 1995 Sex: F Assigned Patient Location: [facility] Current Patient Location: Accession/Order Number: [id number] Exam Date: 02/25/2025 14:03 Report Date: 02/26/2025 [...] Umana M.D. 02/26/2025 8:30 AM Dictation Location: [place] [address] Electronically authenticated by: [id number] Y Date: 02/26/2025 08:30 Dictated By: Alana Umana M.D. Signed By: 02/26/25831 DD/ 9 TD/TT: Fish Cleaner Machine Tender: GUDELIA HealthcareRadiology Study observation (narrative)NOMS HealthcareUS OB BPP W NON-STRESSOrdered By: Radiologist Radiology on 75-42-4873OMBPReynolds County General [facility] Hospital Work Phone: aLL THYROID STIM HORMONEon 79-28-2006JKK Qn1.347 m[IU]/LNOMS HealthcareCLINISYNCNOMS HealthcareUrinalysis macro (dipstick) panel (U)on 97-32-9447Plvhmhdkq, UANegativeNegative - 4(70) +++ mg/dLNOMS Healthcare Blood, UANegativeNegative - 50 Yehuda/mcLNOMS HealthcareClarity, UAClearNOMS HealthcareColor, UAYellowNOMS HealthcareGlucose, UANegativeNegative - 2000(110) ++++ mg/dLNOOH HealthcareInterpretation and review of laboratory resultsNormal NOMS HealthcareKetones, UANegativeNegative - 160(16) ++++ mg/dLNOMS Healthcare Leukocytes, UANegativeNegative - 500+++ Kourtney/mcLNOOH HealthcareNitrite, UA NegativeNegative - PositiveNOMS HealthcarepH, UA6.05 - 9NOMS HealthcareProtein, UANegativeNegative - 2000(20) ++++ mg/dLNOMS HealthcareSpec Grav, UA1.0201 - 1.03NOOH HealthcareUrobilinogen, UA1.00.2 - 12 mg/dLNOMS HealthcareNOMS HealthcareUrinalysis macro (dipstick) panel (U)on 84-35-0999Xqvalmndp, UA NegativeNegative - 4(70) +++ mg/dLNOOH HealthcareBlood, UANegativeNegative - 50 Yehuda/mcLNOOH HealthcareClarity, UAClearNOMS HealthcareColor, UAYellowNOOH HealthcareGlucose, UANegativeNegative - 2000(110) ++++ mg/dLNOOH Healthcare Interpretation and review of laboratory resultsAbnormalNOMS HealthcareKetones, UAPositiveNegative - 160(16) ++++ mg/dLMOUNTAIN WEST [facility] HealthcareLeukocytes, UATrace Negative - 500+++ Kourtney/mcLMOUNTAIN WEST MEDICAL [facility]ENTER HealthcareNitrite, UANegativeNegative - Positive NOMS HealthcarepH, UA6.55 - 9NOMS HealthcareProtein, UANegativeNegative - 2000(20) ++++ mg/dLNOOH HealthcareSpec Grav, UA1.0101 - 1.03NOOH Healthcare Urobilinogen, UA2.00.2 - 12 mg/dLNOMS [facility] Behavioral HospitalNOMS HealthcareUS OB FOLLOW UP TRANSABDOMINAL APPROACHon 62-60-8579QG OB FOLLOW UP TRANSABDOMINAL APPROACH FINDINGS: Comparison [...] Delivery: 04/23/25 Gestational Age as of 01/16/2025: 98i2dMobonicbhl macro (dipstick) panel (U)on 20-71-7267Gibwzrohc, UANegativeNegative - 4(70) +++ mg/dLNOMS HealthcareBlood, UANegativeNegative [...] mg/dLNOMS HealthcareNOMS Healthcare ALL THYROID STIM HORMONEon 52-68-4156RSW Qn2.449 m[IU]/LNOMS HealthcareCLINISYNC NOMS HealthcareALL CBC WITH AUTO DIFFon 45-16-5476HBHSPCBHY ABSOLUTE SWPV1DLTU HealthcareBasophils/100 WBC (Bld)0.3 %0.2 - 2.0 %NOMS HealthcareEosinophils/100 WBC (Bld)1.2 %0.9 - 7.0 %[facility] HealthcareErythrocyte distribution width (RBC) [Ratio]13.2 %11.0 - 15.0 %[facility] HealthcareHematocrit (Bld) [Volume fraction]35.6 %Low36.0 - 48.0 %[facility] HealthcareHemoglobin (Bld) [Mass/Vol]12 g/dL12.0 - 16.0 g/dLReynolds County General Memorial HospitalIMMATURE GRANULOCYTES ABS AUTO0.1HighNOCitizens Memorial HealthcareImmature granulocytes/100 WBC (Bld)0.8 %High0.0 - 0.5 %[facility] HealthcareInterpretation and review of laboratory resultsAbnormalReynolds County General Memorial HospitalLYMPHOCYTES ABSOLUTE AUTO2.3 NOMCitizens Memorial HealthcareLymphocytes/100 WBC (Bld)19.7 %Low20.5 - 60.0 %[facility] HospitalH (RBC) [Entitic mass]29.6 pg26.7 - 34.0 pgReynolds County General Memorial HospitalMCHC (RBC) [Mass/Vol] 33.7 g/dL29.9 - 35.2 g/dLReynolds County General Memorial HospitalMCV (RBC) [Entitic vol]87.7 fL81.0 - 99.0 fLReynolds County General Memorial HospitalMONOCYTES ABSOLUTE AUTO0.7NOCitizens Memorial HealthcareMonocytes/100 WBC (Bld)6.2 %1.7 - 12.0 %[facility] HospitalNEUTROPHILS ABSOLUTE AUTO8.5HighNOCitizens Memorial HealthcareNeutrophils/100 WBC (Bld)71.8 %43.0 - 75.0 %[facility] HospitalPlatelet mean volume (Bld) [Entitic vol]8.7 fLLow9.5 - 13.5 fLReynolds County General Memorial HospitalTBH EO #0.1 [facility] HospitalTB ZTW096DIKXParkland Health Center RBC4.06LowNOCitizens Memorial HealthcareTB WBC11.8 HighReynolds County General Memorial HospitalCLINISYNCNMercy hospital springfieldGLUCOSE 1 HOURon 38-77-6774Swbkfll [Mass/Vol]118 mg/dLNINF - 130 mg/dLFormerly [facility] Urinalysis macro (dipstick) panel (U)on 02-65-6980Uthadmmcq, UANegativeNegative - 4(70) +++ mg/dLNOMS HealthcareBlood, UANegativeNegative - 50 Yehuda/mcLNOMS HealthcareClarity, UAClearNOMS HealthcareColor, UAYellowNOMS HealthcareGlucose, UANegativeNegative - 2000(110) ++++ mg/dLNOOH HealthcareInterpretation and review of laboratory resultsNormalNOMS HealthcareKetones, UANegativeNegative - 160(16) ++++ mg/dLNOOH HealthcareLeukocytes, UANegativeNegative - 500+++ Kourtney/mcL NOMS HealthcareNitrite, UANegativeNegative - PositiveNOMS HealthcarepH, UA75 - 9 NOMS HealthcareProtein, UANegativeNegative - 2000(20) ++++ mg/dLNOOH Healthcare Spec Grav, UA1.011 - 1.03NOMS HealthcareUrobilinogen, UA1.00.2 - 12 mg/dLNOOH HealthcareNOOH HealthcareNo Panel Informationon 20-62-6075JQLNSJPRBKUGJ HealthcareTB UA (CLEAN/CATCH) CARDIOLOGY COORDINATOR/MICRO IF IND.on 84-40-5822VTDPPDTKD URINE NegativeNEGATIVENOMS HealthcareBLOOD URINESMALLAbnormalNEGATIVENOOH Healthcare Clarity (U)CLEARCLEARNOMS HealthcareColor (U)LT. YELLOWYELLOWNOOH Healthcare GLUCOSE URINE UANegativeNEGATIVE mg/dLNOOH HealthcareInterpretation and review of laboratory resultsAbnormalNOMS HealthcareKetones Ql (U)NegativeNEGATIVE mg/dL NOM HealthcareLeukocyte esterase Test strip Ql (U)NegativeNEGATIVENOMS HealthcareNITRITE URINENegativeNEGATIVENOMS HealthcarepH (U)5.5 [pH]5.0 - 9.0 NOMS HealthcarePROTEIN URINENegativeNEG/TRACE mg/dLNOOH HealthcareSPECIFIC GRAVITY URINE1.0151.005 - 1.025NOOH HealthcareURINE MICROSCOPIC INDICATEDYESNOOH HealthcareUROBILINOGEN URINE0.2 EU/dL0.2 - 1.0 EU/dLReynolds County General Memorial HospitalTB URINE MICROSCOPIC ONLYon 14-93-9875OKVXFNKG URINENONE SEENNONE SEEN #/HPFNOMS HealthcareCAST SEEN?NONE SEENNONE SEEN #/LPFNOMS HealthcareCRYSTALS SEEN?None SeenNone Seen #/HPFNOMS HealthcareMUCUS URINENONE SEENNONE SEENNOOH Healthcare SQUAMOUS EPITHELIAL CELL URINERARENONE/RARE #/LPFNOCitizens Memorial HealthcareTBH RBC0-2NOMS [facility] HospitalTB WBCNONE SEENNONE SEEN #/HPFNOCitizens Memorial HealthcareURINE CULTURE INDICATED NONOMS HealthcareUS OB 14+ WEEKS ANATOMY SCANon [id number] OB 14+ WEEKS ANATOMY SCANEXAM: US OB [...] II, MD, PHD at 06-Dec-2024 08:04:50 AM [facility] TeleradiologyNormalNot AvailableComment on above:Order Comment: US OB ANATOMY SINGLE W US OB CERVICAL LENGTH Estimated Date of Delivery: 04/23/25 Gestational Age as of 11/20/2024: 16y4dAkmwclgcsf complete panel (U)on 12-03-2024 Comment c/o urinary symptoms or increased blood pressure Name Collection Type:: VoidedFIRELANDSNOMS HealthcareAppearance of Urineon 22-67-2451Ihyicjscam (U)ClearNormalClearNOMS HealthcareComment on above:Order Comment: Comment c/o urinary symptoms or increased blood pressure Name Collection Type:: VoidedPerformed By: #### ADDONUAPLUS #### [address] [address] USABacteria [Presence] in Urine by AutomatedOrdered By: Eduardo Cruz on 76-35-0133Vqelqsfd Auto Ql (U)1+ [HPF]HighNone SeenGalion Community HospitalBilirubin Test strip Ql (U)Ordered By: Eduardo Cruz on 60-37-9469Rstyjitfq Ql (U)NegativeNegativeGalion Community HospitalColor of Urine by Autoon 42-40-8323Bpavo (U)Light-YellowNormalYellowNOMS Healthcare Comment on above:Order Comment: Comment c/o urinary symptoms or increased blood pressure Name Collection Type:: VoidedPerformed By: #### ADDONUAPLUS #### [facility] [address] [place] [address] USADipstick and Microscopicon 76-05-0795Ibxzuben,Urine1+ [HPF]NormalNone SeenAdventhealth North Pinellas Physician GroupComment on above:Order Comment: Comment c/o urinary symptoms or increased blood pressure Name Collection Type:: VoidedPerformed By: #### ADDONUAPLUS #### [address] [address] USABILIRUBIN,URINENegativeNormalNegativeNOMS Healthcare Comment on above:Order Comment: Comment c/o urinary symptoms or increased blood pressure Name Collection Type:: VoidedPerformed By: #### ADDONUAPLUS #### [place] [address] USAGlucose Ql (U)NormalNormalNormalNOMS HealthcareComment on above:Order Comment: Comment c/o urinary symptoms or increased blood pressure Name Collection Type:: VoidedPerformed By: #### ADDONUAPLUS #### [place] [address] USAHyaline Casts,UrineNoneNormal0-8[facility] Physician GroupComment on above:Order Comment: Comment c/o urinary symptoms or increased blood pressure Name Collection Type:: VoidedPerformed By: #### ADDONUAPLUS #### [place] [address] USAMucus,Urine1+ [LPF]Critically abnormalThe [facility] Physician GroupComment on above:Order Comment: Comment c/o urinary symptoms or increased blood pressure Name Collection Type:: VoidedResult Comment: PERFORMED BY: [place] [address] PATHOLOGIST TANK CARPENTER DAMIÁN DOSHI M.D.Performed By: #### ADDONUAPLUS #### [place] [address] USANITRITE,URINENegativeNormalNegativeNOMS HealthcareComment on above:Order Comment: Comment c/o urinary symptoms or increased blood pressure Name Collection Type:: VoidedPerformed By: #### ADDONUAPLUS #### [place] [address] USAOCCULT BLOOD,URINE3+NormalNegativeNOMS HealthcareComment on above:Order Comment: Comment c/o urinary symptoms or increased blood pressure Name Collection Type:: VoidedResult Comment: PERFORMED BY: [place] [address] PATHOLOGIST TANK CARPENTER DAMIÁN DOSHI M.D.Performed By: #### ADDONUAPLUS #### [facility] [address] [place] [address] USAPROTEIN,URINENegativeNormalNegativeNOMS HealthcareComment on above:Order Comment: Comment c/o urinary symptoms or increased blood pressure Name Collection Type:: VoidedPerformed By: #### ADDONUAPLUS #### [place] [address] USARBC,Peizo1-9Aptadq8-5Tcg [facility] Physician GroupComment on above:Order Comment: Comment c/o urinary symptoms or increased blood pressure Name Collection Type:: VoidedPerformed By: #### ADDONUAPLUS #### [place] [address] USASPECIFICY GRAVITY,URINE1.406Xujyqo0.001-1.030NOMS HealthcareComment on above:Order Comment: Comment c/o urinary symptoms or increased blood pressure Name Collection Type:: VoidedPerformed By: #### ADDONUAPLUS #### [place] [address] USASquamous Epithelial Cell,Edxcg1-3Nkgfhn8-1Ibc [facility] Physician GroupComment on above:Order Comment: Comment c/o urinary symptoms or increased blood pressure Name Collection Type:: VoidedPerformed By: #### ADDONUAPLUS #### [place] [address] USAUROBILINOGEN,URINENormalNormalNormalNOMS HealthcareComment on above:Order Comment: Comment c/o urinary symptoms or increased blood pressure Name Collection Type:: VoidedPerformed By: #### ADDONUAPLUS #### [place] [address] USAWBC,Jrdpd9-8Tizhay8-6Fkc [facility] Physician GroupComment on above:Order Comment: Comment c/o urinary symptoms or increased blood pressure Name Collection Type:: VoidedPerformed By: #### ADDONUAPLUS #### [place] [address] USAEpithelial cells.squamous [#/area] in Urine sediment by Automated countOrdered By: Eduardo Cruz on 25-82-5316Pmbrglppnd cells.squamous Auto (Urine sed) [#/Area]1-2 [HPF]0-2FSt. Mary's [facility], [facility] Erythrocytes [#/area] in Urine sediment by Automated countOrdered By: Eduardo Cruz on 77-96-0478YRQ Auto (Urine sed) [#/Area]1-2 [HPF]0-4FSt. Mary's Medical Center, Ironton CampusGlucose [Mass/volume] in Urine by Test stripOrdered By: Eduardo Cruz on 14-87-2855Muiyvqk Test strip (U) [Mass/Vol]Normal mg/dLNormalGalion Community HospitalHemoglobin Test strip Ql (U)Ordered By: Eduardo Cruz on 72-85-4586Beubrezvbi Ql (U)3+HighNegativeGalion Community Hospital Hyaline casts [#/area] in Urine sediment by Automated countOrdered By: Eduardo Cruz on 28-91-2967Evnmmvc casts Auto (Urine sed) [#/Area]None [LPF]0-8[facility] HospitalKetones [Presence] in Urine by Test stripon 12-02-2024 Ketones Ql (U)NegativeNormalNegativeNOMS HealthcareComment on above:Order Comment: Comment c/o urinary symptoms or increased blood pressure Name Collection Type:: VoidedPerformed By: #### ADDONUAPLUS #### [facility] [address] [place], [place] [address] USALeukocyte esterase [Presence] in Urine by Test stripon 73-40-9419Rhousliaa esterase Test strip Ql (U)NegativeNormalNegativeNOMS HealthcareComment on above:Order Comment: Comment c/o urinary symptoms or increased blood pressure Name Collection Type:: VoidedPerformed By: #### ADDONUAPLUS #### [facility] [address] [place], [place] [address] USALeukocytes [#/area] in Urine sediment by Automated count Ordered By: Eduardo Cruz on 67-82-5150FVW Auto (Urine sed) [#/Area]1-2 [HPF]0-4 [facility] HospitalMucus [Presence] in Urine by AutomatedOrdered By: Eduardo Cruz on 76-81-9149Odxcg Auto Ql (U)1+ [LPF]AbnormalGalion Community HospitalNitrite Test strip Ql (U)Ordered By: Eduardo Cruz on 83-59-6362Zxmvdnw Ql (U)NegativeNegNewark HospitalProtein Test strip (U) [Mass/Vol]Ordered By: Eduardo Cruz on 70-66-8999Ztuzael (U) [Mass/Vol]NegativeNegativeOhioHealth Arthur G.H. Bing, MD, Cancer Centerpecific gravity Test strip (U) [Rel density]Ordered By: Eduardo Cruz on 36-46-3876Lpdtycqg gravity (U) [Rel density]1.0171.001-1.030Galion Community HospitalUrobilinogen Test strip (U) [Mass/Vol]Ordered By: Eduardo Cisneroscarlos on 83-57-8680Uslyegseuojl (U) [Mass/Vol]Normal mg/dLNormGalion Community HospitalpH of Urine by Test stripon 34-51-8380vZ (U)5.5 [pH]Normal5.0-9.0NOMS HealthcareComment on above:Order Comment: Comment c/o urinary symptoms or increased blood pressure Name Collection Type:: VoidedPerformed By: #### ADDONUAPLUS #### [place] [address] USABasophils Auto (Bld) [#/Vol]Ordered By: Elizabeth Osborne ([place]) on 74-62-0545Ivszxvjra (Bld) [#/Vol]0.0 10 3/uL0.0-0.1FSt. Mary's Medical Center, [facility] CampusBasophils/100 WBC Auto (Bld)Ordered By: Elizabeth Osborne ([place]) on 98-87-4174Vqxvnwsfv/100 WBC (Bld)0.3 %0.2-2.0[facility] Eosinophils/100 WBC Auto (Bld)Ordered By: (Roman) Elizabeth Osborne on 12-01-2024 Eosinophils/100 WBC (Bld)1.8 %0.9-7.0[facility] Erythrocyte distribution width Auto (RBC) [Ratio]Ordered By: Elizabeth Osborne ([place]) on 69-62-0028Ywkinpflmpr distribution width (RBC) [Ratio]14.0 %11.0-15.0 [facility] HospitalGlobulin Calc (S) [Mass/Vol]Ordered By: ([place]) Elizabeth Osborne on 90-30-4346Pcgniuet (S) [Mass/Vol]3.6 g/dLGalion Community HospitalGlomerular filtration rate (GFR) estimation in non- AmericanOrdered By: (Roman) Elizabeth India on 24-79-3652HRJ/1.73 sq M.predicted among non-blacks MDRD (S/P/Bld) [Vol rate/Area]mL/min/{1.73_m2}>=60 mL/min/1.73m 2FSt. Mary's Medical Center, Ironton CampusHematocrit Auto (Bld) [Volume fraction]Ordered By: (Roman) Elizabeth Osborne on 96-03-3586Afmqwbftpn (Bld) [Volume fraction]38.0 %36.0-48.0[facility] HospitalHemoglobin [Mass/volume] in BloodOrdered By: (Roman) Elizabeth Osborne on 01-10-4821Zskppvxiqw (Bld) [Mass/Vol]13.0 g/dL12.0-16.0[facility] HospitalLaboratory - Chemistry and Chemistry - challengeOrdered By: (Roman) Elizabeth Osborne on 30-30-8385Rcugtnzio Ql (U)NegativeNEGATIVEGalion Community Hospital Glucose (U) [Mass/Vol]NegativeNEGATIVEGalion Community HospitalKetones Ql (U)NegativeNEGATIVEGalion Community HospitalpH (U)6.0 [pH]5.0-9.0 [facility], Cancer Centerpecific gravity (U) [Rel density]1.025 1.005-1.025Gal[facility] Community HospitalUrobilinogen Qn (U)1.0 {Fabián'U}/dL0.2-1.0[facility] HospitalAlbumin [Mass/Vol]3.1 g/dL Low3.4-5.0[facility] HospitalALP [Catalytic activity/Vol]45 U/LLow 46-116Gal[facility] HospitalALT [Catalytic activity/Vol]20 U/L14-59 [facility] HospitalAST [Catalytic activity/Vol]14 U/ATqr09-58 [facility] HospitalBilirubin [Mass/Vol]0.4 mg/dL0.2-1.0[facility] HospitalCalcium [Mass/Vol]8.6 mg/dL8.5-10.1FSt. Mary's Medical Center, Iront[facility] CampusChloride [Moles/Vol]106 mmol/N94-960UjkcvegaqGalion Community HospitalCO2 [Moles/Vol]25.7 mmol/L21.0-32.0[facility] Creatinine [Mass/Vol]0.37 mg/dLLow0.55-1.02[facility] GFR/1.73 sq M.predicted MDRD (S/P/Bld) [Vol rate/Area]mL/min/{1.73_m2}>=60 mL/min/1.73m 2FSt. Mary's Medical Center, Iront[facility] CampusGlucose [Mass/Vol]61 mg/dLLow 74-106Gal[facility] HospitalPotassium [Moles/Vol]3.9 mmol/L3.5-5.1 [facility] HospitalProtein [Mass/Vol]6.7 g/dL6.4-8.2FOhioHealth Nelsonville Health Centerodium [Moles/Vol]139 mmol/P895-667KyoofyfrxGalion Community HospitalUrea nitrogen [Mass/Vol]3.0 mg/dLLow7.0-18.0[facility] HospitalUrea nitrogen/Creatinine [Mass ratio]8.1 mg/mgGalion Community HospitalLaboratory - Hematology and Cell countsOrdered By: Elizabeth Osborne ([place]) on 17-40-6688Ersdlnds granulocytes/100 WBC (Bld)1.0 %High0.0-0.5 [facility] HospitalLaboratory - Specimen informationOrdered By: Elizabeth Osborne ([place]) on 35-75-6367Kigbzrwflu (U)CLEARCLEARFSt. Mary's Medical Center, Ironton CampusColor (U)LT. YELLOWYELLOWGalion Community Hospital Laboratory - UrinalysisOrdered By: Elizabeth Osborne ([place]) on 78-17-6897Sbiwjhpdw esterase Test strip Ql (U)NegativeNEGATIVEGalion Community Hospital Nitrite Ql (U)NegativeNEGATIVEGalion Community HospitalProtein Ql (U) NegativeNEG/TRACEGalion Community HospitalLeukocytes [#/volume] corrected for nucleated erythrocytes in Blood by Automated counOrdered By: (Owens) Elizabeth Osborne on 78-72-6516VBS corrected for nucl RBC Auto (Bld) [#/Vol]10.0 10 3/uL4.0-11.0[facility] HospitalLymphocytes Auto (Bld) [#/Vol]Ordered By: (Owens) Elizabethnura Thomason on 97-03-0234Kbghteeeyfg (Bld) [#/Vol]2.2 10 3/uL1.2-3.8[facility] HospitalLymphocytes/100 WBC Auto (Bld)Ordered By: (Owens) Elizabethnura Thomason on 32-82-2781Jvrlhndeyqo/100 WBC (Bld)22.1 %20.5-60.0[facility] Auto (RBC) [Entitic mass]Ordered By: (Owens) Elizabethnura Thomason on 59-39-7088ZDU (RBC) [Entitic mass] 29.8 pg26.7-34.0[facility] HospitalMCHC Auto (RBC) [Mass/Vol] Ordered By: (Owens) Elizabethnura Thomason on 50-83-9989TRTJ (RBC) [Mass/Vol]34.2 g/dL 29.9-35.2FSt. Mary's Medical Center, Ironton CampusMCV Auto (RBC) [Entitic vol]Ordered By: (Owens) Elizabethnura Thomason on 73-03-7874ASS (RBC) [Entitic vol]87.2 fL81.0-99.0 [facility] HospitalMonocytes Auto (Bld) [#/Vol]Ordered By: (Owens) Elizabethnura Thomason on 27-20-5712Mamurzbxm (Bld) [#/Vol]0.7 10 3/uL0.3-0.8 [facility] HospitalMonocytes/100 WBC Auto (Bld)Ordered By: (Owens) Elizabeth [place] on 38-69-8865Yeucuoppb/100 WBC (Bld)6.5 %1.7-12.0 [facility] HospitalNeutrophils Auto (Bld) [#/Vol]Ordered By: (Owens) Elizabeth [place] on 67-12-3775Tqxnbwdcziz (Bld) [#/Vol]6.9 10 3/uLHigh 1.4-6.5FSt. Mary's Medical Center, Ironton CampusNeutrophils/100 WBC Auto (Bld)Ordered By: Angelina) Elizabeth Osborne on 89-88-2741Ewcbobcbrdl/100 WBC (Bld)68.3 %43.0-75.0 [facility] HospitalNo Panel InformationOrdered By: (Roman) Elizabeth Osborne on 52-45-7012Pfjwd Microscopic ReviewNOGalion Community HospitalUrine Occult BloodNegativeNEGATIVEGalion Community Hospital Eosinophils # (Auto)0.2 10 3/uL0.0-0.7FSt. Mary's Medical Center, Iront[facility] CampusImmature Granulocyte # (Auto)0.10 10 3/uLHigh0.00-0.03[facility] Platelet mean volume Auto (Bld) [Entitic vol]Ordered By: Elizabeth Osborne ([place]) on 79-06-9664Avxqjccg mean volume (Bld) [Entitic vol]8.3 fLLow9.5-13.5FSt. Mary's Medical Center, Ironton CampusPlatelets Auto (Bld) [#/Vol]Ordered By: Angelina) Elizabeth Osborne on 64-92-5208Dgqsbikag (Bld) [#/Vol]177 10 3/mB382-463WatydomsbGalion Community HospitalRBC Auto (Bld) [#/Vol]Ordered By: Angelina) Elizabeth Osborne on 45-53-0617NIV (Bld) [#/Vol]4.36 10 6/uL4.20-5.40[facility] MD, Cancer Centererum or plasma albumin/globulin mass ratioOrdered By: (Roman) Elizabeth Osborne on 22-43-8108Hbxfapj/Globulin [Mass ratio]0.9 {ratio}[facility], [facility], Cancer Centererum or plasma anion gap determinationOrdered By: Angelina) Elizabeth Osborne on 13-02-1577Jpfav gap [Moles/Vol]11.2 mmol/LFSt. Mary's Medical Center, Ironton CampusBasophils Auto (Bld) [#/Vol]Ordered By: Chris Dickerson on 04-97-2732Exongzjcd (Bld) [#/Vol]0.0 10 3/uL0.0-0.1FSt. Mary's Medical Center, Ironton CampusBasophils/100 WBC Auto (Bld)Ordered By: Chris Dickerson on 11-30-2024 Basophils/100 WBC (Bld)0.2 %0.2-2.0[facility] Eosinophils/100 WBC Auto (Bld)Ordered By: Chris Dickerson on 11-30-2024 Eosinophils/100 WBC (Bld)1.7 %0.9-7.0[facility] Erythrocyte distribution width Auto (RBC) [Ratio]Ordered By: Chris Dickerson on 32-46-7389Sdvqybodqam distribution width (RBC) [Ratio]14.1 %11.0-15.0[facility] HospitalGlobulin Calc (S) [Mass/Vol]Ordered By: Chris Dickerson on 18-81-8353Yvcznbia (S) [Mass/Vol]3.3 g/dLGalion Community Hospital Glomerular filtration rate (GFR) estimation in non- AmericanOrdered By: Chris Dickerson on 05-32-6628BHW/1.73 sq M.predicted among non-blacks MDRD (S/P/Bld) [Vol rate/Area]mL/min/{1.73_m2}>=60 mL/min/1.73m 2FSt. Mary's Medical Center, Ironton CampusHematocrit Auto (Bld) [Volume fraction]Ordered By: Chris Dickerson on 22-91-8310Rlajychpcp (Bld) [Volume fraction]36.2 %36.0-48.0[facility] HospitalHemoglobin [Mass/volume] in BloodOrdered By: Chris Dickerson on 65-53-8198Pvwhoxeqgg (Bld) [Mass/Vol]12.6 g/dL12.0-16.0[facility] HospitalLaboratory - Chemistry and Chemistry - challengeOrdered By: Chris Dickerson on 30-46-8378Hpxajehkd Ql (U)NegativeNEGATIVEGalion Community HospitalGlucose (U) [Mass/Vol]NegativeNEGATIVEGalion Community HospitalKetones Ql (U)NegativeNEGATIVEGalion Community HospitalpH (U)6.0 [pH]5.0-9.0[facility] MD, Cancer Centerpecific gravity (U) [Rel density] 1.0151.005-1.025[facility] HospitalUrobilinogen Qn (U)1.0 {Fabián'U}/dL0.2-1.0[facility] HospitalAlbumin [Mass/Vol]3.1 g/dL Low3.4-5.0[facility] HospitalALP [Catalytic activity/Vol]47 U/L 46-116[facility] HospitalALT [Catalytic activity/Vol]20 U/L14-59 [facility] HospitalAST [Catalytic activity/Vol]12 U/TIhz22-57 [facility] HospitalBilirubin [Mass/Vol]0.3 mg/dL0.2-1.0[facility] HospitalBilirubin.direct [Mass/Vol]0.1 mg/dL0.0-0.2FSt. Mary's Medical Center, Iront[facility] CampusCalcium [Mass/Vol]8.8 mg/dL8.5-10.1FSt. Mary's Medical Center, [facility] CampusChloride [Moles/Vol]108 mmol/NLmcq74-186BjaiuiyxwGalion Community HospitalCO2 [Moles/Vol]26.0 mmol/L21.0-32.0[facility] Creatinine [Mass/Vol]0.32 mg/dLLow0.55-1.02[facility] GFR/1.73 sq M.predicted MDRD (S/P/Bld) [Vol rate/Area]mL/min/{1.73_m2}>=60 mL/min/1.73m 2FSt. Mary's Medical Center, Ironton CampusGlucose [Mass/Vol]74 mg/hO73-377 [facility] HospitalPotassium [Moles/Vol]4.1 mmol/L3.5-5.1FSt. Mary's Medical Center, [facility] CampusProtein [Mass/Vol]6.4 g/dL6.4-8.2FOhioHealth Nelsonville Health Centerodium [Moles/Vol]142 mmol/X983-789FtddlyteoGalion Community HospitalUrate [Mass/Vol]3.0 mg/dL2.6-6.0[facility] HospitalUrea nitrogen [Mass/Vol]7.0 mg/dL7.0-18.0[facility] HospitalUrea nitrogen/Creatinine [Mass ratio]21.9 mg/mgGalion Community Hospital Laboratory - Hematology and Cell countsOrdered By: Chris Dickerson on 11-30-2024 Immature granulocytes/100 WBC (Bld)0.7 %High0.0-0.5FSt. Mary's Medical Center, Ironton CampusLaboratory - Specimen informationOrdered By: Chris Dickerson on 11-30-2024 Appearance (U)CLEARCLEARFSt. Mary's Medical Center, Ironton CampusColor (U)LT. YELLOW YELLOWGalion Community HospitalLaboratory - UrinalysisOrdered By: Chris Dickerson on 49-31-6037Rfjcgayjg esterase Test strip Ql (U)SMALLAbnormal NEGATIVEGalion Community HospitalMucus Ql (Urine sed)TRACEAbnormalNONE SEENGalion Community HospitalNitrite Ql (U)NegativeNEGATIVEGalion Community HospitalProtein Ql (U)NegativeNEG/TRACEGalion Community HospitalLeukocytes [#/volume] corrected for nucleated erythrocytes in Blood by Automated counOrdered By: Chris Dickerson on 07-36-9743HAF corrected for nucl RBC Auto (Bld) [#/Vol]8.7 10 3/uL4.0-11.0[facility] Lymphocytes Auto (Bld) [#/Vol]Ordered By: Chris Dickerson on 67-70-5070Vnwvyqccspn (Bld) [#/Vol]2.0 10 3/uL1.2-3.8[facility] HospitalLymphocytes/100 WBC Auto (Bld)Ordered By: Chris Dickerson on 86-97-8899Wgeooebygpj/100 WBC (Bld) 22.9 %20.5-60.0[facility] Auto (RBC) [Entitic mass] Ordered By: Chris Dickerson on 30-83-1428SKJ (RBC) [Entitic mass]30.0 pg26.7-34.0 [facility] HospitalMCHC Auto (RBC) [Mass/Vol]Ordered By: Chris Dickerson on 76-77-5277ZSSO (RBC) [Mass/Vol]34.8 g/dL29.9-35.2FSt. Mary's Medical Center, Ironton CampusMCV Auto (RBC) [Entitic vol]Ordered By: Chris Dickerson on 91-64-6363MCZ (RBC) [Entitic vol]86.2 fL81.0-99.0[facility] HospitalMonocytes Auto (Bld) [#/Vol]Ordered By: Chris Dickerson on 11-30-2024 Monocytes (Bld) [#/Vol]0.6 10 3/uL0.3-0.8[facility] Monocytes/100 WBC Auto (Bld)Ordered By: Chris Dickerson on 33-37-3035Tvewajjhp/100 WBC (Bld)7.2 %1.7-12.0[facility] HospitalNeutrophils Auto (Bld) [#/Vol]Ordered By: hCris Dickerson on 89-89-5983Olalprivbyl (Bld) [#/Vol]5.9 10 3/uL1.4-6.5FSt. Mary's Medical Center, Ironton CampusNeutrophils/100 WBC Auto (Bld) Ordered By: Chris Dickerson on 25-31-9403Ogjnmqjsmea/100 WBC (Bld)67.3 %43.0-75.0 [facility] HospitalNo Panel InformationOrdered By: Chris Dickerson on 34-49-5713Iroeh BacteriaMODERATE #/HPFAbnormalNONE [facility] CenterUrine Culture ReflexedYE-[facility] Urine Occult BloodNegativeNEGATIVEGalion Community HospitalUrine Other CastsNONE SEEN #/LPFNONE [facility] CenterUrine Other CrystalsNone Seen #/HPFNone [facility] TownshipUrine RBC0-2 #/HPF0-2FSt. Mary's Medical Center, [facility] CampusUrine Squamous Epithelial CellsFEW #/LPFAbnormalNONE/RAREGalion Community HospitalUrine WBC0-2 #/HPF AbnormalNONE [facility] CenterEosinophils # (Auto)0.2 10 3/uL0.0-0.7FSt. Mary's Medical Center, [facility] CampusImmature Granulocyte # (Auto)0.06 10 3/uLHigh0.00-0.03[facility] HospitalPlatelet mean volume Auto (Bld) [Entitic vol]Ordered By: Chris Dickerson on 25-77-1583Wlxccirv mean volume (Bld) [Entitic vol]8.7 fLLow9.5-13.5FSt. Mary's Medical Center, Iront[facility] CampusPlatelets Auto (Bld) [#/Vol]Ordered By: Chris Dickerson on 28-88-0503Kpkhubmez (Bld) [#/Vol] 185 10 3/rE778-964GhtjliprzGalion Community HospitalRBC Auto (Bld) [#/Vol]Ordered By: Chris Dickerson on 09-44-4717RAC (Bld) [#/Vol]4.20 10 6/uL4.20-5.40[facility] Cancer Centererum or plasma albumin/globulin mass ratioOrdered By: Chris Dickerson on 94-46-4320Higxjpc/Globulin [Mass ratio]0.9 {ratio}[facility] Cancer Centererum or plasma anion gap determinationOrdered By: Chris Dickerson on 97-06-5246Ocpaj gap [Moles/Vol]12.1 mmol/LFSt. Mary's Medical Center, Ironton CampusUrine Cultureon 95-28-1721Phlhwkzk identified Cx Nom (U)50,000 colonies/ml mixed bacterial skin contaminants 2 Days PERFORMED BY: [place] [address] PATHOLOGIST TANK CARPENTER DAMIÁN DOSHI M.D.NormalAdventhealth North Pinellas Physician GroupComment on above: Performed By: #### CUU #### [place] [address] USARECURRENT VAGINITIS (HTRX)on 23-80-8982ECUCIPAKW VAGINAE0 NOMS HealthcareATOPOBIUM VAGINAENot detectedNOMS HealthcareBVAB 2,3 (BACTERIAL VAGINOSIS ASSOCIATED BACTERIA 2, 3); MOBILUNCUS VDE7CLVN HealthcareBVAB 2,3 (BACTERIAL VAGINOSIS ASSOCIATED BACTERIA 2, 3); MOBILUNCUS SPPNot detectedNOMS HealthcareCANDIDA ALBICANS, PARAPSILOSIS, [id number] HealthcareCANDIDA ALBICANS, PARAPSILOSIS, TROPICALISNot detectedNOMS HealthcareCANDIDA GLABRATA0 NOMS HealthcareCANDIDA GLABRATANot detectedNOMS HealthcareCANDIDA BJVPMI8ARSC HealthcareCANDIDA KRUSEINot detectedNOMS HealthcareCHLAMYDIA TSKGUKOVPMJ2EQBQ HealthcareCHLAMYDIA TRACHOMATISNot detectedNOMS HealthcareGARDNERELLA VAGINALIS0 NOMS HealthcareGARDNERELLA VAGINALISNot detectedNOMS HealthcareMEGASPHAERA (TYPES 1, 2)0NOMS HealthcareMEGASPHAERA (TYPES 1, 2)Not detectedNOMS Healthcare MYCOPLASMA NRIHBOWDSE7ADLU HealthcareMYCOPLASMA GENITALIUMNot detectedNOMS HealthcareNEISSERIA FEMWMTNGRJJ3FKOC HealthcareNEISSERIA GONORRHOEAENot detected NOMS HealthcareTRICHOMONAS LRSCRGIVZ6KBOS HealthcareTRICHOMONAS VAGINALISNot detectedNOMS HealthcareNOMS HealthcareALL THYROID STIM HORMONEon 37-28-5258MWZ Qn1.702 m[IU]/LNOMS HealthcareCLINISYNCNOMS HealthcareAlpha-fetoprotein (AFP) measurement (httyxlam-bg-ipelsg)Ordered By: Les Martinez on 90-78-8098HYE [MoM] 0.87.[facility] HospitalAssess gestational ageOrdered By: Les Martinez on 27-90-2504Gddaehjqnxx age18.0 weeks.[facility] Estimation of maternal age-specific risk of Down syndrome birthOrdered By: Les Martinez on 13-76-6629Luy [Time]30.1 yr.[facility] HospitalInsulin dependent diabetes mellitus detectionOrdered By: Les Martinez on 11-20-2024 Insulin dependent diabetes mellitus QlNo.[facility] Interpretation of serum or plasma second trimester quad maternal screen (narrative reOrdered By: Les Martinez on 40-10-6221Ftocki trimester quad maternal screen Gonzales [Interp]Comment.[facility] HospitalComment on above: Interpretation: Screen NegativeThis result [...] and older.Second trimester quad maternal screen Gonzales [Interp]Negative.[facility] HospitalLaboratory - Chemistry and Chemistry - challengeOrdered By: Les Martinez on 97-86-0549AYT Qn1.702 m[IU]/L 0.358-3.740[facility] HospitalNo Panel InformationOrdered By: Les Martinez on 78-27-1369RPC Triple Screen CommentComment.[facility] HospitalComment on above:Gisel Gandhi, Ph.D., DABCCDirectorReferences: Available Upon Request.Multiples Of Median Cutoffs For AFP ElevationsSingleton 2.5 Black 2.8IDD 2.0 Twins 4.5 Abbreviation DefinitionsIDD - Insulin Dep DiabetesOSBR - Open Spina Bifida RiskFor further inquiries contact [facility] at [phone].This test was developed and its performance characteristicsdetermined by [employer]. It has not been cleared or approvedby the Food and Drug Administration.Performed at: [facility] [employer] [id number] [place], [place] [id number] Director: Lorena Ellis [facility], Phone: [phone] Fetoprotein Results ReceivedReport.[facility] Community HospitalGestational Age Calculation MethodUltrasound.[facility] Community HospitalComment on above:18.0 on 11/20/2024Recalculations are not recommended when gestational datingby LMP and ultrasound are within 10 days. Maternal Quad Test [id number].[facility] Community HospitalMaternal RaceOther .[facility] Community HospitalMultiple PregnancyNo.[facility]. Bing, MD, Cancer Centererum or plasma svgne-6-bzrriswcfqb measurement (mass/volume) Ordered By: eLs Martinez on 31-09-7790DVB [Mass/Vol]27.6 ng/mL.[facility] Community HospitalUrinalysis macro (dipstick) panel (U)on 91-93-6660Squshdooh, UA NegativeNegative - 4(70) +++ mg/dLNOMS HealthcareBlood, UANegativeNegative - 50 Yehuda/mcLNOMS HealthcareClarity, UAClearNOMS HealthcareColor, UAYellowNOMS HealthcareGlucose, UANegativeNegative - 2000(110) ++++ mg/dLNOMS Healthcare Interpretation and review of laboratory resultsAbnormalNOOH HealthcareKetones, UANegativeNegative - 160(16) ++++ mg/dLReynolds County General Memorial HospitalLeukocytes, UA2+Negative - 500+++ Kourtney/mcLNOCitizens Memorial HealthcareNitrite, UANegativeNegative - PositiveNOOH HealthcarepH, UA85 - 9NOOH HealthcareProtein, UANegativeNegative - 2000(20) ++++ mg/dLReynolds County General Memorial HospitalSpec Grav, UA1.011 - 1.03NOCitizens Memorial HealthcareUrobilinogen, UA1.0 0.2 - 12 mg/dLFrye Regional Medical CenterLaboratory - Chemistry and Chemistry - challengeOrdered By: Chris Dickerson on 10-79-7848Mpeghxwyt Ql (U)Negative NEGATIVEGalion Community HospitalGlucose (U) [Mass/Vol]NegativeNEGATIVE [facility] HospitalKetones Ql (U)NegativeNEGPremier Health Miami Valley Hospital NorthpH (U)7.5 [pH]5.0-9.0[facility] Specific gravity (U) [Rel density]1.0101.005-1.025Gal[facility] Community HospitalUrobilinogen Qn (U)1.0 {Fabián'U}/dL0.2-1.0[facility] HospitalLaboratory - Specimen informationOrdered By: Chris Dickerson on 11-17-2024 Appearance (U)CLEARCLEARFSt. Mary's Medical Center, Ironton CampusColor (U)LT. YELLOW YELLOWGalion Community HospitalLaboratory - UrinalysisOrdered By: Chris Dickerson on 60-67-4105Lmjuyrtup esterase Test strip Ql (U)NegativeNEGATIVE [facility] HospitalMucus Ql (Urine sed)NONE SEENNONE [facility] Medical CenterNitrite Ql (U)NegativeNEGPremier Health Miami Valley Hospital NorthProtein Ql (U)NegativeNEG/TRACEGalion Community HospitalNo Panel InformationOrdered By: Chris Dickerson on 49-33-6716Itgqy BacteriaTRACE #/HPF AbnormalNONE [facility]terson Medical CenterUrine Culture ReflexedNO [facility] HospitalUrine Occult BloodNegativeNEGPremier Health Miami Valley Hospital NorthUrine Other CastsNONE SEEN #/LPFNONE SEENColumbus Regional Healthcare Systemelands Regional Medical CenterUrine Other CrystalsNone Seen #/HPFNone [facility]tering [facility] Washington TownshipUrine RBCNONE SEEN #/HPF0-2FSt. Mary's Medical Center, Ironton CampusUrine Squamous Epithelial CellsRARE #/LPFNONE/RAREGalion Community HospitalUrine WBCNONE SEEN #/HPFNONE [facility] Ultrasound - Officeon 70-19-3929Nvkoyzrzh Study observation (narrative)ProMedicRice Memorial Hospital SystemUrinalysis macro (dipstick) panel (U)on 65-03-9582Vasiandth, UA NegativeNegative - 4(70) +++ mg/dLNOMS HealthcareBlood, [...] HealthcareAppearance of UrineOrdered By: Kassidy Arriaza on 69-84-1702Mlurrccrqk (U)ClearNormalClearGalion Community HospitalComment on above:Order Comment: Name Collection Type:: Clean- Voided MidstreamPerformed By: #### UA, CUU #### [place] [address] USABilirubin Test strip Ql (U)Ordered By: Kassidy Arriaza on 18-00-9620Rvpgqypsj Ql (U)NegativeNegNewark Hospital Chlamydia/GC Amplificationon 43-44-8655Zeyqxoqfw Trachomotis, NAANegativeNormal NegativeThe Anson [facility] Hospital Physician GroupComment on above:Order Comment: SOURCE OF SPECIMEN: GenitalPerformed By: #### GCCHLAMAMP #### [facility] , #### CUGEN #### [place] [address] USANeisseria Gonorrhoeae, NAANegativeNormalNegativeThe [facility]son [facility] Hospital Physician GroupComment on above:Order Comment: SOURCE OF SPECIMEN: GenitalResult Comment: Performed at: = - [facility] [id number] Director Of Child Welfare Services: Dagmar Love MD, Phone: [phone] PERFORMED BY: [place] [address] PATHOLOGIST TANK CARPENTER DAMIÁN DOSHI M.D.Performed By: #### GCCHLAMAMP #### [facility] , #### CUGEN #### [place] [address] USAColor of Urine by AutoOrdered By: Kassidy Arriaza on 38-95-3303Iqfer (U)ColorlessNormalYTogus VA Medical CenterComment on above:Order Comment: Name Collection Type:: Clean-Voided MidstreamPerformed By: #### UA, CUU #### [place] [address] USAGenital Cultureon 94-49-2938Ncbqtzq CultureGenital Results Light Normal Urogenital Damián 2 Days No More GC Specimen not tested for Neisseria gonorrheae PERFORMED BY: [place] [address] PATHOLOGIST TANK CARPENTER DAMIÁN DOSHI M.D.NormalThe Anson Community Hospital Physician GroupComment on above: Performed By: #### GCCHLAMAMP #### [facility] , #### CUGEN #### [place] [address] USAGenital specimen bacteria identification by aerobic cultureOrdered By: Kassidy Arriaza on 95-22-7824Dfdewkmf identified Aer cx Nom (Genital specimen)[facility] HospitalGlucose [Mass/volume] in Urine by Test stripOrdered By: Kassidy Arriaza on 46-21-2446Okcxzbp Test strip (U) [Mass/Vol]Normal mg/dLNormGalion Community HospitalHemoglobin Test strip Ql (U)Ordered By: Kassidy Arriaza on 41-30-2458Kugbvjdtea Ql (U)Negative [facility] Memorial HospitalKetones [Presence] in Urine by Test stripOrdered By: Kassidy Arriaza on 98-70-4700Upnuywz Ql (U)TraceNormalAdams County Regional Medical CenterComment on above:Order Comment: Name Collection Type:: Clean-Voided MidstreamPerformed By: #### UA, CUU #### [facility] [address] [place] [address] USALaboratory - Microbiology and Antimicrobial susceptibility Ordered By: Kassidy Arriaza on 10-18-2024. trachomatis DNA AC+probe Ql (Unsp spec)NegativeNegNewark HospitalN. gonorrhoeae DNA AC+probe Ql (Unsp spec)NegativeNegNewark HospitalComment on above:Performed at: = - [facility] [id number] Director: Dagmar Love MD, Phone: [phone] esterase [Presence] in Urine by Test stripOrdered By: Kassidy Arriaza on 10-18-2024 Leukocyte esterase Test strip Ql (U)NegativeNormalGreene Memorial HospitalComment on above:Order Comment: Name Collection Type:: Clean- Voided MidstreamPerformed By: #### UA, CUU #### [facility] [address] [place] [address] USANitrite Test strip Ql (U)Ordered By: Kassidy Arriaza on 42-39-1797Rxjkhpl Ql (U)NegativeNegNewark HospitalProtein Test strip (U) [Mass/Vol]Ordered By: Kassidy Arriaza on 90-56-8099Txalvnd (U) [Mass/Vol]NegativeNegKettering Health Main Campuspecific gravity Test strip (U) [Rel density]Ordered By: Kassidy Arriaza on 86-27-4831Rizskkas gravity (U) [Rel density]1.0071.001-1.030Gal[facility] Community HospitalUS OB <= 14 weeks fetuson 21-91-7623DD OB <= 14 weeks [facility] [place] [address] [place], [place] [address] Ultrasound Report Signed Patient: Jaz Sanders MR#: [id number] : 1995 Acct:[id number] Age/Sex: 29 / F ADM Date: 10/18/24 Loc: ER Room: Type: [facility] ER Attending Dr: Ordering Provider: [...] Jr., DRenaeORenae 10/18/2024 2:21 PM Dictation Location: [place] [address] Tech: Natalie Haji Transcribed By: MAITE 10/18/24 1421 Dictated By: Sravan Dickinson Jr, DO 10/18/24 1419 Signed By: 10/18/24 1421NoFormerly [facility] Physician GroupUnlisted Lab Teston 10-18-2024 ProMNorth Valley Health Center SystemUrinalysison 42-86-5644Sjqdnvsab,UrineNegativeNormal NegativeThe Anson Community Hospital Physician GroupComment on above:Order Comment: Name Collection Type:: Clean-Voided MidstreamPerformed By: #### UA, CUU #### [place] [address] USAGlucose Ql (U)NormalNormalNormAdventHealth DeLand Physician GroupComment on above:Order Comment: Name Collection Type:: Clean-Voided MidstreamPerformed By: #### UA, CUU #### [place] [address] USANitrite,UrineNegativeNormalNegativeAdventhealth North Pinellas Physician GroupComment on above:Order Comment: Name Collection Type:: Clean-Voided MidstreamPerformed By: #### UA, CUU #### [place] [address] USAOccult Blood,UrineNegativeNormalNegativeThe [facility] Hospital Physician GroupComment on above:Order Comment: Name Collection Type:: Clean- Voided MidstreamResult Comment: PERFORMED BY: [place] [address] PATHOLOGIST TANK CARPENTER DAMIÁN DOSHI M.D.Performed By: #### UA, CUU #### [place] [address] USAProtein,UrineNegativeNormalNegativeAdventhealth North Pinellas Physician GroupComment on above:Order Comment: Name Collection Type:: Clean-Voided MidstreamPerformed By: #### UA, CUU #### [place] [address] USASpecificy [place],Urine1.600Urtccu9.001-1.030Ad[facility] Pinellas Physician GroupComment on above:Order Comment: Name Collection Type:: Clean- Voided MidstreamPerformed By: #### UA, CUU #### [place] [address] USAUrobilinogen,UrineNormalNormalNormalThe [facility] Hospital Physician GroupComment on above:Order Comment: Name Collection Type:: Clean- Voided MidstreamPerformed By: #### UA, CUU #### [place] [address] USAUrine Cultureon 66-94-2667Lhcvzwrl identified Cx Nom (U) <9,000 colonies/ml mixed bacterial skin contaminants 2 Days PERFORMED BY: [place] [address] PATHOLOGIST TANK CARPENTER DAMIÁN DOSHI M.D.NormalAdventhealth North Pinellas Physician GroupComment on above: Performed By: #### CAESAR, CUU #### [facility] [address] [place] [address] USAUrine cultureOrdered By: Kassidy Arriaza on 10-18-2024 Bacteria identified Cx Nom (U)2 DaysGalion Community Hospital Urobilinogen Test strip (U) [Mass/Vol]Ordered By: Kassidy Arriaza on 10-18-2024 Urobilinogen (U) [Mass/Vol]Normal mg/dLNormalGalion Community HospitalpH of Urine by Test stripOrdered By: Kassidy Arriaza on 11-30-0701xH (U)7.0 [pH] Normal5.0-9.0Gal[facility] Community HospitalComment on above:Order Comment: Name Collection Type:: Clean-Voided MidstreamPerformed By: #### CAESAR, CUU #### [facility] [address] [place] [address] USAUnlisted Lab Teston 84-39-8672LnrVgzsly Health SystemBOX TESTon 83-77-3615AIV TEST SENT OUTUNITYNOOH ZevnmvebjyEPY3YPUDPFHVF Healthcare OCH00-32-97KUSV HealthcareUNITY BOX CLINISYSPANISH FORK [facility] HealthcareCoding Summaryon 61-94-9925Qolkgm SummaryHTMLBase 64 RbbkgkkmNZl2pNy+PGhlYWQ+HF8OBHAfP49wyENwxM2dQ9QZYUhTJgzlVPLGTYdFExCpcpImUS1fiZGe ZXJu [file] b2x (more content not included)...[facility] Rittman Medical CenterCompliance Drug Analysis, [facility] 00-96-2256Ktvfydu LCFINALInvalid Interpretation Mercy HealthComment on above:Result Comment: TOXASSURE COMP DRUG ANALYSIS,UR [...] test is not intended to distinguish between wcdhv-7-odlsqidzmjlryrwxusit, the predominant form of THC in most herbal or marijuana-based products, and vwydt-3-rgrjsqwhxocvsxpefrvw. Lamotrigine PRESENT Acetaminophen PRESENT Test Result Flag Units Ref Range Creatinine 45 mg/dL >=20 Declared Medications: Medication list was not provided. For clinical consultation, please call . ToxAssure, ToxAssure FLEX or MAT drug testin -Technical component - Data analysis performed at [facility], [address] [place] [address]. [phone]. Director Of Child Welfare Services César Bains MD. ToxAssure, ToxAssure FLEX or MAT drug testing: -Technical component - Result certification performed at [facility], [address] [place] [address]. [phone] Director Of Child Welfare Services César Bains MD. Performed At: [employer] [address] [id number] Brendon Galan [facility] Ph:[phone] By: #### [id number] ####[facility] (DEFAULT)[address] [place] [address]C Urineon 09-28-2024 UrineMixed skin, or urogenital damián. Clinically insignificantNormalShelby Memorial HospitalComment on above:Performed By: #### [id number] ####[facility] (DEFAULT)[address] [place] [address] 34838GQmLy Screen LCon 09-27-2024 HBsAg Screen LCNegativeInvalid Interpretation CodeNegativeShelby Memorial Hospital Comment on above:Result Comment: Performed At: [place] [id number] [place], [place] [id number] J Luis Gray PhD Ph:[phone] By: #### [id number], 7015410, 0235021, 69577697, 0092764136, 22987616, [id number], [id number]####[facility] (DEFAULT)[address] [place] [address] 27188ZFP 4th Gen Screen w Reflex LCon 41-69-7600MLK Scr 4th Gen LCNon-ReactiveInvalid Interpretation Code Non ReactiveShelby Memorial HospitalComment on above:Result Comment: HIV-1/HIV-2 antibodies and HIV-1 p24 antigen were NOT detected. There is no laboratory evidence of HIV infection. HIV Negative Performed At: [facility] [address] [place], [place] [id number] J Luis Gray PhD Ph:[phone] By: #### [id number] #### [facility] (DEFAULT) [address] [place] [address]PWQ, Rfx Qn RPR/Confirm TP LCon 79-29-2252NLH LC Non-ReactiveInvalid Interpretation CodeNon ReactiveDiley Ridge Medical Center HospitalComment on above:Performed By: #### 53713368, 5159501, 5039884, 65477625, 9232586840, 49964314, 1059761665, 12157165####[facility] (DEFAULT)[address] [place] [address] 97[address]Deoelbb Antibodies, IgG LCon 89-21-2169Ursnlgp Antibodies, IgG LC2.78 indexInvalid Interpretation CodeImmune >0.99[facility] HospitalComment on above:Result Comment: Non-immune <0.90 Equivocal 0.90 - 0.99 Immune >0.99 Performed At: [facility] [address] [place], [place] [id number] J Luis Gray PhD Ph:[phone] By: #### 21466849, 8523190, 5521922, 61185245, 7402498140, 87875453, 9886284435, 95388151####[facility] (DEFAULT)[address] [place] [address] 19069.Auto Diff 1on 68-10-4671Isdr Schuyler %6 %Normal1-12[facility] HospitalComment on above:Performed By: #### 91243270, 9886025, 9331358, 20951290, 7716061790, 59699501, 7900057092, 56926606####[facility] (DEFAULT)[address] [place] [address] Baso Abs#0.0 l36Opyfoc6.0-0.2[facility] HospitalComment on above:Performed By: #### 80644753, 7191195, 0849377, 07709786, 2405735934, 32735321, 7523241574, 67775307####[facility] (DEFAULT)[address] [place] [address] Basophils/100 WBC (Bld)0.1 %Low0.2-2.0[facility] HospitalComment on above: Performed By: #### 83050889, 0581065, 8005705, 52890693, 7656293862, 89548935, 2099378276, 02013788####[facility] (DEFAULT)[address] [place] [address] 65350Tux Abs#0.2 q64Firwhw9.0-0.4[facility] HospitalComment on above: Performed By: #### 10586565, 7491687, 2560663, 97946177, 0981229974, 38583674, 5007168055, 01883133####[facility] (DEFAULT)[address] [place] [address] 43597Cnzaefqsmhb/100 WBC (Bld)2.0 %Normal0.9-4.0[facility] Hospital Comment on above:Performed By: #### 45143740, 7865399, 8552489, 07075681, 8176219952, 98974474, 0495274004, 06654205####[facility] (DEFAULT)[address] [place] [address] 04670Heiyf Abs#2.0 h87Zexrcw9.3-2.9[facility] HospitalComment on above:Performed By: #### 33102549, 8980128, 3520166, 45182981, 5729350490, 56840140, 1866681715, 14453537####[facility] (DEFAULT)[address] [place] [address] 45049Neqevuuuzvc/100 WBC (Bld)26 % Zxvxol19-86Qhlvpwqp HospitalComment on above:Performed By: #### 76435083, 3015785, 0193096, 37477754, 4322762352, 64853548, 3749996400, 11770566 ####[facility] (DEFAULT)[address] [place] [address] 32594Llch Abs# 0.5 p50Ijpkxx2.0-0.8S[facility]by Memorial HospitalComment on above:Performed By: #### 83678672, 8307435, 7944177, 84032919, 0182421551, 81471033, 3596974876, 76413014 ####[facility] (DEFAULT)[address] [place] [address] 50980Heji Abs# 5.1 p77Xlpnux0.5-9.2[facility] HospitalComment on above:Performed By: #### 43394868, 7258698, 9455918, 17074450, 1112821512, 65897381, 4728997580, 11004991 ####[facility] (DEFAULT)[address] [place] [address] 07100 Neutrophils/100 WBC (Bld)66 %Rpbapi62-64Vsdxamyj HospitalComment on above: Performed By: #### 91118325, 8365960, 2209516, 81607362, 4930939478, 70239165, 2040203467, 87308557####[facility] (DEFAULT)[address] [place] [address] 90158WBDIlou 84-68-4044FBQ and Rh group Nom (Bld)Hx Check: Not Found Anti-A: 4+ Anti-B: 0 Anti-D: 2+ DCon: NT A1: 0 B: 2+ ABORh Interp: A POSInvalid Interpretation Mercy HealthComment on above: Performed By: #### 12454075, 7517796, 9284348, 44233305, 4583861739, 56085707, 3894902262, 37282823####[facility] (DEFAULT)[address] [place] [address] 37307DEQP Gelon 30-02-9255NDJG GelNegativeSumma Health W[facility] - Rittman Medical Center Comment on above:Performed By: #### 28431501, 6320446, 5980608, 45689393, 9857918944, 27648233, 6950347207, 76593975####[facility] (DEFAULT)[address] [place] [address] 13112XFK w/ Auto Diffon 76-12-7739Debnjklrodh distribution width (RBC) [Ratio]13.2 %Ixynwh12.5-15.0Shelby Memorial HospitalComment on above:Performed By: #### 25994246, 7465766, 0276640, 10538189, 0965856590, 82427667, 1214743646, 43126507#### [facility] (DEFAULT) [address] [place] [address] 29838Voicecgydy (Bld) [Volume fraction]39.9 %Kitqdc76.7-40.4 [facility] HospitalComment on above:Performed By: #### 65342096, 5643871, 8249771, 39323636, 2112098181, 67786355, 0175810896, 15129492#### [facility] (DEFAULT) [address] [place] [address] 64581Lkyocfeqqg (Bld) [Mass/Vol]13.9 g/iXQwocgp87.3-15.9 [facility] HospitalComment on above:Performed By: #### 87180118, 6071768, 8345371, 58876355, 6975375751, 77876768, 5994723695, 33337952#### [facility] (DEFAULT) [address] [place] [address] 04248Pqx Diff?AutoInvalid Interpretation [facility] Comment on above:Performed By: #### 91283488, 1223814, 5277227, 72104358, 3841635496, 17433021, 4016970004, 38993807#### [facility] (DEFAULT) [address] [place] [address] 51414EHG (RBC) [Entitic mass]29 onTtlgpz69-69Ntxnzbsx Hospital Comment on above:Performed By: #### 75085871, 9870276, 3740836, 29210225, 5291979492, 54284200, 1423760121, 20478158#### [facility] (DEFAULT) [address] [place] [address] 55222WRDO (RBC) [Mass/Vol]35 g/jSIltrai08-42Oljmvblr Hospital Comment on above:Performed By: #### 38525943, 5797902, 3938950, 52176494, 9807266745, 79561464, 8864676619, 99547279#### [facility] (DEFAULT) [address] [place] [address] 66793DUK (RBC) [Entitic vol]84 gCCneofw90-851Ahttubad Hospital Comment on above:Performed By: #### 53764719, 6102262, 8207399, 15723745, 4509757127, 19932587, 9092548533, 75608786#### [facility] (DEFAULT) [address] [place] [address] 01633Oeflilmg768 t48Usikhz426-662Nuiok[place] HospitalComment on above:Performed By: #### 12380900, 7739951, 2224369, 51930701, 3142862124, 87477328, 6528130939, 48521818#### [facility] (DEFAULT) [address] [place] [address] 23507Nscpshxi mean volume (Bld) [Entitic vol]6.3 fLNormal 6.3-10.2MFirelands Regional Medical Center South CampusComment on above:Performed By: #### 59759674, 6730249, 9074685, 15988375, 3565746654, 94181646, 3434028689, 47364140#### [facility] (DEFAULT) [address] [place] [address] 83858GYG1.76 r91Jfuokx5.70-5.30[facility] HospitalComment on above:Performed By: #### 68037317, 0088523, 6941907, 03754067, 3872563590, 80896096, 6792274337, 84367650#### [facility] (DEFAULT) [address] [place] [address] 95275JCA7.8 v98Qwliuq6.5-10.5S[facility] Memorial HospitalComment on above: Performed By: #### 67768724, 8731936, 8447164, 84037481, 0499210332, 55216461, 1225678045, 80122555#### [facility] (DEFAULT) [address] [place] [address] 06775UYA surface Ag IA on 61-68-6741Askwautsg B Surface AntigenNegativeMarion HospitalHIV 1+2 Ab+HIV1 p24 Ag IA Qlon 09-26-2024 HIV 1&2 AB/AGNon-ReactiveMarion HospitalHgbA1c Standardon 09-26-2024.Hb 13.1Invalid Interpretation [facility] HealthComment on above:Performed By: #### 09276041, 1268359, 4194246, 76539564, 6721186653, 66131505, 6175779650, 31789145####[facility] (DEFAULT)[address] [place] [address] 43622 .Hgb A1c0.38 g/dLInvalid Interpretation [facility] HealthComment on above: Performed By: #### 52668732, 3578169, 6954863, 06940593, 0599013232, 47722067, 0687473922, 26033243####[facility] (DEFAULT)[address] [place] [address] 34476Lmozubg [Mass/Vol]91 mg/dLInvalid Interpretation Mer[facility] HealthComment on above:Performed By: #### 75733903, 2430414, 1746088, 39628050, 2022193187, 18848909, 2687928924, 82002743####[facility] (DEFAULT)[address] [place] [address] 42335TvR2o (Bld) [Mass fraction]4.8 % 4.0 - 6.0 %Shelby Memorial HospitalComment on above:Performed By: #### 24433328, 5678521, 3898937, 21135736, 7914243694, 02084313, 3283219505, 25963147 ####[facility] (DEFAULT)[address] [place], [place] [address]Zg Panel Informationon 65-92-9795RizMtqthc Surreal Games SystemProvider Orderson 09-26-2024 Provider C[id number]#1.00OTGTIFFSumma Health Wadsworth - Rittman Medical CenterRubella IGG immune statuson 86-99-2814Mtctuxz immune IgG2.78ProLakehealth Tripoint Medical Center SystemT. pallidum IgG+IgM IA Ql (S)on 74-92-7255ApwsipbyOjm-Reactive ProMNorth Valley Health Center SystemType and screenon 43-51-8549Emo/Rh(D)PositiveProMonroe County Hospital CerecorUltrasound - Officeon 22-55-1680MiiFlpvgq Health SystemHCG ( test) Ql (U)on 01-18-1303Pxphcdctiebmkp and review of laboratory resultsAbnormalNOMS HealthcarePreg Test, UrPositiveNegativeNOMS HealthcareNOMS HealthcareUS OB TRANSVAGINALon 39-97-3567VD OB TRANSVAGINALEXAM: US OB TRANSVAGINAL HISTORY: Dating, [...] II, MD, PHD at 21-Sep-2024 08:26:46 AM [facility] TeleradiologyNormalNot AvailableComment on above:Order Comment: US OB TRANSVAGINAL No LMP recorded.Urinalysis macro (dipstick) panel (U)on 96-96-0069Jfnokygdw, UA NegativeNegative - 4(70) +++ mg/dLNOMS HealthcareBlood, [...] HealthcareUrobilinogen, UA0.20.2 - 12 mg/dLNOMS HealthcareNOMS HealthcareCNNURSEon 51-00-5507LQMCCTT Nurse Visit (SHERLEYIAV) JAZ SANDERS ([id number]) 1995 F Date Time Provider Department 09/03/24 10:[address] [place] TORREYV During your visit today, we recorded the following information about you: Manisha Weaver APRN.METAL CUT OFF SAW TENDER 09/03/2024 5:42 PM Signed Jaz Sanders here [...] 2024 5:39 PM Referring Provider: MELODIE HERNANDEZ [[id number]] Allergies As of Date: 09/03/2024 (Not on File) Date Reviewed: 08/20/2024 Reviewed by: Melodie Hernandez APRN.CNP - Fully Assessed Visit Diagnosis:Early stage of (HCC) [Z34.90] Order(s):OBSTETRIC ULTRASOUND [facility] [[id number]] Order #: [id number]. #:[id number]: 1 Prescriptions as of 09/03/2024 - buPROPion [...] (None) Encounter Status:Closed by BRADFORD DOSS on 09/03/24NoSelect Medical Specialty Hospital - Cincinnati Northamination level ultrasoundon 09-03-2024 Indication Viability, Repeat Impression - Single, live, intrauterine . - An intrauterine gestational sac with a yolk sac and pole is present. - [place] rump length measurement is consistent with the [...] Lt ovary: Visualized Performed By: Nina Farnsworth; [facility] Read By: Bradford Doss M.D.MATERNAL MEDICINECleveland Clinic Mercy HospitalRadiology Study observation (narrative)[facility]cy HospitalCNNURSEon 94-96-7284BIGCHJVTnvsr Visit (REIBD) JAZ SANDERS ([id number]) 1995 F Date Time Provider Department 08/28/24 11:10 AM US TECH 2 [facility] BEAC REIBD During your visit today, we recorded the following information about you: Melodie Hernandez, RISK MANAGEMENT INTERN.METAL CUT OFF SAW TENDER 08/30/2024 4:36 PM Signed Jaz Sanders is [...] scan next week as scheduled Melodie Hernandez APRN.METAL CUT OFF SAW TENDER Mikey Torres MD 08/30/2024 4:36 PM Signed Viable ratliff IUP Size equal Date. Plan: patient to follow up with her ob for care. Stacy Banuelos MD Referring Provider: MELODIE HERNANDEZ [[id number]] Allergies As of Date: 08/28/2024 (Not on File) Date Reviewed: 08/20/2024 Reviewed by: Melodie Hernandez APRN.METAL CUT OFF SAW TENDER - Fully Assessed Visit Diagnosis: resulting from assisted reproductive technology in first trimester ([facility]) [O09.811] Order(s):OBSTETRIC ULTRASOUND [facility] [[id number]] Order #: [id number]. #:[id number]: 1 Prescriptions as of 08/30/2024 - buPROPion [...] Encounter Status:Closed by MIKEY HENLEY on 08/30/24[facility]amination [facility] ultrasoundon 08-28-2024 Indication Viability Impression - Single, live, intrauterine . - An intrauterine gestational sac with a yolk sac and embryo is present. - [place] rump length measurement is consistent with the [...] Chavez RDMS Read By: Mikey Torres M.D.MATERNAL MEDICINECleveland Clinic Mercy Hospital Radiology Study observation (narrative)[facility] Mercy HospitalCNPNon 49-83-1503TSKY Telephone (REIBD) JAZ SANDERS ([id number]) 1995 F Date Time Provider Department 08/24/24 [...] Date Reviewed: 08/20/2024 Reviewed by: Melodie Hernandez, MELY.METAL CUT OFF SAW TENDER - Fully Assessed Reason for Visit: Patient [...] (None) Encounter Status:Closed by ARMINDA WARD on 08/24/24[facility] 81-81-6304QTGKWmzlfnrhe (REIBD) JAZ SANDERS ([id number]) 1995 F Date Time Provider Department 08/23/24 MELODIE HERNANDEZ During your visit today, we recorded the following information about you: Angella Mccarthy 08/23/2024 10:39 AM Signed Name: Jaz Sanders called today. : 1995 (home) [phone] (cell) Reason for call: pt called today informing the nurse she has been experiencing pain of level 4 from 1-10. Pt has been experiencing pain for 2 day. 5 weeks today. The patients preferred pharmacy has been captured for this encounter? Angella [employer] David, Melodie Keene APRN.CNP 08/24/2024 5:58 PM [...] slot. Call to patient needed: no [employer], Lana 08/25/2024 8:37 AM Signed Pt is scheduled on 09/03/2024. Melodie Hernandez APRN.CNP 08/27/2024 11:51 AM Signed Addended by: MELODIE HERNANDEZ on: 08/27/2024 11:51 AM Modules accepted: Orders Allergies As of Date: 08/23/2024 (Not on File) Date Reviewed: 08/20/2024 Reviewed by: Melodie Hernandez APRN.CNP - Fully Assessed Reason for Visit: Pain [78] Primary Visit Diagnosis:Early stage of (HCC) [Z34.90] Order(s):OBSTETRIC ULTRASOUND [facility] [[id number]] Order #: [id number]: 1 FUTURE Prescriptions as of 08/27/2024 - [...] (None) Encounter Status:Closed by MELODIE HERNANDEZ on 08/24/24[facility] Summaryon 57-74-7097Xylcsj SummaryMLBase 64 AjxfiuqcLUw0mMl+PGhlYWQ+TN0ZPBGqN24kdZZcdC9qS1DTGVlATimqPJNFEHoKKpRemqWuYK7sqKEk ZXJu [file] b2x (more content not included)...[facility] HospitalCoding Summaryon 60-53-5954Ekskdj SummaryHTMLBase 64 FdmedfwtMSo7dEb+PGhlYWQ+RL9UOBIwO16pjZXrmY1dD5NSLWaUFlqnCYHZZJuBUcYkuwSwHQ9loVSi ZXJu [file] b2x (more content not included)...[facility] HospitalCoding SummaryMLBase 64 RfpdrbfeVLf0kJt+PGhlYWQ+DJ5NKNYiN40hlJIbjK7tW6LDBKyPLvdsBOSBKQfRWaTmytRyWL8orGGm ZXJu [file] b2x (more content not included)...[facility] HospitalProvider [place] 50-76-0473Wzjnpvlw [id number]#1.00OTGTIFF [facility]itt[facility] Medical CenterhCG Quantitativeon 66-66-0051nJK Pcevjqhuqrao360.7 mIU/mL High0.0-0.6MFirelands Regional Medical Center South CampusComment on above:Result Comment: Post-Menopausal Reference Range is: 0.1-11.6 mIU/mLPerformed By: #### [id number] #### [facility] (DEFAULT) [address] [place] [address] 02789NVKOzc 37-22-5368EBGOIzkjrzccd (REIBD) JAZ SANDERS ([id number]) 1995 F Date Time Provider Department 08/16/24 MELODIE HERNANDEZ During your visit today, we recorded the following information about you: Angella Mccarthy 08/16/2024 12:31 PM Signed Name: Jaz Lynda called today. : 1995 (home) [phone] (cell) Reason for call: pt called that she got positive test, she has been having having cramping since last night , it happens every hours for couple minutes. The patients preferred pharmacy has been captured for this encounter? yes Angella [employer] Laborer Daniel Hanna APRN.CNP 08/16/2024 5:28 PM Signed Called patient back to phone number listed in [facility]-no answer. Lm for patient to look out for [employer] message. Daniel Hanna APRN.JARROD August 16, 2024 [...] Text Encounter Status:Closed by DANIEL HANNA on 08/16/24[facility] HospitalSabra 18-06-8390HDSUMdywjfoyd (REIBD) JAZ SANDERS ([id number]) 1995 F Date Time Provider Department 08/15/24 [...] Date Reviewed: 05/09/2024 Reviewed by: Melodie Hernandez, RISK MANAGEMENT INTERN.METAL CUT OFF SAW TENDER - Fully Assessed Reason for Visit: Patient [...] (None) Encounter Status:Closed by MELODIE HERNANDEZ on 08/15/24[facility] Medical CenterProvider Orderson 08-19-6706Hmiwntwl Orders [id number]#1.00OTGTMercy Health St. Elizabeth Youngstown HospitalhCG Quantitativeon 59-93-4436nRI Ntcdtqeyupos756.6 mIU/mLHigh0.0-0.6MFirelands Regional Medical Center South CampusComment on above:Result Comment: Post-Menopausal Reference Range is: 0.1-11.6 mIU/mLPerformed By: #### [id number] #### [facility] (DEFAULT) [address] [place] [address] 64033AHDCco 32-76-1849KVNTIpbauhnmm (REIBD) JAZ SANDERS ([id number]) 1995 F Date Time Provider Department 08/13/24 MELODIE HERNANDEZ During your visit today, we recorded the following information about you: Arminda Ward RN 08/13/2024 11:19 AM Signed Letters sent. sent to patient Arminda Ward RN August 13, 2024 11:19 AM Allergies As of Date: 08/13/2024 (Not on File) Date Reviewed: 05/09/2024 Reviewed by: Melodie Hernandez, RISK MANAGEMENT INTERN.METAL CUT OFF SAW TENDER - Fully Assessed Reason for Visit: Wants hcg levels sent to [facility] / lives far away [Other] Prescriptions [...] Text Encounter Status:Closed by ARMINDA WARD on 08/13/24[facility] Medical CenterProvider [place] 26-44-6764Pfkfzxhw Orders [id number]#1.00OTPomerene HospitalhCG Quantitativeon 80-35-4615aLM Rjksmzgbqvjv21.6 mIU/mLWeirton Medical Center0.0-0.6MFirelands Regional Medical Center South Campus Comment on above:Result Comment: Post-Menopausal Reference Range is: 0.1-11.6 mIU/mLPerformed By: #### [id number] #### [facility] (DEFAULT) [address] [place] [address] 78427YFBNzz 85-34-4900UQQUIvoawc Visit (REIBD) JAZ SANDERS ([id number]) 1995 F Date Time Provider Department 07/31/24 3:00 PM MELODIE HERNANDEZ REARLET During your visit today, we recorded the following information about you: Last Period 07/19/24 Mustapha Tello MA 07/31/2024 3:12 PM Addendum Patient verified by full name and date of . Jaz Sanders is here today for an IUI. LMP: 07/19/2024 Natural cycle IUI Timed With: Ovulation Predictor Kit , Date: 07/30/2024 Classroom Coordinator offered: Patient declines Mustapha Tello MA July 31, 2024 3:12 PM Dominguez Barry 09/05/2024 10:45 PM Signed IUI specimen released to provider Dominguez Barry July 31, 2024 3:24 PM Dominguez Barry 09/05/2024 10:45 PM Signed IUI Cryobio Donor # [id number] Pre: frozen washed specimen Post: 82 M/ml, [...] 3. Cycle Day: Last menstrual period: 07/19/2024 [place] Protocol: UNIVERSAL PROTOCOL / SAFETY CHECKLIST Procedure [...] (None) Encounter Status:Closed by MELODIE HERNANDEZ on 09/05/24[facility] HospitalOVOffice Visit (ANDRBE) JAZ SANDERS ([id number]) 1995 F Date Time Provider Department 07/31/24 2:30 PM ANDROLOGY SENIOR GAMEMASTER [facility] During your visit today, we recorded the following information about you: Dominguez Barry 07/31/2024 3:26 PM Signed Thaw for IUI. Dominguez Barry Referring Provider: SELF [[id number]] Allergies As of Date: 07/31/2024 (Not on File) Date Reviewed: 05/09/2024 Reviewed by: Melodie Hernandez, RISK MANAGEMENT INTERN.METAL CUT OFF SAW TENDER - Fully Assessed Primary Visit Diagnosis:Procreative management [...] (None) Encounter Status:Closed by DOMINGUEZ BARRY on 07/31/24[facility] Medical CenterCNPNon 16-23-9543JVYCRcmwycvaz (REIBD) JAZ SANDERS ([id number]) 1995 F Date Time Provider Department 07/30/24 MELODIE HERNANDEZ During your visit today, we recorded the following information about you: Sathyamanisha Manisha 07/30/2024 3:16 PM Signed N- ivf Pt has questions regarding IUI Melodie Hernandez APRN.CNP 07/30/2024 6:00 PM Signed patient's OPK today was dark but not positive Plan: test again tomorrow. 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, schedule IUI the same day Melodie Hernandez APRN.CNP July 30, 2024 6:00 PM Allergies As of Date: 07/30/2024 (Not on File) Date Reviewed: 05/09/2024 Reviewed by: Melodie Hernandez APRN.CNP - Fully Assessed Reason for Visit: Patient Question [2897] Prescriptions as of 07/30/2024 - naltrexone 50 [...] Encounter Status:Closed by MELODIE HERNANDEZ on 07/30/24[facility] Hospitalmanisha 28-49-3345GGXWNjkyge Visit (REIBD) JAZ SANDERS ([id number]) 1995 F Date Time Provider Department 07/07/24 [...] Cycle Day: 14 Last menstrual period: 06/24/2024 [place] Protocol: UNIVERSAL PROTOCOL / SAFETY CHECKLIST Procedure [...] Gonzalez 07/19/2024 7:50 AM Signed IUI Cryobio #[id number] Washed frozen specimen Post: 31 m/ml, 77% Insem#: 10.8 million Referring Provider: DANIEL HANNA [[id number]] Allergies As of Date: 07/07/2024 (Not on File) Date Reviewed: 05/09/2024 Reviewed by: Melodie Hernandez APRN.METAL CUT OFF SAW TENDER - Fully Assessed Primary Visit Diagnosis:Encounter for [...] (None) Encounter Status:Closed by MIKEY HENLEY on 07/19/24[facility] (ANDRBE) JAZ SANDERS ([id number]) 1995 F Date Time Provider Department 07/07/24 9:30 AM [facility]ROLOG[facility] SENIOR [facility]AST[facility]ANDERBIL[facility] During your visit today, we recorded the following information about you: Nichelle Gonzalez 07/07/2024 9:41 AM Signed Thaw for IUI Nichelle Gonzalez Referring Provider: DANIEL HANNA [[id number]] Allergies As of Date: 07/07/2024 (Not on File) Date Reviewed: 05/09/2024 Reviewed by: Melodie Hernandez APRN.METAL CUT OFF SAW TENDER - Fully Assessed Primary Visit Diagnosis:Procreative management [...] (None) Encounter Status:Closed by NICHELLE GONZALEZ on 07/07/24[facility] HospitalSabra 91-38-8392SVYOMaaxwhdiu (REIBD) JAZ SANDERS ([id number]) 1995 F Date Time Provider Department 07/06/24 [...] Date Reviewed: 05/09/2024 Reviewed by: Melodie Hernandez APRN.METAL CUT OFF SAW TENDER - Fully Assessed Reason for Visit: Patient [...] (None) Encounter Status:Closed by BECKI ISAACS on 07/06/24[facility] Medical CenterXavier 21-59-8300XSDOVqtbprchj (REIBD) JAZ SANDERS ([id number]) 1995 F Date Time Provider Department 07/05/24 [...] Date Reviewed: 05/09/2024 Reviewed by: Melodie Hernandez APRN.METAL CUT OFF SAW TENDER - Fully Assessed Reason for Visit: re [...] (None) Encounter Status:Closed by ARMINDA WARD on 07/06/24[facility] 38-93-4002MSWIJrnutluvh (REIBD) JAZ SANDERS ([id number]) 1995 F Date Time Provider Department 07/04/24 [...] Signed Ignacio Guy MD to Jamel Skylar Roach 07/05/24 9:05 AM Cervicalpolyp does not need to be removed. 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 Dr. [...] (None) Encounter Status:Closed by MELODIE HERNANDEZ on 07/04/24[facility] Pelvison 07-04-2024 Indication infertility testing Impression [...] Aceves RDMS Read By: Ignacio Guy M.D.MATERNAL MEDICINECleveland Clinic Mercy HospitalRadiology Study observation (narrative)[facility] HospitalCNPNon 73-66-1855UABOBmeddohrd (REIBD) JAZ SANDERS ([id number]) 1995 F Date Time Provider Department 06/29/24 MELODIE HERNANEDZ During your visit today, we recorded the following information about you: Lupillo Meyerra 06/29/2024 8:53 AM Signed Pt had iui 06/09, pt isnt . Please follow up Cd1 06/23 . Pt had hematoma after iui Patricia Snow 07/02/2024 9:18 AM Signed Pt wants to know if she has to have us before iui this weekend Melodie Hernandez APRN.METAL CUT OFF SAW TENDER 07/03/2024 12:34 PM Signed unable to reach, left message to return my call Melodie Hernandez APRN.METAL CUT OFF SAW TENDER July 03, 2024 12:33 PM Patricia Snow 08/13/2024 8:52 AM Signed Pos preg test Arminda Ward RN 08/13/2024 9:17 AM Signed See TE encounter dated 08/13 Arminda Ward RN August 13, 2024 9:16 AM Allergies As of Date: 06/29/2024 (Not on File) Date Reviewed: 05/09/2024 Reviewed by: Melodie Hernandez APRN.METAL CUT OFF SAW TENDER - Fully Assessed Reason for Visit: 06/09 [...] (None) Encounter Status:Closed by ARMINDA WARD on 08/13/24[facility] 41-21-3104RHUDSanxbc Visit (REIBD) JAZ SANDERS ([id number]) 1995 F Date Time Provider Department 06/09/24 11:00 AM IGNACIO GUY During your visit today, we recorded the following information about you: Nichelle Gonzalez 06/09/2024 12:30 PM Signed IUI specimen released to provider Nichelle Gonzalez June 09, 2024 11:24 AM Nichelle Gonzalez 06/09/2024 12:30 PM Signed IUI Cryobio #: [id number] Washed frozen sample Post: 42 m/ml, 74% [...] Cycle Day: 13 Last menstrual period: 05/28/2024 [place] Protocol: UNIVERSAL PROTOCOL / SAFETY CHECKLIST Procedure [...] was discussed with the patient or authorized customer solutions representative. The patient or authorized customer solutions representative has agreed to proceed with the sensitive examination. (Sensitive examination includes inspection and/or palpation of the breasts, pelvis, prostate and anorectal regions) Patient declined vertica architect. Vidhi Sheldon MD IUI IUI Date: 06/09/24 [...] stopped. Will get pelivc scan here at [facility] if not with this IUI prior pt proceeding with another attmept at IUI. Ignacio Guy MD June 09, 2024 12:30 PM SIGNATURE: Vidhi Sheldon MD PATIENT NAME: Jaz Sanders DATE: June 09, 2024 TIME: 12:01 PM Referring Provider: DANIEL HANNA [[id number]] Allergies As of Date: 06/09/2024 (Not on File) Date Reviewed: 05/09/2024 Reviewed by: Melodie Hernandez APRN.METAL CUT OFF SAW TENDER - Fully Assessed Primary Visit Diagnosis:Female infertility [...] (None) Encounter Status:Closed by IGNACIO GUY on 06/09/24[facility] Visit (ANDRBE) JAZ SANDERS ([id number]) 1995 F Date Time Provider Department 06/09/24 10:30 AM ANDROLOGY SENIOR GAMEMASTER [facility] During your visit today, we recorded the following information about you: Nichelle Gonzalez 06/09/2024 11:48 AM Signed Thaw for IUI Nichelle Gonzalez Referring Provider: DANIEL HANNA [[id number]] Allergies As of Date: 06/09/2024 (Not on File) Date Reviewed: 05/09/2024 Reviewed by: Melodie Hernandez APRN.METAL CUT OFF SAW TENDER - Fully Assessed Primary Visit Diagnosis:Procreative management [...] (None) Encounter Status:Closed by NICHELLE GONZALEZ on 06/09/24[facility] Summaryon 52-92-2061Smaxkl SummaryGUNNISON VALLEY HOSPITALBase 64 XofuantiFMw8vHs+PGhlYWQ+CT7CLSCxN40xsVUbbD3lH1RSEPmJAuxsMFZGNAxYElLonlZpVI6cdKFq ZXJu [file] b2x (more content not included)...[facility] Medical CenterProgesterone LCon 11-99-4978Dtohbzxhbphl LC7.6 ng/mLInvalid Interpretation [facility] Comment on above:Result Comment: Follicular phase 0.1 - 0.9 Luteal phase 1.8 - 23.9 Ovulation phase 0.1 - 12.0 First trimester 11.0 - 44.3 Second trimester 25.4 - 83.3 Third trimester 58.7 - 214.0 Postmenopausal 0.0 - 0.1 Performed At: [facility] [address], [place] [id number] J Luis Gray PhD Ph:[phone] By: #### [id number] ####[facility] (DEFAULT)[address] [place] [address]Gyricgbg [place] 29-46-7013Siptgxmu [id number]#1.00OTChildren's Hospital of ColumbusPhysical Therapy Noteon 40-93-1503Hmpvqtto Therapy Note [id number]#1.00OTPomerene Hospital 25([place])D3 [facility] Centeron 925434-fiaxwslaycfakc D3 [Mass/Vol]28.8 ng/mLLow 31.0-80.0Av HospitalComment on above:Order Comment: Specimen Type: BLOOD SPECIMEN Ordering Facility: [facility] Address: [address] [place], [place] [address]Result Comment: Classification of 25 [place] Vitamin D status: Deficiency/Insufficiency: < or = 30 ng/ml. Sufficiency/Optimal Levels: 31-80 ng/mL Toxicity: > 100 ng/mL. Test performed by chemiluminescent immunoassay.Performed By: #### 38561-6 #### [facility] CLIA [id number] [address] [place] [address] [place] [facility] MEM[facility]IAL HOSPITALC. trachomatis+N. gonorrhoeae DNA AC+probe Ql (Unsp spec)on 04-02-2024. trachomatis rRNA AC+probe Ql (Unsp spec)Not detectedNormalNot detectedAv HospitalComment on above:Order Comment: Specimen Type: BLOOD SPECIMEN Ordering Facility: [facility] Address: [address] [place], [place] [address]Performed By: #### 49456-4 #### [facility] CLIA [id number] [address] [place] [address] [place]. gonorrhoeae rRNA AC+probe Ql (Unsp spec)Not detectedNormalNot detectedAv HospitalComment on above:Order Comment: Specimen Type: BLOOD SPECIMEN Ordering Facility: [facility] Address: [address] [place], [place] [address]Performed By: #### 09193-1 #### [facility] CLIA [id number] [address] [place] [address] [place] AMERICACARRIER SCREEN, EXPANDEDon 57-14-7005EPCNQTY SCREEN RESULTSView results in Scanned Documents link when available.NormalAv HospitalComment on above:Order Comment: Specimen Type: BLOOD SPECIMEN Ordering Facility: [facility] Address: [address] [place], [place] [address]Performed By: #### 32448-2 #### [facility] CLIA [id number] [address] [place] [address] [place] AMERICACMV IgG Qnon 25-58-6999HCC IGG QUALNegativeNormalNegativeAv HospitalComment on above:Order Comment: Specimen Type: BLOOD SPECIMEN Ordering Facility: [facility] Address: [address] [place], [place] [address]Result Comment: No serological evidence of past exposure to Cytomegalovirus. Cannot exclude recent infection if the specimen collected within 4-6 weeks after infection.Performed By: #### 1989-3RIO, 7852-7, 7853-5, VZVG2 #### [facility] CLIA [id number] [address] [place] [address] [place] AMERICACMV IgG SerPl-aCncon 50-23-5173KJW IgG Qn<0.20NormalAvon HospitalComment on above:Order Comment: Specimen Type: BLOOD SPECIMEN Ordering Facility: [facility] Address: [address] [place], [place] [address]Result Comment: The magnitude of the measured result is not indicative of the amount of antibody present. U/mL values are interpreted as follows: Negative <0.6 Equivocal 0.6 to <0.70 Positive >=0.70Performed By: #### 1989-3RIO, 7852-7, 7853-5, VZVG2 #### [facility] CLIA [id number] [address] [place] [address] [place] AMERICACMV IgM Qnon 98-46-4519GWI IGM, QUALNegativeNormalNegativeAvon HospitalComment on above:Order Comment: Specimen Type: BLOOD SPECIMEN Ordering Facility: [facility] Address: [address] [place], [place] [address]Result Comment: No serological evidence of recent exposure to Cytomegalovirus.Performed By: #### 1989-3, RUBIGG, 7852-7, 7853-5, VZVG2 #### [facility] CLIA [id number] [address] [place] [address] [place] AMERICAHBV core Ab Ser Qlon 32-33-9919NRJ core Ab Ql (S)NegativeNormalNegativeAvon HospitalComment on above: Order Comment: Specimen Type: BLOOD SPECIMEN Ordering Facility: [facility] Address: [address] [place], [place] [address]Result Comment: No evidence of current or past infection with Hepatitis B virus. Should recent infection be suspected, repeat testing may be considered 3-4 weeks after this draw.Performed By: #### 42182-6, 5195-3, 33787-9, 01414-1 #### [facility] CLIA [id number] [address] [place] [address] [place] AMERICAHBV surface Ag Ser Qlon 09-22-3397UXB surface Ag Ql (S)NegativeNormalNegativeAvon HospitalComment on above:Order Comment: Specimen Type: BLOOD SPECIMEN Ordering Facility: [facility] Address: [address] [place], [place] [address]Performed By: #### 44247-9, 5195-3, 73678-1, 40014-1 #### [facility] CLIA [id number] [address] [place] [address] [place] AMERICAHCV Ab Ser Qlon 04-02-2024 HCV Ab Ql (S)NegativeNormalNegativeAvon HospitalComment on above:Order Comment: Specimen Type: BLOOD SPECIMEN Ordering Facility: [facility] Address: [address] [place], [place] [address]Result Comment: The result suggests no evidence of active infection with Hepatitis C virus. Should recent infection be suspected, repeat testing may be considered 4-6 weeks after this draw. Performed By: #### 87859-6 #### [facility] CLIA [id number] [address] [place] [address] [place] AMERICAHIV 1+2 Ab IA Qlon 19-40-2093ZIC 1 and 2 Ab IA.rapid Nom (S/P/Bld)NormalSteward Health Care SystemComment on above:Order Comment: Specimen Type: BLOOD SPECIMEN Ordering Facility: [facility] Address: [address] [place], [place] [address]Result Comment: Test not indicated. Performed By: #### 08484-5, 5195-3, 25086-8, 54437-0 #### [facility] CLIA [id number] [address] [place] [address] STATES OF AMERICAHIV 1+2 Ab+HIV1 p24 Ag IA Ql Non-ReactiveNormalNonreactiveSteward Health Care SystemComment on above:Order Comment: Specimen Type: BLOOD SPECIMEN Ordering Facility: [facility] Address: [address] [place], [place] [address]Performed By: #### 75975-5, 5195-3, 12257-7, 29979-2 #### [facility] CLIA [id number] [address] [place] [address] STATES OF AMERICAHIV immunoassay testing algorithm interpretation (S/P/Bld) [Interp][facility] Children's HospitalComment on above: Order Comment: Specimen Type: BLOOD SPECIMEN Ordering Facility: [facility] Address: [address] [place], [place] [address]Result Comment: No evidence of HIV- 1 or HIV-2 infection. Should recent infection be suspected, repeat testing may be considered 2-3 weeks after this draw. Dolores Rev. Code 3701.243(E): This information has been [...] HIV test results or diagnoses.Performed By: #### 71591-4, 5195-3, 39644-8, 57373-5 #### [facility] CLIA [id number] [address] [place] [address] [place] ZCKIBPFCgM2n (Bld)on 04-02-2024 Average glucose Estimated from glycated hemoglobin (Bld) [Mass/Vol]85 mg/dL NormalAv HospitalComment on above:Order Comment: Specimen Type: BLOOD SPECIMEN Ordering Facility: [facility] Address: [address] [place], [place] [address]Result Comment: eAG: (Estimated average glucose) is a calculated value from HgbA1c and is customer solutions representative of the average blood glucose level in the last 2-3 month period.Performed By: #### 60524-9 #### [facility] CLIA [id number] [address] [place] [address] [place] EORLNKWFrQ5g (Bld) [Mass fraction] 4.6 %Normal4.3-5.6Avon HospitalComment on above:Order Comment: Specimen Type: BLOOD SPECIMEN Ordering Facility: [facility] Address: [address] [place], [place] [address]Result Comment: [place] Diabetes [employer] guidelines indicate that patients with HgbA1c in the range 5.7-6.4% are at increased risk for development of diabetes, and intervention by lifestyle modification may be beneficial. HgbA1c greater or equal to 6.5% is considered diagnostic of diabetes.Performed By: #### 54451-3 #### [facility] CLIA [id number] [address] [place], [place] [address] [place] AMERICARUBELLA IGG ANTIBODYon 79-70-8455EYADMBZ IGG AB, QUALPositiveNormalPositiveAv HospitalComment on above:Order Comment: Specimen Type: BLOOD SPECIMEN Ordering Facility: [facility] Address: [address] [place], [place] [address]Result Comment: The result suggests recent or past exposure to Rubella virus or history of Rubella vaccination. Positive result may also be seen due to presence of passively-transferred antibodies. Please correlate with patient's history.Performed By: #### 1989-3, RUBIGG, 7852-7, 7853-5, VZVG2 #### [facility] CLIA [id number] [address] [place] [address] [place] AMERICAReagin and Treponema pallidum IgG and IgM [Interp]on 04-02-2024T. pallidum IgG+IgM IA Ql (S) Non-ReactiveNormalNonreactiveSteward Health Care SystemComment on above:Order Comment: Specimen Type: BLOOD SPECIMEN Ordering Facility: [facility] Address: [address] [place], [place] [address]Performed By: #### 20381-0, 5195-3, 85515-6, 69766-2 #### [facility] CLIA [id number] [address] [place] [address] [place] AMER[place]AReagin+T pallidum IgG+IgM SerPl-Impon 40-31-3827Inwhhx and Treponema pallidum IgG and IgM [Interp]Cannot exclude recent Treponemal infection if specimen collected within 7-10 days after appearance of suspect lesions or 2-3 weeks after an exposure. Clinical correlation is required.NormalLeesburg HospitalComment on above:Order Comment: Specimen Type: BLOOD SPECIMEN Ordering Facility: [facility] Address: [address] [place], [place] [address]Performed By: #### 78249-4, 5195-3, 84051-6, 47796-9 #### [facility] CLIA [id number] [address] [place] [address] [place] OF AMERICATYPE + SCREEN PRENATALon 66-33-0116XCKHEgsxuwPkyz HospitalComment on above:Order Comment: Specimen Type: BLOOD SPECIMEN Ordering Facility: [facility] Address: [address] [place], [place] [address]Performed By: #### TSPN #### [facility] [place] [id number] [address] [place] [address] [facility] H[facility]ITALRh Nom (Bld)[facility] Comment on above:Order Comment: Specimen Type: BLOOD SPECIMEN Ordering Facility: [facility] Address: [address] [place], [place] [address]Performed By: #### TSPN #### [facility] [place] [id number] [address] [place] [address] [facility] H[facility]PITALTYPE AND SCREEN AZVZABDABU74/19/2024 23:59[facility]'s HospitalComment on above:Order Comment: Specimen Type: BLOOD SPECIMEN Ordering Facility: [facility] Address: [address] [place], [place] [address]Performed By: #### TSPN #### [facility] [id number] [address] [place] [address] [facility] HOSPITALVARICELLA ZOSTER IGGon 04-02-2024 VARICELLA ZOSTER IGG, QUALPositiveNormalPositiveLeesburg HospitalComment on above: Order Comment: Specimen Type: BLOOD SPECIMEN Ordering Facility: [facility] Address: [address] [place], [place] [address]Result Comment: The result suggests recent or past exposure to Varicella-Zoster virus or chickenpoxvaccination or zoster vaccination. Positive result may also be seen due to presence of passively-transferred antibodies. Please correlate with patient's history. Performed By: #### 70064-6 #### [facility] CLIA [id number] [address] [place] [address] STATES OF AMERICACoding Summaryon 03-20-2024 Coding SummaryMLBase 64 MygsycjlJPq3pQn+PGhlYWQ+OK4UFZMbH96wlLPtcM4pC7OCFFgRTdhpFXUANRsVUqOhdvMaFJ6oqOQs ZXJu [file] JSc (more content not included)...[facility] HospitalProvider Orderson 81-35-9019Yarlsren [id number]#1.00OTGTIFF [facility].Auto Diff 1on 76-84-5956Yzar Schuyler %3 %Normal1-12Magrcincinnati va medical center HospitalComment on above:Performed By: #### [id number], 2130602, 8942744 #### [facility] (DEFAULT) [address] [place] [address] 68901Uyff Abs#0.0 d55Kwqzah8.0-0.2[facility] HospitalComment on above:Performed By: #### [id number], 8562124, 8492270 #### [facility] (DEFAULT) [address] [place] [address] 14490Usfelncji/100 WBC (Bld)0.3 %Normal0.2-2.0[facility] Hospital Comment on above:Performed By: #### [id number], 6335300, 2874793 #### [facility] (DEFAULT) [address] [place] [address] 67422Vge Abs#0.0 w97Vdwali2.0-0.4[facility] HospitalComment on above:Performed By: #### 45495793, 7106106, 3545163 #### [facility] (DEFAULT) [address] [place] [address] 18150Dbuosavzvkf/100 WBC (Bld)0.1 %Low0.9-4.0[facility] Hospital Comment on above:Performed By: #### [id number], 8514097, 0361389 #### [facility] (DEFAULT) [address] [place] [address] 57904Xhyum Abs#1.5 v65Wtgiwr5.3-2.9[facility] HospitalComment on above:Performed By: #### [id number], 5279535, 1909219 #### [facility] (DEFAULT) [address] [place] [address] 50267Mblilrgrjlw/100 WBC (Bld)16 %Arpuev84-89Lbvsqsrn Hospital Comment on above:Performed By: #### [id number], 8218706, 2707016 #### [facility] (DEFAULT) [address] [place] [address] 03505Bqcd Abs#0.3 a45Paidqi5.0-0.8[facility] HospitalComment on above:Performed By: #### 15379521, 7864436, 5822245 #### [facility] (DEFAULT) [address] [place] [address] 90716Lvio Abs#7.8 o63Whmqqv5.5-9.2[facility] HospitalComment on above:Performed By: #### 62496653, 0119975, 3523356 #### [facility] (DEFAULT) [address] [place] [address] 81958Tmypauaurgc/100 WBC (Bld)81 %Fpxckl23-23Umqjunhy Hospital Comment on above:Performed By: #### 21658170, 7520896, 5822442 #### [facility] (DEFAULT) [address] [place] [address] 50579NCX w/ Auto Diffon 81-16-7967Uvpjysmjfzf distribution width (RBC) [Ratio]13.9 %Hupevt63.5-15.0[facility] HospitalComment on above: Performed By: #### [id number], 0850705, 5238982 #### [facility] (DEFAULT) [address] [place] [address] 89226Srmtvyfuqv (Bld) [Volume fraction]45.3 %High33.7-40.4 [facility] HospitalComment on above:Performed By: #### 99856192, 5482513, 1068343 #### [facility] (DEFAULT) [address] [place] [address] 19237Qzsxmxwflg (Bld) [Mass/Vol]15.5 g/uWMytxxr94.3-15.9 [facility] HospitalComment on above:Performed By: #### 60792567, 3654543, 6977816 #### [facility] (DEFAULT) [address] [place] [address] 88351Yni Diff?AutoInvalid Interpretation CodeShelby Memorial Hospital Comment on above:Performed By: #### [id number], 9971989, 7880900 #### [facility] (DEFAULT) [address] [place] [address] 58611DSP (RBC) [Entitic mass]29 yeCdiddn21-10Zrobgqba Hospital Comment on above:Performed By: #### [id number], 6599873, 1467452 #### [facility] (DEFAULT) [address] [place] [address] 63191RHHI (RBC) [Mass/Vol]34 g/kFHuyuoz92-65Ptzklkqc Hospital Comment on above:Performed By: #### [id number], 6619156, 8086844 #### [facility] (DEFAULT) [address] [place] [address] 08934XZD (RBC) [Entitic vol]86 cJJhzxke30-510Psqjofsw Hospital Comment on above:Performed By: #### 18447349, 2398448, 3822660 #### [facility] (DEFAULT) [address] [place] [address] 23565Vtnyrdkz139 x98Zinbkp289-476Ejjvzdzo HospitalComment on above:Performed By: #### 49853578, 3204034, 9707952 #### [facility] (DEFAULT) [address] [place] [address] 46189Rogvmcvb mean volume (Bld) [Entitic vol]6.8 fLNormal 6.3-10.2[facility] HospitalComment on above:Performed By: #### [id number], 1330889, 0553087 #### [facility] (DEFAULT) [address] [place] [address] 68140SRL0.28 z16Vhuatb4.70-5.30[facility] HospitalComment on above:Performed By: #### 23187094, 6320429, 1776392 #### [facility] (DEFAULT) [address] [place] [address] 20575LEC7.6 s50Wfvuxz3.5-10.5[facility] HospitalComment on above: Performed By: #### 13870154, 1666740, 8894657 #### [facility] (DEFAULT) [address] [place] [address] 78344Pzdsrpcsig 05-22-6721Pjjwdjpe [Mass/Vol]20.6 ng/mLNormal 12.0-150.0[facility] HospitalComment on above:Performed By: #### 39153079, 3128562, 6332196 #### [facility] (DEFAULT) [address] [place] [address] 70039Ajnt Levelon 19-94-4715Bxlp [Mass/Vol]61.0 ug/dLNormal 28.0-170.0[facility] HospitalComment on above:Performed By: #### [id number] ####[facility] (DEFAULT)[address] [place] [address] [id number] 30-27-7723224576WNG ID: [id number] Author: IGNACIO GUY MD Service: ? Author [...] for three cycles. They will meet with IMPORT SPECIALIST to review the IUI checklist and sign consents. I spent a total of 45 minutes on the date of the service which included preparing to see the patient, vsir-ok-jqqg patient care, completing clinical documentation, counseling and educating the patient/family/caregiver, and ordering medications, tests, or procedures. 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 They will meet with IMPORT SPECIALIST to review the IUI checklist and sign consents. I spent a total of 45 minutes on the date of the service which included preparing to see the patient, hcoa-rf-afsf patient care, com (more content not included)...NormalMercy Health – The Jewish HospitalP,APTIMA HPV,AGE GDLNon 02-28-[birth year]24 AGE GDLN ACOG TESTINGNote.NOMS HealthcareComment on above:TESTS RESULT FLAG UNITS REF RANGE LAB Clinician Provided Cytology Information Source.............Cervix;Endocervix No. of containers..01 ThinPrep Vial Age Algo ACOG Ezequiel... 01 FLAG LEGEND: L-Low Normal,H-High Normal,LL-Alert Low,HH-Alert High <-Panic Low,>-Panic High,A-Abnormal,AA-Critical Abnormal Performed at: 01 =G [facility] [place] [address] Dagmar Love MD, IGP, RFX APTIMA HPV ASCUNote.NOMS HealthcareComment on above:TESTS RESULT FLAG UNITS REF RANGE LAB DIAGNOSIS: 02 NEGATIVE FOR INTRAEPITHELIAL LESION OR MALIGNANCY. Specimen adequacy: 02 Satisfactory for evaluation. Endocervical and/or squamous metaplastic cells (endocervical component) are present. Performed by: 02 Edel Sewell, Legal Recovery Specialist ([facility]) . 02 Note: Note 02 The Pap [...] High,A-Abnormal,AA-Critical Abnormal Performed at: 02 [facility] [address] [place] [address] Dagmar Love MD, Performed at: =G - [facility] [address], [place] [id number] Director Of Child Welfare Services: Dagmar Love MD, Phone: [phone] Performed at: - [address] [id number] Director Of Child Welfare Services: Dagmar Love MD, Phone: [phone] [facility] CERVIX ENDOCERVIX [facility] Summaryon 51-83-4936Djrfrd SummaryMLBase 64 FgptavzyGFq3dCm+PGhlYWQ+NS4MJJEnH79goKHggT4zN6JZANlDFepqZYDFFXsENwEikgDgCU6rqWXd ZXJu [file] [facility] (more content not included)...[facility] papilloma virus 16+18+31+33+35+39+45+51+52+56+58+59+66+68 DNA [Presence] in Addi 55-20-0092YPZ 16+18+31+33+35+39+45+51+52+56+58+59+66+68 DNA Probe+sig amp Ql (Cvx)Human papilloma virus 16+18+31+33+35+39+45+51+52+56+58+59+66+68 DNA [Presence] in Cer. [facility] HospitalComment on above:TESTS RESULT FLAG UNITS REF RANGE LAB DIAGNOSIS: 02 NEGATIVE FOR INTRAEPITHELIAL LESION OR MALIGNANCY.Specimen adequacy: 02 Satisfactory forevaluation. Endocervical and/or squamous metaplastic cells (endocervical component) are present.Performed by: 02 Edel Sewell, Legal Recovery Specialist ([facility]). 02Note: Note 02 The Pap smear is [...] <-Panic Low,>- Panic High,A-Abnormal,AA-Critical Abnormal Performed at:[address] [address] Dagmar Love MD, Uxklgjlnx at: = - [facility] [id number] Director: Dagmar Love MD, Phone: [phone] at: [facility] [address] [id number] Director: Dagmar Love MD, Phone: [phone] Panel Informationon 29-57-7411Pdxqhoavc Lab Test Patient AgeNotcolt.[facility] HospitalComment on above:TESTS RESULT FLAG UNITS REF RANGE LAB Clinician Provided Cytology Information Source.............Cervix;Endocervix No. of containers..01 ThinPrep VialAge Olafo HUMAOG Ezequiel... FLAG LEGEND: L-Low Normal,H-High Normal,LL-Alert Low,HH-Alert High <-Panic Low,>-Panic High,A- Abnormal,AA-Critical Abnormal Performed a t:01 =G [address] [address] Dagmar Love MD, .Auto Diff 1on 44-06-0680Qhym Schuyler %6 %Normal1-12 [facility] HospitalComment on above:Performed By: #### [id number] #### [facility] (DEFAULT) [address] [place] [address] 92201Suec Abs#0.0 p66Kxmeui4.0-0.2Magrcincinnati va medical center HospitalComment on above:Performed By: #### [id number] #### [facility] (DEFAULT) [address] [place] [address] 63887Finfvuaaj/100 WBC (Bld)0.3 %Normal0.2-2.0[facility] Hospital Comment on above:Performed By: #### [id number] #### [facility] (DEFAULT) [address] [place] [address] 55992Duf Abs#0.2 j26Sugnhx2.0-0.4[facility] HospitalComment on above:Performed By: #### [id number] #### [facility] (DEFAULT) [address] [place] [address] 28056Ipgqujepslt/100 WBC (Bld)3.4 %Normal0.9-4.0[facility] HospitalComment on above:Performed By: #### [id number] #### [facility] (DEFAULT) [address] [place] [address] 99706Orvan Abs#2.4 w97Vasgpv1.3-2.9[facility] HospitalComment on above:Performed By: #### [id number] #### [facility] (DEFAULT) [address] [place] [address] 33554Fktlpdmxrge/100 WBC (Bld)34 %Tmqmzg90-62Kabngekn Hospital Comment on above:Performed By: #### [id number] #### [facility] (DEFAULT) [address] [place] [address] 48709Yjkm Abs#0.4 m46Pdqvpe5.0-0.8[facility] HospitalComment on above:Performed By: #### [id number] #### [facility] (DEFAULT) [address] [place] [address] 63390Zdey Abs#4.0 s03Ekbmmt5.5-9.2[facility] HospitalComment on above:Performed By: #### [id number] #### [facility] (DEFAULT) [address] [place] [address] 28325Xfdrwchhqhg/100 WBC (Bld)56 %Czdpgg40-34Tyqrrymi Hospital Comment on above:Performed By: #### [id number] #### [facility] (DEFAULT) [address] [place] [address] 56262YNP w/ Auto Diffon 71-70-1491Vwodhoohjbj distribution width (RBC) [Ratio]14.0 %Xcqbzj79.5-15.0[facility] HospitalComment on above: Performed By: #### [id number] #### [facility] (DEFAULT) [address] [place] [address] 23511Eqyoteuqqx (Bld) [Volume fraction]41.7 %High33.7-40.4 [facility] HospitalComment on above:Performed By: #### [id number] #### [facility] (DEFAULT) [address] [place] [address] 97202Tyaywgsnoe (Bld) [Mass/Vol]14.1 g/fLCamsrm92.3-15.9 [facility] HospitalComment on above:Performed By: #### [id number] #### [facility] (DEFAULT) [address] [place] [address] 23856Scc Diff?AutoInvalid Interpretation CodeShelby Memorial Hospital Comment on above:Performed By: #### [id number] #### [facility] (DEFAULT) [address] [place] [address] 35330ZGP (RBC) [Entitic mass]29 kgKfcvlh83-00Lgcxjinw Hospital Comment on above:Performed By: #### [id number] #### [facility] (DEFAULT) [address] [place] [address] 73403SWQE (RBC) [Mass/Vol]34 g/pYGoaxex24-39Jmfbchma Hospital Comment on above:Performed By: #### [id number] #### [facility] (DEFAULT) [address] [place] [address] 33124LXB (RBC) [Entitic vol]86 sFRahens70-551Lxksnlgz Hospital Comment on above:Performed By: #### [id number] #### [facility] (DEFAULT) [address] [place] [address] 36546Teiigbnr104 p79Vgzdnj228-155Qlmlpjlt HospitalComment on above:Performed By: #### [id number] #### [facility] (DEFAULT) [address] [place] [address] 06558Wfrbokcx mean volume (Bld) [Entitic vol]6.8 fLNormal 6.3-10.2[facility] HospitalComment on above:Performed By: #### [id number] #### [facility] (DEFAULT) [address] [place] [address] 56662GKB6.84 v72Mtzmhc2.70-5.30[facility] HospitalComment on above:Performed By: #### [id number] #### [facility] (DEFAULT) [address] [place] [address] 53224BJC5.1 d66Ytxftc1.5-10.5[facility] HospitalComment on above: Performed By: #### [id number] #### [facility] (DEFAULT) [address] [place] [address] 21496Grohqjlfcq 53-86-6630Fvlpcpoa [Mass/Vol]15.8 ng/mLNormal 12.0-150.0[facility] HospitalComment on above:Performed By: #### [id number], 7253159, 1009247 #### [facility] (DEFAULT) [address] [place] [address] 40206Gdva Profileon 20-33-5737Mbvb [Mass/Vol]72.0 ug/dLNormal 28.0-170.0[facility] HospitalComment on above:Performed By: #### [id number], 0352629, 8771181 #### [facility] (DEFAULT) [address] [place] [address] 36118Cuxl Sat19 %Vgs48-48Emphhsxc HospitalComment on above: Performed By: #### [id number], 0853443, 7089689 #### [facility] (DEFAULT) [address] [place] [address] 80718DFVI299 mcg/wNPzngxs318-757Wrybrjxq HospitalComment on above:Performed By: #### [id number], 4269702, 8145204 #### [facility] (DEFAULT) [address] [place] [address] 77541Rwvxyvkjcyf [Mass/Vol]274.6 mg/cGQmkdho601.0-382.0[facility] HospitalComment on above:Performed By: #### [id number], 0380921, 1288026 #### [facility] (DEFAULT) [address] [place] [address] 69059Dxuomt Summaryon 03-56-0073Xzbiml SummaryMLBase 64 KakawdmzZAp4vKq+PGhlYWQ+FF0TMKQtP28tkHIbrE7oG2RLZCnXBushUXVDJSxVHwFbtzLeMG5uyPSw ZXJu [file] c (more content not included)...[facility] Medical CenterAmphetamine Screen Ql (U)Ordered By: Andry Lacy on 96-46-7099Rsebeauwwyoc Ql (U)Amphetamines screenNegativeUniversity Hospitals [facility] CenterAmphetamines Ql (U)Negative NegativeGalion Community HospitalBarbiturates [Presence] in Urine by Screen methodOrdered By: Andry Lacy on 80-76-5332Wtmfgleodvzr Screen Ql (U) NegativeNegativeGalion Community HospitalBarbiturates Screen Ql (U) Barbiturates [Presence] in Urine by Screen methodNegNewark HospitalBenzodiazepines Screen Ql (U)Ordered By: Andry Lacy on 16-24-3072Xwwhfiofgokkhwk Ql (U)PositiveHighNegNewark HospitalBenzodiazepines Ql (U)Benzodiazepines [Presence] in Urine by Screen method HighNegNewark HospitalBenzoylecgonine [Presence] in Urine by Screen methodOrdered By: Andry Lacy on 70-53-0216Zfgqcqpjqpzkhii Screen Ql (U)NegativeNegNewark HospitalBenzoylecgonine Screen Ql (U)Benzoylecgonine [Presence] in Urine by Screen methodNegNewark HospitalCannabinoids [Presence] in Urine by Screen methodOrdered By: Andry Lacy on 32-06-7440Ezmnvyjbnoqx Screen Ql (U)PositiveHighAdams County Regional Medical CenterComment on above:These are unconfirmed results and should not be used for legal purposes. Drug Cut-Off Concentration: AMPH 1000 ng/mL LUIS ANTONIO 200 ng/mL JOHN 200 ng/mL COCM 300 ng/mL OP 300 ng/mL PCP 25 ng/mL THC 20 ng/mLCannabinoids Screen Ql (U)Cannabinoids [Presence] in Urine by Screen methodHighNegNewark HospitalComment on above:These are unconfirmed results and should not be used for legal purposes. Drug Cut-Off Concentration: AMPH 1000 ng/mL LUIS ANTONIO 200 ng/mL JOHN 200 ng/mL COCM 300 ng/mL OP 300 ng/mL PCP 25 ng/mL THC 20 ng/mLHCG ( test) IA.rapid Ql (U)Ordered By: Andry Lacy on 53-78-2441BDW ( test) Ql (U)NegativeGalion Community HospitalHCG ( test) Ql (U)Urine human chorionic gonadotropin (hCG) detection by immunoassayGalion Community Hospital Opiates [Presence] in Urine by Screen methodOrdered By: Andry Lacy on 82-09-1942Qlbqfsv Screen Ql (U)NegativeNegativeGalion Community Hospital Opiates Screen Ql (U)Opiates [Presence] in Urine by Screen methodNegative [facility] HospitalPhencyclidine Screen Ql (U)Ordered By: Andry Lacy on 34-38-5248Vdefbqyruapte Ql (U)NegativeNegativeGalion Community HospitalPhencyclidine Ql (U)Phencyclidine [Presence] in Urine by Screen methodNegativeGalion Community HospitalAlanine aminotransferase [Enzymatic activity/volume] in Serum or PlasmaOrdered By: Romeo Santana on 31-25-3392XRR [Catalytic activity/Vol]14 U/L7-52[facility] HospitalAlbumin [Mass/volume] in Serum or Plasma by Bromocresol green (BCG) dye binding methoOrdered By: Romeo Santana on 27-68-4305Fjncqkn BCG dye [Mass/Vol]4.6 g/dL3.5-5.7FSt. Mary's Medical Center, Ironton CampusAlkaline phosphatase [Enzymatic activity/volume] in Serum or PlasmaOrdered By: Romeo Santana on 83-34-0881ZAT [Catalytic activity/Vol]41 U/I20-862LovhcdwcaGalion Community HospitalAspartate aminotransferase [Enzymatic activity/volume] in Serum or PlasmaOrdered By: Romeo Santana on 24-24-4709WAO [Catalytic activity/Vol]13 U/U05-58ZsmutssklGalion Community HospitalBasophils Auto (Bld) [#/Vol]Ordered By: Romeo Santana on 11-28-2023 Basophils (Bld) [#/Vol]0.0 10*3/uL0.0-0.2FSt. Mary's Medical Center, [facility] Campus Basophils/100 WBC Auto (Bld)Ordered By: Romeo Santana on 54-08-3664Iwxfpzkpv/100 WBC (Bld)0.3 %.[facility] Community HospitalBilirubin.total [Mass/volume] in Serum or PlasmaOrdered By: Romeo Santana on 88-70-6536Okqwjlpso [Mass/Vol]0.5 mg/dL0.3-1.0[facility] HospitalCalcium [Mass/volume] in Serum or PlasmaOrdered By: Romeo Santana on 45-44-0521Ylttbfy [Mass/Vol]9.4 mg/dL8.6-10.3 [facility] HospitalCarbon dioxide, total [Moles/volume] in Serum or PlasmaOrdered By: Romeo Santana on 18-53-3009FU6 [Moles/Vol]27.8 mmol/L 21.0-31.0[facility] HospitalChloride [Moles/volume] in Serum or PlasmaOrdered By: Romeo Santana on 57-96-2852Vsdmrigl [Moles/Vol]106 mmol/L98-107 [facility] HospitalCreatinine [Mass/volume] in Serum or Plasma Ordered By: Romeo Santana on 27-32-0984Ibgnrufkpx [Mass/Vol]0.62 mg/dL0.60-1.20 [facility] HospitalEosinophils Auto (Bld) [#/Vol]Ordered By: Romeo Santana on 55-50-2407Mcnckanqidu (Bld) [#/Vol]0.2 10*3/uL0.0-0.45[facility] HospitalEosinophils/100 WBC Auto (Bld)Ordered By: Romeo Santana on 45-59-2065Jqhtvqyjxpy/100 WBC (Bld)3.5 %.[facility] Erythrocyte distribution width Auto (RBC) [Ratio]Ordered By: Romeo Santana on 24-22-2978Nsryaeulrwv distribution width (RBC) [Ratio]14.0 %11.9-15.3FSt. Mary's Medical Center, [facility] CampusGlobulin Calc (S) [Mass/Vol]Ordered By: Romeo Santana on 13-35-9886Nizibksi (S) [Mass/Vol]2.0 g/dLGal[facility] Hospital Glucose [Mass/volume] in Serum or PlasmaOrdered By: Romeo Santana on 11-28-2023 Glucose [Mass/Vol]76 mg/aW74-434YbknhzwaiGalion Community HospitalHematocrit Auto (Bld) [Volume fraction]Ordered By: Romeo Santana on 65-81-6531Qhwftmkzpc (Bld) [Volume fraction]40.1 %34.0-46.4FSt. Mary's Medical Center, Ironton CampusHemoglobin [Mass/volume] in BloodOrdered By: Romeo Santana on 03-64-3429Ntvpqvuhot (Bld) [Mass/Vol]13.6 g/dL11.8-15.4FSt. Mary's Medical Center, Ironton CampusLeukocytes [#/volume] corrected for nucleated erythrocytes in Blood by Automated coun Ordered By: Romeo Santana on 55-10-3101MRK corrected for nucl RBC Auto (Bld) [#/Vol]6.4 10*3/uL3.8-11.6FSt. Mary's Medical Center, Ironton CampusLymphocytes Auto (Bld) [#/Vol]Ordered By: Romeo Santana on 30-22-6354Iimbapswejr (Bld) [#/Vol]2.4 10*3/uL1.00-4.8Galion Community HospitalLymphocytes/100 WBC Auto (Bld) Ordered By: Romeo Santana on 07-84-7507Jesqhioxbhm/100 WBC (Bld)38.3 %.Galion Community HospitalMCH Auto (RBC) [Entitic mass]Ordered By: Romeo Santana on 29-21-8784OGI (RBC) [Entitic mass]29.3 pg24.7-34.3FSt. Mary's Medical Center, Ironton CampusMCHC Auto (RBC) [Mass/Vol]Ordered By: Romeo Santana on 56-09-8294KYTH (RBC) [Mass/Vol]33.8 g/dL32.0-35.0Gal[facility] Community HospitalMCV Auto (RBC) [Entitic vol]Ordered By: Romeo Santana on 37-74-7061RBU (RBC) [Entitic vol]86.7 lC52-959HiojomnbhGalion Community HospitalMonocytes Auto (Bld) [#/Vol]Ordered By: Romeo Santana on 42-89-7654Ajjimcdmt (Bld) [#/Vol]0.4 10*3/uL0.0-0.8Gal[facility] HospitalMonocytes/100 WBC Auto (Bld)Ordered By: Romeo Santana on 31-71-9379Xvwlwkjbv/100 WBC (Bld)5.8 %.[facility] Neutrophils Auto (Bld) [#/Vol]Ordered By: Romeo Santana on 38-72-0938Senqatupqtr (Bld) [#/Vol]3.3 10*3/uL1.8-7.7FSt. Mary's Medical Center, Iront[place] CampusNeutrophils/100 WBC Auto (Bld)Ordered By: Romeo Santana on 47-11-3210Xwokbjbqdad/100 WBC (Bld) 52.1 %.[facility] Community HospitalNo Panel InformationOrdered By: Romeo Santana on 96-09-0387Qzhqjmgod GFR (CKD-EPI)> 60.0 mL/MinGalion Community HospitalPharmacy Creatinine Clearance (ChemN/AFSt. Mary's Medical Center, [place] CampusNucleated erythrocytes [Presence] in Blood by Automated countOrdered By: Romeo Santana on 54-80-5206Fxoqtlfkw RBC Auto Ql (Bld)0.0 /100{WBC}0-0.5FSt. Mary's Medical Center, Ironton CampusPlatelet mean volume Auto (Bld) [Entitic vol]Ordered By: Romeo Santana on 93-04-7755Erfvakbd mean volume (Bld) [Entitic vol]6.8 fL6.3-10.7 [facility] HospitalPlatelets Auto (Bld) [#/Vol]Ordered By: Romeo Santana on 00-54-2148Sbirsbtuq (Bld) [#/Vol]159 10*3/dP449-645AwdxrjtsoGalion Community HospitalPotassium [Moles/volume] in Serum or PlasmaOrdered By: Romeo Santana on 22-40-6286Czdcpzmxd [Moles/Vol]4.2 mmol/L3.5-5.1FSt. Mary's Medical Center, Iront[place] CampusProtein [Mass/volume] in Serum or PlasmaOrdered By: Romeo Santana on 89-76-5336Uxxeono [Mass/Vol]6.6 g/dL6.4-8.9[facility] RBC Auto (Bld) [#/Vol]Ordered By: Romeo Santana on 26-18-0698COI (Bld) [#/Vol] 4.63 10*6/uL3.60-5.00[facility], Cancer Centererum or plasma albumin/globulin mass ratioOrdered By: Romeo Santana on 11-28-2023 Albumin/Globulin [Mass ratio]2.3 {ratio}[facility], Cancer Centererum or plasma anion gap determinationOrdered By: Romeo Santana on 48-33-6096Uffxj gap [Moles/Vol]10.4 mmol/L6.0-15.0[facility], MD, Cancer Centerodium [Moles/volume] in Serum or PlasmaOrdered By: Romeo Santana on 03-47-8860Btynpa [Moles/Vol]140 mmol/B063-708RvdafwxfiGalion Community HospitalUrea nitrogen [Mass/volume] in Serum or PlasmaOrdered By: Romeo Santana on 23-69-4752Hums nitrogen [Mass/Vol]7 mg/dL7-25Gal[facility] HospitalWBC Auto (Bld) [#/Vol]Ordered By: Romeo Santana on 14-69-1491CTP (Bld) [#/Vol]6.4 10*3/uL 3.8-11.6FSt. Mary's Medical Center, [facility]ont[place] CampusCoding Summaryon 18-14-8314Mqwovc SummaryHTMLBase 64 TarnpiaeCKq8wIk+PGhlYWQ+NJ7SIDClQ82baCOcgJ0aZ7COKVeFGbcuIHFVJJmFLjOpeyLqHB7zyECq ZXJu [file] b3J (more content not included)...NormalMagruder HospitalCoding SummaryHTMLBase 64 YwhiwiweICs3uIp+PGhlYWQ+JR9MPJZrK68uxNSwrL7eE8SSCDxWBepxOLGTWTnZGsOmtjZjGX8aeWHh ZXJu [file] b3J (more content not included)...[facility] HospitalProvider Orderson 27-49-6641Effgrbmr [id number]#1.00OTGTIFF [facility] Medical CenterChlamydia/GC Amplification LCon 25-63-1925Edglefqnd trachomatis, AC LCNegativeInvalid Interpretation CodeNegOhio State East Hospital Comment on above:Performed By: #### [id number] #### [facility] (DEFAULT) [address] [place] [address] 09569Giqptijst gonorrhoeae, AC LCNegativeInvalid Interpretation CodeNegOhio State East HospitalComment on above:Result Comment: Performed At: =[facility] [id number] Ivan Calvin MD Ph:[phone] By: #### [id number] #### [facility] (DEFAULT) [address] [place] [address] 37122Tzkmdyk Formson 79-50-8876Jdskqxk Forms [id number]#1.00OTGTIFFSumma Health Wadsworth - Rittman Medical CenterED Note-Nursingon 74-31-5122CK Note-NursingFluconazole 150mg tab [facility] Patient contacted and notified of the results of her culture and the prescription that was sent forher. Instructions on how to take the medication was given, patient verbalized understanding [facility].Auto Diff 1on 94-90-4138Jwch Schuyler %9 %Normal1-12[facility] Comment on above:Performed By: #### [id number], [id number], [id number] #### [facility] (DEFAULT) [address] [place] [address] 54853Yklp Abs#0.0 c46Tjkexc3.0-0.2Moh[facility] HospitalComment on above:Performed By: #### [id number], [id number], 6250976 #### [facility] (DEFAULT) [address] [place] [address] 93379Yvmngfcdw/100 WBC (Bld)0.2 %Normal0.2-2.0[facility] Comment on above:Performed By: #### [id number], [id number], 0664173 #### [facility] (DEFAULT) [address] [place] [address] 12975Gqj Abs#0.3 e84Ntpdtk2.0-0.4[facility] HospitalComment on above:Performed By: #### [id number], 0891140, 3348669 #### [facility] (DEFAULT) [address] [place] [address] 49334Zrlvuuuzmqk/100 WBC (Bld)9.0 %High0.9-4.0[facility] Comment on above:Performed By: #### [id number], 9881549, 5871002 #### [facility] (DEFAULT) [address] [place] [address] 66209Roruj Abs#0.4 s95Rta8.3-2.9[facility] HospitalComment on above:Performed By: #### [id number], [id number], 5113921 #### [facility] (DEFAULT) [address] [place] [address] 97201Mcdfkglydol/100 WBC (Bld)12 %Osc20-82HptgfirvShelby Memorial Hospital Comment on above:Performed By: #### [id number], 9207989, 9170661 #### [facility] (DEFAULT) [address] [place] [address] 22961Cuqn Abs#0.3 d25Rhfuxj7.0-0.8[facility] HospitalComment on above:Performed By: #### [id number], 0524280, 1877046 #### [facility] (DEFAULT) [address] [place] [address] 34030Limt Abs#2.4 d08Oruwyf9.5-9.2[facility] HospitalComment on above:Performed By: #### [id number], 4207112, 1695623 #### [facility] (DEFAULT) [address] [place] [address] 91085Ieftobiacaa/100 WBC (Bld)70 %Dcqoef28-02Qovuhzsp Hospital Comment on above:Performed By: #### [id number], 6928232, 9506345 #### [facility] (DEFAULT) [address] [place] [address] 25998E Genitalon 11-02-2023 GenitalHeavy growth of Yeast No CARLOS performed on this organism No growth of GC at 3 days. 4+ Gram Positive Rods Few Yeast No WBC's seen. Gram Negative Diplococci not seen.[facility] Medical CenterComment on above: Performed By: #### [id number] #### [facility] (DEFAULT) [address] [place] [address] 89725GAH w/ Auto Diffon 32-10-7147Wwappwurrrk distribution width (RBC) [Ratio]13.7 %Ehjkgy51.5-15.0[facility] HospitalComment on above: Performed By: #### [id number], 9351333, 3477886 #### [facility] (DEFAULT) [address] [place], [place] [address]Hematocrit (Bld) [Volume fraction]40.5 %High33.7-40.4 [facility] HospitalComment on above:Performed By: #### [id number], 6784849, 3391488 #### [facility] (DEFAULT) [address] [place], [place] [address]Hemoglobin (Bld) [Mass/Vol]13.7 g/aEOwyxxh35.3-15.9 [facility] HospitalComment on above:Performed By: #### [id number], 4105685, 7164398 #### [facility] (DEFAULT) [address] [place] [address] 24632Syz Diff?AutoInvalid Interpretation [facility] Comment on above:Performed By: #### [id number], 3350348, 5254863 #### [facility] (DEFAULT) [address] [place] [address] 71031LLF (RBC) [Entitic mass]29 uhBkjiju37-05Ivbwjwkt Hospital Comment on above:Performed By: #### [id number], 6817491, 8505049 #### [facility] (DEFAULT) [address] [place] [address] 96382IKNE (RBC) [Mass/Vol]34 g/aHOjiiul34-23Ygpqaecm Hospital Comment on above:Performed By: #### [id number], 6165824, 9271303 #### [facility] (DEFAULT) [address] [place] [address] 04645AVP (RBC) [Entitic vol]85 vDRyrniu65-672Cnhnceyn Hospital Comment on above:Performed By: #### [id number], 4717210, 8085808 #### [facility] (DEFAULT) [address] [place] [address] 02614Dzhlocek199 j19Xpy711-107Safmwawm HospitalComment on above:Performed By: #### [id number], 7282016, 8066210 #### [facility] (DEFAULT) [address] [place] [address] 97288Tqslpebi mean volume (Bld) [Entitic vol]7.0 fLNormal 6.3-10.2[facility] HospitalComment on above:Performed By: #### [id number], 8034946, 4701314 #### [facility] (DEFAULT) [address] [place] [address] 30048SOQ6.74 x83Lulaut0.70-5.30[facility] HospitalComment on above:Performed By: #### [id number], 0272318, 7472456 #### [facility] (DEFAULT) [address] [place] [address] 86986WZI1.5 x05Exuguc5.5-10.5[facility] HospitalComment on above: Performed By: #### [id number], 0330432, 7966639 #### [facility] (DEFAULT) [address] [place] [address] 40735AKQ Standardon 79-00-0281bPEI Non AA>60Invalid Interpretation [facility] HealthComment on above:Performed By: #### [id number], 4506258, 5507953 #### [facility] (DEFAULT) [address] [place] [address] 81852wEKO AA>60Invalid Interpretation [facility] Comment on above:Performed By: #### [id number], 8675770, 0491819 #### [facility] (DEFAULT) [address] [place] [address] 41697Iboyupq [Mass/Vol]4.1 g/dLNormal3.5-5.0[facility] Comment on above:Performed By: #### [id number], 5430347, 3967588 #### [facility] (DEFAULT) [address] [place] [address] 99882Iqpafrd/Globulin [Mass ratio]1.7 {ratio}Normal1.4-2.6 [facility] HospitalComment on above:Performed By: #### [id number], 8257765, 5774972 #### [facility] (DEFAULT) [address] [place] [address] 21483Pqs Phos40 IU/VGxqmyt66-86Nxfwhqbn HospitalComment on above:Performed By: #### [id number], 7919136, 4845639 #### [facility] (DEFAULT) [address] [place] [address] 82366JEW [Catalytic activity/Vol]20.0 U/XOabgep60.0-54.0 [facility] HospitalComment on above:Performed By: #### [id number], 5095260, 2859503 #### [facility] (DEFAULT) [address] [place] [address] 53245Ugxtf gap [Moles/Vol]9.5 mmol/LNormal5.0-19.0[facility] HospitalComment on above:Performed By: #### [id number], 8296407, 1826562 #### [facility] (DEFAULT) [address] [place] [address] 07896GZY [Catalytic activity/Vol]19 U/AFcjkch19-30Cxzgwwoo HospitalComment on above:Performed By: #### [id number], 8408669, 8950194 #### [facility] (DEFAULT) [address] [place] [address] 08852Atds Total0.7 mg/dLNormal0.3-1.2[facility] HospitalComment on above:Performed By: #### [id number], 2361162, 2716874 #### [facility] (DEFAULT) [address] [place] [address] 31600Mwddkkv [Mass/Vol]8.4 mg/dLLow8.9-10.3[facility] Hospital Comment on above:Performed By: #### [id number], 0709014, 5867940 #### [facility] (DEFAULT) [address] [place] [address] 42364Exeboyjh [Moles/Vol]109 mmol/BBzartr682-020Yzoioswu HospitalComment on above:Performed By: #### [id number], 6377860, 7638885 #### [facility] (DEFAULT) [address] [place] [address] 96939TN9 [Moles/Vol]21 mmol/SOaybgq35-20Wbstjnel Hospital Comment on above:Performed By: #### [id number], 7927007, 4930851 #### [facility] (DEFAULT) [address] [place] [address] 75374Twtsctkwqq [Mass/Vol]0.71 mg/dLNormal0.60-1.30[facility] HospitalComment on above:Performed By: #### 56537565, 4759507, 9579677 #### [facility] (DEFAULT) [address] [place] [address] 65447Ueghuejy (S) [Mass/Vol]2.4 g/dLNormal1.5-4.3MFirelands Regional Medical Center South CampusComment on above:Performed By: #### 00300874, 6849993, 8084440 #### [facility] (DEFAULT) [address] [place] [address] 68902Izqbcbe [Mass/Vol]95.0 mg/fDYqbdpa29.0-118.0[facility] HospitalComment on above:Performed By: #### 30295487, 1457144, 9428432 #### [facility] (DEFAULT) [address] [place] [address] 69346Xywbvupdgg992 mOsm/LInvalid Interpretation CodeDiley Ridge Medical Center HospitalComment on above:Performed By: #### [id number], 2364319, 0291633 #### [facility] (DEFAULT) [address] [place] [address] 85499Vldzjxyop [Moles/Vol]3.5 mmol/LLow3.6-5.1[facility] Hospital Comment on above:Performed By: #### [id number], 8062575, 3892191 #### [facility] (DEFAULT) [address] [place] [address] 91320Pmfdzvz [Mass/Vol]6.5 g/dLNormal6.5-8.1MFirelands Regional Medical Center South Campus Comment on above:Performed By: #### [id number], 9745751, 6711939 #### [facility] (DEFAULT) [address] [place] [address] 63540Qmmxcl [Moles/Vol]136.0 mmol/AKhmqyu425.0-144.0[facility] HospitalComment on above:Performed By: #### 39259076, 6135958, 1902352 #### [facility] (DEFAULT) [address] [place] [address] 24699Sdwb nitrogen [Mass/Vol]7 mg/dLLow8-26[facility] Comment on above:Performed By: #### [id number], 9730317, 5618486 #### [facility] (DEFAULT) [address] [place] [address] 51462Nyos nitrogen/Creatinine [Mass ratio]9.8 mg/mgNormal 4.6-16.2MFirelands Regional Medical Center South CampusComment on above:Performed By: #### [id number], 1046993, 0683866 #### [facility] (DEFAULT) [address] [place] [address] 90756CM Abdomen/Pelvis w/ Contraston 54-00-6328YC Abdomen/Pelvis w/ ContrastEXAMINATION: CT Abdomen/Pelvis w/ Contrast, [...] Monteiro DO 11/02/23 3:37 pm Technologist: DEYVI DUFFYMarietta [facility] Clinical Summaryon 26-21-1785BE Clinical SummaryMarietta [facility] Emergency Department [address] [place] [address] [id number] ED Clinical Summary PERSON INFORMATION Name: JAZ SANDERS Age: 28 Years Sex: FEMALE : 1995 MRN: Acct#: Visit Reason: Abdominal pain; Nausea; FLANK/HIP PAIN, FEVER Arrival: 11/02/2023 07:57:28 Discharge: 11/02/2023 13:31:00 LOS: 000 05:34 Check In: 11/02/2023 07:57:28 Checkout:11/02/2023 13:31:00 [facility] [address] PCP: Amanda Ford CNP PROVIDER INFORMATION Provider [...] Follow-Up: With: Address: When: Amanda Ford CNP [address] [place] [address] Within 3 to 5 days DIAGNOSIS: 1:Hip pain Patient Understands: Yes - Patient/family/caregiver verbalizes understanding of instructions given Comment:[facility] Patient Summaryon 02-26-7684CJ Patient Summary [facility] - Emergency Department [address] [place] [address] PATIENT DISCHARGE INSTRUCTIONS Patient Information Name: JAZ SANDERS Age: 28 Years Date of : 1995 Reason For Visit: Abdominal pain; Nausea; FLANK/HIP PAIN, FEVER Arrival Time: 11/02/2023 07:57:28 Primary Care Physician: Amanda Ford CNP Attending Physician: Narda Phillips MD Comment: Visit Diagnosis: Diagnoses This Visit Abdominal pain ([id number]) Hip pain (M25.559) Nausea ([id number]) The Pharmacy at [facility] is open Tuesday through Tuesday from 9A [...] alcohol and/or drug addiction problems; contact the [facility] 08/11 Crisis Hotline -Text 2XQXD pn [phone]. If you received any narcotics, sedation, or [...] documents With: Address: When: Amanda Ford CNP [facility] [place] [address] Within 3 to 5 days Medication Information: The exam and treatment you received today in the [facility] Emergency Department were for an urgent problem and are not intended as complete care. It is important for you to follow up with a doctor, nurse practitioner, or physician?s oceanographer assistant for ongoing care. If your symptoms [...] so we can reach you if necessary. [facility] Emergency Department has provided you with a complete list of medications post discharge. Please inform your hat renovator/provider of your visit and for further instruction on these medications. Any specific questions regarding your chronic medications and dosages should be discussed with your primary care physician(s) and/or pharmacist. New Medications [facility] [address] [place], [place] [id number], [phone] cyclobenzaprine (cyclobenzaprine 10 mg oral tablet) 1 [...] Refills: 0. lidocaine topic (more content not included)...[facility] Medical CenterExtra Green on 05-69-9195Mwng CollectedYesInvalid Interpretation [facility] Comment on above:Performed By: #### [id number], 8360489, 0789409 #### [facility] (DEFAULT) [address] [place] [address] 06849Xcvhjxogf Test Urine 1on 11-02-2023U PregNegativeOhiohealth Grove City Methodist HospitalComment on above:Performed By: #### [id number] #### [facility] (DEFAULT) [address] [place] [address] 94095C Preg Internal ControlPassSumma Health Wadsworth - Rittman Medical CenterComment on above:Performed By: #### [id number] #### [facility] (DEFAULT) [address] [place] [address] 62752TB Hvmwv6mb 53-69-2277UZ BacteriaTraceSumma Health Wadsworth - Rittman Medical CenterComment on above:Order Comment: Urinalysis Microscopic order added on by uromovie Rules system.Performed By: #### [id number] #### [facility] (DEFAULT) [address] [place] [address] 21804PV Mucous1+[facility] Rittman Medical CenterComment on above:Order Comment: Urinalysis Microscopic order added on by [employer] Expert Rules system. Performed By: #### [id number] #### [facility] (DEFAULT) [address] [place] [address] 77470PU RBCNone SeenPike Community Hospital HospitalComment on above: Order Comment: Urinalysis Microscopic order added on by [employer] Expert Rules system.Performed By: #### [id number] #### [facility] (DEFAULT) [address] [place] [address] 72440YX Squam EpiFewNoWVUMedicine Barnesville Hospital HospitalComment on above: Order Comment: Urinalysis Microscopic order added on by Discern Expert Rules system.Performed By: #### [id number] #### [facility] (DEFAULT) [address] [place] [address] 59402JE WBCNone SeenPike Community Hospital HospitalComment on above: Order Comment: Urinalysis Microscopic order added on by [employer] Expert Rules system.Performed By: #### [id number] #### [facility] (DEFAULT) [address] [place] [address] 69740KZ w Culture if Ind Standardon 56-60-4529Wehljmnsto UA NormalDiley Ridge Medical Center HospitalComment on above:Performed By: #### [id number] #### [facility] (DEFAULT) [address] [place] [address] 55095Mtcwi (U)Dark YellowNoRiverview Health InstituteComment on above:Performed By: #### [id number] #### [facility] (DEFAULT) [address] [place] [address] 20389Tzqpfcy?Not IndicatedInvalid Interpretation [facility] HospitalComment on above:Result Comment: Result created by rule GL_MAGR_ADD_UA_CULTPerformed By: #### [id number] #### [facility] (DEFAULT) [address] [place] [address] 91164Etshgfc (U) [Mass/Vol]NegativePike Community Hospital Hospital Comment on above:Performed By: #### [id number] #### [facility] (DEFAULT) [address] [place] [address] 73678Qrtatyi Ql (U)TRACENormalMagruder HospitalComment on above:Performed By: #### [id number] #### [facility] (DEFAULT) [address] [place] [address] 74091Kqete?IndicatedInvalid Interpretation CodeTngruder HospitalComment on above:Result Comment: Result created by rule GL_MAGR_ADD_UA_MICROPerformed By: #### [id number] #### [facility] (DEFAULT) [address] [place] [address] 66849IZ BilirubinMODERATEAbnormalTngrcincinnati va medical center HospitalComment on above:Performed By: #### [id number] #### [facility] (DEFAULT) [address] [place] [address] 84653GU BloodNegativeNormalNEGATIVEMagrcincinnati va medical center HospitalComment on above:Performed By: #### [id number] #### [facility] (DEFAULT) [address] [place] [address] 84219WO ClaritySL CLOUDYAbnormalCLEARMagrcincinnati va medical center HospitalComment on above:Performed By: #### [id number] #### [facility] (DEFAULT) [address] [place] [address] 83432LQ Leuk EstNegativeNormalNEGATIVEDiley Ridge Medical Center HospitalComment on above:Performed By: #### [id number] #### [facility] (DEFAULT) [address] [place] [address] 33842DH NitriteNegativeNormalNEGATIVETngrcincinnati va medical center HospitalComment on above:Performed By: #### [id number] #### [facility] (DEFAULT) [address] [place] [address] 32232CO pH6.7Frqddb7-0Iexsskvr HospitalComment on above: Performed By: #### [id number] #### [facility] (DEFAULT) [address] [place] [address] 86667QY Iceybkc72QuzqtbllTLBTHFLNKkkevcrf HospitalComment on above:Performed By: #### [id number] #### [facility] (DEFAULT) [address] [place] [address] 56115KJ Spec Grav>=1.908Kqihmf1.001-1.035[facility] Hospital Comment on above:Performed By: #### [id number] #### [facility] (DEFAULT) [address] [place] [address] 50256MW Urobilinogen1.0 mg/dLNormal0.2-1.0[facility] Comment on above:Performed By: #### [id number] #### [facility] (DEFAULT) [address] [place] [address] 50114Oigqi SourceClean CatchSumma Health Wadsworth - Rittman Medical CenterComment on above:Performed By: #### [id number] #### [facility] (DEFAULT) [address] [place] [address] 73158Zmo [facility].on [phone] Deborah Heart and Lung CenterComment on above:Performed By: #### [id number] #### [facility] (DEFAULT) [address] [place] [address] 05504Zphhmf Summaryon [id number] SummaryHTMLBase 64 PlpgemvoZYj5yFu+PGhlYWQ+TO7AGKIbY48kzFVdaK2lM3VGGAjQTekkWOVYHAhAJjYkjiIoZW4apVGe ZXJu [file] [facility] [place] (more content not included)...[facility] Rittman Medical CenterBasophils Auto (Bld) [#/Vol]on 06-63-7835Pzjjtwvkc (Bld) [#/Vol]0.0 x100.0-0.2FSt. Mary's Medical Center, [facility]ont[facility] CampusBasophils/100 WBC Auto (Bld)on 50-75-4325Mqktxbiyy/100 WBC (Bld) 0.3 %0.2-2.0[facility] HospitalEosinophils/100 WBC Auto (Bld)on 88-37-4991Glrdjvmpxri/100 WBC (Bld)2.7 %0.9-4.0[facility] Erythrocyte distribution width Auto (RBC) [Ratio]on 07-58-6052Roaheicvgng distribution width (RBC) [Ratio]14.1 %11.5-15.0[facility] Hematocrit Auto (Bld) [Volume fraction]on 54-91-1817Pkplzgduya (Bld) [Volume fraction]41.4 %High33.7-40.4FSt. Mary's Medical [facility], [facility] CampusHemoglobin [Mass/volume] in Bloodon 22-24-8834Ylqllwszvu (Bld) [Mass/Vol]14.0 g/dL11.3-15.9 [facility] HospitalIron binding capacity [Mass/volume] in Serum or Plasmaon 54-37-8569Ywhy binding capacity [Mass/Vol]405 mcg/bCWntj138-386 [facility] HospitalIron saturation [Mass Fraction] in Serum or Plasmaon 90-22-9667Zeci saturation [Mass fraction]12 %Dnf39-60PpexsrxlkGalion Community HospitalLaboratory - Chemistry and Chemistry - challengeon 75-43-5655Xdwv [Mass/Vol]48.0 ug/dL28.0-170.0[facility] HospitalTransferrin [Mass/Vol]289.2 mg/dL192.0-382.0[facility] HospitalLeukocytes [#/volume] corrected for nucleated erythrocytes in Blood by Automated counon 27-68-1699NNY corrected for nucl RBC Auto (Bld) [#/Vol]6.4 x103.5-10.5FSt. Mary's Medical Center, [facility] CampusLymphocytes Auto (Bld) [#/Vol]on 70-21-2639Kwlkssrqeeg (Bld) [#/Vol]2.2 x101.3-2.9[facility] HospitalLymphocytes/100 WBC Auto (Bld)on 51-32-6718Xqgljfpoamw/100 WBC (Bld)34 %14-48[facility] HospitalMCH Auto (RBC) [Entitic mass]on 23-89-0956BWH (RBC) [Entitic mass] 29 xs12-30UaygbbgfiGalion Community HospitalMCHC Auto (RBC) [Mass/Vol]on 29-24-2388HJUH (RBC) [Mass/Vol]34 g/dX78-12UoyqoqyyoGalion Community HospitalMCV Auto (RBC) [Entitic vol]on 25-58-4491BLM (RBC) [Entitic vol]87 qI07-167ZkaaoidxnGalion Community HospitalMonocytes Auto (Bld) [#/Vol]on 96-66-2244Lpogdtcmk (Bld) [#/Vol]0.4 x100.0-0.8[facility] HospitalMonocytes/100 WBC Auto (Bld)on 60-38-3813Xcbiaoogj/100 WBC (Bld)6 %1-12[facility] HospitalNeutrophils Auto (Bld) [#/Vol]on 16-76-8840Fkleyjbytrv (Bld) [#/Vol]3.7 x101.5-9.2FSt. Mary's Medical Center, [facility] CampusNeutrophils/100 WBC Auto (Bld)on 51-73-1884Jsofpcqnwha/100 WBC (Bld)57 %44-88[facility] HospitalNo Panel Informationon 00-97-4517Dba Manual DifferentialAuto AutoGalion Community HospitalEosinophils # (Auto)0.2 x100.0-0.4FSt. Mary's Medical Center, [place] CampusPlatelet mean volume Auto (Bld) [Entitic vol]on 48-80-3024Fszimhpn mean volume (Bld) [Entitic vol]6.7 fL6.3-10.2FSt. Mary's [facility], [facility] [facility] Platelets Auto (Bld) [#/Vol]on 95-03-6082Idbzuqoou (Bld) [#/Vol]179 d36443-179 [facility] HospitalRBC Auto (Bld) [#/Vol]on 13-53-3833BSA (Bld) [#/Vol]4.76 x103.70-5.30[facility] HospitalFollitropin [Units/volume] in Serum or PlasmaOrdered By: LEOBARDO BARROSO on 06-23-2022 Follitropin Qn6.2 m[IU]/mLGalion Community HospitalComment on above: FEMALE NORMALS (PREMENOPAUSE) MID-FOLLICULAR PHASE: 3.9-8.8 mIU/mL MID-CYCLE PEAK: 4.5-22.5 mIU/mL MID-LUTEAL PHASE: 1.8-5.1 mIU/mLFEMALE NORMALS (POSTMENOPAUSE): 16.7-113.6 mIU/mLMALE NORMALS: 1.3-19.3 mIU/mLProlactin [Mass/volume] in Serum or PlasmaOrdered By: LEOBARDO BARROSO on 06-23-2022 Prolactin [Mass/Vol]7.58 ng/mL3.34-26.72[facility] HospitalCT biopsyOrdered By: Amanda Ford on 19-26-3487Utvroyytrzp [Mass/Vol]393 mg/hB142-030TvdtycbqiGalion Community HospitalIron [Mass/volume] in Serum or PlasmaOrdered By: Amanda Ford on 81-13-7663Vilu [Mass/Vol]34 ug/uT21-357 [facility] HospitalIron binding capacity [Mass/volume] in Serum or PlasmaOrdered By: Amanda Ford on 42-04-4283Grtz binding capacity [Mass/Vol]550 ug/gB793-039DybpsvsqhGalion Community HospitalIron saturation [Mass Fraction] in Serum or PlasmaOrdered By: Amanda Ford on 11-27-0221Zinn saturation [Mass fraction]6.2 %20-50[facility] Anisocytosis LM Ql (Bld)Ordered By: Farhad Gallego on 57-24-4603Pwkidbmyeubc Ql (Bld)MarkedGalion Community HospitalBasophils Auto (Bld) [#/Vol]Ordered By: Farhad Gallego on 23-28-4664Pgaxfrqrg (Bld) [#/Vol]N/[facility] HospitalBasophils/100 WBC Auto (Bld)Ordered By: Farhad Gallego on 06-11-2022 Basophils/100 WBC (Bld)N/[facility] HospitalBasophils/100 WBC Manual cnt (Bld)Ordered By: Farhad Gallego on 97-99-4506Birbhrlhx/100 WBC (Bld)1 % 0-2FSt. Mary's Medical Center, [place] CampusEosinophils Auto (Bld) [#/Vol]Ordered By: Farhad Gallego on 69-62-8902Tigqvyiulmk (Bld) [#/Vol]N/[facility] HospitalEosinophils/100 WBC Auto (Bld)Ordered By: Farhad Lashonda on 06-11-2022 Eosinophils/100 WBC (Bld)N/[facility] HospitalEosinophils/100 WBC Manual cnt (Bld)Ordered By: Farhad Lashonda on 86-55-8946Shrjdtknzyd/100 WBC (Bld) 7 %1-3FSt. Mary's Medical Center, [place] CampusErythrocyte distribution width Auto (RBC) [Ratio]Ordered By: Farhad Lashonda on 90-37-1354Cfeunnvlccg distribution width (RBC) [Ratio]26.1 %11.9-15.3FSt. Mary's Medical Center, [place] CampusHematocrit Auto (Bld) [Volume fraction]Ordered By: Farhad Lashonda on 60-69-4974Ibtzaohacs (Bld) [Volume fraction]25.7 %34.0-46.4FSt. Mary's Medical Center, [place] CampusHemoglobin [Mass/volume] in BloodOrdered By: Farhad Lashonda on 12-70-7396Irjuhqdmjf (Bld) [Mass/Vol]8.0 g/dL11.8-15.4FSt. Mary's Medical Center, [place] CampusHypochromia LM Ql (Bld)Ordered By: Farhad Lashonda on 45-06-3708Dwliupksvwc Ql (Bld)[facility] MiamisburgLeukocytes [#/volume] corrected for nucleated erythrocytes in Blood by Automated counOrdered By: Farhad Lashonda on 87-37-9990MMJ corrected for nucl RBC Auto (Bld) [#/Vol]5.0 10*3/uL3.8-11.6FSt. Mary's Medical Center, [place] CampusLymphocytes Auto (Bld) [#/Vol]Ordered By: Farhad Lashonda on 51-15-0916Ljlmikvvcol (Bld) [#/Vol]N/[facility] Lymphocytes/100 WBC Auto (Bld)Ordered By: Farhad Lashonda on 06-11-2022 Lymphocytes/100 WBC (Bld)N/[facility] HospitalLymphocytes/100 WBC Manual cnt (Bld)Ordered By: Farhad Lashonda on 15-90-6659Qoqdlivitql/100 WBC (Bld) 56 %18-42[facility] HospitalMCH Auto (RBC) [Entitic mass]Ordered By: Farhad Lashonda on 71-33-1286UQH (RBC) [Entitic mass]21.1 pg24.7-34.3FSt. Mary's Medical Center, [place] CampusMCHC Auto (RBC) [Mass/Vol]Ordered By: Farhad Lashonda on 43-85-9224GXJZ (RBC) [Mass/Vol]31.2 g/dL32.0-35.0[facility] HospitalMCV Auto (RBC) [Entitic vol]Ordered By: Farhad Lashonda on 48-11-2999MVX (RBC) [Entitic vol]67.6 sM43-592YdnfunrvnGalion Community HospitalMicrocytes LM Ql (Bld)Ordered By: Farhad Lashonda on 71-87-6858Wwbnowdaiw Ql (Bld)MarkedGalion Community HospitalMonocytes Auto (Bld) [#/Vol]Ordered By: Farhad Lashonda on 64-50-0406Gxlwiyjgp (Bld) [#/Vol]N/[facility] Monocytes/100 WBC Auto (Bld)Ordered By: Farhad Lashonda on 35-66-4876Rbwjdzanh/100 WBC (Bld)N/[facility] HospitalMonocytes/100 WBC Manual cnt (Bld) Ordered By: Farhad Lashonda on 13-33-1496Tzfscjcyg/100 WBC (Bld)5 %2-11[facility] HospitalNeutrophils Auto (Bld) [#/Vol]Ordered By: Farhad Lashonda on 82-14-1049Jlwmnokjkrn (Bld) [#/Vol]N/[facility] Neutrophils/100 WBC Auto (Bld)Ordered By: Farhad Lashonda on 06-11-2022 Neutrophils/100 WBC (Bld)N/[facility] HospitalNucleated erythrocytes [Presence] in Blood by Automated countOrdered By: Farhad Lashonda on 49-01-0858Qauuvxtuj RBC Auto Ql (Bld)N/[facility] Platelet adequacy [Presence] in Blood by Light microscopyOrdered By: Farhad Lashonda on 00-40-8247Tztzdklvh LM Ql (Bld)NormalNoSheltering Arms HospitalPlatelet mean volume Auto (Bld) [Entitic vol]Ordered By: Farhad Lashonda on 37-31-1393Prnetvha mean volume (Bld) [Entitic vol]8.2 fL6.3-10.7FSt. Mary's Medical Center, [place] CampusPlatelet morphology finding [Identifier] in BloodOrdered By: FarhadMerchant on 82-84-3053Mtqzjjpx morphology finding Nom (Bld)NormalNoWayne HealthCare Main CampusPlatelets Auto (Bld) [#/Vol]Ordered By: Farhad Lashonda on 02-95-4925Mgevjekrr (Bld) [#/Vol]165 10*3/cM286-354LbfpexoibGalion Community HospitalPolychromasia [Presence] in Blood by Light microscopyOrdered By: Farhad Gallego on 09-85-8516Clhvushsruawn LM Ql (Bld)[facility] CenterRB Auto (Bld) [#/Vol]Ordered By: Farhad Gallego on 62-52-5836QFH (Bld) [#/Vol]3.80 10*6/uL3.60-5.00[facility] HospitalRB morphologyOrdered By: Farhad Gallego on 43-24-6464YZR morphology finding Nom (Bld) N/AFOhioHealth Nelsonville Health Centeregmented neutrophils/100 WBC Manual cnt (Bld)Ordered By: Farhad Gallego on 70-21-7323Xnmmdsfcs neutrophils/100 WBC (Bld)32 %50-70[facility] HospitalWBC Auto (Bld) [#/Vol]Ordered By: Farhad Gallego on 78-89-6785JHH (Bld) [#/Vol]5.0 10*3/uL3.8-11.6FSt. Mary's Medical Center, [place] CampusActivated partial thromboplastin time (aPTT) in platelet poor plasma by coagulation aOrdered By: Jean Jett on 91-90-6154hQSU Coag (PPP) [Time]29.8 s25.1-36.5FSt. Mary's Medical Center, [facility] CampusAnisocytosis LM Ql (Bld) Ordered By: Jean Jett on 73-32-8134Hqfaqxgvuisf Ql (Bld)[facility] CenterBasophils Auto (Bld) [#/Vol]Ordered By: Jean Jett on 47-54-5879Iohoorhen (Bld) [#/Vol]0.1 10*3/uL0.0-0.2FSt. Mary's Medical Center, [place] CampusBasophils/100 WBC Auto (Bld)Ordered By: Jean Jett on 06-10-2022 Basophils/100 WBC (Bld)1.8 %.[facility] HospitalBilirubin Test strip Ql (U)Ordered By: Jean Jett on 89-61-8630Uypktvegh Ql (U)Negative NegativeGalion Community HospitalCT biopsyOrdered By: Jean Jett on 57-09-2133Krqijxisebx [Mass/Vol]380 mg/mN991-031NqzuyifowGalion Community HospitalCalcium [Mass/volume] in Serum or PlasmaOrdered By: Jean Jett on 96-96-7855Mwaltqh [Mass/Vol]8.6 mg/dL8.2-10.2FSt. Mary's Medical [facility], [facility] [facility] Carbon dioxide, total [Moles/volume] in Serum or PlasmaOrdered By: Jean Jett on 42-20-7802XJ9 [Moles/Vol]23.3 mmol/L22.0-30.0[facility] HospitalChloride [Moles/volume] in Serum or PlasmaOrdered By: Jean Jett on 11-73-6887Zvjaredx [Moles/Vol]106 mmol/C10-912PwddzezpcGalion Community Hospital Color Auto (U)Ordered By: Jean Jett on 86-67-8938Qjtpb (U)YellowYellow [facility] HospitalCreatine kinase [Enzymatic activity/volume] in Serum or PlasmaOrdered By: Jean Jett on 84-79-7053JX [Catalytic activity/Vol] 100 U/M71-099HfwggtixfGalion Community HospitalCreatinine and Glomerular filtration rate.predicted panel (S/P/Bld)Ordered By: Jean Jett on 06-10-2022 Creatinine [Mass/Vol]0.71 mg/dL0.44-1.03[facility] Eosinophils Auto (Bld) [#/Vol]Ordered By: Jean Jett on 20-02-2889Yibpqmgyusd (Bld) [#/Vol]0.3 10*3/uL0.0-0.45[facility] HospitalEosinophils/100 WBC Auto (Bld)Ordered By: Jean Jett on 11-30-3661Thkqlpsdvte/100 WBC (Bld) 5.0 %.[facility] HospitalErythrocyte distribution width Auto (RBC) [Ratio]Ordered By: Jean Jett on 86-01-3632Ojfwpadjwni distribution width (RBC) [Ratio]24.6 %11.9-15.3FSt. Mary's Medical Center, [place] CampusEstimated glomerular filtration rate (GFR) non- AmericanOrdered By: Jean Jett on 67-75-5298QSZ/1.73 sq M.predicted among non-blacks MDRD (S/P/Bld) [Vol rate/Area]> 60 mL/MinGalion Community HospitalFecal occult blood detection by immunochemistryOrdered By: Jean Jett on 06-10-2022 Hemoglobin.gastrointestinal Ql (Stl)[facility] HospitalGlucose [Mass/volume] in Serum or PlasmaOrdered By: Jean Jett on 33-92-2323Piuxkab [Mass/Vol]94 mg/gL92-207DzgaoodekGalion Community HospitalComment on above:ADA recommended reference rangeRandom Glucose Reference Range is dependent on time and content of last meal. Glucose of more than 200 mg/dL in a nonstressed, ambulatory subject supports the diagnosisof Diabetes Mellitus.HCG ( test) IA.rapid Ql (U)Ordered By: Jean Jett on 17-09-2631KZQ ( test) Ql (U)NegativeGalion Community HospitalHematocrit Auto (Bld) [Volume fraction]Ordered By: Jean Jett on 21-14-1807Euyngjufzi (Bld) [Volume fraction]23.8 %34.0-46.4FSt. Mary's Medical Center, [facility] CampusHemoglobin [Mass/volume] in BloodOrdered By: Jean Jett on 83-33-1337Acawjvnkaa (Bld) [Mass/Vol]7.3 g/dL11.8-15.4FSt. Mary's Medical Center, [place] CampusHypochromia LM Ql (Bld)Ordered By: Jean Jett on 70-31-1551Xeydxtyasdf Ql (Bld)MarkedGalion Community HospitalIron [Mass/volume] in Serum or PlasmaOrdered By: Jean Jett on 73-27-2665Zjfi [Mass/Vol]25 ug/nS50-792HjxadvvhbGalion Community HospitalIron binding capacity [Mass/volume] in Serum or PlasmaOrdered By: Jean Jett on 71-08-2045Gmac binding capacity [Mass/Vol]532 ug/qW665-070MnllhmxhyGalion Community HospitalIron saturation [Mass Fraction] in Serum or PlasmaOrdered By: Jean Jett on 84-09-4732Zqwk saturation [Mass fraction]4.7 %20-50[facility] HospitalKetones Auto test strip (U) [Mass/Vol]Ordered By: Jean Jett on 87-30-6829Kqockej (U) [Mass/Vol]NegativeNegativeGalion Community HospitalLaboratory - Chemistry and Chemistry - challengeOrdered By: Jean Jett on 87-64-0411Zueehaczc [Mass/Vol]1.9 mg/dL1.6-2.6FSt. Mary's Medical Center, [place] CampusNatriuretic peptide B (Bld) [Mass/Vol]23.0 pg/mL5-100[facility] HospitalLaboratory - CoagulationOrdered By: Jean Jett on 16-22-7742ND Coag (PPP) [Time]12.9 s9.0-12.9[facility] Leukocytes [#/volume] corrected for nucleated erythrocytes in Blood by Automated counOrdered By: Jean Jett on 95-03-4257KTR corrected for nucl RBC Auto (Bld) [#/Vol]5.3 10*3/uL3.8-11.6FSt. Mary's Medical Center, [place] CampusLymphocytes Auto (Bld) [#/Vol]Ordered By: Jean Jett on 45-39-5517Khluetjjqho (Bld) [#/Vol]2.2 10*3/uL1.00-4.8[facility] HospitalLymphocytes/100 WBC Auto (Bld) Ordered By: Jean Jett on 60-05-1036Mlaavwwbfzh/100 WBC (Bld)41.3 %.[facility] HospitalMCH Auto (RBC) [Entitic mass]Ordered By: Jean Jett on 83-94-6341EFZ (RBC) [Entitic mass]19.7 pg24.7-34.3FSt. Mary's Medical Center, [place] CampusMCHC Auto (RBC) [Mass/Vol]Ordered By: Jean Jett on 16-09-8723XFFR (RBC) [Mass/Vol]30.6 g/dL32.0-35.0[facility] HospitalMCV Auto (RBC) [Entitic vol]Ordered By: Jean Jett on 41-91-2396HRS (RBC) [Entitic vol]64.5 tG75-012OrvogysofGalion Community HospitalMicrocytes LM Ql (Bld)Ordered By: Jean Jett on 47-27-9774Jwzuocdhvd Ql (Bld)MarkedGalion Community HospitalMonocyte distribution width [Entitic volume] in Blood by AutomatedOrdered By: Jean Jett on 27-49-0226Qbuoisev distribution width Auto (Bld) [Entitic vol]17.54 %0.00-20.00[facility] HospitalMonocytes Auto (Bld) [#/Vol]Ordered By: Jean Jett on 09-97-2666Hoqxetsnz (Bld) [#/Vol]0.4 10*3/uL 0.0-0.8[facility] HospitalMonocytes/100 WBC Auto (Bld)Ordered By: Jean Jett on 85-85-7007Nhdfdzogd/100 WBC (Bld)6.8 %.[facility] HospitalNeutrophils Auto (Bld) [#/Vol]Ordered By: Jean Jett on 67-40-0663Ouuazpahkqf (Bld) [#/Vol]2.4 10*3/uL1.8-7.7FSt. Mary's Medical Center, [place] CampusNeutrophils/100 WBC Auto (Bld)Ordered By: Jean Jett on 06-10-2022 Neutrophils/100 WBC (Bld)45.1 %.[facility] HospitalNitrite Test strip Ql (U)Ordered By: Jean Jett on 02-93-8452Frkthmw Ql (U)NegativeNegative [facility] HospitalNo Panel InformationOrdered By: Jean Jett on 86-95-1274Mqewbrqqu GFR ()> 60 mL/MinGalion Community HospitalComment on above:GFR estimated reference range: According to KDOQI guidelines, <60 ml/min/1.73m2 is sufficient todiagnose a patient with chronic kidney disease.Pharmacy Creatinine Clearance (Ycsc296.49[facility] HospitalNucleated erythrocytes [Presence] in Blood by Automated count Ordered By: Jean Jett on 40-74-3253Razzxsrtz RBC Auto Ql (Bld)0.1 /100{WBC} 0-0.5FSt. Mary's Medical Center, [place] CampusOvalocyte detectionOrdered By: Jean Jett on 46-28-8616Zzfkmqakcy LM Ql (Bld)SlightGalion Community Hospital Platelet adequacy [Presence] in Blood by Light microscopyOrdered By: Jean Jett on 03-54-8057Aiyvnvarg LM Ql (Bld)NormalNormGalion Community HospitalPlatelet mean volume Auto (Bld) [Entitic vol]Ordered By: Jean Jett on 83-01-2104Asazgzcm mean volume (Bld) [Entitic vol]8.3 fL6.3-10.7FSt. Mary's Medical Center, [place] CampusPlatelet morphology finding [Identifier] in BloodOrdered By: Jean Jett on 00-11-5078Ydxbofkk morphology finding Nom (Bld)NormalNormal [facility] HospitalPlatelet poor plasma international normalized ratio (INR) by coagulation assay (relatOrdered By: Jean Jett on 62-92-5204VWB Coag (PPP) [Relative time]1.1 {INR}[facility] HospitalComment on above:INR Therapeutic Range A) Pre- [...] Auto (Bld) [#/Vol]Ordered By: Jean Jett on 41-57-9290Bvfygrubm (Bld) [#/Vol]202 10*3/rZ887-868UvzikcscvGalion Community HospitalPoikilocytosis [Presence] in Blood by Light microscopyOrdered By: Jean Jett on 43-55-2180Aqkqvqtgevzijh LM Ql (Bld)[facility] HospitalPolychromasia [Presence] in Blood by Light microscopyOrdered By: Jean Jett on 40-41-3293Lqnbinczodnst LM Ql (Bld)[facility] HospitalPotassium [Moles/volume] in Serum or PlasmaOrdered By: Jean Jett on 30-10-6821Lgyxtdlvi [Moles/Vol]4.1 mmol/L3.5-5.1FSt. Mary's Medical Center, [place] CampusProtein Auto test strip (U) [Mass/Vol]Ordered By: Jean Jett on 06-29-0059Eslzkht (U) [Mass/Vol]NegativeNegativeGalion Community HospitalRBC Auto (Bld) [#/Vol]Ordered By: Jean Jett on 36-64-1453MEK (Bld) [#/Vol]3.69 10*6/uL3.60-5.00[facility] morphology Ordered By: Jean Jett on 38-76-4421MMN morphology finding Nom (Bld)N/A [facility] Cancer Centererum or plasma anion gap determinationOrdered By: Jean Jett on 25-40-6647Vprgu gap [Moles/Vol]10.8 mmol/L6.0-15.0[facility] Cancer Centerodium [Moles/volume] in Serum or PlasmaOrdered By: Jean Jett on 80-39-2803Qnckxq [Moles/Vol]136 mmol/Y703-982IsbearvgfOhioHealth Arthur G.H. Bing, MD, Cancer Centerpecific gravity Auto test strip (U) [Rel density]Ordered By: Jean Jett on 28-38-3757Zqzpazrm gravity (U) [Rel density]1.0101.001-1.030 [facility] HospitalTarget cellsOrdered By: Jean Jett on 08-61-4195Zrwsak cells LM Ql (Bld)[facility] Teardrop cell detectionOrdered By: Jean Jett on 03-23-0871Pdcxmhkpeq LM Ql (Bld)[facility] HospitalTroponin I.cardiac [Mass/volume] in Serum or Plasma by High sensitivity methodOrdered By: Jean Jett on 06-10-2022 Troponin I.cardiac High sensitivity method [Mass/Vol]< 3 pg/mL0-15[facility] HospitalUrea nitrogen [Mass/volume] in Serum or PlasmaOrdered By: Jean Jett on 86-32-2541Pdog nitrogen [Mass/Vol]9 mg/dL9[facility] HospitalUrine clarity by refractometry automatedOrdered By: Jean Jett on 62-93-8784Pfeynhs Refractometry automated (U)ClearClearFSt. Mary's Medical Center, [facility] CampusUrine glucose measurement by automated test strip (mass/volume) Ordered By: Jean Jett on 76-41-7493Bxqfnlh Auto test strip (U) [Mass/Vol] Normal mg/dLNoSheltering Arms HospitalUrine hemoglobin detection by automated test stripOrdered By: Jean Jett on 15-14-0809Rjlkydvrrm Auto test strip Ql (U)NegativeNegNewark HospitalUrine leukocyte esterase detection by automated test stripOrdered By: Jean Jett on 06-10-2022 Leukocyte esterase Auto test strip Ql (U)NegativeNegNewark HospitalUrobilinogen Auto test strip (U) [Mass/Vol]Ordered By: Jean Jett on 33-41-7547Idrueankwgum (U) [Mass/Vol]Normal mg/dLNoSheltering Arms HospitalWBC Auto (Bld) [#/Vol]Ordered By: Jean Jett on 41-31-5745DAS (Bld) [#/Vol]5.3 10*3/uL3.8-11.6FSt. Mary's [facility] pH Auto test strip (U)Ordered By: Jean Jett on 16-35-5942gX (U)5.5 [pH] 5.0-9.0[facility] HospitalAlkaline phosphatase [Enzymatic activity/volume] in Serum or PlasmaOrdered By: Julieta Jefferson on 22-32-4637XTG [Catalytic activity/Vol]39 U/G45-10HaqleziqcGalion Community HospitalAnisocytosis LM Ql (Bld)Ordered By: Julieta Jefferson on 78-24-0688Wsrwidcylkcf Ql (Bld)Marked [facility] HospitalAspartate aminotransferase [Enzymatic activity/volume] in Serum or PlasmaOrdered By: Julieta Jefferson on 20-91-6956EPW [Catalytic activity/Vol]15 U/U96-02CoifqrjuzGalion Community HospitalBasophils Auto (Bld) [#/Vol]Ordered By: Julieta Jefferson on 37-45-1559Vwqejviqv (Bld) [#/Vol] 0.1 10*3/uL0.0-0.2FSt. Mary's Medical Center, [facility] CampusBasophils/100 WBC Auto (Bld) Ordered By: Julieta Jefferson on 70-98-8776Cnkueegwe/100 WBC (Bld)1.4 %.[facility] HospitalBody fluid albumin measurement (mass/volume)Ordered By: Julieta Jefferson on 08-85-2699Kjowebs (Body fld) [Mass/Vol]4.1 g/dL3.2-5.5FSt. Mary's Medical Center, [place] CampusCalcium [Mass/volume] in Serum or PlasmaOrdered By: Julieta Jefferson on 62-44-7409Jqoafxq [Mass/Vol]9.0 mg/dL8.2-10.2FSt. Mary's Medical Center, [facility] CampusCarbon dioxide, total [Moles/volume] in Serum or PlasmaOrdered By: Julieta Jefferson on 70-33-7156LH4 [Moles/Vol]23.3 mmol/L22.0-30.0[facility] HospitalCholesterol [Mass/volume] in Serum or PlasmaOrdered By: Julieta Jefferson on 36-88-3300Leyxdqwjntq [Mass/Vol]137 mg/iJ636-922TmpyyzxgpGalion Community HospitalComment on above:Chol less than 200 mg/dl low riskChol 201-239 mg/dl borderline riskChol 240 mg/dl and greater high riskCholesterol in LDL Calc [Mass/Vol]Ordered By: Julieta Jefferson on 63-95-0693Zpshkdxdxna in LDL [Mass/Vol]72 mg/dL0-100[facility] HospitalComment on above:LDL ATP III CLASSIFICATIONLDL less than 100 mg/dL OptimalLDL 100-129 mg/dL Near or above zmrerbsWUM077-054 mg/dL Borderline highLDL 160-189 mg/dL HighLDL greater than 189 mg/dL Very highCholesterol in VLDL Calc [Mass/Vol]Ordered By: Julieta Jefferson on 51-50-2615Ppeaqlxnxtz in VLDL [Mass/Vol]9 mg/dLGalion Community HospitalCreatinine and Glomerular filtration rate.predicted panel (S/P/Bld)Ordered By: Julieta Jefferson on 33-00-1489Dqfhwdjvcy [Mass/Vol]0.59 mg/dL0.44-1.03[facility] HospitalEosinophils Auto (Bld) [#/Vol]Ordered By: Julieta Jefferson on 61-68-6171Eszlimdhlja (Bld) [#/Vol]0.3 10*3/uL0.0-0.45[facility] HospitalEosinophils/100 WBC Auto (Bld)Ordered By: Julieta Jefferson on 06-09-2022 Eosinophils/100 WBC (Bld)6.8 %.[facility] HospitalErythrocyte distribution width Auto (RBC) [Ratio]Ordered By: Julieta Jefferson on 06-09-2022 Erythrocyte distribution width (RBC) [Ratio]24.5 %11.9-15.3FSt. Mary's Medical Center, [facility] CampusEstimated glomerular filtration rate (GFR) non- Ordered By: Julieta Jefferson on 15-08-3934KPG/1.73 sq M.predicted among non-blacks MDRD (S/P/Bld) [Vol rate/Area]> 60 mL/MinGalion Community Hospital Globulin Calc (S) [Mass/Vol]Ordered By: Julieta Jefferson on 70-40-5996Skclvbuv (S) [Mass/Vol]2.3 g/dLGalion Community HospitalGlucose mean value [Mass/volume] in Blood Estimated from glycated hemoglobinOrdered By: Julieta Jefferson on 36-08-3459Ngincnj glucose Estimated from glycated hemoglobin (Bld) [Mass/Vol]97 mg/dLGalion Community HospitalHematocrit Auto (Bld) [Volume fraction]Ordered By: Julieta Jefferson on 52-12-6356Pyxgbljwwx (Bld) [Volume fraction]26.0 %34.0-46.4FSt. Mary's Medical Center, [place] CampusHemoglobin A1c percentageOrdered By: Julieta Jefferson on 45-34-5743PxU2a (Bld) [Mass fraction]5.0 % 4.3-5.6FSt. Mary's Medical Center, [place] CampusComment on above:Increased risk for diabetes: 5.7 - 6.4diabetes: >6.4glycemic control for adults with diabetes: &l t;7.0Hemoglobin [Mass/volume] in BloodOrdered By: Julieta Jefferson on 06-09-2022 Hemoglobin (Bld) [Mass/Vol]7.8 g/dL11.8-15.4FSt. Mary's Medical [facility], [place] Campus Hypochromia LM Ql (Bld)Ordered By: Julieta Jefferson on 63-02-3497Aiehpkzxmng Ql (Bld) ModerateGalion Community HospitalLeukocytes [#/volume] corrected for nucleated erythrocytes in Blood by Automated counOrdered By: Julieta Jefferson on 49-56-9749VQR corrected for nucl RBC Auto (Bld) [#/Vol]4.6 10*3/uL3.8-11.6 [facility] HospitalLymphocytes Auto (Bld) [#/Vol]Ordered By: Julieta Jefferson on 09-71-2577Pubzvdzofpk (Bld) [#/Vol]2.0 10*3/uL1.00-4.8[facility] HospitalLymphocytes/100 WBC Auto (Bld)Ordered By: Julieta Jefferson on 54-15-1488Syttewvescd/100 WBC (Bld)44.2 %.[facility] HospitalMCH Auto (RBC) [Entitic mass]Ordered By: Julieta Jefferson on 29-60-1922OGA (RBC) [Entitic mass]19.7 pg24.7-34.3FSt. Mary's Medical Center, [place] CampusMCHC Auto (RBC) [Mass/Vol]Ordered By: Julieta Jefferson on 49-54-0682OEZX (RBC) [Mass/Vol]30.2 g/dL 32.0-35.0[facility] HospitalMCV Auto (RBC) [Entitic vol]Ordered By: Julieta Jefferson on 65-67-2982MEM (RBC) [Entitic vol]65.3 tJ50-189EfhfwsankGalion Community HospitalMicrocytes LM Ql (Bld)Ordered By: Julieta Jefferson on 56-26-1636Xpqrtgjmxy Ql (Bld)MarkedGalion Community HospitalMonocytes Auto (Bld) [#/Vol]Ordered By: Julieta Jefferson on 17-98-1526Jvekkiugr (Bld) [#/Vol] 0.4 10*3/uL0.0-0.8[facility] HospitalMonocytes/100 WBC Auto (Bld) Ordered By: Julieta Jefferson on 67-24-1284Qdodekmxu/100 WBC (Bld)8.9 %.[facility] HospitalNeutrophils Auto (Bld) [#/Vol]Ordered By: Julieta Jefferson on 71-79-1051Atczqxlbnrl (Bld) [#/Vol]1.8 10*3/uL1.8-7.7FSt. Mary's Medical Center, Ironton CampusNeutrophils/100 WBC Auto (Bld)Ordered By: Julieta Jefferson on 06-09-2022 Neutrophils/100 WBC (Bld)38.7 %.[facility] HospitalNo Panel InformationOrdered By: Julieta Jefferson on 30-31-3959Lwhjheshv GFR () > 60 mL/MinGalion Community HospitalComment on above:GFR estimated reference range: According to KDOQI guidelines, <60 ml/min/1.73m2 is sufficient todiagnose a patient with chronic kidney disease.Pharmacy Creatinine Clearance (ChemN/[facility] HospitalNucleated erythrocytes [Presence] in Blood by Automated countOrdered By: Julieta Jefferson on 23-21-6122Vfuvlfagi RBC Auto Ql (Bld)0.1 /100{WBC}0-0.5FSt. Mary's Medical Center, [facility]ont[facility] CampusPlatelet adequacy [Presence] in Blood by Light microscopyOrdered By: Julieta Jefferson on 06-09-2022 Platelets LM Ql (Bld)NormalGood Samaritan HospitalPlatelet mean volume Auto (Bld) [Entitic vol]Ordered By: Julieta Jefferson on 83-45-6341Cugkolfp mean volume (Bld) [Entitic vol]8.2 fL6.3-10.7FSt. Mary's Medical [facility] Platelet morphology finding [Identifier] in BloodOrdered By: Julieta Jefferson on 34-47-2859Ppguheot morphology finding Nom (Bld)NormalNoSheltering Arms HospitalPlatelets Auto (Bld) [#/Vol]Ordered By: Julieta Jefferson on 06-09-2022 Platelets (Bld) [#/Vol]200 10*3/cC703-128SbhseklbtGalion Community Hospital Poikilocytosis [Presence] in Blood by Light microscopyOrdered By: Julieta Jefferson on 00-33-2424Pcixrioqrippux LM Ql (Bld)[facility] Polychromasia [Presence] in Blood by Light microscopyOrdered By: Julieta Jefferson on 43-79-2988Plmxjwtreoxlf LM Ql (Bld)ModerateGalion Community Hospital Protein [Mass/volume] in Serum or PlasmaOrdered By: Julieta Jefferson on 06-09-2022 Protein [Mass/Vol]6.4 g/dL6.1-7.9[facility] HospitalRB Auto (Bld) [#/Vol]Ordered By: Julieta Jefferson on 51-64-1311FOU (Bld) [#/Vol]3.97 10*6/uL 3.60-5.00[facility] HospitalRB morphologyOrdered By: Julieta Jefferson on 12-74-1771UHU morphology finding Nom (Bld)N/AFOhioHealth Nelsonville Health Centerchistocytes [Presence] in Blood by Light microscopyOrdered By: Julieta Jefferson on 76-82-9821Ishzwzrhoocl LM Ql (Bld)[facility] Hospitalerum or plasma alanine aminotransferase measurement without P-5'-P (enzymatic activiOrdered By: Julieta Jefferson on 36-46-6972VRG No additional P-5'-P [Catalytic activity/Vol]14 U/B27-28KuyqxajtqOhioHealth Arthur G.H. Bing, MD, Cancer Centererum or plasma albumin/globulin mass ratioOrdered By: Julieta Jefferson on 06-09-2022 Albumin/Globulin [Mass ratio]1.8 {ratio}[facility], [facility], Cancer Centererum or plasma anion gap determinationOrdered By: Julieta Jefferson on 85-20-3211Wnzum gap [Moles/Vol]11.5 mmol/L6.0-15.0[facility], [facility], Cancer Centererum or plasma calcitriol measurement (mass/volume)Ordered By: Julieta Jefferson on ,25- dihydroxyvitamin D3 [Mass/Vol]60.5 pg/mL24.8-81.5FSt. Mary's Medical Center, Ironton CampusComment on above:Performed at: - Lab[address] [id number] Director: Jon Horton MD, Phone: [phone] or plasma chloride measurement (moles/volume)Ordered By: Julieta Jefferson on 94-38-3067Zkaczlud [Moles/Vol]106 mmol/L54-783XgbjycqxeGalion Community Hospital Serum or plasma glucose measurement (mass/volume)Ordered By: Julieta Jefferson on 90-14-1890Srngidm [Mass/Vol]78 mg/vB53-640RylxyismsGalion Community Hospital Comment on above:ADA recommended reference rangeRandom Glucose Reference Range is dependent on time and content of last meal. Glucose of more than 200 mg/dL in a nonstressed, ambulatory subject supports the diagnosisof Diabetes Mellitus. Serum or plasma high density lipoprotein (HDL) cholesterol measurementOrdered By: Julieta Jefferson on 31-38-8706Xydwjydmegq in HDL [Mass/Vol]56 mg/zC50-79XffykqkscGalion Community HospitalComment on above:HDL CHOL ATP-III CLASSIFICATION Cardiovascular RiskHDL > or equal to 60 mg/dL LOWHDL < 40 mg/dL HIGHSerum or plasma potassium measurement (moles/volume)Ordered By: Julieta Jefferson on 06-09-2022 Potassium [Moles/Vol]3.8 mmol/L3.5-5.1FOhioHealth Nelsonville Health Centererum or plasma sodium measurement (moles/volume)Ordered By: Julieta Jefferson on 06-09-2022 Sodium [Moles/Vol]137 mmol/O591-181LznztjmqfOhioHealth Arthur G.H. Bing, MD, Cancer Centererum or plasma total bilirubin measurement (mass/volume)Ordered By: Julieta Jefferson on 42-70-1379Wzhgebdwj [Mass/Vol]0.3 mg/dL0.3-1.2FSt. Mary's Medical [facility], [facility] Serum or plasma total cholesterol/high density lipoprotein (HDL) cholesterol mass ratOrdered By: Julieta Jefferson on 36-83-9241Yqxynmtljhs.total/Cholesterol in HDL [Mass ratio]2.4 {ratio}<5.0[facility] DL <= 0.005 mIU/L QnOrdered By: Julieta Jefferson on 09-87-5288BXT Qn4.10 m[IU]/L0.45-5.33 [facility] HospitalTeardrop cell detectionOrdered By: Julieta Jefferson on 64-11-4643Qoxgrvmwsy LM Ql (Bld)SlightGalion Community Hospital Triglyceride [Mass/volume] in Serum or PlasmaOrdered By: Julieta Jefferson on 31-21-9036Mxeurzelhsgr [Mass/Vol]45 mg/aA65-745BftnstnqzGalion Community Hospital Comment on above:TRIG ATP III CLASSIFICATIONTRIG less than 150 mg/dL NormalTRIG 150-199 mg/dL Borderline highTRIG 200-500 mg/dL High TRIG greater than 500 mg/dL Very highStandard traceable to the Center for Disease Conrtrol and Prevention (CDC) test method.Urea nitrogen [Mass/volume] in Serum or PlasmaOrdered By: Julieta Jefferson on 18-11-6239Jksq nitrogen [Mass/Vol]6 mg/dL9-[facility] HospitalWBC Auto (Bld) [#/Vol]Ordered By: Julieta Li on 10-30-9977VIG (Bld) [#/Vol]4.6 10*3/uL3.8-11.6FSt. Mary's Medical Center, Iront[facility] CampusUrine 10 SGon 79-95-4771Cahlegn DL <= 20 mg/L (U) [Mass/Vol]NegativeNortSiano Mobile Silicon Other pH (U)7.0 [pH][employer] Other urine 10 SGNegative100du.tv Other Urine 10 SG1.020No100du.tv Other urine 10 SGlargeNo100du.tv Other Urine Cultureon 93-22-7324Zvzzthao identified Cx Nom (U)[employer] Other urine culture routineOrdered By: Amanda Ford on 66-36-2708Unutpwyj identified Cx Nom (U)2 DaysGalion Community HospitalActivated partial thromboplastin time (aPTT) in platelet poor plasma by coagulation aOrdered By: Phu Hdz on 50-13-7059iIYB Coag (PPP) [Time] 30.4 s25.1-36.5FSt. Mary's Medical Center, [facility]ont[place] CampusAutomated erythrocytes count in urine sediment (number/area)Ordered By: Jean Jett on 04-99-3192SMA Auto (Urine sed) [#/Area]Innumerable [HPF]0-4FSt. Mary's Medical Center, [facility] Automated leukocytes count in urine sediment (number/area)Ordered By: Jean Jett on 74-50-1083JGT Auto (Urine sed) [#/Area]3-4 [HPF]0-4FSt. Mary's Medical Center, Ironton CampusAutomated urine sediment calcium oxalate crystal count by microscopy (number/high powOrdered By: Jean Jett on 96-17-2989Tkaibsa oxalate crystals LM.HPF (Urine sed) [#/Area]1+ [HPF][facility] Basophils Auto (Bld) [#/Vol]Ordered By: Jean Jett on 49-63-9402Bsljonqid (Bld) [#/Vol]0.0 10*3/uL0.0-0.2FSt. Mary's Medical Center, [facility]ont[place] CampusBasophils/100 WBC Auto (Bld)Ordered By: Jean Jett on 16-93-8372Lswpqlfjh/100 WBC (Bld)0.5 % .[facility] HospitalBilirubin Test strip Ql (U)Ordered By: Jean Jett on 23-01-9008Pxbubxobi Ql (U)1+NegativeGalion Community Hospital Casts typing in urine sediment by light microscopyOrdered By: Jean Jett on 76-47-1155Oscqr LM Nom (Urine sed)None seen [LPF]None SeenGalion Community HospitalColor Auto (U)Ordered By: Jean Jett on 37-76-6923Ifxoh (U)Red YellowGalion Community HospitalCreatinine and Glomerular filtration rate.predicted panel (S/P/Bld)Ordered By: Jean Jett on 42-57-2434Mwsadwwavk [Mass/Vol]0.68 mg/dL0.44-1.03[facility] HospitalEosinophils Auto (Bld) [#/Vol]Ordered By: Jean Jett on 96-51-0971Deerdeefbad (Bld) [#/Vol]0.2 10*3/uL0.0-0.45[facility] HospitalEosinophils/100 WBC Auto (Bld) Ordered By: Jean Jett on 85-64-4807Oyydkjctwcq/100 WBC (Bld)2.1 %.[facility] HospitalErythrocyte distribution width Auto (RBC) [Ratio]Ordered By: Jean Jett on 03-41-4053Cjogljltyfw distribution width (RBC) [Ratio]14.3 % 11.9-15.3FSt. Mary's Medical Center, [facility]ont[facility] CampusEstimated glomerular filtration rate (GFR) non- AmericanOrdered By: Jean Jett on 14-92-2355XPS/1.73 sq M.predicted among non-blacks MDRD (S/P/Bld) [Vol rate/Area]> 60 mL/MinGalion Community HospitalHCG ( test) IA.rapid Ql (U)Ordered By: Jean Jett on 03-59-6934SOF ( test) Ql (U)NegativeGalion Community HospitalHematocrit Auto (Bld) [Volume fraction]Ordered By: Jean Jett on 49-21-9656Hhcyhmkgkq (Bld) [Volume fraction]29.4 %34.0-46.4FSt. Mary's Medical Center, [facility] CampusHemoglobin [Mass/volume] in BloodOrdered By: Jean Jett on 32-02-7815Xzceglwduo (Bld) [Mass/Vol]9.9 g/dL11.8-15.4FSt. Mary's Medical Center, Iront[place] CampusKetones Auto test strip (U) [Mass/Vol]Ordered By: Jean Jett on 11-99-7979Tnaxuuj (U) [Mass/Vol]NegativeNegativeGalion Community HospitalLaboratory - CoagulationOrdered By: Phu Hdz on 07-61-8895IC Coag (PPP) [Time]12.4 s9.0-12.9[facility] HospitalLaboratory - UrinalysisOrdered By: Jean Jett on 35-71-5992Pqwgmqj casts LM Ql (Urine sed) None seen [LPF]0-8[facility] HospitalLeukocytes [#/volume] corrected for nucleated erythrocytes in Blood by Automated counOrdered By: Jean Jett on 48-25-5653CVF corrected for nucl RBC Auto (Bld) [#/Vol]8.5 10*3/uL3.8-11.6FSt. Mary's Medical Center, [facility]ont[facility] CampusLymphocytes Auto (Bld) [#/Vol] Ordered By: Jean Jett on 83-63-0137Jqbkqrinvum (Bld) [#/Vol]2.1 10*3/uL 1.00-4.8[facility] HospitalLymphocytes/100 WBC Auto (Bld)Ordered By: Jean Jett on 97-15-6784Jafpagscjjh/100 WBC (Bld)25.2 %.[facility] HospitalH Auto (RBC) [Entitic mass]Ordered By: Jean Jett on 82-80-6507IEU (RBC) [Entitic mass]28.8 pg24.7-34.3FSt. Mary's Medical Center, Iront[facility] CampusMCHC Auto (RBC) [Mass/Vol]Ordered By: Jean Jett on 70-86-6031IADN (RBC) [Mass/Vol]33.6 g/dL32.0-35.0[facility] HospitalMCV Auto (RBC) [Entitic vol]Ordered By: Jean Jett on 94-42-8807MLX (RBC) [Entitic vol]85.7 xZ55-192DlfggrtnaGalion Community HospitalMonocyte distribution width [Entitic volume] in Blood by AutomatedOrdered By: Jean Jett on 83-34-0265Qmhissez distribution width Auto (Bld) [Entitic vol]14.20 %0.00-20.00[facility] HospitalMonocytes Auto (Bld) [#/Vol]Ordered By: Jean Jett on 04-10-2022 Monocytes (Bld) [#/Vol]0.5 10*3/uL0.0-0.8[facility] Monocytes/100 WBC Auto (Bld)Ordered By: Jean Jett on 45-15-4109Xkqbatmhd/100 WBC (Bld)5.7 %.[facility] HospitalNeutrophils Auto (Bld) [#/Vol] Ordered By: Jean Jett on 86-50-4631Lwvoopfkazs (Bld) [#/Vol]5.6 10*3/uL 1.8-7.7FSt. Mary's Medical Center, [facility]ont[place] CampusNeutrophils/100 WBC Auto (Bld)Ordered By: Jean Jett on 15-73-6177Lzxkdngjmou/100 WBC (Bld)66.5 %.[facility] HospitalNitrite Test strip Ql (U)Ordered By: Jean Jett on 04-10-2022 Nitrite Ql (U)PositiveNegativeGalion Community HospitalNo Panel InformationOrdered By: Jean Jett on 94-46-1966Ccecmhoje GFR ()> 60 mL/MinGalion Community HospitalComment on above:GFR estimated reference range: According to KDOQI guidelines, <60 ml/min/1.73m2 is sufficient todiagnose a patient with chronic kidney disease.Pharmacy Creatinine Clearance (Qtle979.39[facility] HospitalNucleated erythrocytes [Presence] in Blood by Automated countOrdered By: Jean Jett on 04-10-2022 Nucleated RBC Auto Ql (Bld)0.0 /100{WBC}0-0.5FSt. Mary's Medical Center, [facility] Platelet mean volume Auto (Bld) [Entitic vol]Ordered By: Jean Jett on 32-62-0197Eegjctoy mean volume (Bld) [Entitic vol]6.9 fL6.3-10.7FSt. Mary's Medical Center, [facility] CampusPlatelet poor plasma international normalized ratio (INR) by coagulation assay (relatOrdered By: Phu Hdz on 14-71-2307LSZ Coag (PPP) [Relative time]1.1 {INR}[facility] HospitalComment on above: INR Therapeutic Range A) [...] Auto (Bld) [#/Vol]Ordered By: Jean Jett on 49-63-0521Ijdtrtxvf (Bld) [#/Vol]263 10*3/lG373-200HhrtaswmeGalion Community HospitalProtein Auto test strip (U) [Mass/Vol]Ordered By: Jean Jett on 54-18-0880Kmkoycz (U) [Mass/Vol]100 mg/dLNegativeGalion Community HospitalRBC Auto (Bld) [#/Vol]Ordered By: Jean Jett on 74-36-2619GLB (Bld) [#/Vol]3.43 10*6/uL 3.60-5.00[facility] Cancer Centererum or plasma anion gap determinationOrdered By: Jean Jett on 20-03-5433Kvnwt gap [Moles/Vol]8.5 mmol/L6.0-15.0[facility] Cancer Centererum or plasma calcium measurement (mass/volume)Ordered By: Jean Jett on 31-22-8776Bjmkvfk [Mass/Vol]8.6 mg/dL8.2-10.2FOhioHealth Nelsonville Health Centererum or plasma chloride measurement (moles/volume)Ordered By: Jean Jett on 04-10-2022 Chloride [Moles/Vol]106 mmol/N27-665NsilpqyjmOhioHealth Arthur G.H. Bing, MD, Cancer Centererum or plasma glucose measurement (mass/volume)Ordered By: Jean Jett on 04-10-2022 Glucose [Mass/Vol]99 mg/jN69-286TiyusraxnGalion Community HospitalComment on above:ADA recommended reference rangeRandom Glucose Reference Range is dependent on time and content of last meal. Glucose of more than 200 mg/dL in a nonstressed, ambulatory subject supports the diagnosisof Diabetes Mellitus.Serum or plasma potassium measurement (moles/volume)Ordered By: Jean Jett on 13-34-4206Krudodoju [Moles/Vol]3.6 mmol/L3.5-5.1FOhioHealth Nelsonville Health Centererum or plasma sodium measurement (moles/volume)Ordered By: Jean Jett on 55-91-3585Qsgbsx [Moles/Vol]138 mmol/Z918-746WuefuihluOhioHealth Arthur G.H. Bing, MD, Cancer Centererum or plasma total carbon dioxide measurement (moles/volume)Ordered By: Jean Jett on 64-29-6592XO5 [Moles/Vol]27.1 mmol/L22.0-30.0[facility] Cancer Centererum or plasma urea nitrogen measurement (mass/volume)Ordered By: Jean Jett on 37-80-0973Ukdj nitrogen [Mass/Vol]5 mg/dL9-23Ohio[facility], MD, Cancer Centerpecific gravity Auto test strip (U) [Rel density]Ordered By: Jean Jett on 11-01-0092Nxvciyhq gravity (U) [Rel density]1.0331.001-1.030 [facility], MD, Cancer Centerquamous epithelial cells detection in urine sediment by light microscopyOrdered By: Jean Jett on 02-22-8043Whcoxebiba cells.squamous LM Ql (Urine sed)3-4 [HPF]0-2FSt. Mary's Medical [facility], [facility] Urine bacteria detection by automated methodOrdered By: Jean Jett on 45-41-9483Vloijgpl Auto Ql (U)None seenNone SeenGalion Community HospitalUrine clarity by refractometry automatedOrdered By: Jean Jett on 83-89-9139Ibejlav Refractometry automated (U)TurbidClearFSt. Mary's Medical Center, [facility]ont[place] CampusUrine culture routineOrdered By: Jean Jett on 04-10-2022 Bacteria identified Cx Nom (U)2 DaysGalion Community HospitalUrine glucose measurement by automated test strip (mass/volume)Ordered By: Jean Jett on 25-10-1915Ujiwyjd Auto test strip (U) [Mass/Vol]Normal mg/dLCleveland Clinic Hillcrest HospitalUrine hemoglobin detection by automated test stripOrdered By: Jean Jett on 53-94-6394Optqwpkxfy Auto test strip Ql (U)3+ NegativeGalion Community HospitalUrine leukocyte esterase detection by automated test stripOrdered By: Jean Jett on 73-99-7031Nnbkqhnmg esterase Auto test strip Ql (U)2+NegativeGalion Community HospitalUrine sediment crystal identification by light microscopyOrdered By: Jean Jett on 04-10-2022 Crystals LM Nom (Urine sed)None seen [HPF][facility] Urobilinogen Auto test strip (U) [Mass/Vol]Ordered By: Jean Jett on 57-91-6796Jwaitnifwdcu (U) [Mass/Vol]Normal mg/dLGood Samaritan HospitalWBC Auto (Bld) [#/Vol]Ordered By: Jean Jett on 70-30-2183BMI (Bld) [#/Vol]8.5 10*3/uL3.8-11.6FSt. Mary's Medical Center, Ironton CampuspH Auto test strip (U)Ordered By: Jean Jett on 60-92-1247jC (U)5.5 [pH]5.0-9.0[facility] HospitalBasophils Auto (Bld) [#/Vol]Ordered By: PROVIDER TEMP on 10-45-8719Wkmkfnwnf (Bld) [#/Vol]0.0 10*3/uL0.0-0.2FSt. Mary's Medical Center, [facility] CampusBasophils/100 WBC Auto (Bld)Ordered By: PROVIDER TEMP on 04-08-2022 Basophils/100 WBC (Bld)0.4 %.[facility] HospitalEosinophils Auto (Bld) [#/Vol]Ordered By: PROVIDER TEMP on 85-15-7269Scgqwdtkhci (Bld) [#/Vol]0.4 10*3/uL0.0-0.45[facility] HospitalEosinophils/100 WBC Auto (Bld) Ordered By: PROVIDER TEMP on 33-24-5802Lthlxlfifyg/100 WBC (Bld)5.5 %.[facility] HospitalErythrocyte distribution width Auto (RBC) [Ratio]Ordered By: PROVIDER TEMP on 27-18-4518Xffodropxzo distribution width (RBC) [Ratio]14.1 %11.9-15.3FSt. Mary's Medical Center, [facility]ont[facility] CampusHematocrit Auto (Bld) [Volume fraction]Ordered By: PROVIDER TEMP on 40-23-2578Uuxdmmctdy (Bld) [Volume fraction]33.9 %34.0-46.4FSt. Mary's Medical Center, [facility] CampusHemoglobin [Mass/volume] in BloodOrdered By: PROVIDER TEMP on 10-96-6869Fgfjiexnwz (Bld) [Mass/Vol]11.4 g/dL11.8-15.4FSt. Mary's Medical Center, [facility] CampusLeukocytes [#/volume] corrected for nucleated erythrocytes in Blood by Automated coun Ordered By: PROVIDER TEMP on 60-61-4149ZOQ corrected for nucl RBC Auto (Bld) [#/Vol]8.1 10*3/uL3.8-11.6FSt. Mary's Medical Center, [facility] CampusLymphocytes Auto (Bld) [#/Vol]Ordered By: PROVIDER TEMP on 77-71-7177Mrggqvlensf (Bld) [#/Vol]2.3 10*3/uL1.00-4.8[facility] HospitalLymphocytes/100 WBC Auto (Bld) Ordered By: PROVIDER TEMP on 80-33-2531Pkkturoldox/100 WBC (Bld)28.1 %.[facility] HospitalMCH Auto (RBC) [Entitic mass]Ordered By: PROVIDER TEMP on 73-53-9476LXW (RBC) [Entitic mass]29.0 pg24.7-34.3FSt. Mary's Medical Center, [facility]ont[facility] CampusMCHC Auto (RBC) [Mass/Vol]Ordered By: PROVIDER TEMP on 14-99-6996YTDX (RBC) [Mass/Vol]33.7 g/dL32.0-35.0[facility] HospitalMCV Auto (RBC) [Entitic vol]Ordered By: PROVIDER TEMP on 91-49-5916KYR (RBC) [Entitic vol]86.0 cG57-101MdmuokzeoGalion Community HospitalMonocyte distribution width [Entitic volume] in Blood by AutomatedOrdered By: PROVIDER TEMP on 04-08-2022 Monocyte distribution width Auto (Bld) [Entitic vol]13.83 %0.00-20.00[facility] HospitalMonocytes Auto (Bld) [#/Vol]Ordered By: PROVIDER TEMP on 51-26-6109Xmryxkhub (Bld) [#/Vol]0.5 10*3/uL0.0-0.8[facility] HospitalMonocytes/100 WBC Auto (Bld)Ordered By: PROVIDER TEMP on 04-08-2022 Monocytes/100 WBC (Bld)6.7 %.[facility] Community HospitalNeutrophils Auto (Bld) [#/Vol]Ordered By: PROVIDER TEMP on 40-62-0435Sxbkyoflikw (Bld) [#/Vol]4.8 10*3/uL1.8-7.7FSt. Mary's Medical Center, [facility]ont[facility] CampusNeutrophils/100 WBC Auto (Bld) Ordered By: PROVIDER TEMP on 86-07-9706Wowavcxrtrv/100 WBC (Bld)59.3 %.[facility] HospitalNucleated erythrocytes [Presence] in Blood by Automated countOrdered By: PROVIDER TEMP on 46-48-9160Mcelszwwl RBC Auto Ql (Bld)0.2 /100{WBC}0-0.5FSt. Mary's Medical Center, [facility] CampusPlatelet mean volume Auto (Bld) [Entitic vol]Ordered By: PROVIDER TEMP on 32-10-2490Thuqiqqd mean volume (Bld) [Entitic vol]7.0 fL6.3-10.7FSt. Mary's Medical Center, [facility] CampusPlatelets Auto (Bld) [#/Vol]Ordered By: PROVIDER TEMP on 70-76-8086Yfkvbpujq (Bld) [#/Vol]199 10*3/uL 150-450Gal[facility] HospitalRBC Auto (Bld) [#/Vol]Ordered By: PROVIDER TEMP on 93-28-6252HVB (Bld) [#/Vol]3.94 10*6/uL3.60-5.00[facility] HospitalWBC Auto (Bld) [#/Vol]Ordered By: PROVIDER TEMP on 38-44-7962FVG (Bld) [#/Vol]8.1 10*3/uL3.8-11.6FSt. Mary's Medical Center, [facility] XR shoulder RT min 2V*on 88-69-0343HW shoulder RT min 2V*[facility] Other XR shoulder RT min 2V*[facility] Other XR shoulder RT min 2V*[address] [place] [address] [facility] Other XR shoulder RT min 2V*[place] [address] Other XR shoulder RT min 2V*[facility]Ad[facility] Other XR shoulder RT min 2V*[facility] Other XR shoulder RT min 2V*Patient: Jaz Sanders MR#: [id number] [facility] Other XR shoulder RT min 2V*[address] [facility] Other XR shoulder RT min 2V*: 1995 Acct:[id number] [place] [facility] Other XR shoulder RT min 2V*Age/Sex: 27 / F ADM Date: 03/23/22[place] [facility] Other XR shoulder RT min 2V*[facility] Type[facility] Other XR shoulder RT min 2V*Attending Dr: Amanda Ford APRN, [facility] [employer] Other XR shoulder RT min 2V*Copies to: Amanda Ford APRN, [facility] Other XR shoulder RT min 2V*Ordering Provider: Amanda Ford APRN, [facility] Other XR shoulder RT min 2V*Date of Service: 03/23/22[place] [facility] Other XR shoulder RT min 2V* XR/XR shoulder RT min 2V*: Other chronic pain;Pain in right shoulderAshford [facility] Other XR shoulder RT min 2V*RIGHT SHOULDER - - 3 viewsAshford [facility] Other XR shoulder RT min 2V*CLINICAL HISTORY: Pain lateral to right shoulder for 6 months.[employer] Other XR shoulder RT min 2V*COMPARISON: [facility] Other XR shoulder RT min 2V*FINDINGS:[employer] Other XR shoulder RT min 2V*Minimal degenerative changes of the right AC joint. Glenohumeral joint is grossly unremarkable. [facility] [employer] Other XR shoulder RT min 2V*acute bony process.[facility] [facility] Other XR shoulder RT min 2V* XR/XR shoulder RT min 2V*[employer] Other XR shoulder RT min 2V*IMPRESSION:[facility] Other XR shoulder RT min 2V*MINIMAL DEGENERATIVE CHANGES. NO ACUTE BONY PROCESS.[employer] Other XR shoulder RT min 2V*Impression dictated by: Sravan Dickinson Jr., D.O.03/23/2022 4:06 [facility] Other xr shoulder RT min 2V*Dictation Location: [address] [employer] Other xr shoulder RT min 2V*Transcribed By: [facility] 03/23/[address] [place] [address] [facility] Other xr shoulder RT min 2V*Dictated By: Sravan Dickinson Jr, DO 03/23/[address] [place] [address] [facility] Other xr shoulder RT min 2V*Signed By:[employer] Other xr shoulder RT min 2V*03/23/[address] [place] [address] [facility] Other Coding Summary.on 90-68-4042Zvxoym Summary. CD:[id number]+PGhlYWQ+WC4NMAKdI68kmLEftB7VS7bCZW1SJCWBFHZWIW2PZY3qz ST1MJprE7BrlxPw [file] cHNl (more content not included)...[facility] HospitalHeart [facility] Vascular Office/Clinic Noteon 41-63-2956Vxwfn and Vascular Office/Clinic Note Chief Complaint Testing [...] after patient or guardian consented to allow [employer] to record this visit. ANAMARIA psychiatric clinical nurse specialist and provider reviewed before signing. ANAMARIA: [...] Family History Bipolar: Sister. Depression: Mother and Grandparent.[facility] Doctors HospitalComment on above:Result Comment: Electronically Signed By: Jay DAVEY, Samir Rivera\.br\Date and Time Signed: 09/02/21 09:25 EDT\.br\Electronically Co-Signed By: Rissa Arias\.br\Date and Time Co-Signed: 09/01/21 17:11 EDTCoding Summary.on 67-09-4462Tyyxax Summary. CD:[id number]:[id number]+PGhlYWQ+JZ0GSVUwV81quYHgeH7CW5gULD5MASPUMDHPJI3ROY4lw VD3QMvbM2BzzfTz [file] cHNl (more content not included)...NormalWilson HealthConsent for Treatmenton 03-07-3581Qjozfen for Treatment [id number]#1.00CD:127NormSelect Medical Specialty Hospital - AkronProgress Note-Physicianon 39-68-6371Mwoovvka Note-Physician [id number]#1.00CD:127NormSelect Medical Specialty Hospital - AkronHolter Monitoron 54-97-6821Sgzxie Nabxbpq48-PPSO HOLTER MONITOR ORDERING PHYSICIAN: Samir Christofferson, M.D. [...] READ BY: Mariam Salazar M.D. Dictated: 08/26/2021 [id number] Transcribed: 08/27/2021 cc:Samir Thompson M.D.[facility] Doctors HospitalComment on above: Result Comment: Electronically Signed By: Martin DAVEY, Mariam Galan\.br\Date and Time Signed: 08/27/21 10:21 EDTHolter Monitor [id number]:127NoWayne HospitalConsent for Treatmenton 58-21-3696Ykqwelt for Treatment [id number]#1.00CD:127NoWayne HospitalCoding Summary.on 52-66-3124Hhqtdh Summary. CD:[id number]:[id number]+PGhlYWQ+XE6QWZRlD52sjYPcrD2SD1hTGC1FJZNKIMFQBX2CBD8bh IZ0INgrG4KrkdMe [file] cHNl (more content not included)...NormalBethesda North Hospitaltre EKG Tracingson 57-93-4742Qgqmnw EKG Tracings [id number]#1.00CD:127[facility] Doctors HospitalConsent for Treatmenton 91-09-3681Gkgodoq for Treatment [id number]#1.00CD:127[facility] Doctors HospitalCoding Summary.on 19-72-8601Hxdjfp Summary. CD:[id number]:[id number]+PGhlYWQ+RI5KSUCbK42ygKZorR0TW6pQEO7VMPIJRBRBYN3NGV4bk QJ2IOahO5EreaDm [file] cHNl (more content not included)...[facility] HospitalProgress Note-Physicianon 37-24-2180Ddqcalmd Note-Physician [id number]#1.00CD:127NormSelect Medical Specialty Hospital - AkronHeart and Vascular Office/Clinic Noteon 58-05-1619Ylgru and Vascular Office/Clinic NoteChief Complaint Bradycardia History [...] rate increases with exercise. She presented to [facility] ER 2 weeks ago for suspected [...] after patient or guardian consented to allow [employer] to record this visit. ANAMARIA psychiatric clinical nurse specialist and provider reviewed before signing. ANAMARIA: [...] Tobacco Use:. Never Smokeles (more content not included)...[facility] Doctors HospitalComment on above:Result Comment: Electronically Signed By: Samir Thompson MD\.br\Date and Time Signed: 07/27/21 10:44 EDT\.br\Electronically Co-Signed By: Rissa Arias\.br\Date and Time Co-Signed: 07/24/21 16:24 EDTConsent for Treatmenton 46-65-4070Upnfgem for [id number]#1.00CD:[address] [place], [place] [address]Referrals Officeon 03-40-8636Bvyvtxeax Office [id number]#1.00CD:127OhioHealth Doctors HospitalBASIC METABOLIC PANELon 23-81-2933Rbwhe gap [Moles/Vol]8 mmol/LLow9 - 17 mmol/LMshelby memorial hospitaly Health- [place], KYBun/Cre RatioNOT REPORTEDMer Health- [...] body mass. Additional eGFR calculator available at: http://www.[employer]/multiple_crcl_2012.htm Glucose [Mass/Vol]99 mg/dL70 - 99 mg/dLMary Rutan Hospital, KYInterpretation and review of laboratory resultsAbnormalMary Rutan Hospital, KYPotassium [Moles/Vol]4.5 mmol/L3.7 - 5.3 mmol/LMOhioHealth, KYSodium [Moles/Vol]139 mmol/L135 - 144 mmol/[facility], KYUrea nitrogen [Mass/Vol]5 mg/dLLow6 - 20 mg/dLMary Rutan Hospital, KYBasic Metabolic Profon 05-08-2020(cont.)[facility] Greene MemorialComment on above:Result Comment: Average GFR for 20-29 years old: 116 mL/min/1.73sq m Chronic Kidney Disease: <60 mL/min/1.73sq m Kidney failure: <15 mL/min/1.73sq m eGFR calculated using average adult body mass. Additional eGFR calculator available at: http://www.[employer]/multiple_crcl_2012.htmPerformed By: #### CBC, PT, PTT, BMP #### [employer] [address] [place] [address] [phone] Director Of Child Welfare Services: Casey Marques MD #### RICKYT #### [facility] [address] [place] [address] Director Of Child Welfare Services: Dontae Ward gap [Moles/Vol]8 mmol/LLow9-17Twin City HospitalComment on above:Performed By: #### CBC, PT, PTT, BMP #### [facility] [address] [place] [address] Director Of Child Welfare Services: Casey Marques MD #### ANICOT #### [facility] [address] [place] [address] Director Of Child Welfare Services: XIN Wardalcium [Mass/Vol]9.2 mg/dLNormal8.6-10.4Twin City HospitalComment on above:Performed By: #### CBC, PT, PTT, BMP #### [facility] [address] [place] [address] [phone] Director Of Child Welfare Services: Casey Marques MD #### ANICOT #### [facility] [address] [place] [address] [phone] Director Of Child Welfare Services: XIN Wardhloride [Moles/Vol]105 mmol/PHyskfe51-969EjnsjTwin City HospitalComment on above:Performed By: #### CBC, PT, PTT, BMP #### [address] [phone] Director Of Child Welfare Services: Casey Marques MD #### ANICOT #### [facility] [address] [place] [address] [phone] Director Of Child Welfare Services: XIN WardO2 [Moles/Vol]26 mmol/BYsmfey53-76TtkcxTwin City HospitalComment on above:Performed By: #### CBC, PT, PTT, BMP #### [address] [phone] Director Of Child Welfare Services: Casey Marques MD #### ANICOT #### [facility] [address] [place] [address] Director Of Child Welfare Services: XIN Wardreatinine [Mass/Vol]0.67 mg/dLNormal0.50-0.90 [facility] City HospitalComment on above:Performed By: #### CBC, PT, PTT, BMP #### [facility] [address] [place] [address] [phone] Director Of Child Welfare Services: Casey Marques MD #### ANICOT #### [facility] [address] [place] [address] Director Of Child Welfare Services: Adolph Diza MDGFR, Amer>60Normal>60[facility] Suburban Medical CenterComment on above:Performed By: #### CBC, PT, PTT, BMP #### [facility] [address] [place] [address] [phone] Director Of Child Welfare Services: Casey Marques MD #### ANICOT #### [facility] [address] [place], [place] [phone] Director Of Child Welfare Services: Adolph Diaz MDGFR,non Amer>60Normal>60[facility]urban Medical CenterComment on above:Performed By: #### CBC, PT, PTT, BMP #### [facility] [address] [place] [address] [phone] Director Of Child Welfare Services: Casey Marques MD #### ANICOT #### [facility] [address] [place] [address] Director Of Child Welfare Services: Adolph Diaz MDGlucose [Mass/Vol]99 mg/aSCfrwpe00-07Yitlu [facility] Medical CenterComment on above:Performed By: #### CBC, PT, PTT, BMP #### [facility] [address] [place] [address] [phone] Director Of Child Welfare Services: Casey Marques MD #### ANICOT #### [facility] [address] [place] [address] Director Of Child Welfare Services: Brianna Wardssium [Moles/Vol]4.5 mmol/LNormal3.7-5.3[facility]urban Medical CenterComment on above:Performed By: #### CBC, PT, PTT, BMP #### [facility] [address] [place] [address] [phone] Director Of Child Welfare Services: Casey Marques MD #### ANICOT #### [facility] [address] [place] [address] Director Of Child Welfare Services: Adolph Diaz, MDSodium [Moles/Vol]139 mmol/GDxcixg546-302JvvygTwin City HospitalComment on above:Performed By: #### CBC, PT, PTT, BMP #### [facility] [address] [place] [address] Director Of Child Welfare Services: Casey Marques MD #### ANICOT #### [facility] [address] [place], [place] [phone] Director Of Child Welfare Services: Adolph Diaz MDUrea nitrogen [Mass/Vol]5 mg/dLLow6-20[facility] City HospitalComment on above:Performed By: #### CBC, PT, PTT, BMP #### [facility] [address] [place] [phone] Director Of Child Welfare Services: Casey Marques MD #### ANICOT #### [facility] [address] [place], [place] [id number] Director Of Child Welfare Services: ANTONIETA Ward/CRE JiOT REPORTEDNormal9-20[facility] City HospitalComment on above:Performed By: #### CBC, PT, PTT, BMP #### [facility] [address] [place] [phone] Director Of Child Welfare Services: Casey Marques MD #### ANICOT #### [facility] [address] [place], [place] [phone] Director Of Child Welfare Services: JACINTO Wardtaging:NOT REPORTEDNormalTwin City HospitalComment on above:Performed By: #### CBC, PT, PTT, BMP #### [facility] [address] [place] [address] Director Of Child Welfare Services: Casey Marques MD #### ANICOT #### [facility] [address] [place] [address] Director Of Child Welfare Services: Adolph Diaz [facility] WITH AUTO DIFFERENTIALon 98-91-5480Umhzvohgl (Bld) [#/Vol]0.06 10*3/[facility], KYBasophils/100 WBC (Bld)1 %0 - 2 % [facility], IADifferential TypeNOT REPORTEDMary [facility] Hospital, KYEosinophils (Bld) [#/Vol]0.35 10*3/[facility], KYEosinophils/100 WBC (Bld)3 %1 - 4 %[facility], IAErythrocyte distribution width (RBC) [Ratio]14.7 %High11.8 - 14.4 %[facility], IAHematocrit (Bld) [Volume fraction]38.4 %36.3 - 47.1 %[facility], IAHemoglobin (Bld) [Mass/Vol]12.0 g/dL11.9 - 15.1 g/dLMary [facility]an Hospital, IAImmature granulocytes (Bld) [#/Vol]1 %[address] [place] [address], [place] Immature granulocytes (Bld) [#/Vol]0.06 10*3/[facility], [place] Interpretation and review of laboratory resultsAbnormBarnesville Hospital, [place] Lymphocytes (Bld) [#/Vol]2.21 10*3/[facility], NORMALymphocytes/100 WBC (Bld)21 %Low24 - 43 %[facility], IAMCH (RBC) [Entitic mass]26.5 pg25.2 - 33.5 pgMary Rutan Hospital, IAMCHC (RBC) [Mass/Vol]31.3 g/dL28.4 - 34.8 g/dLMary [facility]an Hospital, IAMCV (RBC) [Entitic vol]85.0 fL82.6 - 102.9 fLMary Rutan Hospital, [place] Monocytes (Bld) [#/Vol]0.71 10*3/[facility], KYMonocytes/100 WBC (Bld)7 %3 - 12 %[facility], IAPlatelet mean volume (Bld) [Entitic vol]8.6 fL8.1 - 13.5 fLMary Rutan Hospital, IAPlatelets (Bld) [#/Vol]256 10*3/[facility], KYPlatelets (Bld) [#/Vol]NOT REPORTEDOhioHealth Doctors Hospital (Bld) [#/Vol]4.52 10*6/uL3.95 - 5.11 m/[facility], [facility] morphology finding Nom (Bld) ANISOCYTOSIS PRESENTMary Rutan Hospital, IASegmented neutrophils/100 WBC (Bld)67 % High36 - 65 %[place], KYSegs Absolute7.30[facility], IAWBC (Bld) [#/Vol]10.7 10*3/uLMary Rutan Hospital, IAWBC (Bld) [#/Vol]0.0 10*3/uL0.0 per 100 WBCMary Rutan Hospital, [facility] MorphologyNOT REPORTEDSelect Medical Specialty Hospital - Trumbull with Diffon 88-89-7500Ris. Basophil0.06 k/uLNormal0.00-0.20Twin City HospitalComment on above:Performed By: #### CBC, PT, PTT, BMP #### [employer] [facility] [address] [place] [address] [phone] Director Of Child Welfare Services: Casey Marques MD #### ANALI #### [facility] [address] [place] [address] Director Of Child Welfare Services: Ashley Ward.Imm.Granulocyte0.06 k/uLNormal0.00-0.30[facility] City HospitalComment on above:Performed By: #### CBC, PT, PTT, BMP #### [employer] [facility] [address] [place] [address] Director Of Child Welfare Services: Casey Marques MD #### RICKYT #### [facility] [address] [place] [address] Director Of Child Welfare Services: Ashley Ward.Neutrophil (Seg)7.30 k/uLNormal1.50-8.10T[facility] City HospitalComment on above:Performed By: #### CBC, PT, PTT, BMP #### [facility] [address] [place] [address] Director Of Child Welfare Services: Casey Marques MD #### ANICOT #### [facility] [address] [place], [place] [id number] Director Of Child Welfare Services: Adolph Diaz MDBasophils/100 WBC (Bld)1 %Normal0-2MRegional Medical Center of San JoseComment on above:Performed By: #### CBC, PT, PTT, BMP #### [facility] [address] [place] [address] Director Of Child Welfare Services: Casey Marques MD #### ANICOT #### [address] [phone] Director Of Child Welfare Services: Adolph Diaz MDEosinophils (Bld) [#/Vol]0.35 10*3/uLNormal 0.00-0.44T[facility] City HospitalComment on above:Performed By: #### CBC, PT, PTT, BMP #### [address] [address] Director Of Child Welfare Services: Casey Marques MD #### ANICOT #### [address] [phone] Director Of Child Welfare Services: Adolph Diaz MDEosinophils/100 WBC (Bld)3 %Normal1-4T[facility] City HospitalComment on above:Performed By: #### CBC, PT, PTT, BMP #### [address] [address] Director Of Child Welfare Services: Casey Marques MD #### ANICOT #### [address] [phone] Director Of Child Welfare Services: Adolph Diaz MDErythrocyte distribution width (RBC) [Ratio]14.7 %High11.8-14.4T[facility] City HospitalComment on above:Performed By: #### CBC, PT, PTT, BMP #### [facility] [address] [place] [address] Director Of Child Welfare Services: Casey Marques MD #### ANICOT #### [facility] [address] [place] [address] Director Of Child Welfare Services: Adolph Diaz MDHematocrit (Bld) [Volume fraction]38.4 %Normal 36.3-47.1MRegional Medical Center of San JoseComment on above:Performed By: #### CBC, PT, PTT, BMP #### [facility] [address] [place] [address] Director Of Child Welfare Services: Casey Marques MD #### ANICOT #### [facility] [address] [place] [address] Director Of Child Welfare Services: Adolph Diaz MDHemoglobin (Bld) [Mass/Vol]12.0 g/dLNormal 11.9-15.1Mshelby memorial hospitaly Suburban Medical CenterComment on above:Performed By: #### CBC, PT, PTT, BMP #### [facility] [address] [place] [address] Director Of Child Welfare Services: Casey Marques MD #### ANICOT #### [facility] [address] [place], [place] [phone] Director Of Child Welfare Services: Adolph Diaz MDImmature granulocytes/100 WBC (Bld)1 %Mshf4QzocjKaiser Permanente Medical Center Santa RosaComment on above:Performed By: #### CBC, PT, PTT, BMP #### [facility] [address] [place] [address] Director Of Child Welfare Services: Casey Marques MD #### ANICOT #### [facility] [address] [place], [place] [id number] Director Of Child Welfare Services: Adolph Diaz MDLymphocytes (Bld) [#/Vol]2.21 10*3/uLNormal 1.10-3.70T[facility] City HospitalComment on above:Performed By: #### CBC, PT, PTT, BMP #### [address] [address] Director Of Child Welfare Services: Casey Marques MD #### ANICOT #### [facility] [address] [place], [place] [id number] Director Of Child Welfare Services: Adolph Diaz MDLymphocytes/100 WBC (Bld)21 %Brc55-07PkzkcTwin City HospitalComment on above:Performed By: #### CBC, PT, PTT, BMP #### [place] [address] Director Of Child Welfare Services: Casey Marques MD #### ANICOT #### [address] [phone] Director Of Child Welfare Services: NIMCO Ward (RBC) [Entitic mass]26.5 ksPzhurt17.2-33.5 [facility] City HospitalComment on above:Performed By: #### CBC, PT, PTT, BMP #### [address] [phone] Director Of Child Welfare Services: Casey Marques MD #### ANICOT #### [address] [phone] Director Of Child Welfare Services: NIMCO WardC (RBC) [Mass/Vol]31.3 g/qQYexuvh77.4-34.8 [facility] HospitalComment on above:Performed By: #### CBC, PT, PTT, BMP #### [address] [phone] Director Of Child Welfare Services: Casey Marques MD #### ANICOT #### [facility] [address] [place], [place] [id number] Director Of Child Welfare Services: Adolph Diaz, MDMCV (RBC) [Entitic vol]85.0 lCMbxfrf94.6-102.9 [facility] HospitalComment on above:Performed By: #### CBC, PT, PTT, BMP #### [address] [address] Director Of Child Welfare Services: Casey Marques MD #### ANICOT #### [facility] [address] [place] [address] Director Of Child Welfare Services: Adolph Diaz MDMonocytes (Bld) [#/Vol]0.71 10*3/uLNormal 0.10-1.20[facility] City HospitalComment on above:Performed By: #### CBC, PT, PTT, BMP #### [address] [address] Director Of Child Welfare Services: Casey Marques MD #### ANICOT #### [facility] [address] [place] [address] Director Of Child Welfare Services: YESSICA Wardonocytes/100 WBC (Bld)7 %Normal3-12T[facility] City HospitalComment on above:Performed By: #### CBC, PT, PTT, BMP #### [address] [address] Director Of Child Welfare Services: Casey Marques MD #### ANICOT #### [facility] [address] [place] [address] Director Of Child Welfare Services: Adolph Diaz MDNeutrophil (Seg)67 %Kayw12-14GfqyiTwin City HospitalComment on above:Performed By: #### CBC, PT, PTT, BMP #### [address] [address] Director Of Child Welfare Services: Casey Marques MD #### ANICOT #### [facility] [address] [place] [address] Director Of Child Welfare Services: Adolph Diaz MDNRBC Automated0.0 per 100 WBCNormal0.0T[facility] City HospitalComment on above:Performed By: #### CBC, PT, PTT, BMP #### [address] [address] Director Of Child Welfare Services: Casey Marques MD #### ANICOT #### [facility] [address] [place] [address] Director Of Child Welfare Services: Stephan Ward mean volume (Bld) [Entitic vol]8.6 fL Normal8.1-13.5T[facility] City HospitalComment on above:Performed By: #### CBC, PT, PTT, BMP #### [address] [address] Director Of Child Welfare Services: Casey Marques MD #### ANICOT #### [facility] [address] [place] [address] Director Of Child Welfare Services: Yajaira Ward (Bld) [#/Vol]256 10*3/tBHvvxde253-430 [facility] HospitalComment on above:Performed By: #### CBC, PT, PTT, BMP #### [address] [address] Director Of Child Welfare Services: Casey Marques MD #### ANICOT #### [facility] [address] [place] [address] Director Of Child Welfare Services: Adolph Diaz MDRBC (Bld) [#/Vol]4.52 10*6/uLNormal3.95-5.11T[facility] City HospitalComment on above:Performed By: #### CBC, PT, PTT, BMP #### [address] [address] Director Of Child Welfare Services: Casey Marques MD #### ANICOT #### [facility] [address] [place] [address] Director Of Child Welfare Services: RAYMON Ward morphology finding Nom (Bld)ANISOCYTOSIS PRESENTKettering Health Greene MemorialComment on above:Performed By: #### CBC, PT, PTT, BMP #### [facility] [address] [place] [address] Director Of Child Welfare Services: Casey Marques MD #### ANICOT #### [facility] [address] [place] [address] Director Of Child Welfare Services: DIEGO Ward (Bld) [#/Vol]10.7 10*3/uLNormal3.5-11.3[facility] Suburban Medical CenterComment on above:Performed By: #### CBC, PT, PTT, BMP #### [facility] [address] [place] [address] Director Of Child Welfare Services: Casey Marques MD #### ANICOT #### [facility] [address] [place] [address] Director Of Child Welfare Services: Arnav Ward PerformedNOT REPORTEDKettering Health Greene MemorialComment on above:Performed By: #### CBC, PT, PTT, BMP #### [facility] [address] [place] [address] Director Of Child Welfare Services: Casey Marques MD #### ANICOT #### [facility] [address] [place] [address] Director Of Child Welfare Services: Stephan Ward EstimateNOT REPORTEDKettering Health Greene MemorialComment on above:Performed By: #### CBC, PT, PTT, BMP #### [facility] [address] [place] [address] Director Of Child Welfare Services: Casey Marques MD #### ANICOT #### [facility] [address] [place] [address] Director Of Child Welfare Services: DIEGO Ward MorphologyNOT REPORTEDNormalTwin City HospitalComment on above:Performed By: #### CBC, PT, PTT, BMP #### [employer] [address] [place] [address] [phone] Director Of Child Welfare Services: Casey Marques MD #### ANICOT #### [facility] [address] [place] [address] Director Of Child Welfare Services: JACINTO Wardurgical Pathologyon [id number] Pathology Report-- Diagnosis -- STOMACH, SLEEVE GASTRECTOMY: [...] with no areas of granularity or masses. Log Washer sections 1cs. tm Microscopic Description Sections of gastric mucosa show increased lymphocytes and plasma cells in the lamina propria. There is no evidence of acute inflammation, intestinal metaplasia or dysplasia. There is no evidence of organisms suspicious for Helicobacter with the routine H&E stains. SURGICAL PATHOLOGY CONSULTATION Patient Name: JAZ SANDERS [facility] Rec: [id number] Path Number: [id number] [facility] ANATOMIC PATHOLOGY [address] [place] [phone] [facility]- [place], KYBasic Metabolic Panelon [id number] gap [Moles/Vol]13 mmol/L9 - 17 mmol/LMercy Health- [place], KYBun/Cre RatioNOT REPORTEDMercy Health- [place], KYCalcium [Mass/Vol]9.4 mg/dL8.6 - 10.4 mg/dLMercy Health- [place], KYChloride [Moles/Vol]104 mmol/L98 - 107 mmol/LMercy Health- [place], [place] CO2 [Moles/Vol]23 mmol/L20 - 31 mmol/[facility], KYCreatinine [Mass/Vol] 0.73 mg/dL0.5 - 0.9 mg/dLMary [facility], KYGFR >60>60 mL/min [facility], KYGFR Non->60>60 mL/minMary Rutan Hospital, [place] GFR/1.73 sq M predicted among non-blacks MDRD (S/P/Bld) [Vol rate/Area]NOT REPORTED[facility], KYGFR/1.73 sq M predicted among non-blacks MDRD (S/P/Bld) [Vol rate/Area][facility], KYComment on above:Average GFR for 20-29 years old: 116 mL/min/1.73sq m Chronic Kidney Disease: <60 mL/min/1.73sq m Kidney failure: <15 mL/min/1.73sq m eGFR calculated using average adult body mass. Additional eGFR calculator available at: http://www.[employer]/multiple_crcl_2011.htm Glucose [Mass/Vol]98 mg/dL70 - 99 mg/dLMary Rutan Hospital, KYPotassium [Moles/Vol] 4.1 mmol/L3.7 - 5.3 mmol/[facility], KYSodium [Moles/Vol]140 mmol/L135 - 144 mmol/[facility], KYUrea nitrogen [Mass/Vol]6 mg/dL6 - 20 mg/dLMary [facility]an [facility], KYBasic Metabolic Profon 05-07-2020(cont.)[facility] Greene MemorialComment on above:Result Comment: Average GFR for 20-29 years old: 116 mL/min/1.73sq m Chronic Kidney Disease: <60 mL/min/1.73sq m Kidney failure: <15 mL/min/1.73sq m eGFR calculated using average adult body mass. Additional eGFR calculator available at: http://www.[employer]/multiple_crcl_2012.htmPerformed By: #### CBC, BMP #### [employer] [facility] [place] [address] Director Of Child Welfare Services: Casey Marques MDAnion gap [Moles/Vol]13 mmol/LNormal9-17T[facility] City HospitalComment on above:Performed By: #### CBC, BMP #### [facility] [address] [place] [address] Director Of Child Welfare Services: Casey Marques MDCalcium [Mass/Vol]9.4 mg/dLNormal8.6-10.4T[facility] City HospitalComment on above:Performed By: #### CBC, BMP #### [facility] [address] [place] [address] Director Of Child Welfare Services: Casey Marques MDChloride [Moles/Vol]104 mmol/KUqgtyk83-761VzvocTwin City HospitalComment on above:Performed By: #### CBC, BMP #### [facility] [address] [place] [address] Director Of Child Welfare Services: Casey Marques MDCO2 [Moles/Vol]23 mmol/KNqmkth23-77LwjgvTwin City HospitalComment on above:Performed By: #### CBC, BMP #### [facility] [address] [place] [address] Director Of Child Welfare Services: Casey Marques MDCreatinine [Mass/Vol]0.73 mg/dLNormal0.50-0.90 [facility] HospitalComment on above:Performed By: #### CBC, BMP #### [facility] [address] [place] [address] Director Of Child Welfare Services: SIRISHA Capellan, Amer>60Normal>60[facility] City HospitalComment on above:Performed By: #### CBC, BMP #### [facility] [address] [place] [address] Director Of Child Welfare Services: Casey Madoff, MDGFR,non Amer>60Normal>60[facility] City HospitalComment on above:Performed By: #### CBC, BMP #### [facility] [address] [place] [address] Director Of Child Welfare Services: Casey Marques MDGlucose [Mass/Vol]98 mg/cRBzdccg98-52DmtzfRegional Medical Center of San JoseComment on above:Performed By: #### CBC, BMP #### [facility] [address] [place] [address] Director Of Child Welfare Services: VERONICA Capellanotassium [Moles/Vol]4.1 mmol/LNormal3.7-5.3 [facility] HospitalComment on above:Performed By: #### SAGRARIO, BMP #### [address] [address] Director Of Child Welfare Services: JACINTO Capellanodium [Moles/Vol]140 mmol/CFlvtnf482-197NpocrTwin City HospitalComment on above:Performed By: #### SAGRARIO, BMP #### [address] [address] Director Of Child Welfare Services: Casey Marques MDUrea nitrogen [Mass/Vol]6 mg/dLNormal6-20[facility] HospitalComment on above:Performed By: #### SAGRARIO, BMP #### [address] [address] Director Of Child Welfare Services: Casey Marques MDBUN/CRE RatioNOT REPORTEDNormal9-20[facility] City HospitalComment on above:Performed By: #### ASGRARIO, BMP #### [address] [address] Director Of Child Welfare Services: JACINTO Capellantaging:NOT REPORTEDNormalTwin City HospitalComment on above:Performed By: #### CBC, BMP #### [facility] [address] [place] [address] Director Of Child Welfare Services: Nacho Capellan 43-57-4059Nhcehlrejon distribution width (RBC) [Ratio]14.4 %Mfxpbk94.8-14.4T[facility] City HospitalComment on above:Performed By: #### CBC, BMP #### [address] [address] Director Of Child Welfare Services: Casey Marques MDHematocrit (Bld) [Volume fraction]40.4 %Normal 36.3-47.1MRegional Medical Center of San JoseComment on above:Performed By: #### CBC, BMP #### [address] [address] Director Of Child Welfare Services: Casey Marques MDHemoglobin (Bld) [Mass/Vol]12.6 g/dLNormal 11.9-15.1MRegional Medical Center of San JoseComment on above:Performed By: #### CBC, BMP #### [address] [address] Director Of Child Welfare Services: YESSICA CapellanCH (RBC) [Entitic mass]26.1 eoKpzexe12.2-33.5 [facility] HospitalComment on above:Performed By: #### CBC, BMP #### [address] [address] Director Of Child Welfare Services: YESSICA CapellanCHC (RBC) [Mass/Vol]31.2 g/yOUvooob03.4-34.8 [facility] HospitalComment on above:Performed By: #### CBC, BMP #### [address] [address] Director Of Child Welfare Services: YESSICA CapellanCV (RBC) [Entitic vol]83.8 aAJnsmft89.6-102.9 [facility] HospitalComment on above:Performed By: #### CBC, BMP #### [address] [address] Director Of Child Welfare Services: Casey Marques MDNRBC Automated0.0 per 100 WBCNormal0.0T[facility] City HospitalComment on above:Performed By: #### CBC, BMP #### [facility] [address] [place] [address] Director Of Child Welfare Services: Jose Capellantelet mean volume (Bld) [Entitic vol]8.7 fL Normal8.1-13.5T[facility] City HospitalComment on above:Performed By: #### CBC, BMP #### [address] [address] Director Of Child Welfare Services: VERONICA Capellanlatelets (Bld) [#/Vol]289 10*3/rYZjbeai064-870 [facility] HospitalComment on above:Performed By: #### CBC, BMP #### [address] [address] Director Of Child Welfare Services: Casey Marques MDRBC (Bld) [#/Vol]4.82 10*6/uLNormal3.95-5.11 [facility] HospitalComment on above:Performed By: #### CBC, BMP #### [address] [address] Director Of Child Welfare Services: Casey Marques MDWBC (Bld) [#/Vol]13.7 10*3/uLHigh3.5-11.3MRegional Medical Center of San JoseComment on above:Performed By: #### CBC, BMP #### [facility] [address] [place] [address] Director Of Child Welfare Services: Casey Marques MDErythrocyte distribution width (RBC) [Ratio]14.4 %11.8 - 14.4 %[facility], KYHematocrit (Bld) [Volume fraction]40.4 %36.3 - 47.1 %[facility], KYHemoglobin (Bld) [Mass/Vol]12.6 g/dL11.9 - 15.1 g/dL [facility], IAInterpretation and review of laboratory resultsAbnormBarnesville Hospital, IAMCH (RBC) [Entitic mass]26.1 pg25.2 - 33.5 pgMount [place], [place] MCHC (RBC) [Mass/Vol]31.2 g/dL28.4 - 34.8 g/dLMount Angel, KYMCV (RBC) [Entitic vol]83.8 fL82.6 - 102.9 fLMount Angel, KYPlatelet mean volume (Bld) [Entitic vol]8.7 fL8.1 - 13.5 fLMary Rutan Hospital, IAPlatelets (Bld) [#/Vol]289 10*3/[facility], IARBC (Bld) [#/Vol]4.82 10*6/uL3.95 - 5.11 m/[facility], IAWBC (Bld) [#/Vol]0.0 10*3/uL0.0 per 100 WBCMount Angel, KYWBC (Bld) [#/Vol]13.7 10*3/uLHighMount Angel, KYFL ESOPHAGRAMon [id number] ESOPHAGRAMEXAMINATION: SINGLE CONTRAST ESOPHAGRAM 05/07/2020 HISTORY: ORDERING [...] Signed by: Petr Cullen MD 05/07/20 Final resultNoDayton Children's HospitalEXAMINATION: SINGLE CONTRAST ESOPHAGRAM 05/07/2020 HISTORY: ORDERING [...] gastric sleeve. No obstruction. No extravasation of contrast.[facility] Surreal GamesHEARTLAND BEHAVIORAL HEALTH SERVICESGerardo Mhpn Incoming Radiant Results From [employer] - 05/07/2020 10:04 AM EST EXAMINATION: SINGLE [...] contrast. IMPRESSION: No extravasation of contrast. [facility] HospitalProfigHEARTLAND BEHAVIORAL HEALTH SERVICESJacob extravasation of contrast.[facility] Surreal GamesHEARTLAND BEHAVIORAL HEALTH SERVICESNORMAPOCT urine pregnancyon [id number] HCG ( test) Ql (U)NegativeNEGATIVEMary [facility]an Hospital, NORMAComment on above:Specimens with hCG levels near the threshold of the test (25 mIU/mL) may give a negative or indeterminate result. In such cases, another test should be performed with a new specimen in 48-72 hours. If early is suspected clinically in this setting, correlation with quantitative serum b-hCG level is suggested. Basic Metabolic Panelon 30-73-1277Cjdkb gap [Moles/Vol]10 mmol/L9 - 17 mmol/L [facility] Surreal GamesHEARTLAND BEHAVIORAL HEALTH SERVICES, KYBun/Cre RatioNOT REPORTEDMary [facility], KYCalcium [Mass/Vol]9.5 mg/dL8.6 - 10.4 mg/dLMary [facility]an Hospital, KYChloride [Moles/Vol]103 mmol/L98 - 107 mmol/LMercAdventHealth for Women, KYCO2 [Moles/Vol]19 mmol/LLow20 - 31 mmol/LMOhioHealth, KYCreatinine [Mass/Vol]0.9 mg/dL0.5 - 0.9 mg/dLMary [facility]an Hospital, KYGFR >60>60 mL/minMary Rutan Hospital, KYGFR Non- >60>60 mL/minMary Rutan Hospital, KYGFR/1.73 sq M predicted among non-blacks MDRD (S/P/Bld) [Vol rate/Area]NOT REPORTED[facility], [place] GFR/1.73 sq M predicted among non-blacks MDRD (S/P/Bld) [Vol rate/Area][facility], KYComment on above:Average GFR for 20-29 years old: 116 mL/min/1.73sq m Chronic Kidney Disease: <60 mL/min/1.73sq m Kidney failure: <15 mL/min/1.73sq m eGFR calculated using average adult body mass. Additional eGFR calculator available at: http://www.[employer]/datatracker_crcl_2011.htm Glucose [Mass/Vol]162 mg/zGHjit72 - 99 mg/dLMary [facility]an Hospital, KYInterpretation and review of laboratory resultsAbnormalMary [facility] Hospital, KYPotassium [Moles/Vol]3.9 mmol/L3.7 - 5.3 mmol/[facility], KYSodium [Moles/Vol]132 mmol/ROmj493 - 144 mmol/[facility], KYUrea nitrogen [Mass/Vol]10 mg/dL6 - 20 mg/dLMary [facility], KYBasic Metabolic Profon 05-06-2020(cont.)NormalTwin City HospitalComment on above:Result Comment: Average GFR for 20- 29 years old: 116 mL/min/1.73sq m Chronic Kidney Disease: <60 mL/min/1.73sq m Kidney failure: <15 mL/min/1.73sq m eGFR calculated using average adult body mass. Additional eGFR calculator available at: http://www.[employer]/multiple_crcl_2012.htmPerformed By: #### CBC, BMP #### [employer] [address] [place] [address] Director Of Child Welfare Services: Casey Marques MDAnion gap [Moles/Vol]10 mmol/LNormal9-17[facility] City HospitalComment on above:Performed By: #### CBC, BMP #### [facility] [address] [place] [address] Director Of Child Welfare Services: Casey Marques MDCalcium [Mass/Vol]9.5 mg/dLNormal8.6-10.4[facility] City HospitalComment on above:Performed By: #### CBC, BMP #### [facility] [address] [place] [address] Director Of Child Welfare Services: Casey Marques MDChloride [Moles/Vol]103 mmol/HHccxxr95-012ShlxhTwin City HospitalComment on above:Performed By: #### CBC, BMP #### [facility] [address] [place] [address] Director Of Child Welfare Services: Casey Marques MDCO2 [Moles/Vol]19 mmol/DHdg30-11NerdfTwin City HospitalComment on above:Performed By: #### CBC, BMP #### [facility] [address] [place] [address] Director Of Child Welfare Services: Casey Marques MDCreatinine [Mass/Vol]0.90 mg/dLNormal0.50-0.90 [facility] HospitalComment on above:Performed By: #### CBC, BMP #### [facility] [address] [place] [address] Director Of Child Welfare Services: SIRISHA Capellan, Amer>60Normal>60[facility] City HospitalComment on above:Performed By: #### CBC, BMP #### [facility] [address] [place] [address] Director Of Child Welfare Services: SIRISHA Capellan,non Amer>60Normal>60[facility] City HospitalComment on above:Performed By: #### CBC, BMP #### [facility] [address] [place] [address] Director Of Child Welfare Services: Casey Marques MDGlucose [Mass/Vol]162 mg/gGYcxc67-56CswsvRegional Medical Center of San JoseComment on above:Performed By: #### CBC, BMP #### [facility] [address] [place] [address] Director Of Child Welfare Services: Casey Marques MDPotassium [Moles/Vol]3.9 mmol/LNormal3.7-5.3 [facility] HospitalComment on above:Performed By: #### CBC, BMP #### [address] [address] Director Of Child Welfare Services: JACINTO Capellanodium [Moles/Vol]132 mmol/TYyo210-512RxwlrTwin City HospitalComment on above:Performed By: #### SAGRARIO, BMP #### [address] [address] Director Of Child Welfare Services: Casey Marques MDUrea nitrogen [Mass/Vol]10 mg/dLNormal6-20[facility] HospitalComment on above:Performed By: #### CBC, BMP #### [address] [address] Director Of Child Welfare Services: ROSALBA CapellanN/CRE RatioNOT REPORTEDNormal9-20[facility] HospitalComment on above:Performed By: #### CBC, BMP #### [address] [address] Director Of Child Welfare Services: JACINTO Capellantaging:NOT REPORTEDNormalTwin City HospitalComment on above:Performed By: #### CBC, BMP #### [address] [address] Director Of Child Welfare Services: Nacho Capellan 45-82-4136Wgtwroqoyxg distribution width (RBC) [Ratio]14.6 %High11.8-14.4T[facility] City HospitalComment on above:Performed By: #### CBC, BMP #### [address] [address] Director Of Child Welfare Services: Casey Marques MDHematocrit (Bld) [Volume fraction]42.5 %Normal 36.3-47.1MRegional Medical Center of San JoseComment on above:Performed By: #### CBC, BMP #### [address] [address] Director Of Child Welfare Services: Casey Marques MDHemoglobin (Bld) [Mass/Vol]12.8 g/dLNormal 11.9-15.1MRegional Medical Center of San JoseComment on above:Performed By: #### CBC, BMP #### [address] [address] Director Of Child Welfare Services: YESSICA CapellanCH (RBC) [Entitic mass]26.9 pcHrvhzc84.2-33.5 [facility] HospitalComment on above:Performed By: #### CBC, BMP #### [address] [address] Director Of Child Welfare Services: YESSICA CapellanCHC (RBC) [Mass/Vol]30.1 g/bIXeepbm94.4-34.8 [facility] HospitalComment on above:Performed By: #### CBC, BMP #### [address] [address] Director Of Child Welfare Services: YESSICA CapellanCV (RBC) [Entitic vol]89.3 dPUgmcdd76.6-102.9 [facility] HospitalComment on above:Performed By: #### CBC, BMP #### [address] [address] Director Of Child Welfare Services: RAMONE Capellan Automated0.0 per 100 WBCNormal0.0[facility] City HospitalComment on above:Performed By: #### CBC, BMP #### [facility] [address] [place] [address] Director Of Child Welfare Services: Jose Capellantebrigid mean volume (Bld) [Entitic vol]8.4 fL Normal8.1-13.5[facility] City HospitalComment on above:Performed By: #### CBC, BMP #### [facility] [address] [place] [address] Director Of Child Welfare Services: Jose Capellantelets (Bld) [#/Vol]300 10*3/iMRxnhzq375-749 [facility] HospitalComment on above:Performed By: #### CBC, BMP #### [facility] [address] [place] [address] Director Of Child Welfare Services: MADDI CapellanBC (Bld) [#/Vol]4.76 10*6/uLNormal3.95-5.11 [facility] HospitalComment on above:Performed By: #### CBC, BMP #### [address] [address] Director Of Child Welfare Services: DIEGO Capellan (Bld) [#/Vol]14.3 10*3/uLHigh3.5-11.3MRegional Medical Center of San JoseComment on above:Performed By: #### CBC, BMP #### [facility] [address] [place] [address] Director Of Child Welfare Services: NIDIA Capellan without Diffon 67-91-1877Gtyfymnluyn distribution width (RBC) [Ratio]14.6 %High11.8 - 14.4 %[place], [place] Hematocrit (Bld) [Volume fraction]42.5 %36.3 - 47.1 %[place], [place] Hemoglobin (Bld) [Mass/Vol]12.8 g/dL11.9 - 15.1 g/dLMount [place], [place] Interpretation and review of laboratory resultsAbnormalGrand Lake Joint Township District Memorial HospitalH (RBC) [Entitic mass]26.9 pg25.2 - 33.5 pgMount [place], KYMCHC (RBC) [Mass/Vol]30.1 g/dL28.4 - 34.8 g/dLMount [place], KYMCV (RBC) [Entitic vol] 89.3 fL82.6 - 102.9 fLMount Angel, KYPlatelet mean volume (Bld) [Entitic vol]8.4 fL8.1 - 13.5 fLMount Angel, KYPlatelets (Bld) [#/Vol]300 10*3/uL [place], KYRBC (Bld) [#/Vol]4.76 10*6/uL3.95 - 5.11 m/uLMount Angel, KYWBC (Bld) [#/Vol]14.3 10*3/uLHighMount Angel, KYWBC (Bld) [#/Vol]0.0 10*3/uL0.0 per 100 WBCMount Angel, KYSurgical Pathologyon 05-06-2020 Surgical Pathology(NOTE) -- Diagnosis [...] with no areas of granularity or masses. Log Washer sections 1cs. tm Microscopic Description Sections of gastric mucosa show increased lymphocytes and plasma cells in the lamina propria. There is no evidence of acute inflammation, intestinal metaplasia or dysplasia. There is no evidence of organisms suspicious for Helicobacter with the routine BRI stains. SURGICAL PATHOLOGY CONSULTATION Patient Name: JAZ SANDERS [facility] Rec: [id number] Path Number: [id number] [facility] ANATOMIC PATHOLOGY [address] [place] [phone] NoDayton Children's HospitalComment on above: Performed By: #### CBC, PT, PTT, BMP #### [facility] [address] [place] [id number] Director Of Child Welfare Services: Casey Marques MD #### ANICOT #### [facility] [address] [place] [address] Director Of Child Welfare Services: YU WardCoV-2on 58-47-0469LGNS-CoV-2NSelect Medical Cleveland Clinic Rehabilitation Hospital, BeachwoodComment on above:Performed By: #### COVID #### [address] [phone] Director Of Child Welfare Services: Tracie Capellan2Not DetectedNoalNOTDEParkview HealthComment on above:Result Comment: The specimen is NEGATIVE [...] this assay. Fact sheet for Healthcare Providers: https://www.fda.gov/media/769863/download Fact sheet for Patients: https://www.fda.gov/media/892996/download METHODOLOGY: RT-PCRPerformed By: #### COVID #### [facility] [address] [place] [address] Director Of Child Welfare Services: YU CapellanCoV-2,[facility] Comment on above:Performed By: #### COVID #### [facility] [address] [place] [address] Director Of Child Welfare Services: YU CapellanCoV-2on 45-99-0130GIYJ-CoV-2 Source .NASOPHARYNGEAL SWABThe University of Toledo Medical CenterComment on above:Performed By: #### COVID #### [facility] [address] [place] [address] Director Of Child Welfare Services: Ilana Capellan [address]-QZ-Wozdxtba<2NSt. Mary's Medical CenterComment on above:Performed By: #### CBC, PT, PTT, BMP #### [facility] [address] [place] [address] Director Of Child Welfare Services: Casey Marques MD #### ANICOT #### [facility] [address] [place], [place] [id number] Director Of Child Welfare Services: Ariella Ward<2NormalTwin City Hospital Comment on above:Performed By: #### CBC, PT, PTT, BMP #### [facility] [address] [place] [address] Director Of Child Welfare Services: Casey Marques MD #### ANICOT #### [facility] [address] [place], [place] [id number] Director Of Child Welfare Services: Jaja Wardotine<2NormalTwin City Hospital Comment on above:Result Comment: (NOTE) Consistent [...] positive. Test developed and characteristics determined by [employer]. See Compliance Statement B: [email or web address] Performed By: [facility] [address] [place] [address] Bridge Ironworker: VERONICA Barerformed By: #### CBC, PT, PTT, BMP #### [employer] [facility] [place] [address] Director Of Child Welfare Services: Casey Marques MD #### ANICOT #### [employer] [address] [place] [address] Director Of Child Welfare Services: Shani WardTaylor Regional Hospital [id number]-FE-Qbbvczjc<2ng/mL [facility]- [place], KYCotinine<2ng/mLMerWeDidIt Health- [place], KYNicotine<2ng/mLMercy Health- [place], KYComment on [...] positive. Test developed and characteristics determined by [employer]. See Compliance Statement B: [email or web address] Performed By: [employer] [address] [place] [address] Bridge Ironworker: Lynn Layne MD EKG 12 Leadon 92-08-8789Jjwsdw Rfpy30TRMYqwrhOhioHealth [facility], KYP Bkbw16yjoczznIgium Health- [place], KYP-R Axjmsssw037 [facility] [place], KYQ-T Meuluxvz055 [facility], KYQRS Zlmvnzqd08 [facility] [place], KYQTc Calculation (Tamelatt)500 [facility], KYR Gsrx95ddotjdoRpvdy Health- [place], KYT Jyju60ulzwsqsXkbid Health- [place], KYVentricular Vmib75ZOEPwnhy Health- [place], KYNormal sinus rhythm with sinus arrhythmia Prolonged QT Abnormal ECG No previous ECGs availableMary Rutan Hospital, Silver Carrillo Incoming Ekg Results From [facility] - 04/23/2020 12:32 PM EST Normal sinus rhythm with sinus arrhythmia Prolonged QT Abnormal ECG No previous ECGs availableMary Rutan Hospital, IAAPTDignity Health St. [facility] [id number] Coag (Bld) [Time]22.2 mCwqwwq76.5-30.5T[facility] City HospitalComment on above: Result Comment: IV Heparin Therapy Range: 48.6-77.8Performed By: #### CBC, PT, PTT, BMP #### [employer] [address] [place] [address] Director Of Child Welfare Services: Casey Marques MD #### ANICOT #### [employer] [address] [place] [address] Director Of Child Welfare Services: Adolph Diaz MDaPTGino Coag (Bld) [Time]22.2 [facility], [place] Comment on above: IV Heparin Therapy Range: 48.6-77.8 Basic Metabolic Panelon 88-67-8547Beiwk gap [Moles/Vol]12 mmol/L9 - 17 mmol/L [facility], KYBun/Cre RatioNOT REPORTEDMary [facility] Hospital, KYCalcium [Mass/Vol]9.2 mg/dL8.6 - 10.4 mg/dLMary [facility]an Hospital, KYChloride [Moles/Vol]104 mmol/L98 - 107 mmol/LMOhioHealth, KYCO2 [Moles/Vol]23 mmol/L20 - 31 mmol/L [facility], KYCreatinine [Mass/Vol]0.69 mg/dL0.5 - 0.9 mg/dLMary [facility] Hospital, KYGFR >60>60 mL/minMary Rutan Hospital, KYGFR Non->60>60 mL/minMary Rutan Hospital, KYGFR/1.73 sq M predicted among non- blacks MDRD (S/P/Bld) [Vol rate/Area]NOT REPORTEDMary [facility], KYGFR/1.73 sq M predicted among non-blacks MDRD (S/P/Bld) [Vol rate/Area][facility], [place] Comment on above:Average GFR for 20-29 years old: 116 mL/min/1.73sq m Chronic Kidney Disease: <60 mL/min/1.73sq m Kidney failure: <15 mL/min/1.73sq m eGFR calculated using average adult body mass. Additional eGFR calculator available at: http://www.[employer]/multiple_crcl_2011.htm Glucose [Mass/Vol]123 mg/rEGedo81 - 99 mg/dLMary [facility]an Hospital, KYInterpretation and review of laboratory resultsAbnormalMary [facility]an Hospital, KYPotassium [Moles/Vol]4.1 mmol/L3.7 - 5.3 mmol/LMOhioHealth, KYSodium [Moles/Vol]139 mmol/L135 - 144 mmol/LMOhioHealth, KYUrea nitrogen [Mass/Vol]7 mg/dL6 - 20 mg/dLMary [facility]an [facility], KYBasic Metabolic Profon 04-22-2020(cont.)NormalTwin City HospitalComment on above:Result Comment: Average GFR for 20-29 years old: 116 mL/min/1.73sq m Chronic Kidney Disease: <60 mL/min/1.73sq m Kidney failure: <15 mL/min/1.73sq m eGFR calculated using average adult body mass. Additional eGFR calculator available at: http://www.[employer]/multiple_crcl_2012.htmPerformed By: #### CBC, PT, PTT, BMP #### [employer] [address] [place] [address] Director Of Child Welfare Services: Casey Marques MD #### ANICOT #### [facility] [address] [place] [address] Director Of Child Welfare Services: Dontae Ward gap [Moles/Vol]12 mmol/LNormal9-17T[facility] City HospitalComment on above:Performed By: #### CBC, PT, PTT, BMP #### [address] [address] Director Of Child Welfare Services: Casey Marques MD #### ANICOT #### [address] [address] Director Of Child Welfare Services: XIN Wardalcium [Mass/Vol]9.2 mg/dLNormal8.6-10.4T[facility] City HospitalComment on above:Performed By: #### CBC, PT, PTT, BMP #### [address] [address] Director Of Child Welfare Services: Casey Marques MD #### ANICOT #### [facility] [address] [place] [address] Director Of Child Welfare Services: XIN Wardhloride [Moles/Vol]104 mmol/IQuxbeu10-897GbfqrTwin City HospitalComment on above:Performed By: #### CBC, PT, PTT, BMP #### [employer] [address] [place] [address] Director Of Child Welfare Services: Casey Marques MD #### ANICOT #### [facility] [address] [place] [address] Director Of Child Welfare Services: XIN WardO2 [Moles/Vol]23 mmol/ODcrwws51-29YppmbTwin City HospitalComment on above:Performed By: #### CBC, PT, PTT, BMP #### [facility] [address] [place] [address] Director Of Child Welfare Services: Casey Marques MD #### ANICOT #### [facility] [address] [place] [address] Director Of Child Welfare Services: XIN Wardreatinine [Mass/Vol]0.69 mg/dLNormal0.50-0.90 [facility] HospitalComment on above:Performed By: #### CBC, PT, PTT, BMP #### [facility] [address] [place] [address] Director Of Child Welfare Services: Casey Marques MD #### ANICOT #### [facility] [address] [place], [place] [address] Director Of Child Welfare Services: Adolph Diaz MDGFR, Amer>60Normal>60T[facility] City HospitalComment on above:Performed By: #### CBC, PT, PTT, BMP #### [facility] [address] [place] [address] Director Of Child Welfare Services: Casey Marques MD #### ANICOT #### [facility] [address] [place] [address] Director Of Child Welfare Services: Adolph Diaz MDGFR,non Amer>60Normal>60T[facility] City HospitalComment on above:Performed By: #### CBC, PT, PTT, BMP #### [facility] [address] [place] [address] Director Of Child Welfare Services: Casey Marques MD #### ANICOT #### [facility] [address] [place] [address] Director Of Child Welfare Services: Adolph Diaz MDGlucose [Mass/Vol]123 mg/hRDgja15-16PbihxRegional Medical Center of San JoseComment on above:Performed By: #### CBC, PT, PTT, BMP #### [address] [address] Director Of Child Welfare Services: Casey Marques MD #### ANICOT #### [facility] [address] [place] [address] Director Of Child Welfare Services: VERONICA Wardotassium [Moles/Vol]4.1 mmol/LNormal3.7-5.3MRegional Medical Center of San JoseComment on above:Performed By: #### CBC, PT, PTT, BMP #### [address] [address] Director Of Child Welfare Services: Casey Marques MD #### ANICOT #### [address] [address] Director Of Child Welfare Services: JACINTO Wardodium [Moles/Vol]139 mmol/PGooelh654-213IvdliTwin City HospitalComment on above:Performed By: #### CBC, PT, PTT, BMP #### [address] [address] Director Of Child Welfare Services: Casey Marques MD #### ANICOT #### [facility] [address] [place] [address] Director Of Child Welfare Services: Adolph Diaz MDUrea nitrogen [Mass/Vol]7 mg/dLNormal6-20T[facility] City HospitalComment on above:Performed By: #### CBC, PT, PTT, BMP #### [address] [address] Director Of Child Welfare Services: Casey Marques MD #### ANICOT #### [address] [address] Director Of Child Welfare Services: Adolph Diaz MDBUTanja/CRE RatioNOT REPORTEDNoatrium health wake forest baptist20Twin City HospitalComment on above:Performed By: #### CBC, PT, PTT, BMP #### [facility] [address] [place] [address] Director Of Child Welfare Services: Casey Marques MD #### ANICOT #### [facility] [address] [place] [address] Director Of Child Welfare Services: JACINTO Wardtaging:NOT REPORTEDNoalTwin City HospitalComment on above:Performed By: #### CBC, PT, PTT, BMP #### [facility] [address] [place] [address] Director Of Child Welfare Services: Casey Marques MD #### ANICOT #### [facility] [address] [place] [address] Director Of Child Welfare Services: XIN Wardmanisha 66-12-4920Gmwkwqniios distribution width (RBC) [Ratio]14.6 %High11.8-14.4T[facility] City HospitalComment on above:Performed By: #### CBC, PT, PTT, BMP #### [facility] [address] [address] Director Of Child Welfare Services: Casey Marques MD #### ANICOT #### [facility] [address] [place] [address] Director Of Child Welfare Services: Adolph Diaz MDHematocrit (Bld) [Volume fraction]40.8 %Normal 36.3-47.1Mer[facility] Suburban Medical CenterComment on above:Performed By: #### CBC, PT, PTT, BMP #### [facility] [address] [address] Director Of Child Welfare Services: Casey Marques MD #### ANICOT #### [facility] [address] [place], [place] [id number] Director Of Child Welfare Services: Adolph Diaz MDHemoglobin (Bld) [Mass/Vol]12.8 g/dLNormal 11.9-15.1MRegional Medical Center of San JoseComment on above:Performed By: #### CBC, PT, PTT, BMP #### [address] [id number] Director Of Child Welfare Services: Casey Marques MD #### ANICOT #### [facility] [address] [place], [place] [id number] Director Of Child Welfare Services: YESSICA WardCH (RBC) [Entitic mass]26.5 vtTkblgh36.2-33.5 [facility] City HospitalComment on above:Performed By: #### CBC, PT, PTT, BMP #### [address] [address] Director Of Child Welfare Services: Casey Marques MD #### ANICOT #### [facility] [address] [place], [place] [id number] Director Of Child Welfare Services: NIMCO WardC (RBC) [Mass/Vol]31.4 g/zRSvzcog63.4-34.8 [facility] HospitalComment on above:Performed By: #### CBC, PT, PTT, BMP #### [address] [id number] Director Of Child Welfare Services: Casey Marques MD #### ANICOT #### [facility] [address] [place], [place] [id number] Director Of Child Welfare Services: YESSICA WardCV (RBC) [Entitic vol]84.5 wPSstlem70.6-102.9 [facility] HospitalComment on above:Performed By: #### CBC, PT, PTT, BMP #### [address] [address] Director Of Child Welfare Services: Casey Marques MD #### ANICOT #### [facility] [address] [place] [address] Director Of Child Welfare Services: Adolph Diaz MDNRBC Automated0.0 per 100 WBCNormal0.0[facility] HospitalComment on above:Performed By: #### CBC, PT, PTT, BMP #### [facility] [address] [place] [address] Director Of Child Welfare Services: Casey Marques MD #### ANICOT #### [facility] [address] [place] [address] Director Of Child Welfare Services: Stephan Ward mean volume (Bld) [Entitic vol]8.7 fL Normal8.1-13.5[facility] HospitalComment on above:Performed By: #### CBC, PT, PTT, BMP #### [place] [address] Director Of Child Welfare Services: Casey Marques MD #### ANICOT #### [facility] [address] [place] [address] Director Of Child Welfare Services: Yajaira Ward (Bld) [#/Vol]298 10*3/wHQufiaj855-583 [facility] HospitalComment on above:Performed By: #### CBC, PT, PTT, BMP #### [place] [address] Director Of Child Welfare Services: Casey Marques MD #### ANICOT #### [facility] [address] [place] [address] Director Of Child Welfare Services: RAYMON Ward (Bld) [#/Vol]4.83 10*6/uLNormal3.95-5.11[facility] HospitalComment on above:Performed By: #### CBC, PT, PTT, BMP #### [place] [id number] Director Of Child Welfare Services: Casey Marques MD #### ANICOT #### [facility] [address] [place] [address] Director Of Child Welfare Services: Adolph Diaz MDWBC (Bld) [#/Vol]10.8 10*3/uLNormal3.5-11.3[facility] CenterComment on above:Performed By: #### CBC, PT, PTT, BMP #### [facility] [address] [place], [place] [id number] Director Of Child Welfare Services: Casey Marques MD #### ANICOT #### [facility] [address] [place] [address] Director Of Child Welfare Services: Adolph Diaz MDErythrocyte distribution width (RBC) [Ratio]14.6 %High11.8 - 14.4 %[facility], IAHematocrit (Bld) [Volume fraction]40.8 % 36.3 - 47.1 %[facility], IAHemoglobin (Bld) [Mass/Vol]12.8 g/dL11.9 - 15.1 g/dLMary Rutan Hospital, IAInterpretation and review of laboratory resultsAbnormal [facility], [facility] (RBC) [Entitic mass]26.5 pg25.2 - 33.5 pgMary Rutan Hospital, [facility] (RBC) [Mass/Vol]31.4 g/dL28.4 - 34.8 g/dLMary [facility]an Hospital, [facility] (RBC) [Entitic vol]84.5 fL82.6 - 102.9 fLOhiohealth [facility]ville [facility]- [place], IAPlatelet mean volume (Bld) [Entitic vol]8.7 fL8.1 - 13.5 fLOhiohealth Nelsonville Health Center- [place], KYPlatelets (Bld) [#/Vol]298 10*3/uLOhiohealth Nelsonville Health Center- [place], KYRBC (Bld) [#/Vol]4.83 10*6/uL3.95 - 5.11 m/[facility]- [place], KYWBC (Bld) [#/Vol]10.8 10*3/uLMary Rutan HospitalNORMAWBC (Bld) [#/Vol]0.0 10*3/uL0.0 per 100 WBCMary Rutan HospitalHectoron [id number] acute cardiopulmonary findingsMary Rutan HospitalNORMAEXAMINATION: TWO XRAY VIEWS OF THE CHEST 04/22/2020 2:46 pm COMPARISON: Baseline examination HISTORY:ORDERING SYSTEM PROVIDED HISTORY: preop gastric bypass [employer] TECHNOLOGIST PROVIDED HISTORY: preop gastric bypass Ben [employer] Y Reason for Exam: preop gastric bypass FINDINGS: Normal cardiopericardialsilhouette There are no significant pleural, parenchymal, mediastinal or osseous findingsMary Rutan HospitalNORMASilver [place] Incoming Radiant Results From [employer] - 04/22/2020 3:28 PM EST EXAMINATION: [...] osseous findings IMPRESSION: No acute cardiopulmonary findings [facility] HospitalEricka [id number] Coag (PPP) [Relative time]0.9 {INR}Normal [facility] HospitalComment on above:Result Comment: Therapeutic Range: Moderate Anticoagulant Intensity: INR = 2.0-3.0 High Anticoagulant Intensity: INR = 2.5-3.5Performed By: #### CBC, PT, PTT, BMP #### [employer] [address] [place], [place] [id number] Director Of Child Welfare Services: Casey Marques MD #### ANICOT #### [facility] [address] [place] [address] Director Of Child Welfare Services: CULLEN Ward Coag (PPP) [Time]9.3 sNormal9.0-12.0[facility] HospitalComment on above:Performed By: #### CBC, PT, PTT, BMP #### [employer] [address] [place] [address] Director Of Child Welfare Services: Casey Marques MD #### ANALI #### [facility] [address] [place] [address] Director Of Child Welfare Services: VERONICA Wardrotime-INRon [phone] Coag (PPP) [Relative time]0.9 {INR}[facility], NORMAComformerly oakwood heritage hospital on above: Therapeutic Range: Moderate Anticoagulant Intensity: INR = 2.0-3.0 High Anticoagulant Intensity: INR = 2.5-3.5 PT Coag (PPP) [Time]9.3 sMmercy [facility] [place], KYXR CHEST (2 VW)on 90-42-1029AW CHEST (2 VW)EXAMINATION: TWO XRAY VIEWS OF [...] Signed by: Roxanne Avitia MD 04/22/20 Final resultNoDayton Children's Hospital Vital Signs Date TimeVital SignValuePerforming TzldoaytxAuekymmx66-02-9692 13:26-0500Body mass index (BMI) [Ratio]40.03 kg/g4Pumdn Juan DO Work Phone: [facility] HospitalAifugxhayc11-65-2996 13:26-0500Body fiuqof182.18 kgCorey Juan DO Work Phone: [facility] HospitalCujlbdtjsb65-76-2348 13:26-0500Diastolic blood srjqamqi25 mm[Hg]Les Juan DO Work Phone: [facility] HospitalCbdkwbegvs07-76-4372 13:26-0500Systolic blood kxqtgyse584 mm[Hg]Les Juan DO Work Phone: [facility] HospitalIdefbcxynm74-77-7256 14:43-0400Body mass index (BMI) [Ratio]39.77 kg/m2Amy [place] PA Work Phone: [phone]-[facility] HospitalYfsfjyqhms84-58-4243 14:43-0400Body nxeihi657.33 kgAmy Memphis PA Work Phone: [facility] HospitalOlzcujkqqk40-90-2146 14:43-0400Diastolic blood igabgehf42 mm[Hg]Jojo Ames PA Work Phone: [phone]-[facility] HospitalJyktcipnsh08-27-2599 14:43-0400Systolic blood esybibdu684 mm[Hg]Jojo Pelaezey PA Work Phone: [phone] [place], [place] [address]Sghwqzfknp93-26-4901 11:34-0400Body mass index (BMI) [Ratio]38.49 kg/z3RojgjsacMima Duenas IMPORT SPECIALIST Work Phone: 1(456)233-[facility]Re[facility] HospitalGgkktpegjt22-32-1438 11:34-0400Body iqmazc048.19 kgMima Duenas IMPORT SPECIALIST Work Phone: [phone] [place], [place] [address]Wnmimmauod55-25-5340 11:34-0400Diastolic blood uofbelyr85 mm[Hg]Mima Duenas IMPORT SPECIALIST Work Phone: 1([phone])871-[address] [place], [place] [address]Onqxahitax08-11-6921 11:34-0400Systolic blood ogklcaol391 mm[Hg]Mima Duenas IMPORT SPECIALIST Work Phone: [phone] [place], [place] [address]Dwqrmlerpd89-07-3946 10:01-0400Body mass index (BMI) [Ratio]36.79 kg/m2Amy Kwaku PA Work Phone: [phone] [place], [place] [address]Hbduwmrywm90-17-6906 10:01-0400Body exthmb594.66 kgAmy Kwaku PA Work Phone: [phone] [place], [place] [address]Urrkuyunfz76-67-9363 10:01-0400Diastolic blood xlbnjsry09 mm[Hg]Jojo Ames PA Work Phone: 1([phone])354-[address] [place], [place] [address]Omhiriloxs21-33-7613 10:01-0400Systolic blood rbwotlzs907 mm[Hg]Jojo Ames PA Work Phone: 1(510)605-[address] [place], [place] [address]Mkubfthxpq71-34-5225 12:46-0400Body .3 cmEnrike Lindquist MD Work Phone: [phone] [place], [place] 4832208-20-2025 12:46-0400Body mass index (BMI) [Ratio]35.84 kg/u8LejttrozEnrike Lindquist MD Work Phone: [phone] [place], [place] 4832208-20-2025 12:46-0400Body .57 kgEnrike Lindquist MD Work Phone: [phone] [place], [place] 4832208-20-2025 12:46-0400Diastolic blood bqywzalg98 mm[Hg]Enrike Lindquist MD Work Phone: [phone])[address] [place], [place] 4832208-20-2025 12:46-0400Heart rate 73 /minEnrike Lindquist MD Work Phone: [phone] [place], [place] 4832208-20-2025 12:46-0400Systolic blood cikbtner88 mm[Hg]Enrike Lindquist MD Work Phone: [phone])[address] [place], [place] 4832208-17-2025 23:35-0400Body .34 cmAmanda Shethrbacher RISK MANAGEMENT INTERN Work Phone: [facility]08-17-2025 23:35-0400 Body wvlxaiqjaej73.2 [degF]Amanda Ford RISK MANAGEMENT INTERN Work Phone: [facility]08-17-2025 23:35-0400 Body mijpsm443.66 kgAmanda Shethrbacher RISK MANAGEMENT INTERN Work Phone: [facility]08-17-2025 23:35-0400 Diastolic blood ynwwukfr89 mm[Hg]Amanda Ford RISK MANAGEMENT INTERN Work Phone: [facility]08-17-2025 23:35-0400 Heart rate75 /minArtemionnedmundo Shethrbacher RISK MANAGEMENT INTERN Work Phone: [facility]08-17-2025 23:35-0400 Respiratory rate16 /minAmanda Shethrbacher RISK MANAGEMENT INTERN Work Phone: [facility]08-17-2025 23:35-0400 SaO2% (BldA) [Mass fraction]97 %Amanda Ford RISK MANAGEMENT INTERN Work Phone: [facility]08-17-2025 23:35-0400 Systolic blood uxcwtgym662 mm[Hg]Amanda Hahnnikkie RISK MANAGEMENT INTERN Work Phone: [facility]08-05-2025 10:37-0400 Body wwaigi386.1216 kgAmanda Ford RISK MANAGEMENT INTERN Work Phone: [facility]08-05-2025 09:10-0400 Body mass index (BMI) [Ratio]35.7 kg/x3Bxlld Juan DO Work Phone: [facility] HospitalJyiganwtqa28-44-8359 09:10-0400Body ceicdg951.12 kgCorey Juan DO Work Phone: [facility] HospitalJirlqicecq45-25-9974 09:10-0400Diastolic blood wafuzhno38 mm[Hg]Les Juan DO Work Phone: [facility] HospitalPlioggituq82-52-7427 09:10-0400Systolic blood mm[Hg]Les Juan DO Work Phone: [facility] HospitalXvnablwdnj67-40-5809 11:28-0400Body mass index (BMI) [Ratio]31.24 kg/f1Turyh Juan DO Work Phone: [facility] HospitalYoidsbypgg82-43-5287 11:28-0400Body vzwuvj712.61 kgCorey Juan DO Work Phone: [facility] HospitalLjpjlujyyf97-25-9981 11:28-0400Diastolic blood vkczyhhf46 mm[Hg]Les Juan DO Work Phone: [facility] HospitalEyzyihenqg76-78-1881 11:28-0400Systolic blood mjkstesa865 mm[Hg]Les Juan DO Work Phone: [facility] HospitalNeltispcrl86-01-2436 13:34-0400Diastolic blood mm[Hg]Amanda Logan RISK MANAGEMENT INTERN Work Phone: [facility]07-03-2025 13:34-0400 Heart rate60 /Juan Pablo Logan RISK MANAGEMENT INTERN Work Phone: [phone]07-03-2025 13:34-0400 Respiratory rate18 /Jhonnyaicha Ford RISK MANAGEMENT INTERN Work Phone: [phone]07-03-2025 13:34-0400 SaO2% (BldA) [Mass fraction]99 %Amanda Logan RISK MANAGEMENT INTERN Work Phone: [phone]07-03-2025 13:34-0400 Systolic blood vkqshyvl655 mm[Hg]Amanda Shethbilly RISK MANAGEMENT INTERN Work Phone: 1(537)483-[address] [place], [place] 16[address]107-03-2025 10:38-0400 Body kdusbu123.34 cmAmanda Shethbilly RISK MANAGEMENT INTERN Work Phone: [phone]-[facility]07-03-2025 10:38-0400 Body cpgaptodpsg80.1 [degF]Amanda Shethbilly RISK MANAGEMENT INTERN Work Phone: [phone]07-03-2025 10:38-0400 Body yniock890.85 kgAmanda Shethbilly RISK MANAGEMENT INTERN Work Phone: [phone]06-05-2025 15:06-0400 Body mass index (BMI) [Ratio]31.24 kg/m2[facility]06-05-2025 15:06-0400Body uhvmeu986.61 kgFre[facility]06-05-2025 15:06-0400 Diastolic blood mm[Hg][facility]06-05-2025 15:06-0400 Systolic blood bxoapwdc002 mm[Hg][facility]05-07-2025 10:04-0400 Body womfjp830.3 Kam Sinclair MD Work Phone: [phone]05-07-2025 10:04-0400Body mass index (BMI) [Ratio]29.99 kg/z0CievlDarleen Sinclair MD Work Phone: [phone] [place], [place] 0211305-07-2025 10:04-0400Body yqbvje81.52 kgDarleen Sinclair MD Work Phone: [phone] [place], [place] 02[address]305-07-2025 10:04-0400Diastolic blood mm[Hg]Darleen Sinclair MD Work Phone: [phone] [place], [place] 02[address]305-07-2025 10:04-0400Heart rate67 /min Darleen Sinclair MD Work Phone: [phone] [place], [place] 02[address]305-07-2025 10:04-0400Respiratory rate16 /minDarleen Sinclair MD Work Phone: [phone] [place], [place] 02[address]305-07-2025 10:04-7332WxK1% (BldA) [Mass fraction]99 %Darleen Sinclair MD Work Phone: [phone] [place], [place] 02[address]305-07-2025 10:04-0400Systolic blood bqukkivw946 mm[Hg]Darleen Sinclair MD Work Phone: [phone] [place], [place] 0211301-09-2025 08:32-0500Body .34 cmGal[facility]01-09-2025 08:32-0500Body mass index (BMI) [Ratio]30.4 kg/s6NlnghvcokGalion Community Hospital01-09-2025 08:32-0500Body vkvnkvoemcw14.3 [degF][facility]01-09-2025 08:32-0500Body ugtgsh29.99 kgGalion [facility] Hospital01-09-2025 08:32-0500Diastolic blood zzwyznxb40 mm[Hg][facility]01-09-2025 08:32-0500 Heart rate73 /minGalion Community Hospital01-09-2025 08:32-6396RuO6% (BldA) [Mass fraction]98 %[facility]01-09-2025 08:32-0500 Systolic blood rwmochgc772 mm[Hg][facility]11-12-2024 14:03-0500Body dclsuz561.3 cmIgnacio Guy MD Work Phone: [phone] HospitalZiwfmd25-16-3450 14:03-0500Body mass index (BMI) [Ratio]30.23 kg/v1ZpqmaeIgnacio Guy MD Work Phone: [facility] Ocmoze55-34-5272 14:03-0500Body elttka74.3 kgIgnacio Guy MD Work Phone: [facility]and Qbhtsv83-90-8249 15:12-0500Body mass index (BMI) [Ratio]31.71 kg/a0Yynqu Juan DO Work Phone: [facility] HospitalEroaqafktb46-55-4358 15:12-0500Body yyajzz998.25 kgCorey Juan DO Work Phone: [facility] HospitalCaiipgplir54-98-6000 15:12-0500Diastolic blood obyvtmul55 mm[Hg]Les Juan DO Work Phone: [facility] HospitalWxdaoghkwn88-23-5674 15:12-0500Systolic blood nutrvuhr477 mm[Hg]Les Juan DO Work Phone: [facility] HospitalElisbzrbpv39-68-2435 11:46-0400Diastolic blood hglresud54 mm[Hg]MELY Ford Work Phone: [facility]08-21-2024 11:46-0400 Heart rate76 /minAPRTanja Ford Work Phone: [facility]08-21-2024 11:46-0400 Respiratory rate16 /minAPRTanja Ford Work Phone: [facility]08-21-2024 11:46-0400 SaO2% (BldA) [Mass fraction]99 %MELY Ford Work Phone: [facility]08-21-2024 11:46-0400 Systolic blood lzobxpug395 mm[Hg]MELY Ford Work Phone: [phone]08-21-2024 10:20-0400 Body yxaslwmhmvo73 [degF]MELY Ford Work Phone: [phone]08-21-2024 09:55-0400 Inhaled oxygen flow rate3 L/minMELY Ford Work Phone: [phone]08-21-2024 06:29-0400 Body uytpxg290.34 Justo Hahnr Work Phone: [phone]08-21-2024 06:29-0400 Body gqxlne64.25 kgMELY Hahnr Work Phone: [phone]07-16-2024 11:56-0400 Body xnxcta152.34 Justo Hahnr Work Phone: [phone]07-16-2024 11:56-0400 Body mass index (BMI) [Ratio]28.8 kg/m2MELY Hahnr Work Phone: [phone]07-16-2024 11:56-0400 Body fwawjw78.89 kgMELY Hahnr Work Phone: 1([phone])070-[address] [place], [place] 16[address]102-21-2024 14:56-0500 Body ojjztu041.34 cmGalion [facility] Hospital02-21-2024 14:56-0500Body mass index (BMI) [Ratio]29.4 kg/s6GskaenjpnGalion Community Hospital02-21-2024 14:56-0500Body stxgox76.7 kgGalion Community Hospital02-21-2024 14:56-0500Diastolic blood omrjnxrs36 mm[Hg][facility] 06-08-2023 14:56-0500Heart rate51 /minGalion Community Hospital 06-08-2023 14:56-5309YrY8% (BldA) [Mass fraction]98 %[facility]02-21-2024 14:56-0500Systolic blood jhducorq724 mm[Hg][facility]01-30-2024 14:30-0500Body eacrcc528.34 cmGuillepamela Millerley Other [facility]01-30-2024 14:30-0500 Body mass index (BMI) [Ratio]27.47 kg/d9QtroaRomeo Santana Other [facility] Other 01-30-2024 14:30-0500Body posoxf67.36 kgGuillepamela Esther Other [employer] Other 01-30-2024 14:30-0500Body azexvn07.35 kgGalion Community Hospital10-23-2023 14:30-0400Body bznkec926.34 cmPetr Lay Other [facility] Other 10-23-2023 14:30-0400Body mass index (BMI) [Ratio] 27.61 kg/t8AxedvvbPetr Lay Other [facility] Other 10-23-2023 14:30-0400Body zxbnktitknn02.1 [degF] Petr Lay Other [facility] Other 10-23-2023 14:30-0400Body lihetc51.81 kgPetr Lay Other [facility] Other 10-23-2023 14:30-0400Diastolic blood zysnylqn63 mm[Hg] Petr Lay Other [facility] Other 10-23-2023 14:30-3389EtZ4% (BldA) [Mass fraction]99 % Petr Lay Other [facility] Other 10-23-2023 14:30-0400Systolic blood jyacuabh698 mm[Hg] Petr Lay Other [facility] Other 09-11-2023 11:30-0400Body .34 cmMajose guadalupe Lay Other [facility] Other 09-11-2023 11:30-0400Body mass index (BMI) [Ratio] 28.03 kg/q6WicajsrPetr Lay Other [facility] Other 09-11-2023 11:30-0400Body pgtucc07.17 kgMajose guadalupe Lay Other [facility] Other 09-11-2023 11:30-0400Diastolic blood mm[Hg] Petr Lay Other [facility] Other 09-11-2023 11:30-0400Respiratory rate18 /minMattnany Lay Other [facility] Other 09-11-2023 11:30-1762HaV4% (BldA) [Mass fraction]99 % Petr Lay Other [facility] Other 09-11-2023 11:30-0400Systolic blood fubslmjj960 mm[Hg] Petr Lay Other [facility] Other 06-26-2023 13:30-0400Body twkpyd247.34 cmMajose guadalupe Lay Other [facility] Other 06-26-2023 13:30-0400Body mass index (BMI) [Ratio] 28.78 kg/q2RwztfruPetr Lay Other [facility] Other 06-26-2023 13:30-0400Body oagxhe21.62 kgPetr Lay Other [facility] Other 06-26-2023 13:30-0400Diastolic blood ikqhqies75 mm[Hg] Petr Lay Other [facility] Other 06-26-2023 13:30-0400Respiratory rate18 /minPetr Lay Other [facility] Other 06-26-2023 13:30-9575RgP0% (BldA) [Mass fraction]98 % Petr Lay Other [facility] Other 06-26-2023 13:30-0400Systolic blood mm[Hg] Petr Lay Other [facility] Other 06-15-2023 08:00-0400Body prmmur928.34 cmJephamifer Merylrbacher Other [facility] Other 06-15-2023 08:00-0400Body mass index (BMI) [Ratio] 28.03 kg/a4Hkcoflpa Rohrbacher Other [facility] Other 06-15-2023 08:00-0400Body rcjwci93.17 kgJephamifer Rohrbacher Other [facility] Other 06-15-2023 08:00-0400Diastolic blood cijdrhjw46 mm[Hg] Amanda Rosarioacher Other [employer] Other 06-15-2023 08:00-8646IwC3% (BldA) [Mass fraction]95 % Amanda Jovanir Other [employer] Other 06-15-2023 08:00-0400Systolic blood mm[Hg] Amanda Jovanir Other [employer] Other 05-10-2023 15:30-0400Body dtcamy348.34 cmAmanda Merylrbacher Other [employer] Other 05-10-2023 15:30-0400Body mass index (BMI) [Ratio] 29.15 kg/p9Tikqonzm Merylrbacher Other [employer] Other 05-10-2023 15:30-0400Body .8 kgAmanda Merylrbacher Other [facility] Other 05-10-2023 15:30-0400Diastolic blood mm[Hg] Amanda Rosarioacher Other [employer] Other 05-10-2023 15:30-0400Systolic blood tfpmihjd587 mm[Hg] Amanda Merylrbacher Other [facility] Other 05-05-2023 11:00-0400Body .34 cmAmanda Shethrbacher Other [facility] Other 05-05-2023 11:00-0400Body mass index (BMI) [Ratio] 28.73 kg/r1NlotstnwAmanda Ford Other [facility] Other 05-05-2023 11:00-0400Body ovklyt84.44 kgAmanda Ford Other [facility] Other 05-05-2023 11:00-0400Diastolic blood evngoesd92 mm[Hg] Amanda Shethbilly Other [facility] Other 05-05-2023 11:00-3341NqT9% (BldA) [Mass fraction]100 % Amanda Logan Other [facility] Other 05-05-2023 11:00-0400Systolic blood rrmjbsri156 mm[Hg] Amanda Logan Other [employer] Other 02-24-2023 16:43-0500Body vxscpgecwmd88.1 [degF]MD Mariam Appiah Work Phone: [facility]02-24-2023 16:43-0500 Diastolic blood xmrhqfva50 mm[Hg]MD Mariam Appiah Work Phone: [facility]02-24-2023 16:43-0500 Heart rate60 /minMD Mariam Appiah Work Phone: [facility]02-24-2023 16:43-0500 Respiratory rate16 /minMD Mariam Appiah Work Phone: [facility]02-24-2023 16:43-0500 SaO2% (BldA) [Mass fraction]100 %MD Mariam Appiah Work Phone: 1(489)[address] [place], [place] 6241402-24-2023 16:43-0500 Systolic blood cugjbifj928 mm[Hg]MD Mariam Appiah Work Phone: 1(927)[address] [place], [place] 6241402-24-2023 09:40-0500 Body cwlnik345.34 cmMD Mariam Appiah Work Phone: 1(929)[address] [place], [place] 6241402-24-2023 05:42-0500 Body kgMD Mariam Appiah Work Phone: 1(619)[address] [place], [place] 6241402-23-2023 17:55-0500 Body fofzpnjsmyi39.1 [degF]MD Mariam Appiah Work Phone: 1(427)[address] [place], [place] 6241402-23-2023 17:55-0500 Diastolic blood hodtzaro76 mm[Hg]MD Mariam Appiah Work Phone: 1(428)[address] [place], [place] 6241402-23-2023 17:55-0500 Heart rate62 /minMD Mariam Appiah Work Phone: 1(488)[address] [place], [place] 6241402-23-2023 17:55-0500 Respiratory rate18 /minMD Mariam Appaih Work Phone: [phone] [place], [place] 6241402-23-2023 17:55-0500 SaO2% (BldA) [Mass fraction]100 %MD Mariam Appiah Work Phone: 1(214)[address] [place], [place] 6241402-23-2023 17:55-0500 Systolic blood kdibexud389 mm[Hg]MD Mariam Appiah Work Phone: 1(864)[address] [place], [place] 6241402-23-2023 14:22-0500 Body gypric545.34 cmMD Mariam Appiah Work Phone: [phone] [place], [place] 6241402-23-2023 14:22-0500 Body fylowp53.7 kgMD Mariam Appiah Work Phone: 1([phone] [place], [place] 6241401-04-2023 15:00-0500 Body sepafz397.34 cmAmanda Ponceacher Other [employer] Other 01-04-2023 15:00-0500Body mass index (BMI) [Ratio] 27.81 kg/k2LshtklszAmanda Shethbilly Other [facility] Other 01-04-2023 15:00-0500Body puvksqhmzvx55.2 [degF] Amanda Logan Other [facility] Other 01-04-2023 15:00-0500Body ewahfo95.45 kgAmanda Shethsarahachenikkie Other [facility] Other 01-04-2023 15:00-0500Diastolic blood yjpjcmij49 mm[Hg] Amanda Logan Other [facility] Other 01-04-2023 15:00-0500Respiratory rate18 /minAmanda Shethbilly Other [facility] Other 01-04-2023 15:00-0180BlD4% (BldA) [Mass fraction]99 % Amandarufino Ford Other [facility] Other 01-04-2023 15:00-0500Systolic blood fhwgiuhd849 mm[Hg] Amanda Ford Other [facility] Other 12-24-2022 21:41-0500Diastolic blood leotwmvi91 mm[Hg] MD Mariam Appiah Work Phone: [facility]12-24-2022 21:41-0500 Systolic blood jenptwae318 mm[Hg]MD Mariam Appiah Work Phone: 1([phone] [place], [place] 6241412-24-2022 18:14-0500 Body iurwve364.34 cmMD Mariam Appiah Work Phone: 1(854)[address] [place], [place] 6241412-24-2022 18:14-0500 Body lzodtbphfxi94.1 [degF]MD Mariam Appiah Work Phone: 1(685)[address] [place], [place] 6241412-24-2022 18:14-0500 Body ytkmhm55 kgMD Mariam Appiah Work Phone: 1(974)[address] [place], [place] 6241412-24-2022 18:14-0500 Heart aflq564 /minMD Mariam Appiah Work Phone: 1(125)[address] [place], [place] 6241412-24-2022 18:14-0500 Respiratory rate18 /minMD Mariam Appiah Work Phone: 1(497)[address] [place], [place] 6241412-24-2022 18:14-0500 SaO2% (BldA) [Mass fraction]100 %MD Mariam Appiah Work Phone: 1(287)[address] [place], [place] 6241412-22-2022 17:15-0500 Body .5 [degF]MD Mariam Appiah Work Phone: 1(726)[address] [place], [place] 6241412-22-2022 17:15-0500 Diastolic blood mm[Hg]MD Mariam Appiah Work Phone: 1(096)[address] [place], [place] 6241412-22-2022 17:15-0500 Heart rate59 /minMD Mariam Appiah Work Phone: 1(616)[address] [place], [place] 6241412-22-2022 17:15-0500 Respiratory rate18 /minMD Mariam Appiah Work Phone: 1(409)[address] [place], [place] 6241412-22-2022 17:15-0500 SaO2% (BldA) [Mass fraction]100 %MD Mariam Appiah Work Phone: 1([phone])[address] [place] [address] [id number] 17:15-0500 Systolic blood vmzlhqum884 mm[Hg]MD Mariam Appiah Work Phone: [facility]12-22-2022 14:33-0500 Body webzlc820.34 cmMD Mariam Appiah Work Phone: [facility]12-22-2022 14:33-0500 Body amieyg53.1 kgMD Mariam Appiah Work Phone: [facility]12-06-2022 15:30-0500 Body asxbek814.34 cmAmanda Shethrbacher Other [employer] Other 12-06-2022 15:30-0500Body mass index (BMI) [Ratio] 27.05 kg/r6UegocbqcAmanda Ponceacher Other [employer] Other 12-06-2022 15:30-0500Body leufmi58 kgJeaicha Merylrbacher Other [employer] Other 12-06-2022 15:30-0500Diastolic blood ukbsecyi65 mm[Hg] Amanda Ford Other [employer] Other 12-06-2022 15:30-7323InO0% (BldA) [Mass fraction]98 % Amanda Ford Other [employer] Other 12-06-2022 15:30-0500Systolic blood nukrrixw801 mm[Hg] Amanda Ford Other [employer] Other 10-24-2022 10:00-0400Body snitrs285.34 cmAmanda Shethrbacher Other [facility] Other 10-24-2022 10:00-0400Body mass index (BMI) [Ratio] 27.47 kg/p7FeqqerqkAmanda Ford Other [facility] Other 10-24-2022 10:00-0400Body jqopvi42.36 kgAmanda Shethsarahangelnikkie Other [facility] Other 10-24-2022 10:00-0400Diastolic blood mm[Hg] Amanda Logan Other [facility] Other 10-24-2022 10:00-0400Systolic blood buwvcdwk052 mm[Hg] Amanda Logan Other [place] [facility] Other 05-17-2022 14:38-0400Blood Pressure LocationSamir Thompson [facility]05-17-2022 14:38-0400 Diastolic blood hpkybwha90 mm[Hg]Samir Thompson [facility]05-17-2022 14:38-0400Heart rate61 /minSamir Thompson [facility]05-17-2022 14:38-0400 Respiratory rate18 /minSamir Thompson [facility]05-17-2022 14:38-4393LyW2% (BldA) [Mass fraction]100 %Samir Thmopson [facility]05-17-2022 14:38-0400 Systolic blood egstrfbr030 mm[Hg]Samir Thompson [facility]04-08-2022 14:39-0400Blood Pressure LocationSamir Thompson [facility]04-08-2022 14:39-0400 Diastolic blood mm[Hg]Samir Thompson [facility]04-08-2022 14:39-0400Heart rate65 /minRogean Jay [facility]04-08-2022 14:39-0400 Respiratory rate18 /minSamir [facility]04-08-2022 14:39-9259FhM3% (BldA) [Mass fraction]100 %Samir Thompson [facility]04-08-2022 14:39-0400 Systolic blood ucdkvhzm924 mm[Hg]Samir Thompson [facility]03-31-2022 11:00-0400Body .34 cmArtemioaicha Ponceachenikkie Other [employer] Other 03-31-2022 11:00-0400Body mass index (BMI) [Ratio] 29.15 kg/a2OcluljcmAmanda Hahnr Other [employer] [facility] Other 03-31-2022 11:00-0400Body viidao63.8 kgAmanda Ponceacher Other [facility] Other 03-31-2022 11:00-0400Diastolic blood udeheike26 mm[Hg] Amanda Ford Other [employer] Other 03-31-2022 11:00-3222WiF2% (BldA) [Mass fraction]98 % Amanda Ford Other [facility] Other 03-31-2022 11:00-0400Systolic blood qjyomrwe684 mm[Hg] Amanda Ford Other [employer] Other 01-21-2021 08:20-0500Body Ulikujjxsmr53.7 [degF] [facility], WO25-52-0745 08:20-0500BP Dfoijinpw39 mm[Hg] [facility], QC69-90-9635 08:20-0500BP Iwtmrfjx011 mm[Hg] [facility], XK94-23-9604 08:20-0500Pulse (Heart Rate)101 /minV[facility], QX22-31-9921 08:20-0500Pulse Dsdqoyix30 % [facility], UR08-23-5227 08:20-0500Respiratory Rate19 /min [facility], MD78-24-7626 08:51-0500BMI (Body Mass Index) 58.86 kg/f2GhpusfnVanderbilt Diabetes Center, XX95-60-7226 08:51-0500Body weight 191.42 kgV[facility], QC36-11-2784 08:51-8435Dyuesc295.3 cm [facility], SA39-96-3557 13:30-0500BMI (Body Mass Index) 61.79 kg/m2[address], FR97-10-6925 13:30-0500Body Jririvhjpos36.11 [degF][address], YR21-76-5945 13:30-0500Body ymnqnd805.94 kgStvz 2 [facility], MH08-06-3378 13:30-0500BP Ynlowecfe78 mm[Hg][address], CY81-81-8131 13:30-0500BP Nebhehpz199 mm[Hg][address] [place] [address], XW55-97-0649 13:30-5116Lyuavp259.[address] [place] [address], QS80-49-1689 13:30-0500Pulse (Heart Rate)104 /minStvz [address] [place] [address], LD04-14-0606 13:30-0500Pulse Atwhnoet56 %Stv[address] [place] [address], LM50-91-0989 13:30-0500 Respiratory Rate18 /minStvz [address] [place] [address], [place] Encounters Encounter DateEncounter TypeCare ProviderFacilityStart: 02-26-2025 End: 93-96-1933Cvxogqxyu Result EncounterCorey Juan DO Work Phone: noms External Department UnsolicitedStart: 02-26-2025 End: 55-28-3662Epungsokd Result EncounterCorey Juan DO Work Phone: noms External Department UnsolicitedStart: 02-19-2025 End: 28-94-4983Kcilti flowsheetCorey Juan DO Work Phone: noms [facility]BGYNStart: 02-19-2025 End: 82-28-6547Rbabah flowsheetCorey Juan DO Work Phone: noms [place] OBGYNStart: 02-19-2025 End: 18-74-0842Yqyokchml Result EncounterCorey Juan DO Work Phone: noms External Department UnsolicitedStart: 02-19-2025 End: 44-22-5613dpazgwkodpJIGFC FAZIONot AvailableStart: 02-19-2025 End: 99-21-9056Ymedpo outpatient visit 15 minutesCorey Juan DO Work Phone: noms [place] OBGYNComment on above:Third trimester ([facility]); 31 weeks gestation of ([facility]); TSH (thyroid-stimulating hormone deficiency); H/O gastric sleeveStart: 02-07-2025 End: 60-21-6311TxgjmmMolly Whitaker Women's Services 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 Appliance Counselor - Emily LynnComment on above:Hypothyroidism affecting in second trimester (Primary Dx); headache in second trimester; Previous gastric bypass affecting , antepartum; 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 ([facility]Start: 02-06-2025 End: 14-02-5885Eiwnwz outpatient visit 15 minutesJojo OGDEN Work Phone: NOMS [facility] OBGYNComment on above:Third trimester ([facility]); 29 weeks gestation of ([facility])Start: 02-06-2025 End: 19-47-7070zhkrhwhfoaZLX RAMEYNot AvailableStart: 02-06-2025 End: 52-97-1587Dkbebb Shakeel OGDEN Work Phone: [facility] [place] OBGYNStart: 02-06-2025 End: 36-89-3442Abapdi Shakeel OGDEN Work Phone: [facility] [place] OBGYNStart: 01-30-2025 End: 48-99-7749hokwvqjwmfOVTBSPHF TONYERMalgorzata AvailableStart: 01-16-2025 End: 50-55-1293Unzsub Eliecer Duenas IMPORT SPECIALIST Work Phone: [facility] [place] OBGYNStart: 01-16-2025 End: 45-95-1238Azlkqc Eliecer Duenas IMPORT SPECIALIST Work Phone: [facility]BGYNStart: 01-16-2025 End: 63-74-0645Xotlyn outpatient visit 15 minutesMima Duenas NP Work Phone: [facility] [place] OBGYNComment on above:26 weeks gestation of ([facility]); Second trimester ([facility]); TSH (thyroid-stimulating hormone deficiency)Start: 01-16-2025 End: 77-34-9642oautlidgeyLWRRYKTL EBERLYNot AvailableStart: 01-11-2025 End: 88-66-8552Babnuqusr Result EncounterCorey Juan DO Work Phone: noms External Department UnsolicitedStart: 01-11-2025 End: 21-75-4035Hkjnjeqlk Result EncounterCorey Juan DO Work Phone: noms External Department UnsolicitedStart: 01-09-2025 End: 69-20-3803Vfyswnabh Result EncounterAmy Kwaku OGDEN Work Phone: noms External Department UnsolicitedStart: 01-09-2025 End: 62-19-7434Jjbwxrknr Result EncounterAmy Kwaku OGDEN Work Phone: noms External Department UnsolicitedStart: 01-04-2025 End: 96-98-1685Fwhxyn Rosanna Dick RNMaternal- Medicine at White HospitalComment on above:Previous gastric bypass affecting , antepartum (Primary Dx); Hypothyroidism affecting in second trimester; 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 ([facility]); Obesity affecting in second trimester, unspecified obesity typeStart: 01-03-2025 End: 74-29-1307mxkawabaqmCK PCP NO [facility] Ambulatory PPGStart: 01-03-2025 End: 42-26-4543Iisujjnxt encounterRoslyn Griffin RNMaternal Medicine [place] HealthtonStart: 12-19-2024 End: 03-26-3701Czfbge flowsheetJojo OGDEN Work Phone: [facility] [place] OBGYNStart: 12-19-2024 End: 12-59-6813Oyxxac flowsheetJojo OGDEN Work Phone: [facility]BGYNStart: 12-19-2024 End: 73-81-4860Srbfkk outpatient visit 15 minutesJojo OGDEN Work Phone: N[facility] OBGYNComment on above:22 weeks gestation of ([facility]); Second trimester ([facility]); Thyroid disease ; H/O gastric sleeve; H/O iron deficiency anemia; Diabetes mellitus screeningStart: 12-19-2024 End: 37-61-6219tltldslvukOSN RAMEYNot AvailableStart: 12-15-2024 End: 73-78-3031Hdketippw Result EncounterCorey Juan DO Work Phone: noms External Department UnsolicitedStart: 12-15-2024 End: 81-41-2966Rtnfvyshe Result EncounterCorey Juan DO Work Phone: noms External Department UnsolicitedStart: 12-05-2024 End: 51-04-5463Lqpjjx consultation new/estab patient 80 [address] Lindquist MD Work Phone: [phone]-Oibml [facility] Comment on above:20 weeks gestation of (Primary Dx); Previous gastric bypass affecting , antepartum; Obesity affecting in second trimester, unspecified obesity type; Hypothyroidism affecting in second trimester; 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 ([facility]); headache in second trimesterStart: 12-05-2024 End: 53-57-6669Poimbi OnlyChiquita Shen RNMaternal- Medicine at White HospitalComment on above:Previous gastric bypass affecting , antepartum (Primary Dx); Hypothyroidism affecting in second trimester; Bipolar disease during in second trimester ([facility]); Obesity affecting in second trimester, unspecified obesity type; Encounter for supervision of resulting from assisted reproductive technology, antepartumStart: 12-04-2024 End: 46-63-8975llkfxgswizVYPDJ FAZIONot AvailableStart: 12-02-2024 End: 37-92-0260Ivfhvga encounter procedureRichard A Visci DO-[address] [employer] - O/P Start: 12-02-2024 End: 27-07-4963ladjizochfIxsumaxj Rohrbacher APRN Work Phone: [facility] Work Phone: Start: 12-02-2024 End: 73-22-2161Qycmifxu Result EncounterRichard A Visci DO Work Phone: noms External Department UnsolicitedStart: 12-02-2024 End: 68-83-7593Bfitvsly Result EncounterRichard A Visci DO Work Phone: NOOZ External Department UnsolicitedStart: 12-01-2024 Non-patient / Non-visit([place]) Elizabeth MCDERMOTT-[facility] Work Phone: Start: 11-30-2024 End: 74-41-7680slpwunwmvyQcehujjk Rohrbacher RISK MANAGEMENT INTERN Work Phone: [facility] Work Phone: Start: 11-30-2024 End: 32-07-9692Bsjjgrrh ReferredChris Chapman DO-[facility] Start: 49-90-9935Fbn-patient / Non-visitChris Chapman DO-[facility] Work Phone: Start: 11-20-2024 End: 03-78-4109Vynvsb flowsheetCorey Juan DO Work Phone: noms [place] OBGYNStart: 11-20-2024 End: 06-14-8503Nwaboe flowsheetCorey Juan DO Work Phone: noms [facility]BGYNStart: 11-20-2024 End: 75-42-5134Aonsznhcr Result EncounterCorey Juan DO Work Phone: noms External Department UnsolicitedStart: 11-20-2024 End: 26-03-8184Agvsozvd Result EncounterCorey Juan DO Work Phone: noms External Department UnsolicitedStart: 11-20-2024 Non-patient / Non-visitCorey Juan-[facility] Work Phone: Start: 11-20-2024 End: 63-27-4364Cbxjrgp encounter procedureCorey Juan DO Work Phone: noms HealthcareStart: 11-20-2024 End: 94-67-7419Dhmezorm preventive med est patient 18-39 yrsCorey Juan DO Work Phone: noms [place] OBGYNComment on above:Well woman exam with routine gynecological exam; Exposure to STD; Second trimester ([facility]); 18 weeks gestation of ([facility]); Need for maternal serum alpha-protein (MSAFP) screening ([facility]); Screening, , for anatomic survey ([facility]); Thyroid diseaseStart: 11-20-2024 End: 83-96-3522pwvunkdijtQENLU FAZIONot AvailableStart: 39-45-5042Edu-patient / Non-visitArtemiofito Jayla Chapman DO-[facility] Work Phone: Start: 10-26-2024 End: 94-13-1444Wfioqp OnlyNot In System Ref ProvMaternal- Medicine at [facility] Troytart: 10-22-2024 End: 87-91-8082Ztuftz outpatient visit 15 minutesCorey Juan DO Work Phone: noms BCP OBComment on above:13 weeks gestation of ([facility]); Second trimester ([facility]); Thyroid disease ; H/O gastric sleeve; H/O iron deficiency anemia; resulting from in vitro fertilization in first trimester ([facility]) Start: 10-22-2024 End: 17-87-9836ncudhmriztQJPBP FAZIONot AvailableStart: 10-18-2024 End: 35-68-4381Vxihigwrh department patient visitAmanda Ford RISK MANAGEMENT INTERN Work Phone: [phone]-Ehcuzagcg Room Work Phone: Start: 10-10-2024 End: 84-37-2800Xsneipnlt Result EncounterCorey Juan DO Work Phone: noms External Department UnsolicitedStart: 10-10-2024 End: 87-93-3385Ehnxhcvve Result EncounterCorey Juan DO Work Phone: noms External Department UnsolicitedStart: 09-26-2024 End: 67-48-8562gramnirdvpHzrfeerx MerylrbacherFacility:[facility] HospitalStart: 09-20-2024 End: 71-97-0131Prxryx outpatient visit 5 minutesNoms Bcp Ob Juan NurseNOMS BCP OBComment on above:GA: 7l2cNuewb: 09-20-2024 End: 35-27-9895mouipuluznPIYXC SABBAGHNot AvailableStart: 09-03-2024 End: 77-76-9044Nxokpog evaluation of patient and reportUs Tech 1 [facility] Rej Work Phone: Reproductive Endocrinology InfertilityComment on above:Early stage of ([facility])Start: 09-03-2024 End: 27-72-0875gqgyuszgtzCFECXTB G MICKEYFacility:[facility] Start: 08-28-2024 End: 40-19-3211Czvzjyr evaluation of patient and reportUs Tech 2 [facility] Beac Work Phone: Reproductive Endocrinology InfertilityComment on above: resulting from assisted reproductive technology in first trimester ([facility])Start: 08-28-2024 End: 75-61-9768hyphqnkgzoORRPXXI G MICKEYFacility:[facility] Start: 08-24-2024 End: 96-13-2479Xiqxoftow encounterLiliana G David RISK MANAGEMENT INTERN.METAL CUT OFF SAW TENDER Work Phone: Reproductive Endocrinology InfertilityComment on above:Patient QuestionStart: 08-23-2024 End: 33-02-6511Wnrthspor encounterLiliana G David RISK MANAGEMENT INTERN.METAL CUT OFF SAW TENDER Work Phone: Reproductive Endocrinology InfertilityComment on above:PainStart: 08-22-2024 End: 84-07-2620Ivmzcyforrest Sinclair MD Work Phone: noms ENDOCRINOLOGYStart: 08-22-2024 End: 14-65-3105Pdktbgforrest Sinclair MD Work Phone: noms ENDOCRINOLOGYStart: 08-22-2024 End: 82-00-7127Dwqnuw outpatient visit 25 minutesDarleen Sinclair MD Work Phone: NOMS SH ENDOCRINOLOGYComment on above:Abnormal thyroid function test (Primary Dx); H/O gastric bypass; 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CMS/HCC); Vitamin D deficiencyStart: 08-22-2024 End: 63-37-4769mhfsnmmynmLKIJOSp Andrade AvailableStart: 08-20-2024 End: 41-24-4589Mihxuouluznp consultation with Washington Hernandez APRN.METAL CUT OFF SAW TENDER Work Phone: Reproductive Endocrinology InfertilityStart: 08-20-2024 End: 36-44-0562rhzlxykzcbRinsaaf G Mickey RISK MANAGEMENT INTERN.METAL CUT OFF SAW TENDER Work Phone: Reproductive Endocrinology InfertilityComment on above: 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) (Primary Dx)Start: 08-18-2024 End: 48-19-9880yvufwxinelWpowvyd G Mickey RISK MANAGEMENT INTERN.METAL CUT OFF SAW TENDER Work Phone: Reproductive Endocrinology InfertilityComment on above:UltrasoundStart: 08-17-2024 End: 61-45-7961untactdxpaWnlvkeon RohrbacherFacility:[facility] HospitalStart: 08-16-2024 End: 03-09-1951Yvegzufut encounterLilimino Hernandez RISK MANAGEMENT INTERN.METAL CUT OFF SAW TENDER Work Phone: Reproductive Endocrinology InfertilityComment on above:positive for pregnancyStart: 08-15-2024 End: 20-95-7923Mehaxflhk encounterLilimino Hernandez RISK MANAGEMENT INTERN.METAL CUT OFF SAW TENDER Work Phone: Reproductive Endocrinology InfertilityComment on above:Patient QuestionStart: 08-15-2024 End: 07-15-3908zlkzhyoqmlCfiyock G MickeyFacility:[facility] HospitalStart: 08-13-2024 End: 78-68-5288fgwlqsdpqzEyuvfoc G MickeyFacility:[facility] HospitalStart: 07-31-2024 End: 34-49-9163qfuikpvcxsXGZAGyjenojn:[facility] HospitalStart: 07-31-2024 End: 79-64-4038Knrdwxi encounter procedureAndrology Fishing Gear Mechanic Work Phone: [facility] Andrology LaboratoryComment on above: Procreative management (Primary Dx)Start: 07-30-2024 End: 63-21-0052Qivcmsmgx encounterMelodie Hernandez RISK MANAGEMENT INTERN.METAL CUT OFF SAW TENDER Work Phone: Reproductive Endocrinology InfertilityComment on above:Patient QuestionStart: 07-25-2024 End: 58-19-3854aclqbfdjusSFRYXizzgboz:[facility] HospitalStart: 07-07-2024 End: 12-15-8085enoytqgcmnDKYUTMZI TANTIBHEDHYANGKULFacility:[facility] Hospitaltart: 07-07-2024 End: 52-42-9771Htkhdyh encounter procedureAndrology Fishing Gear Mechanic Work Phone: [facility] Andrology LaboratoryComment on above: Procreative management (Primary Dx)Encounter for artificial insemination (Primary Dx)Start: 07-06-2024 End: 89-56-8468Hhoegtfil encounterMelodie Hernandez RISK MANAGEMENT INTERN.METAL CUT OFF SAW TENDER Work Phone: Reproductive Endocrinology InfertilityComment on above:Patient calling back/re iui 07/07 unsureStart: 07-05-2024 End: 83-32-8360Zhpomerqv encounterIgnacio Guy MD Work Phone: reproductive Endocrinology InfertilityComment on above:re iui this wknd/has cervical polyp questionStart: 07-04-2024 End: 01-72-0733Wtvpxadyr encounterMelodie Hernandez RISK MANAGEMENT INTERN.METAL CUT OFF SAW TENDER Work Phone: Reproductive Endocrinology InfertilityComment on above:Treatment PlanningStart: 07-04-2024 End: 94-85-7339ywmarmxiomDchlwxa G Mickey RISK MANAGEMENT INTERN.METAL CUT OFF SAW TENDER Work Phone: Reproductive Endocrinology InfertilityComment on above:OvulatingStart: 07-04-2024 End: 83-96-8791Kulmeht encounter procedureUs Tech 3 [facility] Beac Work Phone: Reproductive Endocrinology InfertilityStart: 07-02-2024 End: 65-20-8498vvkhxaslibXXSEWSZ MICKEYFacility:[facility] HospitalStart: 06-29-2024 End: 12-13-5915xhljzsnidoIGLUNEH MICKEYFacility:[facility] HospitalStart: 06-23-2024 End: 20-49-8698skahzzeinmErstacc G David RISK MANAGEMENT INTERN.METAL CUT OFF SAW TENDER Work Phone: Reproductive Endocrinology InfertilityComment on above:Negative test and possible hematomaStart: 06-09-2024 End: 01-71-9900dqhptenwsfUAKJGH ATTARANFacility:[facility] HospitalStart: 06-09-2024 End: 17-16-4640Pnofkct encounter procedureAndrology Fishing Gear Mechanic Work Phone: [facility] Andrology LaboratoryComment on above: Procreative management (Primary Dx)Female infertility (Primary Dx)Start: 06-05-2024 End: 29-13-4376hbcjibjdwlUwuqtem G David RISK MANAGEMENT INTERN.METAL CUT OFF SAW TENDER Work Phone: Reproductive Endocrinology InfertilityStart: 06-05-2024 End: 54-63-8524Zkkheei encounter procedureLiliana G David RISK MANAGEMENT INTERN.METAL CUT OFF SAW TENDER Work Phone: Reproductive Endocrinology InfertilityComment on above:IUI appointmentStart: 05-22-2024 End: 13-15-6547pnafelbervBecjpfx G David RISK MANAGEMENT INTERN.METAL CUT OFF SAW TENDER Work Phone: Reproductive Endocrinology InfertilityComment on above:Progesterone resultsStart: 05-21-2024 End: 35-20-3060gmxlpxjiojJamiojk G MickeyFacility:[facility]Start: 05-18-2024 End: 11-42-6850mvnbqwrwfiSBELGWN MICKEYFacility:[facility] HospitalStart: 05-09-2024 End: 99-51-2704xjdrtdfbnfEtlxgml G David RISK MANAGEMENT INTERN.METAL CUT OFF SAW TENDER Work Phone: Reproductive Endocrinology InfertilityComment on above:Reproductive mgmt, 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)Start: 05-09-2024 End: 05-58-6120Fazocndkkmtg consultation with Washington Hernandez APRN.CNP Work Phone: Reproductive Endocrinology InfertilityStart: 05-06-2024 End: 96-94-7810srpruqrerfQewlpkmBridget Hernandez APRN.METAL CUT OFF SAW TENDER Work Phone: Reproductive Endocrinology InfertilityComment on above:Consent formStart: 05-02-2024 End: 88-64-5124Vlziyzpwhocp consultation with Rufino Enriquez PhD Work Phone: [facility] CenterComment on above:Bipolar 1 disorder (Multi) (Primary Dx); Infertility counselingStart: 05-02-2024 End: 18-84-9829qbwtvbmubmOIIUMD Nikole [facility] AmbulatoryStart: 04-26-2024 End: 09-88-2795dsvyullmptOscechrqsMain Campus Medical Center Work Phone: Start: 04-26-2024 End: 55-84-8037Nhdicxf encounter procedureAn[facility] Physician [facility] Work Phone: Start: 04-24-2024 End: 28-25-5156ckfigaklevJFWKNAW MICKEYFacility:[facility] Hospitaltart: 04-23-2024 End: 29-30-2286lhoxbkxuoxDfndyzxqkMain Campus Medical Center Work Phone: Start: 04-23-2024 End: 84-36-2031Ncsgelu encounter procedureAnson Community Hospital Physician [facility] Work Phone: Start: 04-02-2024 End: 94-78-8517rblqcarasaTmahexcBridget Hernandez APRN.METAL CUT OFF SAW TENDER Work Phone: Reproductive Endocrinology InfertilityComment on above:Genetic testingStart: 03-09-2024 End: 85-99-1688eickofdyyoOwshwpbSue Hernandez APRN.METAL CUT OFF SAW TENDER Work Phone: Reproductive Endocrinology InfertilityComment on above:Reproductive mgmt, 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); Special screening examination for infectious diseases; Encounter for other genetic testing of female for procreative managementStart: 03-09-2024 End: 02-81-1573Qbjhucwvlcpg consultation with Washington Hernandez APRN.CNP Work Phone: Reproductive Endocrinology InfertilityStart: 02-29-2024 End: 85-38-4039jqlslpxiifIDEVRIH MICKEYFacility:[facility] Hospitaltart: 02-28-2024 End: 64-08-6526zmnnidqqtnXAUILU ATTARANFacility:[facility] Hospitaltart: 02-28-2024 End: 67-58-8935Wvzoqqe encounter Ana Rosa Guy MD Work Phone: reproductive Endocrinology InfertilityComment on above: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)Start: 02-27-2024 End: 51-48-6817ydeewawaxdCufewjtx Rohrbacher APRN Work Phone: [facility] Work Phone: Start: 02-27-2024 End: 33-64-0163Kngnkhk encounter procedureAmanda Ford APRN Work Phone: [facility] Work Phone: Start: 40-54-3784Ocs-patient / Non-visitAnson Community Hospital [facility] Work Phone: Start: 02-20-2024 End: 75-76-0911Ukczfdm encounter procedureCorey Juan DO Work Phone: noMS HealthcareStart: 02-20-2024 End: 22-05-5066Bqsvfiaq preventive med est patient 18-39 yrsCorey Juan DO Work Phone: noms BCP OBComment on above:Well woman exam with routine gynecological examStart: 02-20-2024 End: 60-63-4795Ijpjlt flowsheetCorey Juan DO Work Phone: noms BCP OBStart: 02-20-2024 End: 00-23-2416Edmxcv flowsheetCorey Juan DO Work Phone: N[facility] BCP OBStart: 02-20-2024 End: 08-93-6754Dsjqjcadt Result EncounterCorey Juan DO Work Phone: N[facility] External Department UnsolicitedStart: 01-17-2024 End: 75-63-9269iimmngtizqTHRE Jennifer Rohrbacher Work Phone: [facility] Work Phone: Start: 01-17-2024 End: 13-12-3692Tdnqldm encounter procedureMELY Ford Work Phone: [facility] Work Phone: Start: 00-10-1100Wzn-patient / Non-visitAPRTanja Ford Work Phone: [facility] Work Phone: Start: 12-20-2023 End: 15-22-9789lwsctztukxZYXR Jennifer Rohrbacher Work Phone: [facility] [facility] Work Phone: Start: 12-20-2023 End: 37-59-7972Dujdhou encounter procedureMELY Ford Work Phone: [facility] Work Phone: Start: 06-59-1636bobdmurrqwTbwbl Bailey [facility]: 24-11-0600Gph-patient / Non-visitAPRTanja Ford Work Phone: [facility] Work Phone: Start: 12-07-2023 End: 99-35-9240Oipadilbb to same day surgery centerMELY Ford Work Phone: [facility]: 12-07-2023 End: 94-31-0602wxqtqtqjqrOEQVShima Ford Work Phone: [facility] Work Phone: Start: 12-01-2023 End: 62-59-5458bjnvthbbprAATP Jennifer Rohrbacher Work Phone: [facility] Work Phone: Start: 12-01-2023 End: 87-50-1582Fjzltlu encounter procedureMELY Ford Work Phone: [facility] Work Phone: Start: 11-28-2023 End: 13-15-3117lrbtmczhrzDKLFShima Ford Work Phone: [facility] Work Phone: Start: 11-28-2023 End: 67-56-7575Cuezdvh encounter procedureMELY Ford Work Phone: [facility]-Pre-Surgical Testing Work Phone: Start: 11-02-2023 End: 34-21-6313Ezsjhahuc department patient visitAmanda Ford Facility:[facility]: 11-01-2023 End: 37-67-6640ocyuyjsvcmJDSGShima Ford Work Phone: [facility] Work Phone: Start: 11-01-2023 End: 64-59-4382Ihxiwcl encounter procedureMELY Ford Work Phone: [facility] Work Phone: Start: 10-26-2023 End: 52-87-8860rgmqqwvwhbZLCL Jennifer Rohrbachenikkie Work Phone: [facility] Work Phone: Start: 10-26-2023 End: 08-53-6377Iawaaiy encounter procedureAPRTanja Patel Rosarioacher Work Phone: [facility] Work Phone: Start: 10-13-2023 End: 92-53-5765mbsvhpchgcRrhseixqh [facility] Work Phone: Start: 10-13-2023 End: 69-55-9545Icryjnl encounter procedureChristoph [facility] Work Phone: Start: 55-47-9667Tlv-patient / Non-visitChad [facility] [employer] Work Phone: Start: 06-08-2023 End: 84-85-0144qqecayexbnWpdixhjcqS[facility] Work Phone: Start: 06-08-2023 End: 45-20-4124Qojkmts encounter procedureChad [facility] Work Phone: Start: 05-17-2023 End: 77-53-0570mpizxifmukTqtxfewt Merylrbacher Other [employer] Other Start: 51-12-6699Lkvzgu outpatient visit 15 minutes Romeo [facility] OrthopedicsStart: 56-60-1001Xcovjuefo encounterJennifer RohrbacherFPG [facility] ClinicStart: 05-17-2023 End: 18-63-1750Ysrehhe encounter procedureChad Physician Group-Start: 04-28-2023 End: 26-88-7893wickpgfincJpswguzp Rohrbacher Other [employer] Other Start: 03-86-5320Qhcjisxkl encounterJennifer RohrbacherFPG [facility] ClinicStart: 04-22-2023 End: 31-64-4943mnsgoliffsVaqzzyzc Rohrbacher Other [email or web address] Other Start: 82-74-7100Lassqurui encounterJennifer RohrbacherFPG [facility] ClinicStart: 04-19-2023 End: 11-09-6549dtlcioonitCryzsfjc Rohrbacher Other [email or web address] Other Start: 79-18-9960Lusjodhcg encounterJennifer RohrbacherFPG [facility] RoadStart: 04-14-2023 End: 65-89-8773mkjwgootjyVuugvyed Rohrbacher Other [email or web address] Other Start: 91-99-8825Vhihhkwhv encounterJeaicha RohrbacherFPG [facility] ClinicStart: 03-17-2023 End: 70-66-7581ccjzvlnnlcRfhxy Bailey Other [email or web address] Other Start: 87-33-8817Samsxjclj encounterRomeo Bazzi OrthopedicsStart: 02-07-2023 End: 01-61-0132ieezagpesrHwjywmrd Rohrbacher Other [email or web address] Other Start: 59-58-7111Ddsfls outpatient visit 15 minutes Petr [facility] uskyStart: 22-23-8521Erguilxan encounter Amanda ShethrbacherFPG [facility] ClinicStart: 01-27-2023 End: 67-03-1777tdltifzwlxGnxoueog Rohrbacher Other [email or web address] Other Start: 44-96-9725Gynjjlrwq encounterJennifer RohrbacherFPG [facility] [place] SpringsStart: 01-19-2023 End: 73-35-4795dksmxbrzscCalgnjae Rohrbacher Other [email or web address] Other Start: 21-48-8907Figcjzlfb encounterJennifer RohrbacherFPG [facility] ClinicStart: 01-13-2023 End: 08-49-0444fdjtqjwqnnOrphcbtl Rohrbacher Other [email or web address] Other Start: 72-38-4543Igvvbefcg encounterJennifer RohrbacherFPG [facility] ClinicStart: 01-10-2023 End: 26-24-4924uqueznpqmoMsumnejk Rohrbacher Other [employer] Other Start: 14-70-0241Eqqefyqdt encounterJennifer RohrbacherFPG [facility] ClinicStart: 01-06-2023 End: 61-58-0494sizwmnfdxxFwcflgkf Rohrbacher Other [email or web address] Other Start: 42-21-7740Wpfajwyjc encounterJennifer RohrbacherFPG [facility] ClinicStart: 12-27-2022 End: 39-24-5432gscpgboqjdEysrslw Alireza Other [email or web address] Other Start: 68-66-9476Mzejia outpatient visit 15 minutes Petr [facility] [place]Start: 11-10-2022 End: 36-91-2874wirosagtqdNyipuecp Rohrbacher Other [email or web address] Other Start: 41-69-0102Rumfrhyrt encounterJennifer RohrbacherFPG [facility] [place]Start: 10-21-2022 End: 10-12-7289oxyuirzsvpQyvkhcnb Rohrbacher Other [employer] Other Start: 35-96-8398Xqugvpsky encounterJennifer John Family [facility]Start: 10-11-2022 End: 97-32-0240eepvfhjvehBzcrhlk Widmer Other [email or web address] Other Start: 46-41-6361Gserbt consultation new/estab patient 40 minMatthew BimerFPG [facility] [place]Start: 09-30-2022 End: 08-40-3955ukzyaohhcuRrcrjtva Rohrbacher Other [employer] Other Start: 70-95-2019Jpjzcc outpatient visit 15 minutes Amanda RosarioangelDanika Family [facility] HospitalStart: 08-25-2022 End: 74-50-8063nrsirggimaLzncwqpn Rohrbacher Other [employer] Other Start: 09-92-6174Xzsgzr outpatient visit 15 minutes Amanda ShethsarahangelDanika Family [facility] NaplestonStart: 08-20-2022 End: 79-60-5328cvecftmwbcGoxqfuhb Rohrbacher Other [employer] Other Start: 04-54-9120Rafajy outpatient visit 15 minutes Amanda RosarioangelDanika Family [facility] [place]plestonStart: 07-19-2022 End: 50-05-3182plvoezwigzAxrqrhaw Rohrbacher Other [employer] Other Start: 96-83-7095Pqpzhdfth encounterJennifer MerylrbacherF Family [facility] NaplestonStart: 07-08-2022 End: 17-72-2290ecixwckqbzQryfrhqr Rohrbacher Other [employer] Other Start: 79-06-7109Shzkhwiiq encounterAmanda LopezNew Bridge Medical CenterStart: 06-23-2022 End: 72-59-8570jutvaqtwmkLQML Jennifer Rohrbacher Work Phone: [facility] Work Phone: Start: 06-23-2022 End: 78-21-2618Qhkzlvu encounter procedureAPRTanja Ford Work Phone: [facility]-Lab [place] Work Phone: Start: 06-17-2022 End: 16-01-5561ihfvfflsbmNxkvkeui Rohrbacher Other [employer] Other Start: 00-73-3921Vguicpzlg encounterAmanda FordNoresearch medical center[facility] Coverrt: 06-16-2022 End: 40-79-3702ysihzfbihlYJXV Jennifer Rohrbacher Work Phone: [facility] Work Phone: Start: 06-16-2022 End: 11-07-1036Xinzmrm encounter procedureAPRTanja Amandahina Ford Work Phone: [facility]-Lab [place] Work Phone: Start: 06-10-2022 End: 85-53-9136Lvbciwbkpk and management of inpatientMD Mariam Appiah Work Phone: [facility]-4 [facility] Work Phone: Start: 55-71-8630tachnsaopvl encounterMD Mariam Appiah Work Phone: [facility] Work Phone: Start: 06-09-2022 End: 23-70-5603uxekxwkcoaMF Mariam Appiah Work Phone: [facility] Work Phone: Start: 06-09-2022 End: 69-41-6584Dngxdph encounter procedureMD Mariam Appiah Work Phone: [facility]-Lab [place] Work Phone: Start: 04-26-2022 End: 02-15-0123uqyvfqqnwnNbjbpdfn Rohrbacher Other [employer] Other Start: 87-49-4716Jfidpexdy encounterArtemionnifer RosarioachenikkieFlourish Prenatal Coverrt: 04-23-2022 End: 34-85-6598ijmoavqodhOqebjkkk Rohrbacher Other [employer] Other Start: 28-45-9744Qkpybqdea encounterJennifer MerylrbacheHCA Midwest DivisionM-Dot Networkrt: 04-21-2022 End: 91-04-0137Xdwwrcxk ReferredMD Mariam Appiah Work Phone: [facility]-Lab [place] Work Phone: Start: 04-21-2022 End: 15-73-9164yyzsvusiioRR Mariam Appiah Work Phone: [facility] Work Phone: Start: 41-60-1383Oivrxu outpatient visit 15 minutes Amanda LopezNew Bridge Medical CenterStart: 04-20-2022 End: 58-59-9191ymfcqftsdsEwrpoddz Rohrbacher Other [employer] Other Start: 80-90-5519Nebkkeeql encounterAmanda ShethrbacherFNew Bridge Medical CenterStart: 04-13-2022 End: 27-56-3753yminapzmjaKalyuigy Rohrbacher Other [employer] Other Start: 98-40-9119Iozpohkfu encounterJennifer MerylrbacherNoresearch medical center-[facility] Coverrt: 04-10-2022 End: 86-11-4648Vesfmhgos department patient visitMD Mariam Appiah Work Phone: [facility]-Emergency Room Work Phone: Start: 04-08-2022 End: 91-97-3649Uecwxzifa department patient visitMD Mariam Appiah Work Phone: [facility]-Emergency Room Work Phone: Start: 03-30-2022 End: 52-25-7176qsjuffvxxiLuotoarv Rohrbacher Other [employer] Other Start: 86-72-9033Zdaznwbai encounterJennifer MerylrbacherFHighland Springs Surgical Center ClintonStart: 03-23-2022 End: 89-93-9540Myprhjz encounter procedureMD Mariam Appiah Work Phone: [facility] ClintonStart: 03-23-2022 End: 41-18-7834lzecgfdtsuPpsnupve Rohrbacher Other [employer] Other Start: 07-02-4710Bmjlrd outpatient visit 15 minutes Amanda Lopez Family [facility] ClintonStart: 03-17-2022 End: 61-22-3603nswmahdjinVxoquplt Rohrbacher Other [employer] Other Start: 25-40-9313Mkoeysuql encounterJennifer MerylrbacherFPG Family [facility]plestonStart: 02-08-2022 End: 98-34-6018fvnouookrnDopjgpbj Rohrbacher Other [employer] Other Start: 15-03-5207Tmihhm outpatient visit 25 minutes Amanda LopezNew Bridge Medical CenterStart: 09-01-2021 End: 40-07-9083Ivpnldr encounter Afshan Thompson [facility] Start: 08-25-2021 End: 37-18-7107Jktexqr encounter Afshan Thompson [facility] Start: 08-06-2021 End: 14-17-1816Jrwxxnu encounter Afshan Thompson [facility] Start: 07-24-2021 End: 70-51-0497Tdlyrrq encounter Afshan Thompson [facility] Start: 07-23-2021 End: 44-85-4036jecqzsfamdCfdgpiyj Rohrbacher Other [employer] Other Start: 40-57-2973Vvtazphit encounterAmanda FordAshford Mov[employer] CoStart: 07-16-2021 End: 86-04-8490jeduuibadqBnmngfcs Merylrbacher Other [employer] Other Start: 44-46-3590Yhyqkb outpatient new 30 minutes Amanda LopezNew Bridge Medical CenterStart: 03-30-2021 End: 83-29-8906Mwhqfpgwi department patient visitMARIAM APPIAHSycamore Medical Centertart: 05-06-2020 End: 02-99-9124nnnfkzczucFPBLISE R JOHNSMemorial Health System [facility] Start: 05-06-2020 End: 01-46-9989Fmphjwbaot hospital visit by Magui Olivera Work Phone: stvz 2C Ortho/Med SurgComment on above:Post-op pain (Primary Dx)Start: 05-02-2020 End: 76-82-5015Cinftlk encounter procedureLU [facility] HospitalStart: 05-02-2020 End: 76-39-0409Oiyeyisnvn hospital visit by physicianStcdoroteo Covid Screening ScheduleSTCZ Covid ScreeningComment on above:Pre-op testing (Primary Dx)Start: 04-22-2020 End: 21-77-6148szvpgspsxfBSIFVZRMemorial Health System [facility] Start: 04-22-2020 End: 76-92-6580atkmmyloxeCTSTSHTMemorial Health System [facility] Start: 04-22-2020 End: 15-38-4584Wktfidijis hospital visit by physicianSfatoumata C-Arm [address] [place] [address] RadiologyComment on above:ArrivedStart: 04-22-2020 End: 62-77-3866Dgwcehtnih hospital visit by physicianSraisa Pat 2STVZ Pre-Admit Testing Procedures DateProcedureProcedure DetailPerforming ClinicianStart: 92-36-1216CU OB BPP W NON-STRESSCorey Juan DO Work Phone: Start: 95-00-5790BFM THYROID STIM HORMONECorey Juan DO Work Phone: Start: 01-18-8117Qcqsg dip stick/tablet rgnt non-auto w/o micrscpCorey Juan DO Work Phone: Start: 92-30-1567Kxeih dip stick/tablet rgnt non-auto w/o micrscpAmy Kwaku OGDEN Work Phone: Start: 88-50-0914Vaiiv dip stick/tablet rgnt non-auto w/o micrscpMima Duenas NP Work Phone: Start: 95-58-7001ABW THYROID STIM HORMONECorey Juan DO Work Phone: Start: 67-44-1983CDV CBC WITH AUTO DIFFAmy Kwaku OGDEN Work Phone: Start: 91-78-2985HQJGMCU 1 HOURAmy Kwaku OGDEN Work Phone: Start: 44-98-7699Ndmlm dip stick/tablet rgnt non-auto w/o micrscpAmy Kwaku OGDEN Work Phone: Start: 67-75-2043JIP UA (CLEAN/CATCH) CARDIOLOGY COORDINATOR/MICRO IF IND.Les Juan DO Work Phone: Start: 98-75-3970JHY URINE MICROSCOPIC ONLYCorey Juan DO Work Phone: Start: 63-28-5023Dnogn dip stick/tablet rgnt auto w/o microscopyRichard A Visci DO Work Phone: start: 93-31-0060MKGIRIRCR VAGINITIS (HTRX)Les Juan DO Work Phone: Start: 94-72-8956BHG THYROID STIM HORMONECorey Juan DO Work Phone: Start: 94-16-3527Uujhf dip stick/tablet rgnt non-auto w/o micrscpCorey Juan DO Work Phone: Start: 92-72-6543Vohef dip stick/tablet rgnt non-auto w/o micrscpCorey Juan DO Work Phone: Start: 92-63-2811UCOAKCBX LAB TESTNot In System Ref ProvStart: 53-74-6588Solbhcyj identification testAmanda Ford RISK MANAGEMENT INTERN Work Phone: Start: 72-27-8228Mirrjsdrwkuqw of growth of fungi Amanda Ford RISK MANAGEMENT INTERN Work Phone: Start: 81-37-6535Qmtvjfbvnmo vaginalis detection Amanda Ford RISK MANAGEMENT INTERN Work Phone: Start: 34-66-1285Vpwwd cultureJennifer Logan RISK MANAGEMENT INTERN Work Phone: Start: 96-64-0946Lxmwmpsfub ultrasound of gravid uterusArtemionnedmundo Ford RISK MANAGEMENT INTERN Work Phone: Start: 65-71-3265PELRQNAF LAB TESTNot In System Ref ProvStart: 65-84-0719KGN TESTCorey Juan DO Work Phone: Start: 65-25-1029Wfshhfyo rubellaNot In System Ref ProvStart: 59-84-3042Inguszxf Zak Lindquist MD Work Phone: Start: 69-07-9961Xfwlniklpu glycosylated h9uMojrfacp Provider ExternalStart: 77-57-0682XPG 1&2 AB/AG SCREEN (P24 AG)Not In System Ref ProvStart: 22-17-2550Advz ia hepatitis b surface antigenNot In System Ref Prov Start: 36-10-0079MFAIXRGK TOTAL(UNKNOWN SYPHILIS STATUS)Not In System Ref Prov Start: 22-26-2887BKWR AND SCREENNot In System Ref ProvStart: 09-21-2024 ULTRASOUND OFFICENot In System Ref ProvStart: 62-93-1093Bgrvu dip stick/tablet rgnt non-auto w/o micrscpCorey Juan DO Work Phone: Start: 03-22-8865Lg preg uterus after 1st trimest / gestationLiliana G David RISK MANAGEMENT INTERN.METAL CUT OFF SAW TENDER Work Phone: Start: 86-23-8864Dm preg uterus after 1st trimest / gestationLiliana G David RISK MANAGEMENT INTERN.METAL CUT OFF SAW TENDER Work Phone: Start: 49-98-5806Wx pelvic nonobstetric real-time image Nydia Guy MD Work Phone: start: 23-44-8700Juvhwqdm screenLILIANA MICKEYComment on above:Order Comment: Specimen Type: BLOOD SPECIMEN Ordering Facility: [facility] Address: [address] [place], [place] [address]Performed By: #### TSPN #### ELO [facility]LO[facility] [id number] [place] [address] [place] AMERICAStart: 03-48-7127IRM,APTIMA HPV,AGE GDLN Les Monsivaiso DO Work Phone: Start: 74-21-9520Exnlomtvdka observation [Identifier] in Cervix by Rose Enriquez PhD Work Phone: Start: 06-83-8156PC Shoulder Scope RCR/Biceps Tendon (Right)RISK MANAGEMENT INTERN Amanda Logan Work Phone: Start: 03-66-3332Zprvcbeu tomography of abdomen and pelvis with contrastMD Mariam Appiah Work Phone: Start: 52-52-7318Idygicmna for occult blood in fecesMD Mariam Appiah Work Phone: Start: 74-07-6303Smqxm cultureMD Mariam Appiah Work Phone: Start: 29-22-7982Qtmyf cultureMD Mariam Appiah Work Phone: Start: 89-51-0749Nupyk X-ray of right shoulderMD Mariam Appiah Work Phone: Start: 22-62-6466Mcaad metabolic panel calcium total Rei Montez Work Phone: Start: 25-44-1096Zfeaq count complete auto&auto difrntl wbcMichael A Montez Work Phone: Start: 64-41-3590Tjntr esophagusGregdriss R Olivera Work Phone: Start: 82-01-9898Yirjh metabolic panel calcium total Rashard R Olivera Work Phone: Start: 99-46-1560Fyyza count complete automatedGregdriss R Olivera Work Phone: Start: 63-48-9741Anfya metabolic panel calcium total Rashard R Olivera Work Phone: Start: 25-98-8047Pzrsh count complete automatedRashard Olivera Work Phone: Start: 05-06-2020 End: 16-22-5934PVSLDCDRXKI SLEEVE LAPAROSCOPIC ROBOTICRashard Olivera Work Phone: Start: 11-79-4443Suowv test visual color cmprsn methsGlisa Olivera Work Phone: Start: 50-14-5867Aagey iv surg pathology gross&microscopic examRashard Olivera Work Phone: Start: 54-47-1859Jslvyrcbvz exam chest 2 viewsRashard Olivera Work Phone: Start: 36-29-5467Djzpo of nicotineRashard Olivera Work Phone: Start: 41-08-8099Byxvq metabolic panel calcium total Rashard Olivera Work Phone: Start: 38-26-2556Dmnmw count complete Idania Olivera Work Phone: Start: 48-91-3537Oxlaugfhqly timeRashard Olivera Work Phone: Start: 34-94-1867Wrxdjbaeamfcjd time partial plasma/whole bloodRashard Olivera Work Phone: Start: 55-12-0935Zvk routine ecg w/least 12 lds i&r onlyRashard Olivera Work Phone: Start: 31-96-6663ZVX REPORTHpf ScanningCholecystectomy Samir Thompson Comment on above:2016 Plan of Treatment DateCare ActivityDetailAuthorStart: 55-20-8512UZF Vaccine (1 - 1-dose 75+ series)RSV Vaccine (1 - 1-dose 75+ series)[facility] Hospitaltart: 2045 Zoster Vaccines (1 of 2)Zoster Vaccines (1 of 2)[facility] CampusStart: 86-57-6985LHhK,Tdap and Td Vaccines (2 - Td or Tdap)DTaP,Tdap and Td Vaccines (2 - Td or Tdap)[facility] SystemStart: 12-25-2032 DTaP/Tdap/Td Vaccines (2 - Td or Tdap)DTaP/Tdap/Td Vaccines (2 - Td or Tdap) [facility] CampusStart: 89-99-8943Agecx microalbumin profile DTaP,Tdap,Td Vaccine (2 - Td or Tdap)[facility] Hospitaltart: 65-00-5893Wydaxifkw for malignant neoplasm of cervixUnMercy Health [facility]: 33-90-3697Yzmcq BMI ScreeningAdult BMI ScreeningProLakehealth [facility] SystemStart: 53-76-4120Cryaxsc ScreeningTobacco ScreeningProChillicothe Hospitaltart: 12-05-2025 End: 76-20-0888SM MFM with or without consultUS MFM with or without consult Imaging Routine Previous gastric bypass affecting , antepartum Hypothyroidism affecting in second trimester Bipolar disease during in second trimester ([facility]) Obesity affecting in second trimester, unspecified obesity type Encounter for supervision of resulting from assisted reproductive technology, antepartum Expected: 12/05/2025 (Approximate), Expires: 12/05/2025[facility] Work Phone: comment on above:Expected: 12/05/2025 (Approximate), Expires: 12/05/2025Start: 08-21-2025 End: 08-18-3747Lwfxcgb encounter procedureNONEW HORIZONS MEDICAL CENTERStart: 03-06-2025 End: 85-90-7791Jqgmevk encounter gcbvpbjuk86/19/2025 10:30 AM EST Routine GUDELIA HERNANDEZ [address] [place] [address] Jojo Ames PA [address] [place], [place] [id number] GUDELIA SHERMANGYNStart: 03-05-2025 End: 51-79-1994Rgygzeu encounter kfohojudr98/18/2025 11:15 AM EST Appointment [facility] - Ultrasound [address] [place] [address] [phone] [facility] - UltrasoundStart: 02-20-2025 End: 01-22-1387Rfllebs encounter procedureNOMS BCP OBStart: 02-19-2025 End: 05-01-1817RX biophysical profile w non stress testUS biophysical profile w non stress test Imaging Routine TSH (thyroid-stimulating hormone deficiency) Expected: 02/19/2025 (Approximate), Expires: 08/19/2025[facility] Work Phone: comment on above:Expected: 02/19/2025 (Approximate), Expires: 08/19/2025Start: 02-19-2025 End: 08-11-6278Hhyqsda encounter uqqjdfuau84/04/2025 1:00 PM EST Routine NOMMarixa [place] [facility] [address] [id number] Les Martinez DO [address] [place], [place] [id number] NOMS [facility] OBGYNStart: 02-07-2025 End: 16-42-7700DL MFM with or without consultUS MFM with or without consult Imaging Routine Hypothyroidism affecting in second trimester headache in second trimester Previous gastric bypass affecting , antepartum Bipolar disease during in second trimester ([facility]) Expected: 02/07/2025, Expires: 02/07/2026[facility] Work Phone: comment on above:Expected: 02/07/2025, Expires: 02/07/2026Start: 02-07-2025 End: 31-19-4070Gmihhcj encounter fogwclpzu09/23/2025 9:45 AM EDT Appointment [facility] [place] [address] [facility] [address] [place] [address] [phone] Medicine [place] SpringsStart: 02-06-2025 End: 37-16-7242Uusygsz encounter procedureNOMS [place] OBGYNComment on above: ArrivedStart: 02-03-2025 End: 78-63-2940IH MFM with or without consultUS MFM with or without consult Imaging Routine Previous gastric bypass affecting , antepartum Hypothyroidism affecting in second trimester Bipolar disease during in second trimester ([facility]) Obesity affecting in second trimester, unspecified obesity type Expected: 02/03/2025 (Approximate), Expires: 01/04/2026[facility] Work Phone: comment on above:Expected: 02/03/2025 (Approximate), Expires: 01/04/2026Start: 01-30-2025 End: 70-45-9868Ugfzpqdnzcot / ancillary services rwrxgweufk41/15/2025 2:30 PM EDT Ancillary Procedure [facility] [address] [place] [address] [place] [id number] NOMS [facility]co OBGYNStart: 01-16-2025 End: 33-76-8488OC for pregnancyUS OB follow up transabdominal approach Imaging Routine TSH (thyroid-stimulating hormone deficiency) Expected: 01/16/2025, Expires: 05/19/2025[facility] Work Phone: comment on above:Expected: 01/16/2025, Expires: 05/19/2025Start: 01-16-2025 End: 28-08-4151Lufscxn encounter procedureNOMS [place] OBGYNComment on above: ArrivedStart: 01-03-2025 End: 31-55-9089Yuxjdbj encounter evsxfvvsm51/18/2025 2:15 PM EDT Appointment [facility] [place] [address] [facility] [address] [place] [address] [phone] Medicine [place] SpringsStart: 12-19-2024 End: 23-16-0014RKI panel - Blood by Automated countCBC Lab Routine Diabetes mellitus screening Expected: 12/19/2024 (Approximate), Expires: 12/19/2025[facility] Work Phone: comment on above:Expected: 12/19/2024 (Approximate), Expires: 12/19/2025Start: 12-19-2024 End: 20-55-1450Lxcvrxjezgi of glucose 1 hour after glucose challenge for glucose tolerance testGlucose tolerance, 1 hour Lab Routine Diabetes mellitus screening Expected: 12/19/2024 (Approximate), Expires: 12/19/2025[facility] HealthcareComment on above:Expected: 12/19/2024 (Approximate), Expires: 12/19/2025Start: 12-19-2024 End: 55-54-3688Eieuede encounter procedureNOMS [place] OBGYNComment on above: ArrivedStart: 93-97-6637GKTJK-19 Vaccine ()COVID-19 Vaccine ()[facility] SystemStart: 24-73-1670Zhglsfyvo vaccination [facility] Hospitaltart: 12-05-2024 End: 44-94-1508Ehrzjwc encounter procedureDetwiler [facility] US ImagingStart: 12-04-2024 End: 02-74-2405Yqroggzvufuk / ancillary services jruljtnzti94/19/2025 8:30 AM EDT Ancillary Procedure GUDELIA [place] [facility] [address] [place] [address] [place] [address] IBBQ Ricco OBGYNStart: 88-26-3426Wljgjkoo admission [facility] Centertart: 04-97-2613AmixthibtOhioHealth Arthur G.H. Bing, MD, Cancer Centertart: 44-93-0158Agpgxkye identified in Urine by CultureUrine Culture [facility] Centertart: 11-30-2024 End: 68-33-0976Cueqe cultureOhioHealth Arthur G.H. Bing, MD, Cancer Centertart: 11-20-2024 End: 09-05-0517Viwdo fetoprotein, maternalAlpha fetoprotein, maternal Lab Routine Need for maternal serum alpha-protein (MSAFP) screening ([facility]) Expected: 11/20/2024 (Approximate), Expires: 12/21/2024[facility] HealthcareComment on above:Expected: 11/20/2024 (Approximate), Expires: 12/21/2024Start: 11-20-2024 End: 82-72-7539CF for pregnancyUS OB 14+ weeks anatomy scan Imaging Routine Screening, , for anatomic survey ([facility]) Expected: 11/20/2024 (Approximate), Expires: 02/20/2025NOMS HealthcareComment on above:Expected: 11/20/2024 (Approximate), Expires: 02/20/2025Start: 11-20-2024 End: 13-43-0023Lflifga encounter procedureNOMS BCP OBComment on above:Arrived Start: 10-22-2024 End: 83-44-3565Rmcdlms encounter cvrvutdkb35/07/2025 11:20 AM EDT Routine [facility] BCP OB [address] [place] [address] Les Martinez, DO [address] [place] [address] [facility] BCP OBStart: 02-02-9364Kytraidn identified in [facility]rine [facility] Start: 67-66-4965Fpzqebt CultureGenital City [facility] Start: 90-34-2684Hcuzl [facility]: 10-18-2024 [facility]: 09-20-2024 End: 78-43-6797YED/RhABO/Rh Lab Routine Missed menses , unspecified gestational age Expected: 09/20/2024 (Approximate), Expires: 09/20/2025NOOH HealthcareComment on above:Expected: 09/20/2024 (Approximate), Expires: 09/20/2025Start: 09-20-2024 End: 48-45-7102Pxmyd type and Indirect antibody screen panel - BloodType and screen Lab Routine Missed menses , unspecified gestational age Expected: 09/20/2024 (Approximate), Expires: 09/20/2025[facility] Work Phone: comment on above:Expected: 09/20/2024 (Approximate), Expires: 09/20/2025Start: 09-20-2024 End: 54-67-2354Wmzvz of abuse panel - Urine by Screen methodRapid drug screen, urine Lab Routine , unspecified gestational age Encounter for supervision of normal first in first trimester Expected: 09/20/2024 (Approximate), Expires: 09/20/2025NOMS HealthcareComment on above:Expected: 09/20/2024 (Approximate), Expires: 09/20/2025Start: 09-13-2024 End: 85-90-7341ofdyvkaiht93/29/2025 2:30 PM EDT Initial [facility] [address] [place] [address] TVJM BCP OBStart: 09-13-2024 End: 16-56-1436Qqehwcwhkehd / ancillary services odbuvfurpl23/29/2025 2:00 PM EDT Ancillary Procedure [facility] OB [address] [place] [address] [facility] OBStart: 09-03-2024 End: 17-58-4394Znxdxpe evaluation of patient and reportReproductive Endocrinology InfertilityComment on above: scanob scan, non ivfStart: 08-22-2024 End: 160178-xioikwnrwoknsu D3 [Mass/volume] in Serum or PlasmaVitamin D 25 hydroxy Lab Routine H/O gastric bypass Vitamin D deficiency Expected: 08/22/2024 (Approximate), Expires: 08/22/2025MS HealthcareComment on above: Expected: 08/22/2024 (Approximate), Expires: 08/22/2025Start: 08-22-2024 End: 88-29-8839Aezmpxpkc (Vitamin B12) [Mass/volume] in Serum or PlasmaVitamin B12 Lab Routine H/O gastric bypass Expected: 08/22/2024 (Approximate), Expires: 08/22/2025NOMS HealthcareComment on above:Expected: 08/22/2024 (Approximate), Expires: 08/22/2025Start: 08-22-2024 End: 89-02-2794Grkaqgfv (aka Vitamin B1)Thiamine (aka Vitamin B1) Lab Routine H/O gastric bypass Expected: 08/22/2024 (Approximate), Expires: 08/22/2025NOMS HealthcareComment on above:Expected: 08/22/2024 (Approximate), Expires: 08/22/2025Start: 08-22-2024 End: 94-34-4599Ppvpgycxavz [Units/volume] in Serum or PlasmaTSH Lab Routine Abnormal thyroid function test Expected: 08/22/2024 (Approximate), Expires: 08/22/2025[facility] HealthcareComment on above:Expected: 08/22/2024 (Approximate), Expires: 08/22/2025Start: 08-22-2024 End: 36-11-1095Xkellescs (T4) free [Mass/volume] in Serum or PlasmaT4, free Lab Routine Abnormal thyroid function test Expected: 08/22/2024 (Approximate), Expires: 08/22/2025[facility] HealthcareComment on above:Expected: 08/22/2024 (Approximate), Expires: 08/22/2025Start: 08-22-2024 End: 50-52-4019Fjzkxmlwwhwweprb (T3) Free [Mass/volume] in Serum or PlasmaT3, free Lab Routine Abnormal thyroid function test Expected: 08/22/2024 (Approximate), Expires: 08/22/2025[facility] Work Phone: Comment on above:Expected: 08/22/2024 (Approximate), Expires: 08/22/2025Start: 08-22-2024 End: 33-04-4566Zckqkos encounter qgzinaksz09/07/2025 10:00 AM EDT Office Visit [facility] [address] [place] [id number] Darleen Sinclair MD [address] [place] [address] ArrivedMULTICARE [facility] ENDOCRINOLOGYComment on above:Arrived Start: 08-20-2024 End: 78-73-4516MTQJYSKEL ULTRASOUND WHIOBSTETRIC ULTRASOUND WHI Anc Imaging Routine 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) Expected: 08/20/2024, Expires: 08/20/2025[facility] Work Phone: Comment on above:Expected: 08/20/2024, Expires: 08/20/2025Start: 08-20-2024 End: 93-19-1984ihuvpkmdap70/05/2025 8:[address] [facility] Reproductive Endocrinology Infertility [address] [place] [address] Melodie Hernandez APRN.METAL CUT OFF SAW TENDER [address] [place] [address] preg apptReproductive Endocrinology Infertility Comment on above:preg apptStart: 07-07-2024 End: 51-41-9166Gasmcsz encounter procedureAlomere [facility] Comment on above:donor thawiui dStart: 05-09-2024 End: 91-48-0007duvkgucyth90/22/2025 8:[address] 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 Expected: 03/11/2024, Expires: 06/10/2024leveland ClinicComment on above:Expected: 03/11/2024, Expires: 06/10/2024Start: 03-11-2024 End: 67-86-0374DRJJBCT SCREEN, EXPANDEDCARRIER SCREEN, EXPANDED Lab Routine Encounter for other genetic testing of female for procreative management Expected: 03/11/2024, Expires: 06/10/2024[facility] ClinicComment on above: Expected: 03/11/2024, Expires: 06/10/2024Start: 03-11-2024 End: 99-19-4548Vvzhjbvhu trachomatis+Neisseria gonorrhoeae DNA [Presence] in Unspecified specimen by AC with probe detectionGONORRHEA/CHLAMYDIA NAAT Lab Routine Special screening examination for infectious diseases Expected: 03/11/2024, Expires: 06/10/2024[facility] ClinicComment on above:Expected: 03/11/2024, Expires: 06/10/2024Start: 03-11-2024 End: 82-29-1714Zkkajyvhfcxwsdd IgG Ab [Units/volume] in Serum or PlasmaCMV IGG ANTIBODY BL Lab Routine Special screening examination for infectious diseases Expected: 03/11/2024, Expires: 06/10/2024[facility] ClinicComment on above: Expected: 03/11/2024, Expires: 06/10/2024Start: 03-11-2024 End: 68-60-1882Zcebbfmkvhricfu IgM Ab [Units/volume] in Serum or PlasmaCMV IGM AB Lab Routine Special screening examination for infectious diseases Expected: 03/11/2024, Expires: 06/10/2024[facility] ClinicComment on above:Expected: 03/11/2024, Expires: 06/10/2024Start: 03-11-2024 End: 73-23-3990Nhdcfdikyw A1c in BloodHEMOGLOBIN A1C Lab Routine Reproductive mgmt, 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 Expected: 03/11/2024, Expires: 06/10/2024 [facility]Comment [facility]:Expected: 03/11/2024, Expires: 06/10/2024Start: 03-11-2024 End: 15-35-7911Mjnxbkika B virus core Ab [Presence] in SerumHEPATITIS B CORE ANTIBODY TOTAL Lab Routine Special screening examination for infectious diseases Expected: 03/11/2024, Expires: 06/10/2024[facility] ClinicComment on above: Expected: 03/11/2024, Expires: 06/10/2024Start: 03-11-2024 End: 98-49-1443Jndlvljpj B virus surface Ag [Presence] in SerumHEPATITIS B SURFACE ANTIGEN Lab Routine Special screening examination for infectious diseases Expected: 03/11/2024, Expires: 06/10/2024[facility] ClinicComment on above:Expected: 03/11/2024, Expires: 06/10/2024Start: 03-11-2024 End: 47-04-7739Yjqhwjmox C virus Ab [Presence] in SerumHEPATITIS C ANTIBODY IA WITH CONFIRMATION Lab Routine Special screening examination for infectious d iseases Expected: 03/11/2024, Expires: 06/10/2024leveland ClinicComment on above:Expected: 03/11/2024, Expires: 06/10/2024Start: 03-11-2024 End: 83-52-5431YMD 1+2 Ab [Presence] in Serum or Plasma by ImmunoassayHIV 1/2 COMBO WITH REFLEX TO DIFFERENTIATION Lab Routine Special screening examination for infectious diseases Expected: 03/11/2024, Expires: 06/10/2024[facility] ClinicComment on above:Expected: 03/11/2024, Expires: 06/10/2024Start: 03-11-2024 End: 05-97-9528AVXNWZY IGG ANTIBODYRUBELLA IGG ANTIBODY Lab Routine Special screening examination for infectious diseases Expected: 03/11/2024, Expires: 06/10/2024[facility] ClinicComment on above:Expected: 03/11/2024, Expires: 06/10/2024Start: 03-11-2024 End: 84-10-6825SDBBFCNK TREPONEMAL W/REFLEXSYPHILIS TREPONEMAL W/REFLEX Lab Routine Special screening examination for infectious diseases Expected: 03/11/2024, Expires: 06/10/2024[facility] ClinicComment on above:Expected: 03/11/2024, Expires: 06/10/2024Start: 03-11-2024 End: 90-02-4056VKBV + SCREEN PRENATALTYPE + SCREEN Blood Bank Routine Reproductive mgmt, 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 Expected: 03/11/2024, Expires: 06/10/2024[facility] ClinicComment on above:Expected: 03/11/2024, Expires: 06/10/2024Start: 03-11-2024 End: 12-22-6461HEOUCPXQX ZOSTER IGGVARICELLA ZOSTER IGG Lab Routine Special screening examination for infectious diseases Expected: 03/11/2024, Expires: 06/10/2024[facility] Work Phone: Comment on above:Expected: 03/11/2024, Expires: 06/10/2024Start: 03-09-2024 End: 38-05-9645vdqlhwjxun18/22/2024 10:00 AM EST [facility] Reproductive Endocrinology Infertility [address] [place] [address] Melodie Hernandez APRN.METAL CUT OFF SAW TENDER [address] [place] [address] Donor sperm teachReproductive Endocrinology InfertilityComment on above:Donor sperm teachStart: 02-20-2024 End: 78-80-2466Lplfyrp encounter ksifiugry89/04/2024 2:50 PM EST Office Visit [facility] OB [address] [place] [id number] Les Martinez, DO [address] [place], [place] [id number] ArrivedNOMS BCP OBComment on above:ArrivedStart: 31-30-2391Ydano-19 Vaccine ( season)Covid-19 Vaccine ( season)[facility]: 99-45-6262Asgnm-19 Vaccine ( season) Covid-19 Vaccine ( season)[facility]: 46-50-0453Oqlhycwry vaccinationInfluenza Vaccine (#1)[facility] HealthcareStart: 12-07-2023 End: 22-78-3682PkhskipnpOhioHealth Arthur G.H. Bing, MD, Cancer Centertart: 44-70-0357RuazpcgnlUniversity Hospitals Geneva Medical Center CenterStart: 11-37-0917TpreebccnUniversity Hospitals Geneva Medical Center CenterStart: 65-70-7760StjuifpeyUniversity Hospitals Geneva Medical Center CenterStart: 05-65-4155QunybrzefOhioHealth Arthur G.H. Bing, MD, Cancer Centertart: 06-11-2022 End: 95-17-5244HiidxrensUniversity Hospitals Geneva Medical Center CenterStart: 41-35-4277Ylvwlnix admissionOhioHealth Arthur G.H. Bing, MD, Cancer Centertart: 05-17-6171ApvqktpraUniversity Hospitals Geneva Medical Center CenterStart: 91-10-4545RsjjuslzzOhioHealth Arthur G.H. [facility], MD, Cancer Centertart: 43-06-7639MpecakctuOhioHealth Arthur G.H. Bing, MD, Cancer Centertart: 04-98-3232Zieczjko identified in Urine by CultureUrine CultureOhioHealth Arthur G.H. Bing, MD, Cancer Centertart: 94-68-4305Fqiboznc identified in Urine by CultureUrine CultureOhioHealth Arthur G.H. Bing, MD, Cancer Centertart: 05-16-2020 End: 29-40-9955Reazoe Visit05/16/2020 Office Visit Bariatrics Rashard Olivera, [address] [facility] [address] [place] [address] Camille [facility] Invasive Bariatric SurgStart: 05-06-2020 End: 36-60-0230Jbuotsra EncounterST ORComment on above:XI LAPAROSCOPIC ROBOTIC GASTRIC BYPASS BEN-EN-Y, LIVER BIOPSY, EGD- GI UNIT SCHEDULED.Start: 05-02-2020 End: 41-04-2094OACGWCOVID- Lab Routine Pre-op testing Expected: 05/02/2020, Expires: 05/01/2021[facility] on above:Expected: 05/02/2020, Expires: 05/01/2021tart: 05-02-2020 End: 05-06-4246Mmqhfb VisitProv[facility] Invasive Bariatric SurgStart: 88-32-1924RRA QnTSH testingFayette County Memorial Hospital: 08-97-4411Lnvmwjist vaccinationFlu vaccine (#1)[facility]: 59-34-7227Opqvascpa for malignant neoplasm of cervixCleveland Clinic Lutheran Hospitaltart: 28-22-4340TKgU,Tdap and Td Vaccines (1 - Tdap)DTaP,Tdap and Td Vaccines (1 - Tdap)[facility]: 80-42-3752XPcL/Tdap/Td vaccine (1 - Tdap)DTaP/Tdap/Td vaccine (1 - Tdap)[facility]: 70-05-4183Jzpcwjtnn B Vaccine (1 of 3 - 19+ 3-dose series) Hepatitis B Vaccine (1 of 3 - 19+ 3-dose series)[facility]: 11-58-9140Kqbmuhzcw B Vaccines (1 of 3 - 19+ 3-dose series)Hepatitis B Vaccines (1 of 3 - 19+ 3-dose series)[facility]: 2014 Urine microalbumin profileDTaP,Tdap,Td Vaccine (1 - Tdap)[facility]: 62-98-5094Bgtsj BMI Follow Up PlanAdult BMI Follow Up PlanErlanger Western Carolina Hospitaltart: 47-17-3274Vxrsq BMI ScreeningAdult BMI ScreeningErlanger Western Carolina Hospitaltart: 75-52-3091Ntyxapq ScreeningAnxiety ScreeningCleveland Clinic Lutheran Hospitaltart: 00-81-0684Awbquzwlpn ScreeningDepression ScreeningCleveland Clinic Lutheran Hospitaltart: 09-31-8874Qtwplqfmt C screeningHepatitis C ScreeningCleveland Clinic Lutheran Hospitaltart: 32-47-8638RFN screeningHIV ScreeningCleveland Clinic Lutheran Hospitaltart: 64-62-7401KVR screeningHIV screenFayette County Memorial Hospital: 49-29-9103Mweettqeh vaccination Varicella Vaccines (1 of 2 - 13+ 2-dose series)[facility] Start: 66-59-1744Lakmjbqzxh ScreeningDepression ScreeningMarion Hospital Start: 78-69-6097Ivnvpub ScreeningTobacco ScreeningErlanger Western [facility] Hospitaltart: 89-28-7015VXE vaccine (1 - 2-dose series)HPV vaccine (1 - 2-dose series)[facility]: 72-36-9658PPU Vaccines (1 of 1 - Standard series)MMR Vaccines (1 of 1 - Standard series)[facility]: 08-54-5920Juumomeni vaccine (1 of 2 - 2-dose childhood series)Varicella vaccine (1 of 2 - 2-dose childhood series)[facility]: 25-07-2086Sxzvqjrqb C screeningHepatitis C [facility]: 37-86-9452TDK screening HIV ScreeningAC[facility]: 09-79-7840Kbcrg panelLipid PanelACMC Healthcare System [facility]: 40-96-2195Gucrnc Adult Physical Yearly Adult PhysicalUnSelect Medical Specialty Hospital - CincinnatiaPTT in Platelet poor plasma by Coagulation assayFirelands Regional Medical CenterBacteria identified in Genital specimen by Aerobe cultureGalion Community HospitalBacteria identified in Urine by CultureUrine culture Microbiology Routine Missed menses Ordered: 09/20/2024[facility] HealthcareComment on above:Ordered: 09/20/2024alcitriol [Mass/volume] in Serum or PlasmaGalion Community HospitalCBC W Auto Differential panel - BloodCBC and differential Lab Routine Missed menses , unspecified gestational age Ordered: 09/20/2024[facility] HealthcareComment on above:Ordered: 09/20/2024HLAMYDIA TRACHOMATIS (GENITO/STI)CHLAMYDIA TRACHOMATIS (GENITO/STI) Lab Routine Exposure to STD Ordered: 11/20/2024[facility] HealthcareComment on above:Ordered: 11/20/2024ontinuous pulse oximetryPulse oximetry, continuous Respiratory Care Routine Every 4hr until discontinued starting 05/06/2020[facility] [place], [place] on [place]:Every 4hr until discontinued starting 05/06/2020T Abdomen and Pelvis WO and W contrast IV [facility] Community HospitalCytology Cervical or vaginal smear or scraping studyPap Smear Pathology and Cytology Routine Well woman exam with routine gynecological exam Ordered: 02/20/2024[facility] Healthcare Work Phone: comment on above:Ordered: 02/20/2024Electromyography [facility] Community HospitalF5 gene mutations found [Identifier] in Blood or Tissue by Molecular genetics method NominalGalion Community Hospital Factor VIII: C assayGalion Community HospitalGlucose measurement estimated from glycated hemoglobinGalion Community HospitalHemoglobin A1c/Hemoglobin.total in [facility] CenterHemoglobin A1c/Hemoglobin.total in BloodHemoglobin A1c Lab Routine Missed menses , unspecified gestational age Ordered: 09/20/2024[facility] HealthcareComment on above: Ordered: 09/20/2024Hepatitis B virus surface Ag [Presence] in Serum or Plasma by ImmunoassayHepatitis B surface antigen Lab Routine Missed menses , unspecified gestational age Ordered: 09/20/2024[facility] HealthcareComment on above: Ordered: 09/20/2024Hepatitis C virus Ab [Presence] in Serum or Plasma by ImmunoassayHepatitis C antibody Lab Routine Missed menses , unspecified gestational age Ordered: 09/20/2024[facility] HealthcareComment on above:Ordered: 09/20/2024HIV-1/HIV-2 antigen/antibody combination immunoassayHIV-1 and HIV-2 antibodies Lab Routine Missed menses , unspecified gestational age Ordered: 09/20/2024[facility] HealthcareComment on above:Ordered: 09/20/2024INR in Platelet poor plasma by Coagulation assayGalion Community Hospital Mullerian inhibiting substance [Mass/volume] in Serum or PlasmaGalion Community HospitalNebulizer therapyHHN Treatment Respiratory Care Routine TID until discontinued starting 05/06/2020[facility] [place]Comment on above: TID until discontinued starting 05/06/2020Neisseria gonorrhoeae DNA [Presence] in Unspecified specimen by AC with probe detectionNeisseria gonorrhea DNA probe, direct Lab Routine Exposure to STD Ordered: 11/20/2024[facility] Healthcare Comment on above:Ordered: 11/20/2024Oxygen therapy [Minimum Data Set]Initiate Oxygen Therapy Protocol Respiratory Care Routine Daily until discontinued starting 05/06/2020[facility], [place]Comment on above:Daily until discontinued starting 05/06/2020atient EducationUniversity Hospitals Geneva [facility] Center Ctr Work Phone: Patient referralUniversity Hospitals Geneva Medical Center Ctr Work Phone: Reagin Ab [Presence] in Serum by RPRRPR Lab Routine Missed menses , unspecified gestational age Ordered: 09/20/2024[facility] HealthcareComment on above:Ordered: 09/20/2024Rubella antibody, IgGRubella antibody, IgG Lab Routine Missed menses , unspecified gestational age Ordered: 09/20/2024[facility] HealthcareComment on above:Ordered: 09/20/2024Spirometry panelIncentive spirometry Respiratory Care Routine Every 2hr while awake until discontinued starting 05/06/2020[facility], [place]Comment on above:Every 2hr while awake until discontinued starting 05/06/2020URESWAB(R) ADVANCED VAGINITIS PLUS, TMASURESWAB(R) ADVANCED VAGINITIS PLUS, TMA Pathology and Cytology Routine Exposure to STD Ordered: 11/20/2024[facility] Healthcare Work Phone: comment on above:Ordered: 11/20/2024Surgical Pathology Surgical Pathology Lab Routine Release Upon Ordering for 1 Occurrences starting 05/06/2020[place], [place]Comment [place]:Release Upon Ordering for 1 Occurrences starting 05/06/2020 End: 22-30-0453Suhjmtappgn [Units/volume] in Serum or PlasmaTSH Lab Routine Thyroid disease every 4 weeks for 6 Occurrences starting 11/20/2024 until 11/20/2025[facility] HealthcareComment on above:every 4 weeks for 6 Occurrences starting 11/20/2024 until 11/20/2025Thyrotropin [Units/volume] in Serum or PlasmaTSH Lab Routine TSH (thyroid-stimulating hormone deficiency) Ordered: 01/16/2025[facility] HealthcareComment on above:Ordered: 01/16/2025von Willebrand factor (vWf) Ag [Units/volume] in Platelet poor plasmaGalion Community Hospitalvon Willebrand factor (vWf) multimers in Platelet poor plasma by [facility] Hospitalvon Willebrand factor (vWf) ristocetin cofactor actual/normal in Platelet poor plasma by Platelet ag [facility] Immunizations Immunization DateImmunizationNotesCare PzzggaubFtrfmxwl56-64-2153dzqhova toxoid, reduced diphtheria toxoid, and acellular pertussis vaccine, Melvin Sinclair MD Work Phone: [facility] HospitalUslzvwrtnf70-63-2133RVPGG-71 mRNA-1273 (Moderna) MELY Ford Work Phone: [facility]04-06-2021COVID-19 mRNA-1273 (Moderna)MELY Ford Work Phone: [facility] Payers DatePayer CategoryPayerPolicy [id number]-[id number] [id number] 2023Medicaid [id number] [id number] [id number] 1.2.840.697119.1.13.239.2.7.3.114494.48947-67-8472Pepacqi [id number] 2..840.1.322721.3.579.2.82436-79-8359Ruwqlfi15808096 2..840.1.574148.3.57[id number] 2..840.1.940466.3.579.[id number] 2..840.1.187464.3.579.[id number] 2..840.1.834885.3.579.2.56760-68-0188Yunmboz680015405 2..840.1.363963.3.579.2.572111-49-8880Lqkxijr53519472 2..840.1.157673.3.579.2.[id number] 2..840.1.809463.3.579.[id number] 2.16.840.1.270075.3.579.2.66556-26-2170Fmhaiuk13277806 2.840.1.178378.3.579.2.39773-61-6489Iydgyvj53375473 2.16.840.1.692362.3.579.2.33278-92-8734Xaldrnd93537330 2..840.1.378116.3.579.2.67267-14-6892Vdsjflr36000697 2.840.1.331603.3.579.2.[id number] 2.840.1.273253.3.579.2.6[id number] 2.0.1.778742.3.579.2.703242-23-0713Utwbwjl671338675 2.840.1.842673.3.579.2.844730-37-3884Yefezrx601102251 2..1.882828.3.579.2.663182-13-2457Vnxkkqr30477438 2.0.1.405594.3.579.2.527103-29-7821Xvwzbyk49009484 2..1.256474.3.579.2.759573-23-6625Gzcbdxm57602997 2..1.128503.3.579.2.911923-51-8509Rffvzsw29700422 2.0.1.456719.3.579.2.987980-70-0802Kfpxuag68207752 2..1.199621.3.579.2.854485-57-8308Hlakxxt43052980 2.840.1.892235.3.579.2.401423-52-7316Zdshtah10361285 2.0.1.466255.3.579.2.944556-40-0626Mkzsugx28027901 2.840.1.339084.3.579.2.106627-69-9347Eezmxoh35591469 2.0.1.308652.3.579.2.137076-78-1478Qnronqs31526296 2.16.840.1.029061.3.579.2.906214-77-1876Rvaxgaw6599775 2.16.840.1.355079.3.579.2.1259Prgrenvillete [facility] Health Claims [id number] 2.16.840.1.641715.64Ryfuzmc21493503 2.16.840.1.432395.3.579.2.474Ffpbklv57847944 2.16.840.1.569114.3.579.2.845Ywmbvnx64143611 2.16.840.1.017416.3.579.2.531 Social History DateTypeDetailFacilityStart: 04-22-2020 End: 77-72-1835Pfkiywi smoking status NHISNever smokerFayette County Memorial Hospital: 04-22-2020 End: 32-55-5040[place] use and exposureNever usedFayette County Memorial Hospital: 04-22-2020 End: 72-29-6695Bzzhzrb intakeCurrent non-drinker of alcohol (finding)[facility]: 69-40-5667Myx Assigned At BirthNot on [place], [place]Exposure to SARS-CoV-2 (event)Not sureFayette County Memorial Hospital: 01-17-2023 Tobacco smoking statusNeverCleveland Clinic Medina Hospital CenterStart: 11-28-2023 End: 90-20-3378Bvu Assigned At [facility]FeH[facility] Other Start: 85-43-6669Ifs Assigned At [facility] PinevilleFeGeorgetown Behavioral Hospitaltart: 07-80-6905Qcslyrs smoking status NHISCurrent some day smokerOhioHealth Arthur G.H. Bing, MD, Cancer Centertart: 04-18-2023 End: 00-79-5177Zfiqfsk smoking status NHISSmoker (finding)[facility]ertart: 11-28-2023 End: 11-05-1718Zsoflgp smoking status NHISSmokes tobacco dailyNOMS Healthcare Start: 78-94-1942Nhvykcn of tobacco useCigarette SmokerNOMS HealthcareStart: 11-28-2023 End: 53-91-6785Bmlrvduhpg smoked current (pack per day) - Reported0.5NOMS HealthcareStart: 11-28-2023 End: 67-80-4088Xdfznmvgg beverage intakeEx-drinker (finding)[facility] Start: 21-16-0139Yxveirj Commentcaffeine: 1-2 cups per day teaNOMS Healthcare Start: [id number] identityIdentifies as female gender (finding)[facility] HealthcareStart: 11-21-2014 End: 08-94-8437KbtQfxqgo (finding)[facility] HospitalTobacco smoking status NHISTobacco smoking consumption unknownCoatsburg ClinicStart: 31-56-0340SvobblzfmNjvcciktiOhioHealth Arthur G.H. Bing, MD, Cancer Centertart: 10-18-2024 End: 28-33-9391Wgwfxes smoking status NHISEx-smoker (finding)[facility] HospitalNEGATED: Highlighted rowRegency Hospital [facility] Equipment Procedure CodeEquipment CodeEquipment Original TextEquipment IdentifierDates Functional endoscopic sinus surgery (FESS) with sinuplastyBUTTON NASAL SEPTAL 3CMFDAStart: 08-72-0925Lmajztosqs endoscopic sinus surgery (FESS) with sinuplastyBUTTON NASAL SEPTAL 3CMFDAStart: 64-40-1204Foaccerjtk endoscopic sinus surgery (FESS) with sinuplastyBUTTON NASAL SEPTAL 3CMFDAStart: 10-15-2019 Functional endoscopic sinus surgery (FESS) with sinuplastyBUTTON NASAL SEPTAL 3CMFDAStart: 15-47-6285Vmwxqdtvvw endoscopic sinus surgery (FESS) with sinuplastyBUTTON NASAL SEPTAL 3CMFDAStart: 70-65-0106Njhkjljihn endoscopic sinus surgery (FESS) with sinuplastyBUTTON NASAL SEPTAL 3CMFDAStart: 10-15-2019 Functional endoscopic sinus surgery (FESS) with sinuplastyBUTTON NASAL SEPTAL 3CMFDAStart: 62-07-7760Lccemyfwxw endoscopic sinus surgery (FESS) with sinuplastyBUTTON NASAL SEPTAL 3CMFDAStart: 86-38-5693Gqkmgmruoa endoscopic sinus surgery (FESS) with sinuplastyBUTTON NASAL SEPTAL 3CMFDAStart: 10-15-2019 Functional endoscopic sinus surgery (FESS) with sinuplastyBUTTON NASAL SEPTAL 3CMFDAStart: 94-59-7024Nqcaetgudz endoscopic sinus surgery (FESS) with sinuplastyBUTTON NASAL SEPTAL 3CMFDAStart: 43-77-0394Rblpllqsvl endoscopic sinus surgery (FESS) with sinuplastyBUTTON NASAL SEPTAL 3CMFDAStart: 10-15-2019 Functional endoscopic sinus surgery (FESS) with sinuplastyBUTTON NASAL SEPTAL 3CMFDAStart: 81-71-4133Ribzcgzluy endoscopic sinus surgery (FESS) with sinuplastyBUTTON NASAL SEPTAL 3CMFDAStart: 88-65-3407Owaeculctj endoscopic sinus surgery (FESS) with sinuplastyBUTTON NASAL SEPTAL 3CMFDAStart: 10-15-2019 Functional endoscopic sinus surgery (FESS) with sinuplastyBUTTON NASAL SEPTAL 3CMFDAStart: 36-60-8030Ksqnysguvj endoscopic sinus surgery (FESS) with sinuplastyBUTTON NASAL SEPTAL 3CMFDAStart: 14-47-8284Pkxrmsxzgr endoscopic sinus surgery (FESS) with sinuplastyBUTTON NASAL SEPTAL 3CMFDAStart: 10-15-2019 Functional endoscopic sinus surgery (FESS) with sinuplastyBUTTON NASAL SEPTAL 3CMFDAStart: 07-20-2615Nqhkljwrot endoscopic sinus surgery (FESS) with sinuplastyBUTTON NASAL SEPTAL 3CMFDAStart: 83-51-8542Sjqmlpquqo endoscopic sinus surgery (FESS) with sinuplastyBUTTON NASAL SEPTAL 3CMFDAStart: 10-15-2019 Functional endoscopic sinus surgery (FESS) with sinuplastyBUTTON NASAL SEPTAL 3CMFDAStart: 48-58-9838Jtvljn/ligament bone anchor, non-bioabsorbable ()[id number] FDAStart: 12-41-0664Ldadnj/ligament bone anchor, non-bioabsorbable()[id number] FDA Start: 37-47-1135Qtrxjc/ligament bone anchor, non-bioabsorbable ()[id number] FDAStart: 56-01-8815Xmztxs/ligament bone anchor, non-bioabsorbable()[id number] FDAStart: 12-07-2023 Goals DatePatient GoalDesired Activity/StatePersonal health goal Functional Status WsvxBqfdxtbqwwPdkszgHbckupbt36-66-3378Mfepxjqlsp statusPatient at [facility] Work Phone: [phone]mpofmxs statusPatient at [facility] Work Phone: Mental Status TdmuBlbuvklzviRcygfiIlblsafd55-23-2026Upjvqdwyj functionCognitive Status Patient at [facility] Work Phone: 1(391) 228-929002-202219-83-2187Wlekmjbyr functionCognitive Status Patient at [facility] Work Phone: Clinical Notes 07-16-2021 to 02-19-2025 Note Date & ThvmAgiqKbhmftgv29-83-9358 History of Present illness Narrative* Alana Valverde, [...] nursing note reviewed. Exam conducted with a vertica architect present. Vitals: Estimated body mass index is 40.03 kg/m as calculated from the following: Height as of 08/22/24: 5' 11 . Weight as of this encounter: 287 lb. BP: 128/76 No LMP recorded. Patient is . Assessment/Plan ICD-10-CM 1. Third trimester ([facility]) Z34.93 POCT urinalysis dipstick manually resulted 2. 31 weeks gestation of ([facility]) Z3A.31 3. TSH (thyroid-stimulating hormone [...] of: Les Martinez DO documented in this encounterReynolds County General Memorial HospitalVrtqeojtcx90-20-0613 History of Present illness Narrative* MELVI Engle [...] 1. Third trimester ([facility]) Z34.93 2. 29 weeks gestation of ([facility]) Z3A.29 POCT urinalysis dipstick manually [...] behalf of: MELVI Engle documented in this encounterReynolds County General Memorial HospitalWaihiwbfje36-55-5700 History of Present illness Narrative* Mima Duenas [...] nursing note reviewed. Exam conducted with a vertica architect present. Vitals: Estimated body mass index is 38.49 kg/m as calculated from the following: Height as of 08/22/24: 5' 11 . Weight as of this encounter: 276 lb. BP: 122/80 No LMP recorded. Patient is . ASSESSMENT & PLAN ICD-10-CM 1. 26 weeks gestation of ([facility]) Z3A.26 POCT urinalysis dipstick manually resulted 2. Second trimester ([facility]) Z34.92 3. TSH (thyroid-stimulating hormone [...] of: Mima Duenas NP documented in this encounterReynolds County General Memorial HospitalTnoryaczhu94-17-9285 Miscellaneous Notes* Telephone Encounter - Roslyn Griffin RN - 01/03/2025 3:44 PM EDT Called patient to schedule her follow up survey in 4-6 weeks per appointment tracker. No answer left message to call back to schedule the follow up ultrasound. documented in this encounterMarion Hospital09-18-2025 Telephone encounter Note* Telephone Encounter - Roslyn Griffin RN - 01/03/2025 3:44 PM EDT Called patient to schedule her follow up survey in 4-6 weeks per appointment tracker. No answer left message to call back to schedule the follow up ultrasound. [facility]09-03-[facility] History of Present illness Narrative* MELVI [...] PLAN ICD-10-CM 1. 22 weeks gestation of ([facility]) Z3A.22 POCT urinalysis dipstick manually resulted 2. Second trimester ([facility]) Z34.92 POCT urinalysis dipstick manually resulted [...] behalf of: MELVI Engle documented in this encounterReynolds County General Memorial HospitalMrucpljmez88-06-4209 History of Present illness Narrative* Enrike Lindquist [...] follows with the behavioral health up in [place] History of migraines. Has been getting some [...] Pee's thyroiditis Hx of iron deficiency anemia [place] product of in vitro fertilization (IVF) Ovarian [...] mouth in the morning., Disp: , Rfl: iz111-pwfc-fblzc acid ( 19) 29 mg iron- 1 [...] Calcium: recommend 1000-1200mg daily; if deficient, recommend 4600-1808 mg PO daily in divided doses Vitamin [...] 5. 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 The statistical analyst should be made awareat the time of [...] Enrike Lindquist MD, FACOG (she/hers) [facility] [address] [place] [address] This document was created with [employer] technology. Though I make every effort to review the dictation as it is transcribed, on occasion the spoken word can be misinterpreted by the technology leading to inappropriate words, phrases, or sentences. This note is addressed to the requesting provider as a consultation for clinical guidance. Specificmedical abbreviations are occasionally used and those are generally approved by the [place]?Board of?Obstetrics and?Gynecology?as well as?Marilee s abbreviations. The above plan of care was based solely on the diagnoses for which a consultation was requested. ?More frequent testing may be indicated based on her other medical/obstetrical conditions. The management of other or medical conditions is beyond the scope of requested consultation and will c ontinue to be followed by the primary radio producer or primary care provider. Note to patient: [...] CF Have you been seen here at [facility] in a previous ? NA Recent ER visits or hospitalizations? See notes above Bring blood sugar log or meter with you today? (Please bring them with you for every visit at [facility]) NA Flu vaccine (Feb-June)? NA Any concerns that you would like me to mention to the provider today? Questions about glucose testing and her having gastric bypass surgery documented in this encounterMarion Hospital08-05-2025 History of Present illness Narrative* Alana [...] nursing note reviewed. Exam conducted with a vertica architect present. Vitals: Estimated body mass index is [...] gonorrhea DNA probe, direct 3. Second trimester ([facility]) Z34.92 POCT urinalysis dipstick manually resulted 4. 18 weeks gestation of ([facility]) Z3A.18 5. Need for maternal serum alpha-protein (MSAFP) screening ([facility]) Z36.1 Alpha fetoprotein, maternal Alpha fetoprotein, maternal 6. Screening, , for anatomic survey ([facility]) Z36.89 US OB 14+ weeks [...] of: Les Martinez DO documented in this encounterReynolds County General Memorial HospitalQoxvozfvan07-16-2579 History of Present illness Narrative* Mima Duenas [...] nursing note reviewed. Exam conducted with a vertica architect present. Vitals: Estimated body mass index is 31.24 kg/m as calculated from the following: Height as of 08/22/24: 5' 11 . Weight as of this encounter: 224 lb. BP: 110/62 No LMP recorded. Patient is . ASSESSMENT & PLAN ICD-10-CM 1. 13 weeks gestation of ([facility]) Z3A.13 POCT urinalysis dipstick manually resulted 2. Second trimester ([facility]) Z34.92 POCT urinalysis dipstick manually resulted 3. Thyroid disease E07.9 4. H/O gastric sleeve Z90.3 5. H/O iron deficiency anemia Z86.2 6. resulting from in vitro fertilization in first trimester ([facility]) O09.811 Return OB: Patient presents [...] of: Les Martinez DO documented in this encounterReynolds County General Memorial HospitalNilpohsyno50-60-6760 Radiology Diagnostic study [facility] [place] [address] [place] [address] Ultrasound Report Signed Patient: Jaz Sanders MR#: [id number] : 1995 Acct:[id number] Age/Sex: 29 / F ADM Date: 5 Loc: ER Room: Type: [facility] ER Attending Dr: Ordering Provider: [...] Jr., D.ORenae 10/18/2024 2:21 PM Dictation Location: [place] [address] Tech: Natalie Raissa Transcribed By: MAITE 10/18/24 1421 Dictated By: Sravan Dickinson Jr, DO 10/18/24 1419 Signed By: 10/18/24 1421 [facility]06-05-2025 History of Present illness Narrative * [...] screen, urine; Future Nurse Note: Patient declined [place] at this time. Patient is an IVF from [facility]. OB Intake: Patient presents today for first OB visit. Patients history has been reviewed in great detail including any potential risks. Patient signed consent forms and patient desires testing in both trimesters. Patient currently has no complaints and has been advised to drink 6-8 glasses of water a day, eatno raw or undercooked meat, and stay away from [facility]. Patient has also been advised to [...] by: Marsha Asif MA documented in this encounterReynolds County General Memorial HospitalYgdzlohhdq57-70-0251 NoteHNO ID: [id number] Author: MELODIE HERNANDEZ APRN.METAL CUT OFF SAW TENDER Service: ? Author Type: Nurse Practitioner Type: [...] 3. Cycle Day: Last menstrual period: 07/19/2024 [place] Protocol: UNIVERSAL PROTOCOL / SAFETY CHECKLIST Procedure [...] Sanders DATE: September 05, 2024 TIME: 10:45 [facility]05-19-2025 History of Present illness Narrative* Manisha [...] 03, 2024 5:39 PM documented in this encounterCleveland Clinic [facility]05-19-2025 NoteHNO ID: [id number] Author: MANISHA WEAVER APRN.CNP Service: ? Author [...] Plan Move on to OB Manisha Weaver APRN.METAL CUT OFF SAW TENDER September 03, 2024 5:39 [facility]05-15-2025 NoteHNO ID: [id number] Author: MIKEY TORRES MD Service: ? Author Type: Physician Type: Progress Notes Filed: 08/30/2024 16:36 Note Text: Viable ratliff IUP Size equal Date. Plan: patient to follow up with her ob for care. Stacy Banuelos [facility]05-15-2025 History of Present illness Narrative* Mikey [...] Plan: repeat scan next week as scheduled eMlodie Hernandez APRN.JARROD documented in this encounterCleveland Clinic [facility]05-13-2025 NoteHNO ID: [id number] Author: MELODIE HERNANDEZ APRN.CNP Service: ? Author [...] scan next week as scheduled Melodie Hernandez APRN.CNPPremier Health Miami [facility]05-09-2025 Telephone encounter Note* Telephone Encounter - Melodie [...] open slot. Call to patient needed: no [facility]05-09-2025 Miscellaneous Notes* Telephone Encounter - Melodie [...] schedule the patient for the following- Location: [facility] Provider: nurse Visit type: scan Reason for visit/appointment notes: scan Date: 08/28 Time (requested): 1110 If slot is full, please schedule the closest open slot. Call to patient needed: no * Telephone Encounter - Angella Mccarthy - 08/23/2024 10:37 AM EDT Name: Jaz Sanders called today. : 1995 (home) [phone] (cell) Reason for call: pt called today informing the nurse she has been experiencing pain of level 4 from1-10. Pt has been experiencing pain for 2 day. 5 weeks today. The patients preferred pharmacy has been captured for this encounter? Angella Morillo [employer] documented in this encounterCleveland Clinic [facility] Hospital05-09-2025 Telephone encounter Note * Telephone Encounter - Arminda Ward RN - 08/24/2024 1:58 PM EDT See 08/23/24 LIBBY Ward RN August 24, 2024 1:58 PM [facility]05-09-2025 Miscellaneous Notes* Telephone Encounter - Arminda Ward RN - 08/24/2024 1:58 PM EDT See 08/23/24 LIBBY Ward RN August 24, 2024 1:58 PM * Telephone Encounter - Manisha Ding - 08/24/2024 11:52 AM EDT Pt would like a call back documented in this encounterCleveland Clinic [facility] Hospital05-09-2025 Telephone encounter Note * Telephone Encounter - Manisha Ding - 08/24/2024 11:52 AM EDT Pt would like a call back [facility]05-08-2025 Telephone encounter Note* Telephone Encounter - Angella Mccarthy - 08/23/2024 10:37 AM EDT Name: Jaz Sanders called today. : 1995 (home) [phone] (cell) Reason for call: pt called today informing the nurse she has been experiencing pain of level 4 from1-10. Pt has been experiencing pain for 2 day. 5 weeks today. The patients preferred pharmacy has been captured for this encounter? Angella Morillo [employer] Processing Laborer [facility]05-08-2025 Telephone encounter Note* Telephone Encounter - Arminda Ward RN - 08/23/2024 8:53 AM EDT See 08/20 Distance health visit Arminda Ward RN August 23, 2024 8:53 AM [facility]05-08-2025 Miscellaneous Notes* Telephone Encounter - Arminda Ward RN - 08/23/2024 8:53 AM EDT See 08/20 Distance health visit Arminda Ward RN August 23, 2024 8:53 AM documented in this encounterCleveland Clinic [facility]05-07-2025 History of Present illness Narrative* Darleen [...] levothyroxine 50 mcg daily, administered in the speech therapist early intervention on an empty stomach. There have been [...] 1 year (around 08/22/2025). documented in this encounterReynolds County General Memorial HospitalBbsqghlbrq08-20-2511 NoteHNO ID: [id number] Author: MELODIE HERNANDEZ APRN.METAL CUT OFF SAW TENDER Service: ? Author Type: Nurse Practitioner Type: [...] visit. Either the patient or their legal customer solutions representative has been informed of the risks [...] providers Schedule with OB: 09/13 Melodie Hernandez APRN.METAL CUT OFF SAW TENDER August 20, 2024 8:33 AM Please schedule the patient for the following- Location: [place] Provider: nurse Visit type: Reason for visit/appointment notes: scan Date: 09/03 Time (requested): 1040 If slot is full, please schedule the closest open slot. Call to patient needed: no I spent a total of 30 minutes on the date of the service which included preparing to see the patient, abnp-cq-qgiz patient care, completing clinical documentation, obtaining and/or [...] be grammatical and typographical errors missed in proofreading.[facility]05-05-2025 History of Present illness Narrative* Melodie Hernandez [...] visit. Either the patient or their legal customer solutions representative has been informed of the risks [...] schedule the patient for the following- Location: [place] Provider: nurse Visit type: Reason for visit/appointment notes: scan Date: 09/03 Time (requested): 1040 If slot is full, please schedule the closest open slot. Call to patient needed: no I spent a total of 30 minutes on the date of the service which included preparing to see the patient, hyhf-vk-cylu patient care, completing clinical documentation, obtaining and/or [...] errors missed in proofreading. documented in this encounterC[facility] Clinic [facility]05-01-2025 Telephone encounter Note * Telephone Encounter - Daniel Hanna APRN.CNP - 08/16/2024 5:15 PM EDT Called patient back to phone number listed in Envysion-no answer. Lm for patient to look out for Mychart message. Dainel Hanna APRN.CNP August 16, 2024 5:15 PM [facility]05-01-2025 Miscellaneous Notes* Telephone Encounter - Daniel Hanna APRN.CNP - 08/16/2024 5:15 PM EDT Called patient back to phone number listed in Env[employer]ion-no answer. Lm for patient to look out for Mychart message. Daniel Hanna APRN.CNP August 16, 2024 5:15 PM * Telephone Encounter - Angella Mccarthy - 08/16/2024 12:29 PM EDT Name: Jaz Sanders called today. : 1995 (home) [phone] (cell) Reason for call: pt called that she got positive test, she has been having having cramping since last night , it happens every hours for couple minutes. The patients preferred pharmacy has been captured for this encounter? yes Angella Morillo Chemical Processing Laborer documented in this encounterC[facility] Clinic [facility] Hospital05-01-2025 Telephone encounter Note * Telephone Encounter - Angella Mccarthy - 08/16/2024 12:29 PM EDT Name: Jaz Sanders called today. : 1995 (home) [phone] (cell) Reason for call: pt called that she got positive test, she has been having having cramping since last night , it happens every hours for couple minutes. The patients preferred pharmacy has been captured for this encounter? yes Angella Morillo Chemical Processing Laborer [facility]04-30-2025 Telephone encounter Note* Telephone Encounter - Manisha Ding - 08/15/2024 2:10 PM EDT Pt is preg and wants to know if she can take benadryl due to her having hives [facility]04-30-2025 Miscellaneous Notes* Telephone Encounter - Manisha Ding - 08/15/2024 2:10 PM EDT Pt is preg and wants to know if she can take benadryl due to her having hives documented in this encounterCleveland Clinic Mercy Hospital04-15-2025 NoteHNO ID: [id number] Author: DOMINGUEZ BARRY, ? Service: ? Author Type: Sanitation Engineer Type: Progress Notes Filed: 09/05/2024 22:45 Note Text: IUI Cryobio Donor # [id number] Pre: frozen washed specimen Post: 82 M/ml, 67% Insem # 27.5 millionPremier Health Miami Valley Hospital South04-15-2025 NoteHNO ID: [id number] Author: DOMINGUEZ BARRY, ? Service: ? Author Type: Sanitation Engineer Type: Progress Notes Filed: 07/31/2024 15:26 Note Text: Thaw for IUI. [facility] CruzSt[facility]04-[facility]-20[facility] History of Present illness Narrative* Dominguez Barry - 07/31/2024 3:25 PM EDT Thaw for IUI. Dominguez Barry documented in this encounterCleveland Clinic [facility] Hospital04-15-2025 NoteHNO ID: [id number] Author: DOMINGUEZ BARRY, ? Service: ? Author Type: Sanitation Engineer Type: Progress Notes Filed: 09/05/2024 22:45 Note Text: IUI specimen released to provider Dominguez Barry July 31, 2024 3:24 [facility]04-15-2025 NoteHNO ID: [id number] Author: MUSTAPHA TELLO MA Service: ? Author Type: Creative Services Director Type: Progress Notes Filed: 07/31/2024 15:12 Note Text: Patient verified by full name and date of . Jaz Sanders is here today for an IUI. LMP: 07/19/2024 Natural cycle IUI Timed With: Ovulation Predictor Kit , Date: 07/30/2024 Classroom Coordinator offered: Patient declines Mustapha Tello MA July 31, 2024 3:12 [facility]04-14-2025 Telephone encounter Note* Telephone Encounter - Melodie Hernandez APRN.CNP - 07/30/2024 5:58 PM EDT patient's OPK today was dark but not positive Plan: test again tomorrow. 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, schedule IUI the same day Melodie Hernandez APRN.CNP July 30, 2024 6:00 PM [facility]04-14-2025 Miscellaneous Notes* Telephone Encounter - Melodie Hernandez APRN.CNP - 07/30/2024 5:58 PM EDT patient's OPK today was dark but not positive Plan: test again tomorrow. 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, schedule IUI the same day Melodie Hernandez APRN.CNP July 30, 2024 6:00 PM * Telephone Encounter - Manisha Ding - 07/30/2024 3:15 PM EDT N- ivf Pt has questions regarding IUI documented in this encounterCleveland Clinic [facility] Hospital04-14-2025 Telephone encounter Note * Telephone Encounter - Manisha Ding - 07/30/2024 3:15 PM EDT N- ivf Pt has questions regarding IUI [facility]03-23-2025 NoteHNO ID: [id number] Author: NICHELLE GONZALEZ, ? Service: ? Author Type: Sanitation Engineer Type: Progress Notes Filed: 07/19/2024 07:50 Note Text: IUI Cryobio #[id number] Washed frozen specimen Post: 31 m/ml, 77% Insem#: 10.8 millionPremier Health Miami [facility]03-23-2025 History of Present illness Narrative* Nichelle Gonzalez E - 07/08/2024 8:07 AM EDT IUI Cryobio #[id number] Washed frozen specimen Post: 31 m/ml, 77% Insem#: 10.8 million * Nichelle Gonzalez - 07/07/2024 10:10 AM EDT IUI specimen released to provider Nichelle Gonzalez July 07, 2024 10:10 AM documented in this encounterCleveland Clinic Mer[facility] Hospital03-22-2025 NoteHNO ID: [id number] Author: NICHELLE GONZALEZ, ? Service: ? Author Type: Sanitation Engineer Type: Progress Notes Filed: 07/19/2024 07:50 Note Text: IUI specimen released to provider Nichelle Gonzalez July 07, 2024 10:10 [facility]03-22-2025 NoteHNO ID: [id number] Author: MIKEY TORRES MD Service: ? Author [...] Cycle Day: 14 Last menstrual period: 06/24/2024 [place] Protocol: UNIVERSAL PROTOCOL / SAFETY CHECKLIST Procedure [...] the primary surgeon/proceduralist with assistance. Stacy Banuelos, [facility]03-22-2025 Procedure note* Mikey Torres MD - [...] Cycle Day: 14 Last menstrual period: 06/24/2024 [place] Protocol: UNIVERSAL PROTOCOL / SAFETY CHECKLIST Procedure [...] primary surgeon/proceduralist with assistance. Stacy Banuelos MD [facility]03-22-2025 Procedure note* Mikey Torres MD - [...] Cycle Day: 14 Last menstrual period: 06/24/2024 [place] Protocol: UNIVERSAL PROTOCOL / SAFETY CHECKLIST Procedure [...] assistance. Stacy Banuelos MD documented in this encounterCleveland Clinic [facility] Hospital03-22-2025 NoteHNO ID: [id number] Author: NICHELLE GONZALEZ, ? Service: ? Author Type: Sanitation Engineer Type: Progress Notes Filed: 07/07/2024 09:41 Note Text: Thaw for IUI Nichelle GonzalezPremier Health [facility]03-22-2025 History of Present illness Narrative* Nichelle Gonzalez - 07/07/2024 9:41 AM EDT Thaw for IUI Nichelle Gonzalez documented in this encounterC[facility] Telephone encounter Note * Telephone Encounter [...] Isaacs PA-C July 06, 2024 3:26 PM [facility]03-21-[facility] Miscellaneous Notes* Telephone Encounter - Becki [...] iui tomorrow. Pleasecall patient. documented in this encounterCleveland Clinic [facility]03-21-2025 Telephone encounter Note * Telephone Encounter - Sivan Roberto - 07/06/2024 2:39 PM EDT Patient states she is calling back unsure about if she is okay to proceed with iui tomorrow. Pleasecall patient. [facility]03-[facility] Telephone encounter Note* Telephone Encounter - Arminda Ward RN - 07/06/2024 11:17 AM EDT See other TE for 07/04 Arminda Ward RN July 06, 2024 11:17 AM [facility]03-[facility] Miscellaneous Notes* Telephone Encounter - Arminda [...] to be removed first. documented in this encounterC[facility] Clinic [facility]03-20-2025 Telephone encounter Note * Telephone Encounter - Sivan Roberto - 07/05/2024 3:02 PM EDT On day 11 now, inquiring about if okay to proceed with iui with cervical polyp. Patient believes itwill be tomorrow or Tuesday for iui- inquiring if polyp needs to be removed first. [facility] Telephone encounter Note* Telephone Encounter - [...] Hernandez APRN.CNP July 04, 2024 7:30 PM [facility] Miscellaneous Notes* Telephone Encounter - Melodie [...] 04, 2024 7:30 PM documented in this encounterCleveland Clinic [facility]03-19-2025 NoteHNO ID: [id number] Author: IGNACIO GUY MD Service: ? Author Type: Physician Type: Progress Notes Filed: 07/04/2024 16:27 Note Text: [facility] History of Present illness Narrative* Ignacio Guy MD - 07/04/2024 4:27 PM EDT 1 documented in this encounterCleveland Clinic [facility]02-22-2025 NoteHNO ID: [id number] Author: IGNACIO GUY MD Service: ? Author [...] Cycle Day: 13 Last menstrual period: 05/28/2024 [place] Protocol: UNIVERSAL PROTOCOL / SAFETY CHECKLIST Procedure [...] was discussed with the patient or authorized customer solutions representative. The patient or authorized customer solutions representative has agreed to proceed with the sensitive examination. (Sensitive examination includes inspection and/or palpation of the breasts, pelvis, prostate and anorectal regions) Patient declined vertica architect. Vidhi Sheldon MD IUI IUI Date: 06/09/24 [...] stopped. Will get pelivc scan here at [facility] if not with this IUI prior pt proceeding with another attmept at IUI. Ignacio Guy MD June 09, 2024 12:30 PM SIGNATURE: Vidhi Sheldon MD PATIENT NAME: Jaz Sanders DATE: June 09, 2024 TIME: 12:01 [facility]02-22-2025 Procedure note* Vidhi Sheldon MD - [...] Cycle Day: 13 Last menstrual period: 05/28/2024 [place] Protocol: UNIVERSAL PROTOCOL / SAFETY CHECKLIST Procedure [...] was discussed with the patient or authorized customer solutions representative. The patient or authorized customer solutions representative has agreed to proceed with the sensitive examination. (Sensitive examination includes inspection and/or palpation of the breasts, pelvis, prostate and anorectal regions) Patient declined vertica architect. Vidhi Sheldon MD IUI IUI Date: 06/09/24 [...] stopped. Will get pelivc scan here at [facility] if not with this IUI prior pt proceeding with another attmept at IUI. Ignacio Guy MD June 09, 2024 12:30 PM SIGNATURE: Vidhi Sheldon MD PATIENT NAME: Jaz Sanders DATE: June 09, 2024 TIME: 12:01 PM [facility] Work Phone: 1(370) 662-501002-22-2025 Procedure note* Vidhi Sheldon MD - 06/09/2024 [...] Cycle Day: 13 Last menstrual period: 05/28/2024 [place] Protocol: UNIVERSAL PROTOCOL / SAFETY CHECKLIST Procedure [...] was discussed with the patient or authorized customer solutions representative. The patient or authorized customer solutions representative has agreed to proceed with the sensitive examination. (Sensitive examination includes inspection and/or palpation of the breasts, pelvis, prostate and anorectal regions) Patient declined vertica architect. Vidhi Sheldon MD IUI IUI Date: 06/09/24 [...] stopped. Will get pelivc scan here at [facility] if not with this IUI prior pt proceeding with another attmept at IUI. Ignacio Guy MD June 09, 2024 12:30 PM SIGNATURE: Vidhi Sheldon MD PATIENT NAME: Jaz Sanders DATE: June 09, 2024 TIME: 12:01 PM documented in this encounterCleveland Clinic [facility] Hospital02-22-2025 NoteHNO ID: [id number] Author: NICHELLE GONZALEZ, ? Service: ? Author Type: Sanitation Engineer Type: Progress Notes Filed: 06/09/2024 12:30 Note Text: IUI [facility] #: [id number] Washed frozen sample Post: 42 m/ml, 74% Insem#: 15.5 millionPremier Health [facility]02-22-[facility] History of Present illness Narrative* Nichelle Gonzalez - 06/09/2024 11:52 AM EST IUI Cryobio #: [id number] Washed frozen sample Post: 42 m/ml, 74% Insem#: 15.5 million * Nichelle Gonzalez - 06/09/2024 11:24 AM EST IUI specimen released to provider Nichelle Gonzalez June 09, 2024 11:24 AM documented in this encounterCleveland Clinic [facility]02-22-2025 NoteHNO ID: [id number] Author: NICHELLE GONZALEZ, ? Service: ? Author Type: Sanitation Engineer Type: Progress Notes Filed: 06/09/2024 11:48 Note Text: Thaw for IUI Nichelle E PaulyPremier Health Miami [facility]02-22-2025 History of Present illness Narrative* Nichelle Gonzalez - 06/09/2024 11:47 AM EST Thaw for IUI Nichelle Colt Larrykimberly documented in this encounterCleveland Clinic [facility] Hospital02-22-2025 NoteHNO ID: [id number] Author: NICHELLE GONZALEZ, ? Service: ? Author Type: Sanitation Engineer Type: Progress Notes Filed: 06/09/2024 12:30 Note Text: IUI specimen released to provider Nichelle Gonzalez June 09, 2024 11:24 [facility]01-22-2025 Instructions* Patient Instructions* Melodie Hernandez APRN.METAL CUT OFF SAW TENDER - 05/09/2024 9:08 AM EST Images from [...] more than one and store with the [facility]. Mailing address: Attention: Nichelle Gonzalez [address] [place] [address], [place] [address] Storage at the [facility] is available. Fees are yearly and only start once you are not actively trying. Please ask the financial team ([phone]) for current cost information. Donor Insemination Scheduling [...] please call the [place] [address] Available every day, including weekends and holidays (except [place] and New Years.) Weekday IUI scheduling The day you get your LH surge, please call [phone] between 8:00am - 12:00pm to schedule your insemination for the next day. If you call after 12pm, we may not be able to schedule your appointment. IUI s are done by appointment only. You will make 2 appointments -an arrival time and a procedure time. [place]: [address] [place] [address], [address] [place] [address] Available every day, including weekends and holidays (except [place] and New Years.) Available for IUI using fresh and frozen samples. Check in location for sperm wash and IUI: [address] [facility]. The sperm wash takes 60-90 minutes. [...] confirm your treatment plan. Important phone number: [phone] documented in this encounterCleveland Clinic [facility] Hospital01-22-2025 NoteHNO ID: [id number] Author: MELODIE HERNANDEZ APRN.CNP Service: ? Author [...] visit. Either the patient or their legal customer solutions representative has been informed of the risks [...] negative donor is a carrier of: CFTR, FHZ400 Vial types available: IUI and ART Considerations [...] which included preparing to see the patient, buze-kw-ikeq patient care, completing clinical documentation, obtaining and/or [...] medical team. Standard se (more content not included)...[facility] 05-09-2024 History of Present illness Narrative* Melodie [...] visit. Either the patient or their legal customer solutions representative has been informed of the risks [...] them. No double whammies. Sperm bank/donor #: [id number] Blood type: A negative CMV Status: negative Genetic carrier considerations: patient Myriad negative donor is a carrier of: CFTR, [id number] Vial types available: IUI and ART Considerations [...] which included preparing to see the patient, ojmv-ww-balj patient care, completing clinical documentation, obtaining and/or [...] errors missed in proofreading. documented in this encounterCleveland Clinic [facility] Hospital01-15-2025 History of Present illness Narrative* Nola Enriquez, PhD - 05/02/2024 2:00 PM EST Psychosocial Consultation for Third Democrat Reproduction Virtual visit with audio and visual equipment POS 10 No SI, [place], Tobacco use On May 02, 2024, I met virtually with Jaz and Sravan Sanders. They were referred by Melodie Hernandez at [facility] for their required psychosocial consultation regarding third constitution party reproduction. Relevant History Jaz, 29, and Demetrius, 26, have been together for 8.5 years and for 6.5 years. 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 Demetrius also works at that [employer] The couple has been trying to conceive [...] Lynda's have already chosen a donor from [employer] in [place]. They chose this donor because heis CMV-, [...] constitution party reproductive option. documented in this [facility] Work Phone: 1(255) 982-439811-24-2024 NoteHNO ID: [id number] Author: MELODIE HERNANDEZ APRN.METAL CUT OFF SAW TENDER Service: ? Author Type: Nurse Practitioner Type: [...] visit. Either the patient or their legal customer solutions representative has been informed of the risks [...] Practice cycle Plan: Episode created.Reviewed checklist - Ubitexxhart message sent Practice cycle: recommended OPKs to test for ovulation and timing of IUIs, patient to call with +OPK, confirm ovulation with progesterone level Follow up once checklist is complete to discuss test results and next steps. Melodie Hernandez APRN.METAL CUT OFF SAW TENDER March 11, 2024 10:42 PM I spent a total of 55 minutes on the date of the service which included preparing to see the patient, aqnk-jg-ixyy patient care, completing clinical documentation, obtaining and/or [...] be grammatical and typographical errors missed in proofreading.[facility]11-24-2024 History of Present illness Narrative* Melodie Hernandez APRN.METAL CUT OFF SAW TENDER - 03/11/2024 10:42 PM EST Images from [...] visit. Either the patient or their legal customer solutions representative has been informed of the risks [...] Practice cycle Plan: Episode created.Reviewed checklist - AuditFile message sent Practice cycle: recommended OPKs to [...] which included preparing to see the patient, ofjs-tz-yagj patient care, completing clinical documentation, obtaining and/or [...] errors missed in proofreading. documented in this encounterCleveland Clinic [facility] Hospital11-22-2024 Instructions* Patient Instructions* Melodie Hernandez APRN.CNP [...] question, please call the office. ~Silvia MELY Hernandez.[facility] [phone] Donor Sperm Checklist Donor Sperm Labs Mandatory [...] Sravan must be present Amanda Gillespie MD ([place]) - [phone] Rani Sims (Filomena Hernandez) - [phone] - virtual visit Nola Dest[place], - virtual [...] to date). Please get scheduled with your passenger booking clerk or pcp if needed. Practice with Ovulation Predictor Kit (OPK) First day of full flow is cycle day #1. Start using on ovulation predictor kit on cycle day 10. Use your OPK once a day, in the morning with your second urine of the day. Send in a Alta Rail Technologyhart message when you get a positive OPK. [...] Once your checklist is complete, please call [phone] to get scheduled for a donor sperm follow up appointment. Sperm Bank Website [place] [facility] https://www.cryobank.com/ [facility] https://cryobio.com/ [facility] https://www.cryosinternational.com/ [place] [facility] https://[employer].Focus Media/ [place] [facility] https://www.[employer]Pace [employer].Focus Media/ [facility] [place] https://www.thespermbankHydrocision.org/ [facility] https://www.Goumin.com.Focus Media/ [facility] https://www.RubyRide.Focus Media/ If you would like to start browsing [...] is needed. Test: CPT Code: Blood type 12129 HIV 74320 CMV IgG 96967 CMV IgM 23685 Syphilis 37772 Hepatitis B Surface Ag 31024 Hepatitis B Core Ab, IgG and IgM 18841 Hepatitis C Ab 65246 Rubella 87842 Varicella 81836 Chlamydia 78729 Gonorrhea 73294 For the above tests, reference the diagnosis code of Z11.9 documented in this encounterCleveland Clinic [facility] Hospital11-12-2024 Plan of care note* JAMEL Plan [...] for three cycles. They will meet with IMPORT SPECIALIST to review the IUI checklist and sign consents. I spent a total of 45 minutes on the date of the service which included preparing to see the patient, buwa-bi-sstg patient care, completing clinical documentation, counseling and educating the patient/family/caregiver, and ordering medications, tests, or procedures. Ignacio Guy MD [facility]11-12-2024 Miscellaneous Notes* JAMEL Plan Note - [...] for three cycles. They will meet with IMPORT SPECIALIST to review the IUI checklist and sign consents. I spent a total of 45 minutes on the date of the service which included preparing to see the patient, siwy-ce-yqlb patient care, completing clinical documentation, counseling and educating the patient/family/caregiver, and ordering medications, tests, or procedures. Ignacio Guy MD documented in this encounterCleveland Clinic [facility] Hospital11-12-2024 Instructions* Patient Instructions* Ignacio Guy MD - 02/28/2024 2:47 PM EST Dear Jaz Sanders Using [facility] at [facility] requires some set up (outlined below). Requirements to use donor sperm at the [facility]: Teaching with JAMEL SKYLAR - please call [phone] to schedule a donor sperm teach with [...] to help with the donor selection process. [facility] Carrier Screen is the test ordered. Processing time takes 2-3 weeks. If your insurance doesn't cover it, the self-pay de oliveira is ~$250. Counselor You and your partner/spouse (if applicable) must see a counselor for a donor sperm assessment. Amanda Gillespie MD ([place]) - [phone] Rani Sims ([place]) - [phone] Doris Lama ([place]) - [phone] Consent form - must be signed by [...] Required Tests Test: CPT Code: Blood type 41882 HIV 89078 CMV IgG 70661 CMV IgM 51096 Syphilis 91043 Hepatitis B Surface Ag 07964 Hepatitis B Core Ab, IgG and IgM 91055 Hepatitis C Ab 12457 Rubella 65261 Varicella 72436 Chlamydia 77895 Gonorrhea 73563 For the above tests, reference the diagnosis code of Z31.49. [employer] Foresight Carrier Screen - [employer] will check coverage for you. For this [...] your test results into consideration. Sperm Bank [facility] [place] [facility] ([place]) [facility] Sperm Bank [facility] [employer] ([facility] [place]) [facility] *Do not order any sperm until your checklist is complete. We will review ordering instructions at your follow up visit. Next Steps: Call insurance to verify coverage for donor sperm panel. Schedule donor sperm teach with my nurse practitioner, Silvia Hernandez. Ignacio Guy MD [phone] documented in this encounterCleveland Clinic Mercy Hospital11-12-2024 NoteHNO ID: [id number] Author: IGNACIO GUY MD Service: ? Author [...] OB History Obstetric History No data available CONTENT MANAGER HISTORY: Patient's last menstrual period was 02/18/2024. 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 They will meet with IMPORT SPECIALIST to review the IUI checklist and sign consents. I spent a total of 45 minutes on the date of the service which included preparing to see the patient, okqg-vp-yphl patient care, completing clinical documentation, counseling and educating the patient/family/caregiver, and ordering medications, tests, or procedures. Ignacio Guy [facility]11-12-2024 History of Present illness Narrative* Ignacio [...] OB History Obstetric History No data available CONTENT MANAGER HISTORY: Patient's last menstrual period was 02/18/2024. 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 They will meet with IMPORT SPECIALIST to review the IUI checklist and sign consents. I spent a total of 45 minutes on the date of the service which included preparing to see the patient, jelx-ne-jyfl patient care, completing clinical documentation, counseling and educating the patient/family/caregiver, and ordering medications, tests, or procedures. Ignacio Guy MD documented in this encounterCleveland Clinic [facility] Hospital11-11-2024 Evaluation note* Diagnosis Onset Date Resolution Status Admit Date Degenerative superior labral anterior-to -posterior (SLAP) tear of right matthias acuteNovember 2023 2:25pmLaxity of ligamentacuteNovember 2023 2:25pm Multidirectional instability of glenohumeral jointacuteNovember 2023 2:25pmOther instability, right shoulderacuteNovember 2023 2:25pmRight carpal tunnel syndromeacuteNovember 2023 2:25pmStatus post arthroscopy of right shoulderacuteNovember 2023 2:25pmStatus post surgerynoneactive February 27, 2024 2:25pmDegenerative superior labral oodualuj-iy-wijvyihit (SLAP) tear of right shoacuteJanuary 2024 2:29pmLaxity of ligamentacute April 23, 2024 2:29pmMultidirectional instability of glenohumeral jointacute April 23, 2024 2:29pmOther instability, right shoulderacuteJanuary 2024 2:29pmRight carpal tunnel syndromeacuteJanuary 2024 2:29pmStatus post arthroscopy of right shoulderacuteJanuary 2024 2:29pm [facility] Work Phone: 1(995) 222-928311-11-2024 Evaluation note* Diagnosis Onset Date Resolution Status Admit Date Degenerative superior labral anterior-to -posterior (SLAP) tear of right matthias acuteNovember 2023 2:25pmLaxity of ligamentacuteNovember 2023 2:25pm Multidirectional instability of glenohumeral jointacuteNovember 2023 2:25pmOther instability, right shoulderacuteNovember 2023 2:25pmRight carpal tunnel syndromeacuteNovember 2023 2:25pmStatus post arthroscopy of right shoulderacuteNovember 2023 2:25pmStatus post surgerynoneactive February 27, 2024 2:25pmDegenerative superior labral isegssmo-rk-scfojggtc (SLAP) tear of right shoacuteJanuary 2024 2:29pmLaxity of ligamentacute April 23, 2024 2:29pmMultidirectional instability of glenohumeral jointacute April 23, 2024 2:29pmOther instability, right shoulderacuteJanuary 2024 2:29pmRight carpal tunnel syndromeacuteJanuary 2024 2:29pmStatus post arthroscopy of right shoulderacuteJanuary 2024 2:29pmAcute urticariaacute April 26, 2024 8:29amHypothyroidacuteJanuary 2024 8:29amOther chronic painacuteJanuary 2024 8:29am [facility] Work Phone: 1(611) 657-201911-04-2024 History of Present illness Narrative* Marsha Asif [...] nursing note reviewed. Exam conducted with a vertica architect present. Vitals: Estimated body mass index is [...] behalf of: TRENT Engle documented in this encounterReynolds County General Memorial HospitalAcexupkaxu21-26-8945 Note [id number]09-03-2024 Evaluation note* Diagnosis Onset Date Resolution Status Admit Date Degenerative superior labral anterior-to -posterior (SLAP) tear of right matthias acuteSeptember 2023 10:11amLaxity of ligamentacuteSeptember 2023 10:11amMultidirectional instability of glenohumeral jointacuteSeptember 2023 10:11amOther instability, right shoulderacuteSeptember 2023 10:11am Right carpal tunnel syndromeacuteSeptember 2023 10:11amStatus post arthroscopy of right shoulderacuteSeptember 2023 10:11amStatus post surgery noneactiveSeptember 2023 10:11amDegenerative superior labral fkvsqzzf-qi-ifvefsfng (SLAP) tear of right shoacuteOctober 2023 11:58am Laxity of ligamentacuteOctober 2023 11:58amMultidirectional instability of glenohumeral jointacuteOctober 2023 11:58amOther instability, right shoulderacuteOctober 2023 11:58amRight carpal tunnel syndromeacuteOctober 2023 11:58amStatus post arthroscopy of right shoulderacuteOctober 2023 11:58amStatus post surgerynoneactiveOctober 2023 11:58amDegenerative superior labral npuhabtw-ds-zqmicshrh (SLAP) tear of right shoacuteNovember 2023 2:25pmLaxity of ligamentacuteNovember 2023 2:25pm Multidirectional instability of glenohumeral jointacuteNovember 2023 2:25pmOther instability, right shoulderacuteNovember 2023 2:25pmRight carpal tunnel syndromeacuteNovember 2023 2:25pmStatus post arthroscopy of right shoulderacuteNovember 2023 2:25pmStatus post surgerynoneactive November 2023 2:25pm [facility] Work Phone: 1(344) 779-821407-17-2024 NoteEducation Materials Orthopedics Musculoskeletal Pain Musculoskeletal pain [...] mouth or applied to the skin. Take waow-cgu-lbqunvi and prescription medicines only as told by [...] provider. Document Revised: 08/07/2020 Document Reviewed: 07/16/2020 Next Caller Patient Education ? 2022 SpaceCurve.[facility] Memorial [id number] Evaluation note* Encounter Date Diagnosis Assessment Notes Treatment Notes Treatment Clinical Notes Apr, Intertrigo (ICD-10 - L30.4) [facility] Other 01-30-2024 Evaluation note* Encounter Date Diagnosis [...] pain of right shoulder (ICD-10 - M25.511) [facility] Other 01-05-2024 Evaluation note* Encounter Date Diagnosis Assessment Notes Treatment Notes Treatment Clinical Notes Apr, Other iron deficiency anemia (IC D-10 - D50.8) [facility] Other 12-28-2023 Evaluation note* Encounter Date Diagnosis Assessment Notes Treatment Notes Treatment Clinical Notes Mar, Vitamin D deficiency (ICD-10 - E 55.9) [facility] Other 10-23-2023 Evaluation note* Encounter Date Diagnosis [...] agreement for this and referral was given. [facility] Other 09-21-2023 Evaluation note* Encounter Date Diagnosis Assessment Notes Treatment Notes Treatment Clinical Notes Dec, Other iron deficiency anemia (IC D-10 - D50.8) Dec,Low folic acid (ICD-10 - E53.8) [facility] Other 09-11-2023 Evaluation note* Encounter Date Diagnosis [...] andcontinue to do the exercises for strength. [facility] Other 07-06-2023 Evaluation note* Encounter Date Diagnosis Assessment Notes Treatment Notes Treatment Clinical Notes Oct, Iron deficiency (ICD-10 - E61.1) [facility] Other 06-26-2023 Evaluation note* Encounter Date Diagnosis [...] symptoms and causing pain down the arm. [facility] Other 06-15-2023 Evaluation note* Encounter Date Diagnosis [...] verbalizes understanding and agrees c tx plan. [facility] Other 05-10-2023 Evaluation note* Encounter Date Diagnosis [...] follow-up if no improvement. She verbalizes understnading. [facility] Other 05-05-2023 Evaluation note* Encounter Date Diagnosis Assessment Notes Treatment Notes Treatment Clinical Notes August, Acquired hypothyroidism (ICD-10 - E03.9) Discussed with pt symptoms and lab resutls. Discussed treatment and evaluation. Referral placed to Dr. Sinclair. August,Hashimoto's disease (ICD-10 - E06.3) [facility] Other 02-24-2023 Progress note Author Farhad [facility] June 11, 2022 1:16pmNote Date/TimeFebruary 2022 1:07pm[place] [address] Hospitalist Progress Note Signed Patient: Jaz Sanders MR#: [id number] : 1995 Acct:[id number] Age/Sex: 27 / F Adm Date: 3 Loc: 4N Room: 7V8672-7 Type: ADM IN Attending Dr: Farhad Gallego [...] days. Patient has an appointment with her DISEASE INTERVENTION SPECIALIST next week. Educated her to go to ED if she continues to have heavy bleeding with symptoms, she verbalized understanding. We will send patient home on iron supplements and docusate as needed for constipation Patient is being discharged today. Documented By: Farhad Gallego MD 06/11/22 1306 Signed By: <Electronically signed by Farhad Gallego MD> 06/11/22 1316 [facility] Work Phone: 1(469) 583-243402-23-2023 History and physical note Author Farhad Gallego [facility] June 10, 2022 6:28pmNote Date/TimeFebruary 2022 5:39pmJava, [place] [address] Hospitalist H&P Signed Patient: Jaz Sanders MR#: [id number] : 1995 Acct:[id number] Age/Sex: 27 / F Adm Date: 3 Loc: Room: [address] [place] [address] Type: ADM INOo Attending Dr: Farhad Gallego MD Copies to: MD Amanda Correa, RISK MANAGEMENT INTERN, METAL CUT OFF SAW TENDER~ HPI DATE OF EXAMINATION: 06/10/22 CHIEF COMPLAINT: [...] % (Auto) 41.3 % (.) 06/10/22 14:51 Schuyler % (Auto) 6.8 % (.) 06/10/22 14:51 Eos % (Auto) 5.0 % (.) 06/10/22 14:51 Baso % (Auto) 1.8 % (.) 06/10/22 14:51 Nucleat RBC Rel Count 0.1 /100 WBC (0-0.5) 06/10/22 14:51 Neut # (Auto) 2.4 x10E3/uL (1.8-7.7) 06/10/22 14:51 Lymph # (Auto) 2.2 x10E3/uL (1.00-4.8) 06/10/22 14:51 Schuyler # (Auto) 0.4 x10E3/uL (0.0-0.8) 06/10/22 14:51 [...] pH 5.5 (5.0-9.0) 06/10/22 15:40 Ur Specific Worley 1.010 (1.001-1.030) 06/10/22 15:40 Urine Protein Negative [...] code Documented By: Farhad Gallego MD 06/10/22 7605 Signed By: <Electronically signed by Farhad Gallego MD> 06/10/22 0412 [facility] Work Phone: 1(823) 533-143701-04-2023 Evaluation note* Encounter Date Diagnosis Assessment Notes [...] for bleeding. Keep appointment with Dr. Elder. [facility] Other 12-13-2022 Evaluation note* Encounter Date Diagnosis Assessment Notes Treatment Notes Treatment Clinical Notes Mar, Arthritis of shoulder (ICD-10 - M19.019) [facility] Other 12-06-2022 Evaluation note* Encounter Date Diagnosis [...] she had offered her treatement for this. [facility] Other 11-30-2022 Evaluation note* Encounter Date Diagnosis Assessment Notes Treatment Notes Treatment Clinical Notes Feb, Gastroesophageal ref lux disease without esophagitis (ICD-10 - K21.9) [facility] Other 10-24-2022 Evaluation note* Encounter Date Diagnosis [...] to trial the ointment. Follow-up as needed. [facility] Other 05-11-2022 NoteEchocardiology Procedure Exam Date/Time Accession # Ordering Echo Transthoracic 08/25/2021 15:36 EDT [id number] Jay DAVEY, Samir Rivera CPT code 22064 Reason for Exam (Echo Transthoracic Complete) Bradycardia;Other [...] MD Transcribed by: kerry Technologist: [facility]04-21-2022 Note Echocardiology Procedure Exam Date/Time Accession # Ordering ECG Stress Exercise 08/06/2021 10:22 EDT [id number] Jay DAVEY, Samir Rivera CPT code 91969 Reason for Exam (ECG Stress Exercise) bradycardia;Other [...] Mariam Salazar MD Transcribed by: marixa Technologist: [facility]03-31-2022 Evaluation note* Encounter Date Diagnosis Assessment Notes [...] school on two different occasions.Order faxed to [employer]. Jun,Gastroesophageal reflux disease without esophagitis (ICD-10 - [...] a [employer]. Jun,Former smoker (ICD-10 - Z87.891) [facility] [employer] Other Evaluation + Plan note Future Appointments Appointment Date:08/06/2021 09:30:00 AM Scheduled [facility] Type:CV Stress (FT) Appointment Date:08/06/2021 11:00:00 AM Scheduled Provider: [facility] Type:CV Holter/Event (FT) Future Scheduled Tests Radiology* Echo Transthoracic Complete 07/24/21 * ECG [facility] Appointment Date:08/11/2021 10:30:00 AM Scheduled Provider:Samir Thompson MD [facility] Appointment Type:Cardiology Follow [facility] (FT[facility] Future Appointments Appointment Date:09/01/2021 02:30:00 PM Scheduled Provider:Samir Thompson MD [facility] Appointment Type:[facility]iology Follow Up (FT[facility] Future Appointments Appointment Date:2022 11:15:00 AM Scheduled Provider:Samir Thompson MD [facility] Type[facility] (FT[facility] noteNo InformationN[facility] [employer] Other Evaluation noteNo assessment information available [facility] Work Phone: Evaluation note* Diagnosis Onset Date Resolution Status Anemia acuteAnxiety and depressionacuteBipolar disorderacuteIron deficiency anemiaacute [facility] Work Phone: evaluation note* Diagnosis Onset Date Resolution Status Abdominal pain acuteChillsacuteConstipationacuteFeveracuteH/O gastric sleeveacuteVomitingacute [facility] Work Phone: Evaluation note* Diagnosis Onset Date Resolution Status [id number] acuteLaxity of ligamentacuteMultidirectional instability of glenohumeral joint acuteNumbness of right handacuteOther instability, right shoulderacute [facility] Work Phone: Evaluation note* Diagnosis Onset Date Resolution Status [id number] acuteLaxity of ligamentacuteMultidirectional instability of glenohumeral joint acuteNumbness of right handacuteOther instability, right shoulderacute NLK-[id number] of ligamentacuteMultidirectional instability of glenohumeral jointacuteNumbness of right handacuteOther instability, right shoulderacuteRight carpal tunnel syndromeacute [facility] Work Phone: Evaluation note* Diagnosis Onset Date Resolution Status [id number] acuteLaxity of ligamentacuteMultidirectional instability of glenohumeral joint acuteNumbness of right handacuteOther instability, right shoulderacute CHJ-[id number] of ligamentacuteMultidirectional instability of glenohumeral jointacuteNumbness of right handacuteOther instability, right shoulderacuteRight carpal tunnel aqylltdhpdflnJNZ-RELK-[id number] of ligamentacuteMultidirectional instability of glenohumeral jointacuteOther instability, right shoulderacuteRight carpal tunnel syndromeacute [facility] Work Phone: Evaluation note* Diagnosis Onset Date Resolution Status [id number] acuteLaxity of ligamentacuteMultidirectional instability of glenohumeral joint acuteNumbness of right handacuteOther instability, right shoulderacute UCN-ZLIS-[id number] of ligamentacuteMultidirectional instability of glenohumeral jointacuteNumbness of right handacuteOther instability, right shoulderacuteRight carpal tunnel cbzzcgbgleorcDCS-OQHH-[id number] of ligamentacuteMultidirectional instability of glenohumeral jointacuteOther instability, right shoulderacuteRight carpal tunnel syndromeacute QQP-RQOI-[id number] of ligamentacuteMultidirectional instability of glenohumeral jointacuteOther instability, right shoulderacuteRight carpal tunnel syndromeacuteStatus post arthroscopy of right shoulderacute [facility] Work Phone: Evaluation note* Diagnosis Onset Date Resolution Status [id number] acuteLaxity of ligamentacuteMultidirectional instability of glenohumeral joint acuteNumbness of right handacuteOther instability, right shoulderacuteRight carpal tunnel ijjqcxawfmxyaEWU-ZRCM-[id number] of ligamentacute Multidirectional instability of glenohumeral jointacuteOther instability, right shoulderacuteRight carpal tunnel ptnmpxxwclcgvHSS-MWUS-[id number] of ligamentacuteMultidirectional instability of glenohumeral jointacuteOther instability, right shoulderacuteRight carpal tunnel syndromeacuteStatus post arthroscopy of right shoulderacuteStatus post surgerynoneactive ZWX-WNGL-[id number] of ligamentacuteMultidirectional instability of glenohumeral jointacuteOther instability, right shoulderacuteRight carpal tunnel syndromeacuteStatus post arthroscopy of right shoulderacuteStatus post surgery noneactive [facility] Work Phone: Evaluation note* Diagnosis Well woman exam with routine gynecological exam Routine gynecological examination [facility] Diagnosis 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 [facility] Diagnosis Reproductive mgmt, 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 Special screening examination for infectious diseases Screening examination for unspecified infectious disease Encounter for other genetic testing of female for procreative management documented [facility]* Diagnosis Bipolar 1 disorder (Multi)- Primary Infertility counseling documented in this encounter [facility] Work Phone: Evaluation note* Diagnosis Treatment plan provided- Primary [facility] Diagnosis Reproductive mgmt, 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 [facility]* Diagnosis Procreative management- Primary Unspecified procreative management documented [facility]* Diagnosis Female infertility- Primary Female infertility of unspecified origin [facility] Fertility testing- Primary Female infertility Female infertility of unspecified origin [facility]* Diagnosis Encounter for fertility planning [Z31.89]- Primary Other specified procreative management [facility]* Diagnosis Encounter for artificial insemination- Primary Artificial insemination documented [facility]* Diagnosis 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)- Primary [facility]* Diagnosis 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)- Primary [facility]* Diagnosis Abnormal thyroid function test- Primary Nonspecific abnormal results of thyroid function study 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[facility]) Unspecified nontoxic nodular goiter Vitamin D deficiency documented in this encounter [facility]* Diagnosis 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) [facility]* Diagnosis Early stage of (HCC) state, incidental documented [facility]* Diagnosis Amenorrhea Absence of menstruation 9 weeks gestation of Missed menses , unspecified gestational age Encounter for supervision of normal first in first trimester documented in this encounter [facility] HealthcareEvaluation note* Diagnosis 13 weeks gestation of ([facility]) Second trimester ([facility]) state, incidental Thyroid disease Unspecified disorder of thyroid H/O gastric sleeve H/O iron deficiency anemia resulting from in vitro fertilization in first trimester ([facility]) documented in this encounter [facility] HealthcareEvaluation note* Diagnosis Well woman exam with routine gynecological exam Routine gynecological examination Exposure to STD Second trimester ([facility]) state, incidental 18 weeks gestation of ([facility]) Need for maternal serum alpha-protein (MSAFP) screening ([facility]) Screening, , for anatomic survey ([facility]) Encounter for anatomic survey Thyroid disease Unspecified disorder of thyroid documented in this encounter [facility] HealthcareEvaluation note* Diagnosis Previous gastric bypass affecting , antepartum- Primary Hypothyroidism affecting in second trimester Bipolar disease during in second trimester ([facility]) Obesity affecting in second trimester, unspecified [...] in second trimester documented [facility]* Diagnosis 22 weeks [...] unspecified obesity type documented in this [facility]* Diagnosis 26 weeks gestation of (HHS-HCC) Second trimester (HHS-HCC) state, incidental TSH (thyroid-stimulating hormone deficiency) Other specified acquired hypothyroidism documented in this encounter [facility] HealthcareEvaluation note* Diagnosis Third trimester (HHS-HCC) state, incidental 29 weeks gestation of (HHS-HCC) documented in this encounter [facility] HealthcareEvaluation note* Diagnosis Hypothyroidism affecting in second trimester- Primary headache in second trimester Previous gastric bypass affecting , antepartum Bipolar disease during in second trimester (CMS-HCC) documented in this encounter [facility] SystemEvaluation note* Diagnosis Third trimester (HHS-HCC) state, incidental 31 weeks gestation of ([facility]) TSH (thyroid-stimulating hormone deficiency) Other specified acquired hypothyroidism H/O gastric sleeve documented in this encounter [facility] general Narrative - Reported* Type Description Date Surgical History cholecystectomy 2014 Surgical History gastric sleeve 2020 [facility] Other History general Narrative - Reported* Type Description Date Medical History Hypothyroidism Medical HistoryMNGMedical HistoryenuresisMedical Historyextreme obesityMedical HistoryGERD with esophagitisMedical HistoryheadacheMedical HistoryGoiter, nontoxic, multinodularMedical HistoryVitamin D deficiencySurgical History bgedcaebqtudcgb4498Nwtrqqnk Bktqtpmbyhqtudjlmjicdd8704Mxayrkdv Historygastric lajyqb8275Zhyiylectubkvaz HistoryAnemia05/2022 [facility] Other Hospital course Narrative No data available for this section [facility] Discharge instructions No data available for this section [facility] Discharge instructions Additional Instructions POSTOPERATIVE INSTRUCTIONS FOR SHOULDER LABRAL REPAIR Romeo Santana DO Orthopedic Surgeon [facility] GENERAL INSTRUCTIONS: Use ice packs [...] office immediately. Romeo Santana DO Orthopedic Surgeon [facility] Office: [address] [place], [place] [address] Office number: [phone] [facility] Work Phone: Hospital Discharge instructionsAmbulatory Orders* Referral to Allergy/Immunology Time Frame: 04/26/24, Location: None Selected [facility] Work Phone: Hospital Discharge instructions Additional Instructions We evaluated you for your vaginal bleeding in . Your ultrasound was normal, the baby has a good heart rate, measuring at 13 weeks and 1 day. Your cervix was closed. Follow-up closely with your DISEASE INTERVENTION SPECIALIST. Return to the emergency department if you develop any worsening or concerning symptoms.[facility] Work Phone: InstructionsNot on filedocumented in this encounter [facility] [employer] SystemInstructionsNot on filedocumented in this encounter [facility] [employer] SystemInstructions* Attachments The following attachments cannot be sent through Care Everywhere. * Preeclampsia (Belarusian) documented in this encounterProTranzeo Wireless Technologies SystemInstructionsNot on file documented in this encounterProMedidc [employer] SystemInstructionsNot on file documented in this encounterProOhiohealth [facility] HospitalLender Sentinel SystemReason for referral (narrative)No reason for referral information availableKn[facility] Community Hospital Work Phone: Reason for visit Narrative* Consult, Test, Treat (Routine) - ClosedSpecialtyDiagnoses / ProceduresReferred By ContactReferred To ContactREPRODUCTIVE ENDOCRINOLOGY & FERTILITY Diagnoses Encounter for procreative management, unspecified Encounter for other procreative management Procedures ARTIFIC INSEMINATION INTRAUTERIN THAWING CRYOPRESERVED SPERM/SEMEN EACH ALIQUOT Daniel Hanna APRN.METAL CUT OFF SAW TENDER [address] [place] [address] Phone: tel: fax: Reproductive Endocrinology Infertility [address] [place] [address] Phone: tel: Referral IDStatusReasonStart DateExpiration DateVisits RequestedVisits [id number] Financial Clearance Required - Self Pay Patient Cleared - True Self-Pay required payment collected Do Not Bill Insurance - SP patient [facility] for visit Narrative* Diagnostic Procedure Only (Routine) - AuthorizedSpecialtyDiagnoses / ProceduresReferred By ContactReferred To ContactASCENSION [facility] Diagnoses Fertility testing Procedures PELVIC US WHI US PELVIC NONOBSTETRIC REAL-TIME IMAGE COMPLETE Ignacio Guy MD [address] [place] [address] Phone: tel: fax: [facility] [address] [place] [address] Referral IDStatusReasonStart DateExpiration DateVisits RequestedVisits [id number] Auto-Generated Referral Patient Cleared - True Self-Pay required payment collected Do Not Bill Insurance - SP patient / [facility] for visit Narrative* Consult, Test, Treat (Routine) - ClosedSpecialtyDiagnoses / ProceduresReferred By ContactReferred To Contact REPRODUCTIVE ENDOCRINOLOGY & FERTILITY Diagnoses Encounter for procreative management, unspecified Encounter for other procreative management Procedures THAWING CRYOPRESERVED SPERM/SEMEN EACH ALIQUOT ARTIFIC INSEMINATION INTRAUTERIN Daniel Hanna APRN.METAL CUT OFF SAW TENDER [address] [place] [address] Phone: tel: fax: Reproductive Endocrinology Infertility [address] [place] [address] Phone: tel: Referral IDStatusReasonStart DateExpiration DateVisits RequestedVisits [id number] Patient Cleared - True Self-Pay required payment collected Do Not Bill Insurance - SP patient / [facility] for visit Narrative* Financial Clearance (Routine) - ClosedSpecialtyDiagnoses / ProceduresReferred By ContactReferred To Contact FINANCE Diagnoses Collect for IUI-D washed sample Procedures THAWING CRYOPRESERVED SPERM/SEMEN EACH ALIQUOT ARTIFIC INSEMINATION INTRAUTERIN FINANCIAL CLEARANCE PHONE CALL Self Financial Clearance Phone Screening [place] [address] Referral IDStatusReasonStart DateExpiration DateVisits RequestedVisits [id number] Financial Clearance Required - Self Pay Patient Cleared - True Self-Pay required payment collected Do Not Bill Insurance - SP patient / [facility] for visit Narrative* Diagnostic Procedure Only (Routine) - ClosedSpecialtyDiagnoses / ProceduresReferred By ContactReferred To Contact [facility] Diagnoses 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) Procedures OBSTETRIC ULTRASOUND WHI US PREG UTERUS AFTER 1ST TRIMEST GESTATION Melodie Hernandez APRN.METAL CUT OFF SAW TENDER [address] [place] [address] Phone: tel: fax: [place] [address] Referral IDStatusReasonStart DateExpiration DateVisits RequestedVisits [id number] Auto-Generated Referral / [facility] for visit Narrative* Diagnostic Procedure Only (Routine) - ClosedSpecialtyDiagnoses / ProceduresReferred By ContactReferred To Contact [facility] Diagnoses Early stage of (HCC) Procedures OBSTETRIC ULTRASOUND WHI US PREG UTERUS AFTER 1ST TRIMEST GESTATION Melodie Hernandez APRN.METAL CUT OFF SAW TENDER [address] [place] [address] Phone: tel: fax: [place] [address] Referral IDStatusReasonStart DateExpiration DateVisits RequestedVisits [id number] Auto-Generated Referral / [facility] Advance Directives TypeDate RecordedPatient RepresentativeExplanationACP-Advance DirectiveACP-Power [...] drive you home after your procedure. Your intermodal truck driver must be 18 years of [...] questions, call the Pre-Admission Testing Unit at [phone]. Day of Surgery/Procedure As a patient at [facility] you can expect quality medical and nursing care that is centered on your individual needs. Our goal is to make your surgical experience as comfortableas possible . Directions to the Surgery Center [facility] is located at [address] [place] [address]. Please pull into the Emergency parking lot and stop at the supervisor dried yeast dotson. We offer free supervisor dried yeast service for all our surgery patients, if you choose not to have supervisor dried yeast parking we have additional parking across the street.You will enter the facility following the [facility] sign. Please stop at the information receptionist desk where you will be checked in by the staff. If you have any questions please call [phone]. Transportation after your procedure. You will need a friend or family member to drive you home after your procedure. Your intermodal truck driver must be18 years of age [...] may shave your face or neck. ? Deridder your teeth but do not swallow water. [...] or the day of surgery, please call [phone], or [phone] documented in this encounter* Instructions* Mukesh Montez, [...] 48 hours call the anesthesia department at [phone]. Will you need pain medication? The nerve [...] block please phone the Anesthesiology Department at [phone]. If the phone does not get answered please contact the hospital activated sludge operator at [phone] to page the backend python developer anesthesiologist Discharge Instructions for Bariatric Surgery You had a Laparoscopic Sleeve Gastrectomy (95179) surgery to treat obesity. Recovery from this [...] scheduled appointment, please call the office at [phone]. Call Your Doctor If Any of the [...] AM EST CLINICAL PHARMACY NOTE: MEDS TO [facility] Patient?: No Total # of Prescriptions Filled: 3 The following medications were delivered to the patient: Oxycodone-acetaminophen 5/325 mg tab Cyclobenzaprine 10 mg tab Enoxaparin 60mg /0.6 ml syr Total # of Interventions Completed: 1 Time Spent (min): 60 Additional Documentation:called patient case manager about the high co-pay on [...] SHOULDER DI SCUSS SURGERY Reason for Visit [id number] Laxity of ligament Multidirectional instability of glenohumeral joint Numbness of right hand Other instability, right shoulder Chief Complaint OP SP RT SHOULDER DI SCUSS SURGERY R20.0Reason for JqoddKHF-[id number] Laxity of ligament Multidirectional instability of glenohumeral joint Numbness of right hand Other instability, right shoulder Chief Complaint OP SP RT SHOULDER DI SCUSS SURGERY R20.0 EMG RESULTSReason for QxkipQMR-[id number] Laxity of ligament Multidirectional instability of glenohumeral joint Numbness of right hand Other instability, right shoulder [id number] Laxity of ligament Multidirectional instability of glenohumeral joint Numbness of right hand Other instability, right shoulder Right carpal tunnel syndrome Chief Complaint OP SP RT SHOULDER DI SCUSS SURGERY R20.0 EMG RESULTS Shoulder painReason for [id number] Laxity of ligament Multidirectional instability of glenohumeral joint Numbness of right hand Other instability, right shoulder [id number] Laxity of ligament Multidirectional instability of glenohumeral joint Numbness of right hand Other instability, right shoulder Right carpal tunnel syndrome Chief Complaint OP SP RT SHOULDER DI SCUSS SURGERY R20.0 EMG RESULTS Shoulder pain H & P RIGHT SHOULDER ARTHROSCOPY [id number] for [id number] Laxity of ligament Multidirectional instability of glenohumeral joint Numbness of right hand Other instability, right shoulder [id number] Laxity of ligament Multidirectional instability of glenohumeral joint Numbness of right hand Other instability, right shoulder Right carpal tunnel syndrome [id number] Laxity of ligament Multidirectional instability of glenohumeral joint Other instability, right shoulder Right carpal tunnel syndrome Chief Complaint OP SP RT SHOULDER DI SCUSS SURGERY R20.0 EMG RESULTS Shoulder pain H & P RIGHT SHOULDER ARTHROSCOPY 12-07-23 Shoulder pain Shoulder painReason for [id number] Laxity of ligament Multidirectional instability of glenohumeral joint Numbness of right hand Other instability, right shoulder [id number] Laxity of ligament Multidirectional instability of glenohumeral joint Numbness of right hand Other instability, right shoulder Right carpal tunnel syndrome [id number] Laxity of ligament Multidirectional instability of glenohumeral joint Other instability, right shoulder Right carpal tunnel syndrome Chief Complaint OP SP RT SHOULDER DI SCUSS SURGERY R20.0 EMG RESULTS Shoulder pain H & P RIGHT SHOULDER ARTHROSCOPY 12-07-23 Shoulder pain Shoulder pain 10-14 DAYS POST OPReason for [id number] Laxity of ligament Multidirectional instability of glenohumeral joint Numbness of right hand Other instability, right shoulder [id number] Laxity of ligament Multidirectional instability of glenohumeral joint Numbness of right hand Other instability, right shoulder Right carpal tunnel syndrome [id number] Laxity of ligament Multidirectional instability of glenohumeral joint Other instability, right shoulder Right carpal tunnel syndrome [id number] Laxity of ligament Multidirectional instability of glenohumeral joint Other instability, right shoulder Right carpal tunnel syndrome Status post arthroscopy of right shoulder Chief Complaint R20.0 EMG RESULTS Shoulder pain H & P RIGHT SHOULDER ARTHROSCOPY 12-07-23 Shoulder pain Shoulder pain 10-14 DAYS POST OP R20.0 4 WEEKSReason for [id number] Laxity of ligament Multidirectional instability of glenohumeral joint Numbness of right hand Other instability, right shoulder Right carpal tunnel syndrome [id number] Laxity of ligament Multidirectional instability of glenohumeral joint Other instability, right shoulder Right carpal tunnel syndrome [id number] Laxity of ligament Multidirectional instability of glenohumeral joint Other instability, right shoulder Right carpal tunnel syndrome Status post arthroscopy of right shoulder Status post surgery [id number] Laxity of ligament Multidirectional instability of glenohumeral [...] for Visit Admit Date 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 December 20, 2023 10:11am Laxity of ligament December 20, 2023 10:11am Multidirectional instability of glenohum eral joint December 20, 2023 10:11am Other instability, right shoulder Septem 2023 10:11am Right carpal tunnel syndrome December 192023 10:11am Status post arthroscopy of right shoulde r December 20, 2023 10:11am Status post surgery December 20, 2023 10:11am Degenerative superior labral wifklzlv-gz-cweviwaqq (SLAP) tear of right matthias January 17, 2024 11:58am Laxity of ligament January 17, 2024 11 :58am Multidirectional instability of glenohum eral joint January 17, 2024 11:58am Other instability, right shoulder Octobe 2023 11:58am Right carpal tunnel syndrome January 11:58am Status post arthroscopy of right shoulde r January 17, 2024 11:58am Status post surgery January 17, 2024 11 :58am Degenerative superior labral elllcrhb-im-mmbbbjpor (SLAP) tear of right matthias February 27, [...] for Visit Admit Date Degenerative superior labral jtmgxwua-fd-rgqzlfzzx (SLAP) tear of right matthias February 27, 2024 2:25pm Laxity of ligament February 27, 2024 2:25pm Multidirectional instability of glenohum eral joint February 27, 2024 2:25pm Other instability, right shoulder Novemb er 2023 2:25pm Right carpal tunnel syndrome February 262023 2:25pm Status post arthroscopy of right shoulde r February 27, 2024 2:25pm Status post surgery February 27, 2024 2:25pm Degenerative superior labral vdibfdtc-jc-tysixbfpa (SLAP) tear of right matthias April 23, [...] for Visit Admit Date Degenerative superior labral mwgdfxag-qj-qudlzvgjq (SLAP) tear of right matthias February 27, 2024 2:25pm Laxity of ligament February 27, 2024 2:25pm Multidirectional instability of glenohum eral joint February 27, 2024 2:25pm Other instability, right shoulder Novemb er 2023 2:25pm Right carpal tunnel syndrome February 262023 2:25pm Status post arthroscopy of right shoulde r February 27, 2024 2:25pm Status post surgery February 27, 2024 2:25pm Degenerative superior labral aqpdytcb-lu-kvinzoibe (SLAP) tear of right matthias April 23, [...] therapy exercises and steroid injection, MRI at [facility], Dr. 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 Rashard Olivera, [address] [facility] [address] [place] [address] [facility] ReasonCommentsGynecologic ExamReasonCommentsInfertilitySpecialtyDiagnoses / ProceduresReferred By ContactReferred To ContactREPRODUCTIVE ENDOCRINOLOGY & FERTILITY Diagnoses Female infertility, unspecified Procedures VV OFFICE/OP CONSLTJ NEW/EST PT MOD MDM 40 MINUTES Pcp, Ana Rosa, [employer] [facility] [address] [address] [place] [address] Referral IDStatusReasonStart DateExpiration DateVisits RequestedVisits [id number] Financial Clearance Required - Self Pay Patient Cleared - True Self-Pay required payment collected Do Not Bill Insurance - SP patient Financial Clearance Not Required [id number] sperm teachSpecialtyDiagnoses / ProceduresReferred By ContactReferred To ContactREPRODUCTIVE ENDOCRINOLOGY & FERTILITY Diagnoses Infertility counseling Procedures OFFICE/OUTPATIENT ESTABLISHED MOD MDM 30 MIN Melodie Hernandez, MELY.[facility] [address] [facility] [facility] [address] [place] [id number] [facility] [place] [address] [place] [address] Referral IDStatusReasonStart DateExpiration DateVisits RequestedVisits [id number] Financial Clearance Required - Self Pay Patient Cleared - True Self-Pay required payment collected Do Not Bill Insurance - SP patient /[id number] / ProceduresReferred By ContactReferred To ContactREPRODUCTIVE ENDOCRINOLOGY & FERTILITY Diagnoses Encounter for fertility testing Procedures OFFICE/OUTPATIENT ESTABLISHED LOW MDM 20 MIN [facility] [address] [place] [address] [facility] [address] [place] [address] Referral IDStatusReasonStart DateExpiration DateVisits RequestedVisits [id number] Financial Clearance Required - Self Pay Patient Cleared - True Self-Pay required payment collected Do Not Bill Insurance - SP patient [id number] PlanningReasonCommentsre iui this wknd/has cervical polyp questionReasonCommentsPatient [...] section and content) DATE CREATED AUTHOR 05/08/2020 [facility] DATE CREATED AUTHOR 'S ORGANIZ ATION 03/31/2021 [facility] DATE CREATED AUTHOR AUTHOR'S ORGANIZ ATION 09/04/2021 [facility] DATE CREATED AUTHOR AUTHOR'S ORGANIZ ATION 04/19/2024 [facility] DATE CREATED AUTHOR AUTHOR'S ORGANIZ ATION 05/05/2024 [facility] DATE CREATED AUTHOR AUTHOR'S ORGANIZ ATION 09/12/2024 [facility] DATE CREATED AUTHOR AUTHOR'S ORGANIZ ATION 10/05/2024 [facility] DATE CREATED AUTHOR AUTHOR'S ORGANIZ ATION 12/07/2024 [facility] DATE CREATED AUTHOR AUTHOR'S ORGANIZ ATION 12/07/2024 [facility] DATE CREATED AUTHOR AUTHOR'S ORGANIZ ATION 02/08/2025 [facility] DATE CREATED AUTHOR AUTHOR'S ORGANIZ ATION 02/21/2025 [facility] EPIC Care Teams (unrecognized sec tion and content) Team Status: Inactive Member Role Status Dates Mariam Appiah MD Primary Care Provider Active Amanda Ford APRN IMPORT SPECIALIST-CAttenrocky ProviderActive Team Status: Inactive Member Role Status Dates Amanda Ford APRN IMPORT SPECIALIST-C Primary Care Provider Active Dariel Howell ProviderActive Team Status: Inactive Member Role Status Dates Amanda Ford APRN IMPORT SPECIALIST-C Primary Care Provider Active Michelle Zhang ProviderActive Team Status: Active Member Role Status Dates Amanda Ford APRN IMPORT SPECIALIST-C Primary Care Provider Active Team Status: Inactive Member Role Status Dates Amanda Ford APRN IMPORT SPECIALIST-C Primary Care Provider, Attending Provider Active Team Status: Active Member Role Status Dates Amanda Ford APRN IMPORT SPECIALIST-C Primary Care Provider Active Dariel Howell ProviderActiveFarhad Gallego , MDAdmit Provider, Attending ProviderActive Team Status: Inactive Member Role Status Dates Amanda Ford APRN IMPORT SPECIALIST-C Primary Care Provider Active Dariel Howell ProviderActiveAnoDasilvaLashonda , MDAdmit Provider, Attending ProviderActive Team Status: Inactive Member Role Status Dates Amanda Ford APRN IMPORT SPECIALIST-C Primary Care Provider Active Silva Greco ProviderActive Team Status: Inactive Member Role Status Dates Provider Conversion Attending Provider Active St art: May 17, 2023 End: May 17, 2023 Team Status: Inactive Member Role Status Dates Amanda Ford APRN IMPORT SPECIALIST-C Primary Care Provider, Attending Provider Active Start: June 08, 2023 End: June 08, 2023 Team Status: Active Member Role Status Dates Amanda Ford APRN IMPORT SPECIALIST-C Primary Care Provider, Attending Provider Active Start: September 15, 2023 Team Status: Inactive Member Role Status Dates Amanda Ford APRN IMPORT SPECIALIST-C Primary Care Provider Active Start: October 13, 2023 End: October 13, 2023Romeo Santana DOAttending ProviderActiveStart: October 13, 2023 End: October 13, 2023 Team Status: Inactive Member Role Status Dates Amanda Ford APRN IMPORT SPECIALIST-C Primary Care Provider Active Start: October 26, 2023 End: October 26, 2023Romeo Santana DOAttending ProviderActiveStart: October 26, 2023 End: October 26, 2023 Team Status: Inactive Member Role Status Dates Amanda Ford APRN IMPORT SPECIALIST-C Primary Care Provider Active Start: November 01, 2023 End: November 01, 2023Romeo Santana DOAttending ProviderActiveStart: November 01, 2023 End: November 01, 2023 Team Status: Inactive Member Role Status Dates Amanda Ford APRN IMPORT SPECIALIST-C Primary Care Provider Active Start: November 28, 2023 End: November 28, 2023Romeo Santana DOAttending ProviderActiveStart: November 28, 2023 End: November 28, 2023 Team Status: Inactive Member Role Status Dates Amanda Ford APRN IMPORT SPECIALIST-C Primary Care Provider Active Start: December 01, 2023 End: December 01, 2023Romeo Santana DOAttending ProviderActiveStart: December 01, 2023 End: December 01, 2023 Team Status: Inactive Member Role Status Dates Amanda Ford APRN IMPORT SPECIALIST-C Primary Care Provider Active Start: December 07, 2023 End: December 07, 2023Romeo Santana DOAttending ProviderActiveStart: December 07, 2023 End: December 07, 2023 Team Status: Active Member Role Status Dates Amanda Ford APRN IMPORT SPECIALIST-C Primary Care Provider Active Start: December 07, 2023 Romeo Santana DOAttending Provider, Other ProviderActiveStart: December 07, 2023 Team Status: Inactive Member Role Status Dates Amanda Ford APRN IMPORT SPECIALIST-C Primary Care Provider Active Start: December 192023 End: December 20, 2023Romeo Santana DOAttending ProviderActiveStart: December 20, 2023 End: December 20, 2023 Team Status: Active Member Role Status Dates Amanda Ford APRN IMPORT SPECIALIST-C Primary Care Provider Active Start: December 182023 Romeo Santana , DOOther ProviderActiveStart: January 10, 2024 Daniel Hampton MDAttending ProviderActiveStart: January 10, 2024 Team Status: Inactive Member Role Status Dates Amanda Ford APRN IMPORT SPECIALIST-C Primary Care Provider Active Start: January 17, 2024 End: January 17, 2024Romeo Santana DOAttending ProviderActiveStart: January 17, 2024 End: January 17, 2024Team MemberRelationshipSpecialtyStart DateEnd Date Amanda Ford NP [address] [place] [address] [facility]01/17/23Team MemberRelationshipSpecialtyStart DateEnd Date Amanda Ford NP [address] [place] [address] [facility]01/17/23 Team Status: Inactive Member Role Status Dates Amanda Ford APRN IMPORT SPECIALIST-C Primary Care Provider Active Start: February 262023 End: February 27, 2024Romeo Santana DOAttending ProviderActiveStart: February 27, 2024 End: February 27, 2024Team MemberRelationshipSpecialtyStart DateEnd Date Amanda Ford NP PCP - [facility]01/17/23 Team Status: Active Member Role Status Dates Amanda Ford APRN IMPORT SPECIALIST-C Primary Care Provider Active Start: February Kenny Gallegos ProviderActiveStart: February 20, 2024 Team Status: Inactive Member Role Status Dates Amanda Ford APRN IMPORT SPECIALIST-C Primary Care Provider Active Start: April 23, 2024 End: April 23, 2024Kenny Gary ProviderActiveStart: April 23, 2024 End: April 23, 2024 Team Status: Inactive Member Role Status Dates Amanda Ford APRN IMPORT SPECIALIST-C Primary Care Provider, Attending Provider Active Start: April 26, 2024 End: April 26, 2024Team MemberRelationshipSpecialtyStart DateEnd Date Amanda Ford NP [address] [place] [address] [facility] Awejrgbx57/2/23Team MemberRelationshipSpecialtyStart DateEnd Date Amanda Ford NP [address] [place] [address] [facility] - [facility] Hsanygbc19/2/23Team MemberRelationshipSpecialtyStart DateEnd Date Amanda Ford NP [address] [place] [address] [facility] - [facility] Asoqdahl74/2/23Team MemberRelationshipSpecialtyStart DateEnd Date Amanda Ford NP [address] [place] [address] [facility] Dylrnosm52/2/23 Team Status: Inactive Member Role Status Dates Amanda Ford APRN IMPORT SPECIALIST-C Primary Care Provider Active Start: October 18, 2024 End: October 18lexjerri Arriaza , DOEmergency ProviderActiveStart: October 18, 2024 End: October 18, 2024Team MemberRelationshipSpecialtyStart DateEnd Date Amanda Ford NP [address] [place] [address] PCP - GeneralFamily Xuopzkeb74/2/23Team MemberRelationshipSpecialtyStart DateEnd Date No Pcp, [place] [address] PCP - GeneralFamily Medicine05/20/20Team MemberRelationshipSpecialtyStart DateEnd Date No Pcp, [place] [address] PCP - GeneralFamily Medicine05/20/20Team MemberRelationshipSpecialtyStart DateEnd Date Amanda Ford NP [address] [place] [address] PCP - GeneralFamily Dnolshqa48/2/23Team MemberRelationshipSpecialtyStart DateEnd Date Amanda Ford NP [address] [place] [address] PCP - GeneralFamily Nbiwgtcb32/2/23Team MemberRelationshipSpecialtyStart DateEnd Date Amanda Ford NP [address] [place] [address] PCP - GeneralFamily Gbzeuoup95/2/23 Team Status: Active Member Role Status Dates Amanda Ford APRN IMPORT SPECIALIST-C Primary Care Provider Active Start: November 17, 2024 Chris Dickerson , DOAttending ProviderActiveStart: November 17, 2024 Team Status: Active Member Role Status Dates Amanda Ford APRN IMPORT SPECIALIST-C Primary Care Provider Active Start: November 20, 2024 Les Juan , DOAttending ProviderActiveStart: November 20, 2024 Team Status: Active Member Role Status Dates Amanda Ford APRN IMPORT SPECIALIST-C Primary Care Provider Active Start: November 30, [...] Member Role Status Dates Amanda Ford APRN IMPORT SPECIALIST-C Primary Care Provider Active Start: December 02, 2024 End: December 03, 2024Eduardo Cruz , DOAttending ProviderActiveStart: December 02, 2024 End: December 03, 2024Team MemberRelationshipSpecialtyStart DateEnd Date No Pcp, [place] [address] PCP - GeneralFamily Medicine05/20/20Team MemberRelationshipSpecialtyStart DateEnd Date No Pcp, [place] [address] PCP - GeneralFamily Medicine05/20/20Team MemberRelationshipSpecialtyStart DateEnd Date Amanda Ford NP [address] [place] [address] PCP - GeneralFamily Vydgpycp43/2/23Team MemberRelationshipSpecialtyStart DateEnd Date No Pcp, [place] [address] PCP - GeneralFamily Medicine05/20/20Team MemberRelationshipSpecialtyStart DateEnd Date No Pcp, [place] [address] PCP - GeneralFamily Medicine05/20/20Team MemberRelationshipSpecialtyStart DateEnd Date Amanda Ford NP [address] [place] [address] PCP - GeneralFamily Wgyiecfd91/2/23Team MemberRelationshipSpecialtyStart DateEnd Date Amanda Ford NP [address] [place] [address] PCP - GeneralFamily Ujtfzgex97/2/23Team MemberRelationshipSpecialtyStart DateEnd Date Amanda Ford NP [address] [place] [place] [address] PCP - Generalmily Jvwcvbrg39/2/23Team MemberRelationshipSpecialtyStart DateEnd Date MerylsarahAmanda de la fuente NP [address] [place] [address] PCP - GeneralFamily Bvtaalep78/2/23 Goals (unrecognized section and content) Type Treatment [...] or prosecute any alcohol or drug abuse patient.[facility] Hospital[facility] the event this information is protected by the Federal Confidentiality of Alcohol and Drug Abuse Patient Records regulations: The Federal rules restrict any use of the information to criminally investigate or prosecute any alcohol or drug abuse patient.[facility] HospitalIn the event this information is protected by the Federal Confidentiality of Alcohol and Drug Abuse Patient Records regulations: The Federal rules restrict any use of the information to criminally investigate or prosecute any alcohol or drug abuse patient.[facility] HospitalIn the event this information is protected by the Federal Confidentiality of Alcohol and Drug Abuse Patient Records regulations: The Federal rules restrict any use of the information to criminally investigate or prosecute any alcohol or drug abuse patient.[facility] HospitalIn the event this information is protected by the Federal Confidentiality of Alcohol and Drug Abuse Patient Records regulations: The Federal rules restrict any use of the information to criminally investigate or prosecute any alcohol or drug abuse patient.[facility] HospitalIn the event this information is protected by the Federal Confidentiality of Alcohol and Drug Abuse Patient Records regulations: The Federal rules restrict any use of the information to criminally investigate or prosecute any alcohol or drug abuse patient.[facility] HospitalIn the event this information is protected by the Federal Confidentiality of Alcohol and Drug Abuse Patient Records regulations: The Federal rules restrict any use of the information to criminally investigate or prosecute any alcohol or drug abuse patient.[facility] HospitalIn the event this information is protected by the Federal Confidentiality of Alcohol and Drug Abuse Patient Records regulations: The Federal rules restrict any use of the information to criminally investigate or prosecute any alcohol or drug abuse patient.[facility] HospitalIn the event this information is protected by the Federal Confidentiality of Alcohol and Drug Abuse Patient Records regulations: The Federal rules restrict any use of the information to criminally investigate or prosecute any alcohol or drug abuse patient.[facility] HospitalIn the event this information is protected by the Federal Confidentiality of Alcohol and Drug Abuse Patient Records regulations: The Federal rules restrict any use of the information to criminally investigate or prosecute any alcohol or drug abuse patient.[facility] HospitalIn the event this information is protected by the Federal Confidentiality of Alcohol and Drug Abuse Patient Records regulations: The Federal rules restrict any use of the information to criminally investigate or prosecute any alcohol or drug abuse patient.[facility] HospitalIn the event this information is protected by the Federal Confidentiality of Alcohol and Drug Abuse Patient Records regulations: The Federal rules restrict any use of the information to criminally investigate or prosecute any alcohol or drug abuse patient.[facility] HospitalIn the event this information is protected by the Federal Confidentiality of Alcohol and Drug Abuse Patient Records regulations: The Federal rules restrict any use of the information to criminally investigate or prosecute any alcohol or drug abuse patient.[facility] HospitalIn the event this information is protected by the Federal Confidentiality of Alcohol and Drug Abuse Patient Records regulations: The Federal rules restrict any use of the information to criminally investigate or prosecute any alcohol or drug abuse patient.[facility] HospitalIn the event this information is protected by the Federal Confidentiality of Alcohol and Drug Abuse Patient Records regulations: The Federal rules restrict any use of the information to criminally investigate or prosecute any alcohol or drug abuse patient.[facility] HospitalIn the event this information is protected by the Federal Confidentiality of Alcohol and Drug Abuse Patient Records regulations: The Federal rules restrict any use of the information to criminally investigate or prosecute any alcohol or drug abuse patient.[facility] HospitalIn the event this information is protected by the Federal Confidentiality of Alcohol and Drug Abuse Patient Records regulations: The Federal rules restrict any use of the information to criminally investigate or prosecute any alcohol or drug abuse patient.[facility] HospitalIn the event this information is protected by the Federal Confidentiality of Alcohol and Drug Abuse Patient Records regulations: The Federal rules restrict any use of the information to criminally investigate or prosecute any alcohol or drug abuse patient.[facility] HospitalIn the event this information is protected by the Federal Confidentiality of Alcohol and Drug Abuse Patient Records regulations: The Federal rules restrict any use of the information to criminally investigate or prosecute any alcohol or drug abuse patient.[facility] HospitalIn the event this information is protected by the Federal Confidentiality of Alcohol and Drug Abuse Patient Records regulations: The Federal rules restrict any use of the information to criminally investigate or prosecute any alcohol or drug abuse patient.[facility] HospitalIn the event this information is protected by the Federal Confidentiality of Alcohol and Drug Abuse Patient Records regulations: The Federal rules restrict any use of the information to criminally investigate or prosecute any alcohol or drug abuse patient.[facility] HospitalIn the event this information is protected by the Federal Confidentiality of Alcohol and Drug Abuse Patient Records regulations: The Federal rules restrict any use of the information to criminally investigate or prosecute any alcohol or drug abuse patient.[facility] HospitalIn the event this information is protected by the Federal Confidentiality of Alcohol and Drug Abuse Patient Records regulations: The Federal rules restrict any use of the information to criminally investigate or prosecute any alcohol or drug abuse patient.[facility] HospitalIn the event this information is protected by the Federal Confidentiality of Alcohol and Drug Abuse Patient Records regulations: The Federal rules restrict any use of the information to criminally investigate or prosecute any alcohol or drug abuse patient.[facility] HospitalIn the event this information is protected by the Federal Confidentiality of Alcohol and Drug Abuse Patient Records regulations: The Federal rules restrict any use of the information to criminally investigate or prosecute any alcohol or drug abuse patient.[facility] HospitalIn the event this information is protected by the Federal Confidentiality of Alcohol and Drug Abuse Patient Records regulations: The Federal rules restrict any use of the information to criminally investigate or prosecute any alcohol or drug abuse patient.[facility] HospitalIn the event this information is protected by the Federal Confidentiality of Alcohol and Drug Abuse Patient Records regulations: The Federal rules restrict any use of the information to criminally investigate or prosecute any alcohol or drug abuse patient.[facility] FOR RECORDS PERTAINING TO PATIENTS WHO [...] BE BASED ON THE PRIMARY CLINICAL RECORDS. [facility] [employer] [facility]. provides no warranty or guarantee of the accuracy or completeness of information in this document.
[2025-03-28 14:34] VITALS: BP 121/68; PULSE 68
== END 2025-03-28 14:35 | disposition home or self-care (01) ==
LOC: FBCO 13:58 → FBC 14:03
PROVIDERS: PCP Nurse Practitioner Family; Visit Provider Obstetrics & Gynecology
DX: O99.283 Endocrine, nutritional and metabolic diseases complicating pregnancy, third trimester (principal); Z3A.36 36 weeks gestation of pregnancy
CPT/HCPCS: 59025

== ENCOUNTER 2025-04-01 13:59 | Outpatient (OUT) | payer MEDICAID, SELFPAY ==
--- NOTE | 2025-04-01 14:02 | US_ITS ---
[place] [id number] Patient Name: GUZMAN DEL CID MRN: [id number] date: 1995 Sex: F Assigned Patient Location: [facility] Current Patient Location: Accession/Order Number: [id number] Exam Date: 04/01/2025 14:03 Report Date: 04/01/2025 14:43 At the request of: BASIM BIRMINGHAM DO Procedure: US OB BPP w non-stress Biophysical profile. Reason for exam: Thyroid stimulating hormone deficiency COMPARISON: 03/25/2025 TECHNIQUE: Transabdominal imaging of the gravid uterus was obtained. FINDINGS: The health and wellness advisor reports a BPP of 8 out of 8. STARR is normal at 14.2 cm. heart rate 130 bpm. US/US OB BPP w non-stress IMPRESSION: BPP 8 out of 8. Impression dictated by: Sravan Dickinson Jr., D.O. 04/01/2025 2:43 PM Dictation Location: [place] [address] Electronically authenticated by: [id number] Y Date: 04/01/2025 14:43
[2025-04-01 14:17] VITALS: BP 130/81; PULSE 69
== END 2025-04-01 14:44 | disposition home or self-care (01) ==
LOC: US 14:00 → FBC 14:01
PROVIDERS: PCP Nurse Practitioner Family; Visit Provider Obstetrics & Gynecology
DX: O26.893 Other specified pregnancy related conditions, third trimester (principal); O99.283 Endocrine, nutritional and metabolic diseases complicating pregnancy, third trimester; Z3A.36 36 weeks gestation of pregnancy
CPT/HCPCS: 76818

== ENCOUNTER 2025-04-04 13:57 | Outpatient (OUT) | payer MEDICAID, SELFPAY ==
--- OUTSIDE RECORDS SUMMARY | 2024-04-25 08:30 | XMS_ITS ---
Author Organization [facility] Address [address] [place] [address] Care Team Providers Care Hotel Baggage Handler Name Role Phone Tabitha Zamora Primary Care Provider [phone] Jennifer Hahn Unavailable [phone] Julieta Jefferson [phone] REASON FOR VISIT 3 month f/u Encounters Encounter Location Date Provider Diagnosis [facility] [address] [place] [address] 04/25/2024 Julieta Jefferson Plan Of Treatment Next Appt Details Provider Name:Tabitha levin, 04/19/2025 10:45:00 AM, [address] [place], [address], Provider Name:Tabitha levin, 05/03/2025 08:30:00 AM, [address] [place], [address], Progress Notes * GUZMAN DEL CIDDOB: 5 (30 yo F)Acc No.[id number]:04/25/2024 Behavioral Health Patient: GUZMAN AMES Provider:?Julieta JeffersonDOB:1995???Age:29 Y ???Sex:FemaleDate:04/25/2024Phone:[phone]:[address], [id number]:Tabitha Zamora Subjective: * Chief Complaints: * 3 month f/u * Electronic signature of Julieta Jefferson , NELIDA, HAND OR MACHINE PASTER on 04/04/2025 at 02:02 PM EST Sign off status: Pending * Appointment Provider: Adin Jefferson Date: 0 04/25/2024 Generated for Printing/Faxing/eTransmitting on:?04/04/2025 02:02 PM EST
--- OUTSIDE RECORDS SUMMARY | 2024-07-25 05:30 | XMS_ITS ---
Author Organization [facility] es Address [address] [place] [address] Care Team Providers Care Mail Examiner Name Role Phone Tabitha Zamora Primary Care Provider Jennifer Hahn Unavailable [phone] Julieta Jefferson Unavailable [phone] REASON FOR VISIT 3 month f/u Encounters Encounter Location Date Provider Diagnosis [facility] [address] [place] [address] 07/25/2024 Julieta Jefferson Plan Of Treatment Next Appt Details Provider Name:Tabitha levin, 04/19/2025 10:45:00 AM, [address] [place], [address], Provider Name:Tabitha levin, 05/03/2025 08:30:00 AM, [address] [place], [address], Progress Notes * GUZMAN DEL CIDDOB: 5 (30 yo F)Acc No.[id number]:07/25/2024 Behavioral Health Patient: GUZMAN AMES Provider:?Julieta ReyezB:1995???Age:29 Y ???Sex:FemaleDate:07/25/2024Phone:[phone]:[address], [id number]:Tabitha Zamora Subjective: * Chief Complaints: * 3 month f/u * Electronic signature of NELIDA Newell, BIOMATERIALS ENGINEER on 04/04/2025 at 02:01 PM EST Sign off status: Pending * Appointment Provider: Adin Jefferson Date: 0 07/25/2024 Generated for Printing/Faxing/eTransmitting on:?04/04/2025 02:01 PM EST
--- OUTSIDE RECORDS SUMMARY | 2025-03-26 13:50 | XMS_ITS | Encounter Summary ---
Author Organization [facility] Address [address] [place] [address] Care Team Providers Care Table Keeper Name Role Phone Amanda Ford MAKE UP ARTIST Primary Care Provider Reason for Visit * ReasonCommentsRoutine Visit Encounter Details DateTypeDepartmentCare Team (Latest Contact Info)Ghswnjgvbhl22/09/2025 1:50 PM ESTRoutine [facility] [address] [place] [address] Jojo Ames PA [address] [facility] [address] [place], [facility]11 36 weeks gestation of ([facility]); Third trimester ([facility]); H/O gastric sleeve; Thyroid disease Social History Tobacco UseTypesPacks/DayYears UsedDateSmoking Tobacco: FormerCigarettes0.53 Quit: 05/24/2024Smokeless Tobacco: NeverAlcohol UseStandard Drinks/WeekComments Not Currently0 (1 standard drink = 0.6 oz pure alcohol)caffeine: 1-2 cups per day teaPHQ-2AnswerDate RecordedPatient Health Questionnaire-2 Hpjji646 Estimated Date of DaoaxlnxXgmysdhaKtp45/06/2026ased on Est. Date of ConceptionSex and Gender InformationValueDate RecordedSex Assigned at Mbgbdy3301/19/2023 8:10 PM EDTLegal GrjKcgktp28/02/2023 9:50 PM EDTGender Identity Matiqf6401/19/2023 8:10 PM EDTSexual OrientationNot on fileTravel HistoryTravel StartTravel SpxCehhkgg58/22/52423105/16/2024documented as of this encounter Last Filed Vital Signs Vital SignReadingTime TakenCommentsBlood Iltftaxq179/8012 1:59 PM EST Pulse--Temperature--Respiratory Rate--Oxygen Saturation--Inhaled Oxygen Concentration--Qsdrwy069 kg (305 lb)03/26/2025 1:59 PM ESTHeight--Body Mass Index42.54008/22/2024 10:04 AM EDTdocumented in this encounter Progress Notes * MELVI Engle - 03/26/2025 1:50 PM EST Reason for Appointment: Patient ID: Jaz Sandres is a 30 y.o. female who presents for Routine Visit Patient presents today for Return OB appointment. MEDICATIONS Current Outpatient Medications Medication Instructions albuterol HFA 90 mcg/act inhaler 2 puffs, Inhalation, Every 4 hours PRN azithromycin (Zithromax Z-Waylon) 250 MG tablet As directed docusate sodium (Colace) 100 MG capsule Every [...] gastric sleeve 03/06/2025 33 weeks gestation of ([facility]) 03/06/2025 Third trimester ([facility]) 03/06/2025 Resolved Ambulatory Problems Diagnosis Date [...] nursing note reviewed. Exam conducted with a drum worker present. Vitals: Estimated body mass index is 42.54 kg/m?? as calculated from the following: Height as of 08/22/24: 5' 11 . Weight as of this encounter: 305 lb. BP: 138/80 No LMP recorded. Patient is . Assessment/Plan ICD-10-CM 1. 36 weeks gestation of ([facility]) Z3A.36 POCT urinalysis dipstick manually resulted 2. Third trimester ([facility]) Z34.93 POCT urinalysis dipstick manually resulted CULTURE, GROUP B STREP WITH SUSCEPTIBLITY CULTURE, GROUP B STREP WITH SUSCEPTIBLITY 3. H/O gastric sleeve Z90.3 4. Thyroid disease E07.9 Assessment/Plan Patient is doing well but has complaints of being tired and having maternal discomfort due to . Patient verbalized frequent movement and was instructed to perform kick counts three times per day. labor precautions were given, LARC consent was signed/declined, and GBS was obtained. Cervical check was performed and patient is 1cm dilated. Orders Placed This Encounter Procedures CULTURE, GROUP B STREP WITH SUSCEPTIBLITY POCT urinalysis dipstick manually resulted Follow Up: Patient is to return to office in 1 week for routine OB appointment Documented by Lilibeth Green LPN on behalf of: MELVI Engle documented in this encounter Plan of Treatment DateTypeDepartmentCare Team (Latest Contact Info)Mjlklptelcb25/06/2026 9:30 AM EDTOffice Visit [facility] [place] [facility] [address] [place] [address] Darleen Sinclair MD [address] [place] [address] NameTypePriorityAssociated DiagnosesOrder ScheduleCULTURE, GROUP B STREP WITH SUSCEPTIBLITYLabRoutine Third trimester ([facility]) Expected: 03/26/2025, Expires: 03/26/2026documented as of this encounter Goals GoalPatient Goal TypeAssociated ProblemsRecent ProgressPatient-Stated?Author Reminders Care PlanOB RemindersNoOpen Scheduling, Backgrounddocumented as of this encounter Procedures Procedure NamePriorityDate/TimeAssociated DiagnosisCommentsPOCT URINALYSIS SWEYHXVMAhfkfcs44/09/2025 2:08 PM EST 36 weeks gestation of ([facility]) Third trimester ([facility]) documented in this encounter Results * POCT urinalysis dipstick manually resulted (03/26/2025 2:08 PM EST)Component ValueRef RangeTest MethodAnalysis TimePerformed AtPathologist SignatureColor, UAYellowClarity, UAClearGlucose, UANegativeNegative - 2000(110) ++++ mg/dL Bilirubin, UANegativeNegative - 4(70) +++ mg/dLKetones, UANegativeNegative - 160(16) ++++ mg/dLSpec Grav, UA1.0151 - 1.03Blood, UANegativeNegative - 50 Yehuda/mcLpH, UA6.05 - 9Protein, UANegativeNegative - 2000(20) ++++ mg/dL Urobilinogen, UA1.00.2 - 12 mg/dLLeukocytes, UANegativeNegative - 500+++ Kourtney/mcLNitrite, UANegativeNegative - PositiveSpecimen (Source)Anatomical Location / LateralityCollection Method / VolumeCollection TimeReceived Time Urine03/26/2025 2:08 PM EST Narrative Authorizing ProviderResult TypeResult StatusLawrence F. Quigley Memorial HospitalOINT OF CARE TEST ENTER/EDIT ORDERABLESFinal Result documented in this encounter Visit Diagnoses Diagnosis 36 weeks gestation of ([facility]) Third trimester ([facility]) state, incidental H/O gastric sleeve Thyroid disease Unspecified disorder of thyroid documented in this encounter Additional Health Concerns Active ProblemsNoted DateDiagnosed DateOB Lbeyqizot70/07/2025 documented as of this encounter Care Teams Team MemberRelationshipSpecialtyStart DateEnd Date Amanda Ford NP [address] [place] [address] PCP - GeneralFamily Tsuguolt71/2/23documented as of this encounter
--- OUTSIDE RECORDS SUMMARY | 2025-03-29 05:00 | XMS_ITS ---
Author Organization [facility] es Address [address] [place] [address] Care Team Providers Care Net Lead Architect Name Role Phone Tabitha Zamora Primary Care Provider Claudia Hahn Unavailable [phone] REASON FOR VISIT FAHEEM FROM CLAUDIA Encounters Encounter Location Date Provider Diagnosis [facility] [address] [place] [address] 03/29/2025 Tabitha Zamora Plan Of Treatment Next Appt Details Provider Name:Tabitha levin, 04/19/2025 10:45:00 AM, [address] [place], [address], Provider Name:Tabitha levin, 05/03/2025 08:30:00 AM, [address] [place], [address], Progress Notes * GUZMAN DEL CIDDOB: 5 (30 yo F)Acc No.[id number]:03/29/2025 Behavioral Health Patient: GUZMAN AMES :?Tabitha ZamoraDOB:1995???Age:30 Y???Sex: FemaleDate:03/29/2025Phone:[phone]:[address], [place] [id number] Subjective: * Chief Complaints: * T OC FROM CLAUDIA * Electronic signature of Tabitha Zamora , JULIETHNP on 04/04/2025 at 02:02 PM EST Sign off status: Pending * Provider: Chaparro Zamora Date: 1 05/30/2024 Generated for Printing/Faxing/eTransmitting on:?04/04/2025 02:02 PM EST
--- OUTSIDE RECORDS SUMMARY | 2025-04-02 10:00 | XMS_ITS | Encounter Summary ---
Author Organization [facility] Address [address] [place] [address] Care Team Providers Care Medical Research Associate Name Role Phone Amanda Ford MARKETING OPERATIONS MANAGER Primary Care Provider Reason for Visit * ReasonCommentsRoutine Visit Encounter Details DateTypeDepartmentCare Team (Latest Contact Info)Arghdhxfnbo33/16/2025 10:00 AM ESTRoutine [facility] [address] [place] [address] Les Martinez DO [address] [address] Third trimester ([facility]); 37 weeks gestation of ([facility]); Conceived by in vitro fertilization; Thyroid disease; H/O gastric sleeve; H/O iron deficiency anemia Social History Tobacco UseTypesPacks/DayYears UsedDateSmoking Tobacco: FormerCigarettes0.53 Quit: 05/24/2024Smokeless Tobacco: NeverAlcohol UseStandard Drinks/WeekComments Not Currently0 (1 standard drink = 0.6 oz pure alcohol)caffeine: 1-2 cups per day teaPHQ-2AnswerDate RecordedPatient Health Questionnaire-2 Wbvfk416 Estimated Date of RmajahneEaoaqmymGgs78/06/2026ased on Est. Date of ConceptionSex and Gender InformationValueDate RecordedSex Assigned at Hydvmb0001/19/2023 8:10 PM EDTLegal SmmTfzuhw16/02/2023 9:50 PM EDTGender Identity Gdyako9601/19/2023 8:10 PM EDTSexual OrientationNot on fileTravel HistoryTravel StartTravel WrlSorcgwr33/22/526151/documented as of this encounter Last Filed Vital Signs Vital SignReadingTime TakenCommentsBlood Hjqocvfa405/7604/02/2025 10:43 AM EST Pulse--Temperature--Respiratory Rate--Oxygen Saturation--Inhaled Oxygen Concentration--Rvckri702 kg (302 lb)04/02/2025 10:43 AM ESTHeight--Body Mass [...] gastric sleeve 03/06/2025 33 weeks gestation of ([facility]) 03/06/2025 Third trimester ([facility]) 03/06/2025 Conceived by in vitro fertilization 04/02/2025 Resolved Ambulatory Problems Diagnosis Date Noted No Resolved Ambulatory Problems Past Medical History: Diagnosis Date Abnormal results of thyroid function studies ADD (attention deficit disorder) Anemia Bariatric surgery status Bipolar disorder ([facility]) Dysmenorrhea Female infertility Functional enuresis [...] is . Assessment/Plan ICD-10-CM 1. Third trimester ([facility]) Z34.93 POCT urinalysis dipstick manually resulted 2. 37 weeks gestation of ([facility]) Z3A.37 3. Conceived by in [...] Plan of Treatment DateTypeDepartmentCare Team (Latest Contact Info)Oozqvbnroky89/06/2026 9:30 AM EDTOffice Visit [facility] [address] [place] [address] Darleen Sinclair MD [address] [place] [address] documented as of this encounter Goals GoalPatient Goal TypeAssociated ProblemsRecent ProgressPatient-Stated?Author Reminders Care PlanOB RemindersNoOpen Scheduling, Backgrounddocumented as of this encounter Procedures Procedure NamePriorityDate/TimeAssociated DiagnosisCommentsPOCT URINALYSIS DIBGLMJHGqdcjdx58/16/2025 10:44 AM EST Third trimester ([facility]) documented in this encounter Results [...] Additional Health Concerns Active ProblemsNoted DateDiagnosed DateOB Gpedqndvz70/07/2025 documented as of this encounter Care Teams Team MemberRelationshipSpecialtyStart DateEnd Date Amanda Ford NP [address] [place] [address] [place] [address] PCP - GeneralFamily Fhyugikt27/2/23documented as of this encounter
--- OUTSIDE RECORDS SUMMARY | 2025-04-04 14:01 | XMS_ITS | Encounter Summary ---
Author Organization [facility] Address [id number] [place] [address] Care Team Providers Care Hot Die Press Operator Name Role Phone No Pcp, No Pcp Primary Care Provider Unavailabl e Reason for Visit * ReasonCommentsMed Refill Encounter Details DateTypeDepartmentCare Team (Latest Contact Info)Qzhbqvdlqoh49/11/2025Refill Maternal- Medicine at [facility] [address] [place] [address] Latricia Garcia MD [address] [facility], [address] [place] [address] headache in second trimester Social History Tobacco UseTypesPacks/DayYears UsedDateSmoking Tobacco: FormerCigarettes2 Started: 2023Smokeless Tobacco: NeverAlcohol UseStandard Drinks/WeekCommentsNot Currently0 (1 standard drink = 0.6 oz pure alcohol)ChildcareAnswerDate Recorded HjbwxxwkzPjkadcs25/02/2021mploymentAnswerDate RecordedEmploymentUnknown 05/20/2020Hunger ScreeningAnswerDate RecordedWithin the past 12 months we worried whether our food would run out before we got money to buy more.Never True12/05/2024Within the past 12 months the food we bought just didn't last and we didn't have money to get more.Never True12/05/2024Purpose - LifeAnswerDate RecordedPurpose and direction in dujcOtoktgd40/02/2021Estimated Date of XtcdxkhyNcfechjyYoe96/06/2026Based on Other Basis, IUI conception date 07/31/2024 Sex and Gender InformationValueDate RecordedSex Assigned at BirthNot on file Legal FieMufivd21/06/2015 12:10 PM EDTGender IdentityNot on fileSexual OrientationNot on filedocumented as of this encounter Plan of Treatment Not on file documented as of this encounter Visit Diagnoses Diagnosis headache in second trimester documented in this encounter Care Teams Team MemberRelationshipSpecialtyStart DateEnd Date No Pcp, [place] [address] PCP - GeneralFamily Medicine05/20/20documented as of this encounter
--- OUTSIDE RECORDS SUMMARY | 2025-04-04 14:02 | XMS_ITS | Encounter Summary ---
Author Organization [facility] Address [address] [place] [address] Care Team Providers Care Speech Therapist Early Intervention Name Role Phone Amanda Hewitt INTELLIGENCE DIRECTOR Primary Care Provider Encounter Details DateTypeDepartmentCare Team (Latest Contact Info)Oscpflzdxcr65/04/2025Clinisync Result Encounter [facility] External Department Unsolicited Basim Martinez, DO [address] [facility] [address] [place], [place] [id number] Social History Tobacco UseTypesPacks/DayYears UsedDateSmoking Tobacco: FormerCigarettes0.53 Quit: 05/24/2024Smokeless Tobacco: NeverAlcohol UseStandard Drinks/WeekComments Not Currently0 (1 standard drink = 0.6 oz pure alcohol)caffeine: 1-2 cups per day teaPHQ-2AnswerDate RecordedPatient Health Questionnaire-2 Khkry284 Estimated Date of PibxyernQnswicjkNzw77/06/2026ased on Est. Date of ConceptionSex and Gender InformationValueDate RecordedSex Assigned at Sicfvc7801/19/2023 8:10 PM EDTLegal CrvHjqaxi15/02/2023 9:50 PM EDTGender Identity Oaweiq3001/19/2023 8:10 PM EDTSexual OrientationNot on fileTravel HistoryTravel StartTravel JqhPolmulp42/22/202511/documented as of this encounter Plan of Treatment DateTypeDepartmentCare Team (Latest Contact Info)Qxuazdbpfoi23/06/2026 9:30 AM EDTOffice Visit [facility] [place] [facility] [address] [place] [address] Darleen Sinclair MD [address] [place] [address] documented as of this encounter Goals GoalPatient Goal TypeAssociated ProblemsRecent ProgressPatient-Stated?Author Reminders Care PlanOB RemindersNoOpen Scheduling, Backgrounddocumented as of this encounter Procedures Procedure NamePriorityDate/TimeAssociated DiagnosisCommentsUS OB BPP W NON-HKBWTX3303/21/2025 3:52 PM EST documented in this encounter Results * US OB BPP W NON-STRESS (03/21/2025 3:52 PM EST)Anatomical Region LateralityModalityOtherSpecimen (Source)Anatomical Location / Laterality Collection Method / VolumeCollection TimeReceived Time03/21/2025 3:52 PM EST Narrative 03/21/2025 3:54 PM EST [facility] ?[address] ? [place] [address] ? Ultrasound Report ? Signed ? Patient: GUZMAN DEL CID ?MR#: [id number] ?? : 1995 ?Acct:[id number] ?? Age/Sex: 30 / F ?ADM Date: 03/21/25 ?? Loc: FBCO ? Attending Dr: Basim Martinez D.O. ? Ordering Physician: Basim Martinez D.O. ?? Date of Service: 03/21/25 ?? Procedure(s): US OB BPP w non-stress ?? Accession Number(s): [id number] ? cc: Basim Martinez D.O.; AMANDA HEWITT ? [facility] ? [address] ? [place] [address] ? Patient Name: ?? GUZMAN DEL CID ? MRN: [id number] ? date: 1995 ?Sex: F ?? Assigned Patient Location: FBCO ?? Current Patient Location: ? Accession/Order Number: [id number] ?? Exam Date: 03/21/2025 ??15:00 ?Report Date: 03/21/2025 ??15:52 ? At the request of: ?? BASIM ??JUAN ??DO ? Procedure: ??US OB BPP w non-stress ? Biophysical profile. ? Reason for exam: Thyroid deficiency decreased movement ? COMPARISON: 03/18/2025 ? TECHNIQUE: Transabdominal imaging of the gravid uterus was obtained. ? FINDINGS: The lottery clerk reports a BPP of 8 out of 8. ??STARR is normal at 14.4 ?? cm. ?? heart rate 136 bpm. ? US/ OB BPP w non-stress ?? IMPRESSION: BPP 8 out of 8. ? Impression dictated by: Sravan Dickinson Jr., D.O. ??03/21/2025 3:52 PM ? Dictation Location: [facility]-- ? Electronically authenticated by: [id number] ??Y ?? Date: 03/21/2025 ??15:52 ? Dictated By: ?Sravan Dickinson M.D. ? Signed By: ?03/21/251553 ? DD/ 1552 ? TD/TT: ? Health Care Law Specialist: Procedure Note Radiology, Radiologist, MD - 03/22/2025 [place] [address] Ultrasound Report Signed Patient: GUZMAN DEL CID EMR#: [id number] : 1995Acct:[id number] Age/Sex: 30 / FADM Date: 03/21/25 Loc: FBCO Attending Dr: Basim Martinez D.O. Ordering Physician: Basim Martinez D.O. Date of Service: 03/21/25 Procedure(s): US OB BPP w non-stress Accession Number(s): [id number] cc: Basim Martinez D.O.; AMANDA HEWITT [address] [address] Patient Name: GUZMAN DEL CID MRN: TBH:[id number] date: 1995 Sex: F Assigned Patient Location: [facility] Current Patient Location: Accession/Order Number: [id number] Exam Date: 03/21/2025 15:00 Report Date: 03/21/2025 15:52 At the request of: BASIM MARTINEZ DO Procedure: US OB BPP w non-stress Biophysical profile. Reason for exam: Thyroid deficiency decreased movement COMPARISON: 03/18/2025 TECHNIQUE: Transabdominal imaging of the gravid uterus was obtained. FINDINGS: The lottery clerk reports a BPP of 8 out of 8. STARR is normal at14.4 cm. heart rate 136 bpm. US/US OB BPP w non-stress IMPRESSION: BPP 8 out of 8. Impression dictated by: Sravan Dickinson Jr., D.O. 03/21/2025 3:52 PM Dictation Location: [place] [address] Electronically authenticated by: [id number] Y Date: 5:52 Dictated By: Sravan Dickinson M.D. Signed By:03/21/25 1554 DD/ 1552 TD/TT: Health Care Law Specialist: Authorizing ProviderResult TypeResult StatusCorey Juan DOCLINISYNC IMAGINGFinal Result documented in this encounter Visit Diagnoses Not on filedocumented in this encounter Additional Health Concerns Active ProblemsNoted DateDiagnosed DateOB Uejuoixps97/07/2025 documented as of this encounter Care Teams Team MemberRelationshipSpecialtyStart DateEnd Date Amanda Hewitt NP [address] [place] [address] PCP - GeneralFamily Bfwoxiju41/2/23documented as of this encounter
--- OUTSIDE RECORDS SUMMARY | 2025-04-04 14:02 | XMS_ITS | Encounter Summary ---
Author Organization [facility] Address [address] [place] [address] Care Team Providers Care Dye Weigher Helper Name Role Phone Amanda Ford INSURANCE MARKETING REP Primary Care Provider Encounter Details DateTypeDepartmentCare Team (Latest Contact Info)Nltberkikkm70/16/2025bstract [facility] [address] [place] [address] Les Martinez DO [address] [facility] [place] [address] Social History Tobacco UseTypesPacks/DayYears UsedDateSmoking Tobacco: FormerCigarettes0.53 Quit: 05/24/2024Smokeless Tobacco: NeverAlcohol UseStandard Drinks/WeekComments Not Currently0 (1 standard drink = 0.6 oz pure alcohol)caffeine: 1-2 cups per day teaPHQ-2AnswerDate RecordedPatient Health Questionnaire-2 Fabzb666 Estimated Date of XfqrjettOfsoqbmkSwf60/06/2026ased on Est. Date of ConceptionSex and Gender InformationValueDate RecordedSex Assigned at Rjosus0101/19/2023 8:10 PM EDTLegal IsvDseovn58/02/2023 9:50 PM EDTGender Identity Aunycm4101/19/2023 8:10 PM EDTSexual OrientationNot on fileTravel HistoryTravel StartTravel MpmIsdxsve18/22/23216905/16/2024documented as of this encounter Plan of Treatment DateTypeDepartmentCare Team (Latest Contact Info)Gosomnpixid44/06/2026 9:30 AM EDTOffice Visit [facility] [address] [place] [address] Darleen Sinclair MD [address] [place] [address] documented as of this encounter Goals GoalPatient Goal TypeAssociated ProblemsRecent ProgressPatient-Stated?Author Reminders Care PlanOB RemindersNoOpen Scheduling, Backgrounddocumented as of this encounter Visit Diagnoses Not on filedocumented in this encounter Additional Health Concerns Active ProblemsNoted DateDiagnosed DateOB Mlbplmzzj00/07/2025 documented as of this encounter Care Teams Team MemberRelationshipSpecialtyStart DateEnd Date Amanda Ford NP [address] [place] [address] PCP - GeneralFamily Fcarwntg33/2/23documented as of this encounter
--- OUTSIDE RECORDS SUMMARY | 2025-04-04 14:02 | XMS_ITS | Encounter Summary ---
Author Organization [facility] Address [address] [place] [address] Care Team Providers Care Acetaldehyde Converter Operator Name Role Phone Amanda Hewitt DROP TESTER Primary Care Provider Encounter Details DateTypeDepartmentCare Team (Latest Contact Info)Nujyvvodlcl33/08/2025Clinisync Result Encounter [facility] External Department Unsolicited Basim Martinez, DO [address] [facility] [address] [place], [place] [address] Social History Tobacco UseTypesPacks/DayYears UsedDateSmoking Tobacco: FormerCigarettes0.53 Quit: 05/24/2024Smokeless Tobacco: NeverAlcohol UseStandard Drinks/WeekComments Not Currently0 (1 standard drink = 0.6 oz pure alcohol)caffeine: 1-2 cups per day teaPHQ-2AnswerDate RecordedPatient Health Questionnaire-2 Gwlhy193 Estimated Date of XwpbkcgxXlhrsnswNki52/06/2026ased on Est. Date of ConceptionSex and Gender InformationValueDate RecordedSex Assigned at Ksseod4101/19/2023 8:10 PM EDTLegal KllGxiama60/02/2023 9:50 PM EDTGender Identity Syjize5501/19/2023 8:10 PM EDTSexual OrientationNot on fileTravel HistoryTravel StartTravel MjrNlfsyrm92/22/202511/documented as of this encounter Plan of Treatment DateTypeDepartmentCare Team (Latest Contact Info)Itaeuyjqkhz27/06/2026 9:30 AM EDTOffice Visit [facility] [place] [facility] [address] [place] [address] Darleen Sinclair MD [address] [place] [address] documented as of this encounter Goals GoalPatient Goal TypeAssociated ProblemsRecent ProgressPatient-Stated?Author Reminders Care PlanOB RemindersNoOpen Scheduling, Backgrounddocumented as of this encounter Procedures Procedure NamePriorityDate/TimeAssociated DiagnosisCommentsUS OB BPP W NON-KUZUCC2503/25/2025 4:30 PM EST documented in this encounter Results * US OB BPP W NON-STRESS (03/25/2025 4:30 PM EST)Anatomical Region LateralityModalityOtherSpecimen (Source)Anatomical Location / Laterality Collection Method / VolumeCollection TimeReceived Time03/25/2025 4:30 PM EST Narrative 03/25/2025 4:33 PM EST [facility] ?[address] ? [place] [address] ? Ultrasound Report ? Signed ? Patient: GUZMAN DEL CID ?MR#: [id number] ?? : 1995 ?Acct:[id number] ?? Age/Sex: 30 / F ?ADM Date: 03/25/25 ?? Loc: US ? Attending Dr: Basim Martinez D.O. ? Ordering Physician: Basim Martinez D.O. ?? Date of Service: 03/25/25 ?? Procedure(s): US OB BPP w non-stress ?? Accession Number(s): [id number] ? cc: Basim Martinez D.O.; AMANDA HEWITT ? [facility] ? [address] ? [place] [address] ? Patient Name: ?? GUZMAN DEL CID ? MRN: [id number] ? date: 1995 ?Sex: F ?? Assigned Patient Location: FBC ?? Current Patient Location: ? Accession/Order Number: [id number] ?? Exam Date: 03/25/2025 ??14:05 ?Report Date: [...] M.D. ??03/25/2025 4:30 PM ? Dictation Location: [facility] ? Electronically authenticated by: [id number] ??Y ?? Date: 03/25/2025 ??16:30 ? Dictated By: ?Zachary Simon M.D. ? Signed By: ?03/25/25 1633 ? DD/ 1630 ? TD/TT: ? Mechanical Technologist: Procedure Note Radiology, Radiologist, - 03/26/2025 [place] [address] Ultrasound Report Signed Patient: GUZMAN DEL CID EMR#: [id number] : 1995Acct:[id number] Age/Sex: 30 / FADM Date: 03/25/25 Loc: US Attending Dr: Basim Martinez D.O. Ordering Physician: Basim Martinez D.O. Date of Service: 03/25/25 Procedure(s): US OB BPP w non-stress Accession Number(s): [id number] cc: Basim Martinez D.O.; AMANDA HEWITT [facility] [address], [place] [address] Patient Name: GUZMAN DEL CID MRN: [facility]:[id number] date: 1995 Sex: F Assigned Patient Location: [facility] Current Patient Location: Accession/Order Number: [id number] Exam Date: 03/25/2025 14:05 Report Date: 03/25/2025 [...] Simon M.D. 03/25/2025 4:30 PM Dictation Location: [place] [address] Electronically authenticated by: [id number] Y Date: 6:30 Dictated By: Zachary Simon M.D. Signed By:03/25/25 1633 DD/ 163 TD/TT: Mechanical Technologist: Authorizing ProviderResult TypeResult StatusCorey Juan DOCLINISYNC IMAGINGFinal Result documented in this encounter Visit Diagnoses Not on filedocumented in this encounter Additional Health Concerns Active ProblemsNoted DateDiagnosed DateOB Lahnuzxkv30/07/2025 documented as of this encounter Care Teams Team MemberRelationshipSpecialtyStart DateEnd Date Amanda Hewitt NP [address] [facility] [address] [place] [id number] PCP - GeneralFamily Gopcxgzn99/2/23documented as of this encounter
--- OUTSIDE RECORDS SUMMARY | 2025-04-04 14:02 | XMS_ITS | Encounter Summary ---
Author Organization [facility] Address [address] [place] [address] Care Team Providers Care Records Coordinator Name Role Phone Amanda Ford PROJECTION ENGINEER Primary Care Provider Encounter Details DateTypeDepartmentCare Team (Latest Contact Info)Crqakzmxmji21/09/2025Bamboo flowsheet [facility] [address] [facility] [place] [phone] Jojo Ames PA [address] [facility] [address] [place], [facility] Social History Tobacco UseTypesPacks/DayYears UsedDateSmoking Tobacco: FormerCigarettes0.53 Quit: 05/24/2024Smokeless Tobacco: NeverAlcohol UseStandard Drinks/WeekComments Not Currently0 (1 standard drink = 0.6 oz pure alcohol)caffeine: 1-2 cups per day teaPHQ-2AnswerDate RecordedPatient Health Questionnaire-2 Kvnnq215 Estimated Date of AixfeldrNepekbloCvv88/06/2026Based on Est. Date of ConceptionSex and Gender InformationValueDate RecordedSex Assigned at Vjflky4901/19/2023 8:10 PM EDTLegal NiaXksezs47/02/2023 9:50 PM EDTGender Identity Vxyfcf4401/19/2023 8:10 PM EDTSexual OrientationNot on fileTravel HistoryTravel StartTravel RvdSjgdzih80/22/61665705/16/2024documented as of this encounter Plan of Treatment DateTypeDepartmentCare Team (Latest Contact Info)Elfoeogdozt36/06/2026 9:30 AM EDTOffice Visit [facility] [place] [facility] [address] [place] [address] Darleen Sinclair MD [address] [place] [address] documented as of this encounter Goals GoalPatient Goal TypeAssociated ProblemsRecent ProgressPatient-Stated?Author Reminders Care PlanOB RemindersNoOpen Scheduling, Backgrounddocumented as of this encounter Visit Diagnoses Not on filedocumented in this encounter Additional Health Concerns Active ProblemsNoted DateDiagnosed DateOB Fbamjzcoj56/07/2025 documented as of this encounter Care Teams Team MemberRelationshipSpecialtyStart DateEnd Date Amanda Ford NP [address] [place] [address] PCP - GeneralFamily Nakdoxwq35/2/23documented as of this encounter
--- OUTSIDE RECORDS SUMMARY | 2025-04-04 14:02 | XMS_ITS | Clinical Summary ---
Author Organization [facility] Address [address] [place] [address] Care Team Providers Care Editor Index Name Role Phone Unavailable Primary Care Provider [...] RecordedNational Score (1-100), lower number is lower ebqf393302/28/2024State Score (1-10), lower number is lower xfun37004/29/2023 Data from: https://www.neighborhoodatlas.medicine.[facility]/. Last address used for owwahyehdcw428 self mnvmikotb96/12/2024CommentsYesSex and Gender InformationValueDate RecordedSex Assigned at BirthNot on fileLegal SexFemale 07/13/2023 12:45 PM EDTGender IdentityNot on fileSexual OrientationNot on file Last Filed Vital Signs Vital SignReadingTime TakenCommentsBlood Pressure--Pulse--Temperature-- Respiratory Rate--Oxygen Saturation--Inhaled Oxygen Concentration--Ljoyro73.3 kg (216 lb 11.4 oz)02/28/2024 2:03 PM PYLRzdlmr391.3 cm (5' 11 )02/28/2024 2:03 PM ESTBody Mass Index30.23104/29/2023 2:03 PM EST Plan of Treatment Health MaintenanceDue DateLast DoneCommentsAnxiety Lkdldyhew26/17/2013Depression Zortuapul76/17/2013Hepatitis B Vaccine (1 of 3 - 19+ 3-dose series)2014 Cervical Cancer Muakxmnti48/17/2016HPV Vaccine (1 - 3-dose SCDM series) 2022ovid-19 Vaccine ( - 2024- season)2024Influenza Vaccine (#1) 2024DTaP,Tdap,Td Vaccine (2 - Td or Tdap)/12/2022RSV Vaccine (1 - 1-dose 75+ series)2070HIV PklatxmsoHtxdnklsp10/16/2024Hepatitis C WpzzmfbfsSyahkbofy52/16/2024 Procedures Procedure NamePriorityDate/TimeAssociated DiagnosisCommentsHIV 1/2 COMBO WITH REFLEX TO EXNUYBLTYQWRHFIJrpqiqt60/16/2024 3:21 PM EST Special screening examination for infectious diseases HEPATITIS C ANTIBODY IA WITH VXMRUQBYFAGDEpamtri79/16/2024 3:21 PM EST Special screening examination for infectious diseases from Last 3 Months or Most Recently Relevant to Health Maintenance Results * HIV 1/2 COMBO WITH REFLEX TO DIFFERENTIATION (04/02/2024 3:21 PM EST)Component ValueRef RangeTest MethodAnalysis TimePerformed AtPathologist SignatureHIV 12 Combo (Ag/Ab)RsgdkqzxkurVezdwvznxob08/17/2024 12:27 PM [facility] LABHIV-1/2 AB (Confirmatory)04/03/2024 12:27 PM [facility] LABComment:Test not indicated.HIV Ysfqvlmngoucxt04/17/2024 12:27 PM [facility] LABComment: No evidence of HIV-1 or HIV-2 infection. Should recent infection be suspected, repeat testing may be considered 2-3 weeks after this draw. [place] Rev. Code 3701.243(E): This information has been [...] Hernandez APRN.CNPLABORATORY Final ResultPerforming OrganizationAddressCity/State/ZIP CodePhone Number [facility] [address] [place] [address], * HEPATITIS C ANTIBODY IA WITH CONFIRMATION (04/02/2024 3:21 PM EST)Component ValueRef RangeTest MethodAnalysis TimePerformed AtPathologist SignatureHep C Antibody YXVgnjvaceVqyoitfa79/17/2024 11:20 AM [facility] LABComment:The result suggests no evidence of active infection with Hepatitis C virus. Should recent infectionbe suspected, repeat testing may be considered 4-6 weeks after this draw.Specimen (Source)Anatomical Location / Laterality Collection Method / VolumeCollection TimeReceived TimeBloodBLOOD SPECIMEN / UnknownVenipuncture / Bvvrvmc3604/02/2024 3:21 PM EST04/02/2024 3:22 PM EST Narrative Authorizing ProviderResult TypeResult StatusShelly Hernandez APRN.CNPLABORATORY Final ResultPerforming OrganizationAddressCity/State/ZIP CodePhone Number [facility] [address] [facility] [address] [address], from Last 3 Months or Most Recently Relevant to Health Maintenance Insurance
--- OUTSIDE RECORDS SUMMARY | 2025-04-04 14:02 | XMS_ITS | Encounter Summary ---
Author Organization [facility] Address [address] [place] [address] Care Team Providers Care Ict Sales Assistant Name Role Phone Amanda Hewitt KENNEL STAFF MEMBER Primary Care Provider Encounter Details DateTypeDepartmentCare Team (Latest Contact Info)Icsmsuhsbjm88/15/2025Clinisync Result Encounter [facility] External Department Unsolicited Basim Martinez, DO [address] [facility] [address] [place], [place] [address] Social History Tobacco UseTypesPacks/DayYears UsedDateSmoking Tobacco: FormerCigarettes0.53 Quit: 05/24/2024Smokeless Tobacco: NeverAlcohol UseStandard Drinks/WeekComments Not Currently0 (1 standard drink = 0.6 oz pure alcohol)caffeine: 1-2 cups per day teaPHQ-2AnswerDate RecordedPatient Health Questionnaire-2 Inrdv138 Estimated Date of CfazkkojNpmnnpozXzy14/06/2026ased on Est. Date of ConceptionSex and Gender InformationValueDate RecordedSex Assigned at Yikxsb3101/19/2023 8:10 PM EDTLegal AbmWehpie87/02/2023 9:50 PM EDTGender Identity Knpvkv0301/19/2023 8:10 PM EDTSexual OrientationNot on fileTravel HistoryTravel StartTravel PgdFetdfdg45/22/202511/documented as of this encounter Plan of Treatment DateTypeDepartmentCare Team (Latest Contact Info)Hhuucajdael76/06/2026 9:30 AM EDTOffice Visit [facility] [place] [facility] [address] [place] [address] Darleen Sinclair MD [address] [place] [address] documented as of this encounter Goals GoalPatient Goal TypeAssociated ProblemsRecent ProgressPatient-Stated?Author Reminders Care PlanOB RemindersNoOpen Scheduling, Backgrounddocumented as of this encounter Procedures Procedure NamePriorityDate/TimeAssociated DiagnosisCommentsUS OB BPP W NON-LSAEAJ9904/01/2025 2:43 PM EST documented in this encounter Results * US OB BPP W NON-STRESS (04/01/2025 2:43 PM EST)Anatomical Region LateralityModalityOtherSpecimen (Source)Anatomical Location / Laterality Collection Method / VolumeCollection TimeReceived Time04/01/2025 2:43 PM EST Narrative 04/01/2025 2:45 PM EST [facility] ?[address] ? [place] [address] ? Ultrasound Report ? Signed ? Patient: GUZMAN DEL CID ?MR#: [id number] ?? : 1995 ?Acct:[id number] ?? Age/Sex: 30 / F ?ADM Date: 04/01/25 ?? Loc: US ? Attending Dr: Basim Martinez D.O. ? Ordering Physician: Basim Martinez D.O. ?? Date of Service: 04/01/25 ?? Procedure(s): US OB BPP w non-stress ?? Accession Number(s): [id number] ? cc: Basim Martinez D.O.; AMANDA HEWITT ? [facility] ? [address] ? [place] [address] ? Patient Name: ?? GUZMAN DEL CID ? MRN: [id number] ? date: 1995 ?Sex: F ?? Assigned Patient Location: FBC ?? Current Patient Location: ? Accession/Order Number: [id number] ?? Exam Date: 04/01/2025 ??14:03 ?Report Date: 04/01/2025 ??14:43 ? At the request of: ?? BASIM ??JUAN ??DO ? Procedure: ??US OB BPP w non-stress ? Biophysical profile. ? Reason for exam: Thyroid stimulating hormone deficiency ? COMPARISON: 03/25/2025 ? TECHNIQUE: Transabdominal imaging of the gravid uterus was obtained. ? FINDINGS: The airport refueling handler reports a BPP of 8 out of 8. ??STARR is normal at 14.2 ?? cm. ?? heart rate 130 bpm. ? US/US OB BPP w non-stress ?? IMPRESSION: BPP 8 out of 8. ? Impression dictated by: Sravan Dickinson Jr., D.O. ??04/01/2025 2:43 PM ? Dictation Location: [facility] ? Electronically authenticated by: [id number] ??Y ?? Date: 04/01/2025 ??14:43 ? Dictated By: ?Sravan Dickinson M.D. ? Signed By: ?04/01/255 ? DD/ 1443 ? TD/TT: ? Plant Protection Supervisor: Procedure Note Radiology, Radiologist, MD - 04/01/2025 [place] [address] Ultrasound Report Signed Patient: GUZMAN DEL CID EMR#: [id number] : 1995Acct:[id number] Age/Sex: 30 / FADM Date: 04/01/25 Loc: US Attending Dr: Basim Martinez D.O. Ordering Physician: Basim Martinez D.O. Date of Service: 04/01/25 Procedure(s): US OB BPP w non-stress Accession Number(s): [id number] cc: Basim Martinez D.O.; AMANDA HEWITT [address] [address] Patient Name: GUZMAN DEL CID MRN: [id number]:[id number] date: 1995 Sex: F Assigned Patient Location: [facility] Current Patient Location: Accession/Order Number: [id number] Exam Date: 04/01/2025 14:03 Report Date: 04/01/2025 14:43 At the request of: BASIM MARTINEZ DO Procedure: US OB BPP w non-stress Biophysical profile. Reason for exam: Thyroid stimulating hormone deficiency COMPARISON: 03/25/2025 TECHNIQUE: Transabdominal imaging of the gravid uterus was obtained. FINDINGS: The airport refueling handler reports a BPP of 8 out of 8. STARR is normal at14.2 cm. heart rate 130 bpm. US/US OB BPP w non-stress IMPRESSION: BPP 8 out of 8. Impression dictated by: Sravan Dickinson Jr., D.O. 04/01/2025 2:43 PM Dictation Location: [place] [address] Electronically authenticated by: [id number] Y Date: 4:43 Dictated By: Sravan Dickinson M.D. Signed By:04/01/25 1445 DD/ 42 TD/TT: Plant Protection Supervisor: Authorizing ProviderResult TypeResult StatusCorey Juan DOCLINISYNC IMAGINGFinal Result documented in this encounter Visit Diagnoses Not on filedocumented in this encounter Additional Health Concerns Active ProblemsNoted DateDiagnosed DateOB Wyfbhhzim68/07/2025 documented as of this encounter Care Teams Team MemberRelationshipSpecialtyStart DateEnd Date Amanda Hewitt NP [address] [place] [address] PCP - GeneralFamily Wqcmtfwc30/2/23documented as of this encounter
--- OUTSIDE RECORDS SUMMARY | 2025-04-04 14:02 | XMS_ITS | Encounter Summary ---
Author Organization [facility] Address [address] [place] [address] Care Team Providers Care Welder Plasma Arc Name Role Phone Amanda Ford HEALTH CARE SANITARY TECHNICIAN Primary Care Provider Encounter Details DateTypeDepartmentCare Team (Latest Contact Info)Blghnajiroz58/05/2025Telephone [facility] [address] [place] [address] [place] [address] Kerrie Babcock MA Social History Tobacco UseTypesPacks/DayYears UsedDateSmoking Tobacco: FormerCigarettes0.53 Quit: 05/24/2024Smokeless Tobacco: NeverAlcohol UseStandard Drinks/WeekComments Not Currently0 (1 standard drink = 0.6 oz pure alcohol)caffeine: 1-2 cups per day teaPHQ-2AnswerDate RecordedPatient Health Questionnaire-2 Iwegj224 Estimated Date of MlpuacinZqzmxsfyIzt45/06/2026ased on Est. Date of ConceptionSex and Gender InformationValueDate RecordedSex Assigned at Mhgcgr5501/19/2023 8:10 PM EDTLegal RudAuookk66/02/2023 9:50 PM EDTGender Identity Qhlozv4001/19/2023 8:10 PM EDTSexual OrientationNot on fileTravel HistoryTravel StartTravel OdqGxgpbdh65/22/561090/documented as of this encounter Miscellaneous Notes * [...] Plan of Treatment DateTypeDepartmentCare Team (Latest Contact Info)Qwbzwsetxul00/06/2026 9:30 AM EDTOffice Visit [facility] [address] [place] [address] Darleen Sinclair MD [address] [place] [address] documented as of this encounter Goals GoalPatient Goal TypeAssociated ProblemsRecent ProgressPatient-Stated?Author Reminders Care PlanOB RemindersNoOpen Scheduling, Backgrounddocumented as of this encounter Visit Diagnoses Not on filedocumented in this encounter Additional Health Concerns Active ProblemsNoted DateDiagnosed DateOB Kjdfvzppw64/07/2025 documented as of this encounter Care Teams Team MemberRelationshipSpecialtyStart DateEnd Date Amanda Ford NP [address] [facility] [place] [place] [address] [place] [address] PCP - GeneralFamily Jsikaczl25/2/23documented as of this encounter
--- OUTSIDE RECORDS SUMMARY | 2025-04-04 14:02 | XMS_ITS | Encounter Summary ---
Author Organization [facility] Address [address] [place] [address] Care Team Providers Care Bleach Liquor Maker Name Role Phone Amanda Ford OWNER PROFESSIONAL ENGINEER Primary Care Provider Encounter Details DateTypeDepartmentCare Team (Latest Contact Info)Cgfqlgxxzsa25/05/2025Clinisync Result Encounter [facility] External Department Unsolicited Les Martinez, DO [address] [facility] [address] [place], [place] [id number] Social History Tobacco UseTypesPacks/DayYears UsedDateSmoking Tobacco: FormerCigarettes0.53 Quit: 05/24/2024Smokeless Tobacco: NeverAlcohol UseStandard Drinks/WeekComments Not Currently0 (1 standard drink = 0.6 oz pure alcohol)caffeine: 1-2 cups per day teaPHQ-2AnswerDate RecordedPatient Health Questionnaire-2 Whvuu331 Estimated Date of VviivozsOxdpvhwmUoh63/06/2026ased on Est. Date of ConceptionSex and Gender InformationValueDate RecordedSex Assigned at Fcltoz4601/19/2023 8:10 PM EDTLegal FtpOtxegu75/02/2023 9:50 PM EDTGender Identity Bpupma9501/19/2023 8:10 PM EDTSexual OrientationNot on fileTravel HistoryTravel StartTravel VcoMamkgjl64/22/202511/documented as of this encounter Plan of Treatment DateTypeDepartmentCare Team (Latest Contact Info)Rxbcmsdnouh57/06/2026 9:30 AM EDTOffice Visit [facility] [address] [place] [address] Darleen Sinclair MD [address] [place] [address] documented as of this encounter Goals GoalPatient Goal TypeAssociated ProblemsRecent ProgressPatient-Stated?Author Reminders Care PlanOB RemindersNoOpen Scheduling, Backgrounddocumented as of this encounter Procedures Procedure NamePriorityDate/TimeAssociated DiagnosisCommentsTBH UA (CLEAN/CATCH) TOMATO GRADER/MICRO IF IND.Vmybute8403/22/2025 8:50 PM EST documented in this encounter Results * (ABNORMAL) TBH UA (CLEAN/CATCH) TOMATO GRADER/MICRO IF IND. (03/22/2025 8:50 PM EST) ComponentValueRef [...] Result Performing OrganizationAddressCity/State/ZIP CodePhone Number [facility] documented in this encounter Visit Diagnoses Not on filedocumented in this encounter Additional Health Concerns Active ProblemsNoted DateDiagnosed DateOB Fdbpbptev83/07/2025 documented as of this encounter Care Teams Team MemberRelationshipSpecialtyStart DateEnd Date Amanda Ford NP [address] [place] [address] PCP - GeneralFamily Gcwfrxjq42/2/23documented as of this encounter
--- OUTSIDE RECORDS SUMMARY | 2025-04-04 14:02 | XMS_ITS | Encounter Summary ---
Author Organization [facility] Address [address] [place] [address] Care Team Providers Care Primary Grade Teacher Name Role Phone Amanda Ford PROCEDURE TECH Primary Care Provider Encounter Details DateTypeDepartmentCare Team (Latest Contact Info)Ciesjdnzgtt80/09/2025Clinisync Result Encounter [facility] External Department Unsolicited Jojo Ames PA [address] [place] [address] [place], [place] [address] Social History Tobacco UseTypesPacks/DayYears UsedDateSmoking Tobacco: FormerCigarettes0.53 Quit: 05/24/2024Smokeless Tobacco: NeverAlcohol UseStandard Drinks/WeekComments Not Currently0 (1 standard drink = 0.6 oz pure alcohol)caffeine: 1-2 cups per day teaPHQ-2AnswerDate RecordedPatient Health Questionnaire-2 Ssgvn051 Estimated Date of MbmiqinbXsrzgrhtGzt16/06/2026Based on Est. Date of ConceptionSex and Gender InformationValueDate RecordedSex Assigned at Ryutle3401/19/2023 8:10 PM EDTLegal MidJkxwsk90/02/2023 9:50 PM EDTGender Identity Vhapuc7401/19/2023 8:10 PM EDTSexual OrientationNot on fileTravel HistoryTravel StartTravel ZjwSvizfgi40/22/202511/documented as of this encounter Plan of Treatment DateTypeDepartmentCare Team (Latest Contact Info)Zssucttkzfa94/06/2026 9:30 AM EDTOffice Visit [facility] [address] [place] [phone] Darleen Sinclair MD [address] [place] [address] documented as of this encounter Goals GoalPatient Goal TypeAssociated ProblemsRecent ProgressPatient-Stated?Author Reminders Care PlanOB RemindersNoOpen Scheduling, Backgrounddocumented as of this encounter Procedures Procedure NamePriorityDate/TimeAssociated DiagnosisCommentsSTREP GP B CULTURE+FFNVDolilyy85/09/2025 1:49 PM EST documented in this encounter Results * STREP GP B CULTURE+RFLX (03/26/2025 1:49 PM EST)ComponentValueRef RangeTest MethodAnalysis TimePerformed AtPathologist SignatureSTREP GP B CULTURE+RFLX ??Strep Gp B Culture+Rflx TBHSTREP GP B CULTURE+RFLXNegativeTBHSTREP GP B CULTURE+RFLXCenters for Disease Control and Prevention (CDC) andTBHSTREP GP B CULTURE+RFLXAmerican Congress of Obstetricians and GynecologistsTBHSTREP GP B CULTURE+RFLX(ACOG) guidelines for prevention of group BTBHSTREP GP B CULTURE+RFLXstreptococcal (GBS) disease specify co-collection ofTBHSTREP GP B CULTURE+RFLXa vaginal and rectal swab specimen to maximizeTBHSTREP GP B CULTURE+RFLXsensitivity of GBS detection. Per the CDC and ACOG,TBHSTREP GP B CULTURE+RFLXswabbing both the lower vagina and rectumTBHSTREP GP B CULTURE+RFLXsubstantially increases the yield of detectionTBHSTREP GP B CULTURE+RFLXcompared with sampling the vagina alone.TBH STREP GP B CULTURE+RFLXPenicillin G, ampicillin, or cefazolin are indicatedTBH STREP GP B CULTURE+RFLXfor intrapartum prophylaxis of GBSTBHSTREP GP B CULTURE+RFLXcolonization. Reflex susceptibility testing should beTBHSTREP GP B CULTURE+RFLXperformed prior to use of clindamycin only on GBSTBHSTREP GP B CULTURE+RFLXisolates from penicillin-allergic women who areTBHSTREP GP B CULTURE+RFLXconsidered a high risk for anaphylaxis. Treatment withTBHSTREP GP B CULTURE+RFLXvancomycin without additional testing is warranted ifTBHSTREP GP B CULTURE+RFLXresistance to clindamycin is noted.TBHSTREP GP B CULTURE+RFLX Performed at: - [facility]addamTBHSTREP GP B CULTURE+[id number] [place], [place] [address]BEAGXCFH GP B CULTURE+RFLXLab Director: Isaac Dietz PhD, Phone: [phone] (Source)Anatomical Location / Laterality Collection Method / VolumeCollection TimeReceived Time03/26/2025 1:49 PM EST 03/26/2025 7:23 PM EST Narrative [facility] - 03/31/2025 5:07 PM EST Authorizing ProviderResult TypeResult StatusAmy Kwaku PALAB BLOOD ORDERABLES Final ResultPerforming OrganizationAddressCity/State/ZIP CodePhone Number [facility] documented in this encounter Visit Diagnoses Not on filedocumented in this encounter Additional Health Concerns Active ProblemsNoted DateDiagnosed DateOB Rlxrbcgum23/07/2025 documented as of this encounter Care Teams Team MemberRelationshipSpecialtyStart DateEnd Date Amanda Ford NP [address] [facility] [place] [address] PCP - GeneralFamily Oznejhem58/2/23documented as of this encounter
--- OUTSIDE RECORDS SUMMARY | 2025-04-04 14:02 | XMS_ITS | Encounter Summary ---
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 Date of ConceptionSex and Gender InformationValueDate RecordedSex Assigned at Kiwhuh1001/19/2023 8:10 PM EDTLegal RdeCobttr24/02/2023 9:50 PM EDTGender Identity Izwtxi9701/19/2023 8:10 PM EDTSexual OrientationNot on fileTravel HistoryTravel StartTravel CoeGxfaauk36/22/779705/documented as of this encounter Plan of Treatment DateTypeDepartmentCare Team (Latest Contact Info)Tyrnmfnoqsj05/06/2026 9:30 AM EDTOffice Visit [facility] [address] [place] [address] Darleen Sinclair MD [address], [address] [place] [address] documented as of this encounter Goals GoalPatient Goal TypeAssociated ProblemsRecent ProgressPatient-Stated?Author Reminders Care PlanOB RemindersNoOpen Scheduling, Backgrounddocumented as of this encounter Visit Diagnoses Not on filedocumented in this encounter Additional Health Concerns Active ProblemsNoted DateDiagnosed DateOB Zocuuszev13/07/2025 documented as of this encounter Care Teams Team MemberRelationshipSpecialtyStart DateEnd Date Amanda Ford NP [address] [place] [address] [place] [address] PCP - GeneralFamily Aumohoub14/2/23documented as of this encounter
--- OUTSIDE RECORDS SUMMARY | 2025-04-04 14:02 | XMS_ITS | Encounter Summary ---
Author Organization [facility] Address [address] [place] [address] Care Team Providers Care Ventilation Worker Name Role Phone Amanda Ford TAXATION CONSULTANT Primary Care Provider Encounter Details DateTypeDepartmentCare Team (Latest Contact Info)Feyssrfwinj40/16/2025Bamboo flowsheet [facility] [address] [place] [address] Les Martinez DO [address] [facility] [address], [facility] Social History Tobacco UseTypesPacks/DayYears UsedDateSmoking Tobacco: FormerCigarettes0.53 Quit: 05/24/2024Smokeless Tobacco: NeverAlcohol UseStandard Drinks/WeekComments Not Currently0 (1 standard drink = 0.6 oz pure alcohol)caffeine: 1-2 cups per day teaPHQ-2AnswerDate RecordedPatient Health Questionnaire-2 Rlsrt468 Estimated Date of MdfimbwjDqllluhuHyo71/06/2026Based on Est. Date of ConceptionSex and Gender InformationValueDate RecordedSex Assigned at Ykqcjb8201/19/2023 8:10 PM EDTLegal OwjUuwgas80/02/2023 9:50 PM EDTGender Identity Chgkey4501/19/2023 8:10 PM EDTSexual OrientationNot on fileTravel HistoryTravel StartTravel YobKxbhqcr38/22/255891/documented as of this encounter Plan of Treatment DateTypeDepartmentCare Team (Latest Contact Info)Zlzugghejcd51/06/2026 9:30 AM EDTOffice Visit [facility] [address] [place] [address] Darleen Sinclair MD [address] [place] [address] documented as of this encounter Goals GoalPatient Goal TypeAssociated ProblemsRecent ProgressPatient-Stated?Author Reminders Care PlanOB RemindersNoOpen Scheduling, Backgrounddocumented as of this encounter Visit Diagnoses Not on filedocumented in this encounter Additional Health Concerns Active ProblemsNoted DateDiagnosed DateOB Vubwtuljq12/07/2025 documented as of this encounter Care Teams Team MemberRelationshipSpecialtyStart DateEnd Date Amanda Ford NP [address] [place] [address] PCP - GeneralFamily Czvgbxsy86/2/23documented as of this encounter
--- OUTSIDE RECORDS SUMMARY | 2025-04-04 14:02 | XMS_ITS | Clinical Summary ---
Author Organization [facility] Address [address] [facility], [address] [place] [address] Care Team Providers Care Commercial Carpet Installer Name Role Phone Robin Marquez MD Primary Care Provider [phone] Allergies No known active allergies Medications MedicationSigDispense QuantityRefillsLast FilledStart DateEnd DateStatus levothyroxine (SYNTHROID) 175 MCG tablet TAKE 2 TABLETS BY MOUTH ONCE VQKJI583Active ALPRAZolam (XANAX) 0.5 MG tablet TAKE 1 [...] ProblemNoted DateDiagnosed DateRight upper quadrant abdominal pain03/30/2021 Dytvyhnuzky39/13/2021Orthostatic rhswkotfz61/13/2021Obesity (BMI 30-39.9) 02/09/2021Obesity, Class III, BMI 40-49.9 (morbid obesity)11/10/2020hronic low back pain11/10/2020tatus post laparoscopic sleeve mptrzmhiysk52/19/2021Vitamin D kaitykkajp72/27/7893Ntszkdgfuzqccu63/20/2019Bipolar disease, kggohmd7712/05/2018 Plantar fasciitis, yujrknicy13/20/2019Marijuana use12/05/2018 Resolved Problems ProblemNoted DateDiagnosed DateResolved DateMorbid obesity with BMI of 50.0- 59.9, adultMorbid obesity with BMI of 60.0-69.9, adult Family History Medical HistoryRelationNameCommentsHigh Blood PressureFatherOtherMotherOther SisterRelationNameStatusCommentsFatherAlivethyroidMotherAlivethyroidSisterOther thyroid Social History Tobacco UseTypesPacks/DayYears UsedDateSmoking Tobacco: NeverSmokeless Tobacco: NeverAlcohol UseStandard Drinks/WeekCommentsNo0 (1 standard drink = 0.6 oz pure alcohol)CommentsNoSex and Gender InformationValueDate RecordedSex Assigned at BirthNot on fileLegal AkhEtgisv26/26/2015 7:37 PM ESTGender Identity Not on fileSexual OrientationNot on file Last Filed Vital Signs Vital SignReadingTime TakenCommentsBlood Uhhjymsi514/6001/ 2:44 PM EST Traki3071/27/2022 2:44 PM HSBJloizqzbbqp58.7 ??C (98.1 ??F)03/30/2021 5:10 PM ESTRespiratory Qiij7053 5:10 PM ESTOxygen Knfxwlijgg79%03/30/2021 5:10 PM ESTInhaled Oxygen Concentration--Geincw53 kg (205 lb)09/04/2021 9:27 AM EDT Rjpacg353.9 cm (6')09/04/2021 9:27 AM EDTBody Mass Index27.8009/04/2021 9:27 AM EDT Plan of Treatment Not on file Insurance Advance Directives * Full Code (Latest Code Status on File) Date ActivatedDate InactivatedComments05/06/2020 4:42 PM05/08/2020 3:13 PM Care Teams Team MemberRelationshipSpecialtyStart DateEnd Date Robin Marquez MD [address] [id number] PCP - GeneralFamily Medicine10/10/18
--- OUTSIDE RECORDS SUMMARY | 2025-04-04 14:03 | XMS_ITS | Clinical Summary ---
Author Organization [facility] Address [address] [place] [place] [address] Phone Care Team Providers Care Dietary Supervisor Name Role Phone Unavailable Primary Care Provider Unavailabl e Social History Tobacco UseTypesPacks/DayYears UsedDateSmoking Tobacco: Never Assessed CommentsUnknownSex and Gender InformationValueDate RecordedSex Assigned at Not on fileLegal HmdSxiwjr51/26/2024 8:23 AM EDTGender IdentityNot on fileSexual OrientationNot on file Plan of Treatment Health MaintenanceDue DateLast DoneCommentsHIV Qyevbitvq1995Lipid Panel 1995TSH Level1995MMR Vaccines (1 of 1 - Standard series)1996 Hepatitis C Bmwwxfawk77/17/2013Hepatitis B Vaccines (1 of 3 - 19+ 3-dose series) 2014HPV/Oevert2003/04/2016HPV Vaccines (1 - 3-dose standard series) 2022Influenza Vaccine (#1)5COVID-19 Vaccine (3 - 2024- season) 505/07/2020, 07/22/2020Yearly Adult Swkevvsk59/07/2023 Cervical Cancer Blhguzier91/04/2027Pap Smear/TaP/Tdap/Td Vaccines (2 - Td or Tdap)/12/2022Zoster [...]
--- OUTSIDE RECORDS SUMMARY | 2025-04-04 14:03 | XMS_ITS | Clinical Summary ---
Author Organization [facility] Address [address] [place] [address] Care Team Providers Care Oyster Tonger Name Role Phone Amanda Ford TUBERCULOSIS SPECIALIST Primary Care Provider Allergies Active AllergyReactionsCriticalityNoted PtpvWrxfxvdfTtnvtyCnbmisjAaei06/02/2023 Patient had gastric bypass surgery in April [...] 18 g 6Active Active Problems ProblemNoted DateDiagnosed DateConceived by in vitro awunbonpeqard67/16/2025 Thyroid oyavwjf0203/06/2025H/O gastric vdbpuz323 weeks gestation of ([facility])03/06/2025Third trimester ([facility])03/06/2025 Gmchofhjbjl99/12/2024Estimated Date of TihcdwiwQxyvzzogQzv15/06/2026 Based on Est. Date of Conception Encounters DateTypeDepartmentCare FlneZcgiwnxaeig62/16/2025 10:00 AM ESTRoutine [facility] [place] [address] Basim Martinez, DO Third trimester ([facility]); 37 weeks gestation of ([facility]); Conceived by in vitro fertilization; Thyroid disease; H/O gastric sleeve; H/O iron deficiency ijmjvt5104/02/2025bstract [facility] [address] [place] [address] Basim Martinez DO 5Bamboo flowsheet [facility] [address] [place] [address] Basim Martinez DO 5Clinisync Result Encounter NOM[facility] External Department Unsolicited Basim Martinez DO 04/01/20253947Zcnbzy02/09/2025 1:50 PM ESTRoutine [facility] [address] [place] [address] Jojo Ames PA 36 weeks gestation of ([facility]); Third trimester ([facility]); H/O gastric sleeve; Thyroid dchxbjb7303/26/2025linisync Result Encounter [facility]OM[facility] External Department Unsolicited Jojo Ames PA 03/26/2025amboo flowsheet [facility] [address] [address] Jojo Ames PA 03/25/2025linisync Result Encounter NOMS External Department Unsolicited Basim Martinez, DO 03/22/2025linisync Result Encounter NOMS External Department Unsolicited Basim Martinez, DO 03/22/2025Telephone [facility] [address] [place] [address] Kerrie Babcock [place] 03/21/2025linisync Result Encounter NOM[facility] External Department Unsolicited Basim Martinez, DO 03/20/20250932Rszzye55/03/2025Telephone [facility] [address] [place] [address] Kerrie Babcock [place] 03/19/2025 11:00 AM ESTRoutine [facility] [address] [place] [address] Bsaim Martinez, DO 35 weeks gestation of ([facility]); Third trimester ([facility]); H/O gastric sleeve; Thyroid disease; Sore throat; Upper respiratory tract infection, unspecified type03/19/2025amboo flowsheet [facility] [address] [place] [address] Basim Martinez, DO 03/18/2025linisync Result Encounter NOMS External Department Unsolicited Basim Martinez, DO 03/12/2025Patient Outreach [facility] [address] [place] [address] Jojo Be LPN 03/12/20253918Qtfbvz97/19/2025bstract [facility] [address] [place] [address] Basim Martinez, DO 03/05/2025 2:20 PM ESTRoutine [facility] [address] [place] [address] Jojo Ames PA Third trimester ([facility]); 33 weeks gestation of ([facility]); Thyroid disease; H/O gastric toadob7303/05/2025Telephone [facility] [address] [address] Marsha Asif MA 03/05/2025External Result Encounter [facility] [address] [place] [address] Basim Martinez, DO 03/05/20259006Llblaa00/18/2025Bamboo flowsheet [facility] [address] [place] [address] Jojo Ames PA 2025linisync Result Encounter NOM[facility] External Department Unsolicited Basim Martinez, DO 03/04/20250258Idjqdr19/11/2025linisync Result Encounter NOM[facility] External Department Unsolicited Basim Martinez, DO 02/19/2025 1:00 PM ESTRoutine [facility] [address] [place] [address] Basim Martinez, DO Third trimester ([facility]); 31 weeks gestation of ([facility]); TSH (thyroid-stimulating hormone deficiency); H/O gastric wzzvpq1102/19/2025linisync Result Encounter [facility]OM[facility] External Department Unsolicited Basim Martinez, DO 5Bamboo flowsheet [facility] [address] [place] [address] Basim Martinez, 02/12/2025bstract [facility] [address] [place] [address] Jojo Be LPN 02/12/20256779Felqtg47/24/2025Patient Outreach [facility] [address] [place] [address] Jojo Be LPN 02/08/2025bstract [facility] [address] [place] [address] Kerrie Babcock MA 02/07/2025bstract [facility] [address] [place] [address] Basim Martinez DO 02/06/2025 2:30 PM EDTRoutine [facility] [address] [place] [address] Jojo Ames PA Third trimester ([facility]); 29 weeks gestation of ([facility])02/06/2025amboo flowsheet [facility] [address] [place] [address] Jojo Ames PA 01/31/2025bstract [facility] [address] [place] [address] Basim Martinez 01/30/2025 2:30 PM EDTAncillary Procedure [facility] [address] [place] [address] TSH (thyroid-stimulating hormone deficiency)01/30/20258545Frzdhs37/06/2025Telephone [facility] [address] [place] [address] Marsha Asif MA 01/16/2025 11:20 AM EDTRoutine [facility] [address] [address] Mima Duenas, TY 26 weeks gestation of ([facility]); Second trimester ([facility]); TSH (thyroid-stimulating hormone deficiency)5Bamboo flowsheet [facility] [address] [place] [address] Mima Duenas, TY 5Clinisync Result Encounter [facility]OM[facility] External Department Unsolicited Basim Martinez, 01/11/2025Telephone [facility] [address] [place] [address] Basim Martinez, 01/10/2025Telephone [facility] [address] [place] [address] Jojo Ames PA 5Clinisync Result Encounter NOM[facility] External Department Unsolicited Jojo Ames PA 01/08/2025Telephone [facility] [address] [address] Jojo Ames PA 5Abstract [facility] [address] [place] [address] Basim Martinez, from Last 3 Months Immunizations ImmunizationAdministration DatesNext BinJhxu1212/25/2022 Family History Medical HistoryRelationNameCommentsDiabetesFatherGreg spearsHypertensionFather Delbert spearsThyroid diseaseFatherGreg spearsObesityMotherMary spearsSkin cancer MotherMary spearsThyroid diseaseMotherMary spearsDiabetesPaternal Grandfather Ayaan FristevanRelationNameStatusCommentsFatherGreg spearsAliveMotherMary nunez AlivePaternal GrandfatherLarry FritzSisterAlive Social History Tobacco UseTypesPacks/DayYears UsedDateSmoking Tobacco: FormerCigarettes0.53 Quit: 05/24/2024Smokeless Tobacco: Never Tobacco Cessation:Counseling Given: Not Answered Alcohol UseStandard Drinks/WeekCommentsNot Currently0 (1 standard drink = 0.6 oz pure alcohol)caffeine: 1-2 cups per day teaPHQ-2AnswerDate RecordedPatient Health Questionnaire-2 Voldp993Estimated Date of Delivery BgognuweUrs52/06/2026ased on Est. Date of ConceptionSex and Gender Information ValueDate RecordedSex Assigned at IninsPenccy91/04/2023 8:10 PM EDTLegal Sex Uglqrp9801/17/2023 9:50 PM EDTGender MiojngiyJroeiv14/04/2023 8:10 PM EDTSexual OrientationNot on fileTravel HistoryTravel StartTravel CkeKrnmrud58/22/2025 03/16/2025 Last Filed Vital Signs Vital SignReadingTime TakenCommentsBlood Jvgzbbsk930/7612 10:43 AM EST Dxnns186408/22/2024 10:04 AM EDTTemperature--Respiratory Rdxo735208/22/2024 10:04 AM EDTOxygen Nffelorwok27%08/22/2024 10:04 AM EDTInhaled Oxygen Concentration-- Lwjzwk955 kg (302 lb)04/02/2025 10:43 AM DHBAdaqjo798.3 cm (5' 11 )08/22/2024 10:04 AM EDTBody Mass Index42.12008/22/2024 10:04 AM EDT Plan of Treatment DateTypeDepartmentCare Team (Latest Contact Info)Aqenwrbfchg05/06/2026 9:30 AM EDTOffice Visit [facility] [place] [facility] [address] [place] [address] Darleen Sinclair MD [address] [place] [address] Health MaintenanceDue DateLast DoneCommentsCOVID-19 Vaccine ( season) /07/2020, 07/22/2020Influenza Vaccine (#1)2024HPV/Cotest /, 10/28/2020, 10/16/2018Cervical Cancer Bmrukznyv52/04/2027 Pap Smear, 11/02/2021neumococcal Vaccine: Pediatrics (0 to 5 Years) and At-Risk Patients (6 to 64 Years)Aged OutNo longer eligible based on patient's age to complete this topic Goals GoalPatient Goal TypeAssociated ProblemsRecent ProgressPatient-Stated?Author Reminders Care PlanOB RemindersNoOpen Scheduling, Background Procedures Procedure NamePriorityDate/TimeAssociated DiagnosisCommentsPOCT URINALYSIS FYZHBYVNTqswkga91/16/2025 10:44 AM EST Third trimester ([facility]) US OB BPP W NON-YIXVKP2304/01/2025 2:43 PM EST POCT URINALYSIS GDVROPSDZgxtgke89/09/2025 2:08 PM EST 36 weeks gestation of ([facility]) Third trimester ([facility]) STREP GP B CULTURE+ANZVIaxmiqv84/09/2025 1:49 PM EST US OB BPP W NON-ILRWII2103/25/2025 4:30 PM EST [facility] UA (CLEAN/CATCH) AIRPLANE PILOT PHOTOGRAMMETRY/MICRO IF IND.Ddxebak6703/22/2025 8:50 PM EST US OB BPP W NON-XHYFQO3703/21/2025 3:52 PM EST POCT URINALYSIS NJWWEEUZGtezyde31/02/2025 11:25 AM EST 35 weeks gestation of ([facility]) Third trimester ([facility]) US OB BPP W NON-EHLABY3203/18/2025 4:09 PM EST US OB 14+ WEEKS ANATOMY SCAN03/05/2025 3:47 PM EST POCT URINALYSIS XRAXUXDELsqcqkd35/18/2025 2:41 PM EST 33 weeks gestation of ([facility]) US OB BPP W NON-SMYOSF2603/04/2025 9:40 PM EST US OB BPP W NON-LIDGLF4002/26/2025 8:30 AM EST ALL THYROID STIM MCRHBOSShttmie69/04/2025 2:18 PM EST POCT URINALYSIS KYMXHFBNPaczauy90/04/2025 1:26 PM EST Third trimester ([facility]) POCT URINALYSIS JIBWGOKPCxyzvuw84/22/2025 2:49 PM EDT 29 weeks gestation of ([facility]) US OB FOLLOW UP TRANSABDOMINAL ZMMLCBNWQgmqijh40/15/2025 3:10 PM EDT TSH (thyroid-stimulating hormone deficiency) POCT URINALYSIS HIRHGRSJCuwpidw55/01/2025 11:40 AM EDT 26 weeks gestation of ([facility]) ALL THYROID STIM UMJVKYMUsffqet16/26/2025 2:48 PM EDT GLUCOSE 1 HGJKMqdelwk82/24/2025 12:00 PM EDT ALL CBC WITH AUTO VMZPEhkfezf39/24/2025 12:00 PM EDT PAP VJNQOLxiipyz2024 12:00 AM ESTTHINPREP TIS PAP REFLEX HPV MRNA E6/E7 (79579)Toymrlg1411/03/2021 from Last 3 Months or Most Recently Relevant to Health Maintenance Results * POCT urinalysis dipstick manually resulted (04/02/2025 10:44 AM EST) Only the most recent of7 resultswithin the time period is included. ComponentValueRef [...] Location / LateralityCollection Method / VolumeCollection TimeReceived DskkFqjts02/16/2025 10:44 AM EST Narrative Authorizing ProviderResult TypeResult StatusCorey Juan DOPOINT OF CARE TEST ENTER/EDIT ORDERABLESFinal Result * US OB BPP W NON-STRESS (04/01/2025 2:43 PM EST) Only the most recent of6 resultswithin the time period is included. Anatomical RegionLateralityModalityOtherSpecimen (Source)Anatomical Location / LateralityCollection Method / VolumeCollection TimeReceived Time04/01/2025 2:43 PM EST Narrative 04/01/2025 2:45 PM EST [facility] ?[address] ? [place] [address] ? Ultrasound Report ? Signed ? Patient: GUZMAN DEL CID Colt ?MR#: [id number] ?? : 1995 ?Acct:[id number] ?? Age/Sex: 30 / F ?ADM Date: 04/01/25 ?? Loc: US ? Attending Dr: Basim Martinez D.O. ? Ordering Physician: Basim Martinez D.O. ?? Date of Service: 04/01/25 ?? Procedure(s): US OB BPP w non-stress ?? Accession Number(s): [id number] ? cc: Basim Martinez D.O.; AMANDA FORD ? [facility] ? [address] ? [place] [address] ? Patient Name: ?? GUZMAN DEL CID ? MRN: [facility]:[id number] ? date: 1995 ?Sex: F ?? Assigned Patient Location: [facility] ?? Current Patient Location: ? Accession/Order Number: [id number] ?? Exam Date: 04/01/2025 ??14:03 ?Report Date: 04/01/2025 ??14:43 ? At the request of: ?? BASIM ??JUAN ??DO ? Procedure: ??US OB BPP w non-stress ? Biophysical profile. ? Reason for exam: Thyroid stimulating hormone deficiency ? COMPARISON: 03/25/2025 ? TECHNIQUE: Transabdominal imaging of the gravid uterus was obtained. ? FINDINGS: The lens grinder and polisher reports a BPP of 8 out of 8. ??STARR is normal at 14.2 ?? cm. ?? heart rate 130 bpm. ? US/US OB BPP w non-stress ?? IMPRESSION: BPP 8 out of 8. ? Impression dictated by: Sravan Dickinson Jr., D.ORenae ??04/01/2025 2:43 PM ? Dictation Location: RADIO-PC-22 ? Electronically authenticated by: [id number] ??Y ?? Date: 04/01/2025 ??14:43 ? Dictated By: ?Sravan Dickinson M.D. ? Signed By: ?04/01/25 1445 ? DD/ 1443 ? TD/TT: ? Brass Molder: Procedure Note Radiology, Radiologist, MD - 04/01/2025 [place] [address] Ultrasound Report Signed Patient: GUZMAN DEL CID EMR#: [id number] : 1995Acct:[id number] Age/Sex: 30 / FADM Date: 04/01/25 Loc: US Attending Dr: Basim Martinez D.O. Ordering Physician: Basim Martinez D.O. Date of Service: 04/01/25 Procedure(s): US OB BPP w non-stress Accession Number(s): [id number] cc: Basim Martinez D.O.; AMANDA FORD [place] [id number] Patient Name: GUZMAN DEL CID MRN: [facility]:[id number] date: 1995 Sex: F Assigned Patient Location: [facility] Current Patient Location: Accession/Order Number: [id number] Exam Date: 04/01/2025 14:03 Report Date: 04/01/2025 14:43 At the request of: BASIM MARTINEZ DO Procedure: US OB BPP w non-stress Biophysical profile. Reason for exam: Thyroid stimulating hormone deficiency COMPARISON: 03/25/2025 TECHNIQUE: Transabdominal imaging of the gravid uterus was obtained. FINDINGS: The lens grinder and polisher reports a BPP of 8 out of 8. STARR is normal at14.2 cm. heart rate 130 bpm. US/US OB BPP w non-stress IMPRESSION: BPP 8 out of 8. Impression dictated by: Sravan Dickinson Jr., D.O. 04/01/2025 2:43 PM Dictation Location: [place] [address] Electronically authenticated by: [id number] Y Date: 4:43 Dictated By: Sravan Dickinson M.D. Signed By:04/01/25 1445 DD/ 144 TD/TT: Brass Molder: Authorizing ProviderResult TypeResult StatusCorey Juan DOCLINISYNC IMAGINGFinal Result * STREP GP B CULTURE+RFLX (03/26/2025 1:49 [...] noted.TBHSTREP GP B CULTURE+RFLX Performed at: - [facility]TBHSTREP GP B CULTURE+[id number] [place], [place] [id number] GP B CULTURE+RFLXLab Director: Isaac Dietz PhD, Phone: [phone] (Source)Anatomical Location / Laterality Collection Method / VolumeCollection TimeReceived Time03/26/2025 1:49 PM EST 03/26/2025 7:23 PM EST Narrative [facility] - 03/31/2025 5:07 PM EST Authorizing ProviderResult TypeResult StatusAmy [facility] BLOOD ORDERABLES Final ResultPerforming OrganizationAddressCity/State/ZIP CodePhone Number [facility] * (ABNORMAL) [facility] UA (CLEAN/CATCH) AIRPLANE PILOT PHOTOGRAMMETRY/MICRO IF IND. (03/22/2025 8:50 PM EST) ComponentValueRef [...] 03/22/2025 9:28 PM EST Authorizing ProviderResult TypeResult StatusCorechip Martinez DOCLINISYNCFinal Result Performing OrganizationAddressCity/State/ZIP CodePhone Number JEREMY [facility] * US OB 14+ weeks anatomy scan (03/05/2025 3:47 PM EST)Anatomical Region LateralityModalityBodyUltrasoundSpecimen (Source)Anatomical Location / LateralityCollection Method / VolumeCollection TimeReceived Time03/05/2025 3:47 PM EST Narrative 03/05/2025 3:47 PM EST THIS EXAM WAS PERFORMED AT [facility] NAME: ??MARIA EUGENIA HINDS : 1995 SEX: F Accession Number: [id number] ORDERING PHYSICIAN: BASIM MARTINEZ REFERRING PHYSICIAN: BASIM MARTINEZ Coding Procedures ? [address]0813: Ultrasound, uterus, real time with image documentation, follow up,transabdominal ? approach per fetus Indication resulting from assisted reproductive technology- IUI, History of Gastric sleeve, Obesity in . History OB History ? 1. Para 0 ? [id number] Current Cell free DNA ?low risk analysis [...] (oz) ? 11 oz EFW by: ?Hadlock (RNA-ER-RB-FL) Extended Tibia ??54.8 mm 32w 2d 47% Gayle Dynamometer Tuner ? 4.4 mm Head / Face / [...] MVP measures 7.3 cm. Recommendations Please see [facility] recommendations from prior clinical and/or ultrasound report documentation. Subsequent follow up or other follow up as clinically determined by primary OB provider unless otherwise specified by [facility]. Results forwarded to ordering provider so they can follow up with the patient as necessary. Procedure Note Radiology, Radiologist, MD - 03/05/2025 THIS EXAM WAS PERFORMED AT [facility] NAME: MARIA EUGENIA HINDS : 1995 SEX: F Accession Number: [id number] ORDERING PHYSICIAN: BASIM MARTINEZ REFERRING PHYSICIAN: BASIM MARTINEZ Coding Procedures 49633: Ultrasound, uterus, real time with image documentation, follow up, transabdominal approach per fetus Indication resulting from assisted reproductive technology- IUI, History of Gastric sleeve, Obesity in . History OB History 1. Para 0 [id number] Current Cell free DNA low risk analysis [...] EFW (oz) 11 oz EFW by: Hadlock (LDJ-VL-IS-FL) Extended Tibia 54.8 mm 32w 2d 47% Gayle Dynamometer Tuner 4.4 mm Head / Face / Neck [...] MVP measures 7.3 cm. Recommendations Please see [facility] recommendations from prior clinical and/or ultrasoundreport documentation. Subsequent follow up or other follow up as clinically determined byprimary OB provider unless otherwise specified by [facility]. Results forwarded to ordering provider so they [...] DOCLINISYNCFinal Result Performing OrganizationAddressCity/State/ZIP CodePhone Number JEREMY [facility] * OB follow up transabdominal approach [...] Olivo MD Authorizing ProviderResult TypeResult StatusMima Duenas NPIM OB US PROCEDURESFinal Result * GLUCOSE 1 HOUR (01/09/2025 12:00 PM EDT)ComponentValueRef RangeTest Method Analysis TimePerformed AtPathologist SignatureGLUCOSE 1 AHCG977<130 mg/dLTBH Specimen (Source)Anatomical Location / LateralityCollection Method [...] 35.2 g/dLTBHTBH RDW13.211.0 - 15.0 % TBHTBH SLQ447960 - 450 10 3/uLTBHTBH MPV8.7(L)9.5 - 13.5 [...] 12:31 PM EDT Authorizing ProviderResult TypeResult StatusAmy Lanark PACLINISYNCFinal Result Performing OrganizationAddressCity/State/ZIP CodePhone Number [facility] * Pap Smear (02/20/2024 12:00 AM EST)Specimen (Source)Anatomical Location / LateralityCollection Method / VolumeCollection TimeReceived TimeSwabCervical swab / Unknown Narrative Authorizing ProviderResult TypeResult StatusCorey Juan DOLAB CYTOLOGY ORDERABLESFinal ResultPerforming OrganizationAddressCity/State/ZIP CodePhone Number EXTERNAL LAB * THINPREP TIS PAP REFLEX HPV MRNA E6/E7 (45483) (11/03/2021)ComponentValueRef RangeTest MethodAnalysis TimePerformed AtPathologist SignatureCLINICAL INFORMATION:None givenNOMS LEGACY EXTERNAL LABLMP:None givenN[facility]S LEGACY EXTERNAL LABPREV. PAP:None givenN[facility] LEGACY EXTERNAL LABPREV. BX:None given [facility] EXTER[facility] LABSOURCE:Cervix, EndocervixNOMS [facility]GAC[facility]TERNAL LAB STATEMENT OF ADEQUACY:SEE COMMENTNOVA LEGACY EXTERNAL LABComment: Satisfactory for evaluation. Endocervical/transformation zone component present. INTERPRETATION/RESULT:Negative for intraepithelial lesion or malignancy.[facility] EXTERNAL LABCOMMENT:This Pap test has been evaluated with computer assisted technology.[facility] LEGACY EXTERNAL LABCYTOTECHNOLOGIST:SEE COMMENTNOVA LEGACY EXTERNAL LABComment: [place], CT(ASCP) CT screening location: [place] [address]. COMMENTSEE COMMENTNOVA LEGACY EXTERNAL LABComment: EXPLANATORY NOTE: The Pap [...] INCORRECT, PLEASE CONTACT CLIENT SERVICES. PHONE NUMBER: [phone] Specimen (Source)Anatomical Location / LateralityCollection Method / Volume Collection TimeReceived Time11/03/2021 Narrative Authorizing ProviderResult TypeResult StatusMona Adama Nataprawi DOECW LABSFinal ResultPerforming OrganizationAddressCity/State/ZIP CodePhone Number [facility] from Last 3 Months or Most Recently Relevant to Health Maintenance Additional Health Concerns Active ProblemsNoted DateDiagnosed DateOB Cafsuohdn73/07/2025 Insurance Care Teams Team MemberRelationshipSpecialtyStart DateEnd Date Amanda Ford NP [facility] [place] [address] PCP - GeneralFamily Rfkvkxgk88/2/23
--- OUTSIDE RECORDS SUMMARY | 2025-04-04 14:03 | XMS_ITS | Patient Health Record ---
Author Organization [facility] Address [address] [place] [address] Care Team Providers Care Continuous Drier Operator Name Role Phone Tabitha Zamora Primary Care Provider [phone] Jennifer Hahn Unavailable [phone] Julieta Jefferson Unavailable [phone] Allergies No Known Allergies Reason For Referral [...] MG Capsule1 capsule with food Orally at prdlxiu567- 200 caloriesNot-Taking/PRNlamoTRIgine 200 MG Tablet1 tablet Orally [...] a drink containing alcohol in the past year?HfCnavqe4JlbcihpdsicottUcpdvgar Problems Problem Type SNOMED Code ICD Code Onset Dates Problem Status W/U Status Risk Notes Problem 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 (129234563) 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) ActiveconfirmedProblemAnxiety state (421715633)Anxiety state, unspecified (F41.1)ActiveconfirmedProblemLong-term current use of drug therapy (960698772) High risk medications (not anticoagulants) long-term use (Z79.899)Active confirmedProblemBipolar affective disorder, currently manic, mild (513299473) Bipolar disorder, current episode manic without psychotic features, mild (F31.11)Activeconfirmed Vital Signs Heart Rate 84 /min 10/24/2024 Tayhyzbp66 %10/24/2024lood pressure wstsocdqx39 mm Hg10/24/20247922Qfaksv00 in 10/24/2024lood pressure zogryzvl059 mm Hg10/24/20243045Whsmwb071.2 lbs10/24/2024MI 30.43 kg/m210/24/2024 Encounters Encounter Location Date Provider Diagnosis [facility] [address] [place] [address] 05/10/2024 Julieta Jefferson Bipolar disorder, current episode manic without psychotic features, mild F31.11 and Anxiety state, unspecified F41.1 [facility] [address] [place] [address] 05/24/2024 Julieta Jefferson Bipolar disorder, current episode manic without psychotic features, mild F31.11 [facility] [address] [place] [address] 01/07/2025 Julieta Jefferson Bipolar disorder, current episode manic without psychotic features, mild F31.11 [facility] [address] [place] [address] 03/05/2025 Tabitha Zamora Bipolar disorder, current episode manic without psychotic features, mild F31.11 [facility] [address] [facility] [address] 03/28/2025 Tabithamichela Zamora [facility] [facility] [address]/11/2024Julieta Jefferson Bipolar disorder, current episode manic without psychotic features, mild F31.11 and Anxiety state, unspecified [facility] [place] [place] [address]/5Christy CoxBipolar disorder, current episode manic without psychotic features, mild F31.11 and Anxiety state, unspecified F41.1[facility] [place] [address]/5Christy CoxBipolar disorder, current episode manic without psychotic features, mild F31.11[facility] [place] [place] [address]/5Christy CoxBipolar disorder, current episode manic without psychotic [...] - F31.11) cont current treatment transfer to [facility] . . Informed consent obtained: [...] Of Treatment Next Appt Details Provider Name:Tabitha Mayfield Concepcion levin, 04/19/2025 10:45:00 AM, [address] [place], [address], Provider Name:Tabitha Riley levin, 05/03/2025 08:30:00 AM, [address] [place], [address], Insurance Providers Payer Name Payer Address Payer Phone Subscriber Number Group Number Insured Name Patient Relationship to Insured Coverage Start Date Coverage End Date [facility] [address] [place] [address] [id number] Aysha DEL CID - patient is the [id number]/19/2022 [facility] [address] [place] [id number], HEATHERSelf - patient is the [id number]/19/20[facility] [address] [place] [id number] - patient is the [id number] [employer]-termed 05/18/22[address] [place] [id number], BRYANColemalcom - patient is the [id number] MEDICAID CFC after [employer]- termed 05/18/22 [address] [place] [id number] MARIA EUGENIA BRYANColemalcom - patient is the [id number] Medical (General) History Medical History History ICD Code obesity bipolarhypothyroidSurgical History Surgery Date(Month/Year) cholecystectomy gastric IUGVSW41/2021
--- OUTSIDE RECORDS SUMMARY | 2025-04-04 14:03 | XMS_ITS | Patient Health Record ---
Author Organization [facility] [place] Address [address] [place] [address] Care Team Providers Care Histologist Technologist Name Role Phone Robin Marquez MD Primary Care Provider Unavail able Reason For Referral No Information Plan Of Treatment No Information
[2025-04-04 14:04] VITALS: BP 137/74; PULSE 62
--- OUTSIDE RECORDS SUMMARY | 2025-04-04 14:04 | XMS_ITS | Clinical Summary ---
Author Organization [facility] Address [facility] [address] [place] [address] Care Team Providers Care Criminalist Technician Name Role Phone No Pcp, No Pcp Primary Care Provider Unavailabl e Allergies Active AllergyReactionsCriticalityNoted DateCommentsNsaids (Non-Steroidal Anti- Inflammatory Drug)10/26/2024 Medications MedicationSigDispense QuantityRefillsLast FilledStart DateEnd DateStatus at812-jzhl-vooku acid ( 19) 29 mg iron- 1 [...] 400 mg tablet Indications: headache in second trimesterTAKE 1 TABLET BY MOUTH TWICE DAILY (MORNING AND BEFORE BED) 60 tablet ctive magnesium oxide (MAGOX) 400 mg tablet Indications: headache in second trimesterTake 1 tablet (400 mg total) by mouth in the morning and 1 tablet (400 mg total) before bedtime. 120 tablet Discontinued Active Problems ProblemNoted DateDiagnosed DatePrevious gastric bypass affecting , gvmwqjqtza35/20/2025Pregnancy headache in second /20/2025 Hypothyroidism affecting in second gmnetineq63/20/2025ipolar disease during in second lipycnxsk92/20/2025Estimated Date of Delivery LgmvddtsMam38/06/2026ased on Other Basis, IUI conception date 07/31/2024 Encounters DateTypeDepartmentCare RtjbDgkxopgwrdh32/11/2025Refill Maternal- Medicine at [facility] [address] [place] [address] Latricia Garcia MD headache in second lhergmfeq28/18/2025 11:12 AM EST - 03/05/2025 11:59 PM ESTHospital Encounter [facility] [address] [place] [address] Hypothyroidism affecting in second trimester; headache in second trimester; Previous gastric bypass affecting , antepartum; Bipolar disease during in second trimester ([facility] Discharge Disposition: Home03/04/20254031Ruetgr78/23/2025Orders Only [facility] 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 Director Of Medical Staff Services - [place] [address] [phone] Roslyn Griffin RN Hypothyroidism affecting in second trimester (Primary Dx); headache in second trimester; Previous gastric bypass affecting , antepartum; Bipolar disease during in second trimester ([facility])02/07/2025Travel 01/04/2025Orders Only Maternal- Medicine at [facility] [address] [place] [address] Krystyna Dick RN Previous gastric bypass affecting , antepartum (Primary Dx); Hypothyroidism affecting in second trimester; Bipolar disease during in second trimester (CMS-HCC); Obesity affecting in second trimester, unspecified obesity type 01/03/2025Telephone Maternal Medicine [place] [address] [facility] [address] [place] [address] Roslyn Griffin RN 01/03/2025Travelfrom Last 3 Months Family History Medical HistoryRelationNameCommentsDiabetesFatherHypertensionFatherThyroid diseaseFatherDiabetesMaternal GrandfatherDepressionMotherObesityMotherSkin cancerMotherThyroid diseaseMotherRelationNameStatusCommentsFatherMaternal GrandfatherMotherPaternal Grandfather Social History Tobacco UseTypesPacks/DayYears UsedDateSmoking Tobacco: FormerCigarettes2 Started: 2023Smokeless Tobacco: Never Tobacco Cessation:Counseling Given: Not Answered Alcohol UseStandard Drinks/WeekCommentsNot Currently0 (1 standard drink = 0.6 oz pure alcohol)ChildcareAnswerDate JyqxwncmUgrrhailiLpfrxur43/02/2021mployment AnswerDate SsqbyetuIdtfmotmgzKtttnyg41/02/2021Hunger ScreeningAnswerDate RecordedWithin the past 12 months we worried whether our food would run out before we got money to buy more.Never True12/05/2024Within the past 12 months the food we bought just didn't last and we didn't have money to get more.Never True12/05/2024Purpose - LifeAnswerDate RecordedPurpose and direction in life Zwsxqny56/02/2021Estimated Date of PtutaizpGgcocqfaXce34/06/2026Based on Other Basis, IUI conception date 07/31/2024Sex and Gender InformationValueDate RecordedSex Assigned at BirthNot on fileLegal ApuMcfujo49/06/2015 12:10 PM EDT Gender IdentityNot on fileSexual OrientationNot on file Last Filed Vital Signs Vital SignReadingTime TakenCommentsBlood Jyxfgncv58/6208 12:46 PM EDT Sbgox340312/05/2024 12:46 PM EDTTemperature--Respiratory Rate--Oxygen Saturation-- Inhaled Oxygen Concentration--Cjygae746.6 kg (257 lb)12/05/2024 12:46 PM EDT Bmvqyb743.3 cm (5' 11 )12/05/2024 12:46 PM EDTBody Mass Index35.8412/05/2024 12:46 PM EDT Plan of Treatment Health MaintenanceDue DateLast DoneCommentsDepression Ofhnzjoqc75/17/2007dult BMI Follow Up Plan2013Pap Smear2016COVID-19 Vaccine ( season)/07/2020, 07/22/2020Influenza Rqwvhiz76/ Adult BMI Joasascrp17Tobacco Glryxdddl06 DTaP,Tdap and Td Vaccines (9 - Td or Tdap)/02/2025, 12/25/2022, 03/03/2009, Additional history existsRSV ( or age 60+ yrs)Completed 02/26/2025 Medical Devices Not on file Procedures Procedure NamePriorityDate/TimeAssociated DiagnosisCommentsUS [facility] OB FOLLOW-UP, 1 KVUQLWjjzyhx28/18/2025 12:04 PM EST Hypothyroidism affecting in second trimester headache in second trimester Previous gastric bypass affecting , antepartum Bipolar disease during in second trimester ([facility]) [facility] FOLLOW-UP, 1 PHCTLBojfxxo41/23/2025 10:49 AM EDT Previous gastric bypass affecting , antepartum Hypothyroidism affecting in second trimester Bipolar disease during in second trimester ([facility]) Obesity affecting in second trimester, unspecified obesity type [facility] OB FOLLOW-UP, 1 KXXHKMgdzxrf00/18/2025 3:09 PM EDT Previous gastric bypass affecting , antepartum Hypothyroidism affecting in second trimester Bipolar disease during in second trimester ([facility]) Obesity affecting in second trimester, unspecified obesity type Encounter for supervision of resulting from assisted reproductive technology, antepartum from Last 3 Months Results * US MFM OB FOLLOW-UP, 1 FETUS (03/05/2025 12:04 PM EST) Only the most recent of3 resultswithin the time period is included. Anatomical RegionLateralityModalityOB-GYNUltrasoundSpecimen (Source)Anatomical Location / LateralityCollection Method / VolumeCollection TimeReceived Time 03/05/2025 11:31 AM EST Narrative 03/05/2025 3:47 PM EST NAME: ??MARIA EUGENIA HINDS : 1995 SEX: F Accession Number: [id number] ORDERING PHYSICIAN: BASIM MARTINEZ REFERRING PHYSICIAN: BASIM MARTINEZ Coding Procedures ? 97083: Ultrasound, uterus, real time with image documentation, follow up,transabdominal ? approach per fetus Indication resulting from assisted reproductive technology- IUI, History of Gastric sleeve, Obesity in . History OB History ? 1. Para 0 ? R4A2P4O3 Current Cell free DNA ?low risk analysis [...] (oz) ? 11 oz EFW by: ?Hadlock (WBJ-QI-WC-FL) Extended Tibia ??54.8 mm 32w 2d 47% [employer] Driver ? 4.4 mm Head / Face / [...] MVP measures 7.3 cm. Recommendations Please see [facility] recommendations from prior clinical and/or ultrasound report documentation. Subsequent follow up or other follow up as clinically determined by primary OB provider unless otherwise specified by [facility]. Results forwarded to ordering provider so they can follow up with the patient as necessary. Procedure Note Crystal Rahman MD - 03/05/2025 NAME: MARIA EUGENIA HINDS : 1995 SEX: F Accession Number: [id number] ORDERING PHYSICIAN: BASIM MARTINEZ REFERRING PHYSICIAN: BASIM MARTINEZ Coding Procedures 69569: Ultrasound, uterus, real time with image documentation, follow up, transabdominal approach per fetus Indication resulting from assisted reproductive technology- IUI, History of Gastric sleeve, Obesity in . History OB History 1. Para 0 D2N7R8L9 Current Cell free DNA low risk analysis [...] EFW (oz) 11 oz EFW by: Hadlock (TSS-AG-IY-FL) Extended Tibia 54.8 mm 32w 2d 47% [employer] Driver 4.4 mm Head / Face / Neck [...] MVP measures 7.3 cm. Recommendations Please see [facility] recommendations from prior clinical and/or ultrasoundreport documentation. Subsequent follow up or other follow up as clinically determined byprimary OB provider unless otherwise specified by [facility]. Results forwarded to ordering provider so they can follow up with thepatient as necessary. Authorizing ProviderResult TypeResult StatusCorey Deirdre Martinez DOIMG ORDERABLES Final Result from Last 3 Months Insurance Care Teams Team MemberRelationshipSpecialtyStart DateEnd Date No Pcp, No Pcp LUKE Owens [phone] [facility]05/20/20
== END 2025-04-04 14:35 | disposition home or self-care (01) ==
LOC: FBCO 13:57 → FBC 14:01
PROVIDERS: PCP Nurse Practitioner Family; Visit Provider Obstetrics & Gynecology
DX: O99.283 Endocrine, nutritional and metabolic diseases complicating pregnancy, third trimester (principal); Z3A.37 37 weeks gestation of pregnancy
CPT/HCPCS: 59025

== ENCOUNTER 2025-04-07 21:48 | Inpatient (IN) | payer MEDICAID, SELFPAY ==
--- OUTSIDE RECORDS SUMMARY | 2024-04-25 08:30 | XMS_ITS ---
Author Organization [facility] Address [address] [place] [address] Care Team Providers Care General Matcher Name Role Phone Tabitha Zamora Primary Care Provider [phone] Jennifer Hahn Unavailable [phone] Julieta Jefferson [phone] REASON FOR VISIT 3 month f/u Encounters Encounter Location Date Provider Diagnosis [facility] [address] [place] [address] 04/25/2024 Julieta Jefferson Plan Of Treatment Next Appt Details Provider Name:Tabitha levin, 04/19/2025 10:45:00 AM, [address] [place], [address], Provider Name:Tabitha levin, 05/03/2025 08:30:00 AM, [address] [place], [address], Progress Notes * GUZMAN DEL CIDDOB: 5 (30 yo F)Acc No.[id number]:04/25/2024 Behavioral Health Patient: GUZMAN AMES Provider:?Julieta JeffersonDOB:1995???Age:29 Y ???Sex:FemaleDate:04/25/2024Phone:[phone]:[address], [place]-[id number]:Tabitha Zamora Subjective: * Chief Complaints: * 3 month f/u * Electronic signature of Julieta Jefferson , NELIDA, FILING AND POLISHING SUPERVISOR on 04/07/2025 at 09:53 PM EST Sign off status: Pending * Appointment Provider: Adin Jefferson Date: 0 04/25/2024 Generated for Printing/Faxing/eTransmitting on:?04/07/2025 09:53 PM EST
--- OUTSIDE RECORDS SUMMARY | 2024-07-25 05:30 | XMS_ITS ---
Author Organization [facility] es Address [address] [place] [address] Care Team Providers Care Middleware Systems Architect Name Role Phone Tabitha Zamora Primary Care Provider Jennifer Hahn Unavailable [phone] Julieta Jefferson [phone] REASON FOR VISIT 3 month f/u Encounters Encounter Location Date Provider Diagnosis [facility] [address] [place] [address] 07/25/2024 Julieta Jefferson Plan Of Treatment Next Appt Details Provider Name:Tabitha levin, 04/19/2025 10:45:00 AM, [address] [place], [address], Provider Name:Tabitha levin, 05/03/2025 08:30:00 AM, [address] [place], [address], Progress Notes * GUZMAN DEL CIDDOB: 5 (30 yo F)Acc No.[id number]:07/25/2024 Behavioral Health Patient: GUZMAN AMES Provider:?Julieta ReyezB:1995???Age:29 Y ???Sex:FemaleDate:07/25/2024Phone:[phone]:[address], [place] OQ-[id number]:Tabitha Zamora Subjective: * Chief Complaints: * 3 month f/u * Electronic signature of NELIDA Newell, FOOD GENERAL MANAGER on 04/07/2025 at 09:53 PM EST Sign off status: Pending * Appointment Provider: Adin Jefferson Date: 0 07/25/2024 Generated for Printing/Faxing/eTransmitting on:?04/07/2025 09:53 PM EST
--- OUTSIDE RECORDS SUMMARY | 2025-03-26 13:50 | XMS_ITS | Encounter Summary ---
Author Organization [facility] Address [address] [place] [address] Care Team Providers Care Leasing Sales Consultant Name Role Phone Amanda Ford [employer] Primary Care Provider Reason for Visit * ReasonCommentsRoutine Visit Encounter Details DateTypeDepartmentCare Team (Latest Contact Info)Qsfuzrwdsie48/09/2025 1:50 PM ESTRoutine [facility] [address] [place] [address] Jojo Ames PA [address] [facility] [place], [facility] 36 weeks gestation of ([facility]); Third trimester ([facility]); H/O gastric sleeve; Thyroid disease Social History Tobacco UseTypesPacks/DayYears UsedDateSmoking Tobacco: FormerCigarettes0.53 Quit: 05/24/2024Smokeless Tobacco: NeverAlcohol UseStandard Drinks/WeekComments Not Currently0 (1 standard drink = 0.6 oz pure alcohol)caffeine: 1-2 cups per day teaPHQ-2AnswerDate RecordedPatient Health Questionnaire-2 Udzud502 Estimated Date of PhqoodxfTkpvivyqGsi55/06/2026ased on Est. Date of ConceptionSex and Gender InformationValueDate RecordedSex Assigned at Cnakot9301/19/2023 8:10 PM EDTLegal BrhFsilqa32/02/2023 9:50 PM EDTGender Identity Sonzsc6601/19/2023 8:10 PM EDTSexual OrientationNot on fileTravel HistoryTravel StartTravel IsuBjheory97/22/09262705/16/2024documented as of this encounter Last Filed Vital Signs Vital SignReadingTime TakenCommentsBlood Ywbstnrq740/8012 1:59 PM EST Pulse--Temperature--Respiratory Rate--Oxygen Saturation--Inhaled Oxygen Concentration--Wuofga799 kg (305 lb)03/26/2025 1:59 PM ESTHeight--Body Mass [...] gastric sleeve 03/06/2025 33 weeks gestation of ([facility]) 03/06/2025 Third trimester ([facility]) 03/06/2025 Resolved Ambulatory Problems Diagnosis Date Noted [...] nursing note reviewed. Exam conducted with a media librarian present. Vitals: Estimated body mass index is 42.54 kg/m?? as calculated from the following: Height as of 08/22/24: 5' 11 . Weight as of this encounter: 305 lb. BP: 138/80 No LMP recorded. Patient is . Assessment/Plan ICD-10-CM 1. 36 weeks gestation of ([facility]) Z3A.36 POCT urinalysis dipstick manually resulted 2. Third trimester ([facility]) Z34.93 POCT urinalysis dipstick manually resulted CULTURE, [...] Plan of Treatment DateTypeDepartmentCare Team (Latest Contact Info)Uehkubvnplk94/06/2026 9:30 AM EDTOffice Visit [facility] [place] [facility] [address] [place] [address] Darleen Sinclair MD [address] [place] [address] NameTypePriorityAssociated DiagnosesOrder ScheduleCULTURE, GROUP B STREP WITH SUSCEPTIBLITYLabRoutine Third trimester ([facility]) Expected: 03/26/2025, Expires: 03/26/2026documented as of this encounter Goals GoalPatient Goal TypeAssociated ProblemsRecent ProgressPatient-Stated?Author Reminders Care PlanOB RemindersNoOpen Scheduling, Backgrounddocumented as of this encounter Procedures Procedure NamePriorityDate/TimeAssociated DiagnosisCommentsPOCT URINALYSIS ZWCGEZPWRkjxblw25/09/2025 2:08 PM EST 36 weeks gestation of ([facility]) Third trimester ([facility]) documented in this encounter Results * [...] 2:08 PM EST Narrative Authorizing ProviderResult TypeResult StatusFederal Medical Center, DevensOINT OF CARE TEST ENTER/EDIT ORDERABLESFinal Result documented in this encounter Visit Diagnoses Diagnosis 36 weeks gestation of ([facility]) Third trimester ([facility]) state, incidental H/O gastric sleeve Thyroid disease Unspecified disorder of thyroid documented in this encounter Additional Health Concerns Active ProblemsNoted DateDiagnosed DateOB Lypxpxqur81/07/2025 documented as of this encounter Care Teams Team MemberRelationshipSpecialtyStart DateEnd Date Amanda Ford NP [address] [place] [address] PCP - GeneralFamily Ksqamsyk10/2/23documented as of this encounter
--- OUTSIDE RECORDS SUMMARY | 2025-03-29 05:00 | XMS_ITS ---
Author Organization [facility] es Address [address] [place] [address] Care Team Providers Care Caterers Helper Name Role Phone Tabitha Zamora Primary Care Provider [phone] Claudia Hahn Unavailable [phone] REASON FOR VISIT FHAEEM FROM CLAUDIA Encounters Encounter Location Date Provider Diagnosis [facility] [address] [place] [address] 03/29/2025 Tabitha Zamora Plan Of Treatment Next Appt Details Provider Name:Tabitha levin, 04/19/2025 10:45:00 AM, [address] [place], [address], Provider Name:Tabitha levin, 05/03/2025 08:30:00 AM, [address] [place], [address], Progress Notes * GUZMAN DEL CIDDOB: 5 (30 yo F)Acc No.[id number]:03/29/2025 Behavioral Health Patient: GUZMAN AMES :?Tabitha ZamoraDOB:1995???Age:30 Y???Sex: FemaleDate:03/29/2025Phone:[phone]:[address], [phone] Subjective: * Chief Complaints: * T OC FROM CLAUDIA * Electronic signature of Tabitha Zamora , JULIETHNP on 04/07/2025 at 09:53 PM EST Sign off status: Pending * Provider: Chaparro Zamora Date: 1 05/30/2024 Generated for Printing/Faxing/eTransmitting on:?04/07/2025 09:53 PM EST
--- OUTSIDE RECORDS SUMMARY | 2025-04-02 10:00 | XMS_ITS | Encounter Summary ---
Author Organization [facility] Address [address] [place] [address] Care Team Providers Care Rock Wool Insulator Name Role Phone Amanda Ford CONTINUOUS IMPROVEMENT ENGINEER Primary Care Provider Reason for Visit * ReasonCommentsRoutine Visit Encounter Details DateTypeDepartmentCare Team (Latest Contact Info)Vrhpbcriwid16/16/2025 10:00 AM ESTRoutine [facility] [address] [place] [address] Les Martinez DO [address] [place] [address] Third trimester [facility]); 37 weeks gestation of ([facility]); Conceived by in vitro fertilization; Thyroid disease; H/O gastric sleeve; H/O iron deficiency anemia Social History Tobacco UseTypesPacks/DayYears UsedDateSmoking Tobacco: FormerCigarettes0.53 Quit: 05/24/2024Smokeless Tobacco: NeverAlcohol UseStandard Drinks/WeekComments Not Currently0 (1 standard drink = 0.6 oz pure alcohol)caffeine: 1-2 cups per day teaPHQ-2AnswerDate RecordedPatient Health Questionnaire-2 Wrwjb646 Estimated Date of EspqkyejGuwwfqodGuv91/06/2026ased on Est. Date of ConceptionSex and Gender InformationValueDate RecordedSex Assigned at Zyzrfe4301/19/2023 8:10 PM EDTLegal TezLqfwui81/02/2023 9:50 PM EDTGender Identity Wjtgyg5901/19/2023 8:10 PM EDTSexual OrientationNot on fileTravel HistoryTravel StartTravel SutZhxhlbh36/22/235058/documented as of this encounter Last Filed Vital Signs Vital SignReadingTime TakenCommentsBlood Rdgtvyya747/7604/02/2025 10:43 AM EST Pulse--Temperature--Respiratory Rate--Oxygen Saturation--Inhaled Oxygen Concentration--Npscmh426 kg (302 lb)04/02/2025 10:43 AM ESTHeight--Body Mass Index42.12008/22/2024 10:04 AM EDTdocumented in this encounter Progress Notes * Alanagaudencio Valverde, YANDEL - 04/02/2025 10:00 AM EST Reason for Appointment: Patient ID: [...] gestation of ([facility]) 03/06/2025 Third trimester ([facility]) 03/06/2025 Conceived by in vitro fertilization 04/02/2025 Resolved Ambulatory Problems Diagnosis Date Noted No Resolved Ambulatory Problems Past Medical History: Diagnosis Date Abnormal results of thyroid function studies ADD (attention deficit disorder) Anemia Bariatric surgery status Bipolar disorder ([facility]) Dysmenorrhea Female infertility Functional enuresis GERD (gastroesophageal [...] Negative. Endocrine: Negative. Allergic/Immunologic: Negative. OBJECTIVE Objective: OBGyn Exam Vitals: Estimated body mass index is 42.12 kg/m?? as calculated from the following: Height as of 08/22/24: 5' 11 . Weight as of this encounter: 302 lb. BP: 128/76 No LMP recorded. Patient is . Assessment/Plan ICD-10-CM 1. Third trimester ([facility]) Z34.93 POCT urinalysis dipstick manually resulted 2. 37 weeks gestation of ([facility]) Z3A.37 3. Conceived by in vitro fertilization Z78.9 4. Thyroid disease E07.9 5. H/O gastric sleeve Z90.3 6. H/O iron deficiency anemia Z86.2 Assessment/Plan Return OB: Patient presents today for a routine obstetrics appointment. Patient is currently 37w0d . Patient states she is doing well but has complaints of being tired due to current . Patient has verbalizes frequent movement. labor precautions was discussed/given and patient was instructed to perform kick counts three times a day. Pt to be induced with pitocin at 2300 on 04/07/25. Orders Placed This Encounter Procedures POCT urinalysis dipstick manually resulted Follow Up: Patient is to return to office in 1 week for routine OB appointment. Documented by Alana Valverde LPN on behalf of: Les Martinez DO documented in this encounter Plan of Treatment DateTypeDepartmentCare Team (Latest Contact Info)Ezgrncezezg36/06/2026 9:30 AM EDTOffice Visit [facility] [address] [place] [address] Darleen Sinclair MD [address] [place] [address] documented as of this encounter Goals GoalPatient Goal TypeAssociated ProblemsRecent ProgressPatient-Stated?Author Reminders Care PlanOB RemindersNoOpen Scheduling, Backgrounddocumented as of this encounter Procedures Procedure NamePriorityDate/TimeAssociated DiagnosisCommentsPOCT URINALYSIS DZLMBQBMKubmgza52/16/2025 10:44 AM EST Third trimester ([facility]) documented in this encounter Results * POCT urinalysis dipstick manually resulted (04/02/2025 10:44 AM EST)Component ValueRef RangeTest MethodAnalysis TimePerformed AtPathologist SignatureColor, UAYellowClarity, UAClearGlucose, UANegativeNegative - 1999(110) ++++ mg/dL Bilirubin, UANegativeNegative - 4(70) +++ mg/dLKetones, UANegativeNegative - 160(16) ++++ mg/dLSpec Grav, UA1.0101 - 1.03Blood, UANegativeNegative - 50 Yehuda/mcLpH, UA6.55 - 9Protein, UANegativeNegative - 2000(20) ++++ mg/dL Urobilinogen, UA1.00.2 - 12 mg/dLLeukocytes, UANegativeNegative - 500+++ Kourtney/mcLNitrite, UANegativeNegative - PositiveSpecimen (Source)Anatomical Location / LateralityCollection Method / VolumeCollection TimeReceived Time Urine04/02/2025 10:44 AM EST Narrative Authorizing ProviderResult TypeResult StatusCorey Juan DOPOINT OF CARE TEST ENTER/EDIT ORDERABLESFinal Result documented in this encounter Visit Diagnoses Diagnosis Third trimester ([facility]) state, incidental 37 weeks gestation of ([facility]) Conceived by in vitro fertilization Thyroid disease Unspecified disorder of thyroid H/O gastric sleeve H/O iron deficiency anemia documented in this encounter Additional Health Concerns Active ProblemsNoted DateDiagnosed DateOB Uyiwpkvwe40/07/2025 documented as of this encounter Care Teams Team MemberRelationshipSpecialtyStart DateEnd Date Amanda Ford NP [address] [place] [address] [place] [address] PCP - GeneralFamily Sxztasnb11/2/23documented as of this encounter
--- OUTSIDE RECORDS SUMMARY | 2025-04-07 21:53 | XMS_ITS | Encounter Summary ---
Author Organization [facility] Address [address] [place] [address] Care Team Providers Care Reject Opener And Filler Name Role Phone Amanda Ford BOLT LOADER Primary Care Provider Encounter Details DateTypeDepartmentCare Team (Latest Contact Info)Gukyytklgvs68/09/2025Bamboo flowsheet [facility] [address] [address] Jojo Ames PA [address] [facility] [address] [place], [facility] Social History Tobacco UseTypesPacks/DayYears UsedDateSmoking Tobacco: FormerCigarettes0.53 Quit: 05/24/2024Smokeless Tobacco: NeverAlcohol UseStandard Drinks/WeekComments Not Currently0 (1 standard drink = 0.6 oz pure alcohol)caffeine: 1-2 cups per day teaPHQ-2AnswerDate RecordedPatient Health Questionnaire-2 Bvjgy545 Estimated Date of CmondnsdAyvebkglDxh23/06/2026Based on Est. Date of ConceptionSex and Gender InformationValueDate RecordedSex Assigned at Gdythg6401/19/2023 8:10 PM EDTLegal VjuTwxzfn51/02/2023 9:50 PM EDTGender Identity Zqnevu0301/19/2023 8:10 PM EDTSexual OrientationNot on fileTravel HistoryTravel StartTravel BdtEfgocsb80/22/40215205/16/2024documented as of this encounter Plan of Treatment DateTypeDepartmentCare Team (Latest Contact Info)Ucfrlvzolpl27/06/2026 9:30 AM EDTOffice Visit [facility] [place] [facility] [address] [place] [address] Darleen Sinclair MD [address] [place] [address] documented as of this encounter Goals GoalPatient Goal TypeAssociated ProblemsRecent ProgressPatient-Stated?Author Reminders Care PlanOB RemindersNoOpen Scheduling, Backgrounddocumented as of this encounter Visit Diagnoses Not on filedocumented in this encounter Additional Health Concerns Active ProblemsNoted DateDiagnosed DateOB Grxxaootn18/07/2025 documented as of this encounter Care Teams Team MemberRelationshipSpecialtyStart DateEnd Date Amanda Ford NP [address] [place] [address] PCP - GeneralFamily Pliqvxhc57/2/23documented as of this encounter
--- OUTSIDE RECORDS SUMMARY | 2025-04-07 21:53 | XMS_ITS | Encounter Summary ---
Author Organization [facility] Address [address] [place] [address] Care Team Providers Care Tanning Drum Operator Name Role Phone Amanda Hewitt MULTIFOCAL LENS INSPECTOR Primary Care Provider Encounter Details DateTypeDepartmentCare Team (Latest Contact Info)Durbggypnzd56/08/2025Clinisync Result Encounter [facility] External Department Unsolicited Basim Martinez, DO [address] [facility] [address] [place], [place] [address] Social History Tobacco UseTypesPacks/DayYears UsedDateSmoking Tobacco: FormerCigarettes0.53 Quit: 05/24/2024Smokeless Tobacco: NeverAlcohol UseStandard Drinks/WeekComments Not Currently0 (1 standard drink = 0.6 oz pure alcohol)caffeine: 1-2 cups per day teaPHQ-2AnswerDate RecordedPatient Health Questionnaire-2 Sieph789 Estimated Date of NcsdrzthGelauhuzSde89/06/2026ased on Est. Date of ConceptionSex and Gender InformationValueDate RecordedSex Assigned at Fgslvl7201/19/2023 8:10 PM EDTLegal DcbDkdexg23/02/2023 9:50 PM EDTGender Identity Purxtt2001/19/2023 8:10 PM EDTSexual OrientationNot on fileTravel HistoryTravel StartTravel YnvHstdfje59/22/202511/documented as of this encounter Plan of Treatment DateTypeDepartmentCare Team (Latest Contact Info)Jbshwjjshvv21/06/2026 9:30 AM EDTOffice Visit [facility] [place] [facility] [address] [place] [address] Darleen Sinclair MD [address] [place] [address] documented as of this encounter Goals GoalPatient Goal TypeAssociated ProblemsRecent ProgressPatient-Stated?Author Reminders Care PlanOB RemindersNoOpen Scheduling, Backgrounddocumented as of this encounter Procedures Procedure NamePriorityDate/TimeAssociated DiagnosisCommentsUS OB BPP W NON-FYLNSS2403/25/2025 4:30 PM EST documented in this encounter Results * US OB BPP W NON-STRESS (03/25/2025 4:30 PM EST)Anatomical Region LateralityModalityOtherSpecimen (Source)Anatomical Location / Laterality Collection Method / VolumeCollection TimeReceived Time03/25/2025 4:30 PM EST Narrative 03/25/2025 4:33 PM EST [facility] ?[address] ? [place] [address] ? Ultrasound Report ? Signed ? Patient: GUZMAN DEL CID ?MR#: [id number] ?? : 1995 ?Acct:[id number] ?? Age/Sex: 30 / F ?ADM Date: 03/25/25 ?? Loc: US ? Attending Dr: Basim Martinez D.O. ? Ordering Physician: Basim Martinez D.O. ?? Date of Service: 03/25/25 ?? Procedure(s): US OB BPP w non-stress ?? Accession Number(s): [id number] ? cc: Basim Martinez D.O.; AMANDA HEWITT ? [facility] ? [address] ? [place] [address] ? Patient Name: ?? GUZMAN DEL CID ? MRN: TB:[id number] ? date: 1995 ?Sex: F ?? Assigned Patient Location: [facility] ?? Current Patient Location: ? Accession/Order Number: [id number] ?? Exam Date: 03/25/2025 ??14:05 ?Report Date: [...] M.D. ??03/25/2025 4:30 PM ? Dictation Location: [facility] ? Electronically authenticated by: [id number] ??Y ?? Date: 03/25/2025 ??16:30 ? Dictated By: ?Zachary Simon M.D. ? Signed By: ?03/25/25 1633 ? DD/ 1630 ? TD/TT: ? Sanding Machine Operator: Procedure Note Radiology, Radiologist, - 03/26/2025 [place] [address] Ultrasound Report Signed Patient: GUZMAN DEL CID EMR#: [id number] : 1995Acct:[id number] Age/Sex: 30 / FADM Date: 03/25/25 Loc: US Attending Dr: Basim Martinez D.O. Ordering Physician: Basim Martinez D.O. Date of Service: 03/25/25 Procedure(s): US OB BPP w non-stress Accession Number(s): [id number] cc: Basim Martinez D.O.; AMANDA HEWITT [facility] [address] [place], [place] [address] Patient Name: GUZMAN DEL CID MRN: [facility]:[id number] date: 1995 Sex: F Assigned Patient Location: [facility] Current Patient Location: Accession/Order Number: [id number] Exam Date: 03/25/2025 14:05 Report Date: 03/25/2025 [...] Simon M.D. 03/25/2025 4:30 PM Dictation Location: [place] [address] Electronically authenticated by: [id number] Y Date: 6:30 Dictated By: Zachary Simon M.D. Signed By:03/25/25 1633 DD/ 163 TD/TT: Sanding Machine Operator: Authorizing ProviderResult TypeResult StatusCorey Juan DOCLINISYNC IMAGINGFinal Result documented in this encounter Visit Diagnoses Not on filedocumented in this encounter Additional Health Concerns Active ProblemsNoted DateDiagnosed DateOB Ewpscpiur52/07/2025 documented as of this encounter Care Teams Team MemberRelationshipSpecialtyStart DateEnd Date Amanda Hewitt NP [address] [place] [id number] PCP - GeneralFamily Ehukqvpj60/2/23documented as of this encounter
--- OUTSIDE RECORDS SUMMARY | 2025-04-07 21:53 | XMS_ITS | Encounter Summary ---
Author Organization [facility] Address [address] [place] [address] Care Team Providers Care Textile Bag Sewer Name Role Phone Amanda Ford AUTOMOBILE SALESMAN Primary Care Provider Encounter Details DateTypeDepartmentCare Team (Latest Contact Info)Xfeaewvhmsd03/16/2025bstract [facility] [place] [facility] [address] [place] [address] Les Martinez DO [address] [facility] [place] [address] Social History Tobacco UseTypesPacks/DayYears UsedDateSmoking Tobacco: FormerCigarettes0.53 Quit: 05/24/2024Smokeless Tobacco: NeverAlcohol UseStandard Drinks/WeekComments Not Currently0 (1 standard drink = 0.6 oz pure alcohol)caffeine: 1-2 cups per day teaPHQ-2AnswerDate RecordedPatient Health Questionnaire-2 Fxhjl794 Estimated Date of WserflfjIjqubpleTyl26/06/2026ased on Est. Date of ConceptionSex and Gender InformationValueDate RecordedSex Assigned at Faduvt3801/19/2023 8:10 PM EDTLegal VryEdhskx47/02/2023 9:50 PM EDTGender Identity Klovlv1601/19/2023 8:10 PM EDTSexual OrientationNot on fileTravel HistoryTravel StartTravel KxxXdewwza28/22/67706905/16/2024documented as of this encounter Plan of Treatment DateTypeDepartmentCare Team (Latest Contact Info)Lflpxuuwttb97/06/2026 9:30 AM EDTOffice Visit [facility] [place] [facility] [address] [place] [address] Darleen Sinclair MD [address] [place] [address] documented as of this encounter Goals GoalPatient Goal TypeAssociated ProblemsRecent ProgressPatient-Stated?Author Reminders Care PlanOB RemindersNoOpen Scheduling, Backgrounddocumented as of this encounter Visit Diagnoses Not on filedocumented in this encounter Additional Health Concerns Active ProblemsNoted DateDiagnosed DateOB Igulehdsy10/07/2025 documented as of this encounter Care Teams Team MemberRelationshipSpecialtyStart DateEnd Date Amanda Ford NP [address] [place] [address] PCP - GeneralFamily Upcfuejl06/2/23documented as of this encounter
--- OUTSIDE RECORDS SUMMARY | 2025-04-07 21:53 | XMS_ITS | Encounter Summary ---
Author Organization [facility] Address [address] [place] [address] Care Team Providers Care Trainer Name Role Phone Amanda Ford MATERIALS PLANNING ANALYST Primary Care Provider Encounter Details DateTypeDepartmentCare Team (Latest Contact Info)Tbruzcsztyw37/15/2025Travel Social History Tobacco UseTypesPacks/DayYears UsedDateSmoking Tobacco: FormerCigarettes0.53 Quit: 05/24/2024Smokeless Tobacco: NeverAlcohol UseStandard Drinks/WeekComments Not Currently0 (1 standard drink = 0.6 oz pure alcohol)caffeine: 1-2 cups per day teaPHQ-2AnswerDate RecordedPatient Health Questionnaire-2 Sfzyb150 Estimated Date of PhhuxpvnJczuelcrKur42/06/2026ased on Est. Date of ConceptionSex and Gender InformationValueDate RecordedSex Assigned at Ybmymk6801/19/2023 8:10 PM EDTLegal WjgRlxugf27/02/2023 9:50 PM EDTGender Identity Dqnfdv0301/19/2023 8:10 PM EDTSexual OrientationNot on fileTravel HistoryTravel StartTravel JfxVwjzfbg25/22/460198/documented as of this encounter Plan of Treatment DateTypeDepartmentCare Team (Latest Contact Info)Lrwztkowbzm50/06/2026 9:30 AM EDTOffice Visit [facility] [address] [place] [address] Darleen Sinclair MD [address] [place] [address] documented as of this encounter Goals GoalPatient Goal TypeAssociated ProblemsRecent ProgressPatient-Stated?Author Reminders Care PlanOB RemindersNoOpen Scheduling, Backgrounddocumented as of this encounter Visit Diagnoses Not on filedocumented in this encounter Additional Health Concerns Active ProblemsNoted DateDiagnosed DateOB Wfpczosnl45/07/2025 documented as of this encounter Care Teams Team MemberRelationshipSpecialtyStart DateEnd Date Amanda Ford NP [address] [place] [address] [place] [address] PCP - GeneralFamily Ncpwfgim96/2/23documented as of this encounter
--- OUTSIDE RECORDS SUMMARY | 2025-04-07 21:53 | XMS_ITS | Clinical Summary ---
Author Organization [facility] Address [address] [facility], [address] [place] [address] Care Team Providers Care Gyroscopic Instrument Mechanic Name Role Phone Robin Marquez MD Primary Care Provider [phone] Allergies No known active allergies Medications MedicationSigDispense QuantityRefillsLast FilledStart DateEnd DateStatus levothyroxine (SYNTHROID) 175 MCG tablet TAKE 2 TABLETS BY MOUTH ONCE [id number] ALPRAZolam (XANAX) 0.5 MG tablet TAKE 1 [...] ProblemNoted DateDiagnosed DateRight upper quadrant abdominal pain03/30/2021 Orwskhqgixz75/13/2021Orthostatic thbbipcll95/13/2021Obesity (BMI 30-39.9) 02/09/2021Obesity, Class III, BMI 40-49.9 (morbid obesity)11/10/2020hronic low back pain11/10/2020tatus post laparoscopic sleeve /19/2021Vitamin D ogzjedmucp45/27/1114Qdbshiptrinnnq86/20/2019Bipolar disease, ccxwoin1412/05/2018 Plantar fasciitis, mqqibytnx32/20/2019Marijuana use12/05/2018 Resolved Problems ProblemNoted DateDiagnosed DateResolved DateMorbid obesity with BMI of 50.0- 59.9, adultMorbid obesity with BMI of 60.0-69.9, adult Family History Medical HistoryRelationNameCommentsHigh Blood PressureFatherOtherMotherOther SisterRelationNameStatusCommentsFatherAlivethyroidMotherAlivethyroidSisterOther thyroid Social History Tobacco UseTypesPacks/DayYears UsedDateSmoking Tobacco: NeverSmokeless Tobacco: NeverAlcohol UseStandard Drinks/WeekCommentsNo0 (1 standard drink = 0.6 oz pure alcohol)CommentsNoSex and Gender InformationValueDate RecordedSex Assigned at BirthNot on fileLegal HgoLwtfjn55/26/2015 7:37 PM ESTGender Identity Not on fileSexual OrientationNot on file Last Filed Vital Signs Vital SignReadingTime TakenCommentsBlood Uwoiankc658/6001/ 2:44 PM EST Niqbw0063/27/2022 2:44 PM XXJElspqrshkqr12.7 ??C (98.1 ??F)03/30/2021 5:10 PM ESTRespiratory Gkli0627 5:10 PM ESTOxygen Eeqldkfmtb03%03/30/2021 5:10 PM ESTInhaled Oxygen Concentration--Xuarse26 kg (205 lb)09/04/2021 9:27 AM EDT Ogprhh395.9 cm (6')09/04/2021 9:27 AM EDTBody Mass Index27.8009/04/2021 9:27 AM EDT Plan of Treatment Not on file Insurance Advance Directives * Full Code (Latest Code Status on File) Date ActivatedDate InactivatedComments05/06/2020 4:42 PM05/08/2020 3:13 PM Care Teams Team MemberRelationshipSpecialtyStart DateEnd Date Robin Marquez MD [address] [phone] PCP - GeneralFamily Medicine10/10/18
--- OUTSIDE RECORDS SUMMARY | 2025-04-07 21:53 | XMS_ITS | Encounter Summary ---
Author Organization [facility] Address [address] [place] [address] Care Team Providers Care Exercise Instruct Name Role Phone Amanda Ford INSULATION MECHANIC Primary Care Provider Encounter Details DateTypeDepartmentCare Team (Latest Contact Info)Rpdvbaetjpg10/09/2025Clinisync Result Encounter [facility] Unsolicited Jojo Ames PA [address] [place] [address] [place], [place] [id number] Social History Tobacco UseTypesPacks/DayYears UsedDateSmoking Tobacco: FormerCigarettes0.53 Quit: 05/24/2024Smokeless Tobacco: NeverAlcohol UseStandard Drinks/WeekComments Not Currently0 (1 standard drink = 0.6 oz pure alcohol)caffeine: 1-2 cups per day teaPHQ-2AnswerDate RecordedPatient Health Questionnaire-2 Kzbxr530 Estimated Date of YwvynkxiWmsewyjmJob15/06/2026Based on Est. Date of ConceptionSex and Gender InformationValueDate RecordedSex Assigned at Urojtj4001/19/2023 8:10 PM EDTLegal CoaSdgllf37/02/2023 9:50 PM EDTGender Identity Bokseo1401/19/2023 8:10 PM EDTSexual OrientationNot on fileTravel HistoryTravel StartTravel UauIikkmfz44/22/202511/documented as of this encounter Plan of Treatment DateTypeDepartmentCare Team (Latest Contact Info)Pheqvsedxjt69/06/2026 9:30 AM EDTOffice Visit [facility] [address] [place] [phone] Darleen Sinclair MD [address] [place] [address] documented as of this encounter Goals GoalPatient Goal TypeAssociated ProblemsRecent ProgressPatient-Stated?Author Reminders Care PlanOB RemindersNoOpen Scheduling, Backgrounddocumented as of this encounter Procedures Procedure NamePriorityDate/TimeAssociated DiagnosisCommentsSTREP GP B CULTURE+XHHXDmjfuzp72/09/2025 1:49 PM EST documented in this encounter [...] GP B CULTURE+RFLX Performed at: - [facility]+[id number] [place], [place] [id number] GP B CULTURE+RFLXLab Director: Isaac Dietz PhD, Phone: [phone] (Source)Anatomical Location / Laterality Collection Method / VolumeCollection TimeReceived Time03/26/2025 1:49 PM EST 03/26/2025 7:23 PM EST Narrative [facility] - 03/31/2025 5:07 PM EST Authorizing ProviderResult TypeResult StatusAmy Kwaku PALAB BLOOD ORDERABLES Final ResultPerforming OrganizationAddressCity/State/ZIP CodePhone Number [facility] TB documented in this encounter Visit Diagnoses Not on filedocumented in this encounter Additional Health Concerns Active ProblemsNoted DateDiagnosed DateOB Qconhcyyf27/07/2025 documented as of this encounter Care Teams Team MemberRelationshipSpecialtyStart DateEnd Date Amanda Ford NP [address] [facility] [place] [address] PCP - GeneralFamily Fhazulfz03/2/23documented as of this encounter
--- OUTSIDE RECORDS SUMMARY | 2025-04-07 21:54 | XMS_ITS | Patient Health Record ---
Author Organization [facility] [place] Address [address] [place] [address] Care Team Providers Care Hardwood Floor Layer Name Role Phone Robin Marquez MD Primary Care Provider Unavail able Reason For Referral No Information Plan Of Treatment No Information
--- OUTSIDE RECORDS SUMMARY | 2025-04-07 21:54 | XMS_ITS | Encounter Summary ---
Author Organization [facility] tem Address [id number] [place] [address] Care Team Providers Care Renal Dialysis Technician Name Role Phone No Pcp, No Pcp Primary Care Provider Unavailabl e Reason for Visit * ReasonCommentsMed Refill Encounter Details DateTypeDepartmentCare Team (Latest Contact Info)Atwxdhclxwv11/11/2025Refill Maternal- Medicine at [facility] [address] [place] [address] Latricia Garcia MD [address] [facility], [address] [place] [address] headache in second trimester Social History Tobacco UseTypesPacks/DayYears UsedDateSmoking Tobacco: FormerCigarettes2 Started: 2023Smokeless Tobacco: NeverAlcohol UseStandard Drinks/WeekCommentsNot Currently0 (1 standard drink = 0.6 oz pure alcohol)ChildcareAnswerDate Recorded HutcojxhrYmoddke34/02/2021mploymentAnswerDate RecordedEmploymentUnknown 05/20/2020Hunger ScreeningAnswerDate RecordedWithin the past 12 months we worried whether our food would run out before we got money to buy more.Never True12/05/2024Within the past 12 months the food we bought just didn't last and we didn't have money to get more.Never True12/05/2024Purpose - LifeAnswerDate RecordedPurpose and direction in mdttGqandmk88/02/2021Estimated Date of LwzmuxbsBybgrsclKqb11/06/2026Based on Other Basis, IUI conception date 07/31/2024 Sex and Gender InformationValueDate RecordedSex Assigned at BirthNot on file Legal AxkHvyjxi20/06/2015 12:10 PM EDTGender IdentityNot on fileSexual OrientationNot on filedocumented as of this encounter Plan of Treatment Not on file documented as of this encounter Visit Diagnoses Diagnosis headache in second trimester documented in this encounter Care Teams Team MemberRelationshipSpecialtyStart DateEnd Date No Pcp, [place] [address] PCP - GeneralFamily Medicine05/20/20documented as of this encounter
--- OUTSIDE RECORDS SUMMARY | 2025-04-07 21:54 | XMS_ITS | Clinical Summary ---
Author Organization [facility] Address [address] [place] [address] Care Team Providers Care It Systems Engineer Name Role Phone Unavailable Primary Care [...] RecordedNational Score (1-100), lower number is lower wrzh338102/28/2024State Score (1-10), lower number is lower zcgj96504/29/2023 Data from: https://www.neighborhoodatlas.medicine.[place].[facility]/. Last address used for mqrqgbrfeyn719 self scpfsattn02/12/2024CommentsYesSex and Gender InformationValueDate RecordedSex Assigned at BirthNot on fileLegal SexFemale 07/13/2023 12:45 PM EDTGender IdentityNot on fileSexual OrientationNot on file Last Filed Vital Signs Vital SignReadingTime TakenCommentsBlood Pressure--Pulse--Temperature-- Respiratory Rate--Oxygen Saturation--Inhaled Oxygen Concentration--Aqbgjz55.3 kg (216 lb 11.4 oz)02/28/2024 2:03 PM HPKMivgtr642.3 cm (5' 11 )02/28/2024 2:03 PM ESTBody Mass Index30.23104/29/2023 2:03 PM EST Plan of Treatment Health MaintenanceDue DateLast DoneCommentsAnxiety Uhklcykfy62/17/2013Depression Fpdofkimb97/17/2013Hepatitis B Vaccine (1 of 3 - 19+ 3-dose series)2014 Cervical Cancer Tfxjrixqx08/17/2016HPV Vaccine (1 - 3-dose SCDM series) 2022ovid-19 Vaccine ( - 2024- season)2024Influenza Vaccine (#1) 2024DTaP,Tdap,Td Vaccine (2 - Td or Tdap)/12/2022RSV Vaccine (1 - 1-dose 75+ series)2070HIV EqryvpeslMrzaaiueq21/16/2024Hepatitis C VuyfpljebMaxfrcjvo11/16/2024 Procedures Procedure NamePriorityDate/TimeAssociated DiagnosisCommentsHIV 1/2 COMBO WITH REFLEX TO RPQAWWWVOZGIHLOAfqdpen95/16/2024 3:21 PM EST Special screening examination for infectious diseases HEPATITIS C ANTIBODY IA WITH VDCLYCEPEKWGWmmhjqx49/16/2024 3:21 PM EST Special screening examination for infectious diseases from Last 3 Months or Most Recently Relevant to Health Maintenance Results * HIV 1/2 COMBO WITH REFLEX TO DIFFERENTIATION (04/02/2024 3:21 PM EST)Component ValueRef RangeTest MethodAnalysis TimePerformed AtPathologist SignatureHIV 12 Combo (Ag/Ab)CpzdzcuuqeeRzlpifmwqkf80/17/2024 12:27 PM [facility]HIV-1/2 AB (Confirmatory)04/03/2024 12:27 PM [facility] LABComment:Test not indicated.HIV Zwumwycmottskq25/17/2024 12:27 PM [facility] LABComment: No evidence of HIV-1 or HIV-2 infection. Should recent infection be suspected, repeat testing may be considered 2-3 weeks after this draw. Hendry Rev. Code 3701.243(E): This information has been [...] Hernandez APRN.CNPLABORATORY Final ResultPerforming OrganizationAddressCity/State/ZIP CodePhone Number [facility] [address] [place] [address], * HEPATITIS C ANTIBODY IA WITH CONFIRMATION (04/02/2024 3:21 PM EST)Component ValueRef RangeTest MethodAnalysis TimePerformed AtPathologist SignatureHep C Antibody QUQbvikdsvViuapxiy19/17/2024 11:20 AM [facility] LABComment:The result suggests no evidence of active infection with Hepatitis C virus. Should recent infectionbe suspected, repeat testing may be considered 4-6 weeks after this draw.Specimen (Source)Anatomical Location / Laterality Collection Method / VolumeCollection TimeReceived TimeBloodBLOOD SPECIMEN / UnknownVenipuncture / Ywbtbxh1104/02/2024 3:21 PM EST04/02/2024 3:22 PM EST Narrative Authorizing ProviderResult TypeResult StatusShelly Hernandez APRN.CNPLABORATORY Final ResultPerforming OrganizationAddressCity/State/ZIP CodePhone Number [facility] [address] [facility] [address], from Last 3 Months or Most Recently Relevant to Health Maintenance Insurance
--- OUTSIDE RECORDS SUMMARY | 2025-04-07 21:54 | XMS_ITS | Encounter Summary ---
Author Organization [facility] Address [address] [place] [address] Care Team Providers Care Corporate Vp Advertising & Online Name Role Phone Amanda Ford RADIOISOTOPE TECHNICIAN Primary Care Provider Encounter Details DateTypeDepartmentCare Team (Latest Contact Info)Rnvfmprjvoq67/16/2025Bamboo flowsheet [facility] [address] [place] [address] Les Martinez DO [address] [facility] [address] Justo Chacko, [facility] Social History Tobacco UseTypesPacks/DayYears UsedDateSmoking Tobacco: FormerCigarettes0.53 Quit: 05/24/2024Smokeless Tobacco: NeverAlcohol UseStandard Drinks/WeekComments Not Currently0 (1 standard drink = 0.6 oz pure alcohol)caffeine: 1-2 cups per day teaPHQ-2AnswerDate RecordedPatient Health Questionnaire-2 Udzey179 Estimated Date of PazrlplmYpruzmhaYxx98/06/2026Based on Est. Date of ConceptionSex and Gender InformationValueDate RecordedSex Assigned at Smezak2001/19/2023 8:10 PM EDTLegal CsvVgsmxy11/02/2023 9:50 PM EDTGender Identity Nmewfi5601/19/2023 8:10 PM EDTSexual OrientationNot on fileTravel HistoryTravel StartTravel GxrHrekopy23/22/406911/documented as of this encounter Plan of Treatment DateTypeDepartmentCare Team (Latest Contact Info)Kxdplszttbe05/06/2026 9:30 AM EDTOffice Visit [facility] [address] [place] [address] Darleen Sinclair MD [address], [address] [place] [address] documented as of this encounter Goals GoalPatient Goal TypeAssociated ProblemsRecent ProgressPatient-Stated?Author Reminders Care PlanOB RemindersNoOpen Scheduling, Backgrounddocumented as of this encounter Visit Diagnoses Not on filedocumented in this encounter Additional Health Concerns Active ProblemsNoted DateDiagnosed DateOB Gnythdpaj26/07/2025 documented as of this encounter Care Teams Team MemberRelationshipSpecialtyStart DateEnd Date Amanda Ford NP [address] [place] [address] PCP - GeneralFamily Fcgsrrlp69/2/23documented as of this encounter
--- OUTSIDE RECORDS SUMMARY | 2025-04-07 21:54 | XMS_ITS | Encounter Summary ---
Author Organization [facility] Address [address] [place] [address] Care Team Providers Care Avionics Technician Name Role Phone Amanda Ford PRINTED CIRCUIT BOARD LAYOUT DESIGNER Primary Care Provider Encounter Details DateTypeDepartmentCare Team (Latest Contact Info)Lbjfodkmzii99/05/2025Telephone [facility] [address] [place] [address] [place] [address] Kerrie Babcock MA Social History Tobacco UseTypesPacks/DayYears UsedDateSmoking Tobacco: FormerCigarettes0.53 Quit: 05/24/2024Smokeless Tobacco: NeverAlcohol UseStandard Drinks/WeekComments Not Currently0 (1 standard drink = 0.6 oz pure alcohol)caffeine: 1-2 cups per day teaPHQ-2AnswerDate RecordedPatient Health Questionnaire-2 Czglk570 Estimated Date of FozfbosaGqcmipjzVqu72/06/2026ased on Est. Date of ConceptionSex and Gender InformationValueDate RecordedSex Assigned at Myjeoh9901/19/2023 8:10 PM EDTLegal HogHmtbdj24/02/2023 9:50 PM EDTGender Identity Pvjhhb8201/19/2023 8:10 PM EDTSexual OrientationNot on fileTravel HistoryTravel StartTravel HkwJgiystu27/22/578782/documented as of this encounter Miscellaneous Notes * Telephone Encounter - Kerire Babcock MA - 03/22/2025 11:45 AM EST Hi, my name is Jaz [place]. My birthday is [birth year]. I was just calling because I am not sure ifI need to let Dr. Martinez know or not. But I tested positive for COVID today when I took an at home test. FYI documented in this encounter Plan of Treatment DateTypeDepartmentCare Team (Latest Contact Info)Eockqpwoxcj32/06/2026 9:30 AM EDTOffice Visit [facility] [address] [place] [address] Darleen Sinclair MD [address] [place] [address] documented as of this encounter Goals GoalPatient Goal TypeAssociated ProblemsRecent ProgressPatient-Stated?Author Reminders Care PlanOB RemindersNoOpen Scheduling, Backgrounddocumented as of this encounter Visit Diagnoses Not on filedocumented in this encounter Additional Health Concerns Active ProblemsNoted DateDiagnosed DateOB Ztllrejay61/07/2025 documented as of this encounter Care Teams Team MemberRelationshipSpecialtyStart DateEnd Date Amanda Ford NP [address] [facility] [place] [address] [place] [address] PCP - GeneralFamily Rdigtuat74/2/23documented as of this encounter
--- OUTSIDE RECORDS SUMMARY | 2025-04-07 21:54 | XMS_ITS | Patient Health Record ---
Author Organization [facility] Address [address] [place] [address] Care Team Providers Care Roll Over Press Operator Name Role Phone Tabihta Zamora Primary Care Provider Jennifer Hahn Unavailable [phone] Julieta [place] Unavailable [phone] Allergies No Known Allergies Reason For Referral [...] MG Capsule1 capsule with food Orally at vehdrdm065- 200 caloriesNot-Taking/PRNlamoTRIgine 200 MG Tablet1 tablet Orally [...] a drink containing alcohol in the past year?PpQchjoo3BfcjdnwxzwbnfqKsugwfip Problems Problem Type SNOMED Code ICD Code Onset Dates Problem Status W/U Status Risk Notes Problem 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 (229164215) 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) ActiveconfirmedProblemAnxiety state (553072190)Anxiety state, unspecified (F41.1)ActiveconfirmedProblemLong-term current use of drug therapy (530204241) High risk medications (not anticoagulants) long-term use (Z79.899)Active confirmedProblemBipolar affective disorder, currently manic, mild (768337137) Bipolar disorder, current episode manic without psychotic features, mild (F31.11)Activeconfirmed Vital Signs Heart Rate 84 /min 10/24/2024 Bfsgwrqh86 %10/24/2024lood pressure algxfvyhq38 mm Hg10/24/20249651Ljgxgi79 in 10/24/2024lood pressure gkxmviyw485 mm Hg10/24/20249552Gewdig901.2 lbs10/24/2024MI 30.43 kg/m210/24/2024 Encounters Encounter Location Date Provider Diagnosis [facility] [address] [place] [address] 05/10/2024 Julieta [place] Bipolar disorder, current episode manic without psychotic features, mild F31.11 and Anxiety state, unspecified F41.1 [facility] [address] [place] [address] 05/24/2024 Julieta [place] Bipolar disorder, current episode manic without psychotic features, mild F31.11 [facility] [address] [place] [address] 01/07/2025 Julieta [place] Bipolar disorder, current episode manic without psychotic features, mild F31.11 [facility] [address] [place] [address] 03/05/2025 Tabitha Zamora Bipolar disorder, current episode manic without psychotic features, mild F31.11 [facility] [address] [place] [facility] [place] [address] 03/28/2025 Tabithamichela Zamora [facility] [place] [address]/11/2024Julieta [place] Bipolar disorder, current episode manic without psychotic features, mild F31.11 and Anxiety state, [facility] [facility] [place] [place] [address]/5Christy CoxBipolar disorder, current episode manic without psychotic features, mild F31.11 and Anxiety state, unspecified F41.1[facility] [place] [address]/5Christy CoxBipolar disorder, current episode manic without psychotic features, mild F31.11[facility] [facility] [place] [address]/5Christy CoxBipolar disorder, current episode manic without psychotic [...] - F31.11) cont current treatment transfer to [facility] . . Informed consent obtained: YES, we [...] Concepcion levin, 04/19/2025 10:45:00 AM, [address] [place], [address], Provider Name:Tabitha Riley levin, 05/03/2025 08:30:00 AM, [address] [place], [address], Insurance Providers Payer Name Payer Address Payer Phone Subscriber Number Group Number Insured Name Patient Relationship to Insured Coverage Start Date Coverage End Date [facility] [address] [place] [address] [id number] Aysha DEL CID - patient is the [id number]/19/2022 [facility] [address] [place] [id number], HEATHERSelf - patient is the wrrbaoa5105/19/2022[facility] [address] [place] [phone]om - patient is the [id number] [employer]-termed 05/18/22[address] [place] [id number], BRYANColemalcom - patient is the [id number] MEDICAID CFC after [employer]- termed 05/18/22 [address] [place] [id number] MARIA EUGENIA BRYANColemalcom - patient is the [id number] Medical (General) History Medical History History ICD Code obesity bipolarhypothyroidSurgical History Surgery Date(Month/Year) cholecystectomy gastric XNIZLA57/2021
--- OUTSIDE RECORDS SUMMARY | 2025-04-07 21:54 | XMS_ITS | Encounter Summary ---
Author Organization [facility] Address [address] [place] [address] Care Team Providers Care Adz Worker Name Role Phone Amanda Hewitt TABLE LEVER OPERATOR Primary Care Provider Encounter Details DateTypeDepartmentCare Team (Latest Contact Info)Iqddjbzyttw34/15/2025Clinisync Result Encounter [facility] Unsolicited Basim Martinez, DO [address] [facility] [address] [place], [place] [id number] Social History Tobacco UseTypesPacks/DayYears UsedDateSmoking Tobacco: FormerCigarettes0.53 Quit: 05/24/2024Smokeless Tobacco: NeverAlcohol UseStandard Drinks/WeekComments Not Currently0 (1 standard drink = 0.6 oz pure alcohol)caffeine: 1-2 cups per day teaPHQ-2AnswerDate RecordedPatient Health Questionnaire-2 Sbxhi938 Estimated Date of UrkmtljeYqnnwhxuSmv34/06/2026ased on Est. Date of ConceptionSex and Gender InformationValueDate RecordedSex Assigned at Hkcdeu8301/19/2023 8:10 PM EDTLegal YrfMaclup20/02/2023 9:50 PM EDTGender Identity Qcbwwh0001/19/2023 8:10 PM EDTSexual OrientationNot on fileTravel HistoryTravel StartTravel QbgYlxzkbm49/22/202511/documented as of this encounter Plan of Treatment DateTypeDepartmentCare Team (Latest Contact Info)Voqpafzrrtg55/06/2026 9:30 AM EDTOffice Visit [facility] [place] [facility] [address] [place] [address] Darleen Sinclair MD [address] [place] [address] documented as of this encounter Goals GoalPatient Goal TypeAssociated ProblemsRecent ProgressPatient-Stated?Author Reminders Care PlanOB RemindersNoOpen Scheduling, Backgrounddocumented as of this encounter Procedures Procedure NamePriorityDate/TimeAssociated DiagnosisCommentsUS OB BPP W NON-LGMWJK3104/01/2025 2:43 PM EST documented in this encounter Results * US OB BPP W NON-STRESS (04/01/2025 2:43 PM EST)Anatomical Region LateralityModalityOtherSpecimen (Source)Anatomical Location / Laterality Collection Method / VolumeCollection TimeReceived Time04/01/2025 2:43 PM EST Narrative 04/01/2025 2:45 PM EST [facility] ?[address] ? [place] [address] ? Ultrasound Report ? Signed ? Patient: GUZMAN DEL CID ?MR#: [id number] ?? : 1995 ?Acct:[id number] ?? Age/Sex: 30 / F ?ADM Date: 04/01/25 ?? Loc: US ? Attending Dr: Basim Martinez D.O. ? Ordering Physician: Basim Martinez D.O. ?? Date of Service: 04/01/25 ?? Procedure(s): US OB BPP w non-stress ?? Accession Number(s): [id number] ? cc: Basim Martinez D.O.; AMANDA HEWITT ? [facility] ? [address] ? [place] [address] ? Patient Name: ?? GUZMAN DEL CID ? MRN: [id number] ? date: 1995 ?Sex: F ?? Assigned Patient Location: [facility] ?? Current Patient Location: ? Accession/Order Number: [id number] ?? Exam Date: 04/01/2025 ??14:03 ?Report Date: 04/01/2025 ??14:43 ? At the request of: ?? BASIM ??JUAN ??DO ? Procedure: ??US OB BPP w non-stress ? Biophysical profile. ? Reason for exam: Thyroid stimulating hormone deficiency ? COMPARISON: 03/25/2025 ? TECHNIQUE: Transabdominal imaging of the gravid uterus was obtained. ? FINDINGS: The property insurance claims examiner reports a BPP of 8 out of 8. ??STARR is normal at 14.2 ?? cm. ?? heart rate 130 bpm. ? US/US OB BPP w non-stress ?? IMPRESSION: BPP 8 out of 8. ? Impression dictated by: Sravan Dickinson Jr., D.O. ??04/01/2025 2:43 PM ? Dictation Location: RADIO-PC-22 ? Electronically authenticated by: [id number] ??Y ?? Date: 04/01/2025 ??14:43 ? Dictated By: ?Sravan Dickinson M.D. ? Signed By: ?04/01/255 ? DD/ 1443 ? TD/TT: ? Nailer Machine: Procedure Note Radiology, Radiologist, MD - 04/01/2025 [place] [address] Ultrasound Report Signed Patient: GUZMAN DEL CID EMR#: [id number] : 1995Acct:[id number] Age/Sex: 30 / FADM Date: 04/01/25 Loc: US Attending Dr: Basim Martinez D.O. Ordering Physician: Basim Martinez D.O. Date of Service: 04/01/25 Procedure(s): US OB BPP w non-stress Accession Number(s): [id number] cc: Basim Martinez D.O.; AMANDA HEWITT [address] [address] Patient Name: GUZMAN DEL CID MRN: [id number] date: 1995 Sex: F Assigned Patient [facility]: [facility] Current Patient Location: Accession/Order Number: [id number] Exam Date: 04/01/2025 14:03 Report Date: 04/01/2025 14:43 At the request of: BASIM MARTINEZ DO Procedure: US OB BPP w non-stress Biophysical profile. Reason for exam: Thyroid stimulating hormone deficiency COMPARISON: 03/25/2025 TECHNIQUE: Transabdominal imaging of the gravid uterus was obtained. FINDINGS: The property insurance claims examiner reports a BPP of 8 out of 8. STARR is normal at14.2 cm. heart rate 130 bpm. US/US OB BPP w non-stress IMPRESSION: BPP 8 out of 8. Impression dictated by: Sravan Dickinson Jr., D.O. 04/01/2025 2:43 PM Dictation Location: [place] [address] Electronically authenticated by: [id number] Y Date: 4:43 Dictated By: Sravan Dickinson M.D. Signed By:04/01/25 1445 DD/ 42 TD/TT: Nailer Machine: Authorizing ProviderResult TypeResult StatusCorey Juan DOCLINISYNC IMAGINGFinal Result documented in this encounter Visit Diagnoses Not on filedocumented in this encounter Additional Health Concerns Active ProblemsNoted DateDiagnosed DateOB Ddpzcjfpq68/07/2025 documented as of this encounter Care Teams Team MemberRelationshipSpecialtyStart DateEnd Date Amanda Hewitt NP [address] [place] [address] PCP - GeneralFamily Zbbbfqvz96/2/23documented as of this encounter
--- OUTSIDE RECORDS SUMMARY | 2025-04-07 21:54 | XMS_ITS | Clinical Summary ---
Author Organization [employer] Address [id number] [address] [place] [address] Care Team Providers Care Inside Account Representative Name Role Phone No Pcp, No Pcp Primary Care Provider Unavailabl e Allergies Active AllergyReactionsCriticalityNoted DateCommentsNsaids (Non-Steroidal Anti- Inflammatory Drug)10/26/2024 Medications MedicationSigDispense QuantityRefillsLast FilledStart DateEnd DateStatus hv236-uhdl-pzesi acid ( 19) 29 mg iron- 1 [...] ProblemNoted DateDiagnosed DatePrevious gastric bypass affecting , vjtrdutato75/20/2025Pregnancy headache in second csesofmyb43/20/2025 Hypothyroidism affecting in second eotjoafph24/20/2025ipolar disease during in second szbynbzpz45/20/2025Estimated Date of Delivery JymzqmtkMxv77/06/2026ased on Other Basis, IUI conception date 07/31/2024 Encounters DateTypeDepartmentCare OtdrXggvbsettrm76/11/2025Refill Maternal- Medicine at [facility] [address] [place] [address] Latricia Garcia MD headache in second srphaslmo00/18/2025 11:12 AM EST - 03/05/2025 11:59 PM ESTHospital Encounter [facility]ound [address] [place] [address] Hypothyroidism affecting in second trimester; headache in second trimester; Previous gastric bypass affecting , antepartum; Bipolar disease during in second trimester ([facility]) Discharge Disposition: Home03/04/20258583Wqywkx04/23/2025Orders Only [facility] 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 [facility] - [address] [phone] Roslyn Griffin, LEIGH Hypothyroidism affecting in second trimester (Primary Dx); headache in second trimester; Previous gastric bypass affecting , antepartum; Bipolar disease during in second trimester ([facility])02/07/2025Travel from Last 3 Months Family History Medical HistoryRelationNameCommentsDiabetesFatherHypertensionFatherThyroid diseaseFatherDiabetesMaternal GrandfatherDepressionMotherObesityMotherSkin cancerMotherThyroid diseaseMotherRelationNameStatusCommentsFatherMaternal GrandfatherMotherPaternal Grandfather Social History Tobacco UseTypesPacks/DayYears UsedDateSmoking Tobacco: FormerCigarettes2 Started: 2023Smokeless Tobacco: Never Tobacco Cessation:Counseling Given: Not Answered Alcohol UseStandard Drinks/WeekCommentsNot Currently0 (1 standard drink = 0.6 oz pure alcohol)ChildcareAnswerDate FhljzxhhUriqyltorPxxwgxf80/02/2021mployment AnswerDate VvcpyoldDuzuflxxlsDfwmfrw83/02/2021Hunger ScreeningAnswerDate RecordedWithin the past 12 months we worried whether our food would run out before we got money to buy more.Never True12/05/2024Within the past 12 months the food we bought just didn't last and we didn't have money to get more.Never True12/05/2024Purpose - LifeAnswerDate RecordedPurpose and direction in life Yxefonw0205/20/2020Estimated Date of IwijbjqcXzbbsbvbSpf98/06/2026Based on Other Basis, IUI conception date 07/31/2024Sex and Gender InformationValueDate RecordedSex Assigned at BirthNot on fileLegal TaoPiqppa05/06/2015 12:10 PM EDT Gender IdentityNot on fileSexual OrientationNot on file Last Filed Vital Signs Vital SignReadingTime TakenCommentsBlood Gyapyxtp58/6208 12:46 PM EDT Zmcwq925612/05/2024 12:46 PM EDTTemperature--Respiratory Rate--Oxygen Saturation-- Inhaled Oxygen Concentration--Qedgns626.6 kg (257 lb)12/05/2024 12:46 PM EDT Gjosbs416.3 cm (5' 11 )12/05/2024 12:46 PM EDTBody Mass Index35.8412/05/2024 12:46 PM EDT Plan of Treatment Health MaintenanceDue DateLast DoneCommentsDepression Iybuqxdiw53/17/2007dult BMI Follow Up Plan2013Pap Smear2016COVID-19 Vaccine ( season)/07/2020, 07/22/2020Influenza Zopyktt05 Adult BMI Ilfypxyjo66/Tobacco Mrdnjjrhu85 DTaP,Tdap and Td Vaccines (9 - Td or Tdap), 12/25/2022, 03/03/2009, Additional history existsRSV ( or age 60+ yrs)Completed 02/26/2025 Medical Devices Not on file Procedures Procedure NamePriorityDate/TimeAssociated DiagnosisCommentsUS [facility] OB FOLLOW-UP, 1 JXJZEKlipkko60/18/2025 12:04 PM EST Hypothyroidism affecting in second trimester headache in second trimester Previous gastric bypass affecting , antepartum Bipolar disease during in second trimester ([facility]) US [facility] OB FOLLOW-UP, 1 GRPDZGvmkesa34/23/2025 10:49 AM EDT Previous gastric bypass affecting , antepartum Hypothyroidism affecting in second trimester Bipolar disease during in second trimester ([facility]) Obesity affecting in second trimester, unspecified obesity type from Last 3 Months Results * [facility] OB FOLLOW-UP, 1 FETUS (03/05/2025 12:04 PM EST) Only the most recent of2 resultswithin the time period is included. Anatomical RegionLateralityModalityOB-GYNUltrasoundSpecimen (Source)Anatomical Location / LateralityCollection Method / VolumeCollection TimeReceived Time 03/05/2025 11:31 AM EST Narrative 03/05/2025 3:47 PM EST NAME: ??MARIA EUGENIA HINDS : 1995 SEX: F Accession Number: [id number] ORDERING PHYSICIAN: BASIM MARTINEZ REFERRING PHYSICIAN: BASIM MARTINEZ Coding Procedures ? 90491: Ultrasound, uterus, real time with image documentation, follow up,transabdominal ? approach per fetus Indication resulting from assisted reproductive technology- IUI, History of Gastric sleeve, Obesity in . History OB History ? 1. Para 0 ? H4O9S5X4 Current Cell free DNA ?low risk analysis [...] (oz) ? 11 oz EFW by: ?Hadlock (JXL-BZ-KC-FL) Extended Tibia ??54.8 mm 32w 2d 47% [employer] Finisher ? 4.4 mm Head / Face / [...] MVP measures 7.3 cm. Recommendations Please see [facility] recommendations from prior clinical and/or ultrasound report documentation. Subsequent follow up or other follow up as clinically determined by primary OB provider unless otherwise specified by [facility]. Results forwarded to ordering provider so they can follow up with the patient as necessary. Procedure Note Crystal Rahman MD - 03/05/2025 NAME: MARIA EUGENIA HINDS : 1995 SEX: F Accession Number: [id number] ORDERING PHYSICIAN: BASIM MARTINEZ REFERRING PHYSICIAN: BASIM MARTINEZ Coding Procedures 37603: Ultrasound, uterus, real time with image documentation, follow up, transabdominal approach per fetus Indication resulting from assisted reproductive technology- IUI, History of Gastric sleeve, Obesity in . History OB History 1. Para 0 [id number] Current Cell free DNA low risk analysis [...] EFW (oz) 11 oz EFW by: Hadlock (YBN-LD-RG-FL) Extended Tibia 54.8 mm 32w 2d 47% [employer] Finisher 4.4 mm Head / Face / Neck [...] MVP measures 7.3 cm. Recommendations Please see [facility] recommendations from prior clinical and/or ultrasoundreport documentation. Subsequent follow up or other follow up as clinically determined byprimary OB provider unless otherwise specified by [facility]. Results forwarded to ordering provider so they can follow up with thepatient as necessary. Authorizing ProviderResult TypeResult StatusCorey Deirdre Martinez DOIMG US ORDERABLES Final Result from Last 3 Months Insurance Care Teams Team MemberRelationshipSpecialtyStart DateEnd Date No Pcp, No Pcp LUKE Owens [id number] PCP - GeneralFamily Medicine05/20/20
--- OUTSIDE RECORDS SUMMARY | 2025-04-07 21:54 | XMS_ITS | Clinical Summary ---
Author Organization [facility] Address [address] [place] [address] Care Team Providers Care Credit Risk Analytics Manager Name Role Phone Amanda Ford [place] Primary Care Provider Allergies Active AllergyReactionsCriticalityNoted EhipIqathobiVcwtvzDexrlkzXdbf54/02/2023 Patient had gastric bypass surgery in April [...] Problems ProblemNoted DateDiagnosed DateConceived by in vitro bizxixfunnmic43/16/2025 Thyroid jaeaiys2803/06/2025H/O gastric vtyvxy223 weeks gestation of ([facility])03/06/2025Third trimester ([facility])03/06/2025 Jwajzcurdmo01/12/2024Estimated Date of DqslpkhmNzfwhojuGng80/06/2026 Based on Est. Date of Conception Encounters DateTypeDepartmentCare FvafWundcgnrtlk49/16/2025 10:00 AM ESTRoutine [facility] [place] [address] Basim Martinez, DO Third trimester ([facility]); 37 weeks gestation of ([facility]); Conceived by in vitro fertilization; Thyroid disease; H/O gastric sleeve; H/O iron deficiency xpathg2604/02/2025bstract [facility] [address] [place] [address] Basim Martinez DO 5Bamboo flowsheet [facility] [address] [place] [address] Basim Martinez DO 5Clinisync Result Encounter NOM[facility] External Department Unsolicited Basim Martinez DO 04/01/20253241Lssjkl66/09/2025 1:50 PM ESTRoutine [facility] [address] [place] [address] Jojo Ames PA 36 weeks gestation of ([facility]); Third trimester ([facility]); H/O gastric sleeve; Thyroid hpeotzk5103/26/2025linisync Result Encounter NOM[facility] External Department Unsolicited Jojo Ames PA 03/26/2025amboo flowsheet [facility] [address] [place] [address] Jojo Ames PA 03/25/2025linisync Result Encounter NOM[facility] External Department Unsolicited Basim Martinez, DO 03/22/2025linisync Result Encounter NOM[facility] External Department Unsolicited Basim Martinez, DO 03/22/2025Telephone [facility] [address] [place] [address] Kerrie Babcock [place] 03/21/2025linisync Result Encounter NOM[facility] External Department Unsolicited Basim Martinez, DO 03/20/20255282Ogrmbp20/03/2025Telephone [facility] [address] [place] [address] Kerrie Babcock [place] 03/19/2025 11:00 AM ESTRoutine [facility] [address] [place] [address] Basim Martinez, DO 35 weeks gestation of ([facility]); Third trimester ([facility]); H/O gastric sleeve; Thyroid disease; Sore throat; Upper respiratory tract infection, unspecified type03/19/2025amboo flowsheet [facility] [address] [place] [address] Basim Martinez, DO 03/18/2025linisync Result Encounter NOMS External Department Unsolicited Basim Martinez, DO 03/12/2025Patient Outreach [facility] [address] [place] [address] Jojo Be LPN 03/12/20254329Biunxi09/19/2025bstract [facility] [address] [place] [address] Basim Martinez, DO 03/05/2025 2:20 PM ESTRoutine [facility] [address] [place] [address] Jojo Ames PA Third trimester ([facility]); 33 weeks gestation of ([facility]); Thyroid disease; H/O gastric vlbeyj5903/05/2025Telephone [facility] [address] [place] [address] Marsha Asif MA 03/05/2025External Result Encounter [facility] [address] [place] [address] Basim Martinez, DO 03/05/20257109Tuyria37/18/2025Bamboo flowsheet [facility] [address] [place] [address] Jojo Ames PA 2025linisync Result Encounter NOMS External Department Unsolicited Basim Martinez, DO 03/04/20252955Jklqqy14/11/2025linisync Result Encounter NOMS External Department Unsolicited Basim Martinez, DO 02/19/2025 1:00 PM ESTRoutine [facility] [address] [place] [address] Basim Martinez, DO Third trimester ([facility]); 31 weeks gestation of ([facility]); TSH (thyroid-stimulating hormone deficiency); H/O gastric migxom0302/19/2025linisync Result Encounter NOM[facility] External Department Unsolicited Basim Martinez, DO 5Bamboo flowsheet [facility] [address] [place] [address] Basim Martinez, 02/12/2025bstract [facility] [address] [place] [address] Jojo Be LPN 02/12/20258822Ogbdbo04/24/2025Patient Outreach [facility] [address] [place] [address] Jojo Be LPN 02/08/2025bstract [facility] [address] [place] [address] Kerrie Babcock MA 02/07/2025bstract [facility] [address] [place] [address] Basim Martinez DO 02/06/2025 2:30 PM EDTRoutine [facility] [address] [place] [address] Jojo Ames PA Third trimester ([facility]); 29 weeks gestation of ([facility])02/06/2025amboo flowsheet [facility] [address] [place] [address] Jojo Ames PA 01/31/2025bstract [facility] [address] [place] [address] Basim Martinez 01/30/2025 2:30 PM EDTAncillary Procedure [facility] [address] [place] [address] TSH (thyroid-stimulating hormone deficiency)01/30/20255866Xvlllu65/06/2025Telephone [facility] [address] [place] [address] Marsha Asif MA 01/16/2025 11:20 AM EDTRoutine [facility] [address] [place] [address] Mima Duenas, TY 26 weeks gestation of ([facility]); Second trimester ([facility]); TSH (thyroid-stimulating hormone deficiency)5Bamboo flowsheet [facility] [address] [place] [address] Mima Duenas, TY 5Clinisync Result Encounter NOMS External Department Unsolicited Basim aMrtinez, 01/11/2025Telephone [facility] [address] [place] [address] Basim Martinez, 01/10/2025Telephone [facility] [address] [place] [address] Jojo Ames PA 5Clinisync Result Encounter NOM[facility] External Department Unsolicited Jojo Ames PA 01/08/2025Telephone [facility] [address] [place] [address] Jojo Ames PA 5Abstract [facility] [address] [place] [address] Basim Martinez, from Last 3 Months Immunizations ImmunizationAdministration DatesNext LqsWwqg1512/25/2022 Family History Medical HistoryRelationNameCommentsDiabetesFatherGreg spearsHypertensionFather Delbert spearsThyroid diseaseFatherGreg spearsObesityMotherMary spearsSkin cancer MotherMary spearsThyroid diseaseMotherMary spearsDiabetesPaternal Grandfather Ayaan FristevanRelationNameStatusCommentsFatherGreg spearsAliveMotherMary nunez AlivePaternal GrandfatherLarry FritzSisterAlive Social History Tobacco UseTypesPacks/DayYears UsedDateSmoking Tobacco: FormerCigarettes0.53 Quit: 05/24/2024Smokeless Tobacco: Never Tobacco Cessation:Counseling Given: Not Answered Alcohol UseStandard Drinks/WeekCommentsNot Currently0 (1 standard drink = 0.6 oz pure alcohol)caffeine: 1-2 cups per day teaPHQ-2AnswerDate RecordedPatient Health Questionnaire-2 Imjta485Estimated Date of Delivery NsayvalpVrr94/06/2026ased on Est. Date of ConceptionSex and Gender Information ValueDate RecordedSex Assigned at BqlafNgpmpp31/04/2023 8:10 PM EDTLegal Sex Ishfln1401/17/2023 9:50 PM EDTGender XcemwuurWuaihf94/04/2023 8:10 PM EDTSexual OrientationNot on fileTravel HistoryTravel StartTravel JhyDwjqhtc90/22/2025 03/16/2025 Last Filed Vital Signs Vital SignReadingTime TakenCommentsBlood Waghqluy601/7612 10:43 AM EST Taltu661808/22/2024 10:04 AM EDTTemperature--Respiratory Uoon721808/22/2024 10:04 AM EDTOxygen Ngzvbksjgl47%08/22/2024 10:04 AM EDTInhaled Oxygen Concentration-- Msvyub557 kg (302 lb)04/02/2025 10:43 AM GOAZlrpag163.3 cm (5' 11 )08/22/2024 10:04 AM EDTBody Mass Index42.12008/22/2024 10:04 AM EDT Plan of Treatment DateTypeDepartmentCare Team (Latest Contact Info)Yazwbfmgidg37/06/2026 9:30 AM EDTOffice Visit [facility] [place] [facility] [address] [place] [address] Darleen Sinclair MD [address] [place] [address] Health MaintenanceDue DateLast DoneCommentsCOVID-19 Vaccine ( season) /07/2020, 07/22/2020Influenza Vaccine (#1)2024HPV/Cotest /, 10/28/2020, 10/16/2018Cervical Cancer Lcxdifmpv61/04/2027 Pap Smear, 11/02/2021neumococcal Vaccine: Pediatrics (0 to 5 Years) and At-Risk Patients (6 to 64 Years)Aged OutNo longer eligible based on patient's age to complete this topic Goals GoalPatient Goal TypeAssociated ProblemsRecent ProgressPatient-Stated?Author Reminders Care PlanOB RemindersNoOpen Scheduling, Background Procedures Procedure NamePriorityDate/TimeAssociated DiagnosisCommentsPOCT URINALYSIS SNIJPIHUQaatftz02/16/2025 10:44 AM EST Third trimester ([facility]) US OB BPP W NON-JEWCET6304/01/2025 2:43 PM EST POCT URINALYSIS FBHLYRDELufthll35/09/2025 2:08 PM EST 36 weeks gestation of ([facility]) Third trimester ([facility]) STREP GP B CULTURE+AZEWYsbfvbr03/09/2025 1:49 PM EST US OB BPP W NON-LJIVGV5303/25/2025 4:30 PM EST [facility] UA (CLEAN/CATCH) HUMAN DEVELOPMENT PROFESSOR/MICRO IF IND.Nxnoqyo2603/22/2025 8:50 PM EST US OB BPP W NON-QNMXTT1003/21/2025 3:52 PM EST POCT URINALYSIS DQEXUNRLHcebpkf68/02/2025 11:25 AM EST 35 weeks gestation of ([facility]) Third trimester ([facility]) US OB BPP W NON-OOJRVT4403/18/2025 4:09 PM EST US OB 14+ WEEKS ANATOMY SCAN03/05/2025 3:47 PM EST POCT URINALYSIS EMFQUGKCWmadngq77/18/2025 2:41 PM EST 33 weeks gestation of ([facility]) US OB BPP W NON-LULXHX7203/04/2025 9:40 PM EST US OB BPP W NON-ZIQRSE8002/26/2025 8:30 AM EST ALL THYROID STIM TPCWPGRCegnfkd57/04/2025 2:18 PM EST POCT URINALYSIS DGCUFJZCSnhhant58/04/2025 1:26 PM EST Third trimester ([facility]) POCT URINALYSIS SSATJIOCJrppnod00/22/2025 2:49 PM EDT 29 weeks gestation of ([facility]) US OB FOLLOW UP TRANSABDOMINAL VJENJNYGHxdrkbi02/15/2025 3:10 PM EDT TSH (thyroid-stimulating hormone deficiency) POCT URINALYSIS SNBJOAEEDysnogc93/01/2025 11:40 AM EDT 26 weeks gestation of ([facility]) ALL THYROID STIM YSQQRWIZyuxsvs45/26/2025 2:48 PM EDT GLUCOSE 1 AMCOAlvrzyz13/24/2025 12:00 PM EDT ALL CBC WITH AUTO NZERItsutwi63/24/2025 12:00 PM EDT PAP PMADHXbmvklo89/04/2024 12:00 AM ESTTHINPREP TIS PAP REFLEX HPV MRNA E6/E7 (27570)Lexmbpe3511/03/2021 from Last 3 Months or Most Recently [...] Location / LateralityCollection Method / VolumeCollection TimeReceived QywrGcjpc59/16/2025 10:44 AM EST Narrative Authorizing ProviderResult TypeResult StatusCorey Juan DOPOINT OF CARE TEST ENTER/EDIT ORDERABLESFinal Result * US OB BPP W NON-STRESS (04/01/2025 2:43 PM EST) Only the most recent of6 resultswithin the time period is included. Anatomical RegionLateralityModalityOtherSpecimen (Source)Anatomical Location / LateralityCollection Method / VolumeCollection TimeReceived Time04/01/2025 2:43 PM EST Narrative 04/01/2025 2:45 PM EST [facility] ?[address] ? [place] [address] ? Ultrasound Report ? Signed ? Patient: GUZMAN DEL CID Colt ?MR#: [id number] ?? : 1995 ?Acct:[id number] ?? Age/Sex: 30 / F ?ADM Date: 04/01/25 ?? Loc: US ? Attending Dr: Basim Martinez D.O. ? Ordering Physician: Basim Martinez D.O. ?? Date of Service: 04/01/25 ?? Procedure(s): US OB BPP w non-stress ?? Accession Number(s): [id number] ? cc: Basim Martinez D.O.; AMANDA FORD ? [facility] ? [address] ? [place] [address] ? Patient Name: ?? GUZMAN DEL CID ? MRN: [facility]:[id number] ? date: 1995 ?Sex: F ?? Assigned Patient Location: [facility] ?? Current Patient Location: ? Accession/Order Number: [id number] ?? Exam Date: 04/01/2025 ??14:03 ?Report Date: 04/01/2025 ??14:43 ? At the request of: ?? BASIM ??JUAN ??DO ? Procedure: ??US OB BPP w non-stress ? Biophysical profile. ? Reason for exam: Thyroid stimulating hormone deficiency ? COMPARISON: 03/25/2025 ? TECHNIQUE: Transabdominal imaging of the gravid uterus was obtained. ? FINDINGS: The bulb filler reports a BPP of 8 out of 8. ??STARR is normal at 14.2 ?? cm. ?? heart rate 130 bpm. ? US/US OB BPP w non-stress ?? IMPRESSION: BPP 8 out of 8. ? Impression dictated by: Sravan Dickinson Jr., D.ORenae ??04/01/2025 2:43 PM ? Dictation Location: RADIO-PC-22 ? Electronically authenticated by: [id number] ??Y ?? Date: 04/01/2025 ??14:43 ? Dictated By: ?Sravan Dickinson M.D. ? Signed By: ?04/01/25 1445 ? DD/ 1443 ? TD/TT: ? Hopper Operator: Procedure Note Radiology, Radiologist, MD - 04/01/2025 [place] [address] Ultrasound Report Signed Patient: GUZMAN DEL CID EMR#: [id number] : 1995Acct:[id number] Age/Sex: 30 / FADM Date: 04/01/25 Loc: US Attending Dr: Basim Martinez D.O. Ordering Physician: Basim Martinez D.O. Date of Service: 04/01/25 Procedure(s): US OB BPP w non-stress Accession Number(s): [id number] cc: Basim Martienz D.O.; AMANDA FORD [place] [id number] Patient Name: GUZMAN DEL CID MRN: [facility]:[id number] date: 1995 Sex: F Assigned Patient Location: [facility] Current Patient Location: Accession/Order Number: [id number] Exam Date: 04/01/2025 14:03 Report Date: 04/01/2025 14:43 At the request of: BASIM MARTINEZ DO Procedure: US OB BPP w non-stress Biophysical profile. Reason for exam: Thyroid stimulating hormone deficiency COMPARISON: 03/25/2025 TECHNIQUE: Transabdominal imaging of the gravid uterus was obtained. FINDINGS: The bulb filler reports a BPP of 8 out of 8. STARR is normal at14.2 cm. heart rate 130 bpm. US/US OB BPP w non-stress IMPRESSION: BPP 8 out of 8. Impression dictated by: Sravan Dickinson Jr., D.O. 04/01/2025 2:43 PM Dictation Location: [place] [address] Electronically authenticated by: [id number] Y Date: 4:43 Dictated By: Sravan Dickinson M.D. Signed By:04/01/25 1445 DD/ 144 TD/TT: Hopper Operator: Authorizing ProviderResult TypeResult StatusCorey Juan DOCLINISYNC [...] noted.TBHSTREP GP B CULTURE+RFLX Performed at: - [facility] B CULTURE+[id number] [place], [place] [id number] GP B CULTURE+RFLXLab Director: Isaac Dietz PhD, Phone: [phone] (Source)Anatomical Location / Laterality Collection Method / VolumeCollection TimeReceived Time03/26/2025 1:49 PM EST 03/26/2025 7:23 PM EST Narrative CLINISYNC - 03/31/2025 5:07 PM EST Authorizing ProviderResult TypeResult StatusAmy [facility] BLOOD ORDERABLES Final ResultPerforming OrganizationAddressCity/State/ZIP CodePhone Number CLINISYNC [facility] * (ABNORMAL) [facility] UA (CLEAN/CATCH) HUMAN DEVELOPMENT PROFESSOR/MICRO IF IND. (03/22/2025 8:50 PM EST) ComponentValueRef [...] PM EST THIS EXAM WAS PERFORMED AT [facility] NAME: ??MARIA EUGENIA HINDS : 1995 SEX: F Accession Number: [id number] ORDERING PHYSICIAN: BASIM MARTINEZ REFERRING PHYSICIAN: BASIM MARTINEZ Coding Procedures ? 11730: Ultrasound, uterus, real time with image documentation, follow up,transabdominal ? approach per fetus Indication resulting from assisted reproductive technology- IUI, History of Gastric sleeve, Obesity in . History OB History ? 1. Para 0 ? G9M3C1F6 Current Cell free DNA ?low risk analysis [...] (oz) ? 11 oz EFW by: ?Hadlock ([id number]-[id number]-FL) Extended Tibia ??54.8 mm 32w 2d 47% [employer] Operator ? 4.4 mm Head / Face [...] measures 7.3 cm. Recommendations Please see [facility] recommendations from prior clinical and/or ultrasound report documentation. Subsequent follow up or other follow up as clinically determined by primary OB provider unless otherwise specified by [facility]. Results forwarded to ordering provider so they can follow up with the patient as necessary. Procedure Note Radiology, Radiologist, MD - 03/05/2025 THIS EXAM WAS PERFORMED AT [facility] NAME: MARIA EUGENIA HINDS : 1995 SEX: F Accession Number: [id number] ORDERING PHYSICIAN: BASIM MARTINEZ REFERRING PHYSICIAN: BASIM MARTINEZ Coding Procedures 83049: Ultrasound, uterus, real time with image documentation, follow up, transabdominal approach per fetus Indication resulting from assisted reproductive technology- IUI, History of Gastric sleeve, Obesity in . History OB History 1. Para 0 K3E5P1H2 Current Cell free DNA low risk analysis [...] EFW (oz) 11 oz EFW by: Hadlock (SWZ-AP-ZT-FL) Extended Tibia 54.8 mm 32w 2d 47% [employer] Operator 4.4 mm Head / Face / [...] measures 7.3 cm. Recommendations Please see [facility] recommendations from prior clinical and/or ultrasoundreport documentation. Subsequent follow up or other follow up as clinically determined byprimary OB provider unless otherwise specified by [facility]. Results forwarded to ordering provider so they [...] DOCLINISYNCFinal Result Performing OrganizationAddressCity/State/ZIP CodePhone Number JEREMY [facility] * OB follow up transabdominal approach [...] RangeTest Method Analysis TimePerformed AtPathologist SignatureGLUCOSE 1 WUIZ027<130 mg/dLTBH Specimen (Source)Anatomical Location / LateralityCollection Method [...] 35.2 g/dLTBHTBH RDW13.211.0 - 15.0 % TBHTBH NQG111540 - 450 10 3/uLTBHTBH MPV8.7(L)9.5 - 13.5 [...] 12:31 PM EDT Authorizing ProviderResult TypeResult StatusAmy [place] PACLINISYNCFinal Result Performing OrganizationAddressCity/State/ZIP CodePhone Number CLINISYNC [facility] * Pap Smear (02/20/2024 12:00 AM EST)Specimen (Source)Anatomical Location / LateralityCollection Method / VolumeCollection TimeReceived TimeSwabCervical swab / Unknown Narrative Authorizing ProviderResult TypeResult StatusCorey Juan DOLAB CYTOLOGY ORDERABLESFinal ResultPerforming OrganizationAddressCity/State/ZIP CodePhone Number EXTERNAL LAB * THINPREP TIS PAP REFLEX HPV MRNA E6/E7 (11213) (11/03/2021)ComponentValueRef RangeTest MethodAnalysis TimePerformed AtPathologist SignatureCLINICAL INFORMATION:None givenNOMS LEGACY EXTERNAL LABLMP:None givenN[facility] LEGACY EXTERNAL LABPREV. PAP:None given[facility] LEGACY EXTERNAL LABPREV. BX:None given [facility] EXTERNAL LABSOURCE:Cervix, EndocervixNOMS [facility]TERNAL LAB STATEMENT OF ADEQUACY:SEE COMMENTNOCT LEGACY EXTERNAL LABComment: Satisfactory for evaluation. Endocervical/transformation zone component present. INTERPRETATION/RESULT:Negative for intraepithelial lesion or malignancy.[facility] EXTERNAL LABCOMMENT:This Pap test has been evaluated with computer assisted technology.[facility] LEGACY EXTERNAL LABCYTOTECHNOLOGIST:SEE COMMENTNOCT LEGACY EXTERNAL LABComment: [place], CT(ASCP) CT screening location: [place] [address]. COMMENTSEE COMMENTNOCT LEGACY EXTERNAL LABComment: EXPLANATORY NOTE: The Pap [...] INCORRECT, PLEASE CONTACT CLIENT SERVICES. PHONE NUMBER: [phone] Specimen (Source)Anatomical Location / LateralityCollection Method / Volume Collection TimeReceived Time11/03/2021 Narrative Authorizing ProviderResult TypeResult StatusMona Adama Nataprawi DOECW LABSFinal ResultPerforming OrganizationAddressCity/State/ZIP CodePhone Number [facility] from Last 3 Months or Most Recently Relevant to Health Maintenance Additional Health Concerns Active ProblemsNoted DateDiagnosed DateOB Kjxfopfql85/07/2025 Insurance Care Teams Team MemberRelationshipSpecialtyStart DateEnd Date Amanda Ford NP [facility] [place] [address] PCP - GeneralFamily Vsmmychg58/2/23
--- OUTSIDE RECORDS SUMMARY | 2025-04-07 21:54 | XMS_ITS | Clinical Summary ---
Author Organization [facility] Address [address] [place] [address] Phone Care Team Providers Care Sap Business Objects Developer Name Role Phone Unavailable Primary Care Provider Unavailabl e Social History Tobacco UseTypesPacks/DayYears UsedDateSmoking Tobacco: Never Assessed CommentsUnknownSex and Gender InformationValueDate RecordedSex Assigned at Not on fileLegal GzjVuklcp36/26/2024 8:23 AM EDTGender IdentityNot on fileSexual OrientationNot on file Plan of Treatment Health MaintenanceDue DateLast DoneCommentsHIV Mzuttxpte1995Lipid Panel 1995TSH Level1995MMR Vaccines (1 of 1 - Standard series)1996 Hepatitis C Nrqlqoocz47/17/2013Hepatitis B Vaccines (1 of 3 - 19+ 3-dose series) 2014HPV/Adjvjl9003/04/2016HPV Vaccines (1 - 3-dose standard series) 2022OVID-19 Vaccine ( - season)/07/2020, 07/22/2020 Influenza Vaccine (#1)2024early Adult Pqhplqns80/07/2023 Cervical Cancer Imtjpcxdx35/04/2027Pap Smear/4DTaP/Tdap/Td Vaccines (2 - Td or Tdap)/12/2022Zoster Vaccines [...]
[2025-04-07 22:05] VITALS: BP 133/71; PULSE 77
[2025-04-07 22:06] VITALS: BP 133/71; PULSE 77; TEMP 36.4
[2025-04-07 22:47] VITALS: BP 128/74; PULSE 74
[2025-04-07] MEDS: 0.9 % SODIUM CHLORIDE 1,000 ML 125 ML IV (22:49)
[2025-04-07 22:51] LABS: Hematocrit 34.0 % (36.0-48.0); Hemoglobin 11.5 g/dL (12.0-16.0); Mean Corpuscular HGB Conc 33.8 g/dL (29.9-35.2); Mean Corpuscular Hemoglobin 28.2 pg (26.7-34.0); Mean Corpuscular Volume 83.3 fL (81.0-99.0); Platelet Count 199 10^3/uL (150-450); Red Blood Count 4.08 10^6/uL (4.20-5.40); White Blood Count 12.4 10^3/uL (4.0-11.0)
[2025-04-07] MEDS: OXYTOCIN/0.9 % SODIUM CHLORIDE 10 UNITS/500 ML PLAST..BAG 6 UNIT IV (22:56)
[2025-04-07 23:14] LABS: Cannabinoid Screen Urine POSITIVE (NEGATIVE); Methamphetamines Screen Urine NEGATIVE (NEGATIVE); Tricyclic Antidepressant Urine NEGATIVE (NEGATIVE)
[2025-04-07 23:18] VITALS: BP 128/68; PULSE 66
[2025-04-07 23:47] VITALS: BP 120/57; PULSE 74
[2025-04-08] VITALS (64 sets, daily range): BP systolic 104–138; BP diastolic 51–89; PULSE 57–96; TEMP 36.6–36.7
[2025-04-08] MEDS: ACETAMINOPHEN 500 MG TABLET 1000 MG PO ×2 (05:13→16:41)
[2025-04-08] MEDS: 0.9 % SODIUM CHLORIDE 1,000 ML 125 ML IV ×2 (06:23→11:37)
[2025-04-08] MEDS: LEVOTHYROXINE SODIUM 25 MCG TABLET 50 MCG PO (06:27)
[2025-04-08] MEDS: 0.9 % SODIUM CHLORIDE 1,000 ML 1000 ML IV (08:12)
[2025-04-08] MEDS: ROPIVACAINE HCL/PF 400 MG/200 ML PREMIX 6 MG EPIDURAL (08:30)
[2025-04-08] MEDS: LAMOTRIGINE 100 MG TABLET 200 MG PO (09:12)
[2025-04-08] MEDS: IRON POLYSACCHARIDE COMPLEX 180 MG CAPSULE PO ×2 (09:28→23:20)
[2025-04-08] MEDS: OXYTOCIN/0.9 % SODIUM CHLORIDE 10 UNITS/500 ML PLAST..BAG 60 UNIT IV (10:21)
[2025-04-08] MEDS: OXYTOCIN/0.9 % SODIUM CHLORIDE 20 UNITS/1,000 ML PLAST..BAG 125 UNIT IV (14:20)
--- NOTE | 2025-04-08 14:27 | PM.OBPRCVD ---
Procedure Intrapartal events: None Induction method: per pitocin protocol Delivery augmentation: rupture of membranes and pitocin Delivery monitor: external FHT and external uterine Route of delivery: Episiotomy Description: none L&D Laceration Description: none Anesthesia type: Epidural Disposition: floor Delivery date: 04/08/25 Gender: female presentation: vertex Placental delivery description: Spontaneous cord description: 3 Vessels and Nuchal Cord
[2025-04-08] MEDS: SERTRALINE HCL 50 MG TABLET 25 MG PO (23:20)
[2025-04-08] MEDS: QUETIAPINE FUMARATE 25 MG TABLET PO (23:23)
[2025-04-09 01:37] VITALS: BP 117/72; PULSE 68
[2025-04-09 05:57] LABS: Hematocrit 28.6 % (36.0-48.0); Hemoglobin 9.4 g/dL (12.0-16.0); Immature Granulocytes Abs Auto 0.10 10^3/uL (0.00-0.03); Immature Granulocytes Pct Auto 1.1 % (0.0-0.5); Lymphocytes Absolute Auto 2.4 10^3/uL (1.2-3.8); Mean Corpuscular HGB Conc 32.9 g/dL (29.9-35.2); Mean Corpuscular Hemoglobin 27.9 pg (26.7-34.0); Mean Corpuscular Volume 84.9 fL (81.0-99.0); Platelet Count 132 10^3/uL (150-450); Red Blood Count 3.37 10^6/uL (4.20-5.40); White Blood Count 8.7 10^3/uL (4.0-11.0)
[2025-04-09] MEDS: LEVOTHYROXINE SODIUM 25 MCG TABLET 50 MCG PO (07:13)
--- NOTE | 2025-04-09 07:36 | PM.OBPN ---
OB - PN: Subj Subjective Patient comments: no complaints and pain well controlled status: doing well Exam Constitutional Vital Signs, click to edit/add: Last Vital Signs Temp 97.9 F 04/08/25 13:09 Pulse 68 04/09/25 01:37 Resp 18 04/08/25 04:04 BP 117/72 04/09/25 01:37 O2 Del Method Room Air 04/09/25 01:30 Documenting provider has reviewed patient's vital signs: yes Common normals: no apparent distress Respiratory Common normals: normal respiratory effort and clear to auscultation bilaterally Cardio Common normals: regular rate and regular rhythm GI Common normals: Normal to inspection, nondistended, normoactive bowel sounds present Extremity Common normals: no clubbing, cyanosis or edema and no calf tenderness Results Labs Labs: Short CBC 04/09/25 Range/Units 05:48 WBC 8.7 (4.0-11.0) 10^3/uL Hgb 9.4 L (12.0-16.0) g/dL Hct 28.6 L (36.0-48.0) % Plt Count 132 L (150-450) 10^3/uL OB - PN: A/P Plan - Vaginal Delivery day: 1 Plan: routine care Time Spent with Patient Time: Total time spent is greater than 50% in coordination of care (as documented) at patient's floor/unit and/or counseling patient: Total time spent with greater than 50% in coordination of care (as documented) at patient's floor/unit and/or counseling patient: less than 15 minutes
[2025-04-09 08:36] VITALS: BP 124/78; PULSE 69; TEMP 36.6
[2025-04-09] MEDS: DOCUSATE SODIUM 100 MG CAPSULE PO ×2 (11:22→22:24)
[2025-04-09] MEDS: IRON POLYSACCHARIDE COMPLEX 180 MG CAPSULE PO ×2 (11:23→22:19)
[2025-04-09] MEDS: LAMOTRIGINE 100 MG TABLET 200 MG PO (11:24)
[2025-04-09] MEDS: IBUPROFEN 600 MG TABLET PO ×2 (11:27→22:19)
[2025-04-09 15:55] VITALS: BP 121/77; PULSE 65; PULSE 66; TEMP 36.7
[2025-04-09 22:19] VITALS: BP 123/72; PULSE 61
[2025-04-09] MEDS: SERTRALINE HCL 50 MG TABLET 25 MG PO (22:20)
[2025-04-09] MEDS: QUETIAPINE FUMARATE 25 MG TABLET PO (22:21)
[2025-04-10] MEDS: LEVOTHYROXINE SODIUM 25 MCG TABLET 50 MCG PO (06:33)
--- NOTE | 2025-04-10 06:51 | PM.OBPN ---
OB - PN: Subj Subjective Patient comments: no complaints and pain well controlled [place] status: doing well Exam Constitutional Vital Signs, click to edit/add: Last Vital Signs Temp 98.0 F 04/09/25 15:55 Pulse 61 04/09/25 22:19 Resp 17 04/09/25 22:25 BP 123/72 04/09/25 22:19 O2 Del Method Room Air 04/09/25 22:25 Documenting provider has reviewed patient's vital signs: yes Common normals: no apparent distress Respiratory Common normals: normal respiratory effort and clear to auscultation bilaterally Cardio Common normals: regular rate and regular rhythm GI Common normals: Normal to inspection, nondistended, normoactive bowel sounds present Extremity Common normals: no clubbing, cyanosis or edema and no calf tenderness OB - PN: A/P Plan - Vaginal Delivery day: 2 Plan: routine care, discharge home and follow up 6 weeks Time Spent with Patient Time: Total time spent is greater than 50% in coordination of care (as documented) at patient's floor/unit and/or counseling patient: Total time spent with greater than 50% in coordination of care (as documented) at patient's floor/unit and/or counseling patient: less than 15 minutes
[2025-04-10 09:18] VITALS: BP 120/59; PULSE 62; TEMP 36.7
[2025-04-10] MEDS: IRON POLYSACCHARIDE COMPLEX 180 MG CAPSULE PO (10:30)
[2025-04-10] MEDS: LAMOTRIGINE 100 MG TABLET 200 MG PO (10:30)
[2025-04-10] MEDS: DOCUSATE SODIUM 100 MG CAPSULE PO (15:01)
== END 2025-04-10 15:00 | disposition home or self-care (01) | DRG 560 ==
PROVIDERS: Admitting Provider Obstetrics & Gynecology; PCP Nurse Practitioner Family; Visit Provider Obstetrics & Gynecology
DX: O99.284 Endocrine, nutritional and metabolic diseases complicating childbirth (principal); O69.81X0 Labor and delivery complicated by cord around neck, without compression, not applicable or unspecified; Z3A.37 37 weeks gestation of pregnancy; Z37.0 Single live birth
CPT/HCPCS: 36415; 51702; 59025; 59050; 59410; 80307; 80349; 85025; 85027; 86850; 86900; 86901; J2795

== ENCOUNTER 2025-04-15 08:15 | Outpatient (OUT) | payer MEDICAID, SELFPAY ==
--- OUTSIDE RECORDS SUMMARY | 2024-04-25 08:30 | XMS_ITS ---
Author Organization [facility] Address [address] [place] [address] Care Team Providers Care Customer Quality Engineer Name Role Phone Tabitha Zamora Primary Care Provider Jennifer Hahn Unavailable [phone] Julieta Jefferson [phone] REASON FOR VISIT 3 month f/u Encounters Encounter Location Date Provider Diagnosis [facility] [address] [place] [address] 04/25/2024 Julieta Jefferson Plan Of Treatment Next Appt Details Provider Name:Tabitha levin, 04/19/2025 10:45:00 AM, [address] [place], [address], Provider Name:Tabitha levin, 05/03/2025 08:30:00 AM, [address] [place], [address], Progress Notes * GUZMAN DEL CIDDOB: 5 (30 yo F)Acc No.[id number]:04/25/2024 Behavioral Health Patient: GUZMAN AMES Provider:?Julieta JeffersonDOB:1995???Age:29 Y ???Sex:FemaleDate:04/25/2024Phone:[phone]:[address], [place]-[id number]:Tabitha Zamora Subjective: * Chief Complaints: * 3 month f/u * Electronic signature of Julieta Jefferson , NELIDA, MIDDLE SCHOOL ENGLISH TEACHER on 04/15/2025 at 08:23 AM EST Sign off status: Pending * Appointment Provider: Adin Jefferson Date: 0 04/25/2024 Generated for Printing/Faxing/eTransmitting on:?04/15/2025 08:23 AM EST
--- OUTSIDE RECORDS SUMMARY | 2024-07-25 05:30 | XMS_ITS ---
Author Organization [facility] es Address [address] [place] [address] Care Team Providers Care Special Forces Engineer Sergeant Name Role Phone Tabitha Zamora Primary Care Provider Jennifer Hahn Unavailable [phone] Julieta Jefferson [phone] REASON FOR VISIT 3 month f/u Encounters Encounter Location Date Provider Diagnosis [facility] [address] [place] [address] 07/25/2024 Julieta Jefferson Plan Of Treatment Next Appt Details Provider Name:Tabitha levin, 04/19/2025 10:45:00 AM, [address] [place], [address], Provider Name:Tabitha levin, 05/03/2025 08:30:00 AM, [address] [place], [address], Progress Notes * GUZMAN DEL CIDDOB: 5 (30 yo F)Acc No.[id number]:07/25/2024 Behavioral Health Patient: GUZMAN AMES Provider:?Julieta ReyezB:1995???Age:29 Y ???Sex:FemaleDate:07/25/2024Phone:[phone]:[address], [place]-[id number]:Tabitha Zamora Subjective: * Chief Complaints: * 3 month f/u * Electronic signature of NELIDA Newell, ECONOMICS CONSULTANT on 04/15/2025 at 08:23 AM EST Sign off status: Pending * Appointment Provider: Adin Jefferson Date: 0 07/25/2024 Generated for Printing/Faxing/eTransmitting on:?04/15/2025 08:23 AM EST
--- OUTSIDE RECORDS SUMMARY | 2025-03-29 05:00 | XMS_ITS ---
Author Organization [facility] es Address [address] [place] [address] Care Team Providers Care Wharf Operator Name Role Phone Tabitha Zamora Primary Care Provider Claudia Hahn Unavailable [phone] REASON FOR VISIT FAHEEM FROM CLAUDIA Encounters Encounter Location Date Provider Diagnosis [facility] [address] [place] [address] 03/29/2025 Tabitha Zamora Plan Of Treatment Next Appt Details Provider Name:Tabitha levin, 04/19/2025 10:45:00 AM, [address] [place], [address], Provider Name:Tabitha levin, 05/03/2025 08:30:00 AM, [address] [place], [address], Progress Notes * GUZMAN DEL CIDDOB: 5 (30 yo F)Acc No.[id number]:03/29/2025 Behavioral Health Patient: GUZMAN AMES :?Tabitha ZamoraDOB:1995???Age:30 Y???Sex: FemaleDate:03/29/2025Phone:[phone]:[address], [phone] Subjective: * Chief Complaints: * T OC FROM CLAUDIA * Electronic signature of Tabitha Zamora , JULIETHNP on 04/15/2025 at 08:23 AM EST Sign off status: Pending * Provider: Chaparro Zamora Date: 1 05/30/2024 Generated for Printing/Faxing/eTransmitting on:?04/15/2025 08:23 AM EST
--- OUTSIDE RECORDS SUMMARY | 2025-04-02 10:00 | XMS_ITS | Encounter Summary ---
Author Organization [facility] Address [address] [place] [address] Care Team Providers Care Devulcanizer Charger Name Role Phone Amanda Ford PLATE FURNACE OPERATOR Primary Care Provider Reason for Visit * ReasonCommentsRoutine Visit Encounter Details DateTypeDepartmentCare Team (Latest Contact Info)Zbpiyelvgdc67/16/2025 10:00 AM ESTRoutine [facility] [address] [place] [address] Les Martinez DO [address] [place] [address] Third trimester ([facility]); 37 weeks gestation of ([facility]); Conceived by in vitro fertilization; Thyroid disease; H/O gastric sleeve; H/O iron deficiency anemia Social History Tobacco UseTypesPacks/DayYears UsedDateSmoking Tobacco: FormerCigarettes0.53 Quit: 05/24/2024Smokeless Tobacco: NeverAlcohol UseStandard Drinks/WeekComments Not Currently0 (1 standard drink = 0.6 oz pure alcohol)caffeine: 1-2 cups per day teaPHQ-2AnswerDate RecordedPatient Health Questionnaire-2 Ountf083 Estimated Date of WzlqwiclQqabnuwnGxu10/06/2026ased on Est. Date of ConceptionSex and Gender InformationValueDate RecordedSex Assigned at Gozppb8901/19/2023 8:10 PM EDTLegal EzeGyyvho10/02/2023 9:50 PM EDTGender Identity Zgvgpn2001/19/2023 8:10 PM EDTSexual OrientationNot on fileTravel HistoryTravel StartTravel OjvInlmclj07/22/237840/documented as of this encounter Last Filed Vital Signs Vital SignReadingTime TakenCommentsBlood Cqubisra724/7604/02/2025 10:43 AM EST Pulse--Temperature--Respiratory Rate--Oxygen Saturation--Inhaled Oxygen Concentration--Lvhyco221 kg (302 lb)04/02/2025 10:43 AM ESTHeight--Body Mass [...] gastric sleeve 03/06/2025 33 weeks gestation of ([facility]) 03/06/2025 Third trimester ([facility]) 03/06/2025 Conceived by in vitro fertilization 04/02/2025 Resolved Ambulatory Problems Diagnosis Date Noted No Resolved Ambulatory Problems Past Medical History: Diagnosis Date Abnormal results of thyroid function studies ADD (attention deficit disorder) Anemia Bariatric surgery status Bipolar disorder ([facility]) Dysmenorrhea Female infertility Functional enuresis GERD (gastroesophageal [...] is . Assessment/Plan ICD-10-CM 1. Third trimester ([facility]) Z34.93 POCT urinalysis dipstick manually resulted 2. 37 weeks gestation of ([facility]) Z3A.37 3. Conceived by in vitro fertilization [...] Plan of Treatment DateTypeDepartmentCare Team (Latest Contact Info)Nwgvpencnre44/06/2026 9:30 AM EDTOffice Visit [facility] [address] [place] [address] Darleen Sinclair MD [address] [place] [address] documented as of this encounter Goals GoalPatient Goal TypeAssociated ProblemsRecent ProgressPatient-Stated?Author Reminders Care PlanOB RemindersNoOpen Scheduling, Backgrounddocumented as of this encounter Procedures Procedure NamePriorityDate/TimeAssociated DiagnosisCommentsPOCT URINALYSIS DCBBKKBSEfvaoyx11/16/2025 10:44 AM EST Third trimester ([facility]) documented in this encounter Results * POCT [...] Additional Health Concerns Active ProblemsNoted DateDiagnosed DateOB Akwboaidt60/07/2025 documented as of this encounter Care Teams Team MemberRelationshipSpecialtyStart DateEnd Date Amanda Ford NP [address] [place] [address] [place] [address] PCP - GeneralFamily Wonwgacl56/2/23documented as of this encounter
--- OUTSIDE RECORDS SUMMARY | 2025-04-15 08:23 | XMS_ITS | Encounter Summary ---
Author Organization [facility] Address [address] [place] [address] Care Team Providers Care Signaling Design Engineer Name Role Phone Amanda Ford PRESS BOX CUSTODIAN Primary Care Provider Encounter Details DateTypeDepartmentCare Team (Latest Contact Info)Ubuvocodqsg43/22/2025Patient Outreach [facility] [address] [place] [place] [address] Jojo Be, YANDEL [address], [place] [phone] Social History Tobacco UseTypesPacks/DayYears UsedDateSmoking Tobacco: FormerCigarettes0.53 Quit: 05/24/2024Smokeless Tobacco: NeverAlcohol UseStandard Drinks/WeekComments Not Currently0 (1 standard drink = 0.6 oz pure alcohol)caffeine: 1-2 cups per day teaPHQ-2AnswerDate RecordedPatient Health Questionnaire-2 Zgfwu392 Estimated Date of OeufcasrGrqmuusjFug98/06/2026ased on Est. Date of ConceptionSex and Gender InformationValueDate RecordedSex Assigned at Yykcrs8901/19/2023 8:10 PM EDTLegal ZkbKmyznq07/02/2023 9:50 PM EDTGender Identity Wutlyt5001/19/2023 8:10 PM EDTSexual OrientationNot on fileTravel HistoryTravel StartTravel UmuWjyyeht32/22/75769505/16/2024documented as of this encounter Progress Notes * Jojo Be LPN - 04/08/2025 1:24 PM EST Monthly outreach skipped due to pt currently inpatient. documented in this encounter Plan of Treatment DateTypeDepartmentCare Team (Latest Contact Info)Dfqtwcenzcb07/06/2026 9:30 AM EDTOffice Visit [facility] [address] [place] [address] Darleen Sinclair MD [address] [place] [address] documented as of this encounter Goals GoalPatient Goal TypeAssociated ProblemsRecent ProgressPatient-Stated?Author Reminders Care PlanOB RemindersNoOpen Scheduling, Backgrounddocumented as of this encounter Visit Diagnoses Not on filedocumented in this encounter Additional Health Concerns Active ProblemsNoted DateDiagnosed DateOB Peyqgncct16/07/2025 documented as of this encounter Care Teams Team MemberRelationshipSpecialtyStart DateEnd Date Amanda Ford NP [facility] [place] [address] PCP - GeneralFamily Bayceupu83/2/23documented as of this encounter
--- OUTSIDE RECORDS SUMMARY | 2025-04-15 08:23 | XMS_ITS | Encounter Summary ---
Author Organization [facility] Address [address] [place] [address] Care Team Providers Care Manager Rfid Name Role Phone Amanda Ford SEARCH OPTIMIZATION ANALYST Primary Care Provider Encounter Details DateTypeDepartmentCare Team (Latest Contact Info)Oxuvzzthqyw33/09/2025Clinisync Result Encounter [facility] External Department Unsolicited Jojo Ames PA [address] [place] [address] [address] [place], [place] [id number] Social History Tobacco UseTypesPacks/DayYears UsedDateSmoking Tobacco: FormerCigarettes0.53 Quit: 05/24/2024Smokeless Tobacco: NeverAlcohol UseStandard Drinks/WeekComments Not Currently0 (1 standard drink = 0.6 oz pure alcohol)caffeine: 1-2 cups per day teaPHQ-2AnswerDate RecordedPatient Health Questionnaire-2 Sqqbz328 Estimated Date of CwrirvftSksuybvxQmc28/06/2026Based on Est. Date of ConceptionSex and Gender InformationValueDate RecordedSex Assigned at Lddhuv0201/19/2023 8:10 PM EDTLegal DxnNoogpx68/02/2023 9:50 PM EDTGender Identity Rpegvs7601/19/2023 8:10 PM EDTSexual OrientationNot on fileTravel HistoryTravel StartTravel QyyYrsqgam04documented as of this encounter Plan of Treatment DateTypeDepartmentCare Team (Latest Contact Info)Gjcjlegynak91/06/2026 9:30 AM EDTOffice Visit [facility] [address] [place] [phone] Darleen Sinclair MD [address] [place] [address] documented as of this encounter Goals GoalPatient Goal TypeAssociated ProblemsRecent ProgressPatient-Stated?Author Reminders Care PlanOB RemindersNoOpen Scheduling, Backgrounddocumented as of this encounter Procedures Procedure NamePriorityDate/TimeAssociated DiagnosisCommentsSTREP GP B CULTURE+UBGKSpmizht43/09/2025 1:49 PM EST documented in this encounter [...] GP B CULTURE+RFLX [facility]formed at[facility]+[id number] [place], [place] [id number] GP B CULTURE+RFLXLab Director: Isaac Dietz PhD, Phone: [phone] (Source)Anatomical Location / Laterality Collection Method / VolumeCollection TimeReceived Time03/26/2025 1:49 PM EST 03/26/2025 7:23 PM EST Narrative [facility] - 03/31/2025 5:07 PM EST Authorizing ProviderResult TypeResult StatusAmy Kwaku PALAB BLOOD ORDERABLES Final ResultPerforming OrganizationAddressCity/State/ZIP CodePhone Number [facility] TB documented in this encounter Visit Diagnoses Not on filedocumented in this encounter Additional Health Concerns Active ProblemsNoted DateDiagnosed DateOB Cvnchsszd74/07/2025 documented as of this encounter Care Teams Team MemberRelationshipSpecialtyStart DateEnd Date Amanda Ford NP [address] [place] [address] PCP - GeneralFamily Oloweeqr17/2/23documented as of this encounter
--- OUTSIDE RECORDS SUMMARY | 2025-04-15 08:23 | XMS_ITS | Encounter Summary ---
Author Organization [facility] Address [address] [place] [address] Care Team Providers Care Helicopter Crew Chief Name Role Phone Amanda Ford FOLDING MACHINE SETTER Primary Care Provider Encounter Details DateTypeDepartmentCare Team (Latest Contact Info)Zuqltbmaudz40/16/2025Bamboo flowsheet [facility] [address] [facility] [place] [address] Les Martinez DO [address] [facility] [address] [place], [facility] Social History Tobacco UseTypesPacks/DayYears UsedDateSmoking Tobacco: FormerCigarettes0.53 Quit: 05/24/2024Smokeless Tobacco: NeverAlcohol UseStandard Drinks/WeekComments Not Currently0 (1 standard drink = 0.6 oz pure alcohol)caffeine: 1-2 cups per day teaPHQ-2AnswerDate RecordedPatient Health Questionnaire-2 Pumue309 Estimated Date of PkygskwbLazxqozvLpu52/06/2026Based on Est. Date of ConceptionSex and Gender InformationValueDate RecordedSex Assigned at Xbhjff3501/19/2023 8:10 PM EDTLegal TlwLqypvh98/02/2023 9:50 PM EDTGender Identity Ucmkwm2401/19/2023 8:10 PM EDTSexual OrientationNot on fileTravel HistoryTravel StartTravel IdgEncwrlt58/22/800442/documented as of this encounter Plan of Treatment DateTypeDepartmentCare Team (Latest Contact Info)Xaostdiylgt29/06/2026 9:30 AM EDTOffice Visit [facility] [address] [place] [address] Darleen Sinclair MD [address] [place] [address] documented as of this encounter Goals GoalPatient Goal TypeAssociated ProblemsRecent ProgressPatient-Stated?Author Reminders Care PlanOB RemindersNoOpen Scheduling, Backgrounddocumented as of this encounter Visit Diagnoses Not on filedocumented in this encounter Additional Health Concerns Active ProblemsNoted DateDiagnosed DateOB Akqmqaubo97/07/2025 documented as of this encounter Care Teams Team MemberRelationshipSpecialtyStart DateEnd Date Amanda Ford NP [address] [place] [address] PCP - GeneralFamily Fruospmu77/2/23documented as of this encounter
--- OUTSIDE RECORDS SUMMARY | 2025-04-15 08:23 | XMS_ITS | Encounter Summary ---
Author Organization [facility] Address [address] [place] [address] Care Team Providers Care Filler Block Inserter Remover Name Role Phone Amanda Ford EMERGENCY MEDCL EMT Primary Care Provider Encounter Details DateTypeDepartmentCare Team (Latest Contact Info)Uoyldmkoigc20/15/2025Travel Social History Tobacco UseTypesPacks/DayYears UsedDateSmoking Tobacco: FormerCigarettes0.53 Quit: 05/24/2024Smokeless Tobacco: NeverAlcohol UseStandard Drinks/WeekComments Not Currently0 (1 standard drink = 0.6 oz pure alcohol)caffeine: 1-2 cups per day teaPHQ-2AnswerDate RecordedPatient Health Questionnaire-2 Gfydc369 Estimated Date of VqgsponpJwhwwkqhYbh15/06/2026ased on Est. Date of ConceptionSex and Gender InformationValueDate RecordedSex Assigned at Mrynrs2901/19/2023 8:10 PM EDTLegal BhlTrqllt56/02/2023 9:50 PM EDTGender Identity Ualnve2901/19/2023 8:10 PM EDTSexual OrientationNot on fileTravel HistoryTravel StartTravel AcgCcfltlj97/22/301713/documented as of this encounter Plan of Treatment DateTypeDepartmentCare Team (Latest Contact Info)Kysprtifxax13/06/2026 9:30 AM EDTOffice Visit [facility] [address] [place] [address] Darleen Sinclair MD [address] [place] [address] documented as of this encounter Goals GoalPatient Goal TypeAssociated ProblemsRecent ProgressPatient-Stated?Author Reminders Care PlanOB RemindersNoOpen Scheduling, Backgrounddocumented as of this encounter Visit Diagnoses Not on filedocumented in this encounter Additional Health Concerns Active ProblemsNoted DateDiagnosed DateOB Bnrcajenr04/07/2025 documented as of this encounter Care Teams Team MemberRelationshipSpecialtyStart DateEnd Date Amanda Ford NP [address] [place] [address] [place] [address] PCP - GeneralFamily Zmiiuasq14/2/23documented as of this encounter
--- OUTSIDE RECORDS SUMMARY | 2025-04-15 08:23 | XMS_ITS | Encounter Summary ---
Author Organization [facility] Address [address] [place] [address] Care Team Providers Care Appeals Referee Name Role Phone Amanda Hewitt GROWTH HACKER Primary Care Provider Encounter Details DateTypeDepartmentCare Team (Latest Contact Info)Jobkagvocmh07/15/2025Clinisync Result Encounter [facility] External Department Unsolicited Basim Martinez, DO [address] [facility] [address] [place], [place] [phone] Social History Tobacco UseTypesPacks/DayYears UsedDateSmoking Tobacco: FormerCigarettes0.53 Quit: 05/24/2024Smokeless Tobacco: NeverAlcohol UseStandard Drinks/WeekComments Not Currently0 (1 standard drink = 0.6 oz pure alcohol)caffeine: 1-2 cups per day teaPHQ-2AnswerDate RecordedPatient Health Questionnaire-2 Ilmrd952 Estimated Date of CalwvaffYuoqiqkfMua59/06/2026ased on Est. Date of ConceptionSex and Gender InformationValueDate RecordedSex Assigned at Lnrfxu9201/19/2023 8:10 PM EDTLegal OkiQiknyv40/02/2023 9:50 PM EDTGender Identity Eamrzq0201/19/2023 8:10 PM EDTSexual OrientationNot on fileTravel HistoryTravel StartTravel MfdRthiqlm95/22/202511/documented as of this encounter Plan of Treatment DateTypeDepartmentCare Team (Latest Contact Info)Wwipzxvmjyv63/06/2026 9:30 AM EDTOffice Visit [facility] [address] [place] [address] Darleen Sinclair MD [address] [place] [address] documented as of this encounter Goals GoalPatient Goal TypeAssociated ProblemsRecent ProgressPatient-Stated?Author Reminders Care PlanOB RemindersNoOpen Scheduling, Backgrounddocumented as of this encounter Procedures Procedure NamePriorityDate/TimeAssociated DiagnosisCommentsUS OB BPP W NON-RCWPMX8104/01/2025 2:43 PM EST documented in this encounter Results * US OB BPP W NON-STRESS (04/01/2025 2:43 PM EST)Anatomical Region LateralityModalityOtherSpecimen (Source)Anatomical Location / Laterality Collection Method / VolumeCollection TimeReceived Time04/01/2025 2:43 PM EST Narrative 04/01/2025 2:45 PM EST [facility] ?[address] ? [place] [address] ? Ultrasound Report ? Signed ? Patient: GUZMAN DEL CID ?MR#: [id number] ?? : 1995 ?Acct:[id number] ?? Age/Sex: 30 / F ?ADM Date: 04/01/25 ?? Loc: US ? Attending Dr: Basim Martinez D.O. ? Ordering Physician: Basim Martinez D.O. ?? Date of Service: 04/01/25 ?? Procedure(s): US OB BPP w non-stress ?? Accession Number(s): [id number] ? cc: Basim Martinez D.O.; AMANDA HEWITT ? [facility] ? [address] ? [place] [address] ? Patient Name: ?? GUZMAN DEL CID ? MRN: [id number] ? date: 1995 ?Sex: F ?? Assigned Patient Location: [facility] ?? Current Patient Location: ? Accession/Order Number: [id number] ?? Exam Date: 04/01/2025 ??14:03 ?Report Date: 04/01/2025 ??14:43 ? At the request of: ?? BASIM ??JUAN ??DO ? Procedure: ??US OB BPP w non-stress ? Biophysical profile. ? Reason for exam: Thyroid stimulating hormone deficiency ? COMPARISON: 03/25/2025 ? TECHNIQUE: Transabdominal imaging of the gravid uterus was obtained. ? FINDINGS: The engineering lecturer reports a BPP of 8 out of 8. ??STARR is normal at 14.2 ?? cm. ?? heart rate 130 bpm. ? US/US OB BPP w non-stress ?? IMPRESSION: BPP 8 out of 8. ? Impression dictated by: Sravan Dickinson Jr., D.O. ??04/01/2025 2:43 PM ? Dictation Location: RADIO-PC-22 ? Electronically authenticated by: [id number] ??Y ?? Date: 04/01/2025 ??14:43 ? Dictated By: ?Sravan Dickinson M.D. ? Signed By: ?04/01/255 ? DD/ 1443 ? TD/TT: ? Manager Planning: Procedure Note Radiology, Radiologist, MD - 04/01/2025 [place] [address] Ultrasound Report Signed Patient: GUZMAN DEL CID EMR#: [id number] : 1995Acct:[id number] Age/Sex: 30 / FADM Date: 04/01/25 Loc: US Attending Dr: Basim Martinez D.O. Ordering Physician: Basim Mratinez D.O. Date of Service: 04/01/25 Procedure(s): US OB BPP w non-stress Accession Number(s): [id number] cc: Basim Martinez D.O.; AMANDA HEWITT [address] [address] Patient Name: GUZMAN DEL CID MRN: [id number] date: 1995 Sex: F Assigned Patient Location: [facility] Current Patient Location: Accession/Order Number: [id number] Exam Date: 04/01/2025 14:03 Report Date: 04/01/2025 14:43 At the request of: BASIM MARTINEZ DO Procedure: US OB BPP w non-stress Biophysical profile. Reason for exam: Thyroid stimulating hormone deficiency COMPARISON: 03/25/2025 TECHNIQUE: Transabdominal imaging of the gravid uterus was obtained. FINDINGS: The engineering lecturer reports a BPP of 8 out of 8. STARR is normal at14.2 cm. heart rate 130 bpm. US/US OB BPP w non-stress IMPRESSION: BPP 8 out of 8. Impression dictated by: Sravan Dickinson Jr., D.O. 04/01/2025 2:43 PM Dictation Location: [place] [address] Electronically authenticated by: [id number] Y Date: 4:43 Dictated By: Sravan Dickinson M.D. Signed By:04/01/25 1445 DD/ 42 TD/TT: Manager Planning: Authorizing ProviderResult TypeResult StatusCorey Juan DOCLINISYNC IMAGINGFinal Result documented in this encounter Visit Diagnoses Not on filedocumented in this encounter Additional Health Concerns Active ProblemsNoted DateDiagnosed DateOB Awzoswqer58/07/2025 documented as of this encounter Care Teams Team MemberRelationshipSpecialtyStart DateEnd Date Amanda Hewitt NP [address] [place] [address] PCP - GeneralFamily Iapacckb68/2/23documented as of this encounter
--- OUTSIDE RECORDS SUMMARY | 2025-04-15 08:23 | XMS_ITS | Encounter Summary ---
Author Organization [facility] Address [address] [place] [address] Care Team Providers Care Clinical Sales Consultant Name Role Phone Amanda Ford BOX PRINTING MACHINE OPERATOR Primary Care Provider Encounter Details DateTypeDepartmentCare Team (Latest Contact Info)Pddnvotrero51/16/2025bstract [facility] [address] [facility] [place] [address] Les Martinez DO [address] [facility] [place] [address] Social History Tobacco UseTypesPacks/DayYears UsedDateSmoking Tobacco: FormerCigarettes0.53 Quit: 05/24/2024Smokeless Tobacco: NeverAlcohol UseStandard Drinks/WeekComments Not Currently0 (1 standard drink = 0.6 oz pure alcohol)caffeine: 1-2 cups per day teaPHQ-2AnswerDate RecordedPatient Health Questionnaire-2 Xojwx085 Estimated Date of NpikpqyeAddvmqmiBgq84/06/2026ased on Est. Date of ConceptionSex and Gender InformationValueDate RecordedSex Assigned at Hzigsy3401/19/2023 8:10 PM EDTLegal HptJxyilu94/02/2023 9:50 PM EDTGender Identity Zrjbas6701/19/2023 8:10 PM EDTSexual OrientationNot on fileTravel HistoryTravel StartTravel AanEytcmau81/22/17365905/16/2024documented as of this encounter Plan of Treatment DateTypeDepartmentCare Team (Latest Contact Info)Uljtuonqwhb09/06/2026 9:30 AM EDTOffice Visit [facility] [address] [place] [address] Darleen Sinclair MD [address] [place] [address] documented as of this encounter Goals GoalPatient Goal TypeAssociated ProblemsRecent ProgressPatient-Stated?Author Reminders Care PlanOB RemindersNoOpen Scheduling, Backgrounddocumented as of this encounter Visit Diagnoses Not on filedocumented in this encounter Additional Health Concerns Active ProblemsNoted DateDiagnosed DateOB Ouewooeif57/07/2025 documented as of this encounter Care Teams Team MemberRelationshipSpecialtyStart DateEnd Date Amanda Ford NP [address] [place] [address] PCP - GeneralFamily Fjxrdtpp83/2/23documented as of this encounter
--- OUTSIDE RECORDS SUMMARY | 2025-04-15 08:23 | XMS_ITS | Encounter Summary ---
Author Organization [facility] Address [address] [place] [address] Care Team Providers Care Feed Manager Name Role Phone Amanda Ford AVIATION MEDICINE SPECIALIST Primary Care Provider Encounter Details DateTypeDepartmentCare Team (Latest Contact Info)Zcwyxamqlww04/26/2025Patient Outreach [facility] [address] [place] [phone] Jojo Be, YANDEL [address] [place], [place] [address] Social History Tobacco UseTypesPacks/DayYears UsedDateSmoking Tobacco: FormerCigarettes0.53 Quit: 05/24/2024Smokeless Tobacco: NeverAlcohol UseStandard Drinks/WeekComments Not Currently0 (1 standard drink = 0.6 oz pure alcohol)caffeine: 1-2 cups per day teaPHQ-2AnswerDate RecordedPatient Health Questionnaire-2 Tglzt53106/13/2024 Estimated Date of IlmheirbRsupzwbyXan68/06/2026ased on Est. Date of ConceptionSex and Gender InformationValueDate RecordedSex Assigned at Ibhmip7701/19/2023 8:10 PM EDTLegal OwiMvnrud75/02/2023 9:50 PM EDTGender Identity Lcdael3701/19/2023 8:10 PM EDTSexual OrientationNot on fileTravel HistoryTravel StartTravel IynAtvsvft55/22/202511/2025documented as of this encounter Functional Status * Over the past 2 weeks, how often have you been bothered by any of the following problems?QuestionAnswerDate of AssessmentAuthorLittle interest or pleasure in doing thingsNot at all04/12/2025 10:16 AM Jojo Roman LPN Feeling down, depressed, or hopelessNot at all04/12/2025 10:16 AM Jojo Roman LPNPatient Health Questionnaire-2 Mbxev56506/13/2024 10:16 AM Jojo Roman LPN documented as of this encounter Progress Notes * Jojo Be LPN - 04/12/2025 10:10 AM EST Flowsheet Row Patient Outreach from 04/12/2025 in [facility] with Jojo Be LPN Hospital Information ED, Hospital or Usp Facility Discharge? Hospital Patient has been contacted within two business days of discharge Yes Diagnosis Discharge Date 04/10/25 Discharged To: Home Setting Discharge Hospital [facility] Engagement Call Start Time 1000 Admission Date 04/07/25 Medications Discharge medications reviewed and reconciled from hospital? Yes Is the patient having any side effects they believe may be caused by any medication additions or changes? No Does the patient have all medications ordered at discharge? Yes Nursing Interventions No intervention needed Is the patient taking all medications as directed (includes completed medication regime)? Yes Nursing Interventions Nurse provided patient education Appointments Does the patient have a primary care provider? Yes Nursing Interventions Advised patient to make appointment Does the patient have any upcoming specialty appointments? No Nursing Interventions Advised to schedule with specialist Self Management Patient Teaching Does the patient have access to their discharge instructions? Yes Nursing Interventions Reviewed instructions with patient What is the patient's perception of their health status since discharge? Improving Is the patient/caregiver able to teach back the hierarchy of who to call/visit for symptoms/problems? PCP, Specialist, Home Health nurse, Urgent Care, ED, 911 Yes Wrap Up Call End Time 1020 FAHEEM Complete. Call to pt. Pt reports she and baby are doing well. Pt voices she is pain free and not taking anything for pain. Pt describes bleeding as light lochia. Bowels are regular with Colace. Pt denies any depression or difficulty coping at this time. Pt is currently baby and itis going well. Baby sees PEDs today, 04/12/25. Pt reports she is not in need of any baby items. Pt denies any concerns or needs today. Medsr reviewed. PPV encouraged. documented in this encounter Plan of Treatment DateTypeDepartmentCare Team (Latest Contact Info)Miqynmfdaxm65/06/2026 9:30 AM EDTOffice Visit [facility] [address] [place] [address] Darleen Sinclair MD [address] [place] [address] documented as of this encounter Goals GoalPatient Goal TypeAssociated ProblemsRecent ProgressPatient-Stated?Author Reminders Care PlanOB RemindersNoOpen Scheduling, Backgrounddocumented as of this encounter Visit Diagnoses Diagnosis (spontaneous vaginal delivery) [facility] Primary Normal delivery documented in this encounter Additional Health Concerns Active ProblemsNoted DateDiagnosed DateOB Bjvmamnqb62/07/2025 documented as of this encounter Care Teams Team MemberRelationshipSpecialtyStart DateEnd Date Amanda Ford NP [address] [place] [address] PCP - GeneralFamily Thikvkwp33/2/23documented as of this encounter
--- OUTSIDE RECORDS SUMMARY | 2025-04-15 08:23 | XMS_ITS | Clinical Summary ---
Author Organization [facility] Address [address] [place] [address] Care Team Providers Care Coater Slate Name Role Phone Unavailable Primary Care Provider [...] RecordedNational Score (1-100), lower number is lower igry947502/28/2024State Score (1-10), lower number is lower jtwt61604/29/2023 Data from: https://www.neighborhoodatlas.medicine.[facility]/. Last address used for fym[address] usjanvtlz39/12/2024CommentsYesSex and Gender InformationValueDate RecordedSex Assigned at BirthNot on fileLegal SexFemale 07/13/2023 12:45 PM EDTGender IdentityNot on fileSexual OrientationNot on file Last Filed Vital Signs Vital SignReadingTime TakenCommentsBlood Pressure--Pulse--Temperature-- Respiratory Rate--Oxygen Saturation--Inhaled Oxygen Concentration--Ejviyg90.3 kg (216 lb 11.4 oz)02/28/2024 2:03 PM FBOOwxaue134.3 cm (5' 11 )02/28/2024 2:03 PM ESTBody Mass Index30.23104/29/2023 2:03 PM EST Plan of Treatment Health MaintenanceDue DateLast DoneCommentsAnxiety Lixztwbqs73/17/2013Depression Mswgywsmc31/17/2013Hepatitis B Vaccine (1 of 3 - 19+ 3-dose series)2014 Cervical Cancer Pphruzfyr41/17/2016HPV Vaccine (1 - 3-dose SCDM series) 2022ovid-19 Vaccine ( - 2024- season)2024Influenza Vaccine (#1) 2024DTaP,Tdap,Td Vaccine (2 - Td or Tdap)/12/2022RSV Vaccine (1 - 1-dose 75+ series)2070HIV TxxctazfjOugtrtija47/16/2024Hepatitis C AenheqkarVoabaplvh78/16/2024 Procedures Procedure NamePriorityDate/TimeAssociated DiagnosisCommentsHIV 1/2 COMBO WITH REFLEX TO WBOQFUNNUEVWQKNQwsqlwh98/16/2024 3:21 PM EST Special screening examination for infectious diseases HEPATITIS C ANTIBODY IA WITH EQFMNUGQUCIPUtgkqkl14/16/2024 3:21 PM EST Special screening examination for infectious diseases from Last 3 Months or Most Recently Relevant to Health Maintenance Results * HIV 1/2 COMBO WITH REFLEX TO DIFFERENTIATION (04/02/2024 3:21 PM EST)Component ValueRef RangeTest MethodAnalysis TimePerformed AtPathologist SignatureHIV 12 Combo (Ag/Ab)JlfhzvxbgiwLhyfunuooqz76/17/2024 12:27 PM [facility]HIV-1/2 AB (Confirmatory)04/03/2024 12:27 PM [facility] LABComment:Test not indicated.HIV Fsezfrxwdyuzxo70/17/2024 12:27 PM [facility]Comment: No evidence of HIV-1 or HIV-2 infection. Should recent infection be suspected, repeat testing may be considered 2-3 weeks after this draw. [place] Rev. Code 3701.243(E): This information has been [...] Hernandez APRN.CNPLABORATORY Final ResultPerforming OrganizationAddressCity/State/ZIP CodePhone Number [facility] [address] [place] [address], * HEPATITIS C ANTIBODY IA WITH CONFIRMATION (04/02/2024 3:21 PM EST)Component ValueRef RangeTest MethodAnalysis TimePerformed AtPathologist SignatureHep C Antibody CZLbnaicdxLchvpagw71/17/2024 11:20 AM [facility] LABComment:The result suggests no evidence of active infection with Hepatitis C virus. Should recent infectionbe suspected, repeat testing may be considered 4-6 weeks after this draw.Specimen (Source)Anatomical Location / Laterality Collection Method / VolumeCollection TimeReceived TimeBloodBLOOD SPECIMEN / UnknownVenipuncture / Jcwpcnj3504/02/2024 3:21 PM EST04/02/2024 3:22 PM EST Narrative Authorizing ProviderResult TypeResult StatusShelly Hernandez APRN.CNPLABORATORY Final ResultPerforming OrganizationAddressCity/State/ZIP CodePhone Number [facility] [address] [address], from Last 3 Months or Most Recently Relevant to Health Maintenance Insurance
--- OUTSIDE RECORDS SUMMARY | 2025-04-15 08:23 | XMS_ITS ---
Author Organization [facility] Address [address] [place] [address] Care Team Providers Care Tangled Yarn Spool Straightener Name Role Phone Amanda Ford YARN HAULER Primary Care Provider Inpatient Discharge Transitional Care Management (TCM) Status:Closed (Closed) Start date:04/10/2025 Enrollment date:04/12/2025 Enrollment reason:Identified using discharge data End date:04/12/2025 Close reason:Not eligible Overview Patient discharged from [facility] on 04/10. Please contact for hospital FAHEEM and schedule follow-up appointment within 7-14 days. Continued Care and Services Coordination
--- OUTSIDE RECORDS SUMMARY | 2025-04-15 08:23 | XMS_ITS | Encounter Summary ---
Author Organization [facility] Address [address] [place] [address] Care Team Providers Care Shift Superintendent Caustic Cresylate Name Role Phone Amanda Ford AUTOMOTIVE TECHNICIAN INSTRUCTOR Primary Care Provider Encounter Details DateTypeDepartmentCare Team (Latest Contact Info)Wnsthajblic18/21/2025Clinisync Result Encounter [facility] Unsolicited Les Martinez, DO [address] [place], [place] [id number] Social History Tobacco UseTypesPacks/DayYears UsedDateSmoking Tobacco: FormerCigarettes0.53 Quit: 05/24/2024Smokeless Tobacco: NeverAlcohol UseStandard Drinks/WeekComments Not Currently0 (1 standard drink = 0.6 oz pure alcohol)caffeine: 1-2 cups per day teaPHQ-2AnswerDate RecordedPatient Health Questionnaire-2 Zeotu374 Estimated Date of TnacifmaYaxmkqidLkr78/06/2026ased on Est. Date of ConceptionSex and Gender InformationValueDate RecordedSex Assigned at Ufelhj8901/19/2023 8:10 PM EDTLegal JecWsrfuq30/02/2023 9:50 PM EDTGender Identity Rwyteo0401/19/2023 8:10 PM EDTSexual OrientationNot on fileTravel HistoryTravel StartTravel TbyIaiyihb75/22/202511/documented as of this encounter Plan of Treatment DateTypeDepartmentCare Team (Latest Contact Info)Yezjbxsjyah75/06/2026 9:30 AM EDTOffice Visit [facility] [address] [place] [address] Darleen Sinclair MD [address] [place] [address] documented as of this encounter Goals GoalPatient Goal TypeAssociated ProblemsRecent ProgressPatient-Stated?Author Reminders Care PlanOB RemindersNoOpen Scheduling, Backgrounddocumented as of this encounter Procedures Procedure NamePriorityDate/TimeAssociated DiagnosisCommentsHP CBC WITH PLATELET NO YSTCTPEBXEYQCvsfkok32/21/2025 10:15 PM EST TB DRUG SCREEN RAPID (URINE)Yacfkem6404/07/2025 10:05 PM EST documented in this encounter Results * (ABNORMAL) HP CBC WITH PLATELET NO DIFFERENTIAL (04/07/2025 10:15 PM EST) ComponentValueRef RangeTest MethodAnalysis TimePerformed AtPathologist SignatureTBH WBC12.4(H)4.0 - 11.0 10 3/uLTBHTBH RBC4.08(L)4.20 - 5.40 10 6/uL TBHTBH HGB11.5(L)12.0 - 16.0 g/dLTBHTBH HCT34.0(L)36.0 - 48.0 %TBHTBH MCV83.3 81.0 - 99.0 fLTBHTBH MCH28.226.7 - 34.0 pgTBHTBH MCHC33.829.9 - 35.2 g/dLTBH TB RDW14.511.0 - 15.0 %TBHTBH DUN146830 - 450 10 3/uLTBHTBH MPV9.99.5 - 13.5 fLTBHSpecimen (Source)Anatomical Location / LateralityCollection Method / VolumeCollection TimeReceived Time04/07/2025 10:15 PM EST04/07/2025 10:47 PM EST Narrative [facility]INISYNC - 04/07/2025 10:53 PM EST Authorizing ProviderResult TypeResult StatusCorey Juan DOCLINISYNCFinal Result Performing OrganizationAddressCity/State/ZIP CodePhone Number [facility] * (ABNORMAL) TBH DRUG SCREEN RAPID (URINE) (04/07/2025 10:05 PM EST)Component ValueRef RangeTest MethodAnalysis TimePerformed AtPathologist Signature CANNABINOID SCREEN URINEPOSITIVE(A)NEGATIVETBHPHENCYCLIDINE SCREEN URINE NEGATIVENEGATIVETBHCOCAINE SCREEN URINENEGATIVENEGATIVETBHMETHAMPHETAMINES SCREEN URINENEGATIVENEGATIVETBHOPIATE SCREEN URINENEGATIVENEGATIVETBH AMPHETAMINE SCREEN URINENEGATIVENEGATIVETBHBENZODIAZEPINES SCREEN URINE NEGATIVENEGATIVETBHTRICYCLIC ANTIDEPRESSANT URINENEGATIVENEGATIVETBHMETHADONE SCREEN URINENEGATIVENEGATIVETBHBARBITURATES SCREEN URINENEGATIVENEGATIVETBH OXYCODONE SCREEN URINENEGATIVENEGATIVETBHBUPRENORPHINE SCREEN URINENEGATIVE NEGATIVETBHComment: DRUG CLASS TEST SYSTEM CUT-OFF CONCENTRATIONS ARE FOLLOWS: AMP (Amphetamine): 500 ng/mL BAR (Barbiturates): 200 ng/mL BZO (Benzodiazepines): 150 ng/mL BUP (Buprenorphine): 10 ng/mL SYL (Cocaine): 150 ng/mL mAMP (Methamphetamine): 500 ng/mL MTD (Methadone): 200 ng/mL OPI (Opiates): 100 ng/mL OXY (Oxycodone): 100 ng/mL PCP (Phencyclidine): 25 ng/mL THC (Cannabinoids): 50 ng/mL TCA (Trycyclic Antidepressants): 300 ng/mL Specimen (Source)Anatomical Location / LateralityCollection Method / Volume Collection TimeReceived Time04/07/2025 10:05 PM EST04/07/2025 10:47 PM EST Narrative CLINISYNC - 04/07/2025 11:14 PM EST Authorizing ProviderResult TypeResult StatusCorey Juan DOCLINISYNCFinal Result Performing OrganizationAddressCity/State/ZIP CodePhone Number [facility] documented in this encounter Visit Diagnoses Not on filedocumented in this encounter Additional Health Concerns Active ProblemsNoted DateDiagnosed DateOB Ngvkaihin43/07/2025 documented as of this encounter Care Teams Team MemberRelationshipSpecialtyStart DateEnd Date Amanda Ford NP [facility] [place] [address] PCP - GeneralFamily Vuwbqtyi48/2/23documented as of this encounter
--- OUTSIDE RECORDS SUMMARY | 2025-04-15 08:24 | XMS_ITS | Patient Health Record ---
Author Organization [facility] [place] Address [address] [place] [address] Care Team Providers Care Operations And Maintenance Supervisor Name Role Phone Robin Marquez MD Primary Care Provider Unavail able Reason For Referral No Information Plan Of Treatment No Information
--- OUTSIDE RECORDS SUMMARY | 2025-04-15 08:24 | XMS_ITS | Clinical Summary ---
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 Date of Conception Encounters DateTypeDepartmentCare RtbzDvpzugbdegy33/26/2025Patient Outreach [facility] [address] [place] [address] Jojo Be LPN 04/08/2025Patient Outreach [facility] [address] [place] [address] Jojo Be LPN 04/07/2025linisync Result Encounter [facility] External Department Unsolicited Basim Martinez DO 04/02/2025 10:00 [place] [address] Basim Martinez, Third trimester ([facility]); 37 weeks gestation of ([facility]); Conceived by in vitro fertilization; Thyroid disease; H/O gastric sleeve; H/O iron deficiency jqpsyk6704/02/2025[place] [address] Basim Martinez DO 5[place] [address] Basim Martinez, DO 04/01/2025linisync Result Encounter [facility]OM[facility] External Department Unsolicited Basim Martinez, DO 04/01/20250047Ltlklm57/09/2025 1:50 PM ESTRoutine [facility] [address] [address] Jojo Ames PA 36 weeks gestation of ([facility]); Third trimester ([facility]); H/O gastric sleeve; Thyroid qeslxtu1003/26/2025linisync Result Encounter [facility]OM[facility] External Department Unsolicited Jojo Ames PA 03/26/2025amboo flowsheet [facility] [address] [address] Jojo Ames PA 03/25/2025linisync Result Encounter [facility]OM[facility] External Department Unsolicited Basim Martinez, DO 03/22/2025linisync Result Encounter [facility]OM[facility] External Department Unsolicited Basim Martinez, DO 03/22/2025Telephone [facility] [address] [address] Kerrie Babcock, [place] 03/21/2025linisync Result Encounter [facility]OM[facility] External Department Unsolicited Basim Martinez, DO 03/20/20255069Fqifvm50/03/2025Telephone [facility] [address] [address] Kerrie Babcock [place] 03/19/2025 11:00 AM ESTRoutine [facility] [address] [place] [address] Basim Martinez, DO 35 weeks gestation of ([facility]); Third trimester ([facility]); H/O gastric sleeve; Thyroid disease; Sore throat; Upper respiratory tract infection, unspecified type03/19/2025amboo flowsheet [facility] [address] [address] Basim Martinez, DO 5Clinisync Result Encounter [facility]OMS External Department Unsolicited Basim Martinez, DO 03/12/2025Patient Outreach [facility] [address] [place] [address] Jojo Be LPN 03/12/20256340Nrpeqi69/19/2025Abstract [facility] [address] [place] [address] Basim Martinez, DO 03/05/2025 2:20 PM ESTRoutine [facility] [address] [place] [address] Jojo Ames, PA Third trimester ([facility]); 33 weeks gestation of ([facility]); Thyroid disease; H/O gastric mmpadb5203/05/2025Telephone [facility] [address] [place] [address] Marsha Asif MA 03/05/2025External Result Encounter [facility] [address] [place] [address] Basim Martinez, DO 03/05/20251739Hyqmoi88/18/2025amboo flowsheet [facility] [address] [place] [address] Jojo Ames, PA 2025linisync Result Encounter [facility] External Department Unsolicited Basim Martinez, DO 03/04/20257020Neewzf34/11/2025Clinisync Result Encounter [facility]OM[facility] External Department Unsolicited Basim Martinez, DO 02/19/2025 1:00 PM ESTRoutine [facility] [address] [address] Basim Martinez, DO Third trimester ([facility]); 31 weeks gestation of ([facility]); TSH (thyroid-stimulating hormone deficiency); H/O gastric qyntka9802/19/2025linisync Result Encounter [facility] External Department Unsolicited Basim Martinez, DO 02/19/2025amboo flowsheet [facility] [address] [address] Basim Martinez, DO 02/12/2025bstract [facility] [address] [place] [place] [address] Jojo Be LPN 02/12/20257548Qrdjmi73/24/2025Patient Outreach [facility] [address] [place] [address] Jojo Be LPN 02/08/2025bstract [facility] [address] [address] Kerrie Babcock MA 02/07/2025bstract [facility] [address] [place] [address] Basim Martinez, 02/06/2025 2:30 PM EDTRoutine [facility] [address] [address] Jojo Ames PA Third trimester ([facility]); 29 weeks gestation of ([facility])02/06/2025amboo flowsheet [facility] [address] [address] Jojo Ames PA 01/31/2025bstract [facility] [address] [address] Basim Martinez, 01/30/2025 2:30 PM EDTAncillary Procedure [facility] [address] [address] TSH (thyroid-stimulating hormone deficiency)01/30/20250696Ybhgeq27/06/2025Telephone [facility] [address] [place] [address] Marsha Asif MA 01/16/2025 11:20 AM EDTRoutine [facility] [address] [place] [address] Mima Duenas, TY 26 weeks gestation of ([facility]); Second trimester ([facility]); TSH (thyroid-stimulating hormone deficiency)01/16/2025amboo flowsheet [facility] [address] [address] Mima Duenas, TY from Last 3 Months Immunizations ImmunizationAdministration DatesNext ZfuKfwk0612/25/2022 Family History Medical HistoryRelationNameCommentsDiabetesFatherGreg spearsHypertensionFather Delbert spearsThyroid diseaseFatherGreg spearsObesityMotherMary spearsSkin cancer MotherMary spearsThyroid diseaseMotherMary spearsDiabetesPaternal Grandfather Ayaan FritzRelationNameStatusCommentsFatherGreg spearsAliveMotherMary nunez AlivePaternal GrandfatherLarry FritzSisterAlive Social History Tobacco UseTypesPacks/DayYears UsedDateSmoking Tobacco: FormerCigarettes0.53 Quit: 05/24/2024Smokeless Tobacco: Never Tobacco Cessation:Counseling Given: Not Answered Alcohol UseStandard Drinks/WeekCommentsNot Currently0 (1 standard drink = 0.6 oz pure alcohol)caffeine: 1-2 cups per day teaPHQ-2AnswerDate RecordedPatient Health Questionnaire-2 Belng43706/13/2024Estimated Date of Delivery NvmuxewtEqu05/06/2026Based on Est. Date of ConceptionSex and Gender Information ValueDate RecordedSex Assigned at RuoefNwckcj20/04/2023 8:10 PM EDTLegal Sex Rhdspw3701/17/2023 9:50 PM EDTGender MrgkeykaTorzwa47/04/2023 8:10 PM EDTSexual OrientationNot on fileTravel HistoryTravel StartTravel KrcXwrtysi05/22/2025 03/16/2025 Last Filed Vital Signs Vital SignReadingTime TakenCommentsBlood Yviqgbgz130/7604/02/2025 10:43 AM EST Cyjdo755608/22/2024 10:04 AM EDTTemperature--Respiratory Zmmp429908/22/2024 10:04 AM EDTOxygen Zwfamsktre92%08/22/2024 10:04 AM EDTInhaled Oxygen Concentration-- Akkbiz241 kg (302 lb)04/02/2025 10:43 AM ZOEMvfudr638.3 cm (5' 11 )08/22/2024 10:04 AM EDTBody Mass Index42.12008/22/2024 10:04 AM EDT Plan of Treatment DateTypeDepartmentCare Team (Latest Contact Info)Pznfrkvtrqq28/06/2026 9:30 AM EDTOffice Visit [facility] [place] [facility] [address] [place] [address] Darleen Sinclair MD [address] [place] [address] Health MaintenanceDue DateLast DoneCommentsInfluenza Vaccine (#1)12/17/2024 HPV/Znpanb34//, 10/28/2020, 10/16/2018Cervical Cancer Screening 02/19/2027Pap Smear711/07/2023, 11/02/2021neumococcal Vaccine: Pediatrics (0 to 5 Years) and At-Risk Patients (6 to 64 Years)Aged OutNo longer eligible based on patient's age to complete this topic Goals GoalPatient Goal TypeAssociated ProblemsRecent ProgressPatient-Stated?Author Reminders Care PlanOB RemindersNoOpen Scheduling, Background Procedures Procedure NamePriorityDate/TimeAssociated DiagnosisCommentsHMHP CBC WITH PLATELET NO HMEQWPFBFRNSLjedknr24/21/2025 10:15 PM EST [facility] DRUG SCREEN RAPID (URINE)Wlrkcrm8404/07/2025 10:05 PM EST POCT URINALYSIS ZDNSGQPQAlnpsjn87/16/2025 10:44 AM EST Third trimester ([facility]) US OB BPP W NON-WTZVWU4104/01/2025 2:43 PM EST POCT URINALYSIS VCBNMRFPOcszgja72/09/2025 2:08 PM EST 36 weeks gestation of ([facility]) Third trimester ([facility]) STREP GP B CULTURE+DGMTHzyknno73/09/2025 1:49 PM EST US OB BPP W NON-TRJKAA1903/25/2025 4:30 PM EST [facility] UA (CLEAN/CATCH) INTERIOR HORTICULTURIST/MICRO IF IND.Nrhgznn1603/22/2025 8:50 PM EST US OB BPP W NON-ELLJKF8303/21/2025 3:52 PM EST POCT URINALYSIS CHCYUNMDWrnugsk05/02/2025 11:25 AM EST 35 weeks gestation of ([facility]) Third trimester ([facility]) US OB BPP W NON-VXUENM6303/18/2025 4:09 PM EST US OB 14+ WEEKS ANATOMY SCAN03/05/2025 3:47 PM EST POCT URINALYSIS LQXTDKJAKlmyazf96/18/2025 2:41 PM EST 33 weeks gestation of ([facility]) US OB BPP W NON-OTDZWG5203/04/2025 9:40 PM EST US OB BPP W NON-KLAIHF0402/26/2025 8:30 AM EST ALL THYROID STIM QVEWTDXCakfyja58/04/2025 2:18 PM EST POCT URINALYSIS TFWOXCTBKinfnzk25/04/2025 1:26 PM EST Third trimester ([facility]) POCT URINALYSIS ALYYRYPHThhfkof42/22/2025 2:49 PM EDT 29 weeks gestation of ([facility]) US OB FOLLOW UP TRANSABDOMINAL MSVBUCJLSsldvej18/15/2025 3:10 PM EDT TSH (thyroid-stimulating hormone deficiency) POCT URINALYSIS KCNMCCPNAldfbci93/01/2025 11:40 AM EDT 26 weeks gestation of ([facility]) PAP YLVYYEmhszab52/04/2024 12:00 AM ESTTHINPREP TIS PAP REFLEX HPV MRNA E6/E7 (77648)Aaeayus1211/03/2021 from Last 3 Months or Most Recently Relevant to Health Maintenance Results * (ABNORMAL) [facility] CBC WITH PLATELET NO DIFFERENTIAL (04/07/2025 10:15 PM EST) ComponentValueRef RangeTest MethodAnalysis TimePerformed AtPathologist SignatureTBH WBC12.4(H)4.0 - 11.0 10 3/uLTBHTBH RBC4.08(L)4.20 - 5.40 10 6/uL TBHTBH HGB11.5(L)12.0 - 16.0 g/dLTBHTBH HCT34.0(L)36.0 - 48.0 %TBHTBH MCV83.3 81.0 - 99.0 fLTBHTBH MCH28.226.7 - 34.0 pgTBHTBH MCHC33.829.9 - 35.2 g/dLTBH TBH RDW14.511.0 - 15.0 %TBHTBH WZD043457 - 450 10 3/uLTBHTBH MPV9.99.5 - 13.5 fLTBHSpecimen (Source)Anatomical Location / LateralityCollection Method / VolumeCollection TimeReceived Time04/07/2025 10:15 PM EST04/07/2025 10:47 PM EST Narrative [facility] - 04/07/2025 10:53 PM EST Authorizing ProviderResult TypeResult StatusCorey Juan DOCLINISYNCFinal Result Performing OrganizationAddressCity/State/ZIP CodePhone Number [facility] * (ABNORMAL) [facility] DRUG SCREEN RAPID (URINE) [...] Performing OrganizationAddressCity/State/ZIP CodePhone Number [facility]INIS[facility]NC [facility] * POCT urinalysis dipstick manually resulted (04/02/2025 [...] Location / LateralityCollection Method / VolumeCollection TimeReceived TdslKwabd94/16/2025 10:44 AM EST Narrative Authorizing ProviderResult TypeResult StatusCorey Juan DOPOINT OF CARE TEST ENTER/EDIT ORDERABLESFinal Result * US OB BPP W NON-STRESS (04/01/2025 2:43 PM EST) Only the most recent of6 resultswithin the time period is included. Anatomical RegionLateralityModalityOtherSpecimen (Source)Anatomical Location / LateralityCollection Method / VolumeCollection TimeReceived Time04/01/2025 2:43 PM EST Narrative 04/01/2025 2:45 PM EST [facility] ?[address] ? [place] [address] ? Ultrasound Report ? Signed ? Patient: GUZMAN DEL CID ?MR#: [id number] ?? : 1995 ?Acct:[id number] ?? Age/Sex: 30 / F ?ADM Date: 04/01/25 ?? Loc: US ? Attending Dr: Basim Martinez D.O. ? Ordering Physician: Basim Martinez D.O. ?? Date of Service: 04/01/25 ?? Procedure(s): US OB BPP w non-stress ?? Accession Number(s): [id number] ? cc: Basim Martinez D.O.; AMANDA FORD ? [facility] ? [address] ? [place] [address] ? Patient Name: ?? GUZMAN DEL CID ? MRN: [facility]:[id number] ? date: 1995 ?Sex: F ?? Assigned Patient Location: [facility] ?? Current Patient Location: ? Accession/Order Number: [id number] ?? Exam Date: 04/01/2025 ??14:03 ?Report Date: 04/01/2025 ??14:43 ? At the request of: ?? BASIM ??JUAN ??DO ? Procedure: ??US OB BPP w non-stress ? Biophysical profile. ? Reason for exam: Thyroid stimulating hormone deficiency ? COMPARISON: 03/25/2025 ? TECHNIQUE: Transabdominal imaging of the gravid uterus was obtained. ? FINDINGS: The ccna reports a BPP of 8 out of 8. ??STARR is normal at 14.2 ?? cm. ?? heart rate 130 bpm. ? US/US OB BPP w non-stress ?? IMPRESSION: BPP 8 out of 8. ? Impression dictated by: Sravan Dickinson Jr., D.O. ??04/01/2025 2:43 PM ? Dictation Location: [facility]-- ? Electronically authenticated by: [id number] ??Y ?? Date: 04/01/2025 ??14:43 ? Dictated By: ?Sravan Dickinson M.D. ? Signed By: ?04/01/25 1445 ? DD/ 1443 ? TD/TT: ? Research Professor: Procedure Note Radiology, Radiologist, - 04/01/2025 [place] [address] Ultrasound Report Signed Patient: GUZMAN DEL CID EMR#: [id number] : 1995Acct:[id number] Age/Sex: 30 / FADM Date: 04/01/25 Loc: US Attending Dr: Basim Martinez D.O. Ordering Physician: Basim Martinez D.O. Date of Service: 04/01/25 Procedure(s): US OB BPP w non-stress Accession Number(s): [id number] cc: Basim Martinez D.O.; AMANDA FORD [place] [address] Patient Name: GUZMAN DEL CID MRN: [id number] date: 1995 Sex: F Assigned Patient Location: [facility] Current Patient Location: Accession/Order Number: [id number] Exam Date: 04/01/2025 14:03 Report Date: 04/01/2025 14:43 At the request of: BASIM MARTINEZ DO Procedure: US OB BPP w non-stress Biophysical profile. Reason for exam: Thyroid stimulating hormone deficiency COMPARISON: 03/25/2025 TECHNIQUE: Transabdominal imaging of the gravid uterus was obtained. FINDINGS: The ccna reports a BPP of 8 out of 8. STARR is normal at14.2 cm. heart rate 130 bpm. US/US OB BPP w non-stress IMPRESSION: BPP 8 out of 8. Impression dictated by: Sravan Dickinson Jr., D.O. 04/01/2025 2:43 PM Dictation Location: [place] [address] Electronically authenticated by: [id number] Y Date: 4:43 Dictated By: Sravan Dickinson M.D. Signed By:04/01/25 1445 DD/ 1443 TD/TT: Research Professor: Authorizing ProviderResult TypeResult StatusCorey Juan DOCLINISYNC IMAGINGFinal [...] noted.TBHSTREP GP B CULTURE+RFLX Performed at: - [facility] BerlinTBHSTREP GP B CULTURE+[id number] [place], [place] [address]JBMWGYGE GP B CULTURE+RFLXLab Director: sIaac Dietz PhD, Phone: [phone] (Source)Anatomical Location / Laterality Collection Method / VolumeCollection TimeReceived Time03/26/2025 1:49 PM EST 03/26/2025 7:23 PM EST Narrative [facility] - 03/31/2025 5:07 PM EST Authorizing ProviderResult TypeResult StatusAmy [facility] BLOOD ORDERABLES Final ResultPerforming OrganizationAddressCity/State/ZIP CodePhone Number [facility] * (ABNORMAL) [facility] UA (CLEAN/CATCH) INTERIOR HORTICULTURIST/MICRO IF IND. (03/22/2025 8:50 PM EST) ComponentValueRef RangeTest MethodAnalysis TimePerformed AtPathologist SignatureCOLOR URINELT. YELLOWYELLOWTBHCLARITY URINECLEARCLEARTBHSPECIFIC GRAVITY URINE<=1.005(A)1.005 - 1.025TBHPH URINE6.05.0 - 9.0TBHPROTEIN URINE NEGATIVENEG/TRACE mg/dLTBHGLUCOSE URINE UANEGATIVENEGATIVE mg/dLTBHBILIRUBIN URINENEGATIVENEGATIVETBHKETONES URINENEGATIVENEGATIVE mg/dLTBHBLOOD URINE NEGATIVENEGATIVETBHNITRITE URINENEGATIVENEGATIVETBHUROBILINOGEN URINE0.20.2 - 1.0 EU/dLTBHLEUKOCYTE ESTERASE URINENEGATIVENEGATIVETBHURINE MICROSCOPIC INDICATEDNOTBHSpecimen (Source)Anatomical Location / LateralityCollection Method / VolumeCollection TimeReceived Time03/22/2025 8:50 PM EST03/22/2025 9:11 PM EST Narrative PETERISYIMER - 03/22/2025 9:28 PM EST Authorizing ProviderResult TypeResult StatusCorechip Martinez DOCLINISYNCFinal Result Performing OrganizationAddressCity/State/ZIP CodePhone Number [facility]INISYWI [facility] * US OB 14+ weeks anatomy scan (03/05/2025 3:47 PM EST)Anatomical Region LateralityModalityBodyUltrasoundSpecimen (Source)Anatomical Location / LateralityCollection Method / VolumeCollection TimeReceived Time03/05/2025 3:47 PM EST Narrative 03/05/2025 3:47 PM EST [facility] NAME[facility] ??MARIA EUGENIA HINDS : 1995 SEX: F Accession Number: [id number] ORDERING PHYSICIAN: BASIM MARTINEZ REFERRING PHYSICIAN: BASIM MARTINEZ Coding Procedures ? 40172: Ultrasound, uterus, real time with image documentation, follow up,transabdominal ? approach per fetus Indication resulting from assisted reproductive technology- IUI, History of Gastric sleeve, Obesity in . History OB History ? 1. Para 0 ? [id number] Current Cell free DNA ?low risk analysis [...] (oz) ? 11 oz EFW by: ?Hadlock (SGY-RD-AC-FL) Extended Tibia ??54.8 mm 32w 2d 47% [employer] Specialist ? 4.4 mm Head / Face / [...] MVP measures 7.3 cm. Recommendations Please see [facility] recommendations from prior clinical and/or [...] HINDS : 1995 SEX: F Accession Number: [id number] ORDERING PHYSICIAN: BASIM MARTINEZ REFERRING PHYSICIAN: BASIM MARTINEZ Coding Procedures 31715: Ultrasound, uterus, real time with image documentation, follow up, transabdominal approach per fetus Indication resulting from assisted reproductive technology- IUI, History of Gastric sleeve, Obesity in . History OB History 1. Para 0 [id number] Current Cell free DNA low risk analysis [...] EFW (oz) 11 oz EFW by: Hadlock (SVI-VL-AJ-FL) Extended Tibia 54.8 mm 32w 2d 47% [employer] Specialist 4.4 mm Head / Face / Neck [...] MVP measures 7.3 cm. Recommendations Please see [facility] recommendations from prior clinical and/or ultrasoundreport documentation. Subsequent follow up or other follow up as clinically determined byprimary OB provider unless otherwise specified by [facility]. Results forwarded to ordering provider so they can follow up with thepatient as necessary. Authorizing ProviderResult TypeResult StatusCorey Juan MESAMG OB US PROCEDURES Final Result * ALL THYROID STIM HORMONE (02/19/2025 2:18 PM EST)ComponentValueRef RangeTest MethodAnalysis TimePerformed AtPathologist SignatureTHYROID STIMULATING HORMONE1.3470.358 - 3.740 uIU/mLTBHSpecimen (Source)Anatomical Location / LateralityCollection Method / VolumeCollection TimeReceived Time02/19/2025 2:18 PM EST02/19/2025 2:18 PM EST Narrative JEREMY - 02/19/2025 3:26 PM EST Authorizing ProviderResult TypeResult StatusCorey Juan DOCLINISYNCFinal Result Performing OrganizationAddressCity/State/ZIP CodePhone Number JEREMY TB * US OB follow up transabdominal approach [...] StatusMima Duenas NPIMG US PROCEDURESFinal Result * Pap Smear (02/20/2024 12:00 AM EST)Specimen (Source)Anatomical Location / LateralityCollection Method / VolumeCollection TimeReceived TimeSwabCervical swab / Unknown Narrative Authorizing ProviderResult TypeResult StatusCorey Juan DOLAB CYTOLOGY ORDERABLESFinal ResultPerforming OrganizationAddressCity/State/ZIP CodePhone Number EXTERNAL LAB * THINPREP TIS PAP REFLEX HPV MRNA E6/E7 (53755) (11/03/2021)ComponentValueRef RangeTest MethodAnalysis TimePerformed AtPathologist SignatureCLINICAL INFORMATION:None [...] LEGACY EXTERNAL LABCYTOTECHNOLOGIST:SEE COMMENTNOMS LEGACY EXTERNAL LABComment: [place], CT(ASCP) CT screening location: [place] [address]. COMMENTSEE COMMENTNOMS LEGACY EXTERNAL LABComment: EXPLANATORY NOTE: [...] INCORRECT, PLEASE CONTACT CLIENT SERVICES. PHONE NUMBER: [phone] Specimen (Source)Anatomical Location / LateralityCollection Method / Volume Collection TimeReceived Time11/03/2021 Narrative Authorizing ProviderResult TypeResult StatusMona J Nataprawira DOECW LABSFinal ResultPerforming OrganizationAddressCity/State/ZIP CodePhone Number [facility] from Last 3 Months or Most Recently Relevant to Health Maintenance Additional Health Concerns Active ProblemsNoted DateDiagnosed DateOB Wzfzniphy68/07/2025 Insurance Care Teams Team MemberRelationshipSpecialtyStart DateEnd Date Amanda Ford NP [address] [place], [place] [id number] PCP - GeneralFamily Mselflqt72/2/23
--- OUTSIDE RECORDS SUMMARY | 2025-04-15 08:24 | XMS_ITS | Clinical Summary ---
Author Organization [employer] Address [facility] [id number] [address] [place] [address] Care Team Providers Care Obstetrical Tech Name Role Phone No Pcp, No Pcp Primary Care Provider Unavailabl e Allergies Active AllergyReactionsCriticalityNoted DateCommentsNsaids (Non-Steroidal Anti- Inflammatory Drug)10/26/2024 Medications MedicationSigDispense QuantityRefillsLast FilledStart DateEnd DateStatus vm859-xgxa-blxbv acid ( 19) 29 mg iron- 1 [...] ProblemNoted DateDiagnosed DatePrevious gastric bypass affecting , zpoerbutwb46/20/2025Pregnancy headache in second xsloqonyf25/20/2025 Hypothyroidism affecting in second dazlgwzmc39/20/2025ipolar disease during in second lfwomlhmv98/20/2025Estimated Date of Delivery QnsduobmAgh45/06/2026ased on Other Basis, IUI conception date 07/31/2024 Encounters DateTypeDepartmentCare BbgySndoqprlnpz40/11/2025Refill Maternal- Medicine at [facility] [address] [place] [address] Latricia Garcia MD headache in second tlmmcojfl01/18/2025 11:12 AM EST - 03/05/2025 11:59 PM ESTHospital Encounter [facility]ound [address] [place] [address] Hypothyroidism affecting in second trimester; headache in second trimester; Previous gastric bypass affecting , antepartum; Bipolar disease during in second trimester ([facility]) Discharge Disposition: Home03/04/20258193Nfdtti47/23/2025Orders Only [facility] 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 [employer] - [address] [phone] Roslyn Griffin, LEIGH Hypothyroidism affecting in second trimester (Primary Dx); headache in second trimester; Previous gastric bypass affecting , antepartum; Bipolar disease during in second trimester ([facility])02/07/2025Travel from Last 3 Months Family History Medical HistoryRelationNameCommentsDiabetesFatherHypertensionFatherThyroid diseaseFatherDiabetesMaternal GrandfatherDepressionMotherObesityMotherSkin cancerMotherThyroid diseaseMotherRelationNameStatusCommentsFatherMaternal GrandfatherMotherPaternal Grandfather Social History Tobacco UseTypesPacks/DayYears UsedDateSmoking Tobacco: FormerCigarettes2 Started: 2023Smokeless Tobacco: Never Tobacco Cessation:Counseling Given: Not Answered Alcohol UseStandard Drinks/WeekCommentsNot Currently0 (1 standard drink = 0.6 oz pure alcohol)ChildcareAnswerDate CataiuvcLtaghlbgeGmvzjik46/02/2021mployment AnswerDate ErjhhfeaMeazioqtcvXikpwfu34/02/2021Hunger ScreeningAnswerDate RecordedWithin the past 12 months we worried whether our food would run out before we got money to buy more.Never True12/05/2024Within the past 12 months the food we bought just didn't last and we didn't have money to get more.Never True12/05/2024Purpose - LifeAnswerDate RecordedPurpose and direction in life Osnlhix2505/20/2020Estimated Date of WehzmivsHxemdjgsBiu11/06/2026Based on Other Basis, IUI conception date 07/31/2024Sex and Gender InformationValueDate RecordedSex Assigned at BirthNot on fileLegal XimIxtkvu82/06/2015 12:10 PM EDT Gender IdentityNot on fileSexual OrientationNot on file Last Filed Vital Signs Vital SignReadingTime TakenCommentsBlood Stuqnedg34/6208 12:46 PM EDT Cbgds493912/05/2024 12:46 PM EDTTemperature--Respiratory Rate--Oxygen Saturation-- Inhaled Oxygen Concentration--Xjcscr801.6 kg (257 lb)12/05/2024 12:46 PM EDT Zlpwqw819.3 cm (5' 11 )12/05/2024 12:46 PM EDTBody Mass Index35.8412/05/2024 12:46 PM EDT Plan of Treatment Health MaintenanceDue DateLast DoneCommentsDepression Pmfjvvxxo85/17/2007dult BMI Follow Up Plan2013Pap Smear2016COVID-19 Vaccine ( season)/07/2020, 07/22/2020Influenza Cqzsgpi45 Adult BMI Hszfpmfgj49/Tobacco Drxrdbgaj44 DTaP,Tdap and Td Vaccines (9 - Td or Tdap), 12/25/2022, 03/03/2009, Additional history existsRSV ( or age 60+ yrs)Completed 02/26/2025 Medical Devices Not on file Procedures Procedure NamePriorityDate/TimeAssociated DiagnosisCommentsUS [facility] OB FOLLOW-UP, 1 CPVZRLddudpa51/18/2025 12:04 PM EST Hypothyroidism affecting in second trimester headache in second trimester Previous gastric bypass affecting , antepartum Bipolar disease during in second trimester ([facility]) [facility] OB FOLLOW-UP, 1 DALWUVryntpc02/23/2025 10:49 AM EDT Previous gastric bypass affecting , antepartum Hypothyroidism affecting in second trimester Bipolar disease during in second trimester ([facility]) Obesity affecting in second trimester, unspecified obesity type from Last 3 Months Results * [facility] OB FOLLOW-UP, 1 FETUS (03/05/2025 12:04 PM EST) Only the most recent of2 resultswithin the time period is included. Anatomical RegionLateralityModalityOB-GYNUltrasoundSpecimen (Source)Anatomical Location / LateralityCollection Method / VolumeCollection TimeReceived Time 03/05/2025 11:31 AM EST Narrative 03/05/2025 3:47 PM EST NAME: ??MARIA EUGENIA HINDS : 1995 SEX: F Accession Number: [id number] ORDERING PHYSICIAN: BASIM MARTINEZ REFERRING PHYSICIAN: BASIM MARTINEZ Coding Procedures ? 13466: Ultrasound, uterus, real time with image documentation, follow up,transabdominal ? approach per fetus Indication resulting from assisted reproductive technology- IUI, History of Gastric sleeve, Obesity in . History OB History ? 1. Para 0 ? U4L5N0W2 Current Cell free DNA ?low risk analysis [...] (oz) ? 11 oz EFW by: ?Hadlock (CQW-RC-SN-FL) Extended Tibia ??54.8 mm 32w 2d 47% Gayle V Groove Cutter ? 4.4 mm Head / Face / [...] MVP measures 7.3 cm. Recommendations Please see [facility] recommendations from prior clinical and/or ultrasound report documentation. Subsequent follow up or other follow up as clinically determined by primary OB provider unless otherwise specified by [facility]. Results forwarded to ordering provider so they can follow up with the patient as necessary. Procedure Note Crystal Rahman MD - 03/05/2025 NAME: MARIA EUGENIA HINDS : 1995 SEX: F Accession Number: [id number] ORDERING PHYSICIAN: BASIM MARTINEZ REFERRING PHYSICIAN: BASIM MARTINEZ Coding Procedures 94569: Ultrasound, uterus, real time with image documentation, follow up, transabdominal approach per fetus Indication resulting from assisted reproductive technology- IUI, History of Gastric sleeve, Obesity in . History OB History 1. Para 0 [id number] Current Cell free DNA low risk analysis [...] EFW (oz) 11 oz EFW by: Hadlock (WTA-SA-HD-FL) Extended Tibia 54.8 mm 32w 2d 47% Gayle V Groove Cutter 4.4 mm Head / Face / Neck [...] MVP measures 7.3 cm. Recommendations Please see [facility] recommendations from prior clinical and/or ultrasoundreport documentation. Subsequent follow up or other follow up as clinically determined byprimary OB provider unless otherwise specified by [facility]. Results forwarded to ordering provider so they can follow up with thepatient as necessary. Authorizing ProviderResult TypeResult StatusCorey Deirdre Martinez DOIMG US ORDERABLES Final Result from Last 3 Months Insurance Care Teams Team MemberRelationshipSpecialtyStart DateEnd Date No Pcp, No Pcp LUKE Owens [phone] PCP - GeneralFamily Medicine05/20/20
--- OUTSIDE RECORDS SUMMARY | 2025-04-15 08:24 | XMS_ITS | Patient Health Record ---
Author Organization [employer] Address [address] [place] [address] Care Team Providers Care Distribution Supervisor Name Role Phone Tabitha Zamora Primary Care Provider [phone] Jennifer Hahn Unavailable [phone] Julieta Jefferson Unavailable [phone] Allergies No Known Allergies Reason For Referral [...] MG Capsule1 capsule with food Orally at tlditsm933- 200 caloriesNot-Taking/PRNlamoTRIgine 200 MG Tablet1 tablet Orally [...] a drink containing alcohol in the past year?EeAzthjk0YadmqxcjvmxjisFplxlzeo Problems Problem Type SNOMED Code ICD Code Onset Dates Problem Status W/U Status Risk Notes Problem 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 (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) ActiveconfirmedProblemAnxiety state (240932867)Anxiety state, unspecified (F41.1)ActiveconfirmedProblemLong-term current use of drug therapy (174828966) High risk medications (not anticoagulants) long-term use (Z79.899)Active confirmedProblemBipolar affective disorder, currently manic, mild (397272282) Bipolar disorder, current episode manic without psychotic features, mild (F31.11)Activeconfirmed Vital Signs Heart Rate 84 /min 10/24/2024 Qxykwdoe15 %10/24/2024lood pressure brjjkjuev78 mm Hg10/24/20241457Jsddiw19 in 10/24/2024lood pressure esjwsvei273 mm Hg10/24/20240861Vzbjbw618.2 lbs10/24/2024MI 30.43 kg/m210/24/2024 Encounters Encounter Location Date Provider Diagnosis [facility] [address] [place] [address] 05/10/2024 Julieta Jefferson Bipolar disorder, current episode manic without psychotic features, mild F31.11 and Anxiety state, unspecified F41.1 [facility] [address] [place] [address] 05/24/2024 Julieta Jefferson Bipolar disorder, current episode manic without psychotic features, mild F31.11 [facility] [address] [place] [address] 01/07/2025 Julieta Jefferson Bipolar disorder, current episode manic without psychotic features, mild F31.11 [facility] [address] [place] [address] 03/05/2025 Tabitha Zamora Bipolar disorder, current episode manic without psychotic features, mild F31.11 [facility] [address] [facility] [address] 03/28/2025 Tabithamichela Zamora [facility] [facility] [address]/11/2024Julieta Jefferson Bipolar disorder, current episode manic without psychotic features, mild F31.11 and Anxiety state, unspecified [facility]41.[facility] [place] [place] [address]/5Christy CoxBipolar disorder, current episode manic without psychotic features, mild F31.11 and Anxiety state, unspecified F41.1[facility] [place] [address]/5Christy CoxBipolar disorder, current episode manic without psychotic features, mild F31.11[facility] [place] [place] [address]/5Christy CoxBipolar disorder, current episode manic without psychotic [...] - F31.11) cont current treatment transfer to [facility] . . Informed consent obtained: YES, [...] Concepcion levin, 04/19/2025 10:45:00 AM, [address] [place], [address], Provider Name:Tabitha Riley levin, 05/03/2025 08:30:00 AM, [address] [place], [address], Insurance Providers Payer Name Payer Address Payer Phone Subscriber Number Group Number Insured Name Patient Relationship to Insured Coverage Start Date Coverage End Date [facility] [address] [place] [address] [id number] Aysha DEL CID - patient is the [id number]/19/2022 [facility] [address] [place] [id number], HEATHERSelf - patient is the ublzcgb4605/19/2022FORMERLY [facility] [address] [place] [id number] - patient is the [id number] [employer]-termed 05/18/22[address] [place] [id number], BRYANColemalcom - patient is the [id number] MEDICAID C[employer] after [employer]- termed 05/18/22 [address] [place] [id number] MARIA EUGENIA BRYANColemalcom - patient is the [id number] Medical (General) History Medical History History ICD Code obesity bipolarhypothyroidSurgical History Surgery Date(Month/Year) cholecystectomy gastric VFDRGN01/2021
--- OUTSIDE RECORDS SUMMARY | 2025-04-15 08:24 | XMS_ITS | Clinical Summary ---
Author Organization [facility] Address [address] [place] [address] Phone Care Team Providers Care Field Seismologist Name Role Phone Unavailable Primary Care Provider Unavailabl e Social History Tobacco UseTypesPacks/DayYears UsedDateSmoking Tobacco: Never Assessed CommentsUnknownSex and Gender InformationValueDate RecordedSex Assigned at Not on fileLegal AppRnnduw42/26/2024 8:23 AM EDTGender IdentityNot on fileSexual OrientationNot on file Plan of Treatment Health MaintenanceDue DateLast DoneCommentsHIV Yxajevvji1995Lipid Panel 1995TSH Level1995MMR Vaccines (1 of 1 - Standard series)1996 Hepatitis C Nbbrtookh08/17/2013Hepatitis B Vaccines (1 of 3 - 19+ 3-dose series) 2014HPV/Bxsglz8503/04/2016HPV Vaccines (1 - 3-dose standard series) 2022OVID-19 Vaccine ( - season)/07/2020, 07/22/2020 Influenza Vaccine (#1)2024early Adult Btrnsieg77/07/2023 Cervical Cancer Mkpuuctwb17/04/2027Pap Smear/4DTaP/Tdap/Td Vaccines (2 - Td or Tdap)/12/2022Zoster [...]
--- OUTSIDE RECORDS SUMMARY | 2025-04-15 08:33 | XMS_ITS | CCD ---
Author Organization [facility] Care Team Providers Care Production Assembler Name Role Phone Mariam Appiah Primary Care [...] Primary Care Provider MELY Ford Attending Provider [phone] MELY Ford Primary Care Provider DO Jack Easton Emergency Provider MARYSOL Jett Emergency Provider [phone] MD Lashonda Farhad Admit Provider MD Farhad Gallego Attending Provider [phone] MELY Ford Attending Provider SHARRON Jefferson Attending Provider Petr Lay Unavailable Romeo Santana Unavailable MELY Ford Primary Care Provider DO Romeo Santana Attending Provider Daxa Ford NPnifer Primary Care Provider Unavailable Rohrbacher SOFTWARE DEVELOPER, Amanda Primary Care Provider Romeo Santana DO Attending Provider Rohrbacher FRENCH DRAWER, Amanda A Primary Care Provider Unavailable Primary Care Provider Unavailabl e DAVID, MELODIE G Referring Unavailable Unavailable Primary Care Provider Unavailabl e NOLA ENRIQUEZ Attending Unavailable Rohrbacher FRENCH DRAWER, Amanda A Primary Care Provider DAVID, MELODIE G Referring Unavailable DAVID, MELODIE G Attending Unavailable DAVID, MELODIE G Referring Unavailable ATTARAN, IGNACIO Attending Unavailable DAVID, MELODIE G Attending Unavailable SELF Referring Unavailable DUDZIAK, DANIEL Referring Unavailable DAVID, MELODIE G Referring Unavailable SELF Referring Unavailable ATTARAN, IGNACIO Attending Unavailable DUDZIAK, DAINEL Referring Unavailable ATTARAN, IGNACIO Referring Unavailable DUDZIAK, [...] Unavailable JUAN, LES R Attending Unavailable Rohrbacher SOFTWARE DEVELOPER, Amanda Primary Care Provider Kassidy Arriaza DO Emergency Provider [phone] No Pcp, No Pcp Primary Care Provider Unavailabl e Chris Dickerson DO Attending Provider [phone] Les Martienz DO Attending Provider Elizabeth Tom Attending Provider [...] of OnsetReaction(s) Facility (20 sources)Non-steroidal anti-inflammatory agentDrug allergyUnkButler Hospital TV Pixie Other (20 sources)Non-steroidal anti-inflammatory agent; Translations: [NSAIDs]Drug Rhraoky69-48-7729MpevicsKJE[facility] (1 source)ALLERGIES NOT ON FILE; Translations: [ALLERGIES NOT ON FILE]Propensity to adverse reactions (disorder)[facility] Repository (6 sources)NSAIDs; Translations: [NSAIDS (NON-STEROIDAL ANTI-INFLAMMATORY DRUG)] Propensity to adverse reactions to ezrw41-35-7106[facility] (1 source)NSAIDsDrug allergy (disorder)29-59-9761Z[facility]Gal[facility] Medications Current Medications MedicationDrug Class(es)DatesSig (Normalized)Sig (Original)acetaminophen 500 mg oral tablet (20 sources)Start: 54-80-5636dght 1 tablet by mouth every eight hours as needed acetaminophen (TYLENOL) 500 mg tablet Take 500 mg by mouth every 8 hours as needed for pain. 12/06/2023 ActiveStart: 79-81-6054yvzu 1 tablet by mouth every six hours as needed for painStart: 11-28-2023 End: 29-50-6693soucpgcederwr (Tylenol Extra Strength) Discontinued 1000 MG PO EVERY 8-10 HOURS as needed for pain November 28, 2023 12:00am January 17, 2024 12:03pmacetaminophen 500 mg / diphenhydrAMINE hydrochloride 25 mg oral tablet (4 sources)Histamine-1 Receptor AntagonistStart: 24-49-6631bwnq 2 tablets by mouth once daily at bedtime for sleepTylenol Extra Strength PM oral tablet 2 tab(s), Oral, Once a day (at bedtime) for sleep, 60 tab(s),Refill(s) 2, [facility], 182, cm, 07/09/19 13:03:00 EDT, Height/Length Measured, 200.7, k g, 07/09/19 13:03:00 EDT, Weight Measured Start Date: 10/04/19 Status: Ordered acetaminophen 325 mg / oxyCODONE hydrochloride 5 mg oral tablet (2 sources)Opioid AgonistStart: 05-07-2020 End: 80-15-9113warf 1 tablet by mouth every six hours [...] pain 28 tablet 0 05/07/2020 05/14/2020 ActiveStart: 59-56-5145adgGPBOTM-acetaminophen (PERCOCET) 5-325 MG per tablet 1 tablet albuterol 0.833 mg/ml / ipratropium bromide 0.167 mg/ml inhalant solution (1 source)Anticholinergic, beta2-Adrenergic AgonistStart: 00-19-3294zzojiwsifvz- albuterol (DUONEB) nebulizer solution 1 ampulebenztropine mesylate 1 mg oral tablet (4 sources)Anticholinergic, AntihistamineStart: 91-52-2197qjpesmilpau 1 mg Tab Refills(s) 0 Start Date: 01/30/20 Status: Orderedcalcium chloride 0.0014 meq/ml / potassium chloride 0.004 meq/ml / sodium chloride 0.103 meq/ml / sodium lactate 0.028 meq/ml injectable solution (2 sources)Start: 05-06-2020 End: 86-05-3562hclvmemc ringers infusiondocusate sodium 100 mg oral capsule (20 sources)Start: 04-16-2024 End: 15-76-3870oumq 1 capsule by mouth twice daily as needed for constipation Docusate Sodium (Stool Softener) 100 mg capsule Active 0 .ROUTE .COMPLEX April 26, 2024 9:52am TAKE 1 CAPSULE BY MOUTH TWICE DAILY NEEDED FOR CONSTIPATION Complies with drug therapyStart: 04-16-2024 End: 81-90-0960zpgm 1 capsule by mouth twice daily as needed for constipation Docusate Sodium (Stool Softener) 100 mg capsule Discontinued 0 .ROUTE .COMPLEX April 16, 2024 8:58am April 26, 2024 8:57am TAKE 1 CAPSULE BY MOUTH TWICE DAILY NEEDED FOR CONSTIPATIONStart: 06-17-2022 End: 61-08-4418cyycwlnz sodium (Colace) 100 MG capsule 1 (one) time each day at the same time 06/17/2022 ActiveStart: 06-11-2022 End: 27-67-1651uyol 1 capsule by mouth twice daily as [...] prefilled syringe (1 source)Low Molecular Weight HeparinStart: 45-54-2547vftywyimyx (LOVENOX) 60 MG/0.6ML injection Inject 0.6 mLs into the skin 2 times daily 28 Syringe 0 0 05/07/2020 Active2 ml famotidine 10 mg/ml injection (1 source)Histamine-2 Receptor AntagonistStart: 59-71-6915mfmblwlris (PEPCID) injection 20 mg1 ml heparin sodium, porcine 5000 unt/ml prefilled syringe (2 sources)Unfractionated Heparin, Anti-coagulantStart: 05-06-2020 End: 76-92-6428ntngcrm (porcine) injection 5,000 Units1 ml HYDROmorphone hydrochloride 1 mg/ml cartridge (3 sources)Opioid AgonistStart: 32-66-5906TJTHBornkgbqx (DILAUDID) injection 1 mgStart: 05-06-2020 End: 82-95-3550JVAEXcbuyzllx (DILAUDID) 1 MG/ML injectionStart: 05-06-2020 End: 16-08-3652PMIOReeecrhma (DILAUDID) injection 0.5 mghydrOXYzine hydrochloride 50 mg oral tablet (4 sources)AntihistamineStart: 30-52-1867ymfu 1-2 tablets by mouth four times dailyhydrOXYzine hydrochloride 50 mg oral tablet See Instructions, 1-2 tab(s) Oral QID, # 60 tab(s), Refills(s) 2, Pharmacy: [facility] Start Date: 10/09/18 Status: OrderedlamoTRIgine 200 mg oral tablet (20 sources)Mood Stabilizer, Anti-epileptic AgentStart: 96-37-1011Wudeysssovc Active MG TABLET April 10, 2022 12:00amStart: 26-68-5359bqzyvwhqhao 200 mg Tab 300 mg = 1.5 tab(s), Oral, Daily, # 45 tab(s), Refills(s) 5, Pharmacy: [facility], 182, cm, 12/06/19 12:03:00 EDT, Height/Length Dosing, 200.7, kg, 11/28/19 9:08:00 EDT, Weight Dosing Start Date: 01/30/20 Status: OrderedStart: 10-04-2018 End: 28-12-6403norx 1 tablet by mouth once daily at bedtimeLamotrigine 200 mg tablet Discontinued 200 MG PO Daily at bedtime October 08, 2019 12:00am August 01, 2021 2:19pmLaMICtal 200 MG tablet 1.5 tabs Activelevothyroxine sodium 0.05 mg oral tablet (20 sources)l-ThyroxineStart: 02-24-2024 End: 36-86-5769ywom 1 tablet by mouth before mealtimelevothyroxine (Synthroid, Levoxyl) 50 MCG tablet Indications: Nontoxic goiter Take 1 tablet (50 mcg) by mouth in the morning. Take before meals. 90 tablet 3 08/22/2024 08/17/2025 ActiveStart: 10-13-2023 End: 79-75-9646ftaw 1 capsule by mouth once daily in the morningLevothyroxine 50 mcg capsule Discontinued 50 MCG PO Every morning October 13, 2023 12:00am April 26, 2024 9:56amStart: 10-08-2019 End: 06-30-6343rxyv 1 tablet by mouth every other dayLevothyroxine 175 mcg Tablet Discontinued 175 MCG PO every other day October 08, 2019 12:00am July 172021 2:19pm 1 tablet on odd daysStart: 10-08-2019 End: 69-88-4709ftim 1.5 tablets by mouth every other dayLevothyroxine 175 mcg Tablet Discontinued 262 MCG PO every other day October 08, 2019 12:00am July 172021 2:19pm 1.5 tabs every other day on even daysStart: 10-08-2019 End: 71-95-1846psar 1.5 tablets by mouth every other dayLevothyroxine Discontinued 262 MCG PO every other day October 08, 2019 12:00am August 01, 2021 2:19pm 1.5 tabs every other day on even daysStart: 25-24-9944pbei 1 tablet by mouth once dailylevothyroxine 175 mcg (0.175 mg) Tab 175 microgram = 1 tab(s), Oral, Daily, # 30 tab(s), Refills(s)0 Start Date: 09/03/18 Status: Ordered lidocaine 0.05 mg/mg medicated patch (20 sources)Antiarrhythmic, Amide Local AnestheticStart: 02-24-2024 End: 99-00-9159stkrv 1 dose transdermal route once dailyLidocaine 5 % adhesive patch,medicated Active 0 .ROUTE .COMPLEX April 26, 2024 9:53am APPLY 1 PATCH TOPICALLY ONCE DAILY. REMOVE AFTER 12 HOURS Complies with drug therapy Start: 02-24-2024 End: 95-95-3249axcqz 1 dose topically once dailyLidocaine 5 % adhesive patch,medicated Discontinued 1 PATCH TOPICAL Daily February 24, 2024 1:00am February 24, 2024 9:54am leave on most painful area for up to 12 hrsStart: 10-24-2023 End: 50-21-8111eznvo 1 dose transdermal route once dailyLidocaine 5 % adhesive patch,medicated Discontinued 0 .ROUTE .COMPLEX October 24, 2023 8:47am January 17, 2024 12:04pm APPLY 1 PATCH TOPICALLY ONCE DAILY. REMOVE AFTER 12 HOURS Start: 06-03-2023 End: 38-49-7134ojkkg 1 dose topically once daily as neededLidocaine 5 % adhesive patch,medicated Discontinued 1 PATCH TOPICAL Daily as needed June 03, 2023 1:00am October 24, 2023 8:48am REMOVE AFTER 12 HOURSStart: 60-83-7786Couuekzmt 5 % 1 patch remove after 12 hours Externally Once a day for 30 day(s) PRN Jan, ActiveLidocaine 5 % APPLY 1 PATCH TOPICALLY ONCE DAILY. REMOVE AFTER 12 HOURS. for 30 Activelithium carbonate 450 mg extended release oral tablet (8 sources)Start: 72-97-0177jzze 1 tablet by mouth once daily in the morning, then take 2 tablets by mouth once daily in the eveninglithium 450 mg oral tablet, extended release See Instructions, 1 tab po qAM and 2 tabs qPM, # 90 tab (s), Refills(s) 2, Pharmacy: [facility], 182, cm, 12/06/19 12:03:00 EDT, Height/Length Dosing, 200.7, kg, 11/28/19 9:08:00 EDT, Weight Dosing Start Date: 03/17/20 Status: Orderedmagnesium oxide 400 mg oral tablet (5 sources)Start: 08-08-1305mhap 1 tablet by mouth once in the morning, then take 1 tablet by mouth at bedtimemagnesium oxide (MAGOX) 400 mg tablet Indications: headache in second trimester Take 1 tablet (400 mg total) by mouth in the morning and 1 tablet (400 mg total) before bedtime. 120 tablet 1 12/05/2024 Active2 ml ondansetron 2 mg/ml injection (1 source)Serotonin-3 Receptor AntagonistStart: 39-36-2704luqplkqzjna (ZOFRAN) injection 4 mgpantoprazole 40 mg extended release oral tablet (4 sources)Proton Pump InhibitorStart: 11-79-1941bqui 1 tablet by mouth once dailypantoprazole 40 mg Oral EC Tab 40 mg = 1 tab(s), Oral, Daily, # 30 tab(s), Refills(s) 0 Start Date:09/03/18 Status: OrderedPNV Combo No.47-Iron-FA #1-DHA (PNV-DHA) 27 mg iron-1 mg -300 mg (5 sources)Start: 18-51-5726qqof 1 capsule by mouth once dailyPNV Combo No.47-Iron-FA #1-DHA (PNV-DHA) 27 mg iron-1 mg -300 mg Take 1 capsule by mouth once daily. 08/20/2024 Activepolysaccharide iron complex 391 mg oral capsule (20 sources)Start: 63-15-7767fkmt 1 capsule by mouth twice daily at bedtimeProFe 391.3 (180 Fe) MG capsule Indications: Other iron deficiency anemia TAKE 1 CAPSULE BY MOUTH TWICE DAILY IN THE MORNING AND BEFORE BEDTIME 60 capsule 3 11/06/2024 ActiveStart: 12-07-2023 End: 43-17-1674isib 1 capsule by mouth once dailyPolysaccharide Iron Complex (Pro Fe) 180 mg iron capsule Discontinued 180 MG PO Daily December 07, 2023 12:00am April 23, 2024 3:52pmtake 2 capsules by mouth twice daily Polysaccharide Iron Complex (PRO FE) 180 mg iron cap Take 2 capsules by mouth two times a day. Activeprenatal ll692-ticz-iejjn acid ( 19) 29 mg iron- 1 mg tablet,chewable (7 sources) gi044-yfiv-qirxz acid ( 19) 29 mg iron- 1 mg tablet,chewable Chew 1 tablet and swallow in the morning. Activepromethazine hydrochloride 25 mg oral tablet (8 sources)PhenothiazineStart: 06-35-4902gutf 1 tablet by mouth every six hours as needed for nauseapromethazine (PHENERGAN) 25 MG tablet Take 1 tablet by mouth every 6 hours as needed for Nausea 30 tablet 0 05/07/2020 ActiveStart: 05-06-2020 End: 22-42-6854fozj 1 tablet by mouth four times daily as needed for nausea promethazine (PHENERGAN) 25 MG tablet Take 1 tablet by mouth 4 times daily as needed for Nausea 20 tablet 0 05/07/2020 05/14/2020 ActiveStart: 05-06-2020 promethazine (PHENERGAN) injection 12.5 mgStart: 03-28-2019 End: 56-17-4029mcbq 1 tablet by mouth every four hours as needed for nausea and vomitingpromethazine (PHENERGAN) 25 MG tablet TAKE 1 TABLET BY MOUTH EVERY 4 HOURS NEEDED FOR NAUSEA ANDVOMITING 0 03/28/2019 05/07/2020 Discontinued (REORDER)QUEtiapine 25 mg oral tablet (20 sources)Atypical AntipsychoticStart: 67-13-6916vkmk 1 tablet by mouth at bedtimeQuetiapine 25 mg tablet Active 25 MG PO Bedtime April 10, 2022 1:00am Complies with drug therapyStart: 96-98-2048Jaeirhwkja Active MG TABLET April 10, 2022 12:00amStart: 49-52-1729hekg 2 tablets by mouth at bedtime quetiapine 50 mg oral tablet 100 mg = 2 tab(s), Oral, Bedtime, # 60 tab(s), Refills(s) 5, Pharmacy:[facility], 182, cm, 12/06/19 12:03:00 EDT, Height/Length Dosing, 200.7, kg, 11/28/19 9:08:00 EDT, Weight Dosing Start Date: 03/12/20 Status: Orderedtake 1 tablet by mouth once dailyQUEtiapine (SEROQUEL XR) 50 MG extended release tablet Take 50 mg by mouth nightly 0 Vwdrsx63 hr scopolamine 0.0139 mg/hr transdermal system (2 sources)AnticholinergicStart: 29-98-8431ffpwofbnnco (TRANSDERM-SCOP) transdermal patch 1 patchsertraline 25 mg oral tablet (20 sources)Serotonin Reuptake InhibitorStart: 58-65-3205brfk 1 tablet by mouth once dailysertraline (Zoloft) 25 MG tablet Take 25 mg by mouth 1 (one) time each day at the same time 09/25/2024 Active3 ml sodium chloride 9 mg/ml injection (2 sources)Start: 09-52-0762xdyjit chloride flush 0.9 % injection 10 mLSprintec oral tablet (4 sources)Start: 24-32-8381Vikurajw oral tablet 1 tab(s), Oral, Daily, 28 tab(s), Refill(s) 0 Start Date: 05/25/19 Status: Orderedsulfamethoxazole 400 mg / trimethoprim 80 mg oral tablet (7 sources)Dihydrofolate Reductase Inhibitor Antibacterial, Sulfonamide Antimicrobialtake 1 tablet by mouth every twenty-four hoursBactrim 400-80 MG 1 tablet Orally Once a day Activeziprasidone 80 mg oral capsule (20 sources)Atypical AntipsychoticStart: 29-82-4055zigv 1 capsule by mouth twice daily at mealtimeziprasidone 80 mg Cap 80 mg = 1 cap(s), Oral, BID, with food, # 60 cap(s), Refills(s) 2, Pharmacy: [facility], 182, cm, 12/06/19 12:03:00 EDT, Height/Length Dosing, 200.7, kg, 11/28/19 9:08:00 EDT, Weight Dosing Start Date: 03/12/20 Status: OrderedStart: 10-08-2019 End: 64-03-2846iduv 1 capsule by mouth twice dailyZiprasidone Hcl [...] oral tablet (20 sources)Opioid AgonistStart: 08-01-2021 End: 82-76-9386lrta 1 tablet by mouth every eight hours as needed for pain Hydrocodone-Acetaminophen 5-325 mg tablet Discontinued 1 TAB PO Q8H as needed for pain 7 2 August 01, 2021 April 10, 2022 7:18pmALPRAZolam 0.5 mg oral tablet (20 sources)BenzodiazepineStart: 06-17-2022 End: 92-19-4894iiov 1 tablet by mouth twice daily as needed for anxiety Alprazolam (Xanax) 0.5 mg tablet Discontinued 0.5 MG PO Twice daily as needed for Anxiety June 03, 2023 9:03am December 02, 2024 11:33pmStart: 06-10-2022 End: 49-16-1664slil 1 tablet by mouth once daily as needed for anxietyAlprazolam (Xanax) 0.5 mg Tablet Discontinued 0.5 MG PO Daily as needed for Anxiety June 10, 2022 1:00am June 03, 2023 9:04amStart: 38-28-9879thyf 1-2 tablets by mouth every 30 days at bedtime as needed for anxietyalprazolam 0.5 mg Tab 1-2 tabs, Oral, Bedtime, PRN for anxiety, 30 day supply; DX: F41, anxiety, # 60 tab(s), Refills(s) 1, Pharmacy: [facility], 182, cm, 12/06/19 12:03:00 EDT, Height/Length Dosing, 200.7, kg, 11/28/19 9:08:00 EDT, Weight Dosing Start Date: 01/30/20 Status: OrderedStart: 10-08-2019 End: 64-22-9082sjke 1 tablet by mouth three times daily as needed for anxiety Alprazolam (Xanax) 0.5 mg Tablet Discontinued 0.5 MG PO Three times daily as needed for Anxiety October 08, 2019 12:00am April 10, 2022 7:18pmatomoxetine 40 mg oral capsule (11 sources)Norepinephrine Reuptake InhibitorStart: 01-25-2022 End: 03-99-6773Arjrvqkcp 40 MG capsule 1 (one) time each day at the same time. 01/25/2022 10/22/2024 Rrzuxqgnmtss67 ml bupivacaine hydrochloride 5 mg/ml injection (1 source)Amide Local AnestheticStart: 05-06-2020 End: 53-16-6256kmtlsnwuhdl (PF) (MARCAINE) 0.5 % injection 200 mgStart: 05-06-2020 End: 00-37-5806mrjqcnkixnq (PF) (MARCAINE) 0.5 % injection 200 mg12 hr buPROPion hydrochloride 150 mg extended release oral tablet (15 sources)AminoketoneStart: 04-26-2024 End: 98-37-8956glax 1 tablet by mouth once dailyBupropion Hcl (Wellbutrin Sr) 150 mg tablet sustained-release 12 hr Discontinued 150 MG PO Daily April 26, 2024 1:00am December 02, 2024 11:34pm End: 07-63-4323xqfl 1 tablet by mouth once dailybuPROPion XL (Wellbutrin XL) 150 MG 24 hr tablet Take 150 mg by mouth Daily Do not crush, chew, or split. 10/22/2024 DiscontinuedbusPIRone hydrochloride 15 mg oral tablet (20 sources)Start: 04-10-2022 End: 53-28-0163scvo 1 tablet by mouth three times daily as neededBuspirone 15 mg tablet Discontinued 15 MG PO Three times daily June 10, 2022 1:00am June 03, 2023 9:04am TAKE 1 TABLET BY MOUTH THREE TIMES DAILY NEEDED FOR 30 DAYSStart: 04-10-2022 End: 67-17-6706pdge 1 tablet by mouth twice dailyBuspirone 15 mg tablet Discontinued 15 MG PO Twice daily June 03, 2023 9:01am December 02, 2024 11:34pmStart: 04-10-2022 End: 13-12-8776Dtmxgauyo Discontinued MG TABLET April 10, 2022 1:00am June 10, 2022 6:28pmceFAZolin (ANCEF) 3 g in dextrose 5 % 100 mL IVPB (1 source)Start: 05-06-2020 End: 13-49-2932cjKELukld (ANCEF) 3 g in dextrose 5 % 100 mL IVPBcyclobenzaprine hydrochloride 10 mg oral tablet (20 sources)Muscle RelaxantStart: 06-10-2022 End: 76-10-9927usma 1 tablet by mouth at bedtimeCyclobenzaprine 10 mg tablet Discontinued 10 MG PO Bedtime June 10, 2022 1:00am November 28, 2023 3:55pmStart: 05-07-2020 End: 47-05-9879bfcn 1 tablet by mouth once daily as needed for muscle spasms cyclobenzaprine (FLEXERIL) 10 MG tablet Take 1 tablet by mouth nightly as needed for Muscle spasms 10 tablet 0 05/07/2020 05/17/2020 ActiveStart: 05-88-1401zzdz 1 tablet by mouth twice daily as needed for muscle spasmscyclobenzaprine (FLEXERIL) 10 MG tablet Take 1 tablet by mouth 2 times daily as needed for Muscle spasms 20 tablet 0 05/07/2020 ActiveStart: 10-08-2019 End: 17-98-3772ugkp 1 tablet by mouth three times daily as needed for muscle spasmsCyclobenzaprine 10 mg tablet Discontinued 10 MG PO Three times daily as needed for Muscle Spasm October 08, 2019 12:00am August 01, 2021 2:19pm End: 18-47-8547apeb 5 mg by mouth three times daily as needed for muscle spasms cyclobenzaprine (Flexeril) 10 MG tablet Take 5 mg by mouth 3 (three) times a day as needed for muscle spasms 10/22/2024 Discontinueddiclofenac sodium 0.01 mg/mg topical gel (17 sources)Nonsteroidal Anti-inflammatory DrugStart: 11-28-2023 End: 43-38-7300wrvaf 1 g topically four times daily as needed for painDiclofenac Sodium (Aleve (Diclofenac)) 1 % gel Discontinued 1 GM TOPICAL Four times daily as neededfor pain November 28, 2023 12:00am January 17, 2024 12:03pm apply to single elbow, wrist or hand; for hand includes palm/fingers/back of handStart: 18-25-6539Kizzrxgobv Sodium 1 % 2 grams Externally Four times a day as needed for 30 day(s) Mar, Activedoxycycline hyclate 100 mg oral tablet (20 sources)Tetracycline-class DrugStart: 08-01-2021 End: 28-80-3767fizq 1 tablet by mouth twice dailyDoxycycline Hyclate 100 mg tablet Discontinued 100 MG PO Twice daily August 01, 2021 12:00am April 10, 2022 7:18pmergocalciferol 1.25 mg oral capsule (20 sources)Provitamin D2 CompoundStart: 10-08-2019 End: 20-02-0394Uqahzqptxulelq (Vitamin D2) (Vitamin D2) 1,250 mcg (50,000 unit) capsule Discontinued 69628 UNIT POevery week October 08, 2019 12:00am August 01, 2021 2:19pm Takes on Sundaystart: 85-46-2822Qkxaiww D2 2000 intl units oral capsule Refills(s) 0 Start Date: 05/25/19 Status: OrderedStart: 01-12-2019 End: 05-31-2605jhaj 1 capsule by mouth every weekvitamin D (ERGOCALCIFEROL) 44523 units CAPS capsule Indications: Vitamin D deficiency Take 1 capsule by mouth once a week for 8 doses 8 capsule 0 01/12/2019 05/08/2020 Discontinued (Stop Taking at Discharge) End: 82-94-5210Dcpbgtsvuazvuy (VITAMIN D2 PO) Take 50,000 capsules by mouth once a week 0 05/08/2020 Discontinued (Stop Taking at Discharge)Ergocalciferol (VITAMIN D2 PO) Take 50,000 capsules by mouth once a week 0 ActiveNorgestimate- Ethinyl Estradiol (20 sources)Progestin, EstrogenStart: 10-08-2019 End: 62-54-1421hfrl 1 tablet by mouth once dailyNorgestimate-Ethinyl Estradiol (Sprintec (28)) 0.25-35 mg-mcg tablet Discontinued 1 TAB PO Daily October 08, 2019 12:00am August 01, 2021 2:19pmStart: 10-08-2019 End: 80-82-1008cqrl 1 tablet by mouth once dailyNorgestimate-Ethinyl Estradiol (Sprintec (28)) 0.25-35 mg-mcg tablet Discontinued 1 TAB PO Daily October 07, 2019 11:00pm August 01, 2021 1:19pmStart: 49-01-1485wxcj 1 tablet by mouth once dailySPRINTEC 28 0.25-35 MG-MCG per tablet TAKE 1 TABLET BY MOUTH ONCE DAILY 3 01/13/2019 Active2 ml fentaNYL 0.05 mg/ml injection (1 source)Opioid AgonistStart: 05-06-2020 End: 51-50-3524zjawhVIW (SUBLIMAZE) injection 25 mcgferrous sulfate 325 mg oral tablet (20 sources)Start: 01-30-2020 End: 67-75-7385ycve 1 tablet by mouth once dailyFerrous Sulfate 325 mg (65 mg iron) tablet Discontinued 325 MG PO Daily June 11, 2022 1:00am August 29, 2023 11:07amgabapentin 300 mg oral capsule (1 source)Anti-epileptic AgentStart: 05-05-2020 End: 21-24-9836txws 1 capsule by mouth once daily, then take 1 capsule by mouth, then take 1 capsule by mouthgabapentin (NEURONTIN) 300 MG capsule Take 1 capsule by mouth daily for 2 days. Take one pill the night before and one the morning of surgery 2 capsule 0 05/05/2020 05/08/2020 Discontinued (Stop Taking at Discharge)iohexol (OMNIPAQUE 240) injection 30 mL (1 source)Start: 05-07-2020 End: 43-09-8734yvqvozg (OMNIPAQUE 240) injection 30 mL1 ml ketorolac tromethamine 15 mg/ml cartridge (1 source)Nonsteroidal Anti-inflammatory Drug, Cyclooxygenase InhibitorStart: 05-07-2020 End: 41-10-3110smdpzgtlj (TORADOL) injection 15 mgStart: 05-07-2020 End: 19-71-4461csobibvcv (TORADOL) injection 15 mglansoprazole 30 mg delayed release oral capsule (20 sources)Proton Pump InhibitorStart: 10-08-2019 End: 43-50-2682ltdw 1 capsule by mouth once daily in the morningLansoprazole 30 mg capsule,delayed release(DR/EC) Discontinued 30 MG PO Every morning November 28, 2023 12:00am February 10, 2024 11:58amletrozole 2.5 mg oral tablet (4 sources)Aromatase Inhibitor End: 62-78-7850opvc 1 tablet by mouth once dailyletrozole (Femara) 2.5 MG chemo tablet Take by mouth Daily. Take with or without food. 09/20/2024 Discontinued (Therapy completed)Lidocaine 5 % adhesive patch,medicated (3 sources)Start: 02-24-2024 End: 75-36-6507ougqi 1 dose transdermal route once dailyLidocaine 5 % adhesive patch,medicated Discontinued 0 .ROUTE .COMPLEX February 24, 2024 8:53am J anuary 2024 8:57am APPLY 1 PATCH TOPICALLY ONCE DAILY. REMOVE AFTER 12 HOURSStart: 81-89-3187saynw 1 dose transdermal route once dailyLidocaine 5 % adhesive patch,medicated Active 0 .ROUTE .COMPLEX February 24, 2024 8:53am APPLY 1 PATCH TOPICALLY ONCE DAILY. REMOVE AFTER 12 HOURSlurasidone hydrochloride 40 mg oral tablet (1 source)Atypical Antipsychotic End: 46-20-1013oxlr 1 tablet by mouth once dailylurasidone (LATUDA) 40 MG TABS tablet Take by mouth daily 0 04/22/2020 Discontinued (LIST CLEANUP) medroxyPROGESTERone acetate 10 mg oral tablet (20 sources)ProgestinStart: 04-10-2022 End: 57-01-7073Imhqvmrxcegzwqewzmn (Provera) 10 mg tablet Discontinued 10 MG PO Daily 01 25April 10, 2022 1:00am June 10, 2022 6:28pm begin day 16 of cyclemethylPREDNISolone acetate 80 mg/ml injectable suspension (20 sources)CorticosteroidStart: 52-11-4668SIYE-Medrol Sep, 80 mgStart: 61-13-4894xzsbcwVROIPNNuufbt 4 MG as directed Orally daily for 6 days August, ActiveStart: 13-49-3822klrzicYIZNPSZpglzo 4 MG as directed Orally daily for 6 days Jan, Not-Taking2 ml midazolam 1 mg/ml injection (1 source)BenzodiazepineStart: 05-06-2020 End: 64-55-0778btoyfpeso PF (VERSED) injection 1 mgmupirocin 20 mg/ml topical cream (20 sources)RNA Synthetase Inhibitor AntibacterialStart: 06-10-2022 End: 63-70-6044Oorpxxokg Calcium 2 % cream Discontinued 1 APPLIC TOPICAL Twice daily as needed for GENITAL BOILS June 10, 2022 1:00am December 02, 2024 11:34pmStart: 91-16-5853Etkzqgirr Calcium 2 % 1 application Externally Twice a day for 5 day(s) Jan, ActiveStart: 00-08-8543Phesmvarp Calcium 2 % 1 application Externally Twice a day for 5 day(s) Jan, Activenaltrexone hydrochloride 50 mg oral tablet (20 sources)Opioid AntagonistStart: 10-25-2023 End: 41-29-6448exbmtsiszo (Depade) 50 MG tablet every 12 (twelve) hours 10/25/2023 04/21/2024 ActiveStart: 06-03-2023 End: 46-38-1667bccn 2 tablets by mouth twice dailynaltrexone 50 mg tablet Take 2 tablets by mouth two times a day. 06/03/2023 ActiveStart: 06-03-2023 End: 55-02-8689jxgv 1 tablet by mouth twice dailyNaltrexone 50 mg tablet Discontinued 100 MG PO Twice daily April 23, 2024 3:51pm December 02, 2024 11:34pmStart: 41-08-0581xihu 50 mg by mouth once dailyNaltrexone Active 50 MG PO Daily June 03, 2023 1:00amtake 1 tablet by mouth every twenty-four hours Naltrexone HCl 50 MG 1 tablet Orally Once a day ActiveoxyCODONE hydrochloride 5 mg oral tablet (17 sources)Opioid AgonistStart: 12-09-2023 End: 68-13-0312yfuo 1 tablet by mouth at mealtime for painOxycodone 5 mg tablet Discontinued 5 MG PO .q6-8hrs as needed for severe pain 03 22December 09, 2023 December 20, 2023 10:47am Take with food. Do not fill until 12/10/23.Start: 12-06-2023 End: 83-69-2770ikdd 1 tablet by mouth every six hours as needed for pain Oxycodone 5 mg tablet Discontinued 5 MG PO Q6H as needed for Pain 04 09December 06, 2023 December 07, 2023 7:13amrisperiDONE 4 mg oral tablet (1 source)Atypical AntipsychoticStart: 09-19-2018 End: 25-11-3543jwxd 1 tablet by mouth in the morningrisperiDONE (RISPERDAL) 4 MG tablet TAKE 1 2 (ONE HALF) TABLET BY MOUTH IN THE MORNING AND 1 TAB INTHE EVENING 2 09/19/2018 04/22/2020 Discontinued (LIST CLEANUP)traMADol hydrochloride 50 mg oral tablet (17 sources)Opioid AgonistStart: 12-07-2023 End: 51-75-0694anau 1 tablet by mouth every eight hours as needed for pain Tramadol 50 mg tablet Discontinued 50 MG PO Every 8 hours as needed for pain 15 7 December 1443:44pm January 17, 2024 12:04pmtrihexyphenidyl hydrochloride 2 mg oral tablet (1 source)Start: 03-28-2019 End: 53-22-4867okjv 1 tablet by mouth twice dailytrihexyphenidyl (ARTANE) 2 MG tablet TAKE 1 TABLET BY MOUTH TWICE DAILY FOR 30 DAYS 0 03/28/2019 04/22/2020 Discontinued (LIST CLEANUP) Problems Active Problems Problem ClassificationProblemDateDocumented DateEpisodic/ChronicAbdominal pain (20 sources)Flank pain; Translations: [Unspecified abdominal pain]07-03-2021 EpisodicAdministrative/social admission (2 sources)Treatment plan given; Translations: [Counseling, unspecified] 38-76-1482HdhrbrlpTlqtrzya reactions (5 sources)Acute urticaria; Translations: [Other urticaria]84-10-0240Zittwvwn Anxiety disorders (20 sources)Mixed anxiety and depressive disorder; Translations: [Anxiety disorder, unspecified]62-12-2379TadgehaFfztnxchf-deficit, conduct, and disruptive behavior disorders (20 sources)Attention deficit hyperactivity disorder, predominantly inattentive type; Translations: [Attention-deficit hyperactivity disorder, predominantly inattentive type]44-29-1648BqvlylpUroyuxnqi-deficit, conduct, and disruptive behavior disorders (1 source)Attention-deficit hyperactivity disorder, predominantly inattentive typeChronicAttention-deficit, conduct, and disruptive behavior disorders (20 sources)Attention deficit hyperactivity disorder; Translations: [Attention- deficit hyperactivity disorder, predominantly inattentive type]ChronicBiliary tract disease (4 sources)Abczjjbos41-60-1298ErhivclqXqkdplgcvxoah and procreative management (14 sources)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 partner; Translations: [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]Onset: 952329-53-4301MlibtnysUqmbqntfgf and other anemia (19 sources)Anemia; Translations: [Anemia, unspecified]13-59-9558Lscihtqq Deficiency and other anemia (20 sources)Iron deficiency anemia; Translations: [Iron deficiency anemia, unspecified]69-11-9021AcoximnrIdggwwjgqd and other anemia (4 sources)Anemia, unspecified; Translations: [Anemia, unspecified]06-10-2022 EpisodicDeficiency and other anemia (4 sources)Iron deficiency anemia, unspecified; Translations: [Iron deficiency anemia, unspecified]99-29-2289AcfglijtVgqdtbbtth and other anemia (2 sources)Other iron deficiency anemiasEpisodicDisorders usually diagnosed in infancy, childhood, or adolescence (20 sources)Non-organic primary nocturnal enuresis; Translations: [Enuresis not due to a substance or known physiological condition]ChronicEsophageal disorders (20 sources)Gastroesophageal reflux disease without esophagitis; Translations: [Gastro-esophageal reflux disease without esophagitis]Onset: 07-16-2021 Resolved: 98-47-6346LbirvqqNlzvim infertility (20 sources)Anovulation; Translations: [Female infertility associated with anovulation]Onset: 061024-42-1632IynhxscYhpqc of unknown origin (16 sources)Fever; Translations: [Fever, unspecified]67-75-6147Urcbdrds Genitourinary symptoms and ill-defined conditions (2 sources)Painful micturition, unspecified; Translations: [Other microscopic hematuria]EpisodicHeadache; including migraine (1 source)Headache; including migraine; Translations: [Headache, unspecified] Onset: 37-30-4091Tjbnymksyw during ; abruptio placenta; placenta previa (4 sources)Bleeding from female genital tract during ; Translations: [Antepartum hemorrhage, unspecified, unspecified trimester]Onset: 10-18-2024 87-09-5305WckllkrnBuiqtssdpehvk and screening for infectious disease (8 sources)Patient encounter status; Translations: [Encounter for screening for infectious and parasitic diseases, unspecified]Onset: EpisodicMenstrual disorders (20 sources)Menorrhagia; Translations: [Excessive and frequent menstruation with regular cycle]ChronicMood disorders (20 sources)Bipolar disorder; Translations: [Bipolar affective disorder, currently depressed, mild]Onset: 026467-64-9101MeqihpeQducde and vomiting (16 sources)Vomiting; Translations: [Vomiting, unspecified]21-31-0736Krhjxypr Nutritional deficiencies (20 sources)Vitamin D deficiency; Translations: [Vitamin D deficiency, unspecified]Onset: 01-12-2019 Resolved: 920476-67-8585ZmkfzeeKpgcyhfhtzr deficiencies (4 sources)Iron deficiency; Translations: [Vitamin A deficiency, unspecified] Onset: 07-16-2021 Resolved: 77-35-9862WknsejklXupueyaywmtxhi (20 sources)Arthritis of shoulder region joint; Translations: [Primary osteoarthritis, unspecified shoulder]ChronicOther complications of (5 sources)Maternal obesity complicating , childbirth and the puerperium, antepartum; Translations: [Obesity complicating , second trimester]64-58-0722DrlihcpTlcus complications of (1 source)Obesity complicating , second trimester; Translations: [Obesity complicating , second trimester]Onset: 18-27-0194SuqbmklGiemt complications of (4 sources)Supervision of resulting from assisted reproductive technology, first trimester; Translations: [ resulting from assisted reproductive technology]Onset: 570484-67-6467FudzrpwtBuwcb complications of (2 sources)Conceived by in vitro fertilization; Translations: [Supervision of resulting from assisted reproductive technology, first trimester] 19-43-7447PeaikzbhNxvhi complications of (12 sources)Hypothyroidism in ; Translations: [Endocrine, nutritional and metabolic diseases complicating , second trimester]Onset: 253037-82-5564PrnlekcqSwlwt complications of (9 sources)Bipolar disorder; Translations: [Other mental disorders complicating , second trimester]Onset: 117749-16-9071GabubjrxAejpx complications of (2 sources)Supervision of resulting from assisted reproductive technology, unspecified trimester; Translations: [ resulting from assisted reproductive technology]Onset: 907273-68-0179LgttgopgOoyhh complications of (8 sources)Headache; Translations: [Other specified related conditions, second trimester]Onset: 096219-52-1522VdfdpsblFylww complications of (1 source)Other specified related conditions, second trimester; Translations: [Other specified related conditions, second trimester] Onset: 97-91-2837UlgplzqvTvfsc complications of (1 source)Bariatric surgery status complicating , unspecified trimester; 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 complicating , unspecified trimester]Onset: 72-14-9487NwpaozaeNrgox complications of (1 source)Endocrine, nutritional and metabolic diseases complicating , second trimester; Translations: [Endocrine, nutritional and metabolic diseases complicating , second trimester]Onset: 80-20-8877DcfqubnjHfopg complications of (1 source)Other mental disorders complicating , second trimester; Translations: [Other mental disorders complicating , second trimester] Onset: 92-66-9131YhuoamugNxlgq connective tissue disease (4 sources)Plantar -80-3571UunsbvliJxgex connective tissue disease (1 source)Lateral epicondylitis, right elbowEpisodicOther connective tissue disease (2 sources)Bursitis of right shoulderEpisodicOther connective tissue disease (20 sources)Disorder of ligament, unspecified site; Translations: [Laxity of ligament]EpisodicOther connective tissue disease (14 sources)Laxity of ligament; Translations: [Disorder of ligament, unspecified site]54-13-5213ZcjhnklhIlbbinc on above:right shoulderOther connective tissue disease (4 sources)Bilateral plantar fasciitis; Translations: [Plantar fasciitis, bilateral]Onset: Other female genital disorders (20 sources)Abnormal uterine bleeding; Translations: [Other specified abnormal uterine and vaginal bleeding]56-71-9182NukulnsPnzgm gastrointestinal disorders (15 sources)Constipation; Translations: [Constipation, unspecified]06-08-2023 EpisodicOther gastrointestinal disorders (1 source)Constipation, unspecified; Translations: [Constipation, unspecified] 49-59-3058DzqclgfoUlynf gastrointestinal disorders (11 sources)History of bypass of stomach; 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]Onset: 959509-92-8625AupldcspMlcfm hematologic conditions (4 sources)H/O: anemia - iron deficient; Translations: [Personal history of diseases of the blood and blood-forming organs and certain disorders involving the immune mechanism]33-27-8573TicggwndUyrss inflammatory condition of skin (1 source)Erythema intertrigoEpisodicOther nervous system disorders (20 sources)Chronic pain; Translations: [Other chronic pain]17-58-8047Ilvcsoe Other nervous system disorders (2 sources)Other chronic pain; Translations: [Other chronic pain]ChronicOther nervous system disorders (12 sources)Carpal tunnel syndrome of right wrist; Translations: [Carpal tunnel syndrome, right upper limb]44-36-7975ZgsygkmBacxq nervous system disorders (20 sources)Carpal tunnel syndrome, right upper limb; Translations: [Carpal tunnel syndrome]81-54-9623YnyzrpfNhxfq nervous system disorders (1 source)Postoperative pain ; Translations: [Post-op pain]EpisodicOther nervous system disorders (14 sources)Numbness of hand; Translations: [Anesthesia of skin]10-13-2023 EpisodicOther nervous system disorders (13 sources)Anesthesia of skin; Translations: [Disturbance of skin sensation] 64-48-1555CfgpyzxpZvgpx non-traumatic joint disorders (16 sources)Derangement of right [...] right shoulder joint; Translations: [Other instability, right shoulder]84-34-4763GxlyrclkQyyqq nutritional; endocrine; and metabolic disorders (8 sources)Body mass index 40+ - severely obese; Translations: [Morbid obesity with BMI of 50.0-59.9, adult]Onset: 12-05-2018 Resolved: 690309-67-8847UytaxcvNahic nutritional; endocrine; and metabolic disorders (4 sources)Morbid kdnsvhy78-79-5720HfhueebJxdwr and delivery including normal (16 sources)Early stage of ; Translations: [Encounter for supervision of normal , unspecified, unspecified trimester]Onset: 09-03-2024 00-13-1039KpbkswwdBhdma screening for suspected conditions (not mental disorders or infectious disease) (5 sources)Thyroid function tests abnormal; Translations: [Abnormal results of thyroid function studies]Onset: 878285-44-9410CrecvxdrMweoo skin disorders (1 source)Follicular disorder, unspecifiedEpisodicResidual codes; unclassified (20 sources)Obstructive sleep apnea syndrome; Translations: [Obstructive sleep apnea (adult) (pediatric)]15-89-6570TmtudlhPyxhkcg on above:patient denies. sleep study 2010Residual codes; unclassified (18 sources)Other specified postprocedural states; Translations: [Other postprocedural status]Onset: 07-16-2021 Resolved: 31-94-3343LwqqbqdqDzydxvof codes; unclassified (15 sources)Chill; Translations: [Chills (without fever)]61-39-6096Djzzagao Residual codes; unclassified (20 sources)History of sleeve gastrectomy; Translations: [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]]19-91-7433MzwubeycAoexfyl on above:Aprilesidual codes; unclassified (1 source)Chills (without fever); Translations: [Chills (without fever)] 36-40-4491NadopexnXqgoiiiw codes; unclassified (1 source)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]; Translations: [Personal history of surgery to other organs]23-26-5149GpyxgrjnYaqgmjeb codes; unclassified (9 sources)History of arthroscopic procedure on shoulder; Translations: [Other specified postprocedural states]28-08-6397VtwhmeebIsqcpqor codes; unclassified (1 source)Gestation period, 9 weeks; Translations: [9 weeks gestation of ]74-08-5816QklybknqTpmlaoyk codes; unclassified (2 sources)Gestation period, 13 weeks; Translations: [13 weeks gestation of ]06-87-3078TrvdcozsFvheichh codes; unclassified (2 sources)Gestation period, 18 weeks; Translations: [18 weeks gestation of ]25-63-7383RxollgyuZkodwdnd codes; unclassified (1 source)Gestation period, 20 weeks; Translations: [20 weeks gestation of ]25-65-4805UhervjvhOtjezuiz codes; unclassified (2 sources)Gestation period, 22 weeks; Translations: [22 weeks gestation of ]66-86-7269LibmtejeJxxfnsri codes; unclassified (2 sources)Gestation period, 26 weeks; Translations: [26 weeks gestation of ]85-26-2081ShgmfocxPvozudni codes; unclassified (2 sources)Gestation period, 29 weeks; Translations: [29 weeks gestation of ]43-01-3749NckkoectWsdyseeq codes; unclassified (2 sources)Gestation period, 31 weeks; Translations: [31 weeks gestation of ]59-17-3535FrgocviuYcxb and subcutaneous tissue infections (20 sources)Abscess; Translations: [Cutaneous abscess, unspecified]08-01-2021 EpisodicSprains and strains (20 sources)Strain of unspecified muscle, fascia and tendon at shoulder and upper arm level, right arm, initialencounter; Translations: [Strain of other muscles, fascia and tendons at shoulder and upper arm level, right arm, initial encounter]EpisodicSubstance-related disorders (4 sources)Marijuana user; Translations: [Marijuana use]Onset: 12-05-2018 96-63-0144Jizxzit disorders (20 sources)Hypothyroidism; Translations: [Acquired hypothyroidism]Onset: 12-05-2018 Resolved: 946803-53-6652YhxgidbHowbhnf disorders (6 sources)Disorder of thyroid gland; Translations: [Disorder of thyroid, unspecified]93-26-2751BautkdblEkqqoqkuxhnq (2 sources)History of sleeve gastrectomy; Translations: [Status post laparoscopic sleeve gastrectomy]Onset: 088182-02-4118Sphwdgarfejj (5 sources)Patient encounter status; Translations: [Pre-op testing]09-03-2018 Unclassified (1 source) 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)61-40-6683Wyhtzejgvpvv (20 sources)OB RemindersOnset: 99-99-680444026596-65-5957Yrkemlmqphve (2 sources)keep next scheduled appointmentUnclassified (1 source)IUI pregnancyOnset: 38-83-8726Wwebgmabqlwe (1 source)Pee's ThyroiditisOnset: 12-05-2024 Past or Other Problems Problem ClassificationProblemDateDocumented DateEpisodic/ChronicScreening and history of mental health and substance abuse codes (1 source)Personal history of nicotine dependenceOnset: 07-16-2021 Resolved: 78-70-8534KhcnpgokPnfzuopwwhbc (3 sources)History of bypass of lvtkrih22-99-3508Gztdjdeaksli (1 source)Encounter for supervision of resulting from assisted reproductive technology, tzdebhbojm75-87-9304LFREYYG: Highlighted row has been ruled out!Unclassified (1 source)No known active adrvezlq64-20-1936 Results Test NameValueInterpretationReference RangeFacilityUS OB BPP W NON-STRESS on 04[place] [address] Ultrasound Report Signed Patient: JAZ SANDERS MR#: [id number] : 1995 Acct:[id number] Age/Sex: 29 / F ADM Date: 02/25/25 Loc: US Attending Dr: Les Martinez D.O. Ordering Physician: Les Martinez D.O. Date of Service: 02/25/25 Procedure(s): US OB BPP w non-stress Accession Number(s): [id number] cc: Les Martinez D.O.; AMANDA FORD [place] [id number] Patient Name: JAZ SANDERS MRN: [id number] date: 1995 Sex: F Assigned Patient Location: [facility] Current Patient Location: Accession/Order Number: [id number] Exam Date: 02/25/2025 14:03 Report Date: 02/26/2025 [...] Umana M.D. 02/26/2025 8:30 AM Dictation Location: [place] [address] Electronically authenticated by: [id number] Y Date: 02/26/2025 08:30 Dictated By: Alana Umana M.D. Signed By: 02/26/25831 DD/ 9 TD/TT: Rigger:TBHRadiology, Radiologist, MD - 02/26/2025 [place] [address] Ultrasound Report Signed Patient: JAZ SANDERS MR#: [id number] : 1995 Acct:[id number] Age/Sex: 29 / F ADM Date: 02/25/25 Loc: US Attending Dr: Les Martinez D.O. Ordering Physician: Les Martinez D.O. Date of Service: 02/25/25 Procedure(s): US OB BPP w non-stress Accession Number(s): [id number] cc: Les Martinez D.O.; AMANDA FORD [address] [address] Patient Name: JAZ SANDERS MRN: [id number] date: 1995 Sex: F Assigned Patient Location: [facility] Current Patient Location: Accession/Order Number: [id number] Exam Date: 02/25/2025 14:03 Report Date: 02/26/2025 [...] Umana M.D. 02/26/2025 8:30 AM Dictation Location: [place] [address] Electronically authenticated by: [id number] Y Date: 02/26/2025 08:30 Dictated By: Alana Umana M.D. Signed By: 02/26/25831 DD/ 9 TD/TT: Rigger: GUDELIA HealthcareRadiology Study observation (narrative)NOMS HealthcareUS OB BPP W NON-STRESSOrdered By: Radiologist Radiology on 33-74-7812SYSBFitzgibbon Hospital Work Phone: aLL THYROID STIM HORMONEon 96-15-5782YEH Qn1.347 m[IU]/LNOMS HealthcareCLINISYNCNOMS HealthcareUrinalysis macro (dipstick) panel (U)on 07-67-9041Upyjztfkd, UANegativeNegative - 4(70) +++ mg/dLNOMS Healthcare Blood, UANegativeNegative - 50 Yehuda/mcLNOMS HealthcareClarity, UAClearNOMS HealthcareColor, UAYellowNOMS HealthcareGlucose, UANegativeNegative - 2000(110) ++++ mg/dLNOSD HealthcareInterpretation and review of laboratory resultsNormal NOMS HealthcareKetones, UANegativeNegative - 160(16) ++++ mg/dLNOMS Healthcare Leukocytes, UANegativeNegative - 500+++ Kourtney/mcLNOSD HealthcareNitrite, UA NegativeNegative - PositiveNOMS HealthcarepH, UA6.05 - 9NOMS HealthcareProtein, UANegativeNegative - 2000(20) ++++ mg/dLNOMS HealthcareSpec Grav, UA1.0201 - 1.03NOSD HealthcareUrobilinogen, UA1.00.2 - 12 mg/dLNOMS HealthcareNOMS HealthcareUrinalysis macro (dipstick) panel (U)on 99-45-6323Bqoiqxuhi, UA NegativeNegative - 4(70) +++ mg/dLNOSD HealthcareBlood, UANegativeNegative - 50 Yehuda/mcLNOSD HealthcareClarity, UAClearNOMS HealthcareColor, UAYellowNOSD HealthcareGlucose, UANegativeNegative - 2000(110) ++++ mg/dLNOSD Healthcare Interpretation and review of laboratory resultsAbnormalNOMS HealthcareKetones, UAPositiveNegative - 160(16) ++++ mg/dLHE[facility] VALLEY [facility] HealthcareLeukocytes, UATrace Negative - 500+++ Kourtney/mcLHEBER VALLEY MEDICAL [facility]ENTER HealthcareNitrite, UANegativeNegative - Positive NOMS HealthcarepH, UA6.55 - 9NOMS HealthcareProtein, UANegativeNegative - 2000(20) ++++ mg/dLNOSD HealthcareSpec Grav, UA1.0101 - 1.03NOSD Healthcare Urobilinogen, UA2.00.2 - 12 mg/dLNOMS [facility] Medical CenterNOMS HealthcareUS OB FOLLOW UP TRANSABDOMINAL APPROACHon 96-92-9628GN OB FOLLOW UP TRANSABDOMINAL APPROACH FINDINGS: Comparison [...] Delivery: 04/23/25 Gestational Age as of 01/16/2025: 31g4eCrhdyunarh macro (dipstick) panel (U)on 24-48-0326Hwjowpstf, UANegativeNegative - 4(70) +++ mg/dLNOMS HealthcareBlood, UANegativeNegative [...] mg/dLNOMS HealthcareNOMS Healthcare ALL THYROID STIM HORMONEon 58-22-6493XOC Qn2.449 m[IU]/LNOMS HealthcareCLINISYNC NOMS HealthcareALL CBC WITH AUTO DIFFon 88-91-6428IXAAJLXUF ABSOLUTE PVNI0RJOQ HealthcareBasophils/100 WBC (Bld)0.3 %0.2 - 2.0 %NOMS HealthcareEosinophils/100 WBC (Bld)1.2 %0.9 - 7.0 %[facility] HealthcareErythrocyte distribution width (RBC) [Ratio]13.2 %11.0 - 15.0 %[facility] HealthcareHematocrit (Bld) [Volume fraction]35.6 %Low36.0 - 48.0 %[facility] HealthcareHemoglobin (Bld) [Mass/Vol]12 g/dL12.0 - 16.0 g/dLFitzgibbon HospitalIMMATURE GRANULOCYTES ABS AUTO0.1HighNOSaint John's Health SystemImmature granulocytes/100 WBC (Bld)0.8 %High0.0 - 0.5 %[facility] HealthcareInterpretation and review of laboratory resultsAbnormalFitzgibbon HospitalLYMPHOCYTES ABSOLUTE AUTO2.3 NOMWestern Missouri Medical CenterLymphocytes/100 WBC (Bld)19.7 %Low20.5 - 60.0 %[facility]'sH (RBC) [Entitic mass]29.6 pg26.7 - 34.0 pgFitzgibbon HospitalMCHC (RBC) [Mass/Vol] 33.7 g/dL29.9 - 35.2 g/dLFitzgibbon HospitalMCV (RBC) [Entitic vol]87.7 fL81.0 - 99.0 fLFitzgibbon HospitalMONOCYTES ABSOLUTE AUTO0.7NOSaint John's Health SystemMonocytes/100 WBC (Bld)6.2 %1.7 - 12.0 %F[facility]gib[facility] HospitalNEUTROPHILS ABSOLUTE AUTO8.5HighNOSaint John's Health SystemNeutrophils/100 WBC (Bld)71.8 %43.0 - 75.0 %F[facility]gibbon HospitalPlatelet mean volume (Bld) [Entitic vol]8.7 fLLow9.5 - 13.5 fLFitzgibbon HospitalTBH EO #0.1 [facility]bon HospitalTB EXJ044FFAPBates County [facility] RBC4.06LowNOSaint John's Health SystemTB WBC11.8 HighFitzgibbon HospitalCLINISYNCNDeaconess Incarnate Word Health SystemGLUCOSE 1 HOURon 35-95-7958Luotdee [Mass/Vol]118 mg/dLNINF - 130 mg/dLTransylvania Regional Hospital Urinalysis macro (dipstick) panel (U)on 45-59-8238Vdipzbdxq, UANegativeNegative - 4(70) +++ mg/dLNOMS HealthcareBlood, UANegativeNegative - 50 Yehuda/mcLNOMS HealthcareClarity, UAClearNOMS HealthcareColor, UAYellowNOMS HealthcareGlucose, UANegativeNegative - 2000(110) ++++ mg/dLNOSD HealthcareInterpretation and review of laboratory resultsNormalNOMS HealthcareKetones, UANegativeNegative - 160(16) ++++ mg/dLNOSD HealthcareLeukocytes, UANegativeNegative - 500+++ Kourtney/mcL NOMS HealthcareNitrite, UANegativeNegative - PositiveNOMS HealthcarepH, UA75 - 9 NOMS HealthcareProtein, UANegativeNegative - 2000(20) ++++ mg/dLNOSD Healthcare Spec Grav, UA1.011 - 1.03NOMS HealthcareUrobilinogen, UA1.00.2 - 12 mg/dLNOSD HealthcareNOSD HealthcareNo Panel Informationon 58-97-8173HNPWYEWSYANDM HealthcareTB UA (CLEAN/CATCH) MANAGER CULTURE/MICRO IF IND.on 67-63-2542ZMEAPUWQG URINE NegativeNEGATIVENOMS HealthcareBLOOD URINESMALLAbnormalNEGATIVENOSD Healthcare Clarity (U)CLEARCLEARNOMS HealthcareColor (U)LT. YELLOWYELLOWNOSD Healthcare GLUCOSE URINE UANegativeNEGATIVE mg/dLNOSD HealthcareInterpretation and review of laboratory resultsAbnormalNOMS HealthcareKetones Ql (U)NegativeNEGATIVE mg/dL NOM HealthcareLeukocyte esterase Test strip Ql (U)NegativeNEGATIVENOMS HealthcareNITRITE URINENegativeNEGATIVENOMS HealthcarepH (U)5.5 [pH]5.0 - 9.0 NOMS HealthcarePROTEIN URINENegativeNEG/TRACE mg/dLNOSD HealthcareSPECIFIC GRAVITY URINE1.0151.005 - 1.025NOSD HealthcareURINE MICROSCOPIC INDICATEDYESNOSD HealthcareUROBILINOGEN URINE0.2 EU/dL0.2 - 1.0 EU/dLFitzgibbon HospitalTB URINE MICROSCOPIC ONLYon 87-93-2686NJTNLTQN URINENONE SEENNONE SEEN #/HPFNOMS HealthcareCAST SEEN?NONE SEENNONE SEEN #/LPFNOMS HealthcareCRYSTALS SEEN?None SeenNone Seen #/HPFNOMS HealthcareMUCUS URINENONE SEENNONE SEENNOSD Healthcare SQUAMOUS EPITHELIAL CELL URINERARENONE/RARE #/LPFNOSaint John's Health SystemTBH RBC0-2NOMS [facility] CenterTB WBCNONE SEENNONE SEEN #/HPFNOSaint John's Health SystemURINE CULTURE INDICATED NONOMS HealthcareUS OB 14+ WEEKS ANATOMY SCANon 52-06-9510WN OB 14+ WEEKS ANATOMY SCANEXAM: US OB [...] II, MD, PHD at 06-Dec-2024 08:04:50 AM [facility] TeleradiologyNormalNot AvailableComment on above:Order Comment: US OB ANATOMY SINGLE W US OB CERVICAL LENGTH Estimated Date of Delivery: 04/23/25 Gestational Age as of 11/20/2024: 28d5wUopcmnqkwa complete panel (U)on 12-03-2024 Comment c/o urinary symptoms or increased blood pressure Name Collection Type:: VoidedFIRELANDSNOMS HealthcareAppearance of Urineon 44-13-9792Gdcugexndp (U)ClearNormalClearNOMS HealthcareComment on above:Order Comment: Comment c/o urinary symptoms or increased blood pressure Name Collection Type:: VoidedPerformed By: #### ADDONUAPLUS #### [address] [address] USABacteria [Presence] in Urine by AutomatedOrdered By: Eduardo Cruz on 49-27-2458Epwvhybe Auto Ql (U)1+ [HPF]HighNone SeenGalion Community HospitalBilirubin Test strip Ql (U)Ordered By: Eduardo Cruz on 06-31-0691Madjivhwc Ql (U)NegativeNegativeGalion Community HospitalColor of Urine by Autoon 80-92-2945Qlbdc (U)Light-YellowNormalYellowNOMS Healthcare Comment on above:Order Comment: Comment c/o urinary symptoms or increased blood pressure Name Collection Type:: VoidedPerformed By: #### ADDONUAPLUS #### [facility] [address] [place] [address] USADipstick and Microscopicon 82-14-5472Ktxbbpis,Urine1+ [HPF]NormalNone SeenBaptist Health Wolfson Children'S Hospital Physician GroupComment on above:Order Comment: Comment c/o urinary symptoms or increased blood pressure Name Collection Type:: VoidedPerformed By: #### ADDONUAPLUS #### [address] [address] USABILIRUBIN,URINENegativeNormalNegativeNOMS Healthcare Comment on above:Order Comment: Comment c/o urinary symptoms or increased blood pressure Name Collection Type:: VoidedPerformed By: #### ADDONUAPLUS #### [place] [address] USAGlucose Ql (U)NormalNormalNormalNOMS HealthcareComment on above:Order Comment: Comment c/o urinary symptoms or increased blood pressure Name Collection Type:: VoidedPerformed By: #### ADDONUAPLUS #### [place] [address] USAHyaline Casts,UrineNoneNormal0-8The [facility] Physician GroupComment on above:Order Comment: Comment c/o urinary symptoms or increased blood pressure Name Collection Type:: VoidedPerformed By: #### ADDONUAPLUS #### [place] [address] USAMucus,Urine1+ [LPF]Critically abnormalThe [facility] Physician GroupComment on above:Order Comment: Comment c/o urinary symptoms or increased blood pressure Name Collection Type:: VoidedResult Comment: PERFORMED BY: [place] [address] PATHOLOGIST NIGHT GUARD DAMIÁN DOSHI M.D.Performed By: #### ADDONUAPLUS #### [place] [address] USANITRITE,URINENegativeNormalNegativeNOMS HealthcareComment on above:Order Comment: Comment c/o urinary symptoms or increased blood pressure Name Collection Type:: VoidedPerformed By: #### ADDONUAPLUS #### [place] [address] USAOCCULT BLOOD,URINE3+NormalNegativeNOMS HealthcareComment on above:Order Comment: Comment c/o urinary symptoms or increased blood pressure Name Collection Type:: VoidedResult Comment: PERFORMED BY: [place] [address] PATHOLOGIST NIGHT GUARD DAMIÁN DOSHI M.D.Performed By: #### ADDONUAPLUS #### [facility] [address] [place] [address] USAPROTEIN,URINENegativeNormalNegativeNOMS HealthcareComment on above:Order Comment: Comment c/o urinary symptoms or increased blood pressure Name Collection Type:: VoidedPerformed By: #### ADDONUAPLUS #### [place] [address] USARBC,Wnbtq5-5Aqzjux7-0Wef [facility] Physician GroupComment on above:Order Comment: Comment c/o urinary symptoms or increased blood pressure Name Collection Type:: VoidedPerformed By: #### ADDONUAPLUS #### [place] [address] USASPECIFICY GRAVITY,URINE1.785Vkdjlm8.001-1.030NOMS HealthcareComment on above:Order Comment: Comment c/o urinary symptoms or increased blood pressure Name Collection Type:: VoidedPerformed By: #### ADDONUAPLUS #### [place] [address] USASquamous Epithelial Cell,Hdndb4-5Bhoius5-3Lda [facility] Physician GroupComment on above:Order Comment: Comment c/o urinary symptoms or increased blood pressure Name Collection Type:: VoidedPerformed By: #### ADDONUAPLUS #### [place] [address] USAUROBILINOGEN,URINENormalNormalNormalNOMS HealthcareComment on above:Order Comment: Comment c/o urinary symptoms or increased blood pressure Name Collection Type:: VoidedPerformed By: #### ADDONUAPLUS #### [place] [address] USAWBC,Jvphm1-5Bfzcxo0-2Xwg [facility] Physician GroupComment on above:Order Comment: Comment c/o urinary symptoms or increased blood pressure Name Collection Type:: VoidedPerformed By: #### ADDONUAPLUS #### [place] [address] USAEpithelial cells.squamous [#/area] in Urine sediment by Automated countOrdered By: Eduardo Cruz on 23-25-3735Qbuqoeaxyt cells.squamous Auto (Urine sed) [#/Area]1-2 [HPF]0-2FCherrington Hospital Erythrocytes [#/area] in Urine sediment by Automated countOrdered By: Eduardo Cruz on 42-60-9133SPG Auto (Urine sed) [#/Area]1-2 [HPF]0-4FCherrington HospitalGlucose [Mass/volume] in Urine by Test stripOrdered By: Eduardo Cruz on 58-26-4590Vcskobn Test strip (U) [Mass/Vol]Normal mg/dLNormalGalion Community HospitalHemoglobin Test strip Ql (U)Ordered By: Eduardo Cruz on 40-76-4686Pkoicfdmvg Ql (U)3+HighNegativeGalion Community Hospital Hyaline casts [#/area] in Urine sediment by Automated countOrdered By: Eduardo Cruz on 50-35-1063Avapjwn casts Auto (Urine sed) [#/Area]None [LPF]0-8Gal[facility] Community HospitalKetones [Presence] in Urine by Test stripon 12-02-2024 Ketones Ql (U)NegativeNormalNegativeNOMS HealthcareComment on above:Order Comment: Comment c/o urinary symptoms or increased blood pressure Name Collection Type:: VoidedPerformed By: #### ADDONUAPLUS #### [facility] [address] [place], [place] [id number] USALeukocyte esterase [Presence] in Urine by Test stripon 37-52-7297Tawjmospb esterase Test strip Ql (U)NegativeNormalNegativeNOMS HealthcareComment on above:Order Comment: Comment c/o urinary symptoms or increased blood pressure Name Collection Type:: VoidedPerformed By: #### ADDONUAPLUS #### [facility] [address] [place], [place] [address] USALeukocytes [#/area] in Urine sediment by Automated count Ordered By: Eduardo Cruz on 25-81-5753SCM Auto (Urine sed) [#/Area]1-2 [HPF]0-4 [facility] HospitalMucus [Presence] in Urine by AutomatedOrdered By: Eduardo Cruz on 95-47-2934Nzbin Auto Ql (U)1+ [LPF]AbnormalGalion Community HospitalNitrite Test strip Ql (U)Ordered By: Eduardo Cruz on 54-06-5470Udwrfpi Ql (U)NegativeNegOhioHealth Doctors HospitalProtein Test strip (U) [Mass/Vol]Ordered By: Eduardo Cruz on 84-62-6233Cuccisz (U) [Mass/Vol]NegativeNegativeSouthern Ohio Medical Centerpecific gravity Test strip (U) [Rel density]Ordered By: Eduardo Cruz on 81-22-4938Ruiahwre gravity (U) [Rel density]1.0171.001-1.030Gal[facility] Community HospitalUrobilinogen Test strip (U) [Mass/Vol]Ordered By: Eduardo Cisneroscarlos on 11-99-1928Djztlwhbflyi (U) [Mass/Vol]Normal mg/dLNormGalion Community HospitalpH of Urine by Test stripon 35-58-3379wV (U)5.5 [pH]Normal5.0-9.0NOMS HealthcareComment on above:Order Comment: Comment c/o urinary symptoms or increased blood pressure Name Collection Type:: VoidedPerformed By: #### ADDONUAPLUS #### [place] [address] USABasophils Auto (Bld) [#/Vol]Ordered By: Elizabeth Osborne ([place]) on 42-97-3676Plsltspeu (Bld) [#/Vol]0.0 10 3/uL0.0-0.1FCherrington HospitalBasophils/100 WBC Auto (Bld)Ordered By: Elizabeth Osborne ([place]) on 06-79-0070Bwlotrong/100 WBC (Bld)0.3 %0.2-2.0[facility] Eosinophils/100 WBC Auto (Bld)Ordered By: (Roman) Elizabeth Osborne on 12-01-2024 Eosinophils/100 WBC (Bld)1.8 %0.9-7.0[facility] Erythrocyte distribution width Auto (RBC) [Ratio]Ordered By: Elizabeth Osborne ([place]) on 01-42-0893Dyjcwqnmzmo distribution width (RBC) [Ratio]14.0 %11.0-15.0 [facility] HospitalGlobulin Calc (S) [Mass/Vol]Ordered By: (Ow[place]) Elizabeth Osborne on 60-81-1762Azdvajvm (S) [Mass/Vol]3.6 g/dLGalion Community HospitalGlomerular filtration rate (GFR) estimation in non- AmericanOrdered By: (Roman) Elizabeth India on 13-26-1689OEZ/1.73 sq M.predicted among non-blacks MDRD (S/P/Bld) [Vol rate/Area]mL/min/{1.73_m2}>=60 mL/min/1.73m 2FCherrington HospitalHematocrit Auto (Bld) [Volume fraction]Ordered By: (Roman) Elizabeth Osborne on 68-94-8387Rafkyiqkht (Bld) [Volume fraction]38.0 %36.0-48.0[facility] HospitalHemoglobin [Mass/volume] in BloodOrdered By: (Roman) Elizabeth Osborne on 38-33-8833Arjehweecv (Bld) [Mass/Vol]13.0 g/dL12.0-16.0[facility] HospitalLaboratory - Chemistry and Chemistry - challengeOrdered By: (Roman) Elizabeth Osborne on 98-08-9296Syphwjnjd Ql (U)NegativeNEGATIVEGalion Community Hospital Glucose (U) [Mass/Vol]NegativeNEGATIVEGalion Community HospitalKetones Ql (U)NegativeNEGATIVEGalion Community HospitalpH (U)6.0 [pH]5.0-9.0 [facility] Centerpecific gravity (U) [Rel density]1.025 1.005-1.025Gal[facility] HospitalUrobilinogen Qn (U)1.0 {Fabián'U}/dL0.2-1.0[facility] HospitalAlbumin [Mass/Vol]3.1 g/dL Low3.4-5.0[facility] HospitalALP [Catalytic activity/Vol]45 U/LLow 46-116[facility] HospitalALT [Catalytic activity/Vol]20 U/L14-59 [facility] HospitalAST [Catalytic activity/Vol]14 U/JPxz93-74 [facility] HospitalBilirubin [Mass/Vol]0.4 mg/dL0.2-1.0[facility] HospitalCalcium [Mass/Vol]8.6 mg/dL8.5-10.1FCherrington HospitalChloride [Moles/Vol]106 mmol/K37-584MgzvncnmtGalion Community HospitalCO2 [Moles/Vol]25.7 mmol/L21.0-32.0[facility] Creatinine [Mass/Vol]0.37 mg/dLLow0.55-1.02[facility] GFR/1.73 sq M.predicted MDRD (S/P/Bld) [Vol rate/Area]mL/min/{1.73_m2}>=60 mL/min/1.73m 2FCherrington HospitalGlucose [Mass/Vol]61 mg/dLLow 74-106[facility] HospitalPotassium [Moles/Vol]3.9 mmol/L3.5-5.1 [facility] HospitalProtein [Mass/Vol]6.7 g/dL6.4-8.2FSelect Medical Cleveland Clinic Rehabilitation Hospital, Avonodium [Moles/Vol]139 mmol/O040-029CdqwgovvcGalion Community HospitalUrea nitrogen [Mass/Vol]3.0 mg/dLLow7.0-18.0[facility] HospitalUrea nitrogen/Creatinine [Mass ratio]8.1 mg/mgGalion Community HospitalLaboratory - Hematology and Cell countsOrdered By: Elizabeth Osborne ([place]) on 88-11-0382Umbxsifg granulocytes/100 WBC (Bld)1.0 %High0.0-0.5 [facility] HospitalLaboratory - Specimen informationOrdered By: Elizabeth Osborne ([place]) on 76-27-4020Ctkicxjace (U)CLEARCLEARFCherrington HospitalColor (U)LT. YELLOWYELLOWGalion Community Hospital Laboratory - UrinalysisOrdered By: Elizabeth Osborne ([place]) on 91-15-9445Yqxbubzce esterase Test strip Ql (U)NegativeNEGATIVEGalion Community Hospital Nitrite Ql (U)NegativeNEGATIVEGalion Community HospitalProtein Ql (U) NegativeNEG/TRACEGalion Community HospitalLeukocytes [#/volume] corrected for nucleated erythrocytes in Blood by Automated counOrdered By: (Owens) Elizabeth Osborne on 54-21-3208QMQ corrected for nucl RBC Auto (Bld) [#/Vol]10.0 10 3/uL4.0-11.0[facility] HospitalLymphocytes Auto (Bld) [#/Vol]Ordered By: (Owens) Elizabethnura Thomason on 89-39-8693Wmkrwcymdbr (Bld) [#/Vol]2.2 10 3/uL1.2-3.8[facility] HospitalLymphocytes/100 WBC Auto (Bld)Ordered By: (Owens) Elizabethnura Thomason on 48-69-8267Sagicadibmg/100 WBC (Bld)22.1 %20.5-60.0[facility] Auto (RBC) [Entitic mass]Ordered By: (Owens) Elizabethnura Thomason on 41-01-3197IDY (RBC) [Entitic mass] 29.8 pg26.7-34.0[facility] HospitalMCHC Auto (RBC) [Mass/Vol] Ordered By: (Owens) Elizabethnura Thomason on 70-31-4347TSKG (RBC) [Mass/Vol]34.2 g/dL 29.9-35.2FCherrington HospitalMCV Auto (RBC) [Entitic vol]Ordered By: (Owens) Elizabethnura Thomason on 78-76-2332HNW (RBC) [Entitic vol]87.2 fL81.0-99.0 [facility] HospitalMonocytes Auto (Bld) [#/Vol]Ordered By: (Owens) Elizabethnura Thomason on 30-03-5806Ivzrlqzuo (Bld) [#/Vol]0.7 10 3/uL0.3-0.8 [facility] HospitalMonocytes/100 WBC Auto (Bld)Ordered By: (Owens) Elizabeth India on 62-82-9326Aonjjxujb/100 WBC (Bld)6.5 %1.7-12.0 [facility] HospitalNeutrophils Auto (Bld) [#/Vol]Ordered By: (Owens) Elizabeth India on 47-39-2196Tcyhzyruxfv (Bld) [#/Vol]6.9 10 3/uLHigh 1.4-6.5FCherrington HospitalNeutrophils/100 WBC Auto (Bld)Ordered By: Angelina) Elizabeth Osborne on 05-40-4618Tbcadzwnmok/100 WBC (Bld)68.3 %43.0-75.0 [facility] HospitalNo Panel InformationOrdered By: (Roman) Elizabeth Osborne on 11-21-2556Rkxnv Microscopic ReviewNOGalion Community HospitalUrine Occult BloodNegativeNEGATIVEGalion Community Hospital Eosinophils # (Auto)0.2 10 3/uL0.0-0.7FCherrington HospitalImmature Granulocyte # (Auto)0.10 10 3/uLHigh0.00-0.03[facility] Platelet mean volume Auto (Bld) [Entitic vol]Ordered By: Elizabeth Osborne ([place]) on 61-04-7089Gdxvermq mean volume (Bld) [Entitic vol]8.3 fLLow9.5-13.5FCherrington HospitalPlatelets Auto (Bld) [#/Vol]Ordered By: Angelina) Elizabeth Osborne on 94-49-7073Lgtcqaanu (Bld) [#/Vol]177 10 3/wM191-622IfcsvhvzlGalion Community HospitalRBC Auto (Bld) [#/Vol]Ordered By: Angelina) Elizabeth Osborne on 00-89-8219FGX (Bld) [#/Vol]4.36 10 6/uL4.20-5.40[facility] Centererum or plasma albumin/globulin mass ratioOrdered By: (Roman) Elizabeth Osborne on 43-09-4360Lgnatzd/Globulin [Mass ratio]0.9 {ratio}[facility] Centererum or plasma anion gap determinationOrdered By: Angelina) Elizabeth Osborne on 79-14-8854Cxnbo gap [Moles/Vol]11.2 mmol/LFCherrington HospitalBasophils Auto (Bld) [#/Vol]Ordered By: Chris Dickerson on 16-45-5681Tntegfnkm (Bld) [#/Vol]0.0 10 3/uL0.0-0.1FCherrington HospitalBasophils/100 WBC Auto (Bld)Ordered By: Chris Dickerson on 11-30-2024 Basophils/100 WBC (Bld)0.2 %0.2-2.0[facility] Eosinophils/100 WBC Auto (Bld)Ordered By: Chris Dickerson on 11-30-2024 Eosinophils/100 WBC (Bld)1.7 %0.9-7.0[facility] Erythrocyte distribution width Auto (RBC) [Ratio]Ordered By: Chris Dickerson on 84-72-3859Moyopiyxbpq distribution width (RBC) [Ratio]14.1 %11.0-15.0[facility] HospitalGlobulin Calc (S) [Mass/Vol]Ordered By: Chris Dickerson on 53-80-8504Vfvpwgxc (S) [Mass/Vol]3.3 g/dLGalion Community Hospital Glomerular filtration rate (GFR) estimation in non- AmericanOrdered By: Chris Dickerson on 18-36-7290AFG/1.73 sq M.predicted among non-blacks MDRD (S/P/Bld) [Vol rate/Area]mL/min/{1.73_m2}>=60 mL/min/1.73m 2FCherrington HospitalHematocrit Auto (Bld) [Volume fraction]Ordered By: Chris Dickerson on 58-37-7815Xqvswdmpwe (Bld) [Volume fraction]36.2 %36.0-48.0[facility] HospitalHemoglobin [Mass/volume] in BloodOrdered By: Chris Dickerson on 21-16-4713Hmvqfjhlcp (Bld) [Mass/Vol]12.6 g/dL12.0-16.0[facility] HospitalLaboratory - Chemistry and Chemistry - challengeOrdered By: Chris Dickerson on 68-98-7867Gefxqabyf Ql (U)NegativeNEGATIVEGalion Community HospitalGlucose (U) [Mass/Vol]NegativeNEGATIVEGalion Community HospitalKetones Ql (U)NegativeNEGATIVEGalion Community HospitalpH (U)6.0 [pH]5.0-9.0[facility] Centerpecific gravity (U) [Rel density] 1.0151.005-1.025[facility] HospitalUrobilinogen Qn (U)1.0 {Fabián'U}/dL0.2-1.0[facility] HospitalAlbumin [Mass/Vol]3.1 g/dL Low3.4-5.0[facility] HospitalALP [Catalytic activity/Vol]47 U/L 46-116[facility] HospitalALT [Catalytic activity/Vol]20 U/L14-59 [facility] HospitalAST [Catalytic activity/Vol]12 U/HRrz63-36 [facility] HospitalBilirubin [Mass/Vol]0.3 mg/dL0.2-1.0[facility] HospitalBilirubin.direct [Mass/Vol]0.1 mg/dL0.0-0.2FCherrington HospitalCalcium [Mass/Vol]8.8 mg/dL8.5-10.1FCherrington HospitalChloride [Moles/Vol]108 mmol/WHzfb02-870ZxlbobjveGalion Community HospitalCO2 [Moles/Vol]26.0 mmol/L21.0-32.0[facility] Creatinine [Mass/Vol]0.32 mg/dLLow0.55-1.02[facility] GFR/1.73 sq M.predicted MDRD (S/P/Bld) [Vol rate/Area]mL/min/{1.73_m2}>=60 mL/min/1.73m 2FCherrington HospitalGlucose [Mass/Vol]74 mg/oQ82-711 [facility] HospitalPotassium [Moles/Vol]4.1 mmol/L3.5-5.1FCherrington HospitalProtein [Mass/Vol]6.4 g/dL6.4-8.2FSelect Medical Cleveland Clinic Rehabilitation Hospital, Avonodium [Moles/Vol]142 mmol/S302-121LuiwoprxtGalion Community HospitalUrate [Mass/Vol]3.0 mg/dL2.6-6.0[facility] HospitalUrea nitrogen [Mass/Vol]7.0 mg/dL7.0-18.0[facility] HospitalUrea nitrogen/Creatinine [Mass ratio]21.9 mg/mgGalion Community Hospital Laboratory - Hematology and Cell countsOrdered By: Chris Dickerson on 11-30-2024 Immature granulocytes/100 WBC (Bld)0.7 %High0.0-0.5FCherrington HospitalLaboratory - Specimen informationOrdered By: Chris Dickerson on 11-30-2024 Appearance (U)CLEARCLEARFCherrington HospitalColor (U)LT. YELLOW YELLOWGalion Community HospitalLaboratory - UrinalysisOrdered By: Chris Dickerson on 50-36-7323Ijuithfwv esterase Test strip Ql (U)SMALLAbnormal NEGATIVEGalion Community HospitalMucus Ql (Urine sed)TRACEAbnormalNONE SEENGalion Community HospitalNitrite Ql (U)NegativeNEGATIVEGalion Community HospitalProtein Ql (U)NegativeNEG/TRACEGalion Community HospitalLeukocytes [#/volume] corrected for nucleated erythrocytes in Blood by Automated counOrdered By: Chris Dickerson on 99-41-4147BHD corrected for nucl RBC Auto (Bld) [#/Vol]8.7 10 3/uL4.0-11.0[facility] Lymphocytes Auto (Bld) [#/Vol]Ordered By: Chris Dickerson on 63-93-4092Zwuuxyxcfdi (Bld) [#/Vol]2.0 10 3/uL1.2-3.8[facility] HospitalLymphocytes/100 WBC Auto (Bld)Ordered By: Chris Dickerson on 56-85-3053Zlkborighhd/100 WBC (Bld) 22.9 %20.5-60.0[facility] Auto (RBC) [Entitic mass] Ordered By: Chris Dickerson on 06-14-8484LDM (RBC) [Entitic mass]30.0 pg26.7-34.0 [facility] HospitalMCHC Auto (RBC) [Mass/Vol]Ordered By: Chris Dickerson on 76-35-7688ACAI (RBC) [Mass/Vol]34.8 g/dL29.9-35.2FCherrington HospitalMCV Auto (RBC) [Entitic vol]Ordered By: Chris Dickerson on 02-33-6650LVH (RBC) [Entitic vol]86.2 fL81.0-99.0[facility] HospitalMonocytes Auto (Bld) [#/Vol]Ordered By: Chris Dickerson on 11-30-2024 Monocytes (Bld) [#/Vol]0.6 10 3/uL0.3-0.8[facility] Monocytes/100 WBC Auto (Bld)Ordered By: Chris Dickerson on 40-74-7832Fgfptaqzt/100 WBC (Bld)7.2 %1.7-12.0[facility] HospitalNeutrophils Auto (Bld) [#/Vol]Ordered By: Chris Dickerson on 03-40-8904Tpkraogbxkb (Bld) [#/Vol]5.9 10 3/uL1.4-6.5FCherrington HospitalNeutrophils/100 WBC Auto (Bld) Ordered By: Chris Dickerson on 56-99-4694Bezrlbwonuh/100 WBC (Bld)67.3 %43.0-75.0 [facility] HospitalNo Panel InformationOrdered By: Chris Dickerson on 35-57-4724Dywjh BacteriaMODERATE #/HPFAbnormalNONE [facility] HospitalUrine Culture ReflexedYE-[facility] Urine Occult BloodNegativeNEGATIVEGalion Community HospitalUrine Other CastsNONE SEEN #/LPFNONE [facility] HospitalUrine Other CrystalsNone Seen #/HPFNone [facility] CenterUrine RBC0-2 #/HPF0-2FCherrington HospitalUrine Squamous Epithelial CellsFEW #/LPFAbnormalNONE/RAREGalion Community HospitalUrine WBC0-2 #/HPF AbnormalNONE [facility] HospitalEosinophils # (Auto)0.2 10 3/uL0.0-0.7FCherrington HospitalImmature Granulocyte # (Auto)0.06 10 3/uLHigh0.00-0.03[facility] HospitalPlatelet mean volume Auto (Bld) [Entitic vol]Ordered By: Chris Dickerson on 33-06-8785Okrfjqcg mean volume (Bld) [Entitic vol]8.7 fLLow9.5-13.5FCherrington HospitalPlatelets Auto (Bld) [#/Vol]Ordered By: Chris Dickerson on 00-03-8424Yzbktheks (Bld) [#/Vol] 185 10 3/hO289-419BwaokhognGalion Community HospitalRBC Auto (Bld) [#/Vol]Ordered By: Chris Dickerson on 46-67-7674MII (Bld) [#/Vol]4.20 10 6/uL4.20-5.40[facility] Centererum or plasma albumin/globulin mass ratioOrdered By: Chris Dickerson on 24-30-6364Hrlhoix/Globulin [Mass ratio]0.9 {ratio}[facility] Centererum or plasma anion gap determinationOrdered By: Chris Dickerson on 43-01-8373Uobma gap [Moles/Vol]12.1 mmol/LFCherrington HospitalUrine Cultureon 17-83-7282Vxbeemjd identified Cx Nom (U)50,000 colonies/ml mixed bacterial skin contaminants 2 Days PERFORMED BY: [place] [address] PATHOLOGIST NIGHT GUARD DAMIÁN DOSHI M.D.NormalBaptist Health Wolfson Children'S Hospital Physician GroupComment on above: Performed By: #### CUU #### [place] [address] USARECURRENT VAGINITIS (HTRX)on 42-31-3173ZHGLHIHAE VAGINAE0 NOMS HealthcareATOPOBIUM VAGINAENot detectedNOMS HealthcareBVAB 2,3 (BACTERIAL VAGINOSIS ASSOCIATED BACTERIA 2, 3); MOBILUNCUS [id number] HealthcareBVAB 2,3 (BACTERIAL VAGINOSIS ASSOCIATED BACTERIA 2, 3); MOBILUNCUS SPPNot detectedNOMS HealthcareCANDIDA ALBICANS, PARAPSILOSIS, [id number] HealthcareCANDIDA ALBICANS, PARAPSILOSIS, TROPICALISNot detectedNOMS HealthcareCANDIDA GLABRATA0 NOMS HealthcareCANDIDA GLABRATANot detectedNOMS HealthcareCANDIDA [id number] HealthcareCANDIDA KRUSEINot detectedNOMS HealthcareCHLAMYDIA PGJVGUEKRAQ2HXPZ HealthcareCHLAMYDIA TRACHOMATISNot detectedNOMS HealthcareGARDNERELLA VAGINALIS0 NOMS HealthcareGARDNERELLA VAGINALISNot detectedNOMS HealthcareMEGASPHAERA (TYPES 1, 2)0NOMS HealthcareMEGASPHAERA (TYPES 1, 2)Not detectedNOMS Healthcare MYCOPLASMA [id number] HealthcareMYCOPLASMA GENITALIUMNot detectedNOMS HealthcareNEISSERIA GMPDXOBOOJC1FPMO HealthcareNEISSERIA GONORRHOEAENot detected NOMS HealthcareTRICHOMONAS UMPDTQIPM6YMQA HealthcareTRICHOMONAS VAGINALISNot detectedNOMS HealthcareNOMS HealthcareALL THYROID STIM HORMONEon 99-08-1842UHS Qn1.702 m[IU]/LNOMS HealthcareCLINISYNCNOMS HealthcareAlpha-fetoprotein (AFP) measurement (ghyetlwk-kk-kwaikh)Ordered By: Les Martinez on 04-84-9151HII [MoM] 0.87.[facility] HospitalAssess gestational ageOrdered By: Les Martinez on 82-63-6019Vpyxehswhrb age18.0 weeks.[facility] Estimation of maternal age-specific risk of Down syndrome birthOrdered By: Les Martinez on 31-21-3735Ifi [Time]30.1 yr.[facility] HospitalInsulin dependent diabetes mellitus detectionOrdered By: Les Martinez on 11-20-2024 Insulin dependent diabetes mellitus QlNo.[facility] Interpretation of serum or plasma second trimester quad maternal screen (narrative reOrdered By: Les Martinez on 85-44-3651Jfrqqm trimester quad maternal screen Gonzales [Interp]Comment.[facility] [...] Chemistry - challengeOrdered By: Les Martinez on 00-32-7121FTU Qn1.702 m[IU]/L 0.358-3.740[facility] HospitalNo Panel InformationOrdered By: Les Martinez on 68-03-0798YIN Triple Screen CommentComment.[facility] HospitalComment on above:Gisel Gandhi, Ph.D., DABCCDirectorReferences: Available Upon Request.Multiples Of Median Cutoffs For AFP ElevationsSingleton 2.5 Black 2.8IDD 2.0 Twins 4.5 Abbreviation DefinitionsIDD - Insulin Dep DiabetesOSBR - Open Spina Bifida RiskFor further inquiries contact [employer] at [phone].This test was developed and its performance characteristicsdetermined by [employer]. It has not been cleared or approvedby the Food and Drug Administration.Performed at: [facility] [email or web address] [id number] [place], [place] [id number] Director: Lorena Ellis [facility], Phone: [phone] Fetoprotein Results ReceivedReport.[facility] HospitalGestational Age Calculation MethodUltrasound.[facility] HospitalComment on above:18.0 on 11/20/2024Recalculations are not recommended when gestational datingby LMP and ultrasound are within 10 days. Maternal Quad Test [id number].[facility] HospitalMaternal RaceOther .[facility] HospitalMultiple PregnancyNo.[facility] Centererum or plasma llzca-8-ulfbkxebcud measurement (mass/volume) Ordered By: Les Martinez on 75-39-6776UGL [Mass/Vol]27.6 ng/mL.[facility] HospitalUrinalysis macro (dipstick) panel (U)on 06-32-0025Nneycdubj, UA NegativeNegative - 4(70) +++ mg/dLNOMS HealthcareBlood, UANegativeNegative - 50 Yehuda/mcLNOMS HealthcareClarity, UAClearNOMS HealthcareColor, UAYellowNOMS HealthcareGlucose, UANegativeNegative - 2000(110) ++++ mg/dLNOMS Healthcare Interpretation and review of laboratory resultsAbnormalNOSD HealthcareKetones, UANegativeNegative - 160(16) ++++ mg/dLFitzgibbon HospitalLeukocytes, UA2+Negative - 500+++ Kourtney/mcLNOSaint John's Health SystemNitrite, UANegativeNegative - PositiveNOSD HealthcarepH, UA85 - 9NOSD HealthcareProtein, UANegativeNegative - 2000(20) ++++ mg/dLFitzgibbon HospitalSpec Grav, UA1.011 - 1.03NOSaint John's Health SystemUrobilinogen, UA1.0 0.2 - 12 mg/dLYadkin Valley Community HospitalLaboratory - Chemistry and Chemistry - challengeOrdered By: Chris Dickerson on 14-29-1247Migbfbgwm Ql (U)Negative NEGATIVEGalion Community HospitalGlucose (U) [Mass/Vol]NegativeNEGATIVE [facility] HospitalKetones Ql (U)NegativeNEGElyria Memorial HospitalpH (U)7.5 [pH]5.0-9.0[facility] Specific gravity (U) [Rel density]1.0101.005-1.025[facility] HospitalUrobilinogen Qn (U)1.0 {Fabián'U}/dL0.2-1.0[facility] HospitalLaboratory - Specimen informationOrdered By: Chris Dickerson on 11-17-2024 Appearance (U)CLEARCLEARFCherrington HospitalColor (U)LT. YELLOW YELLOWGalion Community HospitalLaboratory - UrinalysisOrdered By: Chris Dickerson on 48-54-3347Bhpvqhdqt esterase Test strip Ql (U)NegativeNEGATIVE [facility] HospitalMucus Ql (Urine sed)NONE SEENNONE [facility] HospitalNitrite Ql (U)NegativeNEGElyria Memorial HospitalProtein Ql (U)NegativeNEG/TRACEGalion Community HospitalNo Panel InformationOrdered By: Chris Dickerson on 97-70-5293Eeigp BacteriaTRACE #/HPF AbnormalNONE [facility] HospitalUrine Culture ReflexedNO [facility] HospitalUrine Occult BloodNegativeNEGElyria Memorial HospitalUrine Other CastsNONE SEEN #/LPFNONE SEENUnc Health Blue Ridge - Valdeseelands Regional Medical CenterUrine Other CrystalsNone Seen #/HPFNone [facility] Medical CenterUrine RBCNONE SEEN #/HPF0-2FCherrington HospitalUrine Squamous Epithelial CellsRARE #/LPFNONE/RAREGalion Community HospitalUrine WBCNONE SEEN #/HPFNONE [facility] Ultrasound - Officeon 78-87-6883Ohpvedher Study observation (narrative)ProMedicUnited Hospital SystemUrinalysis macro (dipstick) panel (U)on 14-07-9873Xqpormfig, UA NegativeNegative - 4(70) +++ mg/dLNOMS HealthcareBlood, [...] HealthcareAppearance of UrineOrdered By: Kassidy Arriaza on 93-19-8888Ngutcpzozs (U)ClearNormalClearGalion Community HospitalComment on above:Order Comment: Name Collection Type:: Clean- Voided MidstreamPerformed By: #### UA, CUU #### [place] [address] USABilirubin Test strip Ql (U)Ordered By: Kassidy Arriaza on 66-54-7449Eoakbjpne Ql (U)NegativeNegOhioHealth Doctors Hospital Chlamydia/GC Amplificationon 02-07-5955Upyxyrolp Trachomotis, NAANegativeNormal NegativeThe [facility]atham Physician GroupComment on above:Order Comment: SOURCE OF SPECIMEN: GenitalPerformed By: #### GCCHLAMAMP #### [facility] , #### CUGEN #### [place] [address] USANeisseria Gonorrhoeae, NAANegativeNormalNegativeThe [facility] Physician GroupComment on above:Order Comment: SOURCE OF SPECIMEN: GenitalResult Comment: Performed at: = - [facility] [id number] Deployment Specialist: Dagmar Love MD, Phone: [phone] PERFORMED BY: [place] [address] PATHOLOGIST NIGHT GUARD DAMIÁN DOSHI M.D.Performed By: #### GCCHLAMAMP #### [facility] , #### CUGEN #### [place] [address] USAColor of Urine by AutoOrdered By: Kassidy Arriaza on 86-24-7977Dqnrq (U)ColorlessNormalYTogus VA Medical CenterComment on above:Order Comment: Name Collection Type:: Clean-Voided MidstreamPerformed By: #### UA, CUU #### [place] [address] USAGenital Cultureon 23-65-7294Uhlzkhm CultureGenital Results Light Normal Urogenital Damián 2 Days No More GC Specimen not tested for Neisseria gonorrheae PERFORMED BY: [place] [address] PATHOLOGIST NIGHT GUARD DAMIÁN DOSHI M.D.NormalThe [facility]atham Physician GroupComment on above: Performed By: #### GCCHLAMAMP #### [facility] , #### CUGEN #### [place] [address] USAGenital specimen bacteria identification by aerobic cultureOrdered By: Kassidy Arriaza on 55-82-8314Cliwrhlm identified Aer cx Nom (Genital specimen)[facility] HospitalGlucose [Mass/volume] in Urine by Test stripOrdered By: Kassidy Arriaza on 77-34-2482Ruzwnvv Test strip (U) [Mass/Vol]Normal mg/dLNormGalion Community HospitalHemoglobin Test strip Ql (U)Ordered By: Kassidy Arriaza on 50-17-7587Klxfvzfhxd Ql (U)Negative [facility] HospitalKetones [Presence] in Urine by Test stripOrdered By: Kassidy Arriaza on 68-73-3373Jscjjgm Ql (U)TraceNormalSt. Anthony'S HospitalComment on above:Order Comment: Name Collection Type:: Clean-Voided MidstreamPerformed By: #### UA, CUU #### [facility] [address] [place] [address] USALaboratory - Microbiology and Antimicrobial susceptibility Ordered By: Kassidy Arriaza on 10-18-2024. trachomatis DNA AC+probe Ql (Unsp spec)NegativeNegOhioHealth Doctors HospitalN. gonorrhoeae DNA AC+probe Ql (Unsp spec)NegativeNegOhioHealth Doctors HospitalComment on above:Performed at: = - [facility] [id number] Director: Dagmar Love MD, Phone: [phone] esterase [Presence] in Urine by Test stripOrdered By: Kassidy Arriaza on 10-18-2024 Leukocyte esterase Test strip Ql (U)NegativeNormalOhio State East HospitalComment on above:Order Comment: Name Collection Type:: Clean- Voided MidstreamPerformed By: #### UA, CUU #### [facility] [address] [place] [address] USANitrite Test strip Ql (U)Ordered By: Kassidy Arriaza on 18-58-6032Pvqkdhw Ql (U)NegativeNegOhioHealth Doctors HospitalProtein Test strip (U) [Mass/Vol]Ordered By: Kassidy Arriaza on 72-18-0156Nlycveg (U) [Mass/Vol]NegativeNegProtestant Hospitalpecific gravity Test strip (U) [Rel density]Ordered By: Kassidy Arriaza on 04-71-6790Ojqifgdn gravity (U) [Rel density]1.0071.001-1.030Gal[facility] Community HospitalUS OB <= 14 weeks fetuson 19-58-8056NL OB <= 14 weeks [facility] [place] [address] [place], [place] [address] Ultrasound Report Signed Patient: Jaz Sanders MR#: [id number] : 1995 Acct:[id number] Age/Sex: 29 / F ADM Date: 10/18/24 Loc: ER Room: Type: [facility] ER Attending Dr: Ordering Provider: [...] Jr., DRenaeORenae 10/18/2024 2:21 PM Dictation Location: [place] [address] Tech: Natalie Haji Transcribed By: MAITE 10/18/24 1421 Dictated By: Sravan Dickinson Jr, DO 10/18/24 1419 Signed By: 10/18/24 1421NoFormerly [facility] Physician GroupUnlisted Lab Teston 10-18-2024 ProMRidgeview Medical Center SystemUrinalysison 89-12-3709Bqfehcjce,UrineNegativeNormal NegativeThe [facility]atham Physician GroupComment on above:Order Comment: Name Collection Type:: Clean-Voided MidstreamPerformed By: #### UA, CUU #### [place] [id number] USAGlucose Ql (U)NormalNormalNormCape Coral Hospital Physician GroupComment on above:Order Comment: Name Collection Type:: Clean-Voided MidstreamPerformed By: #### UA, CUU #### [place] [address] USANitrite,UrineNegativeNormalNegativeBaptist Health Wolfson Children'S Hospital Physician GroupComment on above:Order Comment: Name Collection Type:: Clean-Voided MidstreamPerformed By: #### UA, CUU #### [place] [address] USAOccult Blood,UrineNegativeNormalNegativeThe [facility] Physician GroupComment on above:Order Comment: Name Collection Type:: Clean- Voided MidstreamResult Comment: PERFORMED BY: [place] [address] PATHOLOGIST NIGHT GUARD DAMIÁN DOSHI M.D.Performed By: #### UA, CUU #### [place] [address] USAProtein,UrineNegativeNormalNegativeBaptist Health Wolfson Children'S Hospital Physician GroupComment on above:Order Comment: Name Collection Type:: Clean-Voided MidstreamPerformed By: #### UA, CUU #### [place] [address] USASpecificy [place],Urine1.185Bwlnrx2.001-1.030[facility] Physician GroupComment on above:Order Comment: Name Collection Type:: Clean- Voided MidstreamPerformed By: #### UA, CUU #### [place] [address] USAUrobilinogen,UrineNormalNormalNormalThe [facility] Physician GroupComment on above:Order Comment: Name Collection Type:: Clean- Voided MidstreamPerformed By: #### UA, CUU #### [place] [address] USAUrine Cultureon 35-68-8610Dpeqlqly identified Cx Nom (U) <9,000 colonies/ml mixed bacterial skin contaminants 2 Days PERFORMED BY: [place] [address] PATHOLOGIST NIGHT GUARD DAMIÁN DOSHI M.D.NormalBaptist Health Wolfson Children'S Hospital Physician GroupComment on above: Performed By: #### CAESAR, CUU #### [facility] [address] [place] [address] USAUrine cultureOrdered By: Kassidy Arriaza on 10-18-2024 Bacteria identified Cx Nom (U)2 DaysGalion Community Hospital Urobilinogen Test strip (U) [Mass/Vol]Ordered By: Kassidy Arriaza on 10-18-2024 Urobilinogen (U) [Mass/Vol]Normal mg/dLNormalGalion Community HospitalpH of Urine by Test stripOrdered By: Kassidy Arriaza on 72-95-1776pC (U)7.0 [pH] Normal5.0-9.0Gal[facility] Community HospitalComment on above:Order Comment: Name Collection Type:: Clean-Voided MidstreamPerformed By: #### CAESAR, CUU #### [facility] [address] [place] [address] USAUnlisted Lab Teston 21-69-9729SijOlbiqo Health SystemBOX TESTon 42-59-5254IYQ TEST SENT OUTUNITYNOSD DxkbxklqmvMHS9PXEEDJGDG Healthcare RSD92-83-06HZED HealthcareUNITY BOX CLINISYGUNNISON VALLEY HOSPITAL HealthcareCoding Summaryon 83-99-6397Ekiygu SummaryHTMLBase 64 SxxwrxaxXBh8kId+PGhlYWQ+GZ5OMHDgT40nkGJgpS4sX6XZPQvKZhpnIKDJVXkERhVscpXkSA2ujIOy ZXJu [file] b2x (more content not included)...[facility] HospitalCompliance Drug Analysis, [facility] 61-95-0029Deccljq LCFINALInvalid Interpretation [facility] HospitalComment on above:Result Comment: TOXASSURE COMP DRUG [...] test is not intended to distinguish between xygke-8-uujisrtinpajxinvtubf, the predominant form of THC in most herbal or marijuana-based products, and gvtcd-4-vydtnptzotsmsbglhnyp. Lamotrigine PRESENT Acetaminophen PRESENT Test Result Flag Units Ref Range Creatinine 45 mg/dL >=20 Declared Medications: Medication list was not provided. For clinical consultation, please call . ToxAssure, ToxAssure FLEX or MAT drug testin -Technical component - Data analysis performed at [facility], [address] [place] [phone]. [phone]. Deployment Specialist César Bains MD. ToxAssure, ToxAssure FLEX or MAT drug testing: -Technical component - Result certification performed at [facility], [address] [place] [address]. [phone] Deployment Specialist César Bains MD. Performed At: [facility] [address] [id number] Brendon Galan [facility] Ph:[phone] By: #### [id number] ####[facility] (DEFAULT)[address] [place] [address]1006S Urineon 09-28-2024 UrineMixed skin, or urogenital damián. Clinically insignificantNormalMiami Valley HospitalComment on above:Performed By: #### [id number] ####[facility] (DEFAULT)[address] [place] [address] 22385HGzYh Screen LCon 09-27-2024 HBsAg Screen LCNegativeInvalid Interpretation CodeNegativeMiami Valley Hospital Comment on above:Result Comment: Performed At: [place] [id number] [place], [place] [id number] J Luis Gray PhD Ph:[phone] By: #### 82435352, 8872866, 7505677, 29899798, 6671757728, 45135106, [id number], 04379242####[facility] (DEFAULT)[address] [place] [address] 12824CHD 4th Gen Screen w Reflex LCon 79-86-7832NLC Scr 4th Gen LCNon-ReactiveInvalid Interpretation Code Non ReactiveMiami Valley HospitalComment on above:Result Comment: HIV-1/HIV-2 antibodies and HIV-1 p24 antigen were NOT detected. There is no laboratory evidence of HIV infection. HIV Negative Performed At: [facility] [address] [place], [place] [id number] J Luis Gray PhD Ph:[phone] By: #### [id number] #### [facility] (DEFAULT) [address] [place] [address]OSB, Rfx Qn RPR/Confirm TP LCon 36-08-7129KXM LC Non-ReactiveInvalid Interpretation CodeNon ReactiveMagruder Hospital HospitalComment on above:Performed By: #### 59096641, 5886924, 5946133, 62403114, 2573502840, 45506690, 3676977542, 84871044####[facility] (DEFAULT)[address] [place] [address] 15471Lykvtue Antibodies, IgG LCon 37-97-2559Ruffewt Antibodies, IgG LC2.78 indexInvalid Interpretation CodeImmune >0.99Mtrinity [facility] HospitalComment on above:Result Comment: Non-immune <0.90 Equivocal 0.90 - 0.99 Immune >0.99 Performed At: [facility] [address] [place], [place] [id number] J Luis Gray PhD Ph:[phone] By: #### 13962582, 0819672, 5133615, 91816958, 6655575838, 35580337, 9735871857, 05812536####[facility] (DEFAULT)[address] [place] [address]402.Auto Diff 1on 90-11-2905Asge [place] %6 %Normal1-12[facility] HospitalComment on above:Performed By: #### 20869070, 8903408, 0472713, 39464327, 6306868992, 07890707, 8811021721, 64794725####[facility] (DEFAULT)[address] [place] [address] Baso Abs#0.0 d63Ltkbbc0.0-0.2[facility] HospitalComment on above:Performed By: #### 89445568, 2259164, 5080563, 61620732, 5731879767, 09891561, 6545180441, 11233547####[facility] (DEFAULT)[address] [place] [address]188 Basophils/100 WBC (Bld)0.1 %Low0.2-2.0[facility] HospitalComment on above: Performed By: #### 55076055, 6478446, 7138292, 12453593, 5404668270, 82769711, 9306056856, 12239825####[facility] (DEFAULT)[address] [place] [address] 58152Qnb Abs#0.2 v66Kflnyx3.0-0.4M[facility] HospitalComment on above: Performed By: #### 65862075, 2430108, 4301241, 10991251, 5018295078, 60481166, 0459829760, 74750611####[facility] (DEFAULT)[address] [place] [address] 38437Uhsyfrcmjaa/100 WBC (Bld)2.0 %Normal0.9-4.0[facility] Hospital Comment on above:Performed By: #### 94196820, 5830689, 0280900, 76506335, 0254057518, 65840455, 2967303684, 14502353####[facility] (DEFAULT)[address] [place] [address] 99221Drfhd Abs#2.0 g12Ekvbzw4.3-2.9[facility] HospitalComment on above:Performed By: #### 36903534, 2316953, 5536185, 51980281, 3210025984, 32211348, 1186548712, 51933084####[facility] (DEFAULT)[address] [place] [address] 60029Zvibunjqnhb/100 WBC (Bld)26 % Youlpz25-15Iwutksxh HospitalComment on above:Performed By: #### 37527983, 6567808, 2786249, 03329314, 3170295985, 17416054, 6177416105, 49565129 ####[facility] (DEFAULT)[address] [place] [address] 41278Mpsr Abs# 0.5 b48Qluzzg6.0-0.8Mi[facility] HospitalComment on above:Performed By: #### 60013616, 1822599, 1167479, 45545768, 4252498376, 10683227, 7324407797, 09732405 ####[facility] (DEFAULT)[address] [place] [address] 26621Wint Abs# 5.1 e26Wswneo3.5-9.2M[facility] HospitalComment on above:Performed By: #### 58444534, 4354169, 3596501, 99570933, 1839401677, 50117896, 7955051343, 90007766 ####[facility] (DEFAULT)[address] [place] [address] 45219 Neutrophils/100 WBC (Bld)66 %Hztmnj24-73Dpbxpcpt HospitalComment on above: Performed By: #### 68427833, 0818082, 5472957, 35586754, 1557091687, 97239489, 5659313867, 75358984####[facility] (DEFAULT)[address] [place] [address] 68402COXPwom 84-04-7123UFD and Rh group Nom (Bld)Hx Check: Not Found Anti-A: 4+ Anti-B: 0 Anti-D: 2+ DCon: NT A1: 0 B: 2+ ABORh Interp: A POSInvalid Interpretation [facility] HospitalComment on above: Performed By: #### 50315193, 9687310, 8883823, 61712661, 5421781224, 56598898, 7494098253, 97611478####[facility] (DEFAULT)[address] [place] [address] 54753HPSA Gelon 64-35-6743XLLG GelNegativeMercy Health Allen Hospital Comment on above:Performed By: #### 22730940, 0211287, 2442676, 12855563, 9077133267, 77217337, 6717521344, 55479525####[facility] (DEFAULT)[address] [place] [address] 19305RRA w/ Auto Diffon 42-66-8115Acynmfaczaa distribution width (RBC) [Ratio]13.2 %Jdtmzo36.5-15.0[facility] HospitalComment on above:Performed By: #### 39196873, 3158572, 8034952, 22876595, 8027825438, 59626772, 3657929324, 30220162#### [facility] (DEFAULT) [address] [place] [address] 94435Xzxacguqpm (Bld) [Volume fraction]39.9 %Rkqnwh24.7-40.4 [facility] HospitalComment on above:Performed By: #### 63379262, 6623427, 6408799, 12020119, 6224792771, 84122082, 7598303635, 25775818#### [facility] (DEFAULT) [address] [place] [address] 17843Lcahoenmol (Bld) [Mass/Vol]13.9 g/zWRfxgws92.3-15.9 [facility] HospitalComment on above:Performed By: #### 92184820, 3956147, 7983769, 47405307, 0471902803, 99647808, 4453008554, 62117163#### [facility] (DEFAULT) [address] [place] [address] 64535Vjv Diff?AutoInvalid Interpretation [facility] Comment on above:Performed By: #### 79305483, 7031400, 8919460, 76717137, 0313104927, 26127802, 6185486172, 81702335#### [facility] (DEFAULT) [address] [place] [address] 37057MUG (RBC) [Entitic mass]29 foVlqtel41-76Cftciwbo Hospital Comment on above:Performed By: #### 85824352, 2936195, 8007172, 23884759, 0548547488, 81893369, 8560989295, 25680989#### [facility] (DEFAULT) [address] [place] [address] 25352AAJE (RBC) [Mass/Vol]35 g/eTYscdhu55-13Olfrmjij Hospital Comment on above:Performed By: #### 65955162, 0081654, 0269023, 78994686, 6007352953, 06615249, 6246830054, 38979910#### [facility] (DEFAULT) [address] [place] [address] 90148PBE (RBC) [Entitic vol]84 xEOnhyio19-976[facility] Comment on above:Performed By: #### 81817209, 3924000, 6410713, 88316263, 9326014559, 21832215, 0646974321, 35813912#### [facility] (DEFAULT) [address] [place] [address] 82649Tzgfmtyu396 d72Vmqaeu235-078Negljixc HospitalComment on above:Performed By: #### 96912683, 4521718, 5062299, 76399424, 1373766351, 31601398, 4606978021, 43829708#### [facility] (DEFAULT) [address] [place] [address] 03371Tjgewmaq mean volume (Bld) [Entitic vol]6.3 fLNormal 6.3-10.2MTrinity Health System East CampusComment on above:Performed By: #### 42005641, 5938076, 4769092, 77852771, 6797317313, 25669099, 5974062349, 79317498#### [facility] (DEFAULT) [address] [place] [address] 11313KUQ7.76 h39Hlojnd8.70-5.30[facility] HospitalComment on above:Performed By: #### 37056830, 0519946, 2809781, 27866900, 8581152181, 95661254, 9642898503, 98062928#### [facility] (DEFAULT) [address] [place] [address] 07015HQA1.8 z83Uihqfq7.5-10.5[facility] HospitalComment on above: Performed By: #### 00359909, 8544057, 8024166, 41757379, 7554949803, 55548871, 3816361990, 88159398#### [facility] (DEFAULT) [address] [place] [address] 10704WVL surface Ag IA on 24-01-2530Iczznoeim B Surface AntigenNegativeDayton Osteopathic HospitalHIV 1+2 Ab+HIV1 p24 Ag IA Qlon 09-26-2024 HIV 1&2 AB/AGNon-ReactiveDayton Osteopathic HospitalHgbA1c Standardon 09-26-2024.Hb 13.1Invalid Interpretation [facility] HospitalComment on above:Performed By: #### 05562089, 1001063, 8740658, 35248673, 6569644519, 23187384, 0378867814, 06497851####[facility] (DEFAULT)[address] [place] [address] .Hgb A1c0.38 g/dLInvalid Interpretation [facility] HospitalComment on above: Performed By: #### 47979375, 1684867, 3781478, 91601997, 1652637364, 35031583, 9782600441, 05474122####[facility] (DEFAULT)[address] [place] [address] 20691Puedwrf [Mass/Vol]91 mg/dLInvalid Interpretation [facility] HospitalComment on above:Performed By: #### 16644697, 0812424, 5458496, 11153570, 4638481336, 75103352, 7169730802, 93832643####[facility] (DEFAULT)[address] [place] [address] 21938YiG2n (Bld) [Mass fraction]4.8 % 4.0 - 6.0 %[facility] HospitalComment on above:Performed By: #### 01477670, 7454509, 4841628, 01404832, 0723689510, 42765272, 9497511496, 29552726 ####[facility] (DEFAULT)[address] [place], [place] [address]Qy Panel Informationon 53-84-3064KbsFemrgh Stratasan SystemProvider Orderson 09-26-2024 Provider Rjkba[id number]#1.00OTGTIFFMercy Health Allen HospitalRubella IGG immune statuson 43-39-9538Qqogfsg immune IgG2.78ProUniversity Hospitals [facility] SystemT. pallidum IgG+IgM IA Ql (S)on 51-48-7614JtvknpsjLlp-Reactive ProMRidgeview Medical Center SystemType and screenon 72-61-1542Dpi/Rh(D)PositiveProJackson Medical Center TISSUELABUltrasound - Officeon 06-35-6473HjoTjyrkz Health SystemHCG ( test) Ql (U)on 90-28-9072Gznpiaeseffixu and review of laboratory resultsAbnormalNOMS HealthcarePreg Test, UrPositiveNegativeNOMS HealthcareNOMS HealthcareUS OB TRANSVAGINALon 93-00-3195VK OB TRANSVAGINALEXAM: US OB TRANSVAGINAL HISTORY: Dating, [...] II, MD, PHD at 21-Sep-2024 08:26:46 AM [facility] TeleradiologyNormalNot AvailableComment on above:Order Comment: US OB TRANSVAGINAL No LMP recorded.Urinalysis macro (dipstick) panel (U)on 62-43-4310Toimbtjgd, UA NegativeNegative - 4(70) +++ mg/dLNOMS HealthcareBlood, [...] HealthcareUrobilinogen, UA0.20.2 - 12 mg/dLNOMS HealthcareNOMS HealthcareCNNURSEon 28-46-7411JZZNRLK Nurse Visit (SHERLEYIAV) JAZ SANDERS ([id number]) 1995 F Date Time Provider Department 09/03/24 10:[address] [place] TORREYV During your visit today, we recorded the following information about you: Manisha Weaver APRN.ACCESSORIES REPAIRER 09/03/2024 5:42 PM Signed Jaz Sanders here [...] 2024 5:39 PM Referring Provider: MELODIE HERNANDEZ [[id number]] Allergies As of Date: 09/03/2024 (Not on File) Date Reviewed: 08/20/2024 Reviewed by: Melodie Hernandez APRN.CNP - Fully Assessed Visit Diagnosis:Early stage of (HCC) [Z34.90] Order(s):OBSTETRIC ULTRASOUND [facility] [[id number]] Order #: [id number]. #:[id number]: 1 Prescriptions as of 09/03/2024 - buPROPion [...] Status:Closed by BRADFORD DOSS on 09/03/24NoCleveland Clinic Marymount Hospitalamination level ultrasoundon 09-03-2024 Indication Viability, Repeat Impression - Single, live, intrauterine . - An intrauterine gestational sac with a yolk sac and pole is present. - [place] rump length measurement is consistent with the [...] Lt ovary: Visualized Performed By: Nina Farnsworth; [facility] Read By: Bradford Doss M.D.MATERNAL MEDICINEUniversity Hospitals Parma Medical CenterRadiology Study observation (narrative)[facility] Parma Medical CenterCNNURSEon 28-00-1694DLZVGSSQsrgy Visit (REIBD) JAZ SANDERS ([id number]) 1995 F Date Time Provider Department 08/28/24 11:10 AM US TECH 2 [facility] REIBD During your visit today, we recorded the following information about you: Melodie Hernandez, SOFTWARE DEVELOPER.ACCESSORIES REPAIRER 08/30/2024 4:36 PM Signed Jaz Sanders is [...] scan next week as scheduled Melodie Hernandez APRN.ACCESSORIES REPAIRER Mikey Torres MD 08/30/2024 4:36 PM Signed Viable ratliff IUP Size equal Date. Plan: patient to follow up with her ob for care. Stacy Banuelos MD Referring Provider: MELODIE HERNANDEZ [[id number]] Allergies As of Date: 08/28/2024 (Not on File) Date Reviewed: 08/20/2024 Reviewed by: Melodie Hernandez APRN.ACCESSORIES REPAIRER - Fully Assessed Visit Diagnosis: resulting from assisted reproductive technology in first trimester ([facility]) [O09.811] Order(s):OBSTETRIC ULTRASOUND [facility] [[id number]] Order #: [id number]. #:[id number]: 1 Prescriptions as of 08/30/2024 - buPROPion [...] (None) Encounter Status:Closed by MIKEY HENLEY on 08/30/24[facility] Hospitalamination level ultrasoundon 08-28-2024 Indication Viability Impression - Single, live, intrauterine . - An intrauterine gestational sac with a yolk sac and embryo is present. - [place] rump length measurement is consistent with the [...] Read By: Mikey Torres M.D.MATERNAL MEDICINEUniversity Hospitals Parma Medical Center Radiology Study observation (narrative)[facility] CenterCNPNon [id number] Telephone (REIBD) JAZ SANDERS ([id number]) 1995 F Date Time Provider Department 08/24/24 [...] Date Reviewed: 08/20/2024 Reviewed by: Melodie Hernandez, MELY.ACCESSORIES REPAIRER - Fully Assessed Reason for Visit: Patient [...] (None) Encounter Status:Closed by ARMINDA WARD on 08/24/24[facility] 10-99-6162RANVZttgonarw (REIBD) JAZ SANDERS ([id number]) 1995 F Date Time Provider Department 08/23/24 MELODIE HERNANDEZ During your visit today, we recorded the following information about you: Angella Mccarthy 08/23/2024 10:39 AM Signed Name: Jaz Sanders called today. : 1995 (home) [phone] (cell) Reason for call: pt called today informing the nurse she has been experiencing pain of level 4 from 1-10. Pt has been experiencing pain for 2 day. 5 weeks today. The patients preferred pharmacy has been captured for this encounter? Angella Morillo Inspector [employer] David, Melodie Keene APRN.CNP 08/24/2024 5:58 PM [...] slot. Call to patient needed: no Morillo Inspector [employer]z, Lana 08/25/2024 8:37 AM Signed Pt is scheduled on 09/03/2024. Melodie Hernandez APRN.CNP 08/27/2024 11:51 AM Signed Addended by: MELODIE HERNANDEZ on: 08/27/2024 11:51 AM Modules accepted: Orders Allergies As of Date: 08/23/2024 (Not on File) Date Reviewed: 08/20/2024 Reviewed by: Melodie Hernandez APRN.CNP - Fully Assessed Reason for Visit: Pain [78] Primary Visit Diagnosis:Early stage of (HCC) [Z34.90] Order(s):OBSTETRIC ULTRASOUND [facility] [[id number]] Order #: [id number]: 1 FUTURE Prescriptions as of 08/27/2024 - [...] MELODIE HERNANDEZ on 08/24/24[facility] Summaryon 77-33-0567Ewdlcm SummaryMLBase 64 WjhgalgwRLr5aMx+PGhlYWQ+CI0XTPZmB67esIAfgU3fW4SZLFqYNrtqPGLAZNfRXyFzvaPdHJ0ueWYj ZXJu [file] b2x (more content not included)...[facility] HospitalCoding Summaryon 61-09-3736Fmuorl SummaryHTMLBase 64 NkdtayuzHYe1fRh+PGhlYWQ+JT3VQKPiE74pdPUkpA7cX4NMIOvPOoodHRHOOReAWvLvvfYnKW0hnLIh ZXJu [file] b2x (more content not included)...[facility] HospitalCoding SummaryMLBase 64 XzpttyysGWp7kGm+PGhlYWQ+OE7CSWFoH12dbTChmW4iC7SGVUiYNrapQEXWIUeVJjWtjhTeQM1msKSr ZXJu [file] b2x (more content not included)...[facility] HospitalProvider Orderson 71-60-9741Nlembdcs [id number]#1.00OTGTIFF [facility] HospitalhCG Quantitativeon 13-74-8908cTZ Hvmqwwosgprj242.7 mIU/mL High0.0-0.6MTrinity Health System East CampusComment on above:Result Comment: Post-Menopausal Reference Range is: 0.1-11.6 mIU/mLPerformed By: #### [id number] #### [facility] (DEFAULT) [address] [place] [address] 74217IAUJmg 74-16-9226KWLLWyvymrtqc (REIBD) JAZ SANDERS ([id number]) 1995 F Date Time Provider Department 08/16/24 MELODIE HERNANDEZ During your visit today, we recorded the following information about you: Angella Mccarthy 08/16/2024 12:31 PM Signed Name: Jaz Lynda called today. : 1995 (home) [phone] (cell) Reason for call: pt called that she got positive test, she has been having having cramping since last night , it happens every hours for couple minutes. The patients preferred pharmacy has been captured for this encounter? yes Angella Morillo Inspector [employer]z Daniel Hanna APRN.CNP 08/16/2024 5:28 PM Signed Called patient back to phone number listed in [facility]-no answer. Lm for patient to look out for [employer] message. Daniel Hanna APRN.JARROD August 16, 2024 [...] Text Encounter Status:Closed by DANIEL HANNA on 08/16/24[facility] HospitalSabra [id number] (REIBD) JAZ SANDERS ([id number]) 1995 F Date Time Provider Department 08/15/24 [...] Date Reviewed: 05/09/2024 Reviewed by: Melodie Hernandez, SOFTWARE DEVELOPER.ACCESSORIES REPAIRER - Fully Assessed Reason for Visit: Patient [...] (None) Encounter Status:Closed by MELODIE HERNANDEZ on 08/15/24[facility] CenterProvider Orderson 36-36-7816Fedkfvls Orders [id number]#1.00OTGTSelect Medical Specialty Hospital - Cincinnati NorthhCG Quantitativeon 72-76-3727kGB Bxuhabvzavyr186.6 mIU/mLHigh0.0-0.6MTrinity Health System East CampusComment on above:Result Comment: Post-Menopausal Reference Range is: 0.1-11.6 mIU/mLPerformed By: #### [id number] #### [facility] (DEFAULT) [address] [place] [address] 63004ORURif 06-01-9913KRSWAdmiueuwt (REIBD) JAZ SANDERS ([id number]) 1995 F Date Time Provider Department 08/13/24 MELODIE HERNANDEZ During your visit today, we recorded the following information about you: Arminda Ward RN 08/13/2024 11:19 AM Signed Letters sent. sent to patient Arminda Ward RN August 13, 2024 11:19 AM Allergies As of Date: 08/13/2024 (Not on File) Date Reviewed: 05/09/2024 Reviewed by: Melodie Hernandez, SOFTWARE DEVELOPER.ACCESSORIES REPAIRER - Fully Assessed Reason for Visit: Wants hcg levels sent to [facility] / lives far away [Other] Prescriptions [...] Text Encounter Status:Closed by ARMINDA WARD on 08/13/24[facility] CenterProvider Orderson 63-40-0767Cvuwasdx Orders [id number]#1.00OTPomerene HospitalhCG Quantitativeon 10-70-1789sSQ Qsarepfsfusb34.6 mIU/mLSt. Joseph'S Hospital0.0-0.6MTrinity Health System East Campus Comment on above:Result Comment: Post-Menopausal Reference Range is: 0.1-11.6 mIU/mLPerformed By: #### [id number] #### [facility] (DEFAULT) [address] [place] [address] 15762LSNMbw 05-77-6782NODQGrwica Visit (REIBD) JAZ SANDERS ([id number]) 1995 F Date Time Provider Department 07/31/24 3:00 PM MELODIE HERNANDEZ REARLET During your visit today, we recorded the following information about you: Last Period 07/19/24 Mustapha Tello MA 07/31/2024 3:12 PM Addendum Patient verified by full name and date of . Jaz Sanders is here today for an IUI. LMP: 07/19/2024 Natural cycle IUI Timed With: Ovulation Predictor Kit , Date: 07/30/2024 Livestock Trucker offered: Patient declines Mustapha Tello MA July 31, 2024 3:12 PM Dominguez Barry 09/05/2024 10:45 PM Signed IUI specimen released to provider Dominguez Barry July 31, 2024 3:24 PM Dominguez Barry 09/05/2024 10:45 PM Signed IUI Cryobio Donor # [id number] Pre: frozen washed specimen Post: 82 M/ml, [...] 3. Cycle Day: Last menstrual period: 07/19/2024 Eldridge Protocol: UNIVERSAL PROTOCOL / SAFETY CHECKLIST Procedure [...] (None) Encounter Status:Closed by MELODIE HERNANDEZ on 09/05/24[facility] HospitalOVOffice Visit (ANDRBE) JAZ SANDERS ([id number]) 1995 F Date Time Provider Department 07/31/24 2:30 PM [facility]OLOGY TRADE [facility] During your visit today, we recorded the following information about you: Dominguez Barry 07/31/2024 3:26 PM Signed Thaw for IUI. Dominguez Barry Referring Provider: SELF [[id number]] Allergies As of Date: 07/31/2024 (Not on File) Date Reviewed: 05/09/2024 Reviewed by: Melodie Hernandez, SOFTWARE DEVELOPER.ACCESSORIES REPAIRER - Fully Assessed Primary Visit Diagnosis:Procreative management [...] (None) Encounter Status:Closed by DOMINGUEZ BARRY on 07/31/24[facility] CenterCNPNon 17-57-9279LIQCNoxiybckh (REIBD) JAZ SANDERS ([id number]) 1995 F Date Time Provider Department 07/30/24 MELODIE HERNANDEZ During your visit today, we recorded the following information about you: Sathyamanisha Manisha 07/30/2024 3:16 PM Signed N- ivf Pt has questions regarding IUI Melodie Hernandez APRN.CNP 07/30/2024 6:00 PM Signed patient's OPK today was dark but not positive Plan: test again tomorrow. if darker, schedule IUI on Tuesday if a r collections rep than today, schedule IUI the same day Melodie Hernandez APRN.CNP July 30, 2024 6:00 PM Allergies As of Date: 07/30/2024 (Not on File) Date Reviewed: 05/09/2024 Reviewed by: Melodie Hernandez APRN.CNP - Fully Assessed Reason for Visit: Patient Question [2537] Prescriptions as of 07/30/2024 - naltrexone 50 [...] (None) Encounter Status:Closed by MELODIE HERNANDEZ on 07/30/24[facility] Centermanisha 27-32-0053NRCPEqfrdx Visit (REIBD) JAZ SANDERS ([id number]) 1995 F Date Time Provider Department 07/07/24 [...] Cycle Day: 14 Last menstrual period: 06/24/2024 Eldridge Protocol: UNIVERSAL PROTOCOL / SAFETY CHECKLIST Procedure [...] Gonzalez 07/19/2024 7:50 AM Signed IUI Cryobio #[id number] Washed frozen specimen Post: 31 m/ml, 77% Insem#: 10.8 million Referring Provider: DANIEL HANNA [[id number]] Allergies As of Date: 07/07/2024 (Not on File) Date Reviewed: 05/09/2024 Reviewed by: Melodie Hernandez APRN.ACCESSORIES REPAIRER - Fully Assessed Primary Visit Diagnosis:Encounter for [...] (None) Encounter Status:Closed by MIKEY HENLEY on 07/19/24[facility] (ANDRBE) JAZ SANDERS ([id number]) 1995 F Date Time Provider Department 07/07/24 9:30 AM [facility] During your visit today, we recorded the following information about you: Nichelle Gonzalez 07/07/2024 9:41 AM Signed Thaw for IUI Nichelle Gonzalez Referring Provider: DANIEL HANNA [[id number]] Allergies As of Date: 07/07/2024 (Not on File) Date Reviewed: 05/09/2024 Reviewed by: Melodie Hernandez APRN.ACCESSORIES REPAIRER - Fully Assessed Primary Visit Diagnosis:Procreative management [...] (None) Encounter Status:Closed by NICHELLE GONZALEZ on 07/07/24[facility] HospitalSabra 74-60-1138LTCWXxbyusjxg (REIBD) JAZ SANDERS ([id number]) 1995 F Date Time Provider Department 07/06/24 [...] Date Reviewed: 05/09/2024 Reviewed by: Meldoie Hernandez APRN.ACCESSORIES REPAIRER - Fully Assessed Reason for Visit: Patient [...] (None) Encounter Status:Closed by BECKI ISAACS on 07/06/24[facility] CenterXavier 68-65-7798LWAPWphjopmqe (REIBD) JAZ SANDERS ([id number]) 1995 F Date Time Provider Department 07/05/24 [...] Date Reviewed: 05/09/2024 Reviewed by: Melodie Hernandez APRN.ACCESSORIES REPAIRER - Fully Assessed Reason for Visit: re [...] (None) Encounter Status:Closed by ARMINDA WARD on 07/06/24[facility] 60-40-0128ERMAFndkqniog (REIBD) JAZ SANDERS ([id number]) 1995 F Date Time Provider Department 07/04/24 [...] Signed Ignacio Guy MD to Jamel Skylar Radford 07/05/24 9:05 AM Cervicalpolyp does not need [...] (None) Encounter Status:Closed by MELODIE HERNANDEZ on 07/04/24[facility] 07-04[facility]2024 Indication infertility testing [...] Read By: Ignacio Guy M.D.MATERNAL MEDICINEUniversity Hospitals Parma Medical CenterRadiology Study observation (narrative)[facility] CenterCNPNon 86-54-5790JDSALmttvqjbn (REIBD) JAZ SANDERS ([id number]) 1995 F Date Time Provider Department 06/29/24 [...] us before iui this weekend Melodie Hernandez APRN.ACCESSORIES REPAIRER 07/03/2024 12:34 PM Signed unable to reach, left message to return my call Melodie Hernandez APRN.ACCESSORIES REPAIRER July 03, 2024 12:33 PM Patricia Snow 08/13/2024 8:52 AM Signed Pos preg test Arminda Ward RN 08/13/2024 9:17 AM Signed See TE encounter dated 08/13 Arminda Ward RN August 13, 2024 9:16 AM Allergies As of Date: 06/29/2024 (Not on File) Date Reviewed: 05/09/2024 Reviewed by: Melodie Hernandez APRN.ACCESSORIES REPAIRER - Fully Assessed Reason for Visit: 06/09 [...] (None) Encounter Status:Closed by ARMINDA WARD on 08/13/24[facility] 23-74-7486WXQYQjkgfv Visit (REIBD) JAZ SANDERS ([id number]) 1995 F Date Time Provider Department 06/09/24 11:00 AM IGNACIO GUY During your visit today, we recorded the following information about you: Nichelle Gonzalez 06/09/2024 12:30 PM Signed IUI specimen released to provider Nichelle Gonzalez June 09, 2024 11:24 AM Nichelle Gonzalez 06/09/2024 12:30 PM Signed IUI Cryobio #: [id number] Washed frozen sample Post: 42 m/ml, 74% [...] Cycle Day: 13 Last menstrual period: 05/28/2024 Eldridge Protocol: UNIVERSAL PROTOCOL / SAFETY CHECKLIST Procedure [...] was discussed with the patient or authorized claims representative. The patient or authorized claims representative has agreed to proceed with the sensitive examination. 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 Vidhi Sheldon MD IUI IUI Date: [...] stopped. Will get pelivc scan here at [facility] if not with this IUI prior pt proceeding with another attmept at IUI. Ignacio Guy MD June 09, 2024 12:30 PM SIGNATURE: Vidhi Sheldon MD PATIENT NAME: Jaz Sanders DATE: June 09, 2024 TIME: 12:01 PM Referring Provider: DANIEL HANNA [[id number]] Allergies As of Date: 06/09/2024 (Not on File) Date Reviewed: 05/09/2024 Reviewed by: Melodie Hernandez APRN.ACCESSORIES REPAIRER - Fully Assessed Primary Visit Diagnosis:Female infertility [...] (None) Encounter Status:Closed by IGNACIO GUY on 06/09/24[facility] Visit (ANDRBE) JAZ SANDERS ([id number]) 1995 F Date Time Provider Department 06/09/24 10:30 AM [facility]OLOGY TRADE MARK [facility] During your visit today, we recorded the following information about you: Nichelle Gonzalez 06/09/2024 11:48 AM Signed Thaw for IUI Nichelle Gonzalez Referring Provider: DANIEL HANNA [[id number]] Allergies As of Date: 06/09/2024 (Not on File) Date Reviewed: 05/09/2024 Reviewed by: Melodie Hernandez APRN.ACCESSORIES REPAIRER - Fully Assessed Primary Visit Diagnosis:Procreative management [...] NICHELLE GONZALEZ on 06/09/24[facility] Summaryon 53-69-6171Fkcjyv SummaryMOUNTAIN VIEW HOSPITALBase 64 OfyntdllBCe2zEw+PGhlYWQ+SE2LHMZhV51olZJltM4zD6TDYPsDWkrgYOHILBiZVkLlrjOdUJ8qoKNb ZXJu [file] b2x (more content not included)...[facility] HospitalProgesterone LCon 51-34-1915Vggsminfnsly LC7.6 ng/mLInvalid Interpretation [facility] Comment on above:Result Comment: Follicular phase 0.1 - 0.9 Luteal phase 1.8 - 23.9 Ovulation phase 0.1 - 12.0 First trimester 11.0 - 44.3 Second trimester 25.4 - 83.3 Third trimester 58.7 - 214.0 Postmenopausal 0.0 - 0.1 Performed At: [facility] [address], [place] [id number] J Luis Gray PhD Ph:[phone] By: #### [id number] ####[facility] (DEFAULT)[address] [place] [address] 63477Akyprttt Orderson 67-45-7888Iqjumpem [id number]#1.00OTMarion HospitalPhysical Therapy Noteon 95-45-4695Wupcgxxm Therapy Note [id number]#1.00OTPomerene Hospital 25([place])D3 [facility] Centeron 556166-scgbkoataxnuhh D3 [Mass/Vol]28.8 ng/mLLow 31.0-80.0Av HospitalComment on above:Order Comment: Specimen Type: BLOOD SPECIMEN Ordering Facility: [facility] Address: [address] [place], [place] [address]Result Comment: Classification of 25 [place] Vitamin D status: Deficiency/Insufficiency: < or = 30 ng/ml. Sufficiency/Optimal Levels: 31-80 ng/mL Toxicity: > 100 ng/mL. Test performed by chemiluminescent immunoassay.Performed By: #### 70299-6 #### [facility] CLIA [id number] [address] [place] [address] [place] ADAMS COUNTY HOSPITALC. trachomatis+N. gonorrhoeae DNA AC+probe Ql (Unsp spec)on 04-02-2024. trachomatis rRNA AC+probe Ql (Unsp spec)Not detectedNormalNot detectedAv HospitalComment on above:Order Comment: Specimen Type: BLOOD SPECIMEN Ordering Facility: [facility] Address: [address] [place], [place] [address]Performed By: #### 62939-0 #### [facility] CLIA [id number] [address] [place] [address] [place]. gonorrhoeae rRNA AC+probe Ql (Unsp spec)Not detectedNormalNot detectedAv HospitalComment on above:Order Comment: Specimen Type: BLOOD SPECIMEN Ordering Facility: [facility] Address: [address] [place], [place] [address]Performed By: #### 70317-2 #### [facility] CLIA [id number] [address] [place] [address] [place] AMERICACARRIER SCREEN, EXPANDEDon 32-22-0575VHBLEGH SCREEN RESULTSView results in Scanned Documents link when available.NormalAv HospitalComment on above:Order Comment: Specimen Type: BLOOD SPECIMEN Ordering Facility: [facility] Address: [address] [place], [place] [address]Performed By: #### 11744-6 #### [facility] CLIA [id number] [address] [place] [address] [place] AMERICACMV IgG Qnon 56-62-7736TOO IGG QUALNegativeNormalNegativeAv HospitalComment on above:Order Comment: Specimen Type: BLOOD SPECIMEN Ordering Facility: [facility] Address: [address] [place], [place] [address]Result Comment: No serological evidence of past exposure to Cytomegalovirus. Cannot exclude recent infection if the specimen collected within 4-6 weeks after infection.Performed By: #### 1989-3RIO, 7852-7, 7853-5, VZVG2 #### [facility] CLIA [id number] [address] [place] [address] [place] AMERICACMV IgG SerPl-aCncon 30-16-3834FCY IgG Qn<0.20NormalAvon HospitalComment on above:Order Comment: Specimen Type: BLOOD SPECIMEN Ordering Facility: [facility] Address: [address] [place], [place] [address]Result Comment: The magnitude of the measured result is not indicative of the amount of antibody present. U/mL values are interpreted as follows: Negative <0.6 Equivocal 0.6 to <0.70 Positive >=0.70Performed By: #### 1989-3RIO, 7852-7, 7853-5, VZVG2 #### [facility] CLIA [id number] [address] [place] [address] [place] AMERICACMV IgM Qnon 33-67-4342YRV IGM, QUALNegativeNormalNegativeAvon HospitalComment on above:Order Comment: Specimen Type: BLOOD SPECIMEN Ordering Facility: [facility] Address: [address] [place], [place] [address]Result Comment: No serological evidence of recent exposure to Cytomegalovirus.Performed By: #### 1989-3, RUBIGG, 7852-7, 7853-5, VZVG2 #### [facility] CLIA [id number] [address] [place] [address] [place] AMERICAHBV core Ab Ser Qlon 53-77-3241XJP core Ab Ql (S)NegativeNormalNegativeAvon HospitalComment on above: Order Comment: Specimen Type: BLOOD SPECIMEN Ordering Facility: [facility] Address: [address] [place], [place] [address]Result Comment: No evidence of current or past infection with Hepatitis B virus. Should recent infection be suspected, repeat testing may be considered 3-4 weeks after this draw.Performed By: #### 94023-9, 5195-3, 17666-6, 23812-7 #### [facility] CLIA [id number] [address] [place] [address] [place] AMERICAHBV surface Ag Ser Qlon 90-67-4752XTS surface Ag Ql (S)NegativeNormalNegativeAvon HospitalComment on above:Order Comment: Specimen Type: BLOOD SPECIMEN Ordering Facility: [facility] Address: [address] [place], [place] [address]Performed By: #### 05699-5, 5195-3, 75008-8, 03608-9 #### [facility] CLIA [id number] [address] [place] [address] [place] AMERICAHCV Ab Ser Qlon 04-02-2024 HCV Ab Ql (S)NegativeNormalNegativeAvon HospitalComment on above:Order Comment: Specimen Type: BLOOD SPECIMEN Ordering Facility: [facility] Address: [address] [place], [place] [address]Result Comment: The result suggests no evidence of active infection with Hepatitis C virus. Should recent infection be suspected, repeat testing may be considered 4-6 weeks after this draw. Performed By: #### 97845-0 #### [facility] CLIA [id number] [address] [place] [address] [place] AMERICAHIV 1+2 Ab IA Qlon 50-37-3794SZT 1 and 2 Ab IA.rapid Nom (S/P/Bld)NormalKane County Human Resource SsdComment on above:Order Comment: Specimen Type: BLOOD SPECIMEN Ordering Facility: [facility] Address: [address] [place], [place] [address]Result Comment: Test not indicated. Performed By: #### 67204-2, 5195-3, 25439-8, 59881-2 #### [facility] CLIA [id number] [address] [place] [address] STATES OF AMERICAHIV 1+2 Ab+HIV1 p24 Ag IA Ql Non-ReactiveNormalNonreactiveKane County Human Resource SsdComment on above:Order Comment: Specimen Type: BLOOD SPECIMEN Ordering Facility: [facility] Address: [address] [place], [place] [address]Performed By: #### 98351-0, 5195-3, 90707-9, 64583-8 #### [facility] CLIA [id number] [address] [place] [address] STATES OF AMERICAHIV immunoassay testing algorithm interpretation (S/P/Bld) [Interp][facility]H HospitalComment on above: Order Comment: Specimen Type: BLOOD SPECIMEN Ordering Facility: [facility] Address: [address] [place], [place] [address]Result Comment: No evidence of HIV- 1 or [...] HIV test results or diagnoses.Performed By: #### 24605-3, 5195-3, 11075-8, 15112-8 #### [facility] CLIA [id number] [address] [place] [address] [place] MHRTODNUgJ9z (Bld)on 04-02-2024 Average glucose Estimated from glycated hemoglobin (Bld) [Mass/Vol]85 mg/dL NormalAv HospitalComment on above:Order Comment: Specimen Type: BLOOD SPECIMEN Ordering Facility: [facility] Address: [address] [place], [place] [address]Result Comment: eAG: (Estimated average glucose) is a calculated value from HgbA1c and is claims representative of the average blood glucose level in the last 2-3 month period.Performed By: #### 47047-0 #### [facility] CLIA [id number] [address] [place] [address] [place] ZYTRANZMiW6m (Bld) [Mass fraction] 4.6 %Normal4.3-5.6Avon HospitalComment on above:Order Comment: Specimen Type: BLOOD SPECIMEN Ordering Facility: [facility] Address: [address] [place], [place] [address]Result Comment: [place] [employer] guidelines indicate that patients with HgbA1c in the range 5.7-6.4% are at increased risk for development of diabetes, and intervention by lifestyle modification may be beneficial. HgbA1c greater or equal to 6.5% is considered diagnostic of diabetes.Performed By: #### 19756-9 #### [facility] CLIA [id number] [address] [place], [place] [address] [place] OF AMERICARUBELLA IGG ANTIBODYon 65-23-3174MCHDRCH IGG AB, QUALPositiveNormalPositiveAv HospitalComment on above:Order Comment: Specimen Type: BLOOD SPECIMEN Ordering Facility: [facility] Address: [address] [place], [place] [address]Result Comment: The result suggests recent or past exposure to Rubella virus or history of Rubella vaccination. Positive result may also be seen due to presence of passively-transferred antibodies. Please correlate with patient's history.Performed By: #### 1989-3, RUBIGG, 7852-7, 7853-5, VZVG2 #### [facility] CLIA [id number] [address] [place] [address] [place] AMERICAReagin and Treponema pallidum IgG and IgM [Interp]on 04-02-2024T. pallidum IgG+IgM IA Ql (S) Non-ReactiveNormalNonreactiveKane County Human Resource SsdComment on above:Order Comment: Specimen Type: BLOOD SPECIMEN Ordering Facility: [facility] Address: [address] [place], [place] [address]Performed By: #### 15916-9, 5195-3, 27740-8, 61807-8 #### [facility] CLIA [id number] [address] [place] [address] [place] AMERICAReagin+T pallidum IgG+IgM SerPl-Impon 89-52-5508Luwdkq and Treponema pallidum IgG and IgM [Interp]Cannot exclude recent Treponemal infection if specimen collected within 7-10 days after appearance of suspect lesions or 2-3 weeks after an exposure. Clinical correlation is required.NormalEwing HospitalComment on above:Order Comment: Specimen Type: BLOOD SPECIMEN Ordering Facility: [facility] Address: [address] [place], [place] [address]Performed By: #### 06366-1, 5195-3, 19841-0, 00181-3 #### [facility] CLIA [id number] [address] [place] [id number] [place] STATES OF AMERICATYPE + SCREEN PRENATALon 46-03-5061FYYRYmnllvCamm HospitalComment on above:Order Comment: Specimen Type: BLOOD SPECIMEN Ordering Facility: [facility] Address: [address] [place], [place] [address]Performed By: #### TSPN #### [facility] [place] [id number] [address] [place] [address] [facility]ITALRh Nom (Bld)[facility] Comment on above:Order Comment: Specimen Type: BLOOD SPECIMEN Ordering Facility: [facility] Address: [address] [place], [place] [address]Performed By: #### TSPN #### [facility] [place] [id number] [place] [address] [facility] HOSPITALTYPE AND SCREEN AZNIFJRGDP64/19/2024 23:59[facility] HospitalComment on above:Order Comment: Specimen Type: BLOOD SPECIMEN Ordering Facility: [facility] Address: [address] [place], [place] [address]Performed By: #### TSPN #### [facility] [id number] [place] [address] [place] MARINE HOSPITALVARICELLA ZOSTER IGGon 04-02-2024 VARICELLA ZOSTER IGG, QUALPositiveNormalPositiveEwing HospitalComment on above: Order Comment: Specimen Type: BLOOD SPECIMEN Ordering Facility: [facility] Address: [address] [place], [place] [address]Result Comment: The result suggests recent or past exposure to Varicella-Zoster virus or chickenpoxvaccination or zoster vaccination. Positive result may also be seen due to presence of passively-transferred antibodies. Please correlate with patient's history. Performed By: #### [id number] #### [facility] CLIA [id number] [address] [place] [address] STATES OF AMERICACoding Summaryon 03-20-2024 Coding SummaryMLBase 64 CtuywgzbVBp3pUu+PGhlYWQ+ZQ8CTENxN74qlBFyuM3yD5RHVPjJYrsyTCDHQDpSEjLnkyOaXB5xpATf ZXJu [file] JSc (more content not included)...[facility] HospitalProvider Orderson 14-17-3810Omfokzmo [id number]#1.00OTGTIFF [facility].Auto Diff 1on 64-10-4505Gylq [place] %3 %Normal1-12Magrtrumbull [facility] center HospitalComment on above:Performed By: #### [id number], [id number], [id number] #### [facility] (DEFAULT) [address] [place] [address] 36293Cqzv Abs#0.0 u69Uzljzv6.0-0.2[facility] HospitalComment on above:Performed By: #### [id number], [id number], [id number] #### [facility] (DEFAULT) [address] [place] [address] 03786Iagoujoci/100 WBC (Bld)0.3 %Normal0.2-2.0[facility] Comment on above:Performed By: #### [id number], 5480511, [id number] #### [facility] (DEFAULT) [address] [place] [address] 82284Mcd Abs#0.0 m99Mypfle6.0-0.4[facility] HospitalComment on above:Performed By: #### [id number], [id number], [id number] #### [facility] (DEFAULT) [address] [place] [address] 61336Uzpexkhhcnk/100 WBC (Bld)0.1 %Low0.9-4.0[facility] Comment on above:Performed By: #### [id number], [id number], [id number] #### [facility] (DEFAULT) [address] [place] [address] 06955Xjudg Abs#1.5 d60Kwfqxq4.3-2.9[facility] HospitalComment on above:Performed By: #### [id number], [id number], [id number] #### [facility] (DEFAULT) [address] [place] [address] 13106Vfbjqjeuhzf/100 WBC (Bld)16 %Fvtzxj40-70Kfgbppex Hospital Comment on above:Performed By: #### [id number], 2903902, 9672988 #### [facility] (DEFAULT) [address] [place] [address] 39282Lemw Abs#0.3 k98Fmirla0.0-0.8[facility] HospitalComment on above:Performed By: #### [id number], 0552589, 4977152 #### [facility] (DEFAULT) [address] [place] [address] 60062Kvei Abs#7.8 k40Wrdyuy1.5-9.2[facility] HospitalComment on above:Performed By: #### [id number], 5457365, 3177608 #### [facility] (DEFAULT) [address] [place] [address] 07924Tcjyolvplyu/100 WBC (Bld)81 %Ogdohe91-57Hunfcbnr Hospital Comment on above:Performed By: #### [id number], 4290471, 4191309 #### [facility] (DEFAULT) [address] [place] [address] 17648BLD w/ Auto Diffon 94-31-4129Xtjlvzfwanj distribution width (RBC) [Ratio]13.9 %Obfwmz47.5-15.0[facility] HospitalComment on above: Performed By: #### [id number], 4130215, 1908741 #### [facility] (DEFAULT) [address] [place] [address] 20257Sizbxqaxuy (Bld) [Volume fraction]45.3 %High33.7-40.4 [facility] HospitalComment on above:Performed By: #### [id number], 6415475, 7433485 #### [facility] (DEFAULT) [address] [place] [address] 29820Ixqmnidhas (Bld) [Mass/Vol]15.5 g/wQJshvek67.3-15.9 [facility] HospitalComment on above:Performed By: #### [id number], 4277010, 8698560 #### [facility] (DEFAULT) [address] [place] [address] 679[address]Mhy Diff?AutoInvalid Interpretation CodeMiami Valley Hospital Comment on above:Performed By: #### [id number], [id number], 8147629 #### [facility] (DEFAULT) [address] [place] [address] 25188HHE (RBC) [Entitic mass]29 jzEfofhh60-70Lwmmwues Hospital Comment on above:Performed By: #### [id number], 6941300, 4127910 #### [facility] (DEFAULT) [address] [place] [address] 21059CZQA (RBC) [Mass/Vol]34 g/pCOqxzxt89-78Qzijsdno Hospital Comment on above:Performed By: #### [id number], 7715309, 0285722 #### [facility] (DEFAULT) [address] [place] [address] 20721PVM (RBC) [Entitic vol]86 rBPxloyx85-163Ygxgwhge Hospital Comment on above:Performed By: #### [id number], 5297774, 9496618 #### [facility] (DEFAULT) [address] [place] [address] 06918Esxajlgc811 a75Yomrfa531-933Szmcttgk HospitalComment on above:Performed By: #### [id number], 5409208, 9951614 #### [facility] (DEFAULT) [address] [place] [address] 48154Nznojmkj mean volume (Bld) [Entitic vol]6.8 fLNormal 6.3-10.2[facility] HospitalComment on above:Performed By: #### [id number], 4534884, 1765719 #### [facility] (DEFAULT) [address] [place] [address] 22201HQE2.28 a05Ywsnto8.70-5.30[facility] HospitalComment on above:Performed By: #### [id number], 7797889, 0067547 #### [facility] (DEFAULT) [address] [place] [address] 40931KPK9.6 v36Bgcxaz6.5-10.5[facility] HospitalComment on above: Performed By: #### [id number], 7305520, 9089883 #### [facility] (DEFAULT) [address] [place] [address] 04345Wnctnsnyce 37-79-0249Iuhhijvk [Mass/Vol]20.6 ng/mLNormal 12.0-150.0[facility] HospitalComment on above:Performed By: #### [id number], 4091797, 5784124 #### [facility] [address] [place] [address] 35527Ruwb Levelon 26-71-2974Bkza [Mass/Vol]61.0 ug/dLNormal 28.0-170.0[facility] HospitalComment on above:Performed By: #### [id number] ####[facility] (DEFAULT)[address] [place] [id number] ID: [id number] Author: IGNACIO GUY MD Service: ? Author [...] for three cycles. They will meet with FRENCH DRAWER to review the IUI checklist and sign consents. I spent a total of 45 minutes on the date of the service which included preparing to see the patient, ilsp-eo-wuxx patient care, completing clinical documentation, counseling and educating the patient/family/caregiver, and ordering medications, tests, or procedures. 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 They will meet with FRENCH DRAWER to review the IUI checklist and sign consents. I spent a total of 45 minutes on the date of the service which included preparing to see the patient, yfhu-fm-hihu patient care, com (more content not included)...NormalTuscarawas HospitalP,APTIMA HPV,AGE GDLNon 02-28[birth year]24 AGE GDLN ACOG TESTINGNote.NOMS HealthcareComment on above:TESTS RESULT FLAG UNITS REF RANGE LAB Clinician Provided Cytology Information Source.............Cervix;Endocervix No. of containers..01 ThinPrep Vial Age Algo ACOG Ezequiel... 01 FLAG LEGEND: L-Low Normal,H-High Normal,LL-Alert Low,HH-Alert High <-Panic Low,>-Panic High,A-Abnormal,AA-Critical Abnormal Performed at: 01 =G [facility] [place] [address] Dagmar Love MD, IGP, RFX APTIMA HPV ASCUNote.NOMS HealthcareComment on above:TESTS RESULT FLAG UNITS REF RANGE LAB DIAGNOSIS: 02 NEGATIVE FOR INTRAEPITHELIAL LESION OR MALIGNANCY. Specimen adequacy: 02 Satisfactory for evaluation. Endocervical and/or squamous metaplastic cells (endocervical component) are present. Performed by: 02 Edel Sewell, Drafter Geological ([facility]) . 02 Note: Note [...] High,A-Abnormal,AA-Critical Abnormal Performed at: 02 [facility] [address] [place] [address] Dagmar Love MD, Performed at: =G - [facility] [address], [place] [id number] Deployment Specialist: Dagmar Love MD, Phone: [phone] Performed at: - [address] [id number] Deployment Specialist: Dagmar Love MD, Phone: [phone] BRUSH-SPATULA CERVIX ENDOCERVIX [facility] Hospital[facility] Summaryon 93-84-1259Temdmi SummaryMLBase 64 VtgvwjuzJPt5dXd+PGhlYWQ+YE5JNJLqK90jtKPnkC8tU4KKVClQXmkqUBZFGZkRNlXayvBnWZ1plJHc ZXJu [file] [facility] (more content not included)...[facility] papilloma virus 16+18+31+33+35+39+45+51+52+56+58+59+66+68 DNA [Presence] in Addi 30-60-8161ZGP 16+18+31+33+35+39+45+51+52+56+58+59+66+68 DNA Probe+sig amp Ql (Cvx)Human papilloma virus 16+18+31+33+35+39+45+51+52+56+58+59+66+68 DNA [Presence] in Cer. [facility] HospitalComment on above:TESTS RESULT FLAG UNITS REF RANGE LAB DIAGNOSIS: 02 NEGATIVE FOR INTRAEPITHELIAL LESION OR MALIGNANCY.Specimen adequacy: 02 Satisfactory forevaluation. Endocervical and/or squamous metaplastic cells (endocervical component) are present.Performed by: 02 Edel Sewell, Drafter Geological ([facility]). 02Note: Note 02 The [...] <-Panic Low,>- Panic High,A-Abnormal,AA-Critical Abnormal Performed at:[address] [address] Dagmar Love MD, Igtqrlfzy at: = - [facility] [id number] Director: Dagmar Love MD, Phone: [phone] at: [facility] [address] [id number] Director: Dagmar Love MD, Phone: [phone] Panel Informationon 61-37-7845Qewbgmcxx Lab Test Patient AgeNotcolt.[facility] HospitalComment on above:TESTS RESULT FLAG UNITS REF RANGE LAB Clinician Provided Cytology Information Source.............Cervix;Endocervix No. of containers..01 ThinPrep VialAge Olafo HUMAOG Ezequiel... FLAG LEGEND: L-Low Normal,H-High Normal,LL-Alert Low,HH-Alert High <-Panic Low,>-Panic High,A- Abnormal,AA-Critical Abnormal Performed a t:01 =G [address] [address] Dagmar Love MD, .Auto Diff 1on 47-39-2421Fvxc [place] %6 %Normal1-12 [facility] HospitalComment on above:Performed By: #### [id number] #### [facility] (DEFAULT) [address] [place] [address] 43402Hwva Abs#0.0 l46Frtjze3.0-0.2[facility]trumbull [facility] HospitalComment on above:Performed By: #### [id number] #### [facility] (DEFAULT) [address] [place] [address] 60507Nztgwupjm/100 WBC (Bld)0.3 %Normal0.2-2.0[facility] Hospital Comment on above:Performed By: #### [id number] #### [facility] (DEFAULT) [address] [place] [address] 01832Mzz Abs#0.2 x99Snwurc7.0-0.4[facility] HospitalComment on above:Performed By: #### [id number] #### [facility] (DEFAULT) [address] [place] [address] 94731Wwsvppzyheh/100 WBC (Bld)3.4 %Normal0.9-4.0[facility] HospitalComment on above:Performed By: #### [id number] #### [facility] (DEFAULT) [address] [place] [address] 19734Ytifn Abs#2.4 d49Poprel4.3-2.9[facility] HospitalComment on above:Performed By: #### [id number] #### [facility] (DEFAULT) [address] [place] [address] 77567Zrskrgkofzc/100 WBC (Bld)34 %Ifnwmk33-20Bvserjbn Hospital Comment on above:Performed By: #### [id number] #### [facility] (DEFAULT) [address] [place] [address] 19559Dbos Abs#0.4 z06Qlgdrs6.0-0.8[facility] HospitalComment on above:Performed By: #### [id number] #### [facility] (DEFAULT) [address] [place] [address] 06786Kmzl Abs#4.0 v99Ginlea0.5-9.2[facility] HospitalComment on above:Performed By: #### [id number] #### [facility] (DEFAULT) [address] [place] [address] 48592Bzflvevried/100 WBC (Bld)56 %Vuycko69-96Hgybbfde Hospital Comment on above:Performed By: #### [id number] #### [facility] (DEFAULT) [address] [place] [address] 31598KCE w/ Auto Diffon 33-88-0686Jfdzkmhuegx distribution width (RBC) [Ratio]14.0 %Qjjtuy51.5-15.0[facility] HospitalComment on above: Performed By: #### [id number] #### [facility] (DEFAULT) [address] [place] [address] 33952Eediyzmnie (Bld) [Volume fraction]41.7 %High33.7-40.4 [facility] HospitalComment on above:Performed By: #### [id number] #### [facility] (DEFAULT) [address] [place] [address] 49988Misnqkmuis (Bld) [Mass/Vol]14.1 g/zYHrvfho74.3-15.9 [facility] HospitalComment on above:Performed By: #### [id number] #### [facility] (DEFAULT) [address] [place] [address] 20679Fgk Diff?AutoInvalid Interpretation CodeMiami Valley Hospital Comment on above:Performed By: #### [id number] #### [facility] (DEFAULT) [address] [place] [address] 08107GGM (RBC) [Entitic mass]29 imAqobvd44-87Ttdnkiqw Hospital Comment on above:Performed By: #### [id number] #### [facility] (DEFAULT) [address] [place] [address] 90785RBPL (RBC) [Mass/Vol]34 g/fVNqbabj84-73Wbgxwsfn Hospital Comment on above:Performed By: #### [id number] #### [facility] (DEFAULT) [address] [place] [address] 01826GCB (RBC) [Entitic vol]86 fSGzcqpv71-504Jeclvhzj Hospital Comment on above:Performed By: #### [id number] #### [facility] (DEFAULT) [address] [place] [address] 97298Emidrlxh468 z24Gnxpdc705-746Daabmpse HospitalComment on above:Performed By: #### [id number] #### [facility] (DEFAULT) [address] [place] [address] 56036Xdppzdoo mean volume (Bld) [Entitic vol]6.8 fLNormal 6.3-10.2[facility] HospitalComment on above:Performed By: #### [id number] #### [facility] (DEFAULT) [address] [place] [address] 96676XUE3.84 b84Zbjxwl2.70-5.30[facility] HospitalComment on above:Performed By: #### [id number] #### [facility] (DEFAULT) [address] [place] [address] 94031TQG2.1 t22Jfxscr0.5-10.5[facility] HospitalComment on above: Performed By: #### [id number] #### [facility] (DEFAULT) [address] [place] [address] 38901Xbuhodjahn 27-57-7715Bnradklh [Mass/Vol]15.8 ng/mLNormal 12.0-150.0[facility] HospitalComment on above:Performed By: #### [id number], 7213473, 5589156 #### [facility] (DEFAULT) [address] [place] [address] 81489Jorx Profileon 60-68-8999Lwey [Mass/Vol]72.0 ug/dLNormal 28.0-170.0[facility] HospitalComment on above:Performed By: #### [id number], 2024226, 2156472 #### [facility] (DEFAULT) [address] [place] [address] 70209Wfdj Sat19 %Rhn60-91Rsxowbuo HospitalComment on above: Performed By: #### [id number], 7296169, 8443225 #### [facility] (DEFAULT) [address] [place] [address] 30213OINS518 mcg/rFSfobob647-120Hkvivtyw HospitalComment on above:Performed By: #### [id number], 0925111, 1829934 #### [facility] (DEFAULT) [address] [place] [address] 70528Jtbrnlmeqju [Mass/Vol]274.6 mg/bLNrnbun368.0-382.0[facility] HospitalComment on above:Performed By: #### [id number], 7483896, 4729918 #### [facility] (DEFAULT) [address] [place] [address] 57858Hylgjq Summaryon 59-22-5945Lavszo SummaryMLBase 64 JhtfciovEFv6pZb+PGhlYWQ+GM8CCYJjD03qnRXohA7lP9CPHBmRXskqMDAWPHmZSnCvpmAoPX9gcIXy ZXJu [file] c (more content not included)...[facility] HospitalAmphetamine Screen Ql (U)Ordered By: Andry Lacy on 30-27-5270Qaqwrwlgbyqk Ql (U)Amphetamines screenNegativeMarion Hospital CenterAmphetamines Ql (U)Negative NegativeGalion Community HospitalBarbiturates [Presence] in Urine by Screen methodOrdered By: Andry Lacy on 18-08-6717Zbxdsmivcanw Screen Ql (U) NegativeNegativeGalion Community HospitalBarbiturates Screen Ql (U) Barbiturates [Presence] in Urine by Screen methodNegOhioHealth Doctors HospitalBenzodiazepines Screen Ql (U)Ordered By: Andry Lacy on 95-48-7237Kvaliqrceqrkcdx Ql (U)PositiveHighNegOhioHealth Doctors HospitalBenzodiazepines Ql (U)Benzodiazepines [Presence] in Urine by Screen method HighNegOhioHealth Doctors HospitalBenzoylecgonine [Presence] in Urine by Screen methodOrdered By: Andry Lacy on 92-80-0012Yphrpsqayhewuba Screen Ql (U)NegativeNegOhioHealth Doctors HospitalBenzoylecgonine Screen Ql (U)Benzoylecgonine [Presence] in Urine by Screen methodNegOhioHealth Doctors HospitalCannabinoids [Presence] in Urine by Screen methodOrdered By: Andry Lacy on 06-63-4095Ccqyfnphdnnv Screen Ql (U)PositiveHighSt. Anthony'S HospitalComment on above:These are unconfirmed results and should not be used for legal purposes. Drug Cut-Off Concentration: AMPH 1000 ng/mL LUIS ANTONIO 200 ng/mL JOHN 200 ng/mL COCM 300 ng/mL OP 300 ng/mL PCP 25 ng/mL THC 20 ng/mLCannabinoids Screen Ql (U)Cannabinoids [Presence] in Urine by Screen methodHighNegOhioHealth Doctors HospitalComment on above:These are unconfirmed results and should not be used for legal purposes. Drug Cut-Off Concentration: AMPH 1000 ng/mL LUIS ANTONIO 200 ng/mL JOHN 200 ng/mL COCM 300 ng/mL OP 300 ng/mL PCP 25 ng/mL THC 20 ng/mLHCG ( test) IA.rapid Ql (U)Ordered By: Andry Lacy on 61-31-4125YUL ( test) Ql (U)NegativeGalion Community HospitalHCG ( test) Ql (U)Urine human chorionic gonadotropin (hCG) detection by immunoassayGalion Community Hospital Opiates [Presence] in Urine by Screen methodOrdered By: Andry Lacy on 13-10-5599Sqxeewv Screen Ql (U)NegativeNegativeGalion Community Hospital Opiates Screen Ql (U)Opiates [Presence] in Urine by Screen methodNegative [facility] HospitalPhencyclidine Screen Ql (U)Ordered By: Andry Lacy on 33-89-3428Pnckqvcywfrgc Ql (U)NegativeNegativeGalion Community HospitalPhencyclidine Ql (U)Phencyclidine [Presence] in Urine by Screen methodNegativeGalion Community HospitalAlanine aminotransferase [Enzymatic activity/volume] in Serum or PlasmaOrdered By: Romeo Santana on 94-65-1631FRZ [Catalytic activity/Vol]14 U/L7-52[facility] HospitalAlbumin [Mass/volume] in Serum or Plasma by Bromocresol green (BCG) dye binding methoOrdered By: Romeo Santana on 57-76-9513Htnxwcd BCG dye [Mass/Vol]4.6 g/dL3.5-5.7FCherrington HospitalAlkaline phosphatase [Enzymatic activity/volume] in Serum or PlasmaOrdered By: Roemo Santana on 92-52-9321QEC [Catalytic activity/Vol]41 U/G00-008AjyamfkffGalion Community HospitalAspartate aminotransferase [Enzymatic activity/volume] in Serum or PlasmaOrdered By: Romeo Santana on 49-14-9887JAA [Catalytic activity/Vol]13 U/V89-00UkzsttpgaGalion Community HospitalBasophils Auto (Bld) [#/Vol]Ordered By: Romeo Santana on 11-28-2023 Basophils (Bld) [#/Vol]0.0 10*3/uL0.0-0.2FCherrington Hospital Basophils/100 WBC Auto (Bld)Ordered By: Romeo Santana on 90-03-5555Xycfzdufo/100 WBC (Bld)0.3 %.[facility] Community HospitalBilirubin.total [Mass/volume] in Serum or PlasmaOrdered By: Romeo Santana on 90-77-9077Frcnncdfh [Mass/Vol]0.5 mg/dL0.3-1.0[facility] HospitalCalcium [Mass/volume] in Serum or PlasmaOrdered By: Romeo Santana on 69-68-1623Zqhtpmz [Mass/Vol]9.4 mg/dL8.6-10.3 [facility] HospitalCarbon dioxide, total [Moles/volume] in Serum or PlasmaOrdered By: Romeo Santana on 92-67-0590PF2 [Moles/Vol]27.8 mmol/L 21.0-31.0[facility] HospitalChloride [Moles/volume] in Serum or PlasmaOrdered By: Romeo Santana on 52-62-9760Kacibvyy [Moles/Vol]106 mmol/L98-107 [facility] HospitalCreatinine [Mass/volume] in Serum or Plasma Ordered By: Romeo Santana on 37-79-5489Ikwiwatozl [Mass/Vol]0.62 mg/dL0.60-1.20 [facility] HospitalEosinophils Auto (Bld) [#/Vol]Ordered By: Romeo Santana on 09-77-3759Mnjevghiabe (Bld) [#/Vol]0.2 10*3/uL0.0-0.45[facility] HospitalEosinophils/100 WBC Auto (Bld)Ordered By: Romeo Santana on 15-22-0571Cboypkypaeg/100 WBC (Bld)3.5 %.[facility] Erythrocyte distribution width Auto (RBC) [Ratio]Ordered By: Romeo Santana on 95-21-9795Mclrppyoird distribution width (RBC) [Ratio]14.0 %11.9-15.3FCherrington HospitalGlobulin Calc (S) [Mass/Vol]Ordered By: Romeo Santana on 94-06-4698Rnmydpgx (S) [Mass/Vol]2.0 g/dLGalion Community Hospital Glucose [Mass/volume] in Serum or PlasmaOrdered By: Romeo Santana on 11-28-2023 Glucose [Mass/Vol]76 mg/xD70-212PmnalqpetGalion Community HospitalHematocrit Auto (Bld) [Volume fraction]Ordered By: Romeo Santana on 14-28-1848Ncekgkstcb (Bld) [Volume fraction]40.1 %34.0-46.4FCherrington HospitalHemoglobin [Mass/volume] in BloodOrdered By: Romeo Santana on 92-21-9482Rqqmiubhsb (Bld) [Mass/Vol]13.6 g/dL11.8-15.4FCherrington HospitalLeukocytes [#/volume] corrected for nucleated erythrocytes in Blood by Automated coun Ordered By: Romeo Santana on 84-39-9545OXN corrected for nucl RBC Auto (Bld) [#/Vol]6.4 10*3/uL3.8-11.6FCherrington HospitalLymphocytes Auto (Bld) [#/Vol]Ordered By: Romeo Santana on 96-39-1936Zuaezemsslw (Bld) [#/Vol]2.4 10*3/uL1.00-4.8[facility] HospitalLymphocytes/100 WBC Auto (Bld) Ordered By: Romeo Santana on 79-81-4482Jaqvnkoaexr/100 WBC (Bld)38.3 %.[facility] HospitalMCH Auto (RBC) [Entitic mass]Ordered By: Romeo Santana on 63-75-4769IBD (RBC) [Entitic mass]29.3 pg24.7-34.3FCherrington HospitalMCHC Auto (RBC) [Mass/Vol]Ordered By: Romeo Santana on 20-13-7662XNTC (RBC) [Mass/Vol]33.8 g/dL32.0-35.0[facility] HospitalMCV Auto (RBC) [Entitic vol]Ordered By: Romeo Santana on 03-19-4323FHD (RBC) [Entitic vol]86.7 qH44-488DzngybgyjGalion Community HospitalMonocytes Auto (Bld) [#/Vol]Ordered By: Romeo Santana on 47-52-4647Hxyadxeun (Bld) [#/Vol]0.4 10*3/uL0.0-0.8[facility] Community HospitalMonocytes/100 WBC Auto (Bld)Ordered By: Romeo Santana on 01-46-2711Pdpiwzzpv/100 WBC (Bld)5.8 %.[facility] Neutrophils Auto (Bld) [#/Vol]Ordered By: Romeo Santana on 53-31-6445Slewwlktkdw (Bld) [#/Vol]3.3 10*3/uL1.8-7.7FCherrington HospitalNeutrophils/100 WBC Auto (Bld)Ordered By: Romeo Santana on 34-58-7515Mduylstnpxo/100 WBC (Bld) 52.1 %.[facility] HospitalNo Panel InformationOrdered By: Romeo Santana on 11-51-1918Szsgsykks GFR (CKD-EPI)> 60.0 mL/MinGalion Community HospitalPharmacy Creatinine Clearance (ChemN/AFCherrington HospitalNucleated erythrocytes [Presence] in Blood by Automated countOrdered By: Romeo Santana on 29-81-2660Mwbzzopee RBC Auto Ql (Bld)0.0 /100{WBC}0-0.5FCherrington HospitalPlatelet mean volume Auto (Bld) [Entitic vol]Ordered By: Romeo Santana on 46-38-2300Kimfxgof mean volume (Bld) [Entitic vol]6.8 fL6.3-10.7 [facility] HospitalPlatelets Auto (Bld) [#/Vol]Ordered By: Romeo Santana on 33-78-1790Jdpilupgu (Bld) [#/Vol]159 10*3/rX643-659OfswknulgGalion Community HospitalPotassium [Moles/volume] in Serum or PlasmaOrdered By: Romeo Santana on 28-17-2890Wqvdxiqzf [Moles/Vol]4.2 mmol/L3.5-5.1FCherrington HospitalProtein [Mass/volume] in Serum or PlasmaOrdered By: Romeo Santana on 06-78-6134Yduvuwz [Mass/Vol]6.6 g/dL6.4-8.9[facility] RBC Auto (Bld) [#/Vol]Ordered By: Romeo Santana on 45-44-2029DXA (Bld) [#/Vol] 4.63 10*6/uL3.60-5.00[facility] Centererum or plasma albumin/globulin mass ratioOrdered By: Romeo Santana on 11-28-2023 Albumin/Globulin [Mass ratio]2.3 {ratio}[facility] Centererum or plasma anion gap determinationOrdered By: Romeo Santana on 91-33-9076Okdkg gap [Moles/Vol]10.4 mmol/L6.0-15.0[facility] Centerodium [Moles/volume] in Serum or PlasmaOrdered By: Romeo Santana on 31-50-3937Mlwjrc [Moles/Vol]140 mmol/Y095-893DhximwoerGalion Community HospitalUrea nitrogen [Mass/volume] in Serum or PlasmaOrdered By: Romeo Santana on 44-95-0517Myvu nitrogen [Mass/Vol]7 mg/dL7-25Galion [facility] HospitalWBC Auto (Bld) [#/Vol]Ordered By: Romeo Santana on 41-55-1055JSB (Bld) [#/Vol]6.4 10*3/uL 3.8-11.6FCherrington HospitalCoding Summaryon 70-94-6335Asjgbf SummaryHTMLBase 64 AhghbtziSGg5bEb+PGhlYWQ+KT8FKUCnU26xjWIioU6pO4HESPcNGsuhDWJXANsTPrZgmvJyWN0kuGEn ZXJu [file] b3J (more content not included)...NormalMagruder HospitalCoding SummaryHTMLBase 64 YnerwtxmXXu0jZr+PGhlYWQ+YF4MZKMiA70niQPuzQ4iI1YBTMqYDcwuKAJSTMgTWjPvecRpHF4tnHLy ZXJu [file] b3J (more content not included)...[facility] HospitalProvider Orderson 59-40-8851Gbytaymu [id number]#1.00OTGTIFF [facility] HospitalChlamydia/GC Amplification LCon 23-33-1452Tjepqisxf trachomatis, AC LCNegativeInvalid Interpretation CodeNegOhio State Harding Hospital Comment on above:Performed By: #### [id number] #### [facility] (DEFAULT) [address] [place] [address] 48317Xbfsczicn gonorrhoeae, AC LCNegativeInvalid Interpretation CodeNegOhio State Harding HospitalComment on above:Result Comment: Performed At: =[facility] [id number] Ivan Calvni MD Ph:[phone] By: #### [id number] #### [facility] (DEFAULT) [address] [place] [address] 25058Qxbgvbd Formson 98-60-4577Wugwsal Forms [id number]#1.00OTGTIFFMercy Health Allen HospitalED Note-Nursingon 21-55-2875AP Note-NursingFluconazole 150mg tab called into [facility] Patient contacted and notified of the results of her culture and the prescription that was sent forher. Instructions on how to take the medication was given, patient verbalized understanding [facility].Auto Diff 1on 08-35-0954Qllp [place] %9 %Normal1-12[facility] Comment on above:Performed By: #### [id number], [id number], [id number] #### [facility] (DEFAULT) [address] [place] [address] 34871Ivne Abs#0.0 l38Rhcrcb6.0-0.2[facility] HospitalComment on above:Performed By: #### [id number], [id number], [id number] #### [facility] (DEFAULT) [address] [place] [address] 66110Stpevsedg/100 WBC (Bld)0.2 %Normal0.2-2.0[facility] Comment on above:Performed By: #### [id number], [id number], [id number] #### [facility] (DEFAULT) [address] [place] [address] 46665Ths Abs#0.3 m54Auhvsj2.0-0.4[facility] HospitalComment on above:Performed By: #### [id number], [id number], [id number] #### [facility] (DEFAULT) [address] [place] [address] 38060Kmhbctormro/100 WBC (Bld)9.0 %High0.9-4.0[facility] Comment on above:Performed By: #### [id number], [id number], [id number] #### [facility] (DEFAULT) [address] [place] [address] 03762Uqvqg Abs#0.4 d19Skc6.3-2.9[facility] HospitalComment on above:Performed By: #### [id number], [id number], [id number] #### [facility] (DEFAULT) [address] [place] [address] 56718Ngibyvvonog/100 WBC (Bld)12 %Kga72-62YfyafpdtMi[facility] Hospital Comment on above:Performed By: #### [id number], [id number], [id number] #### [facility] (DEFAULT) [address] [place] [address] 62691Xnnt Abs#0.3 p01Xjbtnj5.0-0.8[facility] HospitalComment on above:Performed By: #### [id number], [id number], [id number] #### [facility] (DEFAULT) [address] [place] [address] 47856Yrze Abs#2.4 e97Nmybpy4.5-9.2[facility] HospitalComment on above:Performed By: #### [id number], 7005875, 8925100 #### [facility] (DEFAULT) [address] [place] [address] 60140Etqfrqrngmu/100 WBC (Bld)70 %Cnokui40-17Nfxeacsv Hospital Comment on above:Performed By: #### [id number], [id number], [id number] #### [facility] (DEFAULT) [address] [place] [address] 50164E Genitalon 11-02-2023 GenitalHeavy growth of Yeast No CARLOS performed on this organism No growth of GC at 3 days. 4+ Gram Positive Rods Few Yeast No WBC's seen. Gram Negative Diplococci not seen.[facility] HospitalComment on above: Performed By: #### [id number] #### [facility] (DEFAULT) [address] [place] [address] 61776AGD w/ Auto Diffon 18-79-6691Pdqhdwnwjyl distribution width (RBC) [Ratio]13.7 %Lcdxwi95.5-15.0[facility] HospitalComment on above: Performed By: #### [id number], [id number], [id number] #### [facility] (DEFAULT) [address] [place], [place] [address]Hematocrit (Bld) [Volume fraction]40.5 %High33.7-40.4 [facility] HospitalComment on above:Performed By: #### [id number], 8062462, [id number] #### [facility] (DEFAULT) [address] [place], [place] [address]Hemoglobin (Bld) [Mass/Vol]13.7 g/fMBsrsal80.3-15.9 [facility] HospitalComment on above:Performed By: #### [id number], 6244253, [id number] #### [facility] (DEFAULT) [address] [place] [address] 82419Jdv Diff?AutoInvalid Interpretation [facility] Comment on above:Performed By: #### [id number], [id number], [id number] #### [facility] (DEFAULT) [address] [place] [address] 66544OQT (RBC) [Entitic mass]29 kwAmtjer38-70[facility] Comment on above:Performed By: #### [id number], [id number], 0363236 #### [facility] (DEFAULT) [address] [place] [address] 01636PYTK (RBC) [Mass/Vol]34 g/jEIivffb41-77Tzlachfc Hospital Comment on above:Performed By: #### [id number], 8601022, 9578786 #### [facility] (DEFAULT) [address] [place] [address] 08386DSJ (RBC) [Entitic vol]85 mRCszjaf77-135Ywxmqvbk Hospital Comment on above:Performed By: #### [id number], 8737511, 0979633 #### [facility] (DEFAULT) [address] [place] [address] 18976Sytgfkkh381 r51Tga268-202Mwcjwjia HospitalComment on above:Performed By: #### [id number], 9870665, 8567449 #### [facility] (DEFAULT) [address] [place] [address] 94840Nrxfqqrn mean volume (Bld) [Entitic vol]7.0 fLNormal 6.3-10.2[facility] HospitalComment on above:Performed By: #### [id number], 3377249, 8848366 #### [facility] (DEFAULT) [address] [place] [address] 38435QSY2.74 v11Aclkyk0.70-5.30[facility] HospitalComment on above:Performed By: #### [id number], 8450705, 4819289 #### [facility] (DEFAULT) [address] [place] [address] 80283SJB3.5 s24Jenshj2.5-10.5[facility] HospitalComment on above: Performed By: #### [id number], 0590223, 0878685 #### [facility] (DEFAULT) [address] [place] [address] 75570OKQ Standardon 40-99-2497yNLJ Non AA>60Invalid Interpretation [facility] HospitalComment on above:Performed By: #### [id number], 5277456, 4225149 #### [facility] (DEFAULT) [address] [place] [address] 83870mLYF AA>60Invalid Interpretation [facility] Comment on above:Performed By: #### [id number], 5875905, 6720925 #### [facility] (DEFAULT) [address] [place] [address] 45264Edufiox [Mass/Vol]4.1 g/dLNormal3.5-5.0[facility] Comment on above:Performed By: #### [id number], 6047911, 4679626 #### [facility] (DEFAULT) [address] [place] [address] 48503Weczbzt/Globulin [Mass ratio]1.7 {ratio}Normal1.4-2.6 [facility] HospitalComment on above:Performed By: #### [id number], 5993792, 5819057 #### [facility] (DEFAULT) [address] [place] [address] 34582Qim Phos40 IU/FLdybja73-10Gkthhaha HospitalComment on above:Performed By: #### [id number], 7639580, 4559895 #### [facility] (DEFAULT) [address] [place] [address] 10945MRU [Catalytic activity/Vol]20.0 U/ROliwnc41.0-54.0 [facility] HospitalComment on above:Performed By: #### [id number], 0563976, 8922899 #### [facility] (DEFAULT) [address] [place] [address] 73527Nuvvu gap [Moles/Vol]9.5 mmol/LNormal5.0-19.0[facility] HospitalComment on above:Performed By: #### [id number], 8588977, 1761662 #### [facility] (DEFAULT) [address] [place] [address] 73027XMY [Catalytic activity/Vol]19 U/AZvcjrv65-02Ashzgrhk HospitalComment on above:Performed By: #### [id number], 4270241, 8629063 #### [facility] (DEFAULT) [address] [place] [address] 41629Duwu Total0.7 mg/dLNormal0.3-1.2[facility] HospitalComment on above:Performed By: #### [id number], 9740468, 7121384 #### [facility] (DEFAULT) [address] [place] [address] 13313Iaelnbu [Mass/Vol]8.4 mg/dLLow8.9-10.3[facility] Hospital Comment on above:Performed By: #### [id number], 5126498, 2714752 #### [facility] (DEFAULT) [address] [place] [address] 28450Qrhqdqfe [Moles/Vol]109 mmol/NTngtyq415-900Ylhfmrjw HospitalComment on above:Performed By: #### [id number], 1733974, 1850732 #### [facility] (DEFAULT) [address] [place] [address] 65029RC1 [Moles/Vol]21 mmol/HDgncgq49-69Lbylsdub Hospital Comment on above:Performed By: #### [id number], 1375602, 7323577 #### [facility] (DEFAULT) [address] [place] [address] 80079Sgjwkldjpo [Mass/Vol]0.71 mg/dLNormal0.60-1.30[facility] HospitalComment on above:Performed By: #### 48784286, 9513859, 6124375 #### [facility] (DEFAULT) [address] [place] [address] 24855Ycwbksni (S) [Mass/Vol]2.4 g/dLNormal1.5-4.3MTrinity Health System East CampusComment on above:Performed By: #### [id number], 0721884, 4446454 #### [facility] (DEFAULT) [address] [place] [address] 17983Vuwzzky [Mass/Vol]95.0 mg/rZIecbqg97.0-118.0[facility] HospitalComment on above:Performed By: #### [id number], 8797669, 1238431 #### [facility] (DEFAULT) [address] [place] [address] 22116Udbvfogsim559 mOsm/LInvalid Interpretation CodeMagruder Hospital HospitalComment on above:Performed By: #### [id number], 7661101, 6353848 #### [facility] (DEFAULT) [address] [place] [address] 56439Tahwtvhuz [Moles/Vol]3.5 mmol/LLow3.6-5.1[facility] Hospital Comment on above:Performed By: #### [id number], 7330816, 8640996 #### [facility] (DEFAULT) [address] [place] [address] 21220Monwzvs [Mass/Vol]6.5 g/dLNormal6.5-8.1MTr[facility] Comment on above:Performed By: #### [id number], 8702130, 8805883 #### [facility] (DEFAULT[facility] [address] [place] [address] 36934Bwspyj [Moles/Vol]136.0 mmol/QNcosyz093.0-144.0[facility] HospitalComment on above:Performed By: #### [id number], 6460872, 9893580 #### [facility] (DEFAULT[facility] [address] [place] [address] 87549Jzcq nitrogen [Mass/Vol]7 mg/dLLow8-26[facility] Comment on above:Performed By: #### [id number], 9765710, 2216531 #### [facility] (DEFAULT) [address] [place] [address] 70371Qjfu nitrogen/Creatinine [Mass ratio]9.8 mg/mgNormal 4.6-16.2MTrinity Health System East CampusComment on above:Performed By: #### [id number], 4256272, 2323522 #### [facility] (DEFAULT) [address] [place] [address] 43751MT Abdomen/Pelvis w/ Contraston 35-17-6329VS Abdomen/Pelvis w/ ContrastEXAMINATION: CT Abdomen/Pelvis w/ Contrast, [...] Monteiro DO 11/02/23 3:37 pm Technologist: DEY[facility] DUFFYChillicothe [facility] Clinical Summaryon 78-41-8652QI [facility] Summary[facility] [address] [place] [id number] ED Clinical Summary PERSON INFORMATION Name: JAZ SANDERS Age: 28 Years Sex: FEMALE : 1995 MRN: Acct#: Visit Reason: Abdominal pain; Nausea; FLANK/HIP PAIN, FEVER Arrival: 11/02/2023 07:57:28 Discharge: 11/02/2023 13:31:00 LOS: 000 05:34 Check In: 11/02/2023 07:57:28 Checkout:11/02/2023 13:31:00 Address: [facility] [address] PCP: Amanda Ford CNP PROVIDER INFORMATION Provider [...] Follow-Up: With: Address: When: Amanda Ford CNP [address] [place] [address] Within 3 to 5 days DIAGNOSIS: 1:Hip pain Patient Understands: Yes - Patient/family/caregiver verbalizes understanding of instructions given Comment:[facility] Patient Summaryon 25-31-0525ZT Patient Summary [facility] - Emergency Department [address] [place] [address] PATIENT DISCHARGE INSTRUCTIONS Patient Information Name: JAZ SANDERS Age: 28 Years Date of : 1995 Reason For Visit: Abdominal pain; Nausea; FLANK/HIP PAIN, FEVER Arrival Time: 11/02/2023 07:57:28 Primary Care Physician: Amanda Ford CNP Attending Physician: Narda Phillips MD Comment: Visit Diagnosis: Diagnoses This Visit Abdominal pain ([id number]) Hip pain (M25.559) Nausea (NBq9ZVO0bBwzJtTZi8kste) The [facility] is open Tuesday through Tuesday from [...] alcohol and/or drug addiction problems; contact the [facility] 08/11 Crisis Hotline -Text 3TWDQ go [phone]. If you received any narcotics, sedation, or [...] documents With: Address: When: Amanda Ford CNP [facility] [place] [address] Within 3 to 5 days Medication Information: The exam and treatment you received today in the [facility] Emergency Department were for an urgent problem and are not intended as complete care. It is important for you to follow up with a doctor, nurse practitioner, or physician?s marketing communications assistant for ongoing care. If your symptoms [...] so we can reach you if necessary. [facility] Department has provided you with a complete list of medications post discharge. Please inform your tub mender/provider of your visit and for further instruction on these medications. Any specific questions regarding your chronic medications and dosages should be discussed with your primary care physician(s) and/or pharmacist. New Medications [facility] [address] [place], [place] [id number], [phone] cyclobenzaprine (cyclobenzaprine 10 mg oral tablet) 1 [...] Refills: 0. lidocaine topic (more content not included)...[facility] HospitalExtra Green on 90-41-2910Obul CollectedYesInvalid Interpretation [facility] Comment on above:Performed By: #### [id number], [id number], [id number] #### [facility] (DEFAULT) [address] [place] [address] 94176Zorwpturg Test Urine 1on 11-02-2023U PregNegativeSelect Medical Specialty Hospital - Southeast OhioComment on above:Performed By: #### [id number] #### [facility] (DEFAULT) [address] [place] [address] 25833U Preg Internal ControlPassMercy Health Allen HospitalComment on above:Performed By: #### [id number] #### [facility] (DEFAULT) [address] [place] [address] 19850GT Qbwhv2xe 53-21-8552CS BacteriaTraceMercy Health Allen HospitalComment on above:Order Comment: Urinalysis Microscopic order added on by [employer] Rules system.Performed By: #### [id number] #### [facility] (DEFAULT) [address] [place] [address] 28063CA Mucous1+[facility] HospitalComment on above:Order Comment: Urinalysis Microscopic order added on by [employer] Expert Rules system. Performed By: #### [id number] #### [facility] (DEFAULT) [address] [place] [address] 32349QJ RBCNone SeenOhio State East Hospital HospitalComment on above: Order Comment: Urinalysis Microscopic order added on by [employer] Expert Rules system.Performed By: #### [id number] #### [facility] (DEFAULT) [address] [place] [address] 94325CA Squam EpiFewNoOhioHealth Grant Medical Center HospitalComment on above: Order Comment: Urinalysis Microscopic order added on by Dis[employer] Expert Rules system.Performed By: #### [id number] #### [facility] (DEFAULT) [address] [place] [address] 57786EU WBCNone SeenOhio State East Hospital HospitalComment on above: Order Comment: Urinalysis Microscopic order added on by [employer] Expert Rules system.Performed By: #### [id number] #### [facility] (DEFAULT) [address] [place] [address] 22688GR w Culture if Ind Standardon 31-12-5691Abgpozcytm UA NormalMagruder Hospital HospitalComment on above:Performed By: #### [id number] #### [facility] (DEFAULT) [address] [place] [address] 59656Anysk (U)Dark YellowNoDayton VA Medical CenterComment on above:Performed By: #### [id number] #### [facility] (DEFAULT) [address] [place] [address] 93475Xdnjfvy?Not IndicatedInvalid Interpretation [facility] HospitalComment on above:Result Comment: Result created by rule GL_MAGR_ADD_UA_CULTPerformed By: #### [id number] #### [facility] (DEFAULT) [address] [place] [address] 77121Kskphnu (U) [Mass/Vol]NegativeOhio State East Hospital Hospital Comment on above:Performed By: #### [id number] #### [facility] (DEFAULT) [address] [place] [address] 58965Mvdwpxx Ql (U)TRACENormalMagruder HospitalComment on above:Performed By: #### [id number] #### [facility] (DEFAULT) [address] [place] [address] 43280Iqnqa?IndicatedInvalid Interpretation CodeNhgruder HospitalComment on above:Result Comment: Result created by rule GL_MAGR_ADD_UA_MICROPerformed By: #### [id number] #### [facility] (DEFAULT) [address] [place] [address] 61126UW BilirubinMODERATEAbnormalNhgrtrumbull regional medical center HospitalComment on above:Performed By: #### [id number] #### [facility] (DEFAULT) [address] [place] [address] 14960ZD BloodNegativeNormalNEGATIVEMagrtrumbull regional medical center HospitalComment on above:Performed By: #### [id number] #### [facility] (DEFAULT) [address] [place] [address] 29533KO ClaritySL CLOUDYAbnormalCLEARMagrtrumbull regional medical center HospitalComment on above:Performed By: #### [id number] #### [facility] (DEFAULT) [address] [place] [address] 37602YT Leuk EstNegativeNormalNEGATIVEMagruder Hospital HospitalComment on above:Performed By: #### [id number] #### [facility] (DEFAULT) [address] [place] [address] 16072TN NitriteNegativeNormalNEGATIVENhgrtrumbull regional medical center HospitalComment on above:Performed By: #### [id number] #### [facility] (DEFAULT) [address] [place] [address] 93580HM pH6.0Gymrpc8-7Lwbffuwo HospitalComment on above: Performed By: #### [id number] #### [facility] (DEFAULT) [address] [place] [address] 12824KS Xkwnmci19EwrwklhaEPLNNQPZBccpyfsv HospitalComment on above:Performed By: #### [id number] #### [facility] (DEFAULT) [address] [place] [address] 70874QE Spec Grav>=1.507Rcymtw5.001-1.035[facility] Hospital Comment on above:Performed By: #### [id number] #### [facility] (DEFAULT) [address] [place] [address] 28530JF Urobilinogen1.0 mg/dLNormal0.2-1.0[facility] Comment on above:Performed By: #### [id number] #### [facility] (DEFAULT) [address] [place] [address] 93383Jmrgv SourceClean CatchMercy Health Allen HospitalComment on above:Performed By: #### [id number] #### [facility] (DEFAULT) [address] [place] [address] 29888Sut [facility].on 86-89-9760Xjm [facility] at BellevilleComment on above:Performed By: #### [id number] #### [facility] (DEFAULT) [address] [place] [address] 35354Kehjjx Summaryon 35-73-1963Lpdsvv SummaryHTMLBase 64 UzbiqtxcZPy4iSy+PGhlYWQ+ZA0NMGEvM99xcADoeH1fF2NAAXlEVtuuGPIEOYfWOlGmxdVnJY8mvZGt ZXJu [file] [facility] (more content not included)...[facility] HospitalBasophils Auto (Bld) [#/Vol]on 15-75-2880Qlkxjdytu (Bld) [#/Vol]0.0 x100.0-0.2FCherrington HospitalBasophils/100 WBC Auto (Bld)on 59-23-0107Awexedpqc/100 WBC (Bld) 0.3 %0.2-2.0[facility] HospitalEosinophils/100 WBC Auto (Bld)on 89-46-7381Iltuzopcpgn/100 WBC (Bld)2.7 %0.9-4.0[facility] Erythrocyte distribution width Auto (RBC) [Ratio]on 33-05-9972Engrmevrdjm distribution width (RBC) [Ratio]14.1 %11.5-15.0[facility] Hematocrit Auto (Bld) [Volume fraction]on 29-28-2296Bfcmpivued (Bld) [Volume fraction]41.4 %High33.7-40.4FCherrington HospitalHemoglobin [Mass/volume] in Bloodon 92-21-5243Vjsdqllwyz (Bld) [Mass/Vol]14.0 g/dL11.3-15.9 [facility] HospitalIron binding capacity [Mass/volume] in Serum or Plasmaon 72-86-1432Bodn binding capacity [Mass/Vol]405 mcg/yXPqvp870-440 [facility] HospitalIron saturation [Mass Fraction] in Serum or Plasmaon 58-35-0614Xxun saturation [Mass fraction]12 %Yvn20-95BjhvqzdlrGalion Community HospitalLaboratory - Chemistry and Chemistry - challengeon 37-05-0447Dbsk [Mass/Vol]48.0 ug/dL28.0-170.0[facility] HospitalTransferrin [Mass/Vol]289.2 mg/dL192.0-382.0[facility] HospitalLeukocytes [#/volume] corrected for nucleated erythrocytes in Blood by Automated counon 77-91-1925XWI corrected for nucl RBC Auto (Bld) [#/Vol]6.4 x103.5-10.5FCherrington HospitalLymphocytes Auto (Bld) [#/Vol]on 98-06-4993Bdmdjpsywtc (Bld) [#/Vol]2.2 x101.3-2.9[facility] HospitalLymphocytes/100 WBC Auto (Bld)on 38-38-6975Hkcxngfdqqp/100 WBC (Bld)34 %14-48[facility] HospitalMCH Auto (RBC) [Entitic mass]on 49-44-2237WNN (RBC) [Entitic mass] 29 qd35-67LouqrbzozGalion Community HospitalMCHC Auto (RBC) [Mass/Vol]on 79-31-4852EWOR (RBC) [Mass/Vol]34 g/dX51-64TsdtvpsmzGalion Community HospitalMCV Auto (RBC) [Entitic vol]on 80-43-9757IRL (RBC) [Entitic vol]87 nT59-622PghqfvpkeGalion Community HospitalMonocytes Auto (Bld) [#/Vol]on 46-97-7618Zhgmarmfb (Bld) [#/Vol]0.4 x100.0-0.8[facility] HospitalMonocytes/100 WBC Auto (Bld)on 18-93-4681Zqnxcmxkb/100 WBC (Bld)6 %1-12[facility] HospitalNeutrophils Auto (Bld) [#/Vol]on 02-70-8123Saipmzlfqbn (Bld) [#/Vol]3.7 x101.5-9.2FCherrington HospitalNeutrophils/100 WBC Auto (Bld)on 03-13-6428Kecgxcujfgd/100 WBC (Bld)57 %44-88[facility] HospitalNo Panel Informationon 72-99-2741Ynj Manual DifferentialAuto AutoGalion Community HospitalEosinophils # (Auto)0.2 x100.0-0.4FCherrington HospitalPlatelet mean volume Auto (Bld) [Entitic vol]on 40-17-3567Znstnbbx mean volume (Bld) [Entitic vol]6.7 fL6.3-10.2FCherrington Hospital Platelets Auto (Bld) [#/Vol]on 86-45-8315Gcttatnhs (Bld) [#/Vol]179 x26367-444 [facility] HospitalRBC Auto (Bld) [#/Vol]on 15-70-1359OCM (Bld) [#/Vol]4.76 x103.70-5.30[facility] HospitalFollitropin [Units/volume] in [...] Community HospitalCT biopsyOrdered By: Amanda Ford on 84-81-7330Lqajpxnakcg [Mass/Vol]393 mg/iW850-008VsewffbfkGalion Community HospitalIron [Mass/volume] in Serum or PlasmaOrdered By: Amanda Ford on 41-44-4410Blum [Mass/Vol]34 ug/vL77-702 [facility] HospitalIron binding capacity [Mass/volume] in Serum or PlasmaOrdered By: Amanda Ford on 44-89-2717Faln binding capacity [Mass/Vol]550 ug/pB834-442PuppbvkwiGalion Community HospitalIron saturation [Mass Fraction] in Serum or PlasmaOrdered By: Amanda Ford on 34-42-8415Actp saturation [Mass fraction]6.2 %20-50[facility] Anisocytosis LM Ql (Bld)Ordered By: Farhad Gallego on 66-92-0799Pewghvdtbomr Ql (Bld)MarkedGalion Community HospitalBasophils Auto (Bld) [#/Vol]Ordered By: Farhad Gallego on 87-35-3247Eakafrdrc (Bld) [#/Vol]N/[facility] WestBasophils/100 WBC Auto (Bld)Ordered By: Farhad Gallego on 06-11-2022 Basophils/100 WBC (Bld)N/[facility] - WestBasophils/100 WBC Manual cnt (Bld)Ordered By: Farhad Gallego on 87-18-9463Azovwokvb/100 WBC (Bld)1 % 0-2FCherrington HospitalEosinophils Auto (Bld) [#/Vol]Ordered By: Farhad Gallego on 34-47-4543Hcdnpxvsyyg (Bld) [#/Vol]N/[facility] WBC Auto (Bld)Ordered By: Farhad Lashonda on 06-11-2022 Eosinophils/100 WBC (Bld)N[facility] WBC Manual cnt (Bld)Ordered By: Farhad Lashonda on 66-70-4867Jymuqlzssrr/100 WBC (Bld) 7 %1-3FCherrington HospitalErythrocyte distribution width Auto (RBC) [Ratio]Ordered By: Farhad Lashonda on 90-02-4066Tlzpkcdqncq distribution width (RBC) [Ratio]26.1 %11.9-15.3FCherrington HospitalHematocrit Auto (Bld) [Volume fraction]Ordered By: Farhad Lashonda on 75-30-9804Htmdrljkgd (Bld) [Volume fraction]25.7 %34.0-46.4FCherrington HospitalHemoglobin [Mass/volume] in BloodOrdered By: Farhad Lashonda on 60-43-5920Jgwrvfwvvc (Bld) [Mass/Vol]8.0 g/dL11.8-15.4FCherrington HospitalHypochromia LM Ql (Bld)Ordered By: Farhad Lashonda on 71-20-4125Jvgbtxvhnvx Ql (Bld)[facility] HealthcareLeukocytes [#/volume] corrected for nucleated erythrocytes in Blood by Automated counOrdered By: Farhad Lashonda on 85-42-0072EVJ corrected for nucl RBC Auto (Bld) [#/Vol]5.0 10*3/uL3.8-11.6FCherrington HospitalLymphocytes Auto (Bld) [#/Vol]Ordered By: Farhad Lashonda on 87-21-2968Bqbtebkixjf (Bld) [#/Vol]N/[facility] Lymphocytes/100 WBC Auto (Bld)Ordered By: Farhad Lashonda on 06-11-2022 Lymphocytes/100 WBC (Bld)N/[facility] WestLymphocytes/100 WBC Manual cnt (Bld)Ordered By: Farhad Lashonda on 79-19-8426Phirrzuidaq/100 WBC (Bld) 56 %18-42[facility] HospitalMCH Auto (RBC) [Entitic mass]Ordered By: Farhad Lashonda on 58-32-4400JIC (RBC) [Entitic mass]21.1 pg24.7-34.3FCherrington HospitalMCHC Auto (RBC) [Mass/Vol]Ordered By: Farhad Lashonda on 89-03-0689HFMI (RBC) [Mass/Vol]31.2 g/dL32.0-35.0[facility] HospitalMCV Auto (RBC) [Entitic vol]Ordered By: Farhad Lashonda on 58-36-7285WSH (RBC) [Entitic vol]67.6 jC15-291WkjdnugweGalion Community HospitalMicrocytes LM Ql (Bld)Ordered By: Farhad Lashonda on 35-69-2288Pjwvphhfls Ql (Bld)MarkedGalion Community HospitalMonocytes Auto (Bld) [#/Vol]Ordered By: Farhad Lashonda on 37-69-0121Lvrcgyxzy (Bld) [#/Vol]N/[facility] Monocytes/100 WBC Auto (Bld)Ordered By: Farhad Lashonda on 10-85-5494Jgxjphsly/100 WBC (Bld)N/[facility] WestMonocytes/100 WBC Manual cnt (Bld) Ordered By: Farhad Lashonda on 17-89-0652Cnzfvdepk/100 WBC (Bld)5 %2-11[facility] HospitalNeutrophils Auto (Bld) [#/Vol]Ordered By: Farhad Lashonda on 66-44-3282Vxhezmzlacs (Bld) [#/Vol]N/[facility] Neutrophils/100 WBC Auto (Bld)Ordered By: Farhad Lashonda on 06-11-2022 Neutrophils/100 WBC (Bld)N/[facility] WestNucleated erythrocytes [Presence] in Blood by Automated countOrdered By: Farhad Lashonda on 36-55-7760Mjfrvynvm RBC Auto Ql (Bld)N/[facility] Platelet adequacy [Presence] in Blood by Light microscopyOrdered By: Farhad Lashonda on 74-03-6366Tycgbrxaz LM Ql (Bld)NormalNoMorrow County HospitalPlatelet mean volume Auto (Bld) [Entitic vol]Ordered By: Farhad Lashonda on 64-51-0168Naxoelgm mean volume (Bld) [Entitic vol]8.2 fL6.3-10.7FCherrington HospitalPlatelet morphology finding [Identifier] in BloodOrdered By: FarhadMerchant on 76-69-7729Sohzzbhc morphology finding Nom (Bld)NormalNoKettering Health MiamisburgPlatelets Auto (Bld) [#/Vol]Ordered By: Farhad Lashonda on 02-52-2758Myxzlpdyi (Bld) [#/Vol]165 10*3/vJ290-081RhvanxpmhGalion Community HospitalPolychromasia [Presence] in Blood by Light microscopyOrdered By: Farhad Gallego on 48-49-3544Tdifabtlosrnk LM Ql (Bld)[facility] Medical CenterRB Auto (Bld) [#/Vol]Ordered By: Farhad Gallego on 36-24-2937SUS (Bld) [#/Vol]3.80 10*6/uL3.60-5.00[facility] HospitalRB morphologyOrdered By: Farhad Gallego on 73-01-5332QVO morphology finding Nom (Bld) N/AFSelect Medical [facility] Clinic Rehabilitation Hospital, Avonegmented neutrophils/100 WBC Manual cnt (Bld)Ordered By: Farhad Gallego on 76-07-9546Gpznvvwvz neutrophils/100 WBC (Bld)32 %50-70[facility] HospitalWBC Auto (Bld) [#/Vol]Ordered By: Farhad Gallego on 03-29-9095ONZ (Bld) [#/Vol]5.0 10*3/uL3.8-11.6FCherrington HospitalActivated partial thromboplastin time (aPTT) in platelet poor plasma by coagulation aOrdered By: Jean Jett on 98-10-3782iNWF Coag (PPP) [Time]29.8 s25.1-36.5FCherrington HospitalAnisocytosis LM Ql (Bld) Ordered By: Jean Jett on 19-58-0014Jhldwhhhimiv Ql (Bld)[facility] Medical CenterBasophils Auto (Bld) [#/Vol]Ordered By: Jean Jett on 84-63-4934Chhcfnbym (Bld) [#/Vol]0.1 10*3/uL0.0-0.2FCherrington HospitalBasophils/100 WBC Auto (Bld)Ordered By: Jean Jett on 06-10-2022 Basophils/100 WBC (Bld)1.8 %.[facility] HospitalBilirubin Test strip Ql (U)Ordered By: Jean Jett on 31-17-0791Tcxqrlwby Ql (U)Negative NegativeGalion Community HospitalCT biopsyOrdered By: Jean Jett on 64-40-2116Saskjcsohmm [Mass/Vol]380 mg/vZ781-867TulbmxtqcGalion Community HospitalCalcium [Mass/volume] in Serum or PlasmaOrdered By: Jean Jett on 18-52-8195Msbpynu [Mass/Vol]8.6 mg/dL8.2-10.2FCherrington Hospital Carbon dioxide, total [Moles/volume] in Serum or PlasmaOrdered By: Jean Jett on 77-13-2921IW7 [Moles/Vol]23.3 mmol/L22.0-30.0[facility] HospitalChloride [Moles/volume] in Serum or PlasmaOrdered By: Jean Jett on 07-38-7055Kmsvhctz [Moles/Vol]106 mmol/I14-234TfisfdpjdGalion Community Hospital Color Auto (U)Ordered By: Jean Jett on 24-76-8993Ztrxw (U)YellowYellow [facility] HospitalCreatine kinase [Enzymatic activity/volume] in Serum or PlasmaOrdered By: Jean Jett on 49-29-1245CW [Catalytic activity/Vol] 100 U/J80-519EqpqrtgxxGalion Community HospitalCreatinine and Glomerular filtration rate.predicted panel (S/P/Bld)Ordered By: Jean Jett on 06-10-2022 Creatinine [Mass/Vol]0.71 mg/dL0.44-1.03[facility] Eosinophils Auto (Bld) [#/Vol]Ordered By: Jean Jett on 94-22-2337Cquulxpguqa (Bld) [#/Vol]0.3 10*3/uL0.0-0.45[facility] HospitalEosinophils/100 WBC Auto (Bld)Ordered By: Jean Jett on 80-75-0479Syetkfvvhvr/100 WBC (Bld) 5.0 %.[facility] HospitalErythrocyte distribution width Auto (RBC) [Ratio]Ordered By: Jean Jett on 03-64-7433Sjlkimbonww distribution width (RBC) [Ratio]24.6 %11.9-15.3FCherrington HospitalEstimated glomerular filtration rate (GFR) non- AmericanOrdered By: Jean Jett on 22-85-7342VCB/1.73 sq M.predicted among non-blacks MDRD (S/P/Bld) [Vol rate/Area]> 60 mL/MinGalion Community HospitalFecal occult blood detection by immunochemistryOrdered By: Jean Jett on 06-10-2022 Hemoglobin.gastrointestinal Ql (Stl)[facility] HospitalGlucose [Mass/volume] in Serum or PlasmaOrdered By: Jean Jett on 08-01-0548Blbcjtg [Mass/Vol]94 mg/fB21-798OrdvxhdpaGalion Community HospitalComment on above:ADA recommended reference rangeRandom Glucose Reference Range is dependent on time and content of last meal. Glucose of more than 200 mg/dL in a nonstressed, ambulatory subject supports the diagnosisof Diabetes Mellitus.HCG ( test) IA.rapid Ql (U)Ordered By: Jean Jett on 58-33-4237PAV ( test) Ql (U)NegativeGalion Community HospitalHematocrit Auto (Bld) [Volume fraction]Ordered By: Jean Jett on 18-87-4731Sfreolfvlm (Bld) [Volume fraction]23.8 %34.0-46.4FCherrington HospitalHemoglobin [Mass/volume] in BloodOrdered By: Jean Jett on 83-70-6159Mrlohjfadt (Bld) [Mass/Vol]7.3 g/dL11.8-15.4FCherrington HospitalHypochromia LM Ql (Bld)Ordered By: Jean Jett on 98-38-6729Ksaspmytdfx Ql (Bld)MarkedGalion Community HospitalIron [Mass/volume] in Serum or PlasmaOrdered By: Jean Jett on 30-65-1049Bsyq [Mass/Vol]25 ug/vR57-211GuzcckjnfGalion Community HospitalIron binding capacity [Mass/volume] in Serum or PlasmaOrdered By: Jean Jett on 14-97-8780Nxhi binding capacity [Mass/Vol]532 ug/eA311-416UefbnwdipGalion Community HospitalIron saturation [Mass Fraction] in Serum or PlasmaOrdered By: Jean Jett on 09-49-7711Vjps saturation [Mass fraction]4.7 %20-50[facility] HospitalKetones Auto test strip (U) [Mass/Vol]Ordered By: Jean Jett on 03-01-6027Jjuknio (U) [Mass/Vol]NegativeNegativeGalion Community HospitalLaboratory - Chemistry and Chemistry - challengeOrdered By: Jean Jett on 79-83-4575Bumpyaapm [Mass/Vol]1.9 mg/dL1.6-2.6FCherrington HospitalNatriuretic peptide B (Bld) [Mass/Vol]23.0 pg/mL5-100[facility] HospitalLaboratory - CoagulationOrdered By: Jean Jett on 60-21-8621XU Coag (PPP) [Time]12.9 s9.0-12.9[facility] Leukocytes [#/volume] corrected for nucleated erythrocytes in Blood by Automated counOrdered By: Jean Jett on 26-75-2857NPS corrected for nucl RBC Auto (Bld) [#/Vol]5.3 10*3/uL3.8-11.6FCherrington HospitalLymphocytes Auto (Bld) [#/Vol]Ordered By: Jean Jett on 13-90-4698Rrwlrawqxdp (Bld) [#/Vol]2.2 10*3/uL1.00-4.8[facility] HospitalLymphocytes/100 WBC Auto (Bld) Ordered By: Jean Jett on 16-90-1843Cvvmjxolwsn/100 WBC (Bld)41.3 %.[facility] HospitalMCH Auto (RBC) [Entitic mass]Ordered By: Jean Jett on 11-20-9399RMF (RBC) [Entitic mass]19.7 pg24.7-34.3FCherrington HospitalMCHC Auto (RBC) [Mass/Vol]Ordered By: Jean Jett on 24-78-7814EESO (RBC) [Mass/Vol]30.6 g/dL32.0-35.0[facility] HospitalMCV Auto (RBC) [Entitic vol]Ordered By: Jean Jett on 54-80-9463VCF (RBC) [Entitic vol]64.5 tA50-066QaursikxzGalion Community HospitalMicrocytes LM Ql (Bld)Ordered By: Jean Jett on 17-77-0892Wovgcfpbfj Ql (Bld)MarkedGalion Community HospitalMonocyte distribution width [Entitic volume] in Blood by AutomatedOrdered By: Jean Jett on 53-58-2219Vnakmgjo distribution width Auto (Bld) [Entitic vol]17.54 %0.00-20.00[facility] HospitalMonocytes Auto (Bld) [#/Vol]Ordered By: Jean Jett on 51-41-2267Zbzaxoksp (Bld) [#/Vol]0.4 10*3/uL 0.0-0.8[facility] HospitalMonocytes/100 WBC Auto (Bld)Ordered By: Jean Jett on 47-04-1669Gdkcictiw/100 WBC (Bld)6.8 %.[facility] HospitalNeutrophils Auto (Bld) [#/Vol]Ordered By: Jean Jett on 09-31-9816Qmjeiszutey (Bld) [#/Vol]2.4 10*3/uL1.8-7.7FCherrington HospitalNeutrophils/100 WBC Auto (Bld)Ordered By: Jean Jett on 06-10-2022 Neutrophils/100 WBC (Bld)45.1 %.[facility] HospitalNitrite Test strip Ql (U)Ordered By: Jean Jett on 47-58-8193Oqipwkc Ql (U)NegativeNegative [facility] HospitalNo Panel InformationOrdered By: Jean Jett on 79-44-8627Bdhobydys GFR ()> 60 mL/MinGalion Community HospitalComment on above:GFR estimated reference range: According to KDOQI guidelines, <60 ml/min/1.73m2 is sufficient todiagnose a patient with chronic kidney disease.Pharmacy Creatinine Clearance (Ocsy714.49[facility] HospitalNucleated erythrocytes [Presence] in Blood by Automated count Ordered By: Jean Jett on 01-72-5270Wqdapmgmn RBC Auto Ql (Bld)0.1 /100{WBC} 0-0.5FCherrington HospitalOvalocyte detectionOrdered By: Jean Jett on 21-67-6900Rcxaeooqnw LM Ql (Bld)SlightGalion Community Hospital Platelet adequacy [Presence] in Blood by Light microscopyOrdered By: Jean Jett on 10-45-8358Jlnearkxh LM Ql (Bld)NormalNormGalion Community HospitalPlatelet mean volume Auto (Bld) [Entitic vol]Ordered By: Jean Jett on 18-01-2270Ywuifgts mean volume (Bld) [Entitic vol]8.3 fL6.3-10.7FCherrington HospitalPlatelet morphology finding [Identifier] in BloodOrdered By: Jean Jett on 02-30-5691Uzillffb morphology finding Nom (Bld)NormalNormal [facility] HospitalPlatelet poor plasma international normalized ratio (INR) by coagulation assay (relatOrdered By: Jean Jett on 10-62-7349DKU Coag (PPP) [Relative time]1.1 {INR}[facility] HospitalComment [...] Auto (Bld) [#/Vol]Ordered By: Jean Jett on 96-92-2899Mvqkwjnra (Bld) [#/Vol]202 10*3/sD647-279MjvtxugwiGalion Community HospitalPoikilocytosis [Presence] in Blood by Light microscopyOrdered By: Jean Jett on 96-94-5122Bhpfxvuhpglvyh LM Ql (Bld)[facility] TrumbullPolychromasia [Presence] in Blood by Light microscopyOrdered By: Jean Jett on 31-11-0818Vxfkogvberkdw LM Ql (Bld)[facility] TrumbullPotassium [Moles/volume] in Serum or PlasmaOrdered By: Jean Jett on 83-10-1359Tiybiyxdx [Moles/Vol]4.1 mmol/L3.5-5.1FCherrington HospitalProtein Auto test strip (U) [Mass/Vol]Ordered By: Jean Jett on 37-02-5775Mahsuiw (U) [Mass/Vol]NegativeNegativeGalion Community HospitalRBC Auto (Bld) [#/Vol]Ordered By: Jean Jett on 49-71-4151VYC (Bld) [#/Vol]3.69 10*6/uL3.60-5.00[facility] morphology Ordered By: Jean Jett on 50-15-8365SRC morphology finding Nom (Bld)N/A [facility] Centererum or plasma anion gap determinationOrdered By: Jean Jett on 77-53-0613Suijh gap [Moles/Vol]10.8 mmol/L6.0-15.0[facility] Centerodium [Moles/volume] in Serum or PlasmaOrdered By: Jean Jett on 82-54-4841Bcpvbm [Moles/Vol]136 mmol/M814-660IjxsmjazlSouthern Ohio Medical Centerpecific gravity Auto test strip (U) [Rel density]Ordered By: Jean Jett on 57-86-5959Mtsourpn gravity (U) [Rel density]1.0101.001-1.030 [facility] HospitalTarget cellsOrdered By: Jean Jett on 95-23-6919Mjkuzl cells LM Ql (Bld)[facility] Teardrop cell detectionOrdered By: Jean Jett on 79-16-9620Klkthlnkfj LM Ql (Bld)[facility] TrumbullTroponin I.cardiac [Mass/volume] in Serum or Plasma by High sensitivity methodOrdered By: Jean Jett on 06-10-2022 Troponin I.cardiac High sensitivity method [Mass/Vol]< 3 pg/mL0-15[facility] HospitalUrea nitrogen [Mass/volume] in Serum or PlasmaOrdered By: Jean Jett on 42-74-9503Hshl nitrogen [Mass/Vol]9 mg/dL9[facility] HospitalUrine clarity by refractometry automatedOrdered By: Jean Jett on 15-25-5561Zsbfbqx Refractometry automated (U)ClearClearFCherrington HospitalUrine glucose measurement by automated test strip (mass/volume) Ordered By: Jean Jett on 91-09-5429Qyauvkz Auto test strip (U) [Mass/Vol] Normal mg/dLNoMorrow County HospitalUrine hemoglobin detection by automated test stripOrdered By: Jean Jett on 71-05-5880Sysavtidfi Auto test strip Ql (U)NegativeNegOhioHealth Doctors HospitalUrine leukocyte esterase detection by automated test stripOrdered By: Jean Jett on 06-10-2022 Leukocyte esterase Auto test strip Ql (U)NegativeNegOhioHealth Doctors HospitalUrobilinogen Auto test strip (U) [Mass/Vol]Ordered By: Jean Jett on 28-31-9057Nsycygqxzgrh (U) [Mass/Vol]Normal mg/dLNoMorrow County HospitalWBC Auto (Bld) [#/Vol]Ordered By: Jean Jett on 55-13-2441LVY (Bld) [#/Vol]5.3 10*3/uL3.8-11.6FCherrington Hospital pH Auto test strip (U)Ordered By: Jean Jett on 45-25-5563yR (U)5.5 [pH] 5.0-9.0[facility] HospitalAlkaline phosphatase [Enzymatic activity/volume] in Serum or PlasmaOrdered By: Julieta Jefferson on 81-56-0747HPJ [Catalytic activity/Vol]39 U/B99-02VjiyxfazpGalion Community HospitalAnisocytosis LM Ql (Bld)Ordered By: Julieta Jefferson on 65-60-6305Fnmdnhnsoraz Ql (Bld)Marked [facility] HospitalAspartate aminotransferase [Enzymatic activity/volume] in Serum or PlasmaOrdered By: Julieta Jefferson on 44-27-4608BDW [Catalytic activity/Vol]15 U/Z62-31FnxjjmsjuGalion Community HospitalBasophils Auto (Bld) [#/Vol]Ordered By: Julieta Jefferson on 65-47-2213Qkkvfriki (Bld) [#/Vol] 0.1 10*3/uL0.0-0.2FCherrington HospitalBasophils/100 WBC Auto (Bld) Ordered By: Julieta Jefferson on 32-34-6797Apwpmkwif/100 WBC (Bld)1.4 %.[facility] HospitalBody fluid albumin measurement (mass/volume)Ordered By: Julieta Jefferson on 85-35-7030Lzjqerr (Body fld) [Mass/Vol]4.1 g/dL3.2-5.5FCherrington HospitalCalcium [Mass/volume] in Serum or PlasmaOrdered By: Julieta Jefferson on 15-51-0770Tmunibd [Mass/Vol]9.0 mg/dL8.2-10.2FCherrington HospitalCarbon dioxide, total [Moles/volume] in Serum or PlasmaOrdered By: Julieta Jefferson on 10-95-3053GW0 [Moles/Vol]23.3 mmol/L22.0-30.0[facility] HospitalCholesterol [Mass/volume] in Serum or PlasmaOrdered By: Julieta Jefferson on 21-33-9201Tywhdjhoidc [Mass/Vol]137 mg/tC464-895FuwxutkuoGalion Community HospitalComment on above:Chol less than 200 mg/dl low riskChol 201-239 mg/dl borderline riskChol 240 mg/dl and greater high riskCholesterol in LDL Calc [Mass/Vol]Ordered By: Julieta Jefferson on 56-95-7076Bgwayirmjgr in LDL [Mass/Vol]72 mg/dL0-100[facility] HospitalComment on above:LDL ATP III CLASSIFICATIONLDL less than 100 mg/dL OptimalLDL 100-129 mg/dL Near or above tagpisuROX681-571 mg/dL Borderline highLDL 160-189 mg/dL HighLDL greater than 189 mg/dL Very highCholesterol in VLDL Calc [Mass/Vol]Ordered By: Julieta Jefferson on 85-95-8543Whqlvtuwkao in VLDL [Mass/Vol]9 mg/dLGalion Community HospitalCreatinine and Glomerular filtration rate.predicted panel (S/P/Bld)Ordered By: Julieta Jefferson on 05-00-7373Xckysgtmlu [Mass/Vol]0.59 mg/dL0.44-1.03[facility] HospitalEosinophils Auto (Bld) [#/Vol]Ordered By: Julieta Jefferson on 93-35-9387Cgnizvystlw (Bld) [#/Vol]0.3 10*3/uL0.0-0.45[facility] HospitalEosinophils/100 WBC Auto (Bld)Ordered By: Julieta Jefferson on 06-09-2022 Eosinophils/100 WBC (Bld)6.8 %.[facility] HospitalErythrocyte distribution width Auto (RBC) [Ratio]Ordered By: Julieta Jefferson on 06-09-2022 Erythrocyte distribution width (RBC) [Ratio]24.5 %11.9-15.3FCherrington HospitalEstimated glomerular filtration rate (GFR) non- Ordered By: Julieta Jefferson on 44-85-4264NAS/1.73 sq M.predicted among non-blacks MDRD (S/P/Bld) [Vol rate/Area]> 60 mL/MinGalion Community Hospital Globulin Calc (S) [Mass/Vol]Ordered By: Julieta Jefferson on 45-13-9836Hdzydeqo (S) [Mass/Vol]2.3 g/dLGalion Community HospitalGlucose mean value [Mass/volume] in Blood Estimated from glycated hemoglobinOrdered By: Julieta Jefferson on 72-03-5326Htdlskv glucose Estimated from glycated hemoglobin (Bld) [Mass/Vol]97 mg/dLGalion Community HospitalHematocrit Auto (Bld) [Volume fraction]Ordered By: Julieta Jefferson on 51-71-6732Ekpgzznuvm (Bld) [Volume fraction]26.0 %34.0-46.4FCherrington HospitalHemoglobin A1c percentageOrdered By: Julieta Jefferson on 70-98-1575NzX7s (Bld) [Mass fraction]5.0 % 4.3-5.6FCherrington HospitalComment on above:Increased risk for diabetes: 5.7 - 6.4diabetes: >6.4glycemic control for adults with diabetes: &l t;7.0Hemoglobin [Mass/volume] in BloodOrdered By: Julieta Jefferson on 06-09-2022 Hemoglobin (Bld) [Mass/Vol]7.8 g/dL11.8-15.4FCherrington Hospital Hypochromia LM Ql (Bld)Ordered By: Julieta Jefferson on 77-94-8060Olzhletgqfv Ql (Bld) ModerateGalion Community HospitalLeukocytes [#/volume] corrected for nucleated erythrocytes in Blood by Automated counOrdered By: Julieta Jefferson on 25-85-5720FOH corrected for nucl RBC Auto (Bld) [#/Vol]4.6 10*3/uL3.8-11.6 [facility] HospitalLymphocytes Auto (Bld) [#/Vol]Ordered By: Julieta Jefferson on 13-15-5664Aupweadinyo (Bld) [#/Vol]2.0 10*3/uL1.00-4.8[facility] HospitalLymphocytes/100 WBC Auto (Bld)Ordered By: Julieta Jefferson on 22-94-8849Qqhdzmtbjag/100 WBC (Bld)44.2 %.[facility] HospitalMCH Auto (RBC) [Entitic mass]Ordered By: Julieta Jefferson on 65-25-1358QMC (RBC) [Entitic mass]19.7 pg24.7-34.3FCherrington HospitalMCHC Auto (RBC) [Mass/Vol]Ordered By: Julieta Jeffesron on 05-67-9144CLQQ (RBC) [Mass/Vol]30.2 g/dL 32.0-35.0[facility] HospitalMCV Auto (RBC) [Entitic vol]Ordered By: Julieta Jefferson on 09-05-3625AMD (RBC) [Entitic vol]65.3 kZ46-518FcwzhmzbcGalion Community HospitalMicrocytes LM Ql (Bld)Ordered By: Julieta Jefferson on 52-00-1951Tqzpozykow Ql (Bld)MarkedGalion Community HospitalMonocytes Auto (Bld) [#/Vol]Ordered By: Julieta Jefferson on 05-04-4699Xxlsokqra (Bld) [#/Vol] 0.4 10*3/uL0.0-0.8[facility] HospitalMonocytes/100 WBC Auto (Bld) Ordered By: Julieta Jefferson on 08-39-0533Jzkwujbgc/100 WBC (Bld)8.9 %.[facility] HospitalNeutrophils Auto (Bld) [#/Vol]Ordered By: Julieta Jefferson on 68-93-0089Xihfqnovepu (Bld) [#/Vol]1.8 10*3/uL1.8-7.7FCherrington HospitalNeutrophils/100 WBC Auto (Bld)Ordered By: Julieta Jefferson on 06-09-2022 Neutrophils/100 WBC (Bld)38.7 %.[facility] HospitalNo Panel InformationOrdered By: Julieta Jefferson on 89-21-1186Eogqieenn GFR () > 60 mL/MinGalion Community HospitalComment on above:GFR estimated reference range: According to KDOQI guidelines, <60 ml/min/1.73m2 is sufficient todiagnose a patient with chronic kidney disease.Pharmacy Creatinine Clearance (ChemN/[facility] - WestNucleated erythrocytes [Presence] in Blood by Automated countOrdered By: Julieta Jefferson on 49-97-2315Jbrpumjbc RBC Auto Ql (Bld)0.1 /100{WBC}0-0.5FCherrington HospitalPlatelet adequacy [Presence] in Blood by Light microscopyOrdered By: Julieta Jefferson on 06-09-2022 Platelets LM Ql (Bld)NormalJoint Township District Memorial HospitalPlatelet mean volume Auto (Bld) [Entitic vol]Ordered By: Julieta Jefferson on 72-67-5667Pjsfjvku mean volume (Bld) [Entitic vol]8.2 fL6.3-10.7FCherrington Hospital Platelet morphology finding [Identifier] in BloodOrdered By: Julieta Jefferson on 26-51-7530Hbhxsozx morphology finding Nom (Bld)NormalNoMorrow County HospitalPlatelets Auto (Bld) [#/Vol]Ordered By: Julieta Jefferson on 06-09-2022 Platelets (Bld) [#/Vol]200 10*3/bT702-884ElfukcaumGalion Community Hospital Poikilocytosis [Presence] in Blood by Light microscopyOrdered By: Julieta Jefferson on 93-73-4740Lvlwtzjbtprreg LM Ql (Bld)[facility] Polychromasia [Presence] in Blood by Light microscopyOrdered By: Julieta Jefferson on 77-74-5530Rlbkrszvvjttv LM Ql (Bld)ModerateGalion Community Hospital Protein [Mass/volume] in Serum or PlasmaOrdered By: Julieta Jefferson on 06-09-2022 Protein [Mass/Vol]6.4 g/dL6.1-7.9[facility] HospitalRB Auto (Bld) [#/Vol]Ordered By: Julieta Jefferson on 11-55-4171ECH (Bld) [#/Vol]3.97 10*6/uL 3.60-5.00[facility] HospitalRB morphologyOrdered By: Julieta Jefferson on 04-71-9175PMX morphology finding Nom (Bld)N/AFSelect Medical Cleveland Clinic Rehabilitation Hospital, Avonchistocytes [Presence] in Blood by Light microscopyOrdered By: Julieta Jefferson on 51-08-1907Icvilsadhrbb LM Ql (Bld)[facility] Centererum or plasma alanine aminotransferase measurement without P-5'-P (enzymatic activiOrdered By: Julieta Jefferson on 69-94-2357ODP No additional P-5'-P [Catalytic activity/Vol]14 U/S87-70QenvlfyylSouthern [facility] Medical Centererum or plasma albumin/globulin mass ratioOrdered By: Julieta Jefferson on 06-09-2022 Albumin/Globulin [Mass ratio]1.8 {ratio}[facility] Centererum or plasma anion gap determinationOrdered By: Julieta Jefferson on 59-81-7681Nqlmj gap [Moles/Vol]11.5 mmol/L6.0-15.0[facility] Centererum or plasma calcitriol measurement (mass/volume)Ordered By: Julieta Jefferson on ,25- dihydroxyvitamin D3 [Mass/Vol]60.5 pg/mL24.8-81.5FCherrington HospitalComment on above:Performed at: - Lab[address] [id number] Director: Jon Horton MD, Phone: [phone] or plasma chloride measurement (moles/volume)Ordered By: Julieta Jefferson on 45-00-6525Wmmwehva [Moles/Vol]106 mmol/V03-166DzwnesxhnGalion Community Hospital Serum or plasma glucose measurement (mass/volume)Ordered By: Julieta Jefferson on 52-52-6462Cryryit [Mass/Vol]78 mg/rW06-829LywunjifvGalion Community Hospital Comment on above:ADA recommended reference rangeRandom Glucose Reference Range is dependent on time and content of last meal. Glucose of more than 200 mg/dL in a nonstressed, ambulatory subject supports the diagnosisof Diabetes Mellitus. Serum or plasma high density lipoprotein (HDL) cholesterol measurementOrdered By: Julieta Jefferson on 12-87-0420Lxzihwxfbwt in HDL [Mass/Vol]56 mg/xR15-01DmzwjpfdzGalion Community HospitalComment on above:HDL CHOL ATP-III CLASSIFICATION Cardiovascular RiskHDL > or equal to 60 mg/dL LOWHDL < 40 mg/dL HIGHSerum or plasma potassium measurement (moles/volume)Ordered By: Julieta Jefferson on 06-09-2022 Potassium [Moles/Vol]3.8 mmol/L3.5-5.1FSelect Medical Cleveland Clinic Rehabilitation Hospital, Avonerum or plasma sodium measurement (moles/volume)Ordered By: Julieta Jefferson on 06-09-2022 Sodium [Moles/Vol]137 mmol/G446-604PynhfceexSouthern Ohio Medical Centererum or plasma total bilirubin measurement (mass/volume)Ordered By: Julieta Jefferson on 00-19-7928Aidifvkxl [Mass/Vol]0.3 mg/dL0.3-1.2FCherrington Hospital Serum or plasma total cholesterol/high density lipoprotein (HDL) cholesterol mass ratOrdered By: Julieta Jefferson on 84-63-3605Mslhqsjwcng.total/Cholesterol in HDL [Mass ratio]2.4 {ratio}<5.0[facility] DL <= 0.005 mIU/L QnOrdered By: Julieta Jefferson on 59-37-0853XJS Qn4.10 m[IU]/L0.45-5.33 [facility] HospitalTeardrop cell detectionOrdered By: Julieta Jefferson on 21-91-5440Uiluesibox LM Ql (Bld)SlightGalion Community Hospital Triglyceride [Mass/volume] in Serum or PlasmaOrdered By: Julieta Jefferson on 70-45-5662Fzkeeekahxuj [Mass/Vol]45 mg/rT25-529QchxzavonGalion Community Hospital Comment on above:TRIG ATP III CLASSIFICATIONTRIG less than 150 mg/dL NormalTRIG 150-199 mg/dL Borderline highTRIG 200-500 mg/dL High TRIG greater than 500 mg/dL Very highStandard traceable to the Center for Disease Conrtrol and Prevention (CDC) test method.Urea nitrogen [Mass/volume] in Serum or PlasmaOrdered By: Julieta Jefferson on 27-84-2464Owry nitrogen [Mass/Vol]6 mg/dL9-[facility] HospitalWBC Auto (Bld) [#/Vol]Ordered By: Julieta Li on 62-59-0212RPQ (Bld) [#/Vol]4.6 10*3/uL3.8-11.6FCherrington HospitalUrine 10 SGon 24-96-5858Ewpokwe DL <= 20 mg/L (U) [Mass/Vol]NegativeNortShoopi Other pH (U)7.0 [pH][facility] Other urine 10 SGNegativeBunkspeed Other Urine 10 SG1.020NoBunkspeed Other urine 10 SGlargeNoBunkspeed Other Urine Cultureon 01-23-1524Slrcepxr identified Cx Nom (U)[employer] Other urine culture routineOrdered By: Amanda Ford on 66-48-9614Sktlfemx identified Cx Nom (U)2 DaysGalion Community HospitalActivated partial thromboplastin time (aPTT) in platelet poor plasma by coagulation aOrdered By: Phu Hdz on 26-05-0435nAOA Coag (PPP) [Time] 30.4 s25.1-36.5FCherrington HospitalAutomated erythrocytes count in urine sediment (number/area)Ordered By: Jean Jett on 73-12-4628DNN Auto (Urine sed) [#/Area]Innumerable [HPF]0-4FCherrington Hospital Automated leukocytes count in urine sediment (number/area)Ordered By: Jean Jett on 88-28-5873UIB Auto (Urine sed) [#/Area]3-4 [HPF]0-4FCherrington HospitalAutomated urine sediment calcium oxalate crystal count by microscopy (number/high powOrdered By: Jean Jett on 56-89-5659Mqwhmes oxalate crystals LM.HPF (Urine sed) [#/Area]1+ [HPF][facility] Basophils Auto (Bld) [#/Vol]Ordered By: Jean Jett on 55-61-9603Zjtixslau (Bld) [#/Vol]0.0 10*3/uL0.0-0.2FCherrington HospitalBasophils/100 WBC Auto (Bld)Ordered By: Jean Jett on 24-60-7438Xfmrpjxjh/100 WBC (Bld)0.5 % .Galion Community HospitalBilirubin Test strip Ql (U)Ordered By: Jean Jett on 26-34-8206Nfsquqwwb Ql (U)1+NegativeGalion Community Hospital Casts typing in urine sediment by light microscopyOrdered By: Jean Jett on 17-42-5039Stoqw LM Nom (Urine sed)None seen [LPF]None SeenGalion Community HospitalColor Auto (U)Ordered By: Jean eJtt on 16-11-7247Awarb (U)Red YellowGalion Community HospitalCreatinine and Glomerular filtration rate.predicted panel (S/P/Bld)Ordered By: Jean Jett on 33-21-7538Secsggxsey [Mass/Vol]0.68 mg/dL0.44-1.03Gal[facility] Community HospitalEosinophils Auto (Bld) [#/Vol]Ordered By: Jean Jett on 83-48-1728Sfqekldkijo (Bld) [#/Vol]0.2 10*3/uL0.0-0.45Gal[facility] HospitalEosinophils/100 WBC Auto (Bld) Ordered By: Jean Jett on 23-90-1340Erutoetrsyi/100 WBC (Bld)2.1 %.[facility] Community HospitalErythrocyte distribution width Auto (RBC) [Ratio]Ordered By: Jean Jett on 11-72-0071Vasoitqurgg distribution width (RBC) [Ratio]14.3 % 11.9-15.3FCherrington HospitalEstimated glomerular filtration rate (GFR) non- AmericanOrdered By: Jean Jett on 49-56-8991DQC/1.73 sq M.predicted among non-blacks MDRD (S/P/Bld) [Vol rate/Area]> 60 mL/MinGalion Community HospitalHCG ( test) IA.rapid Ql (U)Ordered By: Jean Jett on 29-30-8559LIU ( test) Ql (U)NegativeGalion Community HospitalHematocrit Auto (Bld) [Volume fraction]Ordered By: Jean Jett on 52-92-1883Vjubvlydbp (Bld) [Volume fraction]29.4 %34.0-46.4FCherrington HospitalHemoglobin [Mass/volume] in BloodOrdered By: Jean Jett on 14-27-6762Gyjvlrxlta (Bld) [Mass/Vol]9.9 g/dL11.8-15.4FCherrington HospitalKetones Auto test strip (U) [Mass/Vol]Ordered By: Jean Jett on 99-94-8067Icnpqgb (U) [Mass/Vol]NegativeNegativeGalion Community HospitalLaboratory - CoagulationOrdered By: Phu Hdz on 15-22-3314PK Coag (PPP) [Time]12.4 s9.0-12.9Gal[facility] HospitalLaboratory - UrinalysisOrdered By: Jean Jett on 54-01-2925Hgkcqvk casts LM Ql (Urine sed) None seen [LPF]0-8Gal[facility] Community HospitalLeukocytes [#/volume] corrected for nucleated erythrocytes in Blood by Automated counOrdered By: Jean Jett on 23-89-0951TDU corrected for nucl RBC Auto (Bld) [#/Vol]8.5 10*3/uL3.8-11.6FCherrington HospitalLymphocytes Auto (Bld) [#/Vol] Ordered By: Jean Jett on 57-12-0954Yehtljzosyl (Bld) [#/Vol]2.1 10*3/uL 1.00-4.8Gal[facility] HospitalLymphocytes/100 WBC Auto (Bld)Ordered By: Jean Jett on 49-97-6117Wwmakhpmrjf/100 WBC (Bld)25.2 %.[facility] HospitalH Auto (RBC) [Entitic mass]Ordered By: Jean Jett on 50-04-4700YPZ (RBC) [Entitic mass]28.8 pg24.7-34.3FCherrington HospitalMCHC Auto (RBC) [Mass/Vol]Ordered By: Jean Jett on 47-76-5260ZURK (RBC) [Mass/Vol]33.6 g/dL32.0-35.0Gal[facility] Community HospitalMCV Auto (RBC) [Entitic vol]Ordered By: Jean Jett on 95-68-1858ERV (RBC) [Entitic vol]85.7 wV33-204JydlclkvfGalion Community HospitalMonocyte distribution width [Entitic volume] in Blood by AutomatedOrdered By: Jean Jett on 57-93-9483Hfpczjrr distribution width Auto (Bld) [Entitic vol]14.20 %0.00-20.00Gal[facility] HospitalMonocytes Auto (Bld) [#/Vol]Ordered By: Jean Jett on 04-10-2022 Monocytes (Bld) [#/Vol]0.5 10*3/uL0.0-0.8[facility] Monocytes/100 WBC Auto (Bld)Ordered By: Jean Jett on 10-15-9588Pzsqplqdy/100 WBC (Bld)5.7 %.[facility] Community HospitalNeutrophils Auto (Bld) [#/Vol] Ordered By: Jean Jett on 54-99-9037Gahugijxgbs (Bld) [#/Vol]5.6 10*3/uL 1.8-7.7FCherrington HospitalNeutrophils/100 WBC Auto (Bld)Ordered By: Jean Jett on 01-06-7312Btnmbeyxnul/100 WBC (Bld)66.5 %.[facility] Community HospitalNitrite Test strip Ql (U)Ordered By: Jean Jett on 04-10-2022 Nitrite Ql (U)PositiveNegativeGalion Community HospitalNo Panel InformationOrdered By: Jean Jett on 57-23-9027Tdyphdhcj GFR ()> 60 mL/MinGalion Community HospitalComment on above:GFR estimated reference range: According to KDOQI guidelines, <60 ml/min/1.73m2 is sufficient todiagnose a patient with chronic kidney disease.Pharmacy Creatinine Clearance (Xjig720.39Galion Community HospitalNucleated erythrocytes [Presence] in Blood by Automated countOrdered By: Jean Jett on 04-10-2022 Nucleated RBC Auto Ql (Bld)0.0 /100{WBC}0-0.5FCherrington Hospital Platelet mean volume Auto (Bld) [Entitic vol]Ordered By: Jean Jett on 19-74-6203Jywxhbfz mean volume (Bld) [Entitic vol]6.9 fL6.3-10.7FCherrington HospitalPlatelet poor plasma international normalized ratio (INR) by coagulation assay (relatOrdered By: Phu Hdz on 46-86-0420JEH Coag (PPP) [Relative time]1.1 {INR}[facility]ion Community HospitalComment [...] Auto (Bld) [#/Vol]Ordered By: Jean Jett on 70-79-5621Hiwfxnrpm (Bld) [#/Vol]263 10*3/zG853-366MdyichfrxGalion Community HospitalProtein Auto test strip (U) [Mass/Vol]Ordered By: Jean Jett on 67-62-7605Ktmbmgs (U) [Mass/Vol]100 mg/dLNegativeGalion Community HospitalRBC Auto (Bld) [#/Vol]Ordered By: Jean Jett on 61-57-2236WBC (Bld) [#/Vol]3.43 10*6/uL 3.60-5.00[facility] Centererum or plasma anion gap determinationOrdered By: Jean Jett on 08-73-0489Wdgix gap [Moles/Vol]8.5 mmol/L6.0-15.0[facility] Centererum or plasma calcium measurement (mass/volume)Ordered By: Jean Jett on 16-50-0931Wkvigdf [Mass/Vol]8.6 mg/dL8.2-10.2FSelect Medical Cleveland Clinic Rehabilitation Hospital, Avonerum or plasma chloride measurement (moles/volume)Ordered By: Jean Jett on 04-10-2022 Chloride [Moles/Vol]106 mmol/Y67-712KhsgsmzxpSouthern Ohio Medical Centererum or plasma glucose measurement (mass/volume)Ordered By: Jean Jett on 04-10-2022 Glucose [Mass/Vol]99 mg/xE68-061SlhvrkqcvGalion Community HospitalComment on above:ADA recommended reference rangeRandom Glucose Reference Range is dependent on time and content of last meal. Glucose of more than 200 mg/dL in a nonstressed, ambulatory subject supports the diagnosisof Diabetes Mellitus.Serum or plasma potassium measurement (moles/volume)Ordered By: Jean Jett on 19-49-4654Mmuhaclay [Moles/Vol]3.6 mmol/L3.5-5.1FSelect Medical [facility] Clinic [facility] Hospital, Avonerum or plasma sodium measurement (moles/volume)Ordered By: Jean Jett on 92-94-3103Wfzkrd [Moles/Vol]138 mmol/I366-906FrullckpnSouthern Ohio Medical Centererum or plasma total carbon dioxide measurement (moles/volume)Ordered By: Jean Jett on 93-68-5773KH9 [Moles/Vol]27.1 mmol/L22.0-30.0[facility] Centererum or plasma urea nitrogen measurement (mass/volume)Ordered By: Jean Jett on 89-06-1278Sszo nitrogen [Mass/Vol]5 mg/dL9-23[facility] Centerpecific gravity Auto test strip (U) [Rel density]Ordered By: Jean Jett on 16-39-0139Lyneywrw gravity (U) [Rel density]1.0331.001-1.030 [facility] Centerquamous epithelial cells detection in urine sediment by light microscopyOrdered By: Jean Jett on 09-64-2397Narycdmemx cells.squamous LM Ql (Urine sed)3-4 [HPF]0-2FCherrington Hospital Urine bacteria detection by automated methodOrdered By: Jean Jett on 73-20-5411Uivwfyfv Auto Ql (U)None seenNone SeenGalion Community HospitalUrine clarity by refractometry automatedOrdered By: Jean Jett on 38-10-8695Beblobi Refractometry automated (U)TurbidClearFCherrington HospitalUrine culture routineOrdered By: Jean Jett on 04-10-2022 Bacteria identified Cx Nom (U)2 DaysGalion Community HospitalUrine glucose measurement by automated test strip (mass/volume)Ordered By: Jean Jett on 14-51-9344Zkkrddd Auto test strip (U) [Mass/Vol]Normal mg/dLWvumedicine Barnesville HospitalUrine hemoglobin detection by automated test stripOrdered By: Jean Jett on 67-89-4990Lygcosgujr Auto test strip Ql (U)3+ NegativeGalion Community HospitalUrine leukocyte esterase detection by automated test stripOrdered By: Jean Jett on 04-41-9890Cmckpnqof esterase Auto test strip Ql (U)2+NegativeGalion Community HospitalUrine sediment crystal identification by light microscopyOrdered By: Jean Jett on 04-10-2022 Crystals LM Nom (Urine sed)None seen [HPF][facility] Urobilinogen Auto test strip (U) [Mass/Vol]Ordered By: Jean Jett on 44-43-8832Cuvanqgnborp (U) [Mass/Vol]Normal mg/dLJoint Township District Memorial HospitalWBC Auto (Bld) [#/Vol]Ordered By: Jean Jett on 06-34-4573WOO (Bld) [#/Vol]8.5 10*3/uL3.8-11.6FCherrington HospitalpH Auto test strip (U)Ordered By: Jean Jett on 27-32-6362qP (U)5.5 [pH]5.0-9.0[facility] HospitalBasophils Auto (Bld) [#/Vol]Ordered By: PROVIDER TEMP on 47-21-7628Oqvqmogci (Bld) [#/Vol]0.0 10*3/uL0.0-0.2FCherrington HospitalBasophils/100 WBC Auto (Bld)Ordered By: PROVIDER TEMP on 04-08-2022 Basophils/100 WBC (Bld)0.4 %.[facility] HospitalEosinophils Auto (Bld) [#/Vol]Ordered By: PROVIDER TEMP on 82-05-9039Ojdmzykpxoz (Bld) [#/Vol]0.4 10*3/uL0.0-0.45[facility] HospitalEosinophils/100 WBC Auto (Bld) Ordered By: PROVIDER TEMP on 51-33-7553Ttexwhvvdyp/100 WBC (Bld)5.5 %.[facility] HospitalErythrocyte distribution width Auto (RBC) [Ratio]Ordered By: PROVIDER TEMP on 80-61-4501Rpdxnortapi distribution width (RBC) [Ratio]14.1 %11.9-15.3FCherrington HospitalHematocrit Auto (Bld) [Volume fraction]Ordered By: PROVIDER TEMP on 54-41-7896Geqdwbkwbf (Bld) [Volume fraction]33.9 %34.0-46.4FCherrington HospitalHemoglobin [Mass/volume] in BloodOrdered By: PROVIDER TEMP on 94-88-4231Qphgaraaox (Bld) [Mass/Vol]11.4 g/dL11.8-15.4FCherrington HospitalLeukocytes [#/volume] corrected for nucleated erythrocytes in Blood by Automated coun Ordered By: PROVIDER TEMP on 21-61-4152HRH corrected for nucl RBC Auto (Bld) [#/Vol]8.1 10*3/uL3.8-11.6FCherrington HospitalLymphocytes Auto (Bld) [#/Vol]Ordered By: PROVIDER TEMP on 35-31-2302Rtuxqevcksv (Bld) [#/Vol]2.3 10*3/uL1.00-4.8[facility] HospitalLymphocytes/100 WBC Auto (Bld) Ordered By: PROVIDER TEMP on 33-88-6579Jfpepzyfrzy/100 WBC (Bld)28.1 %.[facility] Community HospitalMCH Auto (RBC) [Entitic mass]Ordered By: PROVIDER TEMP on 40-22-0105NZF (RBC) [Entitic mass]29.0 pg24.7-34.3FCherrington HospitalMCHC Auto (RBC) [Mass/Vol]Ordered By: PROVIDER TEMP on 92-93-2878FMHJ (RBC) [Mass/Vol]33.7 g/dL32.0-35.0[facility] HospitalMCV Auto (RBC) [Entitic vol]Ordered By: PROVIDER TEMP on 53-89-9180GES (RBC) [Entitic vol]86.0 vI80-099LbphgmejzGalion Community HospitalMonocyte distribution width [Entitic volume] in Blood by AutomatedOrdered By: PROVIDER TEMP on 04-08-2022 Monocyte distribution width Auto (Bld) [Entitic vol]13.83 %0.00-20.00[facility] HospitalMonocytes Auto (Bld) [#/Vol]Ordered By: PROVIDER TEMP on 56-14-1494Fjdrjfopw (Bld) [#/Vol]0.5 10*3/uL0.0-0.8[facility] HospitalMonocytes/100 WBC Auto (Bld)Ordered By: PROVIDER TEMP on 04-08-2022 Monocytes/100 WBC (Bld)6.7 %.[facility] Community HospitalNeutrophils Auto (Bld) [#/Vol]Ordered By: PROVIDER TEMP on 34-96-8870Bvwxyqfoywz (Bld) [#/Vol]4.8 10*3/uL1.8-7.7FCherrington HospitalNeutrophils/100 WBC Auto (Bld) Ordered By: PROVIDER TEMP on 05-30-8426Zjapijvbqdo/100 WBC (Bld)59.3 %.[facility] HospitalNucleated erythrocytes [Presence] in Blood by Automated countOrdered By: PROVIDER TEMP on 77-14-1329Rkdjtvfdl RBC Auto Ql (Bld)0.2 /100{WBC}0-0.5FCherrington HospitalPlatelet mean volume Auto (Bld) [Entitic vol]Ordered By: PROVIDER TEMP on 62-96-2268Itteusfm mean volume (Bld) [Entitic vol]7.0 fL6.3-10.7FCherrington HospitalPlatelets Auto (Bld) [#/Vol]Ordered By: PROVIDER TEMP on 24-20-8169Roaftdbpf (Bld) [#/Vol]199 10*3/uL 150-450Gal[facility] HospitalRBC Auto (Bld) [#/Vol]Ordered By: PROVIDER TEMP on 42-84-2591LZI (Bld) [#/Vol]3.94 10*6/uL3.60-5.00[facility] HospitalWBC Auto (Bld) [#/Vol]Ordered By: PROVIDER TEMP on 43-86-4692UOD (Bld) [#/Vol]8.1 10*3/uL3.8-11.6FCherrington Hospital XR shoulder RT min 2V*on 89-16-8692RF shoulder RT min 2V*[facility] [employer] Other XR shoulder RT min 2V*[facility] [employer] Other XR shoulder RT min 2V*[address] [place] [address] [employer] Other XR shoulder RT min 2V*[place] [address] [employer] Other XR shoulder RT min 2V*[facility] [employer] Other XR shoulder RT min 2V*[facility] [employer] Other XR shoulder RT min 2V*Patient: Jaz Sanders MR#: [id number] [employer] Other XR shoulder RT min 2V*[address] [employer] Other XR shoulder RT min 2V*: 1995 Acct:[id number] [place] [employer] Other XR shoulder RT min 2V*Age/Sex: 27 / F ADM Date: 03/23/22[place] [employer] Other XR shoulder RT min 2V*[facility]: Type: [facility] [employer] Other XR shoulder RT min 2V*Attending Dr: Amanda Ford APRN, [facility] [employer] Other XR shoulder RT min 2V*Copies to: Amanda Ford APRN, [facility] [employer] Other XR shoulder RT min 2V*Ordering Provider: Amanda Ford APRN, [facility] [employer] Other XR shoulder RT min 2V*Date of Service: 03/23/22[place] [employer] Other XR shoulder RT min 2V* XR/XR shoulder RT min 2V*: Other chronic pain;Pain in right shoulderNor[place] [employer] Other XR shoulder RT min 2V*RIGHT SHOULDER - - 3 viewsNor[place] [employer] Other XR shoulder RT min 2V*CLINICAL HISTORY: Pain lateral to right shoulder for 6 months.[employer] Other XR shoulder RT min 2V*COMPARISON: [facility] [employer] Other XR shoulder RT min 2V*FINDINGS:[employer] Other XR shoulder RT min 2V*Minimal degenerative changes of the right AC joint. Glenohumeral joint is grossly unremarkable. [facility] [employer] Other XR shoulder RT min 2V*acute bony process.[place] [employer] Other XR shoulder RT min 2V* XR/XR shoulder RT min 2V*[employer] Other XR shoulder RT min 2V*IMPRESSION:[employer] Other XR shoulder RT min 2V*MINIMAL DEGENERATIVE CHANGES. NO ACUTE BONY PROCESS.[employer] Other XR shoulder RT min 2V*Impression dictated by: Sravan Dickinson Jr., D.O.03/23/2022 4:06 [facility] [employer] Other xr shoulder RT min 2V*Dictation Location: [address] [employer] Other xr shoulder RT min 2V*Transcribed By: [facility] 03/23/[address] [place] [address] [employer] Other xr shoulder RT min 2V*Dictated By: Sravan Dickinson Jr, DO 03/23/[address] [place] [address] [employer] Other xr shoulder RT min 2V*Signed By:[employer] Other xr shoulder RT min 2V*03/23/[address] [place] [address] [employer] Other Coding Summary.on 06-65-1871Hmdsah Summary. CD:[id number]:[id number]+PGhlYWQ+QT1XJFPxK16qpENvnG9AG8fPIO9BWFLTNZMFGX9VFZ4ky LJ9JDgtE8QdevVl [file] cHNl (more content not included)...[facility] HospitalHeart and Vascular Office/Clinic Noteon 99-40-7560Snwdf and Vascular Office/Clinic Note Chief Complaint Testing [...] after patient or guardian consented to allow [employer] to record this visit. ANAMARIA behavior support specialist and provider reviewed before signing. [...] Family History Bipolar: Sister. Depression: Mother and Grandparent.[facility] Memorial HospitalComment on above:Result Comment: Electronically Signed By: Jay DAVEY, Samir Rivera\.br\Date and Time Signed: 09/02/21 09:25 EDT\.br\Electronically Co-Signed By: Rissa Arias\.br\Date and Time Co-Signed: 09/01/21 17:11 EDTCoding Summary.on 39-91-3106Ejeuik Summary. CD:[id number]:[id number]+PGhlYWQ+SR4HZVTyZ47uwFNxbM2BI5qPBM3RXAYORGIWVE0FHV7sw QR4KRskT6HsywFj [file] cHNl (more content not included)...NormalUniversity Hospitals St. John Medical CenterConsent for Treatmenton 05-93-9079Lkmfuuc for Treatment [id number]#1.00CD:127NormFlower HospitalProgress Note-Physicianon 42-83-6665Tvseglwf Note-Physician [id number]#1.00CD:127NormFlower HospitalHolter Monitoron 34-36-6426Xolnlc Nbviacy51-HQNS HOLTER MONITOR ORDERING PHYSICIAN: Samir Christofferson, M.D. [...] READ BY: Mariam Salazar M.D. Dictated: 08/26/2021 [id number] Transcribed: 08/27/2021 cc:Samir Thompson M.D.[facility] HospitalComment on above: Result Comment: Electronically Signed By: Martin DAVEY, Mariam Galan\.br\Date and Time Signed: 08/27/21 10:21 EDTHolter Monitor [id number]#1.00CD:127NoMercy Health Defiance HospitalConsent for Treatmenton 57-66-1797Nxmsmzz for Treatment [id number]#1.00CD:127NoMercy Health Defiance HospitalCoding Summary.on 65-67-7663Konarq Summary. CD:266506UV:9309257XCt0bIx+PGhlYWQ+KA0TTHAcS71hkCHvgG8QQ9tMLK6XMYYYJOXFAM4JQW7ft TQ3PVfiT8IthcBq [file] cHNl (more content not included)...NormalAultman Orrville Hospitaltre EKG Tracingson 53-50-0056Hbwnho EKG Tracings [id number]#1.00CD:127[facility] HospitalConsent for Treatmenton 45-77-5281Cvienrv for Treatment [id number]#1.00CD:127[facility] HospitalCoding Summary.on 17-57-9914Rprbdu Summary. CD:456295RL:5187934AKf8iUs+PGhlYWQ+PO0VEVLdW72aaKScwR7UV4iSWB8EJYNNRVDLOY7RUA6lb HN2MTbeA4GrxwJd [file] cHNl (more content not included)...[facility] HospitalProgress Note-Physicianon 07-27-2079Axfnzsiy Note-Physician [id number]#1.00CD:127NormFlower HospitalHeart and Vascular Office/Clinic Noteon 70-72-3888Ajnhx and Vascular Office/Clinic NoteChief Complaint Bradycardia History [...] with exercise. She presented to [facility] 2 weeks ago for suspected nephrolithiasis [...] after patient or guardian consented to allow [employer] to record this visit. ANAMARIA behavior support specialist and provider reviewed before signing. [...] Tobacco Use:. Never Sm[place] (more content not included)...[facility] HospitalComment on above:Result Comment: Electronically Signed By: Samir Thompson MD\.br\Date and Time Signed: 07/27/21 10:44 EDT\.br\Electronically Co-Signed By: Rissa Arias\.br\Date and Time Co-Signed: 07/24/21 16:24 EDTConsent for Treatmenton 31-74-8647Xlyojtu for [id number]#1.00CD:[address] [place], [place] [address]Referrals Officeon 58-17-6196Evtaphtsf Office [id number]#1.00CD:127[facility] HospitalBASIC METABOLIC PANELon 63-59-9207Tnayk gap [Moles/Vol]8 mmol/LLow9 - 17 mmol/LMpremier health atrium medical centery Health- [place], KYBun/Cre RatioNOT REPORTEDMer Health- [place], KYCalcium [Mass/Vol]9.2 mg/dL8.6 - 10.4 mg/dLMercy Health- [place], KYChloride [Moles/Vol]105 mmol/L98 - 107 mmol/LMercy Health- [place], KYCO2 [Moles/Vol]26 mmol/L20 - 31 mmol/L [facility]- [place], KYCreatinine [Mass/Vol]0.67 mg/dL0.5 - 0.9 mg/dLMercy Health- [place], KYGFR >60>60 mL/minMercy Health- [place], KYGFR Non->60>60 mL/minMercy Health- [place], KYGFR/1.73 sq M predicted among non- blacks MDRD (S/P/Bld) [Vol rate/Area]NOT REPORTEDMercy Health- [place], KYGFR/1.73 sq M predicted among non-blacks MDRD (S/P/Bld) [Vol rate/Area][facility]- [place], [place] Comment on above:Average GFR for 20-29 years old: 116 mL/min/1.73sq m Chronic Kidney Disease: <60 mL/min/1.73sq m Kidney failure: <15 mL/min/1.73sq m eGFR calculated using average adult body mass. Additional eGFR calculator available at: http://www.MySocialCloud.com/multiple_crcl_2012.htm Glucose [Mass/Vol]99 mg/dL70 - 99 mg/dLKnox Community Hospital, KYInterpretation and review of laboratory resultsAbnormalKnox Community Hospital, KYPotassium [Moles/Vol]4.5 mmol/L3.7 - 5.3 mmol/LMWilson [address] Hospital, KYSodium [Moles/Vol]139 mmol/L135 - 144 mmol/[facility], KYUrea nitrogen [Mass/Vol]5 mg/dLLow6 - 20 mg/dLKnox Community Hospital, KYBasic Metabolic Profon 05-08-2020(cont.)[facility] CenterComment on above:Result Comment: Average GFR for 20-29 years old: 116 mL/min/1.73sq m Chronic Kidney Disease: <60 mL/min/1.73sq m Kidney failure: <15 mL/min/1.73sq m eGFR calculated using average adult body mass. Additional eGFR calculator available at: http://www.MySocialCloud.com/multiple_crcl_2012.htmPerformed By: #### CBC, PT, PTT, BMP #### [employer] [address] [place] [address] [phone] Deployment Specialist: Casey Marques MD #### RICKYT #### [facility] [address] [place] [address] Deployment Specialist: Dontae Ward gap [Moles/Vol]8 mmol/LLow9-17[facility] HospitalComment on above:Performed By: #### CBC, PT, PTT, BMP #### [facility] [address] [place] [address] Deployment Specialist: Casey Marques MD #### ANICOT #### [facility] [address] [place] [address] Deployment Specialist: XIN Wardalcium [Mass/Vol]9.2 mg/dLNormal8.6-10.4[facility] HospitalComment on above:Performed By: #### CBC, PT, PTT, BMP #### [facility] [address] [place] [address] [phone] Deployment Specialist: Casey Marques MD #### ANICOT #### [facility] [address] [place] [address] [phone] Deployment Specialist: XIN Wardhloride [Moles/Vol]105 mmol/BXnrtpc24-565GgprvFayette County Memorial HospitalComment on above:Performed By: #### CBC, PT, PTT, BMP #### [address] [phone] Deployment Specialist: Casey Marques MD #### ANICOT #### [facility] [address] [place] [address] [phone] Deployment Specialist: XIN WardO2 [Moles/Vol]26 mmol/HBsthyt14-16RlzzgFayette County Memorial HospitalComment on above:Performed By: #### CBC, PT, PTT, BMP #### [address] [phone] Deployment Specialist: Casey Marques MD #### ANICOT #### [facility] [address] [place] [id number] Deployment Specialist: XIN Wardreatinine [Mass/Vol]0.67 mg/dLNormal0.50-0.90 [facility] HospitalComment on above:Performed By: #### CBC, PT, PTT, BMP #### [facility] [address] [place] [address] [phone] Deployment Specialist: Casey Marques MD #### ANICOT #### [facility] [address] [place] [address] Deployment Specialist: Adolph Diaz MDGFR, Amer>60Normal>60[facility] Medical CenterComment on above:Performed By: #### CBC, PT, PTT, BMP #### [facility] [address] [place] [address] [phone] Deployment Specialist: Casey Marques MD #### ANICOT #### [facility] [address], [place] [id number] Deployment Specialist: Adolph Diaz MDGFR,non Amer>60Normal>60[facility] Medical CenterComment on above:Performed By: #### CBC, PT, PTT, BMP #### [facility] [address] [place] [address] [phone] Deployment Specialist: Casey Marques MD #### ANICOT #### [facility] [address] [place] [address] Deployment Specialist: Adolph Diaz MDGlucose [Mass/Vol]99 mg/lYQtuyjq92-82Qtfmm [facility] Medical CenterComment on above:Performed By: #### CBC, PT, PTT, BMP #### [facility] [address] [place] [address] [phone] Deployment Specialist: Casey Marques MD #### ANICOT #### [facility] [address] [place] [address] Deployment Specialist: Brianna Wardssium [Moles/Vol]4.5 mmol/LNormal3.7-5.3[facility] Medical CenterComment on above:Performed By: #### CBC, PT, PTT, BMP #### [facility] [address] [place] [address] [phone] Deployment Specialist: Casey Marques MD #### ANICOT #### [facility] [address] [place] [address] Deployment Specialist: Adolph Diaz, MDSodium [Moles/Vol]139 mmol/PCtnafr696-164XtlpzFayette County Memorial HospitalComment on above:Performed By: #### CBC, PT, PTT, BMP #### [facility] [address] [place] [address] Deployment Specialist: Casey Marques MD #### ANICOT #### [facility] [address], [place] [id number] Deployment Specialist: Adolph Diaz MDUrea nitrogen [Mass/Vol]5 mg/dLLow6-20F[facility] County [facility] HospitalComment on above:Performed By: #### CBC, PT, PTT, BMP #### [facility] [address] [place] [address] Deployment Specialist: Casey Marques MD #### ANICOT #### [facility] [address], [place] [id number] Deployment Specialist: ANTONIETA Ward/CRE JiOT REPORTEDNormal9-20[facility] Memorial HospitalComment on above:Performed By: #### CBC, PT, PTT, BMP #### [facility] [address] [place] [address] Deployment Specialist: Casey Marques MD #### ANICOT #### [facility] [address], [place] [id number] Deployment Specialist: JACINTO Wardtaging:NOT REPORTEDNormalFayette County Memorial HospitalComment on above:Performed By: #### CBC, PT, PTT, BMP #### [facility] [address] [place] [address] Deployment Specialist: Casey Marques MD #### ANICOT #### [facility] [address] [place] [address] Deployment Specialist: Adolph Diaz [facility] WITH AUTO DIFFERENTIALon [id number] (Bld) [#/Vol]0.06 10*3/[facility], KYBasophils/100 WBC (Bld)1 %0 - 2 % [facility], FLDifferential TypeNOT REPORTEDKnox Community Hospital, KYEosinophils (Bld) [#/Vol]0.35 10*3/[facility], KYEosinophils/100 WBC (Bld)3 %1 - 4 %[facility], FLErythrocyte distribution width (RBC) [Ratio]14.7 %High11.8 - 14.4 %[facility], FLHematocrit (Bld) [Volume fraction]38.4 %36.3 - 47.1 %[facility], FLHemoglobin (Bld) [Mass/Vol]12.0 g/dL11.9 - 15.1 g/dLKnox Community Hospital, FLImmature granulocytes (Bld) [#/Vol]1 %[address] [place] [address], [place] Immature granulocytes (Bld) [#/Vol]0.06 10*3/[facility], [place] Interpretation and review of laboratory resultsAbnormSamaritan Hospital, [place] Lymphocytes (Bld) [#/Vol]2.21 10*3/[facility], NORMALymphocytes/100 WBC (Bld)21 %Low24 - 43 %[facility], FLMCH (RBC) [Entitic mass]26.5 pg25.2 - 33.5 pgKnox Community Hospital, FLMCHC (RBC) [Mass/Vol]31.3 g/dL28.4 - 34.8 g/dLKnox Community Hospital, FLMCV (RBC) [Entitic vol]85.0 fL82.6 - 102.9 fLKnox Community Hospital, [place] Monocytes (Bld) [#/Vol]0.71 10*3/[facility], KYMonocytes/100 WBC (Bld)7 %3 - 12 %[facility], FLPlatelet mean volume (Bld) [Entitic vol]8.6 fL8.1 - 13.5 fLKnox Community Hospital, FLPlatelets (Bld) [#/Vol]256 10*3/[facility], KYPlatelets (Bld) [#/Vol]NOT REPORTEDHolzer Hospital (Bld) [#/Vol]4.52 10*6/uL3.95 - 5.11 m/[facility], [facility] morphology finding Nom (Bld) ANISOCYTOSIS PRESENTKnox Community Hospital, FLSegmented neutrophils/100 WBC (Bld)67 % High36 - 65 %[place], KYSegs Absolute7.30[facility], FLWBC (Bld) [#/Vol]10.7 10*3/uLKnox Community Hospital, FLWBC (Bld) [#/Vol]0.0 10*3/uL0.0 per 100 WBCKnox Community Hospital, [facility] MorphologyNOT REPORTEDUC Health with Diffon [id number]. Basophil0.06 k/uLNormal0.00-0.20[facility] County Memorial HospitalComment on above:Performed By: #### CBC, PT, PTT, BMP #### [employer] [address] [place] [address] [phone] Deployment Specialist: Casey Marques MD #### ANALI #### [employer] [address] [place] [address] Deployment Specialist: Ashley Ward.Imm.Granulocyte0.06 k/uLNormal0.00-0.30F[facility] County Memorial HospitalComment on above:Performed By: #### CBC, PT, PTT, BMP #### [employer] [address] [place] [address] Deployment Specialist: Casey Marques MD #### RICKYT #### [employer] [address] [place] [address] Deployment Specialist: Ashley Ward.Neutrophil (Seg)7.30 k/uLNormal1.50-8.10F[facility] County Memorial HospitalComment on above:Performed By: #### CBC, PT, PTT, BMP #### [facility] [address] [place] [address] Deployment Specialist: Casey Marques MD #### ANICOT #### [facility] [address] [place], [place] [id number] Deployment Specialist: Adolph Diaz MDBasophils/100 WBC (Bld)1 %Normal0-2MSan Luis Rey HospitalComment on above:Performed By: #### CBC, PT, PTT, BMP #### [facility] [address] [place] [address] Deployment Specialist: Casey Marques MD #### ANICOT #### [address] [id number] Deployment Specialist: Adolph Diaz MDEosinophils (Bld) [#/Vol]0.35 10*3/uLNormal 0.00-0.44F[facility] County Memorial HospitalComment on above:Performed By: #### CBC, PT, PTT, BMP #### [address] [address] Deployment Specialist: Casey Marques MD #### ANICOT #### [address] [id number] Deployment Specialist: Adolph Diaz MDEosinophils/100 WBC (Bld)3 %Normal1-4F[facility] County Memorial HospitalComment on above:Performed By: #### CBC, PT, PTT, BMP #### [address] [address] Deployment Specialist: Casey Marques MD #### ANICOT #### [address] [id number] Deployment Specialist: Adolph Diaz MDErythrocyte distribution width (RBC) [Ratio]14.7 %High11.8-14.4F[facility] County Memorial HospitalComment on above:Performed By: #### CBC, PT, PTT, BMP #### [facility] [address] [place] [address] Deployment Specialist: Casey Marques MD #### ANICOT #### [facility] [address] [place] [address] Deployment Specialist: Adolph Diaz MDHematocrit (Bld) [Volume fraction]38.4 %Normal 36.3-47.1MSan Luis Rey HospitalComment on above:Performed By: #### CBC, PT, PTT, BMP #### [facility] [address] [place] [address] Deployment Specialist: Casey Marques MD #### ANICOT #### [facility] [address] [place] [address] Deployment Specialist: Adolph Diaz MDHemoglobin (Bld) [Mass/Vol]12.0 g/dLNormal 11.9-15.1Mpremier health atrium medical centery San Ram[facility] Regional Medical CenterComment on above:Performed By: #### CBC, PT, PTT, BMP #### [facility] [address] [place] [address] Deployment Specialist: Casey Marques MD #### ANICOT #### [facility] [address], [place] [id number] Deployment Specialist: Adolph Diaz MDImmature granulocytes/100 WBC (Bld)1 %Afgs2SbbxxKaweah Delta Medical CenterComment on above:Performed By: #### CBC, PT, PTT, BMP #### [facility] [address] [place] [address] Deployment Specialist: Casey Marques MD #### ANICOT #### [facility] [address] [place], [place] [id number] Deployment Specialist: Adolph Diaz MDLymphocytes (Bld) [#/Vol]2.21 10*3/uLNormal 1.10-3.70F[facility] County Memorial HospitalComment on above:Performed By: #### CBC, PT, PTT, BMP #### [address] [address] Deployment Specialist: Casey Marques MD #### ANICOT #### [facility] [address] [place], [place] [id number] Deployment Specialist: Adolph Diaz MDLymphocytes/100 WBC (Bld)21 %Vqq32-39LvvinFayette County Memorial HospitalComment on above:Performed By: #### CBC, PT, PTT, BMP #### [place] [address] Deployment Specialist: Casey Marques MD #### ANICOT #### [address] [phone] Deployment Specialist: NIMCO Ward (RBC) [Entitic mass]26.5 tuRnaegg49.2-33.5 [facility] HospitalComment on above:Performed By: #### CBC, PT, PTT, BMP #### [address] [phone] Deployment Specialist: Casey Marques MD #### ANICOT #### [address] [phone] Deployment Specialist: NIMCO WardC (RBC) [Mass/Vol]31.3 g/jOPbnqtv12.4-34.8 [facility] HospitalComment on above:Performed By: #### CBC, PT, PTT, BMP #### [address] [id number] Deployment Specialist: Casey Marques MD #### ANICOT #### [facility] [address] [place], [place] [id number] Deployment Specialist: Adolph Diaz, MDMCV (RBC) [Entitic vol]85.0 iCVvunxl87.6-102.9 [facility] HospitalComment on above:Performed By: #### CBC, PT, PTT, BMP #### [address] [address] Deployment Specialist: Casey Marques MD #### ANICOT #### [facility] [address] [place] [address] Deployment Specialist: Adolph Diaz MDMonocytes (Bld) [#/Vol]0.71 10*3/uLNormal 0.10-1.20[facility] HospitalComment on above:Performed By: #### CBC, PT, PTT, BMP #### [address] [address] Deployment Specialist: Casey Marques MD #### ANICOT #### [facility] [address] [place] [address] Deployment Specialist: YESSICA Wardonocytes/100 WBC (Bld)7 %Normal3-12F[facility] Memorial HospitalComment on above:Performed By: #### CBC, PT, PTT, BMP #### [address] [address] Deployment Specialist: Casey Marques MD #### ANICOT #### [facility] [address] [place] [address] Deployment Specialist: Adolph Diaz MDNeutrophil (Seg)67 %Skfr77-66TshwuFayette County Memorial HospitalComment on above:Performed By: #### CBC, PT, PTT, BMP #### [address] [address] Deployment Specialist: Casey Marques MD #### ANICOT #### [facility] [address] [place] [address] Deployment Specialist: Adolph Diaz MDNRBC Automated0.0 per 100 WBCNormal0.0F[facility] Memorial HospitalComment on above:Performed By: #### CBC, PT, PTT, BMP #### [address] [address] Deployment Specialist: Casey Marques MD #### ANICOT #### [facility] [address] [place] [address] Deployment Specialist: Stephan Ward mean volume (Bld) [Entitic vol]8.6 fL Normal8.1-13.5F[facility] Memorial HospitalComment on above:Performed By: #### CBC, PT, PTT, BMP #### [address] [address] Deployment Specialist: Casey Marques MD #### ANICOT #### [facility] [address] [place] [address] Deployment Specialist: Yajaira Ward (Bld) [#/Vol]256 10*3/jGQpgnkj609-986 [facility] HospitalComment on above:Performed By: #### CBC, PT, PTT, BMP #### [address] [address] Deployment Specialist: Casey Marques MD #### ANICOT #### [facility] [address] [place] [address] Deployment Specialist: Adolph Diaz MDRBC (Bld) [#/Vol]4.52 10*6/uLNormal3.95-5.11[facility] HospitalComment on above:Performed By: #### CBC, PT, PTT, BMP #### [address] [address] Deployment Specialist: Casey Marques MD #### ANICOT #### [facility] [address] [place] [address] Deployment Specialist: RAYMON Ward morphology finding Nom (Bld)ANISOCYTOSIS PRESENTLouis Stokes Cleveland VA Medical CenterComment on above:Performed By: #### CBC, PT, PTT, BMP #### [facility] [address] [place] [address] Deployment Specialist: Casey Marques MD #### ANICOT #### [facility] [address] [place] [address] Deployment Specialist: DIEGO Ward (Bld) [#/Vol]10.7 10*3/uLNormal3.5-11.3[facility] Medical CenterComment on above:Performed By: #### CBC, PT, PTT, BMP #### [facility] [address] [place] [address] Deployment Specialist: Casey Marques MD #### ANICOT #### [facility] [address] [place] [address] Deployment Specialist: Arnav Ward PerformedNOT REPORTEDLouis Stokes Cleveland VA Medical CenterComment on above:Performed By: #### CBC, PT, PTT, BMP #### [facility] [address] [place] [address] Deployment Specialist: Casey Marques MD #### ANICOT #### [facility] [address] [place] [address] Deployment Specialist: Stephan Ward EstimateNOT REPORTEDLouis Stokes Cleveland VA Medical CenterComment on above:Performed By: #### CBC, PT, PTT, BMP #### [facility] [address] [place] [address] Deployment Specialist: Casey Marques MD #### ANICOT #### [facility] [address] [place] [address] Deployment Specialist: DIEGO Ward MorphologyNOT REPORTEDNormalFayette County Memorial HospitalComment on above:Performed By: #### CBC, PT, PTT, BMP #### [employer] [address] [place] [address] [phone] Deployment Specialist: Casey Marques MD #### ANICOT #### [facility] [address] [place] [address] Deployment Specialist: JACINTO Wardurgical Pathologyon [id number] Pathology Report-- Diagnosis -- STOMACH, SLEEVE GASTRECTOMY: [...] with no areas of granularity or masses. [employer] sections 1cs. tm Microscopic Description Sections of gastric mucosa show increased lymphocytes and plasma cells in the lamina propria. There is no evidence of acute inflammation, intestinal metaplasia or dysplasia. There is no evidence of organisms suspicious for Helicobacter with the routine H&E stains. SURGICAL PATHOLOGY CONSULTATION Patient Name: JAZ SANDERS [facility] Rec: [id number] Path Number: [id number] [employer] [facility] ANATOMIC PATHOLOGY [address] [place] [phone] [facility]- [place], KYBasic Metabolic Panelon [id number] gap [Moles/Vol]13 mmol/L9 - 17 mmol/LMercy Health- [place], KYBun/Cre RatioNOT REPORTEDMer[facility] Health- [place], KYCalcium [Mass/Vol]9.4 mg/dL8.6 - 10.4 mg/dLMercy Health- [place], KYChloride [Moles/Vol]104 mmol/L98 - 107 mmol/LMercy Health- [place], [place] CO2 [Moles/Vol]23 mmol/L20 - 31 mmol/[facility], KYCreatinine [Mass/Vol] 0.73 mg/dL0.5 - 0.9 mg/dLKn[facility], KYGFR >60>60 mL/min [facility], KYGFR Non->60>60 mL/minKnox Community Hospital, [place] GFR/1.73 sq M predicted among non-blacks MDRD (S/P/Bld) [Vol rate/Area]NOT REPORTEDKnox Community Hospital, KYGFR/1.73 sq M predicted among non-blacks MDRD (S/P/Bld) [Vol rate/Area][facility], KYComment on above:Average GFR for 20-29 years old: 116 mL/min/1.73sq m Chronic Kidney Disease: <60 mL/min/1.73sq m Kidney failure: <15 mL/min/1.73sq m eGFR calculated using average adult body mass. Additional eGFR calculator available at: http://www.MySocialCloud.com/multiple_crcl_2011.htm Glucose [Mass/Vol]98 mg/dL70 - 99 mg/dLKnox Community Hospital, KYPotassium [Moles/Vol] 4.1 mmol/L3.7 - 5.3 mmol/[facility], KYSodium [Moles/Vol]140 mmol/L135 - 144 mmol/[facility], KYUrea nitrogen [Mass/Vol]6 mg/dL6 - 20 mg/dLKnox Community Hospital, KYBasic Metabolic Profon 05-07-2020(cont.)[facility] Medical CenterComment on above:Result Comment: Average GFR for 20-29 years old: 116 mL/min/1.73sq m Chronic Kidney Disease: <60 mL/min/1.73sq m Kidney failure: <15 mL/min/1.73sq m eGFR calculated using average adult body mass. Additional eGFR calculator available at: http://www.MySocialCloud.com/multiple_crcl_2012.htmPerformed By: #### CBC, BMP #### [employer] [facility] [place] [address] Deployment Specialist: Casey Marques MDAnion gap [Moles/Vol]13 mmol/LNormal9-17[facility] HospitalComment on above:Performed By: #### CBC, BMP #### [facility] [address] [place] [address] Deployment Specialist: Casey Marques MDCalcium [Mass/Vol]9.4 mg/dLNormal8.6-10.4[facility] HospitalComment on above:Performed By: #### CBC, BMP #### [facility] [address] [place] [address] Deployment Specialist: Casey Marques MDChloride [Moles/Vol]104 mmol/DUxjejp99-401DoxshFayette County Memorial HospitalComment on above:Performed By: #### CBC, BMP #### [facility] [address] [place] [address] Deployment Specialist: Casey Marques MDCO2 [Moles/Vol]23 mmol/HQyjqqc68-87KcuauFayette County Memorial HospitalComment on above:Performed By: #### CBC, BMP #### [facility] [address] [place] [address] Deployment Specialist: Casey Marques MDCreatinine [Mass/Vol]0.73 mg/dLNormal0.50-0.90 [facility] HospitalComment on above:Performed By: #### CBC, BMP #### [facility] [address] [place] [address] Deployment Specialist: SIRISHA Capellan, Amer>60Normal>60[facility] HospitalComment on above:Performed By: #### CBC, BMP #### [facility] [address] [place] [address] Deployment Specialist: Casey Madoff, MDGFR,non Amer>60Normal>60[facility] HospitalComment on above:Performed By: #### CBC, BMP #### [facility] [address] [place] [address] Deployment Specialist: Casey Marques MDGlucose [Mass/Vol]98 mg/aCCwobbw37-92NasktSan Luis Rey HospitalComment on above:Performed By: #### CBC, BMP #### [facility] [address] [place] [address] Deployment Specialist: VERONICA Capellanotassium [Moles/Vol]4.1 mmol/LNormal3.7-5.3 [facility] HospitalComment on above:Performed By: #### SAGRARIO, BMP #### [address] [address] Deployment Specialist: JACINTO Capellanodium [Moles/Vol]140 mmol/ZEftgie573-759UlyztFayette County Memorial HospitalComment on above:Performed By: #### SAGRARIO, BMP #### [address] [address] Deployment Specialist: Casey Marques MDUrea nitrogen [Mass/Vol]6 mg/dLNormal6-20[facility] HospitalComment on above:Performed By: #### SAGRARIO, BMP #### [address] [address] Deployment Specialist: Casey Marques MDBUN/CRE RatioNOT REPORTEDNormal9-20[facility] HospitalComment on above:Performed By: #### SAGRARIO, BMP #### [address] [address] Deployment Specialist: JACINTO Capellantaging:NOT REPORTEDNormalFayette County Memorial HospitalComment on above:Performed By: #### CBC, BMP #### [facility] [employer] [address] [place] [address] Deployment Specialist: Nacho Capellan 40-86-9346Nfjcnngobbj distribution width (RBC) [Ratio]14.4 %Chfrhk08.8-14.4[facility] HospitalComment on above:Performed By: #### CBC, BMP #### [address] [address] Deployment Specialist: Casey Marques MDHematocrit (Bld) [Volume fraction]40.4 %Normal 36.3-47.1MSan Luis Rey HospitalComment on above:Performed By: #### CBC, BMP #### [address] [address] Deployment Specialist: Casey Marques MDHemoglobin (Bld) [Mass/Vol]12.6 g/dLNormal 11.9-15.1MSan Luis Rey HospitalComment on above:Performed By: #### CBC, BMP #### [address] [address] Deployment Specialist: YESSICA CapellanCH (RBC) [Entitic mass]26.1 ueSgvhas39.2-33.5 [facility] HospitalComment on above:Performed By: #### CBC, BMP #### [address] [address] Deployment Specialist: YESSICA CapellanCHC (RBC) [Mass/Vol]31.2 g/nKCsjyym80.4-34.8 [facility] HospitalComment on above:Performed By: #### CBC, BMP #### [address] [address] Deployment Specialist: YESSICA CapellanCV (RBC) [Entitic vol]83.8 mLOyfldw91.6-102.9 [facility] HospitalComment on above:Performed By: #### CBC, BMP #### [address] [address] Deployment Specialist: Casey Marques MDNRBC Automated0.0 per 100 WBCNormal0.0[facility] HospitalComment on above:Performed By: #### CBC, BMP #### [facility] [employer] [address] [place] [address] Deployment Specialist: Jose Capellantelet mean volume (Bld) [Entitic vol]8.7 fL Normal8.1-13.5[facility] HospitalComment on above:Performed By: #### CBC, BMP #### [address] [address] Deployment Specialist: VERONICA Capellanlatelets (Bld) [#/Vol]289 10*3/eXCorrzd719-027 [facility] HospitalComment on above:Performed By: #### CBC, BMP #### [address] [address] Deployment Specialist: Casey Marques MDRBC (Bld) [#/Vol]4.82 10*6/uLNormal3.95-5.11 [facility] HospitalComment on above:Performed By: #### CBC, BMP #### [address] [address] Deployment Specialist: Casey Marques MDWBC (Bld) [#/Vol]13.7 10*3/uLHigh3.5-11.3MSan Luis Rey HospitalComment on above:Performed By: #### CBC, BMP #### [facility] [employer] [address] [place] [address] Deployment Specialist: Casey Marques MDErythrocyte distribution width (RBC) [Ratio]14.4 %11.8 - 14.4 %[facility], KYHematocrit (Bld) [Volume fraction]40.4 %36.3 - 47.1 %[facility], KYHemoglobin (Bld) [Mass/Vol]12.6 g/dL11.9 - 15.1 g/dL [facility], FLInterpretation and review of laboratory resultsAbnormSamaritan Hospital, FLMCH (RBC) [Entitic mass]26.1 pg25.2 - 33.5 pgPeridot, [place] MCHC (RBC) [Mass/Vol]31.2 g/dL28.4 - 34.8 g/dLPeridot, KYMCV (RBC) [Entitic vol]83.8 fL82.6 - 102.9 fLPeridot, KYPlatelet mean volume (Bld) [Entitic vol]8.7 fL8.1 - 13.5 fLKnox Community Hospital, FLPlatelets (Bld) [#/Vol]289 10*3/[facility], FLRBC (Bld) [#/Vol]4.82 10*6/uL3.95 - 5.11 m/[facility], FLWBC (Bld) [#/Vol]0.0 10*3/uL0.0 per 100 WBCPeridot, KYWBC (Bld) [#/Vol]13.7 10*3/uLHighPeridot, KYFL ESOPHAGRAMon [id number] ESOPHAGRAMEXAMINATION: SINGLE CONTRAST ESOPHAGRAM 05/07/2020 HISTORY: ORDERING [...] Signed by: Petr Cullen MD 05/07/20 Final resultNoPremier Health Miami Valley HospitalEXAMINATION: SINGLE CONTRAST ESOPHAGRAM 05/07/2020 HISTORY: ORDERING [...] gastric sleeve. No obstruction. No extravasation of contrast.[facility] StratasanREYNOLDS COUNTY GENERAL MEMORIAL HOSPITALGerardo Mhpn Incoming Radiant Results From [employer] - 05/07/2020 10:04 AM EST EXAMINATION: SINGLE [...] of contrast. IMPRESSION: No extravasation of contrast. [facility] HospitalQ-goREYNOLDS COUNTY GENERAL MEMORIAL HOSPITALJacob extravasation of contrast.[facility] StratasanREYNOLDS COUNTY GENERAL MEMORIAL HOSPITALNORMAPOCT urine pregnancyon [id number] HCG ( test) Ql (U)NegativeNEGATIVEKnox Community Hospital, NORMAComment on above:Specimens with hCG levels near the threshold of the test (25 mIU/mL) may give a negative or indeterminate result. In such cases, another test should be performed with a new specimen in 48-72 hours. If early is suspected clinically in this setting, correlation with quantitative serum b-hCG level is suggested. Basic Metabolic Panelon [id number] gap [Moles/Vol]10 mmol/L9 - 17 mmol/L [facility] StratasanREYNOLDS COUNTY GENERAL MEMORIAL HOSPITAL, KYBun/Cre RatioNOT REPORTEDKnox [facility] Hospital, KYCalcium [Mass/Vol]9.5 mg/dL8.6 - 10.4 mg/dLKnox Community Hospital, KYChloride [Moles/Vol]103 mmol/L98 - 107 mmol/LMercMemorial Regional Hospital, KYCO2 [Moles/Vol]19 mmol/LLow20 - 31 mmol/LMWilson [address] Hospital, KYCreatinine [Mass/Vol]0.9 mg/dL0.5 - 0.9 mg/dLKnox Community Hospital, KYGFR >60>60 mL/minKnox Community Hospital, KYGFR Non- >60>60 mL/minKnox Community Hospital, KYGFR/1.73 sq M predicted among non-blacks MDRD (S/P/Bld) [Vol rate/Area]NOT REPORTEDKnox Community Hospital, [place] GFR/1.73 sq M predicted among non-blacks MDRD (S/P/Bld) [Vol rate/Area][facility], KYComment on above:Average GFR for 20-29 years old: 116 mL/min/1.73sq m Chronic Kidney Disease: <60 mL/min/1.73sq m Kidney failure: <15 mL/min/1.73sq m eGFR calculated using average adult body mass. Additional eGFR calculator available at: http://www.MySocialCloud.com/Simris Alg_crcl_2011.htm Glucose [Mass/Vol]162 mg/wQUpow72 - 99 mg/dLKnox Community Hospital, KYInterpretation and review of laboratory resultsAbnormalKnox Community Hospital, KYPotassium [Moles/Vol]3.9 mmol/L3.7 - 5.3 mmol/[facility], KYSodium [Moles/Vol]132 mmol/GQcs201 - 144 mmol/[facility], KYUrea nitrogen [Mass/Vol]10 mg/dL6 - 20 mg/dLKnox Community Hospital, KYBasic Metabolic Profon 05-06-2020(cont.)NormalFayette County Memorial HospitalComment on above:Result Comment: Average GFR for 20- 29 years old: 116 mL/min/1.73sq m Chronic Kidney Disease: <60 mL/min/1.73sq m Kidney failure: <15 mL/min/1.73sq m eGFR calculated using average adult body mass. Additional eGFR calculator available at: http://www.MySocialCloud.com/multiple_crcl_2012.htmPerformed By: #### CBC, BMP #### [employer] [address] [place] [address] Deployment Specialist: Casey Marques MDAnion gap [Moles/Vol]10 mmol/LNormal9-17F[facility] County Memorial HospitalComment on above:Performed By: #### CBC, BMP #### [facility] [address] [place] [address] Deployment Specialist: Casey Marques MDCalcium [Mass/Vol]9.5 mg/dLNormal8.6-10.4F[facility] County [facility] HospitalComment on above:Performed By: #### CBC, BMP #### [facility] [address] [place] [address] Deployment Specialist: Casey Marques MDChloride [Moles/Vol]103 mmol/MXyowrd49-356TauyzFayette County Memorial HospitalComment on above:Performed By: #### CBC, BMP #### [facility] [address] [place] [address] Deployment Specialist: Casey Marques MDCO2 [Moles/Vol]19 mmol/QBed68-41OddvyFayette County Memorial HospitalComment on above:Performed By: #### CBC, BMP #### [facility] [address] [place] [address] Deployment Specialist: Casey Marques MDCreatinine [Mass/Vol]0.90 mg/dLNormal0.50-0.90 [facility] HospitalComment on above:Performed By: #### CBC, BMP #### [facility] [address] [place] [address] Deployment Specialist: SIRISHA Capellan, Amer>60Normal>60[facility] HospitalComment on above:Performed By: #### CBC, BMP #### [facility] [address] [place] [address] Deployment Specialist: SIRISHA Capellan,non Amer>60Normal>60[facility] HospitalComment on above:Performed By: #### CBC, BMP #### [facility] [address] [place] [address] Deployment Specialist: Casey Marques MDGlucose [Mass/Vol]162 mg/tULjbn91-09OapgoSan Luis Rey HospitalComment on above:Performed By: #### CBC, BMP #### [facility] [address] [place] [address] Deployment Specialist: Casey Marques MDPotassium [Moles/Vol]3.9 mmol/LNormal3.7-5.3 [facility] HospitalComment on above:Performed By: #### CBC, BMP #### [address] [address] Deployment Specialist: JACINTO Capellanodium [Moles/Vol]132 mmol/HWbi067-177HothkFayette County Memorial HospitalComment on above:Performed By: #### SAGRARIO, BMP #### [address] [address] Deployment Specialist: Casey Marques MDUrea nitrogen [Mass/Vol]10 mg/dLNormal6-20[facility] HospitalComment on above:Performed By: #### CBC, BMP #### [address] [address] Deployment Specialist: ROSALBA CapellanN/CRE RatioNOT REPORTEDNormal9-20[facility] HospitalComment on above:Performed By: #### CBC, BMP #### [address] [address] Deployment Specialist: JACINTO Capellantaging:NOT REPORTEDNormalFayette County Memorial HospitalComment on above:Performed By: #### CBC, BMP #### [address] [address] Deployment Specialist: Nacho Capellan [id number] distribution width (RBC) [Ratio]14.6 %High11.8-14.4F[facility] County Memorial HospitalComment on above:Performed By: #### CBC, BMP #### [address] [address] Deployment Specialist: Casey Marques MDHematocrit (Bld) [Volume fraction]42.5 %Normal 36.3-47.1MSan Luis Rey HospitalComment on above:Performed By: #### CBC, BMP #### [address] [address] Deployment Specialist: Casey Marques MDHemoglobin (Bld) [Mass/Vol]12.8 g/dLNormal 11.9-15.1MSan Luis Rey HospitalComment on above:Performed By: #### CBC, BMP #### [address] [address] Deployment Specialist: YESSICA CapellanCH (RBC) [Entitic mass]26.9 bbKskloh50.2-33.5 [facility] HospitalComment on above:Performed By: #### CBC, BMP #### [address] [address] Deployment Specialist: YESSICA CapellanCHC (RBC) [Mass/Vol]30.1 g/cHVmfkvb04.4-34.8 [facility] HospitalComment on above:Performed By: #### CBC, BMP #### [address] [address] Deployment Specialist: YESSICA CapellanCV (RBC) [Entitic vol]89.3 uERehtrw96.6-102.9 [facility] HospitalComment on above:Performed By: #### CBC, BMP #### [address] [address] Deployment Specialist: RAMONE Capellan Automated0.0 per 100 WBCNormal0.0F[facility] County [facility] HospitalComment on above:Performed By: #### CBC, BMP #### [facility] [address] [place] [address] Deployment Specialist: Jose Caplelantebrigid mean volume (Bld) [Entitic vol]8.4 fL Normal8.1-13.5F[facility] County Memorial HospitalComment on above:Performed By: #### CBC, BMP #### [facility] [employer] [address] [place] [address] Deployment Specialist: Jose Capellantelets (Bld) [#/Vol]300 10*3/sVCyiuxc410-335 [facility] HospitalComment on above:Performed By: #### CBC, BMP #### [facility] [address] [place] [address] Deployment Specialist: MADDI CapellanBC (Bld) [#/Vol]4.76 10*6/uLNormal3.95-5.11 [facility] HospitalComment on above:Performed By: #### CBC, BMP #### [address] [address] Deployment Specialist: DIEGO Capellan (Bld) [#/Vol]14.3 10*3/uLHigh3.5-11.3MSan Luis Rey HospitalComment on above:Performed By: #### CBC, BMP #### [facility] [address] [place] [address] Deployment Specialist: NIDIA Capellan without Diffon [id number] distribution width (RBC) [Ratio]14.6 %High11.8 - 14.4 %[place] Hematocrit (Bld) [Volume fraction]42.5 %36.3 - 47.1 %[place] Hemoglobin (Bld) [Mass/Vol]12.8 g/dL11.9 - 15.1 g/dLPerid[place], [place] Interpretation and review of laboratory resultsAbnormalUniversity Hospitals Geauga Medical CenterH (RBC) [Entitic mass]26.9 pg25.2 - 33.5 pgPeridot, KYMCHC (RBC) [Mass/Vol]30.1 g/dL28.4 - 34.8 g/dLPerid[place], KYMCV (RBC) [Entitic vol] 89.3 fL82.6 - 102.9 fLPeridot, KYPlatelet mean volume (Bld) [Entitic vol]8.4 fL8.1 - 13.5 fLPerid[place], KYPlatelets (Bld) [#/Vol]300 10*3/uL [place], KYRBC (Bld) [#/Vol]4.76 10*6/uL3.95 - 5.11 m/uLPer[place], KYWBC (Bld) [#/Vol]14.3 10*3/uLHighPerid[place], KYWBC (Bld) [#/Vol]0.0 10*3/uL0.0 per 100 WBCPeridot, KYSurgical Pathologyon 05-06-2020 Surgical Pathology(NOTE) -- Diagnosis [...] with no areas of granularity or masses. String Winding Machine Operator sections 1cs. tm Microscopic Description Sections of gastric mucosa show increased lymphocytes and plasma cells in the lamina propria. There is no evidence of acute inflammation, intestinal metaplasia or dysplasia. There is no evidence of organisms suspicious for Helicobacter with the routine BRI stains. SURGICAL PATHOLOGY CONSULTATION Patient Name: JAZ SANDERS [facility] Rec: [id number] Path Number: [id number] [facility] ANATOMIC PATHOLOGY [address] [place] [phone] NoPremier Health Miami Valley HospitalComment on above: Performed By: #### CBC, PT, PTT, BMP #### [facility] [address] [place] [phone] Deployment Specialist: Casey Marques MD #### ANICOT #### [facility] [address] [place] [address] Deployment Specialist: YU WardCoV-2on [id number]-CoV-2NZanesville City HospitalComment on above:Performed By: #### COVID #### [address] [phone] Deployment Specialist: Tracie Capellan2Not DetectedNoalNOTDEOhioHealth Arthur G.H. Bing, MD, Cancer CenterComment on above:Result Comment: The specimen is NEGATIVE [...] this assay. Fact sheet for Healthcare Providers: https://www.fda.gov/media/469833/download Fact sheet for Patients: https://www.fda.gov/media/167291/download METHODOLOGY: RT-PCRPerformed By: #### COVID #### [facility] [address] [place] [address] Deployment Specialist: YU CapellanCoV-2,[facility] Comment on above:Performed By: #### COVID #### [facility] [address] [place] [address] Deployment Specialist: YU CapellanCoV-2on [id number]-CoV-2 Source .NASOPHARYNGEAL SWABMercy Health St. Elizabeth Boardman HospitalComment on above:Performed By: #### COVID #### [facility] [address] [place] [address] Deployment Specialist: Ilana Capellan [address]-UO-Ogvqnurg<2NBerger HospitalComment on above:Performed By: #### CBC, PT, PTT, BMP #### [facility] [address] [place] [address] Deployment Specialist: Casey Marques MD #### ANICOT #### [facility] [address] [place], [place] [id number] Deployment Specialist: Ariella Ward<2NormalFayette County Memorial Hospital Comment on above:Performed By: #### CBC, PT, PTT, BMP #### [facility] [address] [place] [address] Deployment Specialist: Casey Marques MD #### ANICOT #### [facility] [address] [place], [place] [id number] Deployment Specialist: Jaja Wardotine<2NormalFayette County Memorial Hospital Comment on above:Result Comment: (NOTE) [...] positive. Test developed and characteristics determined by [employer]. See Compliance Statement B: [email or web address]/CS Performed By: [employer] [address] [place] [address] Network Manager: VERONICA Barerformed By: #### CBC, PT, PTT, BMP #### [employer] [facility] [place] [address] Deployment Specialist: Casey Marques MD #### ANICOT #### [employer] [address] [place] [address] Deployment Specialist: Shani WardCasey County Hospital [id number]-NG-Jhzkmqmu<2ng/mL [facility]- [place], KYCotinine<2ng/mLMerPoetica Health- [place], KYNicotine<2ng/mLMercy Health- [place], KYComment on [...] positive. Test developed and characteristics determined by [employer]. See Compliance Statement B: [email or web address] Performed By: [employer] [address] [place] [address] Network Manager: Lynn Layne MD EKG 12 Leadon 29-07-1170Lfvtul Iwbn41QXIMcplsProMedica [facility]iance [facility], KYP Ejao34nlfitmkQobmo Health- [place], KYP-R Sulyzayp253 [facility] [place], KYQ-T Dzpbtwuf782 [facility], KYQRS Hjgluwlg66 [facility] [place], KYQTc Calculation (Tamelatt)500 [facility], KYR Xlkz21ujazqwtMuicf Health- [place], KYT Ddri24zvwkpykOlbcb Health- [place], KYVentricular Gpey50QCESnhjr Health- [place], KYNormal sinus rhythm with sinus arrhythmia Prolonged QT Abnormal ECG No previous ECGs availableKnox Community Hospital, [place] Carrillo Incoming Ekg Results From [facility] - 04/23/2020 12:32 PM EST Normal sinus rhythm with sinus arrhythmia Prolonged QT Abnormal ECG No previous ECGs availableKnox Community Hospital, FLAPTTsehootsooi Medical Center ([facility] [id number] Coag (Bld) [Time]22.2 qYiqnua66.5-30.5F[facility] County Memorial HospitalComment on above: Result Comment: IV Heparin Therapy Range: 48.6-77.8Performed By: #### CBC, PT, PTT, BMP #### [employer] [address] [place] [address] Deployment Specialist: Casey Marques MD #### ANICOT #### [employer] [address] [place] [address] Deployment Specialist: Adolph Diaz MDaPTGino Coag (Bld) [Time]22.2 [facility], [place] Comment on above: IV Heparin Therapy Range: 48.6-77.8 Basic Metabolic Panelon [id number] gap [Moles/Vol]12 mmol/L9 - 17 mmol/L [facility], KYBun/Cre RatioNOT REPORTEDKnox Community Hospital, KYCalcium [Mass/Vol]9.2 mg/dL8.6 - 10.4 mg/dLKnox Community Hospital, KYChloride [Moles/Vol]104 mmol/L98 - 107 mmol/LMWilson Street Hospital, KYCO2 [Moles/Vol]23 mmol/L20 - 31 mmol/L [facility], KYCreatinine [Mass/Vol]0.69 mg/dL0.5 - 0.9 mg/dLKnox Community Hospital, KYGFR >60>60 mL/minKnox Community Hospital, KYGFR Non->60>60 mL/minKnox Community Hospital, KYGFR/1.73 sq M predicted among non- blacks MDRD (S/P/Bld) [Vol rate/Area]NOT REPORTEDKnox Community Hospital, KYGFR/1.73 sq M predicted among non-blacks MDRD (S/P/Bld) [Vol rate/Area][facility], [place] Comment on above:Average GFR for 20-29 years old: 116 mL/min/1.73sq m Chronic Kidney Disease: <60 mL/min/1.73sq m Kidney failure: <15 mL/min/1.73sq m eGFR calculated using average adult body mass. Additional eGFR calculator available at: http://www.[employer].com/multiple_crcl_2011.htm Glucose [Mass/Vol]123 mg/rKYezm63 - 99 mg/dLKnox Community Hospital, KYInterpretation and review of laboratory resultsAbnormalKnox Community Hospital, KYPotassium [Moles/Vol]4.1 mmol/L3.7 - 5.3 mmol/LMWilson [address] Hospital, KYSodium [Moles/Vol]139 mmol/L135 - 144 mmol/LMWilson Street Hospital, KYUrea nitrogen [Mass/Vol]7 mg/dL6 - 20 mg/dLKnox Community Hospital, KYBasic Metabolic Profon 04-22-2020(cont.)NormalFayette County Memorial HospitalComment on above:Result Comment: Average GFR for 20-29 years old: 116 mL/min/1.73sq m Chronic Kidney Disease: <60 mL/min/1.73sq m Kidney failure: <15 mL/min/1.73sq m eGFR calculated using average adult body mass. Additional eGFR calculator available at: http://www.[employer]/multiple_crcl_2012.htmPerformed By: #### CBC, PT, PTT, BMP #### [employer] [address] [place] [address] Deployment Specialist: Casey Marques MD #### ANICOT #### [facility] [address] [place] [address] Deployment Specialist: Dontae Ward gap [Moles/Vol]12 mmol/LNormal9-17F[facility] HospitalComment on above:Performed By: #### CBC, PT, PTT, BMP #### [address] [address] Deployment Specialist: Casey Marques MD #### ANICOT #### [address] [address] Deployment Specialist: XIN Wardalcium [Mass/Vol]9.2 mg/dLNormal8.6-10.4F[facility] HospitalComment on above:Performed By: #### CBC, PT, PTT, BMP #### [address] [address] Deployment Specialist: Casey Marques MD #### ANICOT #### [facility] [address] [place] [address] Deployment Specialist: XIN Wardhloride [Moles/Vol]104 mmol/QBqbaig01-665DkbphFayette County Memorial HospitalComment on above:Performed By: #### CBC, PT, PTT, BMP #### [employer] [address] [place] [address] Deployment Specialist: Casey Marques MD #### ANICOT #### [facility] [address] [place] [address] Deployment Specialist: XIN WardO2 [Moles/Vol]23 mmol/NDhziba00-87XyqiqFayette County Memorial HospitalComment on above:Performed By: #### CBC, PT, PTT, BMP #### [facility] [address] [place] [address] Deployment Specialist: Casey Marques MD #### ANICOT #### [facility] [address] [place] [address] Deployment Specialist: XIN Wardreatinine [Mass/Vol]0.69 mg/dLNormal0.50-0.90 [facility] HospitalComment on above:Performed By: #### CBC, PT, PTT, BMP #### [facility] [address] [place] [address] Deployment Specialist: Casey Marques MD #### ANICOT #### [facility] [address] [place], [place] [id number] Deployment Specialist: Adolph Diaz MDGFR, Amer>60Normal>60[facility] HospitalComment on above:Performed By: #### CBC, PT, PTT, BMP #### [facility] [address] [place] [address] Deployment Specialist: Casey Marques MD #### ANICOT #### [facility] [address] [place] [address] Deployment Specialist: Adolph Diaz MDGFR,non Amer>60Normal>60[facility] HospitalComment on above:Performed By: #### CBC, PT, PTT, BMP #### [facility] [address] [place] [address] Deployment Specialist: Casey Marques MD #### ANICOT #### [facility] [address] [place] [address] Deployment Specialist: Adolph Diaz MDGlucose [Mass/Vol]123 mg/tUIfyl72-49QfvciSan Luis Rey HospitalComment on above:Performed By: #### CBC, PT, PTT, BMP #### [address] [address] Deployment Specialist: Casey Marques MD #### ANICOT #### [facility] [address] [place] [address] Deployment Specialist: VERONICA Wardotassium [Moles/Vol]4.1 mmol/LNormal3.7-5.3MSan Luis Rey HospitalComment on above:Performed By: #### CBC, PT, PTT, BMP #### [address] [address] Deployment Specialist: Casey Marques MD #### ANICOT #### [address] [address] Deployment Specialist: JACINTO Wardodium [Moles/Vol]139 mmol/MSfurdw969-465HbmdfFayette County Memorial HospitalComment on above:Performed By: #### CBC, PT, PTT, BMP #### [address] [address] Deployment Specialist: Casey Marques MD #### ANICOT #### [facility] [address] [place] [address] Deployment Specialist: Adolph Diaz MDUrea nitrogen [Mass/Vol]7 mg/dLNormal6-20[facility] HospitalComment on above:Performed By: #### CBC, PT, PTT, BMP #### [address] [address] Deployment Specialist: Casey Marques MD #### ANICOT #### [address] [address] Deployment Specialist: Adolph Diaz MDBUTanja/CRE RatioNOT REPORTEDNoformerly [facility]20[facility] HospitalComment on above:Performed By: #### CBC, PT, PTT, BMP #### [facility] [address] [place] [address] Deployment Specialist: Casey Marques MD #### ANICOT #### [facility] [address] [place] [address] Deployment Specialist: JACINTO Wardtaging:NOT REPORTEDNoalFayette County Memorial HospitalComment on above:Performed By: #### CBC, PT, PTT, BMP #### [facility] [address] [place] [address] Deployment Specialist: Casey Marques MD #### ANICOT #### [facility] [address] [place] [address] Deployment Specialist: XIN Wardmanisha [id number] distribution width (RBC) [Ratio]14.6 %High11.8-14.4[facility] HospitalComment on above:Performed By: #### CBC, PT, PTT, BMP #### [facility] [address] [address] Deployment Specialist: Casey Marques MD #### ANICOT #### [facility] [address] [place] [address] Deployment Specialist: Adolph Diaz MDHematocrit (Bld) [Volume fraction]40.8 %Normal 36.3-47.1[facility] Medical CenterComment on above:Performed By: #### CBC, PT, PTT, BMP #### [facility] [address] [address] Deployment Specialist: Casey Marques MD #### ANICOT #### [facility] [address] [place], [place] [id number] Deployment Specialist: Adolph Diaz MDHemoglobin (Bld) [Mass/Vol]12.8 g/dLNormal 11.9-15.1MSan Luis Rey HospitalComment on above:Performed By: #### CBC, PT, PTT, BMP #### [address] [address] Deployment Specialist: Casey Marques MD #### ANICOT #### [facility] [address] [place], [place] [id number] Deployment Specialist: YESSICA WardCH (RBC) [Entitic mass]26.5 vwYlshmu37.2-33.5 [facility] HospitalComment on above:Performed By: #### CBC, PT, PTT, BMP #### [address] [address] Deployment Specialist: Casey Marques MD #### ANICOT #### [facility] [address] [place], [place] [id number] Deployment Specialist: NIMCO WardC (RBC) [Mass/Vol]31.4 g/eSJmzihg26.4-34.8 [facility] HospitalComment on above:Performed By: #### CBC, PT, PTT, BMP #### [address] [id number] Deployment Specialist: Casey Marques MD #### ANICOT #### [facility] [address] [place], [place] [address] Deployment Specialist: YESSICA WardCV (RBC) [Entitic vol]84.5 xCYbvfaj57.6-102.9 [facility] HospitalComment on above:Performed By: #### CBC, PT, PTT, BMP #### [address] [address] Deployment Specialist: Casey Marques MD #### ANICOT #### [facility] [address] [place] [address] Deployment Specialist: Adolph Diaz MDNRBC Automated0.0 per 100 WBCNormal0.0F[facility] HospitalComment on above:Performed By: #### CBC, PT, PTT, BMP #### [facility] [address] [place] [address] Deployment Specialist: Casey Marques MD #### ANICOT #### [facility] [address] [place] [address] Deployment Specialist: Stephan Ward mean volume (Bld) [Entitic vol]8.7 fL Normal8.1-13.5[facility] HospitalComment on above:Performed By: #### CBC, PT, PTT, BMP #### [place] [address] Deployment Specialist: Casey Marques MD #### ANICOT #### [facility] [address] [place] [address] Deployment Specialist: Yajaira Ward (Bld) [#/Vol]298 10*3/rLBcrqbg333-758 [facility] HospitalComment on above:Performed By: #### CBC, PT, PTT, BMP #### [place] [address] Deployment Specialist: Casey Marques MD #### ANICOT #### [facility] [address] [place] [address] Deployment Specialist: RAYMON Ward (Bld) [#/Vol]4.83 10*6/uLNormal3.95-5.11[facility] HospitalComment on above:Performed By: #### CBC, PT, PTT, BMP #### [place] [id number] Deployment Specialist: Casey Marques MD #### ANICOT #### [facility] [address] [place] [address] Deployment Specialist: Adolph Diaz MDWBC (Bld) [#/Vol]10.8 10*3/uLNormal3.5-11.3[facility] Medical CenterComment on above:Performed By: #### CBC, PT, PTT, BMP #### [facility] [address] [place], [place] [id number] Deployment Specialist: Casey Marques MD #### ANICOT #### [facility] [address] [place] [address] Deployment Specialist: Adolph Diaz MDErythrocyte distribution width (RBC) [Ratio]14.6 %High11.8 - 14.4 %[facility], FLHematocrit (Bld) [Volume fraction]40.8 % 36.3 - 47.1 %[facility], FLHemoglobin (Bld) [Mass/Vol]12.8 g/dL11.9 - 15.1 g/dLKnox Community Hospital, FLInterpretation and review of laboratory resultsAbnormal [facility], [facility]H (RBC) [Entitic mass]26.5 pg25.2 - 33.5 pgKnox Community Hospital, [facility] CITYHC (RBC) [Mass/Vol]31.4 g/dL28.4 - 34.8 g/dLKnox Community Hospital, [facility] CITYV (RBC) [Entitic vol]84.5 fL82.6 - 102.9 fLAshtabula County Medical Center- [place], FLPlatelet mean volume (Bld) [Entitic vol]8.7 fL8.1 - 13.5 fLAshtabula County Medical Center- [place], KYPlatelets (Bld) [#/Vol]298 10*3/uLAshtabula County Medical Center- [place], KYRBC (Bld) [#/Vol]4.83 10*6/uL3.95 - 5.11 m/[facility]- [place], KYWBC (Bld) [#/Vol]10.8 10*3/uLKnox Community HospitalNORMAWBC (Bld) [#/Vol]0.0 10*3/uL0.0 per 100 WBCKnox Community HospitalHectoron [id number] acute cardiopulmonary findingsKnox Community HospitalNORMAEXAMINATION: TWO XRAY VIEWS OF THE CHEST 04/22/2020 2:46 pm COMPARISON: Baseline examination HISTORY:ORDERING SYSTEM PROVIDED HISTORY: preop gastric bypass [employer] TECHNOLOGIST PROVIDED HISTORY: preop gastric bypass [employer] Reason for Exam: preop gastric bypass FINDINGS: Normal cardiopericardialsilhouette There are no significant pleural, parenchymal, mediastinal or osseous findingsKnox Community HospitalNORMASilver Madrid Incoming Radiant Results From [email or web address] - 04/22/2020 3:28 PM EST EXAMINATION: TWO XRAY VIEWS OF THE CHEST 04/22/2020 2:46 pm COMPARISON: Baseline examination HISTORY: ORDERING SYSTEM PROVIDED HISTORY: preop gastric bypass [employer] TECHNOLOGIST PROVIDED HISTORY: preop gastric bypass [employer] Y Reason for Exam: preop gastric bypass FINDINGS: Normal cardiopericardial silhouette There are no significant pleural, parenchymal, mediastinal or osseous findings IMPRESSION: No acute cardiopulmonary findings [facility] HospitalEricka [id number] Coag (PPP) [Relative time]0.9 {INR}Normal [facility] HospitalComment on above:Result Comment: Therapeutic Range: Moderate Anticoagulant Intensity: INR = 2.0-3.0 High Anticoagulant Intensity: INR = 2.5-3.5Performed By: #### CBC, PT, PTT, BMP #### [employer] [address] [place], [place] [id number] Deployment Specialist: Casey Marques MD #### ANICOT #### [facility] [address] [place] [address] Deployment Specialist: CULLEN Ward Coag (PPP) [Time]9.3 sNormal9.0-12.0[facility] HospitalComment on above:Performed By: #### CBC, PT, PTT, BMP #### [employer] [address] [place] [address] Deployment Specialist: Casey Marques MD #### ANALI #### [facility] [address] [place] [address] Deployment Specialist: VERONICA Wardrotime-INRon [id number] Coag (PPP) [Relative time]0.9 {INR}[employer], NORMAComselect specialty hospital-pontiac on above: Therapeutic Range: Moderate Anticoagulant Intensity: INR = 2.0-3.0 High Anticoagulant Intensity: INR = 2.5-3.5 PT Coag (PPP) [Time]9.3 sMohio state health system UnBuyThat [place], KYXR CHEST (2 VW)on [id number] CHEST (2 VW)EXAMINATION: TWO XRAY VIEWS OF [...] Signed by: Roxanne Avitia MD 04/22/20 Final resultNoPremier Health [facility] Vital Signs Date TimeVital SignValuePerforming IwbqgktqmZcktvvwq37-32-9910 13:26-0500Body mass index (BMI) [Ratio]40.03 kg/e2Nzzvn Juan DO Work Phone: [facility] HospitalNrflqlnynw87-77-9147 13:26-0500Body .18 kgCorey Juan DO Work Phone: [facility] HospitalFafbexgtsw46-48-9634 13:26-0500Diastolic blood hcgrxpsa16 mm[Hg]Les Juan DO Work Phone: [facility] HospitalFxmlbchcut21-37-9864 13:26-0500Systolic blood cuzvzeln382 mm[Hg]Les Juan DO Work Phone: [facility] HospitalAfpwounvyx72-19-6255 14:43-0400Body mass index (BMI) [Ratio]39.77 kg/m2Amy Leopold PA Work Phone: 1(384)418-[facility] HospitalNgbfsvjiry44-43-6719 14:43-0400Body idhasv457.33 kgAmy Leopold PA Work Phone: [facility] HospitalRvhmtjocnj14-18-3707 14:43-0400Diastolic blood orfchxxy54 mm[Hg]Jojo Ames PA Work Phone: [phone])499-[facility] CenterF[facility] HospitalEcmssdmlna19-96-1810 14:43-0400Systolic blood ygfnvmex262 mm[Hg]Jojo Pelaezey PA Work Phone: [phone])814-[address] [place], [place] [address]Gimqtmvxjb31-42-6186 11:34-0400Body mass index (BMI) [Ratio]38.49 kg/e7VkihpkrmMima Duenas FR[employer]CH [employer]RAWER Work Phone: 1(365)859-[facility] HospitalTaqedqpeum03-84-8892 11:34-0400Body voanws659.19 kgMima Duenas [employer]RAW[employer] Work Phone: [phone] [place], [place] [address]Hiiaobrjbr82-99-9205 11:34-0400Diastolic blood sliglzhn23 mm[Hg]Mima Duenas [employer] Work Phone: 1([phone])836-[address] [place], [place] [address]Mbvqqzktru57-42-8173 11:34-0400Systolic blood hywmadpt475 mm[Hg]Mima Duenas [employer]RAW[employer] Work Phone: [phone] [place], [place] [address]Zwhbzoyupy27-71-2022 10:01-0400Body mass index (BMI) [Ratio]36.79 kg/m2Amy Kwaku PA Work Phone: [phone] [place], [place] [address]Ftinuxfbue54-61-4626 10:01-0400Body isyhse343.66 kgAmy Kwaku PA Work Phone: [phone])042-[address] [place], [place] [address]Kkqhhqosep06-59-3435 10:01-0400Diastolic blood omhuvnay85 mm[Hg]Jojo Ames PA Work Phone: 1(920)178-[address] [place], [place] [address]Nfnttpivji43-83-8778 10:01-0400Systolic blood tomwqqml707 mm[Hg]Jojo Ames PA Work Phone: 1(751)461-[address] [place], [place] [address]Uozlgdsmgs08-07-5176 12:46-0400Body fbwngu790.3 cmEnrike Lindquist MD Work Phone: [phone])[address] [place], [place] 2861608-20-2025 12:46-0400Body mass index (BMI) [Ratio]35.84 kg/v8KannddieEnrike Lindquist MD Work Phone: [phone])[address] [place], [place] 2861608-20-2025 12:46-0400Body .57 kgEnrike Lindquist MD Work Phone: 1(487)[address] [place], [place] 2861608-20-2025 12:46-0400Diastolic blood mm[Hg]Enrike Lindquist MD Work Phone: 1(797)[address] [place], [place] 2861608-20-2025 12:46-0400Heart rate 73 /minEnrike Lindquist MD Work Phone: [phone])[address] [place], [place] 2861608-20-2025 12:46-0400Systolic blood lpbaurvs80 mm[Hg]Enrike Lindquist MD Work Phone: 1(855)[address] [place], [place] 2861608-17-2025 23:35-0400Body amsrny219.34 cmAmanda Shethrbacher SOFTWARE DEVELOPER Work Phone: [facility]08-17-2025 23:35-0400 Body rujfpxuzgwx46.2 [degF]Amanda Ford SOFTWARE DEVELOPER Work Phone: [facility]08-17-2025 23:35-0400 Body gthruq678.66 kgAmanda Shethrbacher SOFTWARE DEVELOPER Work Phone: [facility]08-17-2025 23:35-0400 Diastolic blood mm[Hg]Amanda Ford SOFTWARE DEVELOPER Work Phone: [facility]08-17-2025 23:35-0400 Heart rate75 /minArtemionnedmundo Shethrbacher SOFTWARE DEVELOPER Work Phone: [facility]08-17-2025 23:35-0400 Respiratory rate16 /minAmanda Shethrbacher SOFTWARE DEVELOPER Work Phone: [facility]08-17-2025 23:35-0400 SaO2% (BldA) [Mass fraction]97 %Amanda Ford SOFTWARE DEVELOPER Work Phone: [facility]08-17-2025 23:35-0400 Systolic blood aaublodz388 mm[Hg]Amanda Hahnnikkie SOFTWARE DEVELOPER Work Phone: [facility]08-05-2025 10:37-0400 Body zyslzj598.1216 kgAmanda Ford SOFTWARE DEVELOPER Work Phone: [facility]08-05-2025 09:10-0400 Body mass index (BMI) [Ratio]35.7 kg/d6Wengm Juan DO Work Phone: [facility] HospitalOuwygzprwv24-42-4714 09:10-0400Body lossci595.12 kgCorey Juan DO Work Phone: [facility] HospitalFmoujqbqch39-22-3646 09:10-0400Diastolic blood zkyclsuk53 mm[Hg]Les Juan DO Work Phone: [facility] HospitalCzxovdvmlm73-29-6024 09:10-0400Systolic blood eadniebf313 mm[Hg]Les Juan DO Work Phone: [facility] HospitalYezvhblijf46-82-8149 11:28-0400Body mass index (BMI) [Ratio]31.24 kg/u1Bnidb Juan DO Work Phone: [facility] HospitalRqyopctgma71-29-7541 11:28-0400Body eryuti653.61 kgCorey Juan DO Work Phone: [facility] HospitalPnqjvxolgi68-63-0773 11:28-0400Diastolic blood ldkuftdo59 mm[Hg]Les Juan DO Work Phone: [facility] HospitalEarfhfansu60-61-1794 11:28-0400Systolic blood whlzhiul577 mm[Hg]Les Juan DO Work Phone: [facility] HospitalFpbzwbfgrl83-04-6876 13:34-0400Diastolic blood mzgibhuy78 mm[Hg]Amanda Logan SOFTWARE DEVELOPER Work Phone: [facility]07-03-2025 13:34-0400 Heart rate60 /Juan Pablo Logan SOFTWARE DEVELOPER Work Phone: [phone]07-03-2025 13:34-0400 Respiratory rate18 /Jhonnyaicha Ford SOFTWARE DEVELOPER Work Phone: [phone]07-03-2025 13:34-0400 SaO2% (BldA) [Mass fraction]99 %Amanda Logan SOFTWARE DEVELOPER Work Phone: [phone])585-[facility]07-03-2025 13:34-0400 Systolic blood jlnsoyzu368 mm[Hg]Amanda Shethbilly SOFTWARE DEVELOPER Work Phone: 1(668)415-[address] [place], [place] 7371707-03-2025 10:38-0400 Body bwfvra587.34 cmAmanda Shethbilly SOFTWARE DEVELOPER Work Phone: [phone]07-03-2025 10:38-0400 Body jpcbzazdxug93.1 [degF]Amanda Shethbilly SOFTWARE DEVELOPER Work Phone: [phone]07-03-2025 10:38-0400 Body .85 kgAmanda Shethbilly SOFTWARE DEVELOPER Work Phone: [phone]06-05-2025 15:06-0400 Body mass index (BMI) [Ratio]31.24 kg/m2[facility]06-05-2025 15:06-0400Body cuicae878.61 kgDe[facility]06-05-2025 15:06-0400 Diastolic blood jethnhny84 mm[Hg][facility]06-05-2025 15:06-0400 Systolic blood faicvenu246 mm[Hg][facility]05-07-2025 10:04-0400 Body dlifrw253.3 Kam Sinclair MD Work Phone: [phone]05-07-2025 10:04-0400Body mass index (BMI) [Ratio]29.99 kg/w1YxrudDarleen Sinclair MD Work Phone: 1(310)[address] [place], [place] 7485505-07-2025 10:04-0400Body sfbrol35.52 kgDarleen Sinclair MD Work Phone: [phone])[address] [place], [place] 7485505-07-2025 10:04-0400Diastolic blood dvemwhdw44 mm[Hg]Darleen Sinclair MD Work Phone: 1(214)[address] [place], [place] 7485505-07-2025 10:04-0400Heart rate67 /min Darleen Sinclair MD Work Phone: 1(513)[address] [place], [place] 7485505-07-2025 10:04-0400Respiratory rate16 /minDarleen Sinclair MD Work Phone: 1(166)[address] [place], [place] 7485505-07-2025 10:04-2343GmU5% (BldA) [Mass fraction]99 %Darleen Sinclair MD Work Phone: 1(660)[address] [place], [place] 7485505-07-2025 10:04-0400Systolic blood fikzwvfo527 mm[Hg]Darleen Sinclair MD Work Phone: 1(684)[address] [place], [place] 7485501-09-2025 08:32-0500Body eyrqdr659.34 cm[facility]01-09-2025 08:32-0500Body mass index (BMI) [Ratio]30.4 kg/g0TnthpjrrmGalion Community Hospital01-09-2025 08:32-0500Body kpnbuzrwgmo60.3 [degF][facility]01-09-2025 08:32-0500Body axnjjp01.99 kgGal[facility] Hospital01-09-2025 08:32-0500Diastolic blood yghktpgr04 mm[Hg][facility]01-09-2025 08:32-0500 Heart rate73 /minGalion Community Hospital01-09-2025 08:32-9824QuU3% (BldA) [Mass fraction]98 %[facility]01-09-2025 08:32-0500 Systolic blood vdkbvyip450 mm[Hg][facility]11-12-2024 14:03-0500Body rouijr499.3 cmIgnacio Guy MD Work Phone: [phone] [facility] CenterCgrldb67-52-9366 14:03-0500Body mass index (BMI) [Ratio]30.23 kg/p4RerfpqIgnacio Guy MD Work Phone: [facility] Uxovcs43-56-8414 14:03-0500Body tmqado06.3 kgIgnacio Guy MD Work Phone: [facility] Tpntgz50-12-5420 15:12-0500Body mass index (BMI) [Ratio]31.71 kg/b5Dlyvn Juan DO Work Phone: [facility] HospitalAdxbaewsry63-23-6737 15:12-0500Body biejst388.25 kgCorey Juan DO Work Phone: [facility] HospitalAleezdpgys82-50-9341 15:12-0500Diastolic blood fcednjqv74 mm[Hg]Les Juan DO Work Phone: [facility] HospitalMtzeacesgt06-66-4219 15:12-0500Systolic blood uhketcap830 mm[Hg]Les Juan DO Work Phone: [facility] HospitalHznpbgqvbf76-78-8139 11:46-0400Diastolic blood fhvzbujy57 mm[Hg]MELY Ford Work Phone: [facility]08-21-2024 11:46-0400 Heart rate76 /minAPRTanja Ford Work Phone: [facility]08-21-2024 11:46-0400 Respiratory rate16 /minAPRTanja Ford Work Phone: [facility]08-21-2024 11:46-0400 SaO2% (BldA) [Mass fraction]99 %MELY Ford Work Phone: [facility]08-21-2024 11:46-0400 Systolic blood pabhegqz813 mm[Hg]MELY Ford Work Phone: [phone]08-21-2024 10:20-0400 Body mwvpezlpptg65 [degF]MELY Ford Work Phone: [phone])[phone]08-21-2024 09:55-0400 Inhaled oxygen flow rate3 L/minMELY Ford Work Phone: [phone]08-21-2024 06:29-0400 Body itagwm275.34 Justo Hahnr Work Phone: [phone]08-21-2024 06:29-0400 Body suxvid13.25 kgMELY Hahnr Work Phone: [phone]07-16-2024 11:56-0400 Body .34 Justo Hahnr Work Phone: 1(674)[address]07-16-2024 11:56-0400 Body mass index (BMI) [Ratio]28.8 kg/m2MELY Hahnr Work Phone: [phone]07-16-2024 11:56-0400 Body .89 kgMELY Hahnr Work Phone: 1(362)934-[address] [place], [place] 7371702-21-2024 14:56-0500 Body puamgd740.34 cmGal[facility] Hospital02-21-2024 14:56-0500Body mass index (BMI) [Ratio]29.4 kg/h5XimwmablwGalion Community Hospital02-21-2024 14:56-0500Body .7 kgGal[facility] Hospital02-21-2024 14:56-0500Diastolic blood puvdcxqk23 mm[Hg][facility] 06-08-2023 14:56-0500Heart rate51 /minGalion Community Hospital 06-08-2023 14:56-9432XbJ8% (BldA) [Mass fraction]98 %[facility]02-21-2024 14:56-0500Systolic blood jemqpuwe593 mm[Hg][facility]01-30-2024 14:30-0500Body cefmsp784.34 cmGuillepamela Millerley Other [facility]01-30-2024 14:30-0500 Body mass index (BMI) [Ratio]27.47 kg/c2XuxsgRomeo Santana Other [employer] Other 01-30-2024 14:30-0500Body .36 kgGuillepamela Esther Other [employer] Other 01-30-2024 14:30-0500Body icunib59.35 kgGal[facility] Hospital10-23-2023 14:30-0400Body bxrrad043.34 cmPetr Lay Other [employer] Other 10-23-2023 14:30-0400Body mass index (BMI) [Ratio] 27.61 kg/q1HoijoxzPetr Lay Other [employer] Other 10-23-2023 14:30-0400Body kvpmblcdhoj72.1 [degF] Petr Lay Other [employer] Other 10-23-2023 14:30-0400Body ashptf55.81 kgPetr Lay Other [employer] Other 10-23-2023 14:30-0400Diastolic blood sdlfxvoj19 mm[Hg] Petr Lay Other [employer] Other 10-23-2023 14:30-2318XfW5% (BldA) [Mass fraction]99 % Petr Lay Other [employer] Other 10-23-2023 14:30-0400Systolic blood cabxkzoo211 mm[Hg] Petr Lay Other [employer] Other 09-11-2023 11:30-0400Body .34 cmMajose guadalupe Lay Other [employer] Other 09-11-2023 11:30-0400Body mass index (BMI) [Ratio] 28.03 kg/m3GjcflkcPetr Lay Other [employer] Other 09-11-2023 11:30-0400Body hdkobg80.17 kgMajose guadalupe Lay Other [employer] Other 09-11-2023 11:30-0400Diastolic blood mm[Hg] Petr Lay Other [employer] Other 09-11-2023 11:30-0400Respiratory rate18 /minMattnany Lay Other [employer] Other 09-11-2023 11:30-3968KmO2% (BldA) [Mass fraction]99 % Petr Lay Other [employer] Other 09-11-2023 11:30-0400Systolic blood ynwtcykh309 mm[Hg] Petr Lay Other [employer] Other 06-26-2023 13:30-0400Body focfdd166.34 cmMajose guadalupe Lay Other [employer] Other 06-26-2023 13:30-0400Body mass index (BMI) [Ratio] 28.78 kg/a5XfmairjPetr Lay Other [employer] Other 06-26-2023 13:30-0400Body emdhmm84.62 kgPetr Lay Other [employer] Other 06-26-2023 13:30-0400Diastolic blood ujrzkuxk84 mm[Hg] Petr Lay Other [employer] Other 06-26-2023 13:30-0400Respiratory rate18 /minPetr Lay Other [employer] Other 06-26-2023 13:30-4675WkF5% (BldA) [Mass fraction]98 % Petr Lay Other [employer] Other 06-26-2023 13:30-0400Systolic blood tivuqbzp808 mm[Hg] Petr Lay Other [employer] Other 06-15-2023 08:00-0400Body whgduo130.34 cmJephamifer Merylrbacher Other [employer] Other 06-15-2023 08:00-0400Body mass index (BMI) [Ratio] 28.03 kg/i1Shfowklh Rohrbacher Other [employer] Other 06-15-2023 08:00-0400Body bskpoj98.17 kgJephamifer Rohrbacher Other [employer] Other 06-15-2023 08:00-0400Diastolic blood zdowehej38 mm[Hg] Amanda Rosarioacher Other [employer] Other 06-15-2023 08:00-5299RjH0% (BldA) [Mass fraction]95 % Amanda Jovanir Other [employer] Other 06-15-2023 08:00-0400Systolic blood zfccwosp182 mm[Hg] Amanda Jovanir Other [employer] Other 05-10-2023 15:30-0400Body ofwheb441.34 cmAmanda Merylrbacher Other [employer] Other 05-10-2023 15:30-0400Body mass index (BMI) [Ratio] 29.15 kg/f4Jomlrfro Merylrbacher Other [employer] Other 05-10-2023 15:30-0400Body .8 kgAmanda Merylrbacher Other [employer] Other 05-10-2023 15:30-0400Diastolic blood rkebffwe18 mm[Hg] Amanda Rosarioacher Other [employer] Other 05-10-2023 15:30-0400Systolic blood swsjinlj269 mm[Hg] Amanda Merylrbacher Other [employer] Other 05-05-2023 11:00-0400Body .34 cmAmanda Shethrbacher Other [employer] Other 05-05-2023 11:00-0400Body mass index (BMI) [Ratio] 28.73 kg/c7MyvpwvrlAmanda Ford Other [employer] Other 05-05-2023 11:00-0400Body pqfkeu32.44 kgAmanda Ford Other [employer] Other 05-05-2023 11:00-0400Diastolic blood gqpryqzr04 mm[Hg] Amanda Shethbilly Other [employer] Other 05-05-2023 11:00-4272RpU8% (BldA) [Mass fraction]100 % Amanda Logan Other [employer] Other 05-05-2023 11:00-0400Systolic blood gsmzgpdi691 mm[Hg] Amanda Logan Other [employer] Other 02-24-2023 16:43-0500Body flercczjxut63.1 [degF]MD Mariam Appiah Work Phone: [facility]02-24-2023 16:43-0500 Diastolic blood stfjzeyw19 mm[Hg]MD Mariam Appiah Work Phone: [facility]02-24-2023 16:43-0500 Heart rate60 /minMD Mariam Appiah Work Phone: [facility]02-24-2023 16:43-0500 Respiratory rate16 /minMD Mariam Appiah Work Phone: [facility]02-24-2023 16:43-0500 SaO2% (BldA) [Mass fraction]100 %MD Mariam Appiah Work Phone: 1(330)[address] [place], [place] 2083302-24-2023 16:43-0500 Systolic blood lumuerub456 mm[Hg]MD Mariam Appiah Work Phone: 1(625)[address] [place], [place] 2083302-24-2023 09:40-0500 Body lhmnol291.34 cmMD Mariam Appiah Work Phone: 1([phone] [place], [place] 2083302-24-2023 05:42-0500 Body umwodl64 kgMD Mariam Appiah Work Phone: 1(861)[address] [place], [place] 2083302-23-2023 17:55-0500 Body jtmntadvpkk23.1 [degF]MD Mariam Appiah Work Phone: 1(705)[address] [place], [place] 2083302-23-2023 17:55-0500 Diastolic blood uuiyopkm02 mm[Hg]MD Mariam Appiah Work Phone: 1(716)[address] [place], [place] 2083302-23-2023 17:55-0500 Heart rate62 /minMD Mariam Appiah Work Phone: 1(493)[address] [place], [place] 2083302-23-2023 17:55-0500 Respiratory rate18 /minMD Mariam Appiah Work Phone: 1(833)[address] [place], [place] 2083302-23-2023 17:55-0500 SaO2% (BldA) [Mass fraction]100 %MD Mariam Appiah Work Phone: 1(724)[address] [place], [place] 2083302-23-2023 17:55-0500 Systolic blood efxuahew372 mm[Hg]MD Mariam Appiah Work Phone: 1(626)[address] [place], [place] 2083302-23-2023 14:22-0500 Body hyyysy865.34 cmMD Mariam Appiah Work Phone: 1(268)[address] [place], [place] 2083302-23-2023 14:22-0500 Body .7 kgMD Mariam Appiah Work Phone: 1(504)[address] [place], [place] 2083301-04-2023 15:00-0500 Body qosnap287.34 cmAmanda Ponceacher Other [employer] Other 01-04-2023 15:00-0500Body mass index (BMI) [Ratio] 27.81 kg/l2NywtdjfeAmanda Shethbilly Other [employer] Other 01-04-2023 15:00-0500Body hebzhvvhwvo34.2 [degF] Amanda Logan Other [employer] Other 01-04-2023 15:00-0500Body ewsxrd51.45 kgAmanda Shethsarahachenikkie Other [employer] Other 01-04-2023 15:00-0500Diastolic blood xmwqehsi12 mm[Hg] Amanda Logan Other [employer] Other 01-04-2023 15:00-0500Respiratory rate18 /minAmanda Shethbilly Other [employer] Other 01-04-2023 15:00-6245OlW9% (BldA) [Mass fraction]99 % Amandarufino Ford Other [employer] Other 01-04-2023 15:00-0500Systolic blood gbksjcev683 mm[Hg] Amanda Ford Other [employer] Other 12-24-2022 21:41-0500Diastolic blood gbmemsrr07 mm[Hg] MD Mariam Appiah Work Phone: [facility]12-24-2022 21:41-0500 Systolic blood ndavfylg048 mm[Hg]MD Mariam Appiah Work Phone: 1(395)[address] [place], [place] 2083312-24-2022 18:14-0500 Body .34 cmMD Mariam Appiah Work Phone: 1(641)[address] [place], [place] 2083312-24-2022 18:14-0500 Body bstivlzozqv85.1 [degF]MD Mariam Appiah Work Phone: 1(899)[address] [place], [place] 2083312-24-2022 18:14-0500 Body ljevxe28 kgMD Mariam Appiah Work Phone: 1(993)[address] [place], [place] 2083312-24-2022 18:14-0500 Heart vjgl241 /minMD Mariam Appiah Work Phone: 1(081)[address] [place], [place] 2083312-24-2022 18:14-0500 Respiratory rate18 /minMD Mariam Appiah Work Phone: 1(470)[address] [place], [place] 2083312-24-2022 18:14-0500 SaO2% (BldA) [Mass fraction]100 %MD Mariam Appiah Work Phone: 1(253)[address] [place], [place] 2083312-22-2022 17:15-0500 Body syxnknneoth05.5 [degF]MD Mariam Appiah Work Phone: 1(128)[address] [place], [place] 2083312-22-2022 17:15-0500 Diastolic blood agujsvhw48 mm[Hg]MD Mariam Appiah Work Phone: 1(514)[address] [place], [place] 2083312-22-2022 17:15-0500 Heart rate59 /minMD Mariam Appiah Work Phone: 1(294)[address] [place], [place] 2083312-22-2022 17:15-0500 Respiratory rate18 /minMD Mariam Appiah Work Phone: 1(889)[address] [place], [place] 2083312-22-2022 17:15-0500 SaO2% (BldA) [Mass fraction]100 %MD Mariam Appiah Work Phone: 1(006)[address] [place] [address] Vtlvfu00-27-3374 17:15-0500 Systolic blood mlptgcla666 mm[Hg]MD Mariam Appiah Work Phone: [facility]12-22-2022 14:33-0500 Body iiqclk773.34 cmMD Mariam Appiah Work Phone: [facility]12-22-2022 14:33-0500 Body .1 kgMD Mariam Appiah Work Phone: [facility]12-06-2022 15:30-0500 Body mvojjc858.34 cmAmanda Shethrbacher Other [employer] Other 12-06-2022 15:30-0500Body mass index (BMI) [Ratio] 27.05 kg/x7KxjqgectAmanda Ponceacher Other [employer] Other 12-06-2022 15:30-0500Body ajmmko08 kgJeaicha Merylrbacher Other [employer] Other 12-06-2022 15:30-0500Diastolic blood mm[Hg] Amanda Ford Other [employer] Other 12-06-2022 15:30-2551JkB7% (BldA) [Mass fraction]98 % Amanda Ford Other [employer] Other 12-06-2022 15:30-0500Systolic blood mxuedqhc263 mm[Hg] Amanda Ford Other [employer] Other 10-24-2022 10:00-0400Body .34 cmAmanda Shethrbacher Other [employer] [facility] [employer] Other 10-24-2022 10:00-0400Body mass index (BMI) [Ratio] 27.47 kg/u1PvdldgheAmanda Ford Other [employer] [facility] [employer] Other 10-24-2022 10:00-0400Body isfhqe54.36 kgAmanda Shethsarahangelnikkie Other [facility] [employer] Other 10-24-2022 10:00-0400Diastolic blood wyjnbzpf39 mm[Hg] Amanda Logan Other [facility] [employer] Other 10-24-2022 10:00-0400Systolic blood fzbbjxob383 mm[Hg] Amanda Logan Other [place] [employer] Other 05-17-2022 14:38-0400Blood Pressure LocationSamir Thompson [facility]-17-2022 14:38-0400 Diastolic blood kosqchax57 mm[Hg][facility]05-17-2022 14:38-0400Heart rate61 /minSamir Thompson [facility]05-17-2022 14:38-0400 Respiratory rate18 /minSamir Thompson [facility]05-17-2022 14:38-8943YcL1% (BldA) [Mass fraction]100 %Samir Thompson [facility]05-17-2022 14:38-0400 Systolic blood ziavxboh377 mm[Hg][facility]04-08-2022 14:39-0400Blood Pressure LocationSamir Thompson [facility]04-08-2022 14:39-0400 Diastolic blood rpgzkars82 mm[Hg]Samir [facility]04-08-2022 14:39-0400Heart rate65 /minRogean Jay [facility]04-08-2022 14:39-0400 Respiratory rate18 /minSamir [facility]04-08-2022 14:39-6728CwM7% (BldA) [Mass fraction]100 %Samir Thompson [facility]04-08-2022 14:39-0400 Systolic blood mm[Hg]Sam[facility]03-31-2022 11:00-0400Body .34 cmArtemioaicha Ponceachenikkie Other [employer] Other 03-31-2022 11:00-0400Body mass index (BMI) [Ratio] 29.15 kg/a4AhwxoklcAmanda Hahnr Other [employer] Other 03-31-2022 11:00-0400Body cptuto40.8 kgAmanda Ponceacher Other [employer] Other 03-31-2022 11:00-0400Diastolic blood xusqjyeb23 mm[Hg] Amanda Ford Other [employer] Other 03-31-2022 11:00-3103ZsA8% (BldA) [Mass fraction]98 % Amanda Ford Other [employer] Other 03-31-2022 11:00-0400Systolic blood hmrjiywl446 mm[Hg] Amanda Ford Other [employer] Other 01-21-2021 08:20-0500Body Jsxzrcuzwuo15.7 [degF] [facility], [place], IJ01-95-2357 08:20-0500BP Tjnbdobvs57 mm[Hg] [facility] [place], RD50-71-6598 08:20-0500BP Stitxsvm166 mm[Hg] [facility] [place], FI08-67-5937 08:20-0500Pulse (Heart Rate)101 /minEast [facility] [place], DF31-95-2055 08:20-0500Pulse Bntkftgn83 % [facility] [place], KE79-78-9629 08:20-0500Respiratory Rate19 /min [facility], [place], [id number] 08:51-0500BMI (Body Mass Index) 58.86 kg/g6FzukdceEast [facility], [place], XY32-04-6412 08:51-0500Body weight 191.42 kgEast [facility], [place], [id number] 08:51-6133Dokkgd719.3 cm [facility], [place], [id number] 13:30-0500BMI (Body Mass Index) 61.79 kg/m2[address], [id number] 13:30-0500Body Ltfevpakzkk07.11 [degF][address], [id number] 13:30-0500Body dotgcr268.94 kgStvz 2 [facility], [place]61-90-4181 13:30-0500BP Issghwciy12 mm[Hg][address], [id number] 13:30-0500BP Hxkxgppi399 mm[Hg][address] [place] [address], [id number] 13:30-2360Rpbvhf924.[address] [place] [address], BO70-84-2012 13:30-0500Pulse (Heart Rate)104 /minStvz [address] [place] [address], AM12-87-7096 13:30-0500Pulse Iimbilfr50 %[address] [place] [address], [id number] 13:30-0500 Respiratory Rate18 /minStvz [address] [place] [address], [place] Encounters Encounter DateEncounter TypeCare ProviderFacilityStart: 02-26-2025 End: 94-85-2341Cajqpxbll Result EncounterCorey Juan DO Work Phone: [facility]oms External Department UnsolicitedStart: 02-26-2025 End: 78-31-0589Lktvxflmk Result EncounterCorey Juan DO Work Phone: [facility] External Department UnsolicitedStart: 02-19-2025 End: 37-35-8738Wdudyw flowsheetCorey Juan DO Work Phone: [facility] [place] OBGYNStart: 02-19-2025 End: 63-89-0347Xtyxfa flowsheetCorey Juan DO Work Phone: [facility] [place] OBGYNStart: 02-19-2025 End: 31-32-1354Grcmsftaq Result EncounterCorey Juan DO Work Phone: noms External Department UnsolicitedStart: 02-19-2025 End: 36-95-6661bhyujgyzojWIRVR FAZIONot AvailableStart: 02-19-2025 End: 60-73-5166Qmlkws outpatient visit 15 minutesCorey Juan DO Work Phone: noms [place] OBGYNComment on above:Third trimester ([facility]); 31 weeks gestation of ([facility]); TSH (thyroid-stimulating hormone deficiency); H/O gastric sleeveStart: 02-07-2025 End: 77-07-0732RfsoseMolly Whitaker [facility] 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 Vulnerability Researcher - Emily Bel AirComment on above:Hypothyroidism affecting in second trimester (Primary Dx); headache in second trimester; Previous gastric bypass affecting , antepartum; Bipolar disease during in second trimester ([facility]Start: 02-06-2025 End: 07-64-8683Orispe outpatient visit 15 minutesJojo OGDEN Work Phone: [facility] [place] OBGYNComment on above:Third trimester ([facility]); 29 weeks gestation of ([facility])Start: 02-06-2025 End: 28-86-7163suetwomalnVAR RAMEYNot AvailableStart: 02-06-2025 End: 98-94-9254Cdgibx Shakeel OGDEN Work Phone: [facility] [place] OBGYNStart: 02-06-2025 End: 59-25-2442Pswhux Shakeel OGDEN Work Phone: [facility] [place] OBGYNStart: 01-30-2025 End: 68-48-7431kkhffnzujcCIBBZQOG TONYERMalgorzata AvailableStart: 01-16-2025 End: 76-17-0809Jnylbk Eliecer Duenas FRENCH DRAWER Work Phone: [facility] [place] OBGYNStart: 01-16-2025 End: 28-39-9004Daalwz Eliecer Duenas FRENCH DRAWER Work Phone: [facility] [place] OBGYNStart: 01-16-2025 End: 24-40-1505Bcrjvu outpatient visit 15 minutesMima Duenas NP Work Phone: [facility] [place] OBGYNComment on above:26 weeks gestation of ([facility]); Second trimester ([facility]); TSH (thyroid-stimulating hormone deficiency)Start: 01-16-2025 End: 50-00-4735kitidnaspbLHJYVGID EBERLYNot AvailableStart: 01-11-2025 End: 56-74-3254Uctgoualu Result EncounterCorey Juan DO Work Phone: noms External Department UnsolicitedStart: 01-11-2025 End: 00-51-3049Abqpmthhf Result EncounterCorey Juan DO Work Phone: noms External Department UnsolicitedStart: 01-09-2025 End: 78-42-2256Xwmtjxcki Result EncounterAmy Kwaku OGDEN Work Phone: noms External Department UnsolicitedStart: 01-09-2025 End: 72-29-4973Upvrsjmzq Result EncounterAmy Kwaku OGDEN Work Phone: noms External Department UnsolicitedStart: 01-04-2025 End: 44-84-0760Mjmski Rosanna Dick RNMaternal- Medicine at [facility] HospitalComment on above:Previous gastric bypass affecting , antepartum (Primary Dx); Hypothyroidism affecting in second trimester; Bipolar disease during in second trimester ([facility]); Obesity affecting in second trimester, unspecified obesity typeStart: 01-03-2025 End: 43-92-4252jrbcpiwnjtTC [facility]CP [facility] PPGStart: 01-03-2025 End: 04-64-8284Ecvdyivll encounterRoslyn Griffin RNMaternal Medicine [facility] CentertonStart: 12-19-2024 End: 12-50-1007Thrcvp flowsheetJojo OGDEN Work Phone: [facility] [place] OBGYNStart: 12-19-2024 End: 69-68-8374Mwoblm flowsheetJojo OGDEN Work Phone: [facility] [place] OBGYNStart: 12-19-2024 End: 01-42-4358Lwnltk outpatient visit 15 minutesJojo OGDEN Work Phone: [facility] [place] OBGYNComment on above:22 weeks gestation of ([facility]); Second trimester ([facility]); Thyroid disease ; H/O gastric sleeve; H/O iron deficiency anemia; Diabetes mellitus screeningStart: 12-19-2024 End: 15-13-0356buszmqzuiqXOJ RAMEYNot AvailableStart: 12-15-2024 End: 89-89-4696Mgfydxudl Result EncounterCorey Juan DO Work Phone: noms External Department UnsolicitedStart: 12-15-2024 End: 42-69-6622Qjsmtdxwh Result EncounterCorey Juan DO Work Phone: noms External Department UnsolicitedStart: 12-05-2024 End: 46-10-2648Zeafer consultation new/estab patient 80 Bal Lindquist MD Work Phone: [phone]-Knvim Medicine at [facility] Comment on above:20 weeks gestation of (Primary Dx); Previous gastric bypass affecting , antepartum; Obesity affecting in second trimester, unspecified obesity type; Hypothyroidism affecting in second trimester; Bipolar disease during in second trimester ([facility]); headache in second trimesterStart: 12-05-2024 End: 02-10-1302Longhi OnlyChiquita Shen RNMaternal- Medicine at [facility] HospitalComment on above:Previous gastric bypass affecting , antepartum (Primary Dx); Hypothyroidism affecting in second trimester; Bipolar disease during in second trimester ([facility]); Obesity affecting in second trimester, unspecified obesity type; Encounter for supervision of resulting from assisted reproductive technology, antepartumStart: 12-04-2024 End: 10-47-7765eugfovanlgVQMHG FAZIONot AvailableStart: 12-02-2024 End: 93-42-1393Isfjhrx encounter procedureRichard A Visci DO-[address] [employer] - O/P Start: 12-02-2024 End: 17-08-0006dfpfucikjmXinhymke Rohrbacher APRN Work Phone: [facility] Work Phone: Start: 12-02-2024 End: 76-87-9162Pkzynamq Result EncounterRichard A Visci DO Work Phone: noms External Department UnsolicitedStart: 12-02-2024 End: 18-31-1305Qdayguwm Result EncounterRichard A Visci DO Work Phone: NOGX External Department UnsolicitedStart: 12-01-2024 Non-patient / Non-visit([place]) Elizabeth MCDERMOTT-[facility] Work Phone: Start: 11-30-2024 End: 31-96-6478wmakveuoucAixdgmhj Rohrbacher SOFTWARE DEVELOPER Work Phone: [facility] Work Phone: Start: 11-30-2024 End: 81-44-1119Tntmvnlt ReferredChris Chapman DO-LAB [facility] Start: 59-66-2909Kzk-patient / Non-visitChris Chapman DO-[facility] Work Phone: Start: 11-20-2024 End: 50-19-0834Gssywp flowsheetCorey Juan DO Work Phone: [facility] [place] OBGYNStart: 11-20-2024 End: 90-32-8311Urknmc flowsheetCorey Juan DO Work Phone: [facility] [place] [facility]BGYNStart: 11-20-2024 End: 83-11-0497Gkabnfqzj Result EncounterCorey Juan DO Work Phone: noms External Department UnsolicitedStart: 11-20-2024 End: 58-64-7571Bdohwtvw Result EncounterCorey Juan DO Work Phone: noms External Department UnsolicitedStart: 11-20-2024 Non-patient / Non-visitCorey Juan-[facility] Work Phone: Start: 11-20-2024 End: 95-18-4004Efxfnob encounter procedureCorey Juan DO Work Phone: noms HealthcareStart: 11-20-2024 End: 13-45-9652Kpzbhdje preventive med est patient 18-39 yrsCorey Juan DO Work Phone: [facility] [place] OBGYNComment on above:Well woman exam with routine gynecological exam; Exposure to STD; Second trimester ([facility]); 18 weeks gestation of ([facility]); Need for maternal serum alpha-protein (MSAFP) screening ([facility]); Screening, , for anatomic survey ([facility]); Thyroid diseaseStart: 11-20-2024 End: 46-50-6747pjiugsgdtzYJNCO FAZIONot AvailableStart: 84-15-2101Evp-patient / Non-visitArtemiofito Jayla Chapman DO-[facility] Work Phone: Start: 10-26-2024 End: 46-84-3163Zzstwd OnlyNot In System Ref ProvMaternal- Medicine at [facility] Hospitaltart: 10-22-2024 End: 63-06-2160Rfvopr outpatient visit 15 minutesCorey Juan DO Work Phone: noms BCP OBComment on above:13 weeks gestation of ([facility]); Second trimester ([facility]); Thyroid disease ; H/O gastric sleeve; H/O iron deficiency anemia; resulting from in vitro fertilization in first trimester ([facility]) Start: 10-22-2024 End: 94-97-5626scksgpuqytZWVDS FAZIONot AvailableStart: 10-18-2024 End: 05-71-7922Fmaokruew department patient visitAmanda Ford SOFTWARE DEVELOPER Work Phone: [phone]-Pzprcqlmm Room Work Phone: Start: 10-10-2024 End: 35-17-0469Ejwsybvmm Result EncounterCorey Juan DO Work Phone: noms External Department UnsolicitedStart: 10-10-2024 End: 18-81-2524Iqfpevulo Result EncounterCorey Juan DO Work Phone: noms External Department UnsolicitedStart: 09-26-2024 End: 70-64-3620oidyupejscKlzkuwcg MerylrbacherFacility:[facility] HospitalStart: 09-20-2024 End: 98-77-1507Utnnjf outpatient visit 5 minutesNoms Bcp Ob Juan NurseNOMS BCP OBComment on above:GA: 2m5jCisbf: 09-20-2024 End: 57-07-2090yutfvnfxjoGQXXW SABBAGHNot AvailableStart: 09-03-2024 End: 49-32-8634Exropll evaluation of patient and reportUs Tech 1 [facility] Rej Work Phone: Reproductive Endocrinology InfertilityComment on above:Early stage of ([facility])Start: 09-03-2024 End: 87-24-9605jpcwhgvejcFFPSKIN G MICKEYFacility:[facility] Start: 08-28-2024 End: 97-05-5988Mgfktun evaluation of patient and reportUs Tech 2 [facility] Beac Work Phone: Reproductive Endocrinology InfertilityComment on above: resulting from assisted reproductive technology in first trimester ([facility])Start: 08-28-2024 End: 71-79-7507nujjqbddimRRSCGBU G MICKEYFacility:[facility] Start: 08-24-2024 End: 67-94-8287Bljmmwvyb encounterLiliana G David SOFTWARE DEVELOPER.ACCESSORIES REPAIRER Work Phone: Reproductive Endocrinology InfertilityComment on above:Patient QuestionStart: 08-23-2024 End: 82-29-6281Wzqsvrlwp encounterLiliana G David SOFTWARE DEVELOPER.ACCESSORIES REPAIRER Work Phone: Reproductive Endocrinology InfertilityComment on above:PainStart: 08-22-2024 End: 26-30-8796Gedzxjforrest Sinclair MD Work Phone: noms ENDOCRINOLOGYStart: 08-22-2024 End: 78-50-3100Djnqmlforrest Sinclair MD Work Phone: noms ENDOCRINOLOGYStart: 08-22-2024 End: 32-51-3141Itadxn outpatient visit 25 minutesDarleen Sinclair MD Work Phone: N[facility] SH ENDOCRINOLOGYComment on above:Abnormal thyroid function test (Primary Dx); H/O gastric bypass; 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CMS/HCC); Vitamin D deficiencyStart: 08-22-2024 End: 68-57-1958zoeijhmeesEIGGTSp Andrade AvailableStart: 08-20-2024 End: 11-09-1612Fwrrpsnxppev consultation with [place] Hernandez APRN.ACCESSORIES REPAIRER Work Phone: Reproductive Endocrinology InfertilityStart: 08-20-2024 End: 85-19-2547nhffpttpurLoxjeyl G Mickey SOFTWARE DEVELOPER.ACCESSORIES REPAIRER Work Phone: Reproductive Endocrinology InfertilityComment on above: 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) (Primary Dx)Start: 08-18-2024 End: 48-75-6031htpbqqdyfvRcxbxlo G Mickey SOFTWARE DEVELOPER.ACCESSORIES REPAIRER Work Phone: Reproductive Endocrinology InfertilityComment on above:UltrasoundStart: 08-17-2024 End: 91-93-7092hwpwuqfzenWfoymoiw RohrbacherFacility:[facility] HospitalStart: 08-16-2024 End: 65-37-0502Aptbegmnj encounterLilimino Hernandez SOFTWARE DEVELOPER.ACCESSORIES REPAIRER Work Phone: Reproductive Endocrinology InfertilityComment on above:positive for pregnancyStart: 08-15-2024 End: 43-98-8846Hhnbdrjmd encounterLilimino Hernandez SOFTWARE DEVELOPER.ACCESSORIES REPAIRER Work Phone: Reproductive Endocrinology InfertilityComment on above:Patient QuestionStart: 08-15-2024 End: 47-49-0754qylzvcdgmwFomakmf G MickeyFacility:[facility] HospitalStart: 08-13-2024 End: 42-44-4271mnhjsdbzjpGjvyjev G MickeyFacility:[facility] HospitalStart: 07-31-2024 End: 84-84-3592ebkogrrusmWHUMXscugmlb:[facility] HospitalStart: 07-31-2024 End: 32-39-2419Kxajjdj encounter procedureAndrology Tail Sawyer Work Phone: [facility] Andrology LaboratoryComment on above: Procreative management (Primary Dx)Start: 07-30-2024 End: 32-15-9304Iwzcohlar encounterMelodie Hernandez SOFTWARE DEVELOPER.ACCESSORIES REPAIRER Work Phone: Reproductive Endocrinology InfertilityComment on above:Patient QuestionStart: 07-25-2024 End: 39-22-7909xkhzonilfpYCRIIrtaheov:[facility] HospitalStart: 07-07-2024 End: 59-76-8817ozcwoczxfkKLFPYCWE TANTIBHEDHYANGKULFacility:[facility] Centertart: 07-07-2024 End: 60-56-2709Ejpmndd encounter procedureAndrology Tail Sawyer Work Phone: [facility] Andrology LaboratoryComment on above: Procreative management (Primary Dx)Encounter for artificial insemination (Primary Dx)Start: 07-06-2024 End: 74-62-4089Asfviwtvd encounterMelodie Hernandez SOFTWARE DEVELOPER.ACCESSORIES REPAIRER Work Phone: Reproductive Endocrinology InfertilityComment on above:Patient calling back/re iui 07/07 unsureStart: 07-05-2024 End: 52-58-5064Cshbpiyzl encounterIgnacio Guy MD Work Phone: reproductive Endocrinology InfertilityComment on above:re iui this wknd/has cervical polyp questionStart: 07-04-2024 End: 50-49-3583Iqqvtusts encounterMelodie Hernandez SOFTWARE DEVELOPER.ACCESSORIES REPAIRER Work Phone: Reproductive Endocrinology InfertilityComment on above:Treatment PlanningStart: 07-04-2024 End: 05-89-9515knmhsixaaeAsxwglu G Mickey SOFTWARE DEVELOPER.ACCESSORIES REPAIRER Work Phone: Reproductive Endocrinology InfertilityComment on above:OvulatingStart: 07-04-2024 End: 88-48-4738Jcnbtuj encounter procedureUs Tech 3 [facility] Beac Work Phone: Reproductive Endocrinology InfertilityStart: 07-02-2024 End: 91-90-7659xhlwesrgwmZBMTLUX MICKEYFacility:[facility] HospitalStart: 06-29-2024 End: 52-65-7954bmzhgigfurQPMWPLX MICKEYFacility:[facility] HospitalStart: 06-23-2024 End: 35-16-6645ytmgzwtxryNqvmugx G David SOFTWARE DEVELOPER.ACCESSORIES REPAIRER Work Phone: Reproductive Endocrinology InfertilityComment on above:Negative test and possible hematomaStart: 06-09-2024 End: 58-20-3582qcoramgqjpTMQAIO ATTARANFacility:[facility] HospitalStart: 06-09-2024 End: 13-42-9837Hztmsxm encounter procedureAndrology Tail Sawyer Work Phone: [facility] Andrology LaboratoryComment on above: Procreative management (Primary Dx)Female infertility (Primary Dx)Start: 06-05-2024 End: 34-63-9348mjroablrbvMtueirx G David SOFTWARE DEVELOPER.ACCESSORIES REPAIRER Work Phone: Reproductive Endocrinology InfertilityStart: 06-05-2024 End: 16-58-6477Oxgdkzt encounter procedureLiliana G David SOFTWARE DEVELOPER.ACCESSORIES REPAIRER Work Phone: Reproductive Endocrinology InfertilityComment on above:IUI appointmentStart: 05-22-2024 End: 65-82-2102lysuuyxrzwKwntbrz G David SOFTWARE DEVELOPER.ACCESSORIES REPAIRER Work Phone: Reproductive Endocrinology InfertilityComment on above:Progesterone resultsStart: 05-21-2024 End: 07-79-7371quwrraotucPrtoxue G MickeyFacility:[facility] HospitalStart: 05-18-2024 End: 36-12-2576kbzzivudlePHZUIAJ MICKEYFacility:[facility] HospitalStart: 05-09-2024 End: 88-49-4759nbcvyxbrdwSpmqzfl G David SOFTWARE DEVELOPER.ACCESSORIES REPAIRER Work Phone: Reproductive Endocrinology InfertilityComment on above:Reproductive mgmt, 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)Start: 05-09-2024 End: 15-45-8518Srkgiewlldcr consultation with [place] Hernandez APRN.CNP Work Phone: Reproductive Endocrinology InfertilityStart: 05-06-2024 End: 59-24-2258wqgxgixdseFspkccjBridget Hernandez APRN.ACCESSORIES REPAIRER Work Phone: Reproductive Endocrinology InfertilityComment on above:Consent formStart: 05-02-2024 End: 22-08-3000Hnifglndhoee consultation with Rufino Enriquez PhD Work Phone: [facility] HospitalComment on above:Bipolar 1 disorder (Multi) (Primary Dx); Infertility counselingStart: 05-02-2024 End: 58-91-2486nllyadscxyVNEYNR Nikole [facility] AmbulatoryStart: 04-26-2024 End: 30-50-4330yktiqzyfjkIopbkyuuyBrecksville [facility] Work Phone: Start: 04-26-2024 End: 36-06-5486Gqoaloh encounter procedureUn[facility] Work Phone: Start: 04-24-2024 End: 16-51-6888tmmuolktetFBXBYHE MICKEYFacility:[facility] Centertart: 04-23-2024 End: 13-46-7715wfipnxsgrcXspcsldroBrecksville [facility] Work Phone: Start: 04-23-2024 End: 75-38-7312Tnqdemm encounter procedureUnc Health Chatham Physician [facility] Work Phone: Start: 04-02-2024 End: 39-66-4637hlqpxbtiyrRuhrwelBridget Hernandez APRN.ACCESSORIES REPAIRER Work Phone: Reproductive Endocrinology InfertilityComment on above:Genetic testingStart: 03-09-2024 End: 92-48-0872xnkusomsjeAaanpjgSue Hernandez APRN.ACCESSORIES REPAIRER Work Phone: Reproductive Endocrinology InfertilityComment on above:Reproductive mgmt, 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); Special screening examination for infectious diseases; Encounter for other genetic testing of female for procreative managementStart: 03-09-2024 End: 05-60-0179Jcdlvrecofay consultation with Washington Hernandez APRN.CNP Work Phone: Reproductive Endocrinology InfertilityStart: 02-29-2024 End: 85-38-6204tcjdaieygjBRLDXHP MICKEYFacility:[facility] Centertart: 02-28-2024 End: 56-24-7290fwiargiaudVTPVKF ATTARANFacility:[facility] Centertart: 02-28-2024 End: 31-43-4625Eczfgqv encounter Ana Rosa Guy MD Work Phone: reproductive Endocrinology InfertilityComment on above: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)Start: 02-27-2024 End: 71-35-8318lymsaoukvdSotpeanm Rohrbacher APRN Work Phone: [facility] Work Phone: Start: 02-27-2024 End: 51-78-3322Qeoqcss encounter procedureAmanda Ford APRN Work Phone: [facility] Work Phone: Start: 36-51-9850Ofl-patient / Non-visitUnc Health Ch[facility] Work Phone: Start: 02-20-2024 End: 09-65-0467Bwlazna encounter procedureCorey Juan DO Work Phone: noMS HealthcareStart: 02-20-2024 End: 63-67-6767Mbkkddiy preventive med est patient 18-39 yrsCorey Juan DO Work Phone: noms BCP OBComment on above:Well woman exam with routine gynecological examStart: 02-20-2024 End: 47-29-2893Hdshor flowsheetCorey Juan DO Work Phone: noms BCP OBStart: 02-20-2024 End: 08-47-7376Hnybpk flowsheetCorey Juan DO Work Phone: NOM[facility] BCP OBStart: 02-20-2024 End: 96-55-7503Kchhsqqol Result EncounterCorey Juan DO Work Phone: NOMS External Department UnsolicitedStart: 01-17-2024 End: 81-56-2912emnxyhsmxpWRUR Jennifer Rohrbacher Work Phone: [facility] Work Phone: Start: 01-17-2024 End: 65-15-1279Lzbxtzl encounter procedureMELY Ford Work Phone: [facility] Work Phone: Start: 82-00-7172Ygh-patient / Non-visitAPRTanja Ford Work Phone: [facility] Work Phone: Start: 12-20-2023 End: 59-27-7954tkgzhmjkddPNQF Jennifer Rohrbacher Work Phone: [facility] Work Phone: Start: 12-20-2023 End: 23-51-5975Ourmffz encounter procedureMELY Ford Work Phone: [facility] Work Phone: Start: 76-11-8772uopxksayvpKfmnv Bailey [facility]: 01-63-6175Qdb-patient / Non-visitAPRTanja Ford Work Phone: [facility] Work Phone: Start: 12-07-2023 End: 21-81-2462Lslgjzooo to same day surgery centerMELY Ford Work Phone: [facility] HealthStart: 12-07-2023 End: 77-85-4670eszksgibuwMTIJShima Ford Work Phone: [facility] Work Phone: Start: 12-01-2023 End: 19-64-9096vfbuftryrdCJJD Jennifer Rohrbacher Work Phone: [facility] Work Phone: Start: 12-01-2023 End: 15-28-9154Nvupksw encounter procedureMELY Ford Work Phone: [facility] Work Phone: Start: 11-28-2023 End: 46-61-2978vqabuvyixvPJLMShima Ford Work Phone: [facility] Work Phone: Start: 11-28-2023 End: 31-87-3773Zfwhgtg encounter procedureMELY Ford Work Phone: [facility]-Pre-Surgical Testing Work Phone: Start: 11-02-2023 End: 39-56-7451Aaczfdsci department patient visitAmanda Ford Facility:[facility]art: 11-01-2023 End: 55-62-7340jqcaihxsaoEZPBShima Ford Work Phone: [facility] Work Phone: Start: 11-01-2023 End: 41-95-6657Vfdgwbg encounter procedureMELY Ford Work Phone: [facility] Work Phone: Start: 10-26-2023 End: 43-55-6083qwwjkeeevlSPYD Jennifer Rohrbachenikkie Work Phone: [facility] Work Phone: Start: 10-26-2023 End: 07-32-4355Djdnyfn encounter procedureAPRTanja Patel Rosarioacher Work Phone: [facility] Work Phone: Start: 10-13-2023 End: 31-34-8307mulrzgkccfKbcwavgqk [facility] Work Phone: Start: 10-13-2023 End: 48-53-1343Ccpjrkw encounter procedureChristoph Physician [facility] Work Phone: Start: 42-13-1611Att-patient / Non-visitChad Physician Group-[place] [employer] Professional [employer] Work Phone: Start: 06-08-2023 End: 68-23-4845czgkjxavyaXqmgifgnpMetroHealth [facility] Work Phone: Start: 06-08-2023 End: 36-28-2619Fayoyly encounter procedureChad Physician Group-[facility] Work Phone: Start: 05-17-2023 End: 09-87-3929gbarbcxyuiHtnfcyrw Merylrbacher Other [employer] Other Start: 75-21-8573Hwdzxc outpatient visit 15 minutes Romeo [facility] OrthopedicsStart: 27-05-9558Menyocmbe encounterJennifer RohrbacherFPG [facility] ClinicStart: 05-17-2023 End: 52-33-2558Xybpjfx encounter procedureChad Physician Group-Start: 04-28-2023 End: 60-31-6171epabqwmfreNyoltwop Rohrbacher Other [employer] Other Start: 09-65-0916Abnsqipjg encounterJennifer RohrbacherFPG [facility] ClinicStart: 04-22-2023 End: 70-57-4924rmaspkocnfMlrnbngq Rohrbacher Other noBunkspeed Other Start: 61-29-9771Lbhbsezgu encounterJennifer RohrbacherFPG [facility] ClinicStart: 04-19-2023 End: 10-11-5934qcaizvwbbcSljcdpff Rohrbacher Other noBunkspeed Other Start: 21-52-7237Gmheaaljk encounterJennifer RohrbacherFPG [facility] RoadStart: 04-14-2023 End: 34-20-9173vbnrvrvyggCjjelzui Rohrbacher Other noBunkspe[employer] Other Start: 30-54-0282Xairnvgeh encounterJeaicha RohrbacherFPG [facility] ClinicStart: 03-17-2023 End: 88-44-3808hgbmsosxpcVsmkh Bailey Other noB[employer]pe[employer] Other Start: 06-70-4117Nhjlbkpgk encounterRomeo Bazzi OrthopedicsStart: 02-07-2023 End: 12-92-5919lgwsgandgaGptoufop Rohrbacher Other noBunkspe[employer] Other Start: 39-66-0704Hxigus outpatient visit 15 minutes [facility]r [facility] Health CenteruskyStart: 86-68-0537Nvnuctrlx encounter Amanda ShethrbacherFPG [facility] ClinicStart: 01-27-2023 End: 22-95-6535dwiacimmqnTnzlcibq Rohrbacher Other noBunkspe[employer] Other Start: 53-66-0876Gxspnpelv encounterJennifer RohrbacherFPG [facility] [place]Start: 01-19-2023 End: 25-52-2152lrfvfsqsxwFjhxjvfa Rohrbacher Other noBunkspe[employer] Other Start: 23-09-9777Oxppjpynq encounterJennifer RohrbacherFPG [facility] ClinicStart: 01-13-2023 End: 49-02-1953ofyfldlucnRlawzthx Rohrbacher Other noBunkspe[employer] Other Start: 33-72-3774Jzfqutrzo encounterJennifer RohrbacherFPG [facility] ClinicStart: 01-10-2023 End: 07-44-5727uzbahefuwaPfukrawr Rohrbacher Other [employer] Other Start: 27-76-5938Wowfqegws encounterJennifer RohrbacherFPG [facility] ClinicStart: 01-06-2023 End: 05-65-7894cnujueveqeFjonggox Rohrbacher Other noBunkspeed Other Start: 51-30-3714Cuovccfxv encounterJennifer RohrbacherFPG [facility] ClinicStart: 12-27-2022 End: 00-21-7273oanrorkuqjFbolwde Alireza Other noBunkspe[employer] Other Start: 03-71-4624Qyaqim outpatient visit 15 minutes Petr [facility] [place]Start: 11-10-2022 End: 81-74-1524jgpjpyeejlVqwtsgju Rohrbacher Other [employer]pe[employer] Other Start: 97-13-3039Mmanwjjsn encounterJennifer RohrbacherFPG [facility] [place]kyStart: 10-21-2022 End: 14-76-6017yiuugbwfzcMgmtwsuh Rohrbacher Other [employer] Other Start: 80-79-6613Zxvjqfgkb encounterJennifer John [facility] FloridaStart: 10-11-2022 End: 18-65-0603qbxrsptlyuDqthbyc Widmer Other noBunkspeed Other Start: 94-31-1918Ghimlf consultation new/estab patient 40 minMatthew BimerFPG [facility] [place]kyStart: 09-30-2022 End: 03-41-5498fbyusglcmzWocoilto Rohrbacher Other [employer] Other Start: 48-16-5837Vvrynp outpatient visit 15 minutes Amanda RosarioangelDanika Family [facility] Of FloridaStart: 08-25-2022 End: 89-24-4179sgwlzkjzkqRqtlancc Rohrbacher Other [employer] Other Start: 52-20-9313Lottsf outpatient visit 15 minutes Amanda ShethsarahangelDanika Family [facility] HospitaltonStart: 08-20-2022 End: 04-69-3971dndauansnzQzhxhtxr Rohrbacher Other [employer] Other Start: 85-78-4732Ptbxle outpatient visit 15 minutes Amanda RosarioangelDanika Family [facility] HospitaltonStart: 07-19-2022 End: 41-10-6602rwzkdipwyiSpbfqrdg Rohrbacher Other [employer] Other Start: 09-97-2933Ropdfwcso encounterJennifer MerylrbacherF Family [facility] HospitaltonStart: 07-08-2022 End: 47-11-7250vnwcskduteSgpebbwt Rohrbacher Other [employer] Other Start: 68-42-0203Flzkpoylw encounterAmanda LopezChrist HospitalStart: 06-23-2022 End: 81-04-8964jakeunjstyKLVW Jennifer Rohrbacher Work Phone: [facility] Work Phone: Start: 06-23-2022 End: 82-52-4114Qocsair encounter procedureAPRTanja Ford Work Phone: [facility] [place] Work Phone: Start: 06-17-2022 End: 77-59-7013wzhrxubcvrQtakqrwb Rohrbacher Other [place] [employer] Other Start: 95-01-7593Fxpaktrpu encounterAmanda FordNonortheast [facility] Prezirt: 06-16-2022 End: 08-49-6128ocxtafthcrKSSF Jennifer Rohrbacher Work Phone: [facility] Work Phone: Start: 06-16-2022 End: 91-34-4793Zjkdvng encounter procedureAPRTanja Amandahina Ford Work Phone: [facility] [place] Work Phone: Start: 06-10-2022 End: 48-09-2316Rmlnnhgspl and management of inpatientMD Mariam Appiah Work Phone: [facility]-4 [place] [employer] Work Phone: Start: 07-72-9379sdanuigjfvl encounterMD Mariam Appiah Work Phone: [facility] Work Phone: Start: 06-09-2022 End: 36-87-2245vipncakbzvOR Mariam Appiah Work Phone: [facility] Work Phone: Start: 06-09-2022 End: 05-66-1866Twvfjgu encounter procedureMD Mariam Appiah Work Phone: [facility] [place] Work Phone: Start: 04-26-2022 End: 02-55-3140gdczeqdqcnPjcpptav Rohrbacher Other [employer] Other Start: 27-66-3772Ztqvpjclr encounterArtemionnifer RosarioachenikkiePosiq Prezirt: 04-23-2022 End: 96-70-5997xhmlbwtzngLyzqblzs Rohrbacher Other [employer] Other Start: 80-34-7868Vkyccpsge encounterJennifer MerylrbacheLee's Summit HospitalBigDoorrt: 04-21-2022 End: 71-26-8846Pkwuibhr ReferredMD Mariam Appiah Work Phone: [facility] Main [place] Work Phone: Start: 04-21-2022 End: 78-24-8185lcpazuwcgnFJ Marima Appiah Work Phone: [facility] Work Phone: Start: 10-58-6518Kyidlj outpatient visit 15 minutes Amanda LopezChrist HospitalStart: 04-20-2022 End: 41-32-7760foyhnnepcvUpieuvlo Rohrbacher Other [employer] Other Start: 82-20-6876Dvrvurwwj encounterAmanda ShethrbacherFChrist HospitalStart: 04-13-2022 End: 21-10-3436lffbngctdlWbgfhpyn Rohrbacher Other [employer] Other Start: 25-90-1295Lrrqlknsx encounterJennifer MerylrbacherNonortheast [facility] Prezirt: 04-10-2022 End: 81-87-3684Ykbxfwoag department patient visitMD Mariam Appiah Work Phone: [facility] Work Phone: Start: 04-08-2022 End: 55-29-5622Lynvmfqrp department patient visitMD Mariam Appiah Work Phone: [facility] Work Phone: Start: 03-30-2022 End: 42-14-1855rvjwcdkicvFdawjkun Rohrbacher Other [employer] Other Start: 71-20-9516Ozkydzokt encounterJennifer MerylrbacherFRobert F. Kennedy Medical Center ClintonStart: 03-23-2022 End: 52-87-9976Dhmhhcu encounter procedureMD Mariam Appiah Work Phone: [facility] ClintonStart: 03-23-2022 End: 19-40-8054dsdtvlayjoLbsjxqwy Rohrbacher Other [employer] Other Start: 06-77-3738Vrswon outpatient visit [address] [facility] ClintonStart: 03-17-2022 End: 87-09-8354vtajjczcydYlcqqpyf Rohrbacher Other [employer] Other Start: 99-84-6606Dcghcdlva encounterJennifer MerylrbacherFPG Family [facility] HospitaltonStart: 02-08-2022 End: 76-05-7093camidvaduqLnuapjax Rohrbacher Other [employer] Other Start: 39-60-8113Fqqotk outpatient visit 25 minutes Amanda LopezChrist HospitalStart: 09-01-2021 End: 71-48-1570Fgjebhn encounter Afshan [facility] Start: 08-25-2021 End: 02-68-6008Jmymfsq encounter Afshan Thompson [facility] Start: 08-06-2021 End: 45-34-6582Ylrdgxn encounter Afshan Thompson [facility] Start: 07-24-2021 End: 69-14-7782Smquvbi encounter Afshan Thompson [facility] Start: 07-23-2021 End: 33-67-9001bcoocexnfjYnyvxofz Rohrbacher Other [employer] Other Start: 43-89-9522Ktvgnkrnb encounterAmanda FordNorway [employer] CoStart: 07-16-2021 End: 82-53-8613uehuamislmZritoddb Merylrbacher Other [employer] Other Start: 15-50-4661Gyntcb outpatient new 30 minutes Amanda LopezChrist HospitalStart: 03-30-2021 End: 71-94-7500Gtxqeznvw department patient visitMARIAM APPIAHRegency Hospital Cleveland Easttart: 05-06-2020 End: 90-93-3441thctscuozfSIENFHL R JOHNSPremier Health At[facility] Start: 05-06-2020 End: 37-34-9704Rndxtfwtcu hospital visit by Magui Olivera Work Phone: stvz 2C Ortho/Med SurgComment on above:Post-op pain (Primary Dx)Start: 05-02-2020 End: 51-75-8956Cvfwaxg encounter procedureLU [facility] HospitalStart: 05-02-2020 End: 33-99-9103Hzixbvnhxg hospital visit by physicianStcdoroteo Covid Screening ScheduleSTCZ Covid ScreeningComment on above:Pre-op testing (Primary Dx)Start: 04-22-2020 End: 69-02-8481ebeofkiwaaUZNOHGKBluffton Hospital Start: 04-22-2020 End: 82-96-4253ifqzhdwsahNBPDSBOBluffton Hospital Start: 04-22-2020 End: 29-29-5386Qxlbliflxc hospital visit by physicianSfatoumata C-Arm [address] [place] [address] RadiologyComment on above:ArrivedStart: 04-22-2020 End: 75-11-0849Mjvhkylzeg hospital visit by physicianSraisa Pat 2STVZ Pre-Admit Testing Procedures DateProcedureProcedure DetailPerforming ClinicianStart: 57-02-9504NV OB BPP W NON-STRESSCorey Juan DO Work Phone: Start: 08-05-4986OHV THYROID STIM HORMONECorey Juan DO Work Phone: Start: 01-89-3819Sxmgh dip stick/tablet rgnt non-auto w/o micrscpCorey Juan DO Work Phone: Start: 86-42-2836Mqpkn dip stick/tablet rgnt non-auto w/o micrscpAmy Kwaku OGDEN Work Phone: Start: 59-77-5143Ymdvp dip stick/tablet rgnt non-auto w/o micrscpMima Duenas NP Work Phone: Start: 48-87-3931XVN THYROID STIM HORMONECorey Juan DO Work Phone: Start: 82-87-4167XPJ CBC WITH AUTO DIFFAmy Kwaku OGDEN Work Phone: Start: 57-89-1147ANYTXUC 1 HOURAmy Kwaku OGDEN Work Phone: Start: 05-39-7302Nnwrw dip stick/tablet rgnt non-auto w/o micrscpAmy Kwaku OGDEN Work Phone: Start: 07-64-3775OPL UA (CLEAN/CATCH) MANAGER CULTURE/MICRO IF IND.Les Juan DO Work Phone: Start: 87-84-9797FEY URINE MICROSCOPIC ONLYCorey Juan DO Work Phone: Start: 62-43-4518Wlgak dip stick/tablet rgnt auto w/o microscopyRichard A Visci DO Work Phone: start: 43-46-1717EFRREYMTC VAGINITIS (HTRX)Les Juan DO Work Phone: Start: 47-64-2651QYA THYROID STIM HORMONECorey Juan DO Work Phone: Start: 32-75-7984Jgnda dip stick/tablet rgnt non-auto w/o micrscpCorey Juan DO Work Phone: Start: 09-99-6055Zlmki dip stick/tablet rgnt non-auto w/o micrscpCorey Juan DO Work Phone: Start: 59-94-4715BQKQGBXQ LAB TESTNot In System Ref ProvStart: 66-09-4029Hnijbqxz identification testAmanda Ford SOFTWARE DEVELOPER Work Phone: Start: 96-96-0835Vxvwiiuhdlege of growth of fungi Amanda Ford SOFTWARE DEVELOPER Work Phone: Start: 93-94-2500Xenlzuhwqzg vaginalis detection Amanda Ford SOFTWARE DEVELOPER Work Phone: Start: 23-37-1756Nazfu cultureJennifer Logan SOFTWARE DEVELOPER Work Phone: Start: 81-37-2111Qsjzfnrvom ultrasound of gravid uterusArtemionnedmundo Ford SOFTWARE DEVELOPER Work Phone: Start: 83-58-1080WVPLOEKX LAB TESTNot In System Ref ProvStart: 76-32-5936KVW TESTCorey Juan DO Work Phone: Start: 63-83-7456Zhpdfwtk rubellaNot In System Ref ProvStart: 06-04-6540Awakegbh Zak Lindquist MD Work Phone: Start: 80-02-0520Kbkhqbeavg glycosylated c6gKkyecsks Provider ExternalStart: 86-44-8007ZUB 1&2 AB/AG SCREEN (P24 AG)Not In System Ref ProvStart: 06-09-0735Ttde ia hepatitis b surface antigenNot In System Ref Prov Start: 25-87-8532GZHYHVIF TOTAL(UNKNOWN SYPHILIS STATUS)Not In System Ref Prov Start: 01-28-5285DTEA AND SCREENNot In System Ref ProvStart: 09-21-2024 ULTRASOUND OFFICENot In System Ref ProvStart: 69-93-6758Iijpv dip stick/tablet rgnt non-auto w/o micrscpCorey Juan DO Work Phone: Start: 21-80-3319Ni preg uterus after 1st trimest / gestationLiliana G David SOFTWARE DEVELOPER.ACCESSORIES REPAIRER Work Phone: Start: 67-07-8053Fj preg uterus after 1st trimest / gestationLiliana G David SOFTWARE DEVELOPER.ACCESSORIES REPAIRER Work Phone: Start: 40-91-8332Cy pelvic nonobstetric real-time image Nydia Guy MD Work Phone: start: 44-65-0450Ltgzxpfd screenLILIANA MICKEYComment on above:Order Comment: Specimen Type: BLOOD SPECIMEN Ordering Facility: [facility] Address: [address] [place], [place] [id number] By: #### TSPN #### ELO BLOOD BANK [facility] [id number] [place] [address] [place] AMERICAStart: 80-54-3750DMB,APTIMA HPV,AGE GDLN Les Monsivaiso DO Work Phone: Start: 62-21-1847Djnewovrsfx observation [Identifier] in Cervix by Rose Enriquez PhD Work Phone: Start: 27-48-5038KH Shoulder Scope RCR/Biceps Tendon (Right)SOFTWARE DEVELOPER Amanda Logan Work Phone: Start: 93-36-8325Nzjfauzd tomography of abdomen and pelvis with contrastMD Mariam Appiah Work Phone: Start: 18-84-9812Toxramwil for occult blood in fecesMD Mariam Appiah Work Phone: Start: 21-21-6686Kmqka cultureMD Mariam Appiah Work Phone: Start: 71-86-6514Tgpjd cultureMD Mariam Appiah Work Phone: Start: 36-93-9997Rumtx X-ray of right shoulderMD Mariam Appiah Work Phone: Start: 82-18-3296Frcan metabolic panel calcium total Rei Montez Work Phone: Start: 67-90-4637Sbzgf count complete auto&auto difrntl wbcMichael A Montez Work Phone: Start: 95-70-3161Dwfuj esophagusGregdriss R Olivera Work Phone: Start: 09-78-1915Iabfp metabolic panel calcium total Rashard R Olivera Work Phone: Start: 91-84-6322Roavq count complete automatedGregdriss R Olivera Work Phone: Start: 64-70-7821Oyykw metabolic panel calcium total Rashard R Olivera Work Phone: Start: 36-76-4450Qteop count complete automatedRashard Olivera Work Phone: Start: 05-06-2020 End: 92-15-3560AWRUBKUVCAM SLEEVE LAPAROSCOPIC ROBOTICRashard Olivera Work Phone: Start: 57-75-9079Qhkvw test visual color cmprsn methsGlisa Olivera Work Phone: Start: 43-55-1489Daptq iv surg pathology gross&microscopic examRashard Olivera Work Phone: Start: 10-56-1342Rjitmggcee exam chest 2 viewsRashard Olivera Work Phone: Start: 69-32-8401Ktmje of nicotineRashard Olivera Work Phone: Start: 91-12-8477Kuuoc metabolic panel calcium total Rashard Olivera Work Phone: Start: 02-27-2995Jsayq count complete Idania Olivera Work Phone: Start: 00-38-2868Raxvyhhwrcb timeRashard Olivera Work Phone: Start: 74-48-0596Nwpqemiqvckbls time partial plasma/whole bloodRashard Olivera Work Phone: Start: 77-61-4678Hbd routine ecg w/least 12 lds i&r onlyRashard Olivera Work Phone: Start: 93-18-4667AAB REPORTHpf ScanningCholecystectomy Samir Thompson Comment on above:2016 Plan of Treatment DateCare ActivityDetailAuthorStart: 35-62-6465YMQ Vaccine (1 - 1-dose 75+ series)RSV Vaccine (1 - 1-dose 75+ series)[facility] Centertart: 2045 Zoster Vaccines (1 of 2)Zoster Vaccines (1 of 2)[facility] HospitalStart: 52-81-1807VBjV,Tdap and Td Vaccines (2 - Td or Tdap)DTaP,Tdap and Td Vaccines (2 - Td or Tdap)[facility] SystemStart: 12-25-2032 DTaP/Tdap/Td Vaccines (2 - Td or Tdap)DTaP/Tdap/Td Vaccines (2 - Td or Tdap) [facility] HospitalStart: 48-40-1395Xlvzl microalbumin profile DTaP,Tdap,Td Vaccine (2 - Td or Tdap)[facility] Centertart: 55-77-0895Drxxbbdvs for malignant neoplasm of cervixUnBerger Hospital: 18-96-6189Fkmfe BMI ScreeningAdult BMI ScreeningProUniversity [facility]als [facility] SystemStart: 89-17-8553Obcfiay ScreeningTobacco ScreeningProCleveland Clinic Union Hospitaltart: 12-05-2025 End: 01-71-6271LO MFM with or without consultUS MFM with or without consult Imaging Routine Previous gastric bypass affecting , antepartum Hypothyroidism affecting in second trimester Bipolar disease during in second trimester ([facility]) Obesity affecting in second trimester, unspecified obesity type Encounter for supervision of resulting from assisted reproductive technology, antepartum Expected: 12/05/2025 (Approximate), Expires: 12/05/2025[facility] Work Phone: comment on above:Expected: 12/05/2025 (Approximate), Expires: 12/05/2025Start: 08-21-2025 End: 79-12-4655Oujzceu encounter procedureNOSAINT ELIZABETH FLORENCEStart: 03-06-2025 End: 61-14-5690Yydhavd encounter xjfulwukb03/19/2025 10:30 AM EST Routine GUDELIA HERNANDEZ [address] [place] [address] Jojo Ames PA [address] [place], [place] [id number] GUDELIA SHERMANGYNStart: 03-05-2025 End: 03-48-6485Yqvmfzz encounter bjaqxrugi66/18/2025 11:15 AM EST Appointment [facility] - Ultrasound [address] [place] [address] [phone] [facility] - UltrasoundStart: 02-20-2025 End: 29-77-7833Vhrzhrv encounter procedureNOMS BCP OBStart: 02-19-2025 End: 76-93-9946EP biophysical profile w non stress testUS biophysical profile w non stress test Imaging Routine TSH (thyroid-stimulating hormone deficiency) Expected: 02/19/2025 (Approximate), Expires: 08/19/2025[facility] Work Phone: comment on above:Expected: 02/19/2025 (Approximate), Expires: 08/19/2025Start: 02-19-2025 End: 42-58-2720Wkpvmwn encounter zpfildckq89/04/2025 1:00 PM EST Routine NOMMarixa [place] [facility] [address] [id number] Les Martinez DO [address] [place], [place] [id number] NOMS Ricco OBGYNStart: 02-07-2025 End: 60-27-7419EW MFM with or without consultUS MFM with or without consult Imaging Routine Hypothyroidism affecting in second trimester headache in second trimester Previous gastric bypass affecting , antepartum Bipolar disease during in second trimester ([facility]) Expected: 02/07/2025, Expires: 02/07/2026[facility] Work Phone: comment on above:Expected: 02/07/2025, Expires: 02/07/2026Start: 02-07-2025 End: 33-05-8415Kypkhij encounter zifpafvhb07/23/2025 9:45 AM EDT Appointment [facility] [place] [address] [facility] [place] [address] [phone] Medicine [place]Start: 02-06-2025 End: 80-69-4299Zhzanht encounter procedureNOMS [place] OBGYNComment on above: ArrivedStart: 02-03-2025 End: 12-32-8778AC MFM with or without consultUS MFM with or without consult Imaging Routine Previous gastric bypass affecting , antepartum Hypothyroidism affecting in second trimester Bipolar disease during in second trimester ([facility]) Obesity affecting in second trimester, unspecified obesity type Expected: 02/03/2025 (Approximate), Expires: 01/04/2026[facility] Work Phone: comment on above:Expected: 02/03/2025 (Approximate), Expires: 01/04/2026Start: 01-30-2025 End: 28-89-2445Iclspxskupxe / ancillary services qomjmrhzql52/15/2025 2:30 PM EDT Ancillary Procedure [facility] [address] [place] [address] [place] [id number] NOMS Ricco OBGYNStart: 01-16-2025 End: 76-97-9090RI for pregnancyUS OB follow up transabdominal approach Imaging Routine TSH (thyroid-stimulating hormone deficiency) Expected: 01/16/2025, Expires: 05/19/2025[facility] [employer] Work Phone: comment on above:Expected: 01/16/2025, Expires: 05/19/2025Start: 01-16-2025 End: 13-67-8665Mfhfpwm encounter procedureNOMS [place] OBGYNComment on above: ArrivedStart: 01-03-2025 End: 57-42-5697Bezxucc encounter hvtxaxjab55/18/2025 2:15 PM EDT Appointment [facility] [place] [address] [address] [place] [address] [phone] Medicine [place]Start: 12-19-2024 End: 03-15-6999FYA panel - Blood by Automated countCBC Lab Routine Diabetes mellitus screening Expected: 12/19/2024 (Approximate), Expires: 12/19/2025[facility] Work Phone: comment on above:Expected: 12/19/2024 (Approximate), Expires: 12/19/2025Start: 12-19-2024 End: 71-12-7441Ujbjtlsstrr of glucose 1 hour after glucose challenge for glucose tolerance testGlucose tolerance, 1 hour Lab Routine Diabetes mellitus screening Expected: 12/19/2024 (Approximate), Expires: 12/19/2025[facility] HealthcareComment on above:Expected: 12/19/2024 (Approximate), Expires: 12/19/2025Start: 12-19-2024 End: 76-91-4476Waqxhsb encounter procedureNOMS [place] OBGYNComment on above: ArrivedStart: 09-89-6867PXRRS-19 Vaccine ()COVID-19 Vaccine ()[facility] SystemStart: 71-32-5977Dkikzyknb vaccination [facility] Centertart: 12-05-2024 End: 03-07-2042Lhxdzbq encounter procedureCincinnati [facility] US ImagingStart: 12-04-2024 End: 27-27-9022Tzamjppvedpi / ancillary services kisahpjrnc46/19/2025 8:30 AM EDT Ancillary Procedure GUDELIA [place] [facility] [address] [place] [address] [place] [address] KKBT Ricco OBGYNStart: 03-83-5074Qjzlhauc admission [facility]ertart: 85-61-2026NxowzzpvnSouthern Ohio Medical Centertart: 18-36-6183Ebmlqcok identified in Urine by CultureUrine Culture [facility] Centertart: 11-30-2024 End: 30-93-4677Drfoe cultureSouthern Ohio Medical Centertart: 11-20-2024 End: 65-27-6751Xhbqt fetoprotein, maternalAlpha fetoprotein, maternal Lab Routine Need for maternal serum alpha-protein (MSAFP) screening ([facility]) Expected: 11/20/2024 (Approximate), Expires: 12/21/2024[facility] HealthcareComment on above:Expected: 11/20/2024 (Approximate), Expires: 12/21/2024Start: 11-20-2024 End: 40-35-2825YM for pregnancyUS OB 14+ weeks anatomy scan Imaging Routine Screening, , for anatomic survey ([facility]) Expected: 11/20/2024 (Approximate), Expires: 02/20/2025NOMS HealthcareComment on above:Expected: 11/20/2024 (Approximate), Expires: 02/20/2025Start: 11-20-2024 End: 01-62-7449Rvbcfkh encounter procedureNOMS BCP OBComment on above:Arrived Start: 10-22-2024 End: 52-43-4391Zqbkonc encounter etyeiztxd60/07/2025 11:20 AM EDT Routine [facility] [address] [place] [address] Les Martinez, DO [address] [place] [address] NOMS BCP OBStart: 78-39-4057Kzryzznf identified in Urine by CultureUrine [facility] Start: 13-12-5922Vgvfndc CultureGenital [facility] Start: 71-90-6056Suacp [facility] Dublintart: 10-18-2024 [facility]art: 09-20-2024 End: 38-49-3433HPO/RhABO/Rh Lab Routine Missed menses , unspecified gestational age Expected: 09/20/2024 (Approximate), Expires: 09/20/2025[facility] HealthcareComment on above:Expected: 09/20/2024 (Approximate), Expires: 09/20/2025Start: 09-20-2024 End: 61-12-8358Nspkr type and Indirect antibody screen panel - BloodType and screen Lab Routine Missed menses , unspecified gestational age Expected: 09/20/2024 (Approximate), Expires: 09/20/2025[facility] Work Phone: comment on above:Expected: 09/20/2024 (Approximate), Expires: 09/20/2025Start: 09-20-2024 End: 78-56-1214Zdzlh of abuse panel - Urine by Screen methodRapid drug screen, urine Lab Routine , unspecified gestational age Encounter for supervision of normal first in first trimester Expected: 09/20/2024 (Approximate), Expires: 09/20/2025NOMS HealthcareComment on above:Expected: 09/20/2024 (Approximate), Expires: 09/20/2025Start: 09-13-2024 End: 76-41-0095ciavabknib61/29/2025 2:30 PM EDT Initial [facility] [address] [place] [address] BYJC BCP OBStart: 09-13-2024 End: 00-70-4883Daixtqhhbrbi / ancillary services sdvecejsit52/29/2025 2:00 PM EDT Ancillary Procedure [facility] OB [address] [place] [address] UUNB [facility] OBStart: 09-03-2024 End: 97-36-4357Tsqkfgr evaluation of patient and reportReproductive Endocrinology InfertilityComment on above: scanob scan, non ivfStart: 08-22-2024 End: 368769-lfoednskaqyakp D3 [Mass/volume] in Serum or PlasmaVitamin D 25 hydroxy Lab Routine H/O gastric bypass Vitamin D deficiency Expected: 08/22/2024 (Approximate), Expires: 08/22/2025[facility] HealthcareComment on above: Expected: 08/22/2024 (Approximate), Expires: 08/22/2025Start: 08-22-2024 End: 67-33-4375Znoupofqc (Vitamin B12) [Mass/volume] in Serum or PlasmaVitamin B12 Lab Routine H/O gastric bypass Expected: 08/22/2024 (Approximate), Expires: 08/22/2025NOMS HealthcareComment on above:Expected: 08/22/2024 (Approximate), Expires: 08/22/2025Start: 08-22-2024 End: 31-72-1019Phqjmwwq (aka Vitamin B1)Thiamine (aka Vitamin B1) Lab Routine H/O gastric bypass Expected: 08/22/2024 (Approximate), Expires: 08/22/2025NOMS HealthcareComment on above:Expected: 08/22/2024 (Approximate), Expires: 08/22/2025Start: 08-22-2024 End: 96-98-5838Dimzqntnvir [Units/volume] in Serum or PlasmaTSH Lab Routine Abnormal thyroid function test Expected: 08/22/2024 (Approximate), Expires: 08/22/2025[facility] HealthcareComment on above:Expected: 08/22/2024 (Approximate), Expires: 08/22/2025Start: 08-22-2024 End: 51-48-4152Mltsqmifg (T4) free [Mass/volume] in Serum or PlasmaT4, free Lab Routine Abnormal thyroid function test Expected: 08/22/2024 (Approximate), Expires: 08/22/2025[facility] HealthcareComment on above:Expected: 08/22/2024 (Approximate), Expires: 08/22/2025Start: 08-22-2024 End: 82-12-1271Lkysotmpihzuuwtj (T3) Free [Mass/volume] in Serum or PlasmaT3, free Lab Routine Abnormal thyroid function test Expected: 08/22/2024 (Approximate), Expires: 08/22/2025[facility] Work Phone: Comment on above:Expected: 08/22/2024 (Approximate), Expires: 08/22/2025Start: 08-22-2024 End: 83-24-2820Pgasimp encounter /07/2025 10:00 AM EDT Office Visit [facility] [address] [place] [id number] Darleen Sinclair MD [address] [place] [address] ArrivedTRI-STATE [facility] ENDOCRINOLOGYComment on above:Arrived Start: 08-20-2024 End: 25-85-0122LQILOCXVK ULTRASOUND WHIOBSTETRIC ULTRASOUND WHI Anc Imaging Routine 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) Expected: 08/20/2024, Expires: 08/20/2025[facility] Work Phone: Comment on above:Expected: 08/20/2024, Expires: 08/20/2025Start: 08-20-2024 End: 75-61-6282grpdrmeris30/05/2025 8:30 AM EDT [facility] Reproductive Endocrinology Infertility [address] [place] [address] Melodie Hernandez APRN.ACCESSORIES REPAIRER [address] [place] [address] preg apptReproductive Endocrinology Infertility Comment on above:preg apptStart: 07-07-2024 End: 18-48-3046Vnecrtp encounter procedureSt. [facility] Comment on above:donor thawiui dStart: 05-09-2024 End: 91-89-0753mhmpbfppnp83/22/2025 8:00 AM EST [facility] Reproductive Endocrinology Infertility [address] [place] [address] Melodie Hernandez APRN.ACCESSORIES REPAIRER [address], [place] [address] donor sperm teachReproductive Endocrinology InfertilityComment on above:donor sperm teachStart: 65-50-4597Qykkujx referral [facility] Work Phone: Start: 03-11-2024 End: 979473-skoqpyjdzbqokz D3 [Mass/volume] in Serum or PlasmaVITAMIN D 25 HYDROXY Lab Routine Reproductive mgmt, 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 Expected: 03/11/2024, Expires: 06/10/2024[facility] ClinicComment on above:Expected: 03/11/2024, Expires: 06/10/2024Start: 03-11-2024 End: 58-15-4737HJUWJTN SCREEN, EXPANDEDCARRIER SCREEN, EXPANDED Lab Routine Encounter for other genetic testing of female for procreative management Expected: 03/11/2024, Expires: 06/10/2024[facility] ClinicComment on above: Expected: 03/11/2024, Expires: 06/10/2024Start: 03-11-2024 End: 35-33-2013Awujcfmdi trachomatis+Neisseria gonorrhoeae DNA [Presence] in Unspecified specimen by AC with probe detectionGONORRHEA/CHLAMYDIA NAAT Lab Routine Special screening examination for infectious diseases Expected: 03/11/2024, Expires: 06/10/2024[facility] ClinicComment on above:Expected: 03/11/2024, Expires: 06/10/2024Start: 03-11-2024 End: 01-43-1052Kwdsdolhzwrgqsv IgG Ab [Units/volume] in Serum or PlasmaCMV IGG ANTIBODY BL Lab Routine Special screening examination for infectious diseases Expected: 03/11/2024, Expires: 06/10/2024[facility] ClinicComment on above: Expected: 03/11/2024, Expires: 06/10/2024Start: 03-11-2024 End: 01-22-4155Afehwkfowqqyxmm IgM Ab [Units/volume] in Serum or PlasmaCMV IGM AB Lab Routine Special screening examination for infectious diseases Expected: 03/11/2024, Expires: 06/10/2024[facility] ClinicComment on above:Expected: 03/11/2024, Expires: 06/10/2024Start: 03-11-2024 End: 76-87-6907Iupyutsotr A1c in BloodHEMOGLOBIN A1C Lab Routine Reproductive mgmt, 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 Expected: 03/11/2024, Expires: 06/10/2024 [facility] CenterComment [facility]:Expected: 03/11/2024, Expires: 06/10/2024Start: 03-11-2024 End: 66-80-0608Kxqgmwajh B virus core Ab [Presence] in SerumHEPATITIS B CORE ANTIBODY TOTAL Lab Routine Special screening examination for infectious diseases Expected: 03/11/2024, Expires: 06/10/2024[facility] ClinicComment on above: Expected: 03/11/2024, Expires: 06/10/2024Start: 03-11-2024 End: 04-98-0690Fjxadxrvr B virus surface Ag [Presence] in SerumHEPATITIS B SURFACE ANTIGEN Lab Routine Special screening examination for infectious diseases Expected: 03/11/2024, Expires: 06/10/2024[facility] ClinicComment on above:Expected: 03/11/2024, Expires: 06/10/2024Start: 03-11-2024 End: 40-04-2820Btpaokqpm C virus Ab [Presence] in SerumHEPATITIS C ANTIBODY IA WITH CONFIRMATION Lab Routine Special screening examination for infectious d iseases Expected: 03/11/2024, Expires: 06/10/2024[facility] ClinicComment on above:Expected: 03/11/2024, Expires: 06/10/2024Start: 03-11-2024 End: 39-70-8629WTT 1+2 Ab [Presence] in Serum or Plasma by ImmunoassayHIV 1/2 COMBO WITH REFLEX TO DIFFERENTIATION Lab Routine Special screening examination for infectious diseases Expected: 03/11/2024, Expires: 06/10/2024[facility] ClinicComment on above:Expected: 03/11/2024, Expires: 06/10/2024Start: 03-11-2024 End: 21-88-3009ZANODIQ IGG ANTIBODYRUBELLA IGG ANTIBODY Lab Routine Special screening examination for infectious diseases Expected: 03/11/2024, Expires: 06/10/2024[facility] ClinicComment on above:Expected: 03/11/2024, Expires: 06/10/2024Start: 03-11-2024 End: 94-13-3971GMTYPKFU TREPONEMAL W/REFLEXSYPHILIS TREPONEMAL W/REFLEX Lab Routine Special screening examination for infectious diseases Expected: 03/11/2024, Expires: 06/10/2024[facility] ClinicComment on above:Expected: 03/11/2024, Expires: 06/10/2024Start: 03-11-2024 End: 86-06-9087NKCW + SCREEN PRENATALTYPE + SCREEN Blood Bank Routine Reproductive mgmt, 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 Expected: 03/11/2024, Expires: 06/10/2024[facility] ClinicComment on above:Expected: 03/11/2024, Expires: 06/10/2024Start: 03-11-2024 End: 03-81-5504IUQPLFVGH ZOSTER IGGVARICELLA ZOSTER IGG Lab Routine Special screening examination for infectious diseases Expected: 03/11/2024, Expires: 06/10/2024[facility] Work Phone: Comment on above:Expected: 03/11/2024, Expires: 06/10/2024Start: 03-09-2024 End: 52-87-4642cdeigarzfo12/22/2024 10:00 AM EST [facility] Reproductive Endocrinology Infertility [address] [place] [address] Melodie Hernandez APRN.ACCESSORIES REPAIRER [address] [place] [address] Donor sperm teachReproductive Endocrinology InfertilityComment on above:Donor sperm teachStart: 02-20-2024 End: 58-13-5380Xzjbvxh encounter uecrnptzq20/04/2024 2:50 PM EST Office Visit [facility] [address] [place] [id number] Les Martinez, DO [address] [place], [place] [id number] ArrivedNOMS BCP OBComment on above:ArrivedStart: 12-61-0055Sjtxt-19 Vaccine ( season)Covid-19 Vaccine ( season)[facility]: 16-13-0408Tbbxz-19 Vaccine ( season) Covid-19 Vaccine ( season)[facility]ert[facility]: 63-62-7194Gqsurmrpv vaccinationInfluenza Vaccine (#1)[facility] HealthcareStart: 12-07-2023 End: 86-60-3901YafmcouhvSouthern Ohio Medical Centertart: 19-97-4483ZlfmtpmsvMarion Hospital CenterStart: 30-83-4998HlqmwftlbMarion Hospital CenterStart: 87-28-0807LszqteedtMarion Hospital CenterStart: 28-84-2333AolveewmiSouthern Ohio Medical Centertart: 06-11-2022 End: 52-13-4048XmgunbypqMarion Hospital CenterStart: 26-07-6140Xksujdeo admissionSouthern Ohio Medical Centertart: 01-10-0946OohkbcixfMarion Hospital CenterStart: 98-16-5578ThdrmmhqsSouthern Ohio Medical Centertart: 32-66-7050WqvysolswSouthern Ohio Medical Centertart: 03-16-4381Iahyffkr identified in Urine by CultureUrine CultureSouthern Ohio Medical Centertart: 26-65-6528Uiowedwa identified in Urine by CultureUrine CultureSouthern Ohio Medical Centertart: 05-16-2020 End: 50-33-6537Sttgmx Visit05/16/2020 Office Visit Bariatrics Rashard Olivera, [address] [facility] [address] [place] [address] [facility] Invasive Bariatric SurgStart: 05-06-2020 End: 07-29-4271Gozqepij EncounterST ORComment on above:XI LAPAROSCOPIC ROBOTIC GASTRIC BYPASS BEN-EN-Y, LIVER BIOPSY, EGD- GI UNIT SCHEDULED.Start: 05-02-2020 End: 30-69-5610SACUTCOVID- Lab Routine Pre-op testing Expected: 05/02/2020, Expires: 05/01/2021[employer] on above:Expected: 05/02/2020, Expires: 05/01/2021tart: 05-02-2020 End: 16-60-4477Idigmj VisitProv[facility] Invasive Bariatric SurgStart: 59-54-4252MXO QnTSH testingFirelands Regional Medical Center [facility]: 56-13-1442Dtucifmws vaccinationFlu vaccine (#1)[facility]: 12-42-2929Upvmxaxnh for malignant neoplasm of cervixLouis Stokes [facility] Medical Centertart: 21-84-3734PJmV,Tdap and Td Vaccines (1 - Tdap)DTaP,Tdap and Td Vaccines (1 - Tdap)[facility]: 40-07-2158XYlU/Tdap/Td vaccine (1 - Tdap)DTaP/Tdap/Td vaccine (1 - Tdap)[facility]: 80-93-5344Rhwvqgpss B Vaccine (1 of 3 - 19+ 3-dose series) Hepatitis B Vaccine (1 of 3 - 19+ 3-dose series)[facility]: 38-60-6581Auyhyljwl B Vaccines (1 of 3 - 19+ 3-dose series)Hepatitis B Vaccines (1 of 3 - 19+ 3-dose series)[facility]: 2014 Urine microalbumin profileDTaP,Tdap,Td Vaccine (1 - Tdap)[facility] Centertart: 47-74-6823Zagjg BMI Follow Up PlanAdult BMI Follow Up PlanPending sale to [facility]: 77-32-9037Hllbq BMI ScreeningAdult BMI ScreeningPending sale to [facility]art: 04-22-6751Rvtvgqb ScreeningAnxiety ScreeningLouis Stokes [facility] Medical Centertart: 83-21-1032Haqjylexhv ScreeningDepression ScreeningLouis Stokes [facility] Medical Centertart: 33-39-4724Pyaqbqxib C screeningHepatitis C ScreeningLouis Stokes [facility] Medical Centertart: 78-28-5527GAF screeningHIV ScreeningLouis Stokes [facility] Medical Centertart: 98-47-9472QBN screeningHIV screenFirelands Regional Medical Center South Campus: 37-05-5142Mynnajjfl vaccination Varicella Vaccines (1 of 2 - 13+ 2-dose series)[facility] Start: 25-57-6837Gjpsweuvom ScreeningDepression ScreeningDayton Osteopathic Hospital Start: 56-83-7693Axaothm ScreeningTobacco ScreeningPending sale to [facility]: 98-29-3802UUV vaccine (1 - 2-dose series)HPV vaccine (1 - 2-dose series)[facility]: 06-63-2510JHO Vaccines (1 of 1 - Standard series)MMR Vaccines (1 of 1 - Standard series)[facility]: 48-31-3877Fjukqailk vaccine (1 of 2 - 2-dose childhood series)Varicella vaccine (1 of 2 - 2-dose childhood series)[facility]: 64-03-2062Dgrmrhqsc C screeningHepatitis C [facility]: 14-96-6857YKS screening HIV ScreeningUniversity Hospitals [facility]hu[facility]: 02-35-0908Fypfy panelLipid PanelUniversity Hospitals Ahuja Medical Center: 22-80-5586Oungoz Adult Physical Yearly Adult PhysicalUnSelect Medical [facility] Rehabilitation Hospital, BeachwoodaPTT in Platelet poor plasma by Coagulation assayFirelands Regional Medical CenterBacteria identified in Genital specimen by Aerobe cultureGalion Community HospitalBacteria identified in Urine by CultureUrine culture Microbiology Routine Missed menses Ordered: 09/20/2024[facility] HealthcareComment on above:Ordered: 09/20/2024alcitriol [Mass/volume] in Serum or PlasmaGalion Community HospitalCBC W Auto Differential panel - BloodCBC and differential Lab Routine Missed menses , unspecified gestational age Ordered: 09/20/2024[facility] HealthcareComment on above:Ordered: 09/20/2024HLAMYDIA TRACHOMATIS (GENITO/STI)CHLAMYDIA TRACHOMATIS (GENITO/STI) Lab Routine Exposure to STD Ordered: 11/20/2024[facility] HealthcareComment on above:Ordered: 11/20/2024ontinuous pulse oximetryPulse oximetry, continuous Respiratory Care Routine Every 4hr until discontinued starting 05/06/2020[facility] [place] [place]:Every 4hr until discontinued starting 05/06/2020T Abdomen and Pelvis WO and W contrast IV [facility] Community HospitalCytology Cervical or vaginal smear or scraping studyPap Smear Pathology and Cytology Routine Well woman exam with routine gynecological exam Ordered: 02/20/2024[facility] Healthcare Work Phone: comment on above:Ordered: 02/20/2024Electromyography [facility] Community HospitalF5 gene mutations found [Identifier] in Blood or Tissue by Molecular genetics method NominalGalion Community Hospital Factor VIII: C assayGalion Community HospitalGlucose measurement estimated from glycated hemoglobinGalion Community HospitalHemoglobin A1c/Hemoglobin.total in [facility] SystemHemoglobin A1c/Hemoglobin.total in BloodHemoglobin A1c Lab Routine Missed menses , unspecified gestational age Ordered: 09/20/2024[facility] HealthcareComment on above: Ordered: 09/20/2024Hepatitis B virus surface Ag [Presence] in Serum or Plasma by ImmunoassayHepatitis B surface antigen Lab Routine Missed menses , unspecified gestational age Ordered: 09/20/2024[facility] HealthcareComment on above: Ordered: 09/20/2024Hepatitis C virus Ab [Presence] in Serum or Plasma by ImmunoassayHepatitis C antibody Lab Routine Missed menses , unspecified gestational age Ordered: 09/20/2024[facility] HealthcareComment on above:Ordered: 09/20/2024HIV-1/HIV-2 antigen/antibody combination immunoassayHIV-1 and HIV-2 antibodies Lab Routine Missed menses , unspecified gestational age Ordered: 09/20/2024[facility] HealthcareComment on above:Ordered: 09/20/2024INR in Platelet poor plasma by Coagulation assayGalion Community Hospital Mullerian inhibiting substance [Mass/volume] in Serum or PlasmaGalion Community HospitalNebulizer therapyHHN Treatment Respiratory Care Routine TID until discontinued starting 05/06/2020[facility] [place]Comment [place]: TID until discontinued starting 05/06/2020Neisseria gonorrhoeae DNA [Presence] in Unspecified specimen by AC with probe detectionNeisseria gonorrhea DNA probe, direct Lab Routine Exposure to STD Ordered: 11/20/2024[facility] Healthcare Comment on above:Ordered: 11/20/2024Oxygen therapy [Minimum Data Set]Initiate Oxygen Therapy Protocol Respiratory Care Routine Daily until discontinued starting 05/06/2020[facility], [place]Comment on above:Daily until discontinued starting 05/06/2020atient EducationMarion Hospital Ctr Work Phone: Patient referralMarion Hospital Ctr Work Phone: Reagin Ab [Presence] in Serum by RPRRPR Lab Routine Missed menses , unspecified gestational age Ordered: 09/20/2024[facility] HealthcareComment on above:Ordered: 09/20/2024Rubella antibody, IgGRubella antibody, IgG Lab Routine Missed menses , unspecified gestational age Ordered: 09/20/2024[facility] HealthcareComment on above:Ordered: 09/20/2024Spirometry panelIncentive spirometry Respiratory Care Routine Every 2hr while awake until discontinued starting 05/06/2020[facility], [place]Comment on above:Every 2hr while awake until discontinued starting 05/06/2020URESWAB(R) ADVANCED VAGINITIS PLUS, TMASURESWAB(R) ADVANCED VAGINITIS PLUS, TMA Pathology and Cytology Routine Exposure to STD Ordered: 11/20/2024[facility] Healthcare Work Phone: comment on above:Ordered: 11/20/2024Surgical Pathology Surgical Pathology Lab Routine Release Upon Ordering for 1 Occurrences starting 05/06/2020[place], [place]:Release Upon Ordering for 1 Occurrences starting 05/06/2020 End: 36-17-9796Tkjmlfmyjky [Units/volume] in Serum or PlasmaTSH Lab Routine Thyroid disease every 4 weeks for 6 Occurrences starting 11/20/2024 until 11/20/2025[facility] HealthcareComment on above:every 4 weeks for 6 Occurrences starting 11/20/2024 until 11/20/2025Thyrotropin [Units/volume] in Serum or PlasmaTSH Lab Routine TSH (thyroid-stimulating hormone deficiency) Ordered: 01/16/2025[facility] HealthcareComment on above:Ordered: 01/16/2025von Willebrand factor (vWf) Ag [Units/volume] in Platelet poor plasmaGalion Community Hospitalvon Willebrand factor (vWf) multimers in Platelet poor plasma by [facility] Healthvon Willebrand factor (vWf) ristocetin cofactor actual/normal in Platelet poor plasma by Platelet ag [facility] Immunizations Immunization DateImmunizationNotesCare HyklgpwkBclfvaqr08-17-7369pedxhxs toxoid, reduced diphtheria toxoid, and acellular pertussis vaccine, Melvin Sinclair MD Work Phone: [facility]bon HospitalGcplzfvkca61-99-0886YEGWS-63 mRNA-1273 (Moderna) MELY Ford Work Phone: [facility]04-06-2021COVID-19 mRNA-1273 (Moderna)MELY Ford Work Phone: [facility] Payers DatePayer CategoryPayerPolicy [id number] 2023Medicaid [id number] [id number] 1.2.840.891903.1.13.239.2.7.3.180281.26863-91-6182Gmdblqk [id number] 2..840.1.287447.3.57[id number] 2..840.1.118113.3.57[id number] 2..840.1.907743.3.57[id number] 2..840.1.307359.3.57[id number] 2..840.1.394236.3.57[id number] 2..840.1.940432.3.579.2.213886-72-8806Bhoozta05421525 2..840.1.051160.3.579.2.51065-95-8694Pnvvxax81820613 2..840.1.220506.3.579.2.29522-86-3565Dqshhug29773500 2.16.840.1.175125.3.57[id number] 2.840.1.218030.3.57[id number] 2.16.840.1.358086.3.579.2.08242-43-7110Sjlnjfk67254175 2..840.1.764069.3.579.2.95271-60-9661Pmokafw15447833 2.840.1.225647.3.579.2.[id number] 2.840.1.784212.3.579.2.097164-26-4892Fqajzth638475622 2.0.1.120204.3.579.2.802137-88-1047Hdscfrz862490454 2.840.1.631930.3.579.2.869308-03-7207Yqhiwii576463003 2..1.808125.3.579.2.908400-00-6671Vvjncds45595168 2.0.1.718063.3.579.2.528596-39-0092Bgkxgek49321829 2..1.320740.3.57[id number] 2..1.170226.3.579.2.700736-82-5399Dydjwah70404638 2.0.1.454622.3.57[id number] 2..1.704764.3.579.2.121326-71-7767Eemqsyj83180185 2.840.1.460879.3.57[id number] 2.0.1.481722.3.579.2.846672-27-8814Myhmxuj11027265 2.840.1.207490.3.579.2.705459-66-1321Ixufbha80063184 2.0.1.193916.3.579.2.491121-39-0738Jtjwonm17583553 2.16.840.1.271894.3.579.2.576791-90-5889Hudlyoy3990805 2.16.840.1.286508.3.579.2.1259Prmishicotte [facility] Health Claims [id number] 2.1[id number] 2.16.840.1.483643.3.579.2.997Zklkkfc99326715 2.16.840.1.738979.3.579.2.310Cbzlkxn84354237 2.16.840.1.473364.3.579.2.531 Social History DateTypeDetailFacilityStart: 04-22-2020 End: 89-31-7208Abfcapv smoking status NHISNever smokerFirelands Regional Medical Center [facility]: 04-22-2020 End: 39-56-3359Slcpags use and exposureNever usedFirelands Regional Medical Center [facility]: 04-22-2020 End: 21-49-8069Okkfdle intakeCurrent non-drinker of alcohol (finding)[facility]: 80-22-6611Qmc Assigned At BirthNot on [place], [place]Exposure to SARS-CoV-2 (event)Not sureFirelands Regional Medical Center South Campus: 01-17-2023 Tobacco smoking statusNeverSt. Anthony'S Hospital CenterStart: 11-28-2023 End: 33-26-4941Iol Assigned At Critical Access HospitalFePalm [facility] [employer] Other Start: 87-17-7362Xhy Assigned At Critical Access HospitalFePomerene Hospitaltart: 21-33-1528Hgaotym smoking status NHISCurrent some day smokerSouthern Ohio Medical Centertart: 04-18-2023 End: 32-19-8128Bdsrtgh smoking status NHISSmoker (finding)[facility] Centertart: 11-28-2023 End: 90-02-7199Vipeimi smoking status NHISSmokes tobacco dailyNOMS Healthcare Start: 93-16-1310Dpbosko of tobacco useCigarette SmokerNOMS HealthcareStart: 11-28-2023 End: 73-00-7275Nrwivwdlxj smoked current (pack per day) - Reported0.5NOMS HealthcareStart: 11-28-2023 End: 39-52-3621Tyqbxtous beverage intakeEx-drinker (finding)[facility] Start: 11-13-3918Zbscaab Commentcaffeine: 1-2 cups per day teaNOMS Healthcare Start: 77-04-1554Tgeria identityIdentifies as female gender (finding)[facility] HealthcareStart: 11-21-2014 End: 44-55-5848SsrXgyihw (finding)[facility] HospitalTobacco smoking status NHISTobacco smoking consumption unknownDiller ClinicStart: 13-41-5373YyhqzeiljGtxvsipxjSouthern Ohio Medical Centertart: 10-18-2024 End: 75-72-4726Fgaypcp smoking status NHISEx-smoker (finding)[facility] HospitalNEGATED: Highlighted rowLake County Memorial Hospital [facility] West Medical Equipment Procedure CodeEquipment CodeEquipment Original TextEquipment IdentifierDates Functional endoscopic sinus surgery (FESS) with sinuplastyBUTTON NASAL SEPTAL 3CMFDAStart: 48-95-3162Ifqkmnukug endoscopic sinus surgery (FESS) with sinuplastyBUTTON NASAL SEPTAL 3CMFDAStart: 13-28-7991Ynjqopbrta endoscopic sinus surgery (FESS) with sinuplastyBUTTON NASAL SEPTAL 3CMFDAStart: 10-15-2019 Functional endoscopic sinus surgery (FESS) with sinuplastyBUTTON NASAL SEPTAL 3CMFDAStart: 35-04-7618Dwmezkmmdw endoscopic sinus surgery (FESS) with sinuplastyBUTTON NASAL SEPTAL 3CMFDAStart: 76-42-7554Bnqujwiokv endoscopic sinus surgery (FESS) with sinuplastyBUTTON NASAL SEPTAL 3CMFDAStart: 10-15-2019 Functional endoscopic sinus surgery (FESS) with sinuplastyBUTTON NASAL SEPTAL 3CMFDAStart: 05-82-4375Yrnrcdllfw endoscopic sinus surgery (FESS) with sinuplastyBUTTON NASAL SEPTAL 3CMFDAStart: 24-10-8548Mvvrhzjgut endoscopic sinus surgery (FESS) with sinuplastyBUTTON NASAL SEPTAL 3CMFDAStart: 10-15-2019 Functional endoscopic sinus surgery (FESS) with sinuplastyBUTTON NASAL SEPTAL 3CMFDAStart: 87-40-9781Vupnqltimg endoscopic sinus surgery (FESS) with sinuplastyBUTTON NASAL SEPTAL 3CMFDAStart: 55-81-3450Ualioxvair endoscopic sinus surgery (FESS) with sinuplastyBUTTON NASAL SEPTAL 3CMFDAStart: 10-15-2019 Functional endoscopic sinus surgery (FESS) with sinuplastyBUTTON NASAL SEPTAL 3CMFDAStart: 04-32-5911Tobdukgiho endoscopic sinus surgery (FESS) with sinuplastyBUTTON NASAL SEPTAL 3CMFDAStart: 37-40-4868Ztgeaurwzl endoscopic sinus surgery (FESS) with sinuplastyBUTTON NASAL SEPTAL 3CMFDAStart: 10-15-2019 Functional endoscopic sinus surgery (FESS) with sinuplastyBUTTON NASAL SEPTAL 3CMFDAStart: 74-59-2082Hsflcahyov endoscopic sinus surgery (FESS) with sinuplastyBUTTON NASAL SEPTAL 3CMFDAStart: 92-52-4884Snkqrijydp endoscopic sinus surgery (FESS) with sinuplastyBUTTON NASAL SEPTAL 3CMFDAStart: 10-15-2019 Functional endoscopic sinus surgery (FESS) with sinuplastyBUTTON NASAL SEPTAL 3CMFDAStart: 95-72-8581Gtipmuygvw endoscopic sinus surgery (FESS) with sinuplastyBUTTON NASAL SEPTAL 3CMFDAStart: 55-69-3832Engncckvng endoscopic sinus surgery (FESS) with sinuplastyBUTTON NASAL SEPTAL 3CMFDAStart: 10-15-2019 Functional endoscopic sinus surgery (FESS) with sinuplastyBUTTON NASAL SEPTAL 3CMFDAStart: 95-95-7480Tvfsyq/ligament bone anchor, non-bioabsorbable ()[id number] FDAStart: 10-23-3004Hmqsgc/ligament bone anchor, non-bioabsorbable()[id number] FDA Start: 88-11-3912Vqzsta/ligament bone anchor, non-bioabsorbable ()[id number] FDAStart: 08-30-8520Wnzznd/ligament bone anchor, non-bioabsorbable()[id number]([id number]([id number] FDAStart: 12-07-2023 Goals DatePatient GoalDesired Activity/StatePersonal health goal Functional Status PaslTdsnpheeziQydwjpModyftmm59-44-1343Apxhoahjzt statusPatient [facility] Work Phone: [phone]) 127-818802097697-79-3735Jeoonyukjs statusPatient at [facility] Work Phone: Mental Status LdheYnaxkbhqeqVqlabsMxxvnslv30-06-4065Hwkbvdfcn functionCognitive Status Patient at [facility] Work Phone: 1(242) 285-769902-239944-72-5340Zilorvuwk functionCognitive Status Patient at [facility] Work Phone: Clinical Notes 07-16-2021 to 02-19-2025 Note Date & IaafSvujVagerpgu97-04-0589 History of Present illness Narrative* Alana Valverde, [...] nursing note reviewed. 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 Vitals: Estimated body mass index is 40.03 kg/m as calculated from the following: Height as of 08/22/24: 5' 11 . Weight as of this encounter: 287 lb. BP: 128/76 No LMP recorded. Patient is . Assessment/Plan ICD-10-CM 1. Third trimester ([facility]) Z34.93 POCT urinalysis dipstick manually resulted 2. 31 weeks gestation of ([facility]) Z3A.31 3. TSH (thyroid-stimulating hormone deficiency) E03.8 [...] of: Les Martinez DO documented in this encounterFitzgibbon HospitalVnizdggmvb47-08-4884 History of Present illness Narrative* MELVI Engle [...] is . Assessment/Plan ICD-10-CM 1. Third trimester ([facility] Z34.93 2. 29 weeks gestation of ([facility]) Z3A.29 POCT urinalysis dipstick manually resulted Return [...] behalf of: MELVI Engle documented in this encounterFitzgibbon HospitalSrcljizbta37-21-7337 History of Present illness Narrative* Mima Duenas [...] nursing note reviewed. 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 Vitals: Estimated body mass index is 38.49 kg/m as calculated from the following: Height as of 08/22/24: 5' 11 . Weight as of this encounter: 276 lb. BP: 122/80 No LMP recorded. Patient is . ASSESSMENT & PLAN ICD-10-CM 1. 26 weeks gestation of ([facility]) Z3A.26 POCT urinalysis dipstick manually resulted 2. Second trimester ([facility]) Z34.92 3. TSH (thyroid-stimulating hormone deficiency) E03.8 [...] of: Mima Duenas NP documented in this encounterFitzgibbon HospitalDbhyppfxgy26-94-4197 Miscellaneous Notes* Telephone Encounter - Roslyn Griffin RN - 01/03/2025 3:44 PM EDT Called patient to schedule her follow up survey in 4-6 weeks per appointment tracker. No answer left message to call back to schedule the follow up ultrasound. [facility]Day[facility] Telephone encounter Note* Telephone Encounter - Roslyn Griffin RN - 01/03/2025 3:44 PM EDT Called patient to schedule her follow up survey in 4-6 weeks per appointment tracker. No answer left message to call back to schedule the follow up ultrasound. [facility]09[facility] History of Present illness Narrative* MELVI [...] PLAN ICD-10-CM 1. 22 weeks gestation of ([facility]) Z3A.22 POCT urinalysis dipstick manually resulted 2. Second trimester ([facility]) Z34.92 POCT urinalysis dipstick manually resulted [...] behalf of: MELVI Engle documented in this encounterFitzgibbon [id number] History of Present illness Narrative* Enrike Lindquist [...] follows with the behavioral health up in [place] History of migraines. Has been getting some [...] Pee's thyroiditis Hx of iron deficiency anemia Burns product of in vitro fertilization (IVF) Ovarian [...] mouth in the morning., Disp: , Rfl: on709-gmyi-yrorr acid ( 19) 29 mg iron- 1 [...] Calcium: recommend 1000-1200mg daily; if deficient, recommend 2526-9561 mg PO daily in divided doses Vitamin [...] 5. Bipolar disease during in second trimester ([facility]) I reviewed with the patient that [...] levels of her lamotrigine checked in the nbdx7uf and 3rd trimester in order to ensure [...] sometimes have neonates with adaptation syndrome. The railroad car repairman should be made awareat the time of [...] Enrike Lindquist MD, FACOG (she/hers) Maternal- Medicine [facility] [address] [place] [address] This document was created with [email or web address] technology. Though I make every effort to review the dictation as it is transcribed, on occasion the spoken word can be misinterpreted by the technology leading to inappropriate words, phrases, or sentences. This note is addressed to the requesting provider as a consultation for clinical guidance. Specificmedical abbreviations are occasionally used and those are generally approved by the [place]?Board of?Obstetrics and?Gynecology?as well as?Marilee s abbreviations. The above plan of care was based solely on the diagnoses for which a consultation was requested. ?More frequent testing may be indicated based on her other medical/obstetrical conditions. The management of other or medical conditions is beyond the scope of requested consultation and will c ontinue to be followed by the primary judicial reporter or primary care provider. Note to patient: [...] CF Have you been seen here at [facility] in a previous ? NA Recent ER visits or hospitalizations? See notes above Bring blood sugar log or meter with you today? (Please bring them with you for every visit at [facility]) NA Flu vaccine (Feb-June)? NA Any concerns that you would like me to mention to the provider today? Questions about glucose testing and her having gastric bypass surgery documented in this encounterDayton [facility]08[facility] History of Present illness Narrative* Alana [...] cancer Mother Julieta velarde Obesity Mother Julieta velrade Thyroid disease Mother Julieta velarde Diabetes Father [...] nursing note reviewed. 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 Vitals: Estimated body mass index [...] gonorrhea DNA probe, direct 3. Second trimester ([facility]) Z34.92 POCT urinalysis dipstick manually resulted 4. 18 weeks gestation of ([facility]) Z3A.18 5. Need for maternal serum alpha-protein (MSAFP) screening ([facility]) Z36.1 Alpha fetoprotein, maternal Alpha fetoprotein, maternal 6. Screening, , for anatomic survey ([facility]) Z36.89 US OB 14+ weeks anatomy scan [...] of: Les Martinez DO documented in this encounterFitzgibbon [id number] History of Present illness Narrative* Mima Duenas [...] nursing note reviewed. 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 Vitals: Estimated body mass index is 31.24 kg/m as calculated from the following: Height as of 08/22/24: 5' 11 . Weight as of this encounter: 224 lb. BP: 110/62 No LMP recorded. Patient is . ASSESSMENT & PLAN ICD-10-CM 1. 13 weeks gestation of ([facility]) Z3A.13 POCT urinalysis dipstick manually resulted 2. Second trimester ([facility]) Z34.92 POCT urinalysis dipstick manually resulted 3. Thyroid disease E07.9 4. H/O gastric sleeve Z90.3 5. H/O iron deficiency anemia Z86.2 6. resulting from in vitro fertilization in first trimester ([facility]) O09.811 Return OB: Patient presents today for [...] of: Les Martinez DO documented in this encounterFitzgibbon HospitalErraymhoej63-55-1250 Radiology Diagnostic study [facility] [place] [address] [place] [address] Ultrasound Report Signed Patient: Jaz Sanders MR#: [id number] : 1995 Acct:[id number] Age/Sex: 29 / F ADM Date: 5 Loc: ER Room: Type: [facility] ER Attending Dr: Ordering Provider: [...] Jr., D.ORenae 10/18/2024 2:21 PM Dictation Location: [place] [address] Tech: Natalie Raissa Transcribed By: MAITE 10/18/24 [...] screen, urine; Future Nurse Note: Patient declined [facility] at this time. Patient is an IVF from [facility]. OB Intake: Patient presents today for first OB visit. Patients history has been reviewed in great detail including any potential risks. Patient signed consent forms and patient desires testing in both trimesters. Patient currently has no complaints and has been advised to drink 6-8 glasses of water a day, eatno raw or undercooked meat, and stay away from [facility]. Patient has also been advised to [...] by: Marsha Asif MA documented in this encounterFitzgibbon HospitalGkxdglezek23-09-8600 NoteHNO ID: [id number] Author: MELODIE HERNANDEZ APRN.ACCESSORIES REPAIRER Service: ? Author Type: Nurse Practitioner Type: [...] 3. Cycle Day: Last menstrual period: 07/19/2024 [place] Protocol: UNIVERSAL PROTOCOL / SAFETY CHECKLIST Procedure [...] Sanders DATE: September 05, 2024 TIME: 10:45 [facility]05-19-2025 History of Present illness Narrative* Manisha [...] 5:39 PM documented in this encounterUniversity Hospitals Parma [facility]05-19-2025 NoteHNO ID: [id number] Author: MANISHA WEAVER APRN.CNP Service: ? Author [...] Plan Move on to OB Manisha Weaver APRN.ACCESSORIES REPAIRER September 03, 2024 5:39 [facility]05-15-2025 NoteHNO ID: [id number] Author: MIKEY TORRES MD Service: ? Author Type: Physician Type: Progress Notes Filed: 08/30/2024 16:36 Note Text: Viable ratliff IUP Size equal Date. Plan: patient to follow up with her ob for care. Stacy Banuelos [facility]05-15-2025 History of Present illness Narrative* Mikey [...] scheduled Melodie Hernandez APRN.JARROD documented in this encounterUniversity Hospitals Parma Medical Center05-13-2025 NoteHNO ID: [id number] Author: MELODIE HERNANDEZ APRN.CNP Service: ? Author [...] scan next week as scheduled Melodie Hernandez APRN.CNPMercy Health St. [facility]05-09-2025 Telephone encounter Note* Telephone Encounter [...] Call to patient needed: no [facility]05-09-2025 Miscellaneous Notes* Telephone Encounter - Meloide Hernandez APRN.CNP - 08/24/2024 5:35 PM EDT [...] schedule the patient for the following- Location: [facility] Provider: nurse Visit type: scan Reason for visit/appointment notes: scan Date: 08/28 Time (requested): 1110 If slot is full, please schedule the closest open slot. Call to patient needed: no * Telephone Encounter - Angella Mccarthy - 08/23/2024 10:37 AM EDT Name: Jaz Sanders called today. : 1995 (home) [phone] (cell) Reason for call: pt called today informing the nurse she has been experiencing pain of level 4 from1-10. Pt has been experiencing pain for 2 day. 5 weeks today. The patients preferred pharmacy has been captured for this encounter? Angella Morillo Inspector [employer] documented in this encounterUniversity Hospitals Parma [facility] Center05-09-2025 Telephone encounter Note * Telephone Encounter - Arminda Ward RN - 08/24/2024 1:58 PM EDT See 08/23/24 LIBBY Ward RN August 24, 2024 1:58 PM [facility]05-09-2025 Miscellaneous Notes* Telephone Encounter - Arminda Ward RN - 08/24/2024 1:58 PM EDT See 08/23/24 LIBBY Ward RN August 24, 2024 1:58 PM * Telephone Encounter - Manisha Ding - 08/24/2024 11:52 AM EDT Pt would like a call back documented in this encounterUniversity Hospitals Par[facility] Center05-09-2025 Telephone encounter Note * Telephone Encounter - Manisha Ding - 08/24/2024 11:52 AM EDT Pt would like a call back [facility]05-08-2025 Telephone encounter Note* Telephone Encounter - Angella Mccarthy - 08/23/2024 10:37 AM EDT Name: Jaz Sanders called today. : 1995 (home) [phone] (cell) Reason for call: pt called today informing the nurse she has been experiencing pain of level 4 from1-10. Pt has been experiencing pain for 2 day. 5 weeks today. The patients preferred pharmacy has been captured for this encounter? Angella Morillo [employer] [facility]05-08-2025 Telephone encounter Note* Telephone Encounter - Arminda Ward RN - 08/23/2024 8:53 AM EDT See 08/20 Distance health visit Arminda Ward RN August 23, 2024 8:53 AM [facility]05-08-2025 Miscellaneous Notes* Telephone Encounter - Arminda Ward RN - 08/23/2024 8:53 AM EDT See 08/20 Distance health visit Arminda Ward RN August 23, 2024 8:53 AM documented in this encounterUniversity Hospitals [facility] Center05-07-2025 History of Present illness Narrative* [...] levothyroxine 50 mcg daily, administered in the business technology teacher on an empty stomach. There have [...] 1 year (around 08/22/2025). documented in this encounterFitzgibbon HospitalOfpltbevpa19-55-6059 NoteHNO ID: [id number] Author: MELODIE HERNANDEZ APRN.ACCESSORIES REPAIRER Service: ? Author Type: Nurse Practitioner Type: [...] visit. Either the patient or their legal claims representative has been informed of the risks [...] providers Schedule with OB: 09/13 Melodie Hernandez APRN.ACCESSORIES REPAIRER August 20, 2024 8:33 AM Please schedule the patient for the following- Location: [place] Provider: nurse Visit type: Reason for visit/appointment notes: scan Date: 09/03 Time (requested): 1040 If slot is full, please schedule the closest open slot. Call to patient needed: no I spent a total of 30 minutes on the date of the service which included preparing to see the patient, catv-bc-vdei patient care, completing clinical documentation, obtaining and/or [...] be grammatical and typographical errors missed in proofreading.[facility]05-05-2025 History of Present illness Narrative* [...] visit. Either the patient or their legal claims representative has been informed of the risks [...] schedule the patient for the following- Location: [place] Provider: nurse Visit type: Reason for visit/appointment notes: scan Date: 09/03 Time (requested): 1040 If slot is full, please schedule the closest open slot. Call to patient needed: no I spent a total of 30 minutes on the date of the service which included preparing to see the patient, egcv-ge-gwao patient care, completing clinical documentation, obtaining and/or [...] in proofreading. documented in this encounterUniversity Hospitals Parma Medical Center05-01-2025 Telephone encounter Note * Telephone Encounter - Daniel Hanna APRN.CNP - 08/16/2024 5:15 PM EDT Called patient back to phone number listed in MyOtherDrive-no answer. Lm for patient to look out for Mychart message. Daniel Hanna APRN.CNP August 16, 2024 5:15 PM [facility]05-01-2025 Miscellaneous Notes* Telephone Encounter - Daniel Hanna APRN.CNP - 08/16/2024 5:15 PM EDT Called patient back to phone number listed in MyOtherDrive-no answer. Lm for patient to look out for Mychart message. Daniel Hanna APRN.CNP August 16, 2024 5:15 PM * Telephone Encounter - Angella Mccarthy - 08/16/2024 12:29 PM EDT Name: Jaz Sanders called today. : 1995 (home) [phone] (cell) Reason for call: pt called that she got positive test, she has been having having cramping since last night , it happens every hours for couple minutes. The patients preferred pharmacy has been captured for this encounter? yes Angella Morillo Inspector [employer]z documented in this encounterUniversity Hospitals Parma [facility] Center05-01-2025 Telephone encounter Note * Telephone Encounter - Angella Mccarthy - 08/16/2024 12:29 PM EDT Name: Jaz Sanders called today. : 1995 (home) [phone] (cell) Reason for call: pt called that she got positive test, she has been having having cramping since last night , it happens every hours for couple minutes. The patients preferred pharmacy has been captured for this encounter? yes Angella Morillo Inspector [employer]z [facility]04-30-2025 Telephone encounter Note* Telephone Encounter - Manisha Ding - 08/15/2024 2:10 PM EDT Pt is preg and wants to know if she can take benadryl due to her having hives [facility]04-30-2025 Miscellaneous Notes* Telephone Encounter - Manisha Ding - 08/15/2024 2:10 PM EDT Pt is preg and wants to know if she can take benadryl due to her having hives documented in this encounterUniversity Hospitals Parma Medical Center04-15-2025 NoteHNO ID: [id number] Author: DOMINGUEZ BARRY, ? Service: ? Author Type: Diamond Sizer And Sorter Type: Progress Notes Filed: 09/05/2024 22:45 Note Text: IUI Cryobio Donor # [id number] Pre: frozen washed specimen Post: 82 M/ml, 67% Insem # 27.[address] [facility]04-15-2025 NoteHNO ID: [id number] Author: DOMINGUEZ BARRY, ? Service: ? Author Type: Diamond Sizer And Sorter Type: Progress Notes Filed: 07/31/2024 15:26 Note Text: Thaw for IUI. Dominguez CruzProMedica Memorial Hospital04-15-2025 History of Present illness Narrative* Dominguez Barry - 07/31/2024 3:25 PM EDT Thaw for IUI. Dominguez Barry documented in this encounterUniversity Hospitals Parma [facility] Center04-15-2025 NoteHNO ID: [id number] Author: DOMINGUEZ BARRY, ? Service: ? Author Type: Diamond Sizer And Sorter Type: Progress Notes Filed: 09/05/2024 22:45 Note Text: IUI specimen released to provider Dominguez Barry July 31, 2024 3:24 [facility]04-15-2025 NoteHNO ID: [id number] Author: MUSTAPHA TELLO MA Service: ? Author Type: Catcher Helper Type: Progress Notes Filed: 07/31/2024 15:12 Note Text: Patient verified by full name and date of . Jaz Sanders is here today for an IUI. LMP: 07/19/2024 Natural cycle IUI Timed With: Ovulation Predictor Kit , Date: 07/30/2024 Livestock Trucker offered: Patient declines Mustapha Tello MA July 31, 2024 3:12 [facility]04-14-2025 Telephone encounter Note* Telephone Encounter - Melodie Hernandez APRN.CNP - 07/30/2024 5:58 PM EDT patient's OPK today was dark but not positive Plan: test again tomorrow. if darker, schedule IUI on Tuesday if a r collections rep than today, schedule IUI the same day Melodie Hernandez APRN.CNP July 30, 2024 6:00 PM [facility]04-14-2025 Miscellaneous Notes* Telephone Encounter - Melodie Hernandez APRN.CNP - 07/30/2024 5:58 PM EDT patient's OPK today was dark but not positive Plan: test again tomorrow. if darker, schedule IUI on Tuesday if a r collections rep than today, schedule IUI the same day Melodie Hernandez APRN.CNP July 30, 2024 6:00 PM * Telephone Encounter - Manisha Ding - 07/30/2024 3:15 PM EDT N- ivf Pt has questions regarding IUI documented in this encounterUniversity Hospitals Par[facility] Center04-14-2025 Telephone encounter Note * Telephone Encounter - Manisha Ding - 07/30/2024 3:15 PM EDT N- ivf Pt has questions regarding IUI [facility]03-23-2025 NoteHNO ID: [id number] Author: NICHELLE GONZALEZ, ? Service: ? Author Type: Diamond Sizer And Sorter Type: Progress Notes Filed: 07/19/2024 07:50 Note Text: IUI Cryobio #[id number] Washed frozen specimen Post: 31 m/ml, 77% Insem#: 10.[address] [facility]03-23-2025 History of Present illness Narrative* Nichelle Gonzalez E - 07/08/2024 8:07 AM EDT IUI Cryobio #[id number] Washed frozen specimen Post: 31 m/ml, 77% Insem#: 10.8 million * Nichelle Gonzalez - 07/07/2024 10:10 AM EDT IUI specimen released to provider Nichelle Gonzalez July 07, 2024 10:10 AM documented in this encounterUniversity Hospitals Parma Medical Center03-22-2025 NoteHNO ID: [id number] Author: NICHELLE GONZALEZ, ? Service: ? Author Type: Diamond Sizer And Sorter Type: Progress Notes Filed: 07/19/2024 07:50 Note Text: IUI specimen released to provider Nichelle Gonzalez July 07, 2024 10:10 [facility]03-22-2025 NoteHNO ID: [id number] Author: MIKEY TORRES MD Service: ? Author [...] Cycle Day: 14 Last menstrual period: 06/24/2024 [place] Protocol: UNIVERSAL PROTOCOL / SAFETY CHECKLIST Procedure [...] the primary surgeon/proceduralist with assistance. Stacy Banuelos, [facility]03-22-2025 Procedure note* Mikey Torres MD - [...] Cycle Day: 14 Last menstrual period: 06/24/2024 [place] Protocol: UNIVERSAL PROTOCOL / SAFETY CHECKLIST Procedure [...] with assistance. Stacy Banuelos MD [facility]03-22-2025 Procedure note* Mikey Torres MD [...] Cycle Day: 14 Last menstrual period: 06/24/2024 [place] Protocol: UNIVERSAL PROTOCOL / SAFETY CHECKLIST Procedure [...] Banuelos MD documented in this encounterUniversity Hospitals Parma Medical Center03-22-2025 NoteHNO ID: [id number] Author: NICHELLE GONZALEZ, ? Service: ? Author Type: Diamond Sizer And Sorter Type: Progress Notes Filed: 07/07/2024 09:41 Note Text: Thaw for IUI Nichelle GonzalezMer[facility]03-22-2025 History of Present illness Narrative* Nichelle Gonzalez - 07/07/2024 9:41 AM EDT Thaw for IUI Nichelle Gonzalez documented in this encounterUniversity Hospitals Parma [facility] Center03-21-2025 Telephone encounter Note * Telephone [...] July 06, 2024 3:26 PM [facility]03-21-2025 Miscellaneous Notes* Telephone Encounter - [...] Pleasecall patient. documented in this encounterUniversity Hospitals Parma [facility] Center03-21-2025 Telephone encounter Note * Telephone Encounter - Sivan Roberto - 07/06/2024 2:39 PM EDT Patient states she is calling back unsure about if she is okay to proceed with iui tomorrow. Pleasecall patient. [facility]03-21-2025 Telephone encounter Note* Telephone Encounter - Arminda Ward RN - 07/06/2024 11:17 AM EDT See other TE for 07/04 Arminda Ward RN July 06, 2024 11:17 AM [facility]03-21-2025 Miscellaneous Notes* Telephone Encounter - [...] removed first. documented in this encounterUniversity Hospitals Parma Medical Center03-20-2025 Telephone encounter Note * Telephone Encounter - Sivan Roberto - 07/05/2024 3:02 PM EDT On day 11 now, inquiring about if okay to proceed with iui with cervical polyp. Patient believes itwill be tomorrow or Tuesday for iui- inquiring if polyp needs to be removed first. [facility]03-19-2025 Telephone encounter Note* Telephone Encounter [...] July 04, 2024 7:30 PM [facility]03-19-2025 Miscellaneous Notes* Telephone Encounter - [...] 7:30 PM documented in this encounterUniversity Hospitals Parma Medical Center03-19-2025 NoteHNO ID: [id number] Author: IGNACIO UGY MD Service: ? Author Type: Physician Type: Progress Notes Filed: 07/04/2024 16:27 Note Text: 1CPro[facility]ica [facility]03-19-2025 History of Present illness Narrative* Ignacio Guy MD - 07/04/2024 4:27 PM EDT 1 documented in this encounterUniversity Hospitals Parma Medical Center02-22-2025 NoteHNO ID: [id number] Author: IGNACIO GUY MD Service: ? Author [...] Cycle Day: 13 Last menstrual period: 05/28/2024 [place] Protocol: UNIVERSAL PROTOCOL / SAFETY CHECKLIST Procedure [...] was discussed with the patient or authorized claims representative. The patient or authorized claims representative has agreed to proceed with the sensitive examination. 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 Vidhi Sheldon MD IUI IUI Date: [...] stopped. Will get pelivc scan here at [facility] if not with this IUI prior pt proceeding with another attmept at IUI. Ignacio Guy MD June 09, 2024 12:30 PM SIGNATURE: Vidhi Sheldon MD PATIENT NAME: Jaz Sanders DATE: June 09, 2024 TIME: 12:01 [facility]02-22-2025 Procedure note* Vidhi Sheldon MD - [...] Cycle Day: 13 Last menstrual period: 05/28/2024 [place] Protocol: UNIVERSAL PROTOCOL / SAFETY CHECKLIST Procedure [...] was discussed with the patient or authorized claims representative. The patient or authorized claims representative has agreed to proceed with the sensitive examination. 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 Vidhi Sheldon MD IUI IUI Date: [...] stopped. Will get pelivc scan here at [facility] if not with this IUI prior pt proceeding with another attmept at IUI. Ignacio Guy MD June 09, 2024 12:30 PM SIGNATURE: Vidhi Sheldon MD PATIENT NAME: Jaz Sanders DATE: June 09, 2024 TIME: 12:01 PM [facility] Work Phone: 1(899) 875-628002-22-2025 Procedure note* Vidhi Sheldon MD - 06/09/2024 [...] Cycle Day: 13 Last menstrual period: 05/28/2024 [place] Protocol: UNIVERSAL PROTOCOL / SAFETY CHECKLIST Procedure [...] was discussed with the patient or authorized claims representative. The patient or authorized claims representative has agreed to proceed with the sensitive examination. 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 Vidhi Sheldon MD IUI IUI Date: [...] stopped. Will get pelivc scan here at [facility] if not with this IUI prior pt proceeding with another attmept at IUI. Ignacio Guy MD June 09, 2024 12:30 PM SIGNATURE: Vidhi Sheldon MD PATIENT NAME: Jaz Sanders DATE: June 09, 2024 TIME: 12:01 PM documented in this encounterUniversity Hospitals Parma Medical Center02-22-2025 NoteHNO ID: [id number] Author: NICHELLE GONZALEZ, ? Service: ? Author Type: Diamond Sizer And Sorter Type: Progress Notes Filed: 06/09/2024 12:30 Note Text: IUI Cryobio #: [id number] Washed frozen sample Post: 42 m/ml, 74% Insem#: 15.[address] [facility]02-22-2025 History of Present illness Narrative* Nichelle Gonzalez - 06/09/2024 11:52 AM EST IUI Cryobio #: [id number] Washed frozen sample Post: 42 m/ml, 74% Insem#: 15.5 million * Nichelle Gonzalez - 06/09/2024 11:24 AM EST IUI specimen released to provider Nichelle Gonzalez June 09, 2024 11:24 AM documented in this encounterUniversity Hospitals Parma Medical Center02-22-2025 NoteHNO ID: [id number] Author: NICHELLE GONZALEZ, ? Service: ? Author Type: Diamond Sizer And Sorter Type: Progress Notes Filed: 06/09/2024 11:48 Note Text: Thaw for IUI Nichelle E PaulyMer[facility] Health St[facility]02-22-2025 History of Present illness Narrative* Nichelle Gonzalez - 06/09/2024 11:47 AM EST Thaw for IUI Nichelle Colt Larrykimberly documented in this encounterUniversity Hospitals Parma Medical Center02-22-2025 NoteHNO ID: [id number] Author: NICHELLE GONZALEZ, ? Service: ? Author Type: Diamond Sizer And Sorter Type: Progress Notes Filed: 06/09/2024 12:30 Note Text: IUI specimen released to provider Nichelle Gonzalez June 09, 2024 11:24 [facility]01-22-2025 Instructions* Patient Instructions* Melodie Hernandez APRN.ACCESSORIES REPAIRER - 05/09/2024 9:08 AM EST Images from [...] I sent your chart to the front desk supervisor today. Treatment plan: Natural cycle/IUI x 3 cycles. Please schedule a follow up visit with Dr. Brooks velasco are not after 3 cycles. Sperm Ordering Instructions We need 1 vial per cycle. You will likely need 3-6 vials to establish a . You are welcome to buy more than one and store with the [facility]. Mailing address: Attention: Nichelle Gonzalez [address] [place] [address], [place] [address] Storage at the [facility] is available. Fees are yearly and only start once you are not actively trying. Please ask the financial team ([phone]) for current cost information. Donor Insemination Scheduling Instructions Please call during the first business day of your menstrual cycle to let the front desk supervisor know you will be testing and doing [...] please call the office [place] [address] Available every day, including weekends and holidays (except Zulay and New Years.) Weekday IUI scheduling The day you get your LH surge, please call [phone] between 8:00am - 12:00pm to schedule your insemination for the next day. If you call after 12pm, we may not be able to schedule your appointment. IUI s are done by appointment only. You will make 2 appointments -an arrival time and a procedure time. [place]: [address] [place] [address], [address] [place] [address] Available every day, including weekends and holidays (except [place] and New Years.) Available for IUI using fresh and frozen samples. Check in location for sperm wash and IUI: [address] [facility]. The sperm wash takes 60-90 minutes. [...] to do another IUI: Call the front desk supervisor to make sure you are financially cleared. Ask to speak to an SKYLAR to confirm your treatment plan. Important phone number: [phone] documented in this encounterUniversity Hospitals Parma Medical Center01-22-2025 NoteHNO ID: [id number] Author: MELODIE HERNANDEZ APRN.CNP Service: ? Author Type: Nurse Practitioner Type: Progress Notes Filed: 05/09/2024 09:12 Note Text: REPRODUCTIVE ENDOCRINOLOGY AND INFERTILITY DONOR SPERM FOLLOW UP SERVICE DATE: 05/09/2024 SERVICE TIME: 8:12 AM NAME: aJz Sanders VIRTUAL VISIT PROGRESS NOTE This is [...] visit. Either the patient or their legal claims representative has been informed of the risks [...] negative donor is a carrier of: CFTR, [id number] Vial types available: IUI and ART Considerations [...] which included preparing to see the patient, llrj-mb-riim patient care, completing clinical documentation, obtaining and/or [...] medical team. Standard se (more content not included)...[facility] 05-09-2024 History of Present illness Narrative* Melodie Henrandez APRN.CNP - 05/09/2024 8:12 AM EST Images [...] visit. Either the patient or their legal claims representative has been informed of the risks [...] them. No double whammies. Sperm bank/donor #: [id number] Blood type: A negative CMV Status: negative Genetic carrier considerations: patient Myriad negative donor is a carrier of: CFTR, [id number] Vial types available: IUI and ART Considerations [...] which included preparing to see the patient, ylbg-tg-isnr patient care, completing clinical documentation, obtaining and/or [...] in proofreading. documented in this encounterUniversity Hospitals Parma Medical Center01-15-2025 History of Present illness Narrative* Nola Enriquez, PhD - 05/02/2024 2:00 PM EST Psychosocial Consultation for Third Republican Reproduction Virtual visit with audio and visual equipment POS 10 No SI, Falls, Tobacco use On May 02, 2024, I met virtually with Jaz and Sravan Sanders. They were referred by Melodie Hernandez at [facility] for their required psychosocial consultation regarding third green party reproduction. Relevant History Jaz, 29, and Demetrius, 26, have been together for 8.5 years and for 6.5 years. 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 Demetrius also works at that [employer]. The couple has been trying to conceive [...] Lynda's have already chosen a donor from [facility] in [place]. They chose this donor because heis CMV-, met their genetic screen (he does not have a history of bipolar disorder) and is phenotypically very similar to Demterius. He is also listed as open ID. [...] green party reproductive option. documented in this [facility] Work Phone: 1(466) 362-554511-24-2024 NoteHNO ID: [id number] Author: MELODIE HERNANDEZ APRN.ACCESSORIES REPAIRER Service: ? Author Type: Nurse Practitioner Type: [...] visit. Either the patient or their legal claims representative has been informed of the risks [...] Practice cycle Plan: Episode created.Reviewed checklist - becoacht GmbHhart message sent Practice cycle: recommended OPKs to test for ovulation and timing of IUIs, patient to call with +OPK, confirm ovulation with progesterone level Follow up once checklist is complete to discuss test results and next steps. Melodie Hernandez APRN.ACCESSORIES REPAIRER March 11, 2024 10:42 PM I spent a total of 55 minutes on the date of the service which included preparing to see the patient, bwnz-be-mwrj patient care, completing clinical documentation, obtaining and/or [...] be grammatical and typographical errors missed in proofreading.[facility]11-24-2024 History of Present illness Narrative* Melodie Hernandez APRN.ACCESSORIES REPAIRER - 03/11/2024 10:42 PM EST Images from [...] visit. Either the patient or their legal claims representative has been informed of the risks [...] Practice cycle Plan: Episode created.Reviewed checklist - [employer] message sent Practice cycle: recommended OPKs to [...] which included preparing to see the patient, myrc-gs-wwxt patient care, completing clinical documentation, obtaining and/or [...] in proofreading. documented in this encounterUniversity Hospitals Parma Medical Center11-22-2024 Instructions* Patient Instructions* Melodie Hernandez [...] question, please call the office. ~Silvia MELY Hernandez.[facility] [phone] Donor Sperm Checklist Donor Sperm Labs Mandatory [...] Sravan must be present Amanda Gillespie MD ([place]) - [phone] Rani Sims (Filomena Hernandez) - [phone] - virtual visit Nola Destin, - virtual [...] to date). Please get scheduled with your book reviewer or pcp if needed. Practice with Ovulation Predictor Kit (OPK) First day of full flow is cycle day #1. Start using on ovulation predictor kit on cycle day 10. Use your OPK once a day, in the morning with your second urine of the day. Send in a Notis.tvhart message when you get a positive OPK. [...] Once your checklist is complete, please call [phone] to get scheduled for a donor sperm follow up appointment. Sperm Bank Website [place] [facility] https://www.cryobank.com/ [facility] https://cryobio.com/ [employer] https://www.cryosinternational.com/ [place] [facility] https://Glycosan.[employer]age/ [place] [facility] https://www.Catapulter.[employer]/ [facility] [place] https://www.thespermbankOneFineMeal.org/ [place] [facility] https://www.PlanZap.[employer]age/ [employer] https://www.Qool.[employer]age/ If you would like to start browsing [...] is needed. Test: CPT Code: Blood type 94046 HIV 05110 CMV IgG 14322 CMV IgM 77381 Syphilis 32773 Hepatitis B Surface Ag 15600 Hepatitis B Core Ab, IgG and IgM 17368 Hepatitis C Ab 84065 Rubella 22021 Varicella 49125 Chlamydia 20476 Gonorrhea 61903 For the above tests, reference the diagnosis code of Z11.9 documented in this encounterUniversity Hospitals Parma Medical Center11-12-2024 Plan of care note* JAMEL [...] for three cycles. They will meet with FRENCH DRAWER to review the IUI checklist and sign consents. I spent a total of 45 minutes on the date of the service which included preparing to see the patient, pdds-fk-lsob patient care, completing clinical documentation, counseling and educating the patient/family/caregiver, and ordering medications, tests, or procedures. Ignacio Guy MD [facility]11-12-2024 Miscellaneous Notes* JAMEL Plan Note [...] for three cycles. They will meet with FRENCH DRAWER to review the IUI checklist and sign consents. I spent a total of 45 minutes on the date of the service which included preparing to see the patient, cwpj-qq-oyhc patient care, completing clinical documentation, counseling and educating the patient/family/caregiver, and ordering medications, tests, or procedures. Ignacio Guy MD documented in this encounterUniversity Hospitals Parma Medical Center11-12-2024 Instructions* Patient Instructions* Ignacio Guy MD - 02/28/2024 2:47 PM EST Dear Jaz Sanders Using donor sperm at the [facility] requires some set up (outlined below). Requirements to use donor sperm at the [facility]: Teaching with JAMEL SKYLAR - please call [phone] to schedule a donor sperm teach with [...] to help with the donor selection process. Zmanda Carrier Screen is the test ordered. Processing time takes 2-3 weeks. If your insurance doesn't cover it, the self-pay de oliveira is ~$250. Counselor You and your partner/spouse (if applicable) must see a counselor for a donor sperm assessment. Amanda Gillespie MD ([place]) - [phone] Rani Sims ([place] & [place]) - [phone] Doris Lama ([place]) - [phone] Consent form - must be signed by [...] Required Tests Test: CPT Code: Blood type 96834 HIV 94689 CMV IgG 70120 CMV IgM 13327 Syphilis 82144 Hepatitis B Surface Ag 43670 Hepatitis B Core Ab, IgG and IgM 89406 Hepatitis C Ab 53404 Rubella 39768 Varicella 80950 Chlamydia 12386 Gonorrhea 33245 For the above tests, reference the diagnosis code of Z31.49. PPDai Foresight Carrier Screen - PPDai will check coverage for you. For this [...] your test results into consideration. Sperm Bank [employer] [place] [facility] ([place]) [facility] [employer] ([facility] [place]) [place] [facility] *Do not order any sperm until your checklist is complete. We will review ordering instructions at your follow up visit. Next Steps: Call insurance to verify coverage for donor sperm panel. Schedule donor sperm teach with my nurse practitioner, Silvia Hernandez. Ignacio Guy MD [phone] documented in this encounterUniversity Hospitals Parma Medical Center11-12-2024 NoteHNO ID: [id number] Author: IGNACIO GUY MD Service: ? Author [...] OB History Obstetric History No data available MASTER CONTROL ENGINEER HISTORY: Patient's last menstrual period was 02/18/2024. 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 They will meet with FRENCH DRAWER to review the IUI checklist and sign consents. I spent a total of 45 minutes on the date of the service which included preparing to see the patient, nwpa-iy-ftjf patient care, completing clinical documentation, counseling and educating the patient/family/caregiver, and ordering medications, tests, or procedures. Ignacio Guy [facility]11-12-2024 History of Present illness Narrative* Ignacio [...] OB History Obstetric History No data available MASTER CONTROL ENGINEER HISTORY: Patient's last menstrual period was 02/18/2024. 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 They will meet with FRENCH DRAWER to review the IUI checklist and sign consents. I spent a total of 45 minutes on the date of the service which included preparing to see the patient, ffgp-yi-dked patient care, completing clinical documentation, counseling and educating the patient/family/caregiver, and ordering medications, tests, or procedures. Ignacio Guy MD documented in this encounterUniversity Hospitals Parma Medical Center11-11-2024 Evaluation note* Diagnosis Onset Date Resolution Status Admit Date Degenerative superior labral anterior-to -posterior (SLAP) tear of right matthias acuteNovember 2023 2:25pmLaxity of ligamentacuteNovember 2023 2:25pm Multidirectional instability of glenohumeral jointacuteNovember 2023 2:25pmOther instability, right shoulderacuteNovember 2023 2:25pmRight carpal tunnel syndromeacuteNovember 2023 2:25pmStatus post arthroscopy of right shoulderacuteNovember 2023 2:25pmStatus post surgerynoneactive February 27, 2024 2:25pmDegenerative superior labral chkxyamv-cr-ospunpolc (SLAP) tear of right shoacuteJanuary 2024 2:29pmLaxity of ligamentacute April 23, 2024 2:29pmMultidirectional instability of glenohumeral jointacute April 23, 2024 2:29pmOther instability, right shoulderacuteJanuary 2024 2:29pmRight carpal tunnel syndromeacuteJanuary 2024 2:29pmStatus post arthroscopy of right shoulderacuteJanuary 2024 2:29pm [facility] Work Phone: 1(716) 194-580811-11-2024 Evaluation note* Diagnosis Onset Date Resolution Status Admit Date Degenerative superior labral anterior-to -posterior (SLAP) tear of right matthias acuteNovember 2023 2:25pmLaxity of ligamentacuteNovember 2023 2:25pm Multidirectional instability of glenohumeral jointacuteNovember 2023 2:25pmOther instability, right shoulderacuteNovember 2023 2:25pmRight carpal tunnel syndromeacuteNovember 2023 2:25pmStatus post arthroscopy of right shoulderacuteNovember 2023 2:25pmStatus post surgerynoneactive February 27, 2024 2:25pmDegenerative superior labral xvxjkjwf-ms-xtagipeuw (SLAP) tear of right shoacuteJanuary 2024 2:29pmLaxity of ligamentacute April 23, 2024 2:29pmMultidirectional instability of glenohumeral jointacute April 23, 2024 2:29pmOther instability, right shoulderacuteJanuary 2024 2:29pmRight carpal tunnel syndromeacuteJanuary 2024 2:29pmStatus post arthroscopy of right shoulderacuteJanuary 2024 2:29pmAcute urticariaacute April 26, 2024 8:29amHypothyroidacuteJanuary 2024 8:29amOther chronic painacuteJanuary 2024 8:29am [facility] Work Phone: 1(988) 664-114711-04-2024 History of Present illness Narrative* Marsha Asif [...] nursing note reviewed. 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 Vitals: Estimated body mass index [...] of: TRENT Engle documented in this encounterFitzgibbon HospitalVgklcmemre47-52-2419 Note [id number]#1.00[facility]09-03-2024 Evaluation note* Diagnosis Onset Date Resolution Status Admit Date Degenerative superior labral anterior-to -posterior (SLAP) tear of right matthias acuteSeptember 2023 10:11amLaxity of ligamentacuteSeptember 2023 10:11amMultidirectional instability of glenohumeral jointacuteSeptember 2023 10:11amOther instability, right shoulderacuteSeptember 2023 10:11am Right carpal tunnel syndromeacuteSeptember 2023 10:11amStatus post arthroscopy of right shoulderacuteSeptember 2023 10:11amStatus post surgery noneactiveSeptember 2023 10:11amDegenerative superior labral ekqrleuf-aw-drbegfotw (SLAP) tear of right shoacuteOctober 2023 11:58am Laxity of ligamentacuteOctober 2023 11:58amMultidirectional instability of glenohumeral jointacuteOctober 2023 11:58amOther instability, right shoulderacuteOctober 2023 11:58amRight carpal tunnel syndromeacuteOctober 2023 11:58amStatus post arthroscopy of right shoulderacuteOctober 2023 11:58amStatus post surgerynoneactiveOctober 2023 11:58amDegenerative superior labral tqnafkit-hw-xgzuzhhnj (SLAP) tear of right shoacuteNovember 2023 2:25pmLaxity of ligamentacuteNovember 2023 2:25pm Multidirectional instability of glenohumeral jointacuteNovember 2023 2:25pmOther instability, right shoulderacuteNovember 2023 2:25pmRight carpal tunnel syndromeacuteNovember 2023 2:25pmStatus post arthroscopy of right shoulderacuteNovember 2023 2:25pmStatus post surgerynoneactive November 2023 2:25pm [facility] Work Phone: 1(143) 932-795107-17-2024 NoteEducation Materials Orthopedics Musculoskeletal Pain Musculoskeletal pain [...] mouth or applied to the skin. Take wskt-tqe-fatxwqe and prescription medicines only as told by [...] provider. Document Revised: 08/07/2020 Document Reviewed: 07/16/2020 [employer] Patient Education ? 2022 [employer].[facility] HospitalHjkeklpt00-43-6178 Evaluation note* Encounter Date Diagnosis Assessment Notes Treatment Notes Treatment Clinical Notes Apr, Intertrigo (ICD-10 - L30.4) [facility] Other 01-30-2024 Evaluation note* Encounter Date Diagnosis [...] pain of right shoulder (ICD-10 - M25.511) [facility] Other 01-05-2024 Evaluation note* Encounter Date Diagnosis Assessment Notes Treatment Notes Treatment Clinical Notes Apr, Other iron deficiency anemia (IC D-10 - D50.8) [facility] Other 12-28-2023 Evaluation note* Encounter Date Diagnosis Assessment Notes Treatment Notes Treatment Clinical Notes Mar, Vitamin D deficiency (ICD-10 - E 55.9) [facility] Other 10-23-2023 Evaluation note* Encounter Date Diagnosis [...] agreement for this and referral was given. [facility] Other 09-21-2023 Evaluation note* Encounter Date Diagnosis Assessment Notes Treatment Notes Treatment Clinical Notes Dec, Other iron deficiency anemia (IC D-10 - D50.8) Dec,Low folic acid (ICD-10 - E53.8) [facility] Other 09-11-2023 Evaluation note* Encounter Date Diagnosis [...] andcontinue to do the exercises for strength. [facility] Other 07-06-2023 Evaluation note* Encounter Date Diagnosis Assessment Notes Treatment Notes Treatment Clinical Notes Oct, Iron deficiency (ICD-10 - E61.1) [facility] Other 06-26-2023 Evaluation note* Encounter Date Diagnosis [...] symptoms and causing pain down the arm. [facility] Other 06-15-2023 Evaluation note* Encounter Date Diagnosis [...] verbalizes understanding and agrees c tx plan. [facility] Other 05-10-2023 Evaluation note* Encounter Date Diagnosis [...] follow-up if no improvement. She verbalizes understnading. [facility] Other 05-05-2023 Evaluation note* Encounter Date Diagnosis Assessment Notes Treatment Notes Treatment Clinical Notes August, Acquired hypothyroidism (ICD-10 - E03.9) Discussed with pt symptoms and lab resutls. Discussed treatment and evaluation. Referral placed to Dr. Sinclair. August,Hashimoto's disease (ICD-10 - E06.3) [place] [employer] Other 02-24-2023 Progress note Author Farhad [facility] June 11, 2022 1:16pmNote Date/TimeFebruary 2022 1:07pmFre[place] [address] Hospitalist Progress Note Signed Patient: Jaz Sanders MR#: [id number] : 1995 Acct:[id number] Age/Sex: 27 / F Adm Date: 3 Loc: 4N Room: 1Z8342-9 Type: ADM IN Attending Dr: Farhad Gallego [...] days. Patient has an appointment with her PARTS ADMINISTRATOR next week. Educated her to go to ED if she continues to have heavy bleeding with symptoms, she verbalized understanding. We will send patient home on iron supplements and docusate as needed for constipation Patient is being discharged today. Documented By: Farhad Gallego MD 06/11/22 1306 Signed By: <Electronically signed by Farhad Gallego MD> 06/11/22 1316 [facility] Work Phone: 1(666) 504-977002-23-2023 History and physical note Author Farhad Gallego [facility] June 10, 2022 6:28pmNote Date/TimeFebruary 2022 5:39pmFreeman[place] [address] Hospitalist H&P Signed Patient: Jaz Sanders MR#: [id number] : 1995 Acct:[id number] Age/Sex: 27 / F Adm Date: 3 Loc: Room: [address] [place] [address] Type: ADM INOo Attending Dr: Farhad Gallego MD Copies to: MD Amanda Correa, SOFTWARE DEVELOPER, ACCESSORIES REPAIRER~ HPI DATE OF EXAMINATION: 06/10/22 CHIEF COMPLAINT: [...] % (Auto) 41.3 % (.) 06/10/22 14:51 [place] % (Auto) 6.8 % (.) 06/10/22 14:51 Eos % (Auto) 5.0 % (.) 06/10/22 14:51 Baso % (Auto) 1.8 % (.) 06/10/22 14:51 Nucleat RBC Rel Count 0.1 /100 WBC (0-0.5) 06/10/22 14:51 Neut # (Auto) 2.4 x10E3/uL (1.8-7.7) 06/10/22 14:51 Lymph # (Auto) 2.2 x10E3/uL (1.00-4.8) 06/10/22 14:51 [place] # (Auto) 0.4 x10E3/uL (0.0-0.8) 06/10/22 14:51 [...] pH 5.5 (5.0-9.0) 06/10/22 15:40 Ur Specific [place] 1.010 (1.001-1.030) 06/10/22 15:40 Urine Protein Negative [...] code Documented By: Farhad Gallego MD 06/10/22 7521 Signed By: <Electronically signed by Farhad Gallego MD> 06/10/22 5014 [facility] Work Phone: 1(455) 792-471301-04-2023 Evaluation note* Encounter Date Diagnosis Assessment Notes [...] for bleeding. Keep appointment with Dr. Elder. [facility] Other 12-13-2022 Evaluation note* Encounter Date Diagnosis Assessment Notes Treatment Notes Treatment Clinical Notes Mar, Arthritis of shoulder (ICD-10 - M19.019) [facility] Other 12-06-2022 Evaluation note* Encounter Date Diagnosis [...] she had offered her treatement for this. [facility] Other 11-30-2022 Evaluation note* Encounter Date Diagnosis Assessment Notes Treatment Notes Treatment Clinical Notes Feb, Gastroesophageal ref lux disease without esophagitis (ICD-10 - K21.9) [facility] Other 10-24-2022 Evaluation note* Encounter Date Diagnosis [...] to trial the ointment. Follow-up as needed. [facility] Other 05-11-2022 NoteEchocardiology Procedure Exam Date/Time Accession # Ordering Echo Transthoracic 08/25/2021 15:36 EDT [id number] Jay DAVEY, Samir Rivera CPT code 58884 Reason for Exam (Echo Transthoracic Complete) Bradycardia;Other [...] Mariam Salazar MD Transcribed by: kerry Technologist: [facility]04-21-2022 Note Echocardiology Procedure Exam Date/Time Accession # Ordering ECG Stress Exercise 08/06/2021 10:22 EDT [id number] Jay DAVEY, Samir Rivera CPT code 04195 Reason for Exam (ECG Stress Exercise) bradycardia;Other [...] Mariam Salazar MD Transcribed by: marixa Technologist: [facility]03-31-2022 Evaluation note* Encounter Date Diagnosis Assessment Notes [...] school on two different occasions.Order faxed to [employer]. Jun,Gastroesophageal reflux disease without esophagitis (ICD-10 - [...] a [employer]. Jun,Former smoker (ICD-10 - Z87.891) [facility] [employer] Other Evaluation + Plan note Future Appointments Appointment Date:08/06/2021 09:30:00 AM Scheduled [facility]: [facility] Appoint[facility] Type:CV Stress (FT) Appointment Date:08/06/2021 11:00:00 AM Scheduled Provider: [facility] Appointment Type:CV Holter/Event (FT) Future Scheduled Tests Radiology* Echo Transthoracic Complete 07/24/21 * ECG Stress [facility]ments Appointment Date:08/11/2021 10:30:00 AM Scheduled Provider:Samir Thompson MD [facility] [place] Appointment Type:Cardiology Follow Up (FT) [facility] Future Appointments Appointment Date:09/01/2021 02:30:00 PM Scheduled Provider:Samir Thompson MD [facility] Appointment Type:[facility]iology Follow Up (FT) [facility] Future Appointments Appointment Date:2022 11:15:00 AM Scheduled Provider:Samir Thompson MD Location[facility] Appointment Type:Cardiology Follow Up (FT) [facility] noteNo InformationN[facility] [employer] Other Evaluation noteNo assessment information available [facility] Work Phone: Evaluation note* Diagnosis Onset Date Resolution Status Anemia acuteAnxiety and depressionacuteBipolar disorderacuteIron deficiency anemiaacute [facility] Work Phone: evaluation note* Diagnosis Onset Date Resolution Status Abdominal pain acuteChillsacuteConstipationacuteFeveracuteH/O gastric sleeveacuteVomitingacute [facility] Work Phone: Evaluation note* Diagnosis Onset Date Resolution Status [id number] acuteLaxity of ligamentacuteMultidirectional instability of glenohumeral joint acuteNumbness of right handacuteOther instability, right shoulderacute [facility] Work Phone: Evaluation note* Diagnosis Onset Date Resolution Status [id number] acuteLaxity of ligamentacuteMultidirectional instability of glenohumeral joint acuteNumbness of right handacuteOther instability, right shoulderacute LFF-[id number]-[id number] of ligamentacuteMultidirectional instability of glenohumeral jointacuteNumbness of right handacuteOther instability, right shoulderacuteRight carpal tunnel syndromeacute [facility] Work Phone: Evaluation note* Diagnosis Onset Date Resolution Status [id number] acuteLaxity of ligamentacuteMultidirectional instability of glenohumeral joint acuteNumbness of right handacuteOther instability, right shoulderacute IZG-[id number]-[id number] of ligamentacuteMultidirectional instability of glenohumeral jointacuteNumbness of right handacuteOther instability, right shoulderacuteRight carpal tunnel inqtwrtjrejitYTS-PXMK-[id number] of ligamentacuteMultidirectional instability of glenohumeral jointacuteOther instability, right shoulderacuteRight carpal tunnel syndromeacute [facility] Work Phone: Evaluation note* Diagnosis Onset Date Resolution Status [id number] acuteLaxity of ligamentacuteMultidirectional instability of glenohumeral joint acuteNumbness of right handacuteOther instability, right shoulderacute FNF-XYUQ-[id number] of ligamentacuteMultidirectional instability of glenohumeral jointacuteNumbness of right handacuteOther instability, right shoulderacuteRight carpal tunnel gpruetltpfpteBVJ-SLFC-[id number] of ligamentacuteMultidirectional instability of glenohumeral jointacuteOther instability, right shoulderacuteRight carpal tunnel syndromeacute HON-VZDI-[id number] of ligamentacuteMultidirectional instability of glenohumeral jointacuteOther instability, right shoulderacuteRight carpal tunnel syndromeacuteStatus post arthroscopy of right shoulderacute [facility] Work Phone: Evaluation note* Diagnosis Onset Date Resolution Status [id number] acuteLaxity of ligamentacuteMultidirectional instability of glenohumeral joint acuteNumbness of right handacuteOther instability, right shoulderacuteRight carpal tunnel uomiwurucjphmSIE-QHWC-[id number] of ligamentacute Multidirectional instability of glenohumeral jointacuteOther instability, right shoulderacuteRight carpal tunnel axogqihtstijkSIT-QXSB-[id number] of ligamentacuteMultidirectional instability of glenohumeral jointacuteOther instability, right shoulderacuteRight carpal tunnel syndromeacuteStatus post arthroscopy of right shoulderacuteStatus post surgerynoneactive MXK-[id number] of ligamentacuteMultidirectional instability of glenohumeral jointacuteOther instability, right shoulderacuteRight carpal tunnel syndromeacuteStatus post arthroscopy of right shoulderacuteStatus post surgery noneactive [facility] Work Phone: Evaluation note* Diagnosis Well woman exam with routine gynecological exam Routine gynecological examination [facility] 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 [facility] Diagnosis Reproductive mgmt, 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 Special screening examination for infectious diseases Screening examination for unspecified infectious disease Encounter for other genetic testing of female for procreative management [facility]* Diagnosis Bipolar 1 disorder (Multi)- Primary Infertility counseling documented in this encounter [facility] Work Phone: Evaluation note* Diagnosis Treatment plan provided- Primary [facility] Diagnosis Reproductive mgmt, 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 [facility]* Diagnosis Procreative management- Primary Unspecified procreative management [facility]* Diagnosis Female infertility- Primary Female infertility of unspecified origin [facility] Fertility testing- Primary Female infertility Female infertility of unspecified origin [facility] Diagnosis Encounter for fertility planning [Z31.89]- Primary Other specified procreative management [facility] Diagnosis Encounter for artificial insemination- Primary Artificial insemination documented in this [facility]* Diagnosis 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)- Primary [facility]* Diagnosis 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)- Primary [facility]* Diagnosis Abnormal thyroid function test- Primary Nonspecific abnormal results of thyroid function study 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 Vitamin D deficiency documented in this encounter [facility]* Diagnosis 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) [facility]* Diagnosis Early stage of (HCC) state, incidental documented in this [facility]* Diagnosis Amenorrhea Absence of menstruation 9 weeks gestation of Missed menses , unspecified gestational age Encounter for supervision of normal first in first trimester documented in this encounter [facility] HealthcareEvaluation note* Diagnosis 13 weeks gestation of ([facility]) Second trimester ([facility]) state, incidental Thyroid disease Unspecified disorder of thyroid H/O gastric sleeve H/O iron deficiency anemia resulting from in vitro fertilization in first trimester ([facility]) documented in this encounter [facility] HealthcareEvaluation note* Diagnosis Well woman exam with routine gynecological exam Routine gynecological examination Exposure to STD Second trimester ([facility]) state, incidental 18 weeks gestation of ([facility]) Need for maternal serum alpha-protein (MSAFP) screening ([facility]) Screening, , for anatomic survey ([facility]) Encounter for anatomic survey Thyroid disease Unspecified disorder of thyroid documented in this encounter [facility] HealthcareEvaluation note* Diagnosis Previous gastric bypass affecting , antepartum- Primary Hypothyroidism affecting in second trimester Bipolar disease during in second trimester ([facility]) Obesity affecting in second trimester, unspecified [...] in second trimester [facility] Diagnosis 22 weeks gestation of ([facility]-H[facility]) Second trimester ([facility]-HCC) state, incidental Thyroid disease Unspecified disorder of thyroid H/O gastric sleeve H/O iron deficiency anemia Diabetes mellitus screening Screening for diabetes mellitus documented in this encounter [facility] HealthcareEvaluation note* Diagnosis Previous gastric bypass affecting , antepartum- Primary Hypothyroidism affecting in second trimester Bipolar disease during in second trimester (CMS-HCC) Obesity affecting in second trimester, unspecified obesity type documented [facility] this [facility]* Diagnosis 26 weeks gestation of ([facility]-HCC) Second trimester ([facility]HS-HCC) state, incidental TSH (thyroid-stimulating hormone deficiency) Other specified acquired hypothyroidism documented in this encounter [facility] HealthcareEvaluation note* Diagnosis Third trimester (HHS-HCC) state, incidental 29 weeks gestation of ([facility]-HCC) documented in this encounter [facility] HealthcareEvaluation note* Diagnosis Hypothyroidism affecting in second trimester- Primary headache in second trimester Previous gastric bypass affecting , antepartum Bipolar disease during in second trimester (CMS-HCC) documented [facility] encounter [facility]* Diagnosis Third trimester (HHS-HCC) state, incidental 31 weeks gestation of ([facility]) TSH (thyroid-stimulating hormone deficiency) Other specified acquired hypothyroidism H/O gastric sleeve documented in this encounter [facility] general Narrative - Reported* Type Description Date Surgical History cholecystectomy 2014 Surgical History gastric sleeve 2020 [facility] Other History general Narrative - Reported* Type Description Date Medical History Hypothyroidism Medical HistoryMNGMedical HistoryenuresisMedical Historyextreme obesityMedical HistoryGERD with esophagitisMedical HistoryheadacheMedical HistoryGoiter, nontoxic, multinodularMedical HistoryVitamin D deficiencySurgical History becbfspxhemdhkq7981Dqcfbuci Xlyqlzyyvzbpntipkrsrtr6721Aqpceast Historygastric kaypra3608Rlexakgttfjuntp HistoryAnemia05/2022 [facility] Other Hospital course Narrative No data available for this section [facility] Discharge instructions No data available for this section [facility] Discharge instructions Additional Instructions POSTOPERATIVE INSTRUCTIONS FOR SHOULDER LABRAL REPAIR Romeo Santana DO Orthopedic Surgeon [facility] GENERAL INSTRUCTIONS: Use ice packs to the [...] Romeo Santana DO Orthopedic Surgeon [facility] Office: [address] [place], [place] [address] Office number: [phone] [facility] Work Phone: Hospital Discharge instructionsAmbulatory Orders* Referral to Allergy/Immunology Time Frame: 04/26/24, Location: None Selected [facility] Work Phone: Hospital Discharge instructions Additional Instructions We evaluated you for your vaginal bleeding in . Your ultrasound was normal, the baby has a good heart rate, measuring at 13 weeks and 1 day. Your cervix was closed. Follow-up closely with your PARTS ADMINISTRATOR. Return to the emergency department if you develop any worsening or concerning symptoms.[facility] Work Phone: InstructionsNot on filedocumented in this encounter [facility] SystemInstructionsNot on filedocumented in this encounter [facility] SystemInstructions* Attachments The following attachments cannot be sent through Care Everywhere. * Preeclampsia (Guyanese) documented in this encounterProPage Mage SystemInstructionsNot on file documented in this encounterProMedipa Strat[facility] SystemInstructionsNot on file documented in this encounterProJ.W. Ruby Memorial HospitalIMAGINATE - Technovating Reality SystemReason for referral (narrative)No reason for referral information availableWestern [facility] Hospital Work Phone: Reason for visit Narrative* Consult, Test, Treat (Routine) - ClosedSpecialtyDiagnoses / ProceduresReferred By ContactReferred To ContactREPRODUCTIVE ENDOCRINOLOGY & FERTILITY Diagnoses Encounter for procreative management, unspecified Encounter for other procreative management Procedures ARTIFIC INSEMINATION INTRAUTERIN THAWING CRYOPRESERVED SPERM/SEMEN EACH ALIQUOT Daniel Hanna APRN.ACCESSORIES REPAIRER [address] [place] [address] Phone: tel: fax: Reproductive Endocrinology Infertility [address] [place] [address] Phone: tel: Referral IDStatusReasonStart DateExpiration DateVisits RequestedVisits [id number] Financial Clearance Required - Self Pay Patient Cleared - True Self-Pay required payment collected Do Not Bill Insurance - SP patient [facility] for visit Narrative* Diagnostic Procedure Only (Routine) - AuthorizedSpecialtyDiagnoses / ProceduresReferred By ContactReferred To Contact[facility] Diagnoses Fertility testing Procedures PELVIC US WHI US PELVIC NONOBSTETRIC REAL-TIME IMAGE COMPLETE Ignacio Guy MD [address] [place] [address] Phone: tel: fax: [facility] [address] [place] [address] Referral IDStatusReasonStart DateExpiration DateVisits RequestedVisits [id number] Auto-Generated Referral Patient Cleared - True Self-Pay required payment collected Do Not Bill Insurance - SP patient / [facility] for visit Narrative* Consult, Test, Treat (Routine) - ClosedSpecialtyDiagnoses / ProceduresReferred By ContactReferred To Contact RE[facility] ENDOCRINOLOGY [facility]ERTILITY Diagnoses Encounter for procreative management, unspecified Encounter for other procreative management Procedures THAWING CRYOPRESERVED SPERM/SEMEN EACH ALIQUOT ARTIFIC INSEMINATION INTRAUTERIN Daniel Hanna APRN.ACCESSORIES REPAIRER [address] [place] [address] Phone: tel: fax: Reproductive Endocrinology Infertility [address] [place] [address] Phone: tel: Referral IDStatusReasonStart DateExpiration DateVisits RequestedVisits [id number] Patient Cleared - True Self-Pay required payment collected Do Not Bill Insurance - SP patient / [facility] for visit Narrative* Financial Clearance (Routine) - ClosedSpecialtyDiagnoses / ProceduresReferred By ContactReferred To Contact FINANCE Diagnoses Collect for IUI-D washed sample Procedures THAWING CRYOPRESERVED SPERM/SEMEN EACH ALIQUOT ARTIFIC INSEMINATION INTRAUTERIN FINANCIAL CLEARANCE PHONE CALL Self Financial Clearance Phone Screening [place] [address] Referral IDStatusReasonStart DateExpiration DateVisits RequestedVisits [id number] Financial Clearance Required - Self Pay Patient Cleared - True Self-Pay required payment collected Do Not Bill Insurance - SP patient / [facility] for visit Narrative* Diagnostic Procedure Only (Routine) - ClosedSpecialtyDiagnoses / ProceduresReferred By ContactReferred To Contact [facility] Diagnoses 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) Procedures OBSTETRIC ULTRASOUND WHI US PREG UTERUS AFTER 1ST TRIMEST GESTATION Melodie Hernandez APRN.ACCESSORIES REPAIRER [address] [place] [address] Phone: tel: fax: [place] [address] Referral IDStatusReasonStart DateExpiration DateVisits RequestedVisits [id number] Auto-Generated Referral / [facility] for visit Narrative* Diagnostic Procedure Only (Routine) - ClosedSpecialtyDiagnoses / ProceduresReferred By ContactReferred To Contact [facility] Diagnoses Early stage of (HCC) Procedures OBSTETRIC ULTRASOUND WHI US PREG UTERUS AFTER 1ST TRIMEST GESTATION Melodie Hernandez APRN.ACCESSORIES REPAIRER [address] [place] [address] Phone: tel: fax: [place] [address] Referral IDStatusReasonStart DateExpiration DateVisits RequestedVisits [id number] Auto-Generated Referral / [facility] Advance Directives TypeDate RecordedPatient RepresentativeExplanationACP-Advance [...] drive you home after your procedure. Your tow truck driver must be 18 years of [...] questions, call the Pre-Admission Testing Unit at [phone]. Day of Surgery/Procedure As a patient at [facility] you can expect quality medical and nursing care that is centered on your individual needs. Our goal is to make your surgical experience as comfortableas possible . Directions to the Surgery Center [facility] is located at [address] [place] [address]. Please pull into the Emergency parking lot and stop at the unemployment claims adjudicator dotson. We offer free unemployment claims adjudicator service for all our surgery patients, if you choose not to have unemployment claims adjudicator parking we have additional parking across the street.You will enter the facility following the [facility] sign. Please stop at the human resources receptionist desk where you will be checked in by the staff. If you have any questions please call [phone]. Transportation after your procedure. You will need a friend or family member to drive you home after your procedure. Your tow truck driver must be18 years of age [...] may shave your face or neck. ? [place] your teeth but do not swallow water. [...] or the day of surgery, please call [phone], or [phone] documented in this encounter* Instructions* Mukesh Montez, [...] 48 hours call the anesthesia department at [phone]. Will you need pain medication? The nerve [...] block please phone the Anesthesiology Department at [phone]. If the phone does not get answered please contact the hospital sinter machine operator at [phone] to page the automobile accessories salesperson anesthesiologist Discharge Instructions for Bariatric Surgery You had a Laparoscopic Sleeve Gastrectomy (62911) surgery to treat obesity. Recovery from this [...] scheduled appointment, please call the office at [phone]. Call Your Doctor If Any of the [...] AM EST CLINICAL PHARMACY NOTE: MEDS TO [facility] Select Patient?: No Total # of Prescriptions Filled: 3 The following medications were delivered to the patient: Oxycodone-acetaminophen 5/325 mg tab Cyclobenzaprine 10 mg tab Enoxaparin 60mg /0.6 ml syr Total # of Interventions Completed: 1 Time Spent (min): 60 Additional Documentation:called oil field caser about the high co-pay on the [...] SHOULDER DI SCUSS SURGERY Reason for Visit [id number] Laxity of ligament Multidirectional instability of glenohumeral joint Numbness of right hand Other instability, right shoulder Chief Complaint OP SP RT SHOULDER DI SCUSS SURGERY R20.0Reason for UgncdGRP-[id number] Laxity of ligament Multidirectional instability of glenohumeral joint Numbness of right hand Other instability, right shoulder Chief Complaint OP SP RT SHOULDER DI SCUSS SURGERY R20.0 EMG RESULTSReason for MarcsIPW-[id number] Laxity of ligament Multidirectional instability of glenohumeral joint Numbness of right hand Other instability, right shoulder [id number] Laxity of ligament Multidirectional instability of glenohumeral joint Numbness of right hand Other instability, right shoulder Right carpal tunnel syndrome Chief Complaint OP SP RT SHOULDER DI SCUSS SURGERY R20.0 EMG RESULTS Shoulder painReason for ZhhezPGZ-[id number] Laxity of ligament Multidirectional instability of glenohumeral joint Numbness of right hand Other instability, right shoulder [id number]-[id number] Laxity of ligament Multidirectional instability of glenohumeral joint Numbness of right hand Other instability, right shoulder Right carpal tunnel syndrome Chief Complaint OP SP RT SHOULDER DI SCUSS SURGERY R20.0 EMG RESULTS Shoulder pain H & P RIGHT SHOULDER ARTHROSCOPY 09-14-43Syjvtt for OxieqRNR-UQGZ-[id number] Laxity of ligament Multidirectional instability of glenohumeral joint Numbness of right hand Other instability, right shoulder [id number]-[id number]-[id number] Laxity of ligament Multidirectional instability of glenohumeral joint Numbness of right hand Other instability, right shoulder Right carpal tunnel syndrome RDV-[id number] Laxity of ligament Multidirectional instability of glenohumeral joint Other instability, right shoulder Right carpal tunnel syndrome Chief Complaint OP SP RT SHOULDER DI SCUSS SURGERY R20.0 EMG RESULTS Shoulder pain H & P RIGHT SHOULDER ARTHROSCOPY 12-07-23 Shoulder pain Shoulder painReason for FpezkHRB-ZYPG-[id number] Laxity of ligament Multidirectional instability of glenohumeral joint Numbness of right hand Other instability, right shoulder YWA-[id number] Laxity of ligament Multidirectional instability of glenohumeral joint Numbness of right hand Other instability, right shoulder Right carpal tunnel syndrome LRA-[id number]-[id number] Laxity of ligament Multidirectional instability of glenohumeral joint Other instability, right shoulder Right carpal tunnel syndrome Chief Complaint OP SP RT SHOULDER DI SCUSS SURGERY R20.0 EMG RESULTS Shoulder pain H & P RIGHT SHOULDER ARTHROSCOPY 12-07-23 Shoulder pain Shoulder pain 10-14 DAYS POST OPReason for DeaekDJJ-DOQH-[id number] Laxity of ligament Multidirectional instability of glenohumeral joint Numbness of right hand Other instability, right shoulder VKA-[id number] Laxity of ligament Multidirectional instability of glenohumeral joint Numbness of right hand Other instability, right shoulder Right carpal tunnel syndrome NTE-JZMK-[id number] Laxity of ligament Multidirectional instability of glenohumeral joint Other instability, right shoulder Right carpal tunnel syndrome ULZ-[id number] Laxity of ligament Multidirectional instability of glenohumeral joint Other instability, right shoulder Right carpal tunnel syndrome Status post arthroscopy of right shoulder Chief Complaint R20.0 EMG RESULTS Shoulder pain H & P RIGHT SHOULDER ARTHROSCOPY 12-07-23 Shoulder pain Shoulder pain 10-14 DAYS POST OP R20.0 4 WEEKSReason for WnzyuWOW-WILW-[id number] Laxity of ligament Multidirectional instability of glenohumeral joint Numbness of right hand Other instability, right shoulder Right carpal tunnel syndrome [id number] Laxity of ligament Multidirectional instability of glenohumeral joint Other instability, right shoulder Right carpal tunnel syndrome HSY-[id number] Laxity of ligament Multidirectional instability of glenohumeral joint Other instability, right shoulder Right carpal tunnel syndrome Status post arthroscopy of right shoulder Status post surgery [id number] Laxity of ligament Multidirectional instability of glenohumeral [...] for Visit Admit Date 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 December 20, 2023 10:11am Laxity of ligament December 20, 2023 10:11am Multidirectional instability of glenohum eral joint December 20, 2023 10:11am Other instability, right shoulder Septem 2023 10:11am Right carpal tunnel syndrome December 192023 10:11am Status post arthroscopy of right shoulde r December 20, 2023 10:11am Status post surgery December 20, 2023 10:11am Degenerative superior labral vthjoizz-lv-ppvtjcvnv (SLAP) tear of right matthias January 17, 2024 11:58am Laxity of ligament January 17, 2024 11 :58am Multidirectional instability of glenohum eral joint January 17, 2024 11:58am Other instability, right shoulder Octobe 2023 11:58am Right carpal tunnel syndrome January 11:58am Status post arthroscopy of right shoulde r January 17, 2024 11:58am Status post surgery January 17, 2024 11 :58am Degenerative superior labral sntlvclk-pm-uugyivbkl (SLAP) tear of right matthias February 27, [...] for Visit Admit Date Degenerative superior labral lnipmqzc-kr-ocrrcrttm (SLAP) tear of right matthias February 27, 2024 2:25pm Laxity of ligament February 27, 2024 2:25pm Multidirectional instability of glenohum eral joint February 27, 2024 2:25pm Other instability, right shoulder Novemb er 2023 2:25pm Right carpal tunnel syndrome February 262023 2:25pm Status post arthroscopy of right shoulde r February 27, 2024 2:25pm Status post surgery February 27, 2024 2:25pm Degenerative superior labral jcojkczd-iw-swesbyklk (SLAP) tear of right matthias April 23, [...] for Visit Admit Date Degenerative superior labral wtembngn-og-nzhkhgtpc (SLAP) tear of right matthias February 27, 2024 2:25pm Laxity of ligament February 27, 2024 2:25pm Multidirectional instability of glenohum eral joint February 27, 2024 2:25pm Other instability, right shoulder Novemb er 2023 2:25pm Right carpal tunnel syndrome February 262023 2:25pm Status post arthroscopy of right shoulde r February 27, 2024 2:25pm Status post surgery February 27, 2024 2:25pm Degenerative superior labral biwhrlal-wn-rnzjvcaxh (SLAP) tear of right matthias April 23, [...] initial encounter (S43.431A) Referral Organization [facility] Rosalindin e [place] Referring Provider First Name Petr Referring Provider Last Name Alireza Referring Provider Specialty Family Prac bret Referred Organization [facility] Referred Address [address] [place], [place],[address] Referred Provider Specialty Orthopaedic Surgery Referral Priority Routine Reason evaluate Diagnosis 1 Acquired hypothyroid ism (E03.9) 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,[place], [place],[address] Referred Provider Specialty Endocrinolog y Referral Priority Routine General Notes Fore, Chelsi M 023 11:26:34 AM >Received today and waiting for office notes to be locked before sending referral Additional Source Comments Reason for Visit (unrecogniz ed section and content) StatusReasonSpecialtyDiagnoses / ProceduresReferred By ContactReferred To Contact Diagnoses Morbid obesity (HCC) MORBID OBESITY, HYPOTHYROID Procedures MD LAP GASTRIC BYPASS/BEN-EN-Y XI LAPAROSCOPIC ROBOTIC GASTRIC BYPASS BEN-EN-Y, LIVER BIOPSY, EGD- GI UNIT SCHEDULED. Rashard Olivera, [address] [facility] [address] [place] [address] [facility] ReasonCommentsGynecologic ExamReasonCommentsInfertilitySpecialtyDiagnoses / ProceduresReferred By ContactReferred To ContactREPRODUCTIVE ENDOCRINOLOGY & FERTILITY Diagnoses Female infertility, unspecified Procedures VV OFFICE/OP CONSLTJ NEW/EST PT MOD MDM 40 MINUTES Pcp, Ana Rosa, SOFTWARE DEVELOPER [facility] [address] [address] [place] [address] Referral IDStatusReasonStart DateExpiration DateVisits RequestedVisits [id number] Financial Clearance Required - Self Pay Patient Cleared - True Self-Pay required payment collected Do Not Bill Insurance - SP patient Financial Clearance Not Required [id number] sperm teachSpecialtyDiagnoses / ProceduresReferred By ContactReferred To ContactREPRODUCTIVE ENDOCRINOLOGY & FERTILITY Diagnoses Infertility counseling Procedures OFFICE/OUTPATIENT ESTABLISHED MOD MDM 30 MIN Melodie Hernandez, MELY.[facility] [address] [facility] [address] [place] [phone] [facility] [address] [address] [place] [address] Referral IDStatusReasonStart DateExpiration DateVisits RequestedVisits [id number] Financial Clearance Required - Self Pay Patient Cleared - True Self-Pay required payment collected Do Not Bill Insurance - SP patient /[id number] / ProceduresReferred By ContactReferred To ContactREPRODUCTIVE ENDOCRINOLOGY & FERTILITY Diagnoses Encounter for fertility testing Procedures OFFICE/OUTPATIENT ESTABLISHED LOW MDM 20 MIN [facility] [place] [address] [place] [address] [facility] [address] [place] [address] Referral IDStatusReasonStart DateExpiration DateVisits RequestedVisits [id number] Financial Clearance Required - Self Pay Patient Cleared - True Self-Pay required payment collected Do Not Bill Insurance - SP patient [id number] PlanningReasonCommentsre iui this wknd/has cervical polyp questionReasonCommentsPatient [...] and content) DATE CREATED AUTHOR 05/08/2020 [facility] DATE CREATED AUTHOR 'S ORGANIZ ATION 03/31/2021 [facility] DATE CREATED AUTHOR AUTHOR'S ORGANIZ ATION 09/04/[address] [facility] DATE CREATED AUTHOR AUTHOR'S ORGANIZ ATION 04/19/2024 [facility] DATE CREATED AUTHOR AUTHOR'S ORGANIZ ATION 05/05/2024 [facility] DATE CREATED AUTHOR AUTHOR'S ORGANIZ ATION 09/12/[address] [facility] DATE CREATED AUTHOR AUTHOR'S ORGANIZ ATION 10/05/2024 [facility] DATE CREATED AUTHOR AUTHOR'S ORGANIZ ATION 12/07/2024 [facility] DATE CREATED AUTHOR AUTHOR'S ORGANIZ ATION 12/07/2024 [facility] DATE CREATED AUTHOR AUTHOR'S ORGANIZ ATION 02/08/2025 [facility] DATE CREATED AUTHOR AUTHOR'S ORGANIZ ATION 02/21/2025 [facility] EPIC Care Teams (unrecognized sec tion and content) Team Status: Inactive Member Role Status Dates Mariam Appiah MD Primary Care Provider Active Amanda Ford APRN [facility] DRAWER-CAttenrocky ProviderActive Team Status: Inactive Member Role Status Dates Amanda Ford APRN [facility]C Primary Care Provider Active Dariel Howell ProviderActive Team Status: Inactive Member Role Status Dates Amanda Ford APRN [facility]C Primary Care Provider Active Michelle Zhang ProviderActive Team Status: Active Member Role Status Dates Amanda Ford APRN [facility] Primary Care Provider Active Team Status: Inactive Member Role Status Dates Amanda Ford APRN [facility] Primary Care Provider, Attending Provider Active Team Status: Active Member Role Status Dates Amanda Ford APRN [facility] Primary Care Provider Active Dariel Howell ProviderActiveFarhad Gallego , MDAdmit Provider, Attending ProviderActive Team Status: Inactive Member Role Status Dates Amanda Ford APRN [facility] Primary Care Provider Active Dariel Howell ProviderActiveAnoDasilvaLashonda , MDAdmit Provider, Attending ProviderActive Team Status: Inactive Member Role Status Dates Amanda Ford APRN [facility]C Primary Care Provider Active Silva Greco ProviderActive Team Status: Inactive Member Role Status Dates Provider Conversion Attending Provider Active St art: May 17, 2023 End: May 17, 2023 Team Status: Inactive Member Role Status Dates Amanda Ford APRN [facility]C Primary Care Provider, Attending Provider Active Start: June 08, 2023 End: June 08, 2023 Team Status: Active Member Role Status Dates Amanda Ford APRN [facility]C Primary Care Provider, Attending Provider Active Start: September 15, 2023 Team Status: Inactive Member Role Status Dates Amanda Ford APRN [facility] Primary Care Provider Active Start: October 13, 2023 End: October 13, 2023Romeo Santana DOAttending ProviderActiveStart: October 13, 2023 End: October 13, 2023 Team Status: Inactive Member Role Status Dates Amanda Ford APRN [facility] Primary Care Provider Active Start: October 26, 2023 End: October 26, 2023Romeo Santana DOAttending ProviderActiveStart: October 26, 2023 End: October 26, 2023 Team Status: Inactive Member Role Status Dates Amanda Ford APRN [facility] Primary Care Provider Active Start: November 01, 2023 End: November 01, 2023Romeo Santana DOAttending ProviderActiveStart: November 01, 2023 End: November 01, 2023 Team Status: Inactive Member Role Status Dates Amanda Ford APRN [facility] Primary Care Provider Active Start: November 28, 2023 End: November 28, 2023Romeo Santana DOAttending ProviderActiveStart: November 28, 2023 End: November 28, 2023 Team Status: Inactive Member Role Status Dates Amanda Ford APRN [facility] Primary Care Provider Active Start: December 01, 2023 End: December 01, 2023Romeo Santana DOAttending ProviderActiveStart: December 01, 2023 End: December 01, 2023 Team Status: Inactive Member Role Status Dates Amanda Ford APRN [facility] Primary Care Provider Active Start: December 07, 2023 End: December 07, 2023Romeo Santana DOAttending ProviderActiveStart: December 07, 2023 End: December 07, 2023 Team Status: Active Member Role Status Dates Amanda Ford APRN [facility] Primary Care Provider Active Start: December 07, 2023 Romeo Santana DOAttending Provider, Other ProviderActiveStart: December 07, 2023 Team Status: Inactive Member Role Status Dates Amanda Ford APRN [facility]C Primary Care Provider Active Start: December 192023 End: December 20, 2023Romeo Santana DOAttending ProviderActiveStart: December 20, 2023 End: December 20, 2023 Team Status: Active Member Role Status Dates Amanda Ford APRN [facility]-C Primary Care Provider Active Start: December 182023 Romeo Santana , DOOther ProviderActiveStart: January 10, 2024 Daniel Hampton MDAttending ProviderActiveStart: January 10, 2024 Team Status: Inactive Member Role Status Dates Amanda Ford APRN [facility] Primary Care Provider Active Start: January 17, 2024 End: January 17, 2024Romeo Santana DOAttending ProviderActiveStart: January 17, 2024 End: January 17, 2024Team MemberRelationshipSpecialtyStart DateEnd Date Amanda Ford NP [address] [place] [address] [facility]01/17/23Team MemberRelationshipSpecialtyStart DateEnd Date Amanda Ford NP [address] [place] [address] [facility]01/17/23 Team Status: Inactive Member Role Status Dates Amanda Ford APRN [facility] Primary Care Provider Active Start: February 262023 End: February 27, 2024Romeo Santana DOAttending ProviderActiveStart: February 27, 2024 End: February 27, 2024Team MemberRelationshipSpecialtyStart DateEnd Date Amanda Ford NP PCP - [facility]01/17/23 Team Status: Active Member Role Status Dates Amanda Ford APRN [facility]-C Primary Care Provider Active Start: February Kenny Gallegos ProviderActiveStart: February 20, 2024 Team Status: Inactive Member Role Status Dates Amanda Ford APRN [facility]-C Primary Care Provider Active Start: April 23, 2024 End: April 23, 2024Kenny Gary ProviderActiveStart: April 23, 2024 End: April 23, 2024 Team Status: Inactive Member Role Status Dates Amanda Ford APRN [facility]-C Primary Care Provider, Attending Provider Active Start: April 26, 2024 End: April 26, 2024Team MemberRelationshipSpecialtyStart DateEnd Date Amanda Ford NP [address] [place] [address] [facility] Hchrilbh82/2/23Team MemberRelationshipSpecialtyStart DateEnd Date Amanda Ford NP [address] [place] [address] [facility] - [facility] Ndkaqpyk99/2/23Team MemberRelationshipSpecialtyStart DateEnd Date Amanda Ford NP [address] [place] [address] [facility] - [facility] Rpfkbrlw83/2/23Team MemberRelationshipSpecialtyStart DateEnd Date Amanda Ford NP [address] [place] [address] [facility] - [facility] Rbmnbveg82/2/23 Team Status: Inactive Member Role Status Dates Amanda Ford APRN [facility]C Primary Care Provider Active Start: October 18, 2024 End: October 18lexjerri Arriaza , DOEmergency ProviderActiveStart: October 18, 2024 End: October 18, 2024Team MemberRelationshipSpecialtyStart DateEnd Date Amanda Ford NP [address] [place] [address] PCP - GeneralFamily Xtbrexyj51/2/23Team MemberRelationshipSpecialtyStart DateEnd Date No Pcp, [place] [address] PCP - GeneralFamily Medicine05/20/20Team MemberRelationshipSpecialtyStart DateEnd Date No Pcp, [place] [address] PCP - GeneralFamily Medicine05/20/20Team MemberRelationshipSpecialtyStart DateEnd Date Amanda Ford NP [address] [place] [address] PCP - GeneralFamily Vdbuwnjc98/2/23Team MemberRelationshipSpecialtyStart DateEnd Date Amanda Ford NP [address] [place] [address] PCP - GeneralFamily Sakwwifl28/2/23Team MemberRelationshipSpecialtyStart DateEnd Date Amanda Ford NP [address] [place] [address] PCP - GeneralFamily Kbfubjot33/2/23 Team Status: Active Member Role Status Dates Amanda Ford APRN [facility] [employer] Primary Care Provider Active Start: November 17, 2024 Chris Dickerson , DOAttending ProviderActiveStart: November 17, 2024 Team Status: Active Member Role Status Dates Amanda Ford APRN [facility] [employer]-C Primary Care Provider Active Start: November 20, 2024 Les Juan , DOAttending ProviderActiveStart: November 20, 2024 Team Status: Active Member Role Status Dates Amanda Ford APRN [facility]-C Primary Care Provider Active Start: November 30, [...] Member Role Status Dates Amanda Ford APRN [facility] Primary Care Provider Active Start: December 02, 2024 End: December 03, 2024Eduardo Cruz , DOAttending ProviderActiveStart: December 02, 2024 End: December 03, 2024Team MemberRelationshipSpecialtyStart DateEnd Date No Pcp, [place] [address] PCP - GeneralFamily Medicine05/20/20Team MemberRelationshipSpecialtyStart DateEnd Date No Pcp, [place] [address] PCP - GeneralFamily Medicine05/20/20Team MemberRelationshipSpecialtyStart DateEnd Date Amanda Ford NP [address] [place] [address] PCP - GeneralFamily Supwbghy45/2/23Team MemberRelationshipSpecialtyStart DateEnd Date No Pcp, [place] [address] PCP - GeneralFamily Medicine05/20/20Team MemberRelationshipSpecialtyStart DateEnd Date No Pcp, [place] [address] PCP - GeneralFamily Medicine05/20/20Team MemberRelationshipSpecialtyStart DateEnd Date Amanda Ford NP [address] [place] [address] PCP - GeneralFamily Ufcnfqwp27/2/23Team MemberRelationshipSpecialtyStart DateEnd Date Amanda Ford NP [address] [place] [address] [place] [address] PCP - GeneralFamily Qorbqgtp31/2/23Team MemberRelationshipSpecialtyStart DateEnd Date Amanda Ford NP [address] [place] [place] [address] PCP - Generalmily Duuzswwt24/2/23Team MemberRelationshipSpecialtyStart DateEnd Date MerylsarahAmanda de la fuente NP [address] [place] [address] PCP - GeneralFamily Sluuhfdf98/2/23 Goals (unrecognized section and content) Type Treatment [...] any alcohol or drug abuse patient.[facility] CenterIn the event this information is protected by the Federal Confidentiality of Alcohol and Drug Abuse Patient Records regulations: The Federal rules restrict any use of the information to criminally investigate or prosecute any alcohol or drug abuse patient.[facility] CenterIn the event this information is protected by the Federal Confidentiality of Alcohol and Drug Abuse Patient Records regulations: The Federal rules restrict any use of the information to criminally investigate or prosecute any alcohol or drug abuse patient.[facility] CenterIn the event this information is protected by the Federal Confidentiality of Alcohol and Drug Abuse Patient Records regulations: The Federal rules restrict any use of the information to criminally investigate or prosecute any alcohol or drug abuse patient.[facility] CenterIn the event this information is protected by the Federal Confidentiality of Alcohol and Drug Abuse Patient Records regulations: The Federal rules restrict any use of the information to criminally investigate or prosecute any alcohol or drug abuse patient.[facility] CenterIn the event this information is protected by the Federal Confidentiality of Alcohol and Drug Abuse Patient Records regulations: The Federal rules restrict any use of the information to criminally investigate or prosecute any alcohol or drug abuse patient.[facility] CenterIn the event this information is protected by the Federal Confidentiality of Alcohol and Drug Abuse Patient Records regulations: The Federal rules restrict any use of the information to criminally investigate or prosecute any alcohol or drug abuse patient.[facility] CenterIn the event this information is protected by the Federal Confidentiality of Alcohol and Drug Abuse Patient Records regulations: The Federal rules restrict any use of the information to criminally investigate or prosecute any alcohol or drug abuse patient.[facility] CenterIn the event this information is protected by the Federal Confidentiality of Alcohol and Drug Abuse Patient Records regulations: The Federal rules restrict any use of the information to criminally investigate or prosecute any alcohol or drug abuse patient.[facility] CenterIn the event this information is protected by the Federal Confidentiality of Alcohol and Drug Abuse Patient Records regulations: The Federal rules restrict any use of the information to criminally investigate or prosecute any alcohol or drug abuse patient.[facility] CenterIn the event this information is protected by the Federal Confidentiality of Alcohol and Drug Abuse Patient Records regulations: The Federal rules restrict any use of the information to criminally investigate or prosecute any alcohol or drug abuse patient.[facility] CenterIn the event this information is protected by the Federal Confidentiality of Alcohol and Drug Abuse Patient Records regulations: The Federal rules restrict any use of the information to criminally investigate or prosecute any alcohol or drug abuse patient.[facility] CenterIn the event this information is protected by the Federal Confidentiality of Alcohol and Drug Abuse Patient Records regulations: The Federal rules restrict any use of the information to criminally investigate or prosecute any alcohol or drug abuse patient.[facility] CenterIn the event this information is protected by the Federal Confidentiality of Alcohol and Drug Abuse Patient Records regulations: The Federal rules restrict any use of the information to criminally investigate or prosecute any alcohol or drug abuse patient.[facility] CenterIn the event this information is protected by the Federal Confidentiality of Alcohol and Drug Abuse Patient Records regulations: The Federal rules restrict any use of the information to criminally investigate or prosecute any alcohol or drug abuse patient.[facility] CenterIn the event this information is protected by the Federal Confidentiality of Alcohol and Drug Abuse Patient Records regulations: The Federal rules restrict any use of the information to criminally investigate or prosecute any alcohol or drug abuse patient.[facility] CenterIn the event this information is protected by the Federal Confidentiality of Alcohol and Drug Abuse Patient Records regulations: The Federal rules restrict any use of the information to criminally investigate or prosecute any alcohol or drug abuse patient.[facility] CenterIn the event this information is protected by the Federal Confidentiality of Alcohol and Drug Abuse Patient Records regulations: The Federal rules restrict any use of the information to criminally investigate or prosecute any alcohol or drug abuse patient.[facility] CenterIn the event this information is protected by the Federal Confidentiality of Alcohol and Drug Abuse Patient Records regulations: The Federal rules restrict any use of the information to criminally investigate or prosecute any alcohol or drug abuse patient.[facility] CenterIn the event this information is protected by the Federal Confidentiality of Alcohol and Drug Abuse Patient Records regulations: The Federal rules restrict any use of the information to criminally investigate or prosecute any alcohol or drug abuse patient.[facility] CenterIn the event this information is protected by the Federal Confidentiality of Alcohol and Drug Abuse Patient Records regulations: The Federal rules restrict any use of the information to criminally investigate or prosecute any alcohol or drug abuse patient.[facility] CenterIn the event this information is protected by the Federal Confidentiality of Alcohol and Drug Abuse Patient Records regulations: The Federal rules restrict any use of the information to criminally investigate or prosecute any alcohol or drug abuse patient.[facility] CenterIn the event this information is protected by the Federal Confidentiality of Alcohol and Drug Abuse Patient Records regulations: The Federal rules restrict any use of the information to criminally investigate or prosecute any alcohol or drug abuse patient.[facility] CenterIn the event this information is protected by the Federal Confidentiality of Alcohol and Drug Abuse Patient Records regulations: The Federal rules restrict any use of the information to criminally investigate or prosecute any alcohol or drug abuse patient.[facility] CenterIn the event this information is protected by the Federal Confidentiality of Alcohol and Drug Abuse Patient Records regulations: The Federal rules restrict any use of the information to criminally investigate or prosecute any alcohol or drug abuse patient.[facility] CenterIn the event this information is protected by the Federal Confidentiality of Alcohol and Drug Abuse Patient Records regulations: The Federal rules restrict any use of the information to criminally investigate or prosecute any alcohol or drug abuse patient.[facility] CenterIn the event this information is protected by the Federal Confidentiality of Alcohol and Drug Abuse Patient Records regulations: The Federal rules restrict any use of the information to criminally investigate or prosecute any alcohol or drug abuse patient.[facility] FOR RECORDS PERTAINING TO PATIENTS [...] BE BASED ON THE PRIMARY CLINICAL RECORDS. [facility]. provides no warranty or guarantee of the accuracy or completeness of information in this document.
[2025-04-15 11:50] VITALS: BP 141/92; PULSE 83; TEMP 36.8; O2SAT 97
--- NOTE | 2025-04-15 11:50 | PC.NURSE ---
Jaz and 7 day old Zaina arrive for follow up. Parents states are tired but expected Mom reports has had intermittent headache, feels better after napping. No other complaints offered. BP is 141/92 and 140/85. No medications or history of elevated BP. States has been up since 5AM with NB and no breakfast yet. Reviewed care for self after baby and reportable S/S of elevated BP. Otherwise, VSS and assessment WNL for Jaz. Baby Zaina is doing well per parents report. Wakes to feed every 2-2.5 hours, nursing 20 min each breast, latching well. Parents report 8-10 wet and stool diapers in 24 hour window. States baby transitioned to yellow stools on day 4 of life. VSS and assessment WNL for Zaina. Weight is 6-9.5 today. Baby to breast and latches well, audible swallows noted and nursed 18 minutes before releasing the latch. No concerns voiced by parents. Discussed medications for Bi-polar and . Welbutrin and Buspar both L3 per Radha's medications in Moms milk. Discussed returning to meds as needed for health of both mom and baby. Will see care provider next week for discussion of same. Aware of [facility]OM[facility] group and to call for questions or concerns. Family leaves at this time.
== END 2025-04-15 11:55 | disposition home or self-care (01) ==
LOC: FBCO 08:21
PROVIDERS: PCP Nurse Practitioner Family; Visit Provider Obstetrics & Gynecology
DX: Z39.1 Encounter for care and examination of lactating mother (principal)